=== PATIENT | male | born 1960 | race African-American/Black ===

== ENCOUNTER 2022-11-09 23:04 | Emergency (ER) | payer OTHER, SELFPAY ==
--- NOTE | ~2022-11-09 | CT_ITS ---
EXAMINATION: CT facial & cervical spine wo DATE: 11/10/2022 INDICATION: Head injury TECHNIQUE: Computed tomography (CT) of the maxillofacial region and cervical spine was performed with out intravenous contrast. The dose-length product (DLP) was 439 mGy-cm. Automated exposure control an d iterative reconstruction technique were employed. COMPARISON: None FINDINGS: MAXILLOFACIAL CT: There is complete opacification of the right maxillary sinus. Soft tissue extends into the right nasa l cavity. There is opacification of the right mastoid air cells. There is mucosal thickening of the e thmoidal air cells. No facial fracture is identified. Multiple dental caries are noted. There is a [place] anteriorly in the mandible CERVICAL SPINE CT: There are 2 mm of retrolisthesis of C5 on C6 and C6 on C7. There is severe loss of intervertebral dis c space height at C5-6 and C6-7. There is no fracture. The odontoid process is intact. There is multi level mild facet and uncovertebral joint osteoarthritis. A tracheostomy is noted. There is an old hea led fracture of the right clavicle. There is mild emphysema of the visualized lung apices. IMPRESSION: 1. No facial fracture identified. 2. Severe cervical spondylosis at C5-6 and C6-7 without acute findings. 3. Complete opacification of the right maxillary sinus with soft tissue extending into the nasal cavi ty. Direct visualization is recommended. 4. Right mastoiditis. Reviewed, dictated and finalized at location A. IMPRESSION: 1. No facial fracture identified. 2. Severe cervical spondylosis at C5-6 and C6-7 without acute findings. 3. Complete opacification of the right maxillary sinus with soft tissue extendi ng into the nasal cavity. Direct visualization is recommended. 4. Right mastoiditis.
--- NOTE | ~2022-11-09 | CT_ITS ---
EXAMINATION: CT brain wo con INDICATION: Head injury COMPARISON: None TECHNIQUE: Standard unenhanced head CT. The dose-length product (DLP) was 681 mGy-cm. The mA was adju sted according to patient size. Iterative reconstruction technique was employed. FINDINGS: Motion artifact slightly limits the examination. There is no acute intraparenchymal hemorrh age. No evidence of mass lesion. No evidence of acute infarction. There is an old right occipital inf arct. There is moderate periventricular and subcortical hypodensity probably related to small vessel ischemic disease. There is moderate prominence of the sulci and ventricles related to cerebral atroph y. Intracranial calcified cerebral atherosclerosis is noted. There are no extra-axial collections. Th ere is no mass effect or midline shift. The orbits and soft tissues are unremarkable. There is comple te opacification of the right maxillary sinus and near complete opacification of the right nasal cavi ty. IMPRESSION: 1. No acute intracranial abnormality. 2. Age related findings. Reviewed, dictated and finalized at location A.
[2022-11-09 23:09] VITALS: BP 143/93; PULSE 100; RESP 22; TEMP 36.9; O2SAT 98
--- NOTE | 2022-12-03 00:39 | ED.GENADULT ---
HPI - General Adult General Chief complaint: Fall Stated complaint: fall Time Seen by Provider: 11/09/22 23:27 History of Present Illness HPI narrative: Patient 62-year-old gentleman who presents the emergency department with chief complaint of fall from bed. Patient is a bedbound patient with a chronic tracheostomy that presents from a local nursing facility after he apparently rolled out of bed and struck his head. The nursing staff is unsure of how the patient managed to get out of the bed since he is immobile there reports that there is an abrasion to the nose and there is a small contusion to the forehead. The patient has no other complaints. Related Data Home Medications Medication Instructions Recorded Confirmed atorvastatin 40 mg tablet 40 mg feeding tube DAILY 11/14/22 11/15/22 clobazam 20 mg tablet 20 mg feeding tube BID 11/14/22 11/15/22 divalproex 125 mg capsule,delayed 500 mg QID 11/14/22 11/15/22 release sprinkle fluticasone propionate 50 1 spray intranasal DAILY 11/14/22 11/15/22 mcg/actuation nasal spray,suspension folic acid 1 mg tablet 1 mg feeding tube DAILY 11/14/22 11/15/22 lacosamide 200 mg tablet 200 mg feeding tube BID 11/14/22 11/15/22 tamsulosin 0.4 mg capsule 0.4 mg PO DAILY 11/14/22 11/15/22 aspirin 81 mg chewable tablet 81 mg feeding tube DAILY 11/15/22 11/15/22 cetirizine 10 mg disintegrating 10 mg feeding tube DAILY 11/15/22 11/15/22 tablet enoxaparin 40 mg/0.4 mL 40 mg subcut DAILY 11/15/22 11/15/22 subcutaneous syringe guaifenesin 200 mg/5 mL oral liquid 100 mg feeding tube Q6H 11/15/22 11/15/22 levetiracetam 1,000 mg tablet 2,000 mg PO BID 11/15/22 11/15/22 midazolam 5 mg/spray (0.1 mL) 1 spray intranasal Q10M PRN 11/15/22 11/15/22 nasal spray (Nayzilam) Seizure Activity thiamine HCl (vitamin B1) 100 mg 100 mg feeding tube DAILY 11/15/22 11/15/22 tablet Allergies Allergy/AdvReac Type Severity Reaction Status Date / Time clonazepam Allergy Unknown Verified 11/14/22 22:11 Review of Systems Review of Systems: ROS unobtainable: Yes unobtainable due to medical condition PMFSH Past Medical History Medical History AMS (altered mental status) History of multiple strokes Tracheostomy in place Vegetative state Social History Social History Smoking status: Never smoker Alcohol intake: never Substance use: never Substance use type: does not use Spiritual care concerns: No Exam Narrative: GENERAL: Well-appearing, well-nourished, and in no acute distress. HEAD: Normocephalic, abrasion to the nose and contusion of the forehead. EYES: PERRLA and EOMI. ENT: Nares clear, no rhinorrhea or epistaxis. Mucous membranes moist. NECK: Supple. Tracheostomy in place CHEST: Clear to auscultation. No respiratory distress. HEART: Regular rate and rhythm. No murmur heard. Normal peripheral pulses. ABDOMEN: Soft, nontender, nondistended, normal active bowel sounds. EXTREMITIES: Extremity showed no signs of trauma. No edema. SKIN: Warm, dry, no rash. NEURO: No new focal deficits. Alert and oriented to patient's baseline. . Course Vital Signs Vital signs: Vital Signs Temperature 36.9 C 11/09/22 23:09 Pulse Rate 100 11/09/22 23:09 Respiratory Rate 22 H 11/09/22 23:09 Blood Pressure 143/93 H 11/09/22 23:09 Pulse Oximetry 98 11/09/22 23:09 Oxygen Delivery Room Air 11/09/22 23:09 Temperature 36.9 C 11/09/22 23:09 Pulse Rate 100 11/09/22 23:09 Respiratory Rate 22 H 11/09/22 23:09 Blood Pressure 143/93 H 11/09/22 23:09 Pulse Oximetry 98 11/09/22 23:09 Oxygen Delivery Room Air 11/09/22 23:09 Medical Decision Making MDM Narrative Medical decision making narrative: Differential diagnosis includes intracranial injury, facial fracture, cervical spine fracture. Helical imaging was obtained of the he
== END 2022-11-10 05:22 ==
PROVIDERS: Emergency Provider Emergency Medicine; PCP Nurse Practitioner Family
DX: S00.83XA Contusion of other part of head, initial encounter (principal); S00.31XA Abrasion of nose, initial encounter; Z86.73 Personal history of transient ischemic attack (TIA), and cerebral infarction without residual deficits; R40.3 Persistent vegetative state; Z93.0 Tracheostomy status; Z74.01 Bed confinement status; Z79.82 Long term (current) use of aspirin; W06.XXXA Fall from bed, initial encounter
CPT/HCPCS: 70450; 70486; 72125; 99284

== ENCOUNTER 2022-11-14 18:23 | Inpatient (IN) | payer OTHER, SELFPAY ==
[2022-11-14] VITALS (22 sets, daily range): BP systolic 129–157; BP diastolic 59–83; PULSE 120–145; RESP 19–34; TEMP 37; O2SAT 35–100
--- NOTE | ~2022-11-14 | XR_ITS ---
XR chest 1V portable 11/16/2022 10:33 Indication: Right lower lobe collapse Procedure: AP portable chest Comparison: Comparison to multiple prior studies sequentially, with oldest reviewed study dated 11/14. Findings: Improving right basilar lung collapse with improved aeration. No significant effusion. No p neumothorax. Heart size normal. Left lung clear. Impression: 1: Improving right basilar lung collapse with improved aeration. Reviewed, dictated and finalized at location L. Impression: 1: Improving right basilar lung collapse with improved aeration.
--- NOTE | ~2022-11-14 | CT_ITS ---
Clinical Indication: Mediastinal shift, right-sided volume loss CT Scan of the Chest with Contrast: Technique: Contiguous sections were acquired throughout the chest after intravenous administration of 100 cc of Omnipaque 350. Dose reduction technique was used on this scan by utilizing automated expos ure control and iterative reconstruction technique. The dose-length product (DLP) was 481.19 mGy-cm. Findings: There is no evidence of any significant mediastinal, hilar or axillary lymphadenopathy. There is no f illing defect in the pulmonary arterial tree to suggest pulmonary embolus. There is no evidence of ao rtic dissection or aneurysm. Coronary artery calcifications are present. There is no evidence of pleural or pericardial effusion. There is complete, dense consolidation and volume loss of the right lower lobe, suggestive of atelect asis versus possibly pneumonia. Left lung is clear. Images through the upper abdomen reveal no abnormalities. Impression: Complete right lower lobe atelectasis. Underlying pneumonia cannot be excluded. Correlate for signs/s ymptoms of infection. Reviewed, dictated and finalized at location . Impression: Complete right lower lobe atelectasis. Underlying pneumonia cannot be excluded. Correlate for signs/symptoms of infection.
--- NOTE | ~2022-11-14 | XR_ITS ---
XR chest 1V portable 11/14/2022 18:55 Indication: Shortness of breath and congestion Procedure: AP portable chest Comparison: No prior studies for comparison. Findings: There is a tracheostomy tube present. There is right thoracic volume loss. Small right pleu ral effusion. Left lung clear. No focal consolidation of the right lung. No definite pneumothorax. Pr ominent right paratracheal soft tissue. Cannot exclude lymphadenopathy. Impression: 1: Right thoracic volume loss with mediastinal shift to the right. 2: Small right pleural effusion. Reviewed, dictated and finalized at location A. Impression: 1: Right thoracic volume loss with mediastinal shift to the right. 2: Small right pleural effusion.
--- NOTE | ~2022-11-14 | XR_ITS ---
Portable chest x-ray Comparison: 11/15/2022 Clinical History: Right lower lobe collapse Findings: Tracheostomy cannula present. There is extensive haziness bilaterally, right lung worse th an left. Cardiomediastinal silhouette is stable. Bones and soft tissues are unremarkable. Impression: Extensive hazy pulmonary disease, right lung worse than left. Correlate for mild pulmonary edema or i nfection, and/or atelectatic change. Tracheostomy cannula. Reviewed, dictated and finalized at location . Impression: Extensive hazy pulmonary disease, right lung worse than left. Correlate for mil d pulmonary edema or infection, and/or atelectatic change. Tracheostomy cannula.
--- NOTE | ~2022-11-14 | XR_ITS ---
XR chest 1V portable 11/15/2022 09:42 Indication: Right lower lobe collapse Procedure: AP portable chest Comparison: 11/14/2022 Findings: There is persistent collapse of the right lower lung with mediastinal shift to the right. S uperimposed pneumonia not excluded. No pneumothorax. No acute osseous abnormality. There is a tracheo stomy tube present. Impression: 1: Right lower lobe collapse. Cannot exclude underlying superimposed pneumonia. Reviewed, dictated and finalized at location [] Impression: 1: Right lower lobe collapse. Cannot exclude underlying superimposed pneumonia.
--- NOTE | ~2022-11-14 | XR_ITS ---
Portable chest x-ray Comparison: 11/16/2022 Clinical History: Right lower lobe collapse Findings: Tracheostomy cannula present. Small right pleural effusion present. There is right basilar airspace disease. There is discoid left basilar atelectasis. Cardiomediastinal silhouette is stable . Bones and soft tissues are unremarkable. Impression: Small right pleural effusion with probable right basilar pulmonary edema/atelectasis. Correlate curre ntly for pneumonia. Discoid left basilar atelectasis. Reviewed, dictated and finalized at location . Impression: Small right pleural effusion with probable right basilar pulmonary edema/atelec tasis. Correlate currently for pneumonia. Discoid left basilar atelectasis.
--- NOTE | 2022-11-14 18:32 | ECG_ITS ---
Measurements Intervals Alexander Rate: 129 P: 55 MD: 151 QRS: -10 QRSD: 83 T: 74 QT: 273 QTc: 401 Interpretive Statements SINUS TACHYCARDIA PREVIOUS ANTERIOR WALL NM ABNORMAL ECG NO PREVIOUS ECG AVAILABLE FOR COMPARISON Electronically Signed On 11-15-2022 15:44:20 CDT by Chai Lentz M.D.
--- NOTE | 2022-11-14 18:44 | ED.GENADULT ---
HPI - General Adult General Chief complaint: Shortness of Breath/Dyspnea <David Cash MD - Last Filed: 11/14/22 22:27> Stated complaint: difficulty in breathing with trach <David Cash MD - Last Filed: 11/14/22 22:27> Time Seen by Provider: 11/14/22 18:24 <David Cash MD - Last Filed: 11/14/22 22:27> History of Present Illness HPI narrative: 62-year-old male presented emerged department from local group home for evaluation of increased shortness of breath and hypoxia. Patient has history of epilepsy, dementia and patient has a tracheostomy. Patient was having hypoxia at the nursing facility and they are having trouble maintaining his oxygenation patient did have copious amounts of drainage from his tracheostomy. When EMS arrived they were able to help with suction and this helped with his oxygenation. Upon arrival to the emergency department patient is stable but does have very coarse lung sounds. Patient does have history of CVA, chronic respiratory failure, tracheostomy with humidified room air. <David Cash MD - Last Filed: 11/14/22 22:27> Related Data Home medications: Home Medications Medication Instructions Recorded Confirmed atorvastatin 40 mg tablet 40 mg feeding tube DAILY 11/14/22 11/15/22 clobazam 20 mg tablet 20 mg feeding tube BID 11/14/22 11/15/22 divalproex 125 mg capsule,delayed 500 mg QID 11/14/22 11/15/22 release sprinkle fluticasone propionate 50 1 spray intranasal DAILY 11/14/22 11/15/22 mcg/actuation nasal spray,suspension folic acid 1 mg tablet 1 mg feeding tube DAILY 11/14/22 11/15/22 lacosamide 200 mg tablet 200 mg feeding tube BID 11/14/22 11/15/22 tamsulosin 0.4 mg capsule 0.4 mg PO DAILY 11/14/22 11/15/22 aspirin 81 mg chewable tablet 81 mg feeding tube DAILY 11/15/22 11/15/22 cetirizine 10 mg disintegrating 10 mg feeding tube DAILY 11/15/22 11/15/22 tablet enoxaparin 40 mg/0.4 mL 40 mg subcut DAILY 11/15/22 11/15/22 subcutaneous syringe guaifenesin 200 mg/5 mL oral liquid 100 mg feeding tube Q6H 11/15/22 11/15/22 levetiracetam 1,000 mg tablet 2,000 mg PO BID 11/15/22 11/15/22 midazolam 5 mg/spray (0.1 mL) 1 spray intranasal Q10M PRN 11/15/22 11/15/22 nasal spray (Nayzilam) Seizure Activity scopolamine base 1 mg over 3 days 1 patch transdermal Q72H 11/15/22 11/15/22 transdermal patch thiamine HCl (vitamin B1) 100 mg 100 mg feeding tube DAILY 11/15/22 11/15/22 tablet <David Cash MD - Last Filed: 11/14/22 22:27> Allergies/adverse reactions: Allergies Allergy/AdvReac Type Severity Reaction Status Date / Time clonazepam Allergy Unknown Verified 11/14/22 22:11 <David Cash MD - Last Filed: 11/14/22 22:27> Review of Systems Review of Systems: ROS unobtainable: Yes unobtainable due to medical condition <David Cash MD - Last Filed: 11/14/22 22:27> Exam Narrative: APPEARANCE: Patient is nonverbal HEAD: normocephalic, atraumatic. EYES: PERRLA/EOMI, conjunctivae clear. NOSE: Normal no drainage EARS:TMS clear with good light reflex. THROAT: Pharynx clear, no exudate. NECK: Tracheostomy in place with no active drainage RESPIRATORY: Airway patent, respirations nonlabored. Clear to auscultation bilaterally, no rales, rhonchi, wheezing. CARDIOVASCULAR: Tachycardia ABDOMINAL: Soft, nontender, nondistended, normal bowel sounds MUSCULOSKELETAL: Moves all extremities. Strength/ROM intact, No edema, No calf tenderness. NEURO: Alert. At his baseline per nursing and EMS SKIN: Warm, dry. Normal Color <David Cash MD - Last Filed: 11/14/22 22:27> Course Course Emergency Course: 62-year-old male presented ED for evaluation of increased secretions through his tracheostomy tube. Patient was suctioned and had improvement of his oxygenation. Patient does not appear to have an oxygen requirement at the group home and is on humidified room air. Patient is on 4 L of blow-by oxygen while in t
[2022-11-14 18:53] LABS: Alveolar/Arterial O2 Gradient 124.3 mmHg; Base Excess ABG 4.1 mEq/l (+/-2.0); Device HIGH FLOW THERAPY; Fractional Inspired Oxygen 35 %; HCO3 ABG 27.4 mEq/l (22.0-26.0); Modified Allen's Test Pass; Oxygen Content ABG 18.3 %vol (16.0-22.0); Oxygen Saturation ABG 96.9 % (95.0-100.0); Oxyhemoglobin 94.7 % THb (90.0-100.0); PCO2 ABG 36.7 mmHg (35.0-45.0); PO2 ABG 82.6 mmHg (80.0-100.0); PO2 FiO2 Ratio Arterial Blood 2.36 %; Site Drawn RIGHT RADIAL; Total Hemoglobin 13.7 g/dL (12.0-18.0); pH ABG 7.491 (7.350-7.450)
[2022-11-14] MEDS: ALBUTEROL SULFATE NEB 2.5 MG/3 ML INH 5 MG INHALATION (18:56)
[2022-11-14 20:35] LABS: Basophils Percent Auto 0.1 % (0.2-1.2); Eosinophils Absolute Auto 0.1 K/mm3 (0-0.3); Eosinophils Percent Auto 0.4 % (0-4.4); Hematocrit 41.2 % (42.0-52.0); Hemoglobin 13.6 g/dL (14.0-18.0); Immature Granulocyte Absolute 0.06 K/mm3 (0.00-0.031); Immature Granulocyte Percent A 0.4 % (0-0.5); Immature Platelet Fraction Pct 14.4 % (0.9-11.2); Lymphocytes Absolute Auto 1.97 K/mm3 (0.9-3.2); Lymphocytes Percent Auto 14.2 % (18.3-44.2); Mean Corpuscular Hemoglobin 31.1 pg (26-34); Mean Corpuscular Volume 94.3 fl (80-100); Mean Platelet Volume 13.1 fl (7.4-10.4); Monocytes Percent Auto 14.3 % (2.6-8.5); Neutrophils Absolute Auto 9.8 K/mm3 (1.3-6.7); Neutrophils Percent Auto 70.6 % (45.5-73.1); Platelet Count Result 109 k/mm3 (150-375); Red Blood Count 4.37 M/mm3 (4.6-6.20); Red Cell Distribution Width 15.1 % (11.5-14.5); White Blood Count 13.9 K/mm3 (4.5-10.0)
[2022-11-14] MEDS: SODIUM CHLORIDE 0.9% IV 1,000 ML 999 ML IV CONT (20:44)
[2022-11-14 20:46] LABS: Alanine Aminotransferase 30 U/L (6-50); Albumin Level 3.8 g/dL (3.5-5.1); Alkaline Phosphatase 113 U/L (38-126); Anion Gap 6 mmol/L (8-16); Aspartate Amino Transferase 29 U/L (17-59); Bilirubin,Total 0.5 mg/dL (0.2-1.3); Blood Urea Nitrogen 14 mg/dL (9-20); Calcium 9.7 mg/dL (8.4-10.2); Carbon Dioxide 31 mmol/L (22-30); Chloride 101 mmol/L (98-107); Estimated CRCL calculation 90 ml/min; Estimated Glomerular Filt Rate > 60; Glucose 119 mg/dL (65-110); Potassium 4.4 mmol/L (3.4-5.0); Sodium 138 mmol/L (137-145)
[2022-11-14 20:54] LABS: NT Pro B Type Natriuretic Pept 309 pg/mL (19.9-100)
[2022-11-14 21:30] LABS: Influenza A QL RT-PCR Negative (Negative); Influenza B QL RT-PCR Negative (Negative); RSV RNA, RT-PCR Negative (Negative); SARS-CoV-2 RNA PCR Negative (Negative)
--- NOTE | 2022-11-14 21:38 | PM.IMHP ---
H&P: HPI History of Present Illness Date/Time: 11/14/22 21:38 Chief Complaint: Increased secretions Narrative: This is a 62-year-old male with past medical history significant for multiple strokes, bed reading, chronic respiratory failure with chronic tracheostomy, altered mental status, seizure disorder, benign prostatic hyperplasia, left AKA. Patient was brought for evaluation to the emergency room after he was noted to have worsened copious amount of secretions coming out of his tracheostomy which is greenish in color. Most of the history has been obtained upon reviewing medical records and discussion with emergency room doctor. Patient is unable to provide any history. In emergency room patient was noted to be tachycardic, a CT angiogram of the chest did not show acute pulmonary embolism but was significant for atelectasis, a chest x-ray was reported as: XR chest 1V portable 11/14/2022 18:55 Indication: Shortness of breath and congestion Procedure: AP portable chest Comparison: No prior studies for comparison. Findings: There is a tracheostomy tube present. There is right thoracic volume loss. Small right pleural effusion. Left lung clear. No focal consolidation of the right lung. No definite pneumothorax. Prominent right paratracheal soft tissue. Cannot exclude lymphadenopathy. Impression: 1: Right thoracic volume loss with mediastinal shift to the right. 2: Small right pleural effusion. Review of Systems Review of Systems: ROS unobtainable: Yes unobtainable due to medical condition (Tracheostomy) and unobtainable due to mental status (Encephalopathy) Meds Home Medications and Allergies Home Medications Medication Instructions Recorded Confirmed Type atorvastatin 40 mg tablet 40 mg feeding tube DAILY 11/14/22 11/15/22 History clobazam 20 mg tablet 20 mg feeding tube BID 11/14/22 11/15/22 History divalproex 125 mg capsule,delayed 500 mg QID 11/14/22 11/15/22 History release sprinkle fluticasone propionate 50 1 spray intranasal DAILY 11/14/22 11/15/22 History mcg/actuation nasal spray,suspension folic acid 1 mg tablet 1 mg feeding tube DAILY 11/14/22 11/15/22 History lacosamide 200 mg tablet 200 mg feeding tube BID 11/14/22 11/15/22 History tamsulosin 0.4 mg capsule 0.4 mg PO DAILY 11/14/22 11/15/22 History aspirin 81 mg chewable tablet 81 mg feeding tube DAILY 11/15/22 11/15/22 History cetirizine 10 mg disintegrating 10 mg feeding tube DAILY 11/15/22 11/15/22 History tablet enoxaparin 40 mg/0.4 mL 40 mg subcut DAILY 11/15/22 11/15/22 History subcutaneous syringe guaifenesin 200 mg/5 mL oral liquid 100 mg feeding tube Q6H 11/15/22 11/15/22 History levetiracetam 1,000 mg tablet 2,000 mg PO BID 11/15/22 11/15/22 History midazolam 5 mg/spray (0.1 mL) 1 spray intranasal Q10M PRN 11/15/22 11/15/22 History nasal spray (Nayzilam) Seizure Activity scopolamine base 1 mg over 3 days 1 patch transdermal Q72H 11/15/22 11/15/22 History transdermal patch thiamine HCl (vitamin B1) 100 mg 100 mg feeding tube DAILY 11/15/22 11/15/22 History tablet Allergies Allergy/AdvReac Type Severity Reaction Status Date / Time clonazepam Allergy Unknown Verified 11/14/22 22:11 Vital Signs Vital Signs - 24 hr 11/14/22 18:29 11/14/22 18:39 11/14/22 18:39 Temperature 98.6 F Pulse Rate 133 H 132 H Respiratory Rate 31 H Blood Pressure 148/77 H Pulse Oximetry 99 35 L Oxygen Delivery High Flow Therapy with Tr High Flow Therapy with Tr Oxygen Flow Rate 30 30 Fraction of Inspired Oxygen 35 11/14/22 19:03 11/14/22 18:35 11/14/22 19:19 Temperature Pulse Rate 120 H 130 H Respiratory Rate 30 H 32 H Blood Pressure Pulse Oximetry 99 Oxygen Delivery High Flow Therapy with Tr Oxygen Flow Rate 30 Fraction of Inspired Oxygen 35 11/14/22 19:21 11/14/22 19:00 11/14/22 19:15 Temperature Pulse Rate 125 H 132 H 140 H Respiratory Rate 30 H 32 H 28 H Blood Pressure 1
[2022-11-14] MEDS: CEFEPIME 2 GM/NS 50 ML 2 GM/50 ML BAG IVPB (22:41)
[2022-11-14] MEDS: AZITHROMYCIN 500 MG/NS 250 ML 500 MG/250 ML BAG 250 MG IVPB (22:41)
[2022-11-14] MEDS: ENOXAPARIN 80 MG/0.8 ML SYRINGE 67 MG SUB-Q (22:42)
[2022-11-15] VITALS (24 sets, daily range): BP systolic 112–147; BP diastolic 59–93; PULSE 79–123; RESP 18–30; TEMP 36.4–37.4; O2SAT 90–100; BMI 20.6
--- NOTE | 2022-11-15 01:52 | ADMGEN ---
This patient, Bi Tabor, was admitted to IMU Room 206-01. Patient/family oriented to hospital policies and general routines including ID bracelet, bed and alarms, visiting hours, pain management, procedures, bathroom and other care routines, personal items, smoking policy, room service/diet, and visiting hours. Information on how to activate the Rapid Response Team has been discussed. Patient/Family are encouraged to report perceived risks to care and to ask questions if they do not understand what they are told or what they should do.
[2022-11-15] MEDS: CEFEPIME 2 GM/NS 50 ML 2 GM/50 ML BAG IVPB ×3 (05:23→21:12)
[2022-11-15 05:34] LABS: Estimated CRCL calculation 123 ml/min; Estimated Glomerular Filt Rate > 60
[2022-11-15] MEDS: THIAMINE HCL 100 MG TABLET FEED TUBE (09:17)
[2022-11-15] MEDS: ASPIRIN 81 MG CHEWABLE TABLET FEED TUBE (09:17)
[2022-11-15] MEDS: DIVALPROEX SODIUM SPRINKLE 125 MG CAP.DR 500 MG FEED TUBE ×4 (09:17→20:54)
[2022-11-15] MEDS: FOLIC ACID 1 MG TABLET FEED TUBE (09:17)
[2022-11-15] MEDS: ATORVASTATIN 40 MG TABLET FEED TUBE (09:17)
[2022-11-15] MEDS: levETIRAcetam ORAL SOL 500 MG/5 ML UDC 2000 MG FEED TUBE ×2 (09:18→16:45)
[2022-11-15] MEDS: FLUTICASONE PROPIONATE 0.05% NA SPR 16 GM BTL (*BKC) 1 SPRAY NASAL (09:18)
[2022-11-15] MEDS: WATER, STERILE FOR INJECTION 10 ML VIAL 30 ML XX (09:18)
[2022-11-15] MEDS: LACOSAMIDE (*CRX) 200 MG TABLET FEED TUBE ×2 (09:21→16:48)
[2022-11-15] MEDS: LORATADINE 10 MG TABLET FEED TUBE (09:22)
[2022-11-15] MEDS: ENOXAPARIN 40 MG/0.4 ML SYRINGE SUB-Q (09:24)
[2022-11-15] MEDS: SCOPOLAMINE 1.5 MG PATCH 1 MG TRANSDERM (09:31)
[2022-11-15] MEDS: TAMSULOSIN HCL 0.4 MG CAPSULE XX (10:50)
[2022-11-15] MEDS: diazePAM (*CRX) 5 MG TABLET PO (10:50)
--- NOTE | 2022-11-15 11:23 | PM.IMPN ---
Progress Note: A&P Assessment and Plan (1) Increased tracheal secretions: Code(s): J39.8 - Other specified diseases of upper respiratory tract Status: Acute Assessment and Plan: Admit to IMU Patient started on cefepime vanc and Zithromax Chest x-ray significant for atelectasis likely secondary to mucus plugging Pulmonology consult will likely need bronchoscopy Breathing treatments q.4 hours (2) Hypoxia: Code(s): R09.02 - Hypoxemia Status: Acute Assessment and Plan: Patient has been maintaining oxygen saturation Currently on Airvo Earlier on patient was on trach collar (3) Unilateral complete AKA: Code(s): S78.119A - Complete traumatic amputation at level between unspecified hip and knee, initial encounter Status: Acute Assessment and Plan: Fall precautions (4) Tracheostomy in place: Code(s): Z93.0 - Tracheostomy status Status: Acute Assessment and Plan: Tracheostomy care (5) Chronic respiratory failure with hypoxia: Code(s): J96.11 - Chronic respiratory failure with hypoxia Status: Acute Assessment and Plan: Patient has a chronic trach on trach collar (6) Vegetative state: Code(s): R40.3 - Persistent vegetative state Status: Acute Assessment and Plan: Unchanged (7) History of multiple strokes: Code(s): Z86.73 - Personal history of transient ischemic attack (TIA), and cerebral infarction without residual deficits Status: Acute Assessment and Plan: Unchanged (8) AMS (altered mental status): Code(s): R41.82 - Altered mental status, unspecified Status: Acute Assessment and Plan: Supportive care Continue to monitor Subjective Date/time seen: 11/15/22 11:23 Interval history: No acute issues overnight Exam Narrative: Patient is laying in a stretcher Const: General: comfortable, no acute distress, well developed, alert, awake, ill appearing, lethargic, patient obtunded, average body habitus and thin Nutritional Appearance: average body habitus and thin Orientation/consciousness: patient oriented x3, patient obtunded and lethargic HENMT: Head: normal to inspection, normocephalic and atraumatic Ears: hearing grossly normal bilaterally Face/Nose/Sinus: normal facial exam Face and sinus: normal facial exam Other: Trach in place noted heavy secretions greenish Eyes: General: appearance normal, both eyes and all related structures Pupils: Equal, round and reactive pupils present EOM: EOMs intact bilaterally Neck: Neck: full ROM, no lymphadenopathy and no JVD Thyroid: thyroid normal Lymphatic: no lymphadenopathy noted Resp: Effort & Inspection: normal respiratory effort and able to speak in complete sentences Auscultation: clear to auscultation bilaterally, rales, diminished lung sounds and other (Course of breaths sounds) Cardio: Jugular venous distension: no JVD Rate: regular rate Rhythm: regular rhythm Heart sounds: S1 normal heart sound present and S2 normal heart sound present GI: Inspection: other (PEG tube in place) : General: Yes deferred Skin: Rashes: no rashes Wounds: no wounds Neuro: General: patient oriented x3, CN's II-XI intact bilaterally, patient obtunded and Unable to assess gait Cranial nerves: Yes CN's II-XII intact bilaterally, Yes Equal, round and reactive pupils present, Yes Bilaterally intact EOM present and Yes facial symmetry Cognition (Neuro): normal cognition and abnormal cognition (Lethargy, obtundation) Speech: normal speech Gait exam (Neuro): Normal gait present and Unable to assess gait Motor exam (neuro): 5/5 motor strength present throughout Extrem: General: normal to inspection, full ROM, no joint enlargement and no pedal edema Other: Left AKA Right leg Unna boot is on Objective Data Vital Signs Vital Signs: Vital Signs - 24 hr 11/14/22 18:29 11/14/22 18:39 11/14/22 18:39 Temperur
--- NOTE | 2022-11-15 11:57 | PM.CNPUL ---
Assessment and Plan Assessment and plan (1) Lung collapse: Code(s): J98.19 - Other pulmonary collapse Status: Acute Assessment and Plan: patient with a history of CVA, dementia, tracheostomy and PEG tube and persistent vegetative state is written in the chart. Presented to [facility] on 11/14/2022 with shortness of breath, hypoxemia and increased green secretions from his tracheostomy and has a right lower lobe collapse. I have no prior imaging to determine if the right lower lobe collapse is an acute, recurrent or chronic problem. Covid, influenza and RSV RT PCR studies negative. Etiology of the right lower lobe collapse includes pneumonia, mucus plugging, aspiration of foreign body and or cancer. 11/15 Patient is afebrile, patient is currently on high-flow nasal cannula at 30 L and 28% FiO2 with saturations 95%. I spoke with respiratory therapy and he had minimal secretions with suctioning this morning. Chest x-ray with continued right lower lobe collapse. Plan: agree with treating for pneumonia from living facility with cefepime, vancomycin and azithromycin, all day 2. I will send sputum culture, urine Legionella, urine pneumococcal and serum mycoplasma IgM titers. Albuterol, ipratropium, dornase, Mucomyst, chest PT and vest therapy were added. I will increase his guaifenesin liquid to 400 mg p.o. q.4 hours. I have talked to respiratory therapy and the bedside nursing staff and each service will alternatively suction the patient every 4 hours so that he gets suctioned every 2 hours. I will repeat a chest x-ray in the morning. Will follow with you. History of Present Illness History of Present Illness Consult date: 11/15/22 Chief complaint: Resp Failure Narrative: 11/15/2022: This is a new pulmonary consultation for right lower lobe lung collapse. 62-year-old male with a history of CVA, chronic respiratory failure status post tracheostomy and PEG tube, seizure disorder, dementia, left AKA presented from the care home on 11/14/2022 for shortness of breath, hypoxia and increased green secretions from his tracheostomy. The patient is nonverbal and history was obtained from the chart In the emergency department the patient had a white blood cell count of 13.9, eosinophils 0.4%, creatinine 0.7, BNP 309, ABG on 35% FiO2 7.49/37/83. [place] id, influenza and RSV RT PCR studies negative. Chest x-ray demonstrated right lower lobe collapse with a tracheostomy in place. CT angiogram of the chest showed negative PE, right lower lobe collapse. Patient was admitted to the hospital and treated for possible pneumonia with vancomycin, azithromycin and cefepime all started on 11/14. 11/15/22: Patient is nonverbal, follows no commands and does not regard verbal or painful stimuli. Patient is currently on high-flow nasal cannula at 30 L and 28% FiO2 with saturations 95%. I spoke with respiratory therapy and he had minimal secretions with suctioning this morning. Chest x-ray with continued right lower lobe collapse. Albuterol, ipratropium, dornase, Mucomyst, chest PT and vest therapy were added this morning. DATA: 11/14/22: Clinical Indication: Mediastinal shift, right-sided volume loss CT Scan of the Chest with Contrast: Technique: Contiguous sections were acquired throughout the chest after intravenous administration of 100 cc of Omnipaque 350. Dose reduction technique was used on this scan by utilizing automated exposure control and iterative reconstruction technique. The dose-length product (DLP) was 481.19 mGy-cm. Findings: There is no evidence of any significant mediastinal, hilar or axillary lymphadenopathy. There is no filling defect in the pulmonary arterial tree to suggest pulmonary embolus. There is no evidence of aortic dissection or aneurysm. Coronary artery calcifications are present. There is no evidence of pleural or pericardial effusion. There is complete, dense conso
[2022-11-15] MEDS: VANCOMYCIN 1,250 MG/NS 250 ML 1,250 MG/250 ML BAG 166.67 MG IVPB (12:01)
[2022-11-15] MEDS: guaiFENesin 200 MG/10 ML UDC 100 MG FEED TUBE (12:02)
[2022-11-15] MEDS: IPRATROPIUM BR 0.02% INH SOLN 0.5 MG/2.5 ML VIAL INHALATION ×3 (12:46→19:55)
[2022-11-15] MEDS: ALBUTEROL SULFATE NEB 2.5 MG/3 ML INH INHALATION ×3 (12:46→19:54)
[2022-11-15] MEDS: ACETYLCYSTEINE 20% INHAL SOLN 800 MG/4 ML VIAL 200 MG INHALATION ×2 (12:47→19:54)
--- NOTE | 2022-11-15 13:15 | PHAR ---
Home med verified: Clobazam 20mg Take 1 tablet per G-tube BID. Br[facility] to [facility] blister [facility] #30 tablets total in 1 card
[2022-11-15] MEDS: guaiFENesin 200 MG/10 ML UDC 400 MG PO ×2 (16:42→20:54)
[2022-11-15] MEDS: DORNASE ALFA INH SOLN 1 MG/ML 2.5 ML AMP 2.5 MG INHALATION (19:54)
[2022-11-15] MEDS: AZITHROMYCIN 500 MG/NS 250 ML 500 MG/250 ML BAG 250 MG IVPB (21:50)
[2022-11-15] MEDS: VANCOMYCIN 1,250 MG/NS 250 ML 1,250 MG/250 ML BAG IVPB (23:14)
[2022-11-16] VITALS (25 sets, daily range): BP systolic 113–136; BP diastolic 60–75; PULSE 93–113; RESP 16–22; TEMP 36.4–36.8; O2SAT 95–100; BMI 20.6
[2022-11-16] MEDS: ALBUTEROL SULFATE NEB 2.5 MG/3 ML INH INHALATION ×6 (00:10→20:28)
[2022-11-16] MEDS: IPRATROPIUM BR 0.02% INH SOLN 0.5 MG/2.5 ML VIAL INHALATION ×6 (00:10→20:28)
[2022-11-16] MEDS: ACETYLCYSTEINE 20% INHAL SOLN 800 MG/4 ML VIAL 200 MG INHALATION ×4 (04:21→20:28)
[2022-11-16 05:21] LABS: Estimated CRCL calculation 150 ml/min; Estimated Glomerular Filt Rate > 60
[2022-11-16] MEDS: CEFEPIME 2 GM/NS 50 ML 2 GM/50 ML BAG IVPB ×3 (06:07→21:41)
[2022-11-16] MEDS: DORNASE ALFA INH SOLN 1 MG/ML 2.5 ML AMP 2.5 MG INHALATION (08:02)
[2022-11-16 09:26] LABS: Basophils Percent Auto 0.2 % (0.2-1.2); Eosinophils Absolute Auto 0.1 K/mm3 (0-0.3); Eosinophils Percent Auto 1.6 % (0-4.4); Hematocrit 38.2 % (42.0-52.0); Hemoglobin 11.9 g/dL (14.0-18.0); Immature Granulocyte Absolute 0.03 K/mm3 (0.00-0.031); Immature Granulocyte Percent A 0.4 % (0-0.5); Immature Platelet Fraction Pct 21.1 % (0.9-11.2); Lymphocytes Absolute Auto 2.04 K/mm3 (0.9-3.2); Lymphocytes Percent Auto 24.5 % (18.3-44.2); Mean Corpuscular HGB Conc 31.2 g/dl (32-36); Mean Corpuscular Hemoglobin 30.5 pg (26-34); Mean Corpuscular Volume 97.9 fl (80-100); Monocytes Absolute Auto 0.9 K/mm3 (0.1-0.6); Monocytes Percent Auto 10.3 % (2.6-8.5); Neutrophils Absolute Auto 5.3 K/mm3 (1.3-6.7); Platelet Count Result 81 k/mm3 (150-375); Red Cell Distribution Width 15.2 % (11.5-14.5); White Blood Count 8.3 K/mm3 (4.5-10.0)
[2022-11-16] MEDS: FLUTICASONE PROPIONATE 0.05% NA SPR 16 GM BTL (*BKC) 1 SPRAY NASAL (10:00)
[2022-11-16] MEDS: DIVALPROEX SODIUM SPRINKLE 125 MG CAP.DR 500 MG FEED TUBE ×4 (10:01→21:37)
[2022-11-16] MEDS: levETIRAcetam ORAL SOL 500 MG/5 ML UDC 2000 MG FEED TUBE ×2 (10:01→18:08)
[2022-11-16] MEDS: guaiFENesin 200 MG/10 ML UDC 400 MG PO ×5 (10:01→23:56)
[2022-11-16] MEDS: FOLIC ACID 1 MG TABLET FEED TUBE (10:02)
[2022-11-16] MEDS: TAMSULOSIN HCL 0.4 MG CAPSULE XX (10:02)
[2022-11-16] MEDS: LORATADINE 10 MG TABLET FEED TUBE (10:03)
[2022-11-16] MEDS: ENOXAPARIN 40 MG/0.4 ML SYRINGE SUB-Q (10:03)
[2022-11-16] MEDS: ASPIRIN 81 MG CHEWABLE TABLET FEED TUBE (10:03)
[2022-11-16] MEDS: ATORVASTATIN 40 MG TABLET FEED TUBE (10:03)
[2022-11-16] MEDS: THIAMINE HCL 100 MG TABLET FEED TUBE (10:03)
[2022-11-16 10:17] LABS: Anion Gap 7 mmol/L (8-16); Blood Urea Nitrogen 17 mg/dL (9-20); Calcium 9.3 mg/dL (8.4-10.2); Carbon Dioxide 28 mmol/L (22-30); Chloride 106 mmol/L (98-107); Estimated CRCL calculation 104 ml/min; Estimated Glomerular Filt Rate > 60; Glucose 115 mg/dL (65-110); Sodium 141 mmol/L (137-145)
--- NOTE | 2022-11-16 10:17 | PM.PNPUL ---
Progress Note: A&P Assessment and Plan (1) Lung collapse: Code(s): J98.19 - Other pulmonary collapse Status: Acute Assessment and Plan: patient with a history of CVA, dementia, tracheostomy and PEG tube and persistent vegetative state is written in the chart. Presented to [facility] on 11/14/2022 with shortness of breath, hypoxemia and increased green secretions from his tracheostomy and has a right lower lobe collapse. I have no prior imaging to determine if the right lower lobe collapse is an acute, recurrent or chronic problem. Covid, influenza and RSV RT PCR studies negative. Etiology of the right lower lobe collapse includes pneumonia, mucus plugging, aspiration of foreign body and or cancer. 11/15 Patient is afebrile, patient is currently on high-flow nasal cannula at 30 L and 28% FiO2 with saturations 95%. I spoke with respiratory therapy and he had minimal secretions with suctioning this morning. Chest x-ray with continued right lower lobe collapse. Plan: agree with treating for pneumonia from living facility with cefepime, vancomycin and azithromycin, all day 2. I will send sputum culture, urine Legionella, urine pneumococcal and serum mycoplasma IgM titers. Albuterol, ipratropium, dornase, Mucomyst, chest PT and vest therapy were added. I will increase his guaifenesin liquid to 400 mg p.o. q.4 hours. I have talked to respiratory therapy and the bedside nursing staff and each service will alternatively suction the patient every 4 hours so that he gets suctioned every 2 hours. I will repeat a chest x-ray in the morning. 11/16 Patient is more alert he tracks with his eyes, attempts to mouth words, raised his hands off the bed and attempted to show 2 fingers with both upper extremities. He wiggled his right toes. He did have 1 spontaneous cough while I was in the room. When I suctioned him he had some secretions and did cough with suctioning. Currently is on 20 L and 25 7% FiO2 with saturations 96%. Chest x-ray shows expanded right lower lobe with hazy right greater than left infiltrates bilaterally. He is afebrile. Plan: Continue cefepime, vancomycin and azithromycin, all day 3. I will discontinue dornase and continue albuterol, ipratropium, Mucomyst, chest PT and vest therapy. Continue guaifenesin 400 Q for and suction Q 2 hours. I will repeat a chest x-ray in the morning. Will follow with you. Subjective Date/time seen: 11/16/22 10:17 Interval history: 11/15/2022:? This is a new pulmonary consultation for right lower lobe lung collapse.? 62-year-old male with a history of CVA, chronic respiratory failure status post tracheostomy and PEG tube, seizure disorder, dementia, left AKA presented from the detention on 11/14/2022 for shortness of breath, hypoxia and increased green secretions from his tracheostomy.? The patient is nonverbal and history was obtained from the chart In the emergency department the patient had a white blood cell count of 13.9, eosinophils 0.4%, creatinine 0.7, BNP 309, ABG on 35% FiO2 7.49/37/83.? [place] id, influenza and RSV RT PCR studies negative.? Chest x-ray demonstrated right lower lobe collapse with a tracheostomy in place.? CT angiogram of the chest showed negative PE, right lower lobe collapse.? Patient was admitted to the hospital and treated for possible pneumonia with vancomycin, azithromycin and cefepime all started on 11/14. 11/15/22: ? Patient is nonverbal, follows no commands and does not regard verbal or painful stimuli.? Patient is currently on high-flow nasal cannula at 30 L and 28% FiO2 with saturations 95%.? I spoke with respiratory therapy and he had minimal secretions with suctioning this morning. ? Chest x-ray with continued right lower lobe collapse.? Albuterol, ipratropium, dornase, Mucomyst, chest PT and vest therapy were added this morning. later in the day and large mucus plug was suctioned through his tracheostomy. 11/16 Patient is
[2022-11-16 10:24] LABS: Vancomycin Trough 13.5 ug/mL (10.0-20.0)
[2022-11-16] MEDS: LACOSAMIDE (*CRX) 200 MG TABLET FEED TUBE ×2 (10:31→18:10)
--- NOTE | 2022-11-16 12:29 | PM.IMPN ---
Progress Note: A&P Assessment and Plan (1) Increased tracheal secretions: Code(s): J39.8 - Other specified diseases of upper respiratory tract Status: Acute Assessment and Plan: Admit to IMU Patient started on cefepime vanc and Zithromax Chest x-ray is slightly worse. Appreciate pulmonary input. Clinically patient is about the same. (2) Hypoxia: Code(s): R09.02 - Hypoxemia Status: Acute Assessment and Plan: Continue supplemental oxygen. (3) Unilateral complete AKA: Code(s): S78.119A - Complete traumatic amputation at level between unspecified hip and knee, initial encounter Status: Acute Assessment and Plan: Fall precautions (4) Tracheostomy in place: Code(s): Z93.0 - Tracheostomy status Status: Acute Assessment and Plan: Tracheostomy care (5) Chronic respiratory failure with hypoxia: Code(s): J96.11 - Chronic respiratory failure with hypoxia Status: Acute Assessment and Plan: Patient has a chronic trach on trach collar (6) Vegetative state: Code(s): R40.3 - Persistent vegetative state Status: Acute Assessment and Plan: Unchanged (7) History of multiple strokes: Code(s): Z86.73 - Personal history of transient ischemic attack (TIA), and cerebral infarction without residual deficits Status: Acute Assessment and Plan: Unchanged (8) AMS (altered mental status): Code(s): R41.82 - Altered mental status, unspecified Status: Acute Assessment and Plan: Supportive care Continue to monitor Subjective Date/time seen: 11/16/22 12:29 Interval history: No new complaints. Appears to be breathing about the same. Exam Narrative: Patient is laying in a stretcher Const: General: comfortable, no acute distress, well developed, alert, awake, ill appearing, lethargic, patient obtunded, average body habitus and thin Nutritional Appearance: average body habitus and thin Orientation/consciousness: patient oriented x3, patient obtunded and lethargic HENMT: Head: normal to inspection, normocephalic and atraumatic Ears: hearing grossly normal bilaterally Face/Nose/Sinus: normal facial exam Face and sinus: normal facial exam Other: Trach in place noted heavy secretions greenish Eyes: General: appearance normal, both eyes and all related structures Pupils: Equal, round and reactive pupils present EOM: EOMs intact bilaterally Neck: Neck: full ROM, no lymphadenopathy and no JVD Thyroid: thyroid normal Lymphatic: no lymphadenopathy noted Resp: Effort & Inspection: normal respiratory effort and able to speak in complete sentences Auscultation: clear to auscultation bilaterally, rales, diminished lung sounds and other (Course of breaths sounds) Cardio: Jugular venous distension: no JVD Rate: regular rate Rhythm: regular rhythm Heart sounds: S1 normal heart sound present and S2 normal heart sound present GI: Inspection: other (PEG tube in place) : General: Yes deferred Skin: Rashes: no rashes Wounds: no wounds Neuro: General: patient oriented x3, CN's II-XI intact bilaterally, patient obtunded and Unable to assess gait Cranial nerves: Yes CN's II-XII intact bilaterally, Yes Equal, round and reactive pupils present, Yes Bilaterally intact EOM present and Yes facial symmetry Cognition (Neuro): normal cognition and abnormal cognition (Lethargy, obtundation) Speech: normal speech Gait exam (Neuro): Normal gait present and Unable to assess gait Motor exam (neuro): 5/5 motor strength present throughout Extrem: General: normal to inspection, full ROM, no joint enlargement and no pedal edema Other: Left AKA Right leg Unna boot is on Objective Data Vital Signs Vital Signs: Vital Signs - 24 hr 11/15/22 12:40 11/15/22 12:58 11/15/22 16:00 Temperature 97.8 F Pulse Rate 90 92 92 Respiratory Rate 20 18 18 Blood Pressure 125/78 Pulse Oximetry
[2022-11-16] MEDS: AZITHROMYCIN 500 MG/NS 250 ML 500 MG/250 ML BAG 250 MG IVPB (21:42)
[2022-11-17] VITALS (11 sets, daily range): BP systolic 121; BP diastolic 67; PULSE 95–120; RESP 18–22; TEMP 36.3; O2SAT 94–97
[2022-11-17] MEDS: ALBUTEROL SULFATE NEB 2.5 MG/3 ML INH INHALATION ×4 (01:07→12:58)
[2022-11-17] MEDS: IPRATROPIUM BR 0.02% INH SOLN 0.5 MG/2.5 ML VIAL INHALATION ×4 (01:08→12:58)
[2022-11-17] MEDS: ACETYLCYSTEINE 20% INHAL SOLN 800 MG/4 ML VIAL 200 MG INHALATION ×2 (01:16→09:01)
[2022-11-17] MEDS: guaiFENesin 200 MG/10 ML UDC 400 MG PO ×3 (05:00→12:41)
[2022-11-17] MEDS: CEFEPIME 2 GM/NS 50 ML 2 GM/50 ML BAG IVPB (05:30)
[2022-11-17 06:59] LABS: Basophils Percent Auto 0.3 % (0.2-1.2); Eosinophils Absolute Auto 0.3 K/mm3 (0-0.3); Eosinophils Percent Auto 4.7 % (0-4.4); Hematocrit 32.4 % (42.0-52.0); Hemoglobin 10.3 g/dL (14.0-18.0); Immature Granulocyte Absolute 0.01 K/mm3 (0.00-0.031); Immature Granulocyte Percent A 0.2 % (0-0.5); Lymphocytes Absolute Auto 1.61 K/mm3 (0.9-3.2); Lymphocytes Percent Auto 28.1 % (18.3-44.2); Mean Corpuscular HGB Conc 31.8 g/dl (32-36); Mean Corpuscular Hemoglobin 30.5 pg (26-34); Mean Corpuscular Volume 95.9 fl (80-100); Mean Platelet Volume 12.5 fl (7.4-10.4); Monocytes Absolute Auto 0.7 K/mm3 (0.1-0.6); Monocytes Percent Auto 11.7 % (2.6-8.5); Neutrophils Absolute Auto 3.2 K/mm3 (1.3-6.7); Platelet Count Result 119 k/mm3 (150-375); Red Blood Count 3.38 M/mm3 (4.6-6.20); Red Cell Distribution Width 14.9 % (11.5-14.5); White Blood Count 5.7 K/mm3 (4.5-10.0)
[2022-11-17 07:08] LABS: Anion Gap 5 mmol/L (8-16); Blood Urea Nitrogen 15 mg/dL (9-20); Carbon Dioxide 28 mmol/L (22-30); Chloride 106 mmol/L (98-107); Estimated CRCL calculation 123 ml/min; Estimated Glomerular Filt Rate > 60; Glucose 107 mg/dL (65-110); Potassium 4.4 mmol/L (3.4-5.0); Sodium 139 mmol/L (137-145)
[2022-11-17] MEDS: DIVALPROEX SODIUM SPRINKLE 125 MG CAP.DR 500 MG FEED TUBE ×2 (08:41→12:41)
[2022-11-17] MEDS: ATORVASTATIN 40 MG TABLET FEED TUBE (08:41)
[2022-11-17] MEDS: FOLIC ACID 1 MG TABLET FEED TUBE (08:41)
[2022-11-17] MEDS: TAMSULOSIN HCL 0.4 MG CAPSULE XX (08:41)
[2022-11-17] MEDS: LORATADINE 10 MG TABLET FEED TUBE (08:41)
[2022-11-17] MEDS: THIAMINE HCL 100 MG TABLET FEED TUBE (08:41)
[2022-11-17] MEDS: ENOXAPARIN 40 MG/0.4 ML SYRINGE SUB-Q (08:42)
[2022-11-17] MEDS: levETIRAcetam ORAL SOL 500 MG/5 ML UDC 2000 MG FEED TUBE (08:42)
[2022-11-17] MEDS: FLUTICASONE PROPIONATE 0.05% NA SPR 16 GM BTL (*BKC) 1 SPRAY NASAL (08:42)
[2022-11-17] MEDS: LACOSAMIDE (*CRX) 200 MG TABLET FEED TUBE (08:54)
[2022-11-17] MEDS: ASPIRIN 81 MG CHEWABLE TABLET FEED TUBE (08:54)
--- NOTE | 2022-11-17 09:32 | PM.PNPUL ---
Progress Note: A&P Assessment and Plan (1) Lung collapse: Code(s): J98.19 - Other pulmonary collapse Status: Acute Assessment and Plan: patient with a history of CVA, dementia, tracheostomy and PEG tube and persistent vegetative state is written in the chart. Presented to [facility] on 11/14/2022 with shortness of breath, hypoxemia and increased green secretions from his tracheostomy and has a right lower lobe collapse. I have no prior imaging to determine if the right lower lobe collapse is an acute, recurrent or chronic problem. Covid, influenza and RSV RT PCR studies negative. Etiology of the right lower lobe collapse includes pneumonia, mucus plugging, aspiration of foreign body and or cancer. 11/15 Patient is afebrile, patient is currently on high-flow nasal cannula at 30 L and 28% FiO2 with saturations 95%. I spoke with respiratory therapy and he had minimal secretions with suctioning this morning. Chest x-ray with continued right lower lobe collapse. Plan: agree with treating for pneumonia from living facility with cefepime, vancomycin and azithromycin, all day 2. I will send sputum culture, urine Legionella, urine pneumococcal and serum mycoplasma IgM titers. Albuterol, ipratropium, dornase, Mucomyst, chest PT and vest therapy were added. I will increase his guaifenesin liquid to 400 mg p.o. q.4 hours. I have talked to respiratory therapy and the bedside nursing staff and each service will alternatively suction the patient every 4 hours so that he gets suctioned every 2 hours. I will repeat a chest x-ray in the morning. 11/16 Patient is more alert he tracks with his eyes, attempts to mouth words, raised his hands off the bed and attempted to show 2 fingers with both upper extremities. He wiggled his right toes. He did have 1 spontaneous cough while I was in the room. When I suctioned him he had some secretions and did cough with suctioning. Currently is on 20 L and 25 7% FiO2 with saturations 96%. Chest x-ray shows expanded right lower lobe with hazy right greater than left infiltrates bilaterally. He is afebrile. 11/17 Patient remains alert, following simple commands by showing fingers and wiggling toes, mild in words, white blood cell count 5.7, he is afebrile, creatinine 0.5. Chest x-ray with continued expansion of the right lower lobe with bibasilar infiltrates with no significant change. Currently is on 20 L flow 21% FiO2 with saturations 94%. Plan: Continue cefepime, vancomycin and azithromycin, all day 4. I will discontinue mucomyst and continue albuterol, ipratropium, chest PT and vest therapy. Decrease guaifenesin to 400 TID and suction Q 2 hours. I would treat the patient with azithromycin for 5 days and continue cefepime and vancomycin while he is in the hospital for a total of 10 days and if he is discharged earlier than that would discharge on Levaquin and cefdinir to complete 10 days antibiotic. from a pulmonary perspective he is ready to be discharged on these pulmonary medications: Levaquin 750 mg per tube q.day and cefdinir 300 mg per tube b.i.d. to complete a total of 10 days antibiotics. albuterol 2.5 mg nebulized and ipratropium 0.5 mg nebulized q.i.d. Vibratory vest therapy and chest PT QID tracheal suctioning q.2 hours throughout the day and night guaifenesin 400 mg per tube t.i.d. Discussed with Dr. Sim, will sign off, call with questions. Subjective Date/time seen: 11/17/22 09:32 Interval history: 11/15/2022:? This is a new pulmonary consultation for right lower lobe lung collapse.? 62-year-old male with a history of CVA, chronic respiratory failure status post tracheostomy and PEG tube, seizure disorder, dementia, left AKA presented from the detention on 11/14/2022 for shortness of breath, hypoxia and increased green secretions from his tracheostomy.? The patient is nonverbal and history was obtained from the chart In the emergency department the
--- NOTE | 2022-11-17 11:30 | PM.DS ---
DS: Admitting Diagnosis Discharge Date 11/17/2022 Admitting Diagnosis Acute respiratory failure DS: Discharge Diagnosis Discharge Diagnosis (1) Lung collapse: Code(s): J98.19 - Other pulmonary collapse Status: Acute (2) History of multiple strokes: Code(s): Z86.73 - Personal history of transient ischemic attack (TIA), and cerebral infarction without residual deficits Status: Acute (3) Vegetative state: Code(s): R40.3 - Persistent vegetative state Status: Acute (4) Tracheostomy in place: Code(s): Z93.0 - Tracheostomy status Status: Acute DS: Summary Hospital Course Hospital Course: (1) Lung collapse: ?Code(s): J98.19 - Other pulmonary collapse ?Status:?Acute ?Assessment and Plan: ?patient with a history of CVA, dementia, tracheostomy and PEG tube and persistent vegetative state is written in the chart.? Presented to [facility] on 11/14/2022 with shortness of breath, hypoxemia and increased green secretions from his tracheostomy and has a right lower lobe collapse. ? I have no prior imaging to determine if the right lower lobe collapse is an acute, recurrent or chronic problem.? Covid, influenza and RSV RT PCR studies negative. Etiology of the right lower lobe collapse includes pneumonia, mucus plugging, aspiration of foreign body and or cancer. 11/15 Patient is afebrile, patient is currently on high-flow nasal cannula at 30 L and 28% FiO2 with saturations 95%.? I spoke with respiratory therapy and he had minimal secretions with suctioning this morning. ? Chest x-ray with continued right lower lobe collapse. Plan:? agree with treating for pneumonia from living facility with cefepime, vancomycin and azithromycin, all day 2. ? I will send? sputum culture, urine Legionella, urine pneumococcal and serum mycoplasma IgM titers. Albuterol, ipratropium, dornase, Mucomyst, chest PT and vest therapy were added. ? I will increase his guaifenesin liquid to 400 mg p.o. q.4 hours.? I have talked to respiratory therapy and the bedside nursing staff and each service will? alternatively suction the patient every 4 hours? so that he gets suctioned every 2 hours.? I will repeat a chest x-ray in the morning. 11/16 ? Patient is more alert he tracks with his eyes, attempts to mouth words, raised his hands off the bed and attempted to show 2 fingers with both upper extremities.? He wiggled his? right toes.? ? He did have 1 spontaneous cough while I was in the room.? When I suctioned him he had some secretions and did cough with suctioning. Currently is on 20 L and 25 7% FiO2 with saturations 96%. ? Chest x-ray shows expanded right lower lobe with hazy right greater than left infiltrates bilaterally. ? He is afebrile. 11/17 Patient remains alert, following simple commands by showing fingers and wiggling toes, mild in words, white blood cell count 5.7, he is afebrile, creatinine 0.5.? Chest x-ray with continued expansion of the right lower lobe with bibasilar infiltrates with no significant change.? Currently is on 20 L flow 21% FiO2 with saturations 94%. Plan: ? Continue cefepime, vancomycin and azithromycin, all day 4.? I will discontinue mucomyst and continue albuterol, ipratropium, chest PT and vest therapy.? Decrease guaifenesin to 400 TID and suction Q 2 hours.? ? I would treat the patient with azithromycin for 5 days and continue cefepime and vancomycin while he is in the hospital for a total of 10 days and if he is discharged earlier than that would discharge on Levaquin and cefdinir to complete 10 days antibiotic. ?from a pulmonary perspective he is ready to be discharged on these pulmonary medications: ?Levaquin? 750 mg per tube q.day and cefdinir 300 mg per tube b.i.d. to complete a total of 10 days antibiotics. ?albuterol 2.5 mg nebulized and ipratropium 0.5 mg nebulized q.i.d. Vibratory vest therapy and chest PT QID ?tracheal suctioning q.2 hours throughout the day and night ?guaifenesin 400 m
[2022-11-17 12:12] LABS: Influenza A QL RT-PCR Negative (Negative); Influenza B QL RT-PCR Negative (Negative); SARS-CoV-2 RNA PCR Negative (Negative)
[2022-11-17] MEDS: CEFDINIR 300 MG CAPSULE FEED TUBE (12:41)
[2022-11-17] MEDS: levoFLOXacin 750 MG TABLET FEED TUBE (12:41)
--- NOTE | 2022-11-17 15:00 | PC.NURSE ---
Pt transferred back to [facility] via [facility]. Home medication (Clobazam) given to EMS with discharge papers. Vicky at facility was notified of return as well as the medication would be returning as well. Pt stable at discharge on RA and awake at time of transfer.
[2022-11-18 05:04] LABS: Pneumococcal Antigen Urine Not Detected (Not Detected)
[2022-11-19 02:18] LABS: Legionella pneumophila Ag Ur Not Detected (Not Detected)
[2022-11-19 20:07] LABS: Mycoplasma IgM Antibody Titer 474 U/mL (<770)
== END 2022-11-17 14:59 | DRG 143 ==
LOC: ANHED 22:16 → ANHIMU 11-15 00:06
PROVIDERS: Chiropractor; Internal Medicine Pulmonary Disease; Admitting Provider Internal Medicine; Emergency Provider Emergency Medicine; PCP Nurse Practitioner Family; Visit Provider Hospitalist
DX: J98.19 Other pulmonary collapse (principal); F03.90 Unspecified dementia, unspecified severity, without behavioral disturbance, psychotic disturbance, mood disturbance, and anxiety; R40.3 Persistent vegetative state; J96.11 Chronic respiratory failure with hypoxia; Z93.0 Tracheostomy status; J18.9 Pneumonia, unspecified organism; T17.990A Other foreign object in respiratory tract, part unspecified in causing asphyxiation, initial encounter; Z89.612 Acquired absence of left leg above knee; N40.0 Benign prostatic hyperplasia without lower urinary tract symptoms; G40.909 Epilepsy, unspecified, not intractable, without status epilepticus; Z20.822 Contact with and (suspected) exposure to COVID-19; Z86.73 Personal history of transient ischemic attack (TIA), and cerebral infarction without residual deficits; Z93.1 Gastrostomy status
CPT/HCPCS: 36415; 36600; 71045; 71275; 80048; 80053; 80202; 82565; 82805; 83880; 85025; 85055; 86738; 87040; 87070; 87077; 87081; 87147; 87186; 87205; 87449; 87636; 87637; 87899; 93005; 94640; 94669; 96361; 96365; 96367; 96372; 96375; 99285; A9270; J0456; J0692; J1650; J3370; J7030; Q9967

== ENCOUNTER 2022-11-20 16:48 | Emergency (ER) | payer OTHER, SELFPAY ==
--- NOTE | ~2022-11-20 | XR_ITS ---
Portable chest x-ray Comparison: 11/17/2022 Clinical History: Cough Findings: Tracheostomy cannula present. Minimal bilateral pleural effusions are present. There is helton zy and interstitial bibasilar pulmonary disease. Cardiomediastinal silhouette is stable. Bones and s oft tissues are unremarkable. Impression: Small pleural effusions with probable bibasilar pulmonary edema/atelectasis. Correlate clinically for infection. Tracheostomy cannula. Reviewed, dictated and finalized at location . Impression: Small pleural effusions with probable bibasilar pulmonary edema/atelectasis. Co rrelate clinically for infection. Tracheostomy cannula.
[2022-11-20 16:46] VITALS: BP 131/87; PULSE 96; RESP 20; TEMP 36.5; O2SAT 100
[2022-11-20 17:22] LABS: Basophils Percent Auto 0.5 % (0.2-1.2); Eosinophils Absolute Auto 0.6 K/mm3 (0-0.3); Eosinophils Percent Auto 8.8 % (0-4.4); Hematocrit 38.3 % (42.0-52.0); Hemoglobin 12.3 g/dL (14.0-18.0); Immature Granulocyte Absolute 0.04 K/mm3 (0.00-0.031); Immature Granulocyte Percent A 0.6 % (0-0.5); Lymphocytes Absolute Auto 1.94 K/mm3 (0.9-3.2); Lymphocytes Percent Auto 29.5 % (18.3-44.2); Mean Corpuscular HGB Conc 32.1 g/dl (32-36); Mean Corpuscular Hemoglobin 30.8 pg (26-34); Mean Platelet Volume 11.9 fl (7.4-10.4); Monocytes Absolute Auto 0.8 K/mm3 (0.1-0.6); Monocytes Percent Auto 11.6 % (2.6-8.5); Neutrophils Absolute Auto 3.2 K/mm3 (1.3-6.7); Platelet Count Result 215 k/mm3 (150-375); Red Blood Count 3.99 M/mm3 (4.6-6.20); Red Cell Distribution Width 14.9 % (11.5-14.5); White Blood Count 6.6 K/mm3 (4.5-10.0)
--- NOTE | 2022-11-20 17:22 | ED.URI ---
HPI - URI/Sore Throat General Chief Complaint: Upper Respiratory Infection Stated Complaint: UTI Time Seen by Provider: 11/20/22 16:49 History of Present Illness HPI Narrative: This is a 62-year-old male with past history of epilepsy, stroke, recently discharged from this hospital for pneumonia secondary to Pseudomonas, who is [facility] by from his [facility] by EMS for antibiotics. EMS reports staff at [facility] noted antibiotics were ordered he was unable to start them. EMS also reported the patient had increased tracheal secretions that required suctioning with improved aeration. The patient is on 4 L O2 at baseline and was satting at 100%. Vital signs within normal limits in route. Related Data Home Medications Medication Instructions Recorded Confirmed atorvastatin 40 mg tablet 40 mg feeding tube DAILY 11/14/22 11/15/22 clobazam 20 mg tablet 20 mg feeding tube BID 11/14/22 11/15/22 divalproex 125 mg capsule,delayed 500 mg QID 11/14/22 11/15/22 release sprinkle fluticasone propionate 50 1 spray intranasal DAILY 11/14/22 11/15/22 mcg/actuation nasal spray,suspension folic acid 1 mg tablet 1 mg feeding tube DAILY 11/14/22 11/15/22 lacosamide 200 mg tablet 200 mg feeding tube BID 11/14/22 11/15/22 tamsulosin 0.4 mg capsule 0.4 mg PO DAILY 11/14/22 11/15/22 aspirin 81 mg chewable tablet 81 mg feeding tube DAILY 11/15/22 11/15/22 cetirizine 10 mg disintegrating 10 mg feeding tube DAILY 11/15/22 11/15/22 tablet enoxaparin 40 mg/0.4 mL 40 mg subcut DAILY 11/15/22 11/15/22 subcutaneous syringe guaifenesin 200 mg/5 mL oral liquid 100 mg feeding tube Q6H 11/15/22 11/15/22 levetiracetam 1,000 mg tablet 2,000 mg PO BID 11/15/22 11/15/22 midazolam 5 mg/spray (0.1 mL) 1 spray intranasal Q10M PRN 11/15/22 11/15/22 nasal spray (Nayzilam) Seizure Activity thiamine HCl (vitamin B1) 100 mg 100 mg feeding tube DAILY 06/19/23 06/19/23 tablet Allergies Allergy/AdvReac Type Severity Reaction Status Date / Time clonazepam Allergy Unknown Verified 11/14/22 22:11 Review of Systems Review of Systems: Unable to obtain review of systems due to altered mental status [facility] Past Medical History Medical History (Updated 11/20/22 @ 18:45 by Gaurav Dover MD) AMS (altered mental status) History of multiple strokes Tracheostomy in place Vegetative state Social History Social History Smoking status: Never smoker Alcohol intake: never Substance use: never Substance use type: does not use Spiritual care concerns: No Course Course Emergency Course: 17:57 - Chest x-ray demonstrates changes consistent with pneumonia. Chemistries within normal limits. CBC demonstrates white blood cell count of 6.6. Hemoglobin 12.3. Platelet count 215. Nursing staff was able to contact [facility] for clarification. The patient's tobramycin had not yet arrived from pharmacy and the patient's family was concerned he may become septic. I discussed the patient with our pharmacy who will assist in initial dosing of tobramycin. Will monitor for reaction and return the patient to his [facility]. 18:30 - I discussed the patient with his sister (Adriane Hilliard) who voiced understanding and is comfortable with the plan. All questions answered to her satisfaction. Vital Signs Vital signs: Vital Signs Temperature 97.7 F 11/20/22 16:46 Pulse Rate 96 11/20/22 16:46 Respiratory Rate 20 11/20/22 16:46 Blood Pressure 131/87 11/20/22 16:46 Pulse Oximetry 100 11/20/22 16:46 Oxygen Delivery Room Air 11/20/22 16:46 Temperature 98.1 F 11/20/22 19:13 Pulse Rate 89 11/20/22 19:13 Respiratory Rate 17 11/20/22 19:13 Blood Pressure 138/83 11/20/22 19:13 Pulse Oximetry 100 11/20/22 19:13 Oxygen Delivery Room Air 11/20/22 16:46 MDM - URI/Sore Throat MDM Narrative Medical decision making narrative: Plan: Labs, imaging,
[2022-11-20 17:42] LABS: Alanine Aminotransferase 25 U/L (6-50); Albumin Level 3.4 g/dL (3.5-5.1); Alkaline Phosphatase 108 U/L (38-126); Anion Gap 6 mmol/L (8-16); Aspartate Amino Transferase 25 U/L (17-59); Bilirubin,Total 0.2 mg/dL (0.2-1.3); Blood Urea Nitrogen 18 mg/dL (9-20); Calcium 9.5 mg/dL (8.4-10.2); Carbon Dioxide 28 mmol/L (22-30); Chloride 104 mmol/L (98-107); Estimated Glomerular Filt Rate > 60; Glucose 106 mg/dL (65-110); Potassium 4.3 mmol/L (3.4-5.0); Sodium 138 mmol/L (137-145)
[2022-11-20 17:43] LABS: Lactic Acid Reflex 1.5 mmol/L (0.7-2.0)
[2022-11-20] MEDS: SODIUM CHLORIDE 0.9% IV 1,000 ML 999 ML IV CONT (17:43)
[2022-11-20 19:13] VITALS: BP 138/83; PULSE 89; RESP 17; TEMP 36.7; O2SAT 100
--- NOTE | 2022-11-20 19:49 | PC.NURSE ---
Called Mara SIMON at [facility] for report for patient going back to their facility.
[2022-11-20 19:56] VITALS: BP 146/91; PULSE 90; RESP 20; TEMP 37; O2SAT 100
== END 2022-11-20 19:58 ==
PROVIDERS: Emergency Provider Preventive Medicine Aerospace Medicine; PCP Internal Medicine
DX: J18.9 Pneumonia, unspecified organism (principal); G40.909 Epilepsy, unspecified, not intractable, without status epilepticus; Z93.0 Tracheostomy status; R40.3 Persistent vegetative state; Z86.73 Personal history of transient ischemic attack (TIA), and cerebral infarction without residual deficits; Z99.81 Dependence on supplemental oxygen; Z79.82 Long term (current) use of aspirin
CPT/HCPCS: 36415; 71045; 80053; 83605; 85025; 96365; 99284; J7030

== ENCOUNTER 2022-12-17 21:40 | Inpatient (IN) | payer OTHER, SELFPAY ==
[2022-12-17] VITALS (15 sets, daily range): BP systolic 117–131; BP diastolic 75–80; PULSE 115–124; RESP 20–42; TEMP 38; O2SAT 93–99
--- NOTE | ~2022-12-17 | XR_ITS ---
XR chest PICC line 12/19/2022 10:28 Indication: PICC line placement Procedure: AP portable chest Comparison: Comparison to multiple prior studies sequentially, with oldest reviewed study dated 11/16. Findings: There is a tracheostomy tube present. There is improving right lung collapse with persisten t mediastinal shift to the right. There is right pleural effusion. Right subclavian PICC line tip in the SVC. Cardiomegaly. Left lung clear. No acute osseous abnormality. Impression: 1: Persistent right basilar airspace disease which may represent atelectasis or pneumonia. Improved r ight lung collapse with improved mediastinal shift to the right. 2: Right subclavian PICC line tip in the SVC. Reviewed, dictated and finalized at location A. Impression: 1: Persistent right basilar airspace disease which may represent atelectasis or pneumonia. Improved right lung collapse with improved mediastinal shift to the right. 2: Right subclavian PICC line tip in the SVC.
--- NOTE | ~2022-12-17 | XR_ITS ---
XR chest PICC line DATE: 12/25/2022 02:23 INDICATION: PICC line placement TECHNIQUE: Portable upright AP chest on 12/25/2022 at 0217 hours COMPARISON: 12/19/2022 portable AP chest FINDINGS: Right upper extremity PIC catheter tip is situated near the superior cavoatrial junction. Tracheostomy tube appears in satisfactory position. There is improvement of right lower lung atelectasis and/or consolidation since 12/19/2022. There is r esidual bilateral lower lung infiltrate and/atelectasis. Minimal blunting of the costophrenic angles, small pleural effusions cannot be excluded. IMPRESSION: Right upper extremity PIC catheter near superior cavoatrial junction Reviewed, dictated and finalized at Location [facility]. Reviewed, dictated and finalized at location A. IMPRESSION: Right upper extremity PIC catheter near superior cavoatrial junctio n
--- NOTE | ~2022-12-17 | XR_ITS ---
EXAMINATION: XR chest 1V portable DATE: 12/31/2022 13:31 INDICATION: Respiratory failure. TECHNIQUE: A single frontal view of the chest was obtained. COMPARISON: Chest single view 12/25/2022, chest CT 12/18/2022 FINDINGS: There is mild atelectasis at the lung bases. No pleural effusion or pneumothorax. The heart size is normal. There is a tracheostomy tube in expected position. A right upper extremity periphera lly inserted central venous catheter (PICC) is seen with tip in the superior vena cava. IMPRESSION: 1. Mild atelectasis at the lung bases. Reviewed, dictated and finalized at location B.
--- NOTE | ~2022-12-17 | XR_ITS ---
Supine portable views of the abdomen Clinical history: Occluded G-tube Findings: Bowel gas pattern is nonspecific. Percutaneous gastrostomy tube in place, essentially uncha nged as compared to industrial equipment wirer image from CT dated 12/18/2022. No evidence for obstruction or free air. No abnormal mass lesion or calcification is seen. Osseous structures are intact. Impression: Percutaneous gastrostomy tube, without gross interval change since 12/18/2022. Nonspecific bowel gas pattern. Reviewed, dictated and finalized at location M. Impression: Percutaneous gastrostomy tube, without gross interval change since 12/18/2022. Nonspecific bowel gas pattern.
--- NOTE | ~2022-12-17 | CT_ITS ---
EXAMINATION: CTA chest PE protocol DATE: 12/18/2022 07:53 CDT INDICATION: History of right lower lobe collapse TECHNIQUE: Computed tomographic angiography (CTA) of the chest was performed with 100 mL Omnipaque-35 0 intravenous contrast. The dose-length product was 425.92 mGy-cm. Maximum intensity projection 3D-re constructions of the aorta and other arteries were constructed by the technologist on a separate work station. Automated exposure control and iterative reconstruction technique were employed. COMPARISON: CT dated 11/14/2022. FINDINGS: Study is somewhat limited due to motion artifact and contrast bolus timing. No pulmonary em bolism identified. Mediastinal shift to the right. There is extensive consolidation of the right lung , consistent with collapse/atelectasis which has progressed since prior examination. Small right pleu ral effusion. Trace left pleural effusion. Heart size normal. Cannot exclude lymphadenopathy. No evid ence for aortic aneurysm or dissection. IMPRESSION: 1. Worsening consolidation throughout the right lung, consistent with right lung collapse/atelectasis with associated mediastinal shift to the right. 2: Small pleural effusions. 3: No pulmonary embolism given limitations of the study. Reviewed, dictated and finalized at location A. IMPRESSION: 1. Worsening consolidation throughout the right lung, consistent with right viral g collapse/atelectasis with associated mediastinal shift to the right. 2: Small pleural effusions. 3: No pulmonary embolism given limitations of the study.
--- NOTE | ~2022-12-17 | XR_ITS ---
EXAMINATION: XR chest 1V portable Exam Date/Time: 12/17/2022 22:10 CDT HISTORY: Dyspnea Comparison: 11/20/2022. RESULT: Lines, tubes, and devices: Tracheostomy tube in good position. Lungs and pleura: Near-complete opacification of the right hemithorax, with significant right-sided volume loss and left to right mediastinal shift. Cut off sign present in mid and lower bronchi. No pn eumothorax. Cardiomediastinal silhouette: Stable. Other: No acute osseous or upper abdominal finding. IMPRESSION: Considerable right lung atelectasis, possibly secondary to mucous plugging. Reviewed, dictated and finalized at location K.
--- NOTE | 2022-12-17 21:51 | ECG_ITS ---
Measurements Intervals [place] Rate: 119 P: 43 VT: 140 QRS: 9 QRSD: 90 T: 75 QT: 294 QTc: 414 Interpretive Statements SINUS TACHYCARDIA CANNOT RULE OUT SEPTAL INFARCT, AGE INDETERMINATE BORDERLINE ST-T WAVE ABNORMALITY- ANTEROLAT/HIGH LAT LEADS BASELINE ARTIFACT- V3-V6 ABNORMAL ECG COMPARED TO ECG 11/14/2022 18:44:23 ST-T WAVE ABNORMALITY NOW PRESENT Electronically Signed On 12-18-2022 7:12:44 CDT by Dave Hernandez D.O.
[2022-12-17] MEDS: ALBUTEROL SULFATE NEB 2.5 MG/3 ML INH INHALATION (22:15)
[2022-12-17] MEDS: IPRATROPIUM BR 0.02% INH SOLN 0.5 MG/2.5 ML VIAL INHALATION (22:15)
[2022-12-17] MEDS: SODIUM CHLORIDE 0.9% IV 1,000 ML 999 ML IV CONT (22:46)
[2022-12-17 22:50] LABS: Basophils Percent Auto 0.2 % (0.2-1.2); Eosinophils Absolute Auto 0.1 K/mm3 (0-0.3); Eosinophils Percent Auto 0.8 % (0-4.4); Hematocrit 36.3 % (42.0-52.0); Hemoglobin 11.6 g/dL (14.0-18.0); Immature Granulocyte Absolute 0.05 K/mm3 (0.00-0.031); Immature Granulocyte Percent A 0.4 % (0-0.5); Lymphocytes Absolute Auto 2.27 K/mm3 (0.9-3.2); Mean Corpuscular Hemoglobin 29.8 pg (26-34); Mean Corpuscular Volume 93.3 fl (80-100); Mean Platelet Volume 12.8 fl (7.4-10.4); Monocytes Absolute Auto 1.3 K/mm3 (0.1-0.6); Neutrophils Absolute Auto 10.5 K/mm3 (1.3-6.7); Neutrophils Percent Auto 73.6 % (45.5-73.1); Platelet Count Result 166 k/mm3 (150-375); Red Blood Count 3.89 M/mm3 (4.6-6.20); Red Cell Distribution Width 16.5 % (11.5-14.5); White Blood Count 14.2 K/mm3 (4.5-10.0)
[2022-12-17 23:02] LABS: Prothrombin Time 13.6 Seconds (11.1-14.7)
[2022-12-17 23:03] LABS: Partial Thromboplastin Time 36.1 SECONDS (22.3-36.8)
[2022-12-17 23:10] LABS: Appearance Urine Clear (Clear); Bacteria Urine None Seen /hpf; Bilirubin Urine Negative (Negative); Blood Urine Negative (Negative); Color Urine Yellow (Yellow); Glucose Urine UA Negative (Negative); Ketones Urine Negative (Negative); Leukocyte Esterase Ur Trace LEU/UL (Negative); Nitrate Urine Negative (Negative); Non Pathogenic Casts 0-2; Protein Urine Negative (Negative); RBC Urine 0-2 /hpf (0-2); Specific Grav Ur 1.014 (1.001-1.035); Squamous Epithelial Cell Urine None seen /hpf (Few); WBC Urine 0-5 /hpf; pH Urine 7.5 (5.0-9.0)
[2022-12-17 23:12] LABS: Lactic Acid Reflex 2.2 mmol/L (0.7-2.0)
[2022-12-17 23:14] LABS: Alanine Aminotransferase 19 U/L (6-50); Albumin Level 3.8 g/dL (3.5-5.1); Alkaline Phosphatase 114 U/L (38-126); Anion Gap 10 mmol/L (8-16); Aspartate Amino Transferase 24 U/L (17-59); Bilirubin,Total 0.4 mg/dL (0.2-1.3); Blood Urea Nitrogen 16 mg/dL (9-20); Calcium 9.8 mg/dL (8.4-10.2); Carbon Dioxide 27 mmol/L (22-30); Chloride 99 mmol/L (98-107); Estimated CRCL calculation 101 ml/min; Estimated Glomerular Filt Rate > 60; Glucose 115 mg/dL (65-110); Magnesium 1.8 mg/dL (1.6-2.3); Potassium 4.9 mmol/L (3.4-5.0); Sodium 136 mmol/L (137-145)
--- NOTE | 2022-12-17 23:20 | PC.NURSE ---
Report received from ALFRED Thomas. Assumed care of patient at this time.
[2022-12-17 23:23] LABS: NT Pro B Type Natriuretic Pept 403 pg/mL (19.9-100); Troponin I < 0.012 ng/mL (0.000-0.034)
[2022-12-17 23:27] LABS: Add Urine Microscopic? YES
[2022-12-17] MEDS: CEFEPIME 2 GM/NS 50 ML 2 GM/50 ML BAG IVPB (23:35)
[2022-12-17 23:40] LABS: Procalcitonin 0.1 ng/mL
[2022-12-17 23:42] LABS: Influenza A QL RT-PCR Negative (Negative); Influenza B QL RT-PCR Negative (Negative); SARS-CoV-2 RNA PCR Negative (Negative)
--- NOTE | 2022-12-17 23:54 | ED.GENADULT ---
HPI - General Adult General Chief complaint: Shortness of Breath/Dyspnea Stated complaint: low o2 sat Time Seen by Provider: 12/17/22 21:44 History of Present Illness HPI narrative: Patient is a 62-year-old gentleman who presents emerged from chief complaint of shortness of breath and tachycardia. Patient has history of a tracheostomy also has had a left lower extremity amputation patient was found to be febrile tachycardic and tachypneic the patient has prior history of pneumonias and apparently the patient was recently discharged from [facility] and at the care home called EMS and transported to our facility. Patient was requiring supplemental oxygen. Tracheostomy and was febrile upon arrival history is limited due to the patient having prior strokes and not being able to communicate Related Data Home Medications Medication Instructions Recorded Confirmed atorvastatin 40 mg tablet 40 mg feeding tube DAILY 11/14/22 11/15/22 clobazam 20 mg tablet 20 mg feeding tube BID 11/14/22 11/15/22 divalproex 125 mg capsule,delayed 500 mg QID 11/14/22 11/15/22 release sprinkle fluticasone propionate 50 1 spray intranasal DAILY 11/14/22 11/15/22 mcg/actuation nasal spray,suspension folic acid 1 mg tablet 1 mg feeding tube DAILY 11/14/22 11/15/22 lacosamide 200 mg tablet 200 mg feeding tube BID 11/14/22 11/15/22 tamsulosin 0.4 mg capsule 0.4 mg PO DAILY 11/14/22 11/15/22 aspirin 81 mg chewable tablet 81 mg feeding tube DAILY 11/15/22 11/15/22 cetirizine 10 mg disintegrating 10 mg feeding tube DAILY 11/15/22 11/15/22 tablet enoxaparin 40 mg/0.4 mL 40 mg subcut DAILY 11/15/22 11/15/22 subcutaneous syringe guaifenesin 200 mg/5 mL oral liquid 100 mg feeding tube Q6H 11/15/22 11/15/22 levetiracetam 1,000 mg tablet 2,000 mg PO BID 11/15/22 11/15/22 midazolam 5 mg/spray (0.1 mL) 1 spray intranasal Q10M PRN 11/15/22 11/15/22 nasal spray (Nayzilam) Seizure Activity thiamine HCl (vitamin B1) 100 mg 100 mg feeding tube DAILY 11/15/22 11/15/22 tablet Allergies Allergy/AdvReac Type Severity Reaction Status Date / Time clonazepam Allergy Unknown Verified 11/14/22 22:11 Review of Systems Review of Systems: A 10 system review of systems was completed on the patient and is negative except for what is stated in the HPI. Nursing and ancillary documentation was reviewed. [facility] Past Medical History Medical History AMS (altered mental status) History of multiple strokes Tracheostomy in place Vegetative state Social History Social History Smoking status: Never smoker Alcohol intake: never Substance use: never Substance use type: does not use Spiritual care concerns: No Exam Narrative: GENERAL: Still-appearing, thin-nourished, and in mild acute distress. HEAD: Normocephalic, atraumatic. EYES: PERRLA and EOMI. ENT: Nares clear, no rhinorrhea or epistaxis. Mucous membranes moist. NECK: Supple. Tracheostomy in place CHEST: Coarse breath sounds to auscultation. Minimal respiratory distress. HEART: Tachycardic rate and rhythm. No murmur heard. Normal peripheral pulses. ABDOMEN: Soft, nontender, nondistended, normal active bowel sounds. EXTREMITIES: Normal range of motion. No edema. Left lower extremity sensation SKIN: Warm, dry, no rash. NEURO: No focal deficits. Alert and oriented to patient's baseline. PSYCH: Normal mood and affect. Course Vital Signs Vital signs: Vital Signs Temperature 38.0 C H 12/17/22 21:42 Pulse Rate 119 H 12/17/22 21:42 Respiratory Rate 39 H 12/17/22 21:42 Blood Pressure 131/78 12/17/22 21:42 Pulse Oximetry 98 12/17/22 21:42 Oxygen Delivery Non-Rebreather Mask 12/17/22 21:42 Oxygen Flow Rate 15 12/17/22 21:42 Temperature 37.1 C 12/18/22 01:45 Pulse Rate 105 H 12/18/22 01:45 Respiratory Rate 26 H
[2022-12-18] VITALS (54 sets, daily range): BP systolic 96–154; BP diastolic 64–92; PULSE 89–126; RESP 16–33; TEMP 36.2–37.1; O2SAT 94–100; BMI 18.0
[2022-12-18] MEDS: AZITHROMYCIN 500 MG/NS 250 ML 500 MG/250 ML BAG 250 MG IVPB ×2 (00:09→20:46)
[2022-12-18 00:32] LABS: Alveolar/Arterial O2 Gradient 111.3 mmHg; Base Excess ABG -0.5 mEq/l (+/-2.0); Fractional Inspired Oxygen 33 %; HCO3 ABG 23.1 mEq/l (22.0-26.0); Modified Allen's Test Pass; Oxygen Content ABG 16.2 %vol (16.0-22.0); Oxygen Saturation ABG 96.7 % (95.0-100.0); Oxyhemoglobin 94.7 % THb (90.0-100.0); PCO2 ABG 34.6 mmHg (35.0-45.0); PO2 ABG 83.6 mmHg (80.0-100.0); PO2 FiO2 Ratio Arterial Blood 2.53 %; Site Drawn RIGHT RADIAL; Total Hemoglobin 12.1 g/dL (12.0-18.0); pH ABG 7.443 (7.350-7.450)
[2022-12-18 00:33] LABS: Device OTHER DEVICE
--- NOTE | 2022-12-18 01:17 | PC.NURSE ---
Patient taken to CT via stretcher while on tele and portable o2 at this time.
[2022-12-18 01:47] LABS: Reflex Lactic Acid Yes or No Add Lactic
--- NOTE | 2022-12-18 01:50 | PC.NURSE ---
0145 Marcella, patients nurse at [facility] calls to get update.
[2022-12-18 02:20] LABS: Alveolar/Arterial O2 Gradient 117.3 mmHg; Base Excess ABG -1.2 mEq/l (+/-2.0); Fractional Inspired Oxygen 33 %; HCO3 ABG 22.8 mEq/l (22.0-26.0); Oxygen Content ABG 15.7 %vol (16.0-22.0); Oxygen Saturation ABG 95.6 % (95.0-100.0); Oxyhemoglobin 93.4 % THb (90.0-100.0); Total Hemoglobin 11.9 g/dL (12.0-18.0)
[2022-12-18 02:21] LABS: Device OTHER DEVICE; Modified Allen's Test Pass; Site Drawn RIGHT RADIAL
--- NOTE | 2022-12-18 03:06 | PM.IMHP ---
H&P: HPI History of Present Illness Date/Time: 12/18/22 04:30 Chief Complaint: Sent in from [facility] due to hypoxia Narrative: 62-year-old male with a past medical history of multiple CVAs, dysphasia, aphasia, seizures, BPH and respiratory failure requiring tracheostomy who presented to the ER from local [facility] via EMS due to low oxygen saturations. The patient's oxygen saturations were in the 80s. EMS reported the at suction significant amounts of material out of the patient's tracheostomy. A non-rebreather was placed over his tracheostomy the patient's sats improved to 90%. The patient had just been evaluated in the hospital 11/14/2022-11/17/2022 due to pneumonia adequate elective CIS and mucous plugging. Pulmonology was consulted. Patient received vest therapy and antibiotic therapy with aczatam, vancomycin and azithromycin. His antibiotic coverage was narrowed to Levaquin on discharge. He was re-evaluated in the ER on the and was discharged back to the [facility] on tobramycin that have been ordered at the facility but had not yet been received. He was re-evaluated in the ER on the 03 of December after having fallen out of bed. However, the patient does not have much in the way of independent movement. He was evaluated and no acute injury was found he was discharged back to [facility] at that time. On evaluation today the patient's CT scan demonstrates significant increased infiltrates and likely pneumonia with some aspiration and/or mucous plugging. Patient is subsequently being admitted in this setting with acute hypoxic respiratory failure. The entirety of information was obtained from ER report, EMS report hand past medical records. Review of Systems Review of Systems: ROS unobtainable: Yes unobtainable due to medical condition (Aphasia, tracheostomy) [facility] Past Medical History Medical History (Updated 12/18/22 @ 06:18 by Rachel Roach DO) COPD (chronic obstructive pulmonary disease) Dysphagia Esophageal diverticulum Expressive aphasia Gastroparesis History of BPH History of multiple strokes Iron deficiency anemia Seizure disorder Vascular dementia with psychotic disturbance Surgical History Surgical History (Updated 12/18/22 @ 06:14 by Rachel Roach DO) Gastrostomy tube in place History of left above knee amputation Tracheostomy in place Family History Family History Other Unknown family medical history Social History Social History (Updated 12/18/22 @ 06:10 by Rachel Roach DO) Social History: Code status: Full code Surrogate decision maker: Sister Smoking status: Never smoker Alcohol intake: never Substance use: never Substance use type: does not use Spiritual care concerns: No Meds Home Medications and Allergies Home Medications Medication Instructions Recorded Confirmed Type atorvastatin 40 mg tablet 40 mg feeding tube DAILY 11/14/22 12/18/22 History clobazam 20 mg tablet 20 mg feeding tube BID 11/14/22 12/18/22 History divalproex 125 mg capsule,delayed 500 mg QID 11/14/22 12/18/22 History release sprinkle fluticasone propionate 50 1 spray intranasal DAILY 11/14/22 12/18/22 History mcg/actuation nasal spray,suspension folic acid 1 mg tablet 1 mg feeding tube DAILY 11/14/22 12/18/22 History lacosamide 200 mg tablet 200 mg feeding tube BID 11/14/22 12/18/22 History tamsulosin 0.4 mg capsule 0.4 mg PO DAILY 11/14/22 12/18/22 History aspirin 81 mg chewable tablet 81 mg feeding tube DAILY 11/15/22 12/18/22 History enoxaparin 40 mg/0.4 mL 40 mg subcut DAILY 11/15/22 12/18/22 History subcutaneous syringe guaifenesin 200 mg/5 mL oral liquid 100 mg feeding tube Q6H 11/15/22 12/18/22 History levetiracetam 1,000 mg tablet 2,000 mg PO BID 11/15/22 12/18/22 History ipratropium bromide 0.02 % 0.5 mg (2.5 mL) inhalation Q4HRT 11/17/22 12/18/22 Rx solution for inhalation 30 days
--- NOTE | 2022-12-18 03:38 | PC.NURSE ---
Phlebotomy here to draw patient, patient is tough stick. This RN attempted twice, electronic service technician also attempted, unsuccessful.
[2022-12-18 04:17] LABS: Lactic Acid 2.3 mmol/L (0.7-2.0)
[2022-12-18 04:18] LABS: Estimated CRCL calculation 101 ml/min; Estimated Glomerular Filt Rate > 60
[2022-12-18 04:29] LABS: Troponin I < 0.012 ng/mL (0.000-0.034)
[2022-12-18] MEDS: CEFEPIME 2 GM/NS 50 ML 2 GM/50 ML BAG IVPB ×3 (05:53→22:03)
--- NOTE | 2022-12-18 06:01 | PC.NURSE ---
Patients sister, Adriane, calls to get update. She states she will come visit patient later.
--- NOTE | 2022-12-18 06:37 | ADMGEN ---
This patient, Bi Tabor, was admitted to IMU Room 204-01. Patient/family oriented to hospital policies and general routines including ID bracelet, bed and alarms, visiting hours, pain management, procedures, bathroom and other care routines, personal items, smoking policy, room service/diet, and visiting hours. Information on how to activate the Rapid Response Team has been discussed. Patient/Family are encouraged to report perceived risks to care and to ask questions if they do not understand what they are told or what they should do.
[2022-12-18 08:36] LABS: Hematocrit 34.2 % (42.0-52.0); Hemoglobin 10.7 g/dL (14.0-18.0); Immature Platelet Fraction Pct 12.8 % (0.9-11.2); Mean Corpuscular HGB Conc 31.3 g/dl (32-36); Mean Corpuscular Hemoglobin 30.3 pg (26-34); Mean Corpuscular Volume 96.9 fl (80-100); Mean Platelet Volume 13.5 fl (7.4-10.4); Platelet Count Result 145 k/mm3 (150-375); Red Blood Count 3.53 M/mm3 (4.6-6.20); Red Cell Distribution Width 16.9 % (11.5-14.5); White Blood Count 15.5 K/mm3 (4.5-10.0)
[2022-12-18 08:50] LABS: Anion Gap 9 mmol/L (8-16); Blood Urea Nitrogen 13 mg/dL (9-20); Calcium 9.3 mg/dL (8.4-10.2); Carbon Dioxide 25 mmol/L (22-30); Chloride 101 mmol/L (98-107); Estimated CRCL calculation 94 ml/min; Estimated Glomerular Filt Rate > 60; Glucose 140 mg/dL (65-110); Potassium 4.7 mmol/L (3.4-5.0); Sodium 135 mmol/L (137-145)
[2022-12-18] MEDS: SODIUM CHLORIDE 0.9% IV 1,000 ML 125 ML IV CONT ×2 (09:09→16:02)
[2022-12-18] MEDS: LACOSAMIDE (*CRX) 200 MG TABLET FEED TUBE ×2 (09:10→21:59)
[2022-12-18] MEDS: ASPIRIN 81 MG CHEWABLE TABLET FEED TUBE (09:10)
[2022-12-18] MEDS: levETIRAcetam 500 MG TABLET 2000 MG PO ×2 (09:10→21:59)
[2022-12-18] MEDS: ATORVASTATIN 40 MG TABLET FEED TUBE (09:10)
[2022-12-18] MEDS: METOPROLOL TARTRATE 25 MG TABLET FEED TUBE ×2 (09:10→22:00)
[2022-12-18] MEDS: polyethylene glycoL 3350 17 GM POWD.PACK FEED TUBE (09:11)
[2022-12-18] MEDS: ENOXAPARIN 40 MG/0.4 ML SYRINGE SUB-Q (09:11)
[2022-12-18] MEDS: guaiFENesin 200 MG/10 ML UDC PO ×4 (09:11→22:00)
[2022-12-18] MEDS: DIVALPROEX SODIUM SPRINKLE 125 MG CAP.DR 500 MG FEED TUBE ×4 (09:11→21:59)
[2022-12-18] MEDS: FOLIC ACID 1 MG TABLET FEED TUBE (09:12)
[2022-12-18] MEDS: FLUTICASONE PROPIONATE 0.05% NA SPR 16 GM BTL (*BKC) 1 SPRAY NASAL (09:12)
[2022-12-18] MEDS: ACETYLCYSTEINE 20% INHAL SOLN 800 MG/4 ML VIAL 200 MG INHALATION ×3 (09:33→20:30)
[2022-12-18] MEDS: IPRATROPIUM BR 0.02% INH SOLN 0.5 MG/2.5 ML VIAL INHALATION ×3 (09:34→20:30)
[2022-12-18] MEDS: ALBUTEROL SULFATE NEB 2.5 MG/3 ML INH INHALATION ×3 (09:34→20:30)
[2022-12-18] MEDS: DORNASE ALFA INH SOLN 1 MG/ML 2.5 ML AMP 2.5 MG INHALATION ×2 (09:35→20:30)
[2022-12-18] MEDS: VANCOMYCIN 1,250 MG/NS 250 ML 1,250 MG/250 ML BAG 166.67 MG IVPB (13:37)
--- NOTE | 2022-12-18 17:13 | WPDPN ---
Progress Note: A&P Assessment and Plan (1) Sepsis with acute hypoxic respiratory failure: Qualifiers: Sepsis type: sepsis due to unspecified organism Severe sepsis shock status: without septic shock Qualified Code(s): A41.9 - Sepsis, unspecified organism; R65.20 - Severe sepsis without septic shock; J96.01 - Acute respiratory failure with hypoxia Code(s): A41.9 - Sepsis, unspecified organism; R65.20 - Severe sepsis without septic shock; J96.01 - Acute respiratory failure with hypoxia Status: Acute (2) Pneumonia: Qualifiers: Laterality: right Lung location: unspecified part of lung Pneumonia type: due to unspecified organism Qualified Code(s): J18.9 - Pneumonia, unspecified organism Code(s): J18.9 - Pneumonia, unspecified organism Status: Acute (3) Dysphagia: Qualifiers: Dysphagia type: pharyngeal phase Qualified Code(s): R13.13 - Dysphagia, pharyngeal phase Code(s): R13.10 - Dysphagia, unspecified Status: Acute (4) Chronic respiratory failure with hypoxia: Code(s): J96.11 - Chronic respiratory failure with hypoxia Status: Acute Plan The patient has acute on chronic hypoxic respiratory failure due to pneumonia. Patient has almost complete whiteout of his right lung the. X-ray appears significantly worse than her prior evaluation. Will place patient on empiric antibiotic therapy with broad-spectrum antibiotic coverage vancomycin azithromycin and aczactam. Blood cultures are pending. Will send sputum for culture, mycoplasma PCR, urine Legionella antigen and pneumococcal antigen. Will place patient on scheduled guaifenesin, Pulmozyme, Mucomyst nebs, vest therapy and CPT. Patient will require aggressive pulmonary toilet. Patient is currently on 33% FiO2 through trach collar at 20 L. patient may benefit from pulmonology consult if the available this weekend. Given the recurrence of the patient's lung finding and significant worsening patient may need bronchoscopy more aggressive clearing of mucus plugs. There may be a component of aspiration pneumonia to underlying infectious process. Will place patient on aspiration precautions. Patient has chronic dysphagia. Will continue tube feeds. Will continue patient's home seizure meds and anxiety meds. Patient has chronic BPH with chronic indwelling Jensen catheter. Will continue home Flomax. 12/18/2022 interval history: patient family is present in the room and stated he was having problem with his Gtube for sometime and it was replaced at [facility] before discharging him to [facility], suspect most likely patient has aspiration pneumonia and being treated with azithromycin, Cefepime, and vancomycin, will follow up on blood culture, and monitor. Subjective Date/time seen: 12/18/22 17:13 Interval history: Sent in from [facility] due to hypoxia Narrative: 62-year-old male with a past medical history of multiple CVAs, dysphasia, aphasia, seizures, BPH and respiratory failure requiring tracheostomy who presented to the ER from local [facility] via EMS due to low oxygen saturations.? The patient's oxygen saturations were in the 80s.? EMS reported the at suction significant amounts of material out of the patient's tracheostomy.? A non-rebreather was placed over his tracheostomy the patient's sats improved to 90%.? The patient had just been evaluated in the hospital 11/14/2022-11/17/2022 due to pneumonia adequate elective CIS and mucous plugging.? Pulmonology was consulted.? Patient received vest therapy and antibiotic therapy with aczatam, vancomycin and azithromycin.? His antibiotic coverage was narrowed to Levaquin on discharge.? He was re-evaluated in the ER on the and was discharged back to the [facility] on tobramycin that have been ordered at the facility but had not yet been received.? He was re-evaluated in the ER on the 03 of December after having fallen out of bed.? However, the patient does not have much
[2022-12-19] VITALS (30 sets, daily range): BP systolic 108–124; BP diastolic 54–61; PULSE 85–107; RESP 16–30; TEMP 36.3–36.8; O2SAT 95–100
[2022-12-19] MEDS: SODIUM CHLORIDE 0.9% IV 1,000 ML 125 ML IV CONT ×3 (00:04→23:15)
[2022-12-19] MEDS: guaiFENesin 200 MG/10 ML UDC PO ×6 (00:07→20:16)
[2022-12-19] MEDS: VANCOMYCIN 1,250 MG/NS 250 ML 1,250 MG/250 ML BAG 167 MG IVPB ×2 (00:08→23:14)
[2022-12-19] MEDS: IPRATROPIUM BR 0.02% INH SOLN 0.5 MG/2.5 ML VIAL INHALATION ×4 (02:16→20:11)
[2022-12-19] MEDS: ALBUTEROL SULFATE NEB 2.5 MG/3 ML INH INHALATION ×4 (02:17→20:11)
[2022-12-19] MEDS: ACETYLCYSTEINE 20% INHAL SOLN 800 MG/4 ML VIAL 200 MG INHALATION ×4 (02:17→20:12)
[2022-12-19 04:56] LABS: Basophils Percent Auto 0.2 % (0.2-1.2); Eosinophils Percent Auto 0.3 % (0-4.4); Hematocrit 28.4 % (42.0-52.0); Immature Granulocyte Absolute 0.03 K/mm3 (0.00-0.031); Immature Granulocyte Percent A 0.3 % (0-0.5); Lymphocytes Absolute Auto 2.09 K/mm3 (0.9-3.2); Lymphocytes Percent Auto 18.2 % (18.3-44.2); Mean Corpuscular HGB Conc 31.7 g/dl (32-36); Mean Corpuscular Hemoglobin 30.3 pg (26-34); Mean Corpuscular Volume 95.6 fl (80-100); Mean Platelet Volume 12.5 fl (7.4-10.4); Monocytes Absolute Auto 1.4 K/mm3 (0.1-0.6); Monocytes Percent Auto 12.1 % (2.6-8.5); Neutrophils Absolute Auto 7.9 K/mm3 (1.3-6.7); Neutrophils Percent Auto 68.9 % (45.5-73.1); Platelet Count Result 122 k/mm3 (150-375); Red Blood Count 2.97 M/mm3 (4.6-6.20); Red Cell Distribution Width 17.1 % (11.5-14.5); White Blood Count 11.5 K/mm3 (4.5-10.0)
[2022-12-19 05:05] LABS: Anion Gap 8 mmol/L (8-16); Blood Urea Nitrogen 9 mg/dL (9-20); Calcium 8.4 mg/dL (8.4-10.2); Carbon Dioxide 22 mmol/L (22-30); Chloride 110 mmol/L (98-107); Estimated CRCL calculation 110 ml/min; Estimated Glomerular Filt Rate > 60; Glucose 140 mg/dL (65-110); Magnesium 1.9 mg/dL (1.6-2.3); Potassium 4.1 mmol/L (3.4-5.0); Sodium 140 mmol/L (137-145)
[2022-12-19] MEDS: SODIUM CHLOR 3% 15 ML NEB (RESPIRATORY THERAPY) 6 ML INHALATION (05:20)
--- NOTE | 2022-12-19 05:42 | PCRCNOTE ---
No sputum obtained during morning sodium chloride treatment.
--- NOTE | 2022-12-19 05:54 | PC.NURSE ---
Lost IV access at 0500. NS paused in JUL. Attempted to obtain IV access x2 and charge nurse x2 that was unsuccessful. Awaiting call back from physician for PICC vs midline placement.
[2022-12-19] MEDS: DORNASE ALFA INH SOLN 1 MG/ML 2.5 ML AMP 2.5 MG INHALATION ×2 (08:08→20:30)
[2022-12-19] MEDS: FOLIC ACID 1 MG TABLET FEED TUBE (08:31)
[2022-12-19] MEDS: levETIRAcetam 500 MG TABLET 2000 MG PO ×2 (08:31→20:17)
[2022-12-19] MEDS: METOPROLOL TARTRATE 25 MG TABLET FEED TUBE ×2 (08:31→20:16)
[2022-12-19] MEDS: ATORVASTATIN 40 MG TABLET FEED TUBE (08:31)
[2022-12-19] MEDS: LACOSAMIDE (*CRX) 200 MG TABLET FEED TUBE ×2 (08:31→20:16)
[2022-12-19] MEDS: ASPIRIN 81 MG CHEWABLE TABLET FEED TUBE (08:31)
[2022-12-19] MEDS: polyethylene glycoL 3350 17 GM POWD.PACK FEED TUBE (08:32)
[2022-12-19] MEDS: DIVALPROEX SODIUM SPRINKLE 125 MG CAP.DR 500 MG FEED TUBE ×4 (08:32→20:16)
[2022-12-19] MEDS: FLUTICASONE PROPIONATE 0.05% NA SPR 16 GM BTL (*BKC) 1 SPRAY NASAL (08:32)
[2022-12-19] MEDS: ENOXAPARIN 40 MG/0.4 ML SYRINGE SUB-Q (08:32)
[2022-12-19] MEDS: LIDOCAINE HCL 1% PF INJ 5 ML VIAL INFILTRATE (10:00)
[2022-12-19] MEDS: CEFEPIME 2 GM/NS 50 ML 2 GM/50 ML BAG IVPB ×2 (13:18→21:48)
[2022-12-19] MEDS: CENTRAL LINE FLUSH 10 ML IV PUSH ×2 (13:19→20:17)
--- NOTE | 2022-12-19 14:25 | WPDPN ---
Progress Note: A&P Assessment and Plan (1) Sepsis with acute hypoxic respiratory failure: Qualifiers: Sepsis type: sepsis due to unspecified organism Severe sepsis shock status: without septic shock Qualified Code(s): A41.9 - Sepsis, unspecified organism; R65.20 - Severe sepsis without septic shock; J96.01 - Acute respiratory failure with hypoxia Code(s): A41.9 - Sepsis, unspecified organism; R65.20 - Severe sepsis without septic shock; J96.01 - Acute respiratory failure with hypoxia Status: Acute Assessment and Plan: 12/19/2022 interval history: on 12/18/22 patient family was present in the room and stated he was having problem with his Gtube for sometime and [facility] to [place], suspect most likely patient has aspiration pneumonia and being treated with azithromycin, Cefepime, and vancomycin, today patient is feeling better discussed with respiratory therapy green thick secretion from the trach will follow up on blood culture, and monitor. (2) Pneumonia: Qualifiers: Laterality: right Lung location: unspecified part of lung Pneumonia type: due to unspecified organism Qualified Code(s): J18.9 - Pneumonia, unspecified organism Code(s): J18.9 - Pneumonia, unspecified organism Status: Acute (3) Dysphagia: Qualifiers: Dysphagia type: pharyngeal phase Qualified Code(s): R13.13 - Dysphagia, pharyngeal phase Code(s): R13.10 - Dysphagia, unspecified Status: Acute (4) Chronic respiratory failure with hypoxia: Code(s): J96.11 - Chronic respiratory failure with hypoxia Status: Acute Plan The patient has acute on chronic hypoxic respiratory failure due to pneumonia. Patient has almost complete whiteout of his right lung the. X-ray appears significantly worse than her prior evaluation. Will place patient on empiric antibiotic therapy with broad-spectrum antibiotic coverage vancomycin azithromycin and aczactam. Blood cultures are pending. Will send sputum for culture, mycoplasma PCR, urine Legionella antigen and pneumococcal antigen. Will place patient on scheduled guaifenesin, Pulmozyme, Mucomyst nebs, vest therapy and CPT. Patient will require aggressive pulmonary toilet. Patient is currently on 33% FiO2 through trach collar at 20 L. patient may benefit from pulmonology consult if the available this weekend. Given the recurrence of the patient's lung finding and significant worsening patient may need bronchoscopy more aggressive clearing of mucus plugs. There may be a component of aspiration pneumonia to underlying infectious process. Will place patient on aspiration precautions. Patient has chronic dysphagia. Will continue tube feeds. Will continue patient's home seizure meds and anxiety meds. Patient has chronic BPH with chronic indwelling Jensen catheter. Will continue home Flomax. 12/18/2022 interval history: patient family is present in the room and stated he was having problem with his Gtube for sometime and it was replaced at [facility] before discharging him to [place], suspect most likely patient has aspiration pneumonia and being treated with azithromycin, Cefepime, and vancomycin, will follow up on blood culture, and monitor. Subjective Date/time seen: 12/19/22 14:25 Interval history: 12/19/2022 interval history: on 12/18/22 patient family was present in the room and stated he was having problem with his Gtube for sometime and it was replaced at [facility] before discharging him to [place], suspect most likely patient has aspiration pneumonia and being treated with azithromycin, Cefepime, and vancomycin, today patient is feeling better discussed with respiratory therapy green thick secretion from the trach will follow up on blood culture, and monitor. Review of Systems Review of Systems: ROS unobtainable: Yes unobtainable due to medical condition (Aphasia, tracheostomy) Exam Narrative: Patient is comfortable,
[2022-12-19 14:37] LABS: Vancomycin Trough 10.5 ug/mL (10.0-20.0)
[2022-12-19] MEDS: VANCOMYCIN 1,250 MG/NS 250 ML 1,250 MG/250 ML BAG 166.67 MG IVPB (15:22)
[2022-12-19] MEDS: AZITHROMYCIN 500 MG/NS 250 ML 500 MG/250 ML BAG 250 MG IVPB (20:18)
[2022-12-20] VITALS (25 sets, daily range): BP systolic 132–137; BP diastolic 57–73; PULSE 64–93; RESP 16–20; TEMP 36.4–36.9; O2SAT 97–100; BMI 17.9
[2022-12-20] MEDS: guaiFENesin 200 MG/10 ML UDC PO ×6 (00:51→22:26)
[2022-12-20] MEDS: IPRATROPIUM BR 0.02% INH SOLN 0.5 MG/2.5 ML VIAL INHALATION ×4 (01:13→20:59)
[2022-12-20] MEDS: ACETYLCYSTEINE 20% INHAL SOLN 800 MG/4 ML VIAL 200 MG INHALATION ×4 (01:14→20:59)
[2022-12-20] MEDS: ALBUTEROL SULFATE NEB 2.5 MG/3 ML INH INHALATION ×4 (01:14→20:58)
[2022-12-20 04:58] LABS: Hematocrit 28.7 % (42.0-52.0); Mean Corpuscular HGB Conc 31.4 g/dl (32-36); Mean Corpuscular Hemoglobin 30.4 pg (26-34); Platelet Count Result 134 k/mm3 (150-375); Red Blood Count 2.96 M/mm3 (4.6-6.20); White Blood Count 8.1 K/mm3 (4.5-10.0)
[2022-12-20 05:08] LABS: Anion Gap 6 mmol/L (8-16); Blood Urea Nitrogen 8 mg/dL (9-20); Calcium 8.9 mg/dL (8.4-10.2); Carbon Dioxide 24 mmol/L (22-30); Chloride 111 mmol/L (98-107); Estimated CRCL calculation 134 ml/min; Estimated Glomerular Filt Rate > 60; Glucose 118 mg/dL (65-110); Magnesium 1.8 mg/dL (1.6-2.3); Potassium 4.4 mmol/L (3.4-5.0); Sodium 141 mmol/L (137-145)
[2022-12-20] MEDS: CENTRAL LINE FLUSH 10 ML IV PUSH ×3 (05:43→22:28)
[2022-12-20] MEDS: CEFEPIME 2 GM/NS 50 ML 2 GM/50 ML BAG IVPB ×3 (05:43→23:51)
[2022-12-20] MEDS: VANCOMYCIN 1,250 MG/NS 250 ML 1,250 MG/250 ML BAG 167 MG IVPB ×2 (06:17→15:52)
[2022-12-20] MEDS: DORNASE ALFA INH SOLN 1 MG/ML 2.5 ML AMP 2.5 MG INHALATION ×2 (07:52→21:43)
[2022-12-20] MEDS: SODIUM CHLOR 3% 15 ML NEB (RESPIRATORY THERAPY) 6 ML INHALATION (07:54)
[2022-12-20] MEDS: LACOSAMIDE (*CRX) 200 MG TABLET FEED TUBE ×2 (09:05→22:33)
[2022-12-20] MEDS: SODIUM CHLORIDE 0.9% IV 1,000 ML 125 ML IV CONT ×2 (09:05→18:15)
[2022-12-20] MEDS: PHARMACIST COMMUNICATION ORDER 1 EACH XX (09:05)
[2022-12-20] MEDS: levETIRAcetam 500 MG TABLET 2000 MG PO ×2 (09:05→22:28)
[2022-12-20] MEDS: FOLIC ACID 1 MG TABLET FEED TUBE (09:06)
[2022-12-20] MEDS: DIVALPROEX SODIUM SPRINKLE 125 MG CAP.DR 500 MG FEED TUBE ×4 (09:06→22:26)
[2022-12-20] MEDS: METOPROLOL TARTRATE 25 MG TABLET FEED TUBE ×2 (09:06→22:27)
[2022-12-20] MEDS: ASPIRIN 81 MG CHEWABLE TABLET FEED TUBE (09:06)
[2022-12-20] MEDS: ATORVASTATIN 40 MG TABLET FEED TUBE (09:06)
[2022-12-20] MEDS: ENOXAPARIN 40 MG/0.4 ML SYRINGE SUB-Q (09:06)
[2022-12-20] MEDS: FLUTICASONE PROPIONATE 0.05% NA SPR 16 GM BTL (*BKC) 1 SPRAY NASAL (09:07)
[2022-12-20 15:17] LABS: Vancomycin Trough 19.1 ug/mL (10.0-20.0)
--- NOTE | 2022-12-20 16:13 | PC.NURSE ---
This patient, Bi Tabor, was transferred to [[facility] ] on 12/20/22 at 1603. Personal belongings sent with patient. Report given to [ Bharti at 1515]. Family called and notified at 1520. Appropriate documentation sent with patient.
--- NOTE | 2022-12-20 20:19 | PC.NURSE ---
250 ml output suction from trach at shift change
[2022-12-20] MEDS: AZITHROMYCIN 500 MG/NS 250 ML 500 MG/250 ML BAG 250 MG IVPB (22:25)
[2022-12-21] VITALS (17 sets, daily range): BP systolic 148–155; BP diastolic 59–71; PULSE 71–86; RESP 16–20; TEMP 37.1–37.3; O2SAT 92–97
[2022-12-21] MEDS: VANCOMYCIN 1,250 MG/NS 250 ML 1,250 MG/250 ML BAG 167 MG IVPB (00:24)
[2022-12-21] MEDS: guaiFENesin 200 MG/10 ML UDC PO ×6 (00:25→21:27)
[2022-12-21] MEDS: ACETYLCYSTEINE 20% INHAL SOLN 800 MG/4 ML VIAL 200 MG INHALATION ×4 (01:51→20:58)
[2022-12-21] MEDS: IPRATROPIUM BR 0.02% INH SOLN 0.5 MG/2.5 ML VIAL INHALATION ×4 (01:51→20:58)
[2022-12-21] MEDS: ALBUTEROL SULFATE NEB 2.5 MG/3 ML INH INHALATION ×4 (01:51→20:58)
[2022-12-21] MEDS: SODIUM CHLORIDE 0.9% IV 1,000 ML 125 ML IV CONT (02:13)
--- NOTE | 2022-12-21 04:20 | PC.NURSE ---
vancomycin redosed and trough time changed per pharmacist
[2022-12-21] MEDS: CEFEPIME 2 GM/NS 50 ML 2 GM/50 ML BAG IVPB ×3 (05:06→21:27)
[2022-12-21] MEDS: CENTRAL LINE FLUSH 10 ML IV PUSH ×3 (05:06→22:10)
[2022-12-21] MEDS: SODIUM CHLOR 3% 15 ML NEB (RESPIRATORY THERAPY) 6 ML INHALATION (05:39)
--- NOTE | 2022-12-21 05:40 | PCRCNOTE ---
sputum obtained this morning at 0500.
[2022-12-21 06:06] LABS: Hematocrit 28.2 % (42.0-52.0); Hemoglobin 8.9 g/dL (14.0-18.0); Mean Corpuscular HGB Conc 31.6 g/dl (32-36); Mean Corpuscular Hemoglobin 30.5 pg (26-34); Mean Corpuscular Volume 96.6 fl (80-100); Mean Platelet Volume 12.4 fl (7.4-10.4); Platelet Count Result 160 k/mm3 (150-375); Red Blood Count 2.92 M/mm3 (4.6-6.20); Red Cell Distribution Width 16.6 % (11.5-14.5); White Blood Count 8.1 K/mm3 (4.5-10.0)
[2022-12-21 06:14] LABS: Anion Gap 5 mmol/L (8-16); Blood Urea Nitrogen 9 mg/dL (9-20); Calcium 8.8 mg/dL (8.4-10.2); Carbon Dioxide 26 mmol/L (22-30); Chloride 110 mmol/L (98-107); Estimated CRCL calculation 150 ml/min; Estimated Glomerular Filt Rate > 60; Glucose 114 mg/dL (65-110); Magnesium 1.6 mg/dL (1.6-2.3); Potassium 4.4 mmol/L (3.4-5.0); Sodium 141 mmol/L (137-145)
--- NOTE | 2022-12-21 06:43 | PCRCNOTE ---
not enough sputum obtained for sample to be ran. ka
[2022-12-21] MEDS: ENOXAPARIN 40 MG/0.4 ML SYRINGE SUB-Q (08:30)
[2022-12-21] MEDS: FLUTICASONE PROPIONATE 0.05% NA SPR 16 GM BTL (*BKC) 1 SPRAY NASAL (08:33)
[2022-12-21] MEDS: METOPROLOL TARTRATE 25 MG TABLET FEED TUBE ×2 (08:34→21:27)
[2022-12-21] MEDS: DIVALPROEX SODIUM SPRINKLE 125 MG CAP.DR 500 MG FEED TUBE ×4 (08:35→21:28)
[2022-12-21] MEDS: ATORVASTATIN 40 MG TABLET FEED TUBE (08:35)
[2022-12-21] MEDS: ASPIRIN 81 MG CHEWABLE TABLET FEED TUBE (08:35)
[2022-12-21] MEDS: levETIRAcetam 500 MG TABLET 2000 MG PO ×2 (08:37→21:27)
[2022-12-21] MEDS: LACOSAMIDE (*CRX) 200 MG TABLET FEED TUBE ×2 (08:38→21:28)
[2022-12-21] MEDS: DORNASE ALFA INH SOLN 1 MG/ML 2.5 ML AMP 2.5 MG INHALATION ×2 (08:50→20:59)
[2022-12-21] MEDS: FOLIC ACID 1 MG TABLET FEED TUBE (08:57)
[2022-12-21] MEDS: VANCOMYCIN 1,250 MG/NS 250 ML 1,250 MG/250 ML BAG 166.67 MG IVPB (10:02)
--- NOTE | 2022-12-21 11:35 | PCNFU ---
Nutrition Follow-Up Complete: Swallowing difficulties related to dysphagia as evidenced by need for tube feeding for sole source of nutrition Goal: Meet estimated needs Pt current nutrition is: Osmolite 1.5 @ 65ml/hr =2145kcals, 89g protein, 1089ml fluid, 150ml flush q 4 hrs (1988ml total) Nutrition recommendation: continue with current plan of care Last recorded weight is 67.5 kg. Bowel Motility: +BM 12/20 Labs Reviewed: Hgb:8.9, HCT:28.2, Cr:0.4 Meds Noted: lovenox Skin: no skin issues noted Additional Notes: Pt continues on Osmolite 1.5 @ 65ml/hr =2145kcals, 89g protein, 1089ml fluid, 150ml flush q 4 hrs (1988ml total). Tolerating well. Monitor tube feeds, tolerance, wt, labs. Follow up every Tuesday and Tuesday.
--- NOTE | 2022-12-21 12:38 | WPDPN ---
Progress Note: A&P Assessment and Plan (1) Sepsis with acute hypoxic respiratory failure: Qualifiers: Sepsis type: sepsis due to unspecified organism Severe sepsis shock status: without septic shock Qualified Code(s): A41.9 - Sepsis, unspecified organism; R65.20 - Severe sepsis without septic shock; J96.01 - Acute respiratory failure with hypoxia Code(s): A41.9 - Sepsis, unspecified organism; R65.20 - Severe sepsis without septic shock; J96.01 - Acute respiratory failure with hypoxia Status: Acute Assessment and Plan: 12/20/2022 interval history: on 12/18/22 patient family was present in the room and stated he was having problem with his Gtube for sometime and [facility] replaced [facility] [place], suspect most likely patient has aspiration pneumonia and being treated with azithromycin, Cefepime, and vancomycin, today patient is feeling better discussed with respiratory therapy green thick secretion from the trach discuss with [facility] awaiting blood and sputum culture and further recommendation to follow, will follow up on blood and sputum culture, and monitor. (2) Pneumonia: Qualifiers: Laterality: right Lung location: unspecified part of lung Pneumonia type: due to unspecified organism Qualified Code(s): J18.9 - Pneumonia, unspecified organism Code(s): J18.9 - Pneumonia, unspecified organism Status: Acute (3) Dysphagia: Qualifiers: Dysphagia type: pharyngeal phase Qualified Code(s): R13.13 - Dysphagia, pharyngeal phase Code(s): R13.10 - Dysphagia, unspecified Status: Acute (4) Chronic respiratory failure with hypoxia: Code(s): J96.11 - Chronic respiratory failure with hypoxia Status: Acute Plan The patient has acute on chronic hypoxic respiratory failure due to pneumonia. Patient has almost complete whiteout of his right lung the. X-ray appears significantly worse than her prior evaluation. Will place patient on empiric antibiotic therapy with broad-spectrum antibiotic coverage vancomycin azithromycin and aczactam. Blood cultures are pending. Will send sputum for culture, mycoplasma PCR, urine Legionella antigen and pneumococcal antigen. Will place patient on scheduled guaifenesin, Pulmozyme, Mucomyst nebs, vest therapy and CPT. Patient will require aggressive pulmonary toilet. Patient is currently on 33% FiO2 through trach collar at 20 L. patient may benefit from pulmonology consult if the available this weekend. Given the recurrence of the patient's lung finding and significant worsening patient may need bronchoscopy more aggressive clearing of mucus plugs. There may be a component of aspiration pneumonia to underlying infectious process. Will place patient on aspiration precautions. Patient has chronic dysphagia. Will continue tube feeds. Will continue patient's home seizure meds and anxiety meds. Patient has chronic BPH with chronic indwelling Jensen catheter. Will continue home Flomax. 12/18/2022 interval history: patient family is present in the room and stated he was having problem with his Gtube for sometime and it was replaced at [facility] before discharging him [place], suspect most likely patient has aspiration pneumonia and being treated with azithromycin, Cefepime, and vancomycin, will follow up on blood culture, and monitor. Subjective Date/time seen: 12/20/22 12:38 Interval history: 12/20/2022 interval history: on 12/18/22 patient family was present in the room and stated he was having problem with his Gtube for sometime and it was replaced at [facility] before discharging him to [place], suspect most likely patient has aspiration pneumonia and being treated with azithromycin, Cefepime, and vancomycin, today patient is feeling better discussed with respiratory therapy green thick secretion from the trach discuss with [facility] awaiting blood and sputum culture and further recommendation to follow, will follow up on
--- NOTE | 2022-12-21 12:41 | WPDPN ---
Progress Note: A&P Assessment and Plan (1) Sepsis with acute hypoxic respiratory failure: Qualifiers: Sepsis type: sepsis due to unspecified organism Severe sepsis shock status: without septic shock Qualified Code(s): A41.9 - Sepsis, unspecified organism; R65.20 - Severe sepsis without septic shock; J96.01 - Acute respiratory failure with hypoxia Code(s): A41.9 - Sepsis, unspecified organism; R65.20 - Severe sepsis without septic shock; J96.01 - Acute respiratory failure with hypoxia Status: Acute Assessment and Plan: 12/21/2022 interval history: on 12/18/22 patient family was present in the room and stated he was having problem with his Gtube for sometime and [facility] was replaced [facility] to [place], suspect most likely patient has aspiration pneumonia and being treated with azithromycin, Cefepime, and vancomycin, on 12/20 patient was feeling better discussed with respiratory therapy green thick secretion from the trach, today patient is getting chest physiotherapy, sputum culture is growing Pseudomonas aerugionsa, and Acinetobactor baumannii, discuss with [facility], will continue Cefepime and add Ampicillin and stop vancomycin, pending sensitivity awaiting blood culture and further recommendation to follow, monitor. (2) Pneumonia: Qualifiers: Laterality: right Lung location: unspecified part of lung Pneumonia type: due to unspecified organism Qualified Code(s): J18.9 - Pneumonia, unspecified organism Code(s): J18.9 - Pneumonia, unspecified organism Status: Acute (3) Dysphagia: Qualifiers: Dysphagia type: pharyngeal phase Qualified Code(s): R13.13 - Dysphagia, pharyngeal phase Code(s): R13.10 - Dysphagia, unspecified Status: Acute (4) Chronic respiratory failure with hypoxia: Code(s): J96.11 - Chronic respiratory failure with hypoxia Status: Acute Plan The patient has acute on chronic hypoxic respiratory failure due to pneumonia. Patient has almost complete whiteout of his right lung the. X-ray appears significantly worse than her prior evaluation. Will place patient on empiric antibiotic therapy with broad-spectrum antibiotic coverage vancomycin azithromycin and aczactam. Blood cultures are pending. Will send sputum for culture, mycoplasma PCR, urine Legionella antigen and pneumococcal antigen. Will place patient on scheduled guaifenesin, Pulmozyme, Mucomyst nebs, vest therapy and CPT. Patient will require aggressive pulmonary toilet. Patient is currently on 33% FiO2 through trach collar at 20 L. patient may benefit from pulmonology consult if the available this weekend. Given the recurrence of the patient's lung finding and significant worsening patient may need bronchoscopy more aggressive clearing of mucus plugs. There may be a component of aspiration pneumonia to underlying infectious process. Will place patient on aspiration precautions. Patient has chronic dysphagia. Will continue tube feeds. Will continue patient's home seizure meds and anxiety meds. Patient has chronic BPH with chronic indwelling Jensen catheter. Will continue home Flomax. 12/18/2022 interval history: patient family is present in the room and stated he was having problem with his Gtube for sometime and it was replaced at [facility] before discharging him to [place], suspect most likely patient has aspiration pneumonia and being treated with azithromycin, Cefepime, and vancomycin, will follow up on blood culture, and monitor. Subjective Date/time seen: 12/21/22 12:41 Interval history: 12/21/2022 interval history: on 12/18/22 patient family was present in the room and stated he was having problem with his Gtube for sometime and it was replaced at [facility] before discharging him to [place], suspect most likely patient has aspiration pneumonia and being treated with azithromycin, Cefepime, and vancomycin, on 12/20 patient was feeling better discussed with respiratory th
[2022-12-21] MEDS: AMPICILLIN SULB 3 GM/NS 100 ML 3 GM/100 ML VIAL IVPB ×3 (13:15→21:58)
[2022-12-21] MEDS: AZITHROMYCIN 250 MG TABLET 500 MG PO (21:27)
[2022-12-22] VITALS (16 sets, daily range): BP systolic 140–158; BP diastolic 67–74; PULSE 70–85; RESP 14–20; TEMP 36–37.4; O2SAT 92–95
[2022-12-22] MEDS: guaiFENesin 200 MG/10 ML UDC PO ×6 (01:45→20:33)
[2022-12-22] MEDS: AMPICILLIN SULB 3 GM/NS 100 ML 3 GM/100 ML VIAL IVPB ×6 (01:45→20:42)
[2022-12-22] MEDS: ACETYLCYSTEINE 20% INHAL SOLN 800 MG/4 ML VIAL 200 MG INHALATION ×4 (02:30→20:48)
[2022-12-22] MEDS: IPRATROPIUM BR 0.02% INH SOLN 0.5 MG/2.5 ML VIAL INHALATION ×4 (02:30→20:47)
[2022-12-22] MEDS: ALBUTEROL SULFATE NEB 2.5 MG/3 ML INH INHALATION ×4 (02:30→20:47)
[2022-12-22] MEDS: CEFEPIME 2 GM/NS 50 ML 2 GM/50 ML BAG IVPB ×3 (06:10→20:44)
[2022-12-22] MEDS: CENTRAL LINE FLUSH 10 ML IV PUSH ×3 (06:11→20:34)
[2022-12-22 06:44] LABS: Hematocrit 28.8 % (42.0-52.0); Hemoglobin 9.1 g/dL (14.0-18.0); Mean Corpuscular HGB Conc 31.6 g/dl (32-36); Mean Platelet Volume 12.6 fl (7.4-10.4); Platelet Count Result 176 k/mm3 (150-375); Red Blood Count 3.03 M/mm3 (4.6-6.20); Red Cell Distribution Width 16.8 % (11.5-14.5); White Blood Count 7.3 K/mm3 (4.5-10.0)
[2022-12-22 06:54] LABS: Anion Gap 6 mmol/L (8-16); Blood Urea Nitrogen 9 mg/dL (9-20); Calcium 8.6 mg/dL (8.4-10.2); Carbon Dioxide 26 mmol/L (22-30); Chloride 106 mmol/L (98-107); Estimated CRCL calculation 143 ml/min; Estimated Glomerular Filt Rate > 60; Glucose 123 mg/dL (65-110); Magnesium 1.7 mg/dL (1.6-2.3); Sodium 138 mmol/L (137-145)
[2022-12-22] MEDS: DORNASE ALFA INH SOLN 1 MG/ML 2.5 ML AMP 2.5 MG INHALATION ×2 (07:55→20:48)
[2022-12-22] MEDS: FLUTICASONE PROPIONATE 0.05% NA SPR 16 GM BTL (*BKC) 1 SPRAY NASAL (08:26)
[2022-12-22] MEDS: polyethylene glycoL 3350 17 GM POWD.PACK FEED TUBE (08:27)
[2022-12-22] MEDS: ENOXAPARIN 40 MG/0.4 ML SYRINGE SUB-Q (08:29)
[2022-12-22] MEDS: DIVALPROEX SODIUM SPRINKLE 125 MG CAP.DR 500 MG FEED TUBE ×4 (08:30→20:35)
[2022-12-22] MEDS: levETIRAcetam 500 MG TABLET 2000 MG PO ×2 (08:31→20:33)
[2022-12-22] MEDS: FOLIC ACID 1 MG TABLET FEED TUBE (08:31)
[2022-12-22] MEDS: METOPROLOL TARTRATE 25 MG TABLET FEED TUBE ×2 (08:32→20:33)
[2022-12-22] MEDS: ASPIRIN 81 MG CHEWABLE TABLET FEED TUBE (08:32)
[2022-12-22] MEDS: LACOSAMIDE (*CRX) 200 MG TABLET FEED TUBE ×2 (08:33→20:33)
[2022-12-22] MEDS: ATORVASTATIN 40 MG TABLET FEED TUBE (08:38)
[2022-12-22 22:45] LABS: Pneumococcal Antigen Urine Not Detected (Not Detected)
[2022-12-23] VITALS (18 sets, daily range): BP systolic 123–137; BP diastolic 62–66; PULSE 73–95; RESP 12–18; TEMP 36.4–36.9; O2SAT 93–99
[2022-12-23] MEDS: AMPICILLIN SULB 3 GM/NS 100 ML 3 GM/100 ML VIAL IVPB ×6 (00:58→22:01)
[2022-12-23] MEDS: guaiFENesin 200 MG/10 ML UDC PO ×6 (00:58→22:06)
[2022-12-23] MEDS: IPRATROPIUM BR 0.02% INH SOLN 0.5 MG/2.5 ML VIAL INHALATION ×4 (02:55→20:05)
[2022-12-23] MEDS: ALBUTEROL SULFATE NEB 2.5 MG/3 ML INH INHALATION ×4 (02:56→20:04)
[2022-12-23] MEDS: ACETYLCYSTEINE 20% INHAL SOLN 800 MG/4 ML VIAL 200 MG INHALATION ×4 (02:56→20:04)
[2022-12-23] MEDS: CENTRAL LINE FLUSH 10 ML IV PUSH ×2 (04:17→13:58)
[2022-12-23 05:05] LABS: Hematocrit 29.1 % (42.0-52.0); Hemoglobin 9.5 g/dL (14.0-18.0); Mean Corpuscular HGB Conc 32.6 g/dl (32-36); Mean Corpuscular Hemoglobin 30.5 pg (26-34); Mean Corpuscular Volume 93.6 fl (80-100); Mean Platelet Volume 11.8 fl (7.4-10.4); Platelet Count Result 198 k/mm3 (150-375); Red Blood Count 3.11 M/mm3 (4.6-6.20); Red Cell Distribution Width 16.9 % (11.5-14.5); White Blood Count 7.3 K/mm3 (4.5-10.0)
[2022-12-23] MEDS: CEFEPIME 2 GM/NS 50 ML 2 GM/50 ML BAG IVPB ×3 (05:14→22:04)
[2022-12-23 05:15] LABS: Anion Gap 4 mmol/L (8-16); Blood Urea Nitrogen 10 mg/dL (9-20); Calcium 8.9 mg/dL (8.4-10.2); Carbon Dioxide 30 mmol/L (22-30); Chloride 104 mmol/L (98-107); Estimated CRCL calculation 143 ml/min; Estimated Glomerular Filt Rate > 60; Glucose 100 mg/dL (65-110); Magnesium 1.7 mg/dL (1.6-2.3); Potassium 4.4 mmol/L (3.4-5.0); Sodium 138 mmol/L (137-145)
[2022-12-23] MEDS: DORNASE ALFA INH SOLN 1 MG/ML 2.5 ML AMP 2.5 MG INHALATION ×2 (08:29→20:04)
[2022-12-23] MEDS: FLUTICASONE PROPIONATE 0.05% NA SPR 16 GM BTL (*BKC) 1 SPRAY NASAL (08:53)
[2022-12-23] MEDS: ENOXAPARIN 40 MG/0.4 ML SYRINGE SUB-Q (10:00)
[2022-12-23] MEDS: FOLIC ACID 1 MG TABLET FEED TUBE (10:01)
[2022-12-23] MEDS: METOPROLOL TARTRATE 25 MG TABLET FEED TUBE ×2 (10:01→22:08)
[2022-12-23] MEDS: DIVALPROEX SODIUM SPRINKLE 125 MG CAP.DR 500 MG FEED TUBE ×4 (10:02→22:05)
[2022-12-23] MEDS: LACOSAMIDE (*CRX) 200 MG TABLET FEED TUBE ×2 (10:03→22:14)
[2022-12-23] MEDS: levETIRAcetam 500 MG TABLET 2000 MG PO ×2 (10:03→22:06)
[2022-12-23] MEDS: ASPIRIN 81 MG CHEWABLE TABLET FEED TUBE (10:03)
[2022-12-23] MEDS: ATORVASTATIN 40 MG TABLET FEED TUBE (10:04)
--- NOTE | 2022-12-23 14:57 | WPDPN ---
Progress Note: A&P Assessment and Plan (1) Sepsis with acute hypoxic respiratory failure: Qualifiers: Sepsis type: sepsis due to unspecified organism Severe sepsis shock status: without septic shock Qualified Code(s): A41.9 - Sepsis, unspecified organism; R65.20 - Severe sepsis without septic shock; J96.01 - Acute respiratory failure with hypoxia Code(s): A41.9 - Sepsis, unspecified organism; R65.20 - Severe sepsis without septic shock; J96.01 - Acute respiratory failure with hypoxia Status: Acute Assessment and Plan: 12/22/2022 interval history: on 12/18/22 patient family was present in the room and stated he was having problem with his Gtube for sometime and [facility] [place], suspect most likely patient has aspiration pneumonia and being treated with azithromycin, Cefepime, and vancomycin, on 12/20 patient was feeling better discussed with respiratory therapy green thick secretion from the trach, on 12/21 patient was getting chest physiotherapy, sputum culture is growing Pseudomonas aerugionsa, and Acinetobactor baumannii, sensitivity is pending, discussed with [facility], will continue Cefepime and add Ampicillin and stop vancomycin, pending sensitivity awaiting blood culture and further recommendation to follow, monitor. (2) Pneumonia: Qualifiers: Laterality: right Lung location: unspecified part of lung Pneumonia type: due to unspecified organism Qualified Code(s): J18.9 - Pneumonia, unspecified organism Code(s): J18.9 - Pneumonia, unspecified organism Status: Acute (3) Dysphagia: Qualifiers: Dysphagia type: pharyngeal phase Qualified Code(s): R13.13 - Dysphagia, pharyngeal phase Code(s): R13.10 - Dysphagia, unspecified Status: Acute (4) Chronic respiratory failure with hypoxia: Code(s): J96.11 - Chronic respiratory failure with hypoxia Status: Acute Plan The patient has acute on chronic hypoxic respiratory failure due to pneumonia. Patient has almost complete whiteout of his right lung the. X-ray appears significantly worse than her prior evaluation. Will place patient on empiric antibiotic therapy with broad-spectrum antibiotic coverage vancomycin azithromycin and aczactam. Blood cultures are pending. Will send sputum for culture, mycoplasma PCR, urine Legionella antigen and pneumococcal antigen. Will place patient on scheduled guaifenesin, Pulmozyme, Mucomyst nebs, vest therapy and CPT. Patient will require aggressive pulmonary toilet. Patient is currently on 33% FiO2 through trach collar at 20 L. patient may benefit from pulmonology consult if the available this weekend. Given the recurrence of the patient's lung finding and significant worsening patient may need bronchoscopy more aggressive clearing of mucus plugs. There may be a component of aspiration pneumonia to underlying infectious process. Will place patient on aspiration precautions. Patient has chronic dysphagia. Will continue tube feeds. Will continue patient's home seizure meds and anxiety meds. Patient has chronic BPH with chronic indwelling Jensen catheter. Will continue home Flomax. 12/18/2022 interval history: patient family is present in the room and stated he was having problem with his Gtube for sometime and it was replaced at [facility] before discharging [place], suspect most likely patient has aspiration pneumonia and being treated with azithromycin, Cefepime, and vancomycin, will follow up on blood culture, and monitor. Subjective Date/time seen: 12/22/22 14:57 Interval history: 12/22/2022 interval history: on 12/18/22 patient family was present in the room and stated he was having problem with his Gtube for sometime and it was replaced at [facility] before [place], suspect most likely patient has aspiration pneumonia and being treated with azithromycin, Cefepime, and vancomycin, on 12/20 patient was feeling bet
[2022-12-23] MEDS: SULFAMETHOXAZOLE/TRIMETHOPRIM 800/160 MG DS TABLET 2 TAB PO (14:59)
--- NOTE | 2022-12-23 14:59 | WPDPN ---
Progress Note: A&P Assessment and Plan (1) Sepsis with acute hypoxic respiratory failure: Qualifiers: Sepsis type: sepsis due to unspecified organism Severe sepsis shock status: without septic shock Qualified Code(s): A41.9 - Sepsis, unspecified organism; R65.20 - Severe sepsis without septic shock; J96.01 - Acute respiratory failure with hypoxia Code(s): A41.9 - Sepsis, unspecified organism; R65.20 - Severe sepsis without septic shock; J96.01 - Acute respiratory failure with hypoxia Status: Acute Assessment and Plan: 12/23/2022 interval history: on 12/18/22 patient family was present in the room and stated he was having problem with his Gtube for sometime and [facility] to [place], suspect most likely patient has aspiration pneumonia and being treated with azithromycin, Cefepime, and vancomycin, on 12/20 patient was feeling better discussed with respiratory therapy green thick secretion from the trach, on 12/21 patient was getting chest physiotherapy, sputum culture is growing Pseudomonas aerugionsa and sensitive to Cefepime and Acinetobactor baumannii, sensitivity to Bactrim, today discussed with [facility],will continue Cefepime 2 more days and continue Ampicillin and stop vancomycin, Actinetoacter baumannii issensitivity to Bactrim, will start today for 7 days, awaiting blood culture and further recommendation to follow, monitor. plan is possibly discharge patient on TuesdayDecember 25 on oral Bactrim. (2) Pneumonia: Qualifiers: Laterality: right Lung location: unspecified part of lung Pneumonia type: due to unspecified organism Qualified Code(s): J18.9 - Pneumonia, unspecified organism Code(s): J18.9 - Pneumonia, unspecified organism Status: Acute (3) Dysphagia: Qualifiers: Dysphagia type: pharyngeal phase Qualified Code(s): R13.13 - Dysphagia, pharyngeal phase Code(s): R13.10 - Dysphagia, unspecified Status: Acute (4) Chronic respiratory failure with hypoxia: Code(s): J96.11 - Chronic respiratory failure with hypoxia Status: Acute Plan The patient has acute on chronic hypoxic respiratory failure due to pneumonia. Patient has almost complete whiteout of his right lung the. X-ray appears significantly worse than her prior evaluation. Will place patient on empiric antibiotic therapy with broad-spectrum antibiotic coverage vancomycin azithromycin and aczactam. Blood cultures are pending. Will send sputum for culture, mycoplasma PCR, urine Legionella antigen and pneumococcal antigen. Will place patient on scheduled guaifenesin, Pulmozyme, Mucomyst nebs, vest therapy and CPT. Patient will require aggressive pulmonary toilet. Patient is currently on 33% FiO2 through trach collar at 20 L. patient may benefit from pulmonology consult if the available this weekend. Given the recurrence of the patient's lung finding and significant worsening patient may need bronchoscopy more aggressive clearing of mucus plugs. There may be a component of aspiration pneumonia to underlying infectious process. Will place patient on aspiration precautions. Patient has chronic dysphagia. Will continue tube feeds. Will continue patient's home seizure meds and anxiety meds. Patient has chronic BPH with chronic indwelling Jensen catheter. Will continue home Flomax. 12/18/2022 interval history: patient family is present in the room and stated he was having problem with his Gtube for sometime and [facility] was [facility] [place], suspect most likely patient has aspiration pneumonia and being treated with azithromycin, Cefepime, and vancomycin, will follow up on blood culture, and monitor. Subjective Date/time seen: 12/23/22 14:59 Interval history: 12/23/2022 interval history: on 12/18/22 patient family was present in the room and stated he was having problem with his Gtube for sometime and it was replaced at [facility]
[2022-12-24] VITALS (17 sets, daily range): BP systolic 109–127; BP diastolic 51–73; PULSE 76–106; RESP 14–18; TEMP 36.4–37.6; O2SAT 94–99
[2022-12-24] MEDS: ALBUTEROL SULFATE NEB 2.5 MG/3 ML INH INHALATION ×4 (01:17→21:41)
[2022-12-24] MEDS: IPRATROPIUM BR 0.02% INH SOLN 0.5 MG/2.5 ML VIAL INHALATION ×4 (01:17→21:41)
[2022-12-24] MEDS: ACETYLCYSTEINE 20% INHAL SOLN 800 MG/4 ML VIAL 200 MG INHALATION ×4 (01:17→21:41)
[2022-12-24] MEDS: AMPICILLIN SULB 3 GM/NS 100 ML 3 GM/100 ML VIAL IVPB ×6 (02:28→21:13)
[2022-12-24] MEDS: CENTRAL LINE FLUSH 10 ML IV PUSH ×5 (02:47→22:37)
[2022-12-24] MEDS: guaiFENesin 200 MG/10 ML UDC PO ×5 (02:48→21:27)
[2022-12-24 05:19] LABS: Hematocrit 29.2 % (42.0-52.0); Hemoglobin 9.4 g/dL (14.0-18.0); Mean Corpuscular HGB Conc 32.2 g/dl (32-36); Mean Corpuscular Hemoglobin 30.4 pg (26-34); Mean Corpuscular Volume 94.5 fl (80-100); Mean Platelet Volume 12.6 fl (7.4-10.4); Platelet Count Result 154 k/mm3 (150-375); Red Blood Count 3.09 M/mm3 (4.6-6.20); Red Cell Distribution Width 17.1 % (11.5-14.5); White Blood Count 7.6 K/mm3 (4.5-10.0)
[2022-12-24 05:29] LABS: Anion Gap 7 mmol/L (8-16); Blood Urea Nitrogen 9 mg/dL (9-20); Calcium 8.9 mg/dL (8.4-10.2); Carbon Dioxide 26 mmol/L (22-30); Chloride 102 mmol/L (98-107); Estimated CRCL calculation 117 ml/min; Estimated Glomerular Filt Rate > 60; Glucose 107 mg/dL (65-110); Magnesium 1.8 mg/dL (1.6-2.3); Potassium 4.4 mmol/L (3.4-5.0); Sodium 135 mmol/L (137-145)
[2022-12-24] MEDS: CEFEPIME 2 GM/NS 50 ML 2 GM/50 ML BAG IVPB ×3 (06:13→22:46)
[2022-12-24] MEDS: DORNASE ALFA INH SOLN 1 MG/ML 2.5 ML AMP 2.5 MG INHALATION ×2 (08:07→21:42)
[2022-12-24 08:18] LABS: Legionella pneumophila Ag Ur Not Detected (Not Detected)
[2022-12-24] MEDS: ENOXAPARIN 40 MG/0.4 ML SYRINGE SUB-Q (10:24)
[2022-12-24] MEDS: ASPIRIN 81 MG CHEWABLE TABLET FEED TUBE (12:56)
[2022-12-24] MEDS: DIVALPROEX SODIUM SPRINKLE 125 MG CAP.DR 500 MG FEED TUBE (12:57)
[2022-12-24] MEDS: FLUTICASONE PROPIONATE 0.05% NA SPR 16 GM BTL (*BKC) 1 SPRAY NASAL (12:57)
[2022-12-24] MEDS: FOLIC ACID 1 MG TABLET FEED TUBE (12:57)
[2022-12-24] MEDS: ATORVASTATIN 40 MG TABLET FEED TUBE (12:57)
[2022-12-24] MEDS: levETIRAcetam 500 MG TABLET 2000 MG PO ×2 (12:58→22:25)
[2022-12-24] MEDS: polyethylene glycoL 3350 17 GM POWD.PACK FEED TUBE (12:59)
[2022-12-24] MEDS: METOPROLOL TARTRATE 25 MG TABLET FEED TUBE ×2 (12:59→22:26)
[2022-12-24] MEDS: SULFAMETHOXAZOLE/TRIMETHOPRIM 800/160 MG DS TABLET 2 TAB PO ×2 (12:59→16:56)
[2022-12-24] MEDS: LACOSAMIDE (*CRX) 200 MG TABLET FEED TUBE ×2 (13:17→22:25)
--- NOTE | 2022-12-24 13:30 | WPDPN ---
Progress Note: A&P Assessment and Plan (1) Sepsis with acute hypoxic respiratory failure: Qualifiers: Sepsis type: sepsis due to unspecified organism Severe sepsis shock status: without septic shock Qualified Code(s): A41.9 - Sepsis, unspecified organism; R65.20 - Severe sepsis without septic shock; J96.01 - Acute respiratory failure with hypoxia Code(s): A41.9 - Sepsis, unspecified organism; R65.20 - Severe sepsis without septic shock; J96.01 - Acute respiratory failure with hypoxia Status: Acute Assessment and Plan: 12/24/2022 interval history: on 12/18/22 patient family was present in the room and stated he was having problem with his Gtube for sometime and [facility] [place], suspect most likely patient has aspiration pneumonia and being treated with azithromycin, Cefepime, and vancomycin, on 12/20 patient was feeling better discussed with respiratory therapy green thick secretion from the trach, on 12/21 patient was getting chest physiotherapy, sputum culture is growing Pseudomonas aerugionsa and sensitive to Cefepime and Acinetobactor baumannii, sensitivity to Bactrim, on 12/23 discussed with ID pharmacy,will continue Cefepime 2 more days and continue Ampicillin and stop IV abx of TuesdayDecember 25, and stop vancomycin, Actinetoacter baumannii is sensitivity to Bactrim, and started on 12/23 for 7 days, awaiting blood culture and further recommendation to follow, monitor. plan is possibly discharge patient on TuesdayDecember 25 on oral Bactrim. (2) Pneumonia: Qualifiers: Laterality: right Lung location: unspecified part of lung Pneumonia type: due to unspecified organism Qualified Code(s): J18.9 - Pneumonia, unspecified organism Code(s): J18.9 - Pneumonia, unspecified organism Status: Acute (3) Dysphagia: Qualifiers: Dysphagia type: pharyngeal phase Qualified Code(s): R13.13 - Dysphagia, pharyngeal phase Code(s): R13.10 - Dysphagia, unspecified Status: Acute (4) Chronic respiratory failure with hypoxia: Code(s): J96.11 - Chronic respiratory failure with hypoxia Status: Acute Plan The patient has acute on chronic hypoxic respiratory failure due to pneumonia. Patient has almost complete whiteout of his right lung the. X-ray appears significantly worse than her prior evaluation. Will place patient on empiric antibiotic therapy with broad-spectrum antibiotic coverage vancomycin azithromycin and aczactam. Blood cultures are pending. Will send sputum for culture, mycoplasma PCR, urine Legionella antigen and pneumococcal antigen. Will place patient on scheduled guaifenesin, Pulmozyme, Mucomyst nebs, vest therapy and CPT. Patient will require aggressive pulmonary toilet. Patient is currently on 33% FiO2 through trach collar at 20 L. patient may benefit from pulmonology consult if the available this weekend. Given the recurrence of the patient's lung finding and significant worsening patient may need bronchoscopy more aggressive clearing of mucus plugs. There may be a component of aspiration pneumonia to underlying infectious process. Will place patient on aspiration precautions. Patient has chronic dysphagia. Will continue tube feeds. Will continue patient's home seizure meds and anxiety meds. Patient has chronic BPH with chronic indwelling Jensen catheter. Will continue home Flomax. 12/18/2022 interval history: patient family is present in the room and stated he was having problem with his Gtube for sometime and [facility] [place], suspect most likely patient has aspiration pneumonia and being treated with azithromycin, Cefepime, and vancomycin, will follow up on blood culture, and monitor. Subjective Date/time seen: 12/24/22 13:30 Interval history: 12/24/2022 interval history: on 12/18/22 patient family was present in the room and stated he was having problem with his
--- NOTE | 2022-12-24 14:50 | PCNFU ---
Nutrition Follow-Up Complete: Nutrition dx: Swallowing difficulties related to dysphagia as evidenced by need for tube feeding for sole source of nutrition Goal: Meet 100% of estimated nutrition needs and tolerate TF Pt current nutrition is continuous TF of Osmolite 1.5 at 65mL/hr with 150mL FWF every 4 hours. Current TF Rx providing 2145 kcal (96%), 90g protein (113%) and 1090mL H20. TF Rx meeting 100% of estimated kcal/protein needs. Last recorded weight is 63.9 kg. Weight stable x 6 weeks (11/09/22: 63.9 kg). Bowel Motility: Last BM: x1 on 12/23/22. No nausea/vomiting. Diarrhea - on MiraLAX. Labs Reviewed: Na: 135 Meds Noted: MiraLAX, folic acid Skin: No pressure ulcers. Additional Notes: TF well tolerated per review of EHR. Nutrition recommendation: Continue with Osmolite 1.5 at 65mL/hr x 22 hr. Monitor need to change fluid needs/FWF if sodium continues to trend down. Monitor TF, signs/symptoms of intolerance, weight and labs. Follow up every Tuesday and Tuesday.
[2022-12-24] MEDS: VALPROIC ACID LIQ 250 MG/5 ML ORAL SOLUTION UDC 500 MG PO (20:55)
[2022-12-24] MEDS: ACETAMINOPHEN 325 MG TABLET 650 MG FEED TUBE (22:27)
[2022-12-24] MEDS: ALTEPLASE 2 MG VIAL (CATHFLO) IV PUSH (23:54)
[2022-12-25] VITALS (15 sets, daily range): BP systolic 122–133; BP diastolic 59–65; PULSE 73–96; RESP 14–20; TEMP 36.1–37; O2SAT 94–100
[2022-12-25] MEDS: guaiFENesin 200 MG/10 ML UDC PO ×6 (01:09→21:17)
[2022-12-25] MEDS: IPRATROPIUM BR 0.02% INH SOLN 0.5 MG/2.5 ML VIAL INHALATION ×4 (02:15→22:06)
[2022-12-25] MEDS: ALBUTEROL SULFATE NEB 2.5 MG/3 ML INH INHALATION ×4 (02:15→22:06)
[2022-12-25] MEDS: ACETYLCYSTEINE 20% INHAL SOLN 800 MG/4 ML VIAL 200 MG INHALATION ×4 (02:15→22:06)
[2022-12-25] MEDS: VALPROIC ACID LIQ 250 MG/5 ML ORAL SOLUTION UDC 500 MG PO ×4 (02:34→21:05)
[2022-12-25] MEDS: AMPICILLIN SULB 3 GM/NS 100 ML 3 GM/100 ML VIAL IVPB ×5 (03:18→23:44)
[2022-12-25 04:38] LABS: Hematocrit 29.2 % (42.0-52.0); Hemoglobin 9.4 g/dL (14.0-18.0); Mean Corpuscular HGB Conc 32.2 g/dl (32-36); Mean Corpuscular Hemoglobin 30.4 pg (26-34); Mean Corpuscular Volume 94.5 fl (80-100); Mean Platelet Volume 11.8 fl (7.4-10.4); Platelet Count Result 227 k/mm3 (150-375); Red Blood Count 3.09 M/mm3 (4.6-6.20); Red Cell Distribution Width 17.3 % (11.5-14.5); White Blood Count 7.1 K/mm3 (4.5-10.0)
[2022-12-25 04:53] LABS: Anion Gap 4 mmol/L (8-16); Blood Urea Nitrogen 13 mg/dL (9-20); Calcium 8.8 mg/dL (8.4-10.2); Carbon Dioxide 25 mmol/L (22-30); Chloride 102 mmol/L (98-107); Estimated CRCL calculation 86 ml/min; Estimated Glomerular Filt Rate > 60; Glucose 115 mg/dL (65-110); Magnesium 1.9 mg/dL (1.6-2.3); Potassium 4.7 mmol/L (3.4-5.0); Sodium 131 mmol/L (137-145)
[2022-12-25] MEDS: CEFEPIME 2 GM/NS 50 ML 2 GM/50 ML BAG IVPB (05:55)
[2022-12-25] MEDS: CENTRAL LINE FLUSH 10 ML IV PUSH ×5 (05:59→22:21)
[2022-12-25] MEDS: ENOXAPARIN 40 MG/0.4 ML SYRINGE SUB-Q (08:04)
[2022-12-25] MEDS: LACOSAMIDE (*CRX) 200 MG TABLET FEED TUBE ×2 (08:04→21:17)
[2022-12-25] MEDS: levETIRAcetam 500 MG TABLET 2000 MG PO ×2 (08:05→21:18)
[2022-12-25] MEDS: polyethylene glycoL 3350 17 GM POWD.PACK FEED TUBE (08:05)
[2022-12-25] MEDS: ASPIRIN 81 MG CHEWABLE TABLET FEED TUBE (08:05)
[2022-12-25] MEDS: ATORVASTATIN 40 MG TABLET FEED TUBE (08:05)
[2022-12-25] MEDS: METOPROLOL TARTRATE 25 MG TABLET FEED TUBE ×2 (08:05→21:19)
[2022-12-25] MEDS: FLUTICASONE PROPIONATE 0.05% NA SPR 16 GM BTL (*BKC) 1 SPRAY NASAL (08:05)
[2022-12-25] MEDS: SULFAMETHOXAZOLE/TRIMETHOPRIM 800/160 MG DS TABLET 2 TAB PO ×2 (08:05→16:59)
[2022-12-25] MEDS: FOLIC ACID 1 MG TABLET FEED TUBE (08:05)
[2022-12-25] MEDS: DORNASE ALFA INH SOLN 1 MG/ML 2.5 ML AMP 2.5 MG INHALATION (09:35)
[2022-12-25] MEDS: ACETAMINOPHEN 325 MG TABLET 650 MG FEED TUBE (13:08)
--- NOTE | 2022-12-25 14:50 | PM.IMPN ---
Progress Note: A&P Assessment and Plan (1) Sepsis with acute hypoxic respiratory failure: Qualifiers: Sepsis type: sepsis due to unspecified organism Severe sepsis shock status: without septic shock Qualified Code(s): A41.9 - Sepsis, unspecified organism; R65.20 - Severe sepsis without septic shock; J96.01 - Acute respiratory failure with hypoxia Code(s): A41.9 - Sepsis, unspecified organism; R65.20 - Severe sepsis without septic shock; J96.01 - Acute respiratory failure with hypoxia Status: Acute Assessment and Plan: 12/24/2022 interval history: on 12/18/22 patient family was present in the room and stated he was having problem with his Gtube for sometime and [facility] [place], suspect most likely patient has aspiration pneumonia and being treated with azithromycin, Cefepime, and vancomycin, on 12/20 patient was feeling better discussed with respiratory therapy green thick secretion from the trach, on 12/21 patient was getting chest physiotherapy, sputum culture is growing Pseudomonas aerugionsa and sensitive to Cefepime and Acinetobactor baumannii, sensitivity to Bactrim, on 12/23 discussed with ID pharmacy,will continue Cefepime 2 more days and continue Ampicillin and stop IV abx of TuesdayDecember 25, and stop vancomycin, Actinetoacter baumannii is sensitivity to Bactrim, and started on 12/23 for 7 days, awaiting blood culture and further recommendation to follow, monitor. plan is possibly discharge patient on TuesdayDecember 25 on oral Bactrim. 12/25/2022: Patient presented with sepsis 12/18/2022. He was having problem with his G-tube for [facility] suspect most likely patient has aspiration pneumonia being treated with azithromycin cefepime and vancomycin. On 12/20 patient was feeling better however getting 3 green secretions in the trach. On 12/21 patient was getting chest physiotherapy sputum cultures growing Pseudomonas aeruginosa sensitive to cefepime and Acinetobacter baumannii sensitive to Bactrim. On 12/23 antibiotics switched to cefepime for 2 more days and continue ampicillin and stop IV antibiotics as of TuesdayDecember 25 and stop vancomycin. Estimate factor bone many is sensitive to Bactrim and started on 12/23 for 7 days. Mildly hyponatremic today. Labs otherwise stable chronic anemia which is stable. Chest x-ray with right upper extremity PICC catheter near the superior cavoatrial junction. CT on admission with worsening consolidation throughout the right lung consistent with right lung collapse/atelectasis with associated mediastinal shift to the right. Small pleural effusions. No PE. (2) Pneumonia: Qualifiers: Laterality: right Lung location: unspecified part of lung Pneumonia type: due to unspecified organism Qualified Code(s): J18.9 - Pneumonia, unspecified organism Code(s): J18.9 - Pneumonia, unspecified organism Status: Acute (3) Dysphagia: Qualifiers: Dysphagia type: pharyngeal phase Qualified Code(s): R13.13 - Dysphagia, pharyngeal phase Code(s): R13.10 - Dysphagia, unspecified Status: Acute (4) Chronic respiratory failure with hypoxia: Code(s): J96.11 - Chronic respiratory failure with hypoxia Status: Acute Plan The patient has acute on chronic hypoxic respiratory failure due to pneumonia. Patient has almost complete whiteout of his right lung the. X-ray appears significantly worse than her prior evaluation. Will place patient on empiric antibiotic therapy with broad-spectrum antibiotic coverage vancomycin azithromycin and aczactam. Blood cultures are pending. Will send sputum for culture, mycoplasma PCR, urine Legionella antigen and pneumococcal antigen. Will place patient on scheduled guaifenesin, Pulmozyme, Mucomyst nebs, vest therapy and CPT. Patient will require aggressive pulmonary toilet. Patient is currently on 33% FiO2 throu
[2022-12-26] VITALS (13 sets, daily range): BP systolic 113–126; BP diastolic 60–73; PULSE 68–93; RESP 12–24; TEMP 36.1–36.4; O2SAT 93–100
[2022-12-26] MEDS: guaiFENesin 200 MG/10 ML UDC PO ×6 (01:00→22:00)
--- NOTE | 2022-12-26 02:19 | PC.NURSE ---
pts Q4H Ampicillin for @1500 was given @1700. per pharmacy; RN non-admin the dose for @1900.
[2022-12-26] MEDS: IPRATROPIUM BR 0.02% INH SOLN 0.5 MG/2.5 ML VIAL INHALATION ×4 (02:24→19:16)
[2022-12-26] MEDS: ACETYLCYSTEINE 20% INHAL SOLN 800 MG/4 ML VIAL 200 MG INHALATION ×4 (02:24→19:15)
[2022-12-26] MEDS: ALBUTEROL SULFATE NEB 2.5 MG/3 ML INH INHALATION ×4 (02:24→19:16)
[2022-12-26] MEDS: VALPROIC ACID LIQ 250 MG/5 ML ORAL SOLUTION UDC 500 MG PO ×4 (02:37→22:00)
[2022-12-26] MEDS: AMPICILLIN SULB 3 GM/NS 100 ML 3 GM/100 ML VIAL IVPB ×4 (03:44→14:27)
[2022-12-26 04:04] LABS: Hematocrit 29.3 % (42.0-52.0); Hemoglobin 9.4 g/dL (14.0-18.0); Mean Corpuscular HGB Conc 32.1 g/dl (32-36); Mean Corpuscular Hemoglobin 30.3 pg (26-34); Mean Corpuscular Volume 94.5 fl (80-100); Platelet Count Result 228 k/mm3 (150-375); Red Cell Distribution Width 17.2 % (11.5-14.5); White Blood Count 8.6 K/mm3 (4.5-10.0)
[2022-12-26 04:16] LABS: Anion Gap 4 mmol/L (8-16); Blood Urea Nitrogen 14 mg/dL (9-20); Calcium 9.2 mg/dL (8.4-10.2); Carbon Dioxide 24 mmol/L (22-30); Chloride 100 mmol/L (98-107); Estimated CRCL calculation 86 ml/min; Estimated Glomerular Filt Rate > 60; Glucose 131 mg/dL (65-110); Magnesium 1.9 mg/dL (1.6-2.3); Potassium 4.8 mmol/L (3.4-5.0); Sodium 128 mmol/L (137-145)
[2022-12-26] MEDS: CENTRAL LINE FLUSH 10 ML IV PUSH ×4 (05:05→22:00)
[2022-12-26] MEDS: DORNASE ALFA INH SOLN 1 MG/ML 2.5 ML AMP 2.5 MG INHALATION ×2 (08:07→19:16)
[2022-12-26] MEDS: FLUTICASONE PROPIONATE 0.05% NA SPR 16 GM BTL (*BKC) 1 SPRAY NASAL (08:43)
[2022-12-26] MEDS: ACETAMINOPHEN 325 MG TABLET 650 MG FEED TUBE ×3 (08:43→18:13)
[2022-12-26] MEDS: SULFAMETHOXAZOLE/TRIMETHOPRIM 800/160 MG DS TABLET 2 TAB PO ×2 (08:43→16:59)
[2022-12-26] MEDS: levETIRAcetam 500 MG TABLET 2000 MG PO ×2 (08:44→22:00)
[2022-12-26] MEDS: ATORVASTATIN 40 MG TABLET FEED TUBE (08:44)
[2022-12-26] MEDS: LACOSAMIDE (*CRX) 200 MG TABLET FEED TUBE ×2 (08:44→22:00)
[2022-12-26] MEDS: ENOXAPARIN 40 MG/0.4 ML SYRINGE SUB-Q (08:44)
[2022-12-26] MEDS: polyethylene glycoL 3350 17 GM POWD.PACK FEED TUBE (08:44)
[2022-12-26] MEDS: ASPIRIN 81 MG CHEWABLE TABLET FEED TUBE (08:44)
[2022-12-26] MEDS: FOLIC ACID 1 MG TABLET FEED TUBE (08:44)
[2022-12-26] MEDS: METOPROLOL TARTRATE 25 MG TABLET FEED TUBE ×2 (08:59→22:00)
--- NOTE | 2022-12-26 13:59 | PM.IMPN ---
Progress Note: A&P Assessment and Plan (1) Sepsis with acute hypoxic respiratory failure: Qualifiers: Sepsis type: sepsis due to unspecified organism Severe sepsis shock status: without septic shock Qualified Code(s): A41.9 - Sepsis, unspecified organism; R65.20 - Severe sepsis without septic shock; J96.01 - Acute respiratory failure with hypoxia Code(s): A41.9 - Sepsis, unspecified organism; R65.20 - Severe sepsis without septic shock; J96.01 - Acute respiratory failure with hypoxia Status: Acute Assessment and Plan: 12/24/2022 interval history: on 12/18/22 patient family was present in the room and stated he was having problem with his Gtube for sometime and [facility] [place], suspect most likely patient has aspiration pneumonia and being treated with azithromycin, Cefepime, and vancomycin, on 12/20 patient was feeling better discussed with respiratory therapy green thick secretion from the trach, on 12/21 patient was getting chest physiotherapy, sputum culture is growing Pseudomonas aerugionsa and sensitive to Cefepime and Acinetobactor baumannii, sensitivity to Bactrim, on 12/23 discussed with ID pharmacy,will continue Cefepime 2 more days and continue Ampicillin and stop IV abx of TuesdayDecember 25, and stop vancomycin, Actinetoacter baumannii is sensitivity to Bactrim, and started on 12/23 for 7 days, awaiting blood culture and further recommendation to follow, monitor. plan is possibly discharge patient on TuesdayDecember 25 on oral Bactrim. 12/25/2022: Patient presented with sepsis 12/18/2022. He was having problem with his G-tube for [facility] suspect most likely patient has aspiration pneumonia being treated with azithromycin cefepime and vancomycin. On 12/20 patient was feeling better however getting 3 green secretions in the trach. On 12/21 patient was getting chest physiotherapy sputum cultures growing Pseudomonas aeruginosa sensitive to cefepime and Acinetobacter baumannii sensitive to Bactrim. On 12/23 antibiotics switched to cefepime for 2 more days and continue ampicillin and stop IV antibiotics as of TuesdayDecember 25 and stop vancomycin. Acinetobacter baumannii is sensitive to Bactrim and started on 12/23 for 7 days. Mildly hyponatremic today. Labs otherwise stable chronic anemia which is stable. Chest x-ray with right upper extremity PICC catheter near the superior cavoatrial junction. CT on admission with worsening consolidation throughout the right lung consistent with right lung collapse/atelectasis with associated mediastinal shift to the right. Small pleural effusions. No PE. 12/26/2022: Patient presented with sepsis 12/18/2022. He was having problem with his G-tube for sometime was replaced at [facility] suspect most likely patient has aspiration pneumonia being treated with azithromycin cefepime and vancomycin. On 12/20 patient was feeling better however getting green secretions in the trach. On 12/21 patient was getting chest physiotherapy sputum cultures growing Pseudomonas aeruginosa sensitive to cefepime and Acinetobacter baumannii sensitive to Bactrim. On 12/23 antibiotics switched to cefepime for 2 more days and continue ampicillin and stop IV antibiotics as of TuesdayDecember 25 and stop vancomycin. Acinetobacter baumannii is sensitive to Bactrim and started on 12/23 for 7 days. Will stop of Unasyn. mildly hyponatremic. Will adjust water flushes Labs otherwise stable chronic anemia which is stable. Chest x-ray with right upper extremity PICC catheter near the superior cavoatrial junction. CT on admission with worsening consolidation throughout the right lung consistent with right lung collapse/atelectasis with associated mediastinal shift to the right. Small pleural effusions. No PE. (2) Pneumonia: Qualifiers: Laterality: right Lung location: unspecified part
--- NOTE | 2022-12-26 23:34 | PC.NURSE ---
Paper documentation exists on this patient due to be2 System downtime on 12/26/22 from 1930 to 2225 medications given during [place] manually entered for time given[] .
[2022-12-27] VITALS (16 sets, daily range): BP systolic 119–128; BP diastolic 72–90; PULSE 74–87; RESP 14–18; TEMP 36.5–37.2; O2SAT 96–100
[2022-12-27] MEDS: IPRATROPIUM BR 0.02% INH SOLN 0.5 MG/2.5 ML VIAL INHALATION ×4 (01:13→19:37)
[2022-12-27] MEDS: ALBUTEROL SULFATE NEB 2.5 MG/3 ML INH INHALATION ×4 (01:13→19:36)
[2022-12-27] MEDS: ACETYLCYSTEINE 20% INHAL SOLN 800 MG/4 ML VIAL 200 MG INHALATION ×4 (01:14→19:37)
[2022-12-27] MEDS: guaiFENesin 200 MG/10 ML UDC PO ×5 (03:23→21:01)
[2022-12-27] MEDS: VALPROIC ACID LIQ 250 MG/5 ML ORAL SOLUTION UDC 500 MG PO ×3 (03:24→16:38)
[2022-12-27] MEDS: CENTRAL LINE FLUSH 10 ML IV PUSH ×3 (05:42→21:01)
[2022-12-27 05:57] LABS: Hematocrit 30.5 % (42.0-52.0); Hemoglobin 9.9 g/dL (14.0-18.0); Mean Corpuscular HGB Conc 32.5 g/dl (32-36); Mean Corpuscular Hemoglobin 30.7 pg (26-34); Mean Corpuscular Volume 94.4 fl (80-100); Mean Platelet Volume 11.1 fl (7.4-10.4); Platelet Count Result 250 k/mm3 (150-375); Red Blood Count 3.23 M/mm3 (4.6-6.20); Red Cell Distribution Width 17.3 % (11.5-14.5); White Blood Count 7.1 K/mm3 (4.5-10.0)
[2022-12-27 06:08] LABS: Anion Gap 2 mmol/L (8-16); Blood Urea Nitrogen 16 mg/dL (9-20); Calcium 9.5 mg/dL (8.4-10.2); Carbon Dioxide 25 mmol/L (22-30); Chloride 102 mmol/L (98-107); Estimated CRCL calculation 87 ml/min; Estimated Glomerular Filt Rate > 60; Glucose 115 mg/dL (65-110); Magnesium 1.9 mg/dL (1.6-2.3); Potassium 5.7 mmol/L (3.4-5.0); Sodium 129 mmol/L (137-145)
[2022-12-27] MEDS: DORNASE ALFA INH SOLN 1 MG/ML 2.5 ML AMP 2.5 MG INHALATION ×2 (08:32→19:36)
[2022-12-27] MEDS: ATORVASTATIN 40 MG TABLET FEED TUBE (09:33)
[2022-12-27] MEDS: ASPIRIN 81 MG CHEWABLE TABLET FEED TUBE (09:33)
[2022-12-27] MEDS: LACOSAMIDE (*CRX) 200 MG TABLET FEED TUBE ×2 (09:34→21:01)
[2022-12-27] MEDS: levETIRAcetam 500 MG TABLET 2000 MG PO ×2 (09:34→21:00)
[2022-12-27] MEDS: FLUTICASONE PROPIONATE 0.05% NA SPR 16 GM BTL (*BKC) 1 SPRAY NASAL (09:34)
[2022-12-27] MEDS: FOLIC ACID 1 MG TABLET FEED TUBE (09:34)
[2022-12-27] MEDS: ENOXAPARIN 40 MG/0.4 ML SYRINGE SUB-Q (09:34)
[2022-12-27] MEDS: polyethylene glycoL 3350 17 GM POWD.PACK FEED TUBE (09:35)
[2022-12-27] MEDS: METOPROLOL TARTRATE 25 MG TABLET FEED TUBE ×2 (09:35→21:01)
[2022-12-27] MEDS: SULFAMETHOXAZOLE/TRIMETHOPRIM 800/160 MG DS TABLET 2 TAB PO ×2 (09:35→16:38)
[2022-12-27] MEDS: SODIUM ZIRCONIUM CYCLOSILICATE 10 GM POWD.PACK PO (14:50)
--- NOTE | 2022-12-27 16:20 | PM.IMPN ---
Progress Note: A&P Assessment and Plan (1) Sepsis with acute hypoxic respiratory failure: Qualifiers: Sepsis type: sepsis due to unspecified organism Severe sepsis shock status: without septic shock Qualified Code(s): A41.9 - Sepsis, unspecified organism; R65.20 - Severe sepsis without septic shock; J96.01 - Acute respiratory failure with hypoxia Code(s): A41.9 - Sepsis, unspecified organism; R65.20 - Severe sepsis without septic shock; J96.01 - Acute respiratory failure with hypoxia Status: Acute Assessment and Plan: 12/24/2022 interval history: on 12/18/22 patient family was present in the room and stated he was having problem with his Gtube for sometime and [facility] [place], suspect most likely patient has aspiration pneumonia and being treated with azithromycin, Cefepime, and vancomycin, on 12/20 patient was feeling better discussed with respiratory therapy green thick secretion from the trach, on 12/21 patient was getting chest physiotherapy, sputum culture is growing Pseudomonas aerugionsa and sensitive to Cefepime and Acinetobactor baumannii, sensitivity to Bactrim, on 12/23 discussed with ID pharmacy,will continue Cefepime 2 more days and continue Ampicillin and stop IV abx of TuesdayDecember 25, and stop vancomycin, Actinetoacter baumannii is sensitivity to Bactrim, and started on 12/23 for 7 days, awaiting blood culture and further recommendation to follow, monitor. plan is possibly discharge patient on TuesdayDecember 25 on oral Bactrim. 12/25/2022: Patient presented with sepsis 12/18/2022. He was having problem with his G-tube for sometime [facility] suspect most likely patient has aspiration pneumonia being treated with azithromycin cefepime and vancomycin. On 12/20 patient was feeling better however getting 3 green secretions in the trach. On 12/21 patient was getting chest physiotherapy sputum cultures growing Pseudomonas aeruginosa sensitive to cefepime and Acinetobacter baumannii sensitive to Bactrim. On 12/23 antibiotics switched to cefepime for 2 more days and continue ampicillin and stop IV antibiotics as of TuesdayDecember 25 and stop vancomycin. Acinetobacter baumannii is sensitive to Bactrim and started on 12/23 for 7 days. Mildly hyponatremic today. Labs otherwise stable chronic anemia which is stable. Chest x-ray with right upper extremity PICC catheter near the superior cavoatrial junction. CT on admission with worsening consolidation throughout the right lung consistent with right lung collapse/atelectasis with associated mediastinal shift to the right. Small pleural effusions. No PE. 12/26/2022: Patient presented with sepsis 12/18/2022. He was having problem with his G-tube for sometime was replaced at [facility] before discharging to assisted suspect most likely patient has aspiration pneumonia being treated with azithromycin cefepime and vancomycin. On 12/20 patient was feeling better however getting green secretions in the trach. On 12/21 patient was getting chest physiotherapy sputum cultures growing Pseudomonas aeruginosa sensitive to cefepime and Acinetobacter baumannii sensitive to Bactrim. On 12/23 antibiotics switched to cefepime for 2 more days and continue ampicillin and stop IV antibiotics as of TuesdayDecember 25 and stop vancomycin. Acinetobacter baumannii is sensitive to Bactrim and started on 12/23 for 7 days. Will stop of Unasyn. mildly hyponatremic. Will adjust water flushes Labs otherwise stable chronic anemia which is stable. Chest x-ray with right upper extremity PICC catheter near the superior cavoatrial junction. CT on admission with worsening consolidation throughout the right lung consistent with right lung collapse/atelectasis with associated mediastinal shift to the right. Small pleural effusions. No PE. 12/27/2022: Patient presented with sepsis 12/18/2022. He was having problem with his G-tube
[2022-12-28] VITALS (18 sets, daily range): BP systolic 104–156; BP diastolic 62–70; PULSE 76–102; RESP 14–20; TEMP 36.4–37.9; O2SAT 96–99
[2022-12-28] MEDS: guaiFENesin 200 MG/10 ML UDC PO ×6 (00:48→21:26)
[2022-12-28] MEDS: IPRATROPIUM BR 0.02% INH SOLN 0.5 MG/2.5 ML VIAL INHALATION ×4 (01:48→20:28)
[2022-12-28] MEDS: ALBUTEROL SULFATE NEB 2.5 MG/3 ML INH INHALATION ×4 (01:48→20:27)
[2022-12-28] MEDS: ACETYLCYSTEINE 20% INHAL SOLN 800 MG/4 ML VIAL 200 MG INHALATION ×4 (01:49→20:28)
[2022-12-28] MEDS: CENTRAL LINE FLUSH 10 ML IV PUSH ×3 (04:12→22:00)
[2022-12-28 04:15] LABS: Hematocrit 31.7 % (42.0-52.0); Hemoglobin 10.4 g/dL (14.0-18.0); Mean Corpuscular HGB Conc 32.8 g/dl (32-36); Mean Corpuscular Hemoglobin 30.8 pg (26-34); Mean Corpuscular Volume 93.8 fl (80-100); Mean Platelet Volume 11.5 fl (7.4-10.4); Platelet Count Result 276 k/mm3 (150-375); Red Blood Count 3.38 M/mm3 (4.6-6.20); Red Cell Distribution Width 17.3 % (11.5-14.5); White Blood Count 8.6 K/mm3 (4.5-10.0)
[2022-12-28 04:32] LABS: Anion Gap 5 mmol/L (8-16); Blood Urea Nitrogen 19 mg/dL (9-20); Calcium 9.6 mg/dL (8.4-10.2); Carbon Dioxide 26 mmol/L (22-30); Chloride 97 mmol/L (98-107); Estimated CRCL calculation 82 ml/min; Estimated Glomerular Filt Rate > 60; Glucose 116 mg/dL (65-110); Magnesium 1.7 mg/dL (1.6-2.3); Potassium 5.4 mmol/L (3.4-5.0); Sodium 128 mmol/L (137-145)
[2022-12-28] MEDS: DORNASE ALFA INH SOLN 1 MG/ML 2.5 ML AMP 2.5 MG INHALATION ×2 (09:00→20:28)
[2022-12-28] MEDS: ENOXAPARIN 40 MG/0.4 ML SYRINGE SUB-Q (10:52)
[2022-12-28] MEDS: ATORVASTATIN 40 MG TABLET FEED TUBE (10:53)
[2022-12-28] MEDS: FOLIC ACID 1 MG TABLET FEED TUBE (10:57)
[2022-12-28] MEDS: METOPROLOL TARTRATE 25 MG TABLET FEED TUBE ×2 (10:57→21:24)
[2022-12-28] MEDS: SULFAMETHOXAZOLE/TRIMETHOPRIM 800/160 MG DS TABLET 2 TAB PO ×2 (10:58→18:04)
[2022-12-28] MEDS: polyethylene glycoL 3350 17 GM POWD.PACK FEED TUBE (10:58)
[2022-12-28] MEDS: VALPROIC ACID LIQ 250 MG/5 ML ORAL SOLUTION UDC 500 MG PO (10:59)
[2022-12-28] MEDS: LACOSAMIDE (*CRX) 200 MG TABLET FEED TUBE ×2 (10:59→21:24)
[2022-12-28] MEDS: ASPIRIN 81 MG CHEWABLE TABLET FEED TUBE (10:59)
[2022-12-28] MEDS: FLUTICASONE PROPIONATE 0.05% NA SPR 16 GM BTL (*BKC) 1 SPRAY NASAL (11:00)
--- NOTE | 2022-12-28 12:15 | PCNFU ---
Nutrition Follow-Up Complete: Swallowing difficulties related to dysphagia as evidenced by need for tube feeding for sole source of nutrition Goal: meet estimated needs Pt current nutrition is Osmolite 1.5 @ 65ml/hr. Nutrition recommendation: continue with current plan of care Last recorded weight is 62.4 kg - stable. Bowel Motility: +Bm 12/25 Labs Reviewed: Hgb:10.4, HCT:31.7, NA:128, K:5.4, Glu:116 Meds Noted: lovenox Skin: no skin issues noted Additional Notes: Pt continues on a Osmolite 1.5 @ 65ml/hr =2145kcals, 89g protein, 1089ml fluid, 150ml flush q 4 hrs (1989ml total). Tolerating well. Continue with current plan of care. Monitor tube feeds, tolerance, wt, labs. Follow up every Tuesday and Tuesday.
--- NOTE | 2022-12-28 13:05 | PC.NURSE ---
Family present at bedside used call light to notify the RN that they believed the patient was having a seizure. Upon RN arrival to the bedside the patient was twitching in his lips and his left arm. Pts family states that this is what typically happens when the seizures begin and they typically get worse from here . RN notified MD of occurring seizures. MD orders 2mg IVP Ativan. RN informed family of new orders. Family stated that the patient has received ativan in prior situations to stop seizures. MD arrived at bedside. Ativan was administered by RN. RN continued to monitor patient with family at bedside.
[2022-12-28] MEDS: LORazepam INJ (*CRX) 2 MG/ML VIAL IV PUSH (13:24)
[2022-12-28] MEDS: levETIRAcetam 500 MG TABLET 2000 MG PO ×2 (13:24→21:25)
--- NOTE | 2022-12-28 15:11 | WPDNEURCNPN ---
Assessment and Plan Assessment and plan (1) Sepsis with acute hypoxic respiratory failure: Qualifiers: Sepsis type: sepsis due to unspecified organism Severe sepsis shock status: without septic shock Qualified Code(s): A41.9 - Sepsis, unspecified organism; R65.20 - Severe sepsis without septic shock; J96.01 - Acute respiratory failure with hypoxia Code(s): A41.9 - Sepsis, unspecified organism; R65.20 - Severe sepsis without septic shock; J96.01 - Acute respiratory failure with hypoxia Status: Acute (2) Tracheostomy in place: Code(s): Z93.0 - Tracheostomy status Status: Acute (3) History of multiple strokes: Code(s): Z86.73 - Personal history of transient ischemic attack (TIA), and cerebral infarction without residual deficits Status: Acute (4) Intractable seizure disorder: Code(s): G40.919 - Epilepsy, unspecified, intractable, without status epilepticus Status: Acute Plan 1 status post left lower extremity amputation 2. Status post tracheostomy and 3. Respiratory distress 4. Seizure disorder plan increase the divalproex 750 mg q.i.d. Consult date: 12/28/22 HPI: Bi Tabor is a 62 year old male Admitted to the hospital through the emergency room for the complaints of difficulties in breathing with tachycardia in addition to the history of tracheostomy, left lower extremity amputation, history of pneumonias in the past, with recently discharged from [facility] to [facility]. [facility] called the EMS and he was transported to [facility] on supplemental oxygen he was febrile and was unable to communicate because of the previous stroke medications particularly included atorvastatin 40 mg daily clobazam am 20 mg b.i.d. through the tube divalproex 500 mg q.i.d. through the tube folic acid 1 mg daily lacosamide 200 mg via feeding tube b.i.d. aspirin 81 mg levetiracetam 2000 mg p.o. b.i.d. and midazolam 1 spray intranasal p.r.n. for the seizure activity patient is reportedly allergic to clonazepam patient does have history of multiple strokes in the past with tracheostomy in place and in vegetative state by history is never smoker never alcohol intake initial exam revealed him to be thin and somewhat poorly nutrition with coarse breath sounds alert and oriented as baseline normal vital signs with temp of 38.0? pulse ox 98% CBC normal basic metabolic panel now medication as mentioned before included valproic acid 500 mg Q 6 Keppra 2000 mg Q 12 lacosamide 200 mg q.12 and most recent lab remained hyponatremic, patient is being treated for the sepsis with acute hypoxic respiratory failure and obviously seizure disorder. Neuro consult has been obtained for the further adjustment of the anti convulsant Review of Systems Review of Systems: All systems reviewed & are unremarkable except as noted in HPI and below PMFSH Past Medical History Medical History (Updated 12/28/22 @ 15:22 by Rehan Palmer MD) COPD (chronic obstructive pulmonary disease) Dysphagia Esophageal diverticulum Expressive aphasia Gastroparesis History of BPH History of multiple strokes Iron deficiency anemia Seizure disorder Vascular dementia with psychotic disturbance Surgical History Surgical History (Updated 12/18/22 @ 06:14 by Rachel Roach DO) Gastrostomy tube in place History of left above knee amputation Tracheostomy in place Family History Family History Other Unknown family medical history Social History Social History (Updated 12/18/22 @ 06:10 by Rachel Roach DO) Social History: Code status: Full code Surrogate decision maker: Sister Smoking status: Never smoker Alcohol intake: never Substance use: never Substance use type: does not use Spiritual care concerns: No Meds Home Medications and Allergies Home Medications Medication Instructions Recorded Confirmed Type atorvastatin 4
--- NOTE | 2022-12-28 15:46 | WPDPN ---
Progress Note: A&P Assessment and Plan (1) Sepsis with acute hypoxic respiratory failure: Qualifiers: Sepsis type: sepsis due to unspecified organism Severe sepsis shock status: without septic shock Qualified Code(s): A41.9 - Sepsis, unspecified organism; R65.20 - Severe sepsis without septic shock; J96.01 - Acute respiratory failure with hypoxia Code(s): A41.9 - Sepsis, unspecified organism; R65.20 - Severe sepsis without septic shock; J96.01 - Acute respiratory failure with hypoxia Status: Acute Assessment and Plan: 12/24/2022 interval history: on 12/18/22 patient family was present in the room and stated he was having problem with his Gtube for sometime and it was replaced [facility] to [place], suspect most likely patient has aspiration pneumonia and being treated with azithromycin, Cefepime, and vancomycin, on 12/20 patient was feeling better discussed with respiratory therapy green thick secretion from the trach, on 12/21 patient was getting chest physiotherapy, sputum culture is growing Pseudomonas aerugionsa and sensitive to Cefepime and Acinetobactor baumannii, sensitivity to Bactrim, on 12/23 discussed with ID pharmacy,will continue Cefepime 2 more days and continue Ampicillin and stop IV abx of TuesdayDecember 25, and stop vancomycin, Actinetoacter baumannii is sensitivity to Bactrim, and started on 12/23 for 7 days, awaiting blood culture and further recommendation to follow, monitor. plan is possibly discharge patient on TuesdayDecember 25 on oral Bactrim. 12/25/2022: Patient presented with sepsis 12/18/2022. He was having problem with his G-tube for sometime was [facility] before [facility] to [facility] home suspect most likely patient has aspiration pneumonia being treated with azithromycin cefepime and vancomycin. On 12/20 patient was feeling better however getting 3 green secretions in the trach. On 12/21 patient was getting chest physiotherapy sputum cultures growing Pseudomonas aeruginosa sensitive to cefepime and Acinetobacter baumannii sensitive to Bactrim. On 12/23 antibiotics switched to cefepime for 2 more days and continue ampicillin and stop IV antibiotics as of TuesdayDecember 25 and stop vancomycin. Acinetobacter baumannii is sensitive to Bactrim and started on 12/23 for 7 days. Mildly hyponatremic today. Labs otherwise stable chronic anemia which is stable. Chest x-ray with right upper extremity PICC catheter near the superior cavoatrial junction. CT on admission with worsening consolidation throughout the right lung consistent with right lung collapse/atelectasis with associated mediastinal shift to the right. Small pleural effusions. No PE. 12/26/2022: Patient presented with sepsis 12/18/2022. He was having problem with his G-tube for sometime was replaced at [facility] before discharging to group home suspect most likely patient has aspiration pneumonia being treated with azithromycin cefepime and vancomycin. On 12/20 patient was feeling better however getting green secretions in the trach. On 12/21 patient was getting chest physiotherapy sputum cultures growing Pseudomonas aeruginosa sensitive to cefepime and Acinetobacter baumannii sensitive to Bactrim. On 12/23 antibiotics switched to cefepime for 2 more days and continue ampicillin and stop IV antibiotics as of TuesdayDecember 25 and stop vancomycin. Acinetobacter baumannii is sensitive to Bactrim and started on 12/23 for 7 days. Will stop of Unasyn. mildly hyponatremic. Will adjust water flushes Labs otherwise stable chronic anemia which is stable. Chest x-ray with right upper extremity PICC catheter near the superior cavoatrial junction. CT on admission with worsening consolidation throughout the right lung consistent with right lung collapse/atelectasis with associated mediastinal shift to the right. Small pleural effusions. No PE. 12/27/2022: Patient presented with sepsis 12/18/2022. He was having problem with his G-tube
[2022-12-28] MEDS: VALPROIC ACID LIQ 250 MG/5 ML ORAL SOLUTION UDC 750 MG PO ×2 (18:05→21:25)
--- NOTE | 2022-12-28 18:08 | PCRCNOTE ---
Pt unable to do vest due to being on Ativan for seizure today.
[2022-12-28] MEDS: ACETAMINOPHEN 325 MG TABLET 650 MG FEED TUBE (21:43)
[2022-12-29] VITALS (19 sets, daily range): BP systolic 96–134; BP diastolic 66–71; PULSE 64–106; RESP 12–24; TEMP 36.2–37.7; O2SAT 93–100
[2022-12-29] MEDS: IPRATROPIUM BR 0.02% INH SOLN 0.5 MG/2.5 ML VIAL INHALATION ×4 (02:20→20:45)
[2022-12-29] MEDS: ALBUTEROL SULFATE NEB 2.5 MG/3 ML INH INHALATION ×4 (02:21→20:45)
[2022-12-29] MEDS: ACETYLCYSTEINE 20% INHAL SOLN 800 MG/4 ML VIAL 200 MG INHALATION ×4 (02:21→20:46)
[2022-12-29] MEDS: ACETAMINOPHEN 325 MG TABLET 650 MG FEED TUBE (02:30)
[2022-12-29] MEDS: guaiFENesin 200 MG/10 ML UDC PO ×6 (02:30→20:54)
[2022-12-29 05:37] LABS: Hematocrit 32.1 % (42.0-52.0); Hemoglobin 10.5 g/dL (14.0-18.0); Mean Corpuscular HGB Conc 32.7 g/dl (32-36); Mean Corpuscular Hemoglobin 30.9 pg (26-34); Mean Corpuscular Volume 94.4 fl (80-100); Mean Platelet Volume 11.7 fl (7.4-10.4); Platelet Count Result 259 k/mm3 (150-375); Red Cell Distribution Width 17.2 % (11.5-14.5); White Blood Count 8.4 K/mm3 (4.5-10.0)
[2022-12-29 05:46] LABS: Anion Gap 9 mmol/L (8-16); Blood Urea Nitrogen 24 mg/dL (9-20); Calcium 9.4 mg/dL (8.4-10.2); Carbon Dioxide 24 mmol/L (22-30); Chloride 96 mmol/L (98-107); Estimated CRCL calculation 67 ml/min; Estimated Glomerular Filt Rate > 60; Glucose 105 mg/dL (65-110); Magnesium 1.8 mg/dL (1.6-2.3); Potassium 5.4 mmol/L (3.4-5.0); Sodium 129 mmol/L (137-145)
[2022-12-29] MEDS: ATORVASTATIN 40 MG TABLET FEED TUBE (10:06)
[2022-12-29] MEDS: ASPIRIN 81 MG CHEWABLE TABLET FEED TUBE (10:06)
[2022-12-29] MEDS: ENOXAPARIN 40 MG/0.4 ML SYRINGE SUB-Q (10:07)
[2022-12-29] MEDS: FLUTICASONE PROPIONATE 0.05% NA SPR 16 GM BTL (*BKC) 1 SPRAY NASAL (10:07)
[2022-12-29] MEDS: FOLIC ACID 1 MG TABLET FEED TUBE (10:07)
[2022-12-29] MEDS: levETIRAcetam 500 MG TABLET 2000 MG PO ×2 (10:09→20:55)
[2022-12-29] MEDS: METOPROLOL TARTRATE 25 MG TABLET FEED TUBE ×2 (10:09→20:55)
[2022-12-29] MEDS: polyethylene glycoL 3350 17 GM POWD.PACK FEED TUBE (10:10)
[2022-12-29] MEDS: VALPROIC ACID LIQ 250 MG/5 ML ORAL SOLUTION UDC 750 MG PO ×4 (10:11→20:54)
[2022-12-29] MEDS: SULFAMETHOXAZOLE/TRIMETHOPRIM 800/160 MG DS TABLET 2 TAB PO ×2 (10:11→17:48)
[2022-12-29] MEDS: DORNASE ALFA INH SOLN 1 MG/ML 2.5 ML AMP 2.5 MG INHALATION ×2 (10:12→20:45)
[2022-12-29] MEDS: LACOSAMIDE (*CRX) 200 MG TABLET FEED TUBE ×2 (10:14→21:28)
[2022-12-29 12:11] LABS: Valproic Acid 90.8 ug/mL (50-120)
[2022-12-29] MEDS: CENTRAL LINE FLUSH 10 ML IV PUSH ×2 (13:00→23:52)
--- NOTE | 2022-12-29 14:44 | WPDPN ---
Progress Note: A&P Assessment and Plan (1) Sepsis with acute hypoxic respiratory failure: Qualifiers: Sepsis type: sepsis due to unspecified organism Severe sepsis shock status: without septic shock Qualified Code(s): A41.9 - Sepsis, unspecified organism; R65.20 - Severe sepsis without septic shock; J96.01 - Acute respiratory failure with hypoxia Code(s): A41.9 - Sepsis, unspecified organism; R65.20 - Severe sepsis without septic shock; J96.01 - Acute respiratory failure with hypoxia Status: Acute Assessment and Plan: 12/24/2022 interval history: on 12/18/22 patient family was present in the room and stated he was having problem with his Gtube for sometime and it was replaced [facility] to [place], suspect most likely patient has aspiration pneumonia and being treated with azithromycin, Cefepime, and vancomycin, on 12/20 patient was feeling better discussed with respiratory therapy green thick secretion from the trach, on 12/21 patient was getting chest physiotherapy, sputum culture is growing Pseudomonas aerugionsa and sensitive to Cefepime and Acinetobactor baumannii, sensitivity to Bactrim, on 12/23 discussed with ID pharmacy,will continue Cefepime 2 more days and continue Ampicillin and stop IV abx of TuesdayDecember 25, and stop vancomycin, Actinetoacter baumannii is sensitivity to Bactrim, and started on 12/23 for 7 days, awaiting blood culture and further recommendation to follow, monitor. plan is possibly discharge patient on TuesdayDecember 25 on oral Bactrim. 12/25/2022: Patient presented with sepsis 12/18/2022. He was having problem with his G-tube for sometime was [facility] suspect most likely patient has aspiration pneumonia being treated with azithromycin cefepime and vancomycin. On 12/20 patient was feeling better however getting 3 green secretions in the trach. On 12/21 patient was getting chest physiotherapy sputum cultures growing Pseudomonas aeruginosa sensitive to cefepime and Acinetobacter baumannii sensitive to Bactrim. On 12/23 antibiotics switched to cefepime for 2 more days and continue ampicillin and stop IV antibiotics as of TuesdayDecember 25 and stop vancomycin. Acinetobacter baumannii is sensitive to Bactrim and started on 12/23 for 7 days. Mildly hyponatremic today. Labs otherwise stable chronic anemia which is stable. Chest x-ray with right upper extremity PICC catheter near the superior cavoatrial junction. CT on admission with worsening consolidation throughout the right lung consistent with right lung collapse/atelectasis with associated mediastinal shift to the right. Small pleural effusions. No PE. 12/26/2022: Patient presented with sepsis 12/18/2022. He was having problem with his G-tube for sometime was replaced at [facility] before discharging to [facility] suspect most likely patient has aspiration pneumonia being treated with azithromycin cefepime and vancomycin. On 12/20 patient was feeling better however getting green secretions in the trach. On 12/21 patient was getting chest physiotherapy sputum cultures growing Pseudomonas aeruginosa sensitive to cefepime and Acinetobacter baumannii sensitive to Bactrim. On 12/23 antibiotics switched to cefepime for 2 more days and continue ampicillin and stop IV antibiotics as of TuesdayDecember 25 and stop vancomycin. Acinetobacter baumannii is sensitive to Bactrim and started on 12/23 for 7 days. Will stop of Unasyn. mildly hyponatremic. Will adjust water flushes Labs otherwise stable chronic anemia which is stable. Chest x-ray with right upper extremity PICC catheter near the superior cavoatrial junction. CT on admission with worsening consolidation throughout the right lung consistent with right lung collapse/atelectasis with associated mediastinal shift to the right. Small pleural effusions. No PE. 12/27/2022: Patient presented with sepsis 12/18/2022. He was having problem with his G-tube
[2022-12-30] VITALS (16 sets, daily range): BP systolic 126–148; BP diastolic 65–74; PULSE 84–122; RESP 14–20; TEMP 36.2–36.9; O2SAT 96–100
[2022-12-30] MEDS: guaiFENesin 200 MG/10 ML UDC PO ×6 (01:21→22:08)
[2022-12-30] MEDS: ACETYLCYSTEINE 20% INHAL SOLN 800 MG/4 ML VIAL 200 MG INHALATION ×4 (02:40→20:47)
[2022-12-30] MEDS: IPRATROPIUM BR 0.02% INH SOLN 0.5 MG/2.5 ML VIAL INHALATION ×4 (02:40→20:47)
[2022-12-30] MEDS: ALBUTEROL SULFATE NEB 2.5 MG/3 ML INH INHALATION ×4 (02:40→20:47)
[2022-12-30] MEDS: CENTRAL LINE FLUSH 10 ML IV PUSH ×3 (05:17→22:13)
[2022-12-30 05:27] LABS: Hematocrit 32.6 % (42.0-52.0); Hemoglobin 10.5 g/dL (14.0-18.0); Mean Corpuscular HGB Conc 32.2 g/dl (32-36); Mean Corpuscular Hemoglobin 30.3 pg (26-34); Mean Corpuscular Volume 93.9 fl (80-100); Mean Platelet Volume 11.1 fl (7.4-10.4); Platelet Count Result 264 k/mm3 (150-375); Red Blood Count 3.47 M/mm3 (4.6-6.20); Red Cell Distribution Width 17.4 % (11.5-14.5); White Blood Count 7.9 K/mm3 (4.5-10.0)
[2022-12-30 05:39] LABS: Anion Gap 6 mmol/L (8-16); Blood Urea Nitrogen 20 mg/dL (9-20); Calcium 9.2 mg/dL (8.4-10.2); Carbon Dioxide 26 mmol/L (22-30); Chloride 98 mmol/L (98-107); Estimated CRCL calculation 72 ml/min; Estimated Glomerular Filt Rate > 60; Glucose 115 mg/dL (65-110); Magnesium 1.7 mg/dL (1.6-2.3); Potassium 4.9 mmol/L (3.4-5.0); Sodium 130 mmol/L (137-145)
[2022-12-30] MEDS: DORNASE ALFA INH SOLN 1 MG/ML 2.5 ML AMP 2.5 MG INHALATION ×2 (08:47→20:47)
[2022-12-30] MEDS: ASPIRIN 81 MG CHEWABLE TABLET FEED TUBE (09:10)
[2022-12-30] MEDS: levETIRAcetam 500 MG TABLET 2000 MG PO ×2 (09:12→22:08)
[2022-12-30] MEDS: FOLIC ACID 1 MG TABLET FEED TUBE (09:12)
[2022-12-30] MEDS: ENOXAPARIN 40 MG/0.4 ML SYRINGE SUB-Q (09:12)
[2022-12-30] MEDS: SULFAMETHOXAZOLE/TRIMETHOPRIM 800/160 MG DS TABLET 2 TAB PO (09:14)
[2022-12-30] MEDS: ATORVASTATIN 40 MG TABLET FEED TUBE (09:14)
[2022-12-30] MEDS: polyethylene glycoL 3350 17 GM POWD.PACK FEED TUBE (09:15)
[2022-12-30] MEDS: METOPROLOL TARTRATE 25 MG TABLET FEED TUBE ×2 (09:15→22:09)
[2022-12-30] MEDS: VALPROIC ACID LIQ 250 MG/5 ML ORAL SOLUTION UDC 750 MG PO ×4 (09:15→22:10)
[2022-12-30] MEDS: FLUTICASONE PROPIONATE 0.05% NA SPR 16 GM BTL (*BKC) 1 SPRAY NASAL (09:16)
[2022-12-30] MEDS: LACOSAMIDE (*CRX) 200 MG TABLET FEED TUBE ×2 (09:16→23:35)
--- NOTE | 2022-12-30 14:05 | WPDPN ---
Progress Note: A&P Assessment and Plan (1) Sepsis with acute hypoxic respiratory failure: Qualifiers: Sepsis type: sepsis due to unspecified organism Severe sepsis shock status: without septic shock Qualified Code(s): A41.9 - Sepsis, unspecified organism; R65.20 - Severe sepsis without septic shock; J96.01 - Acute respiratory failure with hypoxia Code(s): A41.9 - Sepsis, unspecified organism; R65.20 - Severe sepsis without septic shock; J96.01 - Acute respiratory failure with hypoxia Status: Acute Assessment and Plan: 12/24/2022 interval history: on 12/18/22 patient family was present in the room and stated he was having problem with his Gtube for sometime and [facility] was replaced [facility] to [place], suspect most likely patient has aspiration pneumonia and being treated with azithromycin, Cefepime, and vancomycin, on 12/20 patient was feeling better discussed with respiratory therapy green thick secretion from the trach, on 12/21 patient was getting chest physiotherapy, sputum culture is growing Pseudomonas aerugionsa and sensitive to Cefepime and Acinetobactor baumannii, sensitivity to Bactrim, on 12/23 discussed with ID pharmacy,will continue Cefepime 2 more days and continue Ampicillin and stop IV abx of TuesdayDecember 25, and stop vancomycin, Actinetoacter baumannii is sensitivity to Bactrim, and started on 12/23 for 7 days, awaiting blood culture and further recommendation to follow, monitor. plan is possibly discharge patient on TuesdayDecember 25 on oral Bactrim. 12/25/2022: Patient presented with sepsis 12/18/2022. He was having problem with his G-tube for sometime [facility] suspect most likely patient has aspiration pneumonia being treated with azithromycin cefepime and vancomycin. On 12/20 patient was feeling better however getting 3 green secretions in the trach. On 12/21 patient was getting chest physiotherapy sputum cultures growing Pseudomonas aeruginosa sensitive to cefepime and Acinetobacter baumannii sensitive to Bactrim. On 12/23 antibiotics switched to cefepime for 2 more days and continue ampicillin and stop IV antibiotics as of TuesdayDecember 25 and stop vancomycin. Acinetobacter baumannii is sensitive to Bactrim and started on 12/23 for 7 days. Mildly hyponatremic today. Labs otherwise stable chronic anemia which is stable. Chest x-ray with right upper extremity PICC catheter near the superior cavoatrial junction. CT on admission with worsening consolidation throughout the right lung consistent with right lung collapse/atelectasis with associated mediastinal shift to the right. Small pleural effusions. No PE. 12/26/2022: Patient presented with sepsis 12/18/2022. He was having problem with his G-tube for sometime was replaced at [facility] before discharging to long term suspect most likely patient has aspiration pneumonia being treated with azithromycin cefepime and vancomycin. On 12/20 patient was feeling better however getting green secretions in the trach. On 12/21 patient was getting chest physiotherapy sputum cultures growing Pseudomonas aeruginosa sensitive to cefepime and Acinetobacter baumannii sensitive to Bactrim. On 12/23 antibiotics switched to cefepime for 2 more days and continue ampicillin and stop IV antibiotics as of TuesdayDecember 25 and stop vancomycin. Acinetobacter baumannii is sensitive to Bactrim and started on 12/23 for 7 days. Will stop of Unasyn. mildly hyponatremic. Will adjust water flushes Labs otherwise stable chronic anemia which is stable. Chest x-ray with right upper extremity PICC catheter near the superior cavoatrial junction. CT on admission with worsening consolidation throughout the right lung consistent with right lung collapse/atelectasis with associated mediastinal shift to the right. Small pleural effusions. No PE. 12/27/2022: Patient presented with sepsis 12/18/2022. He was having problem with his G-tube
[2022-12-31] VITALS (20 sets, daily range): BP systolic 112; BP diastolic 66; PULSE 62–90; RESP 16–20; TEMP 36.4–37.2; O2SAT 96–100
[2022-12-31] MEDS: guaiFENesin 200 MG/10 ML UDC PO ×3 (01:39→09:26)
[2022-12-31] MEDS: IPRATROPIUM BR 0.02% INH SOLN 0.5 MG/2.5 ML VIAL INHALATION ×2 (02:50→09:27)
[2022-12-31] MEDS: ACETYLCYSTEINE 20% INHAL SOLN 800 MG/4 ML VIAL 200 MG INHALATION ×2 (02:50→09:26)
[2022-12-31] MEDS: ALBUTEROL SULFATE NEB 2.5 MG/3 ML INH INHALATION ×2 (02:50→09:26)
[2022-12-31 03:44] LABS: Hematocrit 32.7 % (42.0-52.0); Hemoglobin 10.6 g/dL (14.0-18.0); Mean Corpuscular HGB Conc 32.4 g/dl (32-36); Mean Corpuscular Hemoglobin 30.5 pg (26-34); Mean Platelet Volume 11.6 fl (7.4-10.4); Platelet Count Result 279 k/mm3 (150-375); Red Blood Count 3.48 M/mm3 (4.6-6.20); Red Cell Distribution Width 17.4 % (11.5-14.5); White Blood Count 7.8 K/mm3 (4.5-10.0)
[2022-12-31 04:03] LABS: Anion Gap 8 mmol/L (8-16); Blood Urea Nitrogen 20 mg/dL (9-20); Calcium 9.2 mg/dL (8.4-10.2); Carbon Dioxide 26 mmol/L (22-30); Chloride 97 mmol/L (98-107); Estimated CRCL calculation 82 ml/min; Estimated Glomerular Filt Rate > 60; Glucose 96 mg/dL (65-110); Magnesium 1.8 mg/dL (1.6-2.3); Potassium 5.1 mmol/L (3.4-5.0); Sodium 131 mmol/L (137-145)
[2022-12-31] MEDS: LORazepam INJ (*CRX) 2 MG/ML VIAL 1 MG IV PUSH (04:52)
[2022-12-31] MEDS: CENTRAL LINE FLUSH 10 ML IV PUSH ×2 (06:09→15:27)
[2022-12-31] MEDS: LACOSAMIDE (*CRX) 200 MG TABLET FEED TUBE (09:25)
[2022-12-31] MEDS: ASPIRIN 81 MG CHEWABLE TABLET FEED TUBE (09:25)
[2022-12-31] MEDS: polyethylene glycoL 3350 17 GM POWD.PACK FEED TUBE (09:26)
[2022-12-31] MEDS: VALPROIC ACID LIQ 250 MG/5 ML ORAL SOLUTION UDC 750 MG PO (09:26)
[2022-12-31] MEDS: DORNASE ALFA INH SOLN 1 MG/ML 2.5 ML AMP 2.5 MG INHALATION (09:26)
[2022-12-31] MEDS: levETIRAcetam 500 MG TABLET 2000 MG PO (09:26)
[2022-12-31] MEDS: ENOXAPARIN 40 MG/0.4 ML SYRINGE SUB-Q (09:26)
[2022-12-31] MEDS: ATORVASTATIN 40 MG TABLET FEED TUBE (09:27)
[2022-12-31] MEDS: FOLIC ACID 1 MG TABLET FEED TUBE (09:27)
[2022-12-31] MEDS: METOPROLOL TARTRATE 25 MG TABLET FEED TUBE (09:27)
[2022-12-31] MEDS: FLUTICASONE PROPIONATE 0.05% NA SPR 16 GM BTL (*BKC) 1 SPRAY NASAL (09:27)
[2022-12-31] MEDS: LORazepam INJ (*CRX) 2 MG/ML VIAL IV PUSH ×2 (09:47→10:57)
[2022-12-31] MEDS: LACOSAMIDE (*CRX) 200 MG TABLET PO (09:57)
--- NOTE | 2022-12-31 10:32 | PCNFU ---
Nutrition Follow-Up Complete: Swallowing difficulties related to dysphagia as evidenced by need for tube feeding for sole source of nutrition meet estimated needs - Goal being met Goal: Pt current nutrition is Osmolite 1.5 @ 65 ml/h (goal): 2145 kcal, 89 g protein, 1089 ml free water. Flushes 150 ml q 4 h: total water 1989 ml/day. Nutrition recommendation: Continue with current nutrition care plan. Agree with orders Last recorded weight is 60.1 kg. Previous weight 12/28/22: 62 kg. Bowel Motility: Last BM today 12/31/22: +2 Labs Reviewed: Hgb 10.6, Hct 32.7, Na 131, K+ 5.1 Meds Noted: Lovenox Skin: WNL Additional Notes: Tube feeding is well tolerated. Having regular bowel movements. Continue current tube feeding orders with no changes. Monitor tube feeds, tolerance, wt, labs. Follow up every Tuesday and Tuesday.
[2022-12-31 10:56] LABS: Glucose Point of Care 130 mg/dl (65-105)
--- NOTE | 2022-12-31 11:08 | WPDCNINT ---
Assessment and Plan Assessment and plan (1) Status epilepticus: Code(s): G40.901 - Epilepsy, unspecified, not intractable, with status epilepticus Status: Acute Assessment and Plan: Patient has history of [id number] seizures and is on multiple medications including clobazam, lacosamide Keppra He has been having frequent partial seizures hair the hospital. Neurology was consulted and lacosamide was added During my evaluation patient had another episode of brief seizure which spontaneously aborted. Patient had received 2 mg of Ativan earlier I requested nurse to administer additional dose of 2 mg of Ativan Transferred to ICU Start on propofol infusion Will place patient on mechanical ventilation Will obtain EEG Check head CT May need MRI (2) Acute and chronic respiratory failure: Code(s): J96.20 - Acute and chronic respiratory failure, unspecified whether with hypoxia or hypercapnia Status: Acute Assessment and Plan: Patient has chronic tracheostomy patient was admitted on 12/18 and had atelectasis and collapse of right lung suspected secondary to mucus plugging and pneumonia. He was started on broad-spectrum antibiotics Sputum culture grew Pseudomonas aeruginosa and Acinetobacter which were resistant to multiple antibiotics Patient now has completed a course of Bactrim and cefepime to cover for both He is now afebrile and WBCs normal He is currently on Airvo at 25 L and 27% FiO2 which is attached to his tracheostomy Since patient will be started on propofol infusion I will place patient on mechanical ventilation Will check ABG Will image chest to better evaluate atelectasis and infiltrates Hold further antibiotics at this time Bronchodilators (3) Pneumonia: Qualifiers: Laterality: right Lung location: unspecified part of lung Pneumonia type: due to unspecified organism Qualified Code(s): J18.9 - Pneumonia, unspecified organism Code(s): J18.9 - Pneumonia, unspecified organism Status: Acute Assessment and Plan: See above (4) Tracheostomy in place: Code(s): Z93.0 - Tracheostomy status Status: Acute Assessment and Plan: See above (5) Atelectasis of right lung: Code(s): J98.11 - Atelectasis Status: Acute Assessment and Plan: See above (6) History of multiple strokes: Code(s): Z86.73 - Personal history of transient ischemic attack (TIA), and cerebral infarction without residual deficits Status: Acute Assessment and Plan: Continue aspirin statin Plan DVT prophylaxis -Lovenox Stress ulcer prophylaxis -Pepcid Nutrition - Tube Feeds Code Status - Full Code I spoke to patient's brother at bedside and updated him with patient's current status. I answered all his questions. Patient is not but does have biological children. Patient's POA is his sister. Total Critical Care Time - 35 minutes Due to a high probability of clinically significant, life threatening deterioration, the patient required my highest level of preparedness to intervene emergently and I personally spent this critical care time directly and personally managing the patient. This critical care time included obtaining a history; examining the patient; pulse oximetry; ordering and review of studies; arranging urgent treatment with development of a management plan; evaluation of patient's response to treatment; frequent reassessment; and discussions with other providers. It was exclusive of separately billable procedures and treating other patients and teaching time. Please see Assessment and Plan section and the rest of the note for further information on patient assessment and treatment Avionics Integration Engineer Consult Note Consult date: 12/31/22 Time Seen: 10:30 Reason for consult: Status epilepticus, respiratory failure HPI: Bi Tabor is a 62 year old male with past medical history of multiple CVAs, dysphagia requiring PEG tube placemen
[2022-12-31] MEDS: PROPOFOL IV EMULSION 100 ML 1.8 MG IV CONT (11:50)
--- NOTE | 2022-12-31 11:52 | WPDNEUROPN ---
Progress Note: A&P Assessment and Plan (1) Intractable seizure disorder: Code(s): G40.919 - Epilepsy, unspecified, intractable, without status epilepticus Status: Acute (2) Acute and chronic respiratory failure: Code(s): J96.20 - Acute and chronic respiratory failure, unspecified whether with hypoxia or hypercapnia Status: Acute (3) Sepsis with acute hypoxic respiratory failure: Qualifiers: Sepsis type: sepsis due to unspecified organism Severe sepsis shock status: without septic shock Qualified Code(s): A41.9 - Sepsis, unspecified organism; R65.20 - Severe sepsis without septic shock; J96.01 - Acute respiratory failure with hypoxia Code(s): A41.9 - Sepsis, unspecified organism; R65.20 - Severe sepsis without septic shock; J96.01 - Acute respiratory failure with hypoxia Status: Acute (4) Pneumonia: Qualifiers: Laterality: right Lung location: unspecified part of lung Pneumonia type: due to unspecified organism Qualified Code(s): J18.9 - Pneumonia, unspecified organism Code(s): J18.9 - Pneumonia, unspecified organism Status: Acute (5) History of multiple strokes: Code(s): Z86.73 - Personal history of transient ischemic attack (TIA), and cerebral infarction without residual deficits Status: Acute Plan Bi Tabor is a 62 year old male with a history of intractable epilepsy presenting due to respiratory failure, found to have pneumonia. Course has been complicated by recurrent breakthrough seizures. Patient has not been receiving his home Onfi -- could be the etiology of seizures, also could be exacerbated by underlying infection. - Patient is going to be transferred to ICU for infusion with either midazolam or propofol to titrate to seizure control. He will need continuous EEG monitoring, to evaluate for subclinical seizures. Will need transfer to tertiary care center as we are not able to do continuos EEG monitoring at this facility. - Routine EEG has been ordered - Stat CT head has been ordered - Onfi 200mg BID has been ordered - Continue Keppra 2000mg BID - Continue VPA 750mg BID - Continue Vimpat 200mg BID Subjective Date/time seen: 12/31/22 11:52 Interval history: Mr. Tabor is a 62 year old male with a history of of prior strokes, intractable epilepsy, tracheostomy, who was admitted recently due to respiratory distress and tachycardia in the setting of fever. Patient was ultimately found to have pneumonia. During the admission, patient has had recurrent seizures. At baseline he only has a few seizures per year. His home seizure medications are VPA 500mg QID, Lacosamide 200mg BID, Onfi 20mg BID. His VPA was increased to 750mg QID. I do not see Onfi ordered presently. His VPA level from this admission is 90. Keppra level is pending. Patient continued to have focal seizures today, which was observed a facial twitching, and oromotor movements, that are very brief (few seconds at at time). He received a total ofr 4mg of Ativan today, but has continued to have brief clusters of seizures. Patient's brother is at bedside with him today, and is able to recognize when patient is having seizures. CT head has not been done during this admission. Routine EEG has not been done either. [facility], per sister. Review of Systems Review of Systems: ROS unobtainable: Yes unobtainable due to medical condition and unobtainable due to mental status Exam Const: General: uncomfortable HENMT: Mouth: Yes dry mucous membranes Eyes: Pupils: Equal, round and reactive pupils present Resp: Other: transmitted upper airway noise Skin: General skin exam: normal color Neuro: Other: Awake, eyes open, face appears symmetric, does not follow commands, did withdraw his extremities to noxious stimuli. No vocalizations. Witnessed seizure -- facial twitching, mostly involving the left side with oromotor movements. Extrem:
--- NOTE | 2022-12-31 12:01 | PC.NURSE ---
This patient, Bi Tabor, was transferred to ICU-9 on 12/31/22 at 1155. Personal belongings sent with patient. Report given to [place]. Appropriate documentation sent with patient. Family of pt notified of the transfer to ICU
--- NOTE | 2022-12-31 12:05 | PC.NURSE ---
During rn to rn bedside shift report this morning this nurse was informed of a seizure the night nurse witnessed last night. the night rn told this nurse she gave pt 1mg of ativan overnight and it calmed seizure. approx 0940 this am, leaves pt room and tells this rn that pt is actively seizing and to give him 2mg of ativan iv push which then was given at 0947. Seizure activity would stop and start approx q20min. meanwhile MD consults neurology. After that first administration of ativan, neurology sees pt. neurology states that pt is actively seizing now and he needs to be transferred to ICU to be put on a drip of brewery representative choosing. brewery representative came and assessed pt, found pt to be seizing and ordered this nurse to give a 2mg ativan iv push which i then gave. [place] also ordered a bedside glucose test and poc glucose resulted at 130. brewery representative accepted pt for transfer. SBAR was faxed to ICU for accepting data review specialist. This nurse along with another rn and RT transported pt with meds, chart, equiptment, and belongings to ICU 9. bedside report was given to accepting rn.
[2022-12-31] MEDS: VALPROIC ACID LIQ 250 MG/5 ML ORAL SOLUTION UDC 750 MG FEED TUBE ×2 (13:00→18:18)
[2022-12-31 13:16] LABS: Base Excess ABG 1.2 mEq/l (+/-2.0); Device VENTILATOR; Fractional Inspired Oxygen 30 %; Oxygen Saturation ABG 98.5 % (95.0-100.0); Oxyhemoglobin 96.8 % THb (90.0-100.0); PCO2 ABG 36.9 mmHg (35.0-45.0); PO2 ABG 118.5 mmHg (80.0-100.0); PO2 FiO2 Ratio Arterial Blood 3.95 %; Site Drawn LEFT BRACHIAL; Total Hemoglobin 11.6 g/dL (12.0-18.0); pH ABG 7.449 (7.350-7.450)
[2022-12-31 13:17] LABS: Arterial Blood Gas PEEP 5 cmH2O; Arterial Blood Gas Tidal Volume 450 ml; Arterial Blood Gas Vent Mode CMV; Arterial Blood Gas Ventilator rate 16 /MIN
--- NOTE | 2022-12-31 13:45 | P.PNCROSS_ITS ---
Event Note Event Note Event Note: Spoke to Dr. Blake at [facility] ICU. Case discussed tasha colunga has been accepted by [facility] for continues EEG monitoring and further treatment of status epilepticus as per recommendations of our neurologist. Patient will be transferred once a bed is available. Accepting physician Dr Small
--- NOTE | 2022-12-31 13:45 | PM.EVENT ---
Event Note Event Note Event Note: Spoke to Dr. Blake at [facility] ICU. Case discussed patient has been accepted by [facility] for continues EEG monitoring and further treatment of status epilepticus as per recommendations of our neurologist. Patient will be transferred once a bed is available. Accepting physician Dr Small
--- NOTE | 2022-12-31 13:58 | PM.TDS ---
Transfer Discharge Sum: Prov Provider Date of admission: 12/18/22 07:25 Primary care physician: Burke Restrepo, MD Admitting clinician: Rachel Roach DO Consults: 12/28/22 Consult to Physician Routine Comment: Consulting Provider: Rehan Palmer call center rn/MD group to consult: Reason for consultation: seizures Has provider been notified: Yes DS: Admitting Diagnosis Discharge Date 12/31/2022 Admitting Diagnosis [facility] in from [facility] due to hypoxia Transfer Discharge Sum: Med Medications Active and Home Medications: Home Medications atorvastatin 40 mg tablet 40 mg feeding tube DAILY 11/14/22 [History Confirmed 12/18/22] clobazam 20 mg tablet 20 mg feeding tube BID 11/14/22 [History Confirmed 12/18/22] divalproex 125 mg capsule,delayed release sprinkle 500 mg QID 11/14/22 [History Confirmed 12/18/22] fluticasone propionate 50 mcg/actuation nasal spray,suspension 1 spray intranasal DAILY 11/14/22 [History Confirmed 12/18/22] folic acid 1 mg tablet 1 mg feeding tube DAILY 11/14/22 [History Confirmed 12/18/22] lacosamide 200 mg tablet 200 mg feeding tube BID 11/14/22 [History Confirmed 12/18/22] tamsulosin 0.4 mg capsule 0.4 mg PO DAILY 11/14/22 [History Confirmed 12/18/22] aspirin 81 mg chewable tablet 81 mg feeding tube DAILY 11/15/22 [History Confirmed 12/18/22] enoxaparin 40 mg/0.4 mL subcutaneous syringe 40 mg subcut DAILY 11/15/22 [History Confirmed 12/18/22] guaifenesin 200 mg/5 mL oral liquid 100 mg feeding tube Q6H 11/15/22 [History Confirmed 12/18/22] levetiracetam 1,000 mg tablet 2,000 mg PO BID 11/15/22 [History Confirmed 12/18/22] ipratropium bromide 0.02 % solution for inhalation 0.5 mg (2.5 mL) inhalation Q4HRT 30 days #450 mL 11/17/22 [Rx Confirmed 12/18/22] heparin (porcine) 5,000 unit/mL injection syringe 5,000 unit subcut Q8H 12/18/22 [History Confirmed 12/18/22] metoprolol tartrate 25 mg tablet 25 mg feeding tube BID 12/18/22 [History Confirmed 12/18/22] polyethylene glycol 3350 17 gram/dose oral powder 17 g feeding tube DAILY 12/18/22 [History Confirmed 12/18/22] Active Medications Acetaminophen (Acetaminophen 325 Mg Tablet) 650 mg FEED TUBE Q4H PRN PRN Reason: Mild Pain (1-3) or Fever Last Admin: 12/29/22 02:30 Dose: 650 mg Albuterol (Albuterol Sulfate Neb 2.5 Mg/3 Ml Inh) 2.5 mg INHALATION Q6HRT PRN PRN Reason: Wheezing Alteplase, Recombinant (Alteplase 2 Mg Vial (Cathflo)) 2 mg IV PUSH ONCE PRN PRN Reason: Line Occlusion Last Admin: 12/24/22 23:54 Dose: 2 mg Aspirin (Aspirin 81 Mg Chewable Tablet) 81 mg FEED TUBE DAILY [facility] Last Admin: 12/31/22 09:25 Dose: 81 mg Atorvastatin Calcium (Atorvastatin 40 Mg Tablet) 40 mg FEED TUBE DAILY [facility] Last Admin: 12/31/22 09:27 Dose: 40 mg Enoxaparin Sodium (Enoxaparin 40 Mg/0.4 Ml Syringe) 40 mg SUB-Q DAILY [facility] Last Admin: 12/31/22 09:26 Dose: 40 mg Famotidine (Famotidine 20 Mg Tablet) 20 mg FEED TUBE Q12HR [facility] Fluticasone Propionate (Fluticasone Propionate 0.05% Na Spr 16 Gm Btl (*Bkc)) 1 spray NASAL DAILY [facility] Last Admin: 12/31/22 09:27 Dose: 1 spray Folic Acid (Folic Acid 1 Mg Tablet) 1 mg FEED TUBE DAILY [facility] Last Admin: 12/31/22 09:27 Dose: 1 mg Guaifenesin (Guaifenesin 200 Mg/10 Ml Udc) 200 mg PO Q4HR PRN PRN Reason: Cough Propofol (Diprivan) 100 mls @ 3.606 mls/hr IV CONT .[id number] [facility]; Protocol Last Titration: 12/31/22 12:04 Dose: 10 mcg/kg/min, 3.61 mls/hr Ipratropium [place] (Ipratropium Br 0.02% Inh Soln 0.5 Mg/2.5 Ml Vial) 0.5 mg INHALATION Q6HRT PRN PRN Reason: Wheezing Lacosamide (Lacosamide (*Crx) 200 Mg Tablet) 200 mg FEED TUBE Q12HR [facility] Last Admin: 12/31/22 09:25 Dose: 200 mg Levetiracetam (Levetiracetam 500 Mg Tablet) 2,000 mg PO Q12HR [facility] Last Admin: 12/31/22 09:26 Dose: 2,000 mg Lorazepam (Lorazepam Inj (*Crx) 2 Mg/Ml Vial) 4 mg IV PUSH Q1H PRN PRN Reason: seizure Metoprolol Tartrate (Metoprolol Tartrate 25 Mg Tablet) 25 mg FEED TUBE Q12HR [facility] Last Admin: 12/31/22 09:27
[2022-12-31 15:41] LABS: Triglycerides 61 mg/dL (<150)
[2022-12-31] MEDS: PROPOFOL IV EMULSION 100 ML 10.82 MG IV CONT (18:26)
[2022-12-31 22:54] LABS: Levetiracetam Keppra 101.1 mcg/mL (6.0-46.0)
--- NOTE | 2023-01-01 12:18 | P.NEURO_ITS ---
Neurology EEG Report General Information Date of Study: 12/31/22 TEST Routine EEG DIAGNOSIS Intractable epilepsy, status epilepticus CONDITION OF RECORDING Unresponsive, sedated EEG NUMBER [id number] CLINICAL HISTORY Patient has a history of intractable epilepsy and is trach dependent. He was adm itted for pneumonia. During admission, he started having breakthrough seizures, which are described as facial twitching. EEG DESCRIPTION The recording is continuous. The background is slow, with mostly theta range rhythm. There is no clear posterior dominant rhythm or anterior-posterior gradient. Normal sleep architecture is not seen. Patient had 3 electrographic seizures during the recording, ranging between 40-90 seconds in length, approximately. Electrographically, the seizures all originated from the right temporal region (T4, F8), as polymorphic rhythmic spikes in the range of 8-9 Hz, with progression to the entire right hemisphere. There is no obvious secondary generalization. The seizure is followed by right hemispheric slowing in the range of delta range waves. Clinically, it is documented that the patient was having twitching movements of the face and tongue at that time of the seizure (laterality is not specified). There are also occasional isolated spike and wave discharges in the in the right temporal region (T4, F8). IMPRESSION This is an abnormal routine EEG due to the presence of three electrographic seizures that were captured, originating from the right temporal region, clinically associated with facial twitching and oromotor movements. Clinical correlation recommended.
== END 2022-12-31 18:44 | disposition short-term general hospital (02) | DRG 720 ==
LOC: ANHED 12-18 02:14 → ANHIMU 12-18 05:50 → ANH3MEDSUR 12-20 16:38 → ANHICU 01-03 09:20
PROVIDERS: Internal Medicine; Admitting Provider Internal Medicine; Emergency Provider Emergency Medicine; PCP Internal Medicine; Visit Provider Family Medicine
DX: A41.9 Sepsis, unspecified organism (principal); J96.21 Acute and chronic respiratory failure with hypoxia; J69.0 Pneumonitis due to inhalation of food and vomit; T17.890A Other foreign object in other parts of respiratory tract causing asphyxiation, initial encounter; G40.911 Epilepsy, unspecified, intractable, with status epilepticus; J18.9 Pneumonia, unspecified organism; F01.52 Vascular dementia, unspecified severity, with psychotic disturbance; E87.1 Hypo-osmolality and hyponatremia; R13.13 Dysphagia, pharyngeal phase; F41.9 Anxiety disorder, unspecified; B96.5 Pseudomonas (aeruginosa) (mallei) (pseudomallei) as the cause of diseases classified elsewhere; B96.89 Other specified bacterial agents as the cause of diseases classified elsewhere; Z89.612 Acquired absence of left leg above knee; R65.20 Severe sepsis without septic shock; Z20.822 Contact with and (suspected) exposure to COVID-19; N40.0 Benign prostatic hyperplasia without lower urinary tract symptoms; D50.9 Iron deficiency anemia, unspecified; Z86.73 Personal history of transient ischemic attack (TIA), and cerebral infarction without residual deficits; Z93.1 Gastrostomy status; Z93.0 Tracheostomy status; J98.11 Atelectasis
CPT/HCPCS: 36415; 36569; 36600; 71045; 71275; 74018; 80048; 80053; 80164; 80177; 80202; 81001; 82565; 82805; 82948; 83605; 83735; 83880; 84145; 84478; 84484; 85025; 85027; 85055; 85610; 85730; 87040; 87070; 87077; 87081; 87186; 87205; 87449; 87581; 87636; 87899; 93005; 94002; 94640; 94669; 95816; 96361; 96365; 96367; 99285; A9270; C1751; G0378; G0379; J0295; J0456; J0692; J1650; J2060; J2704; J2997; J3370; J7030; Q9967

== ENCOUNTER 2023-02-11 07:36 | Inpatient (IN) | payer OTHER, SELFPAY ==
[2023-02-11] VITALS (67 sets, daily range): BP systolic 101–161; BP diastolic 73–102; PULSE 86–110; RESP 9–28; TEMP 36.3–36.7; O2SAT 94–100; BMI 19.1
--- NOTE | ~2023-02-11 | XR_ITS ---
EXAMINATION: XR chest 1V portable DATE: 02/21/2023 08:53 INDICATION: Right lung lower lobe collapse. TECHNIQUE: A single frontal view of the chest was obtained. COMPARISON: Chest single view 02/19/2023, chest CT 02/17/2023 FINDINGS: There is volume loss of right hemithorax. There are airspace opacities in the lower lung zo krysta, right worse than left. There is a small right pleural effusion. No pneumothorax. The heart size is normal. There is a tracheostomy tube in expected position. There is a right extremity catheter wit h tip in the right axillary vein. IMPRESSION: 1. Airspace opacities in the lower lung zones, right worse than left with improvement on the right, l ikely a combination of atelectasis and pneumonia. 2. Stable small right pleural effusion. Reviewed, dictated and finalized at location A. IMPRESSION: 1. Airspace opacities in the lower lung zones, right worse than left with impro vement on the right, likely a combination of atelectasis and pneumonia. 2. Stable small right pleural effusion.
--- NOTE | ~2023-02-11 | CT_ITS ---
EXAMINATION: CT diagnostic chest wo con DATE: 02/17/2023 10:28 INDICATION: Atelectasis TECHNIQUE: Computed tomography (CT) of the chest was performed without intravenous contrast. The dose -length product (DLP) was 182.53 mGy-cm. Automated exposure control and iterative reconstruction tech [employer] were employed. COMPARISON: 12/18/2022 FINDINGS: A tracheostomy is in expected position. There are small pleural effusions. There are bilate ral dependent airspace opacities of the lungs, right greater than left. There is no pneumothorax. The re are groups of tree-in-bud nodules in the right upper lobe. There is volume loss in the right hemit horax. There are secretions versus aspirated material in the trachea and right mainstem bronchus. The heart size is normal. There is calcified coronary artery atherosclerosis. No pathologically enlarged thoracic lymph nodes are identified. Mild bilateral gynecomastia is noted. There is an old fracture of the distal right clavicle. There is mild thoracic spondylosis. There is a healed sternal fracture. IMPRESSION: 1. Small pleural effusions with dependent airspace opacities of the lungs, atelectasis versus pneumon ia. 2. Tree-in-bud opacities of the right upper lobe, consistent with bronchiolitis. 3. Secretions versus aspirated material in the trachea and right mainstem bronchus. Reviewed, dictated and finalized at location L. IMPRESSION: 1. Small pleural effusions with dependent airspace opacities of the lungs, atel ectasis versus pneumonia. 2. Tree-in-bud opacities of the right upper lobe, consistent with bronchiolitis . 3. Secretions versus aspirated material in the trachea and right mainstem bronc hus.
--- NOTE | ~2023-02-11 | XR_ITS ---
XR chest 1V portable 02/19/2023 09:13 Indication: Pneumonia Procedure: AP portable chest Comparison: 02/1602/11/2023 Findings: There is right thoracic volume loss, consistent with atelectasis. Cannot exclude superimpos ed pneumonia. There is hyperinflation of the left lung. There is a tracheostomy tube present. There i s apparent occlusion of the right mainstem bronchus. Possible small right effusion. Central venous ca theter tip in the right axilla. Impression: 1: Persistent unchanged volume loss, stable since 02/11/2023. There is mediastinal shift to the right. Reviewed, dictated and finalized at location A. Impression: 1: Persistent unchanged volume loss, stable since 02/11/2023. There is mediastin al shift to the right.
--- NOTE | ~2023-02-11 | XR_ITS ---
EXAMINATION: XR chest 1V portable INDICATION: Pneumonia TECHNIQUE: Portable AP chest at 1040 hours COMPARISON: 02/11/2023 FINDINGS: A tracheostomy is noted and appears to be in expected position. There is a small right pleu ral effusion. There is volume loss in the right hemithorax. There are minimal airspace opacities thro ughout the right lung and in the left lung base without significant change. The cardiomediastinal rossana houette is stable. A right upper extremity catheter ends with its tip in the right axilla. IMPRESSION: 1. Airspace opacities and volume loss throughout the right lung and left basilar airspace opacity, co nsistent with atelectasis versus pneumonia. 2. Small right pleural effusion. Reviewed, dictated and finalized at location B. IMPRESSION: 1. Airspace opacities and volume loss throughout the right lung and left basila r airspace opacity, consistent with atelectasis versus pneumonia. 2. Small right pleural effusion.
--- NOTE | ~2023-02-11 | XR_ITS ---
EXAMINATION: XR chest 1V portable DATE: 02/11/2023 08:36 INDICATION: Dyspnea. TECHNIQUE: A single frontal view of the chest was obtained. COMPARISON: Chest single view 12/31/2022, chest CT 12/18/2022 FINDINGS: There is volume loss of right hemithorax. There are airspace opacities in all right lung zo krysta with a basilar predominance. There are airspace opacities in left lower lung zone. There is a sma ll right pleural effusion. No pneumothorax. The heart size is normal. There is a tracheostomy tube in expected position. There is a right upper extremity catheter with tip overlying the axilla. IMPRESSION: 1. Right lung disease with volume loss, likely atelectasis from mucous plugging. Airspace opacities i n left lower lung zone, likely atelectasis. Pneumonia cannot be excluded. 2. Small right pleural effusion. Reviewed, dictated and finalized at location A. IMPRESSION: 1. Right lung disease with volume loss, likely atelectasis from mucous plugging . Airspace opacities in left lower lung zone, likely atelectasis. Pneumonia can not be excluded. 2. Small right pleural effusion.
--- NOTE | 2023-02-11 07:48 | PC.NURSE ---
NRB decreased to 10L
--- NOTE | 2023-02-11 07:49 | ECG_ITS ---
Measurements Intervals [place] Rate: 88 P: 53 WV: 168 QRS: 14 QRSD: 89 T: 74 QT: 327 QTc: 397 Interpretive Statements SINUS RHYTHM VENTRICULAR PREMATURE COMPLEX CANNOT RULE OUT SEPTAL INFARCT, AGE INDETERMINATE BORDERLINE ST-T WAVE ABNORMALITY- HIGH LATERAL LEADS ABNORMAL ECG COMPARED TO ECG 12/17/2022 22:05:00 SINUS RHYTHM NOW PRESENT Electronically Signed On 02-11-2023 8:15:16 CDT by Dave Hernandez D.O.
--- NOTE | 2023-02-11 07:51 | ED.SOB ---
HPI - SOB/Dyspnea General Chief Complaint: Shortness of Breath/Dyspnea Stated Complaint: RESP DISTRESS History of Present Illness HPI Narrative: HPI limited due to patient's nonverbal status This is a 63-year-old male, with past history of stroke, COPD with aphasia and trach dependent, [facility] for [facility] distress. EMS reports, staff at the [facility] do not have respiratory therapy. The patient was reportedly coughing white frothy liquid from his trach. He was found saturating in the mid 80s. EMS suctioned the patient and placed him on nonrebreather at 15 L with improvement to the mid to high 90s. Related Data Home Medications Medication Instructions Recorded Confirmed atorvastatin 40 mg tablet 40 mg feeding tube QHS 11/14/22 12/18/22 clobazam 20 mg tablet 20 mg feeding tube BID 11/14/22 12/18/22 divalproex 125 mg capsule,delayed 500 mg QID 11/14/22 12/18/22 release sprinkle folic acid 1 mg tablet 1 mg feeding tube DAILY 11/14/22 12/18/22 lacosamide 200 mg tablet 200 mg feeding tube BID 11/14/22 12/18/22 aspirin 81 mg chewable tablet 81 mg feeding tube DAILY 11/15/22 12/18/22 enoxaparin 40 mg/0.4 mL 40 mg subcut DAILY 11/15/22 12/18/22 subcutaneous syringe levetiracetam 1,000 mg tablet 2,000 mg PO BID 11/15/22 12/18/22 metoprolol tartrate 25 mg tablet 25 mg feeding tube BID 12/18/22 12/18/22 polyethylene glycol 3350 17 17 g feeding tube DAILY 12/18/22 12/18/22 gram/dose oral powder bisacodyl 10 mg rectal suppository 10 mg RECTAL DAILY PRN Itching 02/11/23 hydroxyzine HCl 25 mg tablet 25 mg feeding tube QID PRN Itching 02/11/23 lansoprazole 30 mg capsule,delayed 30 mg feeding tube DAILY 02/11/23 release magnesium citrate (Citroma oral 300 ml feeding tube DAILY PRN 02/11/23 solution) Constipation magnesium hydroxide 400 mg/5 mL 30 ml feeding tube HS PRN 02/11/23 oral suspension (Milk of Magnesia) Constipation metoprolol tartrate 5 mg/5 mL 5 mg IV QID PRN Tachycardia 02/11/23 intravenous solution sennosides 8.6 mg tablet (senna) 8.6 mg feeding tube HS 02/11/23 sodium phosphates 19 gram-7 197 ml RECTAL ONCE 02/11/23 gram/118 mL enema (Fleet Enema) thiamine HCl (vitamin B1) 100 mg 100 mg feeding tube DAILY 02/11/23 tablet Allergies Allergy/AdvReac Type Severity Reaction Status Date / Time clonazepam Allergy Unknown Verified 11/14/22 22:11 Review of Systems Review of Systems: Unable to obtain review of systems due to patient's baseline nonverbal status PMFSH Past Medical History Medical History COPD (chronic obstructive pulmonary disease) Dysphagia Esophageal diverticulum Expressive aphasia Gastroparesis History of BPH History of multiple strokes Iron deficiency anemia Seizure disorder Vascular dementia with psychotic disturbance Surgical History Surgical History Gastrostomy tube in place History of left above knee amputation Tracheostomy in place Family History Family History Other Unknown family medical history Social History Social History Social History: Code status: Full code Surrogate decision maker: Sister Smoking status: Never smoker Alcohol intake: never Substance use: never Substance use type: does not use Spiritual care concerns: No Exam Narrative: GENERAL: Well-developed, well-nourished, nonverbal, and in no acute distress. HEAD: Normocephalic, atraumatic. EYES: PERRLA and EOMI. ENT: Mucous membranes moist. Oropharynx without tonsillar hypertrophy exudate or other lesions. NECK: Supple. Trach in place without bleeding, drainage or audible stridor. No JVD CHEST: Clear to auscultation on the left, diminished breath sounds on the right. No respiratory distress. No wheeze
[2023-02-11] MEDS: ALBUTEROL SULFATE NEB 2.5 MG/3 ML INH INHALATION (08:05)
[2023-02-11] MEDS: IPRATROPIUM BR 0.02% INH SOLN 0.5 MG/2.5 ML VIAL INHALATION (08:06)
[2023-02-11 08:08] LABS: Basophils Percent Auto 0.5 % (0.2-1.2); Eosinophils Absolute Auto 0.4 K/mm3 (0-0.3); Eosinophils Percent Auto 6.2 % (0-4.4); Hematocrit 35.5 % (42.0-52.0); Hemoglobin 11.4 g/dL (14.0-18.0); Immature Granulocyte Absolute 0.01 K/mm3 (0.00-0.031); Immature Granulocyte Percent A 0.2 % (0-0.5); Lymphocytes Absolute Auto 2.07 K/mm3 (0.9-3.2); Lymphocytes Percent Auto 31.4 % (18.3-44.2); Mean Corpuscular HGB Conc 32.1 g/dl (32-36); Mean Corpuscular Hemoglobin 31.8 pg (26-34); Mean Corpuscular Volume 98.9 fl (80-100); Mean Platelet Volume 12.1 fl (7.4-10.4); Monocytes Absolute Auto 0.7 K/mm3 (0.1-0.6); Monocytes Percent Auto 10.8 % (2.6-8.5); Neutrophils Absolute Auto 3.4 K/mm3 (1.3-6.7); Neutrophils Percent Auto 50.9 % (45.5-73.1); Platelet Count Result 170 k/mm3 (150-375); Red Blood Count 3.59 M/mm3 (4.6-6.20); Red Cell Distribution Width 14.7 % (11.5-14.5); White Blood Count 6.6 K/mm3 (4.5-10.0)
[2023-02-11 08:18] LABS: Alanine Aminotransferase 15 U/L (6-50); Albumin Level 3.1 g/dL (3.5-5.1); Alkaline Phosphatase 97 U/L (38-126); Anion Gap 5 mmol/L (8-16); Aspartate Amino Transferase 24 U/L (17-59); Bilirubin,Total 0.2 mg/dL (0.2-1.3); Blood Urea Nitrogen 20 mg/dL (9-20); Calcium 9.6 mg/dL (8.4-10.2); Carbon Dioxide 32 mmol/L (22-30); Chloride 103 mmol/L (98-107); Estimated Glomerular Filt Rate > 60; Glucose 96 mg/dL (65-110); Potassium 4.4 mmol/L (3.4-5.0); Sodium 140 mmol/L (137-145)
--- NOTE | 2023-02-11 08:24 | PC.NURSE ---
dr conte at bedside for laceration repair.
--- NOTE | 2023-02-11 09:46 | PCCCNOTE ---
Addendum entered by Trista Desouza RN 02/11/23 17:31: Met with Adriane. She states she signed a contract with [facility] yesterday that stated they could manage his care which is to include suction. She was also concerned as they knew he was coming but didn't have his medications there when he arrived so he didn't get his seizure medication. There is one seizure med that is not on formulary here and she plans to go to [facility] to see if it's come in there so she can bring it here. Otherwise she may request he be transferred to [facility] as they do have it. She continues to want him to return to [facility] and has been in contact with Angela there. She does not want any discussion about his care to go on without her involvement. Informed her who the CC will be tomorrow who she will be speaking with. Addendum entered by Trista Desouza RN 02/11/23 16:14: [facility] returned call and they take trachs and would be willing to look at a referral. Call placed to sister to update her. Adriane states pt has been in [facility] and doesn't want him to go there as they did not take care of him. She feels that facility caused additional problems but she plans on going by there to see if it's changed. She repeated that she wants him to stay at [facility] as they have cared for him the best. Call received from Kathy, x [phone], social worker aide with [facility]. She states they have pt come in when he's supposedly stable but then are unable to maintain an adequate O2 sat. She is wondering if sister would consider hospice for pt. The facility has an advanced directive that pt signed 5 years ago when he wanted all measure taken to keep him alive. She's wondering if he's at a point where he would change his mind. Adriane is to come in today to talk face to face and that may be part of the discussion. Original Note: Call received from provider requesting assessment of pt's current situation being appropriate for his level of need. He has a trach and has difficulty with a large amt of secretions. Provider was informed by the facility that they do not have respiratory therapy there. Call placed to [facility] in [place] and the rehabilitation therapy aide will call back. There is only one other facility [facility] that accepts trachs and that's [facility]. Call placed to pt's sister Adriane Hilliard [phone]. She is on her way into see pt. here. She was informed of the alternate facility idea and she would rather he stay at [facility] as he has been cared for the best there. They had the suction equipment in his room last night but the staff was not able to work it. Tessie from [facility] returned call. She states they do have the equipment and staff are trained but that they have difficulty maintaining his O2 sat due to the amount of secretions. Tessie plans on having the care team speak with pt and sister about different facility that has 24 hour respiratory care. Tessie recommended [facility] in [place]. Call placed to [facility] in [place] which is a [facility] facility also and message left requesting return call.
--- NOTE | 2023-02-11 11:39 | PC.NURSE ---
multiple phone calls placed to [facility] to check if pt has had his morning meds. unable to get ahold of rn or don. pts family is concerned that pt may have a seizure
[2023-02-11] MEDS: levETIRAcetam 1000MG/NACL100ML 1,000 MG/100 ML BAG 400 MG IVPB (13:01)
[2023-02-11] MEDS: DIVALPROEX SODIUM DR 250 MG TABEC 500 MG XX (13:16)
--- NOTE | 2023-02-11 15:12 | PC.NURSE ---
Pt repositioned, cleaned light brown soft stool from pt and linens changed. Resp remains WNL. Hospitalist at bedside.
[2023-02-11] MEDS: levETIRAcetam 500MG/NACL 100ML 500 MG/100 ML BAG 400 MG (16:03)
[2023-02-11] MEDS: levETIRAcetam 500MG/NACL 100ML 500 MG/100 ML BAG 400 MG IVPB (16:18)
--- NOTE | 2023-02-11 16:44 | PC.NURSE ---
care coordination at bedside per family request.
--- NOTE | 2023-02-11 16:50 | PC.NURSE ---
Family asking for pt to be suctioned. Resp notified. Pt in NAD at this time.
--- NOTE | 2023-02-11 18:42 | PC.NURSE ---
Pt trach and oral suctioned by this RN
[2023-02-11] MEDS: DIVALPROEX SODIUM SPRINKLE 125 MG CAP.DR 500 MG FEED TUBE (18:57)
--- NOTE | 2023-02-11 18:57 | PC.NURSE ---
pt given clobazam 20 mg per g tube. [facility] does not have this drug on formulary. pts sister brought in a dose and can supply more in the morning once neurologist office opens.
--- NOTE | 2023-02-11 19:28 | PC.NURSE ---
Report received from ALFRED Charles. Assumed care of patient at this time.
[2023-02-11] MEDS: LACOSAMIDE (*CRX) 200 MG TABLET FEED TUBE (22:44)
[2023-02-11 23:44] LABS: Appearance Urine Cloudy (Clear); Bacteria Urine None Seen /hpf; Bilirubin Urine Negative (Negative); Blood Urine Negative (Negative); Color Urine Yellow (Yellow); Glucose Urine UA Negative (Negative); Ketones Urine Negative (Negative); Leukocyte Esterase Ur 3+ LEU/UL (Negative); Need Manual Microscopic Reviewed; Nitrate Urine Positive (Negative); Protein Urine 1+ mg/dL (Negative); RBC Urine 0-2 /hpf (0-2); Specific Grav Ur 1.014 (1.001-1.035); Squamous Epithelial Cell Urine None seen /hpf (Few); WBC Urine 21-50 /hpf
[2023-02-11 23:46] LABS: Add Urine Microscopic? YES
[2023-02-12] VITALS (28 sets, daily range): BP systolic 116–119; BP diastolic 52–82; PULSE 74–110; RESP 16–22; TEMP 36.1–36.7; O2SAT 92–100
--- NOTE | 2023-02-12 00:36 | PM.IMHP ---
H&P: HPI History of Present Illness Date/Time: 02/12/23 00:36 Chief Complaint: Trach Care Narrative: 63-year-old male presents here with increased work of breathing with past medical history of CVA with subsequent aphasia and trach dependent, and COPD. limited HPI due to patient's non verbal status. Per EMS report, here for respiratory distress. Patient is currently staying at [facility]. [facility] informed EMS that they do not have respiratory therapy. Called due to coughing episode where patient was producing frothy liquid from his trach. Oxygen saturation in the mid 80s. Initial interventions from EMS, patient was suctioned and placed on non-rebreather at 15 L with improvement of O2 saturation, 90s. Patient able to provide a few words concerning his current condition - feeling bad , reported pain but unable to provide where. Also able to communicate that he needed all of his medications. Patient able to nod yes/no, used to assess orientation. Patient orientated to self only. Review of Systems Review of Systems: All systems reviewed & are unremarkable except as noted in HPI and below PMFSH Past Medical History Medical History COPD (chronic obstructive pulmonary disease) Dysphagia Esophageal diverticulum Expressive aphasia Gastroparesis History of BPH History of multiple strokes Iron deficiency anemia Seizure disorder Vascular dementia with psychotic disturbance Surgical History Surgical History Gastrostomy tube in place History of left above knee amputation Tracheostomy in place Family History Family History Other Unknown family medical history Social History Social History Social History: Code status: Full code Surrogate decision maker: Sister Smoking status: Never smoker Alcohol intake: never Substance use: never Substance use type: does not use Spiritual care concerns: No Meds Home Medications and Allergies Home Medications Medication Instructions Recorded Confirmed Type atorvastatin 40 mg tablet 40 mg feeding tube QHS 11/14/22 02/11/23 History clobazam 20 mg tablet 20 mg feeding tube Q12H 11/14/22 02/11/23 History folic acid 1 mg tablet 1 mg feeding tube DAILY 11/14/22 02/11/23 History lacosamide 200 mg tablet 200 mg feeding tube Q12H 11/14/22 02/11/23 History aspirin 81 mg chewable tablet 81 mg feeding tube DAILY 11/15/22 02/11/23 History enoxaparin 40 mg/0.4 mL 40 mg subcut DAILY 11/15/22 02/11/23 History subcutaneous syringe levetiracetam 1,000 mg tablet 2,000 mg PO Q12H 11/15/22 02/11/23 History metoprolol tartrate 25 mg tablet 25 mg feeding tube Q12H 12/18/22 02/11/23 History polyethylene glycol 3350 17 17 g feeding tube DAILY 12/18/22 02/11/23 History gram/dose oral powder bisacodyl 10 mg rectal suppository 10 mg RECTAL DAILY PRN Constipation 02/11/23 02/11/23 History divalproex 500 mg tablet,delayed 500 mg Q6H 02/11/23 02/11/23 History release guaifenesin 200 mg tablet 200 mg PO QID 02/11/23 02/11/23 History hydroxyzine HCl 25 mg tablet 25 mg feeding tube QID PRN Itching 02/11/23 02/11/23 History lansoprazole 30 mg capsule,delayed 30 mg feeding tube DAILY 02/11/23 02/11/23 History release magnesium citrate (Citroma oral 296 ml feeding tube DAILY PRN 02/11/23 02/11/23 History solution) Constipation magnesium hydroxide 400 mg/5 mL 30 ml feeding tube HS PRN 02/11/23 02/11/23 History oral suspension (Milk of Magnesia) Constipation metoprolol tartrate 5 mg/5 mL 5 mg IV Q6H PRN Tachycardia 02/11/23 02/11/23 History intravenous solution sennosides 8.6 mg tablet (senna) 8.6 mg feeding tube HS PRN 02/11/23 02/11/23 History Constipation sodium phosphates 19 gram-7 197 ml RECTAL ONCE 02/11/23 02/11/23 H
[2023-02-12] MEDS: IPRATROPIUM BR 0.02% INH SOLN 0.5 MG/2.5 ML VIAL INHALATION ×4 (01:31→20:23)
[2023-02-12] MEDS: ALBUTEROL SULFATE NEB 2.5 MG/3 ML INH INHALATION ×4 (01:31→20:23)
[2023-02-12] MEDS: DIVALPROEX SODIUM SPRINKLE 125 MG CAP.DR 500 MG FEED TUBE ×4 (01:32→17:42)
[2023-02-12] MEDS: SALINE LOCK FLUSH 10 ML IV PUSH ×3 (06:04→21:19)
[2023-02-12 06:12] LABS: Basophils Percent Auto 0.4 % (0.2-1.2); Eosinophils Absolute Auto 0.4 K/mm3 (0-0.3); Eosinophils Percent Auto 3.9 % (0-4.4); Hematocrit 35.3 % (42.0-52.0); Hemoglobin 11.5 g/dL (14.0-18.0); Immature Granulocyte Absolute 0.02 K/mm3 (0.00-0.031); Immature Granulocyte Percent A 0.2 % (0-0.5); Lymphocytes Percent Auto 33.2 % (18.3-44.2); Mean Corpuscular HGB Conc 32.6 g/dl (32-36); Mean Corpuscular Hemoglobin 31.7 pg (26-34); Mean Corpuscular Volume 97.2 fl (80-100); Mean Platelet Volume 10.8 fl (7.4-10.4); Monocytes Absolute Auto 0.7 K/mm3 (0.1-0.6); Monocytes Percent Auto 7.3 % (2.6-8.5); Platelet Count Result 180 k/mm3 (150-375); Red Blood Count 3.63 M/mm3 (4.6-6.20); Red Cell Distribution Width 14.4 % (11.5-14.5)
[2023-02-12 06:25] LABS: Anion Gap 5 mmol/L (8-16); Blood Urea Nitrogen 14 mg/dL (9-20); Calcium 9.5 mg/dL (8.4-10.2); Carbon Dioxide 28 mmol/L (22-30); Chloride 103 mmol/L (98-107); Estimated CRCL calculation 112 ml/min; Estimated Glomerular Filt Rate > 60; Glucose 86 mg/dL (65-110); Potassium 4.1 mmol/L (3.4-5.0); Sodium 136 mmol/L (137-145)
[2023-02-12] MEDS: FOLIC ACID 1 MG TABLET FEED TUBE (09:52)
[2023-02-12] MEDS: THIAMINE HCL 100 MG TABLET FEED TUBE (09:52)
[2023-02-12] MEDS: levETIRAcetam 500 MG TABLET 2000 MG PO ×2 (09:52→21:16)
[2023-02-12] MEDS: guaiFENesin 200 MG/10 ML UDC FEED TUBE ×4 (09:52→21:17)
[2023-02-12] MEDS: ENOXAPARIN 40 MG/0.4 ML SYRINGE SUB-Q (09:52)
[2023-02-12] MEDS: ASPIRIN 81 MG CHEWABLE TABLET FEED TUBE (09:52)
[2023-02-12] MEDS: LACOSAMIDE (*CRX) 200 MG TABLET FEED TUBE ×2 (09:52→21:17)
[2023-02-12] MEDS: METOPROLOL TARTRATE 25 MG TABLET FEED TUBE ×2 (09:53→21:16)
[2023-02-12] MEDS: LANSOPRAZOLE ORAL SUSP 30 MG/10 ML ORAL.SUSP FEED TUBE (09:54)
[2023-02-12] MEDS: DORNASE ALFA INH SOLN 1 MG/ML 2.5 ML AMP 2.5 MG INHALATION ×2 (10:51→20:23)
[2023-02-12 11:40] LABS: Glucose Point of Care 87 mg/dl (65-105)
[2023-02-12 17:53] LABS: Glucose Point of Care 81 mg/dl (65-105)
[2023-02-12] MEDS: ATORVASTATIN 40 MG TABLET FEED TUBE (21:39)
[2023-02-12 23:36] LABS: Glucose Point of Care 85 mg/dl (65-105)
[2023-02-13] VITALS (25 sets, daily range): BP systolic 101–152; BP diastolic 62–84; PULSE 57–90; RESP 16–20; TEMP 36.5–36.9; O2SAT 93–100
[2023-02-13] MEDS: DIVALPROEX SODIUM SPRINKLE 125 MG CAP.DR 500 MG FEED TUBE ×3 (00:05→12:24)
[2023-02-13] MEDS: IPRATROPIUM BR 0.02% INH SOLN 0.5 MG/2.5 ML VIAL INHALATION ×4 (02:23→19:48)
[2023-02-13] MEDS: ALBUTEROL SULFATE NEB 2.5 MG/3 ML INH INHALATION ×4 (02:23→19:49)
[2023-02-13] MEDS: SALINE LOCK FLUSH 10 ML IV PUSH ×3 (07:05→21:23)
[2023-02-13] MEDS: DORNASE ALFA INH SOLN 1 MG/ML 2.5 ML AMP 2.5 MG INHALATION ×2 (07:57→19:48)
[2023-02-13] MEDS: guaiFENesin 200 MG/10 ML UDC FEED TUBE ×4 (09:40→21:24)
[2023-02-13] MEDS: FOLIC ACID 1 MG TABLET FEED TUBE (09:40)
[2023-02-13] MEDS: ENOXAPARIN 40 MG/0.4 ML SYRINGE SUB-Q (09:40)
[2023-02-13] MEDS: ASPIRIN 81 MG CHEWABLE TABLET FEED TUBE (09:40)
[2023-02-13] MEDS: LACOSAMIDE (*CRX) 200 MG TABLET FEED TUBE ×2 (09:40→21:21)
[2023-02-13] MEDS: METOPROLOL TARTRATE 25 MG TABLET FEED TUBE ×2 (09:40→21:20)
[2023-02-13] MEDS: THIAMINE HCL 100 MG TABLET FEED TUBE (09:41)
[2023-02-13] MEDS: levETIRAcetam 500 MG TABLET 2000 MG PO ×2 (09:41→21:21)
[2023-02-13] MEDS: LANSOPRAZOLE ORAL SUSP 30 MG/10 ML ORAL.SUSP FEED TUBE (09:45)
[2023-02-13 11:48] LABS: Glucose Point of Care 77 mg/dl (65-105)
[2023-02-13] MEDS: DIVALPROEX SODIUM SPRINKLE 125 MG CAP.DR 250 MG FEED TUBE (12:49)
--- NOTE | 2023-02-13 16:08 | PM.IMPN ---
Progress Note: A&P Assessment and Plan (1) Mucus plugging of bronchi: Code(s): T17.500A - Unspecified foreign body in bronchus causing asphyxiation, initial encounter Status: Acute (2) Diarrhea: Code(s): R19.7 - Diarrhea, unspecified Status: Acute (3) UTI (urinary tract infection) due to urinary indwelling catheter: Code(s): T83.511A - Infection and inflammatory reaction due to indwelling urethral catheter, initial encounter; N39.0 - Urinary tract infection, site not specified Status: Acute Plan Problem List 1. mucous plugging of bronchi pulmonary toileting albuterol nebulizers p.r.n. CXR impression 1. Right lung disease with volume loss, likely atelectasis from mucous plugging. Airspace opacities in left lower lung zone, likely atelectasis. Pneumonia cannot be excluded. 2. Small right pleural effusion. supplemental oxygen - 21%, flow 30 of humidified oxygen care coordination notified while patient in the ED, spoke with [facility] and they reported they were not able to take patient yet continue home inhalers/treatments: albuterol nebs, dornase brie, atr Atrovent PRN continue home supportive care - guaifenesin q.i.d. 2. diarrhea 3 episodes of diarrhea since admission awaiting Cdiff result sample sent this AM 3. UTI due to urinary indwelling catheter await UC result ceftriaxone 1 g Q24 Chronic Conditions - seizures: continue home medications - clobazam, lacosamide, keppra - COPD: continue home medications - albuterol neb Q6HRT - HLD: continue home medication - atorvastatin - constipation: held majority of home medications, continued Bisacodyl suppository p.r.n. however patient is having diarrhea. 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 Per EMS report, here for respiratory distress.? Patient is currently staying at [facility].? Staff at skilled nursing informed EMS that they do not have respiratory therapy. Pt much the same restarted on his tube feeds today Stool sent for CDiff Continue Pulmonary toileting here Pt is also being treated for UTI follow cultures in hospital Review of Systems Review of Systems: Pt has a trache All systems reviewed & are unremarkable except as noted in HPI and below Objective Data Vital Signs Vital Signs: Vital Signs - 24 hr 02/12/23 18:00 02/12/23 20:00 02/12/23 20:25 Temperature 36.7 C Pulse Rate 95 80 92 Respiratory Rate 20 18 Blood Pressure 118/62 Pulse Oximetry 100 Oxygen Delivery Oxygen Flow Rate Fraction of Inspired Oxygen 02/12/23 20:30 02/12/23 20:36 02/12/23 21:16 Temperature Pulse Rate 97 94 96 Respiratory Rate 18 18 Blood Pressure Pulse Oximetry 92 Oxygen Delivery High Flow Therapy with Tr Oxygen Flow Rate 30 Fraction of Inspired Oxygen 45 02/12/23 23:06 02/12/23 20:00 02/12/23 20:00 Temperature 36.6 C Pulse Rate 74 86 Respiratory Rate 20 Blood Pressure 117/52 L Pulse Oximetry 100 98 Oxygen Delivery High Flow Therapy with Na Oxygen Flow Rate 30 Fraction of Inspired Oxygen 45 02/12/23 22:00 02/13/23 00:00 02/13/23 00:00 Temperature Pulse Rate 90 83 Respiratory Rate Blood Pressure Pulse Oximetry 96 Oxygen Delivery High Flow Therapy with Tr Oxygen Flow Rate 30 Fraction of Inspired Oxygen 45 02/13/23 02:00 02/13/23 02:23 02/13/23 02:35 Temperature Pulse Rate 84 88 86 Respiratory Rate 18 18 Blood Pressure Pulse Oximetry Oxygen Delivery Oxygen Flow Rate Fraction of Inspired Oxygen 02/13/23 03:26 02/13/23 04:00 02/13/23 04:00 Temperature 36
[2023-02-13 16:09] LABS: Glucose Point of Care 77 mg/dl (65-105)
[2023-02-13] MEDS: DIVALPROEX SODIUM SPRINKLE 125 MG CAP.DR 750 MG FEED TUBE ×2 (19:24→23:34)
[2023-02-13] MEDS: ATORVASTATIN 40 MG TABLET FEED TUBE (21:20)
[2023-02-13 23:22] LABS: Glucose Point of Care 112 mg/dl (65-105)
[2023-02-14] VITALS (24 sets, daily range): BP systolic 107–123; BP diastolic 67–74; PULSE 72–99; RESP 16–24; TEMP 35.8–36.5; O2SAT 96–100; BMI 19.9
[2023-02-14] MEDS: IPRATROPIUM BR 0.02% INH SOLN 0.5 MG/2.5 ML VIAL INHALATION ×4 (02:06→20:14)
[2023-02-14] MEDS: ALBUTEROL SULFATE NEB 2.5 MG/3 ML INH INHALATION ×4 (02:06→20:14)
[2023-02-14] MEDS: DIVALPROEX SODIUM SPRINKLE 125 MG CAP.DR 750 MG FEED TUBE (06:34)
[2023-02-14] MEDS: DORNASE ALFA INH SOLN 1 MG/ML 2.5 ML AMP 2.5 MG INHALATION ×2 (07:54→20:14)
[2023-02-14] MEDS: SALINE LOCK FLUSH 10 ML IV PUSH ×3 (08:54→20:53)
[2023-02-14] MEDS: LANSOPRAZOLE ORAL SUSP 30 MG/10 ML ORAL.SUSP FEED TUBE (08:55)
[2023-02-14] MEDS: FOLIC ACID 1 MG TABLET FEED TUBE (08:56)
[2023-02-14] MEDS: ASPIRIN 81 MG CHEWABLE TABLET FEED TUBE (08:56)
[2023-02-14] MEDS: THIAMINE HCL 100 MG TABLET FEED TUBE (08:56)
[2023-02-14] MEDS: ENOXAPARIN 40 MG/0.4 ML SYRINGE SUB-Q (08:56)
[2023-02-14] MEDS: guaiFENesin 200 MG/10 ML UDC FEED TUBE ×4 (08:56→20:54)
[2023-02-14] MEDS: LACOSAMIDE (*CRX) 200 MG TABLET FEED TUBE ×2 (08:57→20:53)
[2023-02-14] MEDS: METOPROLOL TARTRATE 25 MG TABLET FEED TUBE ×2 (08:57→20:52)
[2023-02-14] MEDS: levETIRAcetam 500 MG TABLET 2000 MG PO ×2 (10:26→20:51)
[2023-02-14] MEDS: VALPROIC ACID LIQ 250 MG/5 ML ORAL SOLUTION UDC 750 MG PO ×2 (12:44→17:55)
[2023-02-14 14:08] LABS: Glucose Point of Care 137 mg/dl (65-105)
--- NOTE | 2023-02-14 15:50 | PM.IMPN ---
Progress Note: A&P Assessment and Plan (1) Mucus plugging of bronchi: Code(s): T17.500A - Unspecified foreign body in bronchus causing asphyxiation, initial encounter Status: Acute (2) Diarrhea: Code(s): R19.7 - Diarrhea, unspecified Status: Acute (3) UTI (urinary tract infection) due to urinary indwelling catheter: Code(s): T83.511A - Infection and inflammatory reaction due to indwelling urethral catheter, initial encounter; N39.0 - Urinary tract infection, site not specified Status: Acute Plan Problem List 1. mucous plugging of bronchi pulmonary toileting albuterol nebulizers p.r.n. CXR impression 1. Right lung disease with volume loss, likely atelectasis from mucous plugging. Airspace opacities in left lower lung zone, likely atelectasis. Pneumonia cannot be excluded. 2. Small right pleural effusion. supplemental oxygen - 21%, flow 30 of humidified oxygen care coordination notified while patient in the ED, spoke with [facility] and they reported they were not able to take patient yet continue home inhalers/treatments: albuterol nebs, dornase brie, atr Atrovent PRN continue home supportive care - guaifenesin q.i.d. 2. diarrhea 3 episodes of diarrhea since admission awaiting Cdiff result sample sent this AM 3. UTI due to urinary indwelling catheter await UC result ceftriaxone 1 g Q24 Chronic Conditions - seizures: continue home medications - clobazam, lacosamide, keppra - COPD: continue home medications - albuterol neb Q6HRT - HLD: continue home medication - atorvastatin - constipation: held majority of home medications, continued Bisacodyl suppository p.r.n. however patient is having diarrhea. 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 Per EMS report, here for respiratory distress.? Patient is currently staying at [facility].? Staff at residential informed EMS that they do not have respiratory therapy. Pt much the same restarted on his tube feeds today Stool sent for CDiff Continue Pulmonary toileting here Pt is also being treated for UTI follow cultures in hospital Pt awaiting placement Depakote sprinkles changed to valporate sodium oral Review of Systems Review of Systems: much the same Exam Const: General: comfortable and no acute distress HENMT: Face/Nose/Sinus: Normal nares present Mouth: Yes dry mucous membranes Eyes: General: appearance normal, both eyes and all related structures Sclera: sclerae normal Pupils: Equal, round and reactive pupils present Neck: Other: trach in place. No active bleeding or drainage. Resp: Effort & Inspection: normal respiratory effort Auscultation: diminished lung sounds Other: diminished on R. Cardio: Rate: regular rate Rhythm: regular rhythm GI: Auscultation: normal bowel sounds Skin: General skin exam: normal color and no rashes or lesions noted Neuro: Cranial nerves: Yes Equal, round and reactive pupils present Other: A/Ox1, some words audible. Aphasia. Awake and alert. Able to nod yes/no, not consistently appropropriate. Extrem: Other: left AKA, heel cushion in place on right, no pressure wounds noted to right foot. Objective Data Vital Signs Vital Signs: Vital Signs - 24 hr 02/13/23 16:00 02/13/23 16:00 02/13/23 16:00 Temperature 36.9 C Pulse Rate 86 76 Respiratory Rate 20 Blood Pressure 112/63 Pulse Oximetry 98 97 Oxygen Delivery High Flow Therapy with Tr Oxygen Flow Rate 30 Fraction of Inspired Oxygen 40 02/13/23 18:00 02/13/23 19:49 02/13/23 19:56 Temperature Pulse Rate 73
[2023-02-14] MEDS: cefTAZidime 1 GM/NS 50 ML 1 GM/50 ML BAG IVPB (16:32)
[2023-02-14 19:59] LABS: Glucose Point of Care 125 mg/dl (65-105)
[2023-02-14] MEDS: ATORVASTATIN 40 MG TABLET FEED TUBE (20:52)
[2023-02-15] VITALS (18 sets, daily range): BP systolic 134–144; BP diastolic 67–69; PULSE 72–90; RESP 18–99; TEMP 36.2–36.4; O2SAT 97–100
[2023-02-15] MEDS: VALPROIC ACID LIQ 250 MG/5 ML ORAL SOLUTION UDC 750 MG PO ×5 (00:44→23:42)
[2023-02-15] MEDS: cefTAZidime 1 GM/NS 50 ML 1 GM/50 ML BAG IVPB ×4 (00:44→23:42)
[2023-02-15] MEDS: ALBUTEROL SULFATE NEB 2.5 MG/3 ML INH INHALATION ×4 (02:00→20:29)
[2023-02-15] MEDS: IPRATROPIUM BR 0.02% INH SOLN 0.5 MG/2.5 ML VIAL INHALATION ×4 (02:00→20:29)
[2023-02-15 05:35] LABS: Hematocrit 33.5 % (42.0-52.0); Hemoglobin 11.1 g/dL (14.0-18.0); Mean Corpuscular HGB Conc 33.1 g/dl (32-36); Mean Corpuscular Hemoglobin 31.8 pg (26-34); Mean Platelet Volume 10.7 fl (7.4-10.4); Platelet Count Result 149 k/mm3 (150-375); Red Blood Count 3.49 M/mm3 (4.6-6.20); Red Cell Distribution Width 14.2 % (11.5-14.5); White Blood Count 6.4 K/mm3 (4.5-10.0)
[2023-02-15] MEDS: SALINE LOCK FLUSH 10 ML IV PUSH ×3 (05:35→20:24)
[2023-02-15 05:55] LABS: Anion Gap 3 mmol/L (8-16); Blood Urea Nitrogen 14 mg/dL (9-20); Calcium 8.8 mg/dL (8.4-10.2); Carbon Dioxide 33 mmol/L (22-30); Chloride 101 mmol/L (98-107); Estimated CRCL calculation 117 ml/min; Estimated Glomerular Filt Rate > 60; Glucose 111 mg/dL (65-110); Potassium 3.8 mmol/L (3.4-5.0); Sodium 137 mmol/L (137-145)
[2023-02-15] MEDS: DORNASE ALFA INH SOLN 1 MG/ML 2.5 ML AMP 2.5 MG INHALATION ×2 (08:19→20:30)
[2023-02-15] MEDS: METOPROLOL TARTRATE 25 MG TABLET FEED TUBE ×2 (09:43→20:23)
[2023-02-15] MEDS: guaiFENesin 200 MG/10 ML UDC FEED TUBE ×4 (09:43→20:23)
[2023-02-15] MEDS: LACOSAMIDE (*CRX) 200 MG TABLET FEED TUBE ×2 (09:46→20:24)
[2023-02-15] MEDS: ASPIRIN 81 MG CHEWABLE TABLET FEED TUBE (09:46)
[2023-02-15] MEDS: THIAMINE HCL 100 MG TABLET FEED TUBE (09:46)
[2023-02-15] MEDS: ENOXAPARIN 40 MG/0.4 ML SYRINGE SUB-Q (09:46)
[2023-02-15] MEDS: FOLIC ACID 1 MG TABLET FEED TUBE (09:48)
[2023-02-15] MEDS: cloBAZam (*CRX) 10 MG TABLET 20 MG PO ×2 (09:55→20:23)
[2023-02-15] MEDS: levETIRAcetam 500 MG TABLET 2000 MG PO ×2 (09:56→20:23)
[2023-02-15] MEDS: LANSOPRAZOLE ORAL SUSP 30 MG/10 ML ORAL.SUSP FEED TUBE (09:56)
--- NOTE | 2023-02-15 10:11 | PCNFU ---
Nutrition Follow-Up Complete: Swallowing impairment related to dysphagia as evidenced by need for alternative nutrition support Goal:Meet estimated need, tolerance of tube feeding Pt current nutrition is NPO, Tube feeding: Jevity 1.5 @ 50ml/hr. Nutrition recommendation: continue with current plan of care. Last recorded weight is 64.6 kg. Bowel Motility: +BM 02/14 Labs Reviewed: Hgb:11.1. HCT:33.5, Cr:0.5, Glu:111 Meds Noted: lovenox, folic acid Skin: no skin issues noted Additional Notes: Pt continues on same tube feeding of Jevity 1.5 @ 50ml/hr. This provides 1650kcals, 70g protein, 836ml free water, and is the regimen from the long-term. Pt tolerating well. Monitor tube feeding, tolerance, wt, labs. Follow up every Tuesday and Tuesday.
[2023-02-15 12:28] LABS: Glucose Point of Care 117 mg/dl (65-105)
--- NOTE | 2023-02-15 14:52 | PM.IMPN ---
Progress Note: A&P Assessment and Plan (1) Mucus plugging of bronchi: Code(s): T17.500A - Unspecified foreign body in bronchus causing asphyxiation, initial encounter Status: Acute (2) Diarrhea: Code(s): R19.7 - Diarrhea, unspecified Status: Acute (3) UTI (urinary tract infection) due to urinary indwelling catheter: Code(s): T83.511A - Infection and inflammatory reaction due to indwelling urethral catheter, initial encounter; N39.0 - Urinary tract infection, site not specified Status: Acute Plan Problem List 1. mucous plugging of bronchi pulmonary toileting albuterol nebulizers p.r.n. CXR impression 1. Right lung disease with volume loss, likely atelectasis from mucous plugging. Airspace opacities in left lower lung zone, likely atelectasis. Pneumonia cannot be excluded. 2. Small right pleural effusion. supplemental oxygen - 21%, flow 30 of humidified oxygen care coordination notified while patient in the ED, spoke with [facility] and they reported they were not able to take patient yet continue home inhalers/treatments: albuterol nebs, dornase brie, atr Atrovent PRN continue home supportive care - guaifenesin q.i.d. awaiting placement 2. diarrhea 3 episodes of diarrhea since admission awaiting Cdiff result sample sent this AM not able to find result 3. 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 Per EMS report, here for respiratory distress.? Patient is currently staying at [facility].? Staff at residential informed EMS that they do not have respiratory therapy. Pt much the same restarted on his tube feeds today Stool sent for CDiff Continue Pulmonary toileting here Pt is also being treated for UTI follow cultures in hospital Pt awaiting placement Depakote sprinkles changed to valporate sodium oral Continue present care Review of Systems Review of Systems: No specific complaints Exam Const: General: comfortable and no acute distress HENMT: Face/Nose/Sinus: Normal nares present Mouth: Yes dry mucous membranes Eyes: General: appearance normal, both eyes and all related structures Sclera: sclerae normal Pupils: Equal, round and reactive pupils present Neck: Other: trach in place. No active bleeding or drainage. Resp: Effort & Inspection: normal respiratory effort Auscultation: diminished lung sounds Other: diminished on R. Cardio: Rate: regular rate Rhythm: regular rhythm GI: Auscultation: normal bowel sounds Skin: General skin exam: normal color and no rashes or lesions noted Neuro: Cranial nerves: Yes Equal, round and reactive pupils present Other: A/Ox1, some words audible. Aphasia. Awake and alert. Able to nod yes/no, not consistently appropropriate. Extrem: Other: left AKA, heel cushion in place on right, no pressure wounds noted to right foot. Objective Data Vital Signs Vital Signs: Vital Signs - 24 hr 02/14/23 16:00 02/14/23 20:14 02/14/23 20:14 Temperature 36.0 C L Pulse Rate 87 88 88 Respiratory Rate 24 H 18 Blood Pressure 117/67 Pulse Oximetry 98 98 Oxygen Delivery High Flow Therapy with Na Oxygen Flow Rate 15 Fraction of Inspired Oxygen 02/14/23 20:52 02/14/23 20:50 02/14/23 20:00 Temperature Pulse Rate 74 99 88 Respiratory Rate 18 18 Blood Pressure Pulse Oximetry 98 Oxygen Delivery High Flow Therapy with Na Oxygen Flow Rate 15 Fraction of Inspired Oxygen 02/15/23 00:00 02/15/23 02:01 02/15/23 02:15 Temperature Pulse Rate 82 75 78 Respiratory Rate 18 18 Blood Pressure Pulse Oximetry Oxygen Delivery Ox
[2023-02-15 18:19] LABS: Glucose Point of Care 118 mg/dl (65-105)
[2023-02-15] MEDS: ATORVASTATIN 40 MG TABLET FEED TUBE (20:23)
[2023-02-16] VITALS (17 sets, daily range): BP systolic 106–133; BP diastolic 54–71; PULSE 63–88; RESP 16–20; TEMP 36.4–36.6; O2SAT 98–100
[2023-02-16 00:30] LABS: Glucose Point of Care 107 mg/dl (65-105)
[2023-02-16] MEDS: IPRATROPIUM BR 0.02% INH SOLN 0.5 MG/2.5 ML VIAL INHALATION ×4 (02:10→19:46)
[2023-02-16] MEDS: ALBUTEROL SULFATE NEB 2.5 MG/3 ML INH INHALATION ×4 (02:10→19:47)
[2023-02-16] MEDS: VALPROIC ACID LIQ 250 MG/5 ML ORAL SOLUTION UDC 750 MG PO ×4 (06:02→23:22)
[2023-02-16] MEDS: SALINE LOCK FLUSH 10 ML IV PUSH ×3 (06:02→20:14)
[2023-02-16] MEDS: DORNASE ALFA INH SOLN 1 MG/ML 2.5 ML AMP 2.5 MG INHALATION ×2 (08:39→19:47)
[2023-02-16] MEDS: LANSOPRAZOLE ORAL SUSP 30 MG/10 ML ORAL.SUSP FEED TUBE (09:41)
[2023-02-16] MEDS: cefTAZidime 1 GM/NS 50 ML 1 GM/50 ML BAG IVPB ×3 (09:41→23:22)
[2023-02-16] MEDS: ASPIRIN 81 MG CHEWABLE TABLET FEED TUBE (09:45)
[2023-02-16] MEDS: LACOSAMIDE (*CRX) 200 MG TABLET FEED TUBE ×2 (09:45→20:14)
[2023-02-16] MEDS: guaiFENesin 200 MG/10 ML UDC FEED TUBE ×4 (09:45→20:13)
[2023-02-16] MEDS: ENOXAPARIN 40 MG/0.4 ML SYRINGE SUB-Q (09:45)
[2023-02-16] MEDS: METOPROLOL TARTRATE 25 MG TABLET FEED TUBE ×2 (09:45→20:13)
[2023-02-16] MEDS: levETIRAcetam 500 MG TABLET 2000 MG PO ×2 (09:45→20:14)
[2023-02-16] MEDS: FOLIC ACID 1 MG TABLET FEED TUBE (09:46)
[2023-02-16] MEDS: THIAMINE HCL 100 MG TABLET FEED TUBE (09:46)
--- NOTE | 2023-02-16 11:36 | PM.IMPN ---
Progress Note: A&P Assessment and Plan (1) Mucus plugging of bronchi: Code(s): T17.500A - Unspecified foreign body in bronchus causing asphyxiation, initial encounter Status: Acute (2) Diarrhea: Code(s): R19.7 - Diarrhea, unspecified Status: Acute (3) UTI (urinary tract infection) due to urinary indwelling catheter: Code(s): T83.511A - Infection and inflammatory reaction due to indwelling urethral catheter, initial encounter; N39.0 - Urinary tract infection, site not specified Status: Acute Plan Problem List 1. mucous plugging of bronchi pulmonary toileting albuterol nebulizers p.r.n. CXR impression 1. Right lung disease with volume loss, likely atelectasis from mucous plugging. Airspace opacities in left lower lung zone, likely atelectasis. Pneumonia cannot be excluded. 2. Small right pleural effusion. supplemental oxygen - 21%, flow 30 of humidified oxygen care coordination notified while patient in the ED, spoke with [facility] and they reported they were not able to take patient yet continue home inhalers/treatments: albuterol nebs, dornase brie, atr Atrovent PRN continue home supportive care - guaifenesin q.i.d. awaiting placement 2. diarrhea 3 episodes of diarrhea since admission awaiting Cdiff result sample sent this AM not able to find result 3. UTI due to urinary indwelling catheter UC positive for pseudomonas pt started on iv ceftazidime Subjective Date/time seen: 02/16/23 11:36 Interval history: No new complaints Exam Const: General: comfortable and no acute distress HENMT: Face/Nose/Sinus: Normal nares present Mouth: Yes dry mucous membranes Eyes: General: appearance normal, both eyes and all related structures Sclera: sclerae normal Pupils: Equal, round and reactive pupils present Neck: Other: trach in place. No active bleeding or drainage. Resp: Effort & Inspection: normal respiratory effort Auscultation: diminished lung sounds Other: diminished on R. Cardio: Rate: regular rate Rhythm: regular rhythm GI: Auscultation: normal bowel sounds Skin: General skin exam: normal color and no rashes or lesions noted Neuro: Cranial nerves: Yes Equal, round and reactive pupils present Other: A/Ox1, some words audible. Aphasia. Awake and alert. Able to nod yes/no, not consistently appropropriate. Extrem: Other: left AKA, heel cushion in place on right, no pressure wounds noted to right foot. Objective Data Vital Signs Vital Signs: Vital Signs - 24 hr 02/15/23 13:39 02/15/23 13:43 02/15/23 13:55 Temperature Pulse Rate 74 74 78 Respiratory Rate 20 20 Blood Pressure Pulse Oximetry 98 Oxygen Delivery High Flow Therapy with Tr Oxygen Flow Rate 15 Fraction of Inspired Oxygen 02/15/23 16:00 02/15/23 20:23 02/15/23 20:42 Temperature 97.5 F L Pulse Rate 73 82 76 Respiratory Rate 18 Blood Pressure 134/67 Pulse Oximetry 100 100 Oxygen Delivery High Flow Therapy with Tr Oxygen Flow Rate 15 Fraction of Inspired Oxygen 02/15/23 20:35 02/15/23 20:47 02/15/23 20:00 Temperature Pulse Rate 76 81 79 Respiratory Rate 20 20 20 Blood Pressure Pulse Oximetry 100 Oxygen Delivery High Flow Therapy with Tr Oxygen Flow Rate 15 Fraction of Inspired Oxygen 02/16/23 00:00 02/16/23 02:12 02/16/23 02:18 Temperature 97.9 F Pulse Rate 79 68 63 Respiratory Rate 18 20 20 Blood Pressure 133/66 Pulse Oximetry 99 Oxygen Delivery Oxygen Flow Rate Fraction of Inspired Oxygen 02/16/23 08:00 02/16/23 08:40 02/16/23 08:40 Temperature 97.6 F Pulse Rate 81 72 72 Respiratory Rate 20 20 20 Blood Pressure 119/64 Pulse Oximetry 100 99 Oxygen Delivery High Flow Therapy with Tr Oxygen Flow Rate 15 Fraction of Inspired Oxygen 02/16/23 09:03 02/16/23 09:45 02/16/23 08:00 Temperature
[2023-02-16 12:37] LABS: Glucose Point of Care 105 mg/dl (65-105)
--- NOTE | 2023-02-16 16:56 | PC.NURSE ---
Attempted to remove inner canula did not tolerate, coughing with just moving the trach tubing.
[2023-02-16 18:27] LABS: Glucose Point of Care 119 mg/dl (65-105)
[2023-02-16] MEDS: cloBAZam (*CRX) 10 MG TABLET 20 MG PO (20:14)
[2023-02-16] MEDS: ATORVASTATIN 40 MG TABLET FEED TUBE (20:14)
[2023-02-16 23:56] LABS: Glucose Point of Care 105 mg/dl (65-105)
[2023-02-17] VITALS (20 sets, daily range): BP systolic 114–142; BP diastolic 58–77; PULSE 68–88; RESP 16–20; TEMP 36.2–36.8; O2SAT 96–100
[2023-02-17] MEDS: IPRATROPIUM BR 0.02% INH SOLN 0.5 MG/2.5 ML VIAL INHALATION ×4 (01:59→20:00)
[2023-02-17] MEDS: ALBUTEROL SULFATE NEB 2.5 MG/3 ML INH INHALATION ×4 (01:59→20:00)
[2023-02-17] MEDS: VALPROIC ACID LIQ 250 MG/5 ML ORAL SOLUTION UDC 750 MG PO ×3 (05:56→16:50)
[2023-02-17] MEDS: SALINE LOCK FLUSH 10 ML IV PUSH ×3 (05:57→21:44)
[2023-02-17] MEDS: DORNASE ALFA INH SOLN 1 MG/ML 2.5 ML AMP 2.5 MG INHALATION ×2 (08:06→20:01)
[2023-02-17] MEDS: guaiFENesin 200 MG/10 ML UDC FEED TUBE ×4 (09:11→21:43)
[2023-02-17] MEDS: cefTAZidime 1 GM/NS 50 ML 1 GM/50 ML BAG IVPB ×2 (09:11→16:49)
[2023-02-17] MEDS: LANSOPRAZOLE ORAL SUSP 30 MG/10 ML ORAL.SUSP FEED TUBE (09:11)
[2023-02-17] MEDS: levETIRAcetam 500 MG TABLET 2000 MG PO ×2 (09:11→20:34)
[2023-02-17] MEDS: FOLIC ACID 1 MG TABLET FEED TUBE (09:12)
[2023-02-17] MEDS: ASPIRIN 81 MG CHEWABLE TABLET FEED TUBE (09:12)
[2023-02-17] MEDS: METOPROLOL TARTRATE 25 MG TABLET FEED TUBE ×2 (09:12→21:43)
[2023-02-17] MEDS: cloBAZam (*CRX) 10 MG TABLET 20 MG PO ×2 (09:12→21:43)
[2023-02-17] MEDS: THIAMINE HCL 100 MG TABLET FEED TUBE (09:12)
[2023-02-17] MEDS: ENOXAPARIN 40 MG/0.4 ML SYRINGE SUB-Q (09:12)
[2023-02-17] MEDS: LACOSAMIDE (*CRX) 200 MG TABLET FEED TUBE ×2 (09:12→21:43)
[2023-02-17 10:59] LABS: Hematocrit 33.2 % (42.0-52.0); Hemoglobin 10.6 g/dL (14.0-18.0); Mean Corpuscular HGB Conc 31.9 g/dl (32-36); Mean Corpuscular Hemoglobin 31.4 pg (26-34); Mean Corpuscular Volume 98.2 fl (80-100); Mean Platelet Volume 11.7 fl (7.4-10.4); Platelet Count Result 121 k/mm3 (150-375); Red Blood Count 3.38 M/mm3 (4.6-6.20); Red Cell Distribution Width 14.6 % (11.5-14.5); White Blood Count 5.3 K/mm3 (4.5-10.0)
--- NOTE | 2023-02-17 11:04 | PM.IMPN ---
Progress Note: A&P Assessment and Plan (1) Mucus plugging of bronchi: Code(s): T17.500A - Unspecified foreign body in bronchus causing asphyxiation, initial encounter Status: Acute (2) Diarrhea: Code(s): R19.7 - Diarrhea, unspecified Status: Acute (3) UTI (urinary tract infection) due to urinary indwelling catheter: Code(s): T83.511A - Infection and inflammatory reaction due to indwelling urethral catheter, initial encounter; N39.0 - Urinary tract infection, site not specified Status: Acute Plan Problem List 1. mucous plugging of bronchi pulmonary toileting albuterol nebulizers p.r.n. CXR impression 1. Right lung disease with volume loss, likely atelectasis from mucous plugging. Airspace opacities in left lower lung zone, likely atelectasis. Pneumonia cannot be excluded. 2. Small right pleural effusion. Will consult Pulmonary to have them evaluate supplemental oxygen - 21%, flow 30 of humidified oxygen care coordination notified while patient in the ED, spoke with [facility] and they reported they were not able to take patient yet continue home inhalers/treatments: albuterol nebs, dornase brie, atr Atrovent PRN continue home supportive care - guaifenesin q.i.d. awaiting placement 2. diarrhea Monitor 3. UTI due to urinary indwelling catheter UC positive for pseudomonas pt started on iv ceftazidime Subjective Date/time seen: 02/17/23 11:04 Interval history: Alert, answers basic questions. Denies new complaints. Chest x-ray noted Exam Const: General: comfortable and no acute distress HENMT: Face/Nose/Sinus: Normal nares present Mouth: Yes dry mucous membranes Eyes: General: appearance normal, both eyes and all related structures Sclera: sclerae normal Pupils: Equal, round and reactive pupils present Neck: Other: trach in place. No active bleeding or drainage. Resp: Effort & Inspection: normal respiratory effort Auscultation: diminished lung sounds Other: diminished on R. Cardio: Rate: regular rate Rhythm: regular rhythm GI: Auscultation: normal bowel sounds Skin: General skin exam: normal color and no rashes or lesions noted Neuro: Cranial nerves: Yes Equal, round and reactive pupils present Other: A/Ox1, some words audible. Aphasia. Awake and alert. Able to nod yes/no, not consistently appropropriate. Extrem: Other: left AKA, heel cushion in place on right, no pressure wounds noted to right foot. Objective Data Vital Signs Vital Signs: Vital Signs - 24 hr 02/16/23 12:00 02/16/23 14:41 02/16/23 14:42 Temperature 97.8 F Pulse Rate 73 74 74 Respiratory Rate 18 20 16 Blood Pressure 110/54 L Pulse Oximetry 99 98 Oxygen Delivery High Flow Therapy with Tr Oxygen Flow Rate 15 Fraction of Inspired Oxygen 02/16/23 15:01 02/16/23 16:00 02/16/23 19:45 Temperature 97.5 F L Pulse Rate 87 88 72 Respiratory Rate 16 18 16 Blood Pressure 106/62 Pulse Oximetry 100 Oxygen Delivery Oxygen Flow Rate Fraction of Inspired Oxygen 02/16/23 19:52 02/16/23 19:57 02/16/23 20:13 Temperature Pulse Rate 72 75 82 Respiratory Rate 20 16 Blood Pressure Pulse Oximetry 99 Oxygen Delivery High Flow Therapy with Tr Oxygen Flow Rate 15 Fraction of Inspired Oxygen 02/16/23 20:00 02/16/23 20:00 02/17/23 00:00 Temperature 97.9 F Pulse Rate 81 78 73 Respiratory Rate 18 18 Blood Pressure 121/71 Pulse Oximetry 100 100 99 Oxygen Delivery High Flow Therapy with Tr Oxygen Flow Rate 15 Fraction of Inspired Oxygen 02/17/23 02:01 02/17/23 02:02 02/17/23 02:09 Temperature Pulse Rate 78 78 77 Respiratory Rate 16 20 16 Blood Pressure Pulse Oximetry 98 Oxygen Delivery High Flow Therapy with Tr Oxygen Flow Rate 15 Fraction of Inspired Oxygen 02/17/23 08:00 02/17/23 08:07 02/17/23 08:21 Temperature 98.2
[2023-02-17 11:09] LABS: Anion Gap 2 mmol/L (8-16); Blood Urea Nitrogen 12 mg/dL (9-20); Calcium 8.8 mg/dL (8.4-10.2); Carbon Dioxide 35 mmol/L (22-30); Chloride 102 mmol/L (98-107); Estimated CRCL calculation 116 ml/min; Estimated Glomerular Filt Rate > 60; Glucose 93 mg/dL (65-110); Potassium 4.4 mmol/L (3.4-5.0); Sodium 139 mmol/L (137-145)
[2023-02-17 11:59] LABS: Glucose Point of Care 112 mg/dl (65-105)
--- NOTE | 2023-02-17 12:40 | PM.CNPUL ---
Assessment and Plan Assessment and plan (1) Mucus plugging of bronchi: Code(s): T17.500A - Unspecified foreign body in bronchus causing asphyxiation, initial encounter Status: Acute (2) Atelectasis of right lung: Code(s): J98.11 - Atelectasis Status: Acute (3) Pneumonia: Qualifiers: Laterality: right Lung location: unspecified part of lung Pneumonia type: due to unspecified organism Qualified Code(s): J18.9 - Pneumonia, unspecified organism Code(s): J18.9 - Pneumonia, unspecified organism Status: Acute Assessment and Plan: 63-year-old man with chronic respiratory failure, status post permanent tracheostomy, peg tube placement, resident of a local group home was brought in with respiratory distress hypoxemia related to retention of bronchial secretions with some right lung atelectasis and new right lower lobe consolidation due to pneumonia. Patient has increased amount of bronchial secretions and has been on antibiotics along with aggressive pulmonary toilet. He has been hemodynamically stable, not looking septic. His leukocyte count is within normal range. He is growing Pseudomonas in urine culture. Also had Acinetobacter in urine last hospitalization. New sputum culture pending Plan: continue with current regimen of antibiotics, frequent suctioning, pulmonary toilet ,DVT prophylaxis. Will follow along with you. MRSA screening. (4) Tracheostomy in place: Code(s): Z93.0 - Tracheostomy status Status: Acute (5) History of multiple strokes: Code(s): Z86.73 - Personal history of transient ischemic attack (TIA), and cerebral infarction without residual deficits Status: Acute (6) Chronic respiratory failure with hypoxia: Code(s): J96.11 - Chronic respiratory failure with hypoxia Status: Acute History of Present Illness History of Present Illness Consult date: 02/17/23 Chief complaint: Mucus Plug Narrative: This 63-year-old man was brought into the emergency room because of respiratory distress. The patient has a history of a CVA with aphasia, respiratory failure status post permanent tracheostomy, and also history of COPD. Patient lives in a group home. Reportedly was found to have chest congestion respiratory distress along with a low oxyhemoglobin desaturation. Patient was brought into the emergency room following suctioning by EMS. Post suctioning his O2 saturation went back up to 90% range. Workup with a chest x-rays and chest CT showed small pleural effusion on right lung atelectasis and also new infiltrate in right lower lobe which is new since early last month when a chest x-ray showed clear lungs. The patient is currently on aggressive pulmonary toilet schedule with suctioning, nebulized short-acting bronchodilators, antibiotics, and mucolytic agents. Patient does not look septic. Answering very simple questions. Review of Systems Review of Systems: All systems reviewed & are unremarkable except as noted in HPI and below (HPI and below) [facility] Past Medical History Medical History COPD (chronic obstructive pulmonary disease) Dysphagia Esophageal diverticulum Expressive aphasia Gastroparesis History of BPH History of multiple strokes Iron deficiency anemia Seizure disorder Vascular dementia with psychotic disturbance Surgical History Surgical History Gastrostomy tube in place History of left above knee amputation Tracheostomy in place Family History Family History Other Unknown family medical history Social History Social History Social History: Code status: Full code Surrogate decision maker: Sister Smoking status: Unknown if ever smoked Alcohol intake: never Substance
[2023-02-17 18:39] LABS: Glucose Point of Care 101 mg/dl (65-105)
[2023-02-17] MEDS: ATORVASTATIN 40 MG TABLET FEED TUBE (21:43)
[2023-02-18] VITALS (20 sets, daily range): BP systolic 101–124; BP diastolic 56–71; PULSE 68–96; RESP 18–20; TEMP 36.4–36.9; O2SAT 93–99
[2023-02-18 00:25] LABS: Glucose Point of Care 97 mg/dl (65-105)
[2023-02-18] MEDS: VALPROIC ACID LIQ 250 MG/5 ML ORAL SOLUTION UDC 750 MG PO ×4 (01:51→18:22)
[2023-02-18] MEDS: cefTAZidime 1 GM/NS 50 ML 1 GM/50 ML BAG IVPB ×3 (01:51→18:22)
[2023-02-18] MEDS: ALBUTEROL SULFATE NEB 2.5 MG/3 ML INH INHALATION ×4 (02:21→20:51)
[2023-02-18] MEDS: IPRATROPIUM BR 0.02% INH SOLN 0.5 MG/2.5 ML VIAL INHALATION ×4 (02:21→20:51)
[2023-02-18] MEDS: SALINE LOCK FLUSH 10 ML IV PUSH ×3 (05:53→21:46)
[2023-02-18] MEDS: DORNASE ALFA INH SOLN 1 MG/ML 2.5 ML AMP 2.5 MG INHALATION ×2 (07:52→20:51)
[2023-02-18] MEDS: ENOXAPARIN 40 MG/0.4 ML SYRINGE SUB-Q (09:56)
[2023-02-18] MEDS: ASPIRIN 81 MG CHEWABLE TABLET FEED TUBE (09:56)
[2023-02-18] MEDS: THIAMINE HCL 100 MG TABLET FEED TUBE (09:56)
[2023-02-18] MEDS: LANSOPRAZOLE ORAL SUSP 30 MG/10 ML ORAL.SUSP FEED TUBE (09:56)
[2023-02-18] MEDS: guaiFENesin 200 MG/10 ML UDC FEED TUBE ×4 (09:56→21:45)
[2023-02-18] MEDS: cloBAZam (*CRX) 10 MG TABLET 20 MG PO ×2 (09:56→21:45)
[2023-02-18] MEDS: FOLIC ACID 1 MG TABLET FEED TUBE (09:57)
[2023-02-18] MEDS: LACOSAMIDE (*CRX) 200 MG TABLET FEED TUBE ×2 (09:57→21:45)
[2023-02-18] MEDS: levETIRAcetam 500 MG TABLET 2000 MG PO ×2 (09:57→21:45)
[2023-02-18] MEDS: METOPROLOL TARTRATE 25 MG TABLET FEED TUBE ×2 (09:57→21:45)
--- NOTE | 2023-02-18 09:58 | PM.PNPUL ---
Progress Note: A&P Assessment and Plan (1) Atelectasis of right lung: Code(s): J98.11 - Atelectasis Status: Acute (2) Pneumonia: Qualifiers: Laterality: right Lung location: unspecified part of lung Pneumonia type: due to unspecified organism Qualified Code(s): J18.9 - Pneumonia, unspecified organism Code(s): J18.9 - Pneumonia, unspecified organism Status: Acute Assessment and Plan: 63-year-old man with chronic respiratory failure, status post permanent tracheostomy, peg tube placement, resident of a local skilled nursing was brought in with respiratory distress hypoxemia related to retention of bronchial secretions with some right lung atelectasis and new right lower lobe consolidation due to pneumonia.? Patient has increased amount of bronchial secretions and has been on antibiotics along with aggressive pulmonary toilet.? He has been hemodynamically stable, not looking septic.? His leukocyte count is within normal range.? He is growing Pseudomonas in urine culture.? Also had? Acinetobacter in urine last hospitalization.? New sputum culture pending Plan: continue with current regimen of antibiotics, frequent suctioning, pulmonary toilet ,DVT prophylaxis.? MRSA screening pending. CXR in am. (3) Tracheostomy in place: Code(s): Z93.0 - Tracheostomy status Status: Acute (4) Chronic respiratory failure with hypoxia: Code(s): J96.11 - Chronic respiratory failure with hypoxia Status: Acute Subjective Date/time seen: 02/18/23 09:58 Interval history: Patient hemodynamically stable, less chest congestion. On lower FiO2 Review of Systems Review of Systems: All systems reviewed & are unremarkable except as noted in HPI and below (HPI and below) Exam Narrative: GENERAL APPEARANCE: Well developed, well nourished, awake middle-age man with permanent tracheostomy. Appears in mild respiratory distress HEENT: Sclerae anicteric and conjunctivae pink and moist. Extraocular movements were intact and pupils were equal. NECK: Supple. There was no thyroid enlargement, and no tenderness, or masses were felt. LUNGS: Rhonchi right upper chest anteriorly decreased breath sounds right lateral chest, clear left lung anteriorly CARDIAC: There was a regular rate and rhythm without any murmurs, gallops, rubs. ABDOMEN: Soft and nontender with normal bowel sounds. There was no organomegaly. LYMPH NODES: No lymphadenopathy was appreciated in the neck EXTREMITIES: Left above knee amputation NEUROLOGIC: Appears awake, flaccid upper extremities Objective Data Vital Signs Vital Signs: Vital Signs - 24 hr 02/17/23 11:59 02/17/23 14:14 02/17/23 14:28 Temperature 36.3 C L Pulse Rate 70 68 76 Respiratory Rate 16 16 16 Blood Pressure 123/61 Pulse Oximetry 98 Oxygen Delivery Oxygen Flow Rate Fraction of Inspired Oxygen 02/17/23 16:00 02/17/23 19:27 02/17/23 20:04 Temperature 36.2 C L 36.8 C Pulse Rate 79 72 74 Respiratory Rate 20 16 20 Blood Pressure 122/75 117/58 L Pulse Oximetry 99 100 Oxygen Delivery Oxygen Flow Rate Fraction of Inspired Oxygen 02/17/23 20:05 02/17/23 20:00 02/17/23 20:28 Temperature Pulse Rate 74 74 76 Respiratory Rate 20 20 18 Blood Pressure Pulse Oximetry 98 98 Oxygen Delivery High Flow Therapy with Tr High Flow Therapy with Tr Oxygen Flow Rate 15 15 Fraction of Inspired Oxygen 28 02/17/23 23:08 02/18/23 00:57 02/18/23 02:26 Temperature 36.7 C Pulse Rate 68 75 80 Respiratory Rate 18 18 18 Blood Pressure 119/59 L Pulse Oximetry 100 98 Oxygen Delivery High Flow Therapy with Tr Oxygen Flow Rate 15 Fraction of Inspired Oxygen 02/18/23 03:49 02/18/23 07:52 02/18/23 07:55 Temperature 36.7 C Pulse Rate 75 79 79 Respiratory Rate 18 18 18 Blood Pressure 124/69 Pulse Oximetry 99 98 Oxygen Delivery High Flow Therapy with Tr Oxygen Flow Rate 15 Fraction of Inspired Oxy
--- NOTE | 2023-02-18 11:54 | PM.IMPN ---
Progress Note: A&P Assessment and Plan (1) Mucus plugging of bronchi: Code(s): T17.500A - Unspecified foreign body in bronchus causing asphyxiation, initial encounter Status: Acute (2) Diarrhea: Code(s): R19.7 - Diarrhea, unspecified Status: Acute (3) UTI (urinary tract infection) due to urinary indwelling catheter: Code(s): T83.511A - Infection and inflammatory reaction due to indwelling urethral catheter, initial encounter; N39.0 - Urinary tract infection, site not specified Status: Acute Plan Problem List 1. mucous plugging of bronchi pulmonary toileting albuterol nebulizers p.r.n. CXR impression 1. Right lung disease with volume loss, likely atelectasis from mucous plugging. Airspace opacities in left lower lung zone, likely atelectasis. Pneumonia cannot be excluded. 2. Small right pleural effusion. Will consult Pulmonary to have them evaluate supplemental oxygen - 21%, flow 30 of humidified oxygen care coordination notified while patient in the ED, spoke with [facility] and they reported they were not able to take patient yet continue home inhalers/treatments: albuterol nebs, dornase brie, atr Atrovent PRN continue home supportive care - guaifenesin q.i.d. awaiting placement 2. diarrhea Monitor 3. UTI due to urinary indwelling catheter UC positive for pseudomonas pt started on iv ceftazidime Subjective Date/time seen: 02/18/23 11:54 Interval history: No new complaints Exam Const: General: comfortable and no acute distress HENMT: Face/Nose/Sinus: Normal nares present Mouth: Yes dry mucous membranes Eyes: General: appearance normal, both eyes and all related structures Sclera: sclerae normal Pupils: Equal, round and reactive pupils present Neck: Other: trach in place. No active bleeding or drainage. Resp: Effort & Inspection: normal respiratory effort Auscultation: diminished lung sounds Other: diminished on R. Cardio: Rate: regular rate Rhythm: regular rhythm GI: Auscultation: normal bowel sounds Skin: General skin exam: normal color and no rashes or lesions noted Neuro: Cranial nerves: Yes Equal, round and reactive pupils present Other: A/Ox1, some words audible. Aphasia. Awake and alert. Able to nod yes/no, not consistently appropropriate. Extrem: Other: left AKA, heel cushion in place on right, no pressure wounds noted to right foot. Objective Data Vital Signs Vital Signs: Vital Signs - 24 hr 02/17/23 11:59 02/17/23 14:14 02/17/23 14:28 Temperature 97.4 F L Pulse Rate 70 68 76 Respiratory Rate 16 16 16 Blood Pressure 123/61 Pulse Oximetry 98 Oxygen Delivery Oxygen Flow Rate Fraction of Inspired Oxygen 02/17/23 16:00 02/17/23 19:27 02/17/23 20:04 Temperature 97.1 F L 98.2 F Pulse Rate 79 72 74 Respiratory Rate 20 16 20 Blood Pressure 122/75 117/58 L Pulse Oximetry 99 100 Oxygen Delivery Oxygen Flow Rate Fraction of Inspired Oxygen 02/17/23 20:05 02/17/23 20:00 02/17/23 20:28 Temperature Pulse Rate 74 74 76 Respiratory Rate 20 20 18 Blood Pressure Pulse Oximetry 98 98 Oxygen Delivery High Flow Therapy with Tr High Flow Therapy with Tr Oxygen Flow Rate 15 15 Fraction of Inspired Oxygen 02/17/23 23:08 02/18/23 00:57 02/18/23 02:26 Temperature 98.1 F Pulse Rate 68 75 80 Respiratory Rate 18 18 18 Blood Pressure 119/59 L Pulse Oximetry 100 98 Oxygen Delivery High Flow Therapy with Tr Oxygen Flow Rate 15 Fraction of Inspired Oxygen 02/18/23 03:49 02/18/23 07:52 02/18/23 07:55 Temperature 98.1 F Pulse Rate 75 79 79 Respiratory Rate 18 18 18 Blood Pressure 124/69 Pulse Oximetry 99 98 Oxygen Delivery High Flow Therapy with Tr Oxygen Flow Rate 15 Fraction of Inspired Oxygen 02/18/23 08:05 02/18/23 08:00 02/18/23 09:57 Temperature 97.9 F Pulse Rate 77 68 7
[2023-02-18 12:01] LABS: Glucose Point of Care 101 mg/dl (65-105)
--- NOTE | 2023-02-18 14:03 | PCNFU ---
Nutrition Follow-Up Complete: Swallowing impairment related to dysphagia as evidenced by need for alternative nutrition support Meet estimated need, tolerance of tube feeding - Goal is being met. Continue with same goal Goal: Pt current nutrition is Jevity 1,5 @ 50 ml/h: 1650 kcal, 70 g protein, 836 ml free water. Flush 30 ml free water q 4 hours. Nutrition recommendation: Continue same tube feeding orders with no changes Last recorded weight is 64.2 kg. Down 0.8 kg from 65 kg at admission Bowel Motility: Last BM 02/16/23 Labs Reviewed: Hgb 10.6, Hct 33.2, Cre 0.5 Meds Noted: Lovenox, folic acid Skin: No pressure related skin breakdown Additional Notes: Pt continues on tube feeding Jevity 1,5 @ 50 ml/h, which is same order from [facility]. Tolerating well, having bowel movements.To return to [place] at discharge. Monitor tube feeding, tolerance, wt, labs. Follow up every Tuesday and Tuesday.
[2023-02-18 18:36] LABS: Glucose Point of Care 110 mg/dl (65-105)
[2023-02-18] MEDS: ATORVASTATIN 40 MG TABLET FEED TUBE (21:45)
[2023-02-18 23:44] LABS: Glucose Point of Care 110 mg/dl (65-105)
[2023-02-19] VITALS (10 sets, daily range): BP systolic 99–113; BP diastolic 57–67; PULSE 82–102; RESP 16–24; TEMP 36.9–37.6; O2SAT 92–100
[2023-02-19] MEDS: VALPROIC ACID LIQ 250 MG/5 ML ORAL SOLUTION UDC 750 MG PO ×5 (00:58→23:33)
[2023-02-19] MEDS: cefTAZidime 1 GM/NS 50 ML 1 GM/50 ML BAG IVPB ×4 (00:58→23:33)
[2023-02-19] MEDS: ALBUTEROL SULFATE NEB 2.5 MG/3 ML INH INHALATION ×4 (03:20→21:58)
[2023-02-19] MEDS: IPRATROPIUM BR 0.02% INH SOLN 0.5 MG/2.5 ML VIAL INHALATION ×4 (03:20→21:45)
[2023-02-19] MEDS: SALINE LOCK FLUSH 10 ML IV PUSH ×3 (06:46→21:18)
[2023-02-19] MEDS: DORNASE ALFA INH SOLN 1 MG/ML 2.5 ML AMP 2.5 MG INHALATION ×2 (07:21→21:50)
[2023-02-19 10:17] LABS: Basophils Percent Auto 0.3 % (0.2-1.2); Eosinophils Absolute Auto 0.4 K/mm3 (0-0.3); Eosinophils Percent Auto 6.3 % (0-4.4); Hematocrit 35.4 % (42.0-52.0); Hemoglobin 11.3 g/dL (14.0-18.0); Immature Granulocyte Absolute 0.01 K/mm3 (0.00-0.031); Immature Granulocyte Percent A 0.1 % (0-0.5); Lymphocytes Absolute Auto 2.76 K/mm3 (0.9-3.2); Lymphocytes Percent Auto 39.3 % (18.3-44.2); Mean Corpuscular HGB Conc 31.9 g/dl (32-36); Mean Corpuscular Hemoglobin 31.1 pg (26-34); Mean Corpuscular Volume 97.5 fl (80-100); Monocytes Absolute Auto 0.5 K/mm3 (0.1-0.6); Monocytes Percent Auto 7.5 % (2.6-8.5); Neutrophils Absolute Auto 3.3 K/mm3 (1.3-6.7); Neutrophils Percent Auto 46.5 % (45.5-73.1); Platelet Count Result 128 k/mm3 (150-375); Red Blood Count 3.63 M/mm3 (4.6-6.20); Red Cell Distribution Width 14.7 % (11.5-14.5)
[2023-02-19] MEDS: ASPIRIN 81 MG CHEWABLE TABLET FEED TUBE (10:25)
[2023-02-19] MEDS: ENOXAPARIN 40 MG/0.4 ML SYRINGE SUB-Q (10:25)
[2023-02-19] MEDS: cloBAZam (*CRX) 10 MG TABLET 20 MG PO ×2 (10:25→21:18)
[2023-02-19] MEDS: levETIRAcetam 500 MG TABLET 2000 MG PO ×2 (10:25→21:17)
[2023-02-19] MEDS: FOLIC ACID 1 MG TABLET FEED TUBE (10:25)
[2023-02-19 10:26] LABS: Anion Gap 6 mmol/L (8-16); Blood Urea Nitrogen 14 mg/dL (9-20); Calcium 8.9 mg/dL (8.4-10.2); Carbon Dioxide 30 mmol/L (22-30); Chloride 103 mmol/L (98-107); Estimated CRCL calculation 116 ml/min; Estimated Glomerular Filt Rate > 60; Glucose 109 mg/dL (65-110); Potassium 4.4 mmol/L (3.4-5.0); Sodium 139 mmol/L (137-145)
[2023-02-19] MEDS: METOPROLOL TARTRATE 25 MG TABLET FEED TUBE ×2 (10:26→21:18)
[2023-02-19] MEDS: LANSOPRAZOLE ORAL SUSP 30 MG/10 ML ORAL.SUSP FEED TUBE (10:26)
[2023-02-19] MEDS: LACOSAMIDE (*CRX) 200 MG TABLET FEED TUBE ×2 (10:26→21:18)
[2023-02-19] MEDS: THIAMINE HCL 100 MG TABLET FEED TUBE (10:26)
[2023-02-19] MEDS: guaiFENesin 200 MG/10 ML UDC FEED TUBE ×4 (10:27→21:18)
[2023-02-19 11:26] LABS: Glucose Point of Care 104 mg/dl (65-105)
--- NOTE | 2023-02-19 11:45 | PM.IMPN ---
Progress Note: A&P Assessment and Plan (1) Mucus plugging of bronchi: Code(s): T17.500A - Unspecified foreign body in bronchus causing asphyxiation, initial encounter Status: Acute (2) Diarrhea: Code(s): R19.7 - Diarrhea, unspecified Status: Acute (3) UTI (urinary tract infection) due to urinary indwelling catheter: Code(s): T83.511A - Infection and inflammatory reaction due to indwelling urethral catheter, initial encounter; N39.0 - Urinary tract infection, site not specified Status: Acute Plan Problem List 1. mucous plugging of bronchi pulmonary toileting albuterol nebulizers p.r.n. CXR looks worse however poor technique. Will repeat chest x-ray. supplemental oxygen as needed continue home inhalers/treatments: albuterol nebs, dornase brie, atr Atrovent PRN continue home supportive care - guaifenesin q.i.d. awaiting placement Continue antibiotics Sputum culture and nasal culture noted. clinically doing better 2. diarrhea Monitor 3. UTI due to urinary indwelling catheter UC positive for pseudomonas pt started on iv ceftazidime Subjective Date/time seen: 02/19/23 11:45 Interval history: no complaints Exam Const: General: comfortable and no acute distress HENMT: Face/Nose/Sinus: Normal nares present Mouth: Yes dry mucous membranes Eyes: General: appearance normal, both eyes and all related structures Sclera: sclerae normal Pupils: Equal, round and reactive pupils present Neck: Other: trach in place. No active bleeding or drainage. Resp: Effort & Inspection: normal respiratory effort Auscultation: diminished lung sounds Other: diminished on R. Cardio: Rate: regular rate Rhythm: regular rhythm GI: Auscultation: normal bowel sounds Skin: General skin exam: normal color and no rashes or lesions noted Neuro: Cranial nerves: Yes Equal, round and reactive pupils present Other: A/Ox1, some words audible. Aphasia. Awake and alert. Able to nod yes/no, not consistently appropropriate. Extrem: Other: left AKA, heel cushion in place on right, no pressure wounds noted to right foot. Objective Data Vital Signs Vital Signs: Vital Signs - 24 hr 02/18/23 12:47 02/18/23 13:31 02/18/23 13:32 Temperature 98.0 F Pulse Rate 74 76 76 Respiratory Rate 20 18 18 Blood Pressure 101/56 L Pulse Oximetry 98 98 Oxygen Delivery High Flow Therapy with Tr Oxygen Flow Rate 15 Fraction of Inspired Oxygen 02/18/23 13:41 02/18/23 12:00 02/18/23 16:00 Temperature Pulse Rate 79 73 92 Respiratory Rate 18 Blood Pressure Pulse Oximetry Oxygen Delivery Oxygen Flow Rate Fraction of Inspired Oxygen 02/18/23 16:00 02/18/23 20:59 02/18/23 20:55 Temperature 98.4 F Pulse Rate 96 87 87 Respiratory Rate 20 18 18 Blood Pressure 107/63 Pulse Oximetry 93 93 Oxygen Delivery High Flow Therapy with Tr Oxygen Flow Rate 15 Fraction of Inspired Oxygen 02/18/23 20:00 02/18/23 21:45 02/18/23 23:17 Temperature 97.5 F L Pulse Rate 87 96 87 Respiratory Rate 18 20 Blood Pressure 116/60 Pulse Oximetry 93 97 Oxygen Delivery High Flow Therapy with Tr Oxygen Flow Rate 15 Fraction of Inspired Oxygen 02/19/23 03:23 02/18/23 21:18 02/19/23 07:24 Temperature Pulse Rate 85 90 82 Respiratory Rate 18 18 18 Blood Pressure Pulse Oximetry Oxygen Delivery Oxygen Flow Rate Fraction of Inspired Oxygen 02/19/23 07:24 02/19/23 07:44 02/19/23 08:00 Temperature 98.4 F Pulse Rate 96 102 H Respiratory Rate 18 24 H Blood Pressure 99/57 L Pulse Oximetry 100 92 Oxygen Delivery High Flow Therapy with Tr Oxygen Flow Rate 15 Fraction of Inspired Oxygen 32 02/19/23 10:26 Temperature Pulse Rate 102 H Respiratory Rate Blood Pressure Pulse Oximetry Oxygen Delivery Oxygen Flow Rate Fraction of Inspired Oxygen
[2023-02-19 18:44] LABS: Glucose Point of Care 115 mg/dl (65-105)
[2023-02-19] MEDS: ATORVASTATIN 40 MG TABLET FEED TUBE (21:17)
[2023-02-19 23:44] LABS: Glucose Point of Care 109 mg/dl (65-105)
[2023-02-20] VITALS (16 sets, daily range): BP systolic 102–132; BP diastolic 58–66; PULSE 73–89; RESP 14–20; TEMP 36.4–36.8; O2SAT 95–99
[2023-02-20] MEDS: ALBUTEROL SULFATE NEB 2.5 MG/3 ML INH INHALATION ×4 (02:37→20:03)
[2023-02-20] MEDS: IPRATROPIUM BR 0.02% INH SOLN 0.5 MG/2.5 ML VIAL INHALATION ×4 (02:37→20:03)
[2023-02-20] MEDS: SALINE LOCK FLUSH 10 ML IV PUSH ×3 (05:24→21:40)
[2023-02-20] MEDS: VALPROIC ACID LIQ 250 MG/5 ML ORAL SOLUTION UDC 750 MG PO ×4 (05:24→23:48)
[2023-02-20] MEDS: SALINE LOCK FLUSH 20 ML IV PUSH (05:24)
[2023-02-20 05:42] LABS: Basophils Percent Auto 0.3 % (0.2-1.2); Eosinophils Absolute Auto 0.4 K/mm3 (0-0.3); Eosinophils Percent Auto 4.7 % (0-4.4); Hematocrit 35.1 % (42.0-52.0); Hemoglobin 11.3 g/dL (14.0-18.0); Immature Granulocyte Absolute 0.02 K/mm3 (0.00-0.031); Immature Granulocyte Percent A 0.3 % (0-0.5); Lymphocytes Absolute Auto 2.34 K/mm3 (0.9-3.2); Lymphocytes Percent Auto 30.7 % (18.3-44.2); Mean Corpuscular HGB Conc 32.2 g/dl (32-36); Mean Corpuscular Hemoglobin 31.7 pg (26-34); Mean Corpuscular Volume 98.6 fl (80-100); Mean Platelet Volume 11.7 fl (7.4-10.4); Monocytes Absolute Auto 0.4 K/mm3 (0.1-0.6); Monocytes Percent Auto 5.5 % (2.6-8.5); Neutrophils Absolute Auto 4.5 K/mm3 (1.3-6.7); Neutrophils Percent Auto 58.5 % (45.5-73.1); Platelet Count Result 121 k/mm3 (150-375); Red Blood Count 3.56 M/mm3 (4.6-6.20); Red Cell Distribution Width 14.8 % (11.5-14.5); White Blood Count 7.6 K/mm3 (4.5-10.0)
[2023-02-20 05:44] LABS: Anion Gap 5 mmol/L (8-16); Blood Urea Nitrogen 13 mg/dL (9-20); Calcium 8.9 mg/dL (8.4-10.2); Carbon Dioxide 31 mmol/L (22-30); Chloride 103 mmol/L (98-107); Estimated CRCL calculation 110 ml/min; Estimated Glomerular Filt Rate > 60; Glucose 113 mg/dL (65-110); Potassium 4.2 mmol/L (3.4-5.0); Sodium 139 mmol/L (137-145)
[2023-02-20 06:20] LABS: Glucose Point of Care 110 mg/dl (65-105)
[2023-02-20] MEDS: DORNASE ALFA INH SOLN 1 MG/ML 2.5 ML AMP 2.5 MG INHALATION ×2 (08:15→20:05)
[2023-02-20] MEDS: ENOXAPARIN 40 MG/0.4 ML SYRINGE SUB-Q (08:53)
[2023-02-20] MEDS: cefTAZidime 1 GM/NS 50 ML 1 GM/50 ML BAG IVPB ×3 (08:53→23:47)
--- NOTE | 2023-02-20 11:10 | PM.IMPN ---
Progress Note: A&P Assessment and Plan (1) Mucus plugging of bronchi: Code(s): T17.500A - Unspecified foreign body in bronchus causing asphyxiation, initial encounter Status: Acute (2) Diarrhea: Code(s): R19.7 - Diarrhea, unspecified Status: Acute (3) UTI (urinary tract infection) due to urinary indwelling catheter: Code(s): T83.511A - Infection and inflammatory reaction due to indwelling urethral catheter, initial encounter; N39.0 - Urinary tract infection, site not specified Status: Acute Plan Problem List 1. mucous plugging of bronchi pulmonary toileting albuterol nebulizers p.r.n. CXR looks worse however poor technique. Will repeat chest x-ray. supplemental oxygen as needed continue home inhalers/treatments: albuterol nebs, dornase brie, atr Atrovent PRN continue home supportive care - guaifenesin q.i.d. awaiting placement Continue antibiotics Sputum culture and nasal culture noted. clinically doing better 2. diarrhea Monitor 3. UTI due to urinary indwelling catheter UC positive for pseudomonas pt started on iv ceftazidime Subjective Date/time seen: 02/20/23 11:10 Interval history: no new complaints Exam Const: General: comfortable and no acute distress HENMT: Face/Nose/Sinus: Normal nares present Mouth: Yes dry mucous membranes Eyes: General: appearance normal, both eyes and all related structures Sclera: sclerae normal Pupils: Equal, round and reactive pupils present Neck: Other: trach in place. No active bleeding or drainage. Resp: Effort & Inspection: normal respiratory effort Auscultation: diminished lung sounds Other: diminished on R. Cardio: Rate: regular rate Rhythm: regular rhythm GI: Auscultation: normal bowel sounds Skin: General skin exam: normal color and no rashes or lesions noted Neuro: Cranial nerves: Yes Equal, round and reactive pupils present Other: A/Ox1, some words audible. Aphasia. Awake and alert. Able to nod yes/no, not consistently appropropriate. Extrem: Other: left AKA, heel cushion in place on right, no pressure wounds noted to right foot. Objective Data Vital Signs Vital Signs: Vital Signs - 24 hr 02/19/23 13:08 02/19/23 13:20 02/19/23 13:58 Temperature 98.5 F Pulse Rate 87 82 84 Respiratory Rate 18 18 24 H Blood Pressure 101/60 Pulse Oximetry 97 Oxygen Delivery Oxygen Flow Rate Fraction of Inspired Oxygen 02/19/23 20:25 02/19/23 21:18 02/20/23 00:00 Temperature 99.6 F 97.5 F L Pulse Rate 88 88 84 Respiratory Rate 16 20 Blood Pressure 113/67 132/66 Pulse Oximetry 95 99 Oxygen Delivery Oxygen Flow Rate Fraction of Inspired Oxygen 02/20/23 02:37 02/20/23 02:46 02/20/23 03:45 Temperature 97.6 F Pulse Rate 83 86 88 Respiratory Rate 20 20 20 Blood Pressure 112/62 Pulse Oximetry 97 Oxygen Delivery Oxygen Flow Rate Fraction of Inspired Oxygen 02/20/23 08:15 02/20/23 08:23 02/20/23 08:39 Temperature Pulse Rate 83 83 82 Respiratory Rate 18 18 18 Blood Pressure Pulse Oximetry 95 Oxygen Delivery High Flow Therapy with Tr Oxygen Flow Rate 15 Fraction of Inspired Oxygen 29 Intake/Output Intake/Output: Intake & Output 02/17/23 02/18/23 02/19/23 02/20/23 23:59 23:59 23:59 23:59 Intake Total 1591 1080 150 50 Output Total 1100 1450 1150 600 Balance [phone] -[phone] -[phone] Meds/Results Medications: Active Medications Generic Name Dose Route Start Last Admin Trade Name Freq PRN Reason Stop Dose Admin Albuterol 2.5 mg 02/12/23 02:00 02/20/23 08:15 Albuterol Sulfate Neb 2.5 Mg/3 Ml Inh INHALATION 2.5 mg Q6HRT TERRELL Administration Aspirin 81 mg 02/12/23 09:00 02/19/23 10:25 Aspirin 81 Mg Chewable Tablet FEED TUBE 81 mg DAILY TERRELL Administration Atorvastatin Calcium 40 mg 02/12/23 21:00 02/19/23 21:17 Atorvastatin 40 Mg Tablet FE
[2023-02-20] MEDS: ASPIRIN 81 MG CHEWABLE TABLET FEED TUBE (11:43)
[2023-02-20] MEDS: cloBAZam (*CRX) 10 MG TABLET PO (11:43)
[2023-02-20] MEDS: LACOSAMIDE (*CRX) 200 MG TABLET FEED TUBE ×2 (11:44→21:39)
[2023-02-20] MEDS: guaiFENesin 200 MG/10 ML UDC FEED TUBE ×3 (11:44→21:39)
[2023-02-20] MEDS: LANSOPRAZOLE ORAL SUSP 30 MG/10 ML ORAL.SUSP FEED TUBE (11:44)
[2023-02-20] MEDS: METOPROLOL TARTRATE 25 MG TABLET FEED TUBE ×2 (11:44→21:38)
[2023-02-20] MEDS: FOLIC ACID 1 MG TABLET FEED TUBE (11:44)
[2023-02-20] MEDS: LIPASE/AMYLASE/PROTEASE 12,000 UNITS CAP 1 CAP XX ×2 (11:45→14:30)
[2023-02-20] MEDS: THIAMINE HCL 100 MG TABLET FEED TUBE (11:45)
[2023-02-20] MEDS: levETIRAcetam 500 MG TABLET 2000 MG XX ×2 (11:45→21:39)
--- NOTE | 2023-02-20 13:03 | WPDGICN ---
Assessment and Plan Assessment and plan (1) Malfunction of gastrostomy tube: Code(s): K94.23 - Gastrostomy malfunction Status: Acute Assessment and Plan: I tried for several minutes to flush J-tube (water, then soda). Then try to reposition bumper and adjust tube but still did not make a difference. I talked to nurse and will try pancreatic enzymes in tube to see if will make a difference we do not carry g-j tube in our institution, in the meantime ok to use G-portion may need to transfer him back to [facility] where his g-j tube has been exchanged in the past (2) Atelectasis of right lung: Code(s): J98.11 - Atelectasis Status: Acute Assessment and Plan: on treatment (3) Seizure disorder: Code(s): G40.909 - Epilepsy, unspecified, not intractable, without status epilepticus Status: Acute (4) UTI (urinary tract infection) due to urinary indwelling catheter: Code(s): T83.511A - Infection and inflammatory reaction due to indwelling urethral catheter, initial encounter; N39.0 - Urinary tract infection, site not specified Status: Acute Assessment and Plan: on abx (5) Aphasia: Code(s): R47.01 - Aphasia Status: Acute GI Consult Note Consult date/time: 02/20/23 13:03 Reason for consult: malfunctioning G-J tube HPI: Bi Tabor is a 63 year old male who is [facility] resident with seizures/CVA who requires surgical assistant certified, he is almost non verbal status and currently has tracheostomy with previous hospitalization with atelectasis and pneumonia, he also has G-J tube that normally has been taken care at [facility].?He was admitted her few days ago with more respiratory distress than usual and found to have atelectasias, he is seeing by pulmonary. Today staff nurse midwife noted that J tube portion was clogged and could not flush anything. Review of Systems Review of Systems: ROS unobtainable: Yes unobtainable due to medical condition and unobtainable due to mental status PMFSH Past Medical History Medical History (Updated 02/20/23 @ 13:08 by Reggie Marc MD) Aphasia COPD (chronic obstructive pulmonary disease) Dysphagia Esophageal diverticulum Expressive aphasia Gastroparesis History of BPH History of multiple strokes Iron deficiency anemia Malfunction of gastrostomy tube Seizure disorder Vascular dementia with psychotic disturbance Surgical History Surgical History Gastrostomy tube in place History of left above knee amputation Tracheostomy in place Family History Family History Other Unknown family medical history Social History Social History Social History: Code status: Full code Surrogate decision maker: Sister Smoking status: Unknown if ever smoked Alcohol intake: never Substance use: never Substance use type: does not use Spiritual care concerns: No Meds Home Medications and Allergies Home Medications Medication Instructions Recorded Confirmed Type atorvastatin 40 mg tablet 40 mg feeding tube QHS 11/14/22 02/11/23 History clobazam 20 mg tablet 20 mg feeding tube Q12H 11/14/22 02/11/23 History folic acid 1 mg tablet 1 mg feeding tube DAILY 11/14/22 02/11/23 History lacosamide 200 mg tablet 200 mg feeding tube Q12H 11/14/22 02/11/23 History aspirin 81 mg chewable tablet 81 mg feeding tube DAILY 11/15/22 02/11/23 History enoxaparin 40 mg/0.4 mL 40 mg subcut DAILY 11/15/22 02/11/23 History subcutaneous syringe levetiracetam 1,000 mg tablet 2,000 mg PO Q12H 11/15/22 02/11/23 History metoprolol tartrate 25 mg tablet 25 mg feeding tube Q12H 12/18/22 02/11/23 History polyethylene glycol 3350 17 17 g feeding tube DAILY 12/18/22 02/11/23 History gram/dose oral powder bisacodyl 10 mg rectal suppository 10 mg RECTAL DA
[2023-02-20 18:49] LABS: Glucose Point of Care 104 mg/dl (65-105)
[2023-02-20] MEDS: ACETAMINOPHEN ELIXIR 325 MG/10.15 ML UDC 650 MG PO (21:37)
[2023-02-20] MEDS: cloBAZam (*CRX) 10 MG TABLET 20 MG PO (21:39)
[2023-02-20] MEDS: ATORVASTATIN 40 MG TABLET FEED TUBE (21:40)
[2023-02-20] MEDS: TOLNAFTATE 1% POWDER 45 GM BTL 1 APPLIC TOPICAL (21:40)
[2023-02-20 23:58] LABS: Glucose Point of Care 114 mg/dl (65-105)
[2023-02-21] VITALS (11 sets, daily range): BP systolic 113–130; BP diastolic 58–67; PULSE 70–84; RESP 16–18; TEMP 35.9–36.5; O2SAT 94–100
[2023-02-21] MEDS: ALBUTEROL SULFATE NEB 2.5 MG/3 ML INH INHALATION ×3 (01:21→14:22)
[2023-02-21] MEDS: IPRATROPIUM BR 0.02% INH SOLN 0.5 MG/2.5 ML VIAL INHALATION ×3 (01:21→14:22)
[2023-02-21] MEDS: VALPROIC ACID LIQ 250 MG/5 ML ORAL SOLUTION UDC 750 MG PO ×3 (05:24→17:10)
[2023-02-21] MEDS: SALINE LOCK FLUSH 10 ML IV PUSH ×2 (05:24→12:27)
[2023-02-21 05:35] LABS: Glucose Point of Care 117 mg/dl (65-105)
[2023-02-21] MEDS: DORNASE ALFA INH SOLN 1 MG/ML 2.5 ML AMP 2.5 MG INHALATION (08:22)
[2023-02-21] MEDS: cloBAZam (*CRX) 10 MG TABLET PO (08:58)
[2023-02-21] MEDS: THIAMINE HCL 100 MG TABLET FEED TUBE (08:59)
[2023-02-21] MEDS: FOLIC ACID 1 MG TABLET FEED TUBE (08:59)
[2023-02-21] MEDS: LACOSAMIDE (*CRX) 200 MG TABLET FEED TUBE (08:59)
[2023-02-21] MEDS: levETIRAcetam 500 MG TABLET 2000 MG PO (09:00)
[2023-02-21] MEDS: ASPIRIN 81 MG CHEWABLE TABLET FEED TUBE (09:00)
[2023-02-21] MEDS: METOPROLOL TARTRATE 25 MG TABLET FEED TUBE (09:00)
[2023-02-21] MEDS: ENOXAPARIN 40 MG/0.4 ML SYRINGE SUB-Q (09:01)
[2023-02-21] MEDS: cefTAZidime 1 GM/NS 50 ML 1 GM/50 ML BAG IVPB (09:01)
[2023-02-21] MEDS: guaiFENesin 200 MG/10 ML UDC FEED TUBE (09:01)
[2023-02-21] MEDS: LANSOPRAZOLE ORAL SUSP 30 MG/10 ML ORAL.SUSP FEED TUBE (09:04)
[2023-02-21] MEDS: TOLNAFTATE 1% POWDER 45 GM BTL 1 APPLIC TOPICAL (09:05)
[2023-02-21] MEDS: levETIRAcetam 500 MG TABLET 2000 MG XX (09:05)
--- NOTE | 2023-02-21 10:48 | PM.PNPUL ---
Progress Note: A&P Assessment and Plan (1) Atelectasis of right lung: Code(s): J98.11 - Atelectasis Status: Acute Assessment and Plan: patient with a history of CVA, dementia, tracheostomy and PEG tube, can follow simple commands and answer simple questions. Presented to [facility] on 11/14/2022 with shortness of breath, hypoxemia and increased green secretions from his tracheostomy and has a right lower lobe collapse. ? I have no prior imaging to determine if the right lower lobe collapse is an acute, recurrent or chronic problem.? Covid, influenza and RSV RT PCR studies negative. Patient with a history of Pseudomonas and Acinetobacter in his sputum from 12/19/2022 and Pseudomonas on 11/15/2022 I had previously seen patient on 11/15/2022 for RLL collaps. Etiology of the right lower lobe collapse includes pneumonia, mucus plugging, aspiration of foreign body and or cancer. On 11/17/22 ?from a pulmonary perspective he is ready to be discharged on these pulmonary medications: ?Levaquin? 750 mg per tube q.day and cefdinir 300 mg per tube b.i.d. to complete a total of 10 days antibiotics. ?albuterol 2.5 mg nebulized and ipratropium 0.5 mg nebulized q.i.d. Vibratory vest therapy and chest PT QID ?tracheal suctioning q.2 hours throughout the day and night ?guaifenesin 400 mg per tube t.i.d. Patient brought to the emergency department on 02/11/2023 for respiratory distress and hypoxemia. He receives suctioning by EMS and suctioning in the ER and his oxygenation improved. Chest x-ray with right lower lobe collapse and shift of the mediastinum to the right. Patient treated for urinary tract infection, pneumonia and mucus plugging with ceftriaxone from 02/12, cefepime from 02/14 to current, bronchodilators, dornase, guaifenesin. Patient had Pseudomonas in his urine and Pseudomonas in his sputum this admission. 02/21/23: Patient is afebrile. White blood cell count yesterday was 7.6, currently is on 28% FiO2 with 15 L flow with saturations 99%. Chest x-ray today shows improved but persistent right lower lobe collapse, small right pleural effusion and minimal left interstitial infiltrates. Plan: Patient has chronic tracheostomy and recurrent right lower lobe collapse with or without pneumonia now. He has a previous history of Pseudomonas and Acinetobacter in his sputum and currently has Pseudomonas in his sputum. He received 2 days of ceftriaxone and currently has received 8 days of ceftazidime. He is afebrile and has no leukocytosis and I would discontinue ceftazidime today. From a pulmonary perspective patient is ready to be discharged on these pulmonary medications: Albuterol 2.5 mg nebulized and ipratropium 0.5 mg nebulized q.i.d. Vibratory vest therapy and chest PT QID ?tracheal suctioning q.2 hours throughout the day and night ?guaifenesin 600 mg per tube q.i.d. Humidified oxygen per facilities protocol to maintain saturation 90-94%. If he requires no oxygen he should have humidified room air. Discussed with Dr. Allison, will sign off, call with questions (2) Pneumonia: Qualifiers: Laterality: right Lung location: unspecified part of lung Pneumonia type: due to unspecified organism Qualified Code(s): J18.9 - Pneumonia, unspecified organism Code(s): J18.9 - Pneumonia, unspecified organism Status: Acute Assessment and Plan: 63-year-old man with chronic respiratory failure, status post permanent tracheostomy, peg tube placement, resident of a local [facility] was brought in with respiratory distress hypoxemia related to retention of bronchial secretions with some right lung atelectasis and new right lower lobe consolidation due to pneumonia.? Patient has increased amount of bronchial secretions and has been on antibiotics along with aggressive pulmonary toilet.? He has been hemodynamically stable, not looking septic.? His leukocyte count is within normal range.? He is growing Pseudomonas in urine
--- NOTE | 2023-02-21 11:32 | PC.NURSE ---
Physical assessment by Student Nurse Riky Noe/[facility] reviewed. Agree with same. Any procedures, care or medications that were given by student nurse were completed under direct supervision of this instructor or assigned staff nurse
[2023-02-21 11:56] LABS: Glucose Point of Care 110 mg/dl (65-105)
[2023-02-21] MEDS: guaiFENesin 200 MG/10 ML UDC 600 MG FEED TUBE ×2 (12:27→17:10)
--- NOTE | 2023-02-21 14:40 | WPDGIPROGNO ---
Progress Note: A&P Assessment and Plan (1) Malfunction of gastrostomy tube: Code(s): K94.23 - Gastrostomy malfunction Status: Acute Assessment and Plan: g portion is working and using for tube feeding and medication he will need to go to [facility] to have g-j tube exchange (we do not have equipment here) (2) Aphasia: Code(s): R47.01 - Aphasia Status: Acute Assessment and Plan: requiring total care (3) Seizure disorder: Code(s): G40.909 - Epilepsy, unspecified, not intractable, without status epilepticus Status: Acute (4) UTI (urinary tract infection) due to urinary indwelling catheter: Code(s): T83.511A - Infection and inflammatory reaction due to indwelling urethral catheter, initial encounter; N39.0 - Urinary tract infection, site not specified Status: Acute (5) Atelectasis of right lung: Code(s): J98.11 - Atelectasis Status: Acute Assessment and Plan: by pulmonary Subjective Date/time seen: 02/21/23 14:40 Interval history: J portion clogged, using G port for feeding and he has been tolerating without problem he seems comfortable lying in bed Review of Systems Review of Systems: All systems reviewed & are unremarkable except as noted in HPI and below Exam Const: General: no acute distress Other: unable to provide history HENMT: Face/Nose/Sinus: Normal nares present Mouth: Yes dry mucous membranes Eyes: General: appearance normal, both eyes and all related structures Sclera: sclerae normal Neck: Other: trach in place. No active bleeding or drainage. Resp: Auscultation: diminished lung sounds Other: diminished on R. Cardio: Rate: regular rate Rhythm: regular rhythm GI: GI Palp: Yes Soft to palpation and No Guarding due to palpation present (GI) Auscultation: normal bowel sounds Other: G-J tube in position, site looks ok unable to flush J tube (G portion is flushing ok) Skin: General skin exam: normal color Neuro: Cranial nerves: Yes Equal, round and reactive pupils present Other: A/Ox1, some words audible. Aphasia. Awake and alert. Extrem: Other: left AKA, heel cushion in place on right Psych: Other: unable to assess Objective Data Vital Signs Vital Signs: Vital Signs - 24 hr 02/20/23 20:07 02/20/23 20:08 02/20/23 20:42 Temperature 98.3 F Pulse Rate 80 80 89 Respiratory Rate 18 18 14 Blood Pressure 102/62 Pulse Oximetry 97 97 Oxygen Delivery High Flow Therapy with Tr Oxygen Flow Rate 15 Fraction of Inspired Oxygen 02/20/23 21:38 02/21/23 01:24 02/20/23 20:30 Temperature Pulse Rate 89 83 76 Respiratory Rate 18 18 Blood Pressure Pulse Oximetry Oxygen Delivery Oxygen Flow Rate Fraction of Inspired Oxygen 02/21/23 01:30 02/21/23 01:35 02/21/23 06:04 Temperature 97.7 F Pulse Rate 84 82 74 Respiratory Rate 18 18 16 Blood Pressure 113/58 L Pulse Oximetry 96 99 Oxygen Delivery High Flow Therapy with Tr Oxygen Flow Rate 15 Fraction of Inspired Oxygen 02/21/23 08:00 02/21/23 08:22 02/21/23 08:22 Temperature 96.6 F L Pulse Rate 70 73 Respiratory Rate 16 18 Blood Pressure 118/64 Pulse Oximetry 100 98 Oxygen Delivery High Flow Therapy with Tr Oxygen Flow Rate 15 Fraction of Inspired Oxygen 02/21/23 08:47 02/21/23 09:00 02/21/23 14:23 Temperature Pulse Rate 76 70 80 Respiratory Rate 18 18 Blood Pressure Pulse Oximetry 94 Oxygen Delivery High Flow Therapy with Tr Oxygen Flow Rate 15 Fraction of Inspired Oxygen 02/21/23 14:23 02/21/23 14:00 Temperature 97.5 F L Pulse Rate 80 78 Respiratory Rate 16 16 Blood Pressure 130/67 Pulse Oximetry 100 Oxygen Delivery Oxygen Flow Rate Fraction of Inspired Oxygen Intake/Output Intake/Output: Intake & Output 02/18/23 02/19/23 02/20/23 02/21/23 23:59 23:59 23:59 23:59
--- NOTE | 2023-02-21 15:49 | PM.DS ---
DS: Admitting Diagnosis Discharge Date 02/21/23 Admitting Diagnosis uti, ? asp pna DS: Discharge Diagnosis Discharge Diagnosis (1) Mucus plugging of bronchi: Code(s): T17.500A - Unspecified foreign body in bronchus causing asphyxiation, initial encounter Status: Acute (2) Diarrhea: Code(s): R19.7 - Diarrhea, unspecified Status: Acute (3) UTI (urinary tract infection) due to urinary indwelling catheter: Code(s): T83.511A - Infection and inflammatory reaction due to indwelling urethral catheter, initial encounter; N39.0 - Urinary tract infection, site not specified Status: Acute Plan Problem List 1. mucous plugging of bronchi pulmonary toileting albuterol nebulizers p.r.n. CXR looks worse however poor technique. Will repeat chest x-ray. supplemental oxygen as needed continue home inhalers/treatments: albuterol nebs, dornase brie, atr Atrovent PRN continue home supportive care - guaifenesin q.i.d. awaiting placement Continue antibiotics Sputum culture and nasal culture noted. clinically doing better 2. diarrhea Monitor 3. UTI due to urinary indwelling catheter UC positive for pseudomonas pt started on iv ceftazidime DS: Summary Hospital Course Hospital Course: 63 yo male w hx of multiple cva, seizure, bed bound and non verbal. Came in with ? sepsis and found to have UTI, likely underlying chronic pna - treated w ceftazidine for uti with psa. Doing well now , labs are stable and he is at baseline. He can be discharged back to facility. GJ tube is malfunctioning currently and we were able to set him up with GJ tube evaluation at [facility] on 02/[facility]. Appreciate new recs w nebs and aggressive pulmonary toilet by pulmonary. Hopefully this will help with recurrent admissions for aspiration pna. Time Spent with Patient Time attestation: Total time spent providing and/or coordinating discharge services: Exam Const: General: comfortable and no acute distress HENMT: Face/Nose/Sinus: Normal nares present Mouth: Yes dry mucous membranes Eyes: General: appearance normal, both eyes and all related structures Sclera: sclerae normal Pupils: Equal, round and reactive pupils present Neck: Other: trach in place. No active bleeding or drainage. Resp: Effort & Inspection: normal respiratory effort Auscultation: diminished lung sounds Other: diminished on R. Cardio: Rate: regular rate Rhythm: regular rhythm GI: Auscultation: normal bowel sounds Skin: General skin exam: normal color and no rashes or lesions noted Neuro: Cranial nerves: Yes Equal, round and reactive pupils present Other: A/Ox1, some words audible. Aphasia. Awake and alert. Able to nod yes/no, not consistently appropropriate. Extrem: Other: left AKA, heel cushion in place on right, no pressure wounds noted to right foot. DS: Data Data Completed and Pending Labs on day of discharge: Labs from last 24 hours 02/21/23 02/21/23 02/20/23 11:49 05:25 23:53 POC Capillary Glucose 110 H 117 H 114 H 02/20/23 18:36 POC Capillary Glucose 104 Discharge Plan Discharge Attending physician on discharge: Chai Allison Consulting providers: Jayy Austin; Reggie Marc Discharging Clinician: Chai Allison Patient Disposition: SNF Activity: as tolerated Diet: tube feeding Patient Instructions: Enoxaparin (By injection), Tracheostomy Care (DC), Pain Management (DC), Jensen Catheter Placement and Care (DC) Stand Alone Forms: General Discharge Information Discharge Medications: New clobazam 10 mg tablet 15 mg PO DAILY Qty: 45 0RF ipratropium-albuterol 0.5 mg-3 mg(2.5 mg base)/3 mL solution for nebulization 3 ml inhalation QID PRN (Reason: shortness of breath) Qty: 180 0RF Continued magnesium hydroxide [Milk of Magnesia] 400 mg/5 mL Suspension 30 ml feeding tube HS PRN (Reason
== END 2023-02-21 18:22 | DRG 143 ==
LOC: ANHED 13:17 → ANH3MEDSUR 15:33 → ANHIMU 19:51 → ANH2MED 02-19 12:51
PROVIDERS: Family Medicine; Hospitalist; Student in an Organized Health Care Education/Training Program; Admitting Provider Internal Medicine; Emergency Provider Preventive Medicine Aerospace Medicine; PCP Internal Medicine; Visit Provider Chiropractor
DX: T17.990A Other foreign object in respiratory tract, part unspecified in causing asphyxiation, initial encounter (principal); J18.9 Pneumonia, unspecified organism; J96.11 Chronic respiratory failure with hypoxia; F01.52 Vascular dementia, unspecified severity, with psychotic disturbance; T83.511A Infection and inflammatory reaction due to indwelling urethral catheter, initial encounter; J44.0 Chronic obstructive pulmonary disease with (acute) lower respiratory infection; Z89.612 Acquired absence of left leg above knee; K94.23 Gastrostomy malfunction; R19.7 Diarrhea, unspecified; I69.391 Dysphagia following cerebral infarction; R13.10 Dysphagia, unspecified; B96.5 Pseudomonas (aeruginosa) (mallei) (pseudomallei) as the cause of diseases classified elsewhere; N39.0 Urinary tract infection, site not specified; G40.909 Epilepsy, unspecified, not intractable, without status epilepticus; D50.8 Other iron deficiency anemias; I69.320 Aphasia following cerebral infarction; E78.5 Hyperlipidemia, unspecified; K59.00 Constipation, unspecified; R00.0 Tachycardia, unspecified; J98.11 Atelectasis
CPT/HCPCS: 36415; 71045; 71250; 80048; 80053; 81001; 82948; 85025; 85027; 85055; 87040; 87070; 87077; 87081; 87086; 87088; 87186; 87205; 93005; 94640; 96365; 96372; 96376; 99285; A4629; A9270; G0378; G0379; J0696; J0713; J1650; J1953

== ENCOUNTER 2023-03-21 09:21 | Inpatient (IN) | payer OTHER, SELFPAY ==
[2023-03-21] VITALS (49 sets, daily range): BP systolic 106–143; BP diastolic 72–89; PULSE 84–151; RESP 20–35; TEMP 36.2–37.4; O2SAT 86–97; BMI 20.7
--- NOTE | ~2023-03-21 | XR_ITS ---
XR chest 1V portable DATE: 03/26/2023 09:38 INDICATION: Right lung atelectasis TECHNIQUE: Portable AP chest views on 03/18/2023 at 0934 0935 hours COMPARISON: 03/25/2023 portable AP chest at 0533 hours FINDINGS: Tracheostomy tube is noted. No central lines. There is considerable interval improvement of right lung atelectasis, especially at the upper lobe. T here is return of heart and mediastinum to midline. There is infiltrate or atelectasis in both lower lung zones, right greater than left. There is pulmonary vascular and interstitial prominence suggesting congestive changes. Aortic arch calcification. Diffuse osteopenia. IMPRESSION: Improvement of right lung atelectasis and resolution of rightward shift of heart and medi astinum since 03/25/2023 Residual right lower lung infiltrate or atelectasis and left lower lung infiltrate or atelectasis are still present. Congestive changes Tracheostomy tube in satisfactory position Reviewed, dictated and finalized at location A. IMPRESSION: Improvement of right lung atelectasis and resolution of rightward s hift of heart and mediastinum since 03/25/2023 Residual right lower lung infiltrate or atelectasis and left lower lung infiltr ate or atelectasis are still present. Congestive changes Tracheostomy tube in satisfactory position
--- NOTE | ~2023-03-21 | XR_ITS ---
Portable chest x-ray Comparison: 03/21/2023 Clinical History: Atelectasis Findings: Tracheostomy cannula place. There is persistent complete atelectasis of the right lung wit h cut off of the right mainstem bronchus and rightward mediastinal shift. Left lung is clear. Cardiom ediastinal silhouette is stable. Bones and soft tissues are unremarkable. Impression: Stable complete right lung atelectasis. Reviewed, dictated and finalized at location M. Impression: Stable complete right lung atelectasis.
--- NOTE | ~2023-03-21 | XR_ITS ---
Portable chest x-ray Comparison: 02/21/2023 Clinical History: Cough Findings: Tracheostomy catheter present. There is near complete whiteout of the right hemithorax, wi th rightward mediastinal shift. Left lung is clear. Cardiomediastinal silhouette is stable. Bones an d soft tissues are unremarkable. Impression: Near complete right lung atelectasis, likely due to mucous plugging. Underlying pneumonia cannot be c ompletely excluded. Tracheostomy cannula in place. Reviewed, dictated and finalized at location M. Impression: Near complete right lung atelectasis, likely due to mucous plugging. Underlying pneumonia cannot be completely excluded. Tracheostomy cannula in place.
--- NOTE | ~2023-03-21 | XR_ITS ---
XR chest 1V portable 03/23/2023 14:12 Indication: Post bronchoscopy Procedure: AP portable chest Comparison: Comparison to multiple prior studies sequentially, with oldest reviewed study dated 02/19. Findings: Diffuse bilateral airspace disease. There is right pleural effusion. There is improved pneu matization of the right lung compared with prior examination. Tracheostomy tube present. No pneumotho rax. Impression: 1: Diffuse bilateral airspace disease which may represent edema or pneumonia. 2: Right pleural effusion. Reviewed, dictated and finalized at location B. Impression: 1: Diffuse bilateral airspace disease which may represent edema or pneumonia. 2: Right pleural effusion.
--- NOTE | ~2023-03-21 | XR_ITS ---
EXAMINATION: XR chest 1V portable DATE: 03/24/2023 11:03 INDICATION: Decreased lung sounds. TECHNIQUE: A single frontal view of the chest was obtained. COMPARISON: Chest single view 03/23/2023, chest CT 03/22/2023 FINDINGS: There is volume loss of right hemithorax with interval improvement. There are small pleural effusions. There are airspace opacities in right lung with a perihilar and basilar predominance. The re are airspace opacities at left lung base. No pneumothorax. The heart size is normal. There is a tr acheostomy tube in expected position. IMPRESSION: 1. Airspace opacities in right lung and left lower lung zone with interval improvement and improved r ight lung volume loss, consistent with atelectasis versus pneumonia. 2. Stable small pleural effusions. Reviewed, dictated and finalized at location E. IMPRESSION: 1. Airspace opacities in right lung and left lower lung zone with interval impr ovement and improved right lung volume loss, consistent with atelectasis versus pneumonia. 2. Stable small pleural effusions.
--- NOTE | ~2023-03-21 | XR_ITS ---
EXAMINATION: XR chest 1V portable DATE: 03/25/2023 05:45 INDICATION: Pneumonia. TECHNIQUE: A single frontal view of the chest was obtained. COMPARISON: Chest single view 03/24/2023 FINDINGS: There is worsened volume loss of right hemithorax. There are airspace opacities throughout right lung and in left lower lung zone. There are small pleural effusions. No pneumothorax. The heart size is obscured. A tracheostomy tube is noted. IMPRESSION: 1. Worsened right lung volume loss and worsened right lung airspace opacities, consistent with mucous plugging and atelectasis without or with pneumonia. 2. Stable airspace opacities in left lower lung zone, consistent with atelectasis versus pneumonia. 3. Stable small pleural effusions. Reviewed, dictated and finalized at location [facility]. IMPRESSION: 1. Worsened right lung volume loss and worsened right lung airspace opacities, consistent with mucous plugging and atelectasis without or with pneumonia. 2. Stable airspace opacities in left lower lung zone, consistent with atelectas is versus pneumonia. 3. Stable small pleural effusions.
--- NOTE | ~2023-03-21 | XR_ITS ---
EXAMINATION: XR chest 1V portable DATE: 03/28/2023 06:09 INDICATION: Atelectasis. TECHNIQUE: A single frontal view of the chest was obtained. COMPARISON: Chest single view 03/26/2023 FINDINGS: There is volume loss of right hemithorax. There are airspace opacities in the lower lung zo krysta. There is a small right pleural effusion. No pneumothorax. The heart size is normal. There is a t racheostomy tube in expected position. IMPRESSION: 1. Right lung volume loss and appears airspace opacities in the lower lung zones, consistent with ate lectasis versus pneumonia. 2. Improved small right pleural effusion. Reviewed, dictated and finalized at location E. IMPRESSION: 1. Right lung volume loss and appears airspace opacities in the lower lung zone s, consistent with atelectasis versus pneumonia. 2. Improved small right pleural effusion.
--- NOTE | ~2023-03-21 | CT_ITS ---
CT Scan of the Chest without Contrast: Clinical Indication: Pneumonia, atelectasis Technique: Contiguous sections were acquired throughout the chest without intravenous contrast. Dose reduction technique was used on this scan by utilizing automated exposure control and iterative recon struction technique. The dose-length product (DLP) was 177.65 mGy-cm. COMPARISON: 02/17/2023 Findings: Tracheostomy cannula present. There is no evidence of any significant mediastinal, hilar or axillary lymphadenopathy. No aortic ane urysm. There is rightward mediastinal shift. There is complete right lung atelectasis, with opacification the right mainstem bronchus by presumed fluid, debris, or mucous plugging. Left lung is hyperexpanded but clear. Images through the upper abd omen reveal no abnormalities. Impression: Complete right lung atelectasis, with opacification of the right mainstem bronchus by presumed fluid/ debris/mucous plugging. Reviewed, dictated and finalized at [facility]. Impression: Complete right lung atelectasis, with opacification of the right mainstem bronc hus by presumed fluid/debris/mucous plugging.
--- NOTE | 2023-03-21 10:01 | ED.GENADULT ---
HPI - General Adult General Chief complaint: Recheck/Abnormal Lab/Rx Stated complaint: LOW 02 History of Present Illness HPI narrative: Bi Tabor is a 63 y/o male who presents from a NH, per report pt was noted to have a low O2 saturation, he was then suctioned , pt is a trach pt / bed bound and his saturation improved. He arrives non verbal, he follows simple commands, makes eye contact when spoken to. Currently sating 97% on RA> RR even unlabored. Related Data Home Medications Medication Instructions Recorded Confirmed atorvastatin 40 mg tablet 40 mg feeding tube QHS 11/14/22 03/21/23 folic acid 1 mg tablet 1 mg feeding tube DAILY 11/14/22 03/21/23 lacosamide 200 mg tablet 200 mg feeding tube Q12H 11/14/22 03/21/23 aspirin 81 mg chewable tablet 81 mg feeding tube DAILY 11/15/22 03/21/23 metoprolol tartrate 25 mg tablet 25 mg feeding tube Q12H 12/18/22 03/21/23 polyethylene glycol 3350 17 17 g feeding tube BID 12/18/22 03/21/23 gram/dose oral powder bisacodyl 10 mg rectal suppository 10 mg RECTAL DAILY PRN Constipation 02/11/23 03/21/23 magnesium citrate (Citroma oral 296 ml feeding tube DAILY PRN 02/11/23 03/21/23 solution) Constipation magnesium hydroxide 400 mg/5 mL 30 ml feeding tube HS PRN 02/11/23 03/21/23 oral suspension (Milk of Magnesia) Constipation sennosides 8.6 mg tablet (senna) 8.6 mg feeding tube HS PRN 02/11/23 03/21/23 Constipation sodium phosphates 19 gram-7 197 ml RECTAL ONCE 02/11/23 03/21/23 gram/118 mL enema (Fleet Enema) thiamine HCl (vitamin B1) 100 mg 100 mg feeding tube DAILY 02/11/23 03/21/23 tablet acetaminophen 650 mg tablet 650 mg PO Q6H PRN Pain 03/21/23 03/21/23 calcium carbonate 500 mg/5 mL 1,250 mg PO Q6H PRN gerd 03/21/23 03/21/23 calcium (1,250 mg/5 mL) oral suspension clobazam 10 mg tablet 15 mg feeding tube BID 03/21/23 03/21/23 famotidine 20 mg tablet 20 mg feeding tube BID 03/21/23 03/21/23 levetiracetam 100 mg/mL oral 2,000 mg PO BID 03/21/23 03/21/23 solution (Keppra) midazolam 5 mg/spray (0.1 mL) 5 mg intranasal ONCE PRN Seizures 03/21/23 03/21/23 nasal spray (Nayzilam) omeprazole 20 mg tablet,delayed 20 mg PO DAILY 03/21/23 03/21/23 release peg [id number] 1 1 drp EACH EYE 4-6XD PRN Dry Eyes 03/21/23 03/21/23 %-0.2 %-0.2 % eye drops (Artificial Tears ([id number])) valproic acid (as sodium salt) 250 500 mg PO QID 03/21/23 03/21/23 mg/5 mL oral solution Allergies Allergy/AdvReac Type Severity Reaction Status Date / Time clonazepam Allergy Unknown Verified 03/21/23 09:43 Review of Systems Review of Systems: Patient is non verbal / trached He follows simple commands/ RR even unlabored/ sating 97% on RA> lung sound diminished concern for URI/ pneumonia/ bronchitis/ ROS unobtainable: Yes unobtainable due to medical condition [facility] Past Medical History Medical History (Updated 03/21/23 @ 19:42 by Delfina Lucero APRN) Aphasia COPD (chronic obstructive pulmonary disease) Dysphagia Esophageal diverticulum Expressive aphasia Gastroparesis Gastrostomy tube dependent History of BPH History of multiple strokes Hyponatremia Iron deficiency anemia Malfunction of gastrostomy tube Seizure disorder Vascular dementia with psychotic disturbance Surgical History Surgical History Gastrostomy tube in place History of left above knee amputation Tracheostomy in place Family History Family History Other Unknown family medical history Social History Social History Social History: Code status: Full code Surrogate decision maker: Sister Smoking status: Unknown if ever smoked Alcohol intake: unknown Substance use: unknown Substance use type: does not use Spiritual care concerns: No Exam Narrative: G
[2023-03-21 10:44] LABS: Influenza A QL RT-PCR Negative (Negative); Influenza B QL RT-PCR Negative (Negative); RSV RNA, RT-PCR Negative (Negative); SARS-CoV-2 RNA PCR Negative (Negative)
[2023-03-21 11:42] LABS: Alveolar/Arterial O2 Gradient 258.2 mmHg; Base Excess ABG 2.3 mEq/l (+/-2.0); Fractional Inspired Oxygen 50 %; HCO3 ABG 25.9 mEq/l (22.0-26.0); Oxygen Content ABG 17.7 %vol (16.0-22.0); Oxygen Saturation ABG 91.3 % (95.0-100.0); PCO2 ABG 36.9 mmHg (35.0-45.0); PO2 ABG 56.8 mmHg (80.0-100.0); PO2 FiO2 Ratio Arterial Blood 1.14 %; Total Hemoglobin 14.4 g/dL (12.0-18.0); pH ABG 7.464 (7.350-7.450)
[2023-03-21 11:44] LABS: Oxyhemoglobin 87.6 % THb (90.0-100.0)
[2023-03-21 11:45] LABS: Device HIGH FLOW THERAPY; Site Drawn LEFT BRACHIAL
[2023-03-21 11:53] LABS: Alanine Aminotransferase 9 U/L (6-50); Albumin Level 3.7 g/dL (3.5-5.1); Alkaline Phosphatase 93 U/L (38-126); Anion Gap 8 mmol/L (8-16); Aspartate Amino Transferase 23 U/L (17-59); Bilirubin,Total 0.7 mg/dL (0.2-1.3); Blood Urea Nitrogen 12 mg/dL (9-20); Calcium 9.6 mg/dL (8.4-10.2); Carbon Dioxide 23 mmol/L (22-30); Chloride 99 mmol/L (98-107); Estimated CRCL calculation 115 ml/min; Estimated Glomerular Filt Rate > 60; Glucose 94 mg/dL (65-110); Potassium 4.9 mmol/L (3.4-5.0); Sodium 130 mmol/L (137-145)
--- NOTE | 2023-03-21 11:56 | PCRCNOTE ---
1050 set Pt. up on the Airvo HFT w/trach set up and suctioned. Pt. has a size 6.0 Bivona Portex TTS with the cuff deflated. Suctioned a large amount of thick white sputum.
[2023-03-21 12:00] LABS: Basophils Percent Auto 0.3 % (0.2-1.2); Eosinophils Absolute Auto 0.2 K/mm3 (0-0.3); Eosinophils Percent Auto 1.9 % (0-4.4); Hematocrit 41.4 % (42.0-52.0); Hemoglobin 13.5 g/dL (14.0-18.0); Immature Granulocyte Absolute 0.03 K/mm3 (0.00-0.031); Immature Granulocyte Percent A 0.3 % (0-0.5); Immature Platelet Fraction Pct 15.7 % (0.9-11.2); Lymphocytes Absolute Auto 3.09 K/mm3 (0.9-3.2); Lymphocytes Percent Auto 31.1 % (18.3-44.2); Mean Corpuscular HGB Conc 32.6 g/dl (32-36); Mean Corpuscular Hemoglobin 31.3 pg (26-34); Mean Corpuscular Volume 95.8 fl (80-100); Mean Platelet Volume 13.2 fl (7.4-10.4); Monocytes Absolute Auto 1.3 K/mm3 (0.1-0.6); Monocytes Percent Auto 12.9 % (2.6-8.5); Neutrophils Absolute Auto 5.3 K/mm3 (1.3-6.7); Neutrophils Percent Auto 53.5 % (45.5-73.1); Platelet Count Result 113 k/mm3 (150-375); Red Blood Count 4.32 M/mm3 (4.6-6.20); Red Cell Distribution Width 14.3 % (11.5-14.5); White Blood Count 9.9 K/mm3 (4.5-10.0)
--- NOTE | 2023-03-21 14:07 | PM.IMHP ---
H&P: HPI History of Present Illness Date/Time: 03/21/23 14:07 Chief Complaint: Difficulty breathing with desaturations Narrative: This is a 63-year-old male patient with tracheostomy and G-tube residing at local half-way facility who presented via EMS with low O2 saturations and difficulty breathing. Patient found to have whiteout right lung suspected to be due to mucus plugging. Patient has a history of similar presentation. He was treated earlier in the month conservatively with percussive therapy and mucolytics with improvement. Patient does appear awake and is able to follow some simple commands. He is aphasic unable to speak for the additional information regarding HPI and ROS. Review of Systems Review of Systems: ROS unobtainable: Yes unobtainable due to medical condition PMFSH Past Medical History Medical History (Updated 03/21/23 @ 17:58 by Rickie Tay APRN) Aphasia COPD (chronic obstructive pulmonary disease) Dysphagia Esophageal diverticulum Expressive aphasia Gastroparesis Gastrostomy tube dependent History of BPH History of multiple strokes Hyponatremia Iron deficiency anemia Malfunction of gastrostomy tube Seizure disorder Vascular dementia with psychotic disturbance Surgical History Surgical History Gastrostomy tube in place History of left above knee amputation Tracheostomy in place Family History Family History Other Unknown family medical history Social History Social History Social History: Code status: Full code Surrogate decision maker: Sister Smoking status: Unknown if ever smoked Alcohol intake: never Substance use: never Substance use type: does not use Spiritual care concerns: No Meds Home Medications and Allergies Home Medications Medication Instructions Recorded Confirmed Type atorvastatin 40 mg tablet 40 mg feeding tube QHS 11/14/22 03/21/23 History folic acid 1 mg tablet 1 mg feeding tube DAILY 11/14/22 03/21/23 History lacosamide 200 mg tablet 200 mg feeding tube Q12H 11/14/22 02/11/23 History aspirin 81 mg chewable tablet 81 mg feeding tube DAILY 11/15/22 03/21/23 History enoxaparin 40 mg/0.4 mL 40 mg subcut DAILY 11/15/22 02/11/23 History subcutaneous syringe levetiracetam 1,000 mg tablet 2,000 mg PO Q12H 11/15/22 02/11/23 History metoprolol tartrate 25 mg tablet 25 mg feeding tube Q12H 12/18/22 02/11/23 History polyethylene glycol 3350 17 17 g feeding tube DAILY 12/18/22 02/11/23 History gram/dose oral powder bisacodyl 10 mg rectal suppository 10 mg RECTAL DAILY PRN Constipation 02/11/23 03/21/23 History divalproex 500 mg tablet,delayed 500 mg Q6H 02/11/23 02/11/23 History release hydroxyzine HCl 25 mg tablet 25 mg feeding tube QID PRN Itching 02/11/23 02/11/23 History lansoprazole 30 mg capsule,delayed 30 mg feeding tube DAILY 02/11/23 02/11/23 History release magnesium citrate (Citroma oral 296 ml feeding tube DAILY PRN 02/11/23 03/21/23 History solution) Constipation magnesium hydroxide 400 mg/5 mL 30 ml feeding tube HS PRN 02/11/23 02/11/23 History oral suspension (Milk of Magnesia) Constipation metoprolol tartrate 5 mg/5 mL 5 mg IV Q6H PRN Tachycardia 02/11/23 02/11/23 History intravenous solution sennosides 8.6 mg tablet (senna) 8.6 mg feeding tube HS PRN 02/11/23 02/11/23 History Constipation sodium phosphates 19 gram-7 197 ml RECTAL ONCE 02/11/23 03/21/23 History gram/118 mL enema (Fleet Enema) thiamine HCl (vitamin B1) 100 mg 100 mg feeding tube DAILY 02/11/23 02/11/23 History tablet divalproex 125 mg capsule,delayed 250 mg PO Q6H 02/13/23 02/13/23 History release sprinkle ipratropium 0.5 mg-albuterol 3 mg 3 ml inhalation QID PRN shortness 02/21/23 Rx (2.5 mg base)/3 mL nebulization of breath #180 mL soln c
--- NOTE | 2023-03-21 15:34 | PM.CNPUL ---
Assessment and Plan Assessment and plan (1) Aphasia: Code(s): R47.01 - Aphasia Status: Acute (2) Seizure disorder: Code(s): G40.909 - Epilepsy, unspecified, not intractable, without status epilepticus Status: Acute (3) Atelectasis of right lung: Code(s): J98.11 - Atelectasis Status: Acute Assessment and Plan: 63-year-old man with chronic respiratory failure, status post permanent tracheostomy, peg tube placement, resident of a local [facility] was brought in with respiratory distress and hypoxemia related to retention of bronchial secretions. Chest x-rays showing collapse of the right lung. Unclear whether there is lower respiratory tract infection. ? He has been hemodynamically stable, not looking septic.? His leukocyte count is within normal range.? Plan: Will proceed with chest CT, sputum culture urine culture. Monitor patient for hemodynamic instability. Frequent suctioning every 2 hours and in general aggressive pulmonary toilet using nebulized mucolytic agents. Repeat chest x-ray in a.m. will consider bronchoscopy if lung atelectasis persists. Continue with current antibiotics for now. (4) Acute and chronic respiratory failure: Code(s): J96.20 - Acute and chronic respiratory failure, unspecified whether with hypoxia or hypercapnia Status: Acute (5) Tracheostomy in place: Code(s): Z93.0 - Tracheostomy status Status: Acute (6) Vegetative state: Code(s): R40.3 - Persistent vegetative state Status: Acute (7) Hypoxia: Code(s): R09.02 - Hypoxemia Status: Acute History of Present Illness History of Present Illness Consult date: 03/21/23 Chief complaint: Mucus Plug Narrative: This 63-year-old man with chronic respiratory failure, status post permanent tracheostomy, peg tube placement, resident of a local [facility] was brought in with respiratory distress hypoxemia. Reportedly the patient had no fever or hemodynamic instability. Workup in the emergency room with chest x-ray showed right lung collapse. He had mild hypoxemia. Patient has been treated with antibiotics and frequent suctioning. Of note he was hospitalized last month with similar symptoms. He had collapse of the right lung which responded to conservative treatment with a frequent suctioning chest physical therapy and nebulized Mucomyst. Patient has a history of aphasia and cannot provide any details of his illness. He just opens his eyes to verbal response. Answering very simple questions. During most recent hospitalization for right lung atelectasis he grew resistant bacteria in his tracheal secretions, like Staph aureus and resistant Pseudomonas. In the past he grew Acinetobacter baumannii. According to the respiratory therapist his secretions appear clear. Review of Systems Review of Systems: ROS unobtainable: Yes unobtainable due to medical condition PMFSH Past Medical History Medical History Aphasia COPD (chronic obstructive pulmonary disease) Dysphagia Esophageal diverticulum Expressive aphasia Gastroparesis History of BPH History of multiple strokes Iron deficiency anemia Malfunction of gastrostomy tube Seizure disorder Vascular dementia with psychotic disturbance Surgical History Surgical History Gastrostomy tube in place History of left above knee amputation Tracheostomy in place Family History Family History Other Unknown family medical history Social History Social History Social History: Code status: Full code Surrogate decision maker: Sister Smoking status: Unknown if ever smoked Alcohol intake: never Substance use: never Substance use type: does not use Spiritual care concerns: No Meds Home Me
[2023-03-21] MEDS: ACETYLCYSTEINE 20% INHAL SOLN 800 MG/4 ML VIAL 200 MG INHALATION ×3 (16:23→23:57)
[2023-03-21] MEDS: ALBUTEROL SULFATE NEB 2.5 MG/3 ML INH INHALATION ×3 (16:23→23:57)
[2023-03-21] MEDS: AZITHROMYCIN 250 MG TABLET 500 MG FEED TUBE (17:03)
[2023-03-21] MEDS: SODIUM CHLORIDE 0.9% IV 500 ML 75 ML IV CONT (17:03)
[2023-03-21] MEDS: cefTRIAXone 2 GM/NS 100 ML 2 GM/100 ML BAG IVPB (17:04)
[2023-03-21] MEDS: ENOXAPARIN 40 MG/0.4 ML SYRINGE SUB-Q (17:14)
[2023-03-21] MEDS: METOPROLOL TARTRATE INJ 5 MG/5 ML VIAL IV PUSH (18:34)
[2023-03-21] MEDS: levETIRAcetam ORAL SOL 500 MG/5 ML UDC 2000 MG FEED TUBE (20:23)
[2023-03-21] MEDS: VALPROIC ACID LIQ 250 MG/5 ML ORAL SOLUTION UDC 500 MG PO (20:23)
[2023-03-21] MEDS: FAMOTIDINE 20 MG TABLET FEED TUBE (20:24)
[2023-03-21] MEDS: METOPROLOL TARTRATE 25 MG TABLET FEED TUBE (20:24)
[2023-03-21] MEDS: LACOSAMIDE (*CRX) 200 MG TABLET FEED TUBE (20:24)
[2023-03-21] MEDS: cloBAZam (*CRX) 10 MG TABLET 15 MG FEED TUBE (20:24)
[2023-03-21] MEDS: ATORVASTATIN 40 MG TABLET FEED TUBE (20:24)
[2023-03-21] MEDS: polyethylene glycoL 3350 17 GM POWD.PACK FEED TUBE (20:25)
[2023-03-22] VITALS (32 sets, daily range): BP systolic 96–118; BP diastolic 61–88; PULSE 102–131; RESP 20–40; TEMP 36.3–37.5; O2SAT 91–99; BMI 19.8
[2023-03-22] MEDS: VALPROIC ACID LIQ 250 MG/5 ML ORAL SOLUTION UDC 500 MG PO ×4 (00:49→17:00)
[2023-03-22] MEDS: ALBUTEROL SULFATE NEB 2.5 MG/3 ML INH INHALATION ×5 (04:13→21:09)
[2023-03-22] MEDS: ACETYLCYSTEINE 20% INHAL SOLN 800 MG/4 ML VIAL 200 MG INHALATION ×5 (04:13→21:10)
[2023-03-22 05:25] LABS: Alanine Aminotransferase 11 U/L (6-50); Albumin Level 3.5 g/dL (3.5-5.1); Alkaline Phosphatase 80 U/L (38-126); Anion Gap 10 mmol/L (8-16); Aspartate Amino Transferase 21 U/L (17-59); Bilirubin,Total 0.7 mg/dL (0.2-1.3); Blood Urea Nitrogen 12 mg/dL (9-20); Calcium 9.5 mg/dL (8.4-10.2); Carbon Dioxide 21 mmol/L (22-30); Chloride 100 mmol/L (98-107); Estimated CRCL calculation 122 ml/min; Estimated Glomerular Filt Rate > 60; Glucose 123 mg/dL (65-110); Potassium 4.3 mmol/L (3.4-5.0); Sodium 131 mmol/L (137-145)
[2023-03-22 08:06] LABS: Basophils Percent Auto 0.1 % (0.2-1.2); Eosinophils Percent Auto 0.2 % (0-4.4); Hematocrit 43.2 % (42.0-52.0); Hemoglobin 13.7 g/dL (14.0-18.0); Immature Granulocyte Absolute 0.09 K/mm3 (0.00-0.031); Immature Granulocyte Percent A 0.5 % (0-0.5); Immature Platelet Fraction Pct 25.6 % (0.9-11.2); Lymphocytes Absolute Auto 2.79 K/mm3 (0.9-3.2); Lymphocytes Percent Auto 16.4 % (18.3-44.2); Mean Corpuscular HGB Conc 31.7 g/dl (32-36); Mean Corpuscular Hemoglobin 31.6 pg (26-34); Mean Corpuscular Volume 99.5 fl (80-100); Mean Platelet Volume 13.6 fl (7.4-10.4); Monocytes Absolute Auto 2.6 K/mm3 (0.1-0.6); Monocytes Percent Auto 15.2 % (2.6-8.5); Neutrophils Absolute Auto 11.5 K/mm3 (1.3-6.7); Neutrophils Percent Auto 67.6 % (45.5-73.1); Platelet Count Result 71 k/mm3 (150-375); Red Blood Count 4.34 M/mm3 (4.6-6.20); Red Cell Distribution Width 14.2 % (11.5-14.5)
--- NOTE | 2023-03-22 09:36 | PM.IMPN ---
Progress Note: A&P Assessment and Plan (1) Atelectasis of right lung: Code(s): J98.11 - Atelectasis Status: Acute Assessment and Plan: Right lung extensive atelectasis likely from mucus plugging. Pulmonology consulted. Mucolytics and pulmonary toilet with frequent suctioning ordered. Chest CT ordered. May require bronchoscopy. Tracheostomy already in place. (2) Acute and chronic respiratory failure: Qualifiers: Respiratory failure complication: hypoxia Qualified Code(s): J96.21 - Acute and chronic respiratory failure with hypoxia Code(s): J96.20 - Acute and chronic respiratory failure, unspecified whether with hypoxia or hypercapnia Status: Acute Assessment and Plan: Acute exacerbation hypoxemic respiratory failure high-flow oxygenation through trach collar in place. Frequent suctioning. Mucolytics. Pulmonary toilet. Current IMU status. (3) Tracheostomy in place: Code(s): Z93.0 - Tracheostomy status Status: Acute (4) Seizure disorder: Code(s): G40.909 - Epilepsy, unspecified, not intractable, without status epilepticus Status: Chronic Assessment and Plan: Resume home medications, no current seizure activity noted (5) Aphasia: Code(s): R47.01 - Aphasia Status: Chronic Assessment and Plan: Unable to get further information on HPI/ROS due to chronic aphasia. Tracheostomy in place. G-tube dependent. (6) Hypoxia: Code(s): R09.02 - Hypoxemia Status: Acute Assessment and Plan: See 2. (7) Gastrostomy tube dependent: Code(s): Z93.1 - Gastrostomy status Status: Acute Assessment and Plan: Patient is G-tube dependent. Dietitian consult for tube feeding resumption. Medications per G-tube or IV. (8) Hyponatremia: Code(s): E87.1 - Hypo-osmolality and hyponatremia Status: Acute Assessment and Plan: Mildly decreased sodium level at 130 which is comparable to prior results during episodes of acute illness. IV fluids ordered at this time. Plan DVT prophylaxis with SCDs GI prophylaxis not indicated Code status full code Subjective Date/time seen: 03/22/23 09:36 Interval history: 63-year-old male from a nursing facility with a trach and G-tube is presenting with hypoxia and shortness of breath currently being treated for right lung collapse. No overnight events noted. No nausea, vomiting or diarrhea. No fevers or chills. Review of Systems Review of Systems: 12 point review of systems was assessed and was negative except as noted in the HPI Exam Narrative: General: No acute distress, alert and oriented per baseline, trach in place HEENT: Atraumatic, normocephalic, mucous membranes moist CV: Regular rate and rhythm, S1, S2 Lungs: Clear to auscultation bilaterally, no rales or crackles noted, no wheezes, good air entry Abdomen: Soft, nontender, nondistended, G-tube in place Extremities: Normal to inspection Skin: No rashes noted, no lesions or wounds seen Psych: Euthymic, normal affect Objective Data Vital Signs Vital Signs: Vital Signs - 24 hr 03/21/23 09:49 03/21/23 10:50 03/21/23 11:53 Temperature Pulse Rate 100 99 Respiratory Rate 20 31 H 31 H Blood Pressure 110/77 Pulse Oximetry 96 94 94 Oxygen Delivery High Flow Therapy with Tr Oxygen Flow Rate 30 Fraction of Inspired Oxygen 50 03/21/23 09:45 03/21/23 10:00 03/21/23 10:01 Temperature Pulse Rate 101 H 100 101 H Respiratory Rate 29 H 29 H 29 H Blood Pressure 107/79 Pulse Oximetry 96 96 96 Oxygen Delivery Oxygen Flow Rate Fraction of Inspired Oxygen 03/21/23 10:15 03/21/23 10:30 03/21/23 10:31 Temperature Pulse Rate 101 H 98 99 Respiratory Rate 24 H 24 H 25 H Blood Pressure 124/88 Pulse Oximetry 95 96 96 Oxygen Delivery Oxygen Flow Rate Fraction of Inspired Oxygen 03/21/23 10:4
[2023-03-22] MEDS: polyethylene glycoL 3350 17 GM POWD.PACK FEED TUBE ×2 (10:40→16:58)
[2023-03-22] MEDS: cloBAZam (*CRX) 10 MG TABLET 15 MG FEED TUBE ×2 (10:40→16:57)
[2023-03-22] MEDS: levETIRAcetam ORAL SOL 500 MG/5 ML UDC 2000 MG FEED TUBE ×2 (10:40→20:23)
[2023-03-22] MEDS: PANTOPRAZOLE SODIUM IV 40 MG VIAL IV PUSH (10:40)
[2023-03-22] MEDS: LACOSAMIDE (*CRX) 200 MG TABLET FEED TUBE ×2 (10:41→20:23)
[2023-03-22] MEDS: ASPIRIN 81 MG CHEWABLE TABLET FEED TUBE (10:41)
[2023-03-22] MEDS: THIAMINE HCL 100 MG TABLET FEED TUBE (10:41)
[2023-03-22] MEDS: FAMOTIDINE 20 MG TABLET FEED TUBE ×2 (10:42→16:58)
[2023-03-22] MEDS: METOPROLOL TARTRATE 25 MG TABLET FEED TUBE ×2 (10:42→20:23)
[2023-03-22] MEDS: FOLIC ACID 1 MG TABLET FEED TUBE (10:42)
[2023-03-22] MEDS: cefTAZidime 2 GM/NS 50 ML 2 GM/50 ML BAG IVPB ×3 (10:44→21:55)
[2023-03-22] MEDS: SODIUM CHLORIDE 0.9% IV 1,000 ML 100 ML IV CONT ×2 (10:45→21:55)
--- NOTE | 2023-03-22 12:18 | PCDIET ---
TUBE FEEDING RECOMMENDATIONS: Jevity 1.5 @ goal rate 50 ml/h: 1650 kcal, 70 g protein, 836ml free water Flush 100 ml H2O q 4 hours: total water 1436 ml/day
--- NOTE | 2023-03-22 13:35 | PM.PNPUL ---
Progress Note: A&P Assessment and Plan (1) Atelectasis of right lung: Code(s): J98.11 - Atelectasis Status: Acute (2) Pneumonia: Qualifiers: Laterality: right Lung location: unspecified part of lung Pneumonia type: due to unspecified organism Qualified Code(s): J18.9 - Pneumonia, unspecified organism Code(s): J18.9 - Pneumonia, unspecified organism Status: Acute Assessment and Plan: 63-year-old man with chronic respiratory failure, status post permanent tracheostomy, peg tube placement, resident of a local prison was brought in with respiratory distress hypoxemia related to retention of bronchial secretions with some right lung atelectasis and new right lower lobe consolidation due to pneumonia.? Patient has increased amount of bronchial secretions and has been on antibiotics along with aggressive pulmonary toilet.? He has been hemodynamically stable, not looking septic.? His leukocyte count is elevated today. Patient was switched new antibiotics to cover Pseudomonas and MRSA. Sputum culture pending chest CT today showed collapsed lung due to mucus plugging right mainstem bronchus. Plan: continue with current regimen of antibiotics, frequent suctioning, pulmonary toilet. Added IV fluids. Hold DVT prophylaxis for bronchoscopy in a.m. patient will be NPO after midnight tonight. (3) Tracheostomy in place: Code(s): Z93.0 - Tracheostomy status Status: Acute (4) Chronic respiratory failure with hypoxia: Code(s): J96.11 - Chronic respiratory failure with hypoxia Status: Acute Subjective Date/time seen: 03/22/23 13:35 Interval history: There has been no change in respiratory status. Patient is having frequent suctioning and treatment with a nebulized mucolytic and short-acting bronchodilators. Has been hemodynamically stable. Review of Systems Review of Systems: All systems reviewed & are unremarkable except as noted in HPI and below ROS unobtainable: Yes unobtainable due to medical condition Exam Narrative: GENERAL APPEARANCE: Well developed, well nourished, awake middle-age man with permanent tracheostomy, and aphasia. Appears in mild respiratory distress HEENT: Sclerae anicteric and conjunctivae pink and moist. Extraocular movements were intact and pupils were equal. Dry oral mucosa. NECK: Supple. LUNGS: Rhonchi right upper chest anteriorly decreased breath sounds right lateral chest. CARDIAC: There was a regular rate and rhythm without any murmurs, gallops, rubs. ABDOMEN: Not distended, bowel sounds present EXTREMITIES: Left above knee amputation NEUROLOGIC: Appears awake, flaccid upper extremities, opening eyes to verbal commands. Objective Data Vital Signs Vital Signs: Vital Signs - 24 hr 03/21/23 13:56 03/21/23 13:58 03/21/23 14:00 Temperature Pulse Rate 92 108 H Respiratory Rate 28 H 30 H 32 H Blood Pressure 131/82 Pulse Oximetry 93 94 93 Oxygen Delivery Oxygen Flow Rate Fraction of Inspired Oxygen 03/21/23 14:01 03/21/23 14:26 03/21/23 15:13 Temperature 36.2 C L Pulse Rate 84 121 H Respiratory Rate 35 H 35 H 28 H Blood Pressure 129/89 Pulse Oximetry 93 94 95 Oxygen Delivery Oxygen Flow Rate Fraction of Inspired Oxygen 03/21/23 14:45 03/21/23 16:26 03/21/23 16:25 Temperature Pulse Rate 119 H 140 H 142 H Respiratory Rate 20 22 H 24 H Blood Pressure Pulse Oximetry 93 86 L Oxygen Delivery High Flow Therapy with Tr High Flow Therapy with Tr Oxygen Flow Rate 30 30 Fraction of Inspired Oxygen 60 70 03/21/23 16:53 03/21/23 17:00 03/21/23 16:00 Temperature 36.4 C Pulse Rate 139 H 139 H Respiratory Rate 22 H 34 H Blood Pressure 143/86 H Pulse Oximetry 93 97 Oxygen Delivery High Flow Therapy with Tr Oxygen Flow Rate 40 Fraction of Inspired Oxygen 70 03/21/23 18:34 03/21/23 19:59 03/21/23 19:59 Temperature Pulse Rate 147 H 135 H 135 H Respirator
[2023-03-22 19:32] LABS: MRSA (PCR) DETECTED (NOT DETECTE)
[2023-03-22] MEDS: ATORVASTATIN 40 MG TABLET FEED TUBE (20:23)
[2023-03-22] MEDS: AZITHROMYCIN 500 MG/NS 250 ML 500 MG/250 ML BAG 250 MG IVPB (20:24)
[2023-03-22] MEDS: VANCOMYCIN 1,250 MG/NS 250 ML 1,250 MG/250 ML BAG 166.67 MG IVPB (22:29)
[2023-03-23] VITALS (39 sets, daily range): BP systolic 86–115; BP diastolic 52–65; PULSE 78–108; RESP 11–28; TEMP 36.1–36.6; O2SAT 22–100
[2023-03-23] MEDS: VALPROIC ACID LIQ 250 MG/5 ML ORAL SOLUTION UDC 500 MG PO ×5 (00:39→23:32)
[2023-03-23] MEDS: ACETYLCYSTEINE 20% INHAL SOLN 800 MG/4 ML VIAL 200 MG INHALATION ×5 (02:28→17:25)
[2023-03-23] MEDS: ALBUTEROL SULFATE NEB 2.5 MG/3 ML INH INHALATION ×6 (02:28→20:36)
[2023-03-23 04:26] LABS: Basophils Percent Auto 0.1 % (0.2-1.2); Eosinophils Percent Auto 0.4 % (0-4.4); Hematocrit 33.2 % (42.0-52.0); Hemoglobin 10.7 g/dL (14.0-18.0); Immature Granulocyte Absolute 0.04 K/mm3 (0.00-0.031); Immature Granulocyte Percent A 0.4 % (0-0.5); Immature Platelet Fraction Pct 16.3 % (0.9-11.2); Lymphocytes Percent Auto 22.9 % (18.3-44.2); Mean Corpuscular HGB Conc 32.2 g/dl (32-36); Mean Corpuscular Hemoglobin 31.3 pg (26-34); Mean Corpuscular Volume 97.1 fl (80-100); Mean Platelet Volume 13.8 fl (7.4-10.4); Monocytes Absolute Auto 1.7 K/mm3 (0.1-0.6); Monocytes Percent Auto 18.1 % (2.6-8.5); Neutrophils Absolute Auto 5.3 K/mm3 (1.3-6.7); Neutrophils Percent Auto 58.1 % (45.5-73.1); Platelet Count Result 85 k/mm3 (150-375); Red Blood Count 3.42 M/mm3 (4.6-6.20); Red Cell Distribution Width 14.3 % (11.5-14.5); White Blood Count 9.2 K/mm3 (4.5-10.0)
[2023-03-23 04:37] LABS: Alanine Aminotransferase 11 U/L (6-50); Alkaline Phosphatase 70 U/L (38-126); Anion Gap 4 mmol/L (8-16); Aspartate Amino Transferase 19 U/L (17-59); Bilirubin,Total 0.5 mg/dL (0.2-1.3); Blood Urea Nitrogen 10 mg/dL (9-20); Calcium 8.6 mg/dL (8.4-10.2); Carbon Dioxide 26 mmol/L (22-30); Chloride 102 mmol/L (98-107); Estimated CRCL calculation 121 ml/min; Estimated Glomerular Filt Rate > 60; Glucose 98 mg/dL (65-110); Potassium 3.9 mmol/L (3.4-5.0); Sodium 132 mmol/L (137-145)
[2023-03-23] MEDS: cefTAZidime 2 GM/NS 50 ML 2 GM/50 ML BAG IVPB ×2 (05:57→15:18)
[2023-03-23] MEDS: levETIRAcetam ORAL SOL 500 MG/5 ML UDC 2000 MG FEED TUBE ×2 (09:13→20:09)
[2023-03-23] MEDS: PANTOPRAZOLE SODIUM IV 40 MG VIAL IV PUSH (09:13)
[2023-03-23] MEDS: ASPIRIN 81 MG CHEWABLE TABLET FEED TUBE (09:14)
[2023-03-23] MEDS: polyethylene glycoL 3350 17 GM POWD.PACK FEED TUBE ×2 (09:14→17:34)
[2023-03-23] MEDS: FOLIC ACID 1 MG TABLET FEED TUBE (09:15)
[2023-03-23] MEDS: FAMOTIDINE 20 MG TABLET FEED TUBE ×2 (09:15→17:34)
[2023-03-23] MEDS: cloBAZam (*CRX) 10 MG TABLET FEED TUBE ×2 (09:15→17:34)
[2023-03-23] MEDS: ACETAMINOPHEN 325 MG TABLET 650 MG FEED TUBE (09:15)
[2023-03-23] MEDS: CLOBAZAM 5 MG FEED TUBE ×2 (09:15→17:34)
[2023-03-23] MEDS: METOPROLOL TARTRATE 25 MG TABLET FEED TUBE ×2 (09:15→20:09)
[2023-03-23] MEDS: THIAMINE HCL 100 MG TABLET FEED TUBE (09:16)
[2023-03-23] MEDS: LACOSAMIDE (*CRX) 200 MG TABLET FEED TUBE ×2 (09:16→20:10)
[2023-03-23] MEDS: VANCOMYCIN 1,250 MG/NS 250 ML 1,250 MG/250 ML BAG 166.67 MG IVPB (09:27)
--- NOTE | 2023-03-23 12:42 | PM.IMPN ---
Progress Note: A&P Assessment and Plan (1) Atelectasis of right lung: Code(s): J98.11 - Atelectasis Status: Acute Assessment and Plan: Right lung extensive atelectasis likely from mucus plugging. Pulmonology consulted. Mucolytics and pulmonary toilet with frequent suctioning ordered. Chest CT ordered. May require bronchoscopy. Tracheostomy already in place. 03/23: Resolution of collapsed lung after bronchoscopy. May titrate down on oxygen as tolerated (2) Acute and chronic respiratory failure: Qualifiers: Respiratory failure complication: hypoxia Qualified Code(s): J96.21 - Acute and chronic respiratory failure with hypoxia Code(s): J96.20 - Acute and chronic respiratory failure, unspecified whether with hypoxia or hypercapnia Status: Acute Assessment and Plan: Acute exacerbation hypoxemic respiratory failure high-flow oxygenation through trach collar in place. Frequent suctioning. Mucolytics. Pulmonary toilet. Current IMU status. (3) Tracheostomy in place: Code(s): Z93.0 - Tracheostomy status Status: Acute Assessment and Plan: See 2 (4) Seizure disorder: Code(s): G40.909 - Epilepsy, unspecified, not intractable, without status epilepticus Status: Chronic Assessment and Plan: Resume home medications, no current seizure activity noted (5) Aphasia: Code(s): R47.01 - Aphasia Status: Chronic Assessment and Plan: Unable to get further information on HPI/ROS due to chronic aphasia. Tracheostomy in place. G-tube dependent. (6) Hypoxia: Code(s): R09.02 - Hypoxemia Status: Acute Assessment and Plan: See 2. (7) Gastrostomy tube dependent: Code(s): Z93.1 - Gastrostomy status Status: Acute Assessment and Plan: Patient is G-tube dependent. Dietitian consult for tube feeding resumption. Medications per G-tube or IV. (8) Hyponatremia: Code(s): E87.1 - Hypo-osmolality and hyponatremia Status: Acute Assessment and Plan: 03/23: Mildly decreased sodium level at 132 which is comparable to prior results during episodes of acute illness. IV fluids ordered at this time. Resume tube feed diet. Plan DVT prophylaxis with SCDs GI prophylaxis not indicated Code status full code Time Spent With Patient Time with patient: Greater than 35 minutes Subjective Date/time seen: 03/23/23 12:42 Interval history: 03/23: Patient underwent therapeutic bronchoscopy today with improvement in right lung atelectasis. Patient has copius secretions, culture positive for staph aureus (presumably MRSA) as well as pseudomonas. He is on trach collar 40 LPM, FiO2 50%. IV antibiotics per previous culture sensitivities at this time. He will awaken and shake head yes/no. Work of breathing significantly improved. Expiratory Rub noted on auscultation or right lung with adequate inspiration. Review of Systems Review of Systems: ROS unobtainable: Yes unobtainable due to medical condition Exam Narrative: GENERAL: chronically ill appearing, no acute respiratory distress noted HEAD: Normocephalic, atraumatic. ENT: Nares clear, no rhinorrhea or epistaxis. NECK: Supple. No adenopathy or masses. No carotid bruits or JVD. Tracheostomy tube in place with yellowish mucous. CHEST: Expiratory Rub noted on auscultation or right lung with adequate inspiration. HEART: Tachycardic rate, regular rhythm. No murmur heard. Normal peripheral pulses. ABDOMEN: Soft, nontender, nondistended, normal active bowel sounds. G-tube in place, currently clamped. EXTREMITIES: Normal range of motion. No edema. SKIN: Warm, dry, no rash. NEURO: No focal deficits. Alert per baseline PSYCH: Unable to determine due to aphasia. Objective Data Vital Signs Vital Signs: Vital Signs - 24 hr 03/22/23 13:40 03/22/23 13:50 03/22/23 13:56 Temperature Pulse Rate 104 H 1
[2023-03-23] MEDS: LACTATED RINGERS 1,000 ML 150 ML IV CONT (13:19)
[2023-03-23 13:22] LABS: INR 1.2; Prothrombin Time 15.8 Seconds (11.1-14.7)
[2023-03-23] MEDS: LIDOCAINE HCL 2% LOCAL INJ 20 ML VIAL 5 ML INFILTRATE (14:06)
--- NOTE | 2023-03-23 14:09 | SUR.OPER ---
5cc of 2% Lidocaine given. 15cc of NS given. 163cc suctioned out.
--- NOTE | 2023-03-23 14:47 | PM.PNPUL ---
Progress Note: A&P Assessment and Plan (1) Atelectasis of right lung: Code(s): J98.11 - Atelectasis Status: Acute (2) Pneumonia: Qualifiers: Laterality: right Lung location: unspecified part of lung Pneumonia type: due to unspecified organism Qualified Code(s): J18.9 - Pneumonia, unspecified organism Code(s): J18.9 - Pneumonia, unspecified organism Status: Acute Assessment and Plan: 63-year-old man with chronic respiratory failure, status post permanent tracheostomy, peg tube placement, resident of a local retirement was brought in with respiratory distress hypoxemia related to retention of bronchial secretions with some right lung atelectasis and new right lower lobe consolidation due to pneumonia.? Patient has increased amount of bronchial secretions and has been on antibiotics along with aggressive pulmonary toilet.? He underwent therapeutic bronchoscopy this p.m. today. Bronchoscopy showed increased amount of thick yellow secretions lower trachea right mainstem bronchus. The right bronchial tree appeared erythematous edematous. Bronchial washings were sent for routine blood cultures. On today's testing his WBC is back into the normal range. Sputum culture positive for Pseudomonas and Staph aureus. Patient's antibiotics were chosen on the basis of antibiotic sensitivity of these two bacteria during previous hospitalizations. Has been hemodynamically stable, not looking septic chest x-ray post bronchoscopy showed reversal of right lung atelectasis.? Plan: continue with current regimen of antibiotics, frequent suctioning, pulmonary toilet. . Decreased IV fluids. Resume tube feedings. Resume DVT prophylaxis starting in a.m. (3) Tracheostomy in place: Code(s): Z93.0 - Tracheostomy status Status: Acute (4) Chronic respiratory failure with hypoxia: Code(s): J96.11 - Chronic respiratory failure with hypoxia Status: Acute Subjective Date/time seen: 03/23/23 14:47 Interval history: No change in clinical status. Patient continues to have copious amount of thick yellow bronchial secretions despite frequent suctioning. Has been hemodynamically stable. Antibiotic coverage broadened to cover previous resistant bacteria. Patient underwent therapeutic bronchoscopy today. Review of Systems Review of Systems: All systems reviewed & are unremarkable except as noted in HPI and below ROS unobtainable: Yes unobtainable due to medical condition Exam Narrative: GENERAL APPEARANCE: Well developed, well nourished, awake middle-age man with permanent tracheostomy, and aphasia. Appears in mild respiratory distress HEENT: Sclerae anicteric and conjunctivae pink and moist. Extraocular movements were intact and pupils were equal. Dry oral mucosa. NECK: Supple. LUNGS: Rhonchi right upper chest anteriorly decreased breath sounds right lateral chest. CARDIAC: There was a regular rate and rhythm without any murmurs, gallops, rubs. ABDOMEN: Not distended, bowel sounds present EXTREMITIES: Left above knee amputation NEUROLOGIC: Appears awake, flaccid upper extremities, opening eyes to verbal commands. Objective Data Vital Signs Vital Signs: Vital Signs - 24 hr 03/22/23 15:45 03/22/23 16:10 03/22/23 16:34 Temperature 36.3 C L Pulse Rate 110 H 106 H 116 H Respiratory Rate 32 H 26 H 26 H Blood Pressure 96/62 L Pulse Oximetry 98 Oxygen Delivery Oxygen Flow Rate Fraction of Inspired Oxygen 03/22/23 16:00 03/22/23 18:00 03/22/23 16:00 Temperature Pulse Rate 112 H 113 H Respiratory Rate Blood Pressure Pulse Oximetry 91 Oxygen Delivery Trach Collar Oxygen Flow Rate 40 Fraction of Inspired Oxygen 50 03/22/23 19:46 03/22/23 20:23 03/22/23 21:13 Temperature 36.3 C L Pulse Rate 114 H 110 H Respiratory Rate 24 H Blood Pressure 110/88 Pulse Oximetry 95 94 Oxygen Delivery High Flow Therapy with Tr Oxygen Flow R
[2023-03-23] MEDS: SODIUM CHLORIDE 0.9% IV 1,000 ML 50 ML IV CONT (17:35)
[2023-03-23] MEDS: AZITHROMYCIN 500 MG/NS 250 ML 500 MG/250 ML BAG 250 MG IVPB (20:09)
[2023-03-23] MEDS: ATORVASTATIN 40 MG TABLET FEED TUBE (20:10)
[2023-03-23 22:09] LABS: Vancomycin Trough 12.2 ug/mL (10.0-20.0)
[2023-03-24] VITALS (27 sets, daily range): BP systolic 101–116; BP diastolic 5–62; PULSE 73–108; RESP 18–28; TEMP 36.2–36.5; O2SAT 94–98
[2023-03-24] MEDS: ACETYLCYSTEINE 20% INHAL SOLN 800 MG/4 ML VIAL 200 MG INHALATION ×3 (00:36→15:00)
[2023-03-24] MEDS: ALBUTEROL SULFATE NEB 2.5 MG/3 ML INH INHALATION ×6 (00:36→20:35)
[2023-03-24 04:31] LABS: Basophils Percent Auto 0.2 % (0.2-1.2); Eosinophils Absolute Auto 0.3 K/mm3 (0-0.3); Eosinophils Percent Auto 4.3 % (0-4.4); Hematocrit 32.2 % (42.0-52.0); Hemoglobin 10.2 g/dL (14.0-18.0); Immature Granulocyte Absolute 0.02 K/mm3 (0.00-0.031); Immature Granulocyte Percent A 0.3 % (0-0.5); Immature Platelet Fraction Pct 14.8 % (0.9-11.2); Lymphocytes Percent Auto 21.5 % (18.3-44.2); Mean Corpuscular HGB Conc 31.7 g/dl (32-36); Mean Corpuscular Hemoglobin 31.4 pg (26-34); Mean Corpuscular Volume 99.1 fl (80-100); Mean Platelet Volume 13.4 fl (7.4-10.4); Monocytes Absolute Auto 0.9 K/mm3 (0.1-0.6); Monocytes Percent Auto 14.9 % (2.6-8.5); Neutrophils Absolute Auto 3.6 K/mm3 (1.3-6.7); Neutrophils Percent Auto 58.8 % (45.5-73.1); Platelet Count Result 89 k/mm3 (150-375); Red Blood Count 3.25 M/mm3 (4.6-6.20); Red Cell Distribution Width 14.1 % (11.5-14.5); White Blood Count 6.1 K/mm3 (4.5-10.0)
[2023-03-24 04:43] LABS: Alanine Aminotransferase 17 U/L (6-50); Albumin Level 2.7 g/dL (3.5-5.1); Alkaline Phosphatase 74 U/L (38-126); Anion Gap 4 mmol/L (8-16); Aspartate Amino Transferase 31 U/L (17-59); Bilirubin,Total 0.3 mg/dL (0.2-1.3); Blood Urea Nitrogen 9 mg/dL (9-20); Calcium 8.6 mg/dL (8.4-10.2); Carbon Dioxide 26 mmol/L (22-30); Chloride 108 mmol/L (98-107); Estimated CRCL calculation 148 ml/min; Estimated Glomerular Filt Rate > 60; Glucose 108 mg/dL (65-110); Potassium 3.9 mmol/L (3.4-5.0); Sodium 138 mmol/L (137-145)
[2023-03-24] MEDS: VALPROIC ACID LIQ 250 MG/5 ML ORAL SOLUTION UDC 500 MG PO ×4 (06:17→23:48)
[2023-03-24] MEDS: cefTAZidime 2 GM/NS 50 ML 2 GM/50 ML BAG IVPB ×3 (06:17→23:27)
[2023-03-24] MEDS: ASPIRIN 81 MG CHEWABLE TABLET FEED TUBE (09:21)
[2023-03-24] MEDS: THIAMINE HCL 100 MG TABLET FEED TUBE (09:21)
[2023-03-24] MEDS: levETIRAcetam ORAL SOL 500 MG/5 ML UDC 2000 MG FEED TUBE ×2 (09:21→21:06)
[2023-03-24] MEDS: FOLIC ACID 1 MG TABLET FEED TUBE (09:22)
[2023-03-24] MEDS: CLOBAZAM 5 MG FEED TUBE ×2 (09:22→16:53)
[2023-03-24] MEDS: ACETAMINOPHEN 325 MG TABLET 650 MG FEED TUBE (09:22)
[2023-03-24] MEDS: PANTOPRAZOLE SODIUM IV 40 MG VIAL IV PUSH (09:22)
[2023-03-24] MEDS: FAMOTIDINE 20 MG TABLET FEED TUBE ×2 (09:22→16:53)
[2023-03-24] MEDS: cloBAZam (*CRX) 10 MG TABLET FEED TUBE ×2 (09:22→16:53)
[2023-03-24] MEDS: LACOSAMIDE (*CRX) 200 MG TABLET FEED TUBE ×2 (09:22→21:06)
[2023-03-24] MEDS: METOPROLOL TARTRATE 25 MG TABLET FEED TUBE ×2 (09:22→21:05)
--- NOTE | 2023-03-24 10:09 | WPDANESPN ---
Anes - Prog Note Post-Op Date/Time: 03/24/23 10:09 Cardiovascular status: normal Respiratory status: normal Airway patency: baseline Mental status: baseline Post-Op hydration status: normal Vital Signs: Last Vital Signs Temp 97.5 F L 03/24/23 08:00 Pulse 92 03/24/23 09:22 Resp 22 H 03/24/23 08:00 BP 116/59 L 03/24/23 08:00 Pulse Ox 98 03/24/23 08:00 O2 Del Method High Flow Therapy with Trach Collar 03/24/23 07:15 O2 Flow Rate 40 03/24/23 07:15 FiO2 50 03/24/23 07:15 Pain Score (VAS): 0 I/O: Intake & Output 03/23/23 03/24/23 03/24/23 23:59 07:59 15:59 Intake Total 300 Output Total 300 850 Balance 0 -850 Laboratory Tests 03/24/23 03:58 03/24/23 03:58 03/23/23 03/23/23 03/24/23 13:07 21:16 03:58 WBC 6.1 RBC 3.25 L Hgb 10.2 L Hct 32.2 L MCV 99.1 MCH 31.4 MCHC 31.7 L RDW 14.1 Plt Count 89 L MPV 13.4 H Immature Gran % (Auto) 0.3 Neut % (Auto) 58.8 Lymph % (Auto) 21.5 Cherry % (Auto) 14.9 H Eos % (Auto) 4.3 Baso % (Auto) 0.2 Lymph # (Auto) 1.30 Cherry # (Auto) 0.9 H Eos # (Auto) 0.3 Baso # (Auto) 0.0 Abs Immat Gran (auto) 0.02 Absolute Neuts (auto) 3.6 Absolute Nucleated RBC 0.0 Nucleated RBC % 0.0 % Immature Plt Fraction 14.8 H PT 15.8 H INR 1.2 Sodium 138 Potassium 3.9 Chloride 108 H Carbon Dioxide 26 Anion Gap 4 L BUN 9 Creatinine 0.40 L Estim Creat Clear Calc 148 Estimated GFR > 60 Glucose 108 Calcium 8.6 Total Bilirubin 0.3 AST 31 ALT 17 Alkaline Phosphatase 74 Total Protein 6.0 L Albumin 2.7 L Vancomycin Trough 12.2 Microbiology 03/22/23 18:25 Urine - Urine,Catheterized Urine Culture - Final 03/21/23 18:47 Sputum Sputum Culture - Preliminary Pseudomonas aeruginosa Staphylococcus aureus Post-procedural complaints: none Patient Feedback: Patient satisfied with anesthetic care.spoke with RN caring for patient. nurse states she took care of patient after yesterdays bronch as well. states pt doing well. no complications or concerns after procedure.
--- NOTE | 2023-03-24 11:01 | PM.IMPN ---
Progress Note: A&P Assessment and Plan (1) Atelectasis of right lung: Code(s): J98.11 - Atelectasis Status: Acute Assessment and Plan: Right lung extensive atelectasis likely from mucus plugging. Pulmonology consulted. Mucolytics and pulmonary toilet with frequent suctioning ordered. Chest CT ordered. May require bronchoscopy. Tracheostomy already in place. 03/23: Resolution of collapsed lung after bronchoscopy. May titrate down on oxygen as tolerated 03/24: Course, diminished right sided lung sounds. CXR with opacity, atelactesis vs pneumonia. Patient being treated for previous sputum culture. (2) Acute and chronic respiratory failure: Qualifiers: Respiratory failure complication: hypoxia Qualified Code(s): J96.21 - Acute and chronic respiratory failure with hypoxia Code(s): J96.20 - Acute and chronic respiratory failure, unspecified whether with hypoxia or hypercapnia Status: Acute Assessment and Plan: Acute exacerbation hypoxemic respiratory failure high-flow oxygenation through trach collar in place. Frequent suctioning. Mucolytics. Pulmonary toilet. Current IMU status. (3) Tracheostomy in place: Code(s): Z93.0 - Tracheostomy status Status: Acute Assessment and Plan: See 2 (4) Seizure disorder: Code(s): G40.909 - Epilepsy, unspecified, not intractable, without status epilepticus Status: Chronic Assessment and Plan: Resume home medications, no current seizure activity noted (5) Aphasia: Code(s): R47.01 - Aphasia Status: Chronic Assessment and Plan: Unable to get further information on HPI/ROS due to chronic aphasia. Tracheostomy in place. G-tube dependent. (6) Hypoxia: Code(s): R09.02 - Hypoxemia Status: Acute Assessment and Plan: See 2. (7) Gastrostomy tube dependent: Code(s): Z93.1 - Gastrostomy status Status: Acute Assessment and Plan: Patient is G-tube dependent. Dietitian consult for tube feeding resumption. Medications per G-tube or IV. (8) Hyponatremia: Code(s): E87.1 - Hypo-osmolality and hyponatremia Status: Acute Assessment and Plan: 03/23: Mildly decreased sodium level at 132 which is comparable to prior results during episodes of acute illness. IV fluids ordered at this time. Resume tube feed diet. 03/24: Improved sodium to 138. IV fluids discontinued due to concern for fluid overload. Patient on tube feeds with flushes. Plan DVT prophylaxis with SCDs GI prophylaxis not indicated Code status full code Time Spent With Patient Time with patient: Greater than 35 minutes Subjective Date/time seen: 03/24/23 11:01 Interval history: 03/23: Patient underwent therapeutic bronchoscopy today with improvement in right lung atelectasis. Patient has copius secretions, culture positive for staph aureus (presumably MRSA) as well as pseudomonas. He is on trach collar 40 LPM, FiO2 50%. IV antibiotics per previous culture sensitivities at this time. He will awaken and shake head yes/no. Work of breathing significantly improved. Expiratory Rub noted on auscultation or right lung with adequate inspiration. 03/24: Patient more awake today, no respiratory distress. Still making significant secretions. He appears to be fluid retaining peripherally. AFB cultures ordered by Pulmonology. Review of Systems Review of Systems: ROS unobtainable: Yes unobtainable due to medical condition Exam Narrative: GENERAL: chronically ill appearing, no acute respiratory distress noted HEAD: Normocephalic, atraumatic. ENT: Nares clear, no rhinorrhea or epistaxis. NECK: Supple. No adenopathy or masses. No carotid bruits or JVD. Tracheostomy tube in place with yellowish mucous. CHEST: Expiratory Rub noted on auscultation or right lung with adequate inspiration. HEART: Tachycardic rate, regular rhythm. No murmur hea
--- NOTE | 2023-03-24 14:02 | PM.PNPUL ---
Progress Note: A&P Assessment and Plan (1) Atelectasis of right lung: Code(s): J98.11 - Atelectasis Status: Acute (2) Pneumonia: Qualifiers: Laterality: right Lung location: unspecified part of lung Pneumonia type: due to unspecified organism Qualified Code(s): J18.9 - Pneumonia, unspecified organism Code(s): J18.9 - Pneumonia, unspecified organism Status: Acute Assessment and Plan: 63-year-old man with chronic respiratory failure, status post permanent tracheostomy, peg tube placement, resident of a local senior living was brought in with respiratory distress hypoxemia related to retention of bronchial secretions with some right lung atelectasis and new right lower lobe consolidation due to pneumonia.? Patient has increased amount of bronchial secretions and has been on antibiotics along with aggressive pulmonary toilet.? He underwent therapeutic bronchoscopy yesterday. Bronchoscopy showed increased amount of thick yellow secretions lower trachea right mainstem bronchus. The right bronchial tree appeared erythematous edematous. Bronchial washings were sent for routine blood cultures. Since yesterday the chest x-ray showing inflated right lung, as well as small effusions bilaterally right greater than left. Doubt he has empyema as wbc's back into the normal range. Growing resistant bacteria MRSA and Pseudomonas. On antibiotics based on previous sensitivity. Await final report with bacterial sensitivity. Plan: Continue with pulmonary toilet, frequent suctioning nebulized mucolytic agents and nebulized short-acting bronchodilators DVT prophylaxis. Monitor I&Os, consider IV Lasix for small pleural effusions if patient hemodynamically stable. Repeat chest x-ray in a.m. (3) Tracheostomy in place: Code(s): Z93.0 - Tracheostomy status Status: Acute (4) Chronic respiratory failure with hypoxia: Code(s): J96.11 - Chronic respiratory failure with hypoxia Status: Acute Subjective Date/time seen: 03/24/23 14:02 Interval history: Patient remains hemodynamically stable. Bronchial secretions less overnight following a bronchoscopy. WBC remains in normal range. Review of Systems Review of Systems: ROS unobtainable: Yes unobtainable due to medical condition Exam Narrative: GENERAL APPEARANCE: Well developed, well nourished, awake middle-age man with permanent tracheostomy, and aphasia. Appears in mild respiratory distress HEENT: Sclerae anicteric and conjunctivae pink and moist. Extraocular movements were intact and pupils were equal. Dry oral mucosa. NECK: Supple. LUNGS: Rhonchi right upper chest anteriorly decreased breath sounds right lateral chest. CARDIAC: There was a regular rate and rhythm without any murmurs, gallops, rubs. ABDOMEN: Not distended, bowel sounds present EXTREMITIES: Left above knee amputation NEUROLOGIC: Appears awake, flaccid upper extremities, opening eyes to verbal commands. Objective Data Vital Signs Vital Signs: Vital Signs - 24 hr 03/23/23 14:05 03/23/23 14:15 03/23/23 14:25 Temperature Pulse Rate 85 84 83 Respiratory Rate 22 H 22 H 21 H Blood Pressure 86/52 L 95/55 L 93/55 L Pulse Oximetry 93 93 95 Oxygen Delivery Trach Collar Trach Collar Trach Collar Oxygen Flow Rate 10 10 10 Fraction of Inspired Oxygen 03/23/23 14:33 03/23/23 15:02 03/23/23 15:44 Temperature 36.1 C L Pulse Rate 81 82 78 Respiratory Rate 20 20 20 Blood Pressure 100/58 L 104/65 Pulse Oximetry 94 96 99 Oxygen Delivery Trach Collar High Flow Therapy with Tr Oxygen Flow Rate 10 40 Fraction of Inspired Oxygen 50 03/23/23 17:26 03/23/23 17:43 03/23/23 19:29 Temperature 36.5 C Pulse Rate 85 89 90 Respiratory Rate 20 20 20 Blood Pressure 112/59 L Pulse Oximetry 97 Oxygen Delivery Oxygen Flow Rate Fraction of Inspired Oxygen 03/23/23 16:00 03/23/23 18:00 03/23/23 16:00 Temperature Pulse Rate 84 88 Re
[2023-03-24] MEDS: FUROSEMIDE INJ 40 MG/4 ML VIAL IV PUSH (16:50)
[2023-03-24] MEDS: AZITHROMYCIN 500 MG/NS 250 ML 500 MG/250 ML BAG 250 MG IVPB (21:04)
[2023-03-24] MEDS: ATORVASTATIN 40 MG TABLET FEED TUBE (21:05)
[2023-03-25] VITALS (35 sets, daily range): BP systolic 106–189; BP diastolic 47–120; PULSE 84–113; RESP 20–28; TEMP 36–36.9; O2SAT 93–100
[2023-03-25] MEDS: ALBUTEROL SULFATE NEB 2.5 MG/3 ML INH INHALATION ×6 (00:22→21:20)
[2023-03-25] MEDS: ACETYLCYSTEINE 20% INHAL SOLN 800 MG/4 ML VIAL 200 MG INHALATION ×3 (00:22→16:11)
[2023-03-25 04:43] LABS: Basophils Percent Auto 0.2 % (0.2-1.2); Eosinophils Absolute Auto 0.4 K/mm3 (0-0.3); Hematocrit 33.8 % (42.0-52.0); Hemoglobin 10.9 g/dL (14.0-18.0); Immature Granulocyte Absolute 0.01 K/mm3 (0.00-0.031); Immature Granulocyte Percent A 0.2 % (0-0.5); Immature Platelet Fraction Pct 13.9 % (0.9-11.2); Lymphocytes Absolute Auto 1.35 K/mm3 (0.9-3.2); Lymphocytes Percent Auto 26.2 % (18.3-44.2); Mean Corpuscular HGB Conc 32.2 g/dl (32-36); Mean Corpuscular Hemoglobin 31.1 pg (26-34); Mean Corpuscular Volume 96.6 fl (80-100); Mean Platelet Volume 13.4 fl (7.4-10.4); Monocytes Absolute Auto 0.7 K/mm3 (0.1-0.6); Monocytes Percent Auto 12.6 % (2.6-8.5); Neutrophils Absolute Auto 2.8 K/mm3 (1.3-6.7); Neutrophils Percent Auto 53.8 % (45.5-73.1); Platelet Count Result 119 k/mm3 (150-375); Red Cell Distribution Width 14.2 % (11.5-14.5); White Blood Count 5.2 K/mm3 (4.5-10.0)
[2023-03-25 05:06] LABS: Alanine Aminotransferase 21 U/L (6-50); Alkaline Phosphatase 86 U/L (38-126); Anion Gap 4 mmol/L (8-16); Aspartate Amino Transferase 29 U/L (17-59); Bilirubin,Total 0.4 mg/dL (0.2-1.3); Blood Urea Nitrogen 7 mg/dL (9-20); Calcium 9.2 mg/dL (8.4-10.2); Carbon Dioxide 32 mmol/L (22-30); Chloride 104 mmol/L (98-107); Estimated CRCL calculation 146 ml/min; Estimated Glomerular Filt Rate > 60; Glucose 135 mg/dL (65-110); Potassium 3.6 mmol/L (3.4-5.0); Sodium 140 mmol/L (137-145)
[2023-03-25] MEDS: VALPROIC ACID LIQ 250 MG/5 ML ORAL SOLUTION UDC 500 MG PO ×3 (06:12→17:04)
[2023-03-25] MEDS: cefTAZidime 2 GM/NS 50 ML 2 GM/50 ML BAG IVPB (06:14)
[2023-03-25] MEDS: ASPIRIN 81 MG CHEWABLE TABLET FEED TUBE (08:59)
[2023-03-25] MEDS: CLOBAZAM 5 MG FEED TUBE ×2 (08:59→17:04)
[2023-03-25] MEDS: FAMOTIDINE 20 MG TABLET FEED TUBE ×2 (08:59→17:04)
[2023-03-25] MEDS: levETIRAcetam ORAL SOL 500 MG/5 ML UDC 2000 MG FEED TUBE ×2 (08:59→20:53)
[2023-03-25] MEDS: ACETAMINOPHEN 325 MG TABLET 650 MG FEED TUBE ×2 (08:59→14:26)
[2023-03-25] MEDS: PANTOPRAZOLE SODIUM IV 40 MG VIAL IV PUSH (08:59)
[2023-03-25] MEDS: THIAMINE HCL 100 MG TABLET FEED TUBE (08:59)
[2023-03-25] MEDS: LACOSAMIDE (*CRX) 200 MG TABLET FEED TUBE ×2 (09:00→20:53)
[2023-03-25] MEDS: cloBAZam (*CRX) 10 MG TABLET FEED TUBE ×2 (09:00→17:04)
[2023-03-25] MEDS: FOLIC ACID 1 MG TABLET FEED TUBE (09:00)
[2023-03-25] MEDS: METOPROLOL TARTRATE 25 MG TABLET FEED TUBE ×2 (09:00→20:53)
--- NOTE | 2023-03-25 09:40 | PM.PNPUL ---
Progress Note: A&P Assessment and Plan (1) Atelectasis of right lung: Code(s): J98.11 - Atelectasis Status: Acute (2) Pneumonia: Qualifiers: Laterality: right Lung location: unspecified part of lung Pneumonia type: due to unspecified organism Qualified Code(s): J18.9 - Pneumonia, unspecified organism Code(s): J18.9 - Pneumonia, unspecified organism Status: Acute Assessment and Plan: 63-year-old man with chronic respiratory failure, status post permanent tracheostomy, peg tube placement, resident of a local shelter was brought in with respiratory distress hypoxemia related to retention of bronchial secretions with some right lung atelectasis and new right lower lobe consolidation due to pneumonia.? Patient has increased amount of bronchial secretions and has been on antibiotics along with aggressive pulmonary toilet.? He underwent therapeutic bronchoscopy yesterday. Bronchoscopy showed increased amount of thick yellow secretions lower trachea right mainstem bronchus. The right bronchial tree appeared erythematous edematous. Bronchial washings were sent for routine blood cultures. Since yesterday the chest x-ray showing inflated right lung, as well as small effusions bilaterally right greater than left. Doubt he has empyema as wbc's back into the normal range. Growing resistant bacteria MRSA and Pseudomonas. Pseudomonas intermediate to ceftazidime. Staph aureus sensitive to oral medications. Case was discussed with Infectious Disease pharmacist. Antibiotics were changed. Meropenem in place of ceftazidime for better coverage of Pseudomonas. Continue with another day with vancomycin the switch to oral medication as discussed with Infectious Disease pharmacist. Regarding today's chest x-ray showing collapse of right lung will continue with aggressive pulmonary toilet suctioning every hour continue with nebulized short-acting bronchodilators and nebulized mucolytic agents. Repeat chest x-ray in a.m.. No bronchoscopy is planned for today. (3) Tracheostomy in place: Code(s): Z93.0 - Tracheostomy status Status: Acute (4) Chronic respiratory failure with hypoxia: Code(s): J96.11 - Chronic respiratory failure with hypoxia Status: Acute Subjective Date/time seen: 03/25/23 09:40 Interval history: Patient has no new respiratory symptoms. Has been hemodynamically stable. Continues to have a increased amount of bronchial secretions. WBC remains in normal range. Bacterial sensitivity is out. Review of Systems Review of Systems: All systems reviewed & are unremarkable except as noted in HPI and below (HPI and below) Exam Narrative: GENERAL APPEARANCE: Well developed, well nourished, awake middle-age man with permanent tracheostomy, and aphasia. Appears in mild respiratory distress. He does not look septic HEENT: Sclerae anicteric and conjunctivae pink and moist. Extraocular movements were intact and pupils were equal. Dry oral mucosa. NECK: Supple. LUNGS: Rhonchi right upper chest anteriorly decreased breath sounds right lateral chest. CARDIAC: There was a regular rate and rhythm without any murmurs, gallops, rubs. ABDOMEN: Not distended, bowel sounds present EXTREMITIES: Left above knee amputation NEUROLOGIC: Appears awake, flaccid upper extremities, opening eyes to verbal commands. Objective Data Vital Signs Vital Signs: Vital Signs - 24 hr 03/24/23 11:00 03/24/23 11:00 03/24/23 11:10 Temperature Pulse Rate 85 85 87 Respiratory Rate 20 20 20 Blood Pressure Pulse Oximetry 97 Oxygen Delivery High Flow Therapy with Tr Oxygen Flow Rate 40 Fraction of Inspired Oxygen 50 03/24/23 12:00 03/24/23 15:00 03/24/23 15:00 Temperature 36.2 C L Pulse Rate 80 84 84 Respiratory Rate 22 H 20 20 Blood Pressure 110/60 Pulse Oximetry 94 98 Oxygen Delivery High Flow Therapy with Tr Oxygen Flow Rate 40 Fraction of Inspired Oxyg
[2023-03-25] MEDS: MEROPENEM 1 GM/NS 100 ML 1 GM/100 ML BAG IVPB ×2 (10:03→17:04)
--- NOTE | 2023-03-25 11:09 | PCNFU ---
Nutrition Follow-Up Complete: Inadequate energy intake related to inability to swallow as evidenced by PEG tube, need for full tube feeding Goal:Tolerate tube feeding at goal rate Pt meeting goal, continue with same goal. Pt current nutrition is Jevity 1.5 @ 50ml/hr = 1650kcals, 70g protein, 836ml fluid. Nutrition recommendation: continue with current plan of care Last recorded weight is 66.5 kg - stable. Bowel Motility: +BM 03/24 Labs Reviewed: Hgb:10.9, HCT:33.8, Alb:3.0, BUN:7, Cr:0.4, Glu:135 Meds Noted: zofran, protonix, thiamin Skin: no skin issues noted Additional Notes: Pt continues on same tube feeding regimen. Current rate is sufficient to meet estimated needs. Monitoring tube feeding orders, plan of care, weights, labs, tolerance Follow up Tuesdays and Fridays per policy
--- NOTE | 2023-03-25 13:16 | PM.IMPN ---
Progress Note: A&P Assessment and Plan (1) Atelectasis of right lung: Code(s): J98.11 - Atelectasis Status: Acute Assessment and Plan: Right lung extensive atelectasis likely from mucus plugging. Pulmonology consulted. Mucolytics and pulmonary toilet with frequent suctioning ordered. Chest CT ordered. May require bronchoscopy. Tracheostomy already in place. 03/23: Resolution of collapsed lung after bronchoscopy. May titrate down on oxygen as tolerated 03/24: Course, diminished right sided lung sounds. CXR with opacity, atelactesis vs pneumonia. Patient being treated for previous sputum culture. 03/25: Diminished right lung sounds, coarse sounding. Hourly suction ordered per Pulmonary. Trach changed to 7.5 Shiley at bedside by ENT at request of Pulmonary for better access to bronch again if needed. (2) Acute and chronic respiratory failure: Qualifiers: Respiratory failure complication: hypoxia Qualified Code(s): J96.21 - Acute and chronic respiratory failure with hypoxia Code(s): J96.20 - Acute and chronic respiratory failure, unspecified whether with hypoxia or hypercapnia Status: Acute Assessment and Plan: Acute exacerbation hypoxemic respiratory failure high-flow oxygenation through trach collar in place. Frequent suctioning. Mucolytics. Pulmonary toilet. Current IMU status. 03/25: Added Vest CPT to help mobilize secretions (3) Tracheostomy in place: Code(s): Z93.0 - Tracheostomy status Status: Acute Assessment and Plan: See 1 and 2 03/25: Bedside trach change to 7.5 Shiley with inner cannulas (4) Seizure disorder: Code(s): G40.909 - Epilepsy, unspecified, not intractable, without status epilepticus Status: Chronic Assessment and Plan: Resume home medications, no current seizure activity noted 03/25: IV antibiotics changed to Meropenum which interferes with valproate. RN aware to monitor for seizure activity. PRN Ativan ordered (5) Aphasia: Code(s): R47.01 - Aphasia Status: Chronic Assessment and Plan: Unable to get further information on HPI/ROS due to chronic aphasia. Tracheostomy in place. G-tube dependent. (6) Hypoxia: Code(s): R09.02 - Hypoxemia Status: Acute Assessment and Plan: See 1 and 2 (7) Gastrostomy tube dependent: Code(s): Z93.1 - Gastrostomy status Status: Acute Assessment and Plan: Patient is G-tube dependent. Dietitian consult for tube feeding resumption. Medications per G-tube or IV. (8) Hyponatremia: Code(s): E87.1 - Hypo-osmolality and hyponatremia Status: Acute Assessment and Plan: 03/23: Mildly decreased sodium level at 132 which is comparable to prior results during episodes of acute illness. IV fluids ordered at this time. Resume tube feed diet. 03/24: Improved sodium to 138. IV fluids discontinued due to concern for fluid overload. Patient on tube feeds with flushes. 03/25: Resolved. Sodium 140 today. Plan DVT prophylaxis with SCDs GI prophylaxis not indicated Code status full code Time Spent With Patient Time with patient: Greater than 35 minutes Subjective Date/time seen: 03/25/23 13:16 Interval history: 03/23: Patient underwent therapeutic bronchoscopy today with improvement in right lung atelectasis. Patient has copius secretions, culture positive for staph aureus (presumably MRSA) as well as pseudomonas. He is on trach collar 40 LPM, FiO2 50%. IV antibiotics per previous culture sensitivities at this time. He will awaken and shake head yes/no. Work of breathing significantly improved. Expiratory Rub noted on auscultation or right lung with adequate inspiration. 03/24: Patient more awake today, no respiratory distress. Still making significant secretions. He appears to be fluid retaining peripherally. AFB cultures ordered by Pulmonology. 03/25: Trach replaced
[2023-03-25] MEDS: MIDAZOLAM HCL (*CRX) 2 MG/2 ML VIAL IV PUSH (13:56)
--- NOTE | 2023-03-25 14:02 | PC.NURSE ---
unable to do end tidal CO2 monitor due to trach
--- NOTE | 2023-03-25 14:39 | WPDPROCEDUR ---
Procedures Other Procedures Procedure 1: Other Procedure: Trach exchange. Patient was properly positioned consent was obtained and I exchanged the trach twice we put in a Shiley with an inner diameter 7.5. We confirmed it by suctioning of secretions. Patient tolerated everything very well trach ties applied
--- NOTE | 2023-03-25 14:49 | WPDCN ---
Assessment and Plan Assessment and plan (1) Mucus plugging of bronchi: Code(s): T17.500A - Unspecified foreign body in bronchus causing asphyxiation, initial encounter Status: Acute Assessment and Plan: Trach exchange keep the trach ties very tight keep the straddle truck operator in the room. Call me with any issues. (2) Acute and chronic respiratory failure: Qualifiers: Respiratory failure complication: hypoxia Qualified Code(s): J96.21 - Acute and chronic respiratory failure with hypoxia Code(s): J96.20 - Acute and chronic respiratory failure, unspecified whether with hypoxia or hypercapnia Status: Acute HPI Data of Consult Date/Time: 03/25/23 14:49 Requesting Physician: Chai Allison MD Primary Care Provider: Burke Restrepo, Consult Narrative Narrative: Bi Tabor is a 63 year old male history tracheostomy patient needs at upsized his pneumonia for bronchial lavage. Pulmonary toilet. Review of Systems Review of Systems: ROS unobtainable: Yes unobtainable due to medical condition PMFSH Past Medical History Medical History (Updated 03/21/23 @ 19:42 by Delfina Lucero APRN) Aphasia COPD (chronic obstructive pulmonary disease) Dysphagia Esophageal diverticulum Expressive aphasia Gastroparesis Gastrostomy tube dependent History of BPH History of multiple strokes Hyponatremia Iron deficiency anemia Malfunction of gastrostomy tube Seizure disorder Vascular dementia with psychotic disturbance Surgical History Surgical History Gastrostomy tube in place History of left above knee amputation Tracheostomy in place Family History Family History Other Unknown family medical history Social History Social History Social History: Code status: Full code Surrogate decision maker: Sister Smoking status: Unknown if ever smoked Alcohol intake: unknown Substance use: unknown Substance use type: does not use Spiritual care concerns: No Meds Home Medications and Allergies Home Medications Medication Instructions Recorded Confirmed Type atorvastatin 40 mg tablet 40 mg feeding tube QHS 11/14/22 03/21/23 History folic acid 1 mg tablet 1 mg feeding tube DAILY 11/14/22 03/21/23 History lacosamide 200 mg tablet 200 mg feeding tube Q12H 11/14/22 03/21/23 History aspirin 81 mg chewable tablet 81 mg feeding tube DAILY 11/15/22 03/21/23 History metoprolol tartrate 25 mg tablet 25 mg feeding tube Q12H 12/18/22 03/21/23 History polyethylene glycol 3350 17 17 g feeding tube BID 12/18/22 03/21/23 History gram/dose oral powder bisacodyl 10 mg rectal suppository 10 mg RECTAL DAILY PRN Constipation 02/11/23 03/21/23 History magnesium citrate (Citroma oral 296 ml feeding tube DAILY PRN 02/11/23 03/21/23 History solution) Constipation magnesium hydroxide 400 mg/5 mL 30 ml feeding tube HS PRN 02/11/23 03/21/23 History oral suspension (Milk of Magnesia) Constipation sennosides 8.6 mg tablet (senna) 8.6 mg feeding tube HS PRN 02/11/23 03/21/23 History Constipation sodium phosphates 19 gram-7 197 ml RECTAL ONCE 02/11/23 03/21/23 History gram/118 mL enema (Fleet Enema) thiamine HCl (vitamin B1) 100 mg 100 mg feeding tube DAILY 02/11/23 03/21/23 History tablet acetaminophen 650 mg tablet 650 mg PO Q6H PRN Pain 03/21/23 03/21/23 History calcium carbonate 500 mg/5 mL 1,250 mg PO Q6H PRN gerd 03/21/23 03/21/23 History calcium (1,250 mg/5 mL) oral suspension clobazam 10 mg tablet 15 mg feeding tube BID 03/21/23 03/21/23 History famotidine 20 mg tablet 20 mg feeding tube BID 03/21/23 03/21/23 History levetiracetam 100 mg/mL oral 2,000 mg PO BID 03/21/23 03/21/23 History solution (Keppra) midazolam 5 mg/spray (0.1 mL) 5 mg intranasal ONCE PRN Seizures 03/21/23 03/21/23 H
[2023-03-25] MEDS: LIDOCAINE HCL 1% LOCAL INJ 2 ML AMPUL 5 ML INFILTRATE (15:40)
[2023-03-25] MEDS: ATORVASTATIN 40 MG TABLET FEED TUBE (20:53)
[2023-03-25] MEDS: SALINE LOCK FLUSH 10 ML IV PUSH (20:54)
[2023-03-25 23:52] LABS: Vancomycin Trough 15.1 ug/mL (10.0-20.0)
[2023-03-26] VITALS (31 sets, daily range): BP systolic 117–162; BP diastolic 66–87; PULSE 82–106; RESP 20–28; TEMP 36.6–37.3; O2SAT 93–100
[2023-03-26] MEDS: MEROPENEM 1 GM/NS 100 ML 1 GM/100 ML BAG IVPB ×3 (00:04→18:52)
[2023-03-26] MEDS: ACETYLCYSTEINE 20% INHAL SOLN 800 MG/4 ML VIAL 200 MG INHALATION ×3 (00:05→16:40)
[2023-03-26] MEDS: ALBUTEROL SULFATE NEB 2.5 MG/3 ML INH INHALATION ×6 (00:05→19:46)
[2023-03-26] MEDS: VALPROIC ACID LIQ 250 MG/5 ML ORAL SOLUTION UDC 500 MG PO ×4 (00:05→18:52)
[2023-03-26 05:00] LABS: Basophils Percent Auto 0.3 % (0.2-1.2); Eosinophils Absolute Auto 0.4 K/mm3 (0-0.3); Eosinophils Percent Auto 7.5 % (0-4.4); Hematocrit 31.3 % (42.0-52.0); Hemoglobin 10.1 g/dL (14.0-18.0); Immature Granulocyte Absolute 0.01 K/mm3 (0.00-0.031); Immature Granulocyte Percent A 0.2 % (0-0.5); Lymphocytes Absolute Auto 1.77 K/mm3 (0.9-3.2); Lymphocytes Percent Auto 30.1 % (18.3-44.2); Mean Corpuscular HGB Conc 32.3 g/dl (32-36); Mean Corpuscular Hemoglobin 31.2 pg (26-34); Mean Corpuscular Volume 96.6 fl (80-100); Mean Platelet Volume 11.9 fl (7.4-10.4); Monocytes Percent Auto 17.7 % (2.6-8.5); Neutrophils Absolute Auto 2.6 K/mm3 (1.3-6.7); Neutrophils Percent Auto 44.2 % (45.5-73.1); Platelet Count Result 149 k/mm3 (150-375); Red Blood Count 3.24 M/mm3 (4.6-6.20); Red Cell Distribution Width 14.2 % (11.5-14.5); White Blood Count 5.9 K/mm3 (4.5-10.0)
[2023-03-26 05:10] LABS: Alanine Aminotransferase 22 U/L (6-50); Albumin Level 2.8 g/dL (3.5-5.1); Alkaline Phosphatase 87 U/L (38-126); Anion Gap 1 mmol/L (8-16); Aspartate Amino Transferase 33 U/L (17-59); Bilirubin,Total 0.3 mg/dL (0.2-1.3); Blood Urea Nitrogen 7 mg/dL (9-20); Calcium 9.2 mg/dL (8.4-10.2); Carbon Dioxide 34 mmol/L (22-30); Chloride 104 mmol/L (98-107); Estimated CRCL calculation 146 ml/min; Estimated Glomerular Filt Rate > 60; Glucose 121 mg/dL (65-110); Potassium 3.7 mmol/L (3.4-5.0); Sodium 139 mmol/L (137-145)
[2023-03-26] MEDS: SALINE LOCK FLUSH 10 ML IV PUSH ×3 (05:38→21:36)
[2023-03-26] MEDS: levETIRAcetam ORAL SOL 500 MG/5 ML UDC 2000 MG FEED TUBE ×2 (08:54→21:35)
[2023-03-26] MEDS: PANTOPRAZOLE SODIUM IV 40 MG VIAL IV PUSH (08:55)
[2023-03-26] MEDS: ASPIRIN 81 MG CHEWABLE TABLET FEED TUBE (08:55)
[2023-03-26] MEDS: THIAMINE HCL 100 MG TABLET FEED TUBE (08:55)
[2023-03-26] MEDS: cloBAZam (*CRX) 10 MG TABLET FEED TUBE ×2 (08:55→18:52)
[2023-03-26] MEDS: LACOSAMIDE (*CRX) 200 MG TABLET FEED TUBE ×2 (08:55→21:36)
[2023-03-26] MEDS: CLOBAZAM 5 MG FEED TUBE ×2 (08:55→18:52)
[2023-03-26] MEDS: polyethylene glycoL 3350 17 GM POWD.PACK FEED TUBE ×2 (08:55→18:52)
[2023-03-26] MEDS: FAMOTIDINE 20 MG TABLET FEED TUBE ×2 (08:55→18:52)
[2023-03-26] MEDS: FOLIC ACID 1 MG TABLET FEED TUBE (08:55)
[2023-03-26] MEDS: METOPROLOL TARTRATE 25 MG TABLET FEED TUBE ×2 (08:55→21:36)
--- NOTE | 2023-03-26 10:08 | PM.IMPN ---
Progress Note: A&P Assessment and Plan (1) Atelectasis of right lung: Code(s): J98.11 - Atelectasis Status: Acute Assessment and Plan: Right lung extensive atelectasis likely from mucus plugging. Pulmonology consulted. Mucolytics and pulmonary toilet with frequent suctioning ordered. Chest CT ordered. May require bronchoscopy. Tracheostomy already in place. 03/23: Resolution of collapsed lung after bronchoscopy. May titrate down on oxygen as tolerated 03/24: Course, diminished right sided lung sounds. CXR with opacity, atelactesis vs pneumonia. Patient being treated for previous sputum culture. 03/25: Diminished right lung sounds, coarse sounding. Hourly suction ordered per Pulmonary. Trach changed to 7.5 Shiley at bedside by ENT at request of Pulmonary for better access to bronch again if needed. 03/26: Trach is actually size 6 Shiley, 7.5 mm inner diameter. It was incorrectly documented yesterday by me. (2) Acute and chronic respiratory failure: Qualifiers: Respiratory failure complication: hypoxia Qualified Code(s): J96.21 - Acute and chronic respiratory failure with hypoxia Code(s): J96.20 - Acute and chronic respiratory failure, unspecified whether with hypoxia or hypercapnia Status: Acute Assessment and Plan: Acute exacerbation hypoxemic respiratory failure high-flow oxygenation through trach collar in place. Frequent suctioning. Mucolytics. Pulmonary toilet. Current IMU status. 03/25: Added Vest CPT to help mobilize secretions 03/26: Flow rate decreased to 30 LPM trach collar (3) Tracheostomy in place: Code(s): Z93.0 - Tracheostomy status Status: Acute Assessment and Plan: See 1 and 2 03/25: Bedside trach change to 6 Shiley with 7.5 mm inner cannulas (4) Seizure disorder: Code(s): G40.909 - Epilepsy, unspecified, not intractable, without status epilepticus Status: Chronic Assessment and Plan: Resume home medications, no current seizure activity noted 03/25: IV antibiotics changed to Meropenum which interferes with valproate. RN aware to monitor for seizure activity. PRN Ativan ordered 03/26: No reported convulsive activity. (5) Aphasia: Code(s): R47.01 - Aphasia Status: Chronic Assessment and Plan: Unable to get further information on HPI/ROS due to chronic aphasia. Tracheostomy in place. G-tube dependent. (6) Hypoxia: Code(s): R09.02 - Hypoxemia Status: Acute Assessment and Plan: See 1 and 2 (7) Gastrostomy tube dependent: Code(s): Z93.1 - Gastrostomy status Status: Acute Assessment and Plan: Patient is G-tube dependent. Dietitian consult for tube feeding resumption. Medications per G-tube or IV. (8) Hyponatremia: Code(s): E87.1 - Hypo-osmolality and hyponatremia Status: Acute Assessment and Plan: 03/23: Mildly decreased sodium level at 132 which is comparable to prior results during episodes of acute illness. IV fluids ordered at this time. Resume tube feed diet. 03/24: Improved sodium to 138. IV fluids discontinued due to concern for fluid overload. Patient on tube feeds with flushes. 03/25: Resolved. Sodium 140 today. 03/26: Resolved. Sodium 139 today. Plan DVT prophylaxis with SCDs GI prophylaxis not indicated Code status full code Time Spent With Patient Time with patient: 25 - 35 minutes Subjective Date/time seen: 03/26/23 10:08 Interval history: 03/23: Patient underwent therapeutic bronchoscopy today with improvement in right lung atelectasis. Patient has copius secretions, culture positive for staph aureus (presumably MRSA) as well as pseudomonas. He is on trach collar 40 LPM, FiO2 50%. IV antibiotics per previous culture sensitivities at this time. He will awaken and shake head yes/no. Work of breathing significantly improved. Expiratory Rub noted on auscultation or right lung with
--- NOTE | 2023-03-26 12:52 | PM.PNPUL ---
Progress Note: A&P Assessment and Plan (1) Pneumonia: Qualifiers: Laterality: right Lung location: unspecified part of lung Pneumonia type: due to unspecified organism Qualified Code(s): J18.9 - Pneumonia, unspecified organism Code(s): J18.9 - Pneumonia, unspecified organism Status: Acute Assessment and Plan: 63-year-old man with chronic respiratory failure, status post permanent tracheostomy, peg tube placement, resident of a local jail was brought in with respiratory distress hypoxemia related to retention of bronchial secretions with some right lung atelectasis and new right lower lobe consolidation due to pneumonia.? He had increased amount of bronchial secretions and has been on antibiotics along with aggressive pulmonary toilet.? He underwent therapeutic bronchoscopy 03/24/23; Bronchoscopy showed increased amount of thick yellow secretions lower trachea right mainstem bronchus. The right bronchial tree appeared erythematous edematous. Bronchial washings were sent for routine blood cultures. Since yesterday the chest x-ray showing inflated right lung, as well as small effusions bilaterally right greater than left. He is growing resistant bacteria MRSA and Pseudomonas. Pseudomonas intermediate to ceftazidime. Staph aureus sensitive to oral medications. Dr Austin discussed with Infectious Disease pharmacist, changed antibiotics to Meropenem in place of ceftazidime for better coverage of Pseudomonas. He continued another day with vancomycin, can switch to oral medication as discussed with Infectious Disease pharmacist. Today's CXR is improved with placement of larger tracheostomy. I appreciate Dr Goode's help. Continue with aggressive pulmonary toilet, suctioning, nebulized short-acting bronchodilators and nebulized mucolytic agents. (2) Atelectasis of right lung: Code(s): J98.11 - Atelectasis Status: Acute (3) Tracheostomy in place: Code(s): Z93.0 - Tracheostomy status Status: Acute (4) Chronic respiratory failure with hypoxia: Code(s): J96.11 - Chronic respiratory failure with hypoxia Status: Acute Plan He is improving with a larger trach, having less problems keeping airway clear. Subjective Date/time seen: 03/26/23 12:52 Interval history: hospital follow up: Bi Tabor is a 63-year-old man with a permanent trach, recurrent right lung collapse, had a therapeutic bronchoscopy 03/24 Dr Navarro Sputum is growing Pseudomonas and MRSA from 03/21 03/24 therapeutic bronchoscopy 03/25 he had his tracheostomy changed in the OR by Dr Goode 03/26 he had Lasix 40 mg, diuresed 2 L urine; O2 requirement is 35% to 40% trach collar, saturaiton 98% DATA * 03/26/23 CXR - Improvement of right lung atelectasis and resolution of rightward shift of heart and mediastinum since 03/25/2023 Residual right lower lung infiltrate or atelectasis and left lower lung infiltrate or atelectasis are still present. Congestive changes Tracheostomy tube in satisfactory position? BETTER TODAY * 03/25 CXR RIGHT SIDE COLLAPSED Review of Systems Review of Systems: ROS unobtainable: Yes unobtainable due to medical condition (stroke, non verbal) Exam Narrative: GENERAL APPEARANCE: Well developed, well nourished, awake middle-age man with permanent tracheostomy, and aphasia. He is not respiratory distress. He does not look septic. HEENT: Sclerae anicteric and conjunctivae pink and moist. Extraocular movements were intact and pupils were equal. Dry oral mucosa. LUNGS: Equal air entry, no rhonchi. CARDIAC: There was a regular rate and rhythm without any murmurs, gallops, rubs. EXTREMITIES: Left above knee amputation NEUROLOGIC: Appears awake, flaccid upper extremities, opening eyes to verbal commands. He is able to squeeze right hand 3+/5, left hand barely twitches when I ask him to squeeze left hand
[2023-03-26] MEDS: FUROSEMIDE INJ 40 MG/4 ML VIAL IV PUSH (13:05)
[2023-03-26] MEDS: ATORVASTATIN 40 MG TABLET FEED TUBE (21:36)
[2023-03-27] VITALS (30 sets, daily range): BP systolic 125–150; BP diastolic 70–75; PULSE 78–104; RESP 18–28; TEMP 36.2–37; O2SAT 94–100
[2023-03-27] MEDS: ACETYLCYSTEINE 20% INHAL SOLN 800 MG/4 ML VIAL 200 MG INHALATION ×3 (00:19→15:38)
[2023-03-27] MEDS: ALBUTEROL SULFATE NEB 2.5 MG/3 ML INH INHALATION ×6 (00:19→21:15)
[2023-03-27] MEDS: VALPROIC ACID LIQ 250 MG/5 ML ORAL SOLUTION UDC 500 MG PO ×4 (00:49→18:10)
[2023-03-27] MEDS: MEROPENEM 1 GM/NS 100 ML 1 GM/100 ML BAG IVPB ×3 (00:49→18:10)
[2023-03-27] MEDS: SALINE LOCK FLUSH 20 ML IV PUSH (06:13)
[2023-03-27] MEDS: SALINE LOCK FLUSH 10 ML IV PUSH ×3 (06:13→21:26)
[2023-03-27 06:39] LABS: Basophils Percent Auto 0.4 % (0.2-1.2); Eosinophils Absolute Auto 0.4 K/mm3 (0-0.3); Eosinophils Percent Auto 5.4 % (0-4.4); Hematocrit 32.9 % (42.0-52.0); Hemoglobin 10.5 g/dL (14.0-18.0); Immature Granulocyte Absolute 0.04 K/mm3 (0.00-0.031); Immature Granulocyte Percent A 0.5 % (0-0.5); Lymphocytes Absolute Auto 2.38 K/mm3 (0.9-3.2); Lymphocytes Percent Auto 31.3 % (18.3-44.2); Mean Corpuscular HGB Conc 31.9 g/dl (32-36); Mean Corpuscular Hemoglobin 30.9 pg (26-34); Mean Corpuscular Volume 96.8 fl (80-100); Mean Platelet Volume 12.3 fl (7.4-10.4); Monocytes Absolute Auto 1.1 K/mm3 (0.1-0.6); Monocytes Percent Auto 14.7 % (2.6-8.5); Neutrophils Absolute Auto 3.6 K/mm3 (1.3-6.7); Neutrophils Percent Auto 47.7 % (45.5-73.1); Platelet Count Result 180 k/mm3 (150-375); Red Cell Distribution Width 14.3 % (11.5-14.5); White Blood Count 7.6 K/mm3 (4.5-10.0)
[2023-03-27 06:51] LABS: Alanine Aminotransferase 38 U/L (6-50); Albumin Level 2.9 g/dL (3.5-5.1); Alkaline Phosphatase 95 U/L (38-126); Anion Gap 4 mmol/L (8-16); Aspartate Amino Transferase 52 U/L (17-59); Bilirubin,Total 0.3 mg/dL (0.2-1.3); Blood Urea Nitrogen 9 mg/dL (9-20); Calcium 9.1 mg/dL (8.4-10.2); Carbon Dioxide 33 mmol/L (22-30); Chloride 102 mmol/L (98-107); Estimated CRCL calculation 146 ml/min; Estimated Glomerular Filt Rate > 60; Glucose 131 mg/dL (65-110); Potassium 3.6 mmol/L (3.4-5.0); Sodium 139 mmol/L (137-145)
[2023-03-27] MEDS: THIAMINE HCL 100 MG TABLET FEED TUBE (11:46)
[2023-03-27] MEDS: CLOBAZAM 5 MG FEED TUBE ×2 (11:46→18:10)
[2023-03-27] MEDS: METOPROLOL TARTRATE 25 MG TABLET FEED TUBE ×2 (11:46→21:25)
[2023-03-27] MEDS: FAMOTIDINE 20 MG TABLET FEED TUBE ×2 (11:47→18:10)
[2023-03-27] MEDS: FUROSEMIDE INJ 40 MG/4 ML VIAL IV PUSH (11:47)
[2023-03-27] MEDS: levETIRAcetam ORAL SOL 500 MG/5 ML UDC 2000 MG FEED TUBE ×2 (11:47→21:25)
[2023-03-27] MEDS: polyethylene glycoL 3350 17 GM POWD.PACK FEED TUBE ×2 (11:47→18:10)
[2023-03-27] MEDS: SULFAMETHOXAZOLE/TRIMETHOPRIM 800/160 MG DS TABLET 2 TAB PO ×2 (11:47→21:25)
[2023-03-27] MEDS: ASPIRIN 81 MG CHEWABLE TABLET FEED TUBE (11:47)
[2023-03-27] MEDS: PANTOPRAZOLE SODIUM IV 40 MG VIAL IV PUSH (11:47)
[2023-03-27] MEDS: LACOSAMIDE (*CRX) 200 MG TABLET FEED TUBE ×2 (11:47→21:24)
[2023-03-27] MEDS: FOLIC ACID 1 MG TABLET FEED TUBE (11:47)
[2023-03-27] MEDS: cloBAZam (*CRX) 10 MG TABLET FEED TUBE ×2 (11:48→18:10)
--- NOTE | 2023-03-27 13:50 | PM.IMPN ---
Progress Note: A&P Assessment and Plan (1) Atelectasis of right lung: Code(s): J98.11 - Atelectasis Status: Acute Assessment and Plan: Right lung extensive atelectasis likely from mucus plugging. Pulmonology consulted. Mucolytics and pulmonary toilet with frequent suctioning ordered. Chest CT ordered. May require bronchoscopy. Tracheostomy already in place. 03/23: Resolution of collapsed lung after bronchoscopy. May titrate down on oxygen as tolerated 03/24: Course, diminished right sided lung sounds. CXR with opacity, atelactesis vs pneumonia. Patient being treated for previous sputum culture. 03/25: Diminished right lung sounds, coarse sounding. Hourly suction ordered per Pulmonary. Trach changed to 7.5 Shiley at bedside by ENT at request of Pulmonary for better access to bronch again if needed. 03/26: Trach is actually size 6 Shiley, 7.5 mm inner diameter. It was incorrectly documented yesterday by me. 03/27: Improved lung sounds, improved aeration. CXR ordered for AM. (2) Acute and chronic respiratory failure: Qualifiers: Respiratory failure complication: hypoxia Qualified Code(s): J96.21 - Acute and chronic respiratory failure with hypoxia Code(s): J96.20 - Acute and chronic respiratory failure, unspecified whether with hypoxia or hypercapnia Status: Acute Assessment and Plan: Acute exacerbation hypoxemic respiratory failure high-flow oxygenation through trach collar in place. Frequent suctioning. Mucolytics. Pulmonary toilet. Current IMU status. 03/25: Added Vest CPT to help mobilize secretions 03/26: Flow rate decreased to 30 LPM trach collar 03/27: Flow rate decreased to 25 LPM after rounds (3) Tracheostomy in place: Code(s): Z93.0 - Tracheostomy status Status: Acute Assessment and Plan: See 1 and 2 03/25: Bedside trach change to 6 Shiley with 7.5 mm inner cannulas (4) Seizure disorder: Code(s): G40.909 - Epilepsy, unspecified, not intractable, without status epilepticus Status: Chronic Assessment and Plan: Resume home medications, no current seizure activity noted 03/25: IV antibiotics changed to Meropenum which interferes with valproate. RN aware to monitor for seizure activity. PRN Ativan ordered 03/26: No reported convulsive activity. 03/27: One episode of possible eye diverted activity for 45 seconds yesterday. (5) Aphasia: Code(s): R47.01 - Aphasia Status: Chronic Assessment and Plan: Unable to get further information on HPI/ROS due to chronic aphasia. Tracheostomy in place. G-tube dependent. (6) Hypoxia: Code(s): R09.02 - Hypoxemia Status: Acute Assessment and Plan: See 1 and 2 (7) Gastrostomy tube dependent: Code(s): Z93.1 - Gastrostomy status Status: Acute Assessment and Plan: Patient is G-tube dependent. Dietitian consult for tube feeding resumption. Medications per G-tube or IV. (8) Hyponatremia: Code(s): E87.1 - Hypo-osmolality and hyponatremia Status: Acute Assessment and Plan: 03/23: Mildly decreased sodium level at 132 which is comparable to prior results during episodes of acute illness. IV fluids ordered at this time. Resume tube feed diet. 03/24: Improved sodium to 138. IV fluids discontinued due to concern for fluid overload. Patient on tube feeds with flushes. 03/25: Resolved. Sodium 140 today. 03/26: Resolved. Sodium 139 today. Resolved Plan DVT prophylaxis with SCDs GI prophylaxis not indicated Code status full code Time Spent With Patient Time with patient: 25 - 35 minutes Subjective Date/time seen: 03/27/23 13:50 Interval history: 03/23: Patient underwent therapeutic bronchoscopy today with improvement in right lung atelectasis. Patient has copius secretions, culture positive for staph aureus (presumably MRSA) as well as pseudomonas. He is on trach collar 40 LPM,
--- NOTE | 2023-03-27 15:22 | PM.PNPUL ---
Progress Note: A&P Assessment and Plan (1) Pneumonia: Qualifiers: Laterality: right Lung location: unspecified part of lung Pneumonia type: due to unspecified organism Qualified Code(s): J18.9 - Pneumonia, unspecified organism Code(s): J18.9 - Pneumonia, unspecified organism Status: Acute Assessment and Plan: 63-year-old man with chronic respiratory failure, status post permanent tracheostomy, peg tube placement, resident of a local detention was brought in with respiratory distress hypoxemia related to retention of bronchial secretions with some right lung atelectasis and new right lower lobe consolidation due to pneumonia.? He had increased amount of bronchial secretions and has been on antibiotics along with aggressive pulmonary toilet.? He underwent therapeutic bronchoscopy 03/24/23; Bronchoscopy showed increased amount of thick yellow secretions lower trachea right mainstem bronchus. The right bronchial tree appeared erythematous edematous. Bronchial washings were sent for routine blood cultures. Since yesterday the chest x-ray showing inflated right lung, as well as small effusions bilaterally right greater than left. He is growing resistant bacteria MRSA and Pseudomonas. Pseudomonas intermediate to ceftazidime. Staph aureus sensitive to oral medications. Dr Austin discussed with Infectious Disease pharmacist, changed antibiotics to Meropenem in place of ceftazidime for better coverage of Pseudomonas. He continued another day with vancomycin, can switch to oral medication as discussed with Infectious Disease pharmacist. Today's CXR is improved with placement of larger tracheostomy. I appreciate Dr Goode's help. Continue with aggressive pulmonary toilet, suctioning, nebulized short-acting bronchodilators and nebulized mucolytic agents. (2) Atelectasis of right lung: Code(s): J98.11 - Atelectasis Status: Acute (3) Tracheostomy in place: Code(s): Z93.0 - Tracheostomy status Status: Acute (4) Chronic respiratory failure with hypoxia: Code(s): J96.11 - Chronic respiratory failure with hypoxia Status: Acute Plan He is improving with a larger trach, having less problems keeping airway clear. Subjective Date/time seen: 03/27/23 15:22 Interval history: hospital follow up: Bi Tabor is a 63-year-old man with a permanent trach, recurrent right lung collapse, had a therapeutic bronchoscopy 03/24 Dr Navarro Sputum is growing Pseudomonas and MRSA from 03/21 03/24 therapeutic bronchoscopy 03/25 he had his tracheostomy changed in the OR by Dr Goode 03/26 he had Lasix 40 mg, diuresed 2 L urine; O2 requirement is 35% to 40% trach collar, saturation 98% 03/27 He is not in distress; he is DATA * 03/26/23 CXR - Improvement of right lung atelectasis and resolution of rightward shift of heart and mediastinum since 03/25/2023 Residual right lower lung infiltrate or atelectasis and left lower lung infiltrate or atelectasis are still present. Congestive changes Tracheostomy tube in satisfactory position? BETTER TODAY * 03/25 CXR RIGHT SIDE COLLAPSED Review of Systems Review of Systems: All systems reviewed & are unremarkable except as noted in HPI and below Exam Narrative: GENERAL APPEARANCE: Well developed, well nourished, awake middle-age man with permanent tracheostomy, and aphasia. He is not respiratory distress. He does not look septic. HEENT: Sclerae anicteric and conjunctivae pink and moist. Extraocular movements were intact and pupils were equal. Dry oral mucosa. LUNGS: Equal air entry, no rhonchi. CARDIAC: There was a regular rate and rhythm without any murmurs, gallops, rubs. EXTREMITIES: Left above knee amputation NEUROLOGIC: Appears awake, flaccid upper extremities, opening eyes to verbal commands. He is able to squeeze right hand 3+/5, left hand barely twitches when I
[2023-03-27] MEDS: ATORVASTATIN 40 MG TABLET FEED TUBE (21:24)
[2023-03-28] VITALS (36 sets, daily range): BP systolic 98–128; BP diastolic 63–75; PULSE 24–111; RESP 16–97; TEMP 36.2–36.8; O2SAT 95–101
[2023-03-28] MEDS: ALBUTEROL SULFATE NEB 2.5 MG/3 ML INH INHALATION ×6 (00:40→20:15)
[2023-03-28] MEDS: ACETYLCYSTEINE 20% INHAL SOLN 800 MG/4 ML VIAL 200 MG INHALATION ×3 (00:41→16:58)
[2023-03-28] MEDS: VALPROIC ACID LIQ 250 MG/5 ML ORAL SOLUTION UDC 500 MG PO ×5 (01:05→23:45)
[2023-03-28] MEDS: MEROPENEM 1 GM/NS 100 ML 1 GM/100 ML BAG IVPB ×3 (01:05→17:54)
[2023-03-28 04:58] LABS: Basophils Percent Auto 0.3 % (0.2-1.2); Eosinophils Absolute Auto 0.2 K/mm3 (0-0.3); Eosinophils Percent Auto 2.1 % (0-4.4); Hematocrit 33.6 % (42.0-52.0); Immature Granulocyte Absolute 0.04 K/mm3 (0.00-0.031); Immature Granulocyte Percent A 0.4 % (0-0.5); Lymphocytes Absolute Auto 2.97 K/mm3 (0.9-3.2); Lymphocytes Percent Auto 26.5 % (18.3-44.2); Mean Corpuscular HGB Conc 32.7 g/dl (32-36); Mean Corpuscular Hemoglobin 31.5 pg (26-34); Mean Corpuscular Volume 96.3 fl (80-100); Mean Platelet Volume 12.2 fl (7.4-10.4); Monocytes Absolute Auto 1.3 K/mm3 (0.1-0.6); Monocytes Percent Auto 11.2 % (2.6-8.5); Neutrophils Absolute Auto 6.7 K/mm3 (1.3-6.7); Neutrophils Percent Auto 59.5 % (45.5-73.1); Platelet Count Result 219 k/mm3 (150-375); Red Blood Count 3.49 M/mm3 (4.6-6.20); Red Cell Distribution Width 14.3 % (11.5-14.5); White Blood Count 11.2 K/mm3 (4.5-10.0)
[2023-03-28 05:10] LABS: Alanine Aminotransferase 49 U/L (6-50); Albumin Level 3.1 g/dL (3.5-5.1); Alkaline Phosphatase 96 U/L (38-126); Anion Gap 3 mmol/L (8-16); Aspartate Amino Transferase 52 U/L (17-59); Bilirubin,Total 0.3 mg/dL (0.2-1.3); Blood Urea Nitrogen 11 mg/dL (9-20); Calcium 9.2 mg/dL (8.4-10.2); Carbon Dioxide 30 mmol/L (22-30); Chloride 104 mmol/L (98-107); Estimated CRCL calculation 153 ml/min; Estimated Glomerular Filt Rate > 60; Glucose 130 mg/dL (65-110); Potassium 4.2 mmol/L (3.4-5.0); Sodium 137 mmol/L (137-145)
[2023-03-28] MEDS: SALINE LOCK FLUSH 10 ML IV PUSH ×3 (06:46→21:36)
[2023-03-28] MEDS: polyethylene glycoL 3350 17 GM POWD.PACK FEED TUBE ×2 (09:32→17:54)
[2023-03-28] MEDS: levETIRAcetam ORAL SOL 500 MG/5 ML UDC 2000 MG FEED TUBE ×2 (09:32→21:34)
[2023-03-28] MEDS: PANTOPRAZOLE SODIUM IV 40 MG VIAL IV PUSH (09:32)
[2023-03-28] MEDS: FAMOTIDINE 20 MG TABLET FEED TUBE ×2 (09:33→17:54)
[2023-03-28] MEDS: SULFAMETHOXAZOLE/TRIMETHOPRIM 800/160 MG DS TABLET 2 TAB PO ×2 (09:33→21:35)
[2023-03-28] MEDS: ASPIRIN 81 MG CHEWABLE TABLET FEED TUBE (09:33)
[2023-03-28] MEDS: FOLIC ACID 1 MG TABLET FEED TUBE (09:33)
[2023-03-28] MEDS: LACOSAMIDE (*CRX) 200 MG TABLET FEED TUBE ×2 (09:33→21:35)
[2023-03-28] MEDS: THIAMINE HCL 100 MG TABLET FEED TUBE (09:33)
[2023-03-28] MEDS: FUROSEMIDE INJ 40 MG/4 ML VIAL IV PUSH (09:33)
[2023-03-28] MEDS: METOPROLOL TARTRATE 25 MG TABLET FEED TUBE ×2 (09:33→21:35)
[2023-03-28] MEDS: CLOBAZAM 5 MG FEED TUBE ×2 (09:33→17:54)
[2023-03-28] MEDS: cloBAZam (*CRX) 10 MG TABLET FEED TUBE ×2 (09:33→17:54)
--- NOTE | 2023-03-28 10:14 | PM.IMPN ---
Progress Note: A&P Assessment and Plan (1) Atelectasis of right lung: Code(s): J98.11 - Atelectasis Status: Acute Assessment and Plan: Right lung extensive atelectasis likely from mucus plugging. Pulmonology consulted. Mucolytics and pulmonary toilet with frequent suctioning ordered. Chest CT ordered. May require bronchoscopy. Tracheostomy already in place. 03/23: Resolution of collapsed lung after bronchoscopy. May titrate down on oxygen as tolerated 03/24: Course, diminished right sided lung sounds. CXR with opacity, atelactesis vs pneumonia. Patient being treated for previous sputum culture. 03/25: Diminished right lung sounds, coarse sounding. Hourly suction ordered per Pulmonary. Trach changed to 7.5 Shiley at bedside by ENT at request of Pulmonary for better access to bronch again if needed. 03/26: Trach is actually size 6 Shiley, 7.5 mm inner diameter. It was incorrectly documented yesterday by me. 03/27: Improved lung sounds, improved aeration. CXR ordered for AM. 03/28: Stable, no recollapse of lung (2) Acute and chronic respiratory failure: Qualifiers: Respiratory failure complication: hypoxia Qualified Code(s): J96.21 - Acute and chronic respiratory failure with hypoxia Code(s): J96.20 - Acute and chronic respiratory failure, unspecified whether with hypoxia or hypercapnia Status: Acute Assessment and Plan: Acute exacerbation hypoxemic respiratory failure high-flow oxygenation through trach collar in place. Frequent suctioning. Mucolytics. Pulmonary toilet. Current IMU status. 03/25: Added Vest CPT to help mobilize secretions 03/26: Flow rate decreased to 30 LPM trach collar 03/27: Flow rate decreased to 25 LPM after rounds 03/28: Flow rate decreased to 15 LPM after rounds which is base trach collar on this device (3) Tracheostomy in place: Code(s): Z93.0 - Tracheostomy status Status: Acute Assessment and Plan: See 1 and 2 03/25: Bedside trach change to 6 Shiley with 7.5 mm inner cannulas (4) Seizure disorder: Code(s): G40.909 - Epilepsy, unspecified, not intractable, without status epilepticus Status: Chronic Assessment and Plan: Resume home medications, no current seizure activity noted 03/25: IV antibiotics changed to Meropenum which interferes with valproate. RN aware to monitor for seizure activity. PRN Ativan ordered 03/26: No reported convulsive activity. 03/27: One episode of possible eye diverted activity for 45 seconds yesterday. 03/28: No reported convulsive activity (5) Aphasia: Code(s): R47.01 - Aphasia Status: Chronic Assessment and Plan: Unable to get further information on HPI/ROS due to chronic aphasia. Tracheostomy in place. G-tube dependent. (6) Hypoxia: Code(s): R09.02 - Hypoxemia Status: Acute Assessment and Plan: See 1 and 2 (7) Gastrostomy tube dependent: Code(s): Z93.1 - Gastrostomy status Status: Acute Assessment and Plan: Patient is G-tube dependent. Dietitian consult for tube feeding resumption. Medications per G-tube or IV. (8) Hyponatremia: Code(s): E87.1 - Hypo-osmolality and hyponatremia Status: Resolved Assessment and Plan: 03/23: Mildly decreased sodium level at 132 which is comparable to prior results during episodes of acute illness. IV fluids ordered at this time. Resume tube feed diet. 03/24: Improved sodium to 138. IV fluids discontinued due to concern for fluid overload. Patient on tube feeds with flushes. 03/25: Resolved. Sodium 140 today. 03/26: Resolved. Sodium 139 today. Resolved Plan DVT prophylaxis with SCDs GI prophylaxis not indicated Code status full code Time Spent With Patient Time with patient: 25 - 35 minutes Subjective Date/time seen: 03/28/23 10:14 Interval history: 03/23: Patient underwent therapeutic bronchoscopy today with improve
--- NOTE | 2023-03-28 11:00 | PM.PNPUL ---
Progress Note: A&P Assessment and Plan (1) Pneumonia: Qualifiers: Laterality: right Lung location: unspecified part of lung Pneumonia type: due to unspecified organism Qualified Code(s): J18.9 - Pneumonia, unspecified organism Code(s): J18.9 - Pneumonia, unspecified organism Status: Acute Assessment and Plan: 63-year-old man with chronic respiratory failure, status post permanent tracheostomy, peg tube placement, resident of a local assisted was brought in with respiratory distress hypoxemia related to retention of bronchial secretions with some right lung atelectasis and new right lower lobe consolidation due to pneumonia.? He had increased amount of bronchial secretions and has been on antibiotics along with aggressive pulmonary toilet.? He underwent therapeutic bronchoscopy 03/24/23; Bronchoscopy showed increased amount of thick yellow secretions lower trachea right mainstem bronchus. The right bronchial tree appeared erythematous edematous. Bronchial washings were sent for routine blood cultures. Since yesterday the chest x-ray showing inflated right lung, as well as small effusions bilaterally right greater than left. He is growing resistant bacteria MRSA and Pseudomonas. Pseudomonas intermediate to ceftazidime. Staph aureus sensitive to oral medications. Dr Austin discussed with Infectious Disease pharmacist, changed antibiotics to Meropenem in place of ceftazidime for better coverage of Pseudomonas. He continued another day with vancomycin, can switch to oral medication as discussed with Infectious Disease pharmacist. 03/26: Today's CXR is improved with placement of larger tracheostomy. I appreciate Dr Goode's help. Continue with aggressive pulmonary toilet, suctioning, nebulized short-acting bronchodilators and nebulized mucolytic agents. 03/28: Patient is awake mildly words. He is afebrile. White blood cell count 11.2, creatinine 0.4, chest x-ray with minimal right lower lobe volume loss. He is receiving vest therapy 3 times a day. When I ask him to cough he cannot do this. In order to provide him you [facility] has to place him on high-flow machine and he is on 15 L with 26% FiO2 and saturations 94%. Plan: Patient received vancomycin from 03/22 through 03/26 and is now on Septra (Day 7 adequate coverage for MRSA). Patient received ceftazidime from 03/24 through 03/25 and has been on meropenem since 03/25 (day 4 adequate coverage). He is afebrile. White blood cell count 11.2. Will continue Septra and imipenem for now. Depending on patient's clinical status will plan on at least 7 days of imipenem. Will follow with you. (2) Atelectasis of right lung: Code(s): J98.11 - Atelectasis Status: Acute Assessment and Plan: 03/28: He is improving with a larger trach, having less problems keeping airway clear. Q.8 hours, vest therapy t.i.d.. Plan: I will continue albuterol nebulizers q.4 hours, Mucomyst nebulizer q.8 hours and vibratory vest t.i.d. On 11/17/2022 and 02/21/2023: I had recommended a vibratory vest therapy and chest PT q.i.d. and tracheal suction Q 2 hours throughout the day and night at [facility]. Will call [facility] to see if he has a vibratory vest. Subjective Date/time seen: 03/28/23 11:01 Interval history: 03/27/23? 15:22 Interval history: hospital follow up: Bi Tabor is a 63-year-old man with a permanent trach, recurrent right lung collapse, had a therapeutic bronchoscopy 03/24 Dr Navarro Sputum is growing Pseudomonas and MRSA from 03/21 03/24 therapeutic bronchoscopy 03/25 he had his tracheostomy changed/upsized in the OR by Dr Goode 03/26 he had Lasix 40 mg, diuresed 2 L urine; O2 requirement is 35% to 40% trach collar, saturaiton 98% 03/28: Patient is awake mildly words. He is afebrile. White blood cell count 11.2, creatinine 0.4, chest x-ray with minimal right lower lobe volume loss. He is receiving vest therapy 3 times
[2023-03-28] MEDS: ATORVASTATIN 40 MG TABLET FEED TUBE (21:35)
[2023-03-28] MEDS: ACETAMINOPHEN 325 MG TABLET 650 MG FEED TUBE (21:39)
[2023-03-29] VITALS (27 sets, daily range): BP systolic 112–129; BP diastolic 67–79; PULSE 83–108; RESP 16–28; TEMP 36–36.9; O2SAT 92–99
[2023-03-29] MEDS: ACETYLCYSTEINE 20% INHAL SOLN 800 MG/4 ML VIAL 200 MG INHALATION ×2 (00:20→07:33)
[2023-03-29] MEDS: ALBUTEROL SULFATE NEB 2.5 MG/3 ML INH INHALATION ×6 (00:20→20:11)
[2023-03-29] MEDS: MEROPENEM 1 GM/NS 100 ML 1 GM/100 ML BAG IVPB ×3 (00:41→17:08)
[2023-03-29] MEDS: VALPROIC ACID LIQ 250 MG/5 ML ORAL SOLUTION UDC 500 MG PO ×3 (05:03→17:08)
[2023-03-29] MEDS: SALINE LOCK FLUSH 10 ML IV PUSH ×3 (05:04→20:57)
[2023-03-29] MEDS: SULFAMETHOXAZOLE/TRIMETHOPRIM 800/160 MG DS TABLET 2 TAB PO ×2 (09:27→20:56)
[2023-03-29] MEDS: ASPIRIN 81 MG CHEWABLE TABLET FEED TUBE (09:27)
[2023-03-29] MEDS: FOLIC ACID 1 MG TABLET FEED TUBE (09:27)
[2023-03-29] MEDS: FAMOTIDINE 20 MG TABLET FEED TUBE ×2 (09:27→17:08)
[2023-03-29] MEDS: THIAMINE HCL 100 MG TABLET FEED TUBE (09:27)
[2023-03-29] MEDS: LACOSAMIDE (*CRX) 200 MG TABLET FEED TUBE ×2 (09:27→20:56)
[2023-03-29] MEDS: CLOBAZAM 5 MG FEED TUBE ×2 (09:27→17:08)
[2023-03-29] MEDS: cloBAZam (*CRX) 10 MG TABLET FEED TUBE ×2 (09:28→17:08)
[2023-03-29] MEDS: METOPROLOL TARTRATE 25 MG TABLET FEED TUBE ×2 (09:28→20:56)
[2023-03-29] MEDS: levETIRAcetam ORAL SOL 500 MG/5 ML UDC 2000 MG FEED TUBE ×2 (09:28→20:56)
[2023-03-29] MEDS: FUROSEMIDE INJ 40 MG/4 ML VIAL IV PUSH (09:28)
[2023-03-29] MEDS: polyethylene glycoL 3350 17 GM POWD.PACK FEED TUBE (09:28)
[2023-03-29] MEDS: PANTOPRAZOLE SODIUM IV 40 MG VIAL IV PUSH (09:28)
--- NOTE | 2023-03-29 10:31 | PM.PNPUL ---
Progress Note: A&P Assessment and Plan (1) Pneumonia: Qualifiers: Laterality: right Lung location: unspecified part of lung Pneumonia type: due to unspecified organism Qualified Code(s): J18.9 - Pneumonia, unspecified organism Code(s): J18.9 - Pneumonia, unspecified organism Status: Acute Assessment and Plan: 63-year-old man with chronic respiratory failure, status post permanent tracheostomy, peg tube placement, resident of a local custodial was brought in with respiratory distress hypoxemia related to retention of bronchial secretions with some right lung atelectasis and new right lower lobe consolidation due to pneumonia.? He had increased amount of bronchial secretions and has been on antibiotics along with aggressive pulmonary toilet.? He underwent therapeutic bronchoscopy 03/24/23; Bronchoscopy showed increased amount of thick yellow secretions lower trachea right mainstem bronchus. The right bronchial tree appeared erythematous edematous. Bronchial washings were sent for routine blood cultures. Since yesterday the chest x-ray showing inflated right lung, as well as small effusions bilaterally right greater than left. He is growing resistant bacteria MRSA and Pseudomonas. Pseudomonas intermediate to ceftazidime. Staph aureus sensitive to oral medications. Dr Austin discussed with Infectious Disease pharmacist, changed antibiotics to Meropenem in place of ceftazidime for better coverage of Pseudomonas. He continued another day with vancomycin, can switch to oral medication as discussed with Infectious Disease pharmacist. 03/26: Today's CXR is improved with placement of larger tracheostomy. I appreciate Dr Goode's help. Continue with aggressive pulmonary toilet, suctioning, nebulized short-acting bronchodilators and nebulized mucolytic agents. 03/28: Patient is awake mildly words. He is afebrile. White blood cell count 11.2, creatinine 0.4, chest x-ray with minimal right lower lobe volume loss. He is receiving vest therapy 3 times a day. When I ask him to cough he cannot do this. In order to provide him you [facility] has to place him on high-flow machine and he is on 15 L with 26% FiO2 and saturations 94%. Plan: Patient received vancomycin from 03/22 through 03/26 and is now on Septra (Day 7 adequate coverage for MRSA). Patient received ceftazidime from 03/24 through 03/25 and has been on meropenem since 03/25 (day 4 adequate coverage). He is afebrile. White blood cell count 11.2. Will continue Septra and imipenem for now. Depending on patient's clinical status will plan on at least 7 days of imipenem. 03/29: The patient is awake, he is able to mouth words and says no to any respiratory issues. He is able to raise his right hand and attempt to show 2 fingers. He does not move his left hand or his lower extremities. Currently is on humidified air 15 L and 55% FiO2 with saturations 100%. Plan: Patient is on Septra, day 8 adequate coverage for MRSA and meropenem, day 5 of adequate coverage for Pseudomonas. Goal saturation 90-94% and I have spoken with the nurse will try to wean his oxygen down accordingly. Will follow with you. (2) Atelectasis of right lung: Code(s): J98.11 - Atelectasis Status: Acute Assessment and Plan: 03/28: He is improving with a larger trach, having less problems keeping airway clear. Q.8 hours, vest therapy t.i.d.. Plan: I will continue albuterol nebulizers q.4 hours, Mucomyst nebulizer q.8 hours and vibratory vest t.i.d. On 11/17/2022 and 02/21/2023: I had recommended a vibratory vest therapy and chest PT q.i.d. and tracheal suction Q 2 hours throughout the day and night at [facility]. Will call [facility] to see if he has a vibratory vest. 03/29: We called [facility] and the patient is receiving vest therapy q.i.d. at [facility]. Continue albuterol nebs q.4 hours, will discontinue Mucomyst nebulizers today and continue
[2023-03-29 10:51] LABS: Basophils Percent Auto 0.6 % (0.2-1.2); Eosinophils Absolute Auto 0.4 K/mm3 (0-0.3); Hematocrit 33.7 % (42.0-52.0); Hemoglobin 10.7 g/dL (14.0-18.0); Immature Granulocyte Absolute 0.03 K/mm3 (0.00-0.031); Immature Granulocyte Percent A 0.4 % (0-0.5); Lymphocytes Absolute Auto 1.89 K/mm3 (0.9-3.2); Lymphocytes Percent Auto 26.1 % (18.3-44.2); Mean Corpuscular HGB Conc 31.8 g/dl (32-36); Mean Corpuscular Hemoglobin 30.9 pg (26-34); Mean Corpuscular Volume 97.4 fl (80-100); Mean Platelet Volume 11.9 fl (7.4-10.4); Monocytes Absolute Auto 0.9 K/mm3 (0.1-0.6); Monocytes Percent Auto 12.2 % (2.6-8.5); Neutrophils Percent Auto 55.7 % (45.5-73.1); Platelet Count Result 272 k/mm3 (150-375); Red Blood Count 3.46 M/mm3 (4.6-6.20); Red Cell Distribution Width 14.4 % (11.5-14.5); White Blood Count 7.2 K/mm3 (4.5-10.0)
--- NOTE | 2023-03-29 10:52 | PM.IMPN ---
Progress Note: A&P Assessment and Plan (1) Atelectasis of right lung: Code(s): J98.11 - Atelectasis Status: Acute Assessment and Plan: Right lung extensive atelectasis likely from mucus plugging. Pulmonology consulted. Mucolytics and pulmonary toilet with frequent suctioning ordered. Chest CT ordered. May require bronchoscopy. Tracheostomy already in place. 03/23: Resolution of collapsed lung after bronchoscopy. May titrate down on oxygen as tolerated 03/24: Course, diminished right sided lung sounds. CXR with opacity, atelactesis vs pneumonia. Patient being treated for previous sputum culture. 03/25: Diminished right lung sounds, coarse sounding. Hourly suction ordered per Pulmonary. Trach changed to 7.5 Shiley at bedside by ENT at request of Pulmonary for better access to bronch again if needed. 03/26: Trach is actually size 6 Shiley, 7.5 mm inner diameter. It was incorrectly documented yesterday by me. 03/27: Improved lung sounds, improved aeration. CXR ordered for AM. 03/28: Stable, no recollapse of lung 03/29: No breathing problems. Stable on trach collar. Awaiting discharge to retirement after Meropenem infusions completed. (2) Acute and chronic respiratory failure: Qualifiers: Respiratory failure complication: hypoxia Qualified Code(s): J96.21 - Acute and chronic respiratory failure with hypoxia Code(s): J96.20 - Acute and chronic respiratory failure, unspecified whether with hypoxia or hypercapnia Status: Acute Assessment and Plan: Acute exacerbation hypoxemic respiratory failure high-flow oxygenation through trach collar in place. Frequent suctioning. Mucolytics. Pulmonary toilet. Current IMU status. 03/25: Added Vest CPT to help mobilize secretions 03/26: Flow rate decreased to 30 LPM trach collar 03/27: Flow rate decreased to 25 LPM after rounds 03/28: Flow rate decreased to 15 LPM after rounds which is base trach collar on this device 03/29: Trach collar on room air (3) Tracheostomy in place: Code(s): Z93.0 - Tracheostomy status Status: Acute Assessment and Plan: See 1 and 2 03/25: Bedside trach change to 6 Shiley with 7.5 mm inner cannulas (4) Seizure disorder: Code(s): G40.909 - Epilepsy, unspecified, not intractable, without status epilepticus Status: Chronic Assessment and Plan: Resume home medications, no current seizure activity noted 03/25: IV antibiotics changed to Meropenum which interferes with valproate. RN aware to monitor for seizure activity. PRN Ativan ordered 03/26: No reported convulsive activity. 03/27: One episode of possible eye diverted activity for 45 seconds yesterday. 03/28: No reported convulsive activity 03/29: No reported convulsive activity (5) Aphasia: Code(s): R47.01 - Aphasia Status: Chronic Assessment and Plan: Unable to get further information on HPI/ROS due to chronic aphasia. Tracheostomy in place. G-tube dependent. (6) Hypoxia: Code(s): R09.02 - Hypoxemia Status: Acute Assessment and Plan: See 1 and 2 (7) Gastrostomy tube dependent: Code(s): Z93.1 - Gastrostomy status Status: Acute Assessment and Plan: Patient is G-tube dependent. Dietitian consult for tube feeding resumption. Medications per G-tube or IV. (8) Hyponatremia: Code(s): E87.1 - Hypo-osmolality and hyponatremia Status: Resolved Assessment and Plan: 03/23: Mildly decreased sodium level at 132 which is comparable to prior results during episodes of acute illness. IV fluids ordered at this time. Resume tube feed diet. 03/24: Improved sodium to 138. IV fluids discontinued due to concern for fluid overload. Patient on tube feeds with flushes. 03/25: Resolved. Sodium 140 today. 03/26: Resolved. Sodium 139 today. Resolved Plan DVT prophylaxis with SCDs GI prophylaxis not indicated Code status full code
[2023-03-29 11:06] LABS: Alanine Aminotransferase 69 U/L (6-50); Albumin Level 3.4 g/dL (3.5-5.1); Alkaline Phosphatase 102 U/L (38-126); Anion Gap 9 mmol/L (8-16); Aspartate Amino Transferase 63 U/L (17-59); Bilirubin,Total 0.3 mg/dL (0.2-1.3); Blood Urea Nitrogen 14 mg/dL (9-20); Calcium 9.4 mg/dL (8.4-10.2); Carbon Dioxide 25 mmol/L (22-30); Chloride 103 mmol/L (98-107); Estimated CRCL calculation 125 ml/min; Estimated Glomerular Filt Rate > 60; Glucose 111 mg/dL (65-110); Potassium 4.4 mmol/L (3.4-5.0); Sodium 137 mmol/L (137-145)
[2023-03-29] MEDS: ACETAMINOPHEN 325 MG TABLET 650 MG FEED TUBE ×2 (11:08→20:55)
--- NOTE | 2023-03-29 12:04 | PCNFU ---
Nutrition Follow-Up Complete: Inadequate energy intake related to inability to swallow as evidenced by PEG tube, need for full tube feeding Goal:Tolerate tube feeding at goal rate Pt meeting goal, continue with same goal. Pt current nutrition is Jevity 1.5 @ 50ml/hr = 1650kcals, 70g protein, 836ml fluid. Nutrition recommendation: continue with current plan of care Last recorded weight is 69 kg. Bowel Motility: +BM 03/28 Labs Reviewed: Hgb:11, HCT:33.6, Alb:3.1, Cr:0.4 Meds Noted: zofran, protonix, lasix Skin: no skin issues noted Additional Notes: Pt continues on a same tube feedings. Tolerating well. Agree with diet orders. Meeting estimated needs. Monitoring tube feeding orders, plan of care, weights, labs, tolerance Follow up Tuesdays and Fridays per policy
[2023-03-29] MEDS: ATORVASTATIN 40 MG TABLET FEED TUBE (20:55)
[2023-03-30] VITALS (20 sets, daily range): BP systolic 101–125; BP diastolic 63–72; PULSE 82–102; RESP 14–18; TEMP 36.5–36.9; O2SAT 93–100
[2023-03-30] MEDS: VALPROIC ACID LIQ 250 MG/5 ML ORAL SOLUTION UDC 500 MG PO ×3 (00:01→12:44)
[2023-03-30] MEDS: MEROPENEM 1 GM/NS 100 ML 1 GM/100 ML BAG IVPB ×2 (00:02→09:36)
[2023-03-30] MEDS: ALBUTEROL SULFATE NEB 2.5 MG/3 ML INH INHALATION ×4 (00:12→13:56)
[2023-03-30] MEDS: SALINE LOCK FLUSH 10 ML IV PUSH (05:06)
--- NOTE | 2023-03-30 09:31 | PM.PNPUL ---
Progress Note: A&P Assessment and Plan (1) Pneumonia: Qualifiers: Laterality: right Lung location: unspecified part of lung Pneumonia type: due to unspecified organism Qualified Code(s): J18.9 - Pneumonia, unspecified organism Code(s): J18.9 - Pneumonia, unspecified organism Status: Acute Assessment and Plan: 63-year-old man with chronic respiratory failure, status post permanent tracheostomy, peg tube placement, resident of a local senior living was brought in with respiratory distress hypoxemia related to retention of bronchial secretions with some right lung atelectasis and new right lower lobe consolidation due to pneumonia.? He had increased amount of bronchial secretions and has been on antibiotics along with aggressive pulmonary toilet.? He underwent therapeutic bronchoscopy 03/24/23; Bronchoscopy showed increased amount of thick yellow secretions lower trachea right mainstem bronchus. The right bronchial tree appeared erythematous edematous. Bronchial washings were sent for routine blood cultures. Since yesterday the chest x-ray showing inflated right lung, as well as small effusions bilaterally right greater than left. He is growing resistant bacteria MRSA and Pseudomonas. Pseudomonas intermediate to ceftazidime. Staph aureus sensitive to oral medications. Dr Austin discussed with Infectious Disease pharmacist, changed antibiotics to Meropenem in place of ceftazidime for better coverage of Pseudomonas. He continued another day with vancomycin, can switch to oral medication as discussed with Infectious Disease pharmacist. 03/26: Today's CXR is improved with placement of larger tracheostomy. I appreciate Dr Goode's help. Continue with aggressive pulmonary toilet, suctioning, nebulized short-acting bronchodilators and nebulized mucolytic agents. 03/28: Patient is awake mildly words. He is afebrile. White blood cell count 11.2, creatinine 0.4, chest x-ray with minimal right lower lobe volume loss. He is receiving vest therapy 3 times a day. When I ask him to cough he cannot do this. In order to provide him you [facility] has to place him on high-flow machine and he is on 15 L with 26% FiO2 and saturations 94%. Plan: Patient received vancomycin from 03/22 through 03/26 and is now on Septra (Day 7 adequate coverage for MRSA). Patient received ceftazidime from 03/24 through 03/25 and has been on meropenem since 03/25 (day 4 adequate coverage). He is afebrile. White blood cell count 11.2. Will continue Septra and imipenem for now. Depending on patient's clinical status will plan on at least 7 days of imipenem. 03/29: The patient is awake, he is able to mouth words and says no to any respiratory issues. He is able to raise his right hand and attempt to show 2 fingers. He does not move his left hand or his lower extremities. Currently is on humidified air 15 L and 55% FiO2 with saturations 100%. Plan: Patient is on Septra, day 8 adequate coverage for MRSA and meropenem, day 5 of adequate coverage for Pseudomonas. Goal saturation 90-94% and I have spoken with the nurse will try to wean his oxygen down accordingly. 03/30/23: Patient is awake, mouthing words in no respiratory distress on humidified high-flow 15 L and 21% FiO2. Saturations 100%. He is afebrile. Patient is on Septra, day 9 adequate coverage for MRSA and meropenem, day 6 of adequate coverage for Pseudomonas. Plan: From a pulmonary perspective patient is ready to be discharged on these pulmonary medications. Bactrim DS 2 tabs q.12 hours through 03/31/2023 Albuterol 2.5 mg nebulized and ipratropium 0.5 mg nebulized q.i.d. Vibratory vest therapy and chest PT QID ?tracheal suctioning q.2 hours throughout the day and night ?guaifenesin 600 mg per G tube q.i.d. Humidified oxygen per facilities protocol to maintain saturation 90-94%.? If he requires no oxygen he should still have humidified room air. Discussed with kwame Medrano
[2023-03-30] MEDS: cloBAZam (*CRX) 10 MG TABLET FEED TUBE (09:36)
[2023-03-30] MEDS: METOPROLOL TARTRATE 25 MG TABLET FEED TUBE (09:36)
[2023-03-30] MEDS: FUROSEMIDE INJ 40 MG/4 ML VIAL IV PUSH (09:36)
[2023-03-30] MEDS: levETIRAcetam ORAL SOL 500 MG/5 ML UDC 2000 MG FEED TUBE (09:36)
[2023-03-30] MEDS: ASPIRIN 81 MG CHEWABLE TABLET FEED TUBE (09:36)
[2023-03-30] MEDS: THIAMINE HCL 100 MG TABLET FEED TUBE (09:36)
[2023-03-30] MEDS: LACOSAMIDE (*CRX) 200 MG TABLET FEED TUBE (09:36)
[2023-03-30] MEDS: SULFAMETHOXAZOLE/TRIMETHOPRIM 800/160 MG DS TABLET 2 TAB PO (09:36)
[2023-03-30] MEDS: PANTOPRAZOLE SODIUM IV 40 MG VIAL IV PUSH (09:36)
[2023-03-30] MEDS: FOLIC ACID 1 MG TABLET FEED TUBE (09:36)
[2023-03-30] MEDS: FAMOTIDINE 20 MG TABLET FEED TUBE (09:36)
[2023-03-30] MEDS: CLOBAZAM 5 MG FEED TUBE (09:37)
--- NOTE | 2023-03-30 11:29 | PM.DS ---
DS: Admitting Diagnosis Discharge Date 03/30 Admitting Diagnosis shortness of breath 2/2 mucous plug DS: Discharge Diagnosis Discharge Diagnosis (1) Atelectasis of right lung: Code(s): J98.11 - Atelectasis Status: Acute Assessment and Plan: Right lung extensive atelectasis likely from mucus plugging. Pulmonology consulted. Mucolytics and pulmonary toilet with frequent suctioning ordered. Chest CT ordered. May require bronchoscopy. Tracheostomy already in place. 03/23: Resolution of collapsed lung after bronchoscopy. May titrate down on oxygen as tolerated 03/24: Course, diminished right sided lung sounds. CXR with opacity, atelactesis vs pneumonia. Patient being treated for previous sputum culture. 03/25: Diminished right lung sounds, coarse sounding. Hourly suction ordered per Pulmonary. Trach changed to 7.5 Shiley at bedside by ENT at request of Pulmonary for better access to bronch again if needed. 03/26: Trach is actually size 6 Shiley, 7.5 mm inner diameter. It was incorrectly documented yesterday by me. 03/27: Improved lung sounds, improved aeration. CXR ordered for AM. 03/28: Stable, no recollapse of lung 03/29: No breathing problems. Stable on trach collar. Awaiting discharge to correction after Meropenem infusions completed. (2) Acute and chronic respiratory failure: Qualifiers: Respiratory failure complication: hypoxia Qualified Code(s): J96.21 - Acute and chronic respiratory failure with hypoxia Code(s): J96.20 - Acute and chronic respiratory failure, unspecified whether with hypoxia or hypercapnia Status: Acute Assessment and Plan: Acute exacerbation hypoxemic respiratory failure high-flow oxygenation through trach collar in place. Frequent suctioning. Mucolytics. Pulmonary toilet. Current IMU status. 03/25: Added Vest CPT to help mobilize secretions 03/26: Flow rate decreased to 30 LPM trach collar 03/27: Flow rate decreased to 25 LPM after rounds 03/28: Flow rate decreased to 15 LPM after rounds which is base trach collar on this device 03/29: Trach collar on room air (3) Tracheostomy in place: Code(s): Z93.0 - Tracheostomy status Status: Acute Assessment and Plan: See 1 and 2 03/25: Bedside trach change to 6 Shiley with 7.5 mm inner cannulas (4) Seizure disorder: Code(s): G40.909 - Epilepsy, unspecified, not intractable, without status epilepticus Status: Chronic Assessment and Plan: Resume home medications, no current seizure activity noted 03/25: IV antibiotics changed to Meropenum which interferes with valproate. RN aware to monitor for seizure activity. PRN Ativan ordered 03/26: No reported convulsive activity. 03/27: One episode of possible eye diverted activity for 45 seconds yesterday. 03/28: No reported convulsive activity 03/29: No reported convulsive activity (5) Aphasia: Code(s): R47.01 - Aphasia Status: Chronic Assessment and Plan: Unable to get further information on HPI/ROS due to chronic aphasia. Tracheostomy in place. G-tube dependent. (6) Hypoxia: Code(s): R09.02 - Hypoxemia Status: Acute Assessment and Plan: See 1 and 2 (7) Gastrostomy tube dependent: Code(s): Z93.1 - Gastrostomy status Status: Acute Assessment and Plan: Patient is G-tube dependent. Dietitian consult for tube feeding resumption. Medications per G-tube or IV. (8) Hyponatremia: Code(s): E87.1 - Hypo-osmolality and hyponatremia Status: Resolved Assessment and Plan: 03/23: Mildly decreased sodium level at 132 which is comparable to prior results during episodes of acute illness. IV fluids ordered at this time. Resume tube feed diet. 03/24: Improved sodium to 138. IV fluids discontinued due to concern for fluid overload. Patient on tube feeds with flushes. 03/25: Resolved. Sodium 140 today. 03/26: Resolved. Sodium
[2023-03-30 13:32] LABS: SARS-CoV-2 RNA PCR Negative (Negative)
== END 2023-03-30 14:52 | DRG 143 ==
LOC: ANHED 09:31 → ANHIMU 14:51
PROVIDERS: Internal Medicine Pulmonary Disease; Nurse Practitioner; Admitting Provider Chiropractor; Emergency Provider Nurse Practitioner Family; PCP Internal Medicine; Visit Provider Nurse Practitioner Acute Care
PROC: 0BJ08ZZ Inspection of Tracheobronchial Tree, Via Natural or Artificial Opening Endoscopic (ICD-10-PCS; CPT 31622; principal; 2023-03-23 14:00)
DX: T17.890A Other foreign object in other parts of respiratory tract causing asphyxiation, initial encounter (principal); J96.21 Acute and chronic respiratory failure with hypoxia; R40.3 Persistent vegetative state; J18.9 Pneumonia, unspecified organism; E87.1 Hypo-osmolality and hyponatremia; F01.52 Vascular dementia, unspecified severity, with psychotic disturbance; J44.0 Chronic obstructive pulmonary disease with (acute) lower respiratory infection; J98.11 Atelectasis; R47.01 Aphasia; G40.909 Epilepsy, unspecified, not intractable, without status epilepticus; Z20.822 Contact with and (suspected) exposure to COVID-19; N40.0 Benign prostatic hyperplasia without lower urinary tract symptoms; D50.9 Iron deficiency anemia, unspecified; B96.5 Pseudomonas (aeruginosa) (mallei) (pseudomallei) as the cause of diseases classified elsewhere; B95.62 Methicillin resistant Staphylococcus aureus infection as the cause of diseases classified elsewhere; Z93.0 Tracheostomy status; Z93.1 Gastrostomy status; Z74.01 Bed confinement status; Z86.73 Personal history of transient ischemic attack (TIA), and cerebral infarction without residual deficits; Z89.612 Acquired absence of left leg above knee
CPT/HCPCS: 36415; 36569; 36600; 71045; 71250; 80053; 80202; 82805; 85025; 85055; 85610; 87015; 87070; 87077; 87086; 87088; 87116; 87147; 87181; 87186; 87205; 87206; 87635; 87637; 87641; 94640; 94668; 94669; 99285; A9270; C9113; J0171; J0456; J0696; J0713; J1650; J1940; J2185; J2250; J2704; J3370; J7030; J7040; J7120

== ENCOUNTER 2023-04-20 16:35 | Inpatient (IN) | payer OTHER, SELFPAY ==
[2023-04-20] VITALS (7 sets, daily range): BP systolic 112–126; BP diastolic 85–89; PULSE 104–124; RESP 12–24; TEMP 36.5; O2SAT 94–97
--- NOTE | ~2023-04-20 | XR_ITS ---
EXAMINATION: XR chest PICC line INDICATION: PICC insertion TECHNIQUE: Portable AP chest at 1212 hours COMPARISON: 04/20/2023 FINDINGS: A right upper extremity PICC has been inserted which ends with its tip in the distal superi or vena cava. A tracheostomy is noted. There is improved aeration of the right upper lobe. There are small pleural effusions. The cardiomediastinal silhouette is normal. There are minimal airspace opaci ties of the lung bases. IMPRESSION: 1. Right upper extremity PICC ending with its tip in the distal superior vena cava. 2. Marked improvement in aeration of the right upper lobe. 3. Small pleural effusions with bibasilar airspace opacities, likely atelectasis. Reviewed, dictated and finalized at location A. UNITY MARKETING COORDINATOR IMPRESSION: 1. Right upper extremity PICC ending with its tip in the distal superior vena c larry. 2. Marked improvement in aeration of the right upper lobe. 3. Small pleural effusions with bibasilar airspace opacities, likely atelectasi s.
--- NOTE | ~2023-04-20 | XR_ITS ---
EXAMINATION: XR chest 1V portable DATE: 04/26/2023 12:34 INDICATION: Central line placement. TECHNIQUE: A single frontal view of the chest was obtained. COMPARISON: Chest single view 04/24/2023, chest CT 04/20/2023 FINDINGS: There are small pleural effusions. There are airspace opacities at the lung bases. No pneum othorax. The heart size is normal. There is a tracheostomy tube in expected position. A right upper e xtremity peripherally inserted central venous catheter (PICC) is seen with tip at the superior cavoat rial junction. The catheter is kinked in the arm. IMPRESSION: 1. PICC kinked in the arm. 2. Stable small pleural effusions. 3. Airspace opacities at the lung bases with improvement on the left, consistent with atelectasis jn roldan pneumonia. Reviewed, dictated and finalized at location A. CLEANER IMPRESSION: 1. PICC kinked in the arm. 2. Stable small pleural effusions. 3. Airspace opacities at the lung bases with improvement on the left, consisten t with atelectasis versus pneumonia.
--- NOTE | ~2023-04-20 | XR_ITS ---
EXAMINATION: XR chest 1V portable Exam Date/Time: 04/20/2023 17:40 AUDIO TAPE LIBRARIAN HISTORY: Dyspnea, COVID + HX COPD Comparison: 03/28/2023. RESULT: Lines, tubes, and devices: Tracheostomy tube in good position. Lungs and pleura: Right upper lobe opacification, with volume loss and minor fissure elevation. Mild fissural on the right fluid. Persistent mild right costophrenic angle blunting. Streaky bibasilar at electasis. Cardiomediastinal silhouette: Stable. Other: No acute osseous or upper abdominal finding. IMPRESSION: Right upper lobe atelectasis, consider mucous plugging. Unchanged small right pleural effusion. Reviewed, dictated and finalized at location K. O TAPE LIBRARIAN
--- NOTE | ~2023-04-20 | CT_ITS ---
EXAMINATION: CT diagnostic chest wo con DATE: 04/20/2023 23:49 INDICATION: PNEUMONIA TECHNIQUE: Computed tomography (CT) of the chest was performed with 100 mL Omnipaque-350 intravenous contrast. Automated exposure control and iterative reconstruction technique were employed. The dose-l ength product was 217.79 mGy-cm. COMPARISON: X-ray chest, same date. FINDINGS: CHEST: Examination limited by respiratory motion. Thoracic aorta: No significant dilation. Mild arch calcification. Lung parenchyma and airways: Tracheostomy tube terminates in the midthoracic trachea. Scattered mild bronchiectasis. Subsegmental bibasilar opacities. Linear and reticular opacities in the right upper l obe which is now expanded. Thoracic inlet, axillae and chest wall: No thyroid or soft tissue mass. No axillary lymphadenopathy. Mediastinum: No mass or lymphadenopathy. Heart and pericardium: Normal heart size. No pericardial effusion. Coronary artery calcifications: Moderate. Pleura: Small bilateral fluid collections. Upper abdomen: A portion of a catheter or drain is noted in the left upper quadrant. Punctate left re nal calcifications. Thoracic bones: No acute osseous finding in the chest. IMPRESSION: Significant interval improvement in right upper lobe aeration, with mild interstitial predominant ree xpansion edema. Subsegmental bibasilar atelectasis/consolidation. Small bilateral pleural effusions. Reviewed, dictated and finalized at location K. UNICATIONS COORDINATOR IMPRESSION: Significant interval improvement in right upper lobe aeration, with mild inters titial predominant reexpansion edema. Subsegmental bibasilar atelectasis/consolidation. Small bilateral pleural effusions.
--- NOTE | 2023-04-20 16:43 | ED.SOB ---
HPI - SOB/Dyspnea General Chief Complaint: Shortness of Breath/Dyspnea Stated Complaint: sob, covid + Time Seen by Provider: 04/20/23 16:42 Source: EMS Mode of arrival: EMS Limitations: physical limitation and clinical condition History of Present Illness HPI Narrative: 63 YEARS OLD MALE CAME FROM CUSTODIAL WITH HYPOXIA, 85%, TESTED POSITIVE FOR COVID YESTERDAY. CUSTODIAL STAFF IS TELLING ME THAT PATIENT ON 2-10 L OF OXYGEN, NEED SUCTION EVERY 2 HOURS, HE IS FULL CODE. AND NONVERBAL. HISTORY OF FEEDING TUBE, APHASIA, SEIZURE DISORDER, URINARY TRACT INFECTION, MUCOUS PLUGGING OF BRONCHI, ATELECTASIS OF THE RIGHT LUNG, ACUTE AND CHRONIC RESPIRATORY FAILURE, INTRACTABLE SEIZURE DISORDER, DYSPHAGIA, PNEUMONIA, TRACHEOSTOMY IN PLACE, THE PATIENT DID HAVE STATE, HISTORY OF MULTIPLE STROKES, DEMENTIA, IT UNILATERAL COMPLETE AKA, INCREASE TRACHEAL SECRETION, HYPOXIA, COPD, IRON DEFICIENCY ANEMIA, VASCULAR DEMENTIA WITH PSYCHOTIC DISTURBANCE Related Data Home Medications Medication Instructions Recorded Confirmed atorvastatin 40 mg tablet 40 mg feeding tube QHS 11/14/22 04/21/23 folic acid 1 mg tablet 1 mg feeding tube DAILY 11/14/22 04/21/23 lacosamide 200 mg tablet 200 mg feeding tube Q12H 11/14/22 04/21/23 aspirin 81 mg chewable tablet 81 mg feeding tube DAILY 11/15/22 04/21/23 metoprolol tartrate 25 mg tablet 25 mg feeding tube Q12H 12/18/22 04/21/23 polyethylene glycol 3350 17 17 g feeding tube Q12H 12/18/22 04/21/23 gram/dose oral powder bisacodyl 10 mg rectal suppository 10 mg RECTAL DAILY PRN Constipation 02/11/23 04/21/23 magnesium citrate (Citroma oral 296 ml feeding tube DAILY PRN 02/11/23 04/21/23 solution) Constipation magnesium hydroxide 400 mg/5 mL 30 ml feeding tube HS PRN 02/11/23 04/21/23 oral suspension (Milk of Magnesia) Constipation sennosides 8.6 mg tablet (senna) 8.6 mg feeding tube HS PRN 02/11/23 04/21/23 Constipation sodium phosphates 19 gram-7 197 ml RECTAL ONCE 02/11/23 04/21/23 gram/118 mL enema (Fleet Enema) thiamine HCl (vitamin B1) 100 mg 100 mg feeding tube DAILY 02/11/23 04/21/23 tablet acetaminophen 650 mg tablet 650 mg PO Q6H PRN Pain 03/21/23 04/21/23 clobazam 10 mg tablet 15 mg feeding tube Q12H 03/21/23 04/21/23 famotidine 20 mg tablet 20 mg feeding tube Q12H 03/21/23 04/21/23 levetiracetam 100 mg/mL oral 2,000 mg feeding tube Q12H 03/21/23 04/21/23 solution (Keppra) omeprazole 20 mg tablet,delayed 20 mg PO DAILY 03/21/23 04/21/23 release peg [id number] 1 1 drp EACH EYE 4-6XD PRN Dry Eyes 03/21/23 04/21/23 %-0.2 %-0.2 % eye drops (Artificial Tears ([id number])) valproic acid (as sodium salt) 250 500 mg PO QID 03/21/23 04/21/23 mg/5 mL oral solution hydroxyzine HCl 25 mg tablet 25 mg feeding tube Q6H PRN Anxiety 04/20/23 04/21/23 lidocaine HCl 4 % topical cream 1 applic topical QID PRN Pain 04/21/23 04/21/23 (Aspercreme (lidocaine HCl)) nirmatrelvir 150 mg-ritonavir 100 3 ea PO BID 04/21/23 04/21/23 mg tablets in a dose pack zinc oxide-cod liver oil 40 % 1 applic topical QAM AND QHS 04/21/23 04/21/23 topical paste (Desitin) Allergies Allergy/AdvReac Type Severity Reaction Status Date / Time clonazepam Allergy Unknown Unknown Verified 04/21/23 01:33 Review of Systems Review of Systems: ROS unobtainable: Yes unobtainable due to medical condition and unobtainable due to mental status PMFSH Past Medical History Medical History Aphasia COPD (chronic obstructive pulmonary disease) Dysphagia Esophageal diverticulum Expressive aphasia Gastroparesis Gastrostomy tube dependent History of BPH History of multiple strokes Hyponatremia Iron deficiency anemia Malfunction of gastrostomy tube Seizure disorder Vascular dementia with psychotic disturbance Surgical History Surgical History Gastrostomy tube in place His
[2023-04-20 16:56] LABS: Alveolar/Arterial O2 Gradient 47.5 mmHg; Base Excess ABG 3.2 mEq/l (+/-2.0); Fractional Inspired Oxygen 21 %; HCO3 ABG 26.6 mEq/l (22.0-26.0); Oxygen Content ABG 17.3 %vol (16.0-22.0); PCO2 ABG 36.9 mmHg (35.0-45.0); PO2 FiO2 Ratio Arterial Blood 2.76 %; Total Hemoglobin 14.1 g/dL (12.0-18.0); pH ABG 7.476 (7.350-7.450)
[2023-04-20 16:57] LABS: Oxyhemoglobin 87.5 % THb (90.0-100.0); Site Drawn RIGHT RADIAL
[2023-04-20 16:58] LABS: Device ROOM AIR; Modified Allen's Test Pass
[2023-04-20 17:54] LABS: Hematocrit 52.8 % (42.0-52.0); Hemoglobin 16.2 g/dL (14.0-18.0); Immature Platelet Fraction Pct 14.6 % (0.9-11.2); Mean Corpuscular HGB Conc 30.7 g/dl (32-36); Mean Corpuscular Hemoglobin 31.3 pg (26-34); Mean Corpuscular Volume 101.9 fl (80-100); Mean Platelet Volume 13.7 fl (7.4-10.4); Platelet Count Result 92 k/mm3 (150-375); Red Blood Count 5.18 M/mm3 (4.6-6.20); Red Cell Distribution Width 15.7 % (11.5-14.5); White Blood Count 6.5 K/mm3 (4.5-10.0)
[2023-04-20 18:29] LABS: Influenza A QL RT-PCR Negative (Negative); Influenza B QL RT-PCR Negative (Negative); RSV RNA, RT-PCR Negative (Negative); SARS-CoV-2 RNA PCR Positive (Negative)
[2023-04-20 19:06] LABS: Band Neutrophils Percent 9 % (0-6); Lymphocytes Absolute Manual 2.92 K/mm3 (1.1-4.5); Monocytes Absolute Manual 0.39 K/mm3 (0.1-0.90); Monocytes Percent Manual 6 % (3-9); Neutrophils Absolute Manual 3.18 K/mm3 (1.3-6.7); Neutrophils Percent Manual 40 % (46-73); Total Cells Counted 100
[2023-04-20 19:07] LABS: Platelet Estimate Decreased (Adequate); Schistocytes None Seen (NORMAL)
[2023-04-20 19:08] LABS: Anisocytosis 1+ (NORMAL); Hypochromasia 1+ (NORMAL)
--- NOTE | 2023-04-20 21:45 | PC.NURSE ---
CALLED PT'S SISTER/NEXT OF KIN; SUZANNE FOR EDP; DR. MOLINA. WHO SPOKE WITH HER ABOUT CODE STATUS, AND THE POSSIBILITY OF NEED FOR CENTRAL LINE ACCESS DUE TO ALL STAFF UNABLE TO START SUCCESSFUL IV ACCESS NOR ACQUIRE ALL ORDERED LABS.
--- NOTE | 2023-04-20 22:10 | PC.NURSE ---
This RN, Tessie, RN, and Shannon RN, and house decorator attempted a total of 14 times to get a line sufficient for CTA without success.
--- NOTE | 2023-04-20 22:40 | PC.NURSE ---
Dr. Enriquez able to use ultrasound to get labs. Labs and one set of cultures sent to lab. Phlebotomy called for second set of cultures.
[2023-04-20 22:48] LABS: INR 1.9; Prothrombin Time 22.5 Seconds (11.1-14.7)
[2023-04-20 22:49] LABS: Partial Thromboplastin Time 38.2 SECONDS (22.3-36.8)
--- NOTE | 2023-04-20 23:20 | PC.NURSE ---
This RN suctioned trach.
--- NOTE | 2023-04-20 23:27 | PM.IMHP ---
H&P: HPI History of Present Illness Date/Time: 04/20/23 23:27 Chief Complaint: patient transferred to the ER from custodial for evaluation secondary to hypoxia Narrative: He is a very unfortunate 63 years old male with history of multiple strokes, aphasic, s/p PEG tube / tracheostomy / Jensen catheter who was found to be hypoxic in nursing facility. There have been a few cases of COVID-19 in that facility. He was sent to the ER for evaluation for his hypoxia as he was satting in 80s. He has copious secretions in nasopharynx requiring multiple suctions. COVID-19 testing was done in the ER which is positive. He has been recently admitted in the hospital for extensive right lung atelectasis likely from mucus plugging which was treated with bronchoscopy and mucus plug removal. Chest x-ray was done which showed right upper lobe opacification likely due to atelectasis as well. CT scan of the chest was ordered which is pending. We are unsure of the duration of COVID-19 positive status of the patient. We will start him on IV Solu-Medrol and remdesivir, order frequent suctioning of the nasopharynx and monitor him closely on the floor. Review of Systems Review of Systems: unable to be obtained as patient is aphasic and lethargic ROS unobtainable: Yes unobtainable due to mental status PMFSH Past Medical History Medical History Aphasia COPD (chronic obstructive pulmonary disease) Dysphagia Esophageal diverticulum Expressive aphasia Gastroparesis Gastrostomy tube dependent History of BPH History of multiple strokes Hyponatremia Iron deficiency anemia Malfunction of gastrostomy tube Seizure disorder Vascular dementia with psychotic disturbance Surgical History Surgical History Gastrostomy tube in place History of left above knee amputation Tracheostomy in place Family History Family History Other Unknown family medical history Social History Social History Social History: Code status: Full code Surrogate decision maker: Sister Smoking status: Unknown if ever smoked Alcohol intake: unknown Substance use: unknown Substance use type: does not use Spiritual care concerns: No Meds Home Medications and Allergies Home Medications Medication Instructions Recorded Confirmed Type atorvastatin 40 mg tablet 40 mg feeding tube QHS 11/14/22 03/21/23 History folic acid 1 mg tablet 1 mg feeding tube DAILY 11/14/22 03/21/23 History lacosamide 200 mg tablet 200 mg feeding tube Q12H 11/14/22 03/21/23 History aspirin 81 mg chewable tablet 81 mg feeding tube DAILY 11/15/22 03/21/23 History metoprolol tartrate 25 mg tablet 25 mg feeding tube Q12H 12/18/22 03/21/23 History polyethylene glycol 3350 17 17 g feeding tube BID 12/18/22 03/21/23 History gram/dose oral powder bisacodyl 10 mg rectal suppository 10 mg RECTAL DAILY PRN Constipation 02/11/23 03/21/23 History magnesium citrate (Citroma oral 296 ml feeding tube DAILY PRN 02/11/23 03/21/23 History solution) Constipation magnesium hydroxide 400 mg/5 mL 30 ml feeding tube HS PRN 02/11/23 03/21/23 History oral suspension (Milk of Magnesia) Constipation sennosides 8.6 mg tablet (senna) 8.6 mg feeding tube HS PRN 02/11/23 03/21/23 History Constipation sodium phosphates 19 gram-7 197 ml RECTAL ONCE 02/11/23 03/21/23 History gram/118 mL enema (Fleet Enema) thiamine HCl (vitamin B1) 100 mg 100 mg feeding tube DAILY 02/11/23 03/21/23 History tablet acetaminophen 650 mg tablet 650 mg PO Q6H PRN Pain 03/21/23 03/21/23 History calcium carbonate 500 mg/5 mL 1,250 mg PO Q6H PRN gerd 03/21/23 03/21/23 History calcium (1,250 mg/5 mL) oral suspension clobazam 10 mg tablet 15 mg feeding tube BID 03/21/23 03/21/23 History famotidine 20 mg tablet 2
[2023-04-20 23:47] LABS: NT Pro B Type Natriuretic Pept 512 pg/mL (19.9-100)
[2023-04-21] VITALS (28 sets, daily range): BP systolic 111–157; BP diastolic 61–83; PULSE 73–111; RESP 16–24; TEMP 36–36.6; O2SAT 94–100; BMI 20.8
[2023-04-21 00:12] LABS: Alanine Aminotransferase 14 U/L (6-50); Albumin Level 3.6 g/dL (3.5-5.1); Alkaline Phosphatase 87 U/L (38-126); Anion Gap 8 mmol/L (8-16); Aspartate Amino Transferase 35 U/L (17-59); Bilirubin,Total 0.8 mg/dL (0.2-1.3); Blood Urea Nitrogen 13 mg/dL (9-20); Calcium 9.8 mg/dL (8.4-10.2); Carbon Dioxide 24 mmol/L (22-30); Chloride 106 mmol/L (98-107); Estimated Glomerular Filt Rate > 60; Glucose 105 mg/dL (65-110); Potassium 4.7 mmol/L (3.4-5.0); Sodium 138 mmol/L (137-145)
[2023-04-21] MEDS: REMDESIVIR 200 MG/NS 250 ML 200 MG/250 ML BAG 250 MG IVPB (00:49)
--- NOTE | 2023-04-21 00:52 | PC.NURSE ---
This RN suctioned patient.
--- NOTE | 2023-04-21 01:15 | PC.NURSE ---
This patient, Bi Tabor, was admitted to IMU Room 210-01. Patient/family oriented to hospital policies and general routines including ID bracelet, bed and alarms, visiting hours, pain management, procedures, bathroom and other care routines, personal items, smoking policy, room service/diet, and visiting hours. Information on how to activate the Rapid Response Team has been discussed. Patient/Family are encouraged to report perceived risks to care and to ask questions if they do not understand what they are told or what they should do.
[2023-04-21] MEDS: SODIUM CHLORIDE 0.9% IV 1,000 ML 75 ML IV CONT (02:05)
[2023-04-21] MEDS: IPRATROPIUM BR 0.02% INH SOLN 0.5 MG/2.5 ML VIAL INHALATION ×4 (03:20→20:18)
[2023-04-21] MEDS: ALBUTEROL SULFATE NEB 2.5 MG/3 ML INH INHALATION ×4 (03:20→20:18)
[2023-04-21 05:34] LABS: Hematocrit 39.9 % (42.0-52.0); Hemoglobin 12.7 g/dL (14.0-18.0); Immature Platelet Fraction Pct 13.6 % (0.9-11.2); Mean Corpuscular HGB Conc 31.8 g/dl (32-36); Mean Corpuscular Hemoglobin 31.2 pg (26-34); Mean Platelet Volume 13.4 fl (7.4-10.4); Platelet Count Result 94 k/mm3 (150-375); Red Blood Count 4.07 M/mm3 (4.6-6.20); Red Cell Distribution Width 15.5 % (11.5-14.5); White Blood Count 7.7 K/mm3 (4.5-10.0)
[2023-04-21 05:41] LABS: Anion Gap 10 mmol/L (8-16); Blood Urea Nitrogen 14 mg/dL (9-20); Calcium 9.8 mg/dL (8.4-10.2); Carbon Dioxide 25 mmol/L (22-30); Chloride 106 mmol/L (98-107); Estimated CRCL calculation 141 ml/min; Estimated Glomerular Filt Rate > 60; Glucose 96 mg/dL (65-110); Potassium 3.9 mmol/L (3.4-5.0); Sodium 141 mmol/L (137-145)
[2023-04-21 07:51] LABS: Band Neutrophils Percent 14 % (0-6); Basophils Absolute Manual 0.07 K/mm3 (0.0-0.1); Basophils Percent Manual 1 % (0-1); Lymphocytes Absolute Manual 2.38 K/mm3 (1.1-4.5); Metamyelocytes Percent 2 %; Monocytes Percent Manual 4 % (3-9); Neutrophils Absolute Manual 4.77 K/mm3 (1.3-6.7); Neutrophils Percent Manual 48 % (46-73); Total Cells Counted 100
[2023-04-21 07:52] LABS: Burr Cells 1+ (NORMAL); Schistocytes None Seen (NORMAL)
[2023-04-21 08:07] LABS: CRP 5.6 mg/dL (<1.0)
[2023-04-21 08:14] LABS: D Dimer 0.69 ug/mL (<0.48)
[2023-04-21] MEDS: VALPROIC ACID LIQ 250 MG/5 ML ORAL SOLUTION UDC 500 MG PO ×4 (09:29→21:16)
[2023-04-21] MEDS: ZINC SULFATE 220 MG CAPSULE PO (09:29)
[2023-04-21] MEDS: levETIRAcetam ORAL SOL 500 MG/5 ML UDC 2000 MG FEED TUBE ×2 (09:29→21:16)
[2023-04-21] MEDS: polyethylene glycoL 3350 17 GM POWD.PACK FEED TUBE (09:29)
[2023-04-21] MEDS: THERAPEUTIC MULTIVITAMINS/MINERALS TAB (*BKC) 1 TABLET PO (09:30)
[2023-04-21] MEDS: DEXAMETHASONE 2 MG TABLET 6 MG FEED TUBE (09:30)
[2023-04-21] MEDS: ENOXAPARIN 40 MG/0.4 ML SYRINGE SUB-Q (09:30)
[2023-04-21] MEDS: ASCORBIC ACID 500 MG TABLET PO (09:30)
[2023-04-21] MEDS: CHOLECALCIFEROL 1,000 UNITS TABLET 1000 UNITS PO (09:30)
[2023-04-21] MEDS: FOLIC ACID 1 MG TABLET FEED TUBE (09:32)
[2023-04-21] MEDS: THIAMINE HCL 100 MG TABLET FEED TUBE (09:32)
[2023-04-21] MEDS: CLOBAZAM 5 MG 15 MG FEED TUBE ×2 (09:32→21:16)
[2023-04-21] MEDS: FAMOTIDINE 20 MG TABLET FEED TUBE ×2 (09:32→21:17)
[2023-04-21] MEDS: METOPROLOL TARTRATE 25 MG TABLET FEED TUBE ×2 (09:33→21:16)
[2023-04-21] MEDS: COD LIVER OIL/ZINC OXIDE OINT 30 GM 1 APPLIC TOPICAL ×2 (09:34→21:17)
[2023-04-21] MEDS: LACOSAMIDE (*CRX) 200 MG TABLET FEED TUBE ×2 (09:34→21:17)
[2023-04-21 12:39] LABS: Glucose Point of Care 99 mg/dl (65-105)
--- NOTE | 2023-04-21 13:54 | PM.IMPN ---
Progress Note: A&P Assessment and Plan (1) COVID-19 virus infection: Code(s): U07.1 - COVID-19 Status: Acute Assessment and Plan: Continue with suctioning of secretions from the nasopharynx q.2 hours Oxygen via high flow trach collar, 30 FiO2 at 35 Patient started on oral dexamethasone by feeding tube daily for 10 days Started patient on IV remdesivir as per COVID-19 treatment protocol Follow-up on blood and sputum cultures Patient started on supplemental treatment with multivitamin, zinc, vitamin-C and vitamin-D PT OT evaluation and treatment to be considered once patient is more stable Continue to monitor labs (2) Chronic hypoxemic respiratory failure: Code(s): J96.11 - Chronic respiratory failure with hypoxia Status: Chronic Assessment and Plan: Continue with suctioning of secretions from the nasopharynx q.2 hours Oxygen via high flow trach collar, 30 FiO2 at 35 Patient started on oral dexamethasone by feeding tube daily for 10 days Started patient on IV remdesivir as per COVID-19 treatment protocol Follow-up on blood and sputum cultures - started on Vancomycin and Meropenem based on previous admission sputum cultures and MRSA + status Pulmonology consulted for respiratory decompensation, will await evaluation for any additional treatment recommendations (3) Tracheostomy dependence: Code(s): Z93.0 - Tracheostomy status Status: Chronic Assessment and Plan: Suction Q2 (4) 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 Assessment and Plan: Feeding tube in place and used for medication administration (5) Aphasia: Code(s): R47.01 - Aphasia Status: Chronic (6) Seizure disorder: Code(s): G40.909 - Epilepsy, unspecified, not intractable, without status epilepticus Status: Chronic Assessment and Plan: PRN Ativan available and nurses aware to monitor for seizure activity as meropenem can interact with valproic acid (7) Atelectasis of right lung: Code(s): J98.11 - Atelectasis Status: Chronic (8) Tracheostomy in place: Code(s): Z93.0 - Tracheostomy status Status: Acute (9) Increased tracheal secretions: Code(s): J39.8 - Other specified diseases of upper respiratory tract Status: Acute Plan Continue with home meds. Patient needs close follow up with PCP/specialists as an outpatient to address chronic medical issues. Electrolyte replacement as per protocol. Subjective Date/time seen: 04/21/23 13:54 Interval history: Patient is a 63 YO male PMH of multiple strokes, aphasic, s/p PEG tube / tracheostomy / Jensen catheter who was found to be hypoxic in nursing facility. There have been a few cases of COVID-19 in that facility. He was sent to the ER for evaluation for his hypoxia as he was satting in 80s. He has copious secretions in nasopharynx requiring multiple suctions. COVID-19 testing was done in the ER which is positive. He has been recently admitted in the hospital for extensive right lung atelectasis likely from mucus plugging which was treated with bronchoscopy and mucus plug removal. Chest x-ray was done which showed right upper lobe opacification likely due to atelectasis as well. CT scan of the chest was ordered and reviewed. Pulmonology consulted for respiratory decompensation, will await recommendations for and further needs to management. He was started on IV Solu-Medrol and remdesivir, order frequent suctioning of the nasopharynx. Will consider further interventions based on covid protocol. Discussed with ID pharm and started on Vancomycin and Meropenem based on previous admission and previous sputum cultures as we await current culture results. Patient is MRSA positive. Family is adamant about remaining a full code. Will continue to closely monitor. Review of Systems Review of Systems: unable to be obtained as patient is apha
[2023-04-21] MEDS: MEROPENEM 1 GM/NS 100 ML 1 GM/100 ML BAG IVPB ×2 (14:09→21:17)
--- NOTE | 2023-04-21 15:35 | PM.CNPUL ---
Assessment and Plan Assessment and plan (1) COVID-19 virus infection: Code(s): U07.1 - COVID-19 Status: Acute Assessment and Plan: He was diagnosed with a positive SARS-CoV-2 at the care home on 04/20, admitted same day. He had decreased oxygen saturate compared to normal, PO2 was 58, normal now on only 35%. His labs are consistent with COVID, and his other viral swabs were negative, influenza a, influenza B and RSV. His sputum is being sent for evaluation. In the past he has had positive sputum growing Acinetobacter, Pseudomonas and MRSA. His coverage has been extended to cover these organisms. He is currently on oral dexamethasone and IV remdesivir. (2) Chronic hypoxemic respiratory failure: Code(s): J96.11 - Chronic respiratory failure with hypoxia Status: Chronic Assessment and Plan: He has a chronic trach, Shiley 7.5 mm inner diameter, cuffless; this was a new model for him Mar 25, [address] Goode changed to this. He is not leaking secretions from around the stoma. He is able to voice some words without difficulty. He might be bale to use a speaking trach, later, when he is not acutely ill. (3) Tracheostomy dependence: Code(s): Z93.0 - Tracheostomy status Status: Chronic Assessment and Plan: long standing Plan Vibratory vest to help clear secretions. Add Mucinex 600 mg BID through G Tube to thin secretions. Continue albuterol and ipratropium nebulized for secretions clearance. LDH, lactic acid in the am. His labs are consistent with COVID infection; elevated protime, D-dimer, low platelets 94k. His AST is normal at 35, ALT is [address] His chest CT is not severely abnormal. It has been much worse in the past. He is on COVID treatment with p.o. dexamethasone and IV remdesivir. He is oxygenating well on 35% through trach collar. He might benefit from having vibratory vest to help clear secretions. He coughs, gets lots of secretions in his trach, and needs frequent suctioning. We will follow closely with you. History of Present Illness History of Present Illness Consult date: 04/21/23 Requesting physician: Denise Lloyd APRN Chief complaint: Hypoxia/Atelectasis/COVID-19 Narrative: Fabi was seen Apr 21 at 16:00 Room 210 NEW: Bi Tabor is a 63-year-old man known to our service, last pulmonary consult 03/21/2023. See numerous admissions during the last year. He is a permanent care home resident. He had a (+) COVID test yesterday 04/20 in the [place]. He came to the ER because his saturation was lower than usual, in the 80% range. He is on dexamethasone 6 mg po x 10 days and remdesivir with frequent suctioning to clear increased amount of trach secretions. He is also on Vancomycin and Meropenem to cover his prior organisms. PMH: chronic respiratory failure, status post permanent tracheostomy, peg tube placement, resident of a local care home; severe seizure disorder. Stroke. Aphasia. Right AKA. Frequent collapse of the right lung, conservative treatment with a frequent suctioning, chest physio-therapy, and nebulized Mucomyst.?Staph aureus and resistant Pseudomonas.? In the past he grew Acinetobacter baumannii.? 2022 ER visits and hospital admissions 11/14 through 11/17 11/20-ER visit 12/03-ER visit, nose abrasion 12/17 through 12/31-admission with intractable seizures, sepsis, sputum grew Acinetobacter baumannii, right lung collapse-->[facility] 02/11 ER - resp distress 03/21 - 03/30 admit for low sat; 03/23, bronch; R>L heavy secretions, 03/25 trach change ENT. Christine 7.5 inner diameter 04/20 this admission; (+) COVID from his NH DATA * 04/21/2023 - CT chest -examination limited by respiratory motion. Thoracic aorta: No significant dilation. Mild arch calcification
[2023-04-21 15:57] LABS: MRSA (PCR) DETECTED (NOT DETECTE)
[2023-04-21 17:53] LABS: Glucose Point of Care 178 mg/dl (65-105)
[2023-04-21 20:43] LABS: Glucose Point of Care 121 mg/dl (65-105)
[2023-04-21] MEDS: ATORVASTATIN 40 MG TABLET FEED TUBE (21:17)
[2023-04-21] MEDS: guaiFENesin 12 HR 600 MG TABCR PO (21:17)
[2023-04-21] MEDS: REMDESIVIR 100 MG/NS 250 ML 100 MG/250 ML BAG 250 MG IVPB (22:06)
[2023-04-22] VITALS (24 sets, daily range): BP systolic 110–128; BP diastolic 61–70; PULSE 62–94; RESP 16–22; TEMP 36.1–36.6; O2SAT 94–100; BMI 21.9
[2023-04-22] MEDS: IPRATROPIUM BR 0.02% INH SOLN 0.5 MG/2.5 ML VIAL INHALATION ×4 (01:22→20:08)
[2023-04-22] MEDS: ALBUTEROL SULFATE NEB 2.5 MG/3 ML INH INHALATION ×4 (01:22→20:08)
[2023-04-22] MEDS: VANCOMYCIN 1,250 MG/NS 250 ML 1,250 MG/250 ML BAG 166.67 MG IVPB ×2 (03:36→15:42)
[2023-04-22 04:32] LABS: Glucose Point of Care 96 mg/dl (65-105)
[2023-04-22 05:04] LABS: Basophils Percent Auto 0.2 % (0.2-1.2); Eosinophils Percent Auto 0.7 % (0-4.4); Hematocrit 34.2 % (42.0-52.0); Hemoglobin 10.9 g/dL (14.0-18.0); Immature Granulocyte Absolute 0.01 K/mm3 (0.00-0.031); Immature Granulocyte Percent A 0.2 % (0-0.5); Immature Platelet Fraction Pct 15.6 % (0.9-11.2); Lymphocytes Percent Auto 45.7 % (18.3-44.2); Mean Corpuscular HGB Conc 31.9 g/dl (32-36); Mean Corpuscular Hemoglobin 31.1 pg (26-34); Mean Corpuscular Volume 97.4 fl (80-100); Monocytes Absolute Auto 0.6 K/mm3 (0.1-0.6); Neutrophils Absolute Auto 2.3 K/mm3 (1.3-6.7); Neutrophils Percent Auto 42.2 % (45.5-73.1); Platelet Count Result 84 k/mm3 (150-375); Red Blood Count 3.51 M/mm3 (4.6-6.20); White Blood Count 5.5 K/mm3 (4.5-10.0)
[2023-04-22] MEDS: MEROPENEM 1 GM/NS 100 ML 1 GM/100 ML BAG IVPB ×3 (05:16→21:00)
[2023-04-22 05:24] LABS: Lactic Acid Reflex 1.2 mmol/L (0.7-2.0)
[2023-04-22 05:26] LABS: Anion Gap 9 mmol/L (8-16); Blood Urea Nitrogen 15 mg/dL (9-20); Calcium 8.5 mg/dL (8.4-10.2); Carbon Dioxide 24 mmol/L (22-30); Chloride 107 mmol/L (98-107); Estimated CRCL calculation 148 ml/min; Estimated Glomerular Filt Rate > 60; Glucose 102 mg/dL (65-110); Lactate Dehydrogenase 155 U/L (120-246); Magnesium 1.9 mg/dL (1.6-2.3); Potassium 3.8 mmol/L (3.4-5.0); Sodium 140 mmol/L (137-145)
[2023-04-22 05:35] LABS: Platelet Estimate Decreased (Adequate); Poikilocytosis 2+ (NORMAL); Smudge Cells PRESENT
[2023-04-22 05:36] LABS: Anisocytosis 1+ (NORMAL); Basophilic Stippling 1+ (NORMAL); Schistocytes Rare (NORMAL)
--- NOTE | 2023-04-22 10:34 | PM.PNPUL ---
Progress Note: A&P Assessment and Plan (1) COVID-19 virus infection: Code(s): U07.1 - COVID-19 Status: Acute Assessment and Plan: Diagnosed with a positive SARS-CoV-2 at the [facility] on 04/20, admitted here the same day. He had decreased oxygen saturation compared to normal, PO2 was 58, normal now on only 28% and 35 L/min. His labs are consistent with COVID, and his other viral swabs were negative, influenza a, influenza B and RSV. His sputum is being sent for evaluation. In the past he has had positive sputum growing Acinetobacter, Pseudomonas and MRSA. His coverage has been extended to cover these organisms with meropenem and vanco. He is currently on oral dexamethasone, stopped remdesivir; 04/21 he started Paxlovid-two 150mg Nirmatrelvir with one 100mg Ritonavir together twice daily for 5 days. (2) Chronic hypoxemic respiratory failure: Code(s): J96.11 - Chronic respiratory failure with hypoxia Status: Chronic Assessment and Plan: He has a chronic trach, Shiley 7.5 mm inner diameter, cuffless; this was a new model for him Mar 25, [address] Goode changed to this. He is not leaking secretions from around the stoma. He is able to voice some words without difficulty. He had generous amounts of secretions per his RN, Nevaeh. (3) Tracheostomy dependence: Code(s): Z93.0 - Tracheostomy status Status: Chronic Assessment and Plan: long standing condition Plan Vibratory vest might help to clear secretions however this might be a difficult ask as he cannot move or help to get into the vest. Mucinex 600 mg BID was started but this is extended release and cannot be crushed. I will change to an guaifenesin elixer 400 mg Q 4 hours to go into G tube. Continue albuterol and ipratropium nebulized for secretions clearance. LDH and lactic acid today are normal. His chest CT is not severely abnormal. It has been much worse in the past. He is on COVID treatment with p.o. dexamethasone and IV remdesivir. He is oxygenating well on 28% through trach collar. He coughs, gets lots of secretions in his trach, and needs frequent suctioning. We will wait to see what the blood culture 04/20 grows out, showing GPC in 1:2. Repeat BC today. Subjective Date/time seen: 04/22/23 10:34 Interval history: hospital follow up : 04/22 follow up for COVID infection, admitted with hypoxemia. He is alert, not in distress, nods to questions. LDH today is 195, normal. We did not measure this on admission. Lactic acid today is 1.2, normal. WBC is 5.5, normal; H/H 10.9/34.2%; plt 84K. Saturation is 94-100% on oxygen high-flow over his tracheostomy, 28%. He was on 28% yesterday with 35 L/min as well. Meropenem #2, Vanco #2, remdesivir was stopped, he is on Paxlovid started 04/21; dexamethasone #2/10 days His blood culture from 04/20 returned last night showing Gram positive cocci in clusters in 1 of 2 bottles. He is not running a fever, blood pressure is stable, pulse is normal 70 to 80s. This (+) blood culture might be contaminant. He is on vanco which will cover it. 04/21 new consult; Bi Tabor is a 63-year-old man known to our service, last pulmonary consult 03/21/2023. See numerous admissions during the last year. He is a permanent [facility] resident. He had a (+) COVID test yesterday 04/20 in the [place]. He came to the ER because his saturation was lower than usual, in the 80% range. He is on dexamethasone 6 mg po x 10 days and remdesivir with frequent suctioning to clear increased amount of trach secretions. He is also on Vancomycin and Meropenem to cover his prior organisms. ? PMH: chronic respiratory failure, status post permanent tracheostomy, peg tube placement, resident of a local [facility]; severe seizure disorde
[2023-04-22] MEDS: polyethylene glycoL 3350 17 GM POWD.PACK FEED TUBE (10:46)
[2023-04-22] MEDS: levETIRAcetam ORAL SOL 500 MG/5 ML UDC 2000 MG FEED TUBE ×2 (10:46→20:50)
[2023-04-22] MEDS: VALPROIC ACID LIQ 250 MG/5 ML ORAL SOLUTION UDC 500 MG PO ×4 (10:46→20:50)
[2023-04-22] MEDS: CLOBAZAM 5 MG 15 MG FEED TUBE ×2 (10:47→20:51)
[2023-04-22] MEDS: METOPROLOL TARTRATE 25 MG TABLET FEED TUBE ×2 (10:47→20:51)
[2023-04-22] MEDS: FOLIC ACID 1 MG TABLET FEED TUBE (10:47)
[2023-04-22] MEDS: LACOSAMIDE (*CRX) 200 MG TABLET FEED TUBE ×2 (10:47→20:51)
[2023-04-22] MEDS: DEXAMETHASONE 2 MG TABLET 6 MG FEED TUBE (10:48)
[2023-04-22] MEDS: PANTOPRAZOLE SODIUM IV 40 MG VIAL IV PUSH (10:48)
[2023-04-22] MEDS: THIAMINE HCL 100 MG TABLET FEED TUBE (10:48)
[2023-04-22] MEDS: ASCORBIC ACID 500 MG TABLET PO (10:48)
[2023-04-22] MEDS: FAMOTIDINE 20 MG TABLET FEED TUBE ×2 (10:48→20:51)
[2023-04-22] MEDS: THERAPEUTIC MULTIVITAMINS/MINERALS TAB (*BKC) 1 TABLET PO (10:49)
[2023-04-22] MEDS: guaiFENesin 12 HR 600 MG TABCR PO (10:49)
[2023-04-22] MEDS: ZINC SULFATE 220 MG CAPSULE PO (10:49)
[2023-04-22] MEDS: CHOLECALCIFEROL 1,000 UNITS TABLET 1000 UNITS PO (10:49)
[2023-04-22] MEDS: COD LIVER OIL/ZINC OXIDE OINT 30 GM 1 APPLIC TOPICAL ×2 (10:50→20:49)
[2023-04-22 12:05] LABS: Glucose Point of Care 126 mg/dl (65-105)
[2023-04-22] MEDS: guaiFENesin 200 MG/10 ML UDC PO ×3 (13:51→21:06)
[2023-04-22 17:17] LABS: Glucose Point of Care 142 mg/dl (65-105)
--- NOTE | 2023-04-22 17:47 | PM.IMPN ---
Progress Note: A&P Assessment and Plan (1) COVID-19 virus infection: Code(s): U07.1 - COVID-19 Status: Acute Assessment and Plan: Continue with suctioning of secretions from the nasopharynx q.2 hours Oxygen via high flow trach collar, 30 FiO2 at 35 Day 2 Dexamethasone and Remdesivir Blood culture positive for GPC in clusters, ?Contaminant SPutum culture positive for Pseudomonas, sensitivity pending MEropenem and Vanc day 2 PT/OT {ul;m following (2) Chronic hypoxemic respiratory failure: Code(s): J96.11 - Chronic respiratory failure with hypoxia Status: Chronic Assessment and Plan: Continue with suctioning of secretions from the nasopharynx q.2 hours Oxygen via high flow trach collar, 30 FiO2 at 35 continue above care Pulm on board (3) Tracheostomy dependence: Code(s): Z93.0 - Tracheostomy status Status: Chronic Assessment and Plan: Suction Q2 (4) 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 Assessment and Plan: Feeding tube in place and used for medication administration (5) Aphasia: Code(s): R47.01 - Aphasia Status: Chronic (6) Seizure disorder: Code(s): G40.909 - Epilepsy, unspecified, not intractable, without status epilepticus Status: Chronic Assessment and Plan: PRN Ativan available and nurses aware to monitor for seizure activity as meropenem can interact with valproic acid (7) Atelectasis of right lung: Code(s): J98.11 - Atelectasis Status: Chronic (8) Tracheostomy in place: Code(s): Z93.0 - Tracheostomy status Status: Acute (9) Increased tracheal secretions: Code(s): J39.8 - Other specified diseases of upper respiratory tract Status: Acute Plan Continue with home meds. DVT prophylaxis on Sq lovenox Electrolyte replacement as per protocol. Subjective Date/time seen: 04/22/23 17:47 Interval history: patient comfortable at bedside Being managed for CoVID however Ct chest showed interval improvement in RUL aeration with mild re-expansion edema. Blood culture postive for GPC in clusters and Sputum culture positive for Pseudomonas sensitivity pending Review of Systems Review of Systems: unable to be obtained as patient is aphasic and lethargic ROS unobtainable: Yes unobtainable due to mental status Exam Narrative: General physical exam: patient is aphasic and lethargic Head/eyes: Atraumatic, EOMI, PERRLA ENT: Moist mucous membranes, nasal passages clear Neck: Supple, trach in place CVS: RRR, no murmurs Respiratory: Bilaterally decreased air entry in both lung dahl, mild B/L crackles, + scattered crackles Abdomen: Soft, non-tender, bowel sounds present, no organomegaly Extremities: No clubbing, no cyanosis, no edema, no calf tenderness; left leg previous amputated Musculoskeletal: unable to assess Skin: Warm, dry, no jaundice, no cyanosis Neurological: unable to be obtained as patient is aphasic and lethargic Psychiatric: unable to be obtained Objective Data Vital Signs Vital Signs: Vital Signs - 24 hr 04/21/23 18:00 04/21/23 20:15 04/21/23 20:18 Temperature 97.7 F Pulse Rate 86 75 81 Respiratory Rate 18 20 Blood Pressure 111/61 Pulse Oximetry 94 94 Oxygen Delivery High Flow Therapy with Tr Oxygen Flow Rate 35 Fraction of Inspired Oxygen 30 04/21/23 20:18 04/21/23 20:47 04/21/23 20:00 Temperature Pulse Rate 81 90 Respiratory Rate 20 20 Blood Pressure Pulse Oximetry 94 Oxygen Delivery High Flow Therapy with Tr Oxygen Flow Rate 35 Fraction of Inspired Oxygen 30 04/21/23 21:16 04/21/23 20:00 04/21/23 22:00 Temperature Pulse Rate 79 77 77 Respiratory Rate Blood Pressure Pulse Oximetry Oxygen Delivery Oxygen Flow Rate Fraction of Inspired Oxygen 04/21/23 23:23 04/22/23 00:00 04/22/23 00:00 Tem
[2023-04-22] MEDS: FUROSEMIDE INJ 40 MG/4 ML VIAL 20 MG IV PUSH (19:01)
[2023-04-22 20:22] LABS: Glucose Point of Care 144 mg/dl (65-105)
[2023-04-22] MEDS: ATORVASTATIN 40 MG TABLET FEED TUBE (20:51)
[2023-04-22] MEDS: REMDESIVIR 100 MG/NS 250 ML 100 MG/250 ML BAG 250 MG IVPB (21:06)
[2023-04-23] VITALS (16 sets, daily range): BP systolic 113–134; BP diastolic 60–69; PULSE 70–108; RESP 14–22; TEMP 36.2–37.1; O2SAT 94–99
[2023-04-23 00:18] LABS: Glucose Point of Care 109 mg/dl (65-105)
[2023-04-23] MEDS: guaiFENesin 200 MG/10 ML UDC PO ×6 (01:38→22:39)
[2023-04-23] MEDS: ALBUTEROL SULFATE NEB 2.5 MG/3 ML INH INHALATION ×3 (01:41→21:46)
[2023-04-23] MEDS: IPRATROPIUM BR 0.02% INH SOLN 0.5 MG/2.5 ML VIAL INHALATION ×3 (01:41→21:46)
[2023-04-23 02:38] LABS: Basophils Percent Auto 0.2 % (0.2-1.2); Eosinophils Percent Auto 0.5 % (0-4.4); Hematocrit 35.1 % (42.0-52.0); Hemoglobin 11.3 g/dL (14.0-18.0); Immature Granulocyte Absolute 0.01 K/mm3 (0.00-0.031); Immature Granulocyte Percent A 0.2 % (0-0.5); Immature Platelet Fraction Pct 13.5 % (0.9-11.2); Lymphocytes Absolute Auto 2.44 K/mm3 (0.9-3.2); Lymphocytes Percent Auto 43.7 % (18.3-44.2); Mean Corpuscular HGB Conc 32.2 g/dl (32-36); Mean Corpuscular Hemoglobin 31.4 pg (26-34); Mean Corpuscular Volume 97.5 fl (80-100); Mean Platelet Volume 13.1 fl (7.4-10.4); Monocytes Absolute Auto 0.4 K/mm3 (0.1-0.6); Monocytes Percent Auto 7.9 % (2.6-8.5); Neutrophils Absolute Auto 2.7 K/mm3 (1.3-6.7); Neutrophils Percent Auto 47.5 % (45.5-73.1); Platelet Count Result 97 k/mm3 (150-375); Red Cell Distribution Width 15.3 % (11.5-14.5); White Blood Count 5.6 K/mm3 (4.5-10.0)
[2023-04-23 02:51] LABS: Alanine Aminotransferase 13 U/L (6-50); Albumin Level 3.1 g/dL (3.5-5.1); Alkaline Phosphatase 85 U/L (38-126); Aspartate Amino Transferase 21 U/L (17-59); Bilirubin,Total 0.3 mg/dL (0.2-1.3); INR 1.1; Prothrombin Time 14.6 Seconds (11.1-14.7)
[2023-04-23 02:52] LABS: Anion Gap 6 mmol/L (8-16); Blood Urea Nitrogen 12 mg/dL (9-20); Calcium 8.6 mg/dL (8.4-10.2); Carbon Dioxide 27 mmol/L (22-30); Chloride 111 mmol/L (98-107); Estimated CRCL calculation 148 ml/min; Estimated Glomerular Filt Rate > 60; Glucose 99 mg/dL (65-110); Potassium 3.8 mmol/L (3.4-5.0); Sodium 144 mmol/L (137-145)
[2023-04-23 03:06] LABS: Vancomycin Trough 14.4 ug/mL (10.0-20.0)
[2023-04-23 03:10] LABS: Platelet Estimate Decreased (Adequate); Schistocytes None Seen (NORMAL)
[2023-04-23 03:11] LABS: Crenated RBC 1+ (NORMAL)
[2023-04-23] MEDS: MEROPENEM 1 GM/NS 100 ML 1 GM/100 ML BAG IVPB ×2 (07:00→16:17)
[2023-04-23] MEDS: FOLIC ACID 1 MG TABLET FEED TUBE (09:50)
[2023-04-23] MEDS: VALPROIC ACID LIQ 250 MG/5 ML ORAL SOLUTION UDC 500 MG PO ×4 (09:50→22:39)
[2023-04-23] MEDS: FAMOTIDINE 20 MG TABLET FEED TUBE ×2 (09:50→22:38)
[2023-04-23] MEDS: METOPROLOL TARTRATE 25 MG TABLET FEED TUBE ×2 (09:51→22:38)
[2023-04-23] MEDS: CLOBAZAM 5 MG 15 MG FEED TUBE ×2 (09:51→22:38)
[2023-04-23] MEDS: LACOSAMIDE (*CRX) 200 MG TABLET FEED TUBE ×2 (09:51→22:38)
[2023-04-23] MEDS: ZINC SULFATE 220 MG CAPSULE PO (09:51)
[2023-04-23] MEDS: DEXAMETHASONE 2 MG TABLET 6 MG FEED TUBE (09:51)
[2023-04-23] MEDS: THERAPEUTIC MULTIVITAMINS/MINERALS TAB (*BKC) 1 TABLET PO (09:51)
[2023-04-23] MEDS: THIAMINE HCL 100 MG TABLET FEED TUBE (09:51)
[2023-04-23] MEDS: PANTOPRAZOLE SODIUM IV 40 MG VIAL IV PUSH (09:51)
[2023-04-23] MEDS: CHOLECALCIFEROL 1,000 UNITS TABLET 1000 UNITS PO (09:51)
[2023-04-23] MEDS: ASCORBIC ACID 500 MG TABLET PO (09:51)
[2023-04-23] MEDS: COD LIVER OIL/ZINC OXIDE OINT 30 GM 1 APPLIC TOPICAL ×2 (10:01→22:39)
[2023-04-23] MEDS: levETIRAcetam ORAL SOL 500 MG/5 ML UDC 2000 MG FEED TUBE ×2 (10:01→22:38)
--- NOTE | 2023-04-23 11:04 | PCRCNOTE ---
Window of time for administration has passed. See next scheduled administration.
--- NOTE | 2023-04-23 11:16 | PM.IMPN ---
Progress Note: A&P Assessment and Plan (1) COVID-19 virus infection: Code(s): U07.1 - COVID-19 Status: Acute (2) Chronic hypoxemic respiratory failure: Code(s): J96.11 - Chronic respiratory failure with hypoxia Status: Chronic (3) Tracheostomy dependence: Code(s): Z93.0 - Tracheostomy status Status: Chronic (4) 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 (5) Acute and chronic respiratory failure: Qualifiers: Respiratory failure complication: hypoxia Qualified Code(s): J96.21 - Acute and chronic respiratory failure with hypoxia Code(s): J96.20 - Acute and chronic respiratory failure, unspecified whether with hypoxia or hypercapnia Status: Acute (6) Pneumonia: Qualifiers: Laterality: right Lung location: unspecified part of lung Pneumonia type: due to unspecified organism Qualified Code(s): J18.9 - Pneumonia, unspecified organism Code(s): J18.9 - Pneumonia, unspecified organism Status: Acute (7) Unilateral complete AKA: Code(s): S78.119A - Complete traumatic amputation at level between unspecified hip and knee, initial encounter Status: Chronic Plan Assessment and Plan (1) COVID-19 virus infection: ?Code(s): U07.1 - COVID-19 ?Status:?Acute ?Assessment and Plan: Continue with suctioning of secretions from the nasopharynx q.2 hours Oxygen via high flow trach collar, 30 FiO2 at 35 On dexamethasone and Remdesivir 1 of the 2 tube out of blood culture positive for Staphylococcus aureus and Staphylococcus epidermidis, maybe contamination SPutum culture positive for Pseudomonas, sensitivity to meropenem Continue meropenem and Vanc day Repeated blood cultures April 22 no growth so far PT/OT {ul;m following Community pneumonia superimposed better pneumonia Chest CT reveals lung parenchyma and airways: Tracheostomy tube terminates in the midthoracic trachea. Scattered mild bronchiectasis. Subsegmental bibasilar opacities. Linear and reticular opacities in the right upper lobe which is now expanded. Continue dexamethasone remdesivir (2) Chronic hypoxemic respiratory failure: ?Code(s): J96.11 - Chronic respiratory failure with hypoxia ?Status:?Chronic ?Assessment and Plan: Continue with suctioning of secretions from the nasopharynx q.2 hours Oxygen via high flow trach collar, 30 FiO2 at 35 continue above care Pulm on board (3) Tracheostomy dependence: ?Code(s): Z93.0 - Tracheostomy status ?Status:?Chronic ?Assessment and Plan: Suction Q2(4) Gastrostomy tube dependent: ?Code(s): Z93.1 - Gastrostomy status ?Status:?Chronic ?Assessment and Plan: Feeding tube in place and used for medication administration(5) Aphasia: ?Code(s): R47.01 - Aphasia ?Status:?Chronic (6) Seizure disorder: ?Code(s): G40.909 - Epilepsy, unspecified, not intractable, without status epilepticus ?Status:?Chronic ?Assessment and Plan: PRN Ativan available and nurses aware to monitor for seizure activity as meropenem can interact with valproic acid(7) Atelectasis of right lung: ?Code(s): J98.11 - Atelectasis ?Status:?Chronic (8) Tracheostomy in place: ?Code(s): Z93.0 - Tracheostomy status ?Status:?Acute (9) Increased tracheal secretions: ?Code(s): J39.8 - Other specified diseases of upper respiratory tract ?Status:?Acute Plan Continue with home meds. DVT prophylaxis on Sq lovenox Electrolyte replacement as per protocol. Subjective Date/time seen: 04/23/23 11:16 Interval history: I saw and examined patient today, patient could not speak, but has some shortness breath, patient is on high-flow oxygen via trach collar. No new issue over the night Exam Narrative: General physical exam: patient is aphasic and lethargic Head/eyes: Atraumatic, EOMI, PERRLA ENT: Moist mucous
[2023-04-23 12:16] LABS: Glucose Point of Care 99 mg/dl (65-105)
[2023-04-23 16:48] LABS: Glucose Point of Care 127 mg/dl (65-105)
[2023-04-23 20:35] LABS: Glucose Point of Care 163 mg/dl (65-105)
[2023-04-23] MEDS: ATORVASTATIN 40 MG TABLET FEED TUBE (22:38)
[2023-04-24] VITALS (21 sets, daily range): BP systolic 114–138; BP diastolic 61–66; PULSE 69–91; RESP 16–20; TEMP 36.2–36.9; O2SAT 94–97
[2023-04-24] MEDS: REMDESIVIR 100 MG/NS 250 ML 100 MG/250 ML BAG 250 MG IVPB ×2 (00:15→21:58)
[2023-04-24 01:03] LABS: Glucose Point of Care 99 mg/dl (65-105)
[2023-04-24] MEDS: guaiFENesin 200 MG/10 ML UDC PO ×6 (02:12→21:53)
--- NOTE | 2023-04-24 02:33 | PC.NURSE ---
Addendum entered by Shaista Breaux RN 04/24/23 02:35: Spoke with pharmacist Delilah at approximately 0005. Original Note: Per pharmacy, do not give remaining vanc dose. Instead give next dose as ordered and pharmacist will order trough level for today since patient lost IV access and it took several hours to obtain new access.
[2023-04-24] MEDS: IPRATROPIUM BR 0.02% INH SOLN 0.5 MG/2.5 ML VIAL INHALATION ×4 (02:45→20:39)
[2023-04-24] MEDS: ALBUTEROL SULFATE NEB 2.5 MG/3 ML INH INHALATION ×4 (02:45→20:39)
[2023-04-24 05:14] LABS: Basophils Percent Auto 0.3 % (0.2-1.2); Eosinophils Absolute Auto 0.1 K/mm3 (0-0.3); Eosinophils Percent Auto 1.1 % (0-4.4); Hematocrit 36.3 % (42.0-52.0); Hemoglobin 11.4 g/dL (14.0-18.0); Immature Granulocyte Absolute 0.02 K/mm3 (0.00-0.031); Immature Granulocyte Percent A 0.3 % (0-0.5); Lymphocytes Absolute Auto 3.27 K/mm3 (0.9-3.2); Lymphocytes Percent Auto 49.5 % (18.3-44.2); Mean Corpuscular HGB Conc 31.4 g/dl (32-36); Mean Corpuscular Hemoglobin 31.1 pg (26-34); Mean Corpuscular Volume 99.2 fl (80-100); Mean Platelet Volume 13.8 fl (7.4-10.4); Monocytes Absolute Auto 0.6 K/mm3 (0.1-0.6); Monocytes Percent Auto 8.3 % (2.6-8.5); Neutrophils Absolute Auto 2.7 K/mm3 (1.3-6.7); Neutrophils Percent Auto 40.5 % (45.5-73.1); Platelet Count Result 116 k/mm3 (150-375); Red Blood Count 3.66 M/mm3 (4.6-6.20); Red Cell Distribution Width 15.6 % (11.5-14.5); White Blood Count 6.6 K/mm3 (4.5-10.0)
[2023-04-24 05:23] LABS: Anion Gap 7 mmol/L (8-16); Blood Urea Nitrogen 13 mg/dL (9-20); Calcium 8.6 mg/dL (8.4-10.2); Carbon Dioxide 26 mmol/L (22-30); Chloride 108 mmol/L (98-107); Estimated CRCL calculation 155 ml/min; Estimated Glomerular Filt Rate > 60; Glucose 120 mg/dL (65-110); Potassium 3.6 mmol/L (3.4-5.0); Sodium 141 mmol/L (137-145)
[2023-04-24] MEDS: MEROPENEM 1 GM/NS 100 ML 1 GM/100 ML BAG IVPB ×4 (06:49→21:57)
[2023-04-24] MEDS: VALPROIC ACID LIQ 250 MG/5 ML ORAL SOLUTION UDC 500 MG PO ×4 (09:47→21:54)
[2023-04-24] MEDS: levETIRAcetam ORAL SOL 500 MG/5 ML UDC 2000 MG FEED TUBE ×2 (09:47→21:53)
[2023-04-24] MEDS: ENOXAPARIN 40 MG/0.4 ML SYRINGE SUB-Q (09:47)
[2023-04-24] MEDS: PANTOPRAZOLE SODIUM IV 40 MG VIAL IV PUSH (09:47)
[2023-04-24] MEDS: FOLIC ACID 1 MG TABLET FEED TUBE (09:48)
[2023-04-24] MEDS: METOPROLOL TARTRATE 25 MG TABLET FEED TUBE ×2 (09:48→21:53)
[2023-04-24] MEDS: ZINC SULFATE 220 MG CAPSULE PO (09:48)
[2023-04-24] MEDS: FAMOTIDINE 20 MG TABLET FEED TUBE ×2 (09:48→21:53)
[2023-04-24] MEDS: DEXAMETHASONE 2 MG TABLET 6 MG FEED TUBE (09:48)
[2023-04-24] MEDS: CHOLECALCIFEROL 1,000 UNITS TABLET 1000 UNITS PO (09:48)
[2023-04-24] MEDS: THERAPEUTIC MULTIVITAMINS/MINERALS TAB (*BKC) 1 TABLET PO (09:48)
[2023-04-24] MEDS: LACOSAMIDE (*CRX) 200 MG TABLET FEED TUBE ×2 (09:48→21:53)
[2023-04-24] MEDS: CLOBAZAM 5 MG 15 MG FEED TUBE ×2 (09:48→21:53)
[2023-04-24] MEDS: ASCORBIC ACID 500 MG TABLET PO (09:48)
[2023-04-24] MEDS: THIAMINE HCL 100 MG TABLET FEED TUBE (09:48)
[2023-04-24] MEDS: ACETAMINOPHEN 325 MG TABLET 650 MG PO (10:05)
--- NOTE | 2023-04-24 10:35 | PM.IMPN ---
Progress Note: A&P Assessment and Plan (1) COVID-19 virus infection: Code(s): U07.1 - COVID-19 Status: Acute (2) Chronic hypoxemic respiratory failure: Code(s): J96.11 - Chronic respiratory failure with hypoxia Status: Chronic (3) Tracheostomy dependence: Code(s): Z93.0 - Tracheostomy status Status: Chronic (4) 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 (5) Acute and chronic respiratory failure: Qualifiers: Respiratory failure complication: hypoxia Qualified Code(s): J96.21 - Acute and chronic respiratory failure with hypoxia Code(s): J96.20 - Acute and chronic respiratory failure, unspecified whether with hypoxia or hypercapnia Status: Acute (6) Pneumonia: Qualifiers: Laterality: right Lung location: unspecified part of lung Pneumonia type: due to unspecified organism Qualified Code(s): J18.9 - Pneumonia, unspecified organism Code(s): J18.9 - Pneumonia, unspecified organism Status: Acute (7) Unilateral complete AKA: Code(s): S78.119A - Complete traumatic amputation at level between unspecified hip and knee, initial encounter Status: Chronic Plan Assessment and Plan (1) COVID-19 virus infection: ?Code(s): U07.1 - COVID-19 ?Status:?Acute ?Assessment and Plan: Community pneumonia superimposed viral pneumonia Chest CT reveals lung parenchyma and airways: Tracheostomy tube terminates in the midthoracic trachea. Scattered mild bronchiectasis. Subsegmental bibasilar opacities. Linear and reticular opacities in the right upper lobe which is now expanded. Continue with suctioning of secretions from the nasopharynx q.2 hours Oxygen via high flow trach collar, 30 FiO2 at 35 On dexamethasone and Remdesivir SPutum culture positive for Pseudomonas, sensitivity to meropenem Continue meropenem and Vanc Continue dexamethasone remdesivir 04/24 Patient has less secretion than yesterday from trach collar Bacteremia 1 of the 2 tube out of blood culture positive for Staphylococcus aureus and Staphylococcus epidermidis, maybe contamination Repeated blood cultures April 22 no growth so far PT/OT (2) Chronic hypoxemic respiratory failure: ?Code(s): J96.11 - Chronic respiratory failure with hypoxia ?Status:?Chronic ?Assessment and Plan: Continue with suctioning of secretions from the nasopharynx q.2 hours Oxygen via high flow trach collar, 30 FiO2 at 35 continue above care Pulm on board (3) Tracheostomy dependence: ?Code(s): Z93.0 - Tracheostomy status ?Status:?Chronic ?Assessment and Plan: Suction Q2 (4) Gastrostomy tube dependent: ?Code(s): Z93.1 - Gastrostomy status ?Status:?Chronic ?Assessment and Plan: Feeding tube in place and used for medication administration (5) Aphasia: ?Code(s): R47.01 - Aphasia ?Status:?Chronic (6) Seizure disorder: ?Code(s): G40.909 - Epilepsy, unspecified, not intractable, without status epilepticus ?Status:?Chronic ?Assessment and Plan: PRN Ativan available and nurses aware to monitor for seizure activity as meropenem can interact with valproic acid(7) Atelectasis of right lung: ?Code(s): J98.11 - Atelectasis ?Status:?Chronic (8) Tracheostomy in place: ?Code(s): Z93.0 - Tracheostomy status ?Status:?Acute (9) Increased tracheal secretions: ?Code(s): J39.8 - Other specified diseases of upper respiratory tract ?Status:?Acute Plan Continue with home meds. DVT prophylaxis on Sq lovenox Electrolyte replacement as per protocol. Subjective Date/time seen: 04/24/23 10:35 Interval history: I saw and examined patient today. Patient has a tracheostomy, on high-flow oxygen. the patient is nonverbal, patient has no respiratory distress. No obvious secretion from tracheostomy. Patient seems more comfortable than yesterday.
[2023-04-24 12:48] LABS: Glucose Point of Care 134 mg/dl (65-105)
[2023-04-24] MEDS: COD LIVER OIL/ZINC OXIDE OINT 30 GM 1 APPLIC TOPICAL ×2 (14:52→21:53)
[2023-04-24 18:27] LABS: Glucose Point of Care 116 mg/dl (65-105)
[2023-04-24 20:56] LABS: Glucose Point of Care 139 mg/dl (65-105)
[2023-04-24] MEDS: ATORVASTATIN 40 MG TABLET FEED TUBE (21:52)
[2023-04-24] MEDS: polyethylene glycoL 3350 17 GM POWD.PACK FEED TUBE (21:53)
[2023-04-24] MEDS: CENTRAL LINE FLUSH 10 ML IV PUSH (21:58)
[2023-04-25] VITALS (26 sets, daily range): BP systolic 129–135; BP diastolic 60–68; PULSE 65–96; RESP 16–20; TEMP 36.4–37; O2SAT 95–98
[2023-04-25] MEDS: guaiFENesin 200 MG/10 ML UDC PO ×3 (01:01→09:35)
[2023-04-25] MEDS: ALBUTEROL SULFATE NEB 2.5 MG/3 ML INH INHALATION ×4 (01:59→20:21)
[2023-04-25] MEDS: IPRATROPIUM BR 0.02% INH SOLN 0.5 MG/2.5 ML VIAL INHALATION ×4 (01:59→20:22)
[2023-04-25 03:32] LABS: Basophils Percent Auto 0.2 % (0.2-1.2); Eosinophils Percent Auto 0.7 % (0-4.4); Hematocrit 33.1 % (42.0-52.0); Hemoglobin 10.6 g/dL (14.0-18.0); Immature Granulocyte Absolute 0.03 K/mm3 (0.00-0.031); Immature Granulocyte Percent A 0.5 % (0-0.5); Lymphocytes Absolute Auto 2.94 K/mm3 (0.9-3.2); Lymphocytes Percent Auto 50.3 % (18.3-44.2); Mean Corpuscular Hemoglobin 31.2 pg (26-34); Mean Corpuscular Volume 97.4 fl (80-100); Mean Platelet Volume 12.4 fl (7.4-10.4); Monocytes Absolute Auto 0.7 K/mm3 (0.1-0.6); Monocytes Percent Auto 11.3 % (2.6-8.5); Neutrophils Absolute Auto 2.2 K/mm3 (1.3-6.7); Nucleated Red Blood Cells Perc 0.3 % (0.0-0.2); Platelet Count Result 146 k/mm3 (150-375); Red Cell Distribution Width 15.8 % (11.5-14.5); White Blood Count 5.8 K/mm3 (4.5-10.0)
[2023-04-25 03:42] LABS: Alanine Aminotransferase 16 U/L (6-50); Albumin Level 2.7 g/dL (3.5-5.1); Alkaline Phosphatase 90 U/L (38-126); Anion Gap 4 mmol/L (8-16); Aspartate Amino Transferase 24 U/L (17-59); Bilirubin,Total 0.2 mg/dL (0.2-1.3); Blood Urea Nitrogen 11 mg/dL (9-20); Calcium 8.5 mg/dL (8.4-10.2); Carbon Dioxide 29 mmol/L (22-30); Chloride 108 mmol/L (98-107); Estimated CRCL calculation 149 ml/min; Estimated Glomerular Filt Rate > 60; Glucose 106 mg/dL (65-110); Potassium 3.5 mmol/L (3.4-5.0); Sodium 141 mmol/L (137-145)
[2023-04-25 03:59] LABS: INR 1.1; Prothrombin Time 15.1 Seconds (11.1-14.7)
[2023-04-25 04:15] LABS: Vancomycin Trough 14.7 ug/mL (10.0-20.0)
[2023-04-25] MEDS: MEROPENEM 1 GM/NS 100 ML 1 GM/100 ML BAG IVPB ×3 (05:04→21:52)
[2023-04-25] MEDS: CENTRAL LINE FLUSH 10 ML IV PUSH ×3 (06:30→21:52)
--- NOTE | 2023-04-25 09:25 | PM.PNPUL ---
Progress Note: A&P Assessment and Plan (1) COVID-19 virus infection: Code(s): U07.1 - COVID-19 Status: Acute Assessment and Plan: 04/22: Diagnosed with a positive SARS-CoV-2 at the halfway on 04/20, admitted here the same day. He had decreased oxygen saturation compared to normal, PO2 was 58, normal now on only 28% and 35 L/min. His labs are consistent with COVID, and his other viral swabs were negative, influenza a, influenza B and RSV. His sputum is being sent for evaluation. In the past he has had positive sputum growing Acinetobacter, Pseudomonas and MRSA. His coverage has been extended to cover these organisms with meropenem and vanco. He is currently on oral dexamethasone, stopped remdesivir; 04/21 he started Paxlovid-two 150mg Nirmatrelvir with one 100mg Ritonavir together twice daily for 5 days. 04/25 patient remains on Airvo 30% FiO2 and 35 L with saturations 94%. I decreased him to room air and after 10 minutes patient's saturations remain 94%. He is afebrile. White blood cell count 5.8, creatinine 0.4. Weight is 70.2 kg. He shakes his head no to any respiratory issues. He still is having some secretions per the nursing staff. Plan: Patient has improved. I was able to decrease his oxygen to room air today which is his baseline. He is completing day 5 of remdesivir and dexamethasone today and would discontinue. From a pulmonary perspective will continue vancomycin and meropenem for total of 7 days, today is day 5. Repeat blood cultures are negative. I will change guaifenesin to 600 q.i.d. per tube. Continue albuterol and ipratropium nebulizers Q 6 hours. Continue suction Q 2 hours. Continue Vest therapy. When patient is discharged to the nursing facility continue these pulmonary medications: Albuterol 2.5 mg nebulized and ipratropium 0.5 mg nebulized q.i.d. Vibratory vest therapy and chest PT QID Tracheal suctioning q.2 hours throughout the day and night Guaifenesin 600 mg per G tube q.i.d. Humidified oxygen per facilities protocol to maintain saturation 90-94%.? If he requires no oxygen he should still have humidified room air. Discussed with Dr. Zhoa, will sign off, call with questions. (2) Chronic hypoxemic respiratory failure: Code(s): J96.11 - Chronic respiratory failure with hypoxia Status: Chronic Assessment and Plan: 04/22: He has a chronic trach, Shiley 7.5 mm inner diameter, cuffless; this was a new model for him Mar 25, [address] Goode changed to this. He is not leaking secretions from around the stoma. He is able to voice some words without difficulty. He had generous amounts of secretions per his RN, Nevaeh. 04/25: I have decreased his oxygen to 21% this morning. Goal saturation 90-94%. (3) Tracheostomy dependence: Code(s): Z93.0 - Tracheostomy status Status: Chronic Assessment and Plan: long standing condition Subjective Date/time seen: 04/25/23 09:25 Interval history: 04/21 new consult;? Bi Tabor is a 63-year-old man known to our service, last pulmonary consult 03/21/2023. See numerous admissions during the last year. He is a permanent halfway resident. He had a (+) COVID test yesterday 04/20 in the [place]. He came to the ER because his saturation was lower than usual, in the 80% range. He is on dexamethasone 6 mg po x 10 days and remdesivir with frequent suctioning to clear increased amount of trach secretions. He is also on Vancomycin and Meropenem to cover his prior organisms. ? PMH: chronic respiratory failure, status post permanent tracheostomy, peg tube placement, resident of a local halfway; severe seizure disorder.? Stroke.? Aphasia.? Right AKA.? Frequent collapse of the right lung, conservative treatment with a frequent suctioning, chest physio-therapy, and nebulized Mucomyst.?Staph aureus and resistant Pseudomonas.? In the past he grew Acinetobacter baumannii.? hospital follow up : 04/22? follow up for COVID infection,
[2023-04-25] MEDS: levETIRAcetam ORAL SOL 500 MG/5 ML UDC 2000 MG FEED TUBE ×2 (09:35→20:39)
[2023-04-25] MEDS: ENOXAPARIN 40 MG/0.4 ML SYRINGE SUB-Q (09:35)
[2023-04-25] MEDS: VALPROIC ACID LIQ 250 MG/5 ML ORAL SOLUTION UDC 500 MG PO ×4 (09:35→20:40)
[2023-04-25] MEDS: polyethylene glycoL 3350 17 GM POWD.PACK FEED TUBE ×2 (09:35→20:40)
[2023-04-25] MEDS: PANTOPRAZOLE SODIUM IV 40 MG VIAL IV PUSH (09:35)
[2023-04-25] MEDS: THERAPEUTIC MULTIVITAMINS/MINERALS TAB (*BKC) 1 TABLET PO (09:36)
[2023-04-25] MEDS: DEXAMETHASONE 2 MG TABLET 6 MG FEED TUBE (09:36)
[2023-04-25] MEDS: ASCORBIC ACID 500 MG TABLET PO (09:36)
[2023-04-25] MEDS: CHOLECALCIFEROL 1,000 UNITS TABLET 1000 UNITS PO (09:36)
[2023-04-25] MEDS: THIAMINE HCL 100 MG TABLET FEED TUBE (09:36)
[2023-04-25] MEDS: CLOBAZAM 5 MG 15 MG FEED TUBE ×2 (09:36→20:39)
[2023-04-25] MEDS: METOPROLOL TARTRATE 25 MG TABLET FEED TUBE ×2 (09:36→20:40)
[2023-04-25] MEDS: FAMOTIDINE 20 MG TABLET FEED TUBE ×2 (09:36→20:39)
[2023-04-25] MEDS: COD LIVER OIL/ZINC OXIDE OINT 30 GM 1 APPLIC TOPICAL ×2 (09:37→20:39)
[2023-04-25] MEDS: LACOSAMIDE (*CRX) 200 MG TABLET FEED TUBE ×2 (09:37→20:39)
[2023-04-25] MEDS: FOLIC ACID 1 MG TABLET FEED TUBE (09:37)
[2023-04-25] MEDS: ZINC SULFATE 220 MG CAPSULE PO (09:37)
--- NOTE | 2023-04-25 09:55 | PM.IMPN ---
Progress Note: A&P Assessment and Plan (1) COVID-19 virus infection: Code(s): U07.1 - COVID-19 Status: Acute (2) Chronic hypoxemic respiratory failure: Code(s): J96.11 - Chronic respiratory failure with hypoxia Status: Chronic (3) Tracheostomy dependence: Code(s): Z93.0 - Tracheostomy status Status: Chronic (4) 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 (5) Acute and chronic respiratory failure: Qualifiers: Respiratory failure complication: hypoxia Qualified Code(s): J96.21 - Acute and chronic respiratory failure with hypoxia Code(s): J96.20 - Acute and chronic respiratory failure, unspecified whether with hypoxia or hypercapnia Status: Acute (6) Pneumonia: Qualifiers: Laterality: right Lung location: unspecified part of lung Pneumonia type: due to unspecified organism Qualified Code(s): J18.9 - Pneumonia, unspecified organism Code(s): J18.9 - Pneumonia, unspecified organism Status: Acute (7) Unilateral complete AKA: Code(s): S78.119A - Complete traumatic amputation at level between unspecified hip and knee, initial encounter Status: Chronic Plan Assessment and Plan (1) COVID-19 virus infection: ?Code(s): U07.1 - COVID-19 ?Status:?Acute ?Assessment and Plan: Community pneumonia superimposed viral pneumonia Chest CT reveals lung parenchyma and airways: Tracheostomy tube terminates in the midthoracic trachea. Scattered mild bronchiectasis. Subsegmental bibasilar opacities. Linear and reticular opacities in the right upper lobe which is now expanded. Continue with suctioning of secretions from the nasopharynx q.2 hours Oxygen via high flow trach collar, 30 FiO2 at 35 On dexamethasone and Remdesivir SPutum culture positive for Pseudomonas, sensitivity to meropenem Continue meropenem and Vanc till 04/27 Continue dexamethasone remdesivir today the last dose Patient has less secretion than yesterday from trach collar Bacteremia 1 of the 2 tube out of blood culture positive for Staphylococcus aureus and Staphylococcus epidermidis, maybe contamination Repeated blood cultures April 22 no growth so far (2) Chronic hypoxemic respiratory failure: ?Code(s): J96.11 - Chronic respiratory failure with hypoxia ?Status:?Chronic ?Assessment and Plan: Continue with suctioning of secretions from the nasopharynx q.2 hours prn received Oxygen via high flow trach collar, 30 FiO2 at 35 off O2 now (3) Tracheostomy dependence: ?Code(s): Z93.0 - Tracheostomy status ?Status:?Chronic ?Assessment and Plan: Suction Q2 Continue Vapotherm to provide humidity (4) Gastrostomy tube dependent: ?Code(s): Z93.1 - Gastrostomy status ?Status:?Chronic ?Assessment and Plan: Feeding tube in place and used for medication administration (5) Aphasia: ?Code(s): R47.01 - Aphasia ?Status:?Chronic (6) Seizure disorder: ?Code(s): G40.909 - Epilepsy, unspecified, not intractable, without status epilepticus ?Status:?Chronic ?Assessment and Plan: PRN Ativan available and nurses aware to monitor for seizure activity as meropenem can interact with valproic acid(7) Atelectasis of right lung: ?Code(s): J98.11 - Atelectasis ?Status:?Chronic (8) Tracheostomy in place: ?Code(s): Z93.0 - Tracheostomy status ?Status:?Acute (9) Increased tracheal secretions: ?Code(s): J39.8 - Other specified diseases of upper respiratory tract ?Status:?Acute Plan Continue with home meds. DVT prophylaxis on Sq lovenox Electrolyte replacement as per protocol. Subjective Date/time seen: 04/25/23 09:55 Interval history: I saw and examined patient today, patient was alert, unable to speak because of tracheostomy. Patient is off o2 therapy. no obvious distress. No obvious secretion from tracheostomy.
[2023-04-25 11:56] LABS: Glucose Point of Care 130 mg/dl (65-105)
[2023-04-25] MEDS: guaiFENesin 200 MG/10 ML UDC 600 MG PO (16:54)
[2023-04-25 18:05] LABS: Glucose Point of Care 166 mg/dl (65-105)
[2023-04-25] MEDS: ATORVASTATIN 40 MG TABLET FEED TUBE (20:39)
[2023-04-26] VITALS (22 sets, daily range): BP systolic 133–139; BP diastolic 73–75; PULSE 68–89; RESP 18–20; TEMP 36.3–37; O2SAT 97–100
[2023-04-26] MEDS: guaiFENesin 200 MG/10 ML UDC 600 MG PO ×4 (00:05→18:13)
[2023-04-26 00:25] LABS: Glucose Point of Care 104 mg/dl (65-105)
[2023-04-26] MEDS: IPRATROPIUM BR 0.02% INH SOLN 0.5 MG/2.5 ML VIAL INHALATION ×4 (02:32→20:08)
[2023-04-26] MEDS: ALBUTEROL SULFATE NEB 2.5 MG/3 ML INH INHALATION ×4 (02:32→20:09)
[2023-04-26] MEDS: CENTRAL LINE FLUSH 10 ML IV PUSH ×2 (05:25→22:22)
[2023-04-26] MEDS: MEROPENEM 1 GM/NS 100 ML 1 GM/100 ML BAG IVPB ×3 (05:25→22:22)
[2023-04-26 05:31] LABS: Basophils Percent Auto 0.1 % (0.2-1.2); Eosinophils Absolute Auto 0.1 K/mm3 (0-0.3); Eosinophils Percent Auto 1.1 % (0-4.4); Hematocrit 36.2 % (42.0-52.0); Hemoglobin 11.5 g/dL (14.0-18.0); Immature Granulocyte Absolute 0.05 K/mm3 (0.00-0.031); Immature Granulocyte Percent A 0.7 % (0-0.5); Immature Platelet Fraction Pct 12.1 % (0.9-11.2); Lymphocytes Absolute Auto 3.11 K/mm3 (0.9-3.2); Lymphocytes Percent Auto 42.9 % (18.3-44.2); Mean Corpuscular HGB Conc 31.8 g/dl (32-36); Mean Corpuscular Hemoglobin 31.4 pg (26-34); Mean Corpuscular Volume 98.9 fl (80-100); Mean Platelet Volume 13.3 fl (7.4-10.4); Monocytes Absolute Auto 0.9 K/mm3 (0.1-0.6); Monocytes Percent Auto 12.4 % (2.6-8.5); Neutrophils Absolute Auto 3.1 K/mm3 (1.3-6.7); Neutrophils Percent Auto 42.8 % (45.5-73.1); Nucleated Red Blood Cells Perc 0.4 % (0.0-0.2); Platelet Count Result 173 k/mm3 (150-375); Red Blood Count 3.66 M/mm3 (4.6-6.20); Red Cell Distribution Width 15.8 % (11.5-14.5); White Blood Count 7.3 K/mm3 (4.5-10.0)
[2023-04-26 05:46] LABS: Anion Gap 4 mmol/L (8-16); Blood Urea Nitrogen 10 mg/dL (9-20); Calcium 8.7 mg/dL (8.4-10.2); Carbon Dioxide 28 mmol/L (22-30); Chloride 108 mmol/L (98-107); Estimated CRCL calculation 152 ml/min; Estimated Glomerular Filt Rate > 60; Glucose 89 mg/dL (65-110); Potassium 3.8 mmol/L (3.4-5.0); Sodium 140 mmol/L (137-145)
[2023-04-26] MEDS: ALTEPLASE 2 MG VIAL (CATHFLO) IV PUSH (06:06)
[2023-04-26] MEDS: ZINC SULFATE 220 MG CAPSULE PO (09:32)
[2023-04-26] MEDS: LACOSAMIDE (*CRX) 200 MG TABLET FEED TUBE ×2 (09:32→20:24)
[2023-04-26] MEDS: METOPROLOL TARTRATE 25 MG TABLET FEED TUBE ×2 (09:32→20:25)
[2023-04-26] MEDS: CHOLECALCIFEROL 1,000 UNITS TABLET 1000 UNITS PO (09:32)
[2023-04-26] MEDS: THERAPEUTIC MULTIVITAMINS/MINERALS TAB (*BKC) 1 TABLET PO (09:33)
[2023-04-26] MEDS: CLOBAZAM 5 MG 15 MG FEED TUBE ×2 (09:33→20:24)
[2023-04-26] MEDS: polyethylene glycoL 3350 17 GM POWD.PACK FEED TUBE ×2 (09:33→20:25)
[2023-04-26] MEDS: FAMOTIDINE 20 MG TABLET FEED TUBE ×2 (09:33→20:24)
[2023-04-26] MEDS: ENOXAPARIN 40 MG/0.4 ML SYRINGE SUB-Q (09:33)
[2023-04-26] MEDS: FOLIC ACID 1 MG TABLET FEED TUBE (09:33)
[2023-04-26] MEDS: THIAMINE HCL 100 MG TABLET FEED TUBE (09:33)
[2023-04-26] MEDS: ASCORBIC ACID 500 MG TABLET PO (09:39)
[2023-04-26] MEDS: levETIRAcetam ORAL SOL 500 MG/5 ML UDC 2000 MG FEED TUBE ×2 (09:42→20:24)
[2023-04-26] MEDS: PANTOPRAZOLE SODIUM IV 40 MG VIAL IV PUSH (09:42)
[2023-04-26] MEDS: COD LIVER OIL/ZINC OXIDE OINT 30 GM 1 APPLIC TOPICAL ×2 (09:42→20:24)
[2023-04-26] MEDS: VALPROIC ACID LIQ 250 MG/5 ML ORAL SOLUTION UDC 500 MG PO ×4 (09:42→20:25)
--- NOTE | 2023-04-26 11:27 | PCNFU ---
Nutrition Follow-Up Complete: Inadequate oral intake related to dysphagia, need for PEG tube as evidenced by need for full tube feeding. Goal:Meet estimated protein energy needs Pt current nutrition is NPO, Tube feeding: Jevity 1.5 @ 50ml/hr with 100ml flush q 4 hrs = 1650kcals, 70g protein, 1436ml free water Nutrition recommendation: continue with current plan of care. Last recorded weight is 69.3 kg. Bowel Motility: +BM 04/23 Labs Reviewed: Hgb: 11.5, HCT: 36.5, Cr:0.4 Meds Noted: lovenox, vit C, vit B1, MVI, protonix Skin: no skin issues noted Additional Notes: Pt continues on same tube feed per RD recommendations. Tolerating well. Continue with current plan of care. Monitoring tolerance, plan of care, weights, labs Follow up Tuesdays and Fridays
--- NOTE | 2023-04-26 15:25 | PM.DS ---
DS: Admitting Diagnosis Discharge Date 04/26/2023 Admitting Diagnosis patient transferred to the ER from [facility] for evaluation secondary to hypoxia DS: Discharge Diagnosis Discharge Diagnosis (1) COVID-19 virus infection: Code(s): U07.1 - COVID-19 Status: Acute (2) Chronic hypoxemic respiratory failure: Code(s): J96.11 - Chronic respiratory failure with hypoxia Status: Chronic (3) Tracheostomy dependence: Code(s): Z93.0 - Tracheostomy status Status: Chronic (4) 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 (5) Acute and chronic respiratory failure: Qualifiers: Respiratory failure complication: hypoxia Qualified Code(s): J96.21 - Acute and chronic respiratory failure with hypoxia Code(s): J96.20 - Acute and chronic respiratory failure, unspecified whether with hypoxia or hypercapnia Status: Acute (6) Pneumonia: Qualifiers: Laterality: right Lung location: unspecified part of lung Pneumonia type: due to unspecified organism Qualified Code(s): J18.9 - Pneumonia, unspecified organism Code(s): J18.9 - Pneumonia, unspecified organism Status: Acute (7) Unilateral complete AKA: Code(s): S78.119A - Complete traumatic amputation at level between unspecified hip and knee, initial encounter Status: Chronic Plan Assessment and Plan (1) COVID-19 virus infection: ?Code(s): U07.1 - COVID-19 ?Status:?Acute ?Assessment and Plan: Community pneumonia superimposed viral pneumonia Chest CT reveals lung parenchyma and airways: Tracheostomy tube terminates in the midthoracic trachea. Scattered mild bronchiectasis. Subsegmental bibasilar opacities. Linear and reticular opacities in the right upper lobe which is now expanded. Continue with suctioning of secretions from the nasopharynx q.2 hours Oxygen via high flow trach collar, 30 FiO2 at 35 On dexamethasone and Remdesivir SPutum culture positive for Pseudomonas, sensitivity to meropenem Continue meropenem and Vanc till 04/27 Continue dexamethasone remdesivir today the last dose Patient has less secretion than yesterday from trach collar Bacteremia 1 of the 2 tube out of blood culture positive for Staphylococcus aureus and Staphylococcus epidermidis, maybe contamination Repeated blood cultures April 22 no growth so far (2) Chronic hypoxemic respiratory failure: ?Code(s): J96.11 - Chronic respiratory failure with hypoxia ?Status:?Chronic ?Assessment and Plan: Continue with suctioning of secretions from the nasopharynx q.2 hours prn received Oxygen via high flow trach collar, 30 FiO2 at 35 off O2 now (3) Tracheostomy dependence: ?Code(s): Z93.0 - Tracheostomy status ?Status:?Chronic ?Assessment and Plan: Suction Q2 Continue Vapotherm to provide humidity (4) Gastrostomy tube dependent: ?Code(s): Z93.1 - Gastrostomy status ?Status:?Chronic ?Assessment and Plan: Feeding tube in place and used for medication administration (5) Aphasia: ?Code(s): R47.01 - Aphasia ?Status:?Chronic (6) Seizure disorder: ?Code(s): G40.909 - Epilepsy, unspecified, not intractable, without status epilepticus ?Status:?Chronic ?Assessment and Plan: PRN Ativan available and nurses aware to monitor for seizure activity as meropenem can interact with valproic acid(7) Atelectasis of right lung: ?Code(s): J98.11 - Atelectasis ?Status:?Chronic (8) Tracheostomy in place: ?Code(s): Z93.0 - Tracheostomy status ?Status:?Acute (9) Increased tracheal secretions: ?Code(s): J39.8 - Other specified diseases of upper respiratory tract ?Status:?Acute Plan Continue with home meds. DVT prophylaxis on Sq lovenox Electrolyte replacement as per protocol. DS: Summary Hospital Course Hospital Course: He is a very unfortunate 63 years old mal
[2023-04-26] MEDS: NEOMYCIN/POLYMYXIN/BACITRACIN OINTMENT PACKET 1 PACKET (17:39)
--- NOTE | 2023-04-26 17:55 | PC.NURSE ---
Report called to ALFRED Alanis @ [facility]. Pt awaiting ambulance for transportation back to [place].
[2023-04-26] MEDS: ATORVASTATIN 40 MG TABLET FEED TUBE (20:24)
== END 2023-04-26 23:00 | DRG 137 ==
LOC: ANHED 23:14 → ANHIMU 04-21 00:49
PROVIDERS: Internal Medicine Critical Care Medicine; Nurse Practitioner; Admitting Provider Family Medicine; Emergency Provider Emergency Medicine; Visit Provider Family Medicine
DX: U07.1 COVID-19 (principal); J96.11 Chronic respiratory failure with hypoxia; J12.82 Pneumonia due to coronavirus disease 2019; J96.21 Acute and chronic respiratory failure with hypoxia; J18.9 Pneumonia, unspecified organism; B96.5 Pseudomonas (aeruginosa) (mallei) (pseudomallei) as the cause of diseases classified elsewhere; J44.0 Chronic obstructive pulmonary disease with (acute) lower respiratory infection; N40.0 Benign prostatic hyperplasia without lower urinary tract symptoms; D50.9 Iron deficiency anemia, unspecified; G40.909 Epilepsy, unspecified, not intractable, without status epilepticus; J98.11 Atelectasis; R47.01 Aphasia; T17.500A Unspecified foreign body in bronchus causing asphyxiation, initial encounter; F01.52 Vascular dementia, unspecified severity, with psychotic disturbance; J39.8 Other specified diseases of upper respiratory tract; Z93.0 Tracheostomy status; Z86.73 Personal history of transient ischemic attack (TIA), and cerebral infarction without residual deficits; Z93.1 Gastrostomy status; Z89.612 Acquired absence of left leg above knee; Z79.82 Long term (current) use of aspirin
CPT/HCPCS: 36415; 36569; 36600; 71045; 71250; 80048; 80053; 80076; 80202; 82805; 82948; 83605; 83615; 83735; 83880; 84100; 85025; 85055; 85380; 85610; 85730; 86140; 87040; 87070; 87077; 87186; 87205; 87637; 87641; 94640; 94669; 99285; A4629; A9270; C1751; C9113; J0248; J1650; J1940; J2185; J2997; J3370; J7030; J8540

== ENCOUNTER 2023-05-19 01:39 | Emergency (ER) | payer OTHER, SELFPAY ==
[2023-05-19] VITALS (15 sets, daily range): BP systolic 133–157; BP diastolic 81–91; PULSE 78–98; RESP 18–32; TEMP 36.4–36.8; O2SAT 94–96
--- NOTE | ~2023-05-19 | XR_ITS ---
Clinical Indication: Shortness of breath PA and lateral views of the chest: Comparison: 04/26/2023 Findings: Tracheostomy cannula present. Small left pleural effusion is present. There is retrocardiac consolidation with haziness at the right lung base. Cardiomediastinal silhouette is within normal li mits. Bones and soft tissues are unremarkable. Impression: Small left pleural effusion. Bibasilar airspace disease could reflect pulmonary edema/atelectasis versus pneumonia. Correlate clin ically. Tracheostomy cannula. Reviewed, dictated and finalized at location . E VISITOR Impression: Small left pleural effusion. Bibasilar airspace disease could reflect pulmonary edema/atelectasis versus pne umonia. Correlate clinically. Tracheostomy cannula.
--- NOTE | 2023-05-19 02:18 | PC.NURSE ---
Patient was initially on 5L/min via non-rebreather over the patient's trach. Patient's oxygen was 96 on room air after non-rebreather was taken off over trach.
--- NOTE | 2023-05-19 02:23 | ED.GENADULT ---
HPI - General Adult General Chief complaint: Shortness of Breath/Dyspnea Stated complaint: ams, low pulse ox Time Seen by Provider: 05/19/23 01:53 Source: EMS and old records reviewed Mode of arrival: EMS Limitations: physical limitation History of Present Illness HPI narrative: Patient is a 63-year-old male presents to the emergency department via EMS from [facility] for reports of patient having decreased responsiveness and found to have oxygen saturations in the high 60s and some suctioning was performed of the tracheostomy mucus was removed and patient began saturating in the mid to high 90s on room air. Patient is unable to provide any verbal responses but does shake his head and mouth some responses mainly providing yes or no answers. Patient was reportedly recently diagnosed with pneumonia yesterday and is on antibiotics including Rocephin and a floxacillin. Patient denies any chest pain, abdominal pain, difficulty breathing, vomiting. Related Data Home Medications Medication Instructions Recorded Confirmed atorvastatin 40 mg tablet 40 mg feeding tube QHS 11/14/22 04/21/23 folic acid 1 mg tablet 1 mg feeding tube DAILY 11/14/22 04/21/23 lacosamide 200 mg tablet 200 mg feeding tube Q12H 11/14/22 04/21/23 aspirin 81 mg chewable tablet 81 mg feeding tube DAILY 11/15/22 04/21/23 metoprolol tartrate 25 mg tablet 25 mg feeding tube Q12H 12/18/22 04/21/23 polyethylene glycol 3350 17 17 g feeding tube Q12H 12/18/22 04/21/23 gram/dose oral powder bisacodyl 10 mg rectal suppository 10 mg RECTAL DAILY PRN Constipation 02/11/23 04/21/23 magnesium citrate (Citroma oral 296 ml feeding tube DAILY PRN 02/11/23 04/21/23 solution) Constipation magnesium hydroxide 400 mg/5 mL 30 ml feeding tube HS PRN 02/11/23 04/21/23 oral suspension (Milk of Magnesia) Constipation sennosides 8.6 mg tablet (senna) 8.6 mg feeding tube HS PRN 02/11/23 04/21/23 Constipation sodium phosphates 19 gram-7 197 ml RECTAL ONCE 02/11/23 04/21/23 gram/118 mL enema (Fleet Enema) thiamine HCl (vitamin B1) 100 mg 100 mg feeding tube DAILY 02/11/23 04/21/23 tablet acetaminophen 650 mg tablet 650 mg PO Q6H PRN Pain 03/21/23 04/21/23 clobazam 10 mg tablet 15 mg feeding tube Q12H 03/21/23 04/21/23 famotidine 20 mg tablet 20 mg feeding tube Q12H 03/21/23 04/21/23 levetiracetam 100 mg/mL oral 2,000 mg feeding tube Q12H 03/21/23 04/21/23 solution (Keppra) omeprazole 20 mg tablet,delayed 20 mg PO DAILY 03/21/23 04/21/23 release peg [id number] 1 1 drp EACH EYE 4-6XD PRN Dry Eyes 03/21/23 04/21/23 %-0.2 %-0.2 % eye drops (Artificial Tears ([id number])) valproic acid (as sodium salt) 250 500 mg PO QID 03/21/23 04/21/23 mg/5 mL oral solution hydroxyzine HCl 25 mg tablet 25 mg feeding tube Q6H PRN Anxiety 04/20/23 04/21/23 lidocaine HCl 4 % topical cream 1 applic topical QID PRN Pain 04/21/23 04/21/23 (Aspercreme (lidocaine HCl)) nirmatrelvir 150 mg-ritonavir 100 3 ea PO BID 04/21/23 04/21/23 mg tablets in a dose pack zinc oxide-cod liver oil 40 % 1 applic topical QAM AND QHS 04/21/23 04/21/23 topical paste (Desitin) Allergies Allergy/AdvReac Type Severity Reaction Status Date / Time clonazepam Allergy Unknown Unknown Verified 04/21/23 01:33 Review of Systems Review of Systems: ROS unobtainable: Yes unobtainable due to endotracheal tube PMFSH Past Medical History Medical History Aphasia COPD (chronic obstructive pulmonary disease) Dysphagia Esophageal diverticulum Expressive aphasia Gastroparesis Gastrostomy tube dependent History of BPH History of multiple strokes Hyponatremia Iron deficiency anemia Malfunction of gastrostomy tube Seizure disorder Vascular dementia with psychotic disturbance Surgical History Surgical History Gastrostomy tube in place History of left above knee amputation Trac
[2023-05-19] MEDS: SODIUM CHLORIDE 0.9% IV 500 ML 999 ML IV CONT (02:43)
--- NOTE | 2023-05-19 02:47 | PC.NURSE ---
Patient's Jensen catheter that was in place was not draining. Notified Dr. Farrukh PAYNE, who verbally ordered a new Jensen catheter to be placed.
[2023-05-19 02:49] LABS: Basophils Percent Auto 0.3 % (0.2-1.2); Eosinophils Absolute Auto 0.4 K/mm3 (0-0.3); Eosinophils Percent Auto 3.9 % (0-4.4); Hematocrit 40.8 % (42.0-52.0); Hemoglobin 13.1 g/dL (14.0-18.0); Immature Granulocyte Absolute 0.02 K/mm3 (0.00-0.031); Immature Granulocyte Percent A 0.2 % (0-0.5); Immature Platelet Fraction Pct 17.7 % (0.9-11.2); Lymphocytes Percent Auto 19.7 % (18.3-44.2); Mean Corpuscular HGB Conc 32.1 g/dl (32-36); Mean Corpuscular Hemoglobin 31.6 pg (26-34); Mean Corpuscular Volume 98.3 fl (80-100); Mean Platelet Volume 13.9 fl (7.4-10.4); Monocytes Absolute Auto 0.9 K/mm3 (0.1-0.6); Monocytes Percent Auto 8.9 % (2.6-8.5); Neutrophils Absolute Auto 6.8 K/mm3 (1.3-6.7); Platelet Count Result 114 k/mm3 (150-375); Red Blood Count 4.15 M/mm3 (4.6-6.20); Red Cell Distribution Width 15.5 % (11.5-14.5); White Blood Count 10.1 K/mm3 (4.5-10.0)
[2023-05-19 02:59] LABS: Prothrombin Time 13.8 Seconds (11.1-14.7)
[2023-05-19 03:00] LABS: Partial Thromboplastin Time 34.7 SECONDS (22.3-36.8)
[2023-05-19 03:05] LABS: Appearance Urine Cloudy (Clear); Bacteria Urine None Seen /hpf; Bilirubin Urine Negative (Negative); Blood Urine 2+ (Negative); Color Urine Yellow (Yellow); Glucose Urine UA Negative (Negative); Ketones Urine Negative (Negative); Leukocyte Esterase Ur 1+ LEU/UL (Negative); Need Manual Microscopic Reviewed; Nitrate Urine Negative (Negative); Non Pathogenic Casts >20; Protein Urine 3+ mg/dL (Negative); RBC Urine 51-100 /hpf (0-2); Specific Grav Ur 1.019 (1.001-1.035); Squamous Epithelial Cell Urine None seen /hpf (Few); WBC Urine 51-100 /hpf; pH Urine 8.5 (5.0-9.0)
[2023-05-19 03:10] LABS: Add Urine Microscopic? YES
[2023-05-19 03:23] LABS: Alanine Aminotransferase 12 U/L (6-50); Albumin Level 3.3 g/dL (3.5-5.1); Alkaline Phosphatase 83 U/L (38-126); Aspartate Amino Transferase 29 U/L (17-59); Bilirubin,Total 0.4 mg/dL (0.2-1.3); Glucose 85 mg/dL (65-110)
[2023-05-19 03:23] LABS: Influenza A QL RT-PCR Negative (Negative); Influenza B QL RT-PCR Negative (Negative); SARS-CoV-2 RNA PCR Positive (Negative)
[2023-05-19 03:25] LABS: Magnesium 1.8 mg/dL (1.6-2.3)
[2023-05-19 03:37] LABS: Troponin I < 0.012 ng/mL (0.000-0.034)
[2023-05-19 04:15] LABS: Estimated CRCL calculation 126 ml/min; Estimated Glomerular Filt Rate > 60
[2023-05-19 04:16] LABS: Potassium 4.4 mmol/L (3.4-5.0); Sodium 138 mmol/L (137-145)
[2023-05-19 04:17] LABS: Anion Gap 6 mmol/L (8-16); Blood Urea Nitrogen 16 mg/dL (9-20); Carbon Dioxide 26 mmol/L (22-30); Chloride 106 mmol/L (98-107)
--- NOTE | 2023-05-19 04:40 | PC.NURSE ---
Per EDP Dr. Chadwick blood cultures not needed on the patient
[2023-05-19] MEDS: levoFLOXacin 500 MG/D5W 100 ML 500 MG/100 ML BAG 100 MG IVPB (05:01)
--- NOTE | 2023-05-19 05:33 | PC.NURSE ---
Attempted to call [facility] multiple times with no answer each time.
--- NOTE | 2023-05-20 | ECG_ITS ---
Measurements Intervals [place] Rate: 88 P: 62 HI: 150 QRS: -20 QRSD: 85 T: 67 QT: 318 QTc: 386 Interpretive Statements SINUS RHYTHM PREVIOUS ANTERIOR WALL OR ABNORMAL ECG COMPARED TO ECG 02/11/2023 07:54:00 LOSS OF ANTERIOR R-WAVE VOLTAGE IS NOTED Electronically Signed On 05-20-2023 14:57:01 P D DRIVER by Chai Lentz M.D.
== END 2023-05-19 06:31 ==
PROVIDERS: Emergency Provider Student in an Organized Health Care Education/Training Program
DX: J18.9 Pneumonia, unspecified organism (principal); T17.990A Other foreign object in respiratory tract, part unspecified in causing asphyxiation, initial encounter; J44.9 Chronic obstructive pulmonary disease, unspecified; K31.84 Gastroparesis; N40.0 Benign prostatic hyperplasia without lower urinary tract symptoms; D50.9 Iron deficiency anemia, unspecified; G40.909 Epilepsy, unspecified, not intractable, without status epilepticus; F01.52 Vascular dementia, unspecified severity, with psychotic disturbance; Z93.1 Gastrostomy status; Z93.0 Tracheostomy status; Z86.73 Personal history of transient ischemic attack (TIA), and cerebral infarction without residual deficits; Z86.16 Personal history of COVID-19; Z89.612 Acquired absence of left leg above knee; Z79.82 Long term (current) use of aspirin; R94.31 Abnormal electrocardiogram [ECG] [EKG]
CPT/HCPCS: 36415; 71046; 80053; 81001; 83735; 84484; 85025; 85055; 85610; 85730; 87086; 87088; 87636; 93005; 96365; 96367; 99284; J0696; J1956; J7040

== ENCOUNTER 2023-06-02 23:11 | Emergency (ER) | payer OTHER, SELFPAY ==
--- NOTE | ~2023-06-02 | XR_ITS ---
Portable chest x-ray Comparison: 05/05/2023 Clinical History: Cough Findings: Tracheostomy cannula present. Probable minimal fluid right minor fissure. Left lung clear. Cardiomediastinal silhouette is stable. Bones and soft tissues are unremarkable. Impression: Minimal fluid in the right minor fissure. Tracheostomy cannula. Reviewed, dictated and finalized at [facility]. ADVISOR Impression: Minimal fluid in the right minor fissure. Tracheostomy cannula.
[2023-06-02 23:12] VITALS: BP 143/89; PULSE 67; RESP 17; TEMP 36.2; O2SAT 100
[2023-06-02 23:20] VITALS: BP 143/89; PULSE 69; RESP 18; TEMP 36.2; O2SAT 100
[2023-06-03 00:56] VITALS: BP 143/83; PULSE 73; RESP 18; O2SAT 100
--- NOTE | 2023-06-03 02:16 | ED.GENADULT ---
HPI - General Adult General Chief complaint: Unspecified Stated complaint: TRACH CAME OUT AT FACILITY Time Seen by Provider: 06/03/23 00:00 Source: patient and old records reviewed Mode of arrival: EMS Limitations: clinical condition History of Present Illness HPI narrative: Patient is a 63-year-old male, with past medical history of CVA, seizure disorder, dementia, tracheostomy, G-tube, who presents to the ED via EMS with report of dislodged tracheostomy tube. Patient is a resident of [facility]. Per EMS report, they were called out to facility as patient has tracheostomy tube had become dislodged and they were unable to replace it. EMS reported that they were trying a tube that was too large. EMS was able to replace the tube, but then brought patient here for evaluation. patient denies any acute complaints. He does report having a cold over the last couple days. Related Data Home Medications Medication Instructions Recorded Confirmed atorvastatin 40 mg tablet 40 mg feeding tube QHS 11/14/22 04/21/23 folic acid 1 mg tablet 1 mg feeding tube DAILY 11/14/22 04/21/23 lacosamide 200 mg tablet 200 mg feeding tube Q12H 11/14/22 04/21/23 aspirin 81 mg chewable tablet 81 mg feeding tube DAILY 11/15/22 04/21/23 metoprolol tartrate 25 mg tablet 25 mg feeding tube Q12H 12/18/22 04/21/23 polyethylene glycol 3350 17 17 g feeding tube Q12H 12/18/22 04/21/23 gram/dose oral powder bisacodyl 10 mg rectal suppository 10 mg RECTAL DAILY PRN Constipation 02/11/23 04/21/23 magnesium citrate (Citroma oral 296 ml feeding tube DAILY PRN 02/11/23 04/21/23 solution) Constipation magnesium hydroxide 400 mg/5 mL 30 ml feeding tube HS PRN 02/11/23 04/21/23 oral suspension (Milk of Magnesia) Constipation sennosides 8.6 mg tablet (senna) 8.6 mg feeding tube HS PRN 02/11/23 04/21/23 Constipation sodium phosphates 19 gram-7 197 ml RECTAL ONCE 02/11/23 04/21/23 gram/118 mL enema (Fleet Enema) thiamine HCl (vitamin B1) 100 mg 100 mg feeding tube DAILY 02/11/23 04/21/23 tablet acetaminophen 650 mg tablet 650 mg PO Q6H PRN Pain 03/21/23 04/21/23 clobazam 10 mg tablet 15 mg feeding tube Q12H 03/21/23 04/21/23 famotidine 20 mg tablet 20 mg feeding tube Q12H 03/21/23 04/21/23 levetiracetam 100 mg/mL oral 2,000 mg feeding tube Q12H 03/21/23 04/21/23 solution (Keppra) omeprazole 20 mg tablet,delayed 20 mg PO DAILY 03/21/23 04/21/23 release peg [id number] 1 1 drp EACH EYE 4-6XD PRN Dry Eyes 03/21/23 04/21/23 %-0.2 %-0.2 % eye drops (Artificial Tears ([id number])) valproic acid (as sodium salt) 250 500 mg PO QID 03/21/23 04/21/23 mg/5 mL oral solution hydroxyzine HCl 25 mg tablet 25 mg feeding tube Q6H PRN Anxiety 04/20/23 04/21/23 lidocaine HCl 4 % topical cream 1 applic topical QID PRN Pain 04/21/23 04/21/23 (Aspercreme (lidocaine HCl)) nirmatrelvir 150 mg-ritonavir 100 3 ea PO BID 04/21/23 04/21/23 mg tablets in a dose pack zinc oxide-cod liver oil 40 % 1 applic topical QAM AND QHS 04/21/23 04/21/23 topical paste (Desitin) Allergies Allergy/AdvReac Type Severity Reaction Status Date / Time clonazepam Allergy Unknown Unknown Verified 06/02/23 23:22 Review of Systems Review of Systems: ROS unobtainable: Yes unobtainable due to medical condition PMFSH Past Medical History Medical History Aphasia COPD (chronic obstructive pulmonary disease) Dysphagia Esophageal diverticulum Expressive aphasia Gastroparesis Gastrostomy tube dependent History of BPH History of multiple strokes Hyponatremia Iron deficiency anemia Malfunction of gastrostomy tube Seizure disorder Vascular dementia with psychotic disturbance Surgical History Surgical History Gastrostomy tube in place History of left above knee amputation Tracheostomy in place Family Hi
[2023-06-03 02:35] VITALS: BP 122/77; PULSE 69; RESP 17; O2SAT 98
[2023-06-03 03:04] VITALS: BP 122/81; PULSE 71; RESP 18; O2SAT 100
[2023-06-03 03:16] LABS: Influenza A QL RT-PCR Negative (Negative); Influenza B QL RT-PCR Negative (Negative); RSV RNA, RT-PCR Negative (Negative); SARS-CoV-2 RNA PCR Positive (Negative)
--- NOTE | 2023-06-03 03:38 | PC.NURSE ---
Attempted to call report to [facility] of [place] but no one answered the phone.
[2023-06-03 03:50] VITALS: BP 127/83; PULSE 75; O2SAT 97
--- NOTE | 2023-06-03 03:50 | PC.NURSE ---
Attempted to call report to [facility] of [place] but no one answered the phone.
== END 2023-06-03 05:08 ==
PROVIDERS: Emergency Provider Physician Assistant
DX: Z43.0 Encounter for attention to tracheostomy (principal); F03.90 Unspecified dementia, unspecified severity, without behavioral disturbance, psychotic disturbance, mood disturbance, and anxiety; J44.9 Chronic obstructive pulmonary disease, unspecified; G40.909 Epilepsy, unspecified, not intractable, without status epilepticus; K31.84 Gastroparesis; N40.0 Benign prostatic hyperplasia without lower urinary tract symptoms; D50.9 Iron deficiency anemia, unspecified; Z93.1 Gastrostomy status; Z86.73 Personal history of transient ischemic attack (TIA), and cerebral infarction without residual deficits; Z89.612 Acquired absence of left leg above knee; Z79.82 Long term (current) use of aspirin
CPT/HCPCS: 71045; 87637; 99283

== ENCOUNTER 2023-06-30 18:57 | Emergency (ER) | payer OTHER, SELFPAY ==
[2023-06-30] VITALS (39 sets, daily range): BP systolic 108–137; BP diastolic 78–109; PULSE 83–104; RESP 16–21; TEMP 36.4; O2SAT 92–100
--- NOTE | ~2023-06-30 | XR_ITS ---
EXAMINATION: XR chest 1V portable DATE: 06/30/2023 21:06 INDICATION: Episode of altered mental status. TECHNIQUE: frontal view of the chest was obtained. COMPARISON: Chest radiograph dated 06/03/2023 FINDINGS: Tracheostomy tube remains in expected position at the thoracic inlet. Again seen is volume loss in th e right hemithorax. No significant change in opacities in the right lower lung zone which on prior CT correspond to discoid atelectasis along the minor fissure and dependent atelectasis in the right low er lobe. No pleural effusion or pneumothorax. Heart size is normal. Heterotopic ossification along th e right coracoclavicular ligament likely sequela of chronic trauma. IMPRESSION: 1. Persistent opacity right lower lung zone with volume loss in right hemithorax is consistent with a telectasis although differential includes pneumonia. Reviewed, dictated and finalized at location A. E TESTER IMPRESSION: 1. Persistent opacity right lower lung zone with volume loss in right hemithora x is consistent with atelectasis although differential includes pneumonia.
--- NOTE | 2023-06-30 19:03 | ECG_ITS ---
Measurements Intervals [place] Rate: 89 P: 53 NV: 155 QRS: -14 QRSD: 81 T: 73 QT: 348 QTc: 425 Interpretive Statements SINUS RHYTHM MALPOSITION LEAD V2 PREVIOUS ANTERIOR AND INFERIOR INFARCTION ABNORMAL ECG COMPARED TO ECG 05/19/2023 01:45:59 NO DIFFERENCE Electronically Signed On 07-01-2023 7:09:12 BUNDLE TIER by Chai Lentz M.D.
[2023-06-30 19:22] LABS: Glucose Point of Care 100 mg/dl (65-105)
[2023-06-30 19:54] LABS: Appearance Urine Turbid (Clear); Bacteria Urine 4+ /hpf; Bilirubin Urine Negative (Negative); Blood Urine 1+ (Negative); Budding Yeast Urine Present /hpf; Color Urine Yellow (Yellow); Glucose Urine UA Negative (Negative); Hyaline Casts Urine Present /lpf; Ketones Urine Negative (Negative); Leukocyte Esterase Ur 3+ LEU/UL (Negative); Need Manual Microscopic Reviewed; Nitrate Urine Positive (Negative); Protein Urine Trace mg/dL (Negative); RBC Urine >100 /hpf (0-2); Specific Grav Ur 1.019 (1.001-1.035); Squamous Epithelial Cell Urine Few /hpf (Few); WBC Urine >100 /hpf; pH Urine 7.5 (5.0-9.0)
[2023-06-30 19:57] LABS: Add Urine Microscopic? YES
--- NOTE | 2023-06-30 20:05 | ED.AMS ---
HPI - Altered Mental Status General Chief Complaint: Altered Mental Status Stated Complaint: altered mental status Time Seen by Provider: 06/30/23 19:02 History of Present Illness HPI narrative: Patient is a 63-year-old male with a history of dementia, seizure disorder, tracheostomy dependent presenting with altered mental status. Patient is coming from a nursing facility. He was reportedly less responsive than normal earlier so they sent him in for evaluation. On my evaluation, the patient is alert and responsive. He is aphasic but he denies pain. Related Data Home Medications Medication Instructions Recorded Confirmed atorvastatin 40 mg tablet 40 mg feeding tube QHS 11/14/22 04/21/23 folic acid 1 mg tablet 1 mg feeding tube DAILY 11/14/22 04/21/23 lacosamide 200 mg tablet 200 mg feeding tube Q12H 11/14/22 04/21/23 aspirin 81 mg chewable tablet 81 mg feeding tube DAILY 11/15/22 04/21/23 metoprolol tartrate 25 mg tablet 25 mg feeding tube Q12H 12/18/22 04/21/23 polyethylene glycol 3350 17 17 g feeding tube Q12H 12/18/22 04/21/23 gram/dose oral powder bisacodyl 10 mg rectal suppository 10 mg RECTAL DAILY PRN Constipation 02/11/23 04/21/23 magnesium citrate (Citroma oral 296 ml feeding tube DAILY PRN 02/11/23 04/21/23 solution) Constipation magnesium hydroxide 400 mg/5 mL 30 ml feeding tube HS PRN 02/11/23 04/21/23 oral suspension (Milk of Magnesia) Constipation sennosides 8.6 mg tablet (senna) 8.6 mg feeding tube HS PRN 02/11/23 04/21/23 Constipation sodium phosphates 19 gram-7 197 ml RECTAL ONCE 02/11/23 04/21/23 gram/118 mL enema (Fleet Enema) thiamine HCl (vitamin B1) 100 mg 100 mg feeding tube DAILY 02/11/23 04/21/23 tablet acetaminophen 650 mg tablet 650 mg PO Q6H PRN Pain 03/21/23 04/21/23 clobazam 10 mg tablet 15 mg feeding tube Q12H 03/21/23 04/21/23 famotidine 20 mg tablet 20 mg feeding tube Q12H 03/21/23 04/21/23 levetiracetam 100 mg/mL oral 2,000 mg feeding tube Q12H 03/21/23 04/21/23 solution (Keppra) omeprazole 20 mg tablet,delayed 20 mg PO DAILY 03/21/23 04/21/23 release peg [id number] 1 1 drp EACH EYE 4-6XD PRN Dry Eyes 03/21/23 04/21/23 %-0.2 %-0.2 % eye drops (Artificial Tears ([id number])) valproic acid (as sodium salt) 250 500 mg PO QID 03/21/23 04/21/23 mg/5 mL oral solution hydroxyzine HCl 25 mg tablet 25 mg feeding tube Q6H PRN Anxiety 04/20/23 04/21/23 lidocaine HCl 4 % topical cream 1 applic topical QID PRN Pain 04/21/23 04/21/23 (Aspercreme (lidocaine HCl)) nirmatrelvir 150 mg-ritonavir 100 3 ea PO BID 04/21/23 04/21/23 mg tablets in a dose pack zinc oxide-cod liver oil 40 % 1 applic topical QAM AND QHS 04/21/23 04/21/23 topical paste (Desitin) Allergies Allergy/AdvReac Type Severity Reaction Status Date / Time clonazepam Allergy Unknown Unknown Verified 06/02/23 23:22 Review of Systems Review of Systems: All systems reviewed & are unremarkable except as noted in HPI and below PMFSH Past Medical History Medical History Aphasia COPD (chronic obstructive pulmonary disease) Dysphagia Esophageal diverticulum Expressive aphasia Gastroparesis Gastrostomy tube dependent History of BPH History of multiple strokes Hyponatremia Iron deficiency anemia Malfunction of gastrostomy tube Seizure disorder Vascular dementia with psychotic disturbance Surgical History Surgical History Gastrostomy tube in place History of left above knee amputation Tracheostomy in place Family History Family History Other Unknown family medical history Social History Social History Social History: Code status: Full code Surrogate decision maker: Sister Smoking status: Unknown if ever smoked Alcohol in
[2023-06-30 20:38] LABS: Lactic Acid Reflex 1.4 mmol/L (0.7-2.0)
[2023-06-30 20:39] LABS: Alanine Aminotransferase 38 U/L (6-50); Albumin Level 3.7 g/dL (3.5-5.1); Alkaline Phosphatase 106 U/L (38-126); Anion Gap 8 mmol/L (8-16); Aspartate Amino Transferase 42 U/L (17-59); Bilirubin,Total 0.5 mg/dL (0.2-1.3); Blood Urea Nitrogen 19 mg/dL (9-20); Calcium 9.7 mg/dL (8.4-10.2); Carbon Dioxide 29 mmol/L (22-30); Chloride 100 mmol/L (98-107); Estimated CRCL calculation 123 ml/min; Estimated Glomerular Filt Rate > 60; Glucose 93 mg/dL (65-110); Potassium 4.7 mmol/L (3.4-5.0); Sodium 137 mmol/L (137-145)
--- NOTE | 2023-06-30 21:19 | PC.NURSE ---
called lab, will send a someone for straight stick to obtain green and red top.
[2023-06-30 21:25] LABS: INR 0.9; Prothrombin Time 12.7 Seconds (11.1-14.7)
[2023-06-30 21:26] LABS: Partial Thromboplastin Time 32.7 SECONDS (22.3-36.8)
[2023-06-30] MEDS: cefTRIAXone 2 GM/NS 100 ML 2 GM/100 ML BAG IVPB (21:48)
[2023-06-30 21:49] LABS: Influenza A QL RT-PCR Negative (Negative); Influenza B QL RT-PCR Negative (Negative); RSV RNA, RT-PCR Negative (Negative); SARS-CoV-2 RNA PCR Negative (Negative)
[2023-06-30] MEDS: SODIUM CHLORIDE 0.9% IV 1,000 ML 999 ML IV CONT (21:49)
[2023-06-30 21:51] LABS: Basophils Percent Auto 0.4 % (0.2-1.2); Eosinophils Absolute Auto 0.3 K/mm3 (0-0.3); Eosinophils Percent Auto 3.7 % (0-4.4); Hemoglobin 12.3 g/dL (14.0-18.0); Immature Granulocyte Absolute 0.03 K/mm3 (0.00-0.031); Immature Granulocyte Percent A 0.4 % (0-0.5); Lymphocytes Absolute Auto 2.76 K/mm3 (0.9-3.2); Lymphocytes Percent Auto 34.2 % (18.3-44.2); Mean Corpuscular HGB Conc 32.4 g/dl (32-36); Mean Corpuscular Hemoglobin 32.2 pg (26-34); Mean Corpuscular Volume 99.5 fl (80-100); Mean Platelet Volume 12.6 fl (7.4-10.4); Monocytes Absolute Auto 0.7 K/mm3 (0.1-0.6); Monocytes Percent Auto 8.2 % (2.6-8.5); Neutrophils Absolute Auto 4.3 K/mm3 (1.3-6.7); Neutrophils Percent Auto 53.1 % (45.5-73.1); Platelet Count Result 218 k/mm3 (150-375); Red Blood Count 3.82 M/mm3 (4.6-6.20); White Blood Count 8.1 K/mm3 (4.5-10.0)
[2023-06-30 22:03] LABS: Platelet Estimate Adequate (Adequate)
[2023-06-30 22:04] LABS: Anisocytosis 1+ (NORMAL); Hypochromasia 1+ (NORMAL); Large Platelets Present; Poikilocytosis 1+ (NORMAL); Schistocytes None Seen (NORMAL)
[2023-06-30 23:36] LABS: Glucose Point of Care 96 mg/dl (65-105)
[2023-07-01] VITALS (9 sets, daily range): BP systolic 100–124; BP diastolic 79–108; PULSE 78–107; RESP 16–19; O2SAT 100
[2023-07-01] MEDS: KETOROLAC 15 MG/ML VIAL (*BKC) IV PUSH (01:16)
== END 2023-07-01 01:28 ==
PROVIDERS: Emergency Provider Emergency Medicine
DX: N39.0 Urinary tract infection, site not specified (principal); Z20.822 Contact with and (suspected) exposure to COVID-19; F01.52 Vascular dementia, unspecified severity, with psychotic disturbance; G40.909 Epilepsy, unspecified, not intractable, without status epilepticus; J44.9 Chronic obstructive pulmonary disease, unspecified; K31.84 Gastroparesis; N40.0 Benign prostatic hyperplasia without lower urinary tract symptoms; D50.9 Iron deficiency anemia, unspecified; R13.10 Dysphagia, unspecified; R47.01 Aphasia; Z96.0 Presence of urogenital implants; Z93.0 Tracheostomy status; Z93.1 Gastrostomy status; Z86.73 Personal history of transient ischemic attack (TIA), and cerebral infarction without residual deficits; Z89.612 Acquired absence of left leg above knee; Z79.82 Long term (current) use of aspirin; R94.31 Abnormal electrocardiogram [ECG] [EKG]; R91.8 Other nonspecific abnormal finding of lung field
CPT/HCPCS: 36415; 71045; 80053; 81001; 82948; 83605; 85025; 85610; 85730; 87077; 87086; 87186; 87637; 93005; 96365; 96374; 99284; J0696; J1885; J7030

== ENCOUNTER 2023-07-08 08:16 | Inpatient (IN) | payer OTHER, SELFPAY ==
[2023-07-08] VITALS (31 sets, daily range): BP systolic 123–183; BP diastolic 76–98; PULSE 76–128; RESP 12–26; TEMP 36.1–37.2; O2SAT 92–100
--- NOTE | ~2023-07-08 | XR_ITS ---
EXAMINATION: XR chest 1V portable INDICATION: Respiratory distress TECHNIQUE: Portable AP chest at 0532 hours COMPARISON: 0429 hours FINDINGS: There is slight improvement in aeration of the right mid and upper lung zones. There appear s to be persistent collapse of the right lower lobe and possibly right middle lobe. The left lung is clear. The cardiac silhouette is obscured. Tracheostomy is in expected position. IMPRESSION: 1. Slight improvement in aeration of the right lung with probable persistent collapse of the right mi ddle and lower lobes. Reviewed, dictated and finalized at location F. RRAL AGENT IMPRESSION: 1. Slight improvement in aeration of the right lung with probable persistent co llapse of the right middle and lower lobes.
--- NOTE | ~2023-07-08 | US_ITS ---
EXAMINATION: US venous doppler E DATE: 07/18/2023 16:30 INDICATION: Left upper limb swelling TECHNIQUE: Grayscale images without and with compression and Doppler images of the left upper extremi ty veins were obtained. COMPARISON: None. FINDINGS: Occlusive appearing deep venous thrombosis in the left subclavian, axillary and basilic veins. The le ft internal jugular vein, brachial vein, cephalic vein, radial vein, and ulnar vein are patent. IMPRESSION: 1. Occlusive appearing deep venous thrombosis in the left subclavian, axillary and basilic veins. Reviewed, dictated and finalized at location A. STERED MAIL CLERK
--- NOTE | ~2023-07-08 | XR_ITS ---
Portable chest x-ray Comparison: 07/11/2023 at 5:27 AM Clinical History: Tracheostomy placement Findings: Tracheostomy cannula appears to be in satisfactory position. Left-sided PICC line in satis factory position. There is probable minimal bibasilar pulmonary edema. Cardiomediastinal silhouette is stable. Bones and soft tissues are unremarkable. Impression: Support tubes, as above. Minimal bibasilar pulmonary edema. Reviewed, dictated and finalized at location . IC PROCESS ENGINEER Impression: Support tubes, as above. Minimal bibasilar pulmonary edema.
--- NOTE | ~2023-07-08 | XR_ITS ---
Portable chest x-ray Comparison: 07/12/2023 Clinical History: Respiratory failure Findings: Tracheostomy cannula and left-sided PICC line are in place. Questionable minimal bibasilar pulmonary edema. Cardiomediastinal silhouette is stable. Bones and soft tissues are unremarkable. Impression: Questionable minimal bibasilar pulmonary edema. Support tubes, as above. Reviewed, dictated and finalized at location . NTORY CONTROL ASSOCIATE Impression: Questionable minimal bibasilar pulmonary edema. Support tubes, as above.
--- NOTE | ~2023-07-08 | XR_ITS ---
EXAMINATION: XR chest 1V portable INDICATION: Respiratory distress and tachycardia TECHNIQUE: Portable AP chest at 0429 hours COMPARISON: 07/08/2023 FINDINGS: A tracheostomy is in expected position. There is interval development of complete opacifica tion of the right hemithorax with associated volume loss. There appears to be abrupt cut off of the r ight mainstem bronchus. No pneumothorax is identified. The left lung is clear. The cardiac silhouette is obscured. IMPRESSION: 1. Interval development of complete opacification of the right hemithorax with associated volume loss and probable abrupt cut off of the right mainstem bronchus. Findings could reflect mucous plugging. Reviewed, dictated and finalized at location F. ATION AND DEVELOPMENT MANAGER IMPRESSION: 1. Interval development of complete opacification of the right hemithorax with associated volume loss and probable abrupt cut off of the right mainstem bronch us. Findings could reflect mucous plugging.
--- NOTE | ~2023-07-08 | XR_ITS ---
EXAMINATION: XR chest 1V portable INDICATION: Tracheostomy replacement TECHNIQUE: Portable AP chest at 1040 hours COMPARISON: 06/30/2023 FINDINGS: The tracheostomy is in expected position. There is improved aeration of the right lower lob e. There are patchy diffuse interstitial and airspace opacities. There appears to be a small left ple ural effusion. There is no pneumothorax. The cardiomediastinal silhouette is stable. IMPRESSION: 1. Tracheostomy in expected position. 2. Mild diffuse lung disease, consistent with pulmonary edema and/or pneumonia. 3. Possible small left pleural effusion. Reviewed, dictated and finalized at location B. ENT ASSISTANT
--- NOTE | ~2023-07-08 | XR_ITS ---
Supine and upright views of the abdomen Clinical history: Abdominal pain Findings: Bowel gas pattern is nonspecific. Percutaneous gastrojejunostomy tube present. No evidence for obstruction or free air. No abnormal mass lesion or calcification is seen. Osseous structures are intact. Impression: No acute abnormality evident. Presumed previous gastrojejunostomy tube. Reviewed, dictated and finalized at [facility]. INE PACKAGER Impression: No acute abnormality evident. Presumed previous gastrojejunostomy tube.
--- NOTE | ~2023-07-08 | XR_ITS ---
Portable chest x-ray Comparison: 07/13/2023 Clinical History: Respiratory failure Findings: Tracheostomy cannula and left-sided PICC line are in place. Questionable minimal bibasilar pulmonary edema. Cardiomediastinal silhouette is stable. Bones and soft tissues are unremarkable. Impression: Questionable minimal bibasilar pulmonary edema. Support tubes, as above. Reviewed, dictated and finalized at location . KAY STITCHER Impression: Questionable minimal bibasilar pulmonary edema. Support tubes, as above.
--- NOTE | ~2023-07-08 | XR_ITS ---
EXAMINATION: XR chest 1V portable DATE: 07/10/2023 05:46 INDICATION: Respiratory failure. Mucous plugging. TECHNIQUE: A single frontal view of the chest was obtained. COMPARISON: Chest single view 07/09/2023, chest CT 04/20/2023 FINDINGS: There is mild atelectasis at left lung base. No pleural effusion or pneumothorax. The heart size is normal. There is a tracheostomy tube in expected position. A left upper extremity peripheral ly inserted central venous catheter (PICC) is seen with tip in the superior vena cava. IMPRESSION: 1. Mild atelectasis at left lung base. Reviewed, dictated and finalized at location A. TECHNICIAN
--- NOTE | ~2023-07-08 | XR_ITS ---
EXAMINATION: XR abdomen gastric tube insert DATE: 07/28/2023 10:45 INDICATION: Percutaneous gastrostomy tube placement TECHNIQUE: A supine view of the abdomen and lower chest was obtained for evaluation of feeding tube placement. COMPARISON: Studies dated 07/26/2023 and 07/28/2023 at 9:12 AM FINDINGS: Again seen is a percutaneous gastrostomy tube extending to the left upper quadrant which is now more clearly visualized due to the injected contrast. The injected contrast extends throughout the stomach with small amount progressing through the duodenum to the proximal jejunum. No evident extraluminal contrast extravasation. Again seen is less dense contrast scattered throughout the colon resulting fr om the earlier contrast administration from 2 days prior. No dilated loops of gas-filled bowel to sug gest obstruction. Tracheostomy tube in expected position at the thoracic inlet. Tip of a likely left upper extremity peripherally inserted central venous catheter projects of the mid superior vena cava. IMPRESSION: 1. Percutaneous gastrostomy tube tip in the stomach as evident by extension of injected contrast into the stomach and proximal small bowel with no extraluminal extravasation. Reviewed, dictated and finalized at location L. COLOGY TEACHER IMPRESSION: 1. Percutaneous gastrostomy tube tip in the stomach as evident by extension of injected contrast into the stomach and proximal small bowel with no extralumina l extravasation.
--- NOTE | ~2023-07-08 | XR_ITS ---
Portable chest x-ray Comparison: 07/11/2023 Clinical History: Respiratory failure Findings: Tracheostomy cannula and left-sided PICC line are in place. There is mild bibasilar pulmon shlomo edema pattern. Cardiomediastinal silhouette is stable. Bones and soft tissues are unremarkable. Impression: Mild bibasilar pulmonary edema pattern. Support tubes, as above. Reviewed, dictated and finalized at [facility]. EY ENGINEER Impression: Mild bibasilar pulmonary edema pattern. Support tubes, as above.
--- NOTE | ~2023-07-08 | XR_ITS ---
EXAMINATION: XR abdomen gastric tube insert DATE: 07/26/2023 15:58 INDICATION: Gastrojejunostomy tube repositioning. TECHNIQUE: A supine view of the abdomen was obtained. COMPARISON: Abdomen radiograph 07/24/2023 FINDINGS: There are no dilated loops of bowel. There is a percutaneous tube in the body of the stomac h with tip at the duodenal jejunal junction. There is contrast in the tube and in the stomach and duo denum and jejunum. No extraluminal contrast. IMPRESSION: 1. Tube tip at the duodenal jejunal junction. Reviewed, dictated and finalized at location A. HEARTH LABORER
--- NOTE | ~2023-07-08 | XR_ITS ---
EXAMINATION: XR abdomen gastric tube rechec DATE: 07/28/2023 09:21 INDICATION: Gastric tube recheck TECHNIQUE: 2 supine views of the abdomen were obtained to assess for gastric tube placement evaluatio n of feeding tube placement. COMPARISON: 07/26/2023 FINDINGS: Wo contrast material from the prior study has progressed now seen scattered throughout portions of th e colon. There is a catheter tube extending cephalad towards the left upper quadrant suggesting a per cutaneous gastrostomy tube. The distal tip is unable to be definitively identified. No dilated loops of gas-filled bowel in the abdomen or pelvis. Persistent right middle lobe collapse. Additional strea ky atelectasis in the left lower lung zone. Central venous catheter extends through the left brachioc ephalic vein with distal tip at the midsuperior vena cava. Heart size is normal. IMPRESSION: 1. Catheter tubing likely a percutaneous gastrostomy tube extends towards the left upper quadrant of the distal tip unable to be definitively identified. If confirmation of intraluminal positioning is r equired would recommend repeat radiograph following injection of a small amount of water-soluble oral contrast material. 2. Streaky atelectasis at the left lung base and persistent right middle lobe collapse. Underlying pn eumonia not excludable. Reviewed, dictated and finalized at location L. ASST IMPRESSION: 1. Catheter tubing likely a percutaneous gastrostomy tube extends towards the l eft upper quadrant of the distal tip unable to be definitively identified. If c onfirmation of intraluminal positioning is required would recommend repeat radi ograph following injection of a small amount of water-soluble oral contrast mat erial. 2. Streaky atelectasis at the left lung base and persistent right middle lobe c ollapse. Underlying pneumonia not excludable.
--- NOTE | ~2023-07-08 | XR_ITS ---
Portable chest x-ray Comparison: 07/09/2023 at 5:32 AM Clinical History: PICC line placed Findings: Left-sided PICC line now place, tip in satisfactory location the SVC region. Tracheostomy cannula present. Visualized lungs are clear. There is been reexpansion of the right lung base since p rior exam. Cardiomediastinal silhouette is stable. Bones and soft tissues are unremarkable. Impression: Left-sided PICC line in satisfactory position, as above. Clear lungs. Reviewed, dictated and finalized at location M. D ENTRANCE REGISTRAR Impression: Left-sided PICC line in satisfactory position, as above. Clear lungs.
--- NOTE | ~2023-07-08 | XR_ITS ---
Portable chest x-ray Comparison: 07/10/2023 Clinical History: Respiratory failure Findings: Tracheostomy cannula and left-sided PICC line are in place. Questionable minimal bibasilar pulmonary edema/atelectasis. Cardiomediastinal silhouette is stable. Bones and soft tissues are unr emarkable. Impression: Questionable minimal bibasilar pulmonary edema/atelectasis. Support tubes, as above. Reviewed, dictated and finalized at location . TE SENSING SPECIALIST Impression: Questionable minimal bibasilar pulmonary edema/atelectasis. Support tubes, as above.
--- NOTE | ~2023-07-08 | XR_ITS ---
XR abdomen/kub 1V 07/24/2023 10:33 Indication: Tube feed leakage. Abdominal pain. Procedure: KUB Comparison: 07/11/2023 Findings: Stable appearance to gastrojejunostomy tube. No significant change to position. Bowel gas p attern is nonobstructive. There is atherosclerosis. Moderate lumbar spondylosis. Lung bases unremarka ble. Impression: 1: Nonobstructive bowel gas pattern. Reviewed, dictated and finalized at location A. EDICAL REPAIR TECHNICIAN Impression: 1: Nonobstructive bowel gas pattern.
[2023-07-08 09:13] LABS: Basophils Percent Auto 0.2 % (0.2-1.2); Eosinophils Absolute Auto 0.5 K/mm3 (0-0.3); Eosinophils Percent Auto 5.4 % (0-4.4); Hematocrit 41.5 % (42.0-52.0); Hemoglobin 13.6 g/dL (14.0-18.0); Immature Granulocyte Absolute 0.02 K/mm3 (0.00-0.031); Immature Granulocyte Percent A 0.2 % (0-0.5); Lymphocytes Absolute Auto 2.95 K/mm3 (0.9-3.2); Lymphocytes Percent Auto 33.2 % (18.3-44.2); Mean Corpuscular HGB Conc 32.8 g/dl (32-36); Mean Corpuscular Hemoglobin 32.6 pg (26-34); Mean Corpuscular Volume 99.5 fl (80-100); Mean Platelet Volume 12.8 fl (7.4-10.4); Monocytes Absolute Auto 0.9 K/mm3 (0.1-0.6); Monocytes Percent Auto 10.2 % (2.6-8.5); Neutrophils Absolute Auto 4.5 K/mm3 (1.3-6.7); Neutrophils Percent Auto 50.8 % (45.5-73.1); Platelet Count Result 185 k/mm3 (150-375); Red Blood Count 4.17 M/mm3 (4.6-6.20); Red Cell Distribution Width 15.6 % (11.5-14.5); White Blood Count 8.9 K/mm3 (4.5-10.0)
[2023-07-08 09:24] LABS: INR 0.9
[2023-07-08 09:25] LABS: Partial Thromboplastin Time 33.2 SECONDS (22.3-36.8)
[2023-07-08 09:29] LABS: Alanine Aminotransferase 16 U/L (6-50); Albumin Level 3.7 g/dL (3.5-5.1); Alkaline Phosphatase 120 U/L (38-126); Anion Gap 7 mmol/L (8-16); Aspartate Amino Transferase 27 U/L (17-59); Bilirubin,Total 0.3 mg/dL (0.2-1.3); Blood Urea Nitrogen 17 mg/dL (9-20); Calcium 9.7 mg/dL (8.4-10.2); Carbon Dioxide 28 mmol/L (22-30); Chloride 100 mmol/L (98-107); Estimated CRCL calculation 136 ml/min; Estimated Glomerular Filt Rate > 60; Glucose 94 mg/dL (65-110); Potassium 4.5 mmol/L (3.4-5.0); Sodium 135 mmol/L (137-145)
--- NOTE | 2023-07-08 09:46 | ED.GENADULT ---
HPI - General Adult General Chief complaint: Unspecified <Naa Castaneda PA-C - Last Filed: 07/08/23 18:22> Stated complaint: displaced trach <AUGUSTO Celestin Last Filed: 07/08/23 18:22> Time Seen by Provider: 07/08/23 09:12 <AUGUSTO Celestin Last Filed: 07/08/23 18:22> Source: EMS <AUGUSTO Celestin Last Filed: 07/08/23 18:22> Mode of arrival: EMS <AUGUSTO Celestin Last Filed: 07/08/23 18:22> Limitations: dementia <AUGUSTO Celestin Last Filed: 07/08/23 18:22> History of Present Illness HPI narrative: This is a 63 year old male that presents to the ER for tracheostomy tube dysfunction. Reportedly came out last night. They were unable to replace it at the facility, so sent him in for replacement. Patient currently on high flow therapy. Does have some thick secretions. <Naa Castaneda PA-C - Last Filed: 07/08/23 18:22> Related Data Home medications: Home Medications Medication Instructions Recorded Confirmed atorvastatin 40 mg tablet 40 mg feeding tube QHS 11/14/22 04/21/23 folic acid 1 mg tablet 1 mg feeding tube DAILY 11/14/22 04/21/23 lacosamide 200 mg tablet 200 mg feeding tube Q12H 11/14/22 04/21/23 aspirin 81 mg chewable tablet 81 mg feeding tube DAILY 11/15/22 04/21/23 metoprolol tartrate 25 mg tablet 25 mg feeding tube Q12H 12/18/22 04/21/23 polyethylene glycol 3350 17 17 g feeding tube Q12H 12/18/22 04/21/23 gram/dose oral powder bisacodyl 10 mg rectal suppository 10 mg RECTAL DAILY PRN Constipation 02/11/23 04/21/23 magnesium citrate (Citroma oral 296 ml feeding tube DAILY PRN 02/11/23 04/21/23 solution) Constipation magnesium hydroxide 400 mg/5 mL 30 ml feeding tube HS PRN 02/11/23 04/21/23 oral suspension (Milk of Magnesia) Constipation sennosides 8.6 mg tablet (senna) 8.6 mg feeding tube HS PRN 02/11/23 04/21/23 Constipation sodium phosphates 19 gram-7 197 ml RECTAL ONCE 02/11/23 04/21/23 gram/118 mL enema (Fleet Enema) thiamine HCl (vitamin B1) 100 mg 100 mg feeding tube DAILY 02/11/23 04/21/23 tablet acetaminophen 650 mg tablet 650 mg PO Q6H PRN Pain 03/21/23 04/21/23 clobazam 10 mg tablet 15 mg feeding tube Q12H 03/21/23 04/21/23 famotidine 20 mg tablet 20 mg feeding tube Q12H 03/21/23 04/21/23 levetiracetam 100 mg/mL oral 2,000 mg feeding tube Q12H 03/21/23 04/21/23 solution (Keppra) omeprazole 20 mg tablet,delayed 20 mg PO DAILY 03/21/23 04/21/23 release peg [id number] 1 1 drp EACH EYE 4-6XD PRN Dry Eyes 03/21/23 04/21/23 %-0.2 %-0.2 % eye drops (Artificial Tears ([id number])) valproic acid (as sodium salt) 250 500 mg PO QID 03/21/23 04/21/23 mg/5 mL oral solution hydroxyzine HCl 25 mg tablet 25 mg feeding tube Q6H PRN Anxiety 04/20/23 04/21/23 lidocaine HCl 4 % topical cream 1 applic topical QID PRN Pain 04/21/23 04/21/23 (Aspercreme (lidocaine HCl)) nirmatrelvir 150 mg-ritonavir 100 3 ea PO BID 04/21/23 04/21/23 mg tablets in a dose pack zinc oxide-cod liver oil 40 % 1 applic topical QAM AND QHS 04/21/23 04/21/23 topical paste (Desitin) <Naa Castaneda PA-C - Last Filed: 07/08/23 18:22> Allergies/adverse reactions: Allergies Allergy/AdvReac Type Severity Reaction Status Date / Time clonazepam Allergy Unknown Unknown Verified 07/08/23 08:24 <Naa Castaneda PA-C - Last Filed: 07/08/23 18:22> Review of Systems Review of Systems: ROS unobtainable: Yes unobtainable due to medical condition <Naa Castaneda PA-C - Last Filed: 07/08/23 18:22> [facility] Past Medical History Medical History: Medical History (Updated 07/08/23 @ 17:28 by Naa Castaneda PA-C) Benign prostatic hyperplasia Cerebrovascular accident Residual expressive aphasia and dysphagia. Chronic obstructive pulmonary disease Esophageal diverticulum Gastroparesis Iron deficiency anemia Seizure disorder Vascular dementia with psychotic disturbance <Naa Castaneda,
[2023-07-08] MEDS: IBUPROFEN IV 400 MG in SODIUM CHLORIDE 0.9% IV 100 ML 208 MG IVPB (11:09)
[2023-07-08 13:39] LABS: Influenza A QL RT-PCR Negative (Negative); Influenza B QL RT-PCR Negative (Negative); RSV RNA, RT-PCR Negative (Negative); SARS-CoV-2 RNA PCR Negative (Negative)
[2023-07-08] MEDS: MEROPENEM 1 GM/NS 100 ML 1 GM/100 ML BAG IVPB (15:08)
[2023-07-08 15:32] LABS: CRP < 0.5 mg/dL (<1.0)
[2023-07-08 15:39] LABS: NT Pro B Type Natriuretic Pept 163 pg/mL (19.9-100)
--- NOTE | 2023-07-08 17:17 | PM.IMHP ---
H&P: HPI History of Present Illness Date/Time: 07/08/23 19:45 Chief Complaint: Dislodged trach. Narrative: This is a pleasant 63-year-old male with history of stroke, chronic respiratory failure status post tracheostomy and PEG tube, seizure disorder, and dementia presented to the emergency department via EMS for evaluation of a dislodged trach. He cannot provide much in the way of history but is able to nod and shake his head and gesture appropriately to some questions. A majority of the following history is obtained via a review of his electronic medical records. He was sent in today as his trach became dislodged overnight and custodial staff were unsuccessful with replacement. ED physician was able to replace the trach without issue. Thereafter he had a lot of upper airway rhonchi and seemed to be having difficulties clearing out mucus. Chest x-ray showed the tracheostomy was in expected position and also noted mild and diffuse lung disease consistent with pulmonary edema and/or pneumonia. He is being admitted in this setting for empiric antibiotics and for pulmonary toilet to help clear secretions. He has been afebrile since arrival and blood pressures have been stable. Labs were significant for a WBC count of 8.9, CRP less than 0.5, procalcitonin 0.0, proBNP 163. At the time my evaluation he has complaints and denies fevers, sweats, chest pain, feelings of shortness of breath, abdominal pain, and nausea. Review of Systems Review of Systems: Twelve systems were reviewed but difficult to obtain as he has troubles communicating due to expressive aphasia from prior stroke. [facility] Past Medical History Medical History Benign prostatic hyperplasia Cerebrovascular accident Residual expressive aphasia and dysphagia. Chronic obstructive pulmonary disease Esophageal diverticulum Gastroparesis Iron deficiency anemia Seizure disorder Vascular dementia with psychotic disturbance Surgical History Surgical History History of left above knee amputation History of tracheostomy Family History Family History Other Unknown family medical history Social History Social History Social History: Surrogate medical decision maker: Adriane Hilliard, sibling. Code status: Full code. Smoking status: Unknown if ever smoked Alcohol intake: former Substance use: unknown Substance use type: does not use Lack of Transportation: No Lack of Food: Never True Current Housing: I Have Housing Concerned About Future Housing: No Difficulty Paying Gas/Electric Bills: No Difficulty Paying for Meds: No Currently Unemployed: No Education: Don't Know Difficulty w/ Childcare or Family Care: No Spiritual care concerns: No Meds Home Medications and Allergies Home Medications Medication Instructions Recorded Confirmed Type atorvastatin 40 mg tablet 40 mg feeding tube QHS 11/14/22 07/08/23 History folic acid 1 mg tablet 1 mg feeding tube DAILY 11/14/22 07/08/23 History lacosamide 200 mg tablet 200 mg feeding tube Q12H 11/14/22 07/08/23 History aspirin 81 mg chewable tablet 81 mg feeding tube DAILY 11/15/22 07/08/23 History metoprolol tartrate 25 mg tablet 25 mg feeding tube Q12H 12/18/22 07/08/23 History polyethylene glycol 3350 17 17 g feeding tube Q12H 12/18/22 07/08/23 History gram/dose oral powder bisacodyl 10 mg rectal suppository 10 mg RECTAL DAILY PRN Constipation 02/11/23 07/08/23 History magnesium hydroxide 400 mg/5 mL 30 ml feeding tube HS PRN 02/11/23 07/08/23 History oral suspension (Milk of Magnesia) Constipation sennosides 8.6 mg tablet (senna) 8.6 mg feeding tube HS PRN 02/11/23 07/08/23 History Constipation sodium phosphates 19 gram-7 197 ml RECTAL ONCE 02/11/23 07/08/23 Hist
[2023-07-08] MEDS: VANCOMYCIN 1,250 MG/NS 250 ML 1,250 MG/250 ML BAG 166.67 MG IVPB ×2 (20:00→22:02)
[2023-07-08] MEDS: IPRATROPIUM 0.5 MG/ALBUTEROL SULFATE 2.5 MG AMPUL.NEB 3 ML INHALATION (20:20)
--- NOTE | 2023-07-08 20:39 | ADMGEN ---
This patient, iB Tabor, was admitted to 2 Medical Room 260-. Patient/family oriented to hospital policies and general routines including ID bracelet, bed and alarms, visiting hours, pain management, procedures, bathroom and other care routines, personal items, smoking policy, room service/diet, and visiting hours. Information on how to activate the Rapid Response Team has been discussed. Patient/Family are encouraged to report perceived risks to care and to ask questions if they do not understand what they are told or what they should do.
[2023-07-08] MEDS: METOPROLOL TARTRATE 25 MG TABLET FEED TUBE (22:03)
[2023-07-08] MEDS: FAMOTIDINE 20 MG TABLET FEED TUBE (22:04)
[2023-07-08] MEDS: ATORVASTATIN 40 MG TABLET FEED TUBE (22:04)
[2023-07-08 22:48] LABS: Appearance Urine Turbid (Clear); Bacteria Urine 1+ /hpf; Bilirubin Urine Negative (Negative); Blood Urine Negative (Negative); Color Urine Yellow (Yellow); Glucose Urine UA Negative (Negative); Ketones Urine Negative (Negative); Leukocyte Esterase Ur 3+ LEU/UL (Negative); Nitrate Urine Positive (Negative); Non Pathogenic Casts 0-2; Protein Urine Trace mg/dL (Negative); Specific Grav Ur 1.024 (1.001-1.035); Squamous Epithelial Cell Urine None seen /hpf (Few); WBC Urine >100 /hpf; pH Urine 7.5 (5.0-9.0)
[2023-07-08] MEDS: LACOSAMIDE (*CRX) 200 MG TABLET FEED TUBE (22:48)
[2023-07-08] MEDS: CLOBAZAM 5 MG FEED TUBE (22:49)
[2023-07-08] MEDS: levETIRAcetam ORAL SOL 500 MG/5 ML UDC 2000 MG FEED TUBE (22:49)
[2023-07-08] MEDS: cloBAZam (*CRX) 10 MG TABLET FEED TUBE (22:49)
[2023-07-08] MEDS: guaiFENesin 200 MG/10 ML UDC 600 MG FEED TUBE (23:05)
[2023-07-08 23:22] LABS: Add Urine Microscopic? YES
[2023-07-09] VITALS (31 sets, daily range): BP systolic 114–152; BP diastolic 72–95; PULSE 84–146; RESP 18–40; TEMP 35.8–37.3; O2SAT 60–100
[2023-07-09 00:02] LABS: MRSA (PCR) DETECTED (NOT DETECTE)
[2023-07-09] MEDS: MEROPENEM 1 GM/NS 100 ML 1 GM/100 ML BAG IVPB ×4 (00:57→22:35)
--- NOTE | 2023-07-09 02:43 | PCRCNOTE ---
0000 updraft treatment not given due to pt being switched to q4 tx's and RT was not notified. Pt originally ordered on q6 treatments.
[2023-07-09] MEDS: IPRATROPIUM 0.5 MG/ALBUTEROL SULFATE 2.5 MG AMPUL.NEB 3 ML INHALATION ×4 (02:47→20:03)
[2023-07-09] MEDS: dilTIAZem HCl INJ 25 MG/5 ML VIAL 10 MG IV PUSH (04:21)
[2023-07-09] MEDS: MORPHINE SULFATE (*CRX) 4 MG/ML INJ IV PUSH (04:24)
--- NOTE | 2023-07-09 04:30 | ECG_ITS ---
Measurements Intervals [place] Rate: 124 P: 50 MN: 167 QRS: -2 QRSD: 100 T: 54 QT: 411 QTc: 591 Interpretive Statements SINUS TACHYCARDIA MINIMAL ST DEPRESSION [0.025+ mV ST DEPRESSION] ABNORMAL ECG COMPARED TO ECG 06/30/2023 19:08:11 [address] NOW PRESENT ST (T WAVE) DEVIATION NOW PRESENT Electronically Signed On 07-09-2023 8:05:17 [employer] TECH by Shane Ramos M.D.
--- NOTE | 2023-07-09 04:45 | PC.NURSE ---
This patient, Bi Tabor, was received from [facility] on 07/09/23 at 0445. Report received from ALFRED Atkinson. Patient/family oriented to unit policies and routines
[2023-07-09 05:00] LABS: Glucose Point of Care 130 mg/dl (65-105)
--- NOTE | 2023-07-09 05:09 | PC.NURSE ---
Notified pt's sister and POA, Adriane Soto, that pt was transferred to ICU.
--- NOTE | 2023-07-09 05:48 | P.PNCROSS_ITS ---
Event Note Event Note Event Note: Per response was called to patient's room after patient became severely distres sed with respiration in the 40's. Subjective: Severe respiratory distress Objective: upon arrival to the room patient is noted to be in respiratory distress on Airvo maxed out on oxygen. Vitals respiratory rate 40 saturation 91% blood pressure 125/85 general: laying in bed on Airvo severe respiratory distress HEENT: Atraumatic normocephalic PERRLA EOM trach in place respiratory: Absent breath sounds on right lung field left lung field crackles cardiovascular: Tachycardia abdomen: Firm peg tube in place skin: Tracheostomy muscle skeletal left above the knee amputation central nervous system: patient is awake and alert Assessment and plan: 1. Acute on chronic respiratory: Transferred to ICU patient placed on ventilator. Chest x-ray reviewed right white out lung pulmonology consult discussed with Dr. Cedeno recommends Pulmozyme aggressive pulmonary toilette. consult to Critical Care Dr. Gilliland. 1.1 lung infiltrate: Patient is on vancomycin and Merrem await cultures. 2. Chronic trach: Trach care 3. stroke: Unchanged 4. Left above the knee amputation: At risk for fall
[2023-07-09 06:07] LABS: Alveolar/Arterial O2 Gradient 288.1 mmHg; Base Excess ABG -5.2 mEq/l (+/-2.0); Carboxyhemoglobin 0.6 % THb (0-2.0); Fractional Inspired Oxygen 80 %; HCO3 ABG 19.4 mEq/l (22.0-26.0); Methemoglobin ABG 0.4 %THb (0-1.5); Oxygen Saturation ABG 99.5 % (95.0-100.0); Oxyhemoglobin 98.3 % THb (90.0-100.0); PCO2 ABG 35.3 mmHg (35.0-45.0); PO2 ABG 245.2 mmHg (80.0-100.0); PO2 FiO2 Ratio Arterial Blood 3.07 %; Reduced Hemoglobin 0.7 %THb (0-5.0); Total Hemoglobin 14.8 g/dL (12.0-18.0); pH ABG 7.358 (7.350-7.450)
[2023-07-09 06:08] LABS: Arterial Blood Gas Ventilator rate 18 /MIN; Device VENTILATOR; Modified Allen's Test Pass; Site Drawn LEFT RADIAL
[2023-07-09 06:09] LABS: Arterial Blood Gas PEEP 6 cmH2O; Arterial Blood Gas Tidal Volume 400 ml; Arterial Blood Gas Vent Mode CMV
[2023-07-09] MEDS: guaiFENesin 200 MG/10 ML UDC 600 MG FEED TUBE ×3 (06:22→16:57)
[2023-07-09] MEDS: LANSOPRAZOLE ODT 30 MG TAB.RAP.DR FEED TUBE (06:24)
[2023-07-09 07:03] LABS: Anion Gap 10 mmol/L (8-16); Blood Urea Nitrogen 16 mg/dL (9-20); Calcium 9.6 mg/dL (8.4-10.2); Carbon Dioxide 15 mmol/L (22-30); Chloride 107 mmol/L (98-107); Estimated CRCL calculation 125 ml/min; Estimated Glomerular Filt Rate > 60; Glucose 97 mg/dL (65-110); Potassium 4.7 mmol/L (3.4-5.0); Sodium 132 mmol/L (137-145)
[2023-07-09] MEDS: DORNASE ALFA INH SOLN 1 MG/ML 2.5 ML AMP 2.5 MG INHALATION ×2 (07:19→20:02)
[2023-07-09] MEDS: ACETYLCYSTEINE 20% INHAL SOLN 800 MG/4 ML VIAL 200 MG INHALATION ×3 (08:24→20:02)
--- NOTE | 2023-07-09 09:05 | WPDCNINT ---
Assessment and Plan Assessment and plan (1) Acute and chronic respiratory failure: Qualifiers: Respiratory failure complication: hypoxia Qualified Code(s): J96.21 - Acute and chronic respiratory failure with hypoxia Code(s): J96.20 - Acute and chronic respiratory failure, unspecified whether with hypoxia or hypercapnia Status: Acute Assessment and Plan: acute on chronic respiratory failure likely related to mucus plugging with lower right lung collapse - patient was hypoxic on the medical floor, was bagged, placed on mechanical ventilation in the ICU - chest x-ray and ABGs reviewed, ventilator adjusted, increase PEEP to 8 - continue bronchodilators - add Mucomyst inhalation - add Pulmozyme - will place patient with left lung down - chest PT q.6 hours with vest treatment and percussion - started patient on vancomycin and meropenem for pneumonia - blood, urine and sputum cultures have been obtained and pending (2) Tracheostomy complication: Code(s): J95.00 - Unspecified tracheostomy complication Status: Acute Assessment and Plan: patient [facility] the [facility], , this was the initial reason that the patient was transferred to the ER here at [facility] - the ER physician inserted a #6.5 Shiley - continue suctioning (3) Pneumonia: Qualifiers: Laterality: right Lung location: unspecified part of lung Pneumonia type: due to unspecified organism Qualified Code(s): J18.9 - Pneumonia, unspecified organism Code(s): J18.9 - Pneumonia, unspecified organism Status: Acute Assessment and Plan: pneumonia on chest x-ray - continue antibiotics as above (4) Mucus plugging of bronchi: Code(s): T17.500A - Unspecified foreign body in bronchus causing asphyxiation, initial encounter Status: Acute Assessment and Plan: treatment as above (5) Lung collapse: Code(s): J98.19 - Other pulmonary collapse Status: Acute Assessment and Plan: likely related to mucus plugging, continue bronchodilators, Pulmozyme and Mucomyst (6) Seizure disorder: Code(s): G40.909 - Epilepsy, unspecified, not intractable, without status epilepticus Status: Chronic Assessment and Plan: patient on multiple home medications for seizures will continue (7) UTI (urinary tract infection) due to urinary indwelling catheter: Code(s): T83.511A - Infection and inflammatory reaction due to indwelling urethral catheter, initial encounter; N39.0 - Urinary tract infection, site not specified Status: Acute Assessment and Plan: UA reflective of UTI - continue antibiotics as above (8) Chronic obstructive pulmonary disease: Code(s): J44.9 - Chronic obstructive pulmonary disease, unspecified Status: Acute Assessment and Plan: continue bronchodilators, currently on mechanical ventilation Plan DVT prophylaxis: Lovenox Stress ulcer prophylaxis: PPI Nutrition: will restart tube feeds Code Status: full code Critical Care Time Spent: 45 minutes Due to a high probability of clinically significant, life threatening deterioration, the patient required my highest level of preparedness to intervene emergently and I personally spent this critical care time directly and personally managing the patient. This critical care time included obtaining a history; examining the patient; pulse oximetry; ordering and review of studies; arranging urgent treatment with development of a management plan; evaluation of patient's response to treatment; frequent reassessment; and discussions with other providers. It was exclusive of separately billable procedures and treating other patients and teaching time. Please see Assessment and Plan section and the rest of the note for further information on patient assessment and treatment This dictation may have been done utilizing a voice recognition system. A
[2023-07-09] MEDS: ENOXAPARIN 40 MG/0.4 ML SYRINGE SUB-Q (09:23)
[2023-07-09] MEDS: VANCOMYCIN 1,500 MG/NS 500 ML 1,500 MG/500 ML BAG 250 MG IVPB ×2 (09:23→20:29)
[2023-07-09] MEDS: METOPROLOL TARTRATE 25 MG TABLET FEED TUBE ×2 (09:23→20:33)
[2023-07-09] MEDS: ASPIRIN 81 MG CHEWABLE TABLET FEED TUBE (09:23)
[2023-07-09] MEDS: levETIRAcetam ORAL SOL 500 MG/5 ML UDC 2000 MG FEED TUBE ×2 (09:23→20:32)
[2023-07-09] MEDS: FOLIC ACID 1 MG TABLET FEED TUBE (09:23)
[2023-07-09] MEDS: polyethylene glycoL 3350 17 GM POWD.PACK FEED TUBE ×2 (09:24→20:33)
[2023-07-09] MEDS: MUPIROCIN 2% OINT 22 GM TUBE 1 APPLIC EACH NARE ×2 (09:24→20:34)
[2023-07-09] MEDS: FAMOTIDINE 20 MG TABLET FEED TUBE ×2 (09:28→20:38)
[2023-07-09] MEDS: THIAMINE HCL 100 MG TABLET FEED TUBE (09:28)
[2023-07-09] MEDS: LACOSAMIDE (*CRX) 200 MG TABLET FEED TUBE ×2 (13:04→20:33)
[2023-07-09] MEDS: cloBAZam (*CRX) 10 MG TABLET FEED TUBE ×2 (13:04→20:33)
[2023-07-09] MEDS: VALPROIC ACID LIQ 250 MG/5 ML ORAL SOLUTION UDC 500 MG PO ×3 (13:04→20:32)
--- NOTE | 2023-07-09 17:26 | PM.IMPN ---
Progress Note: A&P Assessment and Plan (1) Chronic hypoxemic respiratory failure: Code(s): J96.11 - Chronic respiratory failure with hypoxia Status: Chronic (2) Acute and chronic respiratory failure: Qualifiers: Respiratory failure complication: hypoxia Qualified Code(s): J96.21 - Acute and chronic respiratory failure with hypoxia Code(s): J96.20 - Acute and chronic respiratory failure, unspecified whether with hypoxia or hypercapnia Status: Acute (3) Tracheostomy complication: Code(s): J95.00 - Unspecified tracheostomy complication Status: Acute (4) Pneumonia: Qualifiers: Laterality: bilateral Lung location: unspecified part of lung Pneumonia type: due to unspecified organism Qualified Code(s): J18.9 - Pneumonia, unspecified organism Code(s): J18.9 - Pneumonia, unspecified organism Status: Acute (5) Mucus plugging of bronchi: Code(s): T17.500A - Unspecified foreign body in bronchus causing asphyxiation, initial encounter Status: Acute Plan Stable. Weaning of mechanical ventilation per shot man. Continue vancomycin and meropenem. Continue to follow cultures. Repeat chest x-ray in a.m.. Re-expansion of the right lung after impressive collapse due to probable mucus plugging. Continue scheduled nebs Pulmozyme and Mucomyst. Lovenox for DVT prophylaxis. Continue Pepcid. Full code. Subjective Date/time seen: 07/09/23 17:26 Interval history: Remains on mechanical ventilation. Does not elicit complaints Review of Systems Review of Systems: All systems reviewed & are unremarkable except as noted in HPI and below (Subjective) Exam Const: General: comfortable and no acute distress Eyes: Pupils: Equal, round and reactive pupils present Neck: Neck: supple Resp: Auscultation: no wheezes and diminished lung sounds (Greater on right) Cardio: Rate: regular rate Rhythm: regular rhythm GI: GI Palp: No Tenderness to palpation present (GI) Extrem: General: no edema Objective Data Vital Signs Vital Signs: Vital Signs - 24 hr 07/08/23 20:00 07/08/23 20:20 07/08/23 20:53 Temperature 97.0 F L Pulse Rate 122 H 123 H 123 H Respiratory Rate 18 24 H 24 H Blood Pressure 123/79 Pulse Oximetry 92 92 Oxygen Delivery High Flow Therapy with Tr Oxygen Flow Rate 35 Fraction of Inspired Oxygen 50 07/08/23 20:50 07/08/23 22:03 07/09/23 00:00 Temperature 97.4 F L Pulse Rate 119 H 128 H 121 H Respiratory Rate 26 H 20 Blood Pressure 124/82 Pulse Oximetry 92 Oxygen Delivery Oxygen Flow Rate Fraction of Inspired Oxygen 07/08/23 20:05 07/08/23 20:00 07/09/23 00:00 Temperature Pulse Rate 122 H 123 H Respiratory Rate Blood Pressure Pulse Oximetry 92 Oxygen Delivery High Flow Therapy with Tr Oxygen Flow Rate 35 Fraction of Inspired Oxygen 07/09/23 02:50 07/09/23 03:35 07/09/23 03:38 Temperature Pulse Rate 130 H 134 H 125 H Respiratory Rate 30 H 28 H 28 H Blood Pressure Pulse Oximetry 94 Oxygen Delivery High Flow Therapy with Tr Oxygen Flow Rate 45 Fraction of Inspired Oxygen 80 07/09/23 03:50 07/09/23 05:46 07/09/23 04:45 Temperature 98.2 F Pulse Rate 146 H 117 H Respiratory Rate 32 H Blood Pressure 147/91 H Pulse Oximetry 98 100 Oxygen Delivery Mechanical Ventilation Mechanical Ventilation Oxygen Flow Rate Fraction of Inspired Oxygen 85 07/09/23 05:00 07/09/23 06:00 07/09/23 06:00 Temperature 96.4 F L Pulse Rate 136 H 117 H 117 H Respiratory Rate 27 H 19 Blood Pressure 124/91 H 114/95 H Pulse Oximetry 95 100 Oxygen Delivery Oxygen Flow Rate Fraction of Inspired Oxygen 07/09/23 07:15 07/09/23 07:15 07/09/23 07:25 Temperature Pulse Rate 117 H 109 H 110 H Respiratory Rate 18 21 H Blood Pressure Pulse Oximetry 100 Oxygen Delivery Mechanical Ventilation Oxygen Flow Rate Fraction
[2023-07-09 20:17] LABS: Hematocrit 39.8 % (42.0-52.0); Hemoglobin 12.8 g/dL (14.0-18.0); Immature Platelet Fraction Pct 15.3 % (0.9-11.2); Mean Corpuscular HGB Conc 32.2 g/dl (32-36); Mean Corpuscular Hemoglobin 32.6 pg (26-34); Mean Corpuscular Volume 101.3 fl (80-100); Mean Platelet Volume 13.5 fl (7.4-10.4); Red Blood Count 3.93 M/mm3 (4.6-6.20); Red Cell Distribution Width 15.2 % (11.5-14.5)
[2023-07-09] MEDS: CLOBAZAM 5 MG FEED TUBE (20:33)
[2023-07-09] MEDS: ATORVASTATIN 40 MG TABLET FEED TUBE (20:33)
[2023-07-09 20:37] LABS: Platelet Count Result 135 k/mm3 (150-375)
[2023-07-09] MEDS: CENTRAL LINE FLUSH 10 ML IV PUSH (22:37)
[2023-07-10] VITALS (26 sets, daily range): BP systolic 99–149; BP diastolic 66–90; PULSE 81–114; RESP 18–25; TEMP 36–36.9; O2SAT 99–100
[2023-07-10] MEDS: guaiFENesin 200 MG/10 ML UDC 600 MG FEED TUBE ×5 (00:19→23:56)
[2023-07-10] MEDS: IPRATROPIUM 0.5 MG/ALBUTEROL SULFATE 2.5 MG AMPUL.NEB 3 ML INHALATION ×4 (02:31→20:53)
[2023-07-10] MEDS: ACETYLCYSTEINE 20% INHAL SOLN 800 MG/4 ML VIAL 200 MG INHALATION ×4 (02:31→20:53)
[2023-07-10] MEDS: CENTRAL LINE FLUSH 10 ML IV PUSH ×3 (06:03→21:08)
[2023-07-10] MEDS: LANSOPRAZOLE ODT 30 MG TAB.RAP.DR FEED TUBE (06:03)
[2023-07-10] MEDS: MEROPENEM 1 GM/NS 100 ML 1 GM/100 ML BAG IVPB ×3 (06:03→23:52)
[2023-07-10 06:21] LABS: Alveolar/Arterial O2 Gradient 143.5 mmHg; Base Excess ABG -0.7 mEq/l (+/-2.0); Fractional Inspired Oxygen 45 %; HCO3 ABG 23.8 mEq/l (22.0-26.0); Methemoglobin ABG 0.5 %THb (0-1.5); Oxygen Content ABG 20.2 %vol (16.0-22.0); Oxygen Saturation ABG 98.7 % (95.0-100.0); Oxyhemoglobin 97.6 % THb (90.0-100.0); PO2 FiO2 Ratio Arterial Blood 2.96 %; Reduced Hemoglobin 1.9 %THb (0-5.0); Total Hemoglobin 14.6 g/dL (12.0-18.0); pH ABG 7.403 (7.350-7.450)
[2023-07-10 07:05] LABS: Basophils Percent Auto 0.3 % (0.2-1.2); Eosinophils Absolute Auto 0.4 K/mm3 (0-0.3); Eosinophils Percent Auto 3.9 % (0-4.4); Hematocrit 37.6 % (42.0-52.0); Hemoglobin 12.1 g/dL (14.0-18.0); Immature Granulocyte Absolute 0.02 K/mm3 (0.00-0.031); Immature Granulocyte Percent A 0.2 % (0-0.5); Lymphocytes Absolute Auto 2.04 K/mm3 (0.9-3.2); Lymphocytes Percent Auto 21.7 % (18.3-44.2); Mean Corpuscular HGB Conc 32.2 g/dl (32-36); Mean Corpuscular Hemoglobin 32.6 pg (26-34); Mean Corpuscular Volume 101.3 fl (80-100); Mean Platelet Volume 12.6 fl (7.4-10.4); Monocytes Absolute Auto 1.2 K/mm3 (0.1-0.6); Monocytes Percent Auto 12.5 % (2.6-8.5); Neutrophils Absolute Auto 5.8 K/mm3 (1.3-6.7); Neutrophils Percent Auto 61.4 % (45.5-73.1); Platelet Count Result 120 k/mm3 (150-375); Red Blood Count 3.71 M/mm3 (4.6-6.20); Red Cell Distribution Width 15.2 % (11.5-14.5); White Blood Count 9.4 K/mm3 (4.5-10.0)
[2023-07-10 07:18] LABS: Alanine Aminotransferase 17 U/L (6-50); Albumin Level 3.4 g/dL (3.5-5.1); Alkaline Phosphatase 101 U/L (38-126); Anion Gap 6 mmol/L (8-16); Aspartate Amino Transferase 28 U/L (17-59); Bilirubin,Total 0.6 mg/dL (0.2-1.3); Blood Urea Nitrogen 12 mg/dL (9-20); Calcium 8.8 mg/dL (8.4-10.2); Carbon Dioxide 26 mmol/L (22-30); Chloride 104 mmol/L (98-107); Estimated CRCL calculation 128 ml/min; Estimated Glomerular Filt Rate > 60; Glucose 110 mg/dL (65-110); Magnesium 1.9 mg/dL (1.6-2.3); Phosphorus 3.2 mg/dL (2.5-4.5); Sodium 136 mmol/L (137-145)
[2023-07-10 07:33] LABS: Vancomycin Trough 13.8 ug/mL (10.0-20.0)
[2023-07-10] MEDS: DORNASE ALFA INH SOLN 1 MG/ML 2.5 ML AMP 2.5 MG INHALATION ×2 (07:39→20:52)
[2023-07-10] MEDS: ASPIRIN 81 MG CHEWABLE TABLET FEED TUBE (09:06)
[2023-07-10] MEDS: VALPROIC ACID LIQ 250 MG/5 ML ORAL SOLUTION UDC 500 MG PO ×4 (09:07→21:07)
[2023-07-10] MEDS: ENOXAPARIN 40 MG/0.4 ML SYRINGE SUB-Q (09:07)
[2023-07-10] MEDS: polyethylene glycoL 3350 17 GM POWD.PACK FEED TUBE ×2 (09:07→21:07)
[2023-07-10] MEDS: levETIRAcetam ORAL SOL 500 MG/5 ML UDC 2000 MG FEED TUBE ×2 (09:07→21:06)
[2023-07-10] MEDS: MUPIROCIN 2% OINT 22 GM TUBE 1 APPLIC EACH NARE ×2 (09:07→21:07)
[2023-07-10] MEDS: METOPROLOL TARTRATE 25 MG TABLET FEED TUBE ×2 (09:08→21:07)
[2023-07-10] MEDS: FOLIC ACID 1 MG TABLET FEED TUBE (09:08)
[2023-07-10] MEDS: VANCOMYCIN 1,750 MG/NS 500 ML 1,750 MG/500 ML BAG 250 MG IVPB ×2 (09:09→21:08)
[2023-07-10] MEDS: LACOSAMIDE (*CRX) 200 MG TABLET FEED TUBE ×2 (09:09→21:06)
[2023-07-10] MEDS: THIAMINE HCL 100 MG TABLET FEED TUBE (09:09)
[2023-07-10] MEDS: cloBAZam (*CRX) 10 MG TABLET FEED TUBE ×2 (09:09→21:06)
[2023-07-10] MEDS: FAMOTIDINE 20 MG TABLET FEED TUBE ×2 (09:09→21:07)
--- NOTE | 2023-07-10 09:57 | WPDINTPN ---
Progress Note: A&P Assessment and Plan (1) Acute and chronic respiratory failure: Qualifiers: Respiratory failure complication: hypoxia Qualified Code(s): J96.21 - Acute and chronic respiratory failure with hypoxia Code(s): J96.20 - Acute and chronic respiratory failure, unspecified whether with hypoxia or hypercapnia Status: Acute Assessment and Plan: acute on chronic respiratory failure likely related to mucus plugging with lower right lung collapse -07/09: patient was hypoxic on the medical floor, was bagged, placed on mechanical ventilation in the ICU - 07/09:chest x-ray and ABGs reviewed, ventilator adjusted, increase PEEP to 8 -chest x-ray this morning: Mild atelectasis at left lung base., right lung opacifications has improved, good aeration bilaterally - continue bronchodilators -continue Mucomyst inhalation -continue Pulmozyme - will place patient with left lung down -continues to have increased secretions from the tracheostomy which are being suctioned - chest PT q.6 hours with vest treatment and percussion -continue vancomycin and meropenem for pneumonia (07/09) - 07/08: blood cultures -preliminary report is negative x2 -07/08: Urine cultures pending -07/09: Sputum cultures pending (2) Tracheostomy complication: Code(s): J95.00 - Unspecified tracheostomy complication Status: Acute Assessment and Plan: [facility], , this was the initial reason that the patient was transferred to the ER here at [facility] - the ER physician inserted a #6.5 Shiley - continue suctioning (3) Pneumonia: Qualifiers: Laterality: right Lung location: unspecified part of lung Pneumonia type: due to unspecified organism Qualified Code(s): J18.9 - Pneumonia, unspecified organism Code(s): J18.9 - Pneumonia, unspecified organism Status: Acute Assessment and Plan: pneumonia on chest x-ray - continue antibiotics as above (4) Mucus plugging of bronchi: Code(s): T17.500A - Unspecified foreign body in bronchus causing asphyxiation, initial encounter Status: Acute Assessment and Plan: treatment as above (5) Lung collapse: Code(s): J98.19 - Other pulmonary collapse Status: Acute Assessment and Plan: likely related to mucus plugging, continue bronchodilators, Pulmozyme and Mucomyst (6) Seizure disorder: Code(s): G40.909 - Epilepsy, unspecified, not intractable, without status epilepticus Status: Chronic Assessment and Plan: patient on multiple home medications for seizures will continue (7) UTI (urinary tract infection) due to urinary indwelling catheter: Code(s): T83.511A - Infection and inflammatory reaction due to indwelling urethral catheter, initial encounter; N39.0 - Urinary tract infection, site not specified Status: Acute Assessment and Plan: UA reflective of UTI - continue antibiotics as above (8) Chronic obstructive pulmonary disease: Code(s): J44.9 - Chronic obstructive pulmonary disease, unspecified Status: Acute Assessment and Plan: continue bronchodilators, currently on mechanical ventilation Plan DVT prophylaxis: Lovenox Stress ulcer prophylaxis: PPI Nutrition: Tolerating tube feed Code Status: full code Critical Care Time Spent: 32 minutes Due to a high probability of clinically significant, life threatening deterioration, the patient required my highest level of preparedness to intervene emergently and I personally spent this critical care time directly and personally managing the patient. This critical care time included obtaining a history; examining the patient; pulse oximetry; ordering and review of studies; arranging urgent treatment with development of a management plan; evaluation of patient's response to treatment; frequent reassessment; and discussions with other providers. It w
--- NOTE | 2023-07-10 16:15 | PM.IMPN ---
Progress Note: A&P Assessment and Plan (1) Pneumonia: Qualifiers: Laterality: bilateral Lung location: unspecified part of lung Pneumonia type: due to unspecified organism Qualified Code(s): J18.9 - Pneumonia, unspecified organism Code(s): J18.9 - Pneumonia, unspecified organism Status: Acute (2) Complication of tracheostomy tube: Code(s): J95.00 - Unspecified tracheostomy complication Status: Acute (3) Abnormal chest xray: Code(s): R93.89 - Abnormal findings on diagnostic imaging of other specified body structures Status: Acute (4) Chronic hypoxemic respiratory failure: Code(s): J96.11 - Chronic respiratory failure with hypoxia Status: Chronic (5) Acute and chronic respiratory failure: Qualifiers: Respiratory failure complication: hypoxia Qualified Code(s): J96.21 - Acute and chronic respiratory failure with hypoxia Code(s): J96.20 - Acute and chronic respiratory failure, unspecified whether with hypoxia or hypercapnia Status: Acute (6) Increased tracheal secretions: Code(s): J39.8 - Other specified diseases of upper respiratory tract Status: Acute Plan This is a 63-year-old black male with past medical history cerebrovascular accident with residual aphasia and dysphagia and tracheostomy/G-tube placement, COPD, esophageal diverticulum, gastroparesis, iron deficiency anemia, seizure disorder, vascular dementia and psychotic disturbance. [facility] and reportedly the tracheostomy became dislodged and they were unable to replace it. A 6.5 Shiley was placed in the ER and [facility]. The patient was admitted to medical floor and then subsequently desaturated and was transferred to ICU to be placed on mechanical ventilation. Chest SA revealed a collapsed right lung likely due to mucus plugging and the patient has had increased secretions at the tracheostomy. On 07/10/2023 patient's x-rays better. Reveals atelectasis at the left lung base which is probably due to him laying on the left side since he had right mucus plugging. Although overall better. Well Blower at this time to manage mechanical ventilation and timing of extubation. Continue antibiotics and chest therapy. Depending on the severity of his secretions ongoing may have to institutes chronic anticholinergic therapy however that does come with side effects. Leukocytosis is resolved and urine sputum and blood cultures are pending. FEN: Saline lock IV. Tube feeds. GI prophylaxis: Pepcid b.i.d. DVT prophylaxis: Lovenox 40 mg subQ daily Lines: Peripheral IV, G-tube, tracheostomy Code Status: Full code Dispo: Stable in ICU. Subjective Date/time seen: 07/10/23 16:15 Interval history: No acute overnight events. Patient is nonverbal but does not elicit any complaints. He appears comfortable. Review of Systems Review of Systems: ROS unobtainable: Yes unobtainable due to endotracheal tube and unobtainable due to mental status Exam Const: General: comfortable and no acute distress Eyes: Pupils: Equal, round and reactive pupils present Resp: Auscultation: diminished lung sounds (Slightly diminished on the right side) Cardio: Rate: regular rate Rhythm: regular rhythm GI: GI Palp: Yes Soft to palpation and No Tenderness to palpation present (GI) Extrem: General: no edema Objective Data Vital Signs Vital Signs: Vital Signs - 24 hr 07/09/23 18:00 07/09/23 18:00 07/09/23 20:11 Temperature 98.7 F Pulse Rate 92 91 88 Respiratory Rate 21 H Blood Pressure 148/86 H Pulse Oximetry 100 100 Oxygen Delivery Mechanical Ventilation Fraction of Inspired Oxygen 60 07/09/23 20:14 07/09/23 20:33 07/09/23 20:00 Temperature Pulse Rate 88 106 H 91 Respiratory Rate 23 H Blood Pressure Pulse Oximetry Oxygen Delivery Fraction of Inspired Oxygen 07/09/23 20:00 07/09/23 20:00 07/09/23 22:00 Temperature 9
[2023-07-10] MEDS: CLOBAZAM 5 MG FEED TUBE (21:06)
[2023-07-10] MEDS: ATORVASTATIN 40 MG TABLET FEED TUBE (21:06)
[2023-07-10] MEDS: traMADol HCL (*CRX) 50 MG TABLET PO (22:23)
[2023-07-11] VITALS (31 sets, daily range): BP systolic 115–144; BP diastolic 71–87; PULSE 70–98; RESP 11–20; TEMP 36.1–37.2; O2SAT 94–100; BMI 21.7
[2023-07-11] MEDS: IPRATROPIUM 0.5 MG/ALBUTEROL SULFATE 2.5 MG AMPUL.NEB 3 ML INHALATION ×4 (01:52→20:30)
[2023-07-11] MEDS: ACETYLCYSTEINE 20% INHAL SOLN 800 MG/4 ML VIAL 200 MG INHALATION ×4 (01:56→20:30)
[2023-07-11 04:48] LABS: Basophils Percent Auto 0.3 % (0.2-1.2); Eosinophils Absolute Auto 0.5 K/mm3 (0-0.3); Eosinophils Percent Auto 6.5 % (0-4.4); Hemoglobin 10.4 g/dL (14.0-18.0); Immature Granulocyte Absolute 0.01 K/mm3 (0.00-0.031); Immature Granulocyte Percent A 0.1 % (0-0.5); Immature Platelet Fraction Pct 16.1 % (0.9-11.2); Mean Corpuscular HGB Conc 31.5 g/dl (32-36); Mean Corpuscular Hemoglobin 32.4 pg (26-34); Mean Corpuscular Volume 102.8 fl (80-100); Monocytes Absolute Auto 0.9 K/mm3 (0.1-0.6); Monocytes Percent Auto 12.8 % (2.6-8.5); Neutrophils Absolute Auto 3.3 K/mm3 (1.3-6.7); Neutrophils Percent Auto 48.3 % (45.5-73.1); Platelet Count Result 94 k/mm3 (150-375); Red Blood Count 3.21 M/mm3 (4.6-6.20); Red Cell Distribution Width 15.3 % (11.5-14.5); White Blood Count 6.9 K/mm3 (4.5-10.0)
[2023-07-11 05:02] LABS: Alanine Aminotransferase 16 U/L (6-50); Albumin Level 3.1 g/dL (3.5-5.1); Alkaline Phosphatase 95 U/L (38-126); Anion Gap 1 mmol/L (8-16); Aspartate Amino Transferase 26 U/L (17-59); Bilirubin,Total 0.3 mg/dL (0.2-1.3); Blood Urea Nitrogen 9 mg/dL (9-20); Calcium 8.8 mg/dL (8.4-10.2); Carbon Dioxide 31 mmol/L (22-30); Chloride 107 mmol/L (98-107); Estimated CRCL calculation 156 ml/min; Estimated Glomerular Filt Rate > 60; Glucose 105 mg/dL (65-110); Phosphorus 2.5 mg/dL (2.5-4.5); Potassium 4.1 mmol/L (3.4-5.0); Sodium 139 mmol/L (137-145)
[2023-07-11 05:20] LABS: Large Platelets Present; Platelet Estimate Decreased (Adequate)
[2023-07-11 05:21] LABS: Anisocytosis 1+ (NORMAL); Burr Cells 1+ (NORMAL); Schistocytes None Seen (NORMAL)
[2023-07-11 05:34] LABS: Alveolar/Arterial O2 Gradient 55.8 mmHg; Base Excess ABG 2.4 mEq/l (+/-2.0); Carboxyhemoglobin 0.3 % THb (0-2.0); Fractional Inspired Oxygen 35 %; Methemoglobin ABG 0.3 %THb (0-1.5); Oxygen Content ABG 16.6 %vol (16.0-22.0); Oxygen Saturation ABG 98.9 % (95.0-100.0); Oxyhemoglobin 97.6 % THb (90.0-100.0); PCO2 ABG 42.1 mmHg (35.0-45.0); PO2 ABG 144.8 mmHg (80.0-100.0); PO2 FiO2 Ratio Arterial Blood 4.14 %; Reduced Hemoglobin 1.8 %THb (0-5.0); Total Hemoglobin 11.9 g/dL (12.0-18.0); pH ABG 7.425 (7.350-7.450)
[2023-07-11 05:36] LABS: Device VENTILATOR; Modified Allen's Test Pass; Site Drawn RIGHT RADIAL
[2023-07-11 05:37] LABS: Arterial Blood Gas PEEP 8 cmH2O; Arterial Blood Gas Pressure Support 10 cmH2O; Arterial Blood Gas Vent Mode SPONTANEOUS
[2023-07-11] MEDS: guaiFENesin 200 MG/10 ML UDC 600 MG FEED TUBE ×3 (06:09→20:12)
[2023-07-11] MEDS: traMADol HCL (*CRX) 50 MG TABLET PO (06:10)
[2023-07-11] MEDS: LANSOPRAZOLE ODT 30 MG TAB.RAP.DR FEED TUBE (06:10)
[2023-07-11] MEDS: MEROPENEM 1 GM/NS 100 ML 1 GM/100 ML BAG IVPB (06:11)
[2023-07-11] MEDS: CENTRAL LINE FLUSH 10 ML IV PUSH ×3 (06:11→20:13)
[2023-07-11] MEDS: DORNASE ALFA INH SOLN 1 MG/ML 2.5 ML AMP 2.5 MG INHALATION ×2 (08:43→20:30)
[2023-07-11] MEDS: levETIRAcetam ORAL SOL 500 MG/5 ML UDC 2000 MG FEED TUBE ×2 (08:54→20:11)
[2023-07-11] MEDS: METOPROLOL TARTRATE 25 MG TABLET FEED TUBE ×2 (08:55→20:12)
[2023-07-11] MEDS: ENOXAPARIN 40 MG/0.4 ML SYRINGE SUB-Q (08:55)
[2023-07-11] MEDS: polyethylene glycoL 3350 17 GM POWD.PACK FEED TUBE ×2 (08:55→20:12)
[2023-07-11] MEDS: VALPROIC ACID LIQ 250 MG/5 ML ORAL SOLUTION UDC 500 MG PO ×3 (08:55→20:12)
[2023-07-11] MEDS: LACOSAMIDE (*CRX) 200 MG TABLET FEED TUBE ×2 (08:56→20:12)
[2023-07-11] MEDS: FAMOTIDINE 20 MG TABLET FEED TUBE ×2 (08:56→20:13)
[2023-07-11] MEDS: cloBAZam (*CRX) 10 MG TABLET FEED TUBE ×2 (08:56→20:13)
[2023-07-11] MEDS: THIAMINE HCL 100 MG TABLET FEED TUBE (08:57)
[2023-07-11] MEDS: ASPIRIN 81 MG CHEWABLE TABLET FEED TUBE (08:57)
[2023-07-11] MEDS: FOLIC ACID 1 MG TABLET FEED TUBE (08:57)
[2023-07-11] MEDS: MUPIROCIN 2% OINT 22 GM TUBE 1 APPLIC EACH NARE ×2 (08:57→20:13)
[2023-07-11] MEDS: VANCOMYCIN 1,750 MG/NS 500 ML 1,750 MG/500 ML BAG 250 MG IVPB ×2 (09:12→23:54)
[2023-07-11] MEDS: PIPERACILLIN/TAZ 4.5G/NS 100ML 4.5 GM/100 ML BAG IVPB ×2 (11:41→20:10)
[2023-07-11 12:03] LABS: Glucose Point of Care 105 mg/dl (65-105)
--- NOTE | 2023-07-11 12:55 | WPDINTPN ---
Progress Note: A&P Assessment and Plan (1) Acute and chronic respiratory failure: Qualifiers: Respiratory failure complication: hypoxia Qualified Code(s): J96.21 - Acute and chronic respiratory failure with hypoxia Code(s): J96.20 - Acute and chronic respiratory failure, unspecified whether with hypoxia or hypercapnia Status: Acute Assessment and Plan: acute on chronic respiratory failure likely related to mucus plugging with lower right lung collapse -07/09: patient was hypoxic on the medical floor, was bagged, placed on mechanical ventilation in the ICU - 07/09:chest x-ray and ABGs reviewed, ventilator adjusted, increase PEEP to 8 -chest x-ray this morning: Tracheostomy cannula and left-sided PICC line are in place. Questionable minimal bibasilar pulmonary edema/atelectasis.? Cardiomediastinal silhouette is stable. Bones and soft tissues are unremarkable - continue bronchodilators -continue Mucomyst inhalation -continue Pulmozyme - will place patient with left lung down -continues to have increased secretions from the tracheostomy which are being suctioned - chest PT q.6 hours with vest treatment and percussion -patient has been tolerating pressure support ventilation 03/06 all day and all night yesterday -will place patient on high-flow therapy - 07/08: blood cultures -preliminary report is negative x2 -07/08: Urine cultures growing Pseudomonas resistant to imipenem and meropenem -07/09: Sputum cultures pending -continue vancomycin (07/09), will discontinue meropenem and start Zosyn (07/11) for Pseudomonas in urine (2) Tracheostomy complication: Code(s): J95.00 - Unspecified tracheostomy complication Status: Acute Assessment and Plan: patient had [facility] at the [facility], , this was the initial reason that the patient was transferred to the ER here at [facility] - the ER physician inserted a #6.5 Shiley - continue suctioning (3) Pneumonia: Qualifiers: Laterality: right Lung location: unspecified part of lung Pneumonia type: due to unspecified organism Qualified Code(s): J18.9 - Pneumonia, unspecified organism Code(s): J18.9 - Pneumonia, unspecified organism Status: Acute Assessment and Plan: pneumonia on chest x-ray - continue antibiotics as above (4) Mucus plugging of bronchi: Code(s): T17.500A - Unspecified foreign body in bronchus causing asphyxiation, initial encounter Status: Acute Assessment and Plan: treatment as above (5) Lung collapse: Code(s): J98.19 - Other pulmonary collapse Status: Acute Assessment and Plan: likely related to mucus plugging, continue bronchodilators, Pulmozyme and Mucomyst (6) Seizure disorder: Code(s): G40.909 - Epilepsy, unspecified, not intractable, without status epilepticus Status: Chronic Assessment and Plan: patient on multiple home medications for seizures will continue (7) UTI (urinary tract infection) due to urinary indwelling catheter: Code(s): T83.511A - Infection and inflammatory reaction due to indwelling urethral catheter, initial encounter; N39.0 - Urinary tract infection, site not specified Status: Acute Assessment and Plan: UA reflective of UTI - continue antibiotics as above (8) Chronic obstructive pulmonary disease: Code(s): J44.9 - Chronic obstructive pulmonary disease, unspecified Status: Acute Assessment and Plan: continue bronchodilators, currently on mechanical ventilation Plan DVT prophylaxis: Lovenox Stress ulcer prophylaxis: PPI Nutrition: Tolerating tube feed Code Status: full code Critical Care Time Spent: 31 minutes -if patient tolerates high-flow therapy, can transfer him out of the ICU Due to a high probability of clinically significant, life threatening deterioration, the patient required my highest level of preparedness to intervene
[2023-07-11 13:38] LABS: Arterial Blood Gas PEEP 8 cmH2O; Arterial Blood Gas Tidal Volume 400 ml; Arterial Blood Gas Vent Mode CMV; Arterial Blood Gas Ventilator rate 18 /MIN; Device VENTILATOR
--- NOTE | 2023-07-11 16:39 | PM.IMPN ---
Progress Note: A&P Assessment and Plan (1) Pneumonia: Qualifiers: Laterality: bilateral Lung location: unspecified part of lung Pneumonia type: due to unspecified organism Qualified Code(s): J18.9 - Pneumonia, unspecified organism Code(s): J18.9 - Pneumonia, unspecified organism Status: Acute (2) Complication of tracheostomy tube: Code(s): J95.00 - Unspecified tracheostomy complication Status: Acute (3) Abnormal chest xray: Code(s): R93.89 - Abnormal findings on diagnostic imaging of other specified body structures Status: Acute (4) Chronic hypoxemic respiratory failure: Code(s): J96.11 - Chronic respiratory failure with hypoxia Status: Chronic (5) Acute and chronic respiratory failure: Qualifiers: Respiratory failure complication: hypoxia Qualified Code(s): J96.21 - Acute and chronic respiratory failure with hypoxia Code(s): J96.20 - Acute and chronic respiratory failure, unspecified whether with hypoxia or hypercapnia Status: Acute (6) Increased tracheal secretions: Code(s): J39.8 - Other specified diseases of upper respiratory tract Status: Acute Plan This is a 63-year-old black male with past medical history cerebrovascular accident with residual aphasia and dysphagia and tracheostomy/G-tube placement, COPD, esophageal diverticulum, gastroparesis, iron deficiency anemia, seizure disorder, vascular dementia and psychotic disturbance. Patient resides in shelter and reportedly the tracheostomy became dislodged and they were unable to replace it. A 6.5 Shiley was placed in the ER and Luis Fernando. The patient was admitted to medical floor and then subsequently desaturated and was transferred to ICU to be placed on mechanical ventilation. Chest SA revealed a collapsed right lung likely due to mucus plugging and the patient has had increased secretions at the tracheostomy. On 07/10/2023 patient's x-rays better. Reveals atelectasis at the left lung base which is probably due to him laying on the left side since he had right mucus plugging. Although overall better. Non Destructive Testing Specialist at this time to manage mechanical ventilation and timing of extubation. Continue antibiotics and chest therapy. Depending on the severity of his secretions ongoing may have to institutes chronic anticholinergic therapy however that does come with side effects. Leukocytosis is resolved and urine sputum and blood cultures are pending. On 07/11/2023 he has now been weaned down to high-flow trach collar therapy with 30 L flow rate and 30% FiO2. Chemistry stable as well. Agree with continuing Zosyn for Pseudomonas in the urine. FEN: Saline lock IV. Tube feeds. GI prophylaxis: Pepcid b.i.d. DVT prophylaxis: Lovenox 40 mg subQ daily Lines: Peripheral IV, G-tube, tracheostomy Code Status: Full code Dispo: Stable in ICU. Subjective Date/time seen: 07/11/23 16:39 Interval history: Patient rests comfortably. At this time he is drowsy from slumber. Denies any complaints Review of Systems Review of Systems: All systems reviewed & are unremarkable except as noted in HPI and below (Subjective) Exam Const: General: comfortable and no acute distress Eyes: Pupils: Equal, round and reactive pupils present Resp: Effort & Inspection: normal respiratory effort Auscultation: clear to auscultation bilaterally Cardio: Rate: regular rate Rhythm: regular rhythm GI: GI Palp: Yes Soft to palpation and No Tenderness to palpation present (GI) Extrem: General: no edema Objective Data Vital Signs Vital Signs: Vital Signs - 24 hr 07/10/23 17:41 07/10/23 17:47 07/10/23 21:07 Temperature Pulse Rate 93 94 99 Respiratory Rate 19 Blood Pressure 122/72 Pulse Oximetry 100 99 Oxygen Delivery Mechanical Ventilation Oxygen Flow Rate Fraction of Inspired Oxygen 35 07/10/23 21:00 07/10/23 21:00 07/10/23 21:00 Temperature 97.7 F Pu
[2023-07-11] MEDS: CLOBAZAM 5 MG FEED TUBE (20:13)
[2023-07-11] MEDS: ATORVASTATIN 40 MG TABLET FEED TUBE (20:13)
[2023-07-11] MEDS: LORazepam INJ (*CRX) 2 MG/ML VIAL 1 MG IV PUSH (23:59)
[2023-07-12] VITALS (29 sets, daily range): BP systolic 110–152; BP diastolic 66–75; PULSE 70–120; RESP 10–22; TEMP 36.3–36.6; O2SAT 97–100
[2023-07-12 00:03] LABS: Pneumococcal Antigen Urine Not Detected (Not Detected)
[2023-07-12] MEDS: PIPERACILLIN/TAZ 4.5G/NS 100ML 4.5 GM/100 ML BAG IVPB ×4 (00:07→18:37)
--- NOTE | 2023-07-12 00:24 | PC.NURSE ---
During rounding on the 2300 hour, it was discovered patient had removed his trach tube. RN called immediately for assistance. The patient s obturator was placed in stoma. WOOD EXPERIMENTAL MECHANIC and MD were called and responded. MD and WOOD EXPERIMENTAL MECHANIC responded to replace the trach and then MD ordered a chest XR. Patient never had acute distress and vitals remained WNL during the incident.
[2023-07-12] MEDS: guaiFENesin 200 MG/10 ML UDC 600 MG FEED TUBE ×4 (01:39→18:37)
[2023-07-12] MEDS: IPRATROPIUM 0.5 MG/ALBUTEROL SULFATE 2.5 MG AMPUL.NEB 3 ML INHALATION ×4 (02:54→19:58)
[2023-07-12] MEDS: ACETYLCYSTEINE 20% INHAL SOLN 800 MG/4 ML VIAL 200 MG INHALATION (02:54)
[2023-07-12 05:49] LABS: Basophils Percent Auto 0.3 % (0.2-1.2); Eosinophils Absolute Auto 0.5 K/mm3 (0-0.3); Eosinophils Percent Auto 8.1 % (0-4.4); Hematocrit 32.1 % (42.0-52.0); Hemoglobin 10.2 g/dL (14.0-18.0); Immature Granulocyte Absolute 0.01 K/mm3 (0.00-0.031); Immature Granulocyte Percent A 0.2 % (0-0.5); Immature Platelet Fraction Pct 12.2 % (0.9-11.2); Lymphocytes Percent Auto 30.4 % (18.3-44.2); Mean Corpuscular HGB Conc 31.8 g/dl (32-36); Mean Corpuscular Volume 103.9 fl (80-100); Mean Platelet Volume 13.1 fl (7.4-10.4); Monocytes Absolute Auto 0.6 K/mm3 (0.1-0.6); Monocytes Percent Auto 10.8 % (2.6-8.5); Neutrophils Percent Auto 50.2 % (45.5-73.1); Platelet Count Result 101 k/mm3 (150-375); Red Blood Count 3.09 M/mm3 (4.6-6.20); White Blood Count 5.9 K/mm3 (4.5-10.0)
[2023-07-12 06:00] LABS: Alanine Aminotransferase 16 U/L (6-50); Alkaline Phosphatase 96 U/L (38-126); Anion Gap 2 mmol/L (8-16); Aspartate Amino Transferase 27 U/L (17-59); Bilirubin,Total 0.3 mg/dL (0.2-1.3); Blood Urea Nitrogen 9 mg/dL (9-20); Calcium 8.8 mg/dL (8.4-10.2); Carbon Dioxide 32 mmol/L (22-30); Chloride 107 mmol/L (98-107); Estimated CRCL calculation 128 ml/min; Estimated Glomerular Filt Rate > 60; Glucose 100 mg/dL (65-110); Magnesium 1.9 mg/dL (1.6-2.3); Phosphorus 2.4 mg/dL (2.5-4.5); Potassium 3.9 mmol/L (3.4-5.0); Sodium 141 mmol/L (137-145)
[2023-07-12] MEDS: CENTRAL LINE FLUSH 10 ML IV PUSH ×3 (06:11→22:22)
[2023-07-12] MEDS: LANSOPRAZOLE ODT 30 MG TAB.RAP.DR FEED TUBE (06:11)
[2023-07-12] MEDS: ASPIRIN 81 MG CHEWABLE TABLET FEED TUBE (08:35)
[2023-07-12] MEDS: cloBAZam (*CRX) 10 MG TABLET FEED TUBE ×2 (08:35→22:21)
[2023-07-12] MEDS: METOPROLOL TARTRATE 25 MG TABLET FEED TUBE ×2 (08:35→21:15)
[2023-07-12] MEDS: FAMOTIDINE 20 MG TABLET FEED TUBE ×2 (08:35→22:22)
[2023-07-12] MEDS: polyethylene glycoL 3350 17 GM POWD.PACK FEED TUBE ×2 (08:35→21:13)
[2023-07-12] MEDS: VALPROIC ACID LIQ 250 MG/5 ML ORAL SOLUTION UDC 500 MG PO ×4 (08:35→21:17)
[2023-07-12] MEDS: FOLIC ACID 1 MG TABLET FEED TUBE (08:35)
[2023-07-12] MEDS: MUPIROCIN 2% OINT 22 GM TUBE 1 APPLIC EACH NARE ×2 (08:36→21:23)
[2023-07-12] MEDS: POTASSIUM/PHOSPHORUS/SODIUM 1.5 GM PACKET 1 PACKET PO (08:36)
[2023-07-12] MEDS: LACOSAMIDE (*CRX) 200 MG TABLET FEED TUBE ×2 (08:36→21:15)
[2023-07-12] MEDS: levETIRAcetam ORAL SOL 500 MG/5 ML UDC 2000 MG FEED TUBE ×2 (08:43→21:17)
[2023-07-12] MEDS: THIAMINE HCL 100 MG TABLET FEED TUBE (08:48)
--- NOTE | 2023-07-12 09:19 | WPDINTPN ---
Progress Note: A&P Assessment and Plan (1) Acute and chronic respiratory failure: Qualifiers: Respiratory failure complication: hypoxia Qualified Code(s): J96.21 - Acute and chronic respiratory failure with hypoxia Code(s): J96.20 - Acute and chronic respiratory failure, unspecified whether with hypoxia or hypercapnia Status: Acute Assessment and Plan: acute on chronic respiratory failure likely related to mucus plugging with lower right lung collapse -07/09: patient was hypoxic on the medical floor, was bagged, placed on mechanical ventilation in the ICU - 07/09:chest x-ray and ABGs reviewed, ventilator adjusted, increase PEEP to 8 Now improved. Chest x-ray Mild bibasilar pulmonary edema pattern. Support tubes, as above. - continue bronchodilators, CPT -discontinue Mucomyst inhalation, Pulmozyme -patient currently on high-flow oxygen test was tracheostomy. I have weaned down FiO2 to 25% and fluids at 30 L. continue to wean oxygen - 07/08: blood cultures -preliminary report is negative x2 -07/08: Urine cultures growing Pseudomonas resistant to imipenem and meropenem -07/09: Sputum cultures negative preliminary -continue vancomycin (07/09), will discontinue meropenem and start Zosyn (07/11) for Pseudomonas in urine (2) Tracheostomy complication: Code(s): J95.00 - Unspecified tracheostomy complication Status: Acute Assessment and Plan: patient had dislodged his tracheostomy at the [facility], , this was the initial reason that the patient was transferred to the ER here at [facility] - the ER physician inserted a #6.5 Shiley - continue suctioning (3) Pneumonia: Qualifiers: Laterality: right Lung location: unspecified part of lung Pneumonia type: due to unspecified organism Qualified Code(s): J18.9 - Pneumonia, unspecified organism Code(s): J18.9 - Pneumonia, unspecified organism Status: Acute Assessment and Plan: pneumonia on chest x-ray - continue antibiotics as above (4) Mucus plugging of bronchi: Code(s): T17.500A - Unspecified foreign body in bronchus causing asphyxiation, initial encounter Status: Acute Assessment and Plan: treatment as above (5) Lung collapse: Code(s): J98.19 - Other pulmonary collapse Status: Acute Assessment and Plan: likely related to mucus plugging, resolved (6) Seizure disorder: Code(s): G40.909 - Epilepsy, unspecified, not intractable, without status epilepticus Status: Chronic Assessment and Plan: patient on multiple home medications for seizures will continue (7) UTI (urinary tract infection) due to urinary indwelling catheter: Code(s): T83.511A - Infection and inflammatory reaction due to indwelling urethral catheter, initial encounter; N39.0 - Urinary tract infection, site not specified Status: Acute Assessment and Plan: UA reflective of UTI - continue antibiotics as above (8) Chronic obstructive pulmonary disease: Code(s): J44.9 - Chronic obstructive pulmonary disease, unspecified Status: Acute Assessment and Plan: continue bronchodilators, currently on mechanical ventilation Plan DVT prophylaxis: Lovenox Stress ulcer prophylaxis: PPI Nutrition: Tolerating tube feed Code Status: full code Transfer out of ICU today Subjective Date/time seen: 07/12/23 Overnight events reviewed. Afebrile Continues to be on a high-flow oxygen attached to his tracheostomy Not on any continuous infusion Tolerating tube feeds Good urine output Other vitals acceptable Interval history: Reason for consult: Right lung opacification, mucus plugging, acute? on chronic respiratory failure,? pneumonia, dislodged tracheostomy Review of Systems Review of Systems: ROS unobtainable: Yes unobtainable due to medical condition, unobtainable due to mental status and other ( tracheostomy) Exam Narrative: Savage
[2023-07-12] MEDS: VANCOMYCIN 1,750 MG/NS 500 ML 1,750 MG/500 ML BAG 250 MG IVPB (10:32)
--- NOTE | 2023-07-12 11:09 | PCNFU ---
Nutrition Follow-Up Complete: Inadequate energy intake related to NPO status, need for PEG tube as evidenced by need for full tube feeding goal: Meet estimated protein energy needs Tolerate tube feeding at goal rate Patient is progressing towards goal. We will continue current goal. Pt current nutrition is Jevity 1.5 at 50 ml/hr Last recorded weight is 70.6 kg, stable Bowel Motility:+Bm reported 07/12 Labs Reviewed:Cr 0.5,Hct 32.1,Hgb 10.2 Meds Noted:Zosyn, Vancomycin, Thiamine, Keppra, Lopressor. Skin: WNL Additional Notes: Patient remains on PEG tube feedings of Jevity 1.5 at 70 ml/hr. Tolerating per nursing. Tube feedings of Jevity 1.5 at 50 ml/hr providing 1650 kcal meeting 93% at 25 kcal/kg, 70 g protein 100% estimated needs at 1gm/kg, 836 ml free water. With flushes 250 ml q 6 hours provides 1836 ml free water/day. Weight has been stable at this time. Will recommend to continue current tube feeding rate. Monitoring tube feeding tolerance, weights, labs, plan of care. Following daily in ICU rounds, reassess Tuesdays and Fridays
[2023-07-12 13:54] LABS: Mycoplasma IgM Antibody Titer 151 U/mL (<770)
--- NOTE | 2023-07-12 16:21 | PM.IMPN ---
Progress Note: A&P Assessment and Plan (1) Acute and chronic respiratory failure: Qualifiers: Respiratory failure complication: hypoxia Qualified Code(s): J96.21 - Acute and chronic respiratory failure with hypoxia Code(s): J96.20 - Acute and chronic respiratory failure, unspecified whether with hypoxia or hypercapnia Status: Acute (2) Complication of tracheostomy tube: Code(s): J95.00 - Unspecified tracheostomy complication Status: Acute (3) Pneumonia: Qualifiers: Laterality: bilateral Lung location: unspecified part of lung Pneumonia type: due to unspecified organism Qualified Code(s): J18.9 - Pneumonia, unspecified organism Code(s): J18.9 - Pneumonia, unspecified organism Status: Acute (4) Mucus plugging of bronchi: Code(s): T17.500A - Unspecified foreign body in bronchus causing asphyxiation, initial encounter Status: Acute (5) UTI (urinary tract infection) due to urinary indwelling catheter: Code(s): T83.511A - Infection and inflammatory reaction due to indwelling urethral catheter, initial encounter; N39.0 - Urinary tract infection, site not specified Status: Acute Plan This is a 63-year-old black male with past medical history cerebrovascular accident with residual aphasia and dysphagia and tracheostomy/G-tube placement, COPD, esophageal diverticulum, gastroparesis, iron deficiency anemia, seizure disorder, vascular dementia and psychotic disturbance.? Patient resides in care home and reportedly the tracheostomy became dislodged and they were unable to replace it.? A 6.5 Shiley was placed in the ER and Luis Fernando.? The patient was admitted to medical floor and then subsequently desaturated and was transferred to ICU to be placed on mechanical ventilation.? Chest x-ray revealed a collapsed right lung likely due to mucus plugging and the patient has had increased secretions at the tracheostomy. On 07/12/2023 the patient is downgraded to IMU. He has now been weaned down to FiO2 25% and flow rate of 30 L. we will continue to wean this. Chest physiotherapy and bronchodilators have been continued. Mucomyst and Pulmozyme have been discontinued. Blood cultures are no growth to date. Urine cultures growing Pseudomonas resistant to imipenem and meropenem so meropenem was switched to Zosyn. Vancomycin discontinued on 07/12. Sputum culture growing Pseudomonas as well. As mentioned above, a 6.5 Shiley was placed by ER physician and there have been no complications. Continue to monitor for stability of airway secretions and tracheostomy. Continue suctioning as needed. As for the mucus plugging of the right side and lung collapse, this has improved greatly. FEN: Tube feeds. GI prophylaxis: Continue PPI DVT prophylaxis: Continue Lovenox 40 mg subQ daily Lines: Peripheral IV Code Status: Full code Dispo: Stable. Subjective Date/time seen: 07/12/23 16:21 Interval history: No acute overnight events. Patient does not elicit complaints and he shakes his head when asked if he has any pain. Review of Systems Review of Systems: All systems reviewed & are unremarkable except as noted in HPI and below (Subjective) Exam Const: General: comfortable and no acute distress Other: Frail. Follows commands. HENMT: Other: Tracheostomy in place. Eyes: Pupils: Equal, round and reactive pupils present Resp: Effort & Inspection: normal respiratory effort Auscultation: clear to auscultation bilaterally Cardio: Rate: regular rate Rhythm: regular rhythm GI: GI Palp: Yes Soft to palpation and No Tenderness to palpation present (GI) Extrem: General: no edema Other: Left AKA Objective Data Vital Signs Vital Signs: Vital Signs - 24 hr 07/11/23 18:00 07/11/23 18:00 07/11/23 20:12 Temperature 97.6 F Pulse Rate 92 91 82 Respiratory Rate 11 L Blood Pressure 138/81 Pulse Oximetry 100 Oxygen Delivery Oxygen F
[2023-07-12] MEDS: traMADol HCL (*CRX) 50 MG TABLET PO (18:36)
[2023-07-12] MEDS: CLOBAZAM 5 MG FEED TUBE (21:14)
[2023-07-12] MEDS: ATORVASTATIN 40 MG TABLET FEED TUBE (21:14)
[2023-07-13] VITALS (24 sets, daily range): BP systolic 118–171; BP diastolic 67–85; PULSE 73–109; RESP 12–26; TEMP 36.1–36.4; O2SAT 92–100
[2023-07-13] MEDS: guaiFENesin 200 MG/10 ML UDC 600 MG FEED TUBE ×4 (01:02→17:01)
[2023-07-13] MEDS: PIPERACILLIN/TAZ 4.5G/NS 100ML 4.5 GM/100 ML BAG IVPB ×4 (01:02→17:01)
[2023-07-13] MEDS: IPRATROPIUM 0.5 MG/ALBUTEROL SULFATE 2.5 MG AMPUL.NEB 3 ML INHALATION ×4 (01:54→21:40)
[2023-07-13 02:24] LABS: Legionella pneumophila Ag Ur Not Detected (Not Detected)
[2023-07-13] MEDS: LANSOPRAZOLE ODT 30 MG TAB.RAP.DR FEED TUBE (05:41)
[2023-07-13 05:58] LABS: Basophils Percent Auto 0.5 % (0.2-1.2); Eosinophils Absolute Auto 0.6 K/mm3 (0-0.3); Eosinophils Percent Auto 11.1 % (0-4.4); Hematocrit 32.8 % (42.0-52.0); Hemoglobin 10.5 g/dL (14.0-18.0); Immature Granulocyte Absolute 0.01 K/mm3 (0.00-0.031); Immature Granulocyte Percent A 0.2 % (0-0.5); Immature Platelet Fraction Pct 19.2 % (0.9-11.2); Lymphocytes Absolute Auto 2.47 K/mm3 (0.9-3.2); Lymphocytes Percent Auto 44.9 % (18.3-44.2); Mean Corpuscular Hemoglobin 32.8 pg (26-34); Mean Corpuscular Volume 102.5 fl (80-100); Mean Platelet Volume 13.3 fl (7.4-10.4); Monocytes Absolute Auto 0.5 K/mm3 (0.1-0.6); Monocytes Percent Auto 8.7 % (2.6-8.5); Neutrophils Absolute Auto 1.9 K/mm3 (1.3-6.7); Neutrophils Percent Auto 34.6 % (45.5-73.1); Platelet Count Result 80 k/mm3 (150-375); Red Cell Distribution Width 14.9 % (11.5-14.5); White Blood Count 5.5 K/mm3 (4.5-10.0)
[2023-07-13 06:15] LABS: Alanine Aminotransferase 14 U/L (6-50); Albumin Level 3.1 g/dL (3.5-5.1); Alkaline Phosphatase 90 U/L (38-126); Anion Gap 3 mmol/L (8-16); Aspartate Amino Transferase 23 U/L (17-59); Bilirubin,Total 0.4 mg/dL (0.2-1.3); Blood Urea Nitrogen 7 mg/dL (9-20); Calcium 9.1 mg/dL (8.4-10.2); Carbon Dioxide 29 mmol/L (22-30); Chloride 107 mmol/L (98-107); Estimated CRCL calculation 132 ml/min; Estimated Glomerular Filt Rate > 60; Glucose 112 mg/dL (65-110); Phosphorus 3.4 mg/dL (2.5-4.5); Potassium 4.1 mmol/L (3.4-5.0); Sodium 139 mmol/L (137-145)
[2023-07-13] MEDS: FAMOTIDINE 20 MG TABLET FEED TUBE ×2 (09:44→22:01)
[2023-07-13] MEDS: METOPROLOL TARTRATE 25 MG TABLET FEED TUBE ×2 (09:44→22:00)
[2023-07-13] MEDS: THIAMINE HCL 100 MG TABLET FEED TUBE (09:44)
[2023-07-13] MEDS: traMADol HCL (*CRX) 50 MG TABLET PO (09:45)
[2023-07-13] MEDS: LACOSAMIDE (*CRX) 200 MG TABLET FEED TUBE ×2 (09:45→21:59)
[2023-07-13] MEDS: FOLIC ACID 1 MG TABLET FEED TUBE (09:45)
[2023-07-13] MEDS: cloBAZam (*CRX) 10 MG TABLET FEED TUBE ×2 (09:45→22:00)
[2023-07-13] MEDS: ASPIRIN 81 MG CHEWABLE TABLET FEED TUBE (09:45)
[2023-07-13] MEDS: VALPROIC ACID LIQ 250 MG/5 ML ORAL SOLUTION UDC 500 MG PO ×4 (09:46→22:01)
[2023-07-13] MEDS: MUPIROCIN 2% OINT 22 GM TUBE 1 APPLIC EACH NARE ×2 (09:47→22:02)
[2023-07-13] MEDS: polyethylene glycoL 3350 17 GM POWD.PACK FEED TUBE ×2 (09:51→22:00)
[2023-07-13] MEDS: levETIRAcetam ORAL SOL 500 MG/5 ML UDC 2000 MG FEED TUBE ×2 (09:56→21:58)
[2023-07-13] MEDS: CENTRAL LINE FLUSH 10 ML IV PUSH ×3 (14:10→22:01)
--- NOTE | 2023-07-13 15:20 | PM.IMPN ---
Progress Note: A&P Assessment and Plan (1) Acute and chronic respiratory failure: Qualifiers: Respiratory failure complication: hypoxia Qualified Code(s): J96.21 - Acute and chronic respiratory failure with hypoxia Code(s): J96.20 - Acute and chronic respiratory failure, unspecified whether with hypoxia or hypercapnia Status: Acute (2) Complication of tracheostomy tube: Code(s): J95.00 - Unspecified tracheostomy complication Status: Acute (3) Pneumonia: Qualifiers: Laterality: bilateral Lung location: unspecified part of lung Pneumonia type: due to unspecified organism Qualified Code(s): J18.9 - Pneumonia, unspecified organism Code(s): J18.9 - Pneumonia, unspecified organism Status: Acute (4) Mucus plugging of bronchi: Code(s): T17.500A - Unspecified foreign body in bronchus causing asphyxiation, initial encounter Status: Acute (5) UTI (urinary tract infection) due to urinary indwelling catheter: Code(s): T83.511A - Infection and inflammatory reaction due to indwelling urethral catheter, initial encounter; N39.0 - Urinary tract infection, site not specified Status: Acute (6) Thrombocytopenia: Code(s): D69.6 - Thrombocytopenia, unspecified Status: Acute Plan This is a 63-year-old black male with past medical history cerebrovascular accident with residual aphasia and dysphagia and tracheostomy/G-tube placement, COPD, esophageal diverticulum, gastroparesis, iron deficiency anemia, seizure disorder, vascular dementia and psychotic disturbance.? Patient resides [facility] [place] [facility] and reportedly the tracheostomy became dislodged and they were unable to replace it.? A 6.5 Shiley was placed in the ER and Luis Fernando.? The patient was admitted to medical floor and then subsequently desaturated and was transferred to ICU to be placed on mechanical ventilation.? Chest x-ray revealed a collapsed right lung likely due to mucus plugging and the patient has had increased secretions at the tracheostomy. On 07/12/2023 the patient is downgraded to IMU. He has now been weaned down to FiO2 25% and flow rate of 30 L. we will continue to wean this. Chest physiotherapy and bronchodilators have been continued. Mucomyst and Pulmozyme have been discontinued. Blood cultures are no growth to date. Urine cultures growing Pseudomonas resistant to imipenem and meropenem so meropenem was switched to Zosyn. Vancomycin discontinued on 07/12. Sputum culture growing Pseudomonas as well. As mentioned above, a 6.5 Shiley was placed by ER physician and there have been no complications. Continue to monitor for stability of airway secretions and tracheostomy. Continue suctioning as needed. As for the mucus plugging of the right side and lung collapse, this has improved greatly. 07/13/23: Pseudomonas in the sputum (light growth) essentially hanna-resistant. CXR reviewed showing ?minimal edema but no findings concerning for PNA. 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 Lung collapse has resolved and felt related to mucous plugging. Low plt noted but has been seen in the past. Lovenox stopped. Pseudomonas UTI being treated with Zosyn. WBC normal now. Continue current treatment plan. Care coordination informed that the patient cannot go back to his NH now. Spoke with his sister and she was informed about the need to find a new location. She will call the ID and discuss with them about options. Will continue to look for anothe facility. FEN: Tube feeds. GI prophylaxis: Continue PPI DVT prophylaxis: Continue Lovenox 40 mg subQ daily Lines: Peripheral IV Code Status: Full code Dispo: Stable. Subjective Date/time seen: 07/13/23 15:20 Interval history: 63yo male with hx of CVA s/p trach and PEG and chronic respiratory failure here for trach malfunction. Assuming care. Chart reviewed. Pt unable to provide hx. Received a call from the chief medical technologist of the [place] [facility] that the patient res
[2023-07-13] MEDS: ATORVASTATIN 40 MG TABLET FEED TUBE (21:59)
[2023-07-13] MEDS: CLOBAZAM 5 MG FEED TUBE (22:00)
[2023-07-14] VITALS (17 sets, daily range): BP systolic 120–143; BP diastolic 67–87; PULSE 74–107; RESP 18–24; TEMP 36.2–36.4; O2SAT 91–100
[2023-07-14] MEDS: guaiFENesin 200 MG/10 ML UDC 600 MG FEED TUBE ×5 (00:33→23:54)
[2023-07-14] MEDS: PIPERACILLIN/TAZ 4.5G/NS 100ML 4.5 GM/100 ML BAG IVPB ×5 (00:33→23:54)
[2023-07-14] MEDS: IPRATROPIUM 0.5 MG/ALBUTEROL SULFATE 2.5 MG AMPUL.NEB 3 ML INHALATION ×4 (02:02→21:30)
[2023-07-14 06:21] LABS: Basophils Percent Auto 0.4 % (0.2-1.2); Eosinophils Absolute Auto 0.7 K/mm3 (0-0.3); Hematocrit 34.6 % (42.0-52.0); Hemoglobin 10.8 g/dL (14.0-18.0); Immature Granulocyte Absolute 0.01 K/mm3 (0.00-0.031); Immature Granulocyte Percent A 0.2 % (0-0.5); Immature Platelet Fraction Pct 17.1 % (0.9-11.2); Lymphocytes Absolute Auto 2.15 K/mm3 (0.9-3.2); Lymphocytes Percent Auto 39.2 % (18.3-44.2); Mean Corpuscular HGB Conc 31.2 g/dl (32-36); Mean Corpuscular Hemoglobin 32.2 pg (26-34); Mean Corpuscular Volume 103.3 fl (80-100); Mean Platelet Volume 12.5 fl (7.4-10.4); Monocytes Absolute Auto 0.6 K/mm3 (0.1-0.6); Monocytes Percent Auto 10.9 % (2.6-8.5); Neutrophils Percent Auto 37.3 % (45.5-73.1); Platelet Count Result 70 k/mm3 (150-375); Red Blood Count 3.35 M/mm3 (4.6-6.20); Red Cell Distribution Width 14.7 % (11.5-14.5); White Blood Count 5.5 K/mm3 (4.5-10.0)
[2023-07-14 06:32] LABS: Alanine Aminotransferase 15 U/L (6-50); Alkaline Phosphatase 91 U/L (38-126); Anion Gap 3 mmol/L (8-16); Aspartate Amino Transferase 24 U/L (17-59); Bilirubin,Total 0.3 mg/dL (0.2-1.3); Blood Urea Nitrogen 9 mg/dL (9-20); Carbon Dioxide 29 mmol/L (22-30); Chloride 105 mmol/L (98-107); Estimated CRCL calculation 132 ml/min; Estimated Glomerular Filt Rate > 60; Glucose 96 mg/dL (65-110); Phosphorus 3.5 mg/dL (2.5-4.5); Sodium 137 mmol/L (137-145)
[2023-07-14] MEDS: CENTRAL LINE FLUSH 10 ML IV PUSH ×3 (06:33→20:49)
[2023-07-14] MEDS: LANSOPRAZOLE ODT 30 MG TAB.RAP.DR FEED TUBE (06:33)
[2023-07-14] MEDS: cloBAZam (*CRX) 10 MG TABLET FEED TUBE ×2 (08:59→20:47)
[2023-07-14] MEDS: FOLIC ACID 1 MG TABLET FEED TUBE (08:59)
[2023-07-14] MEDS: ASPIRIN 81 MG CHEWABLE TABLET FEED TUBE (08:59)
[2023-07-14] MEDS: THIAMINE HCL 100 MG TABLET FEED TUBE (08:59)
[2023-07-14] MEDS: METOPROLOL TARTRATE 25 MG TABLET FEED TUBE ×2 (08:59→20:48)
[2023-07-14] MEDS: LACOSAMIDE (*CRX) 200 MG TABLET FEED TUBE ×2 (08:59→20:47)
[2023-07-14] MEDS: polyethylene glycoL 3350 17 GM POWD.PACK FEED TUBE (09:00)
[2023-07-14] MEDS: levETIRAcetam ORAL SOL 500 MG/5 ML UDC 2000 MG FEED TUBE ×2 (09:00→20:48)
[2023-07-14] MEDS: VALPROIC ACID LIQ 250 MG/5 ML ORAL SOLUTION UDC 500 MG PO ×4 (09:00→20:48)
[2023-07-14] MEDS: MUPIROCIN 2% OINT 22 GM TUBE 1 APPLIC EACH NARE ×2 (09:01→20:48)
[2023-07-14] MEDS: FAMOTIDINE 20 MG TABLET FEED TUBE ×2 (13:18→20:49)
--- NOTE | 2023-07-14 14:48 | PM.IMPN ---
Progress Note: A&P Assessment and Plan (1) Acute and chronic respiratory failure: Qualifiers: Respiratory failure complication: hypoxia Qualified Code(s): J96.21 - Acute and chronic respiratory failure with hypoxia Code(s): J96.20 - Acute and chronic respiratory failure, unspecified whether with hypoxia or hypercapnia Status: Acute (2) Complication of tracheostomy tube: Code(s): J95.00 - Unspecified tracheostomy complication Status: Acute (3) Pneumonia: Qualifiers: Laterality: bilateral Lung location: unspecified part of lung Pneumonia type: due to unspecified organism Qualified Code(s): J18.9 - Pneumonia, unspecified organism Code(s): J18.9 - Pneumonia, unspecified organism Status: Acute (4) Mucus plugging of bronchi: Code(s): T17.500A - Unspecified foreign body in bronchus causing asphyxiation, initial encounter Status: Acute (5) UTI (urinary tract infection) due to urinary indwelling catheter: Code(s): T83.511A - Infection and inflammatory reaction due to indwelling urethral catheter, initial encounter; N39.0 - Urinary tract infection, site not specified Status: Acute (6) Thrombocytopenia: Code(s): D69.6 - Thrombocytopenia, unspecified Status: Acute Plan This is a 63-year-old black male with past medical history cerebrovascular accident with residual aphasia and dysphagia and tracheostomy/G-tube placement, COPD, esophageal diverticulum, gastroparesis, iron deficiency anemia, seizure disorder, vascular dementia and psychotic disturbance.? [facility] and [facility] the [facility]ostomy became dislodged and they were unable to replace it.? A 6.5 Shiley was placed in the ER and Luis Fernando.? The patient was admitted to medical floor and then subsequently desaturated and was transferred to ICU to be placed on mechanical ventilation.? Chest x-ray revealed a collapsed right lung likely due to mucus plugging and the patient has had increased secretions at the tracheostomy. 07/12/23: the patient is downgraded to IMU. He has now been weaned down to FiO2 25% and flow rate of 30 L. we will continue to wean this. Chest physiotherapy and bronchodilators have been continued. Mucomyst and Pulmozyme have been discontinued. Blood cultures are no growth to date. Urine cultures growing Pseudomonas resistant to imipenem and meropenem so meropenem was switched to Zosyn. Vancomycin discontinued on 07/12. Sputum culture growing Pseudomonas as well. As mentioned above, a 6.5 Shiley was placed by ER physician and there have been no complications. Continue to monitor for stability of airway secretions and tracheostomy. Continue suctioning as needed. As for the mucus plugging of the right side and lung collapse, this has improved greatly. 07/13/23: Pseudomonas in the sputum (light growth) essentially hanna-resistant. CXR reviewed showing ?minimal edema but no findings concerning for PNA. 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 Lung collapse has resolved and felt related to mucous plugging. Low plt noted but has been seen in the past. Lovenox stopped. Pseudomonas UTI being treated with Zosyn. WBC normal now. Continue current treatment plan. Care coordination informed that the patient cannot go back to his NH now. Spoke with his sister and she was informed about the need to find a new location. She will call the NH and discuss with them about options. Will continue to look for anothe facility. 07/14/23: No change in plan of care. Continue Zosyn for pseudomonas UTI through 07/18. Plt count down again to 70K. Off Lovenox. Follow. Placement being arranged. Okay to move to medical floor. DVT prophylaxis: SCDs Code Status: Full code Subjective Date/time seen: 07/14/23 14:48 Interval history: 63yo male with hx of CVA s/p trach and PEG and chronic respiratory failure here for trach malfunction. Pt unable to provide hx. No issue overnight. Review of Sy
[2023-07-14] MEDS: ATORVASTATIN 40 MG TABLET FEED TUBE (20:47)
[2023-07-14] MEDS: CLOBAZAM 5 MG FEED TUBE (20:47)
[2023-07-15] VITALS (18 sets, daily range): BP systolic 113–144; BP diastolic 74–86; PULSE 74–100; RESP 16–20; TEMP 36.2–36.8; O2SAT 95–100
[2023-07-15] MEDS: IPRATROPIUM 0.5 MG/ALBUTEROL SULFATE 2.5 MG AMPUL.NEB 3 ML INHALATION ×4 (02:02→20:57)
[2023-07-15] MEDS: CENTRAL LINE FLUSH 10 ML IV PUSH ×3 (05:52→20:55)
[2023-07-15 06:38] LABS: Hematocrit 35.9 % (42.0-52.0); Hemoglobin 11.3 g/dL (14.0-18.0); Immature Platelet Fraction Pct 9.6 % (0.9-11.2); Mean Corpuscular HGB Conc 31.5 g/dl (32-36); Mean Corpuscular Hemoglobin 32.8 pg (26-34); Mean Corpuscular Volume 104.4 fl (80-100); Mean Platelet Volume 13.1 fl (7.4-10.4); Platelet Count Result 79 k/mm3 (150-375); Red Blood Count 3.44 M/mm3 (4.6-6.20); Red Cell Distribution Width 14.7 % (11.5-14.5); White Blood Count 6.4 K/mm3 (4.5-10.0)
[2023-07-15 06:45] LABS: Anion Gap 5 mmol/L (8-16); Blood Urea Nitrogen 10 mg/dL (9-20); Calcium 9.1 mg/dL (8.4-10.2); Carbon Dioxide 25 mmol/L (22-30); Chloride 108 mmol/L (98-107); Estimated CRCL calculation 132 ml/min; Estimated Glomerular Filt Rate > 60; Glucose 120 mg/dL (65-110); Potassium 4.2 mmol/L (3.4-5.0); Sodium 138 mmol/L (137-145)
[2023-07-15] MEDS: guaiFENesin 200 MG/10 ML UDC 600 MG FEED TUBE ×2 (06:52→17:49)
[2023-07-15] MEDS: LANSOPRAZOLE ODT 30 MG TAB.RAP.DR FEED TUBE (06:52)
[2023-07-15] MEDS: PIPERACILLIN/TAZ 4.5G/NS 100ML 4.5 GM/100 ML BAG IVPB (06:52)
[2023-07-15] MEDS: levETIRAcetam ORAL SOL 500 MG/5 ML UDC 2000 MG FEED TUBE ×2 (09:53→20:50)
[2023-07-15] MEDS: VALPROIC ACID LIQ 250 MG/5 ML ORAL SOLUTION UDC 500 MG PO ×3 (09:54→20:51)
[2023-07-15] MEDS: ASPIRIN 81 MG CHEWABLE TABLET FEED TUBE (09:55)
[2023-07-15] MEDS: cloBAZam (*CRX) 10 MG TABLET FEED TUBE ×2 (09:55→20:50)
[2023-07-15] MEDS: THIAMINE HCL 100 MG TABLET FEED TUBE (09:57)
[2023-07-15] MEDS: METOPROLOL TARTRATE 25 MG TABLET FEED TUBE ×2 (09:57→20:50)
[2023-07-15] MEDS: FAMOTIDINE 20 MG TABLET FEED TUBE ×2 (09:58→20:50)
[2023-07-15] MEDS: FOLIC ACID 1 MG TABLET FEED TUBE (09:58)
[2023-07-15] MEDS: LACOSAMIDE (*CRX) 200 MG TABLET FEED TUBE ×2 (09:58→20:50)
[2023-07-15] MEDS: MUPIROCIN 2% OINT 22 GM TUBE 1 APPLIC EACH NARE ×2 (09:59→20:52)
[2023-07-15] MEDS: polyethylene glycoL 3350 17 GM POWD.PACK FEED TUBE ×2 (09:59→20:51)
--- NOTE | 2023-07-15 10:53 | PCNFU ---
Nutrition Follow-Up Complete: Inadequate energy intake related to NPO status, need for PEG tube as evidenced by need for full tube feeding Meet estimated protein energy needs - Progressing Tolerate tube feeding at goal rate - Goal being met. COntinue with same goals Goal: Pt current nutrition is Jevity 1.5 @ goal rate 50 ml/h with flushes 250 ml q 6 hours. Nutrition recommendation: Continue with current tube feeding rate and flushes. May want to increase rate to 55 ml/h to meet more of protein energy needs Last recorded weight is 73 kg. Bowel Motility: +2 BMs 07/15/23 Labs Reviewed: Hgb 11.3, Hct 35.9, Cre 0.4, Glu 120 Meds Noted: Zosyn, thiamine, Keppra, lopressor, miralax Skin: No pressure Additional Notes: tolerating tube feedings for 1650 kcal, 70 g protein, 836 ml free water + 250 flushes q 6 hours for total waster 1836 ml/day. Monitoring tube feeding tolerance, weights, labs, plan of care. Following daily in ICU rounds, reassess Tuesdays and Fridays
--- NOTE | 2023-07-15 11:21 | PC.NURSE ---
This patient, Bi Tabor, was transferred to [facility] via bed without issues on 07/15/23 at 1115. Personal belongings sent with patient. Report given to ALFRED Quiñones. Appropriate documentation sent with patient.
--- NOTE | 2023-07-15 11:29 | PC.NURSE ---
This patient, Bi Tabor, was received from [IMU ] on 07/15/23 at 1129. Patient/family oriented to unit policies and routines
--- NOTE | 2023-07-15 11:42 | PM.IMPN ---
Progress Note: A&P Assessment and Plan (1) Acute and chronic respiratory failure: Qualifiers: Respiratory failure complication: hypoxia Qualified Code(s): J96.21 - Acute and chronic respiratory failure with hypoxia Code(s): J96.20 - Acute and chronic respiratory failure, unspecified whether with hypoxia or hypercapnia Status: Acute (2) Complication of tracheostomy tube: Code(s): J95.00 - Unspecified tracheostomy complication Status: Acute (3) Mucus plugging of bronchi: Code(s): T17.500A - Unspecified foreign body in bronchus causing asphyxiation, initial encounter Status: Acute (4) UTI (urinary tract infection) due to urinary indwelling catheter: Code(s): T83.511A - Infection and inflammatory reaction due to indwelling urethral catheter, initial encounter; N39.0 - Urinary tract infection, site not specified Status: Acute (5) Thrombocytopenia: Code(s): D69.6 - Thrombocytopenia, unspecified Status: Acute Plan This is a 63-year-old black male with past medical history cerebrovascular accident with residual aphasia and dysphagia and tracheostomy/G-tube placement, COPD, esophageal diverticulum, gastroparesis, iron deficiency anemia, seizure disorder, vascular dementia and psychotic disturbance.? Patient resides in long-term and reportedly the tracheostomy became dislodged and they were unable to replace it.? A 6.5 Shiley was placed in the ER and [facility].? The patient was admitted to medical floor and then subsequently desaturated and was transferred to ICU to be placed on mechanical ventilation.? Chest x-ray revealed a collapsed right lung likely due to mucus plugging and the patient has had increased secretions at the tracheostomy. 07/12/23: the patient is downgraded to IMU. He has now been weaned down to FiO2 25% and flow rate of 30 L. we will continue to wean this. Chest physiotherapy and bronchodilators have been continued. Mucomyst and Pulmozyme have been discontinued. Blood cultures are no growth to date. Urine cultures growing Pseudomonas resistant to imipenem and meropenem so meropenem was switched to Zosyn. Vancomycin discontinued on 07/12. Sputum culture growing Pseudomonas as well. As mentioned above, a 6.5 Shiley was placed by ER physician and there have been no complications. Continue to monitor for stability of airway secretions and tracheostomy. Continue suctioning as needed. As for the mucus plugging of the right side and lung collapse, this has improved greatly. 07/13/23: Pseudomonas in the sputum (light growth) essentially hanna-resistant. CXR reviewed showing ?minimal edema but no findings concerning for PNA. 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 Lung collapse has resolved and felt related to mucous plugging. Low plt noted but has been seen in the past. Lovenox stopped. Pseudomonas UTI being treated with Zosyn. WBC normal now. Continue current treatment plan. Care coordination informed that the patient cannot go back to his NH now. Spoke with his sister and she was informed about the need to find a new location. She will call the [facility] and discuss with them about options. Will continue to look for anothe facility. 07/14/23: No change in plan of care. Continue Zosyn for pseudomonas UTI through 07/18. Plt count down again to 70K. Off Lovenox. Follow. Placement being arranged. Okay to move to medical floor. 07/15/23: Patient doing well. Remains in restraints at times due to him pulling out his trach. Plt count better. Sputum growing pseudomonas but felt more likely colonization. Sputum mostly white in color and thick since admission (was green-yellow yesterday but better today). Continue frequent suctioning as needed. Try mucomyst. Change Zosyn to levaquin. Continue current care plan otherwise. Monitor abd wall finding. Suspect mostly muscular. DVT prophylaxis: SCDs Code Status: Full code Subjective Date/time seen: 07/15/23 11:42 Interval history: 63yo male wi
--- NOTE | 2023-07-15 12:11 | PC.NURSE ---
Sister, Adriane, updated on patient transfer to room 246
[2023-07-15] MEDS: ACETYLCYSTEINE 20% INHAL SOLN 800 MG/4 ML VIAL 200 MG INHALATION ×2 (14:52→20:57)
[2023-07-15] MEDS: levoFLOXacin 750 MG TABLET FEED TUBE (17:49)
[2023-07-15] MEDS: ATORVASTATIN 40 MG TABLET FEED TUBE (20:50)
[2023-07-15] MEDS: CLOBAZAM 5 MG FEED TUBE (20:50)
[2023-07-16] VITALS (12 sets, daily range): BP systolic 144–149; BP diastolic 80–81; PULSE 75–83; RESP 18–20; TEMP 36.3–36.5; O2SAT 96–99
[2023-07-16] MEDS: guaiFENesin 200 MG/10 ML UDC 600 MG FEED TUBE ×4 (01:04→16:58)
[2023-07-16] MEDS: ACETYLCYSTEINE 20% INHAL SOLN 800 MG/4 ML VIAL 200 MG INHALATION ×4 (02:28→20:47)
[2023-07-16] MEDS: IPRATROPIUM 0.5 MG/ALBUTEROL SULFATE 2.5 MG AMPUL.NEB 3 ML INHALATION ×4 (02:28→20:47)
[2023-07-16] MEDS: CENTRAL LINE FLUSH 10 ML IV PUSH ×3 (06:48→22:11)
[2023-07-16] MEDS: LANSOPRAZOLE ODT 30 MG TAB.RAP.DR FEED TUBE (06:48)
[2023-07-16] MEDS: polyethylene glycoL 3350 17 GM POWD.PACK FEED TUBE (08:51)
[2023-07-16] MEDS: cloBAZam (*CRX) 10 MG TABLET FEED TUBE ×2 (08:51→22:11)
[2023-07-16] MEDS: LACOSAMIDE (*CRX) 200 MG TABLET FEED TUBE ×2 (08:51→22:10)
[2023-07-16] MEDS: FAMOTIDINE 20 MG TABLET FEED TUBE (08:51)
[2023-07-16] MEDS: ASPIRIN 81 MG CHEWABLE TABLET FEED TUBE (08:51)
[2023-07-16] MEDS: levoFLOXacin 750 MG TABLET FEED TUBE (08:51)
[2023-07-16] MEDS: METOPROLOL TARTRATE 25 MG TABLET FEED TUBE ×2 (08:51→22:10)
[2023-07-16] MEDS: FOLIC ACID 1 MG TABLET FEED TUBE (08:52)
[2023-07-16] MEDS: MUPIROCIN 2% OINT 22 GM TUBE 1 APPLIC EACH NARE ×2 (08:52→22:11)
[2023-07-16] MEDS: THIAMINE HCL 100 MG TABLET FEED TUBE (08:52)
[2023-07-16] MEDS: VALPROIC ACID LIQ 250 MG/5 ML ORAL SOLUTION UDC 500 MG PO ×4 (08:52→22:09)
[2023-07-16] MEDS: levETIRAcetam ORAL SOL 500 MG/5 ML UDC 2000 MG FEED TUBE ×2 (08:59→22:08)
--- NOTE | 2023-07-16 13:11 | PM.IMPN ---
Progress Note: A&P Assessment and Plan (1) Acute and chronic respiratory failure: Qualifiers: Respiratory failure complication: hypoxia Qualified Code(s): J96.21 - Acute and chronic respiratory failure with hypoxia Code(s): J96.20 - Acute and chronic respiratory failure, unspecified whether with hypoxia or hypercapnia Status: Acute (2) Complication of tracheostomy tube: Code(s): J95.00 - Unspecified tracheostomy complication Status: Acute (3) Mucus plugging of bronchi: Code(s): T17.500A - Unspecified foreign body in bronchus causing asphyxiation, initial encounter Status: Acute (4) UTI (urinary tract infection) due to urinary indwelling catheter: Code(s): T83.511A - Infection and inflammatory reaction due to indwelling urethral catheter, initial encounter; N39.0 - Urinary tract infection, site not specified Status: Acute (5) Thrombocytopenia: Code(s): D69.6 - Thrombocytopenia, unspecified Status: Acute Plan This is a 63-year-old black male with past medical history cerebrovascular accident with residual aphasia and dysphagia and tracheostomy/G-tube placement, COPD, esophageal diverticulum, gastroparesis, iron deficiency anemia, seizure disorder, vascular dementia and psychotic disturbance.? Patient resides in long-term and reportedly the tracheostomy became dislodged and they were unable to replace it.? A 6.5 Shiley was placed in the ER and [facility].? The patient was admitted to medical floor and then subsequently desaturated and was transferred to ICU to be placed on mechanical ventilation.? Chest x-ray revealed a collapsed right lung likely due to mucus plugging and the patient has had increased secretions at the tracheostomy. 07/12/23: the patient is downgraded to IMU. He has now been weaned down to FiO2 25% and flow rate of 30 L. we will continue to wean this. Chest physiotherapy and bronchodilators have been continued. Mucomyst and Pulmozyme have been discontinued. Blood cultures are no growth to date. Urine cultures growing Pseudomonas resistant to imipenem and meropenem so meropenem was switched to Zosyn. Vancomycin discontinued on 07/12. Sputum culture growing Pseudomonas as well. As mentioned above, a 6.5 Shiley was placed by ER physician and there have been no complications. Continue to monitor for stability of airway secretions and tracheostomy. Continue suctioning as needed. As for the mucus plugging of the right side and lung collapse, this has improved greatly. 07/13/23: Pseudomonas in the sputum (light growth) essentially hanna-resistant. CXR reviewed showing ?minimal edema but no findings concerning for PNA. 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 Lung collapse has resolved and felt related to mucous plugging. Low plt noted but has been seen in the past. Lovenox stopped. Pseudomonas UTI being treated with Zosyn. WBC normal now. Continue current treatment plan. Care coordination informed that the patient cannot go back to his NH now. Spoke with his sister and she was informed about the need to find a new location. She will call the [facility] and discuss with them about options. Will continue to look for anothe facility. 07/14/23: No change in plan of care. Continue Zosyn for pseudomonas UTI through 07/18. Plt count down again to 70K. Off Lovenox. Follow. Placement being arranged. Okay to move to medical floor. 07/15/23: Patient doing well. Remains in restraints at times due to him pulling out his trach. Plt count better. Sputum growing pseudomonas but felt more likely colonization. Sputum mostly white in color and thick since admission (was green-yellow yesterday but better today). Continue frequent suctioning as needed. Try mucomyst. Change Zosyn to levaquin. Continue current care plan otherwise. Monitor abd wall finding. Suspect mostly muscular. 07/16/23: No issues overnight. He sounds better since changing to levaquin. Levaquin was intermediat (JELLY 2) Pseudomonas in sputum so aramis
[2023-07-16] MEDS: CLOBAZAM 5 MG FEED TUBE (22:11)
[2023-07-16] MEDS: ATORVASTATIN 40 MG TABLET FEED TUBE (22:11)
[2023-07-17] VITALS (18 sets, daily range): BP systolic 137–147; BP diastolic 74–81; PULSE 68–86; RESP 16–20; TEMP 36.1–36.9; O2SAT 98–100
[2023-07-17] MEDS: guaiFENesin 200 MG/10 ML UDC 600 MG FEED TUBE ×4 (01:10→17:14)
[2023-07-17] MEDS: ACETYLCYSTEINE 20% INHAL SOLN 800 MG/4 ML VIAL 200 MG INHALATION ×4 (03:03→20:27)
[2023-07-17] MEDS: IPRATROPIUM 0.5 MG/ALBUTEROL SULFATE 2.5 MG AMPUL.NEB 3 ML INHALATION ×4 (03:03→20:27)
[2023-07-17] MEDS: CENTRAL LINE FLUSH 10 ML IV PUSH ×3 (06:59→22:20)
[2023-07-17] MEDS: LANSOPRAZOLE ODT 30 MG TAB.RAP.DR FEED TUBE (06:59)
[2023-07-17 07:14] LABS: Estimated CRCL calculation 130 ml/min; Estimated Glomerular Filt Rate > 60
[2023-07-17] MEDS: LACOSAMIDE (*CRX) 200 MG TABLET FEED TUBE ×2 (08:34→21:19)
[2023-07-17] MEDS: VALPROIC ACID LIQ 250 MG/5 ML ORAL SOLUTION UDC 500 MG PO ×4 (08:34→21:19)
[2023-07-17] MEDS: THIAMINE HCL 100 MG TABLET FEED TUBE (08:35)
[2023-07-17] MEDS: FAMOTIDINE 20 MG TABLET FEED TUBE (08:35)
[2023-07-17] MEDS: levETIRAcetam ORAL SOL 500 MG/5 ML UDC 2000 MG FEED TUBE ×2 (08:35→21:19)
[2023-07-17] MEDS: ASPIRIN 81 MG CHEWABLE TABLET FEED TUBE (08:35)
[2023-07-17] MEDS: polyethylene glycoL 3350 17 GM POWD.PACK FEED TUBE ×2 (08:35→21:10)
[2023-07-17] MEDS: cloBAZam (*CRX) 10 MG TABLET FEED TUBE ×2 (08:35→21:10)
[2023-07-17] MEDS: FOLIC ACID 1 MG TABLET FEED TUBE (08:35)
[2023-07-17] MEDS: METOPROLOL TARTRATE 25 MG TABLET FEED TUBE ×2 (08:35→21:10)
[2023-07-17] MEDS: levoFLOXacin 750 MG TABLET FEED TUBE (08:35)
[2023-07-17] MEDS: MUPIROCIN 2% OINT 22 GM TUBE 1 APPLIC EACH NARE ×2 (08:36→21:10)
--- NOTE | 2023-07-17 09:50 | PM.IMPN ---
Progress Note: A&P Assessment and Plan (1) Acute and chronic respiratory failure: Qualifiers: Respiratory failure complication: hypoxia Qualified Code(s): J96.21 - Acute and chronic respiratory failure with hypoxia Code(s): J96.20 - Acute and chronic respiratory failure, unspecified whether with hypoxia or hypercapnia Status: Acute (2) Complication of tracheostomy tube: Code(s): J95.00 - Unspecified tracheostomy complication Status: Acute (3) Mucus plugging of bronchi: Code(s): T17.500A - Unspecified foreign body in bronchus causing asphyxiation, initial encounter Status: Acute (4) UTI (urinary tract infection) due to urinary indwelling catheter: Code(s): T83.511A - Infection and inflammatory reaction due to indwelling urethral catheter, initial encounter; N39.0 - Urinary tract infection, site not specified Status: Acute (5) Thrombocytopenia: Code(s): D69.6 - Thrombocytopenia, unspecified Status: Acute Plan This is a 63-year-old black male with past medical history cerebrovascular accident with residual aphasia and dysphagia and tracheostomy/G-tube placement, COPD, esophageal diverticulum, gastroparesis, iron deficiency anemia, seizure disorder, vascular dementia and psychotic disturbance.? [facility] and reportedly the tracheostomy became dislodged and they were unable to replace it.? A 6.5 Shiley was placed in the ER and [facility].? The patient was admitted to medical floor and then subsequently desaturated and was transferred to ICU to be placed on mechanical ventilation.? Chest x-ray revealed a collapsed right lung likely due to mucus plugging and the patient has had increased secretions at the tracheostomy. 07/12/23: the patient is downgraded to IMU. He has now been weaned down to FiO2 25% and flow rate of 30 L. we will continue to wean this. Chest physiotherapy and bronchodilators have been continued. Mucomyst and Pulmozyme have been discontinued. Blood cultures are no growth to date. Urine cultures growing Pseudomonas resistant to imipenem and meropenem so meropenem was switched to Zosyn. Vancomycin discontinued on 07/12. Sputum culture growing Pseudomonas as well. As mentioned above, a 6.5 Shiley was placed by ER physician and there have been no complications. Continue to monitor for stability of airway secretions and tracheostomy. Continue suctioning as needed. As for the mucus plugging of the right side and lung collapse, this has improved greatly. 07/13/23: Pseudomonas in the sputum (light growth) essentially hanna-resistant. CXR reviewed showing ?minimal edema but no findings concerning for PNA. 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 Lung collapse has resolved and felt related to mucous plugging. Low plt noted but has been seen in the past. Lovenox stopped. Pseudomonas UTI being treated with Zosyn. WBC normal now. Continue current treatment plan. Care coordination informed that the patient cannot go back to his NH now. Spoke with his sister and she was informed about the need to find a new location. She will call the [facility] and discuss with them about options. Will continue to look for anothe facility. 07/14/23: No change in plan of care. Continue Zosyn for pseudomonas UTI through 07/18. Plt count down again to 70K. Off Lovenox. Follow. Placement being arranged. Okay to move to medical floor. 07/15/23: Patient doing well. Remains in restraints at times due to him pulling out his trach. Plt count better. Sputum growing pseudomonas but felt more likely colonization. Sputum mostly white in color and thick since admission (was green-yellow yesterday but better today). Continue frequent suctioning as needed. Try mucomyst. Change Zosyn to levaquin. Continue current care plan otherwise. Monitor abd wall finding. Suspect mostly muscular. 07/16/23: No issues overnight. He sounds better since changing to levaquin. Levaquin was intermediate (JELLY 2) Pseudomonas in sputum so m
[2023-07-17] MEDS: ATORVASTATIN 40 MG TABLET FEED TUBE (21:10)
[2023-07-17] MEDS: CLOBAZAM 5 MG FEED TUBE (21:10)
[2023-07-18] VITALS (15 sets, daily range): BP systolic 117–144; BP diastolic 70–78; PULSE 70–93; RESP 6–20; TEMP 36.7–37.2; O2SAT 97–98
[2023-07-18] MEDS: IPRATROPIUM 0.5 MG/ALBUTEROL SULFATE 2.5 MG AMPUL.NEB 3 ML INHALATION ×4 (03:01→19:16)
[2023-07-18] MEDS: ACETYLCYSTEINE 20% INHAL SOLN 800 MG/4 ML VIAL 200 MG INHALATION ×2 (03:02→08:50)
[2023-07-18] MEDS: guaiFENesin 200 MG/10 ML UDC 600 MG FEED TUBE ×3 (06:28→17:02)
[2023-07-18] MEDS: CENTRAL LINE FLUSH 10 ML IV PUSH ×3 (06:28→21:32)
[2023-07-18] MEDS: LANSOPRAZOLE ODT 30 MG TAB.RAP.DR FEED TUBE (06:28)
[2023-07-18 06:43] LABS: Basophils Percent Auto 0.5 % (0.2-1.2); Eosinophils Absolute Auto 0.5 K/mm3 (0-0.3); Eosinophils Percent Auto 9.5 % (0-4.4); Hematocrit 35.7 % (42.0-52.0); Hemoglobin 11.8 g/dL (14.0-18.0); Immature Granulocyte Absolute 0.01 K/mm3 (0.00-0.031); Immature Granulocyte Percent A 0.2 % (0-0.5); Lymphocytes Absolute Auto 2.24 K/mm3 (0.9-3.2); Lymphocytes Percent Auto 39.4 % (18.3-44.2); Mean Corpuscular HGB Conc 33.1 g/dl (32-36); Mean Corpuscular Hemoglobin 33.1 pg (26-34); Monocytes Absolute Auto 0.5 K/mm3 (0.1-0.6); Monocytes Percent Auto 9.2 % (2.6-8.5); Neutrophils Absolute Auto 2.3 K/mm3 (1.3-6.7); Neutrophils Percent Auto 41.2 % (45.5-73.1); Platelet Count Result 138 k/mm3 (150-375); Red Blood Count 3.57 M/mm3 (4.6-6.20); Red Cell Distribution Width 14.4 % (11.5-14.5); White Blood Count 5.7 K/mm3 (4.5-10.0)
[2023-07-18 06:54] LABS: Alanine Aminotransferase 14 U/L (6-50); Albumin Level 3.5 g/dL (3.5-5.1); Alkaline Phosphatase 93 U/L (38-126); Anion Gap 2 mmol/L (8-16); Aspartate Amino Transferase 23 U/L (17-59); Bilirubin,Total 0.3 mg/dL (0.2-1.3); Blood Urea Nitrogen 12 mg/dL (9-20); Calcium 9.6 mg/dL (8.4-10.2); Carbon Dioxide 30 mmol/L (22-30); Chloride 104 mmol/L (98-107); Estimated CRCL calculation 109 ml/min; Estimated Glomerular Filt Rate > 60; Glucose 112 mg/dL (65-110); Magnesium 1.8 mg/dL (1.6-2.3); Phosphorus 3.8 mg/dL (2.5-4.5); Potassium 4.2 mmol/L (3.4-5.0); Sodium 136 mmol/L (137-145)
[2023-07-18] MEDS: FOLIC ACID 1 MG TABLET FEED TUBE (08:24)
[2023-07-18] MEDS: FAMOTIDINE 20 MG TABLET FEED TUBE ×2 (08:24→21:32)
[2023-07-18] MEDS: cloBAZam (*CRX) 10 MG TABLET FEED TUBE ×2 (08:24→21:32)
[2023-07-18] MEDS: VALPROIC ACID LIQ 250 MG/5 ML ORAL SOLUTION UDC 500 MG PO ×4 (08:24→21:31)
[2023-07-18] MEDS: polyethylene glycoL 3350 17 GM POWD.PACK FEED TUBE (08:25)
[2023-07-18] MEDS: ASPIRIN 81 MG CHEWABLE TABLET FEED TUBE (08:25)
[2023-07-18] MEDS: MUPIROCIN 2% OINT 22 GM TUBE 1 APPLIC EACH NARE ×2 (08:25→21:32)
[2023-07-18] MEDS: levETIRAcetam ORAL SOL 500 MG/5 ML UDC 2000 MG FEED TUBE ×2 (08:25→21:31)
[2023-07-18] MEDS: levoFLOXacin 750 MG TABLET FEED TUBE (08:25)
[2023-07-18] MEDS: METOPROLOL TARTRATE 25 MG TABLET FEED TUBE ×2 (08:25→21:32)
[2023-07-18] MEDS: LACOSAMIDE (*CRX) 200 MG TABLET FEED TUBE ×2 (08:25→21:31)
[2023-07-18] MEDS: THIAMINE HCL 100 MG TABLET FEED TUBE (08:25)
--- NOTE | 2023-07-18 12:34 | PM.IMPN ---
Progress Note: A&P Assessment and Plan (1) Acute and chronic respiratory failure: Qualifiers: Respiratory failure complication: hypoxia Qualified Code(s): J96.21 - Acute and chronic respiratory failure with hypoxia Code(s): J96.20 - Acute and chronic respiratory failure, unspecified whether with hypoxia or hypercapnia Status: Acute Assessment and Plan: Patient was sent to the ED for dislodged trachea. [facility] and reportedly the tracheostomy became dislodged and they were unable to replace it.? A 6.5 Shiley was placed in the ER.?The patient was admitted to medical floor. He subsequently desaturated and was transferred to ICU to be placed on mechanical ventilation.? CXR revealed a collapsed right lung likely due to mucus plugging. The patient has had increased secretions With suctioning and CPT, symptoms improved Patient was downgraded to IMU. Able to wean settings CXR 07/14 showing minimal bibasilar pulmonary edema. Stable on trach collar (2) Tracheitis: Code(s): J04.10 - Acute tracheitis without obstruction Status: Acute Assessment and Plan: Sputum culture growing Pseudomonas essentially hanna-resistant. CXR showing no findings concerning for PNA. 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 Pseudomonas UTI was treated with Zosyn but now changed to Levaquin Secretions decreased. Complete abx. Stop mucinex (3) Complication of tracheostomy tube: Code(s): J95.00 - Unspecified tracheostomy complication Status: Acute Assessment and Plan: Trach replaced. Patient remains in restraints to prevent self-harm (4) Mucus plugging of bronchi: Code(s): T17.500A - Unspecified foreign body in bronchus causing asphyxiation, initial encounter Status: Acute Assessment and Plan: As above. Mucomyst started. Abx adjusted. Continue trach suctioning and CPT Abx and mocumyst improving his symptoms (5) UTI (urinary tract infection) due to urinary indwelling catheter: Code(s): T83.511A - Infection and inflammatory reaction due to indwelling urethral catheter, initial encounter; N39.0 - Urinary tract infection, site not specified Status: Acute Assessment and Plan: Urine cultures growing Pseudomonas resistant to imipenem and meropenem so meropenem was switched to Zosyn.? Vancomycin discontinued on 07/12.? Changed to levaquin to complete a course. (6) Thrombocytopenia: Code(s): D69.6 - Thrombocytopenia, unspecified Status: Acute Assessment and Plan: Plt count normal on admission but dropped to 70K. Lovenox stopped Anthony related to infection but has a hx of thrombocytopenia. Plan Hx of CVA - Continue ASA and Lipitor Psychotic disturbance - mood stable. Continue current meds DVT prophylaxis: SCDs Code Status: Full code Subjective Date/time seen: 07/18/23 12:34 Interval history: 63yo male with hx of CVA with residual aphasia, dysphagia and tracheostomy/G-tube placement, COPD, esophageal diverticulum, gastroparesis, iron deficiency anemia, seizure disorder, vascular dementia and psychotic disturbance here for trach malfunction. Pt alert but unable to provide hx. He was able to ask to be suctioned. Exam Narrative: AF 98.0 117/70 78 17 97% HF 10L Gen - NARD lying semi-recumbent in bed Neck - Trach midline Chest - clear anteriorly. nml RR CV - RRR S1/S2 Abd - Soft, ND, +BS, GTube site clean and dry - Jensen secured draining clear yellow urine Ext - left AKA; no RLE edema. Left UE edema noted Neuro - Alert mostly nonverbal Psych - calm Skin - Warm and dry Objective Data Vital Signs Vital Signs: Vital Signs - 24 hr 07/17/23 14:28 07/17/23 14:36 07/17/23 14:38 Temperature Pulse Rate 79 75 Respiratory Rate 20 20 Blood Pressure Pulse Oximetry 100 Oxygen Delivery High Flow Therapy with Tr O
[2023-07-18] MEDS: APIXABAN 5 MG TABLET 10 MG PO (21:31)
[2023-07-18] MEDS: ATORVASTATIN 40 MG TABLET FEED TUBE (21:32)
[2023-07-18] MEDS: CLOBAZAM 5 MG FEED TUBE (21:32)
[2023-07-19] VITALS (19 sets, daily range): BP systolic 129–148; BP diastolic 73–80; PULSE 72–97; RESP 16–20; TEMP 36.4–37.1; O2SAT 94–100
[2023-07-19] MEDS: guaiFENesin 200 MG/10 ML UDC 600 MG FEED TUBE ×4 (00:12→17:36)
[2023-07-19] MEDS: IPRATROPIUM 0.5 MG/ALBUTEROL SULFATE 2.5 MG AMPUL.NEB 3 ML INHALATION ×4 (01:30→20:29)
[2023-07-19] MEDS: LANSOPRAZOLE ODT 30 MG TAB.RAP.DR FEED TUBE (06:43)
[2023-07-19] MEDS: CENTRAL LINE FLUSH 10 ML IV PUSH ×3 (06:44→21:44)
[2023-07-19 07:33] LABS: Estimated CRCL calculation 109 ml/min; Estimated Glomerular Filt Rate > 60
--- NOTE | 2023-07-19 10:00 | PCNFU ---
Nutrition Follow-Up Complete: Inadequate energy intake related to NPO status, need for PEG tube as evidenced by need for full tube feeding Meet estimated protein energy needs Tolerate tube feeding at goal rate Goal: Current goals are being met with tube feeding at goal rate 50 ml/h. Continue with current goals Pt current nutrition is TF per PEG: Jevity 1.5 @ goal rate 50 ml/h. Nutrition recommendation: No new recommendations. Continue with current nutrition care plan and tube feeding orders. Agree with orders. Last recorded weight is 70.9 kg. Bowel Motility: +1 BM 07/19/23 Labs Reviewed: Hgb 11.8, Hct 35.7, Na 136, Cre 0.6 Meds Noted: Keppra, Thiamine, lopressor, miralax Skin:No pressure injuries Additional Notes: Meeting nutrition needs @ ~93% (25 kcal/kg) with Jevity 1,5 @ goal rate 50 ml/h: 1650 kcal, 70 g protein, 836 ml free water. Flush 250 ml water q 6 hours. Total water 1836 ml/day. Tolerating well at goal rate. Monitoring tube feeding tolerance, weights, labs, plan of care. Following daily in ICU rounds, reassess Tuesdays and Fridays
[2023-07-19] MEDS: APIXABAN 5 MG TABLET 10 MG PO ×2 (10:33→21:23)
[2023-07-19] MEDS: ASPIRIN 81 MG CHEWABLE TABLET FEED TUBE (10:34)
[2023-07-19] MEDS: FOLIC ACID 1 MG TABLET FEED TUBE (10:35)
[2023-07-19] MEDS: cloBAZam (*CRX) 10 MG TABLET FEED TUBE ×2 (10:35→21:23)
[2023-07-19] MEDS: LACOSAMIDE (*CRX) 200 MG TABLET FEED TUBE ×2 (10:36→21:23)
[2023-07-19] MEDS: METOPROLOL TARTRATE 25 MG TABLET FEED TUBE ×2 (10:38→21:23)
[2023-07-19] MEDS: FAMOTIDINE 20 MG TABLET FEED TUBE ×2 (10:40→21:44)
[2023-07-19] MEDS: THIAMINE HCL 100 MG TABLET FEED TUBE (10:40)
[2023-07-19] MEDS: polyethylene glycoL 3350 17 GM POWD.PACK FEED TUBE (10:42)
[2023-07-19] MEDS: levETIRAcetam ORAL SOL 500 MG/5 ML UDC 2000 MG FEED TUBE ×2 (10:42→21:24)
[2023-07-19] MEDS: VALPROIC ACID LIQ 250 MG/5 ML ORAL SOLUTION UDC 500 MG PO ×4 (10:43→21:24)
[2023-07-19] MEDS: MUPIROCIN 2% OINT 22 GM TUBE 1 APPLIC EACH NARE ×2 (10:44→21:24)
--- NOTE | 2023-07-19 12:03 | PM.IMPN ---
Progress Note: A&P Assessment and Plan (1) Acute and chronic respiratory failure: Qualifiers: Respiratory failure complication: hypoxia Qualified Code(s): J96.21 - Acute and chronic respiratory failure with hypoxia Code(s): J96.20 - Acute and chronic respiratory failure, unspecified whether with hypoxia or hypercapnia Status: Acute Assessment and Plan: Patient was sent to the ED for dislodged trachea. Patient resides in care home and reportedly the tracheostomy became dislodged and they were unable to replace it.? A 6.5 Shiley was placed in the ER.?The patient was admitted to medical floor. He subsequently desaturated and was transferred to ICU to be placed on mechanical ventilation.? CXR revealed a collapsed right lung likely due to mucus plugging. The patient has had increased secretions With suctioning and CPT, symptoms improved; less secretions now Able to wean settings CXR 07/14 showing minimal bibasilar pulmonary edema. Stable on trach collar (2) Tracheitis: Code(s): J04.10 - Acute tracheitis without obstruction Status: Acute Assessment and Plan: Sputum culture growing Pseudomonas essentially hanna-resistant. CXR showing no findings concerning for PNA. 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 Pseudomonas UTI was treated with Zosyn but now changed to Levaquin Secretions decreased. Completed abx. Mucomyst (3) Complication of tracheostomy tube: Code(s): J95.00 - Unspecified tracheostomy complication Status: Acute Assessment and Plan: Trach replaced. Patient remains in restraints to prevent self-harm (4) Mucus plugging of bronchi: Code(s): T17.500A - Unspecified foreign body in bronchus causing asphyxiation, initial encounter Status: Acute Assessment and Plan: As above. Mucomyst started. Abx adjusted. Continue trach suctioning and CPT Abx and mocumyst improving his symptoms Off abx and mucomyst (5) UTI (urinary tract infection) due to urinary indwelling catheter: Code(s): T83.511A - Infection and inflammatory reaction due to indwelling urethral catheter, initial encounter; N39.0 - Urinary tract infection, site not specified Status: Acute Assessment and Plan: Urine cultures growing Pseudomonas resistant to imipenem and meropenem so meropenem was switched to Zosyn.? Vancomycin discontinued on 07/12.? Changed to levaquin and completed a course. (6) Thrombocytopenia: Code(s): D69.6 - Thrombocytopenia, unspecified Status: Acute Assessment and Plan: Plt count normal on admission but dropped to 70K. Lovenox stopped [place] related to infection but has a hx of thrombocytopenia. Plt count better. (7) DVT (deep venous thrombosis): Code(s): I82.409 - Acute embolism and thrombosis of unspecified deep veins of unspecified lower extremity Status: Acute Assessment and Plan: Left UE doppler showing DVT left subclavian, axillary and basilic veins. Spoke with his sister. Patient has no hx of GI bleeding, cerebral hemorrhage or other reasons not to be on anticoagulation. Eliquis started Remove PICC line at time of discharge Plan Hx of CVA - Continue ASA and Lipitor Psychotic disturbance - mood stable. Continue current meds Disp - discharge anytime when care home DVT prophylaxis: SCDs Code Status: Full code Subjective Date/time seen: 07/19/23 12:03 Interval history: 63yo male with hx of CVA with residual aphasia, dysphagia and tracheostomy/G-tube placement, COPD, esophageal diverticulum, gastroparesis, iron deficiency anemia, seizure disorder, vascular dementia and psychotic disturbance here for trach malfunction. Pt alert but unable to provide hx. Spoke with respiratory and they are having to suction less often and less volume of secretions. Review of Systems Review of Systems: ROS unobtainable: Yes unobta
[2023-07-19] MEDS: ATORVASTATIN 40 MG TABLET FEED TUBE (21:23)
[2023-07-19] MEDS: CLOBAZAM 5 MG FEED TUBE (21:23)
[2023-07-20] VITALS (15 sets, daily range): BP systolic 117–150; BP diastolic 72–82; PULSE 76–104; RESP 16–18; TEMP 36.7–37.1; O2SAT 91–97
[2023-07-20] MEDS: guaiFENesin 200 MG/10 ML UDC 600 MG FEED TUBE ×4 (00:21→17:06)
[2023-07-20] MEDS: IPRATROPIUM 0.5 MG/ALBUTEROL SULFATE 2.5 MG AMPUL.NEB 3 ML INHALATION ×4 (02:59→20:26)
[2023-07-20] MEDS: LANSOPRAZOLE ODT 30 MG TAB.RAP.DR FEED TUBE (06:51)
[2023-07-20] MEDS: CENTRAL LINE FLUSH 10 ML IV PUSH ×3 (06:52→20:40)
[2023-07-20] MEDS: ASPIRIN 81 MG CHEWABLE TABLET FEED TUBE (09:43)
[2023-07-20] MEDS: VALPROIC ACID LIQ 250 MG/5 ML ORAL SOLUTION UDC 500 MG PO ×4 (09:43→20:37)
[2023-07-20] MEDS: LACOSAMIDE (*CRX) 200 MG TABLET FEED TUBE ×2 (09:44→20:37)
[2023-07-20] MEDS: THIAMINE HCL 100 MG TABLET FEED TUBE (09:44)
[2023-07-20] MEDS: METOPROLOL TARTRATE 25 MG TABLET FEED TUBE ×2 (09:44→20:28)
[2023-07-20] MEDS: FAMOTIDINE 20 MG TABLET FEED TUBE ×2 (09:44→20:28)
[2023-07-20] MEDS: cloBAZam (*CRX) 10 MG TABLET FEED TUBE ×2 (09:44→20:28)
[2023-07-20] MEDS: APIXABAN 5 MG TABLET 10 MG PO ×2 (09:47→20:28)
[2023-07-20] MEDS: polyethylene glycoL 3350 17 GM POWD.PACK FEED TUBE ×2 (09:48→20:27)
[2023-07-20] MEDS: FOLIC ACID 1 MG TABLET FEED TUBE (09:48)
[2023-07-20] MEDS: levETIRAcetam ORAL SOL 500 MG/5 ML UDC 2000 MG FEED TUBE ×2 (09:55→20:37)
[2023-07-20] MEDS: MUPIROCIN 2% OINT 22 GM TUBE 1 APPLIC EACH NARE ×2 (10:23→20:39)
--- NOTE | 2023-07-20 16:22 | PM.IMPN ---
Progress Note: A&P Assessment and Plan (1) Acute and chronic respiratory failure: Qualifiers: Respiratory failure complication: hypoxia Qualified Code(s): J96.21 - Acute and chronic respiratory failure with hypoxia Code(s): J96.20 - Acute and chronic respiratory failure, unspecified whether with hypoxia or hypercapnia Status: Acute Assessment and Plan: Patient was sent to the ED for dislodged trachea. Patient resides in residential and reportedly the tracheostomy became dislodged and they were unable to replace it.? A 6.5 Shiley was placed in the ER.?The patient was admitted to medical floor. He subsequently desaturated and was transferred to ICU to be placed on mechanical ventilation.? CXR revealed a collapsed right lung likely due to mucus plugging. The patient has had increased secretions With suctioning and CPT, symptoms improved; less secretions now Able to wean settings Stable on trach collar. (2) Tracheitis: Code(s): J04.10 - Acute tracheitis without obstruction Status: Acute Assessment and Plan: Sputum culture growing Pseudomonas essentially hanna-resistant. CXR showing no findings concerning for PNA. 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 Pseudomonas UTI was treated with Zosyn but now changed to Levaquin Secretions decreased. Completed abx. (3) Complication of tracheostomy tube: Code(s): J95.00 - Unspecified tracheostomy complication Status: Acute Assessment and Plan: Trach replaced. (4) Mucus plugging of bronchi: Code(s): T17.500A - Unspecified foreign body in bronchus causing asphyxiation, initial encounter Status: Acute Assessment and Plan: As above. Off abx and mucomyst (5) UTI (urinary tract infection) due to urinary indwelling catheter: Code(s): T83.511A - Infection and inflammatory reaction due to indwelling urethral catheter, initial encounter; N39.0 - Urinary tract infection, site not specified Status: Acute Assessment and Plan: Urine cultures growing Pseudomonas resistant to imipenem and meropenem so meropenem was switched to Zosyn.? Vancomycin discontinued on 07/12.? Changed to levaquin and completed a course. (6) Thrombocytopenia: Code(s): D69.6 - Thrombocytopenia, unspecified Status: Acute Assessment and Plan: Plt count normal on admission but dropped to 70K. Lovenox stopped [place] related to infection but has a hx of thrombocytopenia. Plt count better. (7) DVT (deep venous thrombosis): Code(s): I82.409 - Acute embolism and thrombosis of unspecified deep veins of unspecified lower extremity Status: Acute Assessment and Plan: Left UE doppler showing DVT left subclavian, axillary and basilic veins. Spoke with his sister. Patient has no hx of GI bleeding, cerebral hemorrhage or other reasons not to be on anticoagulation. Eliquis started Remove PICC line at time of discharge (8) Cerebrovascular accident: Code(s): I63.9 - Cerebral infarction, unspecified Status: Acute Assessment and Plan: History of. Continue aspirin and Lipitor Plan Psychotic disturbance - mood stable. Continue current meds Disp -essentially waiting for disposition to residential. Cannot return to many nursing homes for social situations. Care coordination currently trying [place] DVT prophylaxis: On Eliquis Code Status: Full code Subjective Date/time seen: 07/20/23 16:22 Interval history: No acute overnight events. The patient does not appear in pain or to have any complaints. Review of Systems Review of Systems: ROS unobtainable: Yes unobtainable due to medical condition Exam Const: General: comfortable and no acute distress Eyes: Pupils: Equal, round and reactive pupils present Resp: Effort & Inspection: normal respiratory effort Auscultation: clear to auscultation bilat
[2023-07-20] MEDS: ATORVASTATIN 40 MG TABLET FEED TUBE (20:28)
[2023-07-20] MEDS: CLOBAZAM 5 MG FEED TUBE (20:28)
[2023-07-21] VITALS (14 sets, daily range): BP systolic 139–155; BP diastolic 83–92; PULSE 84–113; RESP 16–19; TEMP 36.5–37.4; O2SAT 94–98
[2023-07-21] MEDS: guaiFENesin 200 MG/10 ML UDC 600 MG FEED TUBE ×5 (00:06→23:25)
[2023-07-21] MEDS: IPRATROPIUM 0.5 MG/ALBUTEROL SULFATE 2.5 MG AMPUL.NEB 3 ML INHALATION ×4 (02:40→20:20)
[2023-07-21] MEDS: CENTRAL LINE FLUSH 10 ML IV PUSH ×3 (05:57→23:26)
[2023-07-21] MEDS: LANSOPRAZOLE ODT 30 MG TAB.RAP.DR FEED TUBE (05:57)
[2023-07-21] MEDS: APIXABAN 5 MG TABLET 10 MG PO ×2 (08:33→20:45)
[2023-07-21] MEDS: THIAMINE HCL 100 MG TABLET FEED TUBE (08:33)
[2023-07-21] MEDS: METOPROLOL TARTRATE 25 MG TABLET FEED TUBE ×2 (08:34→20:46)
[2023-07-21] MEDS: FAMOTIDINE 20 MG TABLET FEED TUBE ×2 (08:34→20:46)
[2023-07-21] MEDS: VALPROIC ACID LIQ 250 MG/5 ML ORAL SOLUTION UDC 500 MG PO ×4 (08:35→20:44)
[2023-07-21] MEDS: cloBAZam (*CRX) 10 MG TABLET FEED TUBE ×2 (08:35→20:46)
[2023-07-21] MEDS: FOLIC ACID 1 MG TABLET FEED TUBE (08:35)
[2023-07-21] MEDS: ASPIRIN 81 MG CHEWABLE TABLET FEED TUBE (08:35)
[2023-07-21] MEDS: LACOSAMIDE (*CRX) 200 MG TABLET FEED TUBE ×2 (08:35→20:46)
[2023-07-21] MEDS: MUPIROCIN 2% OINT 22 GM TUBE 1 APPLIC EACH NARE ×2 (09:20→20:54)
[2023-07-21] MEDS: levETIRAcetam ORAL SOL 500 MG/5 ML UDC 2000 MG FEED TUBE ×2 (09:20→20:44)
--- NOTE | 2023-07-21 13:20 | PC.NURSE ---
On 07/21/23, the student, [Wood Aguiar], provided care and completed [facility] documentation on this patient. I have reviewed the student's documentation and agree with the findings.
--- NOTE | 2023-07-21 16:47 | PM.IMPN ---
Progress Note: A&P Assessment and Plan (1) Acute and chronic respiratory failure: Qualifiers: Respiratory failure complication: hypoxia Qualified Code(s): J96.21 - Acute and chronic respiratory failure with hypoxia Code(s): J96.20 - Acute and chronic respiratory failure, unspecified whether with hypoxia or hypercapnia Status: Acute Assessment and Plan: Patient was sent to the ED for dislodged trachea. Patient resides in group home and reportedly the tracheostomy became dislodged and they were unable to replace it.? A 6.5 Shiley was placed in the ER.?The patient was admitted to medical floor. He subsequently desaturated and was transferred to ICU to be placed on mechanical ventilation.? CXR revealed a collapsed right lung likely due to mucus plugging. The patient has had increased secretions With suctioning and CPT, symptoms improved; less secretions now Able to wean settings Stable on trach collar. (2) Tracheitis: Code(s): J04.10 - Acute tracheitis without obstruction Status: Acute Assessment and Plan: Sputum culture growing Pseudomonas essentially hanna-resistant. CXR showing no findings concerning for PNA. 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 Pseudomonas UTI was treated with Zosyn but now changed to Levaquin Secretions decreased. Completed abx. (3) Complication of tracheostomy tube: Code(s): J95.00 - Unspecified tracheostomy complication Status: Acute Assessment and Plan: Trach replaced. (4) Mucus plugging of bronchi: Code(s): T17.500A - Unspecified foreign body in bronchus causing asphyxiation, initial encounter Status: Acute Assessment and Plan: As above. Off abx and mucomyst (5) UTI (urinary tract infection) due to urinary indwelling catheter: Code(s): T83.511A - Infection and inflammatory reaction due to indwelling urethral catheter, initial encounter; N39.0 - Urinary tract infection, site not specified Status: Acute Assessment and Plan: Urine cultures growing Pseudomonas resistant to imipenem and meropenem so meropenem was switched to Zosyn.? Vancomycin discontinued on 07/12.? Changed to levaquin and completed a course. (6) Thrombocytopenia: Code(s): D69.6 - Thrombocytopenia, unspecified Status: Acute Assessment and Plan: Plt count normal on admission but dropped to 70K. Lovenox stopped [place] related to infection but has a hx of thrombocytopenia. Plt count better. (7) DVT (deep venous thrombosis): Code(s): I82.409 - Acute embolism and thrombosis of unspecified deep veins of unspecified lower extremity Status: Acute Assessment and Plan: Left UE doppler showing DVT left subclavian, axillary and basilic veins. Spoke with his sister. Patient has no hx of GI bleeding, cerebral hemorrhage or other reasons not to be on anticoagulation. Eliquis started Remove PICC line at time of discharge (8) Cerebrovascular accident: Code(s): I63.9 - Cerebral infarction, unspecified Status: Acute Assessment and Plan: History of. Continue aspirin and Lipitor Plan Psychotic disturbance - mood stable. Continue current meds Disp -essentially waiting for disposition to group home. Cannot return to many nursing homes for social situations. Care coordination currently trying [place]. Refer to care coordination notes. Sister thinks that [place] is too far. Dispo still pending. DVT prophylaxis: On Eliquis Code Status: Full code Subjective Date/time seen: 07/21/23 16:47 Interval history: No acute overnight events. Patient does not complain of pain. He reports comfortable breathing by way of nodding his head. Review of Systems Review of Systems: All systems reviewed & are unremarkable except as noted in HPI and below (Subjective) Exam Const: General: comfortable and no acute d
[2023-07-21] MEDS: polyethylene glycoL 3350 17 GM POWD.PACK FEED TUBE (20:44)
[2023-07-21] MEDS: CLOBAZAM 5 MG FEED TUBE (20:45)
[2023-07-21] MEDS: ATORVASTATIN 40 MG TABLET FEED TUBE (20:46)
[2023-07-22] VITALS (11 sets, daily range): BP systolic 122–131; BP diastolic 74–83; PULSE 83–100; RESP 16–18; TEMP 36.4–36.8; O2SAT 5–98
[2023-07-22] MEDS: IPRATROPIUM 0.5 MG/ALBUTEROL SULFATE 2.5 MG AMPUL.NEB 3 ML INHALATION ×2 (02:45→13:08)
[2023-07-22] MEDS: LANSOPRAZOLE ODT 30 MG TAB.RAP.DR FEED TUBE (06:20)
[2023-07-22] MEDS: guaiFENesin 200 MG/10 ML UDC 600 MG FEED TUBE ×4 (06:20→19:47)
[2023-07-22] MEDS: CENTRAL LINE FLUSH 10 ML IV PUSH ×3 (06:21→19:50)
[2023-07-22] MEDS: VALPROIC ACID LIQ 250 MG/5 ML ORAL SOLUTION UDC 500 MG PO ×4 (08:03→19:53)
[2023-07-22] MEDS: LACOSAMIDE (*CRX) 200 MG TABLET FEED TUBE ×2 (08:04→19:46)
[2023-07-22] MEDS: FAMOTIDINE 20 MG TABLET FEED TUBE ×2 (08:04→19:46)
[2023-07-22] MEDS: THIAMINE HCL 100 MG TABLET FEED TUBE (08:04)
[2023-07-22] MEDS: polyethylene glycoL 3350 17 GM POWD.PACK FEED TUBE ×2 (08:04→19:45)
[2023-07-22] MEDS: ASPIRIN 81 MG CHEWABLE TABLET FEED TUBE (08:04)
[2023-07-22] MEDS: cloBAZam (*CRX) 10 MG TABLET FEED TUBE ×2 (08:04→19:47)
[2023-07-22] MEDS: METOPROLOL TARTRATE 25 MG TABLET FEED TUBE ×2 (08:04→19:46)
[2023-07-22] MEDS: APIXABAN 5 MG TABLET 10 MG PO ×2 (08:04→19:46)
[2023-07-22] MEDS: FOLIC ACID 1 MG TABLET FEED TUBE (08:04)
[2023-07-22] MEDS: MUPIROCIN 2% OINT 22 GM TUBE 1 APPLIC EACH NARE ×2 (08:05→19:51)
[2023-07-22] MEDS: levETIRAcetam ORAL SOL 500 MG/5 ML UDC 2000 MG FEED TUBE ×2 (08:47→19:47)
--- NOTE | 2023-07-22 10:40 | PCNFU ---
Nutrition Follow-Up Complete: Inadequate energy intake related to NPO status, need for PEG tube as evidenced by need for full tube feeding Goal: Meet estimated protein energy needs Tolerate tube feeding at goal rate Patient is meeting goal. No new goal. Pt current nutrition is Jevity 1.5 at 50 ml/hr. Last recorded weight is 72.7 kg, up from 70.7 kg on admit. Bowel Motility: +Bm reported 07/19 Labs Reviewed:Cr 0.6,Na 136, Hct 35.7,Hgb 11.8 Meds Noted:Keppra, Lopressor, Folic Acid Skin: WNL Additional Notes: Patient remains on PEG tube feedings of Jevity 1.5 at 50 ml/hr and tolerating per nursing. Flush 250 ml q 6 hours. Tube feedings providing 1650 kcals/70 gms protein/836 ml water, meeting 93% kcal needs at 25 kcal/kg and 100% protein needs at 1.0 gm/kg. Plans for discharge today. Agree with diet orders. Monitoring tube feeding tolerance, weights, labs, plan of care. Following daily in ICU rounds, reassess Tuesdays and Fridays
--- NOTE | 2023-07-22 13:43 | PM.IMPN ---
Progress Note: A&P Assessment and Plan (1) Acute and chronic respiratory failure: Qualifiers: Respiratory failure complication: hypoxia Qualified Code(s): J96.21 - Acute and chronic respiratory failure with hypoxia Code(s): J96.20 - Acute and chronic respiratory failure, unspecified whether with hypoxia or hypercapnia Status: Acute Assessment and Plan: Patient was sent to the ED for dislodged trachea. Patient resides in senior care and reportedly the tracheostomy became dislodged and they were unable to replace it.? A 6.5 Shiley was placed in the ER.?The patient was admitted to medical floor. He subsequently desaturated and was transferred to ICU to be placed on mechanical ventilation.? CXR revealed a collapsed right lung likely due to mucus plugging. The patient has had increased secretions With suctioning and CPT, symptoms improved; less secretions now Able to wean settings Stable on trach collar. DuoNebs changed to p.r.n. (2) Tracheitis: Code(s): J04.10 - Acute tracheitis without obstruction Status: Acute Assessment and Plan: Sputum culture growing Pseudomonas essentially hanna-resistant. CXR showing no findings concerning for PNA. 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 Pseudomonas UTI was treated with Zosyn but now changed to Levaquin Secretions decreased. Completed abx. (3) Complication of tracheostomy tube: Code(s): J95.00 - Unspecified tracheostomy complication Status: Acute Assessment and Plan: Trach replaced. (4) Mucus plugging of bronchi: Code(s): T17.500A - Unspecified foreign body in bronchus causing asphyxiation, initial encounter Status: Acute Assessment and Plan: As above. Off abx and mucomyst (5) UTI (urinary tract infection) due to urinary indwelling catheter: Code(s): T83.511A - Infection and inflammatory reaction due to indwelling urethral catheter, initial encounter; N39.0 - Urinary tract infection, site not specified Status: Acute Assessment and Plan: Urine cultures growing Pseudomonas resistant to imipenem and meropenem so meropenem was switched to Zosyn.? Vancomycin discontinued on 07/12.? Changed to levaquin and completed a course. (6) Thrombocytopenia: Code(s): D69.6 - Thrombocytopenia, unspecified Status: Acute Assessment and Plan: Plt count normal on admission but dropped to 70K. Lovenox stopped [address] related to infection but has a hx of thrombocytopenia. Plt count better. (7) DVT (deep venous thrombosis): Code(s): I82.409 - Acute embolism and thrombosis of unspecified deep veins of unspecified lower extremity Status: Acute Assessment and Plan: Left UE doppler showing DVT left subclavian, axillary and basilic veins. Spoke with his sister. Patient has no hx of GI bleeding, cerebral hemorrhage or other reasons not to be on anticoagulation. Eliquis started Remove PICC line at time of discharge (8) Cerebrovascular accident: Code(s): I63.9 - Cerebral infarction, unspecified Status: Acute Assessment and Plan: History of. Continue aspirin and Lipitor Plan Psychotic disturbance - mood stable. Continue current meds FEN: Tube feeds. Saline lock IV. GI prophylaxis: Continue Pepcid DVT prophylaxis: He is now on Eliquis Lines: PICC line Code Status: Full code Dispo: Dispo pending with care coordination. They are working with [facility] Subjective Date/time seen: 07/22/23 13:43 Interval history: No acute overnight events. Patient does not illicit complaints Review of Systems Review of Systems: All systems reviewed & are unremarkable except as noted in HPI and below (Subjective) ROS unobtainable: Yes unobtainable due to medical condition and unobtainable due to mental status Exam Const: General: comfortable and no acute distress Neck: Neck: supple Res
[2023-07-22] MEDS: ATORVASTATIN 40 MG TABLET FEED TUBE (19:46)
[2023-07-22] MEDS: CLOBAZAM 5 MG FEED TUBE (19:46)
[2023-07-23] VITALS (7 sets, daily range): BP systolic 124–130; BP diastolic 73–84; PULSE 80–108; RESP 16–22; TEMP 36.7–36.9; O2SAT 90–95
[2023-07-23] MEDS: LANSOPRAZOLE ODT 30 MG TAB.RAP.DR FEED TUBE (05:16)
[2023-07-23] MEDS: guaiFENesin 200 MG/10 ML UDC 600 MG FEED TUBE ×3 (05:16→17:40)
[2023-07-23] MEDS: CENTRAL LINE FLUSH 10 ML IV PUSH ×3 (05:17→19:42)
[2023-07-23 06:11] LABS: Basophils Percent Auto 0.3 % (0.2-1.2); Eosinophils Absolute Auto 0.3 K/mm3 (0-0.3); Eosinophils Percent Auto 4.6 % (0-4.4); Hematocrit 37.5 % (42.0-52.0); Hemoglobin 11.9 g/dL (14.0-18.0); Immature Granulocyte Absolute 0.01 K/mm3 (0.00-0.031); Immature Granulocyte Percent A 0.2 % (0-0.5); Lymphocytes Absolute Auto 2.68 K/mm3 (0.9-3.2); Lymphocytes Percent Auto 42.7 % (18.3-44.2); Mean Corpuscular HGB Conc 31.7 g/dl (32-36); Mean Corpuscular Hemoglobin 31.8 pg (26-34); Mean Corpuscular Volume 100.3 fl (80-100); Mean Platelet Volume 12.5 fl (7.4-10.4); Monocytes Absolute Auto 0.6 K/mm3 (0.1-0.6); Monocytes Percent Auto 8.8 % (2.6-8.5); Neutrophils Absolute Auto 2.7 K/mm3 (1.3-6.7); Neutrophils Percent Auto 43.4 % (45.5-73.1); Platelet Count Result 178 k/mm3 (150-375); Red Blood Count 3.74 M/mm3 (4.6-6.20); Red Cell Distribution Width 14.5 % (11.5-14.5); White Blood Count 6.3 K/mm3 (4.5-10.0)
[2023-07-23 06:29] LABS: Anion Gap 4 mmol/L (8-16); Blood Urea Nitrogen 11 mg/dL (9-20); Calcium 9.4 mg/dL (8.4-10.2); Carbon Dioxide 30 mmol/L (22-30); Chloride 103 mmol/L (98-107); Estimated CRCL calculation 131 ml/min; Estimated Glomerular Filt Rate > 60; Glucose 92 mg/dL (65-110); Potassium 4.4 mmol/L (3.4-5.0); Sodium 137 mmol/L (137-145)
[2023-07-23] MEDS: ASPIRIN 81 MG CHEWABLE TABLET FEED TUBE (09:12)
[2023-07-23] MEDS: FOLIC ACID 1 MG TABLET FEED TUBE (09:12)
[2023-07-23] MEDS: FAMOTIDINE 20 MG TABLET FEED TUBE ×2 (09:12→19:41)
[2023-07-23] MEDS: polyethylene glycoL 3350 17 GM POWD.PACK FEED TUBE ×2 (09:12→19:41)
[2023-07-23] MEDS: METOPROLOL TARTRATE 25 MG TABLET FEED TUBE ×2 (09:13→19:41)
[2023-07-23] MEDS: APIXABAN 5 MG TABLET 10 MG PO ×2 (09:13→19:40)
[2023-07-23] MEDS: cloBAZam (*CRX) 10 MG TABLET FEED TUBE ×3 (09:13→19:42)
[2023-07-23] MEDS: THIAMINE HCL 100 MG TABLET FEED TUBE (09:13)
[2023-07-23] MEDS: VALPROIC ACID LIQ 250 MG/5 ML ORAL SOLUTION UDC 500 MG PO ×4 (09:19→19:39)
[2023-07-23] MEDS: MUPIROCIN 2% OINT 22 GM TUBE 1 APPLIC EACH NARE ×2 (09:19→19:41)
[2023-07-23] MEDS: LACOSAMIDE (*CRX) 200 MG TABLET FEED TUBE ×2 (09:20→19:39)
[2023-07-23] MEDS: levETIRAcetam ORAL SOL 500 MG/5 ML UDC 2000 MG FEED TUBE ×2 (09:23→19:38)
--- NOTE | 2023-07-23 16:03 | PM.IMPN ---
Progress Note: A&P Assessment and Plan (1) Acute and chronic respiratory failure: Qualifiers: Respiratory failure complication: hypoxia Qualified Code(s): J96.21 - Acute and chronic respiratory failure with hypoxia Code(s): J96.20 - Acute and chronic respiratory failure, unspecified whether with hypoxia or hypercapnia Status: Acute Assessment and Plan: Patient was sent to the ED for dislodged trachea. Patient resides in [facility] and reportedly the tracheostomy became dislodged and they were unable to replace it.? A 6.5 Shiley was placed in the ER.?The patient was admitted to medical floor. He subsequently desaturated and was transferred to ICU to be placed on mechanical ventilation.? CXR revealed a collapsed right lung likely due to mucus plugging. The patient has had increased secretions With suctioning and CPT, symptoms improved; less secretions now Able to wean settings Stable on trach collar. DuoNebs changed to p.r.n. (2) Tracheitis: Code(s): J04.10 - Acute tracheitis without obstruction Status: Acute Assessment and Plan: Sputum culture growing Pseudomonas essentially hanna-resistant. CXR showing no findings concerning for PNA. 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 Pseudomonas UTI was treated with Zosyn but now changed to Levaquin Secretions decreased. Completed abx. (3) Complication of tracheostomy tube: Code(s): J95.00 - Unspecified tracheostomy complication Status: Acute Assessment and Plan: Trach replaced. (4) Mucus plugging of bronchi: Code(s): T17.500A - Unspecified foreign body in bronchus causing asphyxiation, initial encounter Status: Acute Assessment and Plan: As above. Off abx and mucomyst (5) UTI (urinary tract infection) due to urinary indwelling catheter: Code(s): T83.511A - Infection and inflammatory reaction due to indwelling urethral catheter, initial encounter; N39.0 - Urinary tract infection, site not specified Status: Acute Assessment and Plan: Urine cultures growing Pseudomonas resistant to imipenem and meropenem so meropenem was switched to Zosyn.? Vancomycin discontinued on 07/12.? Changed to levaquin and completed a course. (6) Thrombocytopenia: Code(s): D69.6 - Thrombocytopenia, unspecified Status: Acute Assessment and Plan: Plt count normal on admission but dropped to 70K. Lovenox stopped [place] related to infection but has a hx of thrombocytopenia. Plt count better. (7) DVT (deep venous thrombosis): Code(s): I82.409 - Acute embolism and thrombosis of unspecified deep veins of unspecified lower extremity Status: Acute Assessment and Plan: Left UE doppler showing DVT left subclavian, axillary and basilic veins. Spoke with his sister. Patient has no hx of GI bleeding, cerebral hemorrhage or other reasons not to be on anticoagulation. Eliquis started Remove PICC line at time of discharge (8) Cerebrovascular accident: Code(s): I63.9 - Cerebral infarction, unspecified Status: Acute Assessment and Plan: History of. Continue aspirin and Lipitor Plan Psychotic disturbance - mood stable. Continue current meds FEN: Tube feeds. Saline lock IV. GI prophylaxis: Continue Pepcid DVT prophylaxis: He is now on Eliquis Lines: PICC line Code Status: Full code Dispo: Dispo pending with care coordination. They are working with [facility] Subjective Date/time seen: 07/23/23 16:03 Interval history: No acute overnight events Review of Systems Review of Systems: All systems reviewed & are unremarkable except as noted in HPI and below (Subjective) Exam Const: General: comfortable and no acute distress Neck: Neck: supple Resp: Effort & Inspection: normal respiratory effort Auscultation: clear to auscultation bilaterally Cardio: Rate: regular rate [place]yt
[2023-07-23] MEDS: CLOBAZAM 5 MG FEED TUBE (19:41)
[2023-07-23] MEDS: ATORVASTATIN 40 MG TABLET FEED TUBE (19:41)
[2023-07-24] MEDS: guaiFENesin 200 MG/10 ML UDC 600 MG FEED TUBE ×2 (01:05→05:01)
[2023-07-24] MEDS: LANSOPRAZOLE ODT 30 MG TAB.RAP.DR FEED TUBE (05:02)
[2023-07-24] MEDS: CENTRAL LINE FLUSH 10 ML IV PUSH ×3 (05:03→20:38)
[2023-07-24 08:21] VITALS: O2SAT 94
[2023-07-24] MEDS: levETIRAcetam ORAL SOL 500 MG/5 ML UDC 2000 MG FEED TUBE (09:12)
[2023-07-24] MEDS: VALPROIC ACID LIQ 250 MG/5 ML ORAL SOLUTION UDC 500 MG PO (09:12)
[2023-07-24 09:13] VITALS: PULSE 70
[2023-07-24] MEDS: METOPROLOL TARTRATE 25 MG TABLET FEED TUBE (09:13)
[2023-07-24] MEDS: ASPIRIN 81 MG CHEWABLE TABLET FEED TUBE (09:13)
[2023-07-24] MEDS: LACOSAMIDE (*CRX) 200 MG TABLET FEED TUBE (09:13)
[2023-07-24] MEDS: THIAMINE HCL 100 MG TABLET FEED TUBE (09:13)
[2023-07-24] MEDS: FOLIC ACID 1 MG TABLET FEED TUBE (09:13)
[2023-07-24] MEDS: FAMOTIDINE 20 MG TABLET FEED TUBE (09:13)
[2023-07-24] MEDS: APIXABAN 5 MG TABLET 10 MG PO (09:13)
--- NOTE | 2023-07-24 10:00 | PC.NURSE ---
Patient PEG tube was leaking this morning. Some mild leakage noted yesterday but with position change it went away. Called Dr. Harrison and he advised holding tube feeding for now and abdominal XR. XR came back with PEG tube reading in proper placement and tube feed was resumed. Upon Dr. Baca assessment, it was leaking again and instructed to hold all tube feed/flushes/meds though the PEG and to consult GI to examine his PEG tube.
[2023-07-24 13:39] VITALS: BP 135/76; PULSE 94; RESP 16; TEMP 36.8; O2SAT 96
--- NOTE | 2023-07-24 14:04 | PM.IMPN ---
Progress Note: A&P Assessment and Plan (1) Acute and chronic respiratory failure: Qualifiers: Respiratory failure complication: hypoxia Qualified Code(s): J96.21 - Acute and chronic respiratory failure with hypoxia Code(s): J96.20 - Acute and chronic respiratory failure, unspecified whether with hypoxia or hypercapnia Status: Acute Assessment and Plan: Patient was sent to the ED for dislodged trachea. [facility] resides in [facility] and reportedly the tracheostomy became dislodged and they were unable to replace it.? A 6.5 Shiley was placed in the ER.?The patient was admitted to medical floor. He subsequently desaturated and was transferred to ICU to be placed on mechanical ventilation.? CXR revealed a collapsed right lung likely due to mucus plugging. The patient has had increased secretions With suctioning and CPT, symptoms improved; less secretions now Able to wean settings Stable on trach collar. DuoNebs changed to p.r.n. (2) Tracheitis: Code(s): J04.10 - Acute tracheitis without obstruction Status: Acute Assessment and Plan: Sputum culture growing Pseudomonas essentially hanna-resistant. CXR showing no findings concerning for PNA. 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 Pseudomonas UTI was treated with Zosyn but now changed to Levaquin Secretions decreased. Completed abx. (3) Complication of tracheostomy tube: Code(s): J95.00 - Unspecified tracheostomy complication Status: Acute Assessment and Plan: Trach replaced. (4) Mucus plugging of bronchi: Code(s): T17.500A - Unspecified foreign body in bronchus causing asphyxiation, initial encounter Status: Acute Assessment and Plan: As above. Off abx and mucomyst (5) UTI (urinary tract infection) due to urinary indwelling catheter: Code(s): T83.511A - Infection and inflammatory reaction due to indwelling urethral catheter, initial encounter; N39.0 - Urinary tract infection, site not specified Status: Acute Assessment and Plan: Urine cultures growing Pseudomonas resistant to imipenem and meropenem so meropenem was switched to Zosyn.? Vancomycin discontinued on 07/12.? Changed to levaquin and completed a course. (6) Thrombocytopenia: Code(s): D69.6 - Thrombocytopenia, unspecified Status: Acute Assessment and Plan: Plt count normal on admission but dropped to 70K. Lovenox stopped [place] related to infection but has a hx of thrombocytopenia. Plt count better. (7) DVT (deep venous thrombosis): Code(s): I82.409 - Acute embolism and thrombosis of unspecified deep veins of unspecified lower extremity Status: Acute Assessment and Plan: Left UE doppler showing DVT left subclavian, axillary and basilic veins. Spoke with his sister. Patient has no hx of GI bleeding, cerebral hemorrhage or other reasons not to be on anticoagulation. Eliquis started Remove PICC line at time of discharge (8) Cerebrovascular accident: Code(s): I63.9 - Cerebral infarction, unspecified Status: Acute Assessment and Plan: History of. Continue aspirin and Lipitor Plan Psychotic disturbance - mood stable. Continue current meds On 07/24 his gastrostomy tube is leaking now. Hold all meds flushes and tube feeds. Keppra p.o. changed IV 2 g IV b.i.d.. Consult Gastroenterology. Change Pepcid to IV. KUB unremarkable. Nonobstructive gas pattern FEN: Saline lock IV GI prophylaxis: Continue Pepcid DVT prophylaxis: Hold Eliquis. SCDs only. Lines: PICC line Code Status: Full code Dispo: Dispo pending with care coordination. They are working with [facility] Subjective Date/time seen: 07/24/23 14:04 Interval history: Patient's gastrostomy tube is leaking. Does not elicit complaints or complain of pain. Review of Systems Review of Systems: All systems reviewed & are unremark
[2023-07-24] MEDS: ACETAMINOPHEN 325 MG SUPPOSITORY RECTAL (16:23)
[2023-07-24 19:55] VITALS: O2SAT 93
[2023-07-24] MEDS: levETIRAcetam IV 2,000 MG in DEXTROSE 5% 100 ML 480 MG IVPB (20:37)
[2023-07-24] MEDS: FAMOTIDINE 20 MG/2 ML VIAL IV PUSH (20:37)
[2023-07-24 21:12] VITALS: BP 123/84; PULSE 93; RESP 16; TEMP 36.7; O2SAT 93
[2023-07-25 04:47] VITALS: BP 129/80; PULSE 100; RESP 16; TEMP 36.6; O2SAT 91
[2023-07-25] MEDS: CENTRAL LINE FLUSH 20 ML IV PUSH (04:48)
[2023-07-25] MEDS: CENTRAL LINE FLUSH 10 ML IV PUSH ×3 (04:48→20:35)
[2023-07-25 04:53] LABS: Basophils Percent Auto 0.2 % (0.2-1.2); Eosinophils Absolute Auto 0.2 K/mm3 (0-0.3); Eosinophils Percent Auto 2.3 % (0-4.4); Hematocrit 38.5 % (42.0-52.0); Hemoglobin 12.6 g/dL (14.0-18.0); Immature Granulocyte Absolute 0.02 K/mm3 (0.00-0.031); Immature Granulocyte Percent A 0.2 % (0-0.5); Lymphocytes Absolute Auto 2.57 K/mm3 (0.9-3.2); Lymphocytes Percent Auto 30.7 % (18.3-44.2); Mean Corpuscular HGB Conc 32.7 g/dl (32-36); Mean Corpuscular Hemoglobin 32.9 pg (26-34); Mean Corpuscular Volume 100.5 fl (80-100); Mean Platelet Volume 12.2 fl (7.4-10.4); Monocytes Absolute Auto 0.8 K/mm3 (0.1-0.6); Monocytes Percent Auto 9.4 % (2.6-8.5); Neutrophils Absolute Auto 4.8 K/mm3 (1.3-6.7); Neutrophils Percent Auto 57.2 % (45.5-73.1); Platelet Count Result 225 k/mm3 (150-375); Red Blood Count 3.83 M/mm3 (4.6-6.20); Red Cell Distribution Width 14.4 % (11.5-14.5); White Blood Count 8.4 K/mm3 (4.5-10.0)
[2023-07-25 05:07] LABS: Alanine Aminotransferase 14 U/L (6-50); Albumin Level 3.7 g/dL (3.5-5.1); Alkaline Phosphatase 118 U/L (38-126); Anion Gap 6 mmol/L (8-16); Aspartate Amino Transferase 25 U/L (17-59); Bilirubin,Total 0.6 mg/dL (0.2-1.3); Blood Urea Nitrogen 16 mg/dL (9-20); Calcium 9.8 mg/dL (8.4-10.2); Carbon Dioxide 27 mmol/L (22-30); Chloride 107 mmol/L (98-107); Estimated CRCL calculation 105 ml/min; Estimated Glomerular Filt Rate > 60; Glucose 83 mg/dL (65-110); Magnesium 1.9 mg/dL (1.6-2.3); Sodium 140 mmol/L (137-145)
[2023-07-25 05:24] LABS: Procalcitonin 0.2 ng/mL
[2023-07-25] MEDS: levETIRAcetam IV 2,000 MG in DEXTROSE 5% 100 ML 480 MG IVPB ×2 (08:17→20:35)
[2023-07-25] MEDS: FAMOTIDINE 20 MG/2 ML VIAL IV PUSH ×2 (08:17→20:35)
[2023-07-25 08:29] VITALS: O2SAT 95
[2023-07-25 13:47] VITALS: BP 124/87; PULSE 92; RESP 20; TEMP 36.8; O2SAT 90
--- NOTE | 2023-07-25 14:09 | PM.IMPN ---
Progress Note: A&P Assessment and Plan (1) Acute and chronic respiratory failure: Qualifiers: Respiratory failure complication: hypoxia Qualified Code(s): J96.21 - Acute and chronic respiratory failure with hypoxia Code(s): J96.20 - Acute and chronic respiratory failure, unspecified whether with hypoxia or hypercapnia Status: Acute Assessment and Plan: Patient was sent to the ED for dislodged trachea. [facility] and reportedly the tracheostomy became dislodged and they were unable to replace it.? A 6.5 Shiley was placed in the ER.?The patient was admitted to medical floor. He subsequently desaturated and was transferred to ICU to be placed on mechanical ventilation.? CXR revealed a collapsed right lung likely due to mucus plugging. The patient has had increased secretions With suctioning and CPT, symptoms improved; less secretions now Able to wean settings Stable on trach collar. DuoNebs changed to p.r.n. (2) Tracheitis: Code(s): J04.10 - Acute tracheitis without obstruction Status: Acute Assessment and Plan: Sputum culture growing Pseudomonas essentially hanna-resistant. CXR showing no findings concerning for PNA. 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 Pseudomonas UTI was treated with Zosyn but now changed to Levaquin Secretions decreased. Completed abx. (3) Complication of tracheostomy tube: Code(s): J95.00 - Unspecified tracheostomy complication Status: Acute Assessment and Plan: Trach replaced. (4) Mucus plugging of bronchi: Code(s): T17.500A - Unspecified foreign body in bronchus causing asphyxiation, initial encounter Status: Acute Assessment and Plan: As above. Off abx and mucomyst (5) UTI (urinary tract infection) due to urinary indwelling catheter: Code(s): T83.511A - Infection and inflammatory reaction due to indwelling urethral catheter, initial encounter; N39.0 - Urinary tract infection, site not specified Status: Acute Assessment and Plan: Urine cultures growing Pseudomonas resistant to imipenem and meropenem so meropenem was switched to Zosyn.? Vancomycin discontinued on 07/12.? Changed to levaquin and completed a course. (6) Thrombocytopenia: Code(s): D69.6 - Thrombocytopenia, unspecified Status: Acute Assessment and Plan: Plt count normal on admission but dropped to 70K. Lovenox stopped [place] related to infection but has a hx of thrombocytopenia. Plt count better. (7) DVT (deep venous thrombosis): Code(s): I82.409 - Acute embolism and thrombosis of unspecified deep veins of unspecified lower extremity Status: Acute Assessment and Plan: Left UE doppler showing DVT left subclavian, axillary and basilic veins. Spoke with his sister. Patient has no hx of GI bleeding, cerebral hemorrhage or other reasons not to be on anticoagulation. Eliquis started Remove PICC line at time of discharge (8) Cerebrovascular accident: Code(s): I63.9 - Cerebral infarction, unspecified Status: Acute Assessment and Plan: History of. Continue aspirin and Lipitor Plan Psychotic disturbance - mood stable. Continue current meds On 07/24 his gastrostomy tube is leaking now. Hold all meds flushes and tube feeds. Keppra p.o. changed IV 2 g IV b.i.d.. Consult Gastroenterology. Change Pepcid to IV. KUB unremarkable. Nonobstructive gas pattern FEN: Saline lock IV GI prophylaxis: Continue Pepcid DVT prophylaxis: Hold Eliquis. SCDs only. Lines: PICC line Code Status: Full code Dispo: Dispo pending with care coordination. They are working with [facility] Subjective Date/time seen: 07/25/23 14:09 Interval history: No acute overnight events. Review of Systems Review of Systems: All systems reviewed & are unremarkable except as noted in HPI and below (Subjective) ROS unobta
--- NOTE | 2023-07-25 17:10 | PC.NURSE ---
I reviewed the License Pending RN's documentation and agree with the findings.
[2023-07-25 20:08] VITALS: BP 105/69; PULSE 120; RESP 18; TEMP 36.6; O2SAT 95
[2023-07-25 21:24] VITALS: O2SAT 95
[2023-07-25] MEDS: ACETAMINOPHEN 325 MG SUPPOSITORY RECTAL (21:53)
[2023-07-25] MEDS: DEXTROSE 5%/0.45% SOD CHL 1,000 ML 100 ML IV CONT (23:06)
[2023-07-26] VITALS (10 sets, daily range): BP systolic 120–145; BP diastolic 74–84; PULSE 72–85; RESP 16–18; TEMP 36.4–36.9; O2SAT 92–97
[2023-07-26 00:08] LABS: Glucose Point of Care 99 mg/dl (65-105)
[2023-07-26] MEDS: CENTRAL LINE FLUSH 10 ML IV PUSH ×2 (04:35→21:04)
[2023-07-26] MEDS: CENTRAL LINE FLUSH 20 ML IV PUSH (04:36)
[2023-07-26 04:45] LABS: Hematocrit 37.5 % (42.0-52.0); Hemoglobin 12.1 g/dL (14.0-18.0); Mean Corpuscular HGB Conc 32.3 g/dl (32-36); Mean Corpuscular Hemoglobin 32.3 pg (26-34); Mean Platelet Volume 11.7 fl (7.4-10.4); Platelet Count Result 254 k/mm3 (150-375); Red Blood Count 3.75 M/mm3 (4.6-6.20); Red Cell Distribution Width 14.1 % (11.5-14.5); White Blood Count 6.4 K/mm3 (4.5-10.0)
[2023-07-26 04:53] LABS: Anion Gap 4 mmol/L (8-16); Blood Urea Nitrogen 18 mg/dL (9-20); Calcium 9.6 mg/dL (8.4-10.2); Carbon Dioxide 28 mmol/L (22-30); Chloride 108 mmol/L (98-107); Estimated CRCL calculation 105 ml/min; Estimated Glomerular Filt Rate > 60; Glucose 106 mg/dL (65-110); Magnesium 1.9 mg/dL (1.6-2.3); Potassium 3.8 mmol/L (3.4-5.0); Sodium 140 mmol/L (137-145)
[2023-07-26 06:23] LABS: Glucose Point of Care 107 mg/dl (65-105)
[2023-07-26] MEDS: DEXTROSE 5%/0.45% SOD CHL 1,000 ML 100 ML IV CONT (09:10)
[2023-07-26] MEDS: levETIRAcetam IV 2,000 MG in DEXTROSE 5% 100 ML 480 MG IVPB (09:10)
[2023-07-26] MEDS: FAMOTIDINE 20 MG/2 ML VIAL IV PUSH (09:11)
--- NOTE | 2023-07-26 10:22 | PCNFU ---
Nutrition Follow-Up Complete: Inadequate energy intake related to NPO status, need for PEG tube as evidenced by need for full tube feeding goal: Meet estimated protein energy needs Tolerate tube feeding at goal rate Pt current nutrition is NPO. Last recorded weight is 69.6 kg, down from 70.7 kg on admit. Bowel Motility: +BM reported 07/26 Labs Reviewed: Cr 0.6,Hct 37.5,Hgb 12.1 Meds Noted:Keppra, Lopressor, Dextrose/Sodium Chloride. Skin: WNL Additional Notes: Patient is NPO. GI consult for tube feeding. Nursing reports tube feeding had been leaking, now tube is completely removed. When diet order advances recommend Jevity 1.5 at 50 ml/hr with flush 250 ml q 6 hours. Monitoring tube feeding tolerance, weights, labs, plan of care. Following daily in ICU rounds, reassess Tuesdays and Fridays
[2023-07-26 12:30] LABS: Glucose Point of Care 116 mg/dl (65-105)
--- NOTE | 2023-07-26 14:12 | PM.IMPN ---
Progress Note: A&P Assessment and Plan (1) Acute and chronic respiratory failure: Qualifiers: Respiratory failure complication: hypoxia Qualified Code(s): J96.21 - Acute and chronic respiratory failure with hypoxia Code(s): J96.20 - Acute and chronic respiratory failure, unspecified whether with hypoxia or hypercapnia Status: Acute Assessment and Plan: Patient was sent to the ED for dislodged trachea. Patient resides [facility] and reportedly the tracheostomy became dislodged and they were unable to replace it.? A 6.5 Shiley was placed in the ER.?The patient was admitted to medical floor. He subsequently desaturated and was transferred to ICU to be placed on mechanical ventilation.? CXR revealed a collapsed right lung likely due to mucus plugging. The patient has had increased secretions With suctioning and CPT, symptoms improved; less secretions now Able to wean settings Stable on trach collar. DuoNebs changed to p.r.n. (2) Tracheitis: Code(s): J04.10 - Acute tracheitis without obstruction Status: Acute Assessment and Plan: Sputum culture growing Pseudomonas essentially hanna-resistant. CXR showing no findings concerning for PNA. 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 Pseudomonas UTI was treated with Zosyn but now changed to Levaquin Secretions decreased. Completed abx. (3) Complication of tracheostomy tube: Code(s): J95.00 - Unspecified tracheostomy complication Status: Acute Assessment and Plan: Trach replaced. (4) Mucus plugging of bronchi: Code(s): T17.500A - Unspecified foreign body in bronchus causing asphyxiation, initial encounter Status: Acute Assessment and Plan: As above. Off abx and mucomyst (5) UTI (urinary tract infection) due to urinary indwelling catheter: Code(s): T83.511A - Infection and inflammatory reaction due to indwelling urethral catheter, initial encounter; N39.0 - Urinary tract infection, site not specified Status: Acute Assessment and Plan: Urine cultures growing Pseudomonas resistant to imipenem and meropenem so meropenem was switched to Zosyn.? Vancomycin discontinued on 07/12.? Changed to levaquin and completed a course. (6) Thrombocytopenia: Code(s): D69.6 - Thrombocytopenia, unspecified Status: Acute Assessment and Plan: Plt count normal on admission but dropped to 70K. Lovenox stopped [place] related to infection but has a hx of thrombocytopenia. Platelet count improved to normal. (7) DVT (deep venous thrombosis): Code(s): I82.409 - Acute embolism and thrombosis of unspecified deep veins of unspecified lower extremity Status: Acute Assessment and Plan: Left UE doppler showing DVT left subclavian, axillary and basilic veins. Spoke with his sister. Patient has no hx of GI bleeding, cerebral hemorrhage or other reasons not to be on anticoagulation. Eliquis started Remove PICC line at time of discharge (8) Cerebrovascular accident: Code(s): I63.9 - Cerebral infarction, unspecified Status: Acute Assessment and Plan: History of. Continue aspirin and Lipitor (9) Gastrojejunostomy tube dislodgement: Code(s): T85.528A - Displacement of other gastrointestinal prosthetic devices, implants and grafts, initial encounter Status: Acute Assessment and Plan: On 07/24 his gastrostomy tube was leaking. Tube feeding stopped. KUB unremarkable with a nonobstructive gas pattern. Keppra changed to IV. Pepcid changed to IV. Need to restart medications as soon as allowed by Gastroenterology which we are awaiting consult. Holding Eliquis as well in case he needs procedure done. Again this should be restarted as soon as possible. Plan FEN: Saline lock IV GI prophylaxis: Continue Pepcid DVT prophylaxis: Hold Eliquis. SCDs only. Lines: PICC line Code Status:
--- NOTE | 2023-07-26 16:16 | WPDGICN ---
Assessment and Plan Assessment and plan (1) Gastrojejunostomy tube dislodgement: Code(s): T85.528A - Displacement of other gastrointestinal prosthetic devices, implants and grafts, initial encounter Status: Acute Assessment and Plan: I advanced tip of GJ tube inside gastrostomy site and then balloon inflated with 8 ml water will order KUB to make sure that is in right position and then start tube feeding as usual (2) Cerebrovascular accident: Code(s): I63.9 - Cerebral infarction, unspecified Status: Acute Assessment and Plan: he needs assistance with ADL (3) Tracheitis: Code(s): J04.10 - Acute tracheitis without obstruction Status: Acute Assessment and Plan: treated (4) Complication of tracheostomy tube: Code(s): J95.00 - Unspecified tracheostomy complication Status: Acute Assessment and Plan: on admission and resolved (5) Mucus plugging of bronchi: Code(s): T17.500A - Unspecified foreign body in bronchus causing asphyxiation, initial encounter Status: Acute (6) UTI (urinary tract infection) due to urinary indwelling catheter: Code(s): T83.511A - Infection and inflammatory reaction due to indwelling urethral catheter, initial encounter; N39.0 - Urinary tract infection, site not specified Status: Acute Assessment and Plan: completed treatment (7) Acute and chronic respiratory failure: Qualifiers: Respiratory failure complication: hypoxia Qualified Code(s): J96.21 - Acute and chronic respiratory failure with hypoxia Code(s): J96.20 - Acute and chronic respiratory failure, unspecified whether with hypoxia or hypercapnia Status: Acute Assessment and Plan: stable GI Consult Note Consult date/time: 07/26/23 16:16 Reason for consult: gj tube dislodged HPI: Bi Tabor is a 63 year old male with history of stroke, chronic respiratory failure status post tracheostomy and GJ tube, seizure disorder, and dementia presented to the emergency department via EMS for evaluation of a dislodged trach 07/08/23 then brief stay in ICU because mucus plugging and lung collapse with pneumonia and tracheitis, treated and he has been back to floor. RN noted that GJ tube was not in right position (this has been replaced as needed at another hospital). History is obtained from records? Review of Systems Review of Systems: ROS unobtainable: Yes unobtainable due to endotracheal tube and unobtainable due to mental status [facility] Past Medical History Medical History (Updated 07/26/23 @ 14:14 by Jacquelyn Harrison MD) Benign prostatic hyperplasia Cerebrovascular accident Residual expressive aphasia and dysphagia. Chronic obstructive pulmonary disease Esophageal diverticulum Gastroparesis Iron deficiency anemia Seizure disorder Vascular dementia with psychotic disturbance Surgical History Surgical History History of left above knee amputation History of tracheostomy Family History Family History Other Unknown family medical history Social History Social History Social History: Surrogate medical decision maker: Adriane Hilliard, juliocesar. Code status: Full code. Smoking status: Unknown if ever smoked Alcohol intake: former Substance use: unknown Substance use type: does not use Lack of Transportation: No Lack of Food: Never True Current Housing: I Have Housing Concerned About Future Housing: No Difficulty Paying Gas/Electric Bills: No Difficulty Paying for Meds: No Currently Unemployed: No Education: Don't Know Difficulty w/ Childcare or Family Care: No Spiritual care concerns: No Meds Home Medications and Allergies Home Medications Medication Instructions Recorded Confirmed Type atorv
[2023-07-26] MEDS: guaiFENesin 200 MG/10 ML UDC 600 MG FEED TUBE ×2 (17:29→23:34)
--- NOTE | 2023-07-26 19:02 | PC.NURSE ---
On 07/26/23, license pending , provided care and completed [employer] documentation on this patient. I have reviewed the license pending documentation and agree with the findings.
[2023-07-26] MEDS: LACOSAMIDE (*CRX) 200 MG TABLET FEED TUBE (21:00)
[2023-07-26] MEDS: FAMOTIDINE 20 MG TABLET FEED TUBE (21:00)
[2023-07-26] MEDS: METOPROLOL TARTRATE 25 MG TABLET FEED TUBE (21:01)
[2023-07-26] MEDS: cloBAZam (*CRX) 10 MG TABLET FEED TUBE (21:02)
[2023-07-26] MEDS: ATORVASTATIN 40 MG TABLET FEED TUBE (21:03)
[2023-07-26] MEDS: CLOBAZAM 5 MG FEED TUBE (21:03)
[2023-07-26] MEDS: APIXABAN 5 MG TABLET PO (21:03)
[2023-07-26] MEDS: VALPROIC ACID LIQ 250 MG/5 ML ORAL SOLUTION UDC 500 MG PO (21:03)
[2023-07-26] MEDS: polyethylene glycoL 3350 17 GM POWD.PACK FEED TUBE (21:03)
[2023-07-26] MEDS: levETIRAcetam ORAL SOL 500 MG/5 ML UDC 2000 MG FEED TUBE (21:03)
[2023-07-26 23:51] LABS: Glucose Point of Care 98 mg/dl (65-105)
[2023-07-27 05:37] LABS: Hematocrit 37.6 % (42.0-52.0); Hemoglobin 11.8 g/dL (14.0-18.0); Mean Corpuscular HGB Conc 31.4 g/dl (32-36); Mean Corpuscular Hemoglobin 31.6 pg (26-34); Mean Corpuscular Volume 100.8 fl (80-100); Mean Platelet Volume 12.3 fl (7.4-10.4); Platelet Count Result 129 k/mm3 (150-375); Red Blood Count 3.73 M/mm3 (4.6-6.20); Red Cell Distribution Width 14.1 % (11.5-14.5); White Blood Count 5.7 K/mm3 (4.5-10.0)
[2023-07-27 05:50] LABS: Glucose Point of Care 87 mg/dl (65-105)
[2023-07-27 05:53] LABS: Anion Gap 5 mmol/L (8-16); Blood Urea Nitrogen 11 mg/dL (9-20); Calcium 9.4 mg/dL (8.4-10.2); Carbon Dioxide 25 mmol/L (22-30); Chloride 111 mmol/L (98-107); Estimated CRCL calculation 126 ml/min; Estimated Glomerular Filt Rate > 60; Glucose 91 mg/dL (65-110); Magnesium 1.8 mg/dL (1.6-2.3); Potassium 3.5 mmol/L (3.4-5.0); Sodium 141 mmol/L (137-145)
[2023-07-27] MEDS: CENTRAL LINE FLUSH 10 ML IV PUSH ×3 (06:08→20:16)
[2023-07-27 08:08] LABS: Glucose Point of Care 91 mg/dl (65-105)
[2023-07-27 08:25] VITALS: O2SAT 95
--- NOTE | 2023-07-27 09:09 | PM.IMPN ---
Progress Note: A&P Assessment and Plan (1) Acute and chronic respiratory failure: Qualifiers: Respiratory failure complication: hypoxia Qualified Code(s): J96.21 - Acute and chronic respiratory failure with hypoxia Code(s): J96.20 - Acute and chronic respiratory failure, unspecified whether with hypoxia or hypercapnia Status: Acute Assessment and Plan: Patient was sent to the ED for dislodged trachea. [facility] and reportedly the tracheostomy became dislodged and they were unable to replace it.? A 6.5 Shiley was placed in the ER.?The patient was admitted to medical floor. He subsequently desaturated and was transferred to ICU to be placed on mechanical ventilation.? CXR revealed a collapsed right lung likely due to mucus plugging. The patient has had increased secretions With suctioning and CPT, symptoms improved; less secretions now Able to wean settings Stable on trach collar. DuoNebs changed to p.r.n. (2) Tracheitis: Code(s): J04.10 - Acute tracheitis without obstruction Status: Acute Assessment and Plan: Sputum culture growing Pseudomonas essentially hanna-resistant. CXR showing no findings concerning for PNA. 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 Pseudomonas UTI was treated with Zosyn but now changed to Levaquin Secretions decreased. Completed abx. (3) Complication of tracheostomy tube: Code(s): J95.00 - Unspecified tracheostomy complication Status: Acute Assessment and Plan: Trach replaced. (4) Mucus plugging of bronchi: Code(s): T17.500A - Unspecified foreign body in bronchus causing asphyxiation, initial encounter Status: Acute Assessment and Plan: As above. Off abx and mucomyst (5) UTI (urinary tract infection) due to urinary indwelling catheter: Code(s): T83.511A - Infection and inflammatory reaction due to indwelling urethral catheter, initial encounter; N39.0 - Urinary tract infection, site not specified Status: Acute Assessment and Plan: Urine cultures growing Pseudomonas resistant to imipenem and meropenem so meropenem was switched to Zosyn.? Vancomycin discontinued on 07/12.? Changed to levaquin and completed a course. (6) Thrombocytopenia: Code(s): D69.6 - Thrombocytopenia, unspecified Status: Acute Assessment and Plan: Plt count normal on admission but dropped to 70K. Lovenox stopped [place] related to infection but has a hx of thrombocytopenia. Platelet count improved to normal. (7) DVT (deep venous thrombosis): Code(s): I82.409 - Acute embolism and thrombosis of unspecified deep veins of unspecified lower extremity Status: Acute Assessment and Plan: Left UE doppler showing DVT left subclavian, axillary and basilic veins. Spoke with his sister. Patient has no hx of GI bleeding, cerebral hemorrhage or other reasons not to be on anticoagulation. Eliquis started Remove PICC line at time of discharge (8) Cerebrovascular accident: Code(s): I63.9 - Cerebral infarction, unspecified Status: Acute Assessment and Plan: History of. Continue aspirin and Lipitor (9) Gastrojejunostomy tube dislodgement: Code(s): T85.528A - Displacement of other gastrointestinal prosthetic devices, implants and grafts, initial encounter Status: Acute Assessment and Plan: On 07/24 his gastrostomy tube was leaking. Tube feeding stopped. KUB unremarkable with a nonobstructive gas pattern. Keppra changed to IV. Pepcid changed to IV. Need to restart medications as soon as allowed by Gastroenterology, consult 07/26 with advancement of tube, tube feedings resumed. monitor, restart eliquis when able Plan FEN: Saline lock IV GI prophylaxis: Continue Pepcid DVT prophylaxis: Hold Eliquis. SCDs only for now--restart when able Lines: PICC line Code Status: Full code Dispo
[2023-07-27 11:51] LABS: Glucose Point of Care 136 mg/dl (65-105)
[2023-07-27 14:45] VITALS: BP 92/75; PULSE 70; RESP 20; TEMP 36.2; O2SAT 95
[2023-07-27 17:10] LABS: Glucose Point of Care 89 mg/dl (65-105)
--- NOTE | 2023-07-27 17:28 | WPDGIPROGNO ---
Progress Note: A&P Assessment and Plan (1) Gastrojejunostomy tube dislodgement: Code(s): T85.528A - Displacement of other gastrointestinal prosthetic devices, implants and grafts, initial encounter Status: Acute Assessment and Plan: noted that balloon has burst after trying to fill up again with saline, that is reason why is not staying in position nurse talked to family and normally GJ tube is exchanged at [facility] as needed(we do not carry that particular tube feeding)- recommend to transfer patient tomorrow, it that is not an option then we can replace with a regular g-tube in the meantime (2) Cerebrovascular accident: Code(s): I63.9 - Cerebral infarction, unspecified Status: Acute (3) Tracheitis: Code(s): J04.10 - Acute tracheitis without obstruction Status: Acute (4) 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 Review of Systems Review of Systems: All systems reviewed & are unremarkable except as noted in HPI and below Exam Const: General: comfortable and no acute distress Other: unable to get history HENMT: Face/Nose/Sinus: Normal nares present Other: trach in place Eyes: Sclera: sclerae normal Neck: Neck: supple Resp: Effort & Inspection: normal respiratory effort Auscultation: clear to auscultation bilaterally Cardio: Rate: regular rate Rhythm: regular rhythm GI: GI Palp: Yes Soft to palpation and No Tenderness to palpation present (GI) Auscultation: normal bowel sounds Other: balloon is deflated Skin: General skin exam: normal color Neuro: Other: aphasia Extrem: General: no edema Other: Left AKA Psych: Other: unable to assess Objective Data Vital Signs Vital Signs: Vital Signs - 24 hr 07/26/23 20:01 07/26/23 20:00 07/26/23 21:01 Temperature 97.6 F Pulse Rate 84 84 Respiratory Rate 18 Blood Pressure 145/74 H Pulse Oximetry 95 95 Oxygen Delivery Trach Collar Oxygen Flow Rate Fraction of Inspired Oxygen 07/27/23 08:25 07/27/23 08:00 07/27/23 14:45 Temperature 97.2 F L Pulse Rate 70 Respiratory Rate 20 Blood Pressure 92/75 L Pulse Oximetry 95 95 Oxygen Delivery High Flow Therapy with Tr Trach Collar Oxygen Flow Rate 30 Fraction of Inspired Oxygen 21 Intake/Output Intake/Output: Intake & Output 07/24/23 07/25/23 07/26/23 07/27/23 23:59 23:59 23:59 23:59 Intake Total 996 383 7797 Output Total 2600 650 750 625 Balance -2230 -410 1220 -598 Meds/Results Medications: Active Medications Generic Name Dose Route Start Last Admin Trade Name Freq PRN Reason Stop Dose Admin Acetaminophen 325 mg 07/24/23 15:54 07/25/23 21:53 Acetaminophen 325 Mg Suppository RECTAL 325 mg Q4H PRN Administration Mild Pain (1-3) or Fever Albuterol/Ipratropium 3 ml 07/22/23 13:43 07/22/23 13:08 Ipratropium 0.5 Mg/Albuterol Sulfate 2.5 Mg Ampul.Neb 3 Ml INHALATION 3 ml Q6HRT PRN Administration sob Apixaban 5 mg 07/26/23 09:00 07/27/23 11:42 Apixaban 5 Mg Tablet PO Not Given Q12HR TERRELL Artificial Tears 1 drop 07/08/23 21:38 Artificial Tears Ophth Soln 15 Ml Bottle EACH EYE 5 TIMES DAILY PRN Dry Eyes Aspirin 81 mg 07/09/23 09:00 07/27/23 16:56 Aspirin 81 Mg Chewable Tablet FEED TUBE Not Given DAILY TERRELL Atorvastatin Calcium 40 mg 07/08/23 21:50 07/26/23 21:03 Atorvastatin 40 Mg Tablet FEED TUBE 40 mg QHS TERRELL Administration Bisacodyl 10 mg 07/08/23 21:38 Bisacodyl 10 Mg Suppository RECTAL DAILY PRN Constipation Calcium Carbonate 400 mg
[2023-07-27 19:38] VITALS: BP 140/73; PULSE 72; RESP 17; TEMP 36.4; O2SAT 96
[2023-07-27 19:40] VITALS: O2SAT 96
[2023-07-27] MEDS: levETIRAcetam IV 2,000 MG in DEXTROSE 5% 100 ML 480 MG IVPB (20:25)
[2023-07-27 20:49] VITALS: PULSE 73; O2SAT 93
[2023-07-27 23:00] LABS: Glucose Point of Care 86 mg/dl (65-105)
[2023-07-28] VITALS (12 sets, daily range): BP systolic 128–138; BP diastolic 78–89; PULSE 71–88; RESP 16–18; TEMP 36.7–36.8; O2SAT 90–96
[2023-07-28 05:35] LABS: Basophils Percent Auto 0.6 % (0.2-1.2); Eosinophils Absolute Auto 0.3 K/mm3 (0-0.3); Eosinophils Percent Auto 5.9 % (0-4.4); Hematocrit 38.3 % (42.0-52.0); Hemoglobin 12.1 g/dL (14.0-18.0); Immature Granulocyte Absolute 0.01 K/mm3 (0.00-0.031); Immature Granulocyte Percent A 0.2 % (0-0.5); Lymphocytes Absolute Auto 2.33 K/mm3 (0.9-3.2); Lymphocytes Percent Auto 43.2 % (18.3-44.2); Mean Corpuscular HGB Conc 31.6 g/dl (32-36); Mean Corpuscular Hemoglobin 32.2 pg (26-34); Mean Corpuscular Volume 101.9 fl (80-100); Mean Platelet Volume 11.7 fl (7.4-10.4); Monocytes Absolute Auto 0.4 K/mm3 (0.1-0.6); Monocytes Percent Auto 7.4 % (2.6-8.5); Neutrophils Absolute Auto 2.3 K/mm3 (1.3-6.7); Neutrophils Percent Auto 42.7 % (45.5-73.1); Platelet Count Result 248 k/mm3 (150-375); Red Blood Count 3.76 M/mm3 (4.6-6.20); Red Cell Distribution Width 13.7 % (11.5-14.5); White Blood Count 5.4 K/mm3 (4.5-10.0)
[2023-07-28 05:45] LABS: Glucose Point of Care 87 mg/dl (65-105)
[2023-07-28 05:49] LABS: Alanine Aminotransferase 22 U/L (6-50); Albumin Level 3.5 g/dL (3.5-5.1); Alkaline Phosphatase 108 U/L (38-126); Anion Gap 4 mmol/L (8-16); Aspartate Amino Transferase 35 U/L (17-59); Bilirubin,Total 0.6 mg/dL (0.2-1.3); Blood Urea Nitrogen 11 mg/dL (9-20); Calcium 9.7 mg/dL (8.4-10.2); Carbon Dioxide 26 mmol/L (22-30); Chloride 110 mmol/L (98-107); Estimated CRCL calculation 126 ml/min; Estimated Glomerular Filt Rate > 60; Glucose 85 mg/dL (65-110); Potassium 3.6 mmol/L (3.4-5.0); Sodium 140 mmol/L (137-145)
[2023-07-28] MEDS: levETIRAcetam IV 2,000 MG in DEXTROSE 5% 100 ML 480 MG IVPB ×2 (08:48→21:25)
[2023-07-28] MEDS: guaiFENesin 200 MG/10 ML UDC 600 MG FEED TUBE ×3 (12:49→23:27)
[2023-07-28] MEDS: VALPROIC ACID LIQ 250 MG/5 ML ORAL SOLUTION UDC 500 MG PO ×3 (12:49→21:27)
[2023-07-28] MEDS: ASPIRIN 81 MG CHEWABLE TABLET FEED TUBE (12:50)
[2023-07-28] MEDS: cloBAZam (*CRX) 10 MG TABLET FEED TUBE ×2 (12:50→21:27)
[2023-07-28] MEDS: THIAMINE HCL 100 MG TABLET FEED TUBE (12:50)
[2023-07-28] MEDS: polyethylene glycoL 3350 17 GM POWD.PACK FEED TUBE ×2 (12:50→21:26)
[2023-07-28] MEDS: LACOSAMIDE (*CRX) 200 MG TABLET FEED TUBE ×2 (12:50→21:27)
[2023-07-28] MEDS: APIXABAN 5 MG TABLET PO ×2 (12:50→21:27)
[2023-07-28] MEDS: FOLIC ACID 1 MG TABLET FEED TUBE (12:50)
[2023-07-28] MEDS: METOPROLOL TARTRATE 25 MG TABLET FEED TUBE ×2 (12:50→21:28)
[2023-07-28] MEDS: FAMOTIDINE 20 MG TABLET FEED TUBE ×2 (12:50→21:27)
[2023-07-28] MEDS: CENTRAL LINE FLUSH 10 ML IV PUSH ×2 (12:51→21:28)
--- NOTE | 2023-07-28 14:19 | P.PNIM_ITS ---
Progress Note: A&P Assessment and Plan (1) Acute and chronic respiratory failure: Qualifiers: Respiratory failure complication: hypoxia Qualified Code(s): J96.21 - Acute and chronic respiratory failure with hypoxia Code(s): J96.20 - Acute and chronic respiratory failure, unspecified whether with hypoxia or hypercapnia Status: Acute Assessment and Plan: Patient was sent to the ED for dislodged trachea. Patient resides in group home and reportedly the tracheostomy became dislodged and they were unable to replace it.? A 6.5 Shiley was placed in the ER.?The patient was admitted to medical floor. He subsequently desaturated and was transferred to ICU to be placed on mechanical ventilation.? CXR revealed a collapsed right lung likely due to mucus plugging. The patient has had increased secretions. * With suctioning and CPT, symptoms improved; less secretions now * Stable on trach collar. * DuoNebs PRN (2) Tracheitis: Code(s): J04.10 - Acute tracheitis without obstruction Status: Acute Assessment and Plan: * Sputum culture growing Pseudomonas essentially hanna-resistant. * CXR showing no findings concerning for PNA. 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 * Pseudomonas UTI status post Levaquin (3) Complication of tracheostomy tube: Code(s): J95.00 - Unspecified tracheostomy complication Status: Resolved Assessment and Plan: * Trach replaced. (4) Mucus plugging of bronchi: Code(s): T17.500A - Unspecified foreign body in bronchus causing asphyxiation, initial encounter Status: Acute Assessment and Plan: * As above. * Off abx and mucomyst (5) UTI (urinary tract infection) due to urinary indwelling catheter: Code(s): T83.511A - Infection and inflammatory reaction due to indwelling urethral catheter, initial encounter; N39.0 - Urinary tract infection, site not specified Status: Acute Assessment and Plan: * Urine cultures growing Pseudomonas resistant to imipenem and meropenem * Vancomycin discontinued on 07/12.? * S/P levaquin (6) Thrombocytopenia: Code(s): D69.6 - Thrombocytopenia, unspecified Status: Resolved (7) DVT (deep venous thrombosis): Code(s): I82.409 - Acute embolism and thrombosis of unspecified deep veins of unspecified lower extremity Status: Acute Assessment and Plan: * Left UE doppler showing DVT left subclavian, axillary and basilic veins. * Spoke with his sister. Patient has no hx of GI bleeding, cerebral hemorrhage or other reasons not to be on anticoagulation. * Eliquis 5 mg BID * Remove PICC line at time of discharge (8) Cerebrovascular accident: Code(s): I63.9 - Cerebral infarction, unspecified Status: Chronic Assessment and Plan: * History of. * Continue aspirin and Lipitor (9) Gastrojejunostomy tube dislodgement: Code(s): T85.528A - Displacement of other gastrointestinal prosthetic devices, implants and grafts, initial encounter Status: Acute Assessment and Plan: * On 07/24 his gastrostomy tube was leaking. Tube feeding stopped. KUB unrema rkable with a nonobstructive gas pattern. * Gastroenterology replaced Gtube as family does not want transfer, although this is temporary fix. * tube feedings resumed. Plan FEN: Saline lock IV GI prophylaxis: Continue Pepcid DVT prophylaxis: Hold Eliquis. SCDs only for now--restart when able Lines: PICC line
--- NOTE | 2023-07-28 14:19 | PM.IMPN ---
Progress Note: A&P Assessment and Plan (1) Acute and chronic respiratory failure: Qualifiers: Respiratory failure complication: hypoxia Qualified Code(s): J96.21 - Acute and chronic respiratory failure with hypoxia Code(s): J96.20 - Acute and chronic respiratory failure, unspecified whether with hypoxia or hypercapnia Status: Acute Assessment and Plan: Patient was sent to the ED for dislodged trachea. Patient resides in [facility] and reportedly the tracheostomy became dislodged and they were unable to replace it.? A 6.5 Shiley was placed in the ER.?The patient was admitted to medical floor. He subsequently desaturated and was transferred to ICU to be placed on mechanical ventilation.? CXR revealed a collapsed right lung likely due to mucus plugging. The patient has had increased secretions. With suctioning and CPT, symptoms improved; less secretions now Stable on trach collar. DuoNebs PRN (2) Tracheitis: Code(s): J04.10 - Acute tracheitis without obstruction Status: Acute Assessment and Plan: Sputum culture growing Pseudomonas essentially hanna-resistant. CXR showing no findings concerning for PNA. 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 Pseudomonas UTI status post Levaquin (3) Complication of tracheostomy tube: Code(s): J95.00 - Unspecified tracheostomy complication Status: Resolved Assessment and Plan: Trach replaced. (4) Mucus plugging of bronchi: Code(s): T17.500A - Unspecified foreign body in bronchus causing asphyxiation, initial encounter Status: Acute Assessment and Plan: As above. Off abx and mucomyst (5) UTI (urinary tract infection) due to urinary indwelling catheter: Code(s): T83.511A - Infection and inflammatory reaction due to indwelling urethral catheter, initial encounter; N39.0 - Urinary tract infection, site not specified Status: Acute Assessment and Plan: Urine cultures growing Pseudomonas resistant to imipenem and meropenem Vancomycin discontinued on 07/12.? S/P levaquin (6) Thrombocytopenia: Code(s): D69.6 - Thrombocytopenia, unspecified Status: Resolved (7) DVT (deep venous thrombosis): Code(s): I82.409 - Acute embolism and thrombosis of unspecified deep veins of unspecified lower extremity Status: Acute Assessment and Plan: Left UE doppler showing DVT left subclavian, axillary and basilic veins. Spoke with his sister. Patient has no hx of GI bleeding, cerebral hemorrhage or other reasons not to be on anticoagulation. Eliquis 5 mg BID Remove PICC line at time of discharge (8) Cerebrovascular accident: Code(s): I63.9 - Cerebral infarction, unspecified Status: Chronic Assessment and Plan: History of. Continue aspirin and Lipitor (9) Gastrojejunostomy tube dislodgement: Code(s): T85.528A - Displacement of other gastrointestinal prosthetic devices, implants and grafts, initial encounter Status: Acute Assessment and Plan: On 07/24 his gastrostomy tube was leaking. Tube feeding stopped. KUB unremarkable with a nonobstructive gas pattern. Gastroenterology replaced Gtube as family does not want transfer, although this is temporary fix. tube feedings resumed. Plan FEN: Saline lock IV GI prophylaxis: Continue Pepcid DVT prophylaxis: Hold Eliquis. SCDs only for now--restart when able Lines: PICC line Code Status: Full code Dispo: Dispo pending with care coordination. They are working with [facility]. [facility] accepted him as he cannot go back to his original senior care facility. However, the POA refused for him to go there. Care coordination to continue arranging. Subjective Date/time seen: 07/28/23 14:19 Interval history: Patient in no acute distress this morning on exam. Denies SOB or chest pain. G tube was re
--- NOTE | 2023-07-28 15:30 | WPDGIPROGNO ---
Progress Note: A&P Assessment and Plan (1) Gastrojejunostomy tube dislodgement: Code(s): T85.528A - Displacement of other gastrointestinal prosthetic devices, implants and grafts, initial encounter Status: Acute Assessment and Plan: will proceed with bedside G tube placement family is aware then we can start tube feeding, continue with risk aspiration they will arrange GJ tube replacement at another time in [facility] (2) Cerebrovascular accident: Code(s): I63.9 - Cerebral infarction, unspecified Status: Chronic (3) Tracheitis: Code(s): J04.10 - Acute tracheitis without obstruction Status: Acute (4) Aphasia: Code(s): R47.01 - Aphasia Status: Chronic Subjective Date/time seen: 07/28/23 15:30 Interval history: I talked to family member over the phone and indicated that we do not carry GJ tube, she was ok to replace with G tube in the meantime so patient can be fed then she will schedule appointment at [facility] for GJ tube placement again (she says that reason of GJ was gastroparesis) Review of Systems Review of Systems: All systems reviewed & are unremarkable except as noted in HPI and below Exam Const: General: comfortable and no acute distress Other: unable to get history HENMT: Face/Nose/Sinus: Normal nares present Other: trach in place Eyes: Sclera: sclerae normal Neck: Neck: supple Resp: Effort & Inspection: normal respiratory effort Auscultation: clear to auscultation bilaterally Cardio: Rate: regular rate Rhythm: regular rhythm GI: GI Palp: Yes Soft to palpation and No Tenderness to palpation present (GI) Auscultation: normal bowel sounds Other: balloon is deflated Skin: General skin exam: normal color Neuro: Other: aphasia Extrem: General: no edema Other: Left AKA Psych: Other: unable to assess Objective Data Vital Signs Vital Signs: Vital Signs - 24 hr 07/27/23 19:38 07/27/23 19:40 07/27/23 20:49 Temperature 97.5 F L Pulse Rate 72 73 Respiratory Rate 17 Blood Pressure 140/73 Pulse Oximetry 96 96 93 Oxygen Delivery High Flow Therapy with Tr High Flow Therapy with Tr Oxygen Flow Rate 0 30 Fraction of Inspired Oxygen 21 07/28/23 02:48 07/28/23 05:08 07/28/23 08:50 Temperature 98.3 F Pulse Rate 71 Respiratory Rate 16 Blood Pressure 138/81 Pulse Oximetry 90 96 94 Oxygen Delivery High Flow Therapy with Tr High Flow Therapy with Tr Oxygen Flow Rate 30 30 Fraction of Inspired Oxygen 21 21 07/28/23 08:00 07/28/23 10:30 07/28/23 12:50 Temperature Pulse Rate 71 Respiratory Rate 16 Blood Pressure Pulse Oximetry 94 Oxygen Delivery Trach Collar Oxygen Flow Rate Fraction of Inspired Oxygen 07/28/23 13:58 07/28/23 14:44 Temperature 98.0 F Pulse Rate 84 Respiratory Rate 16 Blood Pressure 128/89 Pulse Oximetry 95 93 Oxygen Delivery High Flow Therapy with Tr Oxygen Flow Rate 30 Fraction of Inspired Oxygen 21 Intake/Output Intake/Output: Intake & Output 07/25/23 07/26/23 07/27/23 07/28/23 23:59 23:59 23:59 23:59 Intake Total 240 1970 120 0 Output Total 650 750 625 150 Balance -410 1220 -505 -150 Meds/Results Medications: Active Medications Generic Name Dose Route Start Last Admin Trade Name Sungq PRN Reason Stop Dose Admin Acetaminophen 325 mg 07/24/23 15:54 07/25/23 21:53 Acetaminophen 325 Mg Suppository RECTAL 325 mg Q4H PRN Administration Mild Pain (1-3) or Fever Albuterol/Ipratropium 3 ml 07/22/23 13:43 07/22/23 13:08 Ipratropium 0.5 Mg/Albuterol Sulfate 2.5 Mg Ampul.Neb 3 Ml INHALATION 3 ml Q6HRT PRN Administration sob Apixaban 5 mg 07/26/23 09:00 07/28/23 12:50 Apixaban 5 Mg Tablet PO 5 mg Q12HR TERRELL Administration Artificial Tears 1 drop 07/08/23 21:38 Artificial Tears Ophth Soln 15 Ml Bottle EACH EYE 5 TIMES DAILY PRN Dry Eyes Aspirin 8
--- NOTE | 2023-07-28 15:33 | W.PM.PROC2 ---
Procedure Note - Detailed Date of Procedure 07/28/23 Pre-op Diagnosis Pneumonia Post-op Diagnosis Same Procedure Performed replacement of G tube Surgeon Reggie Marc MD Anesthesia None Description of Procedure gj tube was removed and using same gastrostomy site I advanced 18 Fr G tube, then balloon inflated 6 mm with saline and secured at 3.5 cm. Will get XR to confirm adequate position and then start tube feeding per personal security specialist recommendation Urine Output 250
[2023-07-28 17:44] LABS: Glucose Point of Care 104 mg/dl (65-105)
[2023-07-28] MEDS: IPRATROPIUM 0.5 MG/ALBUTEROL SULFATE 2.5 MG AMPUL.NEB 3 ML INHALATION (20:53)
[2023-07-28] MEDS: ATORVASTATIN 40 MG TABLET FEED TUBE (21:27)
[2023-07-28] MEDS: CLOBAZAM 5 MG FEED TUBE (21:27)
[2023-07-28 22:22] LABS: Glucose Point of Care 105 mg/dl (65-105)
[2023-07-29] VITALS (13 sets, daily range): BP systolic 128–142; BP diastolic 67–85; PULSE 79–86; RESP 16–18; TEMP 36.3–36.8; O2SAT 95–100
[2023-07-29 01:00] LABS: Glucose Point of Care 106 mg/dl (65-105)
[2023-07-29 04:54] LABS: Glucose Point of Care 104 mg/dl (65-105)
[2023-07-29] MEDS: LANSOPRAZOLE ODT 30 MG TAB.RAP.DR FEED TUBE (04:54)
[2023-07-29] MEDS: guaiFENesin 200 MG/10 ML UDC 600 MG FEED TUBE ×3 (04:54→18:06)
[2023-07-29] MEDS: CENTRAL LINE FLUSH 10 ML IV PUSH ×3 (04:54→20:58)
[2023-07-29 05:35] LABS: Basophils Percent Auto 0.3 % (0.2-1.2); Eosinophils Absolute Auto 0.2 K/mm3 (0-0.3); Eosinophils Percent Auto 3.3 % (0-4.4); Hematocrit 37.7 % (42.0-52.0); Immature Granulocyte Absolute 0.01 K/mm3 (0.00-0.031); Immature Granulocyte Percent A 0.2 % (0-0.5); Lymphocytes Absolute Auto 2.83 K/mm3 (0.9-3.2); Lymphocytes Percent Auto 44.5 % (18.3-44.2); Mean Corpuscular HGB Conc 31.8 g/dl (32-36); Mean Corpuscular Hemoglobin 32.3 pg (26-34); Mean Corpuscular Volume 101.3 fl (80-100); Mean Platelet Volume 11.5 fl (7.4-10.4); Monocytes Absolute Auto 0.6 K/mm3 (0.1-0.6); Monocytes Percent Auto 9.4 % (2.6-8.5); Neutrophils Absolute Auto 2.7 K/mm3 (1.3-6.7); Neutrophils Percent Auto 42.3 % (45.5-73.1); Platelet Count Result 283 k/mm3 (150-375); Red Blood Count 3.72 M/mm3 (4.6-6.20); White Blood Count 6.4 K/mm3 (4.5-10.0)
[2023-07-29 05:45] LABS: Alanine Aminotransferase 22 U/L (6-50); Albumin Level 3.4 g/dL (3.5-5.1); Alkaline Phosphatase 106 U/L (38-126); Anion Gap 6 mmol/L (8-16); Aspartate Amino Transferase 31 U/L (17-59); Bilirubin,Total 0.3 mg/dL (0.2-1.3); Blood Urea Nitrogen 12 mg/dL (9-20); Carbon Dioxide 24 mmol/L (22-30); Chloride 109 mmol/L (98-107); Estimated CRCL calculation 125 ml/min; Estimated Glomerular Filt Rate > 60; Glucose 105 mg/dL (65-110); Potassium 3.3 mmol/L (3.4-5.0); Sodium 139 mmol/L (137-145)
[2023-07-29] MEDS: IPRATROPIUM 0.5 MG/ALBUTEROL SULFATE 2.5 MG AMPUL.NEB 3 ML INHALATION ×2 (09:38→15:51)
[2023-07-29] MEDS: LACOSAMIDE (*CRX) 200 MG TABLET FEED TUBE ×2 (10:25→20:56)
[2023-07-29] MEDS: THIAMINE HCL 100 MG TABLET FEED TUBE (10:25)
[2023-07-29] MEDS: cloBAZam (*CRX) 10 MG TABLET FEED TUBE ×2 (10:26→20:57)
[2023-07-29] MEDS: FOLIC ACID 1 MG TABLET FEED TUBE (10:26)
[2023-07-29] MEDS: FAMOTIDINE 20 MG TABLET FEED TUBE ×2 (10:26→20:56)
[2023-07-29] MEDS: APIXABAN 5 MG TABLET PO ×2 (10:26→20:56)
[2023-07-29] MEDS: METOPROLOL TARTRATE 25 MG TABLET FEED TUBE ×2 (10:26→20:57)
[2023-07-29] MEDS: ASPIRIN 81 MG CHEWABLE TABLET FEED TUBE (10:26)
[2023-07-29] MEDS: polyethylene glycoL 3350 17 GM POWD.PACK FEED TUBE ×2 (10:27→20:57)
[2023-07-29] MEDS: VALPROIC ACID LIQ 250 MG/5 ML ORAL SOLUTION UDC 500 MG PO ×4 (10:27→20:57)
[2023-07-29] MEDS: levETIRAcetam IV 2,000 MG in DEXTROSE 5% 100 ML 460 MG IVPB (10:57)
--- NOTE | 2023-07-29 11:43 | WPDGIPROGNO ---
Progress Note: A&P Assessment and Plan (1) Gastrojejunostomy tube dislodgement: Code(s): T85.528A - Displacement of other gastrointestinal prosthetic devices, implants and grafts, initial encounter Status: Acute Assessment and Plan: g-tube exchanged yesterday and working ok family will [facility] (2) Cerebrovascular accident: Code(s): I63.9 - Cerebral infarction, unspecified Status: Chronic (3) Tracheitis: Code(s): J04.10 - Acute tracheitis without obstruction Status: Acute (4) Aphasia: Code(s): R47.01 - Aphasia Status: Chronic Subjective Date/time seen: 07/29/23 11:43 Interval history: g-tube was placed yesterday at bedside instead of non functioning gj tube, he is tolerating feeding at 50 ml/h Review of Systems Review of Systems: All systems reviewed & are unremarkable except as noted in HPI and below Exam Const: General: comfortable and no acute distress Other: unable to get history HENMT: Face/Nose/Sinus: Normal nares present Other: trach in place Eyes: Sclera: sclerae normal Neck: Neck: supple Resp: Effort & Inspection: normal respiratory effort Auscultation: clear to auscultation bilaterally Cardio: Rate: regular rate Rhythm: regular rhythm GI: GI Palp: Yes Soft to palpation and No Tenderness to palpation present (GI) Auscultation: normal bowel sounds Other: G-tube in position Skin: General skin exam: normal color Neuro: Other: aphasia Extrem: General: no edema Other: Left AKA Psych: Other: unable to assess Objective Data Vital Signs Vital Signs: Vital Signs - 24 hr 07/28/23 12:50 07/28/23 13:58 07/28/23 14:44 Temperature 98.0 F Pulse Rate 71 84 Respiratory Rate 16 Blood Pressure 128/89 Pulse Oximetry 95 93 Oxygen Delivery High Flow Therapy with Tr Oxygen Flow Rate 30 Fraction of Inspired Oxygen 07/28/23 19:50 07/28/23 21:05 07/28/23 21:28 Temperature 98.0 F Pulse Rate 88 88 Respiratory Rate 16 Blood Pressure 132/78 Pulse Oximetry 93 96 Oxygen Delivery High Flow Therapy with Tr Oxygen Flow Rate 0 Fraction of Inspired Oxygen 07/29/23 00:45 07/28/23 20:55 07/28/23 20:53 Temperature 97.5 F L Pulse Rate 82 84 Respiratory Rate 18 18 Blood Pressure 128/67 Pulse Oximetry 96 94 Oxygen Delivery High Flow Therapy with Tr Oxygen Flow Rate 30 Fraction of Inspired Oxygen 07/28/23 21:05 07/29/23 08:33 07/29/23 09:39 Temperature 97.5 F L Pulse Rate 88 85 Respiratory Rate 18 17 Blood Pressure 131/74 Pulse Oximetry 97 96 Oxygen Delivery High Flow Therapy with Tr Oxygen Flow Rate 30 Fraction of Inspired Oxygen 07/29/23 09:39 07/29/23 09:55 07/29/23 10:26 Temperature Pulse Rate 86 82 82 Respiratory Rate 18 18 Blood Pressure Pulse Oximetry Oxygen Delivery Oxygen Flow Rate Fraction of Inspired Oxygen Intake/Output Intake/Output: Intake & Output 07/26/23 07/27/23 07/28/23 07/29/23 23:59 23:59 23:59 23:59 Intake Total 1970 120 240 850 Output Total 750 625 525 200 Balance 5550 -780 -349 650 Meds/Results Medications: Active Medications Generic Name Dose Route Start Last Admin Trade Name Freq PRN Reason Stop Dose Admin Acetaminophen 325 mg 07/24/23 15:54 07/25/23 21:53 Acetaminophen 325 Mg Suppository RECTAL 325 mg Q4H PRN Administration Mild Pain (1-3) or Fever Albuterol/Ipratropium 3 ml 07/22/23 13:43 07/29/23 09:38 Ipratropium 0.5 Mg/Albuterol Sulfate 2.5 Mg Ampul.Neb 3 Ml INHALATION 3 ml Q6HRT PRN Administration sob Apixaban 5 mg 07/26/23 09:00 07/29/23 10:26 Apixaban 5 Mg Tablet PO 5 mg Q12HR TERRELL Administration Artificial Tears 1 drop 07/08/23 21:38 Artificial Tears Ophth Soln 15 Ml Bottle EACH EYE 5 TIMES DAILY PRN Dry Eyes Aspirin 81 mg 07/09/23 09:00
--- NOTE | 2023-07-29 11:46 | PCNFU ---
Nutrition Follow-Up Complete: Inadequate energy intake related to NPO status, need for PEG tube as evidenced by need for full tube feeding Goal; Meet estimated protein energy needs Tolerate tube feeding at goal rate Patient has not not goal at this time. We will continue with current goal. Pt current nutrition is Jevity 1.5 at 50 ml/hr-on hold. Last recorded weight is 69.3 kg, down from 70.7 kg on admit. Bowel Motility: +BM reported Labs Reviewed:Cr 0.5,Alb 3.4,K 3.3 Meds Noted:Keppra, Lopressor, Miralax Skin: WNL Additional Notes: patient had G tube replaced . Plans to restart tube feedings of Jevity 1.5 at 50ml/hr. Flush 250 ml q 6 hours. Tube feedings providing 1650 kcals/70 gms protein/836 ml water. Agree with diet orders. Monitoring tube feeding tolerance, weights, labs, plan of care. Following daily in ICU rounds, reassess Tuesdays and Fridays
[2023-07-29 12:18] LABS: Glucose Point of Care 121 mg/dl (65-105)
--- NOTE | 2023-07-29 12:31 | P.PNIM_ITS ---
Progress Note: A&P Assessment and Plan (1) Acute and chronic respiratory failure: Qualifiers: Respiratory failure complication: hypoxia Qualified Code(s): J96.21 - Acute and chronic respiratory failure with hypoxia Code(s): J96.20 - Acute and chronic respiratory failure, unspecified whether with hypoxia or hypercapnia Status: Acute Assessment and Plan: * Stable on trach collar. * DuoNebs PRN (2) Tracheitis: Code(s): J04.10 - Acute tracheitis without obstruction Status: Acute Assessment and Plan: * Sputum culture growing Pseudomonas essentially hanna-resistant. * CXR showing no findings concerning for PNA. 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 * Pseudomonas UTI status post Levaquin (3) Complication of tracheostomy tube: Code(s): J95.00 - Unspecified tracheostomy complication Status: Resolved Assessment and Plan: * Trach replaced. (4) Mucus plugging of bronchi: Code(s): T17.500A - Unspecified foreign body in bronchus causing asphyxiation, initial encounter Status: Acute Assessment and Plan: * As above. * Off abx and mucomyst (5) UTI (urinary tract infection) due to urinary indwelling catheter: Code(s): T83.511A - Infection and inflammatory reaction due to indwelling urethral catheter, initial encounter; N39.0 - Urinary tract infection, site not specified Status: Acute Assessment and Plan: * Urine cultures growing Pseudomonas resistant to imipenem and meropenem * Vancomycin discontinued on 07/12.? * S/P levaquin (6) Thrombocytopenia: Code(s): D69.6 - Thrombocytopenia, unspecified Status: Resolved (7) DVT (deep venous thrombosis): Code(s): I82.409 - Acute embolism and thrombosis of unspecified deep veins of unspecified lower extremity Status: Acute Assessment and Plan: * Left UE doppler showing DVT left subclavian, axillary and basilic veins. * Spoke with his sister. Patient has no hx of GI bleeding, cerebral hemorrhage or other reasons not to be on anticoagulation. * Eliquis 5 mg BID * Remove PICC line at time of discharge (8) Cerebrovascular accident: Code(s): I63.9 - Cerebral infarction, unspecified Status: Chronic Assessment and Plan: * History of. * Continue aspirin and Lipitor (9) Gastrojejunostomy tube dislodgement: Code(s): T85.528A - Displacement of other gastrointestinal prosthetic devices, implants and grafts, initial encounter Status: Acute Assessment and Plan: * On 07/24 his gastrostomy tube was leaking. Tube feeding stopped. KUB unremarkable with a nonobstructive gas pattern. * Gastroenterology replaced Gtube as family does not want transfer, although this is temporary fix. * tube feedings resumed. Plan FEN: Saline lock IV GI prophylaxis: Continue Pepcid DVT prophylaxis: Eliquis. Lines: PICC line Code Status: Full code Dispo: Dispo pending with care coordination. They are working with [facility]. [facility] accepted him as he cannot go back to his original half-way facility. However, the POA refused for him to go there. Care coordination to continue arranging. Subjective Date/time seen: 07/29/23 12:31 Interval history: Patient in no acute distress this morning on exam. Denies SOB or chest pain. G tube was replaced by GI, tolerating tube feedings at 50 ml/hr. Family will arrange for other tube place
--- NOTE | 2023-07-29 12:31 | PM.IMPN ---
Progress Note: A&P Assessment and Plan (1) Acute and chronic respiratory failure: Qualifiers: Respiratory failure complication: hypoxia Qualified Code(s): J96.21 - Acute and chronic respiratory failure with hypoxia Code(s): J96.20 - Acute and chronic respiratory failure, unspecified whether with hypoxia or hypercapnia Status: Acute Assessment and Plan: Stable on trach collar. DuoNebs PRN (2) Tracheitis: Code(s): J04.10 - Acute tracheitis without obstruction Status: Acute Assessment and Plan: Sputum culture growing Pseudomonas essentially hanna-resistant. CXR showing no findings concerning for PNA. 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 Pseudomonas UTI status post Levaquin (3) Complication of tracheostomy tube: Code(s): J95.00 - Unspecified tracheostomy complication Status: Resolved Assessment and Plan: Trach replaced. (4) Mucus plugging of bronchi: Code(s): T17.500A - Unspecified foreign body in bronchus causing asphyxiation, initial encounter Status: Acute Assessment and Plan: As above. Off abx and mucomyst (5) UTI (urinary tract infection) due to urinary indwelling catheter: Code(s): T83.511A - Infection and inflammatory reaction due to indwelling urethral catheter, initial encounter; N39.0 - Urinary tract infection, site not specified Status: Acute Assessment and Plan: Urine cultures growing Pseudomonas resistant to imipenem and meropenem Vancomycin discontinued on 07/12.? S/P levaquin (6) Thrombocytopenia: Code(s): D69.6 - Thrombocytopenia, unspecified Status: Resolved (7) DVT (deep venous thrombosis): Code(s): I82.409 - Acute embolism and thrombosis of unspecified deep veins of unspecified lower extremity Status: Acute Assessment and Plan: Left UE doppler showing DVT left subclavian, axillary and basilic veins. Spoke with his sister. Patient has no hx of GI bleeding, cerebral hemorrhage or other reasons not to be on anticoagulation. Eliquis 5 mg BID Remove PICC line at time of discharge (8) Cerebrovascular accident: Code(s): I63.9 - Cerebral infarction, unspecified Status: Chronic Assessment and Plan: History of. Continue aspirin and Lipitor (9) Gastrojejunostomy tube dislodgement: Code(s): T85.528A - Displacement of other gastrointestinal prosthetic devices, implants and grafts, initial encounter Status: Acute Assessment and Plan: On 07/24 his gastrostomy tube was leaking. Tube feeding stopped. KUB unremarkable with a nonobstructive gas pattern. Gastroenterology replaced Gtube as family does not want transfer, although this is temporary fix. tube feedings resumed. Plan FEN: Saline lock IV GI prophylaxis: Continue Pepcid DVT prophylaxis: Eliquis. Lines: PICC line Code Status: Full code Dispo: Dispo pending with care coordination. They are working with [facility]. [facility] accepted him as he cannot go back to his original custodial facility. However, the POA refused for him to go there. Care coordination to continue arranging. Subjective Date/time seen: 07/29/23 12:31 Interval history: Patient in no acute distress this morning on exam. Denies SOB or chest pain. G tube was replaced by GI, tolerating tube feedings at 50 ml/hr. Family will arrange for other tube placement at [facility] after discharge. Will continue to monitor and await placement with care coordination following. Review of Systems Review of Systems: All systems reviewed & are unremarkable except as noted in HPI and below Exam Narrative: Gen: In no acute distress, sitting up in bed Neck - Trach midline Chest - coarse LS throughout, mild gurgling noted with attempts at speech CV - RRR Abd - Soft, ND, +BS, GTube site with dressing clean dry and intact
[2023-07-29] MEDS: POTASSIUM CHLORIDE 20 MEQ PACKET (FOR LIQUID) 40 MEQ FEED TUBE (13:01)
[2023-07-29 17:23] LABS: Glucose Point of Care 101 mg/dl (65-105)
[2023-07-29] MEDS: ATORVASTATIN 40 MG TABLET FEED TUBE (20:56)
[2023-07-29] MEDS: CLOBAZAM 5 MG FEED TUBE (20:56)
[2023-07-29] MEDS: levETIRAcetam IV 2,000 MG in DEXTROSE 5% 100 ML 480 MG IVPB (20:57)
[2023-07-30] VITALS (9 sets, daily range): BP systolic 121–147; BP diastolic 67–81; PULSE 70–96; RESP 16–18; TEMP 36.4–36.5; O2SAT 96–99
[2023-07-30] MEDS: guaiFENesin 200 MG/10 ML UDC 600 MG FEED TUBE ×5 (00:22→23:32)
[2023-07-30 00:25] LABS: Glucose Point of Care 122 mg/dl (65-105)
[2023-07-30] MEDS: CENTRAL LINE FLUSH 20 ML IV PUSH (05:09)
[2023-07-30] MEDS: CENTRAL LINE FLUSH 10 ML IV PUSH ×3 (05:18→21:24)
[2023-07-30 05:21] LABS: Basophils Percent Auto 0.5 % (0.2-1.2); Eosinophils Absolute Auto 0.3 K/mm3 (0-0.3); Eosinophils Percent Auto 4.4 % (0-4.4); Hematocrit 36.9 % (42.0-52.0); Hemoglobin 11.9 g/dL (14.0-18.0); Immature Granulocyte Absolute 0.01 K/mm3 (0.00-0.031); Immature Granulocyte Percent A 0.2 % (0-0.5); Lymphocytes Absolute Auto 2.41 K/mm3 (0.9-3.2); Lymphocytes Percent Auto 36.9 % (18.3-44.2); Mean Corpuscular HGB Conc 32.2 g/dl (32-36); Mean Corpuscular Hemoglobin 32.4 pg (26-34); Mean Corpuscular Volume 100.5 fl (80-100); Mean Platelet Volume 11.5 fl (7.4-10.4); Monocytes Absolute Auto 0.6 K/mm3 (0.1-0.6); Monocytes Percent Auto 8.7 % (2.6-8.5); Neutrophils Absolute Auto 3.2 K/mm3 (1.3-6.7); Neutrophils Percent Auto 49.3 % (45.5-73.1); Platelet Count Result 261 k/mm3 (150-375); Red Blood Count 3.67 M/mm3 (4.6-6.20); White Blood Count 6.5 K/mm3 (4.5-10.0)
[2023-07-30 05:30] LABS: Alanine Aminotransferase 17 U/L (6-50); Albumin Level 3.2 g/dL (3.5-5.1); Alkaline Phosphatase 99 U/L (38-126); Anion Gap 4 mmol/L (8-16); Aspartate Amino Transferase 23 U/L (17-59); Bilirubin,Total 0.2 mg/dL (0.2-1.3); Blood Urea Nitrogen 7 mg/dL (9-20); Calcium 8.9 mg/dL (8.4-10.2); Carbon Dioxide 27 mmol/L (22-30); Chloride 109 mmol/L (98-107); Estimated CRCL calculation 125 ml/min; Estimated Glomerular Filt Rate > 60; Glucose 100 mg/dL (65-110); Potassium 4.1 mmol/L (3.4-5.0); Sodium 140 mmol/L (137-145)
[2023-07-30] MEDS: LANSOPRAZOLE ODT 30 MG TAB.RAP.DR FEED TUBE (05:30)
[2023-07-30 05:47] LABS: Glucose Point of Care 101 mg/dl (65-105)
[2023-07-30 08:42] LABS: Glucose Point of Care 128 mg/dl (65-105)
[2023-07-30] MEDS: THIAMINE HCL 100 MG TABLET FEED TUBE (09:45)
[2023-07-30] MEDS: VALPROIC ACID LIQ 250 MG/5 ML ORAL SOLUTION UDC 500 MG PO ×4 (09:45→21:25)
[2023-07-30] MEDS: ASPIRIN 81 MG CHEWABLE TABLET FEED TUBE (09:45)
[2023-07-30] MEDS: levETIRAcetam IV 2,000 MG in DEXTROSE 5% 100 ML 460 MG IVPB ×2 (09:46→21:21)
[2023-07-30] MEDS: FOLIC ACID 1 MG TABLET FEED TUBE (09:46)
[2023-07-30] MEDS: APIXABAN 5 MG TABLET PO ×2 (09:46→21:25)
[2023-07-30] MEDS: LACOSAMIDE (*CRX) 200 MG TABLET FEED TUBE ×2 (09:46→21:25)
[2023-07-30] MEDS: FAMOTIDINE 20 MG TABLET FEED TUBE ×2 (09:46→21:25)
[2023-07-30] MEDS: METOPROLOL TARTRATE 25 MG TABLET FEED TUBE ×2 (09:47→21:25)
[2023-07-30 12:41] LABS: Glucose Point of Care 99 mg/dl (65-105)
[2023-07-30 17:19] LABS: Glucose Point of Care 100 mg/dl (65-105)
--- NOTE | 2023-07-30 17:50 | P.PNIM_ITS ---
Progress Note: A&P Assessment and Plan (1) Acute and chronic respiratory failure: Qualifiers: Respiratory failure complication: hypoxia Qualified Code(s): J96.21 - Acute and chronic respiratory failure with hypoxia Code(s): J96.20 - Acute and chronic respiratory failure, unspecified whether with hypoxia or hypercapnia Status: Acute Assessment and Plan: * Stable on trach collar. * DuoNebs PRN * Plan discharge back to facility / (earliest he can be accepted) (2) Tracheitis: Code(s): J04.10 - Acute tracheitis without obstruction Status: Acute Assessment and Plan: * Sputum culture growing Pseudomonas essentially hanna-resistant. * CXR showing no findings concerning for PNA. 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 * Pseudomonas UTI status post Levaquin (3) Complication of tracheostomy tube: Code(s): J95.00 - Unspecified tracheostomy complication Status: Resolved Assessment and Plan: * Trach replaced. (4) Mucus plugging of bronchi: Code(s): T17.500A - Unspecified foreign body in bronchus causing asphyxiation, initial encounter Status: Acute Assessment and Plan: * As above. * Off abx and mucomyst (5) UTI (urinary tract infection) due to urinary indwelling catheter: Code(s): T83.511A - Infection and inflammatory reaction due to indwelling urethral catheter, initial encounter; N39.0 - Urinary tract infection, site not specified Status: Acute Assessment and Plan: * Urine cultures growing Pseudomonas resistant to imipenem and meropenem * Vancomycin discontinued on 07/12.? * S/P levaquin (6) Thrombocytopenia: Code(s): D69.6 - Thrombocytopenia, unspecified Status: Resolved (7) DVT (deep venous thrombosis): Code(s): I82.409 - Acute embolism and thrombosis of unspecified deep veins of unspecified lower extremity Status: Acute Assessment and Plan: * Left UE doppler showing DVT left subclavian, axillary and basilic veins. * Spoke with his sister. Patient has no hx of GI bleeding, cerebral hemorrhage or other reasons not to be on anticoagulation. * Eliquis 5 mg BID * Remove PICC line at time of discharge (8) Cerebrovascular accident: Code(s): I63.9 - Cerebral infarction, unspecified Status: Chronic Assessment and Plan: * History of. * Continue aspirin and Lipitor (9) Gastrojejunostomy tube dislodgement: Code(s): T85.528A - Displacement of other gastrointestinal prosthetic devices, implants and grafts, initial encounter Status: Acute Assessment and Plan: * On 07/24 his gastrostomy tube was leaking. Tube feeding stopped. KUB unremarkable with a nonobstructive gas pattern. * Gastroenterology replaced Gtube as family does not want transfer, although this is temporary fix. * tube feedings resumed. Subjective Date/time seen: 07/30/23 17:50 Interval history: Tolerating tube feedings. Resting comfortably. Tries to speak but speech not intelligible. Review of Systems Review of Systems: ROS unobtainable: Yes unobtainable due to medical condition Exam Narrative: Gen: In no acute distress, lying in bed Neck - Trach midline Chest - coarse LS throughout, mild gurgling noted with attempts at speech CV - RRR. NL S1,2. No audible murmur. Abd - Soft, ND, +BS, GTube site with dressing clean dry and intact - Jensen secure
--- NOTE | 2023-07-30 17:50 | PM.IMPN ---
Progress Note: A&P Assessment and Plan (1) Acute and chronic respiratory failure: Qualifiers: Respiratory failure complication: hypoxia Qualified Code(s): J96.21 - Acute and chronic respiratory failure with hypoxia Code(s): J96.20 - Acute and chronic respiratory failure, unspecified whether with hypoxia or hypercapnia Status: Acute Assessment and Plan: Stable on trach collar. DuoNebs PRN Plan discharge back to facility 3/ (earliest he can be accepted) (2) Tracheitis: Code(s): J04.10 - Acute tracheitis without obstruction Status: Acute Assessment and Plan: Sputum culture growing Pseudomonas essentially hanna-resistant. CXR showing no findings concerning for PNA. 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 Pseudomonas UTI status post Levaquin (3) Complication of tracheostomy tube: Code(s): J95.00 - Unspecified tracheostomy complication Status: Resolved Assessment and Plan: Trach replaced. (4) Mucus plugging of bronchi: Code(s): T17.500A - Unspecified foreign body in bronchus causing asphyxiation, initial encounter Status: Acute Assessment and Plan: As above. Off abx and mucomyst (5) UTI (urinary tract infection) due to urinary indwelling catheter: Code(s): T83.511A - Infection and inflammatory reaction due to indwelling urethral catheter, initial encounter; N39.0 - Urinary tract infection, site not specified Status: Acute Assessment and Plan: Urine cultures growing Pseudomonas resistant to imipenem and meropenem Vancomycin discontinued on 07/12.? S/P levaquin (6) Thrombocytopenia: Code(s): D69.6 - Thrombocytopenia, unspecified Status: Resolved (7) DVT (deep venous thrombosis): Code(s): I82.409 - Acute embolism and thrombosis of unspecified deep veins of unspecified lower extremity Status: Acute Assessment and Plan: Left UE doppler showing DVT left subclavian, axillary and basilic veins. Spoke with his sister. Patient has no hx of GI bleeding, cerebral hemorrhage or other reasons not to be on anticoagulation. Eliquis 5 mg BID Remove PICC line at time of discharge (8) Cerebrovascular accident: Code(s): I63.9 - Cerebral infarction, unspecified Status: Chronic Assessment and Plan: History of. Continue aspirin and Lipitor (9) Gastrojejunostomy tube dislodgement: Code(s): T85.528A - Displacement of other gastrointestinal prosthetic devices, implants and grafts, initial encounter Status: Acute Assessment and Plan: On 07/24 his gastrostomy tube was leaking. Tube feeding stopped. KUB unremarkable with a nonobstructive gas pattern. Gastroenterology replaced Gtube as family does not want transfer, although this is temporary fix. tube feedings resumed. Subjective Date/time seen: 07/30/23 17:50 Interval history: Tolerating tube feedings. Resting comfortably. Tries to speak but speech not intelligible. Review of Systems Review of Systems: ROS unobtainable: Yes unobtainable due to medical condition Exam Narrative: Gen: In no acute distress, lying in bed Neck - Trach midline Chest - coarse LS throughout, mild gurgling noted with attempts at speech CV - RRR. NL S1,2. No audible murmur. Abd - Soft, ND, +BS, GTube site with dressing clean dry and intact - Jensen secured draining clear yellow urine Ext - left AKA; no RLE edema. Left UE edema noted Neuro - CN symmetric to inspection Psych - pleasant and cooperative Objective Data Vital Signs Vital Signs: Vital Signs - 24 hr 07/29/23 20:23 07/29/23 20:57 07/29/23 21:25 Temperature 98.2 F Pulse Rate 79 79 Respiratory Rate 16 Blood Pressure 138/71 Pulse Oximetry 100 96 Oxygen Delivery High Flow Therapy with Tr Oxygen Flow Rate 30 Fraction of Inspired Oxygen 07/29/23 2
[2023-07-30] MEDS: IPRATROPIUM 0.5 MG/ALBUTEROL SULFATE 2.5 MG AMPUL.NEB 3 ML INHALATION (20:48)
[2023-07-30] MEDS: ATORVASTATIN 40 MG TABLET FEED TUBE (21:25)
[2023-07-30] MEDS: polyethylene glycoL 3350 17 GM POWD.PACK FEED TUBE (21:25)
[2023-07-31] VITALS (13 sets, daily range): BP systolic 132–150; BP diastolic 75–83; PULSE 74–84; RESP 16–20; TEMP 36.6–36.7; O2SAT 96–99
[2023-07-31 00:09] LABS: Glucose Point of Care 105 mg/dl (65-105)
[2023-07-31] MEDS: CENTRAL LINE FLUSH 10 ML IV PUSH ×3 (05:33→21:19)
[2023-07-31] MEDS: LANSOPRAZOLE ODT 30 MG TAB.RAP.DR FEED TUBE (05:33)
[2023-07-31] MEDS: guaiFENesin 200 MG/10 ML UDC 600 MG FEED TUBE ×3 (05:33→18:00)
[2023-07-31] MEDS: CENTRAL LINE FLUSH 20 ML IV PUSH (05:34)
[2023-07-31 05:38] LABS: Basophils Percent Auto 0.2 % (0.2-1.2); Eosinophils Absolute Auto 0.3 K/mm3 (0-0.3); Eosinophils Percent Auto 5.3 % (0-4.4); Hematocrit 39.3 % (42.0-52.0); Hemoglobin 12.5 g/dL (14.0-18.0); Immature Granulocyte Absolute 0.01 K/mm3 (0.00-0.031); Immature Granulocyte Percent A 0.2 % (0-0.5); Lymphocytes Absolute Auto 2.52 K/mm3 (0.9-3.2); Lymphocytes Percent Auto 39.3 % (18.3-44.2); Mean Corpuscular HGB Conc 31.8 g/dl (32-36); Mean Corpuscular Hemoglobin 32.1 pg (26-34); Mean Corpuscular Volume 100.8 fl (80-100); Mean Platelet Volume 12.3 fl (7.4-10.4); Monocytes Absolute Auto 0.5 K/mm3 (0.1-0.6); Monocytes Percent Auto 8.4 % (2.6-8.5); Neutrophils Percent Auto 46.6 % (45.5-73.1); Platelet Count Result 229 k/mm3 (150-375); Red Cell Distribution Width 14.2 % (11.5-14.5); White Blood Count 6.4 K/mm3 (4.5-10.0)
[2023-07-31 05:38] LABS: Glucose Point of Care 102 mg/dl (65-105)
[2023-07-31 05:49] LABS: Alanine Aminotransferase 16 U/L (6-50); Albumin Level 3.4 g/dL (3.5-5.1); Alkaline Phosphatase 98 U/L (38-126); Anion Gap 2 mmol/L (8-16); Aspartate Amino Transferase 21 U/L (17-59); Bilirubin,Total 0.2 mg/dL (0.2-1.3); Blood Urea Nitrogen 7 mg/dL (9-20); Calcium 9.4 mg/dL (8.4-10.2); Carbon Dioxide 29 mmol/L (22-30); Chloride 110 mmol/L (98-107); Estimated CRCL calculation 133 ml/min; Estimated Glomerular Filt Rate > 60; Glucose 105 mg/dL (65-110); Potassium 4.3 mmol/L (3.4-5.0); Sodium 141 mmol/L (137-145)
[2023-07-31 09:01] LABS: Glucose Point of Care 111 mg/dl (65-105)
[2023-07-31] MEDS: METOPROLOL TARTRATE 25 MG TABLET FEED TUBE ×2 (09:58→21:18)
[2023-07-31] MEDS: FOLIC ACID 1 MG TABLET FEED TUBE (09:58)
[2023-07-31] MEDS: VALPROIC ACID LIQ 250 MG/5 ML ORAL SOLUTION UDC 500 MG PO ×4 (09:58→21:19)
[2023-07-31] MEDS: ASPIRIN 81 MG CHEWABLE TABLET FEED TUBE (09:58)
[2023-07-31] MEDS: APIXABAN 5 MG TABLET PO ×2 (09:58→21:18)
[2023-07-31] MEDS: THIAMINE HCL 100 MG TABLET FEED TUBE (09:58)
[2023-07-31] MEDS: LACOSAMIDE (*CRX) 200 MG TABLET FEED TUBE ×2 (09:58→21:18)
[2023-07-31] MEDS: FAMOTIDINE 20 MG TABLET FEED TUBE ×2 (09:58→21:18)
[2023-07-31] MEDS: polyethylene glycoL 3350 17 GM POWD.PACK FEED TUBE ×2 (09:59→21:19)
[2023-07-31] MEDS: levETIRAcetam IV 2,000 MG in DEXTROSE 5% 100 ML 480 MG IVPB ×2 (10:01→21:18)
[2023-07-31 12:01] LABS: Glucose Point of Care 111 mg/dl (65-105)
--- NOTE | 2023-07-31 13:45 | P.PNIM_ITS ---
Progress Note: A&P Assessment and Plan (1) Acute and chronic respiratory failure: Qualifiers: Respiratory failure complication: hypoxia Qualified Code(s): J96.21 - Acute and chronic respiratory failure with hypoxia Code(s): J96.20 - Acute and chronic respiratory failure, unspecified whether with hypoxia or hypercapnia Status: Acute Assessment and Plan: * Stable on trach collar. * DuoNebs PRN * Plan discharge back to facility 07/31 (earliest he can be accepted) (2) Tracheitis: Code(s): J04.10 - Acute tracheitis without obstruction Status: Acute Assessment and Plan: * Sputum culture growing Pseudomonas essentially hanna-resistant. * CXR showing no findings concerning for PNA. 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 * Pseudomonas UTI status post Levaquin (3) Complication of tracheostomy tube: Code(s): J95.00 - Unspecified tracheostomy complication Status: Resolved Assessment and Plan: * Trach replaced. (4) Mucus plugging of bronchi: Code(s): T17.500A - Unspecified foreign body in bronchus causing asphyxiation, initial encounter Status: Acute Assessment and Plan: * As above. * Off abx and mucomyst (5) UTI (urinary tract infection) due to urinary indwelling catheter: Code(s): T83.511A - Infection and inflammatory reaction due to indwelling urethral catheter, initial encounter; N39.0 - Urinary tract infection, site not specified Status: Acute Assessment and Plan: * Urine cultures growing Pseudomonas resistant to imipenem and meropenem * Vancomycin discontinued on 07/12.? * Completed course of Levaquin (6) Thrombocytopenia: Code(s): D69.6 - Thrombocytopenia, unspecified Status: Resolved Assessment and Plan: Resolved 07/30 plt 229k (7) DVT (deep venous thrombosis): Code(s): I82.409 - Acute embolism and thrombosis of unspecified deep veins of unspecified lower extremity Status: Acute Assessment and Plan: * Left UE doppler showing DVT left subclavian, axillary and basilic veins. * No hx of GI bleeding, cerebral hemorrhage or other reasons not to be on anticoagulation. * Eliquis 5 mg BID * Remove PICC line at discharge (8) Cerebrovascular accident: Code(s): I63.9 - Cerebral infarction, unspecified Status: Chronic Assessment and Plan: * History of. * Continue aspirin and Lipitor (9) Gastrojejunostomy tube dislodgement: Code(s): T85.528A - Displacement of other gastrointestinal prosthetic devices, implants and grafts, initial encounter Status: Acute Assessment and Plan: * On 07/24 his gastrostomy tube was leaking. Tube feeding stopped. KUB unremarkable with a nonobstructive gas pattern. * Gastroenterology replaced Gtube as family does not want transfer, although this is temporary fix. * tube feedings resumed. * [facility] ([facility]) for permanent replacement of G-tube. Subjective Date/time seen: 07/31/23 13:45 Interval history: Tolerating tube feedings. Resting comfortably. Tries to speak but speech not intelligible. Review of Systems Review of Systems: ROS unobtainable: Yes other ( tracheostomy) Exam Narrative: Gen: In no acute distress, lying in bed Neck - Trach midline Chest - coarse LS throughout, mild gurgling noted with attempts at speech CV - RR
--- NOTE | 2023-07-31 13:45 | PM.IMPN ---
Progress Note: A&P Assessment and Plan (1) Acute and chronic respiratory failure: Qualifiers: Respiratory failure complication: hypoxia Qualified Code(s): J96.21 - Acute and chronic respiratory failure with hypoxia Code(s): J96.20 - Acute and chronic respiratory failure, unspecified whether with hypoxia or hypercapnia Status: Acute Assessment and Plan: Stable on trach collar. DuoNebs PRN Plan discharge back to facility / (earliest he can be accepted) (2) Tracheitis: Code(s): J04.10 - Acute tracheitis without obstruction Status: Acute Assessment and Plan: Sputum culture growing Pseudomonas essentially hanna-resistant. CXR showing no findings concerning for PNA. 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 Pseudomonas UTI status post Levaquin (3) Complication of tracheostomy tube: Code(s): J95.00 - Unspecified tracheostomy complication Status: Resolved Assessment and Plan: Trach replaced. (4) Mucus plugging of bronchi: Code(s): T17.500A - Unspecified foreign body in bronchus causing asphyxiation, initial encounter Status: Acute Assessment and Plan: As above. Off abx and mucomyst (5) UTI (urinary tract infection) due to urinary indwelling catheter: Code(s): T83.511A - Infection and inflammatory reaction due to indwelling urethral catheter, initial encounter; N39.0 - Urinary tract infection, site not specified Status: Acute Assessment and Plan: Urine cultures growing Pseudomonas resistant to imipenem and meropenem Vancomycin discontinued on 07/12.? Completed course of Levaquin (6) Thrombocytopenia: Code(s): D69.6 - Thrombocytopenia, unspecified Status: Resolved Assessment and Plan: Resolved 07/30 plt 229k (7) DVT (deep venous thrombosis): Code(s): I82.409 - Acute embolism and thrombosis of unspecified deep veins of unspecified lower extremity Status: Acute Assessment and Plan: Left UE doppler showing DVT left subclavian, axillary and basilic veins. No hx of GI bleeding, cerebral hemorrhage or other reasons not to be on anticoagulation. Eliquis 5 mg BID Remove PICC line at discharge (8) Cerebrovascular accident: Code(s): I63.9 - Cerebral infarction, unspecified Status: Chronic Assessment and Plan: History of. Continue aspirin and Lipitor (9) Gastrojejunostomy tube dislodgement: Code(s): T85.528A - Displacement of other gastrointestinal prosthetic devices, implants and grafts, initial encounter Status: Acute Assessment and Plan: On 07/24 his gastrostomy tube was leaking. Tube feeding stopped. KUB unremarkable with a nonobstructive gas pattern. Gastroenterology replaced Gtube as family does not want transfer, although this is temporary fix. tube feedings resumed. Will need to be evaluated at [facility] (his surgeons are there) for permanent replacement of G-tube. Subjective Date/time seen: 07/31/23 13:45 Interval history: Tolerating tube feedings. Resting comfortably. Tries to speak but speech not intelligible. Review of Systems Review of Systems: ROS unobtainable: Yes other ( tracheostomy) Exam Narrative: Gen: In no acute distress, lying in bed Neck - Trach midline Chest - coarse LS throughout, mild gurgling noted with attempts at speech CV - RRR. NL S1,2. No audible murmur. Abd - Soft, ND, +BS, GTube site with dressing clean dry and intact - Jensen secured draining clear yellow urine Ext - left AKA; no RLE edema. Left UE edema noted Neuro - CN symmetric to inspection Psych - pleasant and cooperative Objective Data Vital Signs Vital Signs: Vital Signs - 24 hr 07/30/23 16:00 07/30/23 20:47 07/30/23 20:52 Temperature 97.6 F 97.7 F Pulse Rate 70 71 73 Respiratory Rate 17 16 18 Blood Pressure 138/72 121/67 Pulse Oximetry 99
--- NOTE | 2023-07-31 16:15 | WPDCN ---
Assessment and Plan Assessment and plan (1) Tracheostomy complication: Code(s): J95.00 - Unspecified tracheostomy complication Status: Acute Assessment and Plan: trach replaced please keep the trach ties very very tight no more than 2 finger should ever be able to fit underneath them. HPI Data of Consult Date/Time: 07/31/23 16:15 Requesting Physician: Zeferino Morfin MD Primary Care Provider: Burke Restrepo, Consult Narrative Narrative: Bi Tabor is a 63 year old male was not necessarily trach dependent but who I believe use trach or has the trach used for pulmonary toilet. Patient removed the trach. Review of Systems Review of Systems: All systems reviewed & are unremarkable except as noted in HPI and below PMFSH Past Medical History Medical History (Updated 07/28/23 @ 14:33 by Denise Lloyd APRN) Benign prostatic hyperplasia Cerebrovascular accident Residual expressive aphasia and dysphagia. Chronic obstructive pulmonary disease Esophageal diverticulum Gastroparesis Iron deficiency anemia Seizure disorder Vascular dementia with psychotic disturbance Surgical History Surgical History History of left above knee amputation History of tracheostomy Family History Family History Other Unknown family medical history Social History Social History Social History: Surrogate medical decision maker: Adriane Babak, sibling. Code status: Full code. Smoking status: Unknown if ever smoked Alcohol intake: former Substance use: unknown Substance use type: does not use Lack of Transportation: No Lack of Food: Never True Current Housing: I Have Housing Concerned About Future Housing: No Difficulty Paying Gas/Electric Bills: No Difficulty Paying for Meds: No Currently Unemployed: No Education: Don't Know Difficulty w/ Childcare or Family Care: No Spiritual care concerns: No Meds Home Medications and Allergies Home Medications Medication Instructions Recorded Confirmed Type atorvastatin 40 mg tablet 40 mg feeding tube QHS 11/14/22 07/08/23 History folic acid 1 mg tablet 1 mg feeding tube DAILY 11/14/22 07/08/23 History lacosamide 200 mg tablet 200 mg feeding tube Q12H 11/14/22 07/08/23 History aspirin 81 mg chewable tablet 81 mg feeding tube DAILY 11/15/22 07/08/23 History metoprolol tartrate 25 mg tablet 25 mg feeding tube Q12H 12/18/22 07/08/23 History polyethylene glycol 3350 17 17 g feeding tube Q12H 12/18/22 07/08/23 History gram/dose oral powder bisacodyl 10 mg rectal suppository 10 mg RECTAL DAILY PRN Constipation 02/11/23 07/08/23 History magnesium hydroxide 400 mg/5 mL 30 ml feeding tube HS PRN 02/11/23 07/08/23 History oral suspension (Milk of Magnesia) Constipation sennosides 8.6 mg tablet (senna) 8.6 mg feeding tube HS PRN 02/11/23 07/08/23 History Constipation sodium phosphates 19 gram-7 197 ml RECTAL ONCE 02/11/23 07/08/23 History gram/118 mL enema (Fleet Enema) thiamine HCl (vitamin B1) 100 mg 100 mg feeding tube DAILY 02/11/23 07/08/23 History tablet clobazam 10 mg tablet 15 mg feeding tube HS 03/21/23 07/08/23 History famotidine 20 mg tablet 20 mg feeding tube Q12H 03/21/23 07/08/23 History levetiracetam 100 mg/mL oral 2,000 mg feeding tube Q12H 03/21/23 07/08/23 History solution (Keppra) peg [id number] 1 1 drp EACH EYE 4-6XD PRN Dry Eyes 03/21/23 07/08/23 History %-0.2 %-0.2 % eye drops (Artificial Tears ([id number])) valproic acid (as sodium salt) 250 500 mg PO QID 03/21/23 07/08/23 History mg/5 mL oral solution calcium carbonate 500 mg/5 mL 1,250 mg feeding tube Q6H PRN 07/08/23 07/08/23 History calcium (1,250 mg/5 mL) oral Heartburn suspension clobazam 10 mg tablet 10 mg feedi
--- NOTE | 2023-07-31 16:16 | WPDPROCEDUR ---
Procedures Other Procedures Procedure 1: Other Procedure: Trach replacement with tracheoscopy. Verbal consent obtained. Patient same trach with obturator was replaced no complications. Trach ties firmly placed well placed snugly. Tracheoscopy then performed trach is in the airway normal appearing airway distal to the trach.
[2023-07-31 18:11] LABS: Glucose Point of Care 98 mg/dl (65-105)
[2023-07-31] MEDS: ATORVASTATIN 40 MG TABLET FEED TUBE (21:18)
--- NOTE | 2023-07-31 23:45 | PC.NURSE ---
Pt suctioned at 21:20
[2023-08-01] VITALS (10 sets, daily range): BP systolic 127–145; BP diastolic 67–71; PULSE 62–79; RESP 17–20; TEMP 36.4–36.7; O2SAT 92–100
[2023-08-01] LABS: Glucose Point of Care 110 mg/dl (65-105)
[2023-08-01] MEDS: guaiFENesin 200 MG/10 ML UDC 600 MG FEED TUBE ×3 (00:29→12:29)
[2023-08-01] MEDS: LANSOPRAZOLE ODT 30 MG TAB.RAP.DR FEED TUBE (05:16)
[2023-08-01] MEDS: CENTRAL LINE FLUSH 10 ML IV PUSH (05:16)
[2023-08-01 05:41] LABS: Glucose Point of Care 118 mg/dl (65-105)
[2023-08-01 06:27] LABS: Basophils Percent Auto 0.2 % (0.2-1.2); Eosinophils Absolute Auto 0.3 K/mm3 (0-0.3); Eosinophils Percent Auto 4.5 % (0-4.4); Hemoglobin 12.5 g/dL (14.0-18.0); Immature Granulocyte Absolute 0.01 K/mm3 (0.00-0.031); Immature Granulocyte Percent A 0.2 % (0-0.5); Lymphocytes Absolute Auto 2.95 K/mm3 (0.9-3.2); Lymphocytes Percent Auto 47.3 % (18.3-44.2); Mean Corpuscular HGB Conc 31.3 g/dl (32-36); Mean Corpuscular Hemoglobin 32.1 pg (26-34); Mean Corpuscular Volume 102.6 fl (80-100); Mean Platelet Volume 12.1 fl (7.4-10.4); Monocytes Absolute Auto 0.6 K/mm3 (0.1-0.6); Monocytes Percent Auto 9.1 % (2.6-8.5); Neutrophils Absolute Auto 2.4 K/mm3 (1.3-6.7); Neutrophils Percent Auto 38.7 % (45.5-73.1); Platelet Count Result 227 k/mm3 (150-375); Red Cell Distribution Width 14.1 % (11.5-14.5); White Blood Count 6.2 K/mm3 (4.5-10.0)
[2023-08-01 06:44] LABS: Alanine Aminotransferase 14 U/L (6-50); Albumin Level 3.4 g/dL (3.5-5.1); Alkaline Phosphatase 95 U/L (38-126); Anion Gap 5 mmol/L (8-16); Aspartate Amino Transferase 22 U/L (17-59); Bilirubin,Total 0.3 mg/dL (0.2-1.3); Blood Urea Nitrogen 8 mg/dL (9-20); Calcium 9.2 mg/dL (8.4-10.2); Carbon Dioxide 27 mmol/L (22-30); Chloride 107 mmol/L (98-107); Estimated CRCL calculation 133 ml/min; Estimated Glomerular Filt Rate > 60; Glucose 99 mg/dL (65-110); Potassium 4.2 mmol/L (3.4-5.0); Sodium 139 mmol/L (137-145)
[2023-08-01] MEDS: THIAMINE HCL 100 MG TABLET FEED TUBE (09:34)
[2023-08-01] MEDS: ASPIRIN 81 MG CHEWABLE TABLET FEED TUBE (09:34)
[2023-08-01] MEDS: LACOSAMIDE (*CRX) 200 MG TABLET FEED TUBE (09:34)
[2023-08-01] MEDS: VALPROIC ACID LIQ 250 MG/5 ML ORAL SOLUTION UDC 500 MG PO ×2 (09:34→12:29)
[2023-08-01] MEDS: APIXABAN 5 MG TABLET PO (09:34)
[2023-08-01] MEDS: FOLIC ACID 1 MG TABLET FEED TUBE (09:35)
[2023-08-01] MEDS: FAMOTIDINE 20 MG TABLET FEED TUBE (09:35)
[2023-08-01] MEDS: METOPROLOL TARTRATE 25 MG TABLET FEED TUBE (09:35)
[2023-08-01] MEDS: polyethylene glycoL 3350 17 GM POWD.PACK FEED TUBE (09:36)
[2023-08-01] MEDS: levETIRAcetam IV 2,000 MG in DEXTROSE 5% 100 ML 480 MG IVPB (09:44)
[2023-08-01 11:50] LABS: SARS-CoV-2 RNA PCR Negative (Negative)
[2023-08-01 11:59] LABS: Glucose Point of Care 112 mg/dl (65-105)
--- NOTE | 2023-08-01 13:44 | P.DS_ITS ---
DS: Admitting Diagnosis Discharge Date 08/01/23 Admitting Diagnosis dislodged trach DS: Discharge Diagnosis Discharge Diagnosis (1) Acute and chronic respiratory failure: Qualifiers: Respiratory failure complication: hypoxia Qualified Code(s): J96.21 - Acute and chronic respiratory failure with hypoxia Code(s): J96.20 - Acute and chronic respiratory failure, unspecified whether with hypoxia or hypercapnia Status: Acute Assessment and Plan: * Stable on trach collar. * DuoNebs PRN (2) Tracheitis: Code(s): J04.10 - Acute tracheitis without obstruction Status: Acute Assessment and Plan: * Sputum culture growing Pseudomonas essentially hanna-resistant. * CXR showing no findings concerning for PNA. 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 * Pseudomonas UTI status post Levaquin (3) Complication of tracheostomy tube: Code(s): J95.00 - Unspecified tracheostomy complication Status: Resolved Assessment and Plan: * Trach replaced. (4) Mucus plugging of bronchi: Code(s): T17.500A - Unspecified foreign body in bronchus causing asphyxiation, initial encounter Status: Resolved Assessment and Plan: * As above. * Off abx and mucomyst (5) UTI (urinary tract infection) due to urinary indwelling catheter: Code(s): T83.511A - Infection and inflammatory reaction due to indwelling urethral catheter, initial encounter; N39.0 - Urinary tract infection, site not specified Status: Resolved Assessment and Plan: * Urine cultures growing Pseudomonas resistant to imipenem and meropenem * Vancomycin discontinued on 07/12.? * Completed course of Levaquin (6) Thrombocytopenia: Code(s): D69.6 - Thrombocytopenia, unspecified Status: Resolved Assessment and Plan: Resolved 07/30 plt 229k (7) DVT (deep venous thrombosis): Code(s): I82.409 - Acute embolism and thrombosis of unspecified deep veins of unspecified lower extremity Status: Acute Assessment and Plan: * Left UE doppler showing DVT left subclavian, axillary and basilic veins. * No hx of GI bleeding, cerebral hemorrhage or other reasons not to be on anticoagulation. * Eliquis 5 mg BID * Remove PICC line at discharge (8) Cerebrovascular accident: Code(s): I63.9 - Cerebral infarction, unspecified Status: Chronic Assessment and Plan: * History of. * Continue aspirin and Lipitor (9) Gastrojejunostomy tube dislodgement: Code(s): T85.528A - Displacement of other gastrointestinal prosthetic devices, implants and grafts, initial encounter Status: Acute Assessment and Plan: * On 07/24 his gastrostomy tube was leaking. Tube feeding stopped. KUB unremarkable with a nonobstructive gas pattern. * Gastroenterology replaced Gtube as family does not want transfer, although this is temporary fix. * tube feedings resumed. * Will need to be evaluated at [facility] (his surgeons are there) for permanent replacement of G-tube. DS: Summary Hospital Course Hospital Course: Patient is a 63-year-old male with PMH of stroke, chronic respiratory failure status post tracheostomy and PEG tube, seizure disorder, and dementia admitted for a dislodged trach. ED physician was able to replace the trach without issue. Thereafter he had a lot of upper airway rhonchi and seemed to be having difficulties clearing out mucus. Chest x-ray showed the tracheostomy was in
--- NOTE | 2023-08-01 13:44 | PM.DS ---
DS: Admitting Diagnosis Discharge Date 08/01/23 Admitting Diagnosis dislodged trach DS: Discharge Diagnosis Discharge Diagnosis (1) Acute and chronic respiratory failure: Qualifiers: Respiratory failure complication: hypoxia Qualified Code(s): J96.21 - Acute and chronic respiratory failure with hypoxia Code(s): J96.20 - Acute and chronic respiratory failure, unspecified whether with hypoxia or hypercapnia Status: Acute Assessment and Plan: Stable on trach collar. DuoNebs PRN (2) Tracheitis: Code(s): J04.10 - Acute tracheitis without obstruction Status: Acute Assessment and Plan: Sputum culture growing Pseudomonas essentially hanna-resistant. CXR showing no findings concerning for PNA. 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 Pseudomonas UTI status post Levaquin (3) Complication of tracheostomy tube: Code(s): J95.00 - Unspecified tracheostomy complication Status: Resolved Assessment and Plan: Trach replaced. (4) Mucus plugging of bronchi: Code(s): T17.500A - Unspecified foreign body in bronchus causing asphyxiation, initial encounter Status: Resolved Assessment and Plan: As above. Off abx and mucomyst (5) UTI (urinary tract infection) due to urinary indwelling catheter: Code(s): T83.511A - Infection and inflammatory reaction due to indwelling urethral catheter, initial encounter; N39.0 - Urinary tract infection, site not specified Status: Resolved Assessment and Plan: Urine cultures growing Pseudomonas resistant to imipenem and meropenem Vancomycin discontinued on 07/12.? Completed course of Levaquin (6) Thrombocytopenia: Code(s): D69.6 - Thrombocytopenia, unspecified Status: Resolved Assessment and Plan: Resolved 07/30 plt 229k (7) DVT (deep venous thrombosis): Code(s): I82.409 - Acute embolism and thrombosis of unspecified deep veins of unspecified lower extremity Status: Acute Assessment and Plan: Left UE doppler showing DVT left subclavian, axillary and basilic veins. No hx of GI bleeding, cerebral hemorrhage or other reasons not to be on anticoagulation. Eliquis 5 mg BID Remove PICC line at discharge (8) Cerebrovascular accident: Code(s): I63.9 - Cerebral infarction, unspecified Status: Chronic Assessment and Plan: History of. Continue aspirin and Lipitor (9) Gastrojejunostomy tube dislodgement: Code(s): T85.528A - Displacement of other gastrointestinal prosthetic devices, implants and grafts, initial encounter Status: Acute Assessment and Plan: On 07/24 his gastrostomy tube was leaking. Tube feeding stopped. KUB unremarkable with a nonobstructive gas pattern. Gastroenterology replaced Gtube as family does not want transfer, although this is temporary fix. tube feedings resumed. Will need to be evaluated at [facility] (his surgeons are there) for permanent replacement of G-tube. DS: Summary Hospital Course Hospital Course: Patient is a 63-year-old male with PMH of stroke, chronic respiratory failure status post tracheostomy and PEG tube, seizure disorder, and dementia admitted for a dislodged trach. ED physician was able to replace the trach without issue. Thereafter he had a lot of upper airway rhonchi and seemed to be having difficulties clearing out mucus. Chest x-ray showed the tracheostomy was in expected position and also noted mild and diffuse lung disease consistent with pulmonary edema and/or pneumonia. He completed course of antibiotics for penumonia and pulmonary toileting to help clear secretions. Left UE doppler showed DVT left subclavian, axillary and basilic veins. Continue Eliquis 5 mg BID. PICC line to be removed prior to d/c. On 07/24 his gastrostomy tube was leaking. KUB unremarkable with a nonobstructive gas pattern. Gastroenterol
[2023-08-15 15:58] LABS: Glucose Point of Care 88 mg/dl (65-105)
== END 2023-08-01 15:15 | DRG 143 ==
LOC: ANHED 09:25 → ANH3MEDSUR 15:15 → ANH2MED 15:28 → ANHICU 07-09 04:43 → ANHIMU 07-12 16:06 → ANH2MED 07-15 11:21
PROVIDERS: Emergency Medicine; General Practice; Internal Medicine; Physician Assistant; Student in an Organized Health Care Education/Training Program; Admitting Provider Internal Medicine; Emergency Provider Physician Assistant; PCP Internal Medicine; Visit Provider Nurse Practitioner
DX: J95.03 Malfunction of tracheostomy stoma (principal); J15.1 Pneumonia due to Pseudomonas; B96.5 Pseudomonas (aeruginosa) (mallei) (pseudomallei) as the cause of diseases classified elsewhere; J96.21 Acute and chronic respiratory failure with hypoxia; G40.909 Epilepsy, unspecified, not intractable, without status epilepticus; Z20.822 Contact with and (suspected) exposure to COVID-19; Z11.52 Encounter for screening for COVID-19; K94.23 Gastrostomy malfunction; Z79.82 Long term (current) use of aspirin; N40.0 Benign prostatic hyperplasia without lower urinary tract symptoms; I69.320 Aphasia following cerebral infarction; I69.391 Dysphagia following cerebral infarction; R13.10 Dysphagia, unspecified; J44.9 Chronic obstructive pulmonary disease, unspecified; D50.9 Iron deficiency anemia, unspecified; K31.84 Gastroparesis; K22.5 Diverticulum of esophagus, acquired; Z89.612 Acquired absence of left leg above knee; T17.990A Other foreign object in respiratory tract, part unspecified in causing asphyxiation, initial encounter; J98.19 Other pulmonary collapse; T83.511A Infection and inflammatory reaction due to indwelling urethral catheter, initial encounter; N39.0 Urinary tract infection, site not specified; F01.52 Vascular dementia, unspecified severity, with psychotic disturbance; I82.B12 Acute embolism and thrombosis of left subclavian vein; I82.A12 Acute embolism and thrombosis of left axillary vein; I82.612 Acute embolism and thrombosis of superficial veins of left upper extremity; J04.10 Acute tracheitis without obstruction; D69.6 Thrombocytopenia, unspecified; T85.528A Displacement of other gastrointestinal prosthetic devices, implants and grafts, initial encounter
CPT/HCPCS: 36415; 36569; 36600; 71045; 74018; 74019; 80048; 80053; 80202; 81001; 82375; 82565; 82805; 82948; 83050; 83605; 83735; 83880; 84100; 84145; 85025; 85027; 85055; 85610; 85730; 86140; 86738; 87040; 87070; 87086; 87186; 87205; 87449; 87635; 87637; 87641; 87899; 93005; 93971; 94002; 94640; 94668; 94669; 96365; 96366; 96367; 96372; 96375; 96376; 99285; A4629; A9270; C1751; G0378; G0379; J1650; J1741; J1953; J2060; J2185; J2270; J2543; J3370

== ENCOUNTER 2023-08-04 18:52 | Emergency (ER) | payer OTHER, SELFPAY ==
--- NOTE | ~2023-08-04 | CT_ITS ---
EXAMINATION: CT brain wo con DATE: 08/04/2023 21:32 INDICATION: Seizures. TECHNIQUE: Computed tomography (CT) of the head was performed without intravenous contrast. The mA wa s adjusted according to patient size. Iterative reconstruction technique was employed. The dose-lengt h product was 908.00 mGy-cm. COMPARISON: Head CT 11/10/2022 FINDINGS: There are old infarcts involving the bilateral thalami, left basal ganglia, and right occip ital lobe. There are scattered areas of low attenuation in the cerebral white matter. There is no int racranial hemorrhage, acute infarction, or abnormal intracranial mass lesion. The ventricles are norm al in size. There is a right frontal scalp hematoma. There is an old blowout fracture of medial wall of left orbit. There is complete opacification right maxillary sinus. There are small bilateral masto id effusions. There is left posterior scalp soft tissue swelling. IMPRESSION: 1. Old infarcts involving the thalami, left basal ganglia, and right occipital lobe. 2. Stable moderate nonspecific cerebral white matter disease, which likely represents chronic small v essel ischemic disease. Reviewed, dictated and finalized at location [facility]. [facility] SPECIAL IMPRESSION: 1. Old infarcts involving the thalami, left basal ganglia, and right occipital lobe. 2. Stable moderate nonspecific cerebral white matter disease, which likely repr esents chronic small vessel ischemic disease.
[2023-08-04 18:58] VITALS: BP 172/90; PULSE 70; RESP 16; TEMP 36.4; O2SAT 100
--- NOTE | 2023-08-04 19:52 | ED.SEIZURE ---
HPI - Seizure General Chief Complaint: Seizure Stated Complaint: seizure Time Seen by Provider: 08/04/23 19:42 Source: patient Mode of arrival: EMS Limitations: physical limitation and clinical condition History of Present Illness HPI Narrative: Patient presents after report of 3 seizures lasting 30-45 seconds each, unknown over what time period. It is reported that staff thought they appeared more focal recently but unclear what that meant specifically. Patient states he loses Consciousness during seizures. He is not aware had a seizure but knows he has a history of them. Denies changes in sleep. States it is possible he has missed some doses of medications but doesn't know; unknown if new meds. He was discharged from hospital on Tuesday. Patient states he thinks he is back at his baseline. Only complaint is of a headache. Patient has multiple references to known seizure disorder/ epilepsy on his problem list including periods of status epilepticus. Medication list includes lacosamide 200 mg via G-tube 2 times a day, levetiracetam oral solution 2000 mg via G-tube 2 times a day, valproic acid 500 mg via GT to 4 times a day as well as clobazam oral film 10 mg via G-tube 1 time a day plus clobazam 15 mg via G-tube at bedtime. Seizure History: Yes Related Data Home Medications Medication Instructions Recorded Confirmed atorvastatin 40 mg tablet 40 mg feeding tube QHS 11/14/22 07/08/23 folic acid 1 mg tablet 1 mg feeding tube DAILY 11/14/22 07/08/23 lacosamide 200 mg tablet 200 mg feeding tube Q12H 11/14/22 07/08/23 aspirin 81 mg chewable tablet 81 mg feeding tube DAILY 11/15/22 07/08/23 metoprolol tartrate 25 mg tablet 25 mg feeding tube Q12H 12/18/22 07/08/23 polyethylene glycol 3350 17 17 g feeding tube Q12H 12/18/22 07/08/23 gram/dose oral powder bisacodyl 10 mg rectal suppository 10 mg RECTAL DAILY PRN Constipation 02/11/23 07/08/23 magnesium hydroxide 400 mg/5 mL 30 ml feeding tube HS PRN 02/11/23 07/08/23 oral suspension (Milk of Magnesia) Constipation sennosides 8.6 mg tablet (senna) 8.6 mg feeding tube HS PRN 02/11/23 07/08/23 Constipation sodium phosphates 19 gram-7 197 ml RECTAL ONCE 02/11/23 07/08/23 gram/118 mL enema (Fleet Enema) thiamine HCl (vitamin B1) 100 mg 100 mg feeding tube DAILY 02/11/23 07/08/23 tablet clobazam 10 mg tablet 15 mg feeding tube HS 03/21/23 07/08/23 famotidine 20 mg tablet 20 mg feeding tube Q12H 03/21/23 07/08/23 levetiracetam 100 mg/mL oral 2,000 mg feeding tube Q12H 03/21/23 07/08/23 solution (Keppra) peg [id number] 1 1 drp EACH EYE 4-6XD PRN Dry Eyes 03/21/23 07/08/23 %-0.2 %-0.2 % eye drops (Artificial Tears ([id number])) valproic acid (as sodium salt) 250 500 mg PO QID 03/21/23 07/08/23 mg/5 mL oral solution calcium carbonate 500 mg/5 mL 1,250 mg feeding tube Q6H PRN 07/08/23 07/08/23 calcium (1,250 mg/5 mL) oral Heartburn suspension clobazam 10 mg tablet 10 mg feeding tube DAILY 07/08/23 07/08/23 guaifenesin 100 mg/5 mL oral liquid 600 mg feeding tube Q6HR 07/08/23 07/08/23 ipratropium 0.5 mg-albuterol 3 mg 3 ml inhalation Q4H 07/08/23 07/08/23 (2.5 mg base)/3 mL nebulization soln magnesium citrate 300 ml PO DAILY PRN Constipation 07/08/23 07/08/23 magnesium citrate (Citroma oral 296 ml feeding tube DAILY PRN 07/08/23 07/08/23 solution) Constipation pantoprazole 40 mg granules 40 mg PO DAILY 07/08/23 07/08/23 delayed-release for susp in packet tramadol 50 mg feeding tube Q8H 07/08/23 07/08/23 Allergies Allergy/AdvReac Type Severity Reaction Status Date / Time clonazepam Allergy Unknown Unknown Verified 08/04/23 19:04 [facility] Past Medical History Medical History (Updated 08/04/23 @ 22:26 by Anna Enriquez MD) Acute and chronic respiratory failure with hypoxia Aphasia following cerebral infarction Benign prostatic hyperplasia Cerebrovascular accident Residual expressive aphasia and dysphagia. Chronic o
[2023-08-04] MEDS: levETIRAcetam ORAL SOL 500 MG/5 ML UDC 2000 MG FEED TUBE (21:38)
[2023-08-04] MEDS: VALPROIC ACID LIQ 250 MG/5 ML ORAL SOLUTION UDC 500 MG FEED TUBE (21:46)
[2023-08-04] MEDS: LACOSAMIDE (*CRX) 200 MG TABLET FEED TUBE (21:49)
[2023-08-04 21:50] VITALS: BP 152/88; PULSE 92; RESP 16; O2SAT 100
[2023-08-04] MEDS: WATER FOR IRRIGATION, STERILE 500 ML BOTTLE (21:50)
[2023-08-04] MEDS: cloBAZam (*CRX) 10 MG TABLET FEED TUBE (21:50)
[2023-08-04] MEDS: CLOBAZAM 5 MG FEED TUBE (21:50)
[2023-08-04 21:55] VITALS: O2SAT 100
[2023-08-04 21:59] LABS: Basophils Percent Auto 0.4 % (0.2-1.2); Eosinophils Absolute Auto 0.3 K/mm3 (0-0.3); Eosinophils Percent Auto 3.5 % (0-4.4); Hematocrit 47.8 % (42.0-52.0); Hemoglobin 14.9 g/dL (14.0-18.0); Immature Granulocyte Absolute 0.01 K/mm3 (0.00-0.031); Immature Granulocyte Percent A 0.1 % (0-0.5); Lymphocytes Absolute Auto 2.51 K/mm3 (0.9-3.2); Lymphocytes Percent Auto 35.2 % (18.3-44.2); Mean Corpuscular HGB Conc 31.2 g/dl (32-36); Mean Corpuscular Hemoglobin 31.8 pg (26-34); Mean Corpuscular Volume 102.1 fl (80-100); Mean Platelet Volume 13.2 fl (7.4-10.4); Monocytes Absolute Auto 0.5 K/mm3 (0.1-0.6); Monocytes Percent Auto 7.1 % (2.6-8.5); Neutrophils Absolute Auto 3.8 K/mm3 (1.3-6.7); Neutrophils Percent Auto 53.7 % (45.5-73.1); Platelet Count Result 174 k/mm3 (150-375); Red Blood Count 4.68 M/mm3 (4.6-6.20); Red Cell Distribution Width 13.5 % (11.5-14.5); White Blood Count 7.1 K/mm3 (4.5-10.0)
[2023-08-04 22:09] LABS: Alanine Aminotransferase 17 U/L (6-50); Alkaline Phosphatase 103 U/L (38-126); Anion Gap 9 mmol/L (8-16); Aspartate Amino Transferase 30 U/L (17-59); Bilirubin,Total 0.4 mg/dL (0.2-1.3); Blood Urea Nitrogen 13 mg/dL (9-20); Carbon Dioxide 24 mmol/L (22-30); Chloride 103 mmol/L (98-107); Estimated CRCL calculation 126 ml/min; Estimated Glomerular Filt Rate > 60; Glucose 93 mg/dL (65-110); Magnesium 2.1 mg/dL (1.6-2.3); Potassium 4.6 mmol/L (3.4-5.0); Sodium 136 mmol/L (137-145)
[2023-08-04 22:24] LABS: Anisocytosis 1+ (NORMAL); Burr Cells 1+ (NORMAL); Large Platelets Present; Schistocytes None Seen (NORMAL)
[2023-08-04] MEDS: ACETAMINOPHEN 500 MG TABLET 1000 MG PO (22:28)
[2023-08-04 22:38] VITALS: BP 152/84; PULSE 98; RESP 18; O2SAT 100
--- NOTE | 2023-08-04 22:40 | PC.NURSE ---
Attempted to call Massiel Begum for return report without answer.
== END 2023-08-05 00:05 ==
PROVIDERS: Emergency Provider Student in an Organized Health Care Education/Training Program; PCP Internal Medicine
DX: G40.909 Epilepsy, unspecified, not intractable, without status epilepticus (principal); J44.9 Chronic obstructive pulmonary disease, unspecified; F03.90 Unspecified dementia, unspecified severity, without behavioral disturbance, psychotic disturbance, mood disturbance, and anxiety; Z86.73 Personal history of transient ischemic attack (TIA), and cerebral infarction without residual deficits
CPT/HCPCS: 36415; 70450; 80053; 83735; 85025; 85055; 99284; A9270

== ENCOUNTER 2023-08-20 08:52 | Emergency (ER) | payer OTHER, SELFPAY ==
--- NOTE | ~2023-08-20 | CT_ITS ---
EXAMINATION: CT abdomen pelvis wo con DATE: 08/20/2023 10:41 INDICATION: Abdominal pain TECHNIQUE: Computed tomography (CT) of the abdomen and pelvis was performed without intravenous contr ast. The dose-length product was 722.17 mGy-cm. Automated exposure control and iterative reconstruction technique were employed. COMPARISON: None. FINDINGS: There is bilateral lower lobe consolidation, suspicious for pneumonia. No significant effus ion. No pericardial effusion. Heart size normal. Gallstones. Nonobstructing bilateral nephrolithiasis. Bladder is decompressed, limiting evaluation fo r bladder wall thickening. No hydronephrosis. Prostate gland is enlarged. Moderate-severe lumbar spon dylosis. There is dextroscoliosis of the lumbar spine. IMPRESSION: 1. Bilateral lower lobe airspace disease, consistent with pneumonia. 2: Nonobstructing bilateral nephrolithiasis. Reviewed, dictated and finalized at location [facility].
[2023-08-20 08:48] VITALS: BP 139/78; PULSE 69; RESP 19; TEMP 36.3; O2SAT 100
[2023-08-20 10:07] LABS: Basophils Percent Auto 0.5 % (0.2-1.2); Eosinophils Absolute Auto 0.6 K/mm3 (0-0.3); Eosinophils Percent Auto 9.6 % (0-4.4); Hematocrit 39.9 % (42.0-52.0); Hemoglobin 12.8 g/dL (14.0-18.0); Immature Granulocyte Absolute 0.01 K/mm3 (0.00-0.031); Immature Granulocyte Percent A 0.2 % (0-0.5); Lymphocytes Absolute Auto 3.05 K/mm3 (0.9-3.2); Lymphocytes Percent Auto 45.8 % (18.3-44.2); Mean Corpuscular HGB Conc 32.1 g/dl (32-36); Mean Corpuscular Hemoglobin 32.2 pg (26-34); Mean Corpuscular Volume 100.3 fl (80-100); Mean Platelet Volume 13.2 fl (7.4-10.4); Monocytes Absolute Auto 0.7 K/mm3 (0.1-0.6); Monocytes Percent Auto 11.1 % (2.6-8.5); Neutrophils Absolute Auto 2.2 K/mm3 (1.3-6.7); Neutrophils Percent Auto 32.8 % (45.5-73.1); Platelet Count Result 124 k/mm3 (150-375); Red Blood Count 3.98 M/mm3 (4.6-6.20); Red Cell Distribution Width 14.3 % (11.5-14.5); White Blood Count 6.7 K/mm3 (4.5-10.0)
[2023-08-20 10:14] LABS: Alanine Aminotransferase 24 U/L (6-50); Albumin Level 3.4 g/dL (3.5-5.1); Alkaline Phosphatase 91 U/L (38-126); Anion Gap -2 mmol/L (8-16); Aspartate Amino Transferase 27 U/L (17-59); Bilirubin,Total 0.3 mg/dL (0.2-1.3); Blood Urea Nitrogen 17 mg/dL (9-20); Calcium 9.4 mg/dL (8.4-10.2); Carbon Dioxide 34 mmol/L (22-30); Chloride 104 mmol/L (98-107); Estimated CRCL calculation 112 ml/min; Estimated Glomerular Filt Rate > 60; Glucose 89 mg/dL (65-110); Lipase 132 U/L (23-300); Potassium 4.4 mmol/L (3.4-5.0); Sodium 136 mmol/L (137-145)
[2023-08-20 10:45] VITALS: BP 134/82; PULSE 68; RESP 20; O2SAT 100
[2023-08-20 10:47] LABS: Appearance Urine Clear (Clear); Bilirubin Urine Negative (Negative); Blood Urine Negative (Negative); Color Urine Yellow (Yellow); Glucose Urine UA Negative (Negative); Ketones Urine Negative (Negative); Leukocyte Esterase Ur Negative LEU/UL (Negative); Nitrate Urine Negative (Negative); Protein Urine Negative (Negative); Specific Grav Ur 1.014 (1.001-1.035)
[2023-08-20 10:50] LABS: Add Urine Microscopic? NO
[2023-08-20 11:34] VITALS: O2SAT 100
--- NOTE | 2023-08-20 11:42 | ED.ABDPAIN ---
HPI - Abdominal Pain General Chief Complaint: Abdominal Pain Stated Complaint: abd pain, g-tube and trach bleeding Time Seen by Provider: 08/20/23 08:54 Source: EMS and RN notes reviewed Mode of arrival: EMS Limitations: clinical condition History of Present Illness HPI narrative: A 63-year-old with a history of CVA status post aphasia, status post tracheostomy, status post gastrostomy tube was sent in from a [facility] with a complaint of abdominal pain and mild bleeding around the trachea. However upon arrival to the ER patient had no bleeding after the trach if he is nonverbal Related Data Home Medications Medication Instructions Recorded Confirmed atorvastatin 40 mg tablet 40 mg feeding tube QHS 11/14/22 08/20/23 folic acid 1 mg tablet 1 mg feeding tube DAILY 11/14/22 08/20/23 lacosamide 200 mg tablet 200 mg feeding tube Q12H 11/14/22 08/20/23 aspirin 81 mg chewable tablet 81 mg feeding tube DAILY 11/15/22 08/20/23 metoprolol tartrate 25 mg tablet 25 mg feeding tube Q12H 12/18/22 08/20/23 polyethylene glycol 3350 17 17 g feeding tube Q12H 12/18/22 08/20/23 gram/dose oral powder bisacodyl 10 mg rectal suppository 10 mg RECTAL DAILY PRN Constipation 02/11/23 08/20/23 sennosides 8.6 mg tablet (senna) 8.6 mg feeding tube HS PRN 02/11/23 08/20/23 Constipation sodium phosphates 19 gram-7 197 ml RECTAL ONCE 02/11/23 08/20/23 gram/118 mL enema (Fleet Enema) thiamine HCl (vitamin B1) 100 mg 100 mg feeding tube DAILY 02/11/23 08/20/23 tablet clobazam 10 mg tablet 15 mg feeding tube HS 03/21/23 08/20/23 famotidine 20 mg tablet 20 mg feeding tube Q12H 03/21/23 08/20/23 levetiracetam 100 mg/mL oral 2,000 mg feeding tube Q12H 03/21/23 08/20/23 solution (Keppra) peg [id number] 1 1 drp EACH EYE 4-6XD PRN Dry Eyes 03/21/23 08/20/23 %-0.2 %-0.2 % eye drops (Artificial Tears ([id number])) valproic acid (as sodium salt) 250 500 mg PO QID 03/21/23 08/20/23 mg/5 mL oral solution calcium carbonate 500 mg/5 mL 1,250 mg feeding tube Q6H PRN 07/08/23 08/20/23 calcium (1,250 mg/5 mL) oral Heartburn suspension clobazam 10 mg tablet 10 mg feeding tube DAILY 07/08/23 08/20/23 guaifenesin 100 mg/5 mL oral liquid 600 mg feeding tube Q6HR 07/08/23 08/20/23 ipratropium 0.5 mg-albuterol 3 mg 3 ml inhalation Q4H 07/08/23 08/20/23 (2.5 mg base)/3 mL nebulization soln magnesium citrate 300 ml PO DAILY PRN Constipation 07/08/23 08/20/23 magnesium citrate (Citroma oral 296 ml feeding tube DAILY PRN 07/08/23 08/20/23 solution) Constipation Allergies Allergy/AdvReac Type Severity Reaction Status Date / Time clonazepam Allergy Unknown Unknown Verified 08/20/23 09:28 Review of Systems Review of Systems: ROS unobtainable: Yes unobtainable due to medical condition PMFSH Past Medical History Medical History Acute and chronic respiratory failure with hypoxia Aphasia following cerebral infarction Benign prostatic hyperplasia Cerebrovascular accident Residual expressive aphasia and dysphagia. Chronic obstructive pulmonary disease Epilepsy, unspecified, not intractable, with status epilepticus Esophageal diverticulum Gastroparesis Hemiplegia and hemiparesis following cerebral infarction affecting left non-dominant side History of acute pulmonary edema Iron deficiency anemia 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, not intractable, with status epilepticus Seizure disorder Unspecified severe protein-calorie malnutrition Vascular dementia with psychotic disturbance Surgical History Surgical History History of left above knee amputation History of tracheostomy Family History Family History Other Unknown family medical history Social History Social History (Re
[2023-08-20 12:00] VITALS: BP 104/72; PULSE 70; RESP 16; O2SAT 100
== END 2023-08-20 13:47 ==
PROVIDERS: Emergency Provider Family Medicine; PCP Internal Medicine
DX: R10.9 Unspecified abdominal pain (principal); F01.52 Vascular dementia, unspecified severity, with psychotic disturbance; I69.920 Aphasia following unspecified cerebrovascular disease; I69.354 Hemiplegia and hemiparesis following cerebral infarction affecting left non-dominant side; J96.11 Chronic respiratory failure with hypoxia; G40.909 Epilepsy, unspecified, not intractable, without status epilepticus; N40.0 Benign prostatic hyperplasia without lower urinary tract symptoms; K31.84 Gastroparesis; D50.9 Iron deficiency anemia, unspecified; Z93.0 Tracheostomy status; Z93.1 Gastrostomy status; Z89.612 Acquired absence of left leg above knee; Z79.82 Long term (current) use of aspirin; Z79.01 Long term (current) use of anticoagulants; R91.8 Other nonspecific abnormal finding of lung field; N20.0 Calculus of kidney
CPT/HCPCS: 36415; 74176; 80053; 81003; 83690; 85025; 85055; 99284

== ENCOUNTER → 2023-08-24 | Emergency (ER) | payer OTHER, SELFPAY ==
[2023-08-24 09:32] VITALS: PULSE 100; RESP 16; TEMP 36.4; O2SAT 97
[2023-08-24 09:39] VITALS: BP 149/85; O2SAT 100
[2023-08-24 09:42] VITALS: PULSE 100
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
[2023-08-24 09:54] LABS: Base Excess ABG -0.3 mEq/l (+/-2.0); Fractional Inspired Oxygen 45 %; HCO3 ABG 24.5 mEq/l (22.0-26.0); Oxygen Content ABG 19.7 %vol (16.0-22.0); Oxyhemoglobin 95.2 % THb (90.0-100.0); PCO2 ABG 40.7 mmHg (35.0-45.0); PO2 ABG 91.6 mmHg (80.0-100.0); PO2 FiO2 Ratio Arterial Blood 2.04 %; Total Hemoglobin 14.7 g/dL (12.0-18.0); pH ABG 7.398 (7.350-7.450)
[2023-08-24 09:55] LABS: Site Drawn RIGHT RADIAL
[2023-08-24 09:56] LABS: Device HIGH FLOW THERAPY; Modified Allen's Test Pass
[2023-08-24 09:57] VITALS: O2SAT 100
[2023-08-24 10:08] VITALS: BP 137/82; PULSE 93; RESP 20; O2SAT 99
== END ==
LOC: ANHED 10:04
PROVIDERS: Emergency Provider Emergency Medicine; PCP Internal Medicine
DX: J96.11 Chronic respiratory failure with hypoxia (principal); F01.52 Vascular dementia, unspecified severity, with psychotic disturbance; I69.320 Aphasia following cerebral infarction; I69.391 Dysphagia following cerebral infarction; I69.354 Hemiplegia and hemiparesis following cerebral infarction affecting left non-dominant side; J44.9 Chronic obstructive pulmonary disease, unspecified; G40.909 Epilepsy, unspecified, not intractable, without status epilepticus; K31.84 Gastroparesis; D50.9 Iron deficiency anemia, unspecified; Z93.0 Tracheostomy status; Z89.612 Acquired absence of left leg above knee; Z79.82 Long term (current) use of aspirin; Z79.01 Long term (current) use of anticoagulants
CPT/HCPCS: 36600; 82805; 99284

== ENCOUNTER 2023-09-04 07:43 | Emergency (ER) | payer OTHER, SELFPAY ==
[2023-09-04] VITALS (12 sets, daily range): BP systolic 115–160; BP diastolic 77–99; PULSE 112–123; RESP 22–32; TEMP 36.6–37; O2SAT 93–96
--- NOTE | ~2023-09-04 | XR_ITS ---
XR chest 1V portable DATE: 09/04/2023 08:20 INDICATION: Shortness of breath. Hypoxia. TECHNIQUE: Portable AP chest on September 04, 2023 at 0815 hours COMPARISON: July 14, 2023 portable AP chest at 0531 hours FINDINGS: Tracheostomy tube is noted. There is bilateral lower lung infiltrate and/atelectasis. Slight blunting of the costophrenic angles which may indicate minimal pleural effusions. Heart size is not optimally evaluated on AP projection because of magnification. Uriel B-lines, peribronchial soft tissue thickening and mild prominence of minor fissure suggesting possible pulmonary interstitial and subpleural edema. IMPRESSION: Bilateral lower lung infiltrate and/atelectasis Suggestion of mild congestive changes Tracheostomy tube Reviewed, dictated and finalized at location [facility].
--- NOTE | 2023-09-04 07:52 | ECG_ITS ---
Measurements Intervals [place] Rate: 108 P: 68 ME: 147 QRS: -24 QRSD: 85 T: 82 QT: 323 AVG RR: 552 QTc: 387 QTCB: 434 QTCF: 393 Interpretive Statements SINUS TACHYCARDIA POSSIBLE LEFT ATRIAL ENLARGEMENT [-0.1mV P WAVE IN V1/V2] ANTEROSEPTAL MYOCARDIAL INFARCTION, OF INDETERMINATE AGE [40+ MSQ WAVE IN V1-V4] ABNORMAL ECG SEE SCANNED COPY FOR SIGNATURE MTDD
--- NOTE | 2023-09-04 08:41 | ED.GENADULT ---
HPI - General Adult General Chief complaint: Shortness of Breath/Dyspnea Stated complaint: SOB Time Seen by Provider: 09/04/23 08:03 History of Present Illness HPI narrative: 63-year-old male present to the emergency department for evaluation increased secretions from his tracheostomy and some incidence of hypoxia. Upon arrival to the emergency department patient is resting comfortably. Patient is room air this time. Patient did require blow-by with a non-rebreather. Patient denies any pain and patient is resting comfortably at time of evaluation. Related Data Home Medications Medication Instructions Recorded Confirmed atorvastatin 40 mg tablet 40 mg feeding tube QHS 11/14/22 08/20/23 folic acid 1 mg tablet 1 mg feeding tube DAILY 11/14/22 08/20/23 lacosamide 200 mg tablet 200 mg feeding tube Q12H 11/14/22 08/20/23 aspirin 81 mg chewable tablet 81 mg feeding tube DAILY 11/15/22 08/20/23 metoprolol tartrate 25 mg tablet 25 mg feeding tube Q12H 12/18/22 08/20/23 polyethylene glycol 3350 17 17 g feeding tube Q12H 12/18/22 08/20/23 gram/dose oral powder bisacodyl 10 mg rectal suppository 10 mg RECTAL DAILY PRN Constipation 02/11/23 08/20/23 sennosides 8.6 mg tablet (senna) 8.6 mg feeding tube HS PRN 02/11/23 08/20/23 Constipation sodium phosphates 19 gram-7 197 ml RECTAL ONCE 02/11/23 08/20/23 gram/118 mL enema (Fleet Enema) thiamine HCl (vitamin B1) 100 mg 100 mg feeding tube DAILY 02/11/23 08/20/23 tablet clobazam 10 mg tablet 15 mg feeding tube HS 03/21/23 08/20/23 famotidine 20 mg tablet 20 mg feeding tube Q12H 03/21/23 08/20/23 levetiracetam 100 mg/mL oral 2,000 mg feeding tube Q12H 03/21/23 08/20/23 solution (Keppra) peg [id number] 1 1 drp EACH EYE 4-6XD PRN Dry Eyes 03/21/23 08/20/23 %-0.2 %-0.2 % eye drops (Artificial Tears ([id number])) valproic acid (as sodium salt) 250 500 mg PO QID 03/21/23 08/20/23 mg/5 mL oral solution calcium carbonate 500 mg/5 mL 1,250 mg feeding tube Q6H PRN 07/08/23 08/20/23 calcium (1,250 mg/5 mL) oral Heartburn suspension clobazam 10 mg tablet 10 mg feeding tube DAILY 07/08/23 08/20/23 guaifenesin 100 mg/5 mL oral liquid 600 mg feeding tube Q6HR 07/08/23 08/20/23 ipratropium 0.5 mg-albuterol 3 mg 3 ml inhalation Q4H 07/08/23 08/20/23 (2.5 mg base)/3 mL nebulization soln magnesium citrate 300 ml PO DAILY PRN Constipation 07/08/23 08/20/23 magnesium citrate (Citroma oral 296 ml feeding tube DAILY PRN 07/08/23 08/20/23 solution) Constipation Allergies Allergy/AdvReac Type Severity Reaction Status Date / Time clonazepam Allergy Unknown Unknown Verified 09/04/23 08:00 Review of Systems Review of Systems: All systems reviewed & are unremarkable except as noted in HPI and below PMFSH Past Medical History Medical History Acute and chronic respiratory failure with hypoxia Aphasia following cerebral infarction Benign prostatic hyperplasia Cerebrovascular accident Residual expressive aphasia and dysphagia. 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
[2023-09-04 09:03] LABS: Basophils Percent Auto 0.3 % (0.2-1.2); Eosinophils Absolute Auto 0.2 K/mm3 (0-0.3); Eosinophils Percent Auto 1.3 % (0-4.4); Hematocrit 42.3 % (42.0-52.0); Hemoglobin 13.8 g/dL (14.0-18.0); Immature Granulocyte Absolute 0.06 K/mm3 (0.00-0.031); Immature Granulocyte Percent A 0.4 % (0-0.5); Lymphocytes Absolute Auto 3.12 K/mm3 (0.9-3.2); Lymphocytes Percent Auto 19.7 % (18.3-44.2); Mean Corpuscular HGB Conc 32.6 g/dl (32-36); Mean Corpuscular Hemoglobin 31.7 pg (26-34); Mean Corpuscular Volume 97.2 fl (80-100); Monocytes Absolute Auto 1.7 K/mm3 (0.1-0.6); Monocytes Percent Auto 10.8 % (2.6-8.5); Neutrophils Absolute Auto 10.7 K/mm3 (1.3-6.7); Neutrophils Percent Auto 67.5 % (45.5-73.1); Platelet Count Result 128 k/mm3 (150-375); Red Blood Count 4.35 M/mm3 (4.6-6.20); Red Cell Distribution Width 13.7 % (11.5-14.5); White Blood Count 15.8 K/mm3 (4.5-10.0)
[2023-09-04] MEDS: ALBUTEROL SULFATE NEB 2.5 MG/3 ML INH INHALATION (09:06)
[2023-09-04 09:12] LABS: Alanine Aminotransferase 15 U/L (6-50); Albumin Level 4.2 g/dL (3.5-5.1); Alkaline Phosphatase 95 U/L (38-126); Anion Gap 4 mmol/L (4-12); Aspartate Amino Transferase 26 U/L (17-59); Bilirubin,Total 0.8 mg/dL (0.2-1.3); Blood Urea Nitrogen 18 mg/dL (9-20); Calcium 10.1 mg/dL (8.4-10.2); Carbon Dioxide 31 mmol/L (22-30); Chloride 102 mmol/L (98-107); Estimated Glomerular Filt Rate > 60; Glucose 129 mg/dL (65-110); Potassium 4.3 mmol/L (3.4-5.0); Sodium 137 mmol/L (137-145)
[2023-09-04 09:13] LABS: Lactic Acid Reflex 1.8 mmol/L (0.7-2.0)
[2023-09-04 09:24] LABS: Atypical Lymphocytes Present; Platelet Estimate Adequate (Adequate); Schistocytes None Seen
[2023-09-04 09:41] LABS: Influenza A QL RT-PCR Negative (Negative); Influenza B QL RT-PCR Negative (Negative); RSV RNA, RT-PCR Negative (Negative); SARS-CoV-2 RNA PCR Negative (Negative)
[2023-09-04 09:45] LABS: NT Pro B Type Natriuretic Pept 844 pg/mL (19.9-100)
[2023-09-04 09:56] LABS: Procalcitonin 0.2 ng/mL
[2023-09-04] MEDS: SODIUM CHLORIDE 0.9% IV 500 ML 999 ML IV CONT (10:20)
== END 2023-09-04 14:45 ==
PROVIDERS: Emergency Provider Emergency Medicine; PCP Internal Medicine
DX: J96.11 Chronic respiratory failure with hypoxia (principal); Z43.0 Encounter for attention to tracheostomy; Z20.822 Contact with and (suspected) exposure to COVID-19; J44.9 Chronic obstructive pulmonary disease, unspecified; F01.52 Vascular dementia, unspecified severity, with psychotic disturbance; I69.920 Aphasia following unspecified cerebrovascular disease; I69.991 Dysphagia following unspecified cerebrovascular disease; I69.954 Hemiplegia and hemiparesis following unspecified cerebrovascular disease affecting left non-dominant side; G40.001 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, not intractable, with status epilepticus; G40.909 Epilepsy, unspecified, not intractable, without status epilepticus; K31.84 Gastroparesis; D50.9 Iron deficiency anemia, unspecified; N40.0 Benign prostatic hyperplasia without lower urinary tract symptoms; Z89.612 Acquired absence of left leg above knee; Z79.82 Long term (current) use of aspirin; Z79.01 Long term (current) use of anticoagulants; R00.0 Tachycardia, unspecified; R94.31 Abnormal electrocardiogram [ECG] [EKG]
CPT/HCPCS: 36415; 71045; 80053; 83605; 83880; 84145; 85025; 85055; 87040; 87637; 93005; 94640; 96360; 99284; J7040

== ENCOUNTER 2023-09-11 05:03 | Emergency (ER) | payer OTHER, SELFPAY ==
[2023-09-11 05:01] VITALS: RESP 18; O2SAT 100
[2023-09-11 05:07] VITALS: BP 157/77; PULSE 66; RESP 18; TEMP 36.7; O2SAT 99
--- NOTE | 2023-09-11 05:17 | ED.GENADULT ---
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 Typically wears a 6.5. EMS arrived and put in a 6.0 because apparently the 6.5 was not fitting into an very well. They brought him here in since but again he has had no issues. Patient is nonverbal. Not providing any further history. Related Data Home Medications Medication Instructions Recorded Confirmed atorvastatin 40 mg tablet 40 mg feeding tube QHS 11/14/22 08/20/23 folic acid 1 mg tablet 1 mg feeding tube DAILY 11/14/22 08/20/23 lacosamide 200 mg tablet 200 mg feeding tube Q12H 11/14/22 08/20/23 aspirin 81 mg chewable tablet 81 mg feeding tube DAILY 11/15/22 08/20/23 metoprolol tartrate 25 mg tablet 25 mg feeding tube Q12H 12/18/22 08/20/23 polyethylene glycol 3350 17 17 g feeding tube Q12H 12/18/22 08/20/23 gram/dose oral powder bisacodyl 10 mg rectal suppository 10 mg RECTAL DAILY PRN Constipation 02/11/23 08/20/23 sennosides 8.6 mg tablet (senna) 8.6 mg feeding tube HS PRN 02/11/23 08/20/23 Constipation sodium phosphates 19 gram-7 197 ml RECTAL ONCE 02/11/23 08/20/23 gram/118 mL enema (Fleet Enema) thiamine HCl (vitamin B1) 100 mg 100 mg feeding tube DAILY 02/11/23 08/20/23 tablet clobazam 10 mg tablet 15 mg feeding tube HS 03/21/23 08/20/23 famotidine 20 mg tablet 20 mg feeding tube Q12H 03/21/23 08/20/23 levetiracetam 100 mg/mL oral 2,000 mg feeding tube Q12H 03/21/23 08/20/23 solution (Keppra) peg [id number] 1 1 drp EACH EYE 4-6XD PRN Dry Eyes 03/21/23 08/20/23 %-0.2 %-0.2 % eye drops (Artificial Tears ([id number])) valproic acid (as sodium salt) 250 500 mg PO QID 03/21/23 08/20/23 mg/5 mL oral solution calcium carbonate 500 mg/5 mL (as 1,250 mg feeding tube Q6H PRN 07/08/23 08/20/23 calcium carb 1,250 mg/5 mL) oral Heartburn suspension clobazam 10 mg tablet 10 mg feeding tube DAILY 07/08/23 08/20/23 guaifenesin 100 mg/5 mL oral liquid 600 mg feeding tube Q6HR 07/08/23 08/20/23 ipratropium 0.5 mg-albuterol 3 mg 3 ml inhalation Q4H 07/08/23 08/20/23 (2.5 mg base)/3 mL nebulization soln magnesium citrate 300 ml PO DAILY PRN Constipation 07/08/23 08/20/23 magnesium citrate (Citroma oral 296 ml feeding tube DAILY PRN 07/08/23 08/20/23 solution) Constipation Allergies Allergy/AdvReac Type Severity Reaction Status Date / Time clonazepam Allergy Unknown Unknown Verified 09/04/23 08:00 Review of Systems Review of Systems: ROS unobtainable: Yes unobtainable due to medical condition PMFSH Past Medical History Medical History Acute and chronic respiratory failure with hypoxia Aphasia following cerebral infarction Benign prostatic hyperplasia Cerebrovascular accident Residual expressive aphasia and dysphagia. 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
--- NOTE | 2023-09-11 05:19 | PC.NURSE ---
this rn called and spoke SANDY Naranjo with to give report on pt discharge instructions.
[2023-09-11 05:40] VITALS: BP 135/72; PULSE 60; RESP 18; O2SAT 100
[2023-09-11 05:42] VITALS: BP 135/72; PULSE 60; RESP 18; O2SAT 100
== END 2023-09-11 05:51 ==
PROVIDERS: Emergency Provider Emergency Medicine; PCP Internal Medicine
DX: Z43.0 Encounter for attention to tracheostomy (principal); F01.52 Vascular dementia, unspecified severity, with psychotic disturbance; J44.9 Chronic obstructive pulmonary disease, unspecified; J96.11 Chronic respiratory failure with hypoxia; I69.920 Aphasia following unspecified cerebrovascular disease; I69.991 Dysphagia following unspecified cerebrovascular disease; I69.954 Hemiplegia and hemiparesis following unspecified cerebrovascular disease affecting left non-dominant side; G40.909 Epilepsy, unspecified, not intractable, without status epilepticus; N40.0 Benign prostatic hyperplasia without lower urinary tract symptoms; D50.9 Iron deficiency anemia, unspecified; K31.84 Gastroparesis; Z89.612 Acquired absence of left leg above knee; Z79.82 Long term (current) use of aspirin; Z79.01 Long term (current) use of anticoagulants
CPT/HCPCS: 99281; A4629

== ENCOUNTER 2023-09-21 12:11 | Emergency (ER) | payer OTHER, SELFPAY ==
[2023-09-21] VITALS (30 sets, daily range): BP systolic 100–145; BP diastolic 75–91; PULSE 88–108; RESP 15–26; TEMP 36.4–37.2; O2SAT 95–100
--- NOTE | ~2023-09-21 | XR_ITS ---
XR chest 1V portable 09/21/2023 14:34 Indication: Dyspnea Procedure: AP portable chest Comparison: Comparison to multiple prior studies sequentially, with oldest reviewed study dated 07/12. Findings: Mild interstitial edema. Heart size normal. Tracheostomy tube present. Possible small effus ion. No pneumothorax. No acute osseous abnormality. Impression: 1: Mild interstitial edema. Reviewed, dictated and finalized at location B. Impression: 1: Mild interstitial edema.
[2023-09-21 13:57] LABS: Alveolar/Arterial O2 Gradient 569.3 mmHg; Base Excess ABG 3.1 mEq/l (+/-2.0); Carboxyhemoglobin 0.2 % THb (0-2.0); Fractional Inspired Oxygen 100 %; HCO3 ABG 28.6 mEq/l (22.0-26.0); Methemoglobin ABG 0.4 %THb (0-1.5); Oxygen Content ABG 18.3 %vol (16.0-22.0); Oxygen Saturation ABG 97.3 % (95.0-100.0); Oxyhemoglobin 95.8 % THb (90.0-100.0); PCO2 ABG 47.3 mmHg (35.0-45.0); PO2 ABG 96.4 mmHg (80.0-100.0); PO2 FiO2 Ratio Arterial Blood 0.96 %; Reduced Hemoglobin 3.6 %THb (0-5.0); Total Hemoglobin 13.5 g/dL (12.0-18.0)
[2023-09-21 13:58] LABS: Site Drawn LEFT RADIAL
[2023-09-21 13:59] LABS: Device NON-REBREATHER MASK
--- NOTE | 2023-09-21 14:14 | ED.GENADULT ---
HPI - General Adult General Chief complaint: Unspecified Stated complaint: NH sending for sepsis Time Seen by Provider: 09/21/23 13:39 History of Present Illness HPI narrative: Patient is a 63-year-old male, trach dependent, status post BKA, aphasia following CVA, here with tachycardia and hypoxia from his detention. Patient provides limited history. Per patient's RN at facility he had had increased secretions, green in color, history of pseudomonas. He was desaturating, tachycardic, RR 20-30. 3 days of this illness. At baseline he has airflow for humid air, chest PT with vibratory vest and water drip. Usually runs at 2-3 L. No fever. Saturations were as low as 86% at facility. Family is aware that she is being sent into the ER. Sister is Anupama AZAR. Related Data Home Medications Medication Instructions Recorded Confirmed atorvastatin 40 mg tablet 40 mg feeding tube QHS 11/14/22 08/20/23 folic acid 1 mg tablet 1 mg feeding tube DAILY 11/14/22 08/20/23 lacosamide 200 mg tablet 200 mg feeding tube Q12H 11/14/22 08/20/23 aspirin 81 mg chewable tablet 81 mg feeding tube DAILY 11/15/22 08/20/23 metoprolol tartrate 25 mg tablet 25 mg feeding tube Q12H 12/18/22 08/20/23 polyethylene glycol 3350 17 17 g feeding tube Q12H 12/18/22 08/20/23 gram/dose oral powder bisacodyl 10 mg rectal suppository 10 mg RECTAL DAILY PRN Constipation 02/11/23 08/20/23 sennosides 8.6 mg tablet (senna) 8.6 mg feeding tube HS PRN 02/11/23 08/20/23 Constipation sodium phosphates 19 gram-7 197 ml RECTAL ONCE 02/11/23 08/20/23 gram/118 mL enema (Fleet Enema) thiamine HCl (vitamin B1) 100 mg 100 mg feeding tube DAILY 02/11/23 08/20/23 tablet clobazam 10 mg tablet 15 mg feeding tube HS 03/21/23 08/20/23 famotidine 20 mg tablet 20 mg feeding tube Q12H 03/21/23 08/20/23 levetiracetam 100 mg/mL oral 2,000 mg feeding tube Q12H 03/21/23 08/20/23 solution (Keppra) peg 407-[id number]-[id number] 1 1 drp EACH EYE 4-6XD PRN Dry Eyes 03/21/23 08/20/23 %-0.2 %-0.2 % eye drops (Artificial Tears ([id number])) valproic acid (as sodium salt) 250 500 mg PO QID 03/21/23 08/20/23 mg/5 mL oral solution calcium carbonate 500 mg/5 mL (as 1,250 mg feeding tube Q6H PRN 07/08/23 08/20/23 calcium carb 1,250 mg/5 mL) oral Heartburn suspension clobazam 10 mg tablet 10 mg feeding tube DAILY 07/08/23 08/20/23 guaifenesin 100 mg/5 mL oral liquid 600 mg feeding tube Q6HR 07/08/23 08/20/23 ipratropium 0.5 mg-albuterol 3 mg 3 ml inhalation Q4H 07/08/23 08/20/23 (2.5 mg base)/3 mL nebulization soln magnesium citrate 300 ml PO DAILY PRN Constipation 07/08/23 08/20/23 magnesium citrate (Citroma oral 296 ml feeding tube DAILY PRN 07/08/23 08/20/23 solution) Constipation Allergies Allergy/AdvReac Type Severity Reaction Status Date / Time clonazepam Allergy Unknown Unknown Verified 09/04/23 08:00 Review of Systems Review of Systems: ROS unobtainable: Yes unobtainable due to endotracheal tube (patient trach dependent and non verbal due to prior CVA) PMFSH Past Medical History Medical History Acute and chronic respiratory failure with hypoxia Aphasia following cerebral infarction Benign prostatic hyperplasia Cerebrovascular accident Residual expressive aphasia and dysphagia. Chronic obstructive pulmonary disease Epilepsy, unspecified, not intractable, with status epilepticus Esophageal diverticulum Gastroparesis Hemiplegia and hemiparesis following cerebral infarction affecting left non-dominant side History of acute pulmonary edema Iron deficiency anemia 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, not intractable, with status epilepticus Seizure disorder Unspecified severe protein-calorie malnutrition Vascular dementia with psychotic disturbance Surgical History Surgical History (Reviewed 09/11/23 @ 05:19 by James
--- NOTE | 2023-09-21 14:16 | ECG_ITS ---
SEE SCANNED COPY FOR CONFIRMED REPORT MTDD
--- NOTE | 2023-09-21 16:52 | PC.NURSE ---
Blood cultures drawn by [facility] vascular access nurse. This RN sent them due to Juan Jose leaving department prior to sending labs.
[2023-09-21 16:57] LABS: Basophils Percent Auto 0.3 % (0.2-1.2); Eosinophils Absolute Auto 0.5 K/mm3 (0-0.3); Eosinophils Percent Auto 5.2 % (0-4.4); Hematocrit 39.8 % (42.0-52.0); Immature Granulocyte Absolute 0.01 K/mm3 (0.00-0.031); Immature Granulocyte Percent A 0.1 % (0-0.5); Lymphocytes Absolute Auto 2.68 K/mm3 (0.9-3.2); Lymphocytes Percent Auto 31.1 % (18.3-44.2); Mean Corpuscular HGB Conc 32.7 g/dl (32-36); Mean Corpuscular Hemoglobin 32.4 pg (26-34); Mean Corpuscular Volume 99.3 fl (80-100); Mean Platelet Volume 13.9 fl (7.4-10.4); Monocytes Absolute Auto 0.9 K/mm3 (0.1-0.6); Monocytes Percent Auto 10.1 % (2.6-8.5); Neutrophils Absolute Auto 4.6 K/mm3 (1.3-6.7); Neutrophils Percent Auto 53.2 % (45.5-73.1); Platelet Count Result 137 k/mm3 (150-375); Red Blood Count 4.01 M/mm3 (4.6-6.20); Red Cell Distribution Width 13.8 % (11.5-14.5); White Blood Count 8.6 K/mm3 (4.5-10.0)
[2023-09-21 17:06] LABS: Lactic Acid Reflex 1.3 mmol/L (0.7-2.0); Partial Thromboplastin Time 33.2 Seconds (22.3-36.8); Prothrombin Time 13.6 Seconds (11.1-14.7)
[2023-09-21 17:08] LABS: Alanine Aminotransferase 13 U/L (6-50); Alkaline Phosphatase 92 U/L (38-126); Anion Gap 3 mmol/L (4-12); Aspartate Amino Transferase 23 U/L (17-59); Bilirubin,Total 0.4 mg/dL (0.2-1.3); Blood Urea Nitrogen 13 mg/dL (9-20); CRP 0.6 mg/dL (<1.0); Carbon Dioxide 31 mmol/L (22-30); Chloride 108 mmol/L (98-107); Estimated CRCL calculation 116 ml/min; Estimated Glomerular Filt Rate > 60; Glucose 94 mg/dL (65-110); Potassium 4.4 mmol/L (3.4-5.0); Sodium 142 mmol/L (137-145)
[2023-09-21 17:17] LABS: Troponin I < 0.012 ng/mL (0.000-0.034)
[2023-09-21 17:31] LABS: Influenza A QL RT-PCR Negative (Negative); Influenza B QL RT-PCR Negative (Negative); RSV RNA, RT-PCR Negative (Negative); SARS-CoV-2 RNA PCR Negative (Negative)
[2023-09-21 19:02] LABS: Appearance Urine Cloudy (Clear); Bacteria Urine None Seen /hpf; Bilirubin Urine Negative (Negative); Blood Urine Negative (Negative); Color Urine Yellow (Yellow); Glucose Urine UA Negative (Negative); Ketones Urine Negative (Negative); Leukocyte Esterase Ur Negative LEU/UL (Negative); Nitrate Urine Negative (Negative); Non Pathogenic Casts 0-2; Protein Urine Negative (Negative); RBC Urine 0-2 /hpf (0-2); Specific Grav Ur 1.019 (1.001-1.035); Squamous Epithelial Cell Urine None Seen /hpf (Few); WBC Urine 0-5 /hpf (0-3); pH Urine 8.5 (5.0-9.0)
[2023-09-21 19:05] LABS: Add Urine Microscopic? YES
--- NOTE | 2023-09-21 21:00 | PC.NURSE ---
Attempted to call report to [facility]iel [facility] of [facility] for report x2, no answer
--- NOTE | 2023-09-21 22:58 | PC.NURSE ---
Called [facility] at [phone]. [facility] declined transport.
== END 2023-09-22 00:20 ==
PROVIDERS: Emergency Provider Student in an Organized Health Care Education/Training Program; PCP Internal Medicine
DX: J39.8 Other specified diseases of upper respiratory tract (principal); F01.52 Vascular dementia, unspecified severity, with psychotic disturbance; I69.920 Aphasia following unspecified cerebrovascular disease; I69.991 Dysphagia following unspecified cerebrovascular disease; R13.10 Dysphagia, unspecified; I69.954 Hemiplegia and hemiparesis following unspecified cerebrovascular disease affecting left non-dominant side; J44.9 Chronic obstructive pulmonary disease, unspecified; J96.11 Chronic respiratory failure with hypoxia; G40.001 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, not intractable, with status epilepticus; N40.0 Benign prostatic hyperplasia without lower urinary tract symptoms; K31.84 Gastroparesis; D50.9 Iron deficiency anemia, unspecified; Z93.0 Tracheostomy status; Z89.612 Acquired absence of left leg above knee; R94.31 Abnormal electrocardiogram [ECG] [EKG]
CPT/HCPCS: 36415; 36600; 71045; 80053; 81001; 82375; 82805; 83050; 83605; 84484; 85025; 85055; 85610; 85730; 86140; 87040; 87070; 87205; 87637; 93005; 99284

== ENCOUNTER 2023-09-23 19:20 | Emergency (ER) | payer OTHER, SELFPAY ==
[2023-09-23 19:18] VITALS: BP 133/84; PULSE 71; RESP 17; TEMP 36.6; O2SAT 99
[2023-09-23 19:25] VITALS: RESP 17
--- NOTE | 2023-09-23 19:35 | ED.RECABL ---
HPI - Recheck/Abnormal Lab/Rx General Chief Complaint: Recheck/Abnormal Lab/Rx Stated Complaint: TRACH PROBLEMS Time Seen by Provider: 09/23/23 19:35 History of Present Illness HPI narrative: Patient is a 63 year old male with history of CVA, trach dependant, S/P BKA here with dislodged trach. Patient reportedly had a 7.5 trach in at his facility, they found it out when the rounded on him. They placed a 6.5 trach and sent him into the ER. Patient saturating normal. He did reportedly have a large mucous cough on arrival which was suctioned. He is in no respiratory distress with no additional issues. Patient states he feels great and is asking for lights to be turned off to sleep. Related Data Home Medications Medication Instructions Recorded Confirmed atorvastatin 40 mg tablet 40 mg feeding tube QHS 11/14/22 08/20/23 folic acid 1 mg tablet 1 mg feeding tube DAILY 11/14/22 08/20/23 lacosamide 200 mg tablet 200 mg feeding tube Q12H 11/14/22 08/20/23 aspirin 81 mg chewable tablet 81 mg feeding tube DAILY 11/15/22 08/20/23 metoprolol tartrate 25 mg tablet 25 mg feeding tube Q12H 12/18/22 08/20/23 polyethylene glycol 3350 17 17 g feeding tube Q12H 12/18/22 08/20/23 gram/dose oral powder bisacodyl 10 mg rectal suppository 10 mg RECTAL DAILY PRN Constipation 02/11/23 08/20/23 sennosides 8.6 mg tablet (senna) 8.6 mg feeding tube HS PRN 02/11/23 08/20/23 Constipation sodium phosphates 19 gram-7 197 ml RECTAL ONCE 02/11/23 08/20/23 gram/118 mL enema (Fleet Enema) thiamine HCl (vitamin B1) 100 mg 100 mg feeding tube DAILY 02/11/23 08/20/23 tablet clobazam 10 mg tablet 15 mg feeding tube HS 03/21/23 08/20/23 famotidine 20 mg tablet 20 mg feeding tube Q12H 03/21/23 08/20/23 levetiracetam 100 mg/mL oral 2,000 mg feeding tube Q12H 03/21/23 08/20/23 solution (Keppra) peg [id number]-utpezzskjwet-eyosznet 1 1 drp EACH EYE 4-6XD PRN Dry Eyes 03/21/23 08/20/23 %-0.2 %-0.2 % eye drops (Artificial Tears ([id number])) valproic acid (as sodium salt) 250 500 mg PO QID 03/21/23 08/20/23 mg/5 mL oral solution calcium carbonate 500 mg/5 mL (as 1,250 mg feeding tube Q6H PRN 07/08/23 08/20/23 calcium carb 1,250 mg/5 mL) oral Heartburn suspension clobazam 10 mg tablet 10 mg feeding tube DAILY 07/08/23 08/20/23 guaifenesin 100 mg/5 mL oral liquid 600 mg feeding tube Q6HR 07/08/23 08/20/23 ipratropium 0.5 mg-albuterol 3 mg 3 ml inhalation Q4H 07/08/23 08/20/23 (2.5 mg base)/3 mL nebulization soln magnesium citrate 300 ml PO DAILY PRN Constipation 07/08/23 08/20/23 magnesium citrate (Citroma oral 296 ml feeding tube DAILY PRN 07/08/23 08/20/23 solution) Constipation Allergies Allergy/AdvReac Type Severity Reaction Status Date / Time clonazepam Allergy Unknown Unknown Verified 09/04/23 08:00 Review of Systems Review of Systems: ROS unobtainable: Yes unobtainable due to endotracheal tube (largely non verbal) PMFSH Past Medical History Medical History Acute and chronic respiratory failure with hypoxia Aphasia following cerebral infarction Benign prostatic hyperplasia Cerebrovascular accident Residual expressive aphasia and dysphagia. Chronic obstructive pulmonary disease Epilepsy, unspecified, not intractable, with status epilepticus Esophageal diverticulum Gastroparesis Hemiplegia and hemiparesis following cerebral infarction affecting left non-dominant side History of acute pulmonary edema Iron deficiency anemia 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, not intractable, with status epilepticus Seizure disorder Unspecified severe protein-calorie malnutrition Vascular dementia with psychotic disturbance Surgical History Surgical History History of left above knee amputation History of tracheostomy Family History Family Histor
[2023-09-23 20:23] VITALS: BP 106/79; PULSE 88; RESP 19; O2SAT 94
--- NOTE | 2023-09-23 21:27 | PC.NURSE ---
Patient brief changed and patient repositioned. Patient also suctioned again upon request. Patient tolerated well.
[2023-09-23 21:28] VITALS: BP 127/80; PULSE 71; RESP 17; O2SAT 97
--- NOTE | 2023-09-23 22:01 | PC.NURSE ---
EMS here to transport patient back to [facility].
== END 2023-09-23 22:13 ==
PROVIDERS: Emergency Provider Student in an Organized Health Care Education/Training Program; PCP Internal Medicine
DX: Z43.0 Encounter for attention to tracheostomy (principal); F01.52 Vascular dementia, unspecified severity, with psychotic disturbance; I69.920 Aphasia following unspecified cerebrovascular disease; I69.991 Dysphagia following unspecified cerebrovascular disease; R13.10 Dysphagia, unspecified; I69.954 Hemiplegia and hemiparesis following unspecified cerebrovascular disease affecting left non-dominant side; J44.9 Chronic obstructive pulmonary disease, unspecified; J96.11 Chronic respiratory failure with hypoxia; G40.001 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, not intractable, with status epilepticus; N40.0 Benign prostatic hyperplasia without lower urinary tract symptoms; K31.84 Gastroparesis; D50.9 Iron deficiency anemia, unspecified; Z89.612 Acquired absence of left leg above knee; Z79.82 Long term (current) use of aspirin
CPT/HCPCS: 99282

== ENCOUNTER 2023-10-03 15:30 | Emergency (ER) | payer OTHER, SELFPAY ==
--- NOTE | ~2023-10-03 | XR_ITS ---
EXAMINATION: XR chest 1V portable DATE: 10/03/2023 16:46 INDICATION: Tracheostomy exchange. TECHNIQUE: A single frontal view of the chest was obtained. COMPARISON: Chest single view 09/21/2023, CT abdomen and pelvis 08/20/2023 FINDINGS: There are airspace opacities at the lung bases. No pleural effusion or pneumothorax. The he art size is normal. There are prominent pericardial fat pads. There is a tracheostomy tube in expecte d position. A right upper extremity peripherally inserted central venous catheter (PICC) is seen with tip at the superior cavoatrial junction. IMPRESSION: 1. Tracheostomy tube in expected position. 2. Airspace opacities at the lung bases with improvement on the right, consistent with atelectasis/sc arring versus pneumonia. Reviewed, dictated and finalized at location A. IMPRESSION: 1. Tracheostomy tube in expected position. 2. Airspace opacities at the lung bases with improvement on the right, consiste nt with atelectasis/scarring versus pneumonia.
[2023-10-03 16:03] VITALS: RESP 18; O2SAT 98
[2023-10-03 16:07] VITALS: BP 179/91; PULSE 80; RESP 18; TEMP 36.3; O2SAT 98
--- NOTE | 2023-10-03 16:15 | PC.NURSE ---
Dr. Cash and RT at bedside. Suction at bedside, 6.[address] trach replaced by EDP [address]. Cash at 1615. Spontaneous expectoration from trach, pink tinged sputum suctioned by RT. Pt oxygen saturation remained 100% on room air.
[2023-10-03 16:17] VITALS: BP 156/92; PULSE 88; RESP 20; O2SAT 100
--- NOTE | 2023-10-03 16:40 | ED.GENADULT ---
HPI - General Adult General Chief complaint: Unspecified Stated complaint: replace trach Time Seen by Provider: 10/03/23 15:55 History of Present Illness HPI narrative: 63-year-old male with a tracheostomy in place presents to emergency department from alf for a trach exchange. Patient trach came out at the alf and they did not have the proper size so instead of his 6.5 they replaced it with a 4 and patient was transferred to the emergency department by EMS. Upon arrival emergency department patient denies any pain or complaint. Patient is at his normal baseline. Related Data Home Medications Medication Instructions Recorded Confirmed atorvastatin 40 mg tablet 40 mg feeding tube QHS 11/14/22 08/20/23 folic acid 1 mg tablet 1 mg feeding tube DAILY 11/14/22 08/20/23 lacosamide 200 mg tablet 200 mg feeding tube Q12H 11/14/22 08/20/23 aspirin 81 mg chewable tablet 81 mg feeding tube DAILY 11/15/22 08/20/23 metoprolol tartrate 25 mg tablet 25 mg feeding tube Q12H 12/18/22 08/20/23 polyethylene glycol 3350 17 17 g feeding tube Q12H 12/18/22 08/20/23 gram/dose oral powder bisacodyl 10 mg rectal suppository 10 mg RECTAL DAILY PRN Constipation 02/11/23 08/20/23 sennosides 8.6 mg tablet (senna) 8.6 mg feeding tube HS PRN 02/11/23 08/20/23 Constipation sodium phosphates 19 gram-7 197 ml RECTAL ONCE 02/11/23 08/20/23 gram/118 mL enema (Fleet Enema) thiamine HCl (vitamin B1) 100 mg 100 mg feeding tube DAILY 02/11/23 08/20/23 tablet clobazam 10 mg tablet 15 mg feeding tube HS 03/21/23 08/20/23 famotidine 20 mg tablet 20 mg feeding tube Q12H 03/21/23 08/20/23 levetiracetam 100 mg/mL oral 2,000 mg feeding tube Q12H 03/21/23 08/20/23 solution (Keppra) peg 151-[id number]-upfyscfz 1 1 drp EACH EYE 4-6XD PRN Dry Eyes 03/21/23 08/20/23 %-0.2 %-0.2 % eye drops (Artificial Tears ([id number])) valproic acid (as sodium salt) 250 500 mg PO QID 03/21/23 08/20/23 mg/5 mL oral solution calcium carbonate 500 mg/5 mL (as 1,250 mg feeding tube Q6H PRN 07/08/23 08/20/23 calcium carb 1,250 mg/5 mL) oral Heartburn suspension clobazam 10 mg tablet 10 mg feeding tube DAILY 07/08/23 08/20/23 guaifenesin 100 mg/5 mL oral liquid 600 mg feeding tube Q6HR 07/08/23 08/20/23 ipratropium 0.5 mg-albuterol 3 mg 3 ml inhalation Q4H 07/08/23 08/20/23 (2.5 mg base)/3 mL nebulization soln magnesium citrate 300 ml PO DAILY PRN Constipation 07/08/23 08/20/23 magnesium citrate (Citroma oral 296 ml feeding tube DAILY PRN 07/08/23 08/20/23 solution) Constipation Allergies Allergy/AdvReac Type Severity Reaction Status Date / Time clonazepam Allergy Unknown Unknown Verified 09/04/23 08:00 Review of Systems Review of Systems: All systems reviewed & are unremarkable except as noted in HPI and below PMFSH Past Medical History Medical History Acute and chronic respiratory failure with hypoxia Aphasia following cerebral infarction Benign prostatic hyperplasia Cerebrovascular accident Residual expressive aphasia and dysphagia. Chronic obstructive pulmonary disease Epilepsy, unspecified, not intractable, with status epilepticus Esophageal diverticulum Gastroparesis Hemiplegia and hemiparesis following cerebral infarction affecting left non-dominant side History of acute pulmonary edema Iron deficiency anemia 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, not intractable, with status epilepticus Seizure disorder Unspecified severe protein-calorie malnutrition Vascular dementia with psychotic disturbance Surgical History Surgical History History of left above knee amputation History of tracheostomy Family History Family History Other Unknown family medical history Soc
--- NOTE | 2023-10-03 16:47 | PC.NURSE ---
xray at bedside
--- NOTE | 2023-10-03 17:44 | PC.NURSE ---
Massiel [facility]illan [facility] did not answer call
--- NOTE | 2023-10-03 17:57 | PC.NURSE ---
Called Massiel Begum for report for the second time without answer
--- NOTE | 2023-10-03 18:11 | PC.NURSE ---
Massiel Begum returned call, report given to Nataliia
[2023-10-03 18:12] VITALS: PULSE 76; RESP 20; O2SAT 98
[2023-10-03 19:14] VITALS: BP 158/87; PULSE 67; RESP 20; O2SAT 100
== END 2023-10-03 19:54 ==
PROVIDERS: Emergency Provider Emergency Medicine; PCP Internal Medicine
DX: Z43.0 Encounter for attention to tracheostomy (principal); F01.52 Vascular dementia, unspecified severity, with psychotic disturbance; J96.21 Acute and chronic respiratory failure with hypoxia; J44.9 Chronic obstructive pulmonary disease, unspecified; I69.920 Aphasia following unspecified cerebrovascular disease; I69.991 Dysphagia following unspecified cerebrovascular disease; I69.954 Hemiplegia and hemiparesis following unspecified cerebrovascular disease affecting left non-dominant side; G40.001 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, not intractable, with status epilepticus; N40.0 Benign prostatic hyperplasia without lower urinary tract symptoms; K31.84 Gastroparesis; Z89.612 Acquired absence of left leg above knee; Z79.82 Long term (current) use of aspirin
CPT/HCPCS: 43762; 71045; 99283

== ENCOUNTER 2023-11-23 01:50 | Emergency (ER) | payer OTHER, SELFPAY ==
[2023-11-23] VITALS (9 sets, daily range): BP systolic 130–154; BP diastolic 84–94; PULSE 74–92; RESP 16–20; TEMP 37.2; O2SAT 95–100
--- NOTE | 2023-11-23 02:00 | ED.GENADULT ---
HPI - General Adult General Chief complaint: Recheck/Abnormal Lab/Rx Stated complaint: DISLODGED TRACHEOSTOMY Time Seen by Provider: 11/23/23 01:59 Source: patient and EMS Mode of arrival: EMS Limitations: physical limitation History of Present Illness HPI narrative: 63-year-old male presents from nursing facility for trach replacement. Trach became dislodged. EMS on scene offered to replace trach as patient was otherwise asymptomatic and hemodynamically stable. Patient however declined and was thus transported for trach placement. Patient has no complaints other than requesting that his sister be notified. Related Data Home Medications Medication Instructions Recorded Confirmed atorvastatin 40 mg tablet 40 mg feeding tube QHS 11/14/22 08/20/23 folic acid 1 mg tablet 1 mg feeding tube DAILY 11/14/22 08/20/23 lacosamide 200 mg tablet 200 mg feeding tube Q12H 11/14/22 08/20/23 aspirin 81 mg chewable tablet 81 mg feeding tube DAILY 11/15/22 08/20/23 metoprolol tartrate 25 mg tablet 25 mg feeding tube Q12H 12/18/22 08/20/23 polyethylene glycol 3350 17 17 g feeding tube Q12H 12/18/22 08/20/23 gram/dose oral powder bisacodyl 10 mg rectal suppository 10 mg RECTAL DAILY PRN Constipation 02/11/23 08/20/23 sennosides 8.6 mg tablet (senna) 8.6 mg feeding tube HS PRN 02/11/23 08/20/23 Constipation sodium phosphates 19 gram-7 197 ml RECTAL ONCE 02/11/23 08/20/23 gram/118 mL enema (Fleet Enema) thiamine HCl (vitamin B1) 100 mg 100 mg feeding tube DAILY 02/11/23 08/20/23 tablet clobazam 10 mg tablet 15 mg feeding tube HS 03/21/23 08/20/23 famotidine 20 mg tablet 20 mg feeding tube Q12H 03/21/23 08/20/23 levetiracetam 100 mg/mL oral 2,000 mg feeding tube Q12H 03/21/23 08/20/23 solution (Keppra) peg 102-cozrtztfxzww-[id number] 1 1 drp EACH EYE 4-6XD PRN Dry Eyes 03/21/23 08/20/23 %-0.2 %-0.2 % eye drops (Artificial Tears ([id number])) valproic acid (as sodium salt) 250 500 mg PO QID 03/21/23 08/20/23 mg/5 mL oral solution calcium carbonate 500 mg/5 mL (as 1,250 mg feeding tube Q6H PRN 07/08/23 08/20/23 calcium carb 1,250 mg/5 mL) oral Heartburn suspension clobazam 10 mg tablet 10 mg feeding tube DAILY 07/08/23 08/20/23 guaifenesin 100 mg/5 mL oral liquid 600 mg feeding tube Q6HR 07/08/23 08/20/23 ipratropium 0.5 mg-albuterol 3 mg 3 ml inhalation Q4H 07/08/23 08/20/23 (2.5 mg base)/3 mL nebulization soln magnesium citrate 300 ml PO DAILY PRN Constipation 07/08/23 08/20/23 magnesium citrate (Citroma oral 296 ml feeding tube DAILY PRN 07/08/23 08/20/23 solution) Constipation Allergies Allergy/AdvReac Type Severity Reaction Status Date / Time clonazepam Allergy Unknown Unknown Verified 09/04/23 08:00 [facility] Past Medical History Medical History Acute and chronic respiratory failure with hypoxia Aphasia following cerebral infarction Benign prostatic hyperplasia Cerebrovascular accident Residual expressive aphasia and dysphagia. Chronic obstructive pulmonary disease Epilepsy, unspecified, not intractable, with status epilepticus Esophageal diverticulum Gastroparesis Hemiplegia and hemiparesis following cerebral infarction affecting left non-dominant side History of acute pulmonary edema Iron deficiency anemia 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, not intractable, with status epilepticus Seizure disorder Unspecified severe protein-calorie malnutrition Vascular dementia with psychotic disturbance Surgical History Surgical History History of left above knee amputation History of tracheostomy Family History Family History Other Unknown family medical history Social History Social History (Reviewed 11/23/23 @ 08:07 by Anna Enriquez
--- NOTE | 2023-11-23 02:02 | PC.NURSE ---
Pt placed on 4L o2 nasal cannula over trach for comfort.
--- NOTE | 2023-11-23 02:03 | PC.NURSE ---
Respiratory arrived and replaced pt trach replaced. Call made to [employer] requesting trach neck ties.
--- NOTE | 2023-11-23 02:18 | PC.NURSE ---
Call made to warehouse shipper requesting a replacement trach to have at the bedside in the ED/take back to the alf. Size 6.5 Cuffed Shiley with inner cannula
--- NOTE | 2023-11-23 03:00 | PCRCNOTE ---
Tracheostomy patient arrived to the ED with no trach tube in place. Patient comes from a shelter and had his spare trach with him bedside. Pt was in no acute distress and oxygenating fine. Two RT's inserted patients new trach tube with a obturator, then proceeded to insert a inner cannula. A new dressing and ties were applied. Spare trach, obturator, and trach kit at bedside. Pt is placed on high flow oxygen therapy for humidity purposes, on room air. Patient has been suctioned prn.
--- NOTE | 2023-11-23 03:55 | PC.NURSE ---
Voicemail left for pt sister with an update per pt request.
--- NOTE | 2023-11-23 08:27 | PC.NURSE ---
Suctioned via trach with small amount clear mucus return. Tolerated well.
== END 2023-11-23 10:46 ==
PROVIDERS: Emergency Provider Student in an Organized Health Care Education/Training Program; PCP Internal Medicine
DX: J95.03 Malfunction of tracheostomy stoma (principal); F01.50 Vascular dementia, unspecified severity, without behavioral disturbance, psychotic disturbance, mood disturbance, and anxiety; I69.320 Aphasia following cerebral infarction; I69.391 Dysphagia following cerebral infarction; R13.10 Dysphagia, unspecified; I69.354 Hemiplegia and hemiparesis following cerebral infarction affecting left non-dominant side; J44.9 Chronic obstructive pulmonary disease, unspecified; J96.11 Chronic respiratory failure with hypoxia; G40.001 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, not intractable, with status epilepticus; K31.84 Gastroparesis; N40.0 Benign prostatic hyperplasia without lower urinary tract symptoms; D50.9 Iron deficiency anemia, unspecified; Z89.612 Acquired absence of left leg above knee; Z79.82 Long term (current) use of aspirin; Z79.899 Other long term (current) drug therapy
CPT/HCPCS: 43762; 99284

== ENCOUNTER 2023-12-05 01:21 | Emergency (ER) | payer OTHER, SELFPAY ==
[2023-12-05] VITALS (13 sets, daily range): BP systolic 135–155; BP diastolic 88–95; PULSE 96–111; RESP 14–22; TEMP 37.2; O2SAT 91–100
--- NOTE | ~2023-12-05 | XR_ITS ---
Portable chest x-ray Comparison: 10/03/2023 Clinical History: Cough Findings: Tracheostomy cannula present. Lungs are clear, without focal consolidation or pleural effu asha. Cardiomediastinal silhouette is stable. Bones and soft tissues are unremarkable. Impression: Clear lungs. Tracheostomy cannula. Reviewed, dictated and finalized at location . Impression: Clear lungs. Tracheostomy cannula.
--- NOTE | ~2023-12-05 | CT_ITS ---
CT of the Abdomen and Pelvis: Indication: Abdominal distention Technique: 2.5 mm axial scans were obtained through the abdomen and pelvis following intravenous adm inistration of 100 cc of Omnipaque 350. Dose reduction technique was used on this scan by utilizing a utomated exposure control and iterative reconstruction technique. The dose-length product (DLP) was 1 244.66 mGy-cm. COMPARISON: 08/20/2023 Findings: Scans through the lung bases demonstrated probable minimal left pleural effusion and mild left basilar atelectasis. There is consolidation at the medial right lung base, which could reflect a telectasis versus possibly pneumonia.. The liver, spleen, pancreas, gallbladder, and adrenal glands are within normal limits. There are smal l bilateral nonobstructing renal stones. Questionable mild haziness about the right kidney. No eviden ce of aortic aneurysm. No lymphadenopathy. No bowel obstruction or bowel wall thickening. There is no evidence to suggest acute appendicitis. Images through the pelvis were performed. Urinary bladder collapsed around Jensen catheter. No pelvic mass seen. No ascites. Impression: Bibasilar atelectasis versus pneumonia. Correlate clinically. Small bilateral nonobstructing renal stones. Questionable minimal haziness about the right kidney. Correlate for any possibility of pyelonephritis . Reviewed, dictated and finalized at location . Impression: Bibasilar atelectasis versus pneumonia. Correlate clinically. Small bilateral nonobstructing renal stones. Questionable minimal haziness about the right kidney. Correlate for any possibi lity of pyelonephritis.
--- NOTE | 2023-12-05 02:59 | ED.ABDPAIN ---
HPI - Abdominal Pain General Chief Complaint: Abdominal Pain Stated Complaint: abd pain Time Seen by Provider: 12/05/23 01:29 History of Present Illness HPI narrative: Patient is a 63-year-old male, trach dependent, status post BKA, aphasia following a CVA, well known to this ER here with abdominal distension. Patient reportedly was having some abdominal pain and distension, complaining of some tenderness when they examined him. He was found to be retaining urine upwards of 300 mL, Jensen catheter was placed at his facility. He then had a large bowel movement at this facility and notes that his symptoms have significantly improved since that time. He has had multiple episodes of diarrhea here in the emergency department. He believes he last had a bowel movement yesterday. He denies fever or chills. He does not know if he has recently been on antibiotics. He believes they were giving him medications for constipation today. His medication list includes bisacodyl suppositories and senna. He denies respiratory symptoms. Related Data Home Medications Medication Instructions Recorded Confirmed atorvastatin 40 mg tablet 40 mg feeding tube QHS 11/14/22 08/20/23 folic acid 1 mg tablet 1 mg feeding tube DAILY 11/14/22 08/20/23 lacosamide 200 mg tablet 200 mg feeding tube Q12H 11/14/22 08/20/23 aspirin 81 mg chewable tablet 81 mg feeding tube DAILY 11/15/22 08/20/23 metoprolol tartrate 25 mg tablet 25 mg feeding tube Q12H 12/18/22 08/20/23 polyethylene glycol 3350 17 17 g feeding tube Q12H 12/18/22 08/20/23 gram/dose oral powder bisacodyl 10 mg rectal suppository 10 mg RECTAL DAILY PRN Constipation 02/11/23 08/20/23 sennosides 8.6 mg tablet (senna) 8.6 mg feeding tube HS PRN 02/11/23 08/20/23 Constipation sodium phosphates 19 gram-7 197 ml RECTAL ONCE 02/11/23 08/20/23 gram/118 mL enema (Fleet Enema) thiamine HCl (vitamin B1) 100 mg 100 mg feeding tube DAILY 02/11/23 08/20/23 tablet clobazam 10 mg tablet 15 mg feeding tube HS 03/21/23 08/20/23 famotidine 20 mg tablet 20 mg feeding tube Q12H 03/21/23 08/20/23 levetiracetam 100 mg/mL oral 2,000 mg feeding tube Q12H 03/21/23 08/20/23 solution (Keppra) peg [id number]-[id number] 1 1 drp EACH EYE 4-6XD PRN Dry Eyes 03/21/23 08/20/23 %-0.2 %-0.2 % eye drops (Artificial Tears ([id number])) valproic acid (as sodium salt) 250 500 mg PO QID 03/21/23 08/20/23 mg/5 mL oral solution calcium carbonate 500 mg/5 mL (as 1,250 mg feeding tube Q6H PRN 07/08/23 08/20/23 calcium carb 1,250 mg/5 mL) oral Heartburn suspension clobazam 10 mg tablet 10 mg feeding tube DAILY 07/08/23 08/20/23 guaifenesin 100 mg/5 mL oral liquid 600 mg feeding tube Q6HR 07/08/23 08/20/23 ipratropium 0.5 mg-albuterol 3 mg 3 ml inhalation Q4H 07/08/23 08/20/23 (2.5 mg base)/3 mL nebulization soln magnesium citrate 300 ml PO DAILY PRN Constipation 07/08/23 08/20/23 magnesium citrate (Citroma oral 296 ml feeding tube DAILY PRN 07/08/23 08/20/23 solution) Constipation Allergies Allergy/AdvReac Type Severity Reaction Status Date / Time clonazepam Allergy Unknown Unknown Verified 09/04/23 08:00 Review of Systems Review of Systems: ROS unobtainable: Yes other (limited due to aphasia and trach dependance) PMFSH Past Medical History Medical History Acute and chronic respiratory failure with hypoxia Aphasia following cerebral infarction Benign prostatic hyperplasia Cerebrovascular accident Residual expressive aphasia and dysphagia. 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
[2023-12-05 03:41] LABS: Basophils Percent Auto 0.1 % (0.2-1.2); Eosinophils Absolute Auto 0.4 K/mm3 (0-0.3); Eosinophils Percent Auto 4.8 % (0-4.4); Hematocrit 41.6 % (42.0-52.0); Immature Granulocyte Absolute 0.01 K/mm3 (0.00-0.031); Immature Granulocyte Percent A 0.1 % (0-0.5); Immature Platelet Fraction Pct 25.1 % (0.9-11.2); Lymphocytes Absolute Auto 3.09 K/mm3 (0.9-3.2); Lymphocytes Percent Auto 35.1 % (18.3-44.2); Mean Corpuscular HGB Conc 33.7 g/dl (32-36); Mean Corpuscular Hemoglobin 32.6 pg (26-34); Mean Platelet Volume 13.8 fl (7.4-10.4); Monocytes Percent Auto 11.2 % (2.6-8.5); Neutrophils Absolute Auto 4.3 K/mm3 (1.3-6.7); Neutrophils Percent Auto 48.7 % (45.5-73.1); Platelet Count Result 133 k/mm3 (150-375); Red Blood Count 4.29 M/mm3 (4.6-6.20); Red Cell Distribution Width 12.8 % (11.5-14.5); White Blood Count 8.8 K/mm3 (4.5-10.0)
[2023-12-05 03:46] LABS: Appearance Urine Clear (Clear); Bacteria Urine None Seen /hpf; Bilirubin Urine Negative (Negative); Blood Urine Negative (Negative); Color Urine Yellow (Yellow); Glucose Urine UA Negative (Negative); Ketones Urine Trace mg/dL (Negative); Leukocyte Esterase Ur Trace LEU/UL (Negative); Nitrate Urine Negative (Negative); Non Pathogenic Casts 0-2; Protein Urine Negative (Negative); RBC Urine 0-2 /hpf (0-2); Specific Grav Ur 1.016 (1.001-1.035); Squamous Epithelial Cell Urine None Seen /hpf (Few); WBC Urine 0-5 /hpf (0-3); pH Urine 6.5 (5.0-9.0)
[2023-12-05 03:52] LABS: Lactic Acid Reflex 1.2 mmol/L (0.7-2.0)
[2023-12-05 04:08] LABS: Burr Cells 1+; Large Platelets Present; Platelet Clumps Present; Platelet Estimate Slightly Decreased (Adequate)
[2023-12-05 04:09] LABS: Atypical Lymphocytes Present; Giant Platelets Present; Schistocytes None Seen
[2023-12-05 04:10] LABS: Add Urine Microscopic? YES
[2023-12-05 04:33] LABS: Toxigenic C. Diff NEGATIVE (NEGATIVE)
[2023-12-05 04:40] LABS: Alanine Aminotransferase 15 U/L (6-50); Albumin Level 4.2 g/dL (3.5-5.1); Alkaline Phosphatase 109 U/L (38-126); Anion Gap 12 mmol/L (4-12); Aspartate Amino Transferase 27 U/L (17-59); Bilirubin,Total 0.8 mg/dL (0.2-1.3); Blood Urea Nitrogen 14 mg/dL (9-20); Calcium 9.8 mg/dL (8.4-10.2); Carbon Dioxide 24 mmol/L (22-30); Chloride 103 mmol/L (98-107); Estimated CRCL calculation 107 ml/min; Estimated Glomerular Filt Rate > 60; Glucose 86 mg/dL (65-110); Lipase 59 U/L (23-300); Sodium 139 mmol/L (137-145)
== END 2023-12-05 08:57 ==
PROVIDERS: Emergency Provider Student in an Organized Health Care Education/Training Program; PCP Internal Medicine
DX: R19.7 Diarrhea, unspecified (principal); R10.9 Unspecified abdominal pain; J96.21 Acute and chronic respiratory failure with hypoxia; I69.320 Aphasia following cerebral infarction; J44.9 Chronic obstructive pulmonary disease, unspecified; I63.9 Cerebral infarction, unspecified; G81.94 Hemiplegia, unspecified affecting left nondominant side; D64.9 Anemia, unspecified; G40.909 Epilepsy, unspecified, not intractable, without status epilepticus; F01.50 Vascular dementia, unspecified severity, without behavioral disturbance, psychotic disturbance, mood disturbance, and anxiety
CPT/HCPCS: 36415; 71045; 74176; 80053; 81001; 83605; 83690; 85025; 85055; 87493; 99284

== ENCOUNTER 2023-12-13 07:23 | Inpatient (IN) | payer OTHER, SELFPAY ==
[2023-12-13] VITALS (54 sets, daily range): BP systolic 121–192; BP diastolic 73–102; PULSE 90–131; RESP 18–35; TEMP 36.2–36.8; O2SAT 93–100; BMI 20.9
--- NOTE | ~2023-12-13 | CT_ITS ---
CT diagnostic chest wo [facility] Ordering provider: Misael Hobbs MD History: 63 years Male with . Respiratory distress . Comparison: April 20, 2023 Technique: CT chest without IV contrast. The dose-length product was 284.51 mGy-cm. FINDINGS: VISUALIZED THORACIC INLET: Normal. Tracheostomy tube is noted. MEDIASTINUM: Aorta/coronary arteries: Mild atheromatous disease. Heart/other: The heart is not enlarged. Lymph nodes: No mediastinal or hilar adenopathy. LUNGS: Pneumonia in the right lower lobe is noted. Minimal adjacent fluid is not excluded. No pulmona ry nodules or masses. No pneumothorax. VISUALIZED UPPER ABDOMEN: Tube is seen in the stomach. Small sliding hiatus hernia. Multiple calcific ations in the left kidney which may be stones. No hydronephrotic changes. Otherwise, the visualized u pper abdomen is normal. MUSCULOSKELETAL: Soft tissues: The superficial soft tissues are normal. Bones: Normal spine. Old healed fracture of the sternum is noted. IMPRESSION: 1. Pneumonia in the right lower lobe posteriorly. Minimal effusion cannot be excluded. 2. Status post placement of tracheostomy tube. 3. Tube seen in the stomach. 4. Left kidney stones. Reviewed, dictated and finalized at location A. IMPRESSION: 1. Pneumonia in the right lower lobe posteriorly. Minimal effusion cannot be e xcluded. 2. Status post placement of tracheostomy tube. 3. Tube seen in the stomach. 4. Left kidney stones.
--- NOTE | ~2023-12-13 | XR_ITS ---
XR chest 1V portable Ordering provider: Misael Hobbs MD History: 63 years Male with . RESP DISTRESS. PT HAS TRACH. SUCTIONING HAS HELPED . Comparison: December 05, 2023 FINDINGS: MEDIASTINUM: The cardiac silhouette is not enlarged. Tracheostomy tube is noted. LUNGS: No infiltrates, effusions or pneumothorax. OTHER: No free air under the diaphragm. Degenerative spine. IMPRESSION: No acute cardiopulmonary pathology. Reviewed, dictated and finalized at location A.
--- NOTE | ~2023-12-13 | US_ITS ---
EXAMINATION: US renal BI DATE: 12/16/2023 15:54 INDICATION: Elevated creatinine TECHNIQUE: Multiple ultrasound grayscale images of the kidneys were obtained. COMPARISON: None. FINDINGS: The right kidney measures 11.8 x 5.1 x 4.5 cm. The left kidney measures 11.5 x 4.8 x 4.8 cm. The kidn eys demonstrate normal echogenicity. There is no hydronephrosis in either kidney. No stones identifi ed. The bladder is decompressed around a Jensen catheter which limits evaluation. IMPRESSION: 1. Normal kidneys without hydronephrosis. Reviewed, dictated and finalized at location A.
--- NOTE | 2023-12-13 07:37 | ECG_ITS ---
Test Date: 2023-12-13 07:42:21 Measurements Intervals [place] Rate: 120 P: 0 IN: 0 QRS: -11 QRSD: 90 T: 73 QT: 300 QTc: 425 Interpretive Statements SINUS TACHYCARDIA CANNOT R/O SEPTAL INFARCT, AGE INDETERMINATE CONSIDER INFERIOR INFARCT, AGE INDETERMINATE BASELINE ARTIFACT- I, II, AVR, AVF ABNORMAL ECG No previous ECG available for comparison Electronically Signed On 12-13-2023 12:46:10 CDT by Dave Hernandez D.O.
--- NOTE | 2023-12-13 08:09 | ED_ITS ---
HPI - General Adult General Chief complaint: Shortness of Breath/Dyspnea Stated complaint: SOB History of Present Illness HPI narrative: This is a 63-year-old male with a trach from a [place] [facility] presenting for respiratory distress. Per EMS they were called for respiratory distress. They suction patient with some improvement. EMS also said that they pain getting called repeatedly to this facility for similar complaints from this patient. The patient himself is nonverbal. He is unable provide any information to the interview. Related Data Home Medications Medication Instructions Recorded Confirmed atorvastatin 40 mg tablet 40 mg feeding tube QHS 11/14/22 08/20/23 folic acid 1 mg tablet 1 mg feeding tube DAILY 11/14/22 08/20/23 lacosamide 200 mg tablet 200 mg feeding tube Q12H 11/14/22 08/20/23 aspirin 81 mg chewable tablet 81 mg feeding tube DAILY 11/15/22 08/20/23 metoprolol tartrate 25 mg tablet 25 mg feeding tube Q12H 12/18/22 08/20/23 polyethylene glycol 3350 17 17 g feeding tube Q12H 12/18/22 08/20/23 gram/dose oral powder bisacodyl 10 mg rectal suppository 10 mg RECTAL DAILY PRN Constipation 02/11/23 08/20/23 sennosides 8.6 mg tablet (senna) 8.6 mg feeding tube HS PRN 02/11/23 08/20/23 Constipation sodium phosphates 19 gram-7 197 ml RECTAL ONCE 02/11/23 08/20/23 gram/118 mL enema (Fleet Enema) thiamine HCl (vitamin B1) 100 mg 100 mg feeding tube DAILY 02/11/23 08/20/23 tablet clobazam 10 mg tablet 15 mg feeding tube HS 03/21/23 08/20/23 famotidine 20 mg tablet 20 mg feeding tube Q12H 03/21/23 08/20/23 levetiracetam 100 mg/mL oral 2,000 mg feeding tube Q12H 03/21/23 08/20/23 solution (Keppra) peg [id number] 1 1 drp EACH EYE 4-6XD PRN Dry Eyes 03/21/23 08/20/23 %-0.2 %-0.2 % eye drops (Artificial Tears ([id number])) valproic acid (as sodium salt) 250 500 mg PO QID 03/21/23 08/20/23 mg/5 mL oral solution calcium carbonate 500 mg/5 mL (as 1,250 mg feeding tube Q6H PRN 07/08/23 calcium carb 1,250 mg/5 mL) oral Heartburn suspension clobazam 10 mg tablet 10 mg feeding tube DAILY 07/08/23 08/20/23 guaifenesin 100 mg/5 mL oral liquid 600 mg feeding tube Q6HR 07/08/23 08/20/23 ipratropium 0.5 mg-albuterol 3 mg 3 ml inhalation Q4H 07/08/23 08/20/23 (2.5 mg base)/3 mL nebulization soln magnesium citrate 300 ml PO DAILY PRN Constipation 07/08/23 08/20/23 magnesium citrate (Citroma oral 296 ml feeding tube DAILY PRN 07/08/23 08/20/23 solution) Constipation Allergies Allergy/AdvReac Type Severity Reaction Status Date / Time clonazepam Allergy Unknown Unknown Verified 09/04/23 08:00 [facility] Past Medical History Medical History Acute and chronic respiratory failure with hypoxia Aphasia following cerebral infarction Benign prostatic hyperplasia Cerebrovascular accident Residual expressive aphasia and dysphagia. Chronic obstructive pulmonary disease Epilepsy, unspecified, not intractable, with status epilepticus Esophageal diverticulum Gastroparesis Hemiplegia and hemiparesis following cerebral infarction affecting left non- dominant side History of acute pulmonary edema Iron deficiency anemia 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, not intractable, with status epilepticus Seizure disorder Unspecified severe protein-calorie malnutrition Vascular dementia with psychotic disturbance Surgical History Surgical History History of left above knee amputation History of tracheostomy Family History Family History Other Unknown family medical history Social History Social History Social History: Surrogate medical decision maker: Adriane Babak, sibling. Code status: Full code. 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 EYES: EOMI, NOSE: Atraumatic NECK: Tracheostomy in place, copious secretions audible from door RESPIRATORY: Increased respiratory rate, diffuse rhonchi CARDIOVASCULAR: Tachycardic, regular ABDOMINAL: Non-distended MUSCULOSKELETAl: Left AKA NEURO: Alert, SKIN:: Warm, dry. Normal color PSYCHIATRIC: Mom removal Course Vital Signs Vital signs: Vital Signs Temperature 97.2 F L 12/13/23 07:27 Pulse Rate 118 H 12/13/23 07:27 Respiratory Rate 32 H 12/13/23 07:27 Blood Pressure 144/94 H 12/13/23 07:27 Pulse Oximetry 100 12/13/23 07:27 Oxygen Delivery Trach Collar 12/13/23 07:27 Oxygen Flow Rate 30 12/13/23 07:27 Fraction of Inspired Oxygen 21 12/13/23 07:27 Temperature 97.2 F L 12/13/23 07:27 Pulse Rate 98 12/13/23 11:47 Respiratory Rate 33 H 12/13/23 11:47 Blood Pressure 145/83 H 12/13/23 11:46 Pulse Oximetry 99 12/13/23 11:02 Oxygen Delivery Trach Collar 12/13/23 08:08 Oxygen Flow Rate 30 12/13/23 08:08 Fraction of Inspired Oxygen 21 12/13/23 07:50 Medical Decision Making MDM Narrative Medical decision making narrative: -Course: 63-year-old male sent home for worsening respiratory distress and increased secretions. On arrival patient was suctioned by respiratory therapy with copious amounts of secretions. His sepsis workup was been ordered. Patient found to be in AFib with a rate from 100-120. Patient given his home dose of metoprolol tartrate and 1 dose of IV Lopressor with improvement of heart rate. Chest x-ray was clear but high suspicion for pneumonia. CT showed right posterior lower lobe pneumonia. Elevated Drip score and high risk for drug resistance. Started on Pip/tazo, azithro, vanco. UA also indicative of infection which has been covered. Given 2 L NS. Patient will be admitted for further management. -DDX includes but is not limited to: Pneumonia, bronchitis, sepsis, mucous plugging dehydration UTI -Co-morbidities complicating care: trach dependent, CVA -Social determinants of health: correction resident -Hx from independent Sources: EMS report, NH paperwork -Independent interpretation of studies: White count 11.9. Metabolic panel unremarkable. Initial lactic 2.3. Troponin negative. BNP 500. Urine with 2+ leuk esterase, with 100 rbc's 21-50 white blood cells. Independent EKG interpretation: Rhythm AFib, Rate [120], [place] -[normal], [place] -[none], QRS [narrow], QTC [normal], T waves -[negative for concerning inversions], ST Segments - [Negative for concerning elevations] Final interpretations: Atrial fibrillation w/ RVR -Interventions: Zosyn, Zithromax, vanco, 2 L normal saline, 5 mg Lopressor, 25 mg metoprolol tartrate -Shared decision making / Disposition: Admitted Vital Signs Vital Signs: Vital Signs Temperature 97.2 F L 12/13/23 07:27 Pulse Rate 118 H 12/13/23 07:27 Respiratory Rate 32 H 12/13/23 07:27 Blood Pressure 144/94 H 12/13/23 07:27 Pulse Oximetry 100 12/13/23 07:27 Oxygen Delivery Trach Collar 12/13/23 07:27 Oxygen Flow Rate 30 12/13/23 07:27 Fraction of Inspired Oxygen 21 12/13/23 07:27 Temperature 97.2 F L 12/13/23 07:27 Pulse Rate 98 12/13/23 11:47 Respiratory Rate 33 H 12/13/23 11:47 Blood Pressure 145/83 H 12/13/23 11:46 Pulse Oximetry 99 12/13/23 11:02 Oxygen Delivery Trach Collar 12/13/23 08:08 Oxygen Flow Rate 30 12/13/23 08:08 Fraction of Inspired Oxygen 12/13/23 07:50 Lab Data 12/13/23 08:18 12/13/23 08:18 Labs: Lab Results 12/13/23 12/13/23 12/13/23 Range/Units 08:18 08:43 09:37 WBC 11.9 H (4.5-10.0) K/mm3 RBC 4.50 L (4.6-6.20) M/mm3 Hgb 14.6 (14.0-18.0) g/dL Hct 43.1 (42.0-52.0) % MCV 95.8 (80-100) fl MCH 32.4 (26-34) pg MCHC 33.9 (32-36) g/dl RDW 13.0 (11.5-14.5) % Plt Count 299 D (150-375) k/mm3 MPV 12.4 H (7.4-10.4) fl Immature Gran % (Auto) 0.4 (0-0.5) % Neut % (Auto) 64.1 (45.5-73.1) % Lymph % (Auto) 20.8 (18.3-44.2) % [place] % (Auto) 11.8 H (2.6-8.5) % Eos % (Auto) 2.6 (0-4.4) % Baso % (Auto) 0.3 (0.2-1.2) % Lymph # (Auto) 2.48 (0.9-3.2) K/mm3 [place] # (Auto) 1.4 H (0.1-0.6) K/mm3 Eos # (Auto) 0.3 (0-0.3) K/mm3 Baso # (Auto) 0.0 (0.0-0.1) K/mm3 Abs Immat Gran (auto) 0.05 H (0.00-0.031) K/mm3 Absolute Neuts (auto) 7.6 H (1.3-6.7) K/mm3 Absolute Nucleated RBC 0.000 (0.0-0.012) K/mm3 Nucleated RBC % 0.0 (0.0-0.2) % PT 13.5 (11.1-14.7) Seconds INR 1.0 APTT 33.8 (22.3-36.8) Seconds Sodium 137 (137-145) mmol/L Potassium 4.5 (3.4-5.0) mmol/L Chloride 101 (98-107) mmol/L Carbon Dioxide 26 (22-30) mmol/L Anion Gap 10 (4-12) mmol/L BUN 12 (9-20) mg/dL Creatinine 0.50 L (0.7-1.3) mg/dL Estim Creat Clear Calc 123 ml/min Estimated GFR > 60 (59 - ) Glucose 115 H (65-110) mg/dL Lactic Acid 2.3 H (0.7-2.0) mmol/L Calcium 9.4 (8.4-10.2) mg/dL Phosphorus 3.7 (2.5-4.5) mg/dL Magnesium 2.1 (1.6-2.3) mg/dL Total Bilirubin 0.4 (0.2-1.3) mg/dL AST 84 H (17-59) U/L ALT 97 H (6-50) U/L Alkaline Phosphatase 125 (38-126) U/L Troponin I < 0.012 (0.000-0.034) ng/mL NT-Pro-B Natriuret Pep 499 H (19.9-100) pg/mL Total Protein 8.0 (6.3-8.2) g/dL Albumin 4.0 (3.5-5.1) g/dL Lipase 67 (23-300) U/L TSH (Reflex) 3.120 (0.465-4.68) uIU/mL Urine Color Yellow (Yellow) Urine Appearance Clear (Clear) Urine pH 8.0 (5.0-9.0) Ur Specific [place] 1.009 (1.001-1.035) Urine Protein Trace (Negative) mg/dL Urine Glucose (UA) Negative (Negative) mg/dL Urine Ketones Negative (Negative) mg/dL Ur Blood (Man) 3+ H (Negative) Urine Nitrate Negative (Negative) Urine Bilirubin Negative (Negative) Urine Urobilinogen 1.0 (<2.0) mg/dL Leukocyte Esterase Rfl 2+ H (Negative) NOEL/UL Urine RBC 51-100 H (0-2) /hpf Urine WBC 21-50 H (0-3) /hpf Ur Squamous Epith Cells Occasional (Few) /hpf Urine Bacteria None seen /hpf Urine Casts 0-2 Nasal MRSA (PCR) (NOT DETECTE) Influenza A (RT-PCR) Negative (Negative) Influenza B (RT-PCR) Negative (Negative) RSV (RT-PCR) Negative (Negative) SARS-CoV-2 RNA (RT-PCR) Negative (Negative) 12/13/23 12/13/23 12/13/23 Range/Units 10:48 11:15 11:49 WBC (4.5-10.0) K/mm3 RBC (4.6-6.20) M/mm3 Hgb (14.0-18.0) g/dL Hct (42.0-52.0) % MCV (80-100) fl MCH (26-34) pg MCHC (32-36) g/dl RDW (11.5-14.5) % Plt Count (150-375) k/mm3 MPV (7.4-10.4) fl Immature Gran % (Auto) (0-0.5) % Neut % (Auto) (45.5-73.1) % Lymph % (Auto) (18.3-44.2) % [place] % (Auto) (2.6-8.5) % Eos % (Auto) (0-4.4) % Baso % (Auto) (0.2-1.2) % Lymph # (Auto) (0.9-3.2) K/mm3 [place] # (Auto) (0.1-0.6) K/mm3 Eos # (Auto) (0-0.3) K/mm3 Baso # (Auto) (0.0-0.1) K/mm3 Abs Immat Gran (auto) (0.00-0.031) K/mm3 Absolute Neuts (auto) (1.3-6.7) K/mm3 Absolute Nucleated RBC (0.0-0.012) K/mm3 Nucleated RBC % (0.0-0.2) % PT (11.1-14.7) Seconds INR APTT (22.3-36.8) Seconds Sodium (137-145) mmol/L Potassium (3.4-5.0) mmol/L Chloride (98-107) mmol/L Carbon Dioxide (22-30) mmol/L Anion Gap (4-12) mmol/L BUN (9-20) mg/dL Creatinine (0.7-1.3) mg/dL Estim Creat Clear Calc ml/min Estimated GFR (59 - ) Glucose (65-110) mg/dL Lactic Acid 2.3 H (0.7-2.0) mmol/L Calcium (8.4-10.2) mg/dL Phosphorus (2.5-4.5) mg/dL Magnesium (1.6-2.3) mg/dL Total Bilirubin (0.2-1.3) mg/dL AST (17-59) U/L ALT (6-50) U/L Alkaline Phosphatase (38-126) U/L Troponin I < 0.012 (0.000-0.034) ng/mL NT-Pro-B Natriuret Pep (19.9-100) pg/mL Total Protein (6.3-8.2) g/dL Albumin (3.5-5.1) g/dL Lipase (23-300) U/L TSH (Reflex) (0.465-4.68) uIU/mL Urine Color (Yellow) Urine Appearance (Clear) Urine pH (5.0-9.0) Ur Specific [place] (1.001-1.035) Urine Protein (Negative) mg/dL Urine Glucose (UA) (Negative) mg/dL Urine Ketones (Negative) mg/dL Ur Blood (Man) (Negative) Urine Nitrate (Negative) Urine Bilirubin (Negative) Urine Urobilinogen (<2.0) mg/dL Leukocyte Esterase Rfl (Negative) NOEL/UL Urine RBC (0-2) /hpf Urine WBC (0-3) /hpf Ur Squamous Epith Cells (Few) /hpf Urine Bacteria /hpf Urine Casts Nasal MRSA (PCR) Detected A* (NOT DETECTE) Influenza A (RT-PCR) (Negative) Influenza B (RT-PCR) (Negative) RSV (RT-PCR) (Negative) SARS-CoV-2 RNA (RT-PCR) (Negative) Discharge Plan Discharge Clinical Impression: Increased tracheal secretions, Pneumonia, Acute UTI, Atrial fibrillation with rapid ventricular response Patient Disposition: Still a Patient Condition: Serious Prescriptions: No Action bisacodyl 10 mg Suppository 10 mg RECTAL DAILY PRN (Reason: Constipation) Rx Instructions: if no results for MOM Fleet Enema 19-7 gram/118 mL Enema 197 ml RECTAL ONCE Rx Instructions: 1 application as needed for constipation if no results 1 day after suppository. sennosides [senna] 8.6 mg Tablet 8.6 mg feeding tube HS PRN (Reason: Constipation) Rx Instructions: constipation thiamine HCl (vitamin B1) 100 mg Tablet 100 mg feeding tube DAILY clobazam 10 mg Tablet 10 mg feeding tube DAILY magnesium citrate [Citroma] Solution 296 ml feeding tube DAILY PRN (Reason: Constipation) Rx Instructions: Give 296 ml per g tube as needed for constipation in AM if no results after enema. If no results within 1 hours of completion of bowel protocol, contact MD immediately for orders calcium carbonate 500 mg/5 mL (1,250 mg/5 mL) Suspension 1,250 mg feeding tube Q6H PRN (Reason: Heartburn) ipratropium-albuterol 0.5 mg-3 mg(2.5 mg base)/3 mL solution for nebulization 3 ml inhalation Q4H guaifenesin 100 mg/5 mL liquid 600 mg feeding tube Q6HR magnesium citrate Solution 300 ml PO DAILY PRN (Reason: Constipation) Rx Instructions: as needed for constipation in AM if no results after enema Eliquis 5 mg Tablet 5 mg PO Q12HR Qty: 60 0RF ipratropium-albuterol 0.5 mg-3 mg(2.5 mg base)/3 mL Solution For Nebulization 3 ml inhalation Q6HRT PRN (Reason: sob) Qty: 3 0RF atorvastatin 40 mg tablet 40 mg feeding tube QHS folic acid 1 mg tablet 1 mg feeding tube DAILY lacosamide 200 mg tablet 200 mg feeding tube Q12H aspirin 81 mg Tablet,Chewable 81 mg feeding tube DAILY polyethylene glycol 3350 17 gram/dose powder 17 g feeding tube Q12H metoprolol tartrate 25 mg tablet 25 mg feeding tube Q12H famotidine 20 mg tablet 20 mg feeding tube Q12H clobazam 10 mg tablet 15 mg feeding tube HS levetiracetam [Keppra] 100 mg/mL Solution 2,000 mg feeding tube Q12H valproic acid (as sodium salt) 250 mg/5 mL Solution 500 mg PO QID Artificial Tears([id number]) 1-0.2-0.2 % Drops 1 drp EACH EYE 4-6XD PRN (Reason: Dry Eyes) Follow-up/Referrals: Lauro,MD Burke [Primary Care Provider] -
[2023-12-13 08:29] LABS: Basophils Percent Auto 0.3 % (0.2-1.2); Eosinophils Absolute Auto 0.3 K/mm3 (0-0.3); Eosinophils Percent Auto 2.6 % (0-4.4); Hematocrit 43.1 % (42.0-52.0); Hemoglobin 14.6 g/dL (14.0-18.0); Immature Granulocyte Absolute 0.05 K/mm3 (0.00-0.031); Immature Granulocyte Percent A 0.4 % (0-0.5); Lymphocytes Absolute Auto 2.48 K/mm3 (0.9-3.2); Lymphocytes Percent Auto 20.8 % (18.3-44.2); Mean Corpuscular HGB Conc 33.9 g/dl (32-36); Mean Corpuscular Hemoglobin 32.4 pg (26-34); Mean Corpuscular Volume 95.8 fl (80-100); Mean Platelet Volume 12.4 fl (7.4-10.4); Monocytes Absolute Auto 1.4 K/mm3 (0.1-0.6); Monocytes Percent Auto 11.8 % (2.6-8.5); Neutrophils Absolute Auto 7.6 K/mm3 (1.3-6.7); Neutrophils Percent Auto 64.1 % (45.5-73.1); Platelet Count Result 299 k/mm3 (150-375); White Blood Count 11.9 K/mm3 (4.5-10.0)
[2023-12-13] MEDS: SODIUM CHLORIDE 0.9% IV 2,000 ML 999 ML IV CONT (08:29)
[2023-12-13 08:41] LABS: Lactic Acid Reflex 2.3 mmol/L (0.7-2.0)
[2023-12-13 08:42] LABS: Alanine Aminotransferase 97 U/L (6-50); Alkaline Phosphatase 125 U/L (38-126); Anion Gap 10 mmol/L (4-12); Aspartate Amino Transferase 84 U/L (17-59); Bilirubin,Total 0.4 mg/dL (0.2-1.3); Blood Urea Nitrogen 12 mg/dL (9-20); Calcium 9.4 mg/dL (8.4-10.2); Carbon Dioxide 26 mmol/L (22-30); Chloride 101 mmol/L (98-107); Estimated CRCL calculation 123 ml/min; Estimated Glomerular Filt Rate > 60; Glucose 115 mg/dL (65-110); Lipase 67 U/L (23-300); Magnesium 2.1 mg/dL (1.6-2.3); Phosphorus 3.7 mg/dL (2.5-4.5); Potassium 4.5 mmol/L (3.4-5.0); Sodium 137 mmol/L (137-145)
[2023-12-13 08:43] LABS: Prothrombin Time 13.5 Seconds (11.1-14.7)
[2023-12-13 08:44] LABS: Partial Thromboplastin Time 33.8 Seconds (22.3-36.8)
--- NOTE | 2023-12-13 08:48 | PC.NURSE ---
Suctioned via trach with small amount of clear sputum returned. Tolerated well.
[2023-12-13 08:54] LABS: NT Pro B Type Natriuretic Pept 499 pg/mL (19.9-100); Troponin I < 0.012 ng/mL (0.000-0.034)
[2023-12-13 09:50] LABS: Appearance Urine Clear (Clear); Bacteria Urine None Seen /hpf; Bilirubin Urine Negative (Negative); Blood Urine 3+ (Negative); Color Urine Yellow (Yellow); Glucose Urine UA Negative (Negative); Ketones Urine Negative (Negative); Leukocyte Esterase Ur 2+ LEU/UL (Negative); Nitrate Urine Negative (Negative); Non Pathogenic Casts 0-2; Protein Urine Trace mg/dL (Negative); RBC Urine 51-100 /hpf (0-2); Specific Grav Ur 1.009 (1.001-1.035); Squamous Epithelial Cell Urine Occasional /hpf (Few); WBC Urine 21-50 /hpf (0-3)
[2023-12-13 09:52] LABS: Add Urine Microscopic? YES
--- NOTE | 2023-12-13 10:06 | PC.NURSE ---
Frequently suctioned via trach with small amount clear sputum returned. Pt has good gag reflex and is able to cough.
[2023-12-13 10:39] LABS: Influenza A QL RT-PCR Negative (Negative); Influenza B QL RT-PCR Negative (Negative); RSV RNA, RT-PCR Negative (Negative); SARS-CoV-2 RNA PCR Negative (Negative)
[2023-12-13] MEDS: METOPROLOL TARTRATE INJ 5 MG/5 ML VIAL IV PUSH (10:46)
[2023-12-13] MEDS: METOPROLOL TARTRATE 50 MG TAB 25 MG PO (10:47)
[2023-12-13] MEDS: PIPERACILLN/TAZ 3.375GM/NS50ML 3.375 GM/50 ML BAG IVPB ×3 (10:57→23:37)
[2023-12-13] MEDS: AZITHROMYCIN 500 MG/NS 250 ML 500 MG/250 ML BAG 250 MG IVPB (10:59)
[2023-12-13 11:27] LABS: Reflex Lactic Acid Yes or No Add Lactic
--- NOTE | 2023-12-13 11:31 | ECG_ITS ---
Test Date: 2023-12-13 11:45:08 Measurements Intervals [place] Rate: 99 P: 68 VA: 162 QRS: -15 QRSD: 79 T: 70 QT: 325 QTc: 417 Interpretive Statements SINUS RHYTHM CANNOT R/O SEPTAL INFARCT, AGE INDETERMINATE CONSIDER INFERIOR INFARCT, AGE INDETERMINATE ABNORMAL ECG Compared to ECG 12/13/2023 07:42:21 HEART RATE HAS DECREASED Electronically Signed On 12-13-2023 11:51:11 CDT by Dave Hernandez D.O.
[2023-12-13 11:34] LABS: Troponin I < 0.012 ng/mL (0.000-0.034)
[2023-12-13 12:05] LABS: Lactic Acid 2.3 mmol/L (0.7-2.0)
[2023-12-13 12:32] LABS: MRSA (PCR) DETECTED (NOT DETECTE)
[2023-12-13] MEDS: VANCOMYCIN 1,750 MG/NS 500 ML 1,750 MG/500 ML BAG 250 MG IVPB (12:55)
--- NOTE | 2023-12-13 13:53 | PM.IMHP ---
H&P: HPI History of Present Illness Date/Time: 12/13/23 13:45 Chief Complaint: Shortness of breath. Narrative: This is a 63-year-old male with history of stroke, chronic respiratory failure status post tracheostomy and PEG tube, seizure disorder, and dementia who presented to the emergency department via EMS for evaluation of shortness of breath. He cannot provide much in the way of history but is able to nod and shake his head appropriately to some questions however the majority of the following history is obtained via a review of his electronic medical records. Sometime this morning he became hypoxic, short of breath, and quickly appeared to be in respiratory distress. This prompted a call to 911. On EMS arrival he appeared in distress and they were able to suction a large amount of secretions from his tracheostomy with improvement in his symptoms. There were no reports of fever, vomiting, or hemoptysis. At the time my evaluation he is alert and does not have any particular complaints. He denies chest and pleuritic pain, fever, nausea, and feelings of shortness of breath. In the ED: He was afebrile on arrival. SpO2 has been in the upper 90s on 30% oxygen per trach collar. Respiratory rates have been in the mid 20s. Blood pressures have been stable. Labs are significant for a WBC count of 11.9, hemoglobin 14.6, hematocrit 43.1%, platelet 299, lactic acid 2.3, AST 84, ALT 97, proBNP 499, troponin < 0.012. Nasal MRSA by PCR was positive. Influenza, RSV, and COVID were negative. Chest CT showed pneumonia in the right lower lobe posteriorly. He was fluid resuscitated and was started on azithromycin, piperacillin/tazobactam, and vancomycin and he is being admitted in this setting for further treatment. Review of Systems Review of Systems: Review of systems difficult to obtain given his expressive aphasia. [facility] Past Medical History Medical History (Updated 12/13/23 @ 15:04 by Natty Guzman PA-C) Benign prostatic hyperplasia Cerebrovascular accident Residual expressive aphasia, dysphagia, and left-sided weakness. Chronic obstructive pulmonary disease Deep venous thrombosis of upper extremity Esophageal diverticulum Gastroparesis Iron deficiency anemia Seizure disorder Vascular dementia with psychotic disturbance Surgical History Surgical History (Updated 12/13/23 @ 15:04 by Natty Guzman PA-C) History of gastrostomy tube placement History of left above knee amputation History of tracheostomy Family History Family History Other Unknown family medical history Social History Social History Social History: Surrogate medical decision maker: Adriane Hilliard, sibling. Code status: Full code. 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 Additional gender identity comments: Never Spiritual care concerns: No (Apostolic) Meds Home Medications and Allergies Home Medications Medication Instructions Recorded Confirmed Type atorvastatin 40 mg tablet 40 mg feeding tube QHS 11/14/22 12/13/23 History folic acid 1 mg tablet 1 mg feeding tube DAILY 11/14/22 12/13/23 History lacosamide 200 mg tablet 200 mg feeding tube Q12H 11/14/22 12/13/23 History aspirin 81 mg chewable tablet 81 mg feeding tube DAILY 11/15/22 12/13/23 History metoprolol tartrate 25 mg tablet 25 mg feeding tube Q12H 12/18/22 12/13/23 History polyethylene glycol 3350 17 17 g feeding tube Q12H 12/18/22 12/13/23 History gram/dose oral powder bisacodyl 10 mg rectal suppository 10 mg RECTAL DAILY PRN Constipation 02/11/23 12/13/23 History sennosides 8.6 mg tablet (senna) 8.6 mg feeding tube HS PRN 02/11/23 12/13/23 History Constipation sodium phosphates 19 gram-7 197 ml RECTAL ONCE 02/11/23 12/13/23 History gram/118 mL enema (Fleet Enema) thiamine HCl (vitamin B1) 100 mg 100 mg feeding tube DAILY 02/11/23 12/13/23 History tablet clobazam 10 mg tablet 15 mg feeding tube HS 03/21/23 12/13/23 History famotidine 20 mg tablet 20 mg feeding tube Q12H 03/21/23 12/13/23 History levetiracetam 100 mg/mL oral 2,000 mg feeding tube Q12H 03/21/23 12/13/23 History solution (Keppra) peg 249-[id number]-tubjyaxy 1 1 drp EACH EYE 4-6XD PRN Dry Eyes 03/21/23 12/13/23 History %-0.2 %-0.2 % eye drops (Artificial Tears ([id number])) valproic acid (as sodium salt) 250 500 mg PO QID 03/21/23 12/13/23 History mg/5 mL oral solution calcium carbonate 500 mg/5 mL (as 1,250 mg feeding tube Q6H PRN 07/08/23 12/13/23 History calcium carb 1,250 mg/5 mL) oral Heartburn suspension guaifenesin 100 mg/5 mL oral liquid 600 mg feeding tube Q6HR 07/08/23 12/13/23 History ipratropium 0.5 mg-albuterol 3 mg 3 ml inhalation Q4H PRN Shortness 07/08/23 12/13/23 History (2.5 mg base)/3 mL nebulization Of Breath soln magnesium citrate 300 ml PO DAILY PRN Constipation 07/08/23 12/13/23 History Jevity 1.5 Bruno 50 ml G-tube Q6H 12/13/23 12/13/23 History ibuprofen 200 mg tablet 600 mg feeding tube PRN 12/13/23 12/13/23 History lanolin alcohols-mineral 1 applic topical DAILY 12/13/23 12/13/23 History oil-w.petrolatum-ceresin topical cream (Minerin Creme topical) magnesium hydroxide 400 mg/5 mL 30 ml feeding tube PRN 12/13/23 12/13/23 History oral suspension (Milk of Magnesia) Allergies Allergy/AdvReac Type Severity Reaction Status Date / Time clonazepam Allergy Unknown Unknown Verified 12/13/23 13:56 Vital Signs Vital Signs - 24 hr 12/13/23 07:27 12/13/23 08:08 12/13/23 08:33 Temperature 97.2 F L Pulse Rate 118 H 112 H Respiratory Rate 32 H Blood Pressure 144/94 H Pulse Oximetry 100 97 Oxygen Delivery Trach Collar Trach Collar Oxygen Flow Rate 30 30 Fraction of Inspired Oxygen 21 12/13/23 07:32 12/13/23 07:33 12/13/23 07:45 Temperature Pulse Rate 118 H 118 H 122 H Respiratory Rate 32 H 33 H 29 H Blood Pressure 144/94 H Pulse Oximetry 100 100 100 Oxygen Delivery Oxygen Flow Rate Fraction of Inspired Oxygen 12/13/23 07:46 12/13/23 08:00 12/13/23 08:01 Temperature Pulse Rate 121 H 131 H 121 H Respiratory Rate 30 H 24 H 33 H Blood Pressure 141/90 H 192/102 H Pulse Oximetry 100 98 96 Oxygen Delivery Oxygen Flow Rate Fraction of Inspired Oxygen 12/13/23 08:15 12/13/23 08:16 12/13/23 08:30 Temperature Pulse Rate 116 H 117 H 123 H Respiratory Rate 35 H 32 H 20 Blood Pressure 121/82 Pulse Oximetry 99 99 100 Oxygen Delivery Oxygen Flow Rate Fraction of Inspired Oxygen 12/13/23 08:31 12/13/23 08:45 12/13/23 08:46 Temperature Pulse Rate 121 H 112 H 112 H Respiratory Rate 28 H 30 H 31 H Blood Pressure 174/94 H 145/83 H Pulse Oximetry 100 100 100 Oxygen Delivery Oxygen Flow Rate Fraction of Inspired Oxygen 12/13/23 08:47 12/13/23 09:04 12/13/23 09:15 Temperature Pulse Rate 112 H 113 H 112 H Respiratory Rate 31 H 26 H 29 H Blood Pressure Pulse Oximetry 100 95 96 Oxygen Delivery Oxygen Flow Rate Fraction of Inspired Oxygen 12/13/23 09:36 12/13/23 09:41 12/13/23 09:45 Temperature Pulse Rate 109 H 107 H 106 H Respiratory Rate 28 H 22 H 25 H Blood Pressure 147/78 H Pulse Oximetry 97 97 95 Oxygen Delivery Oxygen Flow Rate Fraction of Inspired Oxygen 12/13/23 07:50 12/13/23 10:46 12/13/23 10:47 Temperature Pulse Rate 122 H 114 H 114 H Respiratory Rate 24 H Blood Pressure Pulse Oximetry 98 Oxygen Delivery High Flow Therapy with Tr Oxygen Flow Rate 30 Fraction of Inspired Oxygen 21 12/13/23 09:46 12/13/23 10:00 12/13/23 10:01 Temperature Pulse Rate 104 H 106 H 111 H Respiratory Rate 23 H 22 H 25 H Blood Pressure 145/79 H 188/91 H Pulse Oximetry 96 93 94 Oxygen Delivery Oxygen Flow Rate Fraction of Inspired Oxygen 12/13/23 10:15 12/13/23 10:16 12/13/23 10:30 Temperature Pulse Rate 110 H 108 H 116 H Respiratory Rate 24 H 26 H 29 H Blood Pressure 150/91 H Pulse Oximetry 97 98 96 Oxygen Delivery Oxygen Flow Rate Fraction of Inspired Oxygen 12/13/23 10:31 12/13/23 10:45 12/13/23 10:46 Temperature Pulse Rate 116 H 100 100 Respiratory Rate 29 H 25 H 28 H Blood Pressure 135/82 151/80 H Pulse Oximetry 96 Oxygen Delivery Oxygen Flow Rate Fraction of Inspired Oxygen 12/13/23 11:00 12/13/23 11:01 12/13/23 11:02 Temperature Pulse Rate 97 98 98 Respiratory Rate 28 H 28 H 26 H Blood Pressure 139/77 Pulse Oximetry 97 97 99 Oxygen Delivery Oxygen Flow Rate Fraction of Inspired Oxygen 12/13/23 11:15 12/13/23 11:16 12/13/23 11:31 Temperature Pulse Rate 99 106 H 99 Respiratory Rate 28 H 23 H 27 H Blood Pressure 156/90 H 143/80 H Pulse Oximetry Oxygen Delivery Oxygen Flow Rate Fraction of Inspired Oxygen 12/13/23 11:33 12/13/23 11:46 12/13/23 11:47 Temperature Pulse Rate 99 99 98 Respiratory Rate 30 H 25 H 33 H Blood Pressure 145/83 H Pulse Oximetry Oxygen Delivery Oxygen Flow Rate Fraction of Inspired Oxygen Exam Narrative: General: Chronically ill-appearing gentleman in the semi-Voss position in bed. Weight: 68 kg. BMI: 20.9. HEENT: Rightward gaze. Pupils are reactive. Sclera anicteric. Conjunctiva mildly injected. Dry mucous membranes. Neck: Supple. No JVD or lymphadenopathy noted. Trachea is midline and tracheostomy is in place with a trach collar. Fair amount of secretions are noted and able to be suctioned. Respiratory: He does not appear in any acute respiratory distress. Audible upper airway rhonchi are heard but seemed to improve with cough. Lung sounds are coarse throughout. Cardiovascular: Tachycardic with S1-S2. Gastrointestinal: Abdomen is soft, flat, nontender, and nondistended with positive bowel sounds. G-tube in place. Genitourinary: Jensen catheter draining yellow urine. Skin: Warm and dry. No rash or lesions on limited exam. Extremities: No cyanosis, clubbing, or edema. Radial and right pedal pulses are palpable. Status post left ifbkx-fkr-fupk amputation. Neurological: Alert. Chronic facial asymmetry. Increased tone and spasticity of the right ham in arm. Attempts to communicate by nodding and shaking his head. Psychiatric: Unable to assess accurately. He is cooperative. H&P: Results Labs Labs: Short CBC 12/13/23 Range/Units 08:18 WBC 11.9 H (4.5-10.0) K/mm3 Hgb 14.6 (14.0-18.0) g/dL Hct 43.1 (42.0-52.0) % Plt Count 299 D (150-375) k/mm3 BMP 12/13/23 08:18 Sodium 137 Potassium 4.5 Chloride 101 Carbon Dioxide 26 BUN 12 Creatinine 0.50 L Glucose 115 H Calcium 9.4 Cardiac Enzymes 12/13/23 12/13/23 Range/Units 08:18 10:48 Troponin I < 0.012 < 0.012 (0.000-0.034) ng/mL Liver Function 12/13/23 Range/Units 08:18 Total Bilirubin 0.4 (0.2-1.3) mg/dL AST 84 H (17-59) U/L ALT 97 H (6-50) U/L Alkaline Phosphatase 125 (38-126) U/L Albumin 4.0 (3.5-5.1) g/dL Urine 12/13/23 Range/Units 09:37 Urine Color Yellow (Yellow) Urine Appearance Clear (Clear) Urine pH 8.0 (5.0-9.0) Ur Specific [place] 1.009 (1.001-1.035) Urine Protein Trace (Negative) mg/dL Urine Glucose (UA) Negative (Negative) mg/dL Impressions Chest X-Ray 12/13/23 08:45 IMPRESSION: 1. No acute cardiopulmonary pathology. Chest CT 12/13/23 10:03 IMPRESSION: 1. Pneumonia in the right lower lobe posteriorly. Minimal effusion cannot be excluded. 2. Status post placement of tracheostomy tube. 3. Tube seen in the stomach. 4. Left kidney stones. Assessment and Plan Assessment and plan (1) Pneumonia: Code(s): J18.9 - Pneumonia, unspecified organism Status: Acute (2) MRSA colonization: Code(s): Z22.322 - Carrier or suspected carrier of Methicillin resistant Staphylococcus aureus Status: Acute (3) Elevated LFTs: Code(s): R79.89 - Other specified abnormal findings of blood chemistry Status: Acute (4) Seizure disorder: Code(s): G40.909 - Epilepsy, unspecified, not intractable, without status epilepticus Status: Chronic Plan The patient presented to the emergency department for evaluation of shortness of breath and hypoxia this morning as detailed in HPI. Labs, imaging, EKG, and all reports were personally reviewed. EMS reportedly sections large amounts of secretions from his tracheostomy with improvement in his symptoms. CT scan today shows evidence of right lower lobe pneumonia posteriorly. May very well have tracheitis as well with copious secretions. Given his history of MRSA colonization and Pseudomonas aeruginosa in the sputum with varying sensitivities, he has been started on broad-spectrum antibiotics to include piperacillin/tazobactam, vancomycin, and azithromycin. Sputum cultures pending. Check Legionella and pneumococcal antigens as well as mycoplasma IgM. Continue scheduled bronchodilators, guaifenesin, and aggressive pulmonary toilet. AST and ALT are a bit elevated though his abdominal exam is benign. Continue to monitor for now. Vital signs were reviewed and they are stable. His home medications will be reviewed and resumed as appropriate. Findings and treatment plan were discussed with the patient. Questions were solicited and answered to satisfaction. The patient's medical management will be taken over by the hospitalist team in a.m. Quality VTE Prophylaxis VTE prophylaxis: pharmacologic ordered Hospitalist [facility] Advance Care Plan I have confirmed that the patient's Advanced Care Plan is present, code status is documented, or surrogate decision maker is listed in patient medical record.: Yes Medication Reconciliation I have utilized all available resources to obtain, update and review the patients current medications (includes all prescriptions, OTC, herbals, cannabis, and nutritional supplements).: Yes
--- NOTE | 2023-12-13 13:54 | ADMGEN ---
This patient, Bi Tabor, was admitted to IMU Room 200-01. Patient/family oriented to hospital policies and general routines including ID bracelet, bed and alarms, visiting hours, pain management, procedures, bathroom and other care routines, personal items, smoking policy, room service/diet, and visiting hours. Information on how to activate the Rapid Response Team has been discussed. Patient/Family are encouraged to report perceived risks to care and to ask questions if they do not understand what they are told or what they should do.
[2023-12-13] MEDS: DORNASE ALFA INH SOLN 1 MG/ML 2.5 ML AMP 2.5 MG INHALATION (15:09)
[2023-12-13] MEDS: LACTATED RINGERS 1,000 ML 125 ML IV CONT (15:09)
[2023-12-13] MEDS: MUPIROCIN 2% OINT 22 GM TUBE 1 APPLIC EACH NARE ×2 (15:09→20:47)
[2023-12-13] MEDS: IPRATROPIUM 0.5 MG/ALBUTEROL SULFATE 2.5 MG AMPUL.NEB 3 ML INHALATION ×2 (15:09→20:52)
[2023-12-13 16:39] LABS: Valproic Acid 39.7 ug/mL (50-120)
[2023-12-13] MEDS: THIAMINE HCL 100 MG TABLET FEED TUBE (16:49)
[2023-12-13] MEDS: FOLIC ACID 1 MG TABLET FEED TUBE (16:49)
[2023-12-13] MEDS: ASPIRIN 81 MG CHEWABLE TABLET FEED TUBE (16:49)
[2023-12-13] MEDS: VALPROIC ACID LIQ 250 MG/5 ML ORAL SOLUTION UDC 500 MG FEED TUBE ×2 (16:50→20:45)
[2023-12-13] MEDS: guaiFENesin 200 MG/10 ML UDC 600 MG FEED TUBE ×2 (16:50→23:32)
[2023-12-13] MEDS: levETIRAcetam ORAL SOL 500 MG/5 ML UDC 2000 MG FEED TUBE (20:40)
[2023-12-13] MEDS: METOPROLOL TARTRATE 25 MG TABLET FEED TUBE (20:40)
[2023-12-13] MEDS: polyethylene glycoL 3350 17 GM POWD.PACK FEED TUBE (20:40)
[2023-12-13] MEDS: CLOBAZAM 5 MG FEED TUBE (20:41)
[2023-12-13] MEDS: FAMOTIDINE 20 MG TABLET FEED TUBE (20:41)
[2023-12-13] MEDS: ATORVASTATIN 40 MG TABLET FEED TUBE (20:41)
[2023-12-13] MEDS: LACOSAMIDE (*CRX) 100 MG TABLET 200 MG FEED TUBE (20:41)
[2023-12-13] MEDS: cloBAZam (*CRX) 10 MG TABLET FEED TUBE (20:41)
[2023-12-14] VITALS (22 sets, daily range): BP systolic 114–147; BP diastolic 58–82; PULSE 94–120; RESP 18–22; TEMP 36.4–37; O2SAT 91–100; BMI 22.3
[2023-12-14] MEDS: LACTATED RINGERS 1,000 ML 125 ML IV CONT ×3 (00:07→17:38)
[2023-12-14] MEDS: VANCOMYCIN 1,250 MG/NS 250 ML 1,250 MG/250 ML BAG 166.67 MG IVPB ×2 (02:19→13:43)
[2023-12-14] MEDS: IPRATROPIUM 0.5 MG/ALBUTEROL SULFATE 2.5 MG AMPUL.NEB 3 ML INHALATION ×4 (03:02→20:29)
[2023-12-14 04:27] LABS: Hematocrit 37.7 % (42.0-52.0); Hemoglobin 12.4 g/dL (14.0-18.0); Mean Corpuscular HGB Conc 32.9 g/dl (32-36); Mean Corpuscular Hemoglobin 32.5 pg (26-34); Mean Corpuscular Volume 98.7 fl (80-100); Mean Platelet Volume 12.6 fl (7.4-10.4); Platelet Count Result 237 k/mm3 (150-375); Red Blood Count 3.82 M/mm3 (4.6-6.20); Red Cell Distribution Width 12.9 % (11.5-14.5)
[2023-12-14 04:39] LABS: Alanine Aminotransferase 62 U/L (6-50); Albumin Level 3.3 g/dL (3.5-5.1); Alkaline Phosphatase 92 U/L (38-126); Anion Gap 10 mmol/L (4-12); Aspartate Amino Transferase 49 U/L (17-59); Bilirubin,Total 0.5 mg/dL (0.2-1.3); Blood Urea Nitrogen 10 mg/dL (9-20); Calcium 9.2 mg/dL (8.4-10.2); Carbon Dioxide 23 mmol/L (22-30); Chloride 106 mmol/L (98-107); Estimated CRCL calculation 104 ml/min; Estimated Glomerular Filt Rate > 60; Glucose 114 mg/dL (65-110); Magnesium 1.9 mg/dL (1.6-2.3); Potassium 3.9 mmol/L (3.4-5.0); Sodium 139 mmol/L (137-145)
[2023-12-14] MEDS: PIPERACILLN/TAZ 3.375GM/NS50ML 3.375 GM/50 ML BAG IVPB ×4 (06:09→23:17)
[2023-12-14] MEDS: guaiFENesin 200 MG/10 ML UDC 600 MG FEED TUBE ×3 (06:10→17:37)
[2023-12-14] MEDS: DORNASE ALFA INH SOLN 1 MG/ML 2.5 ML AMP 2.5 MG INHALATION (07:24)
[2023-12-14] MEDS: ENOXAPARIN 40 MG/0.4 ML SYRINGE SUB-Q (09:32)
[2023-12-14] MEDS: FAMOTIDINE 20 MG TABLET FEED TUBE ×2 (09:32→20:01)
[2023-12-14] MEDS: THIAMINE HCL 100 MG TABLET FEED TUBE (09:32)
[2023-12-14] MEDS: FOLIC ACID 1 MG TABLET FEED TUBE (09:32)
[2023-12-14] MEDS: METOPROLOL TARTRATE 25 MG TABLET FEED TUBE ×2 (09:32→20:00)
[2023-12-14] MEDS: AZITHROMYCIN 500 MG/NS 250 ML 500 MG/250 ML BAG 250 MG IVPB (09:32)
[2023-12-14] MEDS: LACOSAMIDE (*CRX) 100 MG TABLET 200 MG FEED TUBE ×2 (09:32→20:01)
[2023-12-14] MEDS: ASPIRIN 81 MG CHEWABLE TABLET FEED TUBE (09:32)
[2023-12-14] MEDS: polyethylene glycoL 3350 17 GM POWD.PACK FEED TUBE (09:33)
[2023-12-14] MEDS: VALPROIC ACID LIQ 250 MG/5 ML ORAL SOLUTION UDC 500 MG FEED TUBE ×4 (09:33→20:01)
[2023-12-14] MEDS: EUCERIN CREAM 120 GM JAR 1 APPLIC TOPICAL (09:33)
[2023-12-14] MEDS: MUPIROCIN 2% OINT 22 GM TUBE 1 APPLIC EACH NARE (09:33)
[2023-12-14] MEDS: levETIRAcetam ORAL SOL 500 MG/5 ML UDC 2000 MG FEED TUBE ×2 (09:51→20:02)
--- NOTE | 2023-12-14 18:07 | PM.IMPN ---
Progress Note: A&P Assessment and Plan (1) MRSA colonization: Code(s): Z22.322 - Carrier or suspected carrier of Methicillin resistant Staphylococcus aureus Status: Acute (2) Tracheostomy in place: Code(s): Z93.0 - Tracheostomy status Status: Acute (3) Pneumonia: Code(s): J18.9 - Pneumonia, unspecified organism Status: Acute Plan Full code. Continue Zosyn. Continue Zithromax. Continue vancomycin. Awaiting cultures Subjective Date/time seen: 12/14/23 18:07 Interval history: Patient able to shake his head no or nod yes. He denies shortness of breath. He feels like he is doing better. He does not answer when asked if he has a lot of secretions in the [facility] as well. Review of Systems Review of Systems: All systems reviewed & are unremarkable except as noted in HPI and below (Subjective) Exam Const: General: comfortable and no acute distress Eyes: Pupils: Equal, round and reactive pupils present Neck: Neck: supple Resp: Other: Junky upper airway sound Cardio: Rate: regular rate Rhythm: regular rhythm Extrem: General: no edema Objective Data Vital Signs Vital Signs: Vital Signs - 24 hr 12/13/23 20:40 12/13/23 20:00 12/13/23 20:52 Temperature 97.6 F Pulse Rate 106 H 94 Respiratory Rate 19 Blood Pressure 138/77 Pulse Oximetry 95 100 Oxygen Delivery High Flow Therapy with Tr Oxygen Flow Rate 30 Fraction of Inspired Oxygen 12/13/23 20:52 12/13/23 21:08 12/13/23 20:00 Temperature Pulse Rate 108 H 106 H 99 Respiratory Rate 20 20 Blood Pressure Pulse Oximetry Oxygen Delivery Oxygen Flow Rate Fraction of Inspired Oxygen 12/13/23 20:00 12/13/23 22:00 12/13/23 23:44 Temperature 97.6 F Pulse Rate 106 H 107 H Respiratory Rate 18 Blood Pressure 148/78 H Pulse Oximetry 95 94 Oxygen Delivery High Flow Therapy with Tr Oxygen Flow Rate 30 Fraction of Inspired Oxygen 12/14/23 00:00 12/14/23 00:00 12/14/23 02:00 Temperature Pulse Rate 108 H 107 H Respiratory Rate Blood Pressure Pulse Oximetry 94 Oxygen Delivery High Flow Therapy with Tr Oxygen Flow Rate 30 Fraction of Inspired Oxygen 12/14/23 03:02 12/14/23 03:02 12/14/23 03:16 Temperature Pulse Rate 100 100 102 H Respiratory Rate 20 20 Blood Pressure Pulse Oximetry 100 Oxygen Delivery High Flow Therapy with Tr Oxygen Flow Rate 30 Fraction of Inspired Oxygen 21 12/14/23 04:35 12/14/23 04:00 12/14/23 04:00 Temperature 97.6 F Pulse Rate 109 H 120 H Respiratory Rate 18 Blood Pressure 147/82 H Pulse Oximetry 100 97 Oxygen Delivery High Flow Therapy with Tr Oxygen Flow Rate 30 Fraction of Inspired Oxygen 21 12/14/23 06:00 12/14/23 07:23 12/14/23 07:23 Temperature Pulse Rate 109 H 107 H 107 H Respiratory Rate 18 18 Blood Pressure Pulse Oximetry 98 Oxygen Delivery High Flow Therapy with Tr Oxygen Flow Rate 30 Fraction of Inspired Oxygen 21 12/14/23 08:00 12/14/23 08:00 12/14/23 09:32 Temperature 97.6 F Pulse Rate 109 H 108 H 108 H Respiratory Rate 18 18 Blood Pressure 130/71 Pulse Oximetry 96 Oxygen Delivery Oxygen Flow Rate Fraction of Inspired Oxygen 12/14/23 08:00 12/14/23 08:00 12/14/23 10:00 Temperature Pulse Rate 108 H 113 H Respiratory Rate Blood Pressure Pulse Oximetry 98 Oxygen Delivery High Flow Therapy with Tr Oxygen Flow Rate 30 Fraction of Inspired Oxygen 21 12/14/23 12:00 12/14/23 13:19 12/14/23 13:29 Temperature 97.5 F L Pulse Rate 107 H 104 H 106 H Respiratory Rate 22 H 20 18 Blood Pressure 114/66 Pulse Oximetry 93 Oxygen Delivery Oxygen Flow Rate Fraction of Inspired Oxygen 12/14/23 13:20 12/14/23 12:00 12/14/23 16:00 Temperature 98.6 F Pulse Rate 104 H 110 H Respiratory Rate 20 22 H Blood Pressure 116/66 Pulse Oximetry 99 95 91 Oxygen Delivery High Flow Therapy with Tr High Flow Therapy with Tr Oxygen Flow Rate 30 30 Fraction of Inspired Oxygen 21 21 Intake/Output Intake/Output: Intake & Output 12/11/23 12/12/23 12/13/23 12/14/23 23:59 23:59 23:59 23:59 Intake Total 3350 2887.5 Output Total 1300 950 Balance 2050 1937.5 Meds/Results Medications: Active Medications Generic Name Dose Route Start Last Admin Trade Name Freq PRN Reason Stop Dose Admin Albuterol/Ipratropium 3 ml 12/13/23 14:00 12/14/23 13:19 Ipratropium 0.5 Mg/Albuterol Sulfate 2.5 Mg Ampul.Neb 3 Ml INHALATION 3 ml Q6HRT TERRELL Administration Artificial Tears 1 drop 12/13/23 15:08 Artificial Tears Ophth Soln 15 Ml Bottle EACH EYE Q4-6H PRN Dry Eyes Aspirin 81 mg 12/13/23 15:15 12/14/23 09:32 Aspirin 81 Mg Chewable Tablet FEED TUBE 81 mg DAILY TERRELL Administration Atorvastatin Calcium 40 mg 12/13/23 21:00 12/13/23 20:41 Atorvastatin 40 Mg Tablet FEED TUBE 40 mg QHS TERRELL Administration Bisacodyl 10 mg 12/13/23 15:08 Bisacodyl 10 Mg Suppository RECTAL DAILY PRN Constipation Calcium Carbonate 400 mg 12/13/23 15:20 Calcium Carbonate (Tums) 500 Mg (200 Mg Elemental) FEED TUBE Q6H PRN Heartburn Clobazam 5 mg 12/13/23 21:00 12/13/23 20:41 Clobazam (*Crx) 5 Mg Tablet FEED TUBE 5 mg HS TERRELL Administration Clobazam 10 mg 12/13/23 21:00 12/13/23 20:41 Clobazam (*Crx) 10 Mg Tablet FEED TUBE 10 mg HS TERRELL Administration Enoxaparin Sodium 40 mg 12/14/23 09:00 12/14/23 09:32 Enoxaparin 40 Mg/0.4 Ml Syringe SUB-Q 40 mg DAILY TERERLL Administration Famotidine 20 mg 12/13/23 21:00 12/14/23 09:32 Famotidine 20 Mg Tablet FEED TUBE 20 mg Q12H TERRELL Administration Folic Acid 1 mg 12/13/23 15:15 12/14/23 09:32 Folic Acid 1 Mg Tablet FEED TUBE 1 mg DAILY TERRELL Administration Guaifenesin 600 mg 12/13/23 18:00 12/14/23 17:37 Guaifenesin 200 Mg/10 Ml Udc FEED TUBE 600 mg Q6HR TERRELL Administration Piperacillin/Tazobactam/Dextrose 3.375 gm in 50 mls @ 100 mls/hr 12/13/23 18:00 12/14/23 17:27 Zosyn 3.375 Gm/Ns 50 Ml IVPB 100 mls/hr Q6H TERRELL Administration Azithromycin 500 mg in 250 mls @ 250 mls/hr 12/14/23 09:00 12/14/23 10:32 Zithromax IVPB Infused Q24H TRERELL Infusion Lactated Ringer's 1,000 mls @ 125 mls/hr 12/13/23 12:35 12/14/23 17:38 Lr - Lactated Ringers Iv IV CONT 125 mls/hr .Q8H TERRELL Administration Vancomycin HCl 1,250 mg in 250 mls @ 166.667 mls/hr 12/14/23 01:00 12/14/23 15:13 Vancomycin 1,250 Mg/Ns 250 Ml IVPB Infused Q12H TERRELL Infusion Lacosamide 200 mg 12/13/23 21:00 12/14/23 09:32 Lacosamide (*Crx) 100 Mg Tablet FEED TUBE 200 mg Q12H TERRELL Administration Levetiracetam 2,000 mg 12/13/23 21:00 12/14/23 09:51 Levetiracetam Oral Amparo 500 Mg/5 Ml Udc FEED TUBE 2,000 mg Q12H TERRELL Administration Metoprolol Tartrate 25 mg 12/13/23 21:00 12/14/23 09:32 Metoprolol Tartrate 25 Mg Tablet FEED TUBE 25 mg Q12H TERRELL Administration Multi-Ingred Cream/Lotion/Oil/Oint 1 applic 12/14/23 09:00 12/14/23 09:33 Eucerin Cream 120 Gm Jar TOPICAL 1 applic DAILY TERRELL Administration Mupirocin 1 applic 12/13/23 14:00 12/14/23 09:33 Mupirocin 2% Oint 22 Gm Tube EACH NARE 1 applic Q12HR TERRELL Administration Polyethylene Glycol 17 gm 12/13/23 21:00 12/14/23 09:33 Polyethylene Glycol 3350 17 Gm Powd.Pack FEED TUBE 17 gm Q12H TERRELL Administration Thiamine HCl 100 mg 12/13/23 15:20 12/14/23 09:32 Thiamine Hcl 100 Mg Tablet FEED TUBE 100 mg DAILY TERRELL Administration Valproate Sodium 500 mg 12/13/23 17:00 12/14/23 17:38 Valproic Acid Liq 250 Mg/5 Ml Oral Solution Udc FEED TUBE 500 mg QID TERRELL Administration Radiology Results: ITS Impressions Chest X-Ray 12/13/23 08:45 IMPRESSION: No acute cardiopulmonary pathology. Chest CT 12/13/23 10:03 IMPRESSION: 1. Pneumonia in the right lower lobe posteriorly. Minimal effusion cannot be excluded. 2. Status post placement of tracheostomy tube. 3. Tube seen in the stomach. 4. Left kidney stones. Labs Labs: Laboratory Results - last 24 hr 12/14/23 04:04 WBC 9.0 RBC 3.82 L Hgb 12.4 L Hct 37.7 L MCV 98.7 MCH 32.5 MCHC 32.9 RDW 12.9 Plt Count 237 MPV 12.6 H Sodium 139 Potassium 3.9 Chloride 106 Carbon Dioxide 23 Anion Gap 10 BUN 10 Creatinine 0.60 L Estim Creat Clear Calc 104 Estimated GFR > 60 Glucose 114 H Calcium 9.2 Magnesium 1.9 Total Bilirubin 0.5 AST 49 ALT 62 H Alkaline Phosphatase 92 Total Protein 7.0 Albumin 3.3 L
[2023-12-14] MEDS: CLOBAZAM 5 MG FEED TUBE (20:00)
[2023-12-14] MEDS: cloBAZam (*CRX) 10 MG TABLET FEED TUBE (20:00)
[2023-12-14] MEDS: ATORVASTATIN 40 MG TABLET FEED TUBE (20:01)
[2023-12-14] MEDS: DORNASE ALFA INH SOLN 1 MG/ML 2.5 ML AMP 2.5 MG (20:29)
[2023-12-15] VITALS (21 sets, daily range): BP systolic 131–145; BP diastolic 59–68; PULSE 94–113; RESP 18–26; TEMP 36.6–37.1; O2SAT 94–100
[2023-12-15 01:29] LABS: Vancomycin Trough 27.3 ug/mL (10.0-20.0)
[2023-12-15] MEDS: IPRATROPIUM 0.5 MG/ALBUTEROL SULFATE 2.5 MG AMPUL.NEB 3 ML INHALATION ×4 (02:01→20:20)
[2023-12-15] MEDS: LACTATED RINGERS 1,000 ML 125 ML IV CONT ×3 (03:13→21:02)
[2023-12-15] MEDS: MUPIROCIN 2% OINT 22 GM TUBE 1 APPLIC EACH NARE ×3 (03:14→21:36)
[2023-12-15] MEDS: guaiFENesin 200 MG/10 ML UDC 600 MG FEED TUBE ×4 (03:38→17:03)
[2023-12-15 04:59] LABS: Basophils Percent Auto 0.5 % (0.2-1.2); Eosinophils Absolute Auto 0.3 K/mm3 (0-0.3); Eosinophils Percent Auto 3.5 % (0-4.4); Hematocrit 33.1 % (42.0-52.0); Hemoglobin 10.5 g/dL (14.0-18.0); Immature Granulocyte Absolute 0.03 K/mm3 (0.00-0.031); Immature Granulocyte Percent A 0.4 % (0-0.5); Immature Platelet Fraction Pct 20.1 % (0.9-11.2); Lymphocytes Absolute Auto 1.88 K/mm3 (0.9-3.2); Lymphocytes Percent Auto 22.5 % (18.3-44.2); Mean Corpuscular HGB Conc 31.7 g/dl (32-36); Mean Corpuscular Hemoglobin 31.9 pg (26-34); Mean Corpuscular Volume 100.6 fl (80-100); Mean Platelet Volume 13.6 fl (7.4-10.4); Monocytes Absolute Auto 1.3 K/mm3 (0.1-0.6); Neutrophils Absolute Auto 4.8 K/mm3 (1.3-6.7); Neutrophils Percent Auto 57.1 % (45.5-73.1); Platelet Count Result 130 k/mm3 (150-375); Red Blood Count 3.29 M/mm3 (4.6-6.20); White Blood Count 8.4 K/mm3 (4.5-10.0)
[2023-12-15 05:38] LABS: Platelet Estimate Decreased (Adequate)
[2023-12-15 05:39] LABS: Burr Cells 1+; Large Platelets Present; Schistocytes None Seen
[2023-12-15 05:41] LABS: Alanine Aminotransferase 51 U/L (6-50); Albumin Level 2.8 g/dL (3.5-5.1); Alkaline Phosphatase 84 U/L (38-126); Anion Gap 9 mmol/L (4-12); Aspartate Amino Transferase 53 U/L (17-59); Bilirubin,Total 0.5 mg/dL (0.2-1.3); Blood Urea Nitrogen 20 mg/dL (9-20); Calcium 8.6 mg/dL (8.4-10.2); Carbon Dioxide 21 mmol/L (22-30); Chloride 107 mmol/L (98-107); Estimated CRCL calculation 39 ml/min; Estimated Glomerular Filt Rate 44; Glucose 121 mg/dL (65-110); Magnesium 2.3 mg/dL (1.6-2.3); Potassium 3.9 mmol/L (3.4-5.0); Sodium 137 mmol/L (137-145)
[2023-12-15 05:54] LABS: Procalcitonin 0.2 ng/mL
[2023-12-15] MEDS: PIPERACILLN/TAZ 3.375GM/NS50ML 3.375 GM/50 ML BAG IVPB ×3 (06:16→17:03)
[2023-12-15] MEDS: FAMOTIDINE 20 MG TABLET FEED TUBE ×2 (09:28→21:35)
[2023-12-15] MEDS: FOLIC ACID 1 MG TABLET FEED TUBE (09:28)
[2023-12-15] MEDS: levETIRAcetam ORAL SOL 500 MG/5 ML UDC 2000 MG FEED TUBE ×2 (09:28→21:35)
[2023-12-15] MEDS: VALPROIC ACID LIQ 250 MG/5 ML ORAL SOLUTION UDC 500 MG FEED TUBE ×4 (09:28→21:35)
[2023-12-15] MEDS: LACOSAMIDE (*CRX) 100 MG TABLET 200 MG FEED TUBE ×2 (09:28→21:35)
[2023-12-15] MEDS: THIAMINE HCL 100 MG TABLET FEED TUBE (09:28)
[2023-12-15] MEDS: METOPROLOL TARTRATE 25 MG TABLET FEED TUBE ×2 (09:28→21:35)
[2023-12-15] MEDS: ASPIRIN 81 MG CHEWABLE TABLET FEED TUBE (09:28)
[2023-12-15] MEDS: AZITHROMYCIN 500 MG/NS 250 ML 500 MG/250 ML BAG 250 MG IVPB (09:29)
[2023-12-15] MEDS: polyethylene glycoL 3350 17 GM POWD.PACK FEED TUBE (09:29)
[2023-12-15] MEDS: ENOXAPARIN 40 MG/0.4 ML SYRINGE SUB-Q (09:29)
--- NOTE | 2023-12-15 15:32 | P.PNIM_ITS ---
Progress Note: A&P Assessment and Plan (1) MRSA colonization: Code(s): Z22.322 - Carrier or suspected carrier of Methicillin resistant Staphylococcus aureus Status: Acute (2) Tracheostomy in place: Code(s): Z93.0 - Tracheostomy status Status: Acute (3) Pneumonia: Code(s): J18.9 - Pneumonia, unspecified organism Status: Acute Plan Full code. Continue Zosyn. Continue Zithromax. Discontinue vancomycin. Pseudomonas growing in the sputum culture. Await sensitivities. He previously had Pseudomonas resistant to some antibiotics. Full code. Stable. Chronically ill. Transfer medical floor. Subjective Date/time seen: 12/15/23 15:32 Interval history: pt indicates he is doing better Review of Systems Review of Systems: All systems reviewed & are unremarkable except as noted in HPI and below (Subjective) Exam Const: General: comfortable and no acute distress Eyes: Pupils: Equal, round and reactive pupils present Neck: Neck: supple Resp: Other: Junky upper airway sound, improved. Cardio: Rate: regular rate Rhythm: regular rhythm Extrem: General: no edema Objective Data Vital Signs Vital Signs: Vital Signs - 24 hr 12/14/23 16:00 12/14/23 16:00 12/14/23 18:00 Temperature 98.6 F Pulse Rate 110 H 114 H 97 Respiratory Rate 22 H Blood Pressure 116/66 Pulse Oximetry 91 Oxygen Delivery Oxygen Flow Rate Fraction of Inspired Oxygen 12/14/23 16:00 12/14/23 19:58 12/14/23 20:00 Temperature 97.8 F Pulse Rate 95 94 Respiratory Rate 19 Blood Pressure 114/58 L Pulse Oximetry 98 98 Oxygen Delivery High Flow Therapy with Tr Oxygen Flow Rate 30 Fraction of Inspired Oxygen 21 12/14/23 20:00 12/14/23 20:30 12/14/23 21:01 Temperature Pulse Rate 95 104 H 104 H Respiratory Rate 20 20 Blood Pressure Pulse Oximetry 99 Oxygen Delivery High Flow Therapy with Tr Oxygen Flow Rate 30 Fraction of Inspired Oxygen 12/14/23 22:00 12/15/23 00:00 12/15/23 00:00 Temperature 98.0 F Pulse Rate 99 101 H 100 Respiratory Rate 19 Blood Pressure 140/65 Pulse Oximetry 99 Oxygen Delivery Oxygen Flow Rate Fraction of Inspired Oxygen 12/15/23 02:01 12/15/23 02:01 12/15/23 02:13 Temperature Pulse Rate 102 H 102 H 104 H Respiratory Rate 18 20 20 Blood Pressure Pulse Oximetry 95 Oxygen Delivery High Flow Therapy with Tr Oxygen Flow Rate 30 Fraction of Inspired Oxygen 21 12/15/23 02:00 12/15/23 04:00 12/15/23 04:00 Temperature 98.0 F Pulse Rate 105 H 100 99 Respiratory Rate 19 Blood Pressure 131/59 L Pulse Oximetry 100 Oxygen Delivery Oxygen Flow Rate Fraction of Inspired Oxygen 12/15/23 06:00 12/15/23 07:16 12/15/23 07:16 Temperature Pulse Rate 102 H 105 H 105 H Respiratory Rate 24 H 24 H Blood Pressure Pulse Oximetry 98 Oxygen Delivery High Flow Therapy with Tr Oxygen Flow Rate 30 Fraction of Inspired Oxygen 12/15/23 07:37 12/15/23 08:00 12/15/23 09:28 Temperature 97.8 F Pulse Rate 94 113 H 109 H Respiratory Rate 20 24 H Blood Pressure 145/64 H Pulse Oximetry 94 Oxygen Delivery Oxygen Flow Rate Fraction of Inspired Oxygen 12/15/23 08:00 12/15/23 08:00 12/15/23 10:00 Temperature Pulse Rate 112 H 112 H 105 H Respiratory Rate Blood Pressure Pulse Oximetry 100 Oxygen Delivery High Flow Therapy with Tr Oxygen Flow Rate 30 Fraction of Inspired Oxygen 21 12/15/23 12:00 12/15/23 13:21 12/15/23 13:21 Temperature 98.0 F Pulse Rate 97 96 96 Respiratory Rate 20 24 H 24 H Blood Pressure 137/59 L Pulse Oximetry 96 99 Oxygen Delivery High Flow Therapy with Tr Oxygen Flow Rate 30 Fraction of Inspired Oxygen 12/15/23 13:30 12/15/23 12:00 12/15/23 12:00 Temperature Pulse Rate 99 103 H Respiratory Rate 24 H Blood Pressure Pulse Oximetry 94 Oxygen Delivery High Flow Therapy with Tr Oxygen Flow Rate 30 Fraction of Inspired Oxygen 21 12/15/23 14:00 Temperature Pulse Rate 110 H Respiratory Rate Blood Pressure Pulse Oximetry Oxygen Delivery Oxygen Flow Rate Fraction of Inspired Oxygen Intake/Output Intake/Output: Intake & Output 12/12/23 12/13/23 12/14/23 12/15/23 23:59 23:59 23:59 23:59 Intake Total 3350 2937.5 3725 Output Total 1300 1300 600 Balance 2050 1637.5 3125 Meds/Results Medications: Active Medications Generic Name Dose Route Start Last Admin Trade Name Freq PRN Reason Stop Dose Admin Albuterol/Ipratropium 3 ml 12/13/23 14:00 12/15/23 13:18 Ipratropium 0.5 Mg/Albuterol Sulfate 2.5 Mg Ampul.Neb 3 Ml INHALATION 3 ml Q6HRT TERRELL Administration Artificial Tears 1 drop 12/13/23 15:08 Artificial Tears Ophth Soln 15 Ml Bottle EACH EYE Q4-6H PRN Dry Eyes Aspirin 81 mg 12/13/23 15:15 12/15/23 09:28 Aspirin 81 Mg Chewable Tablet FEED TUBE 81 mg DAILY TERRELL Administration Atorvastatin Calcium 40 mg 12/13/23 21:00 12/14/23 20:01 Atorvastatin 40 Mg Tablet FEED TUBE 40 mg QHS TERRELL Administration Bisacodyl 10 mg 12/13/23 15:08 Bisacodyl 10 Mg Suppository RECTAL DAILY PRN Constipation Calcium Carbonate 400 mg 12/13/23 15:20 Calcium Carbonate (Tums) 500 Mg (200 Mg Elemental) FEED TUBE Q6H PRN Heartburn Clobazam 5 mg 12/13/23 21:00 12/14/23 20:00 Clobazam (*Crx) 5 Mg Tablet FEED TUBE 5 mg HS TERRELL Administration Clobazam 10 mg 12/13/23 21:00 12/14/23 20:00 Clobazam (*Crx) 10 Mg Tablet FEED TUBE 10 mg HS TERRELL Administration Enoxaparin Sodium 40 mg 12/14/23 09:00 12/15/23 09:29 Enoxaparin 40 Mg/0.4 Ml Syringe SUB-Q 40 mg DAILY TERRELL Administration Famotidine 20 mg 12/13/23 21:00 12/15/23 09:28 Famotidine 20 Mg Tablet FEED TUBE 20 mg Q12H TERRELL Administration Folic Acid 1 mg 12/13/23 15:15 12/15/23 09:28 Folic Acid 1 Mg Tablet FEED TUBE 1 mg DAILY TERRELL Administration Guaifenesin 600 mg 12/13/23 18:00 12/15/23 11:51 Guaifenesin 200 Mg/10 Ml Udc FEED TUBE 600 mg Q6HR TERRELL Administration Piperacillin/Tazobactam/Dextrose 3.375 gm in 50 mls @ 100 mls/hr 12/13/23 18:00 12/15/23 11:51 Zosyn 3.375 Gm/Ns 50 Ml IVPB 100 mls/hr Q6H TERRELL Administration Azithromycin 500 mg in 250 mls @ 250 mls/hr 12/14/23 09:00 12/15/23 09:29 Zithromax IVPB 250 mls/hr Q24H TERRELL Administration Lactated Ringer's 1,000 mls @ 125 mls/hr 12/13/23 12:35 12/15/23 11:57 Lr - Lactated Ringers Iv IV CONT 125 mls/hr .Q8H TERRELL Administration Lacosamide 200 mg 12/13/23 21:00 12/15/23 09:28 Lacosamide (*Crx) 100 Mg Tablet FEED TUBE 200 mg Q12H TERRELL Administration Levetiracetam 2,000 mg 12/13/23 21:00 12/15/23 09:28 Levetiracetam Oral Amparo 500 Mg/5 Ml Udc FEED TUBE 2,000 mg Q12H TERRELL Administration Metoprolol Tartrate 25 mg 12/13/23 21:00 12/15/23 09:28 Metoprolol Tartrate 25 Mg Tablet FEED TUBE 25 mg Q12H TERRELL Administration Multi-Ingred Cream/Lotion/Oil/Oint 1 applic 12/14/23 09:00 12/15/23 09:20 Eucerin Cream 120 Gm Jar TOPICAL Not Given DAILY TERRELL Mupirocin 1 applic 12/13/23 14:00 12/15/23 09:57 Mupirocin 2% Oint 22 Gm Tube EACH NARE 1 applic Q12HR TERRELL Administration Polyethylene Glycol 17 gm 12/13/23 21:00 12/15/23 09:29 Polyethylene Glycol 3350 17 Gm Powd.Pack FEED TUBE 17 gm Q12H TERRELL Administration Thiamine HCl 100 mg 12/13/23 15:20 12/15/23 09:28 Thiamine Hcl 100 Mg Tablet FEED TUBE 100 mg DAILY TERRELL Administration Valproate Sodium 500 mg 12/13/23 17:00 12/15/23 11:51 Valproic Acid Liq 250 Mg/5 Ml Oral Solution Udc FEED TUBE 500 mg QID TERRELL Administration Radiology Results: ITS Impressions Chest X-Ray 12/13/23 08:45 IMPRESSION: No acute cardiopulmonary pathology. Chest CT 12/13/23 10:03 IMPRESSION: 1. Pneumonia in the right lower lobe posteriorly. Minimal effusion cannot be excluded. 2. Status post placement of tracheostomy tube. 3. Tube seen in the stomach. 4. Left kidney stones. Labs Labs: Laboratory Results - last 24 hr 12/15/23 12/15/23 00:51 04:04 WBC 8.4 RBC 3.29 L Hgb 10.5 L Hct 33.1 L MCV 100.6 H MCH 31.9 MCHC 31.7 L RDW 13.0 Plt Count 130 L MPV 13.6 H Immature Gran % (Auto) 0.4 Neut % (Auto) 57.1 Lymph % (Auto) 22.5 [place] % (Auto) 16.0 H Eos % (Auto) 3.5 Baso % (Auto) 0.5 Lymph # (Auto) 1.88 [place] # (Auto) 1.3 H Eos # (Auto) 0.3 Baso # (Auto) 0.0 Abs Immat Gran (auto) 0.03 Absolute Neuts (auto) 4.8 Absolute Nucleated RBC 0.000 Nucleated RBC % 0.0 Platelet Estimate Decreased Large Platelets Present % Immature Plt Fraction 20.1 H [place] Cells 1+ Schistocytes None seen Sodium 137 Potassium 3.9 Chloride 107 Carbon Dioxide 21 L Anion Gap 9 BUN 20 D Creatinine 1.90 H Estim Creat Clear Calc 39 Estimated GFR 44 L Glucose 121 H Calcium 8.6 Magnesium 2.3 Total Bilirubin 0.5 AST 53 ALT 51 H Alkaline Phosphatase 84 Total Protein 6.0 L Albumin 2.8 L Procalcitonin 0.2 Vancomycin Trough 27.3 H
[2023-12-15] MEDS: CLOBAZAM 5 MG FEED TUBE (21:35)
[2023-12-15] MEDS: cloBAZam (*CRX) 10 MG TABLET FEED TUBE (21:35)
[2023-12-15] MEDS: ATORVASTATIN 40 MG TABLET FEED TUBE (21:35)
[2023-12-16] VITALS (14 sets, daily range): BP systolic 138–166; BP diastolic 60–87; PULSE 91–105; RESP 16–24; TEMP 35.9–36.7; O2SAT 93–98
[2023-12-16] MEDS: PIPERACILLN/TAZ 3.375GM/NS50ML 3.375 GM/50 ML BAG IVPB ×5 (00:29→23:43)
[2023-12-16] MEDS: guaiFENesin 200 MG/10 ML UDC 600 MG FEED TUBE ×5 (00:29→23:43)
[2023-12-16] MEDS: IPRATROPIUM 0.5 MG/ALBUTEROL SULFATE 2.5 MG AMPUL.NEB 3 ML INHALATION ×4 (02:10→20:43)
[2023-12-16 05:07] LABS: Basophils Percent Auto 0.4 % (0.2-1.2); Eosinophils Absolute Auto 0.4 K/mm3 (0-0.3); Eosinophils Percent Auto 4.6 % (0-4.4); Hematocrit 31.6 % (42.0-52.0); Hemoglobin 10.2 g/dL (14.0-18.0); Immature Granulocyte Absolute 0.02 K/mm3 (0.00-0.031); Immature Granulocyte Percent A 0.2 % (0-0.5); Lymphocytes Absolute Auto 1.83 K/mm3 (0.9-3.2); Lymphocytes Percent Auto 22.7 % (18.3-44.2); Mean Corpuscular HGB Conc 32.3 g/dl (32-36); Mean Corpuscular Hemoglobin 31.9 pg (26-34); Mean Corpuscular Volume 98.8 fl (80-100); Mean Platelet Volume 11.6 fl (7.4-10.4); Monocytes Absolute Auto 1.3 K/mm3 (0.1-0.6); Monocytes Percent Auto 15.6 % (2.6-8.5); Neutrophils Absolute Auto 4.6 K/mm3 (1.3-6.7); Neutrophils Percent Auto 56.5 % (45.5-73.1); Platelet Count Result 202 k/mm3 (150-375); Red Cell Distribution Width 13.2 % (11.5-14.5); White Blood Count 8.1 K/mm3 (4.5-10.0)
[2023-12-16 05:15] LABS: Anion Gap 8 mmol/L (4-12); Blood Urea Nitrogen 17 mg/dL (9-20); Calcium 8.8 mg/dL (8.4-10.2); Carbon Dioxide 25 mmol/L (22-30); Chloride 111 mmol/L (98-107); Estimated CRCL calculation 34 ml/min; Estimated Glomerular Filt Rate 37; Glucose 99 mg/dL (65-110); Magnesium 2.2 mg/dL (1.6-2.3); Potassium 3.8 mmol/L (3.4-5.0); Sodium 144 mmol/L (137-145)
[2023-12-16 05:50] LABS: Procalcitonin 0.1 ng/mL
[2023-12-16] MEDS: LACTATED RINGERS 1,000 ML 125 ML IV CONT (06:19)
[2023-12-16] MEDS: polyethylene glycoL 3350 17 GM POWD.PACK FEED TUBE ×2 (07:43→21:06)
[2023-12-16] MEDS: FAMOTIDINE 20 MG TABLET FEED TUBE ×2 (07:43→21:05)
[2023-12-16] MEDS: FOLIC ACID 1 MG TABLET FEED TUBE (07:43)
[2023-12-16] MEDS: ASPIRIN 81 MG CHEWABLE TABLET FEED TUBE (07:43)
[2023-12-16] MEDS: levETIRAcetam ORAL SOL 500 MG/5 ML UDC 2000 MG FEED TUBE ×2 (07:43→21:03)
[2023-12-16] MEDS: METOPROLOL TARTRATE 25 MG TABLET FEED TUBE ×2 (07:44→21:05)
[2023-12-16] MEDS: THIAMINE HCL 100 MG TABLET FEED TUBE (07:44)
[2023-12-16] MEDS: AZITHROMYCIN 500 MG/NS 250 ML 500 MG/250 ML BAG 250 MG IVPB (07:44)
[2023-12-16] MEDS: LACOSAMIDE (*CRX) 100 MG TABLET 200 MG FEED TUBE ×2 (07:44→21:06)
[2023-12-16] MEDS: ENOXAPARIN 40 MG/0.4 ML SYRINGE SUB-Q (07:45)
[2023-12-16] MEDS: EUCERIN CREAM 120 GM JAR 1 APPLIC TOPICAL (07:45)
[2023-12-16] MEDS: MUPIROCIN 2% OINT 22 GM TUBE 1 APPLIC EACH NARE ×2 (07:46→21:40)
[2023-12-16] MEDS: VALPROIC ACID LIQ 250 MG/5 ML ORAL SOLUTION UDC 500 MG FEED TUBE ×4 (08:59→21:02)
--- NOTE | 2023-12-16 10:05 | PCNFU ---
Nutrition Follow-Up Complete: Inability to meet nutrition needs PO related to chronic medical condition as evidenced by need for full enteral nutrition Meet estimated protein energy need- Progressing with goal. Continue with same goal Goal: Pt current nutrition is Vital 1.5 @ goal 50 ml/h: 1650 kcal, 70 g protein, 836 ml free water with 250 ml flushes q 6 hours (total water 1836 ml). 22 hour run time Nutrition recommendation: No new recommendations. Continue with same nutrition care plan and orders at this time. Pt has been gaining weight on current regimen; if weight loss occurs, would recommend increasing tube feeding to goal rate of 55 ml/h for 1815 kcal, 77 g protein, 919 ml free water. Last recorded weight is 77.6 kg. Up from 72.7 kg at admission 12/13 Bowel Motility: +2 BMs / Labs Reviewed: Hgb 10.2, Hct 31.6, Cre 2.2 Meds Noted: Famotidine, folic acid, zosyn, miralax, thiamine Skin: No pressure injuries Additional Notes: Tolerating tube feeding well. Continue with same orders. Agree with orders. Monitoring tube feeding tolerance, weights, labs, plan of care Follow up Tuesdays and Fridays
--- NOTE | 2023-12-16 10:55 | PC.NURSE ---
This patient, Bi Tabor, was transferred to [ 328] on 12/16/23 at 1055. Personal belongings sent with patient. Report given to [Trista SIMON ]. Appropriate documentation sent with patient.
--- NOTE | 2023-12-16 11:34 | P.PNIM_ITS ---
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 Vancomycin discontinued, he has MRSA nares positive but believe this is colonization and he does not appear septic. Pseudomonas growing in the sputum culture. Further sensitivities. Chronic anemia stable Patient has a baseline low serum creatinine likely due to his low muscle mass. On 2nd day of admission his serum creatinine dose from 0.6-1.9. His serum creatinine on the 3rd day is 2.2. Multiple etiologies to consider. Neurology consulted and their assistance the greatly appreciated. Nephrology note appreciated. Junky upper airway sounds improved. Continue scheduled nebs, scheduled suctioning, chest physiotherapy. Artificial tears. Full code. Chronically ill. Stable on medical floor. IV fluids discontinued. Continue tube feeds. Lovenox for DVT prophylaxis. Subjective Date/time seen: 12/16/23 11:34 Interval history: no major acute overnight events. The patient indicates he is not have any pain or shortness of breath. Review of Systems Review of Systems: All systems reviewed & are unremarkable except as noted in HPI and below (Subjective) Exam Const: General: comfortable and no acute distress Eyes: Pupils: Equal, round and reactive pupils present Neck: Neck: supple Resp: Other: Junky upper airway sound, improved. Cardio: Rate: regular rate Rhythm: regular rhythm Extrem: General: no edema Objective Data Vital Signs Vital Signs: Vital Signs - 24 hr 12/15/23 12:00 12/15/23 13:21 12/15/23 13:21 Temperature 98.0 F Pulse Rate 97 96 96 Respiratory Rate 20 24 H 24 H Blood Pressure 137/59 L Pulse Oximetry 96 99 Oxygen Delivery High Flow Therapy with Tr Oxygen Flow Rate 30 Fraction of Inspired Oxygen 12/15/23 13:30 12/15/23 12:00 12/15/23 12:00 Temperature Pulse Rate 99 103 H Respiratory Rate 24 H Blood Pressure Pulse Oximetry 94 Oxygen Delivery High Flow Therapy with Tr Oxygen Flow Rate 30 Fraction of Inspired Oxygen 21 12/15/23 14:00 12/15/23 16:00 12/15/23 16:00 Temperature 98.7 F Pulse Rate 110 H 104 H 105 H Respiratory Rate 24 H Blood Pressure 142/63 H Pulse Oximetry 97 Oxygen Delivery Oxygen Flow Rate Fraction of Inspired Oxygen 12/15/23 16:00 12/15/23 18:00 12/15/23 20:00 Temperature 98.1 F Pulse Rate 106 H 105 H Respiratory Rate 19 Blood Pressure 139/68 Pulse Oximetry 95 97 Oxygen Delivery High Flow Therapy with Tr Oxygen Flow Rate 30 Fraction of Inspired Oxygen 21 12/15/23 20:20 12/15/23 20:20 12/15/23 21:35 Temperature Pulse Rate 100 100 113 H Respiratory Rate 26 H Blood Pressure Pulse Oximetry 94 Oxygen Delivery High Flow Therapy with Tr Oxygen Flow Rate 30 Fraction of Inspired Oxygen 21 12/15/23 20:00 12/16/23 00:00 12/16/23 02:10 Temperature 98.0 F Pulse Rate 113 H 105 H 94 Respiratory Rate 22 H 22 H 24 H Blood Pressure 138/60 Pulse Oximetry 94 93 Oxygen Delivery High Flow Therapy with Tr Oxygen Flow Rate 30 Fraction of Inspired Oxygen 21 12/15/23 20:30 12/16/23 02:18 12/16/23 07:27 Temperature 96.6 F L Pulse Rate 98 96 99 Respiratory Rate 26 H 24 H 16 Blood Pressure 149/76 H Pulse Oximetry 98 Oxygen Delivery Oxygen Flow Rate Fraction of Inspired Oxygen 12/16/23 08:05 12/16/23 08:05 12/16/23 08:20 Temperature Pulse Rate 101 H 102 H Respiratory Rate 18 18 Blood Pressure Pulse Oximetry 95 Oxygen Delivery High Flow Therapy with Tr Oxygen Flow Rate 30 Fraction of Inspired Oxygen 21 12/16/23 08:00 Temperature Pulse Rate Respiratory Rate Blood Pressure Pulse Oximetry 95 Oxygen Delivery High Flow Therapy with Tr Oxygen Flow Rate 30 Fraction of Inspired Oxygen 21 Intake/Output Intake/Output: Intake & Output 12/13/23 12/14/23 12/15/23 12/16/23 23:59 23:59 23:59 23:59 Intake Total 3350 2937.5 6681 1350 Output Total 1300 1300 1850 1100 Balance 2050 1637.5 4831 250 Meds/Results Medications: Active Medications Generic Name Dose Route Start Last Admin Trade Name Freq PRN Reason Stop Dose Admin Albuterol/Ipratropium 3 ml 12/13/23 14:00 12/16/23 08:03 Ipratropium 0.5 Mg/Albuterol Sulfate 2.5 Mg Ampul.Neb 3 Ml INHALATION 3 ml Q6HRT TERRELL Administration Artificial Tears 1 drop 12/13/23 15:08 Artificial Tears Ophth Soln 15 Ml Bottle EACH EYE Q4-6H PRN Dry Eyes Aspirin 81 mg 12/13/23 15:15 12/16/23 07:43 Aspirin 81 Mg Chewable Tablet FEED TUBE 81 mg DAILY TERRELL Administration Atorvastatin Calcium 40 mg 12/13/23 21:00 12/15/23 21:35 Atorvastatin 40 Mg Tablet FEED TUBE 40 mg QHS TERRELL Administration Bisacodyl 10 mg 12/13/23 15:08 Bisacodyl 10 Mg Suppository RECTAL DAILY PRN Constipation Calcium Carbonate 400 mg 12/13/23 15:20 Calcium Carbonate (Tums) 500 Mg (200 Mg Elemental) FEED TUBE Q6H PRN Heartburn Clobazam 5 mg 12/13/23 21:00 12/15/23 21:35 Clobazam (*Crx) 5 Mg Tablet FEED TUBE 5 mg HS TERRELL Administration Clobazam 10 mg 12/13/23 21:00 12/15/23 21:35 Clobazam (*Crx) 10 Mg Tablet FEED TUBE 10 mg HS TERRELL Administration Enoxaparin Sodium 40 mg 12/14/23 09:00 12/16/23 07:45 Enoxaparin 40 Mg/0.4 Ml Syringe SUB-Q 40 mg DAILY TERRELL Administration Famotidine 20 mg 12/13/23 21:00 12/16/23 07:43 Famotidine 20 Mg Tablet FEED TUBE 20 mg Q12H TERRELL Administration Folic Acid 1 mg 12/13/23 15:15 12/16/23 07:43 Folic Acid 1 Mg Tablet FEED TUBE 1 mg DAILY TERRELL Administration Guaifenesin 600 mg 12/13/23 18:00 12/16/23 06:19 Guaifenesin 200 Mg/10 Ml Udc FEED TUBE 600 mg Q6HR TERRELL Administration Piperacillin/Tazobactam/Dextrose 3.375 gm in 50 mls @ 100 mls/hr 12/13/23 18:00 12/16/23 07:00 Zosyn 3.375 Gm/Ns 50 Ml IVPB Infused Q6H TERRELL Infusion Azithromycin 500 mg in 250 mls @ 250 mls/hr 12/14/23 09:00 12/16/23 08:49 Zithromax IVPB Infused Q24H TERRELL Infusion Lactated Ringer's 1,000 mls @ 125 mls/hr 12/13/23 12:35 12/16/23 07:25 Lr - Lactated Ringers Iv IV CONT Not Given .Q8H TERRELL Lacosamide 200 mg 12/13/23 21:00 12/16/23 07:44 Lacosamide (*Crx) 100 Mg Tablet FEED TUBE 200 mg Q12H TERRELL Administration Levetiracetam 2,000 mg 12/13/23 21:00 12/16/23 07:43 Levetiracetam Oral Amparo 500 Mg/5 Ml Udc FEED TUBE 2,000 mg Q12H TERRELL Administration Metoprolol Tartrate 25 mg 12/13/23 21:00 12/16/23 07:44 Metoprolol Tartrate 25 Mg Tablet FEED TUBE 25 mg Q12H TERRELL Administration Multi-Ingred Cream/Lotion/Oil/Oint 1 applic 12/14/23 09:00 12/16/23 07:45 Eucerin Cream 120 Gm Jar TOPICAL 1 applic DAILY TERRELL Administration Mupirocin 1 applic 12/13/23 14:00 12/16/23 07:46 Mupirocin 2% Oint 22 Gm Tube EACH NARE 1 applic Q12HR TERRELL Administration Polyethylene Glycol 17 gm 12/13/23 21:00 12/16/23 07:43 Polyethylene Glycol 3350 17 Gm Powd.Pack FEED TUBE 17 gm Q12H TERRELL Administration Thiamine HCl 100 mg 12/13/23 15:20 12/16/23 07:44 Thiamine Hcl 100 Mg Tablet FEED TUBE 100 mg DAILY TERRELL Administration Valproate Sodium 500 mg 12/13/23 17:00 12/16/23 08:59 Valproic Acid Liq 250 Mg/5 Ml Oral Solution Udc FEED TUBE 500 mg QID TERRELL Administration Radiology Results: ITS Impressions Chest X-Ray 12/13/23 08:45 IMPRESSION: No acute cardiopulmonary pathology. Chest CT 12/13/23 10:03 IMPRESSION: 1. Pneumonia in the right lower lobe posteriorly. Minimal effusion cannot be excluded. 2. Status post placement of tracheostomy tube. 3. Tube seen in the stomach. 4. Left kidney stones. Labs Labs: Laboratory Results - last 24 hr 12/16/23 04:55 WBC 8.1 RBC 3.20 L Hgb 10.2 L Hct 31.6 L MCV 98.8 MCH 31.9 MCHC 32.3 RDW 13.2 Plt Count 202 D MPV 11.6 H Immature Gran % (Auto) 0.2 Neut % (Auto) 56.5 Lymph % (Auto) 22.7 [place] % (Auto) 15.6 H Eos % (Auto) 4.6 H Baso % (Auto) 0.4 Lymph # (Auto) 1.83 [place] # (Auto) 1.3 H Eos # (Auto) 0.4 H Baso # (Auto) 0.0 Abs Immat Gran (auto) 0.02 Absolute Neuts (auto) 4.6 Absolute Nucleated RBC 0.000 Nucleated RBC % 0.0 Sodium 144 Potassium 3.8 Chloride 111 H Carbon Dioxide 25 Anion Gap 8 BUN 17 Creatinine 2.20 H Estim Creat Clear Calc 34 Estimated GFR 37 L Glucose 99 Calcium 8.8 Magnesium 2.2 Procalcitonin 0.1
--- NOTE | 2023-12-16 11:55 | P.CONNP_ITS ---
Assessment and Plan Assessment and plan (1) Acute kidney injury: Code(s): N17.9 - Acute kidney failure, unspecified Status: Acute Assessment and Plan: The patient has suddenly high creatinine. It went from his baseline of 0.6 up to 1.9 in 1 day. Today leveled off at 2.2. Usually if this is due to a medication the creatinine will rise much more slowly. So I doubt if this is due to that high vancomycin level. He does not seem to have had any hypotension however at the care home he might have had a brief episode of hypotension plus his hypoxia which may have led to the renal failure there may have been a delay in the rise in creatinine because of his poor muscle mass due to his bed-bound state. He did not receive contrast with the CT scan that he got in the ER. Obstruction is a possibility. They did see kidney stones on the CT of the chest and so 1 might have flowed down stream obstructing 1 kidney. Rhabdomyolysis can do this as well but still this is quite sudden for even that. He has pneumonia and sputum grew Pseudomonas; this can of course affect the kidneys. He was on ibuprofen at the care home. This by itself probably would not have much of an effect but may be 1 of the straws involved. He has pyuria but his urine culture was negative. Other possibilities such as glomerulonephritis and interstitial nephritis I think are less likely. Will check electrolytes, renal ultrasound, CPK. He does not look dry. He has a little swelling and moist mucous membranes and his blood pressure is good. His a is already getting tube feedings. So I think we can cut back on his IV fluids for today. (2) Pneumonia: Qualifiers: Laterality: right Lung location: unspecified part of lung Pneumonia type: due to unspecified organism Qualified Code(s): J18.9 - Pneumonia, unspecified organism Code(s): J18.9 - Pneumonia, unspecified organism Status: Acute Assessment and Plan: Patient is getting antibiotics. (3) Cerebrovascular accident: Code(s): I63.9 - Cerebral infarction, unspecified Status: Chronic Assessment and Plan: He is aphasic and non communicative. (4) Tracheostomy in place: Code(s): Z93.0 - Tracheostomy status Status: Acute Assessment and Plan: He is getting local care for this. (5) 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 Assessment and Plan: He is getting tube feed History of Present Illness Reason for Consult Consult date: 12/16/23 Chief Complaint Chief complaint: pna History of Present Illness Narrative: Bi silvestre is a very pleasant 63-year-old gentleman has multiple medical problems including stroke, chronic respiratory failure with a permanent trach, poor intake resulting in a PEG tube, seizure disorder, dementia, BPH, COPD, esophageal diverticulum, DVT, gastroparesis, and iron deficiency anemia. The patient came into the hospital because of shortness of breath. He lives in a facility and developed shortness of breath somewhat suddenly. They called 911. When the ambulance got there they found him full of secretions. They were able to suction lots out any got much better. He was still hypoxic a so he was brought over to the ER. In the ER was found to have a pneumonia in the right lower lobe. He was given IV fluids and antibiotics and admitted. For the 1st day his creatinine was normal as it had been in the past. Yesterday and today suddenly it was around to so renal consultation was requested. The patient can not give a history. He has dementia and aphasia. He was able to follow 1 command however after that he did not interact. He has not received any contrast. His blood pressure has been good. He has not had any fevers. He has not had any offending medications. He did receive only 1 dose of vancomycin on the but then it was discontinued. [facility] Past Medical History Medical History Benign prostatic hyperplasia Cerebrovascular accident Residual expressive aphasia, dysphagia, and left-sided weakness. Chronic obstructive pulmonary disease Deep venous thrombosis of upper extremity Esophageal diverticulum Gastroparesis Iron deficiency anemia Seizure disorder Vascular dementia with psychotic disturbance Surgical History Surgical History History of gastrostomy tube placement History of left above knee amputation History of tracheostomy Family History Family History Other Unknown family medical history Social History Social History Social History: Surrogate medical decision maker: Adriane Hilliard, [email or web address]. Code status: Full code. 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 Additional gender identity comments: Never Spiritual care concerns: No Meds Home Medications and Allergies Home Medications Medication Instructions Recorded Confirmed Type atorvastatin 40 mg tablet 40 mg feeding tube QHS 11/14/22 12/13/23 History folic acid 1 mg tablet 1 mg feeding tube DAILY 11/14/22 12/13/23 History lacosamide 200 mg tablet 200 mg feeding tube Q12H 11/14/22 12/13/23 History aspirin 81 mg chewable tablet 81 mg feeding tube DAILY 11/15/22 12/13/23 History metoprolol tartrate 25 mg tablet 25 mg feeding tube Q12H 12/18/22 12/13/23 History polyethylene glycol 3350 17 17 g feeding tube Q12H 12/18/22 12/13/23 History gram/dose oral powder bisacodyl 10 mg rectal suppository 10 mg RECTAL DAILY PRN Constipation 02/11/23 12/13/23 History sennosides 8.6 mg tablet (senna) 8.6 mg feeding tube HS PRN 02/11/23 12/13/23 History Constipation sodium phosphates 19 gram-7 197 ml RECTAL ONCE 02/11/23 12/13/23 History gram/118 mL enema (Fleet Enema) thiamine HCl (vitamin B1) 100 mg 100 mg feeding tube DAILY 02/11/23 12/13/23 History tablet clobazam 10 mg tablet 15 mg feeding tube HS 03/21/23 12/13/23 History famotidine 20 mg tablet 20 mg feeding tube Q12H 03/21/23 12/13/23 History levetiracetam 100 mg/mL oral 2,000 mg feeding tube Q12H 03/21/23 12/13/23 History solution (Keppra) peg [id number] 1 1 drp EACH EYE 4-6XD PRN Dry Eyes 03/21/23 12/13/23 History %-0.2 %-0.2 % eye drops (Artificial Tears ([id number])) valproic acid (as sodium salt) 250 500 mg PO QID 03/21/23 12/13/23 History mg/5 mL oral solution calcium carbonate 500 mg/5 mL (as 1,250 mg feeding tube Q6H PRN 07/08/23 12/13/23 History calcium carb 1,250 mg/5 mL) oral Heartburn suspension guaifenesin 100 mg/5 mL oral liquid 600 mg feeding tube Q6HR 07/08/23 12/13/23 History ipratropium 0.5 mg-albuterol 3 mg 3 ml inhalation Q4H PRN Shortness 07/08/23 12/13/23 History (2.5 mg base)/3 mL nebulization Of Breath soln magnesium citrate 300 ml PO DAILY PRN Constipation 07/08/23 12/13/23 History Jevity 1.5 Bruno 50 ml G-tube Q6H 12/13/23 12/13/23 History ibuprofen 200 mg tablet 600 mg feeding tube PRN 12/13/23 12/13/23 History lanolin alcohols-mineral 1 applic topical DAILY 12/13/23 12/13/23 History oil-w.petrolatum-ceresin topical cream (Minerin Creme topical) magnesium hydroxide 400 mg/5 mL 30 ml feeding tube PRN 12/13/23 12/13/23 History oral suspension (Milk of Magnesia) Allergies Allergy/AdvReac Type Severity Reaction Status Date / Time clonazepam Allergy Unknown Unknown Verified 12/13/23 13:56 Vital Signs Vital Signs - 24 hr 12/15/23 12:00 12/15/23 13:21 12/15/23 13:21 Temperature 98.0 F Pulse Rate 97 96 96 Respiratory Rate 20 24 H 24 H Blood Pressure 137/59 L Pulse Oximetry 96 99 Oxygen Delivery High Flow Therapy with Tr Oxygen Flow Rate 30 Fraction of Inspired Oxygen 12/15/23 13:30 12/15/23 12:00 12/15/23 12:00 Temperature Pulse Rate 99 103 H Respiratory Rate 24 H Blood Pressure Pulse Oximetry 94 Oxygen Delivery High Flow Therapy with Tr Oxygen Flow Rate 30 Fraction of Inspired Oxygen 24 14:00 12/15/23 16:00 12/15/23 16:00 Temperature 98.7 F Pulse Rate 110 H 104 H 105 H Respiratory Rate 24 H Blood Pressure 142/63 H Pulse Oximetry 97 Oxygen Delivery Oxygen Flow Rate Fraction of Inspired Oxygen 12/15/23 16:00 12/15/23 18:00 12/15/23 20:00 Temperature 98.1 F Pulse Rate 106 H 105 H Respiratory Rate 19 Blood Pressure 139/68 Pulse Oximetry 95 97 Oxygen Delivery High Flow Therapy with Tr Oxygen Flow Rate 30 Fraction of Inspired Oxygen 21 12/15/23 20:20 12/15/23 20:20 12/15/23 21:35 Temperature Pulse Rate 100 100 113 H Respiratory Rate 26 H Blood Pressure Pulse Oximetry 94 Oxygen Delivery High Flow Therapy with Tr Oxygen Flow Rate 30 Fraction of Inspired Oxygen 21 12/15/23 20:00 12/16/23 00:00 12/16/23 02:10 Temperature 98.0 F Pulse Rate 113 H 105 H 94 Respiratory Rate 22 H 22 H 24 H Blood Pressure 138/60 Pulse Oximetry 94 93 Oxygen Delivery High Flow Therapy with Tr Oxygen Flow Rate 30 Fraction of Inspired Oxygen 21 12/15/23 20:30 12/16/23 02:18 12/16/23 07:27 Temperature 96.6 F L Pulse Rate 98 96 99 Respiratory Rate 26 H 24 H 16 Blood Pressure 149/76 H Pulse Oximetry 98 Oxygen Delivery Oxygen Flow Rate Fraction of Inspired Oxygen 12/16/23 08:05 12/16/23 08:05 12/16/23 08:20 Temperature Pulse Rate 101 H 102 H Respiratory Rate 18 18 Blood Pressure Pulse Oximetry 95 Oxygen Delivery High Flow Therapy with Tr Oxygen Flow Rate 30 Fraction of Inspired Oxygen 21 12/16/23 08:00 Temperature Pulse Rate Respiratory Rate Blood Pressure Pulse Oximetry 95 Oxygen Delivery High Flow Therapy with Tr Oxygen Flow Rate 30 Fraction of Inspired Oxygen 21 Exam Narrative: Exam Narrative: Well developed well-nourished male in no acute distress Skin is warm and dry without rash Head normocephalic atraumatic Eyes normal sclerae and conjunctivae Mouth normal lips teeth and gums. Mucous membranes are moist. Neck no nodes no thyromegaly no carotid bruits Axillae no nodes Back no CVA tenderness Lungs symmetric and coarse breath sounds bilaterally. No wheezes. Normal to percussion. Heart regular rate and rhythm without rub or gallop Abdomen bowel sounds positive soft nontender, no HSM, masses, or bruits. Extremities no cyanosis, clubbing, but trace to1+ bilateral edema Pulses 2+ equal in radial arteries Psychological not anxious or depressed but not interactive Neuro open his eyes with me calling his name but did not interact for very long. Motor tone is normal. 2-12 intact reflexes passively, however he did not follow instructions except that he did stick out his tongue and it was midline. Reflexes 1+ and equal in the biceps and trace in the patellar tendons cerebellar no tremor or seizures Results Lab Results 12/16/23 04:55 12/16/23 04:55 Lab results: Most recent lab results Calcium 8.8 mg/dL (8.4-10.2) 12/16/23 04:55 Phosphorus 3.7 mg/dL (2.5-4.5) 12/13/23 08:18 Magnesium 2.2 mg/dL (1.6-2.3) 12/16/23 04:55
[2023-12-16 12:04] LABS: Glucose Point of Care 125 mg/dl (65-105)
[2023-12-16 12:30] LABS: Creatine Kinase 191 U/L (55-170)
[2023-12-16 14:22] LABS: Creatinine Urine 17.9 mg/dL; Total Protein Urine Random 18 mg/dL; Ur Ttl Prot Creatinine Ratio 1.01 mg/mg (0-0.20)
[2023-12-16 14:23] LABS: Sodium Urine Random 128 meq/L
[2023-12-16 18:10] LABS: Glucose Point of Care 114 mg/dl (65-105)
[2023-12-16 20:39] LABS: Pneumococcal Antigen Urine NOT DETECTED
[2023-12-16] MEDS: cloBAZam (*CRX) 10 MG TABLET FEED TUBE (21:05)
[2023-12-16] MEDS: CLOBAZAM 5 MG FEED TUBE (21:05)
[2023-12-16] MEDS: ATORVASTATIN 40 MG TABLET FEED TUBE (21:05)
[2023-12-17] VITALS (18 sets, daily range): BP systolic 110–162; BP diastolic 45–92; PULSE 79–115; RESP 18–22; TEMP 36.1–36.9; O2SAT 91–99
[2023-12-17 00:55] LABS: Glucose Point of Care 121 mg/dl (65-105)
[2023-12-17] MEDS: IPRATROPIUM 0.5 MG/ALBUTEROL SULFATE 2.5 MG AMPUL.NEB 3 ML INHALATION ×4 (02:31→20:38)
[2023-12-17] MEDS: PIPERACILLN/TAZ 3.375GM/NS50ML 3.375 GM/50 ML BAG IVPB ×3 (05:55→17:03)
[2023-12-17] MEDS: guaiFENesin 200 MG/10 ML UDC 600 MG FEED TUBE ×3 (05:56→17:03)
[2023-12-17 06:12] LABS: Glucose Point of Care 125 mg/dl (65-105)
[2023-12-17 07:18] LABS: Hematocrit 34.2 % (42.0-52.0); Hemoglobin 11.3 g/dL (14.0-18.0); Mean Corpuscular Hemoglobin 32.6 pg (26-34); Mean Corpuscular Volume 98.6 fl (80-100); Mean Platelet Volume 11.7 fl (7.4-10.4); Platelet Count Result 226 k/mm3 (150-375); Red Blood Count 3.47 M/mm3 (4.6-6.20); Red Cell Distribution Width 13.4 % (11.5-14.5); White Blood Count 8.7 K/mm3 (4.5-10.0)
[2023-12-17 07:34] LABS: Anion Gap 8 mmol/L (4-12); Blood Urea Nitrogen 16 mg/dL (9-20); Carbon Dioxide 28 mmol/L (22-30); Chloride 110 mmol/L (98-107); Estimated CRCL calculation 49 ml/min; Estimated Glomerular Filt Rate 57; Glucose 133 mg/dL (65-110); Magnesium 2.1 mg/dL (1.6-2.3); Sodium 146 mmol/L (137-145)
[2023-12-17] MEDS: ASPIRIN 81 MG CHEWABLE TABLET FEED TUBE (08:57)
[2023-12-17] MEDS: FOLIC ACID 1 MG TABLET FEED TUBE (08:57)
[2023-12-17] MEDS: FAMOTIDINE 20 MG TABLET FEED TUBE ×2 (08:57→21:03)
[2023-12-17] MEDS: THIAMINE HCL 100 MG TABLET FEED TUBE (08:57)
[2023-12-17] MEDS: METOPROLOL TARTRATE 25 MG TABLET FEED TUBE ×2 (08:57→21:04)
[2023-12-17] MEDS: LACOSAMIDE (*CRX) 100 MG TABLET 200 MG FEED TUBE ×2 (08:57→21:03)
[2023-12-17] MEDS: ENOXAPARIN 40 MG/0.4 ML SYRINGE SUB-Q (08:57)
[2023-12-17] MEDS: MUPIROCIN 2% OINT 22 GM TUBE 1 APPLIC EACH NARE ×2 (08:58→21:04)
[2023-12-17] MEDS: AZITHROMYCIN 500 MG/NS 250 ML 500 MG/250 ML BAG 150 MG IVPB (08:58)
[2023-12-17] MEDS: EUCERIN CREAM 120 GM JAR 1 APPLIC TOPICAL (09:04)
[2023-12-17] MEDS: levETIRAcetam ORAL SOL 500 MG/5 ML UDC 2000 MG FEED TUBE ×2 (09:06→21:03)
[2023-12-17] MEDS: VALPROIC ACID LIQ 250 MG/5 ML ORAL SOLUTION UDC 500 MG FEED TUBE ×4 (09:06→21:03)
[2023-12-17 11:43] LABS: Glucose Point of Care 111 mg/dl (65-105)
--- NOTE | 2023-12-17 13:39 | PM.IMPN ---
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 Vancomycin discontinued, he has MRSA nares positive but believe this is colonization and he does not appear septic. Pseudomonas growing in the sputum culture. Pansensitive Chronic anemia stable Patient has a baseline low serum creatinine likely due to his low muscle mass. On 2nd day of admission his serum creatinine dose from 0.6-1.9. His serum creatinine on the 3rd day is 2.2. Multiple etiologies to consider. Neurology consulted and their assistance the greatly appreciated. Nephrology note appreciated. 12/17/2023 serum creatinine has now improved to 1.5. Continue current management and trend daily renal function. Renal ultrasound demonstrated normal kidneys without hydronephrosis Junky upper airway sounds improved. Continue scheduled nebs, scheduled suctioning, chest physiotherapy. Artificial tears. This is worsened on 12/17/2023. Add Pulmozyme q.day to start today. Full code. Chronically ill. Stable on medical floor. IV fluids discontinued. Continue tube feeds. Lovenox for DVT prophylaxis. Subjective Date/time seen: 12/17/23 13:39 Interval history: No major acute overnight events. The patient indicates he is not in pain or has shortness of breath by shaking his head no. Nursing reports noting he has increased secretions needing suctioning. Review of Systems Review of Systems: All systems reviewed & are unremarkable except as noted in HPI and below (Subjective) Exam Const: General: comfortable Eyes: Pupils: Equal, round and reactive pupils present Neck: Neck: supple Resp: Other: Junky upper airway sound, worsened and thicker sounding. Cardio: Rate: regular rate Rhythm: regular rhythm GI: GI Palp: Yes Soft to palpation and No Tenderness to palpation present (GI) Extrem: General: no edema Objective Data Vital Signs Vital Signs: Vital Signs - 24 hr 12/16/23 14:27 12/16/23 14:27 12/16/23 14:00 Temperature 96.9 F L Pulse Rate 93 97 Respiratory Rate 18 24 H Blood Pressure 158/87 H Pulse Oximetry 95 98 Oxygen Delivery High Flow Therapy with Tr Oxygen Flow Rate 30 Fraction of Inspired Oxygen 21 12/16/23 14:40 12/16/23 20:43 12/16/23 20:43 Temperature Pulse Rate 95 91 91 Respiratory Rate 18 20 Blood Pressure Pulse Oximetry 95 Oxygen Delivery High Flow Therapy with Tr Oxygen Flow Rate 30 Fraction of Inspired Oxygen 21 12/16/23 20:55 12/16/23 21:05 12/16/23 20:00 Temperature 97.4 F L Pulse Rate 93 93 96 Respiratory Rate 20 18 Blood Pressure 166/84 H Pulse Oximetry 97 Oxygen Delivery Oxygen Flow Rate Fraction of Inspired Oxygen 12/17/23 02:31 12/17/23 02:33 12/17/23 02:43 Temperature Pulse Rate 93 93 92 Respiratory Rate 20 20 Blood Pressure Pulse Oximetry 95 Oxygen Delivery High Flow Therapy with Tr Oxygen Flow Rate 30 Fraction of Inspired Oxygen 12/17/23 05:30 12/17/23 07:12 12/17/23 08:11 Temperature 97 F L Pulse Rate 95 92 Respiratory Rate 18 20 Blood Pressure 162/92 H Pulse Oximetry 95 Oxygen Delivery Oxygen Flow Rate Fraction of Inspired Oxygen 12/17/23 08:13 12/17/23 08:00 12/17/23 08:00 Temperature 98.0 F Pulse Rate 93 88 Respiratory Rate 22 H 18 Blood Pressure 110/45 L Pulse Oximetry 95 92 95 Oxygen Delivery High Flow Therapy with Tr High Flow Therapy with Tr Oxygen Flow Rate 30 30 Fraction of Inspired Oxygen 12/17/23 08:57 Temperature Pulse Rate 93 Respiratory Rate Blood Pressure Pulse Oximetry Oxygen Delivery Oxygen Flow Rate Fraction of Inspired Oxygen Intake/Output Intake/Output: Intake & Output 12/14/23 12/15/23 12/16/23 12/17/23 23:59 23:59 23:59 23:59 Intake Total 2937.5 6681 1450 400 Output Total 1300 1850 2901 2400 Balance 1637.5 0969 -4859 -3917 Meds/Results Medications: Active Medications Generic Name Dose Route Start Last Admin Trade Name Freq PRN Reason Stop Dose Admin Albuterol/Ipratropium 3 ml 12/13/23 14:00 12/17/23 08:02 Ipratropium 0.5 Mg/Albuterol Sulfate 2.5 Mg Ampul.Neb 3 Ml INHALATION 3 ml Q6HRT TERRELL Administration Artificial Tears 1 drop 12/13/23 15:08 Artificial Tears Ophth Soln 15 Ml Bottle EACH EYE Q4-6H PRN Dry Eyes Aspirin 81 mg 12/13/23 15:15 12/17/23 08:57 Aspirin 81 Mg Chewable Tablet FEED TUBE 81 mg DAILY TERRELL Administration Atorvastatin Calcium 40 mg 12/13/23 21:00 12/16/23 21:05 Atorvastatin 40 Mg Tablet FEED TUBE 40 mg QHS TERRELL Administration Bisacodyl 10 mg 12/13/23 15:08 Bisacodyl 10 Mg Suppository RECTAL DAILY PRN Constipation Calcium Carbonate 400 mg 12/13/23 15:20 Calcium Carbonate (Tums) 500 Mg (200 Mg Elemental) FEED TUBE Q6H PRN Heartburn Clobazam 5 mg 12/13/23 21:00 12/16/23 21:05 Clobazam (*Crx) 5 Mg Tablet FEED TUBE 5 mg HS TERRELL Administration Clobazam 10 mg 12/13/23 21:00 12/16/23 21:05 Clobazam (*Crx) 10 Mg Tablet FEED TUBE 10 mg HS TERRELL Administration Dornase Zafar 2.5 mg 12/17/23 13:40 Dornase Zafar Inh Soln 1 Mg/Ml 2.5 Ml Amp INHALATION DAILYRT TERRELL Enoxaparin Sodium 40 mg 12/14/23 09:00 12/17/23 08:57 Enoxaparin 40 Mg/0.4 Ml Syringe SUB-Q 40 mg DAILY TERRELL Administration Famotidine 20 mg 12/13/23 21:00 12/17/23 08:57 Famotidine 20 Mg Tablet FEED TUBE 20 mg Q12H TERRELL Administration Folic Acid 1 mg 12/13/23 15:15 12/17/23 08:57 Folic Acid 1 Mg Tablet FEED TUBE 1 mg DAILY TERRELL Administration Guaifenesin 600 mg 12/13/23 18:00 12/17/23 11:23 Guaifenesin 200 Mg/10 Ml Udc FEED TUBE 600 mg Q6HR TERRELL Administration Piperacillin/Tazobactam/Dextrose 3.375 gm in 50 mls @ 100 mls/hr 12/13/23 18:00 12/17/23 11:53 Zosyn 3.375 Gm/Ns 50 Ml IVPB Infused Q6H TERRELL Infusion Azithromycin 500 mg in 250 mls @ 250 mls/hr 12/14/23 09:00 12/17/23 10:39 Zithromax IVPB Infused Q24H TERRELL Infusion Lacosamide 200 mg 12/13/23 21:00 12/17/23 08:57 Lacosamide (*Crx) 100 Mg Tablet FEED TUBE 200 mg Q12H TERRELL Administration Levetiracetam 2,000 mg 12/13/23 21:00 12/17/23 09:06 Levetiracetam Oral Amparo 500 Mg/5 Ml Udc FEED TUBE 2,000 mg Q12H TERRELL Administration Metoprolol Tartrate 25 mg 12/13/23 21:00 12/17/23 08:57 Metoprolol Tartrate 25 Mg Tablet FEED TUBE 25 mg Q12H TERRELL Administration Multi-Ingred Cream/Lotion/Oil/Oint 1 applic 12/14/23 09:00 12/17/23 09:04 Eucerin Cream 120 Gm Jar TOPICAL 1 applic DAILY TERRELL Administration Mupirocin 1 applic 12/13/23 14:00 12/17/23 08:58 Mupirocin 2% Oint 22 Gm Tube EACH NARE 1 applic Q12HR TERRELL Administration Polyethylene Glycol 17 gm 12/13/23 21:00 12/17/23 08:58 Polyethylene Glycol 3350 17 Gm Powd.Pack FEED TUBE Not Given Q12H TERRELL Thiamine HCl 100 mg 12/13/23 15:20 12/17/23 08:57 Thiamine Hcl 100 Mg Tablet FEED TUBE 100 mg DAILY TERRELL Administration Valproate Sodium 500 mg 12/13/23 17:00 12/17/23 12:02 Valproic Acid Liq 250 Mg/5 Ml Oral Solution Udc FEED TUBE 500 mg QID TERRELL Administration Radiology Results: ITS Impressions Chest X-Ray 12/13/23 08:45 IMPRESSION: No acute cardiopulmonary pathology. Chest CT 12/13/23 10:03 IMPRESSION: 1. Pneumonia in the right lower lobe posteriorly. Minimal effusion cannot be excluded. 2. Status post placement of tracheostomy tube. 3. Tube seen in the stomach. 4. Left kidney stones. Renal Ultrasound 12/16/23 16:44 IMPRESSION: 1. Normal kidneys without hydronephrosis. Labs Labs: Laboratory Results - last 24 hr 12/13/23 12/16/23 12/16/23 14:15 14:06 18:04 WBC RBC Hgb Hct MCV MCH MCHC RDW Plt Count MPV Sodium Potassium Chloride Carbon Dioxide Anion Gap BUN Creatinine Estim Creat Clear Calc Estimated GFR Glucose POC Capillary Glucose 114 H Calcium Magnesium U Random Total Protein 18 Ur Random Sodium 128 Urine Creatinine 17.9 Protein/Creat Ratio 2 1.01 H Urine Pneumococcal Ag Not detected 12/17/23 12/17/23 12/17/23 00:40 05:32 07:10 WBC 8.7 RBC 3.47 L Hgb 11.3 L Hct 34.2 L MCV 98.6 MCH 32.6 MCHC 33.0 RDW 13.4 Plt Count 226 MPV 11.7 H Sodium 146 H Potassium 4.0 Chloride 110 H Carbon Dioxide 28 Anion Gap 8 BUN 16 Creatinine 1.50 H Estim Creat Clear Calc 49 Estimated GFR 57 L Glucose 133 H POC Capillary Glucose 121 H 125 H Calcium 9.0 Magnesium 2.1 U Random Total Protein Ur Random Sodium Urine Creatinine Protein/Creat Ratio 2 Urine Pneumococcal Ag 12/17/23 11:32 WBC RBC Hgb Hct MCV MCH MCHC RDW Plt Count MPV Sodium Potassium Chloride Carbon Dioxide Anion Gap BUN Creatinine Estim Creat Clear Calc Estimated GFR Glucose POC Capillary Glucose 111 H Calcium Magnesium U Random Total Protein Ur Random Sodium Urine Creatinine Protein/Creat Ratio 2 Urine Pneumococcal Ag
[2023-12-17] MEDS: DORNASE ALFA INH SOLN 1 MG/ML 2.5 ML AMP 2.5 MG INHALATION (15:22)
--- NOTE | 2023-12-17 15:39 | PM.PNNEP ---
Progress Note: A&P Assessment and Plan (1) Acute kidney injury: Code(s): N17.9 - Acute kidney failure, unspecified Status: Acute Assessment and Plan: The patient has suddenly high creatinine. It went from his baseline of 0.6 up to 1.9 in 1 day then 2.2, and now below 2. Urine electrolytes are non pre renal CK was not elevated enough to do anything. Ultrasound shows no hydro and normal kidneys Possibly hemodynamic issue room 1 May be related to a brief episode of hypotension or hypoxia just before admission. He was on [place]upro[place] the [place] [facility]. This by itself probably would not have much of an effect but may be additive to the above He has pyuria but his urine culture was negative. sodium level kim overnight. possibly due to increased insensible loss of water due to trach. I talked with Dr. Harrison. He will increase free water flushes. (2) Pneumonia: Qualifiers: Laterality: right Lung location: unspecified part of lung Pneumonia type: due to unspecified organism Qualified Code(s): J18.9 - Pneumonia, unspecified organism Code(s): J18.9 - Pneumonia, unspecified organism Status: Acute Assessment and Plan: Patient is getting antibiotics. He is also getting pulmonary toilet and now Pulmozyme (3) Cerebrovascular accident: Code(s): I63.9 - Cerebral infarction, unspecified Status: Chronic Assessment and Plan: He is aphasic and non communicative. (4) Tracheostomy in place: Code(s): Z93.0 - Tracheostomy status Status: Acute Assessment and Plan: He is getting local care for this. (5) 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 Assessment and Plan: He is getting tube feed Subjective Date/time seen: 12/17/23 15:39 Interval history: Patient is unresponsive he does have some pulmonary excretions. He is going to get a dose of Pulmozyme today. Exam Narrative: WDWN in NAD skin no rash head ncat lungs Mildly coarse bilaterally cor reg no rub abd BS+ nontender and soft ext trace bilat edema. Objective Data Vital Signs Vital Signs: Vital Signs - 24 hr 12/16/23 20:43 12/16/23 20:43 12/16/23 20:55 Temperature Pulse Rate 91 91 93 Respiratory Rate 20 20 Blood Pressure Pulse Oximetry 95 Oxygen Delivery High Flow Therapy with Tr Oxygen Flow Rate 30 Fraction of Inspired Oxygen 21 12/16/23 21:05 12/16/23 20:00 12/17/23 02:31 Temperature 97.4 F L Pulse Rate 93 96 93 Respiratory Rate 18 20 Blood Pressure 166/84 H Pulse Oximetry 97 Oxygen Delivery Oxygen Flow Rate Fraction of Inspired Oxygen 12/17/23 02:33 12/17/23 02:43 12/17/23 05:30 Temperature 97 F L Pulse Rate 93 92 95 Respiratory Rate 20 18 Blood Pressure Pulse Oximetry 95 95 Oxygen Delivery High Flow Therapy with Tr Oxygen Flow Rate 30 Fraction of Inspired Oxygen 21 12/17/23 07:12 12/17/23 08:11 12/17/23 08:13 Temperature Pulse Rate 92 93 Respiratory Rate 20 22 H Blood Pressure 162/92 H Pulse Oximetry 95 Oxygen Delivery High Flow Therapy with Tr Oxygen Flow Rate 30 Fraction of Inspired Oxygen 21 12/17/23 08:00 12/17/23 08:00 12/17/23 08:57 Temperature 98.0 F Pulse Rate 88 93 Respiratory Rate 18 Blood Pressure 110/45 L Pulse Oximetry 92 95 Oxygen Delivery High Flow Therapy with Tr Oxygen Flow Rate 30 Fraction of Inspired Oxygen 21 12/17/23 15:29 12/17/23 15:15 12/17/23 15:35 Temperature Pulse Rate 92 92 92 Respiratory Rate 22 H 22 H 20 Blood Pressure Pulse Oximetry 99 Oxygen Delivery High Flow Therapy with Tr Oxygen Flow Rate 30 Fraction of Inspired Oxygen 21 Intake/Output Intake/Output: Intake & Output 12/14/23 12/15/23 12/16/23 12/17/23 23:59 23:59 23:59 23:59 Intake Total 2937.5 6681 1450 400 Output Total 1300 1850 2901 2400 Balance 1637.5 4831 -1451 -2000 Meds/Results Medications: Active Medications Generic Name Dose Route Start Last Admin Trade Name Freq PRN Reason Stop Dose Admin Albuterol/Ipratropium 3 ml 12/13/23 14:00 12/17/23 15:22 Ipratropium 0.5 Mg/Albuterol Sulfate 2.5 Mg Ampul.Neb 3 Ml INHALATION 3 ml Q6HRT TERRELL Administration Artificial Tears 1 drop 12/13/23 15:08 Artificial Tears Ophth Soln 15 Ml Bottle EACH EYE Q4-6H PRN Dry Eyes Aspirin 81 mg 12/13/23 15:15 12/17/23 08:57 Aspirin 81 Mg Chewable Tablet FEED TUBE 81 mg DAILY TERRELL Administration Atorvastatin Calcium 40 mg 12/13/23 21:00 12/16/23 21:05 Atorvastatin 40 Mg Tablet FEED TUBE 40 mg QHS TERRELL Administration Bisacodyl 10 mg 12/13/23 15:08 Bisacodyl 10 Mg Suppository RECTAL DAILY PRN Constipation Calcium Carbonate 400 mg 12/13/23 15:20 Calcium Carbonate (Tums) 500 Mg (200 Mg Elemental) FEED TUBE Q6H PRN Heartburn Clobazam 5 mg 12/13/23 21:00 12/16/23 21:05 Clobazam (*Crx) 5 Mg Tablet FEED TUBE 5 mg HS TERRELL Administration Clobazam 10 mg 12/13/23 21:00 12/16/23 21:05 Clobazam (*Crx) 10 Mg Tablet FEED TUBE 10 mg HS TERRELL Administration Dornase Zafar 2.5 mg 12/17/23 13:40 12/17/23 15:22 Dornase Zafar Inh Soln 1 Mg/Ml 2.5 Ml Amp INHALATION 2.5 mg DAILYRT TERRELL Administration Enoxaparin Sodium 40 mg 12/14/23 09:00 12/17/23 08:57 Enoxaparin 40 Mg/0.4 Ml Syringe SUB-Q 40 mg DAILY TERRELL Administration Famotidine 20 mg 12/13/23 21:00 12/17/23 08:57 Famotidine 20 Mg Tablet FEED TUBE 20 mg Q12H TERRELL Administration Folic Acid 1 mg 12/13/23 15:15 12/17/23 08:57 Folic Acid 1 Mg Tablet FEED TUBE 1 mg DAILY TERRELL Administration Guaifenesin 600 mg 12/13/23 18:00 12/17/23 11:23 Guaifenesin 200 Mg/10 Ml Udc FEED TUBE 600 mg Q6HR TERRELL Administration Piperacillin/Tazobactam/Dextrose 3.375 gm in 50 mls @ 100 mls/hr 12/13/23 18:00 12/17/23 11:53 Zosyn 3.375 Gm/Ns 50 Ml IVPB Infused Q6H TERRELL Infusion Azithromycin 500 mg in 250 mls @ 250 mls/hr 12/14/23 09:00 12/17/23 10:39 Zithromax IVPB Infused Q24H TERRELL Infusion Lacosamide 200 mg 12/13/23 21:00 12/17/23 08:57 Lacosamide (*Crx) 100 Mg Tablet FEED TUBE 200 mg Q12H TERRELL Administration Levetiracetam 2,000 mg 12/13/23 21:00 12/17/23 09:06 Levetiracetam Oral Amparo 500 Mg/5 Ml Udc FEED TUBE 2,000 mg Q12H TERRELL Administration Metoprolol Tartrate 25 mg 12/13/23 21:00 12/17/23 08:57 Metoprolol Tartrate 25 Mg Tablet FEED TUBE 25 mg Q12H TERRELL Administration Multi-Ingred Cream/Lotion/Oil/Oint 1 applic 12/14/23 09:00 12/17/23 09:04 Eucerin Cream 120 Gm Jar TOPICAL 1 applic DAILY TERRELL Administration Mupirocin 1 applic 12/13/23 14:00 12/17/23 08:58 Mupirocin 2% Oint 22 Gm Tube EACH NARE 1 applic Q12HR TERRELL Administration Polyethylene Glycol 17 gm 12/13/23 21:00 12/17/23 08:58 Polyethylene Glycol 3350 17 Gm Powd.Pack FEED TUBE Not Given Q12H TERRELL Thiamine HCl 100 mg 12/13/23 15:20 12/17/23 08:57 Thiamine Hcl 100 Mg Tablet FEED TUBE 100 mg DAILY TERRELL Administration Valproate Sodium 500 mg 12/13/23 17:00 12/17/23 12:02 Valproic Acid Liq 250 Mg/5 Ml Oral Solution Udc FEED TUBE 500 mg QID TERRELL Administration Radiology Results: ITS Impressions Chest X-Ray 12/13/23 08:45 IMPRESSION: No acute cardiopulmonary pathology. Chest CT 12/13/23 10:03 IMPRESSION: 1. Pneumonia in the right lower lobe posteriorly. Minimal effusion cannot be excluded. 2. Status post placement of tracheostomy tube. 3. Tube seen in the stomach. 4. Left kidney stones. Renal Ultrasound 12/16/23 16:44 IMPRESSION: 1. Normal kidneys without hydronephrosis. Labs Labs: Laboratory Results - last 24 hr 12/13/23 12/16/23 12/17/23 14:15 18:04 00:40 WBC RBC Hgb Hct MCV MCH MCHC RDW Plt Count MPV Sodium Potassium Chloride Carbon Dioxide Anion Gap BUN Creatinine Estim Creat Clear Calc Estimated GFR Glucose POC Capillary Glucose 114 H 121 H Calcium Magnesium Urine Pneumococcal Ag Not detected 12/17/23 12/17/23 12/17/23 05:32 07:10 11:32 WBC 8.7 RBC 3.47 L Hgb 11.3 L Hct 34.2 L MCV 98.6 MCH 32.6 MCHC 33.0 RDW 13.4 Plt Count 226 MPV 11.7 H Sodium 146 H Potassium 4.0 Chloride 110 H Carbon Dioxide 28 Anion Gap 8 BUN 16 Creatinine 1.50 H Estim Creat Clear Calc 49 Estimated GFR 57 L Glucose 133 H POC Capillary Glucose 125 H 111 H Calcium 9.0 Magnesium 2.1 Urine Pneumococcal Ag
[2023-12-17 18:30] LABS: Glucose Point of Care 121 mg/dl (65-105)
[2023-12-17] MEDS: CLOBAZAM 5 MG FEED TUBE (21:03)
[2023-12-17] MEDS: cloBAZam (*CRX) 10 MG TABLET FEED TUBE (21:03)
[2023-12-17] MEDS: ATORVASTATIN 40 MG TABLET FEED TUBE (21:04)
[2023-12-18] VITALS (7 sets, daily range): BP systolic 148; BP diastolic 85; PULSE 71–92; RESP 18–20; TEMP 36.4; O2SAT 94–96
[2023-12-18] MEDS: guaiFENesin 200 MG/10 ML UDC 600 MG FEED TUBE ×2 (00:40→05:19)
[2023-12-18] MEDS: PIPERACILLN/TAZ 3.375GM/NS50ML 3.375 GM/50 ML BAG IVPB ×2 (00:40→05:27)
[2023-12-18] MEDS: IPRATROPIUM 0.5 MG/ALBUTEROL SULFATE 2.5 MG AMPUL.NEB 3 ML INHALATION ×2 (02:12→07:31)
[2023-12-18 07:33] LABS: Hematocrit 34.1 % (42.0-52.0); Hemoglobin 11.1 g/dL (14.0-18.0); Mean Corpuscular HGB Conc 32.6 g/dl (32-36); Mean Corpuscular Hemoglobin 32.3 pg (26-34); Mean Corpuscular Volume 99.1 fl (80-100); Mean Platelet Volume 11.5 fl (7.4-10.4); Platelet Count Result 213 k/mm3 (150-375); Red Blood Count 3.44 M/mm3 (4.6-6.20); Red Cell Distribution Width 13.5 % (11.5-14.5)
[2023-12-18] MEDS: DORNASE ALFA INH SOLN 1 MG/ML 2.5 ML AMP 2.5 MG INHALATION (07:44)
[2023-12-18 07:46] LABS: Glucose Point of Care 118 mg/dl (65-105)
[2023-12-18 08:04] LABS: Anion Gap 10 mmol/L (4-12); Blood Urea Nitrogen 16 mg/dL (9-20); Calcium 8.9 mg/dL (8.4-10.2); Carbon Dioxide 24 mmol/L (22-30); Chloride 111 mmol/L (98-107); Estimated CRCL calculation 61 ml/min; Estimated Glomerular Filt Rate > 60; Glucose 116 mg/dL (65-110); Potassium 4.2 mmol/L (3.4-5.0); Sodium 145 mmol/L (137-145)
--- NOTE | 2023-12-18 09:11 | P.DS_ITS ---
DS: Admitting Diagnosis Discharge Date December 18, 2023 Admitting Diagnosis Respiratory distress DS: Discharge Diagnosis Discharge Diagnosis (1) Increased tracheal secretions: Code(s): J39.8 - Other specified diseases of upper respiratory tract Status: Acute (2) Pneumonia: Qualifiers: Laterality: right Lung location: unspecified part of lung Pneumonia type: due to unspecified organism Qualified Code(s): J18.9 - Pneumonia, unspecified organism Code(s): J18.9 - Pneumonia, unspecified organism Status: Acute DS: Summary Hospital Course Hospital Course: This is a 63-year-old male with a [facility] [place] stroke, chronic respiratory failure status post tracheostomy and PEG tube, seizure disorder, dementia who is bed-bound, a [place] [facility] resident of [facility]. He was brought to [place] [facility] via EMS for evaluation of shortness of breath. The patient typically nods and shakes his head to indicate his answers but does not verbalize otherwise. The morning of admission the patient was noted to be hypoxic and short of breath. EMS patient id large amount of secretions from his tracheostomy with improvement in his symptoms. On arrival to [place] [facility] he was saturating in the upper 90s on 30% oxygen via trach collar. He was hemodynamically stable. Quad viral screen negative. Chest CT demonstrated pneumonia in the right lower lobe posteriorly. Patient was given fluids, azithromycin, Zosyn, vancomycin and admitted for aspiration/bacterial pneumonia on 12/13/2023 MRSA nares resulted positive however the patient appears to be a colonizer. He was not septic otherwise. Vancomycin discontinued and Zosyn, azithromycin continued. He received a total of 6 days. Urine pneumococcal antigen not detected. Mycoplasma IgM and Legionella urinary antigen pending. Urine cultures and blood cultures no growth. Sputum culture growing mixed heidi with light growth Pseudomonas aeruginosa and heavy growth Proteus mirabilis. Both of these were sensitive to Zosyn. His secretions were well managed with pulmonary toilet, frequent suctioning, Pulmozyme. He is to continue these at the discretion of the deputy director of nursing. Recommendations have been made. The patient did develop an SAMANTHA, serum creatinine peaking at 2.2. The patient may have been volume down however his urine electrolytes indicated non pre renal cause. CK was only very mildly elevated. Renal ultrasound did not demonstrate hydronephrosis. Could have been possibly due to an episode of hypoxia. This did improve with fluid resuscitation. He also had mild hypernatremia with a sodium of 146 which improved with increase the free water flushes which will be continued on discharge at the alf. He is stable for discharge to his usual [facility] facility for [place] care 12/18/2023. The patient was full code. Status at Discharge Functional status at discharge: bed bound Overall status at discharge: patient is back to baseline Time Spent with Patient Time attestation: Total time spent providing and/or coordinating discharge services: Time spent: Greater than 30 minutes Exam Const: General: comfortable and no acute distress Other: Occasionally follows commands. Eyes: Pupils: Equal, round and reactive pupils present Neck: Neck: supple Resp: Effort & Inspection: normal respiratory effort Other: Upper airway secretions, improved Cardio: Rate: regular rate Rhythm: regular rhythm GI: GI Palp: Yes Soft to palpation and No Tenderness to palpation present (GI) Extrem: General: no edema DS: Data Data Completed and Pending Labs on day of discharge: Labs from last 24 hours 12/18/23 12/18/23 12/17/23 07:23 07:22 18:27 WBC 8.0 RBC 3.44 L Hgb 11.1 L Hct 34.1 L MCV 99.1 MCH 32.3 MCHC 32.6 RDW 13.5 Plt Count 213 MPV 11.5 H Sodium 145 Potassium 4.2 Chloride 111 H Carbon Dioxide 24 Anion Gap 10 BUN 16 Creatinine 1.20 Estim Creat Clear Calc 61 Estimated GFR > 60 Glucose 116 H POC Capillary Glucose 118 H 121 H Calcium 8.9 Magnesium 2.0 12/17/23 11:32 WBC RBC Hgb Hct MCV MCH MCHC RDW Plt Count MPV Sodium Potassium Chloride Carbon Dioxide Anion Gap BUN Creatinine Estim Creat Clear Calc Estimated GFR Glucose POC Capillary Glucose 111 H Calcium Magnesium Preliminary micro results at discharge 12/13/23 08:18 Blood Culture - Preliminary Blood 12/13/23 09:21 Blood Culture - Preliminary Blood Discharge Plan Discharge Attending physician on discharge: Jacquelyn Harrison Consulting providers: Christiano Lockhart Discharging Clinician: Jacquelyn Harrison Patient Disposition: [facility] Activity: no preference Diet: other - see discharge instructions Discharge Instructions: Jevity 1.5 @ 50cc/hr 350 free water flushes q6hr pulmonary toilet q2hr suction as needed pulmozyme/hypertonic nebs per [facility] doctor Patient Instructions: Antibiotic Form Stand Alone Forms: General Discharge Information Follow-up/Referrals: Lauro,MD Burke [Primary Care Provider] - Keep Reg. Scheduled Appt. Discharge Medications: Continued bisacodyl 10 mg Suppository 10 mg RECTAL DAILY PRN (Reason: Constipation) Rx Instructions: if no results for MOM sennosides [senna] 8.6 mg Tablet 8.6 mg feeding tube HS PRN (Reason: Constipation) Rx Instructions: constipation thiamine HCl (vitamin B1) 100 mg Tablet 100 mg feeding tube DAILY calcium carbonate 500 mg/5 mL (1,250 mg/5 mL) Suspension 1,250 mg feeding tube Q6H PRN (Reason: Heartburn) ipratropium-albuterol 0.5 mg-3 mg(2.5 mg base)/3 mL solution for nebulization 3 ml inhalation Q4H PRN (Reason: Shortness Of Breath) guaifenesin 100 mg/5 mL liquid 600 mg feeding tube Q6HR magnesium citrate Solution 300 ml PO DAILY PRN (Reason: Constipation) Rx Instructions: as needed for constipation in AM if no results after enema Minerin Creme Cream 1 applic TOPICAL DAILY magnesium hydroxide [Milk of Magnesia] 400 mg/5 mL Suspension 30 ml feeding tube PRN ibuprofen 200 mg Tablet 600 mg feeding tube PRN atorvastatin 40 mg tablet 40 mg feeding tube QHS folic acid 1 mg tablet 1 mg feeding tube DAILY lacosamide 200 mg tablet 200 mg feeding tube Q12H aspirin 81 mg Tablet,Chewable 81 mg feeding tube DAILY polyethylene glycol 3350 17 gram/dose powder 17 g feeding tube Q12H metoprolol tartrate 25 mg tablet 25 mg feeding tube Q12H famotidine 20 mg tablet 20 mg feeding tube Q12H clobazam 10 mg tablet 15 mg feeding tube HS levetiracetam [Keppra] 100 mg/mL Solution 2,000 mg feeding tube Q12H valproic acid (as sodium salt) 250 mg/5 mL Solution 500 mg PO QID Artificial Tears([id number]) 1-0.2-0.2 % Drops 1 drp EACH EYE 4-6XD PRN (Reason: Dry Eyes) Discontinued Fleet Enema 19-7 gram/118 mL Enema 197 ml RECTAL ONCE Rx Instructions: 1 application as needed for constipation if no results 1 day after suppository. Jevity 1.5 Bruno 50 ml G-tube Q6H Date of admission: 12/13/23 12:35 Primary Care Provider: LauroBurke Admitting Provider: Zeferino Morfin Attending physician on admission: Zeferino Morfin Condition: Improved Hospitalist MIPS Heart Failure (Exclusion) Patient has history of Heart Transplant or Left Ventricular Assistive Device?: No IF YES, STOP HERE Heart Failure (Qualifier) Patient has current or prior documentation of LVEF less than or equal to 40%, or mod/servere depressed LVSF?: No IF NO, STOP HERE
[2023-12-18] MEDS: ENOXAPARIN 40 MG/0.4 ML SYRINGE SUB-Q (09:54)
[2023-12-18] MEDS: ASPIRIN 81 MG CHEWABLE TABLET FEED TUBE (09:54)
[2023-12-18] MEDS: AZITHROMYCIN 500 MG/NS 250 ML 500 MG/250 ML BAG 250 MG IVPB (09:54)
[2023-12-18] MEDS: levETIRAcetam ORAL SOL 500 MG/5 ML UDC 2000 MG FEED TUBE (09:55)
[2023-12-18] MEDS: polyethylene glycoL 3350 17 GM POWD.PACK FEED TUBE (09:55)
[2023-12-18] MEDS: FAMOTIDINE 20 MG TABLET FEED TUBE (09:55)
[2023-12-18] MEDS: FOLIC ACID 1 MG TABLET FEED TUBE (09:55)
[2023-12-18] MEDS: LACOSAMIDE (*CRX) 100 MG TABLET 200 MG FEED TUBE (09:55)
[2023-12-18] MEDS: VALPROIC ACID LIQ 250 MG/5 ML ORAL SOLUTION UDC 500 MG FEED TUBE (09:55)
[2023-12-18] MEDS: MUPIROCIN 2% OINT 22 GM TUBE 1 APPLIC EACH NARE (09:55)
[2023-12-18] MEDS: EUCERIN CREAM 120 GM JAR 1 APPLIC TOPICAL (09:55)
[2023-12-18] MEDS: THIAMINE HCL 100 MG TABLET FEED TUBE (09:55)
[2023-12-18] MEDS: METOPROLOL TARTRATE 25 MG TABLET FEED TUBE (10:00)
--- NOTE | 2023-12-18 10:34 | PM.PNNEP ---
Progress Note: A&P Assessment and Plan (1) Acute kidney injury: Code(s): N17.9 - Acute kidney failure, unspecified Status: Acute Assessment and Plan: The patient has suddenly high creatinine. It went from his baseline of 0.6 up to 1.9 in 1 day then 2.2, yesterday was below 2 and now is normal again. Urine electrolytes are non pre renal CK was not elevated enough to do anything. Ultrasound shows no hydro and normal kidneys Possibly hemodynamic issue. May be related to a brief episode of hypotension or hypoxia just before admission. [facility]. This by itself probably would not have much of an effect but may be additive to the above He is getting tube feedings plus tube feeding flushes. Sodium is back to normal. Okay for discharge from the kidney standpoint. Renal will sign off (2) Pneumonia: Qualifiers: Laterality: right Lung location: unspecified part of lung Pneumonia type: due to unspecified organism Qualified Code(s): J18.9 - Pneumonia, unspecified organism Code(s): J18.9 - Pneumonia, unspecified organism Status: Acute Assessment and Plan: Patient is getting antibiotics. He is also getting pulmonary toilet (3) Cerebrovascular accident: Code(s): I63.9 - Cerebral infarction, unspecified Status: Chronic Assessment and Plan: He is aphasic and non communicative. (4) Tracheostomy in place: Code(s): Z93.0 - Tracheostomy status Status: Acute Assessment and Plan: He is getting local care for this. (5) 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 Assessment and Plan: He is getting tube feed Subjective Date/time seen: 12/18/23 10:34 Interval history: patient is comfortable in bed. Some oral secretions. Exam Narrative: WDWN in NAD skin no rash Or subcu nodules head ncat lungs Mildly coarse bilaterally cor reg no rub or gallop abd BS+ nontender and soft ext trace bilat edema. Objective Data Vital Signs Vital Signs: Vital Signs - 24 hr 12/17/23 15:29 12/17/23 15:15 12/17/23 15:35 Temperature Pulse Rate 92 92 92 Respiratory Rate 22 H 22 H 20 Blood Pressure Pulse Oximetry 99 Oxygen Delivery High Flow Therapy with Tr Oxygen Flow Rate 30 Fraction of Inspired Oxygen 12/17/23 16:00 12/17/23 20:52 12/17/23 20:41 Temperature 98.0 F Pulse Rate 79 99 99 Respiratory Rate 19 20 Blood Pressure 110/58 L Pulse Oximetry 91 94 Oxygen Delivery High Flow Therapy with Tr Oxygen Flow Rate 30 Fraction of Inspired Oxygen 12/17/23 20:53 12/17/23 21:04 12/17/23 21:13 Temperature 98.5 F Pulse Rate 100 110 H 115 H Respiratory Rate 20 18 Blood Pressure 159/89 H Pulse Oximetry 92 Oxygen Delivery Oxygen Flow Rate Fraction of Inspired Oxygen 12/18/23 02:15 12/18/23 02:29 12/18/23 04:29 Temperature 97.6 F Pulse Rate 92 86 71 Respiratory Rate 20 20 20 Blood Pressure 148/85 H Pulse Oximetry 96 Oxygen Delivery Oxygen Flow Rate Fraction of Inspired Oxygen 12/18/23 07:32 12/18/23 07:32 12/18/23 07:49 Temperature Pulse Rate 86 86 88 Respiratory Rate 18 18 18 Blood Pressure Pulse Oximetry 94 Oxygen Delivery High Flow Therapy with Tr Oxygen Flow Rate 30 Fraction of Inspired Oxygen 12/18/23 10:00 Temperature Pulse Rate 90 Respiratory Rate Blood Pressure Pulse Oximetry Oxygen Delivery Oxygen Flow Rate Fraction of Inspired Oxygen Intake/Output Intake/Output: Intake & Output 12/15/23 12/16/23 12/17/23 12/18/23 23:59 23:59 23:59 23:59 Intake Total 6681 1450 450 100 Output Total 1850 2901 4600 1350 Balance 3960 -1450 -4150 -1250 Meds/Results Medications: Active Medications Generic Name Dose Route Start Last Admin Trade Name Freq PRN Reason Stop Dose Admin Albuterol/Ipratropium 3 ml 12/13/23 14:00 12/18/23 07:31 Ipratropium 0.5 Mg/Albuterol Sulfate 2.5 Mg Ampul.Neb 3 Ml INHALATION 3 ml Q6HRT TERRELL Administration Artificial Tears 1 drop 12/13/23 15:08 Artificial Tears Ophth Soln 15 Ml Bottle EACH EYE Q4-6H PRN Dry Eyes Aspirin 81 mg 12/13/23 15:15 12/18/23 09:54 Aspirin 81 Mg Chewable Tablet FEED TUBE 81 mg DAILY TERRELL Administration Atorvastatin Calcium 40 mg 12/13/23 21:00 12/17/23 21:04 Atorvastatin 40 Mg Tablet FEED TUBE 40 mg QHS TERRELL Administration Bisacodyl 10 mg 12/13/23 15:08 Bisacodyl 10 Mg Suppository RECTAL DAILY PRN Constipation Calcium Carbonate 400 mg 12/13/23 15:20 Calcium Carbonate (Tums) 500 Mg (200 Mg Elemental) FEED TUBE Q6H PRN Heartburn Clobazam 5 mg 12/13/23 21:00 12/17/23 21:03 Clobazam (*Crx) 5 Mg Tablet FEED TUBE 5 mg HS TERRELL Administration Clobazam 10 mg 12/13/23 21:00 12/17/23 21:03 Clobazam (*Crx) 10 Mg Tablet FEED TUBE 10 mg HS TERRELL Administration Dornase Zafar 2.5 mg 12/17/23 13:40 12/18/23 07:44 Dornase Zafar Inh Soln 1 Mg/Ml 2.5 Ml Amp INHALATION 2.5 mg DAILYRT TERRELL Administration Enoxaparin Sodium 40 mg 12/14/23 09:00 12/18/23 09:54 Enoxaparin 40 Mg/0.4 Ml Syringe SUB-Q 40 mg DAILY TERRELL Administration Famotidine 20 mg 12/13/23 21:00 12/18/23 09:55 Famotidine 20 Mg Tablet FEED TUBE 20 mg Q12H TERRELL Administration Folic Acid 1 mg 12/13/23 15:15 12/18/23 09:55 Folic Acid 1 Mg Tablet FEED TUBE 1 mg DAILY TERRELL Administration Guaifenesin 600 mg 12/13/23 18:00 12/18/23 05:19 Guaifenesin 200 Mg/10 Ml Udc FEED TUBE 600 mg Q6HR TERRELL Administration Piperacillin/Tazobactam/Dextrose 3.375 gm in 50 mls @ 100 mls/hr 12/13/23 18:00 12/18/23 05:57 Zosyn 3.375 Gm/Ns 50 Ml IVPB Infused Q6H TERRELL Infusion Azithromycin 500 mg in 250 mls @ 250 mls/hr 12/14/23 09:00 12/18/23 09:54 Zithromax IVPB 250 mls/hr Q24H TERRELL Administration Lacosamide 200 mg 12/13/23 21:00 12/18/23 09:55 Lacosamide (*Crx) 100 Mg Tablet FEED TUBE 200 mg Q12H TERRELL Administration Levetiracetam 2,000 mg 12/13/23 21:00 12/18/23 09:55 Levetiracetam Oral Amparo 500 Mg/5 Ml Udc FEED TUBE 2,000 mg Q12H TERRELL Administration Metoprolol Tartrate 25 mg 12/13/23 21:00 12/18/23 10:00 Metoprolol Tartrate 25 Mg Tablet FEED TUBE 25 mg Q12H TERRELL Administration Multi-Ingred Cream/Lotion/Oil/Oint 1 applic 12/14/23 09:00 12/18/23 09:55 Eucerin Cream 120 Gm Jar TOPICAL 1 applic DAILY TERRELL Administration Mupirocin 1 applic 12/13/23 14:00 12/18/23 09:55 Mupirocin 2% Oint 22 Gm Tube EACH NARE 1 applic Q12HR TERRELL Administration Polyethylene Glycol 17 gm 12/13/23 21:00 12/18/23 09:55 Polyethylene Glycol 3350 17 Gm Powd.Pack FEED TUBE 17 gm Q12H TERRELL Administration Thiamine HCl 100 mg 12/13/23 15:20 12/18/23 09:55 Thiamine Hcl 100 Mg Tablet FEED TUBE 100 mg DAILY TERRELL Administration Valproate Sodium 500 mg 12/13/23 17:00 12/18/23 09:55 Valproic Acid Liq 250 Mg/5 Ml Oral Solution Udc FEED TUBE 500 mg QID TERRELL Administration Radiology Results: ITS Impressions Chest X-Ray 12/13/23 08:45 IMPRESSION: No acute cardiopulmonary pathology. Chest CT 12/13/23 10:03 IMPRESSION: 1. Pneumonia in the right lower lobe posteriorly. Minimal effusion cannot be excluded. 2. Status post placement of tracheostomy tube. 3. Tube seen in the stomach. 4. Left kidney stones. Renal Ultrasound 12/16/23 16:44 IMPRESSION: 1. Normal kidneys without hydronephrosis. Labs Labs: Laboratory Results - last 24 hr 12/17/23 12/17/23 12/18/23 11:32 18:27 07:22 WBC 8.0 RBC 3.44 L Hgb 11.1 L Hct 34.1 L MCV 99.1 MCH 32.3 MCHC 32.6 RDW 13.5 Plt Count 213 MPV 11.5 H Sodium 145 Potassium 4.2 Chloride 111 H Carbon Dioxide 24 Anion Gap 10 BUN 16 Creatinine 1.20 Estim Creat Clear Calc 61 Estimated GFR > 60 Glucose 116 H POC Capillary Glucose 111 H 121 H Calcium 8.9 Magnesium 2.0 12/18/23 07:23 WBC RBC Hgb Hct MCV MCH MCHC RDW Plt Count MPV Sodium Potassium Chloride Carbon Dioxide Anion Gap BUN Creatinine Estim Creat Clear Calc Estimated GFR Glucose POC Capillary Glucose 118 H Calcium Magnesium
[2023-12-18 10:57] LABS: SARS-CoV-2 RNA PCR Negative (Negative)
[2023-12-18 11:48] LABS: Glucose Point of Care 130 mg/dl (65-105)
--- NOTE | 2023-12-18 13:39 | PC.NURSE ---
RN called to give nurse report at [facility]. RN spoke with Loreto and was put on hold. RN then talked to Cassie and was put on hold. RN was then set to an extension that did not answer.
[2023-12-19 19:13] LABS: Mycoplasma IgM Antibody Titer 251 U/mL
[2023-12-20 03:19] LABS: Legionella pneumophila Ag Ur NOT DETECTED
== END 2023-12-18 13:25 | DRG 137 ==
LOC: ANHED 10:40 → ANHIMU 12:45 → ANH3MEDSUR 12-16 10:24
PROVIDERS: Internal Medicine Nephrology; Physician Assistant; Admitting Provider Internal Medicine; Emergency Provider Emergency Medicine; PCP Internal Medicine; Visit Provider General Practice
DX: J69.0 Pneumonitis due to inhalation of food and vomit (principal); N17.9 Acute kidney failure, unspecified; J15.1 Pneumonia due to Pseudomonas; J15.69 Pneumonia due to other Gram-negative bacteria; J96.11 Chronic respiratory failure with hypoxia; J39.8 Other specified diseases of upper respiratory tract; G40.909 Epilepsy, unspecified, not intractable, without status epilepticus; F06.8 Other specified mental disorders due to known physiological condition; F01.50 Vascular dementia, unspecified severity, without behavioral disturbance, psychotic disturbance, mood disturbance, and anxiety; J44.0 Chronic obstructive pulmonary disease with (acute) lower respiratory infection; Z20.822 Contact with and (suspected) exposure to COVID-19; D50.9 Iron deficiency anemia, unspecified; N40.0 Benign prostatic hyperplasia without lower urinary tract symptoms; E87.0 Hyperosmolality and hypernatremia; I48.91 Unspecified atrial fibrillation; K22.5 Diverticulum of esophagus, acquired; R79.89 Other specified abnormal findings of blood chemistry; Z68.23 Body mass index [BMI] 23.0-23.9, adult; Z93.1 Gastrostomy status; Z74.01 Bed confinement status; Z79.82 Long term (current) use of aspirin; Z89.612 Acquired absence of left leg above knee; I69.354 Hemiplegia and hemiparesis following cerebral infarction affecting left non-dominant side; I69.391 Dysphagia following cerebral infarction; R13.10 Dysphagia, unspecified; I69.320 Aphasia following cerebral infarction; Z86.718 Personal history of other venous thrombosis and embolism; Z22.322 Carrier or suspected carrier of Methicillin resistant Staphylococcus aureus; Z93.0 Tracheostomy status
CPT/HCPCS: 36415; 71045; 71250; 76775; 80048; 80053; 80164; 80202; 81001; 82550; 82570; 82948; 83605; 83690; 83735; 83880; 84100; 84145; 84156; 84300; 84443; 84484; 85025; 85027; 85055; 85610; 85730; 86738; 87040; 87070; 87077; 87086; 87186; 87205; 87449; 87635; 87637; 87641; 87899; 93005; 94640; 94667; 94668; 96361; 96365; 96367; 96375; 99285; A4629; A9270; J0456; J1650; J2543; J3370; J7030; J7120

== ENCOUNTER 2023-12-20 21:19 | Emergency (ER) | payer OTHER, SELFPAY ==
--- NOTE | ~2023-12-20 | XR_ITS ---
EXAMINATION: XR abdomen gastric tube insert DATE: 12/21/2023 00:08 INDICATION: G-tube replacement TECHNIQUE: A supine view of the abdomen and lower chest was obtained for evaluation of feeding tube placement. COMPARISON: None. FINDINGS: Percutaneous gastrostomy tube extends into the body of the stomach with injected contrast opacifying the stomach and proximal small bowel. No extraluminal extravasation. No dilated loops of bowel to sug gest obstruction. IMPRESSION: 1. Percutaneous gastrostomy tube in the body of the stomach. Reviewed, dictated and finalized at location A.
[2023-12-20 20:54] VITALS: BP 152/92; PULSE 76; RESP 20; TEMP 36.4; O2SAT 100
[2023-12-20 21:01] VITALS: RESP 20; O2SAT 100
[2023-12-20 22:12] VITALS: BP 147/96; PULSE 80; RESP 18; O2SAT 98
--- NOTE | 2023-12-20 23:01 | PC.NURSE ---
This RN called Fred find out what size G tube pt needs for replacement. nelly states they do not know but will make a few calls to ask and give us a call back when they know. Dr. davenport notified and states he wants to put a 16 in for now.
[2023-12-20 23:20] VITALS: O2SAT 97
--- NOTE | 2023-12-20 23:21 | PC.NURSE ---
RN placed 16 paredes in G tube. No gastric content came through right away so chargeback specialist advised we tape it in place and allow for Dr. Hobbs to come take look at it. Dr hobbs notified.
--- NOTE | 2023-12-21 00:47 | ED.GENADULT ---
HPI - General Adult General Chief complaint: Unspecified Stated complaint: G tube fell out Time Seen by Provider: 12/20/23 22:27 History of Present Illness HPI narrative: This is a 63-year-old male with a chronic indwelling G-tube. This removed earlier today. He was sent for replacement. G-tube has a mature tract. No other complaints. Related Data Home Medications Medication Instructions Recorded Confirmed atorvastatin 40 mg tablet 40 mg feeding tube QHS 11/14/22 12/13/23 folic acid 1 mg tablet 1 mg feeding tube DAILY 11/14/22 12/13/23 lacosamide 200 mg tablet 200 mg feeding tube Q12H 11/14/22 12/13/23 aspirin 81 mg chewable tablet 81 mg feeding tube DAILY 11/15/22 12/13/23 metoprolol tartrate 25 mg tablet 25 mg feeding tube Q12H 12/18/22 12/13/23 polyethylene glycol 3350 17 17 g feeding tube Q12H 12/18/22 12/13/23 gram/dose oral powder bisacodyl 10 mg rectal suppository 10 mg RECTAL DAILY PRN Constipation 02/11/23 12/13/23 sennosides 8.6 mg tablet (senna) 8.6 mg feeding tube HS PRN 02/11/23 12/13/23 Constipation thiamine HCl (vitamin B1) 100 mg 100 mg feeding tube DAILY 02/11/23 12/13/23 tablet clobazam 10 mg tablet 15 mg feeding tube HS 03/21/23 12/13/23 famotidine 20 mg tablet 20 mg feeding tube Q12H 03/21/23 12/13/23 levetiracetam 100 mg/mL oral 2,000 mg feeding tube Q12H 03/21/23 12/13/23 solution (Keppra) peg [id number] 1 1 drp EACH EYE 4-6XD PRN Dry Eyes 03/21/23 12/13/23 %-0.2 %-0.2 % eye drops (Artificial Tears ([id number])) valproic acid (as sodium salt) 250 500 mg PO QID 03/21/23 12/13/23 mg/5 mL oral solution calcium carbonate 500 mg/5 mL (as 1,250 mg feeding tube Q6H PRN 07/08/23 12/13/23 calcium carb 1,250 mg/5 mL) oral Heartburn suspension guaifenesin 100 mg/5 mL oral liquid 600 mg feeding tube Q6HR 07/08/23 12/13/23 ipratropium 0.5 mg-albuterol 3 mg 3 ml inhalation Q4H PRN Shortness 07/08/23 12/13/23 (2.5 mg base)/3 mL nebulization Of Breath soln magnesium citrate 300 ml PO DAILY PRN Constipation 07/08/23 12/13/23 ibuprofen 200 mg tablet 600 mg feeding tube PRN 12/13/23 12/13/23 lanolin alcohols-mineral 1 applic topical DAILY 12/13/23 12/13/23 oil-w.petrolatum-ceresin topical cream (Minerin Creme topical) magnesium hydroxide 400 mg/5 mL 30 ml feeding tube PRN 12/13/23 12/13/23 oral suspension (Milk of Magnesia) Allergies Allergy/AdvReac Type Severity Reaction Status Date / Time clonazepam Allergy Unknown Unknown Verified 12/13/23 13:56 [facility] Past Medical History Medical History Benign prostatic hyperplasia Cerebrovascular accident Residual expressive aphasia, dysphagia, and left-sided weakness. Chronic obstructive pulmonary disease Deep venous thrombosis of upper extremity Esophageal diverticulum Gastroparesis Iron deficiency anemia Seizure disorder Vascular dementia with psychotic disturbance Surgical History Surgical History History of gastrostomy tube placement History of left above knee amputation History of tracheostomy Family History Family History Other Unknown family medical history Social History Social History Social History: Surrogate medical decision maker: Adriane Rodriguezlin, sibling. Code status: Full code. Smoking status: Unknown if ever smoked Alcohol intake: former Substance use: unknown Substance use type: does not use Lack of Transportation: No Lack of Food: Never True Current Housing: I Have Housing Concerned About Future Housing: No Difficulty Paying Gas/Electric Bills: No Difficulty Paying for Meds: No Currently Unemployed: No Education: Don't Know Difficulty w/ Childcare or Family Care: No Additional living arrangements comments: Massiel allen
[2023-12-21 01:40] VITALS: BP 134/75; PULSE 87; RESP 18; O2SAT 100
== END 2023-12-21 02:47 ==
PROVIDERS: Emergency Provider Emergency Medicine; PCP Internal Medicine
DX: T85.528A Displacement of other gastrointestinal prosthetic devices, implants and grafts, initial encounter (principal); J44.9 Chronic obstructive pulmonary disease, unspecified; Z79.899 Other long term (current) drug therapy; Z86.73 Personal history of transient ischemic attack (TIA), and cerebral infarction without residual deficits
CPT/HCPCS: 43762; 99283

== ENCOUNTER 2023-12-21 13:22 | Emergency (ER) | payer OTHER, SELFPAY ==
--- NOTE | ~2023-12-21 | XR_ITS ---
XR abdomen gastric tube rechec 12/21/2023 17:24 Indication: Gastric tube recheck Procedure: AP view of the abdomen Comparison: 07/28/2023 Findings: Bowel gas pattern nonobstructive. Residual contrast in the stomach, small bowel and colon. No extravasation of contrast identified. There is a catheter with the tip overlying the stomach. Impression: 1: Percutaneous gastrostomy tube in the body of the stomach. Reviewed, dictated and finalized at location B. Impression: 1: Percutaneous gastrostomy tube in the body of the stomach.
[2023-12-21 13:17] VITALS: BP 169/88; PULSE 79; RESP 16; TEMP 36.8; O2SAT 98
[2023-12-21 14:40] VITALS: BP 158/91; PULSE 81; RESP 16; O2SAT 100
--- NOTE | 2023-12-21 17:43 | PC.NURSE ---
Updated LaBella on patient status and returning to facility, gave report to science manager.
--- NOTE | 2023-12-21 17:47 | ED.RECABL ---
HPI - Recheck/Abnormal Lab/Rx General Chief Complaint: Recheck/Abnormal Lab/Rx Stated Complaint: pulled out g-tube Time Seen by Provider: 12/21/23 16:07 History of Present Illness HPI narrative: This is a 63-year-old male with a chronic indwelling G-tube. Patient was seen earlier this morning for accidentally removing his G-tube. Patient is well known to this department has had similar presentations in the past. Patient was sent in from his [facility] facility for replacement. The patient has immature G trach tube with no other complaints. Patient has a chronic tracheostomy that this not require frequent suctioning and he is awake and answering questions. Related Data Home Medications Medication Instructions Recorded Confirmed atorvastatin 40 mg tablet 40 mg feeding tube QHS 11/14/22 12/13/23 folic acid 1 mg tablet 1 mg feeding tube DAILY 11/14/22 12/13/23 lacosamide 200 mg tablet 200 mg feeding tube Q12H 11/14/22 12/13/23 aspirin 81 mg chewable tablet 81 mg feeding tube DAILY 11/15/22 12/13/23 metoprolol tartrate 25 mg tablet 25 mg feeding tube Q12H 12/18/22 12/13/23 polyethylene glycol 3350 17 17 g feeding tube Q12H 12/18/22 12/13/23 gram/dose oral powder bisacodyl 10 mg rectal suppository 10 mg RECTAL DAILY PRN Constipation 02/11/23 12/13/23 sennosides 8.6 mg tablet (senna) 8.6 mg feeding tube HS PRN 02/11/23 12/13/23 Constipation thiamine HCl (vitamin B1) 100 mg 100 mg feeding tube DAILY 02/11/23 12/13/23 tablet clobazam 10 mg tablet 15 mg feeding tube HS 03/21/23 12/13/23 famotidine 20 mg tablet 20 mg feeding tube Q12H 03/21/23 12/13/23 levetiracetam 100 mg/mL oral 2,000 mg feeding tube Q12H 03/21/23 12/13/23 solution (Keppra) peg [id number] 1 1 drp EACH EYE 4-6XD PRN Dry Eyes 03/21/23 12/13/23 %-0.2 %-0.2 % eye drops (Artificial Tears ([id number])) valproic acid (as sodium salt) 250 500 mg PO QID 03/21/23 12/13/23 mg/5 mL oral solution calcium carbonate 500 mg/5 mL (as 1,250 mg feeding tube Q6H PRN 07/08/23 12/13/23 calcium carb 1,250 mg/5 mL) oral Heartburn suspension guaifenesin 100 mg/5 mL oral liquid 600 mg feeding tube Q6HR 07/08/23 12/13/23 ipratropium 0.5 mg-albuterol 3 mg 3 ml inhalation Q4H PRN Shortness 07/08/23 12/13/23 (2.5 mg base)/3 mL nebulization Of Breath soln magnesium citrate 300 ml PO DAILY PRN Constipation 07/08/23 12/13/23 ibuprofen 200 mg tablet 600 mg feeding tube PRN 12/13/23 12/13/23 lanolin alcohols-mineral 1 applic topical DAILY 12/13/23 12/13/23 oil-w.petrolatum-ceresin topical cream (Minerin Creme topical) magnesium hydroxide 400 mg/5 mL 30 ml feeding tube PRN 12/13/23 12/13/23 oral suspension (Milk of Magnesia) Allergies Allergy/AdvReac Type Severity Reaction Status Date / Time clonazepam Allergy Unknown Unknown Verified 12/21/23 13:24 Review of Systems Review of Systems: As above in HPI otherwise negative PMFSH Past Medical History Medical History Benign prostatic hyperplasia Cerebrovascular accident Residual expressive aphasia, dysphagia, and left-sided weakness. Chronic obstructive pulmonary disease Deep venous thrombosis of upper extremity Esophageal diverticulum Gastroparesis Iron deficiency anemia Seizure disorder Vascular dementia with psychotic disturbance Surgical History Surgical History History of gastrostomy tube placement History of left above knee amputation History of tracheostomy Family History Family History Other Unknown family medical history Social History Social History Social History: Surrogate medical decision maker: Adriane Hilliard, sibling. Code status: Full code. Smoking status: Unknown if ever smoked Alcohol intake: f
[2023-12-21 17:50] VITALS: BP 167/79; PULSE 73; RESP 16; O2SAT 98
== END 2023-12-21 19:04 ==
PROVIDERS: Emergency Provider Student in an Organized Health Care Education/Training Program; PCP Internal Medicine
DX: Z43.1 Encounter for attention to gastrostomy (principal); I69.920 Aphasia following unspecified cerebrovascular disease; I69.991 Dysphagia following unspecified cerebrovascular disease; I69.954 Hemiplegia and hemiparesis following unspecified cerebrovascular disease affecting left non-dominant side; R13.10 Dysphagia, unspecified; F01.52 Vascular dementia, unspecified severity, with psychotic disturbance; G40.909 Epilepsy, unspecified, not intractable, without status epilepticus; J44.9 Chronic obstructive pulmonary disease, unspecified; N40.0 Benign prostatic hyperplasia without lower urinary tract symptoms; D50.9 Iron deficiency anemia, unspecified; Z93.0 Tracheostomy status; Z86.718 Personal history of other venous thrombosis and embolism; Z79.82 Long term (current) use of aspirin; Z79.899 Other long term (current) drug therapy; Z89.612 Acquired absence of left leg above knee
CPT/HCPCS: 43762; 99283

== ENCOUNTER 2023-12-23 11:18 | Emergency (ER) | payer OTHER, SELFPAY ==
[2023-12-23] VITALS (29 sets, daily range): BP systolic 147–200; BP diastolic 85–126; PULSE 84–104; RESP 13–27; TEMP 36.7; O2SAT 94–100
--- NOTE | ~2023-12-23 | CT_ITS ---
CT abdomen pelvis w con Ordering provider: Yan Daily MD History: 63 years Male with . abd distention s/p g-tube insertion. . Comparison: December 05, 2023 Technique: CT abdomen and pelvis with IV and without oral contrast. Automated exposure control and it erative reconstruction technique were employed. The dose-length product was 530.95 mGy-cm. 100 mL Omn ipaque 350 was given IV. Findings: VISUALIZED LOWER CHEST: Bilateral dependent atelectatic changes. Early pneumonia in the right lung ba se is not excluded. UPPER ABDOMINAL ORGANS: Liver: Normal. Gallbladder: Normal. Spleen: Normal. Stomach/duodenum: Gastrostomy is noted. Sliding hiatus hernia with thickened lower esophagus which ma y indicate reflux esophagitis but mass cannot be excluded.. Pancreas: Prominent pancreatic duct. Follow-up advised. Adrenals: Normal. Kidneys: Tiny Stone seen bilaterally in the left upper pole and right mid pole. PELVIC ORGANS: Jensen's catheter is seen in the bladder. BOWEL AND MESENTERY: Colon: No evidence of diverticulitis. Contrast seen in the large bowel. The colon is distended with a ir. Appendix is not demonstrated. Small Bowel: Normal. No obstruction. Peritoneum/mesentery: No free air or free fluid. No mesenteric lymphadenopathy. RETROPERITONEUM: Mild atheromatous disease of the abdominal aorta. No retroperitoneal lymphadenopat hy. MUSCULOSKELETAL: Superficial soft tissues: The superficial soft tissues are normal. Bones: Age appropriate degenerative changes of the spine. IMPRESSION: 1. Status post gastrostomy with no evidence of free air or fluid in the abdomen. 2. Sliding hiatus hernia with thickened lower esophagus highly suggestive of reflux esophagitis. Mas s in the area cannot be excluded. Further evaluation advised. 3. Bilateral kidney stones. Reviewed, dictated and finalized at location A. IMPRESSION: 1. Status post gastrostomy with no evidence of free air or fluid in the abdome n. 2. Sliding hiatus hernia with thickened lower esophagus highly suggestive of r eflux esophagitis. Mass in the area cannot be excluded. Further evaluation advi sed. 3. Bilateral kidney stones.
[2023-12-23 12:03] LABS: Basophils Percent Auto 0.4 % (0.2-1.2); Eosinophils Absolute Auto 0.5 K/mm3 (0-0.3); Eosinophils Percent Auto 4.3 % (0-4.4); Hemoglobin 12.6 g/dL (14.0-18.0); Immature Granulocyte Absolute 0.03 K/mm3 (0.00-0.031); Immature Granulocyte Percent A 0.3 % (0-0.5); Lymphocytes Absolute Auto 3.06 K/mm3 (0.9-3.2); Lymphocytes Percent Auto 27.3 % (18.3-44.2); Mean Corpuscular HGB Conc 31.5 g/dl (32-36); Mean Corpuscular Hemoglobin 31.4 pg (26-34); Mean Corpuscular Volume 99.8 fl (80-100); Mean Platelet Volume 12.4 fl (7.4-10.4); Monocytes Absolute Auto 0.9 K/mm3 (0.1-0.6); Monocytes Percent Auto 7.6 % (2.6-8.5); Neutrophils Absolute Auto 6.8 K/mm3 (1.3-6.7); Neutrophils Percent Auto 60.1 % (45.5-73.1); Platelet Count Result 253 k/mm3 (150-375); Red Blood Count 4.01 M/mm3 (4.6-6.20); Red Cell Distribution Width 13.2 % (11.5-14.5); White Blood Count 11.2 K/mm3 (4.5-10.0)
[2023-12-23 12:24] LABS: Alanine Aminotransferase 24 U/L (6-50); Alkaline Phosphatase 107 U/L (38-126); Anion Gap 9 mmol/L (4-12); Aspartate Amino Transferase 32 U/L (17-59); Bilirubin,Total 0.3 mg/dL (0.2-1.3); Blood Urea Nitrogen 24 mg/dL (9-20); Calcium 9.2 mg/dL (8.4-10.2); Carbon Dioxide 28 mmol/L (22-30); Chloride 107 mmol/L (98-107); Estimated CRCL calculation 87 ml/min; Estimated Glomerular Filt Rate > 60; Glucose 104 mg/dL (65-110); Lipase 87 U/L (23-300); Potassium 4.2 mmol/L (3.4-5.0); Sodium 144 mmol/L (137-145)
--- NOTE | 2023-12-23 12:36 | ED.ABDPAIN ---
HPI - Abdominal Pain General Chief Complaint: Abdominal Pain Stated Complaint: ABD DISTENTION Time Seen by Provider: 12/23/23 11:58 History of Present Illness HPI narrative: This is a 63-year-old male with a past medical history including chronic indwelling G-tube and trach dependent respiratory failure. Patient presents to the ED today for worsening abdominal distension. Patient had a G-tube inserted by myself several days prior which was confirmed on x-ray images to be inside the body of the stomach without any contrast extravasation. Patient did state he had a bowel movement earlier today and has no abdominal pain, nausea, vomiting. He appears well in not any distress. His facility sent him in for mastication of his abdominal distention. Patient otherwise appears well and has his normal state of health. Related Data Home Medications Medication Instructions Recorded Confirmed atorvastatin 40 mg tablet 40 mg feeding tube QHS 11/14/22 12/13/23 folic acid 1 mg tablet 1 mg feeding tube DAILY 11/14/22 12/13/23 lacosamide 200 mg tablet 200 mg feeding tube Q12H 11/14/22 12/13/23 aspirin 81 mg chewable tablet 81 mg feeding tube DAILY 11/15/22 12/13/23 metoprolol tartrate 25 mg tablet 25 mg feeding tube Q12H 12/18/22 12/13/23 polyethylene glycol 3350 17 17 g feeding tube Q12H 12/18/22 12/13/23 gram/dose oral powder bisacodyl 10 mg rectal suppository 10 mg RECTAL DAILY PRN Constipation 02/11/23 12/13/23 sennosides 8.6 mg tablet (senna) 8.6 mg feeding tube HS PRN 02/11/23 12/13/23 Constipation thiamine HCl (vitamin B1) 100 mg 100 mg feeding tube DAILY 02/11/23 12/13/23 tablet clobazam 10 mg tablet 15 mg feeding tube HS 03/21/23 12/13/23 famotidine 20 mg tablet 20 mg feeding tube Q12H 03/21/23 12/13/23 levetiracetam 100 mg/mL oral 2,000 mg feeding tube Q12H 03/21/23 12/13/23 solution (Keppra) peg [id number] 1 1 drp EACH EYE 4-6XD PRN Dry Eyes 03/21/23 12/13/23 %-0.2 %-0.2 % eye drops (Artificial Tears ([id number])) valproic acid (as sodium salt) 250 500 mg PO QID 03/21/23 12/13/23 mg/5 mL oral solution calcium carbonate 500 mg/5 mL (as 1,250 mg feeding tube Q6H PRN 07/08/23 12/13/23 calcium carb 1,250 mg/5 mL) oral Heartburn suspension guaifenesin 100 mg/5 mL oral liquid 600 mg feeding tube Q6HR 07/08/23 12/13/23 ipratropium 0.5 mg-albuterol 3 mg 3 ml inhalation Q4H PRN Shortness 07/08/23 12/13/23 (2.5 mg base)/3 mL nebulization Of Breath soln magnesium citrate 300 ml PO DAILY PRN Constipation 07/08/23 12/13/23 ibuprofen 200 mg tablet 600 mg feeding tube PRN 12/13/23 12/13/23 lanolin alcohols-mineral 1 applic topical DAILY 12/13/23 12/13/23 oil-w.petrolatum-ceresin topical cream (Minerin Creme topical) magnesium hydroxide 400 mg/5 mL 30 ml feeding tube PRN 12/13/23 12/13/23 oral suspension (Milk of Magnesia) Allergies Allergy/AdvReac Type Severity Reaction Status Date / Time clonazepam Allergy Unknown Unknown Verified 12/23/23 11:27 Review of Systems Review of Systems: ROS as described above [facility] Past Medical History Medical History Benign prostatic hyperplasia Cerebrovascular accident Residual expressive aphasia, dysphagia, and left-sided weakness. Chronic obstructive pulmonary disease Deep venous thrombosis of upper extremity Esophageal diverticulum Gastroparesis Iron deficiency anemia Seizure disorder Vascular dementia with psychotic disturbance Surgical History Surgical History History of gastrostomy tube placement History of left above knee amputation History of tracheostomy Family History Family History Other Unknown family medical history Social History Social History Social History: [place]
--- NOTE | 2023-12-23 13:24 | PC.NURSE ---
patient paredes exchanged at this time for urine sample to be obtained
[2023-12-23 13:49] LABS: Appearance Urine Clear (Clear); Bacteria Urine None Seen /hpf; Bilirubin Urine Negative (Negative); Blood Urine 3+ (Negative); Color Urine Yellow (Yellow); Glucose Urine UA Negative (Negative); Ketones Urine Negative (Negative); Leukocyte Esterase Ur Negative LEU/UL (Negative); Need Manual Microscopic Reviewed; Nitrate Urine Negative (Negative); Non Pathogenic Casts 0-2; Protein Urine 1+ mg/dL (Negative); RBC Urine >100 /hpf (0-2); Specific Grav Ur > 1.045 (1.001-1.035); Squamous Epithelial Cell Urine None Seen /hpf (Few); Urobilinogen Urine 0.2 mg/dL (<2.0); WBC Urine 21-50 /hpf (0-3)
[2023-12-23 14:12] LABS: Add Urine Microscopic? YES
[2023-12-23] MEDS: LACTATED RINGERS 1,000 ML 999 ML IV CONT (14:57)
[2023-12-23] MEDS: levoFLOXacin 750 MG TABLET PO (15:27)
--- NOTE | 2023-12-23 15:52 | PC.NURSE ---
Attempted to call report to Massiel Begum and RN did not answer at this time.
== END 2023-12-23 16:33 | disposition home or self-care (01) ==
PROVIDERS: Emergency Medicine; Emergency Provider Student in an Organized Health Care Education/Training Program; PCP Internal Medicine
DX: N39.0 Urinary tract infection, site not specified (principal); K59.00 Constipation, unspecified; R14.0 Abdominal distension (gaseous); Z93.1 Gastrostomy status; I69.920 Aphasia following unspecified cerebrovascular disease; I69.991 Dysphagia following unspecified cerebrovascular disease; I69.954 Hemiplegia and hemiparesis following unspecified cerebrovascular disease affecting left non-dominant side; R13.10 Dysphagia, unspecified; F01.52 Vascular dementia, unspecified severity, with psychotic disturbance; G40.909 Epilepsy, unspecified, not intractable, without status epilepticus; J44.9 Chronic obstructive pulmonary disease, unspecified; N40.0 Benign prostatic hyperplasia without lower urinary tract symptoms; D50.9 Iron deficiency anemia, unspecified; Z93.0 Tracheostomy status; Z86.718 Personal history of other venous thrombosis and embolism; Z89.612 Acquired absence of left leg above knee; Z79.82 Long term (current) use of aspirin; Z79.899 Other long term (current) drug therapy; N20.0 Calculus of kidney; K44.9 Diaphragmatic hernia without obstruction or gangrene
CPT/HCPCS: 36415; 74177; 80053; 81001; 83690; 85025; 87086; 96360; 99284; A9270; J7120; Q9967

== ENCOUNTER 2023-12-27 21:42 | Emergency (ER) | payer OTHER, SELFPAY ==
--- NOTE | ~2023-12-27 | XR_ITS ---
EXAMINATION: XR chest 1V, XR soft tissue neck DATE: 12/27/2023 23:40 INDICATION: Tracheostomy tube replacement TECHNIQUE: 1. Frontal view of the chest was obtained. 2. AP and lateral views of the soft tissue neck were obtained. COMPARISON: Chest radiograph and CT dated 12/13/2023 FINDINGS: NECK: Tracheostomy tube in expected position at the thoracic inlet. Cervical soft tissues appear unremarkab le with patent airway, normal epiglottis and normal prevertebral soft tissues. Moderate cervical spon dylosis. CHEST: Lungs are clear with no focal airspace opacities, pulmonary edema, pleural effusion or pneumothorax. Cardiomediastinal silhouette is within normal limits for AP technique with prominent bilateral perica rdial fat pads. Heterotopic ossification along the right coracoclavicular ligament consistent with ol d IMPRESSION: 1. Tracheostomy tube at the thoracic inlet. No acute cardiopulmonary disease. Reviewed, dictated and finalized at location A. IMPRESSION: 1. Tracheostomy tube at the thoracic inlet. No acute cardiopulmonary disease.
[2023-12-27 21:44] VITALS: BP 130/82; PULSE 80; RESP 17; TEMP 36.6; O2SAT 98
[2023-12-27 21:50] VITALS: BP 130/82; PULSE 84; RESP 17; TEMP 36.6; O2SAT 98
[2023-12-27 22:47] VITALS: BP 145/80; PULSE 88; RESP 17; O2SAT 99
--- NOTE | 2023-12-27 23:22 | ED.GENADULT ---
HPI - General Adult General Chief complaint: Unspecified Stated complaint: MOUTH/THROAT PAIN AFTER TRACH REINSERTED Time Seen by Provider: 12/27/23 22:53 Source: patient Limitations: physical limitation History of Present Illness HPI narrative: Patient is a 63-year-old male presents to the emergency department from the [facility] after EMS was called for a disc/trach in EMS replace the trach and determined that the patient wanted to come to the ED for some possible discomfort. Patient denies any current complaints at this time, as answering my questions with yes or no responses by giving me a thumbs up or thumbs down. Patient denies any difficulty breathing, chest pain, changes in sputum production, abdominal pain, numbness, weakness, recent injuries, recent illness. Patient is unable to tell me as to how the trach got dislodged. Related Data Home Medications Medication Instructions Recorded Confirmed atorvastatin 40 mg tablet 40 mg feeding tube QHS 11/14/22 12/13/23 folic acid 1 mg tablet 1 mg feeding tube DAILY 11/14/22 12/13/23 lacosamide 200 mg tablet 200 mg feeding tube Q12H 11/14/22 12/13/23 aspirin 81 mg chewable tablet 81 mg feeding tube DAILY 11/15/22 12/13/23 metoprolol tartrate 25 mg tablet 25 mg feeding tube Q12H 12/18/22 12/13/23 polyethylene glycol 3350 17 17 g feeding tube Q12H 12/18/22 12/13/23 gram/dose oral powder bisacodyl 10 mg rectal suppository 10 mg RECTAL DAILY PRN Constipation 02/11/23 12/13/23 sennosides 8.6 mg tablet (senna) 8.6 mg feeding tube HS PRN 02/11/23 12/13/23 Constipation thiamine HCl (vitamin B1) 100 mg 100 mg feeding tube DAILY 02/11/23 12/13/23 tablet clobazam 10 mg tablet 15 mg feeding tube HS 03/21/23 12/13/23 famotidine 20 mg tablet 20 mg feeding tube Q12H 03/21/23 12/13/23 levetiracetam 100 mg/mL oral 2,000 mg feeding tube Q12H 03/21/23 12/13/23 solution (Keppra) peg [id number] 1 1 drp EACH EYE 4-6XD PRN Dry Eyes 03/21/23 12/13/23 %-0.2 %-0.2 % eye drops (Artificial Tears ([id number])) valproic acid (as sodium salt) 250 500 mg PO QID 03/21/23 12/13/23 mg/5 mL oral solution calcium carbonate 500 mg/5 mL (as 1,250 mg feeding tube Q6H PRN 07/08/23 12/13/23 calcium carb 1,250 mg/5 mL) oral Heartburn suspension guaifenesin 100 mg/5 mL oral liquid 600 mg feeding tube Q6HR 07/08/23 12/13/23 ipratropium 0.5 mg-albuterol 3 mg 3 ml inhalation Q4H PRN Shortness 07/08/23 12/13/23 (2.5 mg base)/3 mL nebulization Of Breath soln magnesium citrate 300 ml PO DAILY PRN Constipation 07/08/23 12/13/23 ibuprofen 200 mg tablet 600 mg feeding tube PRN 12/13/23 12/13/23 lanolin alcohols-mineral 1 applic topical DAILY 12/13/23 12/13/23 oil-w.petrolatum-ceresin topical cream (Minerin Creme topical) magnesium hydroxide 400 mg/5 mL 30 ml feeding tube PRN 12/13/23 12/13/23 oral suspension (Milk of Magnesia) Allergies Allergy/AdvReac Type Severity Reaction Status Date / Time clonazepam Allergy Unknown Unknown Verified 12/23/23 11:27 Review of Systems Review of Systems: A 10 system review of systems was completed on the patient and is negative except for what is stated in the HPI. Nursing and ancillary documentation was reviewed. [facility] Past Medical History Medical History Benign prostatic hyperplasia Cerebrovascular accident Residual expressive aphasia, dysphagia, and left-sided weakness. Chronic obstructive pulmonary disease Deep venous thrombosis of upper extremity Esophageal diverticulum Gastroparesis Iron deficiency anemia Seizure disorder Vascular dementia with psychotic disturbance Surgical History Surgical History History of gastrostomy tube placement History of left above knee amputation History of tracheostomy Family History Family History Othe
--- NOTE | 2023-12-28 00:20 | PC.NURSE ---
This RN unsuccessfully attempted to call report to [facility].
== END 2023-12-28 00:40 ==
PROVIDERS: Emergency Provider Student in an Organized Health Care Education/Training Program; PCP Internal Medicine
DX: Z43.0 Encounter for attention to tracheostomy (principal); I69.920 Aphasia following unspecified cerebrovascular disease; I69.991 Dysphagia following unspecified cerebrovascular disease; I69.954 Hemiplegia and hemiparesis following unspecified cerebrovascular disease affecting left non-dominant side; J44.9 Chronic obstructive pulmonary disease, unspecified; G40.909 Epilepsy, unspecified, not intractable, without status epilepticus; F01.52 Vascular dementia, unspecified severity, with psychotic disturbance; D50.9 Iron deficiency anemia, unspecified; N40.0 Benign prostatic hyperplasia without lower urinary tract symptoms; Z93.1 Gastrostomy status; Z86.718 Personal history of other venous thrombosis and embolism; Z89.612 Acquired absence of left leg above knee; Z79.899 Other long term (current) drug therapy; Z79.82 Long term (current) use of aspirin
CPT/HCPCS: 70360; 71045; 99283

== ENCOUNTER 2023-12-30 04:57 | Emergency (ER) | payer OTHER, SELFPAY ==
[2023-12-30] VITALS (8 sets, daily range): BP systolic 103–147; BP diastolic 77–97; PULSE 90–110; RESP 16–20; TEMP 36.3–36.7; O2SAT 96–100
--- NOTE | ~2023-12-30 | CT_ITS ---
EXAMINATION: CT abdomen pelvis w con DATE: 12/30/2023 08:54 INDICATION: Nausea and vomiting. Abdominal pain. TECHNIQUE: Computed tomography (CT) of the abdomen and pelvis was performed with 100 mL Omnipaque 350 intravenous contrast. Automated exposure control and iterative reconstruction technique were employe d. The dose-length product was 694.59 mGy-cm. COMPARISON: CT abdomen and pelvis 12/23/2023, 08/20/2023 FINDINGS: The visualized portions of the lung bases demonstrate airspace opacities in right lower lob e. There is mild atelectasis in left lower lobe. There is mucous plugging in right lower lobe. There is wall thickening of the esophagus. The heart size is normal. No pericardial effusion. The liver, sp claire, gallbladder, pancreas, adrenal glands, and kidneys are normal. There is a gastrostomy tube in e xpected position. The prostate is moderately enlarged. There is a Jensen catheter in expected position . There are no dilated loops of bowel. The appendix is normal. There is calcified atherosclerosis of the aorta and many of the other arteries. There are no pathologically enlarged lymph nodes. There is no free intraperitoneal fluid. There is a 9 mm, sclerotic lesion in right parasymphyseal pubis. There is moderate lumbar spondylosis. IMPRESSION: 1. Wall thickening of the esophagus, likely esophagitis. 2. Mucous plugging in right lung lower lobe. Airspace opacities in right lung lower lobe may be atele ctasis or less likely pneumonia. 3. 9 mm sclerotic lesion in right parasymphyseal pubis, stable from 08/20/2023. This finding may be be nign or less likely metastatic disease. Consider bone scan. Reviewed, dictated and finalized at location A. IMPRESSION: 1. Wall thickening of the esophagus, likely esophagitis. 2. Mucous plugging in right lung lower lobe. Airspace opacities in right lung l ower lobe may be atelectasis or less likely pneumonia. 3. 9 mm sclerotic lesion in right parasymphyseal pubis, stable from 08/20/2023. This finding may be benign or less likely metastatic disease. Consider bone sca n.
--- NOTE | 2023-12-30 05:06 | PC.NURSE ---
EMS reports that patient is always on 15 LPM of supplemental oxygen via tracheostomy.
[2023-12-30 07:47] LABS: Basophils Percent Auto 0.1 % (0.2-1.2); Eosinophils Absolute Auto 0.3 K/mm3 (0-0.3); Eosinophils Percent Auto 1.9 % (0-4.4); Hematocrit 42.6 % (42.0-52.0); Hemoglobin 14.1 g/dL (14.0-18.0); Immature Granulocyte Absolute 0.04 K/mm3 (0.00-0.031); Immature Granulocyte Percent A 0.3 % (0-0.5); Immature Platelet Fraction Pct 16.4 % (0.9-11.2); Lymphocytes Absolute Auto 2.83 K/mm3 (0.9-3.2); Lymphocytes Percent Auto 19.1 % (18.3-44.2); Mean Corpuscular HGB Conc 33.1 g/dl (32-36); Mean Corpuscular Hemoglobin 32.7 pg (26-34); Mean Corpuscular Volume 98.8 fl (80-100); Mean Platelet Volume 13.3 fl (7.4-10.4); Monocytes Percent Auto 6.5 % (2.6-8.5); Neutrophils Absolute Auto 10.7 K/mm3 (1.3-6.7); Neutrophils Percent Auto 72.1 % (45.5-73.1); Platelet Count Result 151 k/mm3 (150-375); Red Blood Count 4.31 M/mm3 (4.6-6.20); Red Cell Distribution Width 13.9 % (11.5-14.5); White Blood Count 14.8 K/mm3 (4.5-10.0)
[2023-12-30 08:03] LABS: Alanine Aminotransferase 17 U/L (6-50); Alkaline Phosphatase 115 U/L (38-126); Anion Gap 7 mmol/L (4-12); Aspartate Amino Transferase 26 U/L (17-59); Bilirubin,Total 0.6 mg/dL (0.2-1.3); Blood Urea Nitrogen 17 mg/dL (9-20); Calcium 9.5 mg/dL (8.4-10.2); Carbon Dioxide 32 mmol/L (22-30); Chloride 99 mmol/L (98-107); Estimated CRCL calculation 79 ml/min; Estimated Glomerular Filt Rate > 60; Glucose 101 mg/dL (65-110); Lipase 62 U/L (23-300); Potassium 4.3 mmol/L (3.4-5.0); Sodium 138 mmol/L (137-145)
[2023-12-30] MEDS: SODIUM CHLORIDE 0.9% IV 1,000 ML 999 ML IV CONT (08:10)
[2023-12-30] MEDS: ONDANSETRON INJ 4 MG/2 ML VIAL IV PUSH (08:11)
--- NOTE | 2023-12-30 08:58 | ED.NAVMDI ---
HPI - Nausea/Vomiting/Diarrhea General Chief complaint: Nausea/Vomiting/Diarrhea Stated complaint: VOMITING S/P G-TUBE FEEDINGS Time Seen by Provider: 12/30/23 07:05 History of Present Illness HPI Narrative: Patient is a 63-year-old male who presents ER after having an episode of emesis after receiving a tube feed. Patient has a trach, eg tube, and a Jensen catheter. He can communicate by shaking his head and now being words. Reports he had some mild discomfort in his abdomen earlier in still feels nauseous. No difficulty breathing. No additional concerns. Related Data Home Medications Medication Instructions Recorded Confirmed atorvastatin 40 mg tablet 40 mg feeding tube QHS 11/14/22 12/13/23 folic acid 1 mg tablet 1 mg feeding tube DAILY 11/14/22 12/13/23 lacosamide 200 mg tablet 200 mg feeding tube Q12H 11/14/22 12/13/23 aspirin 81 mg chewable tablet 81 mg feeding tube DAILY 11/15/22 12/13/23 metoprolol tartrate 25 mg tablet 25 mg feeding tube Q12H 12/18/22 12/13/23 polyethylene glycol 3350 17 17 g feeding tube Q12H 12/18/22 12/13/23 gram/dose oral powder bisacodyl 10 mg rectal suppository 10 mg RECTAL DAILY PRN Constipation 02/11/23 12/13/23 sennosides 8.6 mg tablet (senna) 8.6 mg feeding tube HS PRN 02/11/23 12/13/23 Constipation thiamine HCl (vitamin B1) 100 mg 100 mg feeding tube DAILY 02/11/23 12/13/23 tablet clobazam 10 mg tablet 15 mg feeding tube HS 03/21/23 12/13/23 famotidine 20 mg tablet 20 mg feeding tube Q12H 03/21/23 12/13/23 levetiracetam 100 mg/mL oral 2,000 mg feeding tube Q12H 03/21/23 12/13/23 solution (Keppra) peg [id number] 1 1 drp EACH EYE 4-6XD PRN Dry Eyes 03/21/23 12/13/23 %-0.2 %-0.2 % eye drops (Artificial Tears ([id number])) valproic acid (as sodium salt) 250 500 mg PO QID 03/21/23 12/13/23 mg/5 mL oral solution calcium carbonate 500 mg/5 mL (as 1,250 mg feeding tube Q6H PRN 07/08/23 12/13/23 calcium carb 1,250 mg/5 mL) oral Heartburn suspension guaifenesin 100 mg/5 mL oral liquid 600 mg feeding tube Q6HR 07/08/23 12/13/23 ipratropium 0.5 mg-albuterol 3 mg 3 ml inhalation Q4H PRN Shortness 07/08/23 12/13/23 (2.5 mg base)/3 mL nebulization Of Breath soln magnesium citrate 300 ml PO DAILY PRN Constipation 07/08/23 12/13/23 ibuprofen 200 mg tablet 600 mg feeding tube PRN 12/13/23 12/13/23 lanolin alcohols-mineral 1 applic topical DAILY 12/13/23 12/13/23 oil-w.petrolatum-ceresin topical cream (Minerin Creme topical) magnesium hydroxide 400 mg/5 mL 30 ml feeding tube PRN 12/13/23 12/13/23 oral suspension (Milk of Magnesia) Allergies Allergy/AdvReac Type Severity Reaction Status Date / Time clonazepam Allergy Unknown Unknown Verified 12/23/23 11:27 Review of Systems Review of Systems: ROS unobtainable: Yes unobtainable due to medical condition PMFSH Past Medical History Medical History Benign prostatic hyperplasia Cerebrovascular accident Residual expressive aphasia, dysphagia, and left-sided weakness. Chronic obstructive pulmonary disease Deep venous thrombosis of upper extremity Esophageal diverticulum Gastroparesis Iron deficiency anemia Seizure disorder Vascular dementia with psychotic disturbance Surgical History Surgical History History of gastrostomy tube placement History of left above knee amputation History of tracheostomy Family History Family History Other Unknown family medical history Social History Social History Social History: Surrogate medical decision maker: Adriane Hilliard, sibling. Code status: Full code. Smoking status: Unknown if ever smoked Alcohol intake: former Substance use: unknown Substance use type: does not use Lack of Transport
[2023-12-30] MEDS: PANTOPRAZOLE SODIUM IV 40 MG VIAL IV PUSH (10:07)
== END 2023-12-30 11:35 ==
PROVIDERS: Emergency Provider Emergency Medicine; PCP Internal Medicine
DX: K20.90 Esophagitis, unspecified without bleeding (principal); M89.9 Disorder of bone, unspecified; I69.920 Aphasia following unspecified cerebrovascular disease; I69.991 Dysphagia following unspecified cerebrovascular disease; I69.954 Hemiplegia and hemiparesis following unspecified cerebrovascular disease affecting left non-dominant side; J44.9 Chronic obstructive pulmonary disease, unspecified; G40.909 Epilepsy, unspecified, not intractable, without status epilepticus; F01.52 Vascular dementia, unspecified severity, with psychotic disturbance; D50.9 Iron deficiency anemia, unspecified; N40.0 Benign prostatic hyperplasia without lower urinary tract symptoms; Z93.1 Gastrostomy status; Z93.0 Tracheostomy status; Z86.718 Personal history of other venous thrombosis and embolism; Z89.612 Acquired absence of left leg above knee; Z79.899 Other long term (current) drug therapy; Z79.82 Long term (current) use of aspirin; R91.8 Other nonspecific abnormal finding of lung field
CPT/HCPCS: 36415; 74177; 80053; 83690; 85025; 85055; 96361; 96374; 96375; 99284; J2405; J2470; J7030; Q9967

== ENCOUNTER 2024-01-02 02:57 | Inpatient (IN) | payer OTHER, SELFPAY ==
[2024-01-02] VITALS (24 sets, daily range): BP systolic 92–149; BP diastolic 65–88; PULSE 102–124; RESP 18–27; TEMP 35.5–37.6; O2SAT 91–100; BMI 21.4
--- NOTE | ~2024-01-02 | XR_ITS ---
Portable chest x-ray Comparison: 12/27/2023 Clinical History: Shortness of breath Findings: Tracheostomy catheter present. Small right pleural effusion present. There is mild bibasil ar haziness. Cardiomediastinal silhouette is stable. Bones and soft tissues are unremarkable. Impression: Small right pleural effusion with probable right basilar atelectasis and possible minimal bibasilar p ulmonary edema. Tracheostomy cannula. Reviewed, dictated and finalized at location M. Impression: Small right pleural effusion with probable right basilar atelectasis and possib le minimal bibasilar pulmonary edema. Tracheostomy cannula.
--- NOTE | ~2024-01-02 | XR_ITS ---
EXAMINATION: XR chest PICC line DATE: 01/07/2024 13:55 INDICATION: Central line placement. TECHNIQUE: A single frontal view of the chest was obtained. COMPARISON: Chest single view 01/02/2024 FINDINGS: There is a small right pleural effusion. There are airspace opacities in right mid and lowe r lung zones and left lower lung zone. No pneumothorax. The heart size is normal. There is a tracheos nicola tube in expected position. A right upper extremity peripherally inserted central venous catheter (PICC) is seen with tip at the superior cavoatrial junction. IMPRESSION: 1. PICC tip at the superior cavoatrial junction. 2. Airspace opacities in right mid and lower lung zones and left lower lung zone with improvement on the right, consistent with atelectasis versus pneumonia. 3. Small right pleural effusion. Reviewed, dictated and finalized at location A. IMPRESSION: 1. PICC tip at the superior cavoatrial junction. 2. Airspace opacities in right mid and lower lung zones and left lower lung zon e with improvement on the right, consistent with atelectasis versus pneumonia. 3. Small right pleural effusion.
--- NOTE | ~2024-01-02 | CT_ITS ---
EXAMINATION: CT abdomen pelvis w con DATE: 01/04/2024 09:58 INDICATION: Abdominal pain. Nausea and vomiting. TECHNIQUE: Computed tomography (CT) of the abdomen and pelvis was performed with 100 mL Omnipaque 350 intravenous contrast. Automated exposure control and iterative reconstruction technique were employe d. The dose-length product was 1167.93 mGy-cm. COMPARISON: CT abdomen and pelvis 12/30/2023, 08/20/2023 FINDINGS: The visualized portions of the lung bases demonstrate airspace opacities in the lower lobes , right middle lobe, and lingula with volume loss, likely atelectasis. Calcified bilateral lung nodul es are consistent with old granulomatous disease. There are small pleural effusions. The heart size i s normal. No pericardial effusion. There is a 4 mm cyst in the liver. There is a 5 mm cyst in the spl een. The gallbladder is normal. There is at least incomplete pancreas divisum. The adrenal glands and kidneys are normal. There is a gastrostomy tube in expected position. The bladder is decompressed by a Jensen catheter. The prostate is mildly enlarged. There is liquid stool in the colon suggesting lyric rrhea. The appendix is normal. There is calcified atherosclerosis of the aorta and many of the other arteries. There is mild bilateral gynecomastia. There are no pathologically enlarged lymph nodes. The re is no free intraperitoneal fluid. There is moderate lumbar spondylosis. There is a 9 mm sclerotic lesion in right parasymphyseal pubis. IMPRESSION: 1. Small pleural effusions. 2. 9 mm sclerotic lesion in right parasymphyseal pubis, stable from 08/20/2023. This finding may be be nign or less likely metastatic disease. Consider bone scan. Reviewed, dictated and finalized at location A. IMPRESSION: 1. Small pleural effusions. 2. 9 mm sclerotic lesion in right parasymphyseal pubis, stable from 08/20/2023. This finding may be benign or less likely metastatic disease. Consider bone sca n.
--- NOTE | ~2024-01-02 | CT_ITS ---
Clinical Indication: Dyspnea CT Scan of the Chest with Contrast: Technique: Contiguous sections were acquired throughout the chest after intravenous administration of 100 cc of Omnipaque 350. Dose reduction technique was used on this scan by utilizing automated expos ure control and iterative reconstruction technique. The dose-length product (DLP) was 412.37 mGy-cm. COMPARISON: 12/13/2023 Findings: Tracheostomy cannula present. There is no evidence of any significant mediastinal, hilar or axillary lymphadenopathy. There is no f illing defect in the pulmonary arterial tree to suggest pulmonary embolus. There is no evidence of ao rtic dissection or aneurysm. Probable minimal left pleural effusion. No right pleural effusion. No pericardial effusion. There is extensive debris and/or fluid in the right mainstem bronchus and the central right bronchial tree. There is probable complete right lower lobe atelectasis, versus possibly pneumonia, and partia l right middle lobe atelectasis. Left lung is clear. Probable minimal emphysema the upper lobes. Images through the upper abdomen reveal no abnormalities. Impression: No evidence of pulmonary embolus, aortic dissection, or aortic aneurysm. Extensive debris and/or fluid in the right mainstem bronchus and central right bronchial tree. Associ ated probable complete right lower lobe atelectasis and/or pneumonia. Probable additional partial rig ht middle lobe atelectasis. Minimal dizziness. Minimal left pleural effusion. Reviewed, dictated and finalized at [facility]. Impression: No evidence of pulmonary embolus, aortic dissection, or aortic aneurysm. Extensive debris and/or fluid in the right mainstem bronchus and central right bronchial tree. Associated probable complete right lower lobe atelectasis and/o r pneumonia. Probable additional partial right middle lobe atelectasis. Minimal dizziness. Minimal left pleural effusion.
--- NOTE | 2024-01-02 03:03 | ECG_ITS ---
Test Date: 2024-01-02 03:05:23 Measurements Intervals [place] Rate: 123 P: 48 NE: 143 QRS: -11 QRSD: 92 T: 69 QT: 307 QTc: 441 Interpretive Statements SINUS TACHYCARDIA WITH OCCASIONAL ECTOPIC PREMATURE COMPLEXES PREVIOUS ANTEROSEPTAL AND PREVIOUS INFERIOR INFARCTIONS ABNORMAL ELECTROCARDIOGRAM Compared to ECG 12/13/2023 11:45:08 NO SIGNIFICANT CHANGE Electronically Signed On 01-02-2024 17:05:29 CDT by Chai Lentz M.D.
[2024-01-02 03:40] LABS: Basophils Percent Auto 0.3 % (0.2-1.2); Eosinophils Absolute Auto 0.4 K/mm3 (0-0.3); Eosinophils Percent Auto 2.3 % (0-4.4); Hematocrit 38.8 % (42.0-52.0); Immature Granulocyte Absolute 0.05 K/mm3 (0.00-0.031); Immature Granulocyte Percent A 0.3 % (0-0.5); Lymphocytes Percent Auto 16.1 % (18.3-44.2); Mean Corpuscular HGB Conc 33.5 g/dl (32-36); Mean Corpuscular Hemoglobin 32.9 pg (26-34); Mean Corpuscular Volume 98.2 fl (80-100); Mean Platelet Volume 14.4 fl (7.4-10.4); Monocytes Absolute Auto 1.2 K/mm3 (0.1-0.6); Monocytes Percent Auto 7.5 % (2.6-8.5); Neutrophils Absolute Auto 11.5 K/mm3 (1.3-6.7); Neutrophils Percent Auto 73.5 % (45.5-73.1); Platelet Count Result 106 k/mm3 (150-375); Red Blood Count 3.95 M/mm3 (4.6-6.20); White Blood Count 15.6 K/mm3 (4.5-10.0)
--- NOTE | 2024-01-02 03:44 | PC.NURSE ---
pt arrived to ed saturated in bowel movement. pt had caked on old bowel movement. this rn gave patient partial bed bath. this rn changed patient linen and diaper. this rn replaced patient paredes catheter.
[2024-01-02 03:48] LABS: Alanine Aminotransferase 18 U/L (6-50); Albumin Level 3.6 g/dL (3.5-5.1); Alkaline Phosphatase 96 U/L (38-126); Anion Gap 6 mmol/L (4-12); Aspartate Amino Transferase 27 U/L (17-59); Bilirubin,Total 0.3 mg/dL (0.2-1.3); Blood Urea Nitrogen 13 mg/dL (9-20); Calcium 9.2 mg/dL (8.4-10.2); Carbon Dioxide 28 mmol/L (22-30); Chloride 102 mmol/L (98-107); Estimated CRCL calculation 100 ml/min; Estimated Glomerular Filt Rate > 60; Glucose 118 mg/dL (65-110); Potassium 4.2 mmol/L (3.4-5.0); Sodium 136 mmol/L (137-145)
[2024-01-02 04:16] LABS: Lactic Acid Reflex 2.2 mmol/L (0.7-2.0)
[2024-01-02] MEDS: IPRATROPIUM 0.5 MG/ALBUTEROL SULFATE 2.5 MG AMPUL.NEB 3 ML INHALATION ×4 (05:37→20:26)
--- NOTE | 2024-01-02 06:21 | ED.GENADULT ---
HPI - General Adult General Chief complaint: Shortness of Breath/Dyspnea Stated complaint: SOB, TRACH REQUIRING O2 & SUCTION Time Seen by Provider: 01/02/24 04:05 History of Present Illness HPI narrative: patient is 63-year-old gentleman who presents emergency department from with [facility] complaining of shortness of breath. The patient is trached patient and the EMS noted that the patient had decreased oxygen saturations the patient has been more lethargic than normal and the patient had a large amount of stool covering him Related Data Home Medications Medication Instructions Recorded Confirmed atorvastatin 40 mg tablet 40 mg feeding tube QHS 11/14/22 12/13/23 folic acid 1 mg tablet 1 mg feeding tube DAILY 11/14/22 12/13/23 lacosamide 200 mg tablet 200 mg feeding tube Q12H 11/14/22 12/13/23 aspirin 81 mg chewable tablet 81 mg feeding tube DAILY 11/15/22 12/13/23 metoprolol tartrate 25 mg tablet 25 mg feeding tube Q12H 12/18/22 12/13/23 polyethylene glycol 3350 17 17 g feeding tube Q12H 12/18/22 12/13/23 gram/dose oral powder bisacodyl 10 mg rectal suppository 10 mg RECTAL DAILY PRN Constipation 02/11/23 12/13/23 sennosides 8.6 mg tablet (senna) 8.6 mg feeding tube HS PRN 02/11/23 12/13/23 Constipation thiamine HCl (vitamin B1) 100 mg 100 mg feeding tube DAILY 02/11/23 12/13/23 tablet clobazam 10 mg tablet 15 mg feeding tube HS 03/21/23 12/13/23 famotidine 20 mg tablet 20 mg feeding tube Q12H 03/21/23 12/13/23 levetiracetam 100 mg/mL oral 2,000 mg feeding tube Q12H 03/21/23 12/13/23 solution (Keppra) peg [id number] 1 1 drp EACH EYE 4-6XD PRN Dry Eyes 03/21/23 12/13/23 %-0.2 %-0.2 % eye drops (Artificial Tears ([id number])) valproic acid (as sodium salt) 250 500 mg PO QID 03/21/23 12/13/23 mg/5 mL oral solution calcium carbonate 500 mg/5 mL (as 1,250 mg feeding tube Q6H PRN 07/08/23 12/13/23 calcium carb 1,250 mg/5 mL) oral Heartburn suspension guaifenesin 100 mg/5 mL oral liquid 600 mg feeding tube Q6HR 07/08/23 12/13/23 ipratropium 0.5 mg-albuterol 3 mg 3 ml inhalation Q4H PRN Shortness 07/08/23 12/13/23 (2.5 mg base)/3 mL nebulization Of Breath soln magnesium citrate 300 ml PO DAILY PRN Constipation 07/08/23 12/13/23 ibuprofen 200 mg tablet 600 mg feeding tube PRN 12/13/23 12/13/23 lanolin alcohols-mineral 1 applic topical DAILY 12/13/23 12/13/23 oil-w.petrolatum-ceresin topical cream (Minerin Creme topical) magnesium hydroxide 400 mg/5 mL 30 ml feeding tube PRN 12/13/23 12/13/23 oral suspension (Milk of Magnesia) Allergies Allergy/AdvReac Type Severity Reaction Status Date / Time clonazepam Allergy Unknown Unknown Verified 12/23/23 11:27 Review of Systems Review of Systems: A 10 system review of systems was completed on the patient and is negative except for what is stated in the HPI. Nursing and ancillary documentation was reviewed. [facility], [facility] Past Medical History Medical History Benign prostatic hyperplasia Cerebrovascular accident Residual expressive aphasia, dysphagia, and left-sided weakness. Chronic obstructive pulmonary disease Deep venous thrombosis of upper extremity Esophageal diverticulum Gastroparesis Iron deficiency anemia Seizure disorder Vascular dementia with psychotic disturbance Surgical History Surgical History History of gastrostomy tube placement History of left above knee amputation History of tracheostomy Family History Family History Other Unknown family medical history Social History Social History Social History: Surrogate medical decision maker: Adriane Babak, sibling. Code status: Full code. Smoking status: Unknown if ever smoked Alcohol intake: former
--- NOTE | 2024-01-02 06:37 | PC.NURSE ---
per edp dr. [place], this rn contacted adult protective services and [facility] not [facility] basic needs.
[2024-01-02] MEDS: CEFEPIME 2 GM/NS 50 ML 2 GM/50 ML BAG IVPB ×3 (06:46→22:59)
[2024-01-02 07:00] LABS: Reflex Lactic Acid Yes or No Add Lactic
[2024-01-02] MEDS: VANCOMYCIN 1,750 MG/NS 500 ML 1,750 MG/500 ML BAG 250 MG IVPB (07:03)
[2024-01-02 08:34] LABS: MRSA (PCR) DETECTED (NOT DETECTE)
--- NOTE | 2024-01-02 09:20 | PM.IMHP ---
H&P: HPI History of Present Illness Date/Time: 01/02/24 09:20 Chief Complaint: Shortness of breath/dyspnea Narrative: This is a 63-year-old male with a significant past medical history of BPH, CVA with left-sided weakness, COPD, seizures, vascular dementia, tracheostomy who presented to the hospital with complaints of shortness of breath/dyspnea requiring increased oxygen demand from [place]. Most of history of presenting illness was obtained from the EMR. He was able to answer some questions for me. He reports nausea and abdominal pain. Workup in the hospital and abdomen/pelvis CT which shown wall thickening of the esophagus likely esophagitis, mucus plugging and right lower lobe, airspace opacities in the right lower lobe, 9 mm sclerotic lesion in the right parasymphyseal pubis. CTA of the chest was negative for PE, extensive debris and/or fluid in the right mainstem bronchus and central right bronchial tree, minimal left pleural effusion. Chest x-ray today showed small right pleural effusion with probable right basilar atelectasis possible minimal bibasilar pulmonary edema, tracheostomy cannula. Initial labs showed a white blood cell count of 15.6, hemoglobin 13.0, platelet count 106, sodium 136, lactic acid 2.2, MRSA positive. Blood cultures were obtained and are pending. Patient was started on vancomycin and cefepime. Review of Systems Review of Systems: All systems reviewed & are unremarkable except as noted in HPI and below Constitutional: Constitutional: Reports as per HPI and Reports no additional constitutional complaints Eyes: Eyes: Reports as per HPI and Reports no additional eye complaints ENT: Reports system reviewed and no additional complaints, except as documented and Reports as per HPI Cardiovascular: Cardiovascular: Reports as per HPI and Reports no additional cardiovascular complaints Respiratory: Respiratory: Reports as per HPI and Reports no additional respiratory complaints Gastrointestinal: Gastrointestinal: Reports as per HPI and Reports no additional gastrointestinal complaints Genitourinary: Genitourinary: Reports no additional male genitourinary complaints and Reports as per HPI Musculoskeletal: Musculoskeletal: Reports no additional musculoskeletal complaints and Reports as per HPI Integumentary/Breasts: Skin/Breast: Reports system reviewed and no additional complaints, except as docu and Reports as per HPI Neurologic: Reports system reviewed and no additional complaints, except as documented and Reports as per HPI Psychiatric: Psychiatric: Reports no additional psychiatric complaints and Reports as per HPI [facility] Past Medical History Medical History Benign prostatic hyperplasia Cerebrovascular accident Residual expressive aphasia, dysphagia, and left-sided weakness. Chronic obstructive pulmonary disease Deep venous thrombosis of upper extremity Esophageal diverticulum Gastroparesis Iron deficiency anemia Seizure disorder Vascular dementia with psychotic disturbance Surgical History Surgical History History of gastrostomy tube placement History of left above knee amputation History of tracheostomy Family History Family History Other Unknown family medical history Social History Social History Social History: Surrogate medical decision maker: Adriane Hilliard, sibling. Code status: Full code. Smoking status: Unknown if ever smoked Alcohol intake: former Substance use: unknown Substance use type: does not use Lack of Transportation: No Lack of Food: Never True Current Housing: I Have Housing Concerned About Future Housing: No Difficulty Paying Gas/Electric Bills: No Difficulty Paying for Meds: No Currently Unemployed: No Education: Don't K
[2024-01-02] MEDS: AZITHROMYCIN 250 MG TABLET 500 MG PO (09:45)
[2024-01-02 10:20] LABS: Lactic Acid 2.5 mmol/L (0.7-2.0)
[2024-01-02 10:32] LABS: Troponin I < 0.012 ng/mL (0.000-0.034)
[2024-01-02 12:51] LABS: Troponin I < 0.012 ng/mL (0.000-0.034)
[2024-01-02] MEDS: LACOSAMIDE (*CRX) 200 MG TABLET FEED TUBE ×2 (13:33→21:56)
[2024-01-02] MEDS: VALPROIC ACID LIQ 250 MG/5 ML ORAL SOLUTION UDC 500 MG FEED TUBE ×3 (13:33→21:56)
[2024-01-02] MEDS: levETIRAcetam ORAL SOL 500 MG/5 ML UDC 2000 MG FEED TUBE ×2 (13:33→21:55)
[2024-01-02] MEDS: METOPROLOL TARTRATE 25 MG TABLET FEED TUBE ×2 (13:33→21:56)
[2024-01-02 16:55] LABS: Troponin I < 0.012 ng/mL (0.000-0.034)
[2024-01-02 17:29] LABS: Glucose Point of Care 153 mg/dl (65-105)
[2024-01-02] MEDS: guaiFENesin 200 MG/10 ML UDC 600 MG FEED TUBE ×2 (18:17→23:00)
[2024-01-02] MEDS: VANCOMYCIN 1,250 MG/NS 250 ML 1,250 MG/250 ML BAG 166.67 MG IVPB (18:17)
[2024-01-02] MEDS: ATORVASTATIN 40 MG TABLET FEED TUBE (21:56)
[2024-01-03] VITALS (28 sets, daily range): BP systolic 108–132; BP diastolic 62–80; PULSE 64–105; RESP 16–22; TEMP 35.9–37.2; O2SAT 93–100
[2024-01-03 01:24] LABS: Alveolar/Arterial O2 Gradient 82.2 mmHg; Base Excess ABG 2.6 mEq/l (+/-2.0); Fractional Inspired Oxygen 31 %; HCO3 ABG 26.2 mEq/l (22.0-26.0); Oxygen Content ABG 16.4 %vol (16.0-22.0); Oxygen Saturation ABG 97.7 % (95.0-100.0); Oxyhemoglobin 97.2 % THb (90.0-100.0); PCO2 ABG 36.6 mmHg (35.0-45.0); PO2 ABG 95.9 mmHg (80.0-100.0); PO2 FiO2 Ratio Arterial Blood 3.09 %; Total Hemoglobin 11.9 g/dL (12.0-18.0); pH ABG 7.472 (7.350-7.450)
[2024-01-03 01:26] LABS: Device HIGH FLOW THERAPY; Modified Allen's Test Pass; Site Drawn RIGHT RADIAL
[2024-01-03] MEDS: IPRATROPIUM 0.5 MG/ALBUTEROL SULFATE 2.5 MG AMPUL.NEB 3 ML INHALATION ×4 (02:43→20:26)
[2024-01-03 04:50] LABS: Basophils Percent Auto 0.3 % (0.2-1.2); Eosinophils Absolute Auto 0.4 K/mm3 (0-0.3); Eosinophils Percent Auto 4.4 % (0-4.4); Hemoglobin 10.9 g/dL (14.0-18.0); Immature Granulocyte Absolute 0.02 K/mm3 (0.00-0.031); Immature Granulocyte Percent A 0.2 % (0-0.5); Immature Platelet Fraction Pct 19.2 % (0.9-11.2); Lymphocytes Absolute Auto 2.82 K/mm3 (0.9-3.2); Lymphocytes Percent Auto 29.7 % (18.3-44.2); Mean Corpuscular HGB Conc 32.1 g/dl (32-36); Mean Corpuscular Hemoglobin 32.9 pg (26-34); Mean Corpuscular Volume 102.7 fl (80-100); Mean Platelet Volume 13.9 fl (7.4-10.4); Monocytes Absolute Auto 0.8 K/mm3 (0.1-0.6); Monocytes Percent Auto 7.9 % (2.6-8.5); Neutrophils Absolute Auto 5.5 K/mm3 (1.3-6.7); Neutrophils Percent Auto 57.5 % (45.5-73.1); Platelet Count Result 112 k/mm3 (150-375); Red Blood Count 3.31 M/mm3 (4.6-6.20); Red Cell Distribution Width 14.3 % (11.5-14.5); White Blood Count 9.5 K/mm3 (4.5-10.0)
[2024-01-03 05:08] LABS: Alanine Aminotransferase 16 U/L (6-50); Albumin Level 3.3 g/dL (3.5-5.1); Alkaline Phosphatase 76 U/L (38-126); Anion Gap 8 mmol/L (4-12); Aspartate Amino Transferase 28 U/L (17-59); Bilirubin,Total 0.4 mg/dL (0.2-1.3); Blood Urea Nitrogen 14 mg/dL (9-20); Calcium 8.8 mg/dL (8.4-10.2); Carbon Dioxide 26 mmol/L (22-30); Chloride 104 mmol/L (98-107); Estimated CRCL calculation 106 ml/min; Estimated Glomerular Filt Rate > 60; Glucose 107 mg/dL (65-110); Potassium 4.2 mmol/L (3.4-5.0); Sodium 138 mmol/L (137-145)
[2024-01-03] MEDS: guaiFENesin 200 MG/10 ML UDC 600 MG FEED TUBE ×4 (06:53→23:15)
[2024-01-03] MEDS: CEFEPIME 2 GM/NS 50 ML 2 GM/50 ML BAG IVPB ×3 (06:53→23:15)
[2024-01-03] MEDS: THIAMINE HCL 100 MG TABLET FEED TUBE (08:29)
[2024-01-03] MEDS: ASPIRIN 81 MG CHEWABLE TABLET FEED TUBE (08:29)
[2024-01-03] MEDS: LACOSAMIDE (*CRX) 200 MG TABLET FEED TUBE ×2 (08:29→22:06)
[2024-01-03] MEDS: levETIRAcetam ORAL SOL 500 MG/5 ML UDC 2000 MG FEED TUBE ×2 (08:30→22:06)
[2024-01-03] MEDS: AZITHROMYCIN 250 MG TABLET 500 MG PO (08:30)
[2024-01-03] MEDS: FOLIC ACID 1 MG TABLET FEED TUBE (08:30)
[2024-01-03] MEDS: METOPROLOL TARTRATE 25 MG TABLET FEED TUBE ×2 (08:30→22:04)
[2024-01-03] MEDS: VALPROIC ACID LIQ 250 MG/5 ML ORAL SOLUTION UDC 500 MG FEED TUBE ×4 (08:30→22:07)
[2024-01-03] MEDS: VANCOMYCIN 1,250 MG/NS 250 ML 1,250 MG/250 ML BAG 166.67 MG IVPB ×2 (08:31→21:59)
--- NOTE | 2024-01-03 11:17 | P.PNIM_ITS ---
Progress Note: A&P Assessment and Plan (1) Sepsis: Code(s): A41.9 - Sepsis, unspecified organism Status: Acute Assessment and Plan: 01/02/24: * Patient initially meeting sepsis criteria with a presenting heart rate of 124, respiratory rate of 27, white blood cell count 15.6, lactic acid 2.2, with probable source of infection being pneumonia * Blood cultures were obtained and are pending * CT of abdomen pelvis showed mucus plugging in the right lower lobe with airspace opacities in right lower lobe 01/03/24: * Heart rate in the 80s to 90s, respiratory rate 20 white blood cell count down to 9.5 * Will recheck lactic acid * Blood cultures are showing no growth on preliminary read * Sputum culture was unacceptable for culture we will repeat again today * Continue IV antibiotics (2) Pneumonia: Qualifiers: Laterality: right Lung location: unspecified part of lung Pneumonia type: due to unspecified organism Qualified Code(s): J18.9 - Pneumonia, unspecified organism Code(s): J18.9 - Pneumonia, unspecified organism Status: Acute Assessment and Plan: 01/02/24: * Likely hospital-acquired pneumonia versus aspiration pneumonia * Patient was recently seen in the ER on 12/30/23 due to vomiting of tube feeding. Patient was discharged from the ER same day. * CT of the abdomen pelvis showed mucus plugging in the right lower lobe with airspace opacities in the right lower lobe * Chest CTA was negative for PE, showed extensive debris and/or fluid in the right mainstem bronchus and central right bronchial tree, minimal left pleural effusion * Chest x-ray shows small right pleural effusion with probable right basilar atelectasis and minimal bibasilar pulmonary edema * Patient started on vancomycin and cefepime, added azithromycin * He is MRSA positive * DuoNebs ordered q.6 hour * Will obtain sputum culture * Will check urine strep, urine Legionella, mycoplasma today * Chest PT order t.i.d. 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 - Tracheostomy status Status: Chronic Assessment and Plan: 01/02/24: * Size 6 Bivona [place] * Dislodged on admission and replaced well in the ED * Thick marie sputum noted * Continue trach care daily * Currently on trach collar 30 L 40% 01/03/24: * Continue weaning oxygen * Currently on 10 L and 30% (4) Seizure disorder: Code(s): G40.909 - Epilepsy, unspecified, not intractable, without status epilepticus Status: Chronic Assessment and Plan: 01/02/24: * Will continue Keppra, Valproic acid, and Lacosamide 01/03/24: * No change to current treatment plan (5) Gastrojejunal tube present: Code(s): Z93.1 - Gastrostomy status Status: Acute Assessment and Plan: 01/02/24: * Continue tube feeding and tube feeding diet * Home meds per tube 01/03/24: * Tube feedings on hold as patient had nausea and vomiting again yesterday of his tube feed * Will get CT scan today Time Spent With Patient Time with patient: Greater than 35 minutes Subjective Date/time seen: 01/03/24 11:17 Interval history: Interval history: This is a 63-year-old male with a significant past medical history of BPH, CVA with left-sided weakness, COPD, seizures, vascular dementia, tracheostomy who presented to the hospital with complaints of shortness of breath/dyspnea requiring increased oxygen demand from [place]
--- NOTE | 2024-01-03 11:17 | PM.IMPN ---
Progress Note: A&P Assessment and Plan (1) Sepsis: Code(s): A41.9 - Sepsis, unspecified organism Status: Acute Assessment and Plan: 01/02/24: Patient initially meeting sepsis criteria with a presenting heart rate of 124, respiratory rate of 27, white blood cell count 15.6, lactic acid 2.2, with probable source of infection being pneumonia Blood cultures were obtained and are pending CT of abdomen pelvis showed mucus plugging in the right lower lobe with airspace opacities in right lower lobe 01/03/24: Heart rate in the 80s to 90s, respiratory rate 20 white blood cell count down to 9.5 Will recheck lactic acid Blood cultures are showing no growth on preliminary read Sputum culture was unacceptable for culture we will repeat again today Continue IV antibiotics (2) Pneumonia: Qualifiers: Laterality: right Lung location: unspecified part of lung Pneumonia type: due to unspecified organism Qualified Code(s): J18.9 - Pneumonia, unspecified organism Code(s): J18.9 - Pneumonia, unspecified organism Status: Acute Assessment and Plan: 01/02/24: Likely hospital-acquired pneumonia versus aspiration pneumonia Patient was recently seen in the ER on 12/30/23 due to vomiting of tube feeding. Patient was discharged from the ER same day. CT of the abdomen pelvis showed mucus plugging in the right lower lobe with airspace opacities in the right lower lobe Chest CTA was negative for PE, showed extensive debris and/or fluid in the right mainstem bronchus and central right bronchial tree, minimal left pleural effusion Chest x-ray shows small right pleural effusion with probable right basilar atelectasis and minimal bibasilar pulmonary edema Patient started on vancomycin and cefepime, added azithromycin He is MRSA positive DuoNebs ordered q.6 hour Will obtain sputum culture Will check urine strep, urine Legionella, mycoplasma today Chest PT order t.i.d. along with PeP therapy for the mucus plugging Patient may require bronchoscopy and/or pulmonology consult 01/03/24: Continue with current treatment plan (3) Tracheostomy dependence: Code(s): Z93.0 - Tracheostomy status Status: Chronic Assessment and Plan: 01/02/24: Size 6 Bivona [place] Dislodged on admission and replaced well in the ED Thick marie sputum noted Continue trach care daily Currently on trach collar 30 L 40% 01/03/24: Continue weaning oxygen Currently on 10 L and 30% (4) Seizure disorder: Code(s): G40.909 - Epilepsy, unspecified, not intractable, without status epilepticus Status: Chronic Assessment and Plan: 01/02/24: Will continue Keppra, Valproic acid, and Lacosamide 01/03/24: No change to current treatment plan (5) Gastrojejunal tube present: Code(s): Z93.1 - Gastrostomy status Status: Acute Assessment and Plan: 01/02/24: Continue tube feeding and tube feeding diet Home meds per tube 01/03/24: Tube feedings on hold as patient had nausea and vomiting again yesterday of his tube feed Will get CT scan today Time Spent With Patient Time with patient: Greater than 35 minutes Subjective Date/time seen: 01/03/24 11:17 Interval history: Interval history: This is a 63-year-old male with a significant past medical history of BPH, CVA with left-sided weakness, COPD, seizures, vascular dementia, tracheostomy who presented to the hospital with complaints of shortness of breath/dyspnea requiring increased oxygen demand from [place]. Most of history of presenting illness was obtained from the EMR. He was able to answer some questions for me. He reports nausea and abdominal pain. Workup in the hospital and abdomen/pelvis CT which shown wall thickening of the esophagus likely esophagitis, mucus plugging and right lower lobe, airspace opacities in the right lower lobe, 9 mm sclerotic lesion in the right parasymphyseal pubis. CTA of the chest was negative for PE, extensive
--- NOTE | 2024-01-03 13:18 | PCNFU ---
Nutrition Follow-Up Complete: Inability to meet nutrition needs PO related to chronic tracheostomy, dysphagia as evidenced by need for full tube feeding Goal:Meet estimated nutrition needs Improve weight (may need to increase tube feeding rate) Pt currently not meeting goals. Pt current nutrition is Jevity 1.5 @ 50ml/hr wtih 250ml flushes q 6 hrs= 1650kcals, 70g protein, 1836ml free water. Nutrition recommendation: Resume tube feeds when appropriate Last recorded weight is 68.8 kg. Bowel Motility: No BM recorded at this time Labs Reviewed: Hgb:10.9, HCT:34, Alb:3.3, Cr:0.6 Meds Noted: thiamin Skin: No pressure injuries noted Additional Notes: Pt tube feedings on hold due to nausea and vomiting overnight. Plans for CT scan today. Will monitor restart of feedings. Monitoring weights, labs, tube feeding tolerance, plan of care Follow up Tuesdays and Fridays
[2024-01-03 21:24] LABS: Vancomycin Trough 15.7 ug/mL (10.0-20.0)
[2024-01-03] MEDS: ATORVASTATIN 40 MG TABLET FEED TUBE (22:06)
[2024-01-03 23:26] LABS: Lactic Acid Reflex 1.7 mmol/L (0.7-2.0)
[2024-01-04] VITALS (27 sets, daily range): BP systolic 109–144; BP diastolic 61–70; PULSE 67–104; RESP 16–22; TEMP 36.2–36.8; O2SAT 92–98
[2024-01-04] MEDS: IPRATROPIUM 0.5 MG/ALBUTEROL SULFATE 2.5 MG AMPUL.NEB 3 ML INHALATION ×4 (01:36→20:36)
[2024-01-04 05:06] LABS: Basophils Percent Auto 0.6 % (0.2-1.2); Eosinophils Absolute Auto 0.6 K/mm3 (0-0.3); Eosinophils Percent Auto 8.6 % (0-4.4); Hematocrit 33.7 % (42.0-52.0); Hemoglobin 10.9 g/dL (14.0-18.0); Immature Granulocyte Absolute 0.01 K/mm3 (0.00-0.031); Immature Granulocyte Percent A 0.1 % (0-0.5); Lymphocytes Absolute Auto 2.56 K/mm3 (0.9-3.2); Lymphocytes Percent Auto 37.4 % (18.3-44.2); Mean Corpuscular HGB Conc 32.3 g/dl (32-36); Mean Corpuscular Hemoglobin 32.7 pg (26-34); Mean Corpuscular Volume 101.2 fl (80-100); Mean Platelet Volume 13.8 fl (7.4-10.4); Monocytes Absolute Auto 0.6 K/mm3 (0.1-0.6); Monocytes Percent Auto 8.5 % (2.6-8.5); Neutrophils Absolute Auto 3.1 K/mm3 (1.3-6.7); Neutrophils Percent Auto 44.8 % (45.5-73.1); Platelet Count Result 119 k/mm3 (150-375); Red Blood Count 3.33 M/mm3 (4.6-6.20); White Blood Count 6.9 K/mm3 (4.5-10.0)
[2024-01-04 05:26] LABS: Alanine Aminotransferase 15 U/L (6-50); Albumin Level 3.5 g/dL (3.5-5.1); Alkaline Phosphatase 78 U/L (38-126); Anion Gap 8 mmol/L (4-12); Aspartate Amino Transferase 23 U/L (17-59); Bilirubin,Total 0.5 mg/dL (0.2-1.3); Blood Urea Nitrogen 13 mg/dL (9-20); Calcium 9.2 mg/dL (8.4-10.2); Carbon Dioxide 27 mmol/L (22-30); Chloride 104 mmol/L (98-107); Estimated CRCL calculation 108 ml/min; Estimated Glomerular Filt Rate > 60; Glucose 92 mg/dL (65-110); Sodium 139 mmol/L (137-145)
[2024-01-04] MEDS: CEFEPIME 2 GM/NS 50 ML 2 GM/50 ML BAG IVPB ×3 (07:05→20:37)
[2024-01-04] MEDS: guaiFENesin 200 MG/10 ML UDC 600 MG FEED TUBE ×3 (07:05→17:28)
[2024-01-04] MEDS: VANCOMYCIN 1,250 MG/NS 250 ML 1,250 MG/250 ML BAG 166.67 MG IVPB ×2 (07:05→18:36)
--- NOTE | 2024-01-04 09:51 | P.PNIM_ITS ---
Progress Note: A&P Assessment and Plan (1) Sepsis: Code(s): A41.9 - Sepsis, unspecified organism Status: Acute Assessment and Plan: 01/02/24: * Patient initially meeting sepsis criteria with a presenting heart rate of 124, respiratory rate of 27, white blood cell count 15.6, lactic acid 2.2, with probable source of infection being pneumonia * Blood cultures were obtained and are pending * CT of abdomen pelvis showed mucus plugging in the right lower lobe with airspace opacities in right lower lobe 01/03/24: * Heart rate in the 80s to 90s, respiratory rate 20 white blood cell count down to 9.5 * Will recheck lactic acid * Blood cultures are showing no growth on preliminary read * Sputum culture was unacceptable for culture we will repeat again today * Continue IV antibiotics 01/04/24: * Lactic acid 1.7 * Blood culture showing Gram-positive cocci in clusters in 1/2 vials which could likely be a contaminant * Continue IV antibiotics * Still awaiting sputum culture (2) Pneumonia: Qualifiers: Laterality: right Lung location: unspecified part of lung Pneumonia ty pe: due to unspecified organism Qualified Code(s): J18.9 - Pneumonia, unspecified organism Code(s): J18.9 - Pneumonia, unspecified organism Status: Acute Assessment and Plan: 01/02/24: * Likely hospital-acquired pneumonia versus aspiration pneumonia * Patient was recently seen in the ER on 12/30/23 due to vomiting of tube feeding. Patient was discharged from the ER same day. * CT of the abdomen pelvis showed mucus plugging in the right lower lobe with airspace opacities in the right lower lobe * Chest CTA was negative for PE, showed extensive debris and/or fluid in the right mainstem bronchus and central right bronchial tree, minimal left pleural effusion * Chest x-ray shows small right pleural effusion with probable right basilar atelectasis and minimal bibasilar pulmonary edema * Patient started on vancomycin and cefepime, added azithromycin * He is MRSA positive * DuoNebs ordered q.6 hour * Will obtain sputum culture * Will check urine strep, urine Legionella, mycoplasma today * Chest PT order t.i.d. 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 - Tracheostomy status Status: Chronic Assessment and Plan: 01/02/24: * Size 6 Bivona [place] * Dislodged on admission and replaced well in the ED * Thick marie sputum noted * Continue trach care daily * Currently on trach collar 30 L 40% 01/03/24: * Continue weaning oxygen * Currently on 10 L and 30% 01/04/24: * Currently on 15 L and 25% * Continue to wean O2 (4) Seizure disorder: Code(s): G40.909 - Epilepsy, unspecified, not intractable, without status epilepticus Status: Chronic Assessment and Plan: 01/02/24: * Will continue Keppra, Valproic acid, and Lacosamide 01/03/24: * No change to current treatment plan (5) Gastrojejunal tube present: Code(s): Z93.1 - Gastrostomy status Status: Acute Assessment and Plan: 01/02/24: * Continue tube feeding and tube feeding diet * Home meds per tube 01/03/24: * Tube feedings on hold as patient had nausea and vomiting again yesterday of his tube feed * Will get CT scan today 01/04/24: * CT of the abdomen pelvis today only showed small pleural effusion, 9 mm sclerotic lesion in the right parasymphyseal pubis as previously noted on
--- NOTE | 2024-01-04 09:51 | PM.IMPN ---
Progress Note: A&P Assessment and Plan (1) Sepsis: Code(s): A41.9 - Sepsis, unspecified organism Status: Acute Assessment and Plan: 01/02/24: Patient initially meeting sepsis criteria with a presenting heart rate of 124, respiratory rate of 27, white blood cell count 15.6, lactic acid 2.2, with probable source of infection being pneumonia Blood cultures were obtained and are pending CT of abdomen pelvis showed mucus plugging in the right lower lobe with airspace opacities in right lower lobe 01/03/24: Heart rate in the 80s to 90s, respiratory rate 20 white blood cell count down to 9.5 Will recheck lactic acid Blood cultures are showing no growth on preliminary read Sputum culture was unacceptable for culture we will repeat again today Continue IV antibiotics 01/04/24: Lactic acid 1.7 Blood culture showing Gram-positive cocci in clusters in 1/2 vials which could likely be a contaminant Continue IV antibiotics Still awaiting sputum culture (2) Pneumonia: Qualifiers: Laterality: right Lung location: unspecified part of lung Pneumonia type: due to unspecified organism Qualified Code(s): J18.9 - Pneumonia, unspecified organism Code(s): J18.9 - Pneumonia, unspecified organism Status: Acute Assessment and Plan: 01/02/24: Likely hospital-acquired pneumonia versus aspiration pneumonia Patient was recently seen in the ER on 12/30/23 due to vomiting of tube feeding. Patient was discharged from the ER same day. CT of the abdomen pelvis showed mucus plugging in the right lower lobe with airspace opacities in the right lower lobe Chest CTA was negative for PE, showed extensive debris and/or fluid in the right mainstem bronchus and central right bronchial tree, minimal left pleural effusion Chest x-ray shows small right pleural effusion with probable right basilar atelectasis and minimal bibasilar pulmonary edema Patient started on vancomycin and cefepime, added azithromycin He is MRSA positive DuoNebs ordered q.6 hour Will obtain sputum culture Will check urine strep, urine Legionella, mycoplasma today Chest PT order t.i.d. along with PeP therapy for the mucus plugging Patient may require bronchoscopy and/or pulmonology consult 01/03/24: Continue with current treatment plan (3) Tracheostomy dependence: Code(s): Z93.0 - Tracheostomy status Status: Chronic Assessment and Plan: 01/02/24: Size 6 Bivona [place] Dislodged on admission and replaced well in the ED Thick marie sputum noted Continue trach care daily Currently on trach collar 30 L 40% 01/03/24: Continue weaning oxygen Currently on 10 L and 30% 01/04/24: Currently on 15 L and 25% Continue to wean O2 (4) Seizure disorder: Code(s): G40.909 - Epilepsy, unspecified, not intractable, without status epilepticus Status: Chronic Assessment and Plan: 01/02/24: Will continue Keppra, Valproic acid, and Lacosamide 01/03/24: No change to current treatment plan (5) Gastrojejunal tube present: Code(s): Z93.1 - Gastrostomy status Status: Acute Assessment and Plan: 01/02/24: Continue tube feeding and tube feeding diet Home meds per tube 01/03/24: Tube feedings on hold as patient had nausea and vomiting again yesterday of his tube feed Will get CT scan today 01/04/24: CT of the abdomen pelvis today only showed small pleural effusion, 9 mm sclerotic lesion in the right parasymphyseal pubis as previously noted on other scans. Will start Reglan and tube feeds Time Spent With Patient Time with patient: Greater than 35 minutes Subjective Date/time seen: 01/04/24 09:51 Interval history: Interval history: This is a 63-year-old male with a significant past medical history of BPH, CVA with left-sided weakness, COPD, seizures, vascular dementia, tracheostomy who presented to the hospital with complaints of shortness of breath/dyspnea requiring increased oxygen demand fro
--- NOTE | 2024-01-04 10:00 | PC.NURSE ---
Patient back in room from CT with RN at bedside. No issues noted. Medications given at this time.
[2024-01-04] MEDS: levETIRAcetam ORAL SOL 500 MG/5 ML UDC 2000 MG FEED TUBE ×2 (10:10→20:26)
[2024-01-04] MEDS: VALPROIC ACID LIQ 250 MG/5 ML ORAL SOLUTION UDC 500 MG FEED TUBE ×4 (10:11→20:26)
[2024-01-04] MEDS: THIAMINE HCL 100 MG TABLET FEED TUBE (10:12)
[2024-01-04] MEDS: FOLIC ACID 1 MG TABLET FEED TUBE (10:12)
[2024-01-04] MEDS: METOPROLOL TARTRATE 25 MG TABLET FEED TUBE ×2 (10:12→20:27)
[2024-01-04] MEDS: LACOSAMIDE (*CRX) 200 MG TABLET FEED TUBE ×2 (10:13→20:27)
[2024-01-04] MEDS: ASPIRIN 81 MG CHEWABLE TABLET FEED TUBE (10:18)
[2024-01-04] MEDS: AZITHROMYCIN 250 MG TABLET 500 MG PO (10:23)
--- NOTE | 2024-01-04 12:25 | PCNFU ---
Nutrition Follow-Up Complete: Inability to meet nutrition needs PO related to chronic tracheostomy, dysphagia as evidenced by need for full tube feeding Goal: Meet estimated nutrition needs - Not able to progress, not tolerating tube feeding with nausea and vomiting Improve weight (may need to increase tube feeding rate) - Weight up 5 kg since admission Pt current nutrition is Jevity 1.5 @ goal rate 50 ml/hL 1650 kcal, 70 g protein, 836 ml free water with 250 ml free water flush q 6 hours. Nutrition recommendation: Osmolite 1.5 @ 150 ml bolus QID. flush 250 ml water with each bolus. Prokinetic before bolus. Elevate head of bed 30-45 degrees for AT LEAST 30 minutes after feeding. Last recorded weight is 70.4 kg. Bowel Motility: Last BM charted 01/02/24 Labs Reviewed: Hgb 10.9, Hct 33.7, Cre 0.6 Meds Noted: Thiamine, reglan, vancomycin Skin: No pressure injuries Additional Notes: Not tolerating tube feeding as evidenced by nausea and vomiting as well as pneumonia. Pt has been aspirating and not tolerating tube feeding on several visits. Discussed with Angela. As pt is not tolerating continuous feedings she would like to try a low volume bolus. Discussed with Angela that continuous feeds are usually better tolerating but we will try the bolus with pt started on Reglan IV to be given before bolus. In addition we will try a fiber-free formula (Osmolite) and be sure the head of the bed is elevated 30-45 degrees for AT LEAST 30 minutes after feeding. Discussed with nursing and will follow closely. Palliative care/hospice discussion per Angela as pt has been hospitalized with similar several times. Monitoring weights, labs, tube feeding tolerance, plan of care Follow up Tuesdays and Fridays
[2024-01-04] MEDS: METOCLOPRAMIDE HCL 10 MG/10 ML SOLN UDC PO ×3 (12:43→20:33)
--- NOTE | 2024-01-04 13:06 | PCDIET ---
TUBE FEEDING NOTE: Nutrition recommendation: Osmolite 1.5 @ 150 ml bolus QID. flush 250 ml water with each bolus. Prokinetic before bolus. Elevate head of bed 30-45 degrees for AT LEAST 30 minutes after feeding.
--- NOTE | 2024-01-04 13:29 | PC.NURSE ---
Reviewed tube feeding orders with BOUCHRA Miller.
[2024-01-04] MEDS: ATORVASTATIN 40 MG TABLET FEED TUBE (20:27)
[2024-01-05] VITALS (27 sets, daily range): BP systolic 116–137; BP diastolic 65–77; PULSE 73–105; RESP 16–23; TEMP 36.3–37.1; O2SAT 93–99
[2024-01-05] MEDS: guaiFENesin 200 MG/10 ML UDC 600 MG FEED TUBE ×5 (00:12→22:37)
[2024-01-05] MEDS: IPRATROPIUM 0.5 MG/ALBUTEROL SULFATE 2.5 MG AMPUL.NEB 3 ML INHALATION ×4 (02:48→21:04)
[2024-01-05] MEDS: CEFEPIME 2 GM/NS 50 ML 2 GM/50 ML BAG IVPB (05:10)
[2024-01-05] MEDS: METOCLOPRAMIDE HCL 10 MG/10 ML SOLN UDC PO ×4 (05:15→22:37)
[2024-01-05] MEDS: VANCOMYCIN 1,250 MG/NS 250 ML 1,250 MG/250 ML BAG 166.67 MG IVPB (05:53)
[2024-01-05 05:59] LABS: Basophils Percent Auto 0.5 % (0.2-1.2); Eosinophils Absolute Auto 0.5 K/mm3 (0-0.3); Eosinophils Percent Auto 8.4 % (0-4.4); Hematocrit 31.1 % (42.0-52.0); Hemoglobin 10.3 g/dL (14.0-18.0); Immature Granulocyte Absolute 0.02 K/mm3 (0.00-0.031); Immature Granulocyte Percent A 0.3 % (0-0.5); Immature Platelet Fraction Pct 22.9 % (0.9-11.2); Lymphocytes Percent Auto 38.6 % (18.3-44.2); Mean Corpuscular HGB Conc 33.1 g/dl (32-36); Mean Corpuscular Hemoglobin 33.3 pg (26-34); Mean Corpuscular Volume 100.6 fl (80-100); Mean Platelet Volume 14.1 fl (7.4-10.4); Monocytes Absolute Auto 0.5 K/mm3 (0.1-0.6); Monocytes Percent Auto 9.1 % (2.6-8.5); Neutrophils Absolute Auto 2.6 K/mm3 (1.3-6.7); Neutrophils Percent Auto 43.1 % (45.5-73.1); Platelet Count Result 102 k/mm3 (150-375); Red Blood Count 3.09 M/mm3 (4.6-6.20)
[2024-01-05 06:06] LABS: Alanine Aminotransferase 14 U/L (6-50); Albumin Level 3.1 g/dL (3.5-5.1); Alkaline Phosphatase 71 U/L (38-126); Anion Gap 7 mmol/L (4-12); Aspartate Amino Transferase 22 U/L (17-59); Bilirubin,Total 0.3 mg/dL (0.2-1.3); Blood Urea Nitrogen 15 mg/dL (9-20); Calcium 8.8 mg/dL (8.4-10.2); Carbon Dioxide 27 mmol/L (22-30); Chloride 104 mmol/L (98-107); Estimated CRCL calculation 128 ml/min; Estimated Glomerular Filt Rate > 60; Glucose 89 mg/dL (65-110); Potassium 3.9 mmol/L (3.4-5.0); Sodium 138 mmol/L (137-145)
[2024-01-05] MEDS: VALPROIC ACID LIQ 250 MG/5 ML ORAL SOLUTION UDC 500 MG FEED TUBE ×4 (09:06→22:37)
[2024-01-05] MEDS: levETIRAcetam ORAL SOL 500 MG/5 ML UDC 2000 MG FEED TUBE ×2 (09:06→22:37)
[2024-01-05] MEDS: FOLIC ACID 1 MG TABLET FEED TUBE (09:07)
[2024-01-05] MEDS: METOPROLOL TARTRATE 25 MG TABLET FEED TUBE ×2 (09:07→22:38)
[2024-01-05] MEDS: ASPIRIN 81 MG CHEWABLE TABLET FEED TUBE (09:07)
[2024-01-05] MEDS: LACOSAMIDE (*CRX) 200 MG TABLET FEED TUBE ×2 (09:07→22:33)
[2024-01-05] MEDS: THIAMINE HCL 100 MG TABLET FEED TUBE (09:08)
[2024-01-05] MEDS: AZITHROMYCIN 250 MG TABLET 500 MG PO (09:08)
--- NOTE | 2024-01-05 10:57 | P.PNIM_ITS ---
Progress Note: A&P Assessment and Plan (1) Sepsis: Code(s): A41.9 - Sepsis, unspecified organism Status: Acute Assessment and Plan: 01/02/24: * Patient initially meeting sepsis criteria with a presenting heart rate of 124, respiratory rate of 27, white blood cell count 15.6, lactic acid 2.2, with probable source of infection being pneumonia * Blood cultures were obtained and are pending * CT of abdomen pelvis showed mucus plugging in the right lower lobe with airspace opacities in right lower lobe 01/03/24: * Heart rate in the 80s to 90s, respiratory rate 20 white blood cell count down to 9.5 * Will recheck lactic acid * Blood cultures are showing no growth on preliminary read * Sputum culture was unacceptable for culture we will repeat again today * Continue IV antibiotics 01/04/24: * Lactic acid 1.7 * Blood culture showing Gram-positive cocci in clusters in 1/2 vials which could likely be a contaminant * Continue IV antibiotics * Still awaiting sputum culture 01/05/24: * MRSA in 2/4 vials * Will change to per tube antibiotics today (2) Pneumonia: Qualifiers: Laterality: right Lung location: unspecified part of lung Pneumonia type: due to unspecified organism Qualified Code(s): J18.9 - Pneumonia, unspecified organism Code(s): J18.9 - Pneumonia, unspecified organism Status: Acute Assessment and Plan: 01/02/24: * Likely hospital-acquired pneumonia versus aspiration pneumonia * Patient was recently seen in the ER on 12/30/23 due to vomiting of tube feeding. Patient was discharged from the ER same day. * CT of the abdomen pelvis showed mucus plugging in the right lower lobe with airspace opacities in the right lower lobe * Chest CTA was negative for PE, showed extensive debris and/or fluid in the right mainstem bronchus and central right bronchial tree, minimal left pleural effusion * Chest x-ray shows small right pleural effusion with probable right basilar atelectasis and minimal bibasilar pulmonary edema * Patient started on vancomycin and cefepime, added azithromycin * He is MRSA positive * DuoNebs ordered q.6 hour * Will obtain sputum culture * Will check urine strep, urine Legionella, mycoplasma today * Chest PT order t.i.d. along with PeP therapy for the mucus plugging * Patient may require bronchoscopy and/or pulmonology consult 01/03/24: * Continue with current treatment plan 01/05/24: * Continue with IV vancomycin, will require for a total of 14 days * Repeat blood cultures today * Will switch to Augmentin and azithromycin per tube (3) Tracheostomy dependence: Code(s): Z93.0 - Tracheostomy status Status: Chronic Assessment and Plan: 01/02/24: * Size 6 Bivona [place] * Dislodged on admission and replaced well in the ED * Thick marie sputum noted * Continue trach care daily * Currently on trach collar 30 L 40% 01/03/24: * Continue weaning oxygen * Currently on 10 L and 30% 01/04/24: * Currently on 15 L and 25% * Continue to wean O2 01/05/24: * Currently on 15L and 21% * Continue to wean (4) Seizure disorder: Code(s): G40.909 - Epilepsy, unspecified, not intractable, without status epilepticus Status: Chronic Assessment and Plan: 01/02/24: * Will continue Keppra, Valproic acid, and Lacosamide 01/03/24: * No change to current treatment plan (5) Gastrojejunal tube present: Code(s): Z93.1 - Gastrostomy status Status: Acute Assessment and Plan: 01/02/24: * Continue tube feeding and tube feeding diet
--- NOTE | 2024-01-05 10:57 | PM.IMPN ---
Progress Note: A&P Assessment and Plan (1) Sepsis: Code(s): A41.9 - Sepsis, unspecified organism Status: Acute Assessment and Plan: 01/02/24: Patient initially meeting sepsis criteria with a presenting heart rate of 124, respiratory rate of 27, white blood cell count 15.6, lactic acid 2.2, with probable source of infection being pneumonia Blood cultures were obtained and are pending CT of abdomen pelvis showed mucus plugging in the right lower lobe with airspace opacities in right lower lobe 01/03/24: Heart rate in the 80s to 90s, respiratory rate 20 white blood cell count down to 9.5 Will recheck lactic acid Blood cultures are showing no growth on preliminary read Sputum culture was unacceptable for culture we will repeat again today Continue IV antibiotics 01/04/24: Lactic acid 1.7 Blood culture showing Gram-positive cocci in clusters in 1/2 vials which could likely be a contaminant Continue IV antibiotics Still awaiting sputum culture 01/05/24: MRSA in 2/4 vials Will change to per tube antibiotics today (2) Pneumonia: Qualifiers: Laterality: right Lung location: unspecified part of lung Pneumonia type: due to unspecified organism Qualified Code(s): J18.9 - Pneumonia, unspecified organism Code(s): J18.9 - Pneumonia, unspecified organism Status: Acute Assessment and Plan: 01/02/24: Likely hospital-acquired pneumonia versus aspiration pneumonia Patient was recently seen in the ER on 12/30/23 due to vomiting of tube feeding. Patient was discharged from the ER same day. CT of the abdomen pelvis showed mucus plugging in the right lower lobe with airspace opacities in the right lower lobe Chest CTA was negative for PE, showed extensive debris and/or fluid in the right mainstem bronchus and central right bronchial tree, minimal left pleural effusion Chest x-ray shows small right pleural effusion with probable right basilar atelectasis and minimal bibasilar pulmonary edema Patient started on vancomycin and cefepime, added azithromycin He is MRSA positive DuoNebs ordered q.6 hour Will obtain sputum culture Will check urine strep, urine Legionella, mycoplasma today Chest PT order t.i.d. along with PeP therapy for the mucus plugging Patient may require bronchoscopy and/or pulmonology consult 01/03/24: Continue with current treatment plan 01/05/24: Continue with IV vancomycin, will require for a total of 14 days Repeat blood cultures today Will switch to Augmentin and azithromycin per tube (3) Tracheostomy dependence: Code(s): Z93.0 - Tracheostomy status Status: Chronic Assessment and Plan: 01/02/24: Size 6 Bivona [place] Dislodged on admission and replaced well in the ED Thick marie sputum noted Continue trach care daily Currently on trach collar 30 L 40% 01/03/24: Continue weaning oxygen Currently on 10 L and 30% 01/04/24: Currently on 15 L and 25% Continue to wean O2 01/05/24: Currently on 15L and 21% Continue to wean (4) Seizure disorder: Code(s): G40.909 - Epilepsy, unspecified, not intractable, without status epilepticus Status: Chronic Assessment and Plan: 01/02/24: Will continue Keppra, Valproic acid, and Lacosamide 01/03/24: No change to current treatment plan (5) Gastrojejunal tube present: Code(s): Z93.1 - Gastrostomy status Status: Acute Assessment and Plan: 01/02/24: Continue tube feeding and tube feeding diet Home meds per tube 01/03/24: Tube feedings on hold as patient had nausea and vomiting again yesterday of his tube feed Will get CT scan today 01/04/24: CT of the abdomen pelvis today only showed small pleural effusion, 9 mm sclerotic lesion in the right parasymphyseal pubis as previously noted on other scans. Will start Reglan and tube feeds 01/05/24: Tolerating bolus feeds with use of Reglan. He had 2 bowel movements yesterday. We will increases to feed bolus to 200 ml
[2024-01-05] MEDS: AMOXICILLIN/CLAVULANATE K 875-125 MG TAB 1 TABLET PO ×2 (13:57→22:33)
[2024-01-05] MEDS: cloBAZam (*CRX) 10 MG TABLET FEED TUBE ×2 (13:57→22:33)
[2024-01-05] MEDS: FAMOTIDINE 20 MG TABLET FEED TUBE ×2 (13:57→22:33)
--- NOTE | 2024-01-05 15:30 | PC.NURSE ---
Updated sister Adriane on plan of care.
[2024-01-05 17:18] LABS: Adenovirus DNA Not Detected (Not Detected); Chlamydophila pneumoniae Not Detected (Not Detected); Coronavirus 229E Not Detected (Not Detected); Coronavirus HKU1 Not Detected (Not Detected); Coronavirus NL63 Not Detected (Not Detected); Coronavirus OC43 Not Detected (Not Detected); Human Metapneumovirus Not Detected (Not Detected); Human Parainfluenza Virus 1 Not Detected (Not Detected); Human Parainfluenza Virus 2 Not Detected (Not Detected); Human Parainfluenza Virus 3 Not Detected (Not Detected); Human Parainfluenza Virus 4 Not Detected (Not Detected); Human RSV B Not Detected (Not Detected); Influenza A Not Detected (Not Detected); Influenza B Not Detected (Not Detected); Mycoplasma pneumoniae Not Detected (Not Detected); Rhinovirus/Enterovirus Not Detected (Not Detected)
[2024-01-05] MEDS: VANCOMYCIN 1,250 MG/NS 250 ML 1,250 MG/250 ML BAG 167 MG IVPB (20:58)
[2024-01-05] MEDS: ATORVASTATIN 40 MG TABLET FEED TUBE (22:33)
[2024-01-06] VITALS (28 sets, daily range): BP systolic 115–165; BP diastolic 71–89; PULSE 69–117; RESP 16–20; TEMP 36.2–36.8; O2SAT 92–98
[2024-01-06] MEDS: IPRATROPIUM 0.5 MG/ALBUTEROL SULFATE 2.5 MG AMPUL.NEB 3 ML INHALATION ×4 (02:27→20:11)
[2024-01-06 06:25] LABS: Basophils Percent Auto 0.5 % (0.2-1.2); Eosinophils Absolute Auto 0.5 K/mm3 (0-0.3); Eosinophils Percent Auto 8.7 % (0-4.4); Hematocrit 30.5 % (42.0-52.0); Hemoglobin 9.9 g/dL (14.0-18.0); Immature Granulocyte Absolute 0.01 K/mm3 (0.00-0.031); Immature Granulocyte Percent A 0.2 % (0-0.5); Lymphocytes Absolute Auto 2.32 K/mm3 (0.9-3.2); Mean Corpuscular HGB Conc 32.5 g/dl (32-36); Mean Corpuscular Hemoglobin 32.8 pg (26-34); Mean Platelet Volume 12.3 fl (7.4-10.4); Monocytes Absolute Auto 0.6 K/mm3 (0.1-0.6); Monocytes Percent Auto 10.5 % (2.6-8.5); Neutrophils Absolute Auto 2.1 K/mm3 (1.3-6.7); Neutrophils Percent Auto 38.1 % (45.5-73.1); Platelet Count Result 158 k/mm3 (150-375); Red Blood Count 3.02 M/mm3 (4.6-6.20); Red Cell Distribution Width 14.2 % (11.5-14.5); White Blood Count 5.5 K/mm3 (4.5-10.0)
[2024-01-06 06:53] LABS: Alanine Aminotransferase 12 U/L (6-50); Albumin Level 2.9 g/dL (3.5-5.1); Alkaline Phosphatase 69 U/L (38-126); Anion Gap 5 mmol/L (4-12); Aspartate Amino Transferase 24 U/L (17-59); Bilirubin,Total 0.2 mg/dL (0.2-1.3); Blood Urea Nitrogen 11 mg/dL (9-20); Calcium 8.9 mg/dL (8.4-10.2); Carbon Dioxide 27 mmol/L (22-30); Chloride 107 mmol/L (98-107); Estimated CRCL calculation 108 ml/min; Estimated Glomerular Filt Rate > 60; Glucose 90 mg/dL (65-110); Potassium 3.9 mmol/L (3.4-5.0); Sodium 139 mmol/L (137-145)
[2024-01-06] MEDS: METOCLOPRAMIDE HCL 10 MG/10 ML SOLN UDC PO ×4 (06:57→21:35)
[2024-01-06] MEDS: guaiFENesin 200 MG/10 ML UDC 600 MG FEED TUBE ×4 (06:57→23:59)
[2024-01-06 07:07] LABS: Vancomycin Trough 20.2 ug/mL (10.0-20.0)
[2024-01-06] MEDS: levETIRAcetam ORAL SOL 500 MG/5 ML UDC 2000 MG FEED TUBE ×2 (09:05→21:35)
[2024-01-06] MEDS: THIAMINE HCL 100 MG TABLET FEED TUBE (09:06)
[2024-01-06] MEDS: AZITHROMYCIN 250 MG TABLET 500 MG PO (09:06)
[2024-01-06] MEDS: ENOXAPARIN 40 MG/0.4 ML SYRINGE SUB-Q (09:06)
[2024-01-06] MEDS: LACOSAMIDE (*CRX) 200 MG TABLET FEED TUBE ×2 (09:06→21:34)
[2024-01-06] MEDS: AMOXICILLIN/CLAVULANATE K 875-125 MG TAB 1 TABLET PO ×2 (09:06→21:32)
[2024-01-06] MEDS: FAMOTIDINE 20 MG TABLET FEED TUBE ×2 (09:06→21:33)
[2024-01-06] MEDS: cloBAZam (*CRX) 10 MG TABLET FEED TUBE ×2 (09:06→21:34)
[2024-01-06] MEDS: FOLIC ACID 1 MG TABLET FEED TUBE (09:06)
[2024-01-06] MEDS: VALPROIC ACID LIQ 250 MG/5 ML ORAL SOLUTION UDC 500 MG FEED TUBE ×4 (09:06→21:34)
[2024-01-06] MEDS: ASPIRIN 81 MG CHEWABLE TABLET FEED TUBE (09:06)
[2024-01-06] MEDS: METOPROLOL TARTRATE 25 MG TABLET FEED TUBE ×2 (09:06→21:33)
[2024-01-06] MEDS: VANCOMYCIN 1,250 MG/NS 250 ML 1,250 MG/250 ML BAG 166.67 MG IVPB ×2 (09:08→21:27)
--- NOTE | 2024-01-06 10:35 | P.PNIM_ITS ---
Progress Note: A&P Assessment and Plan (1) Sepsis: Code(s): A41.9 - Sepsis, unspecified organism Status: Acute Assessment and Plan: 01/02/24: * Patient initially meeting sepsis criteria with a presenting heart rate of 124, respiratory rate of 27, white blood cell count 15.6, lactic acid 2.2, with probable source of infection being pneumonia * Blood cultures were obtained and are pending * CT of abdomen pelvis showed mucus plugging in the right lower lobe with airspace opacities in right lower lobe 01/03/24: * Heart rate in the 80s to 90s, respiratory rate 20 white blood cell count down to 9.5 * Will recheck lactic acid * Blood cultures are showing no growth on preliminary read * Sputum culture was unacceptable for culture we will repeat again today * Continue IV antibiotics 01/04/24: * Lactic acid 1.7 * Blood culture showing Gram-positive cocci in clusters in 1/2 vials which could likely be a contaminant * Continue IV antibiotics * Still awaiting sputum culture 01/05/24: * MRSA in 2/4 vials * Will change to per tube antibiotics today 01/06/24: * Continue Azithromycin and Augmentin oral * Continue Vancomycin IV for MRSA Bacteremia * Order for PICC placement * Second set of blood cultures showing no growth to date (2) Pneumonia: Qualifiers: Laterality: right Lung location: unspecified part of lung Pneumonia type: due to unspecified organism Qualified Code(s): J18.9 - Pneumonia, unspecified organism Code(s): J18.9 - Pneumonia, unspecified organism Status: Acute Assessment and Plan: 01/02/24: * Likely hospital-acquired pneumonia versus aspiration pneumonia * Patient was recently seen in the ER on 12/30/23 due to vomiting of tube feeding. Patient was discharged from the ER same day. * CT of the abdomen pelvis showed mucus plugging in the right lower lobe with airspace opacities in the right lower lobe * Chest CTA was negative for PE, showed extensive debris and/or fluid in the right mainstem bronchus and central right bronchial tree, minimal left pleural effusion * Chest x-ray shows small right pleural effusion with probable right basilar atelectasis and minimal bibasilar pulmonary edema * Patient started on vancomycin and cefepime, added azithromycin * He is MRSA positive * DuoNebs ordered q.6 hour * Will obtain sputum culture * Will check urine strep, urine Legionella, mycoplasma today * Chest PT order t.i.d. along with PeP therapy for the mucus plugging * Patient may require bronchoscopy and/or pulmonology consult 01/03/24: * Continue with current treatment plan 01/05/24: * Continue with IV vancomycin, will require for a total of 14 days * Repeat blood cultures today * Will switch to Augmentin and azithromycin per tube 01/06/24: * Continue Augmentin and Azithromycin per tube * Repeat blood cultures showing no growth to date * Continue IV Vancomycin for MRSA Bacteremia (3) Tracheostomy dependence: Code(s): Z93.0 - Tracheostomy status Status: Chronic Assessment and Plan: 01/02/24: * Size 6 Bivona [place] * Dislodged on admission and replaced well in the ED * Thick marie sputum noted * Continue trach care daily * Currently on trach collar 30 L 40% 01/03/24: * Continue weaning oxygen * Currently on 10 L and 30% 01/04/24: * Currently on 15 L and 25% * Continue to wean O2 01/05/24: * Currently on 15L and 21% * Continue to wean 01/06/24: * No change to current treatment plan (4) Seizure disorder: Code(s): G40.909 - Epilepsy, unspecified, not i
--- NOTE | 2024-01-06 10:35 | PM.IMPN ---
Progress Note: A&P Assessment and Plan (1) Sepsis: Code(s): A41.9 - Sepsis, unspecified organism Status: Acute Assessment and Plan: 01/02/24: Patient initially meeting sepsis criteria with a presenting heart rate of 124, respiratory rate of 27, white blood cell count 15.6, lactic acid 2.2, with probable source of infection being pneumonia Blood cultures were obtained and are pending CT of abdomen pelvis showed mucus plugging in the right lower lobe with airspace opacities in right lower lobe 01/03/24: Heart rate in the 80s to 90s, respiratory rate 20 white blood cell count down to 9.5 Will recheck lactic acid Blood cultures are showing no growth on preliminary read Sputum culture was unacceptable for culture we will repeat again today Continue IV antibiotics 01/04/24: Lactic acid 1.7 Blood culture showing Gram-positive cocci in clusters in 1/2 vials which could likely be a contaminant Continue IV antibiotics Still awaiting sputum culture 01/05/24: MRSA in 2/4 vials Will change to per tube antibiotics today 01/06/24: Continue Azithromycin and Augmentin oral Continue Vancomycin IV for MRSA Bacteremia Order for PICC placement Second set of blood cultures showing no growth to date (2) Pneumonia: Qualifiers: Laterality: right Lung location: unspecified part of lung Pneumonia type: due to unspecified organism Qualified Code(s): J18.9 - Pneumonia, unspecified organism Code(s): J18.9 - Pneumonia, unspecified organism Status: Acute Assessment and Plan: 01/02/24: Likely hospital-acquired pneumonia versus aspiration pneumonia Patient was recently seen in the ER on 12/30/23 due to vomiting of tube feeding. Patient was discharged from the ER same day. CT of the abdomen pelvis showed mucus plugging in the right lower lobe with airspace opacities in the right lower lobe Chest CTA was negative for PE, showed extensive debris and/or fluid in the right mainstem bronchus and central right bronchial tree, minimal left pleural effusion Chest x-ray shows small right pleural effusion with probable right basilar atelectasis and minimal bibasilar pulmonary edema Patient started on vancomycin and cefepime, added azithromycin He is MRSA positive DuoNebs ordered q.6 hour Will obtain sputum culture Will check urine strep, urine Legionella, mycoplasma today Chest PT order t.i.d. along with PeP therapy for the mucus plugging Patient may require bronchoscopy and/or pulmonology consult 01/03/24: Continue with current treatment plan 01/05/24: Continue with IV vancomycin, will require for a total of 14 days Repeat blood cultures today Will switch to Augmentin and azithromycin per tube 01/06/24: Continue Augmentin and Azithromycin per tube Repeat blood cultures showing no growth to date Continue IV Vancomycin for MRSA Bacteremia (3) Tracheostomy dependence: Code(s): Z93.0 - Tracheostomy status Status: Chronic Assessment and Plan: 01/02/24: Size 6 Bivona [place] Dislodged on admission and replaced well in the ED Thick marie sputum noted Continue trach care daily Currently on trach collar 30 L 40% 01/03/24: Continue weaning oxygen Currently on 10 L and 30% 01/04/24: Currently on 15 L and 25% Continue to wean O2 01/05/24: Currently on 15L and 21% Continue to wean 01/06/24: No change to current treatment plan (4) Seizure disorder: Code(s): G40.909 - Epilepsy, unspecified, not intractable, without status epilepticus Status: Chronic Assessment and Plan: 01/02/24: Will continue Keppra, Valproic acid, and Lacosamide 01/03/24: No change to current treatment plan (5) Gastrojejunal tube present: Code(s): Z93.1 - Gastrostomy status Status: Acute Assessment and Plan: 01/02/24: Continue tube feeding and tube feeding diet Home meds per tube 01/03/24: Tube feedings on hold as patient had nausea and vomiting again yesterday
--- NOTE | 2024-01-06 13:41 | PCNFU ---
Nutrition Follow-Up Complete: Inability to meet nutrition needs PO related to chronic tracheostomy, dysphagia as evidenced by need for full tube feeding Goal: Meet estimated nutrition needs - Progressing. Pt advanced to goal bolus rate 275 ml QID today at lunch. Improve weight (may need to increase tube feeding rate) - Meeting goal. +8 kg since admission Pt current nutrition is Osmolite 1.5 bolus 275 ml QID with flushes 250 ml with each bolus. Nutrition recommendation: Advance to goal rate Osmolite 1.5 bolus 275 ml QID with flushes 250 ml QID. Prokinetics with Bolus. Elevate HOB for at least 30 minutes after each bolus. Last recorded weight is 73 kg. Bowel Motility: +1 BM 01/04 Labs Reviewed: Hgb 9.9, Hct 30.5, Alb 2.9, Cre 0.6 Meds Noted: Reglan, vancomycin Skin: L AKA healed; no pressure injuries Additional Notes: Pt tolerating tube feedings well. Previous regimen was Jevity 1.5 @ 50 ml/h continuous with flushes 250 ml QID, causing persistent nausea and vomiting. Current regimen: Bolus Osmolite 1.5 275 ml QID with flushes 250 ml QID. IV Reglan before each bolus. Monitoring weights, labs, tube feeding tolerance, plan of care Follow up Tuesdays and Fridays
--- NOTE | 2024-01-06 14:27 | VASCRN ---
Order received for:PICC Line After review of the chart and the patient assessment, patient is not a candidate for the following reason(s): recent blood cultures drawn after having positive blood cultures. Will need to wait until after 1300 on 01/07/24 to provide 48 hours for these blood cultures to result prior to placing the line. I will personally follow up with the patient and his blood cultures. Provider notified:
[2024-01-06] MEDS: ATORVASTATIN 40 MG TABLET FEED TUBE (21:33)
[2024-01-06 21:58] LABS: Pneumococcal Antigen Urine NOT DETECTED
[2024-01-07] VITALS (19 sets, daily range): BP systolic 114–132; BP diastolic 73–75; PULSE 85–121; RESP 18–32; TEMP 36.3–37; O2SAT 89–96
[2024-01-07] MEDS: IPRATROPIUM 0.5 MG/ALBUTEROL SULFATE 2.5 MG AMPUL.NEB 3 ML INHALATION ×3 (02:21→14:20)
[2024-01-07 04:24] LABS: Basophils Percent Auto 0.4 % (0.2-1.2); Eosinophils Absolute Auto 0.4 K/mm3 (0-0.3); Eosinophils Percent Auto 7.1 % (0-4.4); Hematocrit 31.4 % (42.0-52.0); Hemoglobin 10.2 g/dL (14.0-18.0); Immature Granulocyte Absolute 0.01 K/mm3 (0.00-0.031); Immature Granulocyte Percent A 0.2 % (0-0.5); Lymphocytes Absolute Auto 2.35 K/mm3 (0.9-3.2); Lymphocytes Percent Auto 41.6 % (18.3-44.2); Mean Corpuscular HGB Conc 32.5 g/dl (32-36); Mean Corpuscular Hemoglobin 32.7 pg (26-34); Mean Corpuscular Volume 100.6 fl (80-100); Monocytes Absolute Auto 0.5 K/mm3 (0.1-0.6); Monocytes Percent Auto 9.6 % (2.6-8.5); Neutrophils Absolute Auto 2.3 K/mm3 (1.3-6.7); Neutrophils Percent Auto 41.1 % (45.5-73.1); Platelet Count Result 167 k/mm3 (150-375); Red Blood Count 3.12 M/mm3 (4.6-6.20); Red Cell Distribution Width 14.3 % (11.5-14.5); White Blood Count 5.7 K/mm3 (4.5-10.0)
[2024-01-07 04:32] LABS: Alanine Aminotransferase 12 U/L (6-50); Albumin Level 2.9 g/dL (3.5-5.1); Alkaline Phosphatase 71 U/L (38-126); Anion Gap 6 mmol/L (4-12); Aspartate Amino Transferase 18 U/L (17-59); Bilirubin,Total 0.2 mg/dL (0.2-1.3); Blood Urea Nitrogen 11 mg/dL (9-20); Calcium 8.7 mg/dL (8.4-10.2); Carbon Dioxide 26 mmol/L (22-30); Chloride 109 mmol/L (98-107); Estimated CRCL calculation 128 ml/min; Estimated Glomerular Filt Rate > 60; Glucose 87 mg/dL (65-110); Sodium 141 mmol/L (137-145)
[2024-01-07] MEDS: METOCLOPRAMIDE HCL 10 MG/10 ML SOLN UDC PO ×2 (06:45→12:15)
[2024-01-07] MEDS: guaiFENesin 200 MG/10 ML UDC 600 MG FEED TUBE ×2 (06:45→12:15)
[2024-01-07] MEDS: VALPROIC ACID LIQ 250 MG/5 ML ORAL SOLUTION UDC 500 MG FEED TUBE ×2 (08:44→12:14)
[2024-01-07] MEDS: levETIRAcetam ORAL SOL 500 MG/5 ML UDC 2000 MG FEED TUBE (08:44)
[2024-01-07] MEDS: ENOXAPARIN 40 MG/0.4 ML SYRINGE SUB-Q (08:44)
[2024-01-07] MEDS: LACOSAMIDE (*CRX) 200 MG TABLET FEED TUBE (08:45)
[2024-01-07] MEDS: AMOXICILLIN/CLAVULANATE K 875-125 MG TAB 1 TABLET PO (08:45)
[2024-01-07] MEDS: THIAMINE HCL 100 MG TABLET FEED TUBE (08:45)
[2024-01-07] MEDS: ASPIRIN 81 MG CHEWABLE TABLET FEED TUBE (08:45)
[2024-01-07] MEDS: FOLIC ACID 1 MG TABLET FEED TUBE (08:45)
[2024-01-07] MEDS: cloBAZam (*CRX) 10 MG TABLET FEED TUBE (08:45)
[2024-01-07] MEDS: METOPROLOL TARTRATE 25 MG TABLET FEED TUBE (08:45)
[2024-01-07] MEDS: FAMOTIDINE 20 MG TABLET FEED TUBE (08:45)
[2024-01-07] MEDS: AZITHROMYCIN 250 MG TABLET 500 MG PO (08:45)
[2024-01-07] MEDS: VANCOMYCIN 1,250 MG/NS 250 ML 1,250 MG/250 ML BAG 166.67 MG IVPB (08:51)
--- NOTE | 2024-01-07 13:03 | PM.DS ---
DS: Admitting Diagnosis Discharge Date 01/07/24 Admitting Diagnosis Sepsis Hospital-acquired pneumonia Tracheostomy dependence Seizure disorder G-tube present DS: Discharge Diagnosis Discharge Diagnosis (1) Sepsis: Code(s): A41.9 - Sepsis, unspecified organism Status: Acute (2) Pneumonia: Qualifiers: Laterality: right Lung location: unspecified part of lung Pneumonia type: due to unspecified organism Qualified Code(s): J18.9 - Pneumonia, unspecified organism Code(s): J18.9 - Pneumonia, unspecified organism Status: Acute (3) Tracheostomy dependence: Code(s): Z93.0 - Tracheostomy status Status: Chronic (4) Seizure disorder: Code(s): G40.909 - Epilepsy, unspecified, not intractable, without status epilepticus Status: Chronic (5) Gastrojejunal tube present: Code(s): Z93.1 - Gastrostomy status Status: Acute DS: Summary Hospital Course Reason for hospitalization: Sepsis Hospital-acquired pneumonia Tracheostomy dependence Seizure disorder G-tube present Hospital Course: This is a 63-year-old male with a significant past medical history of BPH, CVA with left-sided weakness, COPD, seizures, vascular dementia, tracheostomy who presented to the hospital with complaints of shortness of breath/dyspnea requiring increased oxygen demand from [place]. Most of history of presenting illness was obtained from the EMR. He was able to answer some questions for me. He reports nausea and abdominal pain. Workup in the hospital and abdomen/pelvis CT which shown wall thickening of the esophagus likely esophagitis, mucus plugging and right lower lobe, airspace opacities in the right lower lobe, 9 mm sclerotic lesion in the right parasymphyseal pubis. CTA of the chest was negative for PE, extensive debris and/or fluid in the right mainstem bronchus and central right bronchial tree, minimal left pleural effusion. Chest x-ray today showed small right pleural effusion with probable right basilar atelectasis possible minimal bibasilar pulmonary edema, tracheostomy cannula. Initial labs showed a white blood cell count of 15.6, hemoglobin 13.0, platelet count 106, sodium 136, lactic acid 2.2, MRSA positive. Blood cultures were obtained and are pending. Patient was started on vancomycin and cefepime. Patient was started on Reglan and bolus tube feeding QID on 01/04/24. Tolerating goal bolus tube feeding and Reglan. Nausea and vomiting subsided and he is having bowel movements Cefepime changed to Augmentin. Blood cultures showing MRSA bacteremia. Second set of blood cultures showing no growth to date on preliminary read. He will need a total of 14 doses of IV Vancomycin PICC line placed 01/07/24 for IV Vancomycin Patient currently on 15 L/21% high humidity trach collar he is stable for discharge back to his facility today. He will need to finish a lives antibiotic as directed and then follow-up with primary care physician in 1 week. Final diagnosis: Sepsis, acute on chronic respiratory failure with hypoxia, hospital-acquired pneumonia, bacteremia Status at Discharge Cognitive/behavioral status at discharge: Alert and awake Functional status at discharge: bed bound Overall status at discharge: patient is progressing back to baseline Time Spent with Patient Time attestation: Total time spent providing and/or coordinating discharge services: Time spent: Greater than 30 minutes Exam Narrative: General: In no acute distress Cardiac: Normal S1 and S2. NSR 80's-90's No murmur, gallops or friction rubs, peripheral pulses intact. Respiratory: Lungs crackles invasive, no adventitious lung sounds, currently on 15L/ 21% Gastrointestinal: soft, slightly distended, generalized tenderness, normoactive bowel sounds. : Jensen catheter in place Neuro: Alert DS: Data Data Completed and Pending Completed studies during hospitalization: Abdomen/pelvis CT x2 Chest x-ray Chest CTA
[2024-01-07] MEDS: LIDOCAINE HCL 1% PF INJ 5 ML VIAL INFILTRATE (13:15)
== END 2024-01-07 15:15 | DRG 720 ==
LOC: ANHED 06:39 → ANHIMU 07:55
PROVIDERS: Student in an Organized Health Care Education/Training Program; Admitting Provider Internal Medicine; Emergency Provider Emergency Medicine; PCP Internal Medicine; Visit Provider Nurse Practitioner Acute Care
DX: A41.9 Sepsis, unspecified organism (principal); J18.9 Pneumonia, unspecified organism; G40.909 Epilepsy, unspecified, not intractable, without status epilepticus; B95.62 Methicillin resistant Staphylococcus aureus infection as the cause of diseases classified elsewhere; J44.0 Chronic obstructive pulmonary disease with (acute) lower respiratory infection; F01.50 Vascular dementia, unspecified severity, without behavioral disturbance, psychotic disturbance, mood disturbance, and anxiety; J90 Pleural effusion, not elsewhere classified; N40.0 Benign prostatic hyperplasia without lower urinary tract symptoms; D50.9 Iron deficiency anemia, unspecified; Z93.0 Tracheostomy status; Z93.1 Gastrostomy status; I69.354 Hemiplegia and hemiparesis following cerebral infarction affecting left non-dominant side; Z79.82 Long term (current) use of aspirin; I69.320 Aphasia following cerebral infarction; I69.391 Dysphagia following cerebral infarction; R13.10 Dysphagia, unspecified; Z86.718 Personal history of other venous thrombosis and embolism; Z89.612 Acquired absence of left leg above knee
CPT/HCPCS: 36415; 36569; 36600; 71045; 71275; 74177; 80053; 80202; 82805; 82948; 83605; 84484; 85025; 85055; 86738; 87040; 87070; 87077; 87181; 87205; 87633; 87641; 87899; 93005; 94640; 94667; 94668; 96365; 96367; 96375; 99285; A4629; A9270; G0378; G0379; J0692; J1650; J3370; Q9967

== ENCOUNTER 2024-01-07 22:46 | Emergency (ER) | payer OTHER, SELFPAY ==
--- NOTE | ~2024-01-07 | XR_ITS ---
EXAMINATION: XR abdomen gastric tube rechec DATE: 01/07/2024 23:16 INDICATION: Gastrostomy tube placement. TECHNIQUE: A supine view of the abdomen on 2 radiographs was obtained. COMPARISON: Abdomen radiographs 12/21/2023 FINDINGS: There are no dilated loops of bowel. There is a gastrostomy tube in expected position. Ther e is contrast in the stomach and proximal small bowel. IMPRESSION: 1. Gastrostomy tube in expected position. Reviewed, dictated and finalized at location E.
--- NOTE | ~2024-01-07 | XR_ITS ---
EXAMINATION: XR chest 1V portable DATE: 01/07/2024 23:16 INDICATION: Central line placement. Aspiration. TECHNIQUE: A single frontal view of the chest was obtained on 2 radiographs. COMPARISON: Chest single view 01/07/2024, CT abdomen and pelvis 11/04/2023 FINDINGS: There are airspace opacities in the right mid and lower lung zones and left lower lung zone . No pleural effusion or pneumothorax. The heart size is normal. There are prominent pericardial fat pads. There is a tracheostomy tube in expected position. A right upper extremity peripherally inserte d central venous catheter (PICC) is seen with tip in the superior vena cava. IMPRESSION: 1. Stable airspace opacities in the right mid and lower lung zones and left lung zone, consistent wit h atelectasis versus pneumonia. 2. PICC tip in the superior vena cava. Reviewed, dictated and finalized at location E. IMPRESSION: 1. Stable airspace opacities in the right mid and lower lung zones and left viral g zone, consistent with atelectasis versus pneumonia. 2. PICC tip in the superior vena cava.
[2024-01-07 23:02] LABS: Basophils Percent Auto 0.5 % (0.2-1.2); Eosinophils Absolute Auto 0.3 K/mm3 (0-0.3); Eosinophils Percent Auto 4.9 % (0-4.4); Hematocrit 33.7 % (42.0-52.0); Hemoglobin 11.1 g/dL (14.0-18.0); Immature Granulocyte Absolute 0.02 K/mm3 (0.00-0.031); Immature Granulocyte Percent A 0.3 % (0-0.5); Lymphocytes Percent Auto 32.6 % (18.3-44.2); Mean Corpuscular HGB Conc 32.9 g/dl (32-36); Mean Corpuscular Volume 100.3 fl (80-100); Mean Platelet Volume 11.6 fl (7.4-10.4); Monocytes Absolute Auto 0.6 K/mm3 (0.1-0.6); Monocytes Percent Auto 9.6 % (2.6-8.5); Neutrophils Absolute Auto 3.2 K/mm3 (1.3-6.7); Neutrophils Percent Auto 52.1 % (45.5-73.1); Platelet Count Result 192 k/mm3 (150-375); Red Blood Count 3.36 M/mm3 (4.6-6.20); Red Cell Distribution Width 14.5 % (11.5-14.5); White Blood Count 6.1 K/mm3 (4.5-10.0)
[2024-01-07 23:04] VITALS: BP 157/89; PULSE 90; RESP 26; TEMP 36.7; O2SAT 100
[2024-01-07 23:04] LABS: Sodium 142 mmol/L (137-145)
[2024-01-07 23:05] LABS: Anion Gap 8 mmol/L (4-12); Blood Urea Nitrogen 11 mg/dL (9-20); Carbon Dioxide 28 mmol/L (22-30); Chloride 106 mmol/L (98-107); Estimated Glomerular Filt Rate > 60; Glucose 107 mg/dL (65-110)
[2024-01-07 23:06] LABS: Alanine Aminotransferase 12 U/L (6-50); Albumin Level 3.3 g/dL (3.5-5.1); Alkaline Phosphatase 83 U/L (38-126); Aspartate Amino Transferase 18 U/L (17-59); Bilirubin,Total 0.2 mg/dL (0.2-1.3); Total Protein 6.9 g/dL (6.3-8.2)
[2024-01-07 23:07] LABS: Lipase 78 U/L (23-300)
[2024-01-07] MEDS: IPRATROPIUM 0.5 MG/ALBUTEROL SULFATE 2.5 MG AMPUL.NEB 3 ML INHALATION (23:09)
[2024-01-07 23:13] VITALS: PULSE 91; RESP 23
[2024-01-07 23:15] VITALS: O2SAT 95
[2024-01-07 23:23] VITALS: PULSE 95; RESP 23
[2024-01-07] MEDS: ONDANSETRON INJ 4 MG/2 ML VIAL IV PUSH (23:43)
[2024-01-07] MEDS: PANTOPRAZOLE SODIUM IV 40 MG VIAL IV PUSH (23:43)
[2024-01-08 01:31] VITALS: BP 134/78; PULSE 88; RESP 22; O2SAT 94
[2024-01-08 03:27] VITALS: BP 121/79; PULSE 96; RESP 18; O2SAT 94
--- NOTE | 2024-01-08 05:20 | ED.NAVMDI ---
HPI - Nausea/Vomiting/Diarrhea General Chief complaint: Nausea/Vomiting/Diarrhea Stated complaint: N/V/D History of Present Illness HPI Narrative: Patient who is trach dependent, with recent PEG tube placement, had been getting PEG tube feeding when he suddenly vomited and possibly aspirated. Related Data Home Medications Medication Instructions Recorded Confirmed atorvastatin 40 mg tablet 40 mg feeding tube QHS 11/14/22 01/02/24 folic acid 1 mg tablet 1 mg feeding tube DAILY 11/14/22 01/02/24 lacosamide 200 mg tablet 200 mg feeding tube Q12H 11/14/22 01/02/24 aspirin 81 mg chewable tablet 81 mg feeding tube DAILY 11/15/22 01/02/24 metoprolol tartrate 25 mg tablet 25 mg feeding tube Q12H 12/18/22 01/02/24 polyethylene glycol 3350 17 17 g feeding tube Q12H Constipation 12/18/22 01/02/24 gram/dose oral powder bisacodyl 10 mg rectal suppository 10 mg RECTAL DAILY PRN Constipation 02/11/23 01/02/24 sennosides 8.6 mg tablet (senna) 8.6 mg feeding tube HS PRN 02/11/23 01/02/24 Constipation thiamine HCl (vitamin B1) 100 mg 100 mg feeding tube DAILY 02/11/23 01/02/24 tablet famotidine 20 mg tablet 20 mg feeding tube Q12H 03/21/23 01/02/24 levetiracetam 100 mg/mL oral 2,000 mg feeding tube Q12H 03/21/23 01/02/24 solution (Keppra) peg [id number] 1 1 drp EACH EYE 4-6XD PRN Dry Eyes 03/21/23 01/02/24 %-0.2 %-0.2 % eye drops (Artificial Tears ([id number])) valproic acid (as sodium salt) 250 500 mg PO QID 03/21/23 01/02/24 mg/5 mL oral solution calcium carbonate 500 mg/5 mL (as 1,250 mg feeding tube Q6H PRN 07/08/23 01/02/24 calcium carb 1,250 mg/5 mL) oral Heartburn suspension guaifenesin 100 mg/5 mL oral liquid 600 mg feeding tube Q6HR 07/08/23 01/02/24 ipratropium 0.5 mg-albuterol 3 mg 3 ml inhalation Q4H PRN Shortness 07/08/23 01/02/24 (2.5 mg base)/3 mL nebulization Of Breath soln magnesium citrate 300 ml PO DAILY PRN Constipation 07/08/23 01/02/24 ibuprofen 200 mg tablet 600 mg feeding tube Q4H PRN Pain 12/13/23 01/02/24 lanolin alcohols-mineral 1 applic topical Q12H 12/13/23 01/02/24 oil-w.petrolatum-ceresin topical cream (Minerin Creme topical) magnesium hydroxide 400 mg/5 mL 30 ml feeding tube HS PRN 12/13/23 01/02/24 oral suspension (Milk of Magnesia) Constipation acetaminophen 650 mg tablet 650 mg PO Q4H PRN general 01/02/24 01/02/24 discomfort clobazam 2.5 mg/mL oral suspension 10 mg feeding tube Q12H 01/02/24 01/02/24 ketoconazole 2 % shampoo See Rx Instructions .Route .COMPLEX 01/02/24 01/02/24 lactose-reduced food with fiber 1 ea feeding tube DAILY 01/02/24 01/02/24 0.06 gram-1.5 kcal/mL oral liquid (Jevity 1.5 Bruno) sodium chloride 7 % for 1 inh inhalation TID 01/02/24 01/02/24 nebulization sodium phosphates 19 gram-7 197 ml RECTAL ONCE PRN Constipation 01/02/24 01/02/24 gram/197 mL enema Allergies Allergy/AdvReac Type Severity Reaction Status Date / Time clonazepam Allergy Unknown Unknown Verified 12/23/23 11:27 Review of Systems Review of Systems: All systems reviewed & are unremarkable except as noted in HPI and below PMFSH Past Medical History Medical History Benign prostatic hyperplasia Cerebrovascular accident Residual expressive aphasia, dysphagia, and left-sided weakness. Chronic obstructive pulmonary disease Deep venous thrombosis of upper extremity Esophageal diverticulum Gastroparesis Iron deficiency anemia Seizure disorder Vascular dementia with psychotic disturbance Surgical History Surgical History History of gastrostomy tube placement History of left above knee amputation History of tracheostomy Family History Family History Other Unknown family medical history Social History Social History S
[2024-01-08 05:57] VITALS: BP 130/82; PULSE 90; RESP 18; O2SAT 94
--- NOTE | 2024-01-08 06:01 | PC.NURSE ---
Report received from ALFRED Feliciano. Assumed care of patient at this time. Patient waiting for EMS to to take him back to the [place].
[2024-01-08 07:17] VITALS: BP 136/88; PULSE 92; RESP 20; O2SAT 94
[2024-01-08 10:14] VITALS: BP 144/81; PULSE 81; RESP 20; O2SAT 100
== END 2024-01-08 09:30 ==
PROVIDERS: Emergency Provider Emergency Medicine; PCP Internal Medicine
DX: R11.2 Nausea with vomiting, unspecified (principal); Z86.73 Personal history of transient ischemic attack (TIA), and cerebral infarction without residual deficits
CPT/HCPCS: 36415; 71045; 80053; 83690; 85025; 94640; 96374; 96375; 99284; J2405; J2470

== ENCOUNTER 2024-01-26 05:00 | Emergency (ER) | payer OTHER, SELFPAY ==
[2024-01-26 05:07] VITALS: BP 166/87; PULSE 72; RESP 15; TEMP 36.6; O2SAT 100
[2024-01-26 05:14] VITALS: RESP 15; O2SAT 100
--- NOTE | 2024-01-26 05:21 | ED.GENADULT ---
HPI - General Adult General Chief complaint: Unspecified Stated complaint: PULLED OUT TRACH - REPLACED BY EMS Time Seen by Provider: 01/26/24 05:17 History of Present Illness HPI narrative: Patient is a 64-year-old male who presents to the emergency department this evening for evaluation of his trach. EMS got called to patient's retirement after he pulled out his trach. Upon their arrival, they did successfully replace his trach. Patient was satting in the low 90s after pulling a history can after EMS replaced it he was satting in the upper 90s. Patient is alert and oriented to person which is his baseline. Patient requested to be brought into the emergency department for evaluation despite his trach being placed. When asked if he has any symptoms including any chest pain, shortness of breath, nausea, vomiting, abdominal pain, dysuria or hematuria patient states no to all these symptoms. When asked if he is any pain patient states no. No additional symptoms or concerns at this time. Related Data Home Medications Medication Instructions Recorded Confirmed atorvastatin 40 mg tablet 40 mg feeding tube QHS 11/14/22 01/02/24 folic acid 1 mg tablet 1 mg feeding tube DAILY 11/14/22 01/02/24 lacosamide 200 mg tablet 200 mg feeding tube Q12H 11/14/22 01/02/24 aspirin 81 mg chewable tablet 81 mg feeding tube DAILY 11/15/22 01/02/24 metoprolol tartrate 25 mg tablet 25 mg feeding tube Q12H 12/18/22 01/02/24 polyethylene glycol 3350 17 17 g feeding tube Q12H Constipation 12/18/22 01/02/24 gram/dose oral powder bisacodyl 10 mg rectal suppository 10 mg RECTAL DAILY PRN Constipation 02/11/23 01/02/24 sennosides 8.6 mg tablet (senna) 8.6 mg feeding tube HS PRN 02/11/23 01/02/24 Constipation thiamine HCl (vitamin B1) 100 mg 100 mg feeding tube DAILY 02/11/23 01/02/24 tablet famotidine 20 mg tablet 20 mg feeding tube Q12H 03/21/23 01/02/24 levetiracetam 100 mg/mL oral 2,000 mg feeding tube Q12H 03/21/23 01/02/24 solution (Keppra) peg [id number] 1 1 drp EACH EYE 4-6XD PRN Dry Eyes 03/21/23 01/02/24 %-0.2 %-0.2 % eye drops (Artificial Tears ([id number])) valproic acid (as sodium salt) 250 500 mg PO QID 03/21/23 01/02/24 mg/5 mL oral solution calcium carbonate 500 mg/5 mL (as 1,250 mg feeding tube Q6H PRN 07/08/23 01/02/24 calcium carb 1,250 mg/5 mL) oral Heartburn suspension guaifenesin 100 mg/5 mL oral liquid 600 mg feeding tube Q6HR 07/08/23 01/02/24 ipratropium 0.5 mg-albuterol 3 mg 3 ml inhalation Q4H PRN Shortness 07/08/23 01/02/24 (2.5 mg base)/3 mL nebulization Of Breath soln magnesium citrate 300 ml PO DAILY PRN Constipation 07/08/23 01/02/24 ibuprofen 200 mg tablet 600 mg feeding tube Q4H PRN Pain 12/13/23 01/02/24 lanolin alcohols-mineral 1 applic topical Q12H 12/13/23 01/02/24 oil-w.petrolatum-ceresin topical cream (Minerin Creme topical) magnesium hydroxide 400 mg/5 mL 30 ml feeding tube HS PRN 12/13/23 01/02/24 oral suspension (Milk of Magnesia) Constipation acetaminophen 650 mg tablet 650 mg PO Q4H PRN general 01/02/24 01/02/24 discomfort clobazam 2.5 mg/mL oral suspension 10 mg feeding tube Q12H 01/02/24 01/02/24 ketoconazole 2 % shampoo See Rx Instructions .Route .COMPLEX 01/02/24 01/02/24 lactose-reduced food with fiber 1 ea feeding tube DAILY 01/02/24 01/02/24 0.06 gram-1.5 kcal/mL oral liquid (Jevity 1.5 Bruno) sodium chloride 7 % for 1 inh inhalation TID 01/02/24 01/02/24 nebulization sodium phosphates 19 gram-7 197 ml RECTAL ONCE PRN Constipation 01/02/24 01/02/24 gram/197 mL enema Allergies Allergy/AdvReac Type Severity Reaction Status Date / Time clonazepam Allergy Unknown Unknown Verified 12/23/23 11:27 Review of Systems Review of Systems: All systems are reviewed and are negative unless stated otherwise in the HPI. [facility] Past Medical History Medical History Benign prostatic hype
== END 2024-01-26 05:40 ==
LOC: ANHED 05:26
PROVIDERS: Emergency Provider Emergency Medicine; PCP Internal Medicine
DX: F01.50 Vascular dementia, unspecified severity, without behavioral disturbance, psychotic disturbance, mood disturbance, and anxiety (principal); J44.9 Chronic obstructive pulmonary disease, unspecified; I69.920 Aphasia following unspecified cerebrovascular disease; I69.921 Dysphasia following unspecified cerebrovascular disease; I69.954 Hemiplegia and hemiparesis following unspecified cerebrovascular disease affecting left non-dominant side; G40.909 Epilepsy, unspecified, not intractable, without status epilepticus; K31.84 Gastroparesis; D50.9 Iron deficiency anemia, unspecified; N40.0 Benign prostatic hyperplasia without lower urinary tract symptoms; Z86.718 Personal history of other venous thrombosis and embolism; Z89.612 Acquired absence of left leg above knee; Z79.82 Long term (current) use of aspirin; Z79.899 Other long term (current) drug therapy
CPT/HCPCS: 99282

== ENCOUNTER 2024-02-08 02:54 | Emergency (ER) | payer OTHER, SELFPAY ==
[2024-02-08 02:57] VITALS: BP 160/94; PULSE 87; RESP 20; TEMP 36.7; O2SAT 100
--- NOTE | 2024-02-08 03:05 | ECG_ITS ---
Test Date: 2024-02-08 03:08:23 Measurements Intervals [place] Rate: 95 P: 65 TX: 158 QRS: -21 QRSD: 80 T: 81 QT: 309 QTc: 390 Interpretive Statements SINUS RHYTHM ANTEROSEPTAL INFARCT, AGE INDETERMINATE CONSIDER INFERIOR INFARCT, AGE INDETERMINATE BORDERLINE ST-T WAVE ABNORMALITY- ANTEROLAT/HIGH LAT LEADS BASELINE ARTIFACT- V1-V2, V4-V5 ABNORMAL ECG Compared to ECG 01/02/2024 03:05:23 HEART RATE HAS DECREASED Electronically Signed On 02-08-2024 06:11:57 CDT by Dave Hernandez D.O.
[2024-02-08 03:11] VITALS: BP 160/94; PULSE 83; RESP 20; O2SAT 100
[2024-02-08 03:12] VITALS: O2SAT 100
[2024-02-08 03:14] VITALS: PULSE 83
--- NOTE | 2024-02-08 03:36 | ED.SEIZURE ---
HPI - Seizure General Chief Complaint: Seizure Stated Complaint: ? SZ PER FACILITY STAFF Time Seen by Provider: 02/08/24 03:34 History of Present Illness HPI Narrative: 64-year-old male presenting from skilled care facility. He has a history of chronic indwelling Jensen catheter, G-tube and trach dependence, epilepsy, CVA, TBI, vascular dementia. He presents today from his retirement facility for concerns that he might have had a seizure. They noticed that patient had some gaze deviation preference for several seconds but no tonic clonic shaking or loss of consciousness. They called EMS for assistance. Patient presently is awake and alert at his baseline mentation. He follows simple commands with no focal new deficits. No signs of trauma. He otherwise appears in his normal state of health. Patient is well known to this emergency department. No missed medication dosages per EMS report. EMR reviewed reveals lacosamide and Keppra for seizure prophylaxis. Seizure History: Yes Related Data Home Medications Medication Instructions Recorded Confirmed atorvastatin 40 mg tablet 40 mg feeding tube QHS 11/14/22 01/02/24 folic acid 1 mg tablet 1 mg feeding tube DAILY 11/14/22 01/02/24 lacosamide 200 mg tablet 200 mg feeding tube Q12H 11/14/22 01/02/24 aspirin 81 mg chewable tablet 81 mg feeding tube DAILY 11/15/22 01/02/24 metoprolol tartrate 25 mg tablet 25 mg feeding tube Q12H 12/18/22 01/02/24 polyethylene glycol 3350 17 17 g feeding tube Q12H Constipation 12/18/22 01/02/24 gram/dose oral powder bisacodyl 10 mg rectal suppository 10 mg RECTAL DAILY PRN Constipation 02/11/23 01/02/24 sennosides 8.6 mg tablet (senna) 8.6 mg feeding tube HS PRN 02/11/23 01/02/24 Constipation thiamine HCl (vitamin B1) 100 mg 100 mg feeding tube DAILY 02/11/23 01/02/24 tablet famotidine 20 mg tablet 20 mg feeding tube Q12H 03/21/23 01/02/24 levetiracetam 100 mg/mL oral 2,000 mg feeding tube Q12H 03/21/23 01/02/24 solution (Keppra) peg [id number] 1 1 drp EACH EYE 4-6XD PRN Dry Eyes 03/21/23 01/02/24 %-0.2 %-0.2 % eye drops (Artificial Tears ([id number])) valproic acid (as sodium salt) 250 500 mg PO QID 03/21/23 01/02/24 mg/5 mL oral solution calcium carbonate 500 mg/5 mL (as 1,250 mg feeding tube Q6H PRN 07/08/23 01/02/24 calcium carb 1,250 mg/5 mL) oral Heartburn suspension guaifenesin 100 mg/5 mL oral liquid 600 mg feeding tube Q6HR 07/08/23 01/02/24 ipratropium 0.5 mg-albuterol 3 mg 3 ml inhalation Q4H PRN Shortness 07/08/23 01/02/24 (2.5 mg base)/3 mL nebulization Of Breath soln magnesium citrate 300 ml PO DAILY PRN Constipation 07/08/23 01/02/24 ibuprofen 200 mg tablet 600 mg feeding tube Q4H PRN Pain 12/13/23 01/02/24 lanolin alcohols-mineral 1 applic topical Q12H 12/13/23 01/02/24 oil-w.petrolatum-ceresin topical cream (Minerin Creme topical) magnesium hydroxide 400 mg/5 mL 30 ml feeding tube HS PRN 12/13/23 01/02/24 oral suspension (Milk of Magnesia) Constipation acetaminophen 650 mg tablet 650 mg PO Q4H PRN general 01/02/24 01/02/24 discomfort clobazam 2.5 mg/mL oral suspension 10 mg feeding tube Q12H 01/02/24 01/02/24 ketoconazole 2 % shampoo See Rx Instructions .Route .COMPLEX 01/02/24 01/02/24 lactose-reduced food with fiber 1 ea feeding tube DAILY 01/02/24 01/02/24 0.06 gram-1.5 kcal/mL oral liquid (Jevity 1.5 Bruno) sodium chloride 7 % for 1 inh inhalation TID 01/02/24 01/02/24 nebulization sodium phosphates 19 gram-7 197 ml RECTAL ONCE PRN Constipation 01/02/24 01/02/24 gram/197 mL enema Allergies Allergy/AdvReac Type Severity Reaction Status Date / Time clonazepam Allergy Unknown Unknown Verified 12/23/23 11:27 Review of Systems Review of Systems: ROS unobtainable: Yes unobtainable due to medical condition PMFSH Past Medical History Medical History Benign prostatic hyperplasia Cerebrovascul
[2024-02-08 05:16] VITALS: BP 163/93; PULSE 82; RESP 20; O2SAT 100
[2024-02-08 05:53] LABS: Basophils Percent Auto 0.4 % (0.2-1.2); Eosinophils Absolute Auto 0.4 K/mm3 (0-0.3); Eosinophils Percent Auto 4.6 % (0-4.4); Hematocrit 43.1 % (42.0-52.0); Hemoglobin 14.3 g/dL (14.0-18.0); Immature Granulocyte Absolute 0.02 K/mm3 (0.00-0.031); Immature Granulocyte Percent A 0.3 % (0-0.5); Immature Platelet Fraction Pct 18.1 % (0.9-11.2); Lymphocytes Absolute Auto 2.43 K/mm3 (0.9-3.2); Lymphocytes Percent Auto 31.4 % (18.3-44.2); Mean Corpuscular HGB Conc 33.2 g/dl (32-36); Mean Corpuscular Hemoglobin 33.5 pg (26-34); Mean Corpuscular Volume 100.9 fl (80-100); Mean Platelet Volume 13.5 fl (7.4-10.4); Monocytes Absolute Auto 0.5 K/mm3 (0.1-0.6); Monocytes Percent Auto 6.5 % (2.6-8.5); Neutrophils Absolute Auto 4.4 K/mm3 (1.3-6.7); Neutrophils Percent Auto 56.8 % (45.5-73.1); Platelet Count Result 129 k/mm3 (150-375); Red Blood Count 4.27 M/mm3 (4.6-6.20); Red Cell Distribution Width 13.1 % (11.5-14.5); White Blood Count 7.8 K/mm3 (4.5-10.0)
[2024-02-08 06:03] LABS: Anion Gap 9 mmol/L (4-12); Blood Urea Nitrogen 13 mg/dL (9-20); Calcium 9.5 mg/dL (8.4-10.2); Carbon Dioxide 26 mmol/L (22-30); Chloride 102 mmol/L (98-107); Estimated Glomerular Filt Rate > 60; Glucose 95 mg/dL (65-110); Potassium 4.8 mmol/L (3.4-5.0); Sodium 137 mmol/L (137-145)
== END 2024-02-08 06:28 ==
PROVIDERS: Emergency Provider Student in an Organized Health Care Education/Training Program; PCP Internal Medicine
DX: G40.909 Epilepsy, unspecified, not intractable, without status epilepticus (principal); I69.320 Aphasia following cerebral infarction; I69.391 Dysphagia following cerebral infarction; I69.354 Hemiplegia and hemiparesis following cerebral infarction affecting left non-dominant side; R13.10 Dysphagia, unspecified; Z86.718 Personal history of other venous thrombosis and embolism; Z79.82 Long term (current) use of aspirin; J44.9 Chronic obstructive pulmonary disease, unspecified
CPT/HCPCS: 36415; 80048; 83735; 85025; 85055; 93005; 99284

== ENCOUNTER 2024-02-08 15:00 | Inpatient (IN) | payer OTHER, SELFPAY ==
[2024-02-08] VITALS (7 sets, daily range): BP systolic 114–171; BP diastolic 72–98; PULSE 75–142; RESP 16–24; TEMP 36.4–36.8; O2SAT 92–99
--- NOTE | ~2024-02-08 | XR_ITS ---
EXAMINATION: XR chest 1V portable DATE: 02/14/2024 13:40 INDICATION: Fever. TECHNIQUE: A single frontal view of the chest was obtained. COMPARISON: Chest single view 02/08/2024 FINDINGS: There is complete opacification of right hemithorax with volume loss. No left-sided pleural effusion. No pneumothorax. The heart size is normal. There is a tracheostomy tube in expected positi on. IMPRESSION: 1. Near complete opacification of right hemithorax with volume loss, likely atelectasis from mucous p lugging. Reviewed, dictated and finalized at location A. IMPRESSION: 1. Near complete opacification of right hemithorax with volume loss, likely ate lectasis from mucous plugging.
--- NOTE | ~2024-02-08 | XR_ITS ---
Portable chest x-ray Comparison: 02/15/2024 Clinical History: Mucous plug Findings: Tracheostomy cannula present. There is hazy/patchy bibasilar airspace disease. Suspected m inimal pleural effusions. Cardiomediastinal silhouette is stable. Bones and soft tissues are unremar kable. Impression: Probable mild bibasilar pulmonary edema/atelectasis with minimal pleural effusions. Correlate clinica lly for infection. Tracheostomy cannula. Reviewed, dictated and finalized at location . Impression: Probable mild bibasilar pulmonary edema/atelectasis with minimal pleural effusi ons. Correlate clinically for infection. Tracheostomy cannula.
--- NOTE | ~2024-02-08 | XR_ITS ---
EXAMINATION: XR chest 1V portable DATE: 02/15/2024 12:56 INDICATION: Mucous plugging. TECHNIQUE: A single frontal view of the chest was obtained. COMPARISON: Chest single view 02/14/2024 FINDINGS: There are airspace opacities in right mid and lower lung zones and left lower lung zone. No pleural effusion or pneumothorax. The heart size is normal. A tracheostomy tube is noted. IMPRESSION: 1. Airspace opacities in right mid and lower lung zones and left lower lung zone with improvement on the right, consistent with atelectasis versus pneumonia. Reviewed, dictated and finalized at location A. IMPRESSION: 1. Airspace opacities in right mid and lower lung zones and left lower lung zon e with improvement on the right, consistent with atelectasis versus pneumonia.
--- NOTE | ~2024-02-08 | XR_ITS ---
XR chest 1V portable Ordering provider: Elmo Zhu MD History: 64 years Male with . seizure . Comparison: January 07, 2024 FINDINGS: MEDIASTINUM: The cardiac silhouette is not enlarged. Tracheostomy tube unchanged. LUNGS: No infiltrates, effusions or pneumothorax. OTHER: No free air under the diaphragm. Degenerative changes of the spine. IMPRESSION: No acute cardiopulmonary pathology. Reviewed, dictated and finalized at location A.
--- NOTE | ~2024-02-08 | CT_ITS ---
EXAMINATION: CT brain wo con DATE: 02/10/2024 12:08 INDICATION: Seizure activity. TECHNIQUE: Computed tomography (CT) of the head was performed without intravenous contrast. The mA wa s adjusted according to patient size. Iterative reconstruction technique was employed. The dose-lengt h product was 605.33 mGy-cm. COMPARISON: Head CT 08/04/23 FINDINGS: There are old infarcts involving the bilateral thalami and left basal ganglia. There is an old infarct in right occipital lobe. There are scattered areas of low attenuation in the cerebral whi te matter. There is no intracranial hemorrhage, acute infarction, or abnormal intracranial mass lesio n. The ventricles are normal in size. There is mucosal thickening in the paranasal sinuses. There is an old blowout fracture of medial wall left orbit. There is a trace right mastoid effusion. IMPRESSION: 1. Old infarcts involving the thalami, left basal ganglia, and right occipital lobe. 2. Stable moderate nonspecific cerebral white matter disease, which likely represents chronic small v essel ischemic disease. Reviewed, dictated and finalized at location A. IMPRESSION: 1. Old infarcts involving the thalami, left basal ganglia, and right occipital lobe. 2. Stable moderate nonspecific cerebral white matter disease, which likely repr esents chronic small vessel ischemic disease.
--- NOTE | 2024-02-08 16:58 | ED.SEIZURE ---
HPI - Seizure General Chief Complaint: Seizure Stated Complaint: Seizure Time Seen by Provider: 02/08/24 16:17 History of Present Illness HPI Narrative: Patient is a 64-year-old male who presents ER with reports of seizure from his fdc. Patient reported he had 40 minutes of seizure activity. Per EMS his right face was having jerks and and they subsided after receiving intranasal Versed. Patient has no complaints this time. Was seen earlier today for seizure. Seizure History: Yes Related Data Home Medications Medication Instructions Recorded Confirmed atorvastatin 40 mg tablet 40 mg feeding tube QHS 11/14/22 02/08/24 folic acid 1 mg tablet 1 mg feeding tube DAILY 11/14/22 02/08/24 lacosamide 200 mg tablet 200 mg feeding tube Q12H 11/14/22 02/08/24 aspirin 81 mg chewable tablet 81 mg feeding tube DAILY 11/15/22 02/08/24 metoprolol tartrate 25 mg tablet 25 mg feeding tube Q12H 12/18/22 02/08/24 polyethylene glycol 3350 17 17 g feeding tube Q12H Constipation 12/18/22 02/08/24 gram/dose oral powder bisacodyl 10 mg rectal suppository 10 mg RECTAL DAILY PRN Constipation 02/11/23 02/08/24 sennosides 8.6 mg tablet (senna) 8.6 mg feeding tube HS PRN 02/11/23 02/08/24 Constipation thiamine HCl (vitamin B1) 100 mg 100 mg feeding tube DAILY 02/11/23 02/08/24 tablet famotidine 20 mg tablet 20 mg feeding tube Q12H 03/21/23 02/08/24 levetiracetam 100 mg/mL oral 2,000 mg feeding tube Q12H 03/21/23 02/08/24 solution (Keppra) peg [id number] 1 1 drp EACH EYE 4-6XD PRN Dry Eyes 03/21/23 01/02/24 %-0.2 %-0.2 % eye drops (Artificial Tears ([id number])) valproic acid (as sodium salt) 250 750 mg feeding tube QID 03/21/23 02/08/24 mg/5 mL oral solution calcium carbonate 500 mg/5 mL (as 1,250 mg feeding tube Q6H PRN 07/08/23 02/08/24 calcium carb 1,250 mg/5 mL) oral Heartburn suspension guaifenesin 100 mg/5 mL oral liquid 600 mg feeding tube Q6HR 07/08/23 02/08/24 ipratropium 0.5 mg-albuterol 3 mg 3 ml inhalation Q4H PRN Shortness 07/08/23 02/08/24 (2.5 mg base)/3 mL nebulization Of Breath soln magnesium citrate 300 ml PO DAILY PRN Constipation 07/08/23 01/02/24 ibuprofen 200 mg tablet 600 mg feeding tube Q4H PRN Pain 12/13/23 02/08/24 lanolin alcohols-mineral 1 applic topical Q12H 12/13/23 02/08/24 oil-w.petrolatum-ceresin topical cream (Minerin Creme topical) magnesium hydroxide 400 mg/5 mL 30 ml feeding tube HS PRN 12/13/23 01/02/24 oral suspension (Milk of Magnesia) Constipation acetaminophen 650 mg tablet 650 mg PO Q4H PRN general 01/02/24 02/08/24 discomfort clobazam 2.5 mg/mL oral suspension 10 mg feeding tube Q12H 01/02/24 02/08/24 ketoconazole 2 % shampoo See Rx Instructions .Route .COMPLEX 01/02/24 02/08/24 lactose-reduced food with fiber 1 ea feeding tube DAILY 01/02/24 02/08/24 0.06 gram-1.5 kcal/mL oral liquid (Jevity 1.5 Bruno) sodium chloride 7 % for 1 inh inhalation TID 01/02/24 02/08/24 nebulization sodium phosphates 19 gram-7 197 ml RECTAL ONCE PRN Constipation 01/02/24 01/02/24 gram/197 mL enema ferrous sulfate 220 mg (44 mg mg 02/08/24 iron)/5 mL oral elixir lorazepam 2 mg/mL injection 2 mg IM QID 02/08/24 02/08/24 solution (Ativan) Allergies Allergy/AdvReac Type Severity Reaction Status Date / Time clonazepam Allergy Unknown Unknown Verified 12/23/23 11:27 Review of Systems Review of Systems: ROS unobtainable: Yes unobtainable due to medical condition PMFSH Past Medical History Medical History Benign prostatic hyperplasia Cerebrovascular accident Residual expressive aphasia, dysphagia, and left-sided weakness. Chronic obstructive pulmonary disease Deep venous thrombosis of upper extremity Esophageal diverticulum Gastroparesis Iron deficiency anemia Seizure disorder Vascular dementia with psychotic disturbance Surgical History Surgical History (Reviewed 02/08/24
[2024-02-08 17:28] LABS: Basophils Percent Auto 0.2 % (0.2-1.2); Eosinophils Absolute Auto 0.4 K/mm3 (0-0.3); Eosinophils Percent Auto 4.4 % (0-4.4); Hemoglobin 14.3 g/dL (14.0-18.0); Immature Granulocyte Absolute 0.02 K/mm3 (0.00-0.031); Immature Granulocyte Percent A 0.2 % (0-0.5); Lymphocytes Absolute Auto 2.45 K/mm3 (0.9-3.2); Lymphocytes Percent Auto 24.8 % (18.3-44.2); Mean Corpuscular HGB Conc 33.3 g/dl (32-36); Mean Corpuscular Volume 99.3 fl (80-100); Mean Platelet Volume 12.8 fl (7.4-10.4); Monocytes Absolute Auto 0.8 K/mm3 (0.1-0.6); Neutrophils Absolute Auto 6.2 K/mm3 (1.3-6.7); Neutrophils Percent Auto 62.4 % (45.5-73.1); Platelet Count Result 142 k/mm3 (150-375); Red Blood Count 4.33 M/mm3 (4.6-6.20); Red Cell Distribution Width 12.9 % (11.5-14.5); White Blood Count 9.9 K/mm3 (4.5-10.0)
[2024-02-08 17:42] LABS: Alanine Aminotransferase 15 U/L (6-50); Alkaline Phosphatase 96 U/L (38-126); Anion Gap 8 mmol/L (4-12); Aspartate Amino Transferase 23 U/L (17-59); Bilirubin,Total 0.5 mg/dL (0.2-1.3); Blood Urea Nitrogen 14 mg/dL (9-20); Calcium 9.7 mg/dL (8.4-10.2); Carbon Dioxide 27 mmol/L (22-30); Chloride 101 mmol/L (98-107); Estimated Glomerular Filt Rate > 60; Glucose 98 mg/dL (65-110); Potassium 4.1 mmol/L (3.4-5.0); Sodium 136 mmol/L (137-145)
[2024-02-08 17:55] LABS: Valproic Acid 48.6 ug/mL (50-120)
--- NOTE | 2024-02-08 18:44 | PC.NURSE ---
Gave update to pts POA on pt being transferred to slu.
--- NOTE | 2024-02-08 21:51 | PC.NURSE ---
Pt seen to have had 30 second episode of left sided facial twitching while this RN was in the room. ED Charge notified. PT O2 92% on room air. Placed on 2L with NRB mask placed over trach. Pt O2 up to 95%
[2024-02-08] MEDS: LORazepam INJ (*CRX) 2 MG/ML VIAL 0.5 MG IV PUSH (22:03)
[2024-02-08] MEDS: LACOSAMIDE (*CRX) 200 MG TABLET FEED TUBE (23:37)
[2024-02-08] MEDS: FAMOTIDINE 20 MG TABLET FEED TUBE (23:37)
[2024-02-08] MEDS: SENNOSIDES 8.6 MG TABLET FEED TUBE (23:38)
[2024-02-08] MEDS: METOCLOPRAMIDE HCL 10 MG TABLET FEED TUBE (23:38)
[2024-02-08] MEDS: levETIRAcetam ORAL SOL 500 MG/5 ML UDC 2000 MG FEED TUBE (23:41)
[2024-02-08] MEDS: guaiFENesin 200 MG/10 ML UDC 600 MG FEED TUBE (23:44)
[2024-02-08] MEDS: VALPROIC ACID LIQ 250 MG/5 ML ORAL SOLUTION UDC 750 MG FEED TUBE (23:45)
[2024-02-08] MEDS: LORazepam INJ (*CRX) 2 MG/ML VIAL 1 MG IV PUSH (23:46)
[2024-02-08] MEDS: levETIRAcetam 500MG/NACL 100ML 500 MG/100 ML BAG 400 MG IVPB (23:49)
[2024-02-08] MEDS: SODIUM CHLORIDE 0.9% IV 1,000 ML 999 ML IV CONT (23:55)
[2024-02-09] VITALS (20 sets, daily range): BP systolic 104–197; BP diastolic 69–101; PULSE 84–124; RESP 18–33; TEMP 36.4–36.9; O2SAT 94–100; BMI 23.1
[2024-02-09] MEDS: METOPROLOL TARTRATE 25 MG TABLET FEED TUBE ×3 (00:13→21:57)
[2024-02-09] MEDS: ATORVASTATIN 40 MG TABLET FEED TUBE ×2 (00:15→22:31)
--- NOTE | 2024-02-09 03:00 | PC.NURSE ---
Unsuccessfully attempted to call [facility] to ask about what kind of tube feeding pt requires and sizing for inner cannula.
[2024-02-09] MEDS: EUCERIN CREAM 454 GM JAR 1 APPLIC TOPICAL ×3 (04:13→22:01)
--- NOTE | 2024-02-09 04:13 | PC.NURSE ---
Pt paredes cleaned and jessi care provided. Eucerin cream applied to bilateral inner thighs and buttock. Pt turned and repositioned with pillow under left side.
[2024-02-09] MEDS: guaiFENesin 200 MG/10 ML UDC 600 MG FEED TUBE ×3 (06:50→18:20)
[2024-02-09] MEDS: METOCLOPRAMIDE HCL 10 MG TABLET FEED TUBE ×4 (06:50→21:57)
[2024-02-09] MEDS: VALPROIC ACID LIQ 250 MG/5 ML ORAL SOLUTION UDC 750 MG FEED TUBE ×2 (07:01→14:22)
[2024-02-09] MEDS: FERROUS SULFATE LIQUID 220 MG/5 ML ELIXIR FEED TUBE (08:08)
[2024-02-09] MEDS: ASPIRIN 81 MG CHEWABLE TABLET FEED TUBE (09:11)
[2024-02-09] MEDS: cloBAZam (*CRX) 10 MG TABLET FEED TUBE (09:12)
[2024-02-09] MEDS: THIAMINE HCL 100 MG TABLET FEED TUBE (09:12)
[2024-02-09] MEDS: FAMOTIDINE 20 MG TABLET FEED TUBE ×2 (09:13→21:57)
[2024-02-09] MEDS: FOLIC ACID 1 MG TABLET FEED TUBE (09:13)
[2024-02-09] MEDS: levETIRAcetam ORAL SOL 500 MG/5 ML UDC 2000 MG FEED TUBE ×2 (09:15→22:33)
[2024-02-09] MEDS: LACOSAMIDE (*CRX) 200 MG TABLET FEED TUBE ×2 (09:15→22:32)
[2024-02-09] MEDS: polyethylene glycoL 3350 17 GM POWD.PACK FEED TUBE (09:16)
--- NOTE | 2024-02-09 09:20 | PC.NURSE ---
No Bed - pt remains on waitlist
--- NOTE | 2024-02-09 12:30 | PC.NURSE ---
Pt given bed bath, gown change, lotion and deodorant applied, teeth brushed, repositioned to his right side.
--- NOTE | 2024-02-09 16:06 | WPDNEURCNPN ---
Assessment and Plan Assessment and plan (1) Intractable seizure disorder: Code(s): G40.919 - Epilepsy, unspecified, intractable, without status epilepticus Status: Acute (2) Cerebrovascular accident: Code(s): I63.9 - Cerebral infarction, unspecified Status: Chronic (3) Tracheostomy in place: Code(s): Z93.0 - Tracheostomy status Status: Acute (4) Atrial fibrillation with rapid ventricular response: Code(s): I48.91 - Unspecified atrial fibrillation Status: Acute Plan Clearly the patient has significant to comorbid medical conditions for which she is receiving a variety of treatment. With regard to the seizures are suggest increase the dose of Depakote 2000 mg 3 times a day. I think that he most likely is going to require oxcarbazepine or something along that line to see we can help improve the seizure control. I will order an EEG since there is no bed available at [facility] As of now. However if he gets better over there I am sure that that further testing will be done to did make a decision regarding further modification anticonvulsant therapy.. Consult date: 02/09/24 HPI: Bi Tabor is a 64 year old male With history of for intractable seizures and multiple strokes and today numerous concurrent medical problems. He is a resident of [facility] has been brought to the hospital because he has had numerous seizures. He is normally he is taking care of at [facility] however he has been accepted there for transfer but there is no bed and hence he has been here for more than 24 hours. The ER physician called me and asked me to see if I can be of help. We went over the seizure medications and made a few decisions. Review of Systems Review of Systems: ROS unobtainable: Yes unobtainable due to mental status PMFSH Past Medical History Medical History Benign prostatic hyperplasia Cerebrovascular accident Residual expressive aphasia, dysphagia, and left-sided weakness. Chronic obstructive pulmonary disease Deep venous thrombosis of upper extremity Esophageal diverticulum Gastroparesis Iron deficiency anemia Seizure disorder Vascular dementia with psychotic disturbance Surgical History Surgical History History of gastrostomy tube placement History of left above knee amputation History of tracheostomy Family History Family History Other Unknown family medical history Social History Social History Social History: Surrogate medical decision maker: Adriane Hilliard, sibling. Code status: Full code. 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
--- NOTE | 2024-02-09 18:19 | PC.NURSE ---
No Bed-Remains on Bed wait list
--- NOTE | 2024-02-09 19:47 | PM.IMHP ---
H&P: HPI History of Present Illness Date/Time: 02/09/24 19:47 Chief Complaint: seizure Narrative: This is a 64-year-old male with past medical history significant for stroke, insulin-dependent diabetes mellitus, hypertension, chronic respiratory failure, chronic trach, peg tube in place, seizure disorder, benign prostatic hyperplasia, chronic obstructive pulmonary disease, DVT. patient was brought to the emergency room for evaluation after having recurrent breakthrough seizures was supposed to go to [facility]. Patient has been admitted for further evaluation management and treatment. XR chest 1V portable Ordering provider: Elmo Zhu MD History: 64 years Male with . seizure . Comparison: January 07, 2024 FINDINGS: MEDIASTINUM: The cardiac silhouette is not enlarged. Tracheostomy tube unchanged. LUNGS: No infiltrates, effusions or pneumothorax. OTHER: No free air under the diaphragm. Degenerative changes of the spine. IMPRESSION: No acute cardiopulmonary pathology. Review of Systems Review of Systems: ROS unobtainable: Yes other (trach/stroke) [facility] Past Medical History Medical History (Updated 02/15/24 @ 13:15 by Angela James APRN) Benign prostatic hyperplasia Cerebrovascular accident Residual expressive aphasia, dysphagia, and left-sided weakness. Chronic obstructive pulmonary disease Deep venous thrombosis of upper extremity Esophageal diverticulum Gastroparesis Iron deficiency anemia Seizure disorder Vascular dementia with psychotic disturbance Surgical History Surgical History History of gastrostomy tube placement History of left above knee amputation History of tracheostomy Family History Family History Other Unknown family medical history Social History Social History Social History: Surrogate medical decision maker: Adriane Hilliard, sibling. Code status: Full code. 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 Additional gender identity comments: Never Spiritual care concerns: No Meds Home Medications and Allergies Home Medications Medication Instructions Recorded Confirmed Type metoprolol tartrate 25 mg tablet 25 mg PO BID 12/18/22 02/10/24 History polyethylene glycol 3350 17 17 g feeding tube DAILY PRN 12/18/22 02/09/24 History gram/dose oral powder Constipation bisacodyl 10 mg rectal suppository 10 mg RECTAL DAILY PRN Constipation 02/11/23 02/08/24 History sennosides 8.6 mg tablet (senna) 8.6 mg feeding tube BID 02/11/23 02/10/24 History guaifenesin 100 mg/5 mL oral liquid 600 mg feeding tube BID 07/08/23 02/09/24 History magnesium hydroxide 400 mg/5 mL 30 ml PO HS PRN Constipation 12/13/23 02/10/24 History oral suspension (Milk of Magnesia) acetaminophen 650 mg tablet 650 mg PO Q4H PRN general 01/02/24 02/08/24 History discomfort lanolin alcohols-mineral 1 applic topical DAILY PRN Itching 02/09/24 02/09/24 History oil-w.petrolatum-ceresin topical cream (Eucerin topical cream) pantoprazole 40 mg granules 40 mg PO DAILY 02/09/24 02/10/24 History delayed-release for susp in packet (Protonix) artificial tears solution eye drops 1 d
[2024-02-09] MEDS: VALPROIC ACID LIQ 250 MG/5 ML ORAL SOLUTION UDC 1000 MG FEED TUBE (21:57)
[2024-02-09] MEDS: ONDANSETRON INJ 4 MG/2 ML VIAL IV PUSH (22:10)
[2024-02-09] MEDS: SENNOSIDES 8.6 MG TABLET FEED TUBE (22:32)
--- NOTE | 2024-02-09 23:59 | ADMGEN ---
This patient, Bi Tabor, was admitted to IMU Room 201-01. Patient/family oriented to hospital policies and general routines including ID bracelet, bed and alarms, visiting hours, pain management, procedures, bathroom and other care routines, personal items, smoking policy, room service/diet, and visiting hours. Information on how to activate the Rapid Response Team has been discussed. Patient/Family are encouraged to report perceived risks to care and to ask questions if they do not understand what they are told or what they should do.
[2024-02-10] VITALS (23 sets, daily range): BP systolic 113–143; BP diastolic 47–85; PULSE 89–124; RESP 20–24; TEMP 36.1–37.2; O2SAT 93–98; BMI 23.1
[2024-02-10] MEDS: guaiFENesin 200 MG/10 ML UDC 600 MG FEED TUBE ×4 (00:54→17:08)
[2024-02-10] MEDS: VALPROIC ACID LIQ 250 MG/5 ML ORAL SOLUTION UDC 1000 MG FEED TUBE (06:19)
[2024-02-10] MEDS: METOCLOPRAMIDE HCL 10 MG TABLET FEED TUBE ×4 (06:19→20:39)
[2024-02-10 06:43] LABS: Add Urine Microscopic? YES; Appearance Urine Clear (Clear); Bacteria Urine 4+ /hpf; Bilirubin Urine Negative (Negative); Blood Urine Negative (Negative); Color Urine Yellow (Yellow); Glucose Urine UA Negative (Negative); Ketones Urine Negative (Negative); Leukocyte Esterase Ur 3+ LEU/UL (Negative); Nitrate Urine Negative (Negative); Non Pathogenic Casts 0-2; Protein Urine Negative (Negative); RBC Urine 0-2 /hpf (0-2); Specific Grav Ur 1.006 (1.001-1.035); Squamous Epithelial Cell Urine None Seen /hpf (Few); WBC Urine 21-50 /hpf (0-3)
[2024-02-10] MEDS: FERROUS SULFATE LIQUID 220 MG/5 ML ELIXIR FEED TUBE (09:18)
[2024-02-10] MEDS: polyethylene glycoL 3350 17 GM POWD.PACK FEED TUBE (09:18)
[2024-02-10] MEDS: cloBAZam (*CRX) 10 MG TABLET FEED TUBE (09:19)
[2024-02-10] MEDS: levETIRAcetam ORAL SOL 500 MG/5 ML UDC 2000 MG FEED TUBE ×2 (09:19→20:39)
[2024-02-10] MEDS: ASPIRIN 81 MG CHEWABLE TABLET FEED TUBE (09:19)
[2024-02-10] MEDS: METOPROLOL TARTRATE 25 MG TABLET FEED TUBE ×2 (09:20→20:39)
[2024-02-10] MEDS: FAMOTIDINE 20 MG TABLET FEED TUBE ×2 (09:20→20:40)
[2024-02-10] MEDS: FOLIC ACID 1 MG TABLET FEED TUBE (09:21)
[2024-02-10] MEDS: THIAMINE HCL 100 MG TABLET FEED TUBE (09:21)
[2024-02-10] MEDS: LACOSAMIDE (*CRX) 200 MG TABLET FEED TUBE ×2 (09:21→20:39)
[2024-02-10] MEDS: PANTOPRAZOLE 40 MG TABLET PO (09:21)
[2024-02-10] MEDS: EUCERIN CREAM 454 GM JAR 1 APPLIC TOPICAL ×2 (09:23→20:57)
--- NOTE | 2024-02-10 10:30 | PM.IMPN ---
Progress Note: A&P Assessment and Plan (1) Intractable seizure disorder: Code(s): G40.919 - Epilepsy, unspecified, intractable, without status epilepticus Status: Acute Assessment and Plan: 02/10/24: Patient reported to have 40 minutes of seizure activity at his assisted living facility and received intranasal Versed EN route to the hospital Neurology consulted Head CT showed old infarcts involving the thalami, left basal ganglia, and right occipital lobe, stable moderate nonspecific cerebral white matter disease likely representing chronic small-vessel ischemic disease EEG ordered Will increase Depakote to 2000 mg t.i.d. per neurology recommendation Continue Keppra and lacosamide Continue seizure precautions Continue neuro checks Plan for transfer to [facility] when bed available (2) Cerebrovascular accident: Code(s): I63.9 - Cerebral infarction, unspecified Status: Chronic Assessment and Plan: 02/10/24: With residual of expressive aphasia, dysphasia, and left-sided weakness Chronic trach and G-tube (3) Tracheostomy dependence: Code(s): Z93.0 - Tracheostomy status Status: Chronic Assessment and Plan: 02/10/24: Currently on high-flow trach collar with a flow rate of 35 % Trach care daily (4) 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 Assessment and Plan: 02/10/24: Continue Jevity 1.5 tube feeding and free water flushes q.6 hours Continue Reglan as he history of gastroparesis Time Spent With Patient Time with patient: Greater than 35 minutes Subjective Date/time seen: 02/10/24 10:30 Interval history: Interval history: This is a 64-year-old male with a significant past medical history of BPH, CVA with left-sided weakness, COPD, DVT, iron deficiency anemia, gastroparesis, seizure disorder, vascular dementia with psychotic disturbance, left above knee amputation, history of G-tube and tracheostomy, former smoker who presented to the ER on 02/08/2024 for evaluation of seizure from his retirement. He received intranasal Versed while in route to the ED. Patient normally receives all of his care at [facility] and transferred to [facility] was started in the ER however [facility] does not have any beds currently available and he is on the wait list.Workup in the hospital included chest x-ray which was negative for any acute cardiopulmonary process. Initial labs showed a normal white blood cell count of 9.9, platelet count 142, sodium 136. UA showed 3+ leukocytes, 21-50 urine WBC, 4+ urine bacteria. Bowel pork acid 48.6. Urine culture was obtained and is pending. EKG showed normal sinus rhythm with a rate of 95, QTC 390. Neurology seen patient in the emergency room and suggested increasing his Depakote to 2000 mg 3 times a day. Subjective: Labs, cultures, and imaging reviewed. Review of Systems Review of Systems: ROS unobtainable: Yes unobtainable due to mental status Exam Narrative: General: In no acute distress, well nourished Head: atraumatic, no encephalopathy Eyes: EOMI, PERRLA, sclera clear ENT: Tacky mucous membranes, nasal passages clear Neck: supple, no JVD, no adenopathy, trachea midline Cardiac: Normal S1 and S2. No murmur, gallops or friction rubs, peripheral pulses intact. Respiratory: Lungs clear to auscultation, no adventitious lung sounds, tracheostomy, currently on trach collar Gastrointestinal: soft, non-distended, non-tender, normoactive bowel sounds. G-tube in place receiving tube feeding : Jensen catheter in place clear and yellow Extremities: left knee knee amputation left-sided weakness Skin: clean, dry, intact. No wounds or lesions. Neuro: Alert to voice, cranial nerves intact, no neuro deficits. Psych: normal mood, normal affect, interactive Objective Data Vital Signs Vital Signs: Vital Signs - 24 hr 02/09/24 12:00 02/09/24 12:55 01/28
[2024-02-10 11:19] LABS: MRSA (PCR) DETECTED (NOT DETECTE)
--- NOTE | 2024-02-10 11:29 | PCRCNOTE ---
Patient placed on 3L 24% venturi mask/trach collar for transport to CT scan. RN informed. Patient's SpO2 levels are 95%.
[2024-02-10] MEDS: VALPROIC ACID LIQ 250 MG/5 ML ORAL SOLUTION UDC 2000 MG FEED TUBE ×2 (13:43→20:40)
[2024-02-10] MEDS: ATORVASTATIN 40 MG TABLET FEED TUBE (20:40)
[2024-02-10] MEDS: SENNOSIDES 8.6 MG TABLET FEED TUBE (20:40)
[2024-02-11] VITALS (19 sets, daily range): BP systolic 124–155; BP diastolic 69–85; PULSE 79–115; RESP 16–28; TEMP 36.3–36.9; O2SAT 92–98
[2024-02-11] MEDS: guaiFENesin 200 MG/10 ML UDC 600 MG FEED TUBE ×5 (00:03→23:51)
[2024-02-11] MEDS: VALPROIC ACID LIQ 250 MG/5 ML ORAL SOLUTION UDC 2000 MG FEED TUBE ×3 (06:13→21:09)
[2024-02-11] MEDS: METOCLOPRAMIDE HCL 10 MG TABLET FEED TUBE ×4 (06:14→21:09)
--- NOTE | 2024-02-11 08:56 | P.PNIM_ITS ---
Progress Note: A&P Assessment and Plan (1) Intractable seizure disorder: Code(s): G40.919 - Epilepsy, unspecified, intractable, without status epilepticus Status: Acute Assessment and Plan: 02/10/24: * Patient reported to have 40 minutes of seizure activity at his assisted living facility and received intranasal Versed EN route to the hospital * Neurology consulted * Head CT showed old infarcts involving the thalami, left basal ganglia, and right occipital lobe, stable moderate nonspecific cerebral white matter disease likely representing chronic small-vessel ischemic disease * EEG ordered * Will increase Depakote to 2000 mg t.i.d. per neurology recommendation * Continue Keppra and lacosamide * Continue seizure precautions * Continue neuro checks * Plan for transfer to [facility] when bed available 02/11/24: * Continue with current treatment plan (2) Cerebrovascular accident: Code(s): I63.9 - Cerebral infarction, unspecified Status: Chronic Assessment and Plan: 02/10/24: * With residual of expressive aphasia, dysphasia, and left-sided weakness * Chronic trach and G-tube (3) Tracheostomy dependence: Code(s): Z93.0 - Tracheostomy status Status: Chronic Assessment and Plan: 02/10/24: * Currently on high-flow trach collar with a flow rate of 35 % * Trach care daily 02/11/24: * No change to current treatment plan (4) 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 Assessment and Plan: 02/10/24: * Continue Jevity 1.5 tube feeding and free water flushes q.6 hours * Continue Reglan as he history of gastroparesis 02/11/24: * No change to current treatment plan Time Spent With Patient Time with patient: 25 - 35 minutes Subjective Date/time seen: 02/11/24 08:56 Interval history: Interval history: This is a 64-year-old male with a significant past medical history of BPH, CVA with left-sided weakness, COPD, DVT, iron deficiency anemia, gastroparesis, seizure disorder, vascular dementia with psychotic disturbance, left above knee amputation, history of G-tube and tracheostomy, former smoker who presented to the ER on 02/08/2024 for evaluation of seizure from his half-way. He received intranasal Versed while in route to the ED. Patient normally receives all of his care at [facility] and transferred to [facility] was started in the ER however [facility] does not have any beds currently available and he is on the wait list.Workup in the hospital included chest x-ray which was negative for any acute cardiopulmonary process. Initial labs showed a normal ite blood cell count of 9.9, platelet count 142, sodium 136. UA showed 3+ leukocytes, 21-50 urine WBC, 4+ urine bacteria. Bowel pork acid 48.6. Urine culture was obtained and is pending. EKG showed normal sinus rhythm with a rate of 95, QTC 390. Neurology seen patient in the emergency room and suggested increasing his Depakote to 2000 mg 3 times a day. Subjective: Labs, cultures, and imaging reviewed. Review of Systems Review of Systems: ROS unobtainable: Yes unobtainable due to mental status and other (trach/stroke) Exam Narrative: General: In no acute distress, well nourished Cardiac: Normal S1 and S2. No murmur, gallops or friction rubs, peripheral pulses intact. Respiratory: Lungs clear to auscultation, no adventitious lung sounds, tracheostomy, currently on trach collar Gastrointestinal: soft, non-distended, non-tender, normoactive bowel sounds. G- tube in plac
--- NOTE | 2024-02-11 08:56 | PM.IMPN ---
Progress Note: A&P Assessment and Plan (1) Intractable seizure disorder: Code(s): G40.919 - Epilepsy, unspecified, intractable, without status epilepticus Status: Acute Assessment and Plan: 02/10/24: Patient reported to have 40 minutes of seizure activity at his assisted living facility and received intranasal Versed EN route to the hospital Neurology consulted Head CT showed old infarcts involving the thalami, left basal ganglia, and right occipital lobe, stable moderate nonspecific cerebral white matter disease likely representing chronic small-vessel ischemic disease EEG ordered Will increase Depakote to 2000 mg t.i.d. per neurology recommendation Continue Keppra and lacosamide Continue seizure precautions Continue neuro checks Plan for transfer to [facility] when bed available 02/11/24: Continue with current treatment plan (2) Cerebrovascular accident: Code(s): I63.9 - Cerebral infarction, unspecified Status: Chronic Assessment and Plan: 02/10/24: With residual of expressive aphasia, dysphasia, and left-sided weakness Chronic trach and G-tube (3) Tracheostomy dependence: Code(s): Z93.0 - Tracheostomy status Status: Chronic Assessment and Plan: 02/10/24: Currently on high-flow trach collar with a flow rate of 35 % Trach care daily 02/11/24: No change to current treatment plan (4) 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 Assessment and Plan: 02/10/24: Continue Jevity 1.5 tube feeding and free water flushes q.6 hours Continue Reglan as he history of gastroparesis 02/11/24: No change to current treatment plan Time Spent With Patient Time with patient: 25 - 35 minutes Subjective Date/time seen: 02/11/24 08:56 Interval history: Interval history: This is a 64-year-old male with a significant past medical history of BPH, CVA with left-sided weakness, COPD, DVT, iron deficiency anemia, gastroparesis, seizure disorder, vascular dementia with psychotic disturbance, left above knee amputation, history of G-tube and tracheostomy, former smoker who presented to the ER on 02/08/2024 for evaluation of seizure from his detention. He received intranasal Versed while in route to the ED. Patient normally receives all of his care at [facility] and transferred to [facility] was started in the ER however [facility] does not have any beds currently available and he is on the wait list.Workup in the hospital included chest x-ray which was negative for any acute cardiopulmonary process. Initial labs showed a normal white blood cell count of 9.9, platelet count 142, sodium 136. UA showed 3+ leukocytes, 21-50 urine WBC, 4+ urine bacteria. Bowel pork acid 48.6. Urine culture was obtained and is pending. EKG showed normal sinus rhythm with a rate of 95, QTC 390. Neurology seen patient in the emergency room and suggested increasing his Depakote to 2000 mg 3 times a day. Subjective: Labs, cultures, and imaging reviewed. Review of Systems Review of Systems: ROS unobtainable: Yes unobtainable due to mental status and other (trach/stroke) Exam Narrative: General: In no acute distress, well nourished Cardiac: Normal S1 and S2. No murmur, gallops or friction rubs, peripheral pulses intact. Respiratory: Lungs clear to auscultation, no adventitious lung sounds, tracheostomy, currently on trach collar Gastrointestinal: soft, non-distended, non-tender, normoactive bowel sounds. G-tube in place receiving tube feeding : Jensen catheter in place clear and yellow Extremities: left knee knee amputation left-sided weakness Neuro: Alert to voice Objective Data Vital Signs Vital Signs: Vital Signs - 24 hr 02/10/24 09:20 02/10/24 11:28 02/10/24 10:00 Temperature Pulse Rate 122 H 101 H Respiratory Rate Blood Pressure Pulse Oximetry 95 Oxygen Delivery High Flow Therapy
[2024-02-11] MEDS: METOPROLOL TARTRATE 25 MG TABLET FEED TUBE ×2 (09:23→21:09)
[2024-02-11] MEDS: FOLIC ACID 1 MG TABLET FEED TUBE (09:23)
[2024-02-11] MEDS: THIAMINE HCL 100 MG TABLET FEED TUBE (09:24)
[2024-02-11] MEDS: ASPIRIN 81 MG CHEWABLE TABLET FEED TUBE (09:24)
[2024-02-11] MEDS: LACOSAMIDE (*CRX) 200 MG TABLET FEED TUBE ×2 (09:24→21:09)
[2024-02-11] MEDS: FAMOTIDINE 20 MG TABLET FEED TUBE ×2 (09:24→21:09)
[2024-02-11] MEDS: cloBAZam (*CRX) 10 MG TABLET FEED TUBE (09:24)
[2024-02-11] MEDS: FERROUS SULFATE LIQUID 220 MG/5 ML ELIXIR FEED TUBE (09:25)
[2024-02-11] MEDS: polyethylene glycoL 3350 17 GM POWD.PACK FEED TUBE (09:25)
[2024-02-11] MEDS: ENOXAPARIN 40 MG/0.4 ML SYRINGE SUB-Q (09:25)
[2024-02-11] MEDS: PANTOPRAZOLE 40 MG TABLET PO (09:26)
[2024-02-11] MEDS: levETIRAcetam ORAL SOL 500 MG/5 ML UDC 2000 MG FEED TUBE ×2 (09:41→21:09)
[2024-02-11] MEDS: ATORVASTATIN 40 MG TABLET FEED TUBE (21:09)
[2024-02-11] MEDS: SENNOSIDES 8.6 MG TABLET FEED TUBE (21:09)
[2024-02-11] MEDS: EUCERIN CREAM 454 GM JAR 1 APPLIC TOPICAL (22:00)
[2024-02-12] VITALS (19 sets, daily range): BP systolic 126–155; BP diastolic 60–97; PULSE 89–129; RESP 14–20; TEMP 36.1–37; O2SAT 93–95
[2024-02-12] MEDS: guaiFENesin 200 MG/10 ML UDC 600 MG FEED TUBE ×3 (06:31→18:25)
[2024-02-12] MEDS: METOCLOPRAMIDE HCL 10 MG TABLET FEED TUBE ×4 (06:31→19:51)
[2024-02-12] MEDS: VALPROIC ACID LIQ 250 MG/5 ML ORAL SOLUTION UDC 2000 MG FEED TUBE ×3 (06:31→19:52)
[2024-02-12] MEDS: FOLIC ACID 1 MG TABLET FEED TUBE (08:31)
[2024-02-12] MEDS: FAMOTIDINE 20 MG TABLET FEED TUBE ×2 (08:31→19:51)
[2024-02-12] MEDS: THIAMINE HCL 100 MG TABLET FEED TUBE (08:31)
[2024-02-12] MEDS: cloBAZam (*CRX) 10 MG TABLET FEED TUBE (08:31)
[2024-02-12] MEDS: METOPROLOL TARTRATE 25 MG TABLET FEED TUBE ×2 (08:31→19:51)
[2024-02-12] MEDS: FERROUS SULFATE LIQUID 220 MG/5 ML ELIXIR FEED TUBE (08:31)
[2024-02-12] MEDS: levETIRAcetam ORAL SOL 500 MG/5 ML UDC 2000 MG FEED TUBE ×2 (08:31→19:52)
[2024-02-12] MEDS: LACOSAMIDE (*CRX) 200 MG TABLET FEED TUBE ×2 (08:32→19:51)
[2024-02-12] MEDS: PANTOPRAZOLE 40 MG TABLET PO (08:32)
[2024-02-12] MEDS: ASPIRIN 81 MG CHEWABLE TABLET FEED TUBE (08:33)
[2024-02-12] MEDS: polyethylene glycoL 3350 17 GM POWD.PACK FEED TUBE (08:33)
[2024-02-12] MEDS: ENOXAPARIN 40 MG/0.4 ML SYRINGE SUB-Q (08:33)
[2024-02-12 08:43] LABS: Hematocrit 40.3 % (42.0-52.0); Hemoglobin 13.3 g/dL (14.0-18.0); Immature Platelet Fraction Pct 18.1 % (0.9-11.2); Mean Corpuscular Hemoglobin 32.9 pg (26-34); Mean Corpuscular Volume 99.8 fl (80-100); Mean Platelet Volume 13.2 fl (7.4-10.4); Platelet Count Result 115 k/mm3 (150-375); Red Blood Count 4.04 M/mm3 (4.6-6.20); Red Cell Distribution Width 12.6 % (11.5-14.5); White Blood Count 6.7 K/mm3 (4.5-10.0)
[2024-02-12 09:14] LABS: Anion Gap 9 mmol/L (4-12); Blood Urea Nitrogen 13 mg/dL (9-20); Calcium 9.2 mg/dL (8.4-10.2); Carbon Dioxide 27 mmol/L (22-30); Chloride 102 mmol/L (98-107); Estimated CRCL calculation 130 ml/min; Estimated Glomerular Filt Rate > 60; Glucose 114 mg/dL (65-110); Sodium 138 mmol/L (137-145)
[2024-02-12 09:17] LABS: Potassium 3.9 mmol/L (3.4-5.0)
--- NOTE | 2024-02-12 10:41 | PM.IMPN ---
Progress Note: A&P Assessment and Plan (1) Intractable seizure disorder: Code(s): G40.919 - Epilepsy, unspecified, intractable, without status epilepticus Status: Acute Assessment and Plan: Patient reported to have 40 minutes of seizure activity at his assisted living facility and received intranasal Versed en route to the hospital with discontinuation of seizure activity Head CT showed old infarcts involving the thalami, left basal ganglia, and right occipital lobe, stable moderate nonspecific cerebral white matter disease likely representing chronic small-vessel ischemic disease Has been seen in consultation by Neurology. Recommendations to increase Depakote to 2000 mg 3 times per day. Continue home Keppra and lacosamide EEG has been ordered, awaiting completion Has been accepted for transfer to [facility], awaiting bed availability. Recent report given that hopefully bed will be available tomorrow Continue seizure precautions during admission and regular neuro checks (2) Cerebrovascular accident: Code(s): I63.9 - Cerebral infarction, unspecified Status: Chronic Assessment and Plan: History of CVA with residual expressive aphasia, dysphagia, and left-sided weakness With residual of expressive aphasia, dysphasia, and left-sided weakness (3) Tracheostomy dependence: Code(s): Z93.0 - Tracheostomy status Status: Chronic Assessment and Plan: Currently on high-flow trach collar with a flow rate of 35 % Trach care daily (4) 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 Assessment and Plan: G-tube in place following CVA Continue Jevity 1.5 tube feeding and free water flushes q.6 hours Continue Reglan given history of gastroparesis (5) Thrombocytopenia: Code(s): D69.6 - Thrombocytopenia, unspecified Status: Chronic Assessment and Plan: Chronic, ongoing issue Platelet count today 115k Continue to monitor Subjective Date/time seen: 02/12/24 10:41 Interval history: Bi is resting comfortably today. Not able to provide any relevant history. Able to shake his head yes or no occasionally. Spoke with RN at bedside, reports no acute events overnight. Doing well with tube feeds. Still awaiting transfer to [facility], most recent update is that bed is expected for tomorrow hopefully Review of Systems Review of Systems: ROS unobtainable: Yes unobtainable due to mental status Exam Narrative: General: Chronically ill-appearing 64-year-old male, supine in bed, comfortable, NARD Neuro: awake, alert, not able to answer orientation questions or provide any verbal responses HEENMT: normocephalic, atraumatic, EOMI, sclerae anicteric Respiratory: clear to auscultation anteriorly, tracheostomy dependent Cardio: regular rate, regular rhythm with S1-S2 Abdomen: nondistended, normoactive bowel sounds, soft, nontender to palpation, PEG tube noted : Jensen catheter draining clear yellow your Extremities: Contractures of left upper extremity, wearing brace. Left AKA, right lower extremity without edema, wearing waffle boot Skin: no rashes or lesions, warm and dry Psych: Judgment and insight poor Objective Data Vital Signs Vital Signs: Vital Signs - 24 hr 02/11/24 12:00 02/11/24 12:00 02/11/24 12:00 Temperature 98.3 F Pulse Rate 90 97 90 Respiratory Rate 28 H 28 H Blood Pressure 132/69 Pulse Oximetry 93 93 Oxygen Delivery High Flow Therapy with Tr Oxygen Flow Rate 35 Fraction of Inspired Oxygen 21 02/11/24 14:00 02/11/24 15:41 02/11/24 16:00 Temperature 98.5 F Pulse Rate 79 101 H 94 Respiratory Rate 20 Blood Pressure 124/73 Pulse Oximetry 95 Oxygen Delivery Oxygen Flow Rate Fraction of Inspired Oxygen 02/11/24 16:00 02/11/24 18:00 02/11/24 20:06 Temperature Pulse Rate 101 H 94 96 Respiratory Rate 20 Blood Pressure P
[2024-02-12] MEDS: EUCERIN CREAM 454 GM JAR 1 APPLIC TOPICAL ×2 (16:03→19:53)
--- NOTE | 2024-02-12 16:15 | PC.NURSE ---
Reviewed and Approved Charting for [facility]
[2024-02-12] MEDS: ATORVASTATIN 40 MG TABLET FEED TUBE (19:51)
[2024-02-12] MEDS: SENNOSIDES 8.6 MG TABLET FEED TUBE (19:52)
[2024-02-12] MEDS: METOPROLOL TARTRATE INJ 5 MG/5 ML VIAL IV PUSH (23:59)
[2024-02-13] VITALS (20 sets, daily range): BP systolic 112–151; BP diastolic 72–95; PULSE 113–136; RESP 20–34; TEMP 36–38.4; O2SAT 90–96
[2024-02-13] MEDS: PIPERACILLN/TAZ 3.375GM/NS50ML 3.375 GM/50 ML BAG IVPB ×2 (00:52→06:26)
[2024-02-13 05:12] LABS: Hemoglobin 13.4 g/dL (14.0-18.0); Mean Corpuscular HGB Conc 32.7 g/dl (32-36); Mean Corpuscular Hemoglobin 32.9 pg (26-34); Mean Corpuscular Volume 100.7 fl (80-100); Mean Platelet Volume 13.9 fl (7.4-10.4); Platelet Count Result 113 k/mm3 (150-375); Red Blood Count 4.07 M/mm3 (4.6-6.20); Red Cell Distribution Width 12.9 % (11.5-14.5); White Blood Count 6.9 K/mm3 (4.5-10.0)
[2024-02-13 05:23] LABS: Anion Gap 9 mmol/L (4-12); Blood Urea Nitrogen 13 mg/dL (9-20); Calcium 9.1 mg/dL (8.4-10.2); Carbon Dioxide 29 mmol/L (22-30); Chloride 102 mmol/L (98-107); Estimated CRCL calculation 110 ml/min; Estimated Glomerular Filt Rate > 60; Glucose 108 mg/dL (65-110); Potassium 3.7 mmol/L (3.4-5.0); Sodium 140 mmol/L (137-145)
[2024-02-13] MEDS: METOCLOPRAMIDE HCL 10 MG TABLET FEED TUBE ×4 (06:25→20:32)
[2024-02-13] MEDS: VALPROIC ACID LIQ 250 MG/5 ML ORAL SOLUTION UDC 1000 MG FEED TUBE ×3 (06:26→20:31)
[2024-02-13] MEDS: guaiFENesin 200 MG/10 ML UDC 600 MG FEED TUBE ×5 (06:26→23:55)
[2024-02-13] MEDS: METOPROLOL TARTRATE 25 MG TABLET FEED TUBE ×2 (08:48→13:57)
[2024-02-13] MEDS: FOLIC ACID 1 MG TABLET FEED TUBE (08:49)
[2024-02-13] MEDS: ASPIRIN 81 MG CHEWABLE TABLET FEED TUBE (08:49)
[2024-02-13] MEDS: FAMOTIDINE 20 MG TABLET FEED TUBE ×2 (08:49→20:31)
[2024-02-13] MEDS: cloBAZam (*CRX) 10 MG TABLET FEED TUBE (08:49)
[2024-02-13] MEDS: THIAMINE HCL 100 MG TABLET FEED TUBE (08:50)
[2024-02-13] MEDS: LACOSAMIDE (*CRX) 200 MG TABLET FEED TUBE ×2 (08:50→20:32)
[2024-02-13] MEDS: FERROUS SULFATE LIQUID 220 MG/5 ML ELIXIR FEED TUBE (08:50)
[2024-02-13] MEDS: ENOXAPARIN 40 MG/0.4 ML SYRINGE SUB-Q (08:50)
[2024-02-13] MEDS: levETIRAcetam ORAL SOL 500 MG/5 ML UDC 2000 MG FEED TUBE ×2 (08:50→20:31)
[2024-02-13] MEDS: PANTOPRAZOLE 40 MG TABLET PO (08:51)
[2024-02-13] MEDS: polyethylene glycoL 3350 17 GM POWD.PACK FEED TUBE (08:51)
--- NOTE | 2024-02-13 09:13 | P.PNIM_ITS ---
Progress Note: A&P Assessment and Plan (1) Intractable seizure disorder: Code(s): G40.919 - Epilepsy, unspecified, intractable, without status epilepticus Status: Acute Assessment and Plan: 02/10/24: * Patient reported to have 40 minutes of seizure activity at his assisted living facility and received intranasal Versed EN route to the hospital * Neurology consulted * Head CT showed old infarcts involving the thalami, left basal ganglia, and right occipital lobe, stable moderate nonspecific cerebral white matter disease likely representing chronic small-vessel ischemic disease * EEG ordered * Will increase Depakote to 2000 mg t.i.d. per neurology recommendation * Continue Keppra and lacosamide * Continue seizure precautions * Continue neuro checks * Plan for transfer to [facility] when bed available 02/11/24: * Continue with current treatment plan 02/13/24: * Awaiting bed at [facility] * Continue seizure precautions * Continue neuro checks * Continue Depakote 1000 mg TID, per Neurology * Neurology following (2) Acute UTI: Code(s): N39.0 - Urinary tract infection, site not specified Status: Acute Assessment and Plan: 02/13/24: * UA shown 3+ leukocytes, 21-50 urine wbc's, 4+ bacteria * Urine culture showing Pseudomonas aeruginosa * Continue Ceftazidime (3) Cerebrovascular accident: Code(s): I63.9 - Cerebral infarction, unspecified Status: Chronic Assessment and Plan: 02/10/24: * With residual of expressive aphasia, dysphasia, and left-sided weakness * Chronic trach and G-tube 02/13/24: * No change (4) Tracheostomy dependence: Code(s): Z93.0 - Tracheostomy status Status: Chronic Assessment and Plan: 02/10/24: * Currently on high-flow trach collar with a flow rate of 35 % * Trach care daily 02/11/24: * No change to current treatment plan (5) 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 Assessment and Plan: 02/10/24: * Continue Jevity 1.5 tube feeding and free water flushes q.6 hours * Continue Reglan as he history of gastroparesis 02/11/24: * No change to current treatment plan Time Spent With Patient Time with patient: 25 - 35 minutes Subjective Date/time seen: 02/13/24 09:13 Interval history: Interval history: This is a 64-year-old male with a significant past medical history of BPH, CVA with left-sided weakness, COPD, DVT, iron deficiency anemia, gastroparesis, seizure disorder, vascular dementia with psychotic disturbance, left above knee amputation, history of G-tube and tracheostomy, former smoker who presented to the ER on 02/08/2024 for evaluation of seizure from his half-way. He received intranasal Versed while in route to the ED. Patient normally receives all of his care at [facility] and transferred to [facility] was started in the ER however [facility] does not have any beds currently available and he is on the wait list.Workup in the hospital included chest x-ray which was negative for any acute cardiopulmonary process. Initial labs showed a normal white blood cell count of 9.9, platelet count 142, sodium 136. UA showed 3+ leukocytes, 21-50 urine WBC, 4+ urine bacteria. Bowel pork acid 48.6. Urine culture was obtained and is pending. EKG showed normal sinus rhythm with a rate of 95, QTC 390. Neurology seen patient in the emergency room and suggested increasing his Depakote to 2000 mg 3 times a day. Subjective: Labs, cultures, and imaging reviewed. Review of Systems
--- NOTE | 2024-02-13 09:13 | PM.IMPN ---
Progress Note: A&P Assessment and Plan (1) Intractable seizure disorder: Code(s): G40.919 - Epilepsy, unspecified, intractable, without status epilepticus Status: Acute Assessment and Plan: 02/10/24: Patient reported to have 40 minutes of seizure activity at his assisted living facility and received intranasal Versed EN route to the hospital Neurology consulted Head CT showed old infarcts involving the thalami, left basal ganglia, and right occipital lobe, stable moderate nonspecific cerebral white matter disease likely representing chronic small-vessel ischemic disease EEG ordered Will increase Depakote to 2000 mg t.i.d. per neurology recommendation Continue Keppra and lacosamide Continue seizure precautions Continue neuro checks Plan for transfer to [facility] when bed available 02/11/24: Continue with current treatment plan 02/13/24: [facility] Continue seizure precautions Continue neuro checks Continue Depakote 1000 mg TID, per Neurology Neurology following (2) Acute UTI: Code(s): N39.0 - Urinary tract infection, site not specified Status: Acute Assessment and Plan: 02/13/24: UA shown 3+ leukocytes, 21-50 urine wbc's, 4+ bacteria Urine culture showing Pseudomonas aeruginosa Continue Ceftazidime (3) Cerebrovascular accident: Code(s): I63.9 - Cerebral infarction, unspecified Status: Chronic Assessment and Plan: 02/10/24: With residual of expressive aphasia, dysphasia, and left-sided weakness Chronic trach and G-tube 02/13/24: No change (4) Tracheostomy dependence: Code(s): Z93.0 - Tracheostomy status Status: Chronic Assessment and Plan: 02/10/24: Currently on high-flow trach collar with a flow rate of 35 % Trach care daily 02/11/24: No change to current treatment plan (5) 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 Assessment and Plan: 02/10/24: Continue Jevity 1.5 tube feeding and free water flushes q.6 hours Continue Reglan as he history of gastroparesis 02/11/24: No change to current treatment plan Time Spent With Patient Time with patient: 25 - 35 minutes Subjective Date/time seen: 02/13/24 09:13 Interval history: Interval history: This is a 64-year-old male with a significant past medical history of BPH, CVA with left-sided weakness, COPD, DVT, iron deficiency anemia, gastroparesis, seizure disorder, vascular dementia with psychotic disturbance, left above knee amputation, history of G-tube and tracheostomy, former smoker who presented to the ER on 02/08/2024 for evaluation of seizure from his retirement. He received intranasal Versed while in route to the ED. Patient normally receives all of his care at [facility] and transferred to [facility] was started in the ER however [facility] does not have any beds currently available and he is on the wait list.Workup in the hospital included chest x-ray which was negative for any acute cardiopulmonary process. Initial labs showed a normal white blood cell count of 9.9, platelet count 142, sodium 136. UA showed 3+ leukocytes, 21-50 urine WBC, 4+ urine bacteria. Bowel pork acid 48.6. Urine culture was obtained and is pending. EKG showed normal sinus rhythm with a rate of 95, QTC 390. Neurology seen patient in the emergency room and suggested increasing his Depakote to 2000 mg 3 times a day. Subjective: Labs, cultures, and imaging reviewed. Review of Systems Review of Systems: ROS unobtainable: Yes unobtainable due to mental status and other (trach/stroke) Exam Narrative: General: In no acute distress, well nourished Cardiac: Normal S1 and S2. No murmur, gallops or friction rubs, peripheral pulses intact. Respiratory: Lungs clear to auscultation, no adventitious lung sounds, tracheostomy, currently on trach collar Gastrointestinal: soft, non-distended, non-tender, n
[2024-02-13] MEDS: cefTAZidime 2 GM/NS 50 ML 2 GM/50 ML BAG IVPB ×2 (11:36→20:31)
[2024-02-13] MEDS: EUCERIN CREAM 454 GM JAR 1 APPLIC TOPICAL ×2 (11:45→20:32)
--- NOTE | 2024-02-13 17:24 | WPDNEUROPN ---
Progress Note: A&P Assessment and Plan (1) Seizure disorder: Code(s): G40.909 - Epilepsy, unspecified, not intractable, without status epilepticus Status: Chronic (2) Cerebrovascular accident: Code(s): I63.9 - Cerebral infarction, unspecified Status: Chronic Time Spent With Patient Time: The patient has a been accepted at [facility] for further tuning up of his seizure disorder. I have a feeling he will require Trileptal or something along that line but we have kept him on the same medication only increase the dose of Depakote from 750 mg 2000 mg 3 times a day. I discussed it with the nurse practitioner in charge of his case who feels that since they are likely to get a bed in [facility] today the want to take that can since the shelter where the patient resides there skeptical about the prolonged seizures he has been having despite the current medications to see if something else can be done. I am in agreement with that. Subjective Date/time seen: 02/13/24 17:24 Interval history: Patient has not had any seizures since admission. He received a higher dose of Depakote that I initially intended to. The patient was on Depakote 750 mg 3 times a day and I had suggested increase that to 1000 mg 3 times a day however on my note due to voice immigration law specialist it was 2000 mg 3 times a day which he received however no untoward side effects have occurred. I noted that last night and have lowered the dose to 1000 mg 3 times a day. He is also on Vimpat and Keppra as before. No other side effects or problems have been reported. He has been afebrile. Today he is more alert and able to communicate slightly better but he is not able to talk. He did raise his right hand when asked to do so but appears to have weakness in the left side more than the right side. He also has above knee amputation of the left lower limb. Review of Systems Review of Systems: ROS unobtainable: Yes unobtainable due to medical condition Exam Narrative: He appears to be fully conscious but drowsy he does raise his right hand when asked to do so but does not move with the left hand. Unable to move his legs. Above knee amputation the left side no Involuntary movements were seen. Objective Data Vital Signs Vital Signs: Vital Signs - 24 hr 02/12/24 17:26 02/12/24 19:35 02/12/24 20:00 Temperature 97.0 F L Pulse Rate 106 H 129 H Respiratory Rate 20 Blood Pressure 133/90 Pulse Oximetry 93 95 Oxygen Delivery High Flow Therapy with Tr Oxygen Flow Rate 35 Fraction of Inspired Oxygen 21 02/12/24 22:27 02/12/24 20:00 02/12/24 22:00 Temperature Pulse Rate 128 H 114 H Respiratory Rate Blood Pressure Pulse Oximetry 93 Oxygen Delivery High Flow Therapy with Tr Oxygen Flow Rate 35 Fraction of Inspired Oxygen 21 02/12/24 23:23 02/13/24 00:00 02/13/24 00:00 Temperature 98.6 F Pulse Rate 123 H 129 H Respiratory Rate 20 Blood Pressure 126/60 Pulse Oximetry 93 93 Oxygen Delivery High Flow Therapy with Tr Oxygen Flow Rate 35 Fraction of Inspired Oxygen 02/13/24 02:00 02/13/24 03:41 02/13/24 04:00 Temperature 99.1 F Pulse Rate 115 H 120 H Respiratory Rate 20 Blood Pressure 142/91 H Pulse Oximetry 92 93 Oxygen Delivery High Flow Therapy with Tr Oxygen Flow Rate 35 Fraction of Inspired Oxygen 02/13/24 04:00 02/13/24 06:00 02/13/24 07:09 Temperature 99.0 F Pulse Rate 120 H 123 H 126 H Respiratory Rate 20 Blood Pressure 151/75 H Pulse Oximetry 94 Oxygen Delivery Oxygen Flow Rate Fraction of Inspired Oxygen 02/13/24 07:50 02/13/24 08:00 02/13/24 08:00 Temperature Pulse Rate 126 H 126 H Respiratory Rate 20 Blood Pressure Pulse Oximetry 92 92 Oxygen Delivery High Flow Therapy with Tr High Flow Therapy with Tr Oxygen Flow Rate 35 35 Fraction of Inspired Oxygen
[2024-02-13] MEDS: SENNOSIDES 8.6 MG TABLET FEED TUBE (20:31)
[2024-02-13] MEDS: ACETAMINOPHEN 325 MG TABLET 650 MG PO (20:31)
[2024-02-13] MEDS: ATORVASTATIN 40 MG TABLET FEED TUBE (20:32)
[2024-02-13] MEDS: METOPROLOL TARTRATE 50 MG TAB FEED TUBE (20:32)
[2024-02-14] VITALS (18 sets, daily range): BP systolic 103–160; BP diastolic 49–98; PULSE 86–134; RESP 20–24; TEMP 36.5–37.9; O2SAT 92–98
[2024-02-14] MEDS: guaiFENesin 200 MG/10 ML UDC 600 MG FEED TUBE ×3 (06:42→17:30)
[2024-02-14] MEDS: cefTAZidime 2 GM/NS 50 ML 2 GM/50 ML BAG IVPB ×3 (06:42→20:51)
[2024-02-14] MEDS: METOCLOPRAMIDE HCL 10 MG TABLET FEED TUBE ×4 (06:42→20:51)
[2024-02-14] MEDS: VALPROIC ACID LIQ 250 MG/5 ML ORAL SOLUTION UDC 1000 MG FEED TUBE ×3 (06:42→20:50)
--- NOTE | 2024-02-14 09:36 | P.PNIM_ITS ---
Progress Note: A&P Assessment and Plan (1) Intractable seizure disorder: Code(s): G40.919 - Epilepsy, unspecified, intractable, without status epilepticus Status: Acute Assessment and Plan: 02/10/24: * Patient reported to have 40 minutes of seizure activity at his assisted living facility and received intranasal Versed EN route to the hospital * Neurology consulted * Head CT showed old infarcts involving the thalami, left basal ganglia, and right occipital lobe, stable moderate nonspecific cerebral white matter disease likely representing chronic small-vessel ischemic disease * EEG ordered * Will increase Depakote to 2000 mg t.i.d. per neurology recommendation * Continue Keppra and lacosamide * Continue seizure precautions * Continue neuro checks * Plan for transfer to [facility] when bed available 02/11/24: * Continue with current treatment plan 02/13/24: * Awaiting bed at [facility] * Continue seizure precautions * Continue neuro checks * Continue Depakote 1000 mg TID, per Neurology * Neurology following 02/14/24: * Awaiting bed at [facility] * No seizure activity witnessed. * No change to current treatment plan (2) Acute UTI: Code(s): N39.0 - Urinary tract infection, site not specified Status: Acute Assessment and Plan: 02/13/24: * UA shown 3+ leukocytes, 21-50 urine wbc's, 4+ bacteria * Urine culture showing Pseudomonas aeruginosa * Continue Ceftazidime 02/14/24: * No change to current treatment plan (3) Cerebrovascular accident: Code(s): I63.9 - Cerebral infarction, unspecified Status: Chronic Assessment and Plan: 02/10/24: * With residual of expressive aphasia, dysphasia, and left-sided weakness * Chronic trach and G-tube 02/13/24: * No change (4) Tracheostomy dependence: Code(s): Z93.0 - Tracheostomy status Status: Chronic Assessment and Plan: 02/10/24: * Currently on high-flow trach collar with a flow rate of 35 % * Trach care daily 02/11/24: * No change to current treatment plan (5) 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 Assessment and Plan: 02/10/24: * Continue Jevity 1.5 tube feeding and free water flushes q.6 hours * Continue Reglan as he history of gastroparesis 02/11/24: * No change to current treatment plan Time Spent With Patient Time with patient: 15 - 25 minutes Subjective Date/time seen: 02/14/24 09:36 Interval history: This is a 64-year-old male with a significant past medical history of BPH, CVA with left-sided weakness, COPD, DVT, iron deficiency anemia, gastroparesis, seizure disorder, vascular dementia with psychotic disturbance, left above knee amputation, history of G-tube and tracheostomy, former smoker who presented to the ER on 02/08/2024 for evaluation of seizure from his group home. He received intranasal Versed while in route to the ED. Patient normally receives all of his care at [facility] and transferred to [facility] was started in the ER however [facility] does not have any beds currently available and he is on the wait list.Workup in the hospital included chest x-ray which was negative for any acute cardiopulmonary process. Initial labs showed a normal white blood cell count of 9.9, platelet count 142, sodium 136. UA showed 3+ leukocytes, 21-50 urine WBC, 4+ urine bacteria. Bowel pork acid 48.6. Urine culture was obtained and is pending. EKG showed normal sinus rhythm with a rate of 95, QTC 390. Neurology seen patient in the emergency room and
--- NOTE | 2024-02-14 09:36 | PM.IMPN ---
Progress Note: A&P Assessment and Plan (1) Intractable seizure disorder: Code(s): G40.919 - Epilepsy, unspecified, intractable, without status epilepticus Status: Acute Assessment and Plan: 02/10/24: Patient reported to have 40 minutes of seizure activity at his assisted living facility and received intranasal Versed EN route to the hospital Neurology consulted Head CT showed old infarcts involving the thalami, left basal ganglia, and right occipital lobe, stable moderate nonspecific cerebral white matter disease likely representing chronic small-vessel ischemic disease EEG ordered Will increase Depakote to 2000 mg t.i.d. per neurology recommendation Continue Keppra and lacosamide Continue seizure precautions Continue neuro checks Plan for transfer to [facility] when bed available 02/11/24: Continue with current treatment plan 02/13/24: [facility] Continue seizure precautions Continue neuro checks Continue Depakote 1000 mg TID, per Neurology Neurology following 02/14/24: Await[facility] bed at [facility] No seizure activity witnessed. No change to current treatment plan (2) Acute UTI: Code(s): N39.0 - Urinary tract infection, site not specified Status: Acute Assessment and Plan: 02/13/24: UA shown 3+ leukocytes, 21-50 urine wbc's, 4+ bacteria Urine culture showing Pseudomonas aeruginosa Continue Ceftazidime 02/14/24: No change to current treatment plan (3) Cerebrovascular accident: Code(s): I63.9 - Cerebral infarction, unspecified Status: Chronic Assessment and Plan: 02/10/24: With residual of expressive aphasia, dysphasia, and left-sided weakness Chronic trach and G-tube 02/13/24: No change (4) Tracheostomy dependence: Code(s): Z93.0 - Tracheostomy status Status: Chronic Assessment and Plan: 02/10/24: Currently on high-flow trach collar with a flow rate of 35 % Trach care daily 02/11/24: No change to current treatment plan (5) 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 Assessment and Plan: 02/10/24: Continue Jevity 1.5 tube feeding and free water flushes q.6 hours Continue Reglan as he history of gastroparesis 02/11/24: No change to current treatment plan Time Spent With Patient Time with patient: 15 - 25 minutes Subjective Date/time seen: 02/14/24 09:36 Interval history: This is a 64-year-old male with a significant past medical history of BPH, CVA with left-sided weakness, COPD, DVT, iron deficiency anemia, gastroparesis, seizure disorder, vascular dementia with psychotic disturbance, left above knee amputation, history of G-tube and tracheostomy, former smoker who presented to the ER on 02/08/2024 for evaluation of seizure from his long term. He received intranasal Versed while in route to the ED. Patient normally receives all of his care at [facility] and transferred to [facility] was started in the ER however [facility] does not have any beds currently available and he is on the wait list.Workup in the hospital included chest x-ray which was negative for any acute cardiopulmonary process. Initial labs showed a normal white blood cell count of 9.9, platelet count 142, sodium 136. UA showed 3+ leukocytes, 21-50 urine WBC, 4+ urine bacteria. Bowel pork acid 48.6. Urine culture was obtained and is pending. EKG showed normal sinus rhythm with a rate of 95, QTC 390. Neurology seen patient in the emergency room and suggested increasing his Depakote to 1000 mg 3 times a day. Subjective: Labs, cultures, reviewed. Patient is still minimally interactive. He is alert and will follow with eyes. Review of Systems Review of Systems: ROS unobtainable: Yes unobtainable due to mental status and other (trach/stroke) Exam Narrative: General: In no acute distress, well nourished Cardiac: Normal S1 and S2. No murmur, gallops or fri
[2024-02-14] MEDS: ENOXAPARIN 40 MG/0.4 ML SYRINGE SUB-Q (09:39)
[2024-02-14] MEDS: levETIRAcetam ORAL SOL 500 MG/5 ML UDC 2000 MG FEED TUBE ×2 (09:39→20:49)
[2024-02-14] MEDS: ASPIRIN 81 MG CHEWABLE TABLET FEED TUBE (09:39)
[2024-02-14] MEDS: FERROUS SULFATE LIQUID 220 MG/5 ML ELIXIR FEED TUBE (09:39)
[2024-02-14] MEDS: LACOSAMIDE (*CRX) 200 MG TABLET FEED TUBE ×2 (09:39→20:51)
[2024-02-14] MEDS: FOLIC ACID 1 MG TABLET FEED TUBE (09:40)
[2024-02-14] MEDS: cloBAZam (*CRX) 10 MG TABLET FEED TUBE (09:40)
[2024-02-14] MEDS: PANTOPRAZOLE 40 MG TABLET PO (09:40)
[2024-02-14] MEDS: METOPROLOL TARTRATE 50 MG TAB FEED TUBE ×2 (09:40→20:51)
[2024-02-14] MEDS: THIAMINE HCL 100 MG TABLET FEED TUBE (09:40)
[2024-02-14] MEDS: FAMOTIDINE 20 MG TABLET FEED TUBE ×2 (09:40→20:51)
[2024-02-14] MEDS: EUCERIN CREAM 454 GM JAR 1 APPLIC TOPICAL ×2 (09:42→20:58)
--- NOTE | 2024-02-14 12:32 | PCNFU ---
Nutrition Follow-Up Complete: Inability to meet nutrition needs PO related to dysphagia as evidenced by need for PEG tube feedings Goal:Tolerate tube feedings at goal rate Pt meeting goal. Continue with same goal Pt current nutrition is Jevity 1.5 @ 50ml/hr = 1650kcals, 70g protein. Nutrition recommendation: continue with current plan of care. Last recorded weight is 71.1 kg. Bowel Motility: +BM 02/12 Labs Reviewed: HGb:13.4, HCT:41, Cr:0.6. Meds Noted: reglan, zofran, protonix, senna, miralax Skin: WNL Additional Notes: Pt continues on a same tube feeding, running at goal rate. Pt tolerating well. Agree with orders. Monitoring tube feeding tolerance, labs, weights, plan of care Follow up Tuesday and Tuesday per policy
[2024-02-14] MEDS: ACETAMINOPHEN 325 MG TABLET 650 MG PO (20:49)
[2024-02-14] MEDS: SENNOSIDES 8.6 MG TABLET FEED TUBE (20:51)
[2024-02-14] MEDS: ATORVASTATIN 40 MG TABLET FEED TUBE (20:51)
[2024-02-15] VITALS (28 sets, daily range): BP systolic 123–146; BP diastolic 60–85; PULSE 63–107; RESP 18–24; TEMP 36.8–37.6; O2SAT 93–98
[2024-02-15] MEDS: guaiFENesin 200 MG/10 ML UDC 600 MG FEED TUBE ×5 (00:08→23:34)
[2024-02-15] MEDS: VALPROIC ACID LIQ 250 MG/5 ML ORAL SOLUTION UDC 1000 MG FEED TUBE ×3 (05:37→20:30)
[2024-02-15] MEDS: LANSOPRAZOLE ODT 30 MG TAB.RAP.DR FEED TUBE (05:37)
[2024-02-15] MEDS: METOCLOPRAMIDE HCL 10 MG TABLET FEED TUBE ×4 (05:37→20:31)
[2024-02-15] MEDS: cefTAZidime 2 GM/NS 50 ML 2 GM/50 ML BAG IVPB ×3 (05:38→20:31)
[2024-02-15] MEDS: levETIRAcetam ORAL SOL 500 MG/5 ML UDC 2000 MG FEED TUBE ×2 (08:45→20:30)
[2024-02-15] MEDS: ASPIRIN 81 MG CHEWABLE TABLET FEED TUBE (08:45)
[2024-02-15] MEDS: polyethylene glycoL 3350 17 GM POWD.PACK FEED TUBE (08:45)
[2024-02-15] MEDS: LACOSAMIDE (*CRX) 200 MG TABLET FEED TUBE ×2 (08:45→20:30)
[2024-02-15] MEDS: cloBAZam (*CRX) 10 MG TABLET FEED TUBE (08:45)
[2024-02-15] MEDS: EUCERIN CREAM 454 GM JAR 1 APPLIC TOPICAL ×2 (08:45→20:32)
[2024-02-15] MEDS: FERROUS SULFATE LIQUID 220 MG/5 ML ELIXIR FEED TUBE (08:45)
[2024-02-15] MEDS: ENOXAPARIN 40 MG/0.4 ML SYRINGE SUB-Q (08:45)
[2024-02-15] MEDS: METOPROLOL TARTRATE 50 MG TAB FEED TUBE ×2 (08:45→20:31)
[2024-02-15] MEDS: FOLIC ACID 1 MG TABLET FEED TUBE (08:45)
[2024-02-15] MEDS: THIAMINE HCL 100 MG TABLET FEED TUBE (08:45)
[2024-02-15] MEDS: FAMOTIDINE 20 MG TABLET FEED TUBE ×2 (08:45→20:31)
--- NOTE | 2024-02-15 09:01 | P.PNIM_ITS ---
Progress Note: A&P Assessment and Plan (1) Intractable seizure disorder: Code(s): G40.919 - Epilepsy, unspecified, intractable, without status epilepticus Status: Acute Assessment and Plan: 02/10/24: * Patient reported to have 40 minutes of seizure activity at his assisted living facility and received intranasal Versed EN route to the hospital * Neurology consulted * Head CT showed old infarcts involving the thalami, left basal ganglia, and right occipital lobe, stable moderate nonspecific cerebral white matter disease likely representing chronic small-vessel ischemic disease * EEG ordered * Will increase Depakote to 2000 mg t.i.d. per neurology recommendation * Continue Keppra and lacosamide * Continue seizure precautions * Continue neuro checks * Plan for transfer to [facility] when bed available 02/11/24: * Continue with current treatment plan 02/13/24: * Awaiting bed at [facility] * Continue seizure precautions * Continue neuro checks * Continue Depakote 1000 mg TID, per Neurology * Neurology following 02/14/24: * Awaiting bed at [facility] * No seizure activity witnessed. * No change to current treatment plan 02/15/24: * Awaiting bed at [facility] for continuous EEG * No change to current treatment plan (2) Mucus plugging of bronchi: Code(s): T17.500A - Unspecified foreign body in bronchus causing asphyxiation, initial encounter Status: Resolved Assessment and Plan: 02/15/24: * Chest x-ray showing near complete opacification of right hemithorax with volume loss, likely mucous plugging * Pulmonology was consulted * Patient placed on Guaifenesin, Duoneb breathing treatments, Mucomyst treatments, and chest PT with vest * No antibiotics for now * Keep right lung up as tolerated * q1h suctioning * Will get another chest x-ray in the morning. (3) Acute UTI: Code(s): N39.0 - Urinary tract infection, site not specified Status: Acute Assessment and Plan: 02/13/24: * UA shown 3+ leukocytes, 21-50 urine wbc's, 4+ bacteria * Urine culture showing Pseudomonas aeruginosa * Continue Ceftazidime 02/14/24: * No change to current treatment plan (4) Cerebrovascular accident: Code(s): I63.9 - Cerebral infarction, unspecified Status: Chronic Assessment and Plan: 02/10/24: * With residual of expressive aphasia, dysphasia, and left-sided weakness * Chronic trach and G-tube 02/13/24: * No change (5) Tracheostomy dependence: Code(s): Z93.0 - Tracheostomy status Status: Chronic Assessment and Plan: 02/10/24: * Currently on high-flow trach collar with a flow rate of 35 % * Trach care daily 02/11/24: * No change to current treatment plan (6) 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 Assessment and Plan: 02/10/24: * Continue Jevity 1.5 tube feeding and free water flushes q.6 hours * Continue Reglan as he history of gastroparesis 02/11/24: * No change to current treatment plan Time Spent With Patient Time with patient: 15 - 25 minutes Subjective Date/time seen: 02/15/24 09:01 Interval history: Interval history: This is a 64-year-old male with a significant past medical history of BPH, CVA with left-sided weakness, COPD, DVT, iron deficiency anemia, gastroparesis, seizure disorder, vascular dementia with psychotic disturbance, left above knee amputation, history of G-tube and tracheostomy, former smoker who presented to the ER on
--- NOTE | 2024-02-15 09:01 | PM.IMPN ---
Progress Note: A&P Assessment and Plan (1) Intractable seizure disorder: Code(s): G40.919 - Epilepsy, unspecified, intractable, without status epilepticus Status: Acute Assessment and Plan: 02/10/24: Patient reported to have 40 minutes of seizure activity at his assisted living facility and received intranasal Versed EN route to the hospital Neurology consulted Head CT showed old infarcts involving the thalami, left basal ganglia, and right occipital lobe, stable moderate nonspecific cerebral white matter disease likely representing chronic small-vessel ischemic disease EEG ordered Will increase Depakote to 2000 mg t.i.d. per neurology recommendation Continue Keppra and lacosamide Continue seizure precautions Continue neuro checks Plan for transfer to [facility] when bed available 02/11/24: Continue with current treatment plan 02/13/24: [facility] Continue seizure precautions Continue neuro checks Continue Depakote 1000 mg TID, per Neurology Neurology following 02/14/24: Await[facility] bed at [facility] No seizure activity witnessed. No change to current treatment plan 02/15/24: [facility] for continuous EEG No change to current treatment plan (2) Mucus plugging of bronchi: Code(s): T17.500A - Unspecified foreign body in bronchus causing asphyxiation, initial encounter Status: Resolved Assessment and Plan: 02/15/24: Chest x-ray showing near complete opacification of right hemithorax with volume loss, likely mucous plugging Pulmonology was consulted Patient placed on Guaifenesin, Duoneb breathing treatments, Mucomyst treatments, and chest PT with vest No antibiotics for now Keep right lung up as tolerated q1h suctioning Will get another chest x-ray in the morning. (3) Acute UTI: Code(s): N39.0 - Urinary tract infection, site not specified Status: Acute Assessment and Plan: 02/13/24: UA shown 3+ leukocytes, 21-50 urine wbc's, 4+ bacteria Urine culture showing Pseudomonas aeruginosa Continue Ceftazidime 02/14/24: No change to current treatment plan (4) Cerebrovascular accident: Code(s): I63.9 - Cerebral infarction, unspecified Status: Chronic Assessment and Plan: 02/10/24: With residual of expressive aphasia, dysphasia, and left-sided weakness Chronic trach and G-tube 02/13/24: No change (5) Tracheostomy dependence: Code(s): Z93.0 - Tracheostomy status Status: Chronic Assessment and Plan: 02/10/24: Currently on high-flow trach collar with a flow rate of 35 % Trach care daily 02/11/24: No change to current treatment plan (6) 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 Assessment and Plan: 02/10/24: Continue Jevity 1.5 tube feeding and free water flushes q.6 hours Continue Reglan as he history of gastroparesis 02/11/24: No change to current treatment plan Time Spent With Patient Time with patient: 15 - 25 minutes Subjective Date/time seen: 02/15/24 09:01 Interval history: Interval history: This is a 64-year-old male with a significant past medical history of BPH, CVA with left-sided weakness, COPD, DVT, iron deficiency anemia, gastroparesis, seizure disorder, vascular dementia with psychotic disturbance, left above knee amputation, history of G-tube and tracheostomy, former smoker who presented to the ER on 02/08/2024 for evaluation of seizure from his [facility]. He received intranasal Versed while in route to the ED. Patient normally receives all of his care at [facility] and transferred to [facility] was started in the ER however [facility] does not have any beds currently available and he is on the wait list.Workup in the hospital included chest x-ray which was negative for any acute cardiopulmonary process. Initial labs showed a normal white blood cell count of 9.9, platelet count 142,
[2024-02-15 09:32] LABS: Basophils Percent Auto 0.1 % (0.2-1.2); Eosinophils Absolute Auto 0.3 K/mm3 (0-0.3); Eosinophils Percent Auto 2.6 % (0-4.4); Immature Granulocyte Absolute 0.03 K/mm3 (0.00-0.031); Immature Granulocyte Percent A 0.3 % (0-0.5); Immature Platelet Fraction Pct 17.8 % (0.9-11.2); Lymphocytes Absolute Auto 2.19 K/mm3 (0.9-3.2); Lymphocytes Percent Auto 23.2 % (18.3-44.2); Mean Corpuscular HGB Conc 33.3 g/dl (32-36); Mean Corpuscular Hemoglobin 33.7 pg (26-34); Mean Corpuscular Volume 101.1 fl (80-100); Monocytes Percent Auto 10.1 % (2.6-8.5); Neutrophils Percent Auto 63.7 % (45.5-73.1); Platelet Count Result 97 k/mm3 (150-375); Red Blood Count 3.56 M/mm3 (4.6-6.20); Red Cell Distribution Width 13.5 % (11.5-14.5); White Blood Count 9.4 K/mm3 (4.5-10.0)
[2024-02-15 10:38] LABS: Platelet Estimate Decreased (Adequate)
[2024-02-15 10:39] LABS: Schistocytes None Seen
--- NOTE | 2024-02-15 11:06 | PM.CNPUL ---
Assessment and Plan Assessment and plan (1) Lung collapse: Code(s): J98.19 - Other pulmonary collapse Status: Acute Assessment and Plan: Patient with a history of stroke and chronic tracheostomy and PEG tube and history of right lung atelectasis -collapse from mucus plugging in 02/2023. currently admitted with seizures and had a clear chest x-ray on 02/08/2024. patient had a fever and increased FiO2 requirements to 36% on 02/12. Chest x-ray on 02/[address], white out of the right lung with shift of the mediastinum to the right. He remains afebrile since 02/13, no leukocytosis, and a oxygenation has improved since 02/12 and currently he is on room air. Etiology of patient's right lung white out is mucus plugging. Plan: I have ordered chest x-ray for today. I agree with aggressive suctioning at this time. Currently the bedside nurse why spoke to his suctioning the patient approximately every hour. I spoke with respiratory therapy and he is getting vest treatment for 10 minutes Q6 with suctioning before and after. The nurse tells me his secretions are thinner and less volume today. Agree with guaifenesin 600 mg q.6 hours per feeding tube. I will add DuoNebs q.6 hours and Mucomyst 200 mg q.6 hours. I have asked the bedside nurse and respiratory therapy to try to place the patient with his left lung down. The patient has no white blood cell count, oxygenation has improved over the last 36 hours and he has been afebrile the last 24 hours. At this time I do not feel a need to initiate or escalate his antibiotics for possible pneumonia. I will send a sputum for Gram stain and culture. I will check a CXR and procalcitonin on 02/16/24. Discussed with Angela Jamse, will follow with you. History of Present Illness History of Present Illness Consult date: 02/15/24 Chief complaint: Seizure Disorder Narrative: 02/15/2024: This is a new pulmonary consult for mucus plugging. 64-year-old with a history of CVA with left-sided weakness, seizures, vascular dementia, tracheostomy and PEG tube, DVT, gastroparesis, left above the knee amputation who [facility] a [facility]. The patient has a history of chronic pneumonias as well as mucus plugging in the past (02/2023). last documentation in our medical system was that he had his child Paris 7.5 inner diameter cuffless that was new from 03/25/2023. On 02/08/2024 the patient presented with seizures from the [facility]. He had been followed at [facility] and was listed for transfer to that facility and was accepted although there were no beds available. Neurology was consulted and the plan was to increase his dose of Depakote to 2000 mg 3 times a day, continue Keppra and lacosamide. At our hospital week give the patient high-flow oxygen with an Airvo on his trach collar to provide humidity and he was requiring 35 L and 30% FiO2 with saturations 100%. chest x-ray showed tracheostomy with no acute cardiopulmonary changes. urine culture showed Pseudomonas resistant to ciprofloxacin and levofloxacin, intermediate to imipenem, sensitive to ceftazidime and and he was started on ceftazidime. 02/09/2024: Guaifenesin 600 mg per feeding tube q.6 hours. 02/10/2024 decreased to high-flow 35 L with 21% FiO2, MRSA nasal swab positive 02/13/24: Neurology: I noted that last night and have lowered the dose to 1000 mg 3 times a day. He is also on Vimpat and Keppra as before. No other side effects or problems have been reported. He has been afebrile. Today he is more alert and able to communicate slightly better but he is not able to talk. He did raise his right hand when asked to do so but appears to have weakness in the left side more than the right side. He also has above knee amputation of the left lower limb. FiO2 increased to 36%. Chest physiotherapy with percussion, vibration and postural drainage started at 20:45. lauren
[2024-02-15 11:59] LABS: Alanine Aminotransferase 13 U/L (6-50); Albumin Level 3.2 g/dL (3.5-5.1); Alkaline Phosphatase 73 U/L (38-126); Anion Gap 5 mmol/L (4-12); Aspartate Amino Transferase 23 U/L (17-59); Bilirubin,Total 0.4 mg/dL (0.2-1.3); Blood Urea Nitrogen 13 mg/dL (9-20); Calcium 8.6 mg/dL (8.4-10.2); Carbon Dioxide 31 mmol/L (22-30); Chloride 95 mmol/L (98-107); Estimated CRCL calculation 130 ml/min; Estimated Glomerular Filt Rate > 60; Glucose 109 mg/dL (65-110); Potassium 3.8 mmol/L (3.4-5.0); Sodium 131 mmol/L (137-145)
[2024-02-15] MEDS: ACETYLCYSTEINE 20% INHAL SOLN 800 MG/4 ML VIAL 200 MG INHALATION ×2 (12:59→20:17)
[2024-02-15] MEDS: IPRATROPIUM 0.5 MG/ALBUTEROL SULFATE 2.5 MG AMPUL.NEB 3 ML INHALATION ×2 (12:59→20:17)
[2024-02-15] MEDS: ATORVASTATIN 40 MG TABLET FEED TUBE (20:31)
[2024-02-15] MEDS: SENNOSIDES 8.6 MG TABLET FEED TUBE (20:32)
[2024-02-16] VITALS (25 sets, daily range): BP systolic 128–153; BP diastolic 77–93; PULSE 82–112; RESP 18–24; TEMP 36.6–37; O2SAT 91–98
[2024-02-16] MEDS: IPRATROPIUM 0.5 MG/ALBUTEROL SULFATE 2.5 MG AMPUL.NEB 3 ML INHALATION ×4 (02:20→19:43)
[2024-02-16] MEDS: ACETYLCYSTEINE 20% INHAL SOLN 800 MG/4 ML VIAL 200 MG INHALATION (02:20)
[2024-02-16] MEDS: guaiFENesin 200 MG/10 ML UDC 600 MG FEED TUBE ×3 (05:25→17:30)
[2024-02-16] MEDS: METOCLOPRAMIDE HCL 10 MG TABLET FEED TUBE ×4 (05:25→19:44)
[2024-02-16] MEDS: LANSOPRAZOLE ODT 30 MG TAB.RAP.DR FEED TUBE (05:25)
[2024-02-16] MEDS: VALPROIC ACID LIQ 250 MG/5 ML ORAL SOLUTION UDC 1000 MG FEED TUBE ×3 (05:26→19:42)
[2024-02-16] MEDS: cefTAZidime 2 GM/NS 50 ML 2 GM/50 ML BAG IVPB ×3 (05:26→19:44)
[2024-02-16 05:30] LABS: Basophils Percent Auto 0.3 % (0.2-1.2); Eosinophils Absolute Auto 0.3 K/mm3 (0-0.3); Hematocrit 33.4 % (42.0-52.0); Hemoglobin 10.8 g/dL (14.0-18.0); Immature Granulocyte Absolute 0.01 K/mm3 (0.00-0.031); Immature Granulocyte Percent A 0.2 % (0-0.5); Immature Platelet Fraction Pct 16.1 % (0.9-11.2); Lymphocytes Absolute Auto 1.92 K/mm3 (0.9-3.2); Lymphocytes Percent Auto 30.8 % (18.3-44.2); Mean Corpuscular HGB Conc 32.3 g/dl (32-36); Mean Corpuscular Hemoglobin 32.4 pg (26-34); Mean Corpuscular Volume 100.3 fl (80-100); Monocytes Absolute Auto 0.6 K/mm3 (0.1-0.6); Monocytes Percent Auto 10.3 % (2.6-8.5); Neutrophils Absolute Auto 3.4 K/mm3 (1.3-6.7); Neutrophils Percent Auto 54.4 % (45.5-73.1); Nucleated Red Blood Cells Perc 0.3 % (0.0-0.2); Red Blood Count 3.33 M/mm3 (4.6-6.20); Red Cell Distribution Width 13.1 % (11.5-14.5); White Blood Count 6.2 K/mm3 (4.5-10.0)
[2024-02-16 05:49] LABS: Alanine Aminotransferase 15 U/L (6-50); Albumin Level 3.1 g/dL (3.5-5.1); Alkaline Phosphatase 74 U/L (38-126); Anion Gap 7 mmol/L (4-12); Aspartate Amino Transferase 28 U/L (17-59); Bilirubin,Total 0.2 mg/dL (0.2-1.3); Blood Urea Nitrogen 13 mg/dL (9-20); Calcium 8.9 mg/dL (8.4-10.2); Carbon Dioxide 30 mmol/L (22-30); Chloride 100 mmol/L (98-107); Estimated CRCL calculation 111 ml/min; Estimated Glomerular Filt Rate > 60; Glucose 125 mg/dL (65-110); Platelet Count Result 95 k/mm3 (150-375); Potassium 3.8 mmol/L (3.4-5.0); Sodium 137 mmol/L (137-145)
[2024-02-16 07:44] LABS: Procalcitonin 0.1 ng/mL
--- NOTE | 2024-02-16 08:04 | PM.PNPUL ---
Progress Note: A&P Assessment and Plan (1) Lung collapse: Code(s): J98.19 - Other pulmonary collapse Status: Acute Assessment and Plan: Patient with a history of stroke and chronic tracheostomy and PEG tube and history of right lung atelectasis -collapse from mucus plugging in 02/2023. currently admitted with seizures and had a clear chest x-ray on 02/08/2024. patient had a fever and increased FiO2 requirements to 36% on 02/12. Chest x-ray on 02/[address], white out of the right lung with shift of the mediastinum to the right. He remains afebrile since 02/13, no leukocytosis, and a oxygenation has improved since 02/12 and currently he is on room air. 02/15/24: Etiology of patient's right lung white out is mucus plugging. Plan: I have ordered chest x-ray for today. I agree with aggressive suctioning at this time. Currently the bedside nurse why spoke to his suctioning the patient approximately every hour. I spoke with respiratory therapy and he is getting vest treatment for 10 minutes Q6 with suctioning before and after. The nurse tells me his secretions are thinner and less volume today. Agree with guaifenesin 600 mg q.6 hours per feeding tube. I will add DuoNebs q.6 hours and Mucomyst 200 mg q.6 hours. I have asked the bedside nurse and respiratory therapy to try to place the patient with his left lung down. The patient has no white blood cell count, oxygenation has improved over the last 36 hours and he has been afebrile the last 24 hours. At this time I do not feel a need to initiate or escalate his antibiotics for possible pneumonia. I will send a sputum for Gram stain and culture. I will check a CXR and procalcitonin on 02/16/24. Later in the day Prior to the addition of DuoNebs and Mucomyst, the chest x-ray that I ordered demonstrated re-expansion of the right lung with bibasilar interstitial infiltrates. 02/16/24: Patient more awake today. Attempting to say hello. Raises his right arm and shows 2 fingers to verbal command. Moves his legs and attempts to wiggle his toes to command. Afebrile. White blood cell count 6.2, creatinine 0.6. Currently he is on high-flow nasal cannula oxygen to provide humidity to his trach collar with room air and saturations are 94%. Chest x-ray today shows tracheostomy with bibasilar interstitial infiltrates with no evidence of lobar collapse. I suction him through his tracheostomy and he had scant secretions. Plan: patient has re-expanded his right lung and currently has bibasilar infiltrates likely related to atelectasis. He is afebrile, remains on room air, no leukocytosis, procalcitonin 0.1. I do not think he has a pneumonia. Would continue with suctioning q.1-2 hour, guaifenesin 600 per tube Q 6, vest treatment 3 times a day, DuoNebs q.6 hours for another 24 hours then DC. I will discontinue Mucomyst. I spoke with the nurse and again encouraged them to position the patient with the right lung up. Discussed with Angela James, will sign off, call with questions. Subjective Date/time seen: 02/16/24 08:04 Interval history: 02/15/2024: This is a new pulmonary consult for mucus plugging. 64-year-old with a history of CVA with left-sided weakness, seizures, vascular dementia, tracheostomy and PEG tube, DVT, gastroparesis, left above the knee amputation [facility]. The patient has a history of chronic pneumonias as well as mucus plugging in the past (02/2023). last documentation in our medical system was that he had his child Paris 7.5 inner diameter cuffless that was new from 03/25/2023. On 02/08/2024 the [facility]. He had been followed at [facility] and was listed for transfer to that facility and was accepted although there were no beds available. Neurology was consulted and the plan was to increase his dose of Depakote to 2000 mg 3 liya
[2024-02-16] MEDS: FERROUS SULFATE LIQUID 220 MG/5 ML ELIXIR FEED TUBE (10:16)
[2024-02-16] MEDS: ASPIRIN 81 MG CHEWABLE TABLET FEED TUBE (10:16)
[2024-02-16] MEDS: ENOXAPARIN 40 MG/0.4 ML SYRINGE SUB-Q (10:16)
[2024-02-16] MEDS: cloBAZam (*CRX) 10 MG TABLET FEED TUBE ×2 (10:16→19:41)
[2024-02-16] MEDS: LACOSAMIDE (*CRX) 200 MG TABLET FEED TUBE ×2 (10:17→19:41)
[2024-02-16] MEDS: levETIRAcetam ORAL SOL 500 MG/5 ML UDC 2000 MG FEED TUBE ×2 (10:17→19:42)
[2024-02-16] MEDS: METOPROLOL TARTRATE 50 MG TAB FEED TUBE ×2 (10:17→19:40)
[2024-02-16] MEDS: THIAMINE HCL 100 MG TABLET FEED TUBE (10:17)
[2024-02-16] MEDS: FAMOTIDINE 20 MG TABLET FEED TUBE ×2 (10:17→19:42)
[2024-02-16] MEDS: FOLIC ACID 1 MG TABLET FEED TUBE (10:17)
[2024-02-16] MEDS: polyethylene glycoL 3350 17 GM POWD.PACK FEED TUBE (10:23)
[2024-02-16] MEDS: EUCERIN CREAM 454 GM JAR 1 APPLIC TOPICAL ×2 (10:23→19:41)
--- NOTE | 2024-02-16 10:57 | P.PNIM_ITS ---
Progress Note: A&P Assessment and Plan (1) Intractable seizure disorder: Code(s): G40.919 - Epilepsy, unspecified, intractable, without status epilepticus Status: Acute Assessment and Plan: 02/10/24: * Patient reported to have 40 minutes of seizure activity at his assisted living facility and received intranasal Versed EN route to the hospital * Neurology consulted * Head CT showed old infarcts involving the thalami, left basal ganglia, and right occipital lobe, stable moderate nonspecific cerebral white matter disease likely representing chronic small-vessel ischemic disease * EEG ordered * Will increase Depakote to 2000 mg t.i.d. per neurology recommendation * Continue Keppra and lacosamide * Continue seizure precautions * Continue neuro checks * Plan for transfer to [facility] when bed available 02/11/24: * Continue with current treatment plan 02/13/24: * Awaiting bed at [facility] * Continue seizure precautions * Continue neuro checks * Continue Depakote 1000 mg TID, per Neurology * Neurology following 02/14/24: * Awaiting bed at [facility] * No seizure activity witnessed. * No change to current treatment plan 02/15/24: * Awaiting bed at [facility] for continuous EEG * No change to current treatment plan 02/16/24: * Call placed to [facility] this morning however they are still at capacity and awaiting discharges * Called [facility] transfer [place] and spoke with Dr. Ceron who denied patient transfer considering the patient is stable and on the list at [facility] * Call placed to [facility] and awaiting a phone call back * Spoke with Michaela at [facility] Neurology office and received a phone call back from the seizure team who recommended going up on his Clobazam to BID otherwise he is completely maxed on all of his medications. They are still recommending a 24 hour EEG. * Spoke with Dr. Ramos our neurologist and he placed order for EEG here however this is not a 24 hour EEG. * Will recheck Valporic acid level now * Continue Neuro checks (2) Mucus plugging of bronchi: Code(s): T17.500A - Unspecified foreign body in bronchus causing asphyxiation, initial encounter Status: Resolved Assessment and Plan: 02/15/24: * Chest x-ray showing near complete opacification of right hemithorax with volume loss, likely mucous plugging * Pulmonology was consulted * Patient placed on Guaifenesin, Duoneb breathing treatments, Mucomyst treatments, and chest PT with vest * No antibiotics for now * Keep right lung up as tolerated * q1h suctioning * Will get another chest x-ray in the morning. 02/16/24: * Chest x-ray showing improvement * Pulmonology recommending continuing DuoNebs for another day, discontinuing Mucomyst, continue guaifenesin, chest PT with vest, and sectioning Q 1-2 hours. (3) Acute UTI: Code(s): N39.0 - Urinary tract infection, site not specified Status: Acute Assessment and Plan: 02/13/24: * UA shown 3+ leukocytes, 21-50 urine wbc's, 4+ bacteria * Urine culture showing Pseudomonas aeruginosa * Continue Ceftazidime 02/14/24: * No change to current treatment plan (4) Cerebrovascular accident: Code(s): I63.9 - Cerebral infarction, unspecified Status: Chronic Assessment and Plan: 02/10/24: * With residual of expressive aphasia, dysphasia, and left-sided weakness * Chronic trach and G-tube 02/13/24: * No change (5) Tracheostomy dependence: Code(s): Z93.0 - Tracheostomy status Status: Chronic Assessment and Pl
--- NOTE | 2024-02-16 10:57 | PM.IMPN ---
Progress Note: A&P Assessment and Plan (1) Intractable seizure disorder: Code(s): G40.919 - Epilepsy, unspecified, intractable, without status epilepticus Status: Acute Assessment and Plan: 02/10/24: Patient reported to have 40 minutes of seizure activity at his assisted living facility and received intranasal Versed EN route to the hospital Neurology consulted Head CT showed old infarcts involving the thalami, left basal ganglia, and right occipital lobe, stable moderate nonspecific cerebral white matter disease likely representing chronic small-vessel ischemic disease EEG ordered Will increase Depakote to 2000 mg t.i.d. per neurology recommendation Continue Keppra and lacosamide Continue seizure precautions Continue neuro checks Plan for transfer to [facility] when bed available 02/11/24: Continue with current treatment plan 02/13/24: Awaiting bed at [facility] Continue seizure precautions Continue neuro checks Continue Depakote 1000 mg TID, per Neurology Neurology following 02/14/24: Awaiting bed at [facility] No seizure activity witnessed. No change to current treatment plan 02/15/24: Awaiting bed at [facility] for continuous EEG No change to current treatment plan 02/16/24: Call placed to [facility] this morning however they are still at capacity and awaiting discharges Called [facility] transfer [place] and spoke with Dr. Ceron who denied patient transfer considering the patient is stable and on the list at [facility] Call placed to [facility] transfer [place] and awaiting a phone call back Spoke with Michaela at [facility] Neurology office and received a phone call back from the seizure team who recommended going up on his Clobazam to BID otherwise he is completely maxed on all of his medications. They are still recommending a [address] Ramos our neurologist and he placed order for EEG here however this is not a 24 hour EEG. Will recheck Valporic acid level now Continue Neuro checks (2) Mucus plugging of bronchi: Code(s): T17.500A - Unspecified foreign body in bronchus causing asphyxiation, initial encounter Status: Resolved Assessment and Plan: 02/15/24: Chest x-ray showing near complete opacification of right hemithorax with volume loss, likely mucous plugging Pulmonology was consulted Patient placed on Guaifenesin, Duoneb breathing treatments, Mucomyst treatments, and chest PT with vest No antibiotics for now Keep right lung up as tolerated q1h suctioning Will get another chest x-ray in the morning. 02/16/24: Chest x-ray showing improvement Pulmonology recommending continuing DuoNebs for another day, discontinuing Mucomyst, continue guaifenesin, chest PT with vest, and sectioning Q 1-2 hours. (3) Acute UTI: Code(s): N39.0 - Urinary tract infection, site not specified Status: Acute Assessment and Plan: 02/13/24: UA shown 3+ leukocytes, 21-50 urine wbc's, 4+ bacteria Urine culture showing Pseudomonas aeruginosa Continue Ceftazidime 02/14/24: No change to current treatment plan (4) Cerebrovascular accident: Code(s): I63.9 - Cerebral infarction, unspecified Status: Chronic Assessment and Plan: 02/10/24: With residual of expressive aphasia, dysphasia, and left-sided weakness Chronic trach and G-tube 02/13/24: No change (5) Tracheostomy dependence: Code(s): Z93.0 - Tracheostomy status Status: Chronic Assessment and Plan: 02/10/24: Currently on high-flow trach collar with a flow rate of 35 % Trach care daily 02/11/24: No change to current treatment plan (6) 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 Assessment and Plan: 02/10/24: Continue Jevity 1.5 tube feeding and free water flushes q.6 hours Continue Reglan as he history of gastroparesis 02/11/24: No change to current treatment plan Time Spent With Lalit
[2024-02-16 12:07] LABS: Valproic Acid 74.8 ug/mL (50-120)
--- NOTE | 2024-02-16 12:31 | P.NEURO_ITS ---
Neurology EEG Report General Information Date of Study: 02/16/24 TEST Electroencephalogram DIAGNOSIS seizure disorder, cerebrovascular disease CONDITION OF RECORDING bedside recording EEG NUMBER [id number] CLINICAL HISTORY the patient is 64-year-old with history of seizure disorder and stroke with left-sided weakness EEG DESCRIPTION During wakefulness the background activity consists of predominantly theta activity at 7 hertz with an amplitude of 15-35 microvolts which appears moderately formed. Anteriorly low amplitude mixed frequency activity is seen. Blink artifacts are seen throughout the recording. Patient was briefly drowsy h owever did not progress to stage 2 sleep. Hyperventilation or 40 switch were not performed. IMPRESSION This is a mild abnormal EEG due to presence of diffuse background slowing see history of generalized encephalopathy. No focal or paroxysmal epileptiform abnormality was seen.
--- NOTE | 2024-02-16 12:33 | WPDNEUROPN ---
Progress Note: A&P Assessment and Plan (1) Seizure disorder: Code(s): G40.909 - Epilepsy, unspecified, not intractable, without status epilepticus Status: Chronic (2) Cerebrovascular accident: Code(s): I63.9 - Cerebral infarction, unspecified Status: Chronic (3) Thrombocytopenia: Code(s): D69.6 - Thrombocytopenia, unspecified Status: Chronic Plan The seizures are controlled. Thrombocytopenia is most likely due to Depakote. He received her 2 days of high-dose Depakote but now is on 1000 mg of Depakote 3 times a day. EEG was performed which shows mild diffuse background slowing however no focal or paroxysmal epileptiform abnormality was seen. I would suggest to continue with the same anticonvulsant regimen for now and follow his platelet count once a week for next 3 4 weeks to see if he stabilizes since he has had high-dose Depakote for 2 3 days where the current dose is is mild increase compared to his baseline of Depakote 750 mg 3 times a day up to 1000 mg 3 times a day now. I believe attempts are still being made to transfer the patient to [facility] but the. You may consider retirement arrange for an outpatient appointment with the epilepsy Center since the patient has not had any seizures for last 5 days so long as he is cleared from pulmonary and general med the point of view. He can be referred for a 5 days of video EEG monitoring and a 5 their opinion from epileptologist to see if they have any suggestions regarding the med drug aging. Subjective Date/time seen: 02/16/24 12:33 Interval history: Patient alert however has difficulty with communication. He has not had any seizures since after admission to this unit. He has had some pulmonary problems and these are being addressed by elementary secretary. Review of Systems Review of Systems: ROS unobtainable: Yes unobtainable due to mental status Exam Narrative: Patient awake and it seems that he is trying to say something but is difficult to understand. He does not move his left upper limb and has a left above-knee amputation. He does not move his right leg but he does move his right arm. No additional findings were seen. Objective Data Vital Signs Vital Signs: Vital Signs - 24 hr 02/15/24 13:05 02/15/24 13:11 02/15/24 14:00 Temperature Pulse Rate 93 91 92 Respiratory Rate 18 18 Blood Pressure Pulse Oximetry Oxygen Delivery Oxygen Flow Rate Fraction of Inspired Oxygen 02/15/24 16:00 02/15/24 16:00 02/15/24 15:45 Temperature 99.6 F Pulse Rate 100 98 Respiratory Rate 18 Blood Pressure 123/72 Pulse Oximetry 97 96 Oxygen Delivery High Flow Therapy with Tr Oxygen Flow Rate 35 Fraction of Inspired Oxygen 21 02/15/24 18:00 02/15/24 20:20 02/15/24 20:20 Temperature Pulse Rate 107 H 100 100 Respiratory Rate 18 Blood Pressure Pulse Oximetry 98 Oxygen Delivery High Flow Therapy with Tr Oxygen Flow Rate 35 Fraction of Inspired Oxygen 21 02/15/24 20:44 02/15/24 20:20 02/15/24 20:31 Temperature 98.6 F Pulse Rate 96 98 98 Respiratory Rate 18 22 H Blood Pressure 128/74 Pulse Oximetry 97 Oxygen Delivery Oxygen Flow Rate Fraction of Inspired Oxygen 02/15/24 20:00 02/15/24 22:00 02/15/24 20:00 Temperature Pulse Rate 87 88 Respiratory Rate Blood Pressure Pulse Oximetry 97 Oxygen Delivery High Flow Therapy with Tr Oxygen Flow Rate 35 Fraction of Inspired Oxygen 02/15/24 23:32 02/15/24 23:46 02/16/24 00:00 Temperature 98.7 F Pulse Rate 95 94 Respiratory Rate 22 H Blood Pressure 130/77 Pulse Oximetry 94 94 Oxygen Delivery High Flow Therapy with Tr Oxygen Flow Rate 35 Fraction of Inspired Oxygen 02/16/24 02:00 02/16/24 02:22 02/16/24 02:34 Temperature Pulse Rate 97 97 100 Respiratory Rate 19 19 Blood Pressure Pulse Oximetry Oxygen Delivery Oxygen Flow Rate
--- NOTE | 2024-02-16 16:31 | PM.TDS ---
Transfer Discharge Sum: Prov Provider Date of admission: 02/15/24 13:10 Primary care physician: Burke Restrepo, MD Admitting clinician: Ankit Henderson MD Consults: 02/09/24 15:04 Consult to Physician Routine Comment: Consulting Provider: Cam Ramos Reason for consultation: seizures Has provider been notified: Yes 02/15/24 Consult to Physician Routine Comment: Spoke with Dr and notified him of consult Consulting Provider: Chai Baron boilers inspector/MD group to consult: Pulmonology Reason for consultation: mucous plugging Has provider been notified: Yes Attending physician on discharge: Gloria Serrato Discharging clinician: Angela James Anticipated date of transfer: 02/16/24 Receiving physician/facility: [facility], seizure team DS: Admitting Diagnosis Discharge Date 02/16/24 Admitting Diagnosis Intractable seizure disorder Seizures Unilateral complete AKA Tracheostomy in place Chronic respiratory failure with hypoxia Vegetative state Seizure disorder Tracheostomy dependence COPD Gastrostomy tube dependent DS: Discharge Diagnosis Discharge Diagnosis (1) Intractable seizure disorder: Code(s): G40.919 - Epilepsy, unspecified, intractable, without status epilepticus Status: Acute (2) Mucus plugging of bronchi: Code(s): T17.500A - Unspecified foreign body in bronchus causing asphyxiation, initial encounter Status: Resolved (3) Acute UTI: Code(s): N39.0 - Urinary tract infection, site not specified Status: Acute (4) Cerebrovascular accident: Code(s): I63.9 - Cerebral infarction, unspecified Status: Chronic (5) Tracheostomy dependence: Code(s): Z93.0 - Tracheostomy status Status: Chronic (6) 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 Transfer Discharge Sum: Med Medications Active and Home Medications: Home Medications metoprolol tartrate 25 mg tablet 25 mg PO BID 12/18/22 [History Confirmed 02/10/24] polyethylene glycol 3350 17 gram/dose oral powder 17 g feeding tube DAILY PRN Constipation 12/18/22 [History Confirmed 02/09/24] bisacodyl 10 mg rectal suppository 10 mg RECTAL DAILY PRN Constipation 02/11/23 [History Confirmed 02/08/24] sennosides 8.6 mg tablet (senna) 8.6 mg feeding tube BID 02/11/23 [History Confirmed 02/10/24] guaifenesin 100 mg/5 mL oral liquid 600 mg feeding tube BID 07/08/23 [History Confirmed 02/09/24] magnesium hydroxide 400 mg/5 mL oral suspension (Milk of Magnesia) 30 ml PO HS PRN Constipation 12/13/23 [History Confirmed 02/10/24] acetaminophen 650 mg tablet 650 mg PO Q4H PRN general discomfort 01/02/24 [History Confirmed 02/08/24] lanolin alcohols-mineral oil-w.petrolatum-ceresin topical cream (Eucerin topical cream) 1 applic topical DAILY PRN Itching 02/09/24 [History Confirmed 02/09/24] pantoprazole 40 mg granules delayed-release for susp in packet (Protonix) 40 mg PO DAILY 02/09/24 [History Confirmed 02/10/24] artificial tears solution eye drops 1 drp ophthalmic (eye) PRN 02/10/24 [History Confirmed 02/10/24] aspirin 81 mg tablet 81 mg PO DAILY 02/10/24 [History Confirmed 02/10/24] atorvastatin 40 mg tablet 40 mg PO HS 02/10/24 [History Confirmed 02/10/24] calcium carbonate 500 mg/5 mL (as calcium carb 1,250 mg/5 mL) oral suspension 1,250 mg PO Q6H PRN Heartburn 02/10/24 [History Confirmed 02/10/24] clobazam 10 mg tablet 10 mg feeding tube DAILY 02/10/24 [History Confirmed 02/10/24] famotidine 20 mg tablet 20 mg feeding tube BID 02/10/24 [History Confirmed 02/10/24] ferrous sulfate 220 mg (44 mg iron)/5 mL oral elixir 7.5 mg feeding tube DAILY 02/10/24 [History Confirmed 02/10/24] folic acid 1 mg tablet 1 mg feeding tube DAILY 02/10/24 [History Confirmed 02/10/24] ibuprofen 100 mg/5 mL oral suspension 600 mg PO QID PRN pain 02/10/24 [History Confirmed 02/10/24] ipratropium 0.5 mg-albuterol 3 mg (2.5 mg base)/3 mL nebulization soln 3 ml inhalation
[2024-02-16] MEDS: ATORVASTATIN 40 MG TABLET FEED TUBE (19:41)
[2024-02-16] MEDS: SENNOSIDES 8.6 MG TABLET FEED TUBE (19:43)
[2024-02-16] MEDS: ACETAMINOPHEN 325 MG TABLET 650 MG PO (19:43)
--- NOTE | 2024-02-16 23:52 | PC.NURSE ---
2345: Care transferred to [facility] with help of [employer] DRIVER, Tayo San. VSS
== END 2024-02-16 23:40 | disposition short-term general hospital (02) | DRG 53 ==
LOC: ANHED 02-09 14:48 → ANHIMU 02-09 22:26
PROVIDERS: Internal Medicine; Internal Medicine Pulmonary Disease; Physician Assistant; Admitting Provider General Practice; Emergency Provider Emergency Medicine; PCP Internal Medicine; Visit Provider Nurse Practitioner Acute Care
DX: G40.909 Epilepsy, unspecified, not intractable, without status epilepticus (principal); N39.0 Urinary tract infection, site not specified; N40.0 Benign prostatic hyperplasia without lower urinary tract symptoms; I69.354 Hemiplegia and hemiparesis following cerebral infarction affecting left non-dominant side; I69.320 Aphasia following cerebral infarction; I69.391 Dysphagia following cerebral infarction; R13.10 Dysphagia, unspecified; D69.59 Other secondary thrombocytopenia; J44.9 Chronic obstructive pulmonary disease, unspecified; Z86.718 Personal history of other venous thrombosis and embolism; D50.9 Iron deficiency anemia, unspecified; Z93.1 Gastrostomy status; Z93.0 Tracheostomy status; Z89.612 Acquired absence of left leg above knee; K31.84 Gastroparesis; F01.52 Vascular dementia, unspecified severity, with psychotic disturbance; Z87.891 Personal history of nicotine dependence; B96.5 Pseudomonas (aeruginosa) (mallei) (pseudomallei) as the cause of diseases classified elsewhere; T17.500A Unspecified foreign body in bronchus causing asphyxiation, initial encounter; R40.3 Persistent vegetative state; Z79.4 Long term (current) use of insulin; I10 Essential (primary) hypertension; J96.11 Chronic respiratory failure with hypoxia; J98.19 Other pulmonary collapse; T42.6X5A Adverse effect of other antiepileptic and sedative-hypnotic drugs, initial encounter
CPT/HCPCS: 36415; 70450; 71045; 80048; 80053; 80164; 81001; 83735; 84145; 85025; 85027; 85055; 87040; 87070; 87077; 87086; 87088; 87186; 87205; 87641; 93005; 94640; 94667; 94669; 95816; 96365; 96366; 96367; 96372; 96374; 96375; 96376; 99285; A4629; A9270; G0378; G0379; J0713; J1650; J1953; J2060; J2405; J2543; J7030; J7050

== ENCOUNTER 2024-03-10 05:55 | Emergency (ER) | payer OTHER, SELFPAY ==
[2024-03-10] VITALS (18 sets, daily range): BP systolic 143–176; BP diastolic 91–103; PULSE 82–86; RESP 14–20; TEMP 36.6; O2SAT 96–99
--- NOTE | ~2024-03-10 | XR_ITS ---
EXAMINATION: XR abdomen gastric tube insert DATE: 03/10/2024 07:44 INDICATION: Gastrostomy tube placement. TECHNIQUE: A supine view of the abdomen was obtained. COMPARISON: Abdomen radiographs 12/20/2023 FINDINGS: There are no dilated loops of bowel. The gastrostomy tube is in expected position in the st omach. There is contrast in the tube and in the stomach and duodenum. IMPRESSION: 1. Gastrostomy tube in expected position. Reviewed, dictated and finalized at location A.
--- NOTE | 2024-03-10 07:03 | ED.GENADULT ---
HPI - General Adult General Chief complaint: Unspecified Stated complaint: G-TUBE DISPLACEMENT Time Seen by Provider: 03/10/24 06:54 History of Present Illness HPI narrative: 64 Year old male present to the emergency department for evaluation for a dislodged G-tube. Patient has an 18 [place] G-tube that was apparently dislodged during transport. Patient denies any pain or complaints at this time. Related Data Home Medications Medication Instructions Recorded Confirmed metoprolol tartrate 25 mg tablet 25 mg PO BID 12/18/22 02/10/24 polyethylene glycol 3350 17 17 g feeding tube DAILY PRN 12/18/22 02/09/24 gram/dose oral powder Constipation bisacodyl 10 mg rectal suppository 10 mg RECTAL DAILY PRN Constipation 02/11/23 02/08/24 sennosides 8.6 mg tablet (senna) 8.6 mg feeding tube BID 02/11/23 02/10/24 guaifenesin 100 mg/5 mL oral liquid 600 mg feeding tube BID 07/08/23 02/09/24 magnesium hydroxide 400 mg/5 mL 30 ml PO HS PRN Constipation 12/13/23 02/10/24 oral suspension (Milk of Magnesia) acetaminophen 650 mg tablet 650 mg PO Q4H PRN general 01/02/24 02/08/24 discomfort lanolin alcohols-mineral 1 applic topical DAILY PRN Itching 02/09/24 02/09/24 oil-w.petrolatum-ceresin topical cream (Eucerin topical cream) pantoprazole 40 mg granules 40 mg PO DAILY 02/09/24 02/10/24 delayed-release for susp in packet (Protonix) artificial tears solution eye drops 1 drp ophthalmic (eye) PRN 02/10/24 02/10/24 aspirin 81 mg tablet 81 mg PO DAILY 02/10/24 02/10/24 atorvastatin 40 mg tablet 40 mg PO HS 02/10/24 02/10/24 calcium carbonate 500 mg/5 mL (as 1,250 mg PO Q6H PRN Heartburn 02/10/24 02/10/24 calcium carb 1,250 mg/5 mL) oral suspension clobazam 10 mg tablet 10 mg feeding tube DAILY 02/10/24 02/10/24 famotidine 20 mg tablet 20 mg feeding tube BID 02/10/24 02/10/24 ferrous sulfate 220 mg (44 mg 7.5 mg feeding tube DAILY 02/10/24 02/10/24 iron)/5 mL oral elixir folic acid 1 mg tablet 1 mg feeding tube DAILY 02/10/24 02/10/24 ibuprofen 100 mg/5 mL oral 600 mg PO QID PRN pain 02/10/24 02/10/24 suspension ipratropium 0.5 mg-albuterol 3 mg 3 ml inhalation Q6H PRN Shortness 02/10/24 02/10/24 (2.5 mg base)/3 mL nebulization Of Breath soln ketoconazole 2 % shampoo 1 ea topical WEEKLY 02/10/24 02/10/24 lacosamide 10 mg/mL oral solution 200 mg feeding tube BID 02/10/24 02/10/24 levetiracetam 100 mg/mL oral 2,000 mg feeding tube BID 02/10/24 02/10/24 solution lorazepam 2 mg/mL injection syringe 1 mg IV Q4H PRN Seizure Activity 02/10/24 02/10/24 magnesium citrate (Citroma oral 296 ml PO DAILY PRN Constipation 02/10/24 02/10/24 solution) metoclopramide HCl 10 mg tablet 10 mg feeding tube TIDWMEAL 02/10/24 02/10/24 sodium chloride 7 % for 1 inh inhalation TID 02/10/24 02/10/24 nebulization thiamine HCl (vitamin B1) 100 mg 100 mg feeding tube DAILY 02/10/24 02/10/24 tablet valproic acid (as sodium salt) 250 1,250 mg feeding tube QID 02/10/24 02/10/24 mg/5 mL oral solution Allergies Allergy/AdvReac Type Severity Reaction Status Date / Time clonazepam Allergy Unknown Unknown Verified 03/10/24 08:54 Review of Systems Review of Systems: All systems reviewed & are unremarkable except as noted in HPI and below PMFSH Past Medical History Medical History (Updated 03/10/24 @ 07:51 by David Cash MD) Benign prostatic hyperplasia Cerebrovascular accident Residual expressive aphasia, dysphagia, and left-sided weakness. Chronic obstructive pulmonary disease Deep venous thrombosis of upper extremity Esophageal diverticulum Gastroparesis Iron deficiency anemia Seizure disorder Vascular dementia with psychotic disturbance Surgical History Surgical History History of gastrostomy tube placement History of left above knee amputation History of tracheostomy Family History Family History Other Unknown family medical history Social History Social History Social History: Surrogate medical decision maker: Adriane Hilliard, sibling. Code status: Full code. 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 HEAD: normocephalic, atraumatic. EYES: PERRLA/EOMI, conjunctivae clear. NOSE: Normal no drainage EARS:TMS clear with good light reflex. THROAT: Pharynx clear, no exudate. NECK: Supple. No adenopathy, no masses. RESPIRATORY: Airway patent, respirations nonlabored. Clear to auscultation bilaterally, no rales, rhonchi, wheezing. CARDIOVASCULAR: Regular rate and rhythm without murmurs rubs or gallops. ABDOMINAL: Well-appearing G-tube site MUSCULOSKELETAL: Moves all extremities. Strength/ROM intact, No edema, No calf tenderness. NEURO: Alert. SKIN: Warm, dry. Normal Color Course Vital Signs Vital signs: Vital Signs Temperature 98 F 03/10/24 05:56 Pulse Rate 86 03/10/24 05:56 Respiratory Rate 14 03/10/24 05:56 Blood Pressure 143/95 H 03/10/24 05:56 Pulse Oximetry 97 03/10/24 05:56 Oxygen Delivery Room Air 03/10/24 05:56 Temperature 98 F 03/10/24 05:56 Pulse Rate 82 03/10/24 08:01 Respiratory Rate 20 03/10/24 08:01 Blood Pressure 154/94 H 03/10/24 08:31 Pulse Oximetry 99 03/10/24 08:47 Oxygen Delivery Trach Collar 03/10/24 08:09 Oxygen Flow Rate 9 03/10/24 08:09 Fraction of Inspired Oxygen 35 03/10/24 08:09 Procedures Feeding Tube Replacement Feeding Tube #1: Feeding Tube Placement Date: 03/10/24 Feeding Tube Placement Time: 07:18 Type of Tube: nasogastric Insertion Site Prior to Procedure: clean Tube Used for Reinsertion: Bard [place] Tube Size (F): 16 Balloon size (mL): 5 Verification of Placement: KUB Tube Secured by: attachment device Patient Tolerated Procedure: well and no complications Medical Decision Making MDM Narrative Medical decision making narrative: 64-year-old male presents to the emergency department for evaluation for dislodged G-tube. G-tube is replaced and confirmed by x-ray. Patient was in no distress and well appearing. Vital Signs Vital Signs: Vital Signs Temperature 98 F 03/10/24 05:56 Pulse Rate 86 03/10/24 05:56 Respiratory Rate 14 03/10/24 05:56 Blood Pressure 143/95 H 03/10/24 05:56 Pulse Oximetry 97 03/10/24 05:56 Oxygen Delivery Room Air 03/10/24 05:56 Temperature 98 F 03/10/24 05:56 Pulse Rate 82 03/10/24 08:01 Respiratory Rate 20 03/10/24 08:01 Blood Pressure 154/94 H 03/10/24 08:31 Pulse Oximetry 99 03/10/24 08:47 Oxygen Delivery Trach Collar 03/10/24 08:09 Oxygen Flow Rate 9 03/10/24 08:09 Fraction of Inspired Oxygen 35 03/10/24 08:09 Discharge Plan Discharge Clinical Impression: Gastrostomy tube dysfunction Patient Disposition: Home, Self-Care Condition: Stable Instructions: Antibiotic Form Additional Instructions: Patient's G-tube was replaced and is in proper position. Prescriptions: No Action bisacodyl 10 mg Suppository 10 mg RECTAL DAILY PRN (Reason: Constipation) Rx Instructions: if no results for MOM sennosides [senna] 8.6 mg Tablet 8.6 mg feeding tube BID guaifenesin 100 mg/5 mL liquid 600 mg feeding tube BID magnesium hydroxide [Milk of Magnesia] 400 mg/5 mL Suspension 30 ml PO HS PRN (Reason: Constipation) Rx Instructions: If no BM in 3 days polyethylene glycol 3350 17 gram/dose powder 17 g feeding tube DAILY PRN (Reason: Constipation) metoprolol tartrate 25 mg tablet 25 mg PO BID acetaminophen 650 mg Tablet 650 mg PO Q4H PRN (Reason: general discomfort) Rx Instructions: administer via G-Tube Eucerin Cream 1 applic TOPICAL DAILY PRN (Reason: Itching) Rx Instructions: apply to foot, legs and face pantoprazole [Protonix] [address] for susp in packet 40 mg PO DAILY atorvastatin 40 mg tablet 40 mg PO HS ipratropium-albuterol 0.5 mg-3 mg(2.5 mg base)/3 mL solution for nebulization 3 ml INHALATION Q6H PRN (Reason: Shortness Of Breath) ketoconazole 2 % shampoo 1 ea TOPICAL WEEKLY Rx Instructions: on Tuesday and artificial tears solution Drops 1 drp OPHTHALMIC (EYE) PRN Rx Instructions: instill 1 drop per eye as needed for dry eye thiamine HCl (vitamin B1) 100 mg Tablet 100 mg feeding tube DAILY famotidine 20 mg tablet 20 mg feeding tube BID valproic acid (as sodium salt) 250 mg/5 mL solution 1,250 mg feeding tube QID magnesium citrate [Citroma] Solution 296 ml PO DAILY PRN (Reason: Constipation) Rx Instructions: if no results from enema folic acid 1 mg tablet 1 mg feeding tube DAILY aspirin 81 mg Tablet 81 mg PO DAILY Rx Instructions: administer via G-Tube ibuprofen 100 mg/5 mL Suspension 600 mg PO QID PRN (Reason: pain) metoclopramide HCl 10 mg tablet 10 mg feeding tube TIDWMEAL Rx Instructions: before meals and at bedtime lorazepam 2 mg/mL Syringe 1 mg IV Q4H PRN (Reason: Seizure Activity) levetiracetam 100 mg/mL solution 2,000 mg feeding tube BID calcium carbonate 500 mg/5 mL (1,250 mg/5 mL) Suspension 1,250 mg PO Q6H PRN (Reason: Heartburn) sodium chloride 7 % solution for nebulization 1 inh INHALATION TID lacosamide 10 mg/mL solution 200 mg feeding tube BID clobazam 10 mg tablet 10 mg feeding tube DAILY ferrous sulfate 220 mg (44 mg iron)/5 mL elixir 7.5 mg feeding tube DAILY Follow-up/Referrals: Lauro,MD Burke [Primary Care Provider] -
--- NOTE | 2024-03-10 08:11 | PC.NURSE ---
g-tube replaced by Dr Cash with 16f Facility called for report
== END 2024-03-10 09:05 | disposition home or self-care (01) ==
PROVIDERS: Emergency Provider Emergency Medicine; PCP Internal Medicine
DX: Z43.1 Encounter for attention to gastrostomy (principal); F01.52 Vascular dementia, unspecified severity, with psychotic disturbance; G40.909 Epilepsy, unspecified, not intractable, without status epilepticus; J44.9 Chronic obstructive pulmonary disease, unspecified; K31.84 Gastroparesis; D50.9 Iron deficiency anemia, unspecified; N40.0 Benign prostatic hyperplasia without lower urinary tract symptoms; Z86.718 Personal history of other venous thrombosis and embolism; Z87.891 Personal history of nicotine dependence; Z89.612 Acquired absence of left leg above knee; Z79.82 Long term (current) use of aspirin; Z79.899 Other long term (current) drug therapy
CPT/HCPCS: 43762; 99283

== ENCOUNTER 2024-06-01 03:07 | Emergency (ER) | payer OTHER, SELFPAY ==
--- NOTE | ~2024-06-01 | XR_ITS ---
Portable chest x-ray Comparison: 02/16/2024 Clinical History: Chest pain Findings: Tracheostomy cannula present. Lungs are clear, without focal consolidation or pleural effu asha. Cardiomediastinal silhouette is stable. Bones and soft tissues are unremarkable. Impression: Clear lungs. Reviewed, dictated and finalized at location . [facility] Impression: Clear lungs.
[2024-06-01 03:17] VITALS: BP 153/76; PULSE 89; RESP 19; TEMP 36.5; O2SAT 99
[2024-06-01] MEDS: HYDROmorphone HCL INJ (*CRX) 1 MG/ML SYR IM (03:41)
--- NOTE | 2024-06-01 04:00 | ED.GENADULT ---
HPI - General Adult General Chief complaint: Unspecified Stated complaint: Trach Dislodged Time Seen by Provider: 06/01/24 03:12 History of Present Illness HPI narrative: This is a 64-year-old male with chronic trach presenting for bloody secretions. His trach dislodged the group home and was replaced. afterwards they noticed bloody sputum when they were suctioning the patient. Patient has no other complaints. Related Data Home Medications ?Medication ?Instructions ?Recorded ?Confirmed ?Last Taken ?Type metoprolol tartrate 25 mg tablet 25 mg feeding tube BID 12/18/22 03/30/24 Unknown History polyethylene glycol 3350 17 17 g feeding tube DAILY PRN 12/18/22 03/30/24 Unknown History gram/dose oral powder Constipation bisacodyl 10 mg rectal suppository 10 mg RECTAL DAILY PRN Constipation 02/11/23 03/30/24 Unknown History sennosides 8.6 mg tablet (senna) 8.6 mg feeding tube BID 02/11/23 03/30/24 Unknown History guaifenesin 100 mg/5 mL oral liquid 300 mg feeding tube BID PRN Cough 07/08/23 03/30/24 Unknown History magnesium hydroxide 400 mg/5 mL 30 ml PO HS PRN Constipation 12/13/23 03/30/24 Unknown History oral suspension (Milk of Magnesia) artificial tears solution eye drops 1 drp ophthalmic (eye) PRN PRN Dry 02/10/24 03/30/24 Unknown History Eye(S) atorvastatin 40 mg tablet 40 mg PO HS 02/10/24 03/30/24 Unknown History calcium carbonate 500 mg/5 mL (as 1,250 mg PO Q6H PRN Heartburn 02/10/24 03/30/24 Unknown History calcium carb 1,250 mg/5 mL) oral suspension clobazam 10 mg tablet 10 mg feeding tube DAILY 02/10/24 03/30/24 Unknown History famotidine 20 mg tablet 20 mg feeding tube BID 02/10/24 03/30/24 Unknown History folic acid 1 mg tablet 1 mg feeding tube DAILY 02/10/24 03/30/24 Unknown History ipratropium 0.5 mg-albuterol 3 mg 3 ml inhalation Q6H PRN Shortness 02/10/24 03/30/24 Unknown History (2.5 mg base)/3 mL nebulization Of Breath soln lacosamide 10 mg/mL oral solution 200 mg feeding tube BID 02/10/24 03/30/24 Unknown History levetiracetam 100 mg/mL oral 1,500 mg feeding tube BID 02/10/24 03/30/24 Unknown History solution magnesium citrate (Citroma oral 296 ml PO DAILY PRN Constipation 02/10/24 03/30/24 Unknown History solution) thiamine HCl (vitamin B1) 100 mg 100 mg feeding tube DAILY 02/10/24 03/30/24 Unknown History tablet valproic acid (as sodium salt) 250 1,250 mg feeding tube QID 02/10/24 03/30/24 Unknown History mg/5 mL oral solution acetaminophen 650 mg/20.3 mL oral 650 mg feeding tube Q4H PRN Pain 03/30/24 03/30/24 Unknown History suspension (Scale Score 1-3) apixaban 5 mg tablet (Eliquis) 5 mg feeding tube BID 03/30/24 03/30/24 Unknown History aspirin 81 mg chewable tablet 81 mg feeding tube DAILY 03/30/24 03/30/24 Unknown History Allergies Allergy/AdvReac Type Severity Reaction Status Date / Time clonazepam Allergy Unknown Unknown Verified 03/10/24 08:54 [facility] Past Medical History Medical History Deep venous thrombosis of upper extremity Benign prostatic hyperplasia Cerebrovascular accident Residual expressive aphasia, dysphagia, and left-sided weakness. Chronic obstructive pulmonary disease Esophageal diverticulum Gastroparesis Iron deficiency anemia Vascular dementia with psychotic disturbance Seizure disorder Surgical History Surgical History History of gastrostomy tube placement History of tracheostomy History of left above knee amputation Family History Family History Other Unknown family medical history Social History Social History Social History: Surrogate medical decision maker: Adriane Hilliard, sibling. Code status: Full code. 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 Head: atraumatic. EYES: EOMI, NOSE: Atraumatic NECK: Trach in place, no external bleeding, in line suction is 20cm. RESPIRATORY: No increased rate of breathing CARDIOVASCULAR: RRR, ABDOMINAL: Non-distended MUSCULOSKELETAl: No obvious deformities NEURO: Alert. Moving 4/4 extremities SKIN:: Warm, dry. Normal color PSYCHIATRIC: Normal affect Course Vital Signs Vital signs: Vital Signs Temperature 97.7 F 06/01/24 03:17 Pulse Rate 89 06/01/24 03:17 Respiratory Rate 19 06/01/24 03:17 Blood Pressure 153/76 H 06/01/24 03:17 Pulse Oximetry 99 06/01/24 03:17 Oxygen Delivery Room Air 06/01/24 03:17 Temperature 97.7 F 06/01/24 03:17 Pulse Rate 89 06/01/24 03:17 Respiratory Rate 19 06/01/24 03:17 Blood Pressure 153/76 H 06/01/24 03:17 Pulse Oximetry 99 06/01/24 03:17 Oxygen Delivery Room Air 06/01/24 03:17 Medical Decision Making MDM Narrative Medical decision making narrative: -Course: 64-year-old male with chronic trach presenting with bloody sputum. Respiratory therapy trouble shot his trach and lying suction. The inline suction tubing they were using was far too long and was likely causing mild trauma when they were suction him resulting in bloody sputum. Once we have switched out his suction tube to an appropriate lengthhe was suctioned and is resting comfortably with no complaints. He is saturating well on room air. Chest x-ray was clear. Patient be discharged back to group home. Vital Signs Vital Signs: Vital Signs Temperature 97.7 F 06/01/24 03:17 Pulse Rate 89 06/01/24 03:17 Respiratory Rate 19 06/01/24 03:17 Blood Pressure 153/76 H 06/01/24 03:17 Pulse Oximetry 99 06/01/24 03:17 Oxygen Delivery Room Air 06/01/24 03:17 Temperature 97.7 F 06/01/24 03:17 Pulse Rate 89 06/01/24 03:17 Respiratory Rate 19 06/01/24 03:17 Blood Pressure 153/76 H 06/01/24 03:17 Pulse Oximetry 99 06/01/24 03:17 Oxygen Delivery Room Air 06/01/24 03:17 Discharge Plan Discharge Clinical Impression: Acute tracheostomy management Patient Disposition: Home, Self-Care Condition: Stable Instructions: Antibiotic Form, Tracheostomy Care (ED) Additional Instructions: Mr. Tabor was seen for bloody secretions. His in line suction tubing was too long for his trach and was likely causing damage to his lungs when inserted, Jensen. Please use an appropriate size suction catheter. If he develops any new or worsening symptoms please return to the ED for re-evaluation. Patient Language: Japanese Prescriptions: No Action bisacodyl 10 mg Suppository 10 mg RECTAL DAILY PRN (Reason: Constipation) Rx Instructions: if no results for MOM sennosides [senna] 8.6 mg Tablet 8.6 mg feeding tube BID guaifenesin 100 mg/5 mL liquid 300 mg feeding tube BID PRN (Reason: Cough) magnesium hydroxide [Milk of Magnesia] 400 mg/5 mL Suspension 30 ml PO HS PRN (Reason: Constipation) Rx Instructions: If no BM in 3 days polyethylene glycol 3350 17 gram/dose powder 17 g feeding tube DAILY PRN (Reason: Constipation) metoprolol tartrate 25 mg tablet 25 mg feeding tube BID atorvastatin 40 mg tablet 40 mg PO HS ipratropium-albuterol 0.5 mg-3 mg(2.5 mg base)/3 mL solution for nebulization 3 ml INHALATION Q6H PRN (Reason: Shortness Of Breath) artificial tears solution Drops 1 drp OPHTHALMIC (EYE) PRN PRN (Reason: Dry Eye(S)) Rx Instructions: instill 1 drop per eye as needed for dry eye thiamine HCl (vitamin B1) 100 mg Tablet 100 mg feeding tube DAILY famotidine 20 mg tablet 20 mg feeding tube BID valproic acid (as sodium salt) 250 mg/5 mL solution 1,250 mg feeding tube QID magnesium citrate [Citroma] Solution 296 ml PO DAILY PRN (Reason: Constipation) Rx Instructions: if no results from enema folic acid 1 mg tablet 1 mg feeding tube DAILY levetiracetam 100 mg/mL solution 1,500 mg feeding tube BID calcium carbonate 500 mg/5 mL (1,250 mg/5 mL) Suspension 1,250 mg PO Q6H PRN (Reason: Heartburn) lacosamide 10 mg/mL solution 200 mg feeding tube BID clobazam 10 mg tablet 10 mg feeding tube DAILY Eliquis 5 mg Tablet 5 mg feeding tube BID aspirin 81 mg Tablet,Chewable 81 mg feeding tube DAILY acetaminophen 650 mg/20.3 mL Suspension 650 mg feeding tube Q4H PRN (Reason: Pain (Scale Score 1-3)) meropenem 1 gram Recon Soln 1 g IV Q8H Qty: 8 0RF Follow-up/Referrals: Lauro,MD Burke [Primary Care Provider] -
[2024-06-01 04:13] VITALS: BP 138/64; PULSE 75; RESP 18; O2SAT 100
--- OUTSIDE RECORDS SUMMARY | 2024-06-08 05:27 | XMS_ITS | Data Portability ---
Demographics Address [address] [place] [address] Home Phone Mobile Phone Email Address Preferred Language en Marital Status Never Religion Affiliation Unknown Race Black or Irma rican Ethnic Group Not or Lati no Author Organization [facility] Address [address] [place] [address] Assessment No assessment recorded. Plan of Treatment Reminders Order Date Submit Date Provider Last Modified By Organization Details Last Modified Time Details Appointments None recorded. Lab None recorded. Referral None recorded. Procedures None recorded. Surgeries None recorded. Imaging None recorded. Medication Orders Ambien 10 mg tablet 2014 015 [place] 2 [employer], [address] [place] [address], [id number], 5 10:37:28 Prozac 20 mg capsule 2014 015 [employer], [address] [place] [address], [id number], 5 16:10:15 tramadol 50 mg tablet 2014 015 [facility] [employer] [facility], [address] [place] [address], [id number], 5 12:13:56 Flomax 0.4 mg capsule 2014 015 [employer], [address] [place] [address], [id number], 5 16:10:16 ibuprofen 800 mg tablet 2015 016 [facility] [employer], [address] [place] [address], [id number], 18:35:08 Patient TargetsNo targets recorded. Patient Instructions Encounter Date Encounter Id Patient Instructions Last Modified By Organization Details Last Modified Time 06/10/2014 [id number] stroke: care instructions Not available 06/21/2014 17:33:19 insomnia: care instructions Not available 06/21/2014 17:33:19 epilepsy: care instructions Not available 06/21/2014 17:33:19 09/18/2014 [id number] epilepsy: care instructions dsalmond Not available 09/18/2014 17:05:10 back care and preventing injuries: care instructions dsalmond Not available 09/18/2014 17:05:10 04/16/2015 [id number] epilepsy: care instructions campadu Not available 04/16/2015 16:05:30 06/12/2015 [id number] stroke: care instructions dsalmond Not available 06/13/2015 12:21:31 epilepsy: care instructions dsalmond Not available 06/13/2015 12:21:31 learning about high blood pressure dsalmond Not available 06/13/2015 12:21:31 Reason for Referral None Reported. Results Created Date Observation Date Name Description Value Unit Range Abnormal Flag Note LastModifiedBy Organization Detail LastModifiedTime 06/12/19 16 06/12/2015 CBC w/ auto diff WBC 5.9 K/uL 3.4-10 .8 Not Available [facility] (Lab) [address] [place], [address], 06/12/2015 19:52:35 06/12/19 16 06/12/2015 CBC w/ auto diff red blood count 4.6 M/uL 4.5-6. 3 Not Available [facility] (Lab) [address], [place], [address], 06/12/2015 19:52:35 06/12/19 16 06/12/2015 CBC w/ auto diff hemoglobin 14.7 g/dL 13.5-1 7.5 Not Available [facility] (Lab) [address] [place], [address], 06/12/2015 19:52:35 06/12/19 16 06/12/2015 CBC w/ auto diff hematocrit 44.5 % 40.0-5 2.0 Not Available [facility] (Lab) [address] [place], [address], 06/12/2015 19:52:35 06/12/19 16 06/12/2015 CBC w/ auto diff MCV 97 fL 80-95 high Not Available [facility] (Lab) [address] [place], [address], 06/12/2015 19:52:35 06/12/19 16 06/12/2015 CBC w/ auto diff MCH 32 pg 27-32 Not Available [facility] (Lab) [address] [place], [address], 06/12/2015 19:52:35 06/12/19 16 06/12/2015 CBC w/ auto diff MCHC 33 g/dL 32-36 Not Available [facility] (Lab) [address] [place], [address], 06/12/2015 19:52:35 06/12/19 16 06/12/2015 CBC w/ auto diff platelets 219 K/uL 155-37 9 Not Available [facility] (Lab) [address] [place], [address], 06/12/2015 19:52:35 06/12/19 16 06/12/2015 CBC w/ auto diff RDW 11.6 % 11.5-1 4.5 Not Available [facility] (Lab) [address] [place], [address], 06/12/2015 19:52:35 06/12/19 16 06/12/2015 CBC w/ auto diff MPV 11.1 fL 8.9-12 .7 Not Available [facility] (Lab) [address] [place], [address], 06/12/2015 19:52:35 06/12/19 16 06/12/2015 CBC w/ auto diff neutrophils absolute 2.5 K/uL 1.4-7. 0 Not Available [facility] (Lab) [address] [facility], [place], [address], 06/12/2015 19:52:35 06/12/19 16 06/12/2015 CBC w/ auto diff lymphs (absolute) 2.6 K/uL 0.7-3. 1 Not Available [facility] (Lab) [address] [facility], [place], [address], 06/12/2015 19:52:35 06/12/19 16 06/12/2015 CBC w/ auto diff monocytes (absolute) 0.5 K/uL 0.1-0. 9 Not Available [facility] (Lab) [address] [place], [address], 06/12/2015 19:52:35 06/12/19 16 06/12/2015 CBC w/ auto diff eos (absolute) 0.2 K/uL 0.0-0. 4 Not Available [facility] (Lab) [address] [place], [address], 06/12/2015 19:52:35 06/12/19 16 06/12/2015 CBC w/ auto diff baso (absolute) 0.0 K/uL 0.1-0. 3 low Not Available [facility] (Lab) [address] [facility], [place], [address], 06/12/2015 19:52:35 06/12/19 16 06/12/2015 CBC w/ auto diff neut % 43.1 % 40.0-7 4.0 Not Available [facility] (Lab) [address] [place], [address], 06/12/2015 19:52:35 06/12/19 16 06/12/2015 CBC w/ auto diff lymphs % 44.6 % 14.0-4 6.0 Not Available [facility] (Lab) [address] [place], [address], 06/12/2015 19:52:35 06/12/19 16 06/12/2015 CBC w/ auto diff mono % 8.7 % 4.0-12 .0 Not Available [facility] (Lab) [address], [place], [address], 06/12/2015 19:52:35 06/12/19 16 06/12/2015 CBC w/ auto diff eos % 3 % <=5 Not Available [facility] (Lab) [address], [place], [address], 06/12/2015 19:52:35 06/12/19 16 06/12/2015 CBC w/ auto diff baso % 0.2 % 0.1-1. 1 Not Available [facility] (Lab) [address] [facility], [place], [address], 06/12/2015 19:52:35 06/12/19 16 06/13/2015 HbA1c (hemo globi n A1c), blood hemoglobin A1C 5.4 % 4.8-5. 6 . Pre-d iabet es: 5.7 - 6.4 Diabe ivet: >6.4 Glyce [place] contr ol for adult s with diabe ivet: <7.0 Not Available [facility] (Lab) [address], [place], [address], 06/13/2015 04:12:44 06/12/19 16 06/13/2015 T4, total , serum thyroxine T4 4.7 ug/dL 4.5-12 .0 Not Available [facility] (Lab) [address] [place], [address], 06/13/2015 05:19:09 06/12/19 16 06/13/2015 CMP, serum or plasm a glucose, serum 98 mg/dL 65-99 Not Available [facility] (Lab) [address], [place], [address], 06/13/2015 05:19:11 06/12/19 16 06/13/2015 CMP, serum or plasm a BUN 7 mg/dL 6-24 Not Available [facility] (Lab) [address], [place], [address], 06/13/2015 05:19:11 06/12/19 16 06/13/2015 CMP, serum or plasm a creatinine, serum 0.78 mg/dL 0.76-[address] [facility] (Lab) [address], [place], [address], 06/13/2015 05:19:11 06/12/19 16 06/13/2015 CMP, serum or plasm a eGFR if nonafricn AM 102 mL/mi n/1.7 3 >59 Not Available [facility] (Lab) [address], [place], [address], 06/13/2015 05:19:11 06/12/19 16 06/13/2015 CMP, serum or plasm a eGFR if 118 mL/mi n/1.7 3 >59 Not Available [facility] (Lab) [address], [place], [address], 06/13/2015 05:19:11 06/12/19 16 06/13/2015 CMP, serum or plasm a BUN/creatini ne ratio 9 9-20 Not Available [facility] (Lab) [address], [place], [address], 06/13/2015 05:19:11 06/12/19 16 06/13/2015 CMP, serum or plasm a sodium, serum 141 mmol/ L 134-14 4 Not Available [facility] (Lab) [address] [place], [address], 06/13/2015 05:19:11 06/12/19 16 06/13/2015 CMP, serum or plasm a potassium, serum 4.5 mmol/ L 3.5-5. 2 Not Available [facility] (Lab) [address], [place], [address], 06/13/2015 05:19:11 06/12/19 16 06/13/2015 CMP, serum or plasm a chloride, serum 101 mmol/ L 97-108 Not Available [facility] (Lab) [address] [place], [address], 06/13/2015 05:19:11 06/12/19 16 06/13/2015 CMP, serum or plasm a carbon dioxide, total 23 mmol/ L 18-[address] [facility] (Lab) [address], [place], [address], 06/13/2015 05:19:11 06/12/19 16 06/13/2015 CMP, serum or plasm a calcium, serum 9.5 mg/dL 8.7-[address] [facility] (Lab) [address], [place], [address], 06/13/2015 05:19:11 06/12/1906/13/2015 CMP, serum or plasm a protein total serum 7.2 g/dL 6.0-8. [address] [facility] (Lab) [address], [place], [address], 06/13/2015 05:19:11 06/12/1906/13/2015 CMP, serum or plasm a albumin, serum 4.5 g/dL 3.5-5. [address] [facility] (Lab) [address], [place], [address], 06/13/2015 05:19:11 06/12/19 16 06/13/2015 CMP, serum or plasm a globulin total 2.7 g/dL 1.5-4. [address] [facility] (Lab) [address], [place], [address], 06/13/2015 05:19:11 06/12/1906/13/2015 CMP, serum or plasm a A/G ratio 1.7 1.1-2. [address] [facility] (Lab) [address], [place], [address], 06/13/2015 05:19:11 06/12/1906/13/2015 CMP, serum or plasm a bilirubin total <0.2 mg/dL 0.0-1. [address] [facility] (Lab) [address] [place], [address], 06/13/2015 05:19:11 06/12/19 16 06/13/2015 CMP, serum or plasm a alkaline phosphatase ser 105 IU/L 39-117 Not Available [facility] (Lab) [address], [place], [address], 06/13/2015 05:19:11 06/12/19 16 06/13/2015 CMP, serum or plasm a AST (SGOT) 20 IU/L 0-40 Not Available [facility] (Lab) [address] [place], [address], 06/13/2015 05:19:11 06/12/19 16 06/13/2015 CMP, serum or plasm a ALT (SGPT) 18 IU/L 0-44 Not Available [facility] (Lab) [address] [place], [address], 06/13/2015 05:19:11 06/12/19 16 06/13/2015 TSH, serum or plasm a TSH 2.010 uIU/m L 0.450- 4.500 Not Available [facility] (Lab) [address] [place], [address], 06/13/2015 05:19:12 06/12/19 16 06/13/2015 PSA, serum or plasm a prostate specific Ag, serum 2.1 NG/mL 0.0-4. 0 Jamie ECLIA metho dolog y. . Accor ding to the Ameri can Urolo gical Assoc iatio n, Serum PSA shoul d decre ase and remai n at undet ectab le level s after radic al prost atect suzi. The AUA defin es bioch emica l recur rence as an initi al PSA value 0.2 ng/mL or great er follo wed by a subse quent confi rmato ry PSA value 0.2 ng/mL or great er. Value s obtai roslyn with diffe rent assay metho ds or kits canno t be used inter jones eably . Resul ts canno t be inter prete d as absol edgar evide nce of the prese nce or absen ce of truong mena . Not Available [facility] (Lab) [address] [place], [address], 06/13/2015 05:19:13 06/12/19 16 06/13/2015 lipid panel w/ direc t LDL, serum cholesterol, total 215 mg/dL 100-19 9 high Not Available [facility] (Lab) [address] [place], [address], 06/13/2015 05:19:14 06/12/19 16 06/13/2015 lipid panel w/ direc t LDL, serum triglyceride s 73 mg/dL 0-149 Not Available [facility] (Lab) [address] [place], [address], 06/13/2015 05:19:14 06/12/19 16 06/13/2015 lipid panel w/ direc t LDL, serum HDL cholesterol 85 mg/dL >39 Accor ding to ATP-I II Guide lines , HDL-C >59 mg/dL is consi dered a negat phan risk facto r for CHD. Not Available [facility] (Lab) [address] [place], [address], 06/13/2015 05:19:14 06/12/19 16 06/13/2015 lipid panel w/ direc t LDL, serum VLDL cholesterol margarita 15 mg/dL 5-40 Not Available [facility] (Lab) [address] [place], [address], 06/13/2015 05:19:14 06/12/19 16 06/13/2015 lipid panel w/ direc t LDL, serum LDL cholesterol calc 115 mg/dL 0-99 high Not Available [facility] (Lab) [address] [place], [address], 06/13/2015 05:19:14 06/12/19 16 06/13/2015 lipid panel w/ direc t LDL, serum lipid calculation Not Available [facility] (Lab) [address] [place], [address], 06/13/2015 05:19:14 09/22/19 15 09/21/2014 imagi ng/di agnos tic resul t No observ ation record ed. [address] , [place], [address], 09/30/2014 11:19:53 09/26/19 15 imagi ng/di agnos tic resul t No observ ation record ed. [email or web address] Not Available 2014 11:08:28 10/01/19 15 09/27/2014 imagi ng/di agnos tic resul t No observ ation record ed. [address] [place], [address], 10/03/2014 11:08:29 11/09/19 15 11/08/2014 imagi ng/di agnos tic resul t No observ ation record ed. [email or web address] Not Available 2014 15:10:11 12/02/19 15 12/01/2014 imagi ng/di agnos tic resul t No observ ation record ed. [email or web address] Not Available 2014 10:38:41 01/03/20 15 12/31/2014 imagi ng/di agnos tic resul t No observ ation record ed. [facility] (Rad) [address] [place], [address], 01/02/2015 09:50:17 01/07/20 15 01/05/2015 imagi ng/di agnos tic resul t No observ ation record ed. [email or web address] [facility]? [place], [address], 01/06/2015 09:32:38 03/10/20 15 03/10/2015 imagi ng/di agnos tic resul t No observ ation record ed. [email or web address] [facility] (Rad) [address] [place], [address], 03/10/2015 12:50:58 03/11/20 15 03/11/2015 CV EKG 12 lead JORGE ALBERTOMOJGAN MD: KIRILL ANN MD 6905 ACCT: [id number] ADMIT/ SERVIC E DATE: DISCHA RGE DATE: : 1959 PT TYPE: ADM IN SEX: M ORD SITE: [address] TEST DATE: 2014-05 PAT NAME: MOJGAN ADAME MENT: CARD 40 PATIEN T ID: [id number] ROOM: [facility] GENDER : MALE TECHNI MARIA ISABEL: CDN : [id number] BY: CADE ANN ORDER NUMBER : [id number] [id number] CJ Lu MD: FELIPE SELF MEASUR EMENTS INTERV ALS AXIS RATE: 145 P: 81 SC: 118 QRS: 19 QRSD: 82 T: 70 QT: 282 QTC: 438 INTERP RETIVE STATEM ENTS SINUS TACHYC ARDIA WITH SHORT SC INTERV AL WITH OCCASI ONAL VENTRI CULAR PREMAT URE COMPLE XES WITH OCCASI ONAL SUPRAV ENTRIC ULAR AMBER SEPTAL MYOCAR DIAL INFARC TION, PROBAB LY OLD NONSPE CIFIC ST SEGMEN T ABNORM ALITIE S, CANNOT RULE OUT ISCHEM IA ELECTR ONICAL LY SIGNED BY FELIPE SELF AT 17:03: 07 CDT [facility]? S [facility], [place], [address], 05/07/2015 04:08:47 03/11/20 15 03/11/2015 xr chest 1 view [email or web address] CHRISTIANSONAlbert MOJGAN SELF 6905 ADMIT/ SERVIC E DATE: ACCT: [id number] DISCHA RGE DATE: : 1959 SEX: M ORD SITE: [facility] PT TYPE: ADM IN JING MUHAMMAD MD: KIRILL ANN MD STUDY DATE REPORT # ORDER # EXT ORDER ID [id number] 1.002 PROC CODE: [id number] ORT PROCED URE DESCRI PTION: XR CHEST 1 VIEW PORTAB LE I MPRESS ION: NO ACUTE INFILT RATE. EXAMIN ATION: PORTAB LE CHEST X-RAY 1 VIEW ACCESS ION: [id number] EXAM DATE/T TRAVON: 2014 8:36 PM CLINIC AL HISTOR Y: SHORT OF BREATH . ARRHYT HMIA. SEIZUR E. STROKE . COMPAR TERRY: NONE. TECHNI QUE: AP PORTAB LE VIEW OF THE CHEST WAS OBTAIN ED. FINDIN GS: THE CARDIA C SILHOU ETTE, MEDIAS TINAL CONTOU RS, AND PULMON ADILSON VESSEL S APPEAR NORMAL . THE LUNGS ARE CLEAR. NO PNEUMO THORAX . NO CONSOL IDATIO NS OR EFFUSI ONS ARE SEEN. ELECTR ONICAL LY SIGNED BY: MARYBEL CROUCH ER10/07/2014 8:54 PM [facility] [place]? [place], [address], 05/07/2015 04:08:47 03/12/20 15 03/12/2015 MRI brain wo MOJGAN TABOR 6905 ADMIT/ SERVIC E DATE: ACCT: [id number] DISCHA RGE DATE: : 1959 SEX: M ORD SITE: [facility] PT TYPE: ADM IN JING MUHAMMAD MD: KIRILL ANN MD STUDY DATE REPORT # ORDER # EXT ORDER ID [id number] 1.001 PROC CODE: [id number] PROCED URE DESCRI PTION: MRI BRAIN WO I MPRESS ION: 1. ACUTE TO LATE ACUTE NONHEM ORRHAG IC INFARC TS INVOLV ING ALL 3 RIGHT HEMISP HERIC SUPRAT ENTORI AL VASCUL AR TERRIT ORIES. INFARC T INVOLV ES ANTERI OR RIGHT SUBINS ULAR CORTEX , MEDIAL RIGHT FRONTA L LOBE CORTEX , RIGHT THALAM US, RIGHT OCCIPI DOTTIE LOBE, RIGHT MESIAL TEMPOR AL LOBE. RIGHT ICA FLOW VOID AT SKULL BASE IS INTACT . NO SIGNIF ICANT EDEMA CURREN TLY TO CAUSE MASS EFFECT OR MIDLIN E SHIFT. 2. MULTIP LE OLD LACUNA R INFARC TS IN THE BILATE RAL BASAL GANGLI A AND BRAINS TEM. 3. AT LEAST MODERA TE PARENC HYMAL ATROPH Y AND SMALL VESSEL ISCHEM IC DISEAS E 4. DIFFUS E PARANA NEFTALY SINUS DISEAS E WITH COMPLE TE OPACIF ICATIO N OF THE LEFT MAXILL ADILSON SINUS EXAMIN ATION: MRI BRAIN WITHOU T CONTRA ST. ACCESS ION: [id number] EXAM DATE/T TRAVON: 2014 11:23 AM CLINIC AL HISTOR Y: ALTERE D MENTAL STATUS , SEIZUR E DISORD ER RECENT HOSPIT AL ADMISS ION FOR ALCOHO L INTOXI CATION . COMPAR TERRY: HEAD CT 2014. NO PRIOR BRAIN MRI TECHNI QUE: MULTIP LANAR MULTIS EQUENC E MRI OF THE BRAIN WAS OBTAIN ED WITHOU T THE USE OF IV CONTRA ST AGENT. FINDIN GS: THERE ARE MULTIP LE AREAS OF ABNORM AL INCREA SED DIFFUS ION SIGNAL WITH CORRES PONDIN G LOW ADC SIGNAL TO INDICA TE MULTIP LE ACUTE INFARC TS. THIS INCLUD ES THE ANTERI OR SUBINS ULAR CORTEX ON THE RIGHT, THE RIGHT THALAM US, THE RIGHT MESIAL TEMPOR AL LOBE, THE MEDIAL RIGHT FRONTA L LOBE CORTEX , AND THE RIGHT OCCIPI DOTTIE LOBE. THERE IS NO ASSOCI ATED ABNORM AL BLOOMI NG ARTIFA CT IN ANY OF THESE REGION S TO SUGGES T HEMORR HAGIC TRANSF ORMATI ON. THERE IS MINIMA L DEVELO PING T2 AND FLAIR SIGNAL IN EACH OF THESE REGION S TO SUGGES T MILD EDEMA. THERE IS NO SIGNIF ICANT MIDLIN E SHIFT OR MASS EFFECT RESULT ING. NO EXTRA- AXIAL FLUID COLLEC TIONS ARE SEEN. VENTRI CLES ARE ENLARG ED WITH PROMIN ENT BILATE RAL SULCI INDICA TING AT LEAST MODERA TE PARENC HYMAL ATROPH Y. THERE ARE PATCHY AND CONFLU ENT AREAS OF T2 AND FLAIR SIGNAL ABNORM ALITY IN THE PERIVE NTRICU LAR DEEP WHITE MATTER DISTRI BUTION CONSIS TENT WITH APPEAR ANCE OF SMALL VESSEL ISCHEM IC DISEAS E. ORBITA L CONTEN TS UNREMA RKABLE . THERE IS COMPLE TE OPACIF ICATIO N OF THE LEFT MAXILL ADILSON SINUS WITH ADDITI ONAL ETHMOI D LEFT FRONTA L AND RIGHT MAXILL ADILSON SINUS DISEAS E. MAJOR FLOW VOIDS AT THE SKULL BASE ARE INTACT . THERE IS SYMMET KEY ATROPH Y OF THE BILATE RAL HIPPOC AMPAL LOBES IN PROPOR TION TO ATROPH Y REMAIN DEVIN OF THE BRAIN. MULTIP LE OLD LACUNA R INFARC TS IN THE BILATE RAL BASAL GANGLI A ARE NOTED. OLD LACUNA R INFARC TS IN THE BRAINS TEM ARE SEEN WELL. ELECTR ONICAL LY SIGNED BY: CADE MARK [facility] 11:51 AM build [facility]? [place], [address], 05/07/2015 04:08:47 06/19/19 16 06/19/2015 imagi ng/di agnos tic resul t No observ ation record ed. [facility] Not Available 2015 09:33:44 06/19/19 16 06/19/2015 imagi ng/di agnos tic resul t No observ ation record ed. [facility] (Lab) [address] [place] [address] [place], [address], 06/19/2015 09:33:44 06/19/19 16 06/19/2015 imagi ng/di agnos tic resul t No observ ation record ed. [facility] (Lab) [address] [place] [address] [place], [address], 06/20/2015 09:57:26 06/20/19 16 06/19/2015 imagi ng/di agnos tic resul t No observ ation record ed. [address] [place], [address], 06/20/2015 10:01:56 05/09/20 19 05/09/2019 US, les aldana id arter y No observ ation record ed. [place] [id number] [facility] [address], [place], [address], 05/09/2019 17:59:20 Result Notes None recorded. Problems Name Problem SNOMED Code Status Onset Date Resolution Date Notes Provider Name and Address Organization Details Recorded Time Low back pain 447680068 Active Burke Ann MD Attn: [place] lu,[address] [facility], [place], [address], [place] [facility] 5 16:09:38 Essential hypertension 07988582 Active Burke Ann MD Attn: [place] lu,[address] [facility], [place], [address], [place] [facility] 6 18:34:53 Anxiety 74148328 Active Burke Ann MD Attn: [place] lu,[address] [facility], [place], [address], [place] [facility] 5 15:03:30 Laceration - injury 322179594 Active Burke Ann MD Attn: [place] lu,[address] [facility], [place], [address], [place] [facility] 5 15:31:20 Seizure disorder 383028494 Active Burke Ann MD Attn: [place] lu,[address] [facility], [place], [address], [facility] - [facility] 6 18:34:53 Cerebrovascula r accident 253334299 Active Burke Ann MD Attn: Zulemalivia lu,[address] [facility], [place], [address], [place] - [facility] 6 18:34:53 Insomnia 870756909 Active Burke Ann MD Attn: [place] tabitha,[address] [facility], [place], [address], [place] - [facility] 5 15:31:20 Problem Notes None recorded. Procedures Surgical History None recorded. Imaging Results Imaging Date Name Status LastModified by Organiz ation Details LastModified Time 09/21/2014 imaging/diagn ostic result completed [facility] [address] [place], [address], 09/30/2014 11:19:53 09/25/2014 [email or web address] not available 10/03/2014 11:08:28 09/27/2014 imaging/diagn ostic result completed [address] [place], [address], 10/03/2014 11:08:29 11/08/2014 imaging/diagn ostic result completed [email or web address] Information not available 11/11/2014 15:10:11 12/01/2014 imaging/diagn ostic result completed [email or web address] Information not available 12/02/2014 10:38:41 12/31/2014 imaging/diagn ostic result completed [facility] (Rad) [address] [place], [address], 01/02/2015 09:50:17 01/05/2015 imaging/diagn ostic result completed [email or web address] [facility]? [place], [address], 01/06/2015 09:32:38 03/10/2015 imaging/diagn ostic result completed [email or web address] [facility] (Rad) [address] [place], [address], 03/10/2015 12:50:58 03/11/2015 CV EKG 12 lead completed [facility]? [place], [address], 05/07/2015 04:08:47 03/11/2015 xr chest 1 view portable completed [facility]? [place], [address], 05/07/2015 04:08:47 03/12/2015 MRI brain wo completed [facility] [address] [place], [address], 05/07/2015 04:08:47 06/19/2015 imaging/diagn ostic result completed [facility] Information not available 06/19/2015 09:33:44 06/19/2015 imaging/diagn ostic result completed [facility] (Lab) [address] [place] [address] [place], [address], 06/19/2015 09:33:44 06/19/2015 imaging/diagn ostic result completed [facility] (Lab) [address] [place] [address] [place], [address], 06/20/2015 09:57:26 06/19/2015 imaging/diagn ostic result completed [address] [place], [address], 06/20/2015 10:01:56 05/09/2019 US, duplex, carotid artery completed [address] [place], [address], 05/09/2019 17:59:20 Procedure Notes None recorded. Medical Equipment None Reported. Allergies No known drug allergies Medications Name Sig Start Date Stop Date Status Note LastModified by Organization Details LastModified Time Prescription - Renewal active Not Available Not Available Not Available amoxicillin 500 mg capsule active Not Available Not Availab le Not Available latanoprost 0.005 % eye drops active Not Available Not Available Not Available atorvastatin 40 mg tablet active Not Available Not Available Not Available clonidine HCl 0.1 mg tablet active Not Available Not Availabl e Not Available acetaminophen 325 mg tablet active Not Available Not Availabl e Not Available nicotine 14 mg/24 hr daily transdermal patch active Not Available Not Available Not Available pravastatin 40 mg tablet active Not Available Not Available No t Available ibuprofen 800 mg tablet Take 1 tablet 3 times a day by oral route as directed for 30 days. active Not Available Not Available No t Available levetiracetam 500 mg tablet active Not Available Not Availabl e Not Available hydrocodone 5 mg-acetaminoph en 325 mg tablet active Not Available Not Available Not Available naproxen 250 mg tablet active Not Available Not Available No t Available phenytoin sodium extended 100 mg capsule TAKE THREE CAPSULES AT BEDTIME FOR SEIZURES active Not Available Not Available No t Available acetaminophen 300 mg-codeine 30 mg tablet active Not Available Not Available Not Available ciprofloxacin 250 mg tablet active Not Available Not Availabl e Not Available Aspir-Low 81 mg tablet,delayed release active Not Available Not Available Not Available tramadol 50 mg tablet Take 1 tablet 3 times a day by oral route as directed for 30 days. active Not Available Not Available No t Available simvastatin 40 mg tablet active Not Available Not Available No t Available ketorolac 10 mg tablet active Not Available Not Available No t Available lorazepam 0.5 mg tablet active Not Available Not Available No t Available pravastatin 10 mg tablet active Not Available Not Available No t Available chlordiazepoxi de 25 mg capsule active Not Available Not Available Not Available aspirin 325 mg tablet,delayed release Take 1 tablet every day by oral route. 2014 active Not Available Not Available Not Avai lable tamsulosin 0.4 mg capsule TAKE ONE CAPSULE BY MOUTH ONCE EVERY DAY DIRECTED active Not Available Not Available No t Available amlodipine 10 mg tablet Take 1 tablet every day by oral route with meals for 30 days. active Not Available Not Available No t Available hydrocodone 7.5 mg-acetaminoph en 325 mg tablet active Not Available Not Available Not Available cephalexin 500 mg capsule active Not Available Not Available N ot Available metoprolol tartrate 50 mg tablet active Not Available Not Available Not Available gabapentin 300 mg capsule active Not Available Not Available N ot Available folic acid 1 mg tablet Take 1 tablet every day by oral route with meals for 30 days. active Not Available Not Available No t Available levetiracetam 750 mg tablet TAKE 3 TABLETS BY MOUTH TWICE DAILY active Not Available Not Available No t Available hydrochlorothi azide 25 mg tablet active Not Available Not Available Not Available ibuprofen 600 mg tablet TAKE 1 TABLET THREE TIMES DAILY NEEDED FOR PAIN WITH FOOD active Not Available Not Available No t Available zolpidem 10 mg tablet Take 1 tablet every day by oral route as directed for 30 days. active Not Available Not Available No t Available Vitamin B-1 100 mg tablet TAKE 1 TABLET BY MOUTH ONCE EVERY DAY (FOR VITAMIN DEFICIENC Y) 2016 active Not Available Not Available Not Avai lable ondansetron 4 mg disintegrating tablet active Not Available Not Available Not Available losartan 100 mg tablet active Not Available Not Available No t Available fluoxetine 20 mg capsule TAKE ONE CAPSULE BY MOUTH ONCE EVERY DAY WITH A MEAL active Not Available Not Available No t Available naproxen 500 mg tablet active Not Available Not Available No t Available meclizine 25 mg chewable tablet active Not Available Not Available Not Available Siltussin-DM 10 mg-100 mg/5 mL oral syrup active Not Available Not Availabl e Not Available levetiracetam 1,000 mg tablet active Not Available Not Available Not Available Vitals Date Recorded Respiratory rate Body weight Body temperature Body height Body mass index (BMI) Heart rate Systolic blood pressure Diastolic blood pressure Provider Name and Address Organization Details Last Updated DateTime 5 22 /min 53147.9 80830 g 98.7 [degF] 170.18 cm 21.4 kg/m2 80 /min 148 mm[Hg] 94 mm[Hg] Leonor Arauz MA [facility] 5 15:57:48 Date Recorded Body height Body mass index (BMI) Body weight Heart rate Respiratory rate Body temperature Systolic blood pressure Diastolic blood pressure Provider Name and Address Organization Details Last Updated DateTime 5 170.18 cm 21.5 kg/m2 63659.1 5469 g 88 /min 20 /min 98.2 [degF] 132 mm[Hg] 80 mm[Hg] Fior Pereyra MA [facility] 5 12:08:47 Date Recorded Body temperature Body height Body mass index (BMI) Heart rate Respiratory rate Body weight Systolic blood pressure Diastolic blood pressure Provider Name and Address Organization Details Last Updated DateTime 5 97.9 [degF] 175.26 cm 20.2 kg/m2 78 /min 18 /min 27855.1 5469 g 142 mm[Hg] 90 mm[Hg] Darlene Roland [facility] 5 13:46:55 Date Recorded Heart rate Body height Respiratory rate Body mass index (BMI) Body weight Body temperature Systolic blood pressure Diastolic blood pressure Provider Name and Address Organization Details Last Updated DateTime 6 92 /min 170.18 cm 20 /min 21.5 kg/m2 36073.1 5469 g 98 [degF] 102 mm[Hg] 78 mm[Hg] Leonor Arauz MA [facility] 6 16:31:07 Social History None recorded. Functional Status None recorded. Mental Status None recorded. Family History Relationship Description Onset Age of this Age Resolved Age Notes LastModified by Organization Details LastModified Time Mother Heart disease 59 [email or web address] Not available 2015 16:32:53 Medical History Condition Response Coronary Artery Disease N Other N Atrial Fibrillation N High Blood Pressure Y Kidney or Bladder Problems N Thyroid Problems N GI Problems N Depression N COPD N Blood Clots N Skin Problems N Anemia N Heart Attack (CA) N Anxiety Disorder Y Diabetes N Muscle, Joint, or Bone Problems N Seizures/Epilepsy Y Acid Reflux (GERD) N Cancer N Stroke Y Asthma N Allergies N High Cholesterol N Hepatitis N Liver Disease N Headaches Y Heart Failure N Osteoporosis N Past Encounters Encounter ID Performer Location Encounter Start Date Encounter Closed Date Diagnosis/Indication Diagnosis SNOMED-CT Code Diagnosis ICD10 Code Diagnosis Note [id number] Jeannie Sherman RN [facility] (Adult/[facility] m Med) [address] [place] [address] [phone] 06/10/2014 13:26:21 06/10/2014 18:13:06 Laceration - injury 412461317 Seizure disorder 061768498 Cerebrovas cular accident 271995025 Insomnia 145373987 [id number] Nata Albert LPN [facility] (Adult/Fa m Med) [address] [place] [address] [phone] 09/18/2014 14:45:50 09/18/2014 18:01:22 Seizure disorder 931922020 Anxiety 40594715 Low back pain 896543368 [id number] Crystal Yeager [facility] (Adult/Fa m Med) [address] [place] [address] [phone] 04/16/2015 11:24:38 04/16/2015 17:33:17 Essential hypertension 07009450 I10 Anxiety 86866216 F41.9 Seizure disorder 8835356 02 G40.909 [id number] Dotty Peace [facility] (Adult/Fa m Med) [address] [place] [address] [phone] 06/12/2015 15:25:04 06/27/2015 12:04:51 Essential hypertension 71520837 I10 Seizure disorder 5321628 02 G40.909 Cerebrovas cular accident 911685306 I63.9 Health Concerns Section Related Observation LastModified by Organization Detai ls LastModified Time None Recorded Concern Status LastModified by Organization Details LastModified Time None Recorded Advance Directives Directive None Recorded Payers Encounter Date Sequence Insurance Name Policy Number Policy Gilbert Covered Member ID Gilbert Member ID Guarantor Name 06/10/2014 1 [facility] PRIOR TO 11/27/2020 (MEDICAID REPLACEMENT - HMO) Mojgan Tabor [id number] Mojgan Tabor 09/18/2014 1 [facility] PRIOR TO 11/27/2020 (MEDICAID REPLACEMENT - HMO) Mojgan Tabor [id number] Mojgan Tabor 04/16/2015 1 [facility] PRIOR TO 11/27/2020 (MEDICAID REPLACEMENT - HMO) Mojgan Tabor [id number] Mojgan Tabor 06/12/2015 1 [facility] PRIOR TO 11/27/2020 (MEDICAID REPLACEMENT - HMO) Mojgan Tabor [id number] Mojgan Tabor Notes Date Note Type Note Provider Name and Address Organization Details Recorded Time 04/16/2015 text/html FOLLOW up care since stroke Burke Ann MD Attn: [employer],[address] [facility], [place], [address], [facility], [facility] 04/16/2015 15:03:31
--- OUTSIDE RECORDS SUMMARY | 2024-06-08 05:27 | XMS_ITS | Continuity of Care Document ---
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 Name Role Phone Ampadu, MD Turk Primary Care Provider MD Anna Enriquez Emergency Provider [phone] Carrillo, MD Lorenzo Emergency Provider [phone] MD Misael Hobbs Emergency Provider [phone] MD Zeferino Morfin Admit Provider [phone] MD Christiano Lockhart Other Provider [phone] MD Jacquelyn Harrison Attending Provider [phone] MD Malachi Shields Other Provider MD Feliciano Bourne Other Provider AUGUSTO Guzman Other Provider DO Dave Hernandez Other Provider MD Yan Daily Emergency Provider + DO Koby Chadwick Emergency Provider MD Elmo Zhu Emergency Provider MD Carson Zavala Emergency Provider + DO Rachel Roach Admit Provider KOLTON James Attending Provider MD Chai Lentz Other Provider MD Power Richardson V. Other Provider [phone] MD Lupillo Vera. Other Provider MD Zina Collado Emergency Provider MD Reema Hardy. Emergency Provider MD Cam Ramos. Other Provider [phone] MD Ankit Henderson Admit Provider MD Chai Baron. Other Provider [phone] MD Alejandra Brock V. Other Provider [phone] AUGUSTO Duarte Other Provider MD Carson Zavala Other Provider MD David Cash Emergency Provider AUGUSTO Hernandez Emergency Provider MD Zeferino Morfin Attending Provider Care Teams Patient Care Team Team Status: Active Member Role Status Dates Burke Restrepo , Primary Care Provider Active Visit Care Team Team Status: Inactive Member Role Status Dates Misael Hobbs MD Emergency Provider Active Burke Restrepo , Primary Care Provider Active Zeferino Morfin MD Admit Provider Active Christiano Lockhart MD Other Provider Active Jacquelyn Harrison MD Attending Provider Active Malachi Shields MD Other Provider Active Feliciano Bourne MD Other Provider Active Natty Guzman , PA-C Other Provider Active Dave Hernandez DO Other Provider Active Visit Care Team Team Status: Inactive Member Role Status Dates Burke Restrepo , Primary Care Provider Active Yan Daily MD Emergency Provider Active Visit Care Team Team Status: Inactive Member Role Status Dates Burke Restrepo , Primary Care Provider Active Elmo Zhu MD Emergency Provider Active Visit Care Team Team Status: Inactive Member Role Status Dates Burke Restrepo , Primary Care Provider Active Zina Collado MD Emergency Provider Active Visit Care Team Team Status: Inactive Member Role Status , Primary Care Provider Active David Cash MD Emergency Provider Active Visit Care Team Team Status: Inactive Member Role Status , Primary Care Provider Active Anna Enriquez MD Emergency Provider Active Visit Care Team Team Status: Inactive Member Role Status , MD Primary Care Provider Active Maura Vizcaino , Emergency Provider Active Visit Care Team Team Status: Inactive Member Role Status , Primary Care Provider Active Misael Hobbs MD Emergency Provider Active Visit Care Team Team Status: Inactive Member Role Status , Primary Care Provider Active Yan Daily MD Emergency Provider Active Visit Care Team Team Status: Inactive Member Role Status , Primary Care Provider Active Koby Chadwick DO Emergency Provider Active Visit Care Team Team Status: Inactive Member Role Status , Primary Care Provider Active Carson Zavala MD Emergency Provider Active Rachel Roach DO Admit Provider Active Angela James APRN Attending Provider Active Chai Lentz MD Other Provider Active Power Richardson MD Other Provider Active Lupillo Vera MD Other Provider Active Visit Care Team Team Status: Inactive Member Role Status , Primary Care Provider Active Reema Hardy MD Emergency Provider Active Visit Care Team Team Status: Inactive Member Role Status , Primary Care Provider Active Yan Daily MD Emergency Provider Active Visit Care Team Team Status: Inactive Member Role Status , Primary Care Provider Active Elmo Zhu MD Emergency Provider Active Cam Ramos MD Other Provider Active Ankit Henderson MD Admit Provider Active Angela James , KOLTON Attending Provider Active Chai Baron MD Other Provider Active Alejandra Brock MD Other Provider Active Malachi Shields MD Other Provider Active Antionette Duarte PA-C Other Provider Active Power Richardson MD Other Provider Active Lupillo Vera MD Other Provider Active Carson Zavala MD Other Provider Active Visit Care Team Team Status: Inactive Member Role Status Brittany Restrepo , Primary Care Provider Active Shakila Hernandez PA-C Emergency Provider Active Rachel Roach , DO Admit Provider Active Zeferino Morfin MD Attending Provider Active Cam Ramos MD Other Provider Active Chief Complaint and Reason for Visit Chief Complaint DISLODGED TRACHEOSTO MY abd pain pna G tube fell out pulled out g-tube ABD DISTENTION MOUTH/THROAT PAIN AFTER TRACH REINSERTED VOMITING S/P G-TUBE FEEDINGS Healthcare Associated N/V/D PULLED OUT TRACH - REPLACED BY EMS ? SZ PER FACILITY STAFF Seizure Disorder G-TUBE DISPLACEMENT AMS, UTI, sz disorder Reason for Visit Acute kidney injury Acute UTI Atrial fibrillation with rapid ventricular response Elevated LFTs Increased tracheal secretions MRSA colonization Pneumonia Tracheostomy in place Cerebrovascular accident Gastrostomy tube dependent Seizure disorder Gastrojejunal tube present HCAP (healthcare-associated pneumonia) Pneumonia Sepsis Seizure disorder Tracheostomy dependence Acute UTI Atrial fibrillation with rapid ventricular response Chronic obstructive pulmonary disease Chronic respiratory failure with hypoxia Intractable seizure disorder Lung collapse Seizures Tracheostomy in place Vegetative state Cerebrovascular accident Gastrostomy tube dependent Seizure disorder Thrombocytopenia Tracheostomy dependence Unilateral complete AKA Mucus plugging of bronchi Altered mental status Gastrojejunal tube present Intractable seizure disorder Rash of face Seizures UTI (urinary tract infection) History of multiple strokes Allergies, Adverse Reactions, Alerts Allergen Type Severity Reaction Last Updated Verified Status clonazepam Allergy Unknown Unknown March 10, 2024 7:54am Yes Active Social History Smoking Status Status Start Date End Date Date of Observa tion Ex-smoker (finding) March 30, 2024 3:31am Observation Status Observation Response Date of Response Do You Feel Safe in your Home? Yes S eptember 2023 10:34pm Has Lack of Trans Kept You F rom Med Appts or Getting Meds? No February 09, 2024 10:34pm In Past 12 Months, Were You Worried Your Food Would Run Out? Never True February 09, 2024 10:34pm What is Your Housing Situation Today? I Have Blanche sing February 09, 2024 10:34pm Are You Worried That in Next 2 Mo, You Won't Have Housing? No February 09, 2024 10:34pm Do You Have Trouble Paying Y our Heating Or Electricity Bill? No February 09, 2024 10:34pm Do You Have Trouble Paying For Medicines? No February 09, 2024 10:34pm Are You Currently Unemployed and Looking for Work? No February 09, 2024 10:34pm Highest Level of Education Completed Don't Know February 09, 2024 10:34pm Do You Have Trouble With Chi ldcare/Care of a Family Member? No February 09, 2024 10:34pm alcohol intake former March 30 2:31am Substance use type does not use March 30, 2024 2:31am Additional Data Assigned Sex Male Family History Relationship Condition Age at Onset Recorded Date/T db Not Specified Unknown family medical history Unknown Problems Active Problems Medical Problem Onset Date Status Acute kidney injury Active Intractable seizure disorder Act phan Malfunction of gastrostomy tube Active Gastrostomy tube dependent Activ e UTI (urinary tract infection) Ac tive Benign prostatic hyperplasia Act phan History of multiple strokes Acti ve Sepsis with acute hypoxic respiratory failure Active Unilateral complete AKA Active COVID-19 virus infection Active Gastrojejunal tube present Activ e Increased tracheal secretions Ac tive Chronic respiratory failure with hypoxia Active Chronic hypoxemic respiratory failure Active Aphasia Active Rash of face Active Breath shortness Active Lung collapse Active DVT (deep venous thrombosis) Act phan Vegetative state Active Acute and chronic respiratory failure Active Gastrojejunostomy tube dislodgement Active Elevated LFTs Active Dysphagia Active Diarrhea Active HCAP (healthcare-associated pneumonia) Active Abnormal chest xray Active Seizure disorder Active Seizures Active Thrombocytopenia Active Tracheitis Active Tracheostomy complication Active Hypoxia Active Sepsis Active Tracheostomy dependence Active MRSA colonization Active Acute UTI Active Altered mental status Active AMS (altered mental status) Acti ve Chronic obstructive pulmonary disease Active Tracheostomy in place Active Tracheostomy in place Active Atelectasis of right lung Active Pneumonia Active Pneumonia Active Pneumonia Active Status epilepticus Active Cerebrovascular accident Active Atrial fibrillation with rapid ventricular respo nse Active Inactive/Resolved Problems Medical Problem Onset Date Status Encounter for tracheostomy tube change Resolved Chronic indwelling Jensen catheter Resolved Abrasion of nose Resolved Gastrostomy tube dysfunction Res olved UTI (urinary tract infection) Re solved Mucus plug in respiratory tract Resolved Gastrostomy malfunction Resolved Mucus plugging of bronchi Resolv ed Complication of tracheostomy tube Resolved Tracheostomy care Resolved Tracheostomy care Resolved PEG (percutaneous endoscopic gastrostomy) status Resolved Distended abdomen Resolved UTI (urinary tract infection) due to urinary ind welling catheter Resolved Diarrhea Resolved Hyponatremia Resolved G tube feedings Resolved Community acquired pneumonia Res olved Trachea displaced Resolved Contusion of forehead Resolved Status post insertion of per cutaneous endoscopic gastrostomy (PEG) tube Resolved Tracheostomy complication Resolv ed Tracheostomy malfunction Resolve d Bone lesion Resolved Hypoxia Resolved Acute UTI (urinary tract infection) Resolved Head injury Resolved Esophagitis Resolved Nausea and vomiting Resolved Abdominal pain Resolved Pneumonia Resolved Constipation Resolved Abdominal pain of unknown cause Resolved Acute tracheostomy management Re solved Medications Medication Status Dose Units Route Directions Qty Days St art Date End Date Instructions Bisacodyl Active 10 MG RECTAL DAILY 2022 11:00pm if no results for MOM Sennosides (Senna) 8.6 mg Tablet Active 8.6 MG FEED TUBE TWICE A DAY 2022 11:00pm Guaifenesin Active 300 MG FEED TUBE TWICE A DAY July 08, 2023 8:16pm Magnesium Hydroxide (Milk Of Magnesia) 400 mg/5 mL Suspension Active 30 ML PO BEDTIME December 12, 2023 11:00pm If no BM in 3 days Polyethylene Glycol 3350 Active 17 GM FEED TUBE DAILY December 17, 2022 11:00pm Metoprolol Tartrate Active 25 MG FEED TUBE TWICE A DAY December 17, 2022 11:00pm Atorvastatin Active 40 MG PO BEDTIME Sep tembe 2023 11:00pm Ipratropium-A lbuterol Active 3 ML INHALATI ON Q6H [facility] 11:00pm Artificial Tears Solution Active 1 DROP EACH EYE As Needed [facility] 2023 11:00pm instill 1 drop per eye as needed for dry eye Thiamine Hcl (Vitamin B1) Active 100 MG FEED TUBE DAILY [facility] 11:00pm Famotidine Active 20 MG FEED TUBE TWICE A DAY [facility]20[facility] 11:00pm Valproic Acid (As Sodium Salt) Active 1250 MG FEED TUBE FOUR TIMES DAILY [facility]20[facility] 11:00pm Magnesium Citrate (Citroma) Solution Active 296 ML PO DAILY [facility]20[facility] 11:00pm if no results from enema Folic Acid Active 1 MG FEED TUBE DAILY [facility]20[facility] 11:00pm Levetiracetam Active 1500 MG FEED TUBE TWICE A DAY [facility] 2023 11:00pm Calcium Carbonate Active 1250 MG PO Q6H [facility]20[facility] 11:00pm Lacosamide Active 200 MG FEED TUBE TWICE A DAY [facility] 2023 11:00pm Clobazam Active 10 MG FEED TUBE DAILY [facility] 11:00pm Apixaban (Eliquis) 5 mg Tablet Active 5 MG FEED TUBE TWICE A DAY March 29, 2024 11:00pm Aspirin Active 81 MG FEED TUBE DAILY March 29, 2024 11:00pm Acetaminophen Active 650 MG FEED TUBE Q4H March 29, 2024 11:00pm Meropenem Active 1 GM IVPB Q8H 2023 12:00am Immunizations Immunization Event Date Not Given Reason Dose Number Forklift Picker Lot Number Vaccine Information Statement (VIS) Detail Fluarix Quad 6m+ March 19, 2015 Fluarix Quad 6m+ June 23, 2016 Fluarix Quad 6m+ June 15, 2017 Fluarix Quad 6m+ March 24, 2018 Flulaval Quad 3YR+ March 19, 2015 Flulaval Quad 3YR+ June 23, 2016 Flulaval Quad 3YR+ June 15, 2017 Flulaval Quad 3YR+ March 24, 2018 Pneumococcal Polysacc. Vaccine, 23 valent August 13, 2015 Pneumococcal Polysacc. Vaccine, 23 valent February 07, 2015 Pneumococcal Polysacc. Vaccine, 23 valent February 04, 2016 SARS-COV-2 (COVID-19) Pfizer June 11, 2020 SARS-COV-2 (COVID-19) [facility] July 02, 2020 SARS-COV-2 (COVID-19) Pfizer April 06, 2021 Tetanus, Diphtheria, Pertussis (Tdap) March 23, 2017 Tetanus, Diphtheria, Pertussis (Tdap) June 06, 2017 Procedures Procedure Date Performed Status Blood Culture December 13, 2023 completed Blood Culture December 13, 2023 completed Sputum Culture December 13, 2023 completed Urine Culture December 13, 2023 completed Urine Culture December 23, 2023 completed Blood Culture January 05, 2024 completed Sputum Culture January 02, 2024 completed Sputum Culture February 15, 2024 completed Blood Culture February 14, 2024 completed Blood Culture February 14, 2024 completed Urine Culture February 10, 2024 completed Blood Culture April 01, 2024 active Urine Culture March 29, 2024 completed Relevant Diagnostic Tests and/or Laboratory Data Laboratory Results Test Date/Time Result Interpretation Reference Range Result Comment Performing Site White Blood Count December 05, 2023 2:14am 8.8 K/mm3 4.5-10.0 [facility] [id number] [facility] [address] [address] White Blood Count December 18, 2023 6:22am 8.0 K/mm3 4.5-10.0 [facility] [id number] [address] [place] [address] White Blood Count December 23, 2023 10:56am 11.2 K/mm3 Above high normal 4.5-10.0 [facility] [id number] [address] [place] [address] White Blood Count December 30, 2023 6:39am 14.8 K/mm3 Above high normal 4.5-10.0 [facility] [id number] [facility] [address] [address] White Blood Count January 07, 2024 3:01am 5.7 K/mm3 4.5-10.0 [facility] [id number] [address] [place] [address] White Blood Count January 07, 2024 9:40pm 6.1 K/mm3 4.5-10.0 [facility] [id number] [address] [place] [address] White Blood Count February 08, 2024 4:46am 7.8 K/mm3 4.5-10.0 [facility] [id number] [address] [place] [address] White Blood Count February 16, 2024 4:04am 6.2 K/mm3 4.5-10.0 [facility] [id number] [address] [place] [address] White Blood Count April 02, 2024 5:35am 6.8 K/mm3 4.5-10.0 [facility] [id number] [address] [place] [address] Red Blood Count December 05, 2023 2:14am 4.29 M/mm3 Below low normal 4.6-6.20 [facility] [id number] [address] [address] Red Blood Count December 18, 2023 6:22am 3.44 M/mm3 Below low normal 4.6-6.20 [facility] [id number] [address] [address] Red Blood Count December 23, 2023 10:56am 4.01 M/mm3 Below low normal 4.6-6.20 [facility] [id number] [address] [address] Red Blood Count December 30, 2023 6:39am 4.31 M/mm3 Below low normal 4.6-6.20 [facility] [id number] [address] [address] Red Blood Count January 07, 2024 3:01am 3.12 M/mm3 Below low normal 4.6-6.20 [facility] [id number] [address] [address] Red Blood Count January 07, 2024 9:40pm 3.36 M/mm3 Below low normal 4.6-6.20 [facility] [id number] [address] [address] Red Blood Count February 08, 2024 4:46am 4.27 M/mm3 Below low normal 4.6-6.20 [facility] [id number] [address] [address] Red Blood Count February 16, 2024 4:04am 3.33 M/mm3 Below low normal 4.6-6.20 [facility] [id number] [address] [address] Red Blood Count April 02, 2024 5:35am 3.83 M/mm3 Below low normal 4.6-6.20 [facility] [id number] [address] [address] Hemoglobin December 05, 2023 2:14am 14.0 g/dL 14.0-18.0 [facility] [id number] [address] [address] Hemoglobin December 18, 2023 6:22am 11.1 g/dL Below low normal 14.0-18.0 [facility] [id number] [address] [address] Hemoglobin December 23, 2023 10:56am 12.6 g/dL Below low normal 14.0-18.0 [facility] [id number] [address] [place] [address] Hemoglobin December 30, 2023 6:39am 14.1 g/dL 14.0-18.0 [facility] [id number] [address] [place] [address] Hemoglobin January 07, 2024 3:01am 10.2 g/dL Below low normal 14.0-18.0 [facility] [id number] [address] [place] [address] Hemoglobin January 07, 2024 9:40pm 11.1 g/dL Below low normal 14.0-18.0 [facility] [id number] [address] [place] [address] Hemoglobin February 08, 2024 4:46am 14.3 g/dL 14.0-18.0 Delta: 11.1 on 01/07/24-2240 [facility] [id number] [facility] [address] [address] Hemoglobin February 16, 2024 4:04am 10.8 g/dL Below low normal 14.0-18.0 [facility] [id number] [address] [address] Hemoglobin April 02, 2024 5:35am 12.3 g/dL Below low normal 14.0-18.0 [facility] [id number] [facility] [address] [address] Hematocrit December 05, 2023 2:14am 41.6 % Below low normal 42.0-52.0 [facility] [id number] [facility] [address] [address] Hematocrit December 18, 2023 6:22am 34.1 % Below low normal 42.0-52.0 [facility] [id number] [facility] [address] [address] Hematocrit December 23, 2023 10:56am 40.0 % Below low normal 42.0-52.0 [facility] [id number] [facility] [address] [address] Hematocrit December 30, 2023 6:39am 42.6 % 42.0-52.0 [facility] [id number] [facility] [address] [address] Hematocrit January 07, 2024 3:01am 31.4 % Below low normal 42.0-52.0 [facility] [id number] [address] [place] [address] Hematocrit January 07, 2024 9:40pm 33.7 % Below low normal 42.0-52.0 [facility] [id number] [address] [address] Hematocrit February 08, 2024 4:46am 43.1 % 42.0-52.0 [facility] [id number] [address] [place] [address] Hematocrit February 16, 2024 4:04am 33.4 % Below low normal 42.0-52.0 [facility] [id number] [address] [place] [address] Hematocrit April 02, 2024 5:35am 37.9 % Below low normal 42.0-52.0 [facility] [id number] [address] [address] Mean Corpuscular Volume December 05, 2023 2:14am 97.0 fL 80-100 [facility] [id number] [address] [address] Mean Corpuscular Volume December 18, 2023 6:22am 99.1 fL 80-100 [facility] [id number] [address] [address] Mean Corpuscular Volume December 23, 2023 10:56am 99.8 fL 80-100 [facility] [id number] [address] [address] Mean Corpuscular Volume December 30, 2023 6:39am 98.8 fL 80-100 [facility] [id number] [address] [address] Mean Corpuscular Volume January 07, 2024 3:01am 100.6 fL Above high normal 80-100 [facility] [id number] [address] [place] [address] Mean Corpuscular Volume January 07, 2024 9:40pm 100.3 fL Above high normal 80-100 [facility] [id number] [address] [address] Mean Corpuscular Volume February 08, 2024 4:46am 100.9 fL Above high normal 80-100 [facility] [id number] [address] [place] [address] Mean Corpuscular Volume February 16, 2024 4:04am 100.3 fL Above high normal 80-100 [facility] [id number] [address] [place] [address] Mean Corpuscular Volume April 02, 2024 5:35am 99.0 fL 80-100 [facility] [id number] [address] [place] [address] Mean Corpuscular Hemoglobin December 05, 2023 2:14am 32.6 pg 26-34 [facility] [id number] [address] [place] [address] Mean Corpuscular Hemoglobin December 18, 2023 6:22am 32.3 pg 26-34 [facility] [id number] [address] [place] [address] Mean Corpuscular Hemoglobin December 23, 2023 10:56am 31.4 pg 26-34 [facility] [id number] [address] [place] [address] Mean Corpuscular Hemoglobin December 30, 2023 6:39am 32.7 pg 26-34 [facility] [id number] [address] [place] [address] Mean Corpuscular Hemoglobin January 07, 2024 3:01am 32.7 pg 26-34 [facility] [id number] [address] [place] [address] Mean Corpuscular Hemoglobin January 07, 2024 9:40pm 33.0 pg 26-34 [facility] [id number] [address] [place] [address] Mean Corpuscular Hemoglobin February 08, 2024 4:46am 33.5 pg 26-34 [facility] [id number] [address] [place] [address] Mean Corpuscular Hemoglobin February 16, 2024 4:04am 32.4 pg 26-34 [facility] [id number] [address] [place] [address] Mean Corpuscular Hemoglobin April 02, 2024 5:35am 32.1 pg 26-34 [facility] [id number] [address] [place] [address] Mean Corpuscular Hemoglobin Concent December 05, 2023 2:14am 33.7 g/dL 32-36 [facility] [id number] [address] [place] [address] Mean Corpuscular Hemoglobin Concent December 18, 2023 6:22am 32.6 g/dL [address] [place] [address] [facility] [id number] [address] [place] [address] Mean Corpuscular Hemoglobin Concent December 23, 2023 10:56am 31.5 g/dL Below low normal [address] [facility] [id number] [address] [place] [address] Mean Corpuscular Hemoglobin Concent December 30, 2023 6:39am 33.1 g/dL [address] [place] [address] [facility] [id number] [address] [place] [address] Mean Corpuscular Hemoglobin Concent January 07, 2024 3:01am 32.5 g/dL [address] [place] [address] [facility] [id number] [address] [place] [address] Mean Corpuscular Hemoglobin Concent January 07, 2024 9:40pm 32.9 g/dL [address] [place] [address] [facility] [id number] [address] [place] [address] Mean Corpuscular Hemoglobin Concent February 08, 2024 4:46am 33.2 g/dL [address] [place] [address] Laboratory [id number] [address] [place] [address] Mean Corpuscular Hemoglobin Concent February 16, 2024 4:04am 32.3 g/dL [address] [place] [address] Laboratory [id number] [address] [place] [address] Mean Corpuscular Hemoglobin Concent April 02, 2024 5:35am 32.5 g/dL [address] [place] [address] [facility] [id number] [address] [place] [address] Red Cell Distribution Width December 05, 2023 2:14am 12.8 % 11.5-14.5 [facility] [id number] [address] [place] [address] 50227 Red Cell Distribution Width December 18, 2023 6:22am 13.5 % 11.5-14.5 [facility] [id number] [address] [place] [address] 97672 Red Cell Distribution Width December 23, 2023 10:56am 13.2 % 11.5-14.5 [facility] [id number] [address] [place] [address] 15020 Red Cell Distribution Width December 30, 2023 6:39am 13.9 % 11.5-14.5 [facility] [id number] [address] [facility] 52301 Red Cell Distribution Width January 07, 2024 3:01am 14.3 % 11.5-14.5 [facility] [id number] [address] [facility] 94262 Red Cell Distribution Width January 07, 2024 9:40pm 14.5 % 11.5-14.5 [facility] [id number] [address] [facility] 97003 Red Cell Distribution Width February 08, 2024 4:46am 13.1 % 11.5-14.5 [facility] [id number] [address] [facility] 61071 Red Cell Distribution Width February 16, 2024 4:04am 13.1 % 11.5-14.5 [facility] [id number] [address] [place] [address] 89363 Red Cell Distribution Width April 02, 2024 5:35am 13.3 % 11.5-14.5 [facility] [id number] [address] [place] [address] 04267 Platelet Count December 05, 2023 2:14am 133 k/mm3 Below low normal 150-375 [facility] [id number] [address] [facility] 47593 Platelet Count December 18, 2023 6:22am 213 k/mm3 150-375 [facility] [id number] [address] [place] [address] 72933 Platelet Count December 23, 2023 10:56am 253 k/mm3 150-375 [facility] [id number] [address] [facility] 41431 Platelet Count December 30, 2023 6:39am 151 k/mm3 150-375 [facility] [id number] [address] [facility] 82704 Platelet Count January 07, 2024 3:01am 167 k/mm3 150-375 [facility] [id number] [address] [facility] 16809 Platelet Count January 07, 2024 9:40pm 192 k/mm3 150-375 [facility] [id number] [address] [facility] 16770 Platelet Count February 08, 2024 4:46am 129 k/mm3 Below low normal 150-375 [facility] [id number] [address] [place] [address] 22279 Platelet Count February 16, 2024 4:04am 95 k/mm3 Below low normal 150-375 NO CLOTS [facility] [id number] [address] [place] [address] 75493 Platelet Count April 02, 2024 5:35am 141 k/mm3 Below low normal 150-375 [facility] [id number] [address] [place] [address] 11146 Percent Immature Platelet Fraction December 05, 2023 2:14am 25.1 % Above high normal 0.9-11.2 - An elevated IPF indicates platelets are being produced.- High IPF levels are related to increased peripheral platelet destruction.- A low platelet and low IPF is consistent with a platelet production disorder. [facility] [id number] [address] [place] [address] 84493 Percent Immature Platelet Fraction December 15, 2023 3:04am 20.1 % Above high normal 0.9-11.2 - An elevated IPF indicates platelets are being produced.- High IPF levels are related to increased peripheral platelet destruction.- A low platelet and low IPF is consistent with a platelet production disorder. [facility] [id number] [address] [place] [address] 49080 Percent Immature Platelet Fraction December 30, 2023 6:39am 16.4 % Above high normal 0.9-11.2 - An elevated IPF indicates platelets are being produced.- High IPF levels are related to increased peripheral platelet destruction.- A low platelet and low IPF is consistent with a platelet production disorder. [facility] [id number] [address] [place] [address] 88034 Percent Immature Platelet Fraction January 05, 2024 4:08am 22.9 % Above high normal 0.9-11.2 - An elevated IPF indicates platelets are being produced.- High IPF levels are related to increased peripheral platelet destruction.- A low platelet and low IPF is consistent with a platelet production disorder. [facility] [id number] [address] [place] [address] 41719 Percent Immature Platelet Fraction February 08, 2024 4:46am 18.1 % Above high normal 0.9-11.2 - An elevated IPF indicates platelets are being produced.- High IPF levels are related to increased peripheral platelet destruction.- A low platelet and low IPF is consistent with a platelet production disorder. [facility] [id number] [address] 15347 Percent Immature Platelet Fraction February 16, 2024 4:04am 16.1 % Above high normal 0.9-11.2 - An elevated IPF indicates platelets are being produced.- High IPF levels are related to increased peripheral platelet destruction.- A low platelet and low IPF is consistent with a platelet production disorder. [facility] [id number] [address] 04186 Percent Immature Platelet Fraction April 02, 2024 5:35am 16.4 % Above high normal 0.9-11.2 - An elevated IPF indicates platelets are being produced.- High IPF levels are related to increased peripheral platelet destruction.- A low platelet and low IPF is consistent with a platelet production disorder. [facility] [id number] [address] 08587 Mean Platelet Volume December 05, 2023 2:14am 13.8 fL Above high normal 7.4-10.4 [facility] [id number] [address] 34571 Mean Platelet Volume December 18, 2023 6:22am 11.5 fL Above high normal 7.4-10.4 [facility] [id number] [address] [address] Mean Platelet Volume December 23, 2023 10:56am 12.4 fL Above high normal 7.4-10.4 [facility] [id number] [address] 96501 Mean Platelet Volume December 30, 2023 6:39am 13.3 fL Above high normal 7.4-10.4 [facility] [id number] [address] 78751 Mean Platelet Volume January 07, 2024 3:01am 12.0 fL Above high normal 7.4-10.4 [facility] [id number] [address] 27087 Mean Platelet Volume January 07, 2024 9:40pm 11.6 fL Above high normal 7.4-10.4 [facility] [id number] [address] 37424 Mean Platelet Volume February 08, 2024 4:46am 13.5 fL Above high normal 7.4-10.4 [facility] [id number] [address] 89154 Mean Platelet Volume February 16, 2024 4:04am 14.0 fL Above high normal 7.4-10.4 [facility] [id number] [address] [place] [address] 55040 Mean Platelet Volume April 02, 2024 5:35am 13.2 fL Above high normal 7.4-10.4 [facility] [id number] [address] [address] Nucleated Red Blood Cells % December 05, 2023 2:14am 0.0 % 0.0-0.2 [facility] [id number] [address] [place] [address] 10686 Nucleated Red Blood Cells % December 16, 2023 3:55am 0.0 % 0.0-0.2 [facility] [id number] [address] 21881 Nucleated Red Blood Cells % December 23, 2023 10:56am 0.0 % 0.0-0.2 [facility] [id number] [address] [place] [address] 46309 Nucleated Red Blood Cells % December 30, 2023 6:39am 0.0 % 0.0-0.2 [facility] [id number] [address] 17485 Nucleated Red Blood Cells % January 07, 2024 3:01am 0.0 % 0.0-0.2 [facility] [id number] [address] 52842 Nucleated Red Blood Cells % January 07, 2024 9:40pm 0.0 % 0.0-0.2 [facility] [id number] [address] 23576 Nucleated Red Blood Cells % February 08, 2024 4:46am 0.0 % 0.0-0.2 [facility] [id number] [address] 87291 Nucleated Red Blood Cells % February 16, 2024 4:04am 0.3 % Above high normal 0.0-0.2 [facility] [id number] [address] 53466 Nucleated Red Blood Cells % April 02, 2024 5:35am 0.0 % 0.0-0.2 [facility] [id number] [address] 67956 Immature Granulocyte % (Auto) December 05, 2023 2:14am 0.1 % 0-0.5 [facility] [id number] [address] [place] [address] 06929 Immature Granulocyte % (Auto) December 16, 2023 3:55am 0.2 % 0-0.5 [facility] [id number] [address] [place] [address] 14447 Immature Granulocyte % (Auto) December 23, 2023 10:56am 0.3 % 0-0.5 [facility] [id number] [address] [place] [address] 55804 Immature Granulocyte % (Auto) December 30, 2023 6:39am 0.3 % 0-0.5 [facility] [id number] [address] [place] [address] 98268 Immature Granulocyte % (Auto) January 07, 2024 3:01am 0.2 % 0-0.5 [facility] [id number] [address] [place] [address] 42444 Immature Granulocyte % (Auto) January 07, 2024 9:40pm 0.3 % 0-0.5 [facility] [id number] [address] [place] [address] 54075 Immature Granulocyte % (Auto) February 08, 2024 4:46am 0.3 % 0-0.5 [facility] [id number] [address] [place] [address] 87880 Immature Granulocyte % (Auto) February 16, 2024 4:04am 0.2 % 0-0.5 [facility] [id number] [address] [place] [address] 66368 Immature Granulocyte % (Auto) April 02, 2024 5:35am 0.3 % 0-0.5 [facility] [id number] [address] [place] [address] 68677 Neutrophils (%) (Auto) December 05, 2023 2:14am 48.7 % 45.5-73.1 [facility] [id number] [address] [place] [address] 05131 Neutrophils (%) (Auto) December 16, 2023 3:55am 56.5 % 45.5-73.1 [facility] [id number] [address] [place] [address] 02671 Neutrophils (%) (Auto) December 23, 2023 10:56am 60.1 % 45.5-73.1 [facility] [id number] [address] [place] [address] 61123 Neutrophils (%) (Auto) December 30, 2023 6:39am 72.1 % 45.5-73.1 [facility] [id number] [address] [place] [address] 38905 Neutrophils (%) (Auto) January 07, 2024 3:01am 41.1 % Below low normal 45.5-73.1 [facility] [id number] [address] [place] [address] 93402 Neutrophils (%) (Auto) January 07, 2024 9:40pm 52.1 % 45.5-73.1 [facility] [id number] [address] [place] [address] 92723 Neutrophils (%) (Auto) February 08, 2024 4:46am 56.8 % 45.5-73.1 [facility] [id number] [address] [place] [address] 76049 Neutrophils (%) (Auto) February 16, 2024 4:04am 54.4 % 45.5-73.1 [facility] [id number] [address] [place] [address] 46786 Neutrophils (%) (Auto) April 02, 2024 5:35am 43.7 % Below low normal 45.5-73.1 [facility] [id number] [address] [place] [address] 27971 Lymphocytes (%) (Auto) December 05, 2023 2:14am 35.1 % 18.3-44.2 [facility] [id number] [address] [place] [address] 63915 Lymphocytes (%) (Auto) December 16, 2023 3:55am 22.7 % 18.3-44.2 [facility] [id number] [address] [place] [address] 32557 Lymphocytes (%) (Auto) December 23, 2023 10:56am 27.3 % 18.3-44.2 [facility] [id number] [address] [place] [address] 81166 Lymphocytes (%) (Auto) December 30, 2023 6:39am 19.1 % 18.3-44.2 [facility] [id number] [address] [place] [address] 42121 Lymphocytes (%) (Auto) January 07, 2024 3:01am 41.6 % 18.3-44.2 [facility] [id number] [address] [place] [address] 57471 Lymphocytes (%) (Auto) January 07, 2024 9:40pm 32.6 % 18.3-44.2 [facility] [id number] [address] [place] [address] 58961 Lymphocytes (%) (Auto) February 08, 2024 4:46am 31.4 % 18.3-44.2 [facility] [id number] [address] [place] [address] 59576 Lymphocytes (%) (Auto) February 16, 2024 4:04am 30.8 % 18.3-44.2 [facility] [id number] [address] [place] [address] 88793 Lymphocytes (%) (Auto) April 02, 2024 5:35am 36.1 % 18.3-44.2 [facility] [id number] [address] [place] [address] 54396 Monocytes (%) (Auto) December 05, 2023 2:14am 11.2 % Above high normal 2.6-8.5 [facility] [id number] [address] [place] [address] 01984 Monocytes (%) (Auto) December 16, 2023 3:55am 15.6 % Above high normal 2.6-8.5 [facility] [id number] [address] [place] [address] 37329 Monocytes (%) (Auto) December 23, 2023 10:56am 7.6 % 2.6-8.5 [facility] [id number] [address] [place] [address] 02110 Monocytes (%) (Auto) December 30, 2023 6:39am 6.5 % 2.6-8.5 [facility] [id number] [address] [place] [address] 24476 Monocytes (%) (Auto) January 07, 2024 3:01am 9.6 % Above high normal 2.6-8.5 [facility] [id number] [address] [place] [address] 73044 Monocytes (%) (Auto) January 07, 2024 9:40pm 9.6 % Above high normal 2.6-8.5 [facility] [id number] [address] [place] [address] 16543 Monocytes (%) (Auto) February 08, 2024 4:46am 6.5 % 2.6-8.5 [facility] [id number] [address] [place] [address] 51423 Monocytes (%) (Auto) February 16, 2024 4:04am 10.3 % Above high normal 2.6-8.5 [facility] [id number] [address] [place] [address] 10290 Monocytes (%) (Auto) April 02, 2024 5:35am 8.7 % Above high normal 2.6-8.5 [facility] [id number] [address] [place] [address] 85676 Eosinophils (%) (Auto) December 05, 2023 2:14am 4.8 % Above high normal 0-4.4 [facility] [id number] [address] [place] [address] 64877 Eosinophils (%) (Auto) December 16, 2023 3:55am 4.6 % Above high normal 0-4.4 [facility] [id number] [address] [place] [address] 23162 Eosinophils (%) (Auto) December 23, 2023 10:56am 4.3 % 0-4.4 [facility] [id number] [address] [place] [address] 24796 Eosinophils (%) (Auto) December 30, 2023 6:39am 1.9 % 0-4.4 [facility] [id number] [address] [place] [address] 16972 Eosinophils (%) (Auto) January 07, 2024 3:01am 7.1 % Above high normal 0-4.4 [facility] [id number] [address] [place] [address] 88798 Eosinophils (%) (Auto) January 07, 2024 9:40pm 4.9 % Above high normal 0-4.4 [facility] [id number] [address] [place] [address] 51728 Eosinophils (%) (Auto) February 08, 2024 4:46am 4.6 % Above high normal 0-4.4 [facility] [id number] [address] [place] [address] 85503 Eosinophils (%) (Auto) February 16, 2024 4:04am 4.0 % 0-4.4 [facility] [id number] [address] [place] [address] 10770 Eosinophils (%) (Auto) April 02, 2024 5:35am 10.6 % Above high normal 0-4.4 [facility] [id number] [address] [place] [address] 90849 Basophils (%) (Auto) December 05, 2023 2:14am 0.1 % Below low normal 0.2-1.2 [facility] [id number] [address] [place] [address] 55594 Basophils (%) (Auto) December 16, 2023 3:55am 0.4 % 0.2-1.2 [facility] [id number] [address] [place] [address] 82661 Basophils (%) (Auto) December 23, 2023 10:56am 0.4 % 0.2-1.2 [facility] [id number] [address] [place] [address] 39872 Basophils (%) (Auto) December 30, 2023 6:39am 0.1 % Below low normal 0.2-1.2 [facility] [id number] [address] [place] [address] 81426 Basophils (%) (Auto) January 07, 2024 3:01am 0.4 % 0.2-1.2 [facility] [id number] [address] [place] [address] 06706 Basophils (%) (Auto) January 07, 2024 9:40pm 0.5 % 0.2-1.2 [facility] [id number] [address] [place] [address] 08508 Basophils (%) (Auto) February 08, 2024 4:46am 0.4 % 0.2-1.2 [facility] [id number] [address] [place] [address] 89571 Basophils (%) (Auto) February 16, 2024 4:04am 0.3 % 0.2-1.2 [facility] [id number] [address] [place] [address] 90356 Basophils (%) (Auto) April 02, 2024 5:35am 0.6 % 0.2-1.2 [facility] [id number] [address] [place] [address] 91249 Nucleated RBC Absolute Count (auto) December 05, 2023 2:14am 0.000 K/mm3 0.0-0.012 [facility] [id number] [address] [place] [address] 81912 Nucleated RBC Absolute Count (auto) December 16, 2023 3:55am 0.000 K/mm3 0.0-0.012 [facility] [id number] [address] [place] [address] 78883 Nucleated RBC Absolute Count (auto) December 23, 2023 10:56am 0.000 K/mm3 0.0-0.012 [facility] [id number] [address] [place] [address] 10609 Nucleated RBC Absolute Count (auto) December 30, 2023 6:39am 0.000 K/mm3 0.0-0.012 [facility] [id number] [address] [place] [address] 87380 Nucleated RBC Absolute Count (auto) January 07, 2024 3:01am 0.000 K/mm3 0.0-0.012 [facility] [id number] [address] [place] [address] 70047 Nucleated RBC Absolute Count (auto) January 07, 2024 9:40pm 0.000 K/mm3 0.0-0.012 [facility] [id number] [address] [place] [address] 66608 Nucleated RBC Absolute Count (auto) February 08, 2024 4:46am 0.000 K/mm3 0.0-0.012 [facility] [id number] [address] [place] [address] 92245 Nucleated RBC Absolute Count (auto) February 16, 2024 4:04am 0.020 K/mm3 Above high normal 0.0-0.012 [facility] [id number] [address] [place] [address] 86534 Nucleated RBC Absolute Count (auto) April 02, 2024 5:35am 0.000 K/mm3 0.0-0.012 [facility] [id number] [address] [place] [address] 69613 Absolute Immature Granulocyte (auto December 05, 2023 2:14am 0.01 K/mm3 0.00-0.031 [facility] [id number] [address] [place], [place] [address] Absolute Immature Granulocyte (auto December 16, 2023 3:55am 0.02 K/mm3 0.00-0.031 [facility] [id number] 0 [facility] [address] [place] [address] 78847 Absolute Immature Granulocyte (auto December 23, 2023 10:56am 0.03 K/mm3 0.00-0.031 [facility] [id number] [address] 0[address]32 Absolute Immature Granulocyte (auto December 30, 2023 6:39am 0.04 K/mm3 Above high normal 0.00-0.031 [facility] [id number] [facility] [address] 32718 Absolute Immature Granulocyte (auto January 07, 2024 3:01am 0.01 K/mm3 0.00-0.031 [facility] [id number] [address] 85528 Absolute Immature Granulocyte (auto January 07, 2024 9:40pm 0.02 K/mm3 0.00-0.031 [facility] [id number] [facility] [address] 27126 Absolute Immature Granulocyte (auto February 08, 2024 4:46am 0.02 K/mm3 0.00-0.031 [facility] [id number] [facility] [address] 75093 Absolute Immature Granulocyte (auto February 16, 2024 4:04am 0.01 K/mm3 0.00-0.031 [facility] [id number] [facility] [address] 00657 Absolute Immature Granulocyte (auto April 02, 2024 5:35am 0.02 K/mm3 0.00-0.031 [facility] [id number] [facility] [address] 07211 Absolute Neutrophils (auto) December 05, 2023 2:14am 4.3 K/mm3 1.3-6.7 [facility] [id number] [address] 68942 Absolute Neutrophils (auto) December 16, 2023 3:55am 4.6 K/mm3 1.3-6.7 [facility] [id number] [facility] [address] 10440 Absolute Neutrophils (auto) December 23, 2023 10:56am 6.8 K/mm3 Above high normal 1.3-6.7 [facility] [id number] [address] [place] [address] 45478 Absolute Neutrophils (auto) December 30, 2023 6:39am 10.7 K/mm3 Above high normal 1.3-6.7 [facility] [id number] [address] [place] [address] 63738 Absolute Neutrophils (auto) January 07, 2024 3:01am 2.3 K/mm3 1.3-6.7 [facility] [id number] [address] [place] [address] 53739 Absolute Neutrophils (auto) January 07, 2024 9:40pm 3.2 K/mm3 1.3-6.7 [facility] [id number] [address] [place] [address] 34280 Absolute Neutrophils (auto) February 08, 2024 4:46am 4.4 K/mm3 1.3-6.7 [facility] [id number] [address] [place] [address] 43563 Absolute Neutrophils (auto) February 16, 2024 4:04am 3.4 K/mm3 1.3-6.7 [facility] [id number] [address] [place] [address] 34039 Absolute Neutrophils (auto) April 02, 2024 5:35am 3.0 K/mm3 1.3-6.7 [facility] [id number] [address] [place] [address] 75977 Lymphocytes # (Auto) December 05, 2023 2:14am 3.09 K/mm3 0.9-3.2 [facility] [id number] [address] [place] [address] 38576 Lymphocytes # (Auto) December 16, 2023 3:55am 1.83 K/mm3 0.9-3.2 [facility] [id number] [address] [place] [address] 19155 Lymphocytes # (Auto) December 23, 2023 10:56am 3.06 K/mm3 0.9-3.2 [facility] [id number] [address] [place] [address] 31847 Lymphocytes # (Auto) December 30, 2023 6:39am 2.83 K/mm3 0.9-3.2 [facility] [id number] [address] [place] [address] Lymphocytes # (Auto) January 07, 2024 3:01am 2.35 K/mm3 0.9-3.2 [facility] [id number] [facility] [address] [place] [address] 93767 Lymphocytes # (Auto) January 07, 2024 9:40pm 2.00 K/mm3 0.9-3.2 [facility] [id number] [address] [place] [address] 71894 Lymphocytes # (Auto) February 08, 2024 4:46am 2.43 K/mm3 0.9-3.2 [facility] [id number] [facility] [address] [place] [address] 99960 Lymphocytes # (Auto) February 16, 2024 4:04am 1.92 K/mm3 0.9-3.2 [facility] [id number] [facility] [address] [place] [address] 13562 Lymphocytes # (Auto) April 02, 2024 5:35am 2.45 K/mm3 0.9-3.2 [facility] [id number] [facility] [address] [place] [address] 26112 Monocytes # (Auto) December 05, 2023 2:14am 1.0 K/mm3 Above high normal 0.1-0.6 [facility] [id number] [facility] [address] [place] [address] 02922 Monocytes # (Auto) December 16, 2023 3:55am 1.3 K/mm3 Above high normal 0.1-0.6 [facility] [id number] [facility] [address] [place] [address] 82478 Monocytes # (Auto) December 23, 2023 10:56am 0.9 K/mm3 Above high normal 0.1-0.6 [facility] [id number] [facility] [address] [place] [address] 66681 Monocytes # (Auto) December 30, 2023 6:39am 1.0 K/mm3 Above high normal 0.1-0.6 [facility] [id number] [facility] [address] [place] [address] 86549 Monocytes # (Auto) January 07, 2024 3:01am 0.5 K/mm3 0.1-0.6 [facility] [id number] [facility] [address] [place] [address] 75150 Monocytes # (Auto) January 07, 2024 9:40pm 0.6 K/mm3 0.1-0.6 [facility] [id number] [facility] [address] [place] [address] Monocytes # (Auto) February 08, 2024 4:46am 0.5 K/mm3 0.1-0.6 [facility] [facility] [id number] [address] [place] [address] Monocytes # (Auto) February 16, 2024 4:04am 0.6 K/mm3 0.1-0.6 [facility] [id number] [address] [place] [address] Monocytes # (Auto) April 02, 2024 5:35am 0.6 K/mm3 0.1-0.6 [facility] [id number] [facility] [address] [place] [address] Eosinophils # (Auto) December 05, 2023 2:14am 0.4 K/mm3 Above high normal 0-0.3 [facility] [id number] [facility] [address] [place] [address] Eosinophils # (Auto) December 16, 2023 3:55am 0.4 K/mm3 Above high normal 0-0.3 [facility] [id number] [facility] [address] [place] [address] Eosinophils # (Auto) December 23, 2023 10:56am 0.5 K/mm3 Above high normal 0-0.3 [facility] [id number] [address] [place] [address] Eosinophils # (Auto) December 30, 2023 6:39am 0.3 K/mm3 0-0.3 [facility] [id number] [address] [place] [address] Eosinophils # (Auto) January 07, 2024 3:01am 0.4 K/mm3 Above high normal 0-0.3 [facility] [id number] [facility] [address] [place], [place] [id number] Eosinophils # (Auto) January 07, 2024 9:40pm 0.3 K/mm3 0-0.3 [facility] [id number] [address] [place] [address] Eosinophils # (Auto) February 08, 2024 4:46am 0.4 K/mm3 Above high normal 0-0.3 [facility] [id number] [facility] [address] [place] [address] Eosinophils # (Auto) February 16, 2024 4:04am 0.3 K/mm3 0-0.3 [facility] [id number] [address] [place] [address] Eosinophils # (Auto) April 02, 2024 5:35am 0.7 K/mm3 Above high normal 0-0.3 [facility] [id number] [address] [place] [address] 23728 Basophils # (Auto) December 05, 2023 2:14am 0.0 K/mm3 0.0-0.1 [facility] [id number] [address] [place] [address] 22240 Basophils # (Auto) December 16, 2023 3:55am 0.0 K/mm3 0.0-0.1 [facility] [id number] [address] [place] [address] 28246 Basophils # (Auto) December 23, 2023 10:56am 0.0 K/mm3 0.0-0.1 [facility] [id number] [address] [place] [address] 54678 Basophils # (Auto) December 30, 2023 6:39am 0.0 K/mm3 0.0-0.1 [facility] [id number] [address] [place] [address] 43880 Basophils # (Auto) January 07, 2024 3:01am 0.0 K/mm3 0.0-0.1 [facility] [id number] [address] [place] [address] 84124 Basophils # (Auto) January 07, 2024 9:40pm 0.0 K/mm3 0.0-0.1 [facility] [id number] [address] [place] [address] 37339 Basophils # (Auto) February 08, 2024 4:46am 0.0 K/mm3 0.0-0.1 [facility] [id number] [address] [place] [address] 98074 Basophils # (Auto) February 16, 2024 4:04am 0.0 K/mm3 0.0-0.1 [facility] [id number] [address] [place] [address] 68278 Basophils # (Auto) April 02, 2024 5:35am 0.0 K/mm3 0.0-0.1 [facility] [id number] [address] [place] [address] 71626 Platelet Estimate December 05, 2023 2:14am Slightly decreased Adequate [facility] [id number] [address] [facility] 14462 Platelet Estimate December 15, 2023 3:04am Decreased Adequate [facility] [id number] [address] [facility] 15765 Platelet Estimate February 15, 2024 8:18am Decreased Adequate [facility] [id number] [address] [facility] 0[address] Platelet Estimate April 02, 2024 5:35am Decreased Adequate [facility] [id number] [address] [facility] 05370 Clumped Platelets December 05, 2023 2:14am Present [facility] [id number] [address] [facility] 30626 Large Platelets December 05, 2023 2:14am Present [facility] [id number] [address] [facility] 85663 Large Platelets December 15, 2023 3:04am Present [facility] [id number] [address] [facility] 03118 Large Platelets April 02, 2024 5:35am Present [facility] [id number] [address] [facility] 76183 Giant Platelets December 05, 2023 2:14am Present [facility] [id number] [address] [facility] 66389 [place] Cells December 05, 2023 2:14am 1+ [facility] [id number] [address] [facility] 23178 [place] Cells December 15, 2023 3:04am 1+ [facility] [id number] [address] [facility] 13102 Schistocytes December 05, 2023 2:14am None seen [facility] [id number] [address] [facility] 56000 Schistocytes December 15, 2023 3:04am None seen [facility] [id number] [address] [facility] 78879 Schistocytes February 15, 2024 8:18am None seen [facility] [id number] [address] [facility] 24299 Schistocytes April 02, 2024 5:35am None seen [facility] [id number] [address] [facility] 89497 Atypical Lymphocytes December 05, 2023 2:14am Present [facility] [id number] [address] [facility] 23903 Prothrombin Time December 13, 2023 7:18am 13.5 s 11.1-14.7 [facility] [id number] [address] [place] [address] 67697 Prothrombin Time March 29, 2024 2:55pm 13.7 s 11.1-14.7 [facility] [id number] [address] [place] [address] 42022 Prothromb Time International Ratio December 13, 2023 7:18am 1.0 INR Indication----- ---- --------0.9 - 1.1 Patients not on anticoagulant therapy.2.0 - 3.0 Routine therapy.2.5 - 3.5 Recurrent myocardial infarction or mechanical prosthetic valves. [facility] [id number] [address] [place] [address] 92975 Prothromb Time International Ratio March 29, 2024 2:55pm 1.0 INR Indication----- ---- --------0.9 - 1.1 Patients not on anticoagulant therapy.2.0 - 3.0 Routine therapy.2.5 - 3.5 Recurrent myocardial infarction or mechanical prosthetic valves. [facility] [id number] [address] [place] [address] 61957 Activated Partial Thromboplast Time December 13, 2023 7:18am 33.8 s 22.3-36.8 [facility] [id number] [address] [place] [address] 82542 Activated Partial Thromboplast Time March 29, 2024 2:55pm 27.4 s 22.3-36.8 [facility] [id number] [address] [place] [address] 09387 Urine Color December 05, 2023 2:14am Yellow [facility] [id number] [address] [place] [address] 72359 Urine Color December 13, 2023 8:37am Yellow [facility] [id number] [address] [place] [address] 00922 Urine Color December 23, 2023 12:23pm Yellow [facility] [id number] [address] [place] [address] 83571 Urine Color February 10, 2024 5:33am Yellow Yellow [facility] [id number] [address] [place] [address] 13173 Urine Color March 29, 2024 3:58pm Yellow Yellow [facility] [id number] [address] [place] [address] 31701 Urine Appearance December 05, 2023 2:14am Clear Clear [facility] [id number] [address] [place] [address] 56250 Urine Appearance December 13, 2023 8:37am Clear Clear [facility] [id number] [address] [place] [address] 12850 Urine Appearance December 23, 2023 12:23pm Clear Clear [facility] [id number] 68[address] [facility] [address] [place] [address] 26196 Urine Appearance February 10, 2024 5:33am Clear Clear [facility] [id number] [address] [address] Urine Appearance March 29, 2024 3:58pm Cloudy Above high normal Clear [facility] [id number] [address] [place] [address] 88240 Urine pH December 05, 2023 2:14am 6.5 5.0-9.0 [facility] [id number] [address] [address] Urine pH December 13, 2023 8:37am 8.0 5.0-9.0 [facility] [id number] [address] [address] Urine pH December 23, 2023 12:23pm 8.0 5.0-9.0 [facility] [id number] [address] [place] [address] 70038 Urine pH February 10, 2024 5:33am 8.0 5.0-9.0 [facility] [id number] [address] [address] Urine pH March 29, 2024 3:58pm 8.5 5.0-9.0 [facility] [id number] [address] [address] Urine Specific [place] December 05, 2023 2:14am 1.016 1.001-1.03 5 [facility] [id number] [address] [address] Urine Specific [place] December 13, 2023 8:37am 1.009 1.001-1.[address] [place] [address] [facility] [id number] [address] [address] Urine Specific [place] December 23, 2023 12:23pm > 1.045 Above high normal 1.001-1.[address] [place] [address] [facility] [id number] [address] [address] Urine Specific [place] February 10, 2024 5:33am 1.006 1.001-1.[address] [place] [address] [facility] [id number] [address] [address] Urine Specific [place] March 29, 2024 3:58pm 1.017 1.001-1.[address] [place] [address] [facility] [id number] [address] [address] Urine Protein December 05, 2023 2:14am Negative mg/dL Negative [facility] [id number] [address] [address] Urine Protein December 13, 2023 8:37am Trace mg/dL Negative [facility] [id number] [address] 8[address] Urine Protein December 23, 2023 12:23pm 1+ mg/dL Above high normal Negative [facility] [id number] [address] [address] Urine Protein February 10, 2024 5:33am Negative mg/dL Negative [facility] [id number] [facility] [address] [address] Urine Protein March 29, 2024 3:58pm Trace mg/dL Negative [facility] [id number] [facility] [address] [address] Urine Glucose (UA) December 05, 2023 2:14am Negative mg/dL Negative [facility] [id number] [address] [address] Urine Glucose (UA) December 13, 2023 8:37am Negative mg/dL Negative [facility] [id number] [address] [address] Urine Glucose (UA) December 23, 2023 12:23pm Negative mg/dL Negative [facility] [id number] [address] [address] Urine Glucose (UA) February 10, 2024 5:33am Negative mg/dL Negative [facility] [id number] [address] [place] [address] 08902 Urine Glucose (UA) March 29, 2024 3:58pm Negative mg/dL Negative [facility] [id number] 6800 [facility] [address] [place] [address] 53213 Urine Ketones December 05, 2023 2:14am Trace mg/dL Above high normal Negative [facility] [id number] 68[address] [facility] [address] [place] [address] 46023 Urine Ketones December 13, 2023 8:37am Negative mg/dL Negative [facility] [id number] [address] [place] [address] 70283 Urine Ketones December 23, 2023 12:23pm Negative mg/dL Negative [facility] [id number] 6800 [facility] [address] [place] [address] 24739 Urine Ketones February 10, 2024 5:33am Negative mg/dL [facility] [id number] [address] [address] Urine Ketones March 29, 2024 3:58pm Negative mg/dL [facility] [id number] 68[address] [facility] [address] [place] [address] 40582 Urine Blood (Manual) December 05, 2023 2:14am Negative Negative [facility] [id number] [address] [place] [address] 34673 Urine Blood (Manual) December 13, 2023 8:37am 3+ Above high normal [facility] [id number] 68[address] [facility] [address] [place] [address] 23341 Urine Blood (Manual) December 23, 2023 12:23pm 3+ Above high normal Negative [facility] [id number] [address] [facility] [address] [place] [address] 88274 Urine Blood (Manual) February 10, 2024 5:33am Negative Negative [facility] [id number] [address] [facility] [address] [place] [address] 24957 Urine Blood (Manual) March 29, 2024 3:58pm 1+ Above high normal Negative [facility] [id number] 68[address] [facility] [address] [place] [address] 82622 Urine Nitrate December 05, 2023 2:14am Negative Negative [facility] [id number] [address] [place] [address] 47289 Urine Nitrate December 13, 2023 8:37am Negative Negative [facility] [id number] 68[address] [facility] [address] [place] [address] 31857 Urine Nitrate December 23, 2023 12:23pm Negative Negative [facility] [id number] [address] 25047 Urine Nitrate February 10, 2024 5:33am Negative Negative [facility] [id number] [address] [address]40 Urine Nitrate March 29, 2024 3:58pm Positive Above high normal Negative [facility] [id number] [address] [address]57 Urine Bilirubin December 05, 2023 2:14am Negative Negative [facility] [id number] [address] 00166 Urine Bilirubin December 13, 2023 8:37am Negative Negative [facility] [id number] [address] 76333 Urine Bilirubin December 23, 2023 12:23pm Negative Negative [facility] [id number] [address] [address] Urine Bilirubin February 10, 2024 5:33am Negative Negative [facility] [id number] [address] 89493 Urine Bilirubin March 29, 2024 3:58pm Negative Negative [facility] [id number] [address] [address] Urine Urobilinogen December 05, 2023 2:14am 1.0 mg/dL <2.0 [facility] [id number] [address] [address] Urine Urobilinogen December 13, 2023 8:37am 1.0 mg/dL <2.0 [facility] [id number] [address] [address] Urine Urobilinogen December 23, 2023 12:23pm 0.2 mg/dL <2.0 [facility] [id number] [address] [address]707 Urine Urobilinogen February 10, 2024 5:33am 1.0 mg/dL <2.0 [facility] [id number] [address] [address] Urine Urobilinogen March 29, 2024 3:58pm 1.0 mg/dL <2.0 [facility] [id number] [address] [address] Urine Leukocyte Esterase (Reflex) December 05, 2023 2:14am Trace NOEL/UL Above high normal Negative [facility] [id number] [facility] [address] [address] Urine Leukocyte Esterase (Reflex) December 13, 2023 8:37am 2+ NOEL/UL Above high normal Negative [facility] [id number] [facility] [address] [address] Urine Leukocyte Esterase (Reflex) December 23, 2023 12:23pm Negative NOEL/UL Negative [facility] [id number] [facility] [address] [address] Urine Leukocyte Esterase (Reflex) February 10, 2024 5:33am 3+ NOEL/UL Above high normal Negative [facility] [id number] [facility] [address] [address] Urine Leukocyte Esterase (Reflex) March 29, 2024 3:58pm 2+ NOEL/UL Above high normal Negative [facility] [id number] [facility] [address] [address] Urine RBC December 05, 2023 2:14am 0-2 [HPF] 0-2 [facility] [id number] [facility] [address] [address] Urine RBC December 13, 2023 8:37am 51-100 [HPF] Above high normal 0-2 [facility] [id number] [facility] [address] [address] Urine RBC December 23, 2023 12:23pm >100 [HPF] Above high normal 0-2 [facility] [id number] [facility] [address] [address]66 Urine RBC February 10, 2024 5:33am 0-2 [HPF] 0-2 [facility] [id number] [facility] [address] 287[address] Urine RBC March 29, 2024 3:58pm 21-50 [HPF] Above high normal 0-2 [facility] [id number] [facility] [address] [address] Urine WBC December 05, 2023 2:14am 0-5 [HPF] 0-3 [facility] [id number] [facility] [address] [address] Urine WBC December 13, 2023 8:37am 21-50 [HPF] Above high normal 0-3 [facility] [id number] [facility] [address] [address] Urine WBC December 23, 2023 12:23pm 21-50 [HPF] Above high normal 0-3 [facility] [id number] [address] [place] [address] 95444 Urine WBC February 10, 2024 5:33am 21-50 [HPF] Above high normal 0-3 [facility] [id number] [address] [place] [address] 01189 Urine WBC March 29, 2024 3:58pm 51-100 [HPF] Above high normal 0-3 [facility] [id number] [address] [place] [address] 21782 Urine Squamous Epithelial Cells December 05, 2023 2:14am None seen [HPF] [facility] [id number] [address] [place] [address] 46969 Urine Squamous Epithelial Cells December 13, 2023 8:37am Occasional [HPF] [facility] [id number] [address] [place] [address] 16087 Urine Squamous Epithelial Cells December 23, 2023 12:23pm None seen [HPF] [facility] [id number] [address] [address] Urine Squamous Epithelial Cells February 10, 2024 5:33am None seen [HPF] [facility] [id number] [address] [place] [address] 62696 Urine Squamous Epithelial Cells March 29, 2024 3:58pm None seen [HPF] [facility] [id number] [address] [address] Urine Amorphous Sediment March 29, 2024 3:58pm Few Above high normal None [facility] [id number] [address] [address] Urine Bacteria December 05, 2023 2:14am None seen [HPF] [facility] [id number] [address] [place] [address] 66134 Urine Bacteria December 13, 2023 8:37am None seen [HPF] [facility] [id number] [address] [address] Urine Bacteria December 23, 2023 12:23pm None seen [HPF] [facility] [id number] [address] [place] [address] 58640 Urine Bacteria February 10, 2024 5:33am 4+ [HPF] Above high normal [facility] [id number] [address] [place] [address] 40745 Urine Bacteria October 31st, 2024 3:58pm 4+ [HPF] Above high normal [facility] [id number] [address] [place] [address] Urine Hyaline Casts March 29, 2024 3:58pm Present [LPF] None [facility] [id number] [address] [place] [address] Urine Random Total Protein December 16, 2023 1:06pm 18 mg/dL The reference range and other method performancespec ifications have not been established for this test. Thetest result should be integrated into the clinical context for interpretation. [facility] [id number] [address] [place] [address] Urine Random Sodium December 16, 2023 1:06pm 128 meq/L The reference range and other method performancespec ifications have not been established for this test. Thetest result should be integrated into the clinical context for interpretation. [facility] [id number] [address] [place] [address] Urine Creatinine December 16, 2023 1:06pm 17.9 mg/dL [facility] [id number] [address] [place] [address] Urine Protein/Creat inine Ratio 2 December 16, 2023 1:06pm 1.01 mg/mg Above high normal 0-0.20 [facility] [id number] [address] [place] [address] Urine Pneumococcal Antigen December 13, 2023 1:15pm Not detected REFERENCE RANGE: NOT DETECTEDTHIS TEST WAS PERFORMED AT:[employer] [id number] [place], [place] [address] [address]IRXKGNICOLÁS WATTERS MD,PHD ,PR[facility] Urine Pneumococcal Antigen January 02, 2024 4:01pm Not detected REFERENCE RANGE: NOT DETECTEDTHIS TEST WAS PERFORMED AT:[employer] [id number] [place] [id number] WATTERS MD,PHD ,PRACHI [facility] Urine Legionella pneumophilia Ag December 13, 2023 1:15pm Not detected REFERENCE RANGE: NOT DETECTEDLegione lla pneumophila is responsible for 80-85%of reported cases of Legionella infections in [facility], and most of these cases are causedby L. pneumophila serogroup 1. Detection ofL. pneumophila serogroup 1 soluble antigen inurine is a highly sensitive and specific methodfor the laboratory diagnosis of infection inthese cases. L. pneumophila serogroup 1 urinaryantigen levels typically peak 6-14 days afterinfection. Elevated antigen levels may persistfor several months, depending on the patient'streatm ent regimen and any underlying illness.A negative result does not rule out infection byother L. pneumophila serogroups or otherLegionella species. Other laboratory tools usefulin the diagnosis of Legionella infection includeculture of respiratory specimens, directdetection of Legionella by DFA or genetic probes,and Legionella antibody detection by IFA.THIS TEST WAS PERFORMED AT:[employer]/[facility] [id number] [place] [address]HCHKCNICOLÁS WATTERS MD,PHD ,PRACHI [facility] Sodium Level December 05, 2023 2:35am 139 mmol/L 137-145 [facility] [id number] [address] [address] Sodium Level December 18, 2023 6:22am 145 mmol/L 137-145 [facility] [id number] [address] [address] Sodium Level December 23, 2023 10:56am 144 mmol/L 137-145 [facility] [id number] [address] [address] Sodium Level December 30, 2023 6:39am 138 mmol/L 137145 [facility] [id number] [address] [address] Sodium Level January 07, 2024 3:01am 141 mmol/L 137-145 [facility] [id number] [address] [address] Sodium Level January 07, 2024 9:43pm 142 mmol/L 137-145 [facility] [id number] [address] [address] Sodium Level February 08, 2024 4:46am 137 mmol/L 137-145 [facility] [id number] [address] [address] Sodium Level February 16, 2024 4:04am 137 mmol/L 137-145 [facility] [id number] [address] [address] Sodium Level April 02, 2024 5:35am 140 mmol/L 137-145 [facility] [id number] [facility] [address] [place] [address] Potassium Level December 05, 2023 2:35am 4.0 mmol/L 3.4-5.0 [facility] [id number] [address] [place] [address]16 Potassium Level December 18, 2023 6:22am 4.2 mmol/L 3.4-5.0 [facility] [facility] [id number] [address] [place] [address] 95748 Potassium Level December 23, 2023 10:56am 4.2 mmol/L 3.4-5.0 [facility] [id number] [address] [place] [address] 80090 Potassium Level December 30, 2023 6:39am 4.3 mmol/L 3.4-5.0 [facility] [id number] [address] [place] [address] 67744 Potassium Level January 07, 2024 3:01am 4.0 mmol/L 3.4-5.0 [facility] [id number] [address] [place] [address] 03815 Potassium Level January 07, 2024 9:43pm 4.0 mmol/L 3.4-5.0 [facility] [id number] [address] [place] [address] 04656 Potassium Level February 08, 2024 4:46am 4.8 mmol/L 3.4-5.0 [facility] [id number] [address] [place] [address] 57103 Potassium Level February 16, 2024 4:04am 3.8 mmol/L 3.4-5.0 [facility] [id number] [address] [place] [address] 80673 Potassium Level April 02, 2024 5:35am 3.8 mmol/L 3.4-5.0 [facility] [id number] [address] [place] [address] 20915 Chloride Level December 05, 2023 2:35am 103 mmol/L 98-107 [facility] [id number] [address] [address] Chloride Level December 18, 2023 6:22am 111 mmol/L Above high normal [facility]107 [facility] [id number] [address] [place] [address] 68370 Chloride Level December 23, 2023 10:56am 107 mmol/L 98107 [facility] [id number] [address] [facility] [address] Chloride Level December 30, 2023 6:39am 99 mmol/L 98-107 [facility] [id number] [address] [facility] 72906 Chloride Level January 07, 2024 3:01am 109 mmol/L Above high normal 98107 [facility] [id number] [address] [facility] 66600 Chloride Level January 07, 2024 9:43pm 106 mmol/L 98107 [facility] [id number] [address] [facility] 84814 Chloride Level February 08, 2024 4:46am 102 mmol/L 98107 [facility] [id number] [address] [place] [address] 00348 Chloride Level February 16, 2024 4:04am 100 mmol/L [address] [facility] [id number] [address] [place] [address] 71164 Chloride Level April 02, 2024 5:35am 109 mmol/L Above high normal [address] [facility] [id number] [address] [place] [address] 51562 Carbon Dioxide Level December 05, 2023 2:35am 24 mmol/L 22-30 [facility] [id number] [address] [place] [address] 64097 Carbon Dioxide Level December 18, 2023 6:22am 24 mmol/L 22-30 [facility] [id number] [address] [place] [address] 20809 Carbon Dioxide Level December 23, 2023 10:56am 28 mmol/L 22-30 [facility] [id number] [address] [place] [address] 36702 Carbon Dioxide Level December 30, 2023 6:39am 32 mmol/L Above high normal 22-30 [facility] [id number] [address] [place] [address] 90256 Carbon Dioxide Level January 07, 2024 3:01am 26 mmol/L 22-30 [facility] [id number] [address] [place] [address] 57508 Carbon Dioxide Level January 07, 2024 9:43pm 28 mmol/L 22-30 [facility] [id number] [address] [place] [address] 16825 Carbon Dioxide Level February 08, 2024 4:46am 26 mmol/L 22-30 [facility] [id number] [address] [place] [address] 98480 Carbon Dioxide Level February 16, 2024 4:04am 30 mmol/L [facility] [id number] [address] [place] [address] 73308 Carbon Dioxide Level April 02, 2024 5:35am 26 mmol/L [facility] [id number] [address] [place] [address] 99185 Anion Gap December 05, 2023 2:35am 12 mmol/L [address] [place] [address] Laboratory [id number] [address] [facility] 80[address] Anion [place] December 18, 2023 6:22am 10 mmol/L [address] [facility] [id number] [address] [place] [address] 54158 Anion Gap December 23, 2023 10:56am 9 mmol/L [address] [place] [address] Laboratory [id number] [address] [place] [address] 75567 Anion [place] December 30, 2023 6:39am 7 mmol/L [address] [place] [address] Laboratory [id number] [address] [place] [address] 12193 Anion [place] January 07, 2024 3:01am 6 mmol/L [address] [place] [address] Laboratory [id number] [address] [place] [address] 40719 Anion [place] January 07, 2024 9:43pm 8 mmol/L [address] [place] [address] Laboratory [id number] [address] [place] [address] 94333 Anion [place] February 08, 2024 4:46am 9 mmol/L [address] [place] [address] Laboratory [id number] [address] [place] [address] 72244 Anion [place] February 16, 2024 4:04am 7 mmol/L [address] [place] [address] Laboratory [id number] [address] [place] [address] 18415 Anion Gap April 02, 2024 5:35am 5 mmol/L [address] [place] [address] Laboratory [id number] [address] [place] [address] 39884 Blood Urea Nitrogen December 05, 2023 2:35am 14 mg/dL 02-16 [facility] [id number] [address] [place] [address] 90231 Blood Urea Nitrogen December 18, 2023 6:22am 16 mg/dL 02-16 [facility] [id number] [address] [place] [address] 80419 Blood Urea Nitrogen December 23, 2023 10:56am 24 mg/dL Above high normal 02-16 [facility] [id number] [address] [address] Blood Urea Nitrogen December 30, 2023 6:39am 17 mg/dL 02-16 [facility] [id number] [address] [address] Blood Urea Nitrogen January 07, 2024 3:01am 11 mg/dL 02-16 [facility] [id number] [address] [address] Blood Urea Nitrogen January 07, 2024 9:43pm 11 mg/dL 02-16 [facility] [id number] [address] [address] Blood Urea Nitrogen February 08, 2024 4:46am 13 mg/dL 02-16 [facility] [id number] [address] [address] Blood Urea Nitrogen February 16, 2024 4:04am 13 mg/dL 02-16 [facility] [id number] [facility] [address] [address] Blood Urea Nitrogen April 02, 2024 5:35am 8 mg/dL Below low normal 02-16 [facility] [id number] [address] [address] Creatinine December 05, 2023 2:35am 0.60 mg/dL Below low normal 0.7-1.3 [facility] [id number] [address] [address] Creatinine December 18, 2023 6:22am 1.20 mg/dL 0.7-1.3 [facility] [id number] [address] 8[address] Creatinine December 23, 2023 10:56am 0.80 mg/dL 0.7-1.3 [facility] [id number] [address] 8[address] Creatinine December 30, 2023 6:39am 0.80 mg/dL 0.7-1.3 [facility] [id number] [address] [address] Creatinine January 07, 2024 3:01am 0.50 mg/dL Below low normal 0.7-1.3 [facility] [id number] [address] [address] Creatinine January 07, 2024 9:43pm 0.50 mg/dL Below low normal 0.7-1.3 [facility] [id number] [address] [place] [address] 96683 Creatinine February 08, 2024 4:46am 0.60 mg/dL Below low normal 0.7-1.3 [facility] [id number] [address] [place] [address] 84812 Creatinine February 16, 2024 4:04am 0.60 mg/dL Below low normal 0.7-1.3 [facility] [id number] [address] [place] [address] 67810 Creatinine April 02, 2024 5:35am 0.40 mg/dL Below low normal 0.7-1.3 [facility] [id number] [address] [place] [address] 94282 Estimat Glomerular Filtration Rate December 05, 2023 2:35am > 60 >59 > OR = 60 ml/min/1.73 square metersThe MDRD formula used to calculate the eGFR result has not been validated in patients > 70 years of age. [facility] [id number] [address] [place] [address] 26550 Estimat Glomerular Filtration Rate December 18, 2023 6:22am > 60 >59 > OR = 60 ml/min/1.73 square metersThe MDRD formula used to calculate the eGFR result has not been validated in patients > 70 years of age. [facility] [id number] [address] [place] [address] 37789 Estimat Glomerular Filtration Rate December 23, 2023 10:56am > 60 >59 > OR = 60 ml/min/1.73 square metersThe MDRD formula used to calculate the eGFR result has not been validated in patients > 70 years of age. [facility] [id number] [address] [place] [address] 41052 Estimat Glomerular Filtration Rate December 30, 2023 6:39am > 60 >59 > OR = 60 ml/min/1.73 square metersThe MDRD formula used to calculate the eGFR result has not been validated in patients > 70 years of age. [facility] [id number] [address] [place] [address] 43678 Estimat Glomerular Filtration Rate January 07, 2024 3:01am > 60 >59 > OR = 60 ml/min/1.73 square metersThe MDRD formula used to calculate the eGFR result has not been validated in patients > 70 years of age. [facility] [id number] [address] [place] [address] 87949 Estimat Glomerular Filtration Rate January 07, 2024 9:43pm > 60 >59 > OR = 60 ml/min/1.73 square metersThe MDRD formula used to calculate the eGFR result has not been validated in patients > 70 years of age. [facility] [id number] [address] [place], [place] [address] Estimat Glomerular Filtration Rate February 08, 2024 4:46am > 60 >59 > OR = 60 ml/min/1.73 square metersThe MDRD formula used to calculate the eGFR result has not been validated in patients > 70 years of age. [facility] [id number] [address] [place] [address] 98475 Estimat Glomerular Filtration Rate February 16, 2024 4:04am > 60 >59 > OR = 60 ml/min/1.73 square metersThe MDRD formula used to calculate the eGFR result has not been validated in patients > 70 years of age. [facility] [id number] [address] [place] [address] 46108 Estimat Glomerular Filtration Rate April 02, 2024 5:35am > 60 >59 > OR = 60 ml/min/1.73 square metersThe MDRD formula used to calculate the eGFR result has not been validated in patients > 70 years of age. [facility] [id number] [address] [place] [address] 61472 Estimated Creatinine Clearance Calc December 05, 2023 2:35am 107 mL/min For use in prescription drug dose determination only. Reference ranges have not been establishe for this calculation. [facility] [id number] [address] [place] [address] 13342 Estimated Creatinine Clearance Calc December 18, 2023 6:22am 61 mL/min For use in prescription drug dose determination only. Reference ranges have not been establishe for this calculation. [facility] [id number] [address] [place] [address] 47278 Estimated Creatinine Clearance Calc December 23, 2023 10:56am 87 mL/min For use in prescription drug dose determination only. Reference ranges have not been establishe for this calculation. [facility] [id number] [address] [place] [address] 11524 Estimated Creatinine Clearance Calc December 30, 2023 6:39am 79 mL/min For use in prescription drug dose determination only. Reference ranges have not been establishe for this calculation. [facility] [id number] [address] [place] [address] 12850 Estimated Creatinine Clearance Calc January 07, 2024 3:01am 128 mL/min For use in prescription drug dose determination only. Reference ranges have not been establishe for this calculation. [facility] [id number] [address] [place] [address] 24277 Estimated Creatinine Clearance Calc January 07, 2024 9:43pm Not Reportable [facility] [id number] [address] [place] [address] 80837 Estimated Creatinine Clearance Calc February 08, 2024 4:46am Not Reportable [facility] [id number] [address] [place] [address] 04849 Estimated Creatinine Clearance Calc February 16, 2024 4:04am 111 mL/min For use in prescription drug dose determination only. Reference ranges have not been establishe for this calculation. [facility] [id number] [address] [place] [address] 65790 Estimated Creatinine Clearance Calc April 02, 2024 5:35am 158 mL/min For use in prescription drug dose determination only. Reference ranges have not been establishe for this calculation. [facility] [id number] [address] [place] [address] 02716 Glucose Level December 05, 2023 2:35am 86 mg/dL 65-110 [facility] [id number] [address] [place] [address] 75945 Glucose Level December 18, 2023 6:22am 116 mg/dL Above high normal 65-110 [facility] [id number] [address] [place] [address] 36510 Glucose Level December 23, 2023 10:56am 104 mg/dL 65-110 [facility] [id number] [address] [place] [address] 45278 Glucose Level December 30, 2023 6:39am 101 mg/dL 65-110 [facility] [id number] [address] [place] [address] 53488 Glucose Level January 07, 2024 3:01am 87 mg/dL 65-110 [facility] [id number] [address] [place] [address] 27394 Glucose Level January 07, 2024 9:43pm 107 mg/dL 65-110 [facility] [id number] [facility] [address] [address] Glucose Level February 08, 2024 4:46am 95 mg/dL 65-110 [facility] [id number] [address] [address]379 Glucose Level February 16, 2024 4:04am 125 mg/dL Above high normal 65-110 [facility] [id number] [address] 06137 Glucose Level April 02, 2024 5:35am 113 mg/dL Above high normal 65-110 [facility] [id number] [address] [address] POC Capillary Glucose December 18, 2023 10:31am 130 mg/dL Above high normal 65-105 [facility] POC Capillary Glucose January 02, 2024 2:40pm 153 mg/dL Above high normal 65-105 [facility] POC Capillary Glucose March 30, 2024 7:10pm 131 mg/dL Above high normal 65-105 [facility]OC Lactic Acid Level December 13, 2023 10:49am 2.3 mmol/L Above high normal 0.7-2.0 [facility] [id number] [address] [address] Lactic Acid Level December 05, 2023 2:35am 1.2 mmol/L 0.7-2.0 [facility] [id number] [address] [address] Lactic Acid Level January 03, 2024 9:02pm 1.7 mmol/L 0.7-2.0 [facility] [id number] [address] 9[address]29 Lactic Acid Level March 29, 2024 4:19pm 1.4 mmol/L 0.7-2.0 [facility] [id number] [facility] [address] 87932 Calcium Level December 05, 2023 2:35am 9.8 mg/dL 8.4-10.2 [facility] [id number] [facility] [address] 6[address] Calcium Level December 18, 2023 6:22am 8.9 mg/dL 8.4-10.2 [facility] [id number] [facility] [address] 96846 Calcium Level December 23, 2023 10:56am 9.2 mg/dL 8.4-10.2 [facility] [id number] [address] [place] [address] 90607 Calcium Level December 30, 2023 6:39am 9.5 mg/dL 8.4-10.2 [facility] [id number] [facility] [address] 24335 Calcium Level January 07, 2024 3:01am 8.7 mg/dL 8.4-10.2 [facility] [id number] [address] [place] [address] 65676 Calcium Level January 07, 2024 9:43pm 9.0 mg/dL 8.4-10.2 [facility] [id number] [address] [place] [address] 15009 Calcium Level February 08, 2024 4:46am 9.5 mg/dL 8.4-10.2 [facility] [id number] [address] [place] [address] 70696 Calcium Level February 16, 2024 4:04am 8.9 mg/dL 8.4-10.2 [facility] [id number] [address] [place] [address] 97490 Calcium Level April 02, 2024 5:35am 8.7 mg/dL 8.4-10.2 [facility] [id number] [address] [place] [address] 77854 Phosphorus Level December 13, 2023 7:18am 3.7 mg/dL 2.5-4.5 [facility] [id number] [address] [place] [address] 71336 Magnesium Level December 18, 2023 6:22am 2.0 mg/dL 1.6-2.3 [facility] [id number] [address] [place] [address] 36009 Magnesium Level February 08, 2024 4:46am 2.0 mg/dL 1.6-2.3 [facility] [id number] [address] [place] [address] 77727 Magnesium Level April 02, 2024 5:35am 1.7 mg/dL 1.6-2.3 [facility] [id number] [address] [place] [address] 93701 Total Bilirubin December 05, 2023 2:35am 0.8 mg/dL 0.2-1.3 [facility] [id number] [address] [place] [address] 58329 Total Bilirubin December 15, 2023 3:04am 0.5 mg/dL 0.2-1.3 [facility] [id number] [address] 28708 Total Bilirubin December 23, 2023 10:56am 0.3 mg/dL 0.2-1.3 [facility] [id number] [address] [place] [address] 89317 Total Bilirubin December 30, 2023 6:39am 0.6 mg/dL 0.2-1.3 [facility] [id number] [address] [place] [address] 58244 Total Bilirubin January 07, 2024 3:01am 0.2 mg/dL 0.2-1.3 [facility] [id number] [address] [place] [address] 72410 Total Bilirubin January 07, 2024 9:43pm 0.2 mg/dL 0.2-1.3 [facility] [id number] [address] [place] [address] 91963 Total Bilirubin February 16, 2024 4:04am 0.2 mg/dL 0.2-1.3 [facility] [id number] [address] [place] [address] 85007 Total Bilirubin April 02, 2024 5:35am 0.3 mg/dL 0.2-1.3 [facility] [id number] [address] [place] [address] 23452 Aspartate Amino Transf (AST/SGOT) December 05, 2023 2:35am 27 U/L 17-59 [facility] [id number] [address] [place] [address] 43916 Aspartate Amino Transf (AST/SGOT) December 15, 2023 3:04am 53 U/L -59 [facility] [id number] [address] [place] [address] 32717 Aspartate Amino Transf (AST/SGOT) December 23, 2023 10:56am 32 U/L 17-59 [facility] [id number] [address] [place] [address] 59105 Aspartate Amino Transf (AST/SGOT) December 30, 2023 6:39am 26 U/L 17-59 [facility] [id number] [address] [place] [address] 86823 Aspartate Amino Transf (AST/SGOT) January 07, 2024 3:01am 18 U/L 17-59 [facility] [id number] [address] 814[address] Aspartate Amino Transf (AST/SGOT) January 07, 2024 9:43pm 18 U/L 17-59 [facility] [id number] [address] 74536 Aspartate Amino Transf (AST/SGOT) February 16, 2024 4:04am 28 U/L 17-59 [facility] [id number] [address] 85660 Aspartate Amino Transf (AST/SGOT) April 02, 2024 5:35am 32 U/L 17-59 [facility] [id number] [address] [address] Alanine Aminotransfer ase (ALT/SGPT) December 05, 2023 2:35am 15 U/L [address] [facility] [id number] [facility] [address] [address] Alanine Aminotransfer ase (ALT/SGPT) December 15, 2023 3:04am 51 U/L Above high normal [address] [place] [address] Laboratory [id number] [facility] [address] [address] Alanine Aminotransfer ase (ALT/SGPT) December 23, 2023 10:56am 24 U/L [address] [place] [address] Laboratory [id number] [facility] [address] [address] Alanine Aminotransfer ase (ALT/SGPT) December 30, 2023 6:39am 17 U/L [address] [place] [address] Laboratory [id number] [facility] [address] [address] Alanine Aminotransfer ase (ALT/SGPT) January 07, 2024 3:01am 12 U/L 650 [facility] [id number] [address] [address] Alanine Aminotransfer ase (ALT/SGPT) January 07, 2024 9:43pm 12 U/L [address] [facility] [id number] [facility] [address] [address] Alanine Aminotransfer ase (ALT/SGPT) February 16, 2024 4:04am 15 U/L [address] Laboratory [id number] [address] [address] Alanine Aminotransfer ase (ALT/SGPT) April 02, 2024 5:35am 17 U/L 6-50 [facility] [id number] [address] [place] [address] 50064 Total Creatine Kinase December 16, 2023 3:51am 191 U/L Above high normal 55-170 [facility] [id number] [address] [place] [address] 28477 Troponin I December 13, 2023 9:48am < 0.012 ng/mL 0.000-0.03 4 Acute myocardial injury is indicated by:1. A troponin value of >0.034 ng/mL and/or2. A 20% change in troponin value.Specimens with biotin concentrations up to 2.5 ng/mL demonstrate a less than or equal to 10% change in results. Biotin concentrations greater than this falsely decrease Troponin results for patient samples. [facility] [id number] [address] [place] [address] 44993 Troponin I January 02, 2024 3:29pm < 0.012 ng/mL 0.000-0.03 4 Acute myocardial injury is indicated by:1. A troponin value of >0.034 ng/mL and/or2. A 20% change in troponin value.Specimens with biotin concentrations up to 2.5 ng/mL demonstrate a less than or equal to 10% change in results. Biotin concentrations greater than this falsely decrease Troponin results for patient samples. [facility] [id number] [address] [place] [address] 54087 SN-Iws-K-Type Natriuretic Peptide December 13, 2023 7:18am 499 pg/mL Above high normal 19.9-100 Reference Range:Normal, Heart Failure unlikely: </= 300 pg/mlHigh Probablility of Heart Failure: <50 Years >/= 450 pg/ml 50-75 Years >/= 900 pg/ml >75 Years >/= 1800 pg/ml [facility] [id number] [address] [place] [address] 48754 Total Protein December 05, 2023 2:35am 8.0 g/dL 6.3-8.2 [facility] [id number] [address] [place] [address] 72766 Total Protein December 15, 2023 3:04am 6.0 g/dL Below low normal 6.3-8.2 [facility] [id number] [address] [place] [address] 24694 Total Protein December 23, 2023 10:56am 8.0 g/dL 6.3-8.2 [facility] [id number] [address] [address] Total Protein December 30, 2023 6:39am 8.0 g/dL 6.3-8.2 [facility] [id number] [address] [address]28[address] Total Protein January 07, 2024 3:01am 6.0 g/dL Below low normal 6.3-8.2 [facility] [id number] [address] [address] Total Protein January 07, 2024 9:43pm 6.9 g/dL 6.3-8.2 [facility] [id number] [address] [address] Total Protein February 16, 2024 4:04am 7.0 g/dL 6.3-8.2 [facility] [id number] [address] [address]23 Total Protein April 02, 2024 5:35am 7.0 g/dL 6.3-8.2 [facility] [id number] [address] [address] Albumin December 05, 2023 2:35am 4.2 g/dL 3.5-5.1 [facility] [id number] [address] [address] Albumin December 15, 2023 3:04am 2.8 g/dL Below low normal 3.5-5.1 [facility] [id number] [address] [address] Albumin December 23, 2023 10:56am 4.0 g/dL 3.5-5.1 [facility] [id number] [address] [address] Albumin December 30, 2023 6:39am 4.0 g/dL 3.5-5.1 [facility] [id number] [address] [address] Albumin January 07, 2024 3:01am 2.9 g/dL Below low normal 3.5-5.1 [facility] [id number] [address] [address] Albumin January 07, 2024 9:43pm 3.3 g/dL Below low normal 3.5-5.1 [facility] [id number] [address] [address] Albumin February 16, 2024 4:04am 3.1 g/dL Below low normal 3.5-5.1 [facility] [id number] [address] [address] Albumin April 02, 2024 5:35am 3.0 g/dL Below low normal 3.5-5.1 [facility] [id number] [address] [address] Alkaline Phosphatase December 05, 2023 2:35am 109 U/L 38-126 [facility] [id number] [address] [address] Alkaline Phosphatase December 15, 2023 3:04am 84 U/L 38-126 [facility] [id number] [facility] [address] [address] Alkaline Phosphatase December 23, 2023 10:56am 107 U/L 38-126 [facility] [id number] [facility] [address] [address] Alkaline Phosphatase December 30, 2023 6:39am 115 U/L 38-126 [facility] [id number] [facility] [address] [address] Alkaline Phosphatase January 07, 2024 3:01am 71 U/L 38-126 [facility] [id number] [address] [address] Alkaline Phosphatase January 07, 2024 9:43pm 83 U/L 38-126 [facility] [id number] [facility] [address] [address] Alkaline Phosphatase February 16, 2024 4:04am 74 U/L 38-126 [facility] [id number] [facility] [address] [address] Alkaline Phosphatase April 02, 2024 5:35am 81 U/L 38-126 [facility] [id number] [facility] [address] [address] Lipase December 05, 2023 2:35am 59 U/L 23-300 [facility] [id number] [address] [address] Lipase December 13, 2023 7:18am 67 U/L 23-300 [facility] [id number] [facility] [address] [address] Lipase December 23, 2023 10:56am 87 U/L 23-300 [facility] [id number] [address] [address] Lipase December 30, 2023 6:39am 62 U/L 23-300 [facility] [id number] [address] [place] [address] Lipase January 07, 2024 9:43pm 78 U/L 23-300 [facility] [id number] [address] [place] [address] Thyroid Stimulating Hormone (Reflex December 13, 2023 7:18am 3.120 [iU]/mL 0.465-4.68 [facility] [id number] [address] [place] [address] Procalcitonin December 16, 2023 3:55am 0.1 ng/mL Interpretation Guidelines<0.50 0 ng/mL Low risk for sepsis; local bacterial infection possible.0.500- 2.00 ng/mL Sepsis is possible; other conditions possible.>2.00 ng/mL Highly suggestive of systemic bacterial infection/sepsi s or severe localized bacterial infection.Proca lcitonin levels should be evaluated in context of all laboratory findings and the total clinical status of the patient. [facility] [id number] [address] [place] [address] Procalcitonin February 16, 2024 3:58am 0.1 ng/mL Interpretation Guidelines<0.50 0 ng/mL Low risk for sepsis; local bacterial infection possible.0.500- 2.00 ng/mL Sepsis is possible; other conditions possible.>2.00 ng/mL Highly suggestive of systemic bacterial infection/sepsi s or severe localized bacterial infection.Proca lcitonin levels should be evaluated in context of all laboratory findings and the total clinical status of the patient. [facility] [id number] [address] [place] [address] SARS-CoV-2 RNA (RT-PCR) December 18, 2023 9:03am Negative Negative This assay is designed to detect the RdRp and N genes of SARS-CoV-2 using nucleic acid amplification. A negative result does not preclude the possibility of 2019-nCoV infection since the adequacy of sample collection and/or low viral burden may result in the presence of viral nucleic acids levels below the analytical sensitivity of this test method. Positive results are indicative of the presence of SARS-CoV-2 RNA and do not rule out bacterial infection or co-infection with other viruses. Test results should be used along with other clinical observations, patient history, epidemiological information and laboratory data in making the diagnosis.This test has received FDA Emergency Use Authorization and has been verified by [facility]. This test is only authorized for the duration of the declaration and the circumstances that exist to justify the authorization of the emergency use of in vitro diagnostic tests for the detection of SARS-CoV-2 virus and/or diagnosis of COVID-19 infection under section 564(b)(1) of the Act. 11 U.S.C. 360bbb-3(b)(1), unless the authorization is terminated or revoked sooner.[facility] is certified under CLIA-88 as qualified to perform high complexity testing. This testing was performed in the [facility] [place] [address] (CLIA License #[id number], CAP #[id number], AU-ID # [id number]).Factsh eet for healthcare providers: https://www.fda .gov/media/7328 56/downloadFact sheet for patients: https://www.fda .gov/media/4651 57/download [facility] [id number] [address] [address] Influenza Type B (RT-PCR) December 13, 2023 7:43am Negative Negative The test is performed on the [employer] GeneXpert Dx System and utilized automated real-time polymerase chain reaction (PCR) to detect presence of the Influenza A and/or Influenza B virus. Positive results are indicative of the presence of the identified virus but cannot rule out bacterial infection or co-infection with other pathogens not detected by the test. Negative should not be used as the sole basis for treatment or other patient management decisions. Negative results must be combined with clinical observations, patient history, and/or epidemiological information. [facility] [id number] [address] [address] Influenza Type A (RT-PCR) December 13, 2023 7:43am Negative Negative The test is performed on the [employer] GeneXpert Dx System and utilized automated real-time polymerase chain reaction (PCR) to detect presence of the Influenza A and/or Influenza B virus. Positive results are indicative of the presence of the identified virus but cannot rule out bacterial infection or co-infection with other pathogens not detected by the test. Negative should not be used as the sole basis for treatment or other patient management decisions. Negative results must be combined with clinical observations, patient history, and/or epidemiological information. [facility] [id number] [address] [place] [address] Clostridium difficile (PCR)(LAB) December 05, 2023 2:14am Negative NEGATIVE The test is performed on the [employer] Dx System and utilized automated real-time polymerase chain reaction (PCR) to detect toxin gene sequences associated with toxin producing C. difficile. The assay is intended as an aid in the diagnosis of C. difficile infection. [facility] [id number] [address] [place] [address] Mycoplasma pneumoniae IgM Antibody December 13, 2023 7:18am 251 U/mL REFERENCE RANGE: <770 U/mLInterpretiv e criteria: <770 U/mL Negative 770-950 U/mL Low positive >950 U/mL PositiveA positive IgM antibody result is consistentwith recent infection. However, a negativeresult does not necessarily rule out recentinfection as some individuals may not mountanother IgM response, if previously infected.THIS TEST WAS PERFORMED AT:[employer] [id number] [facility] [place] [address]UJZLGNICOLÁS WATTERS MD,PHD ,PRACHI [facility] Respiratory Syncytial Virus (RT-PCR December 13, 2023 7:43am Negative Negative The test is performed on the [employer] Dx System and utilized automated real-time polymerase chain reaction (PCR) to detect presence of the RSV virus. Positive results are indicative of the presence of the identified virus but cannot rule out bacterial infection or co-infection with other pathogens not detected by the test. Negative results should not be used as the sole basis for treatment or other patient management decisions. Negative results must be combined with clinical observations, patient history, and/or epidemiological information. [facility] [id number] [address] [place] [address] Mycoplasma pneumoniae IgG Antibody January 02, 2024 9:03am 2.84 Above high normal REFERENCE RANGE: <=0.90Interpret phan criteria: <=0.90 Negative 0.91-1.09 Equivocal >=1.10 PositiveA positive IgG antibody result indicatesthat the patient has antibody to Mycoplasma.It does not differentiate between an activeor past infection. The clinical diagnosismust be interpreted in conjunction with theclinical signs and symptoms of the patient.THIS TEST WAS PERFORMED AT:[employer]/[facility] [id number] [place] [address]NOJUKNICOLÁS WATTERS MD,PHD ,PRACHI [facility] Vancomycin Level Trough December 14, 2023 11:51pm 27.3 ug/mL Above high normal 10.0-20.0 [facility] [id number] [address] [place] [address] Vancomycin Level Trough January 06, 2024 5:11am 20.2 ug/mL Above high normal 10.0-20.0 [facility] [id number] [address] [place] [address] Vancomycin Level Trough April 01, 2024 2:04pm 15.4 ug/mL 10.0-20.0 [facility] [id number] [address] [place] [address] Valproic Acid (Depakene) Level December 13, 2023 3:00pm 39.7 ug/mL Below low normal 50-120 [facility] [id number] [address] [place] [address] Valproic Acid (Depakene) Level February 16, 2024 4:04am 74.8 ug/mL 50-120 [facility] [id number] [address] [place] [address] Valproic Acid (Depakene) Level March 29, 2024 2:55pm 117.2 ug/mL 50-120 Possible Toxicity: > 100.0 ug/ml [facility] [id number] [address] [place] [address] Arterial Blood pH January 03, 2024 12:13am 7.472 Above high normal 7.350-7.45 0 [facility] [id number] [address] [place] [address] Arterial Blood pH March 29, 2024 6:40pm 7.410 7.350-7.45 0 [facility] [id number] [address] [place] [address] Arterial Blood Partial Pressure CO2 January 03, 2024 12:13am 36.6 mm[Hg] 35.0-45.0 [facility] [id number] [address] [address] Arterial Blood Partial Pressure CO2 March 29, 2024 6:40pm 44.4 mm[Hg] 35.0-45.0 [facility] [id number] [address] [address] Arterial Blood Partial Pressure O2 January 03, 2024 12:13am 95.9 mm[Hg] 80.0-100.0 [facility] [id number] [address] [address] Arterial Blood Partial Pressure O2 March 29, 2024 6:40pm 76.4 mm[Hg] Below low normal 80.0-100.0 [facility] [id number] [address] [address] Arterial Blood HCO3 January 03, 2024 12:13am 26.2 meq/L Above high normal 22.0-26.0 [facility] [id number] [address] [address] Arterial Blood HCO3 March 29, 2024 6:40pm 27.5 meq/L Above high normal 22.0-26.0 [facility] [id number] [address] [address] Arterial Blood Base Excess January 03, 2024 12:13am 2.6 meq/L +/-2.0 [facility] [id number] [address] [address] Arterial Blood Base Excess March 29, 2024 6:40pm 2.4 meq/L +/-2.0 [facility] [id number] [address] [address] Arterial Blood Oxygen Saturation January 03, 2024 12:13am 97.7 % 95.0-100.0 [facility] [id number] [address] [address] Arterial Blood Oxygen Saturation March 29, 2024 6:40pm 95.4 % 95.0-100.0 [facility] [id number] [address] [address] Total Hemoglobin January 03, 2024 12:13am 11.9 g/dL Below low normal 12.0-18.0 [facility] [id number] [address] [address] Total Hemoglobin March 29, 2024 6:40pm 13.6 g/dL 12.0-18.0 [facility] [id number] [address] [address] Blood Gas A-a Gradient January 03, 2024 12:13am 82.2 mm[Hg] [facility] [id number] [address] [address] Blood Gas A-a Gradient March 29, 2024 6:40pm 519.8 mm[Hg] [facility] [id number] [address] [address] Arterial Blood Oxygen Content January 03, 2024 12:13am 16.4 %{vol} 16.0-22.0 [facility] [id number] [address] [address] Arterial Blood Oxygen Content March 29, 2024 6:40pm 18.0 %{vol} 16.0-22.0 [facility] [id number] [address] [address] Oxyhemoglobin January 03, 2024 12:13am 97.2 %{Hemoglobi n} 90.0-100.0 [facility] [id number] [address] [address] Oxyhemoglobin March 29, 2024 6:40pm 94.0 %{Hemoglobi n} 90.0-100.0 [facility] [id number] [address] [address] Carboxyhemogl obin March 29, 2024 6:40pm 0.4 %{Hemoglobi n} 0-2.0 [facility] [id number] [address] [address] Methemoglobin March 29, 2024 6:40pm 0.2 %{Hemoglobi n} 0-1.5 [facility] [id number] [address] [address] Reduced Hemoglobin March 29, 2024 6:40pm 5.4 %{Hemoglobi n} Above high normal 0-5.0 [facility] [id number] [address] [address] Arterial Blood PO2/FiO2 Ratio January 03, 2024 12:13am 3.09 % [facility] [id number] [address] [address] Arterial Blood PO2/FiO2 Ratio March 29, 2024 6:40pm 0.85 % [facility] [id number] [address] [address] FiO2 January 03, 2024 12:13am 31 % [facility] [id number] [address] [address] FiO2 March 29, 2024 6:40pm 90 % [facility] [id number] [address] [address] Blood Gas Puncture Site January 03, 2024 12:13am Right radial [facility] [id number] [address] [address] Blood Gas Puncture Site March 29, 2024 6:40pm Right radial [facility] [id number] [address] [address] Oxygen Delivery Device January 03, 2024 12:13am High flow therapy [facility] [id number] [address] [address] Oxygen Delivery Device March 29, 2024 6:40pm Non-rebreat her mask [facility] [id number] [address] [address] Oxygen Liters/Minute January 03, 2024 12:13am 30.0 LPM [facility] [id number] [address] [address] Oxygen Liters/Minute March 29, 2024 6:40pm 15.0 LPM trach present with a 15L NRB [facility] [id number] [address] [address] Urine Casts December 05, 2023 2:14am 0-2 [facility] [id number] [address] [address] Urine Casts December 13, 2023 8:37am 0-2 [facility] [id number] [address] [address] Urine Casts December 23, 2023 12:23pm 0-2 [facility] [id number] [address] [address] Urine Casts February 10, 2024 5:33am 0-2 [facility] [id number] [address] [address] Urine Casts March 29, 2024 3:58pm 11-20 [facility] [id number] [address] [address] Add Urine Microanalysis December 23, 2023 12:23pm [facility] [id number] [address] [place] [address] Add Urine Microanalysis March 29, 2024 3:58pm [facility] [id number] [facility] [address] [place] [address] Adenovirus DNA January 02, 2024 5:54pm Not detected Not Detected [facility] Rhinovirus/En terovirus (BASILIO) January 02, 2024 5:54pm Not detected Not Detected [facility] Influenza A (PCR) January 02, 2024 5:54pm Not detected Not Detected [facility] Influenza A (H1) RNA January 02, 2024 5:54pm Not detected Not Detected [facility] Influenza Type A (H3) (PCR) January 02, 2024 5:54pm Not detected Not Detected [facility] Influenza Type B (PCR)(MISC) January 02, 2024 5:54pm Not detected Not Detected [facility] Human Metapneumovir us (PCR) January 02, 2024 5:54pm Not detected Not Detected [facility] Nasal RSV Type A (PCR) January 02, 2024 5:54pm Not detected Not Detected [facility] Nasal RSV Type B (PCR) January 02, 2024 5:54pm Not detected Not Detected [facility] Parainfluenza Virus (PCR) January 02, 2024 5:54pm Not detected Not Detected [facility] Parainfluenza Type 2 (PCR) January 02, 2024 5:54pm Not detected Not Detected [facility] Parainfluenza Type 3 RNA (PCR) January 02, 2024 5:54pm Not detected Not Detected [facility] Miscellaneous Test Comment January 02, 2024 5:54pm see note THIS ASSAY WILL NOT DETECT SARS-CoV-2 (COVID-19)This test is performed using the e[employer]ifter.Limitations: A negative result does not rule outrespiratory pathogen infection below the sensitivitylimi t of the assay. The sensitivity depends on pathogenand sample type. This assay cannot reliably distinguishbetw een Rhinovirus and Enterovirus due to geneticsimilari ties between the viruses.THIS TEST WAS PERFORMED AT:[employer]/[facility] [id number] [place] [address]NUAOP MY BOLANOS MD,PHD [facility] Parainfluenza Type 4 (PCR) January 02, 2024 5:54pm Not detected Not Detected [facility] Coronavirus Type 229E January 02, 2024 5:54pm Not detected Not Detected [facility] Coronavirus Type OC43 January 02, 2024 5:54pm Not detected Not Detected [facility] Coronavirus Type NL63 January 02, 2024 5:54pm Not detected Not Detected [facility] Coronavirus Type HKU1 January 02, 2024 5:54pm Not detected Not Detected [facility] Human Bocavirus (BASILIO) January 02, 2024 5:54pm Not detected Not Detected [facility] Chlamydophila pneumoniae (PCR) January 02, 2024 5:54pm Not detected Not Detected [facility] Mycoplasma pneumoniae DNA January 02, 2024 5:54pm Not detected Not Detected [facility] SARS-CoV-2 RNA (RT-PCR) January 02, 2024 5:54pm Not detected Not Detected A Not Detected result means that SARS-CoV-2 RNA wasnot present in the specimen above the limit ofdetection.A Not Detected result does not rule out the possibilityof COVID-19 and should not be used as the sole basisfor treatment or patient management decisions. IfCOVID-19 is still suspected, based on exposure historytogether with other clinical findings, re-testingshoul d be considered in the context of clinicalobserva tions and epidemiological data for patientmanageme nt decisions.Test Method: Nucleic Acid Amplification Test includingrevers e book salesman polymerase chain reaction(RT-PCR ) and book salesman mediated amplification(T MA). The test method meets the [place] Centers forDisease Control and Prevention (CDC) pre departureand arrival requirement for viral test for COVID-19dated June 26, 2020. Testing requirements fortraveling may change with time. The patient isresponsible for determining the test requirementfor each nation while they are traveling.This test has been authorized by the FDA under anEmergency Use Authorization (EUA) for use bymin[facility] laboratories.Pl ease review the Fact Sheets and FDA authorizedlabel ing available for health care providers andpatients using the following websites:https: //www.[employer].com/kylie e/Covid-19/HCP/ QuestLDT/fact-s heet.htmlhttps: //www.[employer].com/kylie e/Covid-19/Neha ents/QuestLDT/f act-sheet.htmlD ue to the current public health emergency, [facility] is accepting samples from appropriateclin ical sources collected using wide variety of swabsand transport media for COVID-19. Not Detected testresults derived from specimens received [employer] manufactured viral collection kits orthose not yet authorized by FDA for COVID-19 testingshould be cautiously evaluated and take extraprecaution s such as additional clinical monitoring,incl uding collection of additional specimen.Additi onal information about COVID-19 can be found atthe [employer] (Offers.com) website:www.Chefs Feed stDiagnostics.c om/Ytxun94Xqo patients with a Detected or Inconclusive testresult, please see CDC's COVID-19 Treatments andMedications page located at https://www.cdc .gov/coronaviru s/2019-ncov/you r-health/treatm antn-fgq-gdgxhf -illness.html for information on COVID-19 therapeutics.Fo r patients with a Not Detected test result, pleasesee CDC's Vaccines for COVID-19 page located athttps://www.c dc.gov/coronavi nelly/2019-ncov/v accines/index.h tml for information on COVID-19 vaccines.THIS TEST WAS PERFORMED AT:[employer]/[facility] [id number] [place] [address]RVGWO MY BOLANOS MD,PHD [facility] Nasal MRSA (PCR) December 13, 2023 10:15am Detected Abnormal (applies to non-numeric results) NOT DETECTE The MRSA Real-Time PCR test is not intended to diagnose, guide, or monitor MRSA infections. Concomitant cultures are necessary to recover organisms for epidemiological typing or for further susceptibility testing. Critic al test result called with verbal read-back verified at 1228 on 12/13/23 by Aisha Ramachandran MLT, ([facility]Caregive r: GENEVA DOYLECritical test name and result given:MRSA DETECTED [facility] [id number] [address] [place] [address] Nasal MRSA (PCR) January 02, 2024 6:05am Detected Abnormal (applies to non-numeric results) NOT DETECTE The MRSA Real-Time PCR test is not intended to diagnose, guide, or monitor MRSA infections. Concomitant cultures are necessary to recover organisms for epidemiological typing or for further susceptibility testing. POSITI VE MRSA CALLED TO YSABEL ARMSTRONG RN IN ED AT 0834 BY CHRISTIANO ON 01/02/2024 [facility] [id number] [address] [address] Nasal MRSA (PCR) February 10, 2024 8:24am Detected Abnormal (applies to non-numeric results) NOT DETECTE The MRSA Real-Time PCR test is not intended to diagnose, guide, or monitor MRSA infections. Concomitant cultures are necessary to recover organisms for epidemiological typing or for further susceptibility testing. [facility] [id number] [address] [address] Microbiology Results Procedure Source Result Collection Date/Time Result Date/Time Result Comment Performing Site Blood Culture Blood December 13, 2023 9:21am December 19, 2023 12:49am [facility] Blood Culture Blood December 13, 2023 9:21am December 19, 2023 12:43am [facility] Blood Culture Blood January 05, 2024 12:49pm January 11, 2024 3:32am [facility] Blood Culture Blood February 14, 2024 3:15pm February 20, 2024 12:13am [facility] Blood Culture Blood February 14, 2024 3:15pm February 20, 2024 12:13am [facility] Urine Culture Urine Catheterized December 13, 2023 9:37am December 14, 2023 7:58pm [facility] Urine Culture Urine Clean Catch December 23, 2023 1:23pm December 24, 2023 11:23pm [facility] Urine Culture Urine Clean Catch Pseudomonas aeruginosa February 10, 2024 6:33am February 12, 2024 12:47pm [facility] Urine Culture Urine [place]ella morganii March 29, 2024 4:58pm March 31, 2024 10:08am [facility] Sputum Culture Sputum Pseudomonas aeruginosa December 13, 2023 2:15pm December 17, 2023 7:18am [facility] Sputum Proteus Mirabilis December 13, 2023 2:15pm December 17, 2023 7:18am [facility] Sputum Culture Sputum January 02, 2024 1:20pm January 03, 2024 11:13am [facility] Sputum Culture Sputum Pseudomonas aeruginosa February 15, 2024 6:45pm February 22, 2024 8:22am [facility] Reports Author Malachi Portillosdkim [facility] March 29, 2024 6:06pm Report Date/Time March 29, 2024 6 :07pm [address] [address] [address] Scan Report Signed Patient: Bi Tabor : 1960 MR#: [id number] Age: 64 Acct:[id number] Loc: [facility] ADM Date: 03/29/[address]: Ordering Physician: Shakila Hernandez PA-C Date of Service: 03/29/24 Procedure(s): CT brain wo con Accession Number(s): [id number] cc: Lauro, Burke OLSEN; Shakila Hernandez PA-C~ CT brain wo con Ordering provider: Shakila Hernandez PA-C History: 64 years Male with . ams . Comparison: February 10, 2024 Technique: CT of the head without contrast. Radiation reduction technique utilized. The dose-length product was 681 mGy-cm. FINDINGS: BRAIN PARENCHYMA AND CSF SPACES: Moderate leukoaraiosis and diffuse cortical atrophy. Moderate atheromatous disease. Hypodensity in the right occipital area suggestive of encephalomalacia unchanged. No midline shift, mass effect or hemorrhage. The brain parenchyma and CSF spaces are otherwise normal. VISUALIZED PARANASAL SINUSES: Right maxillary sinus disease. Bilateral ethmoid sinus disease. MASTOIDS: Well aerated. BONES: The bones appear intact. SOFT TISSUES: Visualized nasopharynx is normal. Soft tissue density seen anterior to the right orbit. Left occipital soft tissue density which may indicate a hematoma or sebaceous cyst. Otherwise, Superficial soft tissues are normal. IMPRESSION: No acute intracranial findings. Reviewed, dictated and finalized at location A. Dictated By: Malachi Shields MD 03/29/24 7159 Signed By: <Electronically signed by Malachi Shields MD in OV> 03/29/24 4656 Author Malachi Shields [facility] March 29, 2024 7:46pm Report Date/Time March 29, 2024 7 :47pm [place] [id number] [place] [address] CT Scan Report Signed Patient: Bi Tabor : 1960 MR#: [id number] Age: 64 Acct:[id number] Loc: ANHED ADM Date: 03/29/[address]: Ordering Physician: Shakila Hernandez PA-C Date of Service: 03/29/24 Procedure(s): CT facial & cervical spine wo Accession Number(s): [id number] cc: Lauro, Burke OLSEN; Shakila Hernandez PA-C~ CT facial & cervical spine wo Ordering provider: Shakila Hernandez PA-C History: . sz, unknown fall, redness/swelling to face . Comparison: None. Technique: Thin slice axial CT of the facial bones was performed without contrast. Coronal and sagittal reformatted images were also obtained. . Automated exposure control and iterative reconstruction technique were employed.The dose-length product was 462.59 mGy-cm. FINDINGS: PARANASAL SINUSES: Left frontal sinus disease. Bilateral ethmoid sinus disease. Soft tissue density in the right maxillary sinus suggestive of right maxillary sinus disease. Protrusion of this soft tissue density into the nasal cavity alsoraises the possibility of a mass lesion. Clinical correlation advised. Minimal left maxillary sinus disease.. BONES: Fracture in the medial wall of the left orbit most likely old. Acute fracture is less likely.. Sclerotic area seen in the anterior lower mandible. Follow-up advised. No other facial fracture including no nasal bone fracture. ORBITS AND SUPERFICIAL SOFT TISSUES: The optic globes and orbits are normal. Thesuperficial soft tissues are normal. VISUALIZED MASTOIDS: Well aerated. LIMITED VISUALIZED BRAIN PARENCHYMA: Brain atrophy with deep white matter ischemic changes. Tracheostomy tube is noted. IMPRESSION: Old fracture in the medial wall of the left orbit. Pansinusitis. Soft tissue density in the right maxillary sinus is not excluded. Clinical correlation advised. Sclerotic area in the lower mandible. Follow-up advised. ------- CT facial & cervical spine wo Ordering provider: Shakila Hernandez PA-C History: . sz, unknown fall, redness/swelling to face . Comparison: None. Technique: CT of the cervical spine was performed without contrast. Sagittal and coronal reformatted images were also obtained and reviewed. Automated exposure control and iterative reconstruction technique were employed. The dose-length product was 462.59 mGy-cm. FINDINGS: VERTEBRAE: No subluxation or acute fracture. The occipital condyles are intact. Chronic loss of volume of C6 and C5 is noted. DISC SPACES: Narrowing of the disc space at the level of C5-C6 and C6-C7 multilevel facet joint disease. Multilevel uncovertebral joint osteoarthritic changes. Mild spinal canal stenosis at the level of C5-C6 and C6-C7 with narrowing of the foramina. PARASPINOUS SOFT TISSUES: Normal. IMPRESSION: No acute osseous abnormality cervical spine. Reviewed, dictated and finalized at location A. Dictated By: Malachi Shields MD 03/29/241924 Signed By: <Electronically signed by Malachi Shields MD in OV> 03/29/241945 Author Malachi Shields [facility] March 29, 2024 8:17pm Report Date/Time March 29, 2024 8 :18pm [address] [address] [address] Scan Report Signed Patient: Bi Tabor : 1960 MR#: [id number] Age: 64 Acct:[id number] Loc: ANHED ADM Date: 03/29/[address]: Ordering Physician: Shakila Hernandez PA-C Date of Service: 03/29/24 Procedure(s): CT diagnostic chest w con Accession Number(s): [id number] cc: Lauro, Burke OLSEN; Shakila Hernandez PA-C~ CT diagnostic chest w con Ordering provider: Shakila Hernandez PA-C History: 64 years Male with . swelling of face/upper ext, r/o svc syndrome . Comparison: None. Technique: CT chest with IV contrast. Radiation reduction technique utilized. The dose-length product was 298.41 mGy- cm. Findings: VISUALIZED THORACIC INLET: Normal. Tracheostomy is noted. MEDIASTINUM: No evidence of thrombosis seen in the area vena cava. Aorta/coronary arteries: Mild atheromatous disease. Heart/other: The heart is slightly enlarged. Lymph nodes: No mediastinal or hilar adenopathy. Secretions are seen in the right main bronchus and the trachea. LUNGS: Atelectatic changes in the posterior aspect of the right upper and mediallobe . Minimal atelectatic changes in the lower lobes. No pulmonary nodules or masses. No effusions. No pneumothorax. VISUALIZED UPPER ABDOMEN: Sliding hiatus hernia. Otherwise, the visualized upperabdomen is normal. MUSCULOSKELETAL: Soft tissues: The superficial soft tissues are normal. Bones: Normal spine. IMPRESSION: No evidence of occlusion seen in the superior vena cava. Atelectasis versus pneumonia in the right upper and middle lobes posteriorly. Minimal atelectatic changes in the lower lobes. Reviewed, dictated and finalized at location A. Dictated By: Malachi Shields MD 03/29/242002 Signed By: <Electronically signed by Malachi Shields MD in OV> 03/29/24 2017 Cardiology Reports Author [facility] March 30, 2024 6:41am Report Date/Time March 30, 2024 6 :41am [facility] [address] [place] [id number] Electrocardiograph Report Signed Patient: iB Tabor : 1960 MR#: [id number] Age: 64 Acct:[id number] Loc: ANHIMU ADM Date: 03/29/[address]: Rachel Roach D.O. Ordering Physician: David Cash MD Date of Service: 03/29/24 Procedure(s): CA 12 lead EKG Accession Number(s): [id number] cc: ~ Test Date: 2024-03-29 15:45:54 Measurements Intervals [place] Rate: 99 P: 62 WA: 140 QRS: -28 QRSD: 81 T: 67 QT: 327 QTc: 421 Interpretive Statements SINUS RHYTHM INFERIOR INFARCT, AGE INDETERMINATE ANTEROSEPTAL INFARCT, AGE INDETERMINATE ABNORMAL ECG Compared to ECG 02/08/2024 03:08:23 No significant changes Electronically Signed On 03-30-2024 06:40:37 CDT by Dave Hernandez D.O. Dictated By: Dave Hernandez DO 03/29/24 1545 Signed By: <Electronically signed by Dave Hernandez DO in OV> 03/30/24 0641 Vital Signs Vital Reading Result Reference Range Collection Date/Time Height 68 [in_i] November 23, 2023 12:52am Weight 72.10 kg November 23, 2023 12:52am Body Temperature 98.9 [degF] 97.6-99.6 November 23, 2023 12:58am Heart Rate 92 /min 60-100 November 23, 2023 7:00am Respiratory rate 18 /min 12-November 23, 2023 7:00am Oxygen saturation by Pulse oximetry 100 % 90-100 November 23, 2023 7:00 am BP Systolic 154 mm[Hg] 100-140 November 23, 2023 7:00am BP Diastolic 94 mm[Hg] 60-90 November 23, 2023 7:00am Inhaled oxygen concentration 21 % November 23, 2023 6:25am Inhaled oxygen flow rate 35 L/min Oct 6:25am Height 71 [in_i] December 05, 2023 12:22am Weight 69.50 kg December 05, 2023 12:22am Body Temperature 98.9 [degF] 97.6-99.6 December 04, 2 024 12:22am Heart Rate 100 /min 60-100 December 05, 2023 6:30am Respiratory rate 20 /min -December 04, 2 024 6:30am Oxygen saturation by Pulse oximetry 100 % 90-100 December 05, 2023 6:30a m BP Systolic 135 mm[Hg] 100-140 December 05, 2023 6:30am BP Diastolic 88 mm[Hg] 60-90 December 05, 2023 6:30am Height 71 [in_i] December 13, 2023 12:40pm Weight 76.30 kg December 18, 2023 3:34am Body Temperature 97.6 [degF] 97.6-99.6 December 18, 2023 3:29am Heart Rate 90 /min 60-100 December 18, 2023 9:00am Respiratory rate 18 /min -December 18, 2023 6:49am Oxygen saturation by Pulse oximetry 94 % 90-December 18, 2023 8:55 am BP Systolic 148 mm[Hg] 100-140 December 18, 2023 3:29am BP Diastolic 85 mm[Hg] 60-90 December 18, 2023 3:29am BMI (Body Mass Index) 22.3 kg/m2 November 272023 10:05am Inhaled oxygen concentration 21 % December 18, 2023 6:32am Inhaled oxygen flow rate 30 L/min Nov 8:55am Height 70 [in_i] December 20, 2023 7:54pm Weight 71.00 kg December 20, 2023 7:54pm Body Temperature 97.6 [degF] 97.6-99.6 December 20, 2023 7:54pm Heart Rate 87 /min 60-100 December 21, 2023 12:40am Respiratory rate 18 /min 05-18December 21, 2023 12:40am Oxygen saturation by Pulse oximetry 100 % 90-December 21, 2023 12:4 0am BP Systolic 134 mm[Hg] 100-140 December 21, 2023 12:40am BP Diastolic 75 mm[Hg] 60-90 December 21, 2023 12:40am Inhaled oxygen flow rate 6 L/min Nov 8:01pm Height 65 [in_i] December 21, 2023 12:17pm Weight 55.00 kg December 21, 2023 12:17pm Body Temperature 98.2 [degF] 97.6-99.6 December 21, 2023 12:17pm Heart Rate 73 /min 60-100 December 21, 2023 4:50pm Respiratory rate 16 /min -December 21, 2023 4:50pm Oxygen saturation by Pulse oximetry 98 % 90-100 December 21, 2023 4:50 pm BP Systolic 167 mm[Hg] 100-140 December 21, 2023 4:50pm BP Diastolic 79 mm[Hg] 60-90 December 21, 2023 4:50pm Height 71 [in_i] December 23, 2023 10:18am Weight 73.60 kg December 23, 2023 10:18am Body Temperature 98.0 [degF] 97.6-99.6 December 23, 2023 10:18am Heart Rate 97 /min 60-100 December 23, 2023 3:16pm Respiratory rate 17 /min -December 23, 2023 3:16pm Oxygen saturation by Pulse oximetry 100 % 90-100 December 23, 2023 3:01 pm BP Systolic 177 mm[Hg] 100-140 December 23, 2023 3:16pm BP Diastolic 110 mm[Hg] 60-90 December 23, 2023 3:16pm Inhaled oxygen concentration 21 % December 23, 2023 10:31am Inhaled oxygen flow rate 30 L/min Nov 10:31am Weight 71.00 kg December 27, 2023 8:44pm Body Temperature 97.8 [degF] 97.6-99.6 December 27, 2023 8:50pm Heart Rate 88 /min 60-100 December 27, 2023 9:47pm Respiratory rate 17 /min -December 27, 2023 9:47pm Oxygen saturation by Pulse oximetry 99 % 90-100 December 27, 2023 9:47 pm BP Systolic 145 mm[Hg] 100-140 December 27, 2023 9:47pm BP Diastolic 80 mm[Hg] 60-90 December 27, 2023 9:47pm Height 69 [in_i] December 29 3:59am Weight 67.00 kg December 29 3:59am Body Temperature 97.4 [degF] 97.6-99.6 December 30, 2023 10:30am Heart Rate 100 /min 60-100 December 29 10:30am Respiratory rate 20 /min -December 30, 2023 10:30am Oxygen saturation by Pulse oximetry 96 % 90-100 December 30, 2023 10: 30am BP Systolic 110 mm[Hg] 100-140 December 29 10:30am BP Diastolic 78 mm[Hg] 60-90 December 29 10:30am Inhaled oxygen flow rate 15 L/min Dec 3:59am Height 69 [in_i] January 01 7:30am Weight 73.00 kg January 06 2:48am Body Temperature 98.6 [degF] 97.6-99.6 December 11:00am Heart Rate 110 /min 60-100 January 06 1:30pm Respiratory rate 32 /min 05-18 1:30pm Oxygen saturation by Pulse oximetry 92 % 90-100 January 07, 2024 1: 21pm BP Systolic 114 mm[Hg] 100-140 January 06 11:00am BP Diastolic 74 mm[Hg] 60-90 January 06 11:00am BMI (Body Mass Index) 21.4 kg/m2 January 02, 2024 9:21am Inhaled oxygen concentration 21 % January 07, 2024 1:21pm Inhaled oxygen flow rate 15 L/min Dec 1:21pm Height 72 [in_i] January 06 10:04pm Weight 72.00 kg January 06 10:04pm Body Temperature 98.0 [degF] 97.6-99.6 December 10:04pm Heart Rate 81 /min 60-100 January 07 9:14am Respiratory rate 20 /min -December 9:14am Oxygen saturation by Pulse oximetry 100 % 90-100 January 08, 2024 9: 14am BP Systolic 144 mm[Hg] 100-140 January 07 9:14am BP Diastolic 81 mm[Hg] 60-90 January 07 9:14am Inhaled oxygen concentration 21 % January 07, 2024 10:15pm Inhaled oxygen flow rate 20 L/min [facility] 2023 10:15pm Height 71 [in_i] January 25 4:07am Weight 67.10 kg January 25 4:07am Body Temperature 98 [degF] 97.6-99.6 December 4:07am Heart Rate 72 /min 60-100 January 25 4:07am Respiratory rate 15 /min -December 4:14am Oxygen saturation by Pulse oximetry 100 % 90-100 2024 4: 14am BP Systolic 166 mm[Hg] 100-140 January 25 4:07am BP Diastolic 87 mm[Hg] 60-90 January 25 4:07am Body Temperature 98.0 [degF] 97.6-99.6 January 282023 1:57am Heart Rate 82 /min 60-100 February 08, 2024 4:16am Respiratory rate 20 /min -January 282023 4:16am Oxygen saturation by Pulse oximetry 100 % 90-100 February 08, 2024 4:16am BP Systolic 163 mm[Hg] 100-140 February 08, 2024 4:16am BP Diastolic 93 mm[Hg] 60-90 February 08, 2024 4:16am Inhaled oxygen flow rate 10 L/min [facility] 2023 2:12am Height 70 [in_i] February 09, 2024 10:34pm Weight 74.50 kg February 16, 2024 4:00am Body Temperature 98 [degF] 97.6-99.6 January 282023 6:38pm Heart Rate 86 /min 60-100 February 16, 2024 10:50pm Respiratory rate 18 /min -January 282023 10:50pm Oxygen saturation by Pulse oximetry 93 % 90-100 February 16, 2024 10:50pm BP Systolic 149 mm[Hg] 100-140 February 16, 2024 10:50pm BP Diastolic 90 mm[Hg] 60-90 February 16, 2024 10:50pm BMI (Body Mass Index) 23.1 kg/m2 Septem shakir 2023 8:51am Inhaled oxygen concentration 21 % February 16, 2024 7:00pm Inhaled oxygen flow rate 35 L/min Sep tember 2023 7:00pm Height 72 [in_i] March 10, 2 024 4:56am Weight 73.50 kg March 10, 2 024 4:56am Body Temperature 98 [degF] 97.6-99.6 February 4:56am Heart Rate 82 /min 60-100 March 10, 2 024 7:01am Respiratory rate 20 /min -February 7:01am Oxygen saturation by Pulse oximetry 99 % 90-100 March 10, 2024 7 :47am BP Systolic 154 mm[Hg] 100-140 March 10, 2 024 7:31am BP Diastolic 94 mm[Hg] 60-90 March 10, 2 024 7:31am Inhaled oxygen concentration 35 % March 10, 2024 7:09am Inhaled oxygen flow rate 9 L/min Oct flor2023 7:09am Height 70 [in_i] March 29, 2 024 2:35pm Weight 75.20 kg April 03, 2 024 4:30am Body Temperature 98 [degF] 97.6-99.6 March 11:22am Heart Rate 73 /min 60-100 April 03, 2 024 1:56pm Respiratory rate 18 /min -March 11:22am Oxygen saturation by Pulse oximetry 95 % 90-100 April 03, 2024 1 :56pm BP Systolic 154 mm[Hg] 100-140 April 03, 2 024 11:22am BP Diastolic 84 mm[Hg] 60-90 April 03, 2 024 11:22am BMI (Body Mass Index) 23.7 kg/m2 Novemb er 2023 8:05am Inhaled oxygen concentration 21 % April 03, 2024 1:56pm Inhaled oxygen flow rate 20 L/min Nov emb2023 1:56pm Advance Directives Advance Directive Response Recorded Date/ Time Current Advance Directive Yes November 272023 12:40pm Advance Directive Type Living Will November 12:40pm Advance Directive Intent Full Code December 122023 12:40pm Current Advance Directive No January 02, 2024 9:21am Current Advance Directive Yes Septem 2023 10:34pm Advance Directive Type Healthcare Power of Attor sujit February 09, 2024 10:34pm Name of Healthcare Power Of Weather Strip Installer Adriane Hilliard February 09, 2024 10:34pm Advance Directive Intent Do Not Resuscitate Sept emb2023 10:34pm Current Advance Directive Yes Novemb er 2023 2:31am Advance Directive Type Living Will March 30, 2024 2:31am Advance Directive Intent full code Novembe r 2023 2:31am Insurance Providers Guarantor Bi Tabor Address [address] [place] [address] Contact Info. Home Phone: Payer Policy Id Coverage Id Subscriber's Name Subscriber Id Effective Date Expiration Date [place] [id number] Bi Tabor [id number] [place] [id number] Bi Tabor [id number] [place] [id number] Bi Tabor [id number] Self Pay Self N/A Encounters Encounter Location(s) Arrival/Admit Date Discharge /Depart Date Provider(s) Departed Emergency [facility] Emergency Department November 23, 2023 12:50am November 23, 2023 9:46am null Departed Emergency [facility] Emergency Department December 05, 2023 12:21am December 05, 2023 7:57am null Discharged Inpatient [facility] 3 Med Surg December 13, 2023 11:35am December 18, 2023 12:25pm Jacquelyn Harrison MD Departed Emergency [facility] Emergency Department December 20, 2023 8:19pm December 21, 2023 1:47am null Departed Emergency [facility] Emergency Department December 21, 2023 12:22pm December 21, 2023 6:04pm null Departed Emergency [facility] Emergency Department December 23, 2023 10:18am December 23, 2023 3:33pm null Departed Emergency [facility] Emergency Department December 27, 2023 8:42pm December 27, 2023 11:40pm null Departed Emergency [facility] Emergency Department December 30, 2023 3:57am December 30, 2023 10:35am null Discharged Inpatient [facility] Intermediate Care Unit January 03, 2024 8:29am January 07, 2024 2:15pm Angela James APRN Departed Emergency [facility] Emergency Department January 07, 2024 9:46pm January 08, 2024 8:30am null Departed Emergency [facility] Emergency Department 2024 4:00am 2024 4:40am null Departed Emergency [facility] Emergency Department February 08, 2024 1:54am February 08, 2024 5:28am null Discharged Inpatient [facility] Inter[facility] Care [facility] February 15, 2024 12:10pm February 16, 2024 10:40pm Angela James APRN Departed Emergency [facility] Emergency Department March 10, 2024 4:55am March 10, 2024 8:05am null Discharged Inpatient [facility] Intermediate Care [facility] March 31, 2024 9:54am April 03, 2024 2:36pm Zeferino Morfin MD Recent Diagnosis Onset Date Acute kidney injury Acute UTI Atrial fibrillation with rapid ventricul ar response Elevated LFTs Increased tracheal secretions MRSA colonization Pneumonia Tracheostomy in place Cerebrovascular accident Gastrostomy tube dependent Seizure disorder Gastrojejunal tube present HCAP (healthcare-associated pneumonia) Pneumonia Sepsis Seizure disorder Tracheostomy dependence Acute UTI Atrial fibrillation with rapid ventricul ar response Chronic obstructive pulmonary disease Chronic respiratory failure with hypoxia Intractable seizure disorder Lung collapse Seizures Tracheostomy in place Vegetative state Cerebrovascular accident Gastrostomy tube dependent Seizure disorder Thrombocytopenia Tracheostomy dependence Unilateral complete AKA Mucus plugging of bronchi Altered mental status Gastrojejunal tube present Intractable seizure disorder Rash of face Seizures UTI (urinary tract infection) History of multiple strokes Functional Status Observation Response Date Recorded Functional capacity on discharge bed bound December 18, 2023 8:54am Functional capacity on discharge bed bound January 07, 2024 12:12pm Mental Status Observation Response Date Recorded patient oriented x3 Yes February 082023 11:04pm Assessments Diagnosis Onset Date Resolution Status Acute kidney injury acute Acute UTI acute Atrial fibrillation with rapid ventricular response acute Elevated LFTs acute Increased tracheal secretions acute MRSA colonization acute Pneumonia acute Tracheostomy in place acute Cerebrovascular accident chr onic Gastrostomy tube dependent c hronic Seizure disorder chronic Gastrojejunal tube present a cute HCAP (healthcare-associated pneumonia) acute Pneumonia acute Sepsis acute Seizure disorder chronic Tracheostomy dependence 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 Acute UTI acute Atrial fibrillation with rapid ventricular response acute Chronic obstructive pulmonary disease acute Chronic respiratory failure with hypoxia acute Intractable seizure disorder acute Lung collapse acute Seizures acute Tracheostomy in place acute Vegetative state acute Cerebrovascular accident chr onic Gastrostomy tube dependent c hronic Seizure disorder chronic Thrombocytopenia chronic Tracheostomy dependence 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 Unilateral complete AKA 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 Mucus plugging of bronchi re solved Altered mental status acute Gastrojejunal tube present a cute Intractable seizure disorder acute Rash of face acute Seizures acute UTI (urinary tract infection) acute History of multiple strokes chronic Plan of Treatment Future Tests Future scheduled test information is unavailable Pending Tests Pending diagnostic test information is unavailable Future Visits Future appointment information is unavailable Referrals to Other Providers Reason for Referral Referral Start Date Provider Provider Contact Information Provider Address Burke Restrepo MD Work Phone: [address] [place] [address] Burke Restrepo MD Work Phone: [address] [place] [address] Burke Restrepo MD Work Phone: [address] [place] [address] Burke Restrepo MD Work Phone: [address] [place] [address] Burke Restrepo MD Work Phone: [address] [place] [address] Burke Restrepo MD Work Phone: [address] [place] [address] Call today to coordinate close follow up with his PCP or provider at his facility. Burke Restrepo MD Work Phone: [address] [place] [address] Burke Restrepo MD Work Phone: [address] [place] [address] Burke Restrepo MD Work Phone: [address] [place] [address] Burke Restrepo MD Work Phone: [address] [facility] [address] Burke Marcialcornelius , Work Phone: [address] [facility] [address] Burke Aggiedu , Work Phone: [address] [facility] [address] Burke Marcialdu , Work Phone: [address] [facility] [address] Burke Lauro , Work Phone: [address] [facility] [address] Cam Ramos MD Work Phone: AM [facility] [address]; [facility] [address] Future Procedures Procedure Name Ordered Date Scheduled Date Admit as Inpatient December 13, 2023 11:34am December 13, 2023 11:35am Discharge Order December 18, 2023 8:07am November 8:07am Consult to Physician December 16, 2023 10:38am Vivek y 2023 11:00pm Care Coordination Consult January 04, 2024 8:52a m January 03, 2024 11:00pm Consult to Dietitian January 04, 2024 9:58am Aug ust 2023 11:00pm Discharge Order January 07, 2024 12:03pm January 07, 2024 12:03pm Placement to Observation January 02, 2024 5:37am January 02, 2024 5:38am Change Status to Inpatient January 03, 2024 8:29 am January 03, 2024 8:29am Placement to Observation February 09, 2024 2: 03pm February 09, 2024 2:03pm Change Status to Inpatient February 15, 2024 12:10pm February 15, 2024 12:10pm Transfer to Outside Facility February 15 1:25pm February 15, 2024 11:00pm Consult to Physician February 09, 2024 2:03pm February 09, 2024 2:04pm Consult to Physician February 15, 2024 9:57am February 14, 2024 11:00pm Consult to Dietitian March 30, 2024 3:05am N ovember 2023 8:00am Discharge Order April 03, 2024 12:27pm Novem shakir 2023 12:27pm Placement to Observation March 29, 2024 10:3 2pm March 29, 2024 10:32pm Change Status to Inpatient March 31, 2024 9: 54am March 31, 2024 9:54am Consult to Physician March 30, 2024 1:36pm N ovember 2023 1:36pm Future Medications Future medication information is unavailable Patient Instructions Antibiotic Form Tracheostomy Care (ED) Antibiotic Form Acute Diarrhea (ED) Abdominal Pain (ED) Antibiotic Form Antibiotic Form Antibiotic Form Normal Exam (ED) PEG (Percutaneous Endoscopic Gastrostomy) Tube Insertion (DC) Antibiotic Form Constipation (DC) Catheter-associated Urinary Tract Infection (ED) Antibiotic Form Tracheostomy Care (ED) Esophagitis (ED) Antibiotic Form Hospital Acquired Pneumonia (DC) Antibiotic Form Acute Nausea and Vomiting (ED) Tracheostomy Care (ED) Antibiotic Form MRSA (Methicillin-Resistant Staphylococcus Aureus) (GEN) Antibiotic Form Antibiotic Form Apixaban (By mouth) Goals Acute Goals Author Authored Date Show improved communication ability * Demonstrates increased ability to understand and communicate needs [facility] December 18, 2023 12:41pm Maintain an effective breath ing pattern * Maintains a patent airway * Maintains vital signs WNL * Maintains optimal breath sounds [facility] December 18, 2023 12:41pm Maintain a patent airway * Performs deep breathing and coughing * Exhibits no adventitious breath sounds * Maintains adequate ventilation [facility] December 18, 2023 12:41pm Exhibit intact skin * Skin remains intact [facility] December 18, 2023 12:41pm Remain free of injury *Follows Safety Interventions [facility] December 18, 2023 12:41pm Improved infection * Maintains vital signs WNL * Evidences no purulent drainage from wounds, incisions, and tubes * Maintains optimal lab values [facility] December 18, 2023 12:41pm Maintains or Improves Mobili ty Maintains mobility or exhibits improvement in mobility [facility] December 18, 2023 12:41pm Verbalizes/Demonstrates Understanding *Demonstrates understanding of teaching [facility] December 18, 2023 12:41pm Participate in Discharge Zoraida nning In order to achieve this outcome, the patient/ and or family will: * assist in identification of DME needs * assist in identification of community resource needs * assist in identification of appropriate discharge destination [facility] December 18, 2023 12:41pm Develop pain management prog millicent In order to achieve this outcome the patient will: * Use the pain scale appropriately * Identify options for pain control - Analgesics - Narcotics - Non-medication measures [facility] December 18, 2023 12:41pm Increase knowledge regarding pain mgmt *Demonstrates understanding of teaching [place] December 18, 2023 1:22am Improved nutritional status [facility] December 18, 2023 12:41pm Adequate cardiac output *Maintains vital signs WNL *Maintains adequate urine output [facility] December 18, 2023 12:41pm Exhibits optimal GI function *Exhibits adequate intake and output *Exhibits adequate nutritional status [facility] December 18, 2023 12:41pm Maintain fluid and electroly te balance * Understands adequate fluid intake * Maintains vital signs WNL * Maintains optimal electrolyte values * Maintains balanced intake and output * Maintains BUN and Hct WNL * Maintains normal skin turgor [facility] December 18, 2023 12:41pm Adapt to partial or total vi asha loss * Uses corrective lenses * Performs ADL's * Uses safety measures [facility] December 18, 2023 12:41pm Maintain adequate fluid volu me * Maintains vital signs WNL * Maintains clear breath sounds * Exhibits decreasing edema * Maintains adequate intake and output * Maintains stable weight * Maintains optimal lab values [facility] December 18, 2023 12:41pm Maintains/improves level of orientation * Orients to person/place/time/situation [facility] December 18, 2023 12:41pm Verbalizes/Demonstrates Understanding *Demonstrates understanding of [facility] January 07, 2024 2:22pm Participate in Discharge Zoraida nning In order to achieve this outcome, the patient/ and or family will: * assist in identification of DME needs * assist in identification of community resource needs * assist in identification of appropriate discharge destination [facility] January 07, 2024 2: 22pm Develop pain management prog millicent In order to achieve this outcome the patient will: * Use the pain scale appropriately * Identify options for pain control - Analgesics - Narcotics - Non-medication measures [facility] January 06, 2024 5:08am Increase knowledge regarding pain mgmt *Demonstrates understanding of [facility], 2024 5:58pm Maintain an effective breath ing pattern * Maintains a patent airway * Maintains vital signs WNL * Maintains optimal breath sounds [facility] January 07, 2024 2: 22pm Maintain a patent airway * Performs deep breathing and coughing * Exhibits no adventitious breath sounds * Maintains adequate ventilation [facility] January 07, 2024 2:22pm Improved nutritional status [facility] January 07, 2024 2:22pm Exhibit intact skin * Skin remains intact [facility] January 07, 2024 2:22pm Remain free of injury *Follows Safety Interventions [facility] January 07, 2024 2:22pm Improved infection * Maintains vital signs WNL * Evidences no purulent drainage from wounds, incisions, and tubes * Maintains optimal lab values [facility] January 07, 2024 2:22p m Adequate cardiac output *Maintains vital signs WNL *Maintains adequate urine output [facility] January 06, 2024 5:08am Maintains or Improves Mobili ty Maintains mobility or exhibits improvement in mobility [facility] January 07, 2024 2:22pm Maintain fluid and electroly te balance * Understands adequate fluid intake * Maintains vital signs WNL * Maintains optimal electrolyte values * Maintains balanced intake and output * Maintains BUN and Hct WNL * Maintains normal skin turgor [facility] January 07, 2024 2:22p m Exhibits optimal GI function *Exhibits adequate intake and output *Exhibits adequate nutritional status [facility] January 07, 2024 2:22pm Maintains/improves level of orientation * Orients to person/place/time/situation [facility] January 07, 2024 2:22pm Maintain an effective breath ing pattern * Maintains a patent airway * Maintains vital signs WNL * Maintains optimal breath sounds [facility] February 16, 2024 10:54pm Maintain a patent airway * Performs deep breathing and coughing * Exhibits no adventitious breath sounds * Maintains adequate ventilation [facility] February 16, 2024 10:54pm Adapt to partial or total vi asha loss * Uses corrective lenses * Performs ADL's * Uses safety measures [facility] February 16, 2024 10:54pm Adequate cardiac output *Maintains vital signs WNL *Maintains adequate urine output [facility] February 16, 2024 10:54pm Exhibit intact skin * Skin remains intact [facility] February 16, 2024 10:54pm Maintains or Improves Mobili ty Maintains mobility or exhibits improvement in mobility [facility] February 16, 2024 10:54pm Exhibit no sign of aspiratio n * Maintains patent airway *No coughing or choking with intake [facility] February 16, 2024 10:54pm Remain Free of Seizure Activ ity [facility] February 16, 2024 10:54pm Improved infection * Maintains vital signs WNL * Evidences no purulent drainage from wounds, incisions, and tubes * Maintains optimal lab values [facility] February 16, 2024 10:54pm Verbalizes/Demonstrates Understanding *Demonstrates understanding of [facility] February 16, 2024 10:54pm Participate in Discharge Zoraida nning In order to achieve this outcome, the patient/ and or family will: * assist in identification of DME needs * assist in identification of community resource needs * assist in identification of appropriate discharge destination [facility] February 16, 2024 10:54pm Develop pain management prog millicent In order to achieve this outcome the patient will: * Use the pain scale appropriately * Identify options for pain control - Analgesics - Narcotics - Non-medication measures [facility] February 16, 2024 10:54pm Increase knowledge regarding pain mgmt *Demonstrates understanding of [facility] February 16, 2024 10:54pm Improved nutritional status [facility] February 16, 2024 10:54pm Maintain adequate fluid volu me * Maintains vital signs WNL * Maintains clear breath sounds * Exhibits decreasing edema * Maintains adequate intake and output * Maintains stable weight * Maintains optimal lab values [facility] February 15, 2024 3:40pm Verbalizes/Demonstrates Understanding *Demonstrates understanding of [facility] April 03, 2024 2:52pm Participate in Discharge Zoraida nning In order to achieve this outcome, the patient/ and or family will: * assist in identification of DME needs * assist in identification of community resource needs * assist in identification of appropriate discharge destination [facility] April 03, 2024 2 :52pm Develop pain management prog millicent In order to achieve this outcome the patient will: * Use the pain scale appropriately * Identify options for pain control - Analgesics - Narcotics - Non-medication measures [facility] April 03, 2024 2:52pm Increase knowledge regarding pain mgmt *Demonstrates understanding of [facility] April 03, 2024 2:52pm Remain free of injury *Follows Safety Interventions [facility] April 03, 2024 2:52p m Maintain an effective breath ing pattern * Maintains a patent airway * Maintains vital signs WNL * Maintains optimal breath sounds [facility] April 03, 2024 2 :52pm Improved infection * Maintains vital signs WNL * Evidences no purulent drainage from wounds, incisions, and tubes * Maintains optimal lab values [facility] April 03, 2024 2:52 pm Show improved communication ability * Demonstrates increased ability to understand and communicate needs [facility] April 03, 2024 2: 52pm Maintain a patent airway * Performs deep breathing and coughing * Exhibits no adventitious breath sounds * Maintains adequate ventilation [facility] April 03, 2024 2:52pm Exhibit intact skin * Skin remains intact [facility] April 03, 2024 2:52pm Maintains or Improves Mobili ty Maintains mobility or exhibits improvement in mobility [facility] April 03, 2024 2:52pm Improved nutritional status [facility] April 03, 2024 2:52pm Maintains/improves level of orientation * Orients to person/place/time/situation [facility] April 03, 2024 2:52pm Exhibits intact oral mucosa * Demonstrates appropriate oral hygiene [facility] April 03, 2024 2:52pm Adequate cardiac output *Maintains vital signs WNL *Maintains adequate urine output [facility] April 03, 2024 2: 52pm Maintain adequate fluid volu me * Maintains vital signs WNL * Maintains clear breath sounds * Exhibits decreasing edema * Maintains adequate intake and output * Maintains stable weight * Maintains optimal lab values [facility] April 03, 2024 2:52 pm Exhibit no sign of aspiratio n * Maintains patent airway *No coughing or choking with intake [facility] April 03, 2024 2:52pm Hospital Discharge Instructions Additional Instructions Tube feed as previously ordered Midline in place. Remove midline once IV antibiotics are completed. Stop date 04/05/2024 Consultation Note Author Cam Ramos [facility] April 02, 2024 6:17pm Note Date/Time April 02, 2024 6 :14pm [facility] [address] [facility] [address] [place], [place] [id number] Neurology Consult Note Signed Patient: Bi Tabor MR#: [id number] 43 : 1960 Acct:[id number] Age: 64 ADM Date: 03/31/24 Loc: [facility] Attending Dr: Zeferino Morfin M.D. cc: Lauro, Burke OLSEN; Shakila Hernandez PA-C; Zeferino Morfin MD~ Assessment and Plan Assessment and plan (1) History of multiple strokes: Code(s): Z86.73 - Personal history of transient ischemic attack (TIA), and cerebral infarction without residual deficits Status: Chronic (2) Intractable seizure disorder: Code(s): G40.919 - Epilepsy, unspecified, intractable, without status epilepticus Status: Acute Plan The patient is on multiple anticonvulsants and fairly high dose of it however despite him being on Depakote 5000 mg a day his platelet count is [id number] at thistime. If he has developed mild thrombocytopenia of for this can be followed up. Is also on Vimpat 400 mg a day, and clobazam 10 mg a day and levetiracetam 1000 mg a day. I discussed with the hospitalist and they discussed limited options we have and suggested to see how he does and if he has any more seizureswe may have to discuss this with [facility] to see what options we can exercise. I shall be glad to assist. For now out suggest to continue the same medications. I noted a CT scan of the brain without contrast was performed did not show any acute abnormalities. Consult date: 04/02/24 HPI: Bi Tabor is a 64 year old male with history of intractable seizures, CVA presented to the hospital after having had seizure. Patient follows up at [facility]. He is on multiple medications. He was seen by me was was hospitalized on 02/21/2024. Current medications were reviewed. He is the in a half-way and has a tracheostomy in place , the urinary catheter andfeeding tube. Review of Systems Review of Systems: ROS unobtainable: Yes unobtainable due to medical condition PMFSH Past Medical History Medical History Benign prostatic hyperplasia Cerebrovascular accident Residual expressive aphasia, dysphagia, and left-sided weakness. Chronic obstructive pulmonary disease Deep venous thrombosis of upper extremity Esophageal diverticulum Gastroparesis Iron deficiency anemia Seizure disorder Vascular dementia with psychotic disturbance Surgical History Surgical History History of gastrostomy tube placement History of left above knee amputation History of tracheostomy Family History Family History Other Unknown family medical history Social History Social History Social History: Surrogate medical decision maker: Adriane Hilliard, sibling. Code status: Full code. 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 Additional gender identity comments: Never Spiritual care concerns: No Meds Home Medications and Allergies Home Medications Medication Instructions Recorded Confirmed Type metoprolol tartrate 25 mg tablet 25 mg feeding tube BID 12/18/22 03/30/24 History polyethylene glycol 3350 17 17 g feeding tube DAILY PRN 12/18/22 03/30/24 History gram/dose oral powder Constipation bisacodyl 10 mg rectal suppository 10 mg RECTAL DAILY PRN Constipation 02/11/23 03/30/24 History sennosides 8.6 mg tablet (senna) 8.6 mg feeding tube BID 02/11/23 03/30/24 History guaifenesin 100 mg/5 mL oral liquid 300 mg feeding tube BID PRN Cough 07/08/23 03/30/24 History magnesium hydroxide 400 mg/5 mL 30 ml PO HS PRN Constipation 12/13/23 03/30/24 History oral suspension (Milk of Magnesia) artificial tears solution eye drops 1 drp ophthalmic (eye) PRN PRN Dry 02/10/24 03/30/24 History Eye(S) atorvastatin 40 mg tablet 40 mg PO HS 02/10/24 03/30/24 History calcium carbonate 500 mg/5 mL (as 1,250 mg PO Q6H PRN Heartburn 02/10/24 03/30/24 History calcium carb 1,250 mg/5 mL) oral suspension clobazam 10 mg tablet 10 mg feeding tube DAILY 02/10/24 03/30/24 History famotidine 20 mg tablet 20 mg feeding tube BID 02/10/24 03/30/24 History folic acid 1 mg tablet 1 mg feeding tube DAILY 02/10/24 03/30/24 History ipratropium 0.5 mg-albuterol 3 mg 3 ml inhalation Q6H PRN Shortness 02/10/24 03/30/24 History (2.5 mg base)/3 mL nebulization Of Breath soln lacosamide 10 mg/mL oral solution 200 mg feeding tube BID 02/10/24 03/30/24 History levetiracetam 100 mg/mL oral 1,500 mg feeding tube BID 02/10/24 03/30/24 History solution magnesium citrate (Citroma oral 296 ml PO DAILY PRN Constipation 02/10/24 03/30/24 History solution) thiamine HCl (vitamin B1) 100 mg 100 mg feeding tube DAILY 02/10/24 03/30/24 History tablet valproic acid (as sodium salt) 250 1,250 mg feeding tube QID 02/10/24 03/30/24 History mg/5 mL oral solution acetaminophen 650 mg/20.3 mL oral 650 mg feeding tube Q4H PRN Pain 03/30/24 03/30/24 History suspension (Scale Score 1-3) apixaban 5 mg tablet (Eliquis) 5 mg feeding tube BID 03/30/24 03/30/24 History aspirin 81 mg chewable tablet 81 mg feeding tube DAILY 03/30/24 03/30/24 History Allergies Allergy/AdvReac Type Severity Reaction Status Date / Time clonazepam Allergy Unknown Unknown Verified 03/10/24 08:54 Vital Signs Vital Signs - 24 hr 04/01/24 20:00 04/01/24 20:45 04/01/24 20:00 Temperature 98.7 F Pulse Rate 87 84 Respiratory Rate 18 Blood Pressure 157/74 H Pulse Oximetry 96 96 Oxygen Delivery High Flow Therapy with Tr Oxygen Flow Rate 20 Fraction of Inspired Oxygen 40 04/01/24 20:00 04/01/24 22:00 04/02/24 00:00 Temperature 98.6 F Pulse Rate 87 82 83 Respiratory Rate 24 H Blood Pressure 155/77 H Pulse Oximetry 96 Oxygen Delivery Oxygen Flow Rate Fraction of Inspired Oxygen 04/02/24 00:00 04/02/24 00:00 04/02/24 02:00 Temperature Pulse Rate 81 83 Respiratory Rate Blood Pressure Pulse Oximetry 96 Oxygen Delivery High Flow Therapy with Tr Oxygen Flow Rate 20 Fraction of Inspired Oxygen 40 04/02/24 03:37 04/02/24 04:00 04/02/24 04:00 Temperature 98.4 F Pulse Rate 78 76 Respiratory Rate 20 Blood Pressure 128/72 Pulse Oximetry 96 95 Oxygen Delivery High Flow Therapy with Tr Oxygen Flow Rate 20 Fraction of Inspired Oxygen 40 04/02/24 06:00 04/02/24 08:00 04/02/24 09:18 Temperature 97.3 F L Pulse Rate 66 73 Respiratory Rate 22 H Blood Pressure 145/65 H Pulse Oximetry 97 97 Oxygen Delivery High Flow Therapy with Tr Oxygen Flow Rate 20 Fraction of Inspired Oxygen 40 04/02/24 12:00 04/02/24 08:00 04/02/24 12:00 Temperature 98.5 F Pulse Rate 74 Respiratory Rate 22 H Blood Pressure 147/72 H Pulse Oximetry 96 97 96 Oxygen Delivery High Flow Therapy with Tr High Flow Therapy with Tr Oxygen Flow Rate 20 20 Fraction of Inspired Oxygen 34 34 04/02/24 14:13 04/02/24 08:00 04/02/24 10:00 Temperature Pulse Rate 76 76 Respiratory Rate Blood Pressure Pulse Oximetry 96 Oxygen Delivery High Flow Therapy with Tr Oxygen Flow Rate 20 Fraction of Inspired Oxygen 35 04/02/24 12:00 04/02/24 14:00 04/02/24 14:32 Temperature Pulse Rate 74 79 Respiratory Rate Blood Pressure Pulse Oximetry 95 Oxygen Delivery High Flow Therapy with Na Oxygen Flow Rate 20 Fraction of Inspired Oxygen 28 04/02/24 16:00 04/02/24 16:00 04/02/24 16:20 Temperature Pulse Rate 87 Respiratory Rate Blood Pressure Pulse Oximetry 95 96 Oxygen Delivery High Flow Therapy with Tr High Flow Therapy with Tr Oxygen Flow Rate 20 20 Fraction of Inspired Oxygen 28 28 04/02/24 16:38 04/02/24 16:00 Temperature 98.2 F Pulse Rate 85 Respiratory Rate 22 H Blood Pressure 150/85 H Pulse Oximetry 96 98 Oxygen Delivery High Flow Therapy with Na Oxygen Flow Rate 20 Fraction of Inspired Oxygen 21 Exam Narrative: Patient appears sleepy difficult to evaluate. When I tried to wake him up he does not communicate. Left arm appears somewhat stiff compared to the right side. Both lower limbs are wrapped in. No involuntary movements were seen. Examination limited in view of his inability to cooperate much for a detailed neurological examination. Results Labs 04/02/24 05:35 04/02/24 05:35 Labs: Short CBC 04/02/24 Range/Units 05:35 WBC 6.8 (4.5-10.0) K/mm3 Hgb 12.3 L (14.0-18.0) g/dL Hct 37.9 L (42.0-52.0) % Plt Count 141 L (150-375) k/mm3 BMP 04/02/24 05:35 Sodium 140 Potassium 3.8 Chloride 109 H Carbon Dioxide 26 BUN 8 L Creatinine 0.40 L Glucose 113 H Calcium 8.7 Liver Function 04/02/24 Range/Units 05:35 Total Bilirubin 0.3 (0.2-1.3) mg/dL AST 32 (17-59) U/L ALT 17 (6-50) U/L Alkaline Phosphatase 81 (38-126) U/L Albumin 3.0 L (3.5-5.1) g/dL This report may have been done utilizing a voice recognition system. Attempts have been made to correct errors. However, there may be uncorrected grammatical,spelling, and recognition errors present. Report Initialized date/time: Cam Ramos MD 04/02/241813 Electronically signed by: Cam Ramos MD 04/02/241816 Discharge Summary Note Author Zeferino Morfin [facility] April 03, 2024 12:31pm Note Date/Time April 03, 2024 1 2:32pm [place] [id number] [place] [address] Discharge Summary Signed Patient: Bi Tabor MR#: [id number] 43 : 1960 Acct:[id number] Age: 64 ADM Date: 03/31/24 Loc: [facility] [id number]: Zeferino Morfin M.D. cc: Lauro, Burke OLSEN; Shakila Hernandez PA-C; Zeferino Morfin MD~ DS: Admitting Diagnosis Discharge Date 04/03/2024 Admitting Diagnosis Altered mental status DS: Discharge Diagnosis Discharge Diagnosis (1) Altered mental status: Qualifiers: Altered mental status type: unspecified Qualified Code(s): R41.82 - Altered mental status, unspecified Code(s): R41.82 - Altered mental status, unspecified Status: Acute (2) UTI (urinary tract infection): Qualifiers: Encounter type: initial encounter Indwelling urinary catheter type: indwelling urethral catheter Urinary tract infection type: catheter-associated UTI Qualified Code(s): T83.511A - Infection and inflammatory reaction due to indwelling urethral catheter, initial encounter; N39.0 - Urinary tract infection, site not specified Code(s): N39.0 - Urinary tract infection, site not specified Status: Acute (3) Rash of face: Code(s): R21 - Rash and other nonspecific skin eruption Status: Acute (4) Seizures: Code(s): R56.9 - Unspecified convulsions Status: Acute (5) Gastrojejunal tube present: Code(s): Z93.1 - Gastrostomy status Status: Acute DS: Summary Hospital Course Hospital Course: this is a 64-year-old male half-way resident presented with altered mental status. Patient an episode of unresponsiveness may have had focal seizure. . Patient is mostly nonverbal. Patient had similar episode in his prior admission for which he was transferred to [facility] for evaluation. Patient seemed to be back to his baseline status upon arrival to the ED and since then. Consulted Neurology for evaluation and appreciate their recommendations. Continue current medication which includes clobazam Keppra Vimpat and valproic acid. Follow with [facility] neurology as previously suggested His EKG without acute ST-T changes. CBC CMP was unremarkable. UA appeared infectious however does have chronic indwelling Jensen catheter. Culture has been sent. CT brain negative with no acute intracranial pathology. Given swelling of the face CT facial bone was performed which also did not show any acute abnormality with no facial bone fracture or soft tissue abnormality. CT chest obtained showed no obstruction of SVC, atelectasis / pneumonia in the right lung no other significant finding. Patient was started on meropenem for UTI. urine culture growing Morganella morganii. Sensitive to meropenem and Zosyn. Will continue meropenem for total 7 days. This was arranged to be done at his nursing facility Facial swelling etiology unclear cellulitis versus drug eruption. WBC is however normal. Bacteremia with Gram-positive cocci in clusters. Vancomycin has been initiated. Likely source possible cellulitis. Repeat blood culture pending. GPC clustersidentified as MSSC. meropenem will cover this and hence vancomycin will be stopped. He will continue on meropenem for 7 days course. Repeat blood culturehas been negative to date. Records from [facility] are getting retrieved with still is pending Chronic anemia however looks hemoconcentrated And on IV fluids for dehydration Recent tracheitis with multidrug resistant Pseudomonas on respiratory secretions. Patient has been placed on Airvo via tracheostomy. Continue pulmonary toilet as previously prescribed Status post G-tube placement and tube feeding Seizure disorder on clobazam Keppra Vimpat valproic acid Left AKA Chronic respiratory failure Tracheostomy in place COPD DVT prophylaxis apixaban code status: full code Time Spent with Patient Time attestation: Total time spent providing and/or coordinating discharge services: 45 minutes Exam Narrative: GENERAL: Chronically ill-appearing, non-toxic, in no acute distress. HEAD: Normocephalic, atraumatic. RESPIRATORY: Airway patent, respirations nonlabored. Some scattered rhonchi, otherwise relatively clear to auscultation bilaterally. Tracheostomy in place without drainage, secretions, surrounding erythema. CARDIOVASCULAR: Regular rate and rhythm without murmurs, rubs, or gallops. ABDOMINAL: Abdomen is somewhat firm, but no appreciable focal tenderness, nondistended. Normoactive BS. MUSCULOSKELETAL: Moves all extremities. Left AKA. Mild swelling noted throughout upper extremities. SKIN: Warm, dry, normal color. NEURO: Alert, answers yes/no to some questions. Speech soft and somewhat difficult to understand at times. Follows some commands. No ataxic movements. No appreciable seizure like activity. PSYCHIATRIC: Appropriate mood and affect. Normal interaction. DS: Data Data Completed and Pending Labs on day of discharge: Preliminary micro results at discharge 04/01/24 14:09 Blood Culture - Preliminary Blood 04/01/24 14:04 Blood Culture - Preliminary Blood 03/30/24 00:05 Blood Culture - Preliminary Blood Staphylococcus capitis Imaging Radiologist's impression: ITS Impressions Head CT 03/29/24 17:58 IMPRESSION: No acute intracranial findings. Head/Cervical Spine/Facial Bones CT 03/29/24 19:25 IMPRESSION: Old fracture in the medial wall of the left orbit. Pansinusitis. Soft tissue density in the right maxillary sinus is not excluded. Clinical correlation advised. Sclerotic area in the lower mandible. Follow-up advised. ----- -- CT facial & cervical spine wo Ordering provider: Shakila Hernandez PA-C History: . sz, unknown fall, redness/swelling to face . Comparison: None. Technique: CT of the cervical spine was performed without contrast. Sagittal and coronal reformatted images were also obtained and reviewed. Automated exposure control and iterative reconstruction technique were employed. The dose-length product was 462.59 mGy-cm. FINDINGS: VERTEBRAE: No subluxation or acute fracture. The occipital condyles are intact. Chronic loss of volume of C6 and C5 is noted. DISC SPACES: Narrowing of the disc space at the level of C5-C6 and C6-C7 multilevel facet joint disease. Multilevel uncovertebral joint osteoarthritic changes. Mild spinal canal stenosis at the level of C5-C6 and C6-C7 with narrowing of the foramina. PARASPINOUS SOFT TISSUES: Normal. IMPRESSION: No acute osseous abnormality cervical spine. Chest CT 03/29/24 20:03 IMPRESSION: No evidence of occlusion seen in the superior vena cava. Atelectasis versus pneumonia in the right upper and middle lobes posteriorly. Minimal atelectatic changes in the lower lobes. Discharge Plan Discharge Attending physician on discharge: Zeferino Morfin Consulting providers: Cam Ramos Discharging Clinician: Zeferino Morfin Anticipated Discharge Date/Time: 04/03/24 12:26 Patient Disposition: SNF Activity: as tolerated Diet: NPO and tube feeding Discharge Instructions: Tube feed as previously ordered Midline in place. Remove midline once IV antibiotics are completed. Stop date 04/05/2024 Patient Instructions: Apixaban (By mouth) Stand Alone Forms: General Discharge Information Follow-up/Referrals: Lauro,MD Burke [Primary Care Provider] - 1 Week Cam Ramos MD [Physician] - 4 Weeks Discharge Medications: New meropenem 1 gram Recon Soln 1 g IV Q8H Qty: 8 0RF Continued bisacodyl 10 mg Suppository 10 mg RECTAL DAILY PRN (Reason: Constipation) Rx Instructions: if no results for MOM sennosides [senna] 8.6 mg Tablet 8.6 mg feeding tube BID guaifenesin 100 mg/5 mL liquid 300 mg feeding tube BID PRN (Reason: Cough) magnesium hydroxide [Milk of Magnesia] 400 mg/5 mL Suspension 30 ml PO HS PRN (Reason: Constipation) Rx Instructions: If no BM in 3 days polyethylene glycol 3350 17 gram/dose powder 17 g feeding tube DAILY PRN (Reason: Constipation) metoprolol tartrate 25 mg tablet 25 mg feeding tube BID atorvastatin 40 mg tablet 40 mg PO HS ipratropium-albuterol 0.5 mg-3 mg(2.5 mg base)/3 mL solution for nebulization 3 ml INHALATION Q6H PRN (Reason: Shortness Of Breath) artificial tears solution Drops 1 drp OPHTHALMIC (EYE) PRN PRN (Reason: Dry Eye(S)) Rx Instructions: instill 1 drop per eye as needed for dry eye thiamine HCl (vitamin B1) 100 mg Tablet 100 mg feeding tube DAILY famotidine 20 mg tablet 20 mg feeding tube BID valproic acid (as sodium salt) 250 mg/5 mL solution 1,250 mg feeding tube QID magnesium citrate [Citroma] Solution 296 ml PO DAILY PRN (Reason: Constipation) Rx Instructions: if no results from enema folic acid 1 mg tablet 1 mg feeding tube DAILY levetiracetam 100 mg/mL solution 1,500 mg feeding tube BID calcium carbonate 500 mg/5 mL (1,250 mg/5 mL) Suspension 1,250 mg PO Q6H PRN (Reason: Heartburn) lacosamide 10 mg/mL solution 200 mg feeding tube BID clobazam 10 mg tablet 10 mg feeding tube DAILY Eliquis 5 mg Tablet 5 mg feeding tube BID aspirin 81 mg Tablet,Chewable 81 mg feeding tube DAILY acetaminophen 650 mg/20.3 mL Suspension 650 mg feeding tube Q4H PRN (Reason: Pain (Scale Score 1-3)) Date of admission: 03/31/24 10:54 Primary Care Provider: Burke Escalera Admitting Provider: Rachel Roach Attending physician on admission: Zeferino Morfin Condition: Stable This report may have been done utilizing a voice recognition system. Attempts have been made to correct errors. However, there may be uncorrected grammatical, spelling, and recognition errors present. Report Initialized date/time: Zeferino Morfin MD 04/03/24 / 1232 Electronically signed by: Zeferino Morfin MD 04/03/24 1231 History & Physical Note Author Rachel Roach [facility] March 30, 2024 5:17am Note Date/Time March 30, 2024 1 2:01[place] [address] [place] [address] History & Physical Report Signed Patient: Bi Tabor MR#: [id number] 43 : 1960 Acct:[id number] Age: 64 ADM Date: 03/29/24 Loc: [facility] [id number]: Rachel Roach D.O. cc: JagjitBurke MD; Shakila Hernandez PA-C; Rachel Roach DO~ H&P: HPI History of Present Illness Date/Time: 03/29/24 23:15 Chief Complaint: Change in mental status for couple of days Narrative: 63-year-old male with past medical history of CVA, chronic respiratory failure status post tracheostomy and PEG tube, seizure disorder, dementia with psychoticdisturbance and BPH with chronic indwelling Jensen catheter who presented to the ER from [facility] due to altered mental status for couple of days. jail staff noted that today the patient had episode of unresponsiveness that they thought may have been a seizure. In the ER initially the patient was nodding yes when asked questions. He then varied between just being awake and staring straight ahead and not following command or sleeping. The ER provider stated that the patient had had prior admissions for pulling out his G-tube and other behaviors at staff were suspicious the patient may have been doing on purpose to be brought to the hospital. But half-way did not mention any such behaviors this visit. The patient was afebrile and had a normal white count. His urine was suspicious for possible UTI. His hemoglobin was up 3 grams compared to his prior hospital stay. Patient was noted to have a yellowish flaking rash on the face with some equipment cleaner and tester slightly pink skin underneath, no overt erythema, patient's face appeared full lower than when I had previously admitted the patient in the past. His bilateral hands seemed mildly edematous. Patient was not withdrawing from noxious stimuli but would grimace. He was essentially unable to provide any history. Thusly, HPI was obtained from half-way report, ER provider documentation nursing report and review of past medical records. During prior hospitalization it was thought the patient may be having some subclinical or focal seizures. The patient was transferred to [facility] for evaluation and continuous EEG. Those records are not available for my review. Records were requested. Review of Systems Review of Systems: ROS unobtainable: Yes unobtainable due to medical condition(Tracheostomy) and unobtainable due to mental status PMFSH Past Medical History Medical History Benign prostatic hyperplasia Cerebrovascular accident Residual expressive aphasia, dysphagia, and left-sided weakness. Chronic obstructive pulmonary disease Deep venous thrombosis of upper extremity Esophageal diverticulum Gastroparesis Iron deficiency anemia Seizure disorder Vascular dementia with psychotic disturbance Surgical History Surgical History History of gastrostomy tube placement History of left above knee amputation History of tracheostomy Family History Family History Other Unknown family medical history Social History Social History Social History: Surrogate medical decision maker: Adriane Babak, sibling. Code status: Full code. 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 Additional gender identity comments: Never Spiritual care concerns: No Meds Home Medications and Allergies Home Medications Medication Instructions Recorded Confirmed Type metoprolol tartrate 25 mg tablet 25 mg feeding tube BID 12/18/22 03/30/24 History polyethylene glycol 3350 17 17 g feeding tube DAILY PRN 12/18/22 03/30/24 History gram/dose oral powder Constipation bisacodyl 10 mg rectal suppository 10 mg RECTAL DAILY PRN Constipation 02/11/23 03/30/24 History sennosides 8.6 mg tablet (senna) 8.6 mg feeding tube BID 02/11/23 03/30/24 History guaifenesin 100 mg/5 mL oral liquid 300 mg feeding tube BID PRN Cough 07/08/23 03/30/24 History magnesium hydroxide 400 mg/5 mL 30 ml PO HS PRN Constipation 12/13/23 03/30/24 History oral suspension (Milk of Magnesia) artificial tears solution eye drops 1 drp ophthalmic (eye) PRN PRN Dry 02/10/24 03/30/24 History Eye(S) atorvastatin 40 mg tablet 40 mg PO HS 02/10/24 03/30/24 History calcium carbonate 500 mg/5 mL (as 1,250 mg PO Q6H PRN Heartburn 02/10/24 03/30/24 History calcium carb 1,250 mg/5 mL) oral suspension clobazam 10 mg tablet 10 mg feeding tube DAILY 02/10/24 03/30/24 History famotidine 20 mg tablet 20 mg feeding tube BID 02/10/24 03/30/24 History folic acid 1 mg tablet 1 mg feeding tube DAILY 02/10/24 03/30/24 History ipratropium 0.5 mg-albuterol 3 mg 3 ml inhalation Q6H PRN Shortness 02/10/24 03/30/24 History (2.5 mg base)/3 mL nebulization Of Breath soln lacosamide 10 mg/mL oral solution 200 mg feeding tube BID 02/10/24 03/30/24 History levetiracetam 100 mg/mL oral 1,500 mg feeding tube BID 02/10/24 03/30/24 History solution magnesium citrate (Citroma oral 296 ml PO DAILY PRN Constipation 02/10/24 03/30/24 History solution) thiamine HCl (vitamin B1) 100 mg 100 mg feeding tube DAILY 02/10/24 03/30/24 History tablet valproic acid (as sodium salt) 250 1,250 mg feeding tube QID 02/10/24 03/30/24 History mg/5 mL oral solution acetaminophen 650 mg/20.3 mL oral 650 mg feeding tube Q4H PRN Pain 03/30/24 03/30/24 History suspension (Scale Score 1-3) apixaban 5 mg tablet (Eliquis) 5 mg feeding tube BID 03/30/24 03/30/24 History aspirin 81 mg chewable tablet 81 mg feeding tube DAILY 03/30/24 03/30/24 History Allergies Allergy/AdvReac Type Severity Reaction Status Date / Time clonazepam Allergy Unknown Unknown Verified 03/10/24 08:54 Vital Signs Vital Signs - 24 hr 03/29/24 15:35 03/29/24 15:44 03/29/24 16:44 Temperature 97.5 F L Pulse Rate 101 H 98 104 H Respiratory Rate 20 19 Blood Pressure 120/96 H 108/78 Pulse Oximetry 100 98 Oxygen Delivery Non-Rebreather Mask Oxygen Flow Rate 15 03/29/24 18:13 03/29/24 19:44 03/29/24 21:59 Temperature Pulse Rate 98 90 77 Respiratory Rate 14 17 15 Blood Pressure 164/84 H 112/82 98/72 L Pulse Oximetry 99 99 100 Oxygen Delivery Oxygen Flow Rate 03/29/24 23:08 Temperature Pulse Rate Respiratory Rate Blood Pressure 144/79 H Pulse Oximetry Oxygen Delivery Oxygen Flow Rate Exam Narrative: Weight 100 kg BMI 31.6 Const: Other: Well-developed, well-nourished, lying bed flat, trach collar in place with in- line suction HENMT: Other: Trach collar in place with in-line suction, mucous membranes are moist, dentition fair but exam limited crowded oropharynx, appears to be seborrheic dermatitis cross the eyebrow does and in the T zone with biter pigmented skin and in the T zone, head is normocephalic atraumatic Eyes: Other: Pupils are equal and reactive but exam is difficult as the patient will only open his eyes minimally and when I try to complete the exam he will close his eyes tightly in clench them, no conjunctival pallor no scleral icterus Neck: Other: Trach collar with in-line suction in place Resp: Other: Nonlabored, some upper airway transmission but no crackles at the base Cardio: Other: Regular rate, regular rhythm, 2+ bilateral radial pulses GI: Other: Firm but nondistended, normoactive bowel sounds, peg tube in place, dried flaking skin across the abdominal wall, no underlying rash or erythema : Other: Jensen catheter in place cloudy urine present Urinary Catheter: Urinary Catheter: patent and draining Skin: Other: Please see note about skin changes in the T zone pattern seems consistent with seborrheic dermatitis, dried flaking skin across the abdominal wall, no wounds to the right lower extremity or foot Neuro: Other: Patient has increased tone of bilateral hands, patient actively resists examination of the eyes, patient either cannot or will not for this patent oral exam but I was able to open the patient's mouth for evaluation, patient does have active cough reflex with suctioning through in like trachea collar Extrem: Other: Left above the knee amputation stump site in good condition, no wounds to the right lower extremity the foot and ankle are in a waffle boot Psych: Other: Unable to assess H&P: Results Labs Labs: Laboratory Tests 03/29/24 15:55 03/29/24 15:55 03/29/24 03/29/24 03/29/24 15:55 16:58 17:19 WBC 8.4 RBC 4.63 Hgb 15.3 D Hct 45.0 MCV 97.2 MCH 33.0 MCHC 34.0 RDW 13.6 Plt Count 151 D MPV 12.5 H Immature Gran % (Auto) 0.1 Neut % (Auto) 42.6 L Lymph % (Auto) 42.2 [place] % (Auto) 8.3 Eos % (Auto) 6.4 H Baso % (Auto) 0.4 Lymph # (Auto) 3.55 H [place] # (Auto) 0.7 H Eos # (Auto) 0.5 H Baso # (Auto) 0.0 Abs Immat Gran (auto) 0.01 Absolute Neuts (auto) 3.6 Absolute Nucleated RBC 0.000 Nucleated RBC % 0.0 PT 13.7 INR 1.0 APTT 27.4 Puncture Site ABG pH ABG pCO2 ABG pO2 ABG PO2/FiO2 Ratio ABG HCO3 ABG O2 Saturation ABG O2 Content ABG Base Excess A-a Gradient Oxyhemoglobin Carboxyhemoglobin Methemoglobin Reduced Hemoglobin Total Hemoglobin O2 Delivery Device O2 Liters/Min FiO2 Sodium 140 Potassium 4.6 Chloride 102 Carbon Dioxide 30 Anion Gap 8 BUN 14 Creatinine 0.70 Estim Creat Clear Calc 110 Estimated GFR > 60 Glucose 98 Lactic Acid 1.4 Calcium 9.8 Total Bilirubin 0.3 AST 39 ALT 27 Alkaline Phosphatase 102 Total Protein 8.0 Albumin 3.9 Urine Color Yellow Urine Appearance Cloudy H Urine pH 8.5 Ur Specific [place] 1.017 Urine Protein Trace Urine Glucose (UA) Negative Urine Ketones Negative Ur Blood (Man) 1+ H Urine Nitrate Positive H Urine Bilirubin Negative Urine Urobilinogen 1.0 Add Ur Microanalysis Reviewed Leukocyte Esterase Rfl 2+ H Urine RBC 21-50 H Urine WBC 51-100 H Ur Squamous Epith Cells None seen Amorphous Sediment Few H Urine Bacteria 4+ H Urine Casts 11-20 Hyaline Casts Present Valproic Acid 117.2 03/29/24 19:40 WBC RBC Hgb Hct MCV MCH MCHC RDW Plt Count MPV Immature Gran % (Auto) Neut % (Auto) Lymph % (Auto) [place] % (Auto) Eos % (Auto) Baso % (Auto) Lymph # (Auto) [place] # (Auto) Eos # (Auto) Baso # (Auto) Abs Immat Gran (auto) Absolute Neuts (auto) Absolute Nucleated RBC Nucleated RBC % PT INR APTT Puncture Site Right radial ABG pH 7.410 ABG pCO2 44.4 ABG pO2 76.4 L ABG PO2/FiO2 Ratio 0.85 ABG HCO3 27.5 H ABG O2 Saturation 95.4 ABG O2 Content 18.0 ABG Base Excess 2.4 A-a Gradient 519.8 Oxyhemoglobin 94.0 Carboxyhemoglobin 0.4 Methemoglobin 0.2 Reduced Hemoglobin 5.4 H Total Hemoglobin 13.6 O2 Delivery Device Non-rebreather mask O2 Liters/Min 15.0 FiO2 90 Sodium Potassium Chloride Carbon Dioxide Anion Gap BUN Creatinine Estim Creat Clear Calc Estimated GFR Glucose Lactic Acid Calcium Total Bilirubin AST ALT Alkaline Phosphatase Total Protein Albumin Urine Color Urine Appearance Urine pH Ur Specific [place] Urine Protein Urine Glucose (UA) Urine Ketones Ur Blood (Man) Urine Nitrate Urine Bilirubin Urine Urobilinogen Add Ur Microanalysis Leukocyte Esterase Rfl Urine RBC Urine WBC Ur Squamous Epith Cells Amorphous Sediment Urine Bacteria Urine Casts Hyaline Casts Valproic Acid Impressions Head CT 03/29/24 17:58 IMPRESSION: No acute intracranial findings. Head/Cervical Spine/Facial Bones CT 03/29/24 19:25 IMPRESSION: Old fracture in the medial wall of the left orbit. Pansinusitis. Soft tissue density in the right maxillary sinus is not excluded. Clinical correlation advised. Sclerotic area in the lower mandible. Follow-up advised. ----- -- CT facial & cervical spine wo Ordering provider: Shakila Hernandez PA-C History: . sz, unknown fall, redness/swelling to face . Comparison: None. Technique: CT of the cervical spine was performed without contrast. Sagittal and coronal reformatted images were also obtained and reviewed. Automated exposure control and iterative reconstruction technique were employed. The dose-length product was 462.59 mGy-cm. FINDINGS: VERTEBRAE: No subluxation or acute fracture. The occipital condyles are intact. Chronic loss of volume of C6 and C5 is noted. DISC SPACES: Narrowing of the disc space at the level of C5-C6 and C6-C7 multilevel facet joint disease. Multilevel uncovertebral joint osteoarthritic changes. Mild spinal canal stenosis at the level of C5-C6 and C6-C7 with narrowing of the foramina. PARASPINOUS SOFT TISSUES: Normal. IMPRESSION: No acute osseous abnormality cervical spine. Chest CT 03/29/24 20:03 IMPRESSION: No evidence of occlusion seen in the superior vena cava. Atelectasis versus pneumonia in the right upper and middle lobes posteriorly. Minimal atelectatic changes in the lower lobes. Assessment and Plan Assessment and plan (1) Altered mental status: Qualifiers: Altered mental status type: unspecified Qualified Code(s): R41.82 - Altered mental status, unspecified Code(s): R41.82 - Altered mental status, unspecified Status: Acute (2) UTI (urinary tract infection): Qualifiers: Encounter type: initial encounter Indwelling urinary catheter type: indwelling urethral catheter Urinary tract infection type: catheter-associated UTI Qualified Code(s): T83.511A - Infection and inflammatory reaction due to indwelling urethral catheter, initial encounter; N39.0 - Urinary tract infection, site not specified Code(s): N39.0 - Urinary tract infection, site not specified Status: Acute (3) Rash of face: Code(s): R21 - Rash and other nonspecific skin eruption Status: Acute (4) Seizures: Code(s): R56.9 - Unspecified convulsions Status: Acute (5) Gastrojejunal tube present: Code(s): Z93.1 - Gastrostomy status Status: Acute Plan High patient has had change in mental status. Is unclear if he may have had breakthrough seizure in be in postictal state OR if he may be more somnolent less responsive due to an infection. The patient had been transferred to [facility] during his prior hospitalization for evaluation of possible status epilepticus, subclinical seizures/focal seizures. The results of that hospital stay and intervention Neurontin known. Will request records. As of right now patient does not appear to be actively seizing. He does not have a white count but his urine is suggestive of possible catheter associated UTI. The patient does have a history of pseudomonal UTI is relatively pansensitive. I was told that the patient's Jensen catheter was exchanged in the ER. He will be placed on empiric Antibiotic therapy with meropenem while cultures are pending. Will continue patient's home seizure medications and monitor neuro checks. Patient's hemoglobin is significantly increased from recent discharge volume in January. Patient may be mildly dehydrated which could also be playing a component in his change in mental status/encephalopathy. Will start maintenanceIV fluids. Patient does have some rash to his face but has some spider pigmented areas and some pink somewhat erythematous edges that area of his face seems a bit harmon but there is no crepitus or evidence of acute injury. Skin changes to me seem most consistent with seborrheic dermatitis. Will monitor. The patient did have recent tracheitis with multidrug resistant Pseudomonas but patient's tracheal secretions appear normal at this time. Patient is breathing well and is not requiring oxygen. Trach collar is in place with in-line suctionas patient often times does not tolerate intermittent rescue suctioning during prior hospitalizations. Will continue p.r.n. nebulizers. Will continue G-tube feeds with free water flushes per half-way regimen. Patient has been admitted as observation status. Quality VTE Prophylaxis VTE prophylaxis: pharmacologic ordered (Will continue home Eliquis) Hospitalist MIPS Advance Care Plan I have confirmed that the patient's Advanced Care Plan is present, code status is documented, or surrogate decision maker is listed in patient medical record.:Yes Medication Reconciliation I have utilized all available resources to obtain, update and review the patients current medications (includes all prescriptions, OTC, herbals, cannabis, and nutritional supplements).: Yes This report may have been done utilizing a voice recognition system. Attempts have been made to correct errors. However, there may be uncorrected grammatical,spelling, and recognition errors present. Report Initialized date/time: Rachel Roach DO 03/30/24 0001 Electronically signed by: Rachel Roach DO 03/30/24 0517 Progress Note Author Zina [facility] March 30, 2024 1:37am Note Date/Time March 29, 2024 7 :12pm [facility] [address] [place] [address] Emergency Room Visit Note Signed Patient: Bi Tabor MR#: [id number] 43 : 1960 Acct:[id number] Age: 64 ADM Date: 03/29/24 Loc: [facility] Attending Dr: cc: Lauro, Burke OLSEN; Shakila Hernandez PA-C; Zina Collado MD~ HPI - Altered Mental Status General Chief Complaint: Altered Mental Status <Shakila Hernandez PA-C - Last Filed: 03/30/24 01:22> Stated Complaint: AMS <Shakila Hernandez PA-C - Last Filed: 03/30/24 01:22> Time Seen by Provider: 03/29/24 17:11 <Shakila Hernandez PA-C - Last Filed: 03/30/24 01:22> Source: patient and old records reviewed <Shakila Hernandez PA-C - Last Filed:03/30/24 01:22> Mode of arrival: EMS <Shakila Hernandez PA-C - Last Filed: 03/30/24 01:22> Limitations: clinical condition <Shakila Hernandez PA-C - Last Filed: 03/30/24 01:22> History of Present Illness HPI narrative: Patient is a 64 y/o male, with PMH of chronic indwelling Jensen catheter, G-tube and trach dependence, epilepsy, CVA, TBI, L AKA, vascular dementia, who presents to the ED via EMS with report of AMS. Patient is a resident of [facility]. Per [place] staff, patient had an episode of unresponsiveness today and may have had a focal seizure. Patient does have history of seizure disorder and is on valproic acid. Patient is mostly nonverbal. When asked if he is having pain, he responds no. When asked if he feels at his baseline, he states yes. He doesnot report any other complaints. Patient is noted to have redness and swelling to his face which is also new. <Shakila Hernandez PA-C - Last Filed: 03/30/24 01:22> Related Data Home Medications: Home Medications Medication Instructions Recorded Confirmed metoprolol tartrate 25 mg tablet 25 mg PO BID 12/18/22 02/10/24 polyethylene glycol 3350 17 17 g feeding tube DAILY PRN 12/18/22 02/09/24 gram/dose oral powder Constipation bisacodyl 10 mg rectal suppository 10 mg RECTAL DAILY PRN Constipation 02/11/23 02/08/24 sennosides 8.6 mg tablet (senna) 8.6 mg feeding tube BID 02/11/23 02/10/24 guaifenesin 100 mg/5 mL oral liquid 600 mg feeding tube BID 07/08/23 02/09/24 magnesium hydroxide 400 mg/5 mL 30 ml PO HS PRN Constipation 12/13/23 02/10/24 oral suspension (Milk of Magnesia) acetaminophen 650 mg tablet 650 mg PO Q4H PRN general 01/02/24 02/08/24 discomfort lanolin alcohols-mineral 1 applic topical DAILY PRN Itching 02/09/24 02/09/24 oil-w.petrolatum-ceresin topical cream (Eucerin topical cream) pantoprazole 40 mg granules 40 mg PO DAILY 02/09/24 02/10/24 delayed-release for susp in packet (Protonix) artificial tears solution eye drops 1 drp ophthalmic (eye) PRN 02/10/24 02/10/24 aspirin 81 mg tablet 81 mg PO DAILY 02/10/24 02/10/24 atorvastatin 40 mg tablet 40 mg PO HS 02/10/24 02/10/24 calcium carbonate 500 mg/5 mL (as 1,250 mg PO Q6H PRN Heartburn 02/10/24 02/10/24 calcium carb 1,250 mg/5 mL) oral suspension clobazam 10 mg tablet 10 mg feeding tube DAILY 02/10/24 02/10/24 famotidine 20 mg tablet 20 mg feeding tube BID 02/10/24 02/10/24 ferrous sulfate 220 mg (44 mg 7.5 mg feeding tube DAILY 02/10/24 02/10/24 iron)/5 mL oral elixir folic acid 1 mg tablet 1 mg feeding tube DAILY 02/10/24 02/10/24 ibuprofen 100 mg/5 mL oral 600 mg PO QID PRN pain 02/10/24 02/10/24 suspension ipratropium 0.5 mg-albuterol 3 mg 3 ml inhalation Q6H PRN Shortness 02/10/24 02/10/24 (2.5 mg base)/3 mL nebulization Of Breath soln ketoconazole 2 % shampoo 1 ea topical WEEKLY 02/10/24 02/10/24 lacosamide 10 mg/mL oral solution 200 mg feeding tube BID 02/10/24 02/10/24 levetiracetam 100 mg/mL oral 2,000 mg feeding tube BID 02/10/24 02/10/24 solution lorazepam 2 mg/mL injection syringe 1 mg IV Q4H PRN Seizure Activity 02/10/24 02/10/24 magnesium citrate (Citroma oral 296 ml PO DAILY PRN Constipation 02/10/24 02/10/24 solution) metoclopramide HCl 10 mg tablet 10 mg feeding tube TIDWMEAL 02/10/24 02/10/24 sodium chloride 7 % for 1 inh inhalation TID 02/10/24 02/10/24 nebulization thiamine HCl (vitamin B1) 100 mg 100 mg feeding tube DAILY 02/10/24 02/10/24 tablet valproic acid (as sodium salt) 250 1,250 mg feeding tube QID 02/10/24 02/10/24 mg/5 mL oral solution <Shakila Hernandez PA-C - Last Filed: 03/30/24 01:22> Allergies/Adverse Reactions: Allergies Allergy/AdvReac Type Severity Reaction Status Date / Time clonazepam Allergy Unknown Unknown Verified 03/10/24 08:54 <Shakila Hernandez PA-C - Last Filed: 03/30/24 01:22> Review of Systems Review of Systems: All systems reviewed & are unremarkable except as noted in HPI. <Shakila Hernandez PA-C - Last Filed: 03/30/24 01:22> All systems reviewed & are unremarkable except as noted in HPI and below <Shakila Hernandez PA-C - Last Filed: 03/30/24 01:22> [facility] Past Medical History Medical History: Medical History Benign prostatic hyperplasia Cerebrovascular accident Residual expressive aphasia, dysphagia, and left-sided weakness. Chronic obstructive pulmonary disease Deep venous thrombosis of upper extremity Esophageal diverticulum Gastroparesis Iron deficiency anemia Seizure disorder Vascular dementia with psychotic disturbance <Shakila Hernandez PA-C - Last Filed: 03/30/24 01:22> Surgical History Surgical History: Surgical History History of gastrostomy tube placement History of left above knee amputation History of tracheostomy <Shakila Hernandez PA-C - Last Filed: 03/30/24 01:22> Family History Family History: Family History Other Unknown family medical history <Shakila Hernandez PA-C - Last Filed: 03/30/24 01:22> Social History Social History: Social History Social History: Surrogate medical decision maker: Adriane Hilliard, sibling. Code status: Full code. 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 HEAD: Normocephalic, atraumatic. Patient with diffuse swelling throughout his face and forehead, periorbital regions, erythema present. Some scaling of skin present. No significant focal rash or petechiae. RESPIRATORY: Airway patent, respirations nonlabored. Some scattered rhonchi, otherwise relatively clear to auscultation bilaterally. Tracheostomy in place without drainage, secretions, surrounding erythema. CARDIOVASCULAR: Regular rate and rhythm without murmurs, rubs, or gallops. ABDOMINAL: Abdomen is somewhat firm, but no appreciable focal tenderness, nondistended. Normoactive BS. MUSCULOSKELETAL: Moves all extremities. Left AKA. Mild swelling noted throughout upper extremities. SKIN: Warm, dry, normal color. NEURO: Alert, answers yes/no to some questions. Speech soft and somewhat difficult to understand at times. Follows some commands. No ataxic movements. No appreciable seizure like activity. PSYCHIATRIC: Appropriate mood and affect. Normal interaction. <Shakila Hernandez PA-C - Last Filed: 03/30/24 01:22> Course PROSTHETIC ASSISTANT/PA Physician Supervision I agree with midlevel documentation; I performed the medical decision making component of this evaluation. <Zina Collado MD - Last Filed: 03/30/24 01:37> Vital Signs Vital signs: Vital Signs Temperature 97.5 F L 03/29/24 15:35 Pulse Rate 101 H 03/29/24 15:35 Respiratory Rate 20 03/29/24 15:35 Blood Pressure 120/96 H 03/29/24 15:35 Pulse Oximetry 100 03/29/24 15:35 Oxygen Delivery Non-Rebreather Mask 03/29/24 15:35 Oxygen Flow Rate 15 03/29/24 15:35 Temperature 97.5 F L 03/29/24 15:35 Pulse Rate 67 03/30/24 01:24 Respiratory Rate 15 03/30/24 01:24 Blood Pressure 136/82 03/30/24 01:24 Pulse Oximetry 99 03/30/24 01:24 Oxygen Delivery Non-Rebreather Mask 03/29/24 15:35 Oxygen Flow Rate 15 03/29/24 15:35 <Shakila Hernandez PA-C - Last Filed: 03/30/24 01:22> Vital Signs Temperature 97.5 F L 03/29/24 15:35 Pulse Rate 101 H 03/29/24 15:35 Respiratory Rate 20 03/29/24 15:35 Blood Pressure 120/96 H 03/29/24 15:35 Pulse Oximetry 100 03/29/24 15:35 Oxygen Delivery Non-Rebreather Mask 03/29/24 15:35 Oxygen Flow Rate 15 03/29/24 15:35 Temperature 97.5 F L 03/29/24 15:35 Pulse Rate 67 03/30/24 01:24 Respiratory Rate 15 03/30/24 01:24 Blood Pressure 136/82 03/30/24 01:24 Pulse Oximetry 99 03/30/24 01:24 Oxygen Delivery Non-Rebreather Mask 03/29/24 15:35 Oxygen Flow Rate 15 03/29/24 15:35 <Zina Collado MD - Last Filed: 03/30/24 01:37> MDM - Altered Mental Status MDM Narrative Medical decision making narrative: Patient presented to ED with reports of altered mental status, possible seizure activity. Patient does history of seizure disorder. On valproic acid. Vital signs are stable upon arrival. Patient does not appear in any acute distress. He is able to answer yes/no to some questions, follows some commands.Valproic acid level is within therapeutic range here today. EKG is w/o acute ischemic changes. Basic laboratory studies are unremarkable. No significant abnormalities or changes from baseline. Patient is well-known to our facility. UA appears infectious. Patient does have chronic indwelling Jensen catheter. Sent for culture today. Will treat. CT brain negative. No acute intracranial pathology. Given swelling of face, CTfacial bones was also obtained and without acute abnormalities. No facial bone fracture. No abnormalities noted of soft tissues. CT of chest obtained to ruleout pathology such as superior vena cava syndrome. No obstruction of SVC noted. Atelectasis/pneumonia in right lung. No other significant findings. Meropenem started in the ED for UTI, previous positive urine cultures reviewed. Patient has had periods of unresponsiveness throughout ED stay. Unclear etiology. Could be focal seizures. Could be related to UTI. Unclear etiology of facial swelling. Differential includes cellulitis versus drug eruption? Normal WBC however. No new medications per med rec. No significant change w/ Benadryl. No TTP over face. Discussed case with Dr. Roach, hospitalist, regarding admission for further evaluation of altered mental status, IV antibiotics for UTI. Advised patient was recently transferred to [facility] for continuous EEG in January of this year. May need this again. Will request records. Dr. Piedra come down to ED to see patient and determine if able to stay here. Dr. Roach in ED to see patient. Accepted for admission to IMU. <Shakila Hernandez PA-C - Last Filed: 03/30/24 01:22> Medical Records Attestation: I reviewed the patient's medical records. <Shakila Hernandez PA-C - Last Filed: 03/30/24 01:22> Lab Data Attestation: I reviewed the patient's lab results. <Shakila Hernandez PA-C - Last Filed: 03/30/24 01:22> Result diagrams: 03/29/24 15:55 03/29/24 15:55 <Shakila Hernandez PA-C - Last Filed: 03/30/24 01:22> Labs: Lab Results 03/29/24 03/29/24 03/29/24 Range/Units 15:55 16:58 17:19 WBC 8.4 (4.5-10.0) K/mm3 RBC 4.63 (4.6-6.20) M/mm3 Hgb 15.3 D (14.0-18.0) g/dL Hct 45.0 (42.0-52.0) % MCV 97.2 (80-100) fl MCH 33.0 (26-34) pg MCHC 34.0 (32-36) g/dl RDW 13.6 (11.5-14.5) % Plt Count 151 D (150-375) k/mm3 MPV 12.5 H (7.4-10.4) fl Immature Gran % (Auto) 0.1 (0-0.5) % Neut % (Auto) 42.6 L (45.5-73.1) % Lymph % (Auto) 42.2 (18.3-44.2) % [place] % (Auto) 8.3 (2.6-8.5) % Eos % (Auto) 6.4 H (0-4.4) % Baso % (Auto) 0.4 (0.2-1.2) % Lymph # (Auto) 3.55 H (0.9-3.2) K/mm3 [place] # (Auto) 0.7 H (0.1-0.6) K/mm3 Eos # (Auto) 0.5 H (0-0.3) K/mm3 Baso # (Auto) 0.0 (0.0-0.1) K/mm3 Abs Immat Gran (auto) 0.01 (0.00-0.031) K/mm3 Absolute Neuts (auto) 3.6 (1.3-6.7) K/mm3 Absolute Nucleated RBC 0.000 (0.0-0.012) K/mm3 Nucleated RBC % 0.0 (0.0-0.2) % PT 13.7 (11.1-14.7) Seconds INR 1.0 APTT 27.4 (22.3-36.8) Seconds Methemoglobin (0-1.5) %THb Sodium 140 (137-145) mmol/L Potassium 4.6 (3.4-5.0) mmol/L Chloride 102 (98-107) mmol/L Carbon Dioxide 30 (22-30) mmol/L Anion Gap 8 (4-12) mmol/L BUN 14 (9-20) mg/dL Creatinine 0.70 (0.7-1.3) mg/dL Estim Creat Clear Calc 110 ml/min Estimated GFR > 60 (59 - ) Glucose 98 (65-110) mg/dL Lactic Acid 1.4 (0.7-2.0) mmol/L Calcium 9.8 (8.4-10.2) mg/dL Total Bilirubin 0.3 (0.2-1.3) mg/dL AST 39 (17-59) U/L ALT 27 (6-50) U/L Alkaline Phosphatase 102 (38-126) U/L Total Protein 8.0 (6.3-8.2) g/dL Albumin 3.9 (3.5-5.1) g/dL Urine Color Yellow (Yellow) Urine Appearance Cloudy H (Clear) Urine pH 8.5 (5.0-9.0) Ur Specific [place] 1.017 (1.001-1.035) Urine Protein Trace (Negative) mg/dL Urine Glucose (UA) Negative (Negative) mg/dL Urine Ketones Negative (Negative) mg/dL Ur Blood (Man) 1+ H (Negative) Urine Nitrate Positive H (Negative) Urine Bilirubin Negative (Negative) Urine Urobilinogen 1.0 (<2.0) mg/dL Add Ur Microanalysis Reviewed Leukocyte Esterase Rfl 2+ H (Negative) NOEL/UL Urine RBC 21-50 H (0-2) /hpf Urine WBC 51-100 H (0-3) /hpf Ur Squamous Epith Cells None seen (Few) /hpf Amorphous Sediment Few H (None) Urine Bacteria 4+ H /hpf Urine Casts 11-20 Hyaline Casts Present (None) /lpf Valproic Acid 117.2 (50-120) ug/mL 03/29/24 Range/Units 19:40 WBC (4.5-10.0) K/mm3 RBC (4.6-6.20) M/mm3 Hgb (14.0-18.0) g/dL Hct (42.0-52.0) % MCV (80-100) fl MCH (26-34) pg MCHC (32-36) g/dl RDW (11.5-14.5) % Plt Count (150-375) k/mm3 MPV (7.4-10.4) fl Immature Gran % (Auto) (0-0.5) % Neut % (Auto) (45.5-73.1) % Lymph % (Auto) (18.3-44.2) % [place] % (Auto) (2.6-8.5) % Eos % (Auto) (0-4.4) % Baso % (Auto) (0.2-1.2) % Lymph # (Auto) (0.9-3.2) K/mm3 [place] # (Auto) (0.1-0.6) K/mm3 Eos # (Auto) (0-0.3) K/mm3 Baso # (Auto) (0.0-0.1) K/mm3 Abs Immat Gran (auto) (0.00-0.031) K/mm3 Absolute Neuts (auto) (1.3-6.7) K/mm3 Absolute Nucleated RBC (0.0-0.012) K/mm3 Nucleated RBC % (0.0-0.2) % PT (11.1-14.7) Seconds INR APTT (22.3-36.8) Seconds Methemoglobin 0.2 (0-1.5) %THb Sodium (137-145) mmol/L Potassium (3.4-5.0) mmol/L Chloride (98-107) mmol/L Carbon Dioxide (22-30) mmol/L Anion Gap (4-12) mmol/L BUN (9-20) mg/dL Creatinine (0.7-1.3) mg/dL Estim Creat Clear Calc ml/min Estimated GFR (59 - ) Glucose (65-110) mg/dL Lactic Acid (0.7-2.0) mmol/L Calcium (8.4-10.2) mg/dL Total Bilirubin (0.2-1.3) mg/dL AST (17-59) U/L ALT (6-50) U/L Alkaline Phosphatase (38-126) U/L Total Protein (6.3-8.2) g/dL Albumin (3.5-5.1) g/dL Urine Color (Yellow) Urine Appearance (Clear) Urine pH (5.0-9.0) Ur Specific [place] (1.001-1.035) Urine Protein (Negative) mg/dL Urine Glucose (UA) (Negative) mg/dL Urine Ketones (Negative) mg/dL Ur Blood (Man) (Negative) Urine Nitrate (Negative) Urine Bilirubin (Negative) Urine Urobilinogen (<2.0) mg/dL Add Ur Microanalysis Leukocyte Esterase Rfl (Negative) NOEL/UL Urine RBC (0-2) /hpf Urine WBC (0-3) /hpf Ur Squamous Epith Cells (Few) /hpf Amorphous Sediment (None) Urine Bacteria /hpf Urine Casts Hyaline Casts (None) /lpf Valproic Acid (50-120) ug/mL <Shakila Hernandez PA-C - Last Filed: 03/30/24 01:22> Lab Results 03/29/24 03/29/24 03/29/24 Range/Units 15:55 16:58 17:19 WBC 8.4 (4.5-10.0) K/mm3 RBC 4.63 (4.6-6.20) M/mm3 Hgb 15.3 D (14.0-18.0) g/dL Hct 45.0 (42.0-52.0) % MCV 97.2 (80-100) fl MCH 33.0 (26-34) pg MCHC 34.0 (32-36) g/dl RDW 13.6 (11.5-14.5) % Plt Count 151 D (150-375) k/mm3 MPV 12.5 H (7.4-10.4) fl Immature Gran % (Auto) 0.1 (0-0.5) % Neut % (Auto) 42.6 L (45.5-73.1) % Lymph % (Auto) 42.2 (18.3-44.2) % [place] % (Auto) 8.3 (2.6-8.5) % Eos % (Auto) 6.4 H (0-4.4) % Baso % (Auto) 0.4 (0.2-1.2) % Lymph # (Auto) 3.55 H (0.9-3.2) K/mm3 [place] # (Auto) 0.7 H (0.1-0.6) K/mm3 Eos # (Auto) 0.5 H (0-0.3) K/mm3 Baso # (Auto) 0.0 (0.0-0.1) K/mm3 Abs Immat Gran (auto) 0.01 (0.00-0.031) K/mm3 Absolute Neuts (auto) 3.6 (1.3-6.7) K/mm3 Absolute Nucleated RBC 0.000 (0.0-0.012) K/mm3 Nucleated RBC % 0.0 (0.0-0.2) % PT 13.7 (11.1-14.7) Seconds INR 1.0 APTT 27.4 (22.3-36.8) Seconds Methemoglobin (0-1.5) %THb Sodium 140 (137-145) mmol/L Potassium 4.6 (3.4-5.0) mmol/L Chloride 102 (98-107) mmol/L Carbon Dioxide 30 (22-30) mmol/L Anion Gap 8 (4-12) mmol/L BUN 14 (9-20) mg/dL Creatinine 0.70 (0.7-1.3) mg/dL Estim Creat Clear Calc 110 ml/min Estimated GFR > 60 (59 - ) Glucose 98 (65-110) mg/dL Lactic Acid 1.4 (0.7-2.0) mmol/L Calcium 9.8 (8.4-10.2) mg/dL Total Bilirubin 0.3 (0.2-1.3) mg/dL AST 39 (17-59) U/L ALT 27 (6-50) U/L Alkaline Phosphatase 102 (38-126) U/L Total Protein 8.0 (6.3-8.2) g/dL Albumin 3.9 (3.5-5.1) g/dL Urine Color Yellow (Yellow) Urine Appearance Cloudy H (Clear) Urine pH 8.5 (5.0-9.0) Ur Specific [place] 1.017 (1.001-1.035) Urine Protein Trace (Negative) mg/dL Urine Glucose (UA) Negative (Negative) mg/dL Urine Ketones Negative (Negative) mg/dL Ur Blood (Man) 1+ H (Negative) Urine Nitrate Positive H (Negative) Urine Bilirubin Negative (Negative) Urine Urobilinogen 1.0 (<2.0) mg/dL Add Ur Microanalysis Reviewed Leukocyte Esterase Rfl 2+ H (Negative) NOEL/UL Urine RBC 21-50 H (0-2) /hpf Urine WBC 51-100 H (0-3) /hpf Ur Squamous Epith Cells None seen (Few) /hpf Amorphous Sediment Few H (None) Urine Bacteria 4+ H /hpf Urine Casts 11-20 Hyaline Casts Present (None) /lpf Valproic Acid 117.2 (50-120) ug/mL 03/29/24 Range/Units 19:40 WBC (4.5-10.0) K/mm3 RBC (4.6-6.20) M/mm3 Hgb (14.0-18.0) g/dL Hct (42.0-52.0) % MCV (80-100) fl MCH (26-34) pg MCHC (32-36) g/dl RDW (11.5-14.5) % Plt Count (150-375) k/mm3 MPV (7.4-10.4) fl Immature Gran % (Auto) (0-0.5) % Neut % (Auto) (45.5-73.1) % Lymph % (Auto) (18.3-44.2) % [place] % (Auto) (2.6-8.5) % Eos % (Auto) (0-4.4) % Baso % (Auto) (0.2-1.2) % Lymph # (Auto) (0.9-3.2) K/mm3 [place] # (Auto) (0.1-0.6) K/mm3 Eos # (Auto) (0-0.3) K/mm3 Baso # (Auto) (0.0-0.1) K/mm3 Abs Immat Gran (auto) (0.00-0.031) K/mm3 Absolute Neuts (auto) (1.3-6.7) K/mm3 Absolute Nucleated RBC (0.0-0.012) K/mm3 Nucleated RBC % (0.0-0.2) % PT (11.1-14.7) Seconds INR APTT (22.3-36.8) Seconds Methemoglobin 0.2 (0-1.5) %THb Sodium (137-145) mmol/L Potassium (3.4-5.0) mmol/L Chloride (98-107) mmol/L Carbon Dioxide (22-30) mmol/L Anion Gap (4-12) mmol/L BUN (9-20) mg/dL Creatinine (0.7-1.3) mg/dL Estim Creat Clear Calc ml/min Estimated GFR (59 - ) Glucose (65-110) mg/dL Lactic Acid (0.7-2.0) mmol/L Calcium (8.4-10.2) mg/dL Total Bilirubin (0.2-1.3) mg/dL AST (17-59) U/L ALT (6-50) U/L Alkaline Phosphatase (38-126) U/L Total Protein (6.3-8.2) g/dL Albumin (3.5-5.1) g/dL Urine Color (Yellow) Urine Appearance (Clear) Urine pH (5.0-9.0) Ur Specific [place] (1.001-1.035) Urine Protein (Negative) mg/dL Urine Glucose (UA) (Negative) mg/dL Urine Ketones (Negative) mg/dL Ur Blood (Man) (Negative) Urine Nitrate (Negative) Urine Bilirubin (Negative) Urine Urobilinogen (<2.0) mg/dL Add Ur Microanalysis Leukocyte Esterase Rfl (Negative) NEOL/UL Urine RBC (0-2) /hpf Urine WBC (0-3) /hpf Ur Squamous Epith Cells (Few) /hpf Amorphous Sediment (None) Urine Bacteria /hpf Urine Casts Hyaline Casts (None) /lpf Valproic Acid (50-120) ug/mL <Zina Collado MD - Last Filed: 03/30/24 01:37> ABG Data ABG results: 03/29/24 19:40 Puncture Site Right radial ABG pH 7.410 ABG pCO2 44.4 ABG pO2 76.4 L ABG PO2/FiO2 Ratio 0.85 ABG HCO3 27.5 H ABG O2 Saturation 95.4 ABG O2 Content 18.0 ABG Base Excess 2.4 A-a Gradient 519.8 Oxyhemoglobin 94.0 Carboxyhemoglobin 0.4 Reduced Hemoglobin 5.4 H Total Hemoglobin 13.6 O2 Delivery Device Non-rebreather mask O2 Liters/Min 15.0 FiO2 90 <Shakila Hernandez PA-C - Last Filed: 03/30/24 01:22> 03/29/24 19:40 Puncture Site Right radial ABG pH 7.410 ABG pCO2 44.4 ABG pO2 76.4 L ABG PO2/FiO2 Ratio 0.85 ABG HCO3 27.5 H ABG O2 Saturation 95.4 ABG O2 Content 18.0 ABG Base Excess 2.4 A-a Gradient 519.8 Oxyhemoglobin 94.0 Carboxyhemoglobin 0.4 Reduced Hemoglobin 5.4 H Total Hemoglobin 13.6 O2 Delivery Device Non-rebreather mask O2 Liters/Min 15.0 FiO2 90 <Zina Collado MD - Last Filed: 03/30/24 01:37> Attestation: I personally reviewed and interpreted this ABG as follows: <Shakila Hernandez PA-C - Last Filed: 03/30/24 01:22> Imaging Data Attestation: I personally reviewed and interpreted this imaging study as follows: <Shakila Hernandez PA-C - Last Filed: 03/30/24 01:22> Radiologist's impression: ITS Impressions Head CT 03/29/24 17:58 IMPRESSION: No acute intracranial findings. Head/Cervical Spine/Facial Bones CT 03/29/24 19:25 IMPRESSION: Old fracture in the medial wall of the left orbit. Pansinusitis. Soft tissue density in the right maxillary sinus is not excluded. Clinical correlation advised. Sclerotic area in the lower mandible. Follow-up advised. ----- -- CT facial & cervical spine wo Ordering provider: Shakila Hernandez PA-C History: . sz, unknown fall, redness/swelling to face . Comparison: None. Technique: CT of the cervical spine was performed without contrast. Sagittal and coronal reformatted images were also obtained and reviewed. Automated exposure control and iterative reconstruction technique were employed. The dose-length product was 462.59 mGy-cm. FINDINGS: [place]: No subluxation or acute fracture. The occipital condyles are intact. Chronic loss of volume of C6 and C5 is noted. DISC SPACES: Narrowing of the disc space at the level of C5-C6 and C6-C7 multilevel facet joint disease. Multilevel uncovertebral joint osteoarthritic changes. Mild spinal canal stenosis at the level of C5-C6 and C6-C7 with narrowing of the foramina. PARASPINOUS SOFT TISSUES: Normal. IMPRESSION: No acute osseous abnormality cervical spine. Chest CT 03/29/24 20:03 IMPRESSION: No evidence of occlusion seen in the superior vena cava. Atelectasis versus pneumonia in the right upper and middle lobes posteriorly. Minimal atelectatic changes in the lower lobes. <AUGUSTO Kulkarni Last Filed: 03/30/24 01:22> ECG Data EKG #1: Attestation: I personally reviewed and interpreted this ECG as follows: <AUGUSTO Kulkarni Last Filed: 03/30/24 01:22> ECG completion date: 03/29/24 <AUGUSTO Kulkarni Last Filed: 03/30/24 01:22> ECG completion time: 15:45 <AUGUSTO Kulkarni Last Filed: 03/30/24 01:22> EKG Interpretation: normal rate (99), sinus rhythm and non-specific ST changes <AUGUSTO Kulkarni Last Filed: 03/30/24 01:22> Discharge Plan Discharge Clinical Impression: Seizure disorder, Rash of face Altered mental status Qualifiers: Altered mental status type: unspecified Qualified Code(s): R41.82 - Altered mental status, unspecified UTI (urinary tract infection) Qualifiers: Urinary tract infection type: catheter-associated UTI Indwelling urinary catheter type: indwelling urethral catheter Encounter type: initial encounter Qualified Code(s): T83.511A - Infection and inflammatory reaction due to indwelling urethral catheter, initial encounter <AUGUSTO Kulkarni Last Filed: 03/30/24 01:22> Patient Disposition: Still a Patient <AUGUSTO Kulkarni Last Filed: 03/30/24 01:22> Condition: Stable <AUGUSTO Kulkarni Last Filed: 03/30/24 01:22> Prescriptions: No Action bisacodyl 10 mg Suppository 10 mg RECTAL DAILY PRN (Reason: Constipation) Rx Instructions: if no results for MOM sennosides [senna] 8.6 mg Tablet 8.6 mg feeding tube BID guaifenesin 100 mg/5 mL liquid 600 mg feeding tube BID magnesium hydroxide [Milk of Magnesia] 400 mg/5 mL Suspension 30 ml PO HS PRN (Reason: Constipation) Rx Instructions: If no BM in 3 days polyethylene glycol 3350 17 gram/dose powder 17 g feeding tube DAILY PRN (Reason: Constipation) metoprolol tartrate 25 mg tablet 25 mg PO BID acetaminophen 650 mg Tablet 650 mg PO Q4H PRN (Reason: general discomfort) Rx Instructions: administer via G-Tube Eucerin Cream 1 applic TOPICAL DAILY PRN (Reason: Itching) Rx Instructions: apply to foot, legs and face pantoprazole [Protonix] [address] for susp in packet 40 mg PO DAILY atorvastatin 40 mg tablet 40 mg PO HS ipratropium-albuterol 0.5 mg-3 mg(2.5 mg base)/3 mL solution for nebulization 3 ml INHALATION Q6H PRN (Reason: Shortness Of Breath) ketoconazole 2 % shampoo 1 ea TOPICAL WEEKLY Rx Instructions: on Tuesday and artificial tears solution Drops 1 drp OPHTHALMIC (EYE) PRN Rx Instructions: instill 1 drop per eye as needed for dry eye thiamine HCl (vitamin B1) 100 mg Tablet 100 mg feeding tube DAILY famotidine 20 mg tablet 20 mg feeding tube BID valproic acid (as sodium salt) 250 mg/5 mL solution 1,250 mg feeding tube QID magnesium citrate [Citroma] Solution 296 ml PO DAILY PRN (Reason: Constipation) Rx Instructions: if no results from enema folic acid 1 mg tablet 1 mg feeding tube DAILY aspirin 81 mg Tablet 81 mg PO DAILY Rx Instructions: administer via G-Tube ibuprofen 100 mg/5 mL Suspension 600 mg PO QID PRN (Reason: pain) metoclopramide HCl 10 mg tablet 10 mg feeding tube TIDWMEAL Rx Instructions: before meals and at bedtime lorazepam 2 mg/mL Syringe 1 mg IV Q4H PRN (Reason: Seizure Activity) levetiracetam 100 mg/mL solution 2,000 mg feeding tube BID calcium carbonate 500 mg/5 mL (1,250 mg/5 mL) Suspension 1,250 mg PO Q6H PRN (Reason: Heartburn) sodium chloride 7 % solution for nebulization 1 inh INHALATION TID lacosamide 10 mg/mL solution 200 mg feeding tube BID clobazam 10 mg tablet 10 mg feeding tube DAILY ferrous sulfate 220 mg (44 mg iron)/5 mL elixir 7.5 mg feeding tube DAILY <Shakila Hernandez PA-C - Last Filed: 03/30/24 01:22> Follow-up/Referrals: Lauro,MD Burke [Primary Care Provider] - <Shakila Hernandez PA-C - Last Filed: 03/30/24 01:22> This report may have been done utilizing a voice recognition system. Attempts have been made to correct errors. However, there may be uncorrected grammatical,spelling, and recognition errors present. Report Initialized date/time: Shakila Hernandez PA-C 03/29/241911 Electronically signed by: Shakila Hernandez PA-C 03/30/24121 Zina Collado MD 03/30/24 013 Progress Note Author Zef[facility]ino [facility] March 30, 2024 2:38pm Note Date/Time March 30, 2024 2 :17pm [facility] [address] [place] [address] Hospitalist Progress Note Signed Patient: Bi Tabor MR#: [id number] 43 : 1960 Acct:[id number] Age: 64 ADM Date: 03/29/24 Loc: [id number] [id number]: Rachel Roach D.O. cc: ~ Progress Note: A&P Assessment and Plan (1) Altered mental status: Qualifiers: Altered mental status type: unspecified Qualified Code(s): R41.82 - Altered mental status, unspecified Code(s): R41.82 - Altered mental status, unspecified Status: Acute (2) UTI (urinary tract infection): Qualifiers: Encounter type: initial encounter Indwelling urinary catheter type: indwelling urethral catheter Urinary tract infection type: catheter-associated UTI Qualified Code(s): T83.511A - Infection and inflammatory reaction due to indwelling urethral catheter, initial encounter; N39.0 - Urinary tract infection, site not specified Code(s): N39.0 - Urinary tract infection, site not specified Status: Acute (3) Rash of face: Code(s): R21 - Rash and other nonspecific skin eruption Status: Acute (4) Seizures: Code(s): R56.9 - Unspecified convulsions Status: Acute (5) Gastrojejunal tube present: Code(s): Z93.1 - Gastrostomy status Status: Acute Plan this is a 64-year-old male half-way resident presented with altered mental status. Patient an episode of unresponsiveness may have had focal seizure. . Patient is mostly nonverbal. Patient had similar episode in his prior admission for which he was transferred to [facility] for evaluation. Patient seemed to be back to his baseline status upon arrival to the ED and since then. will consult Neurology for evaluation continue current medication which includes clobazam Keppra Vimpat and valproic acid. EKG without acute ST-T changes. CBC CMP was unremarkable. UA appeared infectious however does have chronic indwelling Jensen catheter. Culture has been sent. CT brain negative with no acute intracranial pathology. Given swelling of the face CT facial bone was performed which also did not show any acute abnormality with no facial bone fracture or soft tissue abnormality. CT chest obtained showed no obstruction of SVC, atelectasis / pneumonia in the right lung no other significant finding. Patient was started on meropenem for UTI. Facial swelling etiology unclear cellulitis versus drug eruption. WBC is however normal. Records from [facility] are getting retrieved. Chronic anemia however looks hemoconcentrated And on IV fluids for dehydration Recent tracheitis with multidrug resistant Pseudomonas on respiratory secretions. Patient has been placed on Airvo via tracheostomy. Continue pulmonary toilet Status post G-tube placement and tube feeding Seizure disorder on clobazam Keppra Vimpat valproic acid Left AKA Chronic respiratory failure Tracheostomy in place COPD DVT prophylaxis apixaban code status: full code Subjective Date/time seen: 03/30/24 14:15 Interval history: Chart reviewed discussed the nursing staff communicates with nodding his head with yes or no. Remains afebrile. Review of Systems Review of Systems: ROS unobtainable: Yes unobtainable due to medical condition(Tracheostomy) Exam Narrative: GENERAL: Chronically ill-appearing, non-toxic, in no acute distress. HEAD: Normocephalic, atraumatic. RESPIRATORY: Airway patent, respirations nonlabored. Some scattered rhonchi, otherwise relatively clear to auscultation bilaterally. Tracheostomy in place without drainage, secretions, surrounding erythema. CARDIOVASCULAR: Regular rate and rhythm without murmurs, rubs, or gallops. ABDOMINAL: Abdomen is somewhat firm, but no appreciable focal tenderness, nondistended. Normoactive BS. MUSCULOSKELETAL: Moves all extremities. Left AKA. Mild swelling noted throughout upper extremities. SKIN: Warm, dry, normal color. NEURO: Alert, answers yes/no to some questions. Speech soft and somewhat difficult to understand at times. Follows some commands. No ataxic movements. No appreciable seizure like activity. PSYCHIATRIC: Appropriate mood and affect. Normal interaction. Objective Data Vital Signs Vital Signs: Vital Signs - 24 hr 03/29/24 15:35 03/29/24 15:44 03/29/24 16:44 Temperature 97.5 F L Pulse Rate 101 H 98 104 H Respiratory Rate 20 19 Blood Pressure 120/96 H 108/78 Pulse Oximetry 100 98 Oxygen Delivery Non-Rebreather Mask Oxygen Flow Rate 15 Fraction of Inspired Oxygen 03/29/24 18:13 03/29/24 19:44 03/29/24 21:59 Temperature Pulse Rate 98 90 77 Respiratory Rate 14 17 15 Blood Pressure 164/84 H 112/82 98/72 L Pulse Oximetry 99 99 100 Oxygen Delivery Oxygen Flow Rate Fraction of Inspired Oxygen 03/29/24 23:08 03/30/24 01:24 03/30/24 01:58 Temperature Pulse Rate 67 87 Respiratory Rate 15 15 Blood Pressure 144/79 H 136/82 124/80 Pulse Oximetry 99 99 Oxygen Delivery Oxygen Flow Rate Fraction of Inspired Oxygen 03/30/24 02:30 03/30/24 03:00 03/30/24 03:00 Temperature Pulse Rate 76 76 75 Respiratory Rate 15 Blood Pressure Pulse Oximetry 99 Oxygen Delivery High Flow Therapy with Tr Oxygen Flow Rate 20 Fraction of Inspired Oxygen 60 03/30/24 04:42 03/29/24 19:50 03/30/24 06:00 Temperature 98.7 F Pulse Rate 98 84 Respiratory Rate 15 Blood Pressure 139/74 Pulse Oximetry 100 94 Oxygen Delivery High Flow Therapy with Tr Oxygen Flow Rate 20 Fraction of Inspired Oxygen 60 03/30/24 08:00 03/30/24 08:40 03/30/24 08:00 Temperature 97.7 F Pulse Rate 87 80 88 Respiratory Rate 16 Blood Pressure 117/72 Pulse Oximetry 98 Oxygen Delivery Oxygen Flow Rate Fraction of Inspired Oxygen 03/30/24 10:00 03/30/24 12:00 03/30/24 12:00 Temperature 98.5 F Pulse Rate 91 89 63 Respiratory Rate 16 Blood Pressure 123/73 Pulse Oximetry 99 Oxygen Delivery Oxygen Flow Rate Fraction of Inspired Oxygen Intake/Output Intake/Output: Intake & Output 03/27/24 03/28/24 03/29/24 03/30/24 23:59 23:59 23:59 23:59 Intake Total 200 Output Total 600 Balance -400 Meds/Results Medications: Active Medications Generic Name Dose Route Start Last Admin Trade Name Freq PRN Reason Stop Dose Admin Acetaminophen 650 mg 03/30/24 04:50 Acetaminophen Elixir 325 Mg/10.15 Ml Udc FEED TUBE Q4H PRN Pain 1-3 or fever Albuterol/Ipratropium 3 ml 03/30/24 04:50 Ipratropium 0.5 Mg/Albuterol Sulfate 2.5 Mg Ampul.Neb 3 Ml INHALATION Q6H PRN Shortness Of Breath Apixaban 5 mg 03/30/24 09:00 03/30/24 08:40 Apixaban 5 Mg Tablet FEED TUBE 5 mg Q12HR TERRELL Administration Artificial Tears 1 drop 03/30/24 05:01 Artificial Tears Ophth Soln 15 Ml Bottle EACH EYE PRN PRN Dry Eye(s) Aspirin 81 mg 03/30/24 09:00 03/30/24 08:40 Aspirin 81 Mg Chewable Tablet FEED TUBE 81 mg DAILY TERRELL Administration Atorvastatin Calcium 40 mg 03/30/24 21:00 Atorvastatin 40 Mg Tablet FEED TUBE HS TERRELL Bisacodyl 10 mg 03/30/24 04:50 Bisacodyl 10 Mg Suppository RECTAL DAILY PRN Constipation Calcium Carbonate 400 mg 03/30/24 05:03 Calcium Carbonate (Tums) 500 Mg (200 Mg Elemental) FEED TUBE Q6H PRN Heartburn Clobazam 10 mg 03/30/24 09:00 03/30/24 08:40 Clobazam (*Crx) 10 Mg Tablet FEED TUBE 10 mg DAILY TERRELL Administration Famotidine 20 mg 03/30/24 09:00 03/30/24 08:40 Famotidine 20 Mg Tablet FEED TUBE 20 mg BID TERRELL Administration Folic Acid 1 mg 03/30/24 09:00 03/30/24 08:40 Folic Acid 1 Mg Tablet FEED TUBE 1 mg DAILY TERRELL Administration Guaifenesin 300 mg 03/30/24 04:50 Guaifenesin 200 Mg/10 Ml Udc FEED TUBE BID PRN Cough Meropenem 1 gm in 100 mls @ 200 mls/hr 03/30/24 06:00 03/30/24 06:20 IVPB Infused Q8H TERRELL Infusion Lacosamide 200 mg 03/30/24 09:00 03/30/24 08:40 Lacosamide (*Crx) 200 Mg Tablet FEED TUBE 200 mg Q12HR TERRELL Administration Levetiracetam 1,500 mg 03/30/24 09:00 03/30/24 08:39 Levetiracetam Oral Amparo 500 Mg/5 Ml Udc FEED TUBE 1,500 mg Q12HR TERRELL Administration Magnesium Citrate 296 ml 03/30/24 04:50 Magnesium Citrate 300 Ml Btl PO DAILY PRN Constipation Metoprolol Tartrate 25 mg 03/30/24 09:00 03/30/24 08:40 Metoprolol Tartrate 25 Mg Tablet FEED TUBE 25 mg Q12HR TERRELL Administration Ondansetron HCl 4 mg 03/29/24 23:32 Ondansetron Inj 4 Mg/2 Ml Vial IV PUSH Q4H PRN Nausea Polyethylene Glycol 17 gm 03/30/24 04:50 Polyethylene Glycol 3350 17 Gm Powd.Pack FEED TUBE DAILY PRN Constipation Senna 8.6 mg 03/30/24 09:00 03/30/24 08:40 Sennosides 8.6 Mg Tablet FEED TUBE 8.6 mg BID TERRELL Administration Thiamine HCl 100 mg 03/30/24 09:00 03/30/24 08:40 Thiamine Hcl 100 Mg Tablet FEED TUBE 100 mg DAILY TERRELL Administration Valproate Sodium 1,250 mg 03/30/24 09:00 03/30/24 08:39 Valproic Acid Liq 250 Mg/5 Ml Oral Solution Udc FEED TUBE 1,250 mg QID TERRELL Administration Radiology Results: ITS Impressions Head CT 03/29/24 17:58 IMPRESSION: No acute intracranial findings. Head/Cervical Spine/Facial Bones CT 03/29/24 19:25 IMPRESSION: Old fracture in the medial wall of the left orbit. Pansinusitis. Soft tissue density in the right maxillary sinus is not excluded. Clinical correlation advised. Sclerotic area in the lower mandible. Follow-up advised. ------- CT facial & cervical spine wo Ordering provider: Shakila Hernandez PA-C History: . sz, unknown fall, redness/swelling to face . Comparison: None. Technique: CT of the cervical spine was performed without contrast. Sagittal and coronal reformatted images were also obtained and reviewed. Automated exposure control and iterative reconstruction technique were employed. The dose-length product was 462.59 mGy-cm. FINDINGS: VERTEBRAE: No subluxation or acute fracture. The occipital condyles are intact. Chronic loss of volume of C6 and C5 is noted. DISC SPACES: Narrowing of the disc space at the level of C5-C6 and C6-C7 multilevel facet joint disease. Multilevel uncovertebral joint osteoarthritic changes. Mild spinal canal stenosis at the level of C5-C6 and C6-C7 with narrowing of the foramina. PARASPINOUS SOFT TISSUES: Normal. IMPRESSION: No acute osseous abnormality cervical spine. Chest CT 03/29/24 20:03 IMPRESSION: No evidence of occlusion seen in the superior vena cava. Atelectasis versus pneumonia in the right upper and middle lobes posteriorly. Minimal atelectatic changes in the lower lobes. Labs Labs: Laboratory Results - last 24 hr 03/29/24 03/29/24 03/29/24 15:55 16:58 17:19 WBC 8.4 RBC 4.63 Hgb 15.3 D Hct 45.0 MCV 97.2 MCH 33.0 MCHC 34.0 RDW 13.6 Plt Count 151 D MPV 12.5 H Immature Gran % (Auto) 0.1 Neut % (Auto) 42.6 L Lymph % (Auto) 42.2 [place] % (Auto) 8.3 Eos % (Auto) 6.4 H Baso % (Auto) 0.4 Lymph # (Auto) 3.55 H [place] # (Auto) 0.7 H Eos # (Auto) 0.5 H Baso # (Auto) 0.0 Abs Immat Gran (auto) 0.01 Absolute Neuts (auto) 3.6 Absolute Nucleated RBC 0.000 Nucleated RBC % 0.0 % Immature Plt Fraction PT 13.7 INR 1.0 APTT 27.4 Puncture Site ABG pH ABG pCO2 ABG pO2 ABG PO2/FiO2 Ratio ABG HCO3 ABG O2 Saturation ABG O2 Content ABG Base Excess A-a Gradient Oxyhemoglobin Carboxyhemoglobin Methemoglobin Reduced Hemoglobin Total Hemoglobin O2 Delivery Device O2 Liters/Min FiO2 Sodium 140 Potassium 4.6 Chloride 102 Carbon Dioxide 30 Anion Gap 8 BUN 14 Creatinine 0.70 Estim Creat Clear Calc 110 Estimated GFR > 60 Glucose 98 Lactic Acid 1.4 Calcium 9.8 Total Bilirubin 0.3 AST 39 ALT 27 Alkaline Phosphatase 102 Total Protein 8.0 Albumin 3.9 Urine Color Yellow Urine Appearance Cloudy H Urine pH 8.5 Ur Specific [place] 1.017 Urine Protein Trace Urine Glucose (UA) Negative Urine Ketones Negative Ur Blood (Man) 1+ H Urine Nitrate Positive H Urine Bilirubin Negative Urine Urobilinogen 1.0 Add Ur Microanalysis Reviewed Leukocyte Esterase Rfl 2+ H Urine RBC 21-50 H Urine WBC 51-100 H Ur Squamous Epith Cells None seen Amorphous Sediment Few H Urine Bacteria 4+ H Urine Casts 11-20 Hyaline Casts Present Valproic Acid 117.2 03/29/24 03/30/24 19:40 06:27 WBC 7.0 RBC 4.10 L Hgb 13.6 L Hct 41.3 L MCV 100.7 H MCH 33.2 MCHC 32.9 RDW 13.6 Plt Count 146 L MPV 13.5 H Immature Gran % (Auto) Neut % (Auto) Lymph % (Auto) [place] % (Auto) Eos % (Auto) Baso % (Auto) Lymph # (Auto) [place] # (Auto) Eos # (Auto) Baso # (Auto) Abs Immat Gran (auto) Absolute Neuts (auto) Absolute Nucleated RBC Nucleated RBC % % Immature Plt Fraction 14.5 H PT INR APTT Puncture Site Right radial ABG pH 7.410 ABG pCO2 44.4 ABG pO2 76.4 L ABG PO2/FiO2 Ratio 0.85 ABG HCO3 27.5 H ABG O2 Saturation 95.4 ABG O2 Content 18.0 ABG Base Excess 2.4 A-a Gradient 519.8 Oxyhemoglobin 94.0 Carboxyhemoglobin 0.4 Methemoglobin 0.2 Reduced Hemoglobin 5.4 H Total Hemoglobin 13.6 O2 Delivery Device Non-rebreather mask O2 Liters/Min 15.0 FiO2 90 Sodium 138 Potassium 4.0 Chloride 103 Carbon Dioxide 30 Anion Gap 5 BUN 15 Creatinine 0.70 Estim Creat Clear Calc 110 Estimated GFR > 60 Glucose 89 Lactic Acid Calcium 9.3 Total Bilirubin AST ALT Alkaline Phosphatase Total Protein Albumin Urine Color Urine Appearance Urine pH Ur Specific [place] Urine Protein Urine Glucose (UA) Urine Ketones Ur Blood (Man) Urine Nitrate Urine Bilirubin Urine Urobilinogen Add Ur Microanalysis Leukocyte Esterase Rfl Urine RBC Urine WBC Ur Squamous Epith Cells Amorphous Sediment Urine Bacteria Urine Casts Hyaline Casts Valproic Acid This report may have been done utilizing a voice recognition system. Attempts have been made to correct errors. However, there may be uncorrected grammatical,spelling, and recognition errors present. Report Initialized date/time: Zeferino Morfin MD 03/30/24 / 1417 Electronically signed by: Zeferino Morfin MD 03/30/24 1438 Progress Note Author Zeferino Morfin [facility] March 31, 2024 1:09pm Note Date/Time March 31, 2024 1 :10pm [place] [address] [address] [place] [address] Hospitalist Progress Note Signed Patient: Bi Tabor MR#: [id number] 43 : 1960 Acct:[id number] Age: 64 ADM Date: 03/31/24 Loc: [facility] [id number]: Zeferino Morfin M.D. cc: ~ Progress Note: A&P Assessment and Plan (1) Altered mental status: Qualifiers: Altered mental status type: unspecified Qualified Code(s): R41.82 - Altered mental status, unspecified Code(s): R41.82 - Altered mental status, unspecified Status: Acute (2) UTI (urinary tract infection): Qualifiers: Encounter type: initial encounter Indwelling urinary catheter type: indwelling urethral catheter Urinary tract infection type: catheter-associated UTI Qualified Code(s): T83.511A - Infection and inflammatory reaction due to indwelling urethral catheter, initial encounter; N39.0 - Urinary tract infection, site not specified Code(s): N39.0 - Urinary tract infection, site not specified Status: Acute (3) Rash of face: Code(s): R21 - Rash and other nonspecific skin eruption Status: Acute (4) Seizures: Code(s): R56.9 - Unspecified convulsions Status: Acute (5) Gastrojejunal tube present: Code(s): Z93.1 - Gastrostomy status Status: Acute Plan this is a 64-year-old male half-way resident presented with altered mental status. Patient an episode of unresponsiveness may have had focal seizure. . Patient is mostly nonverbal. Patient had similar episode in his prior admission for which he was transferred to [facility] for evaluation. Patient seemed to be back to his baseline status upon arrival to the ED and since then. will consult Neurology for evaluation continue current medication which includes clobazam Keppra Vimpat and valproic acid. EKG without acute ST-T changes. CBC CMP was unremarkable. UA appeared infectious however does have chronic indwelling Jensen catheter. Culture has been sent. CT brain negative with no acute intracranial pathology. Given swelling of the face CT facial bone was performed which also did not show any acute abnormality with no facial bone fracture or soft tissue abnormality. CT chest obtained showed no obstruction of SVC, atelectasis / pneumonia in the right lung no other significant finding. Patient was started on meropenem for UTI. urine culture growing Morganella morganii. Sensitive to meropenem and Zosyn. Will continue meropenem Facial swelling etiology unclear cellulitis versus drug eruption. WBC is however normal. Bacteremia with Gram-positive cocci in clusters. Vancomycin has been initiated. Likely source possible cellulitis. Records from [facility] are getting retrieved. Chronic anemia however looks hemoconcentrated And on IV fluids for dehydration Recent tracheitis with multidrug resistant Pseudomonas on respiratory secretions. Patient has been placed on Airvo via tracheostomy. Continue pulmonary toilet Status post G-tube placement and tube feeding Seizure disorder on clobazam Keppra Vimpat valproic acid Left AKA Chronic respiratory failure Tracheostomy in place COPD DVT prophylaxis apixaban code status: full code Subjective Date/time seen: 03/31/24 13:06 Interval history: no overnight events. Remains on Airvo 42% FiO2 blood culture came back positive. Started on vancomycin IV Review of Systems Review of Systems: ROS unobtainable: Yes unobtainable due to medical condition(Tracheostomy) Exam Narrative: GENERAL: Chronically ill-appearing, non-toxic, in no acute distress. HEAD: Normocephalic, atraumatic. RESPIRATORY: Airway patent, respirations nonlabored. Some scattered rhonchi, otherwise relatively clear to auscultation bilaterally. Tracheostomy in place without drainage, secretions, surrounding erythema. CARDIOVASCULAR: Regular rate and rhythm without murmurs, rubs, or gallops. ABDOMINAL: Abdomen is somewhat firm, but no appreciable focal tenderness, nondistended. Normoactive BS. MUSCULOSKELETAL: Moves all extremities. Left AKA. Mild swelling noted throughout upper extremities. SKIN: Warm, dry, normal color. NEURO: Alert, answers yes/no to some questions. Speech soft and somewhat difficult to understand at times. Follows some commands. No ataxic movements. No appreciable seizure like activity. PSYCHIATRIC: Appropriate mood and affect. Normal interaction. Objective Data Vital Signs Vital Signs: Vital Signs - 24 hr 03/30/24 15:10 03/30/24 16:00 03/30/24 16:00 Temperature 99.1 F Pulse Rate 89 89 Respiratory Rate 18 Blood Pressure 148/95 H Pulse Oximetry 94 96 Oxygen Delivery High Flow Therapy with Tr Oxygen Flow Rate 20 Fraction of Inspired Oxygen 50 03/30/24 18:00 03/30/24 14:00 03/30/24 20:18 Temperature 97.7 F Pulse Rate 78 67 92 Respiratory Rate 18 Blood Pressure 135/84 Pulse Oximetry 94 Oxygen Delivery Oxygen Flow Rate Fraction of Inspired Oxygen 03/30/24 23:06 03/30/24 21:20 03/30/24 23:50 Temperature 97.7 F Pulse Rate 92 92 92 Respiratory Rate 18 18 Blood Pressure 132/76 Pulse Oximetry 94 95 Oxygen Delivery High Flow Therapy with Tr Oxygen Flow Rate 20 Fraction of Inspired Oxygen 50 03/31/24 00:00 03/30/24 20:00 03/30/24 22:00 Temperature Pulse Rate 92 98 91 Respiratory Rate 18 Blood Pressure Pulse Oximetry 95 Oxygen Delivery High Flow Therapy with Tr Oxygen Flow Rate 20 Fraction of Inspired Oxygen 49 03/31/24 00:00 03/31/24 02:00 03/31/24 03:57 Temperature 97.7 F Pulse Rate 90 90 87 Respiratory Rate 18 Blood Pressure 144/76 H Pulse Oximetry 91 Oxygen Delivery Oxygen Flow Rate Fraction of Inspired Oxygen 03/31/24 04:00 03/31/24 04:00 03/31/24 06:00 Temperature Pulse Rate 87 89 88 Respiratory Rate 18 Blood Pressure Pulse Oximetry 91 Oxygen Delivery High Flow Therapy with Tr Oxygen Flow Rate 20 Fraction of Inspired Oxygen 49 03/30/24 20:55 03/31/24 07:41 03/31/24 08:54 Temperature 98.3 F Pulse Rate 85 Respiratory Rate 24 H Blood Pressure 136/73 Pulse Oximetry 95 96 95 Oxygen Delivery High Flow Therapy with Tr High Flow Therapy with Tr Oxygen Flow Rate 20 20 Fraction of Inspired Oxygen 50 50 03/31/24 09:21 03/31/24 10:45 03/31/24 08:00 Temperature Pulse Rate 74 Respiratory Rate Blood Pressure Pulse Oximetry 95 95 Oxygen Delivery High Flow Therapy with Tr High Flow Therapy with Tr Oxygen Flow Rate 20 20 Fraction of Inspired Oxygen 40 49 03/31/24 11:56 03/31/24 12:00 03/31/24 08:00 Temperature 98.4 F Pulse Rate 84 83 Respiratory Rate 22 H Blood Pressure 132/82 Pulse Oximetry 93 93 Oxygen Delivery High Flow Therapy with Tr Oxygen Flow Rate 20 Fraction of Inspired Oxygen 40 03/31/24 10:00 03/31/24 12:00 Temperature Pulse Rate 88 81 Respiratory Rate Blood Pressure Pulse Oximetry Oxygen Delivery Oxygen Flow Rate Fraction of Inspired Oxygen Intake/Output Intake/Output: Intake & Output 03/28/24 03/29/24 03/30/24 03/31/24 23:59 23:59 23:59 23:59 Intake Total 400 2763 Output Total 1450 1400 Balance -1050 1363 Meds/Results Medications: Active Medications Generic Name Dose Route Start Last Admin Trade Name Freq PRN Reason Stop Dose Admin Acetaminophen 650 mg 03/30/24 04:50 Acetaminophen Elixir 325 Mg/10.15 Ml Udc FEED TUBE Q4H PRN Pain 1-3 or fever Albuterol/Ipratropium 3 ml 03/30/24 04:50 Ipratropium 0.5 Mg/Albuterol Sulfate 2.5 Mg Ampul.Neb 3 Ml INHALATION Q6H PRN Shortness Of Breath Apixaban 5 mg 03/30/24 09:00 03/31/24 10:45 Apixaban 5 Mg Tablet FEED TUBE 5 mg Q12HR TERRELL Administration Artificial Tears 1 drop 03/30/24 05:01 Artificial Tears Ophth Soln 15 Ml Bottle EACH EYE PRN PRN Dry Eye(s) Aspirin 81 mg 03/30/24 09:00 03/31/24 10:45 Aspirin 81 Mg Chewable Tablet FEED TUBE 81 mg DAILY TERRELL Administration Atorvastatin Calcium 40 mg 03/30/24 21:00 03/30/24 23:05 Atorvastatin 40 Mg Tablet FEED TUBE 40 mg HS TERRELL Administration Bisacodyl 10 mg 03/30/24 04:50 Bisacodyl 10 Mg Suppository RECTAL DAILY PRN Constipation Calcium Carbonate 400 mg 03/30/24 05:03 Calcium Carbonate (Tums) 500 Mg (200 Mg Elemental) FEED TUBE Q6H PRN Heartburn Clobazam 10 mg 03/30/24 09:00 03/31/24 10:45 Clobazam (*Crx) 10 Mg Tablet FEED TUBE 10 mg DAILY TERRELL Administration Famotidine 20 mg 03/30/24 09:00 03/31/24 10:44 Famotidine 20 Mg Tablet FEED TUBE 20 mg BID TERRELL Administration Folic Acid 1 mg 03/30/24 09:00 03/31/24 10:45 Folic Acid 1 Mg Tablet FEED TUBE 1 mg DAILY TERRELL Administration Guaifenesin 300 mg 03/30/24 04:50 Guaifenesin 200 Mg/10 Ml Udc FEED TUBE BID PRN Cough Meropenem 1 gm in 100 mls @ 200 mls/hr 03/30/24 06:00 03/31/24 07:21 IVPB Infused Q8H TERRELL Infusion Vancomycin HCl 1,500 mg in 500 mls @ 250 mls/hr 03/31/24 03:00 03/31/24 05:33 Vancomycin 1,500 Mg/Ns 500 Ml IVPB Infused Q12H TERRELL Infusion Lacosamide 200 mg 03/30/24 09:00 03/31/24 10:44 Lacosamide (*Crx) 200 Mg Tablet FEED TUBE 200 mg Q12HR TERRELL Administration Levetiracetam 1,500 mg 03/30/24 09:00 03/31/24 10:46 Levetiracetam Oral Amparo 500 Mg/5 Ml Udc FEED TUBE 1,500 mg Q12HR TERRELL Administration Magnesium Citrate 296 ml 03/30/24 04:50 Magnesium Citrate 300 Ml Btl PO DAILY PRN Constipation Metoprolol Tartrate 25 mg 03/30/24 09:00 03/31/24 10:45 Metoprolol Tartrate 25 Mg Tablet FEED TUBE 25 mg Q12HR TERRELL Administration Ondansetron HCl 4 mg 03/29/24 23:32 Ondansetron Inj 4 Mg/2 Ml Vial IV PUSH Q4H PRN Nausea Polyethylene Glycol 17 gm 03/30/24 04:50 Polyethylene Glycol 3350 17 Gm Powd.Pack FEED TUBE DAILY PRN Constipation Senna 8.6 mg 03/30/24 09:00 03/31/24 10:45 Sennosides 8.6 Mg Tablet FEED TUBE 8.6 mg BID TERRELL Administration Thiamine HCl 100 mg 03/30/24 09:00 03/31/24 10:45 Thiamine Hcl 100 Mg Tablet FEED TUBE 100 mg DAILY TERRELL Administration Valproate Sodium 1,250 mg 03/30/24 09:00 03/31/24 10:43 Valproic Acid Liq 250 Mg/5 Ml Oral Solution Udc FEED TUBE 1,250 mg QID TERRELL Administration Radiology Results: ITS Impressions Head CT 03/29/24 17:58 IMPRESSION: No acute intracranial findings. Head/Cervical Spine/Facial Bones CT 03/29/24 19:25 IMPRESSION: Old fracture in the medial wall of the left orbit. Pansinusitis. Soft tissue density in the right maxillary sinus is not excluded. Clinical correlation advised. Sclerotic area in the lower mandible. Follow-up advised. ----- -- CT facial & cervical spine wo Ordering provider: Shakila Hernandez PA-C History: . sz, unknown fall, redness/swelling to face . Comparison: None. Technique: CT of the cervical spine was performed without contrast. Sagittal and coronal reformatted images were also obtained and reviewed. Automated exposure control and iterative reconstruction technique were employed. The dose-length product was 462.59 mGy-cm. FINDINGS: VERTEBRAE: No subluxation or acute fracture. The occipital condyles are intact. Chronic loss of volume of C6 and C5 is noted. DISC SPACES: Narrowing of the disc space at the level of C5-C6 and C6-C7 multilevel facet joint disease. Multilevel uncovertebral joint osteoarthritic changes. Mild spinal canal stenosis at the level of C5-C6 and C6-C7 with narrowing of the foramina. PARASPINOUS SOFT TISSUES: Normal. IMPRESSION: No acute osseous abnormality cervical spine. Chest CT 03/29/24 20:03 IMPRESSION: No evidence of occlusion seen in the superior vena cava. Atelectasis versus pneumonia in the right upper and middle lobes posteriorly. Minimal atelectatic changes in the lower lobes. Labs Labs: Laboratory Results - last 24 hr 03/30/24 20:10 POC Capillary Glucose 131 H This report may have been done utilizing a voice recognition system. Attempts have been made to correct errors. However, there may be uncorrected grammatical,spelling, and recognition errors present. Report Initialized date/time: Zeferino Morfin MD 03/31/24 / 1310 Electronically signed by: Zeferino Morfin MD 03/31/24 1309 Progress Note Author Zeferino Morfin [facility] April 01, 2024 12:24pm Note Date/Time April 01, 2024 1 2:22pm [facility] [address] [place] [address] Hospitalist Progress Note Signed Patient: Bi Tabor MR#: [id number] 43 : 1960 Acct:[id number] Age: 64 ADM Date: 03/31/24 Loc: ANWIMU [id number]: Zeferino Morfin M.D. cc: ~ Progress Note: A&P Assessment and Plan (1) Altered mental status: Qualifiers: Altered mental status type: unspecified Qualified Code(s): R41.82 - Altered mental status, unspecified Code(s): R41.82 - Altered mental status, unspecified Status: Acute (2) UTI (urinary tract infection): Qualifiers: Encounter type: initial encounter Indwelling urinary catheter type: indwelling urethral catheter Urinary tract infection type: catheter-associated UTI Qualified Code(s): T83.511A - Infection and inflammatory reaction due to indwelling urethral catheter, initial encounter; N39.0 - Urinary tract infection, site not specified Code(s): N39.0 - Urinary tract infection, site not specified Status: Acute (3) Rash of face: Code(s): R21 - Rash and other nonspecific skin eruption Status: Acute (4) Seizures: Code(s): R56.9 - Unspecified convulsions Status: Acute (5) Gastrojejunal tube present: Code(s): Z93.1 - Gastrostomy status Status: Acute Plan this is a 64-year-old male half-way resident presented with altered mental status. Patient an episode of unresponsiveness may have had focal seizure. . Patient is mostly nonverbal. Patient had similar episode in his prior admission for which he was transferred to [facility] for evaluation. Patient seemed to be back to his baseline status upon arrival to the ED and since then. will consult Neurology for evaluation continue current medication which includes clobazam Keppra Vimpat and valproic acid. EKG without acute ST-T changes. CBC CMP was unremarkable. UA appeared infectious however does have chronic indwelling Jensen catheter. Culture has been sent. CT brain negative with no acute intracranial pathology. Given swelling of the face CT facial bone was performed which also did not show any acute abnormality with no facial bone fracture or soft tissue abnormality. CT chest obtained showed no obstruction of SVC, atelectasis / pneumonia in the right lung no other significant finding. Patient was started on meropenem for UTI. urine culture growing Morganella morganii. Sensitive to meropenem and Zosyn. Will continue meropenem Facial swelling etiology unclear cellulitis versus drug eruption. WBC is however normal. Bacteremia with Gram-positive cocci in clusters. Vancomycin has been initiated. Likely source possible cellulitis.Will repeat blood culture today. Records from [facility] are getting retrieved. Chronic anemia however looks hemoconcentrated And on IV fluids for dehydration Recent tracheitis with multidrug resistant Pseudomonas on respiratory secretions. Patient has been placed on Airvo via tracheostomy. Continue pulmonary toilet Status post G-tube placement and tube feeding Seizure disorder on clobazam Keppra Vimpat valproic acid Left AKA Chronic respiratory failure Tracheostomy in place COPD DVT prophylaxis apixaban code status: full code Subjective Date/time seen: 04/01/24 12:21 Interval history: no overnight events. Remains on Airvo. Remains afebrile. Review of Systems Review of Systems: ROS unobtainable: Yes unobtainable due to medical condition(Tracheostomy) Exam Narrative: GENERAL: Chronically ill-appearing, non-toxic, in no acute distress. HEAD: Normocephalic, atraumatic. RESPIRATORY: Airway patent, respirations nonlabored. Some scattered rhonchi, otherwise relatively clear to auscultation bilaterally. Tracheostomy in place without drainage, secretions, surrounding erythema. CARDIOVASCULAR: Regular rate and rhythm without murmurs, rubs, or gallops. ABDOMINAL: Abdomen is somewhat firm, but no appreciable focal tenderness, nondistended. Normoactive BS. MUSCULOSKELETAL: Moves all extremities. Left AKA. Mild swelling noted throughout upper extremities. SKIN: Warm, dry, normal color. NEURO: Alert, answers yes/no to some questions. Speech soft and somewhat difficult to understand at times. Follows some commands. No ataxic movements. No appreciable seizure like activity. PSYCHIATRIC: Appropriate mood and affect. Normal interaction. Objective Data Vital Signs Vital Signs: Vital Signs - 24 hr 03/31/24 13:44 03/31/24 15:46 03/31/24 14:00 Temperature 97.6 F Pulse Rate 82 80 Respiratory Rate 16 Blood Pressure 128/71 Pulse Oximetry 93 92 Oxygen Delivery High Flow Therapy with Tr Oxygen Flow Rate 20 Fraction of Inspired Oxygen 40 03/31/24 16:00 03/31/24 18:00 03/31/24 16:00 Temperature Pulse Rate 82 79 Respiratory Rate Blood Pressure Pulse Oximetry 92 Oxygen Delivery High Flow Therapy with Tr Oxygen Flow Rate 20 Fraction of Inspired Oxygen 40 03/31/24 20:18 03/31/24 21:03 03/31/24 21:46 Temperature 97.7 F Pulse Rate 78 74 79 Respiratory Rate 16 Blood Pressure 148/74 H Pulse Oximetry 95 95 Oxygen Delivery High Flow Therapy with Tr Oxygen Flow Rate 20 Fraction of Inspired Oxygen 40 03/31/24 20:00 03/31/24 20:00 03/31/24 22:00 Temperature Pulse Rate 82 79 Respiratory Rate Blood Pressure Pulse Oximetry 97 Oxygen Delivery High Flow Therapy with Tr Oxygen Flow Rate 20 Fraction of Inspired Oxygen 40 03/31/24 23:25 03/31/24 23:52 04/01/24 00:00 Temperature 97.0 F L Pulse Rate 80 84 Respiratory Rate 16 Blood Pressure 138/73 Pulse Oximetry 95 96 Oxygen Delivery High Flow Therapy with Tr Oxygen Flow Rate 20 Fraction of Inspired Oxygen 40 04/01/24 01:47 [employer] 04/01/24 04:32 04/01/24 04:00 Temperature 98.4 F Pulse Rate 79 77 Respiratory Rate 16 Blood Pressure 143/68 H Pulse Oximetry 93 92 Oxygen Delivery High Flow Therapy with Tr Oxygen Flow Rate 20 Fraction of Inspired Oxygen 40 04/01/24 04:00 04/01/24 02:00 04/01/24 06:00 Temperature Pulse Rate 76 78 80 Respiratory Rate Blood Pressure Pulse Oximetry Oxygen Delivery Oxygen Flow Rate Fraction of Inspired Oxygen 04/01/24 08:35 04/01/24 08:35 04/01/24 08:00 Temperature 97.8 F Pulse Rate 80 83 80 Respiratory Rate 20 Blood Pressure 155/78 H Pulse Oximetry 96 98 Oxygen Delivery High Flow Therapy with Tr Oxygen Flow Rate 20 Fraction of Inspired Oxygen 40 04/01/24 08:00 04/01/24 12:00 Temperature 97.4 F L Pulse Rate 67 Respiratory Rate 24 H Blood Pressure 131/68 Pulse Oximetry 96 100 Oxygen Delivery High Flow Therapy with Tr Oxygen Flow Rate 20 Fraction of Inspired Oxygen 40 Intake/Output Intake/Output: Intake & Output 03/29/24 03/30/24 03/31/24 04/01/24 23:59 23:59 23:59 22:59 Intake Total 400 4466 2128 Output Total 1450 2150 1400 Balance -1050 2316 728 Meds/Results Medications: Active Medications Generic Name Dose Route Start Last Admin Trade Name Freq PRN Reason Stop Dose Admin Acetaminophen 650 mg 03/30/24 04:50 Acetaminophen Elixir 325 Mg/10.15 Ml Udc FEED TUBE Q4H PRN Pain 1-3 or fever Albuterol/Ipratropium 3 ml 03/30/24 04:50 Ipratropium 0.5 Mg/Albuterol Sulfate 2.5 Mg Ampul.Neb 3 Ml INHALATION Q6H PRN Shortness Of Breath Apixaban 5 mg 03/30/24 09:00 04/01/24 08:36 Apixaban 5 Mg Tablet FEED TUBE 5 mg Q12HR TERRELL Administration Artificial Tears 1 drop 03/30/24 05:01 Artificial Tears Ophth Soln 15 Ml Bottle EACH EYE PRN PRN Dry Eye(s) Aspirin 81 mg 03/30/24 09:00 04/01/24 08:35 Aspirin 81 Mg Chewable Tablet FEED TUBE 81 mg DAILY TERRELL Administration Atorvastatin Calcium 40 mg 03/30/24 21:00 03/31/24 21:46 Atorvastatin 40 Mg Tablet FEED TUBE 40 mg HS TERRELL Administration Bisacodyl 10 mg 03/30/24 04:50 Bisacodyl 10 Mg Suppository RECTAL DAILY PRN Constipation Calcium Carbonate 400 mg 03/30/24 05:03 Calcium Carbonate (Tums) 500 Mg (200 Mg Elemental) FEED TUBE Q6H PRN Heartburn Clobazam 10 mg 03/30/24 09:00 04/01/24 08:35 Clobazam (*Crx) 10 Mg Tablet FEED TUBE 10 mg DAILY TERRELL Administration Famotidine 20 mg 03/30/24 09:00 04/01/24 08:34 Famotidine 20 Mg Tablet FEED TUBE 20 mg BID TERRELL Administration Folic Acid 1 mg 03/30/24 09:00 04/01/24 08:34 Folic Acid 1 Mg Tablet FEED TUBE 1 mg DAILY TERRELL Administration Guaifenesin 300 mg 03/30/24 04:50 Guaifenesin 200 Mg/10 Ml Udc FEED TUBE BID PRN Cough Meropenem 1 gm in 100 mls @ 200 mls/hr 03/30/24 06:00 04/01/24 05:31 IVPB Infused Q8H TERRELL Infusion Vancomycin HCl 1,500 mg in 500 mls @ 250 mls/hr 03/31/24 03:00 04/01/24 04:22 Vancomycin 1,500 Mg/Ns 500 Ml IVPB Infused Q12H TERRELL Infusion Lacosamide 200 mg 03/30/24 09:00 04/01/24 08:35 Lacosamide (*Crx) 200 Mg Tablet FEED TUBE 200 mg Q12HR TERRELL Administration Levetiracetam 1,500 mg 03/30/24 09:00 04/01/24 08:36 Levetiracetam Oral Amparo 500 Mg/5 Ml Udc FEED TUBE 1,500 mg Q12HR TERRELL Administration Magnesium Citrate 296 ml 03/30/24 04:50 Magnesium Citrate 300 Ml Btl PO DAILY PRN Constipation Metoprolol Tartrate 25 mg 03/30/24 09:00 04/01/24 08:35 Metoprolol Tartrate 25 Mg Tablet FEED TUBE 25 mg Q12HR TERRELL Administration Ondansetron HCl 4 mg 03/29/24 23:32 Ondansetron Inj 4 Mg/2 Ml Vial IV PUSH Q4H PRN Nausea Polyethylene Glycol 17 gm 03/30/24 04:50 Polyethylene Glycol 3350 17 Gm Powd.Pack FEED TUBE DAILY PRN Constipation Senna 8.6 mg 03/30/24 09:00 04/01/24 08:34 Sennosides 8.6 Mg Tablet FEED TUBE 8.6 mg BID TERRELL Administration Thiamine HCl 100 mg 03/30/24 09:00 04/01/24 08:34 Thiamine Hcl 100 Mg Tablet FEED TUBE 100 mg DAILY TERRELL Administration Valproate Sodium 1,250 mg 03/30/24 09:00 04/01/24 08:36 Valproic Acid Liq 250 Mg/5 Ml Oral Solution Udc FEED TUBE 1,250 mg QID TERRELL Administration Radiology Results: ITS Impressions Head CT 03/29/24 17:58 IMPRESSION: No acute intracranial findings. Head/Cervical Spine/Facial Bones CT 03/29/24 19:25 IMPRESSION: Old fracture in the medial wall of the left orbit. Pansinusitis. Soft tissue density in the right maxillary sinus is not excluded. Clinical correlation advised. Sclerotic area in the lower mandible. Follow-up advised. ------- CT facial & cervical spine wo Ordering provider: Shakila Hernandez PA-C History: . sz, unknown fall, redness/swelling to face . Comparison: None. Technique: CT of the cervical spine was performed without contrast. Sagittal and coronal reformatted images were also obtained and reviewed. Automated exposure control and iterative reconstruction technique were employed. The dose-length product was 462.59 mGy-cm. FINDINGS: VERTEBRAE: No subluxation or acute fracture. The occipital condyles are intact. Chronic loss of volume of C6 and C5 is noted. DISC SPACES: Narrowing of the disc space at the level of C5-C6 and C6-C7 multilevel facet joint disease. Multilevel uncovertebral joint osteoarthritic changes. Mild spinal canal stenosis at the level of C5-C6 and C6-C7 with narrowing of the foramina. PARASPINOUS SOFT TISSUES: Normal. IMPRESSION: No acute osseous abnormality cervical spine. Chest CT 03/29/24 20:03 IMPRESSION: No evidence of occlusion seen in the superior vena cava. Atelectasis versus pneumonia in the right upper and middle lobes posteriorly. Minimal atelectatic changes in the lower lobes. Labs Labs: Laboratory Results - last 24 hr 04/01/24 03:53 WBC 5.9 RBC 3.66 L Hgb 11.9 L Hct 36.2 L MCV 98.9 MCH 32.5 MCHC 32.9 RDW 13.4 Plt Count 146 L MPV 13.0 H Immature Gran % (Auto) 0.2 Neut % (Auto) 40.6 L Lymph % (Auto) 37.4 [place] % (Auto) 10.9 H Eos % (Auto) 10.4 H Baso % (Auto) 0.5 Lymph # (Auto) 2.20 [place] # (Auto) 0.6 Eos # (Auto) 0.6 H Baso # (Auto) 0.0 Abs Immat Gran (auto) 0.01 Absolute Neuts (auto) 2.4 Absolute Nucleated RBC 0.000 Nucleated RBC % 0.0 Sodium 139 Potassium 3.9 Chloride 108 H Carbon Dioxide 26 Anion Gap 5 BUN 11 Creatinine 0.50 L Estim Creat Clear Calc 130 Estimated GFR > 60 Glucose 107 Calcium 8.7 Magnesium 1.8 Total Bilirubin 0.2 AST 26 ALT 17 Alkaline Phosphatase 81 Total Protein 6.0 L Albumin 2.9 L This report may have been done utilizing a voice recognition system. Attempts have been made to correct errors. However, there may be uncorrected grammatical,spelling, and recognition errors present. Report Initialized date/time: Zeferino Morfin MD 04/01/24 / 2 Electronically signed by: Zeferino Morfin MD 04/01/244 Progress Note Author Zeferino Morfin [facility] April 02, 2024 12:32pm Note Date/Time April 02, 2024 1 2:32pm [facility] [address] [facility] [address] [place] [address] Hospitalist Progress Note Signed Patient: Bi Tabor MR#: [id number] 43 : 1960 Acct:[id number] Age: 64 ADM Date: 03/31/24 Loc: ANHIMU [id number]: Zeferino Morfin M.D. cc: ~ Progress Note: A&P Assessment and Plan (1) Altered mental status: Qualifiers: Altered mental status type: unspecified Qualified Code(s): R41.82 - Altered mental status, unspecified Code(s): R41.82 - Altered mental status, unspecified Status: Acute (2) UTI (urinary tract infection): Qualifiers: Encounter type: initial encounter Indwelling urinary catheter type: indwelling urethral catheter Urinary tract infection type: catheter-associated UTI Qualified Code(s): T83.511A - Infection and inflammatory reaction due to indwelling urethral catheter, initial encounter; N39.0 - Urinary tract infection, site not specified Code(s): N39.0 - Urinary tract infection, site not specified Status: Acute (3) Rash of face: Code(s): R21 - Rash and other nonspecific skin eruption Status: Acute (4) Seizures: Code(s): R56.9 - Unspecified convulsions Status: Acute (5) Gastrojejunal tube present: Code(s): Z93.1 - Gastrostomy status Status: Acute Plan this is a 64-year-old male half-way resident presented with altered mental status. Patient an episode of unresponsiveness may have had focal seizure. . Patient is mostly nonverbal. Patient had similar episode in his prior admission for which he was transferred to [facility] for evaluation. Patient seemed to be back to his baseline status upon arrival to the ED and since then. will consult Neurology for evaluation continue current medication which includes clobazam Keppra Vimpat and valproic acid. EKG without acute ST-T changes. CBC CMP was unremarkable. UA appeared infectious however does have chronic indwelling Jensen catheter. Culture has been sent. CT brain negative with no acute intracranial pathology. Given swelling of the face CT facial bone was performed which also did not show any acute abnormality with no facial bone fracture or soft tissue abnormality. CT chest obtained showed no obstruction of SVC, atelectasis / pneumonia in the right lung no other significant finding. Patient was started on meropenem for UTI. urine culture growing Morganella morganii. Sensitive to meropenem and Zosyn. Will continue meropenem Facial swelling etiology unclear cellulitis versus drug eruption. WBC is however normal. Bacteremia with Gram-positive cocci in clusters. Vancomycin has been initiated. Likely source possible cellulitis. Repeat blood culture pending. GPC clustersidentified as MSSC. meropenem will cover this and hence vancomycin will be stopped. Records from [facility] are getting retrieved. Chronic anemia however looks hemoconcentrated And on IV fluids for dehydration Recent tracheitis with multidrug resistant Pseudomonas on respiratory secretions. Patient has been placed on Airvo via tracheostomy. Continue pulmonary toilet Status post G-tube placement and tube feeding Seizure disorder on clobazam Keppra Vimpat valproic acid Left AKA Chronic respiratory failure Tracheostomy in place COPD DVT prophylaxis apixaban code status: full code Subjective Date/time seen: 04/02/24 12:30 Interval history: No overnight events. Still have frequent tracheal secretions requiring suctioning. Remains afebrile. On vancomycin and meropenem. Review of Systems Review of Systems: ROS unobtainable: Yes unobtainable due to mental status Exam Narrative: GENERAL: Chronically ill-appearing, non-toxic, in no acute distress. HEAD: Normocephalic, atraumatic. RESPIRATORY: Airway patent, respirations nonlabored. Some scattered rhonchi, otherwise relatively clear to auscultation bilaterally. Tracheostomy in place without drainage, secretions, surrounding erythema. CARDIOVASCULAR: Regular rate and rhythm without murmurs, rubs, or gallops. ABDOMINAL: Abdomen is somewhat firm, but no appreciable focal tenderness, nondistended. Normoactive BS. MUSCULOSKELETAL: Moves all extremities. Left AKA. Mild swelling noted throughout upper extremities. SKIN: Warm, dry, normal color. NEURO: Alert, answers yes/no to some questions. Speech soft and somewhat difficult to understand at times. Follows some commands. No ataxic movements. No appreciable seizure like activity. PSYCHIATRIC: Appropriate mood and affect. Normal interaction. Objective Data Vital Signs Vital Signs: Vital Signs - 24 hr 04/01/24 14:00 04/01/24 16:00 04/01/24 16:00 Temperature 97.5 F L Pulse Rate 83 99 96 Respiratory Rate 24 H Blood Pressure 142/74 H Pulse Oximetry 93 Oxygen Delivery Oxygen Flow Rate Fraction of Inspired Oxygen 04/01/24 16:00 04/01/24 18:00 04/01/24 20:00 Temperature 98.7 F Pulse Rate 84 87 Respiratory Rate 18 Blood Pressure 157/74 H Pulse Oximetry 93 96 Oxygen Delivery High Flow Therapy with Tr Oxygen Flow Rate 20 Fraction of Inspired Oxygen 40 04/01/24 20:45 04/01/24 20:00 04/01/24 20:00 Temperature Pulse Rate 84 87 Respiratory Rate Blood Pressure Pulse Oximetry 96 Oxygen Delivery High Flow Therapy with Tr Oxygen Flow Rate 20 Fraction of Inspired Oxygen 40 04/01/24 22:00 04/02/24 00:00 04/02/24 00:00 Temperature 98.6 F Pulse Rate 82 83 81 Respiratory Rate 24 H Blood Pressure 155/77 H Pulse Oximetry 96 Oxygen Delivery Oxygen Flow Rate Fraction of Inspired Oxygen 04/02/24 00:00 04/02/24 02:00 04/02/24 03:37 Temperature Pulse Rate 83 Respiratory Rate Blood Pressure Pulse Oximetry 96 96 Oxygen Delivery High Flow Therapy with Tr High Flow Therapy with Tr Oxygen Flow Rate 20 20 Fraction of Inspired Oxygen 40 40 04/02/24 04:00 04/02/24 04:00 04/02/24 06:00 Temperature 98.4 F Pulse Rate 78 76 66 Respiratory Rate 20 Blood Pressure 128/72 Pulse Oximetry 95 Oxygen Delivery Oxygen Flow Rate Fraction of Inspired Oxygen 04/02/24 08:00 04/02/24 09:18 Temperature 97.3 F L Pulse Rate 73 Respiratory Rate 22 H Blood Pressure 145/65 H Pulse Oximetry 97 97 Oxygen Delivery High Flow Therapy with Tr Oxygen Flow Rate 20 Fraction of Inspired Oxygen 40 Intake/Output Intake/Output: Intake & Output 03/31/24 04/01/24 04/01/24 04/02/24 00:59 00:59 23:59 23:59 Intake Total 1760 Output Total 1250 Balance 510 Meds/Results Medications: Active Medications Generic Name Dose Route Start Last Admin Trade Name Freq PRN Reason Stop Dose Admin Acetaminophen 650 mg 03/30/24 04:50 Acetaminophen Elixir 325 Mg/10.15 Ml Udc FEED TUBE Q4H PRN Pain 1-3 or fever Albuterol/Ipratropium 3 ml 03/30/24 04:50 Ipratropium 0.5 Mg/Albuterol Sulfate 2.5 Mg Ampul.Neb 3 Ml INHALATION Q6H PRN Shortness Of Breath Apixaban 5 mg 03/30/24 09:00 04/01/24 20:45 Apixaban 5 Mg Tablet FEED TUBE 5 mg Q12HR TERRELL Administration Artificial Tears 1 drop 03/30/24 05:01 Artificial Tears Ophth Soln 15 Ml Bottle EACH EYE PRN PRN Dry Eye(s) Aspirin 81 mg 03/30/24 09:00 04/01/24 08:35 Aspirin 81 Mg Chewable Tablet FEED TUBE 81 mg DAILY TERRELL Administration Atorvastatin Calcium 40 mg 03/30/24 21:00 04/01/24 20:44 Atorvastatin 40 Mg Tablet FEED TUBE 40 mg HS TERRELL Administration Bisacodyl 10 mg 03/30/24 04:50 Bisacodyl 10 Mg Suppository RECTAL DAILY PRN Constipation Calcium Carbonate 400 mg 03/30/24 05:03 Calcium Carbonate (Tums) 500 Mg (200 Mg Elemental) FEED TUBE Q6H PRN Heartburn Clobazam 10 mg 03/30/24 09:00 04/01/24 08:35 Clobazam (*Crx) 10 Mg Tablet FEED TUBE 10 mg DAILY TERRELL Administration Famotidine 20 mg 03/30/24 09:00 04/01/24 17:42 Famotidine 20 Mg Tablet FEED TUBE 20 mg BID TERRELL Administration Folic Acid 1 mg 03/30/24 09:00 04/01/24 08:34 Folic Acid 1 Mg Tablet FEED TUBE 1 mg DAILY TRERELL Administration Guaifenesin 300 mg 03/30/24 04:50 Guaifenesin 200 Mg/10 Ml Udc FEED TUBE BID PRN Cough Meropenem 1 gm in 100 mls @ 200 mls/hr 03/30/24 06:00 04/02/24 06:37 IVPB Infused Q8H TERRELL Infusion Lacosamide 200 mg 03/30/24 09:00 04/01/24 20:44 Lacosamide (*Crx) 200 Mg Tablet FEED TUBE 200 mg Q12HR TERRELL Administration Levetiracetam 1,500 mg 03/30/24 09:00 04/01/24 20:46 Levetiracetam Oral Amparo 500 Mg/5 Ml Udc FEED TUBE 1,500 mg Q12HR TERRELL Administration Magnesium Citrate 296 ml 03/30/24 04:50 Magnesium Citrate 300 Ml Btl PO DAILY PRN Constipation Metoprolol Tartrate 25 mg 03/30/24 09:00 04/01/24 20:45 Metoprolol Tartrate 25 Mg Tablet FEED TUBE 25 mg Q12HR TERRELL Administration Ondansetron HCl 4 mg 03/29/24 23:32 Ondansetron Inj 4 Mg/2 Ml Vial IV PUSH Q4H PRN Nausea Polyethylene Glycol 17 gm 03/30/24 04:50 Polyethylene Glycol 3350 17 Gm Powd.Pack FEED TUBE DAILY PRN Constipation Senna 8.6 mg 03/30/24 09:00 04/01/24 17:42 Sennosides 8.6 Mg Tablet FEED TUBE 8.6 mg BID TERRELL Administration Thiamine HCl 100 mg 03/30/24 09:00 04/01/24 08:34 Thiamine Hcl 100 Mg Tablet FEED TUBE 100 mg DAILY TERRELL Administration Valproate Sodium 1,250 mg 03/30/24 09:00 04/01/24 20:45 Valproic Acid Liq 250 Mg/5 Ml Oral Solution Udc FEED TUBE 1,250 mg QID TERRELL Administration Radiology Results: ITS Impressions Head CT 03/29/24 17:58 IMPRESSION: No acute intracranial findings. Head/Cervical Spine/Facial Bones CT 03/29/24 19:25 IMPRESSION: Old fracture in the medial wall of the left orbit. Pansinusitis. Soft tissue density in the right maxillary sinus is not excluded. Clinical correlation advised. Sclerotic area in the lower mandible. Follow-up advised. ------- CT facial & cervical spine wo Ordering provider: Shakila Hernandez PA-C History: . sz, unknown fall, redness/swelling to face . Comparison: None. Technique: CT of the cervical spine was performed without contrast. Sagittal and coronal reformatted images were also obtained and reviewed. Automated exposure control and iterative reconstruction technique were employed. The dose-length product was 462.59 mGy-cm. FINDINGS: VERTEBRAE: No subluxation or acute fracture. The occipital condyles are intact. Chronic loss of volume of C6 and C5 is noted. DISC SPACES: Narrowing of the disc space at the level of C5-C6 and C6-C7 multilevel facet joint disease. Multilevel uncovertebral joint osteoarthritic changes. Mild spinal canal stenosis at the level of C5-C6 and C6-C7 with narrowing of the foramina. PARASPINOUS SOFT TISSUES: Normal. IMPRESSION: No acute osseous abnormality cervical spine. Chest CT 03/29/24 20:03 IMPRESSION: No evidence of occlusion seen in the superior vena cava. Atelectasis versus pneumonia in the right upper and middle lobes posteriorly. Minimal atelectatic changes in the lower lobes. Labs Labs: Laboratory Results - last 24 hr 04/01/24 04/02/24 14:04 05:35 WBC 6.8 RBC 3.83 L Hgb 12.3 L Hct 37.9 L MCV 99.0 MCH 32.1 MCHC 32.5 RDW 13.3 Plt Count 141 L MPV 13.2 H Immature Gran % (Auto) 0.3 Neut % (Auto) 43.7 L Lymph % (Auto) 36.1 [place] % (Auto) 8.7 H Eos % (Auto) 10.6 H Baso % (Auto) 0.6 Lymph # (Auto) 2.45 [place] # (Auto) 0.6 Eos # (Auto) 0.7 H Baso # (Auto) 0.0 Abs Immat Gran (auto) 0.02 Absolute Neuts (auto) 3.0 Absolute Nucleated RBC 0.000 Nucleated RBC % 0.0 Platelet Estimate Decreased Large Platelets Present % Immature Plt Fraction 16.4 H Schistocytes None seen Sodium 140 Potassium 3.8 Chloride 109 H Carbon Dioxide 26 Anion Gap 5 BUN 8 L Creatinine 0.40 L Estim Creat Clear Calc 158 Estimated GFR > 60 Glucose 113 H Calcium 8.7 Magnesium 1.7 Total Bilirubin 0.3 AST 32 ALT 17 Alkaline Phosphatase 81 Total Protein 7.0 Albumin 3.0 L Vancomycin Trough 15.4 This report may have been done utilizing a voice recognition system. Attempts have been made to correct errors. However, there may be uncorrected grammatical,spelling, and recognition errors present. Report Initialized date/time: Zeferino Morfin MD 04/02/24 / 1232 Electronically signed by: Zeferino Morfin MD 04/02/24 1232
--- OUTSIDE RECORDS SUMMARY | 2024-06-08 05:27 | XMS_ITS | Clinical Summary ---
Author Organization [facility] Executive Channel Address [address] [place] [address] Care Team Providers Care Inventory Clerk Name Role Phone Elizabeth Sullivan RN Unavailable [phone] Dany Monsivais MD Primary Care Provider [phone] Source Comments [facility],non-owned Affiliates and Associated Physician Practices is amultiple site organization consisting of ambulatory clinics and hospital sitesin [place], [place], [place] and [place]. This disclosure is being madepursuant to the Care Everywhere program and may not contain all information available regarding this patient. Last updated 18.[facility] Allergies Active Allergy Reactions Criticality Noted Date Comments Clonazepam Psychiatric Medium 12/09/2021 hallucinations Medications * Be aware that medications may not be up to date on this document. Alwaysverify current medications with the patient. Medication Sig Dispensed Refills Start Date End Date Status folic acid (Folvite) 1 MG tablet 1 (one) tablet by Enteral Tube route once daily 2 Active thiamine (Vitamin B-1) 100 MG tablet 1 (one) tablet by Enteral Tube route once daily 2 Active aspirin (Aspirin) 81 MG chew tablet 1 (one) tablet by Enteral Tube route once daily Active artificial tears ophthalmic ointment Instill into both eyes every 8 hours 3 Active metoprolol tartrate IR (Lopressor) 25 MG tablet 1 (one) tablet by Enteral Tube route 2 times daily 3 Active acetaminophen (Tylenol) 325 MG tablet 2 (two) tablets by Enteral Tube route every 6 hours as needed Maximum allowable Acetaminophen amount = 4 Grams (4000 mg) / 24 hours. 3 Active pantoprazole (Protonix) 40 MG packet Take 1 (one) packet by mouth once daily 0 3 Active Calcium Carbonate Antacid (calcium carbonate, 500 mg elemental Ca/5 mL,) 1250 MG/5ML suspension 5 mL by Enteral Tube route every 6 hours as needed 3 Active atorvastatin (Lipitor) 40 MG tablet 1 (one) tablet by Enteral Tube route at bedtime 30 tablet 3 Active guaiFENesin (Robitussin) 100 MG/5ML solution 15 mL by Enteral Tube route Every 6 Hours (03,09,15,21) 200 mL 3 Active polyethylene glycol 3350 (Miralax) 17 g packet 17 (seventeen) g by Enteral Tube route 2 times daily 15 packet 3 Active senna (Senokot) 8.6 MG tablet 1 (one) tablet by Enteral Tube route once daily 30 tablet 3 Active famotidine (Pepcid) 20 MG tablet 1 (one) tablet by Enteral Tube route 2 times daily 60 tablet 3 Active bisacodyl (Dulcolax) 10 MG suppository Insert 1 (one) suppository into the rectum once daily as needed for Constipation Active albuterol-iprat ropium (Duo-Neb) 0.5-2.5 (3) MG/3ML nebulizer solution Inhale 3 mL by mouth every 6 hours as needed for Shortness of Breath or Wheezing Active apixaban (Eliquis) 5 MG tablet Take 1 (one) tablet by mouth 2 times daily Per G-tube 4 Active valproic acid (Depakene) 250 MG/5ML solution 25 mL by Per G Tube route every 6 hours 473 mL 4 Active levETIRAcetam (Keppra) 100 MG/ML oral solution 20 mL by Enteral Tube route 2 times daily for 90 days 1200 mL 2 4 08/14/19 25 Active cloBAZam (Onfi) 10 MG tablet Take 1 (one) tablet by mouth 2 times daily 60 tablet 5 4 Active lacosamide (Vimpat) 200 MG tablet Take 1 (one) tablet by mouth 2 times daily for 90 days 60 tablet 2 4 08/14/19 25 Active levETIRAcetam (Keppra) 100 MG/ML oral solution 20 mL by Enteral Tube route 2 times daily for 90 days 4 05/15/20 24 Discontinued(Reo rder) lacosamide (Vimpat) 200 MG tablet 1 (one) tablet by Per G Tube route 2 times daily for 90 days 4 05/15/20 24 Discontinued(Reo rder) cloBAZam (Onfi) 10 MG tablet Take 1 (one) tablet by mouth 2 times daily 60 tablet 5 4 05/15/20 24 Discontinued valproic acid (Depakene) 250 MG/5ML solution 25 mL by Per G Tube route every 6 hours 4 05/15/20 24 Discontinued lacosamide (Vimpat) 200 MG tablet Take 1 (one) tablet by mouth 2 times daily for 90 days 60 tablet 2 4 05/15/20 24 Discontinued doxycycline monohydrate 100 MG tablet Take 1 (one) tablet by mouth 2 times daily for 7 days 14 tablet 4 05/22/20 24 Active Problems Problem Noted Date Diagnosed Date G tube feedings 06/07/2024 Hematemesis with nausea 06/07/2024 Anemia, unspecified type 09/06/2023 Hypertension, unspecified type 09/06/2023 Encounter for feeding tube placement 09/06/2023 Pleural effusion 06/09/2023 Elevated lactic acid level 06/09/2023 Aspiration into airway, subsequent encounter Anemia of chronic disease 01/01/2023 Acute encephalopathy 01/01/2023 Delayed gastric emptying 12/10/2022 Nasal polyp 11/25/2022 Acute blood loss anemia 11/25/2022 PEG (percutaneous endoscopic gastrostomy) status 11/25/[address] 11/25/2022 Pressure ulcer of right heel, stage 3 10/17/2022 Dementia, vascular 10/17/2022 Chronic respiratory failure with hypoxia 023 Atelectasis, right 07/05/2022 Contrast-induced nephropathy 07/05/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 Leukocytosis, unspecified type 06/28/2022 Hypoxia 06/28/2022 Acute respiratory failure with hypoxia Aspiration pneumonitis 06/13/2022 Aspiration into airway 06/12/2022 Protein-calorie malnutrition, unspecified severi ty 06/03/2022 Abdominal pain, generalized 05/30/2022 Lethargy 05/30/2022 History of stroke 05/30/2022 Bacteremia 03/11/2022 Sepsis due to pneumonia 03/11/2022 Ulcer of left foot 03/11/2022 PAD (peripheral artery disease) 03/11/2022 Severe protein-calorie malnutrition 03/11/2022 Status epilepticus 12/30/2021 Seizure disorder 12/30/2021 COVID-19 04/14/2021 History of CVA (cerebrovascular accident) 2020 Cognitive communication deficit 08/25/2020 Dysphagia, oropharyngeal phase 08/25/2020 Seizures 08/13/2020 Cerebrovascular accident 06/13/2019 Insomnia 06/13/2019 Low back pain 06/13/2019 Epilepsy, unspecified, not i ntractable, without status epilepticus 05/25/2019 Hemiplegia and hemiparesis f ollowing cerebral infarction affecting right non-dominant side 05/25/2019 Alzheimer's disease with early onset 05/17/2019 Paroxysmal tachycardia, unspecified 05/16/2019 Osteoporosis 11/22/2018 Alcohol abuse, uncomplicated 08/13/2015 Essential (primary) hypertension 07/24/2015 Benign neoplasm of prostate 06/26/2015 Other specified rheumatoid arthritis, unspecifie d site 06/26/2015 Hyperlipidemia 04/14/2015 Overview (06/13/2019): Last Assessment & Plan: Continue home meds and monitor 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 V-tach 11/27/2022 12/10/2022 Hemoptysis 11/25/2022 12/10/2022 Febrile 09/18/2022 09/24/2022 Tachypnea 08/28/2022 11/09/2022 SOB (shortness of breath) 08/28/2022 Hyperkalemia 07/11/2022 11/09/2022 Hypernatremia 07/05/2022 11/09/2022 Sinus tachycardia 06/28/2022 12/11/2022 Bacterial pneumonia 06/28/2022 11/10/19 Hypoxia 06/12/2022 06/12/2022 Pulmonary infiltrate 05/30/2022 023 Acute on chronic respiratory failure with hypoxia 05/30/2022 12/10/2022 Sepsis without acute organ dysfunction 03/08/2022 11/09/2022 Weakness 08/22/2020 12/30/2021 Urinary tract infection 08/20/2020 04/0 11/2020 Difficulty in walking, not e lsewhere classified 05/24/2020 11/09/2022 Muscle weakness (generalized) 05/24/2020 11/09/2022 Anxiety 06/13/2019 12/30/2021 Laceration 06/13/2019 07/25/2019 Personal history of urinary (tract) infections 05/16/2019 12/30/2021 Unspecified sequelae of othe r cerebrovascular disease 05/16/2019 12/30/2021 Hyponatremia 01/14/2019 12/30/2021 Headache, unspecified headache type 12/27/2018 12/30/2021 UTI (urinary tract infection) 11/29/2018 06/27/2019 Overview (06/13/2019): Last Assessment & Plan: As noted above No evidence of infection Urine cultures from [facility] last month were negative growth as well with similar findings urinalysis Symptoms may be due to chronic urinary retention and he will require postvoid residuals and urologic evaluation if significant retention is noted during this admission. I will put him on some Flomax and observe and discontinue Jensen in 48 hours. Seizure 10/13/2017 09/24/2022 Syncope and collapse 06/26/2015 023 Encounters Date Type Department Care Team Description 06/07/2024 5:04 PM [facility] - Present Hospital Encounter [facility] EMERGENCY DEPARTMENT [address] [place] [address] Elizabeth Hernandez MD Miller, Chad S, MD Naidoo, Shiva F, MD Abdominal pain, generalized (Primary Dx); Hematemesis with nausea; G tube feedings (HCC) 06/07/2024 Travel 05/15/2024 10:08 AM [facility] - 05/15/2024 11:44 PM [facility] Emergency [facility] EMERGENCY DEPARTMENT [address] [place] [address] Caio Elder MD Garcia, Andrew M, MD Abdominal pain, generalized (Primary Dx); Diverticulosis; Prostate enlargement; Nephrolithiasis Discharge Disposition: Residential Facility 05/15/2024 Travel 05/03/2024 Travel 04/30/2024 9:21 PM [facility] - 05/01/2024 2:23 AM [facility] Emergency [facility] EMERGENCY DEPARTMENT [address] [place] [address] Elmo Medeiros MD Kraemer, Carl M, MD Ground-level fall; Concussion with unknown loss of consciousness status, initial encounter; NPH (normal pressure hydrocephalus) (HCC) Discharge Disposition: Senior Living Acute Care 04/30/2024 Travel 04/21/2024 3:04 PM [facility] - 04/21/2024 9:01 PM [facility] Emergency [facility] EMERGENCY DEPARTMENT [address] [place] [address] Alden Iglesias MD Attention to G-tube (HCC) (Primary Dx); Irritation around percutaneous endoscopic gastrostomy (PEG) tube site (HCC); Tracheostomy care (HCC) Discharge Disposition: Home or Self Care 04/21/2024 Travel 03/28/2024 Telephone [facility] - Neurology [address] [facility] [place] [address] Yana Rm APRN-[facility] Care Management from Last 3 Months Immunizations Name Administration Dates Next Due Covid Pfizer primary monoval ent 12+ yr 0.3mL Purple cap 04/06/2021 INFLUENZA VACCINE 02/01/2022,,03/07/2020,2018,03/24/2018,06/15/2017,06/23/2016,1 06/23/2014,03/19/2015 INFLUENZA VACCINE, QUADR. (F LUZONE; FLULAVAL; FLUARIX; AFLURIA QUADRIVALENT; 6MO+), 0.5 ML (IIV4) 03/24/2018,06/15/2017,06/23/2016,2014 PNEUMOCOCCAL PPV VACCINE 02/04/2016,08/13/2015,0 02/07/2015 TDAP (7yrs+) 06/06/2017 TDAP, HISTORIC VACCINE 03/23/2017 Social History Tobacco Use Types Packs/Day Years Used Date Smoking Tobacco: Former Cigarettes 1 15 Smokeless Tobacco: Never Tobacco Cessation:Counseling Given: Not Answered Alcohol Use Standard Drinks/Week Comments No 0 (1 standard drink = 0.6 oz pur e alcohol) last drink 2015 AUDIT-C Answer Date Recorded Q1: How often do you have a drink containing alcohol? Never 04/30/2024 Q2: How many drinks containi ng alcohol do you have on a typical day when you are drinking? Patient does not drink Q3: How often do you have si x or more drinks on one occasion? Never 04/30/2024 Overall Financial Resource Strain (CARDIA) Answe r Date Recorded How hard is it for you to pa y for the very basics like food, housing, medical care, and heating? Not hard at all 06/19/2023 [facility] [place] [facility] Occup[facility] ional [facility] - Occupational Stress Questionnaire Answer Date Recorded Do you feel stress - tense, restless, nervous, or anxious, or unable to sleep at night because your mind is troubled all the time - these days? Not at all 06/19/2023 Hunger Vital Sign Answer Date Recorded Within the past 12 months, y ou worried that your food would run out before you got the money to buy more. Never true 06/19/19 24 Within the past 12 months, t he food you bought just didn't last and you didn't have money to get more. Never true 06/19/2023 PRAPARE - Transportation Answer Date Re corded In the past 12 months, has l ack of transportation kept you from medical appointments or from getting medications? No 05/31 In the past 12 months, has l ack of transportation kept you from meetings, work, or from getting things needed for daily living? No 06/19/2023 Housing Stability Vital Sign Answer Vinay e Recorded In the last 12 months, was t here a time when you were not able to pay the mortgage or rent on time? No 06/19/2023 In the last 12 months, how many places have you lived? 1 06/19/2023 In the last 12 months, was t here a time when you did not have a steady place to sleep or slept in a penitentiary (including now)? No 06/19/2023 Sex and Gender Information Value Date Recorded Sex Assigned at Not on file Gender Identity Not on file Sexual Orientation Not on file Last Filed Vital Signs Vital Sign Reading Time Taken Comments Blood Pressure 137/94 06/08/2024 4:00 AM [facility] Pulse 122 06/07/2024 8:04 PM [facility] Temperature 37.1 ??C (98.8 ??F) 06/07/2024 10:[address] Respiratory Rate 16 06/07/2024 8:04 PM [facility] Oxygen Saturation 97% 06/08/2024 5:06 AM [facility] Inhaled Oxygen Concentration 28% 06/08/2024 5 :06 AM [facility] Weight 77.1 kg (170 lb) 06/07/2024 5:08 PM [facility] Height 175.3 cm (5' 9 ) 06/07/2024 5:08 PM [facility] Body Mass Index 25.1 06/07/2024 5:08 PM [facility] Plan of Treatment Upcoming Encounters Date Type Department Care Team (Late st Contact Info) Description 12/05/2024 1:00 PM CDT Office Visit [facility] - Neurology [address] [place] [address], [place] [address] Sean Raymundo, DO [address] [place] [address] [place] [address] Health Maintenance Due Date Last Done Comments COLOGUARD (AGES 45-75) - COLON CA SCREENING 1961 COLON MONITORING 1961 COLONOSCOPY - COLON CA SCREENING 1961 CT COLONOGRAPHY - COLON CA SCREENING 1961 Colorectal Cancer Screening 1961 FIT - COLON CA SCREENING 1961 FLEX SIG - COLON CA SCREENING 1961 ZOSTER VACCINE (1 of 2) 2011 PNEUMOCOCCAL VACCINE 50+ (2 of 2 - PCV) 02/03/2017 02/04/2016, 08/13/2015, 02/07/2015 PNEUMOCOCCAL VACCINE (2 of 2 - PCV) 02/03/2017 02/04/2016, 08/13/2015, 02/07/2015 Respiratory Syncytial Virus (RSV) Vaccine Pt: or over 60 yrs (1 - Risk 60-74 years 1-dose series) 2021 COVID-19 VACCINE ( - season) 2024 04/06/2021, 07/02/2020, 06/11/2020 INFLUENZA VACCINE (#1) 2024 2, 03/16/2021, 03/07/2020, Additional history exists DEPRESSION SCREENING 05/30/2024 DTAP/TDAP/TD VACCINES (3 - Td or Tdap) 06/06/2027 06/06/2017, 03/23/2017 SCREENING FOR DIABETES 06/08/2027 5, 06/07/2024, 05/15/2024, Additional history exists HEPATITIS C SCREENING Completed 09/01/2022 , 01/30/2018, 10/13/2017 HIV SCREENING Completed 09/01/2022, 04/0 01/2019, 01/30/2018, Additional history exists HEPATITIS B VACCINE Aged Out No longe r eligible based on patient's age to complete this topic HIB VACCINE Aged Out No longer eligi ble based on patient's age to complete this topic HPV VACCINE Aged Out No longer eligi ble based on patient's age to complete this topic MENINGOCOCCAL (Group B) VACCINE Aged Out No longer eligible based on patient's age to complete this topic MENINGOCOCCAL VACCINE Aged Out No eleonora luc eligible based on patient's age to complete this topic Procedures The patient is currently admitted. The information in this section might not be complete until the patient is discharged. Procedure Name Priority Date/Time Associated Diagnosis Comments PHOSPHORUS BLOOD STAT 06/08/2024 4:11 AM [facility] MAGNESIUM BLOOD STAT 06/08/2024 4:11 AM [facility] LIPID PROFILE STAT 06/08/2024 4:11 AM [facility] CBC W/O DIFFERENTIAL STAT 06/08/2024 4:11 AM [facility] BASIC METABOLIC PANEL (CALCIUM TOTAL) STAT 06/08/2024 4:11 AM [facility] PT-INR [facility] STAT 06/08/2024 4:11 AM [facility] URINALYSIS REFLEX MICROSCOPIC REFLEX CULTURE STAT 06/07/2024 10:24 PM [facility] LIPASE BLOOD STAT 06/07/2024 8:01 PM [facility] COMPREHENSIVE METABOLIC PANEL STAT 06/07/2024 8:01 PM [facility] CBC W AUTO DIFFERENTIAL STAT 06/07/2024 8:01 PM [facility] URINALYSIS REFLEX MICROSCOPIC REFLEX CULTURE STAT 05/15/2024 6:[address] CHEST ABDOMEN PELVIS W CONT STAT 05/15/2024 2:44 PM [facility] Abdominal pain, generalized CBC W AUTO DIFFERENTIAL STAT 05/15/2024 12:40 PM [facility] COMPREHENSIVE METABOLIC PANEL STAT 05/15/2024 12:40 PM [facility] MAGNESIUM BLOOD STAT 05/15/2024 12:40 PM [facility] PHOSPHORUS BLOOD STAT 05/15/2024 12:[address] CERVICAL SPINE WO CONTRAST STAT 04/30/2024 11:05 PM [facility] Ground-level fall CT HEAD WO CONTRAST STAT 04/30/2024 1 1:05 PM [facility] Ground-level fall XR CHEST 1VW PORTABLE STAT 04/30/2024 10:13 PM [facility] Ground-level fall XR ABDOMEN KUB STAT 04/21/2024 5:41 PM [facility] Attention to G-tube (HCC) HEPATITIS C AB SCREEN RFLX NAAT QUANT Routine 09/01/2022 2:05 AM CDT HIV-1 HIV-2 ANTIBODY + HIV P24 AG PANEL Routine 09/01/2022 2:05 AM CDT from Last 3 Months or Most Recently Relevant to Health Maintenance Results * PT-INR [facility] (06/08/2024 4:11 AM [facility]) PT 14.1 12.1 - 14.8 Seconds 06/08/2024 4:46 AM [facility] INR 1.1 See Comment 06/08/2024 4:46 AM [facility] Comment:The suggested therap eutic range for standard coumadin (warfarin) therapy is an INR of 2.0-3.0. For high-risk patients (Mechanical Mitral Valve Prosthesis, etc.), the suggested prophylactic therapeutic range is an INR of 2.5-3.5. Blood BLOOD SPECIMEN / Unknown Venipuncture / Unknown 06/08/2024 4:11 AM [facility] 06/08/2024 4:18 AM [facility] Elizabeth Hernandez MD LAB - COAGULATION OR DERABLES [facility] [address] [place] [address], [facility] [phone] * (ABNORMAL) CBC W/O DIFFERENTIAL (06/08/2024 4:11 AM [facility]) WBC 7.7 4.0 - 10.7 x10E9/L 06/08/2024 4:25 AM [facility] RBC Count 4.07(L) 4.30 - 5.80 x10E12/L 06/08/2024 4:25 AM [facility] Hemoglobin 13.4 13.3 - 17.5 g/dL 06/08/2024 4:25 AM [facility] Hematocrit 38.8 38.7 - 51.1 % 06/08/2024 4:25 AM [facility] MCV 95.3 80.0 - 98.0 fL 06/08/2024 4:25 AM [facility] MCH 32.9 26.7 - 33.6 pg 06/08/2024 4:25 AM [facility] MCHC 34.5 31.7 - 36.3 g/dL 06/08/2024 4:25 AM [facility] RDW-CV 13.2 11.3 - 14.8 % 06/08/2024 4:25 AM [facility] Platelet Count 166 150 - 420 x10E9/L 06/08/2024 4:25 AM [facility] MPV 12.5(H) 7.8 - 11.4 fL 06/08/2024 4:25 AM [facility] Blood BLOOD SPECIMEN / Unknown Venipuncture / Unknown 06/08/2024 4:11 AM [facility] 06/08/2024 4:18 AM [facility] Lilliam Isaacs MATHEMATICS INSTRUCTOR-HYDRAULIC OIL TOOL OPERATOR LAB - HEMATOLOGY ORDERABLES Performing Organization Address City/State/[facility] Co de Phone Number [facility] [address] [place] [address], [facility] [phone] * (ABNORMAL) BASIC METABOLIC PANEL (CALCIUM TOTAL) (06/08/2024 4:11 AM [facility]) BUN 14 7 - 26 mg/dL 06/08/2024 4:58 AM [facility] Creatinine 0.57(L) 0.71 - 1.16 mg/dL 06/08/2024 4:58 AM [facility] Sodium 140 136 - 145 mmol/L 06/08/2024 4:58 AM [facility] Potassium 3.9 3.5 - 4.5 mmol/L 06/08/2024 4:58 AM [facility] Chloride 108(H) 98 - 107 mmol/L 06/08/2024 4:58 AM [facility] CO2 27 22 - 29 mmol/L 06/08/2024 4:58 AM [facility] Glucose 105(H) 70 - 99 mg/dL 06/08/2024 4:58 AM [facility] Calcium 9.3 8.4 - 10.2 mg/dL 06/08/2024 4:58 AM [facility] Anion Gap 5(L) 6 - 16 06/08/2024 4:58 AM [facility] BUN/Creatinine Ratio 25(H) 7 - 23 06/08/2024 4:58 AM [facility] Osmolality Calculated 291 275 - 295 mOsm/kg 06/08/2024 4:58 AM [facility] eGFR by CKD-EPI >90 >=90 mL/min/1.7 3 m2 06/08/2024 4:58 AM [facility] Blood BLOOD SPECIMEN / Unknown Venipuncture / Unknown 06/08/2024 4:11 AM [facility] 06/08/2024 4:18 AM [facility] Lilliam Isaacs APRNHYDRAULIC OIL TOOL OPERATOR LAB - CHEMISTRY ORDERABLES [address] [address], [facility] [phone] * PHOSPHORUS BLOOD (06/08/2024 4:11 AM [facility]) Only the most recent of2 resultswithin the time period is included. Phosphorus 3.0 2.8 - 5.1 mg/dL 06/08/2024 4:49 AM [facility] Blood BLOOD SPECIMEN / Unknown Venipuncture / Unknown 06/08/2024 4:11 AM [facility] 06/08/2024 4:18 AM [facility] Lilliam Ferny MATHEMATICS INSTRUCTORHYDRAULIC OIL TOOL OPERATOR LAB - CHEMISTRY ORDERABLES [address] [address], [facility] [phone] * MAGNESIUM BLOOD (06/08/2024 4:11 AM [facility]) Only the most recent of2 resultswithin the time period is included. Magnesium 1.9 1.6 - 2.6 mg/dL 06/08/2024 4:58 AM [facility] Blood BLOOD SPECIMEN / Unknown Venipuncture / Unknown 06/08/2024 4:11 AM [facility] 06/08/2024 4:18 AM [facility] Lilliam Isaacs MATHEMATICS INSTRUCTOR-HYDRAULIC OIL TOOL OPERATOR LAB - CHEMISTRY ORDERABLES [facility] [address] [place] [address], [facility] [phone] * (ABNORMAL) LIPID PROFILE (06/08/2024 4:11 AM [facility]) [facility] Cholesterol Total 136 <200 mg/dL 06/08/2024 4:49 AM [facility] HDL 35(L) >40 mg/dL 06/08/2024 4:49 AM [facility] Comment: ATP III Classification of HDL Cholesterol: ? <40 mg/dL: ??Considered a major risk factor. ? >60 mg/dL: ??Considered a negative risk factor. ? LDL Calculated 88 <100 mg/dL 06/08/2024 4:49 AM [facility] Comment: ATP III Classification of LDL Cholesterol: ?<100 mg/dL: ??Optimal ? 100 - 129 mg/dL: ??Near Optimal/Above Optimal ? 130 - 159 mg/dL: ??Borderline High ? 160 - 189 mg/dL: ??High ?>190 mg/dL: ??Very High ? Triglycerides 65 <150 mg/dL 06/08/2024 4:49 AM [facility] Comment: ATP III Classification of Triglycerides: ?<150 mg/dL: ??Normal ? 150 - 199 mg/dL: ??Borderline High ? 200 - 400 mg/dL: ??High ?>500 mg/dL: ??Very High Blood BLOOD SPECIMEN / Unknown Venipuncture / Unknown 06/08/2024 4:11 AM [facility] 06/08/2024 4:18 AM [facility] Lilliam Isaacs MATHEMATICS INSTRUCTOR-HYDRAULIC OIL TOOL OPERATOR LAB - CHEMISTRY ORDERABLES [facility] [address] [place] [phone], [facility] [phone] * (ABNORMAL) URINALYSIS REFLEX MICROSCOPIC REFLEX CULTURE (06/07/2024 10:24 PM [facility]) Only the most recent of2 resultswithin the time period is included. Color UA Yellow Straw, Yellow 06/07/2024 11:05 PM [facility] Clarity UA Clear Clear 06/07/2024 11:05 PM [facility] Specific [place] UA >1.060(H) 1.005 - 1.030 06/07/2024 11:05 PM [facility] pH UA 7.0 5.0 - 8.0 pH 06/07/2024 11:05 PM [facility] Protein UA Negative Negative 06/07/2024 11:05 PM [facility] Glucose UA Negative Negative 06/07/2024 11:05 PM [facility] Ketone UA 1+(A) Negative 06/07/2024 11:05 PM [facility] Bilirubin UA Negative Negative 06/07/2024 11:05 PM [facility] Blood UA Negative Negative 06/07/2024 11:05 PM [facility] Nitrite UA Negative Negative 06/07/2024 11:05 PM [facility] Leukocyte Esterase Negative Negative 06/07/2024 11:05 PM [facility] Urobilinogen UA 2.0(A) Negative mg/dL 06/07/2024 11:05 PM [facility] Comment UA Microscopic not indicated. 06/07/2024 11:05 PM [facility] Urine URINE SPECIMEN OBTAINED BY CLEAN CATCH PROCEDURE / Unknown Collection / Unknown 06/07/2024 10:24 PM [facility] 06/07/2024 10:27 PM [facility] - 06/07/2024 11:05 PM [facility] Elizabeth Hernandez MD LAB - URINALYSIS ORD ERABLES [facility] [address] [place] [address], [facility] [phone] * (ABNORMAL) CBC W AUTO DIFFERENTIAL (06/07/2024 8:01 PM [facility]) Only the most recent of2 resultswithin the time period is included. WBC 9.2 4.0 - 10.7 x10E9/L 06/07/2024 8:17 PM [facility] RBC Count 4.45 4.30 - 5.80 x10E12/L 06/07/2024 8:17 PM [facility] Hemoglobin 14.4 13.3 - 17.5 g/dL 06/07/2024 8:17 PM [facility] Hematocrit 42.4 38.7 - 51.1 % 06/07/2024 8:17 PM [facility] MCV 95.3 80.0 - 98.0 fL 06/07/2024 8:17 PM [facility] MCH 32.4 26.7 - 33.6 pg 06/07/2024 8:17 PM [facility] MCHC 34.0 31.7 - 36.3 g/dL 06/07/2024 8:17 PM [facility] RDW-CV 13.5 11.3 - 14.8 % 06/07/2024 8:17 PM [facility] Platelet Count 184 150 - 420 x10E9/L 06/07/2024 8:17 PM [facility] MPV 13.0(H) 7.8 - 11.4 fL 06/07/2024 8:17 PM [facility] Neutrophil % 69.2 41.0 - 74.0 % 06/07/2024 8:17 PM [facility] Lymphocyte % 20.6 17.0 - 47.0 % 06/07/2024 8:17 PM [facility] Monocyte % 7.6 3.0 - 11.0 % 06/07/2024 8:17 PM [facility] Eosinophil % 2.2 0.0 - 7.0 % 06/07/2024 8:17 PM [facility] Basophil % 0.2 0.0 - 1.6 % 06/07/2024 8:17 PM [facility] Immature Granulocytes % 0.2 0.0 - 1.0 % 06/07/2024 8:17 PM [facility] Neutrophil Absolute 6.40 1.60 - 7.50 x10E9/L 06/07/2024 8:17 PM [facility] Lymphocyte Absolute 1.90 1.00 - 4.40 x10E9/L 06/07/2024 8:17 PM [facility] Monocyte Absolute 0.70 0.15 - 1.00 x10E9/L 06/07/2024 8:17 PM [facility] Eosinophil Absolute 0.20 0.00 - 0.60 x10E9/L 06/07/2024 8:17 PM [facility] Basophil Absolute 0.02 0.00 - 0.13 x10E9/L 06/07/2024 8:17 PM [facility] Blood BLOOD SPECIMEN / Unknown Venipuncture / Unknown 06/07/2024 8:01 PM [facility] 06/07/2024 8:07 PM [facility] Elizabeth Hernandez MD LAB - HEMATOLOGY ORD ERABLES Performing Organization Address [facility]/State/ZIP Co de Phone Number [facility] [address] [place] [address] [phone] * (ABNORMAL) COMPREHENSIVE METABOLIC PANEL (06/07/2024 8:01 PM [facility]) Only the most recent of2 resultswithin the time period is included. BUN 15 7 - 26 mg/dL 06/07/2024 8:36 PM [facility] Creatinine 0.62(L) 0.71 - 1.16 mg/dL 06/07/2024 8:36 PM [facility] Sodium 140 136 - 145 mmol/L 06/07/2024 8:36 PM [facility] Potassium 4.8(H) 3.5 - 4.5 mmol/L 06/07/2024 8:36 PM [facility] Chloride 106 98 - 107 mmol/L 06/07/2024 8:36 PM [facility] CO2 26 22 - 29 mmol/L 06/07/2024 8:36 PM [facility] Glucose 108(H) 70 - 99 mg/dL 06/07/2024 8:36 PM [facility] Calcium 9.5 8.4 - 10.2 mg/dL 06/07/2024 8:36 PM [facility] Protein Total 7.5 6.0 - 8.3 g/dL 06/07/2024 8:36 PM [facility] Albumin 3.7 3.4 - 5.0 g/dL 06/07/2024 8:36 PM [facility] Bilirubin Total 0.6 0.2 - 1.2 mg/dL 06/07/2024 8:36 PM [facility] Alkaline Phosphatase 90 40 - 150 U/L 06/07/2024 8:36 PM [facility] ALT 19 5 - 55 U/L 06/07/2024 8:36 PM [facility] AST 27 5 - 34 U/L 06/07/2024 8:36 PM [facility] Anion Gap 8 6 - 16 06/07/2024 8:36 PM [facility] BUN/Creatinine Ratio 24(H) 7 - 23 06/07/2024 8:36 PM [facility] Osmolality Calculated 291 275 - 295 mOsm/kg 06/07/2024 8:36 PM [facility] Albumin/Globulin Ratio 1.0(L) 1.1 - 2.3 06/07/2024 8:36 PM [facility] eGFR by CKD-EPI >90 >=90 mL/min/1.7 3 m2 06/07/2024 8:36 PM [facility] Blood BLOOD SPECIMEN / Unknown Venipuncture / Unknown 06/07/2024 8:01 PM [facility] 06/07/2024 8:07 PM [facility] Elizabeth Hernandez MD LAB - CHEMISTRY MARSHAL JOSE ALBERTOSHILPA Performing Organization Address City/[facility]/ZIP Co de Phone Number [address] [address], [facility] [phone] * LIPASE BLOOD (06/07/2024 8:01 PM [facility]) Lipase 14 8 - 78 U/L 06/07/2024 8:36 PM [facility] Blood BLOOD SPECIMEN / Unknown Venipuncture / Unknown 06/07/2024 8:01 PM [facility] 06/07/2024 8:07 PM [facility] Narrative [facility] - 06/07/2024 8:36 PM [facility] Lipase results from the [employer] Al[employer] analyzer may not be comparable with other methodologies. Elizabeth Hernandez MD LAB - CHEMISTRY MARSHAL MEDEROS Performing Organization Address [facility]/ZIP Co de Phone Number [address] [address], [facility] [phone] * CT Chest Abdomen Pelvis W Cont (05/15/2024 2:44 PM [facility]) Anatomical Region Laterality Modality Chest, Abdomen, Pelvis Computed Tomography 05/15/2024 3:06 PM [facility] Impressions 05/15/2024 4:01 PM [facility] Impression 1. Debris noted in the right mainstem bronchus and the bilateral lower lobe peribronchial wall thickening suggestive of aspiration. 2. Centrilobular emphysematous disease of the lungs. 3. Bilateral nonobstructive nephrolithiasis. 4. Colonic diverticulosis without evidence of diverticulitis. 5. Prostatomegaly. Recommend correlation with PSA. Report dictated by Flavio Stover MD(physician vice president). I, John Graham MD have personally reviewed and interpreted this examination/study. > Interpreting Provider: John Graham MD on 05/15/2024 4:01 PM Narrative 05/15/2024 4:01 PM [facility] PROCEDURE: ??CT CHEST ABDOMEN PELVIS W CONT, DATE/TIME OF EXAM: ??05/15/2024 2:44 PM, LOCATION ??[facility] INDICATION: R10.84: Abdominal pain, generalized ADDITIONAL CLINICAL INFORMATION: Ordering Provider Reason For Exam: ??abdominal pain COMPARISON: None. EXAMINATION: Computed tomography (CT) of the chest, abdomen, and pelvis with contrast TECHNIQUE: CT of the chest, abdomen, and pelvis was performed after the uneventful administration of 100 mL of Isovue 370 intravenous contrast according to standard protocol. Findings: Devices/lines: *Tracheostomy tube projects in the midthoracic trachea Chest: Lower neck and Axilla: Normal thyroid. No supraclavicular or axillary lymphadenopathy. Thoracic Vessels: The thoracic aorta is normal in course and caliber. The pulmonary artery is normal in caliber. Lungs/Pleura/airways: Debris is noted within the right mainstem bronchus. There is bilateral lower lobe peribronchial wall thickening. Mild centrilobular emphysematous changes. Dependent subsegmental atelectatic changes are noted in the lungs. No pleural effusion. No pneumothorax. A 3 mm groundglass pleural-based nodules noted in the right upper lobe (series 4, image 37). Heart and Pericardium: The cardiac chambers are normal in size. No pericardial fluid or thickening is present. Coronary artery stents. Mediastinum and Almita: No mediastinal mass is present. No enlarged lymph nodes are present. Abdomen/pelvis: Liver and Gall Bladder: Subcentimeter hypoattenuating lesions are noted in the liver which are too small to be characterized but likely represent cysts. Normal gallbladder. No intra or extrahepatic biliary dilatation. Spleen: Normal. Pancreas: Normal. Incidental finding of pancreatic divisum. Kidneys and Adrenals: Normal adrenals. The kidneys enhance symmetrically without evidence of hydronephrosis. Bilateral nonobstructive nephrolithiasis. Gastrointestinal: A percutaneous gastrostomy tube is present. Colonic diverticulosis without evidence of diverticulitis. No evidence of bowel obstruction. Normal appendix. Hyperdense stool is noted within the large bowel. Mesentery/Peritoneum/Retroperitoneum: No free intraperitoneal air or fluid. No lymphadenopathy. Pelvic Structures: Normal bladder. Enlarged prostate measuring 5.3 cm in the transverse dimension. Vasculature: The aorta is atherosclerotic. Bones and Soft tissues: Bone windows demonstrate no suspicious lytic or blastic lesions. The visible osseous structures are intact. Degenerative changes are seen in the spine. Chronic appearing compression deformity of the L3 vertebral body with 30% height loss. No retropulsion. Gynecomastia. Bilateral fat-containing inguinal hernias. Procedure Note John Graham MD - 05/15/2024 PROCEDURE: CT CHEST ABDOMEN PELVIS W CONT, DATE/TIME OF EXAM:05/15/2024 2:44 PM, LOCATION [facility] INDICATION: R10.84: Abdominal pain, generalized ADDITIONAL CLINICAL INFORMATION: Ordering Provider Reason For Exam: abdominal pain COMPARISON: None. EXAMINATION: Computed tomography (CT) of the chest, abdomen, and pelvis with contrast TECHNIQUE: CT of the chest, abdomen, and pelvis was performed after the uneventful administration of 100 mL of Isovue 370 intravenous contrast according to standard protocol. Findings: Devices/lines: *Tracheostomy tube projects in the midthoracic trachea Chest: Lower neck and Axilla: Normal thyroid. No supraclavicular or axillary lymphadenopathy. Thoracic Vessels: The thoracic aorta is normal in course and caliber. The pulmonary arteryis normal in caliber. Lungs/Pleura/airways: Debris is noted within the right mainstem bronchus. There is bilateral lower lobe peribronchial wall thickening. Mild centrilobular emphysematous changes. Dependent subsegmental atelectatic changes are noted in the lungs. No pleural effusion. No pneumothorax. A 3 mm groundglass pleural-based nodules noted in the right upper lobe (series 4, image 37). Heart and Pericardium: The cardiac chambers are normal in size. No pericardial fluid orthickening is present. Coronary artery stents. Mediastinum and Almita: No mediastinal mass is present. No enlarged lymph nodes are present. Abdomen/pelvis: Liver and Gall Bladder: Subcentimeter hypoattenuating lesions are noted in the liver which aretoo small to be characterized but likely represent cysts. Normalgallbladder. No intra or extrahepatic biliary dilatation. Spleen: Normal. Pancreas: Normal. Incidental finding of pancreatic divisum. Kidneys and Adrenals: Normal adrenals. The kidneys enhance symmetrically without evidence of hydronephrosis. Bilateral nonobstructive nephrolithiasis. Gastrointestinal: A percutaneous gastrostomy tube is present. Colonic diverticulosiswithout evidence of diverticulitis. No evidence of bowel obstruction. Normal appendix. Hyperdense stool is noted within the large bowel. Mesentery/Peritoneum/Retroperitoneum: No free intraperitoneal air or fluid. No lymphadenopathy. Pelvic Structures: Normal bladder. Enlarged prostate measuring 5.3 cm in the transverse dimension. Vasculature: The aorta is atherosclerotic. Bones and Soft tissues: Bone windows demonstrate no suspicious lytic or blastic lesions. The visible osseous structures are intact. Degenerative changes are seen inthe spine. Chronic appearing compression deformity of the L3 vertebral body with 30% height loss. No retropulsion. Gynecomastia. Bilateral fat-containing inguinal hernias. Impression 1. Debris noted in the right mainstem bronchus and the bilateral lowerlobe peribronchial wall thickening suggestive of aspiration. 2. Centrilobular emphysematous disease of the lungs. 3. Bilateral nonobstructive nephrolithiasis. 4. Colonic diverticulosis without evidence of diverticulitis. 5. Prostatomegaly. Recommend correlation with PSA. Report dictated by lFavio Stover MD(physician vice president). I, John Graham MD have personally reviewed and interpreted this examination/study. > Interpreting Provider: John Graham MD on 05/15/2024 4:01 PM Caio Elder MD CT ORDERABLES * CT CERVICAL SPINE WO CONTRAST (04/30/2024 11:05 PM [facility]) Anatomical Region Laterality Modality Spine Computed Tomogra phy 04/30/2024 11:1 6 PM [facility] Impressions 04/30/2024 11:34 PM [facility] IMPRESSION: 1. No acute intracranial hemorrhage or visible contusion. 2. 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 There is no evidence of transependymal flow. 3. Stable chronic supratentorial white matter changes on multiple lacunar infarctions in bilateral thalami and left lentiform pelvis. 4. No evidence of acute fracture or traumatic disc herniation in the cervical spine. > Interpreting Provider: Jose Alejandro Lora MD on 04/30/2024 11:34 PM Narrative 04/30/2024 11:34 PM [facility] PROCEDURE: ??CT HEAD WO CONTRAST, CT CERVICAL SPINE WO CONTRAST DATE/TIME OF EXAM: ??04/30/2024 11:05 PM CLINICAL INFORMATION: None relevant/not provided if blank. Indication: W18.30XA: Ground-level fall EXAMINATION: ?? 1. CT OF THE HEAD WITHOUT CONTRAST 2. CT OF THE CERVICAL SPINE WITHOUT CONTRAST HISTORY: W18.30XA: Ground-level fall COMPARISON: CT head without contrast, 06/18/2023 TECHNIQUE: CT of the head and cervical spine were performed without contrast according to standard protocol. The CT head study was subjected to viz. ICH for detection of intracranial hemorrhage. FINDINGS: HEAD: No acute intra- or extra-axial hemorrhage is identified. The basilar cisterns are patent. No mass effect or midline shift is seen. There is no evidence of interval infarction. 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 Confluent white matter hypoattenuation in bilateral porter radiata and centrum semiovale sparing the U fibers has not changed and is suggestive of chronic sequelae of underlying small vessel ischemic disease. There are vascular calcifications of bilateral carotid siphons. There is a stable lacunar infarction of left thalamus. Additional multiple small low coronary infarctions in the left lentiform nucleus are present. The lacunar infarction of right thalamus is more conspicuously visible than on the previous examination. The garber-white matter differentiation otherwise appears normal. The generalized moderate cerebral and cerebellar atrophy is similar to the prior study. There is a generalized ventriculomegaly. The bicoronal diameter of the lateral ventricles at the level of foramen of Monro is 44 mm on the current study (series 6, image 35) as compared to 42 mm on the prior study (series 5, image 6). The transverse diameter of the third ventricle in its midportion on axial plane is currently 16.6 mm (series 4, image 19) as compared to 14.6 mm on the prior study (series 3, image 21). Therefore, there has been further interval enlargement of the ventricles without significant change in the degree of cerebral or cerebellar atrophy. 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 There is severe tibial periventricular white matter hypoattenuation has not changed to indicate transependymal flow. The orbits and orbital contents are normal. The right maxillary antrum is widened and there is a masslike opacity through the mass extending into the maxillary sinus and along the lateral wall of the nasal cavity (series 3, image 71; series 4, image 29; series 6, images 18-24). Opacification of the remainder of the right maxillary sinus is due to retained fluid. There is partial opacification of some of bilateral ethmoid air cells by thickened mucosa. The bilateral medial ear cavities and mastoids air cells are clear. No acute fracture or scalp swelling is identified. CERVICAL SPINE: There is straightening of cervical lordosis. No fracture, spondylolisthesis, perched facets or suspicious intrinsic bony lesion is identified. The craniocervical junction including the predental space is normal. The intervertebral disc spaces are normal in heights. No posterior disc abnormality, blood in central canal or central canal stenosis is seen. 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 There are varying degrees of mild uncovertebral joint osteoarthritis with the same degree of neural foraminal stenosis at these levels. There is atherosclerotic calcification of the carotid bifurcations. The imaged lung apices are clear. Procedure Note Jose Alejandro Lora MD - 04/30/2024 PROCEDURE: CT HEAD WO CONTRAST, CT CERVICAL SPINE WO CONTRAST DATE/TIME OF EXAM: 04/30/2024 11:05 PM CLINICAL INFORMATION: None relevant/not provided if blank. Indication: W18.30XA: Ground-level fall EXAMINATION: 1. CT OF THE HEAD WITHOUT CONTRAST 2. CT OF THE CERVICAL SPINE WITHOUT CONTRAST HISTORY: W18.30XA: Ground-level fall COMPARISON: CT head without contrast, 06/18/2023 TECHNIQUE: CT of the head and cervical spine were performed without contrast according to standard protocol. The CT head study was subjectedto viz. ICH for detection of intracranial hemorrhage. FINDINGS: HEAD: No acute intra- or extra-axial hemorrhage is identified. The basilar cisterns are patent. No mass effect or midline shift is seen. There isno evidence of interval infarction. 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 Confluent white matter hypoattenuation inbilateral porter radiata and centrum semiovale sparing the U fibers has notchanged and is suggestive of chronic sequelae of underlying small vesselischemic disease. There are vascular calcifications of bilateral carotid siphons. There is a stable lacunar infarction of left thalamus. Additionalmultiple small low coronary infarctions in the left lentiform nucleus arepresent. The lacunar infarction of right thalamus is more conspicuously visiblethan on the previous examination. The garber-white matter differentiation otherwise appears normal. The generalized moderate cerebral and cerebellar atrophy is similar tothe prior study. There is a generalized ventriculomegaly. The bicoronal diameter of the lateral ventricles at the level of foramen of Monro is44 mm on the current study (series 6, image 35) as compared to 42 mm on the prior study (series 5, image 6). The transverse diameter of the third ventricle in its midportion on axial plane is currently 16.6 mm (series4, image 19) as compared to 14.6 mm on the prior study (series 3, image21). Therefore, there has been further interval enlargement of the ventricles without significant change in the degree of cerebral or cerebellaratrophy. 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 There is severetibial periventricular white matter hypoattenuation has not changed to indicate transependymal flow. The orbits and orbital contents are normal. The right maxillary antrumis widened and there is a masslike opacity through the mass extending intothe maxillary sinus and along the lateral wall of the nasal cavity (series3, image 71; series 4, image 29; series 6, images 18-24). Opacification ofthe remainder of the right maxillary sinus is due to retained fluid. Thereis partial opacification of some of bilateral ethmoid air cells bythickened mucosa. The bilateral medial ear cavities and mastoids air cells areclear. No acute fracture or scalp swelling is identified. CERVICAL SPINE: There is straightening of cervical lordosis. No fracture, spondylolisthesis, perched facets or suspicious intrinsic bony lesion is identified. The craniocervical junction including the predental space is normal. The intervertebral disc spaces are normal in heights. Noposterior disc abnormality, blood in central canal or central canal stenosis isseen. 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 There are varying degrees of mild uncovertebral joint osteoarthritis with the same degree of neural foraminal stenosis at these levels. There is atheroscleroticcalcification of the carotid bifurcations. The imaged lung apices are clear. IMPRESSION: 1. No acute intracranial hemorrhage or visible contusion. 2. Interval further enlargement of the ventricles despite is stable generalized cerebral and cerebellar atrophy suggestive of acommunicating normal pressure hydrocephalus. There is no evidence of transependymalflow. 3. 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 4. No evidence of acute fracture or traumatic disc herniation in the cervical spine. > Interpreting Provider: Jose Alejandro Lora MD on 04/30/2024 11:34 PM Elmo Medeiros MD CT ORDERABLES * CT HEAD WO CONTRAST (04/30/2024 11:05 PM [facility]) Anatomical Region Laterality Modality Head Computed Tomogra phy 04/30/2024 11:1 6 PM [facility] Impressions 04/30/2024 11:34 PM [facility] IMPRESSION: 1. No acute intracranial hemorrhage or visible contusion. 2. 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 There is no evidence of transependymal flow. 3. Stable chronic supratentorial white matter changes on multiple lacunar infarctions in bilateral thalami and left lentiform pelvis. 4. No evidence of acute fracture or traumatic disc herniation in the cervical spine. > Interpreting Provider: Jose Alejandro Lora MD on 04/30/2024 11:34 PM Narrative 04/30/2024 11:34 PM [facility] PROCEDURE: ??CT HEAD WO CONTRAST, CT CERVICAL SPINE WO CONTRAST DATE/TIME OF EXAM: ??04/30/2024 11:05 PM CLINICAL INFORMATION: None relevant/not provided if blank. Indication: W18.30XA: Ground-level fall EXAMINATION: ?? 1. CT OF THE HEAD WITHOUT CONTRAST 2. CT OF THE CERVICAL SPINE WITHOUT CONTRAST HISTORY: W18.30XA: Ground-level fall COMPARISON: CT head without contrast, 06/18/2023 TECHNIQUE: CT of the head and cervical spine were performed without contrast according to standard protocol. The CT head study was subjected to viz. ICH for detection of intracranial hemorrhage. FINDINGS: HEAD: No acute intra- or extra-axial hemorrhage is identified. The basilar cisterns are patent. No mass effect or midline shift is seen. There is no evidence of interval infarction. 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 Confluent white matter hypoattenuation in bilateral porter radiata and centrum semiovale sparing the U fibers has not changed and is suggestive of chronic sequelae of underlying small vessel ischemic disease. There are vascular calcifications of bilateral carotid siphons. There is a stable lacunar infarction of left thalamus. Additional multiple small low coronary infarctions in the left lentiform nucleus are present. The lacunar infarction of right thalamus is more conspicuously visible than on the previous examination. The garber-white matter differentiation otherwise appears normal. The generalized moderate cerebral and cerebellar atrophy is similar to the prior study. There is a generalized ventriculomegaly. The bicoronal diameter of the lateral ventricles at the level of foramen of Monro is 44 mm on the current study (series 6, image 35) as compared to 42 mm on the prior study (series 5, image 6). The transverse diameter of the third ventricle in its midportion on axial plane is currently 16.6 mm (series 4, image 19) as compared to 14.6 mm on the prior study (series 3, image 21). Therefore, there has been further interval enlargement of the ventricles without significant change in the degree of cerebral or cerebellar atrophy. 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 There is severe tibial periventricular white matter hypoattenuation has not changed to indicate transependymal flow. The orbits and orbital contents are normal. The right maxillary antrum is widened and there is a masslike opacity through the mass extending into the maxillary sinus and along the lateral wall of the nasal cavity (series 3, image 71; series 4, image 29; series 6, images 18-24). Opacification of the remainder of the right maxillary sinus is due to retained fluid. There is partial opacification of some of bilateral ethmoid air cells by thickened mucosa. The bilateral medial ear cavities and mastoids air cells are clear. No acute fracture or scalp swelling is identified. CERVICAL SPINE: There is straightening of cervical lordosis. No fracture, spondylolisthesis, perched facets or suspicious intrinsic bony lesion is identified. The craniocervical junction including the predental space is normal. The intervertebral disc spaces are normal in heights. No posterior disc abnormality, blood in central canal or central canal stenosis is seen. 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 There are varying degrees of mild uncovertebral joint osteoarthritis with the same degree of neural foraminal stenosis at these levels. There is atherosclerotic calcification of the carotid bifurcations. The imaged lung apices are clear. Procedure Note Jose Alejandro Lora MD - 04/30/2024 PROCEDURE: CT HEAD WO CONTRAST, CT CERVICAL SPINE WO CONTRAST DATE/TIME OF EXAM: 04/30/2024 11:05 PM CLINICAL INFORMATION: None relevant/not provided if blank. Indication: W18.30XA: Ground-level fall EXAMINATION: 1. CT OF THE HEAD WITHOUT CONTRAST 2. CT OF THE CERVICAL SPINE WITHOUT CONTRAST HISTORY: W18.30XA: Ground-level fall COMPARISON: CT head without contrast, 06/18/2023 TECHNIQUE: CT of the head and cervical spine were performed without contrast according to standard protocol. The CT head study was subjectedto viz. ICH for detection of intracranial hemorrhage. FINDINGS: HEAD: No acute intra- or extra-axial hemorrhage is identified. The basilar cisterns are patent. No mass effect or midline shift is seen. There isno evidence of interval infarction. 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 Confluent white matter hypoattenuation inbilateral porter radiata and centrum semiovale sparing the U fibers has notchanged and is suggestive of chronic sequelae of underlying small vesselischemic disease. There are vascular calcifications of bilateral carotid siphons. There is a stable lacunar infarction of left thalamus. Additionalmultiple small low coronary infarctions in the left lentiform nucleus arepresent. The lacunar infarction of right thalamus is more conspicuously visiblethan on the previous examination. The garber-white matter differentiation otherwise appears normal. The generalized moderate cerebral and cerebellar atrophy is similar tothe prior study. There is a generalized ventriculomegaly. The bicoronal diameter of the lateral ventricles at the level of foramen of Monro is44 mm on the current study (series 6, image 35) as compared to 42 mm on the prior study (series 5, image 6). The transverse diameter of the third ventricle in its midportion on axial plane is currently 16.6 mm (series4, image 19) as compared to 14.6 mm on the prior study (series 3, image21). Therefore, there has been further interval enlargement of the ventricles without significant change in the degree of cerebral or cerebellaratrophy. 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 There is severetibial periventricular white matter hypoattenuation has not changed to indicate transependymal flow. The orbits and orbital contents are normal. The right maxillary antrumis widened and there is a masslike opacity through the mass extending intothe maxillary sinus and along the lateral wall of the nasal cavity (series3, image 71; series 4, image 29; series 6, images 18-24). Opacification ofthe remainder of the right maxillary sinus is due to retained fluid. Thereis partial opacification of some of bilateral ethmoid air cells bythickened mucosa. The bilateral medial ear cavities and mastoids air cells areclear. No acute fracture or scalp swelling is identified. CERVICAL SPINE: There is straightening of cervical lordosis. No fracture, spondylolisthesis, perched facets or suspicious intrinsic bony lesion is identified. The craniocervical junction including the predental space is normal. The intervertebral disc spaces are normal in heights. Noposterior disc abnormality, blood in central canal or central canal stenosis isseen. 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 There are varying degrees of mild uncovertebral joint osteoarthritis with the same degree of neural foraminal stenosis at these levels. There is atheroscleroticcalcification of the carotid bifurcations. The imaged lung apices are clear. IMPRESSION: 1. No acute intracranial hemorrhage or visible contusion. 2. Interval further enlargement of the ventricles despite is stable generalized cerebral and cerebellar atrophy suggestive of acommunicating normal pressure hydrocephalus. There is no evidence of transependymalflow. 3. 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 4. No evidence of acute fracture or traumatic disc herniation in the cervical spine. > Interpreting Provider: Jose Alejandro Lora MD on 04/30/2024 11:34 PM Elmo Medeiros MD CT ORDERABLES * XR Chest 1Vw Portable (04/30/2024 10:13 PM TACO [facility]KER) Anatomical Region Laterality Modality Chest Digital Radiogra phy 04/30/2024 10:1 8 PM [facility]AC[facility]ER Narrative 05/01/2024 10:01 AM TACO MAKER PROCEDURE: ??XR CHEST 1VW PORTABLE, DATE/TIME OF EXAM: ??04/30/2024 10:13 PM, LOCATION ??[facility] INDICATION: W18.30XA: Ground-level fall ADDITIONAL CLINICAL INFORMATION: Ordering Provider Reason For Exam: ??ptx Technologist Note: Additional: COMPARISON: Chest radiograph from 06/25/2023 FINDINGS/IMPRESSION: *Tracheostomy in place. Right lower lung atelectasis. No pleural effusion or pneumothorax. The cardiomediastinal silhouette is normal. The visible bony thorax is intact. > Dictated by Virgil Clark MD I, Charles Hare MD have personally reviewed and interpreted this examination/study. > Interpreting Provider: Charles Hare MD on 05/01/2024 10:01 AM Procedure Note Charles Hare MD - 05/01/2024 PROCEDURE: XR CHEST 1VW PORTABLE, DATE/TIME OF EXAM: 04/30/2024 10:13PM, LOCATION [facility] INDICATION: W18.30XA: Ground-level fall ADDITIONAL CLINICAL INFORMATION: Ordering Provider Reason For Exam: ptx Technologist Note: Additional: COMPARISON: Chest radiograph from 06/25/2023 FINDINGS/IMPRESSION: *Tracheostomy in place. Right lower lung atelectasis. No pleural effusion or pneumothorax. The cardiomediastinal silhouette is normal. The visible bony thorax is intact. > Dictated by Virgil Clark MD I, Charles Hare MD have personally reviewed and interpreted this examination/study. > Interpreting Provider: Charles Hare MD on 05/01/2024 10:01 AM Elmo Medeiros MD DIAGNOSTIC ADAN GING ORDERABLES * XR Abdomen Kub (04/21/2024 5:41 PM TACO MAKER) Anatomical Region Laterality Modality Abdomen Digital Radiogra phy 04/21/2024 5:50 PM TACO MAKER Impressions 04/21/2024 6:02 PM [facility]AC[employer] [facility]ER IMPRESSION: 1.Nonobstructive bowel gas pattern. 2.G-tube in place. No extraluminal extravasation of contrast Report dictated by Virgil Clark MD I, Nj Escobar MD have personally reviewed and interpreted this examination/study. > Interpreting Provider: Nj Escobar MD on 04/21/2024 6:02 PM Narrative 04/21/2024 6:02 PM [facility]AC[facility]ER PROCEDURE: ??XR ABDOMEN KUB, DATE/TIME OF EXAM: ??04/21/2024 5:41 PM, LOCATION ??[facility] INDICATION: Z43.1: Attention to G-tube (HCC) ADDITIONAL CLINICAL INFORMATION: Ordering Provider Reason For Exam: ??G-tube placement confirmation Technologist Note: Additional: COMPARISON: Abdomen radiographs from 12/22/2023 FINDINGS: *G-tube in place. There is no dilatation of small or large bowel. Pneumoperitoneum cannot be excluded on this supine exam. Osseous structures are intact. No extraluminal extravasation of contrast Procedure Note Nj Escobar MD - 04/21/2024 PROCEDURE: XR ABDOMEN KUB, DATE/TIME OF EXAM: 04/21/2024 5:41 PM, LOCATION [facility] INDICATION: Z43.1: Attention to G-tube (HCC) ADDITIONAL CLINICAL INFORMATION: Ordering Provider Reason For Exam: G-tube placement confirmation Technologist Note: Additional: COMPARISON: Abdomen radiographs from 12/22/2023 FINDINGS: *G-tube in place. There is no dilatation of small or large bowel. Pneumoperitoneum cannotbe excluded on this supine exam. Osseous structures are intact. No extraluminal extravasation of contrast IMPRESSION: 1.Nonobstructive bowel gas pattern. 2.G-tube in place. No extraluminal extravasation of contrast Report dictated by Virgil Clark MD I, Nj Escobar MD have personally reviewed and interpreted this examination/study. > Interpreting Provider: Nj Escobar MD on 04/21/2024 6:02 PM Alden Del Rosario MD DIAGNOSTIC IMAG ING ORDERABLES * HEPATITIS C AB SCREEN RFLX NAAT QUANT (09/01/2022 2:05 AM CDT) Hepatitis C Antibody Non-react phan Non-reac tive 09/01/2022 3:09 AM CDT [facility] Comment:Hepatitis C Antibody screen indicates no serologic evidence of past or current infection with Hepatitis C Virus. Patients with unexplained liver disease who are immunocompromised or suspected of having acute Hepatitis C infection may benefit from Nucleic Acid Test (BASILIO) for Hepatitis C Viral RNA to confirm Hepatitis C status. Blood BLOOD SPECIMEN / Unknown Venipuncture / Unknown 09/01/2022 2:05 AM CDT 09/01/2022 2:15 AM CDT Artemio Abarca MD LAB - CHEMISTRY [facility] [address] [place] [address], [place] [phone] * HIV-1 HIV-2 ANTIBODY + HIV P24 AG PANEL (09/01/2022 2:05 AM CDT) HIV Antigen/Antibod y 1 & 2 Non-reacti ve Non-react phan 09/01/2022 3:09 AM CDT [facility] Comment:No Laboratory eviden ce of HIV infection. 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 Adv Directive/Living Will/POA 07/19/2019 4:10 PM * Full Code (Latest Code Status on File) Date Activated Date Inactivated Comments 06/08/2024 12:11 AM * Full Code Date Activated Date Inactivated Comments 02/17/2024 1:53 AM 02/20/2024 6:57 PM * Full Code Date Activated Date Inactivated Comments 09/06/2023 10:09 PM 09/09/2023 7:47 PM * Full Code Date Activated Date Inactivated Comments 06/09/2023 11:46 PM 06/28/2023 7:36 PM * Full Code Date Activated Date Inactivated Comments 02/23/2023 8:34 AM 02/28/2023 7:26 PM Care Teams Inventory Clerk Relationship Specialty Start Date End Date Dany Monsivais MD [address] [place] [phone] PCP - General Family Medicine 11/18/23 Elizabeth Sullivan, RN Weight And Test Bar Clerk 10/14/17
--- OUTSIDE RECORDS SUMMARY | 2024-06-08 05:28 | XMS_ITS | Patient Health Summary ---
Author Organization [facility] Address [address] [place] [address] Care Team Providers Care Video Journalist Name Role Phone Elizabeth Sullivan RN Unavailable [phone] Dany Monsivais MD Primary Care Provider [phone] [facility],non-owned Affiliates and Associated Physician Practices is amultiple site organization consisting of ambulatory clinics and hospital sitesin [place], [place], [place] and [place]. This disclosure is being madepursuant to the Care Everywhere program and may not contain all information available regarding this patient. Last updated 18.[facility] Allergies * Clonazepam(Psychiatric) -Medium Criticality Medications * Be aware that medications may not be up to date on this document. Alwaysverify current medications with the patient. * folic acid (Folvite) 1 MG tablet(Started 04/01/2022) 1 (one) tablet by Enteral Tube route once daily * thiamine (Vitamin B-1) 100 MG tablet(Started 04/01/2022) 1 (one) tablet by Enteral Tube route once daily * aspirin (Aspirin) 81 MG chew tablet 1 (one) tablet by Enteral Tube route once daily * artificial tears ophthalmic ointment(Started 10/22/2022) Instill into both eyes every 8 hours * metoprolol tartrate IR (Lopressor) 25 MG tablet(Started 12/15/2022) 1 (one) tablet by Enteral Tube route 2 times daily * acetaminophen (Tylenol) 325 MG tablet(Started 01/12/2023) 2 (two) tablets by Enteral Tube route every 6 hours as needed Maximum allowable Acetaminophen amount = 4 Grams (4000 mg) / 24 hours. * pantoprazole (Protonix) 40 MG packet(Started 01/12/2023) Take 1 (one) packet by mouth once daily * Calcium Carbonate Antacid (calcium carbonate, 500 mg elemental Ca/5 mL,) 1250 MG/5ML suspension(Started 02/28/2023) 5 mL by Enteral Tube route every 6 hours as needed * atorvastatin (Lipitor) 40 MG tablet(Started 02/28/2023) 1 (one) tablet by Enteral Tube route at bedtime * guaiFENesin (Robitussin) 100 MG/5ML solution(Started 02/28/2023) 15 mL by Enteral Tube route Every 6 Hours (03,09,15,21) * polyethylene glycol 3350 (Miralax) 17 g packet(Started 02/28/2023) 17 (seventeen) g by Enteral Tube route 2 times daily * senna (Senokot) 8.6 MG tablet(Started 03/01/2023) 1 (one) tablet by Enteral Tube route once daily * famotidine (Pepcid) 20 MG tablet(Started 02/28/2023) 1 (one) tablet by Enteral Tube route 2 times daily * bisacodyl (Dulcolax) 10 MG suppository Insert 1 (one) suppository into the rectum once daily as needed for Constipation * albuterol-ipratropium (Duo-Neb) 0.5-2.5 (3) MG/3ML nebulizer solution Inhale 3 mL by mouth every 6 hours as needed for Shortness of Breath or Wheezing * apixaban (Eliquis) 5 MG tablet(Started 09/10/2023) Take 1 (one) tablet by mouth 2 times daily Per G-tube * valproic acid (Depakene) 250 MG/5ML solution(Started 05/15/2024) 25 mL by Per G Tube route every 6 hours * levETIRAcetam (Keppra) 100 MG/ML oral solution(Started 05/15/2024) 20 mL by Enteral Tube route 2 times daily for 90 days 2 refills by 05/15/2025 * cloBAZam (Onfi) 10 MG tablet(Started 05/15/2024) Take 1 (one) tablet by mouth 2 times daily 5 refills by 11/11/2024 * lacosamide (Vimpat) 200 MG tablet(Started 05/15/2024) Take 1 (one) tablet by mouth 2 times daily for 90 days 2 refills by 11/11/2024 Ended Medications* levETIRAcetam (Keppra) 100 MG/ML oral solution(Started 06/28/2023)(Discontinued) 20 mL by Enteral Tube route 2 times daily for 90 days * lacosamide (Vimpat) 200 MG tablet(Started 06/28/2023)(Discontinued) 1 (one) tablet by Per G Tube route 2 times daily for 90 days * cloBAZam (Onfi) 10 MG tablet(Started 09/12/2023)(Discontinued) Take 1 (one) tablet by mouth 2 times daily 5 refills by 03/10/2024 * valproic acid (Depakene) 250 MG/5ML solution(Started 02/20/2024)(Discontinued) 25 mL by Per G Tube route every 6 hours * lacosamide (Vimpat) 200 MG tablet(Started 05/15/2024)(Discontinued) Take 1 (one) tablet by mouth 2 times daily for 90 days 2 refills by 11/11/2024 * doxycycline monohydrate 100 MG tablet(Started 05/15/2024)() Take 1 (one) tablet by mouth 2 times daily for 7 days Active Problems Problem Noted Date Diagnosed Date [...] arthritis, unspecifie d site 06/26/2015 Hyperlipidemia 04/14/2015 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 Therapeutic procedure Resolved Problems Problem Noted Date Diagnosed Date Resolved Date Dehydration 09/06/2023 09/20/2023 Weakness 06/09/2023 06/12/2023 Urinary tract infection with out hematuria, site unspecified 06/09/2023 06/12/2023 PEG tube malfunction 02/23/2023 023 Uncontrolled hypertension 11/28/2022 V-tach 11/27/2022 12/10/2022 Hemoptysis 11/25/2022 12/10/2022 Febrile [...] 12/30/2021 UTI (urinary tract infection) 11/29/2018 06/27/2019 Seizure 10/13/2017 09/24/2022 Syncope and collapse 06/26/2015 023 Immunizations * Covid Pfizer primary monovalent 12+ yr 0.3mL Purple cap(Given 04/06/2021) * INFLUENZA VACCINE(Given 02/01/2022, 03/16/2021, 03/07/2020, 03/14/2019, 03/24/2018, 06/15/2017, 06/23/2016, 04/23/2015, 03/19/2015) * INFLUENZA VACCINE, QUADR. (FLUZONE; FLULAVAL; FLUARIX; AFLURIA QUADRIVALENT; 6MO+), 0.5 ML (IIV4)(Given 03/24/2018, 06/15/2017, 06/23/2016, 03/19/2015) * PNEUMOCOCCAL PPV VACCINE(Given 02/04/2016, 08/13/2015, 02/07/2015) * TDAP (7yrs+)(Given 06/06/2017) * TDAP, HISTORIC VACCINE(Given 03/23/2017) Social History Tobacco Use Types Packs/Day Years [...] and heating? Not hard at all 06/19/2023 [facility] [place] [facility] Occupat ional [facility] - Occupational Stress [...] place to sleep or slept in a half-way (including now)? No 06/19/2023 Sex and Gender Information Value Date Recorded Sex Assigned at Not on file Gender Identity Not on file Sexual Orientation Not on file Last Filed Vital Signs Vital Sign Reading Time Taken Comments Blood Pressure 137/94 06/08/2024 4:00 AM [employer] Pulse 122 06/07/2024 8:04 PM [employer] Temperature 37.1 ??C (98.8 ??F) 06/07/2024 10:[address] Respiratory Rate 16 06/07/2024 8:04 PM [employer]IST Oxygen Saturation 97% 06/08/2024 5:06 AM [employer]IST Inhaled Oxygen Concentration 28% 06/08/2024 5 :06 AM [employer]IST Weight 77.1 kg (170 lb) 06/07/2024 5:08 PM [employer]IST Height 175.3 cm (5' 9 ) 06/07/2024 5:08 PM [employer]IST Body Mass Index 25.1 06/07/2024 5:08 PM [employer]IST Procedures * PHOSPHORUS BLOOD(Performed 06/08/2024) * MAGNESIUM BLOOD(Performed 06/08/2024) * LIPID PROFILE(Performed 06/08/2024) * CBC W/O DIFFERENTIAL(Performed 06/08/2024) * BASIC METABOLIC PANEL (CALCIUM TOTAL)(Performed 06/08/2024) * PT-INR SLH(Performed 06/08/2024) * URINALYSIS REFLEX MICROSCOPIC REFLEX CULTURE(Performed 06/07/2024) * LIPASE BLOOD(Performed 06/07/2024) * COMPREHENSIVE METABOLIC PANEL(Performed 06/07/2024) * CBC W AUTO DIFFERENTIAL(Performed 06/07/2024) * URINALYSIS REFLEX MICROSCOPIC REFLEX CULTURE(Performed 05/15/2024) * CT CHEST ABDOMEN PELVIS W CONT(Performed 05/15/2024) Performed for Abdominal pain, generalized * CBC W AUTO DIFFERENTIAL(Performed 05/15/2024) * COMPREHENSIVE METABOLIC PANEL(Performed 05/15/2024) * MAGNESIUM BLOOD(Performed 05/15/2024) * PHOSPHORUS BLOOD(Performed 05/15/2024) * CT CERVICAL SPINE WO CONTRAST(Performed 04/30/2024) Performed for Ground-level fall * CT HEAD WO CONTRAST(Performed 04/30/2024) Performed for Ground-level fall * XR CHEST 1VW PORTABLE(Performed 04/30/2024) Performed for Ground-level fall * XR ABDOMEN KUB(Performed 04/21/2024) Performed for Attention to G-tube (HCC) * GLUCOSE - POINT OF CARE(Performed 02/20/2024) * GLUCOSE - POINT OF CARE(Performed 02/20/2024) * GLUCOSE - POINT OF CARE(Performed 02/20/2024) * PHOSPHORUS BLOOD(Performed 02/20/2024) Performed for 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, not intractable, without status epilepticus (HCC) * MAGNESIUM BLOOD(Performed 02/20/2024) Performed for 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, not intractable, without status epilepticus (HCC) * CBC W/O DIFFERENTIAL(Performed 02/20/2024) Performed for 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, not intractable, without status epilepticus (HCC) * BASIC METABOLIC PANEL (CALCIUM TOTAL)(Performed 02/20/2024) Performed for 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, not intractable, without status epilepticus (HCC) * EKG 12-LEAD(Performed 02/19/2024) Performed for Hypertension, unspecified type * BASIC METABOLIC PANEL (CALCIUM TOTAL)(Performed 02/19/2024) Performed for Anemia, unspecified type, Elevated lactic acid level * CBC W/O DIFFERENTIAL(Performed 02/19/2024) Performed for 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, not intractable, without status epilepticus (HCC) * PHOSPHORUS BLOOD(Performed 02/19/2024) Performed for 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, not intractable, without status epilepticus (HCC) * MAGNESIUM BLOOD(Performed 02/19/2024) Performed for 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, not intractable, without status epilepticus (HCC) * BASIC METABOLIC PANEL (CALCIUM TOTAL)(Performed 02/19/2024) Performed for 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, not intractable, without status epilepticus (HCC) * LACTIC ACID BLOOD(Performed 02/19/2024) Performed for Seizures (CMS/HCC) * CK BLOOD(Performed 02/19/2024) Performed for Seizures (CMS/HCC) * PT EVAL AND TREAT(Performed 02/18/2024) * OT EVAL AND TREAT(Performed 02/18/2024) * LACOSAMIDE(Performed 02/18/2024) Performed for Severe protein-calorie malnutrition (HCC), Seizures (CMS/HCC) * LEVETIRACETAM LEVEL(Performed 02/18/2024) Performed for Severe protein-calorie malnutrition (HCC), Seizures (CMS/HCC) * PHOSPHORUS BLOOD(Performed 02/18/2024) Performed for 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, not intractable, without status epilepticus (HCC) * MAGNESIUM BLOOD(Performed 02/18/2024) Performed for 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, not intractable, without status epilepticus (HCC) * CBC W/O DIFFERENTIAL(Performed 02/18/2024) Performed for 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, not intractable, without status epilepticus (HCC) * BASIC METABOLIC PANEL (CALCIUM TOTAL)(Performed 02/18/2024) Performed for 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, not intractable, without status epilepticus (HCC) * URINALYSIS REFLEX MICROSCOPIC REFLEX CULTURE(Performed 02/17/2024) Performed for Encounter for feeding tube placement * CBC W/O DIFFERENTIAL(Performed 02/17/2024) Performed for 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, not intractable, without status epilepticus (HCC) * PHOSPHORUS BLOOD(Performed 02/17/2024) Performed for 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, not intractable, without status epilepticus (HCC) * MAGNESIUM BLOOD(Performed 02/17/2024) Performed for 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, not intractable, without status epilepticus (HCC) * BASIC METABOLIC PANEL (CALCIUM TOTAL)(Performed 02/17/2024) Performed for 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, not intractable, without status epilepticus (HCC) * XR ABDOMEN KUB(Performed 12/22/2023) Performed for Dislodged gastrostomy tube * COMPREHENSIVE METABOLIC PANEL(Performed 11/18/2023) * CBC W AUTO DIFFERENTIAL(Performed 11/18/2023) * XR NECK SOFT TISSUE(Performed 11/18/2023) Performed for Tracheostomy complication, unspecified complication type (HCC) * GLUCOSE - POINT OF CARE(Performed 09/14/2023) * COMPREHENSIVE METABOLIC PANEL(Performed 09/14/2023) * VAS LEFT VENOUS DUPLEX UE(Performed 09/14/2023) Performed for Hemoptysis, Deep vein thrombosis (DVT) of other vein of left upper extremity, unspecified chronicity (HCC) * TYPE + SCREEN PANEL(Performed 09/14/2023) * PTT SLH(Performed 09/14/2023) * CBC W AUTO DIFFERENTIAL(Performed 09/14/2023) * IR PERC G TO GJ TUBE EXCHANGE(Performed 09/09/2023) Performed for Dehydration, Gastrostomy tube dependent (HCC) * PTT SLH(Performed 09/09/2023) Performed for Anemia of chronic disease * CBC W/O DIFFERENTIAL(Performed 09/09/2023) Performed for Anemia of chronic disease * PTT SLH(Performed 09/09/2023) Performed for Thrombus * PT-INR SLH(Performed 09/09/2023) Performed for Thrombus * PHOSPHORUS BLOOD(Performed 09/09/2023) Performed for Dehydration * MAGNESIUM BLOOD(Performed 09/09/2023) Performed for Dehydration * BASIC METABOLIC PANEL (CALCIUM TOTAL)(Performed 09/09/2023) Performed for Dehydration * PTT SLH(Performed 09/08/2023) Performed for Thrombus * PTT SLH(Performed 09/08/2023) Performed for Thrombus * PT-INR SLH(Performed 09/08/2023) Performed for Thrombus * CBC W AUTO DIFFERENTIAL(Performed 09/08/2023) Performed for Thrombus * PHOSPHORUS BLOOD(Performed 09/08/2023) Performed for Dehydration * MAGNESIUM BLOOD(Performed 09/08/2023) Performed for Dehydration * BASIC METABOLIC PANEL (CALCIUM TOTAL)(Performed 09/08/2023) Performed for Dehydration * PHOSPHORUS BLOOD(Performed 09/07/2023) Performed for Dehydration * MAGNESIUM BLOOD(Performed 09/07/2023) Performed for Dehydration * BASIC METABOLIC PANEL (CALCIUM TOTAL)(Performed 09/07/2023) Performed for Dehydration * PT EVAL AND TREAT(Performed 09/07/2023) * OT EVAL AND TREAT(Performed 09/07/2023) * URINALYSIS W/MICROSCOPIC REFLEX TO CULTURE(Performed 09/06/2023) * TYPE + SCREEN PANEL(Performed 09/06/2023) * PT-INR SLH(Performed 09/06/2023) * MAGNESIUM BLOOD(Performed 09/06/2023) * COMPREHENSIVE METABOLIC PANEL(Performed 09/06/2023) * CBC W AUTO DIFFERENTIAL(Performed 09/06/2023) * DE SCOPE THRU TRACHEOSTOMY(Performed 08/29/2023) Performed for Oropharyngeal dysphagia, Tracheostomy dependence (HCC) * FL SWALLOWING FUNCTION STUDY(Performed 08/26/2023) Performed for Oropharyngeal dysphagia, Problems with swallowing and mastication * PHOSPHORUS BLOOD(Performed 06/28/2023) * MAGNESIUM BLOOD(Performed 06/28/2023) * COMPREHENSIVE METABOLIC PANEL(Performed 06/28/2023) * CBC W AUTO DIFFERENTIAL(Performed 06/28/2023) * PHOSPHORUS BLOOD(Performed 06/27/2023) * MAGNESIUM BLOOD(Performed 06/27/2023) * COMPREHENSIVE METABOLIC PANEL(Performed 06/27/2023) * CBC W AUTO DIFFERENTIAL(Performed 06/27/2023) * PHOSPHORUS BLOOD(Performed 06/26/2023) * MAGNESIUM BLOOD(Performed 06/26/2023) * COMPREHENSIVE METABOLIC PANEL(Performed 06/26/2023) * CBC W AUTO DIFFERENTIAL(Performed 06/26/2023) * VALPROIC ACID LEVEL(Performed 06/25/2023) * XR CHEST 1VW PORTABLE(Performed 06/25/2023) Performed for Aspiration pneumonitis (HCC) * VALPROIC ACID LEVEL(Performed 06/25/2023) * PHOSPHORUS BLOOD(Performed 06/25/2023) * MAGNESIUM BLOOD(Performed 06/25/2023) * COMPREHENSIVE METABOLIC PANEL(Performed 06/25/2023) * CBC W AUTO DIFFERENTIAL(Performed 06/25/2023) * DIFFERENTIAL MANUAL(Performed 06/24/2023) * CBC W AUTO DIFFERENTIAL(Performed 06/24/2023) * PHOSPHORUS BLOOD(Performed 06/24/2023) * MAGNESIUM BLOOD(Performed 06/24/2023) * COMPREHENSIVE METABOLIC PANEL(Performed 06/24/2023) * VALPROIC ACID LEVEL(Performed 06/23/2023) * PHOSPHORUS BLOOD(Performed 06/23/2023) * MAGNESIUM BLOOD(Performed 06/23/2023) * COMPREHENSIVE METABOLIC PANEL(Performed 06/23/2023) * CBC W AUTO DIFFERENTIAL(Performed 06/23/2023) * BASIC METABOLIC PANEL (CALCIUM TOTAL)(Performed 06/22/2023) * PHOSPHORUS BLOOD(Performed 06/22/2023) * MAGNESIUM BLOOD(Performed 06/22/2023) * COMPREHENSIVE METABOLIC PANEL(Performed 06/22/2023) * CBC W AUTO DIFFERENTIAL(Performed 06/22/2023) * CLOBAZAM QUANT BLOOD(Performed 06/21/2023) * VALPROIC ACID LEVEL(Performed 06/21/2023) * LEVETIRACETAM LEVEL(Performed 06/21/2023) * PHOSPHORUS BLOOD(Performed 06/21/2023) * MAGNESIUM BLOOD(Performed 06/21/2023) * COMPREHENSIVE METABOLIC PANEL(Performed 06/21/2023) * CBC W AUTO DIFFERENTIAL(Performed 06/21/2023) * CT HEAD WO CONTRAST(Performed 06/20/2023) Performed for Seizures (CMS/HCC) * PHOSPHORUS BLOOD(Performed 06/20/2023) * MAGNESIUM BLOOD(Performed 06/20/2023) * COMPREHENSIVE METABOLIC PANEL(Performed 06/20/2023) * CBC W AUTO DIFFERENTIAL(Performed 06/20/2023) * PHOSPHORUS BLOOD(Performed 06/19/2023) * MAGNESIUM BLOOD(Performed 06/19/2023) * COMPREHENSIVE METABOLIC PANEL(Performed 06/19/2023) * CBC W AUTO DIFFERENTIAL(Performed 06/19/2023) * PHOSPHORUS BLOOD(Performed 06/18/2023) * MAGNESIUM BLOOD(Performed 06/18/2023) * COMPREHENSIVE METABOLIC PANEL(Performed 06/18/2023) * CBC W AUTO DIFFERENTIAL(Performed 06/18/2023) * PHOSPHORUS BLOOD(Performed 06/17/2023) * MAGNESIUM BLOOD(Performed 06/17/2023) * COMPREHENSIVE METABOLIC PANEL(Performed 06/17/2023) * CBC W AUTO DIFFERENTIAL(Performed 06/17/2023) * PHOSPHORUS BLOOD(Performed 06/16/2023) * MAGNESIUM BLOOD(Performed 06/16/2023) * COMPREHENSIVE METABOLIC PANEL(Performed 06/16/2023) * CBC W AUTO DIFFERENTIAL(Performed 06/16/2023) * VANCOMYCIN LEVEL TROUGH(Performed 06/16/2023) * PHOSPHORUS BLOOD(Performed 06/15/2023) * MAGNESIUM BLOOD(Performed 06/15/2023) * COMPREHENSIVE METABOLIC PANEL(Performed 06/15/2023) * DIFFERENTIAL MANUAL(Performed 06/15/2023) * VANCOMYCIN LEVEL PEAK(Performed 06/15/2023) * CBC W AUTO DIFFERENTIAL(Performed 06/15/2023) * PHOSPHORUS BLOOD(Performed 06/14/2023) * MAGNESIUM BLOOD(Performed 06/14/2023) * COMPREHENSIVE METABOLIC PANEL(Performed 06/14/2023) * CBC W AUTO DIFFERENTIAL(Performed 06/14/2023) * CARDIAC EKG ORDER(Performed 06/13/2023) * CULTURE BLOOD(Performed 06/13/2023) * CULTURE BLOOD(Performed 06/13/2023) * VANCOMYCIN LEVEL PEAK(Performed 06/13/2023) * PHOSPHORUS BLOOD(Performed 06/13/2023) * MAGNESIUM BLOOD(Performed 06/13/2023) * COMPREHENSIVE METABOLIC PANEL(Performed 06/13/2023) * CBC W AUTO DIFFERENTIAL(Performed 06/13/2023) * PHOSPHORUS BLOOD(Performed 06/12/2023) * MAGNESIUM BLOOD(Performed 06/12/2023) * COMPREHENSIVE METABOLIC PANEL(Performed 06/12/2023) * CBC W AUTO DIFFERENTIAL(Performed 06/12/2023) * CULTURE BLOOD(Performed 06/11/2023) * BCID PANEL(Performed 06/11/2023) * CULTURE BLOOD(Performed 06/11/2023) * CULTURE BLOOD(Performed 06/11/2023) * CULTURE URINE(Performed 06/11/2023) * MRSA DNA PCR(Performed 06/11/2023) * URINALYSIS REFLEX TO MICROSCOPIC NO CULTURE(Performed 06/11/2023) * SUSCEPTIBILITY NOT OTHERWISE SPECIFIED(Performed 06/11/2023) * CULTURE SPUTUM+GRAM STAIN(Performed 06/11/2023) * CBC W/O DIFFERENTIAL(Performed 06/10/2023) * LACTIC ACID BLOOD REFLEX TO REPEAT(Performed 06/09/2023) * CT CHEST ABDOMEN PELVIS W CONT(Performed 06/09/2023) Performed for Elevated lactic acid level, Pleural effusion * CT HEAD WO CONTRAST(Performed 06/09/2023) Performed for Weakness * LACTIC ACID REPEAT REFLEX(Performed 06/09/2023) * LACTIC ACID BLOOD REFLEX TO REPEAT(Performed 06/09/2023) * SARS-COV-2 (COVID-19)+INFLU A+B PCR RAPID(Performed 06/09/2023) * BLOOD GASES ART + COOX PANEL(Performed 06/09/2023) * BLOOD GASES ANA + COOX PANEL(Performed 06/09/2023) * LACTIC ACID BLOOD REFLEX TO REPEAT(Performed 06/09/2023) * LACTIC ACID REPEAT REFLEX(Performed 06/09/2023) * LACTIC ACID BLOOD REFLEX TO REPEAT(Performed 06/09/2023) * BLOOD GASES ANA + COOX PANEL(Performed 06/09/2023) * LACTIC ACID REPEAT REFLEX(Performed 06/09/2023) * LACTIC ACID BLOOD REFLEX TO REPEAT(Performed 06/09/2023) * URINE MICROSCOPIC ONLY REFLEX TO CULTURE(Performed 06/09/2023) * URINALYSIS REFLEX MICROSCOPIC REFLEX CULTURE(Performed 06/09/2023) * CULTURE URINE(Performed 06/09/2023) * TROPONIN-I HIGH SENSITIVE REFLEX 1HOUR(Performed 06/09/2023) * LACTIC ACID REPEAT REFLEX(Performed 06/09/2023) * TSH REFLEX FREE T4(Performed 06/09/2023) * TROPONIN-I HIGH SENSITIVE BASELINE + 1HR(Performed 06/09/2023) * PT-INR SLH(Performed 06/09/2023) * LIPASE BLOOD(Performed 06/09/2023) * LACTIC ACID BLOOD REFLEX TO REPEAT(Performed 06/09/2023) * COMPREHENSIVE METABOLIC PANEL(Performed 06/09/2023) * CBC W AUTO DIFFERENTIAL(Performed 06/09/2023) * XR CHEST 1VW PORTABLE(Performed 06/09/2023) Performed for Weakness * EKG 12-LEAD(Performed 06/09/2023) Performed for Weakness * PROTEIN TOTAL BLOOD(Performed 02/28/2023) * BILIRUBIN TOTAL+DIRECT BLOOD PANEL(Performed 02/28/2023) * AST BLOOD(Performed 02/28/2023) * ALT(Performed 02/28/2023) * ALKALINE PHOSPHATASE BLOOD(Performed 02/28/2023) * RENAL FUNCTION PANEL(Performed 02/28/2023) * PROCALCITONIN LEVEL(Performed 02/28/2023) * MAGNESIUM BLOOD(Performed 02/28/2023) * CBC W/O DIFFERENTIAL(Performed 02/28/2023) * CULTURE SPUTUM+GRAM STAIN(Performed 02/27/2023) * PHOSPHORUS BLOOD(Performed 02/27/2023) * MAGNESIUM BLOOD(Performed 02/27/2023) * BASIC METABOLIC PANEL (CALCIUM TOTAL)(Performed 02/27/2023) * CBC W/O DIFFERENTIAL(Performed 02/27/2023) * BASIC METABOLIC PANEL (CALCIUM TOTAL)(Performed 02/26/2023) * XR CHEST 1VW PORTABLE(Performed 02/26/2023) Performed for HAP (hospital-acquired pneumonia) * PT EVAL AND TREAT(Performed 02/26/2023) * OT EVAL AND TREAT(Performed 02/26/2023) * IR PERC G TO GJ TUBE EXCHANGE(Performed 02/25/2023) Performed for Delayed gastric emptying, Aspiration into airway, sequela, Dysphagia, oropharyngeal phase * RENAL FUNCTION PANEL(Performed 02/25/2023) Performed for Protein-calorie malnutrition, unspecified severity (HCC) * MAGNESIUM BLOOD(Performed 02/25/2023) Performed for Protein-calorie malnutrition, unspecified severity (HCC) * CBC W/O DIFFERENTIAL(Performed 02/25/2023) Performed for Protein-calorie malnutrition, unspecified severity (HCC) * PT-INR SLH(Performed 02/24/2023) * MAGNESIUM BLOOD(Performed 02/24/2023) * BASIC METABOLIC PANEL (CALCIUM TOTAL)(Performed 02/24/2023) * CBC W/O DIFFERENTIAL(Performed 02/24/2023) * PHOSPHORUS BLOOD(Performed 02/24/2023) * PROCALCITONIN LEVEL(Performed 02/23/2023) Performed for Aspiration into airway, subsequent encounter * CT CHEST ABDOMEN PELVIS WO CONT(Performed 02/23/2023) Performed for PEG tube malfunction (HCC) * PHOSPHORUS BLOOD(Performed 02/23/2023) * MAGNESIUM BLOOD(Performed 02/23/2023) * LIPASE BLOOD(Performed 02/23/2023) * CBC W AUTO DIFFERENTIAL(Performed 02/23/2023) * COMPREHENSIVE METABOLIC PANEL(Performed 02/23/2023) * XR ABD OBSTR SERIES W CHEST 1VW(Performed 02/23/2023) Performed for PEG tube malfunction (HCC) * TRIGLYCERIDES BLOOD(Performed 01/14/2023) * PHOSPHORUS BLOOD(Performed 01/14/2023) * MAGNESIUM BLOOD(Performed 01/14/2023) * COMPREHENSIVE METABOLIC PANEL(Performed 01/14/2023) * CALCIUM IONIZED WHOLE BLOOD(Performed 01/14/2023) * CBC W AUTO DIFFERENTIAL(Performed 01/14/2023) * PHOSPHORUS BLOOD(Performed 01/13/2023) * MAGNESIUM BLOOD(Performed 01/13/2023) * COMPREHENSIVE METABOLIC PANEL(Performed 01/13/2023) * CALCIUM IONIZED WHOLE BLOOD(Performed 01/13/2023) * CBC W AUTO DIFFERENTIAL(Performed 01/13/2023) * XR CHEST 1VW PORTABLE(Performed 01/12/2023) Performed for Hypoxia, Acute respiratory failure with hypoxia (HCC) * PHOSPHORUS BLOOD(Performed 01/12/2023) * MAGNESIUM BLOOD(Performed 01/12/2023) * COMPREHENSIVE METABOLIC PANEL(Performed 01/12/2023) * CALCIUM IONIZED WHOLE BLOOD(Performed 01/12/2023) * CBC W AUTO DIFFERENTIAL(Performed 01/12/2023) * BLOOD GASES ANA + COOX PANEL(Performed 01/11/2023) * PHOSPHORUS BLOOD(Performed 01/11/2023) * MAGNESIUM BLOOD(Performed 01/11/2023) * COMPREHENSIVE METABOLIC PANEL(Performed 01/11/2023) * CALCIUM IONIZED WHOLE BLOOD(Performed 01/11/2023) * CBC W AUTO DIFFERENTIAL(Performed 01/11/2023) * PT EVAL AND TREAT(Performed 01/10/2023) * OT EVAL AND TREAT(Performed 01/10/2023) * VALPROIC ACID LEVEL(Performed 01/10/2023) * PHOSPHORUS BLOOD(Performed 01/10/2023) * MAGNESIUM BLOOD(Performed 01/10/2023) * COMPREHENSIVE METABOLIC PANEL(Performed 01/10/2023) * CALCIUM IONIZED WHOLE BLOOD(Performed 01/10/2023) * CBC W AUTO DIFFERENTIAL(Performed 01/10/2023) * PHOSPHORUS BLOOD(Performed 01/09/2023) * MAGNESIUM BLOOD(Performed 01/09/2023) * COMPREHENSIVE METABOLIC PANEL(Performed 01/09/2023) * CALCIUM IONIZED WHOLE BLOOD(Performed 01/09/2023) * CBC W AUTO DIFFERENTIAL(Performed 01/09/2023) * PHOSPHORUS BLOOD(Performed 01/08/2023) * MAGNESIUM BLOOD(Performed 01/08/2023) * COMPREHENSIVE METABOLIC PANEL(Performed 01/08/2023) * CALCIUM IONIZED WHOLE BLOOD(Performed 01/08/2023) * CBC W AUTO DIFFERENTIAL(Performed 01/08/2023) * BLOOD GASES ANA + COOX PANEL(Performed 01/07/2023) * PHOSPHORUS BLOOD(Performed 01/07/2023) * MAGNESIUM BLOOD(Performed 01/07/2023) * COMPREHENSIVE METABOLIC PANEL(Performed 01/07/2023) * CALCIUM IONIZED WHOLE BLOOD(Performed 01/07/2023) * CBC W AUTO DIFFERENTIAL(Performed 01/07/2023) * PHOSPHORUS BLOOD(Performed 01/06/2023) * MAGNESIUM BLOOD(Performed 01/06/2023) * COMPREHENSIVE METABOLIC PANEL(Performed 01/06/2023) * CALCIUM IONIZED WHOLE BLOOD(Performed 01/06/2023) * CBC W AUTO DIFFERENTIAL(Performed 01/06/2023) * PHOSPHORUS BLOOD(Performed 01/05/2023) * MAGNESIUM BLOOD(Performed 01/05/2023) * COMPREHENSIVE METABOLIC PANEL(Performed 01/05/2023) * CALCIUM IONIZED WHOLE BLOOD(Performed 01/05/2023) * CBC W AUTO DIFFERENTIAL(Performed 01/05/2023) * VALPROIC ACID LEVEL(Performed 01/04/2023) * PHOSPHORUS BLOOD(Performed 01/04/2023) * MAGNESIUM BLOOD(Performed 01/04/2023) * COMPREHENSIVE METABOLIC PANEL(Performed 01/04/2023) * CALCIUM IONIZED WHOLE BLOOD(Performed 01/04/2023) * CBC W AUTO DIFFERENTIAL(Performed 01/04/2023) * BLOOD GASES ART + COOX PANEL(Performed 01/03/2023) * PHOSPHORUS BLOOD(Performed 01/03/2023) * MAGNESIUM BLOOD(Performed 01/03/2023) * COMPREHENSIVE METABOLIC PANEL(Performed 01/03/2023) * CALCIUM IONIZED WHOLE BLOOD(Performed 01/03/2023) * CBC W AUTO DIFFERENTIAL(Performed 01/03/2023) * CK BLOOD(Performed 01/02/2023) * CORTISOL BLOOD AM(Performed 01/02/2023) * VITAMIN B12(Performed 01/02/2023) * FOLATE(Performed 01/02/2023) * FERRITIN(Performed 01/02/2023) * IRON + TRANSFERRIN PANEL(Performed 01/02/2023) * TRIGLYCERIDES BLOOD(Performed 01/02/2023) * PHOSPHORUS BLOOD(Performed 01/02/2023) * MAGNESIUM BLOOD(Performed 01/02/2023) * COMPREHENSIVE METABOLIC PANEL(Performed 01/02/2023) * CALCIUM IONIZED WHOLE BLOOD(Performed 01/02/2023) * CBC W AUTO DIFFERENTIAL(Performed 01/02/2023) * CT HEAD WO CONTRAST(Performed 01/01/2023) Performed for Acute encephalopathy * TSH REFLEX FREE T4(Performed 01/01/2023) * PHOSPHORUS BLOOD(Performed 01/01/2023) * MAGNESIUM BLOOD(Performed 01/01/2023) * COMPREHENSIVE METABOLIC PANEL(Performed 01/01/2023) * CALCIUM IONIZED WHOLE BLOOD(Performed 01/01/2023) * CBC W AUTO DIFFERENTIAL(Performed 01/01/2023) * AMMONIA(Performed 01/01/2023) * VALPROIC ACID LEVEL(Performed 12/31/2022) * LEVETIRACETAM LEVEL(Performed 12/31/2022) * BLOOD GASES ART + COOX PANEL(Performed 12/31/2022) * EKG 12-LEAD(Performed 12/31/2022) Performed for Status epilepticus (HCC) * PHOSPHORUS BLOOD(Performed 12/31/2022) * MAGNESIUM BLOOD(Performed 12/31/2022) * COMPREHENSIVE METABOLIC PANEL(Performed 12/31/2022) * CALCIUM IONIZED WHOLE BLOOD(Performed 12/31/2022) * BLOOD GASES ART + COOX PANEL(Performed 12/31/2022) * TROPONIN-I HIGH SENSITIVE(Performed 12/31/2022) * PT-INR [facility](Performed 12/31/2022) * LACTIC ACID BLOOD(Performed 12/31/2022) * CBC W AUTO DIFFERENTIAL(Performed 12/31/2022) * XR ABDOMEN KUB(Performed 12/31/2022) Performed for PEG (percutaneous endoscopic gastrostomy) status (HCC) * XR CHEST 1VW PORTABLE(Performed 12/31/2022) Performed for Tracheostomy in place (HCC) * CARDIAC EKG ORDER(Performed 12/17/2022) * GLUCOSE - POINT OF CARE(Performed 12/16/2022) * GLUCOSE - POINT OF CARE(Performed 12/16/2022) * RBC MORPHOLOGY(Performed 12/16/2022) * MAGNESIUM BLOOD(Performed 12/16/2022) * RENAL FUNCTION PANEL(Performed 12/16/2022) * CBC W AUTO DIFFERENTIAL(Performed 12/16/2022) * GLUCOSE - POINT OF CARE(Performed 12/15/2022) * GLUCOSE - POINT OF CARE(Performed 12/15/2022) * GLUCOSE - POINT OF CARE(Performed 12/15/2022) * MAGNESIUM BLOOD(Performed 12/15/2022) * RENAL FUNCTION PANEL(Performed 12/15/2022) * CBC W AUTO DIFFERENTIAL(Performed 12/15/2022) * GLUCOSE - POINT OF CARE(Performed 12/15/2022) * GLUCOSE - POINT OF CARE(Performed 12/15/2022) * GLUCOSE - POINT OF CARE(Performed 12/15/2022) * GLUCOSE - POINT OF CARE(Performed 12/14/2022) * GLUCOSE - POINT OF CARE(Performed 12/14/2022) * IR PERC G TO GJ TUBE EXCHANGE(Performed 12/14/2022) Performed for PEG (percutaneous endoscopic gastrostomy) status (HCC) * GLUCOSE - POINT OF CARE(Performed 12/14/2022) * XR CHEST 1VW PORTABLE(Performed 12/14/2022) Performed for COVID-19 * GLUCOSE - POINT OF CARE(Performed 12/14/2022) * MAGNESIUM BLOOD(Performed 12/14/2022) * RENAL FUNCTION PANEL(Performed 12/14/2022) * CBC W AUTO DIFFERENTIAL(Performed 12/14/2022) * GLUCOSE - POINT OF CARE(Performed 12/14/2022) * GLUCOSE - POINT OF CARE(Performed 12/14/2022) * GLUCOSE - POINT OF CARE(Performed 12/13/2022) * GLUCOSE - POINT OF CARE(Performed 12/13/2022) * GLUCOSE - POINT OF CARE(Performed 12/13/2022) * CBC W AUTO DIFFERENTIAL(Performed 12/13/2022) * GLUCOSE - POINT OF CARE(Performed 12/13/2022) * GLUCOSE - POINT OF CARE(Performed 12/13/2022) * PT-INR [facility](Performed 12/13/2022) * MAGNESIUM BLOOD(Performed 12/13/2022) * RENAL FUNCTION PANEL(Performed 12/13/2022) * GLUCOSE - POINT OF CARE(Performed 12/13/2022) * GLUCOSE - POINT OF CARE(Performed 12/12/2022) * GLUCOSE - POINT OF CARE(Performed 12/12/2022) * CBC W AUTO DIFFERENTIAL(Performed 12/12/2022) * GLUCOSE - POINT OF CARE(Performed 12/12/2022) * GLUCOSE - POINT OF CARE(Performed 12/12/2022) * GLUCOSE - POINT OF CARE(Performed 12/12/2022) * MAGNESIUM BLOOD(Performed 12/12/2022) * RENAL FUNCTION PANEL(Performed 12/12/2022) * GLUCOSE - POINT OF CARE(Performed 12/12/2022) * GLUCOSE - POINT OF CARE(Performed 12/11/2022) * GLUCOSE - POINT OF CARE(Performed 12/11/2022) * GLUCOSE - POINT OF CARE(Performed 12/11/2022) * GLUCOSE - POINT OF CARE(Performed 12/11/2022) * GLUCOSE - POINT OF CARE(Performed 12/11/2022) * MAGNESIUM BLOOD(Performed 12/11/2022) * RENAL FUNCTION PANEL(Performed 12/11/2022) * CBC W AUTO DIFFERENTIAL(Performed 12/11/2022) * GLUCOSE - POINT OF CARE(Performed 12/11/2022) * GLUCOSE - POINT OF CARE(Performed 12/10/2022) * GLUCOSE - POINT OF CARE(Performed 12/10/2022) * GASTROSTOMY TUBE, CHANGE / REPOSITION(Performed 12/10/2022) * GLUCOSE - POINT OF CARE(Performed 12/10/2022) * GLUCOSE - POINT OF CARE(Performed 12/10/2022) * MAGNESIUM BLOOD(Performed 12/10/2022) * RENAL FUNCTION PANEL(Performed 12/10/2022) * CBC W AUTO DIFFERENTIAL(Performed 12/10/2022) * GLUCOSE - POINT OF CARE(Performed 12/10/2022) * GLUCOSE - POINT OF CARE(Performed 12/09/2022) * GLUCOSE - POINT OF CARE(Performed 12/09/2022) * GLUCOSE - POINT OF CARE(Performed 12/09/2022) * PT-INR [facility](Performed 12/09/2022) Performed for Severe protein-calorie malnutrition (HCC), Protein-calorie malnutrition, unspecified severity (HCC), History of stroke * GLUCOSE - POINT OF CARE(Performed 12/09/2022) * GLUCOSE - POINT OF CARE(Performed 12/09/2022) * MAGNESIUM BLOOD(Performed 12/09/2022) * RENAL FUNCTION PANEL(Performed 12/09/2022) * CBC W AUTO DIFFERENTIAL(Performed 12/09/2022) * GLUCOSE - POINT OF CARE(Performed 12/08/2022) * GLUCOSE - POINT OF CARE(Performed 12/08/2022) * GLUCOSE - POINT OF CARE(Performed 12/08/2022) * GLUCOSE - POINT OF CARE(Performed 12/08/2022) * LACOSAMIDE(Performed 12/08/2022) Performed for 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, not intractable, without status epilepticus (HCC) * VALPROIC ACID LEVEL(Performed 12/08/2022) Performed for 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, not intractable, without status epilepticus (HCC) * LEVETIRACETAM LEVEL(Performed 12/08/2022) Performed for 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, not intractable, without status epilepticus (HCC) * MAGNESIUM BLOOD(Performed 12/08/2022) * RENAL FUNCTION PANEL(Performed 12/08/2022) * CBC W AUTO DIFFERENTIAL(Performed 12/08/2022) * LACTIC ACID BLOOD REFLEX TO REPEAT(Performed 12/08/2022) * GLUCOSE - POINT OF CARE(Performed 12/07/2022) * NM GASTRIC EMPTYING(Performed 12/07/2022) Performed for PEG (percutaneous endoscopic gastrostomy) status ([facility]) * MAGNESIUM BLOOD(Performed 12/07/2022) * RENAL FUNCTION PANEL(Performed 12/07/2022) * CBC W AUTO DIFFERENTIAL(Performed 12/07/2022) * MAGNESIUM BLOOD(Performed 12/06/2022) * RENAL FUNCTION PANEL(Performed 12/06/2022) * CBC W AUTO DIFFERENTIAL(Performed 12/06/2022) * MAGNESIUM BLOOD(Performed 12/05/2022) * RENAL FUNCTION PANEL(Performed 12/05/2022) * CBC W AUTO DIFFERENTIAL(Performed 12/05/2022) * MECHANICAL VENTILATION(Performed 12/04/2022) * MAGNESIUM BLOOD(Performed 12/04/2022) * RENAL FUNCTION PANEL(Performed 12/04/2022) * CBC W AUTO DIFFERENTIAL(Performed 12/04/2022) * GLUCOSE - POINT OF CARE(Performed 12/03/2022) * GLUCOSE - POINT OF CARE(Performed 12/03/2022) * GLUCOSE - POINT OF CARE(Performed 12/03/2022) * GLUCOSE - POINT OF CARE(Performed 12/03/2022) * MAGNESIUM BLOOD(Performed 12/03/2022) * RENAL FUNCTION PANEL(Performed 12/03/2022) * CBC W AUTO DIFFERENTIAL(Performed 12/03/2022) * GLUCOSE - POINT OF CARE(Performed 12/02/2022) * GLUCOSE - POINT OF CARE(Performed 12/02/2022) * GLUCOSE - POINT OF CARE(Performed 12/02/2022) * GLUCOSE - POINT OF CARE(Performed 12/02/2022) * GLUCOSE - POINT OF CARE(Performed 12/02/2022) * MAGNESIUM BLOOD(Performed 12/02/2022) * RENAL FUNCTION PANEL(Performed 12/02/2022) * CBC W AUTO DIFFERENTIAL(Performed 12/02/2022) * GLUCOSE - POINT OF CARE(Performed 12/02/2022) * GLUCOSE - POINT OF CARE(Performed 12/01/2022) * GLUCOSE - POINT OF CARE(Performed 12/01/2022) * GLUCOSE - POINT OF CARE(Performed 12/01/2022) * GLUCOSE - POINT OF CARE(Performed 12/01/2022) * GLUCOSE - POINT OF CARE(Performed 12/01/2022) * GLUCOSE - POINT OF CARE(Performed 12/01/2022) * MAGNESIUM BLOOD(Performed 12/01/2022) * RENAL FUNCTION PANEL(Performed 12/01/2022) * CBC W AUTO DIFFERENTIAL(Performed 12/01/2022) * GLUCOSE - POINT OF CARE(Performed 11/30/2022) * TRANSFUSE RED BLOOD CELL LEUKOREDUCED UNIT(S)(Performed 11/30/2022) * PREPARE RBC LEUKOREDUCED UNIT(Performed 11/30/2022) * GLUCOSE - POINT OF CARE(Performed 11/30/2022) * TYPE + SCREEN PANEL(Performed 11/30/2022) * GLUCOSE - POINT OF CARE(Performed 11/30/2022) * VANCOMYCIN LEVEL TROUGH(Performed 11/30/2022) * GLUCOSE - POINT OF CARE(Performed 11/30/2022) * GLUCOSE - POINT OF CARE(Performed 11/30/2022) * VANCOMYCIN LEVEL PEAK(Performed 11/30/2022) * MAGNESIUM BLOOD(Performed 11/30/2022) * RENAL FUNCTION PANEL(Performed 11/30/2022) * CBC W AUTO DIFFERENTIAL(Performed 11/30/2022) * GLUCOSE - POINT OF CARE(Performed 11/30/2022) * GLUCOSE - POINT OF CARE(Performed 11/29/2022) * GLUCOSE - POINT OF CARE(Performed 11/29/2022) * GLUCOSE - POINT OF CARE(Performed 11/29/2022) * VAS BILATERAL VENOUS DUPLEX LE(Performed 11/29/2022) Performed for Sinus tachycardia * EKG 12-LEAD(Performed 11/29/2022) Performed for V-tach (HCC) * ECHO COMPLETE(Performed 11/29/2022) Performed for Ventricular tachycardia (HCC) * GLUCOSE - POINT OF CARE(Performed 11/29/2022) * METANEPHRINES URINE FRACTIONATED(Performed 11/29/2022) * MAGNESIUM BLOOD(Performed 11/29/2022) * RENAL FUNCTION PANEL(Performed 11/29/2022) * CBC W AUTO DIFFERENTIAL(Performed 11/29/2022) * GLUCOSE - POINT OF CARE(Performed 11/28/2022) * CULTURE SPUTUM+GRAM STAIN(Performed 11/28/2022) * GLUCOSE - POINT OF CARE(Performed 11/28/2022) * GLUCOSE - POINT OF CARE(Performed 11/28/2022) * MAGNESIUM BLOOD(Performed 11/28/2022) * RENAL FUNCTION PANEL(Performed 11/28/2022) * CBC W AUTO DIFFERENTIAL(Performed 11/28/2022) * GLUCOSE - POINT OF CARE(Performed 11/27/2022) * TSH REFLEX FREE T4(Performed 11/27/2022) * CT ANGIO CHEST PULM EMBOLISM(Performed 11/27/2022) Performed for Sinus tachycardia * GLUCOSE - POINT OF CARE(Performed 11/27/2022) * EKG 12-LEAD(Performed 11/27/2022) Performed for Sinus tachycardia * GLUCOSE - POINT OF CARE(Performed 11/27/2022) * BLOOD GASES ART + COOX PANEL(Performed 11/27/2022) * MAGNESIUM BLOOD(Performed 11/27/2022) * RENAL FUNCTION PANEL(Performed 11/27/2022) * CBC W AUTO DIFFERENTIAL(Performed 11/27/2022) * GLUCOSE - POINT OF CARE(Performed 11/27/2022) * GLUCOSE - POINT OF CARE(Performed 11/27/2022) * BLOOD GASES ART + COOX PANEL(Performed 11/26/2022) * PROCALCITONIN LEVEL(Performed 11/26/2022) * CALCIUM IONIZED WHOLE BLOOD(Performed 11/26/2022) * XR CHEST 1VW PORTABLE(Performed 11/26/2022) Performed for Hypoxia * EKG 12-LEAD(Performed 11/26/2022) Performed for Ventricular tachycardia (HCC) * TROPONIN-I HIGH SENSITIVE(Performed 11/26/2022) * BLOOD GASES ART + COOX PANEL(Performed 11/26/2022) * PHOSPHORUS BLOOD(Performed 11/26/2022) * MAGNESIUM BLOOD(Performed 11/26/2022) * BASIC METABOLIC PANEL (CALCIUM TOTAL)(Performed 11/26/2022) * CBC W AUTO DIFFERENTIAL(Performed 11/26/2022) * CARDIAC EKG ORDER(Performed 11/26/2022) * EKG 12-LEAD(Performed 11/26/2022) Performed for Paroxysmal tachycardia, unspecified (HCC), Sinus tachycardia * GLUCOSE - POINT OF CARE(Performed 11/26/2022) * PATHOLOGY TISSUE(Performed 11/26/2022) Performed for Polyp of right nasal cavity * ENDOSCOPIC SINUS/NASAL SURGERY(Performed 11/26/2022) Performed for Polyp of right nasal cavity * GLUCOSE - POINT OF CARE(Performed 11/26/2022) * GLUCOSE - POINT OF CARE(Performed 11/26/2022) * MAGNESIUM BLOOD(Performed 11/26/2022) * RENAL FUNCTION PANEL(Performed 11/26/2022) * CBC W AUTO DIFFERENTIAL(Performed 11/26/2022) * CBC W/O DIFFERENTIAL(Performed 11/26/2022) * GLUCOSE - POINT OF CARE(Performed 11/26/2022) * GLUCOSE - POINT OF CARE(Performed 11/25/2022) * MRSA DNA PCR(Performed 11/25/2022) * CT SINUS WWO CONTRAST(Performed 11/25/2022) Performed for Hemoptysis * CT CHEST W CONTRAST(Performed 11/25/2022) Performed for Hemoptysis * MAGNESIUM BLOOD(Performed 11/25/2022) * COMPREHENSIVE METABOLIC PANEL(Performed 11/25/2022) * TYPE + SCREEN PANEL(Performed 11/25/2022) * URINALYSIS REFLEX MICROSCOPIC REFLEX CULTURE(Performed 11/25/2022) * XR CHEST 1VW PORTABLE(Performed 11/24/2022) Performed for Hemoptysis * CBC W AUTO DIFFERENTIAL(Performed 11/24/2022) * EKG 12-LEAD(Performed 11/24/2022) Performed for Hemoptysis * CARDIAC EKG ORDER(Performed 11/19/2022) * GLUCOSE - POINT OF CARE(Performed 11/09/2022) * GLUCOSE - POINT OF CARE(Performed 11/08/2022) * GLUCOSE - POINT OF CARE(Performed 11/08/2022) * GLUCOSE - POINT OF CARE(Performed 11/07/2022) * GLUCOSE - POINT OF CARE(Performed 11/07/2022) * GLUCOSE - POINT OF CARE(Performed 11/06/2022) * GLUCOSE - POINT OF CARE(Performed 11/06/2022) * GLUCOSE - POINT OF CARE(Performed 11/04/2022) * GLUCOSE - POINT OF CARE(Performed 11/04/2022) * CBC W AUTO DIFFERENTIAL(Performed 11/04/2022) * MAGNESIUM BLOOD(Performed 11/04/2022) * PHOSPHORUS BLOOD(Performed 11/04/2022) * COMPREHENSIVE METABOLIC PANEL(Performed 11/04/2022) * GLUCOSE - POINT OF CARE(Performed 11/03/2022) * GLUCOSE - POINT OF CARE(Performed 11/03/2022) * GLUCOSE - POINT OF CARE(Performed 11/03/2022) * GLUCOSE - POINT OF CARE(Performed 11/02/2022) * GLUCOSE - POINT OF CARE(Performed 11/02/2022) * GLUCOSE - POINT OF CARE(Performed 11/02/2022) * GLUCOSE - POINT OF CARE(Performed 11/01/2022) * GLUCOSE - POINT OF CARE(Performed 11/01/2022) * PHOSPHORUS BLOOD(Performed 11/01/2022) * MAGNESIUM BLOOD(Performed 11/01/2022) * CBC W AUTO DIFFERENTIAL(Performed 11/01/2022) * BASIC METABOLIC PANEL (CALCIUM TOTAL)(Performed 11/01/2022) * GLUCOSE - POINT OF CARE(Performed 11/01/2022) * GLUCOSE - POINT OF CARE(Performed 10/31/2022) * GLUCOSE - POINT OF CARE(Performed 10/31/2022) * GLUCOSE - POINT OF CARE(Performed 10/30/2022) * GLUCOSE - POINT OF CARE(Performed 10/30/2022) * VALPROIC ACID FREE+TOTAL PANEL(Performed 10/30/2022) * PHOSPHORUS BLOOD(Performed 10/30/2022) * MAGNESIUM BLOOD(Performed 10/30/2022) * CBC W AUTO DIFFERENTIAL(Performed 10/30/2022) * BASIC METABOLIC PANEL (CALCIUM TOTAL)(Performed 10/30/2022) * GLUCOSE - POINT OF CARE(Performed 10/30/2022) * GLUCOSE - POINT OF CARE(Performed 10/29/2022) * GLUCOSE - POINT OF CARE(Performed 10/29/2022) * GLUCOSE - POINT OF CARE(Performed 10/29/2022) * GLUCOSE - POINT OF CARE(Performed 10/28/2022) * PHOSPHORUS BLOOD(Performed 10/28/2022) * MAGNESIUM BLOOD(Performed 10/28/2022) * CBC W AUTO DIFFERENTIAL(Performed 10/28/2022) * BASIC METABOLIC PANEL (CALCIUM TOTAL)(Performed 10/28/2022) * GLUCOSE - POINT OF CARE(Performed 10/28/2022) * GLUCOSE - POINT OF CARE(Performed 10/28/2022) * GLUCOSE - POINT OF CARE(Performed 10/27/2022) * GLUCOSE - POINT OF CARE(Performed 10/27/2022) * GLUCOSE - POINT OF CARE(Performed 10/27/2022) * GLUCOSE - POINT OF CARE(Performed 10/26/2022) * GLUCOSE - POINT OF CARE(Performed 10/26/2022) * PHOSPHORUS BLOOD(Performed 10/26/2022) * MAGNESIUM BLOOD(Performed 10/26/2022) * CBC W AUTO DIFFERENTIAL(Performed 10/26/2022) * BASIC METABOLIC PANEL (CALCIUM TOTAL)(Performed 10/26/2022) * GLUCOSE - POINT OF CARE(Performed 10/26/2022) * GLUCOSE - POINT OF CARE(Performed 10/26/2022) * GLUCOSE - POINT OF CARE(Performed 10/25/2022) * GLUCOSE - POINT OF CARE(Performed 10/25/2022) * GLUCOSE - POINT OF CARE(Performed 10/25/2022) * GLUCOSE - POINT OF CARE(Performed 10/25/2022) * GLUCOSE - POINT OF CARE(Performed 10/24/2022) * GLUCOSE - POINT OF CARE(Performed 10/24/2022) * PHOSPHORUS BLOOD(Performed 10/24/2022) * MAGNESIUM BLOOD(Performed 10/24/2022) * CBC W AUTO DIFFERENTIAL(Performed 10/24/2022) * BASIC METABOLIC PANEL (CALCIUM TOTAL)(Performed 10/24/2022) * GLUCOSE - POINT OF CARE(Performed 10/22/2022) * GLUCOSE - POINT OF CARE(Performed 10/22/2022) * GLUCOSE - POINT OF CARE(Performed 10/22/2022) * GLUCOSE - POINT OF CARE(Performed 10/22/2022) * PHOSPHORUS BLOOD(Performed 10/22/2022) * MAGNESIUM BLOOD(Performed 10/22/2022) * CBC W AUTO DIFFERENTIAL(Performed 10/22/2022) * BASIC METABOLIC PANEL (CALCIUM TOTAL)(Performed 10/22/2022) * GLUCOSE - POINT OF CARE(Performed 10/22/2022) * SARS-COV-2 (COVID-19) RAPID(Performed 10/21/2022) * GLUCOSE - POINT OF CARE(Performed 10/21/2022) * GLUCOSE - POINT OF CARE(Performed 10/21/2022) * GLUCOSE - POINT OF CARE(Performed 10/20/2022) * GLUCOSE - POINT OF CARE(Performed 10/20/2022) * GLUCOSE - POINT OF CARE(Performed 10/20/2022) * DIFFERENTIAL MANUAL(Performed 10/20/2022) * PHOSPHORUS BLOOD(Performed 10/20/2022) * MAGNESIUM BLOOD(Performed 10/20/2022) * CBC W AUTO DIFFERENTIAL(Performed 10/20/2022) * BASIC METABOLIC PANEL (CALCIUM TOTAL)(Performed 10/20/2022) * GLUCOSE - POINT OF CARE(Performed 10/19/2022) * GLUCOSE - POINT OF CARE(Performed 10/19/2022) * GLUCOSE - POINT OF CARE(Performed 10/19/2022) * GLUCOSE - POINT OF CARE(Performed 10/19/2022) * GLUCOSE - POINT OF CARE(Performed 10/18/2022) * GLUCOSE - POINT OF CARE(Performed 10/18/2022) * GLUCOSE - POINT OF CARE(Performed 10/18/2022) * PHOSPHORUS BLOOD(Performed 10/18/2022) * MAGNESIUM BLOOD(Performed 10/18/2022) * CBC W AUTO DIFFERENTIAL(Performed 10/18/2022) * BASIC METABOLIC PANEL (CALCIUM TOTAL)(Performed 10/18/2022) * GLUCOSE - POINT OF CARE(Performed 10/18/2022) * GLUCOSE - POINT OF CARE(Performed 10/17/2022) * GLUCOSE - POINT OF CARE(Performed 10/17/2022) * GLUCOSE - POINT OF CARE(Performed 10/17/2022) * XR CHEST 1VW PORTABLE(Performed 10/16/2022) Performed for Aspiration into airway, sequela * GLUCOSE - POINT OF CARE(Performed 10/16/2022) * PHOSPHORUS BLOOD(Performed 10/16/2022) * MAGNESIUM BLOOD(Performed 10/16/2022) * CBC W AUTO DIFFERENTIAL(Performed 10/16/2022) * BASIC METABOLIC PANEL (CALCIUM TOTAL)(Performed 10/16/2022) * GLUCOSE - POINT OF CARE(Performed 10/16/2022) * GLUCOSE - POINT OF CARE(Performed 10/16/2022) * GLUCOSE - POINT OF CARE(Performed 10/15/2022) * GLUCOSE - POINT OF CARE(Performed 10/15/2022) * GLUCOSE - POINT OF CARE(Performed 10/14/2022) * GLUCOSE - POINT OF CARE(Performed 10/14/2022) * GLUCOSE - POINT OF CARE(Performed 10/14/2022) * PHOSPHORUS BLOOD(Performed 10/14/2022) * MAGNESIUM BLOOD(Performed 10/14/2022) * CBC W AUTO DIFFERENTIAL(Performed 10/14/2022) * BASIC METABOLIC PANEL (CALCIUM TOTAL)(Performed 10/14/2022) * GLUCOSE - POINT OF CARE(Performed 10/14/2022) * GLUCOSE - POINT OF CARE(Performed 10/13/2022) * GLUCOSE - POINT OF CARE(Performed 10/13/2022) * XR CHEST 1VW PORTABLE(Performed 10/13/2022) Performed for Fever, unspecified fever cause * GLUCOSE - POINT OF CARE(Performed 10/12/2022) * GLUCOSE - POINT OF CARE(Performed 10/12/2022) * PHOSPHORUS BLOOD(Performed 10/12/2022) * MAGNESIUM BLOOD(Performed 10/12/2022) * CBC W AUTO DIFFERENTIAL(Performed 10/12/2022) * BASIC METABOLIC PANEL (CALCIUM TOTAL)(Performed 10/12/2022) * GLUCOSE - POINT OF CARE(Performed 10/12/2022) * GLUCOSE - POINT OF CARE(Performed 10/12/2022) * GLUCOSE - POINT OF CARE(Performed 10/11/2022) * GLUCOSE - POINT OF CARE(Performed 10/11/2022) * GLUCOSE - POINT OF CARE(Performed 10/11/2022) * GLUCOSE - POINT OF CARE(Performed 10/11/2022) * GLUCOSE - POINT OF CARE(Performed 10/10/2022) * GLUCOSE - POINT OF CARE(Performed 10/10/2022) * GLUCOSE - POINT OF CARE(Performed 10/10/2022) * GLUCOSE - POINT OF CARE(Performed 10/10/2022) * GLUCOSE - POINT OF CARE(Performed 10/09/2022) * GLUCOSE - POINT OF CARE(Performed 10/09/2022) * GLUCOSE - POINT OF CARE(Performed 10/09/2022) * TROPONIN-I HIGH SENSITIVE(Performed 10/09/2022) * XR CHEST 1VW PORTABLE(Performed 10/09/2022) Performed for Aspiration into airway, initial encounter * LACTIC ACID BLOOD(Performed 10/09/2022) * COMPREHENSIVE METABOLIC PANEL(Performed 10/09/2022) Performed for Hypoxia * CBC W/O DIFFERENTIAL(Performed 10/09/2022) Performed for Hypoxia * BLOOD GASES ART + COOX PANEL(Performed 10/09/2022) * EKG 12-LEAD(Performed 10/09/2022) Performed for Chronic respiratory failure with hypoxia (HCC) * GLUCOSE - POINT OF CARE(Performed 10/09/2022) * GLUCOSE - POINT OF CARE(Performed 10/09/2022) * GLUCOSE - POINT OF CARE(Performed 10/08/2022) * GLUCOSE - POINT OF CARE(Performed 10/08/2022) * GLUCOSE - POINT OF CARE(Performed 10/08/2022) * PHOSPHORUS BLOOD(Performed 10/08/2022) * MAGNESIUM BLOOD(Performed 10/08/2022) * CBC W AUTO DIFFERENTIAL(Performed 10/08/2022) * BASIC METABOLIC PANEL (CALCIUM TOTAL)(Performed 10/08/2022) * GLUCOSE - POINT OF CARE(Performed 10/08/2022) * GLUCOSE - POINT OF CARE(Performed 10/08/2022) * GLUCOSE - POINT OF CARE(Performed 10/07/2022) * GLUCOSE - POINT OF CARE(Performed 10/07/2022) * GLUCOSE - POINT OF CARE(Performed 10/07/2022) * GLUCOSE - POINT OF CARE(Performed 10/07/2022) * GLUCOSE - POINT OF CARE(Performed 10/06/2022) * PHOSPHORUS BLOOD(Performed 10/06/2022) * MAGNESIUM BLOOD(Performed 10/06/2022) * CBC W AUTO DIFFERENTIAL(Performed 10/06/2022) * BASIC METABOLIC PANEL (CALCIUM TOTAL)(Performed 10/06/2022) * GLUCOSE - POINT OF CARE(Performed 10/06/2022) * GLUCOSE - POINT OF CARE(Performed 10/06/2022) * GLUCOSE - POINT OF CARE(Performed 10/05/2022) * GLUCOSE - POINT OF CARE(Performed 10/05/2022) * GLUCOSE - POINT OF CARE(Performed 10/05/2022) * GLUCOSE - POINT OF CARE(Performed 10/05/2022) * PHOSPHORUS BLOOD(Performed 10/04/2022) * MAGNESIUM BLOOD(Performed 10/04/2022) * CBC W AUTO DIFFERENTIAL(Performed 10/04/2022) * BASIC METABOLIC PANEL (CALCIUM TOTAL)(Performed 10/04/2022) * GLUCOSE - POINT OF CARE(Performed 10/04/2022) * GLUCOSE - POINT OF CARE(Performed 10/04/2022) * GLUCOSE - POINT OF CARE(Performed 10/03/2022) * GLUCOSE - POINT OF CARE(Performed 10/03/2022) * GLUCOSE - POINT OF CARE(Performed 10/03/2022) * GLUCOSE - POINT OF CARE(Performed 10/03/2022) * GLUCOSE - POINT OF CARE(Performed 10/03/2022) * GLUCOSE - POINT OF CARE(Performed 10/03/2022) * GLUCOSE - POINT OF CARE(Performed 10/02/2022) * GLUCOSE - POINT OF CARE(Performed 10/02/2022) * GLUCOSE - POINT OF CARE(Performed 10/02/2022) * PHOSPHORUS BLOOD(Performed 10/02/2022) * MAGNESIUM BLOOD(Performed 10/02/2022) * CBC W AUTO DIFFERENTIAL(Performed 10/02/2022) * BASIC METABOLIC PANEL (CALCIUM TOTAL)(Performed 10/02/2022) * GLUCOSE - POINT OF CARE(Performed 10/02/2022) * GLUCOSE - POINT OF CARE(Performed 10/02/2022) * GLUCOSE - POINT OF CARE(Performed 10/01/2022) * GLUCOSE - POINT OF CARE(Performed 10/01/2022) * GLUCOSE - POINT OF CARE(Performed 10/01/2022) * GLUCOSE - POINT OF CARE(Performed 10/01/2022) * GLUCOSE - POINT OF CARE(Performed 09/30/2022) * GLUCOSE - POINT OF CARE(Performed 09/30/2022) * PHOSPHORUS BLOOD(Performed 09/30/2022) * MAGNESIUM BLOOD(Performed 09/30/2022) * CBC W AUTO DIFFERENTIAL(Performed 09/30/2022) * BASIC METABOLIC PANEL (CALCIUM TOTAL)(Performed 09/30/2022) * GLUCOSE - POINT OF CARE(Performed 09/30/2022) * GLUCOSE - POINT OF CARE(Performed 09/30/2022) * GLUCOSE - POINT OF CARE(Performed 09/29/2022) * GLUCOSE - POINT OF CARE(Performed 09/29/2022) * GLUCOSE - POINT OF CARE(Performed 09/29/2022) * GLUCOSE - POINT OF CARE(Performed 09/29/2022) * GLUCOSE - POINT OF CARE(Performed 09/29/2022) * GLUCOSE - POINT OF CARE(Performed 09/28/2022) * GLUCOSE - POINT OF CARE(Performed 09/28/2022) * GLUCOSE - POINT OF CARE(Performed 09/28/2022) * CBC W AUTO DIFFERENTIAL(Performed 09/28/2022) * PHOSPHORUS BLOOD(Performed 09/28/2022) * MAGNESIUM BLOOD(Performed 09/28/2022) * BASIC METABOLIC PANEL (CALCIUM TOTAL)(Performed 09/28/2022) * GLUCOSE - POINT OF CARE(Performed 09/28/2022) * GLUCOSE - POINT OF CARE(Performed 09/28/2022) * GLUCOSE - POINT OF CARE(Performed 09/27/2022) * GLUCOSE - POINT OF CARE(Performed 09/27/2022) * GLUCOSE - POINT OF CARE(Performed 09/27/2022) * GLUCOSE - POINT OF CARE(Performed 09/26/2022) * GLUCOSE - POINT OF CARE(Performed 09/26/2022) * GLUCOSE - POINT OF CARE(Performed 09/26/2022) * PHOSPHORUS BLOOD(Performed 09/26/2022) * MAGNESIUM BLOOD(Performed 09/26/2022) * CBC W AUTO DIFFERENTIAL(Performed 09/26/2022) * BASIC METABOLIC PANEL (CALCIUM TOTAL)(Performed 09/26/2022) * GLUCOSE - POINT OF CARE(Performed 09/25/2022) * GLUCOSE - POINT OF CARE(Performed 09/25/2022) * GLUCOSE - POINT OF CARE(Performed 09/25/2022) * GLUCOSE - POINT OF CARE(Performed 09/25/2022) * GLUCOSE - POINT OF CARE(Performed 09/25/2022) * GLUCOSE - POINT OF CARE(Performed 09/24/2022) * GLUCOSE - POINT OF CARE(Performed 09/24/2022) * XR CHEST 1VW PORTABLE(Performed 09/24/2022) Performed for Tachycardia * GLUCOSE - POINT OF CARE(Performed 09/24/2022) * GLUCOSE - POINT OF CARE(Performed 09/24/2022) * PHOSPHORUS BLOOD(Performed 09/24/2022) * MAGNESIUM BLOOD(Performed 09/24/2022) * CBC W AUTO DIFFERENTIAL(Performed 09/24/2022) * BASIC METABOLIC PANEL (CALCIUM TOTAL)(Performed 09/24/2022) * GLUCOSE - POINT OF CARE(Performed 09/24/2022) * GLUCOSE - POINT OF CARE(Performed 09/23/2022) * GLUCOSE - POINT OF CARE(Performed 09/23/2022) * GLUCOSE - POINT OF CARE(Performed 09/23/2022) * GLUCOSE - POINT OF CARE(Performed 09/23/2022) * GLUCOSE - POINT OF CARE(Performed 09/22/2022) * GLUCOSE - POINT OF CARE(Performed 09/22/2022) * GLUCOSE - POINT OF CARE(Performed 09/22/2022) * GLUCOSE - POINT OF CARE(Performed 09/22/2022) * GLUCOSE - POINT OF CARE(Performed 09/22/2022) * GLUCOSE - POINT OF CARE(Performed 09/21/2022) * GLUCOSE - POINT OF CARE(Performed 09/21/2022) * GLUCOSE - POINT OF CARE(Performed 09/21/2022) * GLUCOSE - POINT OF CARE(Performed 09/21/2022) * CBC W AUTO DIFFERENTIAL(Performed 09/21/2022) * BASIC METABOLIC PANEL (CALCIUM TOTAL)(Performed 09/21/2022) * PHOSPHORUS BLOOD(Performed 09/21/2022) * MAGNESIUM BLOOD(Performed 09/21/2022) * GLUCOSE - POINT OF CARE(Performed 09/21/2022) * GLUCOSE - POINT OF CARE(Performed 09/21/2022) * GLUCOSE - POINT OF CARE(Performed 09/20/2022) * GLUCOSE - POINT OF CARE(Performed 09/20/2022) * CBC W AUTO DIFFERENTIAL(Performed 09/20/2022) * BASIC METABOLIC PANEL (CALCIUM TOTAL)(Performed 09/20/2022) * PHOSPHORUS BLOOD(Performed 09/20/2022) * MAGNESIUM BLOOD(Performed 09/20/2022) * GLUCOSE - POINT OF CARE(Performed 09/19/2022) * CBC W AUTO DIFFERENTIAL(Performed 09/19/2022) * BASIC METABOLIC PANEL (CALCIUM TOTAL)(Performed 09/19/2022) * PHOSPHORUS BLOOD(Performed 09/19/2022) * MAGNESIUM BLOOD(Performed 09/19/2022) * CULTURE BLOOD(Performed 09/19/2022) * GLUCOSE - POINT OF CARE(Performed 09/19/2022) * GLUCOSE - POINT OF CARE(Performed 09/19/2022) * XR CHEST 1VW PORTABLE(Performed 09/19/2022) Performed for SOB (shortness of breath), Pulmonary infiltrate, Acute on chronic respiratory failurewith hypoxia (HCC) * GLUCOSE - POINT OF CARE(Performed 09/19/2022) * GLUCOSE - POINT OF CARE(Performed 09/18/2022) * CBC W AUTO DIFFERENTIAL(Performed 09/18/2022) * TROPONIN-I HIGH SENSITIVE(Performed 09/18/2022) * CULTURE BLOOD(Performed 09/18/2022) * CULTURE SPUTUM+GRAM STAIN(Performed 09/18/2022) * EKG 12-LEAD(Performed 09/18/2022) Performed for Paroxysmal atrial tachycardia (CMS/HCC) * XR CHEST 1VW PORTABLE(Performed 09/18/2022) Performed for Fever in other diseases * GLUCOSE - POINT OF CARE(Performed 09/18/2022) * GLUCOSE - POINT OF CARE(Performed 09/18/2022) * PHOSPHORUS BLOOD(Performed 09/18/2022) * MAGNESIUM BLOOD(Performed 09/18/2022) * BASIC METABOLIC PANEL (CALCIUM TOTAL)(Performed 09/18/2022) * GLUCOSE - POINT OF CARE(Performed 09/17/2022) * GLUCOSE - POINT OF CARE(Performed 09/17/2022) * GLUCOSE - POINT OF CARE(Performed 09/17/2022) * PROCALCITONIN LEVEL(Performed 09/17/2022) * PHOSPHORUS BLOOD(Performed 09/17/2022) * MAGNESIUM BLOOD(Performed 09/17/2022) * BASIC METABOLIC PANEL (CALCIUM TOTAL)(Performed 09/17/2022) * CBC W AUTO DIFFERENTIAL(Performed 09/17/2022) * GLUCOSE - POINT OF CARE(Performed 09/17/2022) * GLUCOSE - POINT OF CARE(Performed 09/16/2022) * GLUCOSE - POINT OF CARE(Performed 09/16/2022) * GLUCOSE - POINT OF CARE(Performed 09/16/2022) * PHOSPHORUS BLOOD(Performed 09/16/2022) * MAGNESIUM BLOOD(Performed 09/16/2022) * BASIC METABOLIC PANEL (CALCIUM TOTAL)(Performed 09/16/2022) * CBC W AUTO DIFFERENTIAL(Performed 09/16/2022) * GLUCOSE - POINT OF CARE(Performed 09/16/2022) * GLUCOSE - POINT OF CARE(Performed 09/15/2022) * GLUCOSE - POINT OF CARE(Performed 09/15/2022) * PHOSPHORUS BLOOD(Performed 09/15/2022) * MAGNESIUM BLOOD(Performed 09/15/2022) * BASIC METABOLIC PANEL (CALCIUM TOTAL)(Performed 09/15/2022) * CBC W AUTO DIFFERENTIAL(Performed 09/15/2022) * GLUCOSE - POINT OF CARE(Performed 09/15/2022) * BLOOD GASES ART + COOX PANEL(Performed 09/14/2022) * PHOSPHORUS BLOOD(Performed 09/14/2022) * MAGNESIUM BLOOD(Performed 09/14/2022) * BASIC METABOLIC PANEL (CALCIUM TOTAL)(Performed 09/14/2022) * CBC W AUTO DIFFERENTIAL(Performed 09/14/2022) * GLUCOSE - POINT OF CARE(Performed 09/13/2022) * GLUCOSE - POINT OF CARE(Performed 09/13/2022) * GLUCOSE - POINT OF CARE(Performed 09/13/2022) * GLUCOSE - POINT OF CARE(Performed 09/13/2022) * PHOSPHORUS BLOOD(Performed 09/13/2022) * MAGNESIUM BLOOD(Performed 09/13/2022) * BASIC METABOLIC PANEL (CALCIUM TOTAL)(Performed 09/13/2022) * CBC W AUTO DIFFERENTIAL(Performed 09/13/2022) * GLUCOSE - POINT OF CARE(Performed 09/12/2022) * GLUCOSE - POINT OF CARE(Performed 09/12/2022) * XR CHEST 1VW PORTABLE(Performed 09/12/2022) Performed for Pulmonary infiltrate * GLUCOSE - POINT OF CARE(Performed 09/12/2022) * PHOSPHORUS BLOOD(Performed 09/12/2022) * MAGNESIUM BLOOD(Performed 09/12/2022) * BASIC METABOLIC PANEL (CALCIUM TOTAL)(Performed 09/12/2022) * CBC W AUTO DIFFERENTIAL(Performed 09/12/2022) * GLUCOSE - POINT OF CARE(Performed 09/11/2022) * EKG 12-LEAD(Performed 09/11/2022) Performed for Tachycardia * PHOSPHORUS BLOOD(Performed 09/11/2022) * MAGNESIUM BLOOD(Performed 09/11/2022) * BASIC METABOLIC PANEL (CALCIUM TOTAL)(Performed 09/11/2022) * CBC W AUTO DIFFERENTIAL(Performed 09/11/2022) * GLUCOSE - POINT OF CARE(Performed 09/10/2022) * GLUCOSE - POINT OF CARE(Performed 09/10/2022) * VANCOMYCIN LEVEL TROUGH(Performed 09/10/2022) * GLUCOSE - POINT OF CARE(Performed 09/10/2022) * PHOSPHORUS BLOOD(Performed 09/10/2022) * MAGNESIUM BLOOD(Performed 09/10/2022) * BASIC METABOLIC PANEL (CALCIUM TOTAL)(Performed 09/10/2022) * CBC W AUTO DIFFERENTIAL(Performed 09/10/2022) * XR CHEST 1VW PORTABLE(Performed 09/09/2022) Performed for Acute on chronic respiratory failure with hypoxia (HCC) * PHOSPHORUS BLOOD(Performed 09/09/2022) * MAGNESIUM BLOOD(Performed 09/09/2022) * BASIC METABOLIC PANEL (CALCIUM TOTAL)(Performed 09/09/2022) * CBC W AUTO DIFFERENTIAL(Performed 09/09/2022) * CULTURE SPUTUM+GRAM STAIN(Performed 09/08/2022) * PHOSPHORUS BLOOD(Performed 09/08/2022) * MAGNESIUM BLOOD(Performed 09/08/2022) * BASIC METABOLIC PANEL (CALCIUM TOTAL)(Performed 09/08/2022) * CBC W AUTO DIFFERENTIAL(Performed 09/08/2022) * XR CHEST 1VW PORTABLE(Performed 09/08/2022) Performed for Aspiration pneumonitis (HCC) * CT ANGIO CHEST PULM EMBOLISM(Performed 09/07/2022) Performed for Acute on chronic respiratory failure with hypoxia (HCC) * EKG 12-LEAD(Performed 09/07/2022) Performed for Hyperkalemia * BLOOD GASES ART + COOX PANEL(Performed 09/07/2022) * PHOSPHORUS BLOOD(Performed 09/07/2022) * MAGNESIUM BLOOD(Performed 09/07/2022) * BASIC METABOLIC PANEL (CALCIUM TOTAL)(Performed 09/07/2022) * CBC W AUTO DIFFERENTIAL(Performed 09/07/2022) * EKG 12-LEAD(Performed 09/06/2022) Performed for Acute on chronic respiratory failure with hypoxia (HCC) * XR CHEST 1VW PORTABLE(Performed 09/06/2022) Performed for Acute on chronic respiratory failure with hypoxia (HCC) * PHOSPHORUS BLOOD(Performed 09/06/2022) * MAGNESIUM BLOOD(Performed 09/06/2022) * BASIC METABOLIC PANEL (CALCIUM TOTAL)(Performed 09/06/2022) * CBC W AUTO DIFFERENTIAL(Performed 09/06/2022) * PHOSPHORUS BLOOD(Performed 09/05/2022) * MAGNESIUM BLOOD(Performed 09/05/2022) * BASIC METABOLIC PANEL (CALCIUM TOTAL)(Performed 09/05/2022) * CBC W AUTO DIFFERENTIAL(Performed 09/05/2022) * XR CHEST 1VW PORTABLE(Performed 09/04/2022) Performed for SOB (shortness of breath) * PHOSPHORUS BLOOD(Performed 09/04/2022) * MAGNESIUM BLOOD(Performed 09/04/2022) * BASIC METABOLIC PANEL (CALCIUM TOTAL)(Performed 09/04/2022) * CBC W AUTO DIFFERENTIAL(Performed 09/04/2022) * PHOSPHORUS BLOOD(Performed 09/03/2022) * MAGNESIUM BLOOD(Performed 09/03/2022) * BASIC METABOLIC PANEL (CALCIUM TOTAL)(Performed 09/03/2022) * CBC W AUTO DIFFERENTIAL(Performed 09/03/2022) * VANCOMYCIN LEVEL TROUGH(Performed 09/02/2022) * PHOSPHORUS BLOOD(Performed 09/02/2022) * MAGNESIUM BLOOD(Performed 09/02/2022) * BASIC METABOLIC PANEL (CALCIUM TOTAL)(Performed 09/02/2022) * CBC W AUTO DIFFERENTIAL(Performed 09/02/2022) * GLUCOSE - POINT OF CARE(Performed 09/01/2022) * GLUCOSE - POINT OF CARE(Performed 09/01/2022) * GLUCOSE - POINT OF CARE(Performed 09/01/2022) * GLUCOSE - POINT OF CARE(Performed 09/01/2022) * HEPATITIS C AB SCREEN RFLX NAAT QUANT(Performed 09/01/2022) * HIV-1 HIV-2 ANTIBODY + HIV P24 AG PANEL(Performed 09/01/2022) * PHOSPHORUS BLOOD(Performed 09/01/2022) * MAGNESIUM BLOOD(Performed 09/01/2022) * BASIC METABOLIC PANEL (CALCIUM TOTAL)(Performed 09/01/2022) * CBC W AUTO DIFFERENTIAL(Performed 09/01/2022) * GLUCOSE - POINT OF CARE(Performed 08/31/2022) * GLUCOSE - POINT OF CARE(Performed 08/31/2022) * CARDIAC EKG ORDER(Performed 08/31/2022) * GLUCOSE - POINT OF CARE(Performed 08/31/2022) * VANCOMYCIN LEVEL TROUGH(Performed 08/31/2022) * PT EVAL AND TREAT(Performed 08/31/2022) * OT EVAL AND TREAT(Performed 08/31/2022) * GLUCOSE - POINT OF CARE(Performed 08/31/2022) * GLUCOSE - POINT OF CARE(Performed 08/31/2022) * PHOSPHORUS BLOOD(Performed 08/31/2022) * MAGNESIUM BLOOD(Performed 08/31/2022) * BASIC METABOLIC PANEL (CALCIUM TOTAL)(Performed 08/31/2022) * CBC W AUTO DIFFERENTIAL(Performed 08/31/2022) * GLUCOSE - POINT OF CARE(Performed 08/31/2022) * GLUCOSE - POINT OF CARE(Performed 08/30/2022) * GLUCOSE - POINT OF CARE(Performed 08/30/2022) * ECHO COMPLETE(Performed 08/30/2022) Performed for Bacteremia * GLUCOSE - POINT OF CARE(Performed 08/30/2022) * CULTURE BLOOD(Performed 08/30/2022) * VALPROIC ACID LEVEL(Performed 08/30/2022) * CULTURE BLOOD(Performed 08/30/2022) * GLUCOSE - POINT OF CARE(Performed 08/30/2022) * GLUCOSE - POINT OF CARE(Performed 08/30/2022) * BASIC METABOLIC PANEL (CALCIUM TOTAL)(Performed 08/30/2022) * CBC W AUTO DIFFERENTIAL(Performed 08/30/2022) * GLUCOSE - POINT OF CARE(Performed 08/29/2022) * GLUCOSE - POINT OF CARE(Performed 08/29/2022) * GLUCOSE - POINT OF CARE(Performed 08/29/2022) * GLUCOSE - POINT OF CARE(Performed 08/29/2022) * GLUCOSE - POINT OF CARE(Performed 08/29/2022) * HEMOGLOBIN A1C(Performed 08/29/2022) * CBC W AUTO DIFFERENTIAL(Performed 08/29/2022) * CULTURE URINE(Performed 08/29/2022) * CULTURE SPUTUM+GRAM STAIN(Performed 08/29/2022) * PT-INR SLH(Performed 08/28/2022) * PHOSPHORUS BLOOD(Performed 08/28/2022) * MAGNESIUM BLOOD(Performed 08/28/2022) * LACTIC ACID BLOOD(Performed 08/28/2022) * COMPREHENSIVE METABOLIC PANEL(Performed 08/28/2022) * CALCIUM IONIZED WHOLE BLOOD(Performed 08/28/2022) * XR CHEST 1VW PORTABLE(Performed 08/28/2022) Performed for Pulmonary infiltrate, Acute on chronic respiratory failure with hypoxia (HCC) * XR ABDOMEN KUB PORTABLE(Performed 08/28/2022) Performed for History of stroke, Protein-calorie malnutrition, unspecified severity (HCC) * BLOOD GASES ART + COOX PANEL(Performed 08/28/2022) * URINALYSIS REFLEX TO MICROSCOPIC NO CULTURE(Performed 08/28/2022) * XR CHEST 1VW PORTABLE(Performed 08/28/2022) Performed for SOB (shortness of breath) * TROPONIN-I HIGH SENSITIVE REFLEX 1HOUR(Performed 08/28/2022) * MRSA DNA PCR(Performed 08/28/2022) * PROCALCITONIN LEVEL(Performed 08/28/2022) * TROPONIN-I HIGH SENSITIVE BASELINE + 1HR(Performed 08/28/2022) * LACTIC ACID BLOOD REFLEX TO REPEAT(Performed 08/28/2022) * COMPREHENSIVE METABOLIC PANEL(Performed 08/28/2022) * CBC W AUTO DIFFERENTIAL(Performed 08/28/2022) * BCID PANEL(Performed 08/28/2022) * CULTURE BLOOD(Performed 08/28/2022) * CULTURE BLOOD(Performed 08/28/2022) * SARS-COV-2 (COVID-19)+INFLU A+B PCR RAPID(Performed 08/28/2022) * EKG 12-LEAD(Performed 08/28/2022) Performed for SOB (shortness of breath) * CT CHEST WO CONTRAST(Performed 08/16/2022) Performed for Opacity of lung on imaging study * BASIC METABOLIC PANEL (CALCIUM TOTAL)(Performed 07/21/2022) * PHOSPHORUS BLOOD(Performed 07/21/2022) * MAGNESIUM BLOOD(Performed 07/21/2022) * CBC W AUTO DIFFERENTIAL(Performed 07/21/2022) * BASIC METABOLIC PANEL (CALCIUM TOTAL)(Performed 07/20/2022) * PHOSPHORUS BLOOD(Performed 07/20/2022) * MAGNESIUM BLOOD(Performed 07/20/2022) * CBC W AUTO DIFFERENTIAL(Performed 07/20/2022) * BASIC METABOLIC PANEL (CALCIUM TOTAL)(Performed 07/19/2022) * PHOSPHORUS BLOOD(Performed 07/19/2022) * MAGNESIUM BLOOD(Performed 07/19/2022) * CBC W AUTO DIFFERENTIAL(Performed 07/19/2022) * BASIC METABOLIC PANEL (CALCIUM TOTAL)(Performed 07/18/2022) * PHOSPHORUS BLOOD(Performed 07/18/2022) * MAGNESIUM BLOOD(Performed 07/18/2022) * CBC W AUTO DIFFERENTIAL(Performed 07/18/2022) * BASIC METABOLIC PANEL (CALCIUM TOTAL)(Performed 07/17/2022) * PHOSPHORUS BLOOD(Performed 07/17/2022) * MAGNESIUM BLOOD(Performed 07/17/2022) * CBC W AUTO DIFFERENTIAL(Performed 07/17/2022) * BASIC METABOLIC PANEL (CALCIUM TOTAL)(Performed 07/16/2022) * PHOSPHORUS BLOOD(Performed 07/16/2022) * MAGNESIUM BLOOD(Performed 07/16/2022) * CBC W AUTO DIFFERENTIAL(Performed 07/16/2022) * XR CHEST 1VW PORTABLE(Performed 07/16/2022) Performed for Aspiration into airway, subsequent encounter * ARTERIAL LINE NOTE(Performed 07/15/2022) * PATHOLOGY TISSUE(Performed 07/15/2022) Performed for Dysphagia, oropharyngeal phase * DIVERTICULECTOMY ESOPHAGEAL/ZENKERS(Performed 07/15/2022) Performed for Dysphagia, oropharyngeal phase * TYPE + SCREEN PANEL(Performed 07/15/2022) * BASIC METABOLIC PANEL (CALCIUM TOTAL)(Performed 07/15/2022) * PHOSPHORUS BLOOD(Performed 07/15/2022) * MAGNESIUM BLOOD(Performed 07/15/2022) * CBC W AUTO DIFFERENTIAL(Performed 07/15/2022) * OT EVAL AND TREAT(Performed 07/14/2022) * PT EVAL AND TREAT(Performed 07/14/2022) * BASIC METABOLIC PANEL (CALCIUM TOTAL)(Performed 07/14/2022) * PHOSPHORUS BLOOD(Performed 07/14/2022) * MAGNESIUM BLOOD(Performed 07/14/2022) * CBC W AUTO DIFFERENTIAL(Performed 07/14/2022) * BASIC METABOLIC PANEL (CALCIUM TOTAL)(Performed 07/13/2022) * PHOSPHORUS BLOOD(Performed 07/13/2022) * MAGNESIUM BLOOD(Performed 07/13/2022) * CBC W AUTO DIFFERENTIAL(Performed 07/13/2022) * BASIC METABOLIC PANEL (CALCIUM TOTAL)(Performed 07/12/2022) * PHOSPHORUS BLOOD(Performed 07/12/2022) * MAGNESIUM BLOOD(Performed 07/12/2022) * CBC W AUTO DIFFERENTIAL(Performed 07/12/2022) * CK BLOOD(Performed 07/11/2022) * BASIC METABOLIC PANEL (CALCIUM TOTAL)(Performed 07/11/2022) * PHOSPHORUS BLOOD(Performed 07/11/2022) * MAGNESIUM BLOOD(Performed 07/11/2022) * CBC W AUTO DIFFERENTIAL(Performed 07/11/2022) * BASIC METABOLIC PANEL (CALCIUM TOTAL)(Performed 07/10/2022) * PHOSPHORUS BLOOD(Performed 07/10/2022) * MAGNESIUM BLOOD(Performed 07/10/2022) * CBC W AUTO DIFFERENTIAL(Performed 07/10/2022) * VALPROIC ACID LEVEL(Performed 07/09/2022) * BASIC METABOLIC PANEL (CALCIUM TOTAL)(Performed 07/09/2022) * PHOSPHORUS BLOOD(Performed 07/09/2022) * MAGNESIUM BLOOD(Performed 07/09/2022) * CBC W AUTO DIFFERENTIAL(Performed 07/09/2022) * BASIC METABOLIC PANEL (CALCIUM TOTAL)(Performed 07/08/2022) * BASIC METABOLIC PANEL (CALCIUM TOTAL)(Performed 07/08/2022) * BASIC METABOLIC PANEL (CALCIUM TOTAL)(Performed 07/08/2022) * PHOSPHORUS BLOOD(Performed 07/08/2022) * MAGNESIUM BLOOD(Performed 07/08/2022) * CBC W AUTO DIFFERENTIAL(Performed 07/08/2022) * BASIC METABOLIC PANEL (CALCIUM TOTAL)(Performed 07/07/2022) * BASIC METABOLIC PANEL (CALCIUM TOTAL)(Performed 07/07/2022) * CARDIAC EKG ORDER(Performed 07/07/2022) * XR CHEST 1VW PORTABLE(Performed 07/07/2022) Performed for Seizures (HCC), Aspiration into airway, subsequent encounter * VALPROIC ACID LEVEL(Performed 07/07/2022) * TRIGLYCERIDES BLOOD(Performed 07/07/2022) * BASIC METABOLIC PANEL (CALCIUM TOTAL)(Performed 07/07/2022) * PHOSPHORUS BLOOD(Performed 07/07/2022) * MAGNESIUM BLOOD(Performed 07/07/2022) * CBC W AUTO DIFFERENTIAL(Performed 07/07/2022) * BASIC METABOLIC PANEL (CALCIUM TOTAL)(Performed 07/06/2022) * BASIC METABOLIC PANEL (CALCIUM TOTAL)(Performed 07/06/2022) * EEG VIDEO MONITORING(Performed 07/06/2022) * BLOOD GASES ART + COOX PANEL(Performed 07/06/2022) * BASIC METABOLIC PANEL (CALCIUM TOTAL)(Performed 07/06/2022) * PHOSPHORUS BLOOD(Performed 07/06/2022) * MAGNESIUM BLOOD(Performed 07/06/2022) * CBC W AUTO DIFFERENTIAL(Performed 07/06/2022) * BLOOD GASES ART + COOX PANEL(Performed 07/05/2022) * CULTURE BRONCHIAL WASHING+GRAM STAIN(Performed 07/05/2022) * CLOBAZAM QUANT BLOOD(Performed 07/05/2022) * VALPROIC ACID FREE+TOTAL PANEL(Performed 07/05/2022) * XR CHEST 1VW PORTABLE(Performed 07/05/2022) Performed for Pulmonary infiltrate * BASIC METABOLIC PANEL (CALCIUM TOTAL)(Performed 07/05/2022) * XR CHEST 1VW PORTABLE(Performed 07/05/2022) Performed for Atelectasis, right * XR CHEST 1VW PORTABLE(Performed 07/05/2022) Performed for Acute respiratory failure with hypoxia (HCC) * PHOSPHORUS BLOOD(Performed 07/05/2022) * MAGNESIUM BLOOD(Performed 07/05/2022) * CBC W AUTO DIFFERENTIAL(Performed 07/05/2022) * BASIC METABOLIC PANEL (CALCIUM TOTAL)(Performed 07/05/2022) * XR CHEST 1VW PORTABLE(Performed 07/04/2022) Performed for Aspiration into airway, sequela * XR CHEST 1VW PORTABLE(Performed 07/04/2022) Performed for Aspiration pneumonitis (HCC) * PHOSPHORUS BLOOD(Performed 07/04/2022) * MAGNESIUM BLOOD(Performed 07/04/2022) * TSH REFLEX FREE T4(Performed 07/04/2022) * VANCOMYCIN LEVEL RANDOM(Performed 07/04/2022) * CBC W AUTO DIFFERENTIAL(Performed 07/04/2022) * BASIC METABOLIC PANEL (CALCIUM TOTAL)(Performed 07/04/2022) * URINALYSIS REFLEX TO MICROSCOPIC NO CULTURE(Performed 07/04/2022) * CULTURE URINE(Performed 07/04/2022) * BLOOD GASES ART + COOX PANEL(Performed 07/03/2022) * XR CHEST 1VW PORTABLE(Performed 07/03/2022) Performed for Pulmonary infiltrate, Acute on chronic respiratory failure with hypoxia (HCC) * XR CHEST 1VW PORTABLE(Performed 07/03/2022) Performed for Aspiration into airway, sequela * VANCOMYCIN LEVEL RANDOM(Performed 07/03/2022) * CBC W AUTO DIFFERENTIAL(Performed 07/03/2022) * BASIC METABOLIC PANEL (CALCIUM TOTAL)(Performed 07/03/2022) * CREATININE URINE RANDOM(Performed 07/02/2022) * SODIUM URINE RANDOM(Performed 07/02/2022) * URINALYSIS W/MICROSCOPIC NO CULTURE(Performed 07/02/2022) * XR CHEST 1VW PORTABLE(Performed 07/02/2022) Performed for Dysphagia, oropharyngeal phase * VANCOMYCIN LEVEL RANDOM(Performed 07/02/2022) * CBC W AUTO DIFFERENTIAL(Performed 07/02/2022) * BASIC METABOLIC PANEL (CALCIUM TOTAL)(Performed 07/02/2022) * VANCOMYCIN LEVEL TROUGH(Performed 07/01/2022) * CBC W AUTO DIFFERENTIAL(Performed 07/01/2022) * CK BLOOD(Performed 07/01/2022) * BASIC METABOLIC PANEL (CALCIUM TOTAL)(Performed 07/01/2022) * US PELVIS LIMITED(Performed 07/01/2022) Performed for History of CVA (cerebrovascular accident) * GLUCOSE - POINT OF CARE(Performed 07/01/2022) * CULTURE BLOOD FUNGUS(Performed 06/30/2022) * RESPIRATORY PANEL WITH SARS-COV-2 BY PCR (STL)(Performed 06/30/2022) * CULTURE BLOOD(Performed 06/30/2022) * CULTURE BLOOD(Performed 06/30/2022) * VAS RIGHT VENOUS DUPLEX UE(Performed 06/30/2022) Performed for Aspiration pneumonitis (HCC), Aspiration into lower respiratory tract, initial encounter * CARDIAC EKG ORDER(Performed 06/30/2022) * HEPATIC FUNCTION PANEL(Performed 06/30/2022) * CBC W/O DIFFERENTIAL(Performed 06/30/2022) * BASIC METABOLIC PANEL (CALCIUM TOTAL)(Performed 06/30/2022) * VANCOMYCIN LEVEL TROUGH(Performed 06/30/2022) * VANCOMYCIN LEVEL TROUGH(Performed 06/30/2022) * EKG 12-LEAD(Performed 06/30/2022) Performed for Paroxysmal tachycardia, unspecified (HCC) * CULTURE MRSA(Performed 06/29/2022) * BASIC METABOLIC PANEL (CALCIUM TOTAL)(Performed 06/29/2022) * CBC W/O DIFFERENTIAL(Performed 06/29/2022) * PROCALCITONIN LEVEL(Performed 06/28/2022) * LACTIC ACID BLOOD(Performed 06/28/2022) * LACTIC ACID BLOOD(Performed 06/28/2022) * URINALYSIS REFLEX TO MICROSCOPIC NO CULTURE(Performed 06/28/2022) * LEGIONELLA ANTIGEN URINE(Performed 06/28/2022) * LACTIC ACID REPEAT REFLEX(Performed 06/28/2022) * LACTIC ACID BLOOD REFLEX TO REPEAT(Performed 06/28/2022) * TROPONIN I(Performed 06/28/2022) * CT CHEST PE W ABD PELVIS W CONT(Performed 06/28/2022) Performed for Hypoxia * CBC W AUTO DIFFERENTIAL(Performed 06/27/2022) * EKG 12-LEAD(Performed 06/27/2022) Performed for Hypoxia * SARS-COV-2 (COVID-19) FLU A/B RSV PCR RAPID(Performed 06/27/2022) * LACTIC ACID REPEAT REFLEX(Performed 06/27/2022) * PT-INR SLH(Performed 06/27/2022) * TROPONIN I(Performed 06/27/2022) * MAGNESIUM BLOOD(Performed 06/27/2022) * LIPASE BLOOD(Performed 06/27/2022) * LACTIC ACID BLOOD REFLEX TO REPEAT(Performed 06/27/2022) * COMPREHENSIVE METABOLIC PANEL(Performed 06/27/2022) * CULTURE BLOOD(Performed 06/27/2022) * HIGH FLOW NASAL CANNULA TX(Performed 06/27/2022) * XR CHEST 1VW PORTABLE(Performed 06/27/2022) Performed for Hypoxia * CULTURE BLOOD(Performed 06/27/2022) * LACOSAMIDE(Performed 06/22/2022) * VALPROIC ACID LEVEL(Performed 06/21/2022) * GLUCOSE - POINT OF CARE(Performed 06/21/2022) * CT HEAD WO CONTRAST(Performed 06/21/2022) Performed for Seizure (HCC) * COMPREHENSIVE METABOLIC PANEL(Performed 06/21/2022) * CBC W AUTO DIFFERENTIAL(Performed 06/21/2022) * CBC W AUTO DIFFERENTIAL(Performed 06/15/2022) Performed for Altered mental status, unspecified altered mental status type * COMPREHENSIVE METABOLIC PANEL(Performed 06/15/2022) Performed for Altered mental status, unspecified altered mental status type * MAGNESIUM BLOOD(Performed 06/15/2022) Performed for Altered mental status, unspecified altered mental status type * PHOSPHORUS BLOOD(Performed 06/15/2022) Performed for Altered mental status, unspecified altered mental status type * CBC W AUTO DIFFERENTIAL(Performed 06/14/2022) Performed for Altered mental status, unspecified altered mental status type * COMPREHENSIVE METABOLIC PANEL(Performed 06/14/2022) Performed for Altered mental status, unspecified altered mental status type * MAGNESIUM BLOOD(Performed 06/14/2022) Performed for Altered mental status, unspecified altered mental status type * PHOSPHORUS BLOOD(Performed 06/14/2022) Performed for Altered mental status, unspecified altered mental status type * CLOBAZAM QUANT BLOOD(Performed 06/13/2022) Performed for Altered mental status, unspecified altered mental status type * LACOSAMIDE(Performed 06/13/2022) Performed for Altered mental status, unspecified altered mental status type * LEVETIRACETAM LEVEL(Performed 06/13/2022) Performed for Altered mental status, unspecified altered mental status type * CBC W AUTO DIFFERENTIAL(Performed 06/13/2022) Performed for Altered mental status, unspecified altered mental status type * COMPREHENSIVE METABOLIC PANEL(Performed 06/13/2022) Performed for Altered mental status, unspecified altered mental status type * MAGNESIUM BLOOD(Performed 06/13/2022) Performed for Altered mental status, unspecified altered mental status type * PHOSPHORUS BLOOD(Performed 06/13/2022) Performed for Altered mental status, unspecified altered mental status type * GLUCOSE - POINT OF CARE(Performed 06/13/2022) * TSH REFLEX FREE T4(Performed 06/12/2022) Performed for Altered mental status, unspecified altered mental status type * CBC W AUTO DIFFERENTIAL(Performed 06/12/2022) Performed for Altered mental status, unspecified altered mental status type * COMPREHENSIVE METABOLIC PANEL(Performed 06/12/2022) Performed for Altered mental status, unspecified altered mental status type * MAGNESIUM BLOOD(Performed 06/12/2022) Performed for Altered mental status, unspecified altered mental status type * PHOSPHORUS BLOOD(Performed 06/12/2022) Performed for Altered mental status, unspecified altered mental status type * CULTURE SPUTUM+GRAM STAIN(Performed 06/12/2022) * CT CHEST ABDOMEN PELVIS W CONT(Performed 06/12/2022) Performed for Aspiration into lower respiratory tract, initial encounter, Hypoxia * PT EVAL AND TREAT(Performed 06/12/2022) * OT EVAL AND TREAT(Performed 06/12/2022) * URINALYSIS REFLEX MICROSCOPIC REFLEX CULTURE(Performed 06/12/2022) * CBC W AUTO DIFFERENTIAL(Performed 06/11/2022) * COMPREHENSIVE METABOLIC PANEL(Performed 06/11/2022) * MAGNESIUM BLOOD(Performed 06/11/2022) * PHOSPHORUS BLOOD(Performed 06/11/2022) * PROCALCITONIN LEVEL(Performed 06/11/2022) * SARS-COV-2 (COVID-19) FLU A/B RSV PCR RAPID(Performed 06/11/2022) * XR CHEST 1VW PORTABLE(Performed 06/11/2022) Performed for Sepsis, due to unspecified organism, unspecified whether acute organ dysfunction present (HCC) * CARDIAC EKG ORDER(Performed 06/03/2022) * PHOSPHORUS BLOOD(Performed 06/03/2022) * MAGNESIUM BLOOD(Performed 06/03/2022) * BASIC METABOLIC PANEL (CALCIUM TOTAL)(Performed 06/03/2022) * CBC W/O DIFFERENTIAL(Performed 06/03/2022) * SARS-COV-2 (COVID-19) RAPID(Performed 06/02/2022) * FL SWALLOWING FUNCTION STUDY(Performed 06/02/2022) Performed for Dysphagia, oropharyngeal phase * PROCALCITONIN LEVEL(Performed 06/02/2022) * PHOSPHORUS BLOOD(Performed 06/02/2022) * MAGNESIUM BLOOD(Performed 06/02/2022) * BASIC METABOLIC PANEL (CALCIUM TOTAL)(Performed 06/02/2022) * CBC W/O DIFFERENTIAL(Performed 06/02/2022) * XR CHEST 2VW(Performed 06/01/2022) Performed for Pulmonary infiltrate * VANCOMYCIN LEVEL TROUGH(Performed 06/01/2022) * BASIC METABOLIC PANEL (CALCIUM TOTAL)(Performed 06/01/2022) * CBC W/O DIFFERENTIAL(Performed 06/01/2022) * MRSA DNA PCR(Performed 05/31/2022) * MRSA DNA PCR(Performed 05/31/2022) * BASIC METABOLIC PANEL (CALCIUM TOTAL)(Performed 05/31/2022) * CBC W/O DIFFERENTIAL(Performed 05/31/2022) * URINALYSIS W/MICROSCOPIC REFLEX TO CULTURE(Performed 05/30/2022) * CT CHEST PE W ABD PELVIS W CONT(Performed 05/30/2022) Performed for Acute on chronic respiratory failure with hypoxia (HCC), Abdominal pain, generalized * TROPONIN I(Performed 05/30/2022) * SARS-COV-2 (COVID-19) FLU A/B RSV PCR RAPID(Performed 05/30/2022) * EKG 12-LEAD(Performed 05/30/2022) Performed for Acute on chronic respiratory failure with hypoxia (HCC) * CULTURE BLOOD(Performed 05/30/2022) * LEVETIRACETAM LEVEL(Performed 05/30/2022) * LACOSAMIDE(Performed 05/30/2022) * VALPROIC ACID LEVEL(Performed 05/30/2022) * PROCALCITONIN LEVEL(Performed 05/30/2022) * COMPREHENSIVE METABOLIC PANEL(Performed 05/30/2022) * CBC W AUTO DIFFERENTIAL(Performed 05/30/2022) * TROPONIN I(Performed 05/30/2022) * LACTIC ACID BLOOD REFLEX TO REPEAT(Performed 05/30/2022) * CULTURE BLOOD(Performed 05/30/2022) * LAB RESULTS ORDER(Performed 05/28/2022) * LAB RESULTS ORDER(Performed 05/25/2022) * LAB RESULTS ORDER(Performed 05/25/2022) * FL ESOPHAGRAM(Performed 05/14/2022) Performed for Oropharyngeal dysphagia * GLUCOSE - POINT OF CARE(Performed 05/14/2022) * PHOSPHORUS BLOOD(Performed 05/14/2022) * MAGNESIUM BLOOD(Performed 05/14/2022) * COMPREHENSIVE METABOLIC PANEL(Performed 05/14/2022) * CBC W AUTO DIFFERENTIAL(Performed 05/14/2022) * GLUCOSE - POINT OF CARE(Performed 05/14/2022) * GLUCOSE - POINT OF CARE(Performed 05/13/2022) * GLUCOSE - POINT OF CARE(Performed 05/13/2022) * GLUCOSE - POINT OF CARE(Performed 05/13/2022) * VALPROIC ACID LEVEL(Performed 05/13/2022) Performed for Seizures ([facility]) * PHOSPHORUS BLOOD(Performed 05/13/2022) * MAGNESIUM BLOOD(Performed 05/13/2022) * COMPREHENSIVE METABOLIC PANEL(Performed 05/13/2022) * CBC W AUTO DIFFERENTIAL(Performed 05/13/2022) * GLUCOSE - POINT OF CARE(Performed 05/13/2022) * GLUCOSE - POINT OF CARE(Performed 05/13/2022) * GLUCOSE - POINT OF CARE(Performed 05/12/2022) * FL SWALLOWING FUNCTION STUDY(Performed 05/12/2022) Performed for Seizures ([facility]) * GLUCOSE - POINT OF CARE(Performed 05/12/2022) * CARDIAC EKG ORDER(Performed 05/12/2022) * GLUCOSE - POINT OF CARE(Performed 05/12/2022) * GLUCOSE - POINT OF CARE(Performed 05/12/2022) * HEMOGLOBIN A1C(Performed 05/12/2022) Performed for Seizures ([facility]) * PHOSPHORUS BLOOD(Performed 05/12/2022) * MAGNESIUM BLOOD(Performed 05/12/2022) * COMPREHENSIVE METABOLIC PANEL(Performed 05/12/2022) * CBC W AUTO DIFFERENTIAL(Performed 05/12/2022) * TROPONIN I(Performed 05/11/2022) * MAGNESIUM BLOOD(Performed 05/11/2022) * URINALYSIS REFLEX TO MICROSCOPIC NO CULTURE(Performed 05/11/2022) * TROPONIN I(Performed 05/11/2022) * SARS-COV-2 (COVID-19)+INFLU A+B PCR RAPID(Performed 05/11/2022) * CT HEAD WO CONTRAST(Performed 05/11/2022) Performed for Seizures ([facility]) * PT-INR SL[facility](Performed 05/11/2022) * COMPREHENSIVE METABOLIC PANEL(Performed 05/11/2022) * CBC W AUTO DIFFERENTIAL(Performed 05/11/2022) * BLOOD GASES ANA + COOX PANEL(Performed 05/11/2022) * XR CHEST 1VW PORTABLE(Performed 05/11/2022) Performed for Seizures ([facility]) * EKG 12-LEAD(Performed 05/11/2022) Performed for Seizures ([facility]) * GLUCOSE - POINT OF CARE(Performed 04/01/2022) * BASIC METABOLIC PANEL (CALCIUM TOTAL)(Performed 04/01/2022) * CBC W/O DIFFERENTIAL(Performed 04/01/2022) * GLUCOSE - POINT OF CARE(Performed 03/31/2022) * GLUCOSE - POINT OF CARE(Performed 03/31/2022) * GLUCOSE - POINT OF CARE(Performed 03/31/2022) * GLUCOSE - POINT OF CARE(Performed 03/31/2022) * BASIC METABOLIC PANEL (CALCIUM TOTAL)(Performed 03/31/2022) * CBC W/O DIFFERENTIAL(Performed 03/31/2022) * GLUCOSE - POINT OF CARE(Performed 03/30/2022) * GLUCOSE - POINT OF CARE(Performed 03/30/2022) * GLUCOSE - POINT OF CARE(Performed 03/30/2022) * BASIC METABOLIC PANEL (CALCIUM TOTAL)(Performed 03/30/2022) * CBC W/O DIFFERENTIAL(Performed 03/30/2022) * GLUCOSE - POINT OF CARE(Performed 03/29/2022) * GLUCOSE - POINT OF CARE(Performed 03/29/2022) * GLUCOSE - POINT OF CARE(Performed 03/29/2022) * BASIC METABOLIC PANEL (CALCIUM TOTAL)(Performed 03/29/2022) * CBC W/O DIFFERENTIAL(Performed 03/29/2022) * GLUCOSE - POINT OF CARE(Performed 03/28/2022) * GLUCOSE - POINT OF CARE(Performed 03/28/2022) * BASIC METABOLIC PANEL (CALCIUM TOTAL)(Performed 03/28/2022) * CBC W/O DIFFERENTIAL(Performed 03/28/2022) * GLUCOSE - POINT OF CARE(Performed 03/28/2022) * GLUCOSE - POINT OF CARE(Performed 03/27/2022) * GLUCOSE - POINT OF CARE(Performed 03/27/2022) * BASIC METABOLIC PANEL (CALCIUM TOTAL)(Performed 03/27/2022) * CBC W/O DIFFERENTIAL(Performed 03/27/2022) * GLUCOSE - POINT OF CARE(Performed 03/26/2022) * GLUCOSE - POINT OF CARE(Performed 03/26/2022) * GLUCOSE - POINT OF CARE(Performed 03/26/2022) * BASIC METABOLIC PANEL (CALCIUM TOTAL)(Performed 03/26/2022) * CBC W/O DIFFERENTIAL(Performed 03/26/2022) * DE ED EGD FLEX TRANSORAL DX(Performed 03/25/2022) Performed for Malnutrition, unspecified type (HCC) * ENDOTRACHEAL TUBE NOTE(Performed 03/25/2022) * EGD(Performed 03/25/2022) * GLUCOSE - POINT OF CARE(Performed 03/25/2022) * GLUCOSE - POINT OF CARE(Performed 03/25/2022) * BASIC METABOLIC PANEL (CALCIUM TOTAL)(Performed 03/25/2022) * CBC W/O DIFFERENTIAL(Performed 03/25/2022) * GLUCOSE - POINT OF CARE(Performed 03/24/2022) * GLUCOSE - POINT OF CARE(Performed 03/24/2022) * GLUCOSE - POINT OF CARE(Performed 03/24/2022) * PHOSPHORUS BLOOD(Performed 03/24/2022) * MAGNESIUM BLOOD(Performed 03/24/2022) * BASIC METABOLIC PANEL (CALCIUM TOTAL)(Performed 03/24/2022) * CBC W/O DIFFERENTIAL(Performed 03/24/2022) * GLUCOSE - POINT OF CARE(Performed 03/23/2022) * BASIC METABOLIC PANEL (CALCIUM TOTAL)(Performed 03/23/2022) * CBC W/O DIFFERENTIAL(Performed 03/23/2022) * GLUCOSE - POINT OF CARE(Performed 03/22/2022) * FL SWALLOWING FUNCTION STUDY(Performed 03/22/2022) Performed for Sepsis without acute organ dysfunction, due to unspecified organism ([facility]) * BASIC METABOLIC PANEL (CALCIUM TOTAL)(Performed 03/22/2022) * CBC W/O DIFFERENTIAL(Performed 03/22/2022) * GLUCOSE - POINT OF CARE(Performed 03/21/2022) * BASIC METABOLIC PANEL (CALCIUM TOTAL)(Performed 03/21/2022) * CBC W/O DIFFERENTIAL(Performed 03/21/2022) * BASIC METABOLIC PANEL (CALCIUM TOTAL)(Performed 03/20/2022) * CBC W/O DIFFERENTIAL(Performed 03/20/2022) * GLUCOSE - POINT OF CARE(Performed 03/19/2022) * BASIC METABOLIC PANEL (CALCIUM TOTAL)(Performed 03/19/2022) * CBC W/O DIFFERENTIAL(Performed 03/19/2022) * BASIC METABOLIC PANEL (CALCIUM TOTAL)(Performed 03/18/2022) * VANCOMYCIN LEVEL TROUGH(Performed 03/18/2022) * CT HEAD WO CONTRAST(Performed 03/17/2022) Performed for Sepsis without acute organ dysfunction, due to unspecified organism ([facility]) * XR CHEST 1VW PORTABLE(Performed 03/17/2022) Performed for Sepsis without acute organ dysfunction, due to unspecified organism ([facility]) * GLUCOSE - POINT OF CARE(Performed 03/17/2022) * COMPREHENSIVE METABOLIC PANEL(Performed 03/17/2022) * CBC W/O DIFFERENTIAL(Performed 03/17/2022) * LACOSAMIDE(Performed 03/17/2022) * EEG VIDEO MONITORING(Performed 03/16/2022) * GLUCOSE - POINT OF CARE(Performed 03/16/2022) * MAGNESIUM BLOOD(Performed 03/16/2022) * RENAL FUNCTION PANEL(Performed 03/16/2022) * CBC W AUTO DIFFERENTIAL(Performed 03/16/2022) * PT EVAL AND TREAT(Performed 03/15/2022) * OT EVAL AND TREAT(Performed 03/15/2022) * PATHOLOGY TISSUE(Performed 03/15/2022) 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[facility]) * AMPUTATION BELOW-KNEE(Performed 03/15/2022) 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[facility]) * ENDOTRACHEAL TUBE NOTE(Performed 03/15/2022) * VANCOMYCIN LEVEL TROUGH(Performed 03/15/2022) * MRI FOOT LEFT WWO CONTRAST(Performed 03/15/2022) Performed for Bacteremia, PAD (peripheral artery disease) ([facility]) * MAGNESIUM BLOOD(Performed 03/14/2022) * RENAL FUNCTION PANEL(Performed 03/14/2022) * CBC W AUTO DIFFERENTIAL(Performed 03/14/2022) * TYPE + SCREEN PANEL(Performed 03/14/2022) * PHOSPHORUS BLOOD(Performed 03/14/2022) * MAGNESIUM BLOOD(Performed 03/14/2022) * COMPREHENSIVE METABOLIC PANEL(Performed 03/14/2022) * CBC W AUTO DIFFERENTIAL(Performed 03/14/2022) * GLUCOSE - POINT OF CARE(Performed 03/13/2022) * VANCOMYCIN LEVEL TROUGH(Performed 03/13/2022) * GLUCOSE - POINT OF CARE(Performed 03/13/2022) * MAGNESIUM BLOOD(Performed 03/13/2022) * RENAL FUNCTION PANEL(Performed 03/13/2022) * CBC W AUTO DIFFERENTIAL(Performed 03/13/2022) * CULTURE BLOOD(Performed 03/12/2022) * MAGNESIUM BLOOD(Performed 03/12/2022) * CBC W AUTO DIFFERENTIAL(Performed 03/12/2022) * RENAL FUNCTION PANEL(Performed 03/12/2022) * VALPROIC ACID LEVEL(Performed 03/12/2022) * CULTURE BLOOD(Performed 03/12/2022) * VANCOMYCIN LEVEL TROUGH(Performed 03/11/2022) * ECHO COMPLETE(Performed 03/11/2022) Performed for Sepsis without acute organ dysfunction, due to unspecified organism (HCC) * URINALYSIS REFLEX TO MICROSCOPIC NO CULTURE(Performed 03/11/2022) * CT HEAD WO CONTRAST(Performed 03/11/2022) Performed for Bacteremia * PHOSPHORUS BLOOD(Performed 03/11/2022) * MAGNESIUM BLOOD(Performed 03/11/2022) * LACTIC ACID BLOOD(Performed 03/11/2022) * BLOOD GASES ART + COOX PANEL(Performed 03/11/2022) * PT-INR [facility](Performed 03/11/2022) * COMPREHENSIVE METABOLIC PANEL(Performed 03/11/2022) * CBC W AUTO DIFFERENTIAL(Performed 03/11/2022) * GLUCOSE - POINT OF CARE(Performed 03/11/2022) * CULTURE BLOOD(Performed 03/11/2022) * CULTURE BLOOD(Performed 03/11/2022) * CT HEAD WO CONTRAST(Performed 03/10/2022) Performed for Acute encephalopathy * VANCOMYCIN LEVEL TROUGH(Performed 03/10/2022) * CBC W/O DIFFERENTIAL(Performed 03/10/2022) * MAGNESIUM BLOOD(Performed 03/10/2022) * RENAL FUNCTION PANEL(Performed 03/10/2022) * LACOSAMIDE(Performed 03/10/2022) * CLOBAZAM QUANT BLOOD(Performed 03/10/2022) * PT EVAL AND TREAT(Performed 03/10/2022) * OT EVAL AND TREAT(Performed 03/10/2022) * VAS LEFT ARTERIAL DUPLEX LE(Performed 03/09/2022) Performed for Sepsis without acute organ dysfunction, due to unspecified organism (HCC) * VAS ARTERIAL ANKLE ARM INDEX(Performed 03/09/2022) Performed for Sepsis without acute organ dysfunction, due to unspecified organism (HCC) * CARDIAC EKG ORDER(Performed 03/09/2022) * MRSA DNA PCR(Performed 03/09/2022) * COMPREHENSIVE METABOLIC PANEL(Performed 03/09/2022) * PROCALCITONIN LEVEL(Performed 03/09/2022) * CULTURE BLOOD(Performed 03/09/2022) * DIFFERENTIAL MANUAL(Performed 03/09/2022) * CBC W AUTO DIFFERENTIAL(Performed 03/09/2022) * LACTIC ACID BLOOD(Performed 03/09/2022) * CULTURE BLOOD(Performed 03/09/2022) * CT CHEST ABDOMEN PELVIS W CONT(Performed 03/08/2022) Performed for Fever, unspecified fever cause * SARS-COV-2 (COVID-19)+INFLU A+B PCR RAPID(Performed 03/08/2022) * LACTIC ACID BLOOD REFLEX TO REPEAT(Performed 03/08/2022) * TROPONIN I(Performed 03/08/2022) * LACTIC ACID REPEAT REFLEX(Performed 03/08/2022) * LACTIC ACID BLOOD REFLEX TO REPEAT(Performed 03/08/2022) * TROPONIN I(Performed 03/08/2022) * URINALYSIS REFLEX TO MICROSCOPIC NO CULTURE(Performed 03/08/2022) * CULTURE URINE(Performed 03/08/2022) * XR FOOT LEFT 3VW OR MORE(Performed 03/08/2022) Performed for Fever, unspecified fever cause * XR CHEST 1VW PORTABLE(Performed 03/08/2022) Performed for Fever, unspecified fever cause * VALPROIC ACID LEVEL(Performed 03/08/2022) * CULTURE BLOOD(Performed 03/08/2022) * LACTIC ACID REPEAT REFLEX(Performed 03/08/2022) * DIFFERENTIAL MANUAL(Performed 03/08/2022) * LEVETIRACETAM LEVEL(Performed 03/08/2022) * COMPREHENSIVE METABOLIC PANEL(Performed 03/08/2022) * CBC W AUTO DIFFERENTIAL(Performed 03/08/2022) * TROPONIN I(Performed 03/08/2022) * LACTIC ACID BLOOD REFLEX TO REPEAT(Performed 03/08/2022) * CULTURE BLOOD(Performed 03/08/2022) * GLUCOSE - POINT OF CARE(Performed 03/08/2022) * EKG 12-LEAD(Performed 03/08/2022) Performed for Fever, unspecified fever cause * LACTIC ACID REPEAT REFLEX(Performed 03/05/2022) * LACTIC ACID BLOOD REFLEX TO REPEAT(Performed 03/05/2022) * COMPREHENSIVE METABOLIC PANEL(Performed 03/05/2022) * XR FOOT LEFT 3VW OR MORE(Performed 03/05/2022) Performed for Left foot pain * LACTIC ACID REPEAT REFLEX(Performed 03/05/2022) * LACTIC ACID BLOOD REFLEX TO REPEAT(Performed 03/05/2022) * PT-INR [facility]H(Performed 03/05/2022) * CBC W AUTO DIFFERENTIAL(Performed 03/05/2022) * GLUCOSE - POINT OF CARE(Performed 01/07/2022) * GLUCOSE - POINT OF CARE(Performed 01/07/2022) * PHOSPHORUS BLOOD(Performed 01/07/2022) * MAGNESIUM BLOOD(Performed 01/07/2022) * BASIC METABOLIC PANEL (CALCIUM TOTAL)(Performed 01/07/2022) * CBC W AUTO DIFFERENTIAL(Performed 01/07/2022) * GLUCOSE - POINT OF CARE(Performed 01/07/2022) * GLUCOSE - POINT OF CARE(Performed 01/07/2022) * GLUCOSE - POINT OF CARE(Performed 01/06/2022) * GLUCOSE - POINT OF CARE(Performed 01/06/2022) * GLUCOSE - POINT OF CARE(Performed 01/06/2022) * GLUCOSE - POINT OF CARE(Performed 01/06/2022) * GLUCOSE - POINT OF CARE(Performed 01/06/2022) * GLUCOSE - POINT OF CARE(Performed 01/06/2022) * GLUCOSE - POINT OF CARE(Performed 01/06/2022) * PHOSPHORUS BLOOD(Performed 01/06/2022) * MAGNESIUM BLOOD(Performed 01/06/2022) * BASIC METABOLIC PANEL (CALCIUM TOTAL)(Performed 01/06/2022) * CBC W AUTO DIFFERENTIAL(Performed 01/06/2022) * GLUCOSE - POINT OF CARE(Performed 01/06/2022) * GLUCOSE - POINT OF CARE(Performed 01/05/2022) * GLUCOSE - POINT OF CARE(Performed 01/05/2022) * GLUCOSE - POINT OF CARE(Performed 01/05/2022) * GLUCOSE - POINT OF CARE(Performed 01/05/2022) * GLUCOSE - POINT OF CARE(Performed 01/05/2022) * LEVETIRACETAM LEVEL(Performed 01/05/2022) * LACOSAMIDE(Performed 01/05/2022) * CLOBAZAM QUANT BLOOD(Performed 01/05/2022) * VALPROIC ACID LEVEL(Performed 01/05/2022) * PHOSPHORUS BLOOD(Performed 01/05/2022) * MAGNESIUM BLOOD(Performed 01/05/2022) * BASIC METABOLIC PANEL (CALCIUM TOTAL)(Performed 01/05/2022) * CBC W AUTO DIFFERENTIAL(Performed 01/05/2022) * GLUCOSE - POINT OF CARE(Performed 01/04/2022) * PHOSPHORUS BLOOD(Performed 01/04/2022) * MAGNESIUM BLOOD(Performed 01/04/2022) * BASIC METABOLIC PANEL (CALCIUM TOTAL)(Performed 01/04/2022) * CBC W AUTO DIFFERENTIAL(Performed 01/04/2022) * GLUCOSE - POINT OF CARE(Performed 01/04/2022) * GLUCOSE - POINT OF CARE(Performed 01/04/2022) * GLUCOSE - POINT OF CARE(Performed 01/04/2022) * GLUCOSE - POINT OF CARE(Performed 01/03/2022) * GLUCOSE - POINT OF CARE(Performed 01/03/2022) * GLUCOSE - POINT OF CARE(Performed 01/03/2022) * GLUCOSE - POINT OF CARE(Performed 01/03/2022) * PHOSPHORUS BLOOD(Performed 01/03/2022) * MAGNESIUM BLOOD(Performed 01/03/2022) * BASIC METABOLIC PANEL (CALCIUM TOTAL)(Performed 01/03/2022) * CBC W AUTO DIFFERENTIAL(Performed 01/03/2022) * GLUCOSE - POINT OF CARE(Performed 01/02/2022) * GLUCOSE - POINT OF CARE(Performed 01/02/2022) * GLUCOSE - POINT OF CARE(Performed 01/02/2022) * GLUCOSE - POINT OF CARE(Performed 01/02/2022) * GLUCOSE - POINT OF CARE(Performed 01/02/2022) * PHOSPHORUS BLOOD(Performed 01/02/2022) * MAGNESIUM BLOOD(Performed 01/02/2022) * BASIC METABOLIC PANEL (CALCIUM TOTAL)(Performed 01/02/2022) * CBC W AUTO DIFFERENTIAL(Performed 01/02/2022) * HEMOGLOBIN A1C(Performed 01/01/2022) * PHOSPHORUS BLOOD(Performed 01/01/2022) * MAGNESIUM BLOOD(Performed 01/01/2022) * BASIC METABOLIC PANEL (CALCIUM TOTAL)(Performed 01/01/2022) * CBC W AUTO DIFFERENTIAL(Performed 01/01/2022) * GLUCOSE - POINT OF CARE(Performed 12/31/2021) * XR ABDOMEN KUB PORTABLE(Performed 12/31/2021) Performed for Seizure (HCC) * GLUCOSE - POINT OF CARE(Performed 12/31/2021) * MAGNESIUM BLOOD(Performed 12/31/2021) * BASIC METABOLIC PANEL (CALCIUM TOTAL)(Performed 12/31/2021) * PHOSPHORUS BLOOD(Performed 12/31/2021) * CBC W AUTO DIFFERENTIAL(Performed 12/31/2021) * CK BLOOD(Performed 12/31/2021) * XR ABDOMEN KUB PORTABLE(Performed 12/30/2021) Performed for Dysphagia, oropharyngeal phase * FL ORAL [place] OR D TUBE PLACEMENT(Performed 12/30/2021) Performed for 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, not intractable, without status epilepticus (HCC) * EKG 12-LEAD(Performed 12/30/2021) Performed for Seizure (HCC) * PT EVAL AND TREAT(Performed 12/30/2021) * OT EVAL AND TREAT(Performed 12/30/2021) * XR CHEST 1VW PORTABLE(Performed 12/30/2021) Performed for 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, not intractable, without status epilepticus (HCC) * EEG VIDEO MONITORING(Performed 12/30/2021) * VALPROIC ACID LEVEL(Performed 12/30/2021) * COMPREHENSIVE METABOLIC PANEL(Performed 12/30/2021) * CBC W AUTO DIFFERENTIAL(Performed 12/30/2021) * CT ANGIO BRAIN NECK STROKE(Performed 12/29/2021) 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 * CT BRAIN STROKE(Performed 12/29/2021) Performed for Weakness * GLUCOSE - POINT OF CARE(Performed 12/29/2021) * COMPREHENSIVE METABOLIC PANEL(Performed 12/29/2021) * CBC W/O DIFFERENTIAL(Performed 12/29/2021) * URINALYSIS REFLEX MICROSCOPIC REFLEX CULTURE(Performed 12/28/2021) * PHOSPHORUS BLOOD(Performed 12/27/2021) * MAGNESIUM BLOOD(Performed 12/27/2021) * COMPREHENSIVE METABOLIC PANEL(Performed 12/27/2021) * CBC W/O DIFFERENTIAL(Performed 12/27/2021) * OT EVAL AND TREAT(Performed 12/26/2021) * VALPROIC ACID LEVEL(Performed 12/21/2021) Performed for Seizures (HCC) * LEVETIRACETAM LEVEL(Performed 12/21/2021) Performed for Seizures (HCC) * LACOSAMIDE(Performed 12/21/2021) Performed for Seizures (HCC) * COMPREHENSIVE METABOLIC PANEL(Performed 12/21/2021) Performed for Seizures (HCC) * CBC W AUTO DIFFERENTIAL(Performed 12/21/2021) Performed for Seizures (HCC) * LACOSAMIDE(Performed 09/01/2021) Performed for Partial 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, intractable, with status epilepticus (HCC) * VALPROIC ACID FREE+TOTAL PANEL(Performed 09/01/2021) Performed for Partial 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, intractable, with status epilepticus (HCC) * LEVETIRACETAM LEVEL(Performed 09/01/2021) Performed for Partial 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, intractable, with status epilepticus (HCC) * CARDIAC EKG ORDER(Performed 05/05/2021) * CARDIAC EKG ORDER(Performed 05/05/2021) * XR CHEST 1VW PORTABLE(Performed 05/01/2021) Performed for Seizure (HCC) * CT CERVICAL SPINE WO CONTRAST(Performed 05/01/2021) Performed for Altered mental status, unspecified altered mental status type * CT HEAD WO CONTRAST(Performed 05/01/2021) Performed for Altered mental status, unspecified altered mental status type * EKG 12-LEAD(Performed 05/01/2021) Performed for Altered mental status, unspecified altered mental status type * LEVETIRACETAM LEVEL(Performed 05/01/2021) * VALPROIC ACID LEVEL(Performed 05/01/2021) * LACTIC ACID BLOOD(Performed 05/01/2021) * COMPREHENSIVE METABOLIC PANEL(Performed 05/01/2021) * CBC W AUTO DIFFERENTIAL(Performed 05/01/2021) * GLUCOSE - POINT OF CARE(Performed 05/01/2021) * VAS CAROTID DUPLEX BILATERAL(Performed 04/02/2021) Performed for Vertebral artery stenosis, bilateral, Carotid stenosis, bilateral * VAS TRANSCRANIAL DOPPLER COMP(Performed 04/02/2021) Performed for Vertebral artery stenosis, bilateral, Carotid stenosis, bilateral * CARDIAC EKG ORDER(Performed 02/26/2021) * TROPONIN I(Performed 02/25/2021) * PHOSPHORUS BLOOD(Performed 02/25/2021) * MAGNESIUM BLOOD(Performed 02/25/2021) * URINALYSIS REFLEX TO MICROSCOPIC NO CULTURE(Performed 02/25/2021) * URINE DRUG SCREEN IMMUNOASSAY(Performed 02/25/2021) * BLOOD GASES ANA + COOX PANEL(Performed 02/25/2021) * COMPREHENSIVE METABOLIC PANEL(Performed 02/25/2021) * AMMONIA(Performed 02/25/2021) * TYPE + SCREEN PANEL(Performed 02/25/2021) * EKG 12-LEAD(Performed 02/25/2021) Performed for Weakness * VALPROIC ACID LEVEL(Performed 02/25/2021) * ALCOHOL ETHYL BLOOD(Performed 02/25/2021) * CBC W AUTO DIFFERENTIAL(Performed 02/25/2021) * TROPONIN I(Performed 02/25/2021) * PT-INR [facility](Performed 02/25/2021) * CT ANGIO BRAIN NECK STROKE(Performed 02/25/2021) Performed for Weakness * BLOOD TYPE VERIFICATION(Performed 02/25/2021) * CREATININE - POCT INTERFACED(Performed 02/25/2021) * CT BRAIN STROKE(Performed 02/25/2021) Performed for Weakness * GLUCOSE - POINT OF CARE(Performed 02/25/2021) * CULTURE BLOOD(Performed 08/20/2020) * CULTURE BLOOD(Performed 08/20/2020) * US RETROPERITONEAL COMPLETE(Performed 08/20/2020) Performed for Urinary tract infection without hematuria, site unspecified * BASIC METABOLIC PANEL (CALCIUM TOTAL)(Performed 08/20/2020) * PHOSPHORUS BLOOD(Performed 08/20/2020) * MAGNESIUM BLOOD(Performed 08/20/2020) * CBC W/O DIFFERENTIAL(Performed 08/20/2020) * URINALYSIS REFLEX TO MICROSCOPIC NO CULTURE(Performed 08/19/2020) * CBC W AUTO DIFFERENTIAL(Performed 08/19/2020) * XR CHEST 1VW PORTABLE(Performed 08/19/2020) Performed for Seizure (HCC) * GLUCOSE - POINT OF CARE(Performed 08/18/2020) * GLUCOSE - POINT OF CARE(Performed 08/18/2020) * GLUCOSE - POINT OF CARE(Performed 08/18/2020) * GLUCOSE - POINT OF CARE(Performed 08/18/2020) * GLUCOSE - POINT OF CARE(Performed 08/17/2020) * VALPROIC ACID LEVEL(Performed 08/17/2020) * MAGNESIUM BLOOD(Performed 08/17/2020) * BASIC METABOLIC PANEL (CALCIUM TOTAL)(Performed 08/17/2020) * CBC W AUTO DIFFERENTIAL(Performed 08/17/2020) * GLUCOSE - POINT OF CARE(Performed 08/16/2020) * VALPROIC ACID LEVEL(Performed 08/16/2020) * GLUCOSE - POINT OF CARE(Performed 08/16/2020) * GLUCOSE - POINT OF CARE(Performed 08/16/2020) * VALPROIC ACID LEVEL(Performed 08/16/2020) * MAGNESIUM BLOOD(Performed 08/16/2020) * BASIC METABOLIC PANEL (CALCIUM TOTAL)(Performed 08/16/2020) * CBC W AUTO DIFFERENTIAL(Performed 08/16/2020) * GLUCOSE - POINT OF CARE(Performed 08/15/2020) * GLUCOSE - POINT OF CARE(Performed 08/15/2020) * MRI BRAIN WO CONTRAST(Performed 08/15/2020) Performed for Seizure (HCC) * CBC W AUTO DIFFERENTIAL(Performed 08/15/2020) * GLUCOSE - POINT OF CARE(Performed 08/15/2020) * XR ABDOMEN KUB PORTABLE(Performed 08/15/2020) Performed for Seizure (HCC) * XR PELVIS 1 OR 2VW(Performed 08/15/2020) Performed for Seizure (HCC) * HEPARIN PLATELET INDUCED ANTIBODY(Performed 08/15/2020) * MAGNESIUM BLOOD(Performed 08/15/2020) * BASIC METABOLIC PANEL (CALCIUM TOTAL)(Performed 08/15/2020) * VALPROIC ACID LEVEL(Performed 08/15/2020) * GLUCOSE - POINT OF CARE(Performed 08/15/2020) * GLUCOSE - POINT OF CARE(Performed 08/14/2020) * GLUCOSE - POINT OF CARE(Performed 08/14/2020) * GLUCOSE - POINT OF CARE(Performed 08/14/2020) * GLUCOSE - POINT OF CARE(Performed 08/14/2020) * VALPROIC ACID LEVEL(Performed 08/14/2020) Performed for Seizure (HCC) * PHOSPHORUS BLOOD(Performed 08/14/2020) Performed for Seizure (HCC) * MAGNESIUM BLOOD(Performed 08/14/2020) Performed for Seizure (HCC) * BASIC METABOLIC PANEL (CALCIUM TOTAL)(Performed 08/14/2020) Performed for Seizure (HCC) * CBC W/O DIFFERENTIAL(Performed 08/14/2020) Performed for Seizure ([facility]) * GLUCOSE - POINT OF CARE(Performed 08/13/2020) * SARS-COV-2 (COVID-19)+INFLU A+B PCR RAPID(Performed 08/13/2020) Performed for Seizures ([facility]) * URINALYSIS W/MICROSCOPIC NO CULTURE(Performed 08/13/2020) * LACOSAMIDE(Performed 08/13/2020) * LEVETIRACETAM LEVEL(Performed 08/13/2020) * COMPREHENSIVE METABOLIC PANEL(Performed 08/13/2020) * CT HEAD WO CONTRAST(Performed 08/13/2020) Performed for Seizures ([facility]) * CBC W AUTO DIFFERENTIAL(Performed 08/13/2020) * VALPROIC ACID LEVEL(Performed 08/13/2020) * XR CHEST 1VW PORTABLE(Performed 08/13/2020) Performed for Seizures ([facility]) * VAS LEFT ARTERIAL DUPLEX LE(Performed 12/26/2019) Performed for PAD (peripheral artery disease) ([facility]) * VAS ARTERIAL ANKLE ARM INDEX(Performed 12/26/2019) Performed for PAD (peripheral artery disease) ([facility]) * CARDIAC EKG ORDER(Performed 12/16/2019) * IR ANGIOGRAM LEFT LEG(Performed 07/18/2019) Performed for PVD (peripheral vascular disease) ([facility]) * CBC W/O DIFFERENTIAL(Performed 07/18/2019) Performed for PVD (peripheral vascular disease) ([facility]), Therapeutic procedure * BASIC METABOLIC PANEL (CALCIUM TOTAL)(Performed 07/18/2019) Performed for PVD (peripheral vascular disease) ([facility]), Therapeutic procedure * PT-INR SLH(Performed 07/18/2019) Performed for PVD (peripheral vascular disease) ([facility]) * CARDIAC EKG ORDER(Performed 07/09/2019) * VAS ARTERIAL ANKLE ARM INDEX(Performed 07/02/2019) 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 ([facility]) * CT ANGIO ABDOMEN AORTA W RUNOFF(Performed 07/02/2019) 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 ([facility]) * CARDIAC EKG ORDER(Performed 06/28/2019) * CARDIAC EKG ORDER(Performed 06/27/2019) * CARDIAC EKG ORDER(Performed 06/20/2019) * LACOSAMIDE(Performed 06/18/2019) Performed for Intractable epilepsy with status epilepticus, unspecified epilepsy type ([facility]) * LEVETIRACETAM LEVEL(Performed 06/18/2019) Performed for Intractable epilepsy with status epilepticus, unspecified epilepsy type (HCC) * VALPROIC ACID LEVEL(Performed 06/18/2019) Performed for Intractable epilepsy with status epilepticus, unspecified epilepsy type (HCC) * COMPREHENSIVE METABOLIC PANEL(Performed 06/18/2019) Performed for Intractable epilepsy with status epilepticus, unspecified epilepsy type (HCC) * CBC W AUTO DIFFERENTIAL(Performed 06/18/2019) Performed for Intractable epilepsy with status epilepticus, unspecified epilepsy type (HCC) * MRI BRAIN WWO CONTRAST(Performed 06/16/2019) Performed for Intractable epilepsy with status epilepticus, unspecified epilepsy type (HCC) * LACOSAMIDE(Performed 05/21/2019) Performed for 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, intractable, without status epilepticus (HCC), Medication monitoringencounter * VALPROIC ACID FREE+TOTAL PANEL(Performed 05/21/2019) Performed for 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, intractable, without status epilepticus (HCC), Medication monitoringencounter * LEVETIRACETAM LEVEL(Performed 05/21/2019) Performed for 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, intractable, without status epilepticus (HCC), Medication monitoringencounter * CARDIAC EKG ORDER(Performed 05/17/2019) * GLUCOSE - POINT OF CARE(Performed 05/16/2019) * ECHO COMPLETE(Performed 05/16/2019) Performed for SVT (supraventricular tachycardia) * GLUCOSE - POINT OF CARE(Performed 05/16/2019) * PHOSPHORUS BLOOD(Performed 05/16/2019) * MAGNESIUM BLOOD(Performed 05/16/2019) * BASIC METABOLIC PANEL (CALCIUM TOTAL)(Performed 05/16/2019) * CBC W AUTO DIFFERENTIAL(Performed 05/16/2019) * GLUCOSE - POINT OF CARE(Performed 05/16/2019) * GLUCOSE - POINT OF CARE(Performed 05/16/2019) * GLUCOSE - POINT OF CARE(Performed 05/16/2019) * GLUCOSE - POINT OF CARE(Performed 05/15/2019) * T4 FREE(Performed 05/15/2019) * TSH(Performed 05/15/2019) * EKG 12-LEAD(Performed 05/15/2019) Performed for SVT (supraventricular tachycardia) * GLUCOSE - POINT OF CARE(Performed 05/15/2019) * GLUCOSE - POINT OF CARE(Performed 05/15/2019) * CBC W AUTO DIFFERENTIAL(Performed 05/15/2019) * CK + CKMB PANEL(Performed 05/15/2019) * TROPONIN I(Performed 05/15/2019) * PHOSPHORUS BLOOD(Performed 05/15/2019) * MAGNESIUM BLOOD(Performed 05/15/2019) * BASIC METABOLIC PANEL (CALCIUM TOTAL)(Performed 05/15/2019) * GLUCOSE - POINT OF CARE(Performed 05/15/2019) * GLUCOSE - POINT OF CARE(Performed 05/15/2019) * GLUCOSE - POINT OF CARE(Performed 05/15/2019) * TROPONIN I(Performed 05/14/2019) * GLUCOSE - POINT OF CARE(Performed 05/14/2019) * EKG 12-LEAD(Performed 05/14/2019) Performed for SVT (supraventricular tachycardia) * GLUCOSE - POINT OF CARE(Performed 05/14/2019) * GLUCOSE - POINT OF CARE(Performed 05/14/2019) * GLUCOSE - POINT OF CARE(Performed 05/14/2019) * GLUCOSE - POINT OF CARE(Performed 05/14/2019) * PHOSPHORUS BLOOD(Performed 05/14/2019) * MAGNESIUM BLOOD(Performed 05/14/2019) * BASIC METABOLIC PANEL (CALCIUM TOTAL)(Performed 05/14/2019) * CBC W AUTO DIFFERENTIAL(Performed 05/14/2019) * GLUCOSE - POINT OF CARE(Performed 05/14/2019) * GLUCOSE - POINT OF CARE(Performed 05/13/2019) * TROPONIN I(Performed 05/13/2019) * EKG 12-LEAD(Performed 05/13/2019) Performed for Seizure (HCC) * XR ABDOMEN KUB PORTABLE(Performed 05/13/2019) Performed for Seizure (HCC) * GLUCOSE - POINT OF CARE(Performed 05/13/2019) * XR ABDOMEN KUB PORTABLE(Performed 05/13/2019) Performed for Seizure (HCC) * GLUCOSE - POINT OF CARE(Performed 05/13/2019) * GLUCOSE - POINT OF CARE(Performed 05/13/2019) * VALPROIC ACID LEVEL(Performed 05/13/2019) * PHOSPHORUS BLOOD(Performed 05/13/2019) * MAGNESIUM BLOOD(Performed 05/13/2019) * BASIC METABOLIC PANEL (CALCIUM TOTAL)(Performed 05/13/2019) * CBC W AUTO DIFFERENTIAL(Performed 05/13/2019) * GLUCOSE - POINT OF CARE(Performed 05/13/2019) * GLUCOSE - POINT OF CARE(Performed 05/13/2019) * GLUCOSE - POINT OF CARE(Performed 05/12/2019) * GLUCOSE - POINT OF CARE(Performed 05/12/2019) * GLUCOSE - POINT OF CARE(Performed 05/12/2019) * EEG VIDEO MONITORING(Performed 05/12/2019) * GLUCOSE - POINT OF CARE(Performed 05/12/2019) * HEMOGLOBIN A1C(Performed 05/12/2019) * PHOSPHORUS BLOOD(Performed 05/12/2019) * MAGNESIUM BLOOD(Performed 05/12/2019) * BASIC METABOLIC PANEL (CALCIUM TOTAL)(Performed 05/12/2019) * CBC W AUTO DIFFERENTIAL(Performed 05/12/2019) * GLUCOSE - POINT OF CARE(Performed 05/12/2019) * XR CHEST 1VW PORTABLE(Performed 05/12/2019) Performed for Seizure (HCC) * XR ABDOMEN KUB PORTABLE(Performed 05/12/2019) Performed for Seizure (HCC) * GLUCOSE - POINT OF CARE(Performed 05/12/2019) * GLUCOSE - POINT OF CARE(Performed 05/11/2019) * CULTURE URINE(Performed 05/11/2019) * GLUCOSE - POINT OF CARE(Performed 05/11/2019) * URINALYSIS W/MICROSCOPIC NO CULTURE(Performed 05/11/2019) * GLUCOSE - POINT OF CARE(Performed 05/11/2019) * MRI BRAIN WWO CONTRAST(Performed 05/11/2019) Performed for Seizure (HCC) * PHOSPHORUS BLOOD(Performed 05/11/2019) * MAGNESIUM BLOOD(Performed 05/11/2019) * BASIC METABOLIC PANEL (CALCIUM TOTAL)(Performed 05/11/2019) * CBC W AUTO DIFFERENTIAL(Performed 05/11/2019) * GLUCOSE - POINT OF CARE(Performed 05/10/2019) * XR ABDOMEN KUB(Performed 05/10/2019) Performed for Seizure (HCC) * GLUCOSE - POINT OF CARE(Performed 05/10/2019) * GLUCOSE - POINT OF CARE(Performed 05/10/2019) * XR ABDOMEN KUB PORTABLE(Performed 05/10/2019) Performed for Seizure (HCC) * VITAMIN D 25-HYDROXY(Performed 05/10/2019) * LEVETIRACETAM LEVEL(Performed 05/10/2019) * PHOSPHORUS BLOOD(Performed 05/10/2019) * MAGNESIUM BLOOD(Performed 05/10/2019) * VALPROIC ACID LEVEL(Performed 05/10/2019) * CBC W AUTO DIFFERENTIAL(Performed 05/10/2019) * BASIC METABOLIC PANEL (CALCIUM TOTAL)(Performed 05/10/2019) * XR CHEST 1VW PORTABLE(Performed 05/09/2019) Performed for Seizure (HCC) * PROLACTIN(Performed 01/24/2019) * LEVETIRACETAM LEVEL(Performed 01/24/2019) * CK BLOOD(Performed 01/24/2019) * VALPROIC ACID LEVEL(Performed 01/24/2019) * ALCOHOL ETHYL BLOOD(Performed 01/24/2019) * PHENYTOIN LEVEL TOTAL(Performed 01/24/2019) * COMPREHENSIVE METABOLIC PANEL(Performed 01/24/2019) * CBC W AUTO DIFFERENTIAL(Performed 01/24/2019) * CARDIAC EKG ORDER(Performed 01/22/2019) * EKG 12-LEAD(Performed 01/22/2019) Performed for Seizure (HCC) * PROLACTIN(Performed 01/22/2019) * VALPROIC ACID LEVEL(Performed 01/22/2019) * LEVETIRACETAM LEVEL(Performed 01/22/2019) * COMPREHENSIVE METABOLIC PANEL(Performed 01/22/2019) * CBC W AUTO DIFFERENTIAL(Performed 01/22/2019) * VALPROIC ACID LEVEL(Performed 01/15/2019) Performed for Seizure (HCC) * SODIUM BLOOD(Performed 01/15/2019) Performed for Hyponatremia * VITAMIN D 25-HYDROXY(Performed 01/15/2019) Performed for Hyponatremia * BASIC METABOLIC PANEL (CALCIUM TOTAL)(Performed 01/15/2019) Performed for Hyponatremia * SODIUM BLOOD(Performed 01/14/2019) Performed for Hyponatremia * OSMOLALITY URINE(Performed 01/14/2019) Performed for Seizure (HCC), Chronic hyponatremia * CREATININE URINE RANDOM(Performed 01/14/2019) Performed for Chronic hyponatremia * SODIUM URINE RANDOM(Performed 01/14/2019) Performed for Chronic hyponatremia * URINE DRUG SCREEN IMMUNOASSAY(Performed 01/14/2019) * URINALYSIS REFLEX TO MICROSCOPIC NO CULTURE(Performed 01/14/2019) Performed for Seizure (HCC), Chronic hyponatremia * PT EVAL AND TREAT(Performed 01/14/2019) * PHOSPHORUS BLOOD(Performed 01/14/2019) Performed for Seizure (HCC) * MAGNESIUM BLOOD(Performed 01/14/2019) Performed for Seizure (HCC) * CARBAMAZEPINE LEVEL TOTAL(Performed 01/14/2019) * LACTIC ACID BLOOD(Performed 01/14/2019) * VALPROIC ACID LEVEL(Performed 01/14/2019) * ALCOHOL ETHYL BLOOD(Performed 01/14/2019) * COMPREHENSIVE METABOLIC PANEL(Performed 01/14/2019) * CBC W AUTO DIFFERENTIAL(Performed 01/14/2019) * LEVETIRACETAM LEVEL(Performed 01/14/2019) * CT HEAD WO CONTRAST(Performed 01/14/2019) Performed for Seizure (HCC) * CARDIAC EKG ORDER(Performed 01/11/2019) * CARDIAC EKG ORDER(Performed 01/05/2019) * MAGNESIUM BLOOD(Performed 12/29/2018) Performed for Seizure (HCC) * BASIC METABOLIC PANEL (CALCIUM TOTAL)(Performed 12/29/2018) Performed for Seizure (HCC) * CBC W AUTO DIFFERENTIAL(Performed 12/29/2018) Performed for Seizure (HCC) * BASIC METABOLIC PANEL (CALCIUM TOTAL)(Performed 12/28/2018) Performed for Seizure (HCC) * CBC W/O DIFFERENTIAL(Performed 12/28/2018) Performed for Seizure (HCC) * EKG 12-LEAD(Performed 12/27/2018) Performed for Seizure (HCC) * CT HEAD WO CONTRAST(Performed 12/27/2018) Performed for Headache, unspecified headache type * URINE DRUG SCREEN IMMUNOASSAY(Performed 12/27/2018) * URINALYSIS W/MICROSCOPIC NO CULTURE(Performed 12/27/2018) * LEVETIRACETAM LEVEL(Performed 12/27/2018) * TSH(Performed 12/27/2018) * VALPROIC ACID LEVEL(Performed 12/27/2018) * COMPREHENSIVE METABOLIC PANEL(Performed 12/27/2018) * CBC W AUTO DIFFERENTIAL(Performed 12/27/2018) * VALPROIC ACID LEVEL(Performed 11/27/2018) * LEVETIRACETAM LEVEL(Performed 11/27/2018) * COMPREHENSIVE METABOLIC PANEL(Performed 11/27/2018) * CBC W AUTO DIFFERENTIAL(Performed 11/27/2018) * URINE DRUG SCREEN IMMUNOASSAY(Performed 10/21/2018) * URINALYSIS REFLEX TO MICROSCOPIC NO CULTURE(Performed 10/21/2018) * EKG 12-LEAD(Performed 10/21/2018) Performed for Seizure (HCC) * VALPROIC ACID LEVEL(Performed 10/21/2018) * OXCARBAZEPINE BLOOD(Performed 10/21/2018) * LEVETIRACETAM LEVEL(Performed 10/21/2018) * TROPONIN I(Performed 10/21/2018) * PHOSPHORUS BLOOD(Performed 10/21/2018) * MAGNESIUM BLOOD(Performed 10/21/2018) * CBC W AUTO DIFFERENTIAL(Performed 10/21/2018) * COMPREHENSIVE METABOLIC PANEL(Performed 10/21/2018) * HIV-1 HIV-2 ANTIGEN/ANTIBODY(Performed 09/05/2018) * VALPROIC ACID LEVEL(Performed 09/05/2018) * OXCARBAZEPINE BLOOD(Performed 09/05/2018) * LEVETIRACETAM LEVEL(Performed 09/05/2018) * CT CERVICAL SPINE WO CONTRAST(Performed 08/07/2018) Performed for Seizure (HCC) * CT HEAD WO CONTRAST(Performed 08/07/2018) Performed for Seizure (HCC) * VALPROIC ACID LEVEL(Performed 08/07/2018) * OXCARBAZEPINE BLOOD(Performed 08/07/2018) * CBC W AUTO DIFFERENTIAL(Performed 08/07/2018) * COMPREHENSIVE METABOLIC PANEL(Performed 08/07/2018) * ALCOHOL ETHYL BLOOD(Performed 08/07/2018) * LEVETIRACETAM LEVEL(Performed 08/07/2018) * PT EVAL AND TREAT(Performed 06/10/2018) * CT CERVICAL SPINE WO CONTRAST(Performed 06/10/2018) Performed for Seizures (HCC) * CT HEAD WO CONTRAST(Performed 06/10/2018) Performed for Seizures (HCC) * VALPROIC ACID LEVEL(Performed 06/10/2018) * COMPREHENSIVE METABOLIC PANEL(Performed 06/09/2018) * CBC W AUTO DIFFERENTIAL(Performed 06/09/2018) * CARDIAC EKG ORDER(Performed 06/07/2018) * URINALYSIS W/MICROSCOPIC NO CULTURE(Performed 04/30/2018) * LEVETIRACETAM LEVEL(Performed 04/30/2018) * OXCARBAZEPINE BLOOD(Performed 04/30/2018) * CT HEAD WO CONTRAST(Performed 04/30/2018) Performed for Seizure (HCC) * VALPROIC ACID LEVEL(Performed 04/30/2018) * CBC W AUTO DIFFERENTIAL(Performed 04/30/2018) * COMPREHENSIVE METABOLIC PANEL(Performed 04/30/2018) * TSH(Performed 04/30/2018) * GLUCOSE - POINT OF CARE(Performed 04/30/2018) * EKG 12-LEAD(Performed 04/30/2018) Performed for Seizure (HCC) * VALPROIC ACID LEVEL(Performed 03/31/2018) * LEVETIRACETAM LEVEL(Performed 03/31/2018) * MAGNESIUM BLOOD(Performed 03/31/2018) * BASIC METABOLIC PANEL (CALCIUM TOTAL)(Performed 03/31/2018) * CBC W AUTO DIFFERENTIAL(Performed 03/31/2018) * CT FACIAL BONES WO CONTRAST(Performed 03/31/2018) Performed for Seizure (HCC) * CT HEAD WO CONTRAST(Performed 03/31/2018) Performed for Seizure (HCC) * CT HEAD WO CONTRAST(Performed 03/03/2018) Performed for Seizure (HCC) * COMPREHENSIVE METABOLIC PANEL(Performed 03/03/2018) * VALPROIC ACID LEVEL(Performed 03/03/2018) * CBC W AUTO DIFFERENTIAL(Performed 03/03/2018) * MRI CERVICAL SPINE WO CONTRAST(Performed 02/13/2018) Performed for Gait instability, Neck pain, Osteoarthritis of cervical spine with myelopathy * LEVETIRACETAM LEVEL(Performed 02/01/2018) * VALPROIC ACID LEVEL(Performed 02/01/2018) * MAGNESIUM BLOOD(Performed 02/01/2018) * BASIC METABOLIC PANEL (CALCIUM TOTAL)(Performed 02/01/2018) * CBC W AUTO DIFFERENTIAL(Performed 02/01/2018) * HEPATITIS C AB SCREEN RFLX NAAT QUANT(Performed 01/30/2018) * HIV-1 HIV-2 ANTIGEN/ANTIBODY(Performed 01/30/2018) * MAGNESIUM BLOOD(Performed 01/30/2018) * HEPATIC FUNCTION PANEL(Performed 01/30/2018) * PHOSPHORUS BLOOD(Performed 01/30/2018) * MAGNESIUM BLOOD(Performed 01/30/2018) * ALCOHOL ETHYL BLOOD(Performed 01/30/2018) * LEVETIRACETAM LEVEL(Performed 01/30/2018) * VALPROIC ACID LEVEL(Performed 01/30/2018) * BASIC METABOLIC PANEL (CALCIUM TOTAL)(Performed 01/30/2018) * CBC W AUTO DIFFERENTIAL(Performed 01/30/2018) * FOLATE(Performed 01/09/2018) Performed for Folate deficiency * VITAMIN B12(Performed 01/09/2018) Performed for Vitamin B12 deficiency * VALPROIC ACID LEVEL(Performed 01/09/2018) Performed for Epilepsy with seizures of localized onset (HCC) * LEVETIRACETAM LEVEL(Performed 01/09/2018) Performed for Epilepsy with seizures of localized onset (HCC) * COMPREHENSIVE METABOLIC PANEL(Performed 01/09/2018) Performed for Epilepsy with seizures of localized onset (HCC) * CBC W AUTO DIFFERENTIAL(Performed 01/09/2018) Performed for Epilepsy with seizures of localized onset (HCC) * LEVETIRACETAM LEVEL(Performed 11/28/2017) * ALCOHOL ETHYL BLOOD(Performed 11/28/2017) * PHOSPHORUS BLOOD(Performed 11/28/2017) * MAGNESIUM BLOOD(Performed 11/28/2017) * COMPREHENSIVE METABOLIC PANEL(Performed 11/28/2017) * CBC W AUTO DIFFERENTIAL(Performed 11/28/2017) * PHOSPHORUS BLOOD(Performed 10/15/2017) * MAGNESIUM BLOOD(Performed 10/15/2017) * CBC W AUTO DIFFERENTIAL(Performed 10/15/2017) * BASIC METABOLIC PANEL (CALCIUM TOTAL)(Performed 10/15/2017) * XR CLAVICLE RIGHT 2VW(Performed 10/14/2017) Performed for Clavicle pain * HEPATIC FUNCTION PANEL(Performed 10/14/2017) * VALPROIC ACID LEVEL(Performed 10/14/2017) * PHOSPHORUS BLOOD(Performed 10/14/2017) * MAGNESIUM BLOOD(Performed 10/14/2017) * CBC W AUTO DIFFERENTIAL(Performed 10/14/2017) * BASIC METABOLIC PANEL (CALCIUM TOTAL)(Performed 10/14/2017) * HEPATIC FUNCTION PANEL(Performed 10/13/2017) * BASIC METABOLIC PANEL (CALCIUM TOTAL)(Performed 10/13/2017) * URINE DRUG SCREEN IMMUNOASSAY(Performed 10/13/2017) * URINALYSIS W/MICROSCOPIC NO CULTURE(Performed 10/13/2017) * LEVETIRACETAM LEVEL(Performed 10/13/2017) * CBC W AUTO DIFFERENTIAL(Performed 10/13/2017) * CT HEAD WO CONTRAST(Performed 10/13/2017) Performed for Clavicle pain * XR SHOULDER RIGHT 2VW OR MORE(Performed 10/13/2017) Performed for Clavicle pain * XR CHEST 1VW(Performed 10/13/2017) Performed for Clavicle pain * HEPATITIS C AB SCREEN RFLX NAAT QUANT(Performed 10/13/2017) * HIV-1 HIV-2 ANTIGEN/ANTIBODY(Performed 10/13/2017) * CT CERVICAL SPINE WO CONTRAST(Performed 08/29/2016) * BASIC METABOLIC PANEL (CALCIUM TOTAL)(Performed 08/29/2016) * CBC W AUTO DIFFERENTIAL(Performed 08/29/2016) * CBC W AUTO DIFFERENTIAL(Performed 08/29/2016) * DRUG ABUSE PANEL 10-20+ETHANOL URINE NO CONFIRM(Performed 08/28/2016) * URINALYSIS W/MICROSCOPIC NO CULTURE(Performed 08/28/2016) * CBC W AUTO DIFFERENTIAL(Performed 08/28/2016) * PHOSPHORUS BLOOD(Performed 08/28/2016) * ALBUMIN BLOOD(Performed 08/28/2016) * BASIC METABOLIC PANEL (CALCIUM TOTAL)(Performed 08/28/2016) * PHOSPHORUS BLOOD(Performed 08/28/2016) * MAGNESIUM BLOOD(Performed 08/28/2016) * PHENYTOIN LEVEL TOTAL(Performed 08/28/2016) * CBC W AUTO DIFFERENTIAL(Performed 08/28/2016) * EKG 12-LEAD(Performed 08/28/2016) * EKG 12-LEAD(Performed 08/28/2016) * CT HEAD WO CONTRAST(Performed 08/27/2016) * MAGNESIUM BLOOD(Performed 08/27/2016) * BASIC METABOLIC PANEL (CALCIUM TOTAL)(Performed 08/27/2016) * CBC W AUTO DIFFERENTIAL(Performed 08/27/2016) * ALCOHOL ETHYL BLOOD(Performed 08/27/2016) * CBC W AUTO DIFFERENTIAL(Performed 08/27/2016) * GLUCOSE - POINT OF CARE (AMB) SLU(Performed 08/27/2016) * GLUCOSE - POINT OF CARE (AMB) SLU(Performed 08/27/2016) * GLUCOSE ACCUCHECK(Performed 08/27/2016) * LEVETIRACETAM LEVEL(Performed 02/20/2016) * T4 FREE(Performed 02/20/2016) * FOLATE(Performed 02/20/2016) * VITAMIN B12(Performed 02/20/2016) * TSH(Performed 02/20/2016) * PHENYTOIN LEVEL TOTAL(Performed 08/13/2015) * BASIC METABOLIC PANEL (CALCIUM TOTAL)(Performed 08/13/2015) * PHOSPHORUS BLOOD(Performed 08/13/2015) * MAGNESIUM BLOOD(Performed 08/13/2015) * CBC W AUTO DIFFERENTIAL(Performed 08/13/2015) * CBC W AUTO DIFFERENTIAL(Performed 08/13/2015) * BASIC METABOLIC PANEL (CALCIUM TOTAL)(Performed 08/12/2015) * PHOSPHORUS BLOOD(Performed 08/12/2015) * MAGNESIUM BLOOD(Performed 08/12/2015) * PHENYTOIN LEVEL TOTAL(Performed 08/12/2015) * CBC W AUTO DIFFERENTIAL(Performed 08/12/2015) * CBC W AUTO DIFFERENTIAL(Performed 08/12/2015) * PHENYTOIN LEVEL TOTAL(Performed 08/11/2015) * BASIC METABOLIC PANEL (CALCIUM TOTAL)(Performed 08/11/2015) * PHOSPHORUS BLOOD(Performed 08/11/2015) * MAGNESIUM BLOOD(Performed 08/11/2015) * CBC W AUTO DIFFERENTIAL(Performed 08/11/2015) * CBC W AUTO DIFFERENTIAL(Performed 08/11/2015) * PHENYTOIN LEVEL TOTAL(Performed 08/10/2015) * BASIC METABOLIC PANEL (CALCIUM TOTAL)(Performed 08/10/2015) * PHOSPHORUS BLOOD(Performed 08/10/2015) * MAGNESIUM BLOOD(Performed 08/10/2015) * CBC W AUTO DIFFERENTIAL(Performed 08/10/2015) * CBC W AUTO DIFFERENTIAL(Performed 08/10/2015) * PHENYTOIN LEVEL TOTAL(Performed 08/09/2015) * COMPREHENSIVE METABOLIC PANEL(Performed 08/09/2015) * PHOSPHORUS BLOOD(Performed 08/09/2015) * MAGNESIUM BLOOD(Performed 08/09/2015) * CBC W AUTO DIFFERENTIAL(Performed 08/09/2015) * CBC W AUTO DIFFERENTIAL(Performed 08/09/2015) * GLUCOSE ACCUCHECK(Performed 08/09/2015) * EKG 12-LEAD(Performed 08/08/2015) * CT CERVICAL SPINE WO CONTRAST(Performed 05/07/2015) * CT HEAD WO CONTRAST(Performed 05/07/2015) * GLUCOSE - POINT OF CARE (AMB) SLU(Performed 05/07/2015) * GLUCOSE - POINT OF CARE (AMB) SLU(Performed 05/07/2015) * PHENYTOIN LEVEL TOTAL(Performed 05/07/2015) * ALCOHOL ETHYL BLOOD(Performed 05/07/2015) * DRUG ABUSE PANEL 10-20+ETHANOL URINE NO CONFIRM(Performed 05/07/2015) * BASIC METABOLIC PANEL (CALCIUM TOTAL)(Performed 05/07/2015) * CBC W AUTO DIFFERENTIAL(Performed 05/07/2015) * URINALYSIS REFLEX TO MICROSCOPIC NO CULTURE(Performed 05/07/2015) * GLUCOSE ACCUCHECK(Performed 05/07/2015) * PHOSPHORUS BLOOD(Performed 04/14/2015) * MAGNESIUM BLOOD(Performed 04/14/2015) * BASIC METABOLIC PANEL (CALCIUM TOTAL)(Performed 04/14/2015) * CBC W AUTO DIFFERENTIAL(Performed 04/14/2015) * CBC W AUTO DIFFERENTIAL(Performed 04/14/2015) * MRI ANGIO BRAIN ARTERIAL WO CONT(Performed 04/13/2015) * MRI BRAIN WO CONTRAST(Performed 04/13/2015) * MRI ANGIO NECK W CONTRAST(Performed 04/13/2015) * PHOSPHORUS BLOOD(Performed 04/12/2015) * MAGNESIUM BLOOD(Performed 04/12/2015) * BASIC METABOLIC PANEL (CALCIUM TOTAL)(Performed 04/12/2015) * CBC W AUTO DIFFERENTIAL(Performed 04/12/2015) * CBC W AUTO DIFFERENTIAL(Performed 04/12/2015) * PHOSPHORUS BLOOD(Performed 04/12/2015) * MAGNESIUM BLOOD(Performed 04/12/2015) * BASIC METABOLIC PANEL (CALCIUM TOTAL)(Performed 04/12/2015) * CBC W AUTO DIFFERENTIAL(Performed 04/12/2015) * CBC W AUTO DIFFERENTIAL(Performed 04/12/2015) * DRUG ABUSE PANEL 10-20+ETHANOL URINE NO CONFIRM(Performed 04/11/2015) * URINALYSIS REFLEX TO MICROSCOPIC NO CULTURE(Performed 04/11/2015) * XR CHEST 1VW PORTABLE(Performed 04/11/2015) * CT HEAD WO CONTRAST(Performed 04/11/2015) * PHENYTOIN LEVEL TOTAL(Performed 04/11/2015) * TROPONIN I(Performed 04/11/2015) * ALCOHOL ETHYL BLOOD(Performed 04/11/2015) * COMPREHENSIVE METABOLIC PANEL(Performed 04/11/2015) * LACTIC ACID BLOOD(Performed 04/11/2015) * CBC W AUTO DIFFERENTIAL(Performed 04/11/2015) * PT-INR [facility](Performed 04/11/2015) * BLOOD GASES ARTERIAL(Performed 04/11/2015) * HEMOGLOBIN A1C(Performed 04/11/2015) * LIPID PROFILE(Performed 04/11/2015) * CBC W AUTO DIFFERENTIAL(Performed 04/11/2015) * ECHO COMPLETE(Performed 04/11/2015) * EKG 12-LEAD(Performed 04/11/2015) Results * PT-INR [facility] (06/08/2024 4:11 AM [employer]) Only the most recent of17 resultswithin the time period is included. PT 14.1 12.1 - 14.8 Seconds 06/08/2024 4:46 AM [employer]IST [facility] INR 1.1 See Comment 06/08/2024 4:46 AM [facility] Comment:The suggested therap eutic range for standard coumadin (warfarin) therapy is an INR of 2.0-3.0. For high-risk patients (Mechanical Mitral Valve Prosthesis, etc.), the suggested prophylactic therapeutic range is an INR of 2.5-3.5. Blood BLOOD SPECIMEN / Unknown Venipuncture / Unknown 06/08/2024 4:11 AM [employer] 06/08/2024 4:18 AM [employer] Elizabeth Hernandez MD LAB - COAGULATION OR DERABLES 00 [address] [address] [address], [facility] [phone] * (ABNORMAL) CBC W/O DIFFERENTIAL (06/08/2024 4:11 AM [facility]) Only the most recent of41 resultswithin the time period is included. WBC 7.7 4.0 - 10.7 x10E9/L 06/08/2024 4:25 AM [facility] RBC Count 4.07(L) 4.30 - 5.80 x10E12/L 06/08/2024 4:25 AM [facility] Hemoglobin 13.4 13.3 - 17.5 g/dL 06/08/2024 4:25 AM [facility] Hematocrit 38.8 38.7 - 51.1 % 06/08/2024 4:25 AM [facility] MCV 95.3 80.0 - 98.0 fL 06/08/2024 4:25 AM [facility] MCH 32.9 26.7 - 33.6 pg 06/08/2024 4:25 AM [facility] MCHC 34.5 31.7 - 36.3 g/dL 06/08/2024 4:25 AM [facility] RDW-CV 13.2 11.3 - 14.8 % 06/08/2024 4:25 AM [facility] Platelet Count 166 150 - 420 x10E9/L 06/08/2024 4:25 AM [facility] MPV 12.5(H) 7.8 - 11.4 fL 06/08/2024 4:25 AM [facility] Blood BLOOD SPECIMEN / Unknown Venipuncture / Unknown 06/08/2024 4:11 AM MEDICAL CLAIMS SPECIALIST 06/08/2024 4:18 AM MEDICAL CLAIMS SPECIALIST Lilliam Isaacs [employer]IL PLANT OPERATOR-LEAD PY[employer]ON DEVELOPER LAB - HEMATOLOGY ORDERABLES [facility] [address] [place] [address], [facility] [phone] * (ABNORMAL) BASIC METABOLIC PANEL (CALCIUM TOTAL) (06/08/2024 4:11 AM MEDICAL CLAIMS SPECIALIST) Only the most recent of146 resultswithin the time period is included. BUN 14 7 - 26 mg/dL 06/08/2024 4:58 AM [facility] Creatinine 0.57(L) 0.71 - 1.16 mg/dL 06/08/2024 4:58 AM [facility] Sodium 140 136 - 145 mmol/L 06/08/2024 4:58 AM [facility] Potassium 3.9 3.5 - 4.5 mmol/L 06/08/2024 4:58 AM [facility] Chloride 108(H) 98 - 107 mmol/L 06/08/2024 4:58 AM [facility] CO2 27 22 - 29 mmol/L 06/08/2024 4:58 AM [facility] Glucose 105(H) 70 - 99 mg/dL 06/08/2024 4:58 AM [facility] Calcium 9.3 8.4 - 10.2 mg/dL 06/08/2024 4:58 AM [facility] Anion Gap 5(L) 6 - 16 06/08/2024 4:58 AM [facility] BUN/Creatinine Ratio 25(H) 7 - 23 06/08/2024 4:58 AM [facility] Osmolality Calculated 291 275 - 295 mOsm/kg 06/08/2024 4:58 AM [facility] eGFR by CKD-EPI >90 >=90 mL/min/1.7 3 m2 06/08/2024 4:58 AM [facility] Blood BLOOD SPECIMEN / Unknown Venipuncture / Unknown 06/08/2024 4:11 AM MEDICAL CLAIMS SPECIALIST 06/08/2024 4:18 AM MEDICAL CLAIMS SPECIALIST [employer] LAB - CHEMISTRY ORDERABLES Performing Organization Address City/[facility]/ZIP Co de Phone Number [address] [address], [facility] [phone] * PHOSPHORUS BLOOD (06/08/2024 4:11 AM MEDICAL CLAIMS SPECIALIST) Only the most recent of154 resultswithin the time period is included. Phosphorus 3.0 2.8 - 5.1 mg/dL 06/08/2024 4:49 AM MEDICAL CLAIMS SPECIALIST [facility] Blood BLOOD SPECIMEN / Unknown Venipuncture / Unknown 06/08/2024 4:11 AM MEDICAL CLAIMS SPECIALIST 06/08/2024 4:18 AM MEDICAL CLAIMS SPECIALIST [employer] LAB - CHEMISTRY ORDERABLES Performing Organization Address [facility] Co de Phone Number [address] [address], [facility] [phone] * MAGNESIUM BLOOD (06/08/2024 4:11 AM MEDICAL CLAIMS SPECIALIST) Only the most recent of193 resultswithin the time period is included. Magnesium 1.9 1.6 - 2.6 mg/dL 06/08/2024 4:58 AM MEDICAL CLAIMS SPECIALIST [facility] Blood BLOOD SPECIMEN / Unknown Venipuncture / Unknown 06/08/2024 4:11 AM MEDICAL CLAIMS SPECIALIST 06/08/2024 4:18 AM MEDICAL CLAIMS SPECIALIST [employer] LAB - CHEMISTRY ORDERABLES Performing Organization Address [facility]/ZIP Co de Phone Number [address] [address], [facility] [phone] * (ABNORMAL) LIPID PROFILE (06/08/2024 4:11 AM MEDICAL CLAIMS SPECIALIST) Only the most recent of2 resultswithin the time period is included. Cholesterol Total 136 <200 mg/dL 06/08/2024 4:49 AM [facility] HDL 35(L) >40 mg/dL 06/08/2024 4:49 AM [facility] Comment: ATP III Classification of HDL Cholesterol: ? <40 mg/dL: ??Considered a major risk factor. ? >60 mg/dL: ??Considered a negative risk factor. ? LDL Calculated 88 <100 mg/dL 06/08/2024 4:49 AM [facility] Comment: ATP III Classification of LDL Cholesterol: ?<100 mg/dL: ??Optimal ? 100 - 129 mg/dL: ??Near Optimal/Above Optimal ? 130 - 159 mg/dL: ??Borderline High ? 160 - 189 mg/dL: ??High ?>190 mg/dL: ??Very High ? Triglycerides 65 <150 mg/dL 06/08/2024 4:49 AM [facility] Comment: ATP III Classification of Triglycerides: ?<150 mg/dL: ??Normal ? 150 - 199 mg/dL: ??Borderline High ? 200 - 400 mg/dL: ??High ?>500 mg/dL: ??Very High Blood BLOOD SPECIMEN / Unknown Venipuncture / Unknown 06/08/2024 4:11 AM MEDICAL CLAIMS SPECIALIST 06/08/2024 4:18 AM MEDICAL CLAIMS SPECIALIST Lilliam Isaacs OIL PLANT OPERATOR-LEAD [employer] DEVELOPER LAB - CHEMISTRY ORDERABLES [facility] [address] [place] [phone], [facility] [phone] * (ABNORMAL) URINALYSIS REFLEX MICROSCOPIC REFLEX CULTURE (06/07/2024 10:24 PM MEDICAL CLAIMS SPECIALIST) Only the most recent of7 resultswithin the time period is included. Color UA Yellow Straw, Yellow 06/07/2024 11:05 PM [facility] Clarity UA Clear Clear 06/07/2024 11:05 PM [facility] Specific [place] UA >1.060(H) 1.005 - 1.030 06/07/2024 11:05 PM [facility] pH UA 7.0 5.0 - 8.0 pH 06/07/2024 11:05 PM [facility] Protein UA Negative Negative 06/07/2024 11:05 PM [facility] Glucose UA Negative Negative 06/07/2024 11:05 PM [facility] Ketone UA 1+(A) Negative 06/07/2024 11:05 PM [facility] Bilirubin UA Negative Negative 06/07/2024 11:05 PM [facility] Blood UA Negative Negative 06/07/2024 11:05 PM [facility] Nitrite UA Negative Negative 06/07/2024 11:05 PM [facility] Leukocyte Esterase Negative Negative 06/07/2024 11:05 PM [facility] Urobilinogen UA 2.0(A) Negative mg/dL 06/07/2024 11:05 PM [facility] Comment UA Microscopic not indicated. 06/07/2024 11:05 PM [facility] Urine URINE SPECIMEN OBTAINED BY CLEAN CATCH PROCEDURE / Unknown Collection / Unknown 06/07/2024 10:24 PM MEDICAL CLAIMS SPECIALIST 06/07/2024 10:27 PM [facility] - 06/07/2024 11:05 PM [facility] Elizabeth Hernandez MD LAB - URINALYSIS ORD ERABLES [facility] [address] [place] [phone] [phone] * (ABNORMAL) CBC W AUTO DIFFERENTIAL (06/07/2024 8:01 PM MEDICAL CLAIMS SPECIALIST) Only the most recent of219 resultswithin the time period is included. WBC 9.2 4.0 - 10.7 x10E9/L 06/07/2024 8:17 PM [facility] RBC Count 4.45 4.30 - 5.80 x10E12/L 06/07/2024 8:17 PM [facility] Hemoglobin 14.4 13.3 - 17.5 g/dL 06/07/2024 8:17 PM [facility] Hematocrit 42.4 38.7 - 51.1 % 06/07/2024 8:17 PM [facility] MCV 95.3 80.0 - 98.0 fL 06/07/2024 8:17 PM [facility] MCH 32.4 26.7 - 33.6 pg 06/07/2024 8:17 PM [facility] MCHC 34.0 31.7 - 36.3 g/dL 06/07/2024 8:17 PM [facility] RDW-CV 13.5 11.3 - 14.8 % 06/07/2024 8:17 PM [facility] Platelet Count 184 150 - 420 x10E9/L 06/07/2024 8:17 PM [facility] MPV 13.0(H) 7.8 - 11.4 fL 06/07/2024 8:17 PM [facility] Neutrophil % 69.2 41.0 - 74.0 % 06/07/2024 8:17 PM [facility] Lymphocyte % 20.6 17.0 - 47.0 % 06/07/2024 8:17 PM [facility] Monocyte % 7.6 3.0 - 11.0 % 06/07/2024 8:17 PM [facility] Eosinophil % 2.2 0.0 - 7.0 % 06/07/2024 8:17 PM [facility] Basophil % 0.2 0.0 - 1.6 % 06/07/2024 8:17 PM [facility] Immature Granulocytes % 0.2 0.0 - 1.0 % 06/07/2024 8:17 PM [facility] Neutrophil Absolute 6.40 1.60 - 7.50 x10E9/L 06/07/2024 8:17 PM [facility] Lymphocyte Absolute 1.90 1.00 - 4.40 x10E9/L 06/07/2024 8:17 PM [facility] Monocyte Absolute 0.70 0.15 - 1.00 x10E9/L 06/07/2024 8:17 PM [facility] Eosinophil Absolute 0.20 0.00 - 0.60 x10E9/L 06/07/2024 8:17 PM [facility] Basophil Absolute 0.02 0.00 - 0.13 x10E9/L 06/07/2024 8:17 PM [facility] Blood BLOOD SPECIMEN / Unknown Venipuncture / Unknown 06/07/2024 8:01 PM MEDICAL CLAIMS SPECIALIST 06/07/2024 8:07 PM MEDICAL CLAIMS SPECIALIST Elizabeth Hernandez MD LAB - HEMATOLOGY ORD ERABLES [facility] [address] [place] [address], [facility] [phone] * (ABNORMAL) COMPREHENSIVE METABOLIC PANEL (06/07/2024 8:01 PM MEDICAL CLAIMS SPECIALIST) Only the most recent of84 resultswithin the time period is included. BUN 15 7 - 26 mg/dL 06/07/2024 8:36 PM [facility] Creatinine 0.62(L) 0.71 - 1.16 mg/dL 06/07/2024 8:36 PM [facility] Sodium 140 136 - 145 mmol/L 06/07/2024 8:36 PM [facility] Potassium 4.8(H) 3.5 - 4.5 mmol/L 06/07/2024 8:36 PM [facility] Chloride 106 98 - 107 mmol/L 06/07/2024 8:36 PM [facility] CO2 26 22 - 29 mmol/L 06/07/2024 8:36 PM [facility] Glucose 108(H) 70 - 99 mg/dL 06/07/2024 8:36 PM [facility] Calcium 9.5 8.4 - 10.2 mg/dL 06/07/2024 8:36 PM [facility] Protein Total 7.5 6.0 - 8.3 g/dL 06/07/2024 8:36 PM [facility] Albumin 3.7 3.4 - 5.0 g/dL 06/07/2024 8:36 PM [facility] Bilirubin Total 0.6 0.2 - 1.2 mg/dL 06/07/2024 8:36 PM [facility] Alkaline Phosphatase 90 40 - 150 U/L 06/07/2024 8:36 PM [facility] ALT 19 5 - 55 U/L 06/07/2024 8:36 PM [facility] AST 27 5 - 34 U/L 06/07/2024 8:36 PM [facility] Anion Gap 8 6 - 16 06/07/2024 8:36 PM [facility] BUN/Creatinine Ratio 24(H) 7 - 23 06/07/2024 8:36 PM [facility] Osmolality Calculated 291 275 - 295 mOsm/kg 06/07/2024 8:36 PM [facility] Albumin/Globulin Ratio 1.0(L) 1.1 - 2.3 06/07/2024 8:36 PM [facility] eGFR by CKD-EPI >90 >=90 mL/min/1.7 3 m2 06/07/2024 8:36 PM [facility] Blood BLOOD SPECIMEN / Unknown Venipuncture / Unknown 06/07/2024 8:01 PM MEDICAL CLAIMS SPECIALIST 06/07/2024 8:07 PM MEDICAL CLAIMS SPECIALIST Elizabeth Hernandez MD LAB - CHEMISTRY [facility] Organization Address City/State/ZIP Co de Phone Number [facility] [address] [place] [address], [facility] [phone] * LIPASE BLOOD (06/07/2024 8:01 PM MEDICAL CLAIMS SPECIALIST) Only the most recent of4 resultswithin the time period is included. Lipase 14 8 - 78 U/L 06/07/2024 8:36 PM [facility] Blood BLOOD SPECIMEN / Unknown Venipuncture / Unknown 06/07/2024 8:01 PM MEDICAL CLAIMS SPECIALIST 06/07/2024 8:07 PM MEDICAL CLAIMS SPECIALIST Narrative [facility] - 06/07/2024 8:36 PM MEDICAL CLAIMS SPECIALIST Lipase results from the [employer] Alinity analyzer may not be comparable with other methodologies. Elizabeth Hernandez MD LAB - CHEMISTRY [facility] Organization Address City/State/ZIP Co de Phone Number [facility] [address] [place] [address], [facility] [phone] * CT Chest Abdomen Pelvis W Cont (05/15/2024 2:44 PM MEDICAL CLAIMS SPECIALIST) Only the most recent of4 resultswithin the time period is included. Anatomical Region Laterality Modality Chest, Abdomen, Pelvis Computed Tomography 05/15/2024 3:06 PM MEDICAL CLAIMS SPECIALIST Impressions 05/15/2024 4:01 PM MEDICAL CLAIMS SPECIALIST Impression 1. Debris noted in the right mainstem bronchus and the bilateral lower lobe peribronchial wall thickening suggestive of aspiration. 2. Centrilobular emphysematous disease of the lungs. 3. Bilateral nonobstructive nephrolithiasis. 4. Colonic diverticulosis without evidence of diverticulitis. 5. Prostatomegaly. Recommend correlation with PSA. Report dictated by Flavio tSover MD(residential assistant). I, John Graham MD have personally reviewed and interpreted this examination/study. > Interpreting Provider: John Graham MD on 05/15/2024 4:01 PM Narrative 05/15/2024 4:01 PM MEDICAL CLAIMS SPECIALIST PROCEDURE: ??CT CHEST ABDOMEN PELVIS W CONT, DATE/TIME OF EXAM: ??05/15/2024 2:44 PM, LOCATION ??[facility] INDICATION: R10.84: Abdominal pain, generalized ADDITIONAL CLINICAL [...] DATE/TIME OF EXAM:05/15/2024 2:44 PM, LOCATION [facility] INDICATION: R10.84: Abdominal pain, generalized ADDITIONAL CLINICAL [...] with PSA. Report dictated by Flavio Stover MD(residential assistant). IJohn MD have personally reviewed and interpreted this examination/study. > Interpreting Provider: John Graham MD on 05/15/2024 4:01 PM Caio Elder MD CT ORDERABLES * CT CERVICAL SPINE WO CONTRAST (04/30/2024 11:05 PM MEDICAL CLAIMS SPECIALIST) Only the most recent of6 resultswithin the time period is included. Anatomical Region Laterality Modality Spine Computed Tomogra phy 04/30/2024 11:1 6 PM MEDICAL CLAIMS SPECIALIST Impressions 04/30/2024 11:34 PM MEDICAL CLAIMS SPECIALIST IMPRESSION: 1. No acute intracranial hemorrhage or [...] cervical spine. > Interpreting Provider: Jose Alejandro Willson MD on 04/30/2024 11:34 PM Narrative 04/30/2024 11:34 PM MEDICAL CLAIMS SPECIALIST PROCEDURE: ??CT HEAD WO CONTRAST, CT CERVICAL [...] visible than on the previous examination. The cooper-white matter differentiation otherwise appears normal. The generalized [...] apices are clear. Procedure Note Jose Alejandro Willson MD - 04/30/2024 PROCEDURE: CT HEAD WO [...] conspicuously visiblethan on the previous examination. The cooper-white matter differentiation otherwise appears normal. The generalized [...] cervical spine. > Interpreting Provider: Jose Alejandro Willson MD on 04/30/2024 11:34 PM Elmo Medeiros MD CT ORDERABLES * CT HEAD WO CONTRAST (04/30/2024 11:05 PM MEDICAL CLAIMS SPECIALIST) Only the most recent of22 resultswithin the time period is included. Anatomical Region Laterality Modality Head Computed Tomogra phy 04/30/2024 11:1 6 PM MEDICAL CLAIMS SPECIALIST Impressions 04/30/2024 11:34 PM MEDICAL CLAIMS SPECIALIST IMPRESSION: 1. No acute intracranial hemorrhage or [...] cervical spine. > Interpreting Provider: Jose Alejandro Willson MD on 04/30/2024 11:34 PM Narrative 04/30/2024 11:34 PM MEDICAL CLAIMS SPECIALIST PROCEDURE: ??CT HEAD WO CONTRAST, CT CERVICAL [...] visible than on the previous examination. The cooper-white matter differentiation otherwise appears normal. The generalized [...] apices are clear. Procedure Note Jose Alejandro Willson MD - 04/30/2024 PROCEDURE: CT HEAD WO [...] conspicuously visiblethan on the previous examination. The cooper-white matter differentiation otherwise appears normal. The generalized [...] cervical spine. > Interpreting Provider: Jose Alejandro Willson MD on 04/30/2024 11:34 PM Elmo Medeiros MD CT ORDERABLES * XR Chest 1Vw Portable (04/30/2024 10:13 PM MEDICAL CLAIMS SPECIALIST) Only the most recent of44 resultswithin the time period is included. Anatomical Region Laterality Modality Chest Digital Radiogra phy 04/30/2024 10:1 8 PM MEDICAL CLAIMS SPECIALIST Narrative 05/01/2024 10:01 AM MEDICAL CLAIMS SPECIALIST PROCEDURE: ??XR CHEST 1VW PORTABLE, DATE/TIME OF EXAM: ??04/30/2024 10:13 PM, LOCATION ??[facility] INDICATION: W18.30XA: Ground-level fall ADDITIONAL CLINICAL INFORMATION: Ordering Provider Reason For Exam: ??ptx Technologist Note: Additional: COMPARISON: Chest radiograph from 06/25/2023 FINDINGS/IMPRESSION: *Tracheostomy in place. Right lower lung atelectasis. No pleural effusion or pneumothorax. The cardiomediastinal silhouette is normal. The visible bony thorax is intact. > Dictated by Virgil Clark MD I, Charles Garsia MD have personally reviewed and interpreted this examination/study. > Interpreting Provider: Chrales Garsia MD on 05/01/2024 10:01 AM Procedure Note Charles Garsia MD - 05/01/2024 PROCEDURE: XR CHEST 1VW PORTABLE, DATE/TIME OF EXAM: 04/30/2024 10:13PM, LOCATION [facility] INDICATION: W18.30XA: Ground-level fall ADDITIONAL CLINICAL INFORMATION: Ordering Provider Reason For Exam: ptx Technologist Note: Additional: COMPARISON: Chest radiograph from 06/25/2023 FINDINGS/IMPRESSION: *Tracheostomy in place. Right lower lung atelectasis. No pleural effusion or pneumothorax. The cardiomediastinal silhouette is normal. The visible bony thorax is intact. > Dictated by Virgil Clark MD I, Charles Garsia MD have personally reviewed and interpreted this examination/study. > Interpreting Provider: Charles Garsia MD on 05/01/2024 10:01 AM Elmo Medeiros MD DIAGNOSTIC ADAN GING ORDERABLES * XR Abdomen Kub (04/21/2024 5:41 PM MEDICAL CLAIMS SPECIALIST) Only the most recent of4 resultswithin the time period is included. Anatomical Region Laterality Modality Abdomen Digital Radiogra phy 04/21/2024 5:50 PM MEDICAL CLAIMS SPECIALIST Impressions 04/21/2024 6:02 PM MEDICAL CLAIMS SPECIALIST IMPRESSION: 1.Nonobstructive bowel gas pattern. 2.G-tube in place. No extraluminal extravasation of contrast Report dictated by Virgil Clark MD I, Nj Escobar MD have personally reviewed and interpreted this examination/study. > Interpreting Provider: Nj Escobar MD on 04/21/2024 6:02 PM Narrative 04/21/2024 6:02 PM MEDICAL CLAIMS SPECIALIST PROCEDURE: ??XR ABDOMEN KUB, DATE/TIME OF EXAM: ??04/21/2024 5:41 PM, LOCATION ??[facility] INDICATION: Z43.1: Attention to G-tube (HCC) ADDITIONAL [...] OF EXAM: 04/21/2024 5:41 PM, LOCATION [facility] INDICATION: Z43.1: Attention to G-tube (HCC) ADDITIONAL [...] Rosario MD DIAGNOSTIC IMAG ING ORDERABLES * (ABNORMAL) GLUCOSE - POINT OF CARE (02/20/2024 5:02 PM CDT) Only the most recent of446 resultswithin the time period is included. [facility] Glucose WB/POC 129(H) 70 - 115 mg/dL 02/20/2024 6:04 PM CDT [facility] Specimen Type Arterial 02/20/2024 6:04 PM CDT [facility] Blood BLOOD SPECIMEN / Unknown 02/20/2024 5:02 PM CDT 02/20/2024 6:04 PM CDT Leatha Vinson MD LAB - POINT OF CARE ORDERABLES [facility] [address] [place] [address], [facility] [phone] * EKG 12-LEAD (02/19/2024 5:27 PM CDT) Only the most recent of33 resultswithin the time period is included. [facility] Ventricular Rate 93 BPM [facility] Atrial Rate 93 BPM [facility] P-R Interval 148 ms [facility] QRS Duration ms 74 ms [facility] Q-T Interval ms 366 ms [facility] QTC Calculation (Bezet) 455 ms [facility] Calculated P [place] 66 degrees [facility] MUSE Calculated R [place] -3 degrees [facility] MUSE Calculated T [place] 83 degrees [facility] Interpretation EKG NORMAL SINUS RHYTHM NONSPECIFIC T WAVE ABNORMALITY ABNORMAL ECG WHEN COMPARED WITH ECG OF 09-JUN-2023 11:50, CRITERIA FOR SEPTAL INFARCT ARE NO LONGER PRESENT Confirmed by SHARDA LANDIS MD ([id number]) on 02/19/2024 11:22:40 PM [facility] 02/19/2024 5:27 PM CDT 02/19/2024 11:22 PM CDT Brian Lawrence MD ECG ORDERABLES Performing Organization Address City/[facility]/ZIP Co de Phone Number [facility] * (ABNORMAL) LACTIC ACID BLOOD (02/19/2024 2:00 AM CDT) Only the most recent of11 resultswithin the time period is included. Pathologist [facility] Lactic Acid-Stat 2.5(H) <=2.0 mmol/L 02/19/2024 2:41 AM CDT [facility] Blood BLOOD SPECIMEN / Unknown Lab Venipuncture / Unknown 02/19/2024 2:00 AM CDT 02/19/2024 2:20 AM CDT Brian Lawrence MD LAB - CHEMISTRY ORDE GATITO [facility] [address] [place] [address], [facility] [phone] * CK BLOOD (02/19/2024 2:00 AM CDT) Only the most recent of6 resultswithin the time period is included. Pathologist [facility] CK Total 164 30 - 200 U/L 02/19/2024 3:08 AM CDT [facility] Blood BLOOD SPECIMEN / Unknown 02/19/2024 2:00 AM CDT 02/19/2024 2:20 AM CDT Brian Lawrence MD LAB - CHEMISTRY [facility]SHAL MEDEROS [address] [address], [facility] [phone] * (ABNORMAL) LACOSAMIDE (02/18/2024 3:41 AM CDT) Only the most recent of13 resultswithin the time period is included. Lacosamide 14.3(H) 1.0 - 10.0 ug/mL 02/21/2024 6:09 PM CDT [facility] [employer] ([facility]) Comment: INTERPRETIVE INFORMATION: Lacosamide, Serum or Plasma Therapeutic Range: 1.0 - 10.0 ug/mL Toxic: Greater than or equal to 20 ug/mL Lacosamide is an anticonvulsant drug indicated for adjunctive therapy for partial-onset seizures. The therapeutic range is based on serum, predose (trough) draw collection at steady-state concentration. Adverse effects may include dizziness, fatigue, nausea, vomiting, blurred vision, and tremor. This test was developed and its performance characteristics determined by [employer]. It has not been cleared or approved by the [place] Food and Drug Administration. This test was performed in a CLIA-certified laboratory and is intended for clinical purposes. Performed By: [employer] [address] [place] [address] Agriculture Instructor: Power Milian MD, PhD CLIA Number: [id number] Blood BLOOD SPECIMEN / Unknown Lab Venipuncture / Unknown 02/18/2024 3:41 AM CDT 02/18/2024 3:58 AM CDT Brian Lawrence MD LAB - CHEMISTRY MARSHAL MEDEROS [facility] [employer] [facility]) [address] [place] [address] * (ABNORMAL) LEVETIRACETAM LEVEL (02/18/2024 3:41 AM CDT) Only the most recent of31 resultswithin the time period is included. Levetiracetam 75(H) 10 - 40 ug/mL 02/20/2024 2:43 AM CDT [facility] ([facility]) Comment: INTERPRETIVE INFORMATION: Keppra (Levetiracetam) Therapeutic Range: ??10-40 ug/mL ?Toxic: ??Not well Established Pharmacokinetics of levetiracetam are affected by renal function. Adverse effects may include somnolence, weakness, headache and vomiting. This levetiracetam (Keppra) immunoassay uses the [employer] reagents, which has known cross-reactivity with the drug brivaracetam (Briviact) and may report inaccurate results. Patients transitioning from levetiracetam to brivaracetam or those who are using both medications should not monitor drug concentrations with the [employer] assay. These patients should be monitored using a validated chromatographic methodology that distinguishes between drugs to determine drug concentrations. Performed By: [employer] [address] [id number] Agriculture Instructor: Power Milian MD, PhD CLIA Number: [id number] Blood BLOOD SPECIMEN / Unknown Lab Venipuncture / Unknown 02/18/2024 3:41 AM CDT 02/18/2024 3:58 AM CDT Brian Lawrence MD LAB - THERAPEUTIC DR DIAZ MONITORING ORDERABLES [facility]) [address] [place] [address], [facility] * XR NECK SOFT TISSUE (11/18/2023 2:27 AM CDT) Anatomical Region Laterality Modality Head Radiographic Adan ging 11/18/2023 4:26 AM CDT Impressions 11/18/2023 8:13 AM CDT IMPRESSION: Patent airway without prevertebral soft tissue swelling or definite epiglottic enlargement. No definite tracheostomy tube displacement identified.. Report dictated by Herminio Ivy MD (residential assistant). I, Edilberto Lynn MD have personally reviewed and interpreted this examination/study. > Interpreting Provider: Edilberto Lynn MD on 11/18/2023 8:13 AM Narrative 11/18/2023 8:13 AM CDT PROCEDURE: ??XR NECK SOFT TISSUE, DATE/TIME OF EXAM: ??11/18/2023 2:27 AM, LOCATION ??[facility] INDICATION: J95.00: Tracheostomy complication, unspecified complication type (HCC) ADDITIONAL CLINICAL INFORMATION: Ordering Provider Reason For Exam: Technologist Note: Additional: COMPARISON: None. FINDINGS: AP and a rotated lateral views of the soft tissues neck were obtained. Tracheostomy tube terminates just below the thoracic inlet. There is no obvious prevertebral soft tissue swelling. The epiglottis did not appear to be abnormally enlarged. The visualized airway appears patent. There is multilevel moderate to severe degenerative cervical disc disease. No gross acute fracture or gross cervical compression deformity is identified. There does appear to be considerable degenerative disc disease at C5-C6 and C6-C7. Procedure Note Edilberto Lynn MD - 11/18/2023 PROCEDURE: XR NECK SOFT TISSUE, DATE/TIME OF EXAM: 11/18/2023 2:27 AM, LOCATION [facility] INDICATION: J95.00: Tracheostomy complication, unspecified complication type (HCC) ADDITIONAL CLINICAL INFORMATION: Ordering Provider Reason For Exam: Technologist Note: Additional: COMPARISON: None. FINDINGS: AP and a rotated lateral views of the soft tissues neck were obtained. Tracheostomy tube terminates just below the thoracic inlet. There is no obvious prevertebral soft tissue swelling. The epiglottisdid not appear to be abnormally enlarged. The visualized airway appearspatent. There is multilevel moderate to severe degenerative cervical discdisease. No gross acute fracture or gross cervical compression deformity is identified. There does appear to be considerable degenerative discdisease at C5-C6 and C6-C7. IMPRESSION: Patent airway without prevertebral soft tissue swelling or definite epiglottic enlargement. No definite tracheostomy tube displacement identified.. Report dictated by Herminio Ivy MD (residential assistant). I, Edilberto Lynn MD have personally reviewed and interpreted this examination/study. > Interpreting Provider: Edilberto Lynn MD on 11/18/2023 8:13 AM Yash Webber PA-C DIAGNOSTIC IMAGING ORDERABLES * VAS LEFT VENOUS DUPLEX UE (09/14/2023 11:25 AM CDT) Anatomical Region Laterality Modality Upper Extremity Intravascular Ul trasound 09/14/2023 10:2 3 AM CDT Narrative Procedure Note Kaylee Wills MD - 09/14/2023 Riky Brewer MD VASCULAR LAB ORDERAB LES * PTT [facility] (09/14/2023 6:18 AM CDT) Only the most recent of5 resultswithin the time period is included. APTT 31.6 23.0 - 38.4 Seconds 09/14/2023 6:48 AM CDT [facility] Comment:Suggested therapeuti c range for full dose I.V. unfractionated heparin therapy for venous thromboembolism is 71 to 109 seconds. Blood BLOOD SPECIMEN / Unknown Venipuncture / Unknown 09/14/2023 6:18 AM CDT 09/14/2023 6:24 AM CDT Walt Linder MD LAB - COAGULATION OR DERABLES [facility] [address] [place] [phone], [employer] [phone] * TYPE + SCREEN PANEL (09/14/2023 6:18 AM CDT) Only the most recent of7 resultswithin the time period is included. Antibody Screen NEG 7:09 AM CDT [facility] ABO Rh O POS 09/14/2023 7:09 AM CDT [facility] Blood Bank BLOOD SPECIMEN / Unknown Venipuncture / Unknown 09/14/2023 6:18 AM CDT 09/14/2023 6:28 AM CDT Walt Linder MD LAB - BLOOD BANK ORD ERABLES [facility] [address] [place] [phone] [phone] * IR PERC G TO GJ TUBE EXCHANGE (09/09/2023 4:20 PM CDT) Only the most recent of3 resultswithin the time period is included. Anatomical Region Laterality Modality Abdomen X-Ray Angiograph y 09/15/2023 3:57 PM CDT Impressions 09/15/2023 4:03 PM CDT Impression: Successful conversion of the existing makeshift 18 British JELLY Alanis gastrostomy catheter for a new 18-British x 45 cm balloon-retention gastrojejunostomy catheter under fluoroscopic guidance, as described above. Note: The catheter can be used now. Flush the catheter with 30 mL of water before and after each use. Recommend liquid formulation of medications. Avoid crushed pills to maintain patency. Please contact the pharmacy for better formulation if any pills need to be administered through the catheter. In case of abdominal distension or discomfort, stop feeding and call the IR service. > Interpreting Provider: Mariano Cullen MD on 09/15/2023 4:03 PM Narrative 09/15/2023 4:03 PM CDT PROCEDURE: ??IR PERC G TO GJ TUBE EXCHANGE DATE/TIME OF EXAM: ??09/09/2023 4:31 PM CLINICAL INFORMATION: None relevant/not provided if blank. Indication: E86.0: Dehydration Z93.1: Gastrostomy tube dependent (HCC) 63 year oldmalewith medical hx of CHRF, CVA, dementia, dysphagia with recurrent aspiration and gastroparesis despite g tube who previously underwent VIR image-guided G to GJ conversionlast 11/2022. [facility] after presenting with clogged GJ, OSH unable to replace GJ told he would need to go to [facility]. Box Toe Maker: Dr. Luis Cullen, attending physician. Anesthesia: None Procedure: Exchange of the existing 18 British JELLY gastrostomy catheter for a new 18 British by 45 cm balloon-retention gastrojejunostomy catheter under fluoroscopic guidance. Fluoroscopic time: 2.2 minutes (10 mg) Contrast: 10 mL of Isovue-300 Procedure in detail: The procedure, risks, and possible complications were explained to the proxy in detail, and informed consent was obtained. The patient was placed supine on the procedure table. A hydraulic tester film of abdomen was obtained, which showed unremarkable abdomen. Contrast was hand injected through the existing gastrostomy catheter and showed opacification of the gastric lumen. A 0.035 inch Glidewire was advanced into the stomach through the existing catheter which was subsequently removed over the wire. Using a 4 British Kumpe catheter, the Glidewire was advanced into the jejunum under fluoroscopic guidance. The Glidewire was exchanged for a stiffer wire. A new 18 British by 45 cm gastrojejunostomy catheter was then advanced over the wire under fluoroscopic guidance. The catheter was secured by 6 cc of sterile water balloon insufflation. Hand injection of contrast through the gastric port confirmed intraluminal position within the stomach. Hand injection of contrast through the jejunal port confirmed intraluminal position within the jejunum. Sterile dressing was applied. The patient tolerated the procedure well and was transferred to the holding area in stable condition. There were no immediate complications associated with the procedure. Procedure Note Mariano Cullen MD - 09/15/2023 PROCEDURE: IR PERC G TO GJ TUBE EXCHANGE DATE/TIME OF EXAM: 09/09/2023 4:31 PM CLINICAL INFORMATION: None relevant/not provided if blank. Indication: E86.0: Dehydration Z93.1: Gastrostomy tube dependent (HCC) 63 year oldmalewith medical hx of CHRF, CVA, dementia, dysphagia with recurrent aspiration and gastroparesis despite g tube who previously underwent VIR image-guided G to GJ conversionlast summer, 11/2022. [facility] after presenting with clogged GJ, OSH unable to replace GJ told he would need to go to [facility]. Box Toe Maker: Dr. Luis Cullen, attending physician. Anesthesia: None Procedure: Exchange of the existing 18 British JELLY gastrostomy catheterfor a new 18 British by 45 cm balloon-retention gastrojejunostomy catheterunder fluoroscopic guidance. Fluoroscopic time: 2.2 minutes (10 mg) Contrast: 10 mL of Isovue-300 Procedure in detail: The procedure, risks, and possible complications were explained to the proxy in detail, and informed consent was obtained. The patient wasplaced supine on the procedure table. A hydraulic tester film of abdomen was obtained,which showed unremarkable abdomen. Contrast was hand injected through the existing gastrostomy catheter and showed opacification of the gastric lumen. A 0.035 inch Glidewire was advanced into the stomach through the existing catheter which was subsequently removed over the wire. Using a 4 British Kumpe catheter, the Glidewire was advanced into the jejunum under fluoroscopic guidance. The Glidewire was exchanged for a stiffer wire. A new 18 British by 45 cm gastrojejunostomy catheter was then advanced over the wire under fluoroscopic guidance. The catheter was secured by 6 cc of sterile water balloon insufflation. Hand injection of contrast through the gastric port confirmedintraluminal position within the stomach. Hand injection of contrast through thejejunal port confirmed intraluminal position within the jejunum. Steriledressing was applied. The patient tolerated the procedure well [facility]. There were no immediate complicationsassociated with the procedure. Impression: Successful conversion of the existing makeshift 18 FrenchMIC Alanis gastrostomy catheter for a new 18-British x 45 cm balloon-retention gastrojejunostomy catheter under fluoroscopic guidance, as describedabove. Note: The catheter can be used now. Flush the catheter with 30 mL ofwater before and after each use. Recommend liquid formulation of medications. Avoid crushed pills to maintain patency. Please contact the pharmacy for better formulation if any pills need to be administered through the catheter. In case of abdominal distension or discomfort, stop feedingand call the IR service. > Interpreting Provider: Mariano Cullen MD on 09/15/2023 4:03 PM Gaurav Leroy PA-C IR ORDERABLES * (ABNORMAL) URINALYSIS W/MICROSCOPIC REFLEX TO CULTURE (09/06/2023 11:41 PM CDT) Only the most recent of2 resultswithin the time period is included. Color UA Yellow Straw, Yellow 09/06/2023 11:52 PM T [facility] Clarity UA Clear Clear 09/06/2023 11:52 PM T [facility] Specific [place] UA 1.009 1.005 - 1.030 09/06/2023 11:52 PM T [facility] pH UA 6.0 5.0 - 8.0 pH 09/06/2023 11:52 PM [facility] Protein UA Negative Negative 09/06/2023 11:52 PM [facility] Glucose UA Negative Negative 09/06/2023 11:52 PM [facility] Ketone UA 1+(A) Negative 09/06/2023 11:52 PM [facility] Bilirubin UA Negative Negative 09/06/2023 11:52 PM [facility] Blood UA Negative Negative 09/06/2023 11:52 PM [facility] Nitrite UA Negative Negative 09/06/2023 11:52 PM [facility] Leukocyte Esterase Negative Negative 09/06/2023 11:52 PM [facility] Urobilinogen UA 2.0(A) Negative mg/dL 09/06/2023 11:52 PM [facility] RBC UA 0-2 None Seen, 0-2, 3-5 /HPF 09/06/2023 11:52 PM [facility] WBC UA 0-5 None Seen, 0-5 /HPF 09/06/2023 11:52 PM [facility] Squamous Epithelial Cells UA 0-2 None Seen, 0-2, 3-5 /HPF 09/06/2023 11:52 PM [facility] Urine URINE SPECIMEN OBTAINED BY SINGLE CATHETERIZATION OF URINARY BLADDER / Unknown Collection / Unknown 09/06/2023 11:41 PM CDT 09/06/2023 11:45 PM CDT Narrative [facility] - 09/06/2023 11:52 PM CDT Culture Not Indicated Quan Gan MD LAB - URINALYSIS ORD ERABLES [facility] [address] [place] [address], [facility] [phone] * DE SCOPE THRU TRACHEOSTOMY (08/29/2023 7:52 AM CDT) Narrative Alden Hurtado MD - 08/29/2023 7:52 AM CDT Alden Hurtado MD ? 08/29/2023 ??7:52 AM Procedure Note Anesthesia: none Endoscopy Type: ??Flexible endoscopy y Procedure Details: ??Informed consent was obtained. ??The patient was placed in the sitting position. ??Scope was passed through the tracheostomy tube down to the level of brionna Findings: -Tracheostomy completion in the mid trachea. ??There is copious thick secretions throughout the trachea and mainstem bronchi bilaterally Disposition: The patient tolerated procedure well. Complications: None Alden Hurtado MD PROCEDURE/MINOR SURG ICAL ORDERABLES * FL SWALLOWING FUNCTION STUDY (08/26/2023 12:30 PM CDT) Only the most recent of4 resultswithin the time period is included. Anatomical Region Laterality Modality Chest Radiographic Adan ging 08/26/2023 1:51 PM CDT Impressions 08/26/2023 8:24 PM CDT IMPRESSION: Fluoroscopy was provided for a procedure performed by Speech Therapy. Please see the Speech Therapy report for interpretation. > Dictated by Sierra Lyman M.D. - Diagnostic Health And Safety Representative. IJohn MD have personally reviewed and interpreted this examination/study. > Interpreting Provider: John Stubbs MD on 08/26/2023 8:24 PM Narrative 08/26/2023 8:24 PM CDT PROCEDURE: ??FL SWALLOWING FUNCTION STUDY, DATE/TIME OF EXAM: ??08/26/2023 12:34 PM, LOCATION ??[facility] INDICATION: R13.12: Oropharyngeal dysphagia R13.10: Problems with swallowing and mastication ADDITIONAL CLINICAL INFORMATION: Ordering Provider Reason For Exam: Technologist Note: Additional: COMPARISON: None. FLUOROSCOPY TIME: ??3.87 minutes; Number of images: ??[id number] Procedure Note John Stubbs MD - 08/26/2023 PROCEDURE: FL SWALLOWING FUNCTION STUDY, DATE/TIME OF EXAM: 08/26/2023 12:34 PM, LOCATION [facility] INDICATION: R13.12: Oropharyngeal dysphagia R13.10: Problems with swallowing and mastication ADDITIONAL CLINICAL INFORMATION: Ordering Provider Reason For Exam: Technologist Note: Additional: COMPARISON: None. FLUOROSCOPY TIME: 3.87 minutes; Number of images: [id number] IMPRESSION: Fluoroscopy was provided for a procedure performed by Speech Therapy. Please see the Speech Therapy report for interpretation. > Dictated by Sierra Lyman M.D. - Diagnostic Health And Safety Representative. I, John Stubbs MD have personally reviewed and interpreted this examination/study. > Interpreting Provider: John Stubbs MD on 08/26/2023 8:24 PM Alden Hurtado MD FLUOROSCOPY ORDERABL ES * VALPROIC ACID LEVEL (06/25/2023 2:33 PM MEDICAL CLAIMS SPECIALIST) Only the most recent of47 resultswithin the time period is included. Pathologist [facility] Valproic Acid Total 51 50 - 100 ug/mL 06/25/2023 3:58 PM [facility] Blood BLOOD SPECIMEN / Unknown Lab Venipuncture / Unknown 06/25/2023 2:33 PM MEDICAL CLAIMS SPECIALIST 06/25/2023 3:19 PM MEDICAL CLAIMS SPECIALIST Leatha Vinson MD LAB - CHEMISTRY MARSHAL MEDEROS [facility] Organization Address [facility]/State/ZIP Co de Phone Number [facility] [address] [place] [phone] [phone] * (ABNORMAL) DIFFERENTIAL MANUAL (06/24/2023 11:46 AM MEDICAL CLAIMS SPECIALIST) Only the most recent of5 resultswithin the time period is included. [facility] Neutrophil % 69 41 - 74 % 06/24/2023 12:55 PM [facility] Lymphocyte % 18 17 - 47 % 06/24/2023 12:55 PM [facility] Monocyte % 12(H) 3 - 11 % 06/24/2023 12:55 PM [facility] Eosinophil % 1 0 - 7 % 06/24/2023 12:55 PM [facility] Neutrophil Absolute 13.52(H) 1.60 - 7.50 x10E9/L 06/24/2023 12:55 PM [facility] Lymphocyte Absolute 3.53 1.00 - 4.40 x10E9/L 06/24/2023 12:55 PM [facility] Monocyte Absolute 2.35(H) 0.15 - 1.00 x10E9/L 06/24/2023 12:55 PM [facility] Eosinophil Absolute 0.20 0.00 - 0.60 x10E9/L 06/24/2023 12:55 PM [facility] RBC Morphology REVIEWED 06/24/2023 12:55 PM [facility] Polychromatic Cells MODERATE(A) (none) 06/24/2023 12:55 PM [facility] Schistocytes FEW(A) (none) 06/24/2023 12:55 PM [facility] Blood BLOOD SPECIMEN / Unknown Lab Venipuncture / Unknown 06/24/2023 11:46 AM MEDICAL CLAIMS SPECIALIST 06/24/2023 11:56 AM MEDICAL CLAIMS SPECIALIST Gaurav Nogueira MD LAB - HEMATOLOGY ORDERABLES Performing Organization Address [facility]/State/ZIP Co de Phone Number [facility] [address] [place] [phone], [facility] [phone] * CLOBAZAM QUANT BLOOD (06/21/2023 5:57 AM MEDICAL CLAIMS SPECIALIST) Only the most recent of5 resultswithin the time period is included. Clobazam 264 30 - 300 ng/mL 06/26/2023 2:42 PM MEDICAL CLAIMS SPECIALIST [facility] [employer] ([facility]) Comment: INTERPRETIVE INFORMATION: Clobazam and Metabolite, Quant, ?S/P Clobazam Therapeutic Range: 30-300 ng/mL Toxic Range: Greater than 500 ng/mL N-Desmethylclobazam Therapeutic Range: 300-3000 ng/mL Toxic Range: Greater than 5000 ng/mL Clobazam is a benzodiazepine drug indicated for adjunctive treatment for seizures associated with Loving-Gastaut syndrome in patients 2 years and older. ??The therapeutic range is based on serum, pre-dose (trough) draw collection at steady-state concentration. ??The pharmacokinetics of clobazam are influenced by drug-drug interactions and by poor [id number] metabolism. ??The metabolite, N-desmethylclobazam has about 20% activity of clobazam. ??Adverse effects may include constipation, somnolence, sedation and skin rash. ??The concomitant use of clobazam with other central nervous system (BIT SANDER) depressants may increase the risk of somnolence and sedation. Test developed and characteristics determined by [employer] See Compliance Statement B: [email or web address] N-Desmethylclobazam 589 300 - 3000 ng/mL 06/26/2023 2:42 PM MEDICAL CLAIMS SPECIALIST [facility] ([facility]) Comment: Performed By: [employer] [address] [place] [address] Agriculture Instructor: Power Milian MD, PhD CLIA Number: [id number] Blood BLOOD SPECIMEN / Unknown Lab Venipuncture / Unknown 06/21/2023 5:57 AM MEDICAL CLAIMS SPECIALIST 06/21/2023 6:17 AM MEDICAL CLAIMS SPECIALIST Norma Briones MD LAB - CHEMI STRY ORDERABLES [facility] [employer] [facility]) [address] [place], [place] [address] * VANCOMYCIN LEVEL TROUGH (06/16/2023 2:51 AM MEDICAL CLAIMS SPECIALIST) Only the most recent of14 resultswithin the time period is included. Vancomycin Trough 17.7 10.0 - 20.0 ug/mL 06/16/2023 3:51 AM MEDICAL CLAIMS SPECIALIST [facility] Blood BLOOD SPECIMEN / Unknown Venipuncture / Unknown 06/16/2023 2:51 AM MEDICAL CLAIMS SPECIALIST 06/16/2023 3:00 AM MEDICAL CLAIMS SPECIALIST Narrative [facility] - 06/16/2023 3:51 AM MEDICAL CLAIMS SPECIALIST See institution protocol. Gaurav Nogueira MD LAB - CHEMISTRY ORDERABLES [facility] [address] [place] [address], [facility] [phone] * VANCOMYCIN LEVEL PEAK (06/15/2023 6:32 AM MEDICAL CLAIMS SPECIALIST) Only the most recent of3 resultswithin the time period is included. Vancomycin Peak 36.7 25.0 - 40.0 ug/mL 06/15/2023 7:12 AM MEDICAL CLAIMS SPECIALIST [facility] Blood BLOOD SPECIMEN / Unknown Lab Venipuncture / Unknown 06/15/2023 6:32 AM MEDICAL CLAIMS SPECIALIST 06/15/2023 6:49 AM MEDICAL CLAIMS SPECIALIST Narrative [facility] - 06/15/2023 7:12 AM MEDICAL CLAIMS SPECIALIST See institution protocol. Data does not support the use of vancomycin peak concentration for efficacy. Gaurav Nogueira MD LAB - CHEMISTRY ORDERABLES Performing Organization Address City/[facility]/ZIP Co de Phone Number [facility] [address] [place] [address], [facility] [phone] * CARDIAC EKG ORDER (06/13/2023 11:50 AM MEDICAL CLAIMS SPECIALIST) Only the most recent of23 resultswithin the time period is included. Narrative 06/13/2023 11:50 AM MEDICAL CLAIMS SPECIALIST Ordered by an unspecified provider. Scanned Document CARDIAC SERVICES ORD ERABLES * CULTURE BLOOD (06/13/2023 8:47 AM MEDICAL CLAIMS SPECIALIST) Only the most recent of27 resultswithin the time period is included. Culture No growth day 5 JELLY 06/18/2023 10:30 AM MEDICAL CLAIMS SPECIALIST [facility] Blood PERIPHERAL BLOOD / Unknown Lab Venipuncture / Unknown 06/13/2023 8:47 AM MEDICAL CLAIMS SPECIALIST 06/13/2023 8:50 AM MEDICAL CLAIMS SPECIALIST Gaurav Nogueira MD LAB - MICROBIOLO GY ORDERABLES Performing Organization Address City/[facility]/ZIP Co de Phone Number [facility] [address] [place] [address], [facility] [phone] * (ABNORMAL) BCID PANEL (06/11/2023 5:46 PM MEDICAL CLAIMS SPECIALIST) Only the most recent of2 resultswithin the time period is included. Staphylococcus species Detected (A) Not detected 06/13/2023 12:20 AM MEDICAL CLAIMS SPECIALIST [facility] Comment:Staphylococcus speci es (not S. aureus, S. lugdunensis, or S. epidermidis). Blood PERIPHERAL BLOOD / Unknown Venipuncture / Unknown 06/11/2023 5:46 PM MEDICAL CLAIMS SPECIALIST 06/11/2023 6:05 PM MEDICAL CLAIMS SPECIALIST Narrative [facility] - 06/13/2023 12:20 AM MEDICAL CLAIMS SPECIALIST Blood Culture ID Panel performed by [employer] multiplex PCR. Test Panel includes: Antimicrobial Resistance Genes: Mec A/C and MREJ (methicillin-resistance gene-MRSA) and van A/B (vancomycin-resistance gene). Gram Positive Bacteria: Enterococcus faecalis, Enterococcus faecium, Staphylococcus (genus), Staphylococcus aureus, Staphylococcus epidermidis, Staphylococcus lugdunensis, Streptococcus (genus), Streptococcus agalactiae (Group B), Streptococcus pneumoniae, Streptococcus pyogenes (Group A). Gaurav Nogueira MD LAB - MICROBIOLO GY ORDERABLES Performing Organization Address City/[facility] Co de Phone Number [facility] [address] [place] [address], [facility] [phone] * (ABNORMAL) MRSA DNA PCR (06/11/2023 2:42 PM MEDICAL CLAIMS SPECIALIST) Only the most recent of6 resultswithin the time period is included. MRSA DNA by PCR Detected( A) Not detected 06/11/2023 7:32 PM MEDICAL CLAIMS SPECIALIST [facility] Microbiology SPECIMEN FROM NASAL FOSSAE / Unknown Collection / Unknown 06/11/2023 2:42 PM MEDICAL CLAIMS SPECIALIST 06/11/2023 2:52 PM MEDICAL CLAIMS SPECIALIST [facility] - 06/11/2023 7:32 PM MEDICAL CLAIMS SPECIALIST 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 Gaurav Nogueira MD LAB - MICROBIOLO GY ORDERABLES Performing Organization Address City/[facility] Co de Phone Number [facility] [address] [place] [address], [facility] [phone] * (ABNORMAL) CULTURE URINE (06/11/2023 2:42 PM MEDICAL CLAIMS SPECIALIST) Only the most recent of6 resultswithin the time period is included. Culture Urine >100,000 CFU/mL Yeast(A) JELLY 06/13/2023 5:56 AM MEDICAL CLAIMS SPECIALIST [facility] Comment:No further workup pe rformed Urine URINE SPECIMEN OBTAINED BY SINGLE CATHETERIZATION OF URINARY BLADDER / Unknown Collection / Unknown 06/11/2023 2:42 PM MEDICAL CLAIMS SPECIALIST 06/11/2023 2:53 PM MEDICAL CLAIMS SPECIALIST Gaurav Nogueira MD LAB - MICROBIOLO GY ORDERABLES [facility] [address] [place] [address], [facility] [phone] * (ABNORMAL) URINALYSIS REFLEX TO MICROSCOPIC NO CULTURE (06/11/2023 2:22 PM MEDICAL CLAIMS SPECIALIST) Only the most recent of13 resultswithin the time period is included. Color UA Olivia(A) Straw, Yellow 06/11/2023 3:15 PM [facility] Clarity UA Slt Cloudy(A) Clear 06/11/2023 3:15 PM [facility] Specific [place] UA 1.030 1.005 - 1.030 06/11/2023 3:15 PM [facility] pH UA 5.0 5.0 - 8.0 pH 06/11/2023 3:15 PM [facility] Protein UA 1+(A) Negative 06/11/2023 3:15 PM [facility] Glucose UA Negative Negative 06/11/2023 3:15 PM [facility] Ketone UA Trace(A) Negative 06/11/2023 3:15 PM [facility] Bilirubin UA Negative Negative 06/11/2023 3:15 PM [facility] Blood UA Negative Negative 06/11/2023 3:15 PM [facility] Nitrite UA Negative Negative 06/11/2023 3:15 PM [facility] Leukocyte Esterase 2+(A) Negative 06/11/2023 3:15 PM [facility] Urobilinogen UA Negative Negative mg/dL 06/11/2023 3:15 PM [facility] RBC UA 6-10(A) None Seen, 0-2, 3-5 /HPF 06/11/2023 3:15 PM [facility] WBC UA >100(A) None Seen, 0-5 /HPF 06/11/2023 3:15 PM [facility] Yeast Budding UA Many(A) None /HPF 06/11/19 24 3:15 PM [facility] Yeast Hyphenation UA Rare(A) None /HPF 06/11/2023 3:15 PM [facility] Squamous Epithelial Cells UA None Seen None Seen, 0-2, 3-5 /HPF 06/11/2023 3:15 PM [facility] Mucus UA 1+ /LPF 06/11/2023 3:15 PM [facility] Urine URINE SPECIMEN OBTAINED BY SINGLE CATHETERIZATION OF URINARY BLADDER / Unknown Collection / Unknown 06/11/2023 2:22 PM [facility] 06/11/2023 2:52 PM [facility]ICAL CLAIMS SPECIALIST Narrative [facility] - 06/11/2023 3:15 PM MEDICAL CLAIMS SPECIALIST Gaurav Nogueira MD LAB - URINALYSIS ORDERABLES Performing Organization Address [facility] Co de Phone Number [facility] [address] [place] [address], [facility] [phone] * SUSCEPTIBILITY NOT OTHERWISE SPECIFIED (06/11/2023 2:19 PM MEDICAL CLAIMS SPECIALIST) Prelim Report SEE NOTE 06/19/2023 11:05 AM [facility] [email or web address] ([facility]) Comment: Specimen received and in progress. SMICCefiderocol ? 0.25 Suscept Performed By: [employer] [address] [place] [address] Agriculture Instructor: Power Milian MD, PhD CLIA Number: [id number] Final Report SEE NOTE 06/19/2023 11:05 AM [facility] [email or web address] ([facility]) Comment: Pseudomonas aeruginosa Organism identified by client SMICCefiderocol ? 0.25 Suscept Performed By: [employer] [address] [phone] Agriculture Instructor: Power Milian MD, PhD CLIA Number: [id number] Microbiology LOWER RESPIRATORY FLUID SPECIMEN / Unknown Collection / Unknown 06/11/2023 2:19 PM [facility] CLAIMS SPECIALIST 06/11/2023 2:52 PM [employer]ICAL CLAIMS SPECIALIST Gaurav Nogueria MD LAB - MICROBIOLO GY ORDERABLES [facility] ([facility]) [address] [place] [phone] * (ABNORMAL) CULTURE SPUTUM+GRAM STAIN (06/11/2023 2:19 PM MEDICAL CLAIMS SPECIALIST) Only the most recent of7 resultswithin the time period is included. Culture Moderate Pseudomonas aeruginosa (mucoid)(A) 06/20/2023 9:48 AM [facility] Comment:Isolate is multi franchesca g resistant organism (MDRO). Culture Moderate Staphylococcus aureus methicillin-resista nt (MRSA)(A) JELLY 06/20/2023 9:48 AM [facility] Comment:Staphylococcus aureu s methicillin-resistant (MRSA) detected by penicillin binding protein immunoassay. Contact precautions required. Conventional antibiotic susceptibility testing to follow. Culture Rare normal oropharyngeal heidi 06/20/2023 9:48 AM MEDICAL CLAIMS SPECIALIST [facility] MICROBIOLOGY Gram Stain <10 per low power field Squamous epithelial cells 06/20/2023 9:48 AM [facility] Gram Stain >= 25 per low power field Polymorphonuclear cells 06/20/2023 9:48 AM [facility] Gram Stain Light Gram-positive cocci 06/20/2023 9:48 AM [facility] Microbiology LOWER RESPIRATORY FLUID SPECIMEN / Unknown Collection / Unknown 06/11/2023 2:19 PM MEDICAL CLAIMS SPECIALIST 06/11/2023 2:52 PM MEDICAL CLAIMS SPECIALIST Narrative [facility] - 06/20/2023 9:48 AM MEDICAL CLAIMS SPECIALIST This isolate is a multidrug resistant organism (MDRO). MDROs are resistant to 3 or more classes of antibiotics. Contact Precautions required. Infectious Diseases consult recommended. Methicillin-resistant Staphylococci (MRSA) are resistant to all currently available beta-lactam antibiotics with the exception of the newer cephalosporins with anti-MRSA activity. Contact precautions required. Organism Antibiotic Method Susceptibility Pseudomonas aeruginosa (mucoid) Aztreonam JELLY 32 ug/mL: Resistant Pseudomonas aeruginosa (mucoid) Cefepime JELLY 24 ug/mL: Resistant Pseudomonas aeruginosa (mucoid) Ceftazidime JELLY 4 ug/mL: Susceptible Pseudomonas aeruginosa (mucoid) Ciprofloxacin KB Susceptible Pseudomonas aeruginosa (mucoid) Imipenem JELLY 0.5 ug/mL: Susceptible Pseudomonas aeruginosa (mucoid) Levofloxacin JELLY 2 ug/mL: Intermediate Pseudomonas aeruginosa (mucoid) Meropenem KB Susceptible Pseudomonas aeruginosa (mucoid) Piperacillin-tazobactam KB Susceptible Pseudomonas aeruginosa (mucoid) Tobramycin JELLY 2 ug/mL: Intermediate Pseudomonas aeruginosa (mucoid) Ceftolozane-tazobactam JELLY 1 ug/mL: Susceptible Comment: Consultation with an Infectious Diseases practitioner is recommended for isolates for which the carbapenem JELLY's are in the intermediate or resistant ranges. Staphylococcus aureus methicillin-resistant (MRSA) Clindamycin JELLY >=4 ug/mL: Resistant Staphylococcus aureus methicillin-resistant (MRSA) Doxycycline JELLY >=16 ug/mL: Resistant Staphylococcus aureus methicillin-resistant (MRSA) Inducible Clindamycin Resistance JELLY NEG ug/mL: Neg Staphylococcus aureus methicillin-resistant (MRSA) Oxacillin JELLY >=4 ug/mL: Resistant Staphylococcus aureus methicillin-resistant (MRSA) Trimethoprim-sulfamethoxa zole JELLY <=10 ug/mL: Susceptible Staphylococcus aureus methicillin-resistant (MRSA) Vancomycin JELLY <=0.5 ug/mL: Susceptible Gaurav Nogueira MD LAB - MICROBIOLO GY ORDERABLES [facility] [address] [facility] [place] [phone], [facility] [phone] * LACTIC ACID BLOOD REFLEX TO REPEAT (06/09/2023 10:53 PM MEDICAL CLAIMS SPECIALIST) Only the most recent of16 resultswithin the time period is included. Lactic Acid-Stat 2.0 <=2.0 mmol/L 06/09/2023 11:27 PM MEDICAL CLAIMS SPECIALIST [facility] Blood BLOOD SPECIMEN / Unknown Venipuncture / Unknown 06/09/2023 10:53 PM MEDICAL CLAIMS SPECIALIST 06/09/2023 11:02 PM MEDICAL CLAIMS SPECIALIST Leonardo Hanson MD LAB - CHEMISTRY ORDE GATITO [facility] [address] [place] [address], [place] [phone] * LACTIC ACID REPEAT REFLEX (06/09/2023 8:17 PM MEDICAL CLAIMS SPECIALIST) Only the most recent of10 resultswithin the time period is included. Lactic Acid Repeat Reflex Order LACTIC ACID REPEAT HAS BEEN ORDERED 06/09/2023 10:30 PM MEDICAL CLAIMS SPECIALIST [facility] Blood BLOOD SPECIMEN / Unknown Venipuncture / Unknown 06/09/2023 8:17 PM MEDICAL CLAIMS SPECIALIST 06/09/2023 8:58 PM MEDICAL CLAIMS SPECIALIST Leonardo Hanson MD LAB - CHEMISTRY MARSHAL MEDEROS [facility] [address] [place] [phone], [facility] [phone] * SARS-COV-2 (COVID-19)+INFLU A+B PCR RAPID (06/09/2023 8:15 PM MEDICAL CLAIMS SPECIALIST) Only the most recent of5 resultswithin the time period is included. Pathologist [facility] COVID-19 PCR Not detected Not detected 06/09/19 9:19 PM MEDICAL CLAIMS SPECIALIST [facility] Influenza A Rapid BILLY Not Detected Not Detected 06/09/2023 9:19 PM MEDICAL CLAIMS SPECIALIST [facility] Influenza B BILLY Rapid Not Detected Not Detected 06/09/2023 9:19 PM MEDICAL CLAIMS SPECIALIST [facility] Microbiology SPECIMEN FROM NASOPHARYNGEAL STRUCTURE / Unknown Collection / Unknown 06/09/2023 8:15 PM MEDICAL CLAIMS SPECIALIST 06/09/2023 8:33 PM MEDICAL CLAIMS SPECIALIST Narrative [facility] - 06/09/2023 9:19 PM MEDICAL CLAIMS SPECIALIST Influenza assay performed by Nucleic Acid Amplification. Results do not exclude the possibility of a mixed viral infection. NOTE: ??Detecting and identifying specific viral nucleic acids from individuals exhibiting signs and symptoms of respiratory infection aids in the diagnosis of respiratory infection, if used in conjunction with other clinical and laboratory findings. The results of this test should not be used as the sole basis for diagnosis, treatment, or patient management decisions. This nucleic acid amplification assay performance was validated by [facility]. This test has been authorized by the Food and Drug administration (FDA)under an Emergency??Use Authorization (EUA). This test has been validated in accordance with the FDA's guidance document Policy for Diagnostic Testing in Laboratories Certified to perform High Complexity Testing under CLIA prior to Emergency Use Authorization for Coronavirus Disease-2019 during the Public Health Emergency issued on July 28, 2019. FDA independent review of this validation is pending. This test is only authorized for the duration of time the declaration that circumstances exist justifying the authorization of emergency use of in vitro diagnostic tests for detection of SARS-CoV-2 virus and/or diagnosis of COVID-19 infection under section 564(b)(1) of the Act, 21 U.S.C 360bbb-3 (b)(1), unless the authorization is terminated or revoked sooner. Fact Sheets for this EUA assay are available upon request. Leonardo Hanson MD LAB - MICROBIOLOGY O VANESSA [facility] [address] [place] [phone], [facility] [phone] * (ABNORMAL) BLOOD GASES ART + COOX PANEL (06/09/2023 8:14 PM MEDICAL CLAIMS SPECIALIST) Only the most recent of15 resultswithin the time period is included. pH Arterial 7.41 7.35 - 7.45 pH 06/09/2023 8:41 PM [facility] pO2 Arterial 82 80 - 100 mmHg 06/09/2023 8:41 PM [facility] pCO2 Arterial 40 35 - 45 mmHg 8:41 PM [facility] HCO3 Arterial 25.4 20.0 - 30.0 mmol/L 06/09/2023 8:41 PM [facility] BE Arterial 0.7 -2.0 - 2.0 mmol/L 06/09/2023 8:41 PM [facility] Oxyhemoglobin Arterial 95.1 % 06/09/2023 8:41 PM [facility] Dexoyhemoglobin (HHB) % 2.1 % 06/09/2023 8:41 PM [facility] Methemoglobin <0.8 0.0 - 2.0 % 06/09/2023 8:41 PM [facility] Carboxyhemoglobin 2.2(H) 0.0 - 2.0 % 2023 8:41 PM [facility] O2 Content Arterial 18.6 Interpret within clinical context ml/dL 06/09/2023 8:41 PM [facility] Hemoglobin by COOX 13.9 12.0 - 17.6 g/dL 06/09/2023 8:41 PM [facility] O2 Saturation Arterial 98 90 - 100 % 06/09/2023 8:41 PM [facility] FI O2 Arterial 35.0 % 06/09/2023 8:41 PM [facility] Blood, arterial ARTERIAL BLOOD SPECIMEN / Unknown Arterial Puncture / Unknown 06/09/2023 8:14 PM MEDICAL CLAIMS SPECIALIST 06/09/2023 8:34 PM [facility] - 06/09/2023 8:41 PM [facility] Carboxyhemoglobin Normal Concentration: Non-smokers: 0-2%; Smokers: 0-9%; Toxic: >20% Leonardo Hanson MD LAB - BLOOD GASES OR DERABLES [facility] [address] [place] [address], [facility] [phone] * (ABNORMAL) BLOOD GASES ANA + COOX PANEL (06/09/2023 7:02 PM MEDICAL CLAIMS SPECIALIST) Only the most recent of6 resultswithin the time period is included. pH Venous 7.27(L) 7.32 - 7.42 pH 06/09/2023 7:12 PM [facility] pO2 Venous 21(L) 35 - 40 mmHg 06/09/2023 7:12 PM [facility] pCO2 Venous 65(H) 40 - 50 mmHg 06/09/2023 7:12 PM [facility] HCO3 Venous 29.8 20 - 30 mmol/L 06/09/2023 7:12 PM [facility] Base Excess Venous 1.3 -2.0 - 2.0 mmol/L 06/09/2023 7:12 PM [facility] Oxyhemoglobin Venous 22.3 % 05/30 7:12 PM [facility] Deoxyhemoglobin (HHB) Venous % 77.1 % 06/09/2023 7:12 PM [facility] Methemoglobin <0.8 0.0 - 2.0 % 06/09/2023 7:12 PM [facility] Carboxyhemoglobin <0.4 0.0 - 2.0 % 2023 7:12 PM [facility] O2 Content Venous 4.2 Interpret within clinical context ml/dL 06/09/2023 7:12 PM [facility] Hemoglobin by COOX 13.2 12.0 - 17.6 g/dL 06/09/2023 7:12 PM [facility] O2 Saturation Venous 22(L) >=70 % 05/30 7:12 PM [facility] FI O2 Mixed Venous 100.0 % 2023 7:12 PM [facility] Blood BLOOD SPECIMEN / Unknown Venipuncture / Unknown 06/09/2023 7:02 PM MEDICAL CLAIMS SPECIALIST 06/09/2023 7:08 PM [facility] - 06/09/2023 7:12 PM [facility] Carboxyhemoglobin Normal Concentration: Non-smokers: 0-2%; Smokers: 0-9%; Toxic: >20% Leonardo Hanson MD LAB - BLOOD GASES OR DERABLES [facility] [address] [place] [phone], [facility] [phone] * (ABNORMAL) URINE MICROSCOPIC ONLY REFLEX TO CULTURE (06/09/2023 3:45 PM MEDICAL CLAIMS SPECIALIST) Reflex Status Culture to follow 06/09/2023 4:02 PM [facility] WBC UA >100(A) None Seen, 0-5 /HPF 06/09/2023 4:02 PM [facility] Bacteria UA Trace(A) None /HPF 06/09/2023 4:02 PM [facility] Yeast Budding UA Few(A) None /HPF 06/09/2023 4:02 PM [facility] Squamous Epithelial Cells UA None Seen None Seen, 0-2, 3-5 /HPF 06/09/2023 4:02 PM [facility] Calcium Oxalate UA Rare(A) None /HPF 06/09/2023 4:02 PM [facility] Urine URINE SPECIMEN OBTAINED BY SINGLE CATHETERIZATION OF URINARY BLADDER / Unknown Collection / Unknown 06/09/2023 3:45 PM MEDICAL CLAIMS SPECIALIST 06/09/2023 3:51 PM MEDICAL CLAIMS SPECIALIST Narrative [facility] - 06/09/2023 4:02 PM MEDICAL CLAIMS SPECIALIST Leonardo Hanson MD LAB - URINALYSIS ORD ERALETTY Performing Organization Address City/[facility]/ZIP Co de Phone Number [facility] [address] [place] [phone], [facility] [phone] * TROPONIN-I HIGH SENSITIVE REFLEX 1HOUR (06/09/2023 2:37 PM MEDICAL CLAIMS SPECIALIST) Only the most recent of2 resultswithin the time period is included. Troponin I High Sensitive 6 <=35 ng/L 06/09/2023 3:20 PM MEDICAL CLAIMS SPECIALIST [facility] Delta Troponin I HS <0 <6 ng/L 06/09/2023 3:20 PM MEDICAL CLAIMS SPECIALIST [facility] Blood BLOOD SPECIMEN / Unknown Venipuncture / Unknown 06/09/2023 2:37 PM MEDICAL CLAIMS SPECIALIST 06/09/2023 2:47 PM MEDICAL CLAIMS SPECIALIST Leonardo Hanson MD LAB - CHEMISTRY MARSHAL MEDEROS Performing Organization Address City/[facility]/ZIP Co de Phone Number [address] [address], [place] [phone] * TROPONIN-I HIGH SENSITIVE BASELINE + 1HR (06/09/2023 1:14 PM MEDICAL CLAIMS SPECIALIST) Only the most recent of2 resultswithin the time period is included. Troponin I High Sensitive 7 <=35 ng/L 06/09/2023 2:31 PM MEDICAL CLAIMS SPECIALIST [facility] Blood BLOOD SPECIMEN / Unknown Venipuncture / Unknown 06/09/2023 1:14 PM MEDICAL CLAIMS SPECIALIST 06/09/2023 1:41 PM MEDICAL CLAIMS SPECIALIST Leonardo Hanson MD LAB - CHEMISTRY MARSHAL MEDEROS [address] [address], [facility] [phone] * TSH REFLEX FREE T4 (06/09/2023 1:14 PM MEDICAL CLAIMS SPECIALIST) Only the most recent of5 resultswithin the time period is included. Pathologist [facility] TSH 1.238 0.350 - 4.940 uIU/mL 06/09/2023 2:31 PM MEDICAL CLAIMS SPECIALIST [facility] Blood BLOOD SPECIMEN / Unknown Venipuncture / Unknown 06/09/2023 1:14 PM MEDICAL CLAIMS SPECIALIST 06/09/2023 1:41 PM MEDICAL CLAIMS SPECIALIST Leonardo Hanson MD LAB - CHEMISTRY MARSHAL MEDEROS [facility] [address] [place] [phone], [facility] [phone] * PROCALCITONIN LEVEL (02/28/2023 5:41 AM CDT) Only the most recent of10 resultswithin the time period is included. [facility] PROCALCITONIN <0.02 <=0.10 ng/mL 02/28/2023 8:42 AM CDT [facility] Blood BLOOD SPECIMEN / Unknown Lab Venipuncture / Unknown 02/28/2023 5:41 AM CDT 02/28/2023 6:51 AM CDT Narrative [facility] - 02/28/2023 8:42 AM CDT The change in procalcitonin (PCT) concentration over time provides support in decision making on antibiotic discontinuation for suspected or confirmed septic patients. Follow-up samples should be tested once every 1-2 days based upon physician discretion taking into account the patient? s evolution and progress. Consider discontinuation of ??antibiotic therapy ??if the PCT current ??is <= 0.5 ng/mL or if the delta PCT is > 80%. ??Duration of antibiotics should not be determined solely on PCT; established guidelines for the indication should be followed. ? PCT peak: ??Highest observed PCT concentration ? PCT current: Most recent PCT concentration ? Calculate delta PCT using the following equation: ?Delta PCT ??= ?? PCT Peak ? PCT current ??X 100% ? PCT Peak The Change in Procalcitonin Calculator is available at [email or web address] ?? If clinical picture has not improved and PCT remains high, reevaluate and consider treatment failure or other causes. Cami Worthington MD LAB - CHEMISTRY MARSHAL MEDEROS [facility] [address] [place] [address], [facility] [phone] * (ABNORMAL) RENAL FUNCTION PANEL (02/28/2023 5:41 AM CDT) Only the most recent of28 resultswithin the time period is included. BUN 9 7 - 26 mg/dL 02/28/2023 7:25 AM [facility] Creatinine 0.41(L) 0.71 - 1.16 mg/dL 02/28/2023 7:25 AM [facility] Sodium 138 136 - 145 mmol/L 02/28/2023 7:25 AM [facility] Potassium 4.7(H) 3.5 - 4.5 mmol/L 02/28/2023 7:25 AM [facility] Chloride 107 98 - 107 mmol/L 02/28/2023 7:25 AM [facility] CO2 27 22 - 29 mmol/L 02/28/2023 7:25 AM [facility] Glucose 83 70 - 115 mg/dL 02/28/2023 7:25 AM [facility] Albumin 2.5(L) 3.4 - 5.0 g/dL 02/28/2023 7:25 AM [facility] Calcium 9.2 8.4 - 10.2 mg/dL 02/28/2023 7:25 AM CDT [facility] Phosphorus 2.9 2.8 - 5.1 mg/dL 02/28/2023 7:25 AM [facility] Anion Gap 4(L) 6 - 16 02/28/2023 7:25 AM [facility] BUN/Creatinine Ratio 22 7 - 23 02/28/2023 7:25 AM [facility] Osmolality Calculated 284 275 - 295 mOsm/kg 02/28/2023 7:25 AM [facility] eGFR by CKD-EPI >90 >=90 mL/min/1.7 3 m2 02/28/2023 7:25 AM [facility] Blood BLOOD SPECIMEN / Unknown Lab Venipuncture / Unknown 02/28/2023 5:41 AM CDT 02/28/2023 6:57 AM CDT Cami Worthington MD LAB - CHEMISTRY MARSHAL MEDEROS [address] [address], [facility] [phone] * ALT (02/28/2023 5:41 AM CDT) ALT 7 5 - 55 U/L 02/28/2023 7:37 AM CDT [facility] Blood BLOOD SPECIMEN / Unknown Lab Venipuncture / Unknown 02/28/2023 5:41 AM CDT 02/28/2023 6:57 AM CDT Cami Worthington MD LAB - CHEMISTRY MARSHAL MEDEROS [address] [address], [facility] [phone] * AST BLOOD (02/28/2023 5:41 AM CDT) AST 13 5 - 34 U/L 02/28/2023 7:37 AM CDT [facility] Blood BLOOD SPECIMEN / Unknown Lab Venipuncture / Unknown 02/28/2023 5:41 AM CDT 02/28/2023 6:57 AM CDT Cami Worthington MD LAB - CHEMISTRY MARSHAL MEDEROS [address] [address], [place] [phone] * PROTEIN TOTAL BLOOD (02/28/2023 5:41 AM CDT) Protein Total 6.5 6.0 - 8.3 g/dL 02/28/2023 7:37 AM CDT [facility] Blood BLOOD SPECIMEN / Unknown Lab Venipuncture / Unknown 02/28/2023 5:41 AM CDT 02/28/2023 6:57 AM CDT Cami Worthington MD LAB - CHEMISTRY MARSHAL MEDEROS Performing Organization Address [facility]/ZIP Co de Phone Number [address] [address], [place] [phone] * BILIRUBIN TOTAL+DIRECT BLOOD PANEL (02/28/2023 5:41 AM CDT) Bilirubin Total 0.2 0.2 - 1.2 mg/dL 06/2022 7:38 AM CDT [facility] Bilirubin Conjugated 0.1 0.1 - 0.5 mg/dL 02/28/2023 7:38 AM CDT [facility] Bilirubin Unconjugated 0.1 Unconjugated Bilirubin is a calculated value: Reference ranges have not been established. mg/dL 02/28/2023 7:38 AM CDT [facility] Blood BLOOD SPECIMEN / Unknown Lab Venipuncture / Unknown 02/28/2023 5:41 AM CDT 02/28/2023 6:57 AM CDT Cami Worthington MD LAB - CHEMISTRY MARSHAL MEDEROS Performing Organization Address City/[facility]/ZIP Co de Phone Number [address] [address], [place] [phone] * ALKALINE PHOSPHATASE BLOOD (02/28/2023 5:41 AM CDT) Alkaline Phosphatase 79 40 - 150 U/L 02/28/2023 7:37 AM CDT [facility] Blood BLOOD SPECIMEN / Unknown Lab Venipuncture / Unknown 02/28/2023 5:41 AM CDT 02/28/2023 6:57 AM CDT Cami Worthington MD LAB - CHEMISTRY MARSHAL MEDEROS [facility] [address] [place] [address], [facility] [phone] * CT CHEST ABDOMEN PELVIS WO CONT (02/23/2023 5:58 AM CDT) Anatomical Region Laterality Modality Chest, Abdomen, Pelvis Computed Tomography 02/23/2023 6:15 AM CDT Impressions 02/23/2023 8:19 AM CDT Impression: 1.Atelectasis of the lower lobe of the right lung, patchy atelectasis in the right middle and left lower lobe and groundglass opacities within nodularity in the right upper lobe. There are associated bronchial wall thickening. Findings are suggestive aspiration/retained secretions associated atelectasis. 2.Percutaneous gastrojejunostomy tube. No evidence of inflammation around the tube entrance site in the gastric antrum. 3.No free air or free fluid is noted in the abdomen or pelvis. 4.Extensive dense stool is noted throughout the entire colon and rectum. These findings were discussed in detail with the patient's care provider, Dr. Coombs by Dr. Nash Arreola via telephone at 02/23/2023 6:30 AM with readback comprehension and verification. > Dictated by Nash Arreola MD (residential assistant). I, Bebo Kuo MD have personally reviewed and interpreted this examination/study. > Interpreting Provider: Bebo Kuo MD on 02/23/2023 8:19 AM Narrative 02/23/2023 8:19 AM CDT PROCEDURE: ??CT CHEST ABDOMEN PELVIS WO CONT, DATE/TIME OF EXAM: ??02/23/2023 5:59 AM, LOCATION ??[facility] INDICATION: K94.23: PEG tube malfunction (CMS/HCC) ADDITIONAL CLINICAL INFORMATION: Ordering Provider Reason For Exam: ??concern free air under liver, GJ tube issue COMPARISON: CT chest abdomen pelvis from 06/28/[address] chest angiogram PE protocol dated 11/27/2022. TECHNIQUE: CT of the chest, abdomen, and pelvis was performed without contrast according to standard protocol. Findings: Evaluation of visceral and vascular structures is degraded due to lack of intravenous contrast administration. Lines and tubes: Thoracostomy tube terminates in the midthoracic trachea. Chest: Lower Neck and Axillae: Normal. Lungs: Mild debris is noted in the distal trachea. Atelectasis of the right lower lobe and patchy atelectasis in the right middle and groundglass opacities within nodularity and bronchial wall thickening in the right upper lobe. Segmental atelectasis of the left lower lobe and mild bronchial wall thickening noted. Findings are suggestive of aspiration. No pleural fluid or pneumothorax is present. Heart and Pericardium: The cardiac chambers are normal in size. No pericardial fluid or thickening is present. Coronary artery calcifications are seen. Mediastinum and Almita: No enlarged lymph nodes are present. Thoracic Vasculature: No vascular abnormality is present. Abdomen/pelvis: Liver: Within the limitations of a noncontrast examination, the liver is unremarkable. Gallbladder and Bile Ducts: A gallstone is seen. No wall thickening or pericholecystic fluid. Spleen: Normal. Pancreas: Normal. Adrenals: Normal. Kidneys: There are multiple punctate hyperdensities in the bilateral kidneys which may represent nonobstructive calculi versus atherosclerotic calcifications. Gastrointestinal: A small hiatal hernia is present. There is a percutaneous gastrojejunostomy tube with a balloon in the stomach. Tip of the tube is in the jejunum. The loops of small bowel are unremarkable. Extensive dense stool is noted throughout the entire colon and rectum. Mesentery/Peritoneum/Retroperitoneum: No free fluid in the abdomen or pelvis. No free intraperitoneal air. Bladder: A Jensen catheter terminates within a decompressed urinary bladder. Gas is noted in the urinary bladder, likely due to catheterization. Reproductive Organs: The prostate is enlarged, measuring 5.5 cm cm transversely. Seminal vascular calcifications are present. Abdominal Vasculature: No vascular abnormality is present. Bones: Bone windows demonstrate no suspicious lytic or blastic lesions. The visible osseous structures are intact. Degenerative changes are seen in the spine. Chronic deformity of the right distal clavicle, unchanged. Soft tissues: Normal. Procedure Note Bebo Kuo MD - 02/23/2023 PROCEDURE: CT CHEST ABDOMEN PELVIS WO CONT, DATE/TIME OF EXAM:02/23/2023 5:59 AM, LOCATION [facility] INDICATION: K94.23: PEG tube malfunction (CMS/HCC) ADDITIONAL CLINICAL INFORMATION: Ordering Provider Reason For Exam: concern free air under liver, GJtube issue COMPARISON: CT chest abdomen pelvis from 06/28/[address] chest angiogram PEprotocol dated 11/27/2022. TECHNIQUE: CT of the chest, abdomen, and pelvis was performed without contrast according to standard protocol. Findings: Evaluation of visceral and vascular structures is degraded due to lackof intravenous contrast administration. Lines and tubes: Thoracostomy tube terminates in the midthoracic trachea. Chest: Lower Neck and Axillae: Normal. Lungs: Mild debris is noted in the distal trachea. Atelectasis of the rightlower lobe and patchy atelectasis in the right middle and groundglassopacities within nodularity and bronchial wall thickening in the right upper lobe. Segmental atelectasis of the left lower lobe and mild bronchial wall thickening noted. Findings are suggestive of aspiration. No pleural fluid or pneumothorax is present. Heart and Pericardium: The cardiac chambers are normal in size. No pericardial fluid orthickening is present. Coronary artery calcifications are seen. Mediastinum and Almita: No enlarged lymph nodes are present. Thoracic Vasculature: No vascular abnormality is present. Abdomen/pelvis: Liver: Within the limitations of a noncontrast examination, the liver is unremarkable. Gallbladder and Bile Ducts: A gallstone is seen. No wall thickening or pericholecystic fluid. Spleen: Normal. Pancreas: Normal. Adrenals: Normal. Kidneys: There are multiple punctate hyperdensities in the bilateral kidneyswhich may represent nonobstructive calculi versus atheroscleroticcalcifications. Gastrointestinal: A small hiatal hernia is present. There is a percutaneousgastrojejunostomy tube with a balloon in the stomach. Tip of the tube is in the jejunum. The loops of small bowel are unremarkable. Extensive dense stool isnoted throughout the entire colon and rectum. Mesentery/Peritoneum/Retroperitoneum: No free fluid in the abdomen or pelvis. No free intraperitoneal air. Bladder: A Jensen catheter terminates within a decompressed urinary bladder. Gasis noted in the urinary bladder, likely due to catheterization. Reproductive Organs: The prostate is enlarged, measuring 5.5 cm cm transversely. Seminal vascular calcifications are present. Abdominal Vasculature: No vascular abnormality is present. Bones: Bone windows demonstrate no suspicious lytic or blastic lesions. The visible osseous structures are intact. Degenerative changes are seen inthe spine. Chronic deformity of the right distal clavicle, unchanged. Soft tissues: Normal. Impression: 1.Atelectasis of the lower lobe of the right lung, patchy atelectasis in the right middle and left lower lobe and groundglass opacities within nodularity in the right upper lobe. There are associated bronchial wall thickening. Findings are suggestive aspiration/retained secretions associated atelectasis. 2.Percutaneous gastrojejunostomy tube. No evidence of inflammationaround the tube entrance site in the gastric antrum. 3.No free air or free fluid is noted in the abdomen or pelvis. 4.Extensive dense stool is noted throughout the entire colon and rectum. These findings were discussed in detail with the patient's careprovider, Dr. Coombs by Dr. Nash Arreola via telephone at 02/23/2023 6:30 AM with readback comprehension and verification. > Dictated by Nash Arreola MD (residential assistant). I, Bebo Kuo MD have personally reviewed and interpreted this examination/study. > Interpreting Provider: Bebo Kuo MD on 38:19 AM Kortney Vega MD CT ORDERABLES * XR ABD OBSTR SERIES W CHEST 1VW (02/23/2023 4:13 AM CDT) Anatomical Region Laterality Modality Abdomen Radiographic Adan ging 02/23/2023 4:23 AM CDT Impressions 02/23/2023 9:26 AM CDT IMPRESSION: 1.Tracheostomy tube and gastrojejunostomy tubes are in place. Moderate atelectasis/airspace disease of the right lower lung field plus pleural effusion. Mild left atelectasis and minimal left pleural fluid. 2.Possible free intraperitoneal air. Recommend CT abdomen/pelvis for further characterization. 3.Non-obstructive bowel gas pattern. Findings were communicated to Dr. Coombs by telephone by Dr. Welch at 02/23/2023 4:30 AM with readback comprehension and verification. Report dictated by Ashu Welch M.D. (residential assistant) 02/23/2023 4:31 AM IRachel MD have personally reviewed and interpreted this examination/study. > Interpreting Provider: Rachel Phillips MD on 02/23/2023 9:26 AM Narrative 02/23/2023 9:26 AM CDT PROCEDURE: ??XR ABD OBSTR SERIES W CHEST 1VW, DATE/TIME OF EXAM: ??02/23/2023 4:13 AM, LOCATION ??[facility] INDICATION: K94.23: PEG tube malfunction (CMS/HCC) ADDITIONAL CLINICAL INFORMATION: Ordering Provider Reason For Exam: ??possible bowel obstructive vs GJ tube obstruction COMPARISON: Abdominal radiograph 12/31/2022 TECHNIQUE: Frontal radiograph of the chest and abdomen. FINDINGS: CHEST: Tracheostomy tube terminates within the mid thoracic trachea.The heart is normal in size. Small bilateral pleural effusions are seen, right greater than left. Moderate opacification at the right base due to atelectasis/airspace disease has developed. Mild atelectasis is seen at the left base. No pneumothorax. The heart size and mediastinal contours are normal. The visible bony thorax is intact. ABDOMEN: A gastrojejunostomy tube overlies the left upper quadrant. There is question of free intraperitoneal air near the tip of the liver. There is no dilatation of small or large bowel. No abnormal calcifications are seen. Degenerative changes are present at the bilateral, left greater than right hip joints. Procedure Note Rachel Phillips MD - 02/23/2023 PROCEDURE: XR ABD OBSTR SERIES W CHEST 1VW, DATE/TIME OF EXAM:02/23/2023 4:13 AM, LOCATION [facility] INDICATION: K94.23: PEG tube malfunction (CMS/HCC) ADDITIONAL CLINICAL INFORMATION: Ordering Provider Reason For Exam: possible bowel obstructive vs GJtube obstruction COMPARISON: Abdominal radiograph 12/31/2022 TECHNIQUE: Frontal radiograph of the chest and abdomen. FINDINGS: CHEST: Tracheostomy tube terminates within the mid thoracic trachea.The heartis normal in size. Small bilateral pleural effusions are seen, right greater than left. Moderate opacification at the right base due to atelectasis/airspace disease has developed. Mild atelectasis is seen at the left base. No pneumothorax. The heart size and mediastinal contours are normal. The visible bony thorax is intact. ABDOMEN: A gastrojejunostomy tube overlies the left upper quadrant. There is question of free intraperitoneal air near the tip of the liver. There is no dilatation of small or large bowel. No abnormal calcifications are seen. Degenerative changes are present at the bilateral, left greater thanright hip joints. IMPRESSION: 1.Tracheostomy tube and gastrojejunostomy tubes are in place. Moderate atelectasis/airspace disease of the right lower lung field plus pleural effusion. Mild left atelectasis and minimal left pleural fluid. 2.Possible free intraperitoneal air. Recommend CT abdomen/pelvis for further characterization. 3.Non-obstructive bowel gas pattern. Findings were communicated to Dr. Coombs by telephone by at 02/23/2023 4:30 AM with readback comprehension and verification. Report dictated by Ashu Welch M.D. (residential assistant) 02/23/2023 4:31 AM I, Rachel Phillips MD have personally reviewed and interpreted this examination/study. > Interpreting Provider: Rachel Phillips MD on 02/23/2023 9:26 AM Kortney Vega MD DIAGNOSTIC IMAGING O RDERABLES * (ABNORMAL) TRIGLYCERIDES BLOOD (01/14/2023 9:35 AM CDT) Only the most recent of3 resultswithin the time period is included. Triglycerides 339(H) <150 mg/dL 01/14/2023 10:09 AM CDT [facility] Comment: ATP III Classification of Triglycerides: ?<150 mg/dL: ??Normal ? 150 - 199 mg/dL: ??Borderline High ? 200 - 400 mg/dL: ??High ?>500 mg/dL: ??Very High Blood BLOOD SPECIMEN / Unknown Venipuncture / Unknown 01/14/2023 9:35 AM CDT 01/14/2023 9:43 AM CDT Lisset Norris MD LAB - CHEMISTRY ORDE GATITO Performing Organization Address City/[facility] Co de Phone Number [address] [address], [facility] [phone] * CALCIUM IONIZED WHOLE BLOOD (01/14/2023 4:24 AM CDT) Only the most recent of17 resultswithin the time period is included. Calcium Ionized 1.32 mmol/L 01/14/2023 4:31 AM CDT [facility] pH 7.42 7.35 - 7.45 pH 01/14/2023 4:31 AM CDT [facility] Ionized Calcium pH Adjusted 1.33 1.19 - 1.34 mmol/L 01/14/2023 4:31 AM CDT [facility] Blood BLOOD SPECIMEN / Unknown Venipuncture / Unknown 01/14/2023 4:24 AM CDT 01/14/2023 4:29 AM CDT Ck Small MD LAB - CHEMISTRY ORDERABLES Performing Organization Address [facility] Co de Phone Number [address] [address], [facility] [phone] * FOLATE (01/02/2023 3:39 AM CDT) Only the most recent of3 resultswithin the time period is included. Folate 14.7 7.0 - 31.4 ng/mL 01/02/2023 4:38 AM CDT [facility] Blood BLOOD SPECIMEN / Unknown Venipuncture / Unknown 01/02/2023 3:39 AM CDT 01/02/2023 3:51 AM CDT Blair Cagle MD LAB - CHEMISTRY ORD ERABLES [facility] [address] [place] [address], [place] [phone] * (ABNORMAL) VITAMIN B12 (01/02/2023 3:39 AM CDT) Only the most recent of3 resultswithin the time period is included. Vitamin B12 1,814(H) 213 - 816 pg/mL 01/02/2023 4:38 AM CDT [facility] Blood BLOOD SPECIMEN / Unknown Venipuncture / Unknown 01/02/2023 3:39 AM CDT 01/02/2023 3:51 AM CDT Blair Cagle MD LAB - CHEMISTRY ORD ERABLES Performing Organization Address City/[facility]/ZIP Co de Phone Number [address] [address], [place] [phone] * IRON + TRANSFERRIN PANEL (01/02/2023 3:39 AM CDT) Iron 53 50 - 175 ug/dL 01/02/2023 4:53 AM CDT [facility] Transferrin 255 174 - 382 mg/dL 01/02/2023 4:53 AM CDT [facility] Transferrin Saturation % 17 16 - 50 % 01/02/2023 4:53 AM CDT [facility] TIBC Calculated 319 240 - 450 ug/dL 01/02/2023 4:53 AM CDT [facility] Blood BLOOD SPECIMEN / Unknown Venipuncture / Unknown 01/02/2023 3:39 AM CDT 01/02/2023 3:43 AM CDT Blair Cagle MD LAB - CHEMISTRY ORD ERABLES [address] [address], [place] [phone] * FERRITIN (01/02/2023 3:39 AM CDT) Ferritin 55 22 - 275 ng/mL 01/02/2023 5:11 AM CDT [facility] Blood BLOOD SPECIMEN / Unknown Venipuncture / Unknown 01/02/2023 3:39 AM CDT 01/02/2023 3:43 AM CDT Blair Cagle MD LAB - CHEMISTRY ORD ERABLES Performing Organization Address City/[facility]/ZIP Co de Phone Number [address] [address], [facility] [phone] * CORTISOL BLOOD AM (01/02/2023 3:39 AM CDT) Cortisol AM 7.8 3.7 - 19.4 ug/dL 01/02/2023 4:23 AM CDT [facility] Blood BLOOD SPECIMEN / Unknown Venipuncture / Unknown 01/02/2023 3:39 AM CDT 01/02/2023 3:51 AM CDT Narrative [facility] - 01/02/2023 4:23 AM CDT Normal cortisol levels are generally highest in the morning hours and lowest from late evening through the squeegeer and former hours (8 PM to 4 AM). ??The PM measurements of cortisol run approximately one-half to one-third of the AM values. Blair Cagle MD LAB - CHEMISTRY ORD ERABLES Performing Organization Address [facility] Co de Phone Number [address] [address], [facility] [phone] * AMMONIA (01/01/2023 12:46 AM CDT) Only the most recent of2 resultswithin the time period is included. Ammonia 31 <=72 umol/L 01/01/2023 1:28 AM CDT [facility] Blood BLOOD SPECIMEN / Unknown Venipuncture / Unknown 01/01/2023 12:46 AM CDT 01/01/2023 1:09 AM CDT Ck Small MD LAB - CHEMISTRY ORDERABLES Performing Organization Address City/[facility]/ZIP Co de Phone Number [address] [address], [facility] [phone] * TROPONIN-I HIGH SENSITIVE (12/31/2022 8:53 PM CDT) Only the most recent of4 resultswithin the time period is included. [facility] Troponin I High Sensitive 4 <=35 ng/L 12/31/2022 9:36 PM CDT [facility] Blood BLOOD SPECIMEN / Unknown Venipuncture / Unknown 12/31/2022 8:53 PM CDT 12/31/2022 9:01 PM CDT Ck Small MD LAB - CHEMISTRY ORDERABLES Performing Organization Address City/[facility]/ZIP Co de Phone Number [address] [address], [facility] [phone] * (ABNORMAL) RBC MORPHOLOGY (12/16/2022 3:49 AM CDT) [facility] Platelet Estimate Decreased(A) Adequate 12/16/2022 5:20 AM CDT [facility] Anisocytosis Occasional(A ) None 12/16/2022 5:20 AM CDT [facility] Ovalocytes Occasional(A ) None 12/16/2022 5:20 AM CDT [facility] [place] Cells 2+(A) None 12/16/2022 5:20 AM CDT [facility] Comment Platelet Platelet clumpled on the smear but appear decreased. 12/16/2022 5:20 AM CDT [facility] Blood BLOOD SPECIMEN / Unknown Lab Venipuncture / Unknown 12/16/2022 3:49 AM CDT 12/16/2022 4:04 AM CDT Neville Hewitt III, MD LAB - HEMATOLOGY ORDERABLES Performing Organization Address [facility]/ZIP Co de Phone Number [address] [address], [facility] [phone] * GASTROSTOMY TUBE, CHANGE / REPOSITION (12/10/2022 1:11 PM CDT) Narrative [facility] - 12/10/2022 1:11 PM CDT Marcella Flores, DO ? 12/10/2022 ??1:17 PM PEG tube exchange: -Witnessed phone consent was obtained from sister (Adriane Hilliard) for PEG tube exchange - 24 Fr Rojas Cook PEG tube (which was placed 02/2022 endoscopically) was noted in the epigastric region. Markings no longer visible. Per endoscopy report, tube was placed around 4 cm at the skin. The tube was freely rotating with 1 cm between the external bumper and skin. -The tube (with a collapsible internal bumper) was successfully removed by traction. -A 24 Fr Kangaroo replacement G-tube with 20 cc balloon was placed through the tract and was advanced without resistance to about 6 cm. The balloon was inflated with 20 cc sterile water. The tube was then retracted to about 4 cm at the external bumper. The bumper was secured in place with a zip tie. -The patient tolerated the procedure well. The attending (Dr. Rowe) was present for all portions of the procedure. Marcella Flores DO Gastroenterology & Hepatology Fellow Division of Gastroenterology and Hepatology [facility] Dina Pritchard DO GI PROCEDURE ORDERAB LES [facility] * NM GASTRIC EMPTYING (12/07/2022 3:51 PM CDT) Anatomical Region Laterality Modality Abdomen Nuclear Medicine 12/07/2022 2:16 PM CDT Impressions 12/07/2022 4:40 PM CDT Impression: ?? Abnormal delayed gastric emptying with T 1/2 of >120 minutes. Of note, standardized normal values are not established for liquid gastric emptying and may vary per institution protocol. > Dictated by Concha Turner MD (Health And Safety Representative) 12/07/2022 2:16 PM Sarah Thomason DO have personally reviewed and interpreted this examination/study. > Interpreting Provider: Sarah Mason DO on 12/07/2022 4:40 PM Narrative 12/07/2022 4:40 PM CDT PROCEDURE: ??NM GASTRIC EMPTYING DATE/TIME OF EXAM: ??12/07/2022 2:25 PM CLINICAL INFORMATION: None relevant/not provided if blank. Indication: Z93.1: PEG (percutaneous endoscopic gastrostomy) status (CMS/HCC) Procedure: Gastric Emptying Study History: 62-year-old male patient with history of respiratory failure, stroke, dementia, status post tracheostomy and PEG tube insertion, admitted to the ICU following ENT procedure complicated by internal ventricular tachycardia, scheduled for gastric emptying study today prior to potential transfer of G-tube to GJ tube. Patient's BMI is 22.4 kg/m. Technique: 0.550 mCi of Tc- 99m- sulfur colloid mixed in 500 ml of formula over 90 minutes through the gastrostomy tube. Comparison: No similar study Findings: Dynamic anterior images were acquired for 90 minutes. The T1/2 of the study was >120 minutes. The % of meal remaining in the stomach at alanis time points after ingestion was: 97.0% ?? @ 30 minutes 97.0% ?? @ 60 minutes 96.0% ?? @ 90 minutes Procedure Note Sarah Mason, - 12/07/2022 PROCEDURE: NM GASTRIC EMPTYING DATE/TIME OF EXAM: 12/07/2022 2:25 PM CLINICAL INFORMATION: None relevant/not provided if blank. Indication: Z93.1: PEG (percutaneous endoscopic gastrostomy) status (CMS/HCC) Procedure: Gastric Emptying Study History: 62-year-old male patient with history of respiratory failure, stroke, dementia, status post tracheostomy and PEG tube insertion,admitted to the ICU following ENT procedure complicated by internal ventricular tachycardia, scheduled for gastric emptying study today prior topotential transfer of G-tube to GJ tube. Patient's BMI is 22.4 kg/m. Technique: 0.550 mCi of Tc- 99m- sulfur colloid mixed in 500 ml of formula over 90 minutes through the gastrostomy tube. Comparison: No similar study Findings: Dynamic anterior images were acquired for 90 minutes. The T1/2of the study was >120 minutes. The % of meal remaining in the stomach at alanis time points afteringestion was: 97.0% @ 30 minutes 97.0% @ 60 minutes 96.0% @ 90 minutes Impression: Abnormal delayed gastric emptying with T 1/2 of >120 minutes. Of note, standardized normal values are not established for liquid gastricemptying and may vary per institution protocol. > Dictated by Concha Turner MD (Health And Safety Representative) 12/07/2022 2:16PM I, Sarah Mason DO have personally reviewed and interpreted this examination/study. > Interpreting Provider: Sarah Mason DO on 12/07/2022 4:40 PM Ilir Mckenzie MD NM ORDERABLES * TRANSFUSE RED BLOOD CELL LEUKOREDUCED UNIT(S) (12/01/2022 2:23 AM CDT) Ilir Mckenzie MD NURSING - BLOOD PROD TRANSFUSION * PREPARE (CROSSMATCH) RBC UNIT(S), 1 Units (11/30/2022 10:51 PM CDT) Pathologist [facility] Unit Description AS1 LR PRBC IRR [facility] Unit ABO O [facility] Unit Rh POS [facility] Product Number R04 [facility] Unit Donor # [id number] [facility] Unit Status transfused [facility] Product Code [id number] [facility] Blood Type Barcode 5100 [facility] Expiration Date [id number] S BLOOD BANK LAB Blood Bank BLOOD SPECIMEN / Unknown 11/30/2022 5:03 PM CDT Ilir Mckenzie MD LAB - BLOOD BANK ORD ERABLES [facility] [address] [place] [address], [facility] [phone] * VAS BILATERAL VENOUS DUPLEX LE (11/29/2022 11:46 AM CDT) Anatomical Region Laterality Modality Lower Extremity Intravascular Ul trasound 11/29/2022 11:1 3 AM CDT Narrative Procedure Note Kaylee Wills MD - 11/29/2022 Ramya Witt MD VASCULAR LAB OR DERABLES * (ABNORMAL) ECHO COMPLETE (11/29/2022 9:56 AM CDT) Pathologist [facility] BSA 1.3429479 m2 SSM CV FUJ I PACS LV biplane EF 45 52 - 72 % SSM CV FUJI PACS LV A2C EF 40 48 - 76 % SSM CV FUJ I PACS LV A4C EF 50 46 - 74 % SSM CV FUJ I PACS LVOT stroke vol 45.12 cm3 SSM CV FUJI PACS LV stroke vol 2D teich 33.839 ml SSM CV FUJI PACS LV stroke vol index A4C MOD 35.153 ml SSM CV FUJI PACS LVIDd 4.48 4.2 - 5.8 cm SSM CV FUJI PACS LVIDs 3.69 2.5 - 4.0 cm SSM CV FUJI PACS IVSd 2D 1.326 0.6 - 1 cm SSM CV FUJI PACS IVSs 1.67 cm SSM CV FUJ I PACS LVPWd 1.00 cm SSM CV FUJ I PACS Fractional Shortening 2D 18 28 - 44 % SSM CV FUJI PACS LV ESV BP 36.462 21 - 61 mL SSM CV FUJI PACS LV ESV index BP 19.6 11 - 31 mL/m2 SSM CV FUJI PACS LV ESV A2C 35.427 15 - 75 mL SSM CV FUJI PACS LV EDV BP 66.37 mL SSM CV FUJ I PACS LV ESV A4C 37.448 22 - 78 mL SSM CV FUJI PACS LV EDV index BP 35.8 34 - 74 mL/m2 SSM CV FUJI PACS LV EDV A2C 62.641 59 - 175 mL SSM CV FUJI PACS LV EDV A4C 70.58 mL SSM CV FU JI PACS LV ESV 2D 57.656 21 - 61 mL SSM CV FUJI PACS LV EDV 2D 91.494 62 - 150 mL SSM CV FUJI PACS LVOT diam 2.0 cm SSM CV FUJ I PACS LVOT area 3.14 cm2 SSM CV FUJ I PACS LV RWT 0.446 SSM CV FUJ I PACS LV Gutierrez A2C 7.796 cm SSM CV F UJI PACS LV Gutierrez A4C 7.882 cm SSM CV F UJI PACS MV E pk vladimir 54.381 cm/s SSM CV F UJI PACS MV avg E/e' ratio 5.89 SS M CV FUJI PACS MV A pk vladimir 84.933 cm/s SSM CV F UJI PACS MV E A ratio 0.64 SSM CV FUJI PACS MV E' lateral vladimir 9.013 cm/s SS M CV FUJI PACS MV DT 172 ms SSM CV FUJ I PACS MV E' septal vladimir 9.46 cm/s SSM CV FUJI PACS MV A duration 126 ms SSM CV FUJI PACS MV E/e' septal 5.749 SSM C V FUJI PACS MV E/e' lateral 6.034 SSM CV FUJI PACS TR pk vladimir 225.4 cm/s SSM CV FUJ I PACS P vein A vladimir 29.2 cm/s SSM CV FUJI PACS P vein A duration 112 ms SS M CV FUJI PACS LVOT pk vladimir 0.94 m/s SSM CV F UJI PACS LVOT mn vladimir 0.62 m/s SSM CV F UJI PACS LVOT mn grad 1.8 mmHg SSM CV FUJI PACS LVOT Cardiac Output 5.445 l/min SSM CV FUJI PACS LA ESV A2C MOD Index 23 ml/m2 SSM CV FUJI PACS LA ESV A4C MOD Index 13 ml/m2 SSM CV FUJI PACS LA size 3.261 3.0 - 4.0 cm SSM CV FUJI PACS LA vol BP A-L 36.602 mL SSM CV FUJI PACS RV-gutierrez longitudinal diam 6.4 5.9 - 8.3 cm SSM CV FUJI PACS RVIDd 2.7 cm SSM CV FUJ I PACS RVOT VTI 14.352 cm SSM CV FUJ I PACS TV S' vladimir 18.406 SSM CV FUJ I PACS TAPSE 1.404(A) 1.7 cm SSM CV FUJ I PACS RVOT pk vladimir 0.92 m/s SSM CV F UJI PACS RA area 12.027 cm2 SSM CV FUJ I PACS AV mn grad 4 mmHg SSM CV FU JI PACS AV pk grad 8 mmHg SSM CV FU JI PACS AV mn vladimir 0.98 m/s SSM CV FUJ I PACS AV pk vladimir 1.39 m/s SSM CV FUJ I PACS AV VTI 20.298 cm SSM CV FUJ I PACS LVOT pk grad 3.53 mmHg SSM CV FUJI PACS LVOT VTI 14.371 cm SSM CV FUJ I PACS AV area planimetry 2.22 cm2 SSM CV FUJI PACS AV area index 1.2 cm2/m2 SSM CV FUJI PACS AV area cont VTI 2.3 cm2 SSM CV FUJI PACS AV area pk vladimir 2.2 cm2 SSM C V FUJI PACS AV Doppler vladimir index pk vladimir 0.68 SSM CV FUJI PACS Dimensionless Index 0.708 SSM CV FUJI PACS MV mn grad 2 mmHg SSM CV FU JI PACS MV pk grad 4 mmHg SSM CV FU JI PACS MV mn vladimir 0.62 m/s SSM CV FUJ I PACS MV pk vladimir 99.51 cm/s SSM CV FUJ I PACS MV PHT 50 ms SSM CV FUJ I PACS MV area PHT 4.40 cm2 SSM CV F UJI PACS MV area cont eq 3.15 cm2 SSM CV FUJI PACS MV VTI 14.336 cm SSM CV FUJ I PACS MV decel slope 317.056 cm/s2 SSM C V FUJI PACS TR VTI 58.2 cm SSM CV FUJ I PACS TR pk grad 20 mmHg SSM CV FU JI PACS RVOT mn grad 2 mmHg SSM CV FUJI PACS RVOT pk grad 3 mmHg SSM CV FUJI PACS PV mn grad 2 mmHg SSM CV FU JI PACS PV pk vladimir 83.049 cm/s SSM CV FUJ I PACS PV pk grad 3 mmHg SSM CV FU JI PACS PV VTI 16.943 cm SSM CV FUJ I PACS PV mn vladimir 63.148 cm/s SSM CV FUJ I PACS [id number] 6.722 cm SSM CV FUJ I PACS [id number] 6.885 cm SSM CV FUJ I PACS LV stroke vol BP 29.908 mL SSM CV FUJI PACS LVIDs index 1.99 1.3 - 2.1 cm/m2 SSM CV FUJI PACS LV LVIDd index 2.41 2.2 - 3.0 cm/m2 SSM CV FUJI PACS Anatomical Region Laterality Modality Ultrasound Narrative 11/29/2022 10:43 AM CDT ?Study quality was poor ?Left??Ventricle: Left ventricle size is normal. Mildly increased wall thickness. Low normal systolic function with a visually estimated EF of 50 - 55%. Unable to assess wall motion. Grade I diastolic dysfunction with normal left atrial pressure. ?Right??Ventricle: Right ventricle size is normal. Low normal systolic function. ?Tricuspid??Valve: Trace regurgitation. The pulmonary artery systolic pressure is normal. ?No significant valvular abnormalities ?Pericardium: No pericardial effusion. Left Ventricle Left ventricle size is normal. Mildly increased wall thickness. Low normal systolic function with a visually estimated EF of 50 - 55%. Unable to assess wall motion. Grade I diastolic dysfunction with normal left atrial pressure. Right Ventricle Right ventricle size is normal. Low normal systolic function. Left Atrium Left atrium size is normal. Right Atrium Right atrium size is normal. Mitral Valve Valve structure is normal. No restricted motion. No regurgitation. No stenosis. Tricuspid Valve Valve structure is normal. No restricted motion. Trace regurgitation. The pulmonary artery systolic pressure is normal. No stenosis. Aortic Valve Valve structure is trileaflet. No restricted motion. No regurgitation. No stenosis. Pulmonic Valve Valve structure is normal. No restricted motion. No regurgitation. No stenosis. Main pulmonary artery size is normal. Ascending Aorta Normal sized sinus of Valsalva (aortic root) and ascending aorta. Pericardium No pericardial effusion. Study Details Study quality was good. A complete 2D, color Doppler, spectral Doppler and M- mode echocardiogram was performed. The apical and parasternal views were obtained. Procedure Note Raciel Borrero MD - 11/29/2022 ? ? Study quality was poor ? ? Left??Ventricle: Left ventricle size is normal. Mildly increased wallthickness. Low normal systolic function with a visually estimated EF of 50- 55%. Unable to assess wall motion. Grade I diastolic dysfunction withnormal left atrial pressure. ? ? Right??Ventricle: Right ventricle size is normal. Low normal systolicfunction. ? ? Tricuspid??Valve: Trace regurgitation. The pulmonary artery systolicpressure is normal. ? ? No significant valvular abnormalities ? ? Pericardium: No pericardial effusion. Neville Hewitt III, MD ECHO CUPID * (ABNORMAL) METANEPHRINES URINE FRACTIONATED (11/29/2022 8:31 AM CDT) Pathologist [facility] Metanephrine 24 Hour Urine 181 55 - 320 ug/d 12/03/2022 6:56 AM CDT [facility] ([facility]) Collection Time Hours 24 hr 12/03/2022 6:56 AM CDT [facility] ([facility]) Comment: Per 24h calculations are provided to aid interpretation for collections with a duration of 24 hours and an average daily urine volume. For specimens with notable deviations in collection time or volume, ratios of analytes to a corresponding urine creatinine concentration may assist in result interpretation. Volume 24 Hour Urine 1250 mL 12/03/2022 6:56 AM CDT [facility] ([facility]) Metanephrine Urine 145 ug/L 2022 6:56 AM CDT [facility] ([facility]) Normetanephrine Urine 1362 ug/L 12/03/2022 6:56 AM CDT [facility] ([facility]) Metanephrine Urine Ratio to STORES DESPATCH HAND 179 0 - 300 ug/g STORES DESPATCH HAND 12/03/2022 6:56 AM CDT [facility] ([facility]) Normetanephrine 24 Hour Urine 1702(H) 114 - 865 ug/d 12/03/2022 6:56 AM CDT [facility] ([facility]) Normetanephrine ug/g STORES DESPATCH HAND 1681(H) 0 - 400 ug/g STORES DESPATCH HAND 12/03/2022 6:56 AM CDT [facility] ([facility]) Interpretation Metanephrine Urine See Note 12/03/2022 6:56 AM CDT [facility] ([facility]) Comment: TEST INFORMATION: Metanephrines Fractionated, Urine Smaller increases in metanephrine and/or normetanephrine concentrations (less than two times the upper reference limit) usually are the result of physiological stimuli, drugs, or improper specimen collection. Essential hypertension is often associated with slight elevations (metanephrine less than 400 ug/d and normetanephrine less than 900 ug/d). Elevated concentrations may be due to intense physical activity, life-threatening illness, and drug interferences. Significant elevation of one or both metanephrines (three or more times the upper reference limit) is associated with an increased probability of a neuroendocrine tumor. Access complete set of age- and/or gender-specific reference intervals for this test in the [facility] Test Directory ([facility] [facility]). This test was developed and its performance characteristics determined by [facility]. It has not been cleared or approved by the US Food and Drug Administration. This test was performed in a CLIA certified laboratory and is intended for clinical purposes. Creatinine Urine 81 mg/dL 12/04/19 6:56 AM CDT [email or web address] ([facility]) Creatinine 24 Hour Urine 1012 800 - 2100 mg/d 12/03/2022 6:56 AM CDT [email or web address] ([facility]) Comment: Performed by [facility], [address] [place] [address] [email or web address], Power Milian MD, PHD, Lab. Director Urine URINE SPECIMEN COLLECTION, 24 HOURS / Unknown Timed Urine Volume Measurement / Unknown 11/29/2022 8:31 AM CDT 11/29/2022 9:31 AM CDT Ramya Witt MD LAB - URINE STEFANI MATHEUS ORDERABLES [email or web address]) [address] [place] [address], [facility] * CT ANGIO CHEST PULM EMBOLISM (11/27/2022 2:32 PM CDT) Only the most recent of2 resultswithin the time period is included. Anatomical Region Laterality Modality Chest Computed Tomogra phy 11/27/2022 5:19 PM CDT Impressions 11/27/2022 5:49 PM CDT Impression: 1.No evidence of acute pulmonary embolism. 2.Dependent consolidations within the right greater than left lower lobes likely represent sequela of aspiration given endoluminal debris within the bilateral bronchi with a component of atelectasis. 3.Trace bilateral pleural effusions. 4.Tracheostomy and percutaneous gastrostomy tubes are appropriately positioned. > Dictated by Leonardo Harris MD (residential assistant). I, Ashwin Alanisman, MD have personally reviewed and interpreted this examination/study. > Interpreting Provider: Ashwin Lopez MD on 11/27/2022 5:49 PM Narrative 11/27/2022 5:49 PM CDT PROCEDURE: ??CT ANGIO CHEST PULM EMBOLISM, DATE/TIME OF EXAM: ??11/27/2022 2:33 PM, LOCATION ??[facility] INDICATION: R00.0: Sinus tachycardia ADDITIONAL CLINICAL INFORMATION: Ordering Provider Reason For Exam: ??Evaluate for possible PE COMPARISON: None. TECHNIQUE: CT of the chest was performed following the uneventful administration of 75 mL of Isovue 370 intravenous contrast according to a pulmonary embolism protocol. Multiplanar reconstructions were created. Findings: Study Quality This examination for the diagnosis of pulmonary embolism is adequate. Pulmonary Arteries: No evidence of acute pulmonary embolism. Thoracic Vasculature: There is mild atherosclerotic calcification of the aortic arch. Lines/tubes: *Tracheostomy tube tip terminates in the proximal thoracic trachea. *Anterior approach percutaneous gastrostomy tube tip terminates within the gastric antrum. Lower Neck and Axillae: Normal. Lungs: Dependent consolidations within the right greater than left lower lobes likely represent sequela of aspiration given endoluminal debris within the bilateral bronchi. There is an additional component of atelectasis. No suspicious pulmonary nodules are identified. There is trace bilateral pleural effusions. Heart and Pericardium: The cardiac chambers are normal in size. No pericardial fluid or thickening is present. The coronary arteries are atherosclerotic. Mediastinum and Almita: No enlarged lymph nodes are present. Bones and Chest Wall: Bone windows demonstrate no suspicious lytic or blastic lesions. The visible osseous structures are intact. There is distal right clavicular deformity representing an old healed fracture. Upper Abdomen: Contrast is noted throughout the imaged colon. Otherwise, unremarkable. Procedure Note Dianne Lopez MD - 01/10/2023 PROCEDURE: CT ANGIO CHEST PULM EMBOLISM, DATE/TIME OF EXAM: 32:33 PM, LOCATION [facility] INDICATION: R00.0: Sinus tachycardia ADDITIONAL CLINICAL INFORMATION: Ordering Provider Reason For Exam: Evaluate for possible PE COMPARISON: None. TECHNIQUE: CT of the chest was performed following the uneventful administration of 75 mL of Isovue 370 intravenous contrast according toa pulmonary embolism protocol. Multiplanar reconstructions were created. Findings: Study Quality This examination for the diagnosis of pulmonary embolism is adequate. Pulmonary Arteries: No evidence of acute pulmonary embolism. Thoracic Vasculature: There is mild atherosclerotic calcification of the aortic arch. Lines/tubes: *Tracheostomy tube tip terminates in the proximal thoracic trachea. *Anterior approach percutaneous gastrostomy tube tip terminates withinthe gastric antrum. Lower Neck and Axillae: Normal. Lungs: Dependent consolidations within the right greater than left lower lobes likely represent sequela of aspiration given endoluminal debris withinthe bilateral bronchi. There is an additional component of atelectasis. No suspicious pulmonary nodules are identified. There is trace bilateral pleural effusions. Heart and Pericardium: The cardiac chambers are normal in size. No pericardial fluid orthickening is present. The coronary arteries are atherosclerotic. Mediastinum and Almita: No enlarged lymph nodes are present. Bones and Chest Wall: Bone windows demonstrate no suspicious lytic or blastic lesions. The visible osseous structures are intact. There is distal right clavicular deformity representing an old healed fracture. Upper Abdomen: Contrast is noted throughout the imaged colon. Otherwise, unremarkable. Impression: 1.No evidence of acute pulmonary embolism. 2.Dependent consolidations within the right greater than left lowerlobes likely represent sequela of aspiration given endoluminal debris withinthe bilateral bronchi with a component of atelectasis. 3.Trace bilateral pleural effusions. 4.Tracheostomy and percutaneous gastrostomy tubes are appropriately positioned. > Dictated by Leonardo Harris MD (residential assistant). IAshwin MD have personally reviewed and interpreted this examination/study. > Interpreting Provider: Ashwin Lopez MD on 11/27/2022 5:49 PM Ramya Witt MD CT ORDERABLES * PATHOLOGY TISSUE (11/26/2022 12:26 PM CDT) Only the most recent of3 resultswithin the time period is included. Case Report Surgical Pathology Report ? Case: [id number] ? Authorizing Provider: ??Alden Hurtado MD ?Collected: ? 11/26/2022 12:26 PM ? Ordering Location: ? [facility] ? Received: ?11/26/2022 03:05 PM ? Pathologist: ? Naa Meza MD ? Specimen: ?Nasal Contents, right nasal polyps ? 12/01/2022 9:19 AM [facility] Final Diagnosis Nasal contents, right polyp, excision (A): - Benign respiratory mucosa with mild acute and chronic inflammation 12/01/2022 9:19 AM [facility] Microscopic Description and Comment Sections demonstrate bone and polypoid fragments of sinonasal mucosa with lymphocytes, plasma cells and neutrophils. No eosinophils are appreciated. 12/01/2022 9:19 AM [facility] Clinical History The patient is a 62-year-old man with a history of dementia, seizures, chronic aspiration and Zenker's diverticulum status post diverticulectomy, chronic respiratory failure requiring tracheostomy who presented with blood in his trachea and was found to have epistaxis from a antrochoanal polyp. Operative procedure: Right maxillary antrostomy with polypectomy, and right anterior ethmoidectomy 12/01/2022 9:19 AM [facility] Gross Description The requisition and specimen(s) are identified with the patient's name Bi Tabor. Received in formalin, specimen A , are multiple marie, focally hemorrhagic, irregular tissue, cartilage, and bone fragments aggregating to 2.3 x 2.2 x 0.3 cm. Filtered through a biopsy bag and submitted in toto in A1 following decalcification./MF 12/01/2022 9:19 AM CDT [facility] Pathologist Location at [facility] 12/01/2022 9:19 AM CDT [facility] Disclaimer The performance characteristics of all immunohistochemical and indirect immunofluorescence stains (if any) cited in this report were determined by the Histopathology Laboratory of [facility]. Some of these tests were developed by our own laboratory and have not been cleared or approved by the US Food and Drug Administration. The FDA does not require this test to go through premarket FDA review. These tests are used for clinical purposes. They should not be regarded as investigational or for research. This laboratory is certified under the Clinical Laboratory Improvement Amendments (CLIA) as qualified to perform high complexity clinical laboratory testing. This case has been personally reviewed and interpreted by the attending (teaching) pathologist. 12/01/2022 9:19 AM CDT [facility] Embedded Images 12/01/2022 9:19 AM CDT [facility] Biopsy, Excision NASAL CONTENTS / Unknown 11/26/2022 12:26 PM CDT 11/26/2022 3:05 PM CDT Comment:Pre-op diagnosis: Polyp of right nasal cavity [J33.0] Alden Hurtado MD LAB - PATHOLOGY/CYTO LOGY ORDERABLES Performing Organization Address City/State/[facility] Co de Phone Number [facility] [address] [phone] * CT SINUS WWO CONTRAST (11/25/2022 6:36 AM CDT) Anatomical Region Laterality Modality Head Computed Tomogra phy 11/25/2022 7:58 AM CDT Impressions 11/25/2022 10:53 AM CDT IMPRESSION: 1.Complete opacification of the right maxillary sinus with Celexa extension of a soft tissue lesion/mass to the right nasal cavity and new extension posteriorly into the nasopharynx through an accessory right maxillary ostium. The nasopharyngeal component of the mass demonstrates some ulceration. There is new complete opacification of the right mastoid air cells and the right middle ear cavity, raising possibility of obstruction of the right eustachian tube, potentially by the above mentioned nasopharyngeal component. Findings are compatible with right antrochoanal polyp versus malignant neoplasm given the interval change and hemoptysis. Recommend ENT consultation with direct biliary dilatation and possible biopsy. 2.Scattered paranasal sinus mucosal thickening. These findings were discussed in detail with the patient's care provider, Dr. Kinsey by Dr. Yañez via telephone at 9:22 AM on 11/25/2022 with readback comprehension and verification. > Dictated by Christian Yañez DO (residential assistant). I, Jason Sanchez MD have personally reviewed and interpreted this examination/study. > Interpreting Provider: Jason Sanchez MD on 11/25/2022 10:53 AM Narrative 11/25/2022 10:53 AM CDT EXAMINATION: Computed tomography (CT) of the sinuses without contrast HISTORY: R04.2: Hemoptysis TECHNIQUE: CT of the paranasal sinuses was performed without and with contrast according to standard protocol. 80 mL of Isovue-370. COMPARISON: CT head without contrast dated 06/21/2022 FINDINGS: Redemonstrated complete opacification of the right maxillary sinus with mixed soft tissue lesion/mass extending into the right nasal cavity and ultimately the nasopharynx through an accessory ostium (series 4, image 77; series 5, image 59). There appears to be some ulceration in the nasopharyngeal component of the mass. These sinus outflow tracts on the right are largely obstructed. The right mastoid air cells and the right middle ear cavity are now completely opacified. This raises the possibility of obstruction of the right eustachian tube. On the left, the sinus outflow tracts (including frontal recesses, maxillary ostium, infundibulum, semilunar hiatus, middle meatus, sphenoethmoidal recesses and ostium) are patent. Paranasal sinus bony head are grossly intact. Expansion of the right maxillary sinus ostium is noted. There is thinning of the medial right maxillary sinus head and infundibulum. The ossific structures of the left paranasal sinuses are grossly normal. Bilateral cory bullosa of the middle nasal turbinates, larger on the left than the right. Minimal rightward deviation of the nasal septum. Poor dentition. Atherosclerosis of the carotid siphons. A chronic left lamina papyracea fracture is again noted. The orbits are otherwise unremarkable. Diffuse cerebral volume loss. Procedure Note Jason Sanchez MD - 11/25/2022 EXAMINATION: Computed tomography (CT) of the sinuses without contrast HISTORY: R04.2: Hemoptysis TECHNIQUE: CT of the paranasal sinuses was performed without and with contrast according to standard protocol. 80 mL of Isovue-370. COMPARISON: CT head without contrast dated 06/21/2022 FINDINGS: Redemonstrated complete opacification of the right maxillary sinus with mixed soft tissue lesion/mass extending into the right nasal cavity and ultimately the nasopharynx through an accessory ostium (series 4, image77; series 5, image 59). There appears to be some ulceration in the nasopharyngeal component of the mass. These sinus outflow tracts on the right are largely obstructed. The right mastoid air cells and the right middle ear cavity are now completely opacified. This raises the possibility of obstruction of the right eustachian tube. On the left, the sinus outflow tracts (including frontal recesses, maxillary ostium, infundibulum, semilunar hiatus, middle meatus, sphenoethmoidal recesses and ostium) are patent. Paranasal sinus bony head are grossly intact. Expansion of the right maxillary sinus ostium is noted. There is thinning of the medial right maxillary sinus head and infundibulum. The ossific structures of theleft paranasal sinuses are grossly normal. Bilateral cory bullosa of the middle nasal turbinates, larger on the left than the right. Minimal rightward deviation of the nasal septum. Poor dentition. Atherosclerosis of the carotid siphons. A chronic left lamina papyracea fracture is again noted. The orbits are otherwise unremarkable. Diffuse cerebral volume loss. IMPRESSION: 1.Complete opacification of the right maxillary sinus with Celexaextension of a soft tissue lesion/mass to the right nasal cavity and new extension posteriorly into the nasopharynx through an accessory right maxillary ostium. The nasopharyngeal component of the mass demonstrates some ulceration. There is new complete opacification of the right mastoid air cells and the right middle ear cavity, raising possibility ofobstruction of the right eustachian tube, potentially by the above mentioned nasopharyngeal component. Findings are compatible with rightantrochoanal polyp versus malignant neoplasm given the interval change andhemoptysis. Recommend ENT consultation with direct biliary dilatation and possible biopsy. 2.Scattered paranasal sinus mucosal thickening. These findings were discussed in detail with the patient's careprovider, Dr. Kinsey by Dr. Yañez via telephone at 9:22 AM on 11/25/2022 with readback comprehension and verification. > Dictated by Christian Yañez DO (residential assistant). IJason MD have personally reviewed and interpreted this examination/study. > Interpreting Provider: Jason Sanchez MD on 11/25/2022 10:53 AM Arthur Marinelli MD CT ORDERABLES * CT CHEST W CONTRAST (11/25/2022 6:36 AM CDT) Anatomical Region Laterality Modality Chest Computed Tomogra phy 11/25/2022 6:36 AM CDT Impressions 11/25/2022 11:20 AM CDT Impression: 1.Trace amount of debris in the right main bronchus, improved from previous examination with almost complete resolution of atelectasis in the right middle lobe with decreased right lower lobe atelectasis and decreased mediastinal shift. 2.Minimal debris is noted in the trachea proximal to the tracheostomy tube. > Dictated by Usman Arce MD, (residential assistant). I, Ashwin Lopez MD have personally reviewed and interpreted this examination/study. > Interpreting Provider: Ashwin Lopez MD on 11/25/2022 11:20 AM Narrative 11/25/2022 11:20 AM CDT PROCEDURE: ??CT CHEST W CONTRAST, DATE/TIME OF EXAM: ??11/25/2022 6:37 AM, LOCATION ??[facility] INDICATION: R04.2: Hemoptysis ADDITIONAL CLINICAL INFORMATION: Ordering Provider Reason For Exam: ??trach bleeding COMPARISON: CT chest 09/07/2022 TECHNIQUE: CT of the chest was performed following the uneventful administration of 100 mL of Isovue 370 intravenous contrast according to standard protocol. Findings: Lower Neck and Axillae: Tracheostomy tube terminates in the mid thoracic trachea. Heart and Pericardium: The cardiac chambers are normal in size. No pericardial fluid or thickening is present. The coronary arteries are atherosclerotic. Mediastinum and Almita: No enlarged lymph nodes are present. Lungs: Minimal debris is noted in the trachea proximal to the tracheostomy tube (image 10, series 4). Trace amount of debris seen within the right mainstem bronchus, significantly improved from previous examination. There is almost complete resolution of atelectasis in the right middle lobe compared to previous examination with decreased mediastinal shift. There is persistent but decreased atelectasis in the right lower lobe. No suspicious pulmonary nodules are identified. Trace left pleural effusion is present with dependent left lower lobe atelectasis. Thoracic Vasculature: No vascular abnormality is present. Bones and Chest Wall: Bone windows demonstrate no suspicious lytic or blastic lesions. The visible osseous structures are intact. Upper Abdomen: The visible portions of the upper abdominal organs are normal. Procedure Note Dianne Lopez MD - 11/25/2022 PROCEDURE: CT CHEST W CONTRAST, DATE/TIME OF EXAM: 11/25/2022 6:37 AM, LOCATION [facility] INDICATION: R04.2: Hemoptysis ADDITIONAL CLINICAL INFORMATION: Ordering Provider Reason For Exam: trach bleeding COMPARISON: CT chest 09/07/2022 TECHNIQUE: CT of the chest was performed following the uneventful administration of 100 mL of Isovue 370 intravenous contrast according to standard protocol. Findings: Lower Neck and Axillae: Tracheostomy tube terminates in the mid thoracic trachea. Heart and Pericardium: The cardiac chambers are normal in size. No pericardial fluid orthickening is present. The coronary arteries are atherosclerotic. Mediastinum and Almita: No enlarged lymph nodes are present. Lungs: Minimal debris is noted in the trachea proximal to the tracheostomy tube (image 10, series 4). Trace amount of debris seen within the rightmainstem bronchus, significantly improved from previous examination. There isalmost complete resolution of atelectasis in the right middle lobe compared to previous examination with decreased mediastinal shift. There ispersistent but decreased atelectasis in the right lower lobe. No suspiciouspulmonary nodules are identified. Trace left pleural effusion is present with dependent left lower lobe atelectasis. Thoracic Vasculature: No vascular abnormality is present. Bones and Chest Wall: Bone windows demonstrate no suspicious lytic or blastic lesions. The visible osseous structures are intact. Upper Abdomen: The visible portions of the upper abdominal organs are normal. Impression: 1.Trace amount of debris in the right main bronchus, improved fromprevious examination with almost complete resolution of atelectasis in the right middle lobe with decreased right lower lobe atelectasis and decreased mediastinal shift. 2.Minimal debris is noted in the trachea proximal to the tracheostomytube. > Dictated by Usman Arce MD, MD (residential assistant). I, Ashwin Lopez MD have personally reviewed and interpreted this examination/study. > Interpreting Provider: Ashwin Lopez MD on 11/25/2022 11:20 AM Arthur Marinelli MD CT ORDERABLES * (ABNORMAL) VALPROIC ACID FREE+TOTAL PANEL (10/30/2022 5:46 AM CDT) Only the most recent of4 resultswithin the time period is included. Valproic Acid % Free 21(H) 5 - 18 % 11/06/2022 12:30 PM CDT [email or web address] ([facility]) Comment: INTERPRETIVE INFORMATION: VPA-percent Free Valproic Acid, Total Therapeutic Range: 50-125 ug/mL Toxic: Greater than 150 ug/mL Valproic Acid, Free Therapeutic Range: 7-23 ug/mL Toxic: Greater than 30 ug/mL VPA-percent Free Therapeutic Range: 5-18 percent Free valproic acid may be important to monitor in patients with altered or unpredictable protein binding capacity because valproic acid exhibits variable, dose-dependent protein binding. Valproic acid is also subject to drug-drug interactions due to displacement of protein binding. Calculating percent free attempts to minimize differences in test cross-reactivity and may be useful in dose optimization. Adverse effects may include headache, somnolence and dizziness. Performed By: [employer] [address] [place] [id number] Agriculture Instructor: Power Milian MD, PhD Valproic Acid Free 16 7 - 23 ug/mL 11/06/2022 12:30 PM CDT [email or web address] ([facility]) Valproic Acid Total 76 50 - 125 ug/mL 11/06/2022 12:30 PM CDT [facility] ([facility]) Blood BLOOD SPECIMEN / Unknown Lab Venipuncture / Unknown 10/30/2022 5:46 AM CDT 10/30/2022 6:29 AM CDT Neha Palomino MD LAB - THERAPEUTIC DR DIAZ MONITORING ORDERABLES [facility]) [address] [place] [address], [facility] * SARS-COV-2 (COVID-19) RAPID (10/21/2022 5:37 PM CDT) Only the most recent of2 resultswithin the time period is included. COVID-19 PCR Not detected Not detected 10/22/19 6:20 PM CDT [facility] Microbiology SPECIMEN FROM NASOPHARYNGEAL STRUCTURE / Unknown Collection / Unknown 10/21/2022 5:37 PM CDT 10/21/2022 5:44 PM CDT Narrative [facility] - 10/21/2022 6:20 PM CDT The Cepheid Xpert Xpress SARS-COV-2 has been authorized by the Food and Drug Administration (FDA) under an Emergency Use Authorization (EUA). This test has been validated in accordance with the FDA's guidance document Policy for Diagnostic Testing in Laboratories Certified to perform High Complexity Testing under CLIA prior to Emergency Use Authorization for Coronavirus Disease-2019 during the Public Health Emergency issued on July 28, 2019. FDA independent review of this validation is pending. This test is only authorized for the duration of the time the declaration that circumstances exist justifying the authorization of emergency use of in vitro diagnostic tests for detection of SARS-COV-2 virus and/or diagnosis of COVID-19 infection under 564(b) (1) of the Act. 21 U.S.C. 360bbb-3 (b) (1), unless the authorization is terminated or revoked sooner. Fact Sheets for this EUA assay are available upon request. Ck Mccurdy MD LAB - MICROBIO LOGY ORDERABLES [facility] [address] [address], [facility] [phone] * HEPATITIS C AB SCREEN RFLX NAAT QUANT (09/01/2022 2:05 AM CDT) Only the most recent of3 resultswithin the time period is included. Pathologist [facility] Hepatitis C Antibody Non-react phan Non-reac tive 09/01/2022 3:09 AM CDT [facility] Comment:Hepatitis C Antibody screen indicates no serologic [...] Abarca MD LAB - CHEMISTRY [facility] [address] [address], [facility] [phone] * HIV-1 HIV-2 ANTIBODY + HIV P24 AG PANEL (09/01/2022 2:05 AM CDT) [facility] HIV Antigen/Antibod y 1 & 2 Non-reacti ve Non-react phan 09/01/2022 3:09 AM CDT [facility] Comment:No Laboratory eviden ce of HIV infection. Blood BLOOD SPECIMEN / Unknown Venipuncture / Unknown 09/01/2022 2:05 AM CDT 09/01/2022 2:15 AM CDT Artemio Abarca MD LAB - CHEMISTRY [facility] [address] [address], [facility] [phone] * ECHO COMPLETE (08/30/2022 4:19 PM CDT) Only the most recent of4 resultswithin the time period is included. Anatomical Region Laterality Modality Chest Echo 08/30/2022 3:41 PM CDT Narrative Procedure Note Binta George MD - 08/31/2022 Artemio Abarca MD ECHOCARDIOGRAPHY RAD IANT * HEMOGLOBIN A1C (08/29/2022 5:37 AM CDT) Only the most recent of5 resultswithin the time period is included. Hemoglobin A1c 4.4 <=5.6 % 08/29/2022 11:42 AM CDT [facility] Estimated Average Glucose 80 mg/dL 08/29/2022 11:42 AM CDT [facility] Comment: HbA1c Interpretation: Normal : < 5.7% Pre-diabetes: 5.7-6.4% Diabetes: Equal to or greater than 6.5% Test results diagnostic of diabetes should be repeated for confirmation. Treatment target values recommended by ADA and other clinical organizations should be used to evaluate metabolic control in patients. Reference: [place] [employer], Standards of Care in Diabetes -2020 In patients 70 years and older consider HbA1c target range of 7.0-7.5% (Reference: Lukas Matamoros, et al. JAMDA. 2012) The Sebia assay for the measurement of HbA1c is a National Glycohemoglobin Standardization Program (NGSP) certified method. Blood BLOOD SPECIMEN / Unknown Venipuncture / Unknown 08/29/2022 5:37 AM CDT 08/29/2022 5:52 AM CDT Hawk Salmon [employer] OPERATOR-LEAD PY[employer]ON DEVELOPER LAB - CHEMISTRY OR DERABLES [facility] [address] [place] [address], [facility] [phone] * XR ABDOMEN KUB PORTABLE (08/28/2022 7:12 PM CDT) Only the most recent of8 resultswithin the time period is included. Anatomical Region Laterality Modality Abdomen Radiographic Adan ging 08/29/2022 6:13 AM CDT Narrative 08/29/2022 12:30 PM CDT PROCEDURE: ??XR ABDOMEN KUB PORTABLE, DATE/TIME OF EXAM: ??08/28/2022 7:12 PM, LOCATION ??[facility] INDICATION: Z86.73: History of stroke E46: Protein-calorie malnutrition, unspecified severity ([facility]/HCC) ADDITIONAL CLINICAL INFORMATION: Ordering Provider Reason For Exam: ??confirm G tube COMPARISON: CT chest abdomen pelvis from 06/28/2022. FINDINGS/IMPRESSION: A G-tube is seen in the mid abdomen. Large volume right pleural effusion with associated atelectasis. Nonobstructive bowel gas pattern. Report dictated by Nash Arreola MD (residential assistant). Shane Thomason DO have personally reviewed and interpreted this examination/study. > Interpreting Provider: Shane Mckenzie DO on 08/29/2022 12:30 PM Procedure Note Shane Mckenzie DO - 08/29/2022 PROCEDURE: XR ABDOMEN KUB PORTABLE, DATE/TIME OF EXAM: 08/28/2022 7:12PM, LOCATION [facility] INDICATION: Z86.73: History of stroke E46: Protein-calorie malnutrition, unspecified severity ([facility]/HCC) ADDITIONAL CLINICAL INFORMATION: Ordering Provider Reason For Exam: confirm G tube COMPARISON: CT chest abdomen pelvis from 06/28/2022. FINDINGS/IMPRESSION: A G-tube is seen in the mid abdomen. Large volume right pleural effusion with associated atelectasis. Nonobstructive bowel gas pattern. Report dictated by Nash Arreola MD (residential assistant). Shane Thomason DO have personally reviewed and interpreted this examination/study. > Interpreting Provider: Shane Mckenzie DO on 08/29/2022 12:30 PM Ilir Mckenzie MD DIAGNOSTIC IMAGING O RDERABLES * CT CHEST WO CONTRAST (08/16/2022 2:29 PM CDT) Anatomical Region Laterality Modality Chest Computed Tomogra phy 08/16/2022 2:54 PM CDT Impressions 08/16/2022 3:24 PM CDT Impression 1. There is debris seen in the right mainstem bronchus associated with atelectasis of the mid and lower lobes of the right lung. Bilateral lower lobe ground glass opacities are seen, suggestive of aspiration. Bilateral pleural effusions, right greater than left, with associated mild compressive atelectasis in the left lower lobe. Report dictated by Flavoi Stover MD (residential assistant). I, Bebo Kuo MD have personally reviewed and interpreted this examination/study. > Interpreting Provider: Bebo Kuo MD on 08/16/2022 3:24 PM Narrative 08/16/2022 3:24 PM CDT Procedure Information DATE: 08/16/2022 2:30 PM EXAMINATION: Computed tomography (CT) of the chest without contrast TECHNIQUE: CT of the chest was performed without contrast according to standard protocol. Clinical Information HISTORY: R91.8: Opacity of lung on imaging study COMPARISON: CT chest PE with abdomen 06/28/2022. Findings Evaluation of visceral and vascular structures is degraded due to lack of intravenous contrast administration. Lines/tubes: *Tracheostomy tube projects into the midthoracic trachea Pulmonary Parenchyma and Airways/pleural space: There is endoluminal filling defect in the right descending bronchus associated with atelectasis of the right mid and lower lobes. Bilateral pleural effusions, right greater than left, with associated mild compressive atelectasis in the left side. ??There are ground glass opacities in the bilateral lower lobes that may be secondary to aspiration and/or retained fluid. Heart and Pericardium: The cardiac chambers are normal in size. No pericardial fluid or thickening is present. There are calcifications of the coronary arteries. Mediastinum and Almita: No mediastinal mass is present. No enlarged lymph nodes are present. The mediastinal structures are shifted to the right Thoracic Vessels: Atherosclerotic disease of the thoracic aorta Bones and Chest Wall: Bone windows demonstrate no suspicious lytic or blastic lesions. The visible osseous structures are intact. Upper Abdomen: Multiple subcentimeter calculi are noted within the left kidney. The gallbladder surgically absent. The visible portions of the liver, spleen, pancreas, adrenal glands, stomach, and bowel are normal. Additional findings: None. Procedure Note Bebo Kuo MD - 08/16/2022 Procedure Information DATE: 08/16/2022 2:30 PM EXAMINATION: Computed tomography (CT) of the chest without contrast TECHNIQUE: CT of the chest was performed without contrast according to standard protocol. Clinical Information HISTORY: R91.8: Opacity of lung on imaging study COMPARISON: CT chest PE with abdomen 06/28/2022. Findings Evaluation of visceral and vascular structures is degraded due to lackof intravenous contrast administration. Lines/tubes: *Tracheostomy tube projects into the midthoracic trachea Pulmonary Parenchyma and Airways/pleural space: There is endoluminal filling defect in the right descending bronchus associated with atelectasis of the right mid and lower lobes. Bilateral pleural effusions, right greater than left, with associatedmild compressive atelectasis in the left side. There are ground glassopacities in the bilateral lower lobes that may be secondary to aspiration and/or retained fluid. Heart and Pericardium: The cardiac chambers are normal in size. No pericardial fluid orthickening is present. There are calcifications of the coronary arteries. Mediastinum and Almita: No mediastinal mass is present. No enlarged lymph nodes are present. The mediastinal structures are shifted to the right Thoracic Vessels: Atherosclerotic disease of the thoracic aorta Bones and Chest Wall: Bone windows demonstrate no suspicious lytic or blastic lesions. The visible osseous structures are intact. Upper Abdomen: Multiple subcentimeter calculi are noted within the left kidney. The gallbladder surgically absent. The visible portions of the liver,spleen, pancreas, adrenal glands, stomach, and bowel are normal. Additional findings: None. Impression 1. There is debris seen in the right mainstem bronchus associated with atelectasis of the mid and lower lobes of the right lung. Bilaterallower lobe ground glass opacities are seen, suggestive of aspiration.Bilateral pleural effusions, right greater than left, with associated mild compressive atelectasis in the left lower lobe. Report dictated by Flavio Stover MD (residential assistant). I, Bebo Kuo MD have personally reviewed and interpreted this examination/study. > Interpreting Provider: Bebo Kuo MD on 33:24 PM Will Butler MD CT ORDERABLES * ARTERIAL LINE PERFORMABLE (07/15/2022 9:55 AM MEDICAL CLAIMS SPECIALIST) Narrative AndresNima carter II, DO - 07/15/2022 9:55 AM MEDICAL CLAIMS SPECIALIST Nima Campos II, DO ? 07/15/2022 11:16 AM Arterial Line Placement Procedure Note Patient Location: OR. Procedure: Arterial Line ([id number]). Procedure Section ?? Indications: blood sampling needed and continuous blood pressure monitoring. Consent: a time out was performed for patient safety, informed consent was obtained for the procedure, including sedation and informed consent was obtained for the procedure. Skin Prep: Chloraprep. Site: radial. Site Identification: palpation. Sterile Technique: cap, mask, sterile gloves and small sterile fenestrated drape. Gauge: 20. Seldinger Technique Used? ??Yes Number of Attempts: 1. Line Secured with: Tegaderm (CHG tegaderm). Procedure Tolerance: performed while patient under general anesthesia. Events: none. Procedure Start Time: 07/15/2022 7:59 AM. Staff Section ? Anesthesia Provider: Nima Campos II, DO, Performed the procedure Nima Campos II, DO GENERAL ANESTH ESIA ORDERABLES * CULTURE BRONCHIAL WASHING+GRAM STAIN (07/05/2022 10:31 PM MEDICAL CLAIMS SPECIALIST) Culture No growth JELLY 07/07/2022 3:52 PM MEDICAL CLAIMS SPECIALIST [facility] Gram Stain Rare Polymorphonuclear cells 07/07/2022 3:52 PM MEDICAL CLAIMS SPECIALIST [facility] Gram Stain Rare Squamous epithelial cells 07/07/2022 3:52 PM MEDICAL CLAIMS SPECIALIST [facility] Gram Stain No organisms seen 023 3:52 PM [facility] Microbiology SPECIMEN FROM LUNG OBTAINED BY BRONCHIAL WASHING PROCEDURE / Unknown Collection / Unknown 07/05/2022 10:31 PM MEDICAL CLAIMS SPECIALIST 07/05/2022 10:50 PM MEDICAL CLAIMS SPECIALIST Ramya Witt MD LAB - MICROBIOL OGY ORDERABLES [facility] [address] [place] [address], [facility] [phone] * VANCOMYCIN LEVEL RANDOM (07/04/2022 1:45 AM MEDICAL CLAIMS SPECIALIST) Only the most recent of3 resultswithin the time period is included. Vancomycin Random 22.0 Therapeutic Ranges not established for random specimens ug/mL 07/04/2022 2:20 AM [facility] Blood BLOOD SPECIMEN / Unknown Venipuncture / Unknown 07/04/2022 1:45 AM MEDICAL CLAIMS SPECIALIST 07/04/2022 1:52 AM MEDICAL CLAIMS SPECIALIST [facility] - 07/04/2022 2:20 AM MEDICAL CLAIMS SPECIALIST See institution protocol. Artur Mcgraw MD LAB - CHEMISTRY ORD ERABLES [facility] [address] [place] [address], [facility] [phone] * (ABNORMAL) URINALYSIS W/MICROSCOPIC NO CULTURE (07/02/2022 11:37 AM MEDICAL CLAIMS SPECIALIST) Only the most recent of7 resultswithin the time period is included. Color UA Yellow Straw, Yellow 07/02/2022 11:56 AM [facility] Clarity UA Clear Clear 07/02/2022 11:56 AM [facility] Specific [place] UA 1.006 1.005 - 1.030 07/02/2022 11:56 AM [facility] pH UA 7.0 5.0 - 8.0 pH 07/02/2022 11:56 AM [facility] Protein UA 1+(A) Negative 07/02/2022 11:56 AM [facility] Glucose UA Negative Negative 07/02/2022 11:56 AM [facility] Ketone UA Negative Negative 07/02/2022 11:56 AM [facility] Bilirubin UA Negative Negative 07/02/2022 11:56 AM [facility] Blood UA Negative Negative 07/02/2022 11:56 AM [facility] Nitrite UA Negative Negative 07/02/2022 11:56 AM [facility] Leukocyte Esterase 3+(A) Negative 07/02/2022 11:56 AM [facility] Urobilinogen UA Negative Negative mg/dL 07/02/2022 11:56 AM [facility] RBC UA 3-5 None Seen, 0-2, 3-5 /HPF 07/02/2022 11:56 AM [facility] WBC UA 6-10(A) None Seen, 0-5 /HPF 07/02/2022 11:56 AM [facility] Bacteria UA Trace(A) None /HPF 07/02/2022 11:56 AM [facility] Squamous Epithelial Cells UA 0-2 None Seen, 0-2, 3-5 /HPF 07/02/2022 11:56 AM [facility] Yeast Budding UA Few(A) None /HPF 07/02/19 11:56 AM [facility] Urine URINE SPECIMEN OBTAINED BY CLEAN CATCH PROCEDURE / Unknown Collection / Unknown 07/02/2022 11:37 AM MEDICAL CLAIMS SPECIALIST 07/02/2022 11:44 AM MEDICAL CLAIMS SPECIALIST [facility] - 07/02/2022 11:56 AM MEDICAL CLAIMS SPECIALIST Artur Mcgraw MD LAB - URINALYSIS OR DERABLES Performing Organization Address City/[facility]/ZIP Co de Phone Number [address] [address], [facility] [phone] * SODIUM URINE RANDOM (07/02/2022 11:37 AM MEDICAL CLAIMS SPECIALIST) Only the most recent of2 resultswithin the time period is included. Sodium Urine 40 Not Established mmol/L 07/02/2022 12:07 PM [facility] Urine URINE SPECIMEN OBTAINED BY CLEAN CATCH PROCEDURE / Unknown Collection / Unknown 07/02/2022 11:37 AM MEDICAL CLAIMS SPECIALIST 07/02/2022 11:44 AM MEDICAL CLAIMS SPECIALIST Artur Mcgraw MD LAB - URINE ETHICS INSTRUCTOR RY ORDERABLES Performing Organization Address [facility]/ZIP Co de Phone Number [address] [address], [facility] [phone] * CREATININE URINE RANDOM (07/02/2022 11:37 AM MEDICAL CLAIMS SPECIALIST) Only the most recent of2 resultswithin the time period is included. Creatinine Urine 26 Not Established mg/dL 07/02/2022 12:07 PM MEDICAL CLAIMS SPECIALIST [facility] Urine URINE SPECIMEN OBTAINED BY CLEAN CATCH PROCEDURE / Unknown Collection / Unknown 07/02/2022 11:37 AM MEDICAL CLAIMS SPECIALIST 07/02/2022 11:44 AM MEDICAL CLAIMS SPECIALIST Artur Mcgraw MD LAB - URINE ETHICS INSTRUCTOR RY ORDERABLES [place] [address] [place] [address], [facility] [phone] * US PELVIS LIMITED (07/01/2022 3:00 PM MEDICAL CLAIMS SPECIALIST) Anatomical Region Laterality Modality Pelvis Ultrasound 07/01/2022 3:19 PM MEDICAL CLAIMS SPECIALIST Narrative 07/02/2022 8:36 AM MEDICAL CLAIMS SPECIALIST PROCEDURE: ??US PELVIS LIMITED, DATE/TIME OF EXAM: ??07/01/2022 2:23 PM, LOCATION ??[facility] INDICATION: Z86.73: History of CVA (cerebrovascular accident) ADDITIONAL CLINICAL INFORMATION: Ordering Provider Reason For Exam: ??left thigh rim enhancing lesion - rule out abscess COMPARISON: CT chest/abdomen/pelvis 06/28/2022 TECHNIQUE: Cooper scale ultrasound imaging of the left groin soft tissues was performed. FINDINGS/IMPRESSION: Exam of the upper medial left thigh demonstrates a fluid collection measuring 9.9 x 2.8 x 3.0 cm. Low level echoes within this may be artifactual, however debris may have a similar appearance. Although there is no significant vascularity of the margin of the fluid collection, infection is not excluded. This collection may correspond to the partially imaged collection on CT done on 06/28/2022. Report dictated by Ashu Welch M.D. (residential assistant) IRachel MD have personally reviewed and interpreted this examination/study. > Interpreting Provider: Rachel Phillips MD on 07/02/2022 8:36 AM Procedure Note Rachel Phillips MD - 07/02/2022 PROCEDURE: US PELVIS LIMITED, DATE/TIME OF EXAM: 07/01/2022 2:23 PM, LOCATION [facility] INDICATION: Z86.73: History of CVA (cerebrovascular accident) ADDITIONAL CLINICAL INFORMATION: Ordering Provider Reason For Exam: left thigh rim enhancing lesion -rule out abscess COMPARISON: CT chest/abdomen/pelvis 06/28/2022 TECHNIQUE: Cooper scale ultrasound imaging of the left groin soft tissueswas performed. FINDINGS/IMPRESSION: Exam of the upper medial left thigh demonstrates a fluid collection measuring 9.9 x 2.8 x 3.0 cm. Low level echoes within this may be artifactual, however debris may have a similar appearance. Althoughthere is no significant vascularity of the margin of the fluid collection, infection is not excluded. This collection may correspond to thepartially imaged collection on CT done on 06/28/2022. Report dictated by Ashu Welch M.D. (residential assistant) IRachel MD have personally reviewed and interpreted this examination/study. > Interpreting Provider: Rachel Phillips MD on 07/02/2022 8:36 AM Artur Mcgraw MD US ORDERABLES * CULTURE BLOOD FUNGUS (06/30/2022 8:45 PM MEDICAL CLAIMS SPECIALIST) Pathologist [facility] Culture No fungus isolated JELLY 08/09/2022 2:06 PM CDT [facility] Blood PERIPHERAL BLOOD / Unknown Lab Venipuncture / Unknown 06/30/2022 8:45 PM MEDICAL CLAIMS SPECIALIST 06/30/2022 9:20 PM MEDICAL CLAIMS SPECIALIST Artur Mcgraw MD LAB - MICROBIOLOGY ORDERABLES [facility] [address] [place] [address], [facility] [phone] * RESPIRATORY PANEL WITH SARS-COV-2 BY PCR (ST[facility]) (06/30/2022 7:52 PM MEDICAL CLAIMS SPECIALIST) Adenovirus PCR Not detected Not detected 07/01/2022 12:14 AM MEDICAL CLAIMS SPECIALIST [facility] Coronavirus 229E PCR Not detected Not detected 07/01/2022 12:14 AM MEDICAL CLAIMS SPECIALIST [facility] Coronavirus HKU1 PCR Not detected Not detected 07/01/2022 12:14 AM MEDICAL CLAIMS SPECIALIST [facility] Coronavirus NL63 PCR Not detected Not detected 07/01/2022 12:14 AM MEDICAL CLAIMS SPECIALIST [facility] Coronavirus OC43 PCR Not detected Not detected 07/01/2022 12:14 AM MEDICAL CLAIMS SPECIALIST [facility]CRO[facility] COVID-19 PCR Not detected Not detected 07/01/2022 12:14 AM MEDICAL CLAIMS SPECIALIST [facility] MICRO[facility]OLOG[facility] Human Metapneumovirus PCR Not detected Not detected 07/01/2022 12:14 AM MEDICAL CLAIMS SPECIALIST [facility] MI[facility] Human Rhinovirus/Enterov irus PCR Not detected Not detected 07/01/2022 12:14 AM MEDICAL CLAIMS SPECIALIST [facility] MICRO[facility] Influenza A PCR Not detected Not detected 07/01/2022 12:14 AM MEDICAL CLAIMS SPECIALIST [facility] [facility] Influenza B PCR Not detected Not detected 07/01/2022 12:14 AM MEDICAL CLAIMS SPECIALIST [facility] Parainfluenza Virus 1 PCR Not detected Not detected 07/01/2022 12:14 AM MEDICAL CLAIMS SPECIALIST [facility]CRO[facility] Parainfluenza Virus 2 PCR Not detected Not detected 07/01/2022 12:14 AM MEDICAL CLAIMS SPECIALIST [facility]CRO[facility] Parainfluenza Virus 3 PCR Not detected Not detected 07/01/2022 12:14 AM MEDICAL CLAIMS SPECIALIST [facility]CRO[facility] Parainfluenza Virus 4 PCR Not detected Not detected 07/01/2022 12:14 AM MEDICAL CLAIMS SPECIALIST [facility] Respiratory Syncytial Virus PCR Not detected Not detected 07/01/2022 12:14 AM MEDICAL CLAIMS SPECIALIST [facility]CRO[facility] Bordetella parapertussis PCR Not detected Not detected 07/01/2022 12:14 AM MEDICAL CLAIMS SPECIALIST [facility] Bordetella pertussis PCR Not detected Not detected 07/01/2022 12:14 AM MEDICAL CLAIMS SPECIALIST [facility] Chlamydia pneumoniae PCR Not detected Not detected 07/01/2022 12:14 AM MEDICAL CLAIMS SPECIALIST [facility] Mycoplasma pneumoniae PCR Not detected Not detected 07/01/2022 12:14 AM [facility]CRO[facility] Microbiology SPECIMEN FROM NASOPHARYNGEAL STRUCTURE / Unknown Collection / Unknown 06/30/2022 7:52 PM MEDICAL CLAIMS SPECIALIST 06/30/2022 7:55 PM MEDICAL CLAIMS SPECIALIST Narrative [facility] - 07/01/2022 12:14 AM MEDICAL CLAIMS SPECIALIST This nucleic amplification assay has received FDA authorization via the [employer]. Artur Mcgraw MD LAB - MICROBIOLOGY ORDERABLES [facility] [address] [place] [address], [facility] [phone] * VAS RIGHT VENOUS DUPLEX UE (06/30/2022 3:22 PM MEDICAL CLAIMS SPECIALIST) Anatomical Region Laterality Modality Upper Extremity Intravascular Ul trasound 06/30/2022 2:44 PM MEDICAL CLAIMS SPECIALIST Narrative Procedure Note Shane Doyle MD - 06/30/2022 Artur Mcgraw MD VASCULAR LAB ORDERA BLES * (ABNORMAL) HEPATIC FUNCTION PANEL (06/30/2022 10:39 AM MEDICAL CLAIMS SPECIALIST) Only the most recent of4 resultswithin the time period is included. Protein Total 6.2 6.0 - 8.3 g/dL 023 1:57 PM [facility] Albumin 2.2(L) 3.4 - 5.0 g/dL 06/30/2022 1:57 PM [facility] Bilirubin Total 0.3 0.2 - 1.2 mg/dL 05/2022 1:57 PM [facility] Bilirubin Conjugated 0.2 0.1 - 0.5 mg/dL 06/30/2022 1:57 PM [facility] Bilirubin Unconjugated 0.1 Unconjugated Bilirubin is a calculated value: Reference ranges have not been established. mg/dL 06/30/2022 1:57 PM [facility] Alkaline Phosphatase 65 40 - 150 U/L 06/30/2022 1:57 PM [facility] ALT 5 5 - 55 U/L 06/30/2022 1:57 PM [facility] AST 13 5 - 34 U/L 06/30/2022 1:57 PM [facility] Albumin/Globulin Ratio 0.6(L) 1.1 - 2.3 06/30/2022 1:57 PM [facility] Blood BLOOD SPECIMEN / Unknown Lab Venipuncture / Unknown 06/30/2022 10:39 AM MEDICAL CLAIMS SPECIALIST 06/30/2022 10:45 AM MEDICAL CLAIMS SPECIALIST Artur Mcgraw MD LAB - CHEMISTRY ORD ERABLES [facility] [address] [place] [address], [facility] [phone] * (ABNORMAL) CULTURE MRSA (06/29/2022 12:42 PM MEDICAL CLAIMS SPECIALIST) Culture Growth of Staphylococcus aureus methicillin-resist ant (MRSA)(A) 06/30/2022 9:39 PM MEDICAL CLAIMS SPECIALIST [facility] Microbiology SPECIMEN FROM NASAL FOSSAE / Unknown Collection / Unknown 06/29/2022 12:42 PM MEDICAL CLAIMS SPECIALIST 06/29/2022 12:50 PM MEDICAL CLAIMS SPECIALIST Narrative [facility] - 06/30/2022 9:39 PM MEDICAL CLAIMS SPECIALIST Methicillin-resistant Staphylococci (MRSA) are resistant to all currently available beta-lactam antibiotics with the exception of the newer cephalosporins with anti-MRSA activity. Contact precautions required. Artur Mcgraw MD LAB - MICROBIOLOGY ORDERABLES Performing Organization Address [facility] Co de Phone Number [facility] [address] [place] [address], [facility] [phone] * LEGIONELLA ANTIGEN URINE (06/28/2022 3:48 AM MEDICAL CLAIMS SPECIALIST) Legionella Antigen Urine Negative Negative 06/28/2022 10:05 AM MEDICAL CLAIMS SPECIALIST [facility] Urine URINE / Unknown Collection / Unknown 06/28/2022 3:48 AM MEDICAL CLAIMS SPECIALIST 06/28/2022 3:52 AM MEDICAL CLAIMS SPECIALIST Narrative [facility] - 06/28/2022 10:05 AM MEDICAL CLAIMS SPECIALIST This assay detects Legionella pneumophila serogroup one (1) antigen. A negative test result does not rule out the possibility of Legionella infection due to other serogroups or species of Legionella. A positive result may indicate a recent or remote infection with serogroup 1. Yasmani Vigil MD LAB - MICROBIOLOGY O RDERABLES Performing Organization Address [facility]/ZIP Co de Phone Number [facility] [address] [place] [address], [facility] [phone] * TROPONIN I (06/28/2022 1:41 AM MEDICAL CLAIMS SPECIALIST) Only the most recent of16 resultswithin the time period is included. Troponin I <0.010 <0.032 ng/mL 06/28/2022 2:16 AM MEDICAL CLAIMS SPECIALIST [facility] Blood BLOOD SPECIMEN / Unknown Venipuncture / Unknown 06/28/2022 1:41 AM MEDICAL CLAIMS SPECIALIST 06/28/2022 1:46 AM MEDICAL CLAIMS SPECIALIST Arthur Marinelli MD LAB - CHEMISTRY ORD ERABLES [facility] [address] [place] [address], [facility] [phone] * CT CHEST PE W ABD PELVIS W CONT (06/28/2022 1:05 AM MEDICAL CLAIMS SPECIALIST) Only the most recent of2 resultswithin the time period is included. Anatomical Region Laterality Modality Chest, Abdomen, Pelvis Computed Tomography 06/28/2022 1:52 AM MEDICAL CLAIMS SPECIALIST Impressions 06/28/2022 8:38 AM MEDICAL CLAIMS SPECIALIST Impression: 1.No evidence of acute pulmonary embolism. 2.Volume loss and confluent consolidation in the right lower lobe with areas of hypoenhancement and surrounding septal thickening and ground glass opacities consistent with pneumonia, increased compared prior exam. 3.There is a 2.6 cm rim-enhancing round area involving the left proximal thigh hamstring musculature which is nearly isodense compared to muscle, only partially imaged. This may represent hematoma although given the rim enhancement, infected collection cannot be excluded. 4.Questionable subtle hypoattenuation within the left lateral pelvic/thigh musculature can be seen in the setting of muscle edema or myonecrosis. 5.Noncalcified atherosclerotic plaque in the left superficial femoral artery with resultant focal moderate to high-grade stenosis. 6.Moderate distention of the urinary bladder is noted, otherwise unremarkable. > Dictated by Alexandro Kelsey MD (residential assistant) Ashwin Thomason MD have personally reviewed and interpreted this examination/study. > Interpreting Provider: Ashwin Lopez MD on 06/28/2022 8:38 AM Narrative 06/28/2022 8:38 AM MEDICAL CLAIMS SPECIALIST PROCEDURE: ??CT CHEST PE W ABD PELVIS W CONT, DATE/TIME OF EXAM: ??06/28/2022 1:26 AM, LOCATION ??[facility] INDICATION: R09.02: Hypoxia ADDITIONAL CLINICAL INFORMATION: Ordering Provider Reason For Exam: ??pe? aaox0, hypoxic, from nursing facility. Want to rule out PE but also has g tube, c/f intrabdominal abscess? COMPARISON: 06/12/2022 TECHNIQUE: CT of the chest was performed following the uneventful administration of 75 mL of Isovue 370 intravenous contrast according to a pulmonary embolism protocol. CT of the abdomen and pelvis was also performed during the portal venous phase according to standard protocol. Multiplanar reconstructions were created. Findings: Chest: Study Quality This examination for the diagnosis of pulmonary embolism is adequate. Pulmonary Arteries: No evidence of acute pulmonary embolism. Thoracic Vasculature: No vascular abnormality is present. Lower Neck and Axillae: The thyroid appears unremarkable. There is no axillary lymphadenopathy. Mediastinum and Almita: The trachea is slightly right of midline otherwise patent. Prominent lymph nodes in the right hilar region and the subcarinal region. Heart and Pericardium: The heart size is normal. There is no pericardial thickening or effusion. Coronary artery and trace aortic arch calcifications are noted. Lungs: Volume loss and confluent consolidation in the right lower lobe with areas of hypoenhancement and surrounding septal thickening and ground glass opacities, slightly increased compared prior exam, new compared to 05/30/2022, consistent with pneumonia. There is peribronchovascular thickening involving the right upper and lower lobe bronchi. Mild left basilar and dependent atelectasis. Multiple subcentimeter pulmonary nodules are seen on the right, for reference there is a 3 mm sub-solid pulmonary nodule in the lateral aspect of the right lower lobe (series 7 image 56) new compared to prior exam. ??There is no pneumothorax. Nonspecific hyperattenuation at the posterior aspect of the right lower lobe. Abdomen/pelvis: Hepatobiliary: There is a 1.1 cm arterially enhancing observation in the right hepatic lobe (series 6 image 32) unchanged compared to prior exam, may represent a hemangioma. The other previously seen hyperenhancing observations are not as well visualized on this exam likely due to the phase of the exam. Otherwise the liver enhances homogeneously without evidence of intra or extrahepatic biliary dilatation. The gallbladder is not distended. There is no gallbladder wall thickening or pericholecystic fluid. No radiopaque gallstones are seen. Spleen: Subcentimeter hypoattenuating lesion at the superior aspect of the spleen, too small to characterize but likely representing a simple cyst. Otherwise the spleen appears unremarkable. Pancreas: Pancreas enhances homogeneously. There is slight prominence of the pancreatic duct, within normal limits. No significant peripancreatic fat stranding. Adrenals: Bilateral adrenal glands appear unremarkable. Kidneys: Bilateral kidneys enhance symmetrically without evidence of hydronephrosis. No radiopaque renal calculi are seen. No significant perinephric fat stranding. Gastrointestinal: A percutaneous gastrostomy tube with balloon are noted within the stomach. No abnormally dilated loops of small or large bowel. A nondilated retrocecal appendix is noted. Mesentery/Peritoneum/Retroperitoneum: There is no free intraperitoneal air. There is no significant mesenteric or retroperitoneal lymphadenopathy. No abscesses are visualized. Pelvis: The urinary bladder is moderately distended otherwise appears unremarkable. There is no free fluid in the pelvis. There is no pelvic lymphadenopathy. An enlarged heterogeneously enhancing prostate measuring approximately 4.7 cm in transverse dimension is noted. Nonspecific seminal vesicle calcifications are noted. Abdominal Vasculature: Atherosclerotic calcifications of the aorta and its branch vessels. Atherosclerotic disease involving the left superficial femoral artery with resultant moderate to high-grade stenosis (series 6 image 156). Calcified and noncalcified plaques are seen in the right subclavian and axillary artery. Diminutive opacification of the left vertebral artery. Bones: Mild multilevel degenerative changes are seen throughout the spine. Subcentimeter sclerotic lesion in the right superior pubic rami with benign features. Chronic deformity at the right distal clavicle. Chronic deformity at the mid sternum. Soft tissues: There is a 2.6 cm rim-enhancing lesion involving the left posterior proximal thigh musculature which is nearly isodense compared to muscle, partially imaged (image 176, series 6). Questionable subtle hypoattenuation within the left lateral pelvic/thigh musculature can be seen in the setting of muscle edema or myonecrosis (series 6 image 159-176). Subcutaneous edema in the soft tissues of the pelvis. Procedure Note Dianne Lopez MD - 06/28/2022 PROCEDURE: CT CHEST PE W ABD PELVIS W CONT, DATE/TIME OF EXAM:06/28/2022 1:26 AM, LOCATION [facility] INDICATION: R09.02: Hypoxia ADDITIONAL CLINICAL INFORMATION: Ordering Provider Reason For Exam: pe? aaox0, hypoxic, from nursing facility. Want to rule out PE but also has g tube, c/f intrabdominal abscess? COMPARISON: 06/12/2022 TECHNIQUE: CT of the chest was performed following the uneventful administration of 75 mL of Isovue 370 intravenous contrast according toa pulmonary embolism protocol. CT of the abdomen and pelvis was also performed during the portal venous phase according to standard protocol. Multiplanar reconstructions were created. Findings: Chest: Study Quality This examination for the diagnosis of pulmonary embolism is adequate. Pulmonary Arteries: No evidence of acute pulmonary embolism. Thoracic Vasculature: No vascular abnormality is present. Lower Neck and Axillae: The thyroid appears unremarkable. There is no axillary lymphadenopathy. Mediastinum and Almita: The trachea is slightly right of midline otherwise patent. Prominentlymph nodes in the right hilar region and the subcarinal region. Heart and Pericardium: The heart size is normal. There is no pericardial thickening oreffusion. Coronary artery and trace aortic arch calcifications are noted. Lungs: Volume loss and confluent consolidation in the right lower lobe withareas of hypoenhancement and surrounding septal thickening and ground glass opacities, slightly increased compared prior exam, new compared to 05/30/2022, consistent with pneumonia. There is peribronchovascular thickening involving the right upper and lower lobe bronchi. Mild left basilar and dependent atelectasis. Multiple subcentimeter pulmonarynodules are seen on the right, for reference there is a 3 mm sub-solid pulmonary nodule in the lateral aspect of the right lower lobe (series 7 image 56) new compared to prior exam. There is no pneumothorax. Nonspecific hyperattenuation at the posterior aspect of the right lower lobe. Abdomen/pelvis: Hepatobiliary: There is a 1.1 cm arterially enhancing observation in the right hepatic lobe (series 6 image 32) unchanged compared to prior exam, may representa hemangioma. The other previously seen hyperenhancing observations arenot as well visualized on this exam likely due to the phase of the exam. Otherwise the liver enhances homogeneously without evidence of intra or extrahepatic biliary dilatation. The gallbladder is not distended. Thereis no gallbladder wall thickening or pericholecystic fluid. No radiopaque gallstones are seen. Spleen: Subcentimeter hypoattenuating lesion at the superior aspect of thespleen, too small to characterize but likely representing a simple cyst.Otherwise the spleen appears unremarkable. Pancreas: Pancreas enhances homogeneously. There is slight prominence of the pancreatic duct, within normal limits. No significant peripancreatic fat stranding. Adrenals: Bilateral adrenal glands appear unremarkable. Kidneys: Bilateral kidneys enhance symmetrically without evidence ofhydronephrosis. No radiopaque renal calculi are seen. No significant perinephric fat stranding. Gastrointestinal: A percutaneous gastrostomy tube with balloon are noted within thestomach. No abnormally dilated loops of small or large bowel. A nondilated retrocecal appendix is noted. Mesentery/Peritoneum/Retroperitoneum: There is no free intraperitoneal air. There is no significant mesentericor retroperitoneal lymphadenopathy. No abscesses are visualized. Pelvis: The urinary bladder is moderately distended otherwise appearsunremarkable. There is no free fluid in the pelvis. There is no pelviclymphadenopathy. An enlarged heterogeneously enhancing prostate measuring approximately4.7 cm in transverse dimension is noted. Nonspecific seminal vesicle calcifications are noted. Abdominal Vasculature: Atherosclerotic calcifications of the aorta and its branch vessels. Atherosclerotic disease involving the left superficial femoral arterywith resultant moderate to high-grade stenosis (series 6 image 156).Calcified and noncalcified plaques are seen in the right subclavian and axillary artery. Diminutive opacification of the left vertebral artery. Bones: Mild multilevel degenerative changes are seen throughout the spine. Subcentimeter sclerotic lesion in the right superior pubic rami withbenign features. Chronic deformity at the right distal clavicle. Chronicdeformity at the mid sternum. Soft tissues: There is a 2.6 cm rim-enhancing lesion involving the left posterior proximal thigh musculature which is nearly isodense compared to muscle, partially imaged (image 176, series 6). Questionable subtlehypoattenuation within the left lateral pelvic/thigh musculature can be seen in thesetting of muscle edema or myonecrosis (series 6 image 159-176). Subcutaneousedema in the soft tissues of the pelvis. Impression: 1.No evidence of acute pulmonary embolism. 2.Volume loss and confluent consolidation in the right lower lobe with areas of hypoenhancement and surrounding septal thickening and groundglass opacities consistent with pneumonia, increased compared prior exam. 3.There is a 2.6 cm rim-enhancing round area involving the left proximal thigh hamstring musculature which is nearly isodense compared to muscle, only partially imaged. This may represent hematoma although given therim enhancement, infected collection cannot be excluded. 4.Questionable subtle hypoattenuation within the left lateralpelvic/thigh musculature can be seen in the setting of muscle edema or myonecrosis. 5.Noncalcified atherosclerotic plaque in the left superficial femoral artery with resultant focal moderate to high-grade stenosis. 6.Moderate distention of the urinary bladder is noted, otherwise unremarkable. > Dictated by Alexandro Kelsey MD (residential assistant) IAshwin MD have personally reviewed and interpreted this examination/study. > Interpreting Provider: Ashwin Lopez MD on 06/28/2022 8:38 AM Arthur Marinelli MD CT ORDERABLES * SARS-COV-2 (COVID-19) FLU A/B RSV PCR RAPID (06/27/2022 10:23 PM MEDICAL CLAIMS SPECIALIST) Only the most recent of3 resultswithin the time period is included. COVID-19 PCR Not detected Not detected 06/27/19 11:10 PM [facility] Influenza A PCR Not detected Not detected 06/27/2022 11:10 PM [facility] Influenza B PCR Not detected Not detected 06/27/2022 11:10 PM [facility] RSV PCR Not detected Not detected 06/27/2022 11:10 PM [facility] Microbiology SPECIMEN FROM NASOPHARYNGEAL STRUCTURE / Unknown Collection / Unknown 06/27/2022 10:23 PM MEDICAL CLAIMS SPECIALIST 06/27/2022 10:28 PM MEDICAL CLAIMS SPECIALIST [facility] - 06/27/2022 11:10 PM MEDICAL CLAIMS SPECIALIST This nucleic acid amplification assay has been authorized by the Food and Drug administration (FDA) under an Emergency??Use Authorization (EUA).?? This test is only authorized for the duration of time the declaration that circumstances exist justifying the authorization of emergency use of in vitro diagnostic tests for detection of SARS-CoV-2 virus and/or diagnosis of COVID-19 infection under section 564(b)(1) of the Act, 21 U.S.C 360bbb-3 (b)(1), unless the authorization is terminated or revoked sooner. Fact Sheets for this EUA assay are available upon request. Arthur Marinelli MD LAB - MICROBIOLOGY ORDERABLES [facility] [address] [place] [phone], [facility] [phone] * XR CHEST 2VW (06/01/2022 7:54 PM MEDICAL CLAIMS SPECIALIST) Anatomical Region Laterality Modality Chest Radiographic Adan ging 06/02/2022 1:34 PM MEDICAL CLAIMS SPECIALIST Impressions 06/02/2022 5:09 PM MEDICAL CLAIMS SPECIALIST IMPRESSION: Bilateral lower lobe opacities consistent with aspiration pneumonia. Report dictated by Ashu Welch M.D. (residential assistant) Ashwin Thomason MD have personally reviewed and interpreted this examination/study. > Interpreting Provider: Ashwin Lopez MD on 06/02/2022 5:09 PM Narrative 06/02/2022 5:09 PM MEDICAL CLAIMS SPECIALIST PROCEDURE: ??XR CHEST 2VW, DATE/TIME OF EXAM: ??06/01/2022 7:54 PM, LOCATION [facility] INDICATION: R91.8: Pulmonary infiltrate ADDITIONAL CLINICAL INFORMATION: Ordering Provider Reason For Exam: ??PNA follow up COMPARISON: Chest radiograph 05/11/2022, CT chest/abdomen/pelvis 05/30/2022 TECHNIQUE: Frontal and lateral radiographs of the chest. FINDINGS: There are bilateral airspace opacities within the lower lobes, left greater than right, which correlate with opacities seen on prior CT dated 05/30/2022, and compatible with aspiration pneumonia. There is suggestion of small bilateral pleural effusions. No evidence of pneumothorax. The cardiomediastinal silhouette is normal in size. The visible bony thorax is intact. Procedure Note Dianne Lopez MD - 06/02/2022 PROCEDURE: XR CHEST 2VW, DATE/TIME OF EXAM: 06/01/2022 7:54 PM, LOCATION [facility] INDICATION: R91.8: Pulmonary infiltrate ADDITIONAL CLINICAL INFORMATION: Ordering Provider Reason For Exam: PNA follow up COMPARISON: Chest radiograph 05/11/2022, CT chest/abdomen/pelvis 05/30/2022 TECHNIQUE: Frontal and lateral radiographs of the chest. FINDINGS: There are bilateral airspace opacities within the lower lobes, leftgreater than right, which correlate with opacities seen on prior CT date05/30/2022, and compatible with aspiration pneumonia. There is suggestion of small bilateral pleural effusions. No evidence of pneumothorax. The cardiomediastinal silhouette is normal in size. The visible bonythorax is intact. IMPRESSION: Bilateral lower lobe opacities consistent with aspiration pneumonia. Report dictated by Ashu Welch M.D. (residential assistant) Ashwin Thomason MD have personally reviewed and interpreted this examination/study. > Interpreting Provider: Ashwin Lopez MD on 06/02/2022 5:09 PM Westley Corley MD DIAGNOSTIC IMAGING O RDERABLES * LAB RESULTS ORDER (05/28/2022) Only the most recent of3 resultswithin the time period is included. 05/28/2022 Narrative 05/28/2022 Ordered by an unspecified provider. 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 Report dictated by Scar Oliveira MD (residential assistant). Rachel Thomason MD have personally reviewed and interpreted this examination/study. > Interpreting Provider: Rachel Phillips MD on 05/14/2022 4:48 PM Narrative 05/14/2022 4:48 PM MEDICAL CLAIMS SPECIALIST PROCEDURE: ??FL ESOPHAGRAM, DATE/TIME OF EXAM: ??05/14/2022 2:23 PM, LOCATION [facility] INDICATION: R13.12: Oropharyngeal dysphagia ADDITIONAL CLINICAL INFORMATION: Ordering Provider Reason For Exam: ??eval for Zenker's diverticulum COMPARISON: None. FLUOROSCOPY DOSE: ??52.40 mGy Reference air kerma (ka,r). FLUOROSCOPY TIME: ??1.1 minutes; Number of images: ??714 TECHNIQUE: Fluoroscopic images were obtained using Isovue-300 water-soluble contrast. FINDINGS: A targeted exam was performed of the pharynx and proximal esophagus. Evaluation of the esophageal contour is notable for a posterior outpouching within the hypopharynx at the level of C6-7 measuring approximately 2.4 cm in length and 1.4 x 1.4 cm in cross-section, consistent with a Zenker's diverticulum. There is significant narrowing of the esophagus at the level of the diverticulum measuring approximately 4 mm in AP dimension compared to 13 mm above and below this narrowing. Procedure Note Rachel Phillips MD - 05/14/2022 PROCEDURE: FL ESOPHAGRAM, DATE/TIME OF EXAM: 05/14/2022 2:23 PM,LOCATION [facility] INDICATION: R13.12: Oropharyngeal dysphagia ADDITIONAL CLINICAL INFORMATION: Ordering Provider Reason For Exam: eval for Zenker's diverticulum COMPARISON: None. FLUOROSCOPY DOSE: 52.40 mGy Reference air kerma (ka,r). FLUOROSCOPY TIME: 1.1 minutes; Number of images: 714 TECHNIQUE: Fluoroscopic images were obtained using Isovue-300 water-solublecontrast. FINDINGS: A targeted exam was performed of the pharynx and proximal esophagus. Evaluation of the esophageal contour is notable for a posterioroutpouching within the hypopharynx at the level of C6-7 measuring approximately 2.4cm in length and 1.4 x 1.4 cm in cross-section, consistent with a Zenker's diverticulum. There is significant narrowing of the esophagus at thelevel of the diverticulum measuring approximately 4 mm in AP dimensioncompared to 13 mm above and below this narrowing. IMPRESSION: Zenker's diverticulum with adjacent compression of the cervicalesophagus. Report dictated by Scar Oliveira MD (residential assistant). I, Rachel Phillips MD have personally reviewed and interpreted this examination/study. > Interpreting Provider: Rachel Phillips MD on 05/14/2022 4:48 PM Baldev Calr MD FLUOROSCOPY ORDERABL ES * ETT LINE PERFORMABLE (03/25/2022 4:31 PM CDT) Narrative Yelena Grier APRN-CRNA - 03/25/2022 4:31 PM CDT Yelena Grier APRN-CRNA ? 03/25/2022 ??4:52 PM Endotracheal Tube Placement: ? Intubation Event Date/Time: ??03/25/2022 4:31 PM Procedure: intubation (21698). Procedure Section: ?? Sedation: under general anesthesia. Indications for Airway Management: ??anesthesia Procedure pretreatments used? ??No Induction: standard IV and rapid sequence Patient Position: ??sniffing Mask Ventilation: not attempted. Blade Type: King Blade Size: 4 Laryngoscopy View: grade 2 (partial cords) Intubation Adjuncts: stylet Tube: endotracheal tube Placement: oral Tube type: cuff - inflated Tube Size (FR): 7 Depth of Insertion (CM): 24 Measured From: lips Cuff Inflated With: air Number of Attempts: 1. Placement Verified By: direct visualization, bilateral breath sounds, chest auscultation and CO2 monitor Tube secured with: ??adhesive tape. Dentition unchanged? ??Yes Difficult Airway? ??No. Procedure Start Time: 03/25/2022 4:31 PM. Staff Section ? Anesthesia Provider: Yelena Grier APRN-CRNA, Performed the procedure Aristeo Sanchez MD GENERAL ANESTHESIA O RDERABLES * EGD (03/25/2022 4:19 PM CDT) Report Endoscopy POC Endoscopy Department Report _ Patient Name: Bi Tabor ?Procedure Date: 03/25/2022 4:19 PM ? Date of : 1960 Classification: Inpatient ? Gender: Male Ethnicity: Not or ? Race: Black or _ Providers: ?Tiffani Castillo MD, Jolynn Ann (Fellow) Referring MD: ? Procedure: ?Upper GI endoscopy Indications: ?Dysphagia Medications: ?General Anesthesia, Ancef 2 grams IV given during ?EGD Description of Procedure: Pre-Anesthesia Assessment: ?- Prior to the procedure, a History and Physical ?was performed, and patient medications and ?allergies were reviewed. The patient's tolerance of ?previous anesthesia was also reviewed. The risks ?and benefits of the procedure and the sedation ?options and risks were discussed with the patient. ?All questions were answered, and informed consent ?was obtained. Prior Anticoagulants: The patient has ?taken no previous anticoagulant or antiplatelet ?agents. ASA Grade Assessment: III - A patient with ?severe systemic disease. After reviewing the risks ?and benefits, the patient was deemed in ?satisfactory condition to undergo the procedure. ?- Prior Aspirin/ NSAID therapy: The patient has ?taken no previous aspirin or NSAID medications. ?After obtaining informed consent, the endoscope was ?passed under direct vision. Throughout the ?procedure, the patient's blood pressure, pulse, and ?oxygen saturations were monitored continuously. The ?[id number] was introduced through the mouth, and ?advanced to the second part of duodenum. The upper ?GI endoscopy was accomplished with ease. The ?patient tolerated the procedure well. ? Findings: ? Esophagogastric landmarks were identified: the Z-line was found at 38 ? cm, the gastroesophageal junction was found at 38 cm and the site of ? hiatal narrowing was found at 38 cm from the incisors. ? Multiple localized erosions with no bleeding and no stigmata of recent ? bleeding were found in the gastric antrum. ? Localized mildly erythematous mucosa without active bleeding and with no ? stigmata of bleeding was found in the first portion of the duodenum. ? The cardia and gastric fundus were normal on retroflexion. ? The patient was placed in the supine position for PEG placement. The ? stomach was insufflated to appose gastric and abdominal head. A site ? was located in the body of the stomach with excellent transillumination ? for placement. The abdominal wall was marked and prepped in a sterile ? manner. The area was anesthetized with 5 mL of 1% lidocaine. The trocar ? needle was introduced through the abdominal wall and into the stomach ? under direct endoscopic view. A snare was introduced through the ? endoscope and opened in the gastric lumen. The guide wire was passed ? through the trocar and into the open snare. The snare was closed around ? the guide wire. The endoscope and snare were removed, pulling the wire ? out through the mouth. A skin incision was made at the site of needle ? insertion. The externally removable 24 Fr Rojas-Cook gastrostomy tube ? was lubricated. The G-tube was tied to the guide wire and pulled through ? the mouth and into the stomach. The trocar needle was removed, and the ? gastrostomy tube was pulled out from the stomach through the skin. The ? external bumper was attached to the gastrostomy tube, and the tube was ? cut to remove the guide wire. The final position of the gastrostomy tube ? was confirmed by relook endoscopy, and skin marking noted to be 4 cm at ? the bottom of the external bumper. The final tension and compression of ? the abdominal wall by the PEG tube and external bumper were checked and ? revealed that the bumper was loose and lightly touching the skin. The ? feeding tube was capped, and the tube site cleaned and dressed. ? Large diverticulum was seen in the oropharynx which made it difficult to ? intubate the esophagus. ? Estimated Blood Loss: ? Estimated blood loss was minimal. Complications: ?No immediate complications. Impression: ? - Esophagogastric landmarks identified. ?- Erosive gastropathy with no bleeding and no ?stigmata of recent bleeding. ?- Erythematous duodenopathy. ?- Diverticulum in oropharynx. Difficult intubation ?of esophagus. ?- An externally removable PEG placement was ?successfully completed. ?- No specimens collected. Recommendation: ? - Return patient to hospital [facility] for ongoing care. ?- NPO for 4 hours. ?- No blind NGT or OGT placements due to large ?diverticulum in o/p. ?- Continue present medications. PPI daily. ?- Antibiotics given for PEG today. ?- Please follow the post-PEG recommendations ?including: Nutrition consult for formula and ?volume, external bolster 1 cm from abdominal wall, ?change dressing once per day, may use PEG today for ?meds and water and clean site with soap and water ?daily and dry thoroughly. ? Attending Participation: ??I personally performed the entire procedure. ? Procedure Code(s): ? --- Professional --- ? 22053, Esophagogastroduoden oscopy, flexible, transoral; with directed ? placement of percutaneous gastrostomy tube Diagnosis Code(s): ?--- Professional --- ?K31.89, Other diseases of stomach and duodenum ?R13.10, Dysphagia, unspecified CPT copyright 2019 [employer]. All rights reserved. The codes documented in this report are preliminary and upon nozzleman review may be revised to meet current compliance requirements. __ Tiffani Castillo MD 03/25/2022 5:11:23 PM Note Initiated On: 03/25/2022 4:19 PM Number of Addenda: 0 ? [facility] ? [address] [place] [address] [facility] 03/25/2022 4:19 PM CDT Artur Mcgraw MD GI PROCEDURE ORDERA [facility] * ETT LINE PERFORMABLE (03/15/2022 9:57 AM CDT) Narrative Loretta Coronado MD - 03/15/2022 9:57 AM CDT Loretta Coronado MD ? 03/15/2022 10:28 AM Endotracheal Tube Placement: ? Patient Location: OR. Intubation Event Date/Time: ??03/15/2022 9:57 AM Procedure: intubation (86245). Procedure Section: ?? Sedation: under general anesthesia. Indications for Airway Management: ??anesthesia Induction: standard IV Patient Position: ??sniffing Mask Ventilation: easy with oral airway. Blade Type: King Blade Size: 4 Laryngoscopy View: grade 3 (epiglottis) Intubation Adjuncts: stylet Tube: endotracheal tube Placement: oral Tube type: cuff - inflated Tube Size (MM): 8 Depth of Insertion (CM): 23 Measured From: teeth Cuff volume (mL): ??12 Cuff Inflated With: air Number of Attempts: 1. Placement Verified By: direct visualization, bilateral breath sounds, chest auscultation and CO2 monitor Tube secured with: ??adhesive tape. Dentition unchanged? ??Yes Difficult Airway? ??No. Procedure Start Time: 03/15/2022 9:57 AM. Staff Section ? Anesthesia Provider: Loretta Coronado MD, Performed the procedure ? Provider #1: Ariela Conde MD. Ariela Conde MD GENERAL ANESTHESIA O RDERABLES * MRI FOOT LEFT WWO CONTRAST (03/15/2022 12:56 AM CDT) Anatomical Region Laterality Modality Ankle / Foot Magnetic Resonan ce 03/15/2022 8:33 AM CDT Impressions 03/15/2022 8:42 AM CDT IMPRESSION: 1. No abnormal marrow signal in the left foot to indicate acute osteomyelitis. 2. No loculated fluid collection in the left foot. > Interpreting Provider: John Graham MD on 03/15/2022 8:42 AM Narrative 03/15/2022 8:42 AM CDT PROCEDURE: ??MRI FOOT LEFT WWO CONTRAST, DATE/TIME OF EXAM: ??03/15/2022 12:57 AM, LOCATION ??[facility] INDICATION: R78.81: Bacteremia I73.9: PAD (peripheral artery disease) ([facility]) ADDITIONAL CLINICAL INFORMATION: Ordering Provider Reason For Exam: ??eval for osteo/source of bacteremia COMPARISON: Left foot x-rays dated 03/08/2022. TECHNIQUE: MRI of the left foot was performed utilizing multiple pulse sequences in multiple planes before and after intravenous gadolinium contrast administration. CONTRAST: ?? GADOBUTROL 1 MMOL/ML IV SSM SO:6 mL FINDINGS: There is moderate chondrosis of the great toe metatarsophalangeal joint. There is a bone infarct in the distal aspect of the great toe proximal phalanx. The visualized flexor and extensor tendons are intact. There is no loculated fluid collection. No abnormal bone marrow signal to indicate osteomyelitis. There is slight motion artifact in the postcontrast images, but there is no abnormal osseous enhancement. Procedure Note John Graham MD - 03/15/2022 PROCEDURE: MRI FOOT LEFT WWO CONTRAST, DATE/TIME OF EXAM: 03/15/2022 12:57 AM, LOCATION [facility] INDICATION: R78.81: Bacteremia I73.9: PAD (peripheral artery disease) ([facility]) ADDITIONAL CLINICAL INFORMATION: Ordering Provider Reason For Exam: eval for osteo/source of bacteremia COMPARISON: Left foot x-rays dated 03/08/2022. TECHNIQUE: MRI of the left foot was performed utilizing multiple pulse sequences in multiple planes before and after intravenous gadolinium contrast administration. CONTRAST: GADOBUTROL 1 MMOL/ML IV SSM SO:6 mL FINDINGS: There is moderate chondrosis of the great toe metatarsophalangeal joint. There is a bone infarct in the distal aspect of the great toe proximal phalanx. The visualized flexor and extensor tendons are intact. There is no loculated fluid collection. No abnormal bone marrow signalto indicate osteomyelitis. There is slight motion artifact in the postcontrast images, but there isno abnormal osseous enhancement. IMPRESSION: 1. No abnormal marrow signal in the left foot to indicate acute osteomyelitis. 2. No loculated fluid collection in the left foot. > Interpreting Provider: John Graham MD on 03/15/2022 8:42 AM Blair Mojica MD MR ORDERABLES * VAS LEFT ARTERIAL DUPLEX LE (03/09/2022 4:34 PM CDT) Only the most recent of2 resultswithin the time period is included. Anatomical Region Laterality Modality Lower Extremity Intravascular Ul trasound 03/09/2022 3:23 PM CDT Narrative Procedure Note Jose Davila MD - 03/09/2022 Vicky Silva MD VASCULAR LAB ORDERAB LES * VAS ARTERIAL ANKLE ARM INDEX (03/09/2022 4:27 PM CDT) Only the most recent of3 resultswithin the time period is included. Anatomical Region Laterality Modality Ankle / Foot, Upper Extremity In travascular Ultrasound 03/09/2022 1:18 AM CDT Narrative Procedure Note Jose Davila MD - 03/09/2022 Vicky Silva MD VASCULAR LAB ORDERAB LES * XR FOOT LEFT 3VW OR MORE (03/08/2022 3:38 PM CDT) Only the most recent of2 resultswithin the time period is included. Anatomical Region Laterality Modality Ankle / Foot Radiographic Adan ging 03/08/2022 3:37 PM CDT Narrative 03/08/2022 4:48 PM CDT PROCEDURE: ??XR FOOT LEFT 3VW OR MORE, DATE/TIME OF EXAM: ??03/08/2022 3:38 PM, LOCATION ??[facility] INDICATION: R50.9: Fever, unspecified fever cause ADDITIONAL CLINICAL INFORMATION: Ordering Provider Reason For Exam: ??osteo? COMPARISON: 03/05/2022 FINDINGS/IMPRESSION: No evidence of acute fracture or dislocation. No cortical erosions or focal mineralization to suggest osteomyelitis. However radiographs are insensitive for detection of early osteomyelitis. A soft tissue defect with adjacent swelling is noted medial to the first metatarsal head. The joint spaces are maintained. There is diffuse bony mineralization. Vascular calcifications are noted. Report dictated by Param Eubanks MD (residential assistant). Eron Thomason have personally reviewed and interpreted this examination/study. > Interpreting Provider: Eron Payton on 03/08/2022 4:48 PM Procedure Note Eron Payton MD - 03/08/2022 PROCEDURE: XR FOOT LEFT 3VW OR MORE, DATE/TIME OF EXAM: :38 PM, LOCATION [facility] INDICATION: R50.9: Fever, unspecified fever cause ADDITIONAL CLINICAL INFORMATION: Ordering Provider Reason For Exam: osteo? COMPARISON: 03/05/2022 FINDINGS/IMPRESSION: No evidence of acute fracture or dislocation. No cortical erosions orfocal mineralization to suggest osteomyelitis. However radiographs are insensitive for detection of early osteomyelitis. A soft tissue defectwith adjacent swelling is noted medial to the first metatarsal head. Thejoint spaces are maintained. There is diffuse bony mineralization. Vascular calcifications are noted. Report dictated by Param Eubanks MD (residential assistant). Eron Thomason have personally reviewed and interpreted this examination/study. 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 FLUOROSCOPY TIME: ??.73 minutes; Number of images: ??21 FINDINGS: A feeding tube was advanced through the right nostril under fluoroscopic guidance and guided into the stomach. ??20 cc of Isovue-300 water-soluble contrast was injected into the feeding tube to confirm positioning. Tube was secured before sending the patient to the [facility]. Report dictated by Quan Nguyễn MD (residential assistant). Bebo Thomason MD have personally reviewed and interpreted this examination/study. > Interpreting Provider: Bebo Kuo MD on 01/05/2022 2:49 PM Procedure Note Bebo Kuo MD - 01/05/2022 PROCEDURE: FL ORAL NJ OR D TUBE PLACEMENT, DATE/TIME OF EXAM: 12/30/2021 2:40 PM, LOCATION [facility] INDICATION: G40.109: 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, not intractable, without status epilepticus ADDITIONAL CLINICAL INFORMATION: Ordering Provider Reason For Exam: Dobhoff placement Technologist Note: Additional: COMPARISON: X-ray Chest 12/30/2021 FLUOROSCOPY DOSE: 7.7 Air Kerma Reference air kerma (ka,r). FLUOROSCOPY TIME: .73 minutes; Number of images: 21 FINDINGS: A feeding tube was advanced through the right nostril under fluoroscopic guidance and guided into the stomach. 20 cc of Isovue-300 water-soluble contrast was injected into the feeding tube to confirm positioning. Tube was secured before sending the patient to the [facility]. Report dictated by Quan Nguyễn MD (residential assistant). Bebo Thomason MD have personally reviewed and interpreted this examination/study. > Interpreting Provider: Bebo Kuo MD on 01/05/2022 2:49PM Sean Raymundo DO FLUOROSCOPY ORDERABL ES * CT ANGIO BRAIN NECK STROKE (12/29/2021 8:04 AM CDT) Only the most recent of2 resultswithin the time period is included. Anatomical Region Laterality Modality Head Computed Tomogra phy 12/29/2021 8:48 AM CDT Impressions 12/29/2021 11:46 AM CDT IMPRESSION: 1.The dural venous sinuses are not well opacified with contrast and cannot be evaluated. 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 3.70% stenosis of the left ICA origin due to atherosclerotic plaque at the bifurcation is stable. 4.No aneurysm, AVM, or new acute large vessel occlusion. These findings were discussed in detail with the patient's care provider, MD Carrie by Dr. Ami Clifford MD, PhD, via telephone at 0800 hrs on 12/29/2021 with readback comprehension and verification. > Dictated by: Ami Clifford MD, PhD (residential assistant). I, Saloni Lemus MD have personally reviewed and interpreted this examination/study. > Interpreting Provider: Saloni Lemus MD on 12/29/2021 11:46 AM Narrative 12/29/2021 11:46 AM CDT EXAMINATION: CT angiography of the brain CT angiography of the neck HISTORY: I69.80: Unspecified sequelae of other cerebrovascular disease TECHNIQUE: CT angiography of the head and neck was obtained after the uneventful administration of 50 mL Isovue 370 intravenous contrast. Three dimensional postprocessing was performed by the technologist and sent to the workstation for review. Viz.AI was used for huey vessel occlusion detection. COMPARISON: Same day CT brain stroke. CTA brain and neck from 02/25/2021. CT brain stroke from 02/25/2021. FINDINGS: CTA head: Calcified plaque is again demonstrated in the bilateral carotid siphons resulting in stenosis measuring up to 50% on the left, stable. The anterior and middle cerebral arteries are patent. ??There is a normal anterior communicating artery. 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 The right V4 segment is patent. The basilar artery is patent without high-grade stenosis. ??The posterior cerebral arteries are within normal limits. ??Posterior communicating arteries are not seen. The dural venous sinuses are not well opacified with contrast and cannot be evaluated. CTA neck: Right carotid artery system: Redemonstrated calcified atherosclerotic disease involves right CCA is stable. And right ICA bulb without hemodynamically significant stenosis. The cervical segment of right ICA demonstrates no significant stenosis. Left carotid artery system: Calcified atherosclerotic disease involves left ICA bulb with approximately 70% diameter stenosis, unchanged. The cervical segment of left ICA demonstrates is patent to the skull base. Vertebral artery system: Redemonstrated segmental high-grade stenosis of the proximal right V1 segment of immediately distal to its origin. Otherwise, the right vertebral artery demonstrates no significant stenosis or occlusion. Redemonstrated segmental high-grade stenosis of the distal V1 and proximal V2 segments. There are multifocal moderate severity stenoses in the V2 segment. Chronic occlusion of the left V3 segment is again demonstrated. Nonangiographic findings: Emphysematous changes are present in the visualized upper lungs. Mild retained secretions are noted within the trachea. Moderate to severe degenerative changes are demonstrated in the lower cervical spine. No acute abnormality is identified in the remaining soft tissues of the neck. Procedure Note Saloni Lemus MD - 12/29/2021 EXAMINATION: CT angiography of the brain CT angiography of the neck HISTORY: I69.80: Unspecified sequelae of other cerebrovascular disease TECHNIQUE: CT angiography of the head and neck was obtained after the uneventful administration of 50 mL Isovue 370 intravenous contrast.Three dimensional postprocessing was performed by the technologist and sent to the workstation for review. Viz.AI was used for huey vessel occlusion detection. COMPARISON: Same day CT brain stroke. CTA brain and neck from 02/25/2021.CT brain stroke from 02/25/2021. FINDINGS: CTA head: Calcified plaque is again demonstrated in the bilateral carotid siphons resulting in stenosis measuring up to 50% on the left, stable. Theanterior and middle cerebral arteries are patent. There is a normal anterior communicating artery. 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 The right V4 segment is patent. The basilarartery is patent without high-grade stenosis. The posterior cerebral arteriesare within normal limits. Posterior communicating arteries are not seen. The dural venous sinuses are not well opacified with contrast and cannotbe evaluated. CTA neck: Right carotid artery system: Redemonstrated calcified atherosclerotic disease involves right CCA is stable. And right ICA bulb without hemodynamically significant stenosis. The cervical segment of right ICA demonstrates no significant stenosis. Left carotid artery system: Calcified atherosclerotic disease involvesleft ICA bulb with approximately 70% diameter stenosis, unchanged. Thecervical segment of left ICA demonstrates is patent to the skull base. Vertebral artery system: Redemonstrated segmental high-grade stenosis of the proximal right V1 segment of immediately distal to its origin. Otherwise, the right vertebral artery demonstrates no significantstenosis or occlusion. Redemonstrated segmental high-grade stenosis of the distalV1 and proximal V2 segments. There are multifocal moderate severitystenoses in the V2 segment. Chronic occlusion of the left V3 segment is again demonstrated. Nonangiographic findings: Emphysematous changes are present in the visualized upper lungs. Mild retained secretions are noted within the trachea. Moderate to severe degenerative changes are demonstrated in the lower cervical spine. Noacute abnormality is identified in the remaining soft tissues of the neck. IMPRESSION: 1.The dural venous sinuses are not well opacified with contrast andcannot be evaluated. 2.Chronic occlusion of the V3 and V4 segments of the left vertebralartery appear stable compared to the CTA head and neck from 02/25/2021. 3.70% stenosis of the left ICA origin due to atherosclerotic plaque atthe bifurcation is stable. 4.No aneurysm, AVM, or new acute large vessel occlusion. These findings were discussed in detail with the patient's careproviderCarrie MD by Dr. Ami Clifford MD, PhD, via telephone at 0800 hrson 12/29/2021 with readback comprehension and verification. > Dictated by: Ami Clifford MD, PhD (residential assistant). I, Saloni Lmeus MD have personally reviewed and interpreted this examination/study. > Interpreting Provider: Saloni Lemus MD on 12/29/2021 11:46 AM Sean Raymundo DO CT ORDERABLES * CT BRAIN STROKE (12/29/2021 7:55 AM CDT) Only the most recent of2 resultswithin the time period is included. Anatomical Region Laterality Modality Head Computed Tomogra phy 12/29/2021 8:06 AM CDT Addenda Addendum by Saloni Lemus MD on 12/29/2021 3:[address] Lemus, the neuroradiology attending, reviewed the images at the time of this communication. > Interpreting Provider: Saloni Lemus MD on 12/29/2021 3:47 PM Impressions 12/29/2021 11:15 AM CDT IMPRESSION: 1.No acute intracranial process. 2.Old infarcts and senescent changes are stable compared to the brain CT from 05/01/2021. These findings were discussed in detail with the patient's care provider, MD Carrie by Dr. Ami Clifford MD, PhD, via telephone at 0816 hrs on 12/29/2021 with readback comprehension and verification. > Dictated by: Ami Clifford MD, PhD (residential assistant). I, Saloni Lemus MD have personally reviewed and interpreted this examination/study. > Interpreting Provider: Saloni Lemus MD on 12/29/2021 11:15 AM Narrative 12/29/2021 11:15 AM CDT EXAMINATION: Computed tomography (CT) of the head without contrast HISTORY: R53.1: Weakness TECHNIQUE: CT of the head was performed without contrast according to standard protocol. COMPARISON: Noncontrast head CT from 05/01/2021. FINDINGS: Chronic lacunar infarcts are seen in the left basal ganglia and bilateral thalami. Cystic encephalomalacia in the medial right temporal occipital regions compatible with an old right SHOE PARTS MOLDER infarct. Moderate cerebral white matter hypodensity is compatible with chronic microvascular ischemic changes. No acute loss of cooper-white matter differentiation is identified. There is no acute parenchymal hemorrhage. The ventricles are midline. The ventricles are moderately enlarged, consistent with cerebral volume loss which appears stable compared to the prior brain CT. No acute extra-axial hemorrhage is identified. There is moderate calcification of the carotid siphons. There is redemonstrated complete opacification of the right maxillary sinus, unchanged. The mastoid sinuses are clear. An old medial left orbital wall fracture is again demonstrated. There is no skull fracture. Procedure Note Saloni Lemus MD - 12/29/2021 EXAMINATION: Computed tomography (CT) of the head without contrast HISTORY: R53.1: Weakness TECHNIQUE: CT of the head was performed without contrast according to standard protocol. COMPARISON: Noncontrast head CT from 05/01/2021. FINDINGS: Chronic lacunar infarcts are seen in the left basal ganglia andbilateral thalami. Cystic encephalomalacia in the medial right temporal occipital regions compatible with an old right SHOE PARTS MOLDER infarct. Moderate cerebralwhite matter hypodensity is compatible with chronic microvascular ischemic changes. No acute loss of cooper-white matter differentiation isidentified. There is no acute parenchymal hemorrhage. The ventricles are midline. The ventricles are moderately enlarged, consistent with cerebral volume loss which appears stable compared tothe prior brain CT. No acute extra-axial hemorrhage is identified. There is moderate calcification of the carotid siphons. There is redemonstrated complete opacification of the right maxillary sinus, unchanged. The mastoid sinuses are clear. An old medial left orbitalwall fracture is again demonstrated. There is no skull fracture. IMPRESSION: 1.No acute intracranial process. 2.Old infarcts and senescent changes are stable compared to the brain CT from 05/01/2021. These findings were discussed in detail with the patient's careproviderCarrie MD by Dr. Ami Clifford MD, PhD, via telephone at 0816 hrson 12/29/2021 with readback comprehension and verification. > Dictated by: Ami Clifford MD, PhD (residential assistant). I, Saloni Lemus MD have personally reviewed and interpreted this examination/study. > Interpreting Provider: Saloni Lemus MD on 12/29/2021 11:15 AM Sean Raymundo DO CT ORDERABLES * VAS CAROTID DUPLEX BILATERAL (04/02/2021 12:27 PM CDT) Anatomical Region Laterality Modality Neck Intravascular Ul trasound 04/02/2021 11:4 0 AM CDT Narrative 04/02/2021 4:10 PM CDT Procedure Note Chai Jay MD - 04/02/2021 Ousmane Frederick MD VASCULAR LAB ORDERA BLES * VAS TRANSCRANIAL DOPPLER COMP (04/02/2021 12:27 PM CDT) Anatomical Region Laterality Modality Head Intravascular Ul trasound 04/02/2021 11:5 6 AM CDT Narrative 04/03/2021 11:52 AM CDT Procedure Note Jacqueline Chavez MD - 04/03/2021 Ousmane Frederick MD VASCULAR LAB ORDERA BLES * URINE DRUG SCREEN IMMUNOASSAY (02/25/2021 1:57 PM CDT) Only the most recent of5 resultswithin the time period is included. [facility] Amphetamines Screen Urine Negative Negative: < 1000 ng/mL 02/25/2021 2:18 PM CDT [facility] Barbiturates Screen Urine Negative Negative: < 200 ng/mL 02/25/2021 2:18 PM T [facility] Benzodiazepine Screen Urine Negative Negative: < 200 ng/mL 02/25/2021 2:18 PM [facility] Opiates Urine Negative Negative: < 300 ng/mL 02/25/2021 2:18 PM T [facility] Cocaine Metabolites Urine Negative Negative: < 300 ng/mL 02/25/2021 2:18 PM [facility] Phencyclidine Screen Urine Negative Negative: < 25 ng/ml 02/25/2021 2:18 PM T [facility] Cannabinoids Screen Urine Negative Negative: <50 ng/mL 02/25/2021 2:18 PM T [facility] Methadone Screen Urine Negative Negative: < 300 ng/mL 02/25/2021 2:18 PM [facility] Fentanyl Screen Urine Negative Negative: <1.0 ng/mL 02/25/2021 2:18 PM T [facility] Urine URINE / Unknown Collection / Unknown 02/25/2021 1:57 PM CDT 02/25/2021 2:04 PM CDT Narrative [facility] - 02/25/2021 2:18 PM CDT The Urine Toxicology Screening Panel does not screen for Propoxyphene, Meprobamate, Carisoprodol, Trazodone, [id number] medications and/or volatiles (Acetone, Isopropanol, Methanol or Ethylene Glycol). Ethanol, Salicylate, Acetaminophen, Tricyclic Antidepressants and several therapeutic drugs may be individually assayed in serum or plasma specimen. Toxicology testing by the [facility] is an aid to medical diagnosis and treatment of patients. No documented chain of custody was maintained. Results are intended to be used for clinical purposes only. ? Shane Fajardo MD LAB - URINE CHEMIS TRY ORDERABLES [facility] [address] [place] [id number], [facility] [phone] * ALCOHOL ETHYL BLOOD (02/25/2021 11:35 AM CDT) Only the most recent of9 resultswithin the time period is included. Ethanol (mg/dL) <10 <10 mg/dL 12:53 PM CDT [facility] Ethanol Calculated (g/dL) <0.010 <0.010 g/dL 02/25/2021 12:53 PM T [facility] Blood BLOOD SPECIMEN / Unknown Venipuncture / Unknown 02/25/2021 11:35 AM CDT 02/25/2021 12:12 PM CDT Narrative [facility] - 02/25/2021 12:53 PM CDT Ethanol Interp <10: None Detected. Depression of BIT SANDER: >100 mg/dl Potentially Critical: >250 mg/dl Potentially Fatal >400 mg/dl Ethanol in the patient's blood will contribute to the osmolar gap. Ethanol's contribution to the osmolar gap can be estimated by dividing the concentration of ethanol in mg/dL by 4.6. This test is for clinical use only and does not equal a JOSE for legal purposes. Shane Fajardo MD LAB - CHEMISTRY OR DERABLES Performing Organization Address [facility]/ZIP Co de Phone Number [address] [address], [place] [phone] * BLOOD TYPE VERIFICATION (02/25/2021 11:30 AM CDT) ABO Rh O POS 02/25/2021 12:50 PM CDT [facility] Blood Bank BLOOD SPECIMEN / Unknown Lab Venipuncture / Unknown 02/25/2021 11:30 AM CDT 02/25/2021 12:21 PM CDT Provider Unknown LAB - BLOOD BANK ORD ERABLES Performing Organization Address [facility] Co de Phone Number [facility] [address] [place] [phone], [place] [phone] * CREATININE - POCT INTERFACED (02/25/2021 11:25 AM CDT) Creatinine POCT 0.73 0.30 - 1.30 mg/dL 02/25/2021 11:29 AM CDT [facility] eGFR >60 >60 mL/min/1.7 3 m2 02/25/2021 11:29 AM CDT [facility] Blood BLOOD SPECIMEN / Unknown 02/25/2021 11:25 AM CDT 02/25/2021 11:28 AM CDT Shane Fajardo MD LAB - POINT OF CAR E ORDERABLES Performing Organization Address [facility]/ZIP Co de Phone Number [address] [address], [place] [phone] * US RETROPERITONEAL COMPLETE (08/20/2020 10:47 AM CDT) Anatomical Region Laterality Modality Abdomen Ultrasound 08/20/2020 10:4 3 AM CDT Impressions 08/20/2020 10:52 AM CDT IMPRESSION: Within the limitations of the study, the kidneys appear grossly unremarkable. Dictated by Yonis Howard MD (residential assistant). Dr. NAJMA Thomason have personally reviewed and interpreted this examination/study. This report was electronically signed by NAJMA BRITT ??on 08/20/2020 10:52 AM . Narrative 08/20/2020 10:52 AM CDT EXAMINATION: Complete retroperitoneal sonogram HISTORY: N39.0: Urinary tract infection without hematuria, site unspecified COMPARISON: No prior study is available for comparison at the time of this dictation. FINDINGS: Limited examination due to poor visualization of the kidneys. Left kidney: 9.2 x 5.0 x 4.8 cm The right kidney size could not be measured. Visualized portions of kidneys demonstrate near normal parenchymal echogenicity without evidence of a solid mass, renal calculi or hydronephrosis. Blood flow is the urinary bladder is distended and appears unremarkable. Procedure Note Najma Britt MD - 08/20/2020 EXAMINATION: Complete retroperitoneal sonogram HISTORY: N39.0: Urinary tract infection without hematuria, siteunspecified COMPARISON: No prior study is available for comparison at the time ofthis dictation. FINDINGS: Limited examination due to poor visualization of the kidneys. Left kidney: 9.2 x 5.0 x 4.8 cm The right kidney size could not be measured. Visualized portions of kidneys demonstrate near normal parenchymal echogenicity without evidence of a solid mass, renal calculi or hydronephrosis. Blood flow is the urinary bladder is distended andappears unremarkable. IMPRESSION: Within the limitations of the study, the kidneys appear grossly unremarkable. Dictated by Yonis Howard MD (residential assistant). Dr. NAJMA Thomason have personally reviewed and interpreted this examination/study. This report was electronically signed by NAJMA BRITT on 110:52 AM . Baldev Carl MD US ORDERABLES * MRI BRAIN WO CONTRAST (08/15/2020 4:51 PM CDT) Only the most recent of2 resultswithin the time period is included. Anatomical Region Laterality Modality Head Magnetic Resonan ce 08/16/2020 1:05 PM CDT Impressions 08/16/2020 1:10 PM CDT IMPRESSION: 1.Motion limited study. Within this limitation, no acute intracranial abnormality. 2.Extensive cerebral, cerebellar and brainstem atrophy, significantly greater than expected for age. 3.Extensive atrophy of the right hippocampus, asymmetric as compared to the left. There is likely increased FLAIR signal in the residual right hippocampus. These findings are related to chronic seizures. This report was electronically signed by VIVIAN ORTIZ ??on 08/16/2020 1:10 PM . Narrative 08/16/2020 1:10 PM CDT MRI BRAIN WITHOUT CONTRAST CLINICAL INFORMATION:R56.9: Seizure TECHNIQUE: MRI of the brain was performed without intravenous contrast according to seizure protocol. COMPARISON: CT head from 08/13/2020 was reviewed. FINDINGS: The study is limited due to motion artifact on multiple sequences. Within this limitation, the following findings are noted: There is no infarction or hemorrhage. ??There is no intracranial mass or mass effect. There is no hydrocephalus or extra-axial fluid collection. There are moderate chronic microvascular ischemic changes. Old infarct is seen in bilateral thalami and in right medial occipital lobe. The sella is unremarkable. There is extensive atrophy of the cerebral and cerebellar hemispheres and brainstem (particularly the isabella and midbrain). There is extensive atrophy of the right hippocampus, asymmetric as compared to the left. There is likely increased FLAIR signal in the residual right hippocampus. Flow voids of major intracranial vessels are noted. The sella is unremarkable. There is near-complete opacification of the right maxillary sinus due to retention cysts and fluid. There is scattered opacification of ethmoid air cells. The orbits are unremarkable. Procedure Note Vivian Ortiz MD - 08/16/2020 MRI BRAIN WITHOUT CONTRAST CLINICAL INFORMATION:R56.9: Seizure TECHNIQUE: MRI of the brain was performed without intravenous contrast according to seizure protocol. COMPARISON: CT head from 08/13/2020 was reviewed. FINDINGS: The study is limited due to motion artifact on multiple sequences.Within this limitation, the following findings are noted: There is no infarction or hemorrhage. There is no intracranial mass or mass effect. There is no hydrocephalus or extra-axial fluid collection. There are moderate chronic microvascular ischemic changes. Old infarctis seen in bilateral thalami and in right medial occipital lobe. The sellais unremarkable. There is extensive atrophy of the cerebral and cerebellar hemispheresand brainstem (particularly the siabella and midbrain). There is extensiveatrophy of the right hippocampus, asymmetric as compared to the left. There is likely increased FLAIR signal in the residual right hippocampus. Flow voids of major intracranial vessels are noted. The sella is unremarkable. There is near-complete opacification of the rightmaxillary sinus due to retention cysts and fluid. There is scattered opacification of ethmoid air cells. The orbits are unremarkable. IMPRESSION: 1.Motion limited study. Within this limitation, no acute intracranial abnormality. 2.Extensive cerebral, cerebellar and brainstem atrophy, significantly greater than expected for age. 3.Extensive atrophy of the right hippocampus, asymmetric as compared to the left. There is likely increased FLAIR signal in the residual right hippocampus. These findings are related to chronic seizures. This report was electronically signed by VIVIAN ORTIZ on 08/16/2020 1:10PM . Baldev Carl MD MR ORDERABLES * XR PELVIS 1 OR 2VW (08/15/2020 10:33 AM CDT) Anatomical Region Laterality Modality Pelvis Radiographic Adan ging 08/15/2020 10:3 4 AM CDT Impressions 08/15/2020 1:42 PM CDT IMPRESSION: 1.No acute fracture or dislocation identified. 2.No radiopaque foreign body visualized. Dictated by Brandee Celestin MD (residential assistant). I, Dr. CHARLES GARSIA MD have personally reviewed and interpreted this examination/study. This report was electronically signed by CHARLES GARSIA MD ??on 08/15/2020 1:42 PM . Narrative 08/15/2020 1:42 PM CDT EXAMINATION: XR PELVIS 1 VW HISTORY: R56.9: Seizure. This exam is required for MRI to look for foreign body. COMPARISON: No prior study is available for comparison. FINDINGS: No acute fracture is identified. The bilateral hip joint spaces are preserved. The pubic symphysis is intact. The osseous architecture and density are normal. The sacroiliac joints are normal. Procedure Note Charles Garsia MD - 08/15/2020 EXAMINATION: XR PELVIS 1 VW HISTORY: R56.9: Seizure. This exam is required for MRI to look forforeign body. COMPARISON: No prior study is available for comparison. FINDINGS: No acute fracture is identified. The bilateral hip joint spaces are preserved. The pubic symphysis is intact. The osseous architecture and density are normal. The sacroiliac joints are normal. IMPRESSION: 1.No acute fracture or dislocation identified. 2.No radiopaque foreign body visualized. Dictated by Brandee Celestin MD (residential assistant). I, Dr. CHARLES GARSIA MD have personally reviewed and interpreted this examination/study. This report was electronically signed by CHARLES GARSIA MD on08/15/2020 1:42 PM . Baldev Carl MD DIAGNOSTIC IMAGING O RDERABLES * HEPARIN PLATELET INDUCED ANTIBODY (08/15/2020 9:08 AM CDT) Interpretation Heparin Platelet Antibody Negative Negative 08/15/2020 1:29 PM CDT [facility] Comment:Heparin induced thro mbocytopenia (HIT) is unlikely in the presence of a negative HIT antibody test result by VLADISLAV and low pretest probability for type II HIT (scoring system of [place]). It is suggested to verify positive HIT VLADISLAV antibody test results by HIT Antibody Serotonin Release Assay. HIT VLADISLAV Patient OD 0.142 <0.400 OD 08/15/2020 1:29 PM CDT [facility] Blood BLOOD SPECIMEN / Unknown Lab Venipuncture / Unknown 08/15/2020 9:08 AM CDT 08/15/2020 9:30 AM CDT Baldev Carl MD LAB - CHEMISTRY MARSHAL MEDEROS [facility] [address] [place] [phone], [facility] [phone] * IR ANGIOGRAM LEFT LEG (07/18/2019 3:31 PM MEDICAL CLAIMS SPECIALIST) Anatomical Region Laterality Modality Lower Extremity X-Ray Angiograph y 07/18/2019 3:11 PM MEDICAL CLAIMS SPECIALIST Impressions 07/18/2019 3:15 PM MEDICAL CLAIMS SPECIALIST stenosis impression: IMPRESSION: Successful angioplasty of anterior tibial artery and superficial femoral artery This report was electronically signed by ANNA BAEZA M.D. ??on 07/18/2019 3:15 PM . Narrative 07/18/2019 3:15 PM [employer]ICAL CLAIMS SPECIALIST Preprocedure diagnosis ischemic left lower extremity Postprocedure diagnosis same Procedure performed is right common femoral artery access with ultrasound guidance. third order selective catheter placement. Primary angioplasty of anterior tibial artery. Primary angioplastied superficial femoral artery Surgeon is Anna Baeza md and kush kaplan Anesthesia: 75 mcg fentanyl IV and 1 mg of Versed, 8 mL lidocaine right groin Contrast used 50 mL Technical details: The common femoral artery was access via Seldinger technique and a 6 British sheath was placed. A combination of Omni Flush catheter and Glidewire were used to come up and over. Once the catheter was in the superficial femoral artery the system was changed out to a stiff wire. In up and over sheath of 6 British was then placed. Images of left lower extremity were obtained. Patient was given 5000 units heparin IV a combination of quick cross and Glidewire were used to get down to the anterior tibial artery.Platform was then changed to an 014 and the anterior tibial was access down to the ankle. A 2 x 40 balloon was insufflated to 16 jennifer of pressure at the target lesion. Once this balloon was withdrawn and images were obtained of the thigh and approximately 60 percent lesion was identified and superficial femoral artery and this was then treated using a combination glide wire 5 x 40 balloon again insufflated to 10 jennifer of pressure with a good technical result. All wires and catheters were withdrawn and pressure was held in the right groin patient was given 20 protamine at the completion of the procedure Findings anterior tibial artery stenosis, superficial femoral artery Procedure Note Anna Baeza MD - 07/18/2019 Preprocedure diagnosis ischemic left lower extremity Postprocedure diagnosis same Procedure performed is right common femoral artery access withultrasound guidance. third order selective catheter placement. Primary angioplastyof anterior tibial artery. Primary angioplastied superficial femoral artery Surgeon is Anna Baeza md and kush kaplan Anesthesia: 75 mcg fentanyl IV and 1 mg of Versed, 8 mL lidocaine right groin Contrast used 50 mL Technical details: The common femoral artery was access via Seldinger technique and a 6 British sheath was placed. A combination of Omni Flush catheter and Glidewire were used to come up and over. Once the catheter was in the superficial femoral artery the system was changed out to a stiff wire. In up and over sheath of 6 British was then placed. Images of left lower extremity were obtained. Patient was given 5000 units heparin IV a combination of quick cross and Glidewire were used to get down tothe anterior tibial artery.Platform was then changed to an 014 and the anterior tibial was access down to the ankle. A 2 x 40 balloon was insufflated to 16 jennifer of pressure at the target lesion. Once thisballoon was withdrawn and images were obtained of the thigh and approximately 60 percent lesion was identified and superficial femoral artery and thiswas then treated using a combination glide wire 5 x 40 balloon again insufflated to 10 jennifer of pressure with a good technical result. Allwires and catheters were withdrawn and pressure was held in the right groin patient was given 20 protamine at the completion of the procedure Findings anterior tibial artery stenosis, superficial femoral artery stenosis impression: IMPRESSION: Successful angioplasty of anterior tibial artery and superficial femoral artery This report was electronically signed by ANNA BAEZA M.D. on 07/18/2019 3:15 PM . Michele Boone MD IR ORDERABLES * CT ANGIO ABDOMEN AORTA W RUNOFF (07/02/2019 3:15 PM MEDICAL CLAIMS SPECIALIST) Anatomical Region Laterality Modality Abdomen, Lower Extremity Compute d Tomography 07/02/2019 3:48 PM MEDICAL CLAIMS SPECIALIST Impressions 07/03/2019 3:43 PM MEDICAL CLAIMS SPECIALIST IMPRESSION: Significant atherosclerotic disease, as described above. Dictated by Marianna Langley MD (residential assistant). I, Dr. Ashwin LOPEZ M.D. have personally reviewed and interpreted this examination/study. This report was electronically signed by Ashwin LOPEZ M.D. ??on 07/03/2019 3:43 PM . 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 COMPARISON: No prior study is available for comparison. FINDINGS: Abdominal aorta: Atherosclerotic without significant focal stenosis or aneurysm. Celiac axis and major branches: Patent without significant focal stenosis. Superior mesenteric artery: Patent without significant focal stenosis. Inferior mesenteric artery: Patent without significant focal stenosis. Right renal artery: Patent without significant focal stenosis. An accessory right renal artery is present. Left renal artery: Patent without significant focal stenosis. An accessory left renal artery is present. Right common iliac artery: Patent without significant focal stenosis. Right internal iliac artery: Atherosclerotic with moderate multifocal stenoses. Right external iliac artery: Minimally atherosclerotic but patent without significant focal stenosis. Right common femoral artery: Atherosclerotic with mild multifocal stenoses. Right profunda femoris artery: Patent without significant focal stenosis. Right superficial femoral artery: Mildly atherosclerotic but patent with moderate stenosis distally. Right popliteal artery: Atherosclerotic with up to moderate multifocal stenoses. Right anterior tibial artery: Atherosclerotic with up to severe multifocal stenoses. This vessel crosses the ankle and supplies the dorsalis pedis artery. Right tibioperoneal trunk: Patent without significant focal stenosis. Right posterior tibial artery: Atherosclerotic with multifocal severe stenosis and occlusion with faint reconstitution. This vessel crosses the ankle and supplies the plantar artery which is faintly opacified. Right peroneal artery: Atherosclerotic with multifocal severe stenoses and occlusion. Left common iliac artery: Atherosclerotic but patent without significant focal stenosis. Left internal iliac artery: Atherosclerotic with severe multifocal stenoses. Left external iliac artery: Patent without significant focal stenosis. Left common femoral artery: Atherosclerotic but patent without significant focal stenosis. Left profunda femoris artery: Patent without significant focal stenosis. Left superficial femoral artery: Atherosclerotic with moderate multifocal stenoses. Left popliteal artery: Atherosclerotic with mild multifocal stenoses. Left anterior tibial artery: Atherosclerotic with up to severe multifocal stenosis, more prominent distally. This vessel crosses the ankle and supplies the dorsalis pedis artery. Left tibioperoneal trunk: Patent without significant focal stenosis. Left posterior tibial artery: Atherosclerotic with up to severe multifocal stenoses, more prominent proximally. This vessel crosses the ankle and supplies the plantar artery. Left peroneal artery: Diffuse atherosclerotic with areas of focal occlusion and faint reconstitution proximal to the level of the ankle. Minimal tree-in-bud opacities are present in the left lower lobe which may be infectious/inflammatory or may represent aspiration. Otherwise no focal consolidation is seen in the visible lung bases. There is elevation of the left hemidiaphragm, unchanged from prior chest radiographs. The heart size is normal within a small amount of pericardial fluid. A arterially hyperattenuating observation in hepatic segment 7 likely representing flash filling hemangioma. Multiple other similar enhancing lesions are noted throughout the liver again likely representing hemangiomas. Otherwise, the liver appears normal. The gallbladder is decompressed. The intrahepatic and extrahepatic bile ducts are nondilated. The spleen, pancreas, and adrenal glands appear normal. The kidneys appear normal in size and configuration. There is no evidence of renal calculus or hydronephrosis. The distal esophagus and stomach appear normal. The small bowel and large bowel are normal in caliber without evidence of wall thickening or obstruction. The appendix is not seen; however, no inflammatory changes are seen in the right lower quadrant. No free air or free fluid is identified within the abdomen. There is no abdominal lymphadenopathy. The urinary bladder is distended with fluid and appears normal. The prostate is enlarged, measuring 4.1 cm transversely. No free fluid is seen within the pelvis. There is no pelvic lymphadenopathy. Bone windows demonstrate no suspicious lytic or blastic lesions. The visible osseous structures are intact. Multilevel degenerative changes are noted in the spine. 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 COMPARISON: No prior study is available for comparison. FINDINGS: Abdominal aorta: Atherosclerotic without significant focal stenosis or aneurysm. Celiac axis and major branches: Patent without significant focalstenosis. Superior mesenteric artery: Patent without significant focal stenosis. Inferior mesenteric artery: Patent without significant focal stenosis. Right renal artery: Patent without significant focal stenosis. An accessory right renal artery is present. Left renal artery: Patent without significant focal stenosis. Anaccessory left renal artery is present. Right common iliac artery: Patent without significant focal stenosis. Right internal iliac artery: Atherosclerotic with moderate multifocal stenoses. Right external iliac artery: Minimally atherosclerotic but patentwithout significant focal stenosis. Right common femoral artery: Atherosclerotic with mild multifocalstenoses. Right profunda femoris artery: Patent without significant focalstenosis. Right superficial femoral artery: Mildly atherosclerotic but patent with moderate stenosis distally. Right popliteal artery: Atherosclerotic with up to moderate multifocal stenoses. Right anterior tibial artery: Atherosclerotic with up to severemultifocal stenoses. This vessel crosses the ankle and supplies the dorsalis pedis artery. Right tibioperoneal trunk: Patent without significant focal stenosis. Right posterior tibial artery: Atherosclerotic with multifocal severe stenosis and occlusion with faint reconstitution. This vessel crossesthe ankle and supplies the plantar artery which is faintly opacified. Right peroneal artery: Atherosclerotic with multifocal severe stenosesand occlusion. Left common iliac artery: Atherosclerotic but patent without significant focal stenosis. Left internal iliac artery: Atherosclerotic with severe multifocal stenoses. Left external iliac artery: Patent without significant focal stenosis. Left common femoral artery: Atherosclerotic but patent withoutsignificant focal stenosis. Left profunda femoris artery: Patent without significant focal stenosis. Left superficial femoral artery: Atherosclerotic with moderatemultifocal stenoses. Left popliteal artery: Atherosclerotic with mild multifocal stenoses. Left anterior tibial artery: Atherosclerotic with up to severemultifocal stenosis, more prominent distally. This vessel crosses the ankle and supplies the dorsalis pedis artery. Left tibioperoneal trunk: Patent without significant focal stenosis. Left posterior tibial artery: Atherosclerotic with up to severe multifocal stenoses, more prominent proximally. This vessel crosses the ankle and supplies the plantar artery. Left peroneal artery: Diffuse atherosclerotic with areas of focal occlusion and faint reconstitution proximal to the level of the ankle. Minimal tree-in-bud opacities are present in the left lower lobe whichmay be infectious/inflammatory or may represent aspiration. Otherwise nofocal consolidation is seen in the visible lung bases. There is elevation ofthe left hemidiaphragm, unchanged from prior chest radiographs. The heartsize is normal within a small amount of pericardial fluid. A arterially hyperattenuating observation in hepatic segment 7 likely representing flash filling hemangioma. Multiple other similar enhancing lesions are noted throughout the liver again likely representing hemangiomas. Otherwise, the liver appears normal. The gallbladder is decompressed. The intrahepatic and extrahepatic bile ducts arenondilated. The spleen, pancreas, and adrenal glands appear normal. The kidneysappear normal in size and configuration. There is no evidence of renal calculus or hydronephrosis. The distal esophagus and stomach appear normal. The small bowel andlarge bowel are normal in caliber without evidence of wall thickening or obstruction. The appendix is not seen; however, no inflammatory changes are seen in the right lower quadrant. No free air or free fluid is identified within the abdomen. There is no abdominal lymphadenopathy. The urinary bladder is distended with fluid and appears normal. The prostate is enlarged, measuring 4.1 cm transversely. No free fluid isseen within the pelvis. There is no pelvic lymphadenopathy. Bone windows demonstrate no suspicious lytic or blastic lesions. The visible osseous structures are intact. Multilevel degenerative changesare noted in the spine. IMPRESSION: Significant atherosclerotic disease, as described above. Dictated by Marianna Langley MD (residential assistant). I, Dr. Ashwin LOPEZ M.D. have personally reviewed and interpretedthis examination/study. This report was electronically signed by Ashwin LOPEZ M.D. on 07/03/2019 3:43 PM . Vinicius Maldonado MD CT ORDERABLES * MRI BRAIN WWO CONTRAST (06/16/2019 1:35 PM MEDICAL CLAIMS SPECIALIST) Only the most recent of2 resultswithin the time period is included. Anatomical Region Laterality Modality Head Magnetic Resonan ce 06/18/2019 12:3 3 PM MEDICAL CLAIMS SPECIALIST Impressions 06/18/2019 12:51 PM MEDICAL CLAIMS SPECIALIST IMPRESSION: 1.No evidence of acute intracranial findings. 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 3.Redemonstration of severe right hippocampus volume loss. 4.Additional chronic findings as above. 5.Unchanged enhancing lesion in the right maxillary sinus. 6.Paranasal sinus disease. This report was electronically signed by WOJCIECH ZAMBRANO ??on 06/18/2019 12:51 PM . Narrative 06/18/2019 12:51 PM MEDICAL CLAIMS SPECIALIST MRI BRAIN WWO CONTRAST DATE: 06/16/2019 1:35 PM EXAMINATION: Magnetic resonance imaging (MRI) of the brain without and with contrast HISTORY: G40.911: Intractable epilepsy with status epilepticus, unspecified epilepsy type TECHNIQUE: MRI of the brain was performed prior to and following the uneventful administration of 7 mL intravenous GADAVIST contrast according to seizures protocol. COMPARISON: MRI of the brain from 05/13/2019. FINDINGS: No evidence of acute or chronic hemorrhage is identified. No evidence of acute cerebral infarction is seen. Previously seen diffusion abnormality in the right parietal and occipital lobes have resolved. There is mild cerebral and cerebellar volume loss with associated ex vacuo ventricular dilatation. There is diffuse atrophy of the brainstem, including the cerebellar peduncles, the isabella, and the cerebellar peduncles. There is severe right hippocampal volume loss, unchanged from prior. No mass effect or midline shift is seen. Small infarcts are noted in the isabella, the corpus callosum, the bilateral thalami, and the left basal ganglia. Periventricular, subcortical, and pontine white matter FLAIR hyperintensities likely represent sequelae of chronic small vessel ischemic disease all infarcts are noted in the isabella. No enhancing lesions are identified. The corpus callosum is thinned out. There is a partially empty sella. The posterior fossa, brainstem, and craniocervical junction appear normal. Small left occipital scalp lesions are unchanged and may represent postsurgical cervical lymph nodes. There is moderate paranasal sinus disease. Unchanged 2.1 x 1.6 cm lesion in the anterior aspect of the right maxillary sinus. The visualized portions of the orbits and mastoids appear normal. Normal flow voids are demonstrated in the carotid arteries and basilar artery. The calvarium appears grossly stable. Mild degenerative changes of the imaged upper cervical spine. Procedure Note Wojciech Zambrano MD - 06/18/2019 MRI BRAIN WWO CONTRAST DATE: 06/16/2019 1:35 PM EXAMINATION: Magnetic resonance imaging (MRI) of the brain without and with contrast HISTORY: G40.911: Intractable epilepsy with status epilepticus, unspecified epilepsy type TECHNIQUE: MRI of the brain was performed prior to and following the uneventful administration of 7 mL intravenous GADAVIST contrastaccording to seizures protocol. COMPARISON: MRI of the brain from 05/13/2019. FINDINGS: No evidence of acute or chronic hemorrhage is identified. No evidence of acute cerebral infarction is seen. Previously seen diffusion abnormality in the right parietal and occipital lobes have resolved. There is mild cerebral and cerebellar volume loss with associated ex vacuo ventricular dilatation. There is diffuse atrophy of the brainstem, including the cerebellar peduncles, the isabella, and the cerebellar peduncles. There is severe right hippocampal volume loss, unchanged from prior. No masseffect or midline shift is seen. Small infarcts are noted in the isabella, thecorpus callosum, the bilateral thalami, and the left basal ganglia. Periventricular, subcortical, and pontine white matter FLAIR hyperintensities likely represent sequelae of chronic small vessel ischemic disease all infarcts are noted in the isabella. No enhancinglesions are identified. The corpus callosum is thinned out. There is a partially empty sella. The posterior fossa, brainstem, and craniocervical junction appear normal. Small left occipital scalp lesions are unchanged and may represent postsurgical cervical lymph nodes. There is moderate paranasal sinus disease. Unchanged 2.1 x 1.6 cm lesion in the anterior aspect of the right maxillary sinus. The visualized portions of the orbits and mastoids appear normal. Normal flow voids are demonstrated in the carotid arteries and basilar artery. The calvarium appears grossly stable. Mild degenerative changes of the imaged upper cervical spine. IMPRESSION: 1.No evidence of acute intracranial findings. 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 3.Redemonstration of severe right hippocampus volume loss. 4.Additional chronic findings as above. 5.Unchanged enhancing lesion in the right maxillary sinus. 6.Paranasal sinus disease. This report was electronically signed by WOJCIECH ZAMBRANO on06/18/2019 12:51 PM . Ck Feliciano MD MR ORDERABLES * TSH (05/15/2019 4:52 PM MEDICAL CLAIMS SPECIALIST) Only the most recent of4 resultswithin the time period is included. TSH 1.344 0.350 - 4.940 uIU/mL 05/15/2019 5:34 PM MEDICAL CLAIMS SPECIALIST [facility] Blood BLOOD SPECIMEN / Unknown Lab Venipuncture / Unknown 05/15/2019 4:52 PM MEDICAL CLAIMS SPECIALIST 05/15/2019 4:57 PM MEDICAL CLAIMS SPECIALIST Bipin Becker MD LAB - CHEMISTRY [facility] Organization Address City/State/ZIP Co de Phone Number [address] [phone] * T4 FREE (05/15/2019 4:52 PM MEDICAL CLAIMS SPECIALIST) Only the most recent of2 resultswithin the time period is included. Pathologist [facility] T4 Free 0.9 0.7 - 1.5 ng/dL 05/15/2019 5:34 PM MEDICAL CLAIMS SPECIALIST [facility] Blood BLOOD SPECIMEN / Unknown Lab Venipuncture / Unknown 05/15/2019 4:52 PM MEDICAL CLAIMS SPECIALIST 05/15/2019 4:57 PM MEDICAL CLAIMS SPECIALIST Bipin Becker MD LAB - CHEMISTRY [facility] Performing Organization Address City/[facility]/ZIP Co de Phone Number [address] [phone] * CK + CKMB PANEL (05/15/2019 9:11 AM MEDICAL CLAIMS SPECIALIST) [facility] CK Total 63 30 - 200 Units/L 05/15/2019 9:42 AM MEDICAL CLAIMS SPECIALIST [facility] CK-MB 0.8 0.0 - 6.6 ng/mL 05/15/2019 9:42 AM [facility] Blood BLOOD SPECIMEN / Unknown Lab Venipuncture / Unknown 05/15/2019 9:11 AM MEDICAL CLAIMS SPECIALIST 05/15/2019 9:15 AM MEDICAL CLAIMS SPECIALIST Brian Lawrence MD LAB - CHEMISTRY [facility] Performing Organization Address City/[facility]/ZIP Co de Phone Number [address] [phone] * EEG VIDEO MONITORING (05/12/2019 11:59 AM MEDICAL CLAIMS SPECIALIST) Narrative Ck Feliciano MD - 05/12/2019 11:59 AM MEDICAL CLAIMS SPECIALIST Ck Feliciano MD ? 05/15/2019 10:57 AM EEG REPORT Patient Name: ??Bi Tabor EEG#: ?? [id number] Start Time: ??22:46 PM 05/09/2019 Stop Time: ??11:35 AM 05/12/2019 Clinical History: ??Bi Tabor is a 59 year old male with seizures. ??This continuous video EEG monitoring is ordered to evaluate for seizures in the setting of altered mental status. Current medications Current Facility-Administered Medications Medication ? ? 0.9% NaCl infusion ? ? 0.9% NaCl injection 3 mL And ? ? 0.9% NaCl injection 1-10 mL ? ? amLODIPine (NORVASC) tablet 5 mg ? ? aspirin chew tablet 81 mg ? ? atorvastatin (LIPITOR) tablet 20 mg ? ? clonazePAM (KlonoPIN) tablet 0.5 mg ? ? cyanocobalamin (VITAMIN B-12) tablet 1,000 mcg ? ? divalproex DR (DEPAKOTE) tablet 500 mg Or ? ? valproate (DEPACON) 500 mg in 0.9% NaCl 55 mL IVPB ? ? folic acid (FOLVITE) tablet 1 mg ? ? heparin injection 5,000 Units ? ? lacosamide (VIMPAT) 50 mg in 0.9% NaCl 55 mL IVPB ? ? levETIRAcetam (KEPPRA) 1,500 in 100 mL IVPB Or ? ? levETIRAcetam (KEPPRA) tablet 1,500 mg ? ? tamsulosin (FLOMAX) capsule 0.4 mg ? ? thiamine (VITAMIN B-1) tablet 100 mg Description This is a continuous video EEG monitoring is 21-channels; consisting of 20 channels of EEG obtained from electrodes placed on the scalp according to the international 10-20 system, T1 and T2 electrodes, and one channel of EKG monitoring. ?? Background: 05/09/2019 @ 22:46 PM to 05/10/2019 to 08:17 AM The background was asymmetric, with lateralized right hemispheric slowing. ??No well-developed posterior dominant rhythm was identified. Anterior-posterior gradient was absent. The background was continuous and consisted of generalized poorly-organized admixed polymorphic theta and delta frequency activity of normal amplitude, more visible over the left. ?? Variability was present. ??Reactivity was present. Normal sleep architecture was not seen. Epileptiform discharges were occasionally observed independently over the right central and right occipital region, occasionally forming lateralized periodic discharges (LPDs) of 1 to 2 Hz. Focal electrographic seizures of right hemispheric or midline onset were continuously observed during this recording, most frequently observed over the right posterior quadrant but other right hemispheric onset continued to be observed. ??These seizures less commonly propagated to contralateral hemisphere. ??Clinical semiology were observed in the form of oral automatisms or left facial twitching. 05/10/2019 @ 08:17 AM to 05/11/2019 @ 08:19 AM The background was asymmetric, with lateralized right hemispheric slowing. ??No well-developed posterior dominant rhythm was identified. Anterior-posterior gradient was absent. The background was continuous and consisted of generalized poorly-organized admixed polymorphic theta and delta frequency activity of normal amplitude, more visible over the left. ?? Variability was present. ??Reactivity was present. Normal sleep architecture was not seen. Epileptiform discharges were occasionally observed independently over the right frontal, central and occipital regions, occasionally forming lateralized periodic discharges (LPDs) of 1 to 2 Hz. Focal electrographic seizures of right hemispheric or midline onset were continuously observed during this recording, most frequently observed over the right posterior quadrant but other right hemispheric onset continued to be observed. ??These seizures exhibited less degree of propagation compared to prior segment. 05/11/2019 @ 08:19 AM to 05/12/2019 @ 06:51 AM The background initially consisted of poorly-organized admixed polymorphic theta and delta frequency of normal amplitude, more visible over the left. ??Variability was present. ??Reactivity was present. Normal sleep architecture was not seen. ??The background later transitioned to predominantly moderately-organized theta frequency of normal amplitude, more visible over the left. There was gradual reduction of electrographic seizures, with last electrographic seizure occurring at 09:33 AM on 05/11/2019. ?? There were remnant midline BIRDs that later disspitated. ??There continued to be frequent right central epileptiform discharges (C4) that were occasionally periodic at 1 Hz. The study was reviewed until completion at 11:35 AM on 05/12/2019, without significant changes. Activation procedures were not performed. EKG was observed throughout the recording. IMPRESSION This is an abnormal cEEG due to 1) focal onset seizures, 2) right hemispheric epileptiform discharges and lateralized periodic discharges (LPDs), 3) lateralized right hemispheric slowing, and 4) moderate generalized slowing. CLINICAL CORRELATION: This study is suggestive of focal onset seizures, increased tendency toward seizures, lateralized right hemispheric dysfunction, and moderate encephalopathy. ??Between 05/09/2019 to 05/10/2019, the patient had frequent focal onset seizures of right hemispheric or midline onset, consistent with focal status epilepticus, with clinical correlation in the form of oral automatism or left facial twitching. ??Between 05/10/2019 to 05/11/2019, there continued to be focal status epilepticus, with some degree of improvement in the form of less propagation. Between 05/11/2019 to 05/12/2019, the electrographic seizures dissipated, replaced by predominantly right central discharges and LPDs. ??Last electrographic seizure was identified at 09:33 AM on 05/11/2019. Ck Feliciano MD Nacho Sauer MD NEUROLOGY ORDERABLES * (ABNORMAL) VITAMIN D 25-HYDROXY (05/10/2019 8:32 AM MEDICAL CLAIMS SPECIALIST) Only the most recent of2 resultswithin the time period is included. [facility] Vitamin D, 25 Hydroxy 28.9(L) See comment: ng/mL 05/10/2019 11:15 AM MEDICAL CLAIMS SPECIALIST [facility] Comment: The recommendations for 25-Hydroxy Vitamin D clinical decision points are as follows: ? Deficient: ? <20.0 ng/mL ? Insufficient: ??20.0 - 29.9 ng/mL ? Sufficient: ? > or =30.0 ng/mL If the 25-Hydroxy Vitamin D results are inconsitent with clinical evidence, it is recommended that follow-up testing using a method such as LC/MS/MS be performed to confirm the result. Reference: ?The Endocrine Society Clinical Practice Guidelines. 2010 ? Blood BLOOD SPECIMEN / Unknown Lab Venipuncture / Unknown 05/10/2019 8:32 AM MEDICAL CLAIMS SPECIALIST 05/10/2019 8:44 AM MEDICAL CLAIMS SPECIALIST Devika Cross MD LAB - CHEMISTRY [facility] [address] [place] [address] * PROLACTIN (01/24/2019 2:45 AM CDT) Only the most recent of2 resultswithin the time period is included. Prolactin 5.7 2.1 - 17.7 ng/mL 2019 3:41 AM CDT [email or web address] ([facility]) Comment: REFERENCE INTERVAL: Prolactin Access complete set of age- and/or gender-specific reference intervals for this test in the [facility] Test Directory ([employer]). Performed by [employer], [address] [place] [address] [email or web address], Mio Anderson MD, Lab. Director Blood BLOOD SPECIMEN / Unknown 01/24/2019 2:45 AM CDT 01/24/2019 3:03 AM CDT Sean Martinez MD LAB - CHEMISTRY [facility] Performing Organization Address [facility] Co de Phone Number [email or web address] [facility]) [address] * (ABNORMAL) PHENYTOIN LEVEL TOTAL (01/24/2019 1:54 AM CDT) Only the most recent of9 resultswithin the time period is included. Phenytoin, total <0.5(L) 10.0 - 20.0 mcg/mL 01/24/2019 2:29 AM CDT [facility] Blood BLOOD SPECIMEN / Unknown Venipuncture / Unknown 01/24/2019 1:54 AM CDT 01/24/2019 2:01 AM CDT Nima Yee MD LAB - CHEMISTRY [facility] [address] [phone] * (ABNORMAL) SODIUM BLOOD (01/15/2019 11:03 AM CDT) Only the most recent of2 resultswithin the time period is included. Sodium 132(L) 136 - 145 mmol/L 01/15/2019 12:22 PM CDT [facility] Blood BLOOD SPECIMEN / Unknown Lab Venipuncture / Unknown 01/15/2019 11:03 AM CDT 01/15/2019 11:48 AM CDT Germain Cardoza MD LAB - CHEMISTRY [facility] Performing Organization Address [facility] Co de Phone Number [address] [phone] * OSMOLALITY URINE (01/14/2019 6:13 AM CDT) Osmolality Urine 236 50-1,200 mOsm/kg 01/14/2019 5:06 PM CDT [facility] Urine URINE SPECIMEN OBTAINED BY CLEAN CATCH PROCEDURE / Unknown Collection / Unknown 01/14/2019 6:13 AM CDT 01/14/2019 6:13 AM CDT Germain Cardoza MD LAB - URINE CHEMISTR Y ORDERABLES Performing Organization Address [facility] [facility] [place] [address], [facility] [phone] * (ABNORMAL) CARBAMAZEPINE LEVEL TOTAL (01/14/2019 1:23 AM CDT) Carbamazepine, trough 1.9(L) 4.0 - 12.0 mcg/mL 01/14/2019 1:45 AM CDT [facility] Blood BLOOD SPECIMEN / Unknown Venipuncture / Unknown 01/14/2019 1:23 AM CDT 01/14/2019 1:23 AM CDT Everett Proctor MD LAB - CHEMISTRY [facility] [address] [phone] * OXCARBAZEPINE BLOOD (10/21/2018 12:31 PM CDT) Only the most recent of4 resultswithin the time period is included. Oxcarbazepine Metabolite None Detected 10 - 35 ug/mL 10/27/2018 11:12 AM CDT [facility] ([facility]) Comment: This test was developed and its performance characteristics determined by [facility]. It has not been cleared or approved by the Food and Drug Administration. ?Detection Limit = 1 Blood BLOOD SPECIMEN / Unknown Venipuncture / Unknown 10/21/2018 12:31 PM CDT 10/21/2018 12:35 PM CDT Narrative [facility] ([facility]) - 10/27/2018 11:12 AM CDT Performed at: ??01 - [facility] ??[id number] Clerical Associate: Terence Ramos MD, Phone: ??[phone] Sean Martinez MD LAB - CHEMISTRY [facility] ([facility]) [address] [place] [address] * HIV-1 HIV-2 ANTIGEN/ANTIBODY (09/05/2018 10:52 PM CDT) Only the most recent of3 resultswithin the time period is included. HIV Antigen/Antibod y 1 & 2 Non-reacti ve Non-react phan 09/05/2018 11:33 PM CDT [facility] Comment: Neither HIV-1 p24 Antigen nor HIV-1/HIV-2 Antibodies are detected. ? Blood BLOOD SPECIMEN / Unknown Venipuncture / Unknown 09/05/2018 10:52 PM CDT 09/05/2018 10:55 PM CDT Naa Reyna MD LAB - HEMATOLOGY ORD ERABLES [address] [phone] * CT FACIAL BONES WO CONTRAST (03/31/2018 3:16 PM CDT) Anatomical Region Laterality Modality Head Computed Tomogra phy 03/31/2018 3:30 PM CDT Impressions 03/31/2018 3:51 PM CDT IMPRESSION: 1. No acute intracranial process. 2. No acute facial bone fracture. Dictated by Carrie Paiz M.D. (residential assistant). I, Dr. VIVIAN ORTIZ have personally reviewed and interpreted this examination/study. This report was electronically signed by VIVIAN ORTIZ ??on 03/31/2018 3:51 PM . Narrative 03/31/2018 3:51 PM CDT EXAMINATION: 1. Computed tomography (CT) of the head without contrast 2. CT of the maxillofacial bones, orbits, and paranasal sinuses without contrast HISTORY: Seizure, fall TECHNIQUE: CT of the head and maxillofacial bones, orbits, and paranasal sinuses was performed without contrast according to standard protocol. COMPARISON: Comparison made with the prior CT head without contrast dated 03/03/2018. FINDINGS: Head: There is no acute intracranial hemorrhage. There is no hydrocephalus or extra-axial fluid collection. There is no midline shift. 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 There are small old infarcts in the left lentiform nucleus. Old infarct is seen in the right occipital lobe. There are moderate chronic microvascular ischemic changes. Moderate cerebral and cerebellar volume loss is noted. There are scattered carotid artery calcifications intracranially. Large amount of soft tissue swelling and hematoma is seen in the frontal scalp. There is no depressed skull fracture. Maxillofacial: Other than an old left lamina papyracea fracture, the orbits appear normal. Mucous retention cyst in the lateral recess of the right maxillary sinus and mucosal thickening in the ethmoid and maxillary sinuses are again seen. The hard palate, mandible, and temporomandibular joints appear normal. No acute facial bone fractures are identified. The mastoid air cells are clear. Lower lip swelling is identified. Small amount of cerumen is seen in the right auditory canal. There are severe degenerative changes at C5-6, worse since 08/29/2016 with increased endplate erosions and fracture of anterior osteophyte likely chronic. Procedure Note Vivian Ortiz MD - 03/31/2018 EXAMINATION: 1. Computed tomography (CT) of the head without contrast 2. CT of the maxillofacial bones, orbits, and paranasal sinuses without contrast HISTORY: Seizure, fall TECHNIQUE: CT of the head and maxillofacial bones, orbits, and paranasal sinuses was performed without contrast according to standard protocol. COMPARISON: Comparison made with the prior CT head without contrastdated 03/03/2018. FINDINGS: Head: There is no acute intracranial hemorrhage. There is no hydrocephalus or extra-axial fluid collection. There is no midline shift. 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 There are small old infarctsin the left lentiform nucleus. Old infarct is seen in the right occipital lobe. There are moderate chronic microvascular ischemic changes.Moderate cerebral and cerebellar volume loss is noted. There are scatteredcarotid artery calcifications intracranially. Large amount of soft tissue swelling and hematoma is seen in the frontal scalp. There is no depressed skull fracture. Maxillofacial: Other than an old left lamina papyracea fracture, the orbits appear normal. Mucous retention cyst in the lateral recess of the rightmaxillary sinus and mucosal thickening in the ethmoid and maxillary sinuses are again seen. The hard palate, mandible, and temporomandibular jointsappear normal. No acute facial bone fractures are identified. The mastoid air cells are clear. Lower lip swelling is identified. Small amount ofcerumen is seen in the right auditory canal. There are severe degenerativechanges at C5-6, worse since 08/29/2016 with increased endplate erosions and fracture of anterior osteophyte likely chronic. IMPRESSION: 1. No acute intracranial process. 2. No acute facial bone fracture. Dictated by Carrie Paiz M.D. (residential assistant). I, Dr. VIVIAN ORTIZ have personally reviewed and interpreted this examination/study. This report was electronically signed by VIVIAN ORTIZ on 03/31/2018 3:51PM . Kortney Vega MD CT ORDERABLES * MRI CERVICAL SPINE WO CONTRAST (02/13/2018 10:54 AM CDT) Anatomical Region Laterality Modality Pelvis Magnetic Resonan ce 02/13/2018 1:33 PM CDT Impressions 02/13/2018 6:38 PM CDT IMPRESSION: 1. New gentle kyphosis of the cervical spine and new spondylolisthesis at C4-5. 2. Stable severe degenerative disc disease at C5-6, C6-7. 3. Stable multilevel degenerative joint disease as described above. 4. No visible cord compression, abnormal signal intensity in the cord, or other significant changes from CT dated 08/29/2016. This report was approved ??by Jannette Hubbard M.D. ?? on 02/13/2018 2:30 PM . I, Dr. JOSE ALEJANDRO WILLSON have personally reviewed and interpreted this examination/study. This report was electronically signed by JOSE ALEJANDRO WILLSON ??on 02/13/2018 6:38 PM . Narrative 02/13/2018 6:38 PM CDT EXAMINATION: Magnetic resonance imaging (MRI) of the cervical spine without contrast HISTORY: 58-year-old male with gait instability and neck pain TECHNIQUE: MRI of the cervical spine was performed without contrast according to standard protocol. FINDINGS: Comparison made with CT cervical spine, 08/29/2016. There is gentle kyphosis centered at C5-6. There is mild retrolisthesis at C5-6 and C6-7. Vertebral bodies are normal in height without evidence of compression fractures. The craniocervical junction and visualized portions of the posterior fossa appear normal. The spinal cord appears normal. The anterior and posterior longitudinal ligaments as well as the posterior ligamentous complex appear intact. There is intervertebral disc height loss at C5-6 and C6-7. There are Modic type 1 endplate changes at these levels. No soft tissue abnormality is identified. Normal flow voids are identified in the vertebral arteries. There is atherosclerosis of the left carotid bifurcation. ??Old lacunar infarctions are seen in the isabella and there is an old small left cerebellar hemisphere infarction. Food debris is present in the dilated esophagus without esophageal wall thickening, possibly representing severe gastroesophageal reflux disease. C2-3: There is no disc bulge. There is no central canal stenosis. There is moderate-severe left facet osteoarthritis. There is moderate-severe left uncovertebral joint osteoarthritis. There is no significant neural foraminal stenosis. C3-4: There is no disc bulge. There is no central canal stenosis. There is moderate bilateral facet osteoarthritis. There is no uncovertebral joint osteoarthritis. There is no neural foraminal stenosis. C4-5: There is broad-based posterior disc bulge. There is mild central canal stenosis. There is no age inappropriate uncovertebral joint or facet joint osteoarthritis. There is mild left neural foraminal stenosis. C5-6: There is no disc bulge. There is no central canal stenosis. There is mild-moderate facet osteoarthritis. There is moderate bilateral uncovertebral joint osteoarthritis. There is mild bilateral neural foraminal stenosis. C6-7: There is broad-based posterior disc bulge. There is no central canal stenosis. There is mild facet osteoarthritis. There is moderate bilateral uncovertebral joint osteoarthritis. There is mild neural foraminal stenosis. C7-T1: There is no disc bulge. There is no central canal stenosis. There is no facet osteoarthritis. There is no uncovertebral joint osteoarthritis. There is no neural foraminal stenosis. Procedure Note Jose Alejandro Willson MD - 02/13/2018 EXAMINATION: Magnetic resonance imaging (MRI) of the cervical spine without contrast HISTORY: 58-year-old male with gait instability and neck pain TECHNIQUE: MRI of the cervical spine was performed without contrast according to standard protocol. FINDINGS: Comparison made with CT cervical spine, 08/29/2016. There is gentle kyphosis centered at C5-6. There is mild retrolisthesisat C5-6 and C6-7. Vertebral bodies are normal in height without evidence of compression fractures. The craniocervical junction and visualizedportions of the posterior fossa appear normal. The spinal cord appears normal.The anterior and posterior longitudinal ligaments as well as the posterior ligamentous complex appear intact. There is intervertebral disc height loss at C5-6 and C6-7. There are Modic type 1 endplate changes at these levels. No soft tissue abnormality is identified. Normal flow voids are identified in the vertebral arteries. There is atherosclerosis of theleft carotid bifurcation. Old lacunar infarctions are seen in the isabella and there is an old small left cerebellar hemisphere infarction. Food debris is present in the dilated esophagus without esophageal wall thickening, possibly representing severe gastroesophageal reflux disease. C2-3: There is no disc bulge. There is no central canal stenosis. Thereis moderate-severe left facet osteoarthritis. There is moderate-severe left uncovertebral joint osteoarthritis. There is no significant neural foraminal stenosis. C3-4: There is no disc bulge. There is no central canal stenosis. Thereis moderate bilateral facet osteoarthritis. There is no uncovertebral joint osteoarthritis. There is no neural foraminal stenosis. C4-5: There is broad-based posterior disc bulge. There is mild central canal stenosis. There is no age inappropriate uncovertebral joint orfacet joint osteoarthritis. There is mild left neural foraminal stenosis. C5-6: There is no disc bulge. There is no central canal stenosis. Thereis mild-moderate facet osteoarthritis. There is moderate bilateral uncovertebral joint osteoarthritis. There is mild bilateral neural foraminal stenosis. C6-7: There is broad-based posterior disc bulge. There is no centralcanal stenosis. There is mild facet osteoarthritis. There is moderatebilateral uncovertebral joint osteoarthritis. There is mild neural foraminal stenosis. C7-T1: There is no disc bulge. There is no central canal stenosis. There is no facet osteoarthritis. There is no uncovertebral joint osteoarthritis. There is no neural foraminal stenosis. IMPRESSION: 1. New gentle kyphosis of the cervical spine and new spondylolisthesisat C4-5. 2. Stable severe degenerative disc disease at C5-6, C6-7. 3. Stable multilevel degenerative joint disease as described above. 4. No visible cord compression, abnormal signal intensity in the cord,or other significant changes from CT dated 08/29/2016. This report was approved by Jannette Hubbard M.D. on 02/13/2018 2:30 PM. I, Dr. JOSE ALEJANDRO WILLSON have personally reviewed and interpreted this examination/study. This report was electronically signed by JOSE ALEJANDRO WILLSON on 02/13/2018 6:38 PM . Ck Feliciano MD MR ORDERABLES * XR CLAVICLE RIGHT 2VW (10/14/2017 5:24 PM CDT) Anatomical Region Laterality Modality Upper Extremity, Chest Radiograp hic Imaging 10/15/2017 8:48 AM CDT Impressions 10/15/2017 11:01 AM CDT FINDINGS/IMPRESSION: Comparison is made with a study from 10/13/2017. A mildly displaced fracture of the distal clavicle is unchanged in alignment. Dictated by Gaurav Kumar MD (residential assistant). This report was approved ??by Gaurav Kumar M.D. ?? on 10/15/2017 10:[address] EDILBERTO Thomason MD have personally reviewed and interpreted this examination/study. This report was electronically signed by Dr. EDILBERTO MARTINEZ MD ??on 10/15/2017 11:01 AM . Narrative 10/15/2017 11:01 AM CDT EXAMINATION: XR CLAVICLE RIGHT 2VW HISTORY: M89.8X1: Clavicle pain Procedure Note Edilberto Martinez MD - 10/15/2017 EXAMINATION: XR CLAVICLE RIGHT 2VW HISTORY: M89.8X1: Clavicle pain FINDINGS/IMPRESSION: Comparison is made with a study from 10/13/2017. A mildly displaced fracture of the distal clavicle is unchanged in alignment. Dictated by Gaurav Kumar MD (residential assistant). This report was approved by Gaurav Kumar M.D. on 10/15/2017 10:[address] EDILBERTO Thomason MD have personally reviewed and interpretedthis examination/study. This report was electronically signed by Dr. EDILBERTO MARTINEZ MD on 10/15/2017 11:01 AM . Raul Nolasco Kazedda WILL DIAGNOSTIC IMAGING ORDERABLES * XR SHOULDER RIGHT 2VW OR MORE (10/13/2017 11:48 AM CDT) Anatomical Region Laterality Modality Upper Extremity Radiographic Adan ging 10/13/2017 11:5 2 AM CDT Impressions 10/13/2017 1:53 PM CDT IMPRESSION: Distal right clavicle fracture with mild inferior displacement of the distal fragment. Dictated by Riky Perez MD (residential assistant). Dr. MADHURI Thomason M.D. have personally reviewed and interpreted this examination/study. This report was electronically signed by MADHURI FRANCO M.D. ??on 10/13/2017 1:53 PM . Narrative 10/13/2017 1:53 PM CDT EXAMINATION: XR SHOULDER RIGHT 2VW OR MORE HISTORY: M89.8X1: Clavicle pain COMPARISON: No prior study is available for comparison. FINDINGS: A distal right clavicle fracture has mild inferior displacement of the distal fragment. The glenohumeral joint is in anatomic alignment. ? Bone density and texture are normal. Soft tissue swelling is seen about the clavicle. Procedure Note Madhuri Franco MD - 10/13/2017 EXAMINATION: XR SHOULDER RIGHT 2VW OR MORE HISTORY: M89.8X1: Clavicle pain COMPARISON: No prior study is available for comparison. FINDINGS: A distal right clavicle fracture has mild inferior displacement of the distal fragment. The glenohumeral joint is in anatomic alignment.Bone density and texture are normal. Soft tissue swelling is seen about the clavicle. IMPRESSION: Distal right clavicle fracture with mild inferior displacement of the distal fragment. Dictated by Riky Perez MD (residential assistant). Dr. MADHURI Thomason M.D. have personally reviewed and interpreted this examination/study. This report was electronically signed by MADHURI FRANCO M.D. on 10/13/2017 1:53 PM . Power Epperson MD DIAGNOSTIC IMAGING O RDERABLES * XR CHEST 1VW (10/13/2017 11:00 AM CDT) Anatomical Region Laterality Modality Chest Radiographic Adan ging 10/13/2017 1:04 PM CDT Impressions 10/13/2017 1:51 PM CDT FINDINGS/IMPRESSION: There is no focal consolidation, pleural effusion, or pneumothorax. The cardiomediastinal silhouette is normal. A right clavicle fracture is partially imaged. Dictated by Riky Perez MD (residential assistant). Dr. MADHURI Thomason M.D. have personally reviewed and interpreted this examination/study. This report was electronically signed by MADHURI FRANCO M.D. ??on 10/13/2017 1:51 PM . Narrative 10/13/2017 1:51 PM CDT EXAMINATION: XR CHEST 1VW HISTORY: M89.8X1: Clavicle pain COMPARISON: Comparison is made with a study from 04/11/2015. Procedure Note Madhuri Franco MD - 10/13/2017 EXAMINATION: XR CHEST 1VW HISTORY: M89.8X1: Clavicle pain COMPARISON: Comparison is made with a study from 04/11/2015. FINDINGS/IMPRESSION: There is no focal consolidation, pleural effusion, or pneumothorax. The cardiomediastinal silhouette is normal. A right clavicle fracture is partially imaged. Dictated by Riky Perez MD (residential assistant). I, Dr. MADHURI FRANCO M.D. have personally reviewed and interpreted this examination/study. This report was electronically signed by MADHURI FRANCO M.D. on 10/13/2017 1:51 PM . Power Epperson MD DIAGNOSTIC IMAGING O RDERABLES * DRUG ABUSE PANEL 10-20+ETHANOL URINE NO CONFIRM (08/28/2016 1:00 PM CDT) Only the most recent of3 resultswithin the time period is included. Amphetamines Screen Urine Negative Negative: < 1000 ng/mL [facility] Barbiturates Screen Urine Negative Negative: < 200 ng/mL [facility] Benzodiazepine Screen Urine Negative Negative: < 200 ng/mL [facility] Opiates Urine Negative Negative: < 300 ng/mL [facility] Cocaine Metabolites Urine Negative Negative: < 300 ng/mL [facility] Phencyclidine Screen Urine Negative Negative: < 25 ng/ml [facility] Cannabinoids Screen Urine Negative Negative: <50 ng/mL [facility] Methadone Screen Urine Negative Negative: < 300 ng/mL [facility] Urine specimen (specimen) URINE / Unknown 08/28/2016 1:00 PM CDT 08/28/2016 1:03 PM CDT Narrative [facility] - 08/28/2016 1:23 PM CDT The Urine Toxicology Screening Panel does not screen for Propoxyphene, Meprobamate, Carisoprodol, Trazodone, qvga-pqz-litzren medications and/or volatiles (Acetone, Isopropanol, Methanol or Ethylene Glycol). Ethanol, Salicylate, Acetaminophen, Tricyclic Antidepressants and several therapeutic drugs may be individually assayed in serum or plasma specimen. Toxicology testing by the [facility] is an aid to medical diagnosis and treatment of patients. No documented chain of custody was maintained. Results are intended to be used for clinical purposes only. ? Elizabeth Hernandez MD LAB - URINE CHEMISTR Y ORDERABLES Performing Organization Address [facility] de Phone Number [address] [phone] * ALBUMIN BLOOD (08/28/2016 3:59 AM CDT) Albumin 3.9 3.4 - 5.0 g/dL [facility] Blood specimen (specimen) BLOOD SPECIMEN / Unknown 08/28/2016 3:59 AM CDT 08/28/2016 4:27 AM CDT Crescencio Carney MD LAB - CHEMISTRY ORDE RABSHILPA Performing Organization Address [facility] de Phone Number [address] [phone] * GLUCOSE - POINT OF CARE (AMB) [facility] (08/27/2016 7:37 PM CDT) Only the most recent of4 resultswithin the time period is included. Elizabeth Hernandez MD LAB - POINT OF CARE ORDERABLES Performing Organization Address [facility] de Phone Number [facility] * GLUCOSE ACCUCHECK (08/27/2016 7:37 PM CDT) Only the most recent of3 resultswithin the time period is included. Glucose, Fingerstick 109 70-115mg/d L mg/dL ORDO YBARRA ([facility]) Comment:Box Toe Maker: LUCIO Matamoros 08/27/2016 7:37 PM CDT Zulma Quijano MD LAB - CHEMISTRY [facility]) * MRI ANGIO NECK W CONTRAST (04/13/2015 11:02 AM MEDICAL CLAIMS SPECIALIST) Anatomical Region Laterality Modality Head Other Impressions 04/13/2015 3:53 PM MEDICAL CLAIMS SPECIALIST IMPRESSION: 1. There is no evidence of acute ischemic insults. 2. . Right occipital cortical/subcortical T2/FLAIR hyperintensity with no restricted diffusion, corresponding to the area of low attenuation seen on the recent CT dated 04/11/15, likely representing subacute right occipital lobe small volume Infarct. 3. Scattered bilateral basal ganglia, subcortical and deep periventricular white matter, and pontine foci of abnormal T2/FLAIR hyperintensity without diffusion restriction, most pronounced at both thalami, likely combination of chronic lacunar infarct with chronic small vessel ischemic disease. 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 4. The left vertebral artery is not well visualized, either completely occluded or congenitally small. No other large arterial occlusions or significant stenoses identified in the head or neck. I, Dr. JASON SANCHEZ M.D. have personally reviewed and interpreted this examination/study. This report was electronically signed by JASON SANCHEZ M.D. ??on 04/13/2015 3:53 PM . Narrative 04/13/2015 3:53 PM MEDICAL CLAIMS SPECIALIST EXAMINATION: 1. Magnetic resonance imaging (MRI) of the brain without contrast 2. Magnetic resonance angiography (MRA) of the head without contrast 3. MRA of the neck without and with contrast HISTORY: Truncal ataxia, nystagmus and difficulty with balance, concerning for pontine stroke. TECHNIQUE: MRI of the brain was performed without contrast according to standard protocol. MRA of the [id number]-Khsbqi was performed using a yvxu-cs-ymzmol technique without contrast. Finally, contrast-enhanced MRA of the neck was performed following the uneventful administration of 6 mL intravenous gadolinium contrast. FINDINGS: Comparison is done with CT of the head dated 04/11/15 and 01/05/10. Brain: No evidence of acute or chronic hemorrhage is identified. No evidence of acute cerebral infarction is seen. There is right occipital cortical/subcortical T2/FLAIR hyperintensity with no restricted diffusion, corresponding to the area of low attenuation seen on the recent CT dated 04/11/15, likely representing subacute right occipital lobe small volume Infarct. Scattered T2/FLAIR hyperintensity foci are seen scattered in the bilateral basal ganglia, subcortical and deep periventricular white matter, and the isabella, most prominent at both thalamic regions, showing no restricted diffusion, likely combination of lacunar infarct with chronic small vessel ischemic disease. There is a severe atrophy involving the brainstem. There is mild cerebral volume loss with associated ex vacuo ventricular dilatation. No mass effect or midline shift is seen. The corpus callosum and sella appear normal. Otherwise the craniocervical junction appear normal. Mild bilateral ethmoid and maxillary sinus mucosal thickening is seen, otherwise the visualized portions of the orbits, paranasal sinuses, and mastoids appear normal. Normal flow voids are demonstrated in the carotid arteries and basilar artery. The calvarium and visualized cervical spine appear normal. Angiographic findings: The neck MRA was degraded due to poor opacification of the arteries. The visualized aortic arch appears normal. The configuration of the brachiocephalic vessels is typical. The innominate artery and both subclavian arteries appear normal. The common carotid arteries and carotid bifurcations appear normal. The cervical internal carotid and right vertebral arteries appear normal. The left vertebral arteries are not well visualized, either completely occluding or congenitally small. The distal internal carotid arteries appear normal. Codominant accessory right MCA artery is noted (normal variant). Otherwise the anterior and middle cerebral arteries appear normal. The distal vertebral arteries appear normal. The basilar artery and posterior cerebral arteries appear normal. No aneurysms or intracranial stenoses are identified. Procedure Note Jason Sanchez MD - 08/27/2017 EXAMINATION: 1. Magnetic resonance imaging (MRI) of the brain without contrast 2. Magnetic resonance angiography (MRA) of the head without contrast 3. MRA of the neck without and with contrast HISTORY: Truncal ataxia, nystagmus and difficulty with balance, concerningfor pontine stroke. TECHNIQUE: MRI of the brain was performed without contrast according tostandard protocol. MRA of the nypxpi-oi-Cmumbu was performed using [id number]-ponjkq technique without contrast. Finally, contrast-enhanced MRAof the neck was performed following the uneventful administration of 6 mL intravenous gadolinium contrast. FINDINGS: Comparison is done with CT of the head dated 04/11/15 and01/05/10. Brain: No evidence of acute or chronic hemorrhage is identified. No evidence ofacute cerebral infarction is seen. There is right occipital cortical/subcortical T2/FLAIR hyperintensity withno restricted diffusion, corresponding to the area of low attenuation seenon the recent CT dated 04/11/15, likely representing subacute rightoccipital lobe small volume Infarct. Scattered T2/FLAIR hyperintensity foci are seen scattered in the bilateralbasal ganglia, subcortical and deep periventricular white matter, and thepons, most prominent at both thalamic regions, showing no restricteddiffusion, likely combination of lacunar infarct with chronic small vessel ischemic disease. There is asevere atrophy involving the brainstem. There is mild cerebral volume losswith associated ex vacuo ventricular dilatation. No mass effect or midlineshift is seen. The corpus callosum and sella appear normal. Otherwise the craniocervical junctionappear normal. Mild bilateral ethmoid and maxillary sinus mucosal thickening is seen,otherwise the visualized portions of the orbits, paranasal sinuses, andmastoids appear normal. Normal flow voids are demonstrated in the carotidarteries and basilar artery. The calvarium and visualized cervical spine appear normal. Angiographic findings: The neck MRA was degraded due to poor opacification of the arteries. Thevisualized aortic arch appears normal. The configuration of thebrachiocephalic vessels is typical. The innominate artery and bothsubclavian arteries appear normal. The common carotid arteries and carotid bifurcations appear normal. The cervicalinternal carotid and right vertebral arteries appear normal. The leftvertebral arteries are not well visualized, either completely occluding orcongenitally small. The distal internal carotid arteries appear normal. Codominant accessoryright MCA artery is noted (normal variant). Otherwise the anterior andmiddle cerebral arteries appear normal. The distal vertebral arteriesappear normal. The basilar artery and posterior cerebral arteries appear normal. No aneurysms or intracranialstenoses are identified. IMPRESSION IMPRESSION: 1. There is no evidence of acute ischemic insults. 2. . Right occipital cortical/subcortical T2/FLAIR hyperintensity with norestricted diffusion, corresponding to the area of low attenuation seen onthe recent CT dated 04/11/15, likely representing subacute right occipitallobe small volume Infarct. 3. Scattered bilateral basal ganglia, subcortical and deep periventricularwhite matter, and pontine foci of abnormal T2/FLAIR hyperintensity withoutdiffusion restriction, most pronounced at both thalami, likely combinationof chronic lacunar infarct with chronic small vessel ischemic disease. There is severe atrophy of thebrainstem, which is more pronounced than atrophy of the other regions ofthe cerebrum and cerebellum. 4. The left vertebral artery is not well visualized, either completelyoccluded or congenitally small. No other large arterial occlusions orsignificant stenoses identified in the head or neck. I, Dr. JASON SANCHEZ M.D. have personally reviewed and interpreted thisexamination/study. This report was electronically signed by JASON SANCHEZ M.D. on 04/13/20153:53 PM . Carrie Staton MD MR ORDERABLES * MRI ANGIO BRAIN ARTERIAL WO CONT (04/13/2015 11:02 AM MEDICAL CLAIMS SPECIALIST) Anatomical Region Laterality Modality Head Other Impressions 04/13/2015 3:53 PM MEDICAL CLAIMS SPECIALIST IMPRESSION: 1. There is no evidence of acute ischemic insults. 2. . Right occipital cortical/subcortical T2/FLAIR hyperintensity with no restricted diffusion, corresponding to the area of low attenuation seen on the recent CT dated 04/11/15, likely representing subacute right occipital lobe small volume Infarct. 3. Scattered bilateral basal ganglia, subcortical and deep periventricular white matter, and pontine foci of abnormal T2/FLAIR hyperintensity without diffusion restriction, most pronounced at both thalami, likely combination of chronic lacunar infarct with chronic small vessel ischemic disease. 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 4. The left vertebral artery is not well visualized, either completely occluded or congenitally small. No other large arterial occlusions or significant stenoses identified in the head or neck. I, Dr. JASON SANCHEZ M.D. have personally reviewed and interpreted this examination/study. This report was electronically signed by JASON SANCHEZ M.D. ??on 04/13/2015 3:53 PM . Narrative 04/13/2015 3:53 PM MEDICAL CLAIMS SPECIALIST EXAMINATION: 1. Magnetic resonance imaging (MRI) of the brain without contrast 2. Magnetic resonance angiography (MRA) of the head without contrast 3. MRA of the neck without and with contrast HISTORY: Truncal ataxia, nystagmus and difficulty with balance, concerning for pontine stroke. TECHNIQUE: MRI of the brain was performed without contrast according to standard protocol. MRA of the mnpekl-yu-Yqtmjn was performed using a knsd-mk-pyknib technique without contrast. Finally, contrast-enhanced MRA of the neck was performed following the uneventful administration of 6 mL intravenous gadolinium contrast. FINDINGS: Comparison is done with CT of the head dated 04/11/15 and 01/05/10. Brain: No evidence of acute or chronic hemorrhage is identified. No evidence of acute cerebral infarction is seen. There is right occipital cortical/subcortical T2/FLAIR hyperintensity with no restricted diffusion, corresponding to the area of low attenuation seen on the recent CT dated 04/11/15, likely representing subacute right occipital lobe small volume Infarct. Scattered T2/FLAIR hyperintensity foci are seen scattered in the bilateral basal ganglia, subcortical and deep periventricular white matter, and the isabella, most prominent at both thalamic regions, showing no restricted diffusion, likely combination of lacunar infarct with chronic small vessel ischemic disease. There is a severe atrophy involving the brainstem. There is mild cerebral volume loss with associated ex vacuo ventricular dilatation. No mass effect or midline shift is seen. The corpus callosum and sella appear normal. Otherwise the craniocervical junction appear normal. Mild bilateral ethmoid and maxillary sinus mucosal thickening is seen, otherwise the visualized portions of the orbits, paranasal sinuses, and mastoids appear normal. Normal flow voids are demonstrated in the carotid arteries and basilar artery. The calvarium and visualized cervical spine appear normal. Angiographic findings: The neck MRA was degraded due to poor opacification of the arteries. The visualized aortic arch appears normal. The configuration of the brachiocephalic vessels is typical. The innominate artery and both subclavian arteries appear normal. The common carotid arteries and carotid bifurcations appear normal. The cervical internal carotid and right vertebral arteries appear normal. The left vertebral arteries are not well visualized, either completely occluding or congenitally small. The distal internal carotid arteries appear normal. Codominant accessory right MCA artery is noted (normal variant). Otherwise the anterior and middle cerebral arteries appear normal. The distal vertebral arteries appear normal. The basilar artery and posterior cerebral arteries appear normal. No aneurysms or intracranial stenoses are identified. Procedure Note Jason Sanchez MD - 08/27/2017 EXAMINATION: 1. Magnetic resonance imaging (MRI) of the brain without contrast 2. Magnetic resonance angiography (MRA) of the head without contrast 3. MRA of the neck without and with contrast HISTORY: Truncal ataxia, nystagmus and difficulty with balance, concerningfor pontine stroke. TECHNIQUE: MRI of the brain was performed without contrast according tostandard protocol. MRA of the oswttx-es-Cideuj was performed using hhzyc-lz-jqlnhh technique without contrast. Finally, contrast-enhanced MRAof the neck was performed following the uneventful administration of 6 mL intravenous gadolinium contrast. FINDINGS: Comparison is done with CT of the head dated 04/11/15 and01/05/10. Brain: No evidence of acute or chronic hemorrhage is identified. No evidence ofacute cerebral infarction is seen. There is right occipital cortical/subcortical T2/FLAIR hyperintensity withno restricted diffusion, corresponding to the area of low attenuation seenon the recent CT dated 04/11/15, likely representing subacute rightoccipital lobe small volume Infarct. Scattered T2/FLAIR hyperintensity foci are seen scattered in the bilateralbasal ganglia, subcortical and deep periventricular white matter, and thepons, most prominent at both thalamic regions, showing no restricteddiffusion, likely combination of lacunar infarct with chronic small vessel ischemic disease. There is asevere atrophy involving the brainstem. There is mild cerebral volume losswith associated ex vacuo ventricular dilatation. No mass effect or midlineshift is seen. The corpus callosum and sella appear normal. Otherwise the craniocervical junctionappear normal. Mild bilateral ethmoid and maxillary sinus mucosal thickening is seen,otherwise the visualized portions of the orbits, paranasal sinuses, andmastoids appear normal. Normal flow voids are demonstrated in the carotidarteries and basilar artery. The calvarium and visualized cervical spine appear normal. Angiographic findings: The neck MRA was degraded due to poor opacification of the arteries. Thevisualized aortic arch appears normal. The configuration of thebrachiocephalic vessels is typical. The innominate artery and bothsubclavian arteries appear normal. The common carotid arteries and carotid bifurcations appear normal. The cervicalinternal carotid and right vertebral arteries appear normal. The leftvertebral arteries are not well visualized, either completely occluding orcongenitally small. The distal internal carotid arteries appear normal. Codominant accessoryright MCA artery is noted (normal variant). Otherwise the anterior andmiddle cerebral arteries appear normal. The distal vertebral arteriesappear normal. The basilar artery and posterior cerebral arteries appear normal. No aneurysms or intracranialstenoses are identified. IMPRESSION IMPRESSION: 1. There is no evidence of acute ischemic insults. 2. . Right occipital cortical/subcortical T2/FLAIR hyperintensity with norestricted diffusion, corresponding to the area of low attenuation seen onthe recent CT dated 04/11/15, likely representing subacute right occipitallobe small volume Infarct. 3. Scattered bilateral basal ganglia, subcortical and deep periventricularwhite matter, and pontine foci of abnormal T2/FLAIR hyperintensity withoutdiffusion restriction, most pronounced at both thalami, likely combinationof chronic lacunar infarct with chronic small vessel ischemic disease. There is severe atrophy of thebrainstem, which is more pronounced than atrophy of the other regions ofthe cerebrum and cerebellum. 4. The left vertebral artery is not well visualized, either completelyoccluded or congenitally small. No other large arterial occlusions orsignificant stenoses identified in the head or neck. I, Dr. JASON SANCHEZ M.D. have personally reviewed and interpreted thisexamination/study. This report was electronically signed by JASON SANCHEZ M.D. on 04/13/20153:53 PM . Carrie Staton MD MR ORDERABLES * (ABNORMAL) BLOOD GASES ART (04/11/2015 6:22 AM MEDICAL CLAIMS SPECIALIST) pH Arterial 7.38 7.35 - 7.45 [facility] pCO2 Arterial 36 35 - 45 mmHg [facility] pO2 Arterial 134(H) 77 - 101 mmHg [facility] HCO3 Arterial 20.9(L) 22.0 - 26.0 mmol/L [facility] TCO2 Arterial 22.0(L) 25.0 - 29.0 mmol/L [facility] Base Excess Arterial -3.6(L) -2.0 - 2.0 mmol/L [facility] Hemoglobin Arterial 12.5(L) 13.5 - 17.5 g/dL [facility] Oxyhemoglobin Arterial 94.5(L) 95.0 - 100.0 % [facility] Carboxyhemoglobin 3.5(H) 0.0 - 3.0 % [facility] Methemoglobin 0.3 0.0 - 2.0 % [facility] FI O2 Arterial 20.0 % [facility] Blood specimen (specimen) BLOOD SPECIMEN / Unknown 04/11/2015 6:22 AM MEDICAL CLAIMS SPECIALIST 04/11/2015 6:22 AM MEDICAL CLAIMS SPECIALIST Narrative [facility] - 04/11/2015 6:26 AM MEDICAL CLAIMS SPECIALIST FIO2->20 Naa Reyna MD LAB - BLOOD GASES OR DERABLES [facility] [address] [place] [address] Care Teams Video Journalist Relationship Specialty Start Date End Date Dany Monsivais MD [address] [place] [address] [id number] PCP - General Family Medicine 11/18/23 Elizabeth Sullivan RN [facility] [employer] 10/14/17
--- OUTSIDE RECORDS SUMMARY | 2024-06-08 05:28 | XMS_ITS | Referral Summary ---
Author Organization [facility] Address [address] [place] [address] Care Team Providers Care Stitch Separator Name Role Phone Elizabeth Sullivan RN Unavailable [phone] Dany Monsivais MD Primary Care Provider [phone] Source Comments [facility],non-owned Affiliates and Associated Physician Practices is amultiple site organization consisting of ambulatory clinics and hospital sitesin [place], [place], [place] and [place]. This disclosure is being madepursuant to the Care Everywhere program and may not contain all information available regarding this patient. Last updated 18.[facility] Encounters Date Type Department Care Team Description 06/07/2024 Travel 06/07/2024 5:04 PM PROFESSOR OF MECHANICAL ENGINEERING - Present Hospital Encounter [facility] [address] [place] [phone] Elizabeth Hernandez MD Miller, Chad S, MD Naidoo, Shiva F, MD Abdominal pain, generalized (Primary Dx); Hematemesis with nausea; G tube feedings (HCC) 05/15/2024 Travel 05/15/2024 10:08 AM PROFESSOR OF MECHANICAL ENGINEERING - 05/15/2024 11:44 PM PROFESSOR OF MECHANICAL ENGINEERING Emergency [facility] [address] [place] [phone] Caio Elder MD Garcia, Andrew M, MD Abdominal pain, generalized (Primary Dx); Diverticulosis; Prostate enlargement; Nephrolithiasis Discharge Disposition: [facility] Facility 05/03/2024 Travel 04/30/2024 9:21 PM PROFESSOR OF MECHANICAL ENGINEERING - 05/01/2024 2:23 AM [facility] Emergency [facility] [address] [place] [address] Elmo Medeiros MD Kraemer, Carl M, MD Ground-level fall; Concussion with unknown loss of consciousness status, initial encounter; NPH (normal pressure hydrocephalus) ([facility]) Discharge Disposition: [facility] Acute Care 04/30/2024 Travel 04/21/2024 Travel 04/21/2024 3:04 PM [facility] - 04/21/2024 9:01 PM [facility] Emergency [facility] [address] [place] [address] Alden Iglesias MD Attention to G-tube (HCC) (Primary Dx); Irritation around percutaneous endoscopic gastrostomy (PEG) tube site (HCC); Tracheostomy care ([facility]) Discharge Disposition: Home or Self Care 03/28/2024 Telephone [facility] - Neurology [address] [place] [address] Yana Rm APRN-[facility] Care Management from Last 3 Months Allergies Active Allergy Reactions Criticality Noted Date [...] tachycardia 06/28/2022 12/11/2022 Bacterial pneumonia 06/28/2022 11/10/19 23 Hypoxia 06/12/2022 06/12/2022 Pulmonary infiltrate 05/30/2022 023 [...] No evidence of infection Urine cultures from [facility] last month were negative growth as well with similar findings urinalysis Symptoms may be due to chronic urinary retention and he will require postvoid residuals and urologic evaluation if significant retention is noted during this admission. I will put him on some Flomax and observe and discontinue Jensen in 48 hours. Seizure 10/13/2017 09/24/2022 Syncope and collapse 06/26/2015 023 Immunizations Name Administration Dates Next Due Valentinamarla Brooks primary monoval ent 12+ yr 0.3mL Purple [...] and heating? Not hard at all 06/19/2023 [facility] - Occupational Stress [...] place to sleep or slept in a senior care (including now)? No 06/19/2023 Sex and Gender Information Value Date Recorded Sex Assigned at Not on file Gender Identity Not on file Sexual Orientation Not on file Last Filed Vital Signs Vital Sign Reading Time Taken Comments Blood Pressure 137/94 06/08/2024 4:00 AM PROFESSOR OF MECHANICAL ENGINEERING Pulse 122 06/07/2024 8:04 PM PROFESSOR OF MECHANICAL ENGINEERING Temperature 37.1 ??C (98.8 ??F) 06/07/2024 10:[address] Respiratory Rate 16 06/07/2024 8:04 PM PROFESSOR OF MECHANICAL ENGINEERING Oxygen Saturation 97% 06/08/2024 5:06 AM PROFESSOR OF MECHANICAL ENGINEERING Inhaled Oxygen Concentration 28% 06/08/2024 5 :06 AM PROFESSOR OF MECHANICAL ENGINEERING Weight 77.1 kg (170 lb) 06/07/2024 5:08 PM PROFESSOR OF MECHANICAL ENGINEERING Height 175.3 cm (5' 9 ) 06/07/2024 5:08 PM PROFESSOR OF MECHANICAL ENGINEERING Body Mass Index 25.1 06/07/2024 5:08 PM PROFESSOR OF MECHANICAL ENGINEERING Functional Status Functional Status Response Date of Assess ment Is person deaf or have serious hearing difficult y? Yes 02/17/2024 Is person blind or have serious difficulty seein g? Yes 02/17/2024 Does person have serious dif ficulty walking/climbing stairs? Yes 02/17/2024 Does person have difficulty dressing/bathing? Ye s 02/17/2024 Does person have difficulty doing errands alone? Yes 02/17/2024 Cognitive Status Response Date of Assessm ent Does person have difficulty concentrating/remembering/making decisions? Yes 02/17/2024 Plan of Treatment Upcoming Encounters Date Type Department Care Team (Late st Contact Info) Description 12/05/2024 1:00 PM CDT Office Visit [facility] - Neurology [address] [facility] [place] [phone] Sean Raymundo, DO [address] [place] [address] Procedures The patient is currently admitted. The information in this section might not be complete until the patient is discharged. Procedure Name Priority Date/Time Associated Diagnosis Comments PHOSPHORUS BLOOD STAT 06/08/2024 4:11 AM PROFESSOR OF MECHANICAL ENGINEERING MAGNESIUM BLOOD STAT 06/08/2024 4:11 AM PROFESSOR OF MECHANICAL ENGINEERING LIPID PROFILE STAT 06/08/2024 4:11 AM PROFESSOR OF MECHANICAL ENGINEERING CBC W/O DIFFERENTIAL STAT 06/08/2024 4:11 AM PROFESSOR OF MECHANICAL ENGINEERING BASIC METABOLIC PANEL (CALCIUM TOTAL) STAT 06/08/2024 4:11 AM PROFESSOR OF MECHANICAL ENGINEERING PT-INR [facility] STAT 06/08/2024 4:11 AM PROFESSOR OF MECHANICAL ENGINEERING URINALYSIS REFLEX MICROSCOPIC REFLEX CULTURE STAT 06/07/2024 10:24 PM PROFESSOR OF MECHANICAL ENGINEERING LIPASE BLOOD STAT 06/07/2024 8:01 PM PROFESSOR OF MECHANICAL ENGINEERING COMPREHENSIVE METABOLIC PANEL STAT 06/07/2024 8:01 PM PROFESSOR OF MECHANICAL ENGINEERING CBC W AUTO DIFFERENTIAL STAT 06/07/2024 8:01 PM PROFESSOR OF MECHANICAL ENGINEERING URINALYSIS REFLEX MICROSCOPIC REFLEX CULTURE STAT 05/15/2024 6:12 PM PROFESSOR OF MECHANICAL ENGINEERING CT CHEST ABDOMEN PELVIS W CONT STAT 05/15/2024 2:44 PM PROFESSOR OF MECHANICAL ENGINEERING Abdominal pain, generalized CBC W AUTO DIFFERENTIAL STAT 05/15/2024 12:40 PM PROFESSOR OF MECHANICAL ENGINEERING COMPREHENSIVE METABOLIC PANEL STAT 05/15/2024 12:40 PM PROFESSOR OF MECHANICAL ENGINEERING MAGNESIUM BLOOD STAT 05/15/2024 12:40 PM PROFESSOR OF MECHANICAL ENGINEERING PHOSPHORUS BLOOD STAT 05/15/2024 12:4 0 PM PROFESSOR OF MECHANICAL ENGINEERING CT CERVICAL SPINE WO CONTRAST STAT 04/30/2024 11:05 PM PROFESSOR OF MECHANICAL ENGINEERING Ground-level fall CT HEAD WO CONTRAST STAT 04/30/2024 1 1:05 PM PROFESSOR OF MECHANICAL ENGINEERING Ground-level fall XR CHEST 1VW PORTABLE STAT 04/30/2024 10:13 PM PROFESSOR OF MECHANICAL ENGINEERING Ground-level fall XR ABDOMEN KUB STAT 04/21/2024 5:41 PM PROFESSOR OF MECHANICAL ENGINEERING Attention to G-tube (HCC) HEPATITIS C AB SCREEN RFLX NAAT QUANT Routine 09/01/2022 2:05 AM CDT HIV-1 HIV-2 ANTIBODY + HIV P24 AG PANEL Routine 09/01/2022 2:05 AM CDT from Last 3 Months or Most Recently Relevant to Health Maintenance Results * PT-INR [facility] (06/08/2024 4:11 AM PROFESSOR OF MECHANICAL ENGINEERING) PT 14.1 12.1 - 14.8 Seconds 06/08/2024 4:46 AM [facility] INR 1.1 See Comment 06/08/2024 4:46 AM [facility] Comment:The suggested therap eutic range for standard coumadin (warfarin) therapy is an INR of 2.0-3.0. For high-risk patients (Mechanical Mitral Valve Prosthesis, etc.), the suggested prophylactic therapeutic range is an INR of 2.5-3.5. Blood BLOOD SPECIMEN / Unknown Venipuncture / Unknown 06/08/2024 4:11 AM PROFESSOR OF MECHANICAL ENGINEERING 06/08/2024 4:18 AM PROFESSOR OF MECHANICAL ENGINEERING Elizabeth Hernandez MD LAB - COAGULATION OR DERABLES [address] [address], [facility] [phone] * (ABNORMAL) CBC W/O DIFFERENTIAL (06/08/2024 4:11 AM PROFESSOR OF MECHANICAL ENGINEERING) WBC 7.7 4.0 - 10.7 x10E9/L 06/08/2024 4:25 AM [facility] RBC Count 4.07(L) 4.30 - 5.80 x10E12/L 06/08/2024 4:25 AM [facility] Hemoglobin 13.4 13.3 - 17.5 g/dL 06/08/2024 4:25 AM [facility] Hematocrit 38.8 38.7 - 51.1 % 06/08/2024 4:25 AM [facility] MCV 95.3 80.0 - 98.0 fL 06/08/2024 4:25 AM [facility] MCH 32.9 26.7 - 33.6 pg 06/08/2024 4:25 AM [facility] MCHC 34.5 31.7 - 36.3 g/dL 06/08/2024 4:25 AM [facility] RDW-CV 13.2 11.3 - 14.8 % 06/08/2024 4:25 AM [facility] Platelet Count 166 150 - 420 x10E9/L 06/08/2024 4:25 AM [facility] MPV 12.5(H) 7.8 - 11.4 fL 06/08/2024 4:25 AM [facility] Blood BLOOD SPECIMEN / Unknown Venipuncture / Unknown 06/08/2024 4:11 AM PROFESSOR OF MECHANICAL ENGINEERING 06/08/2024 4:18 AM PROFESSOR OF MECHANICAL ENGINEERING Lilliam Isaacs APRN-[employer] LAB - HEMATOLOGY ORDERABLES [facility] [address] [place] [phone], [facility] [phone] * (ABNORMAL) BASIC METABOLIC PANEL (CALCIUM TOTAL) (06/08/2024 4:11 AM [facility]) Pathologist [facility] BUN 14 7 - 26 mg/dL 06/08/2024 4:58 AM [facility] Creatinine 0.57(L) 0.71 - 1.16 mg/dL 06/08/2024 4:58 AM [facility] Sodium 140 136 - 145 mmol/L 06/08/2024 4:58 AM [facility] Potassium 3.9 3.5 - 4.5 mmol/L 06/08/2024 4:58 AM [facility] Chloride 108(H) 98 - 107 mmol/L 06/08/2024 4:58 AM [facility] CO2 27 22 - 29 mmol/L 06/08/2024 4:58 AM [facility] Glucose 105(H) 70 - 99 mg/dL 06/08/2024 4:58 AM [facility] Calcium 9.3 8.4 - 10.2 mg/dL 06/08/2024 4:58 AM [facility] Anion Gap 5(L) 6 - 16 06/08/2024 4:58 AM [facility] BUN/Creatinine Ratio 25(H) 7 - 23 06/08/2024 4:58 AM [facility] Osmolality Calculated 291 275 - 295 mOsm/kg 06/08/2024 4:58 AM [facility] eGFR by CKD-EPI >90 >=90 mL/min/1.7 3 m2 06/08/2024 4:58 AM [facility] Blood BLOOD SPECIMEN / Unknown Venipuncture / Unknown 06/08/2024 4:11 AM PROFESSOR OF MECHANICAL ENGINEERING 06/08/2024 4:18 AM [facility] Lilliam Isaacs APRN-[employer] LAB - CHEMISTRY ORDERABLES [facility] [address] [place] [phone], [facility] [phone] * PHOSPHORUS BLOOD (06/08/2024 4:11 AM [facility]) Only the most recent of2 resultswithin the time period is included. [facility] Phosphorus 3.0 2.8 - 5.1 mg/dL 06/08/2024 4:49 AM [facility] Blood BLOOD SPECIMEN / Unknown Venipuncture / Unknown 06/08/2024 4:11 AM PROFESSOR OF MECHANICAL ENGINEERING 06/08/2024 4:18 AM PROFESSOR OF MECHANICAL ENGINEERING [employer] LAB - CHEMISTRY ORDERABLES Performing Organization Address City/[facility]/ZIP Co de Phone Number [facility] [address] [place] [phone], [facility] [phone] * MAGNESIUM BLOOD (06/08/2024 4:11 AM PROFESSOR OF MECHANICAL ENGINEERING) Only the most recent of2 resultswithin the time period is included. Magnesium 1.9 1.6 - 2.6 mg/dL 06/08/2024 4:58 AM [facility] Blood BLOOD SPECIMEN / Unknown Venipuncture / Unknown 06/08/2024 4:11 AM PROFESSOR OF MECHANICAL ENGINEERING 06/08/2024 4:18 AM PROFESSOR OF MECHANICAL ENGINEERING [employer] LAB - CHEMISTRY ORDERABLES Performing Organization Address [facility]/ZIP Co de Phone Number [address] [phone], [facility] [phone] * (ABNORMAL) LIPID PROFILE (06/08/2024 4:11 AM PROFESSOR OF MECHANICAL ENGINEERING) [facility] Cholesterol Total 136 <200 mg/dL 06/08/2024 4:49 AM [facility] HDL 35(L) >40 mg/dL 06/08/2024 4:49 AM [facility] Comment: ATP III Classification of HDL Cholesterol: ? <40 mg/dL: ??Considered a major risk factor. ? >60 mg/dL: ??Considered a negative risk factor. ? LDL Calculated 88 <100 mg/dL 06/08/2024 4:49 AM [facility] Comment: ATP III Classification of LDL Cholesterol: ?<100 mg/dL: ??Optimal ? 100 - 129 mg/dL: ??Near Optimal/Above Optimal ? 130 - 159 mg/dL: ??Borderline High ? 160 - 189 mg/dL: ??High ?>190 mg/dL: ??Very High ? Triglycerides 65 <150 mg/dL 06/08/2024 4:49 AM [facility] Comment: ATP III Classification of Triglycerides: ?<150 mg/dL: ??Normal ? 150 - 199 mg/dL: ??Borderline High ? 200 - 400 mg/dL: ??High ?>500 mg/dL: ??Very High Blood BLOOD SPECIMEN / Unknown Venipuncture / Unknown 06/08/2024 4:11 AM PROFESSOR OF MECHANICAL ENGINEERING 06/08/2024 4:18 AM [facility] Lilliam Isaacs ANTHROPOLOGICAL LINGUIST-[employer] LAB - CHEMISTRY ORDERABLES [facility] [address] [place] [phone], [facility] [phone] * (ABNORMAL) URINALYSIS REFLEX MICROSCOPIC REFLEX CULTURE (06/07/2024 10:24 PM [facility]) Only the most recent of2 resultswithin the time period is included. Color UA Yellow Straw, Yellow 06/07/2024 11:05 PM [facility] Clarity UA Clear Clear 06/07/2024 11:05 PM [facility] Specific [place] UA >1.060(H) 1.005 - 1.030 06/07/2024 11:05 PM [facility] pH UA 7.0 5.0 - 8.0 pH 06/07/2024 11:05 PM [facility] Protein UA Negative Negative 06/07/2024 11:05 PM [facility] Glucose UA Negative Negative 06/07/2024 11:05 PM [facility] Ketone UA 1+(A) Negative 06/07/2024 11:05 PM [facility] Bilirubin UA Negative Negative 06/07/2024 11:05 PM [facility] Blood UA Negative Negative 06/07/2024 11:05 PM [facility] Nitrite UA Negative Negative 06/07/2024 11:05 PM [facility] Leukocyte Esterase Negative Negative 06/07/2024 11:05 PM [facility] Urobilinogen UA 2.0(A) Negative mg/dL 06/07/2024 11:05 PM [facility] Comment UA Microscopic not indicated. 06/07/2024 11:05 PM [facility] Urine URINE SPECIMEN OBTAINED BY CLEAN CATCH PROCEDURE / Unknown Collection / Unknown 06/07/2024 10:24 PM [facility] 06/07/2024 10:27 PM [facility] - 06/07/2024 11:05 PM [facility] Elizabeth Hernandez MD LAB - URINALYSIS ORD ERABLES [facility] [address] [place] [phone] [phone] * (ABNORMAL) CBC W AUTO DIFFERENTIAL (06/07/2024 8:01 PM PROFESSOR OF MECHANICAL ENGINEERING) Only the most recent of2 resultswithin the time period is included. WBC 9.2 4.0 - 10.7 x10E9/L 06/07/2024 8:17 PM [facility] RBC Count 4.45 4.30 - 5.80 x10E12/L 06/07/2024 8:17 PM [facility] Hemoglobin 14.4 13.3 - 17.5 g/dL 06/07/2024 8:17 PM [facility] Hematocrit 42.4 38.7 - 51.1 % 06/07/2024 8:17 PM [facility] MCV 95.3 80.0 - 98.0 fL 06/07/2024 8:17 PM [facility] MCH 32.4 26.7 - 33.6 pg 06/07/2024 8:17 PM [facility] MCHC 34.0 31.7 - 36.3 g/dL 06/07/2024 8:17 PM [facility] RDW-CV 13.5 11.3 - 14.8 % 06/07/2024 8:17 PM [facility] Platelet Count 184 150 - 420 x10E9/L 06/07/2024 8:17 PM [facility] MPV 13.0(H) 7.8 - 11.4 fL 06/07/2024 8:17 PM [facility] Neutrophil % 69.2 41.0 - 74.0 % 06/07/2024 8:17 PM [facility] Lymphocyte % 20.6 17.0 - 47.0 % 06/07/2024 8:17 PM [facility] Monocyte % 7.6 3.0 - 11.0 % 06/07/2024 8:17 PM [facility] Eosinophil % 2.2 0.0 - 7.0 % 06/07/2024 8:17 PM [facility] Basophil % 0.2 0.0 - 1.6 % 06/07/2024 8:17 PM [facility] Immature Granulocytes % 0.2 0.0 - 1.0 % 06/07/2024 8:17 PM [facility] Neutrophil Absolute 6.40 1.60 - 7.50 x10E9/L 06/07/2024 8:17 PM [facility] Lymphocyte Absolute 1.90 1.00 - 4.40 x10E9/L 06/07/2024 8:17 PM [facility] Monocyte Absolute 0.70 0.15 - 1.00 x10E9/L 06/07/2024 8:17 PM [facility] Eosinophil Absolute 0.20 0.00 - 0.60 x10E9/L 06/07/2024 8:17 PM [facility] Basophil Absolute 0.02 0.00 - 0.13 x10E9/L 06/07/2024 8:17 PM [facility] Blood BLOOD SPECIMEN / Unknown Venipuncture / Unknown 06/07/2024 8:01 PM PROFESSOR OF MECHANICAL ENGINEERING 06/07/2024 8:07 PM [facility] Elizabeth Hernandez MD LAB - HEMATOLOGY ORD ERABLES [facility] [address] [place] [address], [facility] [phone] * (ABNORMAL) COMPREHENSIVE METABOLIC PANEL (06/07/2024 8:01 PM [facility]) Only the most recent of2 resultswithin the time period is included. BUN 15 7 - 26 mg/dL 06/07/2024 8:36 PM [facility] Creatinine 0.62(L) 0.71 - 1.16 mg/dL 06/07/2024 8:36 PM [facility] Sodium 140 136 - 145 mmol/L 06/07/2024 8:36 PM [facility] Potassium 4.8(H) 3.5 - 4.5 mmol/L 06/07/2024 8:36 PM [facility] Chloride 106 98 - 107 mmol/L 06/07/2024 8:36 PM [facility] CO2 26 22 - 29 mmol/L 06/07/2024 8:36 PM [facility] Glucose 108(H) 70 - 99 mg/dL 06/07/2024 8:36 PM [facility] Calcium 9.5 8.4 - 10.2 mg/dL 06/07/2024 8:36 PM [facility] Protein Total 7.5 6.0 - 8.3 g/dL 06/07/2024 8:36 PM [facility] Albumin 3.7 3.4 - 5.0 g/dL 06/07/2024 8:36 PM [facility] Bilirubin Total 0.6 0.2 - 1.2 mg/dL 06/07/2024 8:36 PM [facility] Alkaline Phosphatase 90 40 - 150 U/L 06/07/2024 8:36 PM [facility] ALT 19 5 - 55 U/L 06/07/2024 8:36 PM [facility] AST 27 5 - 34 U/L 06/07/2024 8:36 PM [facility] Anion Gap 8 6 - 16 06/07/2024 8:36 PM [facility] BUN/Creatinine Ratio 24(H) 7 - 23 06/07/2024 8:36 PM [facility] Osmolality Calculated 291 275 - 295 mOsm/kg 06/07/2024 8:36 PM [facility] Albumin/Globulin Ratio 1.0(L) 1.1 - 2.3 06/07/2024 8:36 PM [facility] eGFR by CKD-EPI >90 >=90 mL/min/1.7 3 m2 06/07/2024 8:36 PM [facility] Blood BLOOD SPECIMEN / Unknown Venipuncture / Unknown 06/07/2024 8:01 PM PROFESSOR OF MECHANICAL ENGINEERING 06/07/2024 8:07 PM PROFESSOR OF MECHANICAL ENGINEERING Elizabeth Hernandez MD LAB - CHEMISTRY MARSHAL MEDEROS Performing Organization Address City/[facility]/ZIP Co de Phone Number [address] [address], [facility] [phone] * LIPASE BLOOD (06/07/2024 8:01 PM PROFESSOR OF MECHANICAL ENGINEERING) Lipase 14 8 - 78 U/L 06/07/2024 8:36 PM [facility] Blood BLOOD SPECIMEN / Unknown Venipuncture / Unknown 06/07/2024 8:01 PM PROFESSOR OF MECHANICAL ENGINEERING 06/07/2024 8:07 PM PROFESSOR OF MECHANICAL ENGINEERING Narrative [facility] - 06/07/2024 8:36 PM PROFESSOR OF MECHANICAL ENGINEERING Lipase results from the [employer] Al[employer] analyzer may not be comparable with other methodologies. Elizabeth Hernandez MD LAB - CHEMISTRY MARSHAL MEDEROS Performing Organization Address City/[facility]/ZIP Co de Phone Number [address] [address], [place] [phone] * CT Chest Abdomen Pelvis W Cont (05/15/2024 2:44 PM PROFESSOR OF MECHANICAL ENGINEERING) Anatomical Region Laterality Modality Chest, Abdomen, Pelvis Computed Tomography 05/15/2024 3:06 PM PROFESSOR OF MECHANICAL ENGINEERING Impressions 05/15/2024 4:01 PM PROFESSOR OF MECHANICAL ENGINEERING Impression 1. Debris noted in the right mainstem bronchus and the bilateral lower lobe peribronchial wall thickening suggestive of aspiration. 2. Centrilobular emphysematous disease of the lungs. 3. Bilateral nonobstructive nephrolithiasis. 4. Colonic diverticulosis without evidence of diverticulitis. 5. Prostatomegaly. Recommend correlation with PSA. Report dictated by Flavio Stover MD(college president). I, John Graham MD have personally reviewed and interpreted this examination/study. > Interpreting Provider: John Graham MD on 05/15/2024 4:01 PM Narrative 05/15/2024 4:01 PM PROFESSOR OF MECHANICAL ENGINEERING PROCEDURE: ??CT CHEST ABDOMEN PELVIS W CONT, DATE/TIME OF EXAM: ??05/15/2024 2:44 PM, LOCATION ??[facility] INDICATION: R10.84: Abdominal pain, generalized ADDITIONAL CLINICAL [...] CONT, DATE/TIME OF EXAM:05/15/2024 2:44 PM, LOCATION [facility] INDICATION: R10.84: Abdominal pain, generalized ADDITIONAL CLINICAL [...] with PSA. Report dictated by Flavio Stover MD(college president). I, John Graham MD have personally reviewed and interpreted this examination/study. > Interpreting Provider: John Graham MD on 05/15/2024 4:01 PM Caio Elder MD CT ORDERABLES * CT CERVICAL SPINE WO CONTRAST (04/30/2024 11:05 PM PROFESSOR OF MECHANICAL ENGINEERING) Anatomical Region Laterality Modality Spine Computed Tomogra phy 04/30/2024 11:1 6 PM PROFESSOR OF MECHANICAL ENGINEERING Impressions 04/30/2024 11:34 PM PROFESSOR OF MECHANICAL ENGINEERING IMPRESSION: 1. No acute intracranial hemorrhage or [...] 04/30/2024 11:34 PM Narrative 04/30/2024 11:34 PM PROFESSOR OF MECHANICAL ENGINEERING PROCEDURE: ??CT HEAD WO CONTRAST, CT CERVICAL [...] CT HEAD WO CONTRAST (04/30/2024 11:05 PM PROFESSOR OF MECHANICAL ENGINEERING) Anatomical Region Laterality Modality Head Computed Tomogra phy 04/30/2024 11:1 6 PM PROFESSOR OF MECHANICAL ENGINEERING Impressions 04/30/2024 11:34 PM PROFESSOR OF MECHANICAL ENGINEERING IMPRESSION: 1. No acute intracranial hemorrhage or [...] 04/30/2024 11:34 PM Narrative 04/30/2024 11:34 PM PROFESSOR OF MECHANICAL ENGINEERING PROCEDURE: ??CT HEAD WO CONTRAST, CT CERVICAL [...] XR Chest 1Vw Portable (04/30/2024 10:13 PM PROFESSOR OF MECHANICAL ENGINEERING) Anatomical Region Laterality Modality Chest Digital Radiogra phy 04/30/2024 10:1 8 PM PROFESSOR OF MECHANICAL ENGINEERING Narrative 05/01/2024 10:01 AM PROFESSOR OF MECHANICAL ENGINEERING PROCEDURE: ??XR CHEST 1VW PORTABLE, DATE/TIME OF EXAM: ??04/30/2024 10:13 PM, LOCATION ??[facility] INDICATION: W18.30XA: Ground-level fall ADDITIONAL CLINICAL INFORMATION: [...] PORTABLE, DATE/TIME OF EXAM: 04/30/2024 10:13PM, LOCATION [facility] INDICATION: W18.30XA: Ground-level fall ADDITIONAL CLINICAL INFORMATION: [...] * XR Abdomen Kub (04/21/2024 5:41 PM PROFESSOR OF MECHANICAL ENGINEERING) Anatomical Region Laterality Modality Abdomen Digital Radiogra phy 04/21/2024 5:50 PM PROFESSOR OF MECHANICAL ENGINEERING Impressions 04/21/2024 6:02 PM PROFESSOR OF MECHANICAL ENGINEERING IMPRESSION: 1.Nonobstructive bowel gas pattern. 2.G-tube in place. No extraluminal extravasation of contrast Report dictated by Virgil Clark MD I, Nj Escobar MD have personally reviewed and interpreted this examination/study. > Interpreting Provider: Nj Escobar MD on 04/21/2024 6:02 PM Narrative 04/21/2024 6:02 PM PROFESSOR OF MECHANICAL ENGINEERING PROCEDURE: ??XR ABDOMEN KUB, DATE/TIME OF EXAM: ??04/21/2024 5:41 PM, LOCATION ??[facility] INDICATION: Z43.1: Attention to G-tube (HCC) ADDITIONAL [...] DATE/TIME OF EXAM: 04/21/2024 5:41 PM, LOCATION [facility] INDICATION: Z43.1: Attention to G-tube (HCC) ADDITIONAL [...] phan Non-reac tive 09/01/2022 3:09 AM CDT [facility] Comment:Hepatitis C Antibody screen indicates no serologic [...] Abarca MD LAB - CHEMISTRY [facility] [address] [place] [address], [place] [phone] * HIV-1 HIV-2 ANTIBODY + HIV P24 AG PANEL (09/01/2022 2:05 AM CDT) HIV Antigen/Antibod y 1 & 2 Non-reacti ve Non-react phan 09/01/2022 3:09 AM CDT [facility] Comment:No Laboratory eviden ce of HIV infection. 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
--- OUTSIDE RECORDS SUMMARY | 2024-06-08 05:29 | XMS_ITS | Encounter Summary ---
Author Organization [facility] Health Address [address] [facility] [place] [address] Care Team Providers Care Occupational Health Nurse Manager Name Role Phone Elizabeth Sullivan RN Unavailable [phone] Dany Monsivais MD Primary Care Provider Encounter Details Date Type Department Care Team (Latest Contact Info) Description 02/24/2024 Travel Social History Tobacco Use Types Packs/Day Years Used Date Smoking Tobacco: Former Cigarettes 1 15 Smokeless Tobacco: Never Alcohol Use Standard Drinks/Week Comments No 0 (1 standard drink = 0.6 oz pur e alcohol) last drink 2015 AUDIT-C Answer Date Recorded Q1: How often do you have a drink containing alcohol? Never 06/19/2023 Q2: How many drinks containi ng alcohol do you have on a typical day when you are drinking? Patient does not drink Q3: How often do you have si x or more drinks on one occasion? Never 06/19/2023 Overall Financial Resource Strain (CARDIA) Answe r Date Recorded How hard is it for you to pa y for the very basics like food, housing, medical care, and heating? Not hard at all 06/19/2023 [facility] [place] of Occupat ional Health - Occupational Stress [...] place to sleep or slept in a custodial (including now)? No 06/19/2023 Sex and Gender Information Value Date Recorded Sex Assigned at Not on file Gender Identity Not on file Sexual Orientation Not on file documented as of this encounter Functional Status Functional Status Response Date of [...] person have difficulty concentrating/remembering/making decisions? 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
--- OUTSIDE RECORDS SUMMARY | 2024-06-08 05:29 | XMS_ITS | Encounter Summary ---
Author Organization [facility] Health Address [address] [facility] [place] [address] Care Team Providers Care Field Technician Name Role Phone Elizabeth Sullivan RN Unavailable [phone] Dany Monsivais MD Primary Care Provider Reason for Visit * Reason Onset Date Comments Care Management 03/28/2024 Encounter Details Date Type Department Care Team (Late st Contact Info) Description 03/28/2024 Telephone [facility] - Neurology [facility] [place] [address] Yana Rm, [employer] [address] [place] [address] Care Management Social History Tobacco Use Types Packs/Day Years [...] and heating? Not hard at all 06/19/2023 [facility] [place] of Occupat ional Health - Occupational Stress [...] place to sleep or slept in a intermediate (including now)? No 06/19/2023 Sex and Gender [...] Yes 02/17/2024 documented as of this encounter Miscellaneous Notes * Telephone Encounter - Michaela Bass RN - 03/28/2024 10:19 AM CDT Received a call from pt's sister regarding the lab results that she had faxed to our office. Statesthat she is freaking out regarding his lab results. Would like the facility to send the pt out to [facility] evaluation because he is still not waking up like he used to. Is going to speak with the facility to see if they are able to bring pt to his appt on the 03 of April. documented in this encounter Plan of Treatment Upcoming Encounters Date Type Department Care Team (Late st Contact Info) Description 12/05/2024 1:00 PM CDT Office Visit 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
--- OUTSIDE RECORDS SUMMARY | 2024-06-08 05:29 | XMS_ITS | Encounter Summary ---
Author Organization [facility] Health Address [address] [place] [address] Care Team Providers Care Fancy Sewer Name Role Phone Elizabeth Sullivan RN Unavailable Dany Monsivais MD Primary Care Provider [phone] Encounter Details Date Type Department Care Team (Latest Contact Info) Description 04/21/2024 Travel Social History Tobacco Use Types Packs/Day [...] and heating? Not hard at all 06/19/2023 [facility] [place] of Occupat ional Health - Occupational Stress [...] place to sleep or slept in a prison (including now)? 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
--- OUTSIDE RECORDS SUMMARY | 2024-06-08 05:29 | XMS_ITS | Encounter Summary ---
Author Organization [facility] Address [address] [place] [address] Care Team Providers Care Retail Wireless Associate Name Role Phone Elizabeth Sullivan RN Unavailable [phone] Joyce Luevano EDUCATION SALES CONSULTANT-ABSTRACT MANAGER Primary Care Provider [phone] Reason for Visit * Reason Comments HEMOPTYSIS Pt bibems [place] [facility] [place], rn suctioned pt's trach and got small amount of blood, pt arrives oriented x 2, speaks in 1-2 word phrases, denies c/o, as of note ems replaced trach yesterday for nh Encounter Details Date Type Department Care Team (Late st Contact Info) Description 09/14/2023 5:26 AM CDT - 09/15/2023 12:12 AM CDT Emergency [facility] EMERGENCY DEPART[facility] [place] [id number] Walt Linder MD [facility] [place] [address] Caio Elder MD [address] [place] [address] [place] [id number] Hemoptysis; Deep vein thrombosis (DVT) of other vein of left upper extremity, unspecified chronicity (HCC); Tracheostomy tube present (HCC) Discharge Disposition: Reheater Helper Acute Care Social History Tobacco Use Types Packs/Day Years [...] and heating? Not hard at all 06/19/2023 [place] [employer] - Occupational Stress [...] place to sleep or slept in a [facility] (including now)? No 06/19/2023 Sex and Gender Information Value Date Recorded Sex Assigned at Not on file Gender Identity Not on file Sexual Orientation Not on file documented as of this encounter Last Filed Vital Signs Vital Sign Reading Time Taken Comments Blood Pressure 172/99 09/14/2023 11:00 PM CDT Pulse 90 09/14/2023 11:00 PM CDT Temperature 36.8 ??C (98.2 ??F) 09/14/2023 1:59 PM CD T Respiratory Rate 23 09/14/2023 11:00 PM CDT Oxygen Saturation 99% 09/14/2023 11:00 PM CDT Inhaled Oxygen Concentration 35% 09/14/2023 1 1:24 PM CDT Weight 81.6 kg (180 lb) 09/14/2023 5:29 AM CDT Height 175.3 cm (5' 9 ) 09/14/2023 5:29 AM CDT Body Mass Index 26.58 09/14/2023 5:29 AM CDT documented in this encounter Functional Status Functional Status Response Date of Assess ment Is person deaf or have serious hearing difficult y? Yes 06/19/2023 Is person blind or have serious difficulty seein g? Yes 06/19/2023 Does person have serious dif ficulty walking/climbing stairs? Yes 06/19/2023 Does person have difficulty dressing/bathing? Ye s 06/19/2023 Does person have difficulty doing errands alone? Yes 06/19/2023 Cognitive Status Response Date of Assessm ent Does person have difficulty concentrating/remembering/making decisions? Yes 06/19/2023 documented as of this encounter Discharge Instructions * Discharge Instructions* Gretchen Siu - 09/14/2023 2:24 PM CDT Your tracheostomy was evaluated by ENT and it showed nothing concerning. Your clot in your subclavian is gone, and you can stop your eliquis. Please follow-up with your doctor as needed for further concerns. documented in this encounter Medications at Time of Discharge Medication Sig Dispensed Refills Start Date End Date acetaminophen (Tylenol) 325 MG tablet 2 (two) tablets by Enteral Tube route every 6 hours as needed Maximum allowable Acetaminophen amount = 4 Grams (4000 mg) / 24 hours. 01/12/2023 albuterol-ipratropium (Duo-Neb) 0.5-2.5 (3) MG/3ML nebulizer solution Inhale 3 mL by mouth every 6 hours as needed for Shortness of Breath or Wheezing apixaban (Eliquis) 5 MG tablet Take 1 (one) tablet by mouth 2 times daily Per G-tube 09/10/2023 artificial tears ophthalmic ointment Instill into both eyes every 8 hours 10/22/2022 aspirin (Aspirin) 81 MG chew tablet 1 (one) tablet by Enteral Tube route once daily atorvastatin (Lipitor) 40 MG tablet 1 (one) tablet by Enteral Tube route at bedtime 30 tablet 02/28/2023 bisacodyl (Dulcolax) 10 MG suppository Insert 1 (one) suppository into the rectum once daily as needed for Constipation Calcium Carbonate Antacid (calcium carbonate, 500 mg elemental Ca/5 mL,) 1250 MG/5ML suspension 5 mL by Enteral Tube route every 6 hours as needed 02/28/2023 famotidine (Pepcid) 20 MG tablet 1 (one) tablet by Enteral Tube route 2 times daily 60 tablet 02/28/2023 folic acid (Folvite) 1 MG tablet 1 (one) tablet by Enteral Tube route once daily 04/01/2022 guaiFENesin (Robitussin) 100 MG/5ML solution 15 mL by Enteral Tube route Every 6 Hours (03,09,15,21) 200 mL 02/28/2023 metoprolol tartrate IR (Lopressor) 25 MG tablet 1 (one) tablet by Enteral Tube route 2 times daily 12/15/2022 pantoprazole (Protonix) 40 MG packet Take 1 (one) packet by mouth once daily 0 01/12/2023 polyethylene glycol 3350 (Miralax) 17 g packet 17 (seventeen) g by Enteral Tube route 2 times daily 15 packet 02/28/2023 senna (Senokot) 8.6 MG tablet 1 (one) tablet by Enteral Tube route once daily 30 tablet 03/01/2023 thiamine (Vitamin B-1) 100 MG tablet 1 (one) tablet by Enteral Tube route once daily 04/01/2022 cloBAZam (Onfi) 10 MG tablet Take 1 (one) tablet by mouth 2 times daily 60 tablet 5 09/12/2023 05/15/2024 lacosamide (Vimpat) 200 MG tablet 1 (one) tablet by Per G Tube route 2 times daily for 90 days 06/28/2023 05/15/2024 levETIRAcetam (Keppra) 100 MG/ML oral solution 20 mL by Enteral Tube route 2 times daily for 90 days 06/28/2023 05/15/2024 valproic acid (Depakene) 250 MG/5ML solution 20 mL by Per G Tube route every 6 hours for 90 days 06/28/2023 02/20/2024 documented as of this encounter Progress Notes * Melissa Aflord LCSW - 09/14/2023 4:55 PM CDT Facility Transfer Note Level of Care: long filler cigar roller machine care Facility Name: [facility] RN Call Report to:[phone] Transportation [facility] [phone] Certificate of Medical Necessity rationale: completed Date/time of transfer: 09/14/2023 4:57 PM Comments: ems eta is 1930 Name/Phone number: Melissa Alford LCSW documented in this encounter Consult Notes * Juan Jose Hernandez MD - 09/14/2023 7:34 AM CDTAssociated Order(s): IP CONSULT TO OTOLARYNGOLOGY Images from the original note were not included. Otolaryngology-Head and Neck Surgery Consultation Note PATIENT INFORMATION Bi Tabor 63 year old male Today's Date: 09/14/2023 CC: Chief Complaint Patient presents with ??? HEMOPTYSIS Pt bibems from [facility] in [place], [place], rn suctioned pt's trach and got small amount of blood, pt arrives oriented x 2, speaks in 1-2 word phrases, denies c/o, as of note ems replaced trach yesterday for nh Reason for consult: Trach bleeding Consulting Service: ED HPI/ROS/Allergies HPI: Bi Tabor is a 63 year old male with complex past medical history including significant neurologic injury related to prior stroke, head injury, Alzheimer's who previously underwent a Zenkers diverticulectomy in an effort to reduce his chronic aspiration and recurrent missions for aspirationpneumonia, as well as a tracheostomy for respiratory failure seen in consultation for bleeding fromtracheostomy tube. Per chart review and report, patient was accidentally decannulated yesterday andthis was replaced by EMS. Since then there has been bloody secretions noted when suctioning. Patient last seen by Dr. Hurtado on 08/29/23. Noted to have a 6.0 cuffed Shiley at this visit. Noted tohave a 4.[address] currently. Per ED, patient was started on Eliquis about 1 week ago for a subclavian DVT. History limited by baseline neurologic status. Allergies: Allergies Allergen Reactions ??? Clonazepam Psychiatric hallucinations Focused Review of Systems (negative unless bold): Unable to obtain due to baseline neurologic status PMH/PSH/SH/FH/Meds PAST MEDICAL HISTORY Past Medical History: Diagnosis Date ??? Cerebrovascular disease ??? HTN (hypertension) ??? Seizure (HCC) PAST SURGICAL HISTORY Past Surgical History: Procedure Laterality Date ??? ENDOSCOPY, UPPER N/A 03/25/2022 N/A; ESOPHAGOGASTRODUODENOSCOPY (EGD) DIAGNOSTIC with PEG Placement ??? ENT SURGERY N/A 07/15/2022 N/A; TRANSCERVICAL ZENKERS DIVERTICULECTOMY, OPEN TRACHEOSTOMY ??? 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 SINUS SURGERY N/A 11/26/2022 N/A; Bilateral Nasal Endoscopy, Right polypectomy, Right Maxillary Antrostomy, Rihjy Anterior Ethmoidectomy SOCIAL HISTORY: Social History Tobacco Use ??? Smoking status: Former Packs/day: 1.00 Years: 15.00 Additional pack years: 0.00 Total pack years: 15.00 Types: Cigarettes ??? Smokeless tobacco: Never Vaping Use ??? Vaping Use: Never used Substance Use Topics ??? Alcohol use: No Comment: last drink 2015 ??? Drug use: No Comment: occasional FAMILY HISTORY Non-contributory. MEDICATIONS No current facility-administered medications on file prior to encounter. Current Outpatient Medications on File Prior to Encounter Medication Sig Dispense Refill ??? acetaminophen (Tylenol) 325 MG tablet 2 (two) tablets by Enteral Tube route every 6 hours as needed Maximum allowable Acetaminophen amount = 4 Grams (4000 mg) / 24 hours. ??? albuterol-ipratropium (Duo-Neb) 0.5-2.5 (3) MG/3ML nebulizer solution Inhale 3 mL by mouth every 6 hours as needed for Shortness of Breath or Wheezing ??? apixaban (Eliquis) 5 MG tablet Take 1 (one) tablet by mouth 2 times daily Per G-tube ??? artificial tears ophthalmic ointment Instill into both eyes every 8 hours ??? aspirin (Aspirin) 81 MG chew tablet 1 (one) tablet by Enteral Tube route once daily ??? atorvastatin (Lipitor) 40 MG tablet 1 (one) tablet by Enteral Tube route at bedtime 30 tablet 0 ??? bisacodyl (Dulcolax) 10 MG suppository Insert 1 (one) suppository into the rectum once daily asneeded for Constipation ??? Calcium Carbonate Antacid (calcium carbonate, 500 mg elemental Ca/5 mL,) 1250 MG/5ML suspension5 mL by Enteral Tube route every 6 hours as needed ??? cloBAZam (Onfi) 10 MG tablet Take 1 (one) tablet by mouth 2 times daily 60 tablet 5 ??? famotidine (Pepcid) 20 MG tablet 1 (one) tablet by Enteral Tube route 2 times daily 60 tablet 0 ??? folic acid (Folvite) 1 MG tablet 1 (one) tablet by Enteral Tube route once daily ??? guaiFENesin (Robitussin) 100 MG/5ML solution 15 mL by Enteral Tube route Every 6 Hours (03,09,15,21) 200 mL 0 ??? lacosamide (Vimpat) 200 MG tablet 1 (one) tablet by Per G Tube route 2 times daily for 90 days ??? levETIRAcetam (Keppra) 100 MG/ML oral solution 20 mL by Enteral Tube route 2 times daily for 90days ??? metoprolol tartrate IR (Lopressor) 25 MG tablet 1 (one) tablet by Enteral Tube route 2 times daily ??? pantoprazole (Protonix) 40 MG packet Take 1 (one) packet by mouth once daily 0 ??? polyethylene glycol 3350 (Miralax) 17 g packet 17 (seventeen) g by Enteral Tube route 2 times daily 15 packet 0 ??? senna (Senokot) 8.6 MG tablet 1 (one) tablet by Enteral Tube route once daily 30 tablet 0 ??? thiamine (Vitamin B-1) 100 MG tablet 1 (one) tablet by Enteral Tube route once daily ??? valproic acid (Depakene) 250 MG/5ML solution 20 mL by Per G Tube route every 6 hours for 90 days Physical Exam Vitals: BP 146/87 Pulse 89 Temp 98.8 ??F (37.1 ??C) (Axillary) Resp 20 Ht 1.753 m (5' 9 ) Wt 81.6 kg (180 lb) SpO2 94% BMI 26.58 kg/m?? General: Awake. NAD Neuro: Moving all 4. CV: RRR. Respiratory: Non-labored respiratory effort on RA. Extremities: WWP Ears, Nose, Mouth, and Throat Exam External exam of the ears and nose: Grossly normal Otoscopy: Deferred Hearing assessment: Grossly normal Nasal mucosa, septum, and turbinates: Moist mucosa Lips, teeth, and gums: No masses or lesions. Poor dentition. Oropharynx: Posterior oropharynx clear of blood. Examination of neck: Soft, flat, supple, no appreciable lymphadenopathy.4.[address] with some bloody secretions noted coming from trach tube. Examination of thyroid: Not enlarged, no tenderness. Neurological and Cranial Nerves: II-XII grossly intact, Responses with one word answers. Head and face inspection: NC/AT. Procedure Procedure Note Endoscopy Type: Tracheoscopy via the tracheostomy Endoscope: Flexible 4mm Scope Anesthesia: None Procedure Details: The scope was advanced through the tracheostomy into the trachea and looked distally down to the brionna. Findings: - Tracheostomy tube in appropriate position - Fresh blood tracking down the tracheal wall down to the right main stem where there is a collection of dark blood and mucus - Repeat exam was completed after trach change without any active bleeding noted Condition: Stable. The patient tolerated this procedure with minimal to no discomfort. Complications: None ENT Trach Change Note Date: 09/14/23 Previous trach: 4-0 cuffed Shiley Changed to: 6-0 cuffed Shiley Anesthesia: None Procedure details: Patient was laid in supine position with neck extended. Current trach was suctioned. New trach was checked for defects and none were noted. Trach ties were removed and the current trach was removed. Stoma was evaluated without any sources of bleeding noted. The new trach was placed using the obturator and passed easily. Placement was confirmed by cough with secretions, easy passing of suction catheter, and/or comfortable ventilation. Tracheoscopy was performed confirming appropriate position without any notable active bleeding. The new trach was secured using ties. There were no complications. The patient tolerated the procedure well. Labs/Imaging/Micro/Pathology Recent Labs: CBC Recent Labs Component Name 09/14/23 0618 09/09/23 0655 09/08/23 1641 WBC 6.9 5.1 5.6 HGB 13.3 10.5* 12.3* HCT 39.1 30.2* 36.4* PLTCOUNT 159 178 197 BMP Recent Labs Component Name 09/09/23 0430 09/08/23 0515 09/07/23 0457 POTASSIUM 3.1* 3.5 3.8 CO2 28 BUN <5* 7 12 CREATININE 0.46* 0.47* 0.56* GLUCOSE 88 88 79 CALCIUM 8.8 9.4 8.7 PHOS 2.7* 2.4* 2.6* LFTs Recent Labs Component Name 09/06/23 1716 06/28/23 0143 06/27/23 0156 AST 21 27 21 ALT 15 26 21 ALKPHOS 83 108 103 Coags Recent Labs Component Name 09/14/23 0618 09/09/23 0655 09/09/23 0430 09/08/23 2334 09/08/23 1641 09/06/23 1716 PT - - 17.6* - 15.2* 16.4* INR - - 1.5 - 1.2 1.4 PTT 31.6 >200.0* >200.0* - 36.2 - - = values in this interval not displayed. ABG Recent Labs Component Name 06/09/23201306/09/23 1902 06/09/23 1703 01/07/23 1224 01/03/23 1132 12/31/22 2217 02/25/21 1212 04/11/15 0622 PH 7.41 7.27* 7.28* - 7.49* 7.44 - 7.38 PO2 82 - - - 108* 151* - 134* PCO2 40 - - - 34* 36 - 36 HCO3 - - - - - - - 20.9* BE 0.7 - - - 2.7* 0.5 - -3.6* - = values in this interval not displayed. Recent Imaging/Studies: No new relevant imaging or vascular studies. Recent Micro/Pathology: No new relevant cultures or biopsies. ASSESSMENT & PLAN Bi Tabor is a 63 year old male with complex past medical history including significant neurologic injury related to prior stroke, head injury, Alzheimer's who previously underwent a Zenkers diverticulectomy in an effort to reduce his chronic aspiration and recurrent missions for aspiration pneumonia, as well as a tracheostomy for respiratory failure seen in consultation for bleeding from tracheostomy tube after possible traumatic trach change 1 day ago. Of note, patient was recently startedon Eliquis per ED for DVT. Scope exam revealed fresh blood tracking down the tracheal wall with pooling of blood in the right mainstem bronchi but no active bleeding from the stoma or proximal trachea was appreciated. Trach was changed to 6.0 cuffed Shiley. ?? Recommend monitoring for repeat bleeding in the ED until at least this afternoon. Pending re-evaluation in PM can consider discharging home back to facility. ?? Consider holding Eliquis if feasible ?? Continued humidified trach collar ?? Please page ENT with questions/concerns. Final plan subject to change until staffed with attending physician. Juan Jose Hernandez MD Otolaryngology Resident PGY-2 09/14/2023 7:57 AM Associated attestation - Alden Hurtado MD - 09/14/2023 2:34 PM CDT Attending Physician Supervisory Note I personally interviewed and examined the patient and agree with the Resident above. In addition I note: Mild tracheal bleeding in the setting of self decannulation in replacement. No ongoing bleeding. Agree with holding eloquis for 48 hours if medically safe. Otherwise ok to return to facility. Alden Hurtado MD documented in this encounter ED Notes * Sigifredo Oliveira RN - 09/14/2023 7:18 PM CDT Report given to Sophie at [facility] [phone] * Caio Elder MD - 09/14/2023 2:40 PM CDT [facility] C[facility] NOTE Patient signed out to me by Dr. Brewer at 2:00 PM. Briefly, Bi Tabor is a 63 year old male is being evaluated for blood in trach tube after recenttrach change. Patient has chronic trach. Patient was recently discharged on Eliquis from [facility] due to evidence of subclavian vein DVT, however Doppler performed today showed no evidence of DVT. At this time the patient's condition is Stable. Thus far, studies reveal no DVT. Plan is ENT attending needs to see patient and give formal recs. ED Course: 3:44 PM: Spoke with ENT again who states they will see the patient. 3:55 PM: ENT has cleared patient for discharge with instructions to stop Eliquis and follow-up withPCP. 4:05 PM: Resident has reviewed his diagnostic findings and he has had an opportunity to ask them any questions he has about care, diagnosis and discharge plan. Patient is comfortable with the discharge plan. He will follow up as directed and will return to the ER if his condition worsens or he develops other urgent concerns. Clinical Impression: 1. Hemoptysis 2. Deep vein thrombosis (DVT) of other vein of left upper extremity, unspecified chronicity (HCC) Disposition: Discharge By signing my name below, I, Gretchen Siu, attest that this documentation has been prepared underthe direction and in the presence of Dr. Elder. Signed: Laisha Rutledge. I, Dr. Elder, personally performed the services described in this documentation. All medical record entries made by the scribe were at my direction and in my presence. I have reviewed the chart andagree that the record reflects my personal performance and is accurate and complete. * Riky Brewer MD - 09/14/2023 10:08 AM CDT EM ASSUME CARE NOTE Patient signed out at change of shift by Dr. Linder. Bi Tabor is a 63 year old male is being evaluated for blood from tracheostomy, recently changedout. At this time the patient's condition is Fair. Current results: Vitals: 09/14/23 0529 09/14/23 0609 09/14/23 0816 BP: 146/87 Pulse: 89 86 Resp: 20 14 Temp: 98.8 ??F (37.1 ??C) SpO2: 94% 97% Weight: 81.6 kg (180 lb) Height: 1.753 m (5' 9 ) Labs Reviewed CBC W AUTO DIFFERENTIAL - Abnormal; Notable for the following components: Result Value RBC Count 4.10 (*) MPV 12.9 (*) Neutrophil % 29.8 (*) Lymphocyte % 52.5 (*) Eosinophil % 8.1 (*) All other components within normal limits PTT SLH - Normal COMPREHENSIVE METABOLIC PANEL TYPE + SCREEN PANEL VAS LEFT VENOUS DUPLEX UE (Results Pending) Pending/Plan: ENT evaluation recommendations. Note on review of medical record that he was recently discharged from here and continued on Eliquis at that time which had been prescribed outpatient for a subclavian DVT diagnosed elsewhere in early July. We will do a Doppler to see if that persists as well. Progress: ENT would like to obs for re-bleeding. Venous doppler LUE is neg so could be d/c'ed w/o eliquis. Waiting on any final recs per ENT. Clinical Impression: 1. Hemoptysis 2. Deep vein thrombosis (DVT) of other vein of left upper extremity, unspecified chronicity (HCC) Disposition: Pending; signed over at shift change I personally performed the services described in this documentation. All medical record entries made by the scribe were at my direction and in my presence. I have reviewed the chart and agree that the record reflects my personal performance and is accurate and complete. * Walt Linder MD - 09/14/2023 5:30 AM CDT ED Resident Attestation I have personally seen, examined and been fully involved in the management of this patient with theresident. I confirm history, exam, assessment and plan Discussed with the resident. In addition I note: History: Bi Tabor is a 63 year old male with ahistory of htn, stroke, and seizures who presentsto the ED for concern of blood in trach when suctioning. EMS notes that they saw him yesterday to replace his trach, they put the trach in and that a small amount of blood was suctioned. Further history is unobtainable secondary to minimally verbal. History is obtained from patient and is located in my HPI section. I also externally reviewed previous records that I had access to within [email or web address] and noted relevant statements in my HPI. Past Medical History: Diagnosis Date ??? Cerebrovascular disease ??? HTN (hypertension) ??? Seizure (HCC) Social History Socioeconomic History ??? Marital status: Single Spouse name: Not on file ??? Number of children: Not on file ??? Years of education: Not on file ??? Highest education level: Not on file Occupational History ??? Not on file Tobacco Use ??? Smoking status: Former Packs/day: 1.00 Years: 15.00 Additional pack years: 0.00 Total pack years: 15.00 Types: Cigarettes ??? Smokeless tobacco: Never Vaping Use ??? Vaping Use: Never used Substance and Sexual Activity ??? Alcohol use: No Comment: last drink 2015 ??? Drug use: No Comment: occasional ??? Sexual activity: Not Currently Other Topics Concern ??? Not on file Social History Narrative ??? Not on file Social Determinants of Health Financial Resource Strain: Low Risk (06/19/2023) Overall Financial Resource Strain (CARDIA) ??? Difficulty of Paying Living Expenses: Not hard at all Food Insecurity: No Food Insecurity (06/19/2023) Hunger Vital Sign ??? Worried About Running Out of Food in the Last Year: Never true ??? Ran Out of Food in the Last Year: Never true Transportation Needs: No Transportation Needs (06/19/2023) PRAPARE - Transportation ??? Lack of Transportation (Medical): No ??? Lack of Transportation (Non-Medical): No Stress: No Stress Concern Present (06/19/2023) [place] [employer] - Occupational Stress Questionnaire ??? Feeling of Stress : Not at all Housing Stability: Low Risk (06/19/2023) Housing Stability Vital Sign ??? Unable to Pay for Housing in the Last Year: No ??? Number of Places Lived in the Last Year: 1 ??? Unstable Housing in the Last Year: No Past Surgical History: Procedure Laterality Date ??? ENDOSCOPY, UPPER N/A 03/25/2022 N/A; ESOPHAGOGASTRODUODENOSCOPY (EGD) DIAGNOSTIC with PEG Placement ??? ENT SURGERY N/A 07/15/2022 N/A; TRANSCERVICAL ZENKERS DIVERTICULECTOMY, OPEN TRACHEOSTOMY ??? 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 SINUS SURGERY N/A 11/26/2022 N/A; Bilateral Nasal Endoscopy, Right polypectomy, Right Maxillary Antrostomy, Rihjy Anterior Ethmoidectomy Review of Systems: Review of Systems Unable to perform ROS: Patient nonverbal (minimally verbal) Exam: Vitals: 09/14/23 0529 BP: 146/87 Pulse: 89 Resp: 20 SpO2: 94% Weight: 81.6 kg (180 lb) Height: 1.753 m (5' 9 ) The patient's Oxygen Saturation Monitor was interpreted by me. The reading was 94%. The patient wason trach collar at the time of the reading. This is interpreted as normal Physical Exam Vitals and nursing note reviewed. Constitutional: General: He is not in acute distress. Appearance: Normal appearance. He is well-developed. He is not ill-appearing, toxic-appearing or diaphoretic. HENT: Head: Normocephalic and atraumatic. Right Ear: External ear normal. Left Ear: External ear normal. Nose: Nose normal. Mouth/Throat: Pharynx: No oropharyngeal exudate. Eyes: General: No scleral icterus. Right eye: No discharge. Left eye: No discharge. Conjunctiva/sclera: Conjunctivae normal. Pupils: Pupils are equal, round, and reactive to light. Neck: Trachea: No tracheal deviation. Comments: Tracheostomy in place Cardiovascular: Rate and Rhythm: Normal rate and regular rhythm. Pulses: Normal pulses. Heart sounds: Normal heart sounds. No murmur heard. No friction rub. No gallop. Pulmonary: Effort: Pulmonary effort is normal. No respiratory distress. Breath sounds: Normal breath sounds. No stridor. No wheezing or rales. Chest: Chest wall: No tenderness. Abdominal: General: Bowel sounds are normal. There is no distension. Palpations: Abdomen is soft. There is no mass. Tenderness: There is no abdominal tenderness. There is no guarding or rebound. Musculoskeletal: General: No swelling, tenderness, deformity or signs of injury. Normal range of motion. Cervical back: Normal range of motion and neck supple. No rigidity or tenderness. Skin: General: Skin is warm. Coloration: Skin is not jaundiced or pale. Neurological: General: No focal deficit present. Mental Status: He is alert. Cranial Nerves: No cranial nerve deficit. Sensory: No sensory deficit. Motor: No weakness or abnormal muscle tone. Coordination: Coordination normal. Comments: Minimally verbal Psychiatric: Behavior: Behavior normal. Thought Content: Thought content normal. Judgment: Judgment normal. Labs Reviewed CBC W AUTO DIFFERENTIAL COMPREHENSIVE METABOLIC PANEL PTT [facility] TYPE + SCREEN PANEL No orders to display Medications - No data to display Assessment/Plan: 63 year old man with bleeding from trach site - local trauma vs tracheoinnominate fistula vs other 1. Work Up - See lab and radiology orders 2. Therapy - See orders 3. 5:30 AM - Patient evaluated - patient here with small amount of bleeding from trach site, is unable to give history due to being largely nonverbal. Exam is benign, and I see no blood at the tracheostomy site at this time. Will contact [facility] to attempt to clarify reason for patient's visit, quantity of bleeding that has been seen. Consider ENT consult if large amount of bleeding was witnessed at [facility], also check basic labs, dispo pending results, likely home. 6:00 AM - Work up pending. Signed out to Dr Brewer. Clinical Impressions as of 09/14/23 0619 Hemoptysis Procedure done at this time No Ultrasound done at this time No Clinical Impression: 1. Hemoptysis Disposition: Pending Please see resident note for further details. * Trista Layne RN - 09/14/2023 5:26 AM CDT Bed: AC30 Expected date: Expected time: Means of arrival: Comments: [facility] Trached PT documented in this encounter Plan of Treatment Upcoming Encounters Date Type Department Care Team (Late st Contact Info) Description 12/05/2024 1:00 PM CDT Office Visit [facility] - Neurology [address] [facility], [place] [address] Sean Raymundo, DO [address] [place] [phone] documented as of this encounter Procedures Procedure Name Priority Date/Time Associated Diagnosis Comments GLUCOSE - POINT OF CARE Routine 09/14/2023 4:01 PM CDT COMPREHENSIVE METABOLIC PANEL STAT 09/14/2023 1:45 PM CDT VAS LEFT VENOUS DUPLEX UE STAT 09/14/2023 11:25 AM CDT Hemoptysis Deep vein thrombosis (DVT) of other vein of left upper extremity, unspecified chronicity (HCC) PTT H STAT 09/14/2023 6:18 AM CDT TYPE + SCREEN PANEL STAT 09/14/2023 6 :18 AM CDT CBC W AUTO DIFFERENTIAL STAT 09/14/2023 6:18 AM CDT documented in this encounter Results * GLUCOSE - POINT OF CARE (09/14/2023 4:01 PM CDT) Glucose WB/POC 92 70 - 115 mg/dL 09/14/2023 4:01 PM CDT [facility] Specimen Type Cap Fingerstick 2023 4:01 PM CDT [facility] Blood BLOOD SPECIMEN / Unknown 09/14/2023 4:01 PM CDT 09/14/2023 4:01 PM CDT Caio Elder MD LAB - POINT OF CARE ORDERABLES [facility] [address] [place] [address], [facility] [phone] * (ABNORMAL) COMPREHENSIVE METABOLIC PANEL (09/14/2023 1:45 PM [facility]) BUN 5(L) 7 - 26 mg/dL 09/14/2023 2:21 PM [facility] Creatinine 0.40(L) 0.71 - 1.16 mg/dL 09/14/2023 2:21 PM [facility] Sodium 143 136 - 145 mmol/L 09/14/2023 2:21 PM [facility] Potassium 3.3(L) 3.5 - 4.5 mmol/L 09/14/2023 2:21 PM [facility] Chloride 116(H) 98 - 107 mmol/L 09/14/2023 2:21 PM [facility] CO2 22 22 - 29 mmol/L 09/14/2023 2:21 PM [facility] Glucose 65(L) 70 - 115 mg/dL 09/14/2023 2:21 PM [facility] Calcium 7.1(L) 8.4 - 10.2 mg/dL 09/14/2023 2:21 PM [facility] Protein Total 4.7(L) 6.0 - 8.3 g/dL 09/14/2023 2:21 PM [facility] Albumin 2.0(L) 3.4 - 5.0 g/dL 09/14/2023 2:21 PM [facility] Bilirubin Total 0.2 0.2 - 1.2 mg/dL 09/14/2023 2:21 PM [facility] Alkaline Phosphatase 56 40 - 150 U/L 09/14/2023 2:21 PM [facility] ALT 7 5 - 55 U/L 09/14/2023 2:21 PM [facility] AST 13 5 - 34 U/L 09/14/2023 2:21 PM [facility] Anion Gap 5(L) 6 - 16 09/14/2023 2:21 PM CDT [facility] BUN/Creatinine Ratio 13 7 - 23 09/14/2023 2:21 PM CDT [facility] Osmolality Calculated 291 275 - 295 mOsm/kg 09/14/2023 2:21 PM CDT [facility] Albumin/Globulin Ratio 0.7(L) 1.1 - 2.3 09/14/2023 2:21 PM CDT [facility] eGFR by CKD-EPI >90 >=90 mL/min/1.7 3 m2 09/14/2023 2:21 PM CDT [facility] Blood BLOOD SPECIMEN / Unknown Venipuncture / Unknown 09/14/2023 1:45 PM CDT 09/14/2023 1:54 PM CDT Walt Linder MD LAB - CHEMISTRY MARSHAL MEDEROS [facility] [address] [place] [id number], [facility] [phone] * VAS LEFT VENOUS DUPLEX UE (09/14/2023 11:25 AM CDT) Anatomical Region Laterality Modality Upper Extremity Intravascular Ul trasound 09/14/2023 10:2 3 AM CDT Narrative Procedure Note Kaylee Wills MD - 09/14/2023 Riky Brewer MD VASCULAR LAB ORDERAB LES * PTT [facility] (09/14/2023 6:18 AM CDT) APTT 31.6 23.0 - 38.4 Seconds 09/14/2023 6:48 AM CDT [facility] Comment:Suggested therapeuti c range for full dose I.V. unfractionated heparin therapy for venous thromboembolism is 71 to 109 seconds. Blood BLOOD SPECIMEN / Unknown Venipuncture / Unknown 09/14/2023 6:18 AM CDT 09/14/2023 6:24 AM CDT Walt Linder MD LAB - COAGULATION OR DERABLES [facility] [address] [place] [address], [facility] [phone] * TYPE + SCREEN PANEL (09/14/2023 6:18 AM CDT) [facility] Antibody Screen NEG 7:09 AM CDT [facility] ABO Rh O POS 09/14/2023 7:09 AM CDT [facility] Blood Bank BLOOD SPECIMEN / Unknown Venipuncture / Unknown 09/14/2023 6:18 AM CDT 09/14/2023 6:28 AM CDT Walt Linder MD LAB - BLOOD BANK ORD ERABLES Performing Organization Address [facility]/ZIP Co de Phone Number [facility] [address] [place] [address], [facility] [phone] * (ABNORMAL) CBC W AUTO DIFFERENTIAL (09/14/2023 6:18 AM CDT) [facility] WBC 6.9 4.0 - 10.7 x10E9/L 09/14/2023 6:35 AM [facility] RBC Count 4.10(L) 4.30 - 5.80 x10E12/L 09/14/2023 6:35 AM [facility] Hemoglobin 13.3 13.3 - 17.5 g/dL 09/14/2023 6:35 AM [facility] Hematocrit 39.1 38.7 - 51.1 % 09/14/2023 6:35 AM [facility] MCV 95.4 80.0 - 98.0 fL 09/14/2023 6:35 AM T [facility] MCH 32.4 26.7 - 33.6 pg 09/14/2023 6:35 AM [facility] MCHC 34.0 31.7 - 36.3 g/dL 09/14/2023 6:35 AM [facility] RDW-CV 13.7 11.3 - 14.8 % 09/14/2023 6:35 AM [facility] Platelet Count 159 150 - 420 x10E9/L 09/14/2023 6:35 AM [facility] MPV 12.9(H) 7.8 - 11.4 fL 09/14/2023 6:35 AM [facility] Neutrophil % 29.8(L) 41.0 - 74.0 % 09/14/2023 6:35 AM [facility] Lymphocyte % 52.5(H) 17.0 - 47.0 % 09/14/2023 6:35 AM [facility] Monocyte % 9.0 3.0 - 11.0 % 09/14/2023 6:35 AM [facility] Eosinophil % 8.1(H) 0.0 - 7.0 % 09/14/2023 6:35 AM [facility] Basophil % 0.3 0.0 - 1.6 % 09/14/2023 6:35 AM [facility] Immature Granulocytes % 0.3 0.0 - 1.0 % 09/14/2023 6:35 AM [facility] Neutrophil Absolute 2.07 1.60 - 7.50 x10E9/L 09/14/2023 6:35 AM [facility] Lymphocyte Absolute 3.63 1.00 - 4.40 x10E9/L 09/14/2023 6:35 AM [facility] Monocyte Absolute 0.62 0.15 - 1.00 x10E9/L 09/14/2023 6:35 AM [facility] Eosinophil Absolute 0.56 0.00 - 0.60 x10E9/L 09/14/2023 6:35 AM [facility] Basophil Absolute 0.02 0.00 - 0.13 x10E9/L 09/14/2023 6:35 AM [facility] Blood BLOOD SPECIMEN / Unknown Venipuncture / Unknown 09/14/2023 6:18 AM CDT 09/14/2023 6:26 AM T Walt Linder MD LAB - HEMATOLOGY ORD ERABLES Performing Organization Address City/State/[facility] Co de Phone Number [address] [address], [facility] [phone] documented in this encounter Visit Diagnoses Diagnosis Hemoptysis Deep vein thrombosis (DVT) of other vein of left upper extremity, unspecified chronicity (HCC) Tracheostomy tube present (HCC) documented in this encounter Additional Health Concerns Infection Onset Date Last Indicated Resolved Time 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
--- OUTSIDE RECORDS SUMMARY | 2024-06-08 05:29 | XMS_ITS | Encounter Summary ---
Author Organization [facility] Health Address [address] [facility] [place] [address] Care Team Providers Care Senior Business Consultant Name Role Phone Elizabeth Sullivan RN Unavailable [phone] Dany Monsivais MD Primary Care Provider Encounter Details Date Type Department Care Team (Latest Contact Info) Description 05/15/2024 Travel Social History Tobacco Use Types Packs/Day [...] and heating? 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
--- OUTSIDE RECORDS SUMMARY | 2024-06-08 05:29 | XMS_ITS | Encounter Summary ---
Author Organization [facility] Address [address] [place] [address] Care Team Providers Care Filling Hand Name Role Phone Elizabeth Sullivan RN Unavailable [phone] Dany Monsivais MD Primary Care Provider [phone] Reason for Visit * Reason Comments Fall Pt BIB EMS for fall from bed, hit forehead, no LOC, no neck pain, Eliquis noted on medication list from facility. Pt reports sitting on edge of low bed and slid off on to floor approximately 2 feet. Hematoma to left eyebrow. Hx CVA w/ left sided deficits, TBI, trach pt, g tube. GCS 14 A&Ox3 Encounter Details Date Type Department Care Team (Late st Contact Info) Description 04/30/2024 9:21 PM LOAN OPERATIONS SPECIALIST - 05/01/2024 2:23 AM [facility] Emergency [facility] EMERGENCY DEPARTMENT [facility] [place] [phone] [place] [address] [place] [address] Caio Elder MD [facility] [facility] [place] [phone] Ground-level fall; Concussion with unknown loss of consciousness status, initial encounter; NPH (normal pressure hydrocephalus) ([facility]) Discharge Disposition: [facility] Social History Tobacco Use Types [...] and heating? Not hard at all 06/19/2023 [place] [facility] - Occupational Stress [...] place to sleep or slept in a residential (including now)? No 06/19/2023 Sex and Gender Information Value Date Recorded Sex Assigned at Not on file Gender Identity Not on file Sexual Orientation Not on file documented as of this encounter Last Filed Vital Signs Vital Sign Reading Time Taken Comments Blood Pressure 146/92 05/01/2024 2:22 AM LOAN OPERATIONS SPECIALIST Pulse 98 05/01/2024 2:22 AM LOAN OPERATIONS SPECIALIST Temperature 36.7 ??C (98 ??F) 04/30/2024 9:27 PM LOAN OPERATIONS SPECIALIST Respiratory Rate 26 05/01/2024 2:22 AM LOAN OPERATIONS SPECIALIST Oxygen Saturation 98% 05/01/2024 2:22 AM LOAN OPERATIONS SPECIALIST Inhaled Oxygen Concentration 30% 04/30/2024 1 1:16 PM LOAN OPERATIONS SPECIALIST Weight 77.1 kg (170 lb) 04/30/2024 9:27 PM LOAN OPERATIONS SPECIALIST Height 175.3 cm (5' 9 ) 04/30/2024 9:27 PM LOAN OPERATIONS SPECIALIST Body Mass Index 25.1 04/30/2024 9:27 PM LOAN OPERATIONS SPECIALIST documented in this encounter Functional Status Functional [...] Yes 02/17/2024 documented as of this encounter Discharge Instructions * Discharge Instructions* Blair Bell DO - 05/01/2024 12:38 AM LOAN OPERATIONS SPECIALIST You have been seen in the emergency department today for fall. Please follow up with your primary care provider to ensure resolution of the symptoms you were experiencing today. Please take medications as prescribed. Please return to the emergency department or seek medical attention if you start to experience fever, chills, chest pain, headache, shortness of breath, abdominal pain, and leg swelling. OPERATIONS SPECIALIST documented in this encounter Medications at Time [...] 05/15/2024 valproic acid (Depakene) 250 MG/5ML solution 25 mL by Per G Tube route every 6 hours 02/20/2024 05/15/2024 documented as of this encounter ED Notes * Pat Ortega RN - 05/01/2024 2:14 AM CST Patient discharged to [facility] in Only via [facility]. OPERATIONS SPECIALIST * Pat Ortega RN - 05/01/2024 1:36 AM CST Report called to [facility]. Social work assisting with EMS transport back to facility. OPERATIONS SPECIALIST * Pat Ortega RN - 05/01/2024 1:20 AM CST This RN attempted to call report to [facility] x [phone] with no answer at [phone] OPERATIONS SPECIALIST * Caio Elder MD - 04/30/2024 10:39 PM CST ASSUMED CARE NOTE Patient signed out to me by Dr. Medeiros at 10:00 PM. Briefly, Bi Tabor is a 64 year old male with past Hx of CVA w/ left sided deficits, TBI, trach pt, G tube, is being evaluated for a fall in which he he hit his left side of his head. Pt states hehad fallen off from his bed. Pt denies LOC. At this time the patient's condition is Stable. Pending studies include CT head, CT T-Spine, and X-Ray Chest Plan is discharge ED course: 01:04 AM: Pt is alert and is able to say her name and knows her surrounding. Pt was intracranial informed she does not have a hematoma. Pt is stable for discharge and can head back to [facility]. - resident has reviewed his diagnostic findings and he has had an opportunity to ask the any questions he has about care, diagnosis and discharge plan. Patient is comfortable with the discharge plan.He will follow up as directed and will return to the ER if his condition worsens or he develops other urgent concerns. Clinical Impression: 1. Ground-level fall 2. Concussion with unknown loss of consciousness status, initial encounter 3. NPH (normal pressure hydrocephalus) (HCC) Disposition: Discharge By signing my name below, I, Wendy Amor, attest that this documentation has been prepared under the direction and in the presence of Dr. Elder. Signed: Laisha Henderson. I, Dr. Elder, personally performed the services described in this documentation. All medical record entries made by the scribe were at my direction and in my presence. I have reviewed the chart andagree that the record reflects my personal performance and is accurate and complete. OPERATIONS SPECIALIST * Elmo Medeiros MD - 04/30/2024 10:01 PM CST ED Attending Note Patient seen as a team with the Resident, Dr. Deshpande, who has also contributed to this note. History of Present Illness: Bi Tabor is a 64 year old male presenting to the ED [facility] with a past medical history of Hx CVA w/ left sided deficits, TBI, trach pt, g tube.after fall from bed hit head, and landed on left side of his head. Patient denies loss of consciousness, neck pain. Patient states he is on Eliquis noted on medication list from facility. Patient reports sitting on edge of low bed and slid off on to floor approximately 2 feet. Patient presents with hematoma to left eyebrow. Patient denies chest pain,shortness of breath, headache, loss of consciousness, diarrhea, constipation. Patient denies any thoughts of hurting others or self harm. Patient denies any other concerns or complaints at this time. 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; LEFT BKA POSS AKA SINUS SURGERY N/A 11/26/2022 N/A; Bilateral Nasal Endoscopy, Right polypectomy, Right Maxillary Antrostomy, Rihjy Anterior Ethmoidectomy Social History Socioeconomic History Marital status: Single Spouse name: Not on file Number of children: Not on file Years of education: Not on file Highest education level: Not on file Occupational History Not on file Tobacco Use Smoking status: Former Current packs/day: 1.00 Average packs/day: 1 pack/day for 15.0 years (15.0 ttl pk-yrs) Types: Cigarettes Smokeless tobacco: Never Vaping Use Vaping status: Never Used Substance and Sexual Activity Alcohol use: No Comment: last drink 2015 Drug use: No Comment: occasional Sexual activity: Not Currently Other Topics Concern Not on file Social History Narrative Not on file Social Determinants of Health Financial Resource Strain: Low Risk (06/19/2023) Overall Financial Resource Strain (CARDIA) Difficulty of Paying Living Expenses: Not hard at all Food Insecurity: No Food Insecurity (06/19/2023) Hunger Vital Sign Worried About Running Out of Food in the Last Year: Never true Ran Out of Food in the Last Year: Never true Transportation Needs: No Transportation Needs (06/19/2023) PRAPARE - Transportation Lack of Transportation (Medical): No Lack of Transportation (Non-Medical): No Stress: No Stress Concern Present (06/19/2023) [place] [employer] [facility] - Occupational Stress Questionnaire Feeling of Stress : Not at all Housing Stability: Low Risk (06/19/2023) Housing Stability Vital Sign Unable to Pay for Housing in the Last Year: No Number of Places Lived in the Last Year: 1 Unstable Housing in the Last Year: No Review of Systems: Review of Systems Constitutional: Negative for chills, diaphoresis, fever, malaise/fatigue and weight loss. HENT: Negative for congestion, ear discharge, ear pain, hearing loss, nosebleeds, sinus pain, sore throat and tinnitus. Eyes: Negative for blurred vision, double vision, photophobia, pain, discharge and redness. Respiratory: Negative for cough, hemoptysis, sputum production, shortness of breath, wheezing and stridor. Cardiovascular: Negative for chest pain, palpitations, orthopnea, claudication, leg swelling and PND. Gastrointestinal: Negative for abdominal pain, blood in stool, constipation, diarrhea, heartburn, nausea and vomiting. Genitourinary: Negative for dysuria, flank pain, frequency, hematuria and urgency. Musculoskeletal: Positive for falls. Neurological: Positive for weakness. Negative for dizziness, tingling, tremors, sensory change, speech change, focal weakness, seizures, loss of consciousness and headaches. Psychiatric/Behavioral: Negative for depression, hallucinations, substance abuse and suicidal ideas. The patient is not nervous/anxious and does not have insomnia. Patient Vitals for the past 6 hrs: Temp Pulse Resp BP 04/30/24 2127 98 ??F (36.7 ??C) 93 22 142/95 Exam: Physical Exam Constitutional: Appearance: Normal appearance. Comments: Left AKA. HENT: Head: Normocephalic. Comments: Hematoma to above left eye brow. Mouth/Throat: Comments: Tracheostomy and G tube in place. Cardiovascular: Rate and Rhythm: Normal rate and regular rhythm. Pulmonary: Effort: Pulmonary effort is normal. Breath sounds: Normal breath sounds. Musculoskeletal: Comments: Base line Left sided weakness. Neurological: General: No focal deficit present. Mental Status: He is alert and oriented to person, place, and time. Comments: Base line left sided weakness. Psychiatric: Mood and Affect: Mood normal. Behavior: Behavior normal. Thought Content: Thought content normal. Judgment: Judgment normal. Data Results: Labs Reviewed - No data to display CT HEAD WO CONTRAST (Results Pending) CT CERVICAL SPINE WO CONTRAST (Results Pending) XR Chest 1Vw Portable (Results Pending) Monitoring: The patient's Oxygen Saturation Monitor was interpreted by me. The reading was 98%. The patient wason RA at the time of the reading. This is interpreted as normal. Medical Decision Makin. A 64 year old male presented to ED after fall. DDX: Intra cranial Hemmorhage vs cervical fx vs stroke vs siezure vs others. Plan: CT head, Ct spine , imaging, reassessment. MDM: History is obtained from patient and is located in my HPI section. I also externally reviewed previous records that I had access to within [facility] and noted relevant statements in my HPI. Code status patient/POA: Full Relevant PE findings: Hematoma to left eye brow. Labs reviewed: none Imaging reviewed: CT of the head and CT of the cervical spine does not demonstrate acute intracranial process ED COURSE: 9:59 PM - WILSON to Dr Elder. Acute problems: Fall Exacerbations of chronic problems: Trach dependent, G tube dependent. Systemic issues: CVA, HTN, Consultations in the ED: None Medication changes: none Consult No Procedure done at this time No Ultrasound done at this time No Critical Care performed in ED No Orders Placed This Encounter CT HEAD WO CONTRAST CT CERVICAL SPINE WO CONTRAST XR Chest 1Vw Portable Medications - No data to display Summary of Stay: Patient is a 64-year-old male presents emergency department today with left- sided deficits trach and G-tube after a fall from his bed. Patient was seen by myself and the resident physician. The patient states that he is on Eliquis and able to answer majority of her questions. To workup for possiblehematoma versus subarachnoid hemorrhage versus fracture we did obtain labs and a head CT see the cervical spine CT and x-ray of the chest. Currently the patient's imaging is pending therefore the patient was signed out to the [facility] ER physician Clinical Impression: 1. Ground-level fall 2. Concussion with unknown loss of consciousness status, initial encounter 3. NPH (normal pressure hydrocephalus) ([facility]) Disposition: WILSON to Dr. Elder. By signing my name below, I, Yun Navarrete, attest that this documentation has been prepared under the direction and in the presence of Dr. Medeiros. Signed: Laisha Ni. I, Dr. Medeiros, personally performed the services described in this documentation. All medical record entries made by the scribzion were at my direction and in my presence. I have reviewed the chart and agree that the record reflects my personal performance and is accurate and complete. Electronically signed: Dr. Medeiros Date: 05/01/24 Time: 9:44 PM OPERATIONS SPECIALIST * Pat Ortega RN - 04/30/2024 9:27 PM CST Pt BIB EMS for fall from bed, hit forehead, no LOC, no neck pain, Eliquis noted on medication list from facility. Pt reports sitting on edge of low bed and slid off on to floor approximately 2 feet. Hematoma to left eyebrow. Hx CVA w/ left sided deficits, TBI, trach pt, g tube. GCS 14 A&Ox3 OPERATIONS SPECIALIST * Pao Spencer RN - 04/30/2024 9:21 PM CST Bed: AC23 Expected date: Expected time: Means of arrival: Comments: EMS 1341 fell out of bed, hx CVA, trach pt OPERATIONS SPECIALIST documented in this encounter Plan of Treatment Upcoming Encounters Date Type Department Care Team (Late st Contact Info) Description 12/05/2024 1:00 PM CDT Office Visit [facility] - Neurology [address] [place] [address], Critical [place] [phone] Sean Raymundo, DO [address] [place] [address] [place] [phone] Scheduled Orders Name Type Priority Associated Diagnoses Orde r Schedule OXYGEN WITH TITRATION PROTOCOL Respiratory Care Routine ONCE for 1 Occurrences starting 04/30/2024 until 04/30/2024 documented as of this encounter Procedures Procedure Name Priority Date/Time Associated Diagnosis Comments CT CERVICAL SPINE WO CONTRAST STAT 04/30/2024 11:05 PM LOAN OPERATIONS SPECIALIST Ground-level fall CT HEAD WO CONTRAST STAT 04/30/2024 1 1:05 PM LOAN OPERATIONS SPECIALIST Ground-level fall XR CHEST 1VW PORTABLE STAT 04/30/2024 10:13 PM LOAN OPERATIONS SPECIALIST Ground-level fall documented in this encounter Results * CT CERVICAL SPINE WO CONTRAST (04/30/2024 11:05 PM LOAN OPERATIONS SPECIALIST) Anatomical Region Laterality Modality Spine Computed Tomogra phy 04/30/2024 11:1 6 PM LOAN OPERATIONS SPECIALIST Impressions 04/30/2024 11:34 PM LOAN OPERATIONS SPECIALIST IMPRESSION: 1. No acute intracranial hemorrhage [...] 04/30/2024 11:34 PM Narrative 04/30/2024 11:34 PM LOAN OPERATIONS SPECIALIST PROCEDURE: ??CT HEAD WO CONTRAST, CT [...] CT HEAD WO CONTRAST (04/30/2024 11:05 PM LOAN OPERATIONS SPECIALIST) Anatomical Region Laterality Modality Head Computed Tomogra phy 04/30/2024 11:1 6 PM LOAN OPERATIONS SPECIALIST Impressions 04/30/2024 11:34 PM LOAN OPERATIONS SPECIALIST IMPRESSION: 1. No acute intracranial hemorrhage [...] 04/30/2024 11:34 PM Narrative 04/30/2024 11:34 PM LOAN OPERATIONS SPECIALIST PROCEDURE: ??CT HEAD WO CONTRAST, CT [...] XR Chest 1Vw Portable (04/30/2024 10:13 PM LOAN OPERATIONS SPECIALIST) Anatomical Region Laterality Modality Chest Digital Radiogra phy 04/30/2024 10:1 8 PM LOAN OPERATIONS SPECIALIST Narrative 05/01/2024 10:01 AM LOAN OPERATIONS SPECIALIST PROCEDURE: ??XR CHEST 1VW PORTABLE, DATE/TIME OF EXAM: ??04/30/2024 10:13 PM, LOCATION ??[facility] INDICATION: W18.30XA: Ground-level fall ADDITIONAL CLINICAL [...] PORTABLE, DATE/TIME OF EXAM: 04/30/2024 10:13PM, LOCATION [facility] INDICATION: W18.30XA: Ground-level fall ADDITIONAL CLINICAL [...] Elmo Medeiros MD DIAGNOSTIC ADAN GING ORDERABLES documented in this encounter Visit Diagnoses Diagnosis Ground-level fall Concussion with unknown loss of consciousness status, initial encounter NPH (normal pressure hydrocephalus) (HCC) Idiopathic normal pressure hydrocephalus (INPH) documented in this encounter Additional Health Concerns Infection Onset Date Last Indicated Resolved Time 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
--- OUTSIDE RECORDS SUMMARY | 2024-06-08 05:29 | XMS_ITS | Encounter Summary ---
Author Organization [facility] Health Address [address] [place] [place] [address] Care Team Providers Care Correctional Substance Abuse Counselor Name Role Phone Elizabeth Sullivan RN Unavailable [phone] Joyce Luevano APRN-AGRICULTURAL AIRCRAFT PILOT Primary Care Provider [phone] Encounter Details Date Type Department Care Team (Late st Contact Info) Description 08/26/2023 12:45 PM CDT Office Visit [facility] - ENT [address] [place] [phone] Alden Hurtado MD [address] [place] [id number] Tracheostomy dependence (HCC) (Primary Dx); Oropharyngeal dysphagia Social History Tobacco Use Types Packs/Day Years [...] and heating? Not hard at all 06/19/2023 [facility] [place] of Occupat ional Health - Occupational Stress [...] place to sleep or slept in a snf (including now)? No 06/19/2023 Sex and Gender Information Value Date Recorded Sex Assigned at Not on file Gender Identity Not on file Sexual Orientation Not on file documented as of this encounter Last Filed Vital Signs Vital Sign Reading Time Taken Comments Blood Pressure 134/90 08/26/2023 12:44 PM CDT Pulse 70 08/26/2023 12:44 PM CDT Temperature - - Respiratory Rate - - Oxygen Saturation - - Inhaled Oxygen Concentration - - Weight - - Height - - Body Mass Index - - documented in this encounter Functional Status Functional [...] Yes 06/19/2023 documented as of this encounter Progress Notes * Alden Hurtado MD - 08/29/2023 7:46 AM CDT No chief complaint on file. HPI: Bi Tabor is a 63 year old male with a complex past medical history including significant neurologic injury related to prior stroke, head injury, Alzheimer's who previously underwent a Zenkers diverticulectomy in an effort to reduce his chronic aspiration and recurrent missions for aspiration pneumonia, as well as a tracheostomy for respiratory failure around that time. He continues to reside at a skilled nurse facility and presents today from their by ambulance with medical records but withhis sister present. She is interested in working towards advancing his diet and decannulation. Wereable to get both the nurse at the facility and the speech-language follow pathologist who previously evaluated him on the phone provide additional detail. They report he was last evaluated by speech 1 year ago and has had millimole toleration of the PMV valve and has been recommended for n.p.o. status due to aspiration and multiple swallow evaluations. He had an MBS done here with our ADMINISTRATIVE FELLOW which shows aspiration of all consistencies and minimal ability to follow commands or recommendations. He is also been on low-level oxygen support the majority of the time and requires very frequent suctioning of copious thick mucus. However, he has had a significant decrease in the number of his admissions for aspiration pneumonia over the past year. Past Medical History: Diagnosis Date ??? Cerebrovascular disease ??? HTN (hypertension) ??? Seizure (HCC) Past Surgical History: History of BKA to the [facility] Current Outpatient Medications Medication Sig ??? acetaminophen (Tylenol) 325 MG tablet 2 (two) tablets by Enteral Tube route every 6 hours as needed Maximum allowable Acetaminophen amount = 4 Grams (4000 mg) / 24 hours. ??? artificial tears ophthalmic ointment Instill into both eyes every 8 hours ??? aspirin (Aspirin) 81 MG chew tablet 1 (one) tablet by Enteral Tube route once daily ??? atorvastatin (Lipitor) 40 MG tablet 1 (one) tablet by Enteral Tube route at bedtime ??? Calcium Carbonate Antacid (calcium carbonate, 500 mg elemental Ca/5 mL,) 1250 MG/5ML suspension5 mL by Enteral Tube route every 6 hours as needed ??? cloBAZam (Onfi) 20 MG tablet 1 (one) tablet by Enteral Tube route 2 times daily for 90 days ??? famotidine (Pepcid) 20 MG tablet 1 (one) tablet by Enteral Tube route 2 times daily ??? folic acid (Folvite) 1 MG tablet 1 (one) tablet by Enteral Tube route once daily ??? guaiFENesin (Robitussin) 100 MG/5ML solution 15 mL by Enteral Tube route Every 6 Hours (,,15,) ??? lacosamide (Vimpat) 200 MG tablet 1 [...] 1 (one) packet by mouth once daily ??? polyethylene glycol 3350 (Miralax) 17 g packet 17 (seventeen) g by Enteral Tube route 2 times daily ??? senna (Senokot) 8.6 MG tablet 1 (one) tablet by Enteral Tube route once daily ??? thiamine (Vitamin B-1) 100 MG tablet 1 (one) tablet by Enteral Tube route once daily ??? valproic acid (Depakene) 250 MG/5ML solution 20 mL by Per G Tube route every 6 hours for 90 days No current facility-administered medications for this visit. Allergies: Allergies Allergen Reactions ??? Clonazepam Psychiatric hallucinations Family History: Negative for easy bruising/bleeding, problems with anesthesia, or head/neck cancer. Past Social History: Mr. Tabor is accompanied by his sister today. Tobacco: Smokin pack-years,no longer smokind. Last drink was 2015, no current alcohol use. Exam: Vitals: 08/26/23 1244 BP: 134/90 Pulse: 70 General: Awake and alert in no apparent distress breathing comfortably Face: No scars, lesions or masses visible or palpable Ears: Right Pinna normal, EAC normal with some cerumen Left Pinna normal, EAC normal with some cerumen Nose: External nose without lesions. Patent bilaterally, mucosa intact, septum without significant deviation Oral Cavity/Oropharynx: Lips without lesions. Tongue is mobile, palate elevates symmetrically. The buccal mucosa, palate, gingiva were examined and no lesions seen and no masses palpable Neck: Neck incision well-healed. [address] with cuff deflated on supplemental humidified oxygen. No palpable lymphadenopathy bilaterally. Thyroid is low in the neck without palpable abnormalities. The salivary glands are without palpable masses. Voice: Strong, no stridor present Neurologic: Cranial nerves III-XII grossly intact Procedure Note Anesthesia: none Endoscopy Type: Flexible endoscopy y Procedure Details: Informed consent was obtained. The patient was placed in the sitting position. Scope was passed through the tracheostomy tube down to the level of brionna Findings: -Tracheostomy completion in the mid trachea. There is copious thick secretions throughout the trachea and mainstem bronchi bilaterally Disposition: The patient tolerated procedure well. Complications: None Assessment/Plan: 1. Dysphagia- has had good healing with no appreciable recurrence of Zenker's diverticulum however has significant neurologic related dysphagia which is unlikely to be significantly improved despite any treatment options although he continues to follow with his neurologist as well. Ultimately I believe his best option for this is to continue with G-tube usage. 2. Tracheostomy dependence - tracheostomy is in good position and appears to be functioning primarily for pulmonary toilet due to his copious secretions and ongoing aspiration of his secretions. Thisseems to be effective given the decrease in his number of aspiration pneumonias. The tracheostomy is in good position today. We reviewed with his sister the indications for working towards tracheostomy decannulation, but given the benefit he had from the trach for pulmonary toilet purposes I believe he is likely to need this indefinitely. If there is any improvement in his neurologic condition and associated dysphagia with reduction in his chronic aspiration then we could consider decannulationin the future. Follow-up: As needed documented in this encounter Procedure Notes * Alden Hurtado MD - 08/29/2023 7:52 AM CDTAssociated Order(s): PROC ENDOSCOPY-LARYNX Procedure(s): UT SCOPE THRU TRACHEOSTOMY Pre-Procedure Diagnose(s): Oropharyngeal dysphagia; Tracheostomy dependence (HCC) Procedure Note Anesthesia: none Endoscopy Type: Flexible endoscopy y Procedure Details: Informed consent was obtained. The patient was placed in the sitting position. Scope was passed through the tracheostomy tube down to the level of brionna Findings: -Tracheostomy completion in the mid trachea. There is copious thick secretions throughout the trachea and mainstem bronchi bilaterally Disposition: The patient tolerated procedure well. Complications: None documented in this encounter Plan of Treatment Upcoming Encounters Date Type Department Care Team (Late st Contact Info) Description 12/05/2024 1:00 PM CDT Office Visit [facility] - Neurology [address] [place] [address], [facility] [place] [phone] Sean Raymundo DO [address] [place] [phone] documented as of this encounter Procedures Procedure Name Priority Date/Time Associated Diagnosis Comments UT SCOPE THRU TRACHEOSTOMY Routine 08/29/2023 7:52 AM CDT Oropharyngeal dysphagia Tracheostomy dependence (HCC) documented in this encounter Results * UT SCOPE THRU TRACHEOSTOMY (08/29/2023 7:52 AM CDT) [...] Alden Hurtado MD PROCEDURE/MINOR SURG ICAL ORDERABLES documented in this encounter Visit Diagnoses Diagnosis Tracheostomy dependence (HCC)- Primary Tracheostomy status Oropharyngeal dysphagia Dysphagia, oropharyngeal phase documented in this encounter Additional Health Concerns Infection Onset Date Last Indicated Resolved Time 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
--- OUTSIDE RECORDS SUMMARY | 2024-06-08 05:29 | XMS_ITS | Encounter Summary ---
Author Organization [facility] Health Address [address] [place] [address] Care Team Providers Care Cook Dinner Name Role Phone Elizabeth Sullivan RN Unavailable [phone] Joyce Luevano LOT PORTER-SUPERVISOR SCOURING PADS Primary Care Provider [phone] Reason for Visit * Reason Onset Date Comments Update 09/12/2023 Encounter Details Date Type Department Care Team (Late st Contact Info) Description 09/12/2023 Telephone [facility] - Neurology [facility] [place] [address] Yana Rm APRN-SUPERVISOR SCOURING PADS [address] [place] [address] Update Social History Tobacco Use Types Packs/Day Years [...] heating? Not hard at all 06/19/2023 [facility] [place] of Occupat ional Health - Occupational Stress [...] place to sleep or slept in a [place] health care facility (including now)? No 06/19/2023 Sex and Gender [...] Yes 06/19/2023 documented as of this encounter Miscellaneous Notes * Telephone Encounter - Maria Luz Ma RN - 09/12/2023 12:33 PM CDT Called facility at [phone]. Spoke with the nurse and let her know we sent a script to decreaseclobazam to 10mg BID. She states she will look out for the new script and update the patients chart. 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
--- OUTSIDE RECORDS SUMMARY | 2024-06-08 05:29 | XMS_ITS | Encounter Summary ---
Author Organization [facility] Health Address [address] [facility] [place] [address] Care Team Providers Care Nut Grinder Name Role Phone Elizabeth Sullivan RN Unavailable [phone] Joyce Luevano APRN-SHOW HOST Primary Care Provider [phone] Reason for Referral * Radiology Services (Routine) - Closed Specialty Diagnoses / Procedures Referred By Anabella dan Referred To Contact ENT-Otolaryngology Diagnoses Oropharyngeal dysphagia Problems with swallowing and mastication Procedures FL SWALLOWING FUNCTION STUDY Alden Hurtado MD [address] [place] [address] [facility] [address] [place] [phone] Referral ID Status Reason Start Date Expiration Date Visits Re quested Visits Authorized [id number] Closed 08/04/2023 08/03/2024 1 1 Reason for Visit * Radiology Services (Routine) - Closed Specialty Diagnoses / Procedures Referred By Anabella dan Referred To Contact ENT-Otolaryngology Diagnoses Oropharyngeal dysphagia Problems with swallowing and mastication Procedures FL SWALLOWING FUNCTION STUDY Alden Hurtado MD [address] [place] [address] [facility] [address] [place] [address] Referral ID Status Reason Start Date Expiration Date Visits Re quested Visits Authorized [id number] Closed 08/04/2023 08/03/2024 1 1 Encounter Details Date Type Department Care Team (Latest Contact Info) Description 08/26/2023 11:00 AM CDT - 08/26/2023 11:59 PM CDT Hospital Encounter [facility] DIAGNOSTIC RAD [address] [place] [phone] Alden Hurtado MD [address] [place] [address] Discharge Disposition: Home or Self Care Social History Tobacco Use Types Packs/Day [...] hard at all 06/19/2023 [facility] [place] of Occupat ional Health - Occupational Stress [...] Yes 06/19/2023 documented as of this encounter Medications at Time of Discharge Medication Sig Dispensed Refills Start Date End Date acetaminophen (Tylenol) 325 MG tablet 2 (two) tablets by Enteral Tube route every 6 hours as needed Maximum allowable Acetaminophen amount = 4 Grams (4000 mg) / 24 hours. 01/12/2023 artificial tears ophthalmic ointment Instill into both eyes every 8 hours 10/22/2022 aspirin (Aspirin) 81 MG chew tablet 1 (one) tablet by Enteral Tube route once daily atorvastatin (Lipitor) 40 MG tablet 1 (one) tablet by Enteral Tube route at bedtime 30 tablet 02/28/2023 Calcium Carbonate Antacid (calcium carbonate, 500 mg [...] by Enteral Tube route Every 6 Hours (,,,) 200 mL 02/28/2023 metoprolol tartrate IR (Lopressor) [...] Tube route once daily 04/01/2022 cloBAZam (Onfi) 20 MG tablet 1 (one) tablet by Enteral Tube route 2 times daily for 90 days 06/28/2023 09/12/19 lacosamide (Vimpat) 200 MG tablet 1 (one) [...] 06/28/2023 02/20/2024 documented as of this encounter Plan of Treatment Upcoming Encounters Date Type Department Care Team (Late st Contact Info) Description 12/05/2024 1:00 PM CDT Office Visit [facility] - [facility] [place] [phone] Sean Raymundo, DO [address] [place] [address] documented as of this encounter Procedures Procedure Name Priority Date/Time Associated Diagnosis Comments FL SWALLOWING FUNCTION STUDY Routine 08/26/2023 12:30 PM CDT Oropharyngeal dysphagia Problems with swallowing and mastication documented in this encounter Results * FL SWALLOWING FUNCTION STUDY (08/26/2023 12:30 PM CDT) Anatomical Region Laterality Modality Chest Radiographic Cynthia ging 08/26/2023 1:51 PM CDT Impressions 08/26/2023 8:24 PM CDT IMPRESSION: Fluoroscopy was provided for a procedure performed by Speech Therapy. Please see the Speech Therapy report for interpretation. > Dictated by Sierra Lyman M.D. - Diagnostic Medical Billing Specialist. IJohn MD have personally reviewed and interpreted this examination/study. > Interpreting Provider: John Stubbs MD on 08/26/2023 8:24 PM Narrative 08/26/2023 8:24 PM CDT PROCEDURE: ??FL SWALLOWING FUNCTION STUDY, DATE/TIME OF EXAM: ??08/26/2023 12:34 PM, LOCATION ??[facility] INDICATION: R13.12: Oropharyngeal dysphagia R13.10: Problems with swallowing and mastication ADDITIONAL CLINICAL INFORMATION: Ordering Provider Reason For Exam: Technologist Note: Additional: COMPARISON: None. FLUOROSCOPY TIME: ??3.87 minutes; Number of images: ??[id number] Procedure Note John Stubbs MD - 08/26/2023 PROCEDURE: FL SWALLOWING FUNCTION STUDY, DATE/TIME OF EXAM: 08/26/2023 12:34 PM, LOCATION [facility] INDICATION: R13.12: Oropharyngeal dysphagia R13.10: Problems with swallowing and mastication ADDITIONAL CLINICAL INFORMATION: Ordering Provider Reason For Exam: Technologist Note: Additional: COMPARISON: None. FLUOROSCOPY TIME: 3.87 minutes; Number of images: [id number] IMPRESSION: Fluoroscopy was provided for a procedure performed by Speech Therapy. Please see the Speech Therapy report for interpretation. > Dictated by Sierra Lyman M.D. - Diagnostic Medical Billing Specialist. I, John Stubbs MD have personally reviewed and interpreted this examination/study. > Interpreting Provider: John Stubbs MD on 08/26/2023 8:24 PM Alden Hurtado MD FLUOROSCOPY ORDERABL ES documented in this encounter Visit Diagnoses Diagnosis Oropharyngeal dysphagia Dysphagia, oropharyngeal phase Problems with swallowing and mastication documented in this encounter Administered Medications Inactive Administered Medications - up to 3 most recent administrations Medication Order MAR Action Action Date Dose Rate Site barium (Varibar Thin) 40 % liquid SUSR 20 mL 20 mL, Oral, ONCE, 1 dose, On Tue08/26/23 at 1300 $ Given - Contrast 08/26/2023 12:31 PM CDT 20 mL barium (Varibar) 40 % paste PSTE Oral, ONCE, 1 dose, On Tue08/26/23 at 1300 $ Given - Contrast 08/26/2023 12:31 PM CDT 2 mL barium (Varibar) 40 % suspension Oral, ONCE, 1 dose, On Tue08/26/23 at 1300 $ Given - Contrast 08/26/2023 12:32 PM CDT 20 mL barium (Varibar) 40 % suspension Oral, ONCE, 1 dose, On Tue08/26/23 at 1300, Barium Honey/[place] $ Given - Contrast 08/26/2023 12:32 PM CDT 5 mL documented in this encounter Additional Health Concerns Infection Onset Date Last Indicated Resolved Time 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
--- OUTSIDE RECORDS SUMMARY | 2024-06-08 05:29 | XMS_ITS | Encounter Summary ---
Author Organization [facility] Health Address [address] [place] [address] Care Team Providers Care [employer] Name Role Phone Elizabeth Sullivan RN Unavailable [phone] Dany Monsivais MD Primary Care Provider Reason for Visit * Reason Onset Date Comments Care Management 02/08/2024 Encounter Details Date Type Department Care Team (Late st Contact Info) Description 02/08/2024 Telephone [facility] - Neurology [address] [facility], [place] [phone] Juan Jose Gilbert, AUDIT SPEC-SPOT WELDER BODY ASSEMBLY [address] [place] [address] Care Management Social History Tobacco Use Types [...] and heating? Not hard at all 06/19/2023 [facility] [place] of Occupat ional Health - Occupational Stress [...] place to sleep or slept in a care home (including now)? No 06/19/2023 Sex and Gender [...] Telephone Encounter - Michaela Bass RN - 02/08/2024 3:00 PM CDT Called and spoke with electromechanical engineer at [facility] in [place] and she states that the patient has been taken to the hospital but cannot confirm which one. * Telephone Encounter - Michaela Bass RN - 02/08/2024 1:53 PM CDT Spoke with Mary the UPHOLSTERY INSTRUCTOR at [facility] and she states that he was taken to [facility] last night and they did nothing but send him back to the facility. She is writing new orders for his ASMs. Instructed her to have the patient sent to [facility] for treatment. She states that each time they call EMS they want to take him to the nearest facility. Would like a call back from UPHOLSTERY INSTRUCTOR Gilbert at [phone]. * Telephone Encounter - Michaela Bass RN - 02/08/2024 1:36 PM CDT Received a vm from patient's sister asking us to call the UPHOLSTERY INSTRUCTOR Mary at [facility]. Sister asked for a call back at [phone]. M for the sister. Spoke with the sister and told her to have the facility send the pt to the ER here at [facility]. She willcall the UPHOLSTERY INSTRUCTOR and let her know that pt is to go to the ER. Gave her this RN's direct number if they need to confirm these plans. documented in this encounter Plan of Treatment Upcoming Encounters Date Type Department Care Team (Late st Contact Info) Description 12/05/2024 1:00 PM CDT Office Visit 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
--- OUTSIDE RECORDS SUMMARY | 2024-06-08 05:29 | XMS_ITS | Encounter Summary ---
Author Organization [facility] Health Address [address] [facility] [place] [address] Care Team Providers Care Meteorologist Liaison Name Role Phone Elizabeth Sullivan RN Unavailable [phone] Dany Monsivais MD Primary Care Provider [phone] Encounter Details Date Type Department Care Team (Latest Contact Info) Description 05/03/2024 Travel Social History Tobacco Use Types Packs/Day [...] and heating? Not hard at all 06/19/2023 [facility] [place] of Occupat ional Health - Occupational Stress [...] place to sleep or slept in a assisted (including now)? 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
--- OUTSIDE RECORDS SUMMARY | 2024-06-08 05:29 | XMS_ITS | Encounter Summary ---
Author Organization [facility] Health Address [address] [place] [address] Care Team Providers Care Sericulture Teacher Name Role Phone Elizabeth Sullivan RN Unavailable Dany Monsivais MD Primary Care Provider [phone] Reason for Visit * Reason Onset Date Comments Care Management 02/15/2024 Encounter Details Date Type Department Care Team (Late st Contact Info) Description 02/15/2024 Telephone [facility] - Neurology [address] [facility], [place] [phone] Juan Jose Gilbert, COW TENDER-COUNSELOR AIDE [address] [place] [address] Care Management Social History Tobacco Use Types [...] and heating? Not hard at all 06/19/2023 [facility] [place] of Occupat ional Health - Occupational Stress [...] to sleep or slept in a senior living (including now)? No 06/19/2023 Sex and Gender [...] Telephone Encounter - Michaela Bass RN - 02/15/2024 2:48 PM CDT Spoke with sister Adriane and let her know that if she is worried about patient's safety at [facility] that the only other option at this point would be to have him transferred to another [facility] such as [facility] or [facility]. She v/u and will call the hospitalist. * Telephone Encounter - Michaela Bass RN - 02/15/2024 12:44 PM CDT Received a call from patient's sister Adriane. Pt is still at [facility] waiting for a bed. States thatthe hospitalist would like to speak with me and asked her if I could find a bed for him. She told the doc that I work in the outpatient clinic and cannot coordinate a bed for him States that he is still having seizures. Updating us on his condition. States that they do not havethe monitoring that [facility]. States that they are not even sure about how many seizures the patient is having. 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
--- OUTSIDE RECORDS SUMMARY | 2024-06-08 05:29 | XMS_ITS | Encounter Summary ---
Author Organization [facility] Health Address [address] [place] [address] Care Team Providers Care Behavioral Psychologist Name Role Phone Elizabeth Sullivan RN Unavailable [phone] Dany Monsivais MD Primary Care Provider [phone] Reason for Visit * Reason Onset Date Comments Care Management 02/16/2024 Encounter Details Date Type Department Care Team (Late st Contact Info) Description 02/16/2024 Telephone [facility] - Neurology [address] [facility], [place] [phone] Juan Jose Gilbert, TRIAL ATTORNEY-PBX MECHANIC [address] [place] [address] Care Management Social History Tobacco Use Types [...] and heating? Not hard at all 06/19/2023 [facility] [place] of Occupat ional Health - Occupational Stress [...] Miscellaneous Notes * Telephone Encounter - Michaela Bass, ALFRED - 02/16/2024 10:18 AM CDT Spoke with Angela James MICROPHONE BOOM OPERATOR at [facility]. States that they do not have a continuous EEG but did a 20 minute EEG observation and no activity was noted. They are at a loss as to what to do[facility] and has a call out to [facility]. Would like to make medication changes but would like to speak with someone on our Seizure Team before doing so. 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
--- OUTSIDE RECORDS SUMMARY | 2024-06-08 05:29 | XMS_ITS | Encounter Summary ---
Author Organization [facility] Address [address] [place] [address] Care Team Providers Care Bar Helper Name Role Phone Elizabeth Sullivan RN Unavailable [phone] Joyce Luevano AUTOMOTIVE REFINISHER-SPECIAL EDUCATION PROFESSOR Primary Care Provider [phone] Reason for Referral * Consultation (Routine) - Pending Review Specialty Diagnoses / Procedures Referred By Anabella dan Referred To Contact Diagnoses Encounter for feeding tube placement Quan Gan MD [address] [facility] [place], [place] Referral ID Status Reason Start Date Expiration Date Visits Requested Visits Authorized [id number] Pending Review Specialty Services Required 09/06/2023 09/05/2024 1 1 Reason for Visit * Reason Comments FEEDING TUBE PROBLEM BIBEMS from [facility] for evaluation of clogged G-tube. Pt is at normal mentation status, trached with O2 and VSS. * Auth/Cert (Routine) Specialty Diagnoses / Procedures Referred By Anabella dan Referred To Contact Referral ID Status Reason Start Date Expiration Date Visits Re quested Visits Authorized [id number] 1 1 Encounter Details Date Type Department Care Team ([facility] st Contact Info) Description 09/06/2023 12:50 PM CDT - 09/09/2023 6:00 PM CDT Emergency [facility] 8S ACUTE [address] [place] [id number] Elizabeth Hernandez MD [address] [facility] [place] [id number] Quan Gan MD [address] [facility] [place], [place] [address] [facility] [address] Germaine Nails MD [address] [place] [address] Discharge Disposition: Critical Access Hospital Social History Tobacco Use Types Packs/Day Years [...] and heating? Not hard at all 06/19/2023 [employer] Occup[employer] ional Health - Occupational Stress [...] place to sleep or slept in a fdc (including now)? No 06/19/2023 Sex and Gender Information Value Date Recorded Sex Assigned at Not on file Gender Identity Not on file Sexual Orientation Not on file documented as of this encounter Last Filed Vital Signs Vital Sign Reading Time Taken Comments Blood Pressure 159/82 09/09/2023 4:15 PM CDT Pulse 55 09/09/2023 4:15 PM CDT Temperature 36.3 ??C (97.4 ??F) 09/09/2023 9:39 AM CD T Respiratory Rate 19 09/09/2023 4:15 PM CDT Oxygen Saturation 100% 09/09/2023 4:15 PM CDT Inhaled Oxygen Concentration 28% 09/09/2023 3 :27 PM CDT Weight 80 kg (176 lb 5.9 oz) 09/08/2023 9:49 PM CDT Height 182.9 cm (6' 0.01 ) 09/08/2023 9:49 PM CD T Body Mass Index 23.91 09/08/2023 9:49 PM CDT documented in this encounter Functional Status [...] 06/19/2023 documented as of this encounter Discharge Summaries * Nas Guerrier, - 09/09/2023 6:16 PM CDT [facility] INTERNAL MEDICINE DISCHARGE SUMMARY PATIENT: Bi Tabor 63 year old male : 1960 ADMISSION INFORMATION ADMISSION DISCHARGE Date: 09/06/2023 Date: 09/09/2023 Admitting Physician Germaine Nails MD Discharge Physician: Germaine Nails MD Present on admission: Dehydration?? Anemia, unspecified type?? Hypertension, unspecified type?? Encounter for feeding tube placement Discharge Diagnoses: Dehydration?? Anemia, unspecified type?? Hypertension, unspecified type?? Encounter for feeding tube placement Admission Condition: poor Discharged Condition: fair Consults: Interventional Radiology HOSPITAL COURSE Hospital Course: Patient is 63 M with PMHx of CVA's and vascular dementia, remote TBI c/b??epilepsy??(L tempero-occipital lobes), CHRF s/p trach,??dysphagia c/b??chronic aspiration s/p??PEG, HTN, HLD,??and??PAD s/p LAKA who presents due to concerns of a clogged G tube. On arrival, vital signs were stable. Labs were unremarkable, although concern for dehydration??per??ED. Patient received 1L NS. G-tube functioning appropriately. Admitted to medicine pending evaluation for exchange of G-tube for GJ-tube. PCP informed hospital staff that patient had a DVT diagnosed 08/01/23 so patient was started on gtt. GJ conversion took place on 09/08 and he was subsequently discharged. Note to PCP (e.g. vitals, labs, imaging, medication start/stop, etc. to follow): 1. Please follow up with electrolytes when patient begins tube feeds again. Significant Diagnostic Studies: Labs this admission: CBC: Recent Labs Lab 09/09/23 0655 09/08/23 1641 09/06/23 1716 WBC 5.1 5.6 6.8 HGB 10.5* 12.3* 11.9* HCT 30.2* 36.4* 36.0* MCV 94.4 94.3 95.5 PLTCOUNT 178 197 154 BMP: Recent Labs Lab 09/09/23 0430 09/08/23 0515 09/07/23 0457 NA 142 143 144 POTASSIUM 3.1* 3.5 3.8 CL 110* 109* 107 BUN <5* 7 12 CREATININE 0.46* 0.47* 0.56* CALCIUM 8.8 9.4 8.7 CMP: Recent Labs Lab 09/06/23 1716 06/28/23 0143 06/27/23 0156 AST 21 27 21 ALT 15 26 21 TBILI 0.4 0.3 0.2 ALKPHOS 83 108 103 ALB 2.8* 2.8* 2.7* PROT 7.3 7.2 7.1 Coagulation: Recent Labs Lab Units 09/09/23 0430 09/08/23 1641 09/06/23 1716 PT Seconds 17.6* 15.2* 16.4* INR 1.5 1.2 1.4 Pertinent Microbiology: reviewed Pending labs: none Imaging: (only include the pertinent ones) No results found. Discharge Exam: Vitals: BP 159/82 Pulse 55 Temp 97.4 ??F (36.3 ??C) (Oral) Resp 19 Ht 1.829 m (6' 0.01 ) Wt 80 kg(176 lb 5.9 oz) SpO2 100% Gen: Alert, cooperative, no distress Head: Trach collar in place with minimal secretions Eyes: Conjunctivae/corneas clear, EOMI Nose: Mucosa normal. No drainage. Throat: Moist mucous membranes Neck: No JVD, no carotid bruit, trachea midline Back: Symmetric, no curvature Resp: CTAB, no wheezes/crackles CV: RRR, S1S2, No M/R/G Abd: S/NT/ND, BS+, no bruits, G tube in place with no obvious signs of infection Ext: No clubbing, cyanosis, edema; no skin changes consistent with venous stasis or arterial disease. S/p L AKA Skin: Skin color, texture, turgor normal. No rashes or lesions Neuro: AOx3 at baseline DISCHARGE PLANNING Disposition: retirement facility Patient Instructions: Medication List CONTINUE taking these medications acetaminophen 325 MG tablet Commonly known as: Tylenol 2 (two) tablets by Enteral Tube route every 6 hours as needed Maximum allowable Acetaminophen amount = 4 Grams (4000 mg) / 24 hours. albuterol-ipratropium 0.5-2.5 (3) MG/3ML nebulizer solution Commonly known as: Duo-Neb apixaban 5 MG tablet Commonly known as: Eliquis Take 1 (one) tablet by mouth 2 times daily Per G-tube Start taking on: September 10, 2023 artificial tears ophthalmic ointment Instill into both eyes every 8 hours aspirin 81 MG chew tablet Commonly known as: Aspirin atorvastatin 40 MG tablet Commonly known as: Lipitor 1 (one) tablet by Enteral Tube route at bedtime bisacodyl 10 MG suppository Commonly known as: Dulcolax calcium carbonate (500 mg elemental Ca/5 mL) 1250 MG/5ML suspension 5 mL by Enteral Tube route every 6 hours as needed cloBAZam 20 MG tablet Commonly known as: Onfi 1 (one) tablet by Enteral Tube route 2 times daily for 90 days famotidine 20 MG tablet Commonly known as: Pepcid 1 (one) tablet by Enteral Tube route 2 times daily folic acid 1 MG tablet Commonly known as: Folvite 1 (one) tablet by Enteral Tube route once daily guaiFENesin 100 MG/5ML solution Commonly known as: Robitussin 15 mL by Enteral Tube route Every 6 Hours (03,09,15,21) lacosamide 200 MG tablet Commonly known as: Vimpat 1 (one) tablet by Per G Tube route 2 times daily for 90 days levETIRAcetam 100 MG/ML oral solution Commonly known as: Keppra 20 mL by Enteral Tube route 2 times daily for 90 days metoprolol tartrate IR 25 MG tablet Commonly known as: Lopressor 1 (one) tablet by Enteral Tube route 2 times daily pantoprazole 40 MG packet Commonly known as: Protonix Take 1 (one) packet by mouth once daily polyethylene glycol 3350 17 g packet Commonly known as: Miralax 17 (seventeen) g by Enteral Tube route 2 times daily sennosides 8.6 MG tablet Commonly known as: Senokot 1 (one) tablet by Enteral Tube route once daily thiamine 100 MG tablet Commonly known as: Vitamin B-1 1 (one) tablet by Enteral Tube route once daily valproic acid 250 MG/5ML solution Commonly known as: Depakene 20 mL by Per G Tube route every 6 hours for 90 days Where to Get Your Medications Information about where to get these medications is not yet available Ask your nurse or doctor about these medications ?? apixaban 5 MG tablet Discharge Instructions DISCHARGE INSTRUCTIONS? A MESSAGE FROM YOUR DOCTORS:?? Dear Bi Tabor,? Patient is 63 M with PMHx of CVA's and vascular dementia, remote TBI c/b epilepsy (L tempero-occipital lobes), CHRF s/p trach, dysphagia c/b chronic aspiration s/p PEG, HTN, HLD, and PAD s/p L AKA who presents due to concerns of a clogged G tube. On arrival, vital signs were stable. Labs were unremarkable, although concern for dehydration per ED. Patient received 1L NS. G-tube functioning appropriately. Admitted to medicine pending evaluation for exchange of G-tube for GJ-tube. Done on 09/08 andpatient discharged back to facility. Hold Eliquis until 09/10. Your inpatient medicine team ? Other than the changes stated above, continue all other home medications as prescribed.? Please discuss these changes with your Primary Care Physician (or your specialist doctor).?? If you have any questions about your medications, please ask the pharmacy when you last picker your prescription. You may also call your primary provider if you still have questions.? ? 2. FOLLOW-UP:? A) Below are your scheduled appointments? Future Appointments As directed Outpatient Referral: Referral to Interventional Radiology ? -If you are not going home but to Rehab or Alf, ask the providers there about going to future appointments.?? ? B) It is essential that you keep all your follow-up appointments and go to your doctors??? appointments as scheduled. If a follow-up with your primary care provider has not been scheduled, you need to schedule an appointment to follow- up on your hospitalization within 1-2 weeks. If there is a conflict, please call the clinic ahead of time and reschedule the appointment.? ? 3.? Wound Care instructions IF APPLICABLE? NA? 4. ?Lifestyle Modifications? -It is very important for your health to AVOID/STOP smoking cigarettes. Please talk to your primarycare physician if you need help quitting smoking.? -Please include plenty of fruits and vegetables in your diet and maintain a healthy diet.? -Discuss an exercise program with your primary care physician. It is recommended that most individuals should exercise for 20 minutes at least 5 times per week.? Please call your Primary Care Provider, report to the nearest emergency room or call 911 if you develop new or concerning symptoms, including, but not limited to, fever, chest pain, palpitations, numbness, worsening confusion, weakness in arms/legs, dizziness, or worsening shortness of breath.? Thank you for allowing us to participate in your care!? ? Internal Medicine Team? [facility] [address]? [place] [address]? Signed: Nas Guerrier DO Internal Medicine Resident [facility] 09/09/2023 6:16 PM Associated attestation - Germaine Nails MD - 09/10/2023 1:04 PM CDT Attending Physician Attestation I have seen and examined the patient with the resident and I agree with the findings and plan of care as documented by the resident. Date of Service: 09/09/2023 Germaine Nails MD, FACP documented in this encounter Discharge Instructions * Discharge Instructions* Felicitas Almanzar MD - 09/06/2023 8:11 PM CDT DISCHARGE INSTRUCTIONS? A MESSAGE FROM YOUR DOCTORS:?? Dear Bi Tabor,? Patient is 63 M with PMHx of CVA's and vascular dementia, remote TBI c/b epilepsy (L tempero-occipital lobes), CHRF s/p trach, dysphagia c/b chronic aspiration s/p PEG, HTN, HLD, and PAD s/p L AKA who presents due to concerns of a clogged G tube. On arrival, vital signs were stable. Labs were unremarkable, although concern for dehydration per ED. Patient received 1L NS. G-tube functioning appropriately. Admitted to medicine pending evaluation for exchange of G-tube for GJ-tube. Done on 09/08 andpatient discharged back to facility. Hold Eliquis until 09/10. Your inpatient medicine team ? Other than the changes stated above, continue all other home medications as prescribed.? Please discuss these changes with your Primary Care Physician (or your specialist doctor).?? If you have any questions about your medications, please ask the pharmacy when you last picker your prescription. You may also call your primary provider if you still have questions.? ? 2. FOLLOW-UP:? A) Below are your scheduled appointments? Future Appointments As directed Outpatient Referral: Referral to Interventional Radiology ? -If you are not going home but to Rehab or Alf, ask the providers there about going to future appointments.?? ? B) It is essential that you keep all your follow-up appointments and go to your doctors??? appointments as scheduled. If a follow-up with your primary care provider has not been scheduled, you need to schedule an appointment to follow- up on your hospitalization within 1-2 weeks. If there is a conflict, please call the clinic ahead of time and reschedule the appointment.? ? 3.? Wound Care instructions IF APPLICABLE? NA? 4. ?Lifestyle Modifications? -It is very important for your health to AVOID/STOP smoking cigarettes. Please talk to your primarycare physician if you need help quitting smoking.? -Please include plenty of fruits and vegetables in your diet and maintain a healthy diet.? -Discuss an exercise program with your primary care physician. It is recommended that most individuals should exercise for 20 minutes at least 5 times per week.? Please call your Primary Care Provider, report to the nearest emergency room or call 911 if you develop new or concerning symptoms, including, but not limited to, fever, chest pain, palpitations, numbness, worsening confusion, weakness in arms/legs, dizziness, or worsening shortness of breath.? Thank you for allowing us to participate in your care!? ? Internal Medicine Team? [facility] [address]? [place] [address]? documented in this encounter Medications at Time [...] 2 times daily for 90 days 06/28/2023 09/12/2023 lacosamide (Vimpat) 200 MG tablet 1 (one) [...] as of this encounter Progress Notes * Vito Gavin RN - 09/09/2023 4:47 PM CDT Facility Transfer Note Level of Care: Actual level of care at discharge: [facility] Facility Name: (include name of person confirming admission): [facility] Made Aware of Special Needs (if applicable): No new needs. RN Call Report to: ask for 500 perez nurse Fax D/C Orders to: Transportation (company and number): [employer] [facility] [employer] Trip number [phone] last picker [phone] Certificate of Medical Necessity rationale: bed bound with trach and peg and total care. Date/time of transfer: Accepting MD and contact #: Dr. Dany Monsivais [phone]. Completed and Signed [id number] (if applicable): NA-Patient is a return. Family/Other Notified of Transfer (name/phone): dAriane Hilliard [phone] Authorization Skilled Care: Authorization for Transportation: Verified Qualifying Stay(Skilled Only): NOT APPLICABLE Comments: Name/Phone number: Vito Gavin RN [phone] * Maggy Rankin RN - 09/09/2023 4:13 PM CDT Interventional Radiology Nursing - End Procedure Note Sedation: None Procedure start time: 1603 hours Procedure end time: 1610 hours Additional drugs: None Contrast: 10 mL of Isovue-300 Fluoroscopy time: 2.2 min * Mariano Cullen MD - 09/09/2023 3:54 PM CDT Interventional Radiology Preprocedure Attestation For this encounter, I have personally reviewed the patient's notes, labs, imaging, medications, andallergies. I agree with the plan to perform G to GJ Conversion. Allergies Allergen Reactions ??? Clonazepam Psychiatric hallucinations LAB RESULTS: Recent Labs Component Name 09/09/23 0655 09/08/23 1641 09/06/23 1716 03/09/22 0135 03/08/22 1455 WBC 5.1 5.6 6.8 - 20.8* HGB 10.5* 12.3* 11.9* - 14.3 HCT 30.2* 36.4* 36.0* - 42.9 PLTCOUNT 178 197 154 - 211 PLATELET - - - - Occasional* - = values in this interval not displayed. Recent Labs Component Name 09/09/23 0430 09/08/23 1641 09/06/23 1716 INR 1.5 1.2 1.4 Recent Labs Component Name 09/09/23 0430 09/08/23 0515 09/07/23 0457 NA 142 143 144 GLUCOSE 88 88 79 CREATININE 0.46* 0.47* 0.56* EGFR >90 >90 >90 Recent Labs Component Name 09/06/23 1716 06/28/23 0143 06/27/23 0156 ALB 2.8* 2.8* 2.7* TBILI 0.4 0.3 0.2 ALT 15 26 21 AST 21 27 21 ALKPHOS 83 108 103 Based on the above information, the patient is an appropriate candidate for the level of sedation planned. I also spoke to patient and obtained consent after explaining the risks and benefits. Mariano Cullen MD 09/09/2023 3:54 PM * Gaurav Juarez, REIMBURSEMENT ANALYST - 09/09/2023 1:51 PM CDT Care Coordination Progress Note Anticipated level of care at discharge: Alf - Skilled Facility Comment: [facility]]: Anticipated level of care provider: [facility] Anticipated Discharge Date: 09/13/23: Discharge Plan: SW following for this pt to return to SNF once medically ready. Orientation Level: Other (Comment): Family Support (Name and Phone): Extended Emergency Contact Information Primary Emergency Contact: Adriane Hilliard Mobile Relation: Sister Retirement Village Manager needed? No Secondary Emergency Contact: Amarjit Tabor [facility] Relation: Brother Transportation at Discharge: Ambulance: READMISSION RISK SCORE is N/A at 1:51 PM 09/09/2023.: Name: CLARITA Ram * Ivy Mata RN - 09/09/2023 1:27 PM CDT Case Management Initial Assessment Case Management screen completed & Welcome Letter given. Anticipated level of care at discharge: Alf - Skilled Facility Comment: [facility] Discharge Plans: Plan is for the pt to return to facility ([facility]) when medically cleared by the tx team. Prior Level of Functioning: Pt is able to use facility equipment if needed for mobility purposes. Pt can get help from facility staff if needed. Lives with: Other (Comment) Discharge Goals and Plans: Patient Goals: Attempted to assess pt at bedside; pt sleeping and in with nursing. Plan is for pt to return to facility. Plans: Discharge needs identified. See progress notes for details. Case Management to follow for discharge planning. Verify Family Support (name and phone): Extended Emergency Contact Information Primary Emergency Contact: Adriane Hilliard Mobile Relation: Sister Retirement Village Manager needed? No Secondary Emergency Contact: SharonaAmarjit [facility] Relation: Brother Patient or clearance representative requests care coordination reach out to family or caregiver listed above regarding discharge planning and at time of discharge? No Anticipated Discharge Date: 09/13/23 Patient/Family provided with list of resources? No Preferred Provider / High Quality Network List given?: No Reason for provider choice: Pt. choice - previous provider, Pt. choice - Physician driven Transportation at Discharge: Ambulance Transportation to MD appointments: Ambulance Equipment at Home: Equipment at Home: Facility equipment List DME pt. requires but does not have.: None If no PCP, action taken: ELANA Saldaña is PCP Pharmacy benefit: No Medication affordability concerns: No Hunger Screening: Deck Officer Referral: Yes If patient requires HHC at discharge, he/she requests: Patient agreeable to speak with [facility] at Home Will continue to follow. For any questions or needs please contact: Callisthenics Instructor Name/Phone number: Ivy Mata RN [phone] * Nanci Hawk RN - 09/08/2023 9:52 PM CDT Problem: Nutrient: Inadequate protein-energy intake Goal: Total intake will meet estimated nutrient needs Outcome: Progressing Problem: Pain/Discomfort Goal: Patient exhibits reduced pain/discomfort as evidenced by pain scores Outcome: Progressing Goal: Patient uses pharmacological and non-pharmacological pain management strategies. Outcome: Progressing Goal: Patient verbalizes acceptable level of pain relief and ability to engage in desired activity. Outcome: Progressing Problem: Impaired Gas Exchange Goal: Resp rate/effort will be within specified limits Outcome: Progressing * Nas Guerrier DO - 09/08/2023 3:47 PM CDT PCP office returned call with STEAM AND POWER SUPERINTENDENT Eliquis indication. Patient was diagnosed with DVT in his L subclavian vein and was started on Eliquis 5 mg BID. Discharge summary from this admission dated 08/01/23. Heparin gtt ordered. IR notified. Records will be faxed over. * Malathi Varma RN - 09/08/2023 2:36 PM CDT Spoke with Nohemi chiang RN: pt tentatively on schedule for tomorrow pending caseload, please keep pt NPO after midnight (including tube feeds), ensure pt has working IV, pt should be completely undressed in just a patient gown. Please call IVR at [phone] with any questions/updates. * Nas GuerrierDO - 09/08/2023 10:06 AM CDT [facility] INTERNAL MEDICINE PROGRESS NOTE Patient: Bi Tabor Sex: male Age: [age] year old Date of : 1960 Date of Admission: 09/06/2023 Date: 09/08/2023 LOS: 0 SUBJECTIVE Interval History: No acute events overnight. Patient resting comfortably on exam. IR GJ conversion tentatively for today, possibly tomorrow. Hospital Course: Patient is 63 M with PMHx of CVA's and vascular dementia, remote TBI c/b epilepsy (L tempero-occipital lobes), CHRF s/p trach, dysphagia c/b chronic aspiration s/p PEG, HTN, HLD, and PAD s/p L AKA who presents due to concerns of a clogged G tube. On arrival, vital signs were stable. Labs were unremarkable, although concern for dehydration per ED. Patient received 1L NS. G-tube functioning appropriately. Admitted to medicine pending evaluation for exchange of G-tube for GJ-tube. OBJECTIVE Vital Signs: Vitals: 09/08/23 0733 09/08/23 0803 09/08/23 0833 09/08/23 0834 BP: 124/77 143/83 133/78 Pulse: 70 67 70 Resp: Temp: SpO2: 98% 97% 97% 97% Weight: Height: Temp Min: 96.6 ??F (35.9 ??C) Max: 96.6 ??F (35.9 ??C), Pulse Min: 45 Max: 89, Resp Min: 11 Max: 20, BP Min: 119/77 Max: 189/85 Intake & Output: No intake/output data recorded. Physical Exam: Physical Exam Eyes: General: No scleral icterus. Cardiovascular: Rate and Rhythm: Normal rate and regular rhythm. Heart sounds: No murmur heard. No friction rub. No gallop. Pulmonary: Breath sounds: No wheezing, rhonchi or rales. Comments: Trach in place Abdominal: General: Bowel sounds are normal. Tenderness: There is no abdominal tenderness. Comments: G tube without signs of infection or discharge Musculoskeletal: Right lower leg: No edema. Left lower leg: No edema. Comments: S/p AKA Neurological: General: No focal deficit present. Current Medications: Scheduled: ??? 0.9% NaCl 3 mL Intracatheter q8h ??? artificial tears Each Eye q8h ??? atorvastatin 40 mg Enteral Tube AT BEDTIME ??? cloBAZam 15 mg Enteral Tube QDAY ??? famotidine 20 mg Enteral Tube BID ??? folic acid 1 mg Enteral Tube QDAY ??? guaiFENesin 15 mL Enteral Tube Every 6 Hours (03,09,15,21) ??? lacosamide 200 mg Oral BID ??? levETIRAcetam 2,000 mg Enteral Tube BID ??? polyethylene glycol 3350 17 g Enteral Tube BID ??? potassium phosphate 30 mmol Intravenous Once ??? sennosides 8.6 mg Enteral Tube QDAY ??? thiamine 100 mg Enteral Tube QDAY ??? valproic acid 500 mg Per G Tube q6h Continuous: PRN: ??? SALINE LOCK, INSERT AND MAINTAIN AND 0.9% NaCl AND 0.9% NaCl ??? acetaminophen ??? albuterol-ipratropium ??? bisacodyl ??? calcium carbonate (500 mg elemental Ca/5 mL) Significant Lab Results: reviewed Microbiology: reviewed Imaging & Studies: reviewed ASSESSMENT & PLAN Dehydration (POA: Unknown) Anemia, unspecified type (POA: Unknown) Hypertension, unspecified type (POA: Unknown) Encounter for feeding tube placement (POA: Unknown) #PEG malfunction - resolved #Chronic aspiration - IR consulted, plan for GJ conversion today/tomorrow schedule pending - continue NPO - Nutrition consult for tube feed recs, resume when cleared by IR ? #Epilepsy - resumed home Keppra, Onfi, Depakene, and Vimpat - med list confirmed yesterday #Chronic hypoxic respiratory failure - trach care ordered - Respiratory consulted for assistance with trach - Robitussin q6H ?? #PAD s/p L AKA #HLD #Hx CVAs #Vascular dementia - home ASA and lipitor - PT/OT ordered, patient at baseline ?? #HTN - holding metoprolol for HR in 40s overnight ?? #Anticoagulation - Unclear why patient on Eliquis 5 BID at facility - No history of Afib, DVT, or PE per chart review - holding home Eliquis for now - PCP unsure as they have only seen the patient once, will call [facility] for further investigation ?? #Hx alcohol use PLAN: - continue home thiamine and folic acid ?? #Normocytic anemia, chronic - Transfuse hgb < 7 - Consider iron panel ?? Code: Full Diet: NPO Electrolytes: Replete PRN PPx: holding for procedure Access: PIV Dispo: Admit to Medicine. The above assessment and plan will be discussed with the attending. This note is not final until attested by attending physician. Nas Guerrier DO Internal Medicine Resident [facility] 09/08/2023 10:06 AM [facility] Transfer Checklist: Reasons for Transfer to [facility] Medically stable, awaiting IR placement GJ tube Brief Hospital Course Patient is 63 M who presents due to concerns of a clogged G tube. On arrival, vital signs were stable. Labs were unremarkable, although concern for dehydration per ED. Patient received 1L NS. G-tube functioning appropriately. Admitted to medicine pending evaluation for exchange of G-tube for GJ-tube. IR consulted, procedure planned today/tomorrow. Pertinent PMH: CVA's and vascular dementia, remote TBI c/b epilepsy (L tempero-occipital lobes), CHRF s/p trach, dysphagia c/b chronic aspiration s/p PEG, HTN, HLD, and PAD s/p L AKA Home Meds Being Held: Metoprolol due to HR in 40s overnight; Eliquis holding AC per IR ABx Indications/End Date: none Consult Teams Past and Present: IR Pending Workup: none Things to Watch: none Disposition Place and Date: Back to SNF post procedure To Address Prior to DC: Family had concerns about care at SNF, consider new facility Follow Up Appointments: (Already arranged and need to arranged) none To Address after DC (F/U etc): none Wound care instructions (if applicable) none Please add PRN Narcan order if appropriate for this patient none Associated attestation - Germaine Nails MD - 09/09/2023 3:15 PM CDT Attending Physician Attestation I have seen and examined the patient with the resident and I agree with the findings and plan of care as documented by the resident. Date of Service: 09/08/2023 Germaine Nails MD, FACP * Pardeep Walton RCP - 09/07/2023 8:36 PM CDT Patient suctioned x3. Moderate amount thick marie secretions. No adverse reaction noted. Emergency trach supplies not in room, will return with supplies. * Simona Ramirez PT - 09/07/2023 12:15 PM CDT [facility] Department of Physical Medicine & Rehabilitation Patient: Bi Tabor [facility] Record Number: [id number] Date of : 1960 Age: [age] year old PT orders received and chart reviewed. Per chart review of previous admissions, pt is from a NH anddependent at baseline for all mobility. No skilled PT intervention is indicated at this time. Will d/c from??PT??caseload.?? * Gretchen Marcus OT - 09/07/2023 11:57 AM CDT [facility] Department of Physical Medicine & Rehabilitation Progress Note Patient: Bi Tabor [facility] Record Number: [id number] Date of : 1960 Age: [age] year old OT orders received. Chart reviewed. Per chart review of previous admissions, pt is from a NH and dependent at baseline for ADLs and transfers. No skilled OT intervention is indicated at this time. Will d/c from OT caseload.? * Nas Guerrier DO - 09/07/2023 7:17 AM CDT Discussed with IR, they will accept case for G to GJ conversion, likely to occur tomorrow at the earliest. Holding all anticoagulation at this time. Patient will remain NPO until cleared by IR. Called facility and updated inpatient medications. LR at 100 mL/hr for maintenance since he is NPO. Physical exam: HEENT: white plaques on tongue, trach in place Cardiac: RRR Pulmonary: CTAB Abdominal: G tube site without strikethrough, + bowel sounds, nontender MSK: s/p L AKA Neuro: AOx3, moves all 4 extremities spontaneously Rest of care per H&P. documented in this encounter H&P Notes * Harris Garrett MD - 09/07/2023 2:39 AM CDT [facility] INTERNAL MEDICINE HISTORY & PHYSICAL NOTE Date of Admission: 09/06/2023 Patient: Bi Tabor Sex: male Age: [age] year old Date of : 1960 Code Status: Full Code SUBJECTIVE Chief Complaint: G-tube clogged History of Present Illness: Bi Tabor is a 63 year old male with PMH of CVA's and vascular dementia, remote TBI c/b epilepsy (L tempero-occipital lobes), CHRF s/p trach, dysphagia c/b chronic aspiration s/p PEG, HTN, HLD, and PAD s/p L AKA who presents from [facility] due to concern of clogged G-tube. Reportedly, patient had prior GJ tube which malfunctioned during admission last month at [facility] requiring temporary G-tube placement. Family had been told patient would need GJ tube replacement at [facility]. Patient reports that at his facility, there had been on and off leaking for PEG tube. He reports getting his tube feeds daily, although family was concerned patient wasn't per chart review. On arrival, vital signs were stable. Labs were unremarkable, although concern for dehydration per ED. Patient received 1L NS. G-tube functioning appropriately. Admitted to medicine pending evaluationfor exchange of G-tube for GJ-tube. Past Medical History: Past Medical History: Diagnosis Date ??? Cerebrovascular disease ??? HTN (hypertension) ??? Seizure (HCC) Past Surgical History: Past Surgical History: Procedure Laterality Date ??? ENDOSCOPY, UPPER N/A 03/25/2022 N/A; ESOPHAGOGASTRODUODENOSCOPY (EGD) DIAGNOSTIC with PEG Placement ??? ENT SURGERY N/A 07/15/2022 N/A; TRANSCERVICAL ZENKERS DIVERTICULECTOMY, OPEN TRACHEOSTOMY ??? 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 SINUS SURGERY N/A 11/26/2022 N/A; Bilateral Nasal Endoscopy, Right polypectomy, Right Maxillary Antrostomy, Rihjy Anterior Ethmoidectomy Family History: No family history on file. Social History: Social History Socioeconomic History ??? Marital status: [...] No Stress: No Stress Concern Present (06/19/2023) [employer] - Occupational Stress Questionnaire ??? Feeling of Stress : Not at all Housing Stability: Low Risk (06/19/2023) Housing Stability Vital Sign ??? Unable to Pay for Housing in the Last Year: No ??? Number of Places Lived in the Last Year: 1 ??? Unstable Housing in the Last Year: No Allergies: Allergies Allergen Reactions ??? Clonazepam Psychiatric hallucinations Home Medications: No current facility-administered medications on file prior [...] route Every 6 Hours (,,,) 200 mL 0 ??? lacosamide (Vimpat) 200 [...] route every 6 hours for 90 days (Patient taking differently: 10 mL by Per G Tube route every 6 hours) Current Medications: Scheduled: ??? 0.9% NaCl 3 mL Intracatheter q8h ??? apixaban 5 mg Enteral Tube BID ??? artificial tears Each Eye q8h ??? aspirin 81 mg Enteral Tube QDAY ??? atorvastatin 40 mg Enteral Tube AT BEDTIME ??? cloBAZam 10 mg Enteral Tube BID ??? famotidine 20 mg Enteral Tube BID ??? folic acid 1 mg Enteral Tube QDAY ??? guaiFENesin 15 mL Enteral Tube Every 6 Hours (,,15,) ??? lacosamide 200 mg Oral BID ??? levETIRAcetam 2,000 mg Enteral Tube BID ??? metoprolol tartrate IR 25 mg Enteral Tube BID ??? polyethylene glycol 3350 17 g Enteral Tube BID ??? sennosides 8.6 mg Enteral Tube QDAY ??? thiamine 100 mg Enteral Tube QDAY ??? valproic acid 500 mg Per G Tube q6h Continuous: PRN: ??? SALINE LOCK, INSERT AND MAINTAIN AND 0.9% NaCl AND 0.9% NaCl ??? acetaminophen ??? albuterol-ipratropium ??? bisacodyl ??? calcium carbonate (500 mg elemental Ca/5 mL) Review of Systems: Review of Systems Constitutional: Negative for chills and fever. Eyes: Negative for blurred vision. Respiratory: Negative for cough and shortness of breath. Cardiovascular: Negative for chest pain. Gastrointestinal: Negative for abdominal pain, nausea and vomiting. Genitourinary: Negative for dysuria. Neurological: Negative for dizziness and headaches. OBJECTIVE Vital Signs: Temp: [96.6 ??F (35.9 ??C)] 96.6 ??F (35.9 ??C) Pulse: [52-80] 70 Resp: [11-18] 18 BP: (136-178)/(73-96) 165/83 Physical Exam: Physical Exam Constitutional: Appearance: He is ill-appearing. Comments: Disheveled HENT: Mouth/Throat: Mouth: Mucous membranes are moist. Comments: White plaques on tongue Eyes: Extraocular Movements: Extraocular movements intact. Neck: Comments: Trach in place Cardiovascular: Rate and Rhythm: Normal rate and regular rhythm. Pulses: Normal pulses. Heart sounds: Normal heart sounds. Pulmonary: Effort: Pulmonary effort is normal. Breath sounds: Normal breath sounds. Abdominal: General: Bowel sounds are normal. Palpations: Abdomen is soft. Tenderness: There is no abdominal tenderness. Comments: PEG in place, minimal drainage at opening site Musculoskeletal: Cervical back: No tenderness. Right lower leg: No edema. Left lower leg: No edema. Comments: Left AKA, BUE contractures in hands but able to open actively and passively Skin: General: Skin is warm and dry. Neurological: Mental Status: He is alert. Comments: AxOx2 Verbal with short sentences, follows commands Lab Results: CBC: Recent Labs Component Name 09/06/23 1716 06/28/23 0143 06/27/23 0156 WBC 6.8 7.7 7.8 HGB 11.9* 12.5* 12.5* HCT 36.0* 37.6* 38.5* MCV 95.5 96.7 99.2* Coagulation Panel: Recent Labs Component Name 09/06/23 1716 06/09/23 1314 02/24/23 1032 PT 16.4* 13.5 14.1 INR 1.4 1.1 1.1 BMP: Recent Labs Component Name 09/06/23171506/28/2314206/27/23 0156 NA 142 136 137 POTASSIUM 4.2 4.7* 4.5 CL 104 104 105 CO2 28 26 BUN 23 CREATININE 0.62* 0.50* 0.55* CALCIUM 9.5 9.2 9.2 Recent Labs Component Name 09/06/23171506/28/2314206/27/23 0156 MAGNESIUM 2.0 1.9 2.0 Recent Labs Component Name 06/28/2314206/27/23 0156 06/26/23 0319 PHOS 2.8 3.5 2.6* Hepatic Panel: Recent Labs Component Name 09/06/23171506/28/2314206/27/2315506/09/23 1314 02/28/23 0541 08/28/22 1251 06/30/22 1039 03/03/18 1745 01/30/18 1255 AST 21 27 21 - 13 - 13 - 14 ALT 15 26 21 - 7 - 5 - 10 ALKPHOS 83 108 103 - 79 - 65 - 75 TBILI 0.4 0.3 0.2 - 0.2 - 0.3 - 0.4 DBILI - - - - 0.1 - 0.2 - 0.2 IBILI - - - - 0.1 - 0.1 - 0.2 ALB 2.8* 2.8* 2.7* - 2.5* - 2.2* - 3.7 - = values in this interval not displayed. ABG: Recent Labs Component Name 06/09/23201306/09/23 1902 06/09/23 1703 01/07/23 1224 01/03/23 1132 12/31/22 2217 PH 7.41 7.27* 7.28* - 7.49* 7.44 PCO2 40 - - - 34* 36 PO2 82 - - - 108* 151* - = values in this interval not displayed. Amylase/Lipase: Invalid input(s): AMYL , LIPA Thyroid Studies: Recent Labs Component Name 06/09/23 1314 TSH 1.238 Cardiac Enzymes: Recent Labs Component Name 01/02/23 1008 07/01/22 1634 06/28/22 0141 06/27/22 2215 05/30/22 1750 CKTOTAL 51 - - - - TROPONINI - - <0.010 <0.010 <0.010 - = values in this interval not displayed. Lipid Panel: Recent Labs Component Name 04/11/15 0622 LDLCALC 102* HDL 81 UA: Unremarkable Microbiology: None Imaging & Studies: None this admission ASSESSMENT & PLAN Dehydration (POA: Unknown) Anemia, unspecified type (POA: Unknown) Hypertension, unspecified type (POA: Unknown) Encounter for feeding tube placement (POA: Unknown) #PEG malfunction - resolved #Chronic aspiration Presented to hospital for concern of clogged G-tube. Functioning now. Reportedly GJ-tube exchanged for g-tube at OSH in July 29 malfunction. GJ had last been exchanged by [facility] IR 01/2023. Now needs to be exchanged for GJ tube by IR. Per prior [employer] roberto, has oropharyngeal dysphagia. Had recurrent aspiration despite g-tube. Require GJ tube conversion / gastroparesis. PLAN: - Consult IR in AM for g-tube conversion to GJ tube (IP vs OP) - continue NPO - Nutrition consult for tube feed recs - Try to get recent [facility] records in AM #Concern for dehydration Labs not concerning of dehydration and not dry on evaluation Received 1L NS in ED PLAN: - CTM lab - hydration and nutrient per tube feeds once resumed in AM #Epilepsy Recent weaning of Onfi per neurology PLAN: - resumed home Keppra, Onfi, Depakene, and Vimpat - Confirm dosage of AED patient receiving at facility, discrepancy b/w chart notes and facility medlist #Chronic hypoxic respiratory failure S/p trach Follows with ENT PLAN: - trach care ordered - Respiratory consulted for assistance with trach - Robitussin q6H #PAD s/p L AKA #HLD #Hx CVAs #Vascular dementia PLAN: - home ASA and lipitor - PT/OT ordered #HTN PLAN: - home metoprolol #Anticoagulation Unclear why patient on Eliquis 5 BID at facility No history of Afib, DVT, or PE per chart review PLAN: - holding home Eliquis for now - Call facility in AM for clarify #Hx alcohol use PLAN: - continue home thiamine and folic acid #Normocytic anemia, chronic PLAN: - Transfuse hgb < 7 - Consider iron panel Code: Full Diet: NPO Electrolytes: Replete PRN PPx: Lovenox Access: PIV Dispo: Admit to Medicine. The above assessment and plan will be discussed with the attending. This note is not final until attested by attending physician. Harris Garrett MD Internal Medicine Resident [facility] 09/07/2023 2:39 AM Associated attestation - Germaine Nails MD - 09/07/2023 5:00 PM CDT Attending Physician Attestation I have seen and examined the patient with the resident and I agree with the findings and plan of care as documented by the resident. Date of Service: 09/07/2023 Germaine Nails MD, FACP documented in this encounter Consult Notes * Mely Layne RD/ONI - 09/07/2023 9:03 AM CDTAssociated Order(s): IP CONSULT TO NUTRITIONAL SERV; IP CONSULT TO NUTRITIONAL SERV Clinical Nutrition Assessment Brief Synopsis: Patient is at Nutrition Risk; Specific criteria can be found in assessment below Nutrition Plan: NPO 2/2 oropharyngeal dysphagia Tube Feeding Recommendations: Osmolite 1.2 at 70 ml/hr. Provides 2016 kcals, 93 g Pro, 265 g carbohydrate, 1378 ml free water +50 ml q 6 hrs free water flush or per MD if on IVF +100 ml q 4 hrs free water flush or per MD if not on additional fluids Recommend starting at 20 ml/hr and increase by 10 ml q 4 hrs until tolerating at goal. - Do not hold unless residuals >500 as recommended by ASPEN. - Signs of intolerance include: diarrhea, abdominal pain or distention. - Head of bed > 30?? Recommendations to Physician: See TF recs above; Replete phosphorus prior to starting TF regimen Comments: RD consulted for TF recs. Noted pt with hx of oropharyngeal dysphagia and gastroparesis, per chart. A/Ox2. PEG tube currently in place; however, chart noted pt being admitted for possible GJ tube replacement due to clogged G-tube; now resolved -- per IM note. Concerns for dehydration noted. Care Manager Cna (0.56) and osmolality (297) -- slightly abnormal. Phos (2.6) -- recommend repletion of phosphorus prior to restarting TF regimen. See TF recs and advancement recs above when placing TF order. RD to follow per clinical nutrition guidelines. Assessment: Med/Surg History and Clinical Diagnoses: 63 year old male with PMH of CVA's and vascular dementia, remote TBI c/b epilepsy (L tempero-occipital lobes), CHRF s/p trach, dysphagia c/b chronic aspiration s/p PEG, HTN, HLD, and PAD s/p L AKA who presents from [facility] due toconcern of clogged G-tube Height: 182.9 cm (6') Weight: 80.3 kg (177 lb) BMI: Body mass index is 24.01 kg/m??. BMI Range: Overweight IBW/lb (Calculated) Male: 178 , Recent Weights/Methods 01/14/2023 2100 01/14/2023 2200 02/23/2023 2144 02/25/2023 0900 06/09/2023 1127 06/18/2023 2349 06/25/2023 0400 09/06/2023 1254 Weight: -- -- 71.5 kg (157 lb 10.1 oz) 71.5 kg (157 lb 10.1 oz) 81.6 kg (180 lb) 81.6 kg (180 lb) 80.3 kg (177 lb) 80.3 kg (177 lb) Weight Method : Bedscale Bedscale Stated -- Estimated Other (Comment) Bedscale -- Wt Comments: reviewed -- no significant weight loss observed since last admission Diet order accuracy Current diet order: NPO Nutrition recommendation: alter/change nutrition order P.O.Intake for the past 48 hrs: No data recorded Supplement(s) Consumed- Last 48 hours None Food Allergies: No known food allergies GI Concerns: (gastroparesis) Chewing/Swallowing: Dysphagia (PEG tube currently; plan for GJ tube replacement) Pain affecting intake: No Estimated Needs: KCAL: 0501-5554 (25-30 kcal/kg ABW) Protein (g): 96g (1.2 g/kg ABW) Fluid (ml): 1 ml/kcal Needs based on: Kcal/kg- (Comment) (ABW of 80.3) Recommended Access Route: TF Laboratory values: Recent Labs Component Name 09/07/23 0457 09/06/23 1716 06/28/23 0143 06/27/23 0156 BUN 12 19 17 23 CREATININE 0.56* 0.62* 0.50* 0.55* NA 144 142 136 137 POTASSIUM 3.8 4.2 4.7* 4.5 CL 107 104 104 105 CO2 28 28 26 26 GLUCOSE 79 84 102 105 CALCIUM 8.7 9.5 9.2 9.2 PROT - 7.3 7.2 7.1 ALB - 2.8* 2.8* 2.7* TBILI - 0.4 0.3 0.2 ALKPHOS - 83 108 103 ALT - 15 26 21 AST - 21 27 21 ANIONGAP 9 10 6 6 BCR 21 31* 34* 42* OSMOLALITY 297* 295 284 288 AGRATIO - 0.6* 0.6* 0.6* EGFR >90 >90 >90 >90 Medications: Current Facility-Administered Medications Medication ??? 0.9% NaCl injection 3 mL And ??? 0.9% NaCl injection 1-10 mL ??? acetaminophen (Tylenol) tablet 650 mg ??? albuterol-ipratropium (Duo-Neb) nebulizer solution 3 mL ??? artificial tears ophthalmic ointment ??? aspirin chew tablet 81 mg ??? atorvastatin (Lipitor) tablet 40 mg ??? bisacodyl (Dulcolax) suppository 10 mg ??? calcium carbonate (500 mg elemental Ca/5 mL) suspension ??? cloBAZam (Onfi) tablet 15 mg ??? [START ON 09/08/2023] enoxaparin (Lovenox) injection 40 mg ??? famotidine (Pepcid) tablet 20 mg ??? folic acid (Folvite) tablet 1 mg ??? guaiFENesin (Robitussin) solution 15 mL ??? lacosamide (Vimpat) tablet 200 mg ??? levETIRAcetam (Keppra) oral solution 2,000 mg ??? metoprolol tartrate IR (Lopressor) tablet 25 mg ??? polyethylene glycol 3350 (Miralax) packet 17 g ??? senna (Senokot) tablet 8.6 mg ??? thiamine (Vitamin B-1) tablet 100 mg ??? valproic acid (Depakene) solution 500 mg Current Outpatient Medications Medication ??? acetaminophen (Tylenol) 325 MG tablet ??? albuterol-ipratropium (Duo-Neb) 0.5-2.5 (3) MG/3ML nebulizer solution ??? apixaban (Eliquis) 5 MG tablet ??? artificial tears ophthalmic ointment ??? aspirin (Aspirin) 81 MG chew tablet ??? atorvastatin (Lipitor) 40 MG tablet ??? bisacodyl (Dulcolax) 10 MG suppository ??? Calcium Carbonate Antacid (calcium carbonate, 500 mg elemental Ca/5 mL,) 1250 MG/5ML suspension ??? cloBAZam (Onfi) 20 MG tablet ??? famotidine (Pepcid) 20 MG tablet ??? folic acid (Folvite) 1 MG tablet ??? guaiFENesin (Robitussin) 100 MG/5ML solution ??? lacosamide (Vimpat) 200 MG tablet ??? levETIRAcetam (Keppra) 100 MG/ML oral solution ??? metoprolol tartrate IR (Lopressor) 25 MG tablet ??? pantoprazole (Protonix) 40 MG packet ??? polyethylene glycol 3350 (Miralax) 17 g packet ??? senna (Senokot) 8.6 MG tablet ??? thiamine (Vitamin B-1) 100 MG tablet ??? valproic acid (Depakene) 250 MG/5ML solution Skin/Wound: WDL Education Provided: Not appropriate Nutrition Care Process (1) Nutrition Diagnostic Statement: Inadequate protein-energy intake related to:: decreased ability to consume or tolerate adequate food and/or fluids due to illness;swallowing difficulty;enteral or parenteral nutrition infusion not yet at goal volume as evidenced by:: oral intake less than .. (NPO) Nutrition Diagnostic Statement Progress: New diagnostic statement established Nutrition Intervention: Enteral nutrition: Monitoring: TF, BM, labs, meds, weight Evaluation: Nutrition Goal: Total intake will meet estimated nutrient needs Nutrition Goal Timeframe: Throughout stay Nutrition Goal Progress: New goal established Mely Layne MS, RD/RDN, LD Ascom: [id number] * Gaurav Avila PA-C - 09/07/2023 8:27 AM CDTAssociated Order(s): IP CONSULT TO INTERVENTIONAL RADIOLOGY Vascular & Interventional Radiology New Inpatient Consult Patient: Bi Tabor Age: [age] year old Date of : 1960 Date of Admission: 09/06/2023 Date: 09/07/2023 Subjective: Referring physician: Ramiro Reason for consult: GJ tube leaking HPI: 63 year old male with medical hx of CHRF, CVA, dementia, dysphagia with recurrent aspiration and gastroparesis despite g tube who previously underwent VIR image-guided G to GJ conversion last summer, 11/2022. ?? Pt presented to [facility] for GJ replacement from OSH after presenting with clogged GJ, OSH unable to replace GJ told he would need to go to [facility]. ?? VIR consulted for evaluation of gastrojejunostomy exchange. Past Medical History: Diagnosis Date ??? Cerebrovascular disease ??? HTN (hypertension) ??? Seizure (HCC) Past Surgical History: Procedure Laterality Date ??? ENDOSCOPY, UPPER N/A 03/25/2022 N/A; ESOPHAGOGASTRODUODENOSCOPY (EGD) DIAGNOSTIC with PEG Placement ??? ENT SURGERY N/A 07/15/2022 N/A; TRANSCERVICAL ZENKERS DIVERTICULECTOMY, OPEN TRACHEOSTOMY ??? 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 SINUS SURGERY N/A 11/26/2022 N/A; Bilateral Nasal Endoscopy, Right polypectomy, Right Maxillary Antrostomy, Rihjy Anterior Ethmoidectomy Allergies Allergen Reactions ??? Clonazepam Psychiatric hallucinations Social History Tobacco Use ??? Smoking status: Former Packs/day: 1.00 Years: 15.00 Additional pack years: 0.00 Total pack years: 15.00 Types: Cigarettes ??? Smokeless tobacco: Never Substance Use Topics ??? Alcohol use: No Comment: last drink 2015 No family history on file. Pertinent aspects of the patient's past medical, surgical, family, and social history are mentionedin the HPI above. Remaining PSFH was also reviewed and is not pertinent to the presenting problem. ROS: ROS unable to be performed d/t patient status. Medications: Scheduled: ??? 0.9% NaCl 3 mL Intracatheter q8h ??? artificial tears Each Eye q8h ??? aspirin 81 mg Enteral Tube QDAY ??? atorvastatin 40 mg Enteral Tube AT BEDTIME ??? cloBAZam 10 mg Enteral Tube BID ??? [START ON 09/08/2023] enoxaparin 40 mg Subcutaneous QDAY ??? famotidine 20 mg Enteral Tube BID ??? folic acid 1 mg Enteral Tube QDAY ??? guaiFENesin 15 mL Enteral Tube Every 6 Hours (03,09,15,21) ??? lacosamide 200 mg Oral BID ??? levETIRAcetam 2,000 mg Enteral Tube BID ??? metoprolol tartrate IR 25 mg Enteral Tube BID ??? polyethylene glycol 3350 17 g Enteral Tube BID ??? sennosides 8.6 mg Enteral Tube QDAY ??? thiamine 100 mg Enteral Tube QDAY ??? valproic acid 1,000 mg Per G Tube q6h PRN: ??? SALINE LOCK, INSERT AND MAINTAIN AND 0.9% NaCl AND 0.9% NaCl ??? acetaminophen ??? albuterol-ipratropium ??? bisacodyl ??? calcium carbonate (500 mg elemental Ca/5 mL) Infusions: Objective: Physical examination: BP 160/76 Pulse 67 Temp 96.6 ??F (35.9 ??C) Resp 18 Ht 1.829 m (6') Wt 80.3 kg (177 lb) SpO2 97% Estimated body mass index is 24.01 kg/m?? as calculated from the following: Height as of this encounter: 1.829 m (6'). Weight as of this encounter: 80.3 kg (177 lb). General: NAD Eyes: anicteric, no lid lag ENT: atraumatic, MMM, +Trach collar Neck: supple, trachea midline Lungs: normal respiratory effort, no accessory muscle use to trach collar Cardiovascular: Regular rate Abdomen: soft, nondistended, gastrostomy tube present--bumper is flush to skin, no evidence of leaking around site Extremities: warm, no pitting edema Psychiatric: Awake Laboratory findings: Recent Labs Component Name 09/06/23171506/28/23 0143 06/27/23 0156 03/09/22 0135 03/08/22 1455 WBC 6.8 7.7 7.8 - 20.8* HGB 11.9* 12.5* 12.5* - 14.3 HCT 36.0* 37.6* 38.5* - 42.9 PLTCOUNT 154 246 230 - 211 PLATELET - - - - Occasional* - = values in this interval not displayed. Recent Labs Component Name 09/06/23171506/09/23 1314 02/24/23 1032 INR 1.4 1.1 1.1 Recent Labs Component Name 09/07/23 0457 09/06/23171506/28/23 0143 NA 144 142 136 GLUCOSE 79 84 102 CREATININE 0.56* 0.62* 0.50* EGFR >90 >90 >90 Recent Labs Component Name 09/06/23171506/28/23 0143 06/27/23 0156 ALB 2.8* 2.8* 2.7* TBILI 0.4 0.3 0.2 ALT 15 26 21 AST 21 27 21 ALKPHOS 83 108 103 Imaging: Relevant imaging studies were personally reviewed by myself and the IR attending, Jyothi. No results found. Recommendations: 63 year old male with above medical hx stated in HPI referred to VIR for g to GJ conversion. Pt with a clogged GJ tube at OSH previously, unable to replace GJ and had a temporary gastrostomy tube placed, told he would have to have replaced at [facility]. Pertinent labs and relevant imaging studies were reviewed in detail and discussed by VIR staff. Risks, benefits, and alternatives of the procedure were discussed in detail. Risks include but are not limited to infection, bleeding, and injury to surrounding structures. Additional risks include: malposition. The following physicians are qualified to perform the procedure and include: Dr. Arvizu, Stanley, Fito Cullen, Jyothi, Shun, Serban, Sherwani, Carlos, Ramirez. 1. Written informed consent will be obtained prior to the procedure. 2. Continue to keep patient NPO for the procedure. 3. Hold all anticoagulants. 4. Plan for VIR image-guided gastrostomy tube to gastrojejunostomy tube conversion as schedule allows. The IR attending, Dr. Roe, is in agreement with the above recommendations. Gaurav Avila PA-C Interventional Radiology [phone] Associated attestation - Juan Diego Roe MD - 09/07/2023 12:52 PM CDT Attending Physician Attestation: Date of Service: 09/07/23 For this patient encounter, I have reviewed the PA's note. I have personally reviewed the patient'slabs, imaging, medications, and allergies. I agree with the history, physical exam findings, assessment, and plan. Juan Diego Roe MD Location Analyst Vascular & Interventional Radiology 09/07/2023 12:52 PM documented in this encounter OR Notes * Brief Op Note - Mariano Cullen MD - 09/09/2023 4:12 PM CDT Vascular & Interventional Radiology Brief Post-Procedure Note Patient: Bi Tabor Attending: Mariano Cullen MD Tailing Hand: Joe Leyva MS4 Diagnosis/Indication: 63 y/o M referred to IR for G to GJ conversion. Pt with a clogged GJ tube at OSH previously, unable to replace GJ and had a temporary gastrostomy tube placed, told he would haveto have replaced at [facility]. Procedure: G to GJ tube Conversion Findings: We advanced a KMR and Glidewire advantage through the existing tube. The tube was then removed and new 18 Fr x 45 cm G-J tube was advanced over the wire with fluoroscopic guidance. The retention balloon was insufflated with saline (6ml). Contrast injection confirmed proper positioning with the gastric and jejunal lumens. Anesthesia: none Additional medications given: None Estimated blood loss: Minimal Immediate complications: None Time out and final pre-procedure assessment completed immediately prior to start of procedure. Intra-procedure orders and medication record reviewed. Medications and doses administered by staff as verbally ordered. See detailed procedure note with images in PACS. documented in this encounter ED Notes * Nohemi Olvera RN - 09/08/2023 6:14 PM CDT Report called to 8S RN. * Nohemi Olvera RN - 09/08/2023 4:05 PM CDT Pt's condom cath dislodged and linen's wet with urine. Pt cleaned and fresh linens placed on patient's bed. New gown placed on patient. Condom cath replaced. Pt turned onto L side with increased comfort. Pt deep suctioned by this RN c clear secretions removed. * Nohemi Olvera RN - 09/08/2023 12:34 PM CDT Pt rolled onto R side c wedge. Pt endorses increased comfort. MD team at bedside. RT contacted to deep suction patient. * Nohemi Olvera RN - 09/08/2023 9:36 AM CDT Pt rolled onto L side c wedge. Meds given per JUL. Trach site cleaned. Bed low and locked, call light within reach and use reinforced, vital sign monitoring intact. * Vicky Jenkins RN - 09/07/2023 9:04 PM CDT Perinatal Tech B notified of pt HR and medications. Per Perinatal Tech she will look in pt chart and call me back to decide if dose should be held or not. * Vicky Jenkins RN - 09/07/2023 8:53 PM CDT Perinatal Tech B paged about pt metoprolol dose and HR in the 50s. * Vicky Jenkins RN - 09/07/2023 8:33 PM CDT RT suctioning pt. * Elmo Medeiros MD - 09/06/2023 10:05 PM CDT ASSUMED CARE NOTE Patient signed out to me by Dr. Gan at 10:00 PM. Bi Tabor is a 63 year old male is being evaluated for a clogged G-tube. Patient is nonverbal atbaseline. Patient has a history of chronic respiratory failure s/p tracheostomy, multiple CVAs/vascular dementia, epilepsy, hx MDRO aspiration PNA, PAD s/p L AKA, HTN and HLD. Labs are unremarkable. At this time the patient's condition is Stable. Plan is admit to medicine, pending bed availability. Vitals: 09/07/23 0030 09/07/23 0130 09/07/23 0230 09/07/23 0300 BP: 165/83 151/89 135/75 148/81 Pulse: 70 75 56 72 Resp: 18 Temp: SpO2: 94% 94% 100% 98% Weight: Height: ED Course 10:20 PM Reassessed the patient. Patient is resting. VSS. 11:51 PM UA is unremarkable. 1:05 AM At this time, patient's care has been taken over by medicine. Clinical Impression: 1. Dehydration 2. Encounter for feeding tube placement 3. Anemia, unspecified type 4. Hypertension, unspecified type 5. Gastrostomy tube dependent (HCC) Disposition: Admit to medicine. By signing my name below, I, Shakila Panda, attest that this documentation has been prepared under the direction and in the presence of Dr. Medeiros. Signed: Laisha Sanchez. I, Dr. Medeiros, personally performed the services described in this documentation. All medical record entries made by the gurjitibzion were at my direction and in my presence. I have reviewed the chart and agree that the record reflects my personal performance and is accurate and complete. Electronically signed: Dr. Medeiros Date: 09/08/23 Time: 2:14 AM * Quan Gan MD - 09/06/2023 3:39 PM CDT Emergency Medicine Attending Provider Note Chief Complaint Patient presents with ??? FEEDING TUBE PROBLEM BIBEMS from [facility] for evaluation of clogged G-tube. Pt is at normal mentation status, trached with O2 and VSS. Resident Attestation: Patient seen and evaluated with the resident(s), Dr Rbuio, who also contributed to this note. I have performed an independent history and physical examination and discussed the patient's management with the resident. I confirm the residents findings, assessment as documented in their plan of care/note, except whererevised on this note. HISTORY History obtained from: patient, EMS 63 year old male with hx as below including epilepsy, chronic respiratory failure s/p trach and PEGtube placement, HTN, HLD, PAD s/p left AKA, CVA, and vascular dementia, presents to ED for G-tube issue. Pt BIBEMS from [facility] for reported G-tube obstruction. Pt reportedly has a POA who requested pt be sent to ED for evaluation. EMS reports VSS en route. Pt unable to provide furtherhistory d/t nonverbal status. HPI limited 2/2 nonverbal status Past Medical History: Diagnosis Date ??? Cerebrovascular disease ??? HTN (hypertension) ??? Seizure (HCC) Past Surgical History: Procedure Laterality Date ??? ENDOSCOPY, UPPER N/A 03/25/2022 N/A; ESOPHAGOGASTRODUODENOSCOPY (EGD) DIAGNOSTIC with PEG Placement ??? ENT SURGERY N/A 07/15/2022 N/A; TRANSCERVICAL ZENKERS DIVERTICULECTOMY, OPEN TRACHEOSTOMY ??? 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 SINUS SURGERY N/A 11/26/2022 N/A; Bilateral Nasal Endoscopy, Right polypectomy, Right Maxillary Antrostomy, Rihjy Anterior Ethmoidectomy No family history on file. Social History Socioeconomic History ??? Marital status: [...] No Stress: No Stress Concern Present (06/19/2023) [employer] - Occupational Stress Questionnaire ??? Feeling of Stress : Not at all Housing Stability: Low Risk (06/19/2023) Housing Stability Vital Sign ??? Unable to Pay for Housing in the Last Year: No ??? Number of Places Lived in the Last Year: 1 ??? Unstable Housing in the Last Year: No ROS - See HPI. PHYSICAL EXAM BP 145/73 Pulse 78 Temp 96.6 ??F (35.9 ??C) Resp 16 Ht 1.829 m (6') Wt 80.3 kg (177 lb) SpO2 100% Physical Exam Vitals and nursing note reviewed. Exam conducted with a onsite case manager present. Constitutional: General: He is not in acute distress. Appearance: He is well-developed. He is not toxic-appearing or diaphoretic. HENT: Head: Normocephalic and atraumatic. Nose: Nose normal. Mouth/Throat: Mouth: Mucous membranes are moist. Eyes: Extraocular Movements: Extraocular movements intact. Pupils: Pupils are equal, round, and reactive to light. Neck: Comments: Trach in place Cardiovascular: Rate and Rhythm: Normal rate and regular rhythm. Pulses: Normal pulses. Heart sounds: Normal heart sounds. No murmur heard. Pulmonary: Effort: Pulmonary effort is normal. No respiratory distress. Breath sounds: Normal breath sounds. Abdominal: General: Abdomen is flat. Bowel sounds are normal. There is distension. Palpations: Abdomen is soft. There is no splenomegaly or mass. Tenderness: There is no abdominal tenderness. There is no guarding or rebound. Negative signs include Dougherty's sign, Rovsing's sign and McBurney's sign. Comments: GJ tube site appears CDI; non-erythematous Musculoskeletal: General: No swelling or deformity. Normal range of motion. Cervical back: Normal range of motion and neck supple. Right lower leg: No edema. Comments: L AKA Skin: General: Skin is warm and dry. Capillary Refill: Capillary refill takes less than 2 seconds. Findings: No rash. Neurological: Mental Status: He is alert. Mental status is at baseline. Comments: Upper extremity contractures. Follows simple commands. Nonverbal. MEDICAL DECISION MAKING Problem List: hx PEG tube placement, reported tube malfunction Impression: 63 year old male with above hx including G-J tube placement BIBEMS for reported tube malfunction DDx: G-J tube malfunction vs bowel obstruction vs other Plan: attempt to flush PEG tube, contact patient's POA for further history RESULTS Labs Reviewed CBC W AUTO DIFFERENTIAL - Abnormal; Notable for the following components: Result Value RBC Count 3.77 (*) Hemoglobin 11.9 (*) Hematocrit 36.0 (*) Eosinophil % 8.8 (*) All other components within normal limits COMPREHENSIVE METABOLIC PANEL - Abnormal; Notable for the following components: Creatinine 0.62 (*) Albumin 2.8 (*) BUN/Creatinine Ratio 31 (*) Albumin/Globulin Ratio 0.6 (*) All other components within normal limits PT-INR [facility] - Abnormal; Notable for the following components: PT 16.4 (*) All other components within normal limits MAGNESIUM BLOOD - Normal URINALYSIS W/MICROSCOPIC REFLEX TO CULTURE TYPE + SCREEN PANEL No orders to display INTERVENTIONS: Medications 0.9% NaCl injection 3 mL (has no administration in time range) And 0.9% NaCl injection 1-10 mL (has no administration in time range) 0.9% NaCl IV bolus (1,000 mL Intravenous $ New Bag/Syringe 09/06/23 6320) Procedures DATA INTERPRETATION Patient seen and evaluated, available studies reviewed I personally interpreted the following labs: Mag WNL. INR WNL. CMP values appear grossly unremarkable. CBC remarkable for mild anemia; no indication for transfusion. ED COURSE 1540- Nursing able to flush patient's tube without issue. G-J tube appears to be functioning appropriately. Pt also note to have large BM just after ED arrival. Low concern for bowel obstruction or tube malfunction. Spoke with patient's facility, who state patient's POA recommended he be taken to ED to have his G- tube changed to a G-J tube for improved nutrition. Will contact POA to obtain collateral. 1600- Spoke with patient's POA, Adriane Hilliard (sister; [phone]) who states pt had a G-J tube malfunction during an admission at [facility] last month, therefore undergoing temporary G-tube placement. States she was told to present to [facility] for GJ tube replacement. Will page medicine for admission for GJ tube replacement after obtaining basic lab work. 1919- Labs grossly unremarkable, will page medicine for admission 193- Med admissions refusing to accept pt at this time due to the non-emergent nature of proposed procedure. Will contact POA and discuss outpatient IR options. 1944- Spoke with POA who is in agreement with getting G-J replaced as outpatient. Request communication be sent with patient on discharge for them to schedule. Interventional radiology referral sent.Communication in patient's chart made to make nursing aware of this. After re-examining the patient for discharge, patient has had minimal urine output and appears dry,also retaining urine. Will admit to dehydration and urinary retention. I personally discussed this case with the following Physicians/consultants: N/A Medications given in ED: No - see MAR Medications prescribed: No Revised home medications: No Social determinants of health: Yes Social Determinants of Health Tobacco Use: Medium Risk (06/09/2023) Patient History ??? Smoking Tobacco Use: Former ??? Smokeless Tobacco Use: Never ??? Passive Exposure: Not on file Alcohol Use: Not At Risk (06/19/2023) AUDIT-C ??? Frequency of Alcohol Consumption: Never ??? Average Number of Drinks: Patient does not drink ??? Frequency of Binge Drinking: Never Financial Resource Strain: Low Risk (06/19/2023) Overall [...] No Stress: No Stress Concern Present (06/19/2023) [employer] - Occupational Stress Questionnaire ??? Feeling of Stress : Not at all Depression: Not on file Housing Stability: Low Risk (06/19/2023) Housing Stability Vital Sign ??? Unable to Pay for Housing in the Last Year: No ??? Number of Places Lived in the Last Year: 1 ??? Unstable Housing in the Last Year: No Amount and/or Complexity of Data Reviewed medical complexity: medical complexity, Triage notes and available nursing notes reviewed , Clinical lab tests: ordered and reviewed and Discuss the patient with other providers: yes ?? Shared decision making: Due to their medical condition, this patient is unable or unwilling to participate in shared decision making. Critical Care Time: N/A ED FINAL DIAGNOSIS 1. Dehydration 2. Encounter for feeding tube placement 3. Anemia, unspecified type 4. Hypertension, unspecified type 5. Gastrostomy tube dependent (HCC) Please see resident note (if present) for further details. DISPOSITION Discharge with referral to interventional radiology By signing my name below, IOdin, attest that this documentation has been prepared under the direction and in the presence of Dr. Gan. Signed: Laisha Thomas. By signing my name below, IDae, attest that this documentation has been prepared underthe direction and in the presence of Dr. Gan. Signed: Laisha Kwok. I, Dr. Gan, personally performed the services described in this documentation. All medical record entries made by the scribe were at my direction and in my presence. I have reviewed the chart andagree that the record reflects my personal performance and is accurate and complete. Electronically signed: Dr. Gan. Quan Gan MD Emergency Medicine * Sharla Arzate RN - 09/06/2023 2:18 PM CDT Pt has large bowel movement, water consistent with few solid stools * Clover Villegas RN - 09/06/2023 12:50 PM CDT BIBEMS from [facility] for evaluation of clogged G-tube. Pt is at normal mentation status, trached with O2 and VSS. Past Medical History: Diagnosis Date ??? Cerebrovascular disease ??? HTN (hypertension) ??? Seizure (HCC) documented in this encounter Plan of Treatment Upcoming Encounters Date Type Department Care Team (Late st Contact Info) Description 12/05/2024 1:00 PM CDT Office Visit [facility] - Neurology [address] [place] [address], [place] [address] Sean Raymundo, [address] [place] [address] [place] [address] Scheduled Orders Name Type Priority Associated Diagnoses Orde r Schedule OXYGEN WITH TITRATION PROTOCOL (ADULT) Respiratory Care Routine ONCE for 1 Occurrences starting 09/07/2023 until 09/07/2023 Scheduled Referrals Name Type Priority Associated Diagnoses Order Schedule Referral to Interventional Radiology Outpatient Referral Routine Encounter for feeding tube placement 1 Occurrences starting 09/06/2023 until 09/05/2024 documented as of this encounter Procedures Procedure Name Priority Date/Time Associated Diagnosis Comments IR PERC G TO GJ TUBE EXCHANGE STAT 09/09/2023 4:20 PM CDT Dehydration Gastrostomy tube dependent (HCC) PTT [facility] Routine 09/09/2023 6:55 AM CDT Anemia of chronic disease CBC W/O DIFFERENTIAL Routine 09/09/2023 6:55 AM CDT Anemia of chronic disease PTT [facility] Routine 09/09/2023 4:30 AM CDT Thrombus PT-INR [facility] Routine 09/09/2023 4:30 AM CDT Thrombus BASIC METABOLIC PANEL (CALCIUM TOTAL) AM Draw 09/09/2023 4:30 AM CDT Dehydration PHOSPHORUS BLOOD Routine 09/09/2023 4:30 AM CDT Dehydration MAGNESIUM BLOOD Routine 09/09/2023 4:30 AM CDT Dehydration PTT [facility] Timed 09/08/2023 11:34 PM CDT Thrombus PTT [facility] STAT 09/08/2023 4:41 PM CDT Thrombus PT-INR [facility] STAT 09/08/2023 4:41 PM CDT Thrombus CBC W AUTO DIFFERENTIAL STAT 09/08/2023 4:41 PM CDT Thrombus BASIC METABOLIC PANEL (CALCIUM TOTAL) STAT 09/08/2023 5:15 AM CDT Dehydration PHOSPHORUS BLOOD STAT 09/08/2023 5:15 AM CDT Dehydration MAGNESIUM BLOOD STAT 09/08/2023 5:15 AM CDT Dehydration BASIC METABOLIC PANEL (CALCIUM TOTAL) STAT 09/07/2023 4:57 AM CDT Dehydration PHOSPHORUS BLOOD STAT 09/07/2023 4:57 AM CDT Dehydration MAGNESIUM BLOOD STAT 09/07/2023 4:57 AM CDT Dehydration OT EVAL AND TREAT Routine 09/07/2023 2:5 5 AM CDT PT EVAL AND TREAT Routine 09/07/2023 2:5 5 AM CDT URINALYSIS W/MICROSCOPIC REFLEX TO CULTURE STAT 09/06/2023 11:41 PM CDT PT-INR [facility] STAT 09/06/2023 5:16 PM CDT TYPE + SCREEN PANEL STAT 09/06/2023 5 :16 PM CDT CBC W AUTO DIFFERENTIAL STAT 09/06/2023 5:16 PM CDT COMPREHENSIVE METABOLIC PANEL STAT 09/06/2023 5:16 PM CDT MAGNESIUM BLOOD STAT 09/06/2023 5:16 PM CDT documented in this encounter Results * IR PERC G TO GJ TUBE EXCHANGE (09/09/2023 4:20 PM CDT) Anatomical Region Laterality Modality Abdomen X-Ray Angiograph y 09/15/2023 3:57 PM CDT Impressions 09/15/2023 4:03 PM CDT Impression: Successful conversion of the existing makeshift 18 Tanzanian JELLY Robert gastrostomy catheter for a new 18-Tanzanian x 45 cm balloon-retention gastrojejunostomy catheter under [...] he would need to go to [facility]. Quality Assurance Lab Technician: Dr. Luis Cullen, attending physician. Anesthesia: None Procedure: Exchange of the existing 18 Tanzanian JELLY gastrostomy catheter for a new 18 Tanzanian by 45 cm balloon-retention gastrojejunostomy catheter under fluoroscopic guidance. Fluoroscopic time: 2.2 minutes (10 mg) Contrast: 10 mL of Isovue-300 Procedure in detail: The procedure, risks, and possible complications were explained to the proxy in detail, and informed consent was obtained. The patient was placed supine on the procedure table. A equipment mechanic specialist film of abdomen was obtained, which showed unremarkable abdomen. Contrast was hand injected through the existing gastrostomy catheter and showed opacification of the gastric lumen. A 0.035 inch Glidewire was advanced into the stomach through the existing catheter which was subsequently removed over the wire. Using a 4 Tanzanian Kumpe catheter, the Glidewire was advanced into the jejunum under fluoroscopic guidance. The Glidewire was exchanged for a stiffer wire. A new 18 Tanzanian by 45 cm gastrojejunostomy catheter was then [...] he would need to go to [facility]. Quality Assurance Lab Technician: Dr. Luis Cullen, attending physician. Anesthesia: None Procedure: Exchange of the existing 18 Tanzanian JELLY gastrostomy catheterfor a new 18 Tanzanian by 45 cm balloon-retention gastrojejunostomy catheterunder fluoroscopic guidance. Fluoroscopic time: 2.2 minutes (10 mg) Contrast: 10 mL of Isovue-300 Procedure in detail: The procedure, risks, and possible complications were explained to the proxy in detail, and informed consent was obtained. The patient wasplaced supine on the procedure table. A equipment mechanic specialist film of abdomen was obtained,which showed unremarkable abdomen. Contrast was hand injected through the existing gastrostomy catheter and showed opacification of the gastric lumen. A 0.035 inch Glidewire was advanced into the stomach through the existing catheter which was subsequently removed over the wire. Using a 4 Tanzanian Kumpe catheter, the Glidewire was advanced into the jejunum under fluoroscopic guidance. The Glidewire was exchanged for a stiffer wire. A new 18 Tanzanian by 45 cm gastrojejunostomy catheter was then [...] the procedure well [facility]. There were no immediate complicationsassociated with the procedure. Impression: Successful conversion of the existing makeshift 18 FrenchMIC Robert gastrostomy catheter for a new 18-Tanzanian x 45 cm balloon-retention gastrojejunostomy catheter under [...] Gaurav Leroy PA-C IR ORDERABLES * (ABNORMAL) PTT [facility] (09/09/2023 6:55 AM CDT) APTT >200.0(HH ) 23.0 - 38.4 Seconds 09/09/2023 8:03 AM CDT [facility] Comment:Suggested therapeuti c range for full dose I.V. unfractionated heparin therapy for venous thromboembolism is 71 to 109 seconds. Blood BLOOD SPECIMEN / Unknown Venipuncture / Unknown 09/09/2023 6:55 AM CDT 09/09/2023 7:00 AM CDT Germaine Nails MD LAB - COAGULATION OR DERABLES [facility] [address] [place] [address], [facility] [phone] * (ABNORMAL) CBC W/O DIFFERENTIAL (09/09/2023 6:55 AM CDT) WBC 5.1 4.0 - 10.7 x10E9/L 09/09/2023 7:18 AM CDT [facility] RBC Count 3.20(L) 4.30 - 5.80 x10E12/L 09/09/2023 7:18 AM CDT [facility] Hemoglobin 10.5(L) 13.3 - 17.5 g/dL 09/09/2023 7:18 AM CDT [facility] Hematocrit 30.2(L) 38.7 - 51.1 % 09/09/2023 7:18 AM CDT [facility] MCV 94.4 80.0 - 98.0 fL 09/09/2023 7:18 AM [facility] MCH 32.8 26.7 - 33.6 pg 09/09/2023 7:18 AM [facility] MCHC 34.8 31.7 - 36.3 g/dL 09/09/2023 7:18 AM [facility] RDW-CV 13.0 11.3 - 14.8 % 09/09/2023 7:18 AM [facility] Platelet Count 178 150 - 420 x10E9/L 09/09/2023 7:18 AM [facility] MPV 12.9(H) 7.8 - 11.4 fL 09/09/2023 7:18 AM [facility] Blood BLOOD SPECIMEN / Unknown Venipuncture / Unknown 09/09/2023 6:55 AM CDT 09/09/2023 7:06 AM CDT Germaine Nails MD LAB - HEMATOLOGY ORD ERABLES Performing Organization Address City/[facility]/ZIP Co de Phone Number [address] [address], [place] [phone] * (ABNORMAL) PTT [facility] (09/09/2023 4:30 AM CDT) APTT >200.0( ) 23.0 - 38.4 Seconds 09/09/2023 5:23 AM T [facility] Comment:Suggested therapeuti c range for full dose I.V. unfractionated heparin therapy for venous thromboembolism is 71 to 109 seconds. Blood BLOOD SPECIMEN / Unknown Venipuncture / Unknown 09/09/2023 4:30 AM CDT 09/09/2023 4:35 AM CDT Germaine Nails MD LAB - COAGULATION OR DERABLES Performing Organization Address City/[facility]/ZIP Co de Phone Number [facility] [address] [place] [address], [place] [phone] * (ABNORMAL) PT-INR [facility] (09/09/2023 4:30 AM CDT) PT 17.6(H) 12.1 - 14.8 Seconds 09/09/2023 5:23 AM CDT [facility] INR 1.5 See Comment 09/09/2023 5:23 AM CDT [facility] Comment:The suggested therap eutic range for standard coumadin (warfarin) therapy is an INR of 2.0-3.0. For high-risk patients (Mechanical Mitral Valve Prosthesis, etc.), the suggested prophylactic therapeutic range is an INR of 2.5-3.5. Blood BLOOD SPECIMEN / Unknown Venipuncture / Unknown 09/09/2023 4:30 AM CDT 09/09/2023 4:35 AM CDT Germaine Nails MD LAB - COAGULATION OR DERABLES Performing Organization Address City/[facility]/ZIP Co de Phone Number [address] [address], [facility] [phone] * (ABNORMAL) PHOSPHORUS BLOOD (09/09/2023 4:30 AM CDT) Phosphorus 2.7(L) 2.8 - 5.1 mg/dL 09/09/2023 5:08 AM CDT [facility] Blood BLOOD SPECIMEN / Unknown Venipuncture / Unknown 09/09/2023 4:30 AM CDT 09/09/2023 4:39 AM CDT Quan Gan MD LAB - CHEMISTRY MARSHAL MEDEROS [address] [address], [facility] [phone] * (ABNORMAL) MAGNESIUM BLOOD (09/09/2023 4:30 AM CDT) Magnesium 1.5(L) 1.6 - 2.6 mg/dL 09/09/2023 5:08 AM CDT [facility] Blood BLOOD SPECIMEN / Unknown Venipuncture / Unknown 09/09/2023 4:30 AM CDT 09/09/2023 4:39 AM CDT Quan Gan MD LAB - CHEMISTRY MARSHAL MEDEROS [facility] Organization Address City/State/ZIP Co de Phone Number [facility] [address] [place] [address], [facility] [phone] * (ABNORMAL) BASIC METABOLIC PANEL (CALCIUM TOTAL) (09/09/2023 4:30 AM CDT) BUN <5(L) 7 - 26 mg/dL 09/09/2023 5:08 AM [facility] Creatinine 0.46(L) 0.71 - 1.16 mg/dL 09/09/2023 5:08 AM [facility] Sodium 142 136 - 145 mmol/L 09/09/2023 5:08 AM [facility] Potassium 3.1(L) 3.5 - 4.5 mmol/L 09/09/2023 5:08 AM [facility] Chloride 110(H) 98 - 107 mmol/L 09/09/2023 5:08 AM [facility] CO2 24 22 - 29 mmol/L 09/09/2023 5:08 AM [facility] Glucose 88 70 - 115 mg/dL 09/09/2023 5:08 AM [facility] Calcium 8.8 8.4 - 10.2 mg/dL 09/09/2023 5:08 AM [facility] Anion Gap 8 6 - 16 09/09/2023 5:08 AM [facility] BUN/Creatinine Ratio <11 7 - 23 09/09/2023 5:08 AM [facility] Osmolality Calculated <291 275 - 295 mOsm/kg 09/09/2023 5:08 AM [facility] eGFR by CKD-EPI >90 >=90 mL/min/1.7 3 m2 09/09/2023 5:08 AM [facility] Blood BLOOD SPECIMEN / Unknown Venipuncture / Unknown 09/09/2023 4:30 AM CDT 09/09/2023 4:39 AM CDT Quan Gan MD LAB - CHEMISTRY MARSHAL MEDEROS Performing Organization Address [facility]/ZIP Co de Phone Number [address] [address], [facility] [phone] * (ABNORMAL) PTT [facility] (09/08/2023 11:34 PM CDT) APTT >200.0(HH ) 23.0 - 38.4 Seconds 09/09/2023 12:37 AM CDT [facility] Comment:Suggested therapeuti c range for full dose I.V. unfractionated heparin therapy for venous thromboembolism is 71 to 109 seconds. Blood BLOOD SPECIMEN / Unknown Venipuncture / Unknown 09/08/2023 11:34 PM CDT 09/08/2023 11:48 PM CDT Germaine Nails MD LAB - COAGULATION OR DERABLES Performing Organization Address [facility] Co de Phone Number [address] [address], [facility] [phone] * PTT [facility] (09/08/2023 4:41 PM CDT) APTT 36.2 23.0 - 38.4 Seconds 09/08/2023 5:26 PM CDT [facility] Comment:Suggested therapeuti c range for full dose I.V. unfractionated heparin therapy for venous thromboembolism is 71 to 109 seconds. Blood BLOOD SPECIMEN / Unknown Venipuncture / Unknown 09/08/2023 4:41 PM CDT 09/08/2023 5:03 PM CDT Germaine Nails MD LAB - COAGULATION OR DERABLES Performing Organization Address [facility] Co de Phone Number [address] [address], [facility] [phone] * (ABNORMAL) PT-INR [facility] (09/08/2023 4:41 PM CDT) PT 15.2(H) 12.1 - 14.8 Seconds 09/08/2023 5:26 PM [facility] INR 1.2 See Comment 09/08/2023 5:26 PM [facility] Comment:The suggested therap eutic range for standard coumadin (warfarin) therapy is an INR of 2.0-3.0. For high-risk patients (Mechanical Mitral Valve Prosthesis, etc.), the suggested prophylactic therapeutic range is an INR of 2.5-3.5. Blood BLOOD SPECIMEN / Unknown Venipuncture / Unknown 09/08/2023 4:41 PM CDT 09/08/2023 5:03 PM CDT Germaine Nails MD LAB - COAGULATION OR DERABLES [address] [address], [facility] [phone] * (ABNORMAL) CBC W AUTO DIFFERENTIAL (09/08/2023 4:41 PM CDT) WBC 5.6 4.0 - 10.7 x10E9/L 09/08/2023 5:09 PM [facility] RBC Count 3.86(L) 4.30 - 5.80 x10E12/L 09/08/2023 5:09 PM [facility] Hemoglobin 12.3(L) 13.3 - 17.5 g/dL 09/08/2023 5:09 PM [facility] Hematocrit 36.4(L) 38.7 - 51.1 % 09/08/2023 5:09 PM [facility] MCV 94.3 80.0 - 98.0 fL 09/08/2023 5:09 PM [facility] MCH 31.9 26.7 - 33.6 pg 09/08/2023 5:09 PM [facility] MCHC 33.8 31.7 - 36.3 g/dL 09/08/2023 5:09 PM [facility] RDW-CV 13.2 11.3 - 14.8 % 09/08/2023 5:09 PM [facility] Platelet Count 197 150 - 420 x10E9/L 09/08/2023 5:09 PM [facility] MPV 12.8(H) 7.8 - 11.4 fL 09/08/2023 5:09 PM [facility] Neutrophil % 49.5 41.0 - 74.0 % 09/08/2023 5:09 PM [facility] Lymphocyte % 36.6 17.0 - 47.0 % 09/08/2023 5:09 PM [facility] Monocyte % 7.8 3.0 - 11.0 % 09/08/2023 5:09 PM [facility] Eosinophil % 5.7 0.0 - 7.0 % 09/08/2023 5:09 PM [facility] Basophil % 0.2 0.0 - 1.6 % 09/08/2023 5:09 PM [facility] Immature Granulocytes % 0.2 0.0 - 1.0 % 09/08/2023 5:09 PM [facility] Neutrophil Absolute 2.79 1.60 - 7.50 x10E9/L 09/08/2023 5:09 PM [facility] Lymphocyte Absolute 2.06 1.00 - 4.40 x10E9/L 09/08/2023 5:09 PM [facility] Monocyte Absolute 0.44 0.15 - 1.00 x10E9/L 09/08/2023 5:09 PM [facility] Eosinophil Absolute 0.32 0.00 - 0.60 x10E9/L 09/08/2023 5:09 PM [facility] Basophil Absolute 0.01 0.00 - 0.13 x10E9/L 09/08/2023 5:09 PM [facility] Blood BLOOD SPECIMEN / Unknown Venipuncture / Unknown 09/08/2023 4:41 PM CDT 09/08/2023 5:03 PM T Germaine Nails MD LAB - HEMATOLOGY ORD ERABLES [facility] [address] [place] [address], [facility] [phone] * (ABNORMAL) PHOSPHORUS BLOOD (09/08/2023 5:15 AM CDT) Pathologist [facility] Phosphorus 2.4(L) 2.8 - 5.1 mg/dL 09/08/2023 6:00 AM CDT [facility] Blood BLOOD SPECIMEN / Unknown Venipuncture / Unknown 09/08/2023 5:15 AM CDT 09/08/2023 5:50 AM CDT Quan Gan MD LAB - CHEMISTRY MARSHAL MEDERSO [address] [address], [place] [phone] * MAGNESIUM BLOOD (09/08/2023 5:15 AM CDT) [facility] Magnesium 1.6 1.6 - 2.6 mg/dL 09/08/2023 6:00 AM T [facility] Blood BLOOD SPECIMEN / Unknown Venipuncture / Unknown 09/08/2023 5:15 AM CDT 09/08/2023 5:50 AM CDT Quan Gan MD LAB - CHEMISTRY MARSHAL MEDEROS [address] [address], [place] [phone] * (ABNORMAL) BASIC METABOLIC PANEL (CALCIUM TOTAL) (09/08/2023 5:15 AM CDT) [facility] BUN 7 7 - 26 mg/dL 09/08/2023 6:00 AM [facility] Creatinine 0.47(L) 0.71 - 1.16 mg/dL 09/08/2023 6:00 AM [facility] Sodium 143 136 - 145 mmol/L 09/08/2023 6:00 AM T [facility] Potassium 3.5 3.5 - 4.5 mmol/L 09/08/2023 6:00 AM [facility] Chloride 109(H) 98 - 107 mmol/L 09/08/2023 6:00 AM [facility] CO2 23 22 - 29 mmol/L 09/08/2023 6:00 AM [facility] Glucose 88 70 - 115 mg/dL 09/08/2023 6:00 AM [facility] Calcium 9.4 8.4 - 10.2 mg/dL 09/08/2023 6:00 AM [facility] Anion Gap 11 6 - 16 09/08/2023 6:00 AM [facility] BUN/Creatinine Ratio 15 7 - 23 09/08/2023 6:00 AM [facility] Osmolality Calculated 293 275 - 295 mOsm/kg 09/08/2023 6:00 AM [facility] eGFR by CKD-EPI >90 >=90 mL/min/1.7 3 m2 09/08/2023 6:00 AM [facility] Blood BLOOD SPECIMEN / Unknown Venipuncture / Unknown 09/08/2023 5:15 AM CDT 09/08/2023 5:50 AM CDT Quan Gan MD LAB - CHEMISTRY ORDZion MEDEROS [address] [address], [facility] [phone] * (ABNORMAL) PHOSPHORUS BLOOD (09/07/2023 4:57 AM CDT) Phosphorus 2.6(L) 2.8 - 5.1 mg/dL 09/07/2023 5:30 AM [facility] Blood BLOOD SPECIMEN / Unknown Venipuncture / Unknown 09/07/2023 4:57 AM CDT 09/07/2023 5:01 AM CDT Quan Gan MD LAB - CHEMISTRY ORDZion MEDEROS [address] [address], [facility] [phone] * MAGNESIUM BLOOD (09/07/2023 4:57 AM CDT) Magnesium 1.8 1.6 - 2.6 mg/dL 09/07/2023 5:30 AM [facility] Blood BLOOD SPECIMEN / Unknown Venipuncture / Unknown 09/07/2023 4:57 AM CDT 09/07/2023 5:01 AM CDT Quan Gan MD LAB - CHEMISTRY MARSHAL MEDEROS [facility] Organization Address City/State/ZIP Co de Phone Number [facility] [address] [place] [address], [facility] [phone] * (ABNORMAL) BASIC METABOLIC PANEL (CALCIUM TOTAL) (09/07/2023 4:57 AM CDT) BUN 12 7 - 26 mg/dL 09/07/2023 5:30 AM [facility] Creatinine 0.56(L) 0.71 - 1.16 mg/dL 09/07/2023 5:30 AM [facility] Sodium 144 136 - 145 mmol/L 09/07/2023 5:30 AM [facility] Potassium 3.8 3.5 - 4.5 mmol/L 09/07/2023 5:30 AM [facility] Chloride 107 98 - 107 mmol/L 09/07/2023 5:30 AM [facility] CO2 28 22 - 29 mmol/L 09/07/2023 5:30 AM [facility] Glucose 79 70 - 115 mg/dL 09/07/2023 5:30 AM [facility] Calcium 8.7 8.4 - 10.2 mg/dL 09/07/2023 5:30 AM [facility] Anion Gap 9 6 - 16 09/07/2023 5:30 AM [facility] BUN/Creatinine Ratio 21 7 - 23 09/07/2023 5:30 AM [facility] Osmolality Calculated 297(H) 275 - 295 mOsm/kg 09/07/2023 5:30 AM [facility] eGFR by CKD-EPI >90 >=90 mL/min/1.7 3 m2 09/07/2023 5:30 AM [facility] Blood BLOOD SPECIMEN / Unknown Venipuncture / Unknown 09/07/2023 4:57 AM CDT 09/07/2023 5:01 AM CDT Quan Gan MD LAB - CHEMISTRY MARSHAL MEDEROS [facility] [address] [place] [address], [facility] [phone] * (ABNORMAL) URINALYSIS W/MICROSCOPIC REFLEX TO CULTURE (09/06/2023 11:41 PM CDT) Color UA Yellow Straw, Yellow 09/06/2023 11:52 PM T [facility] Clarity UA Clear Clear 09/06/2023 11:52 PM [facility] Specific [place] UA 1.009 1.005 - 1.030 09/06/2023 11:52 PM [facility] pH UA 6.0 5.0 - 8.0 pH [...] PM CDT 09/06/2023 11:45 PM CDT Narrative [facility] - 09/06/2023 11:52 PM CDT Culture Not Indicated Quan Gan MD LAB - URINALYSIS ORD ERABLES [address] [address], [facility] [phone] * TYPE + SCREEN PANEL (09/06/2023 5:16 PM CDT) Antibody Screen NEG 6:05 PM CDT [facility] BLOOD BANK LAB ABO Rh O POS 09/06/2023 6:05 PM CDT [facility] BLOOD [facility] LAB Blood Bank BLOOD SPECIMEN / Unknown Venipuncture / Unknown 09/06/2023 5:16 PM CDT 09/06/2023 5:29 PM CDT Quan Gan MD LAB - BLOOD BANK ORD ERABLES Performing Organization Address City/[facility]/ZIP Co de Phone Number [facility] B[facility]OD [facility] LAB [address] [place] [address], [facility] [phone] * (ABNORMAL) PT-INR [facility] (09/06/2023 5:16 PM CDT) PT 16.4(H) 12.1 - 14.8 Seconds 09/06/2023 5:59 PM CDT [facility] INR 1.4 See Comment 09/06/2023 5:59 PM CDT [facility] Comment:The suggested therap eutic range for standard coumadin (warfarin) therapy is an INR of 2.0-3.0. For high-risk patients (Mechanical Mitral Valve Prosthesis, etc.), the suggested prophylactic therapeutic range is an INR of 2.5-3.5. Blood BLOOD SPECIMEN / Unknown Venipuncture / Unknown 09/06/2023 5:16 PM CDT 09/06/2023 5:33 PM CDT Quan Gan MD LAB - COAGULATION OR DERABLES [facility] [address] [place] [address], [place] [phone] * MAGNESIUM BLOOD (09/06/2023 5:16 PM CDT) Magnesium 2.0 1.6 - 2.6 mg/dL 09/06/2023 6:03 PM [facility] Blood BLOOD SPECIMEN / Unknown Venipuncture / Unknown 09/06/2023 5:16 PM CDT 09/06/2023 5:33 PM CDT Quan Gan MD LAB - CHEMISTRY ORDE RABLES Performing Organization Address City/[facility]/ZIP Co de Phone Number [facility] [address] [place] [address], [place] [phone] * (ABNORMAL) COMPREHENSIVE METABOLIC PANEL (09/06/2023 5:16 PM CDT) BUN 19 7 - 26 mg/dL 09/06/2023 6:03 PM [facility] Creatinine 0.62(L) 0.71 - 1.16 mg/dL 09/06/2023 6:03 PM [facility] Sodium 142 136 - 145 mmol/L 09/06/2023 6:03 PM [facility] Potassium 4.2 3.5 - 4.5 mmol/L 09/06/2023 6:03 PM [facility] Chloride 104 98 - 107 mmol/L 09/06/2023 6:03 PM [facility] CO2 28 22 - 29 mmol/L 09/06/2023 6:03 PM [facility] Glucose 84 70 - 115 mg/dL 09/06/2023 6:03 PM [facility] Calcium 9.5 8.4 - 10.2 mg/dL 09/06/2023 6:03 PM [facility] Protein Total 7.3 6.0 - 8.3 g/dL 09/06/2023 6:03 PM [facility] Albumin 2.8(L) 3.4 - 5.0 g/dL 09/06/2023 6:03 PM [facility] Bilirubin Total 0.4 0.2 - 1.2 mg/dL 09/06/2023 6:03 PM [facility] Alkaline Phosphatase 83 40 - 150 U/L 09/06/2023 6:03 PM [facility] ALT 15 5 - 55 U/L 09/06/2023 6:03 PM [facility] AST 21 5 - 34 U/L 09/06/2023 6:03 PM [facility] Anion Gap 10 6 - 16 09/06/2023 6:03 PM [facility] BUN/Creatinine Ratio 31(H) 7 - 23 09/06/2023 6:03 PM [facility] Osmolality Calculated 295 275 - 295 mOsm/kg 09/06/2023 6:03 PM [facility] Albumin/Globulin Ratio 0.6(L) 1.1 - 2.3 09/06/2023 6:03 PM [facility] eGFR by CKD-EPI >90 >=90 mL/min/1.7 3 m2 09/06/2023 6:03 PM [facility] Blood BLOOD SPECIMEN / Unknown Venipuncture / Unknown 09/06/2023 5:16 PM CDT 09/06/2023 5:33 PM CDT Quan Gan MD LAB - CHEMISTRY MARSHAL MEDEROS [facility] Organization Address City/State/ZIP Co de Phone Number [facility] [address] [place] [phone] [phone] * (ABNORMAL) CBC W AUTO DIFFERENTIAL (09/06/2023 5:16 PM CDT) WBC 6.8 4.0 - 10.7 x10E9/L 09/06/2023 6:06 PM [facility] RBC Count 3.77(L) 4.30 - 5.80 x10E12/L 09/06/2023 6:06 PM [facility] Hemoglobin 11.9(L) 13.3 - 17.5 g/dL 09/06/2023 6:06 PM [facility] Hematocrit 36.0(L) 38.7 - 51.1 % 09/06/2023 6:06 PM [facility] MCV 95.5 80.0 - 98.0 fL 09/06/2023 6:06 PM [facility] MCH 31.6 26.7 - 33.6 pg 09/06/2023 6:06 PM [facility] MCHC 33.1 31.7 - 36.3 g/dL 09/06/2023 6:06 PM [facility] RDW-CV 13.2 11.3 - 14.8 % 09/06/2023 6:06 PM [facility] Platelet Count 154 150 - 420 x10E9/L 09/06/2023 6:06 PM [facility] MPV 09/06/2023 6:06 PM [facility] Comment:Unable to report Neutrophil % 57.8 41.0 - 74.0 % 09/06/2023 6:06 PM [facility] Lymphocyte % 26.3 17.0 - 47.0 % 09/06/2023 6:06 PM [facility] Monocyte % 6.9 3.0 - 11.0 % 09/06/2023 6:06 PM [facility] Eosinophil % 8.8(H) 0.0 - 7.0 % 09/06/2023 6:06 PM [facility] Basophil % 0.1 0.0 - 1.6 % 09/06/2023 6:06 PM [facility] Immature Granulocytes % 0.1 0.0 - 1.0 % 09/06/2023 6:06 PM [facility] Neutrophil Absolute 3.91 1.60 - 7.50 x10E9/L 09/06/2023 6:06 PM [facility] Lymphocyte Absolute 1.78 1.00 - 4.40 x10E9/L 09/06/2023 6:06 PM [facility] Monocyte Absolute 0.47 0.15 - 1.00 x10E9/L 09/06/2023 6:06 PM CDT [facility] Eosinophil Absolute 0.60 0.00 - 0.60 x10E9/L 09/06/2023 6:06 PM CDT [facility] Basophil Absolute 0.01 0.00 - 0.13 x10E9/L 09/06/2023 6:06 PM CDT [facility] Blood BLOOD SPECIMEN / Unknown Venipuncture / Unknown 09/06/2023 5:16 PM CDT 09/06/2023 5:33 PM CDT Quan Gan MD LAB - HEMATOLOGY ORD ERABLES [facility] [address] [place] [address], [facility] [phone] documented in this encounter Visit Diagnoses Diagnosis Dehydration- Primary Encounter for feeding tube placement Unspecified conditions influencing health status Anemia, unspecified type Hypertension, unspecified type Dehydration Gastrostomy tube dependent (HCC) Gastrostomy status Thrombus Embolism and thrombosis of unspecified site Anemia of chronic disease Anemia, unspecified type Hypertension, unspecified type Encounter for feeding tube placement Unspecified conditions influencing health status documented in this encounter Administered Medications Inactive Administered Medications - up to 3 most recent administrations Medication Order MAR Action Action Date Dose Rate Site 0.9% NaCl injection 1-10 mL 1-10 mL, Intracatheter, PRN, Other, peripheral line flush, Starting on Tue09/06/23 at 1604, Until Tue09/09/23 at 1942, Flush peripheral IV catheter with 1-10 mL of normal saline before and after medications and prn to clear blood from the line or to verify patency. 0.9% NaCl injection 3 mL 3 mL, Intracatheter, EVERY 8 HOURS, First dose on Tue09/06/23 at 1645, Until Discontinued, Flush peripheral IV catheter with 3 mL of normal saline every 8 hours. $ Given 09/09/2023 2:40 PM CDT 3 mL $ Given 09/09/2023 5:39 AM CDT 3 mL $ Given 09/08/2023 8:43 PM CDT 3 mL 0.9% NaCl IV bolus 1,000 mL, at 1,935.48 mL/hr, Administer over 31 Minutes, NOW, 1 dose, On Tue09/06/23 at 2200 $ New Bag/Syringe 09/06/2023 9:58 PM CDT 1,000 mL 1935.48 mL/hr apixaban (Eliquis) tablet 5 mg 5 mg, Enteral Tube, 2 TIMES DAILY, First dose on Tue09/07/23 at 0045, Until Discontinued $ Given 09/07/2023 1:42 AM CDT 5 mg G Tube artificial tears ophthalmic ointment Each Eye, EVERY 8 HOURS, First dose on Tue09/07/23 at 0015, Until Discontinued $ Given 09/09/2023 2:40 PM CDT $ Given 09/09/2023 5:39 AM CDT $ Given 09/08/2023 1:32 PM CDT atorvastatin (Lipitor) tablet 40 mg 40 mg, Enteral Tube, AT BEDTIME, First dose on Tue09/07/23 at 0015, Until Discontinued $ Given 09/08/2023 8:38 PM CDT 40 mg G Tub e $ Given 09/07/2023 9:26 PM CDT 40 mg G Tube $ Given 09/07/2023 1:43 AM CDT 40 mg G Tube calcium carbonate (500 mg elemental Ca/5 mL) suspension 1,000 mg, Enteral Tube, EVERY 6 HOURS PRN, Heartburn, Starting on Tue09/07/23 at 0026, Until Tue09/09/23 at 1942, Shake well before using. cloBAZam (Onfi) tablet 15 mg 15 mg, Enteral Tube, DAILY, First dose (after last modification) on Tue09/07/23 at 0900, Until Discontinued $ Given 09/09/2023 10:57 AM CDT 15 mg G Tube $ Given 09/08/2023 9:34 AM CDT 15 mg G Tube $ Given 09/07/2023 10:24 AM CDT 15 mg G Tube famotidine (Pepcid) tablet 20 mg 20 mg, Enteral Tube, 2 TIMES DAILY, First dose on Tue09/07/23 at 0015, Until Discontinued $ Given 09/09/2023 10:58 AM CDT 20 mg G Tube $ Given 09/08/2023 8:38 PM CDT 20 mg G Tube $ Given 09/08/2023 9:35 AM CDT 20 mg G Tube folic acid (Folvite) tablet 1 mg 1 mg, Enteral Tube, DAILY, First dose on Tue09/07/23 at 0900, Until Discontinued $ Given 09/09/2023 10:57 AM CDT 1 mg G Tu be $ Given 09/08/2023 9:34 AM CDT 1 mg G Tube $ Given 09/07/2023 10:24 AM CDT 1 mg G Tube guaiFENesin (Robitussin) solution 15 mL 15 mL, Enteral Tube, EVERY 6 HOURS (03,09,15,21), First dose on Tue09/07/23 at 0300, Until Discontinued $ Given 09/09/2023 2:39 PM CDT 15 mL G Tube $ Given 09/09/2023 10:57 AM CDT 15 mL G Tube $ Given 09/09/2023 3:55 AM CDT 15 mL G Tube heparin 100 units/mL bolus from bag 6,400 Units (rounded from 6,424 Units = 80 Units/kg ? 80.3 kg), Intravenous, BOLUS FROM BAG ONCE, 1 dose, On Tue09/08/23 at 1600 Bolus From Bag 09/08/2023 4:46 PM CDT 6,400 Units heparin 100 units/mL bolus from bag 0-4,800 Units (rounded from 0-4,818 Units = 0-60 Units/kg ? 80.3 kg), Intravenous, BOLUS FROM BAG PRN, heparin nomogram bolus, Starting on Tue09/08/23 at 1543, Until Tue09/09/23 at 1942 heparin 25,000 units in 250 mL (100 units/mL) in dextrose 5% 0-40 Units/kg/hr ? 80.3 kg (0-32.12 mL/hr, rounded to 0-32.1 mL/hr), Intravenous, CONTINUOUS, Starting on Tue09/08/23 at 1600, Until Tue09/09/23 at 1942, Use the heparin calculator (scroll during admin) for starting rate, boluses or titrations, and weight selection. Use $New Bag/Syringe action when hanging a new bag, no need to use the calculator. Contact provider if patient requires doses outside the prescribed range. Order timed PTT to be drawn 6 hours after infusion initiated After two consecutive aPTTs drawn 6 hours apart are therapeutic, order aPTT to be drawn the following a.m. and daily, VTE Nomogram Goal aPTT (seconds): 69-110, Does patient require INITIAL Heparin Bolus? Yes Rate Change 09/09/2023 5:37 AM CDT 12 Units/kg/hr 9.6 mL/hr $ New Bag/Syringe 09/09/2023 1:13 AM CDT 15 Units/kg/hr 12 mL/hr $ New Bag/Syringe 09/08/2023 4:45 PM CDT 18 Units/kg/hr 14 .5 mL/hr iopamidol (Isovue 300) 61 % contrast ONCE PRN, Starting on Tue09/09/23 at 1615, Until Tue09/09/23 at 1615, Intra-op $ Given 09/09/2023 4:15 PM CDT 10 mL lacosamide (Vimpat) tablet 200 mg 200 mg, Oral, 2 TIMES DAILY, First dose on Tue09/07/23 at 0015, Until Discontinued, Per G-tube Tablets should be swallowed whole with liquid; do not divide. $ Given 09/09/2023 10:58 AM CDT 200 mg $ Given 09/08/2023 8:38 PM CDT 200 mg $ Given 09/08/2023 9:34 AM CDT 200 mg levETIRAcetam (Keppra) oral solution 2,000 mg 2,000 mg, Enteral Tube, 2 TIMES DAILY, First dose on Tue09/06/23 at 2345, Until Discontinued $ Given 09/09/2023 11:04 AM CDT 2,000 mg G Tube $ Given 09/08/2023 10:45 PM CDT 2,000 mg G Tube $ Given 09/08/2023 12:39 PM CDT 2,000 mg G Tube magnesium sulfate 2 g in 50 mL bolus 2 g, at 25 mL/hr, Administer over 120 Minutes, Intravenous, ONCE, 1 dose, On Tue09/09/23 at 0615, Infuse at 1 gm/hr $ New Bag/Syringe 09/09/2023 6:45 AM CDT 2 g 25 mL/hr polyethylene glycol 3350 (Miralax) packet 17 g 17 g, Enteral Tube, 2 TIMES DAILY, First dose on Tue09/07/23 at 0900, Until Discontinued, Mix in 8 ounces of water, juice, soda, coffee or tea prior to administration $ Given 09/09/2023 10:57 AM CDT 17 g G Tube $ Given 09/08/2023 8:38 PM CDT 17 g G Tube $ Given 09/08/2023 9:36 AM CDT 17 g G Tube potassium chloride (Klor-Con) packet 40 mEq 40 mEq, Enteral Tube, ONCE, 1 dose, On Tue09/09/23 at 0615, DISSOLVE IN 120 ML OF COLD WATER OR JUICE AND DRINK SLOWLY $ Given 09/09/2023 6:45 AM CDT 40 mEq G Tube potassium phosphate 30 mmol in d5w 260 mL bolus premix 30 mmol, at 43.33 mL/hr, Administer over 6 Hours, Intravenous, ONCE, 1 dose, On Marian 09/08/23 at 0800, 3 mmol phosphate = 4.4 mEq potassium $ New Bag/Syringe 09/08/2023 12:28 PM CDT 30 mmol 43.33 mL/hr senna (Senokot) tablet 8.6 mg 8.6 mg, Enteral Tube, DAILY, First dose on Tue09/07/23 at 0900, Until Discontinued $ Given 09/09/2023 10:57 AM CDT 8.6 mg G Tube $ Given 09/08/2023 9:43 AM CDT 8.6 mg G Tube $ Given 09/07/2023 10:24 AM CDT 8.6 mg G Tube thiamine (Vitamin B-1) tablet 100 mg 100 mg, Enteral Tube, DAILY, First dose on Tue09/07/23 at 0900, Until Discontinued $ Given 09/09/2023 10:58 AM CDT 100 mg G Tu be $ Given 09/08/2023 9:36 AM CDT 100 mg G Tube $ Given 09/07/2023 10:24 AM CDT 100 mg G Tube valproic acid (Depakene) solution 1,000 mg 1,000 mg, Per G Tube, EVERY 6 HOURS, First dose (after last reorder) on Tue09/07/23 at 0600, Until Discontinued $ Given 09/07/2023 5:52 AM CDT 1,000 mg valproic acid (Depakene) solution 500 mg 500 mg, Per G Tube, EVERY 6 HOURS, First dose (after last modification) on Tue09/07/23 at 1200, Until Discontinued $ Given 09/09/2023 5:23 PM CDT 500 mg $ Given 09/09/2023 12:33 PM CDT 500 mg $ Given 09/09/2023 5:38 AM CDT 500 mg documented in this encounter Active and Recently Administered Medications Times are shown in CDT. Scheduled Medication Order 09/07/2023 09/08/2023 09/09/2023 0.9% NaCl injection 3 mL(Linked Group 1) 3 mL, Intracatheter, EVERY 8 HOURS, First dose on Tue09/06/23 at 1645, Until Discontinued, Flush peripheral IV catheter with 3 mL of normal saline every 8 hours. 0604 (Not Administered - Provider: Blair Anaya RN - Reason: IV Currently Infusing)1400 (Due) 1230 (Not Administered - Provider: Nohemi Olvera RN - Reason: IV Currently Infusing)1420 (Not Administered - Provider: Nohemi Olvera RN - Reason: IV Currently Infusing)1423 (Canceled Entry - Provider: Nohemi Olvera RN)2043 ($ Given - Provider: Nanci Hawk RN) 0539 ($ Given - Provider: Nanci Hawk RN)1440 ($ Given - Provider: Azul Oliveira, ALFRED) apixaban (Eliquis) tablet 5 mg (CANCELED) 5 mg, Enteral Tube, 2 TIMES DAILY, First dose on Tue09/07/23 at 0045, Until Discontinued 0142 ($ Given - Provider: Weston Stockton RN) artificial tears ophthalmic ointment Each Eye, EVERY 8 HOURS, First dose on Tue09/07/23 at 0015, Until Discontinued 0142 ($ Given - Provider: Weston Stockton RN)0605 (Not Administered - Provider: Blair Anaya RN - Reason: IV Currently Infusing)1600 ($ Given - Provider: Laura Ayers, RN) 0012 ($ Given - Provider: Vicky Jenkins, ALFRED)0936 ($ Given - Provider: Luiza Ceja)1332 ($ Given - Provider: Nohemi Olvera RN)2246 (Not Administered - Provider: Nanci Hawk RN - Reason: Patient sleeping) 0539 ($ Given - Provider: Nanci Hawk RN)1440 ($ Given - Provider: Azul Oliveira, ALFRED) atorvastatin (Lipitor) tablet 40 mg 40 mg, Enteral Tube, AT BEDTIME, First dose on Tue09/07/23 at 0015, Until Discontinued 0143 ($ Given - Provider: Weston Stockton RN)212 ($ Given - Provider: Vicky Jenkins RN) 203 ($ Given - Provider: Nanci Hawk, ALFRED) cloBAZam (Onfi) tablet 15 mg 15 mg, Enteral Tube, DAILY, First dose (after last modification) on Tue09/07/23 at 0900, Until Discontinued 1024 ($ Given - Provider: Laura Ayers RN) 0934 ($ Given - Provider: Luiza Ceja) 1057 ($ Given - Provider: Azul Oliveira RN) famotidine (Pepcid) tablet 20 mg 20 mg, Enteral Tube, 2 TIMES DAILY, First dose on Tue09/07/23 at 0015, Until Discontinued 0143 ($ Given - Provider: Weston Stockton RN)1024 ($ Given - Provider: Laura Ayers RN)212 ($ Given - Provider: Vicky Jenkins RN) 0935 ($ Given - Provider: Luiza Ceja)2037 ($ Given - Provider: Nanci Hawk, ALFRED) 1058 ($ Given - Provider: Azul Oliveira RN) folic acid (Folvite) tablet 1 mg 1 mg, Enteral Tube, DAILY, First dose on Tue09/07/23 at 0900, Until Discontinued 1024 ($ Given - Provider: Laura Ayers RN) 0934 ($ Given - Provider: Luiza Ceja) 1057 ($ Given - Provider: Azul Oliveira RN) guaiFENesin (Robitussin) solution 15 mL 15 mL, Enteral Tube, EVERY 6 HOURS (03,09,15,21), First dose on Tue09/07/23 at 0300, Until Discontinued 0342 ($ Given - Provider: Weston Stockton RN)1023 ($ Given - Provider: Laura Ayers RN)1711 ($ Given - Provider: Laura Ayers RN)2126 ($ Given - Provider: Vicky Jenkins RN) 0505 ($ Given - Provider: Vicky Jenkins RN)0935 ($ Given - Provider: uLiza Ceja)1601 ($ Given - Provider: Nohemi Olvera, RN)2038 ($ Given - Provider: Nanci Hawk, ALFRED) 0355 ($ Given - Provider: Nanci Hawk, ALFRED)1057 ($ Given - Provider: Azul Oliveira, RN)1439 ($ Given - Provider: Azul Oliveira, RN) heparin 100 units/mL bolus from bag (COMPLETED) 6,400 Units (rounded from 6,424 Units = 80 Units/kg ? 80.3 kg), Intravenous, BOLUS FROM BAG ONCE, 1 dose, On Tue09/08/23 at 1600 1646 (Bolus From Bag - Provider: Nohemi Olvera, ALFRED) lacosamide (Vimpat) tablet 200 mg 200 mg, Oral, 2 TIMES DAILY, First dose on Tue09/07/23 at 0015, Until Discontinued, Per G-tube Tablets should be swallowed whole with liquid; do not divide. 0439 ($ Given - Provider: Weston Stockton RN)1024 ($ Given - Provider: Laura Ayers, RN)2127 ($ Given - Provider: Vicky Jenkins, ALFRED) 0934 ($ Given - Provider: Luiza Ceja)2038 ($ Given - Provider: Nanci Hawk, ALFRED) 1058 ($ Given - Provider: Azul Oliveira, RN) levETIRAcetam (Keppra) oral solution 2,000 mg 2,000 mg, Enteral Tube, 2 TIMES DAILY, First dose on Tue09/06/23 at 2345, Until Discontinued 1023 ($ Given - Provider: Laura Ayers, RN)2130 ($ Given - Provider: Vicky Jenkins, ALFRED) 1239 ($ Given - Provider: Nohemi Olvera, RN)2245 ($ Given - Provider: Nanci Hawk, ALFRED) 1104 ($ Given - Provider: Azul Oliveira, RN) magnesium sulfate 2 g in 50 mL bolus (COMPLETED) 2 g, at 25 mL/hr, Administer over 120 Minutes, Intravenous, ONCE, 1 dose, On Tue09/09/23 at 0615, Infuse at 1 gm/hr 0645 ($ New Bag/Syringe - Provider: Nanci Hawk RN)0850 (Stopped - Provider: Azul Oliveira, RN) polyethylene glycol 3350 (Miralax) packet 17 g 17 g, Enteral Tube, 2 TIMES DAILY, First dose on Tue09/07/23 at 0900, Until Discontinued, Mix in 8 ounces of water, juice, soda, coffee or tea prior to administration 1023 (Not Administered - Provider: Laura Ayers RN - Reason: See Comments - Comment: patient having diarrhea per night RN)2126 ($ Given - Provider: Vicky Jenkins RN) 0936 ($ Given - Provider: Luiza Ceja)2038 ($ Given - Provider: Nanci Hawk RN) 1057 ($ Given - Provider: Azul Oliveira, ALFRED) potassium chloride (Klor-Con) packet 40 mEq (COMPLETED) 40 mEq, Enteral Tube, ONCE, 1 dose, On Tue09/09/23 at 0615, DISSOLVE IN 120 ML OF COLD WATER OR JUICE AND DRINK SLOWLY 0645 ($ Given - Provider: Nanci Hawk RN) potassium phosphate 30 mmol in d5w 260 mL bolus premix (COMPLETED) 30 mmol, at 43.33 mL/hr, Administer over 6 Hours, Intravenous, ONCE, 1 dose, On Tue09/08/23 at 0800, 3 mmol phosphate = 4.4 mEq potassium 1228 ($ New Bag/Syringe - Provider: Nohemi Olvera RN)1828 (Due: Stopped - Provider: Nohemi Olvera RN) senna (Senokot) tablet 8.6 mg 8.6 mg, Enteral Tube, DAILY, First dose on Tue09/07/23 at 0900, Until Discontinued 1024 ($ Given - Provider: Laura Ayers RN) 0943 ($ Given - Provider: Luiza Ceja) 1057 ($ Given - Provider: Azul Oliveira, RN) thiamine (Vitamin B-1) tablet 100 mg 100 mg, Enteral Tube, DAILY, First dose on Tue09/07/23 at 0900, Until Discontinued 1024 ($ Given - Provider: Laura Ayers RN) 0936 ($ Given - Provider: Luiza Ceja) 1058 ($ Given - Provider: Azul Oliveira, ALFRED) valproic acid (Depakene) solution 1,000 mg (CANCELED) 1,000 mg, Per G Tube, EVERY 6 HOURS, First dose (after last reorder) on Tue09/07/23 at 0600, Until Discontinued 0552 ($ Given - Provider: Weston [place] RN) valproic acid (Depakene) solution 500 mg 500 mg, Per G Tube, EVERY 6 HOURS, First dose (after last modification) on Tue09/07/23 at 1200, Until Discontinued 1210 (Not Administered - Provider: Laura Ayers RN - Reason: Medication not available)1600 ($ Given - Provider: Laura Ayers, RN) 0012 ($ Given - Provider: Vicky Jenkins, RN)0506 ($ Given - Provider: Vicky Jenkins RN)1230 ($ Given - Provider: Nohemi Olvera RN)1800 (Due)2343 ($ Given - Provider: Nanci Hawk, ALFRED) 0538 ($ Given - Provider: Nanci Hawk RN)1233 ($ Given - Provider: Azul Oliveira RN)1723 ($ Given - Provider: Azul Oliveira RN) Continuous Medication Order 09/07/2023 09/08/2023 09/09/2023 heparin 25,000 units in 250 mL (100 units/mL) in dextrose 5% 0-40 Units/kg/hr ? 80.3 kg (0-32.12 mL/hr, rounded to 0-32.1 mL/hr), Intravenous, CONTINUOUS, Starting on Tue09/08/23 at 1600, Until Tue09/09/23 at 1942, Use the heparin calculator (scroll during admin) for starting rate, boluses or titrations, and weight selection. Use $New Bag/Syringe action when hanging a new bag, no need to use the calculator. Contact provider if patient requires doses outside the prescribed range. Order timed PTT to be drawn 6 hours after infusion initiated After two consecutive aPTTs drawn 6 hours apart are therapeutic, order aPTT to be drawn the following a.m. and daily, VTE Nomogram Goal aPTT (seconds): 69-110, Does patient require INITIAL Heparin Bolus? Yes 1645 ($ New Bag/Syringe - Provider: Nohemi Olvrea RN) 0113 ($ New Bag/Syringe - Provider: Nanci Hawk RN)0537 (Rate Change - Provider: Nanci Hawk RN) PRN Medication Order 09/07/2023 09/08/2023 09/09/2023 0.9% NaCl injection 1-10 mL(Linked Group 1) 1-10 mL, Intracatheter, PRN, Other, peripheral line flush, Starting on Tue09/06/23 at 1604, Until Tue09/09/23 at 194, Flush peripheral IV catheter with 1-10 mL of normal saline before and after medications and prn to clear blood from the line or to verify patency. acetaminophen (Tylenol) tablet 650 mg 650 mg, Enteral Tube, EVERY 4 HOURS PRN, Mild Pain, Moderate Pain, Starting on Tue09/06/23 at 2354, Until Tue09/09/23 at 194, Patient preference for lesser PRN pain meds may be honored when the patient requests a less strong medication, a lower dose, or a less intrusive route of administration when the lesser drug, dose and route have been ordered for the patient. This patient request must be documented in the MAR. If both oral and IV options are ordered for the same pain severity, give oral first unless patient cannot tolerate oral intake albuterol-ipratropium (Duo-Neb) nebulizer solution 3 mL 3 mL, Inhalation, EVERY 6 HOURS PRN, Shortness of Breath, Wheezing, Starting on Tue09/06/23 at 2354, Until Tue09/09/23 at 1942 bisacodyl (Dulcolax) suppository 10 mg 10 mg, Rectal, DAILY PRN, Constipation, Starting on Tue09/06/23 at 2354, Until Tue09/09/23 at 1942 calcium carbonate (500 mg elemental Ca/5 mL) suspension 1,000 mg, Enteral Tube, EVERY 6 HOURS PRN, Heartburn, Starting on Tue09/07/23 at 0026, Until Tue09/09/23 at 194, Shake well before using. heparin 100 units/mL bolus from bag 0-4,800 Units (rounded from 0-4,818 Units = 0-60 Units/kg ? 80.3 kg), Intravenous, BOLUS FROM BAG PRN, heparin nomogram bolus, Starting on Marian 09/08/23 at 1543, Until Tue09/09/23 at 1942 iopamidol (Isovue 300) 61 % contrast ONCE PRN, Starting on Tue09/09/23 at 1615, Until Tue09/09/23 at 1615, Intra-op 1615 ($ Given - Prov ider: Mariano Cullen MD) Linked Groups Order Group 1: SALINE LOCK, INSERT AND MAINTAIN (CANCELED) Routine, CONTINUOUS, Starting on Tue09/06/23 at 1615, Until Specified, New collection, Task Completed: Yes And 0.9% NaCl injection 3 mLJump to med 3 mL, Intracatheter, EVERY 8 HOURS, First dose on Tue09/06/23 at 1645, Until Discontinued, Flush peripheral IV catheter with 3 mL of normal saline every 8 hours. And 0.9% NaCl injection 1-10 mLJump to med 1-10 mL, Intracatheter, PRN, Other, peripheral line flush, Starting on Tue09/06/23 at 1604, Until Tue09/09/23 at 1942, Flush peripheral IV catheter with 1-10 mL of normal saline before and after medications and prn to clear blood from the line or to verify patency. 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
--- OUTSIDE RECORDS SUMMARY | 2024-06-08 05:29 | XMS_ITS | Encounter Summary ---
Author Organization [facility] Health Address [address] [place] [address] Care Team Providers Care Assembler Tractor Name Role Phone Elizabeth Sullivan RN Unavailable [phone] Joyce Luevano FLYER BUILDER-PARIMUTUEL CLERK Primary Care Provider [phone] Encounter Details Date Type Department Care Team (Latest Contact Info) Description 09/14/2023 Travel Social History Tobacco Use Types Packs/Day [...] and heating? Not hard at all 06/19/2023 [facility] [place] of Occupat ional Health - Occupational Stress [...] place to sleep or slept in a long-term (including now)? 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
--- OUTSIDE RECORDS SUMMARY | 2024-06-08 05:29 | XMS_ITS | Encounter Summary ---
Author Organization [facility] Health Address [address] [facility] [place] [address] Care Team Providers Care Financial Processing Clerk Name Role Phone Elizabeth Sullivan RN Unavailable Joyce Luevano QUARRY MANAGER-BUTT TRIMMER Primary Care Provider [phone] Encounter Details Date Type Department Care Team (Late st Contact Info) Description 09/12/2023 Orders Only [facility] - Neurology [address] [place] [address] Yana Ramos APRN-CNP [address] [place] [address] Social History Tobacco Use Types Packs/Day Years [...] and heating? Not hard at all 06/19/2023 [facility] [place] of Occupat ional Health - Occupational Stress [...] place to sleep or slept in a halfway (including now)? No 06/19/2023 Sex and Gender [...] as of this encounter Progress Notes * Berneking, Yana, QUARRY MANAGER-BUTT TRIMMER - 09/12/2023 11:53 AM CDT Confirmed via [place] (duong Begum [facility]) patients clobazam is currently scheduled as 10mg AM [id number] PM. Patient's POA is requesting we continue to slowly wean/decrease clobazam due to concern for oral secretions. Discussed?all seizure medications are associated with increased risk of aspiration pneuomnia (thought to be due to their sedative properties). Uncontrolled seizures are also associated with increased risk of aspiration pneumonia. 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 Confi rmed understanding this may lead to recurrence of seizures, dicussed and when his seizures recur this could lead to him requiring sedation and prolonged hospitalization. Prolonged seizures can lead to worsening of his condition and/or , voiced understanding. Will decrease clobazam to 10mg BID for now. ELANA Cullen 09/12/2023 11:56 AM documented in this encounter Miscellaneous Notes * Addendum Note - Yana Ramos APRN-CNP - 09/12/2023 11:57 AM CDTAddended by: YANA RAMOS on: 09/12/2023 11:57 AM Modules accepted: Orders documented in this encounter Plan of Treatment Upcoming Encounters Date Type Department Care Team (Late st Contact Info) Description 12/05/2024 1:00 PM CDT Office Visit [facility] - Neurology [address] [place] [address], [place] [address] Sean Raymundo, [address] [place] [address] [place] [phone] documented as of this encounter Visit Diagnoses Not on filedocumented in this encounter Additional Health Concerns Infection Onset Date Last Indicated Resolved Time 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
--- OUTSIDE RECORDS SUMMARY | 2024-06-08 05:29 | XMS_ITS | Encounter Summary ---
Author Organization [facility] Health Address [address] [facility] [place] [address] Care Team Providers Care Flight Engineer Name Role Phone Elizabeth Sullivan RN Unavailable [phone] Joyce Luevano APRN-DEFENSE ATTORNEY Primary Care Provider [phone] Reason for Referral * Radiology Services (Routine) - Closed Specialty Diagnoses / Procedures Referred By Anabella dan Referred To Contact ENT-Otolaryngology Diagnoses Oropharyngeal dysphagia Problems with swallowing and mastication Procedures FL SWALLOWING FUNCTION STUDY Alden Hurtado MD [address] [place] [address] [facility] [address] [place] [phone] Referral ID Status Reason Start Date Expiration Date Visits Re quested Visits Authorized [id number] Closed 08/04/2023 08/03/2024 1 1 ING AIDE TECHNICIAN Encounter Details Date Type Department Care Team (Late st Contact Info) Description 08/04/2023 Orders Only [facility] - ENT [address] [place] [phone] Alden Hurtado MD [address] [place] [address] [place] [address] Oropharyngeal dysphagia ; Problems with swallowing and mastication Social History Tobacco Use Types Packs/Day Years [...] and heating? Not hard at all 06/19/2023 [facility] [place] of Occupat ional Health - Occupational Stress [...] place to sleep or slept in a longterm (including now)? No 06/19/2023 Sex and Gender [...] Office Visit [facility] - Neurology [address] [place] [address], [facility] [place] [phone] Sean Raymundo, DO [address] [place] [phone] documented as of this encounter Results * FL SWALLOWING FUNCTION STUDY (08/26/2023 12:30 PM CDT) Anatomical Region Laterality Modality Chest Radiographic Cynthia ging 08/26/2023 1:51 PM CDT Impressions 08/26/2023 8:24 PM CDT IMPRESSION: Fluoroscopy was provided for a procedure performed by Speech Therapy. Please see the Speech Therapy report for interpretation. > Dictated by Sierra Lyman M.D. - Diagnostic Storeperson. I, John Stubbs MD have personally reviewed and interpreted this examination/study. > Interpreting Provider: John Stubbs MD on 08/26/2023 8:24 PM Narrative 08/26/2023 8:24 PM CDT PROCEDURE: ??FL SWALLOWING FUNCTION STUDY, DATE/TIME OF EXAM: ??08/26/2023 12:34 PM, LOCATION ??[facility] INDICATION: R13.12: Oropharyngeal dysphagia R13.10: Problems with swallowing and mastication ADDITIONAL CLINICAL INFORMATION: Ordering Provider Reason For Exam: Technologist Note: Additional: COMPARISON: None. FLUOROSCOPY TIME: ??3.87 minutes; Number of images: ??[id number] Procedure Note John Stubbs MD - 08/26/2023 PROCEDURE: FL SWALLOWING FUNCTION STUDY, DATE/TIME OF EXAM: 08/26/2023 12:34 PM, LOCATION [facility] INDICATION: R13.12: Oropharyngeal dysphagia R13.10: Problems with swallowing and mastication ADDITIONAL CLINICAL INFORMATION: Ordering Provider Reason For Exam: Technologist Note: Additional: COMPARISON: None. FLUOROSCOPY TIME: 3.87 minutes; Number of images: [id number] IMPRESSION: Fluoroscopy was provided for a procedure performed by Speech Therapy. Please see the Speech Therapy report for interpretation. > Dictated by Sierra Lyman M.D. - Diagnostic Storeperson. I, John Stubbs MD have personally reviewed and interpreted this examination/study. 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
--- OUTSIDE RECORDS SUMMARY | 2024-06-08 05:29 | XMS_ITS | Encounter Summary ---
Author Organization [facility] Health Address [address] [place] [address] Care Team Providers Care Lithographic Photographer Apprentice Name Role Phone Elizabeth Sullivan RN Unavailable [phone] Dany Monsivais MD Primary Care Provider Reason for Visit * Reason Onset Date Comments Care Management 02/10/2024 Encounter Details Date Type Department Care Team (Late st Contact Info) Description 02/10/2024 Telephone [facility] - Neurology [address] [facility], [place] [phone] Juan Jose Gilbert, COMBINING MACHINE OPERATOR-CASSANDRA DEVELOPER [address] [place] [address] Care Management Social History Tobacco Use Types [...] and heating? Not hard at all 06/19/2023 [facility] of Occupat ional Health - Occupational Stress [...] place to sleep or slept in a mcc (including now)? No 06/19/2023 Sex and Gender [...] Telephone Encounter - Michaela Bass RN - 02/10/2024 1:56 PM CDT Pt's sister called and pt is at [facility] and they are waiting for a bed. Let her know thatwe cannot determine when a bed will be available. She v/u. Will update us as necessary. 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
--- OUTSIDE RECORDS SUMMARY | 2024-06-08 05:29 | XMS_ITS | Encounter Summary ---
Author Organization [facility] Health Address [address] [place] [address] Care Team Providers Care Cell Tender Name Role Phone Elizabeth Sullivan RN Unavailable [phone] Dany Monsivais MD Primary Care Provider [phone] Reason for Visit * Reason Onset Date Comments Update 02/08/2024 Encounter Details Date Type Department Care Team (Late st Contact Info) Description 02/08/2024 Telephone [facility] Neurology [address] [facility], [place] [phone] Juan Jose Gilbert, SUPERVISOR IRRIGATION-FLAKE OR SHRED ROLL OPERATOR [address] [place] [address] Update Social History Tobacco Use Types Packs/Day [...] heating? Not hard at all 06/19/2023 [facility] [place] [facility] of Occupat ional Health - Occupational Stress [...] encounter Miscellaneous Notes * Telephone Encounter - JuanJ ose Gilbert APRN-CNP - 02/08/2024 2:14 PM CDT LINE CONSTRUCTION SUPERVISOR Mary at facility contacted regarding request that patient go to the ER. She voices that she previously gave 1 mg Ativan and increased Depakote in past day. Patient sent to [facility] last night without changes per report. I continuously voiced concerns that patient is in Status Epilepticus and requested that patient be taken to [facility] ED. Appliance Installer voiced similar concerns and stated patient has had multiple seizures in past day, latest lasting 30 minutes, and patient has not returned to baseline. On repeat request to take patient to ED, staff agreeable. If taken to [facility] then arrangements can be made to transfer to [facility] if appropriate. 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
--- OUTSIDE RECORDS SUMMARY | 2024-06-08 05:29 | XMS_ITS | Encounter Summary ---
Author Organization [facility] Health Address [address] [facility] [place] [address] Care Team Providers Care National Sales Trainer Name Role Phone Elizabeth Sullivan RN Unavailable [phone] Dany Monsivais MD Primary Care Provider Encounter Details Date Type Department Care Team (Latest Contact Info) Description 02/18/2024 Travel Social History Tobacco Use Types Packs/Day [...] and heating? Not hard at all 06/19/2023 [facility] [place] of Occupat ional Health - Occupational Stress [...] place to sleep or slept in a retirement (including now)? 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
--- OUTSIDE RECORDS SUMMARY | 2024-06-08 05:29 | XMS_ITS | Encounter Summary ---
Author Organization [facility] Address [address] [facility] [place] [address] Care Team Providers Care Claims Service Adjustor Name Role Phone Elizabeth Sullivan RN Unavailable [phone] Joyce Luevano SQUAD SERGEANT-OPERATING ROOM TECHNICIAN Primary Care Provider [phone] Encounter Details Date Type Department Care Team (Late st Contact Info) Description 08/26/2023 11:00 AM CDT Office Visit [facility] - ENT [address] [place] [phone] Alden Hurtado MD [address] [place] [phone] Marcella Green, BODYWORK THERAPIST [address] [place] [address] [place] [phone] Oropharyngeal dysphagia (Primary Dx); Problems with swallowing and mastication Social History [...] you are drinking? Patient does not drink 4 Q3: How often do you have si x or more drinks on one occasion? Never 06/19/2023 Overall Financial Resource Strain (CARDIA) Answe r Date Recorded How hard is it for you to pa y for the very basics like food, housing, medical care, and heating? Not hard at all 06/19/2023 [facility] of Occupat ional Health - Occupational Stress [...] as of this encounter Progress Notes * Marcella Green, BODYWORK THERAPIST - 08/26/2023 1:00 PM CDT Speech Language Pathology Speech Therapy Modified Barium Swallow Patient: Bi Tabor [facility] Record Number [id number] Date of : 1960 Age: [age] year old Referring Physician: Dr. Hurtado Diagnosis: Patient Active Problem List: Cerebrovascular accident (HCC) Hyperlipidemia Essential (primary) hypertension Insomnia Low back pain Osteoporosis Truncal ataxia Therapeutic procedure Seizures (CMS/HCC) Alcohol abuse, uncomplicated Benign neoplasm of prostate Epilepsy, unspecified, not intractable, without status epilepticus (HCC) Other specified rheumatoid arthritis, unspecified site (HCC) Alzheimer's disease with early onset (CMS/HCC) Cognitive communication deficit COVID-19 Dysphagia, oropharyngeal phase Hemiplegia and 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- dominant side (CMS/HCC) History of CVA (cerebrovascular accident) Paroxysmal tachycardia, unspecified (CMS/HCC) Status epilepticus (CMS/HCC) Seizure disorder (HCC) Bacteremia Sepsis due to pneumonia (HCC) Ulcer of left foot (HCC) PAD (peripheral artery disease) (HCC) Severe protein-calorie malnutrition (HCC) Abdominal pain, generalized Lethargy History of stroke Protein-calorie malnutrition, unspecified severity (HCC) Aspiration into airway Aspiration pneumonitis (HCC) Leukocytosis, unspecified type Hypoxia Acute respiratory failure with hypoxia (HCC) Atelectasis, right Contrast-induced nephropathy Zenker diverticulum Chronic respiratory failure with hypoxia (HCC) Pressure ulcer of right heel, stage 3 (HCC) Dementia, vascular (HCC) Nasal polyp Acute blood loss anemia PEG (percutaneous endoscopic gastrostomy) status (HCC) Tracheostomy in place (HCC) Delayed gastric emptying Anemia of chronic disease Acute encephalopathy Aspiration into airway, subsequent encounter Pleural effusion Elevated lactic acid level Past Medical History: Diagnosis Date ??? Cerebrovascular disease ??? HTN (hypertension) ??? Seizure (HCC) Subjective: Bi Tabor is a 63 year old male with history of significant neurologic injury related to prior stroke, head injury, Alzheimer's who previously underwent a Zenkers diverticulectomy in an effort to reduce his chronic aspiration and recurrent aspiration pneumonias, as well as a tracheost suzi for respiratory failure around that time. He is feeding tube dependent currently. He has not taken any PO intake in over a year. FOIS: 1, Nothing by mouth Weight: Wt Readings from Last 3 Encounters: 06/25/23 80.3 kg (177 lb) 02/25/23 71.5 kg (157 lb 10.1 oz) 01/14/23 71.5 kg (157 lb 10.1 oz) Height: Ht Readings from Last 3 Encounters: 06/18/23 1.778 m (5' 10 ) 02/25/23 1.778 m (5' 10 ) 01/01/23 1.778 m (5' 10 ) Medical History: Pulmonary status: Trach in place Pulmonary history: None reported Neurological history: CVA, epilepsy Esophageal history: GERD Systemic/metabolic history: None reported Clinical Observations and Exam Cognitive/Mental Status: Limited, at baseline status Ambulatory status: Unable to ambulate Clinical Assessment: Patient unable to adequately follow instructions to participate. MODIFIED BARIUM SWALLOW STUDY: Procedure: This procedure was performed in conjunction with radiology using lateral views. Wcdjzwfl-yo-eevjuqbsw views were unable to be obtained due to inability to transfer. Commercially prepared, standardized barium viscosities were used and graduated from thin liquid to pudding consistency. Thepatient was given the following items in the lateral view: Varibar thin liquid barium (5 cc, 5 cc, single sip), nectar thick liquid barium (5 cc, single sip), 5 cc honey thick liquid, pudding by teaspoon. Oral Stage: Oral transit is characterized by inadequate oral containment with lack of lingua-velar valving resulting in premature spillage. Lingua-palatal stripping is reduced. Tongue base retractionis reduced. Pharyngeal Stage: Pharyngeal response is at the level of the pyriform sinuses. Pharyngeal clearanceis reduced, consistent with moderate base of tongue, vallecular and pyriform sinus residue with thin and nectar thick liquid. Residue increases to significant amounts with honey thick liquid and pudding. Posterior pharyngeal wave is reduced and the epiglottis does not invert. Airway protection is incomplete. There is silent spiration before, during and after the swallow with thin and nectar thick liquid. Esophageal Stage: PES is patent. There is residual Zenker's diverticulum, although no evidence of retention or reflux of material from the Zenker's. Compensatory Strategies: Smaller size boluses MBSImP Component Scoring and Description: Component Number Component Descriptor Score Scale Score & Description of Score 1 Lip Closure 0-4 0 = No labial escape 2 Tongue Control/Bolus Hold 0-3 3 = Posterior escape of greater than half of bolus 3 Bolus Prep/Mastication 0-3 3 = Minimal chewing/mashing with majority of bolus unchewed 4 Bolus Transport/Lingual Motion 0-4 0 = Brisk tongue motion 5 Oral Residue 0-4 2 = Residue collection on oral structures 6 Initiation of Pharyngeal Swallow 0-4 3 = Bolus head in pyriforms 7 Soft Palate Elevation 0-4 0 = No bolus between soft palate (SP)/pharyngeal wall (PW) 8 Laryngeal Elevation 0-3 1 = Partial superior movement of thyroid cartilage/partial approximation of arytenoids to epiglottic petiole 9 Anterior Hyoid Excursion 0-2 0 = Complete anterior movement 10 Epiglottic Movement 0-2 2 = No inversion 11 Laryngeal Vestibular Closure 0-2 1 = Incomplete; narrow column air/contrast in laryngeal vestibule 12 Pharyngeal Stripping Wave 0-2 1 = Present - diminished 13 Pharyngeal Contraction 0-3 Unable to assess 14 Pharyngoesophageal Segment Opening 0-3 0 = Complete distension and complete duration; no obstruction of flow 15 Tongue Base Retraction 0-4 2 = Narrow column of contrast or air between TB and PW 16 Pharyngeal Residue 0-4 3 = Majority of contrast within or on pharyngeal structures 17 Esophageal Clearance (upright) 0-4 Unable to assess Impressions: Bi Tabor presents with oropharyngeal dysphagia. He presents with reduced efficiency due to reduced tongue base retraction, absent epiglottic inversion and reduced pharyngeal constriction resulting in reduced pharyngeal clearance. Additionally, there is reduced safety of swallow with aspiration occurring before, during and after the swallow. Patient was unable to participate in strategies, however I did attempt to reduce bolus size which was not successful. Results and recommendations from this evaluation were reviewed with the patient. I recommend continuing with feeding tube as primary source of nutrition/hydration. Given elevated risk of aspiration and pulmonary complications, I do not recommend further PO intake. Patient's family demonstrated goodunderstanding of instructions given. Informed Consent to Treatment: Unable to obtain informed consent due to altered mental status or questionable understanding. Patient's family and physician were instructed regarding the above techniques, recommendations and plan of care and verbalized understanding. Guidelines were posted (inpatient only): n/a Goals: Short Term Goal(s): Patient to receive instruction in compensatory swallowing strategies and/or recommendations and verbalize understanding. Fci Goal(s): Patient to tolerate least restrictive diet without complications. Plan: Continue NPO with nutrition/hydration via feeding tube Careful SANDEEP precautions Oral hygiene at least twice each day Marcella Green MA, CCC-BODYWORK THERAPIST, [facility] Speech Language Pathologist Department of Otolaryngology- Head and Neck Surgery documented in this encounter Plan of Treatment Upcoming Encounters Date Type Department Care Team (Late st Contact Info) Description 12/05/2024 1:00 PM CDT Office Visit [facility] - Neurology [address] [place] [place] [address], [place] [phone] Sean Raymundo, DO [address] [place] [address] [place] [phone] documented as of this encounter Visit Diagnoses Diagnosis Oropharyngeal dysphagia- Primary Dysphagia, oropharyngeal phase Problems with swallowing and mastication documented in this encounter Additional Health Concerns Infection Onset Date Last Indicated Resolved Time RESIST ACB 09/18/2022 11/28/2022 MDRO 09/18/2022 06/11/2023 MRSA 06/11/2023 06/11/2023 documented as of this encounter Care Teams Claims Service Adjustor Relationship Specialty Start Date End Date Joyce Luevano, SQUAD SERGEANT-OPERATING ROOM TECHNICIAN [address] [place] [address] PCP - General 03/08/22 11/17/23 Elizabeth Sullivan, RN Fundraising Sale Representative 10/14/17 documented as of this encounter
--- OUTSIDE RECORDS SUMMARY | 2024-06-08 05:29 | XMS_ITS | Encounter Summary ---
Author Organization [facility] Health Address [address] [facility] [place] [address] Care Team Providers Care Lace Weaver Name Role Phone Elizabeth Sullivan RN Unavailable [phone] Dany Monsivais MD Primary Care Provider [phone] Encounter Details Date Type Department Care Team (Latest Contact Info) Description 04/30/2024 Travel Social History Tobacco Use Types Packs/Day [...] and heating? Not hard at all 06/19/2023 [facility] [place] of Occupat ional Health - Occupational Stress [...] Office Visit [facility] - Neurology [address] [place] [address], [facility] [place] [phone] Sean Raymundo, DO [address] [place] [address] [place] [phone] documented as of this encounter Visit Diagnoses Not on filedocumented in this encounter Additional Health Concerns Infection Onset Date Last Indicated Resolved Time RESIST ACB 09/18/2022 11/28/2022 MDRO 09/18/2022 06/11/2023 MRSA 06/11/2023 06/11/2023 documented as of this encounter Care Teams Lace Weaver Relationship Specialty Start Date End Date Dany Monsivais MD [address] [place] [phone] PCP - General Family Medicine 11/18/23 Elizabeth Sullivan, RN Telecommunications Operator 10/14/17 documented as of this encounter
--- OUTSIDE RECORDS SUMMARY | 2024-06-08 05:29 | XMS_ITS | Encounter Summary ---
Author Organization [facility] Address [address] [place] [address] Care Team Providers Care Wildlife Veterinarian Name Role Phone Elizabeth Sullivan RN Unavailable [phone] Dany Monsivais MD Primary Care Provider Reason for Visit * Reason Comments FEEDING TUBE PROBLEM BIBEMS from [facility] for G tube displacement. G tube fell out this AM, facility tried to replace but unable. G tube was placed yesterday at [facility] per patient. GCS 15, A&Ox4, breathing unlabored, has chronic trach in place on 2L blow by SPO2 96%. Encounter Details Date Type Department Care Team (Late st Contact Info) Description 04/21/2024 3:04 PM BIOLOGICS SPECIALIST - 04/21/2024 9:01 PM RUST Emergency [facility] EMERGENCY DEPARTMENT [address] [place] [phone] Alden Del Rosario MD [address] [place] [address] [place] [phone] Attention to G-tube (HCC) (Primary Dx); Irritation around percutaneous endoscopic gastrostomy (PEG) tube site (HCC); Tracheostomy care (HCC) Discharge Disposition: Home or Self Care Social [...] and heating? Not hard at all 06/19/2023 [facility] of Occupat ional Health - Occupational Stress [...] place to sleep or slept in a group home (including now)? No 06/19/2023 Sex and Gender Information Value Date Recorded Sex Assigned at Not on file Gender Identity Not on file Sexual Orientation Not on file documented as of this encounter Last Filed Vital Signs Vital Sign Reading Time Taken Comments Blood Pressure 157/94 04/21/2024 7:30 PM BIOLOGICS SPECIALIST Pulse 75 04/21/2024 7:30 PM BIOLOGICS SPECIALIST Temperature 36.9 ??C (98.4 ??F) 04/21/2024 3:11 PM CS T Respiratory Rate 16 04/21/2024 7:30 PM BIOLOGICS SPECIALIST Oxygen Saturation 99% 04/21/2024 7:30 PM BIOLOGICS SPECIALIST Inhaled Oxygen Concentration - - Weight 77.1 kg (170 lb) 04/21/2024 3:11 PM BIOLOGICS SPECIALIST Height 175.3 cm (5' 9 ) 04/21/2024 3:11 PM BIOLOGICS SPECIALIST Body Mass Index 25.1 04/21/2024 3:11 PM BIOLOGICS SPECIALIST documented in this encounter Functional Status [...] this encounter Discharge Instructions * Discharge Instructions* Everett Cash DO - 04/21/2024 7:44 PM BIOLOGICS SPECIALIST You have been seen in the emergency department today after your G-tube was removed. We replaced theG-tube with a 18Fr since the 24Fr you typically have would not fit. We obtained imaging following replacement of your G-tube and confirmed placement was correct. Please follow up with your primary care provider to ensure resolution of the symptoms you were experiencing today. Please take medications as prescribed. Please return to the emergency department or seek medical attention if you start toexperience fever, chills, chest pain, headache, shortness of breath, abdominal pain, and leg swelling. OGICS SPECIALIST documented in this encounter Medications at [...] as of this encounter ED Notes * Chhaya Yung RN - 04/21/2024 8:46 PM CST [facility] at bedside to transport. Report given to customer project manager. All questions answered. OGICS SPECIALIST * Chhaya Yung RN - 04/21/2024 8:24 PM CST POA/sister Adriane updated on patient's return to facility. OGICS SPECIALIST * Chhaya Yung RN - 04/21/2024 6:41 PM CST Updated sister Adriane, requests call when patient is discharged. OGICS SPECIALIST * Everett Cash DO - 04/21/2024 6:25 PM CST EMERGENCY MEDICINE RESIDENT NOTE History of Present Illness: Bi Tabor is a 64 year old male BIBEMS with a PMHx of CVA, hypertension, seizures, vascular dementia, BPH, and Alzheimer's disease who presents to [facility] ED for G-tube problem. Patient brought by [facility] for G- tube displacement. Per EMS report to RN, patient's G-tube fell out this morning and facility tried to replace the G-tube but was unsuccessful. Per chart review, patient is A&Ox 0 at baseline and is nonverbal due to being trach'd. On evaluation patient today, patient is able to nod yes when asked if his name is Bi Tabor. Patient additionally is able to nodyes and no to other basic questions. Patient does nod yes to having tenderness in his abdomen motions to the G-tube site. Patient denies any chest pain or shortness of breath at this time. Medications: No current facility-administered medications on file prior to encounter. Current Outpatient Medications on File Prior to Encounter Medication Sig Dispense Refill acetaminophen (Tylenol) 325 MG tablet 2 (two) tablets by Enteral Tube route every 6 hours as neededMaximum allowable Acetaminophen amount = 4 Grams (4000 mg) / 24 hours. albuterol-ipratropium (Duo-Neb) 0.5-2.5 (3) MG/3ML nebulizer solution Inhale 3 mL by mouth every 6 hours as needed for Shortness of Breath or Wheezing apixaban (Eliquis) 5 MG tablet Take 1 (one) tablet by mouth 2 times daily Per G-tube artificial tears ophthalmic ointment Instill into both eyes every 8 hours aspirin (Aspirin) 81 MG chew tablet 1 (one) tablet by Enteral Tube route once daily atorvastatin (Lipitor) 40 MG tablet 1 (one) tablet by Enteral Tube route at bedtime 30 tablet 0 bisacodyl (Dulcolax) 10 MG suppository Insert 1 (one) suppository into the rectum once daily as needed for Constipation Calcium Carbonate Antacid (calcium carbonate, 500 mg elemental Ca/5 mL,) 1250 MG/5ML suspension 5 mL by Enteral Tube route every 6 hours as needed cloBAZam (Onfi) 10 MG tablet Take 1 (one) tablet by mouth 2 times daily 60 tablet 5 famotidine (Pepcid) 20 MG tablet 1 (one) tablet by Enteral Tube route 2 times daily 60 tablet 0 folic acid (Folvite) 1 MG tablet 1 (one) tablet by Enteral Tube route once daily guaiFENesin (Robitussin) 100 MG/5ML solution 15 mL by Enteral Tube route Every 6 Hours (03,09,15,21) 200 mL 0 lacosamide (Vimpat) 200 MG tablet 1 (one) tablet by Per G Tube route 2 times daily for 90 days levETIRAcetam (Keppra) 100 MG/ML oral solution 20 mL by Enteral Tube route 2 times daily for 90 days metoprolol tartrate IR (Lopressor) 25 MG tablet 1 (one) tablet by Enteral Tube route 2 times daily pantoprazole (Protonix) 40 MG packet Take 1 (one) packet by mouth once daily 0 polyethylene glycol 3350 (Miralax) 17 g packet 17 (seventeen) g by Enteral Tube route 2 times daily15 packet 0 senna (Senokot) 8.6 MG tablet 1 (one) tablet by Enteral Tube route once daily 30 tablet 0 thiamine (Vitamin B-1) 100 MG tablet 1 (one) tablet by Enteral Tube route once daily valproic acid (Depakene) 250 MG/5ML solution 25 mL by Per G Tube route every 6 hours Allergies: Allergies Allergen Reactions Clonazepam Psychiatric hallucinations Social History: Social History Tobacco Use Smoking status: Former Current packs/day: 1.00 Average packs/day: 1 pack/day for 15.0 years (15.0 ttl pk-yrs) Types: Cigarettes Smokeless tobacco: Never Substance Use Topics Alcohol use: No Comment: last drink 2015 Review of Systems: See HPI for pertinent positives and negatives. Physical Exam: BP 157/94 Pulse 75 Temp 98.4 ??F (36.9 ??C) Resp 16 Ht 1.753 m (5' 9 ) Wt 77.1 kg (170 lb) SpO2 99% Physical Exam Vitals reviewed. Constitutional: General: He is not in acute distress. Appearance: He is not ill-appearing or diaphoretic. HENT: Head: Normocephalic and atraumatic. Mouth/Throat: Mouth: Mucous membranes are moist. Pharynx: Oropharynx is clear. Comments: Oropharynx clear following suctioning of oral secretions. Tracheostomy tube present with gurgling/rattling sounds coming from trach tube Eyes: General: No scleral icterus. Conjunctiva/sclera: Conjunctivae normal. Pupils: Pupils are equal, round, and reactive to light. Cardiovascular: Rate and Rhythm: Normal rate and regular rhythm. Pulses: Normal pulses. Heart sounds: Normal heart sounds. No murmur heard. Pulmonary: Effort: Pulmonary effort is normal. Breath sounds: Normal breath sounds. Comments: Upper airway gurgling/rattling auscultated Abdominal: General: There is no distension. Palpations: Abdomen is soft. Comments: Skin breakdown noted superior to G-tube site. Patient endorses tenderness to palpation around G-tube site. Musculoskeletal: Right lower leg: No edema. Comments: Patient has left above-knee amputation. SCD present on right lower extremity. No edema noted on right lower extremity. Skin: General: Skin is warm and dry. Capillary Refill: Capillary refill takes less than 2 seconds. Neurological: Mental Status: He is alert. Medical Decision Making: Clinical Diagnoses: G-tube problem DDx: Malfunction of medical billing associate vs G-tube site infection vs G-tube site irritation vs gastric injury vs tracheitis Plan: Therapeutic - Tylenol Labs - none Imaging - KUB w/ gastrografin contrast through G-tube Consults - none Next steps - Replace G-tube, imaging, reassess ED Course: I have reviewed triage notes, vitals, available labs and imaging, and assessed the patient. ED Course as of 04/21/242228 Sat Apr 21, 2024 1634 Pt seen. Replaced G-tube. Attempted to place 24Fr G-tube per chart review of pts prior G-tube size. Was unable to pass 24Fr G-tube. An 18Fr G-tube was then placed successfully. [ZM] 1638 Will order KUB X-ray with contrast to confirm G-tube placement [ZM] 194 G-tube placement confirmed on KUB [ZM] ED Course User Index [ZM] Everett Cash DO Clinical Impressions as of 04/21/242228 Attention to G-tube (HCC) Irritation around percutaneous endoscopic gastrostomy (PEG) tube site (HCC) Tracheostomy care (HCC) Studies and Interpretations: Pulse Oximetry: Saturation: 95% Oxygen Delivery: 2L blow by over trach Interpretation: No hypoxia at this time Summary: (see ED course for further details) This is a 64 year old male presenting for G-tube problem. Patient's G-tube was pulled out this morning SNF. SNF reportedly attempted to replace G-tube and was unsuccessful. Exam is notable for minor skin breakdown noted superior to G-tube site. Patient endorses tendernessto palpation around G-tube site. Oropharynx clear following suctioning of oral secretions. Tracheostomy tube present with gurgling/rattling sounds coming from trach tube. RT called and performed suctioning of pts trach. Gurgling/rattling was relieved after trach suctioned by RT. Assessment is most consistent with G-tube problem (G-tube pulled out). Plan is for replacement of new G-tube. Per chart review pt has had a 24Fr G-tube in place in the past. Attempted to pass a 24Fr G-tube, but was unsuccessful. An 18Fr G-tube was then placed successfully and was well fitting. Imaging: KUB reveals G-tube in place and no extraluminal extravasation of contrast. Pt stable and discharged back to SNF. Interventions: Medications acetaminophen (Tylenol) solution 650 mg (650 mg Enteral Tube $ Given 04/21/241939) Procedures Final ED Diagnosis: 1. Attention to G-tube (HCC) 2. Irritation around percutaneous endoscopic gastrostomy (PEG) tube site (HCC) 3. Tracheostomy care (HCC) Disposition: Discharge. Everett Cash DO Emergency Medicine, PGY-1 OGICS SPECIALIST Associated attestation - Alden Del Rosario MD - 05/05/2024 12:52 AM BIOLOGICS SPECIALIST Emergency Medicine Attending Note Resident Attestation Note I have personally seen, examined and been fully involved in the management of this patient with theresident. I discussed the patient with the resident, reviewed their note, and agree with their assessment andplan of care. * Chhaya Yung RN - 04/21/2024 3:11 PM CST BIBEMS from [facility] for G tube displacement. G tube fell out this AM, facility tried to replace but unable. G tube was placed yesterday at [facility] per patient. GCS 15, A&Ox4, breathing unlabored, has chronic trach in place on 2L blow by SPO2 96%. OGICS SPECIALIST * Aureliano Knox RN - 04/21/2024 3:04 PM CST Bed: 16 Expected date: Expected time: Means of arrival: Comments: 1341 - g tube replacement OGICS SPECIALIST documented in this encounter Plan of Treatment Upcoming Encounters Date Type Department Care Team (Late st Contact Info) Description 12/05/2024 1:00 PM CDT Office Visit [facility] - Neurology [address] [place] [address], [place] [phone] Sean Raymundo, DO [address] [place] [address] [place] [phone] documented as of this encounter Procedures Procedure Name Priority Date/Time Associated Diagnosis Comments XR ABDOMEN KUB STAT 04/21/2024 5:41 PM BIOLOGICS SPECIALIST Attention to G-tube (HCC) documented in this encounter Results * XR Abdomen Kub (04/21/2024 5:41 PM BIOLOGICS SPECIALIST) Anatomical Region Laterality Modality Abdomen Digital Radiogra phy 04/21/2024 5:50 PM BIOLOGICS SPECIALIST Impressions 04/21/2024 6:02 PM BIOLOGICS SPECIALIST IMPRESSION: 1.Nonobstructive bowel gas pattern. 2.G-tube in place. No extraluminal extravasation of contrast Report dictated by Virgil Clark MD I, Nj Escobar MD have personally reviewed and interpreted this examination/study. > Interpreting Provider: Nj Escobar MD on 04/21/2024 6:02 PM Narrative 04/21/2024 6:02 PM BIOLOGICS SPECIALIST PROCEDURE: ??XR ABDOMEN KUB, DATE/TIME OF EXAM: ??04/21/2024 5:41 PM, LOCATION ??[facility] INDICATION: Z43.1: Attention to G-tube (HCC) [...] DATE/TIME OF EXAM: 04/21/2024 5:41 PM, LOCATION [facility] INDICATION: Z43.1: Attention to G-tube (HCC) [...] Del Rosario MD DIAGNOSTIC IMAG ING ORDERABLES documented in this encounter Visit Diagnoses Diagnosis Attention to G-tube (HCC)- Primary Attention to gastrostomy Irritation around percutaneous endoscopic gastrostomy (PEG) tube site (HCC) Other gastrostomy complication Tracheostomy care (HCC) Attention to tracheostomy documented in this encounter Administered Medications Inactive Administered Medications - up to 3 most recent administrations Medication Order MAR Action Action Date Dose Rate Site acetaminophen (Tylenol) solution 650 mg 650 mg, Enteral Tube, NOW, 1 dose, On 04/21/24 at 1915, Patient preference for lesser PRN pain meds [...] first unless patient cannot tolerate oral intake $ Given 04/21/2024 7:40 PM BIOLOGICS SPECIALIST 650 mg G Tube iopamidol (Isovue 300) 61 % contrast Tube, CONTRAST ONCE, Starting on 04/21/24 at 1719, Until 04/21/24 at 2201, Give 30ml per G tube when XRAY present at bedside for KUB. $ Given - Contrast 04/21/2024 5:35 PM BIOLOGICS SPECIALIST 30 mL documented in this encounter Active and Recently Administered Medications Times are shown in BIOLOGICS SPECIALIST. Scheduled Medication Order 04/19/2024 04/20/2024 04/21/2024 acetaminophen (Tylenol) solution 650 mg (COMPLETED) 650 mg, Enteral Tube, NOW, 1 dose, On 04/21/24 at 1915, Patient preference for lesser PRN pain meds [...] first unless patient cannot tolerate oral intake 1940 ($ Given - Prov ider: Chhaya Yung RN) iopamidol (Isovue 300) 61 % contrast Tube, CONTRAST ONCE, Starting on 04/21/24 at 1719, Until 04/21/24 at 2201, Give 30ml per G tube when XRAY present at bedside for KUB. 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
--- OUTSIDE RECORDS SUMMARY | 2024-06-08 05:29 | XMS_ITS | Encounter Summary ---
Author Organization [facility] Address [address] [place] [address] Care Team Providers Care Assessment Services Manager Name Role Phone Elizabeth Sullivan RN Unavailable Dany Monsivais MD Primary Care Provider [phone] Reason for Visit * Reason Comments POST-OP PROBLEM Pt BIBEMS from [facility] after staff found patient's G-tube dislodged from abdomen this morning. Staff said they went into patient's room and saw it laying on his stomach, appeared to not have had the cuff inflated. Pt had G-tube placed yesterday at [facility]. Pt has hx of stroke with ongoing left sided deficits; A&Ox2 at baseline; chronic trach, paredes, and g-tube. VSS. Encounter Details Date Type Department Care Team (Late st Contact Info) Description 12/22/2023 8:49 AM CDT - 12/22/2023 11:55 AM CDT Emergency [facility] EMERGENCY DEPARTMENT [address] [place] [address] Leonardo Hanson MD [address] [place] [address] Dislodged gastrostomy tube (Primary Dx); History of CVA (cerebrovascular accident); Severe protein-calorie malnutrition (HCC) Discharge Disposition: Retirement Facility Social History Tobacco Use Types Packs/Day Years [...] and heating? Not hard at all 06/19/2023 [facility] [employer] - Occupational Stress [...] place to sleep or slept in a fpc (including now)? No 06/19/2023 Sex and Gender Information Value Date Recorded Sex Assigned at Not on file Gender Identity Not on file Sexual Orientation Not on file documented as of this encounter Last Filed Vital Signs Vital Sign Reading Time Taken Comments Blood Pressure 154/92 12/22/2023 11:00 AM CDT Pulse 77 12/22/2023 11:00 AM CDT Temperature 36.7 ??C (98.1 ??F) 12/22/2023 8:57 AM CD T Respiratory Rate 16 12/22/2023 11:00 AM CDT Oxygen Saturation 94% 12/22/2023 11:00 AM CDT Inhaled Oxygen Concentration - - Weight 77.1 kg (170 lb) 12/22/2023 8:57 AM CDT Height 175.3 cm (5' 9 ) 12/22/2023 8:57 AM CDT Body Mass Index 25.1 12/22/2023 8:57 AM CDT documented in this encounter Functional [...] this encounter Discharge Instructions * Discharge Instructions* Ankur Coombs DO - 12/22/2023 10:16 AM CDT You were seen at the [facility] Emergency Department for displaced G-tube. The studies obtained during this visit showed replacement of tube with correct positioning on x-ray. You should contact your primary doctor within 24-48 hours to discuss this visit. Return to [facility] Emergency Department for displacement of G-tube, fevers, chills, nausea, vomiting. documented in this encounter Medications at Time [...] as of this encounter Progress Notes * Tamie Cavanaugh MSW - 12/22/2023 11:09 AM CDT Facility Transfer Note Level of Care: SNF Payor Source: Medicaid Facility Name: (include name of person confirming admission): Actual discharge provider: Massiel [facility] [place] (formerly Cleve Delvalle [facility]) [place] Made Aware of Special Needs (if applicable): RN Call Report to:[phone] Fax D/C Orders to:did not request Transportation (company and number): [employer] [phone] Certificate of Medical Necessity rationale: trach, bed bound, amputation, cognitive impairment Date/time of transfer: 12/22/2023 1130am Accepting MD and contact #: return to SNF Completed and Signed [id number] (if applicable): n/a Physician signed: N/A Family/Other Notified of Transfer (name/phone): ED RN to contact Authorization Skilled Care: Authorization for Transportation: Verified Qualifying Stay(Skilled Only, 3 consecutive days): NOT APPLICABLE Present hospitalization: N/A Past 30 days: N/A Patient discharged to SNF under Medicare SNF 3-day waiver? No Comments: .Facesheet, CMN, full transfer printout and number for report to ED RN. No further needs at time of transfer. Name/Phone number: CLARITA Knight .ED [employer] [phone] documented in this encounter ED Notes * Yelena Duncan, ALFRED - 12/22/2023 11:11 AM CDT Patient report given to ALFRED Rangel at patient facility. Answered all questions, no concerns from nurse. Will turnover care at this time. Transport set up to pickup patient at 1130. * Leonardo Hanson MD - 12/22/2023 9:13 AM CDT ED Attending Note Patient seen as a team with the resident, Dr Coombs, who has also contributed to this note. History: Bi Tabor is a 63 year old male is presenting to the ED BIBEMS for post-op problem. EMS states that the pt's G-tube was replaced at [facility] yesterday and today the pt woke up with the tube dislodged with the cuff not inflated. Pt has a PMHx of stroke with neurological deficits including left-sided deficits and aphasia. Pt has a chronic G-tube in place. HPI is limited due to acuity of condition. History provided by EMS. Past Medical History: Diagnosis Date Cerebrovascular disease [...] on file Tobacco Use Smoking status: Former Packs/day: 1.00 Years: 15.00 Additional pack years: 0.00 Total pack years: 15.00 Types: Cigarettes Smokeless tobacco: Never Vaping Use Vaping Use: Never used Substance and Sexual Activity Alcohol use: No [...] No Stress: No Stress Concern Present (06/19/2023) [employer] [facility] [employer] [facility] - Occupational Stress Questionnaire Feeling of Stress : Not at all Housing Stability: Low Risk (06/19/2023) Housing Stability Vital Sign Unable to Pay for Housing in the Last Year: No Number of Places Lived in the Last Year: 1 Unstable Housing in the Last Year: No Review of Systems: Review of Systems Unable to perform ROS: Mental acuity Patient Vitals for the past 6 hrs: Temp Pulse Resp BP 12/22/23 1100 -- 77 16 154/92 12/22/23 0857 98.1 ??F (36.7 ??C) 80 15 147/97 Exam: Physical Exam Vitals and nursing note reviewed. Constitutional: General: He is not in acute distress. HENT: Head: Normocephalic and atraumatic. Mouth/Throat: Lips: [place]. Mouth: Mucous membranes are moist. Eyes: Extraocular Movements: Extraocular movements intact. Conjunctiva/sclera: Conjunctivae normal. Pupils: Pupils are equal, round, and reactive to light. Cardiovascular: Rate and Rhythm: Normal rate and regular rhythm. Pulses: Radial pulses are 2+ on the right side and 2+ on the left side. Dorsalis pedis pulses are 2+ on the right side and 2+ on the left side. Heart sounds: No murmur heard. No friction rub. No gallop. Pulmonary: Effort: Pulmonary effort is normal. No respiratory distress. Breath sounds: Normal breath sounds. No wheezing. Abdominal: General: Abdomen is flat. Bowel sounds are normal. There is no distension. Palpations: Abdomen is soft. Tenderness: There is no abdominal tenderness. Comments: Gastric tube site with scant blood without tube in place. What appears to be a mature track. Musculoskeletal: General: No deformity. Normal range of motion. Cervical back: Normal range of motion and neck supple. Skin: General: Skin is warm and dry. Findings: No bruising. Neurological: Mental Status: He is alert and oriented to person, place, and time. Comments: MARADIAGA spontaneously and equally. Nonverbal. Psychiatric: Mood and Affect: Mood normal. Behavior: Behavior normal. Medical Decision Makin. 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 FINDINGS: Gastrostomy tube tip overlies the midline at approximately the L1 level at approximately the expected position of the body of the stomach. Intraluminal contrast opacifies the distal stomach following contrast administration through the indwelling gastrostomy tube, without evidence of contrast extravasation. The colon is partially opacified with hyperdense material, presumably retained contrast. Moderate colonic stool load is present. No findings to suggest bowel obstruction. No abnormal calcifications are seen. IMPRESSION: Intraluminal opacification of the distal stomach following contrast administration through the indwelling gastrostomy tube. No readily apparent contrast extravasation beyond the expected outlines of the visualized portion of the stomach. Report dictated by Ashu Welch M.D. (group president) 12/22/2023 10:11 AM I, Hermes Lynn MD have personally reviewed and interpreted this examination/study. > Interpreting Provider: Hermes Lynn MD on 12/22/2023 10:20 AM ED course: The patient's Oxygen Saturation Monitor was interpreted by me. The reading was 94%. The patient wason RA at the time of the reading. This is interpreted as normal. 9:10 AM- G-tube has been replaced at this time. 10:11 AM- Called Radiology for reading on XR Abdomen Kub. They confirm that the G-tube is in place properly. Will discharge pt. 10:14 AM: I have reviewed his diagnostic findings and he has had an opportunity to ask me any questions he has about care, diagnosis and discharge plan. Patient is comfortable with the discharge plan. He will follow up as directed and will return to the ER if his condition worsens or he develops other urgent concerns. Consult No Procedure done at this time No Ultrasound done at this time No Orders Placed This Encounter XR Abdomen Kub diatrizoate meglumine & sodium (Gastroview; Gastrografin) solution iopamidol (Isovue 300) contrast ADS Med Medications diatrizoate meglumine & sodium (Gastroview; Gastrografin) solution ( Oral Not Administered 12/22/23 1109) iopamidol (Isovue 300) contrast ADS Med (10 mL $ Given - Contrast 12/22/23 110) Clinical Impression: 1. Dislodged gastrostomy tube 2. History of CVA (cerebrovascular accident) 3. Severe protein-calorie malnutrition (HCC) Disposition: Discharge By signing my name below, I, Vilma Sandoval, attest that this documentation has been prepared under the direction and in the presence of Dr. Hanson. Signed: Laisha Hickey. I, Dr. Hanson, personally performed the services described in this documentation. All medical record entries made by the scribe were at my direction and in my presence. I have reviewed the chart and agree that the record reflects my personal performance and is accurate and complete. * Yelena Duncan RN - 12/22/2023 8:57 AM CDT Pt BIBEMS from [facility] after staff found patient's G-tube dislodged from abdomen this morning. Staff said they went into patient's room and saw it laying on his stomach, appeared to not have had the cuff inflated. Pt had G-tube placed yesterday at [facility]. Pt has hx of stroke with ongoing left sided deficits; A&Ox2 at baseline; chronic trach, paredes, and g- tube. VSS. Past Medical History: Diagnosis Date Cerebrovascular disease [...] polypectomy, Right Maxillary Antrostomy, Rihjy Anterior Ethmoidectomy * Elmo Tena, ALFRED - 12/22/2023 8:49 AM CDT Bed: AC32 Expected date: Expected time: Means of arrival: Comments: 63m A/Ox2 baseline, bed bound, removed g-tube documented in this encounter Plan of Treatment Upcoming Encounters Date Type Department Care Team (Late st Contact Info) Description 12/05/2024 1:00 PM CDT Office Visit [facility] - Neurology [address] [place] [address], [facility] [place] [id number] Sean Raymundo, [address] [place] [address] [place] [id number] documented as of this encounter Procedures Procedure Name Priority Date/Time Associated Diagnosis Comments XR ABDOMEN KUB STAT 12/22/2023 10:01 AM CDT Dislodged gastrostomy tube documented in this encounter Results * XR Abdomen Kub (12/22/2023 10:01 AM CDT) Anatomical Region Laterality Modality Abdomen Radiographic Cynthia ging 12/22/2023 10:0 9 AM CDT Impressions 12/22/2023 10:20 AM CDT IMPRESSION: Intraluminal opacification of the distal stomach following contrast administration through the indwelling gastrostomy tube. No readily apparent contrast extravasation beyond the expected outlines of the visualized portion of the stomach. Report dictated by Ashu Welch M.D. (group president) 12/22/2023 10:11 AM IHermes MD have personally reviewed and interpreted this examination/study. > Interpreting Provider: Hermes Lynn MD on 12/22/2023 10:20 AM Narrative 12/22/2023 10:20 AM CDT PROCEDURE: ??XR ABDOMEN KUB, DATE/TIME OF EXAM: ??12/22/2023 10:02 AM, LOCATION ??[facility] INDICATION: T85.528A: Dislodged gastrostomy tube ADDITIONAL CLINICAL INFORMATION: Ordering Provider Reason For Exam: ??G tube replaced COMPARISON: Abdominal radiograph 02/23/2023 TECHNIQUE: Supine frontal radiograph of the abdomen. FINDINGS: Gastrostomy tube tip overlies the midline at approximately the L1 level at approximately the expected position of the body of the stomach. Intraluminal contrast opacifies the distal stomach following contrast administration through the indwelling gastrostomy tube, without evidence of contrast extravasation. The colon is partially opacified with hyperdense material, presumably retained contrast. Moderate colonic stool load is present. No findings to suggest bowel obstruction. No abnormal calcifications are seen. Procedure Note Hermes Lynn MD - 12/22/2023 PROCEDURE: XR ABDOMEN KUB, DATE/TIME OF EXAM: 12/22/2023 10:02 AM, LOCATION [facility] INDICATION: T85.528A: Dislodged gastrostomy tube ADDITIONAL CLINICAL INFORMATION: Ordering Provider Reason For Exam: G tube replaced COMPARISON: Abdominal radiograph 02/23/2023 TECHNIQUE: Supine frontal radiograph of the abdomen. FINDINGS: Gastrostomy tube tip overlies the midline at approximately the L1 levelat approximately the expected position of the body of the stomach. Intraluminal contrast opacifies the distal stomach following contrast administration through the indwelling gastrostomy tube, without evidenceof contrast extravasation. The colon is partially opacified with hyperdense material, presumably retained contrast. Moderate colonic stool load is present. No findings to suggest bowel obstruction. No abnormal calcifications are seen. IMPRESSION: Intraluminal opacification of the distal stomach following contrast administration through the indwelling gastrostomy tube. No readilyapparent contrast extravasation beyond the expected outlines of the visualized portion of the stomach. Report dictated by Ashu Welch M.D. (group president) 12/22/2023 10:11 AM I, Hermes Lynn MD have personally reviewed and interpreted this examination/study. > Interpreting Provider: Hermes Lynn MD on 12/22/2023 10:20 AM Leonardo Hanson MD DIAGNOSTIC IMAGING O RDERABLES documented in this encounter Visit Diagnoses Diagnosis Dislodged gastrostomy tube- Primary Attention to gastrostomy History of CVA (cerebrovascular accident) Transient ischemic attack (TIA), and cerebral infarction without residual deficits Severe protein-calorie malnutrition (HCC) Other severe protein-calorie malnutrition documented in this encounter Administered Medications Inactive Administered Medications - up to 3 most recent administrations Medication Order MAR Action Action Date Dose Rate Site iopamidol (Isovue 300) contrast ADS Med 1 dose, Starting on Marian 12/22/23 at 0944, Until Marian 12/22/23 at 1109, Created by cabinet override $ Given - Contrast 12/22/2023 11:09 AM CDT 10 mL documented in this encounter Active and Recently Administered Medications Times are shown in CDT. Scheduled Medication Order 12/20/2023 12/21/2023 12/22/2023 diatrizoate meglumine & sodium (Gastroview; Gastrografin) solution Oral, ONCE, 1 dose, On Marian 12/22/23 at 0930, Give via G tube prior to KUB 1109 (Not Administer ed - Provider: Yelena Duncan, ALFRED - Reason: Medication not available) No Frequency Medication Order 12/20/2023 12/21/2023 12/22/2023 iopamidol (Isovue 300) contrast ADS Med (COMPLETED) 1 dose, Starting on Marian 12/22/23 at 0944, Until Marian 12/22/23 at 1109, Created by cabinet override 1109 ($ Given - Cont rast - Provider: Yelena Duncan, RN) documented in this encounter Additional Health Concerns Infection Onset Date Last Indicated Resolved Time 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
--- OUTSIDE RECORDS SUMMARY | 2024-06-08 05:29 | XMS_ITS | Encounter Summary ---
Author Organization [facility] Health Address [address] [place] [address] Care Team Providers Care [employer] Manager Name Role Phone Elizabeth Sullivan RN Unavailable [phone] Dany Monsivais MD Primary Care Provider [phone] Reason for Referral * Evaluate & Treat (Routine) - Closed Specialty Diagnoses / Procedures Referred By Anabella dan Referred To Contact Neurology Diagnoses Seizure disorder (HCC) Brian Lawrence MD [address] [place] [phone] [facility] [address] [address] Referral ID Status Reason Start Date Expiration Date V isits Requested Visits Authorized [id number] Closed Discharge Follow-up 02/20/2024 02/19/2025 1 1 Reason for Visit * Auth/Cert (Routine) Specialty Diagnoses / Procedures Referred By Contac t Referred To Contact Diagnoses Seizure Referral ID Status Reason Start Date Expiration Date Visits Re quested Visits Authorized [id number] 1 1 Encounter Details Date Type Department Care Team (Latest Contact Info) Description 02/17/2024 12:37 AM CDT - 02/20/2024 5:52 PM CDT Hospital Encounter [facility] ACUTE [address] [place] [address] Humberto Echeverria MD [address] [facility] [address] [place] [address] Brian Lawrence MD [address] [facility] [address] [place] [address] Leatha Vinson MD [address] [facility] [address] [place] [address] Neurology Discharge Disposition: Nursing Facility:Medicaid Social History Tobacco Use Types Packs/Day Years [...] and heating? Not hard at all 06/19/2023 [facility] - Occupational Stress [...] place to sleep or slept in a jail (including now)? No 06/19/2023 Sex and Gender Information Value Date Recorded Sex Assigned at Not on file Gender Identity Not on file Sexual Orientation Not on file documented as of this encounter Last Filed Vital Signs Vital Sign Reading Time Taken Comments Blood Pressure 162/102 02/20/2024 9:47 AM CDT Pulse 86 02/20/2024 4:58 PM CDT Temperature 36.3 ??C (97.3 ??F) 02/20/2024 5:00 PM CD T Respiratory Rate 18 02/20/2024 4:40 AM CDT Oxygen Saturation 96% 02/20/2024 4:58 PM CDT Inhaled Oxygen Concentration 28% 02/20/2024 4 :58 PM CDT Weight 77.1 kg (170 lb) 02/17/2024 12:49 AM CDT Height 175.3 cm (5' 9 ) 02/17/2024 12:49 AM CDT Body Mass Index 25.1 02/17/2024 12:49 AM CDT documented in this encounter Functional [...] 02/17/2024 documented as of this encounter Discharge Summaries * Leatha Vinson MD - 02/20/2024 1:49 PM CDT Images from the original note were not included. Neurology Physician Discharge Summary Patient ID: Bi Tabor [id number] 64 year old 1960 Admit date: 02/17/2024 Discharge date: 02/20/2024 Admitting Physician: Humberto Payan MD Discharge Physician: Leatha Vinson MD Present on Admission: Severe protein-calorie malnutrition (HCC) Discharge Diagnoses:Seizure Admission Condition: stable Discharged Condition: good Consults: IP CONSULT TO RESPIRATORY IP CONSULT TO NUTRITIONAL SERV Hospital Course: Bi Tabor is a 64 year old male with history of intractable epilepsy (L temporo-occipital lobes)CHRF s/p trach and PEG, HTN, HLD, PAD s/p L AKA, multiple strokes and vascular dementia, who presented as a direct transfer from OSH for status epilepticus. Was found to be seizing at his nursing facility for over 40 minutes. Patient's seizures semiologies consist of staring off spells, head shaking, or convulsions. He was restarted on his home medications--Keppra 2 g bid, Vimpat 200 mg bid, valproic caid 1,250 mg qid, clobazam 10 mg bid. Patient was put on cEEG, showed right frontal and temporal epileptiform discharges which improved during the course of the epoch with a decreased occurrenceof interictal abnormalities. Patient's mental status returned back to baseline. On 02/18, patient's potassium was also high at 5.6. Patient was administered IV dextrose with insulin and potassium thereafter normalized to 4.5. EKG was obtained which did not show significant findings. To follow outpatient/PCP: Will follow up with neurology for seizure medication management. Significant Diagnostic Studies: Labs this admission: CBC: Recent Labs Lab Units 02/20/24 0555 02/19/24 1651 02/18/24 0341 02/17/24 1147 WBC x10E9/L 6.6 5.9 5.4 5.0 RBC x10E12/L 3.47* 3.46* 3.69* 3.72* HGB g/dL 11.4* 11.3* 11.9* 12.1* HCT % 34.6* 35.8* 36.0* 36.9* BMP: Recent Labs Lab Units 02/20/24 0555 02/19/24 1651 02/19/24 0200 02/18/24 0341 02/17/24 0411 NA mmol/L 140 137 140 139 140 CL mmol/L 107 109* 113* 109* 108* CO2 mmol/L 26 22 20* 28 22 BUN mg/dL 12 12 17 18 10 CREATININE mg/dL 0.55* 0.55* 0.56* 0.50* 0.55* CALCIUM mg/dL 9.3 8.9 9.1 9.1 9.3 Magnesium: No results for input(s): MG in the last 168 hours. Phosphorus: Recent Labs Lab Units 02/20/24 0555 02/19/24 0200 02/18/24 [address]402/17/24 0411 PHOS mg/dL 3.0 2.6* 2.7* 3.4 Coagulation: No results for input(s): PT , INR , APTT in the last 168 hours. Endocrine: No results for input(s): TSH , A1C in the last 168 hours. LFTs: No results for input(s): AST , ALT , TBILI , DBILI , IBILI , ALB , GGT , TP in the last 168 hours. Invalid input(s): ALP Imaging: XR Abdomen Kub Result Date: 12/22/2023 IMPRESSION: Intraluminal opacification of the distal stomach following contrast administration through the indwelling gastrostomy tube. No readily apparent contrast extravasation beyond the expected outlines of the visualized portion of the stomach. Report dictated by Ashu Welch M.D. (radiology asst) 12/22/2023 10:11 AM I, Hermes Lynn MD have personally reviewed and interpreted this examination/study. > Interpreting Provider: Hermes Lynn MD on 12/22/2023 10:20 AM XR NECK SOFT TISSUE Result Date: 11/18/2023 IMPRESSION: Patent airway without prevertebral soft tissue swelling or definite epiglottic enlargement. No definite tracheostomy tube displacement identified.. Report dictated by Herminio Ivy MD (radiology asst). IHermes MD have personally reviewed and interpreted this examination/study. > Interpreting Provider: Hermes Lynn MD on 11/18/2023 8:13 AM IR PERC G TO GJ TUBE EXCHANGE Result Date: 09/15/2023 Impression: Successful conversion of the existing makeshift 18 Central African JELLY Robert gastrostomy catheter for a new 18-Central African x 45 cm balloon-retention gastrojejunostomy catheter under fluoroscopic guidance, as described above. Note: The catheter can be used now. Flush the catheter with 30 mL of water befo re and after each use. Recommend liquid formulation of medications. Avoid crushed pills to maintainpatency. Please contact the pharmacy for better formulation if any pills need to be administered through the catheter. In case of abdominal distension or discomfort, stop feeding and call the IR service. > Interpreting Provider: Mariano Cullen MD on 09/15/2023 4:03 PM FL SWALLOWING FUNCTION STUDY Result Date: 08/26/2023 IMPRESSION: Fluoroscopy was provided for a procedure performed by Speech Therapy. Please see the Speech Therapy report for interpretation. > Dictated by Sierra Lyman M.D. - Diagnostic Emergency Vehicle Operations Instructor. I, John Stubbs MD have personally reviewed and interpreted this examination/study. > Interpreting Provider: John Stubbs MD on 08/26/2023 8:[address] HEAD WO CONTRAST Result Date: 06/20/2023 IMPRESSION: 1.No acute intracranial process. 2.Chronic small vessel ischemic disease of the brain with cerebral volume loss. 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 Reportdictated by Chai Mcneil DO (Emergency Vehicle Operations Instructor). IJason MD have personally reviewed andinterpreted this examination/study. > Interpreting Provider: Jason Sanchez MD on 06/20/2023 1:[address] CHEST ABDOMEN PELVIS W CONT Result Date: 06/10/2023 Impression: 1.Bilateral lower lob atelectasis as well as patchy groundglass opacities in bilateral lung and associated bronchial wall thickening, again findings are suggestive of aspiration/retained secretion. Small left pleural effusion. 2.A percutaneous gastrojejunostomy tube with a balloon in the stomach, again study anterior abdominal wall, and tip of the tube is in the proximal jejunum. No evidence of inflammatory changes of tube entrance. 3.No evidence of free air or free fluid in the abdomen and pelvis. > Dictated by Justin Kelly MD (radiology asst). I, Bebo Kuo MD have personally reviewed and interpreted this examination/study. > Interpreting Provider: Bebo Kuo MD on 06/10/2023 7:[address] HEAD WO CONTRAST Result Date: 06/09/2023 IMPRESSION: 1.No acute intracranial abnormality. 2.Chronic findings as described. > InterpretingProvider: Georgia Lees MD, PhD on 06/09/2023 10:59 PM XR CHEST 1VW PORTABLE Result Date: 06/09/2023 IMPRESSION: Very mild left basilar haziness possibly due to small left pleural effusion with adjacent atelectatic changes. > Interpreting Provider: Hermes Lynn MD on 06/09/2023 12:00 PM IR PERC G TO GJ TUBE EXCHANGE Result Date: 02/25/2023 Impression: Successful exchange of the existing 18 Central African gastrojejunostomy catheter for a new 18 Central African gastrojejunostomy catheter under fluoroscopic guidance, as described above. Note: The cathetercan be used now. Flush the catheter with 10 mL of saline three times daily and after each use. Avoid crushed pills to maintain patency. Please contact the pharmacy for better formulation if any pillsneed to be administered through the catheter. In case of abdominal distension or discomfort, stop feeding and call the IR service. I, Dr. Juan Diego Roe, was present and performed/supervised the entire procedure. > Interpreting Provider: Juan Diego Roe DO on 02/25/2023 6:12 PM XR ABD OBSTR SERIES W CHEST 1VW Result Date: 02/23/2023 IMPRESSION: 1.Tracheostomy tube and gastrojejunostomy tubes are [...] verification. Report dictated by Ashu Welch M.D. (radiology asst) 02/23/2023 4:31 AM IRachel MD have personally reviewed and interpreted this examination/study. > Interpreting Provider: Rachel Phillips MD on 02/23/2023 9:[address] CHEST ABDOMEN PELVIS WO CONT Result Date: 02/23/2023 Impression: 1.Atelectasis of the lower lobe of [...] verification. > Dictated by Nash Arreola MD (radiology asst). IBebo MD have personally reviewed and interpreted this examination/study. > Interpreting Provider: Bebo Kuo MD on 02/23/2023 8:19 AM Discharge Exam: Physical Exam: Has tracheostomy and PEG tube Exam: Cortical Function Mental Status Opens eyes to voice, follows commands Orientation AxOx0 Language Trach, non verbal Visual Ivan Unable to determine Neglect Unable to determine Cranial Nerves II Pupils 4 mm and bilaterally reactive to light. Fundoscopic exam not performed. VIII Unable to determine III/IV/ Extraocular muscles intact. No diplopia, ptosis, nystagmus or convergence abnormalities noted. IX/X Unable to determine V Unable to determine XI Unable to determine VII No facial palsy noted. XII Unable to determine. Motor Function Movement No abnormalities noted Bulk diminished Tone No abnormalities noted Moves right side 3/5, 0/5 left side Muscle Stretch Reflexes BI TRI BR PAT ACH TOES Right 3 2 3 0 0 Left 3 2 3 AKA AKA AKA Sensory Light Touch Unable to determine Noxious Stimuli withdraws Temperature Not tested Pallesthesia Not tested Cerebellar FNF FREEDOM HKS Right Intact Deferred Deferred Left EARNEST Deferred AKA Gait Deferred Disposition: detention Patient Instructions: Medication List CHANGE how you take these medications valproic acid 250 MG/5ML solution Commonly known as: Depakene 25 mL by Per G Tube route every 6 hours What changed: how much to take CONTINUE taking these medications acetaminophen 325 MG [...] route every 6 hours as needed cloBAZam 10 MG tablet Commonly known as: Onfi Take 1 (one) tablet by mouth 2 times daily famotidine 20 MG tablet Commonly known as: [...] tablet by Enteral Tube route once daily Where to Get Your Medications Information about where to get these medications is not yet available Ask your nurse or doctor about these medications valproic acid 250 MG/5ML solution Discharge Instructions Dear Mr. Tabor, You were admitted to [facility] for seizure. While we know you have seizures, you had a very longseizure that lasted 40 minutes. You have had a history of seizures that are hard to control. We monitored you while restarting your home medications and you returned back to your baseline. You also had high potassium and we gave you some fluids with dextrose and insulin. Your potassium level then normalized. We also got an EKG to check your heart function and it was normal. We have also scheduledyou to follow up at our neurology clinic. They will make any adjustments to your seizure medications if necessary. They will be giving a call. detention instructions: Please give patient the following medications for his anti-seizure regimen valproic acid 1,250mg QID Clobazam 10mg BID Vimpat 200mg BID Keppra 2g BID Please note the following instructions: DISCHARGE MEDICATIONS: Below were changes made to your home medications: New meds started: Current Discharge Medication List Home meds to stop: Current Discharge Medication List Home meds that have changed: Current Discharge Medication List CONTINUE these medications which have CHANGED Details valproic acid (Depakene) 250 MG/5ML solution 25 mL by Per G Tube route every 6 hours We have continued your other home medications. If you have any questions about your medications, please be sure to ask the pharmacy when you garbage pick up man your prescription. You may also call your primary provider if you are uncertain if you should be taking your medication. CONCERNING SYMPTOMS: When to call your healthcare provider: Call your healthcare provider immediately if you have any of the following: - Dizziness - Weakness in arms/legs - Fever of 101??F or higher - Shaking chills - Intractable nausea and vomiting - Severe headache - Confusion/altered mental status - Seizures (convulsions) If you are unable to reach your primary provider, please go to the nearest emergency room or call EMS ([phone]). FOLLOW-UP APPOINTMENTS: It is essential that you keep all of your follow-up appointments and go to your doctors appointments as scheduled. If a follow-up with your primary care provider has not been scheduled, you need to schedule an appointment to follow- up on your hospitalization within 1-2 weeks. If there is a conflict, please call the clinic ahead of time and reschedule the appointment. If you need to call [facility] for any reason, you may reach us at [phone] and dial [phone] for the banbury machine operator. It was a pleasure taking care of you and we wish you all the best. I told pt in clear terms that he cannot drive unless he is seizure free for 6 months and is licensed to drive by the [facility]. I also told that the patient is forbidden to take deep tub baths, operate open machinery, climb to high places, swim alone, use open fire or use hot objects Kind regards, Your Hospital Team [address] [address] Xiomara Boateng DO Signed: Xiomara Boateng DO 02/20/2024 1:50 PM PGY-1 Attending Note: I have seen and examined the patient with the resident. I confirm the history, physical findings, assessment, and plan as documented. Leatha Vinson MD., PhD. documented in this encounter Discharge Instructions * Discharge Instructions* Xiomara Boateng DO - 02/20/2024 10:47 AM CDT Images from the original note were not included. Dear Mr. Tabor, You were admitted to [facility] for seizure. While we know you have seizures, you had a very longseizure that lasted 40 minutes. You have had a history of seizures that are hard to control. We monitored you while restarting your home medications and you returned back to your baseline. You also had high potassium and we gave you some fluids with dextrose and insulin. Your potassium level then normalized. We also got an EKG to check your heart function and it was normal. We have also scheduledyou to follow up at our neurology clinic. They will make any adjustments to your seizure medications if necessary. They will be giving a call. detention instructions: Please give patient the following medications for his anti-seizure regimen valproic acid 1,250mg QID Clobazam 10mg BID Vimpat 200mg BID Keppra 2g BID Please note the following instructions: DISCHARGE MEDICATIONS: Below were changes made to your home medications: New meds started: Current Discharge Medication List Home meds to stop: Current Discharge Medication List Home meds that have changed: Current Discharge Medication List CONTINUE these medications which have CHANGED Details valproic acid (Depakene) 250 MG/5ML solution 25 mL by Per G Tube route every 6 hours We have continued your other home medications. If you have any questions about your medications, please be sure to ask the pharmacy when you garbage pick up man your prescription. You may also call your primary provider if you are uncertain if you should be taking your medication. CONCERNING SYMPTOMS: When to call your healthcare provider: Call your healthcare provider immediately if you have any of the following: - Dizziness - Weakness in arms/legs - Fever of 101??F or higher - Shaking chills - Intractable nausea and vomiting - Severe headache - Confusion/altered mental status - Seizures (convulsions) If you are unable to reach your primary provider, please go to the nearest emergency room or call EMS ([phone]). FOLLOW-UP APPOINTMENTS: It is essential that you keep all of your follow-up appointments and go to your doctors appointments as scheduled. If a follow-up with your primary care provider has not been scheduled, you need to schedule an appointment to follow- up on your hospitalization within 1-2 weeks. If there is a conflict, please call the clinic ahead of time and reschedule the appointment. If you need to call [facility] for any reason, you may reach us at [phone] and dial 0 for the banbury machine operator. It was a pleasure taking care of you and we wish you all the best. Kind regards, Your Hospital Team [address] [address] Xiomara Boateng DO documented in this encounter Medications at Time [...] 02/20/2024 05/15/2024 documented as of this encounter Progress Notes * Christina Mosley RN - 02/20/2024 5:34 PM CDT Patient stable for discharge, shows no signs of acute resp distress at discharge, shilly intact andplaces on venturi mask for transport to the facility, care turned over to ems at discharge * Romana Laird MSW - 02/20/2024 2:34 PM CDT Facility Transfer Note Level of Care: Actual level of care at discharge: Correction - Medicaid Facility Name: (include name of person confirming admission): [facility] Made Aware of Special Needs (if applicable): N/A RN Call Report to: [phone] Fax D/C Orders to: [phone] Transportation (company and number): [facility] Certificate of Medical Necessity rationale: Complete Date/time of transfer: 02/20/2024 at 5pm Accepting MD and contact #: Dr. Monsivais Completed and Signed [id number] (if applicable): N/A Family/Other Notified of Transfer (name/phone): Adriane [phone] Authorization Skilled Care: N/A Authorization for Transportation: N/A Verified Qualifying Stay(Skilled Only): NOT APPLICABLE Comments: Name/Phone number: Romana CLARITA Laird [phone] * Clover Gamez RCP - 02/20/2024 9:53 AM CDT Trach bag in room for emergency use with the following supplies: Obturator from indwelling trach, Extra trach tubes (same size and one size smaller), Manual resuscitation bag w/ mask, Suction catheter kit (appropriate size for trach), 10 ml syringe, Sterile 4x4 gauze sponges, Tape and Decannulation Risk paper in supply bag. * Luis Antonio Martinez RCP - 02/20/2024 5:08 AM CDT Trach care completed. * Beverly Lerma RN - 02/20/2024 1:23 AM CDT Problem: Fall Risk Goal: Fall risk and fall related injury risk are minimized (interventions related to the fall risk can be found in the flowsheet documentation) Outcome: Progressing Problem: Pain/Discomfort Goal: Patient exhibits reduced pain/discomfort as evidenced by pain scores Outcome: Progressing Goal: Patient uses pharmacological and non-pharmacological pain management strategies. Outcome: Progressing Goal: Patient verbalizes acceptable level of pain relief and ability to engage in desired activity. Outcome: Progressing Problem: Skin Integrity Goal: Skin integrity is maintained or improved Outcome: Progressing Problem: Seizures Goal: Seizures are under control or absent Outcome: Progressing Problem: Functional: Swallowing difficulty Goal: Enteral/parenteral nutrition prescription will be consistent with estimated needs Outcome: Progressing * Luis Antonio Martinez RCP - 02/19/2024 10:03 PM CDT Trach care complete. Patient suctioned. Trach mask replaced with new one and new gauze placed. Inner cannula replaced with new one. * Baylee Tay OT - 02/19/2024 8:33 AM CDT [facility] Department of Physical Medicine & Rehabilitation Progress Note Patient: Bi Tabor [facility] Record Number: [id number] Date of : 1960 Age: [age] year old 02/19/24 0831 Missed Visit Missed Visit No Activity Order OT orders received. Chart reviewed. Per chart review of previous admissions, pt is from a NH and dependent at baseline for ADLs and transfers. No skilled OT intervention is indicated at this time. Will d/c from OT caseload. * Dione Ivy, PT - 02/19/2024 8:17 AM CDT [facility] Department of Physical Medicine & Rehabilitation Progress Note Patient: Bi Tabor [facility] Record Number: [id number] Date of : 1960 Age: [age] year old Physical therapy orders received, patient chart reviewed. Per chart review of prior admissions, patient from nursing facility and dependent at baseline for all ADLs. PT at this time to complete orders. * Jennie Fernandes MD - 02/19/2024 7:27 AM CDT [facility] Neurology PROGRESS NOTE Patient: Bi Tabor Sex: male Age: [age] year old Date of : 1960 Date of Admission: 02/17/2024 Date: 02/19/2024 LOS: 0 SUBJECTIVE Interval History: Mental status improved today, Will keep EEG for another day since his EEG looked worse during the last epoch Hospital Course: Bi Tabor is a 64 year old male with history of intractable epilepsy (L tempero-occipital lobes)CHRF s/p trach and PEG, HTN, HLD, PAD s/p L AKA, multiple strokes and vascular dementia, who presents today as a direct transfer from OSH for status epilepticus. Patient has been having multiple seizures including one that lasted 40 minutes in his living facility. He was sent here for continuous EEG monitoring which they did not have at OSH. They completed a routine EEG that did not capture any seizures. Patient's seizures semiologies consist of sating off spells, head shaking, or convulsions. OBJECTIVE Vital Signs: Vitals: 02/18/24 2328 02/19/24 0026 02/19/24 0320 02/19/24 0526 BP: 123/78 123/78 Pulse: 94 95 94 97 Resp: 16 18 16 Temp: 98.1 ??F (36.7 ??C) 98.1 ??F (36.7 ??C) SpO2: 92% 93% 92% 95% Weight: Height: Temp Min: 97 ??F (36.1 ??C) Max: 98.8 ??F (37.1 ??C), Pulse Min: 86 Max: 123, Resp Min: 16 Max: 20,BP Min: 112/73 Max: 148/92 Intake & Output: In: 847 Out: 1300 [Urine:1300] Physical Exam: Exam: Cortical Function Mental Status Opens eyes to voice, follows commands Orientation AxOx0 Language Trach, non verbal Visual Ivan Unable to determine Neglect Unable to determine Cranial Nerves II Pupils 4 mm and bilaterally reactive to light. Fundoscopic exam not performed. VIII Unable to determine III/IV/ Extraocular muscles intact. No diplopia, ptosis, nystagmus or convergence abnormalities noted. IX/X Unable to determine V Unable to determine XI Unable to determine VII No facial palsy noted. XII Unable to determine. Motor Function Movement No abnormalities noted Bulk diminished Tone No abnormalities noted Moves right side 3/5, 0/5 left side Muscle Stretch Reflexes BI TRI BR PAT ACH TOES Right 3 2 3 0 0 Left 3 2 3 AKA AKA AKA Sensory Light Touch Unable to determine Noxious Stimuli withdraws Temperature Not tested Pallesthesia Not tested Cerebellar FNF FREEDOM HKS Right Intact Deferred Deferred Left EARNEST Deferred AKA Gait Deferred Significant Lab Results: K 5.6, P 2.6, BUN/CR 30, LA 2.5, Hb 11.9, Glucose 234, Microbiology: None ASSESSMENT & PLAN Severe protein-calorie malnutrition (HCC) (POA: Yes) #Status Epilepticus -improved - Mental status improved. Back to baseline. - Continue ASM: Keppra 2g BID, Vimpat 200mg BID, valproic acid 1,250mg QID, clobazam 10mg BID - Seizure precautions - Can be discharged to detention tomorrow if social human services assistants and the nursing facility are ok. SNF number. # Hyperkalemia: mild to moderate - Given Dextrose with Insulin IV. - FU on BMP repeat. - FU EKG. #HTN #HLD #CVAs. - Cont metoprolol tartrate 25mg BID, Lipitor 40mg qday, ASA 81 #Nutrition - TF - Nutrition consulted and TF adjusted accordingly. - Stop IV fluids. #Chronic hypoxic respiratory failure s/p trach and PEG - Cont trach collar Discussed Assessment and Plan with Attending Physician, Howard rausch. Jenine Fernandes MD Neurology Resident Associated attestation - Brian Lawrence MD - 02/19/2024 9:03 PM CDT I have verified the documentation of the resident, including all history, exam, and medical decision-making details. I have personally performed a physical exam and have personally reviewed the data to support my medical decision-making as outlined in the resident's note, and I arrive independentlyat the same conclusion. Date of Service: 02/19/24 Brian Lawrence MD * Luis Antonio Martinez RCP - 02/19/2024 12:29 AM CDT Images from the original note were not included. Trach care complete. Patient suctioned. Trach mask replaced with new one and new gauze placed. * Beverly Lerma RN - 02/18/2024 11:30 PM CDT Problem: Fall Risk Goal: Fall risk and fall related injury risk are minimized (interventions related to the fall risk can be found in the flowsheet documentation) Outcome: Progressing Problem: Pain/Discomfort Goal: Patient exhibits reduced pain/discomfort as evidenced by pain scores Outcome: Progressing Goal: Patient uses pharmacological and non-pharmacological pain management strategies. Outcome: Progressing Goal: Patient verbalizes acceptable level of pain relief and ability to engage in desired activity. Outcome: Progressing Problem: Skin Integrity Goal: Skin integrity is maintained or improved Outcome: Progressing Problem: Seizures Goal: Seizures are under control or absent Outcome: Progressing Problem: Functional: Swallowing difficulty Goal: Enteral/parenteral nutrition prescription will be consistent with estimated needs Outcome: Progressing * Luis Antonio Martinez RCP - 02/18/2024 8:20 PM CDT Trach care complete. Trach sx, inner cannula replaced with new one and new gauze placed. * Shilpa Morton RN - 02/18/2024 4:44 PM CDT Problem: Fall Risk Goal: Fall risk and fall related injury risk are minimized (interventions related to the fall risk can be found in the flowsheet documentation) Outcome: Progressing Problem: Pain/Discomfort Goal: Patient exhibits reduced pain/discomfort as evidenced by pain scores Outcome: Progressing Goal: Patient uses pharmacological and non-pharmacological pain management strategies. Outcome: Progressing Goal: Patient verbalizes acceptable level of pain relief and ability to engage in desired activity. 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 Patient has been having multiple seizures including one that lasted 40 minutes in his living facility. He was sent here for continuous EEG monitoring which they did not have at OSH. They completed a routine EEG that did not capture any seizures. Patient's seizures semiologies consist of sating off spells, head shaking, or convulsions. Interval history: Mental status improved today, Will keep EEG for another day since his EEG looked worse during the last epoch Objective: BP 142/96 (BP Location: Right arm, Patient Position: Lying) Pulse (!) 116 Temp 98.2 ??F (36.8 ??C) (Axillary) Resp 18 Ht 1.753 m (5' 9 ) Wt 77.1 kg (170 lb) SpO2 97% Temp (30hrs) Max:98.8 ??F (37.1 ??C) Body mass index is 25.1 kg/m??. Exam: Cortical Function Mental Status Opens eyes to voice, follows commands Orientation AxOx0 Language Trach, non verbal Visual Ivan Unable to determine Neglect Unable to determine Cranial Nerves II Pupils 4 mm and bilaterally reactive to light. Fundoscopic exam not performed. VIII Unable to determine III/IV/ Extraocular muscles intact. No diplopia, ptosis, nystagmus or convergence abnormalities noted. IX/X Unable to determine V Unable to determine XI Unable to determine VII No facial palsy noted. XII Unable to determine. Motor Function Movement No abnormalities noted Bulk diminished Tone No abnormalities noted Moves right side 3/5, 0/5 left side Muscle Stretch Reflexes BI TRI BR PAT ACH TOES Right 3 2 3 0 0 Left 3 2 3 AKA AKA AKA Sensory Light Touch Unable to determine Noxious Stimuli withdraws Temperature Not tested Pallesthesia Not tested Cerebellar FNF FREEDOM HKS Right Intact Deferred Deferred Left EARNEST Deferred AKA Gait Deferred Labs: Results for orders placed or performed during the hospital encounter of 02/17/24 (from the past 24 hour(s)) URINALYSIS REFLEX MICROSCOPIC REFLEX CULTURE Specimen: Urine Cath Straight Result Value Ref Range Color UA Yellow Straw, Yellow Clarity UA Clear Clear Specific [place] UA 1.031 (H) 1.005 - 1.030 pH UA 5.0 5.0 - 8.0 pH Protein UA Negative Negative Glucose UA Negative Negative Ketone UA Trace (Abnormal) Negative Bilirubin UA Negative Negative Blood UA Negative Negative Nitrite UA Negative Negative Leukocyte Esterase Negative Negative Urobilinogen UA 2.0 (Abnormal) Negative mg/dL Comment UA Microscopic not indicated. BASIC METABOLIC PANEL (CALCIUM TOTAL) Result Value Ref Range BUN 18 7 - 26 mg/dL Creatinine 0.50 (L) 0.71 - 1.16 mg/dL Sodium 139 136 - 145 mmol/L Potassium 4.5 3.5 - 4.5 mmol/L Chloride 109 (H) 98 - 107 mmol/L CO2 28 22 - 29 mmol/L Glucose 105 70 - 115 mg/dL Calcium 9.1 8.4 - 10.2 mg/dL Anion Gap 2 (L) 6 - 16 BUN/Creatinine Ratio 36 (H) 7 - 23 Osmolality Calculated 290 275 - 295 mOsm/kg eGFR by CKD-EPI >90 >=90 mL/min/1.73 m2 CBC W/O DIFFERENTIAL Result Value Ref Range WBC 5.4 4.0 - 10.7 x10E9/L RBC Count 3.69 (L) 4.30 - 5.80 x10E12/L Hemoglobin 11.9 (L) 13.3 - 17.5 g/dL Hematocrit 36.0 (L) 38.7 - 51.1 % MCV 97.6 80.0 - 98.0 fL MCH 32.2 26.7 - 33.6 pg MCHC 33.1 31.7 - 36.3 g/dL RDW-CV 13.2 11.3 - 14.8 % Platelet Count 145 (L) 150 - 420 x10E9/L MPV MAGNESIUM BLOOD Result Value Ref Range Magnesium 2.0 1.6 - 2.6 mg/dL PHOSPHORUS BLOOD Result Value Ref Range Phosphorus 2.7 (L) 2.8 - 5.1 mg/dL Assessment and Plan: 64 year old trasferred from OSH for cEEG monitoring after a seizure that lasted 40 minutes. #Status Epilepticus -improved - Mental status improved today, Will keep EEG for another day since his EEG looked worse during the last epoch - Continue ASM: Keppra 2g BID, Vimpat 200mg BID, valproic acid 1,250mg QID, clobazam 10mg BID - Seizure precautions #HTN #HLD #Strokes - Cont metoprolol tartrate 25mg BID, Lipitor 40mg qday, ASA 81 #Nutrition - TF - Nutrition consult - IVF #Chronic hypoxic respiratory failure s/p trach and PEG - Cont trach collar Patient seen with Dr. Lawrence, the neurology attending Based on then note From Dr. Kiko Lau MD Neurology Resident Associated attestation - Brian Lawrence MD - 02/18/2024 9:01 PM CDT I have verified the documentation of the resident, including all history, exam, and medical decision-making details. I have personally performed a physical exam and have personally reviewed the data to support my medical decision-making as outlined in the resident's note, and I arrive independentlyat the same conclusion. Date of Service: 02/18/24 Brian Lawrence MD * Dina Thomas SLP - 02/18/2024 7:51 AM CDT [facility] Department of Physical Medicine & Rehabilitation Progress Note Patient: Bi Tabor [facility] Record Number: [id number] Date of : 1960 Age: [age] year old [employer]IGHT TRAFFIC CONSULTANT consult received and acknowledged. Pt has chronic trach and PEG placement and does not appear to have acute ST needs at this time. F[employer]IGHT TRAFFIC CONSULTANT will d/c orders, please reconsult if needed. Speech-Language Pathologist * Rosette De Anda RN - 02/18/2024 2:17 AM CDT Problem: Fall Risk Goal: Fall risk and fall related injury risk are minimized (interventions related to the fall risk can be found in the flowsheet documentation) Outcome: Progressing Problem: Pain/Discomfort Goal: Patient exhibits reduced pain/discomfort as evidenced by pain scores Outcome: Progressing Goal: Patient uses pharmacological and non-pharmacological pain management strategies. Outcome: Progressing Goal: Patient verbalizes acceptable level of pain relief and ability to engage in desired activity. Outcome: Progressing Problem: Skin Integrity Goal: Skin integrity is maintained or improved Outcome: Progressing Problem: Seizures Goal: Seizures are under control or absent Outcome: Progressing Problem: Functional: Swallowing difficulty Goal: Enteral/parenteral nutrition prescription will be consistent with estimated needs Outcome: Progressing * Susan Webber RCP - 02/17/2024 11:50 PM CDT Trach care done, clean 4x4 gauze and inner cannula. * Zoey Oliveira RN - 02/17/2024 6:03 PM CDT Problem: Pain/Discomfort Goal: Patient exhibits reduced pain/discomfort as evidenced by pain scores Outcome: Progressing Problem: Skin Integrity Goal: Skin integrity is maintained or improved Outcome: Progressing Problem: Seizures Goal: Seizures are under control or absent Outcome: Progressing * Mahogany Reed RN - 02/17/2024 1:52 PM CDT Care Coordination Initial Assessment Expected Discharge Date: 02/20/2024 Expected Discharge Disposition: Transportation at Discharge: Ambulance Prior Level of Care: Correction - Medicaid Prior to Admit Provider: Comments: 64 year old male with history of intractable epilepsy (L tempero- occipital lobes) CHRF s/p trach and PEG, HTN, HLD, PAD s/p L AKA, multiple strokes and vascular dementia, who presents todayas a direct transfer from OS for status epilepticus. Pt lives at [facility] ([place] [facility] care [facility] He is a total care patient. CM called facility and spoke with JOI who stated patient may return to the facility upon discharge. Lives with: Other (Comment) Physical Limitations: Bed Bound Requires Assistance With: Mobility;Housekeeping;Dressing;Meal Preparation;Feeding;Medication Adminis tration;Shopping;Toileting;Hygiene;Transfers Preferred Pharmacy: [facility] [place] - [phone] [facility] [phone] [facility] [address] READMISSION RISK SCORE is N/A at 1:52 PM 02/17/2024. Met with patient and Nurse at [facility] Family Support (name and phone): Extended Emergency Contact Information Primary Emergency Contact: Adriane Hilliard Mobile Relation: Sister Adapted Physical Education Aide needed? 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 Yes Actual Level of Care/Dispostion Details Durable Medical Equipment Planning Equipment at Home: None List DME pt. requires but does not have.: None Oil Rag Washer Referral: Yes Will continue to follow. For any questions or needs please contact: Handle Bar Assembler/Social Work Name/Phone number: Mahogany Reed RN * Elmo Caicedo SLP - 02/17/2024 9:00 AM CDT [facility] Department of Physical Medicine & Rehabilitation Progress Note Patient: Bi Tabor Med Record Number: [id number] Date of : 1960 Age: [age] year old [employer] TRA[employer] CONSULTANT consult received and acknowledged. Patient somnolent and on cEEG, with PEG and trach, not appropriate for ST eval at this time. Elmo Ansari M.A., [facility]-[employer] TRA[employer] CONSULTANT Speech Language Pathologist [phone] * Mel Ramos RN - 02/17/2024 2:02 AM CDT Problem: Fall Risk Goal: Fall risk and fall related injury risk are minimized (interventions related to the fall risk can be found in the flowsheet documentation) Outcome: Progressing Problem: Pain/Discomfort Goal: Patient exhibits reduced pain/discomfort as evidenced by pain scores Outcome: Progressing Goal: Patient uses pharmacological and non-pharmacological pain management strategies. Outcome: Progressing Goal: Patient verbalizes acceptable level of pain relief and ability to engage in desired activity. Outcome: Progressing Problem: Skin Integrity Goal: Skin integrity is maintained or improved Outcome: Progressing Problem: Seizures Goal: Seizures are under control or absent Outcome: Progressing * Mel Ramos RN - 02/17/2024 12:00 AM CDT Pt came via EMS to room. Pt has trach with oxygen 6L high flow. Pt has peg tube. Pt was able to nodhead yes when asked if name was Bi. Pt able to move BUE and squeeze hand. Pt has amputation of LLE. Pt able to move RLE. Bed low locked and call light in reach. Doctor informed of pt arrival. 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 Patient has been having multiple seizures including one that lasted 40 minutes in his living facility. He was sent here for continuous EEG monitoring which they did not have at OSH. They completed a routine EEG that did not capture any seizures. Patient's seizures semiologies consist of sating off spells, head shaking, or convulsions. Past Medical History No history on file. Past Medical History: Diagnosis Date Cerebrovascular disease [...] Right Maxillary Antrostomy, Rihjy Anterior Ethmoidectomy Allergies Allergies Allergen Reactions Clonazepam Psychiatric hallucinations Family History No family history on file. Social History Social History Social History Narrative Not on file Review of Systems Reviewed and negative except for noted in HPI. Objective: BP 141/89 (BP Location: Left arm) Pulse 90 Temp 97.6 ??F (36.4 ??C) (Oral) Resp 20 Ht 1.753m (5' 9 ) Wt 77.1 kg (170 lb) SpO2 96% Temp (30hrs) Max:97.6 ??F (36.4 ??C) Body mass index is 25.1 kg/m??. Exam: Cortical Function Mental Status Opens eyes to voice, follows commands Orientation AxOx0 Language Trach, non verbal Visual Ivan Unable to determine Neglect Unable to determine Cranial Nerves II Pupils 4 mm and bilaterally reactive to light. Fundoscopic exam not performed. VIII Unable to determine III/IV/ Extraocular muscles intact. No diplopia, ptosis, nystagmus or convergence abnormalities noted. IX/X Unable to determine V Unable to determine XI Unable to determine VII No facial palsy noted. XII Unable to determine. Motor Function Movement No abnormalities noted Bulk diminished Tone No abnormalities noted Moves right side 3/5, 0/5 left side Muscle Stretch Reflexes BI TRI BR PAT ACH TOES Right 3 2 3 0 0 Left 3 2 3 AKA AKA AKA Sensory Light Touch Unable to determine Noxious Stimuli withdraws Temperature Not tested Pallesthesia Not tested Cerebellar FNF FREEDOM HKS Right Intact Deferred Deferred Left EARNEST Deferred AKA Gait Deferred Labs: No results found for this or any previous visit (from the past 24 hour(s)). Assessment and Plan: 64 year old trasferred from OSH for cEEG monitoring after a seizure that lasted 40 minutes. #Status Epilepticus - cEEG - Continue ASM: Keppra 2g BID, Vimpat 200mg BID, valproic acid 1,250mg QID, clobazam 10mg BID - Seizure precautions #HTN #HLD #Strokes - Cont metoprolol tartrate 25mg BID, Lipitor 40mg qday, ASA 81 #Nutrition - TF - Nutrition consult #Chronic hypoxic respiratory failure s/p trach and PEG - Cont trach collar Will be discussed with Attending Physician in the morning Candy Hoover MD Neurology Resident Associated attestation - Brian Lawrence MD - 02/17/2024 9:57 PM CDT I have verified the documentation of the resident, including all history, exam, and medical decision-making details. I have personally performed a physical exam and have personally reviewed the data to support my medical decision-making as outlined in the resident's note, and I arrive independentlyat the same conclusion. Date of Service: 02/17/24 Brian Lawrence MD documented in this encounter Procedure Notes * Ottoniel Pinto - 02/20/2024 11:50 AM CDT PT check was completed. boring machine set up operator and machine working properly. No skin breakdown. * Juan Diego Lang - 02/20/2024 11:42 AM CDT Pt disconnected from cEEG * Mara Paredes - 02/20/2024 6:23 AM CDT EEG CHECK COMPLETE 6:00a All impedances below 10k following fixes (C4,T5,FP1,FP2,REF. No vitals available- On network * BreanneSean Evelia, DO - 02/20/2024 5:43 AM CDT [facility] EEG REPORT Patient Name: Bi Tabor EEG#: [id number] Recording Start Time: 04:46 AM 02/17/2024 Epoch Start Time: 05:00 AM 02/19/2024 Epoch Stop Time: 11:27 AM 02/20/2024 Clinical History: Bi Tabor is a 64 year old male with seizures and altered mental status. This continuous video EEG monitoring is ordered to evaluate for seizures in the setting of altered mentalstatus. Current medications Current Facility-Administered Medications Medication 0.9% NaCl injection 3 mL And 0.9% NaCl injection 1-10 mL acetaminophen (Tylenol) tablet 650 mg albuterol-ipratropium (Duo-Neb) nebulizer solution 3 mL aspirin chew tablet 81 mg atorvastatin (Lipitor) tablet 40 mg bisacodyl (Dulcolax) suppository 10 mg calcium carbonate (500 mg elemental Ca/5 mL) suspension cloBAZam (Onfi) tablet 10 mg dextrose 10 % IV bolus Or dextrose 10 % IV bolus Or glucagon (Glucagen) injection 1 mg famotidine (Pepcid) tablet 20 mg folic acid (Folvite) tablet 1 mg glucose (Diabetic Use) oral gel guaiFENesin (Robitussin) solution 15 mL heparin injection 5,000 Units lacosamide (Vimpat) oral solution 200 mg levETIRAcetam (Keppra) oral solution 2,000 mg metoprolol tartrate IR (Lopressor) tablet 25 mg polyethylene glycol 3350 (Miralax) packet 17 g senna (Senokot) tablet 8.6 mg thiamine (Vitamin B-1) tablet 100 mg valproic acid (Depakene) solution 1,250 mg Description This is a continuous video EEG monitoring is 21-channels; consisting of 20 channels of EEG obtainedfrom electrodes placed on the scalp according to the international 10-20 system, T1 and T2 electrodes, and one channel of EKG monitoring. Background: Epoch Start Time: 04:46 AM 02/17/2024 Epoch Stop Time: 05:00 AM 02/18/2024 The background was asymmetric, with lateralized right hemispheric slowing. No well-developed posterior dominant rhythm was identified. Anterior-posterior gradient was absent. The background was continuous and consisted of moderately to poorly organized theta activity of normal amplitude with admixed delta activity, more visible over the left. Variability was present. Reactivity was present. Sleeparchitecture was identified in the form of spindles. Epileptiform discharges were frequently identified (more common at the end of the epoch) over the right frontal region and was rarely semiperiodic, and rarely over the right temporal region. Epoch Start Time: 05:00 AM 02/18/2024 Epoch Stop Time: 05:00 AM 02/19/2024 The background was asymmetric, with lateralized right hemispheric slowing. No well-developed posterior dominant rhythm was identified. Anterior-posterior gradient was absent. The background was continuous and consisted of moderately to poorly organized theta activity of normal amplitude with admixed delta activity, more visible over the left. Variability was present. Reactivity was present. Sleeparchitecture was identified in the form of spindles. Epileptiform discharges were frequently identified over the right frontal region and were frequently periodic, and rarely noted over the right temporal region. Epoch Start Time: 05:00 AM 02/19/2024 Epoch Stop Time: 11:27 AM 02/20/2024 The background was asymmetric, with lateralized right hemispheric slowing. No well-developed posterior dominant rhythm was identified. Anterior-posterior gradient was absent. The background was continuous and consisted of moderately to poorly organized theta activity of normal amplitude with admixed delta activity, more visible over the left. Variability was present. Reactivity was present. Sleeparchitecture was identified in the form of spindles. Epileptiform discharges were identified over the right frontal region and were occasionally periodic, and rarely noted over the right temporal region. These were less common than previous epoch. EKG was observed throughout the recording. IMPRESSION This is an abnormal cEEG due to 1) right frontal and temporal epileptiform discharges, 2) lateralized right hemispheric slowing, and 3) generalized slowing. CLINICAL CORRELATION: Between 02/17/2024 to 02/18/2024, the study was suggestive of increased tendency toward seizures, lateralized right hemispheric dysfunction, and mild to moderate encephalopathy. Between 02/18/2024 to 02/19/2024, the study was suggestive of increased tendency toward seizures, lateralized right hemispheric dysfunction, and mild to moderate encephalopathy. Between 02/19/2024 to 02/20/2024, the study was suggestive of increased tendency toward seizures, lateralized right hemispheric dysfunction, and mild encephalopathy. There was some improvement noted from the previous epoch with decreased occurrence of interictal abnormalities. Sean Raymundo DO * Juan Diego Lang - 02/19/2024 6:32 PM CDT Pt's cEEG checked. Vitals noted. Imp under 10 kohms. Study is on train station server. * Sean Raymundo DO - 02/19/2024 9:53 AM CDT [facility] EEG REPORT Patient Name: Bi Tabor EEG#: [id number] Recording Start Time: 04:46 AM 02/17/2024 Epoch Start Time: 05:00 AM 02/18/2024 Epoch Stop Time: 05:00 AM 02/19/2024 Clinical History: Bi Tabor is a 64 year old male with seizures and altered mental status. This continuous video EEG monitoring is ordered to evaluate for seizures in the setting of altered mentalstatus. Current medications Current Facility-Administered Medications Medication 0.9% NaCl injection 3 mL And 0.9% NaCl injection 1-10 mL acetaminophen (Tylenol) tablet 650 mg albuterol-ipratropium (Duo-Neb) nebulizer solution 3 mL aspirin chew tablet 81 mg atorvastatin (Lipitor) tablet 40 mg bisacodyl (Dulcolax) suppository 10 mg calcium carbonate (500 mg elemental Ca/5 mL) suspension cloBAZam (Onfi) tablet 10 mg dextrose 10 % IV bolus dextrose 10 % IV bolus dextrose 10 % IV bolus Or dextrose 10 % IV bolus Or glucagon (Glucagen) injection 1 mg famotidine (Pepcid) tablet 20 mg folic acid (Folvite) tablet 1 mg glucose (Diabetic Use) oral gel guaiFENesin (Robitussin) solution 15 mL heparin injection 5,000 Units lacosamide (Vimpat) oral solution 200 mg lactated ringers infusion levETIRAcetam (Keppra) oral solution 2,000 mg metoprolol tartrate IR (Lopressor) tablet 25 mg polyethylene glycol 3350 (Miralax) packet 17 g senna (Senokot) tablet 8.6 mg thiamine (Vitamin B-1) tablet 100 mg valproic acid (Depakene) solution 1,250 mg Description This is a continuous video EEG monitoring is 21-channels; consisting of 20 channels of EEG obtainedfrom electrodes placed on the scalp according to the international 10-20 system, T1 and T2 electrodes, and one channel of EKG monitoring. Background: Epoch Start Time: 04:46 AM 02/17/2024 Epoch Stop Time: 05:00 AM 02/18/2024 The background was asymmetric, with lateralized right hemispheric slowing. No well-developed posterior dominant rhythm was identified. Anterior-posterior gradient was absent. The background was continuous and consisted of moderately to poorly organized theta activity of normal amplitude with admixed delta activity, more visible over the left. Variability was present. Reactivity was present. Sleeparchitecture was identified in the form of spindles. Epileptiform discharges were frequently identified (more common at the end of the epoch) over the right frontal region and was rarely semiperiodic, and rarely over the right temporal region. Epoch Start Time: 05:00 AM 02/18/2024 Epoch Stop Time: 05:00 AM 02/19/2024 The background was asymmetric, with lateralized right hemispheric slowing. No well-developed posterior dominant rhythm was identified. Anterior-posterior gradient was absent. The background was continuous and consisted of moderately to poorly organized theta activity of normal amplitude with admixed delta activity, more visible over the left. Variability was present. Reactivity was present. Sleeparchitecture was identified in the form of spindles. Epileptiform discharges were frequently identified over the right frontal region and were frequently periodic, and rarely noted over the right temporal region. EKG was observed throughout the recording. IMPRESSION This is an abnormal cEEG due to 1) right frontal and temporal epileptiform discharges, 2) lateralized right hemispheric slowing, and 3) generalized slowing. CLINICAL CORRELATION: Between 02/17/2024 to 02/18/2024, the study was suggestive of increased tendency toward seizures, lateralized right hemispheric dysfunction, and mild to moderate encephalopahty. Between 02/18/2024 to 02/19/2024, the study was suggestive of increased tendency toward seizures, lateralized right hemispheric dysfunction, and mild to moderate encephalopahty. Sean Raymundo DO * Danish Connors - 02/19/2024 9:29 AM CDT Bedside check. Corrected the impedance of 1 electrode. No skin breakdown under Fp1. All electrode impedances are below 10k Ohms. Vitals were noted on the cEEG. Files are current on network. * Danish Connors - 02/18/2024 5:10 PM CDT Bedside check. No skin breakdown under Fp1. All electrode impedances are below 10k Ohms. Vitals were noted on the cEEG. Files are current on network. * Sean Raymundo DO - 02/18/2024 7:01 AM CDT [facility] EEG REPORT Patient Name: Bi Tabor EEG#: [id number] Recording Start Time: 04:46 AM 02/17/2024 Epoch Start Time: 04:46 AM 02/17/2024 Epoch Stop Time: 05:00 AM 02/18/2024 Clinical History: Bi Tabor is a 64 year old male with seizures and altered mental status. This continuous video EEG monitoring is ordered to evaluate for seizures in the setting of altered mentalstatus. Current medications Current Facility-Administered Medications Medication 0.9% NaCl injection 3 mL And 0.9% NaCl injection 1-10 mL acetaminophen (Tylenol) tablet 650 mg acetylcysteine (Mucomyst) 20 % solution 600 mg albuterol-ipratropium (Duo-Neb) nebulizer solution 3 mL aspirin chew tablet 81 mg atorvastatin (Lipitor) tablet 40 mg bisacodyl (Dulcolax) suppository 10 mg calcium carbonate (500 mg elemental Ca/5 mL) suspension cloBAZam (Onfi) tablet 10 mg famotidine (Pepcid) tablet 20 mg folic acid (Folvite) tablet 1 mg guaiFENesin (Robitussin) solution 15 mL heparin injection 5,000 Units lacosamide (Vimpat) oral solution 200 mg levETIRAcetam (Keppra) oral solution 2,000 mg metoprolol tartrate IR (Lopressor) tablet 25 mg polyethylene glycol 3350 (Miralax) packet 17 g senna (Senokot) tablet 8.6 mg thiamine (Vitamin B-1) tablet 100 mg valproic acid (Depakene) solution 1,250 mg Description This is a continuous video EEG monitoring is 21-channels; consisting of 20 channels of EEG obtainedfrom electrodes placed on the scalp according to the international 10-20 system, T1 and T2 electrodes, and one channel of EKG monitoring. Background: Epoch Start Time: 04:46 AM 02/17/2024 Epoch Stop Time: 05:00 AM 02/18/2024 The background was asymmetric, with lateralized right hemispheric slowing. No well-developed posterior dominant rhythm was identified. Anterior-posterior gradient was absent. The background was continuous and consisted of moderately to poorly organized theta activity of normal amplitude with admixed delta activity, more visible over the left. Variability was present. Reactivity was present. Sleeparchitecture was identified in the form of spindles. Epileptiform discharges were frequently identified (more common at the end of the epoch) over the right frontal region and was rarely semiperiodic, and rarely over the right temporal region. EKG was observed throughout the recording. IMPRESSION This is an abnormal cEEG due to 1) right frontal and temporal epileptiform discharges, 2) lateralized right hemispheric slowing, and 3) generalized slowing. CLINICAL CORRELATION: Between 02/17/2024 to 02/18/2024, the study was suggestive of increased tendency toward seizures, lateralized right hemispheric dysfunction, and mild to moderate encephalopahty. Sean Raymundo DO * Ottoniel Pinto - 02/17/2024 9:47 AM CDT Patient check completed. No fixes needed. * Mega Tim - 02/17/2024 5:03 AM CDT Pt hooked up to MRI compatible wires. documented in this encounter Consult Notes * Mely Layne RD/ONI - 02/17/2024 9:56 AM CDTAssociated Order(s): IP CONSULT TO NUTRITIONAL SERV Clinical Nutrition Assessment Brief Synopsis: Patient is at Nutrition Risk; Specific criteria can be found in assessment below Nutrition Plan: Current diet order: NPO Tube Feeding Recommendations -- or equivalent: Continuous: Jevity 1.5 at 60 ml/hr. Provides 2160 kcal, 92 g protein, 311 g carbohydrate, 1094 ml free water. +180 ml free water flush q 4 hrs, or per MD, if not on additional IV fluids TF considerations: - If patient cannot swallow/tolerate oral intake, NPO diet order must be placed (even if tube feeding already ordered). - Do not hold unless residuals >500 as recommended by ASPEN. - Signs of intolerance include: diarrhea, abdominal pain or distention. - Head of bed > 30??. Recommendations to Physician: Continuing current TF order as tolerated -- if pt starts to show signs of intolerance, recommend decreasing rate to 20 ml/hr then advancing by 10 ml q 6-8 hrs until tolerating at goal. Comments: RD consulted per TF protocol. Clinical nutrition familiar with pt hx due to past admission. Pt with hx of trach and PEG-tube dependency. Noted Jevity 1.5 at 60 ml/hr and currently infusing.No significant GI issues noted in chart. Last BM [employer]. Labs reviewed -- lytes WNL. No changes to nutrition plan currently warranted at this time. RD to follow per clinical nutrition guidelines. 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 BMI Range: Overweight IBW/lb (Calculated) Male: 160 , Recent Weights/Methods 06/09/2023 1127 06/18/2023 2349 06/25/2023 0400 09/06/2023 1254 09/08/2023 2149 09/14/2023 0529 12/22/2023 0857 02/17/2024 0049 Weight: 81.6 kg (180 lb) 81.6 kg (180 lb) 80.3 kg (177 lb) 80.3 kg (177 lb) 80 kg (176 lb 5.9 oz) 81.6 kg (180 lb) 77.1 kg (170 lb) 77.1 kg (170 lb) Weight Method : Estimated Other (Comment) Bedscale -- Bed scale Estimated Estimated Bed scale Wt Comments: reviewed. Diet order accuracy Current diet order: NPO Current tube feeding order: Jevity 1.5 at 60 ml/hr Nutrition recommendation: agree with current nutrition order P.O.Intake for the past 48 hrs: % Meal Taken Av % Min: 0 % Max: 0 % Supplement(s) Consumed- Last 48 hours None Food Allergies: No known food allergies GI Concerns: None Chewing/Swallowing: Dysphagia (trach and PEG-tube dependency) Pain affecting intake: No Estimated Needs: KCAL: 5868-9888 (25-30 kcal/kg ABW) Protein (g): 93g (1.2 g/kg ABW) Fluid (ml): 1 ml/kcal Needs based on: Kcal/kg- (Comment) (ABW of 77.1kg) Recommended Access Route: TF Laboratory values: Recent Labs Component Name 02/17/24 0411 11/18/23 0302 09/14/23 1345 09/07/23 0457 09/06/23 1716 BUN 10 11 5* - 19 CREATININE 0.55* 0.62* 0.40* - 0.62* NA 140 140 143 - 142 POTASSIUM 4.5 4.5 3.3* - 4.2 CL 108* 105 116* - 104 CO2 22 26 22 - 28 GLUCOSE 85 86 65* - 84 CALCIUM 9.3 9.8 7.1* - 9.5 PROT - 8.0 4.7* - 7.3 ALB - 3.6 2.0* - 2.8* TBILI - 0.4 0.2 - 0.4 ALKPHOS - 101 56 - 83 ALT - 20 7 - 15 AST - 22 13 - 21 ANIONGAP 10 9 5* - 10 BCR 18 18 13 - 31* OSMOLALITY 288 289 291 - 295 AGRATIO - 0.8* 0.7* - 0.6* EGFR >90 >90 >90 - >90 - = values in this interval not displayed. Medications: Current Facility-Administered Medications Medication 0.9% NaCl injection 3 mL And 0.9% NaCl injection 1-10 mL acetaminophen (Tylenol) tablet 650 mg acetylcysteine (Mucomyst) 20 % solution 600 mg albuterol-ipratropium (Duo-Neb) nebulizer solution 3 mL aspirin chew tablet 81 mg atorvastatin (Lipitor) tablet 40 mg bisacodyl (Dulcolax) suppository 10 mg calcium carbonate (500 mg elemental Ca/5 mL) suspension cloBAZam (Onfi) tablet 10 mg famotidine (Pepcid) tablet 20 mg folic acid (Folvite) tablet 1 mg guaiFENesin (Robitussin) solution 15 mL heparin injection 5,000 Units lacosamide (Vimpat) oral solution 200 mg levETIRAcetam (Keppra) oral solution 2,000 mg metoprolol tartrate IR (Lopressor) tablet 25 mg polyethylene glycol 3350 (Miralax) packet 17 g senna (Senokot) tablet 8.6 mg thiamine (Vitamin B-1) tablet 100 mg valproic acid (Depakene) solution 1,250 mg Skin/Wound: WDL Nutrition Care Process (1) Nutrition Diagnostic Statement: Swallowing difficulty related to:: neurological or muscular disorders as evidenced by:: abnormal swallow study (hx of PEG tube dependency) Nutrition Diagnostic Statement Progress: New diagnostic statement established Nutrition Intervention: Enteral nutrition: Monitoring: TF, BM, labs, meds, weight Evaluation: Nutrition Goal: Enteral/Parenteral Nutrition prescription will be consistent with estimated nutrient needs Nutrition Goal Timeframe: Throughout stay Nutrition Goal Progress: New goal established Mely Layne MS, RD/RDN, LD Ascom: [id number] documented in this encounter Plan of Treatment Upcoming Encounters Date Type Department Care Team (Late st Contact Info) Description 12/05/2024 1:00 PM CDT Office Visit [facility] - Neurology [address] [place] [address], [place] [id number] Sean Raymundo, DO [address] [place] [address] [place] [id number] Scheduled Orders Name Type Priority Associated Diagnoses Orde r Schedule OXYGEN WITH TITRATION PROTOCOL (ADULT) Respiratory Care Routine ONCE for 1 Occurrences starting 02/17/2024 until 02/17/2024 Scheduled Referrals Name Type Priority Associated Diagnoses Orde r Schedule Ref to Neurology [facility] Outpatient Referral Routine Seizure disorder (HCC) Ordered: 02/20/2024 documented as of this encounter Procedures Procedure Name Priority Date/Time Associated Diagnosis Comments GLUCOSE - POINT OF CARE Routine 02/20/2024 5:02 PM CDT GLUCOSE - POINT OF CARE Routine 02/20/2024 11:45 AM CDT GLUCOSE - POINT OF CARE Routine 02/20/2024 8:30 AM CDT CBC W/O DIFFERENTIAL Routine 02/20/2024 5:55 AM CDT 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, not intractable, without status epilepticus (HCC) BASIC METABOLIC PANEL (CALCIUM TOTAL) Routine 02/20/2024 5:55 AM CDT 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, not intractable, without status epilepticus (HCC) PHOSPHORUS BLOOD Routine 02/20/2024 5:55 AM CDT 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, not intractable, without status epilepticus (HCC) MAGNESIUM BLOOD Routine 02/20/2024 5:55 AM CDT 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, not intractable, without status epilepticus (HCC) EKG 12-LEAD STAT 02/19/2024 5:27 PM CDT Hypertension, unspecified type CBC W/O DIFFERENTIAL Routine 02/19/2024 4:51 PM CDT 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, not intractable, without status epilepticus (HCC) BASIC METABOLIC PANEL (CALCIUM TOTAL) Timed 02/19/2024 4:51 PM CDT Anemia, unspecified type Elevated lactic acid level BASIC METABOLIC PANEL (CALCIUM TOTAL) Routine 02/19/2024 2:00 AM CDT 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, not intractable, without status epilepticus (HCC) PHOSPHORUS BLOOD Routine 02/19/2024 2:00 AM CDT 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, not intractable, without status epilepticus (HCC) MAGNESIUM BLOOD Routine 02/19/2024 2:00 AM CDT 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, not intractable, without status epilepticus (HCC) LACTIC ACID BLOOD Routine 02/19/2024 2:0 0 AM CDT Seizures (CMS/HCC) CK BLOOD Routine 02/19/2024 2:00 AM CDT Seizures (CMS/HCC) OT EVAL AND TREAT Routine 02/18/2024 7:3 9 AM CDT PT EVAL AND TREAT Routine 02/18/2024 7:3 9 AM CDT LACOSAMIDE AM Draw 02/18/2024 3:41 AM CDT Severe protein-calorie malnutrition (HCC) Seizures (CMS/HCC) LEVETIRACETAM LEVEL AM Draw 02/18/2024 3 :41 AM CDT Severe protein-calorie malnutrition (HCC) Seizures (CMS/HCC) CBC W/O DIFFERENTIAL Routine 02/18/2024 3:41 AM CDT 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, not intractable, without status epilepticus (HCC) BASIC METABOLIC PANEL (CALCIUM TOTAL) Routine 02/18/2024 3:41 AM CDT 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, not intractable, without status epilepticus (HCC) PHOSPHORUS BLOOD Routine 02/18/2024 3:41 AM CDT 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, not intractable, without status epilepticus (HCC) MAGNESIUM BLOOD Routine 02/18/2024 3:41 AM CDT 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, not intractable, without status epilepticus (HCC) URINALYSIS REFLEX MICROSCOPIC REFLEX CULTURE STAT 02/17/2024 3:36 PM CDT Encounter for feeding tube placement CBC W/O DIFFERENTIAL Routine 02/17/2024 11:47 AM CDT 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, not intractable, without status epilepticus (HCC) BASIC METABOLIC PANEL (CALCIUM TOTAL) Routine 02/17/2024 4:11 AM CDT 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, not intractable, without status epilepticus (HCC) PHOSPHORUS BLOOD Routine 02/17/2024 4:11 AM CDT 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, not intractable, without status epilepticus (HCC) MAGNESIUM BLOOD Routine 02/17/2024 4:11 AM CDT 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, not intractable, without status epilepticus (HCC) documented in this encounter Results * (ABNORMAL) GLUCOSE - POINT OF CARE (02/20/2024 5:02 PM CDT) Glucose WB/POC 129(H) 70 - 115 mg/dL 02/20/2024 6:04 PM CDT [facility] Specimen Type Arterial 02/20/2024 6:04 PM CDT [facility] Blood BLOOD SPECIMEN / Unknown 02/20/2024 5:02 PM CDT 02/20/2024 6:04 PM CDT Leatha Vinson MD LAB - POINT OF CARE ORDERABLES [address] [address], [facility] [phone] * GLUCOSE - POINT OF CARE (02/20/2024 11:45 AM CDT) Glucose WB/POC 96 70 - 115 mg/dL 02/20/2024 11:57 AM CDT [facility] Specimen Type Arterial 02/20/2024 11:57 AM CDT [facility] Blood BLOOD SPECIMEN / Unknown 02/20/2024 11:45 AM CDT 02/20/2024 11:57 AM CDT Brian Lawrence MD LAB - POINT OF CARE ORDERABLES [address] [address], [place] [phone] * GLUCOSE - POINT OF CARE (02/20/2024 8:30 AM CDT) Glucose WB/POC 114 70 - 115 mg/dL 02/20/2024 8:36 AM CDT [facility] Specimen Type Arterial 02/20/2024 8:36 AM CDT [facility] Blood BLOOD SPECIMEN / Unknown 02/20/2024 8:30 AM CDT 02/20/2024 8:36 AM CDT Brian Lawrence MD LAB - POINT OF CARE ORDERABLES Performing Organization Address City/[facility]/ZIP Co de Phone Number [address] [address], [place] [phone] * PHOSPHORUS BLOOD (02/20/2024 5:55 AM CDT) Phosphorus 3.0 2.8 - 5.1 mg/dL 02/20/2024 7:05 AM CDT [facility] Blood BLOOD SPECIMEN / Unknown Lab Venipuncture / Unknown 02/20/2024 5:55 AM CDT 02/20/2024 6:33 AM CDT Brian Lawrence MD LAB - CHEMISTRY MARSHAL MEDEROS [address] [address], [place] [phone] * MAGNESIUM BLOOD (02/20/2024 5:55 AM CDT) Magnesium 1.9 1.6 - 2.6 mg/dL 02/20/2024 7:05 AM [facility] Blood BLOOD SPECIMEN / Unknown Lab Venipuncture / Unknown 02/20/2024 5:55 AM CDT 02/20/2024 6:33 AM CDT Brian Lawrence MD LAB - CHEMISTRY MARSHAL MEDEROS [facility] Organization Address City/State/ZIP Co de Phone Number [facility] [address] [place] [address], [facility] [phone] * (ABNORMAL) CBC W/O DIFFERENTIAL (02/20/2024 5:55 AM CDT) WBC 6.6 4.0 - 10.7 x10E9/L 02/20/2024 6:52 AM [facility] RBC Count 3.47(L) 4.30 - 5.80 x10E12/L 02/20/2024 6:52 AM [facility] Hemoglobin 11.4(L) 13.3 - 17.5 g/dL 02/20/2024 6:52 AM [facility] Hematocrit 34.6(L) 38.7 - 51.1 % 02/20/2024 6:52 AM [facility] MCV 99.7(H) 80.0 - 98.0 fL 02/20/2024 6:52 AM [facility] MCH 32.9 26.7 - 33.6 pg 02/20/2024 6:52 AM [facility] MCHC 32.9 31.7 - 36.3 g/dL 02/20/2024 6:52 AM [facility] RDW-CV 13.4 11.3 - 14.8 % 02/20/2024 6:52 AM [facility] Platelet Count 165 150 - 420 x10E9/L 02/20/2024 6:52 AM [facility] MPV 12.7(H) 7.8 - 11.4 fL 02/20/2024 6:52 AM [facility] NRBC 0.6(H) <=0.0 /100 WBC 02/20/2024 6:52 AM [facility] Blood BLOOD SPECIMEN / Unknown Lab Venipuncture / Unknown 02/20/2024 5:55 AM CDT 02/20/2024 6:33 AM CDT Brian Lawrence MD LAB - HEMATOLOGY ORD ERABLES [facility] [address] [place] [address], [facility] [phone] * (ABNORMAL) BASIC METABOLIC PANEL (CALCIUM TOTAL) (02/20/2024 5:55 AM CDT) BUN 12 7 - 26 mg/dL 02/20/2024 7:05 AM [facility] Creatinine 0.55(L) 0.71 - 1.16 mg/dL 02/20/2024 7:05 AM [facility] Sodium 140 136 - 145 mmol/L 02/20/2024 7:05 AM [facility] Potassium 4.5 3.5 - 4.5 mmol/L 02/20/2024 7:05 AM [facility] Chloride 107 98 - 107 mmol/L 02/20/2024 7:05 AM [facility] CO2 26 22 - 29 mmol/L 02/20/2024 7:05 AM [facility] Glucose 113 70 - 115 mg/dL 02/20/2024 7:05 AM [facility] Calcium 9.3 8.4 - 10.2 mg/dL 02/20/2024 7:05 AM [facility] Anion Gap 7 6 - 16 02/20/2024 7:05 AM [facility] BUN/Creatinine Ratio 22 7 - 23 02/20/2024 7:05 AM [facility] Osmolality Calculated 291 275 - 295 mOsm/kg 02/20/2024 7:05 AM [facility] eGFR by CKD-EPI >90 >=90 mL/min/1.7 3 m2 02/20/2024 7:05 AM [facility] Blood BLOOD SPECIMEN / Unknown Lab Venipuncture / Unknown 02/20/2024 5:55 AM CDT 02/20/2024 6:33 AM CDT Brian Lawrence MD LAB - CHEMISTRY MARSHAL MEDEROS Performing Organization Address City/[facility]/ZIP Co de Phone Number [facility] [address] [place] [address], [facility] [phone] * EKG 12-LEAD (02/19/2024 5:27 PM CDT) [facility] Ventricular Rate 93 BPM [facility] MUSE Atrial Rate 93 BPM [facility] MUSE P-R Interval 148 ms [facility] MUSE QRS Duration ms 74 ms [facility] MUSE Q-T Interval ms 366 ms [facility] MUSE QTC Calculation (Bezet) 455 ms SL MUSE Calculated P Patterson 66 degrees SL MUSE Calculated R Patterson -3 degrees SL MUSE Calculated T Patterson 83 degrees [facility] MUSE Interpretation EKG NORMAL SINUS RHYTHM NONSPECIFIC T WAVE ABNORMALITY ABNORMAL ECG WHEN COMPARED WITH ECG OF 09-JUN-2023 11:50, CRITERIA FOR SEPTAL INFARCT ARE NO LONGER PRESENT Confirmed by SABIHA OLSEN SHARDA ([id number]) on 02/19/2024 11:22:40 PM [facility] MUSE 02/19/2024 5:27 PM CDT 02/19/2024 11:22 PM CDT Brian Lawrence MD ECG ORDERABLES Performing Organization Address [facility] Co de Phone Number [facility]USE * (ABNORMAL) BASIC METABOLIC PANEL (CALCIUM TOTAL) (02/19/2024 4:51 PM CDT) Pathologist [facility] BUN 12 7 - 26 mg/dL 02/19/2024 5:52 PM CDT [facility] Creatinine 0.55(L) 0.71 - 1.16 mg/dL 02/19/2024 5:52 PM CDT [facility] Sodium 137 136 - 145 mmol/L 02/19/2024 5:52 PM CDT [facility] Potassium 4.7(H) 3.5 - 4.5 mmol/L 02/19/2024 5:52 PM CDT [facility] Chloride 109(H) 98 - 107 mmol/L 02/19/2024 5:52 PM [facility] CO2 22 22 - 29 mmol/L 02/19/2024 5:52 PM [facility] Glucose 119(H) 70 - 115 mg/dL 02/19/2024 5:52 PM [facility] Calcium 8.9 8.4 - 10.2 mg/dL 02/19/2024 5:52 PM [facility] Anion Gap 6 6 - 16 02/19/2024 5:52 PM [facility] BUN/Creatinine Ratio 22 7 - 23 02/19/2024 5:52 PM [facility] Osmolality Calculated 285 275 - 295 mOsm/kg 02/19/2024 5:52 PM [facility] eGFR by CKD-EPI >90 >=90 mL/min/1.7 3 m2 02/19/2024 5:52 PM [facility] Blood BLOOD SPECIMEN / Unknown Lab Venipuncture / Unknown 02/19/2024 4:51 PM CDT 02/19/2024 5:27 PM CDT Brian Lawrence MD LAB - CHEMISTRY ORDE GATITO [facility] Organization Address City/State/ZIP Co de Phone Number [facility] [address] [place] [id number] [phone] * (ABNORMAL) CBC W/O DIFFERENTIAL (02/19/2024 4:51 PM CDT) WBC 5.9 4.0 - 10.7 x10E9/L 02/19/2024 6:48 PM [facility] RBC Count 3.46(L) 4.30 - 5.80 x10E12/L 02/19/2024 6:48 PM [facility] Hemoglobin 11.3(L) 13.3 - 17.5 g/dL 02/19/2024 6:48 PM [facility] Hematocrit 35.8(L) 38.7 - 51.1 % 02/19/2024 6:48 PM [facility] MCV 103.5(H) 80.0 - 98.0 fL 02/19/2024 6:48 PM [facility] MCH 32.7 26.7 - 33.6 pg 02/19/2024 6:48 PM CDT [facility] MCHC 31.6(L) 31.7 - 36.3 g/dL 02/19/2024 6:48 PM CDT [facility] RDW-CV 13.4 11.3 - 14.8 % 02/19/2024 6:48 PM CDT [facility] Platelet Count 122(L) 150 - 420 x10E9/L 02/19/2024 6:48 PM CDT [facility] MPV 02/19/2024 6:48 PM CDT [facility] Comment:Unable to report NRBC 0.5(H) <=0.0 /100 WBC 02/19/2024 6:48 PM CDT [facility] Blood BLOOD SPECIMEN / Unknown Lab Venipuncture / Unknown 02/19/2024 4:51 PM CDT 02/19/2024 5:27 PM CDT Brian Lawrence MD LAB - HEMATOLOGY ORD ERABLES [address] [address], [facility] [phone] * (ABNORMAL) PHOSPHORUS BLOOD (02/19/2024 2:00 AM CDT) Phosphorus 2.6(L) 2.8 - 5.1 mg/dL 02/19/2024 2:46 AM CDT [facility] Blood BLOOD SPECIMEN / Unknown 02/19/2024 2:00 AM CDT 02/19/2024 2:20 AM CDT Brian Lawrence MD LAB - CHEMISTRY ORDE GATITO [address] [address], [place] [phone] * MAGNESIUM BLOOD (02/19/2024 2:00 AM CDT) Magnesium 2.1 1.6 - 2.6 mg/dL 02/19/2024 2:46 AM [facility] Comment:Hemolysis detected i n this specimen. Hemolysis is known to cause elevations in this analyte. Caution should be exercised in the interpretation of this result. Recommend repeat testing if clinically indicated. Blood BLOOD SPECIMEN / Unknown 02/19/2024 2:00 AM CDT 02/19/2024 2:20 AM CDT Brian Lawrence MD LAB - CHEMISTRY MARSHAL MEDEROS [facility] Organization Address City/State/ZIP Co de Phone Number [facility] [address] [place] [id number], [facility] [phone] * (ABNORMAL) BASIC METABOLIC PANEL (CALCIUM TOTAL) (02/19/2024 2:00 AM CDT) BUN 17 7 - 26 mg/dL 02/19/2024 2:46 AM [facility] Creatinine 0.56(L) 0.71 - 1.16 mg/dL 02/19/2024 2:46 AM [facility] Sodium 140 136 - 145 mmol/L 02/19/2024 2:46 AM [facility] Potassium 5.6(H) 3.5 - 4.5 mmol/L 02/19/2024 2:46 AM [facility] Chloride 113(H) 98 - 107 mmol/L 02/19/2024 2:46 AM [facility] CO2 20(L) 22 - 29 mmol/L 02/19/2024 2:46 AM [facility] Glucose 134(H) 70 - 115 mg/dL 02/19/2024 2:46 AM [facility] Calcium 9.1 8.4 - 10.2 mg/dL 02/19/2024 2:46 AM [facility] Anion Gap 7 6 - 16 02/19/2024 2:46 AM [facility] BUN/Creatinine Ratio 30(H) 7 - 23 02/19/2024 2:46 AM [facility] Osmolality Calculated 294 275 - 295 mOsm/kg 02/19/2024 2:46 AM [facility] eGFR by CKD-EPI >90 >=90 mL/min/1.7 3 m2 02/19/2024 2:46 AM CDT [facility] Blood BLOOD SPECIMEN / Unknown 02/19/2024 2:00 AM CDT 02/19/2024 2:20 AM CDT Brian Lawrence MD LAB - CHEMISTRY MARSHAL MEDEROS [facility] [address] [place] [address], [place] [phone] * (ABNORMAL) LACTIC ACID BLOOD (02/19/2024 2:00 AM CDT) Lactic Acid-Stat 2.5(H) <=2.0 mmol/L 02/19/2024 2:41 AM CDT [facility] Blood BLOOD SPECIMEN / Unknown Lab Venipuncture / Unknown 02/19/2024 2:00 AM CDT 02/19/2024 2:20 AM CDT Brian Lawrence MD LAB - CHEMISTRY MARSHAL MEDEROS [facility] [address] [place] [address], [place] [phone] * CK BLOOD (02/19/2024 2:00 AM CDT) CK Total 164 30 - 200 U/L 02/19/2024 3:08 AM CDT [facility] Blood BLOOD SPECIMEN / Unknown 02/19/2024 2:00 AM CDT 02/19/2024 2:20 AM CDT Brian Lawrence MD LAB - CHEMISTRY MARSHAL MEDEROS [facility] [address] [place] [phone], [place] [phone] * (ABNORMAL) PHOSPHORUS BLOOD (02/18/2024 3:41 AM CDT) Phosphorus 2.7(L) 2.8 - 5.1 mg/dL 02/18/2024 4:33 AM CDT [facility] Blood BLOOD SPECIMEN / Unknown Lab Venipuncture / Unknown 02/18/2024 3:41 AM CDT 02/18/2024 4:03 AM CDT Brian Lawrence MD LAB - CHEMISTRY MARSHAL MEDEROS Performing Organization Address City/[facility]/ZIP Co de Phone Number [facility] [address] [place] [id number], [facility] [phone] * MAGNESIUM BLOOD (02/18/2024 3:41 AM CDT) Magnesium 2.0 1.6 - 2.6 mg/dL 02/18/2024 4:33 AM [facility] Blood BLOOD SPECIMEN / Unknown Lab Venipuncture / Unknown 02/18/2024 3:41 AM CDT 02/18/2024 4:03 AM CDT Brian Lawrence MD LAB - CHEMISTRY MARSHAL MEDEROS Performing Organization Address City/[facility]/ZIP Co de Phone Number [address] [address], [facility] [phone] * (ABNORMAL) CBC W/O DIFFERENTIAL (02/18/2024 3:41 AM CDT) WBC 5.4 4.0 - 10.7 x10E9/L 02/18/2024 4:27 AM [facility] RBC Count 3.69(L) 4.30 - 5.80 x10E12/L 02/18/2024 4:27 AM [facility] Hemoglobin 11.9(L) 13.3 - 17.5 g/dL 02/18/2024 4:27 AM [facility] Hematocrit 36.0(L) 38.7 - 51.1 % 02/18/2024 4:27 AM [facility] MCV 97.6 80.0 - 98.0 fL 02/18/2024 4:27 AM [facility] MCH 32.2 26.7 - 33.6 pg 02/18/2024 4:27 AM [facility] MCHC 33.1 31.7 - 36.3 g/dL 02/18/2024 4:27 AM [facility] RDW-CV 13.2 11.3 - 14.8 % 02/18/2024 4:27 AM [facility] Platelet Count 145(L) 150 - 420 x10E9/L 02/18/2024 4:27 AM [facility] MPV 02/18/2024 4:27 AM [facility] Comment:Unable to report Blood BLOOD SPECIMEN / Unknown Lab Venipuncture / Unknown 02/18/2024 3:41 AM CDT 02/18/2024 4:03 AM T Brian Lawrence MD LAB - HEMATOLOGY ORD ERABLES [facility] [address] [place] [address], [facility] [phone] * (ABNORMAL) BASIC METABOLIC PANEL (CALCIUM TOTAL) (02/18/2024 3:41 AM CDT) BUN 18 7 - 26 mg/dL 02/18/2024 4:33 AM [facility] Creatinine 0.50(L) 0.71 - 1.16 mg/dL 02/18/2024 4:33 AM [facility] Sodium 139 136 - 145 mmol/L 02/18/2024 4:33 AM [facility] Potassium 4.5 3.5 - 4.5 mmol/L 02/18/2024 4:33 AM [facility] Chloride 109(H) 98 - 107 mmol/L 02/18/2024 4:33 AM [facility] CO2 28 22 - 29 mmol/L 02/18/2024 4:33 AM [facility] Glucose 105 70 - 115 mg/dL 02/18/2024 4:33 AM [facility] Calcium 9.1 8.4 - 10.2 mg/dL 02/18/2024 4:33 AM [facility] Anion Gap 2(L) 6 - 16 02/18/2024 4:33 AM [facility] BUN/Creatinine Ratio 36(H) 7 - 23 02/18/2024 4:33 AM CDT [facility] Osmolality Calculated 290 275 - 295 mOsm/kg 02/18/2024 4:33 AM CDT [facility] eGFR by CKD-EPI >90 >=90 mL/min/1.7 3 m2 02/18/2024 4:33 AM CDT [facility] Blood BLOOD SPECIMEN / Unknown Lab Venipuncture / Unknown 02/18/2024 3:41 AM CDT 02/18/2024 4:03 AM CDT Brian Lawrence MD LAB - CHEMISTRY ORDE GATITO [facility] Organization Address City/State/ZIP Co de Phone Number [facility] [address] [place] [address], [facility] [phone] * (ABNORMAL) LACOSAMIDE (02/18/2024 3:41 AM CDT) Lacosamide 14.3(H) 1.0 - 10.0 ug/mL 02/21/2024 6:09 PM CDT [facility] ([facility]) Comment: INTERPRETIVE INFORMATION: Lacosamide, Serum or Plasma [...] developed and its performance characteristics determined by [facility]. It has not been cleared or approved by the [place] Food and Drug Administration. This test was performed in a CLIA-certified laboratory and is intended for clinical purposes. Performed By: [facility] [address] [place] [id number] [employer] Offbearer: Power Milian MD, PhD CLIA Number: [id number] Blood BLOOD SPECIMEN / Unknown Lab Venipuncture / Unknown 02/18/2024 3:41 AM CDT 02/18/2024 3:58 AM CDT Brian Lawrence MD LAB - CHEMISTRY MARSHAL MEDEROS Performing Organization Address [facility]/ZIP Co de Phone Number [facility]) [address] [place] [address] * (ABNORMAL) LEVETIRACETAM LEVEL (02/18/2024 3:41 AM CDT) Levetiracetam 75(H) 10 - 40 ug/mL 02/20/2024 2:43 AM CDT [facility] ([facility]) Comment: INTERPRETIVE INFORMATION: Keppra (Levetiracetam) Therapeutic Range: ??10-40 ug/mL ?Toxic: ??Not well Established Pharmacokinetics of levetiracetam are affected by renal function. Adverse effects may include somnolence, weakness, headache and vomiting. This levetiracetam (Keppra) immunoassay uses the [employer] reagents, which has known cross-reactivity with the drug brivaracetam (Briviact) and may report inaccurate results. Patients transitioning from levetiracetam to brivaracetam or those who are using both medications should not monitor drug concentrations with the [employer] assay. These patients should be monitored using a validated chromatographic methodology that distinguishes between drugs to determine drug concentrations. Performed By: [facility] [address] [place] [address] [employer] Machine Offbearer: Power Milian MD, PhD CLIA Number: [id number] Blood BLOOD SPECIMEN / Unknown Lab Venipuncture / Unknown 02/18/2024 3:41 AM CDT 02/18/2024 3:58 AM CDT Brian Lawrence MD LAB - THERAPEUTIC DR DIAZ MONITORING ORDERABLES Performing Organization Address City/[facility]/ZIP Co de Phone Number [facility] ([facility]) [address] * (ABNORMAL) URINALYSIS REFLEX MICROSCOPIC REFLEX CULTURE (02/17/2024 3:36 PM CDT) Color UA Yellow Straw, Yellow 02/17/2024 8:15 PM CDT [facility] Clarity UA Clear Clear 02/17/2024 8:15 PM T [facility] Specific [place] UA 1.031(H) 1.005 - 1.030 02/17/2024 8:15 PM [facility] pH UA 5.0 5.0 - 8.0 pH 02/17/2024 8:15 PM [facility] Protein UA Negative Negative 02/17/2024 8:15 PM T [facility] Glucose UA Negative Negative 02/17/2024 8:15 PM [facility] Ketone UA Trace(A) Negative 02/17/2024 8:15 PM [facility] Bilirubin UA Negative Negative 02/17/2024 8:15 PM [facility] Blood UA Negative Negative 02/17/2024 8:15 PM [facility] Nitrite UA Negative Negative 02/17/2024 8:15 PM [facility] Leukocyte Esterase Negative Negative 02/17/2024 8:15 PM [facility] Urobilinogen UA 2.0(A) Negative mg/dL 02/17/2024 8:15 PM [facility] Comment UA Microscopic not indicated. 02/17/2024 8:15 PM [facility] Urine URINE SPECIMEN OBTAINED BY SINGLE CATHETERIZATION OF URINARY BLADDER / Unknown Collection / Unknown 02/17/2024 3:36 PM CDT 02/17/2024 8:04 PM CDT Narrative [facility] - 02/17/2024 8:15 PM CDT Brian Lawrence MD LAB - URINALYSIS ORD ERABLES [facility] [address] [place] [phone], [facility] [phone] * (ABNORMAL) CBC W/O DIFFERENTIAL (02/17/2024 11:47 AM CDT) WBC 5.0 4.0 - 10.7 x10E9/L 02/17/2024 12:19 PM T [facility] RBC Count 3.72(L) 4.30 - 5.80 x10E12/L 02/17/2024 12:19 PM [facility] Hemoglobin 12.1(L) 13.3 - 17.5 g/dL 02/17/2024 12:19 PM [facility] Hematocrit 36.9(L) 38.7 - 51.1 % 02/17/2024 12:19 PM [facility] MCV 99.2(H) 80.0 - 98.0 fL 02/17/2024 12:19 PM [facility] MCH 32.5 26.7 - 33.6 pg 02/17/2024 12:19 PM [facility] MCHC 32.8 31.7 - 36.3 g/dL 02/17/2024 12:19 PM [facility] RDW-CV 13.2 11.3 - 14.8 % 02/17/2024 12:19 PM [facility] Platelet Count 126(L) 150 - 420 x10E9/L 02/17/2024 12:19 PM [facility] MPV 02/17/2024 12:19 PM [facility] Comment:Unable to report Blood BLOOD SPECIMEN / Unknown Lab Venipuncture / Unknown 02/17/2024 11:47 AM CDT 02/17/2024 12:01 PM CDT Brian Lawrence MD LAB - HEMATOLOGY ORD ERABLES [address] [address], [facility] [phone] * PHOSPHORUS BLOOD (02/17/2024 4:11 AM CDT) Phosphorus 3.4 2.8 - 5.1 mg/dL 02/17/2024 5:42 AM T [facility] Blood BLOOD SPECIMEN / Unknown Lab Venipuncture / Unknown 02/17/2024 4:11 AM CDT 02/17/2024 5:29 AM CDT Brian Lawrence MD LAB - CHEMISTRY ORDE GATITO [address] [place] [address], [facility] [phone] * MAGNESIUM BLOOD (02/17/2024 4:11 AM CDT) Magnesium 2.0 1.6 - 2.6 mg/dL 02/17/2024 5:42 AM [facility] Blood BLOOD SPECIMEN / Unknown Lab Venipuncture / Unknown 02/17/2024 4:11 AM CDT 02/17/2024 5:29 AM CDT Brian Lawrence MD LAB - CHEMISTRY MARSHAL MEDEROS [facility] Organization Address City/State/ZIP Co de Phone Number [facility] [address] [place] [phone], [facility] [phone] * (ABNORMAL) BASIC METABOLIC PANEL (CALCIUM TOTAL) (02/17/2024 4:11 AM CDT) Pathologist [facility] BUN 10 7 - 26 mg/dL 02/17/2024 5:42 AM [facility] Creatinine 0.55(L) 0.71 - 1.16 mg/dL 02/17/2024 5:42 AM [facility] Sodium 140 136 - 145 mmol/L 02/17/2024 5:42 AM [facility] Potassium 4.5 3.5 - 4.5 mmol/L 02/17/2024 5:42 AM [facility] Chloride 108(H) 98 - 107 mmol/L 02/17/2024 5:42 AM [facility] CO2 22 22 - 29 mmol/L 02/17/2024 5:42 AM [facility] Glucose 85 70 - 115 mg/dL 02/17/2024 5:42 AM [facility] Calcium 9.3 8.4 - 10.2 mg/dL 02/17/2024 5:42 AM [facility] Anion Gap 10 6 - 16 02/17/2024 5:42 AM [facility] BUN/Creatinine Ratio 18 7 - 23 02/17/2024 5:42 AM [facility] Osmolality Calculated 288 275 - 295 mOsm/kg 02/17/2024 5:42 AM CDT [facility] eGFR by CKD-EPI >90 >=90 mL/min/1.7 3 m2 02/17/2024 5:42 AM CDT [facility] Blood BLOOD SPECIMEN / Unknown Lab Venipuncture / Unknown 02/17/2024 4:11 AM CDT 02/17/2024 5:29 AM CDT Brian Lawrence MD LAB - CHEMISTRY MARSHAL MEDEROS [facility] Organization Address City/State/ZIP Co de Phone Number [facility] [address] [place] [address], [facility] [phone] documented in this encounter Visit Diagnoses Diagnosis Seizure disorder (HCC)- Primary Unspecified epilepsy without mention of intractable epilepsy Severe protein-calorie malnutrition (HCC) Other severe protein-calorie malnutrition 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, not intractable, without status epilepticus (HCC) Encounter for feeding tube placement Unspecified conditions influencing health status Seizures (CMS/HCC) Other convulsions Hypertension, unspecified type Anemia, unspecified type Elevated lactic acid level Other nonspecific abnormal serum enzyme levels Severe protein-calorie malnutrition (HCC) Other severe protein-calorie malnutrition documented in this encounter Administered Medications Inactive Administered Medications - up to 3 most recent administrations Medication Order MAR Action Action Date Dose Rate Site 0.9% NaCl injection 1-10 mL 1-10 mL, Intracatheter, PRN, Other, peripheral line flush, Starting on Tue02/17/24 at 0145, Until Tue02/20/24 at 1852, Flush peripheral IV catheter with 1-10 mL of normal saline before and after medications and prn to clear blood from the line or to verify patency. 0.9% NaCl injection 3 mL 3 mL, Intracatheter, EVERY 8 HOURS, First dose on Tue02/17/24 at 0600, Until Discontinued, Flush peripheral IV catheter with 3 mL of normal saline every 8 hours. $ Given 02/20/2024 2:02 PM CDT 3 mL $ Given 02/19/2024 5:17 PM CDT 3 mL $ Given 02/18/2024 10:02 PM CDT 3 mL acetaminophen (Tylenol) tablet 650 mg 650 mg, Enteral Tube, EVERY 6 HOURS PRN, Headache, Fever, Moderate Pain, Starting on Tue02/17/24 at 0136, Until 02/20/24 at 1852, Patient preference for lesser PRN pain meds [...] patient cannot tolerate oral intake $ Given 02/20/2024 2:01 PM CDT 650 mg NG Tube acetylcysteine (Mucomyst) 20 % solution 600 mg 600 mg (3 mL), Inhalation, EVERY 6 HOURS, First dose (after last modification) on 02/18/24 at 0000, Until Discontinued $ Given 02/19/2024 5:26 AM CDT 600 mg $ Given 02/19/2024 12:21 AM CDT 600 mg $ Given 02/18/2024 5:04 PM CDT 600 mg albuterol-ipratropium (Duo-Neb) nebulizer solution 3 mL 3 mL, Inhalation, EVERY 6 HOURS PRN, Shortness of Breath, Wheezing, Starting on Tue02/17/24 at 0142, Until 02/18/24 at 0707 $ Given 02/18/2024 5:32 AM CDT 3 mL $ Given 02/17/2024 11:23 PM CDT 3 mL albuterol-ipratropium (Duo-Neb) nebulizer solution 3 mL 3 mL, Inhalation, EVERY 6 HOURS, First dose (after last modification) on 02/18/24 at 1200, Until Discontinued $ Given 02/19/2024 5:26 AM CDT 3 mL $ Given 02/19/2024 12:17 AM CDT 3 mL $ Given 02/18/2024 5:04 PM CDT 3 mL albuterol-ipratropium (Duo-Neb) nebulizer solution 3 mL 3 mL, Inhalation, EVERY 6 HOURS PRN, Shortness of Breath, Wheezing, Starting on Tue02/19/24 at 0845, Until 02/20/24 at 1852 aspirin chew tablet 81 mg 81 mg, Enteral Tube, DAILY, First dose on Tue02/17/24 at 0900, Until Discontinued $ Given 02/20/2024 9:47 AM CDT 81 mg NG Tu be $ Given 02/19/2024 9:43 AM CDT 81 mg G Tube $ Given 02/18/2024 10:10 AM CDT 81 mg G Tube atorvastatin (Lipitor) tablet 40 mg 40 mg, Enteral Tube, AT BEDTIME, First dose on Tue02/17/24 at 0215, Until Discontinued $ Given 02/19/2024 9:24 PM CDT 40 mg J Tub e $ Given 02/18/2024 9:59 PM CDT 40 mg J Tube $ Given 02/17/2024 8:24 PM CDT 40 mg G Tube cloBAZam (Onfi) tablet 10 mg 10 mg, Oral, 2 TIMES DAILY, First dose on Tue02/17/24 at 0215, Until Discontinued $ Given 02/20/2024 9:47 AM CDT 10 m g $ Given 02/19/2024 9:24 PM CDT 10 mg $ Given 02/19/2024 9:43 AM CDT 10 mg dextrose 10 % IV bolus 25 g, at 937.5 mL/hr, Intravenous, ONCE, 1 dose, On Tue02/19/24 at 0800, administer FIRST then administer IV regular insulin $ New Bag/Syringe 02/19/2024 10:04 AM CDT 25 g 937.5 mL/hr dextrose 10 % IV bolus 250 mL, at 82.87 mL/hr, Administer over 181 Minutes, CONTINUOUS, Starting on Tue02/19/24 at 0815, Until Tue02/19/24 at 1414, Administer immediately after IV regular insulin to patients with initial (pre-insulin) glucose less than or equal to 200 mg/dL HOLD if initial, pre-insulin glucose is greater than 200 mg/dL $ New Bag/Syringe 02/19/2024 10:46 AM CDT 250 mL 82.87 mL/hr dextrose 10 % IV bolus 12.5 g, at 468.75 mL/hr, Intravenous, PRN, Other, Bedside Glucose less than 70 mg/dL -If NOT able to eat and/or NPO and with IV Access, Starting on Tue02/19/24 at 0730, Until Tue02/20/24 at 1852, If NOT able to eat and/or NPO and with IV Access: For Bedside Glucose 54-69 mg/dL give 12.5 g Dextrose IV STAT For Bedside Glucose LESS than 54 mg/dl verify with a second Bedside Glucose (from a different site) and give 25 g Dextrose IV STAT Re-check and Re-treat blood glucose EVERY , 10-25 minutes until blood glucose GREATER than or equal to 80 mg/dl. NOTIFY PROVIDER OF HYPOGLYCEMIC EVENT. dextrose 10 % IV bolus 25 g, at 937.5 mL/hr, Intravenous, PRN, Other, Bedside Glucose less than 70 mg/dL -If NOT able to eat and/or NPO and with IV Access, Starting on Tue02/19/24 at 0730, Until Tue02/20/24 at 1852, If NOT able to eat and/or NPO and with IV Access: For Bedside Glucose LESS than 54 mg/dl verify with a second Bedside Glucose (from a different site) and give 25 g Dextrose IV STAT Re-check and Re-treat blood glucose EVERY - 10-25 minutes until blood glucose GREATER than or equal to 80 mg/dl. - If repeat bedside glucose 54-79 give 12.5 g Dextrose IV STAT NOTIFY PROVIDER OF HYPOGLYCEMIC EVENT. famotidine (Pepcid) tablet 20 mg 20 mg, Enteral Tube, 2 TIMES DAILY, First dose on Tue02/17/24 at 0215, Until Discontinued $ Given 02/20/2024 9:47 AM CDT 20 mg NG Tube $ Given 02/19/2024 9:24 PM CDT 20 mg J Tube $ Given 02/19/2024 9:43 AM CDT 20 mg G Tube folic acid (Folvite) tablet 1 mg 1 mg, Enteral Tube, DAILY, First dose on Tue02/17/24 at 0900, Until Discontinued $ Given 02/20/2024 9:47 AM CDT 1 mg NG Tu be $ Given 02/19/2024 9:43 AM CDT 1 mg G Tube $ Given 02/18/2024 10:11 AM CDT 1 mg G Tube glucagon (Glucagen) injection 1 mg 1 mg, Subcutaneous, PRN, Bedside Glucose less than 70 mg/dL - If NOT able to eat and/or NPO and withOUT IV Access, Starting on Tue02/19/24 at 0730, Until Tue02/20/24 at 1852, If NOT able to eat and/or NPO and NO IV Access: For Bedside glucose 54-69 mg/dL ? - Give 1 mg subcutaneous For Bedside Glucose LESS than 54 mg/dl ? -?verify with a second bedside glucose (from a different site) ? -?Give 1 mg subcutaneous Re-check and Re-treat blood glucose EVERY 10-25 minutes until blood glucose GREATER than or equal to 80 mg/dl.? NOTIFY PROVIDER OF HYPOGLYCEMIC EVENT. Reconstitute vial with 1 mL of sterile water for injection for a final concentration of 1 mg/mL; shake vial gently; use immediately and discard unused portion glucose (Diabetic Use) oral gel Oral, PRN, Other, Bedside Glucose less than 70 mg/dL, Starting on 02/19/24 at 0730, Until 02/20/24 at 1852, If able to take oral medications: For Bedside Glucose 54 - 69 mg/dL Give 15 grams of oral carbohydrates - 1 glucose gel (see MAR) If patient refuses glucose gel, then offer: - 4 ounces of fruit juice OR - 4 ounces non-diet soda OR - 8 ounces of fat-free milk For Bedside Glucose LESS than 54 mg/dL verify with a second Bedside Glucose (from a different site) - If pt is symptomatic, do not delay treatment - If accuracy of the POC glucose is in question, confirm glucose with a STAT laboratory test Give 30 grams of oral carbohydrates - 2 glucose gels (see MAR) If patient refuses glucose gel, then offer: - 8 ounces of fruit juice OR - 8 ounces non-diet soda OR - 16 ounces of fat-free milk Re-check and Re-treat blood glucose EVERY 10-25 minutes until blood glucose GREATER than or equal to 80 mg/dl. - If on recheck, bedside glucose 54-79 mg/dL - Give 15 grams of oral carbohydrates (see above for choices) NOTIFY PROVIDER OF HYPOGLYCEMIC EVENT. guaiFENesin (Robitussin) solution 15 mL 15 mL, Enteral Tube, EVERY 6 HOURS (03,09,,), First dose on Tue02/17/24 at 0300, Until Discontinued $ Given 02/20/2024 2:00 PM CDT 15 mL NG Tube $ Given 02/20/2024 9:47 AM CDT 15 mL NG Tube $ Given 02/20/2024 2:44 AM CDT 15 mL J Tube heparin injection 5,000 Units 5,000 Units, Subcutaneous, EVERY 8 HOURS, First dose on Tue02/17/24 at 0600, Until Discontinued $ Given 02/20/2024 2:01 PM CDT 5,000 Units Abdominal Tissue $ Given 02/20/2024 5:50 AM CDT 5,000 Units L eft Arm $ Given 02/19/2024 9:22 PM CDT 5,000 Units R ight Arm insulin regular human 1 unit/mL injection 5 Units, Intravenous, ONCE, 1 dose, On Tue02/19/24 at 0800, administer Dextrose 25 g FIRST then IV regular insulin Use prefilled syringe. For non 24 hour pharmacies: Withdraw 5-10mL from insulin bag based on Epic order with dispensing pin and luer lock syringe then admin IVP over 1 minute. $ Given 02/19/2024 9:42 AM CDT 5 Units lacosamide (Vimpat) oral solution 200 mg 200 mg, Per G Tube, 2 TIMES DAILY, First dose on Tue02/17/24 at 0215, Until Discontinued $ Given 02/20/2024 9:47 AM CDT 200 mg $ Given 02/19/2024 9:24 PM CDT 200 mg $ Given 02/19/2024 9:45 AM CDT 200 mg lactated ringers infusion at 75 mL/hr, Intravenous, CONTINUOUS, Starting on Tue02/18/24 at 1000, Until Mobile 02/19/24 at 1135 $ New Bag/Syringe 02/18/2024 10:43 PM CDT 950 mL 75 mL/hr $ New Bag/Syringe 02/18/2024 2:30 PM CDT 75 mL/ hr levETIRAcetam (Keppra) oral solution 2,000 mg 2,000 mg, Enteral Tube, 2 TIMES DAILY, First dose on Tue02/17/24 at 0215, Until Discontinued $ Given 02/20/2024 10:04 AM CDT 2,000 mg G Tube $ Given 02/19/2024 9:34 PM CDT 2,000 mg J Tube $ Given 02/19/2024 9:43 AM CDT 2,000 mg G Tube metoprolol tartrate IR (Lopressor) tablet 25 mg 25 mg, Enteral Tube, 2 TIMES DAILY, First dose on Tue02/17/24 at 0215, Until Discontinued $ Given 02/20/2024 9:47 AM CDT 25 mg NG Tube $ Given 02/19/2024 9:24 PM CDT 25 mg J Tube $ Given 02/19/2024 9:43 AM CDT 25 mg G Tube polyethylene glycol 3350 (Miralax) packet 17 g 17 g, Enteral Tube, 2 TIMES DAILY, First dose on Tue02/17/24 at 0215, Until Discontinued, Mix in 8 ounces of water, juice, soda, coffee or tea prior to administration $ Given 02/20/2024 9:47 AM CDT 17 g NG Tube $ Given 02/19/2024 9:43 AM CDT 17 g G Tube $ Given 02/18/2024 10:09 AM CDT 17 g G Tube senna (Senokot) tablet 8.6 mg 8.6 mg, Enteral Tube, DAILY, First dose on Tue02/17/24 at 0900, Until Discontinued $ Given 02/20/2024 9:47 AM CDT 8.6 mg NG Tu be $ Given 02/19/2024 9:43 AM CDT 8.6 mg G Tube $ Given 02/18/2024 10:11 AM CDT 8.6 mg G Tube thiamine (Vitamin B-1) tablet 100 mg 100 mg, Enteral Tube, DAILY, First dose on Tue02/17/24 at 0900, Until Discontinued $ Given 02/20/2024 9:47 AM CDT 100 mg NG Tu be $ Given 02/19/2024 9:43 AM CDT 100 mg G Tube $ Given 02/18/2024 10:12 AM CDT 100 mg G Tube valproic acid (Depakene) solution 1,250 mg 1,250 mg, Per G Tube, EVERY 6 HOURS, First dose on Tue02/17/24 at 0215, Until Discontinued $ Given 02/20/2024 2:00 PM CDT 1,250 mg $ Given 02/20/2024 5:50 AM CDT 1,250 mg $ Given 02/19/2024 11:57 PM CDT 1,250 mg documented in this encounter Active and Recently Administered Medications Times are shown in CDT. Scheduled Medication Order 02/18/2024 02/19/2024 02/20/2024 0.9% NaCl injection 3 mL(Linked Group 1) 3 mL, Intracatheter, EVERY 8 HOURS, First dose on Tue02/17/24 at 0600, Until Discontinued, Flush peripheral IV catheter with 3 mL of normal saline every 8 hours. 0630 ($ Given - Provider: Rosette De Anda RN)1441 ($ Given - Provider: Shilpa Morton, RN)2202 ($ Given - Provider: Beverly Lerma RN) 0537 (Not Administered - Provider: Beverly Lerma RN - Reason: IV Currently Infusing)1717 ($ Given - Provider: Christina Mosley RN)2126 (Not Administered - Provider: Beverly Lerma RN - Reason: IV Currently Infusing) 0549 (Not Administered - Provider: Beverly Lerma RN - Reason: Loss of Access)1402 ($ Given - Provider: Christina Mosley RN) acetylcysteine (Mucomyst) 20 % solution 600 mg (CANCELED) 600 mg (3 mL), Inhalation, EVERY 6 HOURS, First dose (after last modification) on 02/18/24 at 0000, Until Discontinued 0532 ($ Given - Provider: Susan Webber RCP)1202 ($ Given - Provider: Sophia Marcelino RCP)1704 ($ Given - Provider: Sophia Marcelino RCP) 0021 ($ Given - Provider: Luis Antonio Martinez RCP)0526 ($ Given - Provider: Luis Antonio Martinez RCP) albuterol-ipratropium (Duo-Neb) nebulizer solution 3 mL (CANCELED) 3 mL, Inhalation, EVERY 6 HOURS, First dose (after last modification) on Tue02/18/24 at 1200, Until Discontinued 1202 ($ Given - Provider: Sophia Marcelino RCP)1704 ($ Given - Provider: Sophia Marcelino RCP) 0017 ($ Given - Provider: Luis Antonio Martinez RCP)0526 ($ Given - Provider: Luis Antonio Martinez RCP) aspirin chew tablet 81 mg 81 mg, Enteral Tube, DAILY, First dose on Tue02/17/24 at 0900, Until Discontinued 1010 ($ Given - Provider: Shilpa Morton, ALFRED) 0943 ($ Given - Provider: Christina Mosley RN) 0947 ($ Given - Provider: Christina Mosley RN) atorvastatin (Lipitor) tablet 40 mg 40 mg, Enteral Tube, AT BEDTIME, First dose on Tue02/17/24 at 0215, Until Discontinued 2158 ($ Given - Provider: Beverly Lerma RN) 2123 ($ Given - Provider: Beverly Lerma RN) cloBAZam (Onfi) tablet 10 mg 10 mg, Oral, 2 TIMES DAILY, First dose on Tue02/17/24 at 0215, Until Discontinued 101 ($ Given - Provider: Shilpa Morton RN)2158 ($ Given - Provider: Beverly Lerma RN) 0943 ($ Given - Provider: Christina Mosley RN)2123 ($ Given - Provider: Beverly Lerma RN) 0947 ($ Given - Provider: Christina Mosley RN) dextrose 10 % IV bolus (COMPLETED)(Linked Group 2) 25 g, at 937.5 mL/hr, Intravenous, ONCE, 1 dose, On Tue02/19/24 at 0800, administer FIRST then administer IV regular insulin 1004 ($ New Bag/Syringe - Provider: Christina Mosley RN)1020 (Stopped - Provider: Christina Mosley RN) famotidine (Pepcid) tablet 20 mg 20 mg, Enteral Tube, 2 TIMES DAILY, First dose on Tue02/17/24 at 0215, Until Discontinued 1013 ($ Given - Provider: Shilpa Morton RN)2158 ($ Given - Provider: Beverly Lerma RN) 0943 ($ Given - Provider: Christina Mosley RN)2123 ($ Given - Provider: Beverly Lerma RN) 0947 ($ Given - Provider: Christina Moslye RN) folic acid (Folvite) tablet 1 mg 1 mg, Enteral Tube, DAILY, First dose on Tue02/17/24 at 0900, Until Discontinued 1011 ($ Given - Provider: Shilpa Morton RN) 0943 ($ Given - Provider: Christina Mosley RN) 0947 ($ Given - Provider: Christina Mosley RN) guaiFENesin (Robitussin) solution 15 mL 15 mL, Enteral Tube, EVERY 6 HOURS (03,09,15,21), First dose on Tue02/17/24 at 0300, Until Discontinued 0316 ($ Given - Provider: Rosette De Anda RN)1010 ($ Given - Provider: Shilpa Morton RN)1423 ($ Given - Provider: Shilpa Morton RN)2158 ($ Given - Provider: Beverly Lerma RN) 0406 ($ Given - Provider: Beverly Lerma RN)0943 ($ Given - Provider: Christina Mosley RN)1716 ($ Given - Provider: Christina Mosley RN)2124 ($ Given - Provider: Beverly Lerma RN) 0244 ($ Given - Provider: Beverly Lerma RN)0947 ($ Given - Provider: Christina Mosley RN)1400 ($ Given - Provider: Christina Mosley RN) heparin injection 5,000 Units 5,000 Units, Subcutaneous, EVERY 8 HOURS, First dose on Tue02/17/24 at 0600, Until Discontinued 0630 ($ Given - Provider: Rosette De Anda RN)1423 ($ Given - Provider: Shilpa Morton RN)2159 ($ Given - Provider: Beverly Lerma RN) 0602 ($ Given - Provider: Beverly Lerma RN)1718 ($ Given - Provider: Christina Mosley RN)2122 ($ Given - Provider: Beverly Lerma RN) 0550 ($ Given - Provider: Beverly Lerma RN)1401 ($ Given - Provider: Christina Mosley RN) insulin regular human 1 unit/mL injection (COMPLETED)(Linked Group 2) 5 Units, Intravenous, ONCE, 1 dose, On Tue02/19/24 at 0800, administer Dextrose 25 g FIRST then IV regular insulin Use prefilled syringe. For non 24 hour pharmacies: Withdraw 5-10mL from insulin bag based on Epic order with dispensing pin and luer lock syringe then admin IVP over 1 minute. 0942 ($ Given - Provider: Christina Mosley RN) lacosamide (Vimpat) oral solution 200 mg 200 mg, Per G Tube, 2 TIMES DAILY, First dose on Tue02/17/24 at 0215, Until Discontinued 1035 ($ Given - Provider: Shilpa Morton RN)2213 ($ Given - Provider: Beverly Lerma RN) 0945 ($ Given - Provider: Christina Mosley RN)212 ($ Given - Provider: Beevrly Lerma RN) 0947 ($ Given - Provider: Christina Mosley RN) levETIRAcetam (Keppra) oral solution 2,000 mg 2,000 mg, Enteral Tube, 2 TIMES DAILY, First dose on Tue02/17/24 at 0215, Until Discontinued 1034 ($ Given - Provider: Shilpa Morton RN)2213 ($ Given - Provider: Beverly Lerma RN) 0943 ($ Given - Provider: Christina Mosley RN)2134 ($ Given - Provider: Beverly Lerma RN) 1004 ($ Given - Provider: Christina Mosley RN) metoprolol tartrate IR (Lopressor) tablet 25 mg 25 mg, Enteral Tube, 2 TIMES DAILY, First dose on Tue02/17/24 at 0215, Until Discontinued 1014 ($ Given - Provider: Shilpa Morton RN)2159 ($ Given - Provider: Beverly Lerma RN) 0943 ($ Given - Provider: Christina Mosley RN)2123 ($ Given - Provider: Beverly Lerma RN) 0947 ($ Given - Provider: Christina Mosley RN) polyethylene glycol 3350 (Miralax) packet 17 g 17 g, Enteral Tube, 2 TIMES DAILY, First dose on Tue02/17/24 at 0215, Until Discontinued, Mix in 8 ounces of water, juice, soda, coffee or tea prior to administration 1009 ($ Given - Provider: Shilpa Morton RN)2203 (Not Administered - Provider: Beverly Lerma RN - Reason: Other - Comment: patient had a loose bowel motion) 0943 ($ Given - Provider: Christina Mosley RN)213 (Not Administered - Provider: Beverly Lerma RN - Reason: Other - Comment: patient had loose large movement) 0947 ($ Given - Provider: Christina Mosley RN) senna (Senokot) tablet 8.6 mg 8.6 mg, Enteral Tube, DAILY, First dose on Tue02/17/24 at 0900, Until Discontinued 1011 ($ Given - Provider: Shilpa Morton RN) 0943 ($ Given - Provider: Christina Mosley RN) 0947 ($ Given - Provider: Christina Mosley RN) thiamine (Vitamin B-1) tablet 100 mg 100 mg, Enteral Tube, DAILY, First dose on Tue02/17/24 at 0900, Until Discontinued 1012 ($ Given - Provider: Shilpa Morton RN) 0943 ($ Given - Provider: Christina Mosley RN) 0947 ($ Given - Provider: Christina Mosley RN) valproic acid (Depakene) solution 1,250 mg 1,250 mg, Per G Tube, EVERY 6 HOURS, First dose on Tue02/17/24 at 0215, Until Discontinued 0021 ($ Given - Provider: Rosette De Anda RN)0629 ($ Given - Provider: Rosette De Anda RN)1420 ($ Given - Provider: Shilpa Morton RN)1743 ($ Given - Provider: Shilpa Morton RN)2321 ($ Given - Provider: Beverly Lerma RN) 0602 ($ Given - Provider: Beverly Lerma RN)1252 ($ Given - Provider: Christina Mosley RN)1716 ($ Given - Provider: Christina Mosley RN)2357 ($ Given - Provider: Beverly Lerma RN) 0550 ($ Given - Provider: Beverly Lerma RN)1400 ($ Given - Provider: Christina Mosley RN) Continuous Medication Order 02/18/2024 02/19/2024 02/20/2024 dextrose 10 % IV bolus () 250 mL, at 82.87 mL/hr, Administer over 181 Minutes, CONTINUOUS, Starting on 02/19/24 at 0815, Until 02/19/24 at 1414, Administer immediately after IV regular insulin to patients with initial (pre-insulin) glucose less than or equal to 200 mg/dL HOLD if initial, pre-insulin glucose is greater than 200 mg/dL 1046 ($ New Bag/Syringe - Provider: Christina Mosley RN)1717 (Stopped - Provider: Christina Mosley RN) lactated ringers infusion (CANCELED) at 75 mL/hr, Intravenous, CONTINUOUS, Starting on 02/18/24 at 1000, Until 02/19/24 at 1135 1430 ($ New Bag/Syringe - Provider: Shilpa Morton, RN)2243 ($ New Bag/Syringe - Provider: Beverly Lerma RN) PRN Medication Order 02/18/2024 02/19/2024 02/20/2024 0.9% NaCl injection 1-10 mL(Linked Group 1) 1-10 mL, Intracatheter, PRN, Other, peripheral line flush, Starting on Tue02/17/24 at 0145, Until 02/20/24 at 1852, Flush peripheral IV catheter with 1-10 mL of normal saline before and after medications and prn to clear blood from the line or to verify patency. acetaminophen (Tylenol) tablet 650 mg 650 mg, Enteral Tube, EVERY 6 HOURS PRN, Headache, Fever, Moderate Pain, Starting on Tue02/17/24 at 0136, Until 02/20/24 at 1852, Patient preference for lesser PRN pain meds [...] first unless patient cannot tolerate oral intake 1401 ($ Given - Provider: Christina Mosley RN) albuterol-ipratropium (Duo-Neb) nebulizer solution 3 mL (CANCELED) 3 mL, Inhalation, EVERY 6 HOURS PRN, Shortness of Breath, Wheezing, Starting on Tue02/17/24 at 0142, Until 02/18/24 at 0707 0532 ($ Given - Provider: Susan Webber RCP) albuterol-ipratropium (Duo-Neb) nebulizer solution 3 mL 3 mL, Inhalation, EVERY 6 HOURS PRN, Shortness of Breath, Wheezing, Starting on 02/19/24 at 0845, Until 02/20/24 at 1852 bisacodyl (Dulcolax) suppository 10 mg 10 mg, Rectal, DAILY PRN, Constipation, Starting on Tue02/17/24 at 0136, Until Tue02/20/24 at 185 calcium carbonate (500 mg elemental Ca/5 mL) suspension 500 mg, Enteral Tube, EVERY 6 HOURS PRN, GI Upset, Starting on Tue02/17/24 at 0142, Until Tue02/20/24 at 1852, Shake well before using. dextrose 10 % IV bolus(Linked Group 3) 12.5 g, at 468.75 mL/hr, Intravenous, PRN, Other, Bedside Glucose less than 70 mg/dL -If NOT able to eat and/or NPO and with IV Access, Starting on Tue02/19/24 at 0730, Until Tue02/20/24 at 185, If NOT able to eat and/or NPO and with IV Access: For Bedside Glucose 54-69 mg/dL give 12.5 g Dextrose IV STAT For Bedside Glucose LESS than 54 mg/dl verify with a second Bedside Glucose (from a different site) and give 25 g Dextrose IV STAT Re-check and Re-treat blood glucose EVERY , 10-25 minutes until blood glucose GREATER than or equal to 80 mg/dl. NOTIFY PROVIDER OF HYPOGLYCEMIC EVENT. dextrose 10 % IV bolus(Linked Group 3) 25 g, at 937.5 mL/hr, Intravenous, PRN, Other, Bedside Glucose less than 70 mg/dL -If NOT able to eat and/or NPO and with IV Access, Starting on Tue02/19/24 at 0730, Until Tue02/20/24 at 185, If NOT able to eat and/or NPO and with IV Access: For Bedside Glucose LESS than 54 mg/dl verify with a second Bedside Glucose (from a different site) and give 25 g Dextrose IV STAT Re-check and Re-treat blood glucose EVERY - 10-25 minutes until blood glucose GREATER than or equal to 80 mg/dl. - If repeat bedside glucose 54-79 give 12.5 g Dextrose IV STAT NOTIFY PROVIDER OF HYPOGLYCEMIC EVENT. glucagon (Glucagen) injection 1 mg(Linked Group 3) 1 mg, Subcutaneous, PRN, Bedside Glucose less than 70 mg/dL - If NOT able to eat and/or NPO and withOUT IV Access, Starting on Tue02/19/24 at 0730, Until Tue02/20/24 at 1852, If NOT able to eat and/or NPO and NO IV Access: For Bedside glucose 54-69 mg/dL ? - Give 1 mg subcutaneous For Bedside Glucose LESS than 54 mg/dl ? -?verify with a second bedside glucose (from a different site) ? -?Give 1 mg subcutaneous Re-check and Re-treat blood glucose EVERY 10-25 minutes until blood glucose GREATER than or equal to 80 mg/dl.? NOTIFY PROVIDER OF HYPOGLYCEMIC EVENT. Reconstitute vial with 1 mL of sterile water for injection for a final concentration of 1 mg/mL; shake vial gently; use immediately and discard unused portion glucose (Diabetic Use) oral gel Oral, PRN, Other, Bedside Glucose less than 70 mg/dL, Starting on Tue02/19/24 at 0730, Until Tue02/20/24 at 1852, If able to take oral medications: For Bedside Glucose 54 - 69 mg/dL Give 15 grams of oral carbohydrates - 1 glucose gel (see MAR) If patient refuses glucose gel, then offer: - 4 ounces of fruit juice OR - 4 ounces non-diet soda OR - 8 ounces of fat-free milk For Bedside Glucose LESS than 54 mg/dL verify with a second Bedside Glucose (from a different site) - If pt is symptomatic, do not delay treatment - If accuracy of the POC glucose is in question, confirm glucose with a STAT laboratory test Give 30 grams of oral carbohydrates - 2 glucose gels (see MAR) If patient refuses glucose gel, then offer: - 8 ounces of fruit juice OR - 8 ounces non-diet soda OR - 16 ounces of fat-free milk Re-check and Re-treat blood glucose EVERY 10-25 minutes until blood glucose GREATER than or equal to 80 mg/dl. - If on recheck, bedside glucose 54-79 mg/dL - Give 15 grams of oral carbohydrates (see above for choices) NOTIFY PROVIDER OF HYPOGLYCEMIC EVENT. Linked Groups Order Group 1: SALINE LOCK, INSERT AND MAINTAIN (CANCELED) Routine, CONTINUOUS, Starting on Tue02/17/24 at 0200, Until Specified, New collection And 0.9% NaCl injection 3 mLJump to med 3 mL, Intracatheter, EVERY 8 HOURS, First dose on Tue02/17/24 at 0600, Until Discontinued, Flush peripheral IV catheter with 3 mL of normal saline every 8 hours. And 0.9% NaCl injection 1-10 mLJump to med 1-10 mL, Intracatheter, PRN, Other, peripheral line flush, Starting on Tue02/17/24 at 0145, Until Tue02/20/24 at 1852, Flush peripheral IV catheter with 1-10 mL of normal saline before and after medications and prn to clear blood from the line or to verify patency. Group 2: dextrose 10 % IV bolus (COMPLETED)Jump to med 25 g, at 937.5 mL/hr, Intravenous, ONCE, 1 dose, On Tue02/19/24 at 0800, administer FIRST then administer IV regular insulin And insulin regular human 1 unit/mL injection (COMPLETED)Jump to med 5 Units, Intravenous, ONCE, 1 dose, On Tue02/19/24 at 0800, administer Dextrose 25 g FIRST then IV regular insulin Use prefilled syringe. For non 24 hour pharmacies: Withdraw 5-10mL from insulin bag based on Epic order with dispensing pin and luer lock syringe then admin IVP over 1 minute. Group 3: dextrose 10 % IV bolusJump to med 12.5 g, at 468.75 mL/hr, Intravenous, PRN, Other, Bedside Glucose less than 70 mg/dL -If NOT able to eat and/or NPO and with IV Access, Starting on Tue02/19/24 at 0730, Until Tue02/20/24 at 1852, If NOT able to eat and/or NPO and with IV Access: For Bedside Glucose 54-69 mg/dL give 12.5 g Dextrose IV STAT For Bedside Glucose LESS than 54 mg/dl verify with a second Bedside Glucose (from a different site) and give 25 g Dextrose IV STAT Re-check and Re-treat blood glucose EVERY , 10-25 minutes until blood glucose GREATER than or equal to 80 mg/dl. NOTIFY PROVIDER OF HYPOGLYCEMIC EVENT. Or dextrose 10 % IV bolusJump to med 25 g, at 937.5 mL/hr, Intravenous, PRN, Other, Bedside Glucose less than 70 mg/dL -If NOT able to eat and/or NPO and with IV Access, Starting on 02/19/24 at 0730, Until 02/20/24 at 1852, If NOT able to eat and/or NPO and with IV Access: For Bedside Glucose LESS than 54 mg/dl verify with a second Bedside Glucose (from a different site) and give 25 g Dextrose IV STAT Re-check and Re-treat blood glucose EVERY - 10-25 minutes until blood glucose GREATER than or equal to 80 mg/dl. - If repeat bedside glucose 54-79 give 12.5 g Dextrose IV STAT NOTIFY PROVIDER OF HYPOGLYCEMIC EVENT. Or glucagon (Glucagen) injection 1 mgJump to med 1 mg, Subcutaneous, PRN, Bedside Glucose less than 70 mg/dL - If NOT able to eat and/or NPO and withOUT IV Access, Starting on 02/19/24 at 0730, Until 02/20/24 at 1852, If NOT able to eat and/or NPO and NO IV Access: For Bedside glucose 54- 69 mg/dL ? - Give 1 mg subcutaneous For Bedside Glucose LESS than 54 mg/dl ? -?verify with a second bedside glucose (from a different site) ? -?Give 1 mg subcutaneous Re-check and Re-treat blood glucose EVERY 10-25 minutes until blood glucose GREATER than or equal to 80 mg/dl.? NOTIFY PROVIDER OF HYPOGLYCEMIC EVENT. 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
--- OUTSIDE RECORDS SUMMARY | 2024-06-08 05:29 | XMS_ITS | Encounter Summary ---
Author Organization [facility] Address [address] [place] [address] Care Team Providers Care Administrative Appeals Tribunal Member Name Role Phone Elizabeth Sullivan RN Unavailable [phone] Dany Monsivais MD Primary Care Provider Reason for Visit * Reason Comments Pain Neck BIBems from SNF with c/o anterior neck pain around trach site. Pt states he changed his trach this evening and has been experiencing pain since. 95% on RA. A&Ox4. Encounter Details Date Type Department Care Team (Late st Contact Info) Description 11/18/2023 1:54 AM CDT - 11/18/2023 6:38 AM T Emergency [facility] EMERGENCY DEPARTMENT [address] [place] [address] [phone] Serjio Vilchis MD [address] [place] [address] [place] [address] Tracheostomy complication, unspecified complication type (HCC) Discharge Disposition: Halfway Facility Social History Tobacco Use Types Packs/Day [...] and heating? Not hard at all 06/19/2023 [facility] - Occupational Stress [...] Sign Reading Time Taken Comments Blood Pressure 145/88 11/18/2023 5:00 AM CDT Pulse 74 11/18/2023 1:59 AM CDT Temperature 36.9 ??C (98.5 ??F) 11/18/2023 1:59 AM CD T Respiratory Rate 18 11/18/2023 5:00 AM CDT Oxygen Saturation 97% 11/18/2023 5:00 AM CDT Inhaled Oxygen Concentration - - Weight - [...] this encounter Discharge Instructions * Discharge Instructions* Maribell Perales MD - 11/18/2023 3:53 AM CDT You were seen at the ER for trach pain. Please follow special instructions of: follow up with your PCP. Please take the prescribed and continue home medications as directed. Please follow up with your primary care provider in regards to your ED visit today. If you start to develop chest pain, shortness of breath, headaches, dizziness, feeling like your going to pass out, nausea or vomiting, please return to the ED right away. Otherwise follow up as directed. documented in this encounter Medications at Time [...] 06/28/2023 02/20/2024 documented as of this encounter ED Notes * Bee Taveras RN - 11/18/2023 5:34 AM CDT [facility] ETA 0600 * Bee Taveras RN - 11/18/2023 5:25 AM CDT [facility] ETA 0730. Will call back with trip number. * Francheska Ballesteros RN - 11/18/2023 4:31 AM CDT [facility] called for transport back to [facility]. Trip #[id number]. Eta 0500. Report called to nurse at [facility]. * Maribell Perales MD - 11/18/2023 3:40 AM CDT [facility] Emergency Department Emergency Medicine Resident Note HPI: Bi Tabor is a 63 year old male who p/w trach pain. Pt notes pain s/p trach exchange 2 days ago.Pain has since resolved. Pt would like Tylenol. Physical: BP 145/88 Pulse 74 Temp 98.5 ??F (36.9 ??C) (Temporal) Resp 18 SpO2 97% General: Alert, no apparent distress, well developed, well nourished HEENT: Normocephalic, atraumatic Eyes: PERRL, EOMI, sclera and conjunctiva clear Nose: no rhinorrhea Ears: no otorrhea Mouth: moist, pink Neck: trach in place Cardiac: RRR, normal S1/S2, no murmurs, rubs, gallop. 2+ radial pulses Lung: CTAB, no wheezes, rales, or rhonchi; nonlabored breathing, no use of accessory muscles Extremities: No cyanosis, no peripheral pitting edema. L AKA Abdomen: Soft, non-tender, non-distended, no guarding, no pulsatile mass appreciated. BS+. PEG to left abdomen, 6 at phalange : Deferred Skin: No rashes/lesions/masses appreciated Neuro: CNII-XII grossly intact, moving all 4 extremities Psych: Appropriate situational affect Medical Decision Making & ED Course: Problems: Tracheostomy site pain DDx Cellulitis vs dislodgement vs irritation vs metabolic abnormality vs other Plan - Labs, imaging Summary Bi Tabor is a 63 year old male with pmhx of CVA's, vascular dementia, TBI c/b epilepsy, CHRF s/p trach, dysphagia c/b chronic aspiration s/p PEG, HTN, HLD, PAD s/p L AKA presenting for trach pain. ED Course: - Reviewed triage notes/prior records if available, vitals reviewed, pt assessed, orders placed. - ED Course as of 11/18/23 0739 TueNov 18, 2023 0345 No leukocytosis. No anemia. Platelets wnl. No SAMANTHA. LFTs wnl. No gross electrolyte abnormalities. AG 9, no gap. [AB] 0345 Pt evaled. Conversant on RA. Afebrile. Trach Peg 6 at phalange LLE AKA [AB] [address] on XR [AB] 0430 Platelet Count(!): 135 MARI. No leukocytosis. No anemia. Platelets wnl. No SAMANTHA. LFTs wnl. No gross electrolyte abnormalities. AG 9, no gap. [AB] 0450 Patent airway without radiographic evidence of prevertebral soft tissue swelling. [AB] ED Course User Index [AB] Maribell Perales MD Clinical Impressions as of 11/18/23 0739 Tracheostomy complication, unspecified complication type (HCC) Orders Placed This Encounter XR NECK SOFT TISSUE Standing Status: Standing Number of Occurrences: 1 Order Specific Question: What specific clinical question do you want answered? Answer: r/o Order Specific Question: Release to patient Answer: Immediate CBC W AUTO DIFFERENTIAL Standing Status: Standing Number of Occurrences: 1 Order Specific Question: Release to patient Answer: Immediate COMPREHENSIVE METABOLIC PANEL Standing Status: Standing Number of Occurrences: 1 Order Specific Question: Release to patient Answer: Immediate acetaminophen (Tylenol) solution 500 mg Diagnosis: 1. Tracheostomy complication, unspecified complication type (HCC) Disposition: Discharged. Associated attestation - Serjio Vilchis MD - 11/19/2023 4:54 PM CDT 11/19/2023 16:53 For this patient encounter, I reviewed the documentation by the resident, procedures (if done), treatment plan, and medical decision making; and I had [id number] time with this patient. Please see their documentation for further details. I have conducted an independent evaluation of this patient including a focused history and a physical exam - which are in concordance with the resident documentation except as otherwise noted. Serjio Vilchis MD Emergency Medicine documented in this encounter Plan of Treatment Upcoming Encounters Date Type Department Care Team (Late st Contact Info) Description 12/05/2024 1:00 PM CDT Office Visit [facility] - Neurology [address] [place] [address], [facility] [place] [phone] Sean Raymundo, [address] [place] [address] [place] [phone] documented as of this encounter Procedures Procedure Name Priority Date/Time Associated Diagnosis Comments CBC W AUTO DIFFERENTIAL STAT 11/18/2023 3:02 AM CDT COMPREHENSIVE METABOLIC PANEL STAT 11/18/2023 3:02 AM CDT XR NECK SOFT TISSUE STAT 11/18/2023 2 :27 AM CDT Tracheostomy complication, unspecified complication type (HCC) documented in this encounter Results * (ABNORMAL) COMPREHENSIVE METABOLIC PANEL (11/18/2023 3:02 AM CDT) BUN 11 7 - 26 mg/dL 11/18/2023 3:34 AM CDT [facility] LABORATORY [facility] Creatinine 0.62(L) 0.71 - 1.16 mg/dL 11/18/2023 3:34 AM CDT [facility] Sodium 140 136 - 145 mmol/L 11/18/2023 3:34 AM [facility] Potassium 4.5 3.5 - 4.5 mmol/L 11/18/2023 3:34 AM [facility] Chloride 105 98 - 107 mmol/L 11/18/2023 3:34 AM [facility] CO2 26 22 - 29 mmol/L 11/18/2023 3:34 AM [facility] Glucose 86 70 - 115 mg/dL 11/18/2023 3:34 AM [facility] Calcium 9.8 8.4 - 10.2 mg/dL 11/18/2023 3:34 AM [facility] Protein Total 8.0 6.0 - 8.3 g/dL 11/18/2023 3:34 AM [facility] Albumin 3.6 3.4 - 5.0 g/dL 11/18/2023 3:34 AM [facility] Bilirubin Total 0.4 0.2 - 1.2 mg/dL 11/18/2023 3:34 AM [facility] Alkaline Phosphatase 101 40 - 150 U/L 11/18/2023 3:34 AM [facility] ALT 20 5 - 55 U/L 11/18/2023 3:34 AM [facility] AST 22 5 - 34 U/L 11/18/2023 3:34 AM [facility] Anion Gap 9 6 - 16 11/18/2023 3:34 AM [facility] BUN/Creatinine Ratio 18 7 - 23 11/18/2023 3:34 AM [facility] Osmolality Calculated 289 275 - 295 mOsm/kg 11/18/2023 3:34 AM [facility] Albumin/Globulin Ratio 0.8(L) 1.1 - 2.3 11/18/2023 3:34 AM [facility] eGFR by CKD-EPI >90 >=90 mL/min/1.7 3 m2 11/18/2023 3:34 AM [facility] Blood BLOOD SPECIMEN / Unknown Venipuncture / Unknown 11/18/2023 3:02 AM CDT 11/18/2023 3:05 AM T Yash Webber PA-C LAB - CHEMISTRY OR DERABLES [facility] [address] [place] [address], [facility] [phone] * (ABNORMAL) CBC W AUTO DIFFERENTIAL (11/18/2023 3:02 AM CDT) WBC 7.0 4.0 - 10.7 x10E9/L 11/18/2023 3:31 AM [facility] RBC Count 4.72 4.30 - 5.80 x10E12/L 11/18/2023 3:31 AM [facility] Hemoglobin 15.3 13.3 - 17.5 g/dL 11/18/2023 3:31 AM [facility] Hematocrit 44.9 38.7 - 51.1 % 11/18/2023 3:31 AM [facility] MCV 95.1 80.0 - 98.0 fL 11/18/2023 3:31 AM [facility] MCH 32.4 26.7 - 33.6 pg 11/18/2023 3:31 AM [facility] MCHC 34.1 31.7 - 36.3 g/dL 11/18/2023 3:31 AM [facility] RDW-CV 13.9 11.3 - 14.8 % 11/18/2023 3:31 AM [facility] Platelet Count 135(L) 150 - 420 x10E9/L 11/18/2023 3:31 AM [facility] MPV 13.5(H) 7.8 - 11.4 fL 11/18/2023 3:31 AM [facility] Neutrophil % 43.5 41.0 - 74.0 % 11/18/2023 3:31 AM [facility] Lymphocyte % 43.4 17.0 - 47.0 % 11/18/2023 3:31 AM [facility] Monocyte % 6.7 3.0 - 11.0 % 11/18/2023 3:31 AM [facility] Eosinophil % 5.7 0.0 - 7.0 % 11/18/2023 3:31 AM CDT [facility] Basophil % 0.4 0.0 - 1.6 % 11/18/2023 3:31 AM T [facility] Immature Granulocytes % 0.3 0.0 - 1.0 % 11/18/2023 3:31 AM T [facility] Neutrophil Absolute 3.05 1.60 - 7.50 x10E9/L 11/18/2023 3:31 AM T [facility] Lymphocyte Absolute 3.05 1.00 - 4.40 x10E9/L 11/18/2023 3:31 AM T [facility] Monocyte Absolute 0.47 0.15 - 1.00 x10E9/L 11/18/2023 3:31 AM [facility] Eosinophil Absolute 0.40 0.00 - 0.60 x10E9/L 11/18/2023 3:31 AM [facility] Basophil Absolute 0.03 0.00 - 0.13 x10E9/L 11/18/2023 3:31 AM [facility] Blood BLOOD SPECIMEN / Unknown Venipuncture / Unknown 11/18/2023 3:02 AM CDT 11/18/2023 3:05 AM CDT Yash Webber PA-C LAB - HEMATOLOGY O RDERABLES [facility] [address] [place] [address], [facility] [phone] * XR NECK SOFT TISSUE (11/18/2023 2:27 AM CDT) Anatomical Region Laterality Modality Head Radiographic Cynthia ging 11/18/2023 4:26 AM CDT Impressions 11/18/2023 8:13 AM CDT IMPRESSION: Patent airway without prevertebral soft tissue swelling or definite epiglottic enlargement. No definite tracheostomy tube displacement identified.. Report dictated by Herminio Ivy MD (residential building inspector). I, Hermes Lynn MD have personally reviewed and interpreted this examination/study. > Interpreting Provider: Hermes Lynn MD on 11/18/2023 8:13 AM Narrative 11/18/2023 8:13 AM CDT PROCEDURE: ??XR NECK SOFT TISSUE, DATE/TIME OF EXAM: ??11/18/2023 2:27 AM, LOCATION ??[facility] INDICATION: J95.00: Tracheostomy complication, unspecified complication type [...] disease at C5-C6 and C6-C7. Procedure Note Hermes Lynn MD - 11/18/2023 PROCEDURE: XR NECK SOFT TISSUE, DATE/TIME OF EXAM: 11/18/2023 2:27 AM, LOCATION [facility] INDICATION: J95.00: Tracheostomy complication, unspecified complication type [...] Report dictated by Herminio Ivy MD (residential building inspector). I, Hermes Lynn MD have personally reviewed and interpreted this examination/study. > Interpreting Provider: Hermes Lynn MD on 11/18/2023 8:13 AM Yash Webber PA-C DIAGNOSTIC IMAGING ORDERABLES documented in this encounter Visit Diagnoses Diagnosis Tracheostomy complication, unspecified complication type (HCC) documented in this encounter Administered Medications Inactive Administered Medications - up to 3 most recent administrations Medication Order MAR Action Action Date Dose Rate Site acetaminophen (Tylenol) solution 500 mg 500 mg, Per G Tube, NOW, 1 dose, On Tue11/18/23 at 0400, Patient preference for lesser PRN pain meds [...] patient cannot tolerate oral intake $ Given 11/18/2023 4:02 AM CDT 500 mg documented in this encounter Active and Recently Administered Medications Times are shown in CDT. 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
--- OUTSIDE RECORDS SUMMARY | 2024-06-08 05:29 | XMS_ITS | Encounter Summary ---
Author Organization [facility] Address [address] [place] [address] Care Team Providers Care Sql Consultant Name Role Phone Elizabeth Sullivan RN Unavailable [phone] Dany Monsivais MD Primary Care Provider Reason for Visit * Reason Comments Pain Abdominal BIBEMS C/O abd pain that stared x2 days. Encounter Details Date Type Department Care Team (Late st Contact Info) Description 05/15/2024 10:08 AM BURRING MACHINE OPERATOR - 05/15/2024 11:44 PM [facility] Emergency [facility] EMERGENCY DEPARTMENT [address] [place] [address] [phone] Caio Elder MD [address] [place] [address] [place] [phone] Emlo Johnson MD [address] [place] [address] [place] [phone] Abdominal pain, generalized (Primary Dx); Diverticulosis; Prostate enlargement; Nephrolithiasis Discharge Disposition: Residential Facility Social History Tobacco Use Types Packs/Day [...] and heating? Not hard at all 06/19/2023 [facility] - Occupational Stress [...] Sign Reading Time Taken Comments Blood Pressure 163/93 05/15/2024 11:00 PM BURRING MACHINE OPERATOR Pulse 100 05/15/2024 11:22 PM BURRING MACHINE OPERATOR Temperature 36.9 ??C (98.4 ??F) 05/15/2024 10:[address] Respiratory Rate 13 05/15/2024 11:22 PM BURRING MACHINE OPERATOR Oxygen Saturation 100% 05/15/2024 11:22 PM BURRING MACHINE OPERATOR Inhaled Oxygen Concentration 28% 05/15/2024 5 :30 PM BURRING MACHINE OPERATOR Weight - - Height - - Body [...] this encounter Discharge Instructions * Discharge Instructions* Chai Pinto DO - 05/15/2024 9:51 PM BURRING MACHINE OPERATOR You were evaluated abdominal pain. While in the ED there was noted prostatomegaly, diverticulitis and non obstructing kidney stone. You will be discharged with outpatient medication and outpatient referral. ING MACHINE OPERATOR documented in this encounter Medications at Time [...] route every 6 hours as needed 02/28/2023 cloBAZam (Onfi) 10 MG tablet Take 1 (one) tablet by mouth 2 times daily 60 tablet 5 05/15/2024 famotidine (Pepcid) 20 MG tablet 1 (one) tablet by Enteral Tube route 2 times daily 60 tablet 02/28/2023 folic acid (Folvite) 1 MG tablet 1 (one) tablet by Enteral Tube route once daily 04/01/2022 guaiFENesin (Robitussin) 100 MG/5ML solution 15 mL by Enteral Tube route Every 6 Hours (03,09,15,21) 200 mL 02/28/2023 lacosamide (Vimpat) 200 MG tablet Take 1 (one) tablet by mouth 2 times daily for 90 days 60 tablet 2 05/15/2024 08/13/2024 levETIRAcetam (Keppra) 100 MG/ML oral solution 20 mL by Enteral Tube route 2 times daily for 90 days 1200 mL 2 05/15/2024 08/13/2024 metoprolol tartrate IR (Lopressor) 25 MG tablet [...] by Enteral Tube route once daily 04/01/2022 valproic acid (Depakene) 250 MG/5ML solution 25 mL by Per G Tube route every 6 hours 473 mL 05/15/2024 doxycycline monohydrate 100 MG tablet Take 1 (one) tablet by mouth 2 times daily for 7 days 14 tablet 05/15/2024 05/22/2024 documented as of this encounter ED Notes * Duy Dias RN - 05/15/2024 11:02 PM CST Called [facility] for pt transport back to truck number [id number] ETA 1625. ING MACHINE OPERATOR * Caio Elder MD - 05/15/2024 2:58 PM CST Emergency Physician note I have performed an independent history and physical examination and discussed the patient's management with the resident. I agree with the findings, assessment and plan of care as documented by the resident except as noted below. Any radiology studies performed during the patient's Emergency Department stay were ordered and reviewed directly under my supervision. History: Patient was poor historian. Student attempted to contact patient's facility but was unableto get hold them for further information. EMS states that the patient had an x-ray done of his abdomen which showed abnormal abdominal wall and sent for evaluation. Patient did not state why he was here when asked questioning he did state that has abdomen has been hurting for several days. No further history obtainable. Patient came with KUB radiology interpretation of, ???prominent edema/inflammation/contusion and subcutaneous fat at the right lateral wall of the lower abdomen/pelvis, developing since the 04/19/2024 abdominal x-ray Past medical history positive CVA with left-sided weakness, traumatic brain injury, tracheostomy and G-tube Past Medical History: Diagnosis Date Cerebrovascular disease [...] Maxillary Antrostomy, Rihjy Anterior Ethmoidectomy Social History Tobacco Use Smoking status: Former Current packs/day: 1.00 Average packs/day: 1 pack/day for 15.0 years (15.0 ttl pk-yrs) Types: Cigarettes Smokeless tobacco: Never Vaping Use Vaping status: Never Used Substance Use Topics Alcohol use: No Comment: last drink 2015 Drug use: No Comment: occasional Allergies Allergen Reactions Clonazepam Psychiatric hallucinations Current Facility-Administered Medications Medication iopamidol (Isovue 370) 76 % contrast Current Outpatient Medications Medication Sig acetaminophen (Tylenol) 325 MG tablet 2 (two) [...] by Enteral Tube route at bedtime bisacodyl (Dulcolax) 10 MG suppository Insert 1 (one) suppository into the rectum once daily as needed for Constipation Calcium Carbonate Antacid (calcium carbonate, 500 mg elemental Ca/5 mL,) 1250 MG/5ML suspension 5 mL by Enteral Tube route every 6 hours as needed cloBAZam (Onfi) 10 MG tablet Take 1 (one) tablet by mouth 2 times daily famotidine (Pepcid) 20 MG tablet 1 (one) tablet by Enteral Tube route 2 times daily folic acid (Folvite) 1 MG tablet 1 (one) tablet by Enteral Tube route once daily guaiFENesin (Robitussin) 100 MG/5ML solution 15 mL by Enteral Tube route Every 6 Hours (03,09,15,21) lacosamide (Vimpat) 200 MG tablet 1 (one) [...] by mouth once daily polyethylene glycol 3350 (Miralax) 17 g packet 17 (seventeen) g by Enteral Tube route 2 times daily senna (Senokot) 8.6 MG tablet 1 (one) tablet by Enteral Tube route once daily thiamine (Vitamin B-1) 100 MG tablet 1 (one) tablet by Enteral Tube route once daily valproic acid (Depakene) 250 MG/5ML solution 25 mL by Per G Tube route every 6 hours Exam: Vitals: 05/15/24 1008 BP: 155/95 Pulse: 100 Resp: 17 Temp: 98.4 ??F (36.9 ??C) SpO2: 97% Gen- afebrile, no acute distress Eyes- normal conjunctiva Ent- trach in place without drainage, no neck swelling Cv- heart without murmur, normal pulses bilateral radial Resp- lung clear to auscultation Abd- G-tube in place without drainage, soft, nontender, normal bowel sounds Ms- no ext swelling Neuro- alert, normal mentation MDM: DDx: Abdominal pain-gastritis versus UTI versus chest wall abnormality versus other Plan: Labs and CT DATA REVIEW: Labs Reviewed COMPREHENSIVE METABOLIC PANEL - Abnormal; Notable for the following components: Result Value Creatinine 0.52 (*) Chloride 109 (*) BUN/Creatinine Ratio 35 (*) Osmolality Calculated 297 (*) Albumin/Globulin Ratio 0.9 (*) All other components within normal limits PHOSPHORUS BLOOD - Normal MAGNESIUM BLOOD - Normal CBC W AUTO DIFFERENTIAL Lab interpret: Benign by my review CT Chest Abdomen Pelvis W Cont (Results Pending) Rad interpret: Pending ED COURSE Patient was sent for abdominal x-ray, unclear reason for getting the x-ray. Labs and CT ordered 2:00 p.m.-care to Dr. Johnson pending CT scan pt counseled on findings and plan Clinical Impression: Acute abdominal pain Disposition: Pending Caio Elder MD 05/15/2024 3:01 PM ING MACHINE OPERATOR * Elmo Johnson MD - 05/15/2024 2:24 PM CST ASSUMED CARE NOTE Patient signed out to me by Dr. Elder at 2:00 PM. Briefly, Bi Tabor is a 64 year old male is being evaluated for abdominal pain. Patient has history of CVA with residual weakness and has a G-tube and trach at baseline. At this time the patient'scondition is stable. Pending CT and reassessment. Vitals: 05/15/24 1930 05/15/24199905/15/24 2300 05/15/24 2322 BP: 142/88 153/90 163/93 Pulse: 86 92 98 100 Resp: 12 18 14 13 Temp: SpO2: 98% 100% 100% 100% ED Course: Time critical events not noted above: (These events are recorded by multiple users, and are therefore subject to redundancy and/or error) ED Course as of 05/15/246 TueMay 15, 2024 1403 Labs without significant abnormalities. [CM] [address] chest abdomen pelvis with contrast. Patient signed out to the oncoming ED team [CM] 2220 Patient reassessed, reports abdominal pain is resolved. Requests refill of antiepileptic medications [AG] 222 Will dc [AG] ED Course User Index [AG] Elmo Johnson MD [CM] Luis Steiner DO Clinical Impressions as of 05/15/24 2336 Abdominal pain, generalized Diverticulosis Prostate enlargement Nephrolithiasis Clinical Impression: 1. Abdominal pain, generalized 2. Diverticulosis 3. Prostate enlargement 4. Nephrolithiasis Disposition: Discharged. Elmo Johnson M.D. Emergency Medicine [facility] ING MACHINE OPERATOR * Luis Steiner DO - 05/15/2024 11:[address] [facility] EMERGENCY DEPARTMENT RESIDENT ENCOUNTER HISTORICAL INFORMATION Primary Care Doctor: Dany Monsivais MD Patient information was obtained primarily from the Patient History/Exam limitations: due to condition Interpretor services: N/A CHIEF COMPLAINT Pain Abdominal (BIBEMS C/O abd pain that stared x2 days. ) HPI Bi Tabor is a 64 year old male. Patient with past Hx of CVA w/ left sided deficits, TBI, trach pt, PVD, and G tube presents today after having abd pain for a week and a KUB obtained outpatient KUB that shows prominent edema/inflammation/contusion in the subcutaneous fat at the lateral wall of the right lower abdomen/pelvis that was not there on a KUB on 04/19/24. He does report having a headache for last couple of days. He denies any fevers, chills, chest pain, SOB, diarrhea, dysuria, nausea, or vomiting. 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 Left; LEFT BKA POSS AKA SINUS SURGERY N/A 11/26/2022 N/A; Bilateral Nasal Endoscopy, Right polypectomy, Right Maxillary Antrostomy, Rihjy Anterior Ethmoidectomy CURRENT MEDICATIONS Current Outpatient Medications: acetaminophen (Tylenol) 325 MG tablet, 2 (two) tablets by Enteral Tube route every 6 hours as needed Maximum allowable Acetaminophen amount = 4 Grams (4000 mg) / 24 hours., Disp: , Rfl: albuterol-ipratropium (Duo-Neb) 0.5-2.5 (3) MG/3ML nebulizer solution, Inhale 3 mL by mouth every 6hours as needed for Shortness of Breath or Wheezing, Disp: , Rfl: apixaban (Eliquis) 5 MG tablet, Take 1 (one) tablet by mouth 2 times daily Per G-tube, Disp: , Rfl: artificial tears ophthalmic ointment, Instill into both eyes every 8 hours, Disp: , Rfl: aspirin (Aspirin) 81 MG chew tablet, 1 (one) tablet by Enteral Tube route once daily, Disp: , Rfl: atorvastatin (Lipitor) 40 MG tablet, 1 (one) tablet by Enteral Tube route at bedtime, Disp: 30 tablet, Rfl: 0 bisacodyl (Dulcolax) 10 MG suppository, Insert 1 (one) suppository into the rectum once daily as needed for Constipation, Disp: , Rfl: Calcium Carbonate Antacid (calcium carbonate, 500 mg elemental Ca/5 mL,) 1250 MG/5ML suspension, 5 mL by Enteral Tube route every 6 hours as needed, Disp: , Rfl: cloBAZam (Onfi) 10 MG tablet, Take 1 (one) tablet by mouth 2 times daily, Disp: 60 tablet, Rfl: 5 famotidine (Pepcid) 20 MG tablet, 1 (one) tablet by Enteral Tube route 2 times daily, Disp: 60 tablet, Rfl: 0 folic acid (Folvite) 1 MG tablet, 1 (one) tablet by Enteral Tube route once daily, Disp: , Rfl: guaiFENesin (Robitussin) 100 MG/5ML solution, 15 mL by Enteral Tube route Every 6 Hours (03,09,15,21), Disp: 200 mL, Rfl: 0 lacosamide (Vimpat) 200 MG tablet, 1 (one) tablet by Per G Tube route 2 times daily for 90 days, Disp: , Rfl: levETIRAcetam (Keppra) 100 MG/ML oral solution, 20 mL by Enteral Tube route 2 times daily for 90 days, Disp: , Rfl: metoprolol tartrate IR (Lopressor) 25 MG tablet, 1 (one) tablet by Enteral Tube route 2 times daily, Disp: , Rfl: pantoprazole (Protonix) 40 MG packet, Take 1 (one) packet by mouth once daily, Disp: , Rfl: 0 polyethylene glycol 3350 (Miralax) 17 g packet, 17 (seventeen) g by Enteral Tube route 2 times daily, Disp: 15 packet, Rfl: 0 senna (Senokot) 8.6 MG tablet, 1 (one) tablet by Enteral Tube route once daily, Disp: 30 tablet, Rfl: 0 thiamine (Vitamin B-1) 100 MG tablet, 1 (one) tablet by Enteral Tube route once daily, Disp: , Rfl: valproic acid (Depakene) 250 MG/5ML solution, 25 mL by Per G Tube route every 6 hours, Disp: , Rfl: ALLERGIES Allergies Allergen Reactions Clonazepam Psychiatric hallucinations FAMILY HISTORY No family history on file. SOCIAL HISTORY Social History Socioeconomic History Marital status: Single Tobacco Use Smoking status: Former Current packs/day: 1.00 Average packs/day: 1 pack/day for 15.0 years (15.0 ttl pk-yrs) Types: Cigarettes Smokeless tobacco: Never Vaping Use Vaping status: Never Used Substance and Sexual Activity Alcohol use: No Comment: last drink 2015 Drug use: No Comment: occasional Sexual activity: Not Currently PHYSICAL EXAM BP 155/95 (BP Location: Left arm, Patient Position: Sitting) Pulse 100 Temp 98.4 ??F (36.9 ??C)(Oral) Resp 17 SpO2 97% Physical Exam Constitutional: General: He is not in acute distress. Appearance: He is well-developed. He is not toxic-appearing. HENT: Head: Normocephalic and atraumatic. Mouth/Throat: Mouth: Mucous membranes are moist. Pharynx: Oropharynx is clear. Eyes: Extraocular Movements: Extraocular movements intact. Pupils: Pupils are equal, round, and reactive to light. Cardiovascular: Rate and Rhythm: Regular rhythm. Tachycardia present. Heart sounds: No murmur heard. Pulmonary: Effort: Pulmonary effort is normal. No respiratory distress. Breath sounds: Normal breath sounds. No stridor. No wheezing. Abdominal: General: Abdomen is flat. Bowel sounds are normal. Palpations: Abdomen is soft. There is no shifting dullness. Tenderness: There is abdominal tenderness in the epigastric area, periumbilical area and suprapubicarea. Comments: G-tube in place with clean dressings around the opening. Musculoskeletal: Comments: AK on the left. Neurological: Mental Status: He is alert. Cranial Nerves: No cranial nerve deficit. Psychiatric: Mood and Affect: Mood normal. PULSE OXIMETRY INTERPRETATION Saturation: 97% Oxygen Delivery: On Room Air Interpretation: No hypoxia at this time Ddx/problem: Appendicitis versus diverticulitis versus abscess versus hernia versus cholecystitis versus constipation versus IBS versus IBD versus AAA versus other Plan: Labs and imaging PROCEDURES: Procedures ED COURSE & MEDICAL DECISION MAKING Pertinent Labs & Imaging studies reviewed. (See chart for details) Labs Reviewed COMPREHENSIVE METABOLIC PANEL - Abnormal; Notable for the following components: Result Value Creatinine 0.52 (*) Chloride 109 (*) BUN/Creatinine Ratio 35 (*) Osmolality Calculated 297 (*) Albumin/Globulin Ratio 0.9 (*) All other components within normal limits PHOSPHORUS BLOOD - Normal MAGNESIUM BLOOD - Normal CBC W AUTO DIFFERENTIAL CT Chest Abdomen Pelvis W Cont (Results Pending) CONSULTS: No PROGRESS NOTES ED Course as of 05/15/24 1411 TueMay 15, 2024 1403 Labs without significant abnormalities. [CM] [address] chest abdomen pelvis with contrast. Patient signed out to the oncoming ED team [CM] ED Course User Index [CM] Luis Steiner DO Clinical Impressions as of 05/15/24 1411 Abdominal pain, generalized FINAL IMPRESSION 1. Abdominal pain, generalized DISPOSITION: Signed out to Dr. Johnson pending CT chest abdomen pelvis with contrast Disposition pending Luis Steiner DO Emergency Medicine PGY-1 I use M-modal dictation Electronically signed: Dr. Steiner Date: 05/15/24 Time: 11:20 AM ING MACHINE OPERATOR * Alin Brownlee RN - 05/15/2024 10:22 AM CST Past Medical History: Diagnosis Date Cerebrovascular disease HTN (hypertension) Seizure (HCC) ING MACHINE OPERATOR * Dennis Deshpande DO - 05/15/2024 10:14 AM CST [facility] EMERGENCY DEPARTMENT Bi Tabor is a 64 year old male PMHx TBI, trach, G tube being evaluated for a complaint of abdominal pain. Pertinent Exam: Trach in place. G tube in place. Abdomen soft and non-tender. Pt awake, alert, pleasant and cooperative. Plan for labwork and CT imaging. ED COURSE & MEDICAL DECISION MAKING Pertinent Labs & Imaging studies reviewed. (See chart for details) PROGRESS NOTES ED Course as of 05/15/24 1438 TueMay 15, 2024 1403 Labs without significant abnormalities. [CM] [address] chest abdomen pelvis with contrast. [facility] [CM] ED Course User Index [CM] Luis Steiner DO Clinical Impressions as of 05/15/24 1438 Abdominal pain, generalized Pt presentation, course, and plan discussed with attending emergency medicine physician Dr. Elder. Impression: 1. Abdominal pain, generalized Disposition: Pending CT imaging. Pt presentation and course discussed with incoming team (Dr. Johnson) at transition of care. ING MACHINE OPERATOR documented in this encounter Plan of Treatment Upcoming Encounters Date Type Department Care Team (Late st Contact Info) Description 12/05/2024 1:00 PM CDT Office Visit [facility] - Neurology [address] [facility] [place] [address] Sean Raymundo, [facility] [place] [phone] documented as of this encounter Procedures Procedure Name Priority Date/Time Associated Diagnosis Comments URINALYSIS REFLEX MICROSCOPIC REFLEX CULTURE STAT 05/15/2024 6:12 PM BURRING MACHINE OPERATOR CT CHEST ABDOMEN PELVIS W CONT STAT 05/15/2024 2:44 PM BURRING MACHINE OPERATOR Abdominal pain, generalized CBC W AUTO DIFFERENTIAL STAT 05/15/2024 12:40 PM BURRING MACHINE OPERATOR COMPREHENSIVE METABOLIC PANEL STAT 05/15/2024 12:40 PM BURRING MACHINE OPERATOR PHOSPHORUS BLOOD STAT 05/15/2024 12:4 0 PM BURRING MACHINE OPERATOR MAGNESIUM BLOOD STAT 05/15/2024 12:40 PM BURRING MACHINE OPERATOR documented in this encounter Results * (ABNORMAL) URINALYSIS REFLEX MICROSCOPIC REFLEX CULTURE (05/15/2024 6:12 PM BURRING MACHINE OPERATOR) Color UA Yellow Straw, Yellow 05/15/2024 6:28 PM BURRING MACHINE OPERATOR [facility] Clarity UA Clear Clear 05/15/2024 6:28 PM BURRING MACHINE OPERATOR [facility] Specific [place] UA 1.059(H) 1.005 - 1.030 05/15/2024 6:28 PM BURRING MACHINE OPERATOR [facility] pH UA 7.0 5.0 - 8.0 pH 05/15/2024 6:28 PM BURRING MACHINE OPERATOR [facility] Protein UA Negative Negative 05/15/2024 6:[address] [facility] Glucose UA Negative Negative 05/15/2024 6:[address] [facility] Ketone UA Negative Negative 05/15/2024 6:[address] [facility] Bilirubin UA Negative Negative 05/15/2024 6:[address] [facility] Blood UA Negative Negative 05/15/2024 6:[address] [facility] Nitrite UA Negative Negative 05/15/2024 6:[address] [facility] Leukocyte Esterase Negative Negative 05/15/2024 6:[address] [facility] Urobilinogen UA Negative Negative mg/dL 05/15/2024 6:[address] [facility] Comment UA Microscopic not indicated. 05/15/2024 6:[address] [facility] Urine URINE SPECIMEN OBTAINED BY CLEAN CATCH PROCEDURE / Unknown Collection / Unknown 05/15/2024 6:12 PM BURRING MACHINE OPERATOR 05/15/2024 6:15 PM BURRING MACHINE OPERATOR Narrative [facility] - 05/15/2024 6:28 PM BURRING MACHINE OPERATOR Elmo Johnson MD LAB - URINALYSIS ORD ERABLES [facility] [address] [place] [id number], [place] [phone] * CT Chest Abdomen Pelvis W Cont (05/15/2024 2:44 PM BURRING MACHINE OPERATOR) Anatomical Region Laterality Modality Chest, Abdomen, Pelvis Computed Tomography 05/15/2024 3:06 PM BURRING MACHINE OPERATOR Impressions 05/15/2024 4:01 PM BURRING MACHINE OPERATOR Impression 1. Debris noted in the right mainstem bronchus and the bilateral lower lobe peribronchial wall thickening suggestive of aspiration. 2. Centrilobular emphysematous disease of the lungs. 3. Bilateral nonobstructive nephrolithiasis. 4. Colonic diverticulosis without evidence of diverticulitis. 5. Prostatomegaly. Recommend correlation with PSA. Report dictated by Flavio Stover MD(pharmacy resident). I, John Graham MD have personally reviewed and interpreted this examination/study. > Interpreting Provider: John Graham MD on 05/15/2024 4:01 PM Narrative 05/15/2024 4:01 PM BURRING MACHINE OPERATOR PROCEDURE: ??CT CHEST ABDOMEN PELVIS W CONT, DATE/TIME OF EXAM: ??05/15/2024 2:44 PM, LOCATION ??[facility] INDICATION: R10.84: Abdominal pain, generalized ADDITIONAL [...] CONT, DATE/TIME OF EXAM:05/15/2024 2:44 PM, LOCATION [facility] INDICATION: R10.84: Abdominal pain, generalized ADDITIONAL [...] with PSA. Report dictated by Flavio Stover MD(pharmacy resident). I, John Graham MD have personally reviewed and interpreted this examination/study. > Interpreting Provider: John Graham MD on 05/15/2024 4:01 PM Caio Elder MD CT ORDERABLES * CBC W AUTO DIFFERENTIAL (05/15/2024 12:40 PM BURRING MACHINE OPERATOR) WBC 7.9 4.0 - 10.7 x10E9/L 05/15/2024 1:[address] [facility] RBC Count 4.45 4.30 - 5.80 x10E12/L 05/15/2024 1:[address] [facility] Hemoglobin 14.4 13.3 - 17.5 g/dL 05/15/2024 1:[address] [facility] Hematocrit 42.8 38.7 - 51.1 % 05/15/2024 1:[address] [facility] MCV 96.2 80.0 - 98.0 fL 05/15/2024 1:[address] [facility] MCH 32.4 26.7 - 33.6 pg 05/15/2024 1:[address] [facility] MCHC 33.6 31.7 - 36.3 g/dL 05/15/2024 1:[address] [facility] RDW-CV 13.8 11.3 - 14.8 % 05/15/2024 1:[address] [facility] Platelet Count 163 150 - 420 x10E9/L 05/15/2024 1:[address] [facility] MPV 05/15/2024 1:[address] [facility] Comment:Unable to report Neutrophil % 42.5 41.0 - 74.0 % 05/15/2024 1:[address] [facility] Lymphocyte % 40.6 17.0 - 47.0 % 05/15/2024 1:[address] [facility] Monocyte % 9.4 3.0 - 11.0 % 05/15/2024 1:[address] [facility] Eosinophil % 6.7 0.0 - 7.0 % 05/15/2024 1:[address] [facility] Basophil % 0.5 0.0 - 1.6 % 05/15/2024 1:[address] [facility] Immature Granulocytes % 0.3 0.0 - 1.0 % 05/15/2024 1:[address] [facility] Neutrophil Absolute 3.38 1.60 - 7.50 x10E9/L 05/15/2024 1:[address] [facility] Lymphocyte Absolute 3.22 1.00 - 4.40 x10E9/L 05/15/2024 1:[address] [facility] Monocyte Absolute 0.75 0.15 - 1.00 x10E9/L 05/15/2024 1:[address] [facility] Eosinophil Absolute 0.53 0.00 - 0.60 x10E9/L 05/15/2024 1:[address] [facility] Basophil Absolute 0.04 0.00 - 0.13 x10E9/L 05/15/2024 1:[address] [facility] Blood BLOOD SPECIMEN / Unknown Venipuncture / Unknown 05/15/2024 12:40 PM BURRING MACHINE OPERATOR 05/15/2024 1:01 PM BURRING MACHINE OPERATOR Caio Elder MD LAB - HEMATOLOGY ORD ERABLES [facility] [address] [place] [address], [place] [phone] * (ABNORMAL) COMPREHENSIVE METABOLIC PANEL (05/15/2024 12:40 PM [facility]) BUN 18 7 - 26 mg/dL 05/15/2024 1:[address] [facility] Creatinine 0.52(L) 0.71 - 1.16 mg/dL 05/15/2024 1:[address] [facility] Sodium 143 136 - 145 mmol/L 05/15/2024 1:[address] [facility] Potassium 4.3 3.5 - 4.5 mmol/L 05/15/2024 1:[address] [facility] Chloride 109(H) 98 - 107 mmol/L 05/15/2024 1:[address] [facility] CO2 27 22 - 29 mmol/L 05/15/2024 1:[address] [facility] Glucose 85 70 - 99 mg/dL 05/15/2024 1:[address] [facility] Calcium 9.8 8.4 - 10.2 mg/dL 05/15/2024 1:[address] [facility] Protein Total 7.8 6.0 - 8.3 g/dL 05/15/2024 1:[address] [facility] Albumin 3.7 3.4 - 5.0 g/dL 05/15/2024 1:[address] [facility] Bilirubin Total 0.3 0.2 - 1.2 mg/dL 05/15/2024 1:[address] [facility] Alkaline Phosphatase 97 40 - 150 U/L 05/15/2024 1:[address] [facility] ALT 21 5 - 55 U/L 05/15/2024 1:[address] [facility] AST 25 5 - 34 U/L 05/15/2024 1:[address] [facility] Anion Gap 7 6 - 16 05/15/2024 1:[address] [facility] BUN/Creatinine Ratio 35(H) 7 - 23 05/15/2024 1:[address] [facility] Osmolality Calculated 297(H) 275 - 295 mOsm/kg 05/15/2024 1:[address] [facility] Albumin/Globulin Ratio 0.9(L) 1.1 - 2.3 05/15/2024 1:33 PM BURRING MACHINE OPERATOR [facility] eGFR by CKD-EPI >90 >=90 mL/min/1.7 3 m2 05/15/2024 1:33 PM BURRING MACHINE OPERATOR [facility] Blood BLOOD SPECIMEN / Unknown Venipuncture / Unknown 05/15/2024 12:40 PM BURRING MACHINE OPERATOR 05/15/2024 1:01 PM BURRING MACHINE OPERATOR Caio Elder MD LAB - CHEMISTRY MARSHAL MEDEROS [facility] [address] [place] [id number], [place] [phone] * MAGNESIUM BLOOD (05/15/2024 12:40 PM BURRING MACHINE OPERATOR) Magnesium 2.2 1.6 - 2.6 mg/dL 05/15/2024 1:33 PM BURRING MACHINE OPERATOR [facility] Blood BLOOD SPECIMEN / Unknown Venipuncture / Unknown 05/15/2024 12:40 PM BURRING MACHINE OPERATOR 05/15/2024 1:01 PM BURRING MACHINE OPERATOR Caio Elder MD LAB - CHEMISTRY MARSHAL MEDEROS Performing Organization Address City/[facility]/ZIP Co de Phone Number [address] [address], [place] [phone] * PHOSPHORUS BLOOD (05/15/2024 12:40 PM BURRING MACHINE OPERATOR) Phosphorus 3.6 2.8 - 5.1 mg/dL 05/15/2024 1:33 PM BURRING MACHINE OPERATOR [facility] Blood BLOOD SPECIMEN / Unknown Venipuncture / Unknown 05/15/2024 12:40 PM BURRING MACHINE OPERATOR 05/15/2024 1:01 PM BURRING MACHINE OPERATOR Caio Elder MD LAB - CHEMISTRY MARSHAL MEDEROS Performing Organization Address City/[facility]/ZIP Co de Phone Number [address] [address], [place] [phone] documented in this encounter Visit Diagnoses Diagnosis Abdominal pain, generalized- Primary Diverticulosis Diverticulosis of colon (without mention of hemorrhage) Prostate enlargement Hypertrophy of prostate without urinary obstruction and other lower urinary tract symptoms (LUTS) Nephrolithiasis Calculus of kidney documented in this encounter Administered Medications Inactive Administered Medications - up to 3 most recent administrations Medication Order MAR Action Action Date Dose Rate Site famotidine (Pepcid) injection 20 mg 20 mg, Intravenous, Once, 1 dose, On Tue05/15/24 at 1915, Dilute with 0.9% NaCl, D5W solution, or SWI to a volume of 5 to 10 mL and administer over at least 2 minutes. $ Given 05/15/2024 7:34 PM BURRING MACHINE OPERATOR 20 mg iopamidol (Isovue 370) 76 % contrast Intravenous, CONTRAST ONCE, Starting on Tue05/15/24 at 1440, Until Tue05/16/24 at 0059 $ Given - Contrast 05/15/2024 2:41 PM BURRING MACHINE OPERATOR 100 mL ketorolac (Toradol) injection 15 mg 15 mg, Intravenous, ONCE, 1 dose, On Tue05/15/24 at 1930, Patient preference for lesser PRN pain meds [...] patient cannot tolerate oral intake $ Given 05/15/2024 7:34 PM BURRING MACHINE OPERATOR 15 mg documented in this encounter Active and Recently Administered Medications Times are shown in BURRING MACHINE OPERATOR. Scheduled Medication Order 05/13/2024 05/14/2024 05/15/2024 famotidine (Pepcid) injection 20 mg (COMPLETED) 20 mg, Intravenous, Once, 1 dose, On Tue05/15/24 at 1915, Dilute with 0.9% NaCl, D5W solution, or SWI to a volume of 5 to 10 mL and administer over at least 2 minutes. 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
--- OUTSIDE RECORDS SUMMARY | 2024-06-08 05:29 | XMS_ITS | Encounter Summary ---
Author Organization [facility] Health Address [address] [facility] [place] [address] Care Team Providers Care Registry Nurse Name Role Phone Elizabeth Sullivan RN Unavailable [phone] Joyce Luevano ELECTRICAL SUBCONTRACTOR-AUTOMATIC DRY STARCH OPERATOR Primary Care Provider [phone] Encounter Details Date Type Department Care Team (Latest Contact Info) Description 09/06/2023 Travel Social History Tobacco Use Types Packs/Day [...] heating? 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
--- OUTSIDE RECORDS SUMMARY | 2024-06-08 05:29 | XMS_ITS | Encounter Summary ---
Author Organization [facility] Health Address [address] [facility] [place] [address] Care Team Providers Care Men'S Golf Coach Name Role Phone Elizabeth Sullivan RN Unavailable [phone] Dany Monsivais MD Primary Care Provider Encounter Details Date Type Department Care Team (Latest Contact Info) Description 02/17/2024 Travel Social History Tobacco Use Types Packs/Day [...] Not hard at all 06/19/2023 [facility] [place] of Occupat ional Health - Occupational Stress [...] Office Visit [facility] - Neurology [address] [place] [address], Critical [place] [phone] Sean Raymundo, DO [address] [place] [address] [place] [address] documented as of this encounter Visit Diagnoses Not on filedocumented in this encounter Additional Health Concerns Infection Onset Date Last Indicated Resolved Time 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
--- OUTSIDE RECORDS SUMMARY | 2024-06-08 05:30 | XMS_ITS | Encounter Summary ---
Author Organization [facility] Health Address [address] [facility] [place] [address] Care Team Providers Care Heat Sealing Machine Operator Name Role Phone Elizabeth Sullivan RN Unavailable [phone] Joyce Luevano WINDLACE MACHINE OPERATOR-REST ROOM MATRON Primary Care Provider [phone] Reason for Visit * Reason Onset Date Comments Order 05/18/2023 Encounter Details Date Type Department Care Team (Late st Contact Info) Description 05/18/2023 Telephone [facility] - Neurology [facility] [place] [address] Yana mR APRN-REST ROOM MATRON [address] [place] [address] Order Social History Tobacco Use Types Packs/Day Years Used Date Smoking Tobacco: Former Cigarettes 1 15 Smokeless Tobacco: Never Alcohol Use Standard Drinks/Week Comments No 0 (1 standard drink = 0.6 oz pur e alcohol) last drink 2015 AUDIT-C Answer Date Recorded Q1: How often do you have a drink containing alcohol? Never 02/23/2023 Q2: How many drinks containi ng alcohol do you have on a typical day when you are drinking? Patient does not drink Q3: How often do you have si x or more drinks on one occasion? Never 02/23/2023 Overall Financial Resource Strain (CARDIA) Answe r Date Recorded How hard is it for you to pa y for the very basics like food, housing, medical care, and heating? Not hard at all 11/28/2022 [facility] [place] of Occupat ional Health - Occupational Stress Questionnaire Answer Date Recorded Do you feel stress - tense, restless, nervous, or anxious, or unable to sleep at night because your mind is troubled all the time - these days? Not at all 11/28/2022 Hunger Vital Sign Answer Date Recorded Within the past 12 months, y ou worried that your food would run out before you got the money to buy more. Never true 11/29/19 23 Within the past 12 months, t he food you bought just didn't last and you didn't have money to get more. Never true 11/28/2022 PRAPARE - Transportation Answer Date Re corded In the past 12 months, has l ack of transportation kept you from medical appointments or from getting medications? No 06/2022 In the past 12 months, has l ack of transportation kept you from meetings, work, or from getting things needed for daily living? No 11/28/2022 Housing Stability Vital Sign Answer Vinay e Recorded In the last 12 months, was t here a time when you were not able to pay the mortgage or rent on time? No 11/28/2022 In the last 12 months, how many places have you lived? 1 11/28/2022 In the last 12 months, was t here a time when you did not have a steady place to sleep or slept in a mcc (including now)? No 11/28/2022 Sex and Gender Information Value Date Recorded Sex Assigned at Not on file Gender Identity Not on file Sexual Orientation Not on file documented as of this encounter Functional Status Functional Status Response Date of Assess ment Is person deaf or have serious hearing difficult y? Yes 01/01/2023 Is person blind or have serious difficulty seein g? Yes 01/01/2023 Does person have serious dif ficulty walking/climbing stairs? Yes 01/01/2023 Does person have difficulty dressing/bathing? Ye s 01/01/2023 Does person have difficulty doing errands alone? Yes 01/01/2023 Cognitive Status Response Date of Assessm ent Does person have difficulty concentrating/remembering/making decisions? Yes 01/01/2023 documented as of this encounter Miscellaneous Notes * Telephone Encounter - Michaela Bass RN - 05/20/2023 8:33 AM CST Spoke with ANTHONY William RN and gave her the new On[facility] orders. Faxed script to [phone] as well. Will make change today. MANAGER * Telephone Encounter - Michaela Bass RN - 05/18/2023 8:33 AM CST Images from the original note were not included. Yana Rm APRN-CNP You 36 minutes ago (7:55 AM) AB Scott William, Updated patient's clobazam to be 10mg AM and 15mg PM, sent new prescription. Could you [facility] so they have new instructions. Thank you! Had to [facility] for a nurse to call me back regarding dose change for clobazam. Will try again at a later time. MANAGER documented in this encounter Plan of Treatment Upcoming Encounters Date Type Department Care Team (Late st Contact Info) Description 12/05/2024 1:00 PM CDT Office Visit [facility] - Neurology [address] [place] [address], [facility] [place] [address] Sean Raymundo, [address] [place] [address] [place] [phone] documented as of this encounter Visit Diagnoses Not on filedocumented in this encounter Additional Health Concerns Infection Onset Date Last Indicated Resolved Time MRSA Comment:06/13/23 Nasal MRSA doesn't require iso, ES 06/29/2022 06/11/2023 06/13/2023 10:14 AM RAMP MANAGER 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
--- OUTSIDE RECORDS SUMMARY | 2024-06-08 05:30 | XMS_ITS | Encounter Summary ---
Author Organization [facility] Health Address [address] [address] Care Team Providers Care Digital Project Coordinator Name Role Phone Elizabeth Sullvian RN Unavailable [phone] Joyce Luevano CHIEF CLERK-FRUIT BAR MAKER Primary Care Provider [phone] Reason for Visit * Reason Comments Lethargy Pt [facility] for [facility]/o lethargy for the past 12 hours. Pt has hx respiratory failure and has a chronic tracheostomy with his baseline being at 10L of O2 per trach collar. EMS states the patient is nonverbal at baseline but upon arrival he whispered his name. VSS * Auth/Cert (Routine) Specialty Diagnoses / Procedures Referred By Anabella t Referred To Contact Referral ID Status Reason Start Date Expiration Date Visits Re quested Visits Authorized [id number] 1 1 Encounter Details Date Type Department Care Team (Latest Contact Info) Description 06/09/2023 11:36 AM PROFESSOR OF SPORT MANAGEMENT - 06/28/2023 6:25 PM PROFESSOR OF SPORT MANAGEMENT Hospital Encounter SL 5N ACUTE [address] [place] [id number] Ryanne Hanson MD [address] [place] [address] Jolynn Ann MD [address] [place] [id number] Vicky Silva MD [address] [place] [address] Gaurav Nogueira MD [address] [facility] [address] [place] [address] Norma Briones MD [address] DIV [place] [address] Olga Peterson MD [address] [place] [address] Leatha Vinson MD [address] [place] [address] Neurology Discharge Disposition: Long Term Facility Social History Tobacco Use Types Packs/Day [...] and heating? Not hard at all 06/19/2023 [place] [facility] - Occupational Stress [...] Sign Reading Time Taken Comments Blood Pressure 113/73 06/28/2023 4:11 PM PROFESSOR OF SPORT MANAGEMENT Pulse 86 06/28/2023 4:11 PM PROFESSOR OF SPORT MANAGEMENT Temperature 36.7 ??C (98 ??F) 06/28/2023 4:11 PM PROFESSOR OF SPORT MANAGEMENT Respiratory Rate 20 06/28/2023 3:31 PM PROFESSOR OF SPORT MANAGEMENT Oxygen Saturation 94% 06/28/2023 4:11 PM PROFESSOR OF SPORT MANAGEMENT Inhaled Oxygen Concentration 30% 06/28/2023 3 :31 PM PROFESSOR OF SPORT MANAGEMENT Weight 80.3 kg (177 lb) 06/25/2023 4:00 AM PROFESSOR OF SPORT MANAGEMENT Height 177.8 cm (5' 10 ) 06/18/2023 11:49 PM PROFESSOR OF SPORT MANAGEMENT Body Mass Index 25.4 06/18/2023 11:49 PM PROFESSOR OF SPORT MANAGEMENT documented in this encounter Functional Status Functional [...] as of this encounter Discharge Summaries * Trista Hays DO - 06/28/2023 11:45 AM CST Physician Discharge Summary Patient ID: Bi Tabor [id number] 63 year old 1960 Admission Date: 06/09/2023 Discharge Date: 06/28/2023 Admitting Physician: Neha Palomino MD Discharge Physician: Leatha Vinson MD Indication for Admission: Acute encephalopathy Sepsis Pneumonia Urinary tract infection History of epilepsy Hypertension Chronic Respiratory failure with hypoxia Pleural effusion Lactic acidosis PAD Hx of CVS Vascular dementia Discharge Diagnoses: Seizure Acute encephalopathy Sepsis Pneumonia Urinary tract infection History of epilepsy Hypertension Chronic Respiratory failure with hypoxia Pleural effusion Lactic acidosis PAD Hx of CVS Vascular dementia Discharged Condition: stable Hospital Course: Bi Tabor??is a 63 year old??male??w/ PMH of eliplepsy (L tempero-occipital lobes), CHRF s/p trach and PEG, HTN, HLD, PAD s/p L AKA, Hx of CVA's and vascular dementia who was admitted for acute encephalopathy. At baseline, patient is A&Ox3, though dependent on all ADLs. ?? Patient found to have PNA as well as Pseudomonas UTI. Patient completed course w/ ceftolozane/tazobactam and vancomycin. Patient then found to have seizure on 06/20, neurology consulted. Patient loaded w/ vimpat 600mg and started on cEEG. Had additional seizure after vimpat load. Patient continued to have clinical and electrographic seizures, therefore loaded w/ fosphenytoin and home clobazam increased to 20 BID.??S/p valproic acid load 06/24 w/ increase in maintenance dose to 1000mg QID. He thencontinued to have electrographic seizures, though??duration??seems??to be decreasing. No clinical??seizures. Mental status returning to baseline. Discussed with attending and patient was deemed approp riate for discharge. Discharge AED regimen: - Vimpat 200 mg BID - Keppra 2000 mg BID - Clobazam 20 mg BID - Valproic acid 1000 mg every 6 hours Discharge Exam: Vitals: Temperature 100 HR 112 BP 121/77 Respirations 20 Oxygen saturation 25% on 8 L humidified trach collar General: alert, no acute distress Eyes: extraocular muscles intact Mouth/Throat: moist mucous membranes Neck: good range of motion, trach in place CV: regular rate and rhythm, no murmurs appreciated Resp: clear to auscultation bilaterally, no wheezes or crackles heard Abd: soft, nontender, nondistended, PEG in place Extremities: no lower extremity edema, no cyanosis Skin: no rashes or lesions noted Neuro: moving all extremities well spontaneously Consults: IP CONSULT TO NUTRITIONAL SERV IP CONSULT TO RESPIRATORY IP CONSULT TO NUTRITIONAL SERV IP CONSULT TO INFECTIOUS DISEASES IP CONSULT TO GREASE BUFFER IP CONSULT TO NUTRITIONAL SERV Significant Diagnostic Studies: Labs this admission: Results for orders placed or performed during the hospital encounter of 06/09/23 (from the past 48 hour(s)) CBC W AUTO DIFFERENTIAL Result Value Ref Range WBC 7.8 4.0 - 10.7 x10E9/L RBC Count 3.88 (L) 4.30 - 5.80 x10E12/L Hemoglobin 12.5 (L) 13.3 - 17.5 g/dL Hematocrit 38.5 (L) 38.7 - 51.1 % MCV 99.2 (H) 80.0 - 98.0 fL MCH 32.2 26.7 - 33.6 pg MCHC 32.5 31.7 - 36.3 g/dL RDW-CV 15.7 (H) 11.3 - 14.8 % Platelet Count 230 150 - 420 x10E9/L MPV 13.0 (H) 7.8 - 11.4 fL Neutrophil % 45.9 41.0 - 74.0 % Lymphocyte % 40.2 17.0 - 47.0 % Monocyte % 9.3 3.0 - 11.0 % Eosinophil % 3.9 0.0 - 7.0 % Basophil % 0.3 0.0 - 1.6 % Immature Granulocytes % 0.4 0.0 - 1.0 % Neutrophil Absolute 3.58 1.60 - 7.50 x10E9/L Lymphocyte Absolute 3.12 1.00 - 4.40 x10E9/L Monocyte Absolute 0.72 0.15 - 1.00 x10E9/L Eosinophil Absolute 0.30 0.00 - 0.60 x10E9/L Basophil Absolute 0.02 0.00 - 0.13 x10E9/L COMPREHENSIVE METABOLIC PANEL Result Value Ref Range BUN 23 7 - 26 mg/dL Creatinine 0.55 (L) 0.71 - 1.16 mg/dL Sodium 137 136 - 145 mmol/L Potassium 4.5 3.5 - 4.5 mmol/L Chloride 105 98 - 107 mmol/L CO2 26 22 - 29 mmol/L Glucose 105 70 - 115 mg/dL Calcium 9.2 8.4 - 10.2 mg/dL Protein Total 7.1 6.0 - 8.3 g/dL Albumin 2.7 (L) 3.4 - 5.0 g/dL Bilirubin Total 0.2 0.2 - 1.2 mg/dL Alkaline Phosphatase 103 40 - 150 U/L ALT 21 5 - 55 U/L AST 21 5 - 34 U/L Anion Gap 6 6 - 16 BUN/Creatinine Ratio 42 (H) 7 - 23 Osmolality Calculated 288 275 - 295 mOsm/kg Albumin/Globulin Ratio 0.6 (L) 1.1 - 2.3 eGFR by CKD-EPI >90 >=90 mL/min/1.73 m2 MAGNESIUM BLOOD Result Value Ref Range Magnesium 2.0 1.6 - 2.6 mg/dL PHOSPHORUS BLOOD Result Value Ref Range Phosphorus 3.5 2.8 - 5.1 mg/dL CBC W AUTO DIFFERENTIAL Result Value Ref Range WBC 7.7 4.0 - 10.7 x10E9/L RBC Count 3.89 (L) 4.30 - 5.80 x10E12/L Hemoglobin 12.5 (L) 13.3 - 17.5 g/dL Hematocrit 37.6 (L) 38.7 - 51.1 % MCV 96.7 80.0 - 98.0 fL MCH 32.1 26.7 - 33.6 pg MCHC 33.2 31.7 - 36.3 g/dL RDW-CV 15.6 (H) 11.3 - 14.8 % Platelet Count 246 150 - 420 x10E9/L MPV 13.1 (H) 7.8 - 11.4 fL Neutrophil % 43.9 41.0 - 74.0 % Lymphocyte % 42.9 17.0 - 47.0 % Monocyte % 8.1 3.0 - 11.0 % Eosinophil % 4.4 0.0 - 7.0 % Basophil % 0.3 0.0 - 1.6 % Immature Granulocytes % 0.4 0.0 - 1.0 % Neutrophil Absolute 3.37 1.60 - 7.50 x10E9/L Lymphocyte Absolute 3.29 1.00 - 4.40 x10E9/L Monocyte Absolute 0.62 0.15 - 1.00 x10E9/L Eosinophil Absolute 0.34 0.00 - 0.60 x10E9/L Basophil Absolute 0.02 0.00 - 0.13 x10E9/L COMPREHENSIVE METABOLIC PANEL Result Value Ref Range BUN 17 7 - 26 mg/dL Creatinine 0.50 (L) 0.71 - 1.16 mg/dL Sodium 136 136 - 145 mmol/L Potassium 4.7 (H) 3.5 - 4.5 mmol/L Chloride 104 98 - 107 mmol/L CO2 26 22 - 29 mmol/L Glucose 102 70 - 115 mg/dL Calcium 9.2 8.4 - 10.2 mg/dL Protein Total 7.2 6.0 - 8.3 g/dL Albumin 2.8 (L) 3.4 - 5.0 g/dL Bilirubin Total 0.3 0.2 - 1.2 mg/dL Alkaline Phosphatase 108 40 - 150 U/L ALT 26 5 - 55 U/L AST 27 5 - 34 U/L Anion Gap 6 6 - 16 BUN/Creatinine Ratio 34 (H) 7 - 23 Osmolality Calculated 284 275 - 295 mOsm/kg Albumin/Globulin Ratio 0.6 (L) 1.1 - 2.3 eGFR by CKD-EPI >90 >=90 mL/min/1.73 m2 MAGNESIUM BLOOD Result Value Ref Range Magnesium 1.9 1.6 - 2.6 mg/dL PHOSPHORUS BLOOD Result Value Ref Range Phosphorus 2.8 2.8 - 5.1 mg/dL Disposition: longterm facility Activity: activity as tolerated Diet: Continuous Osmolite 1.2 calories 75 cc/hr Signed: Trista Hays DO 06/28/2023 11:45 AM ESSOR OF SPORT MANAGEMENT documented in this encounter Discharge Instructions * Discharge Instructions* Jennie Fernandes MD - 06/20/2023 5:55 AM PROFESSOR OF SPORT MANAGEMENT [facility] SUMMARY OF HOSPITALIZATION (06/09/2023 through 06/20/2023) Mr. Sharona Perdue were admitted to [facility] on 06/09/2023 for respiratory failure due to lunginfection. You received a long course of IV antibiotics. To Nursing facility: - Mr. Tabor requires extensive chest hygiene, especially frequent suctioning, he will also need deep suctioning. - Please keep bed head at 30 degree to avoid aspiration. - Patient is back to baseline when discharged from the hospital. On 06/20/2023, we felt that you were ready for discharge from the hospital. ----- PLEASE NOTE THE FOLLOWING: Medications: Please take only the medications as described in the table below: Current Discharge Medication List UNREVIEWED MEDICATIONS Instructions Authorizing Provider acetaminophen 325 MG tablet Commonly known as: Tylenol 2 (two) tablets by Enteral Tube route every 6 hours as needed Maximum allowable Acetaminophen amount = 4 Grams (4000 mg) / 24 hours. Felicitas Almanzar artificial tears ophthalmic ointment Instill into both eyes every 8 hours Ck Mccurdy MD aspirin 81 MG chew tablet Commonly known as: Aspirin 1 (one) tablet by Enteral Tube route once daily atorvastatin 40 MG tablet Commonly known as: Lipitor Quantity Dispensed: 30 tablet 1 (one) tablet by Enteral Tube route at bedtime Paige Breswter MD calcium carbonate (500 mg elemental Ca/5 mL) 1250 MG/5ML suspension 5 mL by Enteral Tube route every 6 hours as needed Paige Brewster MD cloBAZam 10 MG tablet Commonly known as: Onfi Quantity Dispensed: 225 tablet 1 (one) tablet by Enteral Tube route every morning AND 1.5 (one and one-half) tablets every evening. Yana Rm APRN-FRUIT BAR MAKER famotidine 20 MG tablet Commonly known as: Pepcid Quantity Dispensed: 60 tablet 1 (one) tablet by Enteral Tube route 2 times daily Paige Brewster MD folic acid 1 MG tablet Commonly known as: Folvite 1 (one) tablet by Enteral Tube route once daily Dante Nuno MD guaiFENesin 100 MG/5ML solution Commonly known as: Robitussin Quantity Dispensed: 200 mL 15 mL by Enteral Tube route Every 6 Hours (03,09,15,21) Paige Brewster MD levETIRAcetam 1000 MG tablet Commonly known as: Keppra Quantity Dispensed: 120 tablet 2 (two) tablets by Enteral Tube route 2 times daily Paige Brewster MD metoprolol tartrate IR 25 MG tablet Commonly known as: Lopressor 1 (one) tablet by Enteral Tube route 2 times daily Miller Gomes pantoprazole 40 MG packet Commonly known as: Protonix Take 1 (one) packet by mouth once daily Felicitas Yohan polyethylene glycol 3350 17 g packet Commonly known as: Miralax Quantity Dispensed: 15 packet 17 (seventeen) g by Enteral Tube route 2 times daily Paige Brewster MD sennosides 8.6 MG tablet Commonly known as: Senokot Quantity Dispensed: 30 tablet 1 (one) tablet by Enteral Tube route once daily Paige Brewster MD thiamine 100 MG tablet Commonly known as: Vitamin B-1 1 (one) tablet by Enteral Tube route once daily Dante Nuno MD valproic acid 250 MG/5ML solution Commonly known as: Depakene Quantity Dispensed: 200 mL 10 mL by Per G Tube route 4 times daily Paige Brewster MD 2. Follow up: Please make an appointment with your primary care physician for 1-2 weeks after discharge. 3. Lifestyle Modifications: - Please AVOID smoking cigarettes. Please talk to your Primary Care Physician if you need help quitting smoking. - Please cut down on alcohol use. Please talk with your Primary Care Physician if you need help cutting down or quitting drinking alcohol. - Please maintain a healthy diet including fresh fruits & vegetables, low-salt food, and low-calorie food in order to help you lose weight and live a healthy lifestyle. - Discuss an exercise program with your Primary Care Physician. We recommended that most individuals exercise for 20 minutes at least 5 times per week 4. In the case of emergency: - Please call your physician or report to the nearest emergency room if you develop new or concerning symptoms, including, but not limited to, chest pain, palpitations, shortness of breath, nausea, vomiting, confusion, and/or numbness or tingling. Thank you for allowing us to participate in your care. Sincerely, [facility] phone number: Scheduling line phone number: ESSOR OF SPORT MANAGEMENT documented in this encounter Medications at Time [...] as of this encounter Progress Notes * Elaina Jay RN - 06/28/2023 5:27 PM CST Patient met criteria for discharge per provider order. Report called to clifford William RN. EMS crew is here to transport the patient to [facility]. ESSOR OF SPORT MANAGEMENT * Elaina Jay RN - 06/28/2023 11:42 AM CST Report called and given to ALFRED William at [facility]. RN started no need for full patient history, had patient before, familiar with patient's history . Trach supplies will be sent with patient via [facility]. ESSOR OF SPORT MANAGEMENT * Romana Laird MSW - 06/28/2023 11:16 AM CST Facility Transfer Note Level of Care: Actual level of care at discharge: [facility] - Skilled Facility Facility Name: (include name of person confirming admission): Actual discharge provider: [facility] ([facility] and [facility]) NH Made Aware of Special Needs (if applicable): N/A RN Call Report to: [phone], [address] [place] nurse Fax D/C Orders to: [phone] Transportation (company and number): [facility] Certificate of Medical Necessity rationale: Complete Date/time of transfer: 06/28/2023 at 12pm Accepting MD and contact #: Dr. Restrepo Completed and Signed [id number] (if applicable): N/A Family/Other Notified of Transfer (name/phone): Sister Adriane [phone] Authorization Skilled Care: N/A Authorization for Transportation: N/A Verified Qualifying Stay(Skilled Only): NOT APPLICABLE Comments: Name/Phone number: CLARITA Varma [phone] ESSOR OF SPORT MANAGEMENT * Elaina Jay RN - 06/28/2023 8:49 AM CST Problem: Nutrient: Inadequate protein-energy intake Goal: Total intake will meet estimated nutrient needs Outcome: Progressing Problem: Fall Risk Goal: Fall risk and [...] is maintained or improved Outcome: Progressing Problem: Impaired Gas Exchange Goal: Resp rate/effort will be within specified limits Outcome: Progressing Problem: Ineffective Airway Clearance Goal: Patent airway Outcome: Progressing ESSOR OF SPORT MANAGEMENT * Riky Monteiro RN - 06/28/2023 12:45 AM CST All goals ongoing Problem: Nutrient: Inadequate protein-energy intake Goal: Total intake will meet estimated nutrient needs Outcome: Progressing Problem: Fall Risk Goal: Fall risk and [...] is maintained or improved Outcome: Progressing Problem: Safety related to restraint use Goal: Absence of injury while restrained Outcome: Progressing Problem: Impaired Gas Exchange Goal: Resp rate/effort will be within specified limits Outcome: Progressing Problem: Ineffective Airway Clearance Goal: Patent airway Outcome: Progressing ESSOR OF SPORT MANAGEMENT * Romana Laird MSW - 06/27/2023 12:44 PM CST Care Coordination Progress Note Anticipated level of care at discharge: [facility] - Skilled Facility: Anticipated level of care provider: [facility] ([facility] and [facility]): Anticipated Discharge Date: 06/29/23: Discharge Plan: ASHWIN spoke to Yaz from [facility] ([facility]) [phone] regarding patient's return to the facility. She stated that patient is able to return andasked for some updates to be sent. ASHWIN will send updates via fax. Orientation Level: Oriented to Person: Family Support (Name and Phone): Extended Emergency Contact Information Primary Emergency Contact: Adriane Hilliard Mobile Relation: Sister Tray Drier needed? No Secondary Emergency Contact: Amarjit Tabor [facility] Relation: Brother Transportation at Discharge: Ambulance: READMISSION RISK SCORE is 21 at 12:44 PM 06/27/2023.: Name: CLARITA Varma [phone] ESSOR OF SPORT MANAGEMENT * Valerie Isaacs RN - 06/27/2023 12:15 PM CST Care Coordination Progress Note Anticipated level of care at discharge: [facility] - Skilled Facility: Anticipated level of care provider: [facility] ([facility] and [facility]): Anticipated Discharge Date: 01/31/24: Discharge Plan: Return to [facility] when medically ready. cEEG Orientation Level: Oriented to Person: Family Support (Name and Phone): Extended Emergency Contact Information Primary Emergency Contact: Adriane Hilliard Mobile Relation: Sister Tray Drier needed? No Secondary Emergency Contact: Amarjit Tabor [facility] Relation: Brother Transportation at Discharge: Ambulance: READMISSION RISK SCORE is 22 at 12:15 PM 06/27/2023.: Name: Valerie Isaacs RN [phone] ESSOR OF SPORT MANAGEMENT * Leatha Vinson MD - 06/27/2023 11:38 AM CST General Neurology Progress Note Bi Tabor Age: [age] year old Date of : 1960 Date of Admission: 06/09/2023 Hospital Day: 18 Subjective Brief HPI: Bi Tabor is a 63 year old male w/ PMH of eliplepsy (L tempero-occipital lobes), CHRF s/p trach and PEG, HTN, HLD, PAD s/p L AKA, Hx of CVA's and vascular dementia who was admitted for acute encephalopathy. At baseline, patient is A&Ox3, though dependent on all ADLs. Patient found to have PNA as well as Pseudomonas UTI. Patient completed course w/ ceftolozane/tazobactam and vancomycin. Patient then found to have seizure on 06/20, neurology consulted. Patient loaded w/ vimpat 600mg and started on cEEG. Had additional seizure after vimpat load. Patient continued to have clinical and electrographic seizures, loaded w/ fosphenytoin and clobazam increased to 20 BID. Valproic acid increased to 750mg QID. S/p valproic acid load 06/24 w/ increase in maintenance dose to 1000mg QID. He then continued to have electrographic seizures, though duration seems to be decreasing. No clinical seizures. Mental status returning to baseline. Interval History: Patient doing well today. Talking and interactive. Can follow commands. Objective Patient Vitals for the past 24 hrs: BP Temp Temp src Pulse Resp SpO2 06/27/23 0846 112/83 98 ??F (36.7 ??C) Axillary 76 17 95 % 06/27/23 0834 -- -- -- 79 -- 94 % 06/27/23 0106 -- -- -- -- -- 99 % 06/27/23 0001 113/68 97.7 ??F (36.5 ??C) -- 84 18 100 % 06/26/232000 -- -- -- -- 18 96 % 06/26/23 1653 107/70 97 ??F (36.1 ??C) Oral 89 18 96 % 06/26/23 1632 -- -- -- 90 -- 96 % 06/26/23 1213 -- -- -- 104 -- 97 % Intake/Output Summary (Last 24 hours) at 06/27/2023 1139 Last data filed at 06/27/2023 1028 Gross per 24 hour Intake 360 ml Output 1475 ml Net -1115 ml Exam: Cortical Function Mental Status Opens eyes to voice, follows commands Orientation AxOx2 Language Answers appropriately. Trach. Visual Ivan Unable to determine Neglect Unable [...] Motor Function Movement No abnormalities noted Bulk No abnormalities noted Tone No abnormalities noted Muscle Stretch Reflexes BI TRI BR PAT ACH TOES Right 3 2 3 0 0 Left 3 2 3 AKA AKA AKA Sensory Light Touch Unable to determine Noxious Stimuli withdraws Temperature Not tested Pallesthesia Not tested Cerebellar FNF FREEDOM HKS Right Intact Deferred Deferred Left Intact Deferred AKA Gait Deferred Labs: Recent Labs Component Name 06/27/2315506/26/2331806/25/23 0656 WBC 7.8 7.9 11.2* RBC 3.88* 3.98* 3.87* HGB 12.5* 12.8* 12.4* HCT 38.5* 38.1* 37.4* Recent Labs Component Name 06/27/2315506/26/239 06/25/23 0656 NA 137 141 139 CL 105 106 102 CO2 26 26 25 BUN 23 20 19 CREATININE 0.55* 0.54* 0.52* CALCIUM 9.2 9.0 9.3 Recent Labs Component Name 06/27/23 0156 06/26/23 0319 06/25/23 0656 PHOS 3.5 2.6* 2.9 Imaging: Reviewed Assessment and Plan #Breakthrough seizures #Epilepsy #Encephalopathy -Patient home regimen: keppra 2g BID, vimpat 200mg BID, valproic acid 500mg QID, clobazam 10mg AM and 15mg PM. -Patient vimpat was not started -s/p vimpat load w/ 600mg on 06/20 -s/p fosphenytoin load 06/21 -Last valproic acid level 65 on 06/22/23 -Valproic acid level 99 today, however this was drawn after morning dose was given -s/p valproic acid load 20m/kg on 06/24 -electrographic seizure duration seems to be decreasing, no clinical seizures noted PLAN -Cont lobazam to 20mg BID, valproic acid 1000mg QID, vimpat 200mg BID, keppra 2g BID #Hyperkalemia, improving -K slowly increasing since admission -potentially from dehydration vs TF -CTM, may consider Lokelma if >5.0 #Hypophosphatemia Likely from poor nutrition Repleting TID for 1 day and watching K level #Sepsis 2/2 UTI, resolved #MDR Pneumonia, resolved -Patient completed course of Zebraxa and vanc -ID was following, now s/o -CXR unremarkable -Bronchial hygiene w/ aerobika, duo nebs PRN #HTN #HLD -Cont metoprolol tartrate 25mg BID and lipitor 40mg qday, ASA #Nutrition -TF -Nutrition following #Chronic hypoxic respiratory failure s/p trach and PEG -Cont trach collar Discussed with General Neurology Attending Physician, Dr. Alisson Hays, DO Attending Note: I have seen and examined the patient with the resident. I confirm the history, physical findings, assessment, and plan as documented. Time spent with patient/proxy: I personally spent 26 minutes on 06/27/23 preparing to see the patient (e.g. reviewing chart, review of tests), obtaining and/or reviewing the separately obtained history, performing a medically necessary and appropriate examination and evaluation, counseling and educating the patient/family/caregiver, ordering medications, tests, or procedures, documenting in the patient record, and communicating results to the patient/family/caregiver. Leatha Vinson MD., PhD. ESSOR OF SPORT MANAGEMENT * Mira Wiley - 06/27/2023 7:08 AM CST *This is a student note, primarily for learning purposes.* General Neurology Progress Note Bi Tabor Age: [age] year old Date of : 1960 Date of Admission: 06/09/2023 Hospital Day: 18 Subjective Hospital Course: Bi Tabor is a 63 year old male with PMHx of epilepsy, chronic hypoxic respiratory failure s/p tracheostomy and PEG placement, HTN, HLD, previous stroke/vascular dementia, peripheral artery disease s/p above the knee amputation on the left side -- brought to [facility] for altered mental status. He was also found to have pneumonia and UTI. Completed a course of Ceftolozane/Tazobactam and Vancomycin and has since improved. On 06/20, patient had 3 seizure events within 30 minutes, each lasting 1-2 minutes that involved R facial twitching and eye deviation to the L side. Patient was sleepy and staring after the episodes. Neurology consulted at this point. Patient loaded with Vimpat 600mg and started on cEEG. Had additional seizure after Vimpat load. Patient continued to have clinical and electrographic seizures, loaded with Fosphenytoin and Clobazam dose increased to 20 BID. Valproic acid increased to 750mg QID. S/pValproic acid load 06/24 with increase in maintenance dose to 1,000mg QID. Interval History: Increasingly alert today. Attempting to speak, but having difficulty due to large amount of secretions. Able to follow commands and make thumbs up/peace sign. Objective Patient Vitals for the past 24 hrs: BP Temp Temp src Pulse Resp SpO2 06/27/23 0106 -- -- -- -- -- 99 % 06/27/23 0001 113/68 97.7 ??F (36.5 ??C) -- 84 18 100 % 06/26/232000 -- -- -- -- 18 96 % 06/26/23 1653 107/70 97 ??F (36.1 ??C) Oral 89 18 96 % 06/26/23 1632 -- -- -- 90 -- 96 % 06/26/23 1213 -- -- -- 104 -- 97 % 06/26/23 0821 -- -- -- (!) 114 24 94 % 06/26/23 0800 115/81 97.8 ??F (36.6 ??C) Oral 109 18 94 % Intake/Output Summary (Last 24 hours) at 06/27/2023 0708 Last data filed at 06/27/2023 0442 Gross per 24 hour Intake 480 ml Output 1200 ml Net -720 ml Exam: Physical exam severely limited due to patient's mental status. Cortical Function Mental Status Awake, alert, follows commands, opens eyes to tactile/verbal stimulation, grimaces topainful stimuli. Orientation A&Ox1. Knows his own name, but says he is at home and the year is 1993. Language Unable to assess Visual Ivan Unable to assess Neglect Unable to assess Cranial Nerves II Pupils 3 mm and bilaterally reactive to light. Fundoscopic exam not performed. VIII Unable to assess. III/IV/ Extraocular muscles appear to be intact. No diplopia, ptosis, nystagmus, or convergence. IX/X Unable to assess. V Unable to assess. XI Unable to assess. VII No facial palsy seen. XII Unable to assess. Motor Function Movement Moving bilateral UE spontaneously. No abnormal movements noted. Bulk Normal bulk. Tone Spasticity present in bilateral UE. Proximal Upper Distal Upper Proximal Lower Distal Lower Right 4+ 4+ Left 4+ 4+ -- Palmar grasp reflex in BL hands, good strength, able to release when asked to. Muscle Stretch Reflexes BI TRI BR PAT ACH TOES Right 3 2 3 0 0 Left 3 2 3 -- -- -- Sensory Light Touch Unable to assess Noxious Stimuli Withdraws to pain. Temperature Unable to assess. Pallesthesia Unable to assess. Cerebellar FNF FREEDOM HKS Right Unable to assess Unable to assess Unable to assess Left Unable to assess Unable to assess Unable to assess Gait Deferred Imaging: - Reviewed. No new imaging done in past 24 hours. - Patient on continuous EEG, will continue to review. - Recent CXR unremarkable. Labs: Recent Labs Component Name 06/27/23 0156 06/26/23 0319 06/25/23 0656 WBC 7.8 7.9 11.2* RBC 3.88* 3.98* 3.87* HGB 12.5* 12.8* 12.4* HCT 38.5* 38.1* 37.4* Recent Labs Component Name 06/27/23 0156 06/26/23 0319 06/25/23 0656 NA 137 141 139 CL 105 106 102 CO2 26 26 25 BUN 23 20 19 CREATININE 0.55* 0.54* 0.52* CALCIUM 9.2 9.0 9.3 Recent Labs Component Name 06/27/23 0156 06/26/23 0319 06/25/23 0656 MAGNESIUM 2.0 2.0 1.8 Recent Labs Component Name 06/09/23 1314 02/24/23 1032 12/31/22 2053 PT 13.5 14.1 13.7 INR 1.1 1.1 1.1 Recent Labs Component Name 08/29/22 0537 05/12/22 0314 01/01/22 0349 HGBA1C 4.4 4.4 5.6 EAG 80 80 114 Recent Labs Component Name 01/14/23 0935 01/02/23 0339 07/07/22 0345 04/11/15 0622 CHOL - - - 196 HDL - - - 81 LDLCALC - - - 102* TRIG 339* 736* 102 63 Recent Labs Component Name 06/09/23 1314 TSH 1.238 Recent Labs Component Name 01/02/23 1008 07/11/22 0040 07/01/22 1634 06/28/22 0141 06/27/22 2215 05/30/22 1750 CKTOTAL 51 49 42 - - - TROPONINI - - - <0.010 <0.010 <0.010 Assessment/Plan Bi Tabor is a 63 year old male with PMHx of epilepsy, chronic hypoxic respiratory failure s/p tracheostomy and PEG placement, HTN, HLD, previous stroke/vascular dementia who was brought to [facility] for altered mental status. He was found to have a UTI and pneumonia and has completed antibiotic courses for both infections. He is now having breakthrough seizures for which neurology was consulted for. #Breakthrough seizures; #Epilepsy - Home regimen: Keppra 2g BID, Vimpat 200mg BID, Valproic acid 500mg QID, Clobazam 10mg AM and 15mgPM. - Vimpat has not been taken since March 2023, and was not started upon admission to [facility]. Has since been restarted at home dose. - Vimpat load 600mg on 06/20 - Fosphenytoin load on 06/21 - Valproic acid load 20mg/kg on 06/24 - Keppra level 47 on 06/21. Clobazam level 264 on 06/21. Valproic acid level 51 on 06/25. - Electrographic seizure duration appears to be decreasing, with no clinical seizures noted. PLAN: - Discontinue EEG. - Continue current AED regimen: Keppra 2g BID, Vimpat 200mg BID, Valproic Acid 1g QID, Clobazam 20mg BID #Sepsis due to UTI, resolved; #MDR pneumonia, resolved - Completed course of Zebraxa and Vancomycin - ID followed, but has now signed off - Repeat CXR on 06/25 unremarkable #HTN PLAN: - Continue home Metoprolol tartrate 25mg BID - Continue home ASA #HLD PLAN: - Continue home Lipitor 20mg qD #Nutrition PLAN: - Tube feeds - Nutrition following #Hyperkalemia; #Hypophosphatemia - 06/26 K 4.8, PO4 2.6 - 06/27 K 4.5, PO4 3.5 PLAN: - Currently resolved, but CTM. #Chronic hypoxic respiratory failure s/p trach and PEG; increased secretions PLAN: - Continue trach collar - Continue regular suctioning - Bronchial hygiene w/ aerobika, duo nebs PRN?? Patient seen and discussed with attending physician, Dr. Leatha Vinson. Mira Wiley, MS3 Neurology [employer] * Riky Monteiro RN - 06/27/2023 1:02 AM CST All goals ongoing Problem: Nutrient: Inadequate protein-energy intake Goal: Total intake will meet estimated nutrient needs Outcome: Progressing Problem: Fall Risk Goal: Fall risk and [...] is maintained or improved Outcome: Progressing Problem: Safety related to restraint use Goal: Absence of injury while restrained Outcome: Progressing Problem: Impaired Gas Exchange Goal: Resp rate/effort will be within specified limits Outcome: Progressing Problem: Ineffective Airway Clearance Goal: Patent airway Outcome: Progressing [employer] * Leatha Vinson MD - 06/26/2023 10:04 AM CST General Neurology Progress Note Bi Tabor Age: [age] year old Date of : 1960 Date of Admission: 06/09/2023 Hospital Day: 17 Subjective Brief HPI: Bi Tabor is a 63 year old male w/ PMH of eliplepsy (L tempero-occipital lobes), CHRF s/p trach and PEG, HTN, HLD, PAD s/p L AKA, Hx of CVA's and vascular dementia who was admitted for acute encephalopathy. Patient found to have PNA as well as Pseudomonas UTI. Patient completed course w/ ceftolozane/tazobactam and vancomycin. Patient then found to have seizure on 06/20, neurology consulted. Patient loaded w/ vimpat 600mg and started on cEEG. Had additional seizure after vimpat load. Patient continued to have clinical and electrographic seizures, loaded w/ fosphenytoin and clobazam increased to 20 BID. Valproic acid increased to 750mg QID. S/p valproic acid load 06/24 w/ increase in maintenance dose to 1000mg QID Interval History: Still interactive, tracking and following commands. CXR unremarkable. Objective Patient Vitals for the past 24 hrs: BP Temp Temp src Pulse Resp SpO2 06/26/23 0821 -- -- -- (!) 114 24 94 % 06/26/23 0800 115/81 97.8 ??F (36.6 ??C) Oral 109 18 94 % 06/26/23 0631 -- -- -- 103 -- -- 06/26/23 0421 115/95 99 ??F (37.2 ??C) Oral (!) 118 -- 93 % 06/26/23 0019 107/70 99 ??F (37.2 ??C) Oral (!) 111 -- 93 % 06/25/232027 113/74 97.7 ??F (36.5 ??C) Oral 100 -- 94 % 06/25/232002 106/74 -- -- 98 -- -- 06/25/231947 -- -- -- 101 30 94 % 06/25/237 110/70 97.5 ??F (36.4 ??C) Oral 103 18 96 % 06/25/23 1155 103/64 98.1 ??F (36.7 ??C) Oral 78 18 100 % 06/25/23 1037 123/81 -- -- 95 -- -- Intake/Output Summary (Last 24 hours) at 06/26/2023 1004 Last data filed at 06/26/2023 0800 Gross per 24 hour Intake 2599 ml Output 1500 ml Net 1099 ml Exam: Cortical Function Mental Status Opens eyes to voice, follows commands Orientation AxOx0 Language Answers appropriately. Trach. Visual Ivan Unable to determine Neglect Unable [...] Motor Function Movement No abnormalities noted Bulk No abnormalities noted Tone No abnormalities noted Muscle Stretch Reflexes BI TRI BR PAT ACH TOES Right 3 2 3 0 0 Left 3 2 3 AKA AKA AKA Sensory Light Touch Unable to determine Noxious Stimuli withdraws Temperature Not tested Pallesthesia Not tested Cerebellar FNF FREEDOM HKS Right Intact Deferred Deferred Left Intact Deferred AKA Gait Deferred Labs: Recent Labs Component Name 06/26/23 0319 06/25/23 0656 06/24/23 1146 WBC 7.9 11.2* 19.6* RBC 3.98* 3.87* 4.26* HGB 12.8* 12.4* 13.7 HCT 38.1* 37.4* 40.9 Recent Labs Component Name 06/26/23 0319 06/25/23 0656 06/24/23 0716 NA 141 139 138 CL 106 102 103 CO2 26 25 25 BUN 20 19 16 CREATININE 0.54* 0.52* 0.47* CALCIUM 9.0 9.3 9.9 No results for input(s): MG in the last 42706 hours. Recent Labs Component Name 06/26/23 0319 06/25/23 0656 06/24/23 0716 PHOS 2.6* 2.9 3.2 Recent Labs Component Name 06/09/23 1314 02/24/23 1032 12/31/22 2053 PT 13.5 14.1 13.7 INR 1.1 1.1 1.1 No results for input(s): A1C in the last 65131 hours. Recent Labs Component Name 01/14/23 0935 01/02/23 0339 07/07/22 0345 04/11/15 0622 CHOL - - - 196 HDL - - - 81 LDLCALC - - - 102* TRIG 339* 736* 102 63 Recent Labs Component Name 06/09/23 1314 TSH 1.238 Recent Labs Component Name 01/02/23 1008 07/11/22 0040 07/01/22 1634 06/28/22 0141 06/27/22 2215 05/30/22 1750 CKTOTAL 51 49 42 - - - TROPONINI - - - <0.010 <0.010 <0.010 Imaging: Reviewed Assessment and Plan #Breakthrough seizures #Epilepsy #Encephalopathy -Patient home regimen: keppra 2g BID, vimpat 200mg BID, valproic acid 500mg QID, clobazam 10mg AM and 15mg PM. -Patient vimpat was not started -s/p vimpat load w/ 600mg on 06/20 -s/p fosphenytoin load 06/21 -Last valproic acid level 65 on 06/22/23 -Valproic acid level 99 today, however this was drawn after morning dose was given -s/p valproic acid load 20m/kg on 06/24 -electrographic seizure duration seems to be decreasing, no clinical seizures noted PLAN -discontinue EEG -Cont lobazam to 20mg BID, valproic acid 1000mg QID, vimpat 200mg BID, keppra 2g BID #Hyperkalemia, improving -K slowly increasing since admission -potentially from dehydration vs TF -CTM, may consider Lokelma if >5.0 #Hypophosphatemia Likely from poor nutrition Repleting TID for 1 day and watching K level #Sepsis 2/2 UTI, resolved #MDR Pneumonia, resolved -Patient completed course of Zebraxa and vanc -ID was following, now s/o -CXR unremarkable -Bronchial hygiene w/ aerobika, duo nebs PRN #HTN #HLD -Cont metoprolol tartrate 25mg BID and lipitor 40mg qday, ASA #Nutrition -TF -Nutrition following #Chronic hypoxic respiratory failure s/p trach and PEG -Cont trach collar Discussed with General Neurology Attending Physician, Dr. Alisson Caraballo MD PGY-2 Neurology Resident Attending Note: I have seen and examined the patient with the resident. I confirm the history, physical findings, assessment, and plan as documented. Time spent with patient/proxy: I personally spent 25 minutes on 06/26/23 preparing to see the patient (e.g. reviewing chart, review of tests), obtaining and/or reviewing the separately obtained history, performing a medically necessary and appropriate examination and evaluation, counseling and educating the patient/family/caregiver, ordering medications, tests, or procedures, documenting in the patient record, and communicating results to the patient/family/caregiver. Leatha Vinson MD., PhD. [employer] * Ilda Phan RN - 06/26/2023 1:41 AM CST Problem: Nutrient: Inadequate protein-energy intake Goal: Total intake will meet estimated nutrient needs Outcome: Progressing Problem: Fall Risk Goal: Fall risk and [...] is maintained or improved Outcome: Progressing Problem: Safety related to restraint use Goal: Absence of injury while restrained Outcome: Progressing Problem: Impaired Gas Exchange Goal: Resp rate/effort will be within specified limits Outcome: Progressing Problem: Ineffective Airway Clearance Goal: Patent airway Outcome: Progressing [employer] * Leatha Vinson MD - 06/25/2023 7:42 AM CST Neurology Progress Note Patient: Bi Tabor Age: [age] year old Admission Date and Time: 06/09/2023 Subjective Reason for consult/Chief Complaint: Break through seizures History of Presenting Illness: Bi Tabor is a 63 year old male w/ PMH of eliplepsy (L tempero-occipital lobes), CHRF s/p trach and PEG, HTN, HLD, PAD s/p L AKA, Hx of CVA's and vascular dementia who was admitted for acute encephalopathy. Patient found to have PNA as well as Pseudomonas UTI. Patient completed course w/ ceftolozane/tazobactam and vancomycin. Patient then found to have seizure on 06/20, neurology consulted. Patient loaded w/ vimpat 600mg and started on cEEG. Had additional seizure after vimpat load. Patient continued to have clinical and electrographic seizures, loaded w/ fosphenytoin and clobazam increased to 20 BID. Valproic acid increased to 750mg QID. S/p valproic acid load 06/24 w/ increase in maintenance dose to 1000mg QID Overnight: Patient more interactive, saying some words such as his name, Isabella, I'm okay. Intermittently will follow some basic commands but still not consistent. Has been having thick secretions. Past Medical History No history on file. Past Medical History: Diagnosis Date Cerebrovascular disease HTN (hypertension) Seizure (CMS-HCC) Past Surgical History: Procedure Laterality Date ENDOSCOPY, UPPER N/A 03/25/2022 N/A; ESOPHAGOGASTRODUODENOSCOPY (EGD) DIAGNOSTIC with PEG Placement ENT SURGERY N/A 07/15/2022 N/A; TRANSCERVICAL ZENKERS DIVERTICULECTOMY, OPEN TRACHEOSTOMY Leg Amputation, Below Knee Left 03/15/2022 Left; LEFT BKA POSS AKA SINUS SURGERY N/A 11/26/2022 N/A; Bilateral Nasal Endoscopy, Right polypectomy, Right Maxillary Antrostomy, Rihjy Anterior Ethmoidectomy Allergies Allergies Allergen Reactions Clonazepam Psychiatric hallucinations Family History FMHx: Family history has been reviewed and is non contributory Social History Social history has been reviewed and is non contributory to current case. Objective BP 110/68 Pulse 89 Temp 98.5 ??F (36.9 ??C) (Oral) Resp 19 Ht 1.778 m (5' 10 ) Wt 80.3 kg(177 lb) SpO2 96% Temp (30hrs) Max:98.5 ??F (36.9 ??C) Body mass index is 25.4 kg/m??. Exam: General: Con - NAD, afebrile Heent - NCAT, MMM, anicteric Neck - No JVD, LAD, trachea midline CV - RRR for age, normal s1/s2, no m/r/g Pulm - CTAB, no w/r/r Abd - BS+, soft, NTND Ext: No c/c/e, 2+ dpp, normal ROM Cortical Function Mental Status Will withdraw to painful stimuli, opens eyes to name Orientation AxOx0 Language Unable to determine Visual Ivan Unable to determine Neglect Unable [...] Motor Function Movement No abnormalities noted Bulk No abnormalities noted Tone No abnormalities noted Muscle Stretch Reflexes BI TRI BR PAT ACH TOES Right 3 2 3 0 0 Left 3 2 3 Sensory Light Touch Unable to determine Noxious Stimuli withdraws Temperature Not tested Pallesthesia Not tested Cerebellar FNF FREEDOM HKS Right Intact Deferred Deferred Left Intact Deferred Deferred Gait Deferred Labs: Results for orders placed or performed during the hospital encounter of 01/11/24 (from the past 24 hour(s)) CBC W AUTO DIFFERENTIAL Result Value Ref Range WBC 19.6 (H) 4.0 - 10.7 x10E9/L RBC Count 4.26 (L) 4.30 - 5.80 x10E12/L Hemoglobin 13.7 13.3 - 17.5 g/dL Hematocrit 40.9 38.7 - 51.1 % MCV 96.0 80.0 - 98.0 fL MCH 32.2 26.7 - 33.6 pg MCHC 33.5 31.7 - 36.3 g/dL RDW-CV 15.3 (H) 11.3 - 14.8 % Platelet Count 326 150 - 420 x10E9/L MPV 12.2 (H) 7.8 - 11.4 fL NRBC 0.2 (H) <=0.0 /100 WBC DIFFERENTIAL MANUAL Result Value Ref Range Neutrophil % 69 41 - 74 % Lymphocyte % 18 17 - 47 % Monocyte % 12 (H) 3 - 11 % Eosinophil % 1 0 - 7 % Neutrophil Absolute 13.52 (H) 1.60 - 7.50 x10E9/L Lymphocyte Absolute 3.53 1.00 - 4.40 x10E9/L Monocyte Absolute 2.35 (H) 0.15 - 1.00 x10E9/L Eosinophil Absolute 0.20 0.00 - 0.60 x10E9/L RBC Morphology REVIEWED Polychromatic Cells MODERATE (Abnormal) (none) Schistocytes FEW (Abnormal) (none) CBC W AUTO DIFFERENTIAL Result Value Ref Range WBC 11.2 (H) 4.0 - 10.7 x10E9/L RBC Count 3.87 (L) 4.30 - 5.80 x10E12/L Hemoglobin 12.4 (L) 13.3 - 17.5 g/dL Hematocrit 37.4 (L) 38.7 - 51.1 % MCV 96.6 80.0 - 98.0 fL MCH 32.0 26.7 - 33.6 pg MCHC 33.2 31.7 - 36.3 g/dL RDW-CV 15.7 (H) 11.3 - 14.8 % Platelet Count 253 150 - 420 x10E9/L MPV 12.1 (H) 7.8 - 11.4 fL Neutrophil % 52.7 41.0 - 74.0 % Lymphocyte % 35.5 17.0 - 47.0 % Monocyte % 9.1 3.0 - 11.0 % Eosinophil % 2.0 0.0 - 7.0 % Basophil % 0.2 0.0 - 1.6 % Immature Granulocytes % 0.5 0.0 - 1.0 % Neutrophil Absolute 5.92 1.60 - 7.50 x10E9/L Lymphocyte Absolute 3.99 1.00 - 4.40 x10E9/L Monocyte Absolute 1.02 (H) 0.15 - 1.00 x10E9/L Eosinophil Absolute 0.23 0.00 - 0.60 x10E9/L Basophil Absolute 0.02 0.00 - 0.13 x10E9/L NRBC 0.2 (H) <=0.0 /100 WBC Neuroimaging: Reviewed Assessment and Plan: #Breakthrough seizures #Epilepsy #Encephalopathy -Patient home regimen: keppra 2g BID, vimpat 200mg BID, valproic acid 500mg QID, clobazam 10mg AM and 15mg PM. -Patient vimpat was not started -s/p vimpat load w/ 600mg on 06/20 -s/p fosphenytoin load 06/21 -Last valproic acid level 65 on 06/22/23 -Valproic acid level 99 today, however this was drawn after morning dose was given -s/p valproic acid load 20m/kg on 06/24 -electrographic seizure seem to be decreasing, no clinic seizures noted PLAN -cEEG -Cont lobazam to 20mg BID, valproic acid 1000mg QID, vimpat 200mg BID, keppra 2g BID #Hyperkalemia, improving -K slowly increasing since admission, 5->4.7->4.3 -potentially from dehydration vs TF -CTM, may consider lokelma if continues to rise #Sepsis 2/2 UTI, resolved #MDR Pneumonia, resolved -Patient completed course of Zebraxa and vanc -ID was following, now s/o -Will get CXR, if worsening, will consider pulm consult for potential therapeutic bronch -Bronchial hygiene w/ aerobika, duo nebs PRN #HTN #HLD -Cont metoprolol tartrate 25mg BID and lipitor 40mg qday, ASA #Nutrition -TF -Nutrition following #Chronic hypoxic respiratory failure s/p trach and PEG -Cont trach collar Discussed with General Neurology Attending Physician, Dr. Alisson Morrison, Internal Medicine, PGY-3 Pager [phone] 06/25/2023 7:43 AM Attending Note: I have seen and examined the patient with the resident. I confirm the history, physical findings, assessment, and plan as documented. Time spent with patient/proxy: I personally spent 27 minutes on 06/25/23 preparing to see the patient (e.g. reviewing chart, review of tests), obtaining and/or reviewing the separately obtained history, performing a medically necessary and appropriate examination and evaluation, counseling and educating the patient/family/caregiver, ordering medications, tests, or procedures, documenting in the patient record, and communicating results to the patient/family/caregiver. Leatha Vinson MD., PhD. [employer] * Mira Wiley - 06/25/2023 7:07 AM CST *This is a student note, primarily for learning purposes.* General Neurology Progress Note Bi Tabor Age: [age] year old Date of : 1960 Date of Admission: 06/09/2023 Hospital Day: 16 Subjective Hospital Course: Bi Tabor is a 63 year old male with PMHx of epilepsy, chronic hypoxic respiratory failure s/p tracheostomy and PEG placement, HTN, HLD, previous stroke/vascular dementia brought to [facility] for altered mental status. He was also being treated for pneumonia and UTI. Completed a course of Ceftolozane/ Tazobactam and Vancomycin and has since improved. Requires frequent suctioning to maintain target SpO2 level. On 06/20, patient had 3 seizure events within 30 minutes, each lasting 1-2 minutes that involved R facial twitching and eye deviation to the L side. Patient was sleepy and staring after the episodes. Per patient's epileptologist, his anti-seizure regimen is as follows: Lacosamide 200mg BID, Leviteracetam 2000mg BID, Valproic acid 500mg QID, Clobazam 10mg in AM and 15mg in PM. [facility] has not been giving Lacosamide since March 2023. Lacosamide restarted on 06/20 with a 400mg load and further initiation of 200mg BID. Continuous EEG initiated on 06/20 as well. 06/21 patient loaded with fosphenytoin and Clobazam increased to 20 BID. 06/22 decreased seizures after fosphenytoin load, however still having multiple electrographic seizures. 06/23 continuing to have multiple electrographic seizures, decreasing in frequency and lasting less than one minute without clinical correlation; patient was more a lert but still minimally reactive. Interval History: Fairy alert today but still minimally reactive. Was able to tell me his name was Bi but did not know where he was. When I asked if he recognized me, he nodded his his head 'yes'. The nurse taking care of him overnight reported that he told her hey and I'm okay when prompted. Objective Patient Vitals for the past 24 hrs: BP Temp Temp src Pulse Resp SpO2 Weight 06/25/23 0428 110/68 98.5 ??F (36.9 ??C) Oral 89 -- 96 % -- 06/25/23 0400 -- -- -- -- -- -- 80.3 kg (177 lb) 06/25/23 0030 102/73 98.5 ??F (36.9 ??C) Oral 84 -- 95 % -- 06/24/23 2153 114/81 -- -- 95 -- -- -- 06/24/23 2104 106/74 98.3 ??F (36.8 ??C) Axillary 87 19 100 % -- 06/24/23 1616 -- -- -- (!) 113 18 99 % -- 06/24/23 1147 -- -- -- 106 16 97 % -- 06/24/23 0922 -- -- -- (!) 110 18 95 % -- Intake/Output Summary (Last 24 hours) at 06/25/2023 0707 Last data filed at 06/24/2023 2135 Gross per 24 hour Intake 120 ml Output 500 ml Net -380 ml Exam: Physical exam severely limited due to patient's mental status. Cortical Function Mental Status Awake, somewhat alert, unable to follow commands, opens eyes to tactile/verbal stimulation, grimaces to painful stimuli. Orientation A&Ox1. Knows name. Unable to identify his location when given three options. Language Unable to assess Visual Ivan Unable to assess Neglect Unable to assess Cranial Nerves II Pupils 3 mm and bilaterally reactive to light. Fundoscopic exam not performed. VIII Unable to assess. III/IV/ Extraocular muscles appear to be intact. Appears to have right gaze preference. IX/X Unable to assess. V Unable to assess. XI Unable to assess. VII No facial spasticity seen. XII Unable to assess. Motor Function Movement Moving bilateral UE spontaneously. No abnormal movements noted. Bulk Normal bulk. Tone Spasticity present in bilateral UE. Proximal Upper Distal Upper Proximal Lower Distal Lower Right 4+ 4+ Left 4+ 4+ -- Palmar grasp reflex in BL hands, good strength, does not release when asked to. Muscle Stretch Reflexes BI TRI BR PAT ACH TOES Right 3 2 3 0 0 Left 3 2 3 -- -- -- Sensory Light Touch Unable to assess Noxious Stimuli Withdraws to pain. Temperature Unable to assess. Pallesthesia Unable to assess. Cerebellar FNF FREEDOM HKS Right Unable to assess Unable to assess Unable to assess Left Unable to assess Unable to assess Unable to assess Gait Deferred Imaging: - Reviewed. No new imaging done in past 24 hours. - Patient on continuous EEG, will continue to review. Labs: Recent Labs Component Name 06/24/23 1146 06/23/23 0719 06/22/23 0608 WBC 19.6* 8.9 9.3 RBC 4.26* 3.78* 3.81* HGB 13.7 12.1* 12.2* HCT 40.9 36.3* 36.2* Recent Labs Component Name 06/24/23 0716 06/23/23 0719 06/22/23 1146 NA 138 137 132* CL 103 104 105 CO2 25 26 25 BUN 16 16 17 CREATININE 0.47* 0.45* 0.50* CALCIUM 9.9 9.3 9.0 Recent Labs Component Name 06/24/23 0716 06/23/23 0719 06/22/23 0608 MAGNESIUM 1.9 1.8 1.8 Recent Labs Component Name 06/09/23 1314 02/24/23 1032 12/31/22 2053 PT 13.5 14.1 13.7 INR 1.1 1.1 1.1 Recent Labs Component Name 08/29/22 0537 05/12/22 0314 01/01/22 0349 HGBA1C 4.4 4.4 5.6 EAG 80 80 114 Recent Labs Component Name 01/14/23 0935 01/02/23 0339 07/07/22 0345 04/11/15 0622 CHOL - - - 196 HDL - - - 81 LDLCALC - - - 102* TRIG 339* 736* 102 63 Recent Labs Component Name 06/09/23 1314 TSH 1.238 Recent Labs Component Name 01/02/23 1008 07/11/22 0040 07/01/22 1634 06/28/22 0141 06/27/22 2215 05/30/22 1750 CKTOTAL 51 49 42 - - - TROPONINI - - - <0.010 <0.010 <0.010 Assessment/Plan Bi Tabor is a 63 year old male with PMHx of epilepsy, chronic hypoxic respiratory failure s/p tracheostomy and PEG placement, HTN, HLD, previous stroke/vascular dementia who was brought to [facility] for altered mental status. He was found to have a UTI and pneumonia and has completed antibiotic courses for both infections. He is now having breakthrough seizures for which neurology was consulted for. #Breakthrough seizures; #Epilepsy - Current regimen: Keppra 2g BID, Vimpat 200mg BID, Valproic Acid 1g QID, Clobazam 20mg BID - Vimpat has not been taken since March 2023, and was not started upon admission to [facility]. Has since been restarted at home dose. - Keppra level 47 on 06/21. Valproic acid level 99 on 06/25 7am (level measured after morning dose). PLAN: - cEEG, continue to monitor. #Sepsis due to UTI, resolved; #MDR pneumonia, resolved - Completed course of Zebraxa and Vancomycin - ID followed, but has now signed off #HTN PLAN: - Continue home Metoprolol tartrate 25mg BID - Continue home ASA #HLD PLAN: - Continue home Lipitor 20mg qD #Nutrition PLAN: - Tube feeds - Nutrition following #Chronic hypoxic respiratory failure s/p trach and PEG; increased secretions PLAN: - Continue trach collar - Continue regular suctioning - Breathing treatment today - RT recommending pulm consult for therapeutic bronchoscopy. - Ordering CXR today due to increased amount of secretions. Patient seen and discussed with attending physician, Dr. Vinson. Mira Wiley, MS3 Neurology [employer] * Tiffani Unger RN - 06/24/2023 8:52 PM CST Received report from day shift RN that patient should be transferred to 5N room 512. Patient is currently resting with eys closed but opens eyes when I call his name. Unable to assess orientation at this time as patient is not answering questions. Vital signs checked. Patient on O2 via trach. Also has a PEG tube with tube feeds ongoing. Patient's report given to ALFRED Feliciano in 5N. feed mill lab technician and respiratory therapist informed about patient transfer as patient is on continuous EEG monitoring and trach collar for oxygen.. [employer] * Germania Anderson RN - 06/24/2023 5:02 PM CST Problem: Fall Risk Goal: Fall risk and fall related injury risk are minimized (interventions related to the fall risk can be found in the flowsheet documentation) Outcome: Progressing Problem: Nutrient: Inadequate protein-energy intake Goal: Total [...] is maintained or improved Outcome: Progressing Problem: Safety related to restraint use Goal: Absence of injury while restrained Outcome: Progressing Problem: Impaired Gas Exchange Goal: Resp rate/effort will be within specified limits Outcome: Progressing Problem: Ineffective Airway Clearance Goal: Patent airway Outcome: Progressing [employer] * Clover Crowley RN - 06/24/2023 2:12 PM CST Care Coordination Progress Note Anticipated level of care at discharge: [facility] - Skilled Facility: Anticipated level of care provider: [facility] (formerly [facility] and [facility]): Anticipated Discharge Date: 06/27/23: Discharge Plan: Return to SNF when medically ready. SW following for placement. Orientation Level: Unable to Obtain: Family Support (Name and Phone): Extended Emergency Contact Information Primary Emergency Contact: Adriane Hilliard Mobile Relation: Sister Tray Drier needed? No Secondary Emergency Contact: Amarjit Tabor [facility] Relation: Brother Transportation at Discharge: Ambulance: READMISSION RISK SCORE is 21 at 2:12 PM 06/24/2023.: Name: Clover Crowley RN Case Manager [phone] [employer] * Lynne Eastman RCP - 06/24/2023 9:34 AM CST RT assessed Pt this morning on rounds. Pt has a copious amount of thick secretions and it is very thick and tenacious and difficult to suction. A therapeutic bronchoscopy may help. [employer] * Leatha Vinson MD - 06/24/2023 8:14 AM CST Neurology Progress Note Patient: Bi Tabor Age: [age] year old Admission Date and Time: 06/09/2023 Subjective Reason for consult/Chief Complaint: Break through seizures History of Presenting Illness: Bi Tabor is a 63 year old male w/ PMH of eliplepsy (L tempero-occipital lobes), CHRF s/p trach and PEG, HTN, HLD, PAD s/p L AKA, Hx of CVA's and vascular dementia who was admitted for acute encephalopathy. Patient found to have PNA as well as Pseudomonas UTI. Patient completed course w/ ceftolozane/tazobactam and vancomycin. Patient then found to have seizure on 06/20, neurology consulted. Patient loaded w/ vimpat 600mg and started on cEEG. Had additional seizure after vimpat load. Patient continued to have clinical and electrographic seizures, loaded w/ fosphenytoin and clobazam increased to 20 BID. Valproic acid increased to 750mg QID. Overnight: Patient more alert this morning, will give thumbs up and squeeze on the R side. Opens eyes to verbal stimulation. Past Medical History No history on file. Past Medical History: Diagnosis Date Cerebrovascular disease HTN (hypertension) Seizure (CMS-HCC) Past Surgical History: Procedure Laterality Date ENDOSCOPY, UPPER N/A 03/25/2022 N/A; ESOPHAGOGASTRODUODENOSCOPY (EGD) DIAGNOSTIC with PEG Placement ENT SURGERY N/A 07/15/2022 N/A; TRANSCERVICAL ZENKERS DIVERTICULECTOMY, OPEN TRACHEOSTOMY Leg Amputation, Below Knee Left 03/15/2022 Left; LEFT BKA POSS AKA SINUS SURGERY N/A 11/26/2022 N/A; Bilateral Nasal Endoscopy, Right polypectomy, Right Maxillary Antrostomy, Rihjy Anterior Ethmoidectomy Allergies Allergies Allergen Reactions Clonazepam Psychiatric hallucinations Family History FMHx: Family history has been reviewed and is non contributory Social History Social history has been reviewed and is non contributory to current case. Objective BP 104/78 Pulse (!) 116 Temp 98.1 ??F (36.7 ??C) Resp 18 Ht 1.778 m (5' 10 ) Wt 81.6 kg (180 lb) SpO2 94% Temp (30hrs) Max:98.1 ??F (36.7 ??C) Body mass index is 25.83 kg/m??. Exam: General: Con - NAD, afebrile Heent - NCAT, MMM, anicteric Neck - No JVD, LAD, trachea midline CV - RRR for age, normal s1/s2, no m/r/g Pulm - CTAB, no w/r/r Abd - BS+, soft, NTND Ext: No c/c/e, 2+ dpp, normal ROM Cortical Function Mental Status Will withdraw to painful stimuli, opens eyes to name Orientation AxOx0 Language Unable to determine Visual Ivan Unable to determine Neglect Unable [...] Motor Function Movement No abnormalities noted Bulk No abnormalities noted Tone No abnormalities noted Muscle Stretch Reflexes BI TRI BR PAT ACH TOES Right 3 2 3 0 0 Left 3 2 3 Sensory Light Touch Unable to determine Noxious Stimuli withdraws Temperature Not tested Pallesthesia Not tested Cerebellar FNF FREEDOM HKS Right Intact Deferred Deferred Left Intact Deferred Deferred Gait Deferred Labs: Results for orders placed or performed during the hospital encounter of 06/09/23 (from the past 24 hour(s)) VALPROIC ACID LEVEL Result Value Ref Range Valproic Acid Total 65 50 - 100 ug/mL Neuroimaging: Reviewed Assessment and Plan: #Breakthrough seizures #Epilepsy #Encephalopathy -Patient home regimen: keppra 2g BID, vimpat 200mg BID, valproic acid 500mg QID, clobazam 10mg AM and 15mg PM. -Patient vimpat was not started -s/p vimpat load w/ 600mg on 06/20 -s/p fosphenytoin load 06/21 -Last valproic acid level 65 on 06/22/23 PLAN -cEEG -Cont clobazam to 20mg BID, vimpat 200mg BID, keppra 2g BID -Increase valproic acid to 1g QID from 750mg QID -Will load w/ 20mg/kg valproic acid #Hyperkalemia, improving -K slowly increasing since admission, 5->4.7 -potentially from dehydration vs TF -CTM, may consider lokelma if continues to rise #Sepsis 2/2 UTI, resolved #MDR Pneumonia, resolved -Patient completed course of Zebraxa and vanc -ID was following, now s/o #HTN #HLD -Cont metoprolol tartrate 25mg BID and lipitor 40mg qday, ASA #Nutrition -TF -Nutrition following #Chronic hypoxic respiratory failure s/p trach and PEG -Cont trach collar Discussed with General Neurology Attending Physician, Dr. Kristen Morrison, DO Internal Medicine, PGY-3 Pager [phone] 06/24/2023 8:14 AM Attending Note: I have seen and examined the patient with the resident. I confirm the history, physical findings, assessment, and plan as documented. Time spent with patient/proxy: I personally spent 30 minutes on 06/24/23 preparing to see the patient (e.g. reviewing chart, review of tests), obtaining and/or reviewing the separately obtained history, performing a medically necessary and appropriate examination and evaluation, counseling and educating the patient/family/caregiver, ordering medications, tests, or procedures, documenting in the patient record, and communicating results to the patient/family/caregiver. Leatha Vinson MD., PhD. [employer] * Mira Wiley - 06/24/2023 7:16 AM CST *This is a student note, primarily for learning purposes.* General Neurology Progress Note Bi Tabor Age: [age] year old Date of : 1960 Date of Admission: 06/09/2023 Hospital Day: 15 Subjective Hospital Course: Bi Tabor is a 63 year old male with PMHx of epilepsy, chronic hypoxic respiratory failure s/p tracheostomy and PEG placement, HTN, HLD, previous stroke/vascular dementia brought to [facility] for altered mental status. He was also being treated for pneumonia and UTI. Completed a course of Ceftolozane/ Tazobactam and Vancomycin and has since improved. Requires frequent suctioning to maintain target SpO2 level. On 06/20, patient had 3 seizure events within 30 minutes, each lasting 1-2 minutes that involved R facial twitching and eye deviation to the L side. Patient was sleepy and staring after the episodes. Per patient's epileptologist, his anti-seizure regimen is as follows: Lacosamide 200mg BID, Leviteracetam 2000mg BID, Valproic acid 500mg QID, Clobazam 10mg in AM and 15mg in PM. [facility] has not been giving Lacosamide since March 2023. Lacosamide restarted on 06/20 with a 400mg load and further initiation of 200mg BID. Continuous EEG initiated on 06/20 as well. 06/21 patient loaded with fosphenytoin and Clobazam increased to 20 BID. 06/22 decreased seizures after fosphenytoin load, however still having multiple electrographic seizures. 06/23 continuing to have multiple electrographic seizures, decreasing in frequency and lasting less than one minute without clinical correlation; patient was more a lert but still minimally reactive. Interval History: Increasingly alert today but still minimally reactive. Is not communicating verbally and not able to identify his own name out of a line-up. Increased oral secretions today. Objective Patient Vitals for the past 24 hrs: BP Temp Pulse Resp SpO2 06/24/23 0440 -- -- -- -- 94 % 06/24/23 0414 104/78 98.1 ??F (36.7 ??C) (!) 116 18 96 % 06/24/23 0100 -- -- -- -- 97 % 06/23/23 2309 106/76 98 ??F (36.7 ??C) 92 20 98 % 06/23/232011 -- -- 93 20 94 % 06/23/23 1951 109/71 97.8 ??F (36.6 ??C) 93 20 95 % 06/23/23 1500 -- -- 100 -- 97 % 06/23/23 0853 -- -- 102 -- 97 % Intake/Output Summary (Last 24 hours) at 06/24/2023 0716 Last data filed at 06/24/2023 0654 Gross per 24 hour Intake 120 ml Output 2700 ml Net -2580 ml Exam: Physical exam severely limited due to patient's mental status. Cortical Function Mental Status Asleep, increasingly alert, unable to follow commands, opens eyes to tactile/verbal stimulation, grimaces to painful stimuli. Does not nod to yes/no questions. Orientation A&Ox0. Unable to identify his name when given three options. Language Unable to assess Visual Ivan Unable to assess Neglect Unable to assess Cranial Nerves II Pupils 3 mm and bilaterally reactive to light. Fundoscopic exam not performed. VIII Unable to assess. III/IV/ Extraocular muscles appear to be intact. Appears to have right gaze preference. IX/X Unable to assess. V Unable to assess. XI Unable to assess. VII Unable to assess. XII Unable to assess. Motor Function Movement Moving bilateral UE spontaneously. No abnormal movements noted. Bulk Normal bulk. Tone Spasticity present in bilateral UE. Proximal Upper Distal Upper Proximal Lower Distal Lower Right 4+ 4+ Left 4+ 4+ -- Palmar grasp reflex in the R hand, good strength, does not release when asked to. Muscle Stretch Reflexes BI TRI BR PAT ACH TOES Right 3 2 3 0 0 Left 3 2 3 -- -- -- Sensory Light Touch Unable to assess Noxious Stimuli Withdraws to pain. Temperature Unable to assess. Pallesthesia Unable to assess. Cerebellar FNF FREEDOM HKS Right Unable to assess Unable to assess Unable to assess Left Unable to assess Unable to assess Unable to assess Gait Deferred Imaging: - Reviewed. No new imaging done in past 24 hours. - Patient on continuous EEG, will continue to review. Labs: Recent Labs Component Name 06/23/23 0719 06/22/23 0608 06/21/23 0557 WBC 8.9 9.3 7.8 RBC 3.78* 3.81* 3.81* HGB 12.1* 12.2* 12.2* HCT 36.3* 36.2* 36.2* Recent Labs Component Name 06/23/23 0719 06/22/23 1146 06/22/23 0608 NA 137 132* 137 CL 104 105 106 CO2 26 25 24 BUN 16 17 16 CREATININE 0.45* 0.50* 0.52* CALCIUM 9.3 9.0 9.1 Recent Labs Component Name 06/23/23 0719 06/22/23 0608 06/21/23 0557 MAGNESIUM 1.8 1.8 1.8 Recent Labs Component Name 06/09/23 1314 02/24/23 1032 12/31/22 2053 PT 13.5 14.1 13.7 INR 1.1 1.1 1.1 Recent Labs Component Name 08/29/22 0537 05/12/22 0314 01/01/22 0349 HGBA1C 4.4 4.4 5.6 EAG 80 80 114 Recent Labs Component Name 01/14/23 0935 01/02/23 0339 07/07/22 0345 04/11/15 0622 CHOL - - - 196 HDL - - - 81 LDLCALC - - - 102* TRIG 339* 736* 102 63 Recent Labs Component Name 06/09/23 1314 TSH 1.238 Recent Labs Component Name 01/02/23 1008 07/11/22 0040 07/01/22 1634 06/28/22 0141 06/27/22 2215 05/30/22 1750 CKTOTAL 51 49 42 - - - TROPONINI - - - <0.010 <0.010 <0.010 Assessment/Plan Bi Tabor is a 63 year old male with PMHx of epilepsy, chronic hypoxic respiratory failure s/p tracheostomy and PEG placement, HTN, HLD, previous stroke/vascular dementia who was brought to [facility] for altered mental status. He was found to have a UTI and pneumonia and has completed antibiotic courses for both infections. He is now having breakthrough seizures for which neurology was consulted for. #Breakthrough seizures; #Epilepsy - Current regimen: Keppra 2g BID, Vimpat 200mg BID, Valproic Acid 1g QID, Clobazam 20mg BID - Vimpat has not been taken since March 2023, and was not started upon admission to [facility]. Has since been restarted at home dose. - cEEG, continue to monitor. - Keppra level 47 on 06/21. Valproic acid level 65 on 06/23. - Load with Valproic acid 20mg/kg today. Increase dose to 1g QID. #Hyperkalemia - K at 4.7 on 06/23 - CTM, consider Lokelma if continuing to rise - Repeat BMP tomorrow (06/25) #Sepsis due to UTI, resolved; #MDR pneumonia, resolved - Completed course of Zebraxa and Vancomycin - ID followed, but has now signed off #HTN - Continue home Metoprolol tartrate 25mg BID - Continue home ASA #HLD - Continue home Lipitor 20mg qD #Nutrition - Tube feeds - Nutrition following #Chronic hypoxic respiratory failure s/p trach and PEG - Continue trach collar - Increased frequency of suctioning - Breathing treatment today Patient seen and discussed with attending physician, Dr. Peterson. Mira Wiley, MS3 Neurology [employer] * Susan De Paz RN - 06/23/2023 5:32 PM CST Problem: Nutrient: Inadequate protein-energy intake Goal: Total intake will meet estimated nutrient needs Outcome: Progressing Problem: Fall Risk Goal: Fall risk and [...] is maintained or improved Outcome: Progressing Problem: Safety related to restraint use Goal: Absence of injury while restrained Outcome: Progressing Problem: Impaired Gas Exchange Goal: Resp rate/effort will be within specified limits Outcome: Progressing Problem: Ineffective Airway Clearance Goal: Patent airway Outcome: Progressing [employer] * Lila Martinez RD/ONI - 06/23/2023 11:40 AM CST Clinical Nutrition Assessment Brief Synopsis: Patient is at Nutrition Risk; Specific criteria can be found in assessment below Nutrition Plan: + Continue NPO + TF (Peg tube) Osmolite 1.2 at 75 ml/hr. Provides 2160 kcals, 100 g Pro, 284 g carbohydrate, 1476 ml free water +50 ml q 6 hrs free water flush or per MD if on IVF +120 ml q 4 hrs free water flush or per MD if not on additional fluids TF considerations: 1. Start at 20ml/h and increase by 10ml/h q4h until goal 2. Do not hold unless residuals >500 as recommended by ASPEN. 3. For critical care, If residuals >200, monitor for symptoms of intolerance. 4. Signs of intolerance include: diarrhea, abdominal pain or distention. 5. Head of bed > 30?? Recommendations to Physician: Accurate current standing or bedscale wt- would help assess pt's nutrition status Comments: Pt scheduled for reassessment. Per documentation, no report of TF intolerance. Per charts, pt has had some loose stools, Last BM was 06/18. Will monitor pt's BMs, pt may benefit from stool softener to help with there bowel regimen. Pt has limited wt hx, a accurate current wt would help assess pt's nutrition status. Labs reviewed- K 4.7, Phos 2.6. No new nutrition interventions at this time. RD to follow. Assessment: Med/Surg History and Clinical Diagnoses: 63-year-old male with past medical history of epilepsy, chronic hypoxic respiratory failure status post trach, peg tube, hypertension, hyperlipidemia, previous stroke and vascular dementia who was brought to the hospital because of altered mental status Height: 177.8 cm (5' 10 ) Weight: 81.6 kg (180 lb) BMI: Body mass index is 25.83 kg/m??. BMI Range: Overweight IBW/lb (Calculated) Male: 166 , Recent Weights/Methods 01/14/2023 1900 01/14/2023 2000 01/14/2023 2100 01/14/2023 2200 02/23/2023 2144 02/25/2023 0900 06/09/2023 1127 06/18/2023 2349 Weight: -- -- -- -- 71.5 kg (157 lb 10.1 oz) 71.5 kg (157 lb 10.1 oz) 81.6 kg (180 lb) 81.6 kg (180lb) Weight Method : Bedscale Bedscale Bedscale Bedscale Stated -- Estimated Other (Comment) Wt Comments: Limited wt hx. Monitoring. Diet order accuracy Current diet order: NPO Current supplement order: None Nutritional Supplement at Discharge: N/A Current tube feeding order: Osmolite 1.2 @75mL/hr Nutrition recommendation: agree with current nutrition order P.O.Intake for the past 48 hrs: No data recorded Food Allergies: No known food allergies GI Concerns: None Chewing/Swallowing: (PEG tube dependent) Pain affecting intake: No Estimated Needs: KCAL: [id number] (25-30 kcal/kg ABW) Protein (g): 82-98g (1.0-1.2 g/kg ABW) Fluid (ml): 1 ml/kcal Needs based on: Kcal/kg- (Comment) (ABW of 81.6kg) Recommended Access Route: TF Laboratory values: Recent Labs Component Name 06/23/23 0719 06/22/23 1146 06/22/23 0608 06/21/23 0557 BUN 16 17 16 14 CREATININE 0.45* 0.50* 0.52* 0.52* NA 137 132* 137 138 POTASSIUM 4.7* 4.7* 5.0* 4.8* CL 104 105 106 105 CO2 26 25 24 23 GLUCOSE 109 126* 104 111 CALCIUM 9.3 9.0 9.1 9.3 PROT 7.1 - 7.2 7.2 ALB 2.7* - 2.7* 2.7* TBILI 0.2 - 0.2 0.3 ALKPHOS 104 - 91 94 ALT 25 - 28 29 AST 21 - 27 27 ANIONGAP 7 2* 7 10 BCR 36* 34* 31* 27* OSMOLALITY 286 277 285 287 AGRATIO 0.6* - 0.6* 0.6* EGFR >90 >90 >90 >90 Medications: Current Facility-Administered Medications Medication ??? 0.9% NaCl injection 3 mL And ??? 0.9% NaCl injection 1-10 mL ??? acetaminophen (Tylenol) tablet 1,000 mg ??? artificial tears ophthalmic ointment ??? aspirin chew tablet 81 mg ??? atorvastatin (Lipitor) tablet 40 mg ??? cloBAZam (Onfi) tablet 20 mg ??? famotidine (Pepcid) tablet 20 mg ??? guaiFENesin (Robitussin) solution 15 mL ??? heparin injection 5,000 Units ??? ibuprofen (Motrin) tablet 200 mg ??? lacosamide (Vimpat) tablet 200 mg ??? levETIRAcetam (Keppra) tablet 2,000 mg ??? metoprolol tartrate IR (Lopressor) tablet 25 mg ??? valproic acid (Depakene) solution 750 mg Skin/Wound: trach Nutrition Care Process (1) Nutrition Diagnostic Statement: Inadequate protein-energy intake related to:: decreased ability to consume or tolerate adequate food and/or fluids due to illness as evidenced by:: oral intake less than .. (No TF ordered currently) Nutrition Diagnostic Statement Progress: Nutrition problem continues Nutrition Intervention: Enteral nutrition: Monitoring: TF, BM, labs, meds, weight Evaluation: Nutrition Goal: Total intake will meet estimated nutrient needs Nutrition Goal Timeframe: Throughout stay Nutrition Goal Progress: Continue with current goal [id number] [employer] * Herminio Morrison DO - 06/23/2023 11:01 AM CST Neurology Progress Note Patient: Bi Tabor Age: [age] year old Admission Date and Time: 06/09/2023 Subjective Reason for consult/Chief Complaint: Break through seizures History of Presenting Illness: Bi Tabor is a 63 year old male w/ PMH of eliplepsy (L tempero-occipital lobes), CHRF s/p trach and PEG, HTN, HLD, PAD s/p L AKA, Hx of CVA's and vascular dementia who was admitted for acute encephalopathy. Patient found to have PNA as well as Pseudomonas UTI. Patient completed course w/ ceftolozane/tazobactam and vancomycin. Patient then found to have seizure on 06/20, neurology consulted. Patient loaded w/ vimpat 600mg and started on cEEG. Had additional seizure after vimpat load. Patient continued to have clinical and electrographic seizures, loaded w/ fosphenytoin and clobazam increased to 20 BID. Valproic acid increased to 750mg QID. Overnight: Patient continued to have multiple electrographic seizures overnight, however decreasing in frequency and most are brief <1min w/o clinical correlate. More alert then yesterday however still minimally interactive. Past Medical History No history on file. Past Medical History: Diagnosis Date ??? Cerebrovascular disease ??? HTN (hypertension) ??? Seizure (CMS-HCC) Past Surgical History: Procedure Laterality Date ??? ENDOSCOPY, UPPER N/A 03/25/2022 N/A; ESOPHAGOGASTRODUODENOSCOPY (EGD) DIAGNOSTIC with PEG Placement ??? ENT SURGERY N/A 07/15/2022 N/A; TRANSCERVICAL ZENKERS DIVERTICULECTOMY, OPEN TRACHEOSTOMY ??? 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 SINUS SURGERY N/A 11/26/2022 N/A; Bilateral Nasal Endoscopy, Right polypectomy, Right Maxillary Antrostomy, Rihjy Anterior Ethmoidectomy Allergies Allergies Allergen Reactions ??? Clonazepam Psychiatric hallucinations Family History FMHx: Family history has been reviewed and is non contributory Social History Social history has been reviewed and is non contributory to current case. Objective BP 111/71 Pulse 102 Temp 98.1 ??F (36.7 ??C) (Axillary) Resp 18 Ht 1.778 m (5' 10 ) Wt 81.6 kg (180 lb) SpO2 97% Temp (30hrs) Max:98.1 ??F (36.7 ??C) Body mass index is 25.83 kg/m??. Exam: General: Con - NAD, afebrile Heent - NCAT, MMM, anicteric Neck - No JVD, LAD, trachea midline CV - RRR for age, normal s1/s2, no m/r/g Pulm - CTAB, no w/r/r Abd - BS+, soft, NTND Ext: No c/c/e, 2+ dpp, normal ROM Cortical Function Mental Status Will withdraw to painful stimuli, opens eyes to name Orientation AxOx0 Language Unable to determine Visual Ivan Unable to determine Neglect Unable [...] Motor Function Movement No abnormalities noted Bulk No abnormalities noted Tone No abnormalities noted Muscle Stretch Reflexes BI TRI BR PAT ACH TOES Right 3 2 3 0 0 Left 3 2 3 Sensory Light Touch Unable to determine Noxious Stimuli withdraws Temperature Not tested Pallesthesia Not tested Cerebellar FNF FREEDOM HKS Right Intact Deferred Deferred Left Intact Deferred Deferred Gait Deferred Labs: Results for orders placed or performed during the hospital encounter of 06/09/23 (from the past 24 hour(s)) BASIC METABOLIC PANEL (CALCIUM TOTAL) Result Value Ref Range BUN 17 7 - 26 mg/dL Creatinine 0.50 (L) 0.71 - 1.16 mg/dL Sodium 132 (L) 136 - 145 mmol/L Potassium 4.7 (H) 3.5 - 4.5 mmol/L Chloride 105 98 - 107 mmol/L CO2 25 22 - 29 mmol/L Glucose 126 (H) 70 - 115 mg/dL Calcium 9.0 8.4 - 10.2 mg/dL Anion Gap 2 (L) 6 - 16 BUN/Creatinine Ratio 34 (H) 7 - 23 Osmolality Calculated 277 275 - 295 mOsm/kg eGFR by CKD-EPI >90 >=90 mL/min/1.73 m2 CBC W AUTO DIFFERENTIAL Result Value Ref Range WBC 8.9 4.0 - 10.7 x10E9/L RBC Count 3.78 (L) 4.30 - 5.80 x10E12/L Hemoglobin 12.1 (L) 13.3 - 17.5 g/dL Hematocrit 36.3 (L) 38.7 - 51.1 % MCV 96.0 80.0 - 98.0 fL MCH 32.0 26.7 - 33.6 pg MCHC 33.3 31.7 - 36.3 g/dL RDW-CV 15.0 (H) 11.3 - 14.8 % Platelet Count 299 150 - 420 x10E9/L MPV 11.8 (H) 7.8 - 11.4 fL Neutrophil % 43.4 41.0 - 74.0 % Lymphocyte % 40.1 17.0 - 47.0 % Monocyte % 12.0 (H) 3.0 - 11.0 % Eosinophil % 3.1 0.0 - 7.0 % Basophil % 0.4 0.0 - 1.6 % Immature Granulocytes % 1.0 0.0 - 1.0 % Neutrophil Absolute 3.85 1.60 - 7.50 x10E9/L Lymphocyte Absolute 3.57 1.00 - 4.40 x10E9/L Monocyte Absolute 1.07 (H) 0.15 - 1.00 x10E9/L Eosinophil Absolute 0.28 0.00 - 0.60 x10E9/L Basophil Absolute 0.04 0.00 - 0.13 x10E9/L NRBC 0.6 (H) <=0.0 /100 WBC COMPREHENSIVE METABOLIC PANEL Result Value Ref Range BUN 16 7 - 26 mg/dL Creatinine 0.45 (L) 0.71 - 1.16 mg/dL Sodium 137 136 - 145 mmol/L Potassium 4.7 (H) 3.5 - 4.5 mmol/L Chloride 104 98 - 107 mmol/L CO2 26 22 - 29 mmol/L Glucose 109 70 - 115 mg/dL Calcium 9.3 8.4 - 10.2 mg/dL Protein Total 7.1 6.0 - 8.3 g/dL Albumin 2.7 (L) 3.4 - 5.0 g/dL Bilirubin Total 0.2 0.2 - 1.2 mg/dL Alkaline Phosphatase 104 40 - 150 U/L ALT 25 5 - 55 U/L AST 21 5 - 34 U/L Anion Gap 7 6 - 16 BUN/Creatinine Ratio 36 (H) 7 - 23 Osmolality Calculated 286 275 - 295 mOsm/kg Albumin/Globulin Ratio 0.6 (L) 1.1 - 2.3 eGFR by CKD-EPI >90 >=90 mL/min/1.73 m2 MAGNESIUM BLOOD Result Value Ref Range Magnesium 1.8 1.6 - 2.6 mg/dL PHOSPHORUS BLOOD Result Value Ref Range Phosphorus 2.6 (L) 2.8 - 5.1 mg/dL Neuroimaging: Reviewed Assessment and Plan: #Breakthrough seizures #Epilepsy #Encephalopathy -Patient home regimen: keppra 2g BID, vimpat 200mg BID, valproic acid 500mg QID, clobazam 10mg AM and 15mg PM. -Patient vimpat was not started -s/p vimpat load w/ 600mg on 06/20 -s/p fosphenytoin load 06/21 -Last valproic acid level 65 on 06/22/23 PLAN -cEEG -Cont lobazam to 20mg BID, valproic acid 750mg BID, vimpat 200mg BID, keppra 2g BID -Repeat valproic acid level, prior to noon dose today #Hyperkalemia, improving -K slowly increasing since admission, 5->4.7 -potentially from dehydration vs TF -CTM, may consider lokelma if continues to rise #Sepsis 2/2 UTI, resolved #MDR Pneumonia, resolved -Patient completed course of Zebraxa and vanc -ID was following, now s/o #HTN #HLD -Cont metoprolol tartrate 25mg BID and lipitor 40mg qday, ASA #Nutrition -TF -Nutrition following #Chronic hypoxic respiratory failure s/p trach and PEG -Cont trach collar Discussed with General Neurology Attending Physician, Dr. Kristen Morrison, DO Internal Medicine, PGY-3 Pager [phone] 06/23/2023 11:01 AM [employer] Associated attestation - Olga Peterson MD - 06/23/2023 7:26 PM PROFESSOR OF SPORT MANAGEMENT I have seen and examined the patient with the resident and I agree with the findings and plan of care as documented by the resident. Date of Service: 06-23-23. Olga Peterson MD * Mira Wiley - 06/23/2023 7:09 AM CST *This is a student note, primarily for learning purposes.* General Neurology Progress Note Bi Tabor Age: [age] year old Date of : 1960 Date of Admission: 06/09/2023 Hospital Day: 14 Subjective Hospital Course: Bi Tabor is a 63 year old male with PMHx of epilepsy, chronic hypoxic respiratory failure s/p tracheostomy and PEG placement, HTN, HLD, previous stroke/vascular dementia brought to [facility] for altered mental status. He was also being treated for pneumonia and UTI. Completed a course of Ceftolozane/ Tazobactam and Vancomycin and has since improved. Requires frequent suctioning to maintain target SpO2 level. On 06/20, patient had 3 seizure events within 30 minutes, each lasting 1-2 minutes that involved R facial twitching and eye deviation to the L side. Patient was sleepy and staring after the episodes. Per patient's epileptologist, his anti-seizure regimen is as follows: Lacosamide 200mg BID, Leviteracetam 2000mg BID, Valproic acid 500mg QID, Clobazam 10mg in AM and 15mg in PM. [facility] has not been giving Lacosamide since March 2023. Lacosamide restarted on 06/20 with a 400mg load and further initiation of 200mg BID. Continuous EEG initiated on 06/20 as well. 06/21 patient loaded with fosphenytoin and Clobazam increased to 20 BID. 06/22 decreased seizures after fosphenytoin load, however still having multiple electrographic seizures. Interval History: Appears well today, keeps his eyes open and attempting to say Bi when asked what his name is. Continuing to have seizures. Per epileptologist, recommended not to make med changes today and continueto monitor EEG/clinical picture. Objective Patient Vitals for the past 24 hrs: BP Temp Temp src Pulse Resp SpO2 06/23/23 0029 111/71 98.1 ??F (36.7 ??C) Axillary 86 18 96 % 06/23/23 0000 -- -- -- 93 -- 97 % 06/22/23 2114 127/74 -- -- 92 -- -- 06/22/23 1510 -- -- -- 91 -- 97 % 06/22/23 1310 -- -- -- 88 -- 98 % 06/22/23 1102 123/82 -- -- 100 -- 97 % 06/22/23 1001 -- -- -- 91 -- 90 % Intake/Output Summary (Last 24 hours) at 06/23/2023 0709 Last data filed at 06/23/2023 0635 Gross per 24 hour Intake 2282 ml Output 650 ml Net 1632 ml Exam: Physical exam severely limited due to patient's mental status. Cortical Function Mental Status Asleep, increasingly alert, unable to follow commands, opens eyes to tactile/verbal stimulation, grimaces to painful stimuli Orientation Unable to assess Language Unable to assess Visual Ivan Unable to assess Neglect Unable to assess Cranial Nerves II Pupils 3 mm and bilaterally reactive to light. Fundoscopic exam not performed. VIII Unable to assess. III/IV/ Extraocular muscles appear to be intact. Appears to have right gaze preference. IX/X Unable to assess. V Unable to assess. XI Unable to assess. VII Unable to assess. XII Unable to assess. Motor Function Movement Moving bilateral UE spontaneously. No abnormal movements noted. Bulk Normal bulk. Tone Spasticity present in bilateral UE. Proximal Upper Distal Upper Proximal Lower Distal Lower Right 4+ 4+ Left 4+ 4+ -- Palmar grasp reflex in the R hand, good strength, does not release when asked to. Muscle Stretch Reflexes BI TRI BR PAT ACH TOES Right 3 2 3 0 0 Left 3 2 3 -- -- -- Sensory Light Touch Unable to assess Noxious Stimuli Withdraws to pain. Temperature Unable to assess. Pallesthesia Unable to assess. Cerebellar FNF FREEDOM HKS Right Unable to assess Unable to assess Unable to assess Left Unable to assess Unable to assess Unable to assess Gait Deferred Imaging: - Reviewed. No new imaging done in past 24 hours. - Patient on continuous EEG, will continue to review. Labs: Recent Labs Component Name 06/22/23 0608 06/21/23 0557 06/20/23 0546 WBC 9.3 7.8 8.3 RBC 3.81* 3.81* 3.77* HGB 12.2* 12.2* 12.1* HCT 36.2* 36.2* 35.9* Recent Labs Component Name 06/22/23 1146 06/22/23 0608 06/21/23 0557 NA 132* 137 138 CL 105 106 105 CO2 BUN 17 16 14 CREATININE 0.50* 0.52* 0.52* CALCIUM 9.0 9.1 9.3 Recent Labs Component Name 06/22/23 0608 06/21/23 0557 06/20/23 0546 MAGNESIUM 1.8 1.8 1.9 Recent Labs Component Name 06/09/23 1314 02/24/23 1032 12/31/22 2053 PT 13.5 14.1 13.7 INR 1.1 1.1 1.1 Recent Labs Component Name 08/29/22 0537 05/12/22 0314 01/01/22 0349 HGBA1C 4.4 4.4 5.6 EAG 80 80 114 Recent Labs Component Name 01/14/23 0935 01/02/23 0339 07/07/22 0345 04/11/15 0622 CHOL - - - 196 HDL - - - 81 LDLCALC - - - 102* TRIG 339* 736* 102 63 Recent Labs Component Name 06/09/23 1314 TSH 1.238 Recent Labs Component Name 01/02/23 1008 07/11/22 0040 07/01/22 1634 06/28/22 0141 06/27/22 2215 05/30/22 1750 CKTOTAL 51 49 42 - - - TROPONINI - - - <0.010 <0.010 <0.010 Assessment/Plan Bi Tabor is a 63 year old male with PMHx of epilepsy, chronic hypoxic respiratory failure s/p tracheostomy and PEG placement, HTN, HLD, previous stroke/vascular dementia who was brought to [facility] for altered mental status. He was found to have a UTI and pneumonia and has completed antibiotic courses for both infections. He is now having breakthrough seizures for which neurology was consulted for. #Breakthrough seizures; #Epilepsy - Current regimen: Keppra 2g BID, Vimpat 200mg BID, Valproic Acid 750mg QID, Clobazam 20mg BID - Vimpat has not been taken since March 2023, and was not started upon admission to [facility]. Has since been restarted at home dose. - cEEG, continue to monitor. - Valproic acid level 53, Keppra level 47 on 06/21 - Clobazam dose increased to 20mg BID (from 10mg AM and 15mg PM). - Vimpat load 600mg on 06/20, Fosphenytoin load on 06/21 #Hyperkalemia - K slowly increasing since admission, 5.0 on 06/22, 4.7 later in the day. - CTM, consider Lokelma if continuing to rise - Repeat BMP tomorrow (06/24) #Sepsis due to UTI, resolved; #MDR pneumonia, resolved - Completed course of Zebraxa and Vancomycin - ID followed, but has now signed off #HTN - Continue home Metoprolol tartrate 25mg BID - Continue home ASA #HLD - Continue home Lipitor 20mg qD #Nutrition - Tube feeds - Nutrition following #Chronic hypoxic respiratory failure s/p trach and PEG - Continue trach collar Patient seen and discussed with attending physician, Dr. Peterson. Mira Wiley, MS3 Neurology [employer] * China Rizzo, RN - 06/23/2023 6:50 AM CST Problem: Fall Risk Goal: Fall risk and [...] is maintained or improved Outcome: Progressing Problem: Safety related to restraint use Goal: Absence of injury while restrained Outcome: Progressing Problem: Impaired Gas Exchange Goal: Resp rate/effort will be within specified limits Outcome: Progressing Problem: Ineffective Airway Clearance Goal: Patent airway Outcome: Progressing [employer]NAGEMENT * Gaurav Juarez INTERVENTIONAL PAIN PHYSICIAN - 06/22/2023 2:49 PM CST Care Coordination Progress Note Anticipated level of care at discharge: [facility] - Skilled Facility: Anticipated level of care provider: [facility] ([facility] and [facility]): Anticipated Discharge Date: 06/24/23: Discharge Plan: SW following for this pt to return to SNF when medically ready. Orientation Level: Unable to Obtain: Family Support (Name and Phone): Extended Emergency Contact Information Primary Emergency Contact: Adriane Hilliard Mobile Relation: Sister Tray Drier needed? No Secondary Emergency Contact: Shant Taborger [facility] Relation: Brother Transportation at Discharge: Ambulance: READMISSION RISK SCORE is 22 at 2:49 PM 06/22/2023.: Name: CLARITA Ram [employer]NAGEMENT * Herminio Morrison, - 06/22/2023 7:38 AM CST Neurology Progress Note Patient: Bi Tabor Age: [age] year old Admission Date and Time: 06/09/2023 Subjective Reason for consult/Chief Complaint: Break through seizures History of Presenting Illness: Bi Tabor is a 63 year old male w/ PMH of eliplepsy (L tempero-occipital lobes), CHRF s/p trach and PEG, HTN, HLD, PAD s/p L AKA, Hx of CVA's and vascular dementia who was admitted for acute encephalopathy. Patient found to have PNA as well as Pseudomonas UTI. Patient completed course w/ ceftolozane/tazobactam and vancomycin. Patient then found to have seizure on 06/20, neurology consulted. Patient loaded w/ vimpat 600mg and started on cEEG. Had additional seizure after vimpat load. Patient continued to have clinical and electrographic seizures, loaded w/ fosphenytoin and clobazam increased to 20 BID. Overnight: Patient continued to have multiple electrographic seizures overnight, reduced after fosphenytoin load, however still present. Past Medical History No history on file. Past Medical History: Diagnosis Date ??? Cerebrovascular disease ??? HTN (hypertension) ??? Seizure (CMS-HCC) Past Surgical History: Procedure Laterality Date ??? ENDOSCOPY, UPPER N/A 03/25/2022 N/A; ESOPHAGOGASTRODUODENOSCOPY (EGD) DIAGNOSTIC with PEG Placement ??? ENT SURGERY N/A 07/15/2022 N/A; TRANSCERVICAL ZENKERS DIVERTICULECTOMY, OPEN TRACHEOSTOMY ??? 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 SINUS SURGERY N/A 11/26/2022 N/A; Bilateral Nasal Endoscopy, Right polypectomy, Right Maxillary Antrostomy, Rihjy Anterior Ethmoidectomy Allergies Allergies Allergen Reactions ??? Clonazepam Psychiatric hallucinations Family History FMHx: Family history has been reviewed and is non contributory Social History Social history has been reviewed and is non contributory to current case. Objective BP 101/64 Pulse 91 Temp 98.9 ??F (37.2 ??C) Resp 20 Ht 1.778 m (5' 10 ) Wt 81.6 kg (180 lb) SpO2 97% Temp (30hrs) Max:99.2 ??F (37.3 ??C) Body mass index is 25.83 kg/m??. Exam: General: Con - NAD, afebrile Heent - NCAT, MMM, anicteric Neck - No JVD, LAD, trachea midline CV - RRR for age, normal s1/s2, no m/r/g Pulm - CTAB, no w/r/r Abd - BS+, soft, NTND Ext: No c/c/e, 2+ dpp, normal ROM Cortical Function Mental Status Will withdraw to painful stimuli, opens eyes to name Orientation AxOx0 Language Unable to determine Visual Ivan Unable to determine Neglect Unable [...] Motor Function Movement No abnormalities noted Bulk No abnormalities noted Tone No abnormalities noted Muscle Stretch Reflexes BI TRI BR PAT ACH TOES Right 3 2 3 0 0 Left 3 2 3 Sensory Light Touch Unable to determine Noxious Stimuli withdraws Temperature Not tested Pallesthesia Not tested Cerebellar FNF FREEDOM HKS Right Intact Deferred Deferred Left Intact Deferred Deferred Gait Deferred Labs: Results for orders placed or performed during the hospital encounter of 06/09/23 (from the past 24 hour(s)) COMPREHENSIVE METABOLIC PANEL Result Value Ref Range BUN 16 7 - 26 mg/dL Creatinine 0.52 (L) 0.71 - 1.16 mg/dL Sodium 137 136 - 145 mmol/L Potassium 5.0 (H) 3.5 - 4.5 mmol/L Chloride 106 98 - 107 mmol/L CO2 24 22 - 29 mmol/L Glucose 104 70 - 115 mg/dL Calcium 9.1 8.4 - 10.2 mg/dL Protein Total 7.2 6.0 - 8.3 g/dL Albumin 2.7 (L) 3.4 - 5.0 g/dL Bilirubin Total 0.2 0.2 - 1.2 mg/dL Alkaline Phosphatase 91 40 - 150 U/L ALT 28 5 - 55 U/L AST 27 5 - 34 U/L Anion Gap 7 6 - 16 BUN/Creatinine Ratio 31 (H) 7 - 23 Osmolality Calculated 285 275 - 295 mOsm/kg Albumin/Globulin Ratio 0.6 (L) 1.1 - 2.3 eGFR by CKD-EPI >90 >=90 mL/min/1.73 m2 MAGNESIUM BLOOD Result Value Ref Range Magnesium 1.8 1.6 - 2.6 mg/dL PHOSPHORUS BLOOD Result Value Ref Range Phosphorus 2.7 (L) 2.8 - 5.1 mg/dL Neuroimaging: Reviewed Assessment and Plan: #Breakthrough seizures #Epilepsy #Encephalopathy -Patient home regimen: keppra 2g BID, vimpat 200mg BID, valproic acid 500mg QID, clobazam 10mg AM and 15mg PM. -Patient vimpat was not started -s/p vimpat load w/ 600mg on 06/20 -s/p fosphenytoin load 06/21 -Last valproic acid level 53 on 06/21/23 PLAN -cEEG -Increase clobazam to 20mg BID -Cont home AED meds as above -Repeat valproic acid level #Hyperkalemia -K slowly increasing since admission, now 5.0 -potentially from dehydration vs TF -CTM, may consider lokelma if continues to rise -Repeat BMP today #Sepsis 2/2 UTI, resolved #MDR Pneumonia, resolved -Patient completed course of Zebraxa and vanc -ID was following, now s/o #HTN #HLD -Cont metoprolol tartrate 25mg BID and lipitor 40mg qday, ASA #Nutrition -TF -Nutrition following #Chronic hypoxic respiratory failure s/p trach and PEG -Cont trach collar Discussed with General Neurology Attending Physician, Dr. Kristen Morrison, DO Internal Medicine, PGY-3 Pager [phone] 06/22/2023 7:38 AM [employer] Associated attestation - Olga Peterson MD - 06/22/2023 2:38 PM PROFESSOR OF SPORT MANAGEMENT I have seen and examined the patient with the resident and I agree with the findings and plan of care as documented by the resident. Date of Service: 06-22-23. Olga Peterson MD * Mira Wiley - 06/22/2023 7:12 AM CST *This is a student note, primarily for learning purposes.* General Neurology Progress Note Bi Tabor Age: [age] year old Date of : 1960 Date of Admission: 06/09/2023 Hospital Day: 13 Subjective Hospital Course: Bi Tabor is a 63 year old male with PMHx of epilepsy, chronic hypoxic respiratory failure s/p tracheostomy and PEG placement, HTN, HLD, previous stroke/vascular dementia brought to [facility] for altered mental status. He is also being treated for pneumonia and UTI. Completed a course of Ceftolozane/T azobactam and Vancomycin and has improved. Requires frequent suctioning to maintain target SpO2 level. On 06/20, patient had 3 seizure events within 30 minutes, each lasting 1-2 minutes that involved R facial twitching and eye deviation to the L side. Patient was sleepy and staring after the episodes. Per patient's epileptologist, his anti-seizure regimen is as follows: Lacosamide 200mg BID, Leviteracetam 2000mg BID, Valproic acid 500mg QID, Clobazam 10mg in AM and 15mg in PM. [facility] has not been giving Lacosamide since March 2023. Lacosamide restarted on 06/20 with a 400mg load and further initiation of 200mg BID. Continuous EEG initiated on 06/20 as well. Interval History: Patient continuing to have seizure activity. Given Fosphenytoin load 20mg/kg yesterday in the evening. Is having around 6 seizures per hour now, decreased from 12 per hour last night. Objective Patient Vitals for the past 24 hrs: BP Temp Pulse Resp SpO2 06/22/23 0615 -- -- -- -- 97 % 06/22/23 0257 -- -- -- -- 95 % 06/22/23 0019 -- -- -- -- 97 % 06/21/23 2344 101/64 98.9 ??F (37.2 ??C) 91 20 97 % 06/21/23 2134 120/83 -- 100 -- -- 06/21/232 -- -- -- -- 96 % 06/21/23 1506 147/80 97.9 ??F (36.6 ??C) 80 16 98 % Intake/Output Summary (Last 24 hours) at 06/22/2023 0712 Last data filed at 06/22/2023 0605 Gross per 24 hour Intake 2097 ml Output 1825 ml Net 272 ml Exam: Physical exam severely limited due to lack of patient participation/ability to respond to questioning and follow instruction. Cortical Function Mental Status Asleep, alert, unable to follow commands, opens eyes to tactile/verbal stimulation, grimaces to painful stimuli Orientation Unable to assess Language Unable to assess Visual Ivan Unable to assess Neglect Unable to assess Cranial Nerves II Pupils 3 mm and bilaterally reactive to light. Fundoscopic exam not performed. VIII Unable to assess. III/IV/ Extraocular muscles appear to be intact. IX/X Unable to assess. V Unable to assess. XI Unable to assess. VII Unable to assess. XII Unable to assess. Motor Function Movement Moving bilateral UE spontaneously. No abnormal movements noted. Bulk Normal bulk. Tone Spasticity present in bilateral UE. Proximal Upper Distal Upper Proximal Lower Distal Lower Right 4+ 4+ Left 4+ 4+ -- Muscle Stretch Reflexes BI TRI BR PAT ACH TOES Right 3 2 3 0 0 Left 3 2 3 -- -- -- Sensory Light Touch Unable to assess Noxious Stimuli Withdraws to pain. Temperature Unable to assess. Pallesthesia Unable to assess. Cerebellar FNF FREEDOM HKS Right Unable to assess Unable to assess Unable to assess Left Unable to assess Unable to assess Unable to assess Gait Deferred Imaging: - Reviewed. No new imaging done since yesterday. - Patient on continuous EEG, will continue to review. Labs: Recent Labs Component Name 06/21/23 0557 06/20/23 0546 06/19/23 1157 WBC 7.8 8.3 8.9 RBC 3.81* 3.77* 3.69* HGB 12.2* 12.1* 11.7* HCT 36.2* 35.9* 34.7* Recent Labs Component Name 06/21/23 0557 06/20/23 0546 06/19/23 1157 NA 138 138 140 CL 105 107 108* CO2 23 26 26 BUN 14 13 12 CREATININE 0.52* 0.51* 0.50* CALCIUM 9.3 9.6 9.5 Recent Labs Component Name 06/21/23 0557 06/20/23 0546 06/19/23 1157 MAGNESIUM 1.8 1.9 1.9 Recent Labs Component Name 06/09/23 1314 02/24/23 1032 12/31/22 2053 PT 13.5 14.1 13.7 INR 1.1 1.1 1.1 Recent Labs Component Name 08/29/22 0537 05/12/22 0314 01/01/22 0349 HGBA1C 4.4 4.4 5.6 EAG 80 80 114 Recent Labs Component Name 01/14/23 0935 01/02/23 0339 07/07/22 0345 04/11/15 0622 CHOL - - - 196 HDL - - - 81 LDLCALC - - - 102* TRIG 339* 736* 102 63 Recent Labs Component Name 06/09/23 1314 TSH 1.238 Recent Labs Component Name 01/02/23 1008 07/11/22 0040 07/01/22 1634 06/28/22 0141 06/27/22 2215 05/30/22 1750 CKTOTAL 51 49 42 - - - TROPONINI - - - <0.010 <0.010 <0.010 Assessment/Plan Bi Tabor is a 63 year old male with PMHx of epilepsy, chronic hypoxic respiratory failure s/p tracheostomy and PEG placement, HTN, HLD, previous stroke/vascular dementia who was brought to [facility] for altered mental status. He was found to have a UTI and pneumonia and has completed antibiotic courses for both infections. He is now having breakthrough seizures for which neurology was consulted for. #Breakthrough seizures, #Epilepsy - Current regimen: Keppra 2g BID, Vimpat 200mg BID, Valproic Acid 750mg QID, Clobazam 20mg BID - Vimpat has not been taken since March 2023, and was not started upon admission to [facility]. Has since been restarted at home dose. - Clobazam 20mg given 06/21 8pm. Start Clobazam 20mg BID. - cEEG, continue to monitor. - Re-check kidney function to w/u hyperkalemia. - Obtain valproic acid level. Patient seen and discussed with attending physician, Dr. Peterson. Mira Wiley, MS3 Neurology [employer] * China Rizzo RN - 06/22/2023 5:38 AM CST Problem: Fall Risk Goal: Fall risk and [...] is maintained or improved Outcome: Progressing Problem: Safety related to restraint use Goal: Absence of injury while restrained Outcome: Progressing Problem: Impaired Gas Exchange Goal: Resp rate/effort will be within specified limits Outcome: Progressing Problem: Ineffective Airway Clearance Goal: Patent airway Outcome: Progressing [employer] MANAGEMENT * Bhavesh Phillips MD - 06/21/2023 7:43 PM CST Contacted by neurology as patient showed another episode of likely seizure on EEG. Per neurology, plan is to start loading dose of fosphenytoin 20 mg/kg beginning this evening, will follow up with them to determine maintenance dose moving forward. [employer]NAGEMENT * Jennie Fernandes MD - 06/21/2023 3:21 PM CST [facility] INTERNAL MEDICINE PROGRESS NOTE Patient: Bi Tabor Sex: male Age: [age] year old Date of : 1960 Date of Admission: 06/09/2023 Date: 06/21/2023 LOS: 12 SUBJECTIVE Interval History: Patient is in status epilepticus, not back to baseline, sleepy. Hospital Course: Mr. Pat is a 63 year old gentleman??with PMH of epilepsy post (left tempero occipital lobes), chronic hypoxic respiratory failure s/p tracheostomy and PEG placement, HTN, HLD, PAD s/p L AKA previousCVAs and vascular dementia. He was admitted??for acute encephalopathy and being treated for PNA andalso positive Urine culture for pseudomonas. Previous sputum cx with pseudomonas MDRO. Completed??ceftolozane/tazobacta??(sensitive)??and ??Vancomycin as??MRSA PCR positive course and improved.??Patient requires frequent suctioning to maintain target saturation.?? On 06/20 he had seizures (twitching in right side of the face with left gaze deviation), not responsive during the events had 3 consecutive events lasted 1-2 min within 30 min all of them. Afterwards he is sleepy and not back to baseline. Loaded with 600 Vimpat IV once and connected to EEG. Vimpat maintenance dose added and clobazam increased to 15 BID. After reviewing chart, contacting nursing facility and family, medications are not given as prescribed. CT head no acute events. OBJECTIVE Vital Signs: Vitals: 06/20/23 2322 06/21/23 0056 06/21/23 0407 06/21/23 1506 BP: 115/68 120/90 147/80 Pulse: 81 93 80 Resp: 18 16 Temp: 98.9 ??F (37.2 ??C) 99.2 ??F (37.3 ??C) 97.9 ??F (36.6 ??C) SpO2: 95% 93% 95% 98% Weight: Height: Temp Min: 96.6 ??F (35.9 ??C) Max: 102.6 ??F (39.2 ??C), Pulse Min: 67 Max: 126, Resp Min: 9 Max: 31, BP Min: 105/67 Max: 169/82 Intake & Output: In: 1986 Out: 2550 [Urine:2550] Physical Exam: Patient has EEG connected. Sleepy, opens eyes to verbal stimuli and follow up simple commands intermittently (sequeezed my fingers with his right hand only) but not answering questions. His baseline is awake and alert, follows command, oriented to self and answers questions appropriately and he knows his family members. Current Medications: Scheduled: ??? 0.9% NaCl 3 mL Intracatheter q8h ??? acetaminophen 1,000 mg Enteral Tube TID ??? artificial tears Each Eye q8h ??? aspirin 81 mg Enteral Tube QDAY ??? atorvastatin 40 mg Enteral Tube AT BEDTIME ??? [START ON 06/22/2023] cloBAZam 15 mg Enteral Tube QAM And ??? cloBAZam 15 mg Enteral Tube QPM ??? famotidine 20 mg Enteral Tube BID ??? guaiFENesin 15 mL Enteral Tube Every 6 Hours (03,09,15,21) ??? heparin 5,000 Units Subcutaneous q8h ??? lacosamide 200 mg Per G Tube BID ??? levETIRAcetam 2,000 mg Enteral Tube BID ??? metoprolol tartrate IR 25 mg Enteral Tube BID ??? valproic acid 500 mg Per G Tube 4X/day Continuous: PRN: ??? SALINE LOCK, INSERT AND MAINTAIN AND 0.9% NaCl AND 0.9% NaCl ??? ibuprofen Significant Lab Results: Reviewed. Microbiology: None. Imaging & Studies: Reviewed. ASSESSMENT & PLAN Sepsis due to pneumonia (CMS-HCC) (POA: Yes) History of CVA (cerebrovascular accident) (POA: Yes) Essential (primary) hypertension (POA: Yes) Severe protein-calorie malnutrition (CMS-HCC) (POA: Yes) Chronic respiratory failure with hypoxia (CMS-HCC) (POA: Yes) Pleural effusion (POA: Yes) Elevated lactic acid level (POA: Yes) Mr. Sharona Pat is a 63 year old gentleman with PMH of HTN, Epilepsy presented with acute encephalopathy being managed for Pneumonia and possible UTI??due to pseudomonas??(MDR). Hospital course complicated with breakthrough seizure. ? O Breakthrough seizures: status epilepticus. O AMS - Patient has focal seizures on 06/20: right side face twitching, left gaze deviation. > Given Ativan 2mg Once > AEDs levels ordered. - Has epilepsy following stroke, refractory requiring four medications. - Neurology team reached out to his epileptologist and patient was supposed to be taking the following medications Lacosamide (Vimpat) 200 mg BID/ Levetiracetam 2000 mg BID/ Valproid Acid 500 mg QID / Clobazam 10 mg AM and 15 mg PM. - Patient was not given Vimpat in the facility since 03/2023. - CT head without acute events. - Patient not back to baseline. - Loaded with Vimpat 600 IV once and then 200 mg BID for maintenance. - cEEG attached: abnormal. - Neurology team following. - Clobazam increased to 20 mg BID. - Patient was on higher dose of Clobazam before but reduced due to side effects (sleepy) and was doing well before admission, the main concern that he was not given Vimpat since 04/21 even though he was supposed to be on it as per epileptologist. -Seizure precautions. ?? O??Sepsis due to UTI vs pneumonia?? - resolved. O Pneumonia: MDR pseudomonas + MRSA -Urinalysis positive for bacteria and urine culture grew pseudomonas.?? -Blood cultures were positive for gram positive cocci. Repeat blood cultures ordered. Sputum cultures and repeat urine cultures pending. -Pt has history of multiple MDR Pseudomonas infections -Continue vancomycin and ceftolozane/tazobactam?? -Infectious disease??following?? - Gram stain and culture of tracheal secretion.?? - UA and urine culture (from straight cath).?? - Blood cultures??06/13: Pending. - Previous ABx: ?Ceftraizone 1 g OD (06/09-06/10) - Current ABx: Zebraxa (Ceftolozane- Tazobactam) 3 g Q 8h (Start date 06/11) ??, Vancomycin 1,5 g Q12 hour (Start date 06.13) - Completed.? O??Chronic??Headache:?? - Having headache. - Tylenol 1g TID scheduled.?? - Depakote aids in headache prevention as preventive medication.? O??HTN -Continue Lopressor??25 mg BID.? O??HLD -Continue Lipitor??40mg OD .? Code:??Full.?? Diet:??PEGTube feeding?? Electrolytes:??Replete PRN PPx:??Heparin?? Access:PIV, trach tube, Jensen, GJ tube.?? Dispo:Medicine.? Anticipated level of care at discharge: [facility] - Skilled Facility. The above assessment and plan will be discussed with the attending. This note is not final until attested by attending physician. Jennie Fernandes MD Neurology Resident [facility] 06/21/2023 3:21 PM [employer] Associated attestation - Norma Briones MD - 06/21/2023 7:50 PM PROFESSOR OF SP[employer] MANAGEMENT I have seen and examined the patient with the resident and I agree with the findings and plan of care as documented by the resident. In addition: Remains in status, doesn't respond as usual (baseline, could converse, although words come out slowly) Case d/w neurology, appreciate rec Continue EEG Date of Service: 06/21/2023 Norma Briones MD READMISSION RISK SCORE is 21 at 7:49 PM 06/21/2023. * Clover Crowley RN - 06/21/2023 1:14 PM CST Care Coordination Progress Note Anticipated level of care at discharge: [facility] - Skilled Facility: Anticipated level of care provider: [facility] (formerly [facility] and [facility]): Anticipated Discharge Date: 06/24/23: Discharge Plan: Return to SNF. following for placement. Orientation Level: Unable to Obtain: Family Support (Name and Phone): Extended Emergency Contact Information Primary Emergency Contact: Adriane Hilliard Mobile Relation: Sister Tray Drier needed? No Secondary Emergency Contact: Amarjit Tabor [facility] Relation: Brother Transportation at Discharge: Ambulance: READMISSION RISK SCORE is 21 at 1:14 PM 06/21/2023.: Name: Clover Crowley RN Case Manager [phone] [employer] * Mira Wiley - 06/21/2023 8:08 AM CST General Neurology Progress Note Bi Tabor Age: [age] year old Date of : 1960 Date of Admission: 06/09/2023 Hospital Day: 12 Subjective Hospital Course: Bi Tabor is a 63 year old male with PMHx of epilepsy, chronic hypoxic respiratory failure s/p tracheostomy and PEG placement, HTN, HLD, previous stroke/vascular dementia brought to [facility] for altered mental status. He is also being treated for pneumonia and UTI. Completed a course of Ceftolozane/T azobactam and Vancomycin and has improved. Requires frequent suctioning to maintain target SpO2 level. On 06/20, patient had 3 seizure events within 30 minutes, each lasting 1-2 minutes that involved R facial twitching and eye deviation to the L side. Patient was sleepy and staring after the episodes. Per patient's epileptologist, his anti-seizure regimen is as follows: Lacosamide 200mg BID, Leviteracetam 2000mg BID, Valproic acid 500mg QID, Clobazam 10mg in AM and 15mg in PM. SNF has not been giving Lacosamide since March 2023. Lacosamide restarted on 06/20 with a 400mg load and further initiation of 200mg BID. Continuous EEG initiated on 06/20 as well. Interval History: Patient had 3 seizure episodes yesterday. Received Lacosamide load last night and continued having ~20 seizures overnight. Objective Patient Vitals for the past 24 hrs: BP Temp Temp src Pulse Resp SpO2 06/21/23 0407 120/90 99.2 ??F (37.3 ??C) Axillary 93 -- 95 % 06/21/23 0056 -- -- -- -- -- 93 % 06/20/23 2322 115/68 98.9 ??F (37.2 ??C) -- 81 18 95 % 06/20/239 131/87 98.1 ??F (36.7 ??C) -- 95 -- 96 % 06/20/235 131/87 98.1 ??F (36.7 ??C) -- 90 -- 97 % 06/20/23 1243 -- -- -- 90 -- 98 % 06/20/23 1201 120/70 96.6 ??F (35.9 ??C) Oral 94 20 98 % 06/20/23 1012 141/77 -- -- 84 -- -- 06/20/23 0827 131/70 98.4 ??F (36.9 ??C) Axillary 92 16 96 % Intake/Output Summary (Last 24 hours) at 06/21/2023 0817 Last data filed at 06/21/2023 0624 Gross per 24 hour Intake 1866 ml Output 1350 ml Net 516 ml Exam: Physical exam severely limited due to lack of patient participation/ability to respond to questioning/follow instruction. Cortical Function Mental Status Asleep, somnolent, opens eyes to tactile/verbal stimulation but falls back asleep, withdraws to painful stimuli Orientation Unable to assess Language Unable to assess Visual Ivan Unable to assess Neglect Unable to assess Cranial Nerves II Pupils 3 mm and bilaterally reactive to light. Fundoscopic exam not performed. VIII Unable to assess. III/IV/ Extraocular muscles appear to be intact. IX/X Unable to assess. V Unable to assess. XI Unable to assess. VII Unable to assess. XII Unable to assess. Motor Function Movement No abnormalities noted. Bulk No abnormalities noted. Tone No abnormalities noted. Proximal Upper Distal Upper Proximal Lower Distal Lower Right Left -- Muscle Stretch Reflexes BI TRI BR PAT ACH TOES Right 3 2 3 0 0 Left 3 2 3 -- -- -- Sensory Light Touch Unable to assess Noxious Stimuli Withdraws to pain. Temperature Not tested Pallesthesia Not tested Cerebellar FNF FREEDOM HKS Right Unable to assess Unable to assess Unable to assess Left Unable to assess Unable to assess Unable to assess Gait Deferred Imaging: - Reviewed. No new imaging done since yesterday. - Patient on continuous EEG, will continue to review. Labs: Recent Labs Component Name 06/21/23 0557 06/20/23 0546 06/19/23 1157 WBC 7.8 8.3 8.9 RBC 3.81* 3.77* 3.69* HGB 12.2* 12.1* 11.7* HCT 36.2* 35.9* 34.7* Recent Labs Component Name 06/21/23 0557 06/20/23 0546 06/19/23 1157 NA 138 138 140 CL 105 107 108* CO2 23 26 26 BUN 14 13 12 CREATININE 0.52* 0.51* 0.50* CALCIUM 9.3 9.6 9.5 Recent Labs Component Name 06/21/23 0557 06/20/23 0546 06/19/23 1157 MAGNESIUM 1.8 1.9 1.9 Recent Labs Component Name 06/09/23 1314 02/24/23 1032 12/31/22 2053 PT 13.5 14.1 13.7 INR 1.1 1.1 1.1 Recent Labs Component Name 08/29/22 0537 05/12/22 0314 01/01/22 0349 HGBA1C 4.4 4.4 5.6 EAG 80 80 114 Recent Labs Component Name 01/14/23 0935 01/02/23 0339 07/07/22 0345 04/11/15 0622 CHOL - - - 196 HDL - - - 81 LDLCALC - - - 102* TRIG 339* 736* 102 63 Recent Labs Component Name 06/09/23 1314 TSH 1.238 Recent Labs Component Name 01/02/23 1008 07/11/22 0040 07/01/22 1634 06/28/22 0141 06/27/22 2215 05/30/22 1750 CKTOTAL 51 49 42 - - - TROPONINI - - - <0.010 <0.010 <0.010 Assessment/Plan Bi Tabor is a 63 year old male with PMHx of epilepsy, chronic hypoxic respiratory failure s/p tracheostomy and PEG placement, HTN, HLD, previous stroke/vascular dementia who was brought to [facility] for altered mental status. He was found to have a UTI and pneumonia and has completed antibiotic courses for both infections. He is now having breakthrough seizures for which neurology was consulted for. #Breakthrough seizures, #Epilepsy - Home regimen: Keppra 2g BID, Vimpat 200mg BID, Valproic Acid 500mg QID, Clobazam 10mg AM and 15mgPM - Vimpat has not been taken since March 2023, and was not started upon admission to [facility] - cEEG, continue to monitor/review - Increase clobazam dose to 15mg BID. If seizures continue, can increase to 20mg BID. - Restart patient on home dose of Vimpat, continue home regimen for other medications. Patient seen and discussed with attending physician, Dr. Peterson. Mira Wiley, MS3 Neurology [employer] * Renetta Eden RN - 06/21/2023 7:42 AM CST Problem: Nutrient: Inadequate protein-energy intake Goal: Total intake will meet estimated nutrient needs Outcome: Progressing Problem: Fall Risk Goal: Fall risk and [...] is maintained or improved Outcome: Progressing Problem: Safety related to restraint use Goal: Absence of injury while restrained Outcome: Progressing Problem: Impaired Gas Exchange Goal: Resp rate/effort will be within specified limits Outcome: Progressing Problem: Ineffective Airway Clearance Goal: Patent airway Outcome: Progressing [employer] * Herminio Morrison DO - 06/21/2023 7:33 AM CST Neurology Consult Note/History & Physical Patient: Bi L Trenton Age: [age] year old Admission Date and Time: 06/09/2023 Subjective Reason for consult/Chief Complaint: Break through seizures History of Presenting Illness: Bi Tabor is a 63 year old male w/ PMH of eliplepsy (L tempero-occipital lobes), CHRF s/p trach and PEG, HTN, HLD, PAD s/p L AKA, Hx of CVA's and vascular dementia who was admitted for acute encephalopathy. Patient found to have PNA as well as Pseudomonas UTI. Patient completed course w/ ceftolozane/tazobactam and vancomycin. Patient then found to have seizure on 06/20, neurology consulted. Patient loaded w/ vimpat 600mg and started on cEEG. Had additional seizure after vimpat load. Overnight: Patient continued to have multiple seizures on cEEG overnight. Will plan to increase benzo's today.Patient had clinically correlated seizure during rounds this morning. 2mg Ativan ordered, primary team notified. Past Medical History No history on file. Past Medical History: Diagnosis Date ??? Cerebrovascular disease ??? HTN (hypertension) ??? Seizure (CMS-HCC) Past Surgical History: Procedure Laterality Date ??? ENDOSCOPY, UPPER N/A 03/25/2022 N/A; ESOPHAGOGASTRODUODENOSCOPY (EGD) DIAGNOSTIC with PEG Placement ??? ENT SURGERY N/A 07/15/2022 N/A; TRANSCERVICAL ZENKERS DIVERTICULECTOMY, OPEN TRACHEOSTOMY ??? 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 SINUS SURGERY N/A 11/26/2022 N/A; Bilateral Nasal Endoscopy, Right polypectomy, Right Maxillary Antrostomy, Rihjy Anterior Ethmoidectomy Allergies Allergies Allergen Reactions ??? Clonazepam Psychiatric hallucinations Family History FMHx: Family history has been reviewed and is non contributory Social History Social history has been reviewed and is non contributory to current case. Review of Systems General - Denies changes in weight or appetite ENT - Denies dental or swallowing difficulties Cardiac - Denies chest pain or palpitations Pulmonary - Denies shortness of breath, cough, or sputum production Gastrointestinal - Denies abdominal pain or changes in bowel habits Genitourinary - Denies changes in bladder habits Endocrine - Denies heat or cold intolerance Musculoskeletal - Denies myalgias or arthralgias Hematological - Denies history of malignancy or blood abnormalities Neurological - See HPI Objective BP 120/90 (BP Cuff Size: A) Pulse 93 Temp 99.2 ??F (37.3 ??C) (Axillary) Resp 18 Ht 1.778 m(5' 10 ) Wt 81.6 kg (180 lb) SpO2 95% Temp (30hrs) Max:99.2 ??F (37.3 ??C) Body mass index is 25.83 kg/m??. Exam: General: Con - NAD, afebrile Heent - NCAT, MMM, anicteric Neck - No JVD, LAD, trachea midline CV - RRR for age, normal s1/s2, no m/r/g Pulm - CTAB, no w/r/r Abd - BS+, soft, NTND Ext: No c/c/e, 2+ dpp, normal ROM Cortical Function Mental Status Will withdraw to painful stimuli, opens eyes to name Orientation AxOx0 Language Unable to determine Visual Ivan Unable to determine Neglect Unable to determine Cranial Nerves II Pupils 4 mm and bilaterally reactive to light. Fundoscopic exam not performed. VIII Hearing is intact bilaterally to finger rub. III/IV/ Extraocular muscles intact. No diplopia, ptosis, nystagmus or convergence abnormalities noted. IX/X Palate elevated symmetrically without phonation abnormalities noted. V Facial sensation symmetric to light touch and intact bilaterally. Corneal reflex not examined. XIHead turning and shoulder shrug are intact. VII No facial palsy noted. XII Tongue is midline with normal movements and no atrophy noted. Motor Function Movement No abnormalities noted Bulk No abnormalities noted Tone No abnormalities noted Muscle Stretch Reflexes BI TRI BR PAT ACH TOES Right 3 2 3 0 0 Left 3 2 3 Sensory Light Touch Unable to determine Noxious Stimuli withdraws Temperature Not tested Pallesthesia Not tested Cerebellar FNF FREEDOM HKS Right Intact Deferred Deferred Left Intact Deferred Deferred Gait Deferred Labs: Results for orders placed or performed during the hospital encounter of 06/09/23 (from the past 24 hour(s)) CBC W AUTO DIFFERENTIAL Result Value Ref Range WBC 7.8 4.0 - 10.7 x10E9/L RBC Count 3.81 (L) 4.30 - 5.80 x10E12/L Hemoglobin 12.2 (L) 13.3 - 17.5 g/dL Hematocrit 36.2 (L) 38.7 - 51.1 % MCV 95.0 80.0 - 98.0 fL MCH 32.0 26.7 - 33.6 pg MCHC 33.7 31.7 - 36.3 g/dL RDW-CV 14.7 11.3 - 14.8 % Platelet Count 201 150 - 420 x10E9/L MPV 13.0 (H) 7.8 - 11.4 fL Neutrophil % 38.5 (L) 41.0 - 74.0 % Lymphocyte % 42.3 17.0 - 47.0 % Monocyte % 14.7 (H) 3.0 - 11.0 % Eosinophil % 2.1 0.0 - 7.0 % Basophil % 0.3 0.0 - 1.6 % Immature Granulocytes % 2.1 (H) 0.0 - 1.0 % Neutrophil Absolute 2.99 1.60 - 7.50 x10E9/L Lymphocyte Absolute 3.28 1.00 - 4.40 x10E9/L Monocyte Absolute 1.14 (H) 0.15 - 1.00 x10E9/L Eosinophil Absolute 0.16 0.00 - 0.60 x10E9/L Basophil Absolute 0.02 0.00 - 0.13 x10E9/L NRBC 0.5 (H) <=0.0 /100 WBC COMPREHENSIVE METABOLIC PANEL Result Value Ref Range BUN 14 7 - 26 mg/dL Creatinine 0.52 (L) 0.71 - 1.16 mg/dL Sodium 138 136 - 145 mmol/L Potassium 4.8 (H) 3.5 - 4.5 mmol/L Chloride 105 98 - 107 mmol/L CO2 23 22 - 29 mmol/L Glucose 111 70 - 115 mg/dL Calcium 9.3 8.4 - 10.2 mg/dL Protein Total 7.2 6.0 - 8.3 g/dL Albumin 2.7 (L) 3.4 - 5.0 g/dL Bilirubin Total 0.3 0.2 - 1.2 mg/dL Alkaline Phosphatase 94 40 - 150 U/L ALT 29 5 - 55 U/L AST 27 5 - 34 U/L Anion Gap 10 6 - 16 BUN/Creatinine Ratio 27 (H) 7 - 23 Osmolality Calculated 287 275 - 295 mOsm/kg Albumin/Globulin Ratio 0.6 (L) 1.1 - 2.3 eGFR by CKD-EPI >90 >=90 mL/min/1.73 m2 MAGNESIUM BLOOD Result Value Ref Range Magnesium 1.8 1.6 - 2.6 mg/dL PHOSPHORUS BLOOD Result Value Ref Range Phosphorus 2.9 2.8 - 5.1 mg/dL VALPROIC ACID LEVEL Result Value Ref Range Valproic Acid Total 53 50 - 100 ug/mL Neuroimaging: Reviewed Assessment and Plan: #Breakthrough seizures #Epilepsy -Patient home regimen: keppra 2g BID, vimpat 200mg BID, valproic acid 500mg QID, clobazam 10mg AM and 15mg PM. -Patient vimpat was not started -s/p vimpat load w/ 600mg on 06/20 PLAN -cEEG -Increase clobazam to 15mg BID, if continues to seize will increase to 20mg BID -Clinically correlated seizure during rounds, will give 2mg Ativan to abort seizure. -Cont home AED meds as above Discussed with General Neurology Attending Physician, Dr. Kristen Morrison, DO Internal Medicine, PGY-3 Pager [phone] 06/21/2023 7:34 AM [employer] Associated attestation - Olga Peterson MD - 06/21/2023 3:57 PM PROFESSOR OF SPORT MANAGEMENT I have seen and examined the patient with the resident and I agree with the findings and plan of care as documented by the resident. Date of Service: 06-21-23. Olga Peterson MD * China Rizzo RN - 06/21/2023 5:46 AM CST Problem: Fall Risk Goal: Fall risk and fall related injury risk are minimized (interventions related to the fall risk can be found in the flowsheet documentation) 06/21/2023544 by China Rizzo, RN Outcome: Progressing 06/21/2023544 by China Rizzo, ALFRED Outcome: Progressing Problem: Pain/Discomfort Goal: Patient exhibits reduced pain/discomfort as evidenced by pain scores 06/21/2023 0545 by China Rizzo RN Outcome: Progressing 06/21/2023 0545 by China Rizzo RN Outcome: Progressing Goal: Patient uses pharmacological and non-pharmacological pain management strategies. 06/21/2023 0545 by China Rizzo RN Outcome: Progressing 06/21/2023 0545 by China Rizzo RN Outcome: Progressing Goal: Patient verbalizes acceptable level of pain relief and ability to engage in desired activity. 06/21/2023 0545 by China Rizzo RN Outcome: Progressing 06/21/2023 0545 by China Rizzo RN Outcome: Progressing Problem: Skin Integrity Goal: Skin integrity is maintained or improved Outcome: Progressing Problem: Impaired Gas Exchange Goal: Resp rate/effort will be within specified limits Outcome: Progressing Problem: Ineffective Airway Clearance Goal: Patent airway Outcome: Progressing [employer] * Gaurav Juarez MSW - 06/20/2023 12:54 PM CST Care Coordination Progress Note Anticipated level of care at discharge: [facility] - Skilled Facility: Anticipated level of care provider: [facility] (formerly [facility] and [facility]): Anticipated Discharge Date: 06/22/23: Discharge Plan: SW following for this pt to return to SNF once medically ready. Orientation Level: Unable to Obtain: Family Support (Name and Phone): Extended Emergency Contact Information Primary Emergency Contact: Adriane Hilliard Mobile Relation: Sister Tray Drier needed? No Secondary Emergency Contact: Amarjit Tabor [facility] Relation: Brother Transportation at Discharge: Ambulance: READMISSION RISK SCORE is 22 at 12:54 PM 06/20/2023.: Name: CLARITA Ram [employer] * Dipti Quispe MD - 06/20/2023 12:05 PM CST Mr Pat is a 63 yo M with refractory epilepsy admitted to IM for pneumonia. Called by primary team due to concern for breakthrough seizures. On review of medications, patient is supposed to be [id number] mg BID which wasn't started. Would recommend loading with 400 mg and starting 200 mg BID tonight. Since the patient is back to his cognitive baseline per primary, okay to hold off on EEG. If he has further seizures despite restarting Vimpat, will likely increase Onfi to 15 BID since that was the most recent change (Apr 2023). Please call for additional concerns/questions. 1:07 PM The medications are confirmed by the patient's primary epileptologist and it is best to refrain from any changes per NH or other providers. The most recent med list is as follows: - Lacosamide 200 mg BID - Levetiracetam 2000 mg BID - Valproid Acid 500 mg QID - Clobazam 10 mg AM and 15 mg PM 3:58 PM Update: Primary team concerned about patient's change in baseline. Recommend load of Lacosamide 600mg because we can not rule out NCSE. Will start continuous EEG monitoring and follow along. Call with questions. Dipti Quispe MD Neurology Resident [employer] * Jennie Fernandes MD - 06/20/2023 10:15 AM CST [facility] INTERNAL MEDICINE PROGRESS NOTE Patient: Bi Tabor Sex: male Age: [age] year old Date of : 1960 Date of Admission: 06/09/2023 Date: 06/20/2023 LOS: 11 SUBJECTIVE Interval History: Patient witnessed having 3 events of seizures lasted 2 min within 10 min - Twitching in his right side of the face with eye deviation to the left, sleepy after wards and staring. Hospital Course: Mr. Pat is a 63 year old gentleman??with PMH of epilepsy post (left tempero occipital lobes), chronic hypoxic respiratory failure s/p tracheostomy and PEG placement, HTN, HLD, PAD s/p L AKA previousCVAs and vascular dementia. He was admitted??for acute encephalopathy and being treated for PNA andalso positive Urine culture for pseudomonas. Previous sputum cx with pseudomonas MDRO. Completed??ceftolozane/tazobacta??(sensitive)??and ??Vancomycin as??MRSA PCR positive course and improved.??Patient requires frequent suctioning to maintain target saturation. On 06/20 he had seizures (twitching in right side of the face with left gaze deviation), not responsive during the events had 3 consecutive events lasted 1-2 min within 30 min all of them. Afterwards he is sleepy and not back to baseline. Loaded with 600 Vimpat IV once and connected to EEG. After reviewing chart, contacting nursing facility and family, medications are not given as prescribed. CT head no acute events. OBJECTIVE Vital Signs: Vitals: 06/20/23 0545 06/20/23 0827 06/20/23 1012 06/20/23 1201 BP: 131/70 141/77 120/70 Pulse: 90 92 84 94 Resp: 16 16 20 Temp: 98.4 ??F (36.9 ??C) 96.6 ??F (35.9 ??C) SpO2: 93% 96% 98% Weight: Height: Temp Min: 96.6 ??F (35.9 ??C) Max: 102.6 ??F (39.2 ??C), Pulse Min: 67 Max: 126, Resp Min: 9 Max: 31, BP Min: 105/67 Max: 169/82 Intake & Output: In: 599 Out: 1850 [Urine:1850] Physical Exam: Having right facial twitching lasted 1-2 minutes Left gaze deviation Current Medications: Scheduled: ??? 0.9% NaCl 3 mL Intracatheter q8h ??? acetaminophen 1,000 mg Enteral Tube TID ??? artificial tears Each Eye q8h ??? aspirin 81 mg Enteral Tube QDAY ??? atorvastatin 40 mg Enteral Tube AT BEDTIME ??? cloBAZam 10 mg Enteral Tube QAM And ??? cloBAZam 15 mg Enteral Tube QPM ??? famotidine 20 mg Enteral Tube BID ??? guaiFENesin 15 mL Enteral Tube Every 6 Hours (03,09,15,21) ??? heparin 5,000 Units Subcutaneous q8h ??? levETIRAcetam 2,000 mg Enteral Tube BID ??? metoprolol tartrate IR 25 mg Enteral Tube BID ??? valproic acid 500 mg Per G Tube 4X/day Continuous: PRN: ??? SALINE LOCK, INSERT AND MAINTAIN AND 0.9% NaCl AND 0.9% NaCl ??? ibuprofen Significant Lab Results: Unremarkable. Microbiology: None. Imaging & Studies: Reviewed. ASSESSMENT & PLAN Sepsis due to pneumonia (CMS-HCC) (POA: Yes) History of CVA (cerebrovascular accident) (POA: Yes) Essential (primary) hypertension (POA: Yes) Severe protein-calorie malnutrition (CMS-HCC) (POA: Yes) Chronic respiratory failure with hypoxia (CMS-HCC) (POA: Yes) Pleural effusion (POA: Yes) Elevated lactic acid level (POA: Yes) Mr. Sharona Pat is a 63 year old gentleman with PMH of HTN, Epilepsy presented with acute encephalopathy being managed for Pneumonia and possible UTI??due to pseudomonas??(MDR). Hospital course complicated with breakthrough seizure. O Breakthrough seizures: O AMS - Patient has focal seizures on 06/20: right side face twitching, left gaze deviation. > Given Ativan 2mg Once > AEDs levels ordered. - Has epilepsy following stroke, refractory requiring four medications. - Neurology team reached out to his epileptologist and patient was supposed to be taking the following medications Lacosamide (Vimpat) 200 mg BID/ Levetiracetam 2000 mg BID/ Valproid Acid 500 mg QID / Clobazam 10 mg AM and 15 mg PM. - Patient was not given Vimpat in the facility since 03/2023. - CT head without acute events. - Patient not back to baseline. - Loaded with Vimpat 600 IV once and then 200 mg BID for maintenance. - cEEG attached. - Neurology team following. - Family (sister) updated about the events. -Seizure precautions. O??Sepsis due to UTI vs pneumonia?? O Pneumonia: MDR pseudomonas + MRSA -Urinalysis positive for bacteria and urine culture grew pseudomonas.?? -Blood cultures were positive for gram positive cocci. Repeat blood cultures ordered. Sputum cultures and repeat urine cultures pending. -Pt has history of multiple MDR Pseudomonas infections -Continue vancomycin and ceftolozane/tazobactam?? -Infectious disease??following?? - Gram stain and culture of tracheal secretion.?? - UA and urine culture (from straight cath).?? - Blood cultures??06/13: Pending. - Previous ABx: ?Ceftraizone 1 g OD (06/09-06/10) - Current ABx: Zebraxa (Ceftolozane- Tazobactam) 3 g Q 8h (Start date 06/11) ??, Vancomycin 1,5 g Q12 hour (Start date 06.13) - Completed.? O??Chronic??Headache:?? - Having headache. - Tylenol 1g TID scheduled.?? - Depakote aids in headache prevention as preventive medication.? O??HTN -Continue Lopressor??25 mg BID.? O??HLD -Continue Lipitor??40mg OD .? Code:??Full.?? Diet:??PEGTube feeding?? Electrolytes:??Replete PRN PPx:??Heparin?? Access:PIV, trach tube, Jensen, GJ tube.?? Dispo:Medicine.? Anticipated level of care at discharge: [facility] - Skilled Facility. Family prefer him going to facility on Tuesday as charge nurse will be available at facility to accept the patient back.? Not candidate for boardly due to need of frequent suctioning. ?? The above assessment and plan will be discussed with the attending. This note is not final until attested by attending physician. Jennie Fernandes MD Neurology Resident [facility] 06/20/2023 3:51 PM [employer]OR OF SPORT MANAGEMENT Associated attestation - Norma Briones MD - 06/20/2023 10:19 PM PROFESSOR OF SPORT MANAGEMENT I have seen and examined the patient with the resident and I agree with the findings and plan of care as documented by the resident. In addition: Noted to have seizure upon my exam today, 3 different times within 2 minutes, 3rd seizure aborted with ativan CTH, EEG, neuro c/s, will check AED levels and inform family Hold on DC today Date of Service: 06/20/2023 Norma Briones MD READMISSION RISK SCORE is 22 at 10:19 PM 06/20/2023. * Sharla Short RN - 06/20/2023 6:54 AM CST Problem: Nutrient: Inadequate protein-energy intake Goal: Total intake will meet estimated nutrient needs Outcome: Progressing Problem: Fall Risk Goal: Fall risk and [...] is maintained or improved Outcome: Progressing Problem: Safety related to restraint use Goal: Absence of injury while restrained Outcome: Progressing [employer]NAGEMENT * Saloni Connelly RN - 06/19/2023 3:54 PM CST Problem: Nutrient: Inadequate protein-energy intake Goal: Total intake will meet estimated nutrient needs Outcome: Progressing Problem: Fall Risk Goal: Fall risk and [...] is maintained or improved Outcome: Progressing Problem: Safety related to restraint use Goal: Absence of injury while restrained Outcome: Progressing [employer]NAGEMENT * Jennie Fernandes MD - 06/19/2023 1:41 PM CST Images from the original note were not included. [facility] INTERNAL MEDICINE PROGRESS NOTE Patient: Bi Tabor Sex: male Age: [age] year old Date of : 1960 Date of Admission: 06/09/2023 Date: 06/19/2023 LOS: 10 SUBJECTIVE Interval History: Still requiring suctioning. Hospital Course: Mr. Pat is a 63 year old gentleman??with PMH of epilepsy, chronic hypoxic respiratory failure s/p tracheostomy and PEG placement, HTN, HLD, PAD s/p L AKA previous CVAs and vascular dementia. He was admitted??for acute encephalopathy and being treated for PNA and also positive Urine culture for pseudomonas. Previous sputum cx with pseudomonas MDRO. Completed ceftolozane/tazobacta??(sensitive)??and Vancomycin as??MRSA PCR positive course and improved, pending placement. Patient requires frequentsuctioning to maintain target saturation. OBJECTIVE Vital Signs: Vitals: 06/19/23 0314 06/19/23 0535 06/19/23 0839 06/19/23 1041 BP: 122/71 118/72 Pulse: 74 88 Resp: 20 20 Temp: 98.1 ??F (36.7 ??C) 98.4 ??F (36.9 ??C) SpO2: 95% (!) 89% 96% 95% Weight: Height: Temp Min: 97.6 ??F (36.4 ??C) Max: 102.6 ??F (39.2 ??C), Pulse Min: 67 Max: 126, Resp Min: 9 Max: 31, BP Min: 105/67 Max: 169/82 Intake & Output: In: 4687 Out: 4150 [Urine:4150] Physical Exam: Gen: ?Alert, cooperative. Eyes: ?Conjunctivae/corneas clear, EOMI Neck: ??has trach tube. Back: ?Symmetric, no curvature Resp: ?CTAB, no wheezes/crackles CV:?RRR, S1S2, No M/R/G Abd:?PEG tube in place. Ext:?Left AKA.? Pulses: 2+ DP B Skin: ?Skin color, texture, turgor normal. No rashes or lesions Neuro: No focal deficits? Current Medications: Scheduled: ??? 0.9% NaCl 3 mL Intracatheter q8h ??? acetaminophen 1,000 mg Enteral Tube TID ??? artificial tears Each Eye q8h ??? aspirin 81 mg Enteral Tube QDAY ??? atorvastatin 40 mg Enteral Tube AT BEDTIME ??? cloBAZam 10 mg Enteral Tube QAM And ??? cloBAZam 15 mg Enteral Tube QPM ??? famotidine 20 mg Enteral Tube BID ??? guaiFENesin 15 mL Enteral Tube Every 6 Hours (03,09,15,) ??? heparin 5,000 Units Subcutaneous q8h ??? levETIRAcetam 2,000 mg Enteral Tube BID ??? metoprolol tartrate IR 25 mg Enteral Tube BID ??? valproic acid 500 mg Per G Tube 4X/day Continuous: PRN: ??? SALINE LOCK, INSERT AND MAINTAIN AND 0.9% NaCl AND 0.9% NaCl ??? ibuprofen Significant Lab Results: Reviewed. Microbiology: Sputum Culture 06/08: Light pseudomonas. . Persistent on repeated 06/11 and MRSA DNR + Urine Culture 06/08: ??Pseudomonads. Persistent on repeated 06/11. Blood Culture 06/11: Growth of Staphylococcus pettenkoferi. Blood culture 06/13:no growth. Susceptibility of sputum culture:?? Imaging & Studies: Reviewed. ASSESSMENT & PLAN Sepsis due to pneumonia (CMS-HCC) (POA: Yes) History of CVA (cerebrovascular accident) (POA: Yes) Essential (primary) hypertension (POA: Yes) Severe protein-calorie malnutrition (CMS-HCC) (POA: Yes) Chronic respiratory failure with hypoxia (CMS-HCC) (POA: Yes) Pleural effusion (POA: Yes) Elevated lactic acid level (POA: Yes) ?? Mr. Sharona Pat is a 63 year old gentleman with PMH of HTN, Epilepsy presented with acute encephalopathy being managed for Pneumonia and possible UTI??due to pseudomonas??(MDR). ? O??Sepsis due to UTI vs pneumonia?? O??AMS O Pneumonia: MDR pseudomonas + MRSA -Urinalysis positive for bacteria and urine culture grew pseudomonas.?? -Blood cultures were positive for gram positive cocci. Repeat blood cultures ordered. Sputum cultures and repeat urine cultures pending. -Pt has history of multiple MDR Pseudomonas infections -Continue vancomycin and ceftolozane/tazobactam?? -Infectious disease??following?? - Gram stain and culture of tracheal secretion.?? - UA and urine culture (from straight cath).?? - Blood cultures??06/13: Pending. - Previous ABx: ?Ceftraizone 1 g OD (06/09-06/10) - Current ABx: Zebraxa (Ceftolozane- Tazobactam) 3 g Q 8h (Start date 06/11) ??, Vancomycin 1,5 g Q12 hour (Start date 06.13) - Completed. ?? O??Epilipsy?? -Continue home Keppra??2g BID,?and Valproic acid 500 mg QID.?? -Seizure precautions. -Fall precautions. ?? O??Chronic??Headache:?? - Having headache. - Tylenol 1g TID scheduled.?? - Depakote aids in headache prevention as preventive medication.? O??HTN -Continue Lopressor??25 mg BID.? O??HLD -Continue Lipitor??40mg OD .? Code:??Full.?? Diet:??PEGTube feeding?? Electrolytes:??Replete PRN PPx:??Heparin?? Access:PIV, trach tube, Jensen, GJ tube.?? Dispo:Medicine.? Anticipated level of care at discharge: [facility] - Skilled Facility. Family prefer him going to facility on Tuesday as charge nurse will be available at facility to accept the patient back. Not candidate for boardly due to need of frequent suctioning. The above assessment and plan will be discussed with the attending. This note is not final until attested by attending physician. Jennie Fernandes MD Neurology Resident [facility] 06/19/2023 1:41 PM [employer] OF [employer]NAGEMENT Associated attestation - Norma Briones MD - 06/19/2023 8:29 PM PROFESSOR OF SPORT MANAGEMENT I have seen and examined the patient with the resident and I agree with the findings and plan of care as documented by the resident. Date of Service: 06/19/2023 Norma Briones MD READMISSION RISK SCORE is 22 at 8:29 PM 06/19/2023. * Jacob Ramos RN - 06/19/2023 6:09 AM CST This nurse was alerted by the sound of this patient's vitals monitor alarm going off. Upon enteringthe room I observed this patient's SpO2 to be tittering between 88% and 90%. Suctioned patient's trach and SpO2 noted to remain at 88- 89%. Increased this inclination of the bed and adjusted the venti-mask over patient's trach with no change in SpO2 noted. Increased liters from 7LPM to 10LPM with nochange noted. Contacted RT who came immediately and increased FiO2 from 30% to 40% at 10LPM. Patient was also deep suctioned with a medium-large amount of sputum collected. SpO2 noted to increase to mid 93%. Patient currently saturating at 98% on 40% FiO2 at 10LPM via venti-mask to trach. No acute d istress noted. Will continue to observe and treat per orders. [employer]NAGEMENT * Jacob Ramos RN - 06/19/2023 3:10 AM CST Problem: Nutrient: Inadequate protein-energy intake Goal: Total intake will meet estimated nutrient needs Outcome: Progressing Problem: Fall Risk Goal: Fall risk and [...] is maintained or improved Outcome: Progressing Problem: Safety related to restraint use Goal: Absence of injury while restrained Outcome: Progressing [employer]NAGEMENT * Susan Tam RN - 06/18/2023 7:51 PM CST Rapid Response Nurse Rounding Note [facility] [address] [place] [address] Patient: Bi Tabor : 1960 Location: Rapid Response Team completed nightly rounding. Patient found with resting with even and unlabored respirations, VSS as charted. No concern brought forward from staff, no further Rapid Response Nursing needs at this time. Vital Signs: Patient Vitals for the past 6 hrs: Temp Pulse Resp BP BP Method 06/18/23 1924 98.1 ??F (36.7 ??C) 67 18 135/71 Automatic 06/18/23 1720 -- 73 18 -- -- 06/18/23 1635 98.2 ??F (36.8 ??C) 78 -- 111/67 Automatic Susan Tam RN Rapid Response Nurse [id number] [employer]NAG[employer] * Jennie Fernandes MD - 06/18/2023 12:15 PM CST [facility] Transfer Checklist: Reasons for Transfer to [facility] Pending placement in SNF - (same nursing facility he came from). Brief Hospital Course Admitted with Acute respiratory failure due to pseudomonas pneumonia. Pertinent PMH: Epilepsy, Chronic hypoxic respiratory failure s/p tracheostomy and PEG placement, HTN, HLD, PAD s/pL AKA previous CVAs Home Meds Being Held: None ABx Indications/End Date: Completed. Consult Teams Past and Present: ID Pending Workup: None Things to Watch: Deep suctioning from trach tube Disposition Place and Date: SNF To Address Prior to DC: If nursing facility is ok to take him back on Tuesday Follow Up Appointments: (Already arranged and need to arranged) None To Address after DC (F/U etc): None Please add PRN Narcan order if appropriate for this patient None [employer] MANAGEMENT * Jennie Fernandes MD - 06/18/2023 12:10 PM CST Images from the original note were not included. [facility] INTERNAL MEDICINE PROGRESS NOTE Patient: Bi Tabor Sex: male Age: [age] year old Date of : 1960 Date of Admission: 06/09/2023 Date: 06/18/2023 LOS: 9 SUBJECTIVE Interval History: Doing well, with deep suctioning. Hospital Course: Mr. Pat is a 63 year old gentleman??with PMH of epilepsy, chronic hypoxic respiratory failure s/p tracheostomy and PEG placement, HTN, HLD, PAD s/p L AKA previous CVAs and vascular dementia. He was admitted??for acute encephalopathy and being treated for PNA and also positive Urine culture for pseudomonas. Previous sputum cx with pseudomonas MDRO. Completed ceftolozane/tazobacta??(sensitive)??and Vancomycin as??MRSA PCR positive course and improved, pending placement. OBJECTIVE Vital Signs: Vitals: 06/17/23 2318 06/18/23 0335 06/18/23 0920 06/18/23 1028 BP: 143/88 134/77 Pulse: 87 92 96 Resp: Temp: 98.2 ??F (36.8 ??C) SpO2: 100% 98% 90% Weight: Height: Temp Min: 97.6 ??F (36.4 ??C) Max: 102.6 ??F (39.2 ??C), Pulse Min: 67 Max: 126, Resp Min: 9 Max: 31, BP Min: 105/67 Max: 169/82 Intake & Output: In: - Out: 3700 [Urine:3700] Physical Exam: Gen: ?Alert, cooperative, no distress Head: ?Normocephalic, without obvious abnormality, atraumatic Eyes: ?Conjunctivae/corneas clear, EOMI Nose: ?Mucosa normal. No drainage. Throat: Moist mucous membranes Neck: ?No JVD, no carotid bruit, trachea midline Back: ?Symmetric, no curvature Resp: ?CTAB, no wheezes/crackles CV:?RRR, S1S2, No M/R/G Abd:?S/NT/ND, BS+, no bruits Ext:?Left AKA.? Pulses: 2+ DP B Skin: ?Skin color, texture, turgor normal. No rashes or lesions Neuro: No focal deficits?? Current Medications: Scheduled: ??? 0.9% NaCl 3 mL Intracatheter q8h ??? acetaminophen 1,000 mg Enteral Tube TID ??? artificial tears Each Eye q8h ??? aspirin 81 mg Enteral Tube QDAY ??? atorvastatin 40 mg Enteral Tube AT BEDTIME ??? cloBAZam 10 mg Enteral Tube QAM And ??? cloBAZam 15 mg Enteral Tube QPM ??? famotidine 20 mg Enteral Tube BID ??? guaiFENesin 15 mL Enteral Tube Every 6 Hours (03,09,15,21) ??? heparin 5,000 Units Subcutaneous q8h ??? levETIRAcetam 2,000 mg Enteral Tube BID ??? metoprolol tartrate IR 25 mg Enteral Tube BID ??? valproic acid 500 mg Per G Tube 4X/day Continuous: PRN: ??? SALINE LOCK, INSERT AND MAINTAIN AND 0.9% NaCl AND 0.9% NaCl ??? ibuprofen Significant Lab Results: Reviewed. Microbiology: Sputum Culture 06/08: Light pseudomonas. . Persistent on repeated 06/11 and MRSA DNR + Urine Culture 06/08: ??Pseudomonads. Persistent on repeated 06/11. Blood Culture 06/11: Growth of Staphylococcus pettenkoferi. Blood culture 06/13:no growth to date. Susceptibility of sputum culture:? Imaging & Studies: Reviewed. ASSESSMENT & PLAN Sepsis due to pneumonia (CMS-HCC) (POA: Yes) History of CVA (cerebrovascular accident) (POA: Yes) Essential (primary) hypertension (POA: Yes) Severe protein-calorie malnutrition (CMS-HCC) (POA: Yes) Chronic respiratory failure with hypoxia (CMS-HCC) (POA: Yes) Pleural effusion (POA: Yes) Elevated lactic acid level (POA: Yes) Mr. Sharona Pat is a 63 year old gentleman with PMH of HTN, Epilepsy presented with acute encephalopathy being managed for Pneumonia and possible UTI??due to pseudomonas??(MDR). ? O??Sepsis due to UTI vs pneumonia?? O??AMS O Pneumonia: MDR pseudomonas + MRSA -Urinalysis positive for bacteria and urine culture grew pseudomonas.?? -Blood cultures were positive for gram positive cocci. Repeat blood cultures ordered. Sputum cultures and repeat urine cultures pending. -Pt has history of multiple MDR Pseudomonas infections -Continue vancomycin and ceftolozane/tazobactam?? -Infectious disease??following?? - Gram stain and culture of tracheal secretion.?? - UA and urine culture (from straight cath).?? - Blood cultures??06/13: Pending. - Previous ABx: ?Ceftraizone 1 g OD (06/09-06/10) - Current ABx: Zebraxa (Ceftolozane- Tazobactam) 3 g Q 8h (Start date 06/11) ??, Vancomycin 1,5 g Q12 hour (Start date 06.13) - Completed. ?? O??Epilipsy?? -Continue home Keppra??2g BID,?and Valproic acid 500 mg QID.?? -Seizure precautions. -Fall precautions. ?? O??Chronic??Headache:?? - Having headache. - Tylenol 1g TID scheduled.?? - Depakote aids in headache prevention as preventive medication.? O??HTN -Continue Lopressor??25 mg BID.? O??HLD -Continue Lipitor??40mg OD .? Code:??Full.?? Diet:??PEGTube feeding?? Electrolytes:??Replete PRN PPx:??Heparin?? Access:PIV, trach tube, Jensen, GJ tube.?? Dispo:Medicine.? Anticipated level of care at discharge: [facility] - Skilled Facility. Family at bed side prefer going to facility on Tuesday as charge nurse will be available at facilityto accept the patient back. The above assessment and plan will be discussed with the attending. This note is not final until attested by attending physician. [facility]/18/2023 12:10 PM ESSOR OF SPORT MANAGEMENT Associated attestation - Norma Briones MD - 06/18/2023 11:49 PM PROFESSOR OF SPORT MANAGEMENT I have seen and examined the patient with the resident and I agree with the findings and plan of care as documented by the resident. In addition: No complaints, is doing well Sister and brother at bedside, sister says facility has learned to do deep suctioning on patient, but it varies on which nurses do it (ie agency) but feels he is doing well overall in the facility. Sister says charge nurse will be back on Tuesday and this would be the safest time to transfer him to ensure proper suctioning Abx complete today Ok for transfer to [facility] Date of Service: 06/18/2023 Norma Briones MD READMISSION RISK SCORE is 22 at 11:47 PM 06/18/2023. * An Santos RN - 06/18/2023 7:51 AM CST Problem: Fall Risk Goal: Fall risk and fall related injury risk are minimized (interventions related to the fall risk can be found in the flowsheet documentation) Outcome: Progressing Problem: Skin Integrity Goal: Skin integrity is maintained or improved Outcome: Progressing [employer] MANAGEMENT * Susan Tam RN - 06/17/2023 7:59 PM CST Rapid Response Nurse Rounding Note [place] [id number] Patient: Bi Tabor : 1960 Location: Rapid Response Team completed nightly rounding following patient that had trach decannulation 06/16/23. Patient found in bed with trach collar in place, respirations even and unlabored, VS as charted.No new concerns brought forward at this time when talking with staff. No further Rapid Response Nursing needs at this time. Vital Signs: Patient Vitals for the past 6 hrs: Temp Pulse Resp BP 06/17/23 1549 98.2 ??F (36.8 ??C) 107 24 149/87 Susan Tam RN Rapid Response Nurse [id number] [employer]NAG[employer] * Carmel Euceda RN - 06/17/2023 4:27 PM CST EMERGENCY RESPONSE ROUNDING NOTE [place] [id number] Patient: Bi Tabor Location: : 1960 Reason for Admission: No admission diagnoses are documented for this encounter. Provider Teams Team Comment Primary Team Specialty Team Pager 1st Contact 1st Contact Number [facility] Red Team Yes Internal Medicine -- Date/Time: 06/17/2023 1600 HR OPERATIONS ADVISOR following up on patient s/p decannulation yesterday. Patient noted to be in bed on humidified trach collar, alert and in no acute distress. Patient endorses feeling well. Trach (5 Bivona) in place and WDL. Patient with oxygen saturations in the high 90's. Per primary RN, secretions are thin. Reached out to emergency medical technician, Dr. Fernandes, regarding patient's trach size. Per Dr. Fernandes, patient is okay to continue with size 5 Bivona as long as the patient is tolerating. No HR OPERATIONS ADVISOR interventions necessary at this time. Vital Signs: Patient Vitals for the past 24 hrs: Temp Pulse Resp BP SpO2 O2 % (FiO2) 06/17/23 1549 98.2 ??F (36.8 ??C) 107 24 149/87 99 % -- 06/17/23 1256 -- 86 -- -- 96 % 30 % 06/17/23 1141 98.4 ??F (36.9 ??C) 86 24 156/98 96 % -- 06/17/23 0508 -- -- -- -- -- 28 % 06/16/23 2317 98.3 ??F (36.8 ??C) 82 18 139/78 96 % -- 06/16/232023 -- -- -- -- 96 % 28 % 06/16/232002- -- 152/84 94 % -- 06/16/231807 -- -- -- 93 % 28 % Carmel Euceda RN Emergency Response Nurse [id number] [employer] OF [employer]NAGEMENT * Jennie Fernandes MD - 06/17/2023 4:09 PM CST Images from the original note were not included. [facility] INTERNAL MEDICINE PROGRESS NOTE Patient: Bi Tabor Sex: male Age: [age] year old Date of : 1960 Date of Admission: 06/09/2023 Date: 06/17/2023 LOS: 8 SUBJECTIVE Interval History: Still requiring deep suctioning. More sleepy today but follows command. Hospital Course: Mr. Pat is a 63 year old gentleman??with PMH of epilepsy, chronic hypoxic respiratory failure s/p tracheostomy and PEG placement, HTN, HLD, PAD s/p L AKA previous CVAs and vascular dementia. He was admitted??for acute encephalopathy and being treated for PNA and also positive Urine culture for pseudomonas. Previous sputum cx with pseudomonas MDRO. ID following and recommended starting ceftolozane/tazobacta??(sensitive)??and 06/13 added Vancomycin as??MRSA PCR positive OBJECTIVE Vital Signs: Vitals: 06/16/23 2317 06/17/23 1141 06/17/23 1256 06/17/23 1549 BP: 139/78 156/98 149/87 Pulse: 82 86 86 107 Resp: Temp: 98.3 ??F (36.8 ??C) 98.4 ??F (36.9 ??C) 98.2 ??F (36.8 ??C) SpO2: 96% 96% 96% 99% Weight: Height: Temp Min: 97.6 ??F (36.4 ??C) Max: 102.6 ??F (39.2 ??C), Pulse Min: 67 Max: 126, Resp Min: 9 Max: 31, BP Min: 105/67 Max: 169/82 Intake & Output: In: 50 Out: 2600 [Urine:2600] Physical Exam: Gen: ?Alert, cooperative, no distress Head: ?Normocephalic, without obvious abnormality, atraumatic Eyes: ?Conjunctivae/corneas clear, EOMI Nose: ?Mucosa normal. No drainage. Throat: Moist mucous membranes Neck: ?No JVD, no carotid bruit, trachea midline Back: ?Symmetric, no curvature Resp: ?CTAB, no wheezes/crackles CV:?RRR, S1S2, No M/R/G Abd:?S/NT/ND, BS+, no bruits Ext:?Left AKA.? Pulses: 2+ DP B Skin: ?Skin color, texture, turgor normal. No rashes or lesions Neuro: No focal deficits?? Current Medications: Scheduled: ??? 0.9% NaCl 3 mL Intracatheter q8h ??? acetaminophen 1,000 mg Enteral Tube TID ??? artificial tears Each Eye q8h ??? aspirin 81 mg Enteral Tube QDAY ??? atorvastatin 40 mg Enteral Tube AT BEDTIME ??? ceftolozane-tazobactam 3,000 mg Intravenous q8h ??? cloBAZam 10 mg Enteral Tube QAM And ??? cloBAZam 15 mg Enteral Tube QPM ??? famotidine 20 mg Enteral Tube BID ??? guaiFENesin 15 mL Enteral Tube Every 6 Hours (03,09,15,21) ??? heparin 5,000 Units Subcutaneous q8h ??? levETIRAcetam 2,000 mg Enteral Tube BID ??? metoprolol tartrate IR 25 mg Enteral Tube BID ??? valproic acid 500 mg Per G Tube 4X/day ??? vancomycin 1,000 mg Intravenous q12h ??? vancomycin (VANCOCIN) IV dose per pharmacy Does not apply DIRECTED Continuous: PRN: ??? SALINE LOCK, INSERT AND MAINTAIN AND 0.9% NaCl AND 0.9% NaCl ??? ibuprofen Significant Lab Results: Reviewed. Microbiology: Sputum Culture 06/08: Light pseudomonas. . Persistent on repeated 06/11 and MRSA DNR + Urine Culture 06/08: ??Pseudomonads. Persistent on repeated 06/11. Blood Culture 06/11: Growth of Staphylococcus pettenkoferi. Blood culture 06/13:no growth to date. Susceptibility of sputum culture:? Imaging & Studies: No recent. ASSESSMENT & PLAN Sepsis due to pneumonia (CMS-HCC) (POA: Yes) History of CVA (cerebrovascular accident) (POA: Yes) Essential (primary) hypertension (POA: Yes) Severe protein-calorie malnutrition (CMS-HCC) (POA: Yes) Chronic respiratory failure with hypoxia (CMS-HCC) (POA: Yes) Pleural effusion (POA: Yes) Elevated lactic acid level (POA: Yes) ?? Mr. Sharona Pat is a 63 year old gentleman with PMH of HTN, Epilepsy presented with acute encephalopathy being managed for Pneumonia and possible UTI??due to pseudomonas (MDR). ? O??Sepsis due to UTI vs pneumonia?? O??AMS O Pneumonia: MDR pseudomonas + MRSA -Urinalysis positive for bacteria and urine culture grew pseudomonas.?? -Blood cultures were positive for gram positive cocci. Repeat blood cultures ordered. Sputum cultures and repeat urine cultures pending. -Pt has history of multiple MDR Pseudomonas infections -Continue vancomycin and ceftolozane/tazobactam?? -Infectious disease??following?? - Gram stain and culture of tracheal secretion.?? - UA and urine culture (from straight cath).?? - Blood cultures??06/13: Pending. - Previous ABx: ?Ceftraizone 1 g OD (06/09-06/10) - Current ABx: Zebraxa (Ceftolozane- Tazobactam) 3 g Q 8h (Start date 06/11) ??, Vancomycin 1,5 g Q12 hour (Start date 06.13) - End of Therapy 06/17 - Labs informed to perform??susceptibility for ceftolozane/tazobactam??(Susceptible)??and cefiderocol??(not done yet).? O??Epilipsy?? -Continue home Keppra??2g BID,?and Valproic acid 500 mg QID.?? -Seizure precautions. -Fall precautions. ?? O??Chronic??Headache:?? - Having headache. - Tylenol 1g TID scheduled. - Depakote aids in headache prevention as preventive medication.? O??HTN -Continue Lopressor??25 mg BID.? O??HLD -Continue Lipitor??40mg OD .? Code:??Full.?? Diet:??PEGTube feeding?? Electrolytes:??Replete PRN PPx:??Heparin?? Access:PIV, trach tube, Jensen, GJ tube.?? Dispo:Medicine.? Anticipated level of care at discharge: [facility] - Skilled Facility The above assessment and plan will be discussed with the attending. This note is not final until attested by attending physician. Jennie Fernandes MD Neurology Resident [facility] 06/17/2023 4:09 PM ESSOR OF SPORT MANAGEMENT Associated attestation - Norma Briones MD - 06/17/2023 9:44 PM PROFESSOR OF SPORT MANAGEMENT I have seen and examined the patient with the resident and I agree with the findings and plan of care as documented by the resident. Date of Service: 06/17/2023 Norma Briones MD READMISSION RISK SCORE is 21 at 9:44 PM 06/17/2023. * Gaurav Juarez MSW - 06/17/2023 3:49 PM CST Care Coordination Progress Note Anticipated level of care at discharge: [facility] - Skilled Facility: Anticipated level of care provider: [facility] (formerly [facility] and [facility]): Anticipated Discharge Date: 06/22/23: Discharge Plan: SW following for this pt to return to SNF when med ready. Orientation Level: Oriented to Person;Oriented to Situation: Family Support (Name and Phone): Extended Emergency Contact Information Primary Emergency Contact: Adriane Hilliard Mobile Relation: Sister Tray Drier needed? No Secondary Emergency Contact: Amarjit Tabor [facility] Relation: Brother Transportation at Discharge: Ambulance: READMISSION RISK SCORE is 21 at 3:50 PM 06/17/2023.: Name: CLARITA Ram ESSOR OF SPORT MANAGEMENT * Clover Sanchez RD/ONI - 06/17/2023 10:15 AM CST Clinical Nutrition Assessment Brief Synopsis: Patient is at Nutrition Risk; Specific criteria can be found in assessment below Nutrition Plan: Continue Osmolite 1.2 at 75 ml/hr. Provides 2160 kcals, 100 g Pro, 284 g carbohydrate, 1476 ml free water +50 ml q 6 hrs free water flush or per MD if on IVF +120 ml q 4 hrs free water flush or per MD if not on additional fluids ?? TF considerations: 1. Start at 20ml/h and increase by 10ml/h q 4 h until goal 2. Do not hold unless residuals >500 as recommended by ASPEN. 3. For critical care, If residuals >200, monitor for symptoms of intolerance. 4. Signs of intolerance include: diarrhea, abdominal pain or distention. 5. Head of bed > 30? Recommendations to Physician: Hyperkalemic and hypophosphatemic-manage per protocol Comments: Pt scheduled for reassessment. Last BM 06/15. No report of TF intolerance. RD remains available PRN. F/u per clinical guidelines. Assessment: Med/Surg History and Clinical Diagnoses: 63-year-old male with past medical history of epilepsy, chronic hypoxic respiratory failure status post trach, peg tube, hypertension, hyperlipidemia, previous stroke and vascular dementia who was brought to the hospital because of altered mental status Height: 177.8 cm (5' 10 ) Weight: 81.6 kg (180 lb) BMI: Body mass index is 25.83 kg/m??. BMI Range: Overweight IBW/lb (Calculated) Male: 166 , Recent Weights/Methods 01/14/2023 0700 01/14/2023 1900 01/14/2023 2000 01/14/2023 2100 01/14/2023 2200 02/23/2023 2144 02/25/2023 0900 06/09/2023 1127 Weight: -- -- -- -- -- 71.5 kg (157 lb 10.1 oz) 71.5 kg (157 lb 10.1 oz) 81.6 kg (180 lb) Weight Method : [facility] Stated -- Estimated Wt Comments: Diet order accuracy Current diet order: NPO Current tube feeding order: Osmolite 1.2 @75mL/hr Nutrition recommendation: agree with current nutrition order P.O.Intake for the past 48 hrs: No data recorded Supplement(s) Consumed- Last 48 hours None Food Allergies: No known food allergies GI Concerns: None Chewing/Swallowing: (PEG tube dependent) Pain affecting intake: No Estimated Needs: KCAL: 2170-2122 (25-30 kcal/kg ABW) Protein (g): 82-98g (1.0-1.2 g/kg ABW) Fluid (ml): 1 ml/kcal Needs based on: Kcal/kg- (Comment) (ABW of 81.6kg) Recommended Access Route: TF Laboratory values: Recent Labs Component Name 06/17/23 0654 06/16/23 0251 06/15/23 0633 BUN 10 9 7 CREATININE 0.44* 0.47* 0.47* NA 139 141 144 POTASSIUM 4.8* 4.6* 4.6* CL 108* 107 108* CO2 25 26 27 GLUCOSE 103 83 105 CALCIUM 9.3 9.6 9.9 PROT 7.0 7.4 7.4 ALB 2.6* 2.7* 2.7* TBILI 0.2 0.2 0.2 ALKPHOS 90 79 87 ALT 22 19 15 AST 24 23 22 ANIONGAP 6 8 9 BCR 23 19 15 OSMOLALITY 287 290 296* AGRATIO 0.6* 0.6* 0.6* EGFR >90 >90 >90 Medications: Current Facility-Administered Medications Medication ??? 0.9% NaCl injection 3 mL And ??? 0.9% NaCl injection 1-10 mL ??? acetaminophen (Tylenol) tablet 1,000 mg ??? artificial tears ophthalmic ointment ??? aspirin chew tablet 81 mg ??? atorvastatin (Lipitor) tablet 40 mg ??? ceftolozane-tazobactam (Zerbaxa) 3,000 mg in 0.9% NaCl IV 100 mL IVPB ??? cloBAZam (Onfi) tablet 10 mg And ??? cloBAZam (Onfi) tablet 15 mg ??? famotidine (Pepcid) tablet 20 mg ??? guaiFENesin (Robitussin) solution 15 mL ??? heparin injection 5,000 Units ??? ibuprofen (Motrin) tablet 200 mg ??? levETIRAcetam (Keppra) tablet 2,000 mg ??? metoprolol tartrate IR (Lopressor) tablet 25 mg ??? valproic acid (Depakene) solution 500 mg ??? vancomycin (Vancocin) 1,000 mg in 0.9% NaCl IV 250 mL IVPB ??? vancomycin (Vancocin) IV dose per pharmacy Skin/Wound: trach Nutrition Care Process (1) Nutrition Diagnostic Statement: Inadequate protein-energy intake related to:: decreased ability to consume or tolerate adequate food and/or fluids due to illness as evidenced by:: oral intake less than .. (No TF ordered currently) Nutrition Diagnostic Statement Progress: Nutrition problem continues Nutrition Intervention: Enteral nutrition: Monitoring: TF, labs, meds, BM, weight Evaluation: Nutrition Goal: Total intake will meet estimated nutrient needs Nutrition Goal Timeframe: Throughout stay Nutrition Goal Progress: Continue with current goal ONI Silverio RD E[employer]OR OF SPORT MANAGEMENT * Leigh Mancia MD - 06/17/2023 6:47 AM CST Images from the original note were not included. [facility] Infectious Diseases Progress Note Admitted on: 06/09/2023 11:36 AM Hospital stay: Day 8 Room: 842/01 Attending: Gaurav Nogueira MD Reason for ID consultation: Possible PNA with MDR Pseudomonas and UTI Brief History and Hospital Course: (As per note By Dr. Owens) Bi Tabor is a 63 year old male with PMH of HTN, CVA, vascular dementia, epilepsy, chronic hypoxic respiratory failure s/p trach, who was admitted on 06/09/2023 for mental status change. With concern for UTI, he was started on ceftriaxone which was changed to cefepime when he had fever. UA showed >100 WBC and urine culture grew Pseudomonas (<10,000 colonies and yeast). CT C/A/P(06/09) showed bilateral GGO and bronchial wall thickening. ?? Patient no verbal, follows some commands but not able to write. Per his nurse, patient has thick and yellowish tracheal secretion. He has no decubitus ulcer. SUBJECTIVE & INTERVAL HISTORY: Patient seen and examined. Follows some commands. Afebrile, no leokocytosis. Inpatient Medications ??? 0.9% NaCl 3 mL Intracatheter q8h ??? acetaminophen 1,000 mg Enteral Tube TID ??? artificial tears Each Eye q8h ??? aspirin 81 mg Enteral Tube QDAY ??? atorvastatin 40 mg Enteral Tube AT BEDTIME ??? ceftolozane-tazobactam 3,000 mg Intravenous q8h ??? cloBAZam 10 mg Enteral Tube QAM And ??? cloBAZam 15 mg Enteral Tube QPM ??? famotidine 20 mg Enteral Tube BID ??? guaiFENesin 15 mL Enteral Tube Every 6 Hours (03,09,15,21) ??? heparin 5,000 Units Subcutaneous q8h ??? levETIRAcetam 2,000 mg Enteral Tube BID ??? metoprolol tartrate IR 25 mg Enteral Tube BID ??? valproic acid 500 mg Per G Tube 4X/day ??? vancomycin 1,000 mg Intravenous q12h ??? vancomycin (VANCOCIN) IV dose per pharmacy Does not apply DIRECTED PRN Medications ??? SALINE LOCK, INSERT AND MAINTAIN AND 0.9% NaCl AND 0.9% NaCl ??? ibuprofen OBJECTIVE: Vital Signs: BP 139/78 (BP Cuff Size: A) Pulse 82 Temp 98.3 ??F (36.8 ??C) (Axillary) Resp 18 Ht 1.778 m(5' 10 ) Wt 81.6 kg (180 lb) SpO2 96% Temp (24hrs), Av.2 ??F (36.8 ??C), Min:98 ??F (36.7 ??C), Max:98.3 ??F (36.8 ??C) I/O: Intake/Output Summary (Last 24 hours) at 06/17/2023 0647 Last data filed at 06/16/2023 2320 Gross per 24 hour Intake 50 ml Output 2600 ml Net -2550 ml Physical Exam: General: No distress HEENT: Anicteric sclerae Nose: No deformity Mouth and Throat: No thrush Neck: On trach collar Chest wall: No tenderness or deformity Lungs: Clear to auscultation bilaterally Heart: RRR, S1, S2 normal, no murmur Abdomen: Soft, non-distended, non-tender, +PEG Extremities: Left AKA Skin: No rash Neurologic: Follows some commands (difficult to do neuro exam) Lines: PIV Tracheostomy Jensen LABS CBC: Recent Labs Component Name 06/16/23 0251 06/15/23 0632 06/14/23 0745 WBC 5.8 5.3 5.1 RBC 4.15* 4.06* 4.16* HGB 13.1* 12.9* 13.3 HCT 39.1 38.2* 39.9 MCV 94.2 94.1 95.9 BMP: Recent Labs Component Name 06/16/23 02506/15/23 0633 06/14/23 0745 NA 141 144 144 CL 107 108* 110* CO2 26 27 24 BUN 9 7 8 CREATININE 0.47* 0.47* 0.45* ALB 2.7* 2.7* 2.7* PROT 7.4 7.4 6.9 estimated creatinine clearance is 168.3 mL/min (A) (by C-G formula based on SCr of 0.47 mg/dL (L)). Recent Labs Component Name 06/16/23 0251 06/15/23 0633 06/14/23 0745 ALT 19 15 14 AST 23 22 23 ALKPHOS 79 87 77 TBILI 0.2 0.2 0.3 MICROBIOLOGY: Blood culture 06/11/2023: 1/3 Growth of Staphylococcus pettenkoferi(Possible contaminant unless multiple culturesare positive for the same isolate.) 06/13/2023: x 2 No growth Urine culture 06/09/2023: 1,000-10,000 CFU/mL Pseudomonas aeruginosa?? 10,000-50,000 CFU/mL Yeast?? Pseudomonas aeruginosa JELLY Amikacin 8 ug/mL Susceptible Cefepime 8 ug/mL Susceptible Ceftazidime 4 ug/mL Susceptible Ciprofloxacin <=0.25 ug/mL Susceptible Gentamicin Resistant Meropenem <=0.25 ug/mL Susceptible Piperacillin-tazobactam 8 ug/mL Susceptible Tobramycin <=1 ug/mL Susceptible 06/11/2023: 10,000-50,000 CFU/mL Yeast?? Sputum culture (06/11/2023): Gram stain: >= 25 per low power field PMN, Light Gram-positive cocci Culture: Moderate Pseudomonas aeruginosa?? Moderate Staphylococcus aureus methicillin-resistant (MRSA)?? Rare normal oropharyngeal heidi MRSA DNA by PCR 06/11/2023: Detected?? Prior Microbiology Sputum culture (11/28/2022): Gram stain: >= 25 per low power field PMN, heavy GNB, heavy GPB Culture: Heavy Pseudomonas aeruginosa?? Moderate Acinetobacter baumannii??(MDRO, carbapenem resistant) Pseudomonas aeruginosa Acinetobacter baumannii JELLY JELLY Amikacin <=2 ug/mL Susceptible Ampicillin-sulbactam >=32 ug/mL Resistant Cefepime 2 ug/mL Susceptible >=64 ug/mL Resistant Ceftazidime 8 ug/mL Susceptible 16 ug/mL Intermediate Ciprofloxacin <=0.25 ug/mL Susceptible >=4 ug/mL Resistant Gentamicin <=1 ug/mL Susceptible <=1 ug/mL Susceptible Meropenem 0.5 ug/mL Susceptible >=16 ug/mL Resistant Piperacillin-tazobactam 32 ug/mL Intermediate >=128 ug/mL Resistant Tobramycin <=1 ug/mL Susceptible <=1 ug/mL Susceptible Trimethoprim-sulfamethoxazole <=20 ug/mL Susceptible Sputum culture (03/09/2023): Gram stain: >= 25 per low power field PMN, heavy GNB, heavy GPB Culture: Light Pseudomonas aeruginosa??(MDRO, carbapenem resistant) Light normal oropharyngeal heidi Pseudomonas aeruginosa KB JELLY Amikacin 16 ug/mL Susceptible Cefepime >=64 ug/mL Resistant Ceftazidime 16 ug/mL Intermediate Ciprofloxacin 2 ug/mL Resistant Meropenem 4 ug/mL Intermediate Piperacillin-tazobactam Intermediate Tobramycin 2 ug/mL Susceptible HISTOPATHOLOGY: None at this admission IMAGING & PROCEDURE: CT CHEST ABDOMEN PELVIS W CONT (06/09/2023): 1. Bilateral lower lob atelectasis as well as patchy groundglass opacities in bilateral lung and associated bronchial wall thickening, again findings are suggestive of aspiration/retained secretion. Small left pleural effusion. 2. A percutaneous gastrojejunostomy tube with a balloon in the stomach, again study anterior abdominal wall, and tip of the tube is in the proximal jejunum. No evidence of inflammatory changes of tube entrance. 3. No evidence of free air or free fluid in the abdomen and pelvis. ASSESSMENT & RECOMMENDATIONS: 63 year old male with PMH of HTN, CVA, vascular dementia, epilepsy, chronic hypoxic respiratory failure s/p trach, presenting on 06/09/2023 for mental status change. 1. Possible aspiration PNA. ?? CT and cultures reviewed. Patient has history of MDR Pseudomonas (cefepime- resistant and marycarmen intermediate) isolated from tracheal secretion. ?? 06/11/2023 culture of tracheal secretion growing MRSA and Pseudomonas aeruginosa; basted on susceptibilities, continue IV vancomycin and ceftolozane/tazobactam for 7 days, end on today.?? 2. Complicated UTI: Urine culture growing Pseudomonas aeruginosa, susceptibilities reviewed. On ceftolozane/tazobactam for now. 3. Blood culture 06/11/2023 growing of Staphylococcus pettenkoferi in 1 of 3 sets: Contaminant. 4. Renal function: Estimated Creatinine Clearance: 168.3 mL/min (A) (by C-G formula based on SCr of0.47 mg/dL (L)). Plan/Recommendations: - Discontinue IV vancomycin and ceftolozane/tazobactam today. Treatment completed. We will sign off. Thank you for allowing us to participate in the care of this patient. Please callwith any questions or concerns. Leigh Mancia M.D. Infectious Diseases Pager [phone] [employer] OF [employer]NAGEMENT * Marques Rea RN - 06/16/2023 5:00 PM CST Problem: Nutrient: Inadequate protein-energy intake Goal: Total intake will meet estimated nutrient needs Outcome: Progressing [employer] OF SPORT MANAGEMENT * Jennie Fernandes MD - 06/16/2023 1:46 PM CST Images from the original note were not included. [facility] INTERNAL MEDICINE PROGRESS NOTE Patient: Bi Tabor Sex: male Age: [age] year old Date of : 1960 Date of Admission: 06/09/2023 Date: 06/16/2023 LOS: 7 SUBJECTIVE Interval History: Headache. Hospital Course: Mr. Pat is a 63 year old gentleman??with PMH of epilepsy, chronic hypoxic respiratory failure s/p tracheostomy and PEG placement, HTN, HLD, PAD s/p L AKA previous CVAs and vascular dementia. He was admitted??for acute encephalopathy and being treated for PNA and also positive Urine culture for pseudomonas. Previous sputum cx with pseudomonas MDRO. ID following and recommended starting ceftolozane/tazobacta??(sensitive) and 06/13 added Vancomycin as??MRSA PCR positive OBJECTIVE Vital Signs: Vitals: 06/15/23 2334 06/16/23 0218 06/16/23 0352 06/16/23 0730 BP: 131/74 142/74 134/79 Pulse: 73 83 74 78 Resp: Temp: 98.1 ??F (36.7 ??C) 98.2 ??F (36.8 ??C) 98 ??F (36.7 ??C) SpO2: 97% 96% 98% 99% Weight: Height: Temp Min: 97.6 ??F (36.4 ??C) Max: 102.6 ??F (39.2 ??C), Pulse Min: 67 Max: 126, Resp Min: 9 Max: 31, BP Min: 105/67 Max: 169/82 Intake & Output: In: 1335 Out: 4150 [Urine:4150] Physical Exam: Gen: ?Alert, cooperative, no distress Head: ?Normocephalic, without obvious abnormality, atraumatic Eyes: ?Conjunctivae/corneas clear, EOMI Nose: ?Mucosa normal. No drainage. Throat: Moist mucous membranes Neck: ?No JVD, no carotid bruit, trachea midline Back: ?Symmetric, no curvature Resp: ?CTAB, no wheezes/crackles CV:?RRR, S1S2, No M/R/G Abd:?S/NT/ND, BS+, no bruits Ext: ?Left AKA. Pulses: 2+ DP B Skin: ?Skin color, texture, turgor normal. No rashes or lesions Neuro: No focal deficits?? Current Medications: Scheduled: ??? 0.9% NaCl 3 mL Intracatheter q8h ??? acetaminophen 1,000 mg Enteral Tube TID ??? artificial tears Each Eye q8h ??? aspirin 81 mg Enteral Tube QDAY ??? atorvastatin 40 mg Enteral Tube AT BEDTIME ??? ceftolozane-tazobactam 3,000 mg Intravenous q8h ??? cloBAZam 10 mg Enteral Tube QAM And ??? cloBAZam 15 mg Enteral Tube QPM ??? famotidine 20 mg Enteral Tube BID ??? guaiFENesin 15 mL Enteral Tube Every 6 Hours (03,09,15,21) ??? heparin 5,000 Units Subcutaneous q8h ??? levETIRAcetam 2,000 mg Enteral Tube BID ??? metoprolol tartrate IR 25 mg Enteral Tube BID ??? valproic acid 500 mg Per G Tube 4X/day ??? vancomycin 1,000 mg Intravenous q12h ??? vancomycin (VANCOCIN) IV dose per pharmacy Does not apply DIRECTED Continuous: PRN: ??? SALINE LOCK, INSERT AND MAINTAIN AND 0.9% NaCl AND 0.9% NaCl ??? ibuprofen Significant Lab Results: K 4.6, Cr 0.4. Microbiology: Sputum Culture 06/08: Light pseudomonas. . Persistent on repeated 06/11 and MRSA DNR + Urine Culture 06/08: ??Pseudomonads. Persistent on repeated 06/11. Blood Culture 06/11: Growth of Staphylococcus pettenkoferi. Blood culture 06/13:no growth to date. Susceptibility of sputum culture: ?? Imaging & Studies: Reviewed. ASSESSMENT & PLAN Sepsis due to pneumonia (CMS-HCC) (POA: Yes) History of CVA (cerebrovascular accident) (POA: Yes) Essential (primary) hypertension (POA: Yes) Severe protein-calorie malnutrition (CMS-HCC) (POA: Yes) Chronic respiratory failure with hypoxia (CMS-HCC) (POA: Yes) Pleural effusion (POA: Yes) Elevated lactic acid level (POA: Yes) Mr. Sharona Pat is a 63 year old gentleman with PMH of HTN, Epilepsy presented with acute encephalopathy being managed for Pneumonia and possible UTI due to pseudomonas (MDR). ? O??Sepsis due to UTI vs pneumonia?? O??AMS O Pneumonia: MDR pseudomonas + MRSA -Urinalysis positive for bacteria and urine culture grew pseudomonas.?? -Blood cultures were positive for gram positive cocci. Repeat blood cultures ordered. Sputum cultures and repeat urine cultures pending. -Pt has history of multiple MDR Pseudomonas infections -Continue vancomycin and ceftolozane/tazobactam?? -Infectious disease??following?? - Gram stain and culture of tracheal secretion.?? - UA and urine culture (from straight cath).?? - Blood cultures??06/13: Pending. - Previous ABx: ?Ceftraizone 1 g OD (06/09-06/10) - Current ABx: Zebraxa (Ceftolozane- Tazobactam) 3 g Q 8h (Start date 06/11) ??, Vancomycin 1,5 g Q12 hour (Start date 06.13) - Labs informed to perform??susceptibility for ceftolozane/tazobactam (Susceptible) and cefiderocol(not done yet). ?? O??Epilipsy?? -Continue home Keppra??2g BID,?and Valproic acid 500 mg QID.?? -Seizure precautions. -Fall precautions. ?? O Chronic Headache:?? - Having headache. - Tylenol 1g TID scheduled. - Depakote aids in headache prevention as preventive medication.? O??HTN -Continue Lopressor??25 mg BID.? O??HLD -Continue Lipitor??40mg OD .? Code:??Full.?? Diet:??PEGTube feeding?? Electrolytes:??Replete PRN PPx:??Heparin?? Access:PIV, trach tube, Jensen, GJ tube. Dispo:Medicine.? Anticipated level of care at discharge: [facility] - Skilled Facility ?? The above assessment and plan will be discussed with the attending. This note is not final until attested by attending physician. Jennie Fernandes MD Neurology Resident [facility] 06/16/2023 1:46 PM [employer] OF [employer]ORT MANAGEMENT Associated attestation - Gaurav Nogueira MD - 06/17/2023 3:22 PM PROFESSOR OF SPORT MANAGEMENT I have seen and examined the patient with the resident and I agree with the findings and plan of care as documented by the resident. Summary of plan: - ID recommendations appreciated re: antibiotic choice and duration - continue vancomycin and Cef/Eduar - pharmacy recommendations appreciated with vancomycin dosing Gaurav Nogueira MD * Clover Crowley RN - 06/16/2023 1:25 PM CST Care Coordination Progress Note Anticipated level of care at discharge: [facility] - Skilled Facility: Anticipated level of care provider: [facility] ([facility]): Anticipated Discharge Date: 06/22/23: Discharge Plan: Return to SNF when medically ready. Orientation Level: Oriented to Person: Family Support (Name and Phone): Extended Emergency Contact Information Primary Emergency Contact: Adriane Hliliard Mobile Relation: Sister Tray Drier needed? No Secondary Emergency Contact: Amarjit Tabor [facility] Relation: Brother Transportation at Discharge: Ambulance: READMISSION RISK SCORE is 21 at 1:26 PM 06/16/2023.: Name: Clover Crowley RN Case Manager [phone] [employer]NAG[employer] * Susan Connors, PharmD - 06/16/2023 9:07 AM CST ACTIVE CONSULTS TO PHARMACY/DISEASE STATE MONITORING Pharmacy Consult: Vancomycin ASSESSMENT/PLAN Indication: documented Pneumonia with Goal Level: AUC 400-600 and/or trough 12- 15 mcg/mL ID consulted/following: Yes Assessment: ?? Day of treatment: 5 ?? End of treatment date: 06/18/22 ?? Current dosing regimen: 1500 mg,Q12 hr ?? Renal assessment: considered stable at this time as patient has augmented renal function. ?? Micro evaluation: Recent Labs Component Name 06/11/23 1442 MRSADPCR Detected* o MRSA: Yes (PCR positive) o Other pertinent micro: Yes - Sputum culture 06/11 pseudomonas & MRSA - Blood cx 06/11: 1/2 CoNS (considered contaminant) - Blood cx 06/13: NGTD ? Level evaluation: See chart below Recent Labs Component Name 06/16/23 0251 06/15/23 0632 06/13/23 0845 11/30/22 1508 11/30/22 0617 09/10/22 0906 08/31/22 0923 07/04/22 0145 07/03/22 0405 07/02/22 0531 VANCORNDM - - - - - - - 22.0 26.1 32.1 VANCTROUGH 17.7 - - 13.1 - 14.1 - - - - VANCOPEAK - 36.7 14.1* - 24.9* - - - - - - = values in this interval not displayed. o Using steady state pharmacokinetic calculations, calculated AUC = 658 mg-hr/L and is supratherapeutic to goal Plan ? Dosing: o Will adjust dose to 1000 mg Q12 hr. This regimen calculates to provide estimated AUC of 439 mg-h/L and a trough of 12 mcg/mL ? Monitoring o No more levels needed as patient only has 2 more days of therapy o Continue to monitor patient???s renal function and cultures as needed. Billie SlaterD 06/16/2023 9:03 AM [facility] Vancomycin Guideline SUBJECTIVE/OBJECTIVE Bi Tabor is a 63 year old male. Height: 5' 10 (177.8 cm) Wt 81.6 kg (180 lb) Body mass index is 25.83 kg/m??. Recent Labs Component Name 06/16/23 0251 06/15/23 0633 06/15/23 0632 06/14/23 0745 06/13/23 0554 06/13/23 0553 CREATININE 0.47* 0.47* - 0.45* 0.47* - BUN 9 7 - 8 7 - WBC 5.8 - 5.3 5.1 - 4.4 @[id number]@ Dialysis Orders (72h ago, onward) None Vancomycin Administrations from JUL (last 72 hours) Date/Time Action Medication Dose Rate 06/16/23 0353 $ New Bag/Syringe vancomycin (Vancocin) 1,500 mg in 500 mL NaCl IVPB Premix 1,500 mg 333.33 mL/hr 06/15/23 1456 $ New Bag/Syringe vancomycin (Vancocin) 1,500 mg in 500 mL NaCl IVPB Premix 1,500 mg 333.33 mL/hr 06/15/23 0343 $ New Bag/Syringe vancomycin (Vancocin) 1,500 mg in 500 mL NaCl IVPB Premix 1,500 mg 333.33 mL/hr 06/14/23 2056 $ New Bag/Syringe vancomycin (Vancocin) 1,500 mg in 500 mL NaCl IVPB Premix 1,500 mg 333.33 mL/hr 06/14/23 0313 $ New Bag/Syringe vancomycin (Vancocin) 1,500 mg in 500 mL NaCl IVPB Premix 1,500 mg 333.33 mL/hr 06/13/23 1528 $ New Bag/Syringe vancomycin (Vancocin) 1,500 mg in 500 mL NaCl IVPB Premix 1,500 mg 333.33 mL/hr [employer]NAG[employer] * Yayo Arauz RCP - 06/16/2023 2:20 AM CST Pt self decannulated! 5 bivona cuffed inserted. 06/16/23217 Patient Verification Patient Identified: By Identification Arm Band Trach Bivona Placement Date/Time: 06/16/23216 Brand: (c) Bivona Cuff Type: Water (Bivona) Procedure Tolerance:Well Trach Status Secured;Open/Patent Current Trach size 5 Trach Site Assessment Clean, Dry;Cleansed and Dried Trach Dressing Type Gauze Trach Dressing Status Dry;Clean;Intact;Changed Trach Dressing Intervention Changed Trach Inner Cannula Care No inner cannula Trach Ties Assessment Clean, Dry, Intact;Changed;Secure Cuff pressure 0 cm H2O Airway Emergency Supplies Available Extra Trach (same size);Extra Trach (size smaller);Obturator;Resuscitation Bag with mask;Resuscitation Bag w/PEEP valve;Suction Device;Emergency Trach Equipment Verified Trach Handoff Report at bedside Yes- Report at bedside Airway Care/VAE HOB between 30-45 degrees Yes Suctioned? Yes Suction Mode Trach Secretion Consistency Thick Secretion Color White;Yellow Secretions Amount Copious Hyperoxygenated prior to suctioning? Yes Mechanical Ventilation Mode $ O2 DEVICE Humidified;Mask - Tracheal/Trach Collar $ RT Device Flow 6 liters/min Medical Gases O2 % (FiO2) 28 % Vitals Pulse 83 SpO2 96 % Safety & Alarms Airway Emergency Supplies Available Obturator;Resuscitation Bag;Resuscitation Bag with PEEP Valve;Appropriate Size Mask;Extra Trach Same Size;Extra Trach Smaller Size Humidity Source Active Humidity H2O Bag Changed [employer]NAG[employer] * Evy Hensley - 06/16/2023 1:53 AM CST Rapid Response Stencil Typist received an ASCOM alert for a Rapid Response on this Pt. Stencil Typist responded to the unit at her earliest opportunity. Pt was being attended to by rapid team.Team worked to secure Pt's airway, as he is on a trach. Stencil Typist did not see signs of distress fromPt. No family was present. Stencil Typist remained in the hallway, praying silently and offering support to staff. Pastoral care is available 20/12. Please call [phone] if requested or needed. 842/01 [employer]NAGEMENT * Nanci Hawk RN - 06/16/2023 1:02 AM CST Problem: Nutrient: Inadequate protein-energy intake Goal: Total intake will meet estimated nutrient needs 06/16/2023101 by Nanci Hawk RN Outcome: Progressing 06/16/2023101 by Nanci Hawk RN Outcome: Progressing 06/16/2023 002 by Nanci Hawk RN Outcome: Progressing Problem: Fall Risk Goal: Fall risk and fall related injury risk are minimized (interventions related to the fall risk can be found in the flowsheet documentation) 06/16/2023101 by Nanci Hawk RN Outcome: Progressing 06/16/2023 010 by Nanci Hawk RN Outcome: Progressing 06/16/2023 002 by Nanci Hawk RN Outcome: Progressing Problem: Pain/Discomfort Goal: Patient exhibits reduced pain/discomfort as evidenced by pain scores 06/16/2023101 by Nanci Hawk RN Outcome: Progressing 06/16/2023101 by Nanci Hawk RN Outcome: Progressing 06/16/2023 002 by Nanci Hawk RN Outcome: Progressing Goal: Patient uses pharmacological and non-pharmacological pain management strategies. 06/16/2023101 by Nanci Hawk RN Outcome: Progressing 06/16/2023101 by Nanci Hawk RN Outcome: Progressing 06/16/2023 002 by Nanci Hawk RN Outcome: Progressing Goal: Patient verbalizes acceptable level of pain relief and ability to engage in desired activity. 06/16/2023101 by Nanci Hawk RN Outcome: Progressing 06/16/2023 010 by Nanci Hawk RN Outcome: Progressing 06/16/2023 0021 by Nanci Hawk RN Outcome: Progressing Problem: Skin Integrity Goal: Skin integrity is maintained or improved 06/16/2023 0102 by Nanci Hawk RN Outcome: Progressing 06/16/2023 0102 by Nanci Hawk RN Outcome: Progressing 06/16/2023 0021 by Nanci Hawk RN Outcome: Progressing [employer] * Nanci Hawk RN - 06/16/2023 12:21 AM CST Problem: Nutrient: Inadequate protein-energy intake Goal: Total intake will meet estimated nutrient needs Outcome: Progressing Problem: Fall Risk Goal: Fall risk and [...] integrity is maintained or improved Outcome: Progressing [employer] * Marques Rea RN - 06/15/2023 4:00 PM CST Problem: Nutrient: Inadequate protein-energy intake Goal: Total intake will meet estimated nutrient needs 06/15/2023 1930 by Marques Rea RN Outcome: Progressing 06/15/2023 1141 by Marques Rea RN Outcome: Progressing [employer] * Jennie Fernandes MD - 06/15/2023 2:10 PM CST Images from the original note were not included. [facility] INTERNAL MEDICINE PROGRESS NOTE Patient: Bi Tabor Sex: male Age: [age] year old Date of : 1960 Date of Admission: 06/09/2023 Date: 06/15/2023 LOS: 6 SUBJECTIVE Interval History: Patient still improving and communicating well. Hospital Course: Mr. Pat is a 63 year old gentleman with PMH of epilepsy, chronic hypoxic respiratory failure s/p tracheostomy and PEG placement, HTN, HLD, PAD s/p L AKA previous CVAs and vascular dementia. He was admitted for acute encephalopathy and being treated for PNA and also positive Urine culture for pseudomonas. Previous sputum cx with pseudomonas MRDO. ID following and recommended starting ceftolozane/tazobacta (sensitive) and 06/13 added Vancomycin as MRSA PCR positive. OBJECTIVE Vital Signs: Vitals: 06/14/23 1950 06/14/23 2307 06/15/23 0450 06/15/23 0801 BP: 129/76 132/84 Pulse: 84 81 79 Resp: 18 16 Temp: 98.3 ??F (36.8 ??C) 98.1 ??F (36.7 ??C) SpO2: 94% 91% 97% 99% Weight: Height: Temp Min: 97.6 ??F (36.4 ??C) Max: 102.6 ??F (39.2 ??C), Pulse Min: 71 Max: 126, Resp Min: 9 Max: 31, BP Min: 105/67 Max: 169/82 Intake & Output: In: 1740 Out: 4850 [Urine:4850] Physical Exam: Physical Exam: Gen: Alert, cooperative, no distress Head: Normocephalic, without obvious abnormality, atraumatic Eyes: Conjunctivae/corneas clear, EOMI Nose: Mucosa normal. No drainage. Throat: Moist mucous membranes Neck: No JVD, no carotid bruit, trachea midline Back: Symmetric, no curvature Resp: CTAB, no wheezes/crackles CV: RRR, S1S2, No M/R/G Abd: S/NT/ND, BS+, no bruits Ext: Left AKA. Pulses: 2+ DP B Skin: Skin color, texture, turgor normal. No rashes or lesions Neuro: No focal deficits Current Medications: Scheduled: ??? 0.9% NaCl 3 mL Intracatheter q8h ??? acetaminophen 1,000 mg Enteral Tube TID ??? artificial tears Each Eye q8h ??? aspirin 81 mg Enteral Tube QDAY ??? atorvastatin 40 mg Enteral Tube AT BEDTIME ??? ceftolozane-tazobactam 3,000 mg Intravenous q8h ??? cloBAZam 10 mg Enteral Tube QAM And ??? cloBAZam 15 mg Enteral Tube QPM ??? famotidine 20 mg Enteral Tube BID ??? guaiFENesin 15 mL Enteral Tube Every 6 Hours (03,09,15,21) ??? heparin 5,000 Units Subcutaneous q8h ??? levETIRAcetam 2,000 mg Enteral Tube BID ??? metoprolol tartrate IR 25 mg Enteral Tube BID ??? valproic acid 500 mg Per G Tube 4X/day ??? vancomycin 1,500 mg Intravenous q12h ??? vancomycin (VANCOCIN) IV dose per pharmacy Does not apply DIRECTED Continuous: PRN: ??? SALINE LOCK, INSERT AND MAINTAIN AND 0.9% NaCl AND 0.9% NaCl Significant Lab Results: Plt 116, P 2, K 4.9 Microbiology: Sputum Culture 06/08: Light pseudomonas. . Persistent on repeated 06/11 and MRSA DNR + Urine Culture 06/08: Pseudomonads. Persistent on repeated 06/11. Blood Culture 06/11: Growth of Staphylococcus pettenkoferi. Blood culture 06/13:no growth to date. Susceptibility of sputum culture: Imaging & Studies: Reviewed. ASSESSMENT & PLAN Sepsis due to pneumonia (CMS-HCC) (POA: Yes) History of CVA (cerebrovascular accident) (POA: Yes) Essential (primary) hypertension (POA: Yes) Severe protein-calorie malnutrition (CMS-HCC) (POA: Yes) Chronic respiratory failure with hypoxia (CMS-HCC) (POA: Yes) Pleural effusion (POA: Yes) Elevated lactic acid level (POA: Yes) Mr. Sharona Pat is a 63 year old gentleman with PMH of HTN, Epilepsy presented with acute encephalopathy being managed for Pneumonia and possible UTI due to pseudomonas. ? O Sepsis due to UTI vs pneumonia O AMS O Pneumonia: MDR pseudomonas + MRSA -Urinalysis positive for bacteria and urine culture grew pseudomonas.?? -Blood cultures were positive for gram positive cocci. Repeat blood cultures ordered. Sputum cultures and repeat urine cultures pending. -Pt has history of multiple MDR Pseudomonas infections -Continue vancomycin and ceftolozane/tazobactam?? -Infectious disease??following?? - Gram stain and culture of tracheal secretion. - UA and urine culture (from straight cath). - Blood cultures 06/13: Pending. - Previous ABx: Ceftraizone 1 g OD (06/09-06/10) - Current ABx: Zebraxa (Ceftolozane- Tazobactam) 3 g Q 8h (Start date 06/11) , Vancomycin 1,5 g Q 12 hour (Start date 06.13) - Labs informed to perform susceptibility for ceftolozane/tazobactam (Susceptible) and cefiderocol (not done yet). ?? O Epilipsy?? -Continue home Keppra 2g BID, and Valproic acid 500 mg QID. -Seizure precautions. -Fall precautions. ?? O Chronic Headache: - No headache currently. - Depakote aids in headache prevention as preventive medication. ?? O HTN -Continue Lopressor 25 mg BID. ?? O HLD -Continue Lipitor 40mg OD . ? Code: Full. Diet: PEGTube feeding?? Electrolytes: Replete PRN PPx: Heparin?? Access:PIV, trach tube, Jensen, GJ tube. Dispo:Medicine. Anticipated level of care at discharge: [facility] - Skilled Facility The above assessment and plan will be discussed with the attending. This note is not final until attested by attending physician. Jennie Fernandes MD Neurology Resident [facility] 06/15/2023 2:10 PM [employer] Associated attestation - Gaurav Nogueira MD - 06/15/2023 4:33 PM [employer]NAGEMENT I have seen and examined the patient with the resident and I agree with the findings and plan of care as documented by the resident. Summary of plan: - follow susceptibilities on cultures - continue current vancomycin and cef/eduar - final antibiotics plan pending susceptibilities and final ID recommendations Gaurav Nogueira MD * Gaurav Juarez, INTERVENTIONAL PAIN PHYSICIAN - 06/15/2023 12:34 PM CST Care Coordination Progress Note Anticipated level of care at discharge: [facility] - Skilled Facility: Anticipated level of care provider: [facility] (formerly [facility] and [facility]): Anticipated Discharge Date: 06/18/23: Discharge Plan: SW following for this pt to return to SNF once medically ready. Orientation Level: Oriented to Person;Oriented to Place;Disoriented to Time;Disoriented to Situation: Family Support (Name and Phone): Extended Emergency Contact Information Primary Emergency Contact: Adriane Hilliard Mobile Relation: Sister Tray Drier needed? No Secondary Emergency Contact: Amarjit Tabor [facility] Relation: Brother Transportation at Discharge: Ambulance: READMISSION RISK SCORE is 22 at 12:34 PM 06/15/2023.: Name: CLARITA Ram [employer] * Clover Crowley, RN - 06/15/2023 12:18 PM CST Care Coordination Progress Note Anticipated level of care at discharge: [facility] - Skilled Facility: Anticipated level of care provider: [facility] (formerly [facility] and [facility]): Anticipated Discharge Date: 06/18/23: Discharge Plan: Return to SNF when medically ready. SW following for placement. Orientation Level: Oriented to Person;Oriented to Place;Disoriented to Time;Disoriented to Situation: Family Support (Name and Phone): Extended Emergency Contact Information Primary Emergency Contact: Adriane Hilliard Mobile Relation: Sister Tray Drier needed? No Secondary Emergency Contact: Amarjit Tabor [facility] Relation: Brother Transportation at Discharge: Ambulance: READMISSION RISK SCORE is 22 at 12:18 PM 06/15/2023.: Name: Clover Crowley welfare case worker [phone] [employer] * Marques Rea RN - 06/15/2023 11:41 AM CST Problem: Nutrient: Inadequate protein-energy intake Goal: Total intake will meet estimated nutrient needs Outcome: Progressing [employer] * Jennie Fernandes MD - 06/14/2023 3:15 PM CST [facility] INTERNAL MEDICINE PROGRESS NOTE Patient: Bi Tabor Sex: male Age: [age] year old Date of : 1960 Date of Admission: 06/09/2023 Date: 06/13/2023 LOS: 4 SUBJECTIVE Interval History: Communicating, still has headache. Hospital Course: Mr. Pat is a 63 year old gentleman with PMH of epilepsy, chronic hypoxic respiratory failure s/p tracheostomy and PEG placement, HTN, HLD, PAD s/p L AKA previous CVAs and vascular dementia. He was admitted for acute encephalopathy and being treated for PNA and also positive Urine culture for pseudomonas. Previous sputum cx with pseudomonas MRDO. ID following and recommended starting ceftolozane/tazobacta and 06/13 added Vancomycin as MRSA PCR positive. OBJECTIVE Vital Signs: Vitals: 06/13/23 1040 06/13/23 1152 06/13/23 1433 06/13/23 1756 BP: 116/78 Pulse: 106 87 90 73 Resp: 20 18 20 20 Temp: 98.7 ??F (37.1 ??C) SpO2: 100% 100% 100% 100% Weight: Height: Temp Min: 97.6 ??F (36.4 ??C) Max: 102.6 ??F (39.2 ??C), Pulse Min: 73 Max: 126, Resp Min: 9 Max: 31, BP Min: 105/67 Max: 165/87 Intake & Output: In: 5059 Out: 1850 [Urine:1850] Physical Exam: Gen: Alert, cooperative, no distress Head: Normocephalic, without obvious abnormality, atraumatic Eyes: Conjunctivae/corneas clear, EOMI Nose: Mucosa normal. No drainage. Throat: Moist mucous membranes Neck: No JVD, no carotid bruit, trachea midline Back: Symmetric, no curvature Resp: CTAB, no wheezes/crackles CV: RRR, S1S2, No M/R/G Abd: S/NT/ND, BS+, no bruits Ext: No clubbing, cyanosis, edema; no skin changes consistent with venous stasis or arterial disease Pulses: 2+ DP B Skin: Skin color, texture, turgor normal. No rashes or lesions Neuro: No focal deficits Current Medications: Scheduled: ??? 0.9% NaCl 3 mL Intracatheter q8h ??? acetaminophen 1,000 mg Enteral Tube TID ??? artificial tears Each Eye q8h ??? aspirin 81 mg Enteral Tube QDAY ??? atorvastatin 40 mg Enteral Tube AT BEDTIME ??? ceftolozane-tazobactam 3,000 mg Intravenous q8h ??? cloBAZam 10 mg Enteral Tube QAM And ??? cloBAZam 15 mg Enteral Tube QPM ??? famotidine 20 mg Enteral Tube BID ??? guaiFENesin 15 mL Enteral Tube Every 6 Hours (03,09,15,21) ??? heparin 5,000 Units Subcutaneous q8h ??? levETIRAcetam 2,000 mg Enteral Tube BID ??? metoprolol tartrate IR 25 mg Enteral Tube BID ??? valproic acid 500 mg Per G Tube 4X/day ??? vancomycin 1,500 mg Intravenous q12h ??? vancomycin (VANCOCIN) IV dose per pharmacy Does not apply DIRECTED Continuous: PRN: ??? SALINE LOCK, INSERT AND MAINTAIN AND 0.9% NaCl AND 0.9% NaCl Significant Lab Results: P 1.8, Hb 11.8 Microbiology: Sputum Culture 06/08: Light pseudomonas. . Persistent on repeated 06/11 and MRSA DNR + Urine Culture 06/08: Pseudomonads. Persistent on repeated 06/11. Blood Culture 06/11: Growth of Staphylococcus pettenkoferi. Blood culture 06/13: In-process. Imaging & Studies: Reviewed. ASSESSMENT & PLAN Sepsis due to pneumonia (CMS-HCC) (POA: Yes) History of CVA (cerebrovascular accident) (POA: Yes) Essential (primary) hypertension (POA: Yes) Severe protein-calorie malnutrition (CMS-HCC) (POA: Yes) Chronic respiratory failure with hypoxia (CMS-HCC) (POA: Yes) Pleural effusion (POA: Yes) Elevated lactic acid level (POA: Yes) Mr. Sharona Pat is a 63 year old gentleman with PMH of HTN, Epilepsy presented with acute encephalopathy being managed for Pneumonia and possible EARNEST due to pseudomonas. O Sepsis due to UTI vs pneumonia O AMS O UTI O Possible pneumonia?? -Urinalysis positive for bacteria and urine culture grew pseudomonas.?? -Blood cultures were positive for gram positive cocci. Repeat blood cultures ordered. Sputum cultures and repeat urine cultures pending. -Pt has history of multiple MDR Pseudomonas infections -Continue vancomycin and ceftolozane/tazobactam -Infectious disease??following?? - Gram stain and culture of tracheal secretion. - UA and urine culture (from straight cath). - Blood cultures 06/13: Pending. - Previous ABx: Ceftraizone 1 g OD (06/09-06/10) - Current ABx: Zebraxa (Ceftolozane- Tazobactam) 3 g Q 8h (Start date 06/11) , Vancomycin 1,5 g Q 12 hour (Start date 06.13) - Labs informed to perform susceptibility for ceftolozane/tazobactam and cefiderocol. O Epilipsy?? -Continue home Keppra 2g BID, and Valproic acid 500 mg QID. -Seizure precautions. -Fall precautions. ?? O Headache: -Pt stated he had a OROPEZA that persisted despite being given 1000 mg of acetaminophen. -Ordered one time dose ??of 400 mg ibuprofen. - Depakote aids in headache prevention as preventive medication. ?? O HTN -Continue Lopressor 25 mg BID. ?? O HLD -Continue Lipitor 40mg OD . ?? Code: Full. Diet: PEGTube feeding?? Electrolytes: Replete PRN PPx: Heparin?? Access:PIV. Dispo:Medicine. Anticipated level of care at discharge: [facility] - Skilled Facility ?? The above assessment and plan will be discussed with the attending. This note is not final until attested by attending physician. Jennie Fernandes MD Neurology Resident [facility] 06/13/2023 9:12 PM [employer] Associated attestation - Gaurav Nogueira MD - 06/15/2023 4:32 PM [employer]NAGEMENT I have seen and examined the patient with the resident and I agree with the findings and plan of care as documented by the resident. Summary of plan: - sputum growing MRSA and Pseudomonas - request lab send susc for Cef/Deuar and cefiderocol per ID recommendations - mental status improving, speech more clear - continue current vancomycin and cef/eduar Gaurav Nogueira MD * Hansa Medina RN - 06/14/2023 12:50 PM CST Problem: Fall Risk Goal: Fall risk and [...] to engage in desired activity. Outcome: Progressing [employer] * Leigh Mancia MD - 06/14/2023 7:41 AM CST [facility] Infectious Diseases Progress Note Admitted on: 06/09/2023 11:36 AM Hospital stay: Day 5 Room: [facility] Attending: Gaurav Nogueira MD Reason for ID consultation: Possible PNA with MDR Pseudomonas and UTI Brief History and Hospital Course: (As per note By Dr. Owens) Bi Tabor is a 63 year old male with PMH of HTN, CVA, vascular dementia, epilepsy, chronic hypoxic respiratory failure s/p trach, who was admitted on 06/09/2023 for mental status change. With concern for UTI, he was started on ceftriaxone which was changed to cefepime when he had fever. UA showed >100 WBC and urine culture grew Pseudomonas (<10,000 colonies and yeast). CT C/A/P(06/09) showed bilateral GGO and bronchial wall thickening. ?? Patient no verbal, follows some commands but not able to write. Per his nurse, patient has thick and yellowish tracheal secretion. He has no decubitus ulcer. SUBJECTIVE & INTERVAL HISTORY: Patient seen and examined. Follows some commands. Afebrile, no leokocytosis. Inpatient Medications ??? 0.9% NaCl 3 mL Intracatheter q8h ??? acetaminophen 1,000 mg Enteral Tube TID ??? artificial tears Each Eye q8h ??? aspirin 81 mg Enteral Tube QDAY ??? atorvastatin 40 mg Enteral Tube AT BEDTIME ??? ceftolozane-tazobactam 3,000 mg Intravenous q8h ??? cloBAZam 10 mg Enteral Tube QAM And ??? cloBAZam 15 mg Enteral Tube QPM ??? famotidine 20 mg Enteral Tube BID ??? guaiFENesin 15 mL Enteral Tube Every 6 Hours (03,09,15,21) ??? heparin 5,000 Units Subcutaneous q8h ??? levETIRAcetam 2,000 mg Enteral Tube BID ??? metoprolol tartrate IR 25 mg Enteral Tube BID ??? valproic acid 500 mg Per G Tube 4X/day ??? vancomycin 1,500 mg Intravenous q12h ??? vancomycin (VANCOCIN) IV dose per pharmacy Does not apply DIRECTED PRN Medications ??? SALINE LOCK, INSERT AND MAINTAIN AND 0.9% NaCl AND 0.9% NaCl OBJECTIVE: Vital Signs: BP 152/78 Pulse 78 Temp 98 ??F (36.7 ??C) Resp 20 Ht 1.778 m (5' 10 ) Wt 81.6 kg (180 lb) SpO2 97% Temp (24hrs), Av.6 ??F (37 ??C), Min:98 ??F (36.7 ??C), Max:99.1 ??F (37.3 ??C) I/O: Intake/Output Summary (Last 24 hours) at 06/14/2023 0741 Last data filed at 06/14/2023 0526 Gross per 24 hour Intake 4059 ml Output 2450 ml Net 1609 ml Physical Exam: General: No distress HEENT: Anicteric sclerae Nose: No deformity Mouth and Throat: No thrush Neck: On trach collar Chest wall: No tenderness or deformity Lungs: Clear to auscultation bilaterally Heart: RRR, S1, S2 normal, no murmur Abdomen: Soft, non-distended, non-tender, +BS Extremities: Left AKA Skin: No rash Neurologic: Follows some commands (difficult to do neuro exam) Lines: PIV Tracheostomy Jensen LABS CBC: Recent Labs Component Name 06/13/23 0553 06/12/23 1714 06/10/23 0514 WBC 4.4 5.5 6.7 RBC 3.73* 3.93* 4.39 HGB 11.8* 12.7* 14.2 HCT 36.6* 37.1* 40.9 MCV 98.1* 94.4 93.2 BMP: Recent Labs Component Name 06/13/23 0554 06/12/23 1714 06/09/23 1314 NA 140 140 141 CL 109* 109* 106 CO2 24 24 27 BUN 7 11 14 CREATININE 0.47* 0.45* 0.63* ALB 2.5* 2.5* 3.3* PROT 6.3 6.5 7.3 estimated creatinine clearance is 168.3 mL/min (A) (by C-G formula based on SCr of 0.47 mg/dL (L)). Recent Labs Component Name 06/13/23 0554 06/12/23 1714 06/09/23 1314 ALT 11 11 11 AST 20 19 19 ALKPHOS 69 70 96 TBILI 0.3 0.2 0.3 MICROBIOLOGY: Blood culture 06/11/2023: 1/3 Growth of Staphylococcus pettenkoferi 06/13/2023: x 2 No growth 24 hours Urine culture 06/09/2023: 1,000-10,000 CFU/mL Pseudomonas aeruginosa?? 10,000-50,000 CFU/mL Yeast?? Pseudomonas aeruginosa JELLY Amikacin 8 ug/mL Susceptible Cefepime 8 ug/mL Susceptible Ceftazidime 4 ug/mL Susceptible Ciprofloxacin <=0.25 ug/mL Susceptible Gentamicin Resistant Meropenem <=0.25 ug/mL Susceptible Piperacillin-tazobactam 8 ug/mL Susceptible Tobramycin <=1 ug/mL Susceptible 06/11/2023: 10,000-50,000 CFU/mL Yeast?? Sputum culture (06/11/2023): Gram stain: >= 25 per low power field PMN, Light Gram-positive cocci Culture: Moderate Pseudomonas aeruginosa?? Moderate Staphylococcus aureus methicillin-resistant (MRSA)?? Rare normal oropharyngeal heidi MRSA DNA by PCR 06/11/2023: Detected?? Prior Microbiology Sputum culture (11/28/2022): Gram stain: >= 25 per low power field PMN, heavy GNB, heavy GPB Culture: Heavy Pseudomonas aeruginosa?? Moderate Acinetobacter baumannii??(MDRO, carbapenem resistant) Pseudomonas aeruginosa Acinetobacter baumannii JELLY JELLY Amikacin <=2 ug/mL Susceptible Ampicillin-sulbactam >=32 ug/mL Resistant Cefepime 2 ug/mL Susceptible >=64 ug/mL Resistant Ceftazidime 8 ug/mL Susceptible 16 ug/mL Intermediate Ciprofloxacin <=0.25 ug/mL Susceptible >=4 ug/mL Resistant Gentamicin <=1 ug/mL Susceptible <=1 ug/mL Susceptible Meropenem 0.5 ug/mL Susceptible >=16 ug/mL Resistant Piperacillin-tazobactam 32 ug/mL Intermediate >=128 ug/mL Resistant Tobramycin <=1 ug/mL Susceptible <=1 ug/mL Susceptible Trimethoprim-sulfamethoxazole <=20 ug/mL Susceptible Sputum culture (03/09/2023): Gram stain: >= 25 per low power field PMN, heavy GNB, heavy GPB Culture: Light Pseudomonas aeruginosa??(MDRO, carbapenem resistant) Light normal oropharyngeal heidi Pseudomonas aeruginosa KB JELLY Amikacin 16 ug/mL Susceptible Cefepime >=64 ug/mL Resistant Ceftazidime 16 ug/mL Intermediate Ciprofloxacin 2 ug/mL Resistant Meropenem 4 ug/mL Intermediate Piperacillin-tazobactam Intermediate Tobramycin 2 ug/mL Susceptible HISTOPATHOLOGY: None at this admission IMAGING & PROCEDURE: CT CHEST ABDOMEN PELVIS W CONT (06/09/2023): 1. Bilateral lower lob atelectasis as well as patchy groundglass opacities in bilateral lung and associated bronchial wall thickening, again findings are suggestive of aspiration/retained secretion. Small left pleural effusion. 2. A percutaneous gastrojejunostomy tube with a balloon in the stomach, again study anterior abdominal wall, and tip of the tube is in the proximal jejunum. No evidence of inflammatory changes of tube entrance. 3. No evidence of free air or free fluid in the abdomen and pelvis. ASSESSMENT & RECOMMENDATIONS: 63 year old male with PMH of HTN, CVA, vascular dementia, epilepsy, chronic hypoxic respiratory failure s/p trach, presenting on 06/09/2023 for mental status change. 1. Possible aspiration PNA. CT and cultures reviewed. ?? 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 ?? 06/11/2023 culture of tracheal secretion now growing moderate Pseudomonas aeruginosa and MRSA, follow susceptibilities. Continue ceftolozane/tazobactam for now.?? 2. Complicated UTI: Urine culture growing Pseudomonas aeruginosa, susceptibilities reviewed. On ceftolozane/tazobactam for now. 3. Blood culture 06/11/2023 growing of Staphylococcus pettenkoferi in 1 of 3 sets: Contaminant. 4. Renal function: Estimated Creatinine Clearance: 175.7 mL/min (A) (by C-G formula based on SCr of0.45 mg/dL (L)). Plan/Recommendations: - Follow Blood culture from 06/13/2023 until final. - Follow sputum culture Pseudomonas aeruginosa susceptibilities - Continue ceftolozane/tazobactam 3 g IV q8h for now. We will continue to follow and monitor the patient. Thank you for allowing us to participate in thecare of this patient. Please call with any questions or concerns. Leigh Mancia M.D. Infectious Diseases Pager [phone] [employer] * Renetta Eden RN - 06/13/2023 5:14 PM CST Problem: Nutrient: Inadequate protein-energy intake Goal: Total intake will meet estimated nutrient needs Outcome: Progressing Problem: Fall Risk Goal: Fall risk and [...] integrity is maintained or improved Outcome: Progressing [employer] * Mary Wells - 06/13/2023 2:36 PM CST Images from the original note were not included. Internal Medicine Progress Note 06/13/2023 2:36 PM Patient Name: Bi Tabor (63 year old) Room Number: 842/01 Attending: Gaurav Nogueira MD Hospital Day: 4 Subjective: Hospital course: 63 y.o male with PMH of epilepsy, chronic hypoxic respiratory failure s/p tracheostomy, HTN, HLD, PAD s/p L AKA previous CVAs and vascular dementia. He was admitted due to AMS likely secondary to UTI. Interval history: -Pt more aware today. Was able to say that he had a headache -HR improved, but still slightly tachycardic at times -Pt's sister was updated on patient's status and plan for treatment Objective: Patient Vitals for the past 6 hrs: Temp Pulse Resp BP 06/13/23 1433 -- 90 20 -- 06/13/23 1152 98.7 ??F (37.1 ??C) 87 18 116/78 06/13/23 1040 -- 106 20 -- Intake/Output Summary (Last 24 hours) at 06/13/2023 1436 Last data filed at 06/13/2023 1422 Gross per 24 hour Intake 4959 ml Output 1850 ml Net 3109 ml -Physical Exam: General - NAD, afebrile, non-cachectic, A&O x3 HEENT - NC/AT, PERRL, EOMI, clear conjunctivae, throat without erythema or exudate, moist mucous membranes Neck - Supple, no lymphadenopathy, no JVD Chest - CTAB, no crackles or wheezes bilaterally CV - RRR, no murmurs, radial and DP pulses 4/4, good capillary refill Abdomen - Soft, NT/ND, +BS, no organomegaly Musculoskeletal - Moves all four extremities Extremities - L AKA No clubbing, no cyanosis, no edema Skin - No rashes, lesions or jaundice Neurologic - CN II-XII grossly intact. Motor power: RUE (5/5), RLE (5/5), LUE (5/5) Psych - Appropriate mood and affect Medications ?? SCHEDULED MEDICATIONS: ?? And ?? 0.9% NaCl injection 3 mL, Intracatheter, q8h ?? acetaminophen (Tylenol) tablet 1,000 mg, Enteral Tube, TID ?? artificial tears ophthalmic ointment, Each Eye, q8h ?? aspirin chew tablet 81 mg, Enteral Tube, QDAY ?? atorvastatin (Lipitor) tablet 40 mg, Enteral Tube, AT BEDTIME ?? ceftolozane-tazobactam (Zerbaxa) 3,000 mg in 0.9% NaCl IV 100 mL IVPB, Intravenous, q8h ?? cloBAZam (Onfi) tablet 10 mg, Enteral Tube, QAM ?? cloBAZam (Onfi) tablet 15 mg, Enteral Tube, QPM ?? famotidine (Pepcid) tablet 20 mg, Enteral Tube, BID ?? guaiFENesin (Robitussin) solution 15 mL, Enteral Tube, Every 6 Hours (03,09,15,) ?? heparin injection 5,000 Units, Subcutaneous, q8h ?? levETIRAcetam (Keppra) tablet 2,000 mg, Enteral Tube, BID ?? metoprolol tartrate IR (Lopressor) tablet 25 mg, Enteral Tube, BID ?? valproic acid (Depakene) solution 500 mg, Per G Tube, 4X/day ?? vancomycin (Vancocin) 1,500 mg in 500 mL NaCl IVPB Premix, Intravenous, q12h ?? vancomycin (Vancocin) IV dose per pharmacy, Does not apply, DIRECTED ?? [COMPLETED] ibuprofen (Motrin) tablet 400 mg, Enteral Tube, Once ?? [COMPLETED] potassium - sodium phosphates (Phos-Nak) powder 1 packet, Enteral Tube, q4h ?? CONTINUOUS MEDICATIONS: ?? PRN MEDICATIONS: ?? 0.9% NaCl injection 1-10 mL, Intracatheter, PRN Data Review Recent Labs Component Name 06/13/23 0553 06/12/23 1714 06/10/23 0514 06/09/23 1314 06/09/23 1314 02/28/23 0541 03/09/22 0135 03/08/22 1455 WBC 4.4 5.5 6.7 - 7.3 5.4 - 20.8* HGB 11.8* 12.7* 14.2 - 14.2 11.7* - 14.3 HCT 36.6* 37.1* 40.9 - 43.5 36.0 - 42.9 PLATELET - - - - - - - Occasional* PLTCOUNT - 79* - - 127* 160 - 211 - = values in this interval not displayed. Recent Labs Component Name 06/13/23 0554 POTASSIUM 4.7* CO2 24 BUN 7 CREATININE 0.47* CALCIUM 8.7 ALT 11 AST 20 GLUCOSE 106 Recent Labs Component Name 06/09/23 1314 02/24/23 1032 12/31/22 2053 INR 1.1 1.1 1.1 Microbiology: Microbiology Results (Displays last 21 days for this encounter ONLY) Procedure Component Value - Date/Time CULTURE BLOOD [[id number]] Collected: 06/13/23 0847 Lab Status: In process Specimen: Blood Peripheral Updated: 06/13/23 0850 CULTURE BLOOD [[id number]] Collected: 06/13/2346 Lab Status: In process Specimen: Blood Peripheral Updated: 06/13/23 0850 CULTURE BLOOD [[id number]] (Normal) Collected: 06/11/231753 Lab Status: Preliminary result Specimen: Blood Peripheral Updated: 06/12/23 2301 Culture No growth 24 hours CULTURE BLOOD [[id number]] (Abnormal) Collected: 06/11/231745 Lab Status: Preliminary result Specimen: Blood Peripheral Updated: 06/13/23 0020 Gram Stain Gram-positive cocci Narrative: Positive at 22 Hours 52 Minutes BCID PANEL [[id number]] (Abnormal) Collected: 06/11/231745 Lab Status: Final result Specimen: Blood Peripheral Updated: 06/13/23 0020 Staphylococcus species Detected Comment: Staphylococcus species (not S. aureus, S. lugdunensis, or S. epidermidis). Narrative: Blood Culture ID Panel performed by [employer] multiplex PCR. Test Panel includes: Antimicrobial Resistance Genes: Mec A/C and MREJ (methicillin-resistance gene-MRSA) and van A/B (vancomycin- resistance gene). Gram Positive Bacteria: Enterococcus faecalis, Enterococcus faecium, Staphylococcus (genus), Staphylococcus aureus, Staphylococcus epidermidis, Staphylococcus lugdunensis, Streptococcus (genus), Streptococcus agalactiae (Group B), Streptococcus pneumoniae, Streptococcus pyogenes (Group A). CULTURE BLOOD [[id number]] (Normal) Collected: 06/11/23 1552 Lab Status: Preliminary result Specimen: Blood Peripheral Updated: 06/12/23 193 Culture No growth 24 hours MRSA DNA PCR [[id number]] (Abnormal) Collected: 06/11/23 144 Lab Status: Final result Specimen: Microbiology from Nasal Updated: 06/11/23 193 MRSA DNA by PCR Detected Narrative: 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 CULTURE URINE [[id number]] (Abnormal) Collected: 06/11/23 1442 Lab Status: Final result Specimen: Urine Cath Straight Updated: 06/13/23 0556 Culture Urine >100,000 CFU/mL Yeast Comment: No further workup performed CULTURE SPUTUM+GRAM STAIN [[id number]] Collected: 06/11/23 1419 Lab Status: Preliminary result Specimen: Microbiology from Sputum Lower Resp Tract Updated: 06/11/23 1826 Gram Stain <10 per low power field Squamous epithelial cells >= 25 per low power field Polymorphonuclear cells Light Gram-positive cocci SARS-COV-2 (COVID-19)+INFLU A+B PCR RAPID [[id number]] (Normal) Collected: 06/09/232014 Lab Status: Final result Specimen: Microbiology from Nasopharyngeal Updated: 06/09/232118 COVID-19 PCR Not detected Influenza A Rapid BILLY Not Detected Influenza B BILLY Rapid Not Detected Narrative: Influenza assay performed by Nucle[employer] Acid [employer]. Results do not exclude the possibility of a mixed viral infection. NOTE: Detecting and identifying specific viral nucleic acids from individuals exhibiting signs and symptoms of respiratory infection aids in the diagnosis of respiratory infection, if used in conjunction with other clinical and laboratory findings. The results of this test should not be used as thesole basis for diagnosis, treatment, or patient management decisions. This nucleic acid amplification assay performance was validated by [facility]. This test has been authorized by the [...] the Act, 21 U.S.C 360bbb-3 (b)(1), unless theauthorization is terminated or revoked sooner. Fact Sheets for this EUA assay are available upon request. CULTURE URINE [[id number]] (Abnormal) (Susceptibility) Collected: 06/09/23 1545 Lab Status: Final result Specimen: Urine Cath Straight Updated: 06/12/23 0507 Culture Urine 10,000-50,000 CFU/mL Yeast Comment: No further workup performed 1,000-10,000 CFU/mL Pseudomonas aeruginosa Susceptibility Pseudomonas aeruginosa (2) Antibiotic Interpretation Microscan Method Status Amikacin Susceptible 8 ug/mL JELLY Final Cefepime Susceptible 8 ug/mL JELLY Final Ceftazidime Susceptible 4 ug/mL JELLY Final Ciprofloxacin Susceptible <=0.25 ug/mL JELLY Final Gentamicin Resistant JELLY Final Meropenem Susceptible <=0.25 ug/mL JELLY Final Piperacillin-tazobactam Susceptible 8 ug/mL JELLY Final Tobramycin Susceptible <=1 ug/mL JELLY Final Imaging: CT CHEST ABDOMEN PELVIS W CONT Result Date: 06/10/2023 PROCEDURE: CT CHEST ABDOMEN PELVIS W CONT, DATE/TIME OF EXAM: 06/09/2023 10:46 PM, LOCATION [facility] INDICATION: R79.89: Elevated lactic acid level J90: Pleural effusion ADDITIONALCLINICAL INFORMATION: Ordering Provider Reason For Exam: pleural effusion, up trending lactic acid COMPARISON: CT chest abdomen pelvis dated 02/23/2023 TECHNIQUE: CT of the chest, abdomen, and pelvis was performed after the uneventful administration of 100 mL of Isovue 370 intravenous contrast according to standard protocol. Findings: Chest: Evaluation of the chest is limited by motion artifact. Tracheostomy tube terminates in superior trachea. A gastrostomy noted and the tip of the tube is seenin the region of proximal jejunum. Lower Neck and Axillae: Normal. Lungs: Debris is noted in the right lower and mid lobe bronchi. Redemonstration of atelectasis of the right lower lobe and patchy atelectasis in the right middle lobe. There is mild groundglass opacity and bronchial wall thickening in the right upper duct. Redemonstrated segmental atelectasis of the left lower lobe. Findings are again suggestive of aspiration. Small pleural effusions seen in the left side. No pneumothorax is present. Heart and Pericardium: The cardiac chambers are normal in size. No pericardial fluid or thickening is present. Coronary artery calcifications are noted. Subendocardial hypodensity in the left ventricle indicating age indeterminate myocardial infarction. Mediastinum and Almita: No mediastinal hemorrhage is present. No enlarged lymph nodes are present. Thoracic Vasculature: No vascular abnormality is present. Abdomen/pelvis: Liver: Normal. Gallbladder and Bile Ducts: A gallstone is seen. No wall thickening or pericholecystic fluid. Spleen: Normal. Pancreas: Normal. Adrenals: Normal. Kidneys:There are multiple punctate hyperdensities in the bilateral kidneys which may represent nonobstructive calculi versus atherosclerotic calcifications. Bilateral kidneys enhance symmetrically without evidence of hydronephrosis. Gastrointestinal: A percutaneous gastrojejunostomy tube with a balloon inthe stomach, again study anterior abdominal wall, and tip of the tube is in the proximal jejunum. Small sized hiatal hernia is present. The stomach and visualized loops of large and small bowel are unremarkable. Normal appendix. Large volume stool is seen throughout the colon. Mesentery/Peritoneum/R etroperitoneum: No free intraperitoneal air. No free fluid in the abdomen or pelvis. Bladder: A Jensen catheter terminates within a decompressed urinary bladder. Reproductive Organs: The prostate is enlarged, measuring 5.5 cm transversely. Abdominal Vasculature: Atherosclerotic calcification of the aorta and its branch vessels. Bones: Chronic fracture deformity of the distal right clavicle as wellas degenerative changes of the right shoulder joint is noted. . The visible osseous structures are intact. Degenerative changes are seen in the spine. Soft tissues: Normal. Impression: 1.Bilateral lower lob atelectasis as well [...] pelvis. > Dictated by Justin Kelly MD (vice president fixed income). I, Bebo Kuo MD have personally reviewed and interpreted this examination/study. > Interpreting Provider: Bebo Kuo MD on 06/10/2023 7:[address] HEAD WO CONTRAST Result Date: 06/09/2023 EXAM: CT HEAD WO CONTRAST, DATE/TIME OF EXAM: 06/09/2023 10:46 PM, LOCATION: [facility] HISTORY: R53.1: Weakness ADDITIONAL CLINICAL INFORMATION: Ordering Provider Reason For Exam: Altered. EXAMINATION: CT scan of the head without intravenous contrast TECHNIQUE: CT of the head was performed without intravenous contrast according to standard protocol. CT dose reduction technique was used, including Automated Exposure Control. COMPARISON: Head CT 01/01/2023. FINDINGS: BRAIN PARENCHYMA/VENTRICLES/EXTRA-AXIAL SPACES: No acute hemorrhage, large vascular territory infarct, or mass effect. 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 Unchanged small chronic lacunes of the left cerebellum, left paramedian isabella, thalami, and left basal ganglia. Scattered and confluent white matter hypodensities, which are nonspecific but likely represents the sequela of chronic microangiopathic change. Moderate generalized parenchymal volume loss with ex vacuo dilation of the ventricles.Unchanged ventricular prominence that is disproportionate to sulcal dilation, prominence of the sylvian fissures, and crowding of the sulci at the skull vertex, which are nonspecific findings but maybe related to parenchymal volume loss; however, superimposed normal pressure hydrocephalus (NPH) cannot be excluded and this can be correlated clinically. No extra-axial collection. Basal cisterns are patent. EXTRACRANIAL STRUCTURES: No acute or suspicious osseous abnormality. Chronic healed fracture deformity of the left lamina papyracea; otherwise, unremarkable orbits. Re-demonstrated near complete opacification of the right maxillary sinus with mixed density material associated with mucoperiosteal thickening/chronic osteitis of the right posterior maxillary sinus head, which is consistentwith chronic sinusitis. Mild mucosal thickening of the ethmoid air cells and [id number] mucosal thickening of the left frontal sinus/frontoethmoidal recess. Trace bubbly mucosal material withinthe right sphenoid sinus. Evidence of prior right middle turbinectomy. Trace opacification right nasal cavity; otherwise, nasal cavity is clear. Incidentally noted left middle nasal turbinate cory bullosa. Small right and trace left mastoid effusions. Left occipital scalp subcutaneous lesion measuring 1.4 x 0.7 cm in the axial plane (09/22), which favors a benign trichilemmal or sebaceous cyst. Moderate calcific atherosclerosis of the carotid siphons. Small amount of cerumen within the external auditory canals. IMPRESSION: 1.No acute intracranial abnormality. 2.Chronic findings as described. > InterpretingProvider: Georgia Lees MD, PhD on 06/09/2023 10:59 PM XR CHEST 1VW PORTABLE Result Date: 06/09/2023 PROCEDURE: XR CHEST 1VW PORTABLE DATE/TIME OF EXAM: 06/09/2023 11:49 AM CLINICAL INFORMATION: None relevant/not provided if blank. Indication: R53.1: Weakness Additional History: COMPARISON: AP portable semiupright chest dated 02/26/2023 at 1919 hours FINDINGS: AP portable semiupright view of the chest is performed and demonstrates the tracheostomy tube to superimpose the midline mid tracheal region. The lungs appear hypoventilated but otherwise without acute infiltrate or consolidation. Cardiac silhouette stable and believed to be within normal limits. Almita, mediastinum, and vascular lung markings without concerning abnormality. Haziness at the left lung base may be due to a small left pleural effusion with some adjacent atelectatic changes. IMPRESSION: Very mild left basilar haziness possibly due to small left pleural effusion with adjacent atelectatic changes. > Interpreting Provider: Hermes Lynn MD on 06/09/2023 12:00 PM Assessment and Plan: #Sepsis due to UTI vs pneumonia #AMS #UTI #Possible pneumonia?? -HR improved today. Pt has remained afebrile pneumonia -Urinalysis positive for bacteria and urine culture grew pseudomonas. -Blood cultures were positive for gram positive cocci. Repeat blood cultures ordered. Sputum cultures and repeat urine cultures pending. -Pt has history of multiple MDR Pseudomonas infections -Continue vancomycin and ceftolozane/tazobactam -Infectious disease following Per their note: - Gram stain and culture of tracheal secretion - UA and urine culture (from straight cath) - Blood cultures - Start ceftolozane/tazobactam 3g IV q8h after all cultures are collected. If Pseudomonas grows in sputum or urine culture, request susceptibility for ceftolozane/tazobactam and cefiderocol. ?? #Epilipsy?? -Continue home Keppra and Valproic acid -Seizure precautions -Fall precautions #OROPEZA -Pt stated he had a OROPEZA that persisted despite being given 1000 mg of acetaminophen -Ordered one time dose ??of 400 mg ibuprofen #HTN -Continue Lopressor ?? #HLD -Continue Lipitor ?? # DVT prophylaxis:??Heparin?? # GI prophylaxis:??Pepcid # Diet:Tube feeding?? # IVF:??PIV # Code:??Full code # Disposition: - Follow-up needs:??To be determined?? - Social work needs:??Has a SNF - Potential discharge date:??To be determined? Patient seen and plan of care discussed with the Attending Dr.??Gaurav Nogueira. ? Derosangela Wells OMS-IV [employer]OR OF SP[employer] MANAGEMENT Associated attestation - Gaurav Nogueira MD - 06/15/2023 4:31 PM PROFESSOR OF SPORT MANAGEMENT I have verified the documentation of the student including all history, exam, and medical decision-making details. I have personally performed a physical exam and have personally reviewed the data tosupport my medical decision-making as outlined in the medical student's note, and I arrive independently at the same conclusion or any additional information that is pertinent to patient care. In addition: Problem List Sepsis due to pneumonia (CMS-HCC) (POA: Yes) History of CVA (cerebrovascular accident) (POA: Yes) Essential (primary) hypertension (POA: Yes) Severe protein-calorie malnutrition (CMS-HCC) (POA: Yes) Chronic respiratory failure with hypoxia (CMS-HCC) (POA: Yes) Pleural effusion (POA: Yes) Elevated lactic acid level (POA: Yes) Plan: - continue vanc and cef/eduar - ID recommendations appreciated - awaiting cultures from deep suctioning and repeat UA/UCx (indwelling jensen so likely collonization) * Susan Connors, PharmD - 06/13/2023 1:01 PM CST ACTIVE CONSULTS TO PHARMACY/DISEASE STATE MONITORING Pharmacy Consult: Vancomycin ASSESSMENT/PLAN Indication: suspected Pneumonia with Goal Level: AUC 400-600 and/or trough 12-15 mcg/mL ID consulted/following: Yes Assessment: Day of treatment: 2 End of treatment date: to be determined Current dosing regimen: 1000 mg,Q8 hr Renal assessment: considered stable at this time as patient has augmented renal function. Micro evaluation: Recent Labs Component Name 06/11/23 1442 MRSADPCR Detected* MRSA: Yes (PCR positive) Other pertinent micro: Yes Sputum culture 06/11 pending Blood cx 06/11: 12 CoNS (likely contaminant) Blood cx 06/13: pending Level evaluation: See chart below Recent Labs Component Name 06/13/23 0845 11/30/22 1508 11/30/22 0617 09/10/22 0906 09/02/22 0848 08/31/22 0923 07/04/22 0145 07/03/22 0405 07/02/22 0531 VANCORNDM - - - - - - 22.0 26.1 32.1 VANCTROUGH - 13.1 - 14.1 20.7* - - - - VANCOPEAK 14.1* - 24.9* - - - - - - - = values in this interval not displayed. Vancomycin peak level today was not a peak level, but rather reflects an early trough level (drawn 1h prior to next dose) as patient not yet at steady state. Based on PK, will keep TDD at 3g, but change the frequency to q12h with the same anticipated AUC of 485. Plan Dosing: Will adjust dose to 1500 mg Q12 hr. This regimen calculates to provide estimated AUC of 485 mg-h/L Monitoring Will order a vancomycin peak level after maintenance dose on 06/15 at 0500 and trough level prior tomaintenance dose on 06/15 at 1300 and adjust regimen if indicated. Continue to monitor patient???s renal function and cultures as needed. Susan Connors, PharmD 06/13/2023 12:47 PM [facility] Vancomycin Guideline SUBJECTIVE/OBJECTIVE Bi Tabor is a 63 year old male. Height: 5' 10 (177.8 cm) Wt 81.6 kg (180 lb) Body mass index is 25.83 kg/m??. Recent Labs Component Name 06/13/23 0554 06/13/23 0553 06/12/23 1714 06/10/23 0514 06/09/23 1314 02/28/23 0541 CREATININE 0.47* - 0.45* - 0.63* 0.41* BUN - 9 WBC - 4.4 5.5 6.7 7.3 5.4 @[id number]@ Dialysis Orders (72h ago, onward) None Vancomycin Administrations from JUL (last 72 hours) Date/Time Action Medication Dose Rate 06/13/23 0232 $ New Bag/Syringe vancomycin (Vancocin) 1,000 mg in 0.9% NaCl IV 250 mL IVPB 1,000 mg 250 mL/hr 06/12/23 1919 $ New Bag/Syringe vancomycin (Vancocin) 1,000 mg in 0.9% NaCl IV 250 mL IVPB 1,000 mg 250 mL/hr 06/12/23 1012 $ New Bag/Syringe vancomycin (Vancocin) 2,000 mg in 500 mL NaCl IVPB Premix 2,000 mg 250 mL/hr [employer]NAGEMENT * Mayra Lyn RN - 06/13/2023 12:21 PM CST Care Coordination Initial Assessment Anticipated Discharge Date: 06/17/23 Transportation at Discharge: Ambulance Anticipated level of care at discharge: [facility] - Skilled Facility Anticipated level of care provider: None Prior to admission level of care: [facility] - Skilled Facility Comment: [facility] Prior to admit provider: None Patient Goals: To return to facility Plans: Discharge needs identified. See progress notes for details. Case Management to follow for discharge planning. Comments: Pt admitted via EMS from [facility] for c/o lethargy for the past 12 hours.Pt has hx respiratory failure and has a chronic tracheostomy with his baseline being at 10L of O2 per trach collar. EMS states the patient is nonverbal at baseline but upon arrival he whispered his name. Spoke with pt briefly and he was unable to answer all questions, just name. Called SNF and pt is a max assist with frequent suctioning and cares. He is up in a chair occasionally via bao lift into a broda chair. Pt will return to facility at discharge, SW aware. Lives with: Other (Comment) (Lives at [facility]) Physical Limitations: Bed Bound Requires Assistance With: Mobility;Dressing;Feeding;Toileting;Hygiene;Transfers;Housekeeping;Meal Pr eparation;Medication Administration;Shopping Preferred Pharmacy: [facility] [place] - [phone] [facility] [id number] [address] [address] [facility] [id number] READMISSION RISK SCORE is 22 at 12:21 PM 06/13/2023. Met with patient and spoke with facility staff Family Support (name and phone): Extended Emergency Contact Information Primary Emergency Contact: BabakAdriane Mobile Relation: Sister Tray Drier needed? No Secondary Emergency Contact: Amarjit Tabor [facility] Relation: Brother Patient or leasing representative requests care coordination reach out to family or caregiver listed above regarding discharge planning and at time of discharge? Yes Patient/Family provided with list of resources? Unknown Preferred Provider / High Quality Network List given?: Unknown Reason for provider choice: Pt. choice - previous provider Education Spec Referral: Yes Will continue to follow. For any questions or needs please contact: Custody Officer Name/Phone number: Mayra Lyn RN [employer]NAGEMENT * Charles Reis RN - 06/12/2023 6:33 PM CST Assessment of patient???s baseline is established at the beginning of the shift in flowsheets. Unexpected findings and/or deviations from baseline are captured in flowsheets. Frequent safety checks and comfort rounds provided. Orders and/or nursing care completed as indicated. Patient monitored forresponse to interventions and treatments as documented in flowsheets. Pt. is A&O to self and place, on 10 L/m trache, bed rest, VS stable, and cooperative with his treatment. Patient has been suctioned thru his trache and mouth multiple times due to his secretion/ sputum. At this time, pt is resting in his bed, no c/o pain or SOB. Bed in low and locked position. Call light within reach. WCTM. Problem: Nutrient: Inadequate protein-energy intake Goal: Total intake will meet estimated nutrient needs Outcome: Progressing Problem: Fall Risk Goal: Fall risk and fall related injury risk are minimized (interventions related to the fall risk can be found in the flowsheet documentation) Outcome: Progressing [employer]NAG[employer] * Tory Etienne, PharmD - 06/12/2023 2:04 PM CST ACTIVE CONSULTS TO PHARMACY/DISEASE STATE MONITORING Pharmacy Consult: Vancomycin Note: The latest IDSA/SIDP guideline for vancomycin therapeutic monitoring recommend monitoring thearea under the serum concentration vs. time curve for 0- 24 hours (AUC24) as the preferred therapeutic target for suspected/confirmed MRSA infections. The goal AUC 400-600 mg/L/hr has been shown to decrease overall drug exposure minimizing the risk of acute kidney injury without compromising clinical outcomes. Trough guided therapy and serial random level assessment is still appropriate in some patient populations. REF: https://www.idsociety.org/practice-guideline/vancomycin/ ASSESSMENT/PLAN Indication: suspected lower respiratory with Goal Level: AUC 400-600 Assessment ?? Renal assessment: Recent Labs Component Name 06/09/23 1314 02/28/23 0541 02/27/23 0427 02/26/23 1619 CREATININE 0.63* 0.41* 0.42* 0.38* BUN 14 9 11 9 ?? Considered difficult to accurately assess at this time as patient has not had CMP drawn yet today. Per RN phlebotomy tried to draw 3 times and was unable to draw blood. RN to try again this evening. ?? Last renal panel from 06/09 showed Estimated Creatinine Clearance: 125.5 mL/min (A) (by C-G formula based on SCr of 0.63 mg/dL (L)). ?? Historical dosing data that influences current dosing decisions: No ?? Micro evaluation: Recent Labs Component Name 06/11/23 1442 MRSADPCR Detected* ?? History/current positive cultures for MRSA: Yes, sputum x1 08/2022 and MRSA DNA PCR + multiple times throughout 2022 ?? Other pertinent micro: Yes ?? 06/09 urine cx pseudomonas aerginosa ?? 06/11 sputum cx - light GPC ?? 06/11 blood cx x3 in process Plan ? Regimen: o Loading dose: 2000 mg o Maintenance dose: 1000 mg, o Dosing interval: Q8 hr o This regimen calculates to provide estimated AUC of 485 mg-h/L ? Monitoring o Will order a vancomycin peak level after maintenance dose on 06/13 at 1200 and trough level prior to maintenance dose on 06/13 at 1700 and adjust regimen if indicated. o Continue to monitor patient???s renal function and cultures as needed. Tory Etienne, Savi 06/12/2023 1:02 PM [facility] Vancomycin Guideline SUBJECTIVE/OBJECTIVE Bi Tabor is a 63 year old male Height: 5' 10 (177.8 cm) Wt 81.6 kg (180 lb) Body mass index is 25.83 kg/m??. Dialysis Orders (72h ago, onward) None Radiocontrast within 72 hours The 3 most recent administrations since 06/09/2023 are shown below each listed medication. Other Order Route Dose Action Date iopamidol (Isovue 370) 76 % contrast Intravenous 100 mL $ Given - Contrast 06/09/2023 Vancomycin Administrations from JUL (last 72 hours) Date/Time Action Medication Dose Rate 06/12/23 1012 $ New Bag/Syringe vancomycin (Vancocin) 2,000 mg in 500 mL NaCl IVPB Premix 2,000 mg 250 mL/hr Recent Labs Component Name 11/30/22 1508 11/30/22 0617 09/10/22 0906 09/02/22 0848 08/31/22 0923 07/04/22 0145 07/03/22 0405 07/02/22 0531 VANCORNDM - - - - - 22.0 26.1 32.1 VANCTROUGH 13.1 - 14.1 20.7* - - - - VANCOPEAK - 24.9* - - - - - - - = values in this interval not displayed. [employer] * Mary Wells - 06/12/2023 9:11 AM CST Images from the original note were not included. Internal Medicine Progress Note 06/12/2023 9:11 AM Patient Name: Bi Tabor (63 year old) Room Number: 842/01 Attending: Gaurav Nogueira MD Hospital Day: 3 Subjective: Hospital course: 63 y.o male with PMH of epilepsy, chronic hypoxic respiratory failure s/p tracheostomy, HTN, HLD, PAD s/p L AKA previous CVAs and vascular dementia. He was admitted due to AMS likely secondary to UTI. Interval history: -No acute events overnight -Respiratory therapist reports large volume of sputum production around trach -Fever and HR improved -Pt was able to look at me when asked. Attempted to speak, but was unable to speak louder than a whisper Objective: Patient Vitals for the past 6 hrs: Temp Pulse Resp BP 06/12/23 0819 -- 103 20 -- 06/12/23 0809 -- (!) 110 -- -- 06/12/23 0801 98.4 ??F (36.9 ??C) 100 30 107/66 06/12/23 0452 -- 85 18 -- Intake/Output Summary (Last 24 hours) at 06/12/2023 0911 Last data filed at 06/12/2023 0551 Gross per 24 hour Intake 1010 ml Output 1150 ml Net -140 ml -Physical Exam: General - NAD, afebrile, non-cachectic, A&O x3 HEENT - NC/AT, PERRL, EOMI, clear conjunctivae, throat without erythema or exudate, moist mucous membranes Neck - Supple, no lymphadenopathy, no JVD Large amount of sputum Chest - CTAB, no crackles or wheezes bilaterally CV - RRR, no murmurs, radial and DP pulses 4/4, good capillary refill Abdomen - Soft, NT/ND, +BS, no organomegaly Musculoskeletal - Moves all four extremities Extremities - L AKA No clubbing, no cyanosis, no edema Skin - No rashes, lesions or jaundice Neurologic - CN II-XII grossly intact. Motor power: RUE (5/5), RLE (5/5), LUE (5/5) Psych - Appropriate mood and affect Medications ?? SCHEDULED MEDICATIONS: ?? And ?? 0.9% NaCl injection 3 mL, Intracatheter, q8h ?? artificial tears ophthalmic ointment, Each Eye, q8h ?? aspirin chew tablet 81 mg, Enteral Tube, QDAY ?? atorvastatin (Lipitor) tablet 40 mg, Enteral Tube, AT BEDTIME ?? ceftolozane-tazobactam (Zerbaxa) 3,000 mg in 0.9% NaCl IV 100 mL IVPB, Intravenous, q8h ?? cloBAZam (Onfi) tablet 10 mg, Enteral Tube, QAM ?? cloBAZam (Onfi) tablet 15 mg, Enteral Tube, QPM ?? famotidine (Pepcid) tablet 20 mg, Enteral Tube, BID ?? guaiFENesin (Robitussin) solution 15 mL, Enteral Tube, Every 6 Hours (03,09,15,21) ?? heparin injection 5,000 Units, Subcutaneous, q8h ?? levETIRAcetam (Keppra) tablet 2,000 mg, Enteral Tube, BID ?? metoprolol tartrate IR (Lopressor) tablet 25 mg, Enteral Tube, BID ?? valproic acid (Depakene) solution 500 mg, Per G Tube, 4X/day ?? vancomycin (Vancocin) 2,000 mg in 500 mL NaCl IVPB Premix, Intravenous, Once ?? vancomycin (Vancocin) IV dose per pharmacy, Does not apply, DIRECTED ?? [COMPLETED] lactated ringers IV bolus, Intravenous, Once ?? [] iopamidol (Isovue 370) 76 % contrast, Intravenous, Contrast - Once ?? CONTINUOUS MEDICATIONS: ?? PRN MEDICATIONS: ?? 0.9% NaCl injection 1-10 mL, Intracatheter, PRN Data Review Recent Labs Component Name 06/10/23 0514 06/09/23 1314 02/28/23 0541 02/27/23 0427 03/09/22 0135 03/08/22 1455 WBC 6.7 7.3 5.4 5.9 - 20.8* HGB 14.2 14.2 11.7* 12.0 - 14.3 HCT 40.9 43.5 36.0 35.9 - 42.9 PLATELET - - - - - Occasional* PLTCOUNT - 127* 160 171 - 211 - = values in this interval not displayed. Recent Labs Component Name 06/09/23 1314 POTASSIUM 4.2 CO2 27 BUN 14 CREATININE 0.63* CALCIUM 9.3 ALT 11 AST 19 GLUCOSE 82 Recent Labs Component Name 06/09/23 1314 02/24/23 1032 12/31/222052 INR 1.1 1.1 1.1 Microbiology: Microbiology Results (Displays last 21 days for this encounter ONLY) Procedure Component Value - Date/Time CULTURE BLOOD [[id number]] Collected: 06/11/23 1754 Lab Status: In process Specimen: Blood Peripheral Updated: 06/11/23 180 CULTURE BLOOD [[id number]] Collected: 06/11/23 1746 Lab Status: In process Specimen: Blood Peripheral Updated: 06/11/23 1805 CULTURE BLOOD [[id number]] Collected: 06/11/23 1552 Lab Status: In process Specimen: Blood Peripheral Updated: 06/11/23 1556 MRSA DNA PCR [[id number]] (Abnormal) Collected: 06/11/23 1442 Lab Status: Final result Specimen: Microbiology from Nasal Updated: 06/11/23 1932 MRSA DNA by PCR Detected Narrative: 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 CULTURE URINE [[id number]] Collected: 06/11/23 1442 Lab Status: In process Specimen: Urine Cath Straight Updated: 06/11/23 1453 CULTURE SPUTUM+GRAM STAIN [[id number]] Collected: 06/11/23 1419 Lab Status: Preliminary result Specimen: Microbiology from Sputum Lower Resp Tract Updated: 06/11/23 1826 Gram Stain <10 per low power field Squamous epithelial cells >= 25 per low power field Polymorphonuclear cells Light Gram-positive cocci SARS-COV-2 (COVID-19)+INFLU A+B PCR RAPID [[id number]] (Normal) Collected: 06/09/232014 Lab Status: Final result Specimen: Microbiology from Nasopharyngeal Updated: 06/09/232118 COVID-19 PCR Not detected Influenza A Rapid BILLY Not Detected Influenza B BILLY Rapid Not Detected Narrative: Influenza assay performed by Nucleic Acid Amplification. Results do not exclude the possibility of a mixed viral infection. NOTE: Detecting and identifying specific viral nucleic acids from individuals exhibiting signs and symptoms of respiratory infection aids in the diagnosis of respiratory infection, if used in conjunction with other clinical and laboratory findings. The results of this test should not be used as thesole basis for diagnosis, treatment, or patient management decisions. This nucleic acid amplification assay performance was validated by [facility]. This test has been authorized by the [...] the Act, 21 U.S.C 360bbb-3 (b)(1), unless theauthorization is terminated or revoked sooner. Fact Sheets for this EUA assay are available upon request. CULTURE URINE [[id number]] (Abnormal) (Susceptibility) Collected: 06/09/23 1545 Lab Status: Final result Specimen: Urine Cath Straight Updated: 06/12/23 0503 Culture Urine 10,000-50,000 CFU/mL Yeast Comment: No further workup performed 1,000-10,000 CFU/mL Pseudomonas aeruginosa Susceptibility Pseudomonas aeruginosa (2) Antibiotic Interpretation Microscan Method Status Amikacin Susceptible 8 ug/mL JELLY Final Cefepime Susceptible 8 ug/mL JELLY Final Ceftazidime Susceptible 4 ug/mL JELLY Final Ciprofloxacin Susceptible <=0.25 ug/mL JELLY Final Gentamicin Resistant JELLY Final Meropenem Susceptible <=0.25 ug/mL JELLY Final Piperacillin-tazobactam Susceptible 8 ug/mL JELLY Final Tobramycin Susceptible <=1 ug/mL JELLY Final Imaging: CT CHEST ABDOMEN PELVIS W CONT Result Date: 06/10/2023 PROCEDURE: CT CHEST ABDOMEN PELVIS W CONT, DATE/TIME OF EXAM: 06/09/2023 10:46 PM, LOCATION [facility] INDICATION: R79.89: Elevated lactic acid level J90: Pleural effusion ADDITIONALCLINICAL INFORMATION: Ordering Provider Reason For Exam: pleural effusion, up trending lactic acid COMPARISON: CT chest abdomen pelvis dated 02/23/2023 TECHNIQUE: CT of the chest, abdomen, and pelvis was performed after the uneventful administration of 100 mL of Isovue 370 intravenous contrast according to standard protocol. Findings: Chest: Evaluation of the chest is limited by motion artifact. Tracheostomy tube terminates in superior trachea. A gastrostomy noted and the tip of the tube is seenin the region of proximal jejunum. Lower Neck and Axillae: Normal. Lungs: Debris is noted in the right lower and mid lobe bronchi. Redemonstration of atelectasis of the right lower lobe and patchy atelectasis in the right middle lobe. There is mild groundglass opacity and bronchial wall thickening in the right upper duct. Redemonstrated segmental atelectasis of the left lower lobe. Findings are again suggestive of aspiration. Small pleural effusions seen in the left side. No pneumothorax is present. Heart and Pericardium: The cardiac chambers are normal in size. No pericardial fluid or thickening is present. Coronary artery calcifications are noted. Subendocardial hypodensity in the left ventricle indicating age indeterminate myocardial infarction. Mediastinum and Almita: No mediastinal hemorrhage is present. No enlarged lymph nodes are present. Thoracic Vasculature: No vascular abnormality is present. Abdomen/pelvis: Liver: Normal. Gallbladder and Bile Ducts: A gallstone is seen. No wall thickening or pericholecystic fluid. Spleen: Normal. Pancreas: Normal. Adrenals: Normal. Kidneys:There are multiple punctate hyperdensities in the bilateral kidneys which may represent nonobstructive calculi versus atherosclerotic calcifications. Bilateral kidneys enhance symmetrically without evidence of hydronephrosis. Gastrointestinal: A percutaneous gastrojejunostomy tube with a balloon inthe stomach, again study anterior abdominal wall, and tip of the tube is in the proximal jejunum. Small sized hiatal hernia is present. The stomach and visualized loops of large and small bowel are unremarkable. Normal appendix. Large volume stool is seen throughout the colon. Mesentery/Peritoneum/R etroperitoneum: No free intraperitoneal air. No free fluid in the abdomen or pelvis. Bladder: A Jensen catheter terminates within a decompressed urinary bladder. Reproductive Organs: The prostate is enlarged, measuring 5.5 cm transversely. Abdominal Vasculature: Atherosclerotic calcification of the aorta and its branch vessels. Bones: Chronic fracture deformity of the distal right clavicle as wellas degenerative changes of the right shoulder joint is noted. . The visible osseous structures are intact. Degenerative changes are seen in the spine. Soft tissues: Normal. Impression: 1.Bilateral lower lob atelectasis as well [...] pelvis. > Dictated by Justin Kelly MD (vice president fixed income). I, Bebo Kuo MD have personally reviewed and interpreted this examination/study. > Interpreting Provider: Bebo Kuo MD on 06/10/2023 7:[address] HEAD WO CONTRAST Result Date: 06/09/2023 EXAM: CT HEAD WO CONTRAST, DATE/TIME OF EXAM: 06/09/2023 10:46 PM, LOCATION: [facility] HISTORY: R53.1: Weakness ADDITIONAL CLINICAL INFORMATION: Ordering Provider Reason For Exam: Altered. EXAMINATION: CT scan of the head without intravenous contrast TECHNIQUE: CT of the head was performed without intravenous contrast according to standard protocol. CT dose reduction technique was used, including Automated Exposure Control. COMPARISON: Head CT 01/01/2023. FINDINGS: BRAIN PARENCHYMA/VENTRICLES/EXTRA-AXIAL SPACES: No acute hemorrhage, large vascular territory infarct, or mass effect. 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 Unchanged small chronic lacunes of the left cerebellum, left paramedian isabella, thalami, and left basal ganglia. Scattered and confluent white matter hypodensities, which are nonspecific but likely represents the sequela of chronic microangiopathic change. Moderate generalized parenchymal volume loss with ex vacuo dilation of the ventricles.Unchanged ventricular prominence that is disproportionate to sulcal dilation, prominence of the sylvian fissures, and crowding of the sulci at the skull vertex, which are nonspecific findings but maybe related to parenchymal volume loss; however, superimposed normal pressure hydrocephalus (NPH) cannot be excluded and this can be correlated clinically. No extra-axial collection. Basal cisterns are patent. EXTRACRANIAL STRUCTURES: No acute or suspicious osseous abnormality. Chronic healed fracture deformity of the left lamina papyracea; otherwise, unremarkable orbits. Re-demonstrated near complete opacification of the right maxillary sinus with mixed density material associated with mucoperiosteal thickening/chronic osteitis of the right posterior maxillary sinus head, which is consistentwith chronic sinusitis. Mild mucosal thickening of the ethmoid air cells and [id number] mucosal thickening of the left frontal sinus/frontoethmoidal recess. Trace bubbly mucosal material withinthe right sphenoid sinus. Evidence of prior right middle turbinectomy. Trace opacification right nasal cavity; otherwise, nasal cavity is clear. Incidentally noted left middle nasal turbinate cory bullosa. Small right and trace left mastoid effusions. Left occipital scalp subcutaneous lesion measuring 1.4 x 0.7 cm in the axial plane (09/22), which favors a benign trichilemmal or sebaceous cyst. Moderate calcific atherosclerosis of the carotid siphons. Small amount of cerumen within the external auditory canals. IMPRESSION: 1.No acute intracranial abnormality. 2.Chronic findings as described. > InterpretingProvider: Georgia Lees MD, PhD on 06/09/2023 10:59 PM XR CHEST 1VW PORTABLE Result Date: 06/09/2023 PROCEDURE: XR CHEST 1VW PORTABLE DATE/TIME OF EXAM: 06/09/2023 11:49 AM CLINICAL INFORMATION: None relevant/not provided if blank. Indication: R53.1: Weakness Additional History: COMPARISON: AP portable semiupright chest dated 02/26/2023 at 1919 hours FINDINGS: AP portable semiupright view of the chest is performed and demonstrates the tracheostomy tube to superimpose the midline mid tracheal region. The lungs appear hypoventilated but otherwise without acute infiltrate or consolidation. Cardiac silhouette stable and believed to be within normal limits. Almita, mediastinum, and vascular lung markings without concerning abnormality. Haziness at the left lung base may be due to a small left pleural effusion with some adjacent atelectatic changes. IMPRESSION: Very mild left basilar haziness possibly due to small left pleural effusion with adjacent atelectatic changes. > Interpreting Provider: Hermes Lynn MD on 06/09/2023 12:00 PM Assessment and Plan: ?? #Sepsis due to UTI vs pneumonia #AMS #UTI #Possible pneumonia -Pt fever and HR improved today -AMS likely due to sepsis -On exam, pt is producing green mucus at his trach, which is concerning for pneumonia -Urinalysis positive for bacteria and urine culture grew pseudomonas. -Blood, sputum and repeat urine cultures are pending -Pt has history of multiple MDR Pseudomonas infections -MRSA DNA by PCR positive. Added vancomycin for gram positive coverage. Infectious disease was informed and agreed with this plan. -Infectious disease following Per their note: - Gram stain and culture of tracheal secretion - UA and urine culture (from straight cath) - Blood cultures - Start ceftolozane/tazobactam 3g IV q8h after all cultures are collected. If Pseudomonas grows in sputum or urine culture, request susceptibility for ceftolozane/tazobactam and cefiderocol. ?? #Epilipsy -Continue home Keppra and Valproic acid -Seizure precautions -Fall precautions -Valporic acid and keppra levels pending ?? #HTN -Continue Lopressor ?? #HLD -Continue Lipitor ?? # DVT prophylaxis: Heparin # GI prophylaxis: Pepcid # Diet:Tube feeding # IVF: PIV # Code: Full code # Disposition: - Follow-up needs: To be determined - Social work needs: Has a SNF - Potential discharge date: To be determined ? Patient seen and plan of care discussed with the Attending Dr. Gaurav Nogueira. ? Mary Wells OMS-IV [employer]NAG[employer] Associated attestation - Gaurav Nogueira MD - 06/12/2023 10:12 PM PROFESSOR OF [employer] MANAGEMENT I have verified the documentation of the student including all history, exam, and medical decision-making details. I have personally performed a physical exam and have personally reviewed the data tosupport my medical decision-making as outlined in the medical student's note, and I arrive independently at the same conclusion or any additional information that is pertinent to patient care. In addition: Problem List Sepsis due to pneumonia ([facility]-HCC) (POA: Yes) History of CVA (cerebrovascular accident) (POA: Yes) Essential (primary) hypertension (POA: Yes) Severe protein-calorie malnutrition (CMS-HCC) (POA: Yes) Chronic respiratory failure with hypoxia (CMS-HCC) (POA: Yes) Pleural effusion (POA: Yes) Elevated lactic acid level (POA: Yes) Plan: - continue cef-eduar per ID; recommendations appreciated - start IV vancomycin; dosing per pharmacy - recommendations appreciated - trend blood cultures - follow repeat urine cultures - likely that urine on admission is colonization from chronic, indwelling jensen - RT assistance appreciated for trach suctioning/care * Rai Henning RN - 06/12/2023 4:36 AM CST Problem: Nutrient: Inadequate protein-energy intake Goal: Total intake will meet estimated nutrient needs Outcome: Progressing Problem: Fall Risk Goal: Fall risk and fall related injury risk are minimized (interventions related to the fall risk can be found in the flowsheet documentation) Outcome: Progressing Problem: Nutrient: Inadequate protein-energy intake Goal: Total intake will meet estimated nutrient needs Outcome: Progressing Problem: Fall Risk Goal: Fall risk and fall related injury risk are minimized (interventions related to the fall risk can be found in the flowsheet documentation) Outcome: Progressing Pt is AOX4, whispers, on osteolyte 1.2 continuous G tube feeding currently @75ml/hr and water flushof 120ml q4hrs, patient had a BM, was bathed and linens changed, on trach and is being suctioned PRN, dressing changed, on jensen and juliann fruity odor clear urine emptied. HOB @ 45 degree, patient has AKA to LLL, necessary nursing care rendered, BA on, will continue to monitor. [employer]NAG[employer] * Mary Wells - 06/11/2023 12:09 PM CST Images from the original note were not included. Internal Medicine Progress Note 06/11/2023 12:09 PM Patient Name: Bi Tabor (63 year old) Room Number: 842/01 Attending: Gaurav Nogueira MD Hospital Day: 2 Subjective: Hospital course: 63 y.o male with PMH of epilepsy, chronic hypoxic respiratory failure s/p tracheostomy, HTN, HLD, PAD s/p L AKA previous CVAs and vascular dementia. He was admitted due to AMS likely secondary to UTI. Interval history: -Pt was lethargic and spoke few words during exam. ROS unable to be taken -Today he was found to have a fever of 102 and periods of elevated heart rate -Green sputum was seen around his trach. Pt's brother reported that the sputum is not usually Objective: Patient Vitals for the past 6 hrs: Temp Pulse Resp BP BP Method 06/11/23 1119 (!) 102.1 ??F (38.9 ??C) 91 18 117/74 -- 06/11/23 1102 (!) 102.3 ??F (39.1 ??C) 97 18 105/67 Automatic 06/11/23 0901 -- (!) 110 -- 119/75 -- 06/11/23 0827 -- (!) 122 18 -- -- 06/11/23 0800 (!) 102.6 ??F (39.2 ??C) (!) 126 20 134/71 Automatic Intake/Output Summary (Last 24 hours) at 06/11/2023 1209 Last data filed at 06/11/2023 0620 Gross per 24 hour Intake 60 ml Output 450 ml Net -390 ml -Physical Exam: General - NAD, Fever present, non-cachectic, A&O x3 HEENT - NC/AT, PERRL, EOMI, clear conjunctivae, throat without erythema or exudate, moist mucous membranes Neck - Supple, no lymphadenopathy, no JVD, Green sputum around trach Chest - CTAB, no crackles or wheezes bilaterally CV - RRR, no murmurs, radial and DP pulses 4/4, good capillary refill, Tachycardia Abdomen - Soft, NT/ND, +BS, no organomegaly Musculoskeletal - Moves all four extremities Extremities - L AKA, No clubbing, no cyanosis, no edema Skin - No rashes, lesions or jaundice Neurologic - CN II-XII grossly intact. Motor power: RUE (5/5), RLE (5/5) Psych - Appropriate mood and affect Medications ?? SCHEDULED MEDICATIONS: ?? And ?? 0.9% NaCl injection 3 mL, Intracatheter, q8h ?? artificial tears ophthalmic ointment, Each Eye, q8h ?? aspirin chew tablet 81 mg, Enteral Tube, QDAY ?? atorvastatin (Lipitor) tablet 40 mg, Enteral Tube, AT BEDTIME ?? cefepime (Maxipime) 2,000 mg in 0.9% NaCl IV 50 mL IVPB, Intravenous, q8h ?? cloBAZam (Onfi) tablet 10 mg, Enteral Tube, QAM ?? cloBAZam (Onfi) tablet 15 mg, Enteral Tube, QPM ?? famotidine (Pepcid) tablet 20 mg, Enteral Tube, BID ?? guaiFENesin (Robitussin) solution 15 mL, Enteral Tube, Every 6 Hours (03,09,15,) ?? heparin injection 5,000 Units, Subcutaneous, q8h ?? iopamidol (Isovue 370) 76 % contrast, Intravenous, Contrast - Once ?? levETIRAcetam (Keppra) tablet 2,000 mg, Enteral Tube, BID ?? metoprolol tartrate IR (Lopressor) tablet 25 mg, Enteral Tube, BID ?? valproic acid (Depakene) solution 500 mg, Per G Tube, 4X/day ?? [COMPLETED] lactated ringers IV bolus, Intravenous, Once ?? CONTINUOUS MEDICATIONS: ?? PRN MEDICATIONS: ?? 0.9% NaCl injection 1-10 mL, Intracatheter, PRN Data Review Recent Labs Component Name 06/10/23 0514 06/09/23 1314 02/28/23 0541 02/27/23 0427 03/09/22 0135 03/08/22 1455 WBC 6.7 7.3 5.4 5.9 - 20.8* HGB 14.2 14.2 11.7* 12.0 - 14.3 HCT 40.9 43.5 36.0 35.9 - 42.9 PLATELET - - - - - Occasional* PLTCOUNT - 127* 160 171 - 211 - = values in this interval not displayed. Recent Labs Component Name 06/09/23 1314 POTASSIUM 4.2 CO2 27 BUN 14 CREATININE 0.63* CALCIUM 9.3 ALT 11 AST 19 GLUCOSE 82 Recent Labs Component Name 06/09/23 1314 02/24/23 1032 12/31/22 2053 INR 1.1 1.1 1.1 Microbiology: Microbiology Results (Displays last 21 days for this encounter ONLY) Procedure Component Value - Date/Time CULTURE SPUTUM+GRAM STAIN [[id number]] Lab Status: No result Specimen: Microbiology from Sputum Lower Resp Tract CULTURE BLOOD [[id number]] Lab Status: No result Specimen: Blood Peripheral CULTURE BLOOD [[id number]] Lab Status: No result Specimen: Blood Peripheral SARS-COV-2 (COVID-19)+INFLU A+B PCR RAPID [[id number]] (Normal) Collected: 06/09/232014 Lab Status: Final result Specimen: Microbiology from Nasopharyngeal Updated: 06/09/232118 COVID-19 PCR Not detected Influenza A Rapid BILLY Not Detected Influenza B BILLY Rapid Not Detected Narrative: Influenza assay performed by Nucleic Acid Amplification. Results do not exclude the possibility of a mixed viral infection. NOTE: Detecting and identifying specific viral nucleic acids from individuals exhibiting signs and symptoms of respiratory infection aids in the diagnosis of respiratory infection, if used in conjunction with other clinical and laboratory findings. The results of this test should not be used as thesole basis for diagnosis, treatment, or patient management decisions. This nucleic acid amplification assay performance was validated by [facility]. This test has been authorized by the [...] the Act, 21 U.S.C 360bbb-3 (b)(1), unless theauthorization is terminated or revoked sooner. Fact Sheets for this EUA assay are available upon request. CULTURE URINE [[id number]] (Abnormal) Collected: 06/09/23 1545 Lab Status: Preliminary result Specimen: Urine Cath Straight Updated: 06/11/23 1208 Culture Urine 10,000-50,000 CFU/mL Yeast Comment: No further workup performed 1,000-10,000 CFU/mL Pseudomonas aeruginosa Imaging: CT CHEST ABDOMEN PELVIS W CONT Result Date: 06/10/2023 PROCEDURE: CT CHEST ABDOMEN PELVIS W CONT, DATE/TIME OF EXAM: 06/09/2023 10:46 PM, LOCATION [facility] INDICATION: R79.89: Elevated lactic acid level J90: Pleural effusion ADDITIONAL CLINICAL INFORMATION: Ordering Provider Reason For Exam: pleural effusion, up trending lactic acidCOMPARISON: CT chest abdomen pelvis dated 02/23/2023 TECHNIQUE: CT of the chest, abdomen, and pelviswas performed after the uneventful administration of 100 mL of Isovue 370 intravenous contrast according to standard protocol. Findings: Chest: Evaluation of the chest is limited by motion artifact. Tracheostomy tube terminates in superior trachea. A gastrostomy noted and the tip of the tube is seen in the region of proximal jejunum. Lower Neck and Axillae: Normal. Lungs: Debris is noted in the right lower and mid lobe bronchi. Redemonstration of atelectasis of the right lower lobe and patchy atelectasis in the right middle lobe. There is mild groundglass opacity and bronchial wall thickeningin the right upper duct. Redemonstrated segmental atelectasis of the left lower lobe. Findings are again suggestive of aspiration. Small pleural effusions seen in the left side. No pneumothorax is present. Heart and Pericardium: The cardiac chambers are normal in size. No pericardial fluid or thickening is present. Coronary artery calcifications are noted. Subendocardial hypodensity in the left ventricle indicating age indeterminate myocardial infarction. Mediastinum and Almita: No mediastinal hemorrhage is present. No enlarged lymph nodes are present. Thoracic Vasculature: No vascular abnormality is present. Abdomen/pelvis: Liver: Normal. Gallbladder and Bile Ducts: A gallstone is seen. No wall thickening or pericholecystic fluid. Spleen: Normal. Pancreas: Normal. Adrenals: Normal. Kidneys: There are multiple punctate hyperdensities in the bilateral kidneys which may represent nonobstructive calculi versus atherosclerotic calcifications. Bilateral kidneys enhance symmetrically without evidence of hydronephrosis. Gastrointestinal: A percutaneous gastrojejunostomy tube with a balloon in the stomach, again study anterior abdominal wall, and tip of the tube is in the proximal jejunum. Small sized hiatal hernia is present. The stomach and visualized loops of large and small bowel are unremarkable. Normal appendix. Large volume stool is seen throughout the colon. Mesentery/Peritoneum/ Retroperitoneum: No free intraperitoneal air. No free fluid in the abdomen or pelvis. Bladder: A Jensen catheter terminates within a decompressed urinary bladder. Reproductive Organs: The prostate is enlarged, measuring 5.5 cm transversely. Abdominal Vasculature: Atherosclerotic calcification of theaorta and its branch vessels. Bones: Chronic fracture deformity of the distal right clavicle as well as degenerative changes of the right shoulder joint is noted. . The visible osseous structures areintact. Degenerative changes are seen in the spine. Soft tissues: Normal. Impression: 1.Bilateral lower lob atelectasis as well [...] pelvis. > Dictated by Justin Kelly MD (vice president fixed income). I, Bebo Kuo MD have personally reviewed and interpreted this examination/study. > Interpreting Provider: Bebo Kuo MD on 06/10/2023 7:[address] HEAD WO CONTRAST Result Date: 06/09/2023 EXAM: CT HEAD WO CONTRAST, DATE/TIME OF EXAM: 06/09/2023 10:46 PM, LOCATION: [facility] HISTORY: R53.1: Weakness ADDITIONAL CLINICAL INFORMATION: Ordering Provider Reason For Exam: Altered. EXAMINATION: CT scan of the head without intravenous contrast TECHNIQUE: CT of the head was performed without intravenous contrast according to standard protocol. CT dose reduction technique was used, including Automated Exposure Control. COMPARISON: Head CT 01/01/2023. FINDINGS: BRAIN PARENCHYMA/VENTRICLES/EXTRA-AXIAL SPACES: No acute hemorrhage, large vascular territory infarct, or mass effect. 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 Unchanged small chronic lacunes of the left cerebellum, left paramedian isabella, thalami, and left basal ganglia. Scattered and confluent white matter hypodensities, which are nonspecific but likely represents the sequela of chronic microangiopathic change. Moderate generalized parenchymal volume loss with ex vacuo dilation of the ventricles.Unchanged ventricular prominence that is disproportionate to sulcal dilation, prominence of the sylvian fissures, and crowding of the sulci at the skull vertex, which are nonspecific findings but maybe related to parenchymal volume loss; however, superimposed normal pressure hydrocephalus (NPH) cannot be excluded and this can be correlated clinically. No extra-axial collection. Basal cisterns are patent. EXTRACRANIAL STRUCTURES: No acute or suspicious osseous abnormality. Chronic healed fracture deformity of the left lamina papyracea; otherwise, unremarkable orbits. Re-demonstrated near complete opacification of the right maxillary sinus with mixed density material associated with mucoperiosteal thickening/chronic osteitis of the right posterior maxillary sinus head, which is consistentwith chronic sinusitis. Mild mucosal thickening of the ethmoid air cells and [id number] mucosal thickening of the left frontal sinus/frontoethmoidal recess. Trace bubbly mucosal material withinthe right sphenoid sinus. Evidence of prior right middle turbinectomy. Trace opacification right nasal cavity; otherwise, nasal cavity is clear. Incidentally noted left middle nasal turbinate cory bullosa. Small right and trace left mastoid effusions. Left occipital scalp subcutaneous lesion measuring 1.4 x 0.7 cm in the axial plane (09/22), which favors a benign trichilemmal or sebaceous cyst. Moderate calcific atherosclerosis of the carotid siphons. Small amount of cerumen within the external auditory canals. IMPRESSION: 1.No acute intracranial abnormality. 2.Chronic findings as described. > InterpretingProvider: Georgia Lees MD, PhD on 06/09/2023 10:59 PM XR CHEST 1VW PORTABLE Result Date: 06/09/2023 PROCEDURE: XR CHEST 1VW PORTABLE DATE/TIME OF EXAM: 06/09/2023 11:49 AM CLINICAL INFORMATION: None relevant/not provided if blank. Indication: R53.1: Weakness Additional History: COMPARISON: AP portable semiupright chest dated 02/26/2023 at 1919 hours FINDINGS: AP portable semiupright view of the chest is performed and demonstrates the tracheostomy tube to superimpose the midline mid tracheal region. The lungs appear hypoventilated but otherwise without acute infiltrate or consolidation. Cardiac silhouette stable and believed to be within normal limits. Almita, mediastinum, and vascular lung markings without concerning abnormality. Haziness at the left lung base may be due to a small left pleural effusion with some adjacent atelectatic changes. IMPRESSION: Very mild left basilar haziness possibly due to small left pleural effusion with adjacent atelectatic changes. > Interpreting Provider: Hermes Lynn MD on 06/09/2023 12:00 PM Assessment and Plan: #Sepsis due to UTI vs pneumonia #AMS #UTI #Possible pneumonia -Pt has fever of 102 and is tachycardic. Meets SIRS criteria -AMS likely due to sepsis -On exam, pt is producing green mucus at his trach, which is concerning for pneumonia -MRSA swab ordered. Sputum cultures ordered -Urinalysis positive for bacteria and urine culture grew pseudomonas. -Pt has history of multiple MDR Pseudomonas infections -Infectious disease was consulted. Appreciate recs Per their note: - Gram stain and culture of tracheal secretion - UA and urine culture (from straight cath) - Blood cultures - Start ceftolozane/tazobactam 3g IV q8h after all cultures are collected. If Pseudomonas grows in sputum or urine culture, request susceptibility for ceftolozane/tazobactam and cefiderocol. #Epilipsy -Continue home Keppra and Valproic acid -Seizure precautions -Fall precautions -Valporic acid and keppra levels pending #HTN -Continue Lopressor #HLD -Continue Lipitor # DVT prophylaxis: Heparin # GI prophylaxis: Pepcid # Diet:Tube feeding # IVF: PIV # Code: Full code # Disposition: - Follow-up needs: To be determined - Social work needs: Has a SNF - Potential discharge date: To be determined Patient seen and plan of care discussed with the Attending Dr. Gaurav Nogueira. Derosangela Wells OMS-IV ESSOR OF SPORT MANAGEMENT Associated attestation - Gaurav Nogueira MD - 06/12/2023 10:14 PM PROFESSOR OF SPORT MANAGEMENT I have verified the documentation of the student including all history, exam, and medical decision-making details. I have personally performed a physical exam and have personally reviewed the data tosupport my medical decision-making as outlined in the medical student's note, and I arrive independently at the same conclusion or any additional information that is pertinent to patient care. In addition: Problem List Sepsis due to pneumonia (CMS-HCC) (POA: Yes) History of CVA (cerebrovascular accident) (POA: Yes) Essential (primary) hypertension (POA: Yes) Severe protein-calorie malnutrition (CMS-HCC) (POA: Yes) Chronic respiratory failure with hypoxia (CMS-HCC) (POA: Yes) Pleural effusion (POA: Yes) Elevated lactic acid level (POA: Yes) Plan: - ID recommendations appreciated re: h/o MDRO Pseudomonas - obtain blood and sputum cultures, MRSA nares - repeat UA/UCx from indwelling jensen - possible admission culture chronic colonization - RT assistance appreciated for trach suctioning/care * Bruce Mckeon RN - 06/11/2023 12:02 PM CST Problem: Nutrient: Inadequate protein-energy intake Goal: Total intake will meet estimated nutrient needs Outcome: Progressing Problem: Fall Risk Goal: Fall risk and fall related injury risk are minimized (interventions related to the fall risk can be found in the flowsheet documentation) Outcome: Progressing ESSOR OF SPORT MANAGEMENT * Bruce Mckeon RN - 06/11/2023 8:10 AM CST Patient's vital signs assessed and recorded. HR 126, Temp 102.6. Red Team notified of same (Wili Cavazos MD). Orders placed for LR Bolus, Cefepime IV, ID Consult, Stat labs; sputum, urine blood. Same was initiated. Vital signs reassessed and recorded. Patient is a hard stick. Multiple attempts made to obtain blood sample by this nurse and charge nurse Renetta; only able to acquire one blood culture bottle; same sent to lab for investgation [id number]. notified of same since there would be a delayin administering patient's Zerbaxa IV. (All cultures to be drawn prior to administration as per ). Rapid nurses were informed; blood cultures collected by Rapid Team [id number]. Zerbaxa IV initiated. E[employer] OF SPORT MANAGEMENT * Elmo Caicedo SLP - 06/10/2023 3:13 PM CST [facility] Department of Physical Medicine & Rehabilitation Progress Note Patient: Bi Tabor [facility] Record Number: [id number] Date of : 1960 Age: [age] year old PM TECHNICIAN consult received and acknowledged. Patient with CT of chest (06/09/23) concerning for debris andopacities in the right lower and mid lobes. Patient has been NPO, with PEG for nutrition/hydration,and is not appropriate for PO intake. No ST recommendations at this time. Please re-consult ST whenneeded. Elmo Ansari M.A., [facility]-PM TECHNICIAN Speech Language Pathologist [phone] ESS[employer] OF SPORT MANAGEMENT * Jolynn Ann MD - 06/10/2023 10:58 AM CST Hospitalist Progress Note Admit Date: 06/09/2023 11:36 AM Hospital Day: 1 Clinical Course Overall patient has slightly improved since admit. New Symptoms Patient is with dementia, tracheostomy/GJ at baseline and admitted with altered mental status. Thislimits ability to obtain history or ROS which were attempted. Sister (SHARI) later at bedside and reports that the patient has had issues with exchanging his tracheostomy tube in the facility he resides in and has had prior issues with aspiration pneumonia. Otherwise states he is on seizure medications and thinks he may have a very short lived seizure recently, and was wondering if levels of his medications can be checked. Data Vitals: 06/10/23 0600 06/10/23 0603 06/10/23 0700 06/10/23 0710 BP: 137/87 140/83 Pulse: 104 (!) 113 Resp: 15 Temp: SpO2: 94% 94% 92% 94% Weight: Height: Temp (30hrs) Max:97.8 ??F (36.6 ??C) My review of labs, imaging, notes and other tests is significant for Recent Labs Component Name 06/10/23 0514 06/09/23 1314 02/28/23 0541 02/27/23 0427 WBC 6.7 7.3 5.4 5.9 HGB 14.2 14.2 11.7* 12.0 HCT 40.9 43.5 36.0 35.9 PLTCOUNT - 127* 160 171 Recent Labs Component Name 06/09/23 1314 02/28/23 0541 02/27/23 0427 POTASSIUM 4.2 4.7* 4.6* CO2 27 27 26 BUN 14 9 11 CREATININE 0.63* 0.41* 0.42* GLUCOSE 82 83 94 CALCIUM 9.3 9.2 8.8 Exam Constitutional: Appearance: Normal appearance. He is not ill-appearing. HENT: Nose: Nose normal. Mouth/Throat: Mouth: Mucous membranes are moist. Eyes: Pupils: Pupils are equal, round, and reactive to light. Cardiovascular: Rate and Rhythm: Tachycardia present. Pulmonary: Effort: No respiratory distress. Abdominal: Tenderness: There is no abdominal tenderness. Neurological: Mental Status: He is alert CT HEAD WO CONTRAST ?? Result Date: 06/09/2023 IMPRESSION: 1.No acute intracranial abnormality. 2.Chronic findings as described. > InterpretingProvider: Georgia Lees MD, PhD on 06/09/2023 10:59 PM ?? XR CHEST 1VW PORTABLE ?? Result Date: 06/09/2023 IMPRESSION: Very mild left basilar haziness possibly due to small left pleural effusion with adjacent atelectatic changes. > Interpreting Provider: Hermes Lynn MD on 06/09/2023 12:00 PM Assessment and Plan 63-year-old male with past medical history of epilepsy, chronic hypoxic respiratory failure status post trach, GJ tube, hypertension, hyperlipidemia, previous stroke and vascular dementia who was brought to the hospital because of altered mental status. Toxic metabolic encephalopathy on baseline dementia, likely secondary to UTI Patient has a history of dementia and labs concerning for UTI. Other less likely source could be the lungs (aspiration) however, he's on his baseline O2 requirements and is not having increased secretions at this time. - CT head did not show any acute etiology - CT chest abdomen pelvis showed ground-glass opacities in the lower parts of the lung compatible with retained secretions. - Started currently on ceftriaxone. - Follow up on urine cultures and blood cultures History of epilepsy Resume home Clobazam, Keppra and lamotrigine Check levels of all above medications Patient's sister concerned he may have had a seizure in the ED, monitor for this clinically, restarted home medications today, if persistent concerns/recurrent, can consult neurology. Seizure precautions Fall precautions ?? Hypertension Resume home medication ?? Lactic acidosis Secondary to UTI, received fluid and lactic acid trended down to normal. Status post tracheostomy and GJ tube Continue tracheostomy care GJ replaced by IR 02/25/23 TF per nutrition recommendations Diet: Tube feeds DVT PPx: Heparin subQ GI Prophylaxis: Pepcid Peripheral IV Right Forearm (Active) Placement Date/Time: 06/09/23 1314 Orientation: Right Location: Forearm IV Catheter Size: 18 Gauge Number of start attempts: 1 Procedure Tolerance: Well Number of days: 0 Enteral - Gastrojejunal Abdomen;Left;Upper (Active) Placement Date/Time: 02/25/23 1620 Name/Credentials of person who placed: Dr. lazcano Type: Gastrojejunal Tube Location: Abdomen;Left;Upper Size (FR): 18 Non Licensed Nuclear Plant Operator Name: amt Procedure Tolerance: Well Number of days: 104 Trach Bivona (Active) Placement Date/Time: (c) 06/10/23 0610 Pre-existing airway in place from:: Outside Facility Brand: Bivona Airway Device: (c) Uncuffed Cuff Type: (c) Water (Bivona) Trach size: 5 MM Inner Cannula Size: 5.0 FR Number of days: 0 Indwelling Transurethral Urinary Catheter (Active) Placement Date/Time: 06/10/23 0230 Existing LDA : Outside Facility Name/Credentials of person who placed: unknown Number of days: 0 Code Status : Full Code Jolynn Ann MD [facility] 4 ESSOR OF SPORT MANAGEMENT documented in this encounter H&P Notes * Neha Palomino MD - 06/09/2023 11:46 PM CST Images from the original note were not included. Name: Bi Tabor Admit Date and Time: 06/09/2023 11:36 AM Code Status: Full code Subjective: Chief Complaint: Altered mental status H&P: 63-year-old male with past medical history of epilepsy, chronic hypoxic respiratory failure status post trach, peg tube, hypertension, hyperlipidemia, previous stroke and vascular dementia who was brought to the hospital because of altered mental status. Patient has a history of dementia and the trach making communicating with him challenging. History is limited. In the ED he found to have UTI and was started on ceftriaxone. Past Medical and Surgical: PMH: as above. PSH: Past Surgical History: Procedure Laterality Date ??? ENDOSCOPY, UPPER N/A 03/25/2022 N/A; ESOPHAGOGASTRODUODENOSCOPY (EGD) DIAGNOSTIC with PEG Placement ??? ENT SURGERY N/A 07/15/2022 N/A; TRANSCERVICAL ZENKERS DIVERTICULECTOMY, OPEN TRACHEOSTOMY ??? 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 SINUS SURGERY N/A 11/26/2022 N/A; Bilateral Nasal Endoscopy, Right polypectomy, Right Maxillary Antrostomy, Rihjy Anterior Ethmoidectomy Social and Family History: Social Hx: Social History Socioeconomic History ??? Marital status: [...] of Health Financial Resource Strain: Low Risk (11/28/2022) Overall Financial Resource Strain (CARDIA) ??? Difficulty of Paying Living Expenses: Not hard at all Food Insecurity: No Food Insecurity (11/28/2022) Hunger Vital Sign ??? Worried About Running Out of Food in the Last Year: Never true ??? Ran Out of Food in the Last Year: Never true Transportation Needs: No Transportation Needs (11/28/2022) PRAPARE - Transportation ??? Lack of Transportation (Medical): No ??? Lack of Transportation (Non-Medical): No Stress: No Stress Concern Present (11/28/2022) [employer] - Occupational Stress Questionnaire ??? Feeling of Stress : Not at all Housing Stability: Low Risk (11/28/2022) Housing Stability Vital Sign ??? Unable to Pay for Housing in the Last Year: No ??? Number of Places Lived in the Last Year: 1 ??? Unstable Housing in the Last Year: No Family Hx:No family history on file. Allergies: Allergies Allergen Reactions ??? Clonazepam Psychiatric hallucinations Home Medications: Current Medications acetaminophen (Tylenol) 325 MG tablet 2 (two) tablets by Enteral Tube route every 6 hours as neededMaximum allowable Acetaminophen amount = 4 Grams (4000 mg) / 24 hours. artificial tears ophthalmic ointment Instill into both eyes every 8 hours aspirin (Aspirin) 81 MG chew tablet 1 (one) tablet by Enteral Tube route once daily atorvastatin (Lipitor) 40 MG tablet 1 (one) tablet by Enteral Tube route at bedtime Calcium Carbonate Antacid (calcium carbonate, 500 mg elemental Ca/5 mL,) 1250 MG/5ML suspension 5 mL by Enteral Tube route every 6 hours as needed cloBAZam (Onfi) 10 MG tablet 1 (one) tablet by Enteral Tube route every morning AND 1.5 (one and one-half) tablets every evening. famotidine (Pepcid) 20 MG tablet 1 (one) tablet by Enteral Tube route 2 times daily folic acid (Folvite) 1 MG tablet 1 (one) tablet by Enteral Tube route once daily guaiFENesin (Robitussin) 100 MG/5ML solution 15 mL by Enteral Tube route Every 6 Hours (03,09,15,21) levETIRAcetam (Keppra) 1000 MG tablet 2 (two) tablets by Enteral Tube route 2 times daily metoprolol tartrate IR (Lopressor) 25 MG tablet [...] daily valproic acid (Depakene) 250 MG/5ML solution 10 mL by Per G Tube route 4 times daily Review of Systems Unable to perform ROS: Other Objective: Patient Vitals for the past 24 hrs: Temp Pulse Resp BP 06/09/23 1127 97.8 ??F (36.6 ??C) 98 20 138/88 06/09/23 1144 -- 98 21 136/85 06/09/23 1159 -- 102 20 129/83 06/09/23 1202 -- 103 -- 129/83 06/09/23 1217 -- 98 21 119/77 06/09/23 1232 -- 98 19 140/78 06/09/23 1247 -- 97 19 138/99 06/09/23 1302 -- 104 14 147/90 06/09/23 1317 -- 97 19 145/86 06/09/23 1332 -- 101 17 140/86 06/09/23 1347 -- 98 15 138/75 06/09/23 1402 -- 102 15 149/93 06/09/23 1417 -- 104 21 157/88 06/09/23 1432 -- 105 23 158/90 06/09/23 1447 -- (!) 111 18 164/88 06/09/23 1502 -- 105 23 156/85 06/09/23 1515 -- (!) 115 16 163/93 06/09/23 1530 -- (!) 121 -- 107/59 06/09/23 1540 -- 106 -- 148/89 06/09/23 1545 -- 104 9 160/93 06/09/23 1600 -- 107 17 157/85 06/09/23 1615 -- 106 12 145/83 06/09/23 1631 -- 99 14 160/79 06/09/23 1646 -- 100 11 135/78 06/09/23 1654 -- (!) 111 14 130/89 06/09/23 1701 -- 101 -- 150/80 06/09/23 1719 -- (!) 123 11 154/91 06/09/23 1740 -- 101 20 152/78 06/09/23 1758 -- 104 27 153/84 06/09/23 1818 -- 101 16 (!) 151/139 06/09/23 182 -- 100 15 -- 06/09/23 183 -- 99 -- 160/83 06/09/231917 -- 103 10 163/89 06/09/231945 -- 105 19 151/95 06/09/232002 -- (!) 113 21 -- 06/09/232125 -- -- 12 -- 06/09/232130 -- (!) 111 -- 164/91 06/09/232156 -- 106 25 164/86 06/09/232226 -- (!) 117 24 147/95 06/09/23 2304 -- (!) 110 -- 149/83 06/09/23 2334 -- -- -- 155/85 Physical Exam Vitals and nursing note reviewed. Constitutional: Appearance: Normal appearance. He is not ill-appearing. HENT: Nose: Nose normal. Mouth/Throat: Mouth: Mucous membranes are moist. Eyes: Pupils: Pupils are equal, round, and reactive to light. Cardiovascular: Rate and Rhythm: Tachycardia present. Pulmonary: Effort: No respiratory distress. Abdominal: Tenderness: There is no abdominal tenderness. Neurological: Mental Status: He is alert. LABS: Labs reviewed CBC: Recent Labs Lab Units 06/09/23 1314 WBC x10E9/L 7.3 RBC x10E12/L 4.50 HGB g/dL 14.2 HCT % 43.5 BMP: Recent Labs Lab Units 06/09/23 1314 NA mmol/L 141 CL mmol/L 106 CO2 mmol/L 27 BUN mg/dL 14 CREATININE mg/dL 0.63* CALCIUM mg/dL 9.3 Magnesium: No results for input(s): MG in the last 168 hours. Phosphorus: No results for input(s): PHOS in the last 168 hours. Coagulation: Recent Labs Lab Units 06/09/23 1314 PT Seconds 13.5 INR 1.1 Endocrine: Recent Labs Lab Units 06/09/23 1314 TSH uIU/mL 1.238 LFTs: Recent Labs Lab Units 06/09/23 1314 AST U/L 19 ALT U/L 11 TBILI mg/dL 0.3 ALB g/dL 3.3* Recent Labs Component Name 01/02/23 1008 07/11/22 0040 07/01/22 1634 06/28/22 0141 06/27/22 2215 05/30/22 1750 02/25/21 1134 05/15/19 0911 CKTOTAL 51 49 42 - - - - 63 CKMBCK2 - - - - - - - 0.8 TROPONINI - - - <0.010 <0.010 <0.010 - <0.010 - = values in this interval not displayed. Culture Date/Time Value Ref Range Status 02/27/2023 11:16 AM Light Pseudomonas aeruginosa (Abnormal) Final Comment: Isolate is multi drug resistant organism (MDRO). Isolate is carbapenem resistant 02/27/2023 11:16 AM Light normal oropharyngeal heidi Final 11/28/2022 02:27 PM Heavy Pseudomonas aeruginosa (Abnormal) Final 11/28/2022 02:27 PM Moderate Acinetobacter baumannii (Abnormal) Final Comment: Isolate is multi drug resistant organism (MDRO). Isolate is carbapenem resistant 11/28/2022 02:27 PM Heavy normal oropharyngeal heidi Final 09/19/2022 08:16 AM No growth day 5 Final Results for orders placed or performed during the hospital encounter of 06/09/23 EKG 12-LEAD Result Value Ref Range Ventricular Rate 98 BPM Atrial Rate 98 BPM P-R Interval 164 ms QRS Duration ms 76 ms Q-T Interval ms 336 ms QTC Calculation (Bezet) 428 ms Calculated P Millen 54 degrees Calculated R Millen -22 degrees Calculated T Millen 77 degrees Interpretation EKG NORMAL SINUS RHYTHM SEPTAL INFARCT (CITED ON OR BEFORE 09-OCT-2022) PROBABLE INFERIOR INFARCT , AGE UNDETERMINED ST ELEVATION IN ANTERIOR LEADS ST ELEVATION, CONSIDER EARLY REPOLARIZATION, PERICARDITIS, OR INJURY / aneurysm ABNORMAL ECG WHEN COMPARED WITH ECG OF 31-DEC-2022 21:09, VENT. RATE HAS INCREASED by 28 bpm QRS DURATION HAS DECREASED ST NO LONGER ELEVATED IN INFERIOR LEADS ST LESS ELEVATED IN ANTERIOR LEADS Confirmed by RYANNE HARDEN MD ([id number]) on 06/09/2023 12:46:36 PM Procedure and Consults [facility] (From admission, onward) Start Ordered 06/09/[address] HEAD WO CONTRAST RAD ONE TIME 06/09/23 1143 06/09/23 1145 XR CHEST 1VW PORTABLE RAD ONE TIME 06/09/[address] HEAD WO CONTRAST Result Date: 06/09/2023 IMPRESSION: 1.No acute intracranial abnormality. 2.Chronic findings as described. > InterpretingProvider: Georgia Lees MD, PhD on 06/09/2023 10:59 PM XR CHEST 1VW PORTABLE Result Date: 06/09/2023 IMPRESSION: Very mild left basilar haziness possibly due to small left pleural effusion with adjacent atelectatic changes. > Interpreting Provider: Hermes Lynn MD on 06/09/2023 12:00 PM MEDICATIONS FOR CURRENT ENCOUNTER: ?? SCHEDULED MEDICATIONS: ?? cefTRIAXone (Rocephin) 2,000 mg in 0.9% NaCl IV 50 mL IVPB, Intravenous, q24h ?? iopamidol (Isovue 370) 76 % contrast, Intravenous, Contrast - Once ?? [COMPLETED] lactated ringers IV bolus, Intravenous, Once ?? [COMPLETED] lactated ringers IV bolus, Intravenous, Once ?? [START ON 06/10/2023] 0.9% NaCl injection 3 mL, Intracatheter, q8h ?? [START ON 06/10/2023] artificial tears ophthalmic ointment, Each Eye, q8h ?? [START ON 06/10/2023] aspirin chew tablet 81 mg, Enteral Tube, QDAY ?? [START ON 06/10/2023] atorvastatin (Lipitor) tablet 40 mg, Enteral Tube, AT BEDTIME ?? [START ON 06/10/2023] famotidine (Pepcid) tablet 20 mg, Enteral Tube, BID ?? [START ON 06/10/2023] guaiFENesin (Robitussin) solution 15 mL, Enteral Tube, Every 6 Hours (03,09,15,21) ?? [START ON 06/10/2023] heparin injection 5,000 Units, Subcutaneous, q8h ?? [START ON 06/10/2023] levETIRAcetam (Keppra) tablet 2,000 mg, Enteral Tube, BID ?? [START ON 06/10/2023] metoprolol tartrate IR (Lopressor) tablet 25 mg, Enteral Tube, BID ?? [START ON 06/10/2023] valproic acid (Depakene) solution 500 mg, Per G Tube, 4X/day ?? CONTINUOUS MEDICATIONS: ?? PRN MEDICATIONS: ?? 0.9% NaCl injection 1-10 mL, Intracatheter, PRN Assessment/Plan: Altered mental status UTI Patient has a history of dementia and labs showed UTI. Started currently on ceftriaxone. CT head did not show any acute etiology CT chest abdomen pelvis showed ground-glass opacities in the lower parts of the lung compatible with retained secretions. PEG tube in place. No other acute etiology. History of epilepsy Resume Keppra and lamotrigine Seizure precautions Fall precautions Hypertension Resume home medication Lactic acidosis Secondary to UTI, received fluid and lactic acid trended down to normal. DVT PPx: Heparin subQ GI Prophylaxis: Pepcid Diet: Cardiac This patient was seen by me around 1:30 a.m. on and total time spent on this admission including review of outside records was about 45 minutes. NOTE: Above Assessment, and Plan is based on my first encounter with the patient at the time of night admission and the Data available at hand at that time. Pt is/will be Endorsed to day hospitalist team. Pt and current Data will be re evaluated in AM by day team to update management plan as neededand will be re evaluated daily during the hospital stay by the team for any new information/Historical points/data and will be managed accordingly. Neha Palomino MD 06/09/2023 11:47 PM [employer] documented in this encounter Procedure Notes * Sean Raymundo, - 06/26/2023 9:23 AM CST [facility] EEG REPORT Patient Name: Bi Tabor EEG#: [id number] Recording Start Time: 15:25 PM 06/20/2023 Epoch Start Time: 05:00 AM 06/25/2023 Epoch Stop Time: 10:53 AM 06/26/2023 Clinical History: Bi Tabor is a 63 year old male with altered mental status. This continuous video EEG monitoring is ordered to evaluate for seizures in the setting of altered mental status. Current medications Current Facility-Administered Medications Medication ??? 0.9% NaCl injection 3 mL And ??? 0.9% NaCl injection 1-10 mL ??? acetaminophen (Tylenol) solution 1,000 mg ??? albuterol-ipratropium (Duo-Neb) nebulizer solution 3 mL ??? artificial tears ophthalmic ointment ??? aspirin chew tablet 81 mg ??? atorvastatin (Lipitor) tablet 40 mg ??? bisacodyl (Dulcolax) suppository 10 mg ??? cloBAZam (Onfi) tablet 20 mg ??? famotidine (Pepcid) tablet 20 mg ??? guaiFENesin (Robitussin) solution 15 mL ??? heparin injection 5,000 Units ??? ibuprofen (Motrin) tablet 200 mg ??? lacosamide (Vimpat) tablet 200 mg ??? levETIRAcetam (Keppra) oral solution 2,000 mg ??? metoprolol tartrate IR (Lopressor) tablet 25 mg ??? polyethylene glycol 3350 (Miralax) packet 17 g ??? senna (Senokot) tablet 8.6 mg ??? valproic acid (Depakene) solution 1,000 mg Description This is a continuous video EEG monitoring is 21-channels; consisting of 20 channels of EEG obtainedfrom electrodes placed on the scalp according to the international 10-20 system, T1 and T2 electrodes, and one channel of EKG monitoring. Background: Epoch Start Time: 15:25 PM 06/20/2023 Epoch Stop Time: 05:00 AM 06/21/2023 The background was asymmetric. Posterior dominant rhythm up to 8 Hz of normal amplitude was identified. Anterior-posterior gradient was present. The background was continuous and also included poorly-organized admixed polymorphic theta and delta frequency activity over the right hemisphere. Variability was present. Reactivity was present. Normal sleep architecture was not seen. Right frontal sharp waves were identified Starting at 15:35 PM right posterior quadrant electrographic seizures were seen frequently. These were identified by rhythmic alpha with evolution maximal at P4/O2 spread to P8 and to C4 without any visible clinical correlate on video review. Activation procedures were not performed. Epoch Start Time: 05:00 AM 06/21/2023 Epoch Stop Time: 05:00 AM 06/22/2023 The background was asymmetric. Posterior dominant rhythm up to 8 Hz of normal amplitude was identified. Anterior-posterior gradient was present. The background was continuous and also included poorly-organized admixed polymorphic theta and delta frequency activity over the right hemisphere. Variability was present. Reactivity was present. Normal sleep architecture was not seen. Right frontal sharp waves were identified. Right posterior quadrant electrographic seizures were seen frequently. These were identified by rhythmic alpha with evolution maximal at P4/O2 spread to P8 and to C4 without any visible clinical correlate on video review. At the onset of this epoch, there were as many as 13 seizures within an hour.All brief and focal without clear clinical correlate. By the end of the epoch, there were around 6 seizures per hour of a similar nature. Activation procedures were not performed. Epoch Start Time: 05:00 AM 06/22/2023 Epoch Stop Time: 05:00 AM 06/23/2023 The background was asymmetric. Posterior dominant rhythm up to 8 Hz of normal amplitude was identified. Anterior-posterior gradient was present. The background was continuous and also included poorly-organized admixed polymorphic theta and delta frequency activity over the right hemisphere. Variability was present. Reactivity was present. Normal sleep architecture was not seen. Right frontal sharp waves were identified. Right posterior quadrant electrographic seizures were seen frequently. These were identified by rhythmic alpha with evolution maximal at P4/O2 spread to P8 and to C4 without any visible clinical correlate on video review. At the onset of this epoch, there were as many as 12 seizures within an hour at the end of the epoch there were 10 in an hour. All brief (less than a minute on average) and focal without clear clinical correlate. Activation procedures were not performed. Epoch Start Time: 05:00 AM 06/23/2023 Epoch Stop Time: 05:00 AM 06/24/2023 The background was asymmetric. Posterior dominant rhythm up to 8 Hz of normal amplitude was identified. Anterior-posterior gradient was present. The background was continuous and also included poorly-organized admixed polymorphic theta and delta frequency activity over the right hemisphere. Variability was present. Reactivity was present. Normal sleep architecture was not seen. Right frontal sharp waves were identified. Right posterior quadrant electrographic seizures were seen frequently. These were identified by rhythmic alpha with evolution maximal at P4/O2 spread to P8 and to C4 without any visible clinical correlate on video review. At the onset of this epoch, there were as many as 12 seizures within an hour at the end of the epoch there were 11 in an hour. All brief (less than a minute on average) and focal without clear clinical correlate. Activation procedures were not performed. Epoch Start Time: 05:00 AM 06/24/2023 Epoch Stop Time: 05:00 AM 06/25/2023 The background was asymmetric. Posterior dominant rhythm up to 8 Hz of normal amplitude was identified. Anterior-posterior gradient was present. The background was continuous and also included poorly-organized admixed polymorphic theta and delta frequency activity over the right hemisphere. Variability was present. Reactivity was present. Normal sleep architecture was not seen. Right frontal sharp waves were identified. Right posterior quadrant electrographic seizures were seen frequently. These were identified by rhythmic alpha with evolution maximal at P4/O2 spread to P8 and to C4 without any visible clinical correlate on video review. At the onset of this epoch, there were as many as 13 seizures within an hour at the end of the epoch there were 11 in an hour. All brief (less than a minute on average) and focal without clear clinical correlate. After around 11 PM the seizures became on average shorter, oftenmore consistent with brief ictal rhythmic discharges (BIRDS) with only 3 definite seizures from 11 PM to 2 AM. Activation procedures were not performed. Epoch Start Time: 05:00 AM 06/25/2023 Epoch Stop Time: 10:53 AM 06/26/2023 The background was asymmetric. Posterior dominant rhythm up to 8 Hz of normal amplitude was identified. Anterior-posterior gradient was present. The background was continuous and also included poorly-organized admixed polymorphic theta and delta frequency activity over the right hemisphere. Variability was present. Reactivity was present. Normal sleep architecture was not seen. Right frontal sharp waves were identified. Right posterior quadrant electrographic seizures were seen frequently. These were identified by rhythmic alpha with evolution maximal at P4/O2 spread to P8 and to C4 without any visible clinical correlate on video review. The seizures were brief lasting usually less than 30 seconds. Often borderline between electrographic seizures and brief ictal rhythmic discharges (BIRDS). The number did not decrease relative to the previous epoch, but the individual seizures were less prolonged. Activation procedures were not performed. EKG was observed throughout the recording. IMPRESSION This is an abnormal cEEG due to 1) focal right posterior quadrant electrographic seizures 2) right frontal epileptiform discharges and 3) right hemispheric slowing CLINICAL CORRELATION: From 06/20-06/21/2023 frequent electrographic seizures were seen without definite clinical correlate. From 06/21-06/22/2023 frequent electrographic seizures with decreasing frequency during the epoch were seen without definite clinical correlate. From 06/22-06/23/2023 frequent electrographic seizures with decreasing frequency during the epoch were seen without definite clinical correlate. From 06/23-06/24/2023 frequent electrographic seizures were seen without definite clinical correlate. From 06/24-06/25/2023 frequent electrographic seizures were seen without definite clinical correlate.The duration of individual seizures decreased significantly during this epoch and there was a lull in seizures lasting about 3 hours overnight with greatly decreased numbers of seizures. From 06/25-06/26/2023 frequent electrographic seizures were seen without definite clinical correlate.The duration of individual seizures was significantly decreased compared to previous epochs, but the overall number did not significantly decrease. Sean Raymundo DO [employer] * Jose Antonio Eastman - 06/25/2023 7:54 PM CSTProcedure(s): EEG VIDEO MONITORING Pt checked, no corrections needed at this time. All electrode impedances are below 10K Ohms. Current vitals noted in the cEEG recording. [employer] * Lauryn Rankin - 06/25/2023 8:48 AM CST Skin check: Fp1-good, no skin issues. [employer] * Sean Raymundo DO - 06/25/2023 7:50 AM CST [facility] EEG REPORT Patient Name: Bi Tabor EEG#: [id number] Recording Start Time: 15:25 PM 06/20/2023 Epoch Start Time: 05:00 AM 06/24/2023 Epoch Stop Time: 05:00 AM 06/25/2023 Clinical History: Bi Tabor is a 63 year old male with altered mental status. This continuous video EEG monitoring is ordered to evaluate for seizures in the setting of altered mental status. Current medications Current Facility-Administered Medications Medication ??? 0.9% NaCl injection 3 mL And ??? 0.9% NaCl injection 1-10 mL ??? acetaminophen (Tylenol) tablet 1,000 mg ??? artificial tears ophthalmic ointment ??? aspirin chew tablet 81 mg ??? atorvastatin (Lipitor) tablet 40 mg ??? cloBAZam (Onfi) tablet 20 mg ??? famotidine (Pepcid) tablet 20 mg ??? guaiFENesin (Robitussin) solution 15 mL ??? heparin injection 5,000 Units ??? ibuprofen (Motrin) tablet 200 mg ??? lacosamide (Vimpat) tablet 200 mg ??? levETIRAcetam (Keppra) tablet 2,000 mg ??? metoprolol tartrate IR (Lopressor) tablet 25 mg ??? valproic acid (Depakene) solution 1,000 mg Description This is a continuous video EEG monitoring is 21-channels; consisting of 20 channels of EEG obtainedfrom electrodes placed on the scalp according to the international 10-20 system, T1 and T2 electrodes, and one channel of EKG monitoring. Background: Epoch Start Time: 15:25 PM 06/20/2023 Epoch Stop Time: 05:00 AM 06/21/2023 The background was asymmetric. Posterior dominant rhythm up to 8 Hz of normal amplitude was identified. Anterior-posterior gradient was present. The background was continuous and also included poorly-organized admixed polymorphic theta and delta frequency activity over the right hemisphere. Variability was present. Reactivity was present. Normal sleep architecture was not seen. Right frontal sharp waves were identified Starting at 15:35 PM right posterior quadrant electrographic seizures were seen frequently. These were identified by rhythmic alpha with evolution maximal at P4/O2 spread to P8 and to C4 without any visible clinical correlate on video review. Activation procedures were not performed. Epoch Start Time: 05:00 AM 06/21/2023 Epoch Stop Time: 05:00 AM 06/22/2023 The background was asymmetric. Posterior dominant rhythm up to 8 Hz of normal amplitude was identified. Anterior-posterior gradient was present. The background was continuous and also included poorly-organized admixed polymorphic theta and delta frequency activity over the right hemisphere. Variability was present. Reactivity was present. Normal sleep architecture was not seen. Right frontal sharp waves were identified. Right posterior quadrant electrographic seizures were seen frequently. These were identified by rhythmic alpha with evolution maximal at P4/O2 spread to P8 and to C4 without any visible clinical correlate on video review. At the onset of this epoch, there were as many as 13 seizures within an hour.All brief and focal without clear clinical correlate. By the end of the epoch, there were around 6 seizures per hour of a similar nature. Activation procedures were not performed. Epoch Start Time: 05:00 AM 06/22/2023 Epoch Stop Time: 05:00 AM 06/23/2023 The background was asymmetric. Posterior dominant rhythm up to 8 Hz of normal amplitude was identified. Anterior-posterior gradient was present. The background was continuous and also included poorly-organized admixed polymorphic theta and delta frequency activity over the right hemisphere. Variability was present. Reactivity was present. Normal sleep architecture was not seen. Right frontal sharp waves were identified. Right posterior quadrant electrographic seizures were seen frequently. These were identified by rhythmic alpha with evolution maximal at P4/O2 spread to P8 and to C4 without any visible clinical correlate on video review. At the onset of this epoch, there were as many as 12 seizures within an hour at the end of the epoch there were 10 in an hour. All brief (less than a minute on average) and focal without clear clinical correlate. Activation procedures were not performed. Epoch Start Time: 05:00 AM 06/23/2023 Epoch Stop Time: 05:00 AM 06/24/2023 The background was asymmetric. Posterior dominant rhythm up to 8 Hz of normal amplitude was identified. Anterior-posterior gradient was present. The background was continuous and also included poorly-organized admixed polymorphic theta and delta frequency activity over the right hemisphere. Variability was present. Reactivity was present. Normal sleep architecture was not seen. Right frontal sharp waves were identified. Right posterior quadrant electrographic seizures were seen frequently. These were identified by rhythmic alpha with evolution maximal at P4/O2 spread to P8 and to C4 without any visible clinical correlate on video review. At the onset of this epoch, there were as many as 12 seizures within an hour at the end of the epoch there were 11 in an hour. All brief (less than a minute on average) and focal without clear clinical correlate. Activation procedures were not performed. Epoch Start Time: 05:00 AM 06/24/2023 Epoch Stop Time: 05:00 AM 06/25/2023 The background was asymmetric. Posterior dominant rhythm up to 8 Hz of normal amplitude was identified. Anterior-posterior gradient was present. The background was continuous and also included poorly-organized admixed polymorphic theta and delta frequency activity over the right hemisphere. Variability was present. Reactivity was present. Normal sleep architecture was not seen. Right frontal sharp waves were identified. Right posterior quadrant electrographic seizures were seen frequently. These were identified by rhythmic alpha with evolution maximal at P4/O2 spread to P8 and to C4 without any visible clinical correlate on video review. At the onset of this epoch, there were as many as 13 seizures within an hour at the end of the epoch there were 11 in an hour. All brief (less than a minute on average) and focal without clear clinical correlate. After around 11 PM the seizures became on average shorter, oftenmore consistent with brief ictal rhythmic discharges (BIRDS) with only 3 definite seizures from 11 PM to 2 AM. Activation procedures were not performed. EKG was observed throughout the recording. IMPRESSION This is an abnormal cEEG due to 1) focal right posterior quadrant electrographic seizures 2) right frontal epileptiform discharges and 3) right hemispheric slowing CLINICAL CORRELATION: From 06/20-06/21/2023 frequent electrographic seizures were seen without definite clinical correlate. From 06/21-06/22/2023 frequent electrographic seizures with decreasing frequency during the epoch were seen without definite clinical correlate. From 06/22-06/23/2023 frequent electrographic seizures with decreasing frequency during the epoch were seen without definite clinical correlate. From 06/23-06/24/2023 frequent electrographic seizures were seen without definite clinical correlate. From 06/24-06/25/2023 frequent electrographic seizures were seen without definite clinical correlate.The duration of individual seizures decreased significantly during this epoch and there was a lull in seizures lasting about 3 hours overnight with greatly decreased numbers of seizures. Sean Raymundo DO OT * EastmanJose Antonio - 06/24/2023 7:47 PM CSTProcedure(s): EEG VIDEO MONITORING Pt checked, corrections made electrode P3. All electrode impedances are below 10K Ohms. Current vitals noted in the cEEG recording. [employer] * Sean Raymundo DO - 06/24/2023 10:22 AM CST [facility] EEG REPORT Patient Name: Bi Tabor EEG#: [id number] Recording Start Time: 15:25 PM 06/20/2023 Epoch Start Time: 05:00 AM 06/23/2023 Epoch Stop Time: 05:00 AM 06/24/2023 Clinical History: Bi Tabor is a 63 year old male with altered mental status. This continuous video EEG monitoring is ordered to evaluate for seizures in the setting of altered mental status. Current medications Current Facility-Administered Medications Medication ??? 0.9% NaCl injection 3 mL And ??? 0.9% NaCl injection 1-10 mL ??? acetaminophen (Tylenol) tablet 1,000 mg ??? artificial tears ophthalmic ointment ??? aspirin chew tablet 81 mg ??? atorvastatin (Lipitor) tablet 40 mg ??? cloBAZam (Onfi) tablet 20 mg ??? famotidine (Pepcid) tablet 20 mg ??? guaiFENesin (Robitussin) solution 15 mL ??? heparin injection 5,000 Units ??? ibuprofen (Motrin) tablet 200 mg ??? lacosamide (Vimpat) tablet 200 mg ??? levETIRAcetam (Keppra) tablet 2,000 mg ??? metoprolol tartrate IR (Lopressor) tablet 25 mg ??? valproate (Depacon) 1,460 mg in 0.9% NaCl IV 64.6 mL IVPB ??? valproic acid (Depakene) solution 1,000 mg Description This is a continuous video EEG monitoring is 21-channels; consisting of 20 channels of EEG obtainedfrom electrodes placed on the scalp according to the international 10-20 system, T1 and T2 electrodes, and one channel of EKG monitoring. Background: Epoch Start Time: 15:25 PM 06/20/2023 Epoch Stop Time: 05:00 AM 06/21/2023 The background was asymmetric. Posterior dominant rhythm up to 8 Hz of normal amplitude was identified. Anterior-posterior gradient was present. The background was continuous and also included poorly-organized admixed polymorphic theta and delta frequency activity over the right hemisphere. Variability was present. Reactivity was present. Normal sleep architecture was not seen. Right frontal sharp waves were identified Starting at 15:35 PM right posterior quadrant electrographic seizures were seen frequently. These were identified by rhythmic alpha with evolution maximal at P4/O2 spread to P8 and to C4 without any visible clinical correlate on video review. Activation procedures were not performed. Epoch Start Time: 05:00 AM 06/21/2023 Epoch Stop Time: 05:00 AM 06/22/2023 The background was asymmetric. Posterior dominant rhythm up to 8 Hz of normal amplitude was identified. Anterior-posterior gradient was present. The background was continuous and also included poorly-organized admixed polymorphic theta and delta frequency activity over the right hemisphere. Variability was present. Reactivity was present. Normal sleep architecture was not seen. Right frontal sharp waves were identified. Right posterior quadrant electrographic seizures were seen frequently. These were identified by rhythmic alpha with evolution maximal at P4/O2 spread to P8 and to C4 without any visible clinical correlate on video review. At the onset of this epoch, there were as many as 13 seizures within an hour.All brief and focal without clear clinical correlate. By the end of the epoch, there were around 6 seizures per hour of a similar nature. Activation procedures were not performed. Epoch Start Time: 05:00 AM 06/22/2023 Epoch Stop Time: 05:00 AM 06/23/2023 The background was asymmetric. Posterior dominant rhythm up to 8 Hz of normal amplitude was identified. Anterior-posterior gradient was present. The background was continuous and also included poorly-organized admixed polymorphic theta and delta frequency activity over the right hemisphere. Variability was present. Reactivity was present. Normal sleep architecture was not seen. Right frontal sharp waves were identified. Right posterior quadrant electrographic seizures were seen frequently. These were identified by rhythmic alpha with evolution maximal at P4/O2 spread to P8 and to C4 without any visible clinical correlate on video review. At the onset of this epoch, there were as many as 12 seizures within an hour at the end of the epoch there were 10 in an hour. All brief (less than a minute on average) and focal without clear clinical correlate. Activation procedures were not performed. Epoch Start Time: 05:00 AM 06/23/2023 Epoch Stop Time: 05:00 AM 06/24/2023 The background was asymmetric. Posterior dominant rhythm up to 8 Hz of normal amplitude was identified. Anterior-posterior gradient was present. The background was continuous and also included poorly-organized admixed polymorphic theta and delta frequency activity over the right hemisphere. Variability was present. Reactivity was present. Normal sleep architecture was not seen. Right frontal sharp waves were identified. Right posterior quadrant electrographic seizures were seen frequently. These were identified by rhythmic alpha with evolution maximal at P4/O2 spread to P8 and to C4 without any visible clinical correlate on video review. At the onset of this epoch, there were as many as 12 seizures within an hour at the end of the epoch there were 11 in an hour. All brief (less than a minute on average) and focal without clear clinical correlate. Activation procedures were not performed. EKG was observed throughout the recording. IMPRESSION This is an abnormal cEEG due to 1) focal right posterior quadrant electrographic seizures 2) right frontal epileptiform discharges and 3) right hemispheric slowing CLINICAL CORRELATION: From 06/20-06/21/2023 frequent electrographic seizures were seen without definite clinical correlate. From 06/21-06/22/2023 frequent electrographic seizures with decreasing frequency during the epoch were seen without definite clinical correlate. From 06/22-06/23/2023 frequent electrographic seizures with decreasing frequency during the epoch were seen without definite clinical correlate. From 06/23-06/24/2023 frequent electrographic seizures were seen without definite clinical correlate. Sean Raymundo DO [employer] * Jose Antonio Eastman - 06/23/2023 7:42 PM CSTProcedure(s): EEG VIDEO MONITORING Pt checked impedance corrections made to electrodes T2 and FZ. All electrode impedances are below 10k Ohms. Skin check performed, no breakdown seen under T2 electrode. No current vitals to note in the cEEG recording. [employer] * Sean Raymundo DO - 06/23/2023 9:57 AM CST [facility] EEG REPORT Patient Name: Bi Tabor EEG#: [id number] Recording Start Time: 15:25 PM 06/20/2023 Epoch Start Time: 05:00 AM 06/22/2023 Epoch Stop Time: 05:00 AM 06/23/2023 Clinical History: Bi Tabor is a 63 year old male with altered mental status. This continuous video EEG monitoring is ordered to evaluate for seizures in the setting of altered mental status. Current medications Current Facility-Administered Medications Medication ??? 0.9% NaCl injection 3 mL And ??? 0.9% NaCl injection 1-10 mL ??? acetaminophen (Tylenol) tablet 1,000 mg ??? artificial tears ophthalmic ointment ??? aspirin chew tablet 81 mg ??? atorvastatin (Lipitor) tablet 40 mg ??? cloBAZam (Onfi) tablet 20 mg ??? famotidine (Pepcid) tablet 20 mg ??? guaiFENesin (Robitussin) solution 15 mL ??? heparin injection 5,000 Units ??? ibuprofen (Motrin) tablet 200 mg ??? lacosamide (Vimpat) tablet 200 mg ??? levETIRAcetam (Keppra) tablet 2,000 mg ??? metoprolol tartrate IR (Lopressor) tablet 25 mg ??? valproic acid (Depakene) solution 750 mg Description This is a continuous video EEG monitoring is 21-channels; consisting of 20 channels of EEG obtainedfrom electrodes placed on the scalp according to the international 10-20 system, T1 and T2 electrodes, and one channel of EKG monitoring. Background: Epoch Start Time: 15:25 PM 06/20/2023 Epoch Stop Time: 05:00 AM 06/21/2023 The background was asymmetric. Posterior dominant rhythm up to 8 Hz of normal amplitude was identified. Anterior-posterior gradient was present. The background was continuous and also included poorly-organized admixed polymorphic theta and delta frequency activity over the right hemisphere. Variability was present. Reactivity was present. Normal sleep architecture was not seen. Right frontal sharp waves were identified Starting at 15:35 PM right posterior quadrant electrographic seizures were seen frequently. These were identified by rhythmic alpha with evolution maximal at P4/O2 spread to P8 and to C4 without any visible clinical correlate on video review. Activation procedures were not performed. Epoch Start Time: 05:00 AM 06/21/2023 Epoch Stop Time: 05:00 AM 06/22/2023 The background was asymmetric. Posterior dominant rhythm up to 8 Hz of normal amplitude was identified. Anterior-posterior gradient was present. The background was continuous and also included poorly-organized admixed polymorphic theta and delta frequency activity over the right hemisphere. Variability was present. Reactivity was present. Normal sleep architecture was not seen. Right frontal sharp waves were identified. Right posterior quadrant electrographic seizures were seen frequently. These were identified by rhythmic alpha with evolution maximal at P4/O2 spread to P8 and to C4 without any visible clinical correlate on video review. At the onset of this epoch, there were as many as 13 seizures within an hour.All brief and focal without clear clinical correlate. By the end of the epoch, there were around 6 seizures per hour of a similar nature. Activation procedures were not performed. Epoch Start Time: 05:00 AM 06/22/2023 Epoch Stop Time: 05:00 AM 06/23/2023 The background was asymmetric. Posterior dominant rhythm up to 8 Hz of normal amplitude was identified. Anterior-posterior gradient was present. The background was continuous and also included poorly-organized admixed polymorphic theta and delta frequency activity over the right hemisphere. Variability was present. Reactivity was present. Normal sleep architecture was not seen. Right frontal sharp waves were identified. Right posterior quadrant electrographic seizures were seen frequently. These were identified by rhythmic alpha with evolution maximal at P4/O2 spread to P8 and to C4 without any visible clinical correlate on video review. At the onset of this epoch, there were as many as 12 seizures within an hour at the end of the epoch there were 10 in an hour. All brief (less than a minute on average) and focal without clear clinical correlate. Activation procedures were not performed. EKG was observed throughout the recording. IMPRESSION This is an abnormal cEEG due to 1) focal right posterior quadrant electrographic seizures 2) right frontal epileptiform discharges and 3) right hemispheric slowing CLINICAL CORRELATION: From 06/20-06/21/2023 frequent electrographic seizures were seen without definite clinical correlate. From 06/21-06/22/2023 frequent electrographic seizures with decreasing frequency during the epoch were seen without definite clinical correlate. From 06/22-06/23/2023 frequent electrographic seizures with decreasing frequency during the epoch were seen without definite clinical correlate. Sean Raymundo DO [employer] * Marcella Curtis - 06/23/2023 5:54 AM CSTProcedure(s): EEG VIDEO MONITORING 5AM ROOM CHECK. LETTER CHANGED FOR THE NEW FILE DATE, VITALS, IMP CHECK, PATIENT BODY POSITION AND HLC NOTED ON THE RUNNING STUDY. [employer] * Marcella Curtis - 06/23/2023 1:19 AM CSTProcedure(s): EEG VIDEO MONITORING ROOM CHECK DONE. IMP CHECK, VITALS AND BODY POSITION ALL NOTED ON RUNNING STUDY. [employer] * Marcella Curtis - 06/22/2023 7:56 PM CSTProcedure(s): EEG VIDEO MONITORING ROOM CHECK DONE. IMP CHECK, VITALS AND BODY POSITION ALL NOTED ON RUNNING STUDY. [employer] * Leandro Redd - 06/22/2023 10:21 AM CSTProcedure(s): EEG VIDEO MONITORING All electrode impedance are below 10k ohms; vitals are noted on the ceeg; files are current and on network; no skin breakdown; checked under T1, [employer] * Sean Raymundo DO - 06/22/2023 9:35 AM CST [facility] EEG REPORT Patient Name: Bi Tabor EEG#: [id number] Recording Start Time: 15:25 PM 06/20/2023 Epoch Start Time: 05:00 AM 06/21/2023 Epoch Stop Time: 05:00 AM 06/22/2023 Clinical History: Bi Tabor is a 63 year old male with altered mental status. This continuous video EEG monitoring is ordered to evaluate for seizures in the setting of altered mental status. Current medications Current Facility-Administered Medications Medication ??? 0.9% NaCl injection 3 mL And ??? 0.9% NaCl injection 1-10 mL ??? acetaminophen (Tylenol) tablet 1,000 mg ??? artificial tears ophthalmic ointment ??? aspirin chew tablet 81 mg ??? atorvastatin (Lipitor) tablet 40 mg ??? cloBAZam (Onfi) tablet 20 mg ??? famotidine (Pepcid) tablet 20 mg ??? guaiFENesin (Robitussin) solution 15 mL ??? heparin injection 5,000 Units ??? ibuprofen (Motrin) tablet 200 mg ??? lacosamide (Vimpat) tablet 200 mg ??? levETIRAcetam (Keppra) tablet 2,000 mg ??? metoprolol tartrate IR (Lopressor) tablet 25 mg ??? valproic acid (Depakene) solution 750 mg Description This is a continuous video EEG monitoring is 21-channels; consisting of 20 channels of EEG obtainedfrom electrodes placed on the scalp according to the international 10-20 system, T1 and T2 electrodes, and one channel of EKG monitoring. Background: Epoch Start Time: 15:25 PM 06/20/2023 Epoch Stop Time: 05:00 AM 06/21/2023 The background was asymmetric. Posterior dominant rhythm up to 8 Hz of normal amplitude was identified. Anterior-posterior gradient was present. The background was continuous and also included poorly-organized admixed polymorphic theta and delta frequency activity over the right hemisphere. Variability was present. Reactivity was present. Normal sleep architecture was not seen. Right frontal sharp waves were identified Starting at 15:35 PM right posterior quadrant electrographic seizures were seen frequently. These were identified by rhythmic alpha with evolution maximal at P4/O2 spread to P8 and to C4 without any visible clinical correlate on video review. Activation procedures were not performed. Epoch Start Time: 05:00 AM 06/21/2023 Epoch Stop Time: 05:00 AM 06/22/2023 The background was asymmetric. Posterior dominant rhythm up to 8 Hz of normal amplitude was identified. Anterior-posterior gradient was present. The background was continuous and also included poorly-organized admixed polymorphic theta and delta frequency activity over the right hemisphere. Variability was present. Reactivity was present. Normal sleep architecture was not seen. Right frontal sharp waves were identified. Right posterior quadrant electrographic seizures were seen frequently. These were identified by rhythmic alpha with evolution maximal at P4/O2 spread to P8 and to C4 without any visible clinical correlate on video review. At the onset of this epoch, there were as many as 13 seizures within an hour.All brief and focal without clear clinical correlate. By the end of the epoch, there were around 6 seizures per hour of a similar nature. Activation procedures were not performed. EKG was observed throughout the recording. IMPRESSION This is an abnormal cEEG due to 1) focal right posterior quadrant electrographic seizures 2) right frontal epileptiform discharges and 3) right hemispheric slowing CLINICAL CORRELATION: From 06/20-06/21/2023 frequent electrographic seizures were seen without definite clinical correlate. From 06/21-06/22/2023 frequent electrographic seizures with decreasing frequency during the epoch were seen without definite clinical correlate. Sean Raymundo DO [employer] * Marcella Curtis - 06/22/2023 5:43 AM CST Room check, vitals and body position along with Imp check all noted on running study. Letter changed for new file date. [employer] Marcella Damon - 06/22/2023 5:32 AM CST Room check, vitals and body position along with Imp check all noted on running study. Letter changed for new file date. [employer] Marcella Damon - 06/22/2023 1:41 AM CSTProcedure(s): EEG VIDEO MONITORING ROOM CHECK, VITALS AND BODY POSITION ALONG WITH IMP CHECK ALL NOTED ON RUNNING STUDY [employer] Marcella Damon - 06/21/2023 6:53 PM CSTProcedure(s): EEG VIDEO MONITORING ROOM CHECK DONE. VITAL AND BODY POSITION WERE NOTED ON THE RUNNING STUDY. [employer] * Leandro Redd - 06/21/2023 10:27 AM CSTProcedure(s): EEG VIDEO MONITORING All electrode impedance are below 10k ohms; vitals are noted on the ceeg; files are current on network. [employer] * Sean Raymundo DO - 06/21/2023 9:09 AM CST [facility] EEG REPORT Patient Name: Bi Tabor EEG#: [id number] Recording Start Time: 15:25 PM 06/20/2023 Epoch Start Time: 15:25 PM 06/20/2023 Epoch Stop Time: 05:00 AM 06/21/2023 Clinical History: Bi Tabor is a 63 year old male with altered mental status. This continuous video EEG monitoring is ordered to evaluate for seizures in the setting of altered mental status. Current medications Current Facility-Administered Medications Medication ??? 0.9% NaCl injection 3 mL And ??? 0.9% NaCl injection 1-10 mL ??? acetaminophen (Tylenol) tablet 1,000 mg ??? artificial tears ophthalmic ointment ??? aspirin chew tablet 81 mg ??? atorvastatin (Lipitor) tablet 40 mg ??? cloBAZam (Onfi) tablet 10 mg And ??? cloBAZam (Onfi) tablet 15 mg ??? famotidine (Pepcid) tablet 20 mg ??? guaiFENesin (Robitussin) solution 15 mL ??? heparin injection 5,000 Units ??? ibuprofen (Motrin) tablet 200 mg ??? [START ON 06/21/2023] lacosamide (Vimpat) tablet 200 mg ??? levETIRAcetam (Keppra) tablet 2,000 mg ??? metoprolol tartrate IR (Lopressor) tablet 25 mg ??? valproic acid (Depakene) solution 500 mg Description This is a continuous video EEG monitoring is 21-channels; consisting of 20 channels of EEG obtainedfrom electrodes placed on the scalp according to the international 10-20 system, T1 and T2 electrodes, and one channel of EKG monitoring. Background: Epoch Start Time: 15:25 PM 06/20/2023 Epoch Stop Time: 05:00 AM 06/21/2023 The background was asymmetric. Posterior dominant rhythm up to 8 Hz of normal amplitude was identified. Anterior-posterior gradient was present. The background was continuous and also included poorly-organized admixed polymorphic theta and delta frequency activity over the right hemisphere. Variability was present. Reactivity was present. Normal sleep architecture was not seen. Right frontal sharp waves were identified Starting at 15:35 PM right posterior quadrant electrographic seizures were seen frequently. These were identified by rhythmic alpha with evolution maximal at P4/O2 spread to P8 and to C4 without any visible clinical correlate on video review. Activation procedures were not performed. EKG was observed throughout the recording. IMPRESSION This is an abnormal cEEG due to 1) focal right posterior quadrant electrographic seizures 2) right frontal epileptiform discharges and 3) right hemispheric slowing CLINICAL CORRELATION: From 06/20-06/21/2023 frequent electrographic seizures were seen without definite clinical correlate. Sean Raymundo DO [employer] * Marcella Curtis - 06/21/2023 5:50 AM CSTProcedure(s): EEG VIDEO MONITORING ROOM CHECK DONE, IMP UNDER 10, VITALS AND BODY POSITION AND NOTED ON RUNNING STUDY. LETTER WAS CHANGED FOR THE NEW FILE. [employer] * Marcella Curtis - 06/21/2023 12:31 AM CSTProcedure(s): EEG VIDEO MONITORING ROOM CHECK DONE, IMP UNDER 10, VITALS AND BODY POSITION ALL NOTED ON RUNNING STUDY. [employer] * Marcella Curtis - 06/20/2023 7:21 PM CSTProcedure(s): EEG VIDEO MONITORING ROOM CHECK DONE, IMP UNDER 10, VITALS AND BODY POSITION ALL NOTED ON RUNNING STUDY. [employer] * Gianna August - 06/20/2023 5:11 PM CST MRI electrodes attached. [employer] documented in this encounter Consult Notes * Gaurav Juarez MSW - 06/14/2023 12:53 PM CSTAssociated Order(s): IP CONSULT TO [facility] Care Coordination Progress Note Anticipated level of care at discharge: [facility] - Skilled Facility: Anticipated level of care provider: [facility] (formerly [facility] and [facility]): Anticipated Discharge Date: 06/17/23: Discharge Plan: SW aware this pt is from [facility] ([facility]SW to plan for this pt to DC back to SNF once the pt is medically ready. Orientation Level: Oriented to Person;Oriented to Place;Disoriented to Situation;Disoriented to Time: Family Support (Name and Phone): Extended Emergency Contact Information Primary Emergency Contact: Adriane Hilliard Mobile Relation: Sister Tray Drier needed? No Secondary Emergency Contact: Amarjit Tabor [facility] Relation: Brother Transportation at Discharge: Ambulance: READMISSION RISK SCORE is 22 at 12:53 PM 06/14/2023.: Name: CLARITA Ram [employer] * Griselda Owens MD - 06/11/2023 12:10 PM CSTAssociated Order(s): IP CONSULT TO INFECTIOUS DISEASES [facility] Infectious Diseases Consultation Patient Name: Bi Tabor 1960 Room: [facility] Date of Admission: 06/09/2023 Date of Service: 06/11/2023 Primary Care Physician: Joyce Luevano APRN-BELINDA Attending Physician: Garuav Nogueira MD Reason for consultation: Possible PNA with MDR Pseudomonas and UTI HPI: 63 year old male with PMH of HTN, CVA, vascular dementia, epilepsy, chronic hypoxic respiratory failure s/p trach admitted on 06/09 for mental status change. With concern for UTI, he was started on ceftriaxone which was changed to cefepime when he had fever. UA showed >100 WBC and urine culture grew Pseudomonas (<10,000 colonies and yeast). CT C/A/P (06/09) showed bilateral GGO and bronchial wall thickening. Patient no verbal, follows some commands but not able to write and therefore, history obtained fromelectronic medical record. Per his nurse, patient has thick and yellowish tracheal secretion. He has no decubitus ulcer. Past Medical History: Diagnosis Date ??? Cerebrovascular disease ??? HTN (hypertension) ??? Seizure (CMS-HCC) Past Surgical History: Procedure Laterality Date ??? ENDOSCOPY, UPPER N/A 03/25/2022 N/A; ESOPHAGOGASTRODUODENOSCOPY (EGD) DIAGNOSTIC with PEG Placement ??? ENT SURGERY N/A 07/15/2022 N/A; TRANSCERVICAL ZENKERS DIVERTICULECTOMY, OPEN TRACHEOSTOMY ??? 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 SINUS SURGERY N/A 11/26/2022 N/A; Bilateral Nasal Endoscopy, Right polypectomy, Right Maxillary Antrostomy, Rihjy Anterior Ethmoidectomy Family History: None contributory Social History: Not obtained because patient is nonverbal (has trach) and not able to write (difficulty in moving arms). He lives in [place]. Allergies: Allergies Allergen Reactions ??? Clonazepam Psychiatric hallucinations ROS: 12 points review of system negative except points mentioned in HPI. Home medications: Prior to Admission medications Medication Sig Start Date End Date Taking? Authorizing Provider acetaminophen (Tylenol) 325 MG tablet 2 (two) tablets by Enteral Tube route every 6 hours as neededMaximum allowable Acetaminophen amount = 4 Grams (4000 mg) / 24 hours. 01/12/23 Felicitas Almanzar MD artificial tears ophthalmic ointment Instill into both eyes every 8 hours 10/22/22 Randa Mccurdy MD aspirin (Aspirin) 81 MG chew tablet 1 (one) tablet by Enteral Tube route once daily Provider, MD Filemon atorvastatin (Lipitor) 40 MG tablet 1 (one) tablet by Enteral Tube route at bedtime 02/28/23 Paige Brewster MD Calcium Carbonate Antacid (calcium carbonate, 500 mg elemental Ca/5 mL,) 1250 MG/5ML suspension 5 mL by Enteral Tube route every 6 hours as needed 02/28/23 Paige Brewster MD cloBAZam (Onfi) 10 MG tablet 1 (one) tablet by Enteral Tube route every morning AND 1.5 (one and one-half) tablets every evening. 05/18/23 Yana Rm, [employer] famotidine (Pepcid) 20 MG tablet 1 (one) tablet by Enteral Tube route 2 times daily 02/28/23 Paige Brewster MD folic acid (Folvite) 1 MG tablet 1 (one) tablet by Enteral Tube route once daily 04/01/22 Dante Nuno MD guaiFENesin (Robitussin) 100 MG/5ML solution 15 mL by Enteral Tube route Every 6 Hours (03,09,15,) 02/28/23 Paige Brewster MD levETIRAcetam (Keppra) 1000 MG tablet 2 (two) tablets by Enteral Tube route 2 times daily 02/28/23 Paige Brewster MD metoprolol tartrate IR (Lopressor) 25 MG tablet 1 (one) tablet by Enteral Tube route 2 times daily 12/15/22 Miller Gomes DO pantoprazole (Protonix) 40 MG packet Take 1 (one) packet by mouth once daily 01/12/23 Felicitas Almanzar MD polyethylene glycol 3350 (Miralax) 17 g packet 17 (seventeen) g by Enteral Tube route 2 times daily02/28/23 Paige Brewster MD senna (Senokot) 8.6 MG tablet 1 (one) tablet by Enteral Tube route once daily 03/01/23 Paige Brewster MD thiamine (Vitamin B-1) 100 MG tablet 1 (one) tablet by Enteral Tube route once daily 04/01/22 Dante Nuno MD valproic acid (Depakene) 250 MG/5ML solution 10 mL by Per G Tube route 4 times daily 02/28/23 Paige Brewster MD Inpatient medications ??? 0.9% NaCl 3 mL Intracatheter q8h ??? artificial tears Each Eye q8h ??? aspirin 81 mg Enteral Tube QDAY ??? atorvastatin 40 mg Enteral Tube AT BEDTIME ??? cefepime 2 g Intravenous q8h ??? cloBAZam 10 mg Enteral Tube QAM And ??? cloBAZam 15 mg Enteral Tube QPM ??? famotidine 20 mg Enteral Tube BID ??? guaiFENesin 15 mL Enteral Tube Every 6 Hours (03,09,15,21) ??? heparin 5,000 Units Subcutaneous q8h ??? iopamidol Intravenous Contrast - Once ??? levETIRAcetam 2,000 mg Enteral Tube BID ??? metoprolol tartrate IR 25 mg Enteral Tube BID ??? valproic acid 500 mg Per G Tube 4X/day OBJECTIVE: Vital Signs: BP 117/74 Pulse 91 Temp (!) 102.1 ??F (38.9 ??C) Resp 18 Ht 1.778 m (5' 10 ) Wt 81.6 kg (180 lb) SpO2 96% Temp (24hrs), Av.2 ??F (38.4 ??C), Min:97.7 ??F (36.5 ??C), Max:102.6 ??F (39.2 ??C) PHYSICAL EXAM General: Alert, trach collar Chest wall: No tenderness or deformity Lungs: Clear to auscultation anteriorly Heart: RRR, S1, S2 normal, no murmur Abdomen: PEG tube in place, soft, non-distended, non-tender, +BS Extremities: Atraumatic, no cyanosis or edema, L-AKA stump site clean Skin: No rash LN: No cervical, supraclavicular, submandibular inguinal lymphadenopathy appreciated. Neurologic: Alert, follows some commands (difficult to do neuro exam) Labs: CBC: Recent Labs Component Name 06/10/23 0514 06/09/23 1314 02/28/23 0541 WBC 6.7 7.3 5.4 RBC 4.39 4.50 3.75* HGB 14.2 14.2 11.7* HCT 40.9 43.5 36.0 MCV 93.2 96.7 96.0 BMP: Recent Labs Component Name 06/09/23 1314 02/28/23 0541 02/27/23 0427 02/26/23 1619 02/25/23 0434 02/24/23 1032 02/23/23 0535 NA 141 138 138 - 138 - 137 CL 106 107 107 - 109* - 103 CO2 27 27 26 - 21* - 28 BUN 14 9 11 - 9 - 12 CREATININE 0.63* 0.41* 0.42* - 0.46* - 0.54* ALB 3.3* 2.5* - - 2.5* - 2.7* PROT 7.3 6.5 - - - - 7.6 - = values in this interval not displayed. estimated creatinine clearance is 125.5 mL/min (A) (by C-G formula based on SCr of 0.63 mg/dL (L)). LFTs: Recent Labs Component Name 06/09/23 1314 02/28/23 0541 02/23/23 0535 01/14/23 0424 01/13/23 0432 01/12/23 0350 01/11/23 0409 01/10/23 0348 01/09/23 0415 01/08/23 0350 01/07/23 0425 01/06/23 0411 01/05/23 0341 01/04/23 0317 01/03/23 0339 01/02/23 0339 01/01/23 0422 12/31/22 2056 11/25/22 0335 11/04/22 0633 10/09/22 1204 08/28/22 2224 08/28/22 1251 06/30/22 1039 06/27/22 2215 06/21/22 1926 06/15/22 0603 06/14/22 0524 06/13/22 0534 06/12/22 0337 06/11/22 2122 05/30/22 1538 05/14/22 0310 05/13/22 0724 05/12/22 0314 05/11/22 1309 03/17/22 1112 03/14/22 0458 03/11/22 1059 03/09/22 0411 03/08/22 1455 03/05/22 1441 12/30/21 0119 12/29/21 0721 12/27/21 0117 12/21/21 1245 05/01/21 2159 02/25/21 1212 08/13/20 1700 06/18/19 1426 01/24/19 0154 01/22/19 0425 01/14/19 0123 12/27/18 1239 11/27/18 2332 10/21/18 1231 08/07/18 1257 06/09/18 2355 04/30/18 1025 03/03/18 1745 01/30/18 1255 01/09/18 1451 11/28/17 0455 10/14/17 1349 10/13/17 1526 08/09/15 0349 04/11/15 0622 ALKPHOS 96 79 90 77 81 87 79 75 83 82 86 94 105 103 103 95 92 100 85 124 83 67 88 65 95 88 77 71 6562 70 62 77 78 73 102 73 73 71 74 84 89 62 73 74 71 66 51 64 76 80 65 59 65 65 53 58 74 55 62 75 8194 86 88 115 93 ALT 11 7 7 7 8 9 7 8 10 9 11 10 9 7 8 37 8 8 24 27 10 5 6 5 6 10 9 8 7 6 7 6 10 9 9 14 21 23 26 27 26 13 20 27 26 14 10 9 11 7 10 12 15 12 13 8 5 11 9 10 10 8 10 9 11 16 10 AST 19 13 17 13 11 13 12 11 14 15 14 14 14 11 12 13 12 12 24 25 15 13 14 13 19 19 13 14 15 11 14 1622 12 11 16 34 35* 60* 75* 74* 22 20 25 32 22 19 17 21 13 13 14 22 27 25 15 15 16 18 23 14 15 18 1823 16 14 LIPASE 12 - 17 - - - - - - - - - - - - - - - - - - - - - 18 - - - - - - - - - - - - - - - - - - - -- - - - - - - - - - - - - - - - - - - - - - Culture results reviewed. Imaging studies: Available imaging studies reviewed. ASSESSMENT AND RECOMMENDATIONS: 1. Possible aspiration PNA. CT and cultures reviewed. 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 - Gram stain and culture of tracheal secretion - UA and urine culture (from straight cath) - Blood cultures - Start ceftolozane/tazobactam 3g IV q8h after all cultures are collected. If Pseudomonas grows in sputum or urine culture, request susceptibility for ceftolozane/tazobactam and cefiderocol. Griselda Owens M.D., PhD. [employer] * Mely Layne RD/ONI - 06/10/2023 8:53 AM CSTAssociated Order(s): IP CONSULT TO NUTRITIONAL SERV; IP CONSULT TO NUTRITIONAL SERV Clinical Nutrition Assessment Brief Synopsis: Patient is at Nutrition Risk; Specific criteria can be found in assessment below Nutrition Plan: No diet ordered currently Tube Feeding Recommendations (via PEG tube): Osmolite 1.2 at 75 ml/hr. Provides 2160 kcals, 100 g Pro, 284 g carbohydrate, 1476 ml free water +50 ml q 6 hrs free water flush or per MD if on IVF +120 ml q 4 hrs free water flush or per MD if not on additional fluids TF considerations: 1. Start at 20ml/h and increase by 10ml/h q 4 h until goal 2. Do not hold unless residuals >500 as recommended by ASPEN. 3. For critical care, If residuals >200, monitor for symptoms of intolerance. 4. Signs of intolerance include: diarrhea, abdominal pain or distention. 5. Head of bed > 30?? Recommendations to Physician: Attach attending provider Establish nutrition source -- recommend ordering/starting TFs using recs above Comments: MINH consulted per vent protocol and tube feeding recs. Pt currently with trach and PEG tube in place. No documentation of intubation noted since admission. Pt non-verbal per chart; noting difficult communication with pt. Noted pt with hx of dementia as well. Labs reviewed -- lytes currently wnl; lactic acid also improved. No BM documented during admission. Recommend establishing nutrition source by ordering/starting TFs, using recs above. RD to follow per clinical nutrition guidelines. Assessment: Med/Surg History and Clinical Diagnoses: 63-year-old male with past medical history of epilepsy, chronic hypoxic respiratory failure status post trach, peg tube, hypertension, hyperlipidemia, previous stroke and vascular dementia who was brought to the hospital because of altered mental status Height: 177.8 cm (5' 10 ) Weight: 81.6 kg (180 lb) BMI: Body mass index is 25.83 kg/m??. BMI Range: Overweight IBW/lb (Calculated) Male: 166 , Recent Weights/Methods 01/14/2023 0700 01/14/2023 1900 01/14/2023 2000 01/14/2023 2100 01/14/2023 2200 02/23/2023 2144 02/25/2023 0900 06/09/2023 1127 Weight: -- -- -- -- -- 71.5 kg (157 lb 10.1 oz) 71.5 kg (157 lb 10.1 oz) 81.6 kg (180 lb) Weight Method : Bedscale Bedscale Bed[facility] Stated -- Estimated Wt Comments: reviewed -- current weight status questionable; recommend obtaining new scaled weight as able Diet order accuracy Current diet order: (None ordered) Nutrition recommendation: alter/change nutrition order P.O.Intake for the past 48 hrs: No data recorded Supplement(s) Consumed- Last 48 hours None Food Allergies: No known food allergies GI Concerns: None Chewing/Swallowing: (PEG tube dependent) Pain affecting intake: No Estimated Needs: KCAL: [id number] (25-30 kcal/kg ABW) Protein (g): 82-98g (1.0-1.2 g/kg ABW) Fluid (ml): 1 ml/kcal Needs based on: Kcal/kg- (Comment) (ABW of 81.6kg) Recommended Access Route: TF Laboratory values: Recent Labs Component Name 06/09/23 1314 02/28/23 0541 02/27/23 0427 02/26/23 1619 02/25/23 0434 02/24/23 1032 02/23/23 0535 01/14/23 0424 BUN 14 9 11 - 9 - 12 12 CREATININE 0.63* 0.41* 0.42* - 0.46* - 0.54* 0.37* NA 141 138 138 - 138 - 137 140 POTASSIUM 4.2 4.7* 4.6* - 4.1 - 4.4 3.8 CL 106 107 107 - 109* - 103 107 CO2 27 27 26 - 21* - 28 29 GLUCOSE 82 83 94 - 77 - 82 103 CALCIUM 9.3 9.2 8.8 - 9.5 - 10.1 9.4 PROT 7.3 6.5 - - - - 7.6 6.7 ALB 3.3* 2.5* - - 2.5* - 2.7* 2.6* TBILI 0.3 0.2 - - - - 0.2 0.2 ALKPHOS 96 79 - - - - 90 77 ALT 11 7 - - - - 7 7 AST 19 13 - - - - 17 13 ANIONGAP 8 4* 5* - 8 - 6 8 BCR 22 22 26* - 20 - 22 32* OSMOLALITY 292 284 285 - 283 - 283 290 AGRATIO 0.8* - - - - - 0.6* 0.6* EGFR >90 >90 >90 - >90 - >90 >90 - = values in this interval not displayed. Medications: Current Facility-Administered Medications Medication ??? 0.9% NaCl injection 3 mL And ??? 0.9% NaCl injection 1-10 mL ??? artificial tears ophthalmic ointment ??? aspirin chew tablet 81 mg ??? atorvastatin (Lipitor) tablet 40 mg ??? cefTRIAXone (Rocephin) 2,000 mg in 0.9% NaCl IV 50 mL IVPB ??? famotidine (Pepcid) tablet 20 mg ??? guaiFENesin (Robitussin) solution 15 mL ??? heparin injection 5,000 Units ??? iopamidol (Isovue 370) 76 % contrast ??? levETIRAcetam (Keppra) tablet 2,000 mg ??? metoprolol tartrate IR (Lopressor) tablet 25 mg ??? valproic acid (Depakene) solution 500 mg Current Outpatient Medications Medication ??? acetaminophen (Tylenol) 325 MG tablet ??? artificial tears ophthalmic ointment ??? aspirin (Aspirin) 81 MG chew tablet ??? atorvastatin (Lipitor) 40 MG tablet ??? Calcium Carbonate Antacid (calcium carbonate, 500 mg elemental Ca/5 mL,) 1250 MG/5ML suspension ??? cloBAZam (Onfi) 10 MG tablet ??? famotidine (Pepcid) 20 MG tablet ??? folic acid (Folvite) 1 MG tablet ??? guaiFENesin (Robitussin) 100 MG/5ML solution ??? levETIRAcetam (Keppra) 1000 MG tablet ??? metoprolol tartrate IR (Lopressor) 25 MG tablet ??? pantoprazole (Protonix) 40 MG packet ??? polyethylene glycol 3350 (Miralax) 17 g packet ??? senna (Senokot) 8.6 MG tablet ??? thiamine (Vitamin B-1) 100 MG tablet ??? valproic acid (Depakene) 250 MG/5ML solution Skin/Wound: trach Nutrition Care Process (1) Nutrition Diagnostic Statement: Inadequate protein-energy intake related to:: decreased ability to consume or tolerate adequate food and/or fluids due to illness as evidenced by:: oral intake less than .. (No TF ordered currently) Nutrition Diagnostic Statement Progress: New diagnostic statement established Nutrition Intervention: Enteral nutrition: Monitoring: TF, BM, labs, meds, weight Evaluation: Nutrition Goal: Total intake will meet estimated nutrient needs Nutrition Goal Timeframe: Throughout stay Nutrition Goal Progress: New goal established Mely Layne MS, RD/RDN, LD Ascom: [id number] [employer] documented in this encounter ED Notes * Loretta Spicer RN - 06/10/2023 8:06 PM CST Report given to Tina SIMON [employer] * Naa Kyle RN - 06/10/2023 7:20 AM CST Report given to ALFRED Noonan [employer] * Naa Kyle RN - 06/10/2023 6:00 AM CST Patient offloaded onto L side with rolled up blankets underneath R side of patient. Pt suctioned bypeggy RN per request and based on clinical need. [employer] * Caio Elder MD - 06/10/2023 2:50 AM CST Transition of care note- Verbal report from previous team is patient with a history of chronic respiratory failure status post tracheostomy, CVAs, dementia, aspiration pneumonia, peripheral artery disease, and hypertension. Was brought in for lethargy and altered mental status. Previous team states patient appears dehydrated. Workup thus far reveals CO2 retention on of venous blood gas, elevated lactic acid, chest x-ray,questionable pneumonia. Patient has been started on antibiotics as pending head CT and admission atpresent. Hospital course-patient follow-up labs showed increasing the increasing lactic acid. Repeat VBG wasunchanged however when a true ABG was performed patient's showed no acidosis or CO2 retention or hypoxia. Resident spoke with internal medicine and patient accepted for admission. Diagnosis acute altered mental status Disposition is admission [employer] * Naa Kyle RN - 06/10/2023 2:28 AM CST Pt resting. VSS. Call light in reach. Patient suctioned by this RN. Pt turn on R side with blanketsunderneath patient's backside. Patient's brief checked and it is not soiled. [employer] * Ryanne Hanson MD - 06/09/2023 6:33 PM CST ED Attending Note Patient seen as a team with EM resident Dr. Hooks who has also contributed to this note. History: Bi Tabor is a 63 year old male with a past medical history that includes chronic respiratory failure s/p tracheostomy, multiple CVAs/vascular dementia, epilepsy, hx MDRO aspiration PNA, PAD s/p LAKA, HTN, HLD BIBEMS from [place] for lethargy for the past 12 hours. Rest of history limited due to patient condition. Patient very faintly whispers or does not respond to questions. He is able to whisper his name, the year is 24, and he is in a hospital. He also states his left leg is in pain, unable to specify further. Pt has baseline 10 L supplemental oxygen per trach collar. Patient information was obtained primarily from the patient and EMS personnel History/Exam limitations: due to condition Interpretor services: no Past Medical History: Diagnosis Date ??? Cerebrovascular disease ??? HTN (hypertension) ??? Seizure (CMS-HCC) Past Surgical History: Procedure Laterality Date ??? ENDOSCOPY, UPPER N/A 03/25/2022 N/A; ESOPHAGOGASTRODUODENOSCOPY (EGD) DIAGNOSTIC with PEG Placement ??? ENT SURGERY N/A 07/15/2022 N/A; TRANSCERVICAL ZENKERS DIVERTICULECTOMY, OPEN TRACHEOSTOMY ??? 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 SINUS SURGERY N/A 11/26/2022 N/A; Bilateral Nasal Endoscopy, Right polypectomy, Right Maxillary Antrostomy, Rihjy Anterior Ethmoidectomy Social History Socioeconomic History ??? Marital status: [...] of Health Financial Resource Strain: Low Risk (11/28/2022) Overall Financial Resource Strain (CARDIA) ??? Difficulty of Paying Living Expenses: Not hard at all Food Insecurity: No Food Insecurity (11/28/2022) Hunger Vital Sign ??? Worried About Running Out of Food in the Last Year: Never true ??? Ran Out of Food in the Last Year: Never true Transportation Needs: No Transportation Needs (11/28/2022) PRAPARE - Transportation ??? Lack of Transportation (Medical): No ??? Lack of Transportation (Non-Medical): No Stress: No Stress Concern Present (11/28/2022) [employer] - Occupational Stress Questionnaire ??? Feeling of Stress : Not at all Housing Stability: Low Risk (11/28/2022) Housing Stability Vital Sign ??? Unable to Pay for Housing in the Last Year: No ??? Number of Places Lived in the Last Year: 1 ??? Unstable Housing in the Last Year: No Review of Systems: Review of Systems Unable to perform ROS: Acuity of condition Patient Vitals for the past 6 hrs: Pulse Resp BP 06/09/23 1818 101 16 (!) 151/139 06/09/23 1758 104 27 153/84 06/09/23 1740 101 20 152/78 06/09/23 1719 (!) 123 11 154/91 06/09/23 1701 101 -- 150/80 06/09/23 1654 (!) 111 14 130/89 06/09/23 1646 100 11 135/78 06/09/23 1631 99 14 160/79 06/09/23 1615 106 12 145/83 06/09/23 1600 107 17 157/85 06/09/23 1545 104 9 160/93 06/09/23 1540 106 -- 148/89 06/09/23 1530 (!) 121 -- 107/59 06/09/23 1515 (!) 115 16 163/93 06/09/23 1502 105 23 156/85 06/09/23 1447 (!) 111 18 164/88 06/09/23 1432 105 23 158/90 06/09/23 1417 104 21 157/88 06/09/23 1402 102 15 149/93 06/09/23 1347 98 15 138/75 06/09/23 1332 101 17 140/86 06/09/23 1317 97 19 145/86 06/09/23 1302 104 14 147/90 Exam: Physical Exam Vitals reviewed. Constitutional: General: He is not in acute distress. Appearance: He is well-developed. He is not toxic-appearing. Comments: Vitals stable HENT: Head: Normocephalic and atraumatic. Mouth/Throat: Mouth: Mucous membranes are dry. Eyes: Extraocular Movements: Extraocular movements intact. Pupils: Pupils are equal, round, and reactive to light. Cardiovascular: Rate and Rhythm: Regular rhythm. Tachycardia present. Pulses: Normal pulses. Heart sounds: Normal heart sounds. Pulmonary: Effort: No respiratory distress. Breath sounds: Rhonchi present. Abdominal: General: Bowel sounds are normal. There is no distension. Palpations: Abdomen is soft. Tenderness: There is no abdominal tenderness. Comments: PE tube in place Genitourinary: Comments: Jensen in place Musculoskeletal: General: No deformity. Cervical back: Neck supple. Comments: Left aka C/D/I, No RLE edema Skin: General: Skin is warm and dry. Neurological: Mental Status: He is alert and oriented to person, place, and time. Medical Decision Makin. 63 year old male with above history brought for evaluation of lethargy. DDX: Infection (2/2 UTI vs aspiration vs PNA vs soft tissue infection) vs CVA vs metabolic abnormality vs other Plan: CXR, UA, labs, CT head See below for further orders/plan Data Review: Amount and/or Complexity of Data Reviewed: Patient information was obtained primarily from the patient and EMS personnel Social determinants of health: Yes - Social Determinants of Health Tobacco Use: Medium Risk (06/09/2023) Patient History ??? Smoking Tobacco Use: Former ??? Smokeless Tobacco Use: Never ??? Passive Exposure: Not on file Alcohol Use: Not At Risk (02/23/2023) AUDIT-C ??? Frequency of Alcohol Consumption: Never ??? Average Number of Drinks: Patient does not drink ??? Frequency of Binge Drinking: Never Financial Resource Strain: Low Risk (11/28/2022) Overall Financial Resource Strain (CARDIA) ??? Difficulty of Paying Living Expenses: Not hard at all Food Insecurity: No Food Insecurity (11/28/2022) Hunger Vital Sign ??? Worried About Running Out of Food in the Last Year: Never true ??? Ran Out of Food in the Last Year: Never true Transportation Needs: No Transportation Needs (11/28/2022) PRAPARE - Transportation ??? Lack of Transportation (Medical): No ??? Lack of Transportation (Non-Medical): No Stress: No Stress Concern Present (11/28/2022) [employer] - Occupational Stress Questionnaire ??? Feeling of Stress : Not at all Depression: Not on file Housing Stability: Low Risk (11/28/2022) Housing Stability Vital Sign ??? Unable to Pay for Housing in the Last Year: No ??? Number of Places Lived in the Last Year: 1 ??? Unstable Housing in the Last Year: No Amount and/or Complexity of Data Reviewed: - medical complexity: medical complexity, Triage notes and available nursing notes reviewed , Clinical lab tests: ordered and reviewed, Tests in the radiology section of CPT??: ordered and independent interpretation and Independent visualization of images: yes - Monitoring: The patient's Suspender Cutter Rhythm was interpreted by me. The playground monitor showed NSR. This is interpreted as normal. The patient's Oxygen Saturation Monitor was interpreted by me. The reading was 93%. The patient wason Endotracheal collar at the time of the reading. This is interpreted as abnormal. All Labs/Imaging/ECG, other diagnostics independently interpreted by me. - ECG: Interpreted by me: Date: 06/09/2023 Time: 12:46 PM R&R: NSR with a ventricular rate of 90 bpm Additional findings: No significant ST wave changes, similar in comparison to prior from Dec 2022. - LABS: Labs Reviewed CBC W AUTO DIFFERENTIAL - Abnormal; Notable for the following components: Result Value Platelet Count 127 (*) Neutrophil % 74.9 (*) Lymphocyte % 11.7 (*) Lymphocyte Absolute 0.86 (*) All other components within normal limits COMPREHENSIVE METABOLIC PANEL - Abnormal; Notable for the following components: Creatinine 0.63 (*) Albumin 3.3 (*) Albumin/Globulin Ratio 0.8 (*) All other components within normal limits LACTIC ACID BLOOD REFLEX TO REPEAT - Abnormal; Notable for the following components: Lactic Acid-Stat 2.7 (*) All other components within normal limits URINALYSIS REFLEX MICROSCOPIC REFLEX CULTURE - Abnormal; Notable for the following components: Clarity UA Slt Cloudy (*) Protein UA 1+ (*) Ketone UA Trace (*) Leukocyte Esterase 2+ (*) Urobilinogen UA 2.0 (*) All other components within normal limits Narrative: LACTIC ACID BLOOD REFLEX TO REPEAT - Abnormal; Notable for the following components: Lactic Acid-Stat 3.5 (*) All other components within normal limits URINE MICROSCOPIC ONLY REFLEX TO CULTURE - Abnormal; Notable for the following components: WBC UA >100 (*) Bacteria UA Trace (*) Yeast Budding UA Few (*) Calcium Oxalate UA Rare (*) All other components within normal limits Narrative: BLOOD GASES AAN + COOX PANEL - Abnormal; Notable for the following components: pH Venous 7.28 (*) pO2 Venous 28 (*) pCO2 Venous 61 (*) O2 Saturation Venous 36 (*) All other components within normal limits Narrative: Carboxyhemoglobin Normal Concentration: Non-smokers: 0-2%; Smokers: 0-9%; Toxic: >20% LACTIC ACID BLOOD REFLEX TO REPEAT - Abnormal; Notable for the following components: Lactic Acid-Stat 3.3 (*) All other components within normal limits LIPASE BLOOD - Normal Narrative: Lipase results from the [place] [employer] Alinity analyzer may not be comparable with other methodologies. PT-INR [facility] - Normal TROPONIN-I HIGH SENSITIVE BASELINE + 1HR - Normal TSH REFLEX FREE T4 - Normal TROPONIN-I HIGH SENSITIVE REFLEX 1HOUR - Normal CULTURE URINE LACTIC ACID BLOOD REFLEX TO REPEAT BLOOD GASES ANA + COOX PANEL - IMAGING: XR CHEST 1VW PORTABLE Final Result PROCEDURE: XR CHEST 1VW PORTABLE DATE/TIME OF EXAM: 06/09/2023 11:49 AM CLINICAL INFORMATION: None relevant/not provided if blank. Indication: R53.1: Weakness Additional History: COMPARISON: AP portable semiupright chest dated 02/26/2023 at 1919 hours FINDINGS: AP portable semiupright view of the chest is performed and demonstrates the tracheostomy tube to superimpose the midline mid tracheal region. The lungs appear hypoventilated but otherwise without acute infiltrate or consolidation. Cardiac silhouette stable and believed to be within normal limits. Almita, mediastinum, and vascular lung markings without concerning abnormality. Haziness at the left lung base may be due to a small left pleural effusion with some adjacent atelectatic changes. IMPRESSION: Very mild left basilar haziness possibly due to small left pleural effusion with adjacent atelectatic changes. > Interpreting Provider: Hermes Lynn MD on 06/09/2023 12:[address] HEAD WO CONTRAST (Results Pending) CT CHEST ABDOMEN PELVIS W CONT (Results Pending) XR CHEST 1VW PORTABLE Result Date: 06/09/2023 IMPRESSION: Very mild left basilar haziness possibly due to small left pleural effusion with adjacent atelectatic changes. > Interpreting Provider: Hermes Lynn MD on 06/09/2023 12:00 PM - MEDS: Medications cefTRIAXone (Rocephin) 2,000 mg in 0.9% NaCl IV 50 mL IVPB (0 mg Intravenous Stopped 06/09/23 1649) lactated ringers IV bolus (0 mL Intravenous Stopped 06/09/23 1538) lactated ringers IV bolus (0 mL Intravenous Stopped 06/09/23 1803) ED COURSE: All Labs/Imaging/ECG, other diagnostics independently interpreted by me. 12:30 PM: CXR reviewed shows Very mild left basilar haziness possibly due to small left pleural effusion with adjacent atelectatic changes. 4:00 PM: Labs reviewed. Urine studies show evidence of UTI. Lactic acid elevated. Will start IV ABXand trend lactic at this time. 5:15 PM: Pt lactic acid down trending from 3.5 to 3.3. 6:00 PM: WILSON to Dr. Elder pending CT imaging and admission to medicine. Consult No Procedure done at this time No Ultrasound done at this time No Medications given in ED: Yes - see MAR Conclusion and Disposition: Acute problems: UTI, lactic acidosis Exacerbations of chronic problems: none Systemic issues: none Consultations in the ED: none Medication changes: per oncoming team Follow up: per oncoming team Orders Placed This Encounter ??? TUBE TRACH SIZE 4 CUFFLESS ??? CULTURE URINE ??? CT HEAD WO CONTRAST ??? XR CHEST 1VW PORTABLE ??? CT CHEST ABDOMEN PELVIS W CONT ??? CBC W AUTO DIFFERENTIAL ??? COMPREHENSIVE METABOLIC PANEL ??? LACTIC ACID BLOOD REFLEX TO REPEAT ??? LIPASE BLOOD ??? PT-INR [facility] ??? TROPONIN-I HIGH SENSITIVE BASELINE + 1HR ??? URINALYSIS REFLEX MICROSCOPIC REFLEX CULTURE ??? TSH REFLEX FREE T4 ??? TROPONIN-I HIGH SENSITIVE REFLEX 1HOUR ??? LACTIC ACID BLOOD REFLEX TO REPEAT ??? URINE MICROSCOPIC ONLY REFLEX TO CULTURE ??? BLOOD GASES ANA + COOX PANEL ??? LACTIC ACID BLOOD REFLEX TO REPEAT ??? LACTIC ACID BLOOD REFLEX TO REPEAT ??? BLOOD GASES ANA + COOX PANEL ??? IP CONSULT TO NUTRITIONAL SERV ??? MECHANICAL VENTILATION ??? PULSE OXIMETRY, CONTINUOUS ??? INITIATE SBT (VENTILATOR LIBERATION TRIAL) PROTOCOL ??? EKG 12-LEAD ??? lactated ringers IV bolus ??? cefTRIAXone (Rocephin) 2,000 mg in 0.9% NaCl IV 50 mL IVPB ??? lactated ringers IV bolus Medications cefTRIAXone (Rocephin) 2,000 mg in 0.9% NaCl IV 50 mL IVPB (0 mg Intravenous Stopped 06/09/23 1649) lactated ringers IV bolus (0 mL Intravenous Stopped 06/09/23 1538) lactated ringers IV bolus (0 mL Intravenous Stopped 06/09/23 1803) Clinical Impression: 1. Weakness 2. Urinary tract infection without hematuria, site unspecified 3. Elevated lactic acid level 4. Pleural effusion Disposition: WILSON By signing my name below, I, Cornelius Pagan, attest that this documentation has been prepared underthe direction and in the presence of Dr. Hanson. Signed: Laisha Matthews. I, Dr. Hanson, personally performed the services described in this documentation. All medical record entries made by the scribe were at my direction and in my presence. I have reviewed the chart and agree that the record reflects my personal performance and is accurate and complete. [employer] * Shane Morfin MD - 06/09/2023 11:45 AM CST [facility] EM[facility]GENC[facility]PART[facility] RESIDENT ENCOUNTER HISTORICAL INFORMATION Primary Care Doctor: Joyce Luevano, CHIEF CLERK-FRUIT BAR MAKER Patient information was obtained primarily from the patient and chart History/Exam limitations: mental status and communication barrier trach and minimal vocalization Interpretor services: none CHIEF COMPLAINT Lethargy (Pt arrives via EMS from [facility] for c/o lethargy for the past 12 hours. Pt has hx respiratory failure and has a chronic tracheostomy with his baseline being at 10L of O2 per trach collar. EMS states the patient is nonverbal at baseline but upon arrival he whispered his name. VSS) HPI Mr. Tabor is a 63 year old male with PMH chronic respiratory failure s/p tracheostomy, multiple CVAs/vascular dementia, epilepsy, hx MDRO aspiration PNA, PAD s/p L AKA, HTN, HLD BIBEMS for lethargy for the past 12 hours. Rest of history limited due to patient condition. Patient very faintly whispers or does not respond to questions. He is able to whisper his name, the year is 24, and he is in ahospital. He also states his left leg is in pain. On my evaluation, vitals unremarkable other than mild tachycardia to 101. He is otherwise in no acute distress. PAST MEDICAL HISTORY Past Medical History: Diagnosis Date ??? Cerebrovascular disease ??? HTN (hypertension) ??? Seizure (CMS-HCC) SURGICAL HISTORY Past Surgical History: Procedure Laterality [...] Anterior Ethmoidectomy CURRENT MEDICATIONS Current Outpatient Medications: ??? acetaminophen (Tylenol) 325 MG tablet, 2 (two) tablets by Enteral Tube route every 6 hours as needed Maximum allowable Acetaminophen amount = 4 Grams (4000 mg) / 24 hours., Disp: , Rfl: ??? artificial tears ophthalmic ointment, Instill into both eyes every 8 hours, Disp: , Rfl: ??? aspirin (Aspirin) 81 MG chew tablet, 1 (one) tablet by Enteral Tube route once daily, Disp: , Rfl: ??? atorvastatin (Lipitor) 40 MG tablet, 1 (one) tablet by Enteral Tube route at bedtime, Disp: 30 tablet, Rfl: 0 ??? Calcium Carbonate Antacid (calcium carbonate, 500 mg elemental Ca/5 mL,) 1250 MG/5ML suspension, 5 mL by Enteral Tube route every 6 hours as needed, Disp: , Rfl: ??? cloBAZam (Onfi) 10 MG tablet, 1 (one) tablet by Enteral Tube route every morning AND 1.5 (one and one-half) tablets every evening., Disp: 225 tablet, Rfl: 3 ??? famotidine (Pepcid) 20 MG tablet, 1 (one) tablet by Enteral Tube route 2 times daily, Disp: 60 tablet, Rfl: 0 ??? folic acid (Folvite) 1 MG tablet, 1 (one) tablet by Enteral Tube route once daily, Disp: , Rfl: ??? guaiFENesin (Robitussin) 100 MG/5ML solution, 15 mL by Enteral Tube route Every 6 Hours (03,09,15,21), Disp: 200 mL, Rfl: 0 ??? levETIRAcetam (Keppra) 1000 MG tablet, 2 (two) tablets by Enteral Tube route 2 times daily, Disp: 120 tablet, Rfl: 0 ??? metoprolol tartrate IR (Lopressor) 25 MG tablet, 1 (one) tablet by Enteral Tube route 2 times daily, Disp: , Rfl: ??? pantoprazole (Protonix) 40 MG packet, Take 1 (one) packet by mouth once daily, Disp: , Rfl: 0 ??? polyethylene glycol 3350 (Miralax) 17 g packet, 17 (seventeen) g by Enteral Tube route 2 times daily, Disp: 15 packet, Rfl: 0 ??? senna (Senokot) 8.6 MG tablet, 1 (one) tablet by Enteral Tube route once daily, Disp: 30 tablet, Rfl: 0 ??? thiamine (Vitamin B-1) 100 MG tablet, 1 (one) tablet by Enteral Tube route once daily, Disp: , Rfl: ??? valproic acid (Depakene) 250 MG/5ML solution, 10 mL by Per G Tube route 4 times daily, Disp: 200 mL, Rfl: 0 ALLERGIES Allergies Allergen Reactions ??? Clonazepam Psychiatric hallucinations FAMILY HISTORY No family history on file. SOCIAL HISTORY Social History Socioeconomic History ??? Marital status: Single Tobacco Use ??? Smoking status: Former Packs/day: 1.00 Years: 15.00 Additional pack years: 0.00 Total pack years: 15.00 Types: Cigarettes ??? Smokeless tobacco: Never Vaping Use ??? Vaping Use: Never used Substance and Sexual Activity ??? Alcohol use: No Comment: last drink 2015 ??? Drug use: No Comment: occasional ??? Sexual activity: Not Currently PHYSICAL EXAM BP 138/88 Pulse 98 Temp 97.8 ??F (36.6 ??C) (Temporal) Resp 20 Ht 1.778 m (5' 10 ) Wt 81.6 kg (180 lb) SpO2 100% Physical Exam Vitals reviewed. Constitutional: General: He is not in acute distress. HENT: Head: Normocephalic and atraumatic. Mouth/Throat: Comments: Secretions in mouth. Dry, cracked lips. Eyes: Extraocular Movements: Extraocular movements intact. Cardiovascular: Rate and Rhythm: Tachycardia present. Pulses: Normal pulses. Heart sounds: Normal heart sounds. No murmur heard. No friction rub. No gallop. Pulmonary: Effort: Pulmonary effort is normal. No respiratory distress. Breath sounds: Rhonchi present. No wheezing. Abdominal: General: Abdomen is flat. Bowel sounds are normal. There is no distension. Palpations: Abdomen is soft. Tenderness: There is no abdominal tenderness. There is no guarding. Genitourinary: Comments: Jensen in place Musculoskeletal: Comments: L AKA. Stump is c/d/i Skin: General: Skin is warm. Neurological: General: No focal deficit present. Mental Status: He is alert and oriented to person, place, and time. PULSE OXIMETRY INTERPRETATION Saturation: 95% Oxygen Delivery: Humidified trach collar Interpretation: no hypoxia at this time EKG Interpretation Interpreted by me: Date: 06/09/2023 Time: 1 R&R: normal sinus rhythm with a ventricular rate of 98 bpm Additional findings: none Ddx/problem: DDx includes infectious (aspiration PNA, UTI, bacteremia) vs metabolic derangements vs CVA vs other Plan: -CT head and CXR -Await labs PROCEDURES: none ED COURSE & MEDICAL DECISION MAKING Pertinent Labs & Imaging studies reviewed. (See chart for details) Labs Reviewed CBC W AUTO DIFFERENTIAL COMPREHENSIVE METABOLIC PANEL LACTIC ACID BLOOD REFLEX TO REPEAT LIPASE BLOOD PT-INR [facility] TROPONIN-I HIGH SENSITIVE BASELINE + 1HR URINALYSIS REFLEX MICROSCOPIC REFLEX CULTURE TSH REFLEX FREE T4 CT HEAD WO CONTRAST (Results Pending) XR CHEST 1VW PORTABLE (Results Pending) CONSULTS: No PROGRESS NOTES ED Course as of 06/09/23 1227 Marian Jun 09, 2023 1205 EKG showing normal sinus rhythm with no ST-T wave changes. CXR w/ no focal consolidation [MP] ED Course User Index [MP] Shane Morfin MD Clinical Impressions as of 06/09/23 1227 Weakness Medications given in ED: No Medications prescribed: No Revised home medications: No Social determinants of health: No Limiting social determinants of health: None. FINAL IMPRESSION 1. Weakness DISPOSITION: -Pending further lab and imaging workup Electronically signed: Dr. Morfin Date: 06/09/23 Time: 11:45 AM [employer] * Blair Vaughn RN - 06/09/2023 11:27 AM CST Pt arrives via EMS from [facility] for c/o lethargy for the past 12 hours. Pt has hx respiratory failure and has a chronic tracheostomy with his baseline being at 10L of O2 per trach collar. EMS states the patient is nonverbal at baseline but upon arrival he whispered his name. VSS [employer] documented in this encounter Miscellaneous Notes * Coding Query - Leatha Vinson MD - 06/28/2023 2:22 PM CST DOCUMENTATION CLARIFICATION REQUEST TO: Dr. Vinson FROM: Marichuy OLIVA, RN, CDS Email: [email or web address] Patient Name: Bi Tabor Due to the documentation of Severe protein-calorie malnutrition by both Dr. Nogueira and Dr. Briones, please review the clinical information below and clarify if you: ? Concur with the diagnosis of severe protein-calorie malnutrition (please provide supporting clinical indicators). ? Do not concur with the diagnosis of severe protein-calorie malnutrition. ? Other, please specify ? Unable to determine The medical record reflects the following: o Risk Factors: Dementia, trach and PEG status o Clinical Findings: - 06/10 Nutrition Consult: Patient is at Nutrition risk. - 06/17 Nutrition Consult: Patient is at Nutrition risk. - 06/23 Nutrition Consult: Patient is at Nutrition risk. - BMI 25.83 - Malnutrition not documented in DC summary. o Treatment: TF, Nutrition consult PROVIDER RESPONSE (Use F2 to respond) Unable to determine THIS DOCUMENT IS MAINTAINED A PERMANENT PART OF THE MEDICAL RECORD. [employer] * Code/Rapid Response Event - Elmo Vitale RN - 06/16/2023 6:10 AM [employer]NAG[employer] RAPID RESPONSE EVENT NOTE [facility] [address] [place] [address] Patient: Bi Tabor Location: : 1960 Reason for Admission: No admission diagnoses are documented for this encounter. Provider Teams Team Comment Primary Team Specialty Team Pager 1st Contact 1st Contact Number [facility] Red Team Yes Internal Medicine -- Event Date/Time: 06/16/2023 0153 Summary of Events: The Rapid Response Team (HR OPERATIONS ADVISOR) was paged for tracheostomy decannulation. Upon arrival pt is sitting up in bed, tracheostomy tube hanging from trach collar. RT at bedside. Pt maintaining saturations in the high 90's. Emergency bag accessed and a 5 Bivona cuffed was placed to secureairway by RT. Medium to large amount of secretions suctioned after trach was secured. Pt vitals remained stable throughout event. Vital Signs: Patient Vitals for the past 24 hrs: Temp Pulse Resp BP SpO2 O2 % (FiO2) 06/16/23 0352 98.2 ??F (36.8 ??C) 74 18 142/74 98 % -- 06/16/23 0218 -- 83 -- -- 96 % 28 % 06/15/23 2334 98.1 ??F (36.7 ??C) 73 18 131/74 97 % -- 06/15/23 2150 -- -- -- -- -- 28 % 06/15/231950 98.2 ??F (36.8 ??C) 67 -- 152/73 95 % -- 06/15/23 0801 98.1 ??F (36.7 ??C) 79 16 132/84 99 % -- Outcome: Pt remains in current room at current level of care. Elmo Vitale, RN Rapid Response Nurse [employer] * Coding Query - Gaurav Nogueira MD - 06/11/2023 10:49 AM CST DOCUMENTATION CLARIFICATION REQUEST TO: Dr. Nogueira FROM: Marichuy OLIVA RN, CDS Email: [email or web address] Patient Name: Bi Tabor Please review the clinical information below and clarify the relationship between the urinary infection and the urinary catheter. ??? Urinary infection was due to urinary catheter and it was present on admission ??? Urinary infection was due to urinary catheter and it was not present on admission ??? Urinary infection was not due to urinary catheter and it was present on admission ??? Urinary infection was not due to urinary catheter and it was not present on admission ??? Unable to determine ??? Other, please specify The medical record reflects the following: o Risk Factors: Jensen in place on arrival to ED, UTI, dementia o Clinical Findings: - Preliminary urine culture result shows growing yeast, gram negative bacilli. - 06/09 ED: Jensen in place. - 06/09 IM H&P: In the ED he found to have UTI and was started on ceftriaxone. o Treatment: Urine culture, IV ceftriaxone PROVIDER RESPONSE (Use F2 to respond) Patient's sepsis now believed to be due to pneumonia. Does have indwelling jensen catheter that was present on admission with urinary leukocytes, ketones and leukocyte esterase but culture with only 1-20K Pseudomonas and yeast - likely chronic colonization. THIS DOCUMENT IS MAINTAINED A PERMANENT PART OF THE MEDICAL RECORD. [employer] documented in this encounter Plan of Treatment Upcoming Encounters Date Type Department Care Team (Late st Contact Info) Description 12/05/2024 1:00 PM CDT Office Visit [facility] - Neurology [address] [place] [phone] Sean Raymundo, DO [address] [place] [address] Scheduled Orders Name Type Priority Associated Diagnoses Order Schedule OXYGEN WITH TITRATION PROTOCOL (ADULT) Respiratory Care Routine ONCE for 1 Occurrences starting 06/10/2023 until 06/10/2023 EEG VIDEO MONITORING Neurology Routine ONCE for 1 Occurrences starting 06/20/2023 until 06/20/2023 documented as of this encounter Procedures Procedure Name Priority Date/Time Associated Diagnosis Comments CBC W AUTO DIFFERENTIAL Routine 06/28/2023 1:43 AM [employer] COMPREHENSIVE METABOLIC PANEL Routine 06/28/2023 1:43 AM [employer] PHOSPHORUS BLOOD Routine 06/28/2023 1:43 AM [employer] MAGNESIUM BLOOD Routine 06/28/2023 1:43 AM [employer] CBC W AUTO DIFFERENTIAL Routine 06/27/2023 1:56 AM [employer] COMPREHENSIVE METABOLIC PANEL Routine 06/27/2023 1:56 AM [employer] PHOSPHORUS BLOOD Routine 06/27/2023 1:56 AM [employer] MAGNESIUM BLOOD Routine 06/27/2023 1:56 AM [employer] CBC W AUTO DIFFERENTIAL Routine 06/26/2023 3:19 AM [employer] COMPREHENSIVE METABOLIC PANEL Routine 06/26/2023 3:19 AM [employer] PHOSPHORUS BLOOD Routine 06/26/2023 3:19 AM [employer] MAGNESIUM BLOOD Routine 06/26/2023 3:19 AM [employer] VALPROIC ACID LEVEL Routine 06/25/2023 2 :33 PM [employer] XR CHEST 1VW PORTABLE Routine 06/25/2023 7:49 AM [employer] Aspiration pneumonitis (HCC) CBC W AUTO DIFFERENTIAL Routine 06/25/2023 6:56 AM [employer] COMPREHENSIVE METABOLIC PANEL Routine 06/25/2023 6:56 AM [employer] PHOSPHORUS BLOOD Routine 06/25/2023 6:56 AM [employer] MAGNESIUM BLOOD Routine 06/25/2023 6:56 AM [employer] VALPROIC ACID LEVEL STAT 06/25/2023 6 :56 AM [employer] DIFFERENTIAL MANUAL Routine 06/24/2023 1 1:46 AM [employer] CBC W AUTO DIFFERENTIAL Routine 06/24/2023 11:46 AM [employer] COMPREHENSIVE METABOLIC PANEL Routine 06/24/2023 7:16 AM [employer] PHOSPHORUS BLOOD Routine 06/24/2023 7:16 AM [employer] MAGNESIUM BLOOD Routine 06/24/2023 7:16 AM [employer] VALPROIC ACID LEVEL Routine 06/23/2023 1 1:06 AM [employer] CBC W AUTO DIFFERENTIAL Routine 06/23/2023 7:19 AM [employer] COMPREHENSIVE METABOLIC PANEL Routine 06/23/2023 7:19 AM [employer] PHOSPHORUS BLOOD Routine 06/23/2023 7:19 AM [employer] MAGNESIUM BLOOD Routine 06/23/2023 7:19 AM [employer] BASIC METABOLIC PANEL (CALCIUM TOTAL) Routine 06/22/2023 11:46 AM [employer] CBC W AUTO DIFFERENTIAL Routine 06/22/2023 6:08 AM [employer] COMPREHENSIVE METABOLIC PANEL Routine 06/22/2023 6:08 AM [employer] PHOSPHORUS BLOOD Routine 06/22/2023 6:08 AM [employer] MAGNESIUM BLOOD Routine 06/22/2023 6:08 AM [employer] CLOBAZAM QUANT BLOOD AM Draw 06/21/2023 5:57 AM [employer] LEVETIRACETAM LEVEL AM Draw 06/21/2023 5 :57 AM [employer] CBC W AUTO DIFFERENTIAL Routine 06/21/2023 5:57 AM [employer] COMPREHENSIVE METABOLIC PANEL Routine 06/21/2023 5:57 AM [employer] PHOSPHORUS BLOOD Routine 06/21/2023 5:57 AM [employer] MAGNESIUM BLOOD Routine 06/21/2023 5:57 AM [employer] VALPROIC ACID LEVEL Routine 06/21/2023 5 :57 AM [employer] CT HEAD WO CONTRAST Routine 06/20/2023 1 :04 PM [employer] Seizures (CMS/HCC) CBC W AUTO DIFFERENTIAL Routine 06/20/2023 5:46 AM [employer] COMPREHENSIVE METABOLIC PANEL Routine 06/20/2023 5:46 AM [employer] PHOSPHORUS BLOOD Routine 06/20/2023 5:46 AM [employer] MAGNESIUM BLOOD Routine 06/20/2023 5:46 AM [employer] CBC W AUTO DIFFERENTIAL Routine 06/19/2023 11:57 AM [employer] COMPREHENSIVE METABOLIC PANEL Routine 06/19/2023 11:57 AM [employer] PHOSPHORUS BLOOD Routine 06/19/2023 11:5 7 AM [employer] MAGNESIUM BLOOD Routine 06/19/2023 11:57 AM [employer] CBC W AUTO DIFFERENTIAL Routine 06/18/2023 9:08 AM [employer] COMPREHENSIVE METABOLIC PANEL Routine 06/18/2023 9:08 AM [employer] PHOSPHORUS BLOOD Routine 06/18/2023 9:08 AM [employer] MAGNESIUM BLOOD Routine 06/18/2023 9:08 AM [employer] CBC W AUTO DIFFERENTIAL Routine 06/17/2023 6:54 AM [employer] COMPREHENSIVE METABOLIC PANEL Routine 06/17/2023 6:54 AM [employer] PHOSPHORUS BLOOD Routine 06/17/2023 6:54 AM [employer] MAGNESIUM BLOOD Routine 06/17/2023 6:54 AM [employer] CBC W AUTO DIFFERENTIAL Routine 06/16/2023 2:51 AM [employer] COMPREHENSIVE METABOLIC PANEL Routine 06/16/2023 2:51 AM [employer] PHOSPHORUS BLOOD Routine 06/16/2023 2:51 AM [employer] MAGNESIUM BLOOD Routine 06/16/2023 2:51 AM [employer] VANCOMYCIN LEVEL TROUGH Timed 06/16/2023 2:51 AM [employer] COMPREHENSIVE METABOLIC PANEL Routine 06/15/2023 6:33 AM [employer] PHOSPHORUS BLOOD Routine 06/15/2023 6:33 AM [employer] MAGNESIUM BLOOD Routine 06/15/2023 6:33 AM [employer] DIFFERENTIAL MANUAL Routine 06/15/2023 6 :32 AM [employer] CBC W AUTO DIFFERENTIAL Routine 06/15/2023 6:32 AM [employer] VANCOMYCIN LEVEL PEAK Timed 06/15/2023 6:32 AM [employer] CBC W AUTO DIFFERENTIAL Routine 06/14/2023 7:45 AM [employer] COMPREHENSIVE METABOLIC PANEL Routine 06/14/2023 7:45 AM [employer] PHOSPHORUS BLOOD Routine 06/14/2023 7:45 AM [employer] MAGNESIUM BLOOD Routine 06/14/2023 7:45 AM [employer] CARDIAC EKG ORDER 06/13/2023 11: 50 AM [employer] CULTURE BLOOD Timed 06/13/2023 8:47 AM [employer] CULTURE BLOOD Timed 06/13/2023 8:46 AM [employer] VANCOMYCIN LEVEL PEAK Timed 06/13/2023 8:45 AM [employer] COMPREHENSIVE METABOLIC PANEL Routine 06/13/2023 5:54 AM [employer] PHOSPHORUS BLOOD Routine 06/13/2023 5:54 AM [employer] MAGNESIUM BLOOD Routine 06/13/2023 5:54 AM [employer] CBC W AUTO DIFFERENTIAL Routine 06/13/2023 5:53 AM [employer] CBC W AUTO DIFFERENTIAL Routine 06/12/2023 5:14 PM [employer] COMPREHENSIVE METABOLIC PANEL Routine 06/12/2023 5:14 PM [employer] PHOSPHORUS BLOOD Routine 06/12/2023 5:14 PM [employer] MAGNESIUM BLOOD Routine 06/12/2023 5:14 PM [employer] CULTURE BLOOD STAT 06/11/2023 5:54 PM [employer] BCID PANEL Routine 06/11/2023 5:46 PM [employer] CULTURE BLOOD STAT 06/11/2023 5:46 PM [employer] CULTURE BLOOD Timed 06/11/2023 3:52 PM [employer] MRSA DNA PCR STAT 06/11/2023 2:42 PM [employer] CULTURE URINE STAT 06/11/2023 2:42 PM [employer] URINALYSIS REFLEX TO MICROSCOPIC NO CULTURE STAT 06/11/2023 2:22 PM [employer] SUSCEPTIBILITY NOT OTHERWISE SPECIFIED Routine 06/11/2023 2:19 PM [employer] CULTURE SPUTUM+GRAM STAIN Routine 06/11/2023 2:19 PM [employer] CBC W/O DIFFERENTIAL STAT 06/10/2023 5:14 AM [employer] LACTIC ACID BLOOD REFLEX TO REPEAT Timed STAT 06/09/2023 10:53 [address] [employer] [address] CHEST ABDOMEN PELVIS W CONT STAT 06/09/2023 10:45 PM [employer] Elevated lactic acid level Pleural effusion CT HEAD WO CONTRAST STAT 06/09/2023 1 0:45 PM [employer] Weakness LACTIC ACID BLOOD REFLEX TO REPEAT Timed STAT 06/09/2023 8:17 PM [employer] LACTIC ACID REPEAT REFLEX Timed STAT 06/09/2023 8:17 PM [employer] SARS-COV-2 (COVID-19)+INFLU A+B PCR RAPID STAT 06/09/2023 8:15 PM [employer] BLOOD GASES ART + COOX PANEL STAT 06/09/2023 8:14 PM [employer] LACTIC ACID BLOOD REFLEX TO REPEAT Timed STAT 06/09/2023 7:02 PM [employer] BLOOD GASES ANA + COOX PANEL STAT 06/09/2023 7:02 PM [employer] LACTIC ACID BLOOD REFLEX TO REPEAT STAT 06/09/2023 5:03 PM [employer] LACTIC ACID REPEAT REFLEX STAT 06/09/2023 5:03 PM [employer] BLOOD GASES ANA + COOX PANEL STAT 06/09/2023 5:03 PM [employer] LACTIC ACID BLOOD REFLEX TO REPEAT Timed STAT 06/09/2023 3:46 PM [employer] LACTIC ACID REPEAT REFLEX Timed STAT 06/09/2023 3:46 PM [employer] URINE MICROSCOPIC ONLY REFLEX TO CULTURE STAT 06/09/2023 3:45 PM [employer] URINALYSIS REFLEX MICROSCOPIC REFLEX CULTURE STAT 06/09/2023 3:45 PM [employer] CULTURE URINE STAT 06/09/2023 3:45 PM [employer] TROPONIN-I HIGH SENSITIVE REFLEX 1HOUR Timed 06/09/2023 2:37 PM [employer] PT-INR [facility] STAT 06/09/2023 1:14 PM [employer] LACTIC ACID BLOOD REFLEX TO REPEAT STAT 06/09/2023 1:14 PM [employer] LACTIC ACID REPEAT REFLEX STAT 06/09/2023 1:14 PM [employer] TROPONIN-I HIGH SENSITIVE BASELINE + 1HR STAT 06/09/2023 1:14 PM [employer] TSH REFLEX FREE T4 STAT 06/09/2023 1: 14 PM [employer] CBC W AUTO DIFFERENTIAL STAT 06/09/2023 1:14 PM [employer] COMPREHENSIVE METABOLIC PANEL STAT 06/09/2023 1:14 PM [employer] LIPASE BLOOD STAT 06/09/2023 1:14 PM [employer] XR CHEST 1VW PORTABLE STAT 06/09/2023 12:03 PM [employer] Weakness EKG 12-LEAD Routine 06/09/2023 11:50 AM [employer] Weakness documented in this encounter Results * PHOSPHORUS BLOOD (06/28/2023 1:43 AM [employer]) Phosphorus 2.8 2.8 - 5.1 mg/dL 06/28/2023 3:05 AM [facility] Blood BLOOD SPECIMEN / Unknown Lab Venipuncture / Unknown 06/28/2023 1:43 AM [employer] 06/28/2023 2:35 AM [employer] Gaurav Nogueira MD LAB - CHEMISTRY ORDERABLES Performing Organization Address City/[facility]/ZIP Co de Phone Number [address] [phone], [facility] [phone] * MAGNESIUM BLOOD (06/28/2023 1:43 AM [employer]) Magnesium 1.9 1.6 - 2.6 mg/dL 06/28/2023 3:05 AM [facility] Blood BLOOD SPECIMEN / Unknown Lab Venipuncture / Unknown 06/28/2023 1:43 AM [employer] 06/28/2023 2:35 AM [employer] Gaurav Nogueira MD LAB - CHEMISTRY ORDERABLES Performing Organization Address City/[facility]/ZIP Co de Phone Number [address] [phone], [facility] [phone] * (ABNORMAL) COMPREHENSIVE METABOLIC PANEL (06/28/2023 1:43 AM [employer]) BUN 17 7 - 26 mg/dL 06/28/2023 3:05 AM [facility] Creatinine 0.50(L) 0.71 - 1.16 mg/dL 06/28/2023 3:05 AM [facility] Sodium 136 136 - 145 mmol/L 06/28/2023 3:05 AM [facility] Potassium 4.7(H) 3.5 - 4.5 mmol/L 06/28/2023 3:05 AM [facility] Chloride 104 98 - 107 mmol/L 06/28/2023 3:05 AM [facility] CO2 26 22 - 29 mmol/L 06/28/2023 3:05 AM [facility] Glucose 102 70 - 115 mg/dL 06/28/2023 3:05 AM [facility] Calcium 9.2 8.4 - 10.2 mg/dL 06/28/2023 3:05 AM [facility] Protein Total 7.2 6.0 - 8.3 g/dL 06/28/2023 3:05 AM [facility] Albumin 2.8(L) 3.4 - 5.0 g/dL 06/28/2023 3:05 AM [facility] Bilirubin Total 0.3 0.2 - 1.2 mg/dL 06/28/2023 3:05 AM [facility] Alkaline Phosphatase 108 40 - 150 U/L 06/28/2023 3:05 AM [facility] ALT 26 5 - 55 U/L 06/28/2023 3:05 AM [facility] AST 27 5 - 34 U/L 06/28/2023 3:05 AM [facility] Anion Gap 6 6 - 16 06/28/2023 3:05 AM [facility] BUN/Creatinine Ratio 34(H) 7 - 23 06/28/2023 3:05 AM [facility] Osmolality Calculated 284 275 - 295 mOsm/kg 06/28/2023 3:05 AM [facility] Albumin/Globulin Ratio 0.6(L) 1.1 - 2.3 06/28/2023 3:05 AM [facility] eGFR by CKD-EPI >90 >=90 mL/min/1.7 3 m2 06/28/2023 3:05 AM [facility] Blood BLOOD SPECIMEN / Unknown Lab Venipuncture / Unknown 06/28/2023 1:43 AM [employer] 06/28/2023 2:35 AM [facility] Gaurav Nogueira MD LAB - CHEMISTRY ORDERABLES [facility] [address] [place] [address], [facility] [phone] * (ABNORMAL) CBC W AUTO DIFFERENTIAL (06/28/2023 1:43 AM [facility]) WBC 7.7 4.0 - 10.7 x10E9/L 06/28/2023 2:56 AM [facility] RBC Count 3.89(L) 4.30 - 5.80 x10E12/L 06/28/2023 2:56 AM [facility] Hemoglobin 12.5(L) 13.3 - 17.5 g/dL 06/28/2023 2:56 AM [facility] Hematocrit 37.6(L) 38.7 - 51.1 % 06/28/2023 2:56 AM [facility] MCV 96.7 80.0 - 98.0 fL 06/28/2023 2:56 AM [facility] MCH 32.1 26.7 - 33.6 pg 06/28/2023 2:56 AM [facility] MCHC 33.2 31.7 - 36.3 g/dL 06/28/2023 2:56 AM [facility] RDW-CV 15.6(H) 11.3 - 14.8 % 06/28/2023 2:56 AM [facility] Platelet Count 246 150 - 420 x10E9/L 06/28/2023 2:56 AM [facility] MPV 13.1(H) 7.8 - 11.4 fL 06/28/2023 2:56 AM [facility] Neutrophil % 43.9 41.0 - 74.0 % 06/28/2023 2:56 AM [facility] Lymphocyte % 42.9 17.0 - 47.0 % 06/28/2023 2:56 AM [facility] Monocyte % 8.1 3.0 - 11.0 % 06/28/2023 2:56 AM [facility] Eosinophil % 4.4 0.0 - 7.0 % 06/28/2023 2:56 AM [facility] Basophil % 0.3 0.0 - 1.6 % 06/28/2023 2:56 AM [facility] Immature Granulocytes % 0.4 0.0 - 1.0 % 06/28/2023 2:56 AM [facility] Neutrophil Absolute 3.37 1.60 - 7.50 x10E9/L 06/28/2023 2:56 AM [facility] Lymphocyte Absolute 3.29 1.00 - 4.40 x10E9/L 06/28/2023 2:56 AM [facility] Monocyte Absolute 0.62 0.15 - 1.00 x10E9/L 06/28/2023 2:56 AM [facility] Eosinophil Absolute 0.34 0.00 - 0.60 x10E9/L 06/28/2023 2:56 AM [facility] Basophil Absolute 0.02 0.00 - 0.13 x10E9/L 06/28/2023 2:56 AM [facility] Blood BLOOD SPECIMEN / Unknown Lab Venipuncture / Unknown 06/28/2023 1:43 AM [employer] 06/28/2023 2:35 AM [employer] Gaurav Nogueira MD LAB - HEMATOLOGY ORDERABLES [address] [address], [facility] [phone] * PHOSPHORUS BLOOD (06/27/2023 1:56 AM [employer]) Phosphorus 3.5 2.8 - 5.1 mg/dL 06/27/2023 3:09 AM [facility] Blood BLOOD SPECIMEN / Unknown Lab Venipuncture / Unknown 06/27/2023 1:56 AM [employer] 06/27/2023 2:40 AM [employer] Gaurav Nogueira MD LAB - CHEMISTRY ORDERABLES [address] [address], [place] [phone] * MAGNESIUM BLOOD (06/27/2023 1:56 AM [employer]) Magnesium 2.0 1.6 - 2.6 mg/dL 06/27/2023 3:09 AM [facility] Blood BLOOD SPECIMEN / Unknown Lab Venipuncture / Unknown 06/27/2023 1:56 AM [employer] 06/27/2023 2:40 AM [employer] Gaurav Modesta Mirlande OLSEN LAB - CHEMISTRY ORDERABLES [facility] [address] [place] [address], [facility] [phone] * (ABNORMAL) COMPREHENSIVE METABOLIC PANEL (06/27/2023 1:56 AM [facility]) BUN 23 7 - 26 mg/dL 06/27/2023 3:09 AM [facility] Creatinine 0.55(L) 0.71 - 1.16 mg/dL 06/27/2023 3:09 AM [facility] Sodium 137 136 - 145 mmol/L 06/27/2023 3:09 AM [facility] Potassium 4.5 3.5 - 4.5 mmol/L 06/27/2023 3:09 AM [facility] Chloride 105 98 - 107 mmol/L 06/27/2023 3:09 AM [facility] CO2 26 22 - 29 mmol/L 06/27/2023 3:09 AM [facility] Glucose 105 70 - 115 mg/dL 06/27/2023 3:09 AM [facility] Calcium 9.2 8.4 - 10.2 mg/dL 06/27/2023 3:09 AM [facility] Protein Total 7.1 6.0 - 8.3 g/dL 06/27/2023 3:09 AM [facility] Albumin 2.7(L) 3.4 - 5.0 g/dL 06/27/2023 3:09 AM [facility] Bilirubin Total 0.2 0.2 - 1.2 mg/dL 06/27/2023 3:09 AM [facility] Alkaline Phosphatase 103 40 - 150 U/L 06/27/2023 3:09 AM [facility] ALT 21 5 - 55 U/L 06/27/2023 3:09 AM [facility] AST 21 5 - 34 U/L 06/27/2023 3:09 AM [facility] Anion Gap 6 6 - 16 06/27/2023 3:09 AM [facility] BUN/Creatinine Ratio 42(H) 7 - 23 06/27/2023 3:09 AM [facility] Osmolality Calculated 288 275 - 295 mOsm/kg 06/27/2023 3:09 AM [facility] Albumin/Globulin Ratio 0.6(L) 1.1 - 2.3 06/27/2023 3:09 AM [facility] eGFR by CKD-EPI >90 >=90 mL/min/1.7 3 m2 06/27/2023 3:09 AM [facility] Blood BLOOD SPECIMEN / Unknown Lab Venipuncture / Unknown 06/27/2023 1:56 AM [employer] 06/27/2023 2:40 AM [facility] Gaurav Nogueira MD LAB - CHEMISTRY ORDERABLES Performing Organization Address City/State/[facility] Co de Phone Number [facility] [address] [place] [phone] [phone] * (ABNORMAL) CBC W AUTO DIFFERENTIAL (06/27/2023 1:56 AM [facility]) WBC 7.8 4.0 - 10.7 x10E9/L 06/27/2023 2:47 AM [facility] RBC Count 3.88(L) 4.30 - 5.80 x10E12/L 06/27/2023 2:47 AM [facility] Hemoglobin 12.5(L) 13.3 - 17.5 g/dL 06/27/2023 2:47 AM [facility] Hematocrit 38.5(L) 38.7 - 51.1 % 06/27/2023 2:47 AM [facility] MCV 99.2(H) 80.0 - 98.0 fL 06/27/2023 2:47 AM [facility] MCH 32.2 26.7 - 33.6 pg 06/27/2023 2:47 AM [facility] MCHC 32.5 31.7 - 36.3 g/dL 06/27/2023 2:47 AM [facility] RDW-CV 15.7(H) 11.3 - 14.8 % 06/27/2023 2:47 AM [facility] Platelet Count 230 150 - 420 x10E9/L 06/27/2023 2:47 AM [facility] MPV 13.0(H) 7.8 - 11.4 fL 06/27/2023 2:47 AM [facility] Neutrophil % 45.9 41.0 - 74.0 % 06/27/2023 2:47 AM [facility] Lymphocyte % 40.2 17.0 - 47.0 % 06/27/2023 2:47 AM [facility] Monocyte % 9.3 3.0 - 11.0 % 06/27/2023 2:47 AM [facility] Eosinophil % 3.9 0.0 - 7.0 % 06/27/2023 2:47 AM [facility] Basophil % 0.3 0.0 - 1.6 % 06/27/2023 2:47 AM [facility] Immature Granulocytes % 0.4 0.0 - 1.0 % 06/27/2023 2:47 AM [facility] Neutrophil Absolute 3.58 1.60 - 7.50 x10E9/L 06/27/2023 2:47 AM [facility] Lymphocyte Absolute 3.12 1.00 - 4.40 x10E9/L 06/27/2023 2:47 AM [facility] Monocyte Absolute 0.72 0.15 - 1.00 x10E9/L 06/27/2023 2:47 AM [facility] Eosinophil Absolute 0.30 0.00 - 0.60 x10E9/L 06/27/2023 2:47 AM [facility] Basophil Absolute 0.02 0.00 - 0.13 x10E9/L 06/27/2023 2:47 AM [facility] Blood BLOOD SPECIMEN / Unknown Lab Venipuncture / Unknown 06/27/2023 1:56 AM [employer] 06/27/2023 2:35 AM [facility] Gaurav Nogueira MD LAB - HEMATOLOGY ORDERABLES Performing Organization Address City/[facility]/ZIP Co de Phone Number [facility] [address] [place] [phone], [place] [phone] * (ABNORMAL) PHOSPHORUS BLOOD (06/26/2023 3:19 AM [employer]) Phosphorus 2.6(L) 2.8 - 5.1 mg/dL 06/26/2023 4:59 AM [employer] [facility] Blood BLOOD SPECIMEN / Unknown Lab Venipuncture / Unknown 06/26/2023 3:19 AM [employer] 06/26/2023 4:30 AM [employer] Gaurav Nogueira MD LAB - CHEMISTRY ORDERABLES Performing Organization Address City/[facility]/ZIP Co de Phone Number [address] [address], [place] [phone] * MAGNESIUM BLOOD (06/26/2023 3:19 AM [employer]) Pathologist [facility] [place] Magnesium 2.0 1.6 - 2.6 mg/dL 06/26/2023 4:59 AM [employer] [facility] Blood BLOOD SPECIMEN / Unknown Lab Venipuncture / Unknown 06/26/2023 3:19 AM [employer] 06/26/2023 4:30 AM [employer] Gaurav Nogueira MD LAB - CHEMISTRY ORDERABLES Performing Organization Address City/[facility]/ZIP Co de Phone Number [address] [address], [place] [phone] * (ABNORMAL) COMPREHENSIVE METABOLIC PANEL (06/26/2023 3:19 AM [employer]) BUN 20 7 - 26 mg/dL 06/26/2023 4:59 AM [facility] Creatinine 0.54(L) 0.71 - 1.16 mg/dL 06/26/2023 4:59 AM [facility] Sodium 141 136 - 145 mmol/L 06/26/2023 4:59 AM [facility] Potassium 4.8(H) 3.5 - 4.5 mmol/L 06/26/2023 4:59 AM [facility] Chloride 106 98 - 107 mmol/L 06/26/2023 4:59 AM [facility] CO2 26 22 - 29 mmol/L 06/26/2023 4:59 AM [facility] Glucose 97 70 - 115 mg/dL 06/26/2023 4:59 AM [facility] Calcium 9.0 8.4 - 10.2 mg/dL 06/26/2023 4:59 AM [facility] Protein Total 7.4 6.0 - 8.3 g/dL 06/26/2023 4:59 AM [facility] Albumin 2.8(L) 3.4 - 5.0 g/dL 06/26/2023 4:59 AM [facility] Bilirubin Total 0.2 0.2 - 1.2 mg/dL 06/26/2023 4:59 AM [facility] Alkaline Phosphatase 105 40 - 150 U/L 06/26/2023 4:59 AM [facility] ALT 21 5 - 55 U/L 06/26/2023 4:59 AM [facility] AST 21 5 - 34 U/L 06/26/2023 4:59 AM [facility] Anion Gap 9 6 - 16 06/26/2023 4:59 AM [facility] BUN/Creatinine Ratio 37(H) 7 - 23 06/26/2023 4:59 AM [facility] Osmolality Calculated 295 275 - 295 mOsm/kg 06/26/2023 4:59 AM [facility] Albumin/Globulin Ratio 0.6(L) 1.1 - 2.3 06/26/2023 4:59 AM [facility] eGFR by CKD-EPI >90 >=90 mL/min/1.7 3 m2 06/26/2023 4:59 AM [facility] Blood BLOOD SPECIMEN / Unknown Lab Venipuncture / Unknown 06/26/2023 3:19 AM [employer] 06/26/2023 4:30 AM [facility] Gaurav Nogueira MD LAB - CHEMISTRY ORDERABLES Performing Organization Address City/State/[facility] Co de Phone Number [facility] [address] [place] [phone] [phone] * (ABNORMAL) CBC W AUTO DIFFERENTIAL (06/26/2023 3:19 AM [facility]) WBC 7.9 4.0 - 10.7 x10E9/L 06/26/2023 4:40 AM [facility] RBC Count 3.98(L) 4.30 - 5.80 x10E12/L 06/26/2023 4:40 AM [facility] Hemoglobin 12.8(L) 13.3 - 17.5 g/dL 06/26/2023 4:40 AM [facility] Hematocrit 38.1(L) 38.7 - 51.1 % 06/26/2023 4:40 AM [facility] MCV 95.7 80.0 - 98.0 fL 06/26/2023 4:40 AM [facility] MCH 32.2 26.7 - 33.6 pg 06/26/2023 4:40 AM [facility] MCHC 33.6 31.7 - 36.3 g/dL 06/26/2023 4:40 AM [facility] RDW-CV 15.5(H) 11.3 - 14.8 % 06/26/2023 4:40 AM [facility] Platelet Count 259 150 - 420 x10E9/L 06/26/2023 4:40 AM [facility] MPV 12.7(H) 7.8 - 11.4 fL 06/26/2023 4:40 AM [facility] Neutrophil % 45.1 41.0 - 74.0 % 06/26/2023 4:40 AM [facility] Lymphocyte % 40.6 17.0 - 47.0 % 06/26/2023 4:40 AM [facility] Monocyte % 9.8 3.0 - 11.0 % 06/26/2023 4:40 AM [facility] Eosinophil % 3.7 0.0 - 7.0 % 06/26/2023 4:40 AM [facility] Basophil % 0.3 0.0 - 1.6 % 06/26/2023 4:40 AM [facility] Immature Granulocytes % 0.5 0.0 - 1.0 % 06/26/2023 4:40 AM [facility] Neutrophil Absolute 3.54 1.60 - 7.50 x10E9/L 06/26/2023 4:40 AM [facility] Lymphocyte Absolute 3.19 1.00 - 4.40 x10E9/L 06/26/2023 4:40 AM [facility] Monocyte Absolute 0.77 0.15 - 1.00 x10E9/L 06/26/2023 4:40 AM [facility] Eosinophil Absolute 0.29 0.00 - 0.60 x10E9/L 06/26/2023 4:40 AM [facility] Basophil Absolute 0.02 0.00 - 0.13 x10E9/L 06/26/2023 4:40 AM [facility] NRBC 0.3(H) <=0.0 /100 WBC 06/26/2023 4:40 AM [facility] Blood BLOOD SPECIMEN / Unknown Lab Venipuncture / Unknown 06/26/2023 3:19 AM [employer] 06/26/2023 4:30 AM [employer] Gaurav Nogueira MD LAB - HEMATOLOGY ORDERABLES [address] [address], [facility] [phone] * VALPROIC ACID LEVEL (06/25/2023 2:33 PM [employer]) Valproic Acid Total 51 50 - 100 ug/mL 06/25/2023 3:58 PM [facility] Blood BLOOD SPECIMEN / Unknown Lab Venipuncture / Unknown 06/25/2023 2:33 PM [employer] 06/25/2023 3:19 PM [employer] Leatha Vinson MD LAB - CHEMISTRY ORDE [place]IT[place] [address] [address], [place] [phone] * XR CHEST 1VW PORTABLE (06/25/2023 7:49 AM [employer]) Anatomical Region Laterality Modality Chest Radiographic Cynthia ging 06/26/2023 11:2 0 AM [employer] Narrative 06/26/2023 10:42 PM [employer] PROCEDURE: ??XR CHEST 1VW PORTABLE, DATE/TIME OF EXAM: ??06/25/2023 7:49 AM, LOCATION ??[facility] INDICATION: J69.0: Aspiration pneumonitis ([facility]) ADDITIONAL CLINICAL INFORMATION: Ordering Provider Reason For Exam: ??r/o PNA COMPARISON: Chest x-ray 06/09/2023 FINDINGS/IMPRESSION: Tracheostomy tube terminates in mid thoracic trachea Diffuse interstitial opacities are seen, could be secondary vascular congestion or atypical pneumonia. There is no focal consolidation, pleural effusion, or pneumothorax. The cardiomediastinal silhouette is normal. The visible bony thorax is intact. Report dictated by Usman Arce MD, (vice president fixed income). John Thomason MD have personally reviewed and interpreted this examination/study. > Interpreting Provider: John Graham MD on 06/26/2023 10:42 PM Procedure Note John Graham MD - 06/26/2023 PROCEDURE: XR CHEST 1VW PORTABLE, DATE/TIME OF EXAM: 06/25/2023 7:49AM, LOCATION [facility] INDICATION: J69.0: Aspiration pneumonitis ([facility]) ADDITIONAL CLINICAL INFORMATION: Ordering Provider Reason For Exam: r/o PNA COMPARISON: Chest x-ray 06/09/2023 FINDINGS/IMPRESSION: Tracheostomy tube terminates in mid thoracic trachea Diffuse interstitial opacities are seen, could be secondary vascular congestion or atypical pneumonia. There is no focal consolidation,pleural effusion, or pneumothorax. The cardiomediastinal silhouette is normal.The visible bony thorax is intact. Report dictated by Usman Arce MD, (vice president fixed income). John Thomason MD have personally reviewed and interpreted this examination/study. > Interpreting Provider: John Graham MD on 06/26/2023 10:42 PM Leatha Vinson MD DIAGNOSTIC IMAGING O RDERABLES * PHOSPHORUS BLOOD (06/25/2023 6:56 AM [employer]) Phosphorus 2.9 2.8 - 5.1 mg/dL 06/25/2023 7:56 AM [facility] Blood BLOOD SPECIMEN / Unknown Lab Venipuncture / Unknown 06/25/2023 6:56 AM [employer] 06/25/2023 7:30 AM [employer] Gaurav Nogueira MD LAB - CHEMISTRY ORDERABLES [facility] [address] [place] [address], [facility] [phone] * MAGNESIUM BLOOD (06/25/2023 6:56 AM [employer]) Pathologist [facility] [place] Magnesium 1.8 1.6 - 2.6 mg/dL 06/25/2023 7:56 AM [facility] Blood BLOOD SPECIMEN / Unknown Lab Venipuncture / Unknown 06/25/2023 6:56 AM [employer] 06/25/2023 7:30 AM [employer] Gaurav Nogueira MD LAB - CHEMISTRY ORDERABLES [address] [address], [facility] [phone] * (ABNORMAL) COMPREHENSIVE METABOLIC PANEL (06/25/2023 6:56 AM [employer]) Pathologist [facility] [place] BUN 19 7 - 26 mg/dL 06/25/2023 7:56 AM [facility] Creatinine 0.52(L) 0.71 - 1.16 mg/dL 06/25/2023 7:56 AM [facility] Sodium 139 136 - 145 mmol/L 06/25/2023 7:56 AM [facility] Potassium 4.3 3.5 - 4.5 mmol/L 06/25/2023 7:56 AM [facility] Chloride 102 98 - 107 mmol/L 06/25/2023 7:56 AM [facility] CO2 25 22 - 29 mmol/L 06/25/2023 7:56 AM [facility] Glucose 109 70 - 115 mg/dL 06/25/2023 7:56 AM [facility] Calcium 9.3 8.4 - 10.2 mg/dL 06/25/2023 7:56 AM [facility] Protein Total 7.1 6.0 - 8.3 g/dL 06/25/2023 7:56 AM [facility] Albumin 2.7(L) 3.4 - 5.0 g/dL 06/25/2023 7:56 AM [facility] Bilirubin Total 0.3 0.2 - 1.2 mg/dL 06/25/2023 7:56 AM [facility] Alkaline Phosphatase 105 40 - 150 U/L 06/25/2023 7:56 AM [facility] ALT 18 5 - 55 U/L 06/25/2023 7:56 AM [facility] AST 18 5 - 34 U/L 06/25/2023 7:56 AM [facility] Anion Gap 12 6 - 16 06/25/2023 7:56 AM [facility] BUN/Creatinine Ratio 37(H) 7 - 23 06/25/2023 7:56 AM [facility] Osmolality Calculated 291 275 - 295 mOsm/kg 06/25/2023 7:56 AM [facility] Albumin/Globulin Ratio 0.6(L) 1.1 - 2.3 06/25/2023 7:56 AM [facility] eGFR by CKD-EPI >90 >=90 mL/min/1.7 3 m2 06/25/2023 7:56 AM [facility] Blood BLOOD SPECIMEN / Unknown Lab Venipuncture / Unknown 06/25/2023 6:56 AM [facility] 06/25/2023 7:30 AM [facility] Gaurav Nogueira MD LAB - CHEMISTRY ORDERABLES [facility] [address] [place] [phone], [facility] [phone] * (ABNORMAL) CBC W AUTO DIFFERENTIAL (06/25/2023 6:56 AM [facility]) WBC 11.2(H) 4.0 - 10.7 x10E9/L 06/25/2023 7:37 AM [facility] RBC Count 3.87(L) 4.30 - 5.80 x10E12/L 06/25/2023 7:37 AM [facility] Hemoglobin 12.4(L) 13.3 - 17.5 g/dL 06/25/2023 7:37 AM [facility] Hematocrit 37.4(L) 38.7 - 51.1 % 06/25/2023 7:37 AM [facility] MCV 96.6 80.0 - 98.0 fL 06/25/2023 7:37 AM [facility] MCH 32.0 26.7 - 33.6 pg 06/25/2023 7:37 AM [facility] MCHC 33.2 31.7 - 36.3 g/dL 06/25/2023 7:37 AM [facility] RDW-CV 15.7(H) 11.3 - 14.8 % 06/25/2023 7:37 AM [facility] Platelet Count 253 150 - 420 x10E9/L 06/25/2023 7:37 AM [facility] MPV 12.1(H) 7.8 - 11.4 fL 06/25/2023 7:37 AM [facility] Neutrophil % 52.7 41.0 - 74.0 % 06/25/2023 7:37 AM [facility] Lymphocyte % 35.5 17.0 - 47.0 % 06/25/2023 7:37 AM [facility] Monocyte % 9.1 3.0 - 11.0 % 06/25/2023 7:37 AM [facility] Eosinophil % 2.0 0.0 - 7.0 % 06/25/2023 7:37 AM [facility] Basophil % 0.2 0.0 - 1.6 % 06/25/2023 7:37 AM [facility] Immature Granulocytes % 0.5 0.0 - 1.0 % 06/25/2023 7:37 AM [facility] Neutrophil Absolute 5.92 1.60 - 7.50 x10E9/L 06/25/2023 7:37 AM [facility] Lymphocyte Absolute 3.99 1.00 - 4.40 x10E9/L 06/25/2023 7:37 AM [facility] Monocyte Absolute 1.02(H) 0.15 - 1.00 x10E9/L 06/25/2023 7:37 AM [facility] Eosinophil Absolute 0.23 0.00 - 0.60 x10E9/L 06/25/2023 7:37 AM [facility] Basophil Absolute 0.02 0.00 - 0.13 x10E9/L 06/25/2023 7:37 AM [facility] NRBC 0.2(H) <=0.0 /100 WBC 06/25/2023 7:37 AM [facility] Blood BLOOD SPECIMEN / Unknown Lab Venipuncture / Unknown 06/25/2023 6:56 AM [employer] 06/25/2023 7:30 AM [employer] Gaurav Nogueira MD LAB - HEMATOLOGY ORDERABLES Performing Organization Address City/[facility]/ZIP Co de Phone Number [address] [address], [facility] [phone] * VALPROIC ACID LEVEL (06/25/2023 6:56 AM [employer]) Pathologist [facility] [place] Valproic Acid Total 99 50 - 100 ug/mL 06/25/2023 8:06 AM [facility] Blood BLOOD SPECIMEN / Unknown Lab Venipuncture / Unknown 06/25/2023 6:56 AM [employer] 06/25/2023 7:56 AM [employer] Olga Peterson MD LAB - CHEMISTRY ORDE [place] [address] [address], [place] [phone] * (ABNORMAL) DIFFERENTIAL MANUAL (06/24/2023 11:46 AM [employer]) Pathologist [facility] [place] Neutrophil % 69 41 - 74 % 06/24/2023 12:55 PM [facility] Lymphocyte % 18 17 - 47 % 06/24/2023 12:55 PM [facility] Monocyte % 12(H) 3 - 11 % 06/24/2023 12:55 PM [facility] Eosinophil % 1 0 - 7 % 06/24/2023 12:55 PM [facility] Neutrophil Absolute 13.52(H) 1.60 - 7.50 x10E9/L 06/24/2023 12:55 PM [facility] Lymphocyte Absolute 3.53 1.00 - 4.40 x10E9/L 06/24/2023 12:55 PM [facility] Monocyte Absolute 2.35(H) 0.15 - 1.00 x10E9/L 06/24/2023 12:55 PM [facility] Eosinophil Absolute 0.20 0.00 - 0.60 x10E9/L 06/24/2023 12:55 PM [facility] RBC Morphology REVIEWED 06/24/2023 12:55 PM [facility] Polychromatic Cells MODERATE(A) (none) 06/24/2023 12:55 PM [facility] Schistocytes FEW(A) (none) 06/24/2023 12:55 PM [facility] Blood BLOOD SPECIMEN / Unknown Lab Venipuncture / Unknown 06/24/2023 11:46 AM [employer] 06/24/2023 11:56 AM [employer] Gaurav Nogueira MD LAB - HEMATOLOGY ORDERABLES Performing Organization Address [facility]/State/[facility] Co de Phone Number [address] [address], [facility] [phone] * (ABNORMAL) CBC W AUTO DIFFERENTIAL (06/24/2023 11:46 AM [employer]) WBC 19.6(H) 4.0 - 10.7 x10E9/L 06/24/2023 12:55 PM [facility] RBC Count 4.26(L) 4.30 - 5.80 x10E12/L 06/24/2023 12:55 PM [facility] Hemoglobin 13.7 13.3 - 17.5 g/dL 06/24/2023 12:55 PM [facility] Hematocrit 40.9 38.7 - 51.1 % 06/24/2023 12:55 PM [facility] MCV 96.0 80.0 - 98.0 fL 06/24/2023 12:55 PM [facility] MCH 32.2 26.7 - 33.6 pg 06/24/2023 12:55 PM [facility] MCHC 33.5 31.7 - 36.3 g/dL 06/24/2023 12:55 PM [facility] RDW-CV 15.3(H) 11.3 - 14.8 % 06/24/2023 12:55 PM [facility] Platelet Count 326 150 - 420 x10E9/L 06/24/2023 12:55 PM [facility] MPV 12.2(H) 7.8 - 11.4 fL 06/24/2023 12:55 PM [facility] NRBC 0.2(H) <=0.0 /100 WBC 06/24/2023 12:55 PM [facility] Blood BLOOD SPECIMEN / Unknown Lab Venipuncture / Unknown 06/24/2023 11:46 AM [employer] 06/24/2023 11:56 AM [employer] Gaurav Nogueira MD LAB - HEMATOLOGY ORDERABLES [address] [address], [facility] [phone] * PHOSPHORUS BLOOD (06/24/2023 7:16 AM [employer]) Phosphorus 3.2 2.8 - 5.1 mg/dL 06/24/2023 9:11 AM [facility] Blood BLOOD SPECIMEN / Unknown Lab Venipuncture / Unknown 06/24/2023 7:16 AM [employer] 06/24/2023 7:47 AM [employer] Gaurav Nogueira MD LAB - CHEMISTRY ORDERABLES [address] [address], [facility] [phone] * MAGNESIUM BLOOD (06/24/2023 7:16 AM [employer]) Magnesium 1.9 1.6 - 2.6 mg/dL 06/24/2023 9:11 AM [facility] Blood BLOOD SPECIMEN / Unknown Lab Venipuncture / Unknown 06/24/2023 7:16 AM [employer] 06/24/2023 7:47 AM [employer] Gaurav Nogueira MD LAB - CHEMISTRY ORDERABLES Performing Organization Address [facility] Co de Phone Number [facility] [address] [place] [phone] [phone] * (ABNORMAL) COMPREHENSIVE METABOLIC PANEL (06/24/2023 7:16 AM [facility]) BUN 16 7 - 26 mg/dL 06/24/2023 9:11 AM [facility] Creatinine 0.47(L) 0.71 - 1.16 mg/dL 06/24/2023 9:11 AM [facility] Sodium 138 136 - 145 mmol/L 06/24/2023 9:11 AM [facility] Potassium 4.9(H) 3.5 - 4.5 mmol/L 06/24/2023 9:11 AM [facility] Chloride 103 98 - 107 mmol/L 06/24/2023 9:11 AM [facility] CO2 25 22 - 29 mmol/L 06/24/2023 9:11 AM [facility] Glucose 91 70 - 115 mg/dL 06/24/2023 9:11 AM [facility] Calcium 9.9 8.4 - 10.2 mg/dL 06/24/2023 9:11 AM [facility] Protein Total 7.8 6.0 - 8.3 g/dL 06/24/2023 9:11 AM [facility] Albumin 3.0(L) 3.4 - 5.0 g/dL 06/24/2023 9:11 AM [facility] Bilirubin Total 0.3 0.2 - 1.2 mg/dL 06/24/2023 9:11 AM [facility] Alkaline Phosphatase 110 40 - 150 U/L 06/24/2023 9:11 AM [facility] ALT 24 5 - 55 U/L 06/24/2023 9:11 AM [facility] AST 22 5 - 34 U/L 06/24/2023 9:11 AM [facility] Anion Gap 10 6 - 16 06/24/2023 9:11 AM [facility] BUN/Creatinine Ratio 34(H) 7 - 23 06/24/2023 9:11 AM [facility] Osmolality Calculated 287 275 - 295 mOsm/kg 06/24/2023 9:11 AM [facility] Albumin/Globulin Ratio 0.6(L) 1.1 - 2.3 06/24/2023 9:11 AM [facility] eGFR by CKD-EPI >90 >=90 mL/min/1.7 3 m2 06/24/2023 9:11 AM [facility] Blood BLOOD SPECIMEN / Unknown Lab Venipuncture / Unknown 06/24/2023 7:16 AM [employer] 06/24/2023 7:47 AM [employer] Gaurav Nogueira MD LAB - CHEMISTRY ORDERABLES [address] [address], [facility] [phone] * VALPROIC ACID LEVEL (06/23/2023 11:06 AM [employer]) Pathologist [facility] [place] Valproic Acid Total 65 50 - 100 ug/mL 06/23/2023 12:24 PM [facility] Blood BLOOD SPECIMEN / Unknown Lab Venipuncture / Unknown 06/23/2023 11:06 AM [employer] 06/23/2023 11:07 AM [employer] Olga Peterson MD LAB - CHEMISTRY [place] [address] [address], [place] [phone] * (ABNORMAL) PHOSPHORUS BLOOD (06/23/2023 7:19 AM [employer]) Phosphorus 2.6(L) 2.8 - 5.1 mg/dL 06/23/2023 8:09 AM [facility] Blood BLOOD SPECIMEN / Unknown Lab Venipuncture / Unknown 06/23/2023 7:19 AM [employer] 06/23/2023 7:34 AM [employer] Gaurav Nogueira MD LAB - CHEMISTRY ORDERABLES Performing Organization Address City/[facility]/ZIP Co de Phone Number [address] [address], [facility] [phone] * MAGNESIUM BLOOD (06/23/2023 7:19 AM [employer]) Magnesium 1.8 1.6 - 2.6 mg/dL 06/23/2023 8:09 AM [facility] Blood BLOOD SPECIMEN / Unknown Lab Venipuncture / Unknown 06/23/2023 7:19 AM [employer] 06/23/2023 7:34 AM PROFESSOR OF [employer] Gaurav Nogueira MD LAB - CHEMISTRY ORDERABLES Performing Organization Address [facility]/ZIP Co de Phone Number [address] [address], [facility] [phone] * (ABNORMAL) COMPREHENSIVE METABOLIC PANEL (06/23/2023 7:19 AM PROFESSOR OF SPORT MANAGEMENT) BUN 16 7 - 26 mg/dL 06/23/2023 8:09 AM [facility] Creatinine 0.45(L) 0.71 - 1.16 mg/dL 06/23/2023 8:09 AM [facility] Sodium 137 136 - 145 mmol/L 06/23/2023 8:09 AM [facility] Potassium 4.7(H) 3.5 - 4.5 mmol/L 06/23/2023 8:09 AM [facility] Chloride 104 98 - 107 mmol/L 06/23/2023 8:09 AM [facility] CO2 26 22 - 29 mmol/L 06/23/2023 8:09 AM [facility] Glucose 109 70 - 115 mg/dL 06/23/2023 8:09 AM [facility] Calcium 9.3 8.4 - 10.2 mg/dL 06/23/2023 8:09 AM [facility] Protein Total 7.1 6.0 - 8.3 g/dL 06/23/2023 8:09 AM [facility] Albumin 2.7(L) 3.4 - 5.0 g/dL 06/23/2023 8:09 AM [facility] Bilirubin Total 0.2 0.2 - 1.2 mg/dL 06/23/2023 8:09 AM [facility] Alkaline Phosphatase 104 40 - 150 U/L 06/23/2023 8:09 AM [facility] ALT 25 5 - 55 U/L 06/23/2023 8:09 AM [facility] AST 21 5 - 34 U/L 06/23/2023 8:09 AM [facility] Anion Gap 7 6 - 16 06/23/2023 8:09 AM [facility] BUN/Creatinine Ratio 36(H) 7 - 23 06/23/2023 8:09 AM [facility] Osmolality Calculated 286 275 - 295 mOsm/kg 06/23/2023 8:09 AM [facility] Albumin/Globulin Ratio 0.6(L) 1.1 - 2.3 06/23/2023 8:09 AM [facility] eGFR by CKD-EPI >90 >=90 mL/min/1.7 3 m2 06/23/2023 8:09 AM [facility] Blood BLOOD SPECIMEN / Unknown Lab Venipuncture / Unknown 06/23/2023 7:19 AM [facility] 06/23/2023 7:34 AM [facility] Gaurav Nogueira MD LAB - CHEMISTRY ORDERABLES [address] [address], [facility] [phone] * (ABNORMAL) CBC W AUTO DIFFERENTIAL (06/23/2023 7:19 AM [facility]) WBC 8.9 4.0 - 10.7 x10E9/L 06/23/2023 7:42 AM [facility] RBC Count 3.78(L) 4.30 - 5.80 x10E12/L 06/23/2023 7:42 AM [facility] Hemoglobin 12.1(L) 13.3 - 17.5 g/dL 06/23/2023 7:42 AM [facility] Hematocrit 36.3(L) 38.7 - 51.1 % 06/23/2023 7:42 AM [facility] MCV 96.0 80.0 - 98.0 fL 06/23/2023 7:42 AM [facility] MCH 32.0 26.7 - 33.6 pg 06/23/2023 7:42 AM [facility] MCHC 33.3 31.7 - 36.3 g/dL 06/23/2023 7:42 AM [facility] RDW-CV 15.0(H) 11.3 - 14.8 % 06/23/2023 7:42 AM [facility] Platelet Count 299 150 - 420 x10E9/L 06/23/2023 7:42 AM [facility] MPV 11.8(H) 7.8 - 11.4 fL 06/23/2023 7:42 AM [facility] Neutrophil % 43.4 41.0 - 74.0 % 06/23/2023 7:42 AM [facility] Lymphocyte % 40.1 17.0 - 47.0 % 06/23/2023 7:42 AM [facility] Monocyte % 12.0(H) 3.0 - 11.0 % 06/23/2023 7:42 AM [facility] Eosinophil % 3.1 0.0 - 7.0 % 06/23/2023 7:42 AM [facility] Basophil % 0.4 0.0 - 1.6 % 06/23/2023 7:42 AM [facility] Immature Granulocytes % 1.0 0.0 - 1.0 % 06/23/2023 7:42 AM [facility] Neutrophil Absolute 3.85 1.60 - 7.50 x10E9/L 06/23/2023 7:42 AM [facility] Lymphocyte Absolute 3.57 1.00 - 4.40 x10E9/L 06/23/2023 7:42 AM [facility] Monocyte Absolute 1.07(H) 0.15 - 1.00 x10E9/L 06/23/2023 7:42 AM [facility] Eosinophil Absolute 0.28 0.00 - 0.60 x10E9/L 06/23/2023 7:42 AM [facility] Basophil Absolute 0.04 0.00 - 0.13 x10E9/L 06/23/2023 7:42 AM [facility] NRBC 0.6(H) <=0.0 /100 WBC 06/23/2023 7:42 AM [facility] Blood BLOOD SPECIMEN / Unknown Lab Venipuncture / Unknown 06/23/2023 7:19 AM [employer] 06/23/2023 7:34 AM [facility] Gaurav Nogueira MD LAB - HEMATOLOGY ORDERABLES Performing Organization Address [facility]/State/[facility] Co de Phone Number [facility] [address] [place] [address], [facility] [phone] * (ABNORMAL) BASIC METABOLIC PANEL (CALCIUM TOTAL) (06/22/2023 11:46 AM [employer]NAGEMENT) BUN 17 7 - 26 mg/dL 06/22/2023 1:10 PM [facility] Creatinine 0.50(L) 0.71 - 1.16 mg/dL 06/22/2023 1:10 PM [facility] Sodium 132(L) 136 - 145 mmol/L 06/22/2023 1:10 PM [facility] Potassium 4.7(H) 3.5 - 4.5 mmol/L 06/22/2023 1:10 PM [facility] Chloride 105 98 - 107 mmol/L 06/22/2023 1:10 PM [facility] CO2 25 22 - 29 mmol/L 06/22/2023 1:10 PM [facility] Glucose 126(H) 70 - 115 mg/dL 06/22/2023 1:10 PM [facility] Calcium 9.0 8.4 - 10.2 mg/dL 06/22/2023 1:10 PM [facility] Anion Gap 2(L) 6 - 16 06/22/2023 1:10 PM [facility] BUN/Creatinine Ratio 34(H) 7 - 23 06/22/2023 1:10 PM PROFESSOR OF [employer] MANAGEMENT [facility] Osmolality Calculated 277 275 - 295 mOsm/kg 06/22/2023 1:10 PM [facility] eGFR by CKD-EPI >90 >=90 mL/min/1.7 3 m2 06/22/2023 1:10 PM [facility] Blood BLOOD SPECIMEN / Unknown Lab Venipuncture / Unknown 06/22/2023 11:46 AM [employer] 06/22/2023 12:41 PM [employer]NAGEMENT Olga Peterson MD LAB - CHEMISTRY [place]DE [place] [address] [address], [place] [phone] * (ABNORMAL) PHOSPHORUS BLOOD (06/22/2023 6:08 AM PROF[employer]NAGEMENT) Phosphorus 2.7(L) 2.8 - 5.1 mg/dL 06/22/2023 7:21 AM PROF[employer] OF [employer] MANAG[employer] [facility] Blood BLOOD SPECIMEN / Unknown Lab Venipuncture / Unknown 06/22/2023 6:08 AM [employer] 06/22/2023 6:48 AM [employer]NAGEMENT Gaurav Nogueira MD LAB - CHEMISTRY ORDERABLES Performing Organization Address City/[facility]/ZIP Co de Phone Number [address] [address], [place] [phone] * MAGNESIUM BLOOD (06/22/2023 6:08 AM PROFESSOR OF SPORT MANAGEMENT) Magnesium 1.8 1.6 - 2.6 mg/dL 06/22/2023 7:21 AM PROF[employer] OF SP[employer] MANAGEMENT [facility] Blood BLOOD SPECIMEN / Unknown Lab Venipuncture / Unknown 06/22/2023 6:08 AM [employer]NAGEMENT 06/22/2023 6:48 AM PROF[employer] OF [employer] MANAGEMENT Gaurav Nogueira MD LAB - CHEMISTRY ORDERABLES Performing Organization Address City/[facility]/ZIP Co de Phone Number [address] [address], [place] [phone] * (ABNORMAL) COMPREHENSIVE METABOLIC PANEL (06/22/2023 6:08 AM [facility]) BUN 16 7 - 26 mg/dL 06/22/2023 7:21 AM [facility] Creatinine 0.52(L) 0.71 - 1.16 mg/dL 06/22/2023 7:21 AM [facility] Sodium 137 136 - 145 mmol/L 06/22/2023 7:21 AM [facility] Potassium 5.0(H) 3.5 - 4.5 mmol/L 06/22/2023 7:21 AM [facility] Chloride 106 98 - 107 mmol/L 06/22/2023 7:21 AM [facility] CO2 24 22 - 29 mmol/L 06/22/2023 7:21 AM [facility] Glucose 104 70 - 115 mg/dL 06/22/2023 7:21 AM [facility] Calcium 9.1 8.4 - 10.2 mg/dL 06/22/2023 7:21 AM [facility] Protein Total 7.2 6.0 - 8.3 g/dL 06/22/2023 7:21 AM [facility] Albumin 2.7(L) 3.4 - 5.0 g/dL 06/22/2023 7:21 AM [facility] Bilirubin Total 0.2 0.2 - 1.2 mg/dL 06/22/2023 7:21 AM [facility] Alkaline Phosphatase 91 40 - 150 U/L 06/22/2023 7:21 AM [facility] ALT 28 5 - 55 U/L 06/22/2023 7:21 AM [facility] AST 27 5 - 34 U/L 06/22/2023 7:21 AM [facility] Anion Gap 7 6 - 16 06/22/2023 7:21 AM [facility] BUN/Creatinine Ratio 31(H) 7 - 23 06/22/2023 7:21 AM [facility] Osmolality Calculated 285 275 - 295 mOsm/kg 06/22/2023 7:21 AM [facility] Albumin/Globulin Ratio 0.6(L) 1.1 - 2.3 06/22/2023 7:21 AM [facility] eGFR by CKD-EPI >90 >=90 mL/min/1.7 3 m2 06/22/2023 7:21 AM [facility] Blood BLOOD SPECIMEN / Unknown Lab Venipuncture / Unknown 06/22/2023 6:08 AM [employer] 06/22/2023 6:48 AM [employer]NAG[employer] Gaurav Nogueira MD LAB - CHEMISTRY ORDERABLES [facility] [address] [place] [address], [facility] [phone] * (ABNORMAL) CBC W AUTO DIFFERENTIAL (06/22/2023 6:08 AM [facility]) WBC 9.3 4.0 - 10.7 x10E9/L 06/22/2023 7:53 AM [facility] RBC Count 3.81(L) 4.30 - 5.80 x10E12/L 06/22/2023 7:53 AM [facility] Hemoglobin 12.2(L) 13.3 - 17.5 g/dL 06/22/2023 7:53 AM [facility] Hematocrit 36.2(L) 38.7 - 51.1 % 06/22/2023 7:53 AM [facility] MCV 95.0 80.0 - 98.0 fL 06/22/2023 7:53 AM [facility] MCH 32.0 26.7 - 33.6 pg 06/22/2023 7:53 AM [facility] MCHC 33.7 31.7 - 36.3 g/dL 06/22/2023 7:53 AM [facility] RDW-CV 14.7 11.3 - 14.8 % 06/22/2023 7:53 AM [facility] Platelet Count 318 150 - 420 x10E9/L 06/22/2023 7:53 AM [facility] MPV 12.3(H) 7.8 - 11.4 fL 06/22/2023 7:53 AM [facility] Neutrophil % 48.4 41.0 - 74.0 % 06/22/2023 7:53 AM [facility] Lymphocyte % 35.2 17.0 - 47.0 % 06/22/2023 7:53 AM [facility] Monocyte % 13.1(H) 3.0 - 11.0 % 06/22/2023 7:53 AM [facility] Eosinophil % 2.3 0.0 - 7.0 % 06/22/2023 7:53 AM [facility] Basophil % 0.2 0.0 - 1.6 % 06/22/2023 7:53 AM [facility] Immature Granulocytes % 0.8 0.0 - 1.0 % 06/22/2023 7:53 AM [facility] Neutrophil Absolute 4.53 1.60 - 7.50 x10E9/L 06/22/2023 7:53 AM [facility] Lymphocyte Absolute 3.28 1.00 - 4.40 x10E9/L 06/22/2023 7:53 AM [facility] Monocyte Absolute 1.22(H) 0.15 - 1.00 x10E9/L 06/22/2023 7:53 AM [facility] Eosinophil Absolute 0.21 0.00 - 0.60 x10E9/L 06/22/2023 7:53 AM [facility] Basophil Absolute 0.02 0.00 - 0.13 x10E9/L 06/22/2023 7:53 AM [facility] NRBC 0.8(H) <=0.0 /100 WBC 06/22/2023 7:53 AM [facility] Blood BLOOD SPECIMEN / Unknown Lab Venipuncture / Unknown 06/22/2023 6:08 AM [employer]NAG[employer] 06/22/2023 6:48 AM [facility] Gaurav Nogueira MD LAB - HEMATOLOGY ORDERABLES [address] [address], [facility] [phone] * PHOSPHORUS BLOOD (06/21/2023 5:57 AM [facility]) Phosphorus 2.9 2.8 - 5.1 mg/dL 06/21/2023 6:50 AM [facility] Blood BLOOD SPECIMEN / Unknown Lab Venipuncture / Unknown 06/21/2023 5:57 AM [employer] 06/21/2023 6:20 AM [employer]NAGEMENT Gaurav Nogueira MD LAB - CHEMISTRY ORDERABLES [address] [address], [facility] [phone] * MAGNESIUM BLOOD (06/21/2023 5:57 AM [employer]) Magnesium 1.8 1.6 - 2.6 mg/dL 06/21/2023 6:50 AM [facility] Blood BLOOD SPECIMEN / Unknown Lab Venipuncture / Unknown 06/21/2023 5:57 AM [employer]NAG[employer] 06/21/2023 6:20 AM [employer]NAG[employer] Gaurav Nogueira MD LAB - CHEMISTRY ORDERABLES [address] [address], [facility] [phone] * (ABNORMAL) COMPREHENSIVE METABOLIC PANEL (06/21/2023 5:57 AM [employer]) BUN 14 7 - 26 mg/dL 06/21/2023 6:50 AM [facility] Creatinine 0.52(L) 0.71 - 1.16 mg/dL 06/21/2023 6:50 AM [facility] Sodium 138 136 - 145 mmol/L 06/21/2023 6:50 AM [facility] Potassium 4.8(H) 3.5 - 4.5 mmol/L 06/21/2023 6:50 AM [facility] Chloride 105 98 - 107 mmol/L 06/21/2023 6:50 AM [facility] CO2 23 22 - 29 mmol/L 06/21/2023 6:50 AM [facility] Glucose 111 70 - 115 mg/dL 06/21/2023 6:50 AM [facility] Calcium 9.3 8.4 - 10.2 mg/dL 06/21/2023 6:50 AM [facility] Protein Total 7.2 6.0 - 8.3 g/dL 06/21/2023 6:50 AM [facility] Albumin 2.7(L) 3.4 - 5.0 g/dL 06/21/2023 6:50 AM [facility] Bilirubin Total 0.3 0.2 - 1.2 mg/dL 06/21/2023 6:50 AM [facility] Alkaline Phosphatase 94 40 - 150 U/L 06/21/2023 6:50 AM [facility] ALT 29 5 - 55 U/L 06/21/2023 6:50 AM [facility] AST 27 5 - 34 U/L 06/21/2023 6:50 AM [facility] Anion Gap 10 6 - 16 06/21/2023 6:50 AM [facility] BUN/Creatinine Ratio 27(H) 7 - 23 06/21/2023 6:50 AM [facility] Osmolality Calculated 287 275 - 295 mOsm/kg 06/21/2023 6:50 AM [facility] Albumin/Globulin Ratio 0.6(L) 1.1 - 2.3 06/21/2023 6:50 AM [facility] eGFR by CKD-EPI >90 >=90 mL/min/1.7 3 m2 06/21/2023 6:50 AM [facility] Blood BLOOD SPECIMEN / Unknown Lab Venipuncture / Unknown 06/21/2023 5:57 AM [facility] 06/21/2023 6:20 AM [facility] Gaurav Nogueira MD LAB - CHEMISTRY ORDERABLES [facility] [address] [place] [address], [facility] [phone] * (ABNORMAL) CBC W AUTO DIFFERENTIAL (06/21/2023 5:57 AM [facility]) WBC 7.8 4.0 - 10.7 x10E9/L 06/21/2023 6:27 AM [facility] RBC Count 3.81(L) 4.30 - 5.80 x10E12/L 06/21/2023 6:27 AM [facility] Hemoglobin 12.2(L) 13.3 - 17.5 g/dL 06/21/2023 6:27 AM [facility] Hematocrit 36.2(L) 38.7 - 51.1 % 06/21/2023 6:27 AM [facility] MCV 95.0 80.0 - 98.0 fL 06/21/2023 6:27 AM [facility] MCH 32.0 26.7 - 33.6 pg 06/21/2023 6:27 AM [facility] MCHC 33.7 31.7 - 36.3 g/dL 06/21/2023 6:27 AM [facility] RDW-CV 14.7 11.3 - 14.8 % 06/21/2023 6:27 AM [facility] Platelet Count 201 150 - 420 x10E9/L 06/21/2023 6:27 AM [facility] MPV 13.0(H) 7.8 - 11.4 fL 06/21/2023 6:27 AM [facility] Neutrophil % 38.5(L) 41.0 - 74.0 % 06/21/2023 6:27 AM [facility] Lymphocyte % 42.3 17.0 - 47.0 % 06/21/2023 6:27 AM [facility] Monocyte % 14.7(H) 3.0 - 11.0 % 06/21/2023 6:27 AM [facility] Eosinophil % 2.1 0.0 - 7.0 % 06/21/2023 6:27 AM [facility] Basophil % 0.3 0.0 - 1.6 % 06/21/2023 6:27 AM [facility] Immature Granulocytes % 2.1(H) 0.0 - 1.0 % 06/21/2023 6:27 AM [facility] Neutrophil Absolute 2.99 1.60 - 7.50 x10E9/L 06/21/2023 6:27 AM [facility] Lymphocyte Absolute 3.28 1.00 - 4.40 x10E9/L 06/21/2023 6:27 AM [facility] Monocyte Absolute 1.14(H) 0.15 - 1.00 x10E9/L 06/21/2023 6:27 AM [facility] Eosinophil Absolute 0.16 0.00 - 0.60 x10E9/L 06/21/2023 6:27 AM [facility] Basophil Absolute 0.02 0.00 - 0.13 x10E9/L 06/21/2023 6:27 AM [facility] NRBC 0.5(H) <=0.0 /100 WBC 06/21/2023 6:27 AM [facility] Blood BLOOD SPECIMEN / Unknown Lab Venipuncture / Unknown 06/21/2023 5:57 AM [employer]NAG[employer] 06/21/2023 6:20 AM [facility] Gaurav Nogueira MD LAB - HEMATOLOGY ORDERABLES Performing Organization Address [facility]/State/[facility] Co de Phone Number [facility] [address] [place] [address], [facility] [phone] * CLOBAZAM QUANT BLOOD (06/21/2023 5:57 AM [facility]) Clobazam 264 30 - 300 ng/mL 06/26/2023 2:42 PM [facility] ([facility]) Comment: INTERPRETIVE INFORMATION: Clobazam and Metabolite, Quant, ?S/P Clobazam Therapeutic Range: 30-300 ng/mL Toxic Range: Greater than 500 ng/mL N-Desmethylclobazam Therapeutic Range: 300-3000 ng/mL Toxic Range: Greater than 5000 ng/mL Clobazam is a benzodiazepine drug indicated for adjunctive treatment for seizures associated with Glen-Gastaut syndrome in patients 2 years and older. ??The therapeutic range is based on serum, pre-dose (trough) draw collection at steady-state concentration. ??The pharmacokinetics of clobazam are influenced by drug-drug interactions and by poor [id number] metabolism. ??The metabolite, N-desmethylclobazam has about 20% activity of clobazam. ??Adverse effects may include constipation, somnolence, sedation and skin rash. ??The concomitant use of clobazam with other central nervous system ([employer]ESS) depressants may increase the risk of somnolence and sedation. Test developed and characteristics determined by [facility]. See Compliance Statement B: [email or web address].Syapse/CS N-Desmethylclobazam 589 300 - 3000 ng/mL 06/26/2023 2:42 PM PROFESSOR OF SPORT MANAGEMENT [facility] ([facility]) Comment: Performed By: [facility] [address] [place] [address] Kiln Remover: Power Milian MD, PhD CLIA Number: [id number] Blood BLOOD SPECIMEN / Unknown Lab Venipuncture / Unknown 06/21/2023 5:57 AM [employer]NAG[employer] 06/21/2023 6:17 AM [employer] MANAGEMENT Norma Briones MD LAB - CHEMI STRY ORDERABLES Performing Organization Address [facility] Co de Phone Number [id number] [place] [address] * VALPROIC ACID LEVEL (06/21/2023 5:57 AM PROF[employer] MANAGEMENT) Valproic Acid Total 53 50 - 100 ug/mL 06/21/2023 7:12 AM PROF[employer] OF SPORT MANAGEMENT [facility] Blood BLOOD SPECIMEN / Unknown Lab Venipuncture / Unknown 06/21/2023 5:57 AM [employer]NAGEMENT 06/21/2023 6:17 AM PROF[employer] MANAGEMENT Norma Briones MD LAB - CHEMI STRY ORDERABLES [address] [address], [facility] [phone] * (ABNORMAL) LEVETIRACETAM LEVEL (06/21/2023 5:57 AM PROF[employer] MANAGEMENT) Levetiracetam 47(H) 10 - 40 ug/mL 06/22/2023 11:20 PM PROFESSOR OF SPORT MANAGEMENT [facility] ([facility]) Comment: INTERPRETIVE INFORMATION: Keppra (Levetiracetam) Therapeutic Range: ??10-40 ug/mL ?Toxic: ??Not well Established Pharmacokinetics of levetiracetam are affected by renal function. Adverse effects may include somnolence, weakness, headache and vomiting. This levetiracetam (Keppra) immunoassay uses the [employer] reagents, which has known cross-reactivity with the drug brivaracetam (Briviact) and may report inaccurate results. Patients transitioning from levetiracetam to brivaracetam or those who are using both medications should not monitor drug concentrations with the [employer] assay. These patients should be monitored using a validated chromatographic methodology that distinguishes between drugs to determine drug concentrations. Performed By: [facility] [address] [place] [address] Kiln Remover: Power Milian MD, PhD CLIA Number: [id number] Blood BLOOD SPECIMEN / Unknown Lab Venipuncture / Unknown 06/21/2023 5:57 AM [employer] MANAGEMENT 06/21/2023 6:17 AM PROF[employer]ORT MANAGEMENT Norma Briones MD LAB - [facility] DRUG MONITORING ORDERABLES [facility] ([facility]) [address] [place] [address], [facility] * CT HEAD WO CONTRAST (06/20/2023 1:04 PM PROFESSOR [employer] MANAGEMENT) Anatomical Region Laterality Modality Head Computed Tomogra phy 06/20/2023 1:08 PM PROF[employer] MANAGEMENT Impressions 06/20/2023 1:35 PM [employer] MANAGEMENT IMPRESSION: 1.No acute intracranial process. 2.Chronic small vessel ischemic disease of the brain with cerebral volume loss. 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 Report dictated by Chai Mcneil DO (Clinical Documentation Manager). I, Jason Sanchez MD have personally reviewed and interpreted this examination/study. > Interpreting Provider: aJson Sanchez MD on 06/20/2023 1:35 PM Narrative 06/20/2023 1:35 PM PROF[employer]OR [employer] SPORT MANAGEMENT PROCEDURE: ??CT HEAD WO CONTRAST, DATE/TIME OF EXAM: ??06/20/2023 1:05 PM, LOCATION ??[facility] INDICATION: R56.9: Seizures ([facility]) EXAMINATION: Computed tomography (CT) of the head without contrast ADDITIONAL CLINICAL INFORMATION: Ordering Provider Reason For Exam: ??breakthrough seizure CONTRAST: ??None ?? TECHNIQUE: CT of the head was performed without contrast according to standard protocol. CT dose reduction technique was used, including Automated Exposure Control. COMPARISON: CT head dated 06/09/2023. FINDINGS: No acute intra- or extra-axial fluid collections are identified. There is moderate cerebral volume loss with associated ex vacuo ventricular dilatation, similar in appearance to prior exam. Bicoronal diameter of the lateral ventricles at the level of the foramen of Hensley measures 5.1 cm (series 5, image 39). The basilar cisterns are patent. No mass effect or midline shift is seen. The garber-white matter differentiation is normal. Periventricular white matter hypoattenuation is indicative of chronic small vessel ischemic disease. There is vascular calcification of the carotid siphons. There is a chronic infarct in the right occipital lobe. No acute calvarial fracture is identified. The orbits appear normal. The right maxillary sinus is opacified, otherwise the paranasal sinuses are clear. The right greater than left mastoid air cells are mildly opacified. A cystic subcutaneous lesion is again noted in the left parietal scalp. Procedure Note Jason Sanchez MD - 06/20/2023 PROCEDURE: CT HEAD WO CONTRAST, DATE/TIME OF EXAM: 06/20/2023 1:05 PM, LOCATION [facility] INDICATION: R56.9: Seizures ([facility] EXAMINATION: Computed tomography (CT) of the head without contrast ADDITIONAL CLINICAL INFORMATION: Ordering Provider Reason For Exam: breakthrough seizure CONTRAST: None TECHNIQUE: CT of the head was performed without contrast according to standard protocol. CT dose reduction technique was used, including Automated Exposure Control. COMPARISON: CT head dated 06/09/2023. FINDINGS: No acute intra- or extra-axial fluid collections are identified. Thereis moderate cerebral volume loss with associated ex vacuo ventricular dilatation, similar in appearance to prior exam. Bicoronal diameter ofthe lateral ventricles at the level of the foramen of Hensley measures 5.1 cm (series 5, image 39). The basilar cisterns are patent. No mass effect or midline shift is seen. The garber-white matter differentiation is normal. Periventricular white matter hypoattenuation is indicative of chronicsmall vessel ischemic disease. There is vascular calcification of the carotid siphons. There is a chronic infarct in the right occipital lobe. No acute calvarial fracture is identified. The orbits appear normal. The right maxillary sinus is opacified, otherwise the paranasal sinuses are clear. The right greater than left mastoid air cells are mildly opacified. A cystic subcutaneous lesion is again noted in the left parietal scalp. IMPRESSION: 1.No acute intracranial process. 2.Chronic small vessel ischemic disease of the brain with cerebralvolume loss. 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 Report dictated by Chai Mcneil DO (Clinical Documentation Manager). I, Jason Sanchez MD have personally reviewed and interpreted this examination/study. > Interpreting Provider: Jason Sanchez MD on 06/20/2023 1:35 PM Norma Briones MD CT ORDERABL ES * PHOSPHORUS BLOOD (06/20/2023 5:46 AM [employer]) Phosphorus 2.8 2.8 - 5.1 mg/dL 06/20/2023 6:37 AM PROF[employer]NAG[employer] [facility] Blood BLOOD SPECIMEN / Unknown Lab Venipuncture / Unknown 06/20/2023 5:46 AM [employer] 06/20/2023 6:10 AM PROF[employer]NAG[employer] Gaurav Nogueira MD LAB - CHEMISTRY ORDERABLES Performing Organization Address City/State/[facility] Co de Phone Number [address] [address], [facility] [phone] * MAGNESIUM BLOOD (06/20/2023 5:46 AM PROF[employer]NAG[employer]) Magnesium 1.9 1.6 - 2.6 mg/dL 06/20/2023 6:37 AM PROF[employer] [facility] Blood BLOOD SPECIMEN / Unknown Lab Venipuncture / Unknown 06/20/2023 5:46 AM [employer] 06/20/2023 6:10 AM [employer] Gaurav Nogueira MD LAB - CHEMISTRY ORDERABLES [facility] [address] [place] [address], [facility] [phone] * (ABNORMAL) COMPREHENSIVE METABOLIC PANEL (06/20/2023 5:46 AM [facility]) BUN 13 7 - 26 mg/dL 06/20/2023 6:37 AM [facility] Creatinine 0.51(L) 0.71 - 1.16 mg/dL 06/20/2023 6:37 AM [facility] Sodium 138 136 - 145 mmol/L 06/20/2023 6:37 AM [facility] Potassium 4.8(H) 3.5 - 4.5 mmol/L 06/20/2023 6:37 AM [facility] Chloride 107 98 - 107 mmol/L 06/20/2023 6:37 AM [facility] CO2 26 22 - 29 mmol/L 06/20/2023 6:37 AM [facility] Glucose 114 70 - 115 mg/dL 06/20/2023 6:37 AM [facility] Calcium 9.6 8.4 - 10.2 mg/dL 06/20/2023 6:37 AM [facility] Protein Total 7.2 6.0 - 8.3 g/dL 06/20/2023 6:37 AM [facility] Albumin 2.7(L) 3.4 - 5.0 g/dL 06/20/2023 6:37 AM [facility] Bilirubin Total 0.3 0.2 - 1.2 mg/dL 06/20/2023 6:37 AM [facility] Alkaline Phosphatase 84 40 - 150 U/L 06/20/2023 6:37 AM [facility] ALT 31 5 - 55 U/L 06/20/2023 6:37 AM [facility] AST 29 5 - 34 U/L 06/20/2023 6:37 AM [facility] Anion Gap 5(L) 6 - 16 06/20/2023 6:37 AM [facility] BUN/Creatinine Ratio 25(H) 7 - 23 06/20/2023 6:37 AM [facility] Osmolality Calculated 287 275 - 295 mOsm/kg 06/20/2023 6:37 AM [facility] Albumin/Globulin Ratio 0.6(L) 1.1 - 2.3 06/20/2023 6:37 AM [facility] eGFR by CKD-EPI >90 >=90 mL/min/1.7 3 m2 06/20/2023 6:37 AM [facility] Blood BLOOD SPECIMEN / Unknown Lab Venipuncture / Unknown 06/20/2023 5:46 AM [employer] 06/20/2023 6:10 AM [facility] Gaurav Nogueira MD LAB - CHEMISTRY ORDERABLES Performing Organization Address City/State/[facility] Co de Phone Number [facility] [address] [place] [phone], [facility] [phone] * (ABNORMAL) CBC W AUTO DIFFERENTIAL (06/20/2023 5:46 AM [facility]) WBC 8.3 4.0 - 10.7 x10E9/L 06/20/2023 6:21 AM [facility] RBC Count 3.77(L) 4.30 - 5.80 x10E12/L 06/20/2023 6:21 AM [facility] Hemoglobin 12.1(L) 13.3 - 17.5 g/dL 06/20/2023 6:21 AM [facility] Hematocrit 35.9(L) 38.7 - 51.1 % 06/20/2023 6:21 AM [facility] MCV 95.2 80.0 - 98.0 fL 06/20/2023 6:21 AM [facility] MCH 32.1 26.7 - 33.6 pg 06/20/2023 6:21 AM [facility] MCHC 33.7 31.7 - 36.3 g/dL 06/20/2023 6:21 AM [facility] RDW-CV 14.5 11.3 - 14.8 % 06/20/2023 6:21 AM [facility] Platelet Count 283 150 - 420 x10E9/L 06/20/2023 6:21 AM [facility] MPV 12.4(H) 7.8 - 11.4 fL 06/20/2023 6:21 AM [facility] Neutrophil % 42.8 41.0 - 74.0 % 06/20/2023 6:21 AM [facility] Lymphocyte % 41.0 17.0 - 47.0 % 06/20/2023 6:21 AM [facility] Monocyte % 11.4(H) 3.0 - 11.0 % 06/20/2023 6:21 AM [facility] Eosinophil % 1.9 0.0 - 7.0 % 06/20/2023 6:21 AM [facility] Basophil % 0.2 0.0 - 1.6 % 06/20/2023 6:21 AM [facility] Immature Granulocytes % 2.7(H) 0.0 - 1.0 % 06/20/2023 6:21 AM [facility] Neutrophil Absolute 3.55 1.60 - 7.50 x10E9/L 06/20/2023 6:21 AM [facility] Lymphocyte Absolute 3.40 1.00 - 4.40 x10E9/L 06/20/2023 6:21 AM [facility] Monocyte Absolute 0.95 0.15 - 1.00 x10E9/L 06/20/2023 6:21 AM [facility] Eosinophil Absolute 0.16 0.00 - 0.60 x10E9/L 06/20/2023 6:21 AM [facility] Basophil Absolute 0.02 0.00 - 0.13 x10E9/L 06/20/2023 6:21 AM [facility] NRBC 0.7(H) <=0.0 /100 WBC 06/20/2023 6:21 AM [facility] Blood BLOOD SPECIMEN / Unknown Lab Venipuncture / Unknown 06/20/2023 5:46 AM [employer] 06/20/2023 6:10 AM [facility] Gaurav Nogueira MD LAB - HEMATOLOGY ORDERABLES [facility] [address] [place] [address], [place] [phone] * (ABNORMAL) PHOSPHORUS BLOOD (06/19/2023 11:57 AM [employer]) Phosphorus 2.7(L) 2.8 - 5.1 mg/dL 06/19/2023 1:36 PM [facility] Blood BLOOD SPECIMEN / Unknown Lab Venipuncture / Unknown 06/19/2023 11:57 AM [employer] 06/19/2023 1:08 PM [employer] Gaurav Nogueira MD LAB - CHEMISTRY ORDERABLES [facility] [address] [place] [address], [facility] [phone] * MAGNESIUM BLOOD (06/19/2023 11:57 AM [employer]) Pathologist [facility] [place] Magnesium 1.9 1.6 - 2.6 mg/dL 06/19/2023 1:36 PM [facility] Blood BLOOD SPECIMEN / Unknown Lab Venipuncture / Unknown 06/19/2023 11:57 AM [employer] 06/19/2023 1:08 PM [employer] Gaurav Nogueira MD LAB - CHEMISTRY ORDERABLES [facility] [address] [place] [phone], [place] [phone] * (ABNORMAL) COMPREHENSIVE METABOLIC PANEL (06/19/2023 11:57 AM [employer]) Pathologist [facility] [place] BUN 12 7 - 26 mg/dL 06/19/2023 1:36 PM [facility] Creatinine 0.50(L) 0.71 - 1.16 mg/dL 06/19/2023 1:36 PM [facility] Sodium 140 136 - 145 mmol/L 06/19/2023 1:36 PM [facility] Potassium 4.9(H) 3.5 - 4.5 mmol/L 06/19/2023 1:36 PM [facility] Chloride 108(H) 98 - 107 mmol/L 06/19/2023 1:36 PM [facility] CO2 26 22 - 29 mmol/L 06/19/2023 1:36 PM [facility] Glucose 96 70 - 115 mg/dL 06/19/2023 1:36 PM [facility] Calcium 9.5 8.4 - 10.2 mg/dL 06/19/2023 1:36 PM [facility] Protein Total 6.9 6.0 - 8.3 g/dL 06/19/2023 1:36 PM [facility] Albumin 2.6(L) 3.4 - 5.0 g/dL 06/19/2023 1:36 PM [facility] Bilirubin Total 0.2 0.2 - 1.2 mg/dL 06/19/2023 1:36 PM [facility] Alkaline Phosphatase 80 40 - 150 U/L 06/19/2023 1:36 PM [facility] ALT 29 5 - 55 U/L 06/19/2023 1:36 PM [facility] AST 28 5 - 34 U/L 06/19/2023 1:36 PM [facility] Anion Gap 6 6 - 16 06/19/2023 1:36 PM [facility] BUN/Creatinine Ratio 24(H) 7 - 23 06/19/2023 1:36 PM [facility] Osmolality Calculated 290 275 - 295 mOsm/kg 06/19/2023 1:36 PM [facility] Albumin/Globulin Ratio 0.6(L) 1.1 - 2.3 06/19/2023 1:36 PM [facility] eGFR by CKD-EPI >90 >=90 mL/min/1.7 3 m2 06/19/2023 1:36 PM [facility] Blood BLOOD SPECIMEN / Unknown Lab Venipuncture / Unknown 06/19/2023 11:57 AM [employer] 06/19/2023 1:08 PM [facility] Gaurav Nogueira MD LAB - CHEMISTRY ORDERABLES [facility] [address] [place] [phone], [facility] [phone] * (ABNORMAL) CBC W AUTO DIFFERENTIAL (06/19/2023 11:57 AM [facility]) [facility] WBC 8.9 4.0 - 10.7 x10E9/L 06/19/2023 1:52 PM [facility] RBC Count 3.69(L) 4.30 - 5.80 x10E12/L 06/19/2023 1:52 PM [facility] Hemoglobin 11.7(L) 13.3 - 17.5 g/dL 06/19/2023 1:52 PM [facility] Hematocrit 34.7(L) 38.7 - 51.1 % 06/19/2023 1:52 PM [facility] MCV 94.0 80.0 - 98.0 fL 06/19/2023 1:52 PM [facility] MCH 31.7 26.7 - 33.6 pg 06/19/2023 1:52 PM [facility] MCHC 33.7 31.7 - 36.3 g/dL 06/19/2023 1:52 PM [facility] RDW-CV 14.3 11.3 - 14.8 % 06/19/2023 1:52 PM [facility] Platelet Count 271 150 - 420 x10E9/L 06/19/2023 1:52 PM [facility] MPV 12.8(H) 7.8 - 11.4 fL 06/19/2023 1:52 PM [facility] Neutrophil % 45.4 41.0 - 74.0 % 06/19/2023 1:52 PM [facility] Lymphocyte % 36.5 17.0 - 47.0 % 06/19/2023 1:52 PM [facility] Monocyte % 13.4(H) 3.0 - 11.0 % 06/19/2023 1:52 PM [facility] Eosinophil % 2.5 0.0 - 7.0 % 06/19/2023 1:52 PM [facility] Basophil % 0.3 0.0 - 1.6 % 06/19/2023 1:52 PM [facility] Immature Granulocytes % 1.9(H) 0.0 - 1.0 % 06/19/2023 1:52 PM [facility] Neutrophil Absolute 4.02 1.60 - 7.50 x10E9/L 06/19/2023 1:52 PM [facility] Lymphocyte Absolute 3.23 1.00 - 4.40 x10E9/L 06/19/2023 1:52 PM [facility] Monocyte Absolute 1.19(H) 0.15 - 1.00 x10E9/L 06/19/2023 1:52 PM [facility] Eosinophil Absolute 0.22 0.00 - 0.60 x10E9/L 06/19/2023 1:52 PM [facility] Basophil Absolute 0.03 0.00 - 0.13 x10E9/L 06/19/2023 1:52 PM [facility] NRBC 0.7(H) <=0.0 /100 WBC 06/19/2023 1:52 PM [facility] Blood BLOOD SPECIMEN / Unknown Lab Venipuncture / Unknown 06/19/2023 11:57 AM [employer] 06/19/2023 1:08 PM [employer] Gaurav Nogueira MD LAB - HEMATOLOGY ORDERABLES [address] [address], [facility] [phone] * (ABNORMAL) PHOSPHORUS BLOOD (06/18/2023 9:08 AM [employer]) Phosphorus 2.4(L) 2.8 - 5.1 mg/dL 06/18/2023 10:30 AM [facility] Blood BLOOD SPECIMEN / Unknown Lab Venipuncture / Unknown 06/18/2023 9:08 AM [employer] 06/18/2023 10:00 AM [employer] Gaurav Nogueira MD LAB - CHEMISTRY ORDERABLES [address] [address], [facility] [phone] * MAGNESIUM BLOOD (06/18/2023 9:08 AM [employer]) Magnesium 1.8 1.6 - 2.6 mg/dL 06/18/2023 10:30 AM [facility] Blood BLOOD SPECIMEN / Unknown Lab Venipuncture / Unknown 06/18/2023 9:08 AM [facility] 06/18/2023 10:00 AM [facility] Gaurav Modesta Mirlande OLSEN LAB - CHEMISTRY ORDERABLES Performing Organization Address [facility]/State/ZIP Co de Phone Number [facility] [address] [place] [address], [facility] [phone] * (ABNORMAL) COMPREHENSIVE METABOLIC PANEL (06/18/2023 9:08 AM [facility]) BUN 11 7 - 26 mg/dL 06/18/2023 10:30 AM [facility] Creatinine 0.46(L) 0.71 - 1.16 mg/dL 06/18/2023 10:30 AM [facility] Sodium 139 136 - 145 mmol/L 06/18/2023 10:30 AM [facility] Potassium 4.6(H) 3.5 - 4.5 mmol/L 06/18/2023 10:30 AM [facility] Chloride 108(H) 98 - 107 mmol/L 06/18/2023 10:30 AM [facility] CO2 25 22 - 29 mmol/L 06/18/2023 10:30 AM [facility] Glucose 109 70 - 115 mg/dL 06/18/2023 10:30 AM [facility] Calcium 9.1 8.4 - 10.2 mg/dL 06/18/2023 10:30 AM [facility] Protein Total 6.8 6.0 - 8.3 g/dL 06/18/2023 10:30 AM [facility] Albumin 2.6(L) 3.4 - 5.0 g/dL 06/18/2023 10:30 AM [facility] Bilirubin Total 0.2 0.2 - 1.2 mg/dL 06/18/2023 10:30 AM [facility] Alkaline Phosphatase 95 40 - 150 U/L 06/18/2023 10:30 AM [facility] ALT 28 5 - 55 U/L 06/18/2023 10:30 AM [facility] AST 31 5 - 34 U/L 06/18/2023 10:30 AM [facility] Anion Gap 6 6 - 16 06/18/2023 10:30 AM [facility] BUN/Creatinine Ratio 24(H) 7 - 23 06/18/2023 10:30 AM [facility] Osmolality Calculated 288 275 - 295 mOsm/kg 06/18/2023 10:30 AM [facility] Albumin/Globulin Ratio 0.6(L) 1.1 - 2.3 06/18/2023 10:30 AM [facility] eGFR by CKD-EPI >90 >=90 mL/min/1.7 3 m2 06/18/2023 10:30 AM [facility] Blood BLOOD SPECIMEN / Unknown Lab Venipuncture / Unknown 06/18/2023 9:08 AM [employer] 06/18/2023 10:00 AM [facility] Gaurav Nogueira MD LAB - CHEMISTRY ORDERABLES Performing Organization Address [facility] Co de Phone Number [address] [id number] [phone] * (ABNORMAL) CBC W AUTO DIFFERENTIAL (06/18/2023 9:08 AM [facility]) WBC 7.4 4.0 - 10.7 x10E9/L 06/18/2023 10:22 AM [facility] RBC Count 3.79(L) 4.30 - 5.80 x10E12/L 06/18/2023 10:22 AM [facility] Hemoglobin 12.0(L) 13.3 - 17.5 g/dL 06/18/2023 10:22 AM [facility] Hematocrit 35.7(L) 38.7 - 51.1 % 06/18/2023 10:22 AM [facility] MCV 94.2 80.0 - 98.0 fL 06/18/2023 10:22 AM [facility] MCH 31.7 26.7 - 33.6 pg 06/18/2023 10:22 AM [facility] MCHC 33.6 31.7 - 36.3 g/dL 06/18/2023 10:22 AM [facility] RDW-CV 14.1 11.3 - 14.8 % 06/18/2023 10:22 AM [facility] Platelet Count 198 150 - 420 x10E9/L 06/18/2023 10:22 AM [facility] MPV 06/18/2023 10:22 AM [facility] Comment:Unable to report Neutrophil % 40.6(L) 41.0 - 74.0 % 06/18/2023 10:22 AM [facility] Lymphocyte % 39.7 17.0 - 47.0 % 06/18/2023 10:22 AM [facility] Monocyte % 13.6(H) 3.0 - 11.0 % 06/18/2023 10:22 AM [facility] Eosinophil % 3.9 0.0 - 7.0 % 06/18/2023 10:22 AM [facility] Basophil % 0.4 0.0 - 1.6 % 06/18/2023 10:22 AM [facility] Immature Granulocytes % 1.8(H) 0.0 - 1.0 % 06/18/2023 10:22 AM [facility] Neutrophil Absolute 2.98 1.60 - 7.50 x10E9/L 06/18/2023 10:22 AM [facility] Lymphocyte Absolute 2.92 1.00 - 4.40 x10E9/L 06/18/2023 10:22 AM [facility] Monocyte Absolute 1.00 0.15 - 1.00 x10E9/L 06/18/2023 10:22 AM [facility] Eosinophil Absolute 0.29 0.00 - 0.60 x10E9/L 06/18/2023 10:22 AM [facility] Basophil Absolute 0.03 0.00 - 0.13 x10E9/L 06/18/2023 10:22 AM [facility] NRBC 0.7(H) <=0.0 /100 WBC 06/18/2023 10:22 AM [facility] Blood BLOOD SPECIMEN / Unknown Lab Venipuncture / Unknown 06/18/2023 9:08 AM [facility] 06/18/2023 10:00 AM [employer] Gaurav Nogueira MD LAB - HEMATOLOGY ORDERABLES Performing Organization Address City/[facility]/ZIP Co de Phone Number [address] [address], [facility] [phone] * (ABNORMAL) PHOSPHORUS BLOOD (06/17/2023 6:54 AM [employer]) Phosphorus 2.1(L) 2.8 - 5.1 mg/dL 06/17/2023 7:41 AM [employer] [facility] Blood BLOOD SPECIMEN / Unknown Lab Venipuncture / Unknown 06/17/2023 6:54 AM [employer] 06/17/2023 7:15 AM [employer] Gaurav Nogueira MD LAB - CHEMISTRY ORDERABLES Performing Organization Address [facility]/ZIP Co de Phone Number [address] [address], [facility] [phone] * MAGNESIUM BLOOD (06/17/2023 6:54 AM [employer]) Magnesium 1.8 1.6 - 2.6 mg/dL 06/17/2023 7:41 AM [facility] Blood BLOOD SPECIMEN / Unknown Lab Venipuncture / Unknown 06/17/2023 6:54 AM [employer] 06/17/2023 7:15 AM [employer] Gaurav Nogueira MD LAB - CHEMISTRY ORDERABLES Performing Organization Address City/[facility]/ZIP Co de Phone Number [address] [address], [facility] [phone] * (ABNORMAL) COMPREHENSIVE METABOLIC PANEL (06/17/2023 6:54 AM [employer]) BUN 10 7 - 26 mg/dL 06/17/2023 7:41 AM [facility] Creatinine 0.44(L) 0.71 - 1.16 mg/dL 06/17/2023 7:41 AM [facility] Sodium 139 136 - 145 mmol/L 06/17/2023 7:41 AM [facility] Potassium 4.8(H) 3.5 - 4.5 mmol/L 06/17/2023 7:41 AM [facility] Chloride 108(H) 98 - 107 mmol/L 06/17/2023 7:41 AM [facility] CO2 25 22 - 29 mmol/L 06/17/2023 7:41 AM [facility] Glucose 103 70 - 115 mg/dL 06/17/2023 7:41 AM [facility] Calcium 9.3 8.4 - 10.2 mg/dL 06/17/2023 7:41 AM [facility] Protein Total 7.0 6.0 - 8.3 g/dL 06/17/2023 7:41 AM [facility] Albumin 2.6(L) 3.4 - 5.0 g/dL 06/17/2023 7:41 AM [facility] Bilirubin Total 0.2 0.2 - 1.2 mg/dL 06/17/2023 7:41 AM [facility] Alkaline Phosphatase 90 40 - 150 U/L 06/17/2023 7:41 AM [facility] ALT 22 5 - 55 U/L 06/17/2023 7:41 AM [facility] AST 24 5 - 34 U/L 06/17/2023 7:41 AM [facility] Anion Gap 6 6 - 16 06/17/2023 7:41 AM [facility] BUN/Creatinine Ratio 23 7 - 23 06/17/2023 7:41 AM [facility] Osmolality Calculated 287 275 - 295 mOsm/kg 06/17/2023 7:41 AM [facility] Albumin/Globulin Ratio 0.6(L) 1.1 - 2.3 06/17/2023 7:41 AM [facility] eGFR by CKD-EPI >90 >=90 mL/min/1.7 3 m2 06/17/2023 7:41 AM [facility] Blood BLOOD SPECIMEN / Unknown Lab Venipuncture / Unknown 06/17/2023 6:54 AM [employer] 06/17/2023 7:15 AM [facility] Gaurav Nogueira MD LAB - CHEMISTRY ORDERABLES [facility] [address] [place] [address], [facility] [phone] * (ABNORMAL) CBC W AUTO DIFFERENTIAL (06/17/2023 6:54 AM [facility]) WBC 7.0 4.0 - 10.7 x10E9/L 06/17/2023 7:49 AM [facility] RBC Count 3.94(L) 4.30 - 5.80 x10E12/L 06/17/2023 7:49 AM [facility] Hemoglobin 12.6(L) 13.3 - 17.5 g/dL 06/17/2023 7:49 AM [facility] Hematocrit 37.5(L) 38.7 - 51.1 % 06/17/2023 7:49 AM [facility] MCV 95.2 80.0 - 98.0 fL 06/17/2023 7:49 AM [facility] MCH 32.0 26.7 - 33.6 pg 06/17/2023 7:49 AM [facility] MCHC 33.6 31.7 - 36.3 g/dL 06/17/2023 7:49 AM [facility] RDW-CV 13.9 11.3 - 14.8 % 06/17/2023 7:49 AM [facility] Platelet Count 166 150 - 420 x10E9/L 06/17/2023 7:49 AM [facility] MPV 06/17/2023 7:49 AM [facility] Comment:Unable to report Neutrophil % 36.1(L) 41.0 - 74.0 % 06/17/2023 7:49 AM [facility] Lymphocyte % 45.4 17.0 - 47.0 % 06/17/2023 7:49 AM [facility] Monocyte % 12.3(H) 3.0 - 11.0 % 06/17/2023 7:49 AM [facility] Eosinophil % 5.3 0.0 - 7.0 % 06/17/2023 7:49 AM [facility] Basophil % 0.3 0.0 - 1.6 % 06/17/2023 7:49 AM [facility] Immature Granulocytes % 0.6 0.0 - 1.0 % 06/17/2023 7:49 AM [facility] Neutrophil Absolute 2.53 1.60 - 7.50 x10E9/L 06/17/2023 7:49 AM [facility] Lymphocyte Absolute 3.17 1.00 - 4.40 x10E9/L 06/17/2023 7:49 AM [facility] Monocyte Absolute 0.86 0.15 - 1.00 x10E9/L 06/17/2023 7:49 AM [facility] Eosinophil Absolute 0.37 0.00 - 0.60 x10E9/L 06/17/2023 7:49 AM [facility] Basophil Absolute 0.02 0.00 - 0.13 x10E9/L 06/17/2023 7:49 AM [facility] NRBC 0.3(H) <=0.0 /100 WBC 06/17/2023 7:49 AM [facility] Blood BLOOD SPECIMEN / Unknown Lab Venipuncture / Unknown 06/17/2023 6:54 AM [employer] 06/17/2023 7:15 AM [employer] Gaurav Nogueira MD LAB - HEMATOLOGY ORDERABLES [address] [address], [facility] [phone] * PHOSPHORUS BLOOD (06/16/2023 2:51 AM [employer]) Phosphorus 3.4 2.8 - 5.1 mg/dL 06/16/2023 3:50 AM [facility] Blood BLOOD SPECIMEN / Unknown Venipuncture / Unknown 06/16/2023 2:51 AM [employer] 06/16/2023 3:20 AM [employer] Gaurav Nogueira MD LAB - CHEMISTRY ORDERABLES Performing Organization Address City/[facility]/ZIP Co de Phone Number [address] [address], [place] [phone] * MAGNESIUM BLOOD (06/16/2023 2:51 AM [employer]) Pathologist [facility] [place] Magnesium 1.9 1.6 - 2.6 mg/dL 06/16/2023 3:50 AM [facility] Blood BLOOD SPECIMEN / Unknown Venipuncture / Unknown 06/16/2023 2:51 AM [employer] 06/16/2023 3:20 AM [employer] Gaurav Nogueira MD LAB - CHEMISTRY ORDERABLES Performing Organization Address City/[facility] Co de Phone Number [facility] [address] [place] [address], [facility] [phone] * (ABNORMAL) COMPREHENSIVE METABOLIC PANEL (06/16/2023 2:51 AM [employer]) Pathologist [facility] [place] BUN 9 7 - 26 mg/dL 06/16/2023 3:50 AM [facility] Creatinine 0.47(L) 0.71 - 1.16 mg/dL 06/16/2023 3:50 AM [facility] Sodium 141 136 - 145 mmol/L 06/16/2023 3:50 AM [facility] Potassium 4.6(H) 3.5 - 4.5 mmol/L 06/16/2023 3:50 AM [facility] Chloride 107 98 - 107 mmol/L 06/16/2023 3:50 AM [facility] CO2 26 22 - 29 mmol/L 06/16/2023 3:50 AM [facility] Glucose 83 70 - 115 mg/dL 06/16/2023 3:50 AM [facility] Calcium 9.6 8.4 - 10.2 mg/dL 06/16/2023 3:50 AM [facility] Protein Total 7.4 6.0 - 8.3 g/dL 06/16/2023 3:50 AM [facility] Albumin 2.7(L) 3.4 - 5.0 g/dL 06/16/2023 3:50 AM [facility] Bilirubin Total 0.2 0.2 - 1.2 mg/dL 06/16/2023 3:50 AM [facility] Alkaline Phosphatase 79 40 - 150 U/L 06/16/2023 3:50 AM [facility] ALT 19 5 - 55 U/L 06/16/2023 3:50 AM [facility] AST 23 5 - 34 U/L 06/16/2023 3:50 AM [facility] Anion Gap 8 6 - 16 06/16/2023 3:50 AM [facility] BUN/Creatinine Ratio 19 7 - 23 06/16/2023 3:50 AM [facility] Osmolality Calculated 290 275 - 295 mOsm/kg 06/16/2023 3:50 AM [facility] Albumin/Globulin Ratio 0.6(L) 1.1 - 2.3 06/16/2023 3:50 AM [facility] eGFR by CKD-EPI >90 >=90 mL/min/1.7 3 m2 06/16/2023 3:50 AM [facility] Blood BLOOD SPECIMEN / Unknown Venipuncture / Unknown 06/16/2023 2:51 AM [employer] 06/16/2023 3:20 AM [facility] Gaurav Nogueira MD LAB - CHEMISTRY ORDERABLES [facility] [address] [place] [address], [facility] [phone] * (ABNORMAL) CBC W AUTO DIFFERENTIAL (06/16/2023 2:51 AM [facility]) WBC 5.8 4.0 - 10.7 x10E9/L 06/16/2023 3:53 AM [facility] RBC Count 4.15(L) 4.30 - 5.80 x10E12/L 06/16/2023 3:53 AM [facility] Hemoglobin 13.1(L) 13.3 - 17.5 g/dL 06/16/2023 3:53 AM [facility] Hematocrit 39.1 38.7 - 51.1 % 06/16/2023 3:53 AM [facility] MCV 94.2 80.0 - 98.0 fL 06/16/2023 3:53 AM [facility] MCH 31.6 26.7 - 33.6 pg 06/16/2023 3:53 AM [facility] MCHC 33.5 31.7 - 36.3 g/dL 06/16/2023 3:53 AM [facility] RDW-CV 13.8 11.3 - 14.8 % 06/16/2023 3:53 AM [facility] Platelet Count 129(L) 150 - 420 x10E9/L 06/16/2023 3:53 AM [facility] MPV 06/16/2023 3:53 AM [facility] Comment:Unable to report Neutrophil % 29.3(L) 41.0 - 74.0 % 06/16/2023 3:53 AM [facility] Lymphocyte % 54.5(H) 17.0 - 47.0 % 06/16/2023 3:53 AM [facility] Monocyte % 8.6 3.0 - 11.0 % 06/16/2023 3:53 AM [facility] Eosinophil % 6.9 0.0 - 7.0 % 06/16/2023 3:53 AM [facility] Basophil % 0.5 0.0 - 1.6 % 06/16/2023 3:53 AM [facility] Immature Granulocytes % 0.2 0.0 - 1.0 % 06/16/2023 3:53 AM [facility] Neutrophil Absolute 1.70 1.60 - 7.50 x10E9/L 06/16/2023 3:53 AM [facility] Lymphocyte Absolute 3.16 1.00 - 4.40 x10E9/L 06/16/2023 3:53 AM [facility] Monocyte Absolute 0.50 0.15 - 1.00 x10E9/L 06/16/2023 3:53 AM [facility] Eosinophil Absolute 0.40 0.00 - 0.60 x10E9/L 06/16/2023 3:53 AM [facility] Basophil Absolute 0.03 0.00 - 0.13 x10E9/L 06/16/2023 3:53 AM [facility] Blood BLOOD SPECIMEN / Unknown Venipuncture / Unknown 06/16/2023 2:51 AM [employer] 06/16/2023 3:20 AM [employer] Gaurav Nogueira MD LAB - HEMATOLOGY ORDERABLES Performing Organization Address [facility]/ZIP Co de Phone Number [address] [address], [facility] [phone] * VANCOMYCIN LEVEL TROUGH (06/16/2023 2:51 AM [employer]) Vancomycin Trough 17.7 10.0 - 20.0 ug/mL 06/16/2023 3:51 AM [employer]OR [employer]NAG[employer] [facility] Blood BLOOD SPECIMEN / Unknown Venipuncture / Unknown 06/16/2023 2:51 AM [employer] 06/16/2023 3:00 AM [employer] Narrative [facility] - 06/16/2023 3:51 AM [employer]NAGEMENT See institution protocol. Gaurav Nogueira MD LAB - CHEMISTRY ORDERABLES Performing Organization Address [facility] Co de Phone Number [address] [address], [facility] [phone] * (ABNORMAL) PHOSPHORUS BLOOD (06/15/2023 6:33 AM [employer]GEMENT) Phosphorus 2.1(L) 2.8 - 5.1 mg/dL 06/15/2023 7:21 AM [employer] [facility] Blood BLOOD SPECIMEN / Unknown Lab Venipuncture / Unknown 06/15/2023 6:33 AM [employer] 06/15/2023 6:53 AM [employer] Gaurav Nogueira MD LAB - CHEMISTRY ORDERABLES Performing Organization Address City/[facility]/ZIP Co de Phone Number [address] [address], [facility] [phone] * MAGNESIUM BLOOD (06/15/2023 6:33 AM [employer]) Magnesium 1.7 1.6 - 2.6 mg/dL 06/15/2023 7:21 AM [employer] [facility] Blood BLOOD SPECIMEN / Unknown Lab Venipuncture / Unknown 06/15/2023 6:33 AM [employer] 06/15/2023 6:53 AM [employer] Gaurav Nogueira MD LAB - CHEMISTRY ORDERABLES [facility] [address] [place] [address], [facility] [phone] * (ABNORMAL) COMPREHENSIVE METABOLIC PANEL (06/15/2023 6:33 AM [employer]) BUN 7 7 - 26 mg/dL 06/15/2023 7:20 AM [facility] Creatinine 0.47(L) 0.71 - 1.16 mg/dL 06/15/2023 7:20 AM [facility] Sodium 144 136 - 145 mmol/L 06/15/2023 7:20 AM [facility] Potassium 4.6(H) 3.5 - 4.5 mmol/L 06/15/2023 7:20 AM [facility] Chloride 108(H) 98 - 107 mmol/L 06/15/2023 7:20 AM [facility] CO2 27 22 - 29 mmol/L 06/15/2023 7:20 AM [facility] Glucose 105 70 - 115 mg/dL 06/15/2023 7:20 AM [facility] Calcium 9.9 8.4 - 10.2 mg/dL 06/15/2023 7:20 AM [facility] Protein Total 7.4 6.0 - 8.3 g/dL 06/15/2023 7:20 AM [facility] Albumin 2.7(L) 3.4 - 5.0 g/dL 06/15/2023 7:20 AM [facility] Bilirubin Total 0.2 0.2 - 1.2 mg/dL 06/15/2023 7:20 AM [facility] Alkaline Phosphatase 87 40 - 150 U/L 06/15/2023 7:20 AM [facility] ALT 15 5 - 55 U/L 06/15/2023 7:20 AM [facility] AST 22 5 - 34 U/L 06/15/2023 7:20 AM [facility] Anion Gap 9 6 - 16 06/15/2023 7:20 AM [facility] BUN/Creatinine Ratio 15 7 - 23 06/15/2023 7:20 AM [facility] Osmolality Calculated 296(H) 275 - 295 mOsm/kg 06/15/2023 7:20 AM [facility] Albumin/Globulin Ratio 0.6(L) 1.1 - 2.3 06/15/2023 7:20 AM [facility] eGFR by CKD-EPI >90 >=90 mL/min/1.7 3 m2 06/15/2023 7:20 AM [facility] Blood BLOOD SPECIMEN / Unknown Lab Venipuncture / Unknown 06/15/2023 6:33 AM [employer] 06/15/2023 6:53 AM [employer] Gaurav Nogueira MD LAB - CHEMISTRY ORDERABLES Performing Organization Address City/State/[facility] Co de Phone Number [facility] [address] [place] [phone], [facility] [phone] * (ABNORMAL) DIFFERENTIAL MANUAL (06/15/2023 6:32 AM [employer]) Neutrophil % 30(L) 41 - 74 % 06/15/2023 8:41 AM [facility] Lymphocyte % 52(H) 17 - 47 % 06/15/2023 8:41 AM [facility] Monocyte % 10 3 - 11 % 06/15/2023 8:41 AM [facility] Eosinophil % 8(H) 0 - 7 % 06/15/2023 8:41 AM [facility] Neutrophil Absolute 1.59(L) 1.60 - 7.50 x10E9/L 06/15/2023 8:41 AM [facility] Lymphocyte Absolute 2.76 1.00 - 4.40 x10E9/L 06/15/2023 8:41 AM [facility] Monocyte Absolute 0.53 0.15 - 1.00 x10E9/L 06/15/2023 8:41 AM [facility] Eosinophil Absolute 0.42 0.00 - 0.60 x10E9/L 06/15/2023 8:41 AM [facility] RBC Morphology REVIEWED 06/15/2023 8:41 AM [facility] [place] Cells MODERATE(A) (none) 06/15/2023 8:41 AM [facility] Schistocytes MODERATE(A) (none) 06/15/2023 8:41 AM [facility] Smudge Cells PRESENT(A) (none) 06/15/2023 8:41 AM [facility] Large Platelets PRESENT(A) (none) 8:41 AM [facility] Blood BLOOD SPECIMEN / Unknown Lab Venipuncture / Unknown 06/15/2023 6:32 AM [employer] 06/15/2023 6:52 AM [employer] Gaurav Nogueira MD LAB - HEMATOLOGY ORDERABLES [facility] [address] [place] [address], [facility] [phone] * (ABNORMAL) CBC W AUTO DIFFERENTIAL (06/15/2023 6:32 AM [employer]) WBC 5.3 4.0 - 10.7 x10E9/L 06/15/2023 8:41 AM [facility] RBC Count 4.06(L) 4.30 - 5.80 x10E12/L 06/15/2023 8:41 AM [facility] Hemoglobin 12.9(L) 13.3 - 17.5 g/dL 06/15/2023 8:41 AM [facility] Hematocrit 38.2(L) 38.7 - 51.1 % 06/15/2023 8:41 AM [facility] MCV 94.1 80.0 - 98.0 fL 06/15/2023 8:41 AM [facility] MCH 31.8 26.7 - 33.6 pg 06/15/2023 8:41 AM [facility] MCHC 33.8 31.7 - 36.3 g/dL 06/15/2023 8:41 AM [facility] RDW-CV 13.7 11.3 - 14.8 % 06/15/2023 8:41 AM [facility] Platelet Count 116(L) 150 - 420 x10E9/L 06/15/2023 8:41 AM [facility] MPV 06/15/2023 8:41 AM [employer] [facility] Comment:Unable to report Blood BLOOD SPECIMEN / Unknown Lab Venipuncture / Unknown 06/15/2023 6:32 AM [employer] 06/15/2023 6:52 AM [employer] Gaurav Nogueira MD LAB - HEMATOLOGY ORDERABLES Performing Organization Address City/[facility]/ZIP Co de Phone Number [address] [address], [facility] [phone] * VANCOMYCIN LEVEL PEAK (06/15/2023 6:32 AM [employer]) Vancomycin Peak 36.7 25.0 - 40.0 ug/mL 06/15/2023 7:12 AM [facility] Blood BLOOD SPECIMEN / Unknown Lab Venipuncture / Unknown 06/15/2023 6:32 AM [employer] 06/15/2023 6:49 AM [employer] Narrative [facility] - 06/15/2023 7:12 AM [employer]NAGEMENT See institution protocol. Data does not support the use of vancomycin peak concentration for efficacy. Gaurav Nogueira MD LAB - CHEMISTRY ORDERABLES Performing Organization Address [facility] Co de Phone Number [address] [address], [facility] [phone] * (ABNORMAL) PHOSPHORUS BLOOD (06/14/2023 7:45 AM [employer]) Phosphorus 2.3(L) 2.8 - 5.1 mg/dL 06/14/2023 8:28 AM [employer] [facility] Blood BLOOD SPECIMEN / Unknown Lab Venipuncture / Unknown 06/14/2023 7:45 AM [employer] 06/14/2023 7:56 AM [employer] Gaurav Nogueira MD LAB - CHEMISTRY ORDERABLES Performing Organization Address City/[facility]/ZIP Co de Phone Number [address] [address], [facility] [phone] * MAGNESIUM BLOOD (06/14/2023 7:45 AM PROF[employer]GEMENT) Magnesium 2.0 1.6 - 2.6 mg/dL 06/14/2023 8:28 AM [facility] Blood BLOOD SPECIMEN / Unknown Lab Venipuncture / Unknown 06/14/2023 7:45 AM [employer] 06/14/2023 7:56 AM [employer] Gaurav Nogueira MD LAB - CHEMISTRY ORDERABLES Performing Organization Address [facility] Co de Phone Number [address] [address], [facility] [phone] * (ABNORMAL) COMPREHENSIVE METABOLIC PANEL (06/14/2023 7:45 AM [employer]) BUN 8 7 - 26 mg/dL 06/14/2023 8:28 AM [facility] Creatinine 0.45(L) 0.71 - 1.16 mg/dL 06/14/2023 8:28 AM [facility] Sodium 144 136 - 145 mmol/L 06/14/2023 8:28 AM [facility] Potassium 4.9(H) 3.5 - 4.5 mmol/L 06/14/2023 8:28 AM [facility] Chloride 110(H) 98 - 107 mmol/L 06/14/2023 8:28 AM [facility] CO2 24 22 - 29 mmol/L 06/14/2023 8:28 AM [facility] Glucose 96 70 - 115 mg/dL 06/14/2023 8:28 AM [facility] Calcium 9.3 8.4 - 10.2 mg/dL 06/14/2023 8:28 AM [facility] Protein Total 6.9 6.0 - 8.3 g/dL 06/14/2023 8:28 AM [facility] Albumin 2.7(L) 3.4 - 5.0 g/dL 06/14/2023 8:28 AM [facility] Bilirubin Total 0.3 0.2 - 1.2 mg/dL 06/14/2023 8:28 AM [facility] Alkaline Phosphatase 77 40 - 150 U/L 06/14/2023 8:28 AM [facility] ALT 14 5 - 55 U/L 06/14/2023 8:28 AM [facility] AST 23 5 - 34 U/L 06/14/2023 8:28 AM [facility] Anion Gap 10 6 - 16 06/14/2023 8:28 AM [facility] BUN/Creatinine Ratio 18 7 - 23 06/14/2023 8:28 AM [facility] Osmolality Calculated 296(H) 275 - 295 mOsm/kg 06/14/2023 8:28 AM [facility] Albumin/Globulin Ratio 0.6(L) 1.1 - 2.3 06/14/2023 8:28 AM [facility] eGFR by CKD-EPI >90 >=90 mL/min/1.7 3 m2 06/14/2023 8:28 AM [facility] Blood BLOOD SPECIMEN / Unknown Lab Venipuncture / Unknown 06/14/2023 7:45 AM [employer] 06/14/2023 7:56 AM [facility] Gaurav Nogueira MD LAB - CHEMISTRY ORDERABLES [facility] [address] [place] [address], [facility] [phone] * (ABNORMAL) CBC W AUTO DIFFERENTIAL (06/14/2023 7:45 AM [facility]) WBC 5.1 4.0 - 10.7 x10E9/L 06/14/2023 8:33 AM [facility] RBC Count 4.16(L) 4.30 - 5.80 x10E12/L 06/14/2023 8:33 AM [facility] Hemoglobin 13.3 13.3 - 17.5 g/dL 06/14/2023 8:33 AM [facility] Hematocrit 39.9 38.7 - 51.1 % 06/14/2023 8:33 AM [facility] MCV 95.9 80.0 - 98.0 fL 06/14/2023 8:33 AM [facility] MCH 32.0 26.7 - 33.6 pg 06/14/2023 8:33 AM [facility] MCHC 33.3 31.7 - 36.3 g/dL 06/14/2023 8:33 AM [facility] RDW-CV 13.8 11.3 - 14.8 % 06/14/2023 8:33 AM [facility] Platelet Count 72(L) 150 - 420 x10E9/L 06/14/2023 8:33 AM [facility] MPV 06/14/2023 8:33 AM [facility] Comment:Unable to report Neutrophil % 49.3 41.0 - 74.0 % 06/14/2023 8:33 AM [facility] Lymphocyte % 31.5 17.0 - 47.0 % 06/14/2023 8:33 AM [facility] Monocyte % 13.1(H) 3.0 - 11.0 % 06/14/2023 8:33 AM [facility] Eosinophil % 5.7 0.0 - 7.0 % 06/14/2023 8:33 AM [facility] Basophil % 0.2 0.0 - 1.6 % 06/14/2023 8:33 AM [facility] Immature Granulocytes % 0.2 0.0 - 1.0 % 06/14/2023 8:33 AM [facility] Neutrophil Absolute 2.52 1.60 - 7.50 x10E9/L 06/14/2023 8:33 AM [facility] Lymphocyte Absolute 1.61 1.00 - 4.40 x10E9/L 06/14/2023 8:33 AM [facility] Monocyte Absolute 0.67 0.15 - 1.00 x10E9/L 06/14/2023 8:33 AM [facility] Eosinophil Absolute 0.29 0.00 - 0.60 x10E9/L 06/14/2023 8:33 AM [facility] Basophil Absolute 0.01 0.00 - 0.13 x10E9/L 06/14/2023 8:33 AM [facility] Blood BLOOD SPECIMEN / Unknown Lab Venipuncture / Unknown 06/14/2023 7:45 AM [employer] 06/14/2023 7:57 AM [facility] Gaurav Nogueira MD LAB - HEMATOLOGY ORDERABLES Performing Organization Address City/[facility]/ZIP Co de Phone Number [facility] [address] [place] [address], [facility] [phone] * CARDIAC EKG ORDER (06/13/2023 11:50 AM [employer]) Narrative 06/13/2023 11:50 AM [employer] Ordered by an unspecified provider. 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 Blood PERIPHERAL BLOOD / Unknown Lab Venipuncture / Unknown 06/13/2023 8:47 AM [employer] 06/13/2023 8:50 AM [employer] Gaurav Nogueira MD LAB - MICROBIOLO GY ORDERABLES Performing Organization Address [facility] Co de Phone Number [facility] [address] [place] [address], [facility] [phone] * CULTURE BLOOD (06/13/2023 8:46 AM [employer]) Culture No growth day 5 JELLY 06/18/2023 10:30 AM PROFESSOR [employer] [facility] Blood PERIPHERAL BLOOD / Unknown Lab Venipuncture / Unknown 06/13/2023 8:46 AM [employer] 06/13/2023 8:50 AM [employer] Gaurva Nogueira MD LAB - MICROBIOLO GY ORDERABLES Performing Organization Address [facility]/ZIP Co de Phone Number [facility] [address] [place] [address], [facility] [phone] * (ABNORMAL) VANCOMYCIN LEVEL PEAK (06/13/2023 8:45 AM [employer]) Vancomycin Peak 14.1(L) 25.0 - 40.0 ug/mL 06/13/2023 9:35 AM PROF[employer] MANAGEMENT [facility] Blood BLOOD SPECIMEN / Unknown Lab Venipuncture / Unknown 06/13/2023 8:45 AM [employer] 06/13/2023 8:50 AM PROF[employer]NAGEMENT Narrative [facility] - 06/13/2023 9:35 AM PROF[employer]NAGEMENT See institution protocol. Data does not support the use of vancomycin peak concentration for efficacy. Gaurav Nogueira MD LAB - CHEMISTRY ORDERABLES Performing Organization Address City/[facility]/ZIP Co de Phone Number [address] [address], [facility] [phone] * (ABNORMAL) PHOSPHORUS BLOOD (06/13/2023 5:54 AM [employer]) Phosphorus 1.8(L) 2.8 - 5.1 mg/dL 06/13/2023 7:00 AM PROF[employer] [facility] Blood BLOOD SPECIMEN / Unknown Lab Venipuncture / Unknown 06/13/2023 5:54 AM [employer] 06/13/2023 6:36 AM [employer] Gaurav Nogueira MD LAB - CHEMISTRY ORDERABLES Performing Organization Address [facility]/ZIP Co de Phone Number [address] [address], [facility] [phone] * MAGNESIUM BLOOD (06/13/2023 5:54 AM PROF[employer]) Magnesium 1.7 1.6 - 2.6 mg/dL 06/13/2023 7:00 AM [employer] [facility] Blood BLOOD SPECIMEN / Unknown Lab Venipuncture / Unknown 06/13/2023 5:54 AM [employer] 06/13/2023 6:36 AM [employer] Gaurav Nogueira MD LAB - CHEMISTRY ORDERABLES Performing Organization Address City/[facility]/ZIP Co de Phone Number [address] [address], [facility] [phone] * (ABNORMAL) COMPREHENSIVE METABOLIC PANEL (06/13/2023 5:54 AM [employer]) BUN 7 7 - 26 mg/dL 06/13/2023 7:00 AM [employer] [facility] Creatinine 0.47(L) 0.71 - 1.16 mg/dL 06/13/2023 7:00 AM [facility] Sodium 140 136 - 145 mmol/L 06/13/2023 7:00 AM [facility] Potassium 4.7(H) 3.5 - 4.5 mmol/L 06/13/2023 7:00 AM [facility] Chloride 109(H) 98 - 107 mmol/L 06/13/2023 7:00 AM [facility] CO2 24 22 - 29 mmol/L 06/13/2023 7:00 AM [facility] Glucose 106 70 - 115 mg/dL 06/13/2023 7:00 AM [facility] Calcium 8.7 8.4 - 10.2 mg/dL 06/13/2023 7:00 AM [facility] Protein Total 6.3 6.0 - 8.3 g/dL 06/13/2023 7:00 AM [facility] Albumin 2.5(L) 3.4 - 5.0 g/dL 06/13/2023 7:00 AM [facility] Bilirubin Total 0.3 0.2 - 1.2 mg/dL 06/13/2023 7:00 AM [facility] Alkaline Phosphatase 69 40 - 150 U/L 06/13/2023 7:00 AM [facility] ALT 11 5 - 55 U/L 06/13/2023 7:00 AM [facility] AST 20 5 - 34 U/L 06/13/2023 7:00 AM [facility] Anion Gap 7 6 - 16 06/13/2023 7:00 AM [facility] BUN/Creatinine Ratio 15 7 - 23 06/13/2023 7:00 AM [facility] Osmolality Calculated 288 275 - 295 mOsm/kg 06/13/2023 7:00 AM [facility] Albumin/Globulin Ratio 0.7(L) 1.1 - 2.3 06/13/2023 7:00 AM [facility] eGFR by CKD-EPI >90 >=90 mL/min/1.7 3 m2 06/13/2023 7:00 AM [facility] Blood BLOOD SPECIMEN / Unknown Lab Venipuncture / Unknown 06/13/2023 5:54 AM [employer] 06/13/2023 6:36 AM [employer] Gaurav Nogueira MD LAB - CHEMISTRY ORDERABLES [facility] [address] [place] [address], [facility] [phone] * (ABNORMAL) CBC W AUTO DIFFERENTIAL (06/13/2023 5:53 AM [facility]) WBC 4.4 4.0 - 10.7 x10E9/L 06/13/2023 8:59 AM [facility] RBC Count 3.73(L) 4.30 - 5.80 x10E12/L 06/13/2023 8:59 AM [facility] Hemoglobin 11.8(L) 13.3 - 17.5 g/dL 06/13/2023 8:59 AM [facility] Hematocrit 36.6(L) 38.7 - 51.1 % 06/13/2023 8:59 AM [facility] MCV 98.1(H) 80.0 - 98.0 fL 06/13/2023 8:59 AM [facility] MCH 31.6 26.7 - 33.6 pg 06/13/2023 8:59 AM [facility] MCHC 32.2 31.7 - 36.3 g/dL 06/13/2023 8:59 AM [facility] RDW-CV 13.8 11.3 - 14.8 % 06/13/2023 8:59 AM [facility] Platelet Count 06/13/2023 8:59 AM [facility] Comment:Platelets clumped on slide but appears decreased. Recommend repeat with a sodium citrate blue top tube. Neutrophil % 54.4 41.0 - 74.0 % 06/13/2023 8:59 AM [facility] Lymphocyte % 29.7 17.0 - 47.0 % 06/13/2023 8:59 AM [facility] Monocyte % 13.2(H) 3.0 - 11.0 % 06/13/2023 8:59 AM [facility] Eosinophil % 2.5 0.0 - 7.0 % 06/13/2023 8:59 AM [facility] Basophil % 0.0 0.0 - 1.6 % 06/13/2023 8:59 AM [facility] Immature Granulocytes % 0.2 0.0 - 1.0 % 06/13/2023 8:59 AM [facility] Neutrophil Absolute 2.40 1.60 - 7.50 x10E9/L 06/13/2023 8:59 AM [facility] Lymphocyte Absolute 1.31 1.00 - 4.40 x10E9/L 06/13/2023 8:59 AM [facility] Monocyte Absolute 0.58 0.15 - 1.00 x10E9/L 06/13/2023 8:59 AM [facility] Eosinophil Absolute 0.11 0.00 - 0.60 x10E9/L 06/13/2023 8:59 AM [facility] Basophil Absolute 0.00 0.00 - 0.13 x10E9/L 06/13/2023 8:59 AM [facility] Blood BLOOD SPECIMEN / Unknown Lab Venipuncture / Unknown 06/13/2023 5:53 AM [employer] 06/13/2023 6:37 AM [employer] Gaurav Nogueira MD LAB - HEMATOLOGY ORDERABLES [address] [address], [facility] [phone] * (ABNORMAL) PHOSPHORUS BLOOD (06/12/2023 5:14 PM [employer]) Phosphorus 1.9(L) 2.8 - 5.1 mg/dL 06/12/2023 6:11 PM [employer] [facility] Blood BLOOD SPECIMEN / Unknown Lab Venipuncture / Unknown 06/12/2023 5:14 PM [employer] 06/12/2023 5:36 PM [employer] Gaurav Nogueira MD LAB - CHEMISTRY ORDERABLES [address] [address], [place] [phone] * MAGNESIUM BLOOD (06/12/2023 5:14 PM [employer]) Pathologist [facility] [place] Magnesium 1.7 1.6 - 2.6 mg/dL 06/12/2023 6:11 PM [facility] Blood BLOOD SPECIMEN / Unknown Lab Venipuncture / Unknown 06/12/2023 5:14 PM [employer] 06/12/2023 5:36 PM [employer] Gaurav Nogueira MD LAB - CHEMISTRY ORDERABLES [facility] [address] [place] [address], [facility] [phone] * (ABNORMAL) COMPREHENSIVE METABOLIC PANEL (06/12/2023 5:14 PM [employer]NAG[employer]) Pathologist [facility] [place] BUN 11 7 - 26 mg/dL 06/12/2023 6:11 PM [facility] Creatinine 0.45(L) 0.71 - 1.16 mg/dL 06/12/2023 6:11 PM [facility] Sodium 140 136 - 145 mmol/L 06/12/2023 6:11 PM [facility] Potassium 4.3 3.5 - 4.5 mmol/L 06/12/2023 6:11 PM [facility] Chloride 109(H) 98 - 107 mmol/L 06/12/2023 6:11 PM [facility] CO2 24 22 - 29 mmol/L 06/12/2023 6:11 PM [facility] Glucose 113 70 - 115 mg/dL 06/12/2023 6:11 PM [facility] Calcium 9.2 8.4 - 10.2 mg/dL 06/12/2023 6:11 PM [facility] Protein Total 6.5 6.0 - 8.3 g/dL 06/12/2023 6:11 PM [facility] Albumin 2.5(L) 3.4 - 5.0 g/dL 06/12/2023 6:11 PM [facility] Bilirubin Total 0.2 0.2 - 1.2 mg/dL 06/12/2023 6:11 PM [facility] Alkaline Phosphatase 70 40 - 150 U/L 06/12/2023 6:11 PM [facility] ALT 11 5 - 55 U/L 06/12/2023 6:11 PM [facility] AST 19 5 - 34 U/L 06/12/2023 6:11 PM [facility] Anion Gap 7 6 - 16 06/12/2023 6:11 PM [facility] BUN/Creatinine Ratio 24(H) 7 - 23 06/12/2023 6:11 PM [facility] Osmolality Calculated 290 275 - 295 mOsm/kg 06/12/2023 6:11 PM [facility] Albumin/Globulin Ratio 0.6(L) 1.1 - 2.3 06/12/2023 6:11 PM [facility] eGFR by CKD-EPI >90 >=90 mL/min/1.7 3 m2 06/12/2023 6:11 PM [facility] Blood BLOOD SPECIMEN / Unknown Lab Venipuncture / Unknown 06/12/2023 5:14 PM [employer] 06/12/2023 5:36 PM [facility] Gaurav Nogueira MD LAB - CHEMISTRY ORDERABLES [facility] [address] [place] [id number], [facility] [phone] * (ABNORMAL) CBC W AUTO DIFFERENTIAL (06/12/2023 5:14 PM [employer]) WBC 5.5 4.0 - 10.7 x10E9/L 06/12/2023 5:54 PM [facility] RBC Count 3.93(L) 4.30 - 5.80 x10E12/L 06/12/2023 5:54 PM [facility] Hemoglobin 12.7(L) 13.3 - 17.5 g/dL 06/12/2023 5:54 PM [facility] Hematocrit 37.1(L) 38.7 - 51.1 % 06/12/2023 5:54 PM [facility] MCV 94.4 80.0 - 98.0 fL 06/12/2023 5:54 PM [facility] MCH 32.3 26.7 - 33.6 pg 06/12/2023 5:54 PM [facility] MCHC 34.2 31.7 - 36.3 g/dL 06/12/2023 5:54 PM [facility] RDW-CV 13.8 11.3 - 14.8 % 06/12/2023 5:54 PM [facility] Platelet Count 79(L) 150 - 420 x10E9/L 06/12/2023 5:54 PM [facility] MPV 06/12/2023 5:54 PM [facility] Comment:Unable to report Neutrophil % 56.8 41.0 - 74.0 % 06/12/2023 5:54 PM [facility] Lymphocyte % 26.5 17.0 - 47.0 % 06/12/2023 5:54 PM [facility] Monocyte % 13.4(H) 3.0 - 11.0 % 06/12/2023 5:54 PM [facility] Eosinophil % 2.7 0.0 - 7.0 % 06/12/2023 5:54 PM [facility] Basophil % 0.4 0.0 - 1.6 % 06/12/2023 5:54 PM [facility] Immature Granulocytes % 0.2 0.0 - 1.0 % 06/12/2023 5:54 PM [facility] Neutrophil Absolute 3.13 1.60 - 7.50 x10E9/L 06/12/2023 5:54 PM [facility] Lymphocyte Absolute 1.46 1.00 - 4.40 x10E9/L 06/12/2023 5:54 PM [facility] Monocyte Absolute 0.74 0.15 - 1.00 x10E9/L 06/12/2023 5:54 PM [facility] Eosinophil Absolute 0.15 0.00 - 0.60 x10E9/L 06/12/2023 5:54 PM [facility] Basophil Absolute 0.02 0.00 - 0.13 x10E9/L 06/12/2023 5:54 PM [facility] Blood BLOOD SPECIMEN / Unknown Lab Venipuncture / Unknown 06/12/2023 5:14 PM [employer] 06/12/2023 5:36 PM [employer] Gaurav Nogueira MD LAB - HEMATOLOGY ORDERABLES [facility] [address] [place] [address], [place] [phone] * CULTURE BLOOD (06/11/2023 5:54 PM PROFESSOR OF SPORT MANAGEMENT) Pathologist [facility] [place] Culture No growth day 5 JELLY 06/16/2023 11:01 PM PROFESSOR OF SPORT MANAGEMENT [facility] Blood PERIPHERAL BLOOD / Unknown Venipuncture / Unknown 06/11/2023 5:54 PM PROFESSOR OF SPORT MANAGEMENT 06/11/2023 6:05 PM PROFESSOR OF SPORT MANAGEMENT Gaurav Nogueira MD LAB - MICROBIOLO GY ORDERABLES Performing Organization Address [facility]/ZIP Co de Phone Number [facility] [address] [place] [address], [facility] [phone] * (ABNORMAL) BCID PANEL (06/11/2023 5:46 PM PROFESSOR OF SPORT MANAGEMENT) Staphylococcus species Detected (A) Not detected 06/13/2023 12:20 AM PROFESSOR OF SPORT MANAGEMENT [facility] Comment:Staphylococcus speci es (not S. aureus, S. lugdunensis, or S. epidermidis). Blood PERIPHERAL BLOOD / Unknown Venipuncture / Unknown 06/11/2023 5:46 PM PROFESSOR OF SPORT MANAGEMENT 06/11/2023 6:05 PM PROFESSOR OF SPORT MANAGEMENT Narrative [facility] - 06/13/2023 12:20 AM PROFESSOR OF SPORT MANAGEMENT Blood Culture ID Panel performed by Nicholas Haddox RecordsArray multiplex PCR. Test Panel includes: Antimicrobial Resistance Genes: Mec A/C and MREJ (methicillin-resistance gene-MRSA) and van A/B (vancomycin-resistance gene). Gram Positive Bacteria: Enterococcus faecalis, Enterococcus faecium, Staphylococcus (genus), Staphylococcus aureus, Staphylococcus epidermidis, Staphylococcus lugdunensis, Streptococcus (genus), Streptococcus agalactiae (Group B), Streptococcus pneumoniae, Streptococcus pyogenes (Group A). Gaurav Nogueira MD LAB - MICROBIOLO GY ORDERABLES Performing Organization Address City/[facility] Co de Phone Number [facility] [address] [place] [address], [facility] [phone] * (ABNORMAL) CULTURE BLOOD (06/11/2023 5:46 PM PROFESSOR OF SPORT MANAGEMENT) Culture Growth of Staphylococcus pettenkoferi(AA) JELLY 06/17/2023 2:05 PM PROFESSOR OF SPORT MANAGEMENT [facility] Comment:Possible contaminant unless multiple cultures are positive for the same isolate. Gram Stain Gram-positive cocci(AA) 06/17/2023 2:05 PM PROFESSOR OF SPORT MANAGEMENT [facility] Blood PERIPHERAL BLOOD / Unknown Venipuncture / Unknown 06/11/2023 5:46 PM PROFESSOR OF SPORT MANAGEMENT 06/11/2023 6:05 PM PROFESSOR OF SPORT MANAGEMENT Narrative [facility] - 06/17/2023 2:05 PM PROFESSOR OF SPORT MANAGEMENT Positive at 22 Hours 52 Minutes Gaurav Nogueira MD LAB - MICROBIOLO GY ORDERABLES Performing Organization Address [facility] Co de Phone Number [facility] [address] [place] [address], [facility] [phone] * CULTURE BLOOD (06/11/2023 3:52 PM PROFESSOR OF SPORT MANAGEMENT) Culture No growth day 5 JELLY 06/16/2023 7:31 PM PROFESSOR OF SPORT MANAGEMENT [facility] Blood PERIPHERAL BLOOD / Unknown Venipuncture / Unknown 06/11/2023 3:52 PM PROFESSOR OF SPORT MANAGEMENT 06/11/2023 3:56 PM PROFESSOR OF SPORT MANAGEMENT Gaurav Nogueira MD LAB - MICROBIOLO GY ORDERABLES Performing Organization Address [facility] Co de Phone Number [facility] [address] [place] [address], [facility] [phone] * (ABNORMAL) CULTURE URINE (06/11/2023 2:42 PM PROFESSOR OF SPORT MANAGEMENT) Culture Urine >100,000 CFU/mL Yeast(A) JELLY 06/13/2023 5:56 AM PROFESSOR OF SPORT MANAGEMENT [facility] Comment:No further workup pe rformed Urine URINE SPECIMEN OBTAINED BY SINGLE CATHETERIZATION OF URINARY BLADDER / Unknown Collection / Unknown 06/11/2023 2:42 PM PROFESSOR OF SPORT MANAGEMENT 06/11/2023 2:53 PM PROFESSOR OF SPORT MANAGEMENT Gaurav Nogueira MD LAB - MICROBIOLO GY ORDERABLES Performing Organization Address City/[facility]/ZIP Co de Phone Number [facility] [address] [place] [address], [facility] [phone] * (ABNORMAL) MRSA DNA PCR (06/11/2023 2:42 PM PROFESSOR OF SPORT MANAGEMENT) Pathologist [facility] [place] MRSA DNA by PCR Detected( A) Not detected 06/11/2023 7:32 PM PROFESSOR OF SPORT MANAGEMENT [facility] Microbiology SPECIMEN FROM NASAL FOSSAE / Unknown Collection / Unknown 06/11/2023 2:42 PM PROFESSOR OF SPORT MANAGEMENT 06/11/2023 2:52 PM PROFESSOR OF SPORT MANAGEMENT Narrative 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 Gaurav Nogueira MD LAB - MICROBIOLO GY ORDERABLES Performing Organization Address [facility] Co de Phone Number [facility] [address] [place] [address], [facility] [phone] * (ABNORMAL) URINALYSIS REFLEX TO MICROSCOPIC NO CULTURE (06/11/2023 2:22 PM PROFESSOR OF SPORT MANAGEMENT) Color UA Olivia(A) Straw, Yellow 06/11/2023 3:15 PM [facility] Clarity UA Slt Cloudy(A) Clear 06/11/2023 3:15 PM [facility] Specific [place] UA 1.030 1.005 - 1.030 06/11/2023 3:15 PM [facility] pH UA 5.0 5.0 - 8.0 pH 06/11/2023 3:15 PM [facility] Protein UA 1+(A) Negative 06/11/2023 3:15 PM [facility] Glucose UA Negative Negative 06/11/2023 3:15 PM [facility] Ketone UA Trace(A) Negative 06/11/2023 3:15 PM [facility] Bilirubin UA Negative Negative 06/11/2023 3:15 PM [facility] Blood UA Negative Negative 06/11/2023 3:15 PM [facility] Nitrite UA Negative Negative 06/11/2023 3:15 PM [facility] Leukocyte Esterase 2+(A) Negative 06/11/2023 3:15 PM [facility] Urobilinogen UA Negative Negative mg/dL 06/11/2023 3:15 PM [facility] RBC UA 6-10(A) None Seen, 0-2, 3-5 /HPF 06/11/2023 3:15 PM [facility] WBC UA >100(A) None Seen, 0-5 /HPF 06/11/2023 3:15 PM [facility] Yeast Budding UA Many(A) None /HPF 06/11/19 24 3:15 PM [facility] Yeast Hyphenation UA Rare(A) None /HPF 06/11/2023 3:15 PM [facility] Squamous Epithelial Cells UA None Seen None Seen, 0-2, 3-5 /HPF 06/11/2023 3:15 PM [facility] Mucus UA 1+ /LPF 06/11/2023 3:15 PM [facility] Urine URINE SPECIMEN OBTAINED BY SINGLE CATHETERIZATION OF URINARY BLADDER / Unknown Collection / Unknown 06/11/2023 2:22 PM PROF[employer]OR [employer] MANAGEMENT 06/11/2023 2:52 PM PROFESSOR OF SPORT MANAGEMENT Narrative [facility] - 06/11/2023 3:15 PM PROFESSOR OF SPORT MANAGEMENT Gaurav Nogueira MD LAB - URINALYSIS ORDERABLES Performing Organization Address [facility] de Phone Number [facility] [address] [place] [phone], [facility] [phone] * SUSCEPTIBILITY NOT OTHERWISE SPECIFIED (06/11/2023 2:19 PM PROFESSOR OF SPORT MANAGEMENT) Prelim Report SEE NOTE 06/19/2023 11:05 AM PROFESSOR OF SPORT MANAGEMENT [employer] ([facility]) Comment: Specimen received and in progress. SMICCefiderocol ? 0.25 Suscept Performed By: [facility] [address] [id number] Kiln Remover: Power Milian MD, PhD CLIA Number: [id number] Final Report SEE NOTE 06/19/2023 11:05 AM PROFESSOR OF SPORT MANAGEMENT [employer] ([facility]) Comment: Pseudomonas aeruginosa Organism identified by client SMICCefiderocol ? 0.25 Suscept Performed By: [facility] [address] [place] [address] Kiln Remover: Power Milian MD, PhD CLIA Number: [id number] Microbiology LOWER RESPIRATORY FLUID SPECIMEN / Unknown Collection / Unknown 06/11/2023 2:19 PM PROFESSOR OF SPORT MANAGEMENT 06/11/2023 2:52 PM PROFESSOR OF SPORT MANAGEMENT Gaurav Nogueira MD LAB - MICROBIOLO GY ORDERABLES [facility] ([facility]) [address] * (ABNORMAL) CULTURE SPUTUM+GRAM STAIN (06/11/2023 2:19 PM PROFESSOR OF SPORT MANAGEMENT) Culture Moderate Pseudomonas aeruginosa (mucoid)(A) 06/20/2023 9:48 AM PROFESSOR OF SPORT MANAGEMENT [facility] Comment:Isolate is multi franchesca g resistant organism (MDRO). Culture Moderate Staphylococcus aureus methicillin-resista nt (MRSA)(A) JELLY 06/20/2023 9:48 AM PROFESSOR OF SPORT MANAGEMENT [facility] Comment:Staphylococcus aureu s methicillin-resistant (MRSA) detected by penicillin binding protein immunoassay. Contact precautions required. Conventional antibiotic susceptibility testing to follow. Culture Rare normal oropharyngeal heidi 06/20/2023 9:48 AM PROFESSOR OF SPORT MANAGEMENT [facility] Gram Stain <10 per low power field Squamous epithelial cells 06/20/2023 9:48 AM PROFESSOR OF SPORT MANAGEMENT [facility] Gram Stain >= 25 per low power field Polymorphonuclear cells 06/20/2023 9:48 AM PROFESSOR OF SPORT MANAGEMENT [facility] Gram Stain Light Gram-positive cocci 06/20/2023 9:48 AM PROFESSOR OF SPORT MANAGEMENT [facility] Microbiology LOWER RESPIRATORY FLUID SPECIMEN / Unknown Collection / Unknown 06/11/2023 2:19 PM PROFESSOR OF SPORT MANAGEMENT 06/11/2023 2:52 PM PROFESSOR OF SPORT MANAGEMENT Narrative [facility] - 06/20/2023 9:48 AM PROFESSOR OF SPORT MANAGEMENT This isolate is a multidrug resistant organism [...] Nogueira MD LAB - MICROBIOLO GY ORDERABLES [facility] [address] [place] [address], [facility] [phone] * CBC W/O DIFFERENTIAL (06/10/2023 5:14 AM PROFESSOR OF SPORT MANAGEMENT) [facility] WBC 6.7 4.0 - 10.7 x10E9/L 06/10/2023 6:06 AM [facility] RBC Count 4.39 4.30 - 5.80 x10E12/L 06/10/2023 6:06 AM [facility] Hemoglobin 14.2 13.3 - 17.5 g/dL 06/10/2023 6:06 AM [facility] Hematocrit 40.9 38.7 - 51.1 % 06/10/2023 6:06 AM [facility] MCV 93.2 80.0 - 98.0 fL 06/10/2023 6:06 AM [facility] MCH 32.3 26.7 - 33.6 pg 06/10/2023 6:06 AM [facility] MCHC 34.7 31.7 - 36.3 g/dL 06/10/2023 6:06 AM [facility] RDW-CV 14.7 11.3 - 14.8 % 06/10/2023 6:06 AM [facility] Platelet Count 06/10/2023 6:06 AM [facility] Comment:Automated platelet c ount is inaccurate due to clumping, platelet estimate from smear appears decreased. Blood BLOOD SPECIMEN / Unknown Venipuncture / Unknown 06/10/2023 5:14 AM PROFESSOR OF SPORT MANAGEMENT 06/10/2023 5:28 AM PROFESSOR OF SPORT MANAGEMENT Neha Palomino MD LAB - HEMATOLOGY ORD ERABLES Performing Organization Address City/State/[facility] Co de Phone Number [address] [phone] [phone] * LACTIC ACID BLOOD REFLEX TO REPEAT (06/09/2023 10:53 PM PROFESSOR OF SPORT MANAGEMENT) [facility] Lactic Acid-Stat 2.0 <=2.0 mmol/L 06/09/2023 11:27 PM [facility] Blood BLOOD SPECIMEN / Unknown Venipuncture / Unknown 06/09/2023 10:53 PM PROFESSOR OF SPORT MANAGEMENT 06/09/2023 11:02 PM PROFESSOR OF SPORT MANAGEMENT Ryanne Hanson MD LAB - CHEMISTRY ORDE R[address] [place] [address], [facility] [phone] * CT CHEST ABDOMEN PELVIS W CONT (06/09/2023 10:45 PM PROFESSOR OF SPORT MANAGEMENT) Anatomical Region Laterality Modality Chest, Abdomen, Pelvis Computed Tomography 06/09/2023 11:1 3 PM PROFESSOR OF SPORT MANAGEMENT Impressions 06/10/2023 7:31 AM PROFESSOR OF SPORT MANAGEMENT Impression: 1.Bilateral lower lob atelectasis as well [...] abdomen and pelvis. > Dictated by Justin Burrell MD (vice president fixed income). I, Bebo Kuo MD have personally reviewed and interpreted this examination/study. > Interpreting Provider: Bebo Kuo MD on 06/10/2023 7:31 AM Narrative 06/10/2023 7:31 AM PROFESSOR OF SPORT MANAGEMENT PROCEDURE: ??CT CHEST ABDOMEN PELVIS W CONT, DATE/TIME OF EXAM: ??06/09/2023 10:46 PM, LOCATION ??[facility] INDICATION: R79.89: Elevated lactic acid level J90: Pleural effusion ADDITIONAL CLINICAL INFORMATION: Ordering Provider Reason For Exam: ??pleural effusion, up trending lactic acid COMPARISON: CT chest abdomen pelvis dated 02/23/2023 TECHNIQUE: CT of the chest, abdomen, and pelvis was performed after the uneventful administration of 100 mL of Isovue 370 intravenous contrast according to standard protocol. Findings: Chest: Evaluation of the chest is limited by motion artifact. Tracheostomy tube terminates in superior trachea. A gastrostomy noted and the tip of the tube is seen in the region of proximal jejunum. Lower Neck and Axillae: Normal. Lungs: Debris is noted in the right lower and mid lobe bronchi. Redemonstration of atelectasis of the right lower lobe and patchy atelectasis in the right middle lobe. There is mild groundglass opacity and bronchial wall thickening in the right upper duct. Redemonstrated segmental atelectasis of the left lower lobe. Findings are again suggestive of aspiration. Small pleural effusions seen in the left side. No pneumothorax is present. Heart and Pericardium: The cardiac chambers are normal in size. No pericardial fluid or thickening is present. Coronary artery calcifications are noted. Subendocardial hypodensity in the left ventricle indicating age indeterminate myocardial infarction. Mediastinum and Almita: No mediastinal hemorrhage is present. No enlarged lymph nodes are present. Thoracic Vasculature: No vascular abnormality is present. Abdomen/pelvis: Liver: Normal. Gallbladder and Bile Ducts: A gallstone is seen. No wall thickening or pericholecystic fluid. Spleen: Normal. Pancreas: Normal. Adrenals: Normal. Kidneys: There are multiple punctate hyperdensities in the bilateral kidneys which may represent nonobstructive calculi versus atherosclerotic calcifications. Bilateral kidneys enhance symmetrically without evidence of hydronephrosis. Gastrointestinal: A percutaneous gastrojejunostomy tube with a balloon in the stomach, again study anterior abdominal wall, and tip of the tube is in the proximal jejunum. Small sized hiatal hernia is present. The stomach and visualized loops of large and small bowel are unremarkable. Normal appendix. Large volume stool is seen throughout the colon. Mesentery/Peritoneum/Retroperitoneum: No free intraperitoneal air. No free fluid in the abdomen or pelvis. Bladder: A Jensen catheter terminates within a decompressed urinary bladder. Reproductive Organs: The prostate is enlarged, measuring 5.5 cm transversely. Abdominal Vasculature: Atherosclerotic calcification of the aorta and its branch vessels. Bones: Chronic fracture deformity of the distal right clavicle as well as degenerative changes of the right shoulder joint is noted. . The visible osseous structures are intact. Degenerative changes are seen in the spine. Soft tissues: Normal. Procedure Note Bebo Kuo MD - 06/10/2023 PROCEDURE: CT CHEST ABDOMEN PELVIS W CONT, DATE/TIME OF EXAM:06/09/2023 10:46 PM, LOCATION [facility] INDICATION: R79.89: Elevated lactic acid level J90: Pleural effusion ADDITIONAL CLINICAL INFORMATION: Ordering Provider Reason For Exam: pleural effusion, up trending lactic acid COMPARISON: CT chest abdomen pelvis dated 02/23/2023 TECHNIQUE: CT of the chest, abdomen, and pelvis was performed after the uneventful administration of 100 mL of Isovue 370 intravenous contrast according to standard protocol. Findings: Chest: Evaluation of the chest is limited by motion artifact. Tracheostomy tube terminates in superior trachea. A gastrostomy notedand the tip of the tube is seen in the region of proximal jejunum. Lower Neck and Axillae: Normal. Lungs: Debris is noted in the right lower and mid lobe bronchi. Redemonstrationof atelectasis of the right lower lobe and patchy atelectasis in the right middle lobe. There is mild groundglass opacity and bronchial wall thickening in the right upper duct. Redemonstrated segmental atelectasisof the left lower lobe. Findings are again suggestive of aspiration. Small pleural effusions seen in the left side. No pneumothorax is present. Heart and Pericardium: The cardiac chambers are normal in size. No pericardial fluid orthickening is present. Coronary artery calcifications are noted. Subendocardial hypodensity in the left ventricle indicating age indeterminatemyocardial infarction. Mediastinum and Almita: No mediastinal hemorrhage is present. No enlarged lymph nodes arepresent. Thoracic Vasculature: No vascular abnormality is present. Abdomen/pelvis: Liver: Normal. Gallbladder and Bile Ducts: A gallstone is seen. No wall thickening or pericholecystic fluid. Spleen: Normal. Pancreas: Normal. Adrenals: Normal. Kidneys: There are multiple punctate hyperdensities in the bilateral kidneyswhich may represent nonobstructive calculi versus atheroscleroticcalcifications. Bilateral kidneys enhance symmetrically without evidence ofhydronephrosis. Gastrointestinal: A percutaneous gastrojejunostomy tube with a balloon in the stomach,again study anterior abdominal wall, and tip of the tube is in the proximal jejunum. Small sized hiatal hernia is present. The stomach andvisualized loops of large and small bowel are unremarkable. Normal appendix. Large volume stool is seen throughout the colon. Mesentery/Peritoneum/Retroperitoneum: No free intraperitoneal air. No free fluid in the abdomen or pelvis. Bladder: A Jensen catheter terminates within a decompressed urinary bladder. Reproductive Organs: The prostate is enlarged, measuring 5.5 cm transversely. Abdominal Vasculature: Atherosclerotic calcification of the aorta and its branch vessels. Bones: Chronic fracture deformity of the distal right clavicle as well as degenerative changes of the right shoulder joint is noted. . The visible osseous structures are intact. Degenerative changes are seen in thespine. Soft tissues: Normal. Impression: 1.Bilateral lower lob atelectasis as well as patchy groundglassopacities in bilateral lung and associated bronchial wall thickening, againfindings are suggestive of aspiration/retained secretion. Small left pleural effusion. 2.A percutaneous gastrojejunostomy tube with a balloon in the stomach, again study anterior abdominal wall, and tip of the tube is in theproximal jejunum. No evidence of inflammatory changes of tube entrance. 3.No evidence of free air or free fluid in the abdomen and pelvis. > Dictated by Justin Burrell MD (vice president fixed income). I, Bebo Kuo MD have personally reviewed and interpreted this examination/study. > Interpreting Provider: Bebo Kuo MD on 47:31 AM Ryanne Hanson MD CT ORDERABLES * CT HEAD WO CONTRAST (06/09/2023 10:45 PM PROFESSOR OF SPORT MANAGEMENT) Anatomical Region Laterality Modality Head Computed Tomogra phy 06/09/2023 10:4 5 PM PROF[employer]OR OF [employer] MANAGEMENT Impressions 06/09/2023 10:59 PM PROFESSOR OF SPORT MANAGEMENT IMPRESSION: 1.No acute intracranial abnormality. 2.Chronic findings as described. > Interpreting Provider: Georgia Lees MD, PhD on 06/09/2023 10:59 PM Narrative 06/09/2023 10:59 PM PROFESSOR OF SPORT MANAGEMENT EXAM: CT HEAD WO CONTRAST, DATE/TIME OF EXAM: 06/09/2023 10:46 PM, LOCATION: [facility] HISTORY: R53.1: Weakness ADDITIONAL CLINICAL INFORMATION: Ordering Provider Reason For Exam: ??Altered. EXAMINATION: CT scan of the head without intravenous contrast TECHNIQUE: CT of the head was performed without intravenous contrast according to standard protocol. CT dose reduction technique was used, including Automated Exposure Control. COMPARISON: Head CT 01/01/2023. FINDINGS: BRAIN PARENCHYMA/VENTRICLES/EXTRA-AXIAL SPACES: No acute hemorrhage, large vascular territory infarct, or mass effect. 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 Unchanged small chronic lacunes of the left cerebellum, left paramedian isabella, thalami, and left basal ganglia. Scattered and confluent white matter hypodensities, which are nonspecific but likely represents the sequela of chronic microangiopathic change. Moderate generalized parenchymal volume loss with ex vacuo dilation of the ventricles. Unchanged ventricular prominence that is disproportionate to sulcal dilation, prominence of the sylvian fissures, and crowding of the sulci at the skull vertex, which are nonspecific findings but may be related to parenchymal volume loss; however, superimposed normal pressure hydrocephalus (NPH) cannot be excluded and this can be correlated clinically. No extra-axial collection. Basal cisterns are patent. EXTRACRANIAL STRUCTURES: No acute or suspicious osseous abnormality. Chronic healed fracture deformity of the left lamina papyracea; otherwise, unremarkable orbits. Re-demonstrated near complete opacification of the right maxillary sinus with mixed density material associated with mucoperiosteal thickening/chronic osteitis of the right posterior maxillary sinus head, which is consistent with chronic sinusitis. Mild mucosal thickening of the ethmoid air cells and [id number] mucosal thickening of the left frontal sinus/frontoethmoidal recess. Trace bubbly mucosal material within the right sphenoid sinus. Evidence of prior right middle turbinectomy. Trace opacification right nasal cavity; otherwise, nasal cavity is clear. Incidentally noted left middle nasal turbinate cory bullosa. Small right and trace left mastoid effusions. Left occipital scalp subcutaneous lesion measuring 1.4 x 0.7 cm in the axial plane (09/22), which favors a benign trichilemmal or sebaceous cyst. Moderate calcific atherosclerosis of the carotid siphons. Small amount of cerumen within the external auditory canals. Procedure Note Georgia Lees MD - 06/09/2023 EXAM: CT HEAD WO CONTRAST, DATE/TIME OF EXAM: 06/09/2023 10:46 PM,LOCATION: [facility] HISTORY: R53.1: Weakness ADDITIONAL CLINICAL INFORMATION: Ordering Provider Reason For Exam: Altered. EXAMINATION: CT scan of the head without intravenous contrast TECHNIQUE: CT of the head was performed without intravenous contrast according to standard protocol. CT dose reduction technique was used, including Automated Exposure Control. COMPARISON: Head CT 01/01/2023. FINDINGS: BRAIN PARENCHYMA/VENTRICLES/EXTRA-AXIAL SPACES: No acute hemorrhage,large vascular territory infarct, or mass effect. 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 Unchanged small chronic lacunes of the left cerebellum, left paramedian isabella, thalami, and left basal ganglia. Scattered andconfluent white matter hypodensities, which are nonspecific but likely representsthe sequela of chronic microangiopathic change. Moderate generalized parenchymal volume loss with ex vacuo dilation of the ventricles. Unchanged ventricular prominence that is disproportionate to sulcal dilation, prominence of the sylvian fissures, and crowding of the sulciat the skull vertex, which are nonspecific findings but may be related to parenchymal volume loss; however, superimposed normal pressure hydrocephalus (NPH) cannot be excluded and this can be correlated clinically. No extra-axial collection. Basal cisterns are patent. EXTRACRANIAL STRUCTURES: No acute or suspicious osseous abnormality. Chronic healed fracture deformity of the left lamina papyracea;otherwise, unremarkable orbits. Re-demonstrated near complete opacification of the right maxillary sinus with mixed density material associated with mucoperiosteal thickening/chronic osteitis of the right posteriormaxillary sinus head, which is consistent with chronic sinusitis. Mild mucosal thickening of the ethmoid air cells and elxd-iv-mkikqeya mucosalthickening of the left frontal sinus/frontoethmoidal recess. Trace bubbly mucosal material within the right sphenoid sinus. Evidence of prior right middle turbinectomy. Trace opacification right nasal cavity; otherwise, nasal cavity is clear. Incidentally noted left middle nasal turbinate cory bullosa. Small right and trace left mastoid effusions. Left occipitalscalp subcutaneous lesion measuring 1.4 x 0.7 cm in the axial plane (09/22),which favors a benign trichilemmal or sebaceous cyst. Moderate calcific atherosclerosis of the carotid siphons. Small amount of cerumen withinthe external auditory canals. IMPRESSION: 1.No acute intracranial abnormality. 2.Chronic findings as described. > Interpreting Provider: Georgia Lees MD, PhD on 06/09/2023 10:59 PM [address]on MD CT ORDERABLES * LACTIC ACID REPEAT REFLEX (06/09/2023 8:17 PM [employer]NAG[employer]) [facility] Lactic Acid Repeat Reflex Order LACTIC ACID REPEAT HAS BEEN ORDERED 06/09/2023 10:30 PM [employer]NAGEMENT [facility] Blood BLOOD SPECIMEN / Unknown Venipuncture / Unknown 06/09/2023 8:17 PM [employer] 06/09/2023 8:58 PM [employer] Ryanne Hanson MD LAB - CHEMISTRY AMRSHAL MEDEROS [address] [address], [facility] [phone] * (ABNORMAL) LACTIC ACID BLOOD REFLEX TO REPEAT (06/09/2023 8:17 PM PROF[employer]NAGEMENT) [facility] Lactic Acid-Stat 3.5(HH) <=2.0 mmol/L 06/09/2023 8:59 PM [employer]NAG[employer] [facility] Blood BLOOD SPECIMEN / Unknown Venipuncture / Unknown 06/09/2023 8:17 PM [employer] 06/09/2023 8:37 PM [employer] Ryanne Hanson MD LAB - CHEMISTRY MARSHAL MEDEROS Performing Organization Address City/[facility]/ZIP Co de Phone Number [address] [address], [place] [phone] * SARS-COV-2 (COVID-19)+INFLU A+B PCR RAPID (06/09/2023 8:15 PM [employer]) [facility] COVID-19 PCR Not detected Not detected 06/09/19 9:19 PM [employer] [facility] Influenza A Rapid BILLY Not Detected Not Detected 06/09/2023 9:19 PM [employer] [facility] Influenza B BILLY Rapid Not Detected Not Detected 06/09/2023 9:19 PM [facility] Microbiology SPECIMEN FROM NASOPHARYNGEAL STRUCTURE / Unknown Collection / Unknown 06/09/2023 8:15 PM [employer] 06/09/2023 8:33 PM [employer] Narrative [facility] - 06/09/2023 9:19 PM [employer] Influenza assay performed by [employer]. [...] acid amplification assay performance was validated by [facility]. This test has been authorized by the [...] this EUA assay are available upon request. Ryanne Hanson MD LAB - MICROBIOLOGY O RDERABLES [facility] [address] [place] [address], [facility] [phone] * (ABNORMAL) BLOOD GASES ART + COOX PANEL (06/09/2023 8:14 PM [employer]) pH Arterial 7.41 7.35 - 7.45 pH 06/09/2023 8:41 PM [facility] pO2 Arterial 82 80 - 100 mmHg 06/09/2023 8:41 PM [facility] pCO2 Arterial 40 35 - 45 mmHg 8:41 PM [facility] HCO3 Arterial 25.4 20.0 - 30.0 mmol/L 06/09/2023 8:41 PM [facility] BE Arterial 0.7 -2.0 - 2.0 mmol/L 06/09/2023 8:41 PM [facility] Oxyhemoglobin Arterial 95.1 % 06/09/2023 8:41 PM [facility] Dexoyhemoglobin (HHB) % 2.1 % 06/09/2023 8:41 PM [facility] Methemoglobin <0.8 0.0 - 2.0 % 06/09/2023 8:41 PM [facility] Carboxyhemoglobin 2.2(H) 0.0 - 2.0 % 2023 8:41 PM [facility] O2 Content Arterial 18.6 Interpret within clinical context ml/dL 06/09/2023 8:41 PM [facility] Hemoglobin by COOX 13.9 12.0 - 17.6 g/dL 06/09/2023 8:41 PM [facility] O2 Saturation Arterial 98 90 - 100 % 06/09/2023 8:41 PM [facility] FI O2 Arterial 35.0 % 06/09/2023 8:41 PM [facility] Blood, arterial ARTERIAL BLOOD SPECIMEN / Unknown Arterial Puncture / Unknown 06/09/2023 8:14 PM [employer] 06/09/2023 8:34 PM [facility] - 06/09/2023 8:41 PM [facility] Carboxyhemoglobin Normal Concentration: Non-smokers: 0-2%; Smokers: 0-9%; Toxic: >20% Ryanne Hanson MD LAB - BLOOD GASES OR DERABLES Performing Organization Address City/State/[facility] Co de Phone Number [address] [address], [facility] [phone] * (ABNORMAL) BLOOD GASES ANA + COOX PANEL (06/09/2023 7:02 PM [employer]) pH Venous 7.27(L) 7.32 - 7.42 pH 06/09/2023 7:12 PM [facility] pO2 Venous 21(L) 35 - 40 mmHg 06/09/2023 7:12 PM [facility] pCO2 Venous 65(H) 40 - 50 mmHg 06/09/2023 7:12 PM [facility] HCO3 Venous 29.8 20 - 30 mmol/L 06/09/2023 7:12 PM [facility] Base Excess Venous 1.3 -2.0 - 2.0 mmol/L 06/09/2023 7:12 PM [facility] Oxyhemoglobin Venous 22.3 % 05/30 7:12 PM [facility] Deoxyhemoglobin (HHB) Venous % 77.1 % 06/09/2023 7:12 PM [facility] Methemoglobin <0.8 0.0 - 2.0 % 06/09/2023 7:12 PM [facility] Carboxyhemoglobin <0.4 0.0 - 2.0 % 2023 7:12 PM [facility] O2 Content Venous 4.2 Interpret within clinical context ml/dL 06/09/2023 7:12 PM [facility] Hemoglobin by COOX 13.2 12.0 - 17.6 g/dL 06/09/2023 7:12 PM [facility] O2 Saturation Venous 22(L) >=70 % 05/30 7:12 PM [facility] FI O2 Mixed Venous 100.0 % 2023 7:12 PM [facility] Blood BLOOD SPECIMEN / Unknown Venipuncture / Unknown 06/09/2023 7:02 PM [employer] 06/09/2023 7:08 PM [facility] - 06/09/2023 7:12 PM [facility] Carboxyhemoglobin Normal Concentration: Non-smokers: 0-2%; Smokers: 0-9%; Toxic: >20% Ryanne Hanson MD LAB - BLOOD GASES OR DERABLES [address] [address], [facility] [phone] * (ABNORMAL) LACTIC ACID BLOOD REFLEX TO REPEAT (06/09/2023 7:02 PM [employer]) Lactic Acid-Stat 4.4(HH) <=2.0 mmol/L 06/09/2023 7:49 PM [facility] Blood BLOOD SPECIMEN / Unknown Venipuncture / Unknown 06/09/2023 7:02 PM [employer] 06/09/2023 7:13 PM [employer] Ryanne Hanson MD LAB - CHEMISTRY MARSHAL MEDEROS [address] [address], [place] [phone] * LACTIC ACID REPEAT REFLEX (06/09/2023 5:03 PM [employer]) Lactic Acid Repeat Reflex Order LACTIC ACID REPEAT HAS BEEN ORDERED 06/09/2023 7:32 PM [employer] [facility] Blood BLOOD SPECIMEN / Unknown Venipuncture / Unknown 06/09/2023 5:03 PM [employer] 06/09/2023 5:37 PM [employer] Ryanne Hanson MD LAB - CHEMISTRY MARSHAL MEDEROS Performing Organization Address [facility]/ZIP Co de Phone Number [address] [address], [place] [phone] * (ABNORMAL) LACTIC ACID BLOOD REFLEX TO REPEAT (06/09/2023 5:03 PM PROF[employer]) Pathologist [facility] Lactic Acid-Stat 3.3(HH) <=2.0 mmol/L 06/09/2023 5:39 PM [employer] [facility] Blood BLOOD SPECIMEN / Unknown Venipuncture / Unknown 06/09/2023 5:03 PM [employer] 06/09/2023 5:10 PM [employer] Ryanne Hanson MD LAB - CHEMISTRY MARSHAL MEDEROS [address] [address], [place] [phone] * (ABNORMAL) BLOOD GASES ANA + COOX PANEL (06/09/2023 5:03 PM [employer]) pH Venous 7.28(L) 7.32 - 7.42 pH 06/09/2023 5:28 PM [facility] pO2 Venous 28(L) 35 - 40 mmHg 06/09/2023 5:28 PM [facility] pCO2 Venous 61(H) 40 - 50 mmHg 06/09/2023 5:28 PM [facility] HCO3 Venous 28.7 20 - 30 mmol/L 06/09/2023 5:28 PM [facility] Base Excess Venous 0.5 -2.0 - 2.0 mmol/L 06/09/2023 5:28 PM [facility] Oxyhemoglobin Venous 35.7 % 05/30 5:28 PM [facility] Deoxyhemoglobin (HHB) Venous % 62.8 % 06/09/2023 5:28 PM [facility] Methemoglobin 0.8 0.0 - 2.0 % 06/09/2023 5:28 PM [facility] Carboxyhemoglobin 0.7 0.0 - 2.0 % 2023 5:28 PM [facility] O2 Content Venous 6.7 Interpret within clinical context ml/dL 06/09/2023 5:28 PM [facility] Hemoglobin by COOX 13.4 12.0 - 17.6 g/dL 06/09/2023 5:28 PM [facility] O2 Saturation Venous 36(L) >=70 % 05/30 5:28 PM [facility] FI O2 Mixed Venous 100.0 % 2023 5:28 PM [facility] Blood BLOOD SPECIMEN / Unknown Venipuncture / Unknown 06/09/2023 5:03 PM [employer] 06/09/2023 5:09 PM [facility] - 06/09/2023 5:28 PM [facility] Carboxyhemoglobin Normal Concentration: Non-smokers: 0-2%; Smokers: 0-9%; Toxic: >20% Ryanne Hanson MD LAB - BLOOD GASES OR DERABLES [facility] [address] [place] [address], [facility] [phone] * LACTIC ACID REPEAT REFLEX (06/09/2023 3:46 PM PROF[employer]GEMENT) Pathologist [facility] Lactic Acid Repeat Reflex Order LACTIC ACID REPEAT HAS BEEN ORDERED 06/09/2023 6:10 PM [employer]NAGEMENT [facility] Blood BLOOD SPECIMEN / Unknown Venipuncture / Unknown 06/09/2023 3:46 PM [employer] 06/09/2023 4:21 PM [employer] Ryanne Hanson MD LAB - CHEMISTRY MARSHAL MEDEROS Performing Organization Address City/[facility]/ZIP Co de Phone Number [address] [address], [facility] [phone] * (ABNORMAL) LACTIC ACID BLOOD REFLEX TO REPEAT (06/09/2023 3:46 PM PROF[employer]NAGEMENT) [facility] Lactic Acid-Stat 3.5(HH) <=2.0 mmol/L 06/09/2023 4:24 PM [employer]NAG[employer] [facility] Blood BLOOD SPECIMEN / Unknown Venipuncture / Unknown 06/09/2023 3:46 PM [employer] 06/09/2023 3:52 PM [employer] Ryanne Hanson MD LAB - CHEMISTRY MARSHAL MEDEROS Performing Organization Address City/[facility]/ZIP Co de Phone Number [address] [address], [facility] [phone] * (ABNORMAL) CULTURE URINE (06/09/2023 3:45 PM PROF[employer]) Pathologist [facility] [place] Culture Urine 10,000-50,000 CFU/mL Yeast(A) JELLY 06/12/2023 5:03 AM PROFESSOR OF [employer]ORT [employer]NAGEMENT [facility] Comment:No further workup pe rformed Culture Urine 1,000-10,000 CFU/mL Pseudomonas aeruginosa(A) JELLY 06/12/2023 5:03 AM PROFESSOR OF [employer]ORT [employer]NAGEMENT [facility] Urine URINE SPECIMEN OBTAINED BY SINGLE CATHETERIZATION OF URINARY BLADDER / Unknown Collection / Unknown 06/09/2023 3:45 PM [employer] 06/09/2023 4:02 PM [employer] Narrative Organism Antibiotic Method Susceptibility Pseudomonas aeruginosa Amikacin JELLY 8 ug/mL: Susceptible Pseudomonas aeruginosa Cefepime JELLY 8 ug/mL: Susceptible Pseudomonas aeruginosa Ceftazidime JELLY 4 ug/mL: Susceptible Pseudomonas aeruginosa Ciprofloxacin JELLY <=0.25 ug/mL: Susceptible Pseudomonas aeruginosa Gentamicin JELLY Resistant Pseudomonas aeruginosa Meropenem JELLY <=0.25 ug/mL: Susceptible Pseudomonas aeruginosa Piperacillin-tazobactam JELLY 8 ug/mL: Susceptible Pseudomonas aeruginosa Tobramycin JELLY <=1 ug/mL: Susceptible Ryanne Hanson MD LAB - MICROBIOLOGY O RDERABLES Performing Organization Address City/[facility]/ZIP Co de Phone Number [facility] [address] [place] [address], [facility] [phone] * (ABNORMAL) URINE MICROSCOPIC ONLY REFLEX TO CULTURE (06/09/2023 3:45 PM [employer]) Reflex Status Culture to follow 06/09/2023 4:02 PM [facility] WBC UA >100(A) None Seen, 0-5 /HPF 06/09/2023 4:02 PM [facility] Bacteria UA Trace(A) None /HPF 06/09/2023 4:02 PM [facility] Yeast Budding UA Few(A) None /HPF 06/09/2023 4:02 PM [facility] Squamous Epithelial Cells UA None Seen None Seen, 0-2, 3-5 /HPF 06/09/2023 4:02 PM [facility] Calcium Oxalate UA Rare(A) None /HPF 06/09/2023 4:02 PM [facility] Urine URINE SPECIMEN OBTAINED BY SINGLE CATHETERIZATION OF URINARY BLADDER / Unknown Collection / Unknown 06/09/2023 3:45 PM [employer] 06/09/2023 3:51 PM [employer]NAGEMENT [facility] - 06/09/2023 4:02 PM [employer] Ryanne Hanson MD LAB - URINALYSIS ORD ERABLES Performing Organization Address City/[facility]/ZIP Co de Phone Number [facility] [address] [place] [address], [place] [phone] * (ABNORMAL) URINALYSIS REFLEX MICROSCOPIC REFLEX CULTURE (06/09/2023 3:45 PM [employer]) Color UA Yellow Straw, Yellow 06/09/2023 3:59 PM [facility] Clarity UA Slt Cloudy(A) Clear 06/09/2023 3:59 PM [facility] Specific [place] UA 1.027 1.005 - 1.030 06/09/2023 3:59 PM [facility] pH UA 6.0 5.0 - 8.0 pH 06/09/2023 3:59 PM [facility] Protein UA 1+(A) Negative 06/09/2023 3:59 PM [facility] Glucose UA Negative Negative 06/09/2023 3:59 PM [facility] Ketone UA Trace(A) Negative 06/09/2023 3:59 PM [facility] Bilirubin UA Negative Negative 06/09/2023 3:59 PM [facility] Blood UA Negative Negative 06/09/2023 3:59 PM [facility] Nitrite UA Negative Negative 06/09/2023 3:59 PM [facility] Leukocyte Esterase 2+(A) Negative 06/09/2023 3:59 PM [facility] Urobilinogen UA 2.0(A) Negative mg/dL 06/09/2023 3:59 PM [facility] Urine URINE SPECIMEN OBTAINED BY SINGLE CATHETERIZATION OF URINARY BLADDER / Unknown Collection / Unknown 06/09/2023 3:45 PM [employer] 06/09/2023 3:51 PM [employer]NAGEMENT [facility] - 06/09/2023 3:59 PM [employer] Ryanne Hanson MD LAB - URINALYSIS ORD ERABLES Performing Organization Address City/State/[facility] Co de Phone Number [address] [address] [phone] * TROPONIN-I HIGH SENSITIVE REFLEX 1HOUR (06/09/2023 2:37 PM [employer]) Troponin I High Sensitive 6 <=35 ng/L 06/09/2023 3:20 PM [facility] Delta Troponin I HS <0 <6 ng/L 06/09/2023 3:20 PM [facility] Blood BLOOD SPECIMEN / Unknown Venipuncture / Unknown 06/09/2023 2:37 PM [employer] 06/09/2023 2:47 PM [employer] Ryanne Hanson MD LAB - CHEMISTRY MARSHAL MEDEROS Performing Organization Address [facility]/ZIP Co de Phone Number [address] [address], [facility] [phone] * LACTIC ACID REPEAT REFLEX (06/09/2023 1:14 PM [employer]) Lactic Acid Repeat Reflex Order LACTIC ACID REPEAT HAS BEEN ORDERED 06/09/2023 3:30 PM PROF[employer]NAGEMENT [facility] Blood BLOOD SPECIMEN / Unknown Venipuncture / Unknown 06/09/2023 1:14 PM [employer] 06/09/2023 2:06 PM [employer] Ryanne Hanson MD LAB - CHEMISTRY MARSHAL MEDEROS Performing Organization Address [facility] Co de Phone Number [address] [address], [facility] [phone] * TSH REFLEX FREE T4 (06/09/2023 1:14 PM [employer]) TSH 1.238 0.350 - 4.940 uIU/mL 06/09/2023 2:31 PM [employer]NAG[employer] [facility] Blood BLOOD SPECIMEN / Unknown Venipuncture / Unknown 06/09/2023 1:14 PM [employer] 06/09/2023 1:41 PM [employer] Ryanne Hanson MD LAB - CHEMISTRY MRASHAL MEDEROS Performing Organization Address [facility]/ZIP Co de Phone Number [address] [address], [facility] [phone] * TROPONIN-I HIGH SENSITIVE BASELINE + 1HR (06/09/2023 1:14 PM [employer]) Troponin I High Sensitive 7 <=35 ng/L 06/09/2023 2:31 PM [employer]NAGEMENT [facility] Blood BLOOD SPECIMEN / Unknown Venipuncture / Unknown 06/09/2023 1:14 PM [employer] 06/09/2023 1:41 PM [employer] Ryanne Hanson MD LAB - CHEMISTRY MARSHAL MEDEROS Performing Organization Address [facility]/ZIP Co de Phone Number [address] [address], [facility] [phone] * PT-INR [facility] (06/09/2023 1:14 PM PROF[employer]) PT 13.5 12.1 - 14.8 Seconds 06/09/2023 2:06 PM [employer]NAG[employer] [facility] INR 1.1 See Comment 06/09/2023 2:06 PM [employer]NAGEMENT [facility] Comment:The suggested therap eutic range for standard coumadin (warfarin) therapy is an INR of 2.0-3.0. For high-risk patients (Mechanical Mitral Valve Prosthesis, etc.), the suggested prophylactic therapeutic range is an INR of 2.5-3.5. Blood BLOOD SPECIMEN / Unknown Venipuncture / Unknown 06/09/2023 1:14 PM [employer] 06/09/2023 1:35 PM [employer] Ryanne Hanson MD LAB - COAGULATION OR DERABLES Performing Organization Address [facility] Co de Phone Number [address] [address], [place] [phone] * LIPASE BLOOD (06/09/2023 1:14 PM [employer]) Lipase 12 8 - 78 U/L 06/09/2023 2:13 PM PROF[employer]NAGEMENT [facility] Blood BLOOD SPECIMEN / Unknown Venipuncture / Unknown 06/09/2023 1:14 PM [employer] 06/09/2023 1:41 PM [employer]NAGEMENT Narrative [facility] - 06/09/2023 2:13 PM [employer] Lipase results from the [employer] Alinity analyzer may not be comparable with other methodologies. Ryanne Hanson MD LAB - CHEMISTRY MARSHAL MEDEROS Performing Organization Address City/[facility]/ZIP Co de Phone Number [address] [address], [place] [phone] * (ABNORMAL) LACTIC ACID BLOOD REFLEX TO REPEAT (06/09/2023 1:14 PM PROF[employer]NAGEMENT) [facility] Lactic Acid-Stat 2.7(H) <=2.0 mmol/L 06/09/2023 2:06 PM [facility] Blood BLOOD SPECIMEN / Unknown Venipuncture / Unknown 06/09/2023 1:14 PM [employer] 06/09/2023 1:41 PM [employer] Ryanne Hanson MD LAB - CHEMISTRY [facility] [address] [place] [address], [facility] [phone] * (ABNORMAL) COMPREHENSIVE METABOLIC PANEL (06/09/2023 1:14 PM PROF[employer]NAGEMENT) [facility] BUN 14 7 - 26 mg/dL 06/09/2023 2:13 PM [facility] Creatinine 0.63(L) 0.71 - 1.16 mg/dL 06/09/2023 2:13 PM [facility] Sodium 141 136 - 145 mmol/L 06/09/2023 2:13 PM [facility] Potassium 4.2 3.5 - 4.5 mmol/L 06/09/2023 2:13 PM [facility] Chloride 106 98 - 107 mmol/L 06/09/2023 2:13 PM [facility] CO2 27 22 - 29 mmol/L 06/09/2023 2:13 PM [facility] Glucose 82 70 - 115 mg/dL 06/09/2023 2:13 PM [facility] Calcium 9.3 8.4 - 10.2 mg/dL 06/09/2023 2:13 PM [facility] Protein Total 7.3 6.0 - 8.3 g/dL 06/09/2023 2:13 PM [facility] Albumin 3.3(L) 3.4 - 5.0 g/dL 06/09/2023 2:13 PM [facility] Bilirubin Total 0.3 0.2 - 1.2 mg/dL 06/09/2023 2:13 PM [facility] Alkaline Phosphatase 96 40 - 150 U/L 06/09/2023 2:13 PM [facility] ALT 11 5 - 55 U/L 06/09/2023 2:13 PM [facility] AST 19 5 - 34 U/L 06/09/2023 2:13 PM [facility] Anion Gap 8 6 - 16 06/09/2023 2:13 PM [facility] BUN/Creatinine Ratio 22 7 - 23 06/09/2023 2:13 PM [facility] Osmolality Calculated 292 275 - 295 mOsm/kg 06/09/2023 2:13 PM [facility] Albumin/Globulin Ratio 0.8(L) 1.1 - 2.3 06/09/2023 2:13 PM [facility] eGFR by CKD-EPI >90 >=90 mL/min/1.7 3 m2 06/09/2023 2:13 PM [facility] Blood BLOOD SPECIMEN / Unknown Venipuncture / Unknown 06/09/2023 1:14 PM [employer] 06/09/2023 1:41 PM [employer] Ryanne Hanson MD LAB - CHEMISTRY [facility] Organization Address City/State/ZIP Co de Phone Number [facility] [address] [place] [phone], [facility] [phone] * (ABNORMAL) CBC W AUTO DIFFERENTIAL (06/09/2023 1:14 PM [employer]) WBC 7.3 4.0 - 10.7 x10E9/L 06/09/2023 2:01 PM [facility] RBC Count 4.50 4.30 - 5.80 x10E12/L 06/09/2023 2:01 PM [facility] Hemoglobin 14.2 13.3 - 17.5 g/dL 06/09/2023 2:01 PM [facility] Hematocrit 43.5 38.7 - 51.1 % 06/09/2023 2:01 PM [facility] MCV 96.7 80.0 - 98.0 fL 06/09/2023 2:01 PM [facility] MCH 31.6 26.7 - 33.6 pg 06/09/2023 2:01 PM [facility] MCHC 32.6 31.7 - 36.3 g/dL 06/09/2023 2:01 PM [facility] RDW-CV 14.6 11.3 - 14.8 % 06/09/2023 2:01 PM [facility] Platelet Count 127(L) 150 - 420 x10E9/L 06/09/2023 2:01 PM [facility] MPV 06/09/2023 2:01 PM [facility] Comment:Unable to report Neutrophil % 74.9(H) 41.0 - 74.0 % 06/09/2023 2:01 PM [facility] Lymphocyte % 11.7(L) 17.0 - 47.0 % 06/09/2023 2:01 PM [facility] Monocyte % 9.9 3.0 - 11.0 % 06/09/2023 2:01 PM [facility] Eosinophil % 3.1 0.0 - 7.0 % 06/09/2023 2:01 PM [facility] Basophil % 0.1 0.0 - 1.6 % 06/09/2023 2:01 PM [facility] Immature Granulocytes % 0.3 0.0 - 1.0 % 06/09/2023 2:01 PM [facility] Neutrophil Absolute 5.49 1.60 - 7.50 x10E9/L 06/09/2023 2:01 PM [facility] Lymphocyte Absolute 0.86(L) 1.00 - 4.40 x10E9/L 06/09/2023 2:01 PM [facility] Monocyte Absolute 0.73 0.15 - 1.00 x10E9/L 06/09/2023 2:01 PM [facility] Eosinophil Absolute 0.23 0.00 - 0.60 x10E9/L 06/09/2023 2:01 PM [facility] Basophil Absolute 0.01 0.00 - 0.13 x10E9/L 06/09/2023 2:01 PM [facility] Blood BLOOD SPECIMEN / Unknown Venipuncture / Unknown 06/09/2023 1:14 PM [employer] 06/09/2023 1:41 PM [employer] Ryanne Hanson MD LAB - HEMATOLOGY ORD ERABLES [id number] [place] [address], [facility] [phone] * XR CHEST 1VW PORTABLE (06/09/2023 12:03 PM [employer]) Anatomical Region Laterality Modality Chest Radiographic Cynthia ging 06/09/2023 11:5 8 AM [employer] Impressions 06/09/2023 12:00 PM [employer] IMPRESSION: Very mild left basilar haziness possibly due to small left pleural effusion with adjacent atelectatic changes. > Interpreting Provider: Hermes Lynn MD on 06/09/2023 12:00 PM Narrative 06/09/2023 12:00 PM [employer] MANAGEMENT PROCEDURE: ??XR CHEST 1VW PORTABLE DATE/TIME OF EXAM: ??06/09/2023 11:49 AM CLINICAL INFORMATION: None relevant/not provided if blank. Indication: R53.1: Weakness Additional History: COMPARISON: AP portable semiupright chest dated 02/26/2023 at 1919 hours FINDINGS: AP portable semiupright view of the chest is performed and demonstrates the tracheostomy tube to superimpose the midline mid tracheal region. The lungs appear hypoventilated but otherwise without acute infiltrate or consolidation. Cardiac silhouette stable and believed to be within normal limits. Almita, mediastinum, and vascular lung markings without concerning abnormality. Haziness at the left lung base may be due to a small left pleural effusion with some adjacent atelectatic changes. Procedure Note Hermes Lynn MD - 06/09/2023 PROCEDURE: XR CHEST 1VW PORTABLE DATE/TIME OF EXAM: 06/09/2023 11:49 AM CLINICAL INFORMATION: None relevant/not provided if blank. Indication: R53.1: Weakness Additional History: COMPARISON: AP portable semiupright chest dated 02/26/2023 at 1919 hours FINDINGS: AP portable semiupright view of the chest is performed and demonstratesthe tracheostomy tube to superimpose the midline mid tracheal region. Thelungs appear hypoventilated but otherwise without acute infiltrate or consolidation. Cardiac silhouette stable and believed to be withinnormal limits. Almita, mediastinum, and vascular lung markings without concerning abnormality. Haziness at the left lung base may be due to a small left pleural effusion with some adjacent atelectatic changes. IMPRESSION: Very mild left basilar haziness possibly due to small left pleural effusion with adjacent atelectatic changes. 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) Ventricular Rate 98 BPM [facility] Atrial Rate 98 BPM [facility] P-R Interval 164 ms [facility] QRS Duration ms 76 ms [facility] Q-T Interval ms 336 ms [facility] QTC Calculation (Bezet) 428 ms [facility] Calculated P Millen 54 degrees [facility] Calculated R Millen -22 degrees [facility] Calculated T Millen 77 degrees [facility] Interpretation EKG NORMAL SINUS RHYTHM SEPTAL INFARCT (CITED ON OR BEFORE 09-OCT-2022) PROBABLE INFERIOR INFARCT , AGE UNDETERMINED ST ELEVATION IN ANTERIOR LEADS ST ELEVATION, CONSIDER EARLY REPOLARIZATION, PERICARDITIS, OR INJURY / aneurysm ABNORMAL ECG WHEN COMPARED WITH ECG OF 31-DEC-2022 21:09, VENT. RATE HAS INCREASED by 28 bpm QRS DURATION HAS DECREASED ST NO LONGER ELEVATED IN INFERIOR LEADS ST LESS ELEVATED IN ANTERIOR LEADS Confirmed by RYANNE HARDEN MD ([id number]) on 06/09/2023 12:46:36 PM [facility] 06/09/2023 11:5 0 AM PROF[employer]OR [employer] SPORT MANAGEMENT 06/09/2023 12:46 PM PROF[employer]OR [employer] SPORT MANAGEMENT Ryanne Hanson MD ECG ORDERABLES [facility] IRINEO documented in this encounter Visit Diagnoses Diagnosis Sepsis due to pneumonia (HCC)- Primary Weakness Other malaise and fatigue Urinary tract infection without hematuria, site unspecified Elevated lactic acid level Other nonspecific abnormal serum enzyme levels Pleural effusion Unspecified pleural effusion Seizures (CMS/HCC) Other convulsions Aspiration pneumonitis (HCC) Pneumonitis due to inhalation of food or vomitus Weakness Other malaise and fatigue Pleural effusion Unspecified pleural effusion Elevated lactic acid level Other nonspecific abnormal serum enzyme levels Urinary tract infection without hematuria, site unspecified History of CVA (cerebrovascular accident) Transient ischemic attack (TIA), and cerebral infarction without residual deficits Essential (primary) hypertension Unspecified essential hypertension Chronic respiratory failure with hypoxia (HCC) Chronic respiratory failure Severe protein-calorie malnutrition (HCC) Other severe protein-calorie malnutrition documented in this encounter Administered Medications Inactive Administered Medications - up to 3 most recent administrations Medication Order [facility] Action Action Date Dose Rate Site 0.9% NaCl injection 1-10 mL 1-10 mL, Intracatheter, PRN, Other, peripheral line flush, Starting on Marian 06/09/23 at 2346, Until Tu06/28/23 at 1931, Flush peripheral IV catheter with 1-10 mL of normal saline before and after medications and prn to clear blood from the line or to verify patency. 0.9% NaCl injection 3 mL 3 mL, Intracatheter, EVERY 8 HOURS, First dose on Tue06/10/23 at 0030, Until Discontinued, Flush peripheral IV catheter with 3 mL of normal saline every 8 hours. $ Given 06/28/2023 2:01 PM [employer]NAGEMENT 3 mL $ Given 06/28/2023 5:20 AM [employer] MANAGEMENT 3 mL $ Given 06/27/2023 8:26 PM [employer] MANAGEMENT 3 mL acetaminophen (Tylenol) solution 1,000 mg 1,000 mg, Enteral Tube, 3 TIMES DAILY, First dose on 06/25/23 at 1400, Until Discontinued, Patient preference for lesser PRN pain meds may be honored when the patient requests a less strong medication, a lower dose, or a less intrusive route of administration when the lesser drug, dose and route have been ordered for the patient. This patient request must be documented in the MAR. $ Given 06/28/2023 2:01 PM [employer] MANAGEMENT 1,000 mg G Tub e $ Given 06/28/2023 8:49 AM PROF[employer] MANAGEMENT 1,000 mg G Tube $ Given 06/27/2023 8:25 PM [employer]NAGEMENT 1,000 mg G Tube acetaminophen (Tylenol) tablet 1,000 mg 1,000 mg, Oral, EVERY 6 HOURS PRN, Headache, Starting on 06/13/23 at 0433, Until Tue06/13/23 at 1008, Patient preference for lesser PRN pain meds may be honored when the patient requests a less strong medication, a lower dose, or a less intrusive route of administration when the lesser drug, dose and route have been ordered for the patient. This patient request must be documented in the MAR. $ Given 06/13/2023 6:46 AM [employer] MANAGEMENT 1,000 mg acetaminophen (Tylenol) tablet 1,000 mg 1,000 mg, Enteral Tube, 3 TIMES DAILY, First dose (after last modification) on Tue06/13/23 at 1400, Until Discontinued, Patient preference for lesser PRN pain meds may be honored when the patient requests a less strong medication, a lower dose, or a less intrusive route of administration when the lesser drug, dose and route have been ordered for the patient. This patient request must be documented in the MAR. $ Given 06/25/2023 10:32 AM [employer] MANAGEMENT 1,000 mg G Tube $ Given 06/24/2023 9:53 PM [employer] MANAGEMENT 1,000 mg G Tube $ Given 06/24/2023 1:47 PM [employer] MANAGEMENT 1,000 mg G Tube albuterol-ipratropium (Duo-Neb) nebulizer solution 3 mL 3 mL, Inhalation, EVERY 6 HOURS WHILE AWAKE, First dose (after last modification) on Tue06/28/23 at 1200, Until Discontinued artificial tears ophthalmic ointment Each Eye, EVERY 8 HOURS, First dose on Tue06/10/23 at 0030, Until Discontinued $ Given 06/28/2023 2:01 PM [employer]NAGEMENT $ Given 06/28/2023 5:21 AM [employer]NAGEMENT $ Given 06/27/2023 8:26 PM [employer] MANAGEMENT aspirin chew tablet 81 mg 81 mg, Enteral Tube, DAILY, First dose on Tue06/10/23 at 0900, Until Discontinued $ Given 06/28/2023 8:49 AM [employer] MANAGEMENT 81 mg G Tub e $ Given 06/27/2023 11:35 AM [employer]NAGEMENT 81 mg G Tube $ Given 06/26/2023 8:27 AM [employer]NAGEMENT 81 mg G Tube atorvastatin (Lipitor) tablet 40 mg 40 mg, Enteral Tube, AT BEDTIME, First dose on Tue06/10/23 at 0030, Until Discontinued $ Given 06/27/2023 8:25 PM [employer]NAGEMENT 40 mg G Tub e $ Given 06/26/2023 9:24 PM [employer]GEMENT 40 mg G Tube $ Given 06/25/2023 8:03 PM [employer]NAGEMENT 40 mg G Tube bisacodyl (Dulcolax) suppository 10 mg 10 mg, Rectal, DAILY PRN, Constipation, Starting on 06/25/23 at 1453, Until Tue06/28/23 at 1931 $ Given 06/26/2023 5:25 PM [employer]NAGEMENT 10 mg cefepime (Maxipime) 2,000 mg in 0.9% NaCl IV 50 mL IVPB 2,000 mg (2 g), at 100 mL/hr, Intravenous, EVERY 8 HOURS, First dose on Tue06/11/23 at 0915, Until Discontinued, Indication for anti-infective therapy: Suspected infection, Site of anti-infective therapy: Urine/Genitourinary $ New Bag/Syringe 06/11/2023 8:58 AM [employer] MANAGEMENT 2,000 mg 100 mL/hr ceftolozane-tazobactam (Zerbaxa) 3,000 mg in 0.9% NaCl IV 100 mL IVPB 3,000 mg, at 33.33 mL/hr, Intravenous, EVERY 8 HOURS, 20 doses, First dose on Tue06/11/23 at 1415, Last dose on Tue06/17/23 at 2330, Refrigerate and Protect from Light., Indication for restricted (Tier 1) anti-infective therapy (empiric or definitive treatment): MDR Pseudomonas aeruginosa, Site of anti-infective therapy: Urine/Genitourinary, Lower Respiratory $ New Bag/Syringe 06/17/2023 11:23 PM [employer] MANAGEMENT 3,000 mg 33.33 mL/hr $ New Bag/Syringe 06/17/2023 5:18 PM [employer] MANAGEMENT 3,000 mg 33.33 mL/hr $ New Bag/Syringe 06/17/2023 8:13 AM PROF[employer] MANAGEMENT 3,000 mg 33.33 mL/hr cefTRIAXone (Rocephin) 2,000 mg in 0.9% NaCl IV 50 mL IVPB 2,000 mg (2 g), at 100 mL/hr, Intravenous, EVERY 24 HOURS, First dose on Marian 06/09/23 at 1645, Until Discontinued, Ceftriaxone can cause precipitation when administered with calcium-containing fluids, including LR. Flush lines with a compatible fluid, such as D5W or NS before and after ceftriaxone dose. Admin through separate lumens is acceptable., Indication for anti-infective therapy: Documented infection, Site of anti-infective therapy: Urine/Genitourinary $ New Bag/Syringe 06/10/2023 4:28 PM [employer] MANAGEMENT 2,000 mg 100 mL/hr $ New Bag/Syringe 06/09/2023 4:19 PM [employer] MANAGEMENT 2,000 mg 100 mL /hr cloBAZam (Onfi) tablet 10 mg 10 mg, Enteral Tube, EVERY MORNING, First dose on Tue06/10/23 at 1115, Until Discontinued $ Given 06/20/2023 9:06 AM [employer] MANAGEMENT 10 mg G Tube $ Given 06/19/2023 5:30 AM [employer] MANAGEMENT 10 mg G Tube $ Given 06/18/2023 6:28 AM PROF[employer] MANAGEMENT 10 mg G Tube cloBAZam (Onfi) tablet 10 mg 10 mg, Enteral Tube, EVERY MORNING, First dose (after last modification) on Tue06/21/23 at 0700, Until Discontinued $ Given 06/21/2023 6:12 AM PROF[employer] MANAGEMENT 10 m g G Tube cloBAZam (Onfi) tablet 15 mg 15 mg, Enteral Tube, EVERY EVENING, First dose on Tue06/10/23 at 1700, Until Discontinued $ Given 06/20/2023 6:56 PM [employer] MANAGEMENT 15 mg G Tube $ Given 06/19/2023 6:59 PM [employer]NAGEMENT 15 mg G Tube $ Given 06/18/2023 5:30 PM [employer] MANAGEMENT 15 mg G Tube cloBAZam (Onfi) tablet 20 mg 20 mg, Enteral Tube, 2 TIMES DAILY, First dose on Tue06/21/23 at 2100, Until Discontinued $ Given 06/28/2023 8:49 AM [employer] MANAGEMENT 20 mg G Tube $ Given 06/27/2023 8:25 PM [employer]NAGEMENT 20 mg G Tube $ Given 06/27/2023 11:35 AM PROF[employer] MANAGEMENT 20 mg G Tube cloBAZam (Onfi) tablet 5 mg 5 mg, Enteral Tube, Once, 1 dose, On Tue06/21/23 at 1000 $ Given 06/21/2023 11:02 AM PROF[employer] MANAGEMENT 5 mg G Tube cloBAZam (Onfi) tablet 5 mg 5 mg, Enteral Tube, Once, 1 dose, On Tue06/21/23 at 1630 $ Given 06/21/2023 4:43 PM [employer] MANAGEMENT 5 mg G Tube famotidine (Pepcid) tablet 20 mg 20 mg, Enteral Tube, 2 TIMES DAILY, First dose on Tue06/10/23 at 0030, Until Discontinued $ Given 06/28/2023 8:49 AM [employer] MANAGEMENT 20 mg G Tube $ Given 06/27/2023 8:25 PM [employer]NAGEMENT 20 mg G Tube $ Given 06/27/2023 11:35 AM PROF[employer] MANAGEMENT 20 mg G Tube fosphenytoin (Cerebyx) 1,630 mg PE in 0.9% NaCl IV 132.6 mL IVPB 1,630 mg PE (rounded from 1,632 mg PE = 20 mg PE/kg ? 81.6 kg), at 265.2 mL/hr, Intravenous, ONCE, 1 dose, On Tue06/21/23 at 2000, maximum administration rate 150mg PE/min due to risk of hypotension. Refrigerate $ New Bag/Syringe 06/21/2023 8:48 PM [employer] MANAGEMENT 1,630 mg PE 265.2 mL/hr guaiFENesin (Robitussin) solution 15 mL 15 mL, Enteral Tube, EVERY 6 HOURS (03,09,15,21), First dose on Tue06/10/23 at 0300, Until Discontinued $ Given 06/28/2023 2:26 AM PROF[employer] MANAGEMENT 15 mL G Tube $ Given 06/27/2023 8:25 PM [employer] MANAGEMENT 15 mL G Tube $ Given 06/27/2023 4:21 PM PROF[employer] MANAGEMENT 15 mL G Tube guaiFENesin (Robitussin) solution 15 mL 15 mL, Enteral Tube, EVERY 12 HOURS, First dose (after last modification) on Tue06/28/23 at 0900, Until Discontinued $ Given 06/28/2023 9:01 AM PROF[employer] MANAGEMENT 15 mL G Tube heparin injection 5,000 Units 5,000 Units, Subcutaneous, EVERY 8 HOURS, First dose on Tue06/10/23 at 0030, Until Discontinued $ Given 06/28/2023 2:01 PM PROF[employer] MANAGEMENT 5,000 Units Abd Right Lower Quadrant $ Given 06/28/2023 5:20 AM PROF[employer]ORT MANAGEMENT 5,000 Units A bd Left Upper Quadrant $ Given 06/27/2023 8:24 PM PROF[employer] MANAGEMENT 5,000 Units A bd Right Lower Quadrant ibuprofen (Motrin) tablet 200 mg 200 mg, Enteral Tube, EVERY 6 HOURS PRN, Mild Pain, or headache, break through to tylenol, Starting on Tue06/25/23 at 1201, Until Tue06/28/23 at 1931, Maximum allowable amount = 3200 mg / 24 hours. Patient preference for lesser PRN pain meds may be honored when the patient requests a less strong medication, a lower dose, or a less intrusive route of administration when the lesser drug, dose and route have been ordered for the patient. This patient request must be documented in the MAR. ibuprofen (Motrin) tablet 400 mg 400 mg, Enteral Tube, Once, 1 dose, On Tue06/13/23 at 1030, Maximum allowable amount = 3200 mg / 24 hours. Patient preference for lesser PRN pain meds may be honored when the patient requests a less strong medication, a lower dose, or a less intrusive route of administration when the lesser drug, dose and route have been ordered for the patient. This patient request must be documented in the MAR. $ Given 06/13/2023 11:48 AM PROF[employer] MANAGEMENT 400 mg G Tube iopamidol (Isovue 370) 76 % contrast Intravenous, CONTRAST ONCE, Starting on Marian 06/09/23 at 2056, Until 06/11/23 at 2055 $ Given - Contrast 06/09/2023 10:27 PM PROF[employer] MANAGEMENT 100 mL lacosamide (Vimpat) 200 mg in 0.9% NaCl IV 70 mL IVPB 200 mg, at 140 mL/hr, Intravenous, Once, 1 dose, On Tue06/20/23 at 1615 $ New Bag/Syringe 06/20/2023 6:58 PM [employer] MANAGEMENT 200 mg 140 mL/hr lacosamide (Vimpat) 400 mg in 0.9% NaCl IV 90 mL IVPB 400 mg, at 180 mL/hr, Intravenous, Once, 1 dose, On Tue06/20/23 at 1430 $ New Bag/Syringe 06/20/2023 3:10 PM [employer] MANAGEMENT 400 mg 180 mL/hr lacosamide (Vimpat) tablet 200 mg 200 mg, Per G Tube, 2 TIMES DAILY, First dose on Tue06/21/23 at 0900, Until Discontinued $ Given 06/28/2023 8:49 AM PROF[employer] MANAGEMENT 200 mg G Tube $ Given 06/27/2023 8:25 PM [employer]NAGEMENT 200 mg $ Given 06/27/2023 11:35 AM PROF[employer] MANAGEMENT 200 mg lactated ringers IV bolus 1,000 mL, at 983.61 mL/hr, Administer over 61 Minutes, ONCE, 1 dose, On Marian 06/09/23 at 1445 $ New Bag/Syringe 06/09/2023 2:37 PM [employer] MANAGEMENT 1,000 mL 983.61 mL/hr lactated ringers IV bolus 1,000 mL, at 983.61 mL/hr, Administer over 61 Minutes, ONCE, 1 dose, On Marian 06/09/23 at 1645 $ New Bag/Syringe 06/09/2023 5:02 PM [employer] MANAGEMENT 1,000 mL 983.61 mL/hr lactated ringers IV bolus 1,000 mL, at 983.61 mL/hr, Administer over 61 Minutes, ONCE, 1 dose, On 06/11/23 at 0845 $ New Bag/Syringe 06/11/2023 8:51 AM [employer] MANAGEMENT 1,000 mL 983.61 mL/hr levETIRAcetam (Keppra) oral solution 2,000 mg 2,000 mg, Enteral Tube, 2 TIMES DAILY, First dose on 06/25/23 at 2100, Until Discontinued $ Given 06/28/2023 9:00 AM PROF[employer] MANAGEMENT 2,000 mg G Tube $ Given 06/27/2023 8:25 PM PROF[employer] MANAGEMENT 2,000 mg G Tube $ Given 06/27/2023 11:43 AM PROF[employer] MANAGEMENT 2,000 mg G Tube levETIRAcetam (Keppra) tablet 2,000 mg 2,000 mg, Enteral Tube, 2 TIMES DAILY, First dose on Tue06/10/23 at 0030, Until Discontinued, Do not crush or chew because of TASTE only. $ Given 06/25/2023 10:32 AM PROF[employer] MANAGEMENT 2,000 mg G Tu be $ Given 06/24/2023 9:54 PM PROF[employer] MANAGEMENT 2,000 mg G Tube $ Given 06/24/2023 9:47 AM PROF[employer] MANAGEMENT 2,000 mg G Tube LORazepam (Ativan) injection 2 mg 2 mg, Intravenous, ONCE, 1 dose, On 06/20/23 at 1030 $ Given 06/20/2023 10:19 AM [employer]NAGEMENT 2 mg metoprolol tartrate IR (Lopressor) tablet 25 mg 25 mg, Enteral Tube, 2 TIMES DAILY, First dose on Tue06/10/23 at 0030, Until Discontinued $ Given 06/28/2023 8:49 AM PROF[employer] MANAGEMENT 25 mg G Tube $ Given 06/27/2023 8:24 PM [employer]NAGEMENT 25 mg G Tube $ Given 06/27/2023 11:35 AM [employer]NAGEMENT 25 mg G Tube polyethylene glycol 3350 (Miralax) packet 17 g 17 g, Enteral Tube, DAILY, First dose on Tue06/25/23 at 1530, Until Discontinued, Mix in 8 ounces of water, juice, soda, coffee or tea prior to administration $ Given 06/26/2023 8:26 AM [employer]NAGEMENT 17 g G Tube $ Given 06/25/2023 3:27 PM [employer]NAGEMENT 17 g G Tube potassium - sodium phosphates (Phos-Nak) powder 1 packet 1 packet, Enteral Tube, EVERY 4 HOURS, 3 doses, First dose (after last modification) on Tue06/13/23 at 0000, Last dose on Tue06/13/23 at 0800, Mix contents of packet in 6 to 8 ounces of water and drink, may taste better if cold Contains Phos 8 mmol, K+ 7 mEq, Na 7 mEq per packet $ Given 06/13/2023 8:33 AM [employer]NAGEMENT 1 packet G Tube $ Given 06/13/2023 4:12 AM PROF[employer] MANAGEMENT 1 packet J Tube $ Given 06/13/2023 12:25 AM [employer]NAGEMENT 1 packet J Tube potassium - sodium phosphates (Phos-Nak) powder 1 packet 1 packet, Enteral Tube, 3 TIMES DAILY WITH MEALS, 3 doses, First dose on Tue06/26/23 at 1200, Last dose on Tue06/27/23 at 0800, Mix contents of packet in 6 to 8 ounces of water and drink, may taste better if cold Contains Phos 8 mmol, K+ 7 mEq, Na 7 mEq per packet $ Given 06/27/2023 11:35 AM [employer] MANAGEMENT 1 packe t G Tube $ Given 06/26/2023 5:25 PM [employer]NAGEMENT 1 packet G Tube $ Given 06/26/2023 11:30 AM [employer]NAGEMENT 1 packet G Tube senna (Senokot) tablet 8.6 mg 8.6 mg, Oral, DAILY PRN, Constipation, Starting on Tue06/25/23 at 1452, Until Tue06/26/23 at 1027 $ Given 06/25/2023 3:27 PM [employer]NAGEMENT 8.6 mg senna (Senokot) tablet 8.6 mg 8.6 mg, Enteral Tube, DAILY PRN, Constipation, Starting on Tue06/26/23 at 1027, Until Tue06/28/23 at 1931 sodium phosphate 30 mmol IVPB 260 mL 30 mmol, at 43.33 mL/hr, Administer over 6 Hours, Intravenous, ONCE, 1 dose, On Tue06/15/23 at 1445 $ New Bag/Syringe 06/15/2023 3:01 PM [employer]NAGEMENT 30 mmol 43.33 mL/hr valproate (Depacon) 1,460 mg in 0.9% NaCl IV 64.6 mL IVPB 1,460 mg (20 mg/kg ? 73 kg [place] weight), at 43.07 mL/hr, Intravenous, Once, 1 dose, On Tue06/24/23 at 0900 $ New Bag/Syringe 06/24/2023 9:53 AM [employer]NAGEMENT 1,460 mg 43.07 mL/hr valproic acid (Depakene) solution 1,000 mg 1,000 mg, Per G Tube, EVERY 6 HOURS, First dose (after last modification) on Tue06/24/23 at 1200, Until Discontinued $ Given 06/28/2023 5:32 PM [employer]NAGEMENT 1,000 mg $ Given 06/28/2023 11:23 AM [employer]NAG[employer] 1,000 mg $ Given 06/28/2023 5:20 AM [employer]NAG[employer] 1,000 mg valproic acid (Depakene) solution 500 mg 500 mg, Per G Tube, 4 TIMES DAILY, First dose on Tue06/10/23 at 0900, Until Discontinued $ Given 06/21/2023 9:59 PM [employer]GEMENT 500 mg $ Given 06/21/2023 4:43 PM [employer] 500 mg $ Given 06/21/2023 1:29 PM [employer] 500 mg valproic acid (Depakene) solution 750 mg 750 mg, Per G Tube, EVERY 6 HOURS, First dose (after last modification) on Tue06/22/23 at 1200, Until Discontinued $ Given 06/24/2023 1:17 AM [employer]NAGEMENT 750 mg $ Given 06/23/2023 6:44 PM [employer]NAGEMENT 750 mg $ Given 06/23/2023 12:50 PM [employer] 750 mg vancomycin (Vancocin) 1,000 mg in 0.9% NaCl IV 250 mL IVPB 1,000 mg, at 250 mL/hr, Intravenous, EVERY 8 HOURS, First dose on Tue06/12/23 at 1800, Until Discontinued, Indication for anti-infective therapy: Suspected infection, Site of anti-infective therapy: Lower Respiratory $ New Bag/Syringe 06/13/2023 2:32 AM [employer] 1,000 mg 250 mL/hr $ New Bag/Syringe 06/12/2023 7:19 PM [employer] 1,000 mg 250 mL /hr vancomycin (Vancocin) 1,000 mg in 0.9% NaCl IV 250 mL IVPB 1,000 mg, at 250 mL/hr, Intravenous, EVERY 12 HOURS, 3 doses, First dose (after last modification) on Marian 06/16/23 at 2000, Last dose on Tue06/17/23 at 2000, Indication for anti-infective therapy: Suspected infection, Site of anti-infective therapy: Lower Respiratory $ New Bag/Syringe 06/17/2023 8:54 PM [employer] 1,000 mg 250 mL/hr $ New Bag/Syringe 06/17/2023 10:32 AM [employer]NAG[employer] 1,000 mg 250 m L/hr $ New Bag/Syringe 06/16/2023 8:04 PM [employer]NAG[employer] 1,000 mg 250 mL /hr vancomycin (Vancocin) 1,500 mg in 500 mL NaCl IVPB Premix 1,500 mg, at 333.33 mL/hr, Intravenous, EVERY 12 HOURS, First dose (after last modification) on Tue06/13/23 at 1400, Until Discontinued, Indication for anti-infective therapy: Suspected infection, Site of anti-infective therapy: Lower Respiratory $ New Bag/Syringe 06/16/2023 3:53 AM [employer] 1,500 mg 333.33 mL/hr $ New Bag/Syringe 06/15/2023 2:56 PM [employer] 1,500 mg 333.33 mL/hr $ New Bag/Syringe 06/15/2023 3:43 AM [employer]NAGEMENT 1,500 mg 333.33 mL/hr vancomycin (Vancocin) 2,000 mg in 500 mL NaCl IVPB Premix 2,000 mg, at 250 mL/hr, Intravenous, ONCE, 1 dose, On Tue06/12/23 at 0845, Indication for anti-infective therapy: Suspected infection, Site of anti-infective therapy: Lower Respiratory $ New Bag/Syringe 06/12/2023 10:12 AM [employer] 2,000 mg 250 mL/hr documented in this encounter Active and Recently Administered Medications Times are shown in [employer]. Scheduled Medication Order 06/26/2023 06/27/2023 06/28/2023 0.9% NaCl injection 3 mL(Linked Group 1) 3 mL, Intracatheter, EVERY 8 HOURS, First dose on Tue06/10/23 at 0030, Until Discontinued, Flush peripheral IV catheter with 3 mL of normal saline every 8 hours. 0512 ($ Given - Provider: Ilda Phan RN)1408 ($ Given - Provider: Ricci Drummond RN)2124 ($ Given - Provider: Riky Monteiro RN) 0502 ($ Given - Provider: Riky Monteiro RN)1347 ($ Given - Provider: Meggan Hoyos RN)2025 ($ Given - Provider: Riky Monteiro RN) 0520 ($ Given - Provider: Riky Monteiro RN)1401 ($ Given - Provider: Elaina Jay RN) acetaminophen (Tylenol) solution 1,000 mg 1,000 mg, Enteral Tube, 3 TIMES DAILY, First dose on Tue06/25/23 at 1400, Until Discontinued, Patient preference for lesser PRN pain meds may be honored when the patient requests a less strong medication, a lower dose, or a less intrusive route of administration when the lesser drug, dose and route have been ordered for the patient. This patient request must be documented in the MAR. 0826 ($ Given - Provider: Ricci Drummond RN)1408 ($ Given - Provider: Ricci Drummond RN)2123 ($ Given - Provider: Riky Monteiro RN) 1136 ($ Given - Provider: Meggan Hoyos RN)1347 (Not Administered - Provider: Meggan Hoyos RN - Reason: See Comments - Comment: too close to prev dose)2024 ($ Given - Provider: Riky Monteiro RN) 0849 ($ Given - Provider: Elaina Jay RN)1401 ($ Given - Provider: Elaina Jay RN) albuterol-ipratropium (Duo-Neb) nebulizer solution 3 mL 3 mL, Inhalation, EVERY 6 HOURS WHILE AWAKE, First dose (after last modification) on Tue06/28/23 at 1200, Until Discontinued 1200 (Due)1800 (Due) artificial tears ophthalmic ointment Each Eye, EVERY 8 HOURS, First dose on Tue06/10/23 at 0030, Until Discontinued 0512 ($ Given - Provider: Ilda Phan RN)1409 ($ Given - Provider: Ricci Drummond RN)212 ($ Given - Provider: Riky Monteiro RN) 0507 ($ Given - Provider: Riky Monteiro RN)1348 ($ Given - Provider: Meggan Hoyos RN)2025 ($ Given - Provider: Riky Monteiro RN) 0521 ($ Given - Provider: Riky Monteiro RN)1401 ($ Given - Provider: Elaina Jay, RN) aspirin chew tablet 81 mg 81 mg, Enteral Tube, DAILY, First dose on Tue06/10/23 at 0900, Until Discontinued 08 ($ Given - Provider: Ricci Drummond RN) 113 ($ Given - Provider: Meggan Hoyos, ALFRED) 0849 ($ Given - Provider: Elaina Jay RN) atorvastatin (Lipitor) tablet 40 mg 40 mg, Enteral Tube, AT BEDTIME, First dose on Tue06/10/23 at 0030, Until Discontinued 2123 ($ Given - Provider: Riky Monteiro RN) 2024 ($ Given - Provider: Riky Monteiro RN) cloBAZam (Onfi) tablet 20 mg 20 mg, Enteral Tube, 2 TIMES DAILY, First dose on Tue06/21/23 at 2100, Until Discontinued 08 ($ Given - Provider: Ricci Drummond RN)2122 ($ Given - Provider: Riky Monteiro RN) 113 ($ Given - Provider: Meggan Hoyos RN)2024 ($ Given - Provider: Riky Monteiro RN) 0849 ($ Given - Provider: Elaina Jay, ALFRED) famotidine (Pepcid) tablet 20 mg 20 mg, Enteral Tube, 2 TIMES DAILY, First dose on Tue06/10/23 at 0030, Until Discontinued 08 ($ Given - Provider: Ricci Drummond RN)2123 ($ Given - Provider: Riky Monteiro RN) 113 ($ Given - Provider: Meggan Hoyos RN)2024 ($ Given - Provider: Riky Monteiro RN) 0849 ($ Given - Provider: Elaina Jay RN) guaiFENesin (Robitussin) solution 15 mL (CANCELED) 15 mL, Enteral Tube, EVERY 6 HOURS (03,09,15,21), First dose on Tue06/10/23 at 0300, Until Discontinued 0300 ($ Given - Provider: Ilda Phan RN)0826 ($ Given - Provider: Ricci Drummond RN)1408 ($ Given - Provider: Ricci Drummond RN)212 ($ Given - Provider: Riky Monteiro RN) 0226 ($ Given - Provider: Riky Monteiro RN)1136 ($ Given - Provider: Meggan Hoyos, RN)162 ($ Given - Provider: Meggan Hoyos RN)2024 ($ Given - Provider: Riky Monteiro RN) 022 ($ Given - Provider: Riky Monteiro RN) guaiFENesin (Robitussin) solution 15 mL 15 mL, Enteral Tube, EVERY 12 HOURS, First dose (after last modification) on Tue06/28/23 at 0900, Until Discontinued 09 ($ Given - Provider: Elaina Jay RN) heparin injection 5,000 Units 5,000 Units, Subcutaneous, EVERY 8 HOURS, First dose on Tue06/10/23 at 0030, Until Discontinued 0512 ($ Given - Provider: Ilda Phan RN)1409 ($ Given - Provider: Ricci Drummond RN)212 ($ Given - Provider: Riky Monteiro RN) 0501 ($ Given - Provider: Riky Monteiro RN)1348 ($ Given - Provider: Meggan Hoyos RN)2023 ($ Given - Provider: Riky Monteiro RN) 0520 ($ Given - Provider: Riky Monteiro RN)1401 ($ Given - Provider: Elaina Jay, ALFRED) lacosamide (Vimpat) tablet 200 mg 200 mg, Per G Tube, 2 TIMES DAILY, First dose on Tue06/21/23 at 0900, Until Discontinued 08 ($ Given - Provider: Ricci Drummond RN)212 ($ Given - Provider: Riky Monteiro RN) 113 ($ Given - Provider: Meggan Hoyos, ALFRED)2024 ($ Given - Provider: Riky Monteiro RN) 0849 ($ Given - Provider: Elaina Jay RN) levETIRAcetam (Keppra) oral solution 2,000 mg 2,000 mg, Enteral Tube, 2 TIMES DAILY, First dose on Tue06/25/23 at 2100, Until Discontinued 0830 ($ Given - Provider: Ricci Drummond RN)212 ($ Given - Provider: Riky Monteiro, RN) 1143 ($ Given - Provider: Meggan Hoyos, ALFRED)2024 ($ Given - Provider: Riky Monteiro RN) 0900 ($ Given - Provider: Elaina Jay, ALFRED) metoprolol tartrate IR (Lopressor) tablet 25 mg 25 mg, Enteral Tube, 2 TIMES DAILY, First dose on Tue06/10/23 at 0030, Until Discontinued 08 ($ Given - Provider: Ricci Drummond RN)212 ($ Given - Provider: Riky Monteiro RN) 113 ($ Given - Provider: Meggan Hoyos, ALFRED)2023 ($ Given - Provider: Riky Monteiro RN) 0849 ($ Given - Provider: Elaina Jay, ALFRED) polyethylene glycol 3350 (Miralax) packet 17 g 17 g, Enteral Tube, DAILY, First dose on Tue06/25/23 at 1530, Until Discontinued, Mix in 8 ounces of water, juice, soda, coffee or tea prior to administration 0826 ($ Given - Provider: Ricci Drummond RN) 1136 (Not Administered - Provider: Meggan Hoyos RN - Reason: Per Administration Instructions - Comment: loose brown stool) 0843 (Not Administered - Provider: Elaina Jay RN - Reason: See Comments - Comment: diarrhea over night) potassium - sodium phosphates (Phos-Nak) powder 1 packet (COMPLETED) 1 packet, Enteral Tube, 3 TIMES DAILY WITH MEALS, 3 doses, First dose on Tue06/26/23 at 1200, Last dose on Tue06/27/23 at 0800, Mix contents of packet in 6 to 8 ounces of water and drink, may taste better if cold Contains Phos 8 mmol, K+ 7 mEq, Na 7 mEq per packet 1130 ($ Given - Provider: Ricci Drummond RN)1725 ($ Given - Provider: Ricci Drummond RN) 1135 ($ Given - Provider: Meggan Hoyos, ALFRED) valproic acid (Depakene) solution 1,000 mg 1,000 mg, Per G Tube, EVERY 6 HOURS, First dose (after last modification) on 1/26/24 at 1200, Until Discontinued 0505 ($ Given - Provider: Ilda Phan RN)1130 ($ Given - Provider: Ricci Drummond, RN)1725 ($ Given - Provider: Ricci Drummond RN)2339 ($ Given - Provider: Riky Monteiro RN) 0501 ($ Given - Provider: Riky Monteiro RN)1139 ($ Given - Provider: Meggan Hoyos, RN)1757 ($ Given - Provider: Meggan Hoyos, ALFRED)2302 ($ Given - Provider: Riky Monteiro RN) 0520 ($ Given - Provider: Riky Monteiro RN)1123 ($ Given - Provider: Elaina Jay, ALFRED)1732 ($ Given - Provider: Elaina Jay RN) PRN Medication Order 06/26/2023 06/27/2023 06/28/2023 0.9% NaCl injection 1-10 mL(Linked Group 1) 1-10 mL, Intracatheter, PRN, Other, peripheral line flush, Starting on Marian 06/09/23 at 2346, Until Tue06/28/23 at 1931, Flush peripheral IV catheter with 1-10 mL of normal saline before and after medications and prn to clear blood from the line or to verify patency. bisacodyl (Dulcolax) suppository 10 mg 10 mg, Rectal, DAILY PRN, Constipation, Starting on 06/25/23 at 1453, Until Tu06/28/23 at 1931 1725 ($ Given - Provider: Ricci Drummond RN) ibuprofen (Motrin) tablet 200 mg 200 mg, Enteral Tube, EVERY 6 HOURS PRN, Mild Pain, or headache, break through to tylenol, Starting on 06/25/23 at 1201, Until 06/28/23 at 1931, Maximum allowable amount = 3200 mg / 24 hours. Patient preference for lesser PRN pain meds may be honored when the patient requests a less strong medication, a lower dose, or a less intrusive route of administration when the lesser drug, dose and route have been ordered for the patient. This patient request must be documented in the MAR. senna (Senokot) tablet 8.6 mg 8.6 mg, Enteral Tube, DAILY PRN, Constipation, Starting on 06/26/23 at 1027, Until Tue06/28/23 at 1931 Linked Groups Order Group 1: SALINE LOCK, INSERT AND MAINTAIN (CANCELED) Routine, CONTINUOUS, Starting on Tue06/10/23 at 0000, Until Specified, New collection, Task Completed: Yes And 0.9% NaCl injection 3 mLJump to med 3 mL, Intracatheter, EVERY 8 HOURS, First dose on Tue06/10/23 at 0030, Until Discontinued, Flush peripheral IV catheter with 3 mL of normal saline every 8 hours. And 0.9% NaCl injection 1-10 mLJump to med 1-10 mL, Intracatheter, PRN, Other, peripheral line flush, Starting on Marian 06/09/23 at 2346, Until Tue06/28/23 at 1931, Flush peripheral IV catheter with 1-10 mL of normal saline before and after medications and prn to clear blood from the line or to verify patency. 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
--- OUTSIDE RECORDS SUMMARY | 2024-06-08 05:30 | XMS_ITS | Encounter Summary ---
Author Organization [facility] Address [address] [place] [address] Care Team Providers Care Weekday Babysitter Name Role Phone Elizabeth Sullivan RN Unavailable [phone] Joyce Luevano APRN-INDUSTRIAL ORDER CLERK Primary Care Provider [phone] Reason for Visit * Reason Comments FEEDING TUBE PROBLEM Pt BIBEMS from [facility] for PEG tube malfunction. Per EMS, CT staff states PEG tube has been nonfunctional for at least [address] staff attempted to administer medications this PM and were unsuccessful. CT states PEG tube won't flush. Family wanted pt transported to hospital. PMHx CVA * Auth/Cert (Routine) Specialty Diagnoses / Procedures Referred By Contac t Referred To Contact Referral ID Status Reason Start Date Expiration Date Visits Re quested Visits Authorized [id number] 1 1 Encounter Details Date Type Department Care Team (Late st Contact Info) Description 02/23/2023 1:36 AM CDT - 02/28/2023 6:20 PM CDT Hospital Encounter [facility] [address] [place] [address] Kortney Vega MD [address] [place] [address] Leonardo Hanson MD [address] [place] [id number] Norma Briones MD [address] [facility] [address] [place] [address] Cory Cali MD [address] [place] [address] Ck Mccurdy MD [address] [place] [address] Westley Corley MD [address] [place] [address] Cami Worthington MD [facility] Paige Brewster MD [address] [place], [place] [id number] Internal Medicine Discharge Disposition: Senior Care or Supportive Care Social History Tobacco Use Types Packs/Day [...] you are drinking? Patient does not drink 3 Q3: How often do you have si x or more drinks on one occasion? Never 02/23/2023 Overall Financial Resource Strain (CARDIA) Answe r Date Recorded How hard is it for you to pa y for the very basics like food, housing, medical care, and heating? Not hard at all 11/28/2022 [facility] - Occupational Stress [...] money to buy more. Never true 11/29/19 Within the past 12 months, t he [...] slept in a [facility] (including now)? No 11/28/2022 Sex and Gender Information Value Date Recorded Sex Assigned at Not on file Gender Identity Not on file Sexual Orientation Not on file documented as of this encounter Last Filed Vital Signs Vital Sign Reading Time Taken Comments Blood Pressure 146/81 02/28/2023 1:23 PM CDT Pulse 53 02/28/2023 1:23 PM CDT Temperature 36.5 ??C (97.7 ??F) 02/28/2023 1:23 PM CD T Respiratory Rate 14 02/28/2023 1:23 PM CDT Oxygen Saturation 98% 02/28/2023 1:23 PM CDT Inhaled Oxygen Concentration 28% 06/2022 12:56 AM CDT Weight 71.5 kg (157 lb 10.1 oz) 02/25/2023 9:00 AM CDT Height 177.8 cm (5' 10 ) 02/25/2023 9:00 AM CDT Body Mass Index 22.62 02/25/2023 9:00 AM CDT documented in this encounter Functional [...] Yes 01/01/2023 documented as of this encounter Discharge Summaries * Paige Brewster MD - 02/28/2023 6:20 PM CDT Images from the original note were not included. Hospital Discharge Summary Patient ID: Bi Tabor [id number] 63 year old 1960 Admit date: 02/23/2023 Discharge date: 02/28/2023 Admitting Physician: Norma Briones MD Discharge Physician: Paige Brewster MD Present on Admission: ??? (Resolved) PEG tube malfunction (CMS/HCC) ??? Aspiration into airway, subsequent encounter ??? History of CVA (cerebrovascular accident) ??? Essential (primary) hypertension ??? Seizure disorder (CMS/HCC) ??? Chronic respiratory failure with hypoxia (CMS/HCC) ??? Dementia, vascular (CMS/HCC) ??? Tracheostomy in place (CMS/HCC) Discharge Diagnoses: - GJ malfunction - s/p replacement 02/25 - c/f aspiration PNA - chronic hypoxic respiratory failure s/p trach?? - hx of multiple aspiration events - Epilepsy?? - HTN - HL - Hx of intraop VT - Hx EtOH use Admission Condition: stable Discharged Condition: stable Indication for Admission: GJ malfunction Hospital Course: Bi Tabor is 63F w PMH of HTN, HL, chronic respiratory failure s/p trach, multiple CVAs/vasculardementia, epilepsy, hx of MDRO aspiration PNA, Zenker diverticulum, PAD s/p L AKA due to nonhealingfoot wound (02/2022), was admitted for GJ tube dysfunction 02/23/23, which IR exchanged 02/25. PEG tube was replaced by IR 02/25, IV medications switched to per tube on 02/26 and TFs initiated. Remained stable. Discharged to his previous facility. Consults: IR Significant Diagnostic Studies: CBC: Recent Labs Lab Units 02/28/23 0541 02/27/2342602/25/23 0434 WBC 10??3/uL 5.4 5.9 4.7 RBC 10??6/uL 3.75* 3.83* 4.18* HGB g/dL 11.7* 12.0 13.3 HCT % 36.0 35.9 39.6 BMP: Recent Labs Lab Units 02/28/23 0541 02/27/2342602/26/23 1619 NA mmol/L 138 138 137 CL mmol/L 107 107 105 CO2 mmol/L 27 26 26 BUN mg/dL 9 11 9 CREATININE mg/dL 0.41* 0.42* 0.38* CALCIUM mg/dL 9.2 8.8 9.3 Magnesium: No results for input(s): MG in the last 168 hours. Phosphorus: Recent Labs Lab Units 02/28/23 0541 02/27/2342602/25/23 043 PHOS mg/dL 2.9 2.3* 3.1 Coagulation: Recent Labs Lab Units 02/24/23 1032 PT Seconds 14.1 INR 1.1 Endocrine: No results for input(s): TSH, A1C in the last 168 hours. LFTs: Recent Labs Lab Units 02/28/23 0541 02/25/23 043 AST U/L 13 -- ALT U/L 7 -- TBILI mg/dL 0.2 -- DBILI mg/dL 0.1 -- IBILI mg/dL 0.1 -- ALB g/dL 2.5* 2.5* IR PERC G TO GJ TUBE EXCHANGE Result Date: 02/25/2023 Impression: Successful exchange of the existing 18 Tanzanian gastrojejunostomy catheter for a new 18 [place] gastrojejunostomy catheter under fluoroscopic guidance, as described [...] Diego Roe DO on 02/25/2023 6:12 PM Discharge Exam: Blood pressure 146/81, pulse 53, temperature 97.7 ??F (36.5 ??C), temperature source Oral, resp. rate 14, height 1.778 m (5' 10 ), weight 71.5 kg (157 lb 10.1 oz), SpO2 98 %. General: alert, nonverbal, no distress HEENT: on trach Lungs: breath sounds normal; breathing comfortably Heart: regular rate and rhythm, no murmurs/rubs/gallops Abdomen: soft, non-tender, non-distended. Skin: No rashes noted Extremities: no edema MSK: L AKA Neuro: Alert, but couldn't follow command on my exam ?? Disposition: skilled nursing Patient Instructions: Medication List START taking these medications calcium carbonate (500 mg elemental Ca/5 mL) 1250 MG/5ML suspension 5 mL by Enteral Tube route every 6 hours as needed famotidine 20 MG tablet Commonly known as: Pepcid 1 (one) tablet by Enteral Tube route 2 times daily sennosides 8.6 MG tablet Commonly known as: Senokot 1 (one) tablet by Enteral Tube route once daily CHANGE how you take these medications atorvastatin 40 MG tablet Commonly known as: Lipitor 1 (one) tablet by Enteral Tube route at bedtime What changed: when to take this * cloBAZam 20 MG tablet Commonly known as: Onfi 1 (one) tablet by Enteral Tube route every evening What changed: You were already taking a medication with the same name, and this prescription was added. Make sure you understand how and when to take each. * cloBAZam 10 MG tablet Commonly known as: Onfi 1.5 (one and one-half) tablets by Enteral Tube route every morning What changed: ?? how much to take ?? how to take this ?? when to take this ?? additional instructions guaiFENesin 100 MG/5ML solution Commonly known as: Robitussin 15 mL by Enteral Tube route Every 6 Hours (03,09,15,21) What changed: ?? how much to take ?? when to take this polyethylene glycol 3350 17 g packet Commonly known as: Miralax 17 (seventeen) g by Enteral Tube route 2 times daily What changed: when to take this * This list has 2 medication(s) that are the same as other medications prescribed for you. Read thedirections carefully, and ask your doctor or other care provider to review them with you. CONTINUE taking these medications acetaminophen 325 MG tablet Commonly known as: Tylenol 2 (two) tablets by Enteral Tube route every 6 hours as needed Maximum allowable Acetaminophen amount = 4 Grams (4000 mg) / 24 hours. artificial tears ophthalmic ointment Instill into both eyes every 8 hours aspirin 81 MG chew tablet Commonly known as: Aspirin folic acid 1 MG tablet Commonly known as: Folvite 1 (one) tablet by Enteral Tube route once daily levETIRAcetam 1000 MG tablet Commonly known as: Keppra 2 (two) tablets by Enteral Tube route 2 times daily metoprolol tartrate IR 25 MG tablet Commonly known as: Lopressor 1 (one) tablet by Enteral Tube route 2 times daily pantoprazole 40 MG packet Commonly known as: Protonix Take 1 (one) packet by mouth once daily thiamine 100 MG tablet Commonly known as: Vitamin B-1 1 (one) tablet by Enteral Tube route once daily valproic acid 250 MG/5ML solution Commonly known as: Depakene 10 mL by Per G Tube route 4 times daily STOP taking these medications enoxaparin 40 MG/0.4ML injection Commonly known as: Lovenox lacosamide 200 MG tablet Commonly known as: Vimpat senna-docusate 8.6-50 MG tablet Commonly known as: Senokot-S Where to Get Your Medications These medications were sent to [facility] [id number] [place] [address] [facility] [address] ?? atorvastatin 40 MG tablet ?? cloBAZam 10 MG tablet ?? cloBAZam 20 MG tablet ?? famotidine 20 MG tablet ?? guaiFENesin 100 MG/5ML solution ?? levETIRAcetam 1000 MG tablet ?? polyethylene glycol 3350 17 g packet ?? sennosides 8.6 MG tablet ?? valproic acid 250 MG/5ML solution You can get these medications from any pharmacy You don't need a prescription for these medications ?? calcium carbonate (500 mg elemental Ca/5 mL) 1250 MG/5ML suspension Contact information for after-discharge care Destination [facility] (formerly [facility] and [facility] Service: Detention Contact information: [address] [place] [address] Discharge Instructions Bi Tabor, If you need to call [facility] for any reason, you may reach us at [phone] and dial [phone] for the rolls mill operator. PROBLEM LIST: Patient Active Problem List: Cerebrovascular accident (CMS/HCC) Hyperlipidemia Essential (primary) hypertension Insomnia Low back pain Osteoporosis Truncal ataxia Therapeutic procedure Seizures (CMS/HCC) Alcohol abuse, uncomplicated Benign neoplasm of prostate Epilepsy, unspecified, not intractable, without status epilepticus (CMS/HCC) Other specified rheumatoid arthritis, unspecified site (CMS/HCC) Alzheimer's disease with early onset (CMS/HCC) Cognitive communication deficit COVID-19 Dysphagia, oropharyngeal phase Hemiplegia and 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- dominant side (CMS/HCC) History of CVA (cerebrovascular accident) Paroxysmal tachycardia, unspecified (CMS/HCC) Status epilepticus (CMS/HCC) Seizure disorder (CMS/HCC) Bacteremia Ulcer of left foot (CMS/HCC) PAD (peripheral artery disease) (CMS/HCC) Severe protein-calorie malnutrition (CMS/HCC) Abdominal pain, generalized Lethargy History of stroke Protein-calorie malnutrition, unspecified severity (CMS/HCC) Aspiration into airway Aspiration pneumonitis (CMS/HCC) Leukocytosis, unspecified type Hypoxia Acute respiratory failure with hypoxia (CMS/HCC) Atelectasis, right Contrast-induced nephropathy Zenker diverticulum Chronic respiratory failure with hypoxia (CMS/HCC) Pressure ulcer of right heel, stage 3 (CMS/HCC) Dementia, vascular (CMS/HCC) Nasal polyp Acute blood loss anemia PEG (percutaneous endoscopic gastrostomy) status (CMS/HCC) Tracheostomy in place (CMS/HCC) Delayed gastric emptying Anemia of chronic disease Acute encephalopathy Aspiration into airway, subsequent encounter DISCHARGE MEDICATIONS: You were discharged on the following medications: Home Medications TAKE these medications Morning Noon Evening Bed time acetaminophen 325 MG tablet 2 (two) tablets by Enteral Tube route every 6 hours as needed Maximum allowable Acetaminophen amount = 4 Grams (4000 mg) / 24 hours. Commonly known as: Tylenol artificial tears ophthalmic ointment Instill into both eyes every 8 hours aspirin 81 MG chew tablet 1 (one) tablet by Enteral Tube route once daily Commonly known as: Aspirin atorvastatin 40 MG tablet 1 (one) tablet by Enteral Tube route at bedtime Commonly known as: Lipitor calcium carbonate (500 mg elemental Ca/5 mL) 1250 MG/5ML suspension 5 mL by Enteral Tube route every 6 hours as needed * cloBAZam 20 MG tablet 1 (one) tablet by Enteral Tube route every evening Commonly known as: Onfi * cloBAZam 10 MG tablet 1.5 (one and one-half) tablets by Enteral Tube route every morning Commonly known as: Onfi Start taking on: March 01, 2023 famotidine 20 MG tablet 1 (one) tablet by Enteral Tube route 2 times daily Commonly known as: Pepcid folic acid 1 MG tablet 1 (one) tablet by Enteral Tube route once daily Commonly known as: Folvite guaiFENesin 100 MG/5ML solution 15 mL by Enteral Tube route Every 6 Hours (03,09,15,21) Commonly known as: Robitussin levETIRAcetam 1000 MG tablet 2 (two) tablets by Enteral Tube route 2 times daily Commonly known as: Keppra metoprolol tartrate IR 25 MG tablet 1 (one) tablet by Enteral Tube route 2 times daily Commonly known as: Lopressor pantoprazole 40 MG packet Take 1 (one) packet by mouth once daily Commonly known as: Protonix polyethylene glycol 3350 17 g packet 17 (seventeen) g by Enteral Tube route 2 times daily Commonly known as: Miralax sennosides 8.6 MG tablet 1 (one) tablet by Enteral Tube route once daily Commonly known as: Senokot Start taking on: March 01, 2023 thiamine 100 MG tablet 1 (one) tablet by Enteral Tube route once daily Commonly known as: Vitamin B-1 valproic acid 250 MG/5ML solution 10 mL by Per G Tube route 4 times daily Commonly known as: Depakene * This list has 2 medication(s) that are the same as other medications prescribed for you. Read thedirections carefully, and ask your doctor or other care provider to review them with you. If you have any questions about your medications, please be sure to ask the pharmacy when you sweet pickled fruit maker your prescription. You may also call your primary provider if you are uncertain if you should be taking your medication. INSTRUCTIONS: CONCERNING SYMPTOMS: When to call your healthcare provider: Call your healthcare provider immediately if you have any of the following: - Fever of 100.4??F (38??C) or higher - Shaking chills - Intractable nausea and vomiting - Severe headache - Confusion/altered mental status - Seizures (convulsions) - Weakness in arms/legs - Dizziness If you are unable to reach your primary provider, please go to the nearest emergency room or call EMS ([phone]). FOLLOW-UP: No follow-ups on file. It is essential that you keep all of your follow-up appointments and go to your doctors appointments as scheduled. If a follow-up with your primary care provider has not been scheduled, you need to schedule an appointment tofollow-up on your hospitalization. If there is a conflict, please call the clinic ahead of time and reschedule the appointment. Thanks! Internal Medicine Department [address] [address] Signed: Paige Brewster MD 03/02/2023 Time spent on discharge: >45 minutes. Time was spent on preparation of discharge records, prescriptions, counseling patient, working withsocial work and nursing. documented in this encounter Discharge Instructions * Discharge Instructions* Paige Brewster MD - 02/28/2023 3:14 PM CDT Images from the original note were not included. Bi Tabor, If you need to call [facility] for any reason, you may reach us at [phone] and dial 0 for the rolls mill operator. PROBLEM LIST: Patient Active Problem List: Cerebrovascular accident (CMS/HCC) Hyperlipidemia Essential (primary) hypertension Insomnia Low back pain Osteoporosis Truncal ataxia Therapeutic procedure Seizures (CMS/HCC) Alcohol abuse, uncomplicated Benign neoplasm of prostate Epilepsy, unspecified, not intractable, without status epilepticus (CMS/HCC) Other specified rheumatoid arthritis, unspecified site (CMS/HCC) Alzheimer's disease with early onset (CMS/HCC) Cognitive communication deficit COVID-19 Dysphagia, oropharyngeal phase Hemiplegia and 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- dominant side (CMS/HCC) History of CVA (cerebrovascular accident) Paroxysmal tachycardia, unspecified (CMS/HCC) Status epilepticus (CMS/HCC) Seizure disorder (CMS/HCC) Bacteremia Ulcer of left foot (CMS/HCC) PAD (peripheral artery disease) (CMS/HCC) Severe protein-calorie malnutrition (CMS/HCC) Abdominal pain, generalized Lethargy History of stroke Protein-calorie malnutrition, unspecified severity ([facility]/HCC) Aspiration into airway Aspiration pneumonitis ([facility]/HCC) Leukocytosis, unspecified type Hypoxia Acute respiratory failure with hypoxia ([facility]/HCC) Atelectasis, right Contrast-induced nephropathy Zenker diverticulum Chronic respiratory failure with hypoxia ([facility]/HCC) Pressure ulcer of right heel, stage 3 ([facility]/HCC) Dementia, vascular (CMS/HCC) Nasal polyp Acute blood loss anemia PEG (percutaneous endoscopic gastrostomy) status (CMS/HCC) Tracheostomy in place ([facility]/HCC) Delayed gastric emptying Anemia of chronic disease Acute encephalopathy Aspiration into airway, subsequent encounter DISCHARGE MEDICATIONS: You were discharged on the following medications: Home Medications TAKE these medications Morning Noon Evening Bed time acetaminophen 325 MG tablet 2 (two) tablets by Enteral Tube route every 6 hours as needed Maximum allowable Acetaminophen amount = 4 Grams (4000 mg) / 24 hours. Commonly known as: Tylenol artificial tears ophthalmic ointment Instill into both eyes every 8 hours aspirin 81 MG chew tablet 1 (one) tablet by Enteral Tube route once daily Commonly known as: Aspirin atorvastatin 40 MG tablet 1 (one) tablet by Enteral Tube route at bedtime Commonly known as: Lipitor calcium carbonate (500 mg elemental Ca/5 mL) 1250 MG/5ML suspension 5 mL by Enteral Tube route every 6 hours as needed * cloBAZam 20 MG tablet 1 (one) tablet by Enteral Tube route every evening Commonly known as: Onfi * cloBAZam 10 MG tablet 1.5 (one and one-half) tablets by Enteral Tube route every morning Commonly known as: Onfi Start taking on: March 01, 2023 famotidine 20 MG tablet 1 (one) tablet by Enteral Tube route 2 times daily Commonly known as: Pepcid folic acid 1 MG tablet 1 (one) tablet by Enteral Tube route once daily Commonly known as: Folvite guaiFENesin 100 MG/5ML solution 15 mL by Enteral Tube route Every 6 Hours (03,09,15,21) Commonly known as: Robitussin levETIRAcetam 1000 MG tablet 2 (two) tablets by Enteral Tube route 2 times daily Commonly known as: Keppra metoprolol tartrate IR 25 MG tablet 1 (one) tablet by Enteral Tube route 2 times daily Commonly known as: Lopressor pantoprazole 40 MG packet Take 1 (one) packet by mouth once daily Commonly known as: Protonix polyethylene glycol 3350 17 g packet 17 (seventeen) g by Enteral Tube route 2 times daily Commonly known as: Miralax sennosides 8.6 MG tablet 1 (one) tablet by Enteral Tube route once daily Commonly known as: Senokot Start taking on: March 01, 2023 thiamine 100 MG tablet 1 (one) tablet by Enteral Tube route once daily Commonly known as: Vitamin B-1 valproic acid 250 MG/5ML solution 10 mL by Per G Tube route 4 times daily Commonly known as: Depakene * This list has 2 medication(s) that are the same as other medications prescribed for you. Read thedirections carefully, and ask your doctor or other care provider to review them with you. If you have any questions about your medications, please be sure to ask the pharmacy when you sweet pickled fruit maker your prescription. You may also call your primary provider if you are uncertain if you should be taking your medication. INSTRUCTIONS: CONCERNING SYMPTOMS: When to call your healthcare provider: Call your healthcare provider immediately if you have any of the following: - Fever of 100.4??F (38??C) or higher - Shaking chills - Intractable nausea and vomiting - Severe headache - Confusion/altered mental status - Seizures (convulsions) - Weakness in arms/legs - Dizziness If you are unable to reach your primary provider, please go to the nearest emergency room or call EMS (911). FOLLOW-UP: No follow-ups on file. It is essential that you keep all of your follow-up appointments and go to your doctors appointments as scheduled. If a follow-up with your primary care provider has not been scheduled, you need to schedule an appointment tofollow-up on your hospitalization. If there is a conflict, please call the clinic ahead of time and reschedule the appointment. Thanks! Internal Medicine Department [address] [id number] documented in this encounter Medications at Time [...] daily 04/01/2022 cloBAZam (Onfi) 10 MG tablet 1.5 (one and one-half) tablets by Enteral Tube route every morning 30 tablet 03/01/2023 03/14/2023 cloBAZam (Onfi) 20 MG tablet 1 (one) tablet by Enteral Tube route every evening 15 tablet 02/28/2023 03/14/2023 lacosamide (VIMPAT) 200 MG tablet Take 1 tablet by mouth 2 times daily for 30 days 60 tablet 5 05/16/2019 06/28/2023 levETIRAcetam (Keppra) 1000 MG tablet 2 (two) tablets by Enteral Tube route 2 times daily 120 tablet 02/28/2023 06/28/2023 valproic acid (Depakene) 250 MG/5ML solution 10 mL by Per G Tube route 4 times daily 200 mL 02/28/2023 06/28/2023 documented as of this encounter Progress Notes * Marcella Calderon, DISPLAY DESIGNER - 02/28/2023 3:23 PM CDT [facility] Passy Lucius Valve Follow-Up Patient: Bi Tabor [facility] Record Number: [id number] Date of :: 1960 Age: [age] year old In addition to the 1:1 evaluation of the patient, additional eval time was spent completing the chart review prior to the assessment, completing the multidisciplinary plan of care and education plan post evaluation and communicating results of the eval to other treatment team members. PPE: PPE donned by DISPLAY DESIGNER during this session - Procedure mask, disposable gown and gloves. Impressions: Pt continues to present with adequate tolerance of PMV without any change in vitals orconcern for air trapping during PMV use. Recommend use of PMV during waking hours as Pt tolerates, DISPLAY DESIGNER will d/c given further follow up for PMV does not appear warranted given Pt continues to tolerate without concerns. PMV Recommendations: Recommend use of PMV during waking hours Discharge Recommendations: Patient will benefit from inpatient multidisciplinary therapies Subjective: Mental Status: Alert and responsive Pain: Patient denied pain Follow-up for pain: No follow-up for pain indicated and patient agreed to proceed with treatment Objective: Tracheostomy Tube: Bivona #6 trach, cuff deflated at baseline Breathing Status: RA Baseline spO2: 98% Phonation with finger occlusion: yes Voice quality: Decreased intensity Patient was educated re: effects of trach on phonation and the need for finger occlusion or PMV useto achieve voicing and improve communicative function. Assessment: PMV was placed by DISPLAY DESIGNER and patient was observed wearing valve for approximately 15 minutes. Pt's SPO2 ranged between 96-100% during PMV trials without any change in visible respirations. Vocal qualitywith PMV in place was more intense and intelligible when compared with finger occlusion. Patient did not exhibit any change in respirations and did not complain of any shortness of breath. Will continue to recommend use of PMV during waking hours at this time. Education: Patient instructed in recommedations and indicated understanding. Goals: Short Term Goals: Patient to achieve phonation with Passy Bingham Valve while on tracheostomy. Assisted Goal(s): Patient to be independent/baseline with speech/language/cognitive/swallowing to be able to safely discharge to prior level of care. If patient is discharged from the facility, this note serves as a discharge note if further speech therapy visits did not occur. Marcella Scherer M.S., CCC-DISPLAY DESIGNER Speech Language Pathologist [phone] * Niraj Juarez MSW - 02/28/2023 2:46 PM CDT Facility Transfer Note Level of Care: Senior Care/Assisted Care Payor Source: Medicaid Facility Name: (include name of person confirming admission): [facility] Made Aware of Special Needs (if applicable): Yes RN Call Report to: [phone] 500 Osmany RN RN Fax D/C Orders to: [phone] Transportation: [facility] Certificate of Medical Necessity rationale: letter completed Date/time of transfer: 02/28/2023 ETA 5:00pm trip# [id number] Accepting MD: Dr. Restrepo Completed and Signed [id number] (if applicable): n/a Family/Other Notified of Transfer (name/phone): Extended Emergency Contact Information Primary Emergency Contact: Adriane Hilliard Mobile Relation: Sister Cost Accounting Analyst needed? No Secondary Emergency Contact: Amarjit Tabor [facility] Relation: Brother Authorization Skilled Care: n/a Authorization for Transportation: PCS completed and netspap Verified Qualifying Stay(Skilled Only): NOT APPLICABLE Comments: ASHWIN spoke with Uma with [facility] and confirmed they are able to accept the patient for discharge today. The patient will be transported via EMS. ASHWIN attempted to contact the patients sister regarding dc but was unable to leave a . CLARITA Jennings p# [phone] * Paige Brewster MD - 02/28/2023 1:32 PM CDT U HOSPITALIST PROGRESS NOTE Age/Sex: 63 year old male Hospital Day: 5 Admission Date: 02/23/2023 Subjective: Sleep but woke up. Look comfortable No concern per the nurse Objective: Patient Vitals for the past 24 hrs: Temp Pulse Resp BP SpO2 O2 % (FiO2) 02/28/23 1323 97.7 ??F (36.5 ??C) 53 14 146/81 98 % -- 02/28/23 1119 -- -- -- -- 98 % -- 02/28/23 0814 97.7 ??F (36.5 ??C) 60 22 129/71 100 % -- 02/28/23 0404 -- -- 18 -- 96 % -- 02/28/23 0325 97.3 ??F (36.3 ??C) 65 18 151/77 96 % -- 02/28/23 0056 -- 71 18 -- 99 % 28 % 02/27/23 2335 97.7 ??F (36.5 ??C) 73 18 133/69 97 % -- 02/27/23 2100 -- -- 16 -- 99 % -- 02/27/23 1935 97.5 ??F (36.4 ??C) 65 16 110/72 99 % -- 02/27/23 1739 -- 69 -- -- 98 % -- 02/27/23 1641 97.9 ??F (36.6 ??C) 66 22 161/80 97 % -- Physical exam: General: alert, nonverbal, no distress HEENT: on trach Lungs: breath sounds normal; breathing comfortably Heart: regular rate and rhythm, no murmurs/rubs/gallops Abdomen: soft, non-tender, non-distended. Skin: No rashes noted Extremities: no edema MSK: L AKA Neuro: Alert, but couldn't follow command on my exam Recent lab reviewed as below: Recent Labs Component Name 02/28/23 0541 02/27/23 0427 02/25/23 0434 03/09/22 0135 03/08/22 1455 WBC 5.4 5.9 4.7 - 20.8* PLATELET - - - - Occasional* - = values in this interval not displayed. Recent Labs Component Name 02/28/23 0541 02/27/23 0427 02/26/23 1619 POTASSIUM 4.7* 4.6* 4.3 CO2 27 26 26 BUN 9 11 9 CREATININE 0.41* 0.42* 0.38* GLUCOSE 83 94 114 CALCIUM 9.2 8.8 9.3 Recent Labs Component Name 02/24/23 1032 12/31/22205212/13/22 0146 INR 1.1 1.1 1.0 No results found for: CK, TROPONIN, GXHGQNPE1P, CKMBRI TSH Date Value Ref Range Status 01/01/2023 2.578 0.350 - 4.940 uIU/mL Final Medications: 0.9% NaCl, 3 mL, q8h artificial tears, , q8h aspirin, 81 mg, QDAY atorvastatin, 40 mg, AT BEDTIME cloBAZam, 15 mg, QAM cloBAZam, 20 mg, QPM enoxaparin, 40 mg, QDAY famotidine, 20 mg, BID folic acid, 1 mg, QDAY guaiFENesin, 15 mL, Every 6 Hours (03,,,) lacosamide, 200 mg, BID levETIRAcetam, 2,000 mg, BID metoprolol tartrate IR, 25 mg, BID polyethylene glycol 3350, 17 g, BID senna, 8.6 mg, QDAY thiamine, 100 mg, QDAY valproic acid, 500 mg, 4X/day Problem list: History of CVA (cerebrovascular accident) (POA: Yes) Essential (primary) hypertension (POA: Yes) Seizure disorder (CMS/HCC) (POA: Yes) Chronic respiratory failure with hypoxia (CMS/HCC) (POA: Yes) Dementia, vascular (CMS/HCC) (POA: Yes) Tracheostomy in place (CMS/HCC) (POA: Yes) PEG tube malfunction (CMS/HCC) (POA: Yes) Aspiration into airway, subsequent encounter (POA: Yes) Assessment and Plan: ?? GJ malfunction - s/p replacement 02/25 - suspect some degree of malnutrition, nutrition on board - IR 02/25 replaced, TFs resumed ?? 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 If worsening hypoxia would treat broadly given MDRO history and COVID swab. - weaned down to RA today 02/28 ?? Epilepsy - resume prior regimen per tube, clobazam, lacosamide, keppra, valproate ?? HTN HL Hx of intraop VT - continue home metop. ?? Hx CVA/vascular dementia - home ASA/statin ?? Constipation - miralax, senna ?? Hx EtOH use - thiamine, folate ?? DVT ppx: lovenox Diet: TFs Bowel: senna/miralax PT/OT: at baseline, return to prior facility Lines: GJ tube, PIV Dispo: back to [facility] Code: Full Code ?? Paige Brewster MD [facility] Medicine 02/28/2023 READMISSION RISK SCORE at discharge was 27.8 (02/28/2023 1:15 PM) * Jose M Gomez RN - 02/28/2023 1:01 PM CDT Care Coordination Progress Note Anticipated level of care at discharge: Correction - Medicaid: Anticipated level of care provider: [facility] ([facility] and [facility]): Anticipated Discharge Date: 02/28/23: Discharge Plan: Patient is new to my service. Discharge needs dependent on response to clinical treatment and therapy recommendations. CM will continue to follow. [facility]. See notes for placement details. Orientation Level: Oriented to Person;Oriented to Place;Disoriented to Situation;Disoriented to Time: Family Support (Name and Phone): Extended Emergency Contact Information Primary Emergency Contact: Adriane Hilliard Mobile Relation: Sister Cost Accounting Analyst needed? No Secondary Emergency Contact: Amarjit Tabor [facility] Relation: Brother Transportation at Discharge: Medicaid Provider: READMISSION RISK SCORE is 28 at 1:01 PM 02/28/2023.: Name: Jose M Gomez RN [phone] * Adrianne Marie RN - 02/28/2023 11:22 AM CDT This nurse accessed the need for oxygen. Patient was weened down to RA. Statting 98-100%.Trach humidified mask removed. Cont pulse ox applied. Care conts. Paged Doc Hazam about this. * Adrianne Marie RN - 02/28/2023 9:53 AM CDT Problem: Skin Integrity Goal: Skin integrity is maintained or improved Outcome: Progressing Problem: Fall Risk Goal: Fall risk and fall related injury risk are minimized (interventions related to the fall risk can be found in the flowsheet documentation) Outcome: Progressing Problem: Oral Intake: Inadequate oral intake Goal: Enteral/parenteral nutrition prescription will be consistent with estimated needs Outcome: Progressing Problem: Pain/Discomfort Goal: Patient exhibits reduced pain/discomfort as evidenced by pain scores Outcome: Progressing Goal: Patient uses pharmacological and non-pharmacological pain management strategies. Outcome: Progressing Goal: Patient verbalizes acceptable level of pain relief and ability to engage in desired activity. Outcome: Progressing * Mara Jolly RN - 02/27/2023 10:59 PM CDT Problem: Skin Integrity Goal: Skin integrity is maintained or improved Outcome: Progressing Problem: Fall Risk Goal: Fall risk and fall related injury risk are minimized (interventions related to the fall risk can be found in the flowsheet documentation) Outcome: Progressing * Deandre Cisneros PT - 02/27/2023 2:20 PM CDT [facility] Department of Physical Medicine & Rehabilitation Progress Note Patient: Bi Tabor [facility] Record Number: [id number] Date of : 1960 Age: [age] year old New PT orders received. Per chart review of previous admissions, pt is from NH and is dependent at baseline for mobility and no skilled intervention is indicated at this time. Will d/c from caseload.?? * Mara Sapp OT - 02/27/2023 1:36 PM CDT [facility] Department of Physical Medicine & Rehabilitation Progress Note Patient: Bi Tabor [facility] Record Number: [id number] Date of : 1960 Age: [age] year old New OT orders received. Per chart review of previous admissions, pt is from NH and is dependent at baseline for ADLs and mobility and no skilled intervention is indicated at this time. Will d/c from caseload. * Michaela Garcia RN - 02/27/2023 10:37 AM CDT Problem: Skin Integrity Goal: Skin integrity is maintained or improved Outcome: Progressing Problem: Fall Risk Goal: Fall risk and fall related injury risk are minimized (interventions related to the fall risk can be found in the flowsheet documentation) Outcome: Progressing Problem: Oral Intake: Inadequate oral intake Goal: Enteral/parenteral nutrition prescription will be consistent with estimated needs Outcome: Progressing Problem: Pain/Discomfort Goal: Patient exhibits reduced pain/discomfort as evidenced by pain scores Outcome: Progressing Goal: Patient uses pharmacological and non-pharmacological pain management strategies. Outcome: Progressing Goal: Patient verbalizes acceptable level of pain relief and ability to engage in desired activity. Outcome: Progressing * Cami Worthington MD - 02/27/2023 7:18 AM CDT [facility] INTERNAL MEDICINE PROGRESS NOTE Patient: Bi Tabor Sex: male Age: [age] year old Date of : 1960 Date of Admission: 02/23/2023 Date: 02/27/2023 LOS: 3 SUBJECTIVE Interval History: 02/26 primary team started pt on cefe/flagyl, procal remains unremarkable. Due to suctioning needs and more frequent RN attention needed, transfer order to main hospital was placed yesterday and remains in place. 02/26 CXR reviewed, pt significantly rotated, no clear consolidation in left lung, appears some atelectasis of RLL on my read. No leukocytosis, increased O2 requirements, significantly worsening secretions, fever, will dc cefe/flagyl at this time. Hospital Course: 63F w PMH of HTN, HL, chronic respiratory failure s/p trach, multiple CVAs/vascular dementia, epilepsy, hx of MDRO aspiration PNA, Zenker diverticulum, PAD s/p L AKA due to nonhealing foot wound (02/2022), was admitted for GJ tube dysfunction 02/23/23, which IR exchanged 02/25. Neurology was consulted for IV AED recommendations prior to GJ tube replacement. PEG tube was replaced by IR 02/25, IV medications switched to per tube on 02/26 and TFs initiated. 02/26 there was concern due to increased suctioning that pt had aspiration PNA and was started on cefe/flagyl. Of note pt had trans-cervical Zenker's diverticulectomy, trach on 07/15/22. Was readmitted -10/2022 for HCAP from Pseudomonas aeruginosa??and Acinetobacter baummannii. SCx grew MRSA/pseudomonas, UCx with pseudomonas, pt had mucus plugging, and weaned off ventilation in the ICU and was transferred back to the floor. He was then readmitted 11/24-12/16/22 for bleeding from trach and underwent R maxillary antrostomy w polypectomy and R anterior ethmoidectomy on 11/26/22. During that admission he had VAP treated with cefepime and supposedly had intra- operative transient vtach for which he was started on metoprolol. Again readmitted 12/31-01/14 for concerns of status, where he was found to have pseudomon as and actinobacter SCx at [facility]. OBJECTIVE Vital Signs: Vitals: 02/26/23 1642 02/26/23 1659 02/26/23201502/27/23 0320 BP: 148/95 142/83 153/83 Pulse: 95 103 82 89 Resp: 17 18 20 Temp: 97.9 ??F (36.6 ??C) 98.2 ??F (36.8 ??C) 98.8 ??F (37.1 ??C) SpO2: 96% 100% 99% 96% Weight: Height: Temp Min: 97.3 ??F (36.3 ??C) Max: 98.8 ??F (37.1 ??C), Pulse Min: 45 Max: 110, Resp Min: 14 Max: 20, BP Min: 109/70 Max: 170/96 Intake & Output: In: - Out: 1450 [Urine:1450] Physical Exam: Physical Exam Constitutional: General: He is not in acute distress. HENT: Mouth/Throat: Mouth: Mucous membranes are moist. Eyes: Extraocular Movements: Extraocular movements intact. Conjunctiva/sclera: Conjunctivae normal. Pupils: Pupils are equal, round, and reactive to light. Cardiovascular: Rate and Rhythm: Normal rate and regular rhythm. Pulses: Normal pulses. Heart sounds: No murmur heard. Pulmonary: Breath sounds: Normal breath sounds. No stridor. Comments: upper airway secretion sounds, humidified trach collar in place Abdominal: General: Abdomen is flat. There is no distension. Palpations: Abdomen is soft. Comments: GJ tube in place Musculoskeletal: General: No swelling or tenderness. Cervical back: Normal range of motion. Skin: General: Skin is warm and dry. Comments: Kandi AKShiloh Neurological: Mental Status: He is alert. At times mouths answers but difficult to understand sometimes without PMV and due to secretions. Able to squeeze hands b/l. Current Medications: Scheduled: ??? 0.9% NaCl 3 mL Intracatheter q8h ??? artificial tears Each Eye q8h ??? aspirin 81 mg Enteral Tube QDAY ??? atorvastatin 40 mg Enteral Tube AT BEDTIME ??? cefepime 2 g Intravenous q8h ??? cloBAZam 15 mg Enteral Tube QAM ??? cloBAZam 20 mg Enteral Tube QPM ??? enoxaparin 40 mg Subcutaneous QDAY ??? folic acid 1 mg Enteral Tube QDAY ??? guaiFENesin 15 mL Enteral Tube Every 6 Hours (03,09,15,21) ??? lacosamide 200 mg Enteral Tube BID ??? levETIRAcetam 2,000 mg Enteral Tube BID ??? metoprolol tartrate IR 25 mg Enteral Tube BID ??? metroNIDAZOLE 500 mg Enteral Tube q8h ??? thiamine 100 mg Enteral Tube QDAY ??? valproic acid 500 mg Enteral Tube 4X/day Continuous: PRN: ??? SALINE LOCK, INSERT AND MAINTAIN AND 0.9% NaCl AND 0.9% NaCl Significant Lab Results: WBC 5.9, procal <0.02 on 02/23/23 Microbiology: 02/27 f/u SCx Imaging & Studies: CXR 02/26/23 Tracheostomy tube terminates in the midthoracic trachea. Right lower lung atelectasis and sequela of aspiration. No visible pleural effusion or pneumothorax. The cardiomediastinal silhouette is shifted to the right ASSESSMENT & PLAN History of CVA (cerebrovascular accident) (POA: Yes) Essential (primary) hypertension (POA: Yes) Seizure disorder (CMS/HCC) (POA: Yes) Chronic respiratory failure with hypoxia (CMS/HCC) (POA: Yes) Dementia, vascular (CMS/HCC) (POA: Yes) Tracheostomy in place (CMS/HCC) (POA: Yes) PEG tube malfunction (CMS/HCC) (POA: Yes) Aspiration into airway, subsequent encounter (POA: Yes) #GJ malfunction s/p replacement 02/25 - suspect some degree of malnutrition, nutrition on board - IR 02/25 replaced, ok to use now, TFs resumed #c/f aspiration PNA #chronic hypoxic respiratory failure s/p trach - has hx of multiple aspiration events, per last ID note 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 If worsening hypoxia would treat broadly given MDRO history and COVID swab. #epilepsy - resume prior regimen per tube, clobazam 15mg AM/20mg PM, lacosamide 200mg bid, keppra 2000mg bid,valproate 500mg 4x/d #HTN #HL #?hx of intraop VT - home metop tart 25bid #Hx CVA/vascular dementia - home ASA/statin #Constipation - miralax, senna #Hx EtOH use - thiamine, folate DVT ppx: lovenox GI ppx: n/a Diet: TFs Bowel: senna/miralax PT/OT: at baseline, return to prior facility Lines: GJ tube, PIV Dispo: back to [place] Code: Code Status: Full Code Cami Worthington MD [facility] 02/27/2023 7:18 AM * Araceli Almanza RN - 02/26/2023 10:46 PM CDT Problem: Skin Integrity Goal: Skin integrity is maintained or improved Outcome: Progressing Problem: Fall Risk Goal: Fall [...] to engage in desired activity. Outcome: Progressing * Westley Corley MD - 02/26/2023 4:35 PM CDT Pt requiring a lot of suctioning an RN/RT attention. Per nursing (due to staffing) would prefer pt to be in the main hospital. Discussed with med admissions. In the mean time care plan CXR VBG, BMP, bronchial hygiene, sputum sample, IV Abx Westley Corley MD * Westley Corley MD - 02/26/2023 1:57 PM CDT Hospitalist Daily Progress Note Name: Bi Tabor Age: [age] year old Room: [facility] Date Admitted: 02/23/2023 Subjective: Pt is awake. Looks comfortable. Per nursing producing a lot of thick secretions and requiring multiple suctions Current Facility-Administered Medications Medication Dose Route Frequency Provider Last Rate Last Admin ??? 0.9% NaCl injection 3 mL 3 mL Intracatheter q8h Ankur Coombs, DO 3 mL at 02/26/23 0441 And ??? 0.9% NaCl injection 1-10 mL 1-10 mL Intracatheter PRN Ankur Coombs, DO ??? artificial tears ophthalmic ointment Each Eye q8h Ritesh Kinsey MD Given at 02/26/23 0441 ??? aspirin chew tablet 81 mg 81 mg Enteral Tube QDAY Westley Corley MD 81 mg at 02/26/23 0907 ??? atorvastatin (Lipitor) tablet 40 mg 40 mg Enteral Tube AT BEDTIME Westley Corley MD ??? cefepime (Maxipime) 2,000 mg in 0.9% NaCl IV 50 mL IVPB 2 g Intravenous q8h Westley Corley MD ??? cloBAZam (Onfi) tablet 15 mg 15 mg Enteral Tube QAM Westley Corley MD 15 mg at 02/26/23 1042 ??? cloBAZam (Onfi) tablet 20 mg 20 mg Enteral Tube QPM Westley Corley MD ??? enoxaparin (Lovenox) injection 40 mg 40 mg Subcutaneous QDAY Jennifer Cameron PA-C 40 mg at 02/26/23 0907 ??? folic acid (Folvite) tablet 1 mg 1 mg Enteral Tube QDAY Westley Corley MD 1 mg at 02/26/23 0908 ??? lacosamide (Vimpat) tablet 200 mg 200 mg Enteral Tube BID Westley Corley MD 200 mg at 02/26/23 0907 ??? levETIRAcetam (Keppra) tablet 2,000 mg 2,000 mg Enteral Tube BID Westley Corley MD 2,000 mg at 02/26/23 0907 ??? metoprolol tartrate IR (Lopressor) tablet 25 mg 25 mg Enteral Tube BID Westley Corley MD 25 mg at02/26/23 0907 ??? metroNIDAZOLE (Flagyl) tablet 500 mg 500 mg Oral q8h Westley Corley MD ??? thiamine (Vitamin B-1) tablet 100 mg 100 mg Enteral Tube QDAY Westley Corley MD 100 mg at 02/26/23 0907 ??? valproic acid (Depakene) solution 500 mg 500 mg Enteral Tube 4X/day Alayna Zaldivar, PharmD 500 mg at 02/26/23 1126 Wt Readings from Last 3 Encounters: 02/25/23 71.5 kg (157 lb 10.1 oz) 01/14/23 71.5 kg (157 lb 10.1 oz) 12/16/22 72.4 kg (159 lb 11.2 oz) Vitals: Vital signs reviewed. BP 133/80 Pulse 96 Temp 98.4 ??F (36.9 ??C) (Oral) Resp 17 Ht 1.778 m (5' 10 ) Wt 71.5 kg(157 lb 10.1 oz) SpO2 93% PE: Physical Exam Vitals reviewed. Constitutional: Appearance: Normal appearance. Comments: lethargic HENT: Head: Normocephalic. Mouth/Throat: Mouth: Mucous membranes are moist. Eyes: Extraocular Movements: Extraocular movements intact. Pupils: Pupils are equal, round, and reactive to light. Neck: Comments: Trach collar in place Cardiovascular: Rate and Rhythm: Normal rate and regular rhythm. Pulses: Normal pulses. Heart sounds: Normal heart sounds. Pulmonary: Effort: Pulmonary effort is normal. Breath sounds: Normal breath sounds. Abdominal: General: Bowel sounds are normal. Palpations: Abdomen is soft. Comments: PEG present, clean , dry and no sign of infection Musculoskeletal: General: No swelling or tenderness. Comments: LEFT BKA Left side weakness Skin: General: Skin is warm. Neurological: General: No focal deficit present. Mental Status: He is alert. Mental status is at baseline. Labs: CBC: Recent Labs Lab Units 02/25/23 0434 02/24/23 0636 02/23/23 0535 WBC 10??3/uL 4.7 7.1 6.1 RBC 10??6/uL 4.18* 4.09* 4.00* HGB g/dL 13.3 12.8 12.3 HCT % 39.6 39.7 38.0 BMP: Recent Labs Lab Units 02/25/23 0434 02/24/23 1032 02/23/23 0535 NA mmol/L 138 137 137 CL mmol/L 109* 107 103 CO2 mmol/L 21* 24 28 BUN mg/dL 9 9 12 CREATININE mg/dL 0.46* 0.44* 0.54* CALCIUM mg/dL 9.5 9.6 10.1 Magnesium: No results for input(s): MG in the last 168 hours. Phosphorus: Recent Labs Lab Units 02/25/23 0434 02/24/23 0636 02/23/23 0535 PHOS mg/dL 3.1 3.6 3.0 Coagulation: Recent Labs Lab Units 02/24/23 1032 PT Seconds 14.1 INR 1.1 Endocrine: No results for input(s): TSH, A1C in the last 168 hours. LFTs: Recent Labs Lab Units 02/25/23 0434 02/23/23 0535 AST U/L -- 17 ALT U/L -- 7 TBILI mg/dL -- 0.2 ALB g/dL 2.5* 2.7* Micro: Microbiology Results (Displays last 21 days for this encounter ONLY) Procedure Component Value - Date/Time CULTURE SPUTUM+GRAM STAIN [[id number]] Lab Status: No result Specimen: Microbiology from Sputum Trach/Endo Imaging: XR ABD OBSTR SERIES W CHEST 1VW [...] verification. Report dictated by Ashu Welch M.D. (certified prosthetist vice president) 02/23/2023 4:31 AM Rachel Thomason MD have personally reviewed and [...] verification. > Dictated by Nash Arreola MD (certified prosthetist vice president). IBebo MD have personally reviewed and interpreted this examination/study. > Interpreting Provider: Bebo Kuo MD on 02/23/2023 8:19 AM Problem List: History of CVA (cerebrovascular accident) (POA: Yes) Essential (primary) hypertension (POA: Yes) Seizure disorder (CMS/HCC) (POA: Yes) Chronic respiratory failure with hypoxia (CMS/HCC) (POA: Yes) Dementia, vascular (CMS/HCC) (POA: Yes) Tracheostomy in place (CMS/HCC) (POA: Yes) PEG tube malfunction (CMS/HCC) (POA: Yes) Aspiration into airway, subsequent encounter (POA: Yes) Assessment and Plan: PEG tube dysfunction, resolved -IR replaced PEG 02/25 -Can start using it as soon as changed per IR recommendation Chronic hypoxic respiratory failure s/p tracheostomy Possible Aspiration pneumonia -Hx of multiple aspiration events -got 1 dose of Ceftriaxone and flagyl on admission. CT concerning for aspiration however clinicallypt as baseline with no more O2 requirement and procal negative so IV Abx were d/c by primary team then Pt is HD stable, baseline O2 req, no WBC elevation, get CXR, repeat Procal, get sputum Cx. If concern for aspiration PNA start IV Abx -Continue with Suction q 4h PRN Epilepsy -Hospitalized with status epilepticus in -Neurology following -Home regimen: Onfi, Vimpat. Keppra, Depakene -Seizure precaution Hx of CVA Vascular dementia -Home meds ASA and statin HTN HLD -Home Meds statin resumed Hx of alcohol abuse -Home Thiamine and folate lace Inpatient Checklist -LDA: PIV, PEG -Antibiotic end date:as above -Consults:IR, Neurology -DVT:Lovenox -Diet:NPO -Code: Full -Dispo:In patiet Westley Corley MD Date of service: 02/26/2023 Attending Physician: Westley Corley MD * Mariajose Odell RN - 02/26/2023 9:47 AM CDT Problem: Skin Integrity Goal: Skin integrity is maintained or improved Outcome: Progressing Problem: Fall Risk Goal: Fall [...] to engage in desired activity. Outcome: Progressing * Herminio Ivy MD - 02/26/2023 8:07 AM CDT Vascular & Interventional Radiology Progress Note Admit date: 02/23/2023 Hospital Day: 4 Subjective: HPI: 63 year old male with medical hx of CHRF, CVA, dementia, dysphagia with recurrent aspiration and gastroparesis despite g tube who previously underwent VIR image-guided G to GJ conversion on 12/14. ?? Pt was recently hospitalized at an OSH for seizures, pt was medically stable for dishcarge on 01/14but noted to have clogged jejunostomy tube. Unable to exchange at OSH, VIR at [facility] contacted for exchange and scheduled for 02/24. ?? Pt presented to [facility] for clogged jejunostomy tube this AM. VSS. +trach collar, family at bedside. Several attempts made to unclog jejunostomy prior without success. ?? VIR consulted for evaluation of gastrojejunostomy exchange. The patient underwent gastrojejunostomy exchange on 02/25/23 (POD#1). Interval history: No acute interval changes. Tube feeds running through GJ tube without leak. Objective: Physical examination: BP 154/91 Pulse 78 Temp 97.5 ??F (36.4 ??C) (Oral) Resp 16 Ht 1.778 m (5' 10 ) Wt 71.5 kg(157 lb 10.1 oz) SpO2 90% Estimated body mass index is 22.62 kg/m?? as calculated from the following: Height as of this encounter: 1.778 m (5' 10 ). Weight as of this encounter: 71.5 kg (157 lb 10.1 oz). General: NAD HEENT: atraumatic, no jaundice, no scleral icterus Lungs: normal respiratory effort CV: regular rate Abdomen: soft, nontender, nondistended, GJ site CDI with tube feeds running Psych: Awake Laboratory results: Recent Labs Component Name 02/25/23 0434 02/24/23 0636 02/23/23 0535 01/14/23 0424 01/13/23 0432 03/09/22 0135 03/08/22 1455 WBC 4.7 7.1 6.1 6.8 7.6 - 20.8* HGB 13.3 12.8 12.3 11.0* 11.0* - 14.3 HCT 39.6 39.7 38.0 34.4* 34.5* - 42.9 PLTCOUNT - - 138* 186 186 - 211 PLATELET - - - - - - Occasional* - = values in this interval not displayed. Recent Labs Component Name 02/24/23 1032 12/31/22 2053 12/13/22 0146 INR 1.1 1.1 1.0 Recent Labs Component Name 02/25/23 0434 02/24/23 1032 02/23/23 0535 NA 138 137 137 GLUCOSE 77 96 82 CREATININE 0.46* 0.44* 0.54* EGFR >90 >90 >90 Recent Labs Component Name 02/25/23 0434 02/23/23 0535 01/14/23 0424 01/13/23 0432 ALB 2.5* 2.7* 2.6* 2.6* TBILI - 0.2 0.2 0.2 ALT - 7 7 8 AST - 17 13 11 ALKPHOS - 90 77 81 Medications: Scheduled: ??? 0.9% NaCl 3 mL Intracatheter q8h ??? artificial tears Each Eye q8h ??? clonazePAM (disintegrating) 1 mg Sublingual BID ??? enoxaparin 40 mg Subcutaneous QDAY ??? lacosamide 200 mg Intravenous BID ??? levETIRAcetam 2,000 mg Intravenous q12h ??? valproate 500 mg Intravenous q6h PRN: ??? SALINE LOCK, INSERT AND MAINTAIN AND 0.9% NaCl AND 0.9% NaCl Infusions: Imaging: IR PERC G TO GJ TUBE EXCHANGE Result Date: 02/25/2023 Impression: Successful exchange of the existing 18 Tanzanian gastrojejunostomy catheter for a new 18 Tanzanian gastrojejunostomy catheter under fluoroscopic guidance, as described [...] verification. Report dictated by Ashu Welch M.D. (certified prosthetist vice president) 02/23/2023 4:31 AM Rachel Thomason MD have personally reviewed and [...] verification. > Dictated by Nash Arreola MD (certified prosthetist vice president). IBebo MD have personally reviewed and interpreted this examination/study. > Interpreting Provider: Bebo Kuo MD on 02/23/2023 8:19 AM Assessment: 63 year old male with a history of epilepsy, chronic hypoxic respiratory failure s/p trach, HTN, HLD, prior CVAs, and vascular dementia presenting with GJ tube dysfunction now status post exchange on02/25/23. GJ tube is functioning without evidence of jessi-catheter leakage. Plan: - No acute IR intervention indicated - Do not place dressing underneath the round rubber retention device. - In case of abdominal distension, discomfort, or feeding intolerance, stop feeding and call the IRservice immediately. Contact IR if there is pericatheter leakage or if the catheter is inadvertently pulled out. The IR attending, Dr. Méndez, is in agreement with the above recommendations. Herminio Ivy MD Vascular & Interventional Radiology 02/26/2023 8:07 AM * Araceli Almanza RN - 02/25/2023 11:26 PM CDT Problem: Skin Integrity Goal: Skin integrity is maintained or improved Outcome: Progressing Problem: Fall Risk Goal: Fall risk and fall related injury risk are minimized (interventions related to the fall risk can be found in the flowsheet documentation) Outcome: Progressing Problem: Oral Intake: Inadequate oral intake Goal: Enteral/parenteral nutrition prescription will be consistent with estimated needs Outcome: Progressing Problem: Pain/Discomfort Goal: Patient exhibits reduced pain/discomfort as evidenced by pain scores Outcome: Progressing Goal: Patient uses pharmacological and non-pharmacological pain management strategies. Outcome: Progressing Goal: Patient verbalizes acceptable level of pain relief and ability to engage in desired activity. Outcome: Progressing * Bhavesh Easley MD - 02/25/2023 7:09 PM CDT Hospital Medicine Plan of Care Patient seen at bedside after arrival to [facility]. Patient appeared comfortable without complaint. New enteral tube in place. Discussed with primary team from [facility] - REBECCA Cameron. Will stop IVF and start tube feeds in line with nutrition recommendations (osmolite 1.2). Continue IV medications for now and will need to transition to per tube prior to discharge. Please see REBECCA Cameron's note from 6:12 on 02/25/23 for full plan of care for the day. Bhavesh Easley MD 02/25/2023 * Jennifer Cameron PA-C - 02/25/2023 6:12 PM CDT Hospitalist Daily Progress Note Name: Bi Tabor Age: [age] year old Room: [facility] [place] Date Admitted: 02/23/2023 Hospital Course: Bi Tabor is a 63 year old male with past medical history of HTN, HLD, hx of CVA, vascula dementia chronic hypoxic respiratory failure and epilepsy who presented to [facility] on 02/23 due due PEG tube malfunction. Neurology was consulted to to the history of epilepsy ad the recent hospitalization due to status epilepticus and patient was restarted on the recommended regimen to prevent seizures. IR was consulted for placing a new PEG tube, which was done today 02/25 and PEG tube is ready to be used. Subjective: Patient was seen and examined at bedside. He had the trach collar on and satting at 100 %. He was awake, interacting to some instructions, however not able to answer to questions. Current Facility-Administered Medications Medication Dose Route Frequency Provider Last Rate Last Admin ??? 0.9% NaCl injection 3 mL 3 mL Intracatheter q8h Ankur Coombs, DO 3 mL at 02/25/23 1353 And ??? 0.9% NaCl injection 1-10 mL 1-10 mL Intracatheter PRN Ankur Coombs, DO ??? artificial tears ophthalmic ointment Each Eye q8h Ritesh Kinsey MD Given at 02/25/23 1352 ??? clonazePAM (disintegrating) (KlonoPIN Wafer) tablet 1 mg 1 mg Sublingual BID Ritesh Kinsey MD 1 mg at 02/25/23 1043 ??? dextrose 5 % and lactated ringers infusion Intravenous Continuous Ritesh Kinsey MD 75 mL/hrat 02/25/23 1042 New Bag at 02/25/23 1042 ??? lacosamide (Vimpat) injection 200 mg 200 mg Intravenous BID Ritesh Kinsey MD 200 mg at 02/25/23 1044 ??? levETIRAcetam (Keppra) 2,000 mg in 0.9% NaCl IV 270 mL IVPB 2,000 mg Intravenous q12h Ritesh Kinsey MD Stopped at 02/25/23 1329 ??? magnesium sulfate 2 g in 50 mL bolus 2 g Intravenous Once Jennifer Cameron PA-C 25 mL/hr at 02/25/23 1807 2 g at 02/25/23 1807 ??? valproate (Depacon) 500 mg in 0.9% NaCl IV 55 mL IVPB 500 mg Intravenous q6h ValerieL. Kimberly, PharmD Wt Readings from Last 3 Encounters: 02/25/23 71.5 kg (157 lb 10.1 oz) 01/14/23 71.5 kg (157 lb 10.1 oz) 12/16/22 72.4 kg (159 lb 11.2 oz) Vitals: Vital signs reviewed. BP 163/88 Pulse 81 Temp 97.3 ??F (36.3 ??C) (Axillary) Resp 14 Ht 1.778 m (5' 10 ) Wt 71.5 kg (157 lb 10.1 oz) SpO2 100% PE: Physical Exam Vitals reviewed. Constitutional: Appearance: Normal appearance. Comments: lethargic HENT: Head: Normocephalic. Mouth/Throat: Mouth: Mucous membranes are moist. Eyes: Extraocular Movements: Extraocular movements intact. Pupils: Pupils are equal, round, and reactive to light. Neck: Comments: Trach collar in place Cardiovascular: Rate and Rhythm: Normal rate and regular rhythm. Pulses: Normal pulses. Heart sounds: Normal heart sounds. Pulmonary: Effort: Pulmonary effort is normal. Breath sounds: Normal breath sounds. Abdominal: General: Bowel sounds are normal. Palpations: Abdomen is soft. Comments: PEG present, clean , dry and no sign of infection Musculoskeletal: General: No swelling or tenderness. Comments: LEFT BKA Left side weakness Skin: General: Skin is warm. Neurological: General: No focal deficit present. Mental Status: He is alert. Mental status is at baseline. Labs: CBC: Recent Labs Lab Units 02/25/23 0434 02/24/23 0636 02/23/23 0535 WBC 10??3/uL 4.7 7.1 6.1 RBC 10??6/uL 4.18* 4.09* 4.00* HGB g/dL 13.3 12.8 12.3 HCT % 39.6 39.7 38.0 BMP: Recent Labs Lab Units 02/25/23 0434 02/24/23 1032 02/23/23 0535 NA mmol/L 138 137 137 CL mmol/L 109* 107 103 CO2 mmol/L 21* 24 28 BUN mg/dL 9 9 12 CREATININE mg/dL 0.46* 0.44* 0.54* CALCIUM mg/dL 9.5 9.6 10.1 Magnesium: No results for input(s): MG in the last 168 hours. Phosphorus: Recent Labs Lab Units 02/25/23 0434 02/24/23 0636 02/23/23 0535 PHOS mg/dL 3.1 3.6 3.0 Coagulation: Recent Labs Lab Units 02/24/23 1032 PT Seconds 14.1 INR 1.1 Endocrine: No results for input(s): TSH, A1C in the last 168 hours. LFTs: Recent Labs Lab Units 02/25/23 0434 02/23/23 0535 AST U/L -- 17 ALT U/L -- 7 TBILI mg/dL -- 0.2 ALB g/dL 2.5* 2.7* Micro: Microbiology Results (Displays last 21 days for this encounter ONLY) No results found for the last 504 hours. Imaging: XR ABD OBSTR SERIES W CHEST 1VW [...] verification. Report dictated by Ashu Welch M.D. (certified prosthetist vice president) 02/23/2023 4:31 AM I, Rachel Phillips MD [...] verification. > Dictated by Nash Arreola MD (certified prosthetist vice president). I, Bebo Kuo MD have personally reviewed and interpreted this examination/study. > Interpreting Provider: Bebo Kuo MD on 02/23/2023 8:19 AM Problem List: History of CVA (cerebrovascular accident) (POA: Yes) Essential (primary) hypertension (POA: Yes) Seizure disorder (CMS/HCC) (POA: Yes) Chronic respiratory failure with hypoxia (CMS/HCC) (POA: Yes) Dementia, vascular (CMS/HCC) (POA: Yes) Tracheostomy in place (CMS/HCC) (POA: Yes) PEG tube malfunction (CMS/HCC) (POA: Yes) Aspiration into airway, subsequent encounter (POA: Yes) Assessment and Plan: PEG malfunction -IR replaced PEG today -Can start using it as soon as changed per IR recommendation Chronic hypoxic respiratory failure s/p tracheostomy Concern for aspiration pneumonia -Hx of aspiration and prior penmonia -S/p Ceftriaxone and flagyl -Has a trach collar in place -Continue with Suction q 4h Epilepsy -Hospitalized with status epilepticus in -Neurology following -Home regimen: Onfi, Vimpat. Keppra, Depakene -Seizure precaution -Continue with IV Vimpat, Keppra, Depakene ad Clonazepam PDT Hx of CVA Vascular dementia -Home meds can be restarted given New PEG placed HTN HLD -Home Meds can be restarted given new PEG placed Hx of alcohol abuse -Home Thiamine and folate -Continue once new PEG in place Constipation -Imagine showing stool burden -Continue with Bowel regimen once new PEG in place Inpatient Checklist -LDA: PIV, PEG -Antibiotic end date:02/24 -Consults:IR, Neurology -DVT:Lovenox -Diet:NPO -Code: Full -Dispo:In bernie Cameron PA-C [facility] Medicine ASCOM # [id number] Non-urgent messages may be sent through BRIKA Date of service: 02/25/2023 Attending Physician: Westley Corley MD * Tiffani Moreno RN - 02/25/2023 5:19 PM CDT Transported to [facility] in [facility]. [facility] received patient. Patient able to communicate and back to baseline procedure. * Tiffani Moreno RN - 02/25/2023 4:45 PM CDT Interventional Radiology Nursing - End Procedure Note Procedure start time: 1617 hours Procedure end time:1626 hours Contrast: 30 mL of Isovue-300 Fluoroscopy time: 2.3 min * Elmo Caicedo SLP - 02/25/2023 11:25 AM CDT [facility] Passy Bingham Valve Treatment Patient: Bi Tabor [facility] Record Number: [id number] Date of :: 1960 Age: [age] year old PPE: n95, gloves Impressions: Patient reassessed at bedside for PMV. Patient able to wear PMV for 15 minutes with SPO2 at/above 98%. However, patient very drowsy today and required max cues and encouragement from DISPLAY DESIGNER. continues to recommend for patient to wear PMV during waking, as long as he is alert. will follow patient to assess PMV tolerance while in hospital. PMV Recommendations: Recommend use of PMV during waking hours Discharge Recommendations: TBD, due to acute medical status Speech therapy is recommended for further assessment of speech/language/cognition. Subjective: Mental Status: Alert and lethargic Pain: Patient does not report pain at this time Objective: Tracheostomy Tube: Bivona 8 Breathing Status: trach collar- 8L/min Baseline spO2: 98%+ Phonation with finger occlusion: yes Voice quality: Breathy and Decreased intensity-if yes above Patient was educated re: effects of trach on phonation and the need for finger occlusion or PMV useto achieve voicing and improve communicative function. Education: Patient, Nursing and Physician instructed in recommedations and indicated understanding. Use of PMV reviewed with Ritesh SIMON. Instructions for use also communicated on patient's whiteboard. Goals: Short Term Goals: Patient to achieve phonation with Passy Lucius Valve while on tracheostomy. Assisted Goal(s): Patient to be independent/baseline with speech/language/cognitive/swallowing to be able to safely discharge to prior level of care. If patient is discharged from the facility, this note serves as a discharge note if further speech therapy visits did not occur. Elmo Ansari M.A., [facility]-DISPLAY DESIGNER Speech Language Pathologist [phone] * Ej Mosley RN - 02/25/2023 2:59 AM CDT Problem: Skin Integrity Goal: Skin integrity is maintained or improved Outcome: Progressing Problem: Fall Risk Goal: Fall risk and fall related injury risk are minimized (interventions related to the fall risk can be found in the flowsheet documentation) Outcome: Progressing Pt in bed resting. Alert and reoriented as needed. No s\s of distress. Minimal secretions noted. Remains clear to white. Although feeding tube is covered/dressed with ABD pads. They're being saturated and having to be changed more than once per shift. A small hole was seen in the middle of the tubing, where drainage is seeping from. Call light in reach. Will continue to monitor. * Ritesh Johnson RN - 02/24/2023 5:22 PM CDT Problem: Skin Integrity Goal: Skin integrity is maintained or improved Outcome: Progressing Problem: Fall Risk Goal: Fall risk and fall related injury risk are minimized (interventions related to the fall risk can be found in the flowsheet documentation) Outcome: Progressing * Elmo Caicedo SLP - 02/24/2023 3:10 PM CDT [facility] Passy Lucius Valve Evaluation Patient: Bi Tabor [facility] Record Number: [id number] Date of :: 1960 Age: [age] year old In addition to the 1:1 evaluation of the patient, additional eval time was spent completing the chart review prior to the assessment, completing the multidisciplinary plan of care and education plan post evaluation and communicating results of the eval to other treatment team members. PPE: n95, gloves Impressions: Patient assessed at bedside for PMV. Patient able to tolerate finger occlusion of trach and wore PMV for 20 minutes with SPO2 at/above 98%. ST recommends for patient to wear PMV during waking hours, to be removed for suctioning needs and when sleeping. ST will follow patient assess PMVtolerance. PMV Recommendations: Recommend use of PMV during waking hours Discharge Recommendations: TBD, due to acute medical status Speech therapy is recommended for further assessment of speech/language/cognition. Subjective: Mental Status: Alert and responsive, lethargic Pain: Patient does not report pain at this time Objective: Tracheostomy Tube: Bivona 8 Breathing Status: trach collar- 8L/min Baseline spO2: 98%+ Phonation with finger occlusion: yes Voice quality: Breathy and Decreased intensity-if yes above Patient was educated re: effects of trach on phonation and the need for finger occlusion or PMV useto achieve voicing and improve communicative function. Assessment: PMV was placed by DISPLAY DESIGNER and patient was observed wearing valve for approximately 20 minutes. spO2 was98%+ . Vocal quality with PMV in place was Breathy and Decreased intensity. Patient did not exhibitany change in respirations and did not complain of any shortness of breath. Patient was instructed in the valve's proper placement and removal. DISPLAY DESIGNER also educated patient on proper care of valve and instructions for use of valve (removed for sleep). Education: Patient, Nursing and Physician instructed in recommedations and indicated understanding. Use of PMV reviewed with RNRitesh. Instructions for use also communicated on patient's whiteboard. Goals: Short Term Goals: Patient to achieve phonation with Passy Lucius Valve while on tracheostomy. Parts Control Clerk Goal(s): Patient to be independent/baseline with speech/language/cognitive/swallowing to be able to safely discharge to prior level of care. If patient is discharged from the facility, this note serves as a discharge note if further speech therapy visits did not occur. Elmo Ansari M.A., [facility]-DISPLAY DESIGNER Speech Language Pathologist [phone] * Clover Cash PA-C - 02/24/2023 12:55 PM CDT Hospitalist Daily Progress Note Name: Bi Tabor Age: [age] year old Room: 729/01 Date Admitted: 02/23/2023 Hospital Course: Bi Tabor is a 63 year old male with past medical history of epilepsy, chronic hypoxic respiratory failure s/p trach, hypertension, hyperlipidemia, prior CVAs and vascular dementia presented on 02/23 24H/S: Patient seen and examined at bedside. Unable to talk to him due to trach and dementia, appears comfortable. Vitals: BP 156/74 Pulse 48 Temp 97.4 ??F (36.3 ??C) Resp 18 Ht 1.778 m (5' 10 ) Wt 71.5 kg (157 lb 10.1 oz) SpO2 98% PE: General appearance - alert, well appearing, and in no distress Chest - clear to auscultation, no wheezes, rales or rhonchi, symmetric air entry, trach in place and breathing comfortably Heart - normal rate, regular rhythm, normal S1, S2, no murmurs, rubs, clicks or gallops Abdomen - soft, nontender, nondistended, no masses or organomegaly, PEG in place with fluid leakingout tube, site around PEG is without drainage or erythema Musculoskeletal - no joint tenderness, deformity or swelling Skin - normal coloration and turgor, no rashes, no suspicious skin lesions noted Neuro - follows simple commands, unable to ask orientation questions due to patient's condition I personally reviewed the labs today Imaging: XR ABD OBSTR SERIES W CHEST 1VW [...] verification. Report dictated by Ashu Welch M.D. (certified prosthetist vice president) 02/23/2023 4:31 AM Rachel Thomason MD have personally reviewed and [...] verification. > Dictated by Nash Arreola MD (certified prosthetist vice president). Bebo Thomason MD have personally reviewed and interpreted this examination/study. > Interpreting Provider: Bebo Kuo MD on 02/23/2023 8:19 AM Micro: Microbiology Results (Displays last 21 days for this encounter ONLY) No results found for the last 504 hours. Assessment and plan: PEG tube dysfunction IR is following. PLAN: Plan for PEG tube exchange today at 1400 Can start using tube tomorrow, will need to be monitored Will consult nutrition for tube feed recs Concern for aspiration pneumonia Chronic hypoxic respiratory failure s/p tracheostomy He has a history of significant aspiration and prior pneumonia. CT showed likely areas of retained secretions / aspiration. Was started on ceftriaxone/flagyl in the ED. Currently he is non-hypoxic ontrach collar, afebrile, no leukocytosis. Procal was negative. PLAN: Okay to discontinue ABx with negative procal and no symptoms Suction trach q4h Epilepsy Patient was hospitalized in 12/2022 with status epilepticus. Home meds are Onfi 15mg qAM / 20mg qPM,Vimpat 200mg BID, Keppra 2000mg BID, Depakene 500mg QID. Neurology was consulted for med recs as patient's PEG tube has malfunction. PLAN: IV Vimpat 200mg BID, Keppra 2000mg BID, Depakene 500mg QID Per pharmacy, there is no IV equivalent of Onfi. Discussed with neurology, they recommend clonazepam ODT 1mg BID Seizure precautions If patient has seizure, call neurology ([id number] in morning, 2849 in evening) If there is a convulsive seizure, give ativan 4 mg if it lasts longer than 5 minutes Hypertension, hyperlipidemia: hold home meds until PEG tube is exchanged Hx of CVA, vascular dementia: hold home meds until PEG tube is exchanged Constipation: CT and KUB showed stool burden, s/p 1 suppository on 02/23, start PO bowel regimen when able to use PEG tube Hx of alcohol use: hold home thiamine and folate until PEG tube is replaced Inpatient Checklist -LDA: PIV, PEG -Antibiotic end date: 02/24 -Consults: Neurology, IR -DVT: Hold for IR procedure -Diet: NPO -Code: FULL -Dispo: Inpatient Clover Cash PA-C Pager Feel free to text page me through [place] Date of service: 02/24/2023 Attending Physician: Ck Mccurdy,* * James Oliveira RN - 02/24/2023 11:30 AM CDT Care Coordination Initial Assessment Anticipated Discharge Date: 02/24/23 Transportation at Discharge: Medicaid Provider Anticipated level of care at discharge: Correction - Medicaid Anticipated level of care provider: [facility]) Prior to admission level of care: Correction - Medicaid Prior to admit provider: [facility] Patient Goals: Return to SNF Plans: Discharge needs identified. See progress notes for details. Case Management to follow for discharge planning. Comments: Patient presented from SNF with clogged GJ tube. Patient requires total care from staff. Lives with: Roomate(s) Physical Limitations: Wheelchair Bound Requires Assistance With: Mobility;Dressing;Toileting;Hygiene;Transfers;Housekeeping;Meal Preparatio n;Medication Administration;Shopping Preferred Pharmacy: [facility] [id number] [place] [address] [address] [facility] [id number] READMISSION RISK SCORE is 27 at 11:30 AM 02/24/2023. Chart Review Family Support (name and phone): Extended Emergency Contact Information Primary Emergency Contact: BabakSidney Mobile Relation: Sister Cost Accounting Analyst needed? No Secondary Emergency Contact: Amarjit Tabor [facility] Relation: Brother Patient or hvac sales representative requests care coordination reach out to family or caregiver listed above regarding discharge planning and at time of discharge? Yes Patient/Family provided with list of resources? No Preferred Provider / High Quality Network List given?: No Reason for provider choice: Pt. choice - previous provider Equipment at Home: Facility Equipment List DME pt. requires but does not have.: None Directional Survey Drafter Referral: Yes SNF return Will continue to follow. For any questions or needs please contact: Cut Pressman Name/Phone number: KAILASH Figueroa, newsperson Office:[phone] 02/24/2023 * Susan Sosa RN - 02/24/2023 10:54 AM CDT Images from the original note were not included. WOUND OSTOMY NURSE CONSULT NOTE Bi Tabor is an 63 year old malewho has around g tube site. This consultation was requested by Ritesh Kinsey MD. History Social History Substance and Sexual Activity Alcohol Use No Comment: last drink 2015 Social History Tobacco Use Smoking Status Former ??? Packs/day: 1.00 ??? Years: 15.00 ??? Pack years: 15.00 ??? Types: Cigarettes Smokeless Tobacco Never Vaping Use ??? Vaping Use: Never used Past Medical History: Diagnosis Date ??? Cerebrovascular disease ??? HTN (hypertension) ??? Seizure (CMS/HCC) Past Surgical History: Procedure Laterality Date ??? ENDOSCOPY, UPPER N/A 03/25/2022 N/A; ESOPHAGOGASTRODUODENOSCOPY (EGD) DIAGNOSTIC with PEG Placement ??? ENT SURGERY N/A 07/15/2022 N/A; TRANSCERVICAL ZENKERS DIVERTICULECTOMY, OPEN TRACHEOSTOMY ??? 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 SINUS SURGERY N/A 11/26/2022 N/A; Bilateral Nasal Endoscopy, Right polypectomy, Right Maxillary Antrostomy, Rihjy Anterior Ethmoidectomy Medications/Allergies Allergies Allergen Reactions ??? Clonazepam Psychiatric hallucinations Medications Prior to Admission Medication Sig Dispense Refill ??? acetaminophen (Tylenol) [...] by Enteral Tube route once daily ??? cloBAZam (Onfi) 10 MG tablet Take 1.5 pills (15mg) AM and 2 pills (20mg) PM 105 tablet 5 ??? enoxaparin (Lovenox) 40 MG/0.4ML injection Inject 40 (forty) mg subcutaneously once daily ??? folic acid (Folvite) 1 MG tablet 1 (one) tablet by Enteral Tube route once daily ??? guaiFENesin (Robitussin) 100 MG/5ML solution 10 mL by Enteral Tube route every 6 hours ??? lacosamide (Vimpat) 200 MG tablet 1 (one) tablet by Enteral Tube route 2 times daily 60 tablet 5 ??? levETIRAcetam (Keppra) 1000 MG tablet 2 (two) tablets by Enteral Tube route 2 times daily ??? metoprolol tartrate IR (Lopressor) 25 MG tablet 1 (one) tablet by Enteral Tube route 2 times daily ??? pantoprazole (Protonix) 40 MG packet Take 1 (one) packet by mouth once daily 0 ??? polyethylene glycol 3350 (Miralax) 17 g packet 17 (seventeen) g by Enteral Tube route once daily ??? senna-docusate (Senokot-S) 8.6-50 MG tablet Take 1 (one) tablet by mouth once daily as needed for Constipation ??? thiamine (Vitamin B-1) 100 MG tablet 1 (one) tablet by Enteral Tube route once daily ??? valproic acid (Depakene) 250 MG/5ML solution 10 mL by Per G Tube route 4 times daily Data Review: Chemistry: Lab results smartLinks are not currently available CBC: Lab results smartLinks are not currently available Assessment Vitals: 02/24/23 0444 02/24/23 0447 02/24/23 0748 02/24/23 0925 BP: 146/80 146/80 156/74 Pulse: 55 57 48 Resp: 18 18 Temp: 97.4 ??F (36.3 ??C) 97.4 ??F (36.3 ??C) SpO2: 97% 97% 99% 98% Weight: Height: Pt discussed with primary nurse and assessed at the bedside. Pt with PEG that has a defect in the distal aspect of the tube and the plan is to replace the tube today. Skin appears to be slightly irritated. Pain Assessment Pain Location #1 Pain Scale/Observation: Faces Pain Rating Score #1: 0 Behaviors/Assumed Pain Present : Calm Giusepep Score Giuseppe Scale - Adult Sensory Perception: Slightly Limited Moisture: Occasionally Moist Activity: Bedfast Mobility: Slightly Limited Nutrition: Adequate Friction and Shear: Potential Problem Total Score: 15 Recommendations: Tube site care: Cleanse with soap and water. Pat dry. Apply skin prep to site daily. Susan Sosa RN * Ej Mosley RN - 02/24/2023 1:26 AM CDT Problem: Skin Integrity Goal: Skin integrity is maintained or improved Outcome: Progressing Problem: Fall Risk Goal: Fall risk and fall related injury risk are minimized (interventions related to the fall risk can be found in the flowsheet documentation) Outcome: Progressing Pt in bed resting. No s\s of distress noted. Moderate suctioning required. Secretions are clear/white. Denies pain. New additional IV placed d/t multiple IV meds being given. Call light in reach. Will continue to monitor. * Rojas Yap MD - 02/23/2023 6:27 PM CDT Images from the original note were not included. Neurology plan of care: Primary team contacted neurology for assistance of anti seizure medication and his PEG tube is not working and they would like to find another option to replace onfi in meantime. ?? Patient is a 63 yo m with hx of post stroke epilepsy. He currently takes VPA/keppra/Vimpat/Onfi. (everythig enteral) Recommendations: -Seizure precautions. -Fall precautions. - Continue IV VPA 500mg QUID. - Continue IV Vimpat 200mg BID. - Continue IV keppra 2000mg BID -Stop onfi and start clonazepam 1mg BID (sublingual tablet). -Please, if patient starts having seizure call neurology (4616 in moring and 4633 in evening). -If there is a convulsive seizure, use ativan 4mg if seizure last > 5 minutes. Rojas Yap. PGY4 Neurology resident. documented in this encounter H&P Notes * Ritesh Kinsey MD - 02/23/2023 8:35 AM CDT [facility] INTERNAL MEDICINE HISTORY & PHYSICAL NOTE Date of Admission: 02/23/2023 Patient: Bi Tabor Sex: male Age: [age] year old Date of : 1960 Code Status: Full Code SUBJECTIVE Chief Complaint: Clogged PEG tube History of Present Illness: Bi Tabor is a 63 year old male with a history of epilepsy, chronic hypoxic respiratory failure s/p trach, HTN, HLD, prior CVAs, and vascular dementia who presented for GJ tube dysfunction. His [place] [facility] sent him to the ER after at least 24 hours of dysfunction and inability to administer medications or nutrition. The patient is minimally interactive, thus most information was obtained from chart review. He did nod yes when asked if he had abdominal pain, but he did not show any signs of discomfort on abdominal exam. On arrival to the ER, VS were Temp 98F, HR 61, SpO2 95%, BP 128/77. Labs were notable for normal WBC 6.1. Initial KUB showed concern for free air, however follow-up CT abdomen did not demonstrate this. CT also showed ground glass opacities and nodularity in the right upper lobe concerning for aspiration / retained secretions. The patient was started on ceftriaxone and flagyl for concern of aspiration pneumonia. Past Medical History: Past Medical History: Diagnosis Date ??? Cerebrovascular disease ??? HTN (hypertension) ??? Seizure (CMS/HCC) Past Surgical History: Past Surgical History: Procedure Laterality Date ??? ENDOSCOPY, UPPER N/A 03/25/2022 N/A; ESOPHAGOGASTRODUODENOSCOPY (EGD) DIAGNOSTIC with PEG Placement ??? ENT SURGERY N/A 07/15/2022 N/A; TRANSCERVICAL ZENKERS DIVERTICULECTOMY, OPEN TRACHEOSTOMY ??? 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 SINUS SURGERY N/A 11/26/2022 N/A; Bilateral Nasal Endoscopy, Right polypectomy, Right Maxillary Antrostomy, Rihjy Anterior Ethmoidectomy Family History: Unable to obtain due to patient condition Social History: Social History Socioeconomic History ??? Marital status: Single Spouse name: Not on file ??? Number of children: Not on file ??? Years of education: Not on file ??? Highest education level: Not on file Occupational History ??? Not on file Tobacco Use ??? Smoking status: Former Packs/day: 1.00 Years: 15.00 Pack years: 15.00 Types: Cigarettes ??? Smokeless tobacco: [...] No Stress: No Stress Concern Present (11/28/2022) [employer] - Occupational Stress Questionnaire [...] by Enteral Tube route once daily ??? cloBAZam (Onfi) 10 MG tablet Take 1.5 pills (15mg) AM and 2 pills (20mg) PM 105 tablet 5 ??? enoxaparin (Lovenox) 40 MG/0.4ML injection Inject 40 (forty) mg subcutaneously once daily ??? folic acid (Folvite) 1 MG tablet 1 (one) tablet by Enteral Tube route once daily ??? guaiFENesin (Robitussin) 100 MG/5ML solution 10 mL by Enteral Tube route every 6 hours ??? lacosamide (Vimpat) 200 MG tablet 1 (one) tablet by Enteral Tube route 2 times daily 60 tablet 5 ??? levETIRAcetam (Keppra) 1000 MG tablet 2 (two) tablets by Enteral Tube route 2 times daily ??? metoprolol tartrate IR (Lopressor) 25 MG tablet 1 (one) tablet by Enteral Tube route 2 times daily ??? pantoprazole (Protonix) 40 MG packet Take 1 (one) packet by mouth once daily 0 ??? polyethylene glycol 3350 (Miralax) 17 g packet 17 (seventeen) g by Enteral Tube route once daily ??? senna-docusate (Senokot-S) 8.6-50 MG tablet Take 1 (one) tablet by mouth once daily as needed for Constipation ??? thiamine (Vitamin B-1) 100 MG tablet 1 (one) tablet by Enteral Tube route once daily ??? valproic acid (Depakene) 250 MG/5ML solution 10 mL by Per G Tube route 4 times daily Current Medications: Scheduled: ??? 0.9% NaCl 3 mL Intracatheter q8h ??? artificial tears Each Eye q8h ??? cefTRIAXone 2 g Intravenous q24h ??? enoxaparin 40 mg Subcutaneous QDAY ??? metroNIDAZOLE 500 mg Intravenous q8h Continuous: dextrose 5 % and 0.45 % NaCl with KCl 20 mEq, , Last Rate: 75 mL/hr at 02/23/23 0544 PRN: ??? SALINE LOCK, INSERT AND MAINTAIN AND 0.9% NaCl AND 0.9% NaCl Review of Systems: Unable to obtain full ROS due to patient condition. He was able to nod yes to abdominal pain, buthe did not respond to other questions. OBJECTIVE Vital Signs: Temp: [98 ??F (36.7 ??C)] 98 ??F (36.7 ??C) Pulse: [61] 61 Resp: [20] 20 BP: (128)/(77) 128/77 Physical Exam: Physical Exam Constitutional: General: He is not in acute distress. Appearance: He is not toxic-appearing. HENT: Head: Normocephalic and atraumatic. Right Ear: External ear normal. Left Ear: External ear normal. Nose: Nose normal. Mouth/Throat: Mouth: Mucous membranes are moist. Pharynx: Oropharynx is clear. Eyes: General: Right eye: No discharge. Left eye: No discharge. Cardiovascular: Rate and Rhythm: Normal rate and regular rhythm. Heart sounds: No murmur heard. No friction rub. No gallop. Pulmonary: Effort: No respiratory distress. Breath sounds: No wheezing, rhonchi or rales. Comments: Upper airway mucous Abdominal: General: Abdomen is flat. There is no distension. Palpations: Abdomen is soft. Tenderness: There is no abdominal tenderness. There is no guarding. Comments: +PEG (clean, dry, no erythema or drainage) Musculoskeletal: General: No swelling or tenderness. Cervical back: No tenderness. Skin: General: Skin is warm and dry. Neurological: Mental Status: He is alert. Mental status is at baseline. Psychiatric: Mood and Affect: Mood normal. Behavior: Behavior normal. Lab Results: CBC: Recent Labs Component Name 02/23/2335 01/14/234 01/13/23 0432 WBC 6.1 6.8 7.6 HGB 12.3 11.0* 11.0* HCT 38.0 34.4* 34.5* MCV 95.0 96.1 97.2 Coagulation Panel: Recent Labs Component Name 12/31/22205212/13/22 0146 12/09/22 1211 PT 13.7 13.3 14.3 INR 1.1 1.0 1.1 BMP: Recent Labs Component Name 02/23/23 0535 01/14/23 0424 01/13/23 0432 NA 137 140 139 POTASSIUM 4.4 3.8 3.6 CL 103 107 106 CO2 28 29 28 BUN 12 12 15 CREATININE 0.54* 0.37* 0.40* CALCIUM 10.1 9.4 9.3 Recent Labs Component Name 02/23/23 0535 01/14/23 0424 01/13/23 0432 MAGNESIUM 1.8 1.7 1.7 Recent Labs Component Name 02/23/23 0535 01/14/23 0424 01/13/23 0432 PHOS 3.0 2.6* 2.7* Hepatic Panel: Recent Labs Component Name 02/23/23 0535 01/14/23 0424 01/13/23 0432 08/28/22 1251 06/30/22 1039 03/03/18 1745 01/30/18 1255 11/28/17 0455 10/14/17 1349 AST 17 13 11 - - - 18 ALT 7 7 8 - 5 - 10 - 9 ALKPHOS 90 77 81 - 65 - 75 - 86 TBILI 0.2 0.2 0.2 - 0.3 - 0.4 - 0.6 DBILI - - - - 0.2 - 0.2 - 0.2 IBILI - - - - 0.1 - 0.2 - 0.4 ALB 2.7* 2.6* 2.6* - 2.2* - 3.7 - 3.9 - = values in this interval not displayed. ABG: Recent Labs Component Name 01/11/23 1042 01/07/23 1224 01/03/23 1132 12/31/22 2217 12/31/22 2053 PH 7.40 7.43* 7.49* 7.44 7.50* PCO2 - - 34* 36 33* PO2 - - 108* 151* 175* Thyroid Studies: Recent Labs Component Name 01/01/23 0422 TSH 2.578 Cardiac Enzymes: Recent Labs Component Name 01/02/23 1008 07/01/22 1634 06/28/22 0141 06/27/22 2215 05/30/22 1750 CKTOTAL 51 - - - - TROPONINI - - <0.010 <0.010 <0.010 - = values in this interval not displayed. Lipid Panel: Recent Labs Component Name 04/11/15 0622 LDLCALC 102* HDL 81 Microbiology: No new studies obtained Imaging & Studies: CT C/A/P: 1.Atelectasis of the lower lobe of the [...] noted throughout the entire colon and rectum. ASSESSMENT & PLAN History of CVA (cerebrovascular accident) (POA: Yes) Essential (primary) hypertension (POA: Yes) Seizure disorder (CMS/HCC) (POA: Yes) Chronic respiratory failure with hypoxia (CMS/HCC) (POA: Yes) Dementia, vascular (CMS/HCC) (POA: Yes) Tracheostomy in place (CMS/HCC) (POA: Yes) PEG tube malfunction (CMS/HCC) (POA: Yes) Aspiration into airway, subsequent encounter (POA: Yes) Bi Tabor is a 63 year old male with a history of epilepsy, chronic hypoxic respiratory failure s/p trach, HTN, HLD, prior CVAs, and vascular dementia who presented for PEG tube dysfunction. #PEG tube dysfunction -Was already scheduled for routine exchange with IR on 02/24; it is unlikely they can fit him into the schedule before this -NPO, hold dvt prophylaxis, hold tube feeds -IR exchange tomorrow #Epilepsy -Had a hospitalization in [facility] ICU in December 2022 for status epilepticus -Home medications are Onfi 15mg qAM / 20mg qPM, Vimpat 200mg BID, Keppra 2000mg BID, Depakene 500mgQID PLAN -IV Vimpat 200mg BID, Keppra 2000mg BID, Depakene 500mg QID -Per pharmacy, there is no IV equivalent of Onfi. Discussed with neurology, they recommend clonazepam ODT 1mg BID. #Possible aspiration pneumonia #Chronic hypoxic respiratory failure s/p tracheostomy -Patient has a history of significant aspiration and prior pneumonia. CT showed likely areas of aspiration / retained secretions. -Currently patient is non-hypoxic on trach collar at 4L, non-tachycardic, afebrile, and has no leukocytosis. Does have mild thrombocytopenia. PLAN -Check procalcitonin -Continue ceftriaxone and flagyl -If patient remains well and procal is low, can likely discontinue antibiotics -Suction trach q4 hrs #HTN #HLD -Holding home atorvastatin 40mg, metoprolol tartrate 25mg BID until GJ tube exchanged #History of CVA #Vascular dementia -Holding home ASA 81mg, atorvastatin 40mg until GJ tube exchanged #Constipation -Stool burden noted on KUB and CT -Dulcolax suppository x1 today; resume home miralax and senna after GJ tube exchanged #History of alcohol use -Holding home thiamine and folate until GJ tube exchanged Code: Full Diet: NPO Electrolytes: Replete PRN PPx: Lovenox x1, then hold for IR procedure tomorrow Access: PIV Dispo: Admit to Medicine The above assessment and plan will be discussed with the attending. This note is not final until attested by attending physician. Ritesh Kinsey MD Internal Medicine Resident SS - [facility] 02/23/2023 8:35 AM Associated attestation - Cory Cali MD - 02/23/2023 5:20 PM CDT I have verified the documentation of the resident including all history, exam, and medical decision-making details. I have personally performed a physical exam and have personally reviewed the data to support my medical decision-making as outlined in their note. I agree with their assessment and plan other than any corrections/additions as documented below. Corrections/Additions: - None Date of Service: 02/23/2023 Cory Cali MD documented in this encounter Procedure Notes * Ankur Coombs DO - 02/23/2023 5:27 AM CDT 02/23/2023 5:27 AM US PIV Insertion Procedure Note Procedure: Ultrasound guided peripheral line Indication: Difficult to place a peripheral IV Ultrasound guided peripheral line was performed by myself under the direct supervision of my attending physician. The ultrasound was placed over the Right forearm and a vessel was visualized. This vessel was compressible as well as non pulsatile. The area was prepped with chloroprep and the ultrasound was cleaned and covered in a tegaderm. Sterile gel was placed over the area and the ultrasound localized the same vessel as previously seen. A 20 gauge needle was placed and followed with the US until it was visualized in the vessel lumen and a flashback was seen in the catheter. The needle point was followed as it traveled down the lumen and then the catheter was advanced without resistance. L ine is flushable without extravasation. Area is cleaned with chloroprep and tegaderm was placed over the line. Ankur Coombs D.O. Emergency Medicine PGY-2 Associated attestation - Kortney Vega MD - 02/23/2023 5:56 AM CDT I supervised resident Dr. Coombs in placement of above US guided IV - present for alanis portions of procedure documented in this encounter Consult Notes * Clover Sanchez, MINH/ONI - 02/25/2023 9:50 AM CDTAssociated Order(s): IP CONSULT TO NUTRITIONAL SERV Clinical Nutrition Assessment Brief Synopsis: Patient is at nutrition risk; Specific criteria can be found in assessment below Nutrition Plan: NPO + TF TF recommendations: Osmolite 1.2 at 65 ml/hr. Provides 1872 kcal, 86g Protein, 246 g carbohydrate, 1279mL free water Recommend free water flushes 130mL Q 6 hours or per MD Start TF at 30mL/hr. If no signs/symptoms of intolerance, advance by 35mL Q 6 hours Recommendations to Physician: See above Hypomagnesemia-replete per protocol Comments: Acknowledging 02/24 consult for tube feeding recs. Patient familiar to RD services. Hx of severe malnutrition. Admitted for PEG tube malfunction. Last BM 02/23. Pt asleep during attempted visit and head only visible. Attempt NFPE at f/u, suspect some degree of malnutrition due to hx. RD remains available PRN. F/u per clinical guidelines. Assessment: Med/Surg History and Clinical Diagnoses: 63 year old male with a history of epilepsy, chronic hypoxic respiratory failure s/p trach, HTN, HLD, prior CVAs, and vascular dementia who presented for GJ tube dysfunction. His [place] [facility] sent him to the ER after at least 24 hours of dysfunction and inability to administer medications or nutrition Height: 177.8 cm (5' 10 ) Weight: 71.5 kg (157 lb 10.1 oz) BMI: Body mass index is 22.62 kg/m??. BMI Range: Normal IBW/lb (Calculated) Male: 166 , Recent Weights/Methods 01/14/2023 0600 01/14/2023 0700 01/14/2023 1900 01/14/2023 2000 01/14/2023 2100 01/14/2023 2200 02/23/2023 2144 02/25/2023 0900 Weight: -- -- -- -- -- -- 71.5 kg (157 lb 10.1 oz) 71.5 kg (157 lb 10.1 oz) Weight Method (Utilize Scales): [facility] Stated -- Wt Comments: Diet order accuracy Current diet order: NPO Nutrition recommendation: alter/change nutrition order P.O.Intake for the past 48 hrs: % Meal Taken Av % Min: 0 % Max: 0 % Supplement(s) Consumed- Last 48 hours None Food Allergies: No known food allergies Chewing/Swallowing: Dysphagia (PEG tube) Pain affecting intake: No Estimated Needs: KCAL: 2157-5699 (25-30kcals/kg) Protein (g): 72-86 (1-1.2g/kg) Fluid (ml): 1 ml/kcal Needs based on: Kcal/kg- (Comment) (ABW 71.5kg) Recommended Access Route: TF Pertinent Nutrition Labs: Recent Labs Component Name 02/25/23 0434 02/24/23 1032 02/23/23 0535 01/14/23 0424 01/13/23 0432 BUN 9 9 12 12 15 CREATININE 0.46* 0.44* 0.54* 0.37* 0.40* NA 138 137 137 140 139 POTASSIUM 4.1 3.7 4.4 3.8 3.6 CL 109* 107 103 107 106 CO2 21* 24 28 29 28 GLUCOSE 77 96 82 103 103 CALCIUM 9.5 9.6 10.1 9.4 9.3 PROT - - 7.6 6.7 6.8 ALB 2.5* - 2.7* 2.6* 2.6* TBILI - - 0.2 0.2 0.2 ALKPHOS - - 90 77 81 ALT - - 7 7 8 AST - - 17 13 11 ANIONGAP 8 6 6 8 9 BCR 20 20 22 32* 38* OSMOLALITY 283 283 283 290 289 AGRATIO - - 0.6* 0.6* 0.6* EGFR >90 >90 >90 >90 >90 Pertinent Nutrition Medications: Current Facility-Administered Medications Medication ??? 0.9% NaCl injection 3 mL And ??? 0.9% NaCl injection 1-10 mL ??? artificial tears ophthalmic ointment ??? clonazePAM (disintegrating) (KlonoPIN Wafer) tablet 1 mg ??? dextrose 5 % and lactated ringers infusion ??? lacosamide (Vimpat) injection 200 mg ??? levETIRAcetam (Keppra) 2,000 mg in 0.9% NaCl IV 270 mL IVPB ??? magnesium sulfate 2 g in 50 mL bolus ??? valproate (Depacon) 500 mg in 0.9% NaCl IV 55 mL IVPB Skin/Wound: WDL Nutrition Care Process (1) Nutrition Diagnostic Statement: Inadequate oral intake related to:: decreased ability to consume or tolerate food and/or fluids due to illness as evidenced by:: need for parenteral or enteral intake to supplement oral intake Nutrition Diagnostic Statement Progress: New diagnostic statement established Nutrition Intervention: Enteral nutrition: Monitoring: TF, labs, meds, BM, weight Evaluation: Nutrition Goal: Enteral/Parenteral Nutrition prescription will be consistent with estimated nutrient needs Nutrition Goal Timeframe: Ongoing Nutrition Goal Progress: New goal established ASCOM: [id number] * Kinza Reynolds MSW - 02/24/2023 12:29 PM CDTAssociated Order(s): IP CONSULT TO [employer] PROFESSOR Care Coordination Progress Note Anticipated level of care at discharge: Correction - Medicaid: Anticipated level of care provider: [facility] ([facility] and [facility]): Anticipated Discharge Date: 02/24/23: Discharge Plan: SW contacted [facility] and let them know that Pt will be returning when medically ready for d/c. SW will continue to follow. Update 327PM: [facility] called Sw back regarding Pt returning. Sw faxed over updated notes regarding Pt to facility. [facility] is submitting for insurance auth. Orientation Level: Oriented to Person: Family Support (Name and Phone): Extended Emergency Contact Information Primary Emergency Contact: Adriane Hilliard Mobile Relation: Sister Cost Accounting Analyst needed? No Secondary Emergency Contact: Amarjit Tabor [facility] Relation: Brother Transportation at Discharge: Medicaid Provider: READMISSION RISK SCORE is 27 at 12:29 PM 02/24/2023.: CLARITA Arriaga [phone] * Gaurav Avila PA-C - 02/23/2023 8:52 AM CDTAssociated Order(s): IP CONSULT TO INTERVENTIONAL RADIOLOGY Vascular & Interventional Radiology New Inpatient Consult Patient: Bi Tabor Age: [age] year old Date of : 1960 Date of Admission: 02/23/2023 Date: 02/23/2023 Subjective: Referring physician: Dr Almanzar Reason for consult: GJ tube exchange HPI: 63 year old male with medical hx of CHRF, CVA, dementia, dysphagia with recurrent aspiration and gastroparesis despite g tube who previously underwent VIR image-guided G to GJ conversion on 12/14. Pt was recently hospitalized at an OSH for seizures, pt was medically stable for dishcarge on 01/14but noted to have clogged jejunostomy tube. Unable to exchange at OSH, [facility] contacted for exchange and scheduled for 02/24. Pt presented to [facility] for clogged jejunostomy tube this AM. VSS. +trach collar, family at bedside. Several attempts made to unclog jejunostomy prior without success. VIR consulted for evaluation of gastrojejunostomy exchange. Past Medical History: Diagnosis Date ??? Cerebrovascular disease ??? HTN (hypertension) ??? Seizure (CMS/HCC) Past Surgical History: Procedure Laterality Date ??? [...] Smoking status: Former Packs/day: 1.00 Years: 15.00 Pack years: 15.00 Types: Cigarettes ??? Smokeless tobacco: [...] presenting problem. ROS: ROS unable to be performed. Medications: Scheduled: ??? 0.9% NaCl 3 mL Intracatheter q8h ??? artificial tears Each Eye q8h ??? cefTRIAXone 2 g Intravenous q24h ??? enoxaparin 40 mg Subcutaneous QDAY ??? metroNIDAZOLE 500 mg Intravenous q8h PRN: ??? SALINE LOCK, INSERT AND MAINTAIN AND 0.9% NaCl AND 0.9% NaCl Infusions: dextrose 5 % and 0.45 % NaCl with KCl 20 mEq, , Last Rate: 75 mL/hr at 02/23/23 0544 Objective: Physical examination: BP 128/77 Pulse 61 Temp 98 ??F (36.7 ??C) Resp 20 SpO2 95% Estimated body mass index is 22.62 kg/m?? as calculated from the following: Height as of 01/01/23: 1.778 m (5' 10 ). Weight as of 01/14/23: 71.5 kg (157 lb 10.1 oz). General: NAD Eyes: anicteric, no lid lag ENT: atraumatic, MMM, +trach Neck: supple, trachea midline Lungs: normal respiratory effort, no accessory muscle use to trach collar Cardiovascular: Regular rate Abdomen: soft, nontender, nondistended; GJ access site CDI--residual feeding noted in jejunostomy tube, unable to be flushed Extremities: warm, no pitting edema Psychiatric: Awake Laboratory findings: Recent Labs Component Name 02/23/23 0535 01/14/23 0424 01/13/23 0432 03/09/22 0135 03/08/22 1455 WBC 6.1 6.8 7.6 - 20.8* HGB 12.3 11.0* 11.0* - 14.3 HCT 38.0 34.4* 34.5* - 42.9 PLTCOUNT 138* 186 186 - 211 PLATELET - - - - Occasional* - = values in this interval not displayed. Recent Labs Component Name 12/31/22205212/13/22 0146 12/09/22 1211 INR 1.1 1.0 1.1 Recent Labs Component Name 02/23/23 0535 01/14/23 0424 01/13/23 0432 NA 137 140 139 GLUCOSE 82 103 103 CREATININE 0.54* 0.37* 0.40* EGFR >90 >90 >90 Recent Labs Component Name 02/23/2335 01/14/234 01/13/232 ALB 2.7* 2.6* 2.6* TBILI 0.2 0.2 0.2 ALT 7 7 8 AST 17 13 11 ALKPHOS 90 77 81 Imaging: Relevant imaging studies were personally reviewed by myself and the IR attending, Dr Ramirez. CT CHEST ABDOMEN PELVIS WO CONT Result [...] verification. > Dictated by Nash Arreola MD (certified prosthetist vice president). I, Bebo Kuo MD have personally reviewed and interpreted this examination/study. > Interpreting Provider: Bebo Kuo MD on 02/23/2023 8:19 AM Recommendations: 63 year old male with medical hx of CHRF, CVA, dementia, dysphagia with recurrent aspiration and gastroparesis despite g tube who previously underwent VIR image-guided G to GJ conversion on 12/14. Pt was recently hospitalized at an OSH for seizures, pt was medically stable for dishcarge on 01/14but noted to have clogged jejunostomy tube. Unable to exchange at OSH, [facility] contacted for exchange and scheduled for 02/24. Pt [facility] to [facility] for clogged je[facility] tube this AM. VSS. +trach collar, family at bedside. Several attempts made to unclog jejunostomy prior without success. VIR consulted for evaluation of jejunostomy exchange. Pertinent labs and relevant imaging studies were reviewed. Risks, benefits, and alternatives of theprocedure were discussed in detail. Imaging and pt thoroughly reviewed by He Ashraf and Ashley. VIR amenable to procedure and plan for image-guided gastrojejunostomy tube exchange tentatively tomorrow, 02/24. Risks include but are not limited to infection, bleeding, and injury to surrounding structures. All VIR physicians including: Justin Cameron Malik, Vaheesan, Andriy, Shun, Ashley, Jyothi Angel and Fito, are qualified to perform procedure. 1. Written informed consent to be obtained from patient's prior to procedure. 2. Hold DVT ppx tomorrow, 02/24. 3. Pt to be NPO at midnight. 4. Order placed. The IR attending, Dr. Ramirez, is in agreement with the above recommendations. The case was discussed with Dr Kinsey from the referring service on 02/23/2023 at ~0900. Gaurav Avila PA-C Interventional Radiology [phone] Associated attestation - Nic Ramirez MD - 03/01/2023 6:11 AM CDT Images from the original note were not included. VASCULAR & INTERVENTIONAL RADIOLOGY FACULTY ATTESTATION NOTE: I have verified the documentation of the Gaurav Avila PA-C ,Vascular & Interventional Radiology, including all history, exam, and medical decision- making details. I have personally reviewed thedata to support my medical decision-making as outlined in the residents note including HPI, imagingand labs. I agree with the findings, assessment and plan as documented and arrive independently at the same conclusion. Nic Ramirez MD, [employer] Field Manager, [facility]. Vascular and Interventional Radiologist Minimally Invasive Specialist Endovascular interventions for Peripheral Arterial Disease ( PAD) / DVT/ Varicose veins and Pulmonary Embolism Endovascular interventions for Dialysis access Prostate Artery Embolization for BPH in men Uterine Fibroid Embolization for Uterine fibroids in Women For Outpatient/ inpatient appointments : For referrals to VIR: Ambulatory Referral to Interventional Radiology ([id number]) [facility] [place] Coordinator: [phone] [place] Inpatient consults: [facility] [address] [facility] Coordinators : [phone] [facility] Inpatient consults:[phone] For Hospital to Hospital VIR Transfers documented in this encounter OR Notes * Brief Op Note - Juan Diego Roe MD - 02/25/2023 4:30 PM CDT Vascular & Interventional Radiology Brief Post-Procedure Note Patient: Bi Chau Sharona Attending: Juan Diego Roe MD Grill Cook: None Diagnosis/Indication: GJ malfunction Procedure: Gastrojejunostomy catheter exchange Findings: After advancing a Glidewire advantage through the existing tube, it was removed and a new18 Fr gastrojejunostomy tube was advanced over the wire under fluoroscopic guidance. The retention balloon was insufflated with saline (8 mL). Contrast injection confirmed proper positioning within the gastric and jejunal lumens. Anesthesia: Local only Additional medications given: None Estimated blood loss: Minimal Specimens: None Immediate complications: None Follow-up: 1. The catheter can be used now. 2. Flush the catheter with 30 mL of water before and after each use. 3. If possible, use liquid formulation of medications and avoid crushed pills to maintain catheter patency. 4. Do not place dressing underneath the round rubber retention device. 5. In case of abdominal distension, discomfort, or feeding intolerance, stop feeding and call the IR service immediately. Contact IR if there is pericatheter leakage or if the catheter is inadvertently pulled out. Time out and final pre-procedure assessment completed immediately prior to start of procedure. Intra-procedure orders and medication record reviewed. Medications and doses administered by staff as verbally ordered. See detailed procedure note with images in PACS. Juan Diego Roe DO Vascular and Interventional Radiology 02/25/2023 4:30 PM documented in this encounter ED Notes * Alysha Reynaga RN - 02/23/2023 2:00 PM CDT Bed: [facility] Expected date: Expected time: Means of arrival: Comments: QT02 when clean * Shakila Mann RN - 02/23/2023 7:18 AM CDT Report given to milad * Leonardo Hanson MD - 02/23/2023 6:54 AM CDT ASSUMED CARE NOTE Patient signed out to me by Dr. Vega at 6:00 AM. Briefly, Bi Tabor is a 63 year old male with a PMHx of CVA with vascular dementia with chronic deficits, trach in place, and PEG tube is being evaluated for concern for PEG tube obstruction. He has notable fluid from his J-port, but nothing from his G-port. Gastric series with free air in the liver. CT ordered. At this time the patient's condition is stable. Pending CT read. Plan is likely admission. Patient Vitals for the past 6 hrs: Temp Pulse Resp BP 02/23/23 0139 98 ??F (36.7 ??C) 61 20 128/77 ED course: 06:30AM - Radiology called with CT preliminary report of extensive right lower lobe consolidations and widespread nodularities and ground glass opacities in the right lung, predominantly in the upperlobe, increased compared to prior study. Findings are consistent with aspiration pneumonia in the setting of debris-filled distal trachea and right main bronchus. Percutaneous gastrojejunostomy tube.No evidence of inflammation around the tube entrance site in the gastric antrum. No free air or free fluid is noted in the abdomen or pelvis.Extensive dense stool is noted throughout the entire colonand rectum. Will order for Rocephin and Flagyl and will plan for admission to medicine 06:51AM - After discussion with Medicine, the patient will be admitted to their service for furthermanagement of aspiration. Admitting provider is . - Reassessed the patient. Patient is resting comfortably. NAD. VSS. Updated patient on workup findings. I have reviewed the diagnostic findings with the patient and they have had an opportunity to ask me any questions they have about care, diagnosis, and reason for admission. The patient states understanding and agrees to admission. - Internal medicine team has assumed care Clinical Impression: 1. PEG tube malfunction (CMS/[facility]) 2. Peritoneal free air 3. Nausea without vomiting 4. Aspiration into airway, subsequent encounter Disposition: Admit to medicine. By signing my name below, I, Lila Sams, attest that this documentation has been prepared under the direction and in the presence of Dr. Hanson. Signed: Laisha Sandoval. By signing my name below, IBria, attest that this documentation has been prepared under the direction and in the presence of Dr. Hanson. Signed: Laisha Gamez. I, Dr. Hanson, personally performed the services described in this documentation. All medical record entries made by the scribe were at my direction and in my presence. I have reviewed the chart and agree that the record reflects my personal performance and is accurate and complete. * Shakila Mann RN - 02/23/2023 4:59 AM CDT Needs Ultrasound IV * Kortney Vega MD - 02/23/2023 3:23 AM CDT ED Attending Note I have personally seen, examined and been fully involved in the management of this patient with theresident Dr. Coombs. This note reflects combined documentation. Bi Tabor is a 63 year old male presenting to the ED c/o feeding tube issue. Care facility states his feeding tube has not been functioning for the past 24 hours. Care facility reportedly attempted to push medication through the tube however it was not successful. They also stated that the tube apparently would not flush. Patient notes he is nauseous at this time, denies fevers, cough, abd pain, diarrhea, voiding symptoms. HPI limited due to trach, difficult for patient to communicate but can answer yes or no questions PMH/ PSH/ SH reviewed in EMR, patient unable to corroborate Past Medical History: Diagnosis Date ??? Cerebrovascular disease ??? HTN (hypertension) ??? Seizure (CMS/HCC) Past Surgical History: Procedure Laterality Date ??? [...] Smoking status: Former Packs/day: 1.00 Years: 15.00 Pack years: 15.00 Types: Cigarettes ??? Smokeless tobacco: [...] No Stress: No Stress Concern Present (11/28/2022) [employer] - Occupational Stress Questionnaire ??? Feeling of Stress : Not at all Housing Stability: Low Risk (11/28/2022) Housing Stability Vital Sign ??? Unable to Pay for Housing in the Last Year: No ??? Number of Places Lived in the Last Year: 1 ??? Unstable Housing in the Last Year: No Review of Systems: Pertinent ROS as per HPI Vitals: 02/23/23 0139 BP: 128/77 Pulse: 61 Resp: 20 Temp: 98 ??F (36.7 ??C) SpO2: 95% Exam: Constitutional: cachetic elderly male, no acute distress HENT: normocephalic, atraumatic, moist oral mucosa, poor oral hygiene Eyes: PERRL, EOMI, conjunctiva normal Neck: supple, normal ROM, trach site clean Cardiovascular: regular rhythm, rate 60's, no gallops, murmurs, or rubs Respiratory: no respiratory distress, clear to auscultation bilaterally Abdomen: positive bowel sounds, mild diffuse tenderness, + distention with tympany. Feeding tube inLUQ, no drainage or erythema at insertion site, jejunal port is leaking green fluid, no notable fluid in gastric port Genitourinary: deferred Musculoskeletal: Left AKA, otherwise no gross deformities or bony tenderness to palpation, FROM throughout, radial pulses 2+ bilaterally Skin: warm, dry, no rashes Neurological: awake, alert&OX3, CNI, sensation intact to light touch in all extremities, MARADIAGA Medical Decision Makin. Feeding tube issue Differential diagnosis considered: Feeding tube malfunction versus SBO versus other primary GI process versus dehydration from being unable to feed versus other Plan: Unable to aspirate or flush, odd that there would be fluid refluxing back through jejunal port if clogged, will do medical workup and look for for replacement feeding tube, labs, XR, symptom management, reassess Results: Labs Reviewed COMPREHENSIVE METABOLIC PANEL CBC W AUTO DIFFERENTIAL LIPASE BLOOD MAGNESIUM BLOOD PHOSPHORUS BLOOD XR ABD OBSTR SERIES W CHEST 1VW (Results Pending) CT CHEST ABDOMEN PELVIS WO CONT (Results Pending) ED course: The patient's Oxygen Saturation Monitor was interpreted by me. The reading was 95 %. The patient was on RA at the time of the reading. This is interpreted as norm for some free al. 3:30 a.m.: Unable to find appropriate G-J tube. 4:31 a.m.: Called by radiology that obstructive series is concerning for free air below the liver. As a result, they are requesting a CT for additional characterization, I concur with this and will order CT chest abdomen pelvis with contrast. . 6:00 a.m.: WILSON to Dr. Hanson pending CT chest abdomen pelvis, labs, GJ tube. Consult No Procedure done at this time Yes Ultrasound done at this time No CRITICAL CARE IN THE ED No Orders and Medicine administered during this encounter: Orders Placed This Encounter ??? XR ABD OBSTR SERIES W CHEST 1VW ??? CT CHEST ABDOMEN PELVIS WO CONT ??? COMPREHENSIVE METABOLIC PANEL ??? CBC W AUTO DIFFERENTIAL ??? LIPASE BLOOD ??? MAGNESIUM BLOOD ??? PHOSPHORUS BLOOD ??? dextrose 5 % and 0.45 % NaCl with KCl 20 mEq infusion ??? AND Linked Order Group ??? 0.9% NaCl injection 3 mL ??? 0.9% NaCl injection 1-10 mL ??? ondansetron (Zofran) injection 4 mg Medications dextrose 5 % and 0.45 % NaCl with KCl 20 mEq infusion (has no administration in time range) 0.9% NaCl injection 3 mL (has no administration in time range) And 0.9% NaCl injection 1-10 mL (has no administration in time range) ondansetron (Zofran) injection 4 mg (has no administration in time range) Clinical Impression: 1. PEG tube malfunction (CMS/HCC) 2. Peritoneal free air 3. Nausea without vomiting Disposition: Pending, WILSON to Dr. Hanson. By signing my name below, I, Toan Garrido, attest that this documentation has been prepared under the direction and in the presence of Dr. Vega. Signed: Simin Powere I, Dr. Vega, personally performed the services described in this documentation. All medical record entries made by the scribe were at my direction and in my presence. I have reviewed the chart and agree that the record reflects my personal performance and is accurate and complete. Electronically signed: Kortney Vega MD, MPH * Melany Partida RN - 02/23/2023 1:39 AM CDT [facility] for PEG tube malfunction. Per EMS, CT staff statesPEG tube has been nonfunctional for at least [address] staff attempted to administer medications this PM and were unsuccessful. CT states PEG tube won't flush. Family wanted pt transported to hospital. PMHx CVA documented in this encounter Plan of Treatment Upcoming Encounters Date Type Department Care Team (Late st Contact Info) Description 12/05/2024 1:00 PM CDT Office Visit [facility] - Neurology [address] [place] [address], [place] [address] Sean Raymundo, [address] [place] [address] [place] [address] Scheduled Orders Name Type Priority Associated Diagnoses Orde r Schedule OXYGEN WITH TITRATION PROTOCOL Respiratory Care Routine ONCE for 1 Occurrences starting 02/24/2023 until 02/24/2023 documented as of this encounter Procedures Procedure Name Priority Date/Time Associated Diagnosis Comments PROCALCITONIN LEVEL AM Draw 02/28/2023 5 :41 AM CDT CBC W/O DIFFERENTIAL Routine 02/28/2023 5:41 AM CDT RENAL FUNCTION PANEL AM Draw 02/28/2023 5:41 AM CDT ALT AM Draw 02/28/2023 5:41 AM CDT AST BLOOD AM Draw 02/28/2023 5:41 AM CDT PROTEIN TOTAL BLOOD AM Draw 02/28/2023 5 :41 AM CDT MAGNESIUM BLOOD Routine 02/28/2023 5:41 AM CDT BILIRUBIN TOTAL+DIRECT BLOOD PANEL AM Draw 02/28/2023 5:41 AM CDT ALKALINE PHOSPHATASE BLOOD AM Draw 02/28/2023 5:41 AM CDT CULTURE SPUTUM+GRAM STAIN Routine 02/27/2023 11:16 AM CDT CBC W/O DIFFERENTIAL Routine 02/27/2023 4:27 AM CDT BASIC METABOLIC PANEL (CALCIUM TOTAL) Routine 02/27/2023 4:27 AM CDT PHOSPHORUS BLOOD Routine 02/27/2023 4:27 AM CDT MAGNESIUM BLOOD Routine 02/27/2023 4:27 AM CDT BASIC METABOLIC PANEL (CALCIUM TOTAL) STAT 02/26/2023 4:19 PM CDT XR CHEST 1VW PORTABLE Routine 02/26/2023 2:44 PM CDT HAP (hospital-acquired pneumonia) OT EVAL AND TREAT Routine 02/26/2023 8:0 9 AM CDT PT EVAL AND TREAT Routine 02/26/2023 8:0 9 AM CDT IR PERC G TO GJ TUBE EXCHANGE Routine 02/25/2023 4:29 PM CDT Delayed gastric emptying Aspiration into airway, sequela Dysphagia, oropharyngeal phase CBC W/O DIFFERENTIAL AM Draw 02/25/2023 4:34 AM CDT Protein-calorie malnutrition, unspecified severity (HCC) RENAL FUNCTION PANEL AM Draw 02/25/2023 4:34 AM CDT Protein-calorie malnutrition, unspecified severity (HCC) MAGNESIUM BLOOD Routine 02/25/2023 4:34 AM CDT Protein-calorie malnutrition, unspecified severity (HCC) PT-INR [facility] Routine 02/24/2023 10:32 AM CDT BASIC METABOLIC PANEL (CALCIUM TOTAL) Routine 02/24/2023 10:32 AM CDT MAGNESIUM BLOOD Routine 02/24/2023 10:32 AM CDT CBC W/O DIFFERENTIAL Routine 02/24/2023 6:36 AM CDT PHOSPHORUS BLOOD Routine 02/24/2023 6:36 AM CDT PROCALCITONIN LEVEL STAT 02/23/2023 1 :03 PM CDT Aspiration into airway, subsequent encounter CT CHEST ABDOMEN PELVIS WO CONT STAT 02/23/2023 5:58 AM CDT PEG tube malfunction (HCC) CBC W AUTO DIFFERENTIAL STAT 02/23/2023 5:35 AM CDT COMPREHENSIVE METABOLIC PANEL STAT 02/23/2023 5:35 AM CDT PHOSPHORUS BLOOD STAT 02/23/2023 5:35 AM CDT MAGNESIUM BLOOD STAT 02/23/2023 5:35 AM CDT LIPASE BLOOD STAT 02/23/2023 5:35 AM CDT XR ABD OBSTR SERIES W CHEST 1VW STAT 02/23/2023 4:13 AM CDT PEG tube malfunction (HCC) documented in this encounter Results * PROTEIN TOTAL BLOOD (02/28/2023 5:41 AM CDT) Protein Total 6.5 6.0 - 8.3 g/dL 02/28/2023 7:37 AM CDT [facility] Blood BLOOD SPECIMEN / Unknown Lab Venipuncture / Unknown 02/28/2023 5:41 AM CDT 02/28/2023 6:57 AM CDT Cami Worthington MD LAB - CHEMISTRY MARSHAL MEDEROS [facility] [address] [place] [address], [place] [phone] * BILIRUBIN TOTAL+DIRECT BLOOD PANEL (02/28/2023 5:41 AM CDT) Bilirubin Total 0.2 0.2 - 1.2 mg/dL 06/2022 7:38 AM CDT [facility] Bilirubin Conjugated 0.1 0.1 - 0.5 mg/dL 02/28/2023 7:38 AM CDT [facility] Bilirubin Unconjugated 0.1 Unconjugated Bilirubin is a calculated value: Reference ranges have not been established. mg/dL 02/28/2023 7:38 AM CDT [facility] Blood BLOOD SPECIMEN / Unknown Lab Venipuncture / Unknown 02/28/2023 5:41 AM CDT 02/28/2023 6:57 AM CDT Cami Worthington MD LAB - CHEMISTRY MARSHAL [facility]EROS [facility] [address] [place] [address], [place] [phone] * AST BLOOD (02/28/2023 5:41 AM CDT) AST 13 5 - 34 U/L 02/28/2023 7:37 AM CDT [facility] Blood BLOOD SPECIMEN / Unknown Lab Venipuncture / Unknown 02/28/2023 5:41 AM CDT 02/28/2023 6:57 AM CDT Cami Worthington MD LAB - CHEMISTRY MARSHAL [facility]ER[facility] [address] [place] [address], [place] [phone] * ALT (02/28/2023 5:41 AM CDT) Pathologist [facility] ALT 7 5 - 55 U/L 02/28/2023 7:37 AM CDT [facility] Blood BLOOD SPECIMEN / Unknown Lab Venipuncture / Unknown 02/28/2023 5:41 AM CDT 02/28/2023 6:57 AM CDT Cami Worthington MD LAB - CHEMISTRY MARSHAL MEDEROS [address] [address], [facility] [phone] * ALKALINE PHOSPHATASE BLOOD (02/28/2023 5:41 AM CDT) [facility] Alkaline Phosphatase 79 40 - 150 U/L 02/28/2023 7:37 AM CDT [facility] Blood BLOOD SPECIMEN / Unknown Lab Venipuncture / Unknown 02/28/2023 5:41 AM CDT 02/28/2023 6:57 AM CDT Cami Worthington MD LAB - CHEMISTRY MARSHAL MEDEROS [address] [address], [place] [phone] * (ABNORMAL) RENAL FUNCTION PANEL (02/28/2023 5:41 AM CDT) [facility] BUN 9 7 - 26 mg/dL 02/28/2023 7:25 AM [facility] Creatinine 0.41(L) 0.71 - 1.16 mg/dL 02/28/2023 7:25 AM [facility] Sodium 138 136 - 145 mmol/L 02/28/2023 7:25 AM [facility] Potassium 4.7(H) 3.5 - 4.5 mmol/L 02/28/2023 7:25 AM [facility] Chloride 107 98 - 107 mmol/L 02/28/2023 7:25 AM [facility] CO2 27 22 - 29 mmol/L 02/28/2023 7:25 AM [facility] Glucose 83 70 - 115 mg/dL 02/28/2023 7:25 AM [facility] Albumin 2.5(L) 3.4 - 5.0 g/dL 02/28/2023 7:25 AM [facility] Calcium 9.2 8.4 - 10.2 mg/dL 02/28/2023 7:25 AM [facility] Phosphorus 2.9 2.8 - 5.1 mg/dL 02/28/2023 7:25 AM [facility] Anion Gap 4(L) 6 - 16 02/28/2023 7:25 AM [facility] BUN/Creatinine Ratio 22 7 - 23 02/28/2023 7:25 AM [facility] Osmolality Calculated 284 275 - 295 mOsm/kg 02/28/2023 7:25 AM [facility] eGFR by CKD-EPI >90 >=90 mL/min/1.7 3 m2 02/28/2023 7:25 AM [facility] Blood BLOOD SPECIMEN / Unknown Lab Venipuncture / Unknown 02/28/2023 5:41 AM CDT 02/28/2023 6:57 AM CDT Cami Worthington MD LAB - CHEMISTRY MARSHAL MEDEROS [address] [address], [facility] [phone] * MAGNESIUM BLOOD (02/28/2023 5:41 AM CDT) Magnesium 1.8 1.6 - 2.6 mg/dL 02/28/2023 7:37 AM T [facility] Blood BLOOD SPECIMEN / Unknown Lab Venipuncture / Unknown 02/28/2023 5:41 AM CDT 02/28/2023 6:57 AM CDT Westley Corley MD LAB - CHEMISTRY MRASHAL MEDEROS Performing Organization Address City/[facility]/ZIP Co de Phone Number [address] [address], [place] [phone] * (ABNORMAL) CBC W/O DIFFERENTIAL (02/28/2023 5:41 AM CDT) WBC 5.4 3.5 - 10.5 10? 3 /uL 02/28/2023 7:08 AM [facility] RBC 3.75(L) 4.30 - 5.70 10? 6 /uL 02/28/2023 7:08 AM [facility] Hemoglobin 11.7(L) 12.0 - 17.6 g/dL 02/28/2023 7:08 AM [facility] Hematocrit 36.0 35.2 - 51.7 % 02/28/2023 7:08 AM [facility] MCV 96.0 80.7 - 98.3 fL 02/28/2023 7:08 AM [facility] MCH 31.2 26.7 - 34.0 pg 02/28/2023 7:08 AM [facility] MCHC 32.5 30.8 - 35.9 g/dL 02/28/2023 7:08 AM [facility] RDW-SD 52.4(H) 36.0 - 50.0 fL 02/28/2023 7:08 AM [facility] RDW-CV 14.9(H) 11.2 - 14.8 % 02/28/2023 7:08 AM [facility] Platelet Count 160 150 - 400 10? 3 /uL 02/28/2023 7:08 AM [facility] MPV 13.0(H) 9.4 - 12.9 fL 02/28/2023 7:08 AM [facility] Immature Platelet Fraction 11.6(H) 1.1 - 6.2 % 02/28/2023 7:08 AM [facility] nRBC Absolute 0.00 0 10? 3 /uL 02/28/2023 7:08 AM [facility] nRBC Auto 0.0 0 /100 WBC 02/28/2023 7:08 AM [facility] Blood BLOOD SPECIMEN / Unknown Lab Venipuncture / Unknown 02/28/2023 5:41 AM CDT 02/28/2023 6:57 AM CDT Westley Corley MD LAB - HEMATOLOGY ORD ERABLES [facility] [address] [place] [id number], [facility] [phone] * PROCALCITONIN LEVEL (02/28/2023 5:41 AM CDT) PROCALCITONIN <0.02 <=0.10 ng/mL 02/28/2023 8:42 AM CDT [facility] Blood BLOOD SPECIMEN / Unknown Lab Venipuncture / Unknown 02/28/2023 5:41 AM CDT 02/28/2023 6:51 AM CDT Narrative [facility] - 02/28/2023 8:42 AM CDT The change [...] Change in Procalcitonin Calculator is available at [email or web address] ?? If clinical picture has not improved and PCT remains high, reevaluate and consider treatment failure or other causes. Cami Worthington MD LAB - CHEMISTRY MARSHAL MEDEROS [facility] [address] [place] [address], [place] [phone] * (ABNORMAL) CULTURE SPUTUM+GRAM STAIN (02/27/2023 11:16 AM CDT) [facility] Culture Light Pseudomonas aeruginosa(A) JELLY 03/03/2023 2:44 AM CDT [facility] Comment: Isolate is multi drug resistant organism (MDRO). Isolate is carbapenem resistant Culture Light normal oropharyngeal heidi JELLY 03/03/2023 2:44 AM CDT [facility] Gram Stain Light Polymorphonuclear cells 03/03/2023 2:44 AM CDT [facility] Gram Stain Moderate Gram-positive bacilli 03/03/2023 2:44 AM CDT [facility] Gram Stain Light Gram-negative bacilli 03/03/2023 2:44 AM CDT [facility] Microbiology SPECIMEN FROM ENDOTRACHEAL TUBE / Unknown Collection / Unknown 02/27/2023 11:16 AM CDT 02/27/2023 11:30 AM CDT Narrative [facility] - 03/03/2023 2:44 AM CDT This isolate is carbapenem resistant. Contact precautions required. Infectious Disease consult recommended. This isolate is a multidrug resistant organism (MDRO). MDROs are resistant to 3 or more classes of antibiotics. Contact Precautions required. Infectious Diseases consult recommended. Organism Antibiotic Method Susceptibility Pseudomonas aeruginosa Piperacillin-tazobactam KB Intermediate Pseudomonas aeruginosa Amikacin JELLY 16 ug/mL: Susceptible Pseudomonas aeruginosa Cefepime JELLY >=64 ug/mL: Resistant Pseudomonas aeruginosa Ceftazidime JELLY 16 ug/mL: Intermediate Pseudomonas aeruginosa Ciprofloxacin JELLY 2 ug/mL: Resistant Pseudomonas aeruginosa Meropenem JELLY 4 ug/mL: Intermediate Pseudomonas aeruginosa Tobramycin JELLY 2 ug/mL: Susceptible Cami Worthington MD LAB - MICROBIOLOGY O RDERALETTY [facility] [address] [place], [place] [id number] [place] [address] * (ABNORMAL) PHOSPHORUS BLOOD (02/27/2023 4:27 AM CDT) Phosphorus 2.3(L) 2.8 - 5.1 mg/dL 02/27/2023 7:03 AM CDT [facility] Blood BLOOD SPECIMEN / Unknown Lab Venipuncture / Unknown 02/27/2023 4:27 AM CDT 02/27/2023 6:14 AM CDT Westley Corley MD LAB - CHEMISTRY MARSHAL MEDEROS [address] [address], [facility] [phone] * MAGNESIUM BLOOD (02/27/2023 4:27 AM CDT) Magnesium 1.7 1.6 - 2.6 mg/dL 02/27/2023 6:44 AM CDT [facility] Blood BLOOD SPECIMEN / Unknown Lab Venipuncture / Unknown 02/27/2023 4:27 AM CDT 02/27/2023 6:14 AM CDT Westley Corley MD LAB - CHEMISTRY MARSHAL MEDEROS [address] [address], [facility] [phone] * (ABNORMAL) BASIC METABOLIC PANEL (CALCIUM TOTAL) (02/27/2023 4:27 AM CDT) BUN 11 7 - 26 mg/dL 02/27/2023 6:44 AM CDT [facility] Creatinine 0.42(L) 0.71 - 1.16 mg/dL 02/27/2023 6:44 AM CDT [facility] Sodium 138 136 - 145 mmol/L 02/27/2023 6:44 AM CDT [facility] Potassium 4.6(H) 3.5 - 4.5 mmol/L 02/27/2023 6:44 AM CDT [facility] Chloride 107 98 - 107 mmol/L 02/27/2023 6:44 AM [facility] CO2 26 22 - 29 mmol/L 02/27/2023 6:44 AM [facility] Glucose 94 70 - 115 mg/dL 02/27/2023 6:44 AM [facility] Calcium 8.8 8.4 - 10.2 mg/dL 02/27/2023 6:44 AM [facility] Anion Gap 5(L) 6 - 16 02/27/2023 6:44 AM [facility] BUN/Creatinine Ratio 26(H) 7 - 23 02/27/2023 6:44 AM [facility] Osmolality Calculated 285 275 - 295 mOsm/kg 02/27/2023 6:44 AM [facility] eGFR by CKD-EPI >90 >=90 mL/min/1.7 3 m2 02/27/2023 6:44 AM [facility] Blood BLOOD SPECIMEN / Unknown Lab Venipuncture / Unknown 02/27/2023 4:27 AM CDT 02/27/2023 6:14 AM T Westley Corley MD LAB - CHEMISTRY ORDE [facility] Organization Address City/State/ZIP Co de Phone Number [facility] [address] [place] [phone], [facility] [phone] * (ABNORMAL) CBC W/O DIFFERENTIAL (02/27/2023 4:27 AM CDT) WBC 5.9 3.5 - 10.5 10? 3 /uL 02/27/2023 6:41 AM [facility] RBC 3.83(L) 4.30 - 5.70 10? 6 /uL 02/27/2023 6:41 AM [facility] Hemoglobin 12.0 12.0 - 17.6 g/dL 02/27/2023 6:41 AM [facility] Hematocrit 35.9 35.2 - 51.7 % 02/27/2023 6:41 AM [facility] MCV 93.7 80.7 - 98.3 fL 02/27/2023 6:41 AM [facility] MCH 31.3 26.7 - 34.0 pg 02/27/2023 6:41 AM [facility] MCHC 33.4 30.8 - 35.9 g/dL 02/27/2023 6:41 AM [facility] RDW-SD 51.0(H) 36.0 - 50.0 fL 02/27/2023 6:41 AM [facility] RDW-CV 14.8 11.2 - 14.8 % 02/27/2023 6:41 AM [facility] Platelet Count 171 150 - 400 10? 3 /uL 02/27/2023 6:41 AM [facility] MPV 02/27/2023 6:41 AM [facility] Comment:Unable to Report Immature Platelet Fraction 8.8(H) 1.1 - 6.2 % 02/27/2023 6:41 AM [facility] nRBC Absolute 0.00 0 10? 3 /uL 02/27/2023 6:41 AM [facility] nRBC Auto 0.0 0 /100 WBC 02/27/2023 6:41 AM [facility] Blood BLOOD SPECIMEN / Unknown Lab Venipuncture / Unknown 02/27/2023 4:27 AM CDT 02/27/2023 6:19 AM CDT Westley Corley MD LAB - HEMATOLOGY ORD ERABLES [facility] [address] [place] [phone], [facility] [phone] * (ABNORMAL) BASIC METABOLIC PANEL (CALCIUM TOTAL) (02/26/2023 4:19 PM CDT) BUN 9 7 - 26 mg/dL 02/26/2023 4:59 PM [facility] Creatinine 0.38(L) 0.71 - 1.16 mg/dL 02/26/2023 4:59 PM [facility] Sodium 137 136 - 145 mmol/L 02/26/2023 4:59 PM [facility] Potassium 4.3 3.5 - 4.5 mmol/L 02/26/2023 4:59 PM CDT [facility] Chloride 105 98 - 107 mmol/L 02/26/2023 4:59 PM T [facility] CO2 26 22 - 29 mmol/L 02/26/2023 4:59 PM T [facility] Glucose 114 70 - 115 mg/dL 02/26/2023 4:59 PM T [facility] Calcium 9.3 8.4 - 10.2 mg/dL 02/26/2023 4:59 PM T [facility] Anion Gap 6 6 - 16 02/26/2023 4:59 PM T [facility] BUN/Creatinine Ratio 24(H) 7 - 23 02/26/2023 4:59 PM T [facility] Osmolality Calculated 284 275 - 295 mOsm/kg 02/26/2023 4:59 PM T [facility] eGFR by CKD-EPI >90 >=90 mL/min/1.7 3 m2 02/26/2023 4:59 PM T [facility] Blood BLOOD SPECIMEN / Unknown Lab Venipuncture / Unknown 02/26/2023 4:19 PM CDT 02/26/2023 4:34 PM CDT Shweta Wagner MD LAB - CHEMISTRY ORDERABLES Performing Organization Address [facility]/State/[facility] Co de Phone Number [facility] [address] [place] [address], [facility] [phone] * XR CHEST 1VW PORTABLE (02/26/2023 2:44 PM CDT) Anatomical Region Laterality Modality Chest Radiographic Cynthia ging 02/27/2023 9:49 AM CDT Narrative 02/27/2023 11:42 AM CDT PROCEDURE: ??XR CHEST 1VW PORTABLE, DATE/TIME OF EXAM: ??02/26/2023 2:45 PM, LOCATION ??[facility] INDICATION: J18.9: HAP (hospital-acquired pneumonia) Y95: HAP (hospital-acquired pneumonia) ADDITIONAL CLINICAL INFORMATION: Ordering Provider Reason For Exam: ??secretions COMPARISON: Chest radiograph dated 01/12/2023, CT chest abdomen pelvis dated 02/23/2023 FINDINGS/IMPRESSION: Tracheostomy tube terminates in the midthoracic trachea. Right lower lung atelectasis and sequela of aspiration. No visible pleural effusion or pneumothorax. The cardiomediastinal silhouette is shifted to the right. Report dictated by Trista Rodriguez DO (certified prosthetist vice president). John Thomason MD have personally reviewed and interpreted this examination/study. > Interpreting Provider: John Graham MD on 02/27/2023 11:42 AM Procedure Note John rGaham MD - 02/27/2023 PROCEDURE: XR CHEST 1VW PORTABLE, DATE/TIME OF EXAM: 02/26/2023 2:45PM, LOCATION [facility] INDICATION: J18.9: HAP (hospital-acquired pneumonia) Y95: HAP (hospital-acquired pneumonia) ADDITIONAL CLINICAL INFORMATION: Ordering Provider Reason For Exam: secretions COMPARISON: Chest radiograph dated 01/12/2023, CT chest abdomen pelvisdated 02/23/2023 FINDINGS/IMPRESSION: Tracheostomy tube terminates in the midthoracic trachea. Right lowerlung atelectasis and sequela of aspiration. No visible pleural effusion or pneumothorax. The cardiomediastinal silhouette is shifted to the right. Report dictated by Trista Rodriguez DO (certified prosthetist vice president). John Thomason MD have personally reviewed and interpreted this examination/study. > Interpreting Provider: John Graham MD on 02/27/2023 11:42 AM Westley Corley MD DIAGNOSTIC IMAGING O RDERABLES * IR PERC G TO GJ TUBE EXCHANGE (02/25/2023 4:29 PM CDT) Anatomical Region Laterality Modality Abdomen X-Ray Angiograph y 02/25/2023 6:09 PM CDT Impressions 02/25/2023 6:12 PM CDT Impression: Successful exchange of the existing 18 Tanzanian gastrojejunostomy catheter for a new 18 Tanzanian gastrojejunostomy catheter under fluoroscopic guidance, as described [...] Diego Roe DO on 02/25/2023 6:12 PM Narrative 02/25/2023 6:12 PM CDT PROCEDURE: ??IR PERC G TO GJ TUBE EXCHANGE DATE/TIME OF EXAM: ??02/25/2023 4:29 PM Indication: K30: Delayed gastric emptying T17.908S: Aspiration into airway, sequela R13.12: Dysphagia, oropharyngeal phase Operators: 1.Dr. Juan Diego Roe, Attending Physician Anesthesia: Local - lidocaine jelly Procedure: Exchange of the existing 18 Tanzanian gastrojejunostomy catheter for a new 18 Tanzanian gastrojejunostomy catheter under fluoroscopic guidance. Fluoroscopic time: 2.3 minutes ?Contrast: 30 mL of Isovue-300 Procedure in detail: The procedure, risks, and possible complications were explained to the patient and patient's healthcare proxy in detail, and informed consent was obtained via telephone. The patient was placed supine on the procedure table. A absence management consultant film of abdomen was obtained, which showed the existing gastrojejunostomy catheter overlying the stomach, duodenum, and proximal small bowel. Contrast was hand injected through the existing catheter and showed opacification of the proximal jejunum. A 0.035 inch glidewire was advanced into the stomach through the existing catheter which was subsequently removed over the wire. A new 18 Tanzanian gastrojejunostomy catheter was then advanced over the guidewire under fluoroscopic guidance. Hand injection of contrast through the new catheter confirmed the position of catheter tip in the proximal jejunum. Sterile dressing was applied. The patient tolerated the procedure well and was transferred to the inpatient floor in stable condition. There were no immediate complications associated with the procedure. Procedure Note Juan Diego Roe MD - 02/25/2023 PROCEDURE: IR PERC G TO GJ TUBE EXCHANGE DATE/TIME OF EXAM: 02/25/2023 4:29 PM Indication: K30: Delayed gastric emptying T17.908S: Aspiration into airway, sequela R13.12: Dysphagia, oropharyngeal phase Operators: 1.Dr. Juan Diego Roe, Attending Physician Anesthesia: Local - lidocaine jelly Procedure: Exchange of the existing 18 Tanzanian gastrojejunostomy catheter for a new 18 Tanzanian gastrojejunostomy catheter under fluoroscopicguidance. Fluoroscopic time: 2.3 minutes Contrast: 30 mL of Isovue-300 Procedure in detail: The procedure, risks, and possible complications were explained to the patient and patient's healthcare proxy in detail, and informed consentwas obtained via telephone. The patient was placed supine on the procedure table. A absence management consultant film of abdomen was obtained, which showed the existing gastrojejunostomy catheter overlying the stomach, duodenum, and proximal small bowel. Contrast was hand injected through the existing catheter and showed opacification of the proximal jejunum. A 0.035 inch glidewire wasadvanced into the stomach through the existing catheter which was subsequently removed over the wire. A new 18 Tanzanian gastrojejunostomy catheter wasthen advanced over the guidewire under fluoroscopic guidance. Hand injectionof contrast through the new catheter confirmed the position of catheter tipin the proximal jejunum. Sterile dressing was applied. The patient tolerated the procedure well and was transferred to the inpatient floor in stable condition. There were no immediatecomplications associated with the procedure. Impression: Successful exchange of the existing 18 Frenchgastrojejunostomy catheter for a new 18 Tanzanian gastrojejunostomy catheter underfluoroscopic guidance, as described above. Note: The catheter can be used now. Flush the catheter with 10 mL ofsaline three times daily and after each use. [...] Diego Roe DO on 02/25/2023 6:12 PM Lula FERNANDEZ IR ORDERABLES * (ABNORMAL) RENAL FUNCTION PANEL (02/25/2023 4:34 AM CDT) Pathologist [facility] BUN 9 7 - 26 mg/dL 02/25/2023 5:18 AM CDT [facility] Creatinine 0.46(L) 0.71 - 1.16 mg/dL 02/25/2023 5:18 AM [facility] Sodium 138 136 - 145 mmol/L 02/25/2023 5:18 AM [facility] Potassium 4.1 3.5 - 4.5 mmol/L 02/25/2023 5:18 AM [facility] Chloride 109(H) 98 - 107 mmol/L 02/25/2023 5:18 AM [facility] CO2 21(L) 22 - 29 mmol/L 02/25/2023 5:18 AM [facility] Glucose 77 70 - 115 mg/dL 02/25/2023 5:18 AM [facility] Albumin 2.5(L) 3.4 - 5.0 g/dL 02/25/2023 5:18 AM [facility] Calcium 9.5 8.4 - 10.2 mg/dL 02/25/2023 5:18 AM [facility] Phosphorus 3.1 2.8 - 5.1 mg/dL 02/25/2023 5:18 AM [facility] Anion Gap 8 6 - 16 02/25/2023 5:18 AM [facility] BUN/Creatinine Ratio 20 7 - 23 02/25/2023 5:18 AM [facility] Osmolality Calculated 283 275 - 295 mOsm/kg 02/25/2023 5:18 AM [facility] eGFR by CKD-EPI >90 >=90 mL/min/1.7 3 m2 02/25/2023 5:18 AM [facility] Blood BLOOD SPECIMEN / Unknown Lab Venipuncture / Unknown 02/25/2023 4:34 AM CDT 02/25/2023 4:46 AM CDT Clover Cash PA-C LAB - CHEMISTRY ORDERABLES [facility] [address] [place] [address], [facility] [phone] * (ABNORMAL) MAGNESIUM BLOOD (02/25/2023 4:34 AM CDT) Magnesium 1.4(L) 1.6 - 2.6 mg/dL 02/25/2023 5:18 AM [facility] Blood BLOOD SPECIMEN / Unknown Lab Venipuncture / Unknown 02/25/2023 4:34 AM CDT 02/25/2023 4:46 AM CDT Clover Cash PA-C LAB - CHEMISTRY ORDERABLES [facility] [address] [place] [phone] [phone] * (ABNORMAL) CBC W/O DIFFERENTIAL (02/25/2023 4:34 AM CDT) WBC 4.7 3.5 - 10.5 10? 3 /uL 02/25/2023 7:18 AM [facility] RBC 4.18(L) 4.30 - 5.70 10? 6 /uL 02/25/2023 7:18 AM [facility] Hemoglobin 13.3 12.0 - 17.6 g/dL 02/25/2023 7:18 AM [facility] Hematocrit 39.6 35.2 - 51.7 % 02/25/2023 7:18 AM [facility] MCV 94.7 80.7 - 98.3 fL 02/25/2023 7:18 AM [facility] MCH 31.8 26.7 - 34.0 pg 02/25/2023 7:18 AM [facility] MCHC 33.6 30.8 - 35.9 g/dL 02/25/2023 7:18 AM [facility] RDW-SD 49.9 36.0 - 50.0 fL 02/25/2023 7:18 AM [facility] RDW-CV 14.4 11.2 - 14.8 % 02/25/2023 7:18 AM [facility] Platelet Count 02/25/2023 7:18 AM [facility] Comment:Platelets are clumpe d, appear as decreased on the slide. MPV 02/25/2023 7:18 AM [facility] Comment:Unable to Report Immature Platelet Fraction 02/25/2023 7:18 AM [facility] Comment:Unable to Report nRBC Absolute 0.00 0 10? 3 /uL 02/25/2023 7:18 AM CDT [facility] nRBC Auto 0.0 0 /100 WBC 02/25/2023 7:18 AM CDT [facility] Blood BLOOD SPECIMEN / Unknown Lab Venipuncture / Unknown 02/25/2023 4:34 AM CDT 02/25/2023 4:49 AM CDT Narrative [facility] - 02/25/2023 7:18 AM CDT A blue top citrated tube is required for a platelet count. Clover Cash PA-C LAB - HEMATOLOGY ORDERABLES Performing Organization Address City/[facility]/ZIP Co de Phone Number [address] [address], [facility] [phone] * PT-INR [facility] (02/24/2023 10:32 AM CDT) PT 14.1 12.1 - 14.8 Seconds 02/24/2023 11:06 AM T [facility] INR 1.1 See Comment 02/24/2023 11:06 AM CDT [facility] Comment:The suggested therap eutic range for standard coumadin (warfarin) therapy is an INR of 2.0-3.0. For high-risk patients (Mechanical Mitral Valve Prosthesis, etc.), the suggested prophylactic therapeutic range is an INR of 2.5-3.5. Blood BLOOD SPECIMEN / Unknown Venipuncture / Unknown 02/24/2023 10:32 AM CDT 02/24/2023 10:39 AM CDT Leonardo Hanson MD LAB - COAGULATION OR DERABLES [address] [address], [facility] [phone] * (ABNORMAL) MAGNESIUM BLOOD (02/24/2023 10:32 AM CDT) Magnesium 1.4(L) 1.6 - 2.6 mg/dL 02/24/2023 11:09 AM [facility] Blood BLOOD SPECIMEN / Unknown Venipuncture / Unknown 02/24/2023 10:32 AM CDT 02/24/2023 10:39 AM CDT Leonardo Hanson MD LAB - CHEMISTRY [facility]SHAL [facility]ER[facility] Organization Address City/State/ZIP Co de Phone Number [facility] [address] [place] [address], [facility] [phone] * (ABNORMAL) BASIC METABOLIC PANEL (CALCIUM TOTAL) (02/24/2023 10:32 AM CDT) BUN 9 7 - 26 mg/dL 02/24/2023 11:09 AM [facility] Creatinine 0.44(L) 0.71 - 1.16 mg/dL 02/24/2023 11:09 AM [facility] Sodium 137 136 - 145 mmol/L 02/24/2023 11:09 AM [facility] Potassium 3.7 3.5 - 4.5 mmol/L 02/24/2023 11:09 AM [facility] Chloride 107 98 - 107 mmol/L 02/24/2023 11:09 AM [facility] CO2 24 22 - 29 mmol/L 02/24/2023 11:09 AM [facility] Glucose 96 70 - 115 mg/dL 02/24/2023 11:09 AM [facility] Calcium 9.6 8.4 - 10.2 mg/dL 02/24/2023 11:09 AM [facility] Anion Gap 6 6 - 16 02/24/2023 11:09 AM [facility] BUN/Creatinine Ratio 20 7 - 23 02/24/2023 11:09 AM [facility] Osmolality Calculated 283 275 - 295 mOsm/kg 02/24/2023 11:09 AM [facility] eGFR by CKD-EPI >90 >=90 mL/min/1.7 3 m2 02/24/2023 11:09 AM [facility] Blood BLOOD SPECIMEN / Unknown Venipuncture / Unknown 02/24/2023 10:32 AM CDT 02/24/2023 10:39 AM CDT Leonardo Hanson MD LAB - CHEMISTRY [facility]SHAL [facility]ER[facility] Organization Address City/State/ZIP Co de Phone Number [facility] [address] [place] [phone], [facility] [phone] * (ABNORMAL) CBC W/O DIFFERENTIAL (02/24/2023 6:36 AM CDT) WBC 7.1 3.5 - 10.5 10? 3 /uL 02/24/2023 7:44 AM [facility] RBC 4.09(L) 4.30 - 5.70 10? 6 /uL 02/24/2023 7:44 AM [facility] Hemoglobin 12.8 12.0 - 17.6 g/dL 02/24/2023 7:44 AM [facility] Hematocrit 39.7 35.2 - 51.7 % 02/24/2023 7:44 AM [facility] MCV 97.1 80.7 - 98.3 fL 02/24/2023 7:44 AM [facility] MCH 31.3 26.7 - 34.0 pg 02/24/2023 7:44 AM [facility] MCHC 32.2 30.8 - 35.9 g/dL 02/24/2023 7:44 AM [facility] RDW-SD 52.0(H) 36.0 - 50.0 fL 02/24/2023 7:44 AM [facility] RDW-CV 14.8 11.2 - 14.8 % 02/24/2023 7:44 AM [facility] Platelet Count 02/24/2023 7:44 AM [facility] Comment: Platelets are clumped, appear as decreased on the slide. ?? Notified Ritesh Johnson RN at 0744 on 02/24/23. MPV 02/24/2023 7:44 AM [facility] Comment: NOT MEASURED Immature Platelet Fraction 02/24/2023 7:44 AM [facility] Comment:Unable to Report nRBC Absolute 0.00 0 10? 3 /uL 02/24/2023 7:44 AM CDT [facility] nRBC Auto 0.0 0 /100 WBC 02/24/2023 7:44 AM CDT [facility] Blood BLOOD SPECIMEN / Unknown Venipuncture / Unknown 02/24/2023 6:36 AM CDT 02/24/2023 6:45 AM CDT Leonardo Hanson MD LAB - HEMATOLOGY ORD ERABLES Performing Organization Address City/[facility]/ZIP Co de Phone Number [address] [phone], [facility] [phone] * PHOSPHORUS BLOOD (02/24/2023 6:36 AM CDT) Phosphorus 3.6 2.8 - 5.1 mg/dL 02/24/2023 7:26 AM CDT [facility] Blood BLOOD SPECIMEN / Unknown Venipuncture / Unknown 02/24/2023 6:36 AM CDT 02/24/2023 6:45 AM CDT Leonardo Hanson MD LAB - CHEMISTRY ORDE RABSHILPA Performing Organization Address [facility]/ZIP Co de Phone Number [address] [address], [facility] [phone] * PROCALCITONIN LEVEL (02/23/2023 1:03 PM CDT) PROCALCITONIN <0.02 <=0.10 ng/mL 02/23/2023 2:26 PM CDT [facility] Blood BLOOD SPECIMEN / Unknown Venipuncture / Unknown 02/23/2023 1:03 PM CDT 02/23/2023 1:10 PM CDT Narrative [facility] - 02/23/2023 2:26 PM CDT The change in procalcitonin (PCT) concentration [...] Change in Procalcitonin Calculator is available at [email or web address]-ULV-Btsdgrbfro.Muse ?? If clinical picture has not improved and PCT remains high, reevaluate and consider treatment failure or other causes. Leonardo Hanson MD LAB - CHEMISTRY [facility]AL [facility]ER[facility] Organization Address City/State/ZIP Co de Phone Number [address] [address], [facility] [phone] * CT CHEST ABDOMEN PELVIS WO CONT [...] verification. > Dictated by Nash Arreola MD (certified prosthetist vice president). I, Bebo Kuo MD have personally reviewed and interpreted this examination/study. > Interpreting Provider: Bebo Kuo MD on 02/23/2023 8:19 AM Narrative 02/23/2023 8:19 AM CDT PROCEDURE: ??CT CHEST ABDOMEN PELVIS WO CONT, DATE/TIME OF EXAM: ??02/23/2023 5:59 AM, LOCATION ??[facility] INDICATION: K94.23: PEG tube malfunction (CMS/HCC) ADDITIONAL [...] CONT, DATE/TIME OF EXAM:02/23/2023 5:59 AM, LOCATION [facility] INDICATION: K94.23: PEG tube malfunction (CMS/HCC) ADDITIONAL [...] verification. > Dictated by Nash Arreola MD (certified prosthetist vice president). I, Abdulgege Kuo MD have personally reviewed and interpreted this examination/study. > Interpreting Provider: Bebo Kuo MD on 38:[address] AM [address] ORDERABLES * PHOSPHORUS BLOOD (02/23/2023 5:35 AM CDT) Phosphorus 3.0 2.8 - 5.1 mg/dL 02/23/2023 6:06 AM CDT [facility] Blood BLOOD SPECIMEN / Unknown Venipuncture / Unknown 02/23/2023 5:35 AM CDT 02/23/2023 5:40 AM CDT Kortney Vega MD LAB - CHEMISTRY [facility] [address] [phone], [facility] [phone] * MAGNESIUM BLOOD (02/23/2023 5:35 AM CDT) Magnesium 1.8 1.6 - 2.6 mg/dL 02/23/2023 6:05 AM CDT [facility] Blood BLOOD SPECIMEN / Unknown Venipuncture / Unknown 02/23/2023 5:35 AM CDT 02/23/2023 5:40 AM CDT Kortney Vega MD LAB - CHEMISTRY [facility] [address] [address], [facility] [phone] * LIPASE BLOOD (02/23/2023 5:35 AM CDT) Lipase 17 8 - 78 U/L 02/23/2023 6:05 AM CDT [facility] Blood BLOOD SPECIMEN / Unknown Venipuncture / Unknown 02/23/2023 5:35 AM CDT 02/23/2023 5:40 AM CDT Narrative [facility] - 02/23/2023 6:05 AM CDT Lipase results from the [employer] Alinity analyzer may not be comparable with other methodologies. Kortney Vega MD LAB - CHEMISTRY [facility]SHAL [facility]ER[facility] Organization Address City/State/ZIP Co de Phone Number [facility] [address] [place] [phone], [facility] [phone] * (ABNORMAL) CBC W AUTO DIFFERENTIAL (02/23/2023 5:35 AM CDT) WBC 6.1 3.5 - 10.5 10? 3 /uL 02/23/2023 6:33 AM [facility] RBC 4.00(L) 4.30 - 5.70 10? 6 /uL 02/23/2023 6:33 AM [facility] Hemoglobin 12.3 12.0 - 17.6 g/dL 02/23/2023 6:33 AM [facility] Hematocrit 38.0 35.2 - 51.7 % 02/23/2023 6:33 AM [facility] MCV 95.0 80.7 - 98.3 fL 02/23/2023 6:33 AM [facility] MCH 30.8 26.7 - 34.0 pg 02/23/2023 6:33 AM [facility] MCHC 32.4 30.8 - 35.9 g/dL 02/23/2023 6:33 AM [facility] RDW-SD 51.7(H) 36.0 - 50.0 fL 02/23/2023 6:33 AM [facility] RDW-CV 14.7 11.2 - 14.8 % 02/23/2023 6:33 AM [facility] Platelet Count 138(L) 150 - 400 10? 3 /uL 02/23/2023 6:33 AM [facility] MPV 02/23/2023 6:33 AM [facility] Comment:Unable to Report Immature Platelet Fraction 12.6(H) 1.1 - 6.2 % 02/23/2023 6:33 AM [facility] nRBC Absolute 0.00 0 10? 3 /uL 02/23/2023 6:33 AM [facility] nRBC Auto 0.0 0 /100 WBC 02/23/2023 6:33 AM [facility] Neutrophils % 46.7 35.0 - 70.0 % 02/23/2023 6:33 AM [facility] Lymphocytes % 38.8 20.0 - 43.0 % 02/23/2023 6:33 AM [facility] Monocytes % 5.7 5.0 - 13.0 % 02/23/2023 6:33 AM [facility] Eosinophils % 8.2(H) 0.0 - 6.0 % 02/23/2023 6:33 AM [facility] Basophil % 0.3 0.0 - 2.0 % 02/23/2023 6:33 AM [facility] Neutrophils Absolute 2.85 1.60 - 7.00 10? 3 /uL 02/23/2023 6:33 AM [facility] Lymphocyte Absolute 2.37 1.10 - 3.90 10? 3 /uL 02/23/2023 6:33 AM [facility] Monocytes Absolute 0.35 0.26 - 1.07 10? 3 /uL 02/23/2023 6:33 AM [facility] Eosinophils Absolute 0.50(H) 0.00 - 0.47 10? 3 /uL 02/23/2023 6:33 AM [facility] Basophils Absolute 0.02 0.00 - 0.08 10? 3 /uL 02/23/2023 6:33 AM [facility] Immature Granulocytes % 0.3 0.0 - 1.0 % 02/23/2023 6:33 AM [facility] Immature Granulocytes Absolute 0.02 02/23/2023 6:33 AM [facility] Blood BLOOD SPECIMEN / Unknown Venipuncture / Unknown 02/23/2023 5:35 AM CDT 02/23/2023 5:40 AM T Kortney Vega MD LAB - HEMATOLOGY ORD ERABLES [facility] [address] [place] [address], [facility] [phone] * (ABNORMAL) COMPREHENSIVE METABOLIC PANEL (02/23/2023 5:35 AM [facility]) BUN 12 7 - 26 mg/dL 02/23/2023 6:05 AM [facility] Creatinine 0.54(L) 0.71 - 1.16 mg/dL 02/23/2023 6:05 AM [facility] Sodium 137 136 - 145 mmol/L 02/23/2023 6:05 AM [facility] Potassium 4.4 3.5 - 4.5 mmol/L 02/23/2023 6:05 AM [facility] Chloride 103 98 - 107 mmol/L 02/23/2023 6:05 AM [facility] CO2 28 22 - 29 mmol/L 02/23/2023 6:05 AM [facility] Glucose 82 70 - 115 mg/dL 02/23/2023 6:05 AM [facility] Calcium 10.1 8.4 - 10.2 mg/dL 02/23/2023 6:05 AM [facility] Protein Total 7.6 6.0 - 8.3 g/dL 02/23/2023 6:05 AM [facility] Albumin 2.7(L) 3.4 - 5.0 g/dL 02/23/2023 6:05 AM [facility] Bilirubin Total 0.2 0.2 - 1.2 mg/dL 02/23/2023 6:05 AM [facility] Alkaline Phosphatase 90 40 - 150 U/L 02/23/2023 6:05 AM [facility] ALT 7 5 - 55 U/L 02/23/2023 6:05 AM [facility] AST 17 5 - 34 U/L 02/23/2023 6:05 AM [facility] Anion Gap 6 6 - 16 02/23/2023 6:05 AM [facility] BUN/Creatinine Ratio 22 7 - 23 02/23/2023 6:05 AM [facility] Osmolality Calculated 283 275 - 295 mOsm/kg 02/23/2023 6:05 AM [facility] Albumin/Globulin Ratio 0.6(L) 1.1 - 2.3 02/23/2023 6:05 AM CDT [facility] eGFR by CKD-EPI >90 >=90 mL/min/1.7 3 m2 02/23/2023 6:05 AM CDT [facility] Blood BLOOD SPECIMEN / Unknown Venipuncture / Unknown 02/23/2023 5:35 AM CDT 02/23/2023 5:40 AM CDT Kortney Vega MD LAB - CHEMISTRY [facility] [address] [place] [address], [facility] [phone] * XR ABD OBSTR SERIES W CHEST 1VW (02/23/2023 4:13 AM CDT) Anatomical Region Laterality Modality Abdomen Radiographic Cynthia ging 02/23/2023 4:23 AM CDT Impressions 02/23/2023 [...] verification. Report dictated by Ashu Welch M.D. (certified prosthetist vice president) 02/23/2023 4:31 AM IRachel MD have personally reviewed and interpreted this examination/study. > Interpreting Provider: Rachel Phillips MD on 02/23/2023 9:26 AM Narrative 02/23/2023 9:26 AM CDT PROCEDURE: ??XR ABD OBSTR SERIES W CHEST 1VW, DATE/TIME OF EXAM: ??02/23/2023 4:13 AM, LOCATION ??[facility] INDICATION: K94.23: PEG tube malfunction (CMS/HCC) ADDITIONAL [...] 1VW, DATE/TIME OF EXAM:02/23/2023 4:13 AM, LOCATION [facility] INDICATION: K94.23: PEG tube malfunction (CMS/HCC) ADDITIONAL [...] verification. Report dictated by Ashu Welch M.D. (certified prosthetist vice president) 02/23/2023 4:31 AM I, Rachel Phillips MD have personally reviewed and interpreted this examination/study. > Interpreting Provider: Rachel Phillips MD on 02/23/2023 9:26 AM Kortney Vega MD DIAGNOSTIC IMAGING O RDERABLES documented in this encounter Visit Diagnoses Diagnosis Protein-calorie malnutrition, unspecified severity (HCC)- Primary PEG tube malfunction (HCC) Mechanical complication of gastrostomy Peritoneal free air Other specified disorder of peritoneum Nausea without vomiting Aspiration into airway, subsequent encounter Delayed gastric emptying Dyspepsia and other specified disorders of function of stomach Aspiration into airway, sequela Dysphagia, oropharyngeal phase HAP (hospital-acquired pneumonia) Pneumonia, organism unspecified Acute encephalopathy Encephalopathy, unspecified PEG tube malfunction (HCC) Mechanical complication of gastrostomy Aspiration into airway, subsequent encounter History of CVA (cerebrovascular accident) Transient ischemic attack (TIA), and cerebral infarction without residual deficits Essential (primary) hypertension Unspecified essential hypertension Seizure disorder (HCC) Unspecified epilepsy without mention of intractable epilepsy Chronic respiratory failure with hypoxia (HCC) Chronic respiratory failure Dementia, vascular (HCC) Vascular dementia, uncomplicated Tracheostomy in place (HCC) Tracheostomy status documented in this encounter Administered Medications Inactive Administered Medications - up to 3 most recent administrations Medication Order MAR Action Action Date Dose Rate Site 0.9% NaCl injection 1-10 mL 1-10 mL, Intracatheter, PRN, Other, peripheral line flush, Starting on Tue02/23/23 at 0324, Until Tue02/28/23 at 1926, Flush peripheral IV catheter with 1-10 mL of normal saline before and after medications and prn to clear blood from the line or to verify patency. 0.9% NaCl injection 3 mL 3 mL, Intracatheter, EVERY 8 HOURS, First dose on Tue02/23/23 at 0600, Until Discontinued, Flush peripheral IV catheter with 3 mL of normal saline every 8 hours. $ Given 02/28/2023 1:28 PM CDT 3 mL $ Given 02/28/2023 5:04 AM CDT 3 mL $ Given 02/27/2023 8:13 PM CDT 3 mL artificial tears ophthalmic ointment Each Eye, EVERY 8 HOURS, First dose on Tue02/23/23 at 0915, Until Discontinued $ Given 02/28/2023 1:28 PM CDT $ Given 02/28/2023 5:04 AM CDT $ Given 02/27/2023 8:13 PM CDT aspirin chew tablet 81 mg 81 mg, Enteral Tube, DAILY, First dose on 02/26/23 at 0900, Until Discontinued $ Given 02/28/2023 8:54 AM CDT 81 mg G Tub e $ Given 02/27/2023 9:14 AM CDT 81 mg G Tube $ Given 02/26/2023 9:07 AM CDT 81 mg G Tube atorvastatin (Lipitor) tablet 40 mg 40 mg, Enteral Tube, AT BEDTIME, First dose on 02/26/23 at 2100, Until Discontinued $ Given 02/27/2023 8:12 PM CDT 40 mg G Tub e $ Given 02/26/2023 9:10 PM CDT 40 mg G Tube bisacodyl (Dulcolax) suppository 10 mg 10 mg, Rectal, ONCE, 1 dose, On Tue02/23/23 at 0930 $ Given 02/23/2023 10:56 AM CDT 10 mg calcium carbonate (500 mg elemental Ca/5 mL) suspension 500 mg, Enteral Tube, EVERY 6 HOURS PRN, Heartburn, GI Upset, Starting on Tue02/28/23 at 0249, Until Tue02/28/23 at 1926, Shake well before using. $ Given 02/28/2023 3:09 AM CDT 500 mg G Tube cefepime (Maxipime) 2,000 mg in 0.9% NaCl IV 50 mL IVPB 2,000 mg (2 g), at 100 mL/hr, Intravenous, EVERY 8 HOURS, First dose on 02/26/23 at 1645, Until Discontinued, Indication for anti-infective therapy: Suspected infection, Site of anti-infective therapy: Lower Respiratory $ New Bag/Syringe 02/27/2023 9:28 AM CDT 2,000 mg 100 mL/hr $ New Bag/Syringe 02/27/2023 12:38 AM CDT 2,000 mg 100 m L/hr $ New Bag/Syringe 02/26/2023 5:46 PM CDT 2,000 mg 100 mL /hr cefTRIAXone (Rocephin) 2,000 mg in 0.9% NaCl IV 50 mL IVPB 2,000 mg (2 g), at 100 mL/hr, Intravenous, EVERY 24 HOURS, First dose on Tue02/23/23 at 0715, Until Discontinued, Ceftriaxone can cause precipitation when administered with calcium-containing fluids, including LR. Flush lines with a compatible fluid, such as D5W or NS before and after ceftriaxone dose. Admin through separate lumens is acceptable. , Indication for anti-infective therapy: Suspected infection, Site of anti-infective therapy: Lower Respiratory $ New Bag/Syringe 02/23/2023 8:41 AM CDT 2,000 mg 100 mL/hr cloBAZam (Onfi) tablet 15 mg 15 mg, Enteral Tube, EVERY MORNING, First dose on 02/26/23 at 0845, Until Discontinued $ Given 02/28/2023 5:05 AM CDT 15 mg G Tube $ Given 02/27/2023 6:21 AM CDT 15 mg G Tube $ Given 02/26/2023 10:42 AM CDT 15 mg G Tube cloBAZam (Onfi) tablet 20 mg 20 mg, Enteral Tube, EVERY EVENING, First dose on 02/26/23 at 1700, Until Discontinued $ Given 02/27/2023 4:36 PM CDT 20 mg G Tube $ Given 02/26/2023 5:43 PM CDT 20 mg G Tube clonazePAM (disintegrating) (KlonoPIN Wafer) tablet 1 mg 1 mg, Sublingual, 2 TIMES DAILY, First dose on Tue02/23/23 at 1330, Until Discontinued $ Given 02/25/2023 8:36 PM CDT 1 mg $ Given 02/25/2023 10:43 AM CDT 1 mg $ Given 02/24/2023 9:59 PM CDT 1 mg dextrose 5 % and 0.45 % NaCl with KCl 20 mEq infusion at 75 mL/hr, Intravenous, CONTINUOUS, Starting on Tue02/23/23 at 0400, Until Tue02/23/23 at 0901 $ New Bag/Syringe 02/23/2023 5:44 AM CDT 75 mL/hr dextrose 5 % and lactated ringers infusion at 75 mL/hr, Intravenous, CONTINUOUS, Starting on Tue02/23/23 at 0945, Until Tue02/25/23 at 2012 $ New Bag/Syringe 02/25/2023 10:42 AM CDT 75 mL/hr $ New Bag/Syringe 02/24/2023 10:59 PM CDT 75 mL /hr $ New Bag/Syringe 02/24/2023 1:13 PM CDT 75 mL/ hr enoxaparin (Lovenox) injection 40 mg 40 mg, Subcutaneous, DAILY, First dose on Tue02/23/23 at 0915, Until Discontinued, (for prefilled syringes) do not expel air bubble from the syringe prior to the injection Remind Patient to not rub injection site. Could cause hematoma. $ Given 02/23/2023 8:42 AM CDT 40 mg Abdominal Tissue enoxaparin (Lovenox) injection 40 mg 40 mg, Subcutaneous, DAILY, First dose on Tue02/25/23 at 1930, Until Discontinued, (for prefilled syringes) do not expel air bubble from the syringe prior to the injection Remind Patient to not rub injection site. Could cause hematoma. $ Given 02/28/2023 8:54 AM CDT 40 mg Abd Right Lower Quad rant $ Given 02/27/2023 9:15 AM CDT 40 mg Ab d Left Lower Quadrant $ Given 02/26/2023 9:07 AM CDT 40 mg Ab d Left Lower Quadrant famotidine (Pepcid) tablet 20 mg 20 mg, Enteral Tube, 2 TIMES DAILY, First dose on Tue02/28/23 at 0300, Until Discontinued $ Given 02/28/2023 8:54 AM CDT 20 mg G Tube $ Given 02/28/2023 3:09 AM CDT 20 mg G Tube folic acid (Folvite) tablet 1 mg 1 mg, Enteral Tube, DAILY, First dose on 02/26/23 at 0900, Until Discontinued $ Given 02/28/2023 8:54 AM CDT 1 mg G Tube $ Given 02/27/2023 9:14 AM CDT 1 mg G Tube $ Given 02/26/2023 9:08 AM CDT 1 mg G Tube guaiFENesin (Robitussin) solution 15 mL 15 mL, Enteral Tube, EVERY 6 HOURS (03,09,15,21), First dose on 02/26/23 at 2100, Until Discontinued $ Given 02/28/2023 1:27 PM CDT 15 mL G Tube $ Given 02/28/2023 8:54 AM CDT 15 mL G Tube $ Given 02/28/2023 2:40 AM CDT 15 mL G Tube iopamidol (Isovue 300) 61 % contrast ONCE PRN, Starting on Tue02/25/23 at 1625, Until Tue02/25/23 at 1625, Intra-op $ Given 02/25/2023 4:25 PM CDT 30 mL lacosamide (Vimpat) injection 200 mg 200 mg, Intravenous, 2 TIMES DAILY, First dose on Tue02/23/23 at 1000, Until Discontinued, Doses up to 400 mg may be administered undiluted at less than 80 mg/min (400 mg over 5 min) $ Given 02/25/2023 8:35 PM CDT 200 mg $ Given 02/25/2023 10:44 AM CDT 200 mg $ Given 02/24/2023 10:52 PM CDT 200 mg lacosamide (Vimpat) tablet 200 mg 200 mg, Enteral Tube, 2 TIMES DAILY, First dose on Tue02/26/23 at 0900, Until Discontinued $ Given 02/28/2023 8:54 AM CDT 200 mg G Tube $ Given 02/27/2023 8:12 PM CDT 200 mg G Tube $ Given 02/27/2023 9:14 AM CDT 200 mg G Tube levETIRAcetam (Keppra) 2,000 mg in 0.9% NaCl IV 270 mL IVPB 2,000 mg, at 540 mL/hr, Intravenous, EVERY 12 HOURS, First dose on Tue02/23/23 at 1000, Until Discontinued $ New Bag/Syringe 02/26/2023 12:39 AM CDT 2,000 mg 540 mL/hr $ New Bag/Syringe 02/25/2023 12:50 PM CDT 2,000 mg 540 m L/hr $ New Bag/Syringe 02/24/2023 10:13 PM CDT 2,000 mg 540 m L/hr levETIRAcetam (Keppra) tablet 2,000 mg 2,000 mg, Enteral Tube, 2 TIMES DAILY, First dose on Tue02/26/23 at 0900, Until Discontinued, Do not crush or chew because of TASTE only. $ Given 02/28/2023 8:54 AM CDT 2,000 m g G Tube $ Given 02/27/2023 8:12 PM CDT 2,000 mg G Tube $ Given 02/27/2023 9:14 AM CDT 2,000 mg G Tube lidocaine (Urojet) 2 % jelly Urethral, ONCE PRN, Starting on Tue02/25/23 at 1617, Until Tue02/25/23 at 1617, Intra-op $ Given 02/25/2023 4:17 PM CDT 10 mL magnesium sulfate 2 g in 50 mL bolus 2 g, at 25 mL/hr, Administer over 120 Minutes, Intravenous, ONCE, 1 dose, On Tue02/25/23 at 1545, Infuse at 1 gm/hr $ New Bag/Syringe 02/25/2023 6:07 PM CDT 2 g 25 mL/hr magnesium sulfate 2 g in 50 mL bolus 2 g, at 25 mL/hr, Administer over 120 Minutes, Intravenous, ONCE, 1 dose, On Tue02/27/23 at 0745, Infuse at 1 gm/hr $ New Bag/Syringe 02/27/2023 9:37 AM CDT 2 g 25 mL/hr magnesium sulfate 2 g in 50 mL bolus 2 g, at 25 mL/hr, Administer over 120 Minutes, Intravenous, ONCE, 1 dose, On Tue02/28/23 at 0830, Infuse at 1 gm/hr $ New Bag/Syringe 02/28/2023 8:58 AM CDT 2 g 25 mL/hr metoprolol tartrate IR (Lopressor) tablet 25 mg 25 mg, Enteral Tube, 2 TIMES DAILY, First dose on 02/26/23 at 0900, Until Discontinued $ Given 02/28/2023 8:54 AM CDT 25 mg G Tube $ Given 02/27/2023 8:12 PM CDT 25 mg G Tube $ Given 02/27/2023 9:14 AM CDT 25 mg G Tube metroNIDAZOLE (Flagyl) 500 mg in 100 mL IVPB 500 mg, at 200 mL/hr, Intravenous, EVERY 8 HOURS, First dose on Tue02/23/23 at 0715, Until Discontinued, Controlled Room Temperature, Indication for anti-infective therapy: Suspected infection, Site of anti-infective therapy: Lower Respiratory $ New Bag/Syringe 02/23/2023 9:29 AM CDT 500 mg 200 mL/hr metroNIDAZOLE (Flagyl) tablet 500 mg 500 mg, Enteral Tube, EVERY 8 HOURS, First dose (after last modification) on 02/26/23 at 2200, Until Discontinued, May take with food or milk., Indication for anti-infective therapy: Suspected infection, Site of anti-infective therapy: Lower Respiratory $ Given 02/27/2023 2:07 PM CDT 500 mg G Tube $ Given 02/27/2023 6:21 AM CDT 500 mg G Tube $ Given 02/26/2023 9:10 PM CDT 500 mg G Tube ondansetron (Zofran) injection 4 mg 4 mg, Intravenous, NOW, 1 dose, On Tue02/23/23 at 0345, Administer over 2 to 5 minutes. $ Given 02/23/2023 5:42 AM CDT 4 mg polyethylene glycol 3350 (Miralax) packet 17 g 17 g, Enteral Tube, 2 TIMES DAILY, First dose on 02/27/23 at 0900, Until Discontinued, Mix in 8 ounces of water, juice, soda, coffee or tea prior to administration $ Given 02/28/2023 8:54 AM CDT 17 g G T ube $ Given 02/27/2023 8:11 PM CDT 17 g G Tube $ Given 02/27/2023 9:14 AM CDT 17 g G Tube senna (Senokot) tablet 8.6 mg 8.6 mg, Enteral Tube, DAILY, First dose on 02/27/23 at 0900, Until Discontinued $ Given 02/28/2023 8:54 AM CDT 8.6 mg G Tub e $ Given 02/27/2023 9:14 AM CDT 8.6 mg G Tube sodium - potassium phosphates (K Phos Neutral) tablet 1 tablet 1 tablet, Enteral Tube, 3 TIMES DAILY, 2 doses, First dose on 02/27/23 at 0900, Last dose on 02/27/23 at 1400, Contains Phos 8 mmol, K+ 1.1 mEq, Na 13 mEq per tablet $ Given 02/27/2023 2:06 PM CDT 1 tablet G Tub e $ Given 02/27/2023 9:14 AM CDT 1 tablet G Tube thiamine (Vitamin B-1) tablet 100 mg 100 mg, Enteral Tube, DAILY, First dose on Tue02/26/23 at 0900, Until Discontinued $ Given 02/28/2023 8:54 AM CDT 100 mg G Tub e $ Given 02/27/2023 9:14 AM CDT 100 mg G Tube $ Given 02/26/2023 9:07 AM CDT 100 mg G Tube valproate (Depacon) 500 mg in 0.9% NaCl IV 55 mL IVPB 500 mg, at 55 mL/hr, Intravenous, EVERY 6 HOURS, 10 doses, First dose on Tue02/23/23 at 1000, Last dose on Tue02/25/23 at 2200 $ New Bag/Syringe 02/25/2023 10:56 AM CDT 500 mg 55 mL/hr $ New Bag/Syringe 02/25/2023 5:08 AM CDT 500 mg 55 mL/ hr $ New Bag/Syringe 02/24/2023 10:47 PM CDT 500 mg 55 mL /hr valproate (Depacon) 500 mg in 0.9% NaCl IV 55 mL IVPB 500 mg, at 55 mL/hr, Intravenous, EVERY 6 HOURS, First dose (after last modification) on Tue02/25/23 at 1600, Until Discontinued $ New Bag/Syringe 02/26/2023 4:41 AM CDT 500 mg 55 mL/hr $ New Bag/Syringe 02/25/2023 8:43 PM CDT 500 mg 55 mL/ hr valproic acid (Depakene) solution 500 mg 500 mg, Enteral Tube, 4 TIMES DAILY, First dose on Tue02/26/23 at 0900, Until Discontinued $ Given 02/28/2023 1:27 PM CDT 500 mg G Tube $ Given 02/28/2023 9:05 AM CDT 500 mg G Tube $ Given 02/27/2023 8:15 PM CDT 500 mg G Tube documented in this encounter Active and Recently Administered Medications Times are shown in CDT. Scheduled Medication Order 02/26/2023 02/27/2023 02/28/2023 0.9% NaCl injection 3 mL(Linked Group 1) 3 mL, Intracatheter, EVERY 8 HOURS, First dose on Tue02/23/23 at 0600, Until Discontinued, Flush peripheral IV catheter with 3 mL of normal saline every 8 hours. 0441 ($ Given - Provider: Araceli Almanza RN)1417 ($ Given - Provider: Mariajose Odell RN)2109 ($ Given - Provider: Araceli Almanza RN) 0620 ($ Given - Provider: Araceli Almanza RN)1407 ($ Given - Provider: Michaela Garcia RN)2012 ($ Given - Provider: Mara Jolly RN) 0504 ($ Given - Provider: Mara Jolly RN)1328 ($ Given - Provider: Adrianne Marie RN) artificial tears ophthalmic ointment Each Eye, EVERY 8 HOURS, First dose on Tue02/23/23 at 0915, Until Discontinued 0441 ($ Given - Provider: Araceli Almanza RN)1417 ($ Given - Provider: Mariajose Odell RN)210 ($ Given - Provider: Araceli Almanza RN) 0620 ($ Given - Provider: Araceli Almanza RN)1407 ($ Given - Provider: Michaela Garcia RN)2012 ($ Given - Provider: Mara Jolly RN) 0504 ($ Given - Provider: Mara Jolly RN)1328 ($ Given - Provider: Adrianne Marie RN) aspirin chew tablet 81 mg 81 mg, Enteral Tube, DAILY, First dose on Tue02/26/23 at 0900, Until Discontinued 0907 ($ Given - Provider: Mariajose Odell RN) 0914 ($ Given - Provider: Michaela Garcia, ALFRED) 0854 ($ Given - Provider: Adrianne Marie RN) atorvastatin (Lipitor) tablet 40 mg 40 mg, Enteral Tube, AT BEDTIME, First dose on Tue02/26/23 at 2100, Until Discontinued 2109 ($ Given - Provider: Araceli Almanza RN) 2011 ($ Given - Provider: Mara Jolly RN) cefepime (Maxipime) 2,000 mg in 0.9% NaCl IV 50 mL IVPB (CANCELED) 2,000 mg (2 g), at 100 mL/hr, Intravenous, EVERY 8 HOURS, First dose on Tue02/26/23 at 1645, Until Discontinued, Indication for anti-infective therapy: Suspected infection, Site of anti-infective therapy: Lower Respiratory 1746 ($ New Bag/Syringe - Provider: Mariajose Odell RN)1815 (Stopped - Provider: Mariajose Odell RN) 0038 ($ New Bag/Syringe - Provider: Araceli Almanza RN)0107 (Stopped - Provider: Araceli Almanza RN)0928 ($ New Bag/Syringe - Provider: Michaela Garcia, RN)1004 (Stopped - Provider: Michaela Garcia RN) cloBAZam (Onfi) tablet 15 mg 15 mg, Enteral Tube, EVERY MORNING, First dose on 02/26/23 at 0845, Until Discontinued 1042 ($ Given - Provider: Mariajose Odell RN) 0621 ($ Given - Provider: Araceli Almanza RN) 0505 ($ Given - Provider: Mara Jolly, ALFRED) cloBAZam (Onfi) tablet 20 mg 20 mg, Enteral Tube, EVERY EVENING, First dose on 02/26/23 at 1700, Until Discontinued 1743 ($ Given - Provider: Mariajose Odell RN) 1636 ($ Given - Provider: Michaela Garcia RN) 1700 (Due) enoxaparin (Lovenox) injection 40 mg 40 mg, Subcutaneous, DAILY, First dose on Tue02/25/23 at 1930, Until Discontinued, (for prefilled syringes) do not expel air bubble from the syringe prior to the injection Remind Patient to not rub injection site. Could cause hematoma. 0907 ($ Given - Provider: Mariajose Odell RN) 0915 ($ Given - Provider: Michaela Garcia RN) 0854 ($ Given - Provider: Adrianne Marie RN) famotidine (Pepcid) tablet 20 mg 20 mg, Enteral Tube, 2 TIMES DAILY, First dose on Tue02/28/23 at 0300, Until Discontinued 0309 ($ Given - Provider: Mara Jolly, ALFRED)0854 ($ Given - Provider: Adrianne Marie RN) folic acid (Folvite) tablet 1 mg 1 mg, Enteral Tube, DAILY, First dose on 02/26/23 at 0900, Until Discontinued 0908 ($ Given - Provider: Mariajose Odell RN) 0914 ($ Given - Provider: Michaela Garcia RN) 0854 ($ Given - Provider: Adrianne Marie RN) guaiFENesin (Robitussin) solution 15 mL 15 mL, Enteral Tube, EVERY 6 HOURS (03,09,15,21), First dose on Tue02/26/23 at 2100, Until Discontinued 2108 ($ Given - Provider: Araceli Almanza RN) 0324 ($ Given - Provider: Araceli Almanza RN)0914 ($ Given - Provider: Michaela Garcia RN)1406 ($ Given - Provider: Michaela Garcia RN)2010 ($ Given - Provider: Mara Jolly, ALFRED) 0240 ($ Given - Provider: Mara Jolly, RN)0854 ($ Given - Provider: Adrianne Marie RN)1327 ($ Given - Provider: Adrianne Marie, ALFRED) lacosamide (Vimpat) tablet 200 mg 200 mg, Enteral Tube, 2 TIMES DAILY, First dose on Tue02/26/23 at 0900, Until Discontinued 09 ($ Given - Provider: Mariajose Odell RN)2108 ($ Given - Provider: Araceli Almanza RN) 09 ($ Given - Provider: Michaela Garcia RN)2011 ($ Given - Provider: Mara Jolly, ALFRED) 0854 ($ Given - Provider: Adrianne Marie RN) levETIRAcetam (Keppra) 2,000 mg in 0.9% NaCl IV 270 mL IVPB (CANCELED) 2,000 mg, at 540 mL/hr, Intravenous, EVERY 12 HOURS, First dose on Tue02/23/23 at 1000, Until Discontinued 0039 ($ New Bag/Syringe - Provider: Araceli Almanza RN)0113 (Stopped - Provider: Araceli Almanza RN) levETIRAcetam (Keppra) tablet 2,000 mg 2,000 mg, Enteral Tube, 2 TIMES DAILY, First dose on Tue02/26/23 at 0900, Until Discontinued, Do not crush or chew because of TASTE only. 0907 ($ Given - Provider: Mariajose Odell RN)211 ($ Given - Provider: Araceli Almanza RN) 0914 ($ Given - Provider: Michaela Garcia RN)2011 ($ Given - Provider: Mara Jolly, RN) 0854 ($ Given - Provider: Adrianne Marie, ALFRED) magnesium sulfate 2 g in 50 mL bolus (COMPLETED) 2 g, at 25 mL/hr, Administer over 120 Minutes, Intravenous, ONCE, 1 dose, On 02/27/23 at 0745, Infuse at 1 gm/hr 0937 ($ New Bag/Syringe - Provider: Michaela Garcia RN)1156 (Stopped - Provider: Michaela Garcia RN) magnesium sulfate 2 g in 50 mL bolus (COMPLETED) 2 g, at 25 mL/hr, Administer over 120 Minutes, Intravenous, ONCE, 1 dose, On Tue02/28/23 at 0830, Infuse at 1 gm/hr 0858 ($ New Bag/Syringe - Provider: Adrianne Marie RN)1119 (Stopped - Provider: Adrianne Marie RN) metoprolol tartrate IR (Lopressor) tablet 25 mg 25 mg, Enteral Tube, 2 TIMES DAILY, First dose on 02/26/23 at 0900, Until Discontinued 0907 ($ Given - Provider: Mariajose Odell RN)211 ($ Given - Provider: Araceli Almanza RN) 0914 ($ Given - Provider: Michaela Garcia RN)2011 ($ Given - Provider: Mara Jolly, ALFRED) 0854 ($ Given - Provider: Adrianne Marie RN) metroNIDAZOLE (Flagyl) tablet 500 mg (CANCELED) 500 mg, Enteral Tube, EVERY 8 HOURS, First dose (after last modification) on 02/26/23 at 2200, Until Discontinued, May take with food or milk., Indication for anti-infective therapy: Suspected infection, Site of anti-infective therapy: Lower Respiratory 2109 ($ Given - Provider: Araceli Almanza RN) 0621 ($ Given - Provider: Araceli Almanza RN)1407 ($ Given - Provider: Michaela Garcia RN) polyethylene glycol 3350 (Miralax) packet 17 g 17 g, Enteral Tube, 2 TIMES DAILY, First dose on 02/27/23 at 0900, Until Discontinued, Mix in 8 ounces of water, juice, soda, coffee or tea prior to administration 09 ($ Given - Provider: Michaela Garcia RN)2010 ($ Given - Provider: Mara Jolly RN) 0854 ($ Given - Provider: Adrianne Marie, ALFRED) senna (Senokot) tablet 8.6 mg 8.6 mg, Enteral Tube, DAILY, First dose on 02/27/23 at 0900, Until Discontinued 913 ($ Given - Provider: Michaela Garcia RN) 0854 ($ Given - Provider: Adrianne Marie RN) sodium - potassium phosphates (K Phos Neutral) tablet 1 tablet (COMPLETED) 1 tablet, Enteral Tube, 3 TIMES DAILY, 2 doses, First dose on 02/27/23 at 0900, Last dose on 02/27/23 at 1400, Contains Phos 8 mmol, K+ 1.1 mEq, Na 13 mEq per tablet 09 ($ Given - Provider: Michaela Garcia RN)1406 ($ Given - Provider: Michaela Garcia RN) thiamine (Vitamin B-1) tablet 100 mg 100 mg, Enteral Tube, DAILY, First dose on 02/26/23 at 0900, Until Discontinued 09 ($ Given - Provider: Mariajose Odell RN) 09 ($ Given - Provider: Michaela Garcia RN) 0854 ($ Given - Provider: Adrianne Marie RN) valproate (Depacon) 500 mg in 0.9% NaCl IV 55 mL IVPB (CANCELED) 500 mg, at 55 mL/hr, Intravenous, EVERY 6 HOURS, First dose (after last modification) on Tue02/25/23 at 1600, Until Discontinued 0441 ($ New Bag/Syringe - Provider: Araceli Almanza, ALFRED)0552 (Stopped - Provider: Araceli Almanza, ALFRED) valproic acid (Depakene) solution 500 mg 500 mg, Enteral Tube, 4 TIMES DAILY, First dose on 02/26/23 at 0900, Until Discontinued 1126 ($ Given - Provider: Mariajose Odell, ALFRED)1128 (Not Administered - Provider: Mariajose Odell RN - Reason: See Comments - Comment: too close to previous dose)1744 ($ Given - Provider: Mariajose Odell RN)2113 ($ Given - Provider: Araceli Almanza, ALFRED) 0928 ($ Given - Provider: Michaela Garcia, RN)1406 ($ Given - Provider: Michaela Garcia, RN)1636 ($ Given - Provider: Michaela Garcia, RN)2014 ($ Given - Provider: Mara Jolly, RN) 0905 ($ Given - Provider: Adrianne Marie, RN)1327 ($ Given - Provider: Adrianne Marie, RN)1700 (Due) PRN Medication Order 02/26/2023 02/27/2023 02/28/2023 0.9% NaCl injection 1-10 mL(Linked Group 1) 1-10 mL, Intracatheter, PRN, Other, peripheral line flush, Starting on Tue02/23/23 at 0324, Until Tue02/28/23 at 1926, Flush peripheral IV catheter with 1-10 mL of normal saline before and after medications and prn to clear blood from the line or to verify patency. calcium carbonate (500 mg elemental Ca/5 mL) suspension 500 mg, Enteral Tube, EVERY 6 HOURS PRN, Heartburn, GI Upset, Starting on Tue02/28/23 at 0249, Until Tue02/28/23 at 1926, Shake well before using. 0309 ($ Given - Prov ider: Mara Jolly, ALFRED) Linked Groups Order Group 1: SALINE LOCK, INSERT AND MAINTAIN (CANCELED) Routine, CONTINUOUS, Starting on Tue02/23/23 at 0330, Until Specified, New collection, Task Completed: Yes And 0.9% NaCl injection 3 mLJump to med 3 mL, Intracatheter, EVERY 8 HOURS, First dose on Tue02/23/23 at 0600, Until Discontinued, Flush peripheral IV catheter with 3 mL of normal saline every 8 hours. And 0.9% NaCl injection 1-10 mLJump to med 1-10 mL, Intracatheter, PRN, Other, peripheral line flush, Starting on Tue02/23/23 at 0324, Until Tue02/28/23 at 1926, Flush peripheral IV catheter with 1-10 mL of normal saline before and after medications and prn to clear blood from the line or to verify patency. 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
--- OUTSIDE RECORDS SUMMARY | 2024-06-08 05:30 | XMS_ITS | Encounter Summary ---
Author Organization [facility] Health Address [address] [facility] [place] [address] Care Team Providers Care Outsole Cementer Name Role Phone Elizabeth Sullivan RN Unavailable [phone] Joyce Luevano STEAMTABLE WORKER-MOSS BLEACHER Primary Care Provider [phone] Encounter Details Date Type Department Care Team (Late st Contact Info) Description 03/14/2023 Orders Only [facility] - Neurology [address] [place] [address] Yana Rm APRN-CNP [address] [place] [address] Social History Tobacco Use Types [...] and heating? Not hard at all 11/28/2022 [facility] [place] of Occupat ional Health - Occupational Stress [...] place to sleep or slept in a skilled nursing (including now)? 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
--- OUTSIDE RECORDS SUMMARY | 2024-06-08 05:30 | XMS_ITS | Encounter Summary ---
Author Organization [facility] Health Address [address] [place] [address] Care Team Providers Care Parish Visitor Name Role Phone Elizabeth Sullivan RN Unavailable [phone] Joyce Luevano SCIENCE CENTER DISPLAY BUILDER-FOREMAN SHIPPING DEPARTMENT Primary Care Provider [phone] Encounter Details Date Type Department Care Team (Latest Contact Info) Description 06/19/2023 Travel Social History Tobacco Use Types Packs/Day [...] hard at all 06/19/2023 [facility] [place] of Occupat ional Health - Occupational Stress [...] place to sleep or slept in a long term (including now)? No 06/19/2023 Sex and Gender [...] Office Visit [facility] - Neurology [address] [place] [address], [place] [address] Sean Raymundo, DO [address] [place] [address] [place] [address] documented as of this encounter Visit Diagnoses Not on filedocumented in this encounter Additional Health Concerns Infection Onset Date Last Indicated Resolved Time RESIST ACB 09/18/2022 11/28/2022 MDRO 09/18/2022 06/11/2023 MRSA 06/11/2023 06/11/2023 documented as of this encounter Care Teams Parish Visitor Relationship Specialty Start Date End Date Joyce Luevano, SCIENCE CENTER DISPLAY BUILDER-FOREMAN SHIPPING DEPARTMENT [address] [place] [address] PCP - General 03/08/22 11/17/23 Elizabeth Sullivan, RN Configuration Management Specialist 10/14/17 documented as of this encounter
--- OUTSIDE RECORDS SUMMARY | 2024-06-08 05:30 | XMS_ITS | Encounter Summary ---
Author Organization [facility] Health Address [address] [place] [address] Care Team Providers Care Recording Studio Set Up Worker Name Role Phone Elizabeth Sullivan RN Unavailable [phone] Joyce Luevano RN TRANSITIONAL CARE-INDUSTRIAL GAS FITTER Primary Care Provider [phone] Encounter Details Date Type Department Care Team (Late st Contact Info) Description 05/18/2023 Orders Only [facility] [address] [place] [address] Yana Rm APRN-CNP [address] [place] [address] Social History Tobacco Use Types [...] and heating? Not hard at all 11/28/2022 [facility] [place] of Occupat ional Health - Occupational Stress [...] [place] [facility] (including now)? 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
--- OUTSIDE RECORDS SUMMARY | 2024-06-08 05:30 | XMS_ITS | Encounter Summary ---
Author Organization [facility] Address [address] [facility] [place] [address] Care Team Providers Care Police Officer Name Role Phone Elizabeth Sullivan RN Unavailable [phone] Joyce Luevano APRN-EFFICIENCY MINER BLASTING Primary Care Provider [phone] Reason for Referral * Radiology Services (Routine) - Closed Specialty Diagnoses / Procedures Referred By Contac t Referred To Contact Interventional Radiology Diagnoses History of CVA (cerebrovascular accident) Procedures IR PERC GJ TUBE REPLACEMENT Eron Payton MD [address] [place] [address] Referral ID Status Reason Start Date Expiration Date Visits Re quested Visits Authorized [id number] Closed 02/22/2023 02/22/2024 1 1 Encounter Details Date Type Department Care Team (Late st Contact Info) Description 02/21/2023 Orders Only [facility] [address] [place] [phone] Mariah Hernandez RN History of CVA (cerebrovascular accident) Social History Tobacco Use Types Packs/Day Years [...] and heating? Not hard at all 11/28/2022 [facility] [place] of Occupat ional Health - Occupational Stress [...] Yes 01/01/2023 documented as of this encounter Progress Notes * Mariah Hernandez, RN - 02/21/2023 2:15 PM CDT Received call from access line, pt is in hospital at [facility] and needs feeding tube exchanged. Spoke with Dr. Allison, he states pt is ready for discharge to nursing facility but J port is clogged. Pt is able to use G port for feeds and medications. Pt is unresponsive and has history of aspiration. Pt scheduled for GJ tube exchange. Pt to discharge to custodial and come back as outpt for procedure per Dr. Allison. Pt's sister Adriane made aware of plan and is available by phone for consent [phone]. documented in this encounter Plan of Treatment Upcoming Encounters Date Type Department Care Team (Late st Contact Info) Description 12/05/2024 1:00 PM CDT Office Visit [facility] - Neurology [address] [place] [address], [place] [address] Sean Raymundo, DO [address] [place] [address] [place] [phone] Scheduled Orders Name Type Priority Associated Diagnoses Orde r Schedule IR PERC GJ TUBE REPLACEMENT Imaging Routine History of CVA (cerebrovascular accident) Expected: 02/22/2023, Expires: 02/22/2024 documented as of this encounter Visit Diagnoses Diagnosis History of CVA (cerebrovascular accident)- Primary Transient ischemic attack (TIA), and cerebral infarction without residual deficits documented in this encounter Additional Health Concerns Infection Onset Date Last Indicated Resolved Time 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
--- OUTSIDE RECORDS SUMMARY | 2024-06-08 05:30 | XMS_ITS | Encounter Summary ---
Author Organization [facility] Health Address [address] [place] [address] Care Team Providers Care Rug Setter [place]minster Name Role Phone Elizabeth Sullivan RN Unavailable [phone] Joyce Luevano TAKER AWAY-SENIOR PRODUCT CONSULTANT Primary Care Provider [phone] Encounter Details Date Type Department Care Team (Latest Contact Info) Description 02/21/2023 Travel Social History Tobacco Use Types Packs/Day Years Used Date Smoking Tobacco: Former Cigarettes 1 15 Smokeless Tobacco: Never Alcohol Use Standard Drinks/Week Comments No 0 (1 standard drink = 0.6 oz pur e alcohol) last drink 2015 AUDIT-C Answer Date Recorded Q1: How often do you have a drink containing alcohol? Never 01/01/2023 Q2: How many drinks containi ng alcohol do you have on a typical day when you are drinking? Patient does not drink Q3: How often do you have si x or more drinks on one occasion? Never 01/01/2023 Overall Financial Resource Strain (CARDIA) Answe r Date Recorded How hard is it for you to pa y for the very basics like food, housing, medical care, and heating? Not hard at all 11/28/2022 [facility] [place] of Occupat ional Health - Occupational Stress [...] slept in a assisted (including now)? 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
--- OUTSIDE RECORDS SUMMARY | 2024-06-08 05:31 | XMS_ITS | Encounter Summary ---
Author Organization [facility] Health Address [address] [facility] [place] [address] Care Team Providers Care Environmental Consultant Name Role Phone Elizabeth Sullivan RN Unavailable [phone] Joyce Luevano DRAMATIC ART TEACHER-TREE TRIMMER Primary Care Provider [phone] Encounter Details Date Type Department Care Team (Late st Contact Info) Description 02/17/2023 Orders Only [facility] [address] [place] [address] Yana Rm APRN-CNP [address] [place] [address] Social History Tobacco Use Types [...] and heating? Not hard at all 11/28/2022 [facility] [place] of Occupat ional Health - Occupational Stress [...] place to sleep or slept in a nursing home (including now)? No 11/28/2022 Sex and Gender [...] this encounter Progress Notes * Berneking, Yana, DRAMATIC ART TEACHER-TREE TRIMMER - 02/17/2023 12:49 PM CDT POShiloh requesting for clobazam to be discontinued due to concern medication is reason for drooling andpersistent aspiration PNA. ?? Discussed all seizure medications are associated with increased risk of aspiration pneuomnia (thought to be due to their sedative properties). Uncontrolled seizures are also associated with increasedrisk of aspiration pneumonia. Due to patient's brittle epilepsy did not recommend discontinuation of medication without transitioning to another medication. Discussed clorazepate as a option, declined due to medication side effect concerns. Called and spoke to SHARI Forrest, discussed plan to try to very slowly cut back on clobazam. Confirmedunderstanding this may lead to recurrence of seizures, dicussed and when his seizures recur this could lead to him requiring sedation and prolonged hospitalization. Prolonged seizures can lead to worsening of his condition or . Voiced understanding would like to start decreasing clobazam. Currently at 20mg BID, will decrease to 15mg AM and 20mg PM. ?? ELANA Cullen documented in this encounter Plan of Treatment Upcoming Encounters Date Type Department Care Team (Late st Contact Info) Description 12/05/2024 1:00 PM CDT Office Visit [facility] - Neurology [address] [place] [address], [facility] [place] [phone] Sean Raymundo, DO [address] [place] [address] [place] [address] documented as of this encounter Visit Diagnoses Not on filedocumented in this encounter Additional Health Concerns Infection Onset Date Last Indicated Resolved Time 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
--- OUTSIDE RECORDS SUMMARY | 2024-06-08 05:31 | XMS_ITS | Encounter Summary ---
Author Organization [facility] Health Address [address] [facility] [place] [address] Care Team Providers Care Field Operations Supervisor Name Role Phone Elizabeth Sullivan RN Unavailable Joyce Luevano SURVEY SUPERVISOR-MANAGER OFFICE Primary Care Provider [phone] Reason for Visit * Reason Onset Date Comments Seizure 12/31/2022 Encounter Details Date Type Department Care Team (Late st Contact Info) Description 12/31/2022 Telephone [facility] - [facility] Med [facility], [place] [address] Abdulaziz Hall III, MD [address] [place] [address] Seizure Social History Tobacco Use Types Packs/Day Years [...] and heating? Not hard at all 11/28/2022 [facility] [place] of Occupat ional Health - Occupational Stress [...] in a senior living (including now)? No 11/28/2022 Sex and Gender Information Value Date Recorded Sex Assigned at Not on file Gender Identity Not on file Sexual Orientation Not on file documented as of this encounter Functional Status Functional Status Response Date of Assess ment Is person deaf or have serious hearing difficult y? Yes 11/28/2022 Is person blind or have serious difficulty seein g? Yes 11/28/2022 Does person have serious dif ficulty walking/climbing stairs? Yes 11/28/2022 Does person have difficulty dressing/bathing? Ye s 11/28/2022 Does person have difficulty doing errands alone? Yes 11/28/2022 Cognitive Status Response Date of Assessm ent Does person have difficulty concentrating/remembering/making decisions? Yes 11/28/2022 documented as of this encounter Miscellaneous Notes * Telephone Encounter - Abdulaziz Hall III, MD - 12/31/2022 1:16 PM CDT 62 yo w/ pmhx of chronic resp failure w/ new hypoxia, dementia, CVA w/ left sided deficits, trach and GJ tube 12/14/22, zenker diverticulum s/p diverticulectomy 2022, s/p recent admission at [facility] with placement J-tube and treated for HAP, [facility] and then patient had a breakthrough seizure at [facility] resulting in ICU transfer. Patient in ICU so recommend call MICU fellow trade economist for transfer eval. 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
--- OUTSIDE RECORDS SUMMARY | 2024-06-08 05:31 | XMS_ITS | Encounter Summary ---
Author Organization [facility] Health Address [address] [facility] [address] Care Team Providers Care Handy Worker Name Role Phone Elizabeth Sullivan RN Unavailable [phone] Joyce Luevano ENGLISH DIVISION CHAIR-COMPUTATOR Primary Care Provider [phone] Encounter Details Date Type Department Care Team (Late st Contact Info) Description 02/16/2023 Orders Only [facility] [address] [place] [address] Yana Rm APRN-CNP [address] [place] [address] Social History Tobacco Use Types [...] and heating? Not hard at all 11/28/2022 [facility] [place] of Occupat ional Health - Occupational Stress [...] slept in a residential (including now)? No 11/28/2022 Sex and Gender [...] this encounter Progress Notes * Berneking, Yana, ENGLISH DIVISION CHAIR-COMPUTATOR - 02/16/2023 1:40 PM CDT POA requesting for clobazam to be discontinued due to concern medication is reason for drooling andpersistent aspiration PNA. Discussed all seizure medications are associated with increased risk of aspiration pneuomnia (thought to be due to their sedative properties). Uncontrolled seizures are also associated with increasedrisk of aspiration pneumonia. Due to patient's brittle epilepsy did not recommend discontinuation of medication without transitioning to another medication. Discussed discontinuing clobazam 20mg BID and starting clorazepate 37.5mg BID. 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
--- OUTSIDE RECORDS SUMMARY | 2024-06-08 05:31 | XMS_ITS | Encounter Summary ---
Author Organization [facility] Health Address [address] [facility] [place] [address] Care Team Providers Care Tactical Air Control Party Name Role Phone Elizabeth Sullivan RN Unavailable [phone] Joyce Luevano MANAGER INTERNET RETAILS SALES-DAIRY FARM SUPERVISOR Primary Care Provider [phone] Reason for Visit * Reason Onset Date Comments Update 12/28/2022 Encounter Details Date Type Department Care Team (Late st Contact Info) Description 12/28/2022 Telephone [facility] [place] [address] Yana Rm APRN-DAIRY FARM SUPERVISOR [address] [place] [address] Update Social History Tobacco Use Types Packs/Day Years Used Date Smoking Tobacco: Former Cigarettes 1 15 Smokeless Tobacco: Never Alcohol Use Standard Drinks/Week Comments No 0 (1 standard drink = 0.6 oz pur e alcohol) last drink 2015 AUDIT-C Answer Date Recorded Q1: How often do you have a drink containing alcohol? Never 11/28/2022 Q2: How many drinks containi ng alcohol do you have on a typical day when you are drinking? Patient does not drink Q3: How often do you have si x or more drinks on one occasion? Never 11/28/2022 Overall Financial Resource Strain (CARDIA) Answe r Date Recorded How hard is it for you to pa y for the very basics like food, housing, medical care, and heating? Not hard at all 11/28/2022 [facility] [place] of Occupat ional Health - Occupational Stress [...] place to sleep or slept in a detention (including now)? No 11/28/2022 Sex and Gender [...] encounter Miscellaneous Notes * Telephone Encounter - Evy Frost, RN - 12/28/2022 2:16 PM CDT Received message from SHARI hanna stating that patient is in [facility]. Returned call to sister - unable to reach/no answer. Sent [employer] message where she has been communicating previously. 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
--- OUTSIDE RECORDS SUMMARY | 2024-06-08 05:31 | XMS_ITS | Encounter Summary ---
Author Organization [facility] Address [address] [place] [address] Care Team Providers Care Cistern Room Working Supervisor Name Role Phone Elizabeth Sullivan RN Unavailable [phone] Joyce Luevano HYPERTRICHOLOGIST-TAPE RECORDING MACHINE OPERATOR Primary Care Provider [phone] Reason for Visit * Reason Onset Date Comments Medication Prior Auth Request 02/17/2023 Encounter Details Date Type Department Care Team (Late st Contact Info) Description 02/17/2023 Telephone [facility] - Neurology [facility] [place] [address] Yana Rm APRN-CNP [address] [place] [address] Medication Prior Auth Request Social History Tobacco Use Types Packs/Day Years [...] and heating? Not hard at all 11/28/2022 [facility] - Occupational Stress [...] slept in a penitentiary (including now)? No 11/28/2022 Sex and Gender [...] Notes * Telephone Encounter - Michaela Bass, RN - 02/17/2023 11:28 AM CDT PA for clorazepate 15mg tablet approved by Raf as below: 02/17/23-02/18/24 documented in this encounter Plan of Treatment Upcoming Encounters Date Type Department Care Team (Late st Contact Info) Description 12/05/2024 1:00 PM CDT Office Visit [facility] - Neurology [address] [place] [address], [place] [address] Sean Raymundo, [address] [place] [address] [phone] documented as of this encounter Visit Diagnoses Not on filedocumented in this encounter Additional Health Concerns Infection Onset Date Last Indicated Resolved Time 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
--- OUTSIDE RECORDS SUMMARY | 2024-06-08 05:31 | XMS_ITS | Encounter Summary ---
Author Organization [facility] Address [address] [address] Care Team Providers Care Radiation Physicist Name Role Phone Elizabeth Sullivan RN Unavailable [phone] Joyce Luevano [employer] Primary Care Provider [phone] Reason for Visit * Auth/Cert (Routine) Specialty Diagnoses / Procedures Referred By Contac t Referred To Contact Diagnoses status epilepticus chronic hypoxic respiratory failure Referral ID Status Reason Start Date Expiration Date Visits Re quested Visits Authorized [id number] 1 1 Encounter Details Date Type Department Care Team (Late st Contact Info) Description 12/31/2022 7:45 PM CDT - 01/14/2023 10:40 PM CDT Hospital Encounter [facility] 3S ICU [address] [place] [id number] Ck Small MD [address] [facility] 2L DIV OF PULMONARY/[place] [address] Blair Cagle MD [address] [facility] 2L DIV OF PULMONARY/[place] [address] Lisset Norris MD [address] [facility] 2L DIV OF PULMONARY/[place] [address] Neurology Discharge Disposition: Long-Term Acute Care Social History Tobacco Use Types [...] and heating? Not hard at all 11/28/2022 [facility] - Occupational Stress [...] Sign Reading Time Taken Comments Blood Pressure 153/98 01/14/2023 10:00 PM CDT Pulse 116 01/14/2023 10:30 PM CDT Temperature 36.3 ??C (97.4 ??F) 01/14/2023 8:00 PM CD T Respiratory Rate 33 01/14/2023 10:3 0 PM CDT Oxygen Saturation 100% 01/14/2023 10: 30 PM CDT Inhaled Oxygen Concentration 28% 10:00 PM CDT Weight 71.5 kg (157 lb 10.1 oz) 01/14/2023 4:00 AM CDT Height 177.8 cm (5' 10 ) 01/01/2023 3:34 AM CDT Body Mass Index 22.62 01/01/2023 3:34 AM CDT documented in this encounter Functional [...] as of this encounter Discharge Summaries * Sondra Hansen DO - 01/14/2023 6:09 PM CDT [facility] INTERNAL MEDICINE DISCHARGE SUMMARY PATIENT: Mojgan Tabor 62 year old male : 1960 ADMISSION INFORMATION ADMISSION DISCHARGE Date: 12/31/2022 Date: 01/14/2023 Admitting Physician Ck Small MD Discharge Physician: Dr. Norris Present on Admission: ??? Status epilepticus (CMS/HCC) ??? Chronic respiratory failure with hypoxia (CMS/HCC) ??? History of CVA (cerebrovascular accident) ??? PEG (percutaneous endoscopic gastrostomy) status (CMS/HCC) ??? Seizure disorder (CMS/HCC) ??? Dementia, vascular (CMS/HCC) ??? Hyperlipidemia ??? Tracheostomy in place (CMS/HCC) ??? Anemia of chronic disease ??? Acute encephalopathy Discharge Diagnoses: Status Epilepticus, Vascular Dementia, Tachycardia, Chronic Hypoxic Respiratory Failure, Aspiration Pneumonia, GJ tube dependence, Anemia of chronic disease Admission Condition: poor Discharged Condition: stable HOSPITAL COURSE Hospital Course: Mojgan Tabor??is 62 year old??male??with history of epilepsy, chronic hypoxic respiratory failure (w/?trach), ??H/o multiple CVA's w/ residual deficits,??PEG dependent,??HTN, vascular dementia, alcohol use??disorder.??admitted on 12/31/2022??from OSH for continued seizures and concern for status epilepticus. ?? Initially admitted at [facility] on 12/18/22 for hypoxia and tachycardia. Found to have a RLLpneumonia. Sputum cultures were significant for Pseudomonas and Actinobacter resistant to multiple antibiotics. He completed a course of cefepime (EOT 12/25) and Bactrim (EOT 12/30) with improvement in leukocytosis and clinical symptoms. OSH initially planned to discharge on 12/28 however patient began having worsening seizures that were recurrent in nature. Home Clobazam was not on formulary at OSH. Neurology was consulted for concern of status epilepticus. Remainder of home Keppra 200mg BID, Valproate 750mg BID, and Lacosamide 200mg BID were continued. On 12/30 Neurology increased his Valproate to 750mg QID as patient continued to have recurrent seizures. He was transferred for higher level of care and continuous EEG given concern for subclinical seizures. ?? On presentation patient is unable to communicate??given propofol drip. Per family he is normally A&Ox4. He??has not had a seizure since last year until this previous admission per family.??On admission VSS; satting well w/ FiO2 30%, PEEP 5. Trach and GJ tube in place; placement confirmed with radiology. Outside paredes exchanged. Initial ABG w/ pH 7.50, CO2 33, and O2 175. Repeat ABG following adjustment improved. w/ pH 7.44. Labs w/ K 4.8, Mg. 1.9, Phos 3.1, Lactate 1.6, WBC 6.8, Hg 10.3. Trops negative. CXR unremarkable; trach in proper position. KUB w/ well positioned GJ tube. ?? In the MICU, neurology was consulted. Patient started on Propofol drip, hooked up to cEEG and restarted his home AEDs. EEG showed initially seizure like activity that with restarting of his meds, brain waves improved, significantly. Trach collar trial was performed 01/10. Pt tolerated the trial well. Patient was tachycardiac to 128 overnight on 01/11 and required a lot of suction due to copious amounts of secretion along with not clearing them very well. INTERIOR DESIGN CONSULTANT was consulted for eval, which revealedpatient was able to briefly tolerate finger occlusion of the trach but due to copious amounts of mucus and secretions along with being lethargic, a PMV was not placed. ?? Note to PCP (e.g. vitals, labs, imaging, medication start/stop, etc. to follow): Patient's home atorvastatin was restarted and patient's plavix was held- patient's last refill of plavix was dispensed in November and unclear indication for being on plavix Significant Diagnostic Studies: Labs this admission: CBC: Recent Labs Lab 01/14/2342301/13/2343101/12/23 0350 WBC 6.8 7.6 9.5 HGB 11.0* 11.0* 11.8* HCT 34.4* 34.5* 36.7 MCV 96.1 97.2 97.1 PLTCOUNT 186 186 220 BMP: Recent Labs Lab 01/14/2342301/13/23 0432 01/12/23 0350 NA 140 139 141 POTASSIUM 3.8 3.6 3.6 CL 107 106 108* BUN 12 15 13 CREATININE 0.37* 0.40* 0.37* CALCIUM 9.4 9.3 9.7 CMP: Recent Labs Lab 01/14/2342301/13/23 0432 01/12/23 0350 AST 13 11 13 ALT 7 8 9 TBILI 0.2 0.2 0.3 ALKPHOS 77 81 87 ALB 2.6* 2.6* 2.7* PROT 6.7 6.8 7.2 Coagulation: No results for input(s): PT, INR, APTT in the last 168 hours. Discharge Exam: Vitals: BP 140/86 Pulse 107 Temp 97.2 ??F (36.2 ??C) (Axillary) Resp 25 Ht 1.778 m (5' 10 ) Wt 71.5 kg (157 lb 10.1 oz) SpO2 100% General - NAD, afebrile, non cachectic, alert and awake HEENT??- NC/AT, clear conjunctivae, moist mucous membranes Neck??- Supple, no LAD, Trach in place to MV?? Chest??- CTAB no crackles or wheezes bilaterally CV - RRR no murmurs, radial pulses 2/4 Abdomen - Soft, NT/ND, positive bowel sounds, GJ tube is in place Extremities??- No edema noted Skin??- multiple lesions present on face Neurologic??- alert and awake, able to follow commands Psych??- Unable to assess DISCHARGE PLANNING Disposition: terminal [facility] care facility Patient Instructions: Medication List START taking these medications pantoprazole 40 MG packet Commonly known as: Protonix Take 1 (one) packet by mouth once daily senna-docusate 8.6-50 MG tablet Commonly known as: Senokot-S Take 1 (one) tablet by mouth once daily as needed for Constipation CHANGE how you take these medications acetaminophen 325 MG tablet Commonly known as: Tylenol 2 (two) tablets by Enteral Tube route every 6 hours as needed Maximum allowable Acetaminophen amount = 4 Grams (4000 mg) / 24 hours. What changed: ?? medication strength ?? how much to take levETIRAcetam 1000 MG tablet Commonly known as: Keppra 2 (two) tablets by Enteral Tube route 2 times daily What changed: ?? medication strength ?? how much to take ?? how to take this ?? when to take this ?? Another medication with the same name was removed. Continue taking this medication, and follow the directions you see here. valproic acid 250 MG/5ML solution Commonly known as: Depakene 10 mL by Per G Tube route 4 times daily What changed: ?? how much to take ?? how to take this ?? when to take this CONTINUE taking these medications artificial tears ophthalmic ointment Instill into both eyes every 8 hours aspirin 81 MG chew tablet Commonly known as: Aspirin atorvastatin 40 MG tablet Commonly known as: Lipitor 1 (one) tablet by Enteral Tube route once daily cloBAZam 20 MG tablet Commonly known as: Onfi 1 (one) tablet by Enteral Tube route 2 times daily enoxaparin 40 MG/0.4ML injection Commonly known as: Lovenox folic acid 1 MG tablet Commonly known as: Folvite 1 (one) tablet by Enteral Tube route once daily guaiFENesin 100 MG/5ML solution Commonly known as: Robitussin 10 mL by Enteral Tube route every 6 hours lacosamide 200 MG tablet Commonly known as: Vimpat 1 (one) tablet by Enteral Tube route 2 times daily metoprolol tartrate IR 25 MG tablet Commonly known as: Lopressor 1 (one) tablet by Enteral Tube route 2 times daily polyethylene glycol 3350 17 g packet Commonly known as: Miralax 17 (seventeen) g by Enteral Tube route once daily thiamine 100 MG tablet Commonly known as: Vitamin B-1 1 (one) tablet by Enteral Tube route once daily STOP taking these medications albuterol-ipratropium 0.5-2.5 (3) MG/3ML nebulizer solution Commonly known as: Duo-Neb cefdinir 300 MG capsule Commonly known as: Omnicef clopidogrel 75 MG tablet Commonly known as: plaVIX divalproex DR 125 MG tablet Commonly known as: Depakote divalproex sprinkle 125 MG capsule Commonly known as: Depakote Sprinkle docusate sodium 150 MG/15ML solution Commonly known as: Colace levalbuterol 1.25 MG/3ML nebulizer solution Commonly known as: Xopenex levoFLOXacin 250 MG tablet Commonly known as: Levaquin levoFLOXacin 500 MG tablet Commonly known as: Levaquin levoFLOXacin 750 MG tablet Commonly known as: Levaquin ondansetron 4 MG tablet Commonly known as: Zofran tamsulosin 0.4 MG capsule Commonly known as: Flomax Tobramycin Sulfate 80 MG/2ML Where to Get Your Medications Information about where to get these medications is not yet available Ask your nurse or doctor about these medications ?? acetaminophen 325 MG tablet ?? levETIRAcetam 1000 MG tablet ?? pantoprazole 40 MG packet ?? senna-docusate 8.6-50 MG tablet ?? valproic acid 250 MG/5ML solution Discharge Instructions DISCHARGE INSTRUCTIONS? Hospital Course: Patient is 62 year old male with history of epilepsy, chronic hypoxic respiratory failure (w/ trach), H/o multiple CVA's w/ residual deficits, PEG dependent, HTN, vascular dementia, alcohol use disorder. admitted on 12/31/2022 from OSH for continued seizures and concern for status epilepticus. Initially admitted at [facility] on 12/18/22 for hypoxia and tachycardia. Found to have a RLLpneumonia. Sputum cultures were significant for Pseudomonas and Actinobacter resistant to multiple antibiotics. He completed a course of cefepime (EOT 12/25) and Bactrim (EOT 12/30) with improvement in leukocytosis and clinical symptoms. OSH initially planned to discharge on 12/28 however patient began having worsening seizures that were recurrent in nature. Home Clobazam was not on formulary at OSH. Neurology was consulted for concern of status epilepticus. Remainder of home Keppra 200mg BID, Valproate 750mg BID, and Lacosamide 200mg BID were continued. On 12/30 Neurology increased his Valproate to 750mg QID as patient continued to have recurrent seizures. He was transferred for higher level of care and continuous EEG given concern for subclinical seizures. On presentation patient is unable to communicate given propofol drip. Per family he is normally A&Ox4. He has not had a seizure since last year until this previous admission per family. On admission VSS; satting well w/ FiO2 30%, PEEP 5. Trach and GJ tube in place; placement confirmed with radiology. Outside paredes exchanged. Initial ABG w/ pH 7.50, CO2 33, and O2 175. Repeat ABG following adju stment improved. w/ pH 7.44. Labs w/ K 4.8, Mg. 1.9, Phos 3.1, Lactate 1.6, WBC 6.8, Hg 10.3. Tropsnegative. CXR unremarkable; trach in proper position. KUB w/ well positioned GJ tube. In the MICU, neurology was consulted. Patient started on Propofol drip, hooked up to cEEG and restarted his home AEDs. EEG showed initially seizure like activity that with restarting of his meds, brain waves improved, significantly. Trach collar trial was performed 01/10. Pt tolerated the trial well. Patient was tachycardiac to 128 overnight on 01/11 and required a lot of suction due to copious amounts of secretion along with not clearing them very well. INTERIOR DESIGN CONSULTANT was consulted for eval, which revealedpatient was able to briefly tolerate finger occlusion of the trach but due to copious amounts of mucus and secretions along with being lethargic, a PMV was not placed. Dear Mojgan Tabor,? You were admitted for concern of prolonged seizures. The brain doctors were also seeing you and performed a brain wave imaging that revealed evidence of seizures. Your home seizure medications were given, and you improved. 1. DISCHARGE MEDICATIONS:? Below were changes made to your home medications:? START TAKING (and why)? Continue seizure medication regimen of: Keppra 2000mg BID, Clobazam 20mg BID, Lacosamide 200mg BID, Valproate 500mg QID HOLD (discuss with PCP or specialist before restarting. Do not take until further instruction from a doctor)? -?Plavix-please discuss with your PCP before restarting this medication: has not had medication filled since November, unclear of indication for plavix ? Other than the changes stated above, continue all other home medications as prescribed.? Please discuss these changes with your Primary Care Physician (or your specialist doctor).?? If you have any questions about your medications, please ask the pharmacy when you wind up worker your prescription. You may also call your primary provider if you still have questions.? ? 2. FOLLOW-UP:? Please follow up with your PCP in 1-2 weeks. -If you are not going home but to Rehab or Usp, ask the providers there about going to [...] of time and reschedule the appointment.? ? 3. ?Lifestyle Modifications? -It is very important for [...] in your care!? ? Internal Medicine Team? [facility] [address]? [place] [address]? Signed: Sondra Hansen DO Internal Medicine Resident [facility] 01/14/2023 6:09 PM Associated attestation - Lisset Norris MD - 01/14/2023 7:05 PM CDT Medical ICU Attending Note I have seen and examined the patient with the resident/fellow. I agree with the resident/fellow note except for the following additions/corrections. In brief, Mojgan Tabor is a 62 year old male with h/o ETOH D/O, HTN, vascular dementia, CVAs with residua, chronic hypoxic respiratory failure with trach, PEG, h/o epilepsy admitted to the ICU from OSH for concern for status epilepticus and PNA. Restarted on home AEDS and EEG showed seizure like activity that stopped with restarting AEDs ON: Following commands, continues to tolerate TC Improved UOP with increase free water Awaiting Vita bed. Still some tachycardia but responding to fluids. No fever, increased secretions or other focal signs of infection at present Data: I have personally reviewed the pertient labs and imaging. History of CVA (cerebrovascular accident) (POA: Yes) Hyperlipidemia (POA: Yes) Status epilepticus (CMS/HCC) (POA: Yes) Seizure disorder (CMS/HCC) (POA: Yes) Chronic respiratory failure with hypoxia (CMS/HCC) (POA: Yes) Dementia, vascular (CMS/HCC) (POA: Yes) PEG (percutaneous endoscopic gastrostomy) status (CMS/HCC) (POA: Yes) Tracheostomy in place (CMS/HCC) (POA: Yes) Anemia of chronic disease (POA: Yes) Acute encephalopathy (POA: Yes) Assessment: Status epilepticus - resolved, acute encephalopathy - improving, hypotension - resolved, Acute on chronic hypoxic respiratory - improved, aspiration PNA - resolved, hyponatremia - resolved. Tachycardia and decrease UOP suspect intravascular volume depletion, improved The plan of care consists of: Continue TC weaning oxygen as able, continue AEDs, monitor for seizures, CTM electrolytes, continue TF, continue increased free water, LTAC placement when able Date of Service: 01/14/2023 Critical Care attending: Lisset Norris MD 01/14/2023 7:04 PM documented in this encounter Discharge Instructions * Discharge Instructions* Kat Myers MD - 01/12/2023 5:24 PM CDT DISCHARGE INSTRUCTIONS? Hospital Course: Patient is 62 year old male with history of epilepsy, chronic hypoxic respiratory failure (w/ trach), H/o multiple CVA's w/ residual deficits, PEG dependent, HTN, vascular dementia, alcohol use disorder. admitted on 12/31/2022 from OSH for continued seizures and concern for status epilepticus. Initially admitted at [facility] on 12/18/22 for hypoxia and tachycardia. Found to have a RLLpneumonia. Sputum cultures were significant for Pseudomonas and Actinobacter resistant to multiple antibiotics. He completed a course of cefepime (EOT 12/25) and Bactrim (EOT 12/30) with improvement in leukocytosis and clinical symptoms. OSH initially planned to discharge on 12/28 however patient began having worsening seizures that were recurrent in nature. Home Clobazam was not on formulary at OSH. Neurology was consulted for concern of status epilepticus. Remainder of home Keppra 200mg BID, Valproate 750mg BID, and Lacosamide 200mg BID were continued. On 12/30 Neurology increased his Valproate to 750mg QID as patient continued to have recurrent seizures. He was transferred for higher level of care and continuous EEG given concern for subclinical seizures. On presentation patient is unable to communicate given propofol drip. Per family he is normally A&Ox4. He has not had a seizure since last year until this previous admission per family. On admission VSS; satting well w/ FiO2 30%, PEEP 5. Trach and GJ tube in place; placement confirmed with radiology. Outside paredes exchanged. Initial ABG w/ pH 7.50, CO2 33, and O2 175. Repeat ABG following adju stment improved. w/ pH 7.44. Labs w/ K 4.8, Mg. 1.9, Phos 3.1, Lactate 1.6, WBC 6.8, Hg 10.3. Tropsnegative. CXR unremarkable; trach in proper position. KUB w/ well positioned GJ tube. In the MICU, neurology was consulted. Patient started on Propofol drip, hooked up to cEEG and restarted his home AEDs. EEG showed initially seizure like activity that with restarting of his meds, brain waves improved, significantly. Trach collar trial was performed 01/10. Pt tolerated the trial well. Patient was tachycardiac to 128 overnight on 01/11 and required a lot of suction due to copious amounts of secretion along with not clearing them very well. INTERIOR DESIGN CONSULTANT was consulted for eval, which revealedpatient was able to briefly tolerate finger occlusion of the trach but due to copious amounts of mucus and secretions along with being lethargic, a PMV was not placed. Of note, patient has been tachycardic with improvement with IVF. He received 1.5 L of IVF prior to discharge. DISCHARGE MEDICATIONS:? Below were changes made to your home medications:? Medication List START taking these medications pantoprazole 40 MG packet Commonly known as: Protonix Take 1 (one) packet by mouth once daily senna-docusate 8.6-50 MG tablet Commonly known as: Senokot-S Take 1 (one) tablet by mouth once daily as needed for Constipation CHANGE how you take these medications acetaminophen 325 MG tablet Commonly known as: Tylenol 2 (two) tablets by Enteral Tube route every 6 hours as needed Maximum allowable Acetaminophen amount = 4 Grams (4000 mg) / 24 hours. What changed: medication strength how much to take levETIRAcetam 1000 MG tablet Commonly known as: Keppra 2 (two) tablets by Enteral Tube route 2 times daily What changed: medication strength how much to take how to take this when to take this Another medication with the same name was removed. Continue taking this medication, and follow the directions you see here. valproic acid 250 MG/5ML solution Commonly known as: Depakene 10 mL by Per G Tube route 4 times daily What changed: how much to take how to take this when to take this CONTINUE taking these medications artificial tears ophthalmic ointment Instill into both eyes every 8 hours aspirin 81 MG chew tablet Commonly known as: Aspirin atorvastatin 40 MG tablet Commonly known as: Lipitor 1 (one) tablet by Enteral Tube route once daily cloBAZam 20 MG tablet Commonly known as: Onfi 1 (one) tablet by Enteral Tube route 2 times daily enoxaparin 40 MG/0.4ML injection Commonly known as: Lovenox folic acid 1 MG tablet Commonly known as: Folvite 1 (one) tablet by Enteral Tube route once daily guaiFENesin 100 MG/5ML solution Commonly known as: Robitussin 10 mL by Enteral Tube route every 6 hours lacosamide 200 MG tablet Commonly known as: Vimpat 1 (one) tablet by Enteral Tube route 2 times daily metoprolol tartrate IR 25 MG tablet Commonly known as: Lopressor 1 (one) tablet by Enteral Tube route 2 times daily polyethylene glycol 3350 17 g packet Commonly known as: Miralax 17 (seventeen) g by Enteral Tube route once daily thiamine 100 MG tablet Commonly known as: Vitamin B-1 1 (one) tablet by Enteral Tube route once daily STOP taking these medications albuterol-ipratropium 0.5-2.5 (3) MG/3ML nebulizer solution Commonly known as: Duo-Neb cefdinir 300 MG capsule Commonly known as: Omnicef clopidogrel 75 MG tablet Commonly known as: plaVIX divalproex DR 125 MG tablet Commonly known as: Depakote divalproex sprinkle 125 MG capsule Commonly known as: Depakote Sprinkle docusate sodium 150 MG/15ML solution Commonly known as: Colace levalbuterol 1.25 MG/3ML nebulizer solution Commonly known as: Xopenex levoFLOXacin 250 MG tablet Commonly known as: Levaquin levoFLOXacin 500 MG tablet Commonly known as: Levaquin levoFLOXacin 750 MG tablet Commonly known as: Levaquin ondansetron 4 MG tablet Commonly known as: Zofran tamsulosin 0.4 MG capsule Commonly known as: Flomax Tobramycin Sulfate 80 MG/2ML Where to Get Your Medications Information about where to get these medications is not yet available Ask your nurse or doctor about these medications acetaminophen 325 MG tablet levETIRAcetam 1000 MG tablet pantoprazole 40 MG packet senna-docusate 8.6-50 MG tablet valproic acid 250 MG/5ML solution Plavix-please discuss with your PCP before restarting this medication: has not had medication filled since November, unclear of indication for plavix ? Other than the changes stated above, continue all other home medications as prescribed.? Please discuss these changes with your Primary Care Physician (or your specialist doctor).?? If you have any questions about your medications, please ask the pharmacy when you wind up worker your prescription. You may also call your primary provider if you still have questions.? ? 2. FOLLOW-UP:? Please follow up with your PCP in 1-2 weeks. -If you are not going home but to Rehab or [facility]sp, ask the providers there about going to [...] of time and reschedule the appointment.? ? 3. ?Lifestyle Modifications? -It is very important for [...] in your care!? ? Internal Medicine Team? [facility] [address] [facility]? [place] [address]? documented in this encounter Medications at Time [...] tablet by Enteral Tube route once daily folic acid (Folvite) 1 MG tablet 1 (one) tablet by Enteral Tube route once daily 04/01/2022 metoprolol tartrate IR (Lopressor) 25 MG tablet 1 (one) tablet by Enteral Tube route 2 times daily 12/15/2022 pantoprazole (Protonix) 40 MG packet Take 1 (one) packet by mouth once daily 0 01/12/2023 thiamine (Vitamin B-1) 100 MG tablet 1 (one) tablet by Enteral Tube route once daily 04/01/2022 atorvastatin (Lipitor) 40 MG tablet 1 (one) tablet by Enteral Tube route once daily 04/01/2022 02/28/2023 cloBAZam (Onfi) 20 MG tabletIndications:Pa rtial symptomatic epilepsy with simple partial seizures, not intractable, without status epilepticus (HCC) 1 (one) tablet by Enteral Tube route 2 times daily 60 tablet 5 11/11/2022 02/13/2023 enoxaparin (Lovenox) 40 MG/0.4ML injection Inject 40 (forty) mg subcutaneously once daily 02/28/2023 guaiFENesin (Robitussin) 100 MG/5ML solution 10 mL by Enteral Tube route every 6 hours 10/22/2022 02/28/2023 lacosamide (Vimpat) 200 MG tabletIndications:Pa rtial symptomatic epilepsy with simple partial seizures, not intractable, without status epilepticus (HCC) 1 (one) tablet by Enteral Tube route 2 times daily 60 tablet 5 11/11/2022 02/28/2023 lacosamide (VIMPAT) 200 MG tablet Take 1 tablet by mouth 2 times daily for 30 days 60 tablet 5 05/16/2019 06/28/2023 levETIRAcetam (Keppra) 1000 MG tablet 2 (two) tablets by Enteral Tube route 2 times daily 01/12/2023 02/28/2023 polyethylene glycol 3350 (Miralax) 17 g packet 17 (seventeen) g by Enteral Tube route once daily 12/16/2022 02/28/2023 senna-docusate (Senokot-S) 8.6-50 MG tablet Take 1 (one) tablet by mouth once daily as needed for Constipation 01/12/2023 02/29/20 23 valproic acid (Depakene) 250 MG/5ML solution 10 mL by Per G Tube route 4 times daily 01/12/2023 02/28/2023 documented as of this encounter Progress Notes * Dina Gardner RN - 01/14/2023 10:42 PM CDT Problem: Mechanical Ventilation Goal: Patent airway Outcome: Adequate for Discharge Goal: Oral health is maintained or improved Outcome: Adequate for Discharge Goal: Tracheostomy will be managed safely Outcome: Adequate for Discharge Goal: Ability to express needs and understand communication Outcome: Adequate for Discharge Goal: Mobility/activity is maintained at optimum level for patient Outcome: Adequate for Discharge Problem: Oxygenation/Respiratory Function Goal: Patent airway Outcome: Adequate for Discharge Goal: Respiratory rate/effort will be within specified limits Outcome: Adequate for Discharge Problem: Care of Tracheostomy Goal: Tracheostomy tube and site will be maintained Outcome: Adequate for Discharge Problem: Potential for Infection Goal: Insertion site without signs/symptoms of infection Outcome: Adequate for Discharge Problem: Knowledge Deficit Goal: Patient/Significant other demonstrates understanding of Tracheostomy Outcome: Adequate for Discharge Problem: Nutrient: Malnutrition Goal: Total intake will meet estimated nutrient needs Outcome: Adequate for Discharge Problem: Skin Integrity Goal: Skin integrity is maintained or improved Outcome: Adequate for Discharge Problem: Pain/Discomfort Goal: Patient exhibits reduced pain/discomfort as evidenced by pain scores Outcome: Adequate for Discharge Goal: Patient uses pharmacological and non-pharmacological pain management strategies. Outcome: Adequate for Discharge Goal: Patient verbalizes acceptable level of pain relief and ability to engage in desired activity. Outcome: Adequate for Discharge Problem: Fall Risk Goal: Fall risk and fall related injury risk are minimized (interventions related to the fall risk can be found in the flowsheet documentation) Outcome: Adequate for Discharge * John Aguero RN - 01/14/2023 6:18 PM CDT Facility Transfer Note Level of Care: Actual level of care at discharge: Usp - Medicaid Facility Name:[facility] [address] [place] [address] RN Call Report to: [phone] Fax D/C Orders to: [phone] Transportation (company and number): [employer] transportation arranged by Melissa Alford LCSW, [phone] to provide d.c transportation with an eta of 2300 Date/time of transfer: 01/14/23 2300 Accepting MD and contact #: DR. NGO [phone] Family/Other Notified of Transfer: Sister Adriane Hilliard Phone number [phone] Authorization for Transportation:NA Comments: was notified by Zarina Clinical liasion for [facility] that insurance authorization was obtained [facility]. Care team was notified. Patient's sister Adriane Hilliard was notified of discharge via phone. Name/Phone number: John Aguero RN BSN education and training manager [phone] * Melissa Alford LCSW - 01/14/2023 6:06 PM CDT CATH LAB MANAGER SW received a call from MD inquiring about d/c pt. Pt is able to d/c and [facility] is expecting pt. [employer] [phone] to provide d.c transportation with an eta of 2300 [facility] faxed tomed[employer] 01 Melissa Alford LCSW * Dina Gardner RN - 01/14/2023 6:26 AM CDT Problem: Mechanical Ventilation Goal: Oral health is maintained or improved Outcome: Progressing Problem: Mechanical Ventilation Goal: Tracheostomy will be managed safely Outcome: Progressing Problem: Mechanical Ventilation Goal: Ability to express needs and understand communication Outcome: Progressing Problem: Mechanical Ventilation Goal: Mobility/activity is maintained at optimum level for patient Outcome: Progressing Problem: Oxygenation/Respiratory Function Goal: Patent airway Outcome: Progressing Problem: Oxygenation/Respiratory Function Goal: Respiratory rate/effort will be within specified limits Outcome: Progressing Problem: Care of Tracheostomy Goal: Tracheostomy tube and site will be maintained Outcome: Progressing Problem: Potential for Infection Goal: Insertion site without signs/symptoms of infection Outcome: Progressing Problem: Knowledge Deficit Goal: Patient/Significant other demonstrates understanding of Tracheostomy Outcome: Progressing Problem: Nutrient: Malnutrition Goal: Total intake will meet estimated nutrient needs Outcome: Progressing Problem: Skin Integrity Goal: Skin integrity is maintained or improved Outcome: Progressing Problem: Pain/Discomfort Goal: Patient exhibits reduced pain/discomfort as evidenced by pain scores Outcome: Progressing Goal: Patient uses pharmacological and non-pharmacological pain management strategies. Outcome: Progressing Goal: Patient verbalizes acceptable level of pain relief and ability to engage in desired activity. Outcome: Progressing Problem: Fall Risk Goal: Fall risk and fall related injury risk are minimized (interventions related to the fall risk can be found in the flowsheet documentation) Outcome: Progressing * Sondra Hansen, - 01/13/2023 3:14 PM CDT MICU Progress Note 01/13/2023 3:14 PM Patient: Mojgan Tabor (:1960) Room: [facility] Admit Date: 12/31/2022. Hospital Day: 13 CC: Seizures Hospital Course: Mojgan Tabor is 62 year old male with history of epilepsy, chronic hypoxic respiratory failure (w/ trach), H/o multiple CVA's w/ residual deficits, PEG dependent, HTN, vascular dementia, alcohol use disorder. admitted on 12/31/2022 from OSH for continued seizures and concern for status epilepticus. ?? Initially admitted at [facility] on 12/18/22 for hypoxia and tachycardia. Found to have a RLLpneumonia. Sputum cultures were significant for Pseudomonas and Actinobacter resistant to multiple antibiotics. He completed a course of cefepime (EOT 12/25) and Bactrim (EOT 12/30) with improvement in leukocytosis and clinical symptoms. OSH initially planned to discharge on 12/28 however patient began having worsening seizures that were recurrent in nature. Home Clobazam was not on formulary at OSH. Neurology was consulted for concern of status epilepticus. Remainder of home Keppra 200mg BID, Valproate 750mg BID, and Lacosamide 200mg BID were continued. On 12/30 Neurology increased his Valproate to 750mg QID as patient continued to have recurrent seizures. He was transferred for higher level of care and continuous EEG given concern for subclinical seizures. ?? On presentation patient is unable to communicate given propofol drip. Per family he is normally A&Ox4. He has not had a seizure since last year until this previous admission per family. On admission VSS; satting well w/ FiO2 30%, PEEP 5. Trach and GJ tube in place; placement confirmed with radiology. Outside paredes exchanged. Initial ABG w/ pH 7.50, CO2 33, and O2 175. Repeat ABG following adju stment improved. w/ pH 7.44. Labs w/ K 4.8, Mg. 1.9, Phos 3.1, Lactate 1.6, WBC 6.8, Hg 10.3. Tropsnegative. CXR unremarkable; trach in proper position. KUB w/ well positioned GJ tube. In the MICU, neurology was consulted. Patient started on Propofol drip, hooked up to cEEG and restarted his home AEDs. EEG showed initially seizure like activity that with restarting of his meds, brain waves improved, significantly. Trach collar trial was performed 01/10. Pt tolerated the trial well. Patient was tachycardiac to 128 overnight on 01/11 and required a lot of suction due to copious amounts of secretion along with not clearing them very well. INTERIOR DESIGN CONSULTANT was consulted for eval, which revealedpatient was able to briefly tolerate finger occlusion of the trach but due to copious amounts of mucus and secretions along with being lethargic, a PMV was not placed. Interval History: Patient is stable and did well overnight with no acute events. Patient awaiting bed at [facility]. Objective: Vitals: 01/13/23 1200 01/13/23 1300 01/13/23 1400 01/13/23 1500 BP: 153/83 154/87 153/83 123/76 Pulse: 89 101 96 84 Resp: 24 24 20 Temp: 98 ??F (36.7 ??C) SpO2: 100% 100% 100% 100% Weight: Height: Intake/Output Summary (Last 24 hours) at 01/13/2023 1514 Last data filed at 01/13/2023 1500 Gross per 24 hour Intake 2167 ml Output 827 ml Net 1340 ml -pt has trach collar Physical Exam General - NAD, afebrile, non cachectic, alert and awake HEENT - NC/AT, clear conjunctivae, moist mucous membranes Neck - Supple, no LAD, Trach in place to MV Chest - CTAB no crackles or wheezes bilaterally CV - RRR no murmurs, radial pulses 2/4 Abdomen - Soft, NT/ND, positive bowel sounds, GJ tube is in place Extremities - No edema noted Skin - multiple lesions present on face Neurologic - alert and awake, able to follow commands Psych - Unable to assess ?? Labs: CBC: Recent Labs Component Name 01/13/23 04301/12/23 0350 01/11/23 0409 WBC 7.6 9.5 5.9 HGB 11.0* 11.8* 10.6* HCT 34.5* 36.7 33.2* BMP: Recent Labs Component Name 01/13/23 04301/12/23 0350 01/11/23 0409 NA 139 141 141 CL 106 108* 105 CO2 28 25 29 BUN 15 13 16 CREATININE 0.40* 0.37* 0.40* CALCIUM 9.3 9.7 9.5 PHOS 2.7* 2.5* 2.4* Hepatic: Recent Labs Component Name 01/13/23 04301/12/23 0350 01/11/23 0409 ALT 8 9 7 AST 11 13 12 TBILI 0.2 0.3 0.2 PROT 6.8 7.2 6.5 ALB 2.6* 2.7* 2.5* ALKPHOS 81 87 79 Coagulation: Recent Labs Component Name 12/31/22205212/13/22 0146 12/09/22 1211 PT 13.7 13.3 14.3 INR 1.1 1.0 1.1 Micro: None Imaging: Imaging reviewed. Assessment: History of CVA (cerebrovascular accident) (POA: Yes) Hyperlipidemia (POA: Yes) Status epilepticus (CMS/HCC) (POA: Yes) Seizure disorder (CMS/HCC) (POA: Yes) Chronic respiratory failure with hypoxia (CMS/HCC) (POA: Yes) Dementia, vascular (CMS/HCC) (POA: Yes) PEG (percutaneous endoscopic gastrostomy) status (CMS/HCC) (POA: Yes) Tracheostomy in place (CMS/HCC) (POA: Yes) Anemia of chronic disease (POA: Yes) Acute encephalopathy (POA: Yes) PLAN: Neurological: RASS goal -1-0 #Focal Epilepsy #Concern for Status Epilepticus In setting of cefepime use and discontinuation of Clobazam and acute PNA at OSH Concern for subclinical seizures and status epilepticus given continued seizures at OSH despite treatment Episodes of facial twitching. Home regimen: Keppra 2000mg BID, Clobazam 20mg BID, Lacosamide 200mg BID, Valproate 500mg QID Elevated Trig (700s), but normal CK PLAN: - Neurology consulted - Off propofol, EEG shows no seizure activity, continue to observe - Continue home regimen as above. - If patient continues to seize, please call/page general neurology and discuss adding a second granite cutter - On seizure and fall precaution - valproate 500mg QID home dose -valproate total levels on 01/10: 57, free level of 16 ?? #Acute Encephalopathy #Vascular dementia Likely secondary to continued seizures, sedation and previously likely secondary to infection. Baseline A&Ox3 per family. Ammonia,TSH, wnl CT Head showed no acute findings PLAN: - Aspiration precaution Cardiovascular: MAP goal > 65 #Tachycardia: resolved -most likely due to pt's copious amounts of secretions and not having a great cough to clear them; required suctioning about every 30 minutes overnight and improved to suctioning about once an hour during the morning PLAN: -continue robitussin -CTM #Hypotension: resolved Weaned off of propofol S/p 500cc LR PLAN: -keep PICC line in place, multiple providers including anesthesia unable to place PIV, regular dressings changes for PICC line. ?? #HTN - home metoprolol 25mg BID ?? Pulmonary: SpO2 goal - 92% ?? #Chronic Hypoxic Respiratory Failure: improved - Trach collar in place, tolerated the trial well - VBG 01/11 pH 7.40, pCO2 50, pO2 79, and HCO3 31.0 #Aspiration Pneumonia- Resolved - S/p treatment for aspiration pneumonia as below GI: #GJ tube dependence - KUB w/ evidence of proper placement - Tube feeds adjust daily to goal of 50mL ?? Renal: MARI, pt admitted to [facility] with chronic paredes that was exchanged on admission, keep in place atthis time ?? #Decreased UOP: Improving -pt's lena was able to flush and was working, unlikely the cause PLAN: -increase FWF to 250 mL q 4 hours Endocrine: BGM goal 140-180 mg/dL ?? ID: #Aspiration Pneumonia- Resolved - Initially Hypoxic and tachycardic; CT Chest w/ consolidation of R lung and small pleural effusion. - Cultures at OSH w/ Pseudomonas and Acinetobacter resistant to multiple antibiotics - S/p treatment course w/ cefepime (EOT 12/25) and bactrim (EOT 12/30) - Afebrile on admission; no leukocytosis - CXR w/ no evidence of persistent consolidation. ?? Heme/Onc: #Anemia - Iron studies: ferritin of 55, folate 14.7, iron of 53, TIBC of 319, transferrin of 255 - Vit B12??: 1813 -MCV of 97.2 -Hgb of 11.0 -CTM with CBC FEN: -Monitor electrolytes QD, Replace K<4, Mg<2, Phos<3 ?? #Hyponatremia: resolved Volume down vs SIADH vs Adrenal Insufficiency S/p 500cc LR PLAN: - AM cortisol blood wnl -CTM #Hypokalemia: resolved #Hypophospotemia: -K of 3.6 -Phos of 2.7 PLAN: -repleted with K Phos -CTM Lines: PICC, Trach, Paredes, GJ tube Prophylaxis: Aspiration precautions w/ HOB elevation by 30 degrees GI prophyalxis w/ protonix DVT prophyalxis w/ SCDs, Lovenox Diet: NPO, TF Activity: Ambulate/ Up ad daniela Disposition: LTACH; likely discharge 01/14 to [facility] Code Status: Full Sondra Hansen DO Associated attestation - Lisset Norris MD - 01/13/2023 4:46 PM CDT Medical ICU Attending Note I have seen and examined the patient with the resident/fellow. I agree with the resident/fellow note except for the following additions/corrections. In brief, Mojgan Tabor is a 62 year old male with h/o ETOH D/O, HTN, vascular dementia, CVAs with residua, chronic hypoxic respiratory failure with trach, PEG, h/o epilepsy admitted to the ICU from OSH for concern for status epilepticus and PNA. Restarted on home AEDS and EEG showed seizure like activity that stopped with restarting AEDs ON: Following commands, continues to tolerate TC Improved UOP with increase free water Awaiting [facility] bed Data: I have personally reviewed the pertient labs and imaging. History of CVA (cerebrovascular accident) (POA: Yes) Hyperlipidemia (POA: Yes) Status epilepticus (CMS/HCC) (POA: Yes) Seizure disorder (CMS/HCC) (POA: Yes) Chronic respiratory failure with hypoxia (CMS/HCC) (POA: Yes) Dementia, vascular (CMS/HCC) (POA: Yes) PEG (percutaneous endoscopic gastrostomy) status (CMS/HCC) (POA: Yes) Tracheostomy in place (CMS/HCC) (POA: Yes) Anemia of chronic disease (POA: Yes) Acute encephalopathy (POA: Yes) Assessment: Status epilepticus - resolved, acute encephalopathy - improving, hypotension - resolved, Acute on chronic hypoxic respiratory - improved, aspiration PNA - resolved, hyponatremia - resolved. Tachycardia and decrease UOP suspect intravascular volume depletion, improved The plan of care consists of: Continue TC weaning oxygen as able, continue AEDs, monitor for seizures, CTM electrolytes, continue TF, continue increased free water, LTAC placement when able Date of Service: 01/13/2023 Critical Care attending: Lisset Norris MD 01/13/2023 4:43 PM * Elmo Caicedo SLP - 01/13/2023 1:45 PM CDT [facility] Passy [place] Valve Therapy Patient: Mojgan [facility]abor [facility] Record Number: [id number] Date of :: 1960 Age: [age] year old PPE: disposable gown, procedural mask, gloves Impressions: Patient reassessed at bedside for PMV. Patient able to tolerate finger occlusion of trach and wore PMV for 20 minutes with SPO2 above 98%. ST recommends for patient to wear PMV during waking hours and able to maintain SPO2 at/above 96% and to be removed for suctioning needs. ST will follow patient to assess PMV tolerance while in hospital. PMV Recommendations: Recommend use of PMV during waking hours Discharge Recommendations: LTAC Speech therapy is recommended for further assessment of speech/language/cognition. Subjective: Mental Status: Alert and responsive Pain: Patient does not report pain at this time Objective: Tracheostomy Tube: Bivona- 6 Breathing Status: trach collar- 6L/min Baseline spO2: 98% Phonation with finger occlusion: yes Voice quality: Breathy and Decreased intensity-if yes above Patient was educated re: effects of trach on phonation and the need for finger occlusion or PMV useto achieve voicing and improve communicative function. Assessment: PMV was placed by INTERIOR DESIGN CONSULTANT and patient was observed wearing valve for approximately 15 minutes. spO2 was98%+. Vocal quality with PMV in place was Breathy and Decreased intensity. Patient did not exhibit any change in respirations and did not complain of any shortness of breath. Patient was instructed in the valve's proper placement and removal. INTERIOR DESIGN CONSULTANT also educated patient on proper care of valve and instructions for use of valve (removed for sleep). Education: Patient and Nursing instructed in recommedations and indicated understanding. Use of PMV reviewed with Fernando SIMON. Instructions for use also communicated on patient's whiteboard. Goals: Short Term Goals: Patient to achieve phonation with Passy [place] Valve while on tracheostomy. Tv News Director Goal(s): Patient to be independent/baseline with speech/language/cognitive/swallowing to be able to safely discharge to prior level of care. If patient is discharged from the facility, this note serves as a discharge note if further speech therapy visits did not occur. Elmo Ansari M.A., ETTA-INTERIOR DESIGN CONSULTANT Speech Language Pathologist [phone] * John Aguero RN - 01/13/2023 1:04 PM CDT Care Coordination Progress Note Anticipated level of care at discharge: Tv News Director Acute Care (LTAC): Anticipated level of care provider: [facility]): Anticipated Discharge Date: 01/14/23: Discharge Plan: Pending insurance authorization for [facility]. CM talked to Zarina clinical liasion for [facility] and she told CM that insurance authorization has been restarted. Per Zarina there is no bed availability at present. CM will continue to follow up. Orientation Level: Unable to Obtain: Family Support (Name and Phone): Extended Emergency Contact Information Primary Emergency Contact: Adriane Hilliard Mobile Relation: Sister Garage Manager needed? No Secondary Emergency Contact: Amarjit Tabor [facility] Relation: Brother Transportation at Discharge: Ambulance: READMISSION RISK SCORE is 28 at 1:05 PM 01/13/2023.: Name: John Aguero RN BSN education and training manager [phone] * Nuria Guajardo RD/ONI - 01/13/2023 10:05 AM CDT Clinical Nutrition Assessment Brief Synopsis: Patient is diagnosed with severe malnutrition; Specific criteria can be found in assessment below Nutrition Plan: Vital AF 1.2 Bruno at goal of 50 ml/hr. Provides 1440 kcal, 90 g protein, 133 g carbohydrate, and 973 ml free water +50 ml q 6 hrs free water flush or per MD if on IVF +100 ml q4 hrs free water flush or per MD if not on additional fluids Recommendations to Physician: Bowel regimen Code for malnutrition Comments: Pt scheduled for reassessment. Pt receiving TF at 50 ml/hr via J tube. Last BM 01/11. D/c to LTAC soon. Assessment: Med/Surg History and Clinical Diagnoses: history of epilepsy, chronic hypoxic respiratory failure s/p trach and PEG, multiple CVA's with residual deficits, HTN, and vascular dementia who was transferred from OSH for status epilepticus Height: 177.8 cm (5' 10 ) Weight: 71.7 kg (158 lb) BMI: Body mass index is 22.67 kg/m??. BMI Range: Normal IBW/lb (Calculated) Male: 166 , Recent Weights/Methods 01/05/2023 0357 01/06/2023 0400 01/07/2023 0400 01/08/2023 0546 01/09/2023 0343 01/10/2023 0400 01/11/2023 0400 01/12/2023 040 Weight: 65.8 kg (145 lb) 70.3 kg (155 lb) 69.9 kg (154 lb 3.2 oz) 70.3 kg (154 lb 15.7 oz) 70.3 kg (155 lb) 70.3 kg (155 lb) 70.8 kg (156 lb) 71.7 kg (158 lb) Weight Method (Utilize Scales): Bedscale Bedscale Bedscale -- -- -- -- Bedscale Wt Comments: monitoring Diet order accuracy Current diet order: NPO Current tube feeding order: vital AF 50 ml/hr Nutrition recommendation: agree with current nutrition order P.O.Intake for the past 48 hrs: No data recorded Supplement(s) Consumed- Last 48 hours None Food Allergies: No known food allergies Chewing/Swallowing: (vent) Pain affecting intake: No Estimated Needs: KCAL: 1420-8329 (20-25kcal/kg (ABW)) Protein (g): 90g (1.5g/kg (ABW)) Fluid (ml): 1 ml/kcal Needs based on: Kcal/kg- (Comment) (ABW 59.6kg) Recommended Access Route: TF Malnutrition Etiology: Malnutrition in the context of: chronic disease, Malnutrition Severity: Severe Protein Calorie BMI: Body mass index is 22.67 kg/m??. GI Concerns: (J-tube) Nutrition Focused Physical Assessment: Loss of Subcutaneous Fat Orbital: Severe Buccal: Severe Muscle Loss Temples (Temporalis Muscle): Severe Clavicles (Pectoralis & Deltoids): Severe Shoulders (Deltoids): Severe Thigh (Quadriceps): Severe Pertinent Nutrition Labs: Recent Labs Component Name 01/13/23 0432 01/12/23 0350 01/11/23 0409 BUN 15 13 16 CREATININE 0.40* 0.37* 0.40* NA 139 141 141 POTASSIUM 3.6 3.6 3.3* CL 106 108* 105 CO2 28 25 29 GLUCOSE 103 109 98 CALCIUM 9.3 9.7 9.5 PROT 6.8 7.2 6.5 ALB 2.6* 2.7* 2.5* TBILI 0.2 0.3 0.2 ALKPHOS 81 87 79 ALT 8 9 7 AST 11 13 12 ANIONGAP 9 12 10 BCR 38* 35* 40* OSMOLALITY 289 293 293 AGRATIO 0.6* 0.6* 0.6* EGFR >90 >90 >90 Pertinent Nutrition Medications: Current Facility-Administered Medications Medication ??? 0.9% NaCl injection 3 mL And ??? 0.9% NaCl injection 1-10 mL ??? acetaminophen (Tylenol) tablet 650 mg ??? artificial tears ophthalmic ointment ??? aspirin chew tablet 81 mg ??? chlorhexidine (Peridex) 0.12 % oral solution 15 mL ??? cloBAZam (Onfi) tablet 20 mg ??? enoxaparin (Lovenox) injection 40 mg ??? guaiFENesin (Robitussin) solution 10 mL ??? lacosamide (Vimpat) tablet 200 mg ??? levETIRAcetam (Keppra) tablet 2,000 mg ??? metoprolol tartrate IR (Lopressor) tablet 25 mg ??? pantoprazole (Protonix) injection 40 mg ??? polyethylene glycol 3350 (Miralax) packet 17 g ??? senna-docusate (Senokot-S) tablet 1 tablet ??? triamcinolone acetonide (Kenalog) 0.025 % ointment ??? valproic acid (Depakene) solution 500 mg Skin/Wound: trach, J tube Education needed: None Nutrition Care Process (1) Nutrition Diagnostic Statement: Malnutrition severity: : Severe related to:: increased nutrient needs due to illness;alteration in gastrointestinal tract structureor function as evidenced by:: BMI less than 19 Nutrition Diagnostic Statement Progress: Nutrition problem continues Nutrition Intervention: Enteral nutrition: Monitoring: TF, BM, labs, meds, weight Evaluation: Nutrition Goal: Total intake will meet estimated nutrient needs Nutrition Goal Timeframe: Throughout stay Nutrition Goal Progress: Continue with current goal Ascom: [id number] * Sondra Hansen DO - 01/12/2023 6:19 PM CDT MICU Progress Note 01/12/2023 6:19 PM Patient: Mogjan Tabor (:1960) Room: [facility] Admit Date: 12/31/2022. Hospital Day: 12 CC: Seizures Hospital Course: Mojgan Tabor is 62 year old male with history of epilepsy, chronic hypoxic respiratory failure (w/ trach), H/o multiple CVA's w/ residual deficits, PEG dependent, HTN, vascular dementia, alcohol use disorder. admitted on 12/31/2022 from OSH for continued seizures and concern for status epilepticus. ?? Initially admitted at [facility] on 12/18/22 for hypoxia and tachycardia. Found to have a RLLpneumonia. Sputum cultures were significant for Pseudomonas and Actinobacter resistant to multiple antibiotics. He completed a course of cefepime (EOT 12/25) and Bactrim (EOT 12/30) with improvement in leukocytosis and clinical symptoms. OSH initially planned to discharge on 12/28 however patient began having worsening seizures that were recurrent in nature. Home Clobazam was not on formulary at OSH. Neurology was consulted for concern of status epilepticus. Remainder of home Keppra 200mg BID, Valproate 750mg BID, and Lacosamide 200mg BID were continued. On 12/30 Neurology increased his Valproate to 750mg QID as patient continued to have recurrent seizures. He was transferred for higher level of care and continuous EEG given concern for subclinical seizures. ?? On presentation patient is unable to communicate given propofol drip. Per family he is normally A&Ox4. He has not had a seizure since last year until this previous admission per family. On admission VSS; satting well w/ FiO2 30%, PEEP 5. Trach and GJ tube in place; placement confirmed with radiology. Outside paredes exchanged. Initial ABG w/ pH 7.50, CO2 33, and O2 175. Repeat ABG following adju stment improved. w/ pH 7.44. Labs w/ K 4.8, Mg. 1.9, Phos 3.1, Lactate 1.6, WBC 6.8, Hg 10.3. Tropsnegative. CXR unremarkable; trach in proper position. KUB w/ well positioned GJ tube. In the MICU, neurology was consulted. Patient started on Propofol drip, hooked up to cEEG and restarted his home AEDs. EEG showed initially seizure like activity that with restarting of his meds, brain waves improved, significantly. Trach collar trial was performed 01/10. Pt tolerated the trial well. Patient was tachycardiac to 128 overnight on 01/11 and required a lot of suction due to copious amounts of secretion along with not clearing them very well. INTERIOR DESIGN CONSULTANT was consulted for eval, which revealedpatient was able to briefly tolerate finger occlusion of the trach but due to copious amounts of mucus and secretions along with being lethargic, a PMV was not placed. Interval History: Patient was tachycardiac to 128 overnight and required suctioning about every 30 minutes due to copious amounts of secretion along with not clearing them very well. He was started on robitussin. INTERIOR DESIGN CONSULTANT was consulted for eval, which revealed patient was able to briefly tolerate finger occlusion of the trach but due to copious amounts of mucus and secretions along with being lethargic, a PMV was not placed. Plans for patient to return to [facility] tomorrow. Objective: Vitals: 01/12/23 1300 01/12/23 1400 01/12/23 1500 01/12/23 1600 BP: 106/79 138/78 130/80 123/68 Pulse: 90 92 94 93 Resp: 26 26 17 26 Temp: 97.3 ??F (36.3 ??C) SpO2: 100% 98% 100% 95% Weight: Height: Intake/Output Summary (Last 24 hours) at 01/12/2023 1819 Last data filed at 01/12/2023 1654 Gross per 24 hour Intake 1024 ml Output 1312 ml Net -288 ml -pt has trach collar Physical Exam General - NAD, afebrile, non cachectic HEENT - NC/AT, clear conjunctivae, moist mucous membranes Neck - Supple, no LAD, Trach in place to MV Chest - CTAB no crackles or wheezes bilaterally CV - RRR no murmurs, radial pulses 2/4 Abdomen - Soft, NT/ND, positive bowel sounds, GJ tube is in place Extremities - No edema noted bilaterally Skin - multiple lesions present on face Neurologic - able to follow commands Psych - Unable to assess ?? Labs: CBC: Recent Labs Component Name 01/12/23 0350 01/11/23 0409 01/10/23 0348 WBC 9.5 5.9 5.8 HGB 11.8* 10.6* 9.6* HCT 36.7 33.2* 29.6* BMP: Recent Labs Component Name 01/12/23 0350 01/11/23 0409 01/10/23 0348 NA 141 141 141 CL 108* 105 104 CO2 25 29 31* BUN 13 16 18 CREATININE 0.37* 0.40* 0.41* CALCIUM 9.7 9.5 9.4 PHOS 2.5* 2.4* 2.7* Hepatic: Recent Labs Component Name 01/12/230 01/11/23 0409 01/10/23 0348 ALT 9 7 8 AST 13 12 11 TBILI 0.3 0.2 0.3 PROT 7.2 6.5 6.4 ALB 2.7* 2.5* 2.5* ALKPHOS 87 79 75 Coagulation: Recent Labs Component Name 12/31/22205212/13/22 0146 12/09/22 1211 PT 13.7 13.3 14.3 INR 1.1 1.0 1.1 Micro: None Imaging: Imaging reviewed. Assessment: History of CVA (cerebrovascular accident) (POA: Yes) Hyperlipidemia (POA: Yes) Status epilepticus (CMS/HCC) (POA: Yes) Seizure disorder (CMS/HCC) (POA: Yes) Chronic respiratory failure with hypoxia (CMS/HCC) (POA: Yes) Dementia, vascular (CMS/HCC) (POA: Yes) PEG (percutaneous endoscopic gastrostomy) status (CMS/HCC) (POA: Yes) Tracheostomy in place (CMS/HCC) (POA: Yes) Anemia of chronic disease (POA: Yes) Acute encephalopathy (POA: Yes) PLAN: Neurological: RASS goal -1-0 #Focal Epilepsy #Concern for Status Epilepticus In setting of cefepime use and discontinuation of Clobazam and acute PNA at OSH Concern for subclinical seizures and status epilepticus given continued seizures at OSH despite treatment Episodes of facial twitching. Home regimen: Keppra 2000mg BID, Clobazam 20mg BID, Lacosamide 200mg BID, Valproate 500mg QID Elevated Trig (700s), but normal CK PLAN: - Neurology consulted - Off propofol, EEG shows no seizure activity, continue to observe - Continue home regimen as above. - If patient continues to seize, please call/page general neurology and discuss adding a second granite cutter - On seizure and fall precaution - valproate 500mg QID home dose -valproate total levels on 01/10: 57, free level of 16 ?? #Acute Encephalopathy #Vascular dementia Likely secondary to continued seizures, sedation and previously likely secondary to infection. Baseline A&Ox3 per family. Ammonia,TSH, wnl CT Head showed no acute findings PLAN: - Aspiration precaution Cardiovascular: MAP goal > 65 #Tachycardia: -most likely due to pt's copious amounts of secretions and not having a great cough to clear them; required suctioning about every 30 minutes overnight and improved to suctioning about once an hour during the morning PLAN: -pt was started on robitussin overnight -CTM #Hypotension: resolved Weaned off of propofol S/p 500cc LR PLAN: -keep PICC line in place, multiple providers including anesthesia unable to place PIV, regular dressings changes for PICC line. ?? #HTN - home metoprolol 25mg BID ?? Pulmonary: SpO2 goal - 92% ?? #Chronic Hypoxic Respiratory Failure: improved - Trach collar in place, tolerated the trial well - VBG 01/11 pH 7.40, pCO2 50, pO2 79, and HCO3 31.0 #Aspiration Pneumonia- Resolved - S/p treatment for aspiration pneumonia as below GI: #GJ tube dependence - KUB w/ evidence of proper placement - Tube feeds adjust daily to goal of 50mL ?? Renal: MARI, pt admitted to [facility] with chronic paredes that was exchanged on admission, keep in place atthis time ?? #Decreased UOP: -pt's paredes was able to flush and was working, unlikely the cause PLAN: -increase FWF to 200 mL q 4 hours Endocrine: BGM goal 140-180 mg/dL ?? ID: #Aspiration Pneumonia- Resolved - Initially Hypoxic and tachycardic; CT Chest w/ consolidation of R lung and small pleural effusion. - Cultures at OSH w/ Pseudomonas and Acinetobacter resistant to multiple antibiotics - S/p treatment course w/ cefepime (EOT 12/25) and bactrim (EOT 12/30) - Afebrile on admission; no leukocytosis - CXR w/ no evidence of persistent consolidation. ?? Heme/Onc: #Anemia - Iron studies: ferritin of 55, folate 14.7, iron of 53, TIBC of 319, transferrin of 255 - Vit B12??: 1813 -MCV of 97.1 -CTM with CBC FEN: -Monitor electrolytes QD, Replace K<4, Mg<2, Phos<3 ?? #Hyponatremia: resolved Volume down vs SIADH vs Adrenal Insufficiency S/p 500cc LR PLAN: - AM cortisol blood wnl -CTM #Hypokalemia: #Hypophospotemia: -K of 3.6 -Phos of 2.5 PLAN: -repleted with K Phos -CTM Lines: PICC, Trach, Paredes, GJ tube Prophylaxis: Aspiration precautions w/ HOB elevation by 30 degrees GI prophyalxis w/ protonix DVT prophyalxis w/ SCDs, Lovenox Diet: NPO, TF Activity: Ambulate/ Up ad daniela Disposition: LTACH; likely discharge 01/13 to [facility] Status: Full Sondra Hansen DO Associated attestation - Lisest Norris MD - 01/12/2023 6:45 PM CDT Medical ICU Attending Note I have seen and examined the patient with the resident/fellow. I agree with the resident/fellow note except for the following additions/corrections. In brief, Mojgan Tabor is a 62 year old male with h/o ETOH D/O, HTN, vascular dementia, CVAs with residua, chronic hypoxic respiratory failure with trach, PEG, h/o epilepsy admitted to the ICU from OSH for concern for status epilepticus and PNA. Restarted on home AEDS and EEG showed seizure like activity that stopped with restarting AEDs ON: Following commands, tolerated TC ON but was tachycardic ON and increased secretions but no fever. Mild decrease in UOP this afternoon. Free water increased. Data: I have personally reviewed the pertient labs and imaging. History of CVA (cerebrovascular accident) (POA: Yes) Hyperlipidemia (POA: Yes) Status epilepticus (CMS/HCC) (POA: Yes) Seizure disorder (CMS/HCC) (POA: Yes) Chronic respiratory failure with hypoxia (CMS/HCC) (POA: Yes) Dementia, vascular (CMS/HCC) (POA: Yes) PEG (percutaneous endoscopic gastrostomy) status (CMS/HCC) (POA: Yes) Tracheostomy in place (CMS/HCC) (POA: Yes) Anemia of chronic disease (POA: Yes) Acute encephalopathy (POA: Yes) Critical care was necessary to treat or prevent life-threatening deterioration of the following: Status epilepticus - resolved, acute encephalopathy - improving, hypotension - resolved, Acute on chronic hypoxic respiratory - improving, aspiration PNA - resolved, hyponatremia - resolved. Tachycardiaand decrease UOP suspect intravascular volume depletion The plan of care consists of: Continue TC weaning oxygen as able, continue AEDs, monitor for seizures, CTM electrolytes, continue TF, increase free water, LTAC placement when able I spent 30 minutes in full attendance with this critically-ill patient. Time spent was exclusive ofseparately billed procedures, treating other patients, and teaching time. I have reviewed and agreewith resident documentation. Pt. is at high risk for complications and morbidity or mortality Pt. is critically ill with vital organ impairment or failure There is high probability of imminent or life threatening deterioration in the patient's condition Time involved in the performance of separately billable procedures, teaching, reviewing education material was not counted towards critical care time. Patient is unable or incompetent to participate in giving a history and/or making decisions and discussion is necessary for determining treatment decisions. Date of Service: 01/12/2023 Critical Care attending: Lisset Norris MD 01/12/2023 6:42 PM * John Aguero RN - 01/12/2023 11:34 AM CDT Care Coordination Progress Note Anticipated level of care at discharge: [facility] - Medicaid: Anticipated level of care provider: [facility] (formerly [facility] and [facility]): Anticipated Discharge Date: 01/14/23: Discharge Plan: Pending insurance authorization for [facility]. LASHON talked to Zarina clinical liasion for [facility] and she told CM that she is waiting for approval from insurance. Care team wasnotified. CM will continue to follow up. Orientation Level: Unable to Obtain: Family Support (Name and Phone): Extended Emergency Contact Information Primary Emergency Contact: Adriane Hilliard Mobile Relation: Sister Garage Manager needed? No Secondary Emergency Contact: Amarjit Tabor [facility] Relation: Brother Transportation at Discharge: Ambulance: READMISSION RISK SCORE is 28 at 11:34 AM 01/12/2023.: Name: John Aguero RN BSN education and training manager [phone] * Charles Regalado RCP - 01/12/2023 10:31 AM CDT Goal: Oral health is maintained or improved Outcome: Progressing Goal: Tracheostomy will be managed safely Outcome: Progressing Problem: Oxygenation/Respiratory Function Goal: Patent airway Outcome: Progressing Received patient on an 6 l/m 28% humidified trach collar. * Elmo Caicedo SLP - 01/12/2023 9:05 AM CDT [facility] Passy Lucius Valve Evaluation Patient: Mojgan Tabor Med Record Number: [id number] Date of :: 1960 Age: [age] year old In addition to the 1:1 evaluation of the patient, additional eval time was spent completing the chart review prior to the assessment, completing the multidisciplinary plan of care and education plan post evaluation and communicating results of the eval to other treatment team members. PPE: procedural mask, gloves Impressions: Patient assessed at bedside for PMV. Patient briefly tolerated finger occlusion of trach, but due to copious mucus/secretions and RR in the upper 30s, INTERIOR DESIGN CONSULTANT did not place PMV at this time. will plan on patient being able to regularly wear PMV before assessing swallow function. PMV Recommendations: Patient not yet appropriate for use of PMV;INTERIOR DESIGN CONSULTANT will continue to reassess Discharge Recommendations: TBD, due to acute medical status Speech therapy is recommended for further assessment of speech/language/cognition. Subjective: Mental Status: Lethargic Pain: Patient lethargic and unable to report pain at this time Objective: Tracheostomy Tube: Bivona 6 Breathing Status: trach collar- 6L/min Baseline spO2: 98% Phonation with finger occlusion: no Voice quality: Aphonic-if yes above Assessment: Patient briefly tolerated finger occlusion of trach, but due to copious mucus/secretions and patient being lethargic, did not place PMV at this time. Education: Patient and Nursing instructed in recommedations and indicated understanding. Goals: Short Term Goals: Patient to achieve phonation with Passy Lucius Valve while on tracheostomy. Long-Term Goal(s): Patient to be independent/baseline with speech/language/cognitive/swallowing to be able to safely discharge to prior level of care. If patient is discharged from the facility, this note serves as a discharge note if further speech therapy visits did not occur. Elmo Ansari M.A., [facility]-INTERIOR DESIGN CONSULTANT Speech Language Pathologist [phone] * J Carlos Ann RN - 01/11/2023 8:43 PM CDT Problem: Mechanical Ventilation Goal: Patent airway Outcome: Progressing Goal: Oral health is maintained or improved Outcome: Progressing Goal: Tracheostomy will be managed safely Outcome: Progressing Goal: Ability to express needs and understand communication Outcome: Progressing Goal: Mobility/activity is maintained at optimum level for patient Outcome: Progressing Problem: Oxygenation/Respiratory Function Goal: Patent airway Outcome: Progressing Goal: Respiratory rate/effort will be within specified limits Outcome: Progressing Problem: Care of Tracheostomy Goal: Tracheostomy tube and site will be maintained Outcome: Progressing Problem: Potential for Infection Goal: Insertion site without signs/symptoms of infection Outcome: Progressing Problem: Knowledge Deficit Goal: Patient/Significant other demonstrates understanding of Tracheostomy Outcome: Progressing Problem: Nutrient: Malnutrition Goal: Total intake will meet estimated nutrient needs Outcome: Progressing Problem: Skin Integrity Goal: Skin integrity is maintained or improved Outcome: Progressing Problem: Pain/Discomfort Goal: Patient exhibits reduced pain/discomfort as evidenced by pain scores Outcome: Progressing Goal: Patient uses pharmacological and non-pharmacological pain management strategies. Outcome: Progressing Goal: Patient verbalizes acceptable level of pain relief and ability to engage in desired activity. Outcome: Progressing Problem: Fall Risk Goal: Fall risk and fall related injury risk are minimized (interventions related to the fall risk can be found in the flowsheet documentation) Outcome: Progressing * Sondra Hansen DO - 01/11/2023 5:56 PM CDT Family Notification Documentation Contact made: 01/11/2023 5:30 PM Person(s) contacted: Adrianejosé miguel Hilliard Method of communication: Phone Phone number: [phone] Duration of discussion: 5 minutes Summary of discussion Adriane Hilliard was updated regarding patient tolerating the trach collar well and planning for discharge tomorrow, 01/12 to either [facility] or [facility]. * John Aguero RN - 01/11/2023 4:38 PM CDT Care Coordination Progress Note Anticipated level of care at discharge: [facility] - Medicaid: Anticipated level of care provider: [facility] (formerly [facility] and [facility]): Anticipated Discharge Date: 01/17/23 Discharge Plan:Pending patient's progress with medical treatment and care team recommendations. Pending ST, PT, OT evaluation when appropriate. CM was contacted by Sondra Hansen DO regarding discharge plan and told CM that today some one from [facility] contacted daughter Adriane regarding discharge plan to [facility]. CM talked to [facility] clinical liasion for [facility] and she told CM that she talked to patient's daughter Adriane today and daughter is interested in her dad's discharge to [facility]. Per [facility] insurance authorization have been started. Orientation Level: Oriented to Person: Family Support (Name and Phone): Extended Emergency Contact Information Primary Emergency Contact: Adriane Hilliard Mobile Relation: Sister Garage Manager needed? No Secondary Emergency Contact: Amarjit Tabor [facility] Relation: Brother Transportation at Discharge: Ambulance: READMISSION RISK SCORE is 29 at 4:38 PM 01/11/2023.: Name: John Aguero RN BSN education and training manager [phone] * Svetlana Leon OT - 01/11/2023 2:34 PM CDT [facility] Department of Physical Medicine & Rehabilitation Progress Note Patient: Mojgan Tabor Med Record Number: [id number] Date of : 1960 Age: [age] year old New OT orders received. Per chart review of previous admissions, pt is dependent at baseline for ADLs and mobility and no skilled intervention is indicated at this time. Will d/c from OT caseload. * Sondra Hansen DO - 01/11/2023 1:25 PM CDT MICU Progress Note 01/11/2023 1:25 PM Patient: Mojgan Tabor (:1960) Room: [facility] Admit Date: 12/31/2022. Hospital Day: 11 CC: Seizures Hospital Course: Mojgan Tabor is 62 year old male with history of epilepsy, chronic hypoxic respiratory failure (w/ trach), H/o multiple CVA's w/ residual deficits, PEG dependent, HTN, vascular dementia, alcohol use disorder. admitted on 12/31/2022 from OSH for continued seizures and concern for status epilepticus. ?? Initially admitted at [facility] on 12/18/22 for hypoxia and tachycardia. Found to have a RLLpneumonia. Sputum cultures were significant for Pseudomonas and Actinobacter resistant to multiple antibiotics. He completed a course of cefepime (EOT 12/25) and Bactrim (EOT 12/30) with improvement in leukocytosis and clinical symptoms. OSH initially planned to discharge on 12/28 however patient began having worsening seizures that were recurrent in nature. Home Clobazam was not on formulary at OSH. Neurology was consulted for concern of status epilepticus. Remainder of home Keppra 200mg BID, Valproate 750mg BID, and Lacosamide 200mg BID were continued. On 12/30 Neurology increased his Valproate to 750mg QID as patient continued to have recurrent seizures. He was transferred for higher level of care and continuous EEG given concern for subclinical seizures. ?? On presentation patient is unable to communicate given propofol drip. Per family he is normally A&Ox4. He has not had a seizure since last year until this previous admission per family. On admission VSS; satting well w/ FiO2 30%, PEEP 5. Trach and GJ tube in place; placement confirmed with radiology. Outside paredes exchanged. Initial ABG w/ pH 7.50, CO2 33, and O2 175. Repeat ABG following adju stment improved. w/ pH 7.44. Labs w/ K 4.8, Mg. 1.9, Phos 3.1, Lactate 1.6, WBC 6.8, Hg 10.3. Tropsnegative. CXR unremarkable; trach in proper position. KUB w/ well positioned GJ tube. In the MICU, neurology was consulted. Patient started on Propofol drip, hooked up to cEEG and restarted his home AEDs. EEG showed initially seizure like activity that with restarting of his meds, brain waves improved, significantly. Trach collar trial was performed 01/10. Pt tolerated the trial well. INTERIOR DESIGN CONSULTANT was consulted for swallow eval. Interval History: Overnight, the patient tolerated the trach collar trial well and had a good cough and was able to clear his secretions. INTERIOR DESIGN CONSULTANT has been consulted. The patient also had 2 bowel movements last night. [place] return to [facility] tomorrow. Objective: Vitals: 01/11/23 0900 01/11/23 1000 01/11/23 1100 01/11/23 1200 BP: 130/79 107/66 124/73 130/83 Pulse: 80 73 84 90 Resp: 18 10 Temp: 97.8 ??F (36.6 ??C) SpO2: 100% 100% 100% 100% Weight: Height: Intake/Output Summary (Last 24 hours) at 01/11/2023 1325 Last data filed at 01/11/2023 1200 Gross per 24 hour Intake 403 ml Output 1140 ml Net -737 ml -pt has trach collar Physical Exam General - NAD, afebrile, non cachectic HEENT - NC/AT, clear conjunctivae, moist mucous membranes Neck - Supple, no LAD, Trach in place to MV Chest - CTAB no crackles or wheezes bilaterally CV - RRR no murmurs, radial pulses 2/4 Abdomen - Soft, NT/ND, positive bowel sounds, GJ tube in place Extremities - No edema noted Skin - multiple lesions present on face Neurologic - able to follow commands Psych - Unable to assess ?? Labs: CBC: Recent Labs Component Name 01/11/2340801/10/238 01/09/23 0415 WBC 5.9 5.8 6.3 HGB 10.6* 9.6* 10.1* HCT 33.2* 29.6* 31.4* BMP: Recent Labs Component Name 01/11/2340801/10/238 01/09/23 0415 NA 141 141 140 CL 105 104 104 CO2 29 31* 30* BUN 16 18 20 CREATININE 0.40* 0.41* 0.38* CALCIUM 9.5 9.4 9.5 PHOS 2.4* 2.7* 2.3* Hepatic: Recent Labs Component Name 01/11/2340801/10/238 01/09/23 0415 ALT 7 8 10 AST 12 11 14 TBILI 0.2 0.3 0.2 PROT 6.5 6.4 6.8 ALB 2.5* 2.5* 2.6* ALKPHOS 79 75 83 Coagulation: Recent Labs Component Name 12/31/22205212/13/22 0146 12/09/22 1211 PT 13.7 13.3 14.3 INR 1.1 1.0 1.1 Micro: None Imaging: Imaging reviewed. Assessment: History of CVA (cerebrovascular accident) (POA: Yes) Hyperlipidemia (POA: Yes) Status epilepticus (CMS/HCC) (POA: Yes) Seizure disorder (CMS/HCC) (POA: Yes) Chronic respiratory failure with hypoxia (CMS/HCC) (POA: Yes) Dementia, vascular (CMS/HCC) (POA: Yes) PEG (percutaneous endoscopic gastrostomy) status (CMS/HCC) (POA: Yes) Tracheostomy in place (CMS/HCC) (POA: Yes) Anemia of chronic disease (POA: Yes) Acute encephalopathy (POA: Yes) PLAN: Neurological: RASS goal -1-0 #Focal Epilepsy #Concern for Status Epilepticus In setting of cefepime use and discontinuation of Clobazam and acute PNA at OSH Concern for subclinical seizures and status epilepticus given continued seizures at OSH despite treatment Episodes of facial twitching. Home regimen: Keppra 2000mg BID, Clobazam 20mg BID, Lacosamide 200mg BID, Valproate 500mg QID Elevated Trig (700s), but normal CK PLAN: - Neurology consulted - Off propofol, EEG shows no seizure activity, continue to observe - Continue home regimen as above. - If patient continues to seize, please call/page general neurology and discuss adding a second granite cutter - On seizure and fall precaution - valproate 500mg QID home dose -valproate total levels on 01/10: 57, free level of 16 ?? #Acute Encephalopathy #Vascular dementia Likely secondary to continued seizures, sedation and previously likely secondary to infection. Baseline A&Ox3 per family. Ammonia,TSH, wnl CT Head showed no acute findings PLAN: - Aspiration precaution Cardiovascular: MAP goal > 65 #Hypotension: resolved Weaned off of propofol S/p 500cc LR PLAN: -keep PICC line in place, multiple providers including anesthesia unable to place PIV, regular dressings changes for PICC line. ?? #HTN - home metoprolol 25mg BID ?? Pulmonary: SpO2 goal - 92% ?? #Chronic Hypoxic Respiratory Failure: improved - Trach collar in place, tolerated the trial well and had a good cough to clear secretions - VBG 01/11 pH 7.40, pCO2 50, pO2 79, and HCO3 31.0 #Aspiration Pneumonia- Resolved - S/p treatment for aspiration pneumonia as below ?? GI: #GJ tube dependence - KUB w/ evidence of proper placement - Tube feeds adjust daily to goal of 50mL ?? Renal: MARI, pt admitted to [facility] with chronic paredes that was exchanged on admission, keep in place atthis time ?? Endocrine: BGM goal 140-180 mg/dL ?? ID: #Aspiration Pneumonia- Resolved - Initially Hypoxic and tachycardic; CT Chest w/ consolidation of R lung and small pleural effusion. - Cultures at OSH w/ Pseudomonas and Acinetobacter resistant to multiple antibiotics - S/p treatment course w/ cefepime (EOT 12/25) and bactrim (EOT 12/30) - Afebrile on admission; no leukocytosis - CXR w/ no evidence of persistent consolidation. ?? Heme/Onc: #Anemia - Iron studies: ferritin of 55, folate 14.7, iron of 53, TIBC of 319, transferrin of 255 - Vit B12??: 1813 -MCV of 96.1 -CTM with CBC FEN: -Monitor electrolytes QD, Replace K<4, Mg<2, Phos<3 ?? #Hyponatremia Volume down vs SIADH vs Adrenal Insufficiency S/p 500cc LR PLAN: - AM cortisol blood wnl -CTM #Hypokalemia #Hypophospotemia: -K of 3.3 -Phos of 2.4 PLAN: -repleted with K Phos powder TID with meals -CTM Lines: PICC, Trach, Paredes, GJ tube Prophylaxis: Aspiration precautions w/ HOB elevation by 30 degrees GI prophyalxis w/ protonix DVT prophyalxis w/ SCDs, Lovenox Diet: NPO, TF Activity: Bed Rest Disposition: LTACH; likely discharge 01/12 to [facility] Code Status: Full Sondra Hansen DO Associated attestation - Lisset Norris MD - 01/11/2023 6:03 PM CDT Medical ICU Attending Note I have seen and examined the patient with the resident/fellow. I agree with the resident/fellow note except for the following additions/corrections. In brief, Mojgan Tabor is a 62 year old male with h/o ETOH D/O, HTN, vascular dementia, CVAs with residua, chronic hypoxic respiratory failure with trach, PEG, h/o epilepsy admitted to the ICU from OSH for concern for status epilepticus and PNA. Restarted on home AEDS and EEG showed seizure like activity that stopped with restarting AEDs ON: Following commands, tolerated TC ON with reasonable blood gas this AM. Data: I have personally reviewed the pertient labs and imaging. History of CVA (cerebrovascular accident) (POA: Yes) Hyperlipidemia (POA: Yes) Status epilepticus (CMS/HCC) (POA: Yes) Seizure disorder (CMS/HCC) (POA: Yes) Chronic respiratory failure with hypoxia (CMS/HCC) (POA: Yes) Dementia, vascular (CMS/HCC) (POA: Yes) PEG (percutaneous endoscopic gastrostomy) status (CMS/HCC) (POA: Yes) Tracheostomy in place (CMS/HCC) (POA: Yes) Anemia of chronic disease (POA: Yes) Acute encephalopathy (POA: Yes) Critical care was necessary to treat or prevent life-threatening deterioration of the following: Status epilepticus - resolved, acute encephalopathy - improving, hypotension - resolved, Acute on chronic hypoxic respiratory - improving, aspiration PNA - resolved, hyponatremia The plan of care consists of: Continue TC weaning oxygen as able, continue AEDs, monitor for seizures, CTM electrolytes, continue TF, LTAC placement when able I spent 30 minutes in full attendance with this critically-ill patient. Time spent was exclusive ofseparately billed procedures, treating other patients, and teaching time. I have reviewed and agreewith resident documentation. Pt. is at high risk for complications and morbidity or mortality Pt. is critically ill with vital organ impairment or failure There is high probability of imminent or life threatening deterioration in the patient's condition Time involved in the performance of separately billable procedures, teaching, reviewing education material was not counted towards critical care time. Patient is unable or incompetent to participate in giving a history and/or making decisions and discussion is necessary for determining treatment decisions. Date of Service: 01/11/2023 Critical Care attending: Lisset Norris MD 01/11/2023 6:00 PM * Trista Flowers RN - 01/11/2023 12:22 PM CDT Problem: Mechanical Ventilation Goal: Patent airway Outcome: Progressing Problem: Oxygenation/Respiratory Function Goal: Patent airway Outcome: Progressing Problem: Skin Integrity Goal: Skin integrity is maintained or improved Outcome: Progressing * Trista Chatterjee PT - 01/11/2023 11:52 AM CDT [facility] Department of Physical Medicine & Rehabilitation Progress Note Patient: Mojgan [facility]abor [facility] Record Number: [id number] Date of : 1960 Age: [age] year old New PT orders received. Per chart review of previous admissions, pt is dependent at baseline for ADLs and mobility and no skilled intervention is indicated at this time. Will d/c from caseload. * Rony Quijano - 01/10/2023 10:49 PM CDT Problem: Mechanical Ventilation Goal: Patent airway Outcome: Progressing Goal: Oral health is maintained or improved Outcome: Progressing Goal: Tracheostomy will be managed safely Outcome: Progressing Goal: ET tube will be managed safely Outcome: Completed Goal: Ability to express needs and understand communication Outcome: Progressing Goal: Mobility/activity is maintained at optimum level for patient Outcome: Progressing Problem: Oxygenation/Respiratory Function Goal: Patent airway Outcome: Progressing Goal: Respiratory rate/effort will be within specified limits Outcome: Progressing Problem: Care of Tracheostomy Goal: Tracheostomy tube and site will be maintained Outcome: Progressing Problem: Potential for Infection Goal: Insertion site without signs/symptoms of infection Outcome: Progressing Problem: Knowledge Deficit Goal: Patient/Significant other demonstrates understanding of Tracheostomy Outcome: Progressing Problem: Nutrient: Malnutrition Goal: Total intake will meet estimated nutrient needs Outcome: Progressing Problem: Skin Integrity Goal: Skin integrity is maintained or improved Outcome: Progressing Problem: Pain/Discomfort Goal: Patient exhibits reduced pain/discomfort as evidenced by pain scores Outcome: Progressing Goal: Patient uses pharmacological and non-pharmacological pain management strategies. Outcome: Progressing Goal: Patient verbalizes acceptable level of pain relief and ability to engage in desired activity. Outcome: Progressing Problem: Fall Risk Goal: Fall risk and fall related injury risk are minimized (interventions related to the fall risk can be found in the flowsheet documentation) Outcome: Progressing * Yana Martinez RCP - 01/10/2023 8:29 PM CDT Problem: Mechanical Ventilation Goal: Patent airway Outcome: Progressing Goal: Oral health is maintained or improved Outcome: Progressing Goal: Tracheostomy will be managed safely Outcome: Progressing Problem: Oxygenation/Respiratory Function Goal: Patent airway Outcome: Progressing Received patient on an 8 l/m 30% humidified trach collar with the ventilator on standby. If placed back on the ventilator, will wean ventilator settings as ordered by the physician and tolerated by the patient. * John Augero RN - 01/10/2023 3:39 PM CDT Care Coordination Progress Note Anticipated level of care at discharge: [facility] - Medicaid: Anticipated level of care provider: [facility] (formerly [facility] and [facility]): Anticipated Discharge Date: 01/14/23: Discharge Plan:Pending patient's progress with medical treatment and care team recommendations. Pending ST, PT, OT evaluation when appropriate. CM talked to patient's sister Adriane Hilliard who is POA And she told CM that she wants his brother to go back to [facility] at discharge. SW and Care team was notified. Orientation Level: Oriented to Person: Family Support (Name and Phone): Extended Emergency Contact Information Primary Emergency Contact: Adriane Hilliard Mobile Relation: Sister Garage Manager needed? No Secondary Emergency Contact: GastonAmarjit [facility] Relation: Brother Transportation at Discharge: Ambulance: READMISSION RISK SCORE is 29 at 3:40 PM 01/10/2023.: Name: John Aguero RN BSN education and training manager [phone] * Sondra Hansen DO - 01/10/2023 2:41 PM CDT MICU Progress Note 01/10/2023 2:41 PM Patient: Mojgan Tabor (:1960) Room: [facility] Admit Date: 12/31/2022. Hospital Day: 10 CC: Seizures Hospital Course: Mojgan Tabor is 62 year old male with history of epilepsy, chronic hypoxic respiratory failure (w/ trach), H/o multiple CVA's w/ residual deficits, PEG dependent, HTN, vascular dementia, alcohol use disorder. admitted on 12/31/2022 from OSH for continued seizures and concern for status epilepticus. ?? Initially admitted at [facility] on 12/18/22 for hypoxia and tachycardia. Found to have a RLLpneumonia. Sputum cultures were significant for Pseudomonas and Actinobacter resistant to multiple antibiotics. He completed a course of cefepime (EOT 12/25) and Bactrim (EOT 12/30) with improvement in leukocytosis and clinical symptoms. OSH initially planned to discharge on 12/28 however patient began having worsening seizures that were recurrent in nature. Home Clobazam was not on formulary at OSH. Neurology was consulted for concern of status epilepticus. Remainder of home Keppra 200mg BID, Valproate 750mg BID, and Lacosamide 200mg BID were continued. On 12/30 Neurology increased his Valproate to 750mg QID as patient continued to have recurrent seizures. He was transferred for higher level of care and continuous EEG given concern for subclinical seizures. ?? On presentation patient is unable to communicate given propofol drip. Per family he is normally A&Ox4. He has not had a seizure since last year until this previous admission per family. On admission VSS; satting well w/ FiO2 30%, PEEP 5. Trach and GJ tube in place; placement confirmed with radiology. Outside paredes exchanged. Initial ABG w/ pH 7.50, CO2 33, and O2 175. Repeat ABG following adju stment improved. w/ pH 7.44. Labs w/ K 4.8, Mg. 1.9, Phos 3.1, Lactate 1.6, WBC 6.8, Hg 10.3. Tropsnegative. CXR unremarkable; trach in proper position. KUB w/ well positioned GJ tube. In the MICU, neurology was consulted. Patient started on Propofol drip, hooked up to cEEG and restarted his home AEDs. EEG showed initially seizure like activity that with restarting of his meds, brain waves improved, significantly. Trach collar trial was performed 01/10. Interval History: Overnight, patient's vent settings were changed to SCMV 8, Tidal volume 500, PEEP 5, and FiO2 25%. Patient was able to follow some commands. Trach collar trial planned for today. Objective: Vitals: 01/10/23 1200 01/10/23 1201 01/10/23 1300 01/10/23 1400 BP: 119/72 117/69 132/75 Pulse: 76 73 78 79 Resp: 18 Temp: 97.6 ??F (36.4 ??C) SpO2: 98% 97% 99% 100% Weight: Height: Intake/Output Summary (Last 24 hours) at 01/10/2023 1441 Last data filed at 01/10/2023 1400 Gross per 24 hour Intake 873 ml Output 457 ml Net 416 ml -spontaneous on vent PEEP/CPAP: 5 cm H20 Mean Airway Pressure (cm H2O): 10 cm H2O O2 %: 25 % Physical Exam General - NAD, afebrile, non cachectic HEENT - NC/AT, clear conjunctivae, moist mucous membranes Neck - Supple, no LAD, Trach in place to MV Chest - CTAB no crackles or wheezes bilaterally CV - RRR no murmurs, radial pulses 2/4 Abdomen - Soft, NT/ND, positive bowel sounds, GJ tube in place. Extremities - No edema noted Skin - multiple lesions present on face, lotion and vaseline applied Neurologic - able to follow some commands Psych - Unable to assess ?? Labs: CBC: Recent Labs Component Name 01/10/2334701/09/23 0415 01/08/23 0350 WBC 5.8 6.3 5.7 HGB 9.6* 10.1* 10.2* HCT 29.6* 31.4* 31.5* BMP: Recent Labs Component Name 01/10/2334701/09/23 0415 01/08/23 0350 NA 141 140 141 CL 104 104 105 CO2 31* 30* 28 BUN 18 20 19 CREATININE 0.41* 0.38* 0.42* CALCIUM 9.4 9.5 9.3 PHOS 2.7* 2.3* 2.5* Hepatic: Recent Labs Component Name 01/10/2334701/09/23 0415 01/08/23 0350 ALT 8 10 9 AST 11 14 15 TBILI 0.3 0.2 0.2 PROT 6.4 6.8 6.8 ALB 2.5* 2.6* 2.6* ALKPHOS 75 83 82 Coagulation: Recent Labs Component Name 12/31/22205212/13/22 0146 12/09/22 1211 PT 13.7 13.3 14.3 INR 1.1 1.0 1.1 Micro: None Imaging: Imaging reviewed. Assessment: History of CVA (cerebrovascular accident) (POA: Yes) Hyperlipidemia (POA: Yes) Status epilepticus (CMS/HCC) (POA: Yes) Seizure disorder (CMS/HCC) (POA: Yes) Chronic respiratory failure with hypoxia (CMS/HCC) (POA: Yes) Dementia, vascular (CMS/HCC) (POA: Yes) PEG (percutaneous endoscopic gastrostomy) status (CMS/HCC) (POA: Yes) Tracheostomy in place (CMS/HCC) (POA: Yes) Anemia of chronic disease (POA: Yes) Acute encephalopathy (POA: Yes) PLAN: Neurological: RASS goal -1-0 #Focal Epilepsy #Concern for Status Epilepticus In setting of cefepime use and discontinuation of Clobazam and acute PNA at OSH Concern for subclinical seizures and status epilepticus given continued seizures at OSH despite treatment Episodes of facial twitching. Home regimen: Keppra 2000mg BID, Clobazam 20mg BID, Lacosamide 200mg BID, Valproate 500mg QID Elevated Trig (700s), but normal CK PLAN: - Neurology consulted - Off propofol, EEG shows no seizure activity, continue to observe - Continue home regimen as above. - If patient continues to seize, please call/page general neurology and discuss adding a second granite cutter - On seizure and fall precaution - valproate 500mg QID home dose -valproate total levels on 01/10: 57, free level of 16 ?? #Acute Encephalopathy #Vascular dementia Likely secondary to continued seizures, sedation and previously likely secondary to infection. Baseline A&Ox3 per family. Ammonia,TSH, wnl CT Head showed no acute findings PLAN: - Aspiration precaution Cardiovascular: MAP goal > 65 #Hypotension: resolved Weaned off of propofol S/p 500cc LR PLAN: -keep PICC line in place, multiple providers including anesthesia unable to place PIV, regular dressings changes for PICC line. ?? #HTN - home metoprolol 25mg BID ?? Pulmonary: SpO2 goal - 92% ?? #Chronic Hypoxic Respiratory Failure - Trach dependent on SMCV - AB.46, pCO2 34, and HCO3 25.9 - trach collar trial today ??-on spontaneous vent 03/08 25% FiO2, tolerating well #Aspiration Pneumonia- Resolved - S/p treatment for aspiration pneumonia as below ?? GI: #GJ tube dependence - KUB w/ evidence of proper placement - Tube feeds adjust daily to goal of 50mL ?? Renal: MARI, pt admitted to [facility] with chronic paredes that was exchanged on admission, keep in place atthis time ?? Endocrine: BGM goal 140-180 mg/dL ?? ID: #Aspiration Pneumonia- Resolved - Initially Hypoxic and tachycardic; CT Chest w/ consolidation of R lung and small pleural effusion. - Cultures at OSH w/ Pseudomonas and Acinetobacter resistant to multiple antibiotics - S/p treatment course w/ cefepime (EOT 12/25) and bactrim (EOT 12/30) - Afebrile on admission; no leukocytosis - CXR w/ no evidence of persistent consolidation. ?? Heme/Onc: #Anemia - Iron studies: ferritin of 55, folate 14.7, iron of 53, TIBC of 319, transferrin of 255 - Vit B12??: 1813 -MCV of 96.1 FEN: -Monitor electrolytes QD, Replace K<4, Mg<2, Phos<3 ?? #Hyponatremia Volume down vs SIADH vs Adrenal Insufficiency S/p 500cc LR PLAN: - AM cortisol blood wnl -CTM Lines: PICC, Trach, Paredes, GJ tube Prophylaxis: Aspiration precautions w/ HOB elevation by 30 degrees GI prophyalxis w/ protonix DVT prophyalxis w/ SCDs, Lovenox Diet: NPO, TF Activity: Bed Rest Disposition: LTACH-referrals sent Code Status: Full Sondra Hansen DO Associated attestation - Lisset Norris MD - 01/10/2023 7:27 PM CDT Medical ICU Attending Note I have seen and examined the patient with the resident/fellow. I agree with the resident/fellow note except for the following additions/corrections. In brief, Mojgan Tabor is a 62 year old male with h/o ETOH D/O, HTN, vascular dementia, CVAs with residua, chronic hypoxic respiratory failure with trach, PEG, h/o epilepsy admitted to the ICU from OSH for concern for status epilepticus and PNA. Restarted on home AEDS and EEG showed seizure like activity that stopped with restarting AEDs ON: Following commands, tolerated TC trial Data: I have personally reviewed the pertient labs and imaging. History of CVA (cerebrovascular accident) (POA: Yes) Hyperlipidemia (POA: Yes) Status epilepticus (CMS/HCC) (POA: Yes) Seizure disorder (CMS/HCC) (POA: Yes) Chronic respiratory failure with hypoxia (CMS/HCC) (POA: Yes) Dementia, vascular (CMS/HCC) (POA: Yes) PEG (percutaneous endoscopic gastrostomy) status (CMS/HCC) (POA: Yes) Tracheostomy in place (CMS/HCC) (POA: Yes) Anemia of chronic disease (POA: Yes) Acute encephalopathy (POA: Yes) Critical care was necessary to treat or prevent life-threatening deterioration of the following: Status epilepticus - resolved, acute encephalopathy - improving, hypotension - resolved, Acute on chronic hypoxic respiratory - improving, aspiration PNA - resolved, hyponatremia The plan of care consists of: Continue lung protective ventilation and TC trial weaning as able, continue AEDs, monitor for seizures, CTM electrolytes, LTAC placement when able I spent 35 minutes in full attendance with this critically-ill patient. Time spent was exclusive ofseparately billed procedures, treating other patients, and teaching time. I have reviewed and agreewith resident documentation. Pt. is at high risk for complications and morbidity or mortality Pt. is critically ill with vital organ impairment or failure There is high probability of imminent or life threatening deterioration in the patient's condition Time involved in the performance of separately billable procedures, teaching, reviewing education material was not counted towards critical care time. Patient is unable or incompetent to participate in giving a history and/or making decisions and discussion is necessary for determining treatment decisions. Date of Service: 01/10/2023 Critical Care attending: Lisset Norris MD 01/10/2023 7:21 PM * Mely Layne, MINH/ONI - 01/10/2023 10:45 AM CDT Clinical Nutrition Assessment Brief Synopsis: Patient is diagnosed with severe malnutrition; Specific criteria can be found in assessment below Nutrition Plan: Vital AF 1.2 Bruno at goal of 50 ml/hr. Provides 1440 kcal, 90 g protein, 133 g carbohydrate, and 973 ml free water +50 ml q 6 hrs free water flush or per MD if on IVF +100 ml q4 hrs free water flush or per MD if not on additional fluids Recommendations to Physician: Monitor lytes and replete if indicated Comments: Pt scheduled for reassessment. Pt continues to be intubated and receiving continuous TF of Vital AF at 50 ml/hr via J tube. Last BM 01/09. Phos 2.7. RD will continue to monitor. Assessment: Med/Surg History and Clinical Diagnoses: history of epilepsy, chronic hypoxic respiratory failure s/p trach and PEG, multiple CVA's with residual deficits, HTN, and vascular dementia who was transferred from OSH for status epilepticus Height: 177.8 cm (5' 10 ) Weight: 70.3 kg (155 lb) BMI: Body mass index is 22.24 kg/m??. BMI Range: Normal IBW/lb (Calculated) Male: 166 , Recent Weights/Methods 01/01/2023 0334 01/04/2023 0400 01/05/2023 0357 01/06/2023 0400 01/07/2023 0400 01/08/2023 0546 01/09/2023 0343 01/10/2023 0400 Weight: 59.6 kg (131 lb 6.3 oz) 57.3 kg (126 lb 6.4 oz) 65.8 kg (145 lb) 70.3 kg (155 lb) 69.9 kg (154 lb 3.2 oz) 70.3 kg (154 lb 15.7 oz) 70.3 kg (155 lb) 70.3 kg (155 lb) Weight Method (Utilize Scales): Bed[facility] -- -- -- Wt Comments: monitoring Diet order accuracy Current diet order: NPO Current tube feeding order: vital AF 50 ml/hr Nutrition recommendation: agree with current nutrition order P.O.Intake for the past 48 hrs: No data recorded Supplement(s) Consumed- Last 48 hours None Food Allergies: No known food allergies Chewing/Swallowing: (vent) Pain affecting intake: No Estimated Needs: KCAL: 3916-8187 (20-25kcal/kg (ABW)) Protein (g): 90g (1.5g/kg (ABW)) Fluid (ml): 1 ml/kcal Needs based on: Kcal/kg- (Comment) (ABW 59.6kg) Recommended Access Route: TF Malnutrition Etiology: Malnutrition in the context of: chronic disease, Malnutrition Severity: Severe Protein Calorie BMI: Body mass index is 22.24 kg/m??. GI Concerns: (J-tube) Nutrition Focused Physical Assessment: Loss of Subcutaneous Fat Orbital: Severe Buccal: Severe Muscle Loss Temples (Temporalis Muscle): Severe Clavicles (Pectoralis & Deltoids): Severe Shoulders (Deltoids): Severe Thigh (Quadriceps): Severe Pertinent Nutrition Labs: Recent Labs Component Name 01/10/23 0348 01/09/23 0415 01/08/23 0350 BUN 18 20 19 CREATININE 0.41* 0.38* 0.42* NA 141 140 141 POTASSIUM 3.6 3.6 3.4* CL 104 104 105 CO2 31* 30* 28 GLUCOSE 92 110 109 CALCIUM 9.4 9.5 9.3 PROT 6.4 6.8 6.8 ALB 2.5* 2.6* 2.6* TBILI 0.3 0.2 0.2 ALKPHOS 75 83 82 ALT 8 10 9 AST 11 14 15 ANIONGAP 10 10 11 BCR 44* >50* 45* OSMOLALITY 294 293 295 AGRATIO 0.6* 0.6* 0.6* EGFR >90 >90 >90 Pertinent Nutrition Medications: Current Facility-Administered Medications Medication ??? 0.9% NaCl injection 3 mL And ??? 0.9% NaCl injection 1-10 mL ??? artificial tears ophthalmic ointment ??? aspirin chew tablet 81 mg ??? chlorhexidine (Peridex) 0.12 % oral solution 15 mL ??? cloBAZam (Onfi) tablet 20 mg ??? enoxaparin (Lovenox) injection 40 mg ??? lacosamide (Vimpat) tablet 200 mg ??? levETIRAcetam (Keppra) tablet 2,000 mg ??? metoprolol tartrate IR (Lopressor) tablet 25 mg ??? pantoprazole (Protonix) injection 40 mg ??? triamcinolone acetonide (Kenalog) 0.025 % ointment ??? valproic acid (Depakene) solution 500 mg Skin/Wound: NWL Education needed: None Nutrition Care Process (1) Nutrition Diagnostic Statement: Malnutrition severity: : Severe related to:: increased nutrient needs due to illness;alteration in gastrointestinal tract structureor function as evidenced by:: BMI less than 19 Nutrition Diagnostic Statement Progress: Nutrition problem continues Nutrition Intervention: Enteral nutrition: Monitoring: TF, BM, labs, meds, weight Evaluation: Nutrition Goal: Total intake will meet estimated nutrient needs Nutrition Goal Timeframe: Throughout stay Nutrition Goal Progress: Continue with current goal Mely Layne RD/MARQUISE, LD Ascom: [id number] * Caio Oliveira - 01/10/2023 10:14 AM CDT Nenita ([facility] [phone]) requested call back from Manufacturing Engineering Manager to discuss patient's potential admission. CLARITA Rico, PRACHI [facility] 01/10/2023 10:15 AM * Trista Flowers RN - 01/10/2023 8:53 AM CDT Problem: Mechanical Ventilation Goal: Patent airway Outcome: Progressing Problem: Oxygenation/Respiratory Function Goal: Patent airway Outcome: Progressing Problem: Nutrient: Malnutrition Goal: Total intake will meet estimated nutrient needs Outcome: Progressing * Yana Martinez RCP - 01/09/2023 11:38 PM CDT Problem: Mechanical Ventilation Goal: Patent airway Outcome: Progressing Goal: Oral health is maintained or improved Outcome: Progressing Goal: Tracheostomy will be managed safely Outcome: Progressing Problem: Oxygenation/Respiratory Function Goal: Patent airway Outcome: Progressing Received patient on s-cmv mode on ventilator. Will wean ventilator settings as ordered by the physician and tolerated by the patient. * Blair Boo RN - 01/09/2023 8:34 PM CDT Problem: Mechanical Ventilation Goal: Patent airway Outcome: Progressing Goal: Oral health is maintained or improved Outcome: Progressing Goal: Tracheostomy will be managed safely Outcome: Progressing Goal: ET tube will be managed safely Outcome: Progressing Goal: Ability to express needs and understand communication Outcome: Progressing Goal: Mobility/activity is maintained at optimum level for patient Outcome: Progressing Problem: Care of Tracheostomy Goal: Tracheostomy tube and site will be maintained Outcome: Progressing Problem: Knowledge Deficit Goal: Patient/Significant other demonstrates understanding of Tracheostomy Outcome: Progressing * Mariella Villela RCP - 01/09/2023 6:05 PM CDT Problem: Mechanical Ventilation Goal: Patent airway Outcome: Progressing Goal: Oral health is maintained or improved Outcome: Progressing Goal: Tracheostomy will be managed safely Outcome: Progressing Goal: Ability to express needs and understand communication Outcome: Progressing Goal: Mobility/activity is maintained at optimum level for patient Outcome: Progressing * Rickie aSlas MD - 01/09/2023 4:29 PM CDT MICU Progress Note 01/09/2023 4:29 PM Patient: Mojgan Tabor (:1960) Room: [facility] Admit Date: 12/31/2022. Hospital Day: 9 CC: Seizures Hospital Course: Mojgan Tabor is 62 year old male with history of epilepsy, chronic hypoxic respiratory failure (w/ trach), H/o multiple CVA's w/ residual deficits, PEG dependent, HTN, vascular dementia, alcohol use disorder. admitted on 12/31/2022 from OSH for continued seizures and concern for status epilepticus. ?? Initially admitted at [facility] on 12/18/22 for hypoxia and tachycardia. Found to have a RLLpneumonia. Sputum cultures were significant for Pseudomonas and Actinobacter resistant to multiple antibiotics. He completed a course of cefepime (EOT 12/25) and Bactrim (EOT 12/30) with improvement in leukocytosis and clinical symptoms. OSH initially planned to discharge on 12/28 however patient began having worsening seizures that were recurrent in nature. Home Clobazam was not on formulary at OSH. Neurology was consulted for concern of status epilepticus. Remainder of home Keppra 200mg BID, Valproate 750mg BID, and Lacosamide 200mg BID were continued. On 12/30 Neurology increased his Valproate to 750mg QID as patient continued to have recurrent seizures. He was transferred for higher level of care and continuous EEG given concern for subclinical seizures. ?? On presentation patient is unable to communicate given propofol drip. Per family he is normally A&Ox4. He has not had a seizure since last year until this previous admission per family. On admission VSS; satting well w/ FiO2 30%, PEEP 5. Trach and GJ tube in place; placement confirmed with radiology. Outside paredes exchanged. Initial ABG w/ pH 7.50, CO2 33, and O2 175. Repeat ABG following adju stment improved. w/ pH 7.44. Labs w/ K 4.8, Mg. 1.9, Phos 3.1, Lactate 1.6, WBC 6.8, Hg 10.3. Tropsnegative. CXR unremarkable; trach in proper position. KUB w/ well positioned GJ tube. In the MICU, neurology was consulted. Patient started on Propofol drip, hooked up to cEEG and restarted his home AEDs. EEG showed initially seizure like activity that with restarting of his meds, brain waves improved, significantly. Interval History: Patient opening eyes spontaneously. Pt AFVSS, off levo since 6PM 01/02. Pt stable off pressors and sedation, referrals sent by social work for LTACH placement. Objective: Vitals: 01/09/23 1300 01/09/23 1316 01/09/23 1400 01/09/23 1500 BP: 107/72 123/72 Pulse: 79 73 75 71 Resp: 9 16 21 22 Temp: 97.9 ??F (36.6 ??C) SpO2: 96% 96% 96% Weight: Height: Intake/Output Summary (Last 24 hours) at 01/09/2023 1629 Last data filed at 01/09/2023 1336 Gross per 24 hour Intake 710 ml Output 770 ml Net -60 ml -spontaneous on vent PEEP/CPAP: 5 cm H20 Mean Airway Pressure (cm H2O): 10 cm H2O O2 %: 25 % Physical Exam General - NAD, afebrile, non cachectic HEENT - NC/AT, clear conjunctivae, moist mucous membranes Neck - Supple, no LAD, no JVD, Trach in place to MV Chest - CTAB no crackles or wheezes bilaterally. CV - RRR no murmurs, radial and DP pulses 2/4, good capillary refill Abdomen - Soft, NT/ND, +BS, no organomegaly. GJ tube in place. No surrounding erythema. Extremities - No edema or injury. Skin - multiple lesions present on face, lotion and vaseline applied Neurologic - able to follow some commands Psych - Unable to assess ?? Labs: CBC: Recent Labs Component Name 01/09/2341401/08/23 0350 01/07/23424 WBC 6.3 5.7 6.7 HGB 10.1* 10.2* 10.0* HCT 31.4* 31.5* 30.1* BMP: Recent Labs Component Name 01/09/2341401/08/23 0350 01/07/23 042 NA 140 141 140 CL 104 105 105 CO2 30* 28 28 BUN 20 19 19 CREATININE 0.38* 0.42* 0.43* CALCIUM 9.5 9.3 9.2 PHOS 2.3* 2.5* 2.5* Hepatic: Recent Labs Component Name 01/09/2341401/08/23 0350 01/07/23 0425 ALT 10 9 11 AST 14 15 14 TBILI 0.2 0.2 0.2 PROT 6.8 6.8 6.7 ALB 2.6* 2.6* 2.6* ALKPHOS 83 82 86 Coagulation: Recent Labs Component Name 12/31/22205212/13/22 0146 12/09/22 1211 PT 13.7 13.3 14.3 INR 1.1 1.0 1.1 Micro: None Imaging: Imaging reviewed. Assessment: Pt making mild improvements each day, will attempt to wean off mechanical ventilation as mental status continues to improve. Pt off all sedation and pressors, HDS with trach in place. History of CVA (cerebrovascular accident) (POA: Yes) Hyperlipidemia (POA: Yes) Status epilepticus (CMS/HCC) (POA: Yes) Seizure disorder (CMS/HCC) (POA: Yes) Chronic respiratory failure with hypoxia (CMS/HCC) (POA: Yes) Dementia, vascular (CMS/HCC) (POA: Yes) PEG (percutaneous endoscopic gastrostomy) status (CMS/HCC) (POA: Yes) Tracheostomy in place (CMS/HCC) (POA: Yes) Anemia of chronic disease (POA: Yes) Acute encephalopathy (POA: Yes) PLAN: Neurological: RASS goal -1-0 #Focal Epilepsy #Status Epilepticus? In setting of cefepime use and discontinuation of Clobazam and acute PNA at OSH Concern for subclinical seizures and status epilepticus given continued seizures at OSH despite treatment Episodes of facial twitching. Home regimen: Keppra 2000mg BID, Clobazam 20mg BID, Lacosamide 200mg BID, Valproate 750mg BID (never increased to QID from OSH, pending neuro recs for this discrepancy) Valproate wnl Elevated Trig (700s), but normal CK PLAN: - Neurology consulted - Off propofol, EEG shows no seizure activity, continue to observe - Continue home regimen as above. - D' C cEEG per neuro - If patient continues to seize, please call/page general neurology and discuss adding a second granite cutter - On seizure and fall precaution - valproate 500mg QID home dose -valproate levels on 01/10 ?? #Acute Encephalopathy #Vascular dementia Likely secondary to continued seizures, sedation and previously likely secondary to infection. Baseline A&Ox3 per family. Ammonia,TSH, wnl CT Head showed no acute findings PLAN: - Aspiration precaution Cardiovascular: MAP goal > 65 #Hypotension Likely 2/2 propofol, weaning today S/p 500cc LR PLAN: -keep PICC line in place, multiple providers including anesthesia unable to place PIV, regular dressings changes for PICC line. ?? #HTN - home metoprolol 25mg BID ?? Pulmonary: SpO2 goal - 92% ?? #Chronic Hypoxic Respiratory Failure - Trach dependent on SMCV - Initial ABG w/ pH 7.50; improved to 7.44 following adjustments - CXR w/ stable trach placement. -5/5 pressure support, if pt tolerates, consider trach collar trial for 4 hours at most. ??-on spontaneous vent 10/10 25% FiO2, tolerating well #Aspiration Pneumonia- Resolved - S/p treatment for aspiration pneumonia as below ?? GI: #GJ tube dependence - KUB w/ evidence of proper placement - Tube feeds adjust daily to goal of 50mL ?? Renal: MARI, pt admitted to [facility] with chronic paredes that was exchanged on admission, keep in place atthis time ?? Endocrine: BGM goal 140-180 mg/dL ?? ID: #Aspiration Pneumonia- Resolved - Initially Hypoxic and tachycardic; CT Chest w/ consolidation of R lung and small pleural effusion. - Cultures at OSH w/ Pseudomonas and Acinetobacter resistant to multiple antibiotics - S/p treatment course w/ cefepime (EOT 12/25) and bactrim (EOT 12/30) - Afebrile on admission; no leukocytosis - CXR w/ no evidence of persistent consolidation. ?? Heme/Onc: #Anemia - Iron studies ordered - Vit B12?? FEN: -Monitor electrolytes QD, Replace K<4, Mg<2, Phos<3 ?? #Hyponatremia Volume down vs SIADH vs Adrenal Insufficiency S/p 500cc LR PLAN: - AM cortisol blood wnl Lines: PICC, Trach, [place], GJ tube Prophylaxis: Aspiration precautions w/ HOB elevation by 30 degrees GI prophyalxis w/ protonix DVT prophyalxis w/ SCDs, Lovenox Diet: NPO, TF Activity: Best Rest Disposition: LTACH-referrals sent Code Status: Full Rickie Salas MD Associated attestation - Ck Small MD - 01/09/2023 7:20 PM CDT I have seen and examined the patient with the resident and I agree with the findings and plan of care as documented by the resident. Date of Service: 01/09/2023 Ck Small MD * Blair Boo RN - 01/08/2023 9:50 PM CDT Problem: Mechanical Ventilation Goal: Patent airway Outcome: Progressing Goal: Oral health is maintained or improved Outcome: Progressing Goal: Tracheostomy will be managed safely Outcome: Progressing Goal: ET tube will be managed safely Outcome: Progressing Goal: Ability to express needs and understand communication Outcome: Progressing Problem: Oxygenation/Respiratory Function Goal: Patent airway Outcome: Progressing Problem: Care of Tracheostomy Goal: Tracheostomy tube and site will be maintained Outcome: Progressing Problem: Potential for Infection Goal: Insertion site without signs/symptoms of infection Outcome: Progressing Problem: Knowledge Deficit Goal: Patient/Significant other demonstrates understanding of Tracheostomy Outcome: Progressing Problem: Pain/Discomfort Goal: Patient exhibits reduced pain/discomfort as evidenced by pain scores Outcome: Progressing * Yana Martinez RCP - 01/08/2023 8:13 PM CDT Problem: Mechanical Ventilation Goal: Patent airway Outcome: Progressing Goal: Oral health is maintained or improved Outcome: Progressing Goal: Tracheostomy will be managed safely Outcome: Progressing Problem: Oxygenation/Respiratory Function Goal: Patent airway Outcome: Progressing Received patient on psv mode on ventilator. Will wean ventilator settings as ordered by the physician and tolerated by the patient. * Rickie Salas MD - 01/08/2023 2:10 PM CDT MICU Progress Note 01/08/2023 2:10 PM Patient: Mojgan Tabor (:1960) Room: [facility] Admit Date: 12/31/2022. Hospital Day: 8 CC: Seizures Hospital Course: Mojgan Tabor is 62 year old male with history of epilepsy, chronic hypoxic respiratory failure (w/ trach), H/o multiple CVA's w/ residual deficits, PEG dependent, HTN, vascular dementia, alcohol use disorder. admitted on 12/31/2022 from OSH for continued seizures and concern for status epilepticus. ?? Initially admitted at [facility] on 12/18/22 for hypoxia and tachycardia. Found to have a RLLpneumonia. Sputum cultures were significant for Pseudomonas and Actinobacter resistant to multiple antibiotics. He completed a course of cefepime (EOT 12/25) and Bactrim (EOT 12/30) with improvement in leukocytosis and clinical symptoms. OSH initially planned to discharge on 12/28 however patient began having worsening seizures that were recurrent in nature. Home Clobazam was not on formulary at OSH. Neurology was consulted for concern of status epilepticus. Remainder of home Keppra 200mg BID, Valproate 750mg BID, and Lacosamide 200mg BID were continued. On 12/30 Neurology increased his Valproate to 750mg QID as patient continued to have recurrent seizures. He was transferred for higher level of care and continuous EEG given concern for subclinical seizures. ?? On presentation patient is unable to communicate given propofol drip. Per family he is normally A&Ox4. He has not had a seizure since last year until this previous admission per family. On admission VSS; satting well w/ FiO2 30%, PEEP 5. Trach and GJ tube in place; placement confirmed with radiology. Outside paredes exchanged. Initial ABG w/ pH 7.50, CO2 33, and O2 175. Repeat ABG following adju stment improved. w/ pH 7.44. Labs w/ K 4.8, Mg. 1.9, Phos 3.1, Lactate 1.6, WBC 6.8, Hg 10.3. Tropsnegative. CXR unremarkable; trach in proper position. KUB w/ well positioned GJ tube. In the MICU, neurology was consulted. Patient started on Propofol drip, hooked up to cEEG and restarted his home AEDs. EEG showed initially seizure like activity that with restarting of his meds, brain waves improved, significantly. Interval History: Patient opening eyes spontaneously, able to follow more commands, increasingly alert this AM. Pt AFVSS, off levo since 6PM 01/02. Pt stable off pressors and sedation, referrals sent by social work for LTACH placement. Objective: Vitals: 01/08/23 1100 01/08/23 1200 01/08/23 1207 01/08/23 1300 BP: 111/75 121/84 113/78 Pulse: 82 84 86 89 Resp: Temp: 97.9 ??F (36.6 ??C) SpO2: 96% 92% 96% 96% Weight: Height: Intake/Output Summary (Last 24 hours) at 01/08/2023 1410 Last data filed at 01/08/2023 1351 Gross per 24 hour Intake 1283 ml Output 600 ml Net 683 ml -spontaneous on vent PEEP/CPAP: 5 cm H20 Mean Airway Pressure (cm H2O): 10 cm H2O O2 %: 25 % Physical Exam General - NAD, afebrile, non cachectic HEENT - NC/AT, clear conjunctivae, moist mucous membranes Neck - Supple, no LAD, no JVD, Trach in place to MV Chest - CTAB no crackles or wheezes bilaterally. CV - RRR no murmurs, radial and DP pulses 2/4, good capillary refill Abdomen - Soft, NT/ND, +BS, no organomegaly. GJ tube in place. No surrounding erythema. Extremities - No edema or injury. Skin - No rashes, lesions or jaundice Neurologic - able to follow some commands Psych - Unable to assess ?? Labs: CBC: Recent Labs Component Name 01/08/2334901/07/2342401/06/23410 WBC 5.7 6.7 8.4 HGB 10.2* 10.0* 10.3* HCT 31.5* 30.1* 32.2* BMP: Recent Labs Component Name 01/08/2334901/07/235 01/06/23 0411 NA 141 140 139 CL 105 105 105 CO2 28 28 26 BUN 19 19 15 CREATININE 0.42* 0.43* 0.44* CALCIUM 9.3 9.2 9.3 PHOS 2.5* 2.5* 2.2* Hepatic: Recent Labs Component Name 01/08/2334901/07/2342401/06/23 0411 ALT 9 11 10 AST 15 14 14 TBILI 0.2 0.2 0.2 PROT 6.8 6.7 6.9 ALB 2.6* 2.6* 2.6* ALKPHOS 82 86 94 Coagulation: Recent Labs Component Name 12/31/22205212/13/22 0146 12/09/22 1211 PT 13.7 13.3 14.3 INR 1.1 1.0 1.1 Micro: None Imaging: Imaging reviewed. Assessment: Pt making mild improvements each day, will attempt to wean off mechanical ventilation as mental status continues to improve. Pt off all sedation and pressors, HDS with trach in place. History of CVA (cerebrovascular accident) (POA: Yes) Hyperlipidemia (POA: Yes) Status epilepticus (CMS/HCC) (POA: Yes) Seizure disorder (CMS/HCC) (POA: Yes) Chronic respiratory failure with hypoxia (CMS/HCC) (POA: Yes) Dementia, vascular (CMS/HCC) (POA: Yes) PEG (percutaneous endoscopic gastrostomy) status (CMS/HCC) (POA: Yes) Tracheostomy in place (CMS/HCC) (POA: Yes) Anemia of chronic disease (POA: Yes) Acute encephalopathy (POA: Yes) PLAN: Neurological: RASS goal -1-0 #Focal Epilepsy #Status Epilepticus? In setting of cefepime use and discontinuation of Clobazam and acute PNA at OSH Concern for subclinical seizures and status epilepticus given continued seizures at OSH despite treatment Episodes of facial twitching. Home regimen: Keppra 2000mg BID, Clobazam 20mg BID, Lacosamide 200mg BID, Valproate 750mg BID (never increased to QID from OSH, pending neuro recs for this discrepancy) Valproate wnl Elevated Trig (700s), but normal CK PLAN: - Neurology consulted - Off propofol, EEG shows no seizure activity, continue to observe - Continue home regimen as above. - D' C cEEG per neuro - If patient continues to seize, please call/page general neurology and discuss adding a second granite cutter - On seizure and fall precaution - valproate 500mg QID home dose -valproate levels on 01/10 ?? #Acute Encephalopathy #Vascular dementia Likely secondary to continued seizures, sedation and previously likely secondary to infection. Baseline A&Ox3 per family. Ammonia,TSH, wnl CT Head showed no acute findings PLAN: - Aspiration precaution Cardiovascular: MAP goal > 65 #Hypotension Likely 2/2 propofol, weaning today S/p 500cc LR PLAN: -keep PICC line in place, multiple providers including anesthesia unable to place PIV, regular dressings changes for PICC line. ?? #HTN - home metoprolol 25mg BID ?? Pulmonary: SpO2 goal - 92% ?? #Chronic Hypoxic Respiratory Failure - Trach dependent on SMCV - Initial ABG w/ pH 7.50; improved to 7.44 following adjustments - CXR w/ stable trach placement. -5/5 pressure support, if pt tolerates, consider trach collar trial for 4 hours at most. ??-on spontaneous vent 10/10 25% FiO2, tolerating well #Aspiration Pneumonia- Resolved - S/p treatment for aspiration pneumonia as below ?? GI: #GJ tube dependence - KUB w/ evidence of proper placement - Tube feeds adjust daily to goal of 50mL ?? Renal: MARI, pt admitted to [facility] with chronic paredes that was exchanged on admission, keep in place atthis time ?? Endocrine: BGM goal 140-180 mg/dL ?? ID: #Aspiration Pneumonia- Resolved - Initially Hypoxic and tachycardic; CT Chest w/ consolidation of R lung and small pleural effusion. - Cultures at OSH w/ Pseudomonas and Acinetobacter resistant to multiple antibiotics - S/p treatment course w/ cefepime (EOT 12/25) and bactrim (EOT 12/30) - Afebrile on admission; no leukocytosis - CXR w/ no evidence of persistent consolidation. ?? Heme/Onc: #Anemia - Iron studies ordered - Vit B12?? FEN: -Monitor electrolytes QD, Replace K<4, Mg<2, Phos<3 ?? #Hyponatremia Volume down vs SIADH vs Adrenal Insufficiency S/p 500cc LR PLAN: - AM cortisol blood wnl Lines: PICC, Trach, Paredes, GJ tube Prophylaxis: Aspiration precautions w/ HOB elevation by 30 degrees GI prophyalxis w/ protonix DVT prophyalxis w/ SCDs, Lovenox Diet: NPO, TF Activity: Best Rest Disposition: LTACH-referrals sent Code Status: Full Rickie Salas MD Associated attestation - Ck Small MD - 01/08/2023 5:32 PM CDT I have seen and examined the patient with the resident and I agree with the findings and plan of care as documented by the resident. Date of Service: 01/08/2023 Ck Small MD * Stalin Lawrence RN - 01/08/2023 12:18 PM CDT Per Team [phone]. Patient needing LTAC referrals done. [facility] to [facility] Pending approval Stalin Lawrence RN, BSN [employer] Manager [phone] * Yana Martinez RCP - 01/08/2023 1:11 AM CDT Problem: Mechanical Ventilation Goal: Patent airway Outcome: Progressing Goal: Oral health is maintained or improved Outcome: Progressing Goal: Tracheostomy will be managed safely Outcome: Progressing Problem: Oxygenation/Respiratory Function Goal: Patent airway Outcome: Progressing Received patient on S-CMV mode on ventilator. Will wean ventilator settings as ordered by the physician and tolerated by the patient. * Blair Boo RN - 01/07/2023 10:46 PM CDT Problem: Mechanical Ventilation Goal: Patent airway Outcome: Progressing Goal: Oral health is maintained or improved Outcome: Progressing Goal: Tracheostomy will be managed safely Outcome: Progressing Goal: ET tube will be managed safely Outcome: Progressing Goal: Ability to express needs and understand communication Outcome: Progressing Goal: Mobility/activity is maintained at optimum level for patient Outcome: Progressing Problem: Oxygenation/Respiratory Function Goal: Patent airway Outcome: Progressing Goal: Respiratory rate/effort will be within specified limits Outcome: Progressing Problem: Knowledge Deficit Goal: Patient/Significant other demonstrates understanding of Tracheostomy Outcome: Progressing Problem: Potential for Infection Goal: Insertion site without signs/symptoms of infection Outcome: Progressing * Mariella Villela RCP - 01/07/2023 2:43 PM CDT Problem: Mechanical Ventilation Goal: Patent airway Outcome: Progressing Goal: Oral health is maintained or improved Outcome: Progressing Goal: Tracheostomy will be managed safely Outcome: Progressing Goal: Ability to express needs and understand communication Outcome: Progressing Goal: Mobility/activity is maintained at optimum level for patient Outcome: Progressing * Felicity Lofton RN - 01/07/2023 2:38 PM CDT Care Coordination Progress Note Anticipated level of care at discharge: [facility] - Medicaid: Anticipated level of care provider: [facility] ([facility] and [facility]): Anticipated Discharge Date: 01/10/23: Discharge Plan: Anticipate return to [facility] when Medically ready Orientation Level: Oriented to Person: Family Support (Name and Phone): Extended Emergency Contact Information Primary Emergency Contact: Adriane Hilliard Mobile Relation: Sister Garage Manager needed? No Secondary Emergency Contact: Amarjit Tabor [facility] Relation: Brother Transportation at Discharge: Ambulance: READMISSION RISK SCORE is 29 at 2:38 PM 01/07/2023.: Name: Felicity Lofton RN/[id number] * Rosa Elena Wood RN - 01/07/2023 2:29 PM CDT Patient was up in the neuro chair for 6 hours at 5/5 @25% on the vent. Approximately, around 12 hisvolumes on the vent decreased to 150s and he was placed back on his original setting SCMV. RT and MICU 2 resident informed. * Rickie Salas MD - 01/07/2023 2:19 PM CDT MICU Progress Note 01/07/2023 2:19 PM Patient: Mojgan Tabor (:1960) Room: [facility] Admit Date: 12/31/2022. Hospital Day: 7 CC: Seizures Hospital Course: Mojgan Tabor is 62 year old male with history of epilepsy, chronic hypoxic respiratory failure (w/ trach), H/o multiple CVA's w/ residual deficits, PEG dependent, HTN, vascular dementia, alcohol use disorder. admitted on 12/31/2022 from OSH for continued seizures and concern for status epilepticus. ?? Initially admitted at [facility] on 12/18/22 for hypoxia and tachycardia. Found to have a RLLpneumonia. Sputum cultures were significant for Pseudomonas and Actinobacter resistant to multiple antibiotics. He completed a course of cefepime (EOT 12/25) and Bactrim (EOT 12/30) with improvement in leukocytosis and clinical symptoms. OSH initially planned to discharge on 12/28 however patient began having worsening seizures that were recurrent in nature. Home Clobazam was not on formulary at OSH. Neurology was consulted for concern of status epilepticus. Remainder of home Keppra 200mg BID, Valproate 750mg BID, and Lacosamide 200mg BID were continued. On 12/30 Neurology increased his Valproate to 750mg QID as patient continued to have recurrent seizures. He was transferred for higher level of care and continuous EEG given concern for subclinical seizures. ?? On presentation patient is unable to communicate given propofol drip. Per family he is normally A&Ox4. He has not had a seizure since last year until this previous admission per family. On admission VSS; satting well w/ FiO2 30%, PEEP 5. Trach and GJ tube in place; placement confirmed with radiology. Outside paredes exchanged. Initial ABG w/ pH 7.50, CO2 33, and O2 175. Repeat ABG following adju stment improved. w/ pH 7.44. Labs w/ K 4.8, Mg. 1.9, Phos 3.1, Lactate 1.6, WBC 6.8, Hg 10.3. Tropsnegative. CXR unremarkable; trach in proper position. KUB w/ well positioned GJ tube. In the MICU, neurology was consulted. Patient started on Propofol drip, hooked up to cEEG and restarted his home AEDs. EEG showed initially seizure like activity that with restarting of his meds, brain waves improved, significantly. Interval History: Patient opening eyes spontaneously, able to follow some commands but not fully alert and oriented. Pt AFVSS, off levo since 6PM 01/02. Per collateral from sister, pt usually takes several days after anepileptic episode to return to baseline mental status, pt is able to speak and coherently communicate at [facility]. Sister states epileptic episodes usually occur if pt is unable to access currentmedication regimens when they run out at [facility]. Objective: Vitals: 01/07/23 1147 01/07/23 1150 01/07/23 1158 01/07/23 1200 BP: (!) 183/97 (!) 174/100 153/97 160/93 Pulse: 105 101 94 91 Resp: Temp: SpO2: 97% 96% 97% 97% Weight: Height: Intake/Output Summary (Last 24 hours) at 01/07/2023 1419 Last data filed at 01/07/2023 1239 Gross per 24 hour Intake 1579 ml Output 750 ml Net 829 ml -spontaneous on vent PEEP/CPAP: 5 cm H20 Mean Airway Pressure (cm H2O): 10 cm H2O O2 %: 25 % Physical Exam General - NAD, afebrile, non cachectic HEENT - NC/AT, clear conjunctivae, moist mucous membranes Neck - Supple, no LAD, no JVD, Trach in place to MV Chest - CTAB no crackles or wheezes bilaterally. CV - RRR no murmurs, radial and DP pulses 2/4, good capillary refill Abdomen - Soft, NT/ND, +BS, no organomegaly. GJ tube in place. No surrounding erythema. Extremities - No edema or injury. Skin - No rashes, lesions or jaundice Neurologic - A&O x 0, able to follow some commands Psych - Unable to assess ?? Labs: CBC: Recent Labs Component Name 01/07/2342401/06/2341001/05/23340 WBC 6.7 8.4 5.7 HGB 10.0* 10.3* 11.7* HCT 30.1* 32.2* 35.3 BMP: Recent Labs Component Name 01/07/2342401/06/2341001/05/23340 NA 140 139 139 CL 105 105 107 CO2 28 26 28 BUN 19 15 17 CREATININE 0.43* 0.44* 0.51* CALCIUM 9.2 9.3 9.6 PHOS 2.5* 2.2* 2.4* Hepatic: Recent Labs Component Name 01/07/2342401/06/2341001/05/23 0341 ALT 11 10 9 AST 14 14 14 TBILI 0.2 0.2 0.2 PROT 6.7 6.9 7.2 ALB 2.6* 2.6* 2.8* ALKPHOS 86 94 105 Coagulation: Recent Labs Component Name 12/31/22205212/13/22 0146 12/09/22 1211 PT 13.7 13.3 14.3 INR 1.1 1.0 1.1 Micro: None Imaging: Imaging reviewed. Assessment: Pt making mild improvements each day, will attempt to wean off mechanical ventilation as mental status continues to improve. Pt off all sedation and pressors, HDS with trach in place. History of CVA (cerebrovascular accident) (POA: Yes) Hyperlipidemia (POA: Yes) Status epilepticus (CMS/HCC) (POA: Yes) Seizure disorder (CMS/HCC) (POA: Yes) Chronic respiratory failure with hypoxia (CMS/HCC) (POA: Yes) Dementia, vascular (CMS/HCC) (POA: Yes) PEG (percutaneous endoscopic gastrostomy) status (CMS/HCC) (POA: Yes) Tracheostomy in place (CMS/HCC) (POA: Yes) Anemia of chronic disease (POA: Yes) Acute encephalopathy (POA: Yes) PLAN: Neurological: RASS goal -1-0 #Focal Epilepsy #Status Epilepticus? In setting of cefepime use and discontinuation of Clobazam and acute PNA at OSH Concern for subclinical seizures and status epilepticus given continued seizures at OSH despite treatment Episodes of facial twitching. Home regimen: Keppra 2000mg BID, Clobazam 20mg BID, Lacosamide 200mg BID, Valproate 750mg BID (never increased to QID from OSH, pending neuro recs for this discrepancy) Valproate wnl Elevated Trig (700s), but normal CK PLAN: - Neurology consulted - Off propofol, EEG shows no seizure activity, continue to observe - Continue home regimen as above. - D' C cEEG per neuro - If patient continues to seize, please call/page general neurology and discuss adding a second granite cutter - On seizure and fall precaution - valproate 500mg QID home dose -valproate levels on 01/10 ?? #Acute Encephalopathy #Vascular dementia Likely secondary to continued seizures, sedation and previously likely secondary to infection. Baseline A&Ox3 per family. Ammonia,TSH, wnl CT Head showed no acute findings PLAN: - Aspiration precaution Cardiovascular: MAP goal > 65 #Hypotension Likely 2/2 propofol, weaning today S/p 500cc LR PLAN: -keep PICC line in place, multiple providers including anesthesia unable to place PIV, regular dressings changes for PICC line. ?? #HTN - home metoprolol 25mg BID ?? Pulmonary: SpO2 goal - 92% ?? #Chronic Hypoxic Respiratory Failure - Trach dependent on SMCV - Initial ABG w/ pH 7.50; improved to 7.44 following adjustments - CXR w/ stable trach placement. -5/5 pressure support, if pt tolerates, consider trach collar trial for 4 hours at most. ??-Pt failed to tolerate spontaneous 5/5, now back on volume control #Aspiration Pneumonia- Resolved - S/p treatment for aspiration pneumonia as below ?? GI: #GJ tube dependence - KUB w/ evidence of proper placement - Tube feeds adjust daily to goal of 50mL ?? Renal: MARI, pt admitted to [facility] with chronic paredes that was exchanged on admission, keep in place atthis time ?? Endocrine: BGM goal 140-180 mg/dL ?? ID: #Aspiration Pneumonia- Resolved - Initially Hypoxic and tachycardic; CT Chest w/ consolidation of R lung and small pleural effusion. - Cultures at OSH w/ Pseudomonas and Acinetobacter resistant to multiple antibiotics - S/p treatment course w/ cefepime (EOT 12/25) and bactrim (EOT 12/30) - Afebrile on admission; no leukocytosis - CXR w/ no evidence of persistent consolidation. ?? Heme/Onc: #Anemia - Iron studies ordered - Vit B12?? FEN: -Monitor electrolytes QD, Replace K<4, Mg<2, Phos<3 ?? #Hyponatremia Volume down vs SIADH vs Adrenal Insufficiency S/p 500cc LR PLAN: - AM cortisol blood wnl Lines: PICC, Trach, Paredes, GJ tube Prophylaxis: Aspiration precautions w/ HOB elevation by 30 degrees GI prophyalxis w/ protonix DVT prophyalxis w/ SCDs, Lovenox Diet: NPO, TF Activity: Best Rest Disposition: ICU Monitoring Code Status: Full Rickie Salas MD Associated attestation - Ck Small MD - 01/07/2023 3:01 PM CDT I have seen and examined the patient with the resident and I agree with the findings and plan of care as documented by the resident. Date of Service: 01/07/2023 Ck Small MD * Yana Martinez RCP - 01/07/2023 1:38 AM CDT Problem: Mechanical Ventilation Goal: Patent airway Outcome: Progressing Goal: Oral health is maintained or improved Outcome: Progressing Goal: Tracheostomy will be managed safely Outcome: Progressing Problem: Oxygenation/Respiratory Function Goal: Patent airway Outcome: Progressing Received patient on s-cmv mode on ventilator. Will wean ventilator settings as ordered by the physician and tolerated by the patient. * Rickie Salas MD - 01/06/2023 12:41 PM CDT MICU Progress Note 01/06/2023 12:41 PM Patient: Mojgan Tabor (:1960) Room: [facility] Admit Date: 12/31/2022. Hospital Day: 6 CC: Seizures Hospital Course: Mojgan Tabor is 62 year old male with history of epilepsy, chronic hypoxic respiratory failure (w/ trach), H/o multiple CVA's w/ residual deficits, PEG dependent, HTN, vascular dementia, alcohol use disorder. admitted on 12/31/2022 from OSH for continued seizures and concern for status epilepticus. ?? Initially admitted at [facility] on 12/18/22 for hypoxia and tachycardia. Found to have a RLLpneumonia. Sputum cultures were significant for Pseudomonas and Actinobacter resistant to multiple antibiotics. He completed a course of cefepime (EOT 12/25) and Bactrim (EOT 12/30) with improvement in leukocytosis and clinical symptoms. OSH initially planned to discharge on 12/28 however patient began having worsening seizures that were recurrent in nature. Home Clobazam was not on formulary at OSH. Neurology was consulted for concern of status epilepticus. Remainder of home Keppra 200mg BID, Valproate 750mg BID, and Lacosamide 200mg BID were continued. On 12/30 Neurology increased his Valproate to 750mg QID as patient continued to have recurrent seizures. He was transferred for higher level of care and continuous EEG given concern for subclinical seizures. ?? On presentation patient is unable to communicate given propofol drip. Per family he is normally A&Ox4. He has not had a seizure since last year until this previous admission per family. On admission VSS; satting well w/ FiO2 30%, PEEP 5. Trach and GJ tube in place; placement confirmed with radiology. Outside paredes exchanged. Initial ABG w/ pH 7.50, CO2 33, and O2 175. Repeat ABG following adju stment improved. w/ pH 7.44. Labs w/ K 4.8, Mg. 1.9, Phos 3.1, Lactate 1.6, WBC 6.8, Hg 10.3. Tropsnegative. CXR unremarkable; trach in proper position. KUB w/ well positioned GJ tube. In the MICU, neurology was consulted. Patient started on Propofol drip, hooked up to cEEG and restarted his home AEDs. EEG showed initially seizure like activity that with restarting of his meds, brain waves improved, significantly. Interval History: Patient more alert this AM, eyes spontaneously opening without twitching and attempts to mouth words but otherwise AxOx0 and unable to follow commands. Pt AFVSS, off levo since 6PM 01/02. Per collateral from sister, pt usually takes several days after an epileptic episode to return to baseline mentalstatus, pt is able to speak and coherently communicate at [facility]. Sister states epileptic episodes usually occur if pt is unable to access current medication regimens when they run out at [facility]. Objective: Vitals: 01/06/23 0600 01/06/23 0800 01/06/23 0900 01/06/23 1200 BP: 119/69 118/74 127/74 Pulse: 78 73 67 Resp: Temp: 98.2 ??F (36.8 ??C) 97.7 ??F (36.5 ??C) SpO2: 97% 96% Weight: Height: Intake/Output Summary (Last 24 hours) at 01/06/2023 1241 Last data filed at 01/06/2023 1229 Gross per 24 hour Intake 1874 ml Output 1060 ml Net 814 ml -spontaneous on vent PEEP/CPAP: 5 cm H20 Mean Airway Pressure (cm H2O): 10 cm H2O O2 %: 25 % Physical Exam General - NAD, afebrile, non cachectic HEENT - NC/AT, clear conjunctivae, moist mucous membranes Neck - Supple, no LAD, no JVD Chest - CTAB no crackles or wheezes bilaterally. Trach in place to MV CV - RRR no murmurs, radial and DP pulses 2/4, good capillary refill Abdomen - Soft, NT/ND, +BS, no organomegaly. GJ tube in place. No surrounding erythema. Extremities - No edema or injury. Skin - No rashes, lesions or jaundice Neurologic - A&O x 0, slightly withdraws upper extremities to pain. Weak gag and strong cough. Psych - Unable to assess ?? Labs: CBC: Recent Labs Component Name 01/06/2341001/05/2334001/04/23316 WBC 8.4 5.7 6.2 HGB 10.3* 11.7* 10.2* HCT 32.2* 35.3 31.2* BMP: Recent Labs Component Name 01/06/2341001/05/2334001/04/23316 NA 139 139 139 CL 105 107 103 CO2 26 28 27 BUN 15 17 16 CREATININE 0.44* 0.51* 0.57* CALCIUM 9.3 9.6 9.0 PHOS 2.2* 2.4* 2.9 Hepatic: Recent Labs Component Name 01/06/2341001/05/2334001/04/23316 ALT 10 9 7 AST 14 14 11 TBILI 0.2 0.2 0.2 PROT 6.9 7.2 6.7 ALB 2.6* 2.8* 2.6* ALKPHOS 94 105 103 Coagulation: Recent Labs Component Name 12/31/22205212/13/22 0146 12/09/22 1211 PT 13.7 13.3 14.3 INR 1.1 1.0 1.1 Micro: None Imaging: Imaging reviewed. Assessment: History of CVA (cerebrovascular accident) (POA: Yes) Hyperlipidemia (POA: Yes) Status epilepticus (CMS/HCC) (POA: Yes) Seizure disorder (CMS/HCC) (POA: Yes) Chronic respiratory failure with hypoxia (CMS/HCC) (POA: Yes) Dementia, vascular (CMS/HCC) (POA: Yes) PEG (percutaneous endoscopic gastrostomy) status (CMS/HCC) (POA: Yes) Tracheostomy in place (CMS/HCC) (POA: Yes) Anemia of chronic disease (POA: Yes) Acute encephalopathy (POA: Yes) PLAN: Neurological: RASS goal -1-0 #Focal Epilepsy #Status Epilepticus? In setting of cefepime use and discontinuation of Clobazam and acute PNA at OSH Concern for subclinical seizures and status epilepticus given continued seizures at OSH despite treatment Episodes of facial twitching. Home regimen: Keppra 2000mg BID, Clobazam 20mg BID, Lacosamide 200mg BID, Valproate 750mg BID (never increased to QID from OSH, pending neuro recs for this discrepancy) Valproate wnl Elevated Trig (700s), but normal CK PLAN: - Neurology consulted - Off propofol, EEG shows no seizure activity, continue to observe - Continue home regimen as above. - D' C cEEG per neuro - If patient continues to seize, please call/page general neurology and discuss adding a second granite cutter - On seizure and fall precaution - Increase valproate to 500mg QID home dose -valproate levels in 3-4 days, f/u with pharmacy ?? #Acute Encephalopathy #Vascular dementia Likely secondary to continued seizures, sedation and previously likely secondary to infection. Baseline A&Ox3 per family. Ammonia,TSH, wnl CT Head showed no acute findings PLAN: - Aspiration precaution Cardiovascular: MAP goal > 65 #Hypotension Likely 2/2 propofol, weaning today S/p 500cc LR PLAN: -keep PICC line in place, multiple providers including anesthesia unable to place PIV, regular dressings changes for PICC line. ?? #HTN - restart home metoprolol 25mg BID ?? Pulmonary: SpO2 goal - 92% ?? #Chronic Hypoxic Respiratory Failure - Trach dependent on SMCV - Initial ABG w/ pH 7.50; improved to 7.44 following adjustments - CXR w/ stable trach placement. -will consider 5/5 pressure support, if pt tolerates, consider trach collar trial for 4 hours at most. ?? #Aspiration Pneumonia- Resolved - S/p treatment for aspiration pneumonia as below ?? GI: #GJ tube dependence - KUB w/ evidence of proper placement - Tube feeds adjust daily to goal of 50mL ?? Renal: MARI, pt admitted to [facility] with chronic paredes that was exchanged on admission, keep in place atthis time ?? Endocrine: BGM goal 140-180 mg/dL ?? ID: #Aspiration Pneumonia- Resolved - Initially Hypoxic and tachycardic; CT Chest w/ consolidation of R lung and small pleural effusion. - Cultures at OSH w/ Pseudomonas and Acinetobacter resistant to multiple antibiotics - S/p treatment course w/ cefepime (EOT 12/25) and bactrim (EOT 12/30) - Afebrile on admission; no leukocytosis - CXR w/ no evidence of persistent consolidation. ?? Heme/Onc: #Anemia - Iron studies ordered - Vit B12?? FEN: -Monitor electrolytes QD, Replace K<4, Mg<2, Phos<3 ?? #Hyponatremia Volume down vs SIADH vs Adrenal Insufficiency S/p 500cc LR PLAN: - AM cortisol blood wnl Lines: PICC, Trach, Paredes, GJ tube Prophylaxis: Aspiration precautions w/ HOB elevation by 30 degrees GI prophyalxis w/ protonix DVT prophyalxis w/ SCDs, Lovenox Diet: NPO, TF Activity: Best Rest Disposition: ICU Monitoring Code Status: Full Rickie Salas MD Associated attestation - Ck Small MD - 01/06/2023 4:54 PM CDT I have seen and examined the patient with the resident and I agree with the findings and plan of care as documented by the resident. Date of Service: 01/06/2023 Ck Small MD * Charles Regalado, [facility] - 01/06/2023 10:19 AM CDT Problem: Mechanical Ventilation Goal: Patent airway Outcome: Progressing Rt is able to pass suction catheter through trach to maintain patent airway Goal: Oral health is maintained or improved Outcome: Progressing oral hygiene is done by RT and nurse Q4 Goal: Tracheostomy will be managed safely Outcome: Progressing Pt currently has a 6.0 bivona and pt will be suction Q4 done by the RT and nurses * Zulma Michelle RCP - 01/06/2023 4:07 AM CDT Problem: Mechanical Ventilation Goal: Patent airway Outcome: Progressing Pt will be monitored for secretions and will be suctioned as needed to maintain patent airway. Problem: Mechanical Ventilation Goal: Tracheostomy will be managed safely Outcome: Progressing Trach will be secured via trach black device to keep airway in place. Size 6.0 Bivona trach secured via trach black. Vent circuit supported to prevent pulling on trach. * J Carlos Ann RN - 01/05/2023 11:33 PM CDT Problem: Mechanical Ventilation Goal: Patent airway Outcome: Progressing Goal: Oral health is maintained or improved Outcome: Progressing Goal: Tracheostomy will be managed safely Outcome: Progressing Goal: ET tube will be managed safely Outcome: Progressing Goal: Ability to express needs and understand communication Outcome: Progressing Goal: Mobility/activity is maintained at optimum level for patient Outcome: Progressing Problem: Oxygenation/Respiratory Function Goal: Patent airway Outcome: Progressing Goal: Respiratory rate/effort will be within specified limits Outcome: Progressing Problem: Care of Tracheostomy Goal: Tracheostomy tube and site will be maintained Outcome: Progressing Problem: Potential for Infection Goal: Insertion site without signs/symptoms of infection Outcome: Progressing Problem: Knowledge Deficit Goal: Patient/Significant other demonstrates understanding of Tracheostomy Outcome: Progressing Problem: Nutrient: Malnutrition Goal: Total intake will meet estimated nutrient needs Outcome: Progressing Problem: Skin Integrity Goal: Skin integrity is maintained or improved Outcome: Progressing Problem: Pain/Discomfort Goal: Patient exhibits reduced pain/discomfort as evidenced by pain scores Outcome: Progressing Goal: Patient uses pharmacological and non-pharmacological pain management strategies. Outcome: Progressing Goal: Patient verbalizes acceptable level of pain relief and ability to engage in desired activity. Outcome: Progressing Problem: Fall Risk Goal: Fall risk and fall related injury risk are minimized (interventions related to the fall risk can be found in the flowsheet documentation) Outcome: Progressing * Sybil Ivan RCP - 01/05/2023 4:34 PM CDT Problem: Mechanical Ventilation Goal: Patent airway Outcome: Progressing Pt will be monitored for secretions and will be suctioned as needed to maintain patent airway. Problem: Mechanical Ventilation Goal: Tracheostomy will be managed safely Outcome: Progressing Trach will be secured via trach black device to keep airway in place. Size 6.0 Bivona trach secured via trach black. Vent circuit supported to prevent pulling on trach. * Rickie Salas MD - 01/05/2023 4:07 PM CDT MICU Progress Note 01/05/2023 4:07 PM Patient: Mojgna Tabor (:1960) Room: [facility] Admit Date: 12/31/2022. Hospital Day: 5 CC: Seizures Hospital Course: Mojgan Tabor is 62 year old male with history of epilepsy, chronic hypoxic respiratory failure (w/ trach), H/o multiple CVA's w/ residual deficits, PEG dependent, HTN, vascular dementia, alcohol use disorder. admitted on 12/31/2022 from OSH for continued seizures and concern for status epilepticus. ?? Initially admitted at [facility] on 12/18/22 for hypoxia and tachycardia. Found to have a RLLpneumonia. Sputum cultures were significant for Pseudomonas and Actinobacter resistant to multiple antibiotics. He completed a course of cefepime (EOT 12/25) and Bactrim (EOT 12/30) with improvement in leukocytosis and clinical symptoms. OSH initially planned to discharge on 12/28 however patient began having worsening seizures that were recurrent in nature. Home Clobazam was not on formulary at OSH. Neurology was consulted for concern of status epilepticus. Remainder of home Keppra 200mg BID, Valproate 750mg BID, and Lacosamide 200mg BID were continued. On 12/30 Neurology increased his Valproate to 750mg QID as patient continued to have recurrent seizures. He was transferred for higher level of care and continuous EEG given concern for subclinical seizures. ?? On presentation patient is unable to communicate given propofol drip. Per family he is normally A&Ox4. He has not had a seizure since last year until this previous admission per family. On admission VSS; satting well w/ FiO2 30%, PEEP 5. Trach and GJ tube in place; placement confirmed with radiology. Outside paredes exchanged. Initial ABG w/ pH 7.50, CO2 33, and O2 175. Repeat ABG following adju stment improved. w/ pH 7.44. Labs w/ K 4.8, Mg. 1.9, Phos 3.1, Lactate 1.6, WBC 6.8, Hg 10.3. Tropsnegative. CXR unremarkable; trach in proper position. KUB w/ well positioned GJ tube. In the MICU, neurology was consulted. Patient started on Propofol drip, hooked up to cEEG and restarted his home AEDs. EEG showed initially seizure like activity that with restarting of his meds, brain waves improved, significantly. Interval History: Patient still deeply unresponsive this AM, eyes spontaneously opening without twitching but otherwise AxOx0. Pt AFVSS, off levo since 6PM 01/02. Per collateral from sister, pt usually takes several days after an epileptic episode to return to baseline mental status, pt [facility] to [facility] and [facility]communicate [facility]. Sister states epileptic episodes usually occur if pt is unable to access current medication regimens when they run out at [facility]. Objective: Vitals: 01/05/23 1156 01/05/23 1200 01/05/23 1300 01/05/23 1400 BP: 122/70 102/63 109/70 Pulse: 101 98 104 105 Resp: 21 9 (!) 7 Temp: 98.1 ??F (36.7 ??C) SpO2: 96% 98% 93% 92% Weight: Height: Intake/Output Summary (Last 24 hours) at 01/05/2023 1607 Last data filed at 01/05/2023 1222 Gross per 24 hour Intake 921 ml Output 745 ml Net 176 ml -spontaneous on vent PEEP/CPAP: 5 cm H20 Mean Airway Pressure (cm H2O): 10 cm H2O O2 %: 25 % Physical Exam General - NAD, afebrile, non cachectic HEENT - NC/AT, clear conjunctivae, moist mucous membranes Neck - Supple, no LAD, no JVD Chest - CTAB no crackles or wheezes bilaterally. Trach in place to MV CV - RRR no murmurs, radial and DP pulses 2/4, good capillary refill Abdomen - Soft, NT/ND, +BS, no organomegaly. GJ tube in place. No surrounding erythema. Extremities - No edema or injury. Skin - No rashes, lesions or jaundice Neurologic - A&O x 0, slightly withdraws upper extremities to pain. Weak gag and strong cough. Psych - Unable to assess ?? Labs: CBC: Recent Labs Component Name 01/05/2334001/04/2331601/03/23 0339 WBC 5.7 6.2 6.3 HGB 11.7* 10.2* 9.7* HCT 35.3 31.2* 28.9* BMP: Recent Labs Component Name 01/05/2334001/04/2331601/03/23 0339 NA 139 139 132* CL 107 103 100 CO2 28 27 25 BUN 17 16 18 CREATININE 0.51* 0.57* 0.61* CALCIUM 9.6 9.0 8.8 PHOS 2.4* 2.9 3.5 Hepatic: Recent Labs Component Name 01/05/2334001/04/2331601/03/23 0339 ALT 9 7 8 AST 14 11 12 TBILI 0.2 0.2 0.2 PROT 7.2 6.7 7.0 ALB 2.8* 2.6* 2.5* ALKPHOS 105 103 103 Coagulation: Recent Labs Component Name 12/31/22205212/13/22 0146 12/09/22 1211 PT 13.7 13.3 14.3 INR 1.1 1.0 1.1 Micro: None Imaging: Imaging reviewed. Assessment: History of CVA (cerebrovascular accident) (POA: Yes) Hyperlipidemia (POA: Yes) Status epilepticus (CMS/HCC) (POA: Yes) Seizure disorder (CMS/HCC) (POA: Yes) Chronic respiratory failure with hypoxia (CMS/HCC) (POA: Yes) Dementia, vascular (CMS/HCC) (POA: Yes) PEG (percutaneous endoscopic gastrostomy) status (CMS/HCC) (POA: Yes) Tracheostomy in place (CMS/HCC) (POA: Yes) Anemia of chronic disease (POA: Yes) Acute encephalopathy (POA: Yes) PLAN: Neurological: RASS goal -1-0 #Focal Epilepsy #Status Epilepticus? In setting of cefepime use and discontinuation of Clobazam and acute PNA at OSH Concern for subclinical seizures and status epilepticus given continued seizures at OSH despite treatment Episodes of facial twitching. Home regimen: Keppra 2000mg BID, Clobazam 20mg BID, Lacosamide 200mg BID, Valproate 750mg BID (never increased to QID from OSH, pending neuro recs for this discrepancy) Valproate wnl Elevated Trig (700s), but normal CK PLAN: - Neurology consulted - Off propofol, EEG shows no seizure activity, continue to observe - Continue home regimen as above. - D' C cEEG per neuro - If patient continues to seize, please call/page general neurology and discuss adding a second granite cutter - On seizure and fall precaution - Valproate BID for now, if seizures persist, increase to QID - Valproate levels subtherapeutic, per neuro no need to increase since no seizures present ?? #Acute Encephalopathy #Vascular dementia Likely secondary to continued seizures, sedation and previously likely secondary to infection. Baseline A&Ox3 per family. Ammonia,TSH, wnl CT Head showed no acute findings PLAN: - Aspiration precaution Cardiovascular: MAP goal > 65 #Hypotension Likely 2/2 propofol, weaning today S/p 500cc LR PLAN: - on Levo, (not administered since 01/02 around 6PM) -keep PICC line in place, multiple providers including anesthesia unable to place PIV, regular dressings changes for PICC line. ?? #HTN - Home regimen metoprolol 25mg BID - Holding home regimen 2/2 soft pressures ?? Pulmonary: SpO2 goal - 92% ?? #Chronic Hypoxic Respiratory Failure - Trach dependent on SMCV - Initial ABG w/ pH 7.50; improved to 7.44 following adjustments - CXR w/ stable trach placement. ?? #Aspiration Pneumonia- Resolved - S/p treatment for aspiration pneumonia as below ?? GI: #GJ tube dependence - KUB w/ evidence of proper placement - Tube feeds adjust daily to goal of 50mL ?? Renal: MARI, pt admitted to [facility] with chronic paredes that was exchanged on admission, keep in place atthis time ?? Endocrine: BGM goal 140-180 mg/dL ?? ID: #Aspiration Pneumonia- Resolved - Initially Hypoxic and tachycardic; CT Chest w/ consolidation of R lung and small pleural effusion. - Cultures at OSH w/ Pseudomonas and Acinetobacter resistant to multiple antibiotics - S/p treatment course w/ cefepime (EOT 12/25) and bactrim (EOT 12/30) - Afebrile on admission; no leukocytosis - CXR w/ no evidence of persistent consolidation. ?? Heme/Onc: #Anemia - Iron studies ordered - Vit B12?? FEN: -Monitor electrolytes QD, Replace K<4, Mg<2, Phos<3 ?? #Hyponatremia Volume down vs SIADH vs Adrenal Insufficiency S/p 500cc LR PLAN: - AM cortisol blood wnl Lines: PICC, Trach, Paredes, GJ tube Prophylaxis: Aspiration precautions w/ HOB elevation by 30 degrees GI prophyalxis w/ protonix DVT prophyalxis w/ SCDs, Lovenox Diet: NPO, TF Activity: Best Rest Disposition: ICU Monitoring Code Status: Full Rickie Salas MD Associated attestation - Ck Small MD - 01/05/2023 4:50 PM CDT I have seen and examined the patient with the resident and I agree with the findings and plan of care as documented by the resident. Date of Service: 01/05/2023 Ck Small MD * Valerie Isaacs RN - 01/05/2023 1:48 PM CDT Care Coordination Progress Note Anticipated level of care at discharge: [facility] - Medicaid: Anticipated level of care provider: [facility] ([facility] and [facility]): Anticipated Discharge Date: 01/06/23: Discharge Plan: Anticipate return to [facility] when Medically ready Discharge needs dependent on response to clinical treatment and therapy recommendations. CM will continue to follow. Propofol been weaned off since 01/04 with no evidence of seizures on continuous EEG. Discontinued cEEG. Orientation Level: Unable to Obtain: Family Support (Name and Phone): Extended Emergency Contact Information Primary Emergency Contact: Adriane Hilliard Mobile Relation: Sister Garage Manager needed? No Secondary Emergency Contact: Amarjit Tabor [facility] Relation: Brother Transportation at Discharge: Ambulance: READMISSION RISK SCORE is 26 at 1:48 PM 01/05/2023.: Name: Valerie Isaacs RN [id number] * Nuria Guajardo, RD/LD - 01/05/2023 9:43 AM CDT Clinical Nutrition Assessment Brief Synopsis: Patient is diagnosed with severe malnutrition; Specific criteria can be found in assessment below Nutrition Plan: Vital AF 1.2 Bruno at goal of 50 ml/hr. Provides 1440 kcal, 90 g protein, 133 g carbohydrate, and 973 ml free water +50 ml q 6 hrs free water flush or per MD if on IVF +100 ml q4 hrs free water flush or per MD if not on additional fluids Recommendations to Physician: Add bowel regimen Code for malnutrition Comments: Pt scheduled for reassessment. Pt receiving TF at 50 ml/hr via J tube. Last BM 01/01 or 01/02. Asked for bowel regimen during MICU rounds this AM. Assessment: Med/Surg History and Clinical Diagnoses: history of epilepsy, chronic hypoxic respiratory failure s/p trach and PEG, multiple CVA's with residual deficits, HTN, and vascular dementia who was transferred from OSH for status epilepticus Height: 177.8 cm (5' 10 ) Weight: 65.8 kg (145 lb) BMI: Body mass index is 20.81 kg/m??. BMI Range: Normal IBW/lb (Calculated) Male: 166 , Recent Weights/Methods 12/07/2022 0600 12/08/2022 0400 12/14/2022 0400 12/16/2022 0407 12/31/2022 1933 01/01/2023 0334 01/04/2023 0400 01/05/2023 0357 Weight: 70.8 kg (156 lb 1.6 oz) 70.8 kg (156 lb) 61.6 kg (135 lb 12.8 oz) 72.4 kg (159 lb 11.2 oz) 59.6 kg (131 lb 6.3 oz) 59.6 kg (131 lb 6.3 oz) 57.3 kg (126 lb 6.4 oz) 65.8 kg (145 lb) Weight Method (Utilize Scales): Bedscale Bedscale Bedscale Bedscale Bedscale Bedscale Bedscale Bedscale Wt Comments: monitoring Diet order accuracy Current diet order: NPO Current tube feeding order: vital AF 50 ml/hr Nutrition recommendation: agree with current nutrition order P.O.Intake for the past 48 hrs: No data recorded Supplement(s) Consumed- Last 48 hours None Food Allergies: No known food allergies Chewing/Swallowing: (vent) Pain affecting intake: No Estimated Needs: KCAL: 2603-3442 (20-25kcal/kg (ABW)) Protein (g): 90g (1.5g/kg (ABW)) Fluid (ml): 1 ml/kcal Needs based on: Kcal/kg- (Comment) (ABW 59.6kg) Recommended Access Route: TF Malnutrition Etiology: Malnutrition in the context of: chronic disease, Malnutrition Severity: Severe Protein Calorie BMI: Body mass index is 20.81 kg/m??. GI Concerns: (J-tube) Nutrition Focused Physical Assessment: Loss of Subcutaneous Fat Orbital: Severe Buccal: Severe Muscle Loss Temples (Temporalis Muscle): Severe Clavicles (Pectoralis & Deltoids): Severe Shoulders (Deltoids): Severe Thigh (Quadriceps): Severe Pertinent Nutrition Labs: Recent Labs Component Name 01/05/23 0341 01/04/23 0317 01/03/23 0339 BUN 17 16 18 CREATININE 0.51* 0.57* 0.61* NA 139 139 132* POTASSIUM 3.8 3.6 3.7 CL 107 103 100 CO2 28 27 25 GLUCOSE 98 94 97 CALCIUM 9.6 9.0 8.8 PROT 7.2 6.7 7.0 ALB 2.8* 2.6* 2.5* TBILI 0.2 0.2 0.2 ALKPHOS 105 103 103 ALT 9 7 8 AST 14 11 12 ANIONGAP 8 13 11 BCR 33* 28* 30* OSMOLALITY 290 289 276 AGRATIO 0.6* 0.6* 0.6* EGFR >90 >90 >90 Pertinent Nutrition Medications: Current Facility-Administered Medications Medication ??? 0.9% NaCl injection 3 mL And ??? 0.9% NaCl injection 1-10 mL ??? artificial tears ophthalmic ointment ??? aspirin chew tablet 81 mg ??? chlorhexidine (Peridex) 0.12 % oral solution 15 mL ??? cloBAZam (Onfi) tablet 20 mg ??? enoxaparin (Lovenox) injection 40 mg ??? lacosamide (Vimpat) tablet 200 mg ??? levETIRAcetam (Keppra) tablet 2,000 mg ??? pantoprazole (Protonix) injection 40 mg ??? propofol (Diprivan) infusion ??? valproic acid (Depakene) solution 750 mg Skin/Wound: NWL Education needed: None Nutrition Care Process (1) Nutrition Diagnostic Statement: Malnutrition severity: : Severe related to:: increased nutrient needs due to illness;alteration in gastrointestinal tract structureor function as evidenced by:: BMI less than 19 Nutrition Diagnostic Statement Progress: Nutrition problem continues Nutrition Intervention: Enteral nutrition: Monitoring: TF, BM, labs, meds, weight Evaluation: Nutrition Goal: Total intake will meet estimated nutrient needs Nutrition Goal Timeframe: Throughout stay Nutrition Goal Progress: Continue with current goal Ascom: [id number] * Zulma Michelle RCP - 01/05/2023 4:45 AM CDT Problem: Mechanical Ventilation Goal: Patent airway Outcome: Progressing Pt will be monitored for secretions and will be suctioned as needed to maintain patent airway. Problem: Mechanical Ventilation Goal: Tracheostomy will be managed safely Outcome: Progressing Trach will be secured via trach black device to keep airway in place. Size 6.0 Bivona trach secured via trach black. Vent circuit supported to prevent pulling on trach. * Rickie Salas MD - 01/04/2023 1:05 PM CDT MICU Progress Note 01/04/2023 1:05 PM Patient: Mojagn Tabor (:1960) Room: [facility] Admit Date: 12/31/2022. Hospital Day: 4 CC: Seizures Hospital Course: Mojgan Tabor is 62 year old male with history of epilepsy, chronic hypoxic respiratory failure (w/ trach), H/o multiple CVA's w/ residual deficits, PEG dependent, HTN, vascular dementia, alcohol use disorder. admitted on 12/31/2022 from OSH for continued seizures and concern for status epilepticus. ?? Initially admitted at [facility] on 12/18/22 for hypoxia and tachycardia. Found to have a RLLpneumonia. Sputum cultures were significant for Pseudomonas and Actinobacter resistant to multiple antibiotics. He completed a course of cefepime (EOT 12/25) and Bactrim (EOT 12/30) with improvement in leukocytosis and clinical symptoms. OSH initially planned to discharge on 12/28 however patient began having worsening seizures that were recurrent in nature. Home Clobazam was not on formulary at OSH. Neurology was consulted for concern of status epilepticus. Remainder of home Keppra 200mg BID, Valproate 750mg BID, and Lacosamide 200mg BID were continued. On 12/30 Neurology increased his Valproate to 750mg QID as patient continued to have recurrent seizures. He was transferred for higher level of care and continuous EEG given concern for subclinical seizures. ?? On presentation patient is unable to communicate given propofol drip. Per family he is normally A&Ox4. He has not had a seizure since last year until this previous admission per family. On admission VSS; satting well w/ FiO2 30%, PEEP 5. Trach and GJ tube in place; placement confirmed with radiology. Outside paredes exchanged. Initial ABG w/ pH 7.50, CO2 33, and O2 175. Repeat ABG following adju stment improved. w/ pH 7.44. Labs w/ K 4.8, Mg. 1.9, Phos 3.1, Lactate 1.6, WBC 6.8, Hg 10.3. Tropsnegative. CXR unremarkable; trach in proper position. KUB w/ well positioned GJ tube. In the MICU, neurology was consulted. Patient started on Propofol drip, hooked up to cEEG and restarted his home AEDs. EEG showed initially seizure like activity that with restarting of his meds, brain waves improved, significantly. Interval History: Patient still deeply unresponsive this AM, eyes will open upon prompting without twitching but otherwise AxOx0. Pt AFVSSt, off levo since 6PM 01/02. Objective: Vitals: 01/04/23 1000 01/04/23 1100 01/04/23 1200 01/04/23 1210 BP: 104/69 103/68 118/65 Pulse: 70 74 74 77 Resp: 12 12 12 Temp: 98.1 ??F (36.7 ??C) 98.1 ??F (36.7 ??C) 98.1 ??F (36.7 ??C) SpO2: 98% 95% 97% 100% Weight: Height: Intake/Output Summary (Last 24 hours) at 01/04/2023 1305 Last data filed at 01/04/2023 1200 Gross per 24 hour Intake 1365.23 ml Output 1580 ml Net -214.77 ml SCMV S RR: 12 bpm S VT: 440 ML PEEP/CPAP: 5 cm H20 Mean Airway Pressure (cm H2O): 8 cm H2O O2 %: 35 % Physical Exam General - NAD, afebrile, non cachectic HEENT - NC/AT, clear conjunctivae, moist mucous membranes Neck - Supple, no LAD, no JVD Chest - CTAB no crackles or wheezes bilaterally. Trach in place to MV CV - RRR no murmurs, radial and DP pulses 2/4, good capillary refill Abdomen - Soft, NT/ND, +BS, no organomegaly. GJ tube in place. No surrounding erythema. Extremities - No edema or injury. Skin - No rashes, lesions or jaundice Neurologic - A&O x 0, twitches eyes spontaneously, slightly withdraws upper extremities to pain. Weak gag and strong cough. Psych - Unable to assess ?? Labs: CBC: Recent Labs Component Name 01/04/23 0317 01/03/23 0339 01/02/23 0339 WBC 6.2 6.3 5.9 HGB 10.2* 9.7* 10.1* HCT 31.2* 28.9* 30.1* BMP: Recent Labs Component Name 01/04/2331601/03/239 01/02/23338 NA 139 132* 132* CL 103 100 100 CO2 27 25 25 BUN 16 18 21 CREATININE 0.57* 0.61* 0.63* CALCIUM 9.0 8.8 9.1 PHOS 2.9 3.5 3.8 Hepatic: Recent Labs Component Name 01/04/2331601/03/2333801/02/23338 ALT 7 8 37 AST 11 12 13 TBILI 0.2 0.2 0.2 PROT 6.7 7.0 7.0 ALB 2.6* 2.5* 2.6* ALKPHOS 103 103 95 Coagulation: Recent Labs Component Name 12/31/22205212/13/22 0146 12/09/22 1211 PT 13.7 13.3 14.3 INR 1.1 1.0 1.1 Micro: None Imaging: Imaging reviewed. Assessment: History of CVA (cerebrovascular accident) (POA: Yes) Hyperlipidemia (POA: Yes) Status epilepticus (CMS/HCC) (POA: Yes) Seizure disorder (CMS/HCC) (POA: Yes) Chronic respiratory failure with hypoxia (CMS/HCC) (POA: Yes) Dementia, vascular (CMS/HCC) (POA: Yes) PEG (percutaneous endoscopic gastrostomy) status (CMS/HCC) (POA: Yes) Tracheostomy in place (CMS/HCC) (POA: Yes) Anemia of chronic disease (POA: Yes) Acute encephalopathy (POA: Yes) PLAN: Neurological: RASS goal -1-0 #Focal Epilepsy #Status Epilepticus? In setting of cefepime use and discontinuation of Clobazam and acute PNA at OSH Concern for subclinical seizures and status epilepticus given continued seizures at OSH despite treatment Episodes of facial twitching. Home regimen: Keppra 2000mg BID, Clobazam 20mg BID, Lacosamide 200mg BID, Valproate 750mg BID (never increased to QID from OSH, pending neuro recs for this discrepancy) Valproate wnl Elevated Trig (700s), but normal CK PLAN: - Neurology consulted - Off propofol, EEG shows no seizure activity, continue to observe - Continue home regimen as above. - cEEG - If patient continues to seize, please call/page general neurology and discuss adding a second granite cutter - On seizure and fall precaution - Valproate BID for now, if seizures persist, increase to QID ?? #Acute Encephalopathy #Vascular dementia Likely secondary to continued seizures, sedation and previously likely secondary to infection. Baseline A&Ox3 per family. Ammonia,TSH, valproate wnl CT Head showed no acute findings PLAN: - Aspiration precaution Cardiovascular: MAP goal > 65 #Hypotension Likely 2/2 propofol, weaning today S/p 500cc LR PLAN: - on Levo, (not administered since yesterday around 6PM) -keep PICC line in place, multiple providers including anesthesia unable to place PIV, regular dressings changes for PICC line. ?? #HTN - Home regimen metoprolol 25mg BID - Holding home regimen 2/2 soft pressures ?? Pulmonary: SpO2 goal - 92% ?? #Chronic Hypoxic Respiratory Failure - Trach dependent on SMCV - Initial ABG w/ pH 7.50; improved to 7.44 following adjustments - CXR w/ stable trach placement. ?? #Aspiration Pneumonia- Resolved - S/p treatment for aspiration pneumonia as below ?? GI: #GJ tube dependence - KUB w/ evidence of proper placement - Tube feeds adjust daily to goal of 50mL ?? Renal: MARI, pt admitted to [facility] with chronic paredes that was exchanged on admission, keep in place atthis time ?? Endocrine: BGM goal 140-180 mg/dL ?? ID: #Aspiration Pneumonia- Resolved - Initially Hypoxic and tachycardic; CT Chest w/ consolidation of R lung and small pleural effusion. - Cultures at OSH w/ Pseudomonas and Acinetobacter resistant to multiple antibiotics - S/p treatment course w/ cefepime (EOT 12/25) and bactrim (EOT 12/30) - Afebrile on admission; no leukocytosis - CXR w/ no evidence of persistent consolidation. ?? Heme/Onc: #Anemia - Iron studies ordered - Vit B12?? FEN: -Monitor electrolytes QD, Replace K<4, Mg<2, Phos<3 ?? #Hyponatremia Volume down vs SIADH vs Adrenal Insufficiency S/p 500cc LR PLAN: - AM cortisol blood wnl Lines: PICC, Trach, Paredes, GJ tube Prophylaxis: Aspiration precautions w/ HOB elevation by 30 degrees GI prophyalxis w/ protonix DVT prophyalxis w/ SCDs, Lovenox Diet: NPO, TF Activity: Best Rest Disposition: ICU Monitoring Code Status: Full Rickie Salas MD Associated attestation - Ck Small MD - 01/04/2023 5:09 PM CDT I have seen and examined the patient with the resident and I agree with the findings and plan of care as documented by the resident. Date of Service: 01/04/2023 Ck Small MD * Crescencio Carney MD - 01/04/2023 12:45 PM CDT Neurology Progress Note Patient: Mojgan Tabor Room: 334 Age: [age] year old Subjective: Mojgan Tabor is a 62 year old male with history of refractory focal epilepsy, h/o multiple CVA's w/residual deficits (s/p Tracheostomy), PEG dependent, HTN, vascular dementia, alcohol use disorder. Admitted on 12/31/2022 from OSH for continued seizures and concern for status epilepticus. Initially admitted at [facility] on 12/18/22 for hypoxia and tachycardia. Found to have a RLLpneumonia. Sputum cultures were significant for Pseudomonas and Actinobacter resistant to multiple antibiotics. He completed a course of cefepime (EOT 12/25) and Bactrim (EOT 12/30) with improvement in leukocytosis and clinical symptoms. OSH initially planned to discharge on 12/28 however patient began having worsening seizures that were recurrent in nature. Home Clobazam was not on formulary at OSH. Neurology was consulted for concern of status epilepticus. Remainder of home Keppra 2gr BID, Valproate 750mg BID, and Lacosamide 200mg BID were continued. On 12/30 Neurology increased his Valproate to 750mg QID as patient continued to have recurrent seizures. He was transferred for higher level of care and continuous EEG given concern for subclinical seizures. In the MICU, patient started on Propofol drip, cEEG started and described seizure-like activity from 12/31 - 01/01. Home AEDs were restarted, seizures on cEEG were no longer identified from 01/01 - 01/03, waves instead consistent with encephalopathy. Nurse reports stimulus induced eyelid twitching but no twitching of the face. Overnight: No events endorsed. Prop weaned to 10mcg, no evidence of seizures on cEEG. Prop weaned to off this AM, patient is awake with eyes spontaneously opened. Pt is not following commands or responding appropriately. Objective: BP 118/65 Pulse 77 Temp 98.1 ??F (36.7 ??C) Resp 12 Ht 1.778 m (5' 10 ) Wt 57.3 kg (126 lb 6.4 oz) SpO2 100% Temp (30hrs) Max:100 ??F (37.8 ??C) Body mass index is 18.14 kg/m??. Exam: General: Con - NAD, afebrile Intubated but awake and interacting appropriately. Cortical Function Mental Status Awake, does not follow commands Orientation EARNEST Language EARNEST Visual Ivan EARNEST Neglect EARNEST Cranial Nerves II Pupils 4 mm and bilaterally reactive to light. Fundoscopic exam not performed. VIII EARNEST. Hearingis intact bilaterally to finger rub. III/IV/ Extraocular muscles intact. No diplopia, ptosis, nystagmus or convergence abnormalities noted. IX/X EARNEST V Facial sensation symmetric to light touch and intact bilaterally. Corneal reflex not examined. XIHead turning EARNEST but shoulder shrug are intact. VII No facial palsy noted but intubated. XII EARNEST Motor Function Movement No abnormalities noted Bulk No abnormalities noted Tone No abnormalities noted Proximal Upper Distal Upper Proximal Lower Distal Lower Right 5/5 5/5 5/5 5/5 Left 5/5 5/5 5/5 5/5 Muscle Stretch Reflexes BI TRI BR PAT ACH TOES Right 2 2 2 2 2 Down Left 2 2 2 2 2 Down Sensory Light Touch EARNEST Noxious Stimuli Symmetric and intact bilaterally Temperature Not tested Pallesthesia Not tested Cerebellar FNF FREEDOM HKS Right Deferred Deferred Deferred Left Deferred Deferred Deferred Gait Deferred Labs: Results for orders placed or performed during the hospital encounter of 12/31/22 (from the past 24 hour(s)) CBC W AUTO DIFFERENTIAL Result Value Ref Range WBC 6.2 3.5 - 10.5 10??3/uL RBC 3.33 (L) 4.30 - 5.70 10??6/uL Hemoglobin 10.2 (L) 12.0 - 17.6 g/dL Hematocrit 31.2 (L) 35.2 - 51.7 % MCV 93.7 80.7 - 98.3 fL MCH 30.6 26.7 - 34.0 pg MCHC 32.7 30.8 - 35.9 g/dL RDW-SD 61.8 (H) 36.0 - 50.0 fL RDW-CV 18.1 (H) 11.2 - 14.8 % Platelet Count 193 150 - 400 10??3/uL MPV 13.0 (H) 9.4 - 12.9 fL nRBC Absolute 0.00 0 10??3/uL nRBC Auto 0.0 0 /100 WBC Neutrophils % 53.6 35.0 - 70.0 % Lymphocytes % 32.5 20.0 - 43.0 % Monocytes % 8.8 5.0 - 13.0 % Eosinophils % 4.3 0.0 - 6.0 % Basophil % 0.3 0.0 - 2.0 % Neutrophils Absolute 3.34 1.60 - 7.00 10??3/uL Lymphocyte Absolute 2.03 1.10 - 3.90 10??3/uL Monocytes Absolute 0.55 0.26 - 1.07 10??3/uL Eosinophils Absolute 0.27 0.00 - 0.47 10??3/uL Basophils Absolute 0.02 0.00 - 0.08 10??3/uL Immature Granulocytes % 0.5 0.0 - 1.0 % Immature Granulocytes Absolute 0.03 CALCIUM IONIZED WHOLE BLOOD Result Value Ref Range Calcium Ionized 1.27 mmol/L pH 7.44 7.35 - 7.45 pH Ionized Calcium pH Adjusted 1.29 1.19 - 1.34 mmol/L COMPREHENSIVE METABOLIC PANEL Result Value Ref Range BUN 16 7 - 26 mg/dL Creatinine 0.57 (L) 0.71 - 1.16 mg/dL Sodium 139 136 - 145 mmol/L Potassium 3.6 3.5 - 4.5 mmol/L Chloride 103 98 - 107 mmol/L CO2 27 22 - 29 mmol/L Glucose 94 70 - 115 mg/dL Calcium 9.0 8.4 - 10.2 mg/dL Protein Total 6.7 6.0 - 8.3 g/dL Albumin 2.6 (L) 3.4 - 5.0 g/dL Bilirubin Total 0.2 0.2 - 1.2 mg/dL Alkaline Phosphatase 103 40 - 150 U/L ALT 7 5 - 55 U/L AST 11 5 - 34 U/L Anion Gap 13 8 - 18 BUN/Creatinine Ratio 28 (H) 7 - 23 Osmolality Calculated 289 270 - 300 mOsm/kg Albumin/Globulin Ratio 0.6 (L) 1.1 - 2.3 eGFR by CKD-EPI >90 >=90 mL/min/1.73 m2 MAGNESIUM BLOOD Result Value Ref Range Magnesium 1.9 1.6 - 2.6 mg/dL PHOSPHORUS BLOOD Result Value Ref Range Phosphorus 2.9 2.8 - 5.1 mg/dL Assessment: 62 year old M with h/o refractory focal epilepsy seen at our epilepsy clinic transferred from OSH for ongoing repeated partial seizures. Initially had face twitching and blinking in our MICU that resolved with resuming his home AEDs and propofol drip. EEG concerning for electrographic and electroclinical seizures but last on 01/01 at 8:22AM. Triglycerides up to 700s but no prior labs were there to determine the trend but CK normal. Propofol weaned to off, no evidence of seizures on cEEG. Recommendations: 1) Keep Propofol off as tolerable, continue to monitor EEG for evidence of seizures. Please call ifconcerns for patient seizing. 2) Continue home Keppra 2g BID 3) Continue Depakene 750mg BID 4) Continue Onfi 20mg BID 5) Continue Vimpat 200mg BID 6) Rest per primary team Discussed Assessment and Plan with Attending Physician, Dr. Carney. Tejas Jeffries, DO PGY-1 Neurology I have seen and examined the patient with the resident and I agree with the findings and plan of care as documented by the resident. Date of Service: 01/04/2023 History Had strokes and refractory focal epilepsy on multiple antiseizure medicines. He has been transferred again from OSH because of ongoing repeated partial seizures. He also has a Pseudomonas pneumonia which has been treated with cefepime. He has completed the course of antibiotics. Last chest x-ray is clear. He has a tracheostomy and PEG and is on the ventilator. He has not had any further episodes of partial seizures and twitching of the right face and the continuous EEG also reports thatthe electrographic seizures have stopped. He continues on antiseizure medicines and and is being weaned off the IV propofol drip. Examination. Intubated ventilated sedated and unresponsive to painful stimuli. There are no visibletwitches of the eyes of the face at present. He is deeply sedated and not moving his limbs. Diagnosis. Multiple previous strokes and residual neurologic deficits. Refractory partial seizures in partial status epilepticus at present controlled with Keppra, Depakene, clobazam, Vimpat and propofol infusion. Plan. Continue present antiseizure medicines and clobazam 20 mg p.o. twice daily. Will receive lacosamide 200 mg twice daily we will continue the CEEG. We we will wean off and stop the propofol. Willcontinue his present dose of Keppra, Depakene, Onfi, Vimpat. Will follow Please see resident notes for details Crescencio Carney MD Attending Physician, Neurology * Zulma Michelle RCP - 01/04/2023 1:15 AM CDT Problem: Mechanical Ventilation Goal: Patent airway Outcome: Progressing Pt will be monitored for secretions and will be suctioned as needed to maintain patent airway. Problem: Mechanical Ventilation Goal: Tracheostomy will be managed safely Outcome: Progressing Trach will be secured via trach black device to keep airway in place. Size 6.0 Bivona trach secured via trach black. Vent circuit supported to prevent pulling on trach. * Rickie Salas MD - 01/03/2023 2:04 PM CDT MICU Progress Note 01/03/2023 2:04 PM Patient: Mojgan Tabor (:1960) Room: [facility] Admit Date: 12/31/2022. Hospital Day: 3 CC: Seizures Hospital Course: Mojgan Tabor is 62 year old male with history of epilepsy, chronic hypoxic respiratory failure (w/ trach), H/o multiple CVA's w/ residual deficits, PEG dependent, HTN, vascular dementia, alcohol use disorder. admitted on 12/31/2022 from OSH for continued seizures and concern for status epilepticus. ?? Initially admitted at [facility] on 12/18/22 for hypoxia and tachycardia. Found to have a RLLpneumonia. Sputum cultures were significant for Pseudomonas and Actinobacter resistant to multiple antibiotics. He completed a course of cefepime (EOT 12/25) and Bactrim (EOT 12/30) with improvement in leukocytosis and clinical symptoms. OSH initially planned to discharge on 12/28 however patient began having worsening seizures that were recurrent in nature. Home Clobazam was not on formulary at OSH. Neurology was consulted for concern of status epilepticus. Remainder of home Keppra 200mg BID, Valproate 750mg BID, and Lacosamide 200mg BID were continued. On 12/30 Neurology increased his Valproate to 750mg QID as patient continued to have recurrent seizures. He was transferred for higher level of care and continuous EEG given concern for subclinical seizures. ?? On presentation patient is unable to communicate given propofol drip. Per family he is normally A&Ox4. He has not had a seizure since last year until this previous admission per family. On admission VSS; satting well w/ FiO2 30%, PEEP 5. Trach and GJ tube in place; placement confirmed with radiology. Outside paredes exchanged. Initial ABG w/ pH 7.50, CO2 33, and O2 175. Repeat ABG following adju stment improved. w/ pH 7.44. Labs w/ K 4.8, Mg. 1.9, Phos 3.1, Lactate 1.6, WBC 6.8, Hg 10.3. Tropsnegative. CXR unremarkable; trach in proper position. KUB w/ well positioned GJ tube. In the MICU, neurology was consulted. Patient started on Propofol drip, hooked up to cEEG and restarted his home AEDs. EEG showed initially seizure like activity that with restarting of his meds, brain waves improved, significantly. Interval History: Patient still deeply unresponsive this AM, eyes twitching b/l otherwise AxOx0. Pt slightly hypothermic since 2am, pressures in the 80's to 90's overnight, off levo since 6PM last night. Objective: Vitals: 01/03/23 1000 01/03/23 1100 01/03/23 1200 01/03/23 1228 BP: 102/68 82/51 87/57 Pulse: 90 89 86 84 Resp: 12 12 12 Temp: 100 ??F (37.8 ??C) 99.7 ??F (37.6 ??C) 98.8 ??F (37.1 ??C) SpO2: 94% 92% 97% 97% Weight: Height: Intake/Output Summary (Last 24 hours) at 01/03/2023 1404 Last data filed at 01/03/2023 1200 Gross per 24 hour Intake 1029.55 ml Output 770 ml Net 259.55 ml SCMV S RR: 12 bpm S VT: 440 ML PEEP/CPAP: 5 cm H20 Mean Airway Pressure (cm H2O): 8 cm H2O O2 %: 35 % Physical Exam General - NAD, afebrile, non cachectic HEENT - NC/AT, clear conjunctivae, moist mucous membranes Neck - Supple, no LAD, no JVD Chest - CTAB no crackles or wheezes bilaterally. Trach in place to MV CV - RRR no murmurs, radial and DP pulses 2/4, good capillary refill Abdomen - Soft, NT/ND, +BS, no organomegaly. GJ tube in place. No surrounding erythema. Extremities - No edema or injury. Skin - No rashes, lesions or jaundice Neurologic - A&O x 0, twitches eyes spontaneously, slightly withdraws upper extremities to pain. Weak gag and strong cough. Psych - Unable to assess ?? Labs: CBC: Recent Labs Component Name 01/03/2333801/02/2333801/01/23421 WBC 6.3 5.9 6.5 HGB 9.7* 10.1* 10.0* HCT 28.9* 30.1* 31.4* BMP: Recent Labs Component Name 01/03/2333801/02/2333801/01/23421 NA 132* 132* 130* CL 100 100 101 CO2 25 25 27 BUN 18 21 19 CREATININE 0.61* 0.63* 0.61* CALCIUM 8.8 9.1 9.4 PHOS 3.5 3.8 3.4 Hepatic: Recent Labs Component Name 08/07/23 0339 08/06/23 0339 08/05/23 0422 ALT 8 37 8 AST 12 13 12 TBILI 0.2 0.2 0.2 PROT 7.0 7.0 6.7 ALB 2.5* 2.6* 2.6* ALKPHOS 103 95 92 Coagulation: Recent Labs Component Name 12/31/22205212/13/22 0146 12/09/22 1211 PT 13.7 13.3 14.3 INR 1.1 1.0 1.1 Micro: None Imaging: Imaging reviewed. Assessment: History of CVA (cerebrovascular accident) (POA: Yes) Hyperlipidemia (POA: Yes) Status epilepticus (CMS/HCC) (POA: Yes) Seizure disorder (CMS/HCC) (POA: Yes) Chronic respiratory failure with hypoxia (CMS/HCC) (POA: Yes) Dementia, vascular (CMS/HCC) (POA: Yes) PEG (percutaneous endoscopic gastrostomy) status (CMS/HCC) (POA: Yes) Tracheostomy in place (CMS/HCC) (POA: Yes) Anemia of chronic disease (POA: Yes) Acute encephalopathy (POA: Yes) PLAN: Neurological: RASS goal -1-0 #Focal Epilepsy #Status Epilepticus? In setting of cefepime use and discontinuation of Clobazam and acute PNA at OSH Concern for subclinical seizures and status epilepticus given continued seizures at OSH despite treatment Episodes of facial twitching. Home regimen: Keppra 2000mg BID, Clobazam 20mg BID, Lacosamide 200mg BID, Valproate 750mg BID (never increased to QID from OSH, pending neuro recs for this discrepancy) Valproate wnl Elevated Trig (700s), but normal CK PLAN: - Neurology consulted - On propofol drip at 40mcg, can wean off 5mcg/hour per neuro starting today - Continue home regimen as above. - cEEG - If patient continues to seize, please call/page general neurology and discuss adding a second granite cutter - On seizure and fall precaution - will clarify discrepancy of home dosing valproate regimen with neuro ?? #Acute Encephalopathy #Vascular dementia Likely secondary to continued seizures, sedation and previously likely secondary to infection. Baseline A&Ox3 per family. Ammonia,TSH, valproate wnl CT Head showed no acute findings PLAN: - Aspiration precaution Cardiovascular: MAP goal > 65 #Hypotension Likely 2/2 propofol, weaning today S/p 500cc LR PLAN: - on Levo, (not administered since yesterday around 6PM) -keep PICC line in place, multiple providers including anesthesia unable to place PIV, regular dressings changes for PICC line. ?? #HTN - Home regimen metoprolol 25mg BID - Holding home regimen 2/2 soft pressures ?? Pulmonary: SpO2 goal - 92% ?? #Chronic Hypoxic Respiratory Failure - Trach dependent on SMCV - Initial ABG w/ pH 7.50; improved to 7.44 following adjustments - CXR w/ stable trach placement. ?? #Aspiration Pneumonia- Resolved - S/p treatment for aspiration pneumonia as below ?? GI: #GJ tube dependence - KUB w/ evidence of proper placement - Tube feeds adjust daily to goal of 50mL ?? Renal: MARI, pt admitted to [facility] with chronic paredes that was exchanged on admission, keep in place atthis time ?? Endocrine: BGM goal 140-180 mg/dL ?? ID: #Aspiration Pneumonia- Resolved - Initially Hypoxic and tachycardic; CT Chest w/ consolidation of R lung and small pleural effusion. - Cultures at OSH w/ Pseudomonas and Acinetobacter resistant to multiple antibiotics - S/p treatment course w/ cefepime (EOT 12/25) and bactrim (EOT 12/30) - Afebrile on admission; no leukocytosis - CXR w/ no evidence of persistent consolidation. ?? Heme/Onc: #Anemia - Iron studies ordered - Vit B12?? FEN: -Monitor electrolytes QD, Replace K<4, Mg<2, Phos<3 ?? #Hyponatremia Volume down vs SIADH vs Adrenal Insufficiency S/p 500cc LR PLAN: - AM cortisol blood wnl Lines: PICC, Trach, Paredes, GJ tube Prophylaxis: Aspiration precautions w/ HOB elevation by 30 degrees GI prophyalxis w/ protonix DVT prophyalxis w/ SCDs, Lovenox Diet: NPO, TF Activity: Best Rest Disposition: ICU Monitoring Code Status: Full Rickie Salas MD Associated attestation - Ck Small MD - 01/04/2023 5:02 PM CDT I have seen and examined the patient with the resident and I agree with the findings and plan of care as documented by the resident. Date of Service: 01/03/2023 Ck Small MD * Felicity Lofton RN - 01/03/2023 11:57 AM CDT Care Coordination Initial Assessment Anticipated Discharge Date: 01/08/23 Transportation at Discharge: Anticipated level of care at discharge: Unknown Anticipated level of care provider: None Prior to admission level of care: Patient came from [facility]. He receives assistance with ADLs from the facility staff. Prior to admit provider: None Comments: Discharge needs pending at this time CM/SW will continue to follow ADVANCE DIRECTIVE INFORMATION: Advance Directive (Complete on patients 18 or older, emancipated minor, or under 18 with an AdvanceDirective) Advance Directive: No Advance Directive Information Given: Yes, information given Would you like assistance on completing and executing or revising an Advance Directive?: No Lives with: care facility Physical Limitations: wheel chair bound Requires Assistance With: SD's Preferred Pharmacy: [facility] [id number] [place] [address] [address] [facility] [id number] Advance Directive: No Advance Directive Information Given: Yes, information given Would you like assistance on completing and executing or revising an Advance Directive?: No READMISSION RISK SCORE is 26 at 11:57 AM 01/03/2023. Met with patient chart review Family Support (name and phone): Extended Emergency Contact Information Primary Emergency Contact: Adriane Hilliard Mobile Relation: Sister Garage Manager needed? No Secondary Emergency Contact: Amarjit Tabor [facility] Relation: Brother Patient or account executive sales representative requests care coordination reach out to family or caregiver listed above regarding discharge planning and at time of discharge? No Patient/Family provided with list of resources? Unknown Preferred Provider / High Quality Network List given?: Unknown Reason for provider choice: Unknown Diet Attendant Referral: Yes / return to facility Will continue to follow. For any questions or needs please contact: Manufacturing Engineering Manager Name/Phone number: Felicity Lofton, RN * Anna Aleman RN - 01/03/2023 11:37 AM CDT Problem: Mechanical Ventilation Goal: Patent airway Outcome: Progressing Goal: Oral health is maintained or improved Outcome: Progressing Goal: Tracheostomy will be managed safely Outcome: Progressing Goal: ET tube will be managed safely Outcome: Progressing Goal: Ability to express needs and understand communication Outcome: Progressing Goal: Mobility/activity is maintained at optimum level for patient Outcome: Progressing Problem: Oxygenation/Respiratory Function Goal: Patent airway Outcome: Progressing Goal: Respiratory rate/effort will be within specified limits Outcome: Progressing Problem: Care of Tracheostomy Goal: Tracheostomy tube and site will be maintained Outcome: Progressing Problem: Potential for Infection Goal: Insertion site without signs/symptoms of infection Outcome: Progressing Problem: Knowledge Deficit Goal: Patient/Significant other demonstrates understanding of Tracheostomy Outcome: Progressing Problem: Nutrient: Malnutrition Goal: Total intake will meet estimated nutrient needs Outcome: Progressing Problem: Skin Integrity Goal: Skin integrity is maintained or improved Outcome: Progressing * Crescencio Carney MD - 01/03/2023 11:31 AM CDT Neurology Progress Note Patient: Mojgan Tabor Room: 334 Age: [age] year old Subjective: Mojgan Tabor is a 62 year old male with history of refractory focal epilepsy, H/o multiple CVA's w/residual deficits (s/p Tracheostomy), PEG dependent, HTN, vascular dementia, alcohol use disorder. Admitted on 12/31/2022 from OSH for continued seizures and concern for status epilepticus. Initially admitted at [facility] on 12/18/22 for hypoxia and tachycardia. Found to have a RLLpneumonia. Sputum cultures were significant for Pseudomonas and Actinobacter resistant to multiple antibiotics. He completed a course of cefepime (EOT 12/25) and Bactrim (EOT 12/30) with improvement in leukocytosis and clinical symptoms. OSH initially planned to discharge on 12/28 however patient began having worsening seizures that were recurrent in nature. Home Clobazam was not on formulary at OSH. Neurology was consulted for concern of status epilepticus. Remainder of home Keppra 2gr BID, Valproate 750mg BID, and Lacosamide 200mg BID were continued. On 12/30 Neurology increased his Valproate to 750mg QID as patient continued to have recurrent seizures. He was transferred for higher level of care and continuous EEG given concern for subclinical seizures. In the MICU, patient started on Propofol drip, cEEG started and described seizure-like activity from 12/31 - 01/01. Home AEDs were restarted, seizures on cEEG were no longer identified from 01/01 - 01/03, waves consistent with encephalopathy present. Nurse reports stimulus induced eyelid twitching but no twitching of the face. Overnight: No events endorsed. Objective: BP 102/68 Pulse 90 Temp 100 ??F (37.8 ??C) Resp 12 Ht 1.778 m (5' 10 ) Wt 59.6 kg (131 lb6.3 oz) SpO2 94% Temp (30hrs) Max:100 ??F (37.8 ??C) Body mass index is 18.85 kg/m??. Exam: General: Con - NAD, afebrile Intubated but awake and interacting appropriately. Cortical Function Mental Status Sedated on Propofol, unable to follow commands. No reaction to pain stimulus Orientation EARNEST Language EARNEST Visual Ivan EARNEST Neglect EARNEST Cranial Nerves II Pupils 4 mm and bilaterally reactive to light. Fundoscopic exam not performed. VIII EARNEST. Hearingis intact bilaterally to finger rub. III/IV/ EARNEST. Previously extraocular muscles intact. No diplopia, ptosis, nystagmus or convergenceabnormalities noted. IX/X EARNEST V EARNEST. Previously facial sensation symmetric to light touch and intact bilaterally. Corneal reflex not examined. XI Head turning EARNEST but shoulder shrug are intact. VII No facial palsy noted but intubated. XII EARNEST Motor Function Movement No abnormalities noted Bulk No abnormalities noted Tone No abnormalities noted Proximal Upper Distal Upper Proximal Lower Distal Lower Right 5/5 5/5 5/5 5/5 Left 5/5 5/5 5/5 5/5 Muscle Stretch Reflexes BI TRI BR PAT ACH TOES Right 2 2 2 2 2 Down Left 2 2 2 2 2 Down Sensory Light Touch EARNEST Noxious Stimuli No withdrawal to pain Temperature Not tested Pallesthesia Not tested Cerebellar FNF FREEDOM HKS Right Deferred Deferred Deferred Left Deferred Deferred Deferred Gait Deferred Labs: Results for orders placed or performed during the hospital encounter of 12/31/22 (from the past 24 hour(s)) CBC W AUTO DIFFERENTIAL Result Value Ref Range WBC 6.3 3.5 - 10.5 10??3/uL RBC 3.11 (L) 4.30 - 5.70 10??6/uL Hemoglobin 9.7 (L) 12.0 - 17.6 g/dL Hematocrit 28.9 (L) 35.2 - 51.7 % MCV 92.9 80.7 - 98.3 fL MCH 31.2 26.7 - 34.0 pg MCHC 33.6 30.8 - 35.9 g/dL RDW-SD 60.5 (H) 36.0 - 50.0 fL RDW-CV 17.7 (H) 11.2 - 14.8 % Platelet Count 200 150 - 400 10??3/uL MPV Immature Platelet Fraction 15.4 (H) 1.1 - 6.2 % nRBC Absolute 0.00 0 10??3/uL nRBC Auto 0.0 0 /100 WBC Neutrophils % 59.5 35.0 - 70.0 % Lymphocytes % 30.8 20.0 - 43.0 % Monocytes % 5.6 5.0 - 13.0 % Eosinophils % 3.4 0.0 - 6.0 % Basophil % 0.2 0.0 - 2.0 % Neutrophils Absolute 3.73 1.60 - 7.00 10??3/uL Lymphocyte Absolute 1.93 1.10 - 3.90 10??3/uL Monocytes Absolute 0.35 0.26 - 1.07 10??3/uL Eosinophils Absolute 0.21 0.00 - 0.47 10??3/uL Basophils Absolute 0.01 0.00 - 0.08 10??3/uL Immature Granulocytes % 0.5 0.0 - 1.0 % Immature Granulocytes Absolute 0.03 CALCIUM IONIZED WHOLE BLOOD Result Value Ref Range Calcium Ionized 1.17 mmol/L pH 7.41 7.35 - 7.45 pH Ionized Calcium pH Adjusted 1.17 (L) 1.19 - 1.34 mmol/L COMPREHENSIVE METABOLIC PANEL Result Value Ref Range BUN 18 7 - 26 mg/dL Creatinine 0.61 (L) 0.71 - 1.16 mg/dL Sodium 132 (L) 136 - 145 mmol/L Potassium 3.7 3.5 - 4.5 mmol/L Chloride 100 98 - 107 mmol/L CO2 25 22 - 29 mmol/L Glucose 97 70 - 115 mg/dL Calcium 8.8 8.4 - 10.2 mg/dL Protein Total 7.0 6.0 - 8.3 g/dL Albumin 2.5 (L) 3.4 - 5.0 g/dL Bilirubin Total 0.2 0.2 - 1.2 mg/dL Alkaline Phosphatase 103 40 - 150 U/L ALT 8 5 - 55 U/L AST 12 5 - 34 U/L Anion Gap 11 8 - 18 BUN/Creatinine Ratio 30 (H) 7 - 23 Osmolality Calculated 276 270 - 300 mOsm/kg Albumin/Globulin Ratio 0.6 (L) 1.1 - 2.3 eGFR by CKD-EPI >90 >=90 mL/min/1.73 m2 MAGNESIUM BLOOD Result Value Ref Range Magnesium 1.8 1.6 - 2.6 mg/dL PHOSPHORUS BLOOD Result Value Ref Range Phosphorus 3.5 2.8 - 5.1 mg/dL Assessment: 62 year old M with h/o refractory focal epilepsy seen at our epilepsy clinic transferred from OSH for ongoing repeated partial seizures. Initially had face twitching and blinking in our MICU that resolved with resuming his home AEDs and propofol drip. EEG concerning for electrographic and electroclinical seizures but last on 01/01 at 8:22AM. Triglycerides up to 700s but no prior labs were there to determine the trend but CK normal. Recommendations: 1) Wean Propofol 5 mcg/hr as tolerable, continue to monitor EEG for evidence of seizures 2) Continue home Keppra 2g BID 3) Continue Depakene 750mg BID 4) Continue Onfi 20mg BID 5) Continue Vimpat 200mg BID 6) Rest per primary team Discussed Assessment and Plan with Attending Physician, Dr. Carney. Tejas Jeffries, DO PGY-1 Neurology I have seen and examined the patient with the resident and I agree with the findings and plan of care as documented by the resident. Date of Service: 01/03/2023 History Had strokes and refractory focal epilepsy on multiple antiseizure medicines. He has been transferred again from OSH because of ongoing repeated partial seizures. He also has a Pseudomonas pneumonia which has been treated with cefepime. He has completed the course of antibiotics. Last chest x-ray is clear. He has a tracheostomy and PEG and is on the ventilator. He has not had any further episodes of partial seizures and twitching of the right face and the continuous EEG also reports thatthe last electrographic seizure was like at 8 AM. He continues on antiseizure medicines and IV propofol drip. Examination. Intubated ventilated sedated and unresponsive to painful stimuli. There are no visibletwitches of the eyes of the face at present. He is deeply sedated and not moving his limbs. Diagnosis. Multiple previous strokes and residual neurologic deficits. Refractory partial seizures in partial status epilepticus at present controlled with Keppra, Depakene, clobazam, Vimpat and propofol infusion. Plan. Continue present antiseizure medicines and clobazam 20 mg p.o. twice daily. Will receive lacosamide 200 mg twice daily we will continue the CEEG. We we will try to reduce the propofol by 5 mcg/h watching the EEG and his clinical response for seizures. Will continue his present dose of Keppra,Depakene, Onfi, Vimpat. Please see resident notes for details Crescencio Carney MD Attending Physician, Neurology * Elmo Caicedo SLP - 01/03/2023 11:30 AM CDT [facility] Department of Physical Medicine & Rehabilitation Progress Note Patient: Mojgan Tabor [facility] Record Number: [id number] Date of : 1960 Age: [age] year old INTERIOR DESIGN CONSULTANT consult received and acknowledged. Patient remains on vent support at this time. Please re-consult after patient has started trach collar trials. Elmo Ansari M.A., [facility]-INTERIOR DESIGN CONSULTANT Speech Language Pathologist [phone] * Eric Lira RCP - 01/03/2023 3:14 AM CDT Problem: Mechanical Ventilation Goal: Ability to express needs and understand communication Outcome: Not Progressing Problem: Mechanical Ventilation Goal: Patent airway Outcome: Progressing Problem: Mechanical Ventilation Goal: Oral health is maintained or improved Outcome: Progressing Problem: Mechanical Ventilation Goal: Tracheostomy will be managed safely Outcome: Progressing Problem: Mechanical Ventilation Goal: Mobility/activity is maintained at optimum level for patient Outcome: Progressing Problem: Oxygenation/Respiratory Function Goal: Patent airway Outcome: Progressing * Blair Cagle MD - 01/02/2023 2:11 PM CDT MICU ATTENDING PROGRESS NOTE The patient's history was reviewed with the MICU Resident/s. Patient was seen and examined with theMICU Team. I agree with the findings and assessment and recommendations except as follows: The patient is a 62 year old male who was admitted to the MICU for status epilepticus. S> The patient had minimal eye twitching on propofol overnight. The patient was weaned off norepinephrine IV overnight. He was maintained on volume assist control overnight. The patient had no other new acute events overnight. This morning, the patient was unable to communicate his symptoms due to sedation. Past Medical History: Diagnosis Date ??? Cerebrovascular disease ??? HTN (hypertension) ??? Seizure (CMS/HCC) Current Facility-Administered Medications Medication ??? 0.9% NaCl injection 3 mL And ??? 0.9% NaCl injection 1-10 mL ??? artificial tears ophthalmic ointment ??? aspirin chew tablet 81 mg ??? chlorhexidine (Peridex) 0.12 % oral solution 15 mL ??? cloBAZam (Onfi) tablet 20 mg ??? enoxaparin (Lovenox) injection 40 mg ??? iopamidol (Isovue 300) 61 % contrast 30 mL ??? iron sucrose (Venofer) injection 200 mg ??? lacosamide (Vimpat) tablet 200 mg ??? levETIRAcetam (Keppra) tablet 2,000 mg ??? norepinephrine (Levophed) 8 mg/250 ml D5 infusion premix ??? pantoprazole (Protonix) injection 40 mg ??? propofol (Diprivan) infusion ??? valproic acid (Depakene) solution 750 mg Allergy: Allergies Allergen Reactions ??? Clonazepam Psychiatric hallucinations O> PE: BP (!) 72/53 Pulse 58 Temp (!) 95.2 ??F (35.1 ??C) Resp 12 Ht 1.778 m (5' 10 ) Wt 59.6 kg (131 lb 6.3 oz) SpO2 99% General: The patient is sedatedt and not in cardiopulmonary distress. [place] and anicteric conjunctivae. Abdomen: Soft and nontender. No cyanosis. No clubbing. No edema. I - O = +199.4 mL Laboratory tests, imaging studies, and other ancillary test results [facility] reviewed withthe residents. EEG: low amplitude bursts with suppression Latest Reference Range & Units Most Recent Ferritin 22 - 275 ng/mL 55 01/02/23 03:39 Folate 7.0 - 31.4 ng/mL 14.7 01/02/23 03:39 Iron 50 - 175 ug/dL 53 01/02/23 03:39 TIBC Calculated 240 - 450 ug/dL 319 01/02/23 03:39 Transferrin 174 - 382 mg/dL 255 01/02/23 03:39 Transferrin Saturation % 16 - 50 % 17 01/02/23 03:39 Vitamin B12 213 - 816 pg/mL 1,814 (H) 01/02/23 03:39 (H): Data is abnormally high Latest Reference Range & Units Most Recent Sodium 136 - 145 mmol/L 132 (L) 01/02/23 03:39 Potassium 3.5 - 4.5 mmol/L 4.2 01/02/23 03:39 Chloride 98 - 107 mmol/L 100 01/02/23 03:39 CO2 22 - 29 mmol/L 25 01/02/23 03:39 Anion Gap 8 - 18 11 01/02/23 03:39 BUN 7 - 26 mg/dL 21 01/02/23 03:39 Creatinine 0.71 - 1.16 mg/dL 0.63 (L) 01/02/23 03:39 eGFR >=90 mL/min/1.73 m2 >90 01/02/23 03:39 Glucose 70 - 115 mg/dL 80 01/02/23 03:39 Calcium 8.4 - 10.2 mg/dL 9.1 01/02/23 03:39 Ionized Calcium mmol/L 1.24 01/02/23 03:39 Calcium Ionized Adjusted 1.19 - 1.34 mmol/L 1.26 01/02/23 03:39 Magnesium 1.6 - 2.6 mg/dL 1.8 01/02/23 03:39 Phosphorus 2.8 - 5.1 mg/dL 3.8 01/02/23 03:39 BUN/Creatinine Ratio 7 - 33 (H) 01/02/23 03:39 Alkaline Phosphatase 40 - 150 U/L 95 01/02/23 03:39 ALT 5 - 55 U/L 37 01/02/23 03:39 AST 5 - 34 U/L 13 01/02/23 03:39 Protein Total 6.0 - 8.3 g/dL 7.0 01/02/23 03:39 Albumin 3.4 - 5.0 g/dL 2.6 (L) 01/02/23 03:39 Bilirubin Total 0.2 - 1.2 mg/dL 0.2 01/02/23 03:39 Ammonia <=72 umol/L 31 01/01/23 00:46 Bilirubin Direct 0.1 - 0.5 mg/dL 0.2 06/30/22 10:39 Bilirubin Indirect Unconjugated Bilirubin is a calculated value: Reference ranges have not been established. mg/dL 0.1 06/30/22 10:39 Lipase 8 - 78 U/L 18 06/27/22 22:15 Osmolality Calculated 270 - 300 mOsm/kg 276 01/02/23 03:39 Albumin/Globulin Ratio 1.1 - 2.3 0.6 (L) 01/02/23 03:39 Triglycerides <150 mg/dL 736 (H) 01/02/23 03:39 Procalcitonin <=0.10 ng/mL <0.02 11/26/22 19:55 Lactic Acid-Stat <=2.0 mmol/L 1.6 12/31/22 20:53 PT 12.1 - 14.8 Seconds 13.7 12/31/22 20:53 INR See Comment 1.1 12/31/22 20:53 Cortisol AM 3.7 - 19.4 ug/dL 7.8 01/02/23 03:39 (L): Data is abnormally low (H): Data is abnormally high PROBLEM LIST FOR [facility] DOCUMENTATION: History of CVA (cerebrovascular accident) (POA: Yes) Hyperlipidemia (POA: Yes) Status epilepticus (CMS/HCC) (POA: Yes) Seizure disorder (CMS/HCC) (POA: Yes) Chronic respiratory failure with hypoxia (CMS/HCC) (POA: Yes) Dementia, vascular (CMS/HCC) (POA: Yes) PEG (percutaneous endoscopic gastrostomy) status (CMS/HCC) (POA: Yes) Tracheostomy in place (CMS/HCC) (POA: Yes) Anemia of chronic disease (POA: Yes) Acute encephalopathy (POA: Yes) ASSESSMENT: 1. Seizure disorder with status epilepticus, controlled with the addition of propofol to seizure regimen 2. History of cerebrovascular disease 3. Chronic hypercapnic respiratory failure due to ? 4. S/p tracheostomy 5. Vasoplegic shock due to propofol 6. History of systemic hypertension 7. Undernutrition with protein-calorie malnutrition 8. S/p PEG 9. Hyponatremia, consider SIADH? 10. Hypertriglyceridemia likely due to propofol 11. Anemia, iron deficiency ? PLAN: 1. Neurology Service comanaging seizure d/o 2. Seizure regimen: A. Propofol for 48 hours - prolonged use can cause hypertriglyceridemia and increase risk of acute pancreatitis B. May give midazolam IV prn for breakthrough seizure C. Levetiracetam D. Clobazam E. Lacosamide F. Valproic acid 3. CVD regimen: A. Start ASA 81 mg po daily if no contraindication B. Consider atorvastatin 4. Patient is off norepinephrine IV for hypotension. 5. Volume assist control: tidal volume = 450 ml, PEEP = 8 cmH2O, BR = 12/min 6. Tube feed 7. On pantoprazole for GI prophylaxis 8. Administer iron sucrose 200 mg IV daily for 5 days (total dose = 1000 mg). 9. Consider ACTH stim test if hypotension recurs 10. Enoxaparin 40 mg daily for DVT prophylaxis Blair Cagle MD, [facility], FCCP, [facility] Manager Document, [facility] Professor of Internal Medicine Adjunct Arbitrator of Neurology Division of Pulmonary, Critical Care, and Sleep Medicine [facility] * Harris Garrett MD - 01/02/2023 1:00 PM CDT MICU Progress Note 01/02/2023 1:00 PM Patient: Mojgan Tabor (:1960) Room: [facility]/01 Admit Date: 12/31/2022. Hospital Day: 2 CC: Seizures Hospital Course: Mojgan Tabor is 62 year old male with history of epilepsy, chronic hypoxic respiratory failure (w/ trach), H/o multiple CVA's w/ residual deficits, PEG dependent, HTN, vascular dementia, alcohol use disorder. admitted on 12/31/2022 from OSH for continued seizures and concern for status epilepticus. ?? Initially admitted at [facility] on 12/18/22 for hypoxia and tachycardia. Found to have a RLLpneumonia. Sputum cultures were significant for Pseudomonas and Actinobacter resistant to multiple antibiotics. He completed a course of cefepime (EOT 12/25) and Bactrim (EOT 12/30) with improvement in leukocytosis and clinical symptoms. OSH initially planned to discharge on 12/28 however patient began having worsening seizures that were recurrent in nature. Home Clobazam was not on formulary at OSH. Neurology was consulted for concern of status epilepticus. Remainder of home Keppra 200mg BID, Valproate 750mg BID, and Lacosamide 200mg BID were continued. On 12/30 Neurology increased his Valproate to 750mg QID as patient continued to have recurrent seizures. He was transferred for higher level of care and continuous EEG given concern for subclinical seizures. ?? On presentation patient is unable to communicate given propofol drip. Per family he is normally A&Ox4. He has not had a seizure since last year until this previous admission per family. On admission VSS; satting well w/ FiO2 30%, PEEP 5. Trach and GJ tube in place; placement confirmed with radiology. Outside paredes exchanged. Initial ABG w/ pH 7.50, CO2 33, and O2 175. Repeat ABG following adju stment improved. w/ pH 7.44. Labs w/ K 4.8, Mg. 1.9, Phos 3.1, Lactate 1.6, WBC 6.8, Hg 10.3. Tropsnegative. CXR unremarkable; trach in proper position. KUB w/ well positioned GJ tube. In the MICU, neurology was consulted. Patient started on Propofol drip, hooked up to cEEG and restarted his home AEDs. EEG showed initially seizure like activity that with restarting of his meds, brain waves improved, significantly. Interval History: Patient having facial twitching in AM Per neuro home AEDs started with the remain recs followed. Propofol drip increased to 40mcg Objective: Vitals: 01/02/23 1130 01/02/23 1145 01/02/23 1200 01/02/23 1252 BP: 90/64 (!) 79/56 (!) 72/53 Pulse: 60 67 67 58 Resp: 12 12 12 Temp: (!) 95 ??F (35 ??C) (!) 95 ??F (35 ??C) (!) 95.2 ??F (35.1 ??C) SpO2: 100% 98% 98% 99% Weight: Height: Intake/Output Summary (Last 24 hours) at 01/02/2023 1300 Last data filed at 01/02/2023 1200 Gross per 24 hour Intake 1144.76 ml Output 1045 ml Net 99.76 ml SCMV S RR: 12 bpm S VT: 440 ML PEEP/CPAP: 5 cm H20 Mean Airway Pressure (cm H2O): 8.1 cm H2O O2 %: 20 % Physical Exam General - NAD, afebrile, non cachectic HEENT - NC/AT, clear conjunctivae, moist mucous membranes Neck - Supple, no LAD, no JVD Chest - CTAB no crackles or wheezes bilaterally. Trach in place to MV CV - RRR no murmurs, radial and DP pulses 2/4, good capillary refill Abdomen - Soft, NT/ND, +BS, no organomegaly. GJ tube in place. No surrounding erythema. Extremities - No edema or injury. Skin - No rashes, lesions or jaundice Neurologic - A&O x 0, opens eyes spontaneously, slightly withdraws upper extremities to pain. Weak gag and strong cough. Psych - Unable to assess ?? Labs: CBC: Recent Labs Component Name 01/02/23 0339 01/01/23 0422 12/31/223 WBC 5.9 6.5 6.8 HGB 10.1* 10.0* 10.3* HCT 30.1* 31.4* 31.1* BMP: Recent Labs Component Name 01/02/2333801/01/2342112/31/222055 NA 132* 130* 131* CL 100 101 102 CO2 25 27 24 BUN 21 19 19 CREATININE 0.63* 0.61* 0.60* CALCIUM 9.1 9.4 9.6 PHOS 3.8 3.4 3.1 Hepatic: Recent Labs Component Name 01/02/2333801/01/2342112/31/222055 ALT 37 8 8 AST 13 12 12 TBILI 0.2 0.2 0.2 PROT 7.0 6.7 6.9 ALB 2.6* 2.6* 2.7* ALKPHOS 95 92 100 Coagulation: Recent Labs Component Name 12/31/22205212/13/22 0146 12/09/22 1211 PT 13.7 13.3 14.3 INR 1.1 1.0 1.1 Micro: None Imaging: Imaging reviewed. Assessment: History of CVA (cerebrovascular accident) (POA: Yes) Hyperlipidemia (POA: Yes) Status epilepticus (CMS/HCC) (POA: Yes) Seizure disorder (CMS/HCC) (POA: Yes) Chronic respiratory failure with hypoxia (CMS/HCC) (POA: Yes) Dementia, vascular (CMS/HCC) (POA: Yes) PEG (percutaneous endoscopic gastrostomy) status (CMS/HCC) (POA: Yes) Tracheostomy in place (CMS/HCC) (POA: Yes) Anemia of chronic disease (POA: Yes) Acute encephalopathy (POA: Yes) PLAN: Neurological: RASS goal -1-0 #Focal Epilepsy #Status Epilepticus? In setting of cefepime use and discontinuation of Clobazam and acute PNA at OSH Concern for subclinical seizures and status epilepticus given continued seizures at OSH despite treatment Episodes of facial twitching. Home regimen: Keppra 2000mg BID, Clobazam 20mg BID, Lacosamide 200mg BID, Valproate 750mg BID Valproate wnl Elevated Trig (700s), but normal CK PLAN: - Neurology consulted - On propofol drip at 40mcg, continue for 48H total - Continue home regimen as above. - cEEG - If patient continues to seize, please call/page general neurology and discuss adding a second granite cutter - On seizure and fall precaution ?? #Acute Encephalopathy #Vascular dementia Likely secondary to continued seizures, sedation and previously likely secondary to infection. Baseline A&Ox3 per family. Ammonia,TSH, valproate wnl CT Head showed no acute findings PLAN: - Aspiration precaution Cardiovascular: MAP goal > 65 #Hypotension Likely 2/2 propofol S/p 500cc LR PLAN: - on Levo ?? #HTN - Home regimen metoprolol 25mg BID - Holding home regimen 2/2 soft pressures ?? Pulmonary: SpO2 goal - 92% ?? #Chronic Hypoxic Respiratory Failure - Trach dependent on SMCV - Initial ABG w/ pH 7.50; improved to 7.44 following adjustments - CXR w/ stable trach placement. ?? #Aspiration Pneumonia- Resolved - S/p treatment for aspiration pneumonia as below ?? GI: #GJ tube dependence - KUB w/ evidence of proper placement - Tube feeds adjust daily to goal of 50mL ?? Renal: MARI ?? Endocrine: BGM goal 140-180 mg/dL ?? ID: #Aspiration Pneumonia- Resolved - Initially Hypoxic and tachycardic; CT Chest w/ consolidation of R lung and small pleural effusion. - Cultures at OSH w/ Pseudomonas and Acinetobacter resistant to multiple antibiotics - S/p treatment course w/ cefepime (EOT 12/25) and bactrim (EOT 12/30) - Afebrile on admission; no leukocytosis - CXR w/ no evidence of persistent consolidation. ?? Heme/Onc: #Anemia - Iron studies ordered - Vit B12?? FEN: -Monitor electrolytes QD, Replace K<4, Mg<2, Phos<3 ?? #Hyponatremia Volume down vs SIADH vs Adrenal Insufficiency S/p 500cc LR PLAN: - AM cortisol blood Lines: PICC, Trach, Paredes, GJ tube Prophylaxis: Aspiration precautions w/ HOB elevation by 30 degrees GI prophyalxis w/ protonix DVT prophyalxis w/ SCDs, Lovenox Diet: NPO, TF Activity: Best Rest Disposition: ICU Monitoring Code Status: Full Harris Garrett MD * Crescencio Carney MD - 01/02/2023 11:27 AM CDT Neurology Progress Note Patient: Mojgan Tabor Room: 334 Age: [age] year old Subjective: Mojgan Tabor is a 62 year old male with history of refractory focal epilepsy, H/o multiple CVA's w/residual deficits (s/p Tracheostomy), PEG dependent, HTN, vascular dementia, alcohol use disorder. admitted on 12/31/2022 from OSH for continued seizures and concern for status epilepticus. Initially admitted at [facility] on 12/18/22 for hypoxia and tachycardia. Found to have a RLLpneumonia. Sputum cultures were significant for Pseudomonas and Actinobacter resistant to multiple antibiotics. He completed a course of cefepime (EOT 12/25) and Bactrim (EOT 12/30) with improvement in leukocytosis and clinical symptoms. OSH initially planned to discharge on 12/28 however patient began having worsening seizures that were recurrent in nature. Home Clobazam was not on formulary at OSH. Neurology was consulted for concern of status epilepticus. Remainder of home Keppra 2gr BID, Valproate 750mg BID, and Lacosamide 200mg BID were continued. On 12/30 Neurology increased his Valproate to 750mg QID as patient continued to have recurrent seizures. He was transferred for higher level of care and continuous EEG given concern for subclinical seizures. In the MICU, patient started on Propofol drip, hooked up to cEEG and restarted his home AEDs. EEG showed initially seizure like activity that with restarting of his meds, brain waves improved, significantly. Overnight: No events endorsed. Objective: BP 96/64 Pulse 62 Temp (!) 95.2 ??F (35.1 ??C) Resp 12 Ht 1.778 m (5' 10 ) Wt 59.6 kg (131 lb 6.3 oz) SpO2 100% Temp (30hrs) Max:98.7 ??F (37.1 ??C) Body mass index is 18.85 kg/m??. Exam: General: Con - NAD, afebrile Intubated but awake and interacting appropriately. Cortical Function Mental Status Awake, alert, follows commands Orientation EARNEST Language EARNEST Visual Ivan Intact bilaterally to confrontation Neglect No visual neglect noted, no tactile neglect noted Cranial Nerves II Pupils 4 mm and bilaterally reactive to light. Fundoscopic exam not performed. VIII Hearing is intact bilaterally to finger rub. III/IV/ Extraocular muscles intact. No diplopia, ptosis, nystagmus or convergence abnormalities noted. IX/X EARNEST V Facial sensation symmetric to light touch and intact bilaterally. Corneal reflex not examined. XIHead turning EARNEST but shoulder shrug are intact. VII No facial palsy noted but intubated. XII EARNEST Motor Function Movement No abnormalities noted Bulk No abnormalities noted Tone No abnormalities noted Proximal Upper Distal Upper Proximal Lower Distal Lower Right 5/5 5/5 5/5 5/5 Left 5/5 5/5 5/5 5/5 Muscle Stretch Reflexes BI TRI BR PAT ACH TOES Right 2 2 2 2 2 Down Left 2 2 2 2 2 Down Sensory Light Touch Symmetric and intact bilaterally Noxious Stimuli Symmetric and intact bilaterally Temperature Not tested Pallesthesia Not tested Cerebellar FNF FREEDOM HKS Right Intact Deferred Deferred Left Intact Deferred Deferred Gait Deferred Labs: Results for orders placed or performed during the hospital encounter of 12/31/22 (from the past 24 hour(s)) CBC W AUTO DIFFERENTIAL Result Value Ref Range WBC 5.9 3.5 - 10.5 10??3/uL RBC 3.20 (L) 4.30 - 5.70 10??6/uL Hemoglobin 10.1 (L) 12.0 - 17.6 g/dL Hematocrit 30.1 (L) 35.2 - 51.7 % MCV 94.1 80.7 - 98.3 fL MCH 31.6 26.7 - 34.0 pg MCHC 33.6 30.8 - 35.9 g/dL RDW-SD 60.2 (H) 36.0 - 50.0 fL RDW-CV 17.5 (H) 11.2 - 14.8 % Platelet Count 212 150 - 400 10??3/uL MPV 12.4 9.4 - 12.9 fL nRBC Absolute 0.00 0 10??3/uL nRBC Auto 0.0 0 /100 WBC Neutrophils % 54.5 35.0 - 70.0 % Lymphocytes % 34.7 20.0 - 43.0 % Monocytes % 7.5 5.0 - 13.0 % Eosinophils % 2.7 0.0 - 6.0 % Basophil % 0.3 0.0 - 2.0 % Neutrophils Absolute 3.18 1.60 - 7.00 10??3/uL Lymphocyte Absolute 2.03 1.10 - 3.90 10??3/uL Monocytes Absolute 0.44 0.26 - 1.07 10??3/uL Eosinophils Absolute 0.16 0.00 - 0.47 10??3/uL Basophils Absolute 0.02 0.00 - 0.08 10??3/uL Immature Granulocytes % 0.3 0.0 - 1.0 % Immature Granulocytes Absolute 0.02 CALCIUM IONIZED WHOLE BLOOD Result Value Ref Range Calcium Ionized 1.24 mmol/L pH 7.43 7.35 - 7.45 pH Ionized Calcium pH Adjusted 1.26 1.19 - 1.34 mmol/L COMPREHENSIVE METABOLIC PANEL Result Value Ref Range BUN 21 7 - 26 mg/dL Creatinine 0.63 (L) 0.71 - 1.16 mg/dL Sodium 132 (L) 136 - 145 mmol/L Potassium 4.2 3.5 - 4.5 mmol/L Chloride 100 98 - 107 mmol/L CO2 25 22 - 29 mmol/L Glucose 80 70 - 115 mg/dL Calcium 9.1 8.4 - 10.2 mg/dL Protein Total 7.0 6.0 - 8.3 g/dL Albumin 2.6 (L) 3.4 - 5.0 g/dL Bilirubin Total 0.2 0.2 - 1.2 mg/dL Alkaline Phosphatase 95 40 - 150 U/L ALT 37 5 - 55 U/L AST 13 5 - 34 U/L Anion Gap 11 8 - 18 BUN/Creatinine Ratio 33 (H) 7 - 23 Osmolality Calculated 276 270 - 300 mOsm/kg Albumin/Globulin Ratio 0.6 (L) 1.1 - 2.3 eGFR by CKD-EPI >90 >=90 mL/min/1.73 m2 MAGNESIUM BLOOD Result Value Ref Range Magnesium 1.8 1.6 - 2.6 mg/dL PHOSPHORUS BLOOD Result Value Ref Range Phosphorus 3.8 2.8 - 5.1 mg/dL TRIGLYCERIDES BLOOD Result Value Ref Range Triglycerides 736 (H) <150 mg/dL IRON + TRANSFERRIN PANEL Result Value Ref Range Iron 53 50 - 175 ug/dL Transferrin 255 174 - 382 mg/dL Transferrin Saturation % 17 16 - 50 % TIBC Calculated 319 240 - 450 ug/dL FERRITIN Result Value Ref Range Ferritin 55 22 - 275 ng/mL FOLATE Result Value Ref Range Folate 14.7 7.0 - 31.4 ng/mL VITAMIN B12 Result Value Ref Range Vitamin B12 1,814 (H) 213 - 816 pg/mL CORTISOL BLOOD AM Result Value Ref Range Cortisol AM 7.8 3.7 - 19.4 ug/dL CK BLOOD Result Value Ref Range CK Total 51 30 - 200 U/L Assessment: 62 year old M with h/o refractory focal epilepsy seen at our epilepsy clinic transferred from OSH for ongoing repeated partial seizures. Initially had face twitching and blinking in our MICU that resolved with resuming his home AEDs and propofol drip. EEG concerning for electrographic and electroclinical seizures but last on 01/01 at 8:22AM. Triglycerides up to 700s but no prior labs were there to determine the trend but CK normal. Recommendations: 1) Continue home Keppra 2gr BID 2) Continue Depakene 750mg BID, 3) Continue Onfi 40mg tid but will touch base with Dr. Raymundo regarding modifications of same today 4) Continue Vimpat 200mg BID 5) Will continue propofol for 48 hrs total but will need to keep an eye on any concerns of proprofol infusion. 6) Rest per the primary team Discussed Assessment and Plan with Attending Physician, Dr. Carney. Renee Bruce MD PGY-3 Pediatric Neurology I have seen and examined the patient with the resident and I agree with the findings and plan of care as documented by the resident. Date of Service: 01/02/2023 History is strokes and refractory focal epilepsy on multiple antiseizure medicines. He has been transferred again from OSH because of ongoing repeated partial seizures. He also has a Pseudomonas pneumonia which has been treated with cefepime. He has completed the course of antibiotics. Last chest x-ray is clear. He has a tracheostomy and PEG and is on the ventilator. He has not had any further episodes of partial seizures and twitching of the right face and the continuous EEG also reports that the last electrographic seizure was like at 8 AM yesterday. He continues on antiseizure medicines and IV propofol drip. Examination. Intubated ventilated sedated and unresponsive to painful stimuli. There are no visibletwitches of the eyes of the face at present. He is deeply sedated and not moving his limbs. Diagnosis. Multiple previous strokes and residual neurologic deficits. Refractory partial seizures in partial status epilepticus at present controlled with Keppra, Depakene, clobazam, Vimpat and propofol infusion. Plan. Continue present antiseizure medicines and clobazam 20 mg p.o. twice daily. Will receive lacosamide 200 mg twice daily we will continue the CEEG. If he remains free of seizures clinically and per EEG we may consider reduction in the propofol dose tomorrow. Please see resident notes for details Crescencio Carney MD Attending Physician, Neurology * Harris Garrett MD - 01/01/2023 5:58 PM CDT MICU Progress Note 01/01/2023 5:58 PM Patient: Mojgan Tabor (:1960) Room: [facility] Admit Date: 12/31/2022. Hospital Day: 1 CC: Seizures Hospital Course: Mojgan Tabor is 62 year old male with history of epilepsy, chronic hypoxic respiratory failure (w/ trach), H/o multiple CVA's w/ residual deficits, PEG dependent, HTN, vascular dementia, alcohol use disorder. admitted on 12/31/2022 from OSH for continued seizures and concern for status epilepticus. ?? Initially admitted at [facility] on 12/18/22 for hypoxia and tachycardia. Found to have a RLLpneumonia. Sputum cultures were significant for Pseudomonas and Actinobacter resistant to multiple antibiotics. He completed a course of cefepime (EOT 12/25) and Bactrim (EOT 12/30) with improvement in leukocytosis and clinical symptoms. OSH initially planned to discharge on 12/28 however patient began having worsening seizures that were recurrent in nature. Home Clobazam was not on formulary at OSH. Neurology was consulted for concern of status epilepticus. Remainder of home Keppra 200mg BID, Valproate 750mg BID, and Lacosamide 200mg BID were continued. On 12/30 Neurology increased his Valproate to 750mg QID as patient continued to have recurrent seizures. He was transferred for higher level of care and continuous EEG given concern for subclinical seizures. ?? On presentation patient is unable to communicate given propofol drip. Per family he is normally A&Ox4. He has not had a seizure since last year until this previous admission per family. On admission VSS; satting well w/ FiO2 30%, PEEP 5. Trach and GJ tube in place; placement confirmed with radiology. Outside paredes exchanged. Initial ABG w/ pH 7.50, CO2 33, and O2 175. Repeat ABG following adju stment improved. w/ pH 7.44. Labs w/ K 4.8, Mg. 1.9, Phos 3.1, Lactate 1.6, WBC 6.8, Hg 10.3. Tropsnegative. CXR unremarkable; trach in proper position. KUB w/ well positioned GJ tube. In the MICU, neurology was consulted. Patient started on Propofol drip, hooked up to cEEG and restarted his home AEDs. EEG showed initially seizure like activity that with restarting of his meds, brain waves improved, significantly. Interval History: Patient having facial twitching in AM Per neuro home AEDs started with the remain recs followed. Propofol drip increased to 40mcg Objective: Vitals: 01/01/23 1615 01/01/23 1630 01/01/23 1645 01/01/23 1700 BP: 113/78 103/69 103/70 102/78 Pulse: 67 67 67 67 Resp: 12 12 12 12 Temp: SpO2: 100% 99% 100% 100% Weight: Height: Intake/Output Summary (Last 24 hours) at 01/01/2023 1806 Last data filed at 01/01/2023 1600 Gross per 24 hour Intake 701.86 ml Output 1130 ml Net -428.14 ml SCMV S RR: 12 bpm S VT: 440 ML PEEP/CPAP: 5 cm H20 Mean Airway Pressure (cm H2O): 8.1 cm H2O O2 %: 20 % Physical Exam General - NAD, afebrile, non cachectic HEENT - NC/AT, clear conjunctivae, moist mucous membranes Neck - Supple, no LAD, no JVD Chest - CTAB no crackles or wheezes bilaterally. Trach in place to MV CV - RRR no murmurs, radial and DP pulses 2/4, good capillary refill Abdomen - Soft, NT/ND, +BS, no organomegaly. GJ tube in place. No surrounding erythema. Extremities - No edema or injury. Skin - No rashes, lesions or jaundice Neurologic - A&O x 0, opens eyes spontaneously, slightly withdraws upper extremities to pain. Weak gag and strong cough. Psych - Unable to assess ?? Labs: CBC: Recent Labs Component Name 01/01/2342112/31/22205212/16/22348 WBC 6.5 6.8 11.2* HGB 10.0* 10.3* 12.1 HCT 31.4* 31.1* 38.2 BMP: Recent Labs Component Name 01/01/2342112/31/22205512/16/22348 NA 130* 131* 133* CL 101 102 105 CO2 27 24 21* BUN 19 19 12 CREATININE 0.61* 0.60* 0.52* CALCIUM 9.4 9.6 9.3 PHOS 3.4 3.1 2.1* Hepatic: Recent Labs Component Name 01/01/2342112/31/22205512/16/2234811/26/22 0310 11/25/22 0335 ALT 8 8 - - 24 AST 12 12 - - 24 TBILI 0.2 0.2 - - 0.2 PROT 6.7 6.9 - - 6.9 ALB 2.6* 2.7* 2.3* - 2.6* ALKPHOS 92 100 - - 85 - = values in this interval not displayed. Coagulation: Recent Labs Component Name 12/31/22205212/13/22 0146 12/09/22 1211 PT 13.7 13.3 14.3 INR 1.1 1.0 1.1 Micro: None Imaging: Imaging reviewed. Assessment: History of CVA (cerebrovascular accident) (POA: Yes) Hyperlipidemia (POA: Yes) Status epilepticus (CMS/HCC) (POA: Yes) Seizure disorder (CMS/HCC) (POA: Yes) Chronic respiratory failure with hypoxia (CMS/HCC) (POA: Yes) Dementia, vascular (CMS/HCC) (POA: Yes) PEG (percutaneous endoscopic gastrostomy) status (CMS/HCC) (POA: Yes) Tracheostomy in place (CMS/HCC) (POA: Yes) Anemia of chronic disease (POA: Yes) Acute encephalopathy (POA: Yes) PLAN: Neurological: RASS goal -1-0 #Focal Epilepsy #Status Epilepticus? In setting of cefepime use and discontinuation of Clobazam and acute PNA at OSH Concern for subclinical seizures and status epilepticus given continued seizures at OSH despite treatment Episodes of facial twitching. Home regimen: Keppra 2000mg BID, Clobazam 20mg BID, Lacosamide 200mg BID, Valproate 750mg BID Valproate wnl PLAN: - Neurology consulted - One time Onfi 20mg this AM, 40mg this afternoon, 40mg tonight - s/p Bolus Propofol (once), drip at 40mcg - Continue home regimen as above. - cEEG - If patient continues to seize, please call/page general neurology and discuss adding a second granite cutter - On seizure and fall precaution ?? #Acute Encephalopathy #Vascular dementia Likely secondary to continued seizures, sedation and previously likely secondary to infection. Baseline A&Ox3 per family. Ammonia,TSH, valproate wnl PLAN: - CT Head w/o contrast - Aspiration precaution Cardiovascular: MAP goal > 65 #Hypotension Likely 2/2 propofol S/p 500cc LR PLAN: - on Levo ?? #HTN - Home regimen metoprolol 25mg BID - Holding home regimen 2/2 soft pressures ?? Pulmonary: SpO2 goal - 92% ?? #Chronic Hypoxic Respiratory Failure - Trach dependent - Initial ABG w/ pH 7.50; improved to 7.44 following adjustments - CXR w/ stable trach placement. ?? #Aspiration Pneumonia- Resolved - S/p treatment for aspiration pneumonia as below ?? GI: #GJ tube dependence - KUB w/ evidence of proper placement - Tube feeds adjust daily to goal of 50mL ?? Renal: MARI ?? Endocrine: BGM goal 140-180 mg/dL ?? ID: #Aspiration Pneumonia- Resolved - Initially Hypoxic and tachycardic; CT Chest w/ consolidation of R lung and small pleural effusion. - Cultures at OSH w/ Pseudomonas and Acinetobacter resistant to multiple antibiotics - S/p treatment course w/ cefepime (EOT 12/25) and bactrim (EOT 12/30) - Afebrile on admission; no leukocytosis - CXR w/ no evidence of persistent consolidation. ?? Heme/Onc: #Anemia - Iron studies ordered - Vit B12?? FEN: -Monitor electrolytes QD, Replace K<4, Mg<2, Phos<3 ?? #Hyponatremia Volume down vs SIADH vs Adrenal Insufficiency S/p 500cc LR PLAN: - AM cortisol blood Lines: PICC, Trach, Paredes, GJ tube Prophylaxis: Aspiration precautions w/ HOB elevation by 30 degrees GI prophyalxis w/ protonix DVT prophyalxis w/ SCDs, Heparin Diet: NPO, TF Activity: Best Rest Disposition: ICU Monitoring Code Status: Full Harris Garrett MD * Blair Cagle MD - 01/01/2023 4:48 PM CDT MICU ATTENDING PROGRESS NOTE The patient's history was reviewed with the MICU Resident/s. Patient was seen and examined with theMICU Team. I agree with the findings and assessment and recommendations except as follows: The patient is a 62 year old male who was admitted to the MICU for status epilepticus. S> Last night the patient was started on propofol IV in addition to the current seizure medications as per Neurology Service. The patient did not have any new seizure events overnight. The patientrequired norepinephrine IV for hypotension with propofol. The patient was maintained on mechanical ventilation overnight. The patient had no other new acute events overnight. This morning, the patient was unable to communicate his symptoms due to sedation. The patient's sister informed us that [facility] took good care of the patient's pneumonia but did not have 2 of his seizure medications. Past Medical History: Diagnosis Date ??? CVA (cerebral vascular accident) (CMS/HCC) ??? HTN (hypertension) ??? Seizure (CMS/HCC) Current Facility-Administered Medications Medication ??? 0.9% NaCl injection 3 mL And ??? 0.9% NaCl injection 1-10 mL ??? artificial tears ophthalmic ointment ??? chlorhexidine (Peridex) 0.12 % oral solution 15 mL ??? cloBAZam (Onfi) tablet 40 mg ??? enoxaparin (Lovenox) injection 40 mg ??? iopamidol (Isovue 300) 61 % contrast 30 mL ??? lacosamide (Vimpat) tablet 200 mg ??? levETIRAcetam (Keppra) tablet 2,000 mg ??? norepinephrine (Levophed) 8 mg/250 ml D5 infusion premix ??? pantoprazole (Protonix) injection 40 mg ??? propofol (Diprivan) infusion ??? valproic acid (Depakene) solution 750 mg Allergy: Allergies Allergen Reactions ??? Clonazepam Psychiatric hallucinations O> PE: BP 103/69 Pulse 67 Temp 97.8 ??F (36.6 ??C) (Oral) Resp 12 Ht 1.778 m (5' 10 ) Wt 59.6 kg (131 lb 6.3 oz) SpO2 100% General: The patient is sedated and not in cardiopulmonary distress. [place] and anicteric conjunctivae. Abdomen: Soft and nontender. No cyanosis. No clubbing. No edema. I - O = -363.1 mL Laboratory tests, imaging studies, and other ancillary test [facility] reviewed with[facility]. EEG shows mainly suppression with minimal bursts PROBLEM LIST FOR [facility] DOCUMENTATION: History of CVA (cerebrovascular accident) (POA: Yes) Hyperlipidemia (POA: Yes) Status epilepticus (CMS/HCC) (POA: Yes) Seizure disorder (CMS/HCC) (POA: Yes) Chronic respiratory failure with hypoxia (CMS/HCC) (POA: Yes) Dementia, vascular (CMS/HCC) (POA: Yes) PEG (percutaneous endoscopic gastrostomy) status (CMS/HCC) (POA: Yes) Tracheostomy in place (CMS/HCC) (POA: Yes) Anemia of chronic disease (POA: Yes) Acute encephalopathy (POA: Yes) ASSESSMENT: 1. Seizure disoder with status epilepticus, controlled with the addition of propofol to seizure regimen 2. History of cerebrovascular disease 3. Chronic hypercapnic respiratory failure due to ? 4. S/p tracheostomy 5. Vasoplegic shock due to propofol 6. History of systemic hypertension 7. S/p PEG 8. Hyponatremia, consider SIADH? 9. Anemia PLAN: 1. Neurology Service comanaging seizure d/o 2. Seizure regimen: 3. A. Propofol, wean to achieve burst suppression 4. B. May give midazolam IV prn for breakthrough seizure 5. C. Levetiracetam 6. D. Clobazam 7. E. lacosamide 8. F. Valproic acid 9. Norepinephrine IV for hypotension. 10. Volume assist control: tidal volume = 450 ml, PEEP = 8 cmH2O, BR = 12/min 11. Tube feed 12. On pantoprazole for GI prophylaxis 13. Anemia work-up: A. Serum vitamin B12, methylmalonic acid level, and folate levels B. Serum iron, ferritin, transferrin saturation C. Serum TSH 14. ACTH stim test 15. Enoxaparin 40 mg daily for DVT prophylaxis Blair Stokes. MD Gurjit, [facility], [facility], [facility] Manager Document, [facility] Physician [facility] Professor of Internal Medicine Adjunct Arbitrator of Neurology Division of Pulmonary, Critical Care, and Sleep Medicine [facility] * Michelle Maloney RCP - 01/01/2023 1:05 PM CDT Transport Start Time: 1245 Transport Assisted by 1 # of Therapists Transport From: [id number] Transport To: CT Total Transport Time: 20 Patient transported with HOB @ 30-45 degrees? yes Oral care performed & documented within 4 hours of transport on life support? yes Patient's oral cavity suctioned, including above the airway cuff, prior to transport? yes * Baldev Gutierrez - 01/01/2023 10:59 AM CDT During morning exam, Pt continued to have eye blinking and mouth twitching. Per nurses, he also hadintermittent right face twitchings. He was on tracheostomy, sedated, nonverbal, not following commands, grimaced to pain in all extremities but did not withdraw to painful stimuli. 3+ reflexes in UE,2+ reflex in LE. Pupils: R L NPI 1 2.6 Size 4.8 4.88 EEG:?? IMPRESSION This is an abnormal cEEG due to 1) electrographic/electroclinical seizures of posterior midline/right parieto-occipital onset, 2) right frontal and bifrontal epileptiform discharges, 3) lateralized right hemispheric dysfunction, and 4) generalized slowing. CLINICAL CORRELATION: Between 12/31/2022 to 01/01/2023, the study was suggestive of increased tendency toward seizures, lateralized right hemispheric dysfunction, and moderate to severe encephalopathy. Electrographic/electroclinical seizures suggestive of midline/right posterior quadrant onset were observed, with occasionalclinical correlation in the form of left clonic facial movements and occasional rhythmic eye blinking were identified from the beginning of the epoch. The seizures increased in repetitive seizures between 00:00 to 01:00 on 01/01/2023, with subsequent interval of improvement, but again recurred circa 03:45 PM at the frequency of 1 to 2 times per hour. Assessment: His focal epilepsy may be worsened 2/2 the use of cefepime or disconinuance of Clobazam or respiratory infection at the OSH. Focal seizures should be controlled before it progresses to generalized seizure. Recommendations: 1. Pt already received 20 mg of Onfi this morning at 8 AM. Given his presentation, we rec adding anone-time Onfi 20 mg. Then 40 mg Onfi this afternoon and 40 mg tonight. Onfi 20 mg BID starting fromtomorrow. 2. Give an one-time Propofol Bolus of half of dose of his current propofol drip. Also double his propofol infusion dose. 3. If patient continues to seize, please call/page general neurology and discuss adding a second granite cutter. 4. Continue Depakene 750 mg BID, Keppra 2g BID, Vimpat 200 mg BID. Discussed with attending Dr. Carney. Please see Dr. Lau's note for more details. Baldev Gutierrez Neurology sub-sports team marketing intern * Dina Gardner RN - 01/01/2023 6:18 AM CDT Problem: Mechanical Ventilation Goal: Patent airway Outcome: Progressing Goal: Oral health is maintained or improved Outcome: Progressing Goal: Tracheostomy will be managed safely Outcome: Progressing Goal: ET tube will be managed safely Outcome: Progressing Goal: Ability to express needs and understand communication Outcome: Progressing Goal: Mobility/activity is maintained at optimum level for patient Outcome: Progressing Problem: Oxygenation/Respiratory Function Goal: Patent airway Outcome: Progressing Goal: Respiratory rate/effort will be within specified limits Outcome: Progressing Problem: Care of Tracheostomy Goal: Tracheostomy tube and site will be maintained Outcome: Progressing Problem: Potential for Infection Goal: Insertion site without signs/symptoms of infection Outcome: Progressing Problem: Knowledge Deficit Goal: Patient/Significant other demonstrates understanding of Tracheostomy Outcome: Progressing * Eric Lira RCP - 01/01/2023 2:59 AM CDT Trach bag in room for emergency use with the following supplies: Obturator from indwelling trach, Extra trach tubes (same size and one size smaller), Manual resuscitation bag w/ mask, Suction catheter kit (appropriate size for trach), 10 ml syringe, Sterile 4x4 gauze sponges, Tape * Eric Lira RCP - 01/01/2023 2:57 AM CDT Problem: Mechanical Ventilation Goal: Ability to express needs and understand communication Outcome: Not Progressing Problem: Mechanical Ventilation Goal: Patent airway Outcome: Progressing Problem: Mechanical Ventilation Goal: Oral health is maintained or improved Outcome: Progressing Problem: Mechanical Ventilation Goal: Tracheostomy will be managed safely Outcome: Progressing Problem: Oxygenation/Respiratory Function Goal: Patent airway Outcome: Progressing Problem: Oxygenation/Respiratory Function Goal: Respiratory rate/effort will be within specified limits Outcome: Progressing Problem: Care of Tracheostomy Goal: Tracheostomy tube and site will be maintained Outcome: Progressing Trach will be secured via trach black device to keep airway in place. Size 6 Bivona trach secured via trach black. Vent circuit supported to prevent pulling on trach. documented in this encounter H&P Notes * Elsa Moscoso MD - 12/31/2022 9:07 PM CDT MICU History & Physical Note 12/31/2022 9:08 PM Patient: Mojgan Tabor (:1960) Room: [facility] Admit Date: 12/31/2022. Hospital Day: 0 CC: Status epilepticus HPI: Mojgan Tabor is 62 year old male with history of epilepsy, chronic hypoxic respiratory failure (w/ trach), H/o multiple CVA's w/ residual deficits, PEG dependent, HTN, vascular dementia, alcohol use disorder. admitted on 12/31/2022 from OSH for continued seizures and concern for status epilepticus. Initially admitted at [facility] on 12/18/22 for hypoxia and tachycardia. Found to have a RLLpneumonia. Sputum cultures were significant for Pseudomonas and Actinobacter resistant to multiple antibiotics. He completed a course of cefepime (EOT 12/25) and Bactrim (EOT 12/30) with improvement in leukocytosis and clinical symptoms. OSH initially planned to discharge on 12/28 however patient began having worsening seizures that were recurrent in nature. Home Clobazam was not on formulary at OSH. Neurology was consulted for concern of status epilepticus. Remainder of home Keppra 200mg BID, Valproate 750mg BID, and Lacosamide 200mg BID were continued. On 12/30 Neurology increased his Valproate to 750mg QID as patient continued to have recurrent seizures. He was transferred for higher level of care and continuous EEG given concern for subclinical seizures. On presentation patient is unable to communicate given propofol drip. Per family he is normally A&Ox4. He has not had a seizure since last year until this previous admission per family. On admission VSS; satting well w/ FiO2 30%, PEEP 5. Trach and GJ tube in place; placement confirmed with radiology. Outside paredes exchanged. Initial ABG w/ pH 7.50, CO2 33, and O2 175. Repeat ABG following adju stment improved. w/ pH 7.44. Labs w/ K 4.8, Mg. 1.9, Phos 3.1, Lactate 1.6, WBC 6.8, Hg 10.3. Tropsnegative. CXR unremarkable; trach in proper position. KUB w/ well positioned GJ tube. Past Medical History Past Medical History: Diagnosis Date ??? CVA (cerebral vascular accident) (CMS/HCC) ??? HTN (hypertension) ??? Seizure (CMS/HCC) Past Surgical History Past Surgical History: Procedure Laterality Date ??? ENDOSCOPY, UPPER N/A 03/25/2022 N/A; ESOPHAGOGASTRODUODENOSCOPY (EGD) DIAGNOSTIC with PEG Placement ??? ENT SURGERY N/A 07/15/2022 N/A; TRANSCERVICAL ZENKERS DIVERTICULECTOMY, OPEN TRACHEOSTOMY ??? 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 SINUS SURGERY N/A 11/26/2022 N/A; Bilateral Nasal Endoscopy, Right polypectomy, Right Maxillary Antrostomy, Rihjy Anterior Ethmoidectomy Social History Social History Tobacco Use ??? Smoking status: Former Packs/day: 1.00 Years: 15.00 Pack years: 15.00 Types: Cigarettes ??? Smokeless tobacco: Never Vaping Use ??? Vaping Use: Never used Substance Use Topics ??? Alcohol use: No Comment: last drink 2015 ??? Drug use: No Comment: occasional Family History No family history on file. Allergies Allergies Allergen Reactions ??? Clonazepam Psychiatric hallucinations Home Medications Current Outpatient Medications Medication Instructions ??? acetaminophen (TYLENOL) 500 mg, Enteral Tube, EVERY 6 HOURS PRN, Maximum allowable Acetaminophen amount = 4 Grams (4000 mg) / 24 hours. ??? artificial tears ophthalmic ointment Each Eye, EVERY 8 HOURS ??? aspirin (ASPIRIN) 81 mg, Enteral Tube, DAILY ??? atorvastatin (LIPITOR) 40 mg, Enteral Tube, DAILY ??? cloBAZam (ONFI) 20 mg, Enteral Tube, 2 TIMES DAILY ??? divalproex sprinkle (DEPAKOTE SPRINKLE) 500 mg, Enteral Tube, EVERY 6 HOURS ??? docusate sodium (COLACE) 150 mg, Oral, DAILY PRN ??? enoxaparin (LOVENOX) 40 mg, Subcutaneous, DAILY ??? folic acid (FOLVITE) 1 mg, Enteral Tube, DAILY ??? guaiFENesin (Robitussin) 100 MG/5ML solution 10 mL, Enteral Tube, EVERY 6 HOURS ??? lacosamide (VIMPAT) 200 mg, Enteral Tube, 2 TIMES DAILY ??? levalbuterol (XOPENEX) 1.25 mg, Inhalation, EVERY 8 HOURS PRN ??? levETIRAcetam (KEPPRA) 2,000 mg, Enteral Tube, 2 TIMES DAILY ??? metoprolol tartrate IR (LOPRESSOR) 25 mg, Enteral Tube, 2 TIMES DAILY ??? polyethylene glycol 3350 (MIRALAX) 17 g, Enteral Tube, DAILY ??? tamsulosin (FLOMAX) 0.4 mg, Oral, DAILY, At the same time every day after a meal. Please make sure it is via enteral tube. ??? thiamine (VITAMIN B-1) 100 mg, Enteral Tube, DAILY Review of Systems: Deferred as patient is unable to communicate Objective: Vitals: 12/31/22 1933 12/31/222010 Pulse: 77 SpO2: 100% Weight: 59.6 kg (131 lb 6.3 oz) No intake or output data in the 24 hours ending 12/31/22 2108 S RR: 16 bpm S VT: 400 ML PEEP/CPAP: 5 cm H20 Mean Airway Pressure (cm H2O): 8.5 cm H2O O2 %: 30 % Physical Exam General - NAD, afebrile, non cachectic HEENT - NC/AT, clear conjunctivae, moist mucous membranes Neck - Supple, no LAD, no JVD Chest - CTAB no crackles or wheezes bilaterally. Trach in place. CV - RRR no murmurs, radial and DP pulses 2/4, good capillary refill Abdomen - Soft, NT/ND, +BS, no organomegaly. GJ tube in place. No surrounding erythema. Extremities - No edema or injury. Skin - No rashes, lesions or jaundice Neurologic - A&O x 0. Psych - Appropriate mood and affect Labs: CBC: Recent Labs Component Name 12/31/22205212/16/2234812/15/22817 WBC 6.8 11.2* 9.2 HGB 10.3* 12.1 11.3* HCT 31.1* 38.2 33.6* BMP: Recent Labs Component Name 12/16/2234812/15/2281712/14/22 0638 NA 133* 135* 135* CL 105 103 104 CO2 21* 27 23 BUN 12 11 10 CREATININE 0.52* 0.51* 0.47* CALCIUM 9.3 9.3 9.9 PHOS 2.1* 2.8 3.5 Hepatic: Recent Labs Component Name 12/16/2234812/15/2218 12/14/22 0638 11/26/22 0310 11/25/22 0335 11/04/22 0633 10/09/22 1204 ALT - - - - 24 27 10 AST - - - - 24 25 15 TBILI - - - - 0.2 0.2 0.1* PROT - - - - 6.9 7.7 6.9 ALB 2.3* 2.3* 2.4* - 2.6* 2.9* 3.0* ALKPHOS - - - - 85 124 83 - = values in this interval not displayed. Coagulation: Recent Labs Component Name 12/13/22 0146 12/09/22 1211 08/28/22 2224 PT 13.3 14.3 15.2* INR 1.0 1.1 1.2 Cardiac Markers: Recent Labs Component Name 07/11/22 0040 07/01/22 1634 06/28/22 0141 06/27/22 2215 05/30/22 1750 03/08/22 1455 12/31/21 0412 CKTOTAL 49 42 - - - - 77 TROPONINI - - <0.010 <0.010 <0.010 - - - = values in this interval not displayed. ABGs: No results for input(s): PHART, PO2ART, EEA3ONP, BEART in the last 61233 hours. Imaging: Imaging reviewed. Assessment: Status epilepticus (CMS/HCC) (POA: Unknown) Chronic respiratory failure with hypoxia (CMS/HCC) (POA: Unknown) PLAN: Neurological: RASS goal -1-0 #Epilepsy - Concern for subclinical seizures and status epilepticus given continued seizures at OSH despite treatment - Episode facial twitching on exam - S/p Ativan 1mg IV x1 - Was not on home Clobazam at OSH as it was not on formulary. - Home regimen: Keppra 2000mg BID, Clobazam 20mg BID, Lacosamide 200mg BID, Valproate 750mg BID - Valproate increased to 750mg QID per OSH Nuero - Keppra Level - Valproate Level - Neurology consult; restart home regimen as above. - Continuous EEG - Propofol #Acute Encephalopathy - Likely secondary to continued seizures, sedation and previously likely secondary to infection. - Baseline A&Ox3 per family. - Ammonia level to rule out any acute encephalopathy secondary to Valproate induced hyperammonemia. Cardiovascular: MAP goal > 65 - Not currently on pressors #HTN - Home regimen metoprolol 25mg BID - Holding home regimen 2/2 normotensive/soft pressures Pulmonary: SpO2 goal - 92% #Chronic Hypoxic Respiratory Failure - Trach dependent - Initial ABG w/ pH 7.50; improved to 7.44 following adjustments - CXR w/ stable trach placement. #Aspiration Pneumonia- Resolved - S/p treatment for aspiration pneumonia as below GI: #GJ tube dependence - KUB w/ evidence of proper placement - Tube feeds @ 20mL/hr Renal: MARI Endocrine: BGM goal 140-180 mg/dL ID: #Aspiration Pneumonia- Resolved - Initially Hypoxic and tachycardic; CT Chest w/ consolidation of R lung and small pleural effusion. - Cultures at OSH w/ Pseudomonas and Acinetobacter resistant to multiple antibiotics - S/p treatment course w/ cefepime (EOT 12/25) and bactrim (EOT 12/30) - Afebrile on admission; no leukocytosis - CXR w/ no evidence of persistent consolidation. Heme/Onc: MARI FEN: -Monitor electrolytes QD, Replace K<4, Mg<2, Phos<3 Lines: Type: PICC Prophylaxis: Aspiration precautions w/ HOB elevation by 30 degrees, Seizure precautions. GI prophyalxis w/ Pantoprazole DVT prophyalxis w/ SCDs, Lovenox Diet: Tube Feeds @ 20mL/hr. Activity: Bedrest Disposition: ICU Monitoring Code Status: Full Elsa Moscoso MD Associated attestation - Tejas Martinez DO - 01/01/2023 3:22 AM CDT Medical ICU Attending Note I have seen and examined the patient with the MICU resident/fellow. I provided this patient with direct intervention and supervision necessary to prevent life- threatening deterioration related to thepatient's presenting illness. I personally spent critical care time involving highly complex decision-making to assess, support, and treat multiple organ systems. I agree with the resident/fellow documentation. Any additions/corrections will be reflected in my attestation: HPI: In brief, Mojgan Tabor is a 62 year old male with history of epilepsy, chronic hypoxic respiratory failure s/p trach and PEG, multiple CVA's with residual deficits, HTN, and vascular dementia who wastransferred from OSH for status epilepticus. He initially presented to [facility] on 12/18 and was found to have RLL pneumonia with cultures positive for MDRO Pseudomonas and MDRO Acinetobacterfor which he completed a course of cefepime (EOT 12/25) and TMP/SMX (12/30). However, started to have persistent seizures so he was transferred to [facility] for cEEG. On my evaluation, patient is sedated on propofol gtt. Grimaces to painful stimuli but not withdrawing extremities to pain. PM[facility]: [facility] Allergies: reviewed in [facility] Past Surgical History Past Surgical History: Procedure Laterality Date ENDOSCOPY, UPPER N/A 03/25/2022 N/A; ESOPHAGOGASTRODUODENOSCOPY (EGD) DIAGNOSTIC with PEG Placement ENT SURGERY N/A 07/15/2022 N/A; TRANSCERVICAL ZENKERS DIVERTICULECTOMY, OPEN TRACHEOSTOMY Leg Amputation, Below Knee Left 03/15/2022 Left; LEFT BKA POSS AKA SINUS SURGERY N/A 11/26/2022 N/A; Bilateral Nasal Endoscopy, Right polypectomy, Right Maxillary Antrostomy, Rihjy Anterior Ethmoidectomy Social history: reviewed in [facility] Family History No family history on file. Physical Exam: BP 118/73 Pulse 73 Temp 97.4 ??F (36.3 ??C) (Axillary) Resp 12 Wt 59.6 kg (131 lb 6.3 oz) SpO2 100% Estimated body mass index is 18.85 kg/m?? as calculated from the following: Height as of 12/14/22: 1.778 m (5' 10 ). Weight as of this encounter: 59.6 kg (131 lb 6.3 oz). General: NAD, sedated HEENT: NC/AT, non-icteric, PERRL, trach in place Heart: RRR, no murmurs Lungs: CTAB, no wheezing or crackles Abdomen: soft, NT, ND, nl BS Ext: no BLE edema, good pulses Neuro: sedated, not withdrawing extremities to pain but does grimace Skin: no rashes Intake/Output Summary (Last 24 hours) at 01/01/2023 0202 Last data filed at 01/01/2023 0110 Gross per 24 hour Intake 201.04 ml Output 300 ml Net -98.96 ml Data: I have personally reviewed the pertinent labs and imaging. CBC: Recent Labs Component Name 12/31/22205212/16/22 0349 12/15/22 0818 WBC 6.8 11.2* 9.2 HGB 10.3* 12.1 11.3* HCT 31.1* 38.2 33.6* BMP: Recent Labs Component Name 12/31/22205512/16/22 0349 12/15/22 0818 NA 131* 133* 135* CL 102 105 103 CO2 24 21* 27 BUN 19 12 11 CREATININE 0.60* 0.52* 0.51* CALCIUM 9.6 9.3 9.3 PHOS 3.1 2.1* 2.8 ABGs: No results for input(s): PHART, PO2ART, [id number], BEART in the last 74442 hours. Assessment: History of CVA (cerebrovascular accident) (POA: Yes) Hyperlipidemia (POA: Yes) Status epilepticus (CMS/HCC) (POA: Yes) Seizure disorder (CMS/HCC) (POA: Yes) Chronic respiratory failure with hypoxia (CMS/HCC) (POA: Yes) Dementia, vascular (CMS/HCC) (POA: Yes) PEG (percutaneous endoscopic gastrostomy) status (CMS/HCC) (POA: Yes) Tracheostomy in place (CMS/HCC) (POA: Yes) Anemia of chronic disease (POA: Yes) Plan: Neuro: - Neurology consulted for status epilepticus and cEEG - Restart all home anti-epileptics: Onfi, Vimpat, Keppra, and valproic acid - Analgesia/sedation: propofol gtt Respiratory: - Currently with trach on vent: VAC TV 440, RR 12, FiO2 30%, PEEP 5 - Had pneumonia (Pseudomonas, Acinetobacter) at OSH and completed treatment with cefepime and Bactrim - HOB>30, monitor for respiratory distress Cardiac: - Monitor hemodynamics, goal MAP ~ 65 mmHg - Hold home metoprolol 25 mg BID for now GI: - Nutrition: start early TF Orders Placed This Encounter Procedures DIET NPO Except: NO EXCEPTIONS Standing Status: Standing Number of Occurrences: 1 Order Specific Question: Except Answer: NO EXCEPTIONS Renal: - Monitor UOP. Monitor Cr and electrolytes, goal K~4, Mg~2 and Phos~3 ID: - No active issues Hematology: - Monitor H&H. Transfuse if Hb < 7 Endo: - Monitor sugars, goal 140-180. DVT ppx: lovenox GI ppx: PPI Lines: Enteral - Gastrojejunal Abdomen;Left;Upper (Active) Placement Date/Time: 12/14/22 1556 Name/Credentials of person who placed: Dr. Payton Type: Gastrojejunal Tube Location: Abdomen;Left;Upper Size (FR): 18 Procedure Tolerance: Well Number of days: 17 Enteral - Jejunostomy Abdomen (Active) Placement Date/Time: 12/31/22 190 Existing LDA : Outside Facility Name/Credentials of person who placed: unknown- present on arrival Type: Jejunostomy Tube Location: Abdomen Number of days: 0 Trach Bivona (Active) Placement Date: (c) Pre-existing airway in place from:: Outside Facility Person who placed: placed at previous facility Brand: Bivona Airway Device: (c) Cuffed Cuff Type: (c) Water (Bivona) Trach size: 6 MM Trach Length: 70 mm Number of days: PICC Right Median Cubital Vein (Active) Placement Date/Time: (c) 12/31/221899 Existing LDA : Outside Facility Name/Credentials of person who placed: unknown Orientation: Right Vein used: Median Cubital Vein Number of days: 0 Indwelling Transurethral Urinary Catheter (Active) Placement Date/Time: 12/31/222129 Name/Credentials of person who placed: Dina SIMON Size (FR): 16 Urinary Catheter Type: Straight-tip Catheter Balloon Size: 10 mL Closed System Maintained This Shift: Yes, Seal Intact Number of attempts: 1 Pro... Number of days: 0 Code status: Full Dispo: ICU monitoring Total Critical Care Time: 32 minutes Patient is at high risk for complications and morbidity or mortality. Patient is critically ill with vital organ impairment or failure. There is high probability of imminent or life threatening deterioration in the patient's condition. Time involved in the performance of separately billable procedures, teaching, reviewing education material was not counted towards critical care time. Patient is unable or incompetent to participate in giving a history and/or making decisions and discussion is necessary for determining treatment decisions. Date of service: 12/31/2022 Tejas Martinez D.O. Arbitratorincident response manager Division of Pulmonary, Critical Care, and Sleep Medicine [facility] Pager: [phone] documented in this encounter Procedure Notes * Sean Raymundo, DO - 01/05/2023 6:22 AM CDT [facility] EEG REPORT Patient Name: Mojgan Tabor EEG#: [id number] Recording Start Time: 21:51 PM 12/31/2022 Epoch Start Time: 05:00 AM 01/04/2023 Epoch Stop Time: 13:42 PM 01/05/2023 Clinical History: Mojgan Tabor is a 62 year old male with seizures or altered mental status. This continuous video EEG monitoring is ordered to evaluate for seizures in the setting of altered mental status. Current medications Current Facility-Administered Medications Medication ??? 0.9% NaCl injection 3 mL And ??? 0.9% NaCl injection 1-10 mL ??? artificial tears ophthalmic ointment ??? aspirin chew tablet 81 mg ??? chlorhexidine (Peridex) 0.12 % oral solution 15 mL ??? cloBAZam (Onfi) tablet 20 mg ??? enoxaparin (Lovenox) injection 40 mg ??? iron sucrose (Venofer) injection 200 mg ??? lacosamide (Vimpat) tablet 200 mg ??? levETIRAcetam (Keppra) tablet 2,000 mg ??? pantoprazole (Protonix) injection 40 mg ??? propofol (Diprivan) infusion ??? valproic acid (Depakene) solution 750 mg Description This is a continuous video EEG monitoring is 21-channels; consisting of 20 channels of EEG obtainedfrom electrodes placed on the scalp according to the international 10-20 system, T1 and T2 electrodes, and one channel of EKG monitoring. Background: Epoch Start Time: 21:51 PM 12/31/2022 Epoch Stop Time: 05:00 AM 01/01/2023 The background was asymmetric, with lateralized right hemispheric slowing. No well-developed posterior dominant rhythm was identified. Anterior-posterior gradient was absent. The background was continuous and consisted of generalized poorly-organized admixed polymorphic theta and delta frequency activity of low amplitude more visible over the left. Frequent beta activity was observed. Variabilitywas present. Reactivity was present. Normal sleep architecture was not seen. Epileptiform discharges were occasionally identified over the right frontal and bilateral frontal regions. Electrographic/electroclinical seizures were observed from the beginning of the recording in the form of posterior sagittal and right parieto-occipital faster frequencies with subsequent evolution inrhythmicity and morphology, and left hemispheric propagation. Clincial correlation, when observed, was in the form of left clonic facial movements with occasional rhythmic eye blinking. The seizures were typically of 2 minutes in duration, but can reach 6 minute on occasion. Initially, the seizuresoccurred 2 to 3 times per hour. There was increase in repetitive seizures between 00:00 to 01:00 01/01/2023, reaching 5 times per hour, with subsequent interval of improvement. Seizures again recurred circa 03:45 PM, at the frequency of 1 to 2 times per hour. Epoch Start Time: 05:00 AM 01/01/2023 Epoch Stop Time: 05:00 AM 01/02/2023 The background was asymmetric, with lateralized right hemispheric slowing. No well-developed posterior dominant rhythm was identified. Anterior-posterior gradient was absent. The background was continuous and consisted of generalized poorly-organized admixed polymorphic theta and delta frequency activity of low amplitude more visible over the left. Frequent beta activity was observed. Variabilitywas present. Reactivity was present. Normal sleep architecture was not seen. As the recording progressed, the background became discontinuous (by 22:19 PM 01/01) with periods of diffuse suppression (<10 microvolts amplitude) interspersed with admixed polymorphic theta and delta bursts. Epileptiform discharges were occasionally identified over the right frontal and bilateral frontal regions. Electrographic/electroclinical seizures were observed from the beginning of the epoch in the form of posterior sagittal and right parieto-occipital faster frequencies with subsequent evolution in rhythmicity and morphology, and left hemispheric propagation. Clincial correlation, when observed, was in the form of left clonic facial movements with occasional rhythmic eye blinking. The seizures weretypically of 2 minutes in duration, occurring about 2-3 times per hour,nitially, the seizures occurred 2 to 3 times per hour. The last noted seizure was at 08:22 AM on 01/01. Epoch Start Time: 05:00 AM 01/02/2023 Epoch Stop Time: 05:00 AM 01/03/2023 The background was asymmetric, with lateralized right hemispheric slowing. No well-developed posterior dominant rhythm was identified. Anterior-posterior gradient was absent. The background was discontinuous and consisted largely of generalized poorly-organized admixed polymorphic theta and delta frequency activity of low amplitude more visible over the left. There were interspersed brief periodsof diffuse suppression (<10 microvolts amplitude). Frequent beta activity was observed. Variability was present. Reactivity was present. Normal sleep architecture was not seen. Epileptiform discharges were occasionally identified over the right frontal and bilateral frontal regions. Episodes of blinking did not have a definite electro-cerebral correlate. Epoch Start Time: 05:00 AM 01/03/2023 Epoch Stop Time: 05:00 AM 01/04/2023 The background was asymmetric, with lateralized right hemispheric slowing. No well-developed posterior dominant rhythm was identified. Anterior-posterior gradient was absent. The background was continuous and consisted largely of generalized poorly-organized admixed polymorphic theta and delta frequency activity of low amplitude more visible over the left. Frequent beta activity was observed. Variability was present. Reactivity was present. Normal sleep architecture was not seen. Epileptiform discharges were occasionally identified over the right frontal and bilateral frontal regions. Episodes of blinking did not have a definite electro-cerebral correlate. Epoch Start Time: 05:00 AM 01/04/2023 Epoch Stop Time: 13:42 PM 01/05/2023 The background was asymmetric, with lateralized right hemispheric slowing. No well-developed posterior dominant rhythm was identified. Anterior-posterior gradient was absent. The background was continuous and consisted largely of generalized poorly-organized admixed polymorphic theta and delta frequency activity of low amplitude more visible over the left. Frequent beta activity was observed. Variability was present. Reactivity was present. Normal sleep architecture was not seen. Epileptiform discharges were occasionally identified over the right frontal and bilateral frontal regions. Episodes of blinking did not have a definite electro-cerebral correlate. EKG was observed throughout the recording. IMPRESSION This is an abnormal cEEG due to 1) electrographic/electroclinical seizures of posterior midline/right parieto-occipital onset (last 08:22 AM 01/01), 2) right frontal and bifrontal epileptiform discharges, 3) lateralized right hemispheric dysfunction, and 4) severe generalized slowing. CLINICAL CORRELATION: Between 12/31/2022 to 01/01/2023, the study was suggestive of increased tendency toward seizures, lateralized right hemispheric dysfunction, and moderate to severe encephalopathy. Electrographic/electroclinical seizures suggestive of midline/right posterior quadrant onset were observed, with occasionalclinical correlation in the form of left clonic facial movements and occasional rhythmic eye blinking were identified from the beginning of the epoch. The seizures increased in repetitive seizures between 00:00 to 01:00 on 01/01/2023, with subsequent interval of improvement, but again recurred circa 03:45 PM at the frequency of 1 to 2 times per hour. Between 01/01/2023 and 01/02/2023, the seizures stopped (last seen 08:22 AM 01/01), and the background became more discontinuous indicative of a more severe encephalopathy, possibly due to increased treatment with sedative medications. Between 01/02/2023 and 01/03/2023, no further seizures were seen, and the background continued to be more consistent with a severe encephalopathy. Episodes of blinking did not have a definite electro-cerebral correlate. Between 01/03/2023 and 01/05/2023, no further definite electrographic seizures were seen and the background showed improvement in organization to a moderate encephalopathy. Sean Raymundo DO * Sean Raymundo, - 01/04/2023 9:08 AM CDT [facility] EEG REPORT Patient Name: Mojgan Tabor EEG#: [id number] Recording Start Time: 21:51 PM 12/31/2022 Epoch Start Time: 05:00 AM 01/03/2023 Epoch Stop Time: 05:00 AM 01/04/2023 Clinical History: Mojgan Tabor is a 62 year old male with seizures or altered mental status. This continuous video EEG monitoring is ordered to evaluate for seizures in the setting of altered mental status. Current medications Current Facility-Administered Medications Medication ??? 0.9% NaCl injection 3 mL And ??? 0.9% NaCl injection 1-10 mL ??? artificial tears ophthalmic ointment ??? aspirin chew tablet 81 mg ??? chlorhexidine (Peridex) 0.12 % oral solution 15 mL ??? cloBAZam (Onfi) tablet 20 mg ??? enoxaparin (Lovenox) injection 40 mg ??? iron sucrose (Venofer) injection 200 mg ??? lacosamide (Vimpat) tablet 200 mg ??? levETIRAcetam (Keppra) tablet 2,000 mg ??? norepinephrine (Levophed) 8 mg/250 ml D5 infusion premix ??? pantoprazole (Protonix) injection 40 mg ??? propofol (Diprivan) infusion ??? valproic acid (Depakene) solution 750 mg Description This is a continuous video EEG monitoring is 21-channels; consisting of 20 channels of EEG obtainedfrom electrodes placed on the scalp according to the international 10-20 system, T1 and T2 electrodes, and one channel of EKG monitoring. Background: Epoch Start Time: 21:51 PM 12/31/2022 Epoch Stop Time: 05:00 AM 01/01/2023 The background was asymmetric, with lateralized right hemispheric slowing. No well-developed posterior dominant rhythm was identified. Anterior-posterior gradient was absent. The background was continuous and consisted of generalized poorly-organized admixed polymorphic theta and delta frequency activity of low amplitude more visible over the left. Frequent beta activity was observed. Variabilitywas present. Reactivity was present. Normal sleep architecture was not seen. Epileptiform discharges were occasionally identified over the right frontal and bilateral frontal regions. Electrographic/electroclinical seizures were observed from the beginning of the recording in the form of posterior sagittal and right parieto-occipital faster frequencies with subsequent evolution inrhythmicity and morphology, and left hemispheric propagation. Clincial correlation, when observed, was in the form of left clonic facial movements with occasional rhythmic eye blinking. The seizures were typically of 2 minutes in duration, but can reach 6 minute on occasion. Initially, the seizuresoccurred 2 to 3 times per hour. There was increase in repetitive seizures between 00:00 to 01:00 01/01/2023, reaching 5 times per hour, with subsequent interval of improvement. Seizures again recurred circa 03:45 PM, at the frequency of 1 to 2 times per hour. Epoch Start Time: 05:00 AM 01/01/2023 Epoch Stop Time: 05:00 AM 01/02/2023 The background was asymmetric, with lateralized right hemispheric slowing. No well-developed posterior dominant rhythm was identified. Anterior-posterior gradient was absent. The background was continuous and consisted of generalized poorly-organized admixed polymorphic theta and delta frequency activity of low amplitude more visible over the left. Frequent beta activity was observed. Variabilitywas present. Reactivity was present. Normal sleep architecture was not seen. As the recording progressed, the background became discontinuous (by 22:19 PM 01/01) with periods of diffuse suppression (<10 microvolts amplitude) interspersed with admixed polymorphic theta and delta bursts. Epileptiform discharges were occasionally identified over the right frontal and bilateral frontal regions. Electrographic/electroclinical seizures were observed from the beginning of the epoch in the form of posterior sagittal and right parieto-occipital faster frequencies with subsequent evolution in rhythmicity and morphology, and left hemispheric propagation. Clincial correlation, when observed, was in the form of left clonic facial movements with occasional rhythmic eye blinking. The seizures weretypically of 2 minutes in duration, occurring about 2-3 times per hour,nitially, the seizures occurred 2 to 3 times per hour. The last noted seizure was at 08:22 AM on 01/01. Epoch Start Time: 05:00 AM 01/02/2023 Epoch Stop Time: 05:00 AM 01/03/2023 The background was asymmetric, with lateralized right hemispheric slowing. No well-developed posterior dominant rhythm was identified. Anterior-posterior gradient was absent. The background was discontinuous and consisted largely of generalized poorly-organized admixed polymorphic theta and delta frequency activity of low amplitude more visible over the left. There were interspersed brief periodsof diffuse suppression (<10 microvolts amplitude). Frequent beta activity was observed. Variability was present. Reactivity was present. Normal sleep architecture was not seen. Epileptiform discharges were occasionally identified over the right frontal and bilateral frontal regions. Episodes of blinking did not have a definite electro-cerebral correlate. Epoch Start Time: 05:00 AM 01/03/2023 Epoch Stop Time: 05:00 AM 01/04/2023 The background was asymmetric, with lateralized right hemispheric slowing. No well-developed posterior dominant rhythm was identified. Anterior-posterior gradient was absent. The background was continuous and consisted largely of generalized poorly-organized admixed polymorphic theta and delta frequency activity of low amplitude more visible over the left. Frequent beta activity was observed. Variability was present. Reactivity was present. Normal sleep architecture was not seen. Epileptiform discharges were occasionally identified over the right frontal and bilateral frontal regions. Episodes of blinking did not have a definite electro-cerebral correlate. EKG was observed throughout the recording. IMPRESSION This is an abnormal cEEG due to 1) electrographic/electroclinical seizures of posterior midline/right parieto-occipital onset (last 08:22 AM 01/01), 2) right frontal and bifrontal epileptiform discharges, 3) lateralized right hemispheric dysfunction, and 4) severe generalized slowing. CLINICAL CORRELATION: Between 12/31/2022 to 01/01/2023, the study was suggestive of increased tendency toward seizures, lateralized right hemispheric dysfunction, and moderate to severe encephalopathy. Electrographic/electroclinical seizures suggestive of midline/right posterior quadrant onset were observed, with occasionalclinical correlation in the form of left clonic facial movements and occasional rhythmic eye blinking were identified from the beginning of the epoch. The seizures increased in repetitive seizures between 00:00 to 01:00 on 01/01/2023, with subsequent interval of improvement, but again recurred circa 03:45 PM at the frequency of 1 to 2 times per hour. Between 01/01/2023 and 01/02/2023, the seizures stopped (last seen 08:22 AM 01/01), and the background became more discontinuous indicative of a more severe encephalopathy, possibly due to increased treatment with sedative medications. Between 01/02/2023 and 01/03/2023, no further seizures were seen, and the background continued to be more consistent with a severe encephalopathy. Episodes of blinking did not have a definite electro-cerebral correlate. Between 01/03/2023 and 01/04/2023, no further definite electrographic seizures were seen and the background showed improvement in organization to a moderate encephalopathy. Sean Raymundo DO * Marcella Curtis - 01/03/2023 2:12 PM CDTProcedure(s): EEG VIDEO MONITORING Remote afternoon checks indicated that there were a few leads that were reading high and needed to be adjusted. Once in the room the following leads were adjusted 02, a2, p8 and fz, all leads are nowreading under 10kOhms. Vitals and HLC ( medically sedated) were noted on the test. Patient is onisolation> * Sean Raymundo DO - 01/03/2023 8:48 AM CDT [facility] EEG REPORT Patient Name: Mojgan Tabor EEG#: [id number] Recording Start Time: 21:51 PM 12/31/2022 Epoch Start Time: 05:00 AM 01/02/2023 Epoch Stop Time: 05:00 AM 01/03/2023 Clinical History: Mojgan Tabor is a 62 year old male with seizures or altered mental status. This continuous video EEG monitoring is ordered to evaluate for seizures in the setting of altered mental status. Current medications Current Facility-Administered Medications Medication ??? 0.9% NaCl injection 3 mL And ??? 0.9% NaCl injection 1-10 mL ??? artificial tears ophthalmic ointment ??? aspirin chew tablet 81 mg ??? chlorhexidine (Peridex) 0.12 % oral solution 15 mL ??? cloBAZam (Onfi) tablet 20 mg ??? enoxaparin (Lovenox) injection 40 mg ??? iron sucrose (Venofer) injection 200 mg ??? lacosamide (Vimpat) tablet 200 mg ??? levETIRAcetam (Keppra) tablet 2,000 mg ??? norepinephrine (Levophed) 8 mg/250 ml D5 infusion premix ??? pantoprazole (Protonix) injection 40 mg ??? propofol (Diprivan) infusion ??? valproic acid (Depakene) solution 750 mg Description This is a continuous video EEG monitoring is 21-channels; consisting of 20 channels of EEG obtainedfrom electrodes placed on the scalp according to the international 10-20 system, T1 and T2 electrodes, and one channel of EKG monitoring. Background: Epoch Start Time: 21:51 PM 12/31/2022 Epoch Stop Time: 05:00 AM 01/01/2023 The background was asymmetric, with lateralized right hemispheric slowing. No well-developed posterior dominant rhythm was identified. Anterior-posterior gradient was absent. The background was continuous and consisted of generalized poorly-organized admixed polymorphic theta and delta frequency activity of low amplitude more visible over the left. Frequent beta activity was observed. Variabilitywas present. Reactivity was present. Normal sleep architecture was not seen. Epileptiform discharges were occasionally identified over the right frontal and bilateral frontal regions. Electrographic/electroclinical seizures were observed from the beginning of the recording in the form of posterior sagittal and right parieto-occipital faster frequencies with subsequent evolution inrhythmicity and morphology, and left hemispheric propagation. Clincial correlation, when observed, was in the form of left clonic facial movements with occasional rhythmic eye blinking. The seizures were typically of 2 minutes in duration, but can reach 6 minute on occasion. Initially, the seizuresoccurred 2 to 3 times per hour. There was increase in repetitive seizures between 00:00 to 01:00 01/01/2023, reaching 5 times per hour, with subsequent interval of improvement. Seizures again recurred circa 03:45 PM, at the frequency of 1 to 2 times per hour. Epoch Start Time: 05:00 AM 01/01/2023 Epoch Stop Time: 05:00 AM 01/02/2023 The background was asymmetric, with lateralized right hemispheric slowing. No well-developed posterior dominant rhythm was identified. Anterior-posterior gradient was absent. The background was continuous and consisted of generalized poorly-organized admixed polymorphic theta and delta frequency activity of low amplitude more visible over the left. Frequent beta activity was observed. Variabilitywas present. Reactivity was present. Normal sleep architecture was not seen. As the recording progressed, the background became discontinuous (by 22:19 PM 01/01) with periods of diffuse suppression (<10 microvolts amplitude) interspersed with admixed polymorphic theta and delta bursts. Epileptiform discharges were occasionally identified over the right frontal and bilateral frontal regions. Electrographic/electroclinical seizures were observed from the beginning of the epoch in the form of posterior sagittal and right parieto-occipital faster frequencies with subsequent evolution in rhythmicity and morphology, and left hemispheric propagation. Clincial correlation, when observed, was in the form of left clonic facial movements with occasional rhythmic eye blinking. The seizures weretypically of 2 minutes in duration, occurring about 2-3 times per hour,nitially, the seizures occurred 2 to 3 times per hour. The last noted seizure was at 08:22 AM on 01/01. Epoch Start Time: 05:00 AM 01/02/2023 Epoch Stop Time: 05:00 AM 01/03/2023 The background was asymmetric, with lateralized right hemispheric slowing. No well-developed posterior dominant rhythm was identified. Anterior-posterior gradient was absent. The background was discontinuous and consisted largely of generalized poorly-organized admixed polymorphic theta and delta frequency activity of low amplitude more visible over the left. There were interspersed brief periodsof diffuse suppression (<10 microvolts amplitude). Frequent beta activity was observed. Variability was present. Reactivity was present. Normal sleep architecture was not seen. Epileptiform discharges were occasionally identified over the right frontal and bilateral frontal regions. Episodes of blinking did not have a definite electro-cerebral correlate. EKG was observed throughout the recording. IMPRESSION This is an abnormal cEEG due to 1) electrographic/electroclinical seizures of posterior midline/right parieto-occipital onset (last 08:22 AM 01/01), 2) right frontal and bifrontal epileptiform discharges, 3) lateralized right hemispheric dysfunction, and 4) severe generalized slowing. CLINICAL CORRELATION: Between 12/31/2022 to 01/01/2023, the study was suggestive of increased tendency toward seizures, lateralized right hemispheric dysfunction, and moderate to severe encephalopathy. Electrographic/electroclinical seizures suggestive of midline/right posterior quadrant onset were observed, with occasionalclinical correlation in the form of left clonic facial movements and occasional rhythmic eye blinking were identified from the beginning of the epoch. The seizures increased in repetitive seizures between 00:00 to 01:00 on 01/01/2023, with subsequent interval of improvement, but again recurred circa 03:45 PM at the frequency of 1 to 2 times per hour. Between 01/01/2023 and 01/02/2023, the seizures stopped (last seen 08:22 AM 01/01), and the background became more discontinuous indicative of a more severe encephalopathy, possibly due to increased treatment with sedative medications. Between 01/02/2023 and 01/03/2023, no further seizures were seen, and the background continued to be more consistent with a severe encephalopathy. Episodes of blinking did not have a definite electro-cerebral correlate. Sean Raymundo DO * Sean Raymundo DO - 01/02/2023 9:01 AM CDT [facility] EEG REPORT Patient Name: Mojgan Tabor EEG#: [id number] Recording Start Time: 21:51 PM 12/31/2022 Epoch Start Time: 05:00 AM 01/01/2023 Epoch Stop Time: 05:00 AM 01/02/2023 Clinical History: Mojgan Tabor is a 62 year old male with seizures or altered mental status. This continuous video EEG monitoring is ordered to evaluate for seizures in the setting of altered mental status. Current medications Current Facility-Administered Medications Medication ??? 0.9% NaCl injection 3 mL And ??? 0.9% NaCl injection 1-10 mL ??? artificial tears ophthalmic ointment ??? aspirin chew tablet 81 mg ??? chlorhexidine (Peridex) 0.12 % oral solution 15 mL ??? cloBAZam (Onfi) tablet 40 mg ??? enoxaparin (Lovenox) injection 40 mg ??? iopamidol (Isovue 300) 61 % contrast 30 mL ??? iron sucrose (Venofer) injection 200 mg ??? lacosamide (Vimpat) tablet 200 mg ??? levETIRAcetam (Keppra) tablet 2,000 mg ??? norepinephrine (Levophed) 8 mg/250 ml D5 infusion premix ??? pantoprazole (Protonix) injection 40 mg ??? propofol (Diprivan) infusion ??? valproic acid (Depakene) solution 750 mg Description This is a continuous video EEG monitoring is 21-channels; consisting of 20 channels of EEG obtainedfrom electrodes placed on the scalp according to the international 10-20 system, T1 and T2 electrodes, and one channel of EKG monitoring. Background: Epoch Start Time: 21:51 PM 12/31/2022 Epoch Stop Time: 05:00 AM 01/01/2023 The background was asymmetric, with lateralized right hemispheric slowing. No well-developed posterior dominant rhythm was identified. Anterior-posterior gradient was absent. The background was continuous and consisted of generalized poorly-organized admixed polymorphic theta and delta frequency activity of low amplitude more visible over the left. Frequent beta activity was observed. Variabilitywas present. Reactivity was present. Normal sleep architecture was not seen. Epileptiform discharges were occasionally identified over the right frontal and bilateral frontal regions. Electrographic/electroclinical seizures were observed from the beginning of the recording in the form of posterior sagittal and right parieto-occipital faster frequencies with subsequent evolution inrhythmicity and morphology, and left hemispheric propagation. Clincial correlation, when observed, was in the form of left clonic facial movements with occasional rhythmic eye blinking. The seizures were typically of 2 minutes in duration, but can reach 6 minute on occasion. Initially, the seizuresoccurred 2 to 3 times per hour. There was increase in repetitive seizures between 00:00 to 01:00 01/01/2023, reaching 5 times per hour, with subsequent interval of improvement. Seizures again recurred circa 03:45 PM, at the frequency of 1 to 2 times per hour. Epoch Start Time: 05:00 AM 01/01/2023 Epoch Stop Time: 05:00 AM 01/02/2023 The background was asymmetric, with lateralized right hemispheric slowing. No well-developed posterior dominant rhythm was identified. Anterior-posterior gradient was absent. The background was continuous and consisted of generalized poorly-organized admixed polymorphic theta and delta frequency activity of low amplitude more visible over the left. Frequent beta activity was observed. Variabilitywas present. Reactivity was present. Normal sleep architecture was not seen. As the recording progressed, the background became discontinuous (by 22:19 PM 01/01) with periods of diffuse suppression (<10 microvolts amplitude) interspersed with admixed polymorphic theta and delta bursts. Epileptiform discharges were occasionally identified over the right frontal and bilateral frontal regions. Electrographic/electroclinical seizures were observed from the beginning of the epoch in the form of posterior sagittal and right parieto-occipital faster frequencies with subsequent evolution in rhythmicity and morphology, and left hemispheric propagation. Clincial correlation, when observed, was in the form of left clonic facial movements with occasional rhythmic eye blinking. The seizures weretypically of 2 minutes in duration, occurring about 2-3 times per hour,nitially, the seizures occurred 2 to 3 times per hour. The last noted seizure was at 08:22 AM on 01/01. EKG was observed throughout the recording. IMPRESSION This is an abnormal cEEG due to 1) electrographic/electroclinical seizures of posterior midline/right parieto-occipital onset (last 08:22 AM 01/01), 2) right frontal and bifrontal epileptiform discharges, 3) lateralized right hemispheric dysfunction, and 4) severe generalized slowing. CLINICAL CORRELATION: Between 12/31/2022 to 01/01/2023, the study was suggestive of increased tendency toward seizures, lateralized right hemispheric dysfunction, and moderate to severe encephalopathy. Electrographic/electroclinical seizures suggestive of midline/right posterior quadrant onset were observed, with occasionalclinical correlation in the form of left clonic facial movements and occasional rhythmic eye blinking were identified from the beginning of the epoch. The seizures increased in repetitive seizures between 00:00 to 01:00 on 01/01/2023, with subsequent interval of improvement, but again recurred circa 03:45 PM at the frequency of 1 to 2 times per hour. Between 01/01/2023 and 01/02/2023, the seizures stopped (last seen 08:22 AM 01/01), and the background became more discontinuous indicative of a more severe encephalopathy, possibly due to increased treatment with sedative medications. Sean Raymundo DO * Sean Raymundo DO - 01/01/2023 7:42 AM CDT [facility] EEG REPORT Patient Name: Mojgan Tabor EEG#: [id number] Recording Start Time: 21:51 PM 12/31/2022 Epoch Start Time: 21:51 PM 12/31/2022 Epoch Stop Time: 05:00 AM 01/01/2023 Clinical History: Mojgan Tabor is a 62 year old male with seizures or altered mental status. This continuous video EEG monitoring is ordered to evaluate for seizures in the setting of altered mental status. Current medications Current Facility-Administered Medications Medication ??? 0.9% NaCl injection 3 mL And ??? 0.9% NaCl injection 1-10 mL ??? artificial tears ophthalmic ointment ??? chlorhexidine (Peridex) 0.12 % oral solution 15 mL ??? cloBAZam (Onfi) tablet 20 mg ??? enoxaparin (Lovenox) injection 40 mg ??? iopamidol (Isovue 300) 61 % contrast 30 mL ??? lacosamide (Vimpat) tablet 200 mg ??? levETIRAcetam (Keppra) tablet 2,000 mg ??? pantoprazole (Protonix) injection 40 mg ??? propofol (Diprivan) infusion ??? valproic acid (Depakene) solution 750 mg Description This is a continuous video EEG monitoring is 21-channels; consisting of 20 channels of EEG obtainedfrom electrodes placed on the scalp according to the international 10-20 system, T1 and T2 electrodes, and one channel of EKG monitoring. Background: Epoch Start Time: 21:51 PM 12/31/2022 Epoch Stop Time: 05:00 AM 01/01/2023 The background was asymmetric, with lateralized right hemispheric slowing. No well-developed posterior dominant rhythm was identified. Anterior-posterior gradient was absent. The background was continuous and consisted of generalized poorly-organized admixed polymorphic theta and delta frequency activity of low amplitude more visible over the left. Frequent beta activity was observed. Variabilitywas present. Reactivity was present. Normal sleep architecture was not seen. Epileptiform discharges were occasionally identified over the right frontal and bilateral frontal regions. Electrographic/electroclinical seizures were observed from the beginning of the recording in the form of posterior sagittal and right parieto-occipital faster frequencies with subsequent evolution inrhythmicity and morphology, and left hemispheric propagation. Clincial correlation, when observed, was in the form of left clonic facial movements with occasional rhythmic eye blinking. The seizures were typically of 2 minutes in duration, but can reach 6 minute on occasion. Initially, the seizuresoccurred 2 to 3 times per hour. There was increase in repetitive seizures between 00:00 to 01:00 on01/01/2023, reaching 5 times per hour, with subsequent interval of improvement. Seizures again recurred circa 03:45 PM, at the frequency of 1 to 2 times per hour. EKG was observed throughout the recording. IMPRESSION This is an abnormal cEEG due to 1) electrographic/electroclinical seizures of posterior midline/right parieto-occipital onset, 2) right frontal and bifrontal epileptiform discharges, 3) lateralized right hemispheric dysfunction, and 4) generalized slowing. CLINICAL CORRELATION: Between 12/31/2022 to 01/01/2023, the study was suggestive of increased tendency toward seizures, lateralized right hemispheric dysfunction, and moderate to severe encephalopathy. Electrographic/electroclinical seizures suggestive of midline/right posterior quadrant onset were observed, with occasionalclinical correlation in the form of left clonic facial movements and occasional rhythmic eye blinking were identified from the beginning of the epoch. The seizures increased in repetitive seizures between 00:00 to 01:00 on 01/01/2023, with subsequent interval of improvement, but again recurred circa 03:45 PM at the frequency of 1 to 2 times per hour. Sean Raymundo DO * MeetaMega - 01/01/2023 1:23 AM CDTProcedure(s): EEG LTM check has been performed, notes are in recording * Loraine Vargas - 12/31/2022 10:18 PM CDT MRI COMPATIBLE ELECTRODES WAS USED FOR THIS PATIENT,VITALS RECORDED ON EEG,IMPEDANCES LESS THAN 10 OHKMS documented in this encounter Consult Notes * Crescencio Carney MD - 01/05/2023 11:50 AM CDT Neurology Consult Note/History & Physical Patient: Mojgan Tabor Age: [age] year old Admission Date and Time: 12/31/2022 Subjective Reason for consult/Chief Complaint: History of Presenting Illness: Mojgan Tabor is a 62 year old male history of refractory focal epilepsy, h/o multiple CVA's w/ residual deficits (s/p Tracheostomy), PEG dependent, HTN, vascular dementia, alcohol use disorder. Admitted on 12/31/2022 from OSH for continued seizures and concern for status epilepticus. Initially admitted at [facility] on 12/18/22 for hypoxia and tachycardia. Found to have a RLLpneumonia. Sputum cultures were significant for Pseudomonas and Actinobacter resistant to multiple antibiotics. He completed a course of cefepime (EOT 12/25) and Bactrim (EOT 12/30) with improvement in leukocytosis and clinical symptoms. OSH initially planned to discharge on 12/28 however patient began having worsening seizures that were recurrent in nature. Home Clobazam was not on formulary at OSH. Neurology was consulted for concern of status epilepticus. Remainder of home Keppra 2gr BID, Valproate 750mg BID, and Lacosamide 200mg BID were continued. On 12/30 Neurology increased his Valproate to 750mg QID as patient continued to have recurrent seizures. He was transferred for higher level of care and continuous EEG given concern for subclinical seizures. In the MICU, patient started on Propofol drip, cEEG started and described seizure-like activity from 12/31 - 01/01. Home AEDs were restarted, seizures on cEEG were no longer identified from 01/01 - 01/03, waves instead consistent with encephalopathy. Nurses had initially reported eye twitching withstimulus (suctioning), no longer observed on exam. Past Medical History No history on file. Past Medical History: Diagnosis Date Cerebrovascular disease HTN (hypertension) Seizure (CMS/HCC) Past Surgical History: Procedure Laterality Date ENDOSCOPY, [...] Reactions Clonazepam Psychiatric hallucinations Family History FMHx: Unable to obtain family history due to altered mental status/non availability of family members for collateral info. Social History Social history couldn't be obtained due to altered mental status/non availability of family membersfor collateral info. Review of Systems - Unable to obtain from patient General - Denies changes in weight or [...] abnormalities Neurological - See HPI Objective BP 106/67 Pulse (!) 110 Temp 98.4 ??F (36.9 ??C) Resp 12 Ht 1.778 m (5' 10 ) Wt 65.8 kg (145 lb) SpO2 94% Temp (30hrs) Max:99.1 ??F (37.3 ??C) Body mass index is 20.81 kg/m??. Exam: General: A&Ox0, eyes open without tracking, does not follow commands. Con - NAD, afebrile Heent - NCAT, MMM, anicteric Neck - No JVD, LAD, trachea midline CV - RRR for age, normal s1/s2, no m/r/g Pulm - On Trach, vent CTAB, no w/r/r Abd - BS+, soft, NTND Ext: No c/c/e, 2+ dpp, normal ROM Cortical Function Mental Status Awake, alert, does not follow commands Orientation EARNEST Language EARNEST Visual Ivan EARNEST Neglect EARNEST Cranial Nerves II Pupils 4 mm and bilaterally reactive to light. Fundoscopic exam not performed. VIII Unable to assess if hearing is intact bilaterally to finger rub. III/IV/ Extraocular muscles intact. Unable to assess diplopia, ptosis, nystagmus or convergence abnormalities. IX/X EARNEST V EARNEST if facial sensation symmetric to light touch and intact bilaterally. Corneal reflex not examined. XI Head turning and shoulder shrug are intact. VII No facial palsy noted. XII EARNEST Motor Function Movement No abnormalities noted Bulk No abnormalities noted Tone No abnormalities noted Proximal Upper Distal Upper Proximal Lower Distal Lower Right 5/5 5/5 5/5 5/5 Left 5/5 5/5 5/5 5/5 Muscle Stretch Reflexes BI TRI BR PAT ACH TOES Right 2 2 2 2 2 Down Left 2 2 2 2 2 Down Sensory Light Touch EARNEST Noxious Stimuli Limited to No Withdrawal to Pain Temperature Not tested Pallesthesia Not tested Cerebellar FNF FREEDOM HKS Right Deferred Deferred Deferred Left Deferred Deferred Deferred Gait Deferred Labs: Results for orders placed or performed during the hospital encounter of 12/31/22 (from the past 24 hour(s)) VALPROIC ACID LEVEL Result Value Ref Range Valproic Acid Total 40 (L) 50 - 100 ug/mL CBC W AUTO DIFFERENTIAL Result Value Ref Range WBC 5.7 3.5 - 10.5 10??3/uL RBC 3.76 (L) 4.30 - 5.70 10??6/uL Hemoglobin 11.7 (L) 12.0 - 17.6 g/dL Hematocrit 35.3 35.2 - 51.7 % MCV 93.9 80.7 - 98.3 fL MCH 31.1 26.7 - 34.0 pg MCHC 33.1 30.8 - 35.9 g/dL RDW-SD 62.7 (H) 36.0 - 50.0 fL RDW-CV 18.3 (H) 11.2 - 14.8 % Platelet Count 193 150 - 400 10??3/uL MPV 12.9 9.4 - 12.9 fL nRBC Absolute 0.02 (H) 0 10??3/uL nRBC Auto 0.3 (H) 0 /100 WBC Neutrophils % 43.0 35.0 - 70.0 % Lymphocytes % 39.4 20.0 - 43.0 % Monocytes % 12.9 5.0 - 13.0 % Eosinophils % 3.7 0.0 - 6.0 % Basophil % 0.3 0.0 - 2.0 % Neutrophils Absolute 2.46 1.60 - 7.00 10??3/uL Lymphocyte Absolute 2.26 1.10 - 3.90 10??3/uL Monocytes Absolute 0.74 0.26 - 1.07 10??3/uL Eosinophils Absolute 0.21 0.00 - 0.47 10??3/uL Basophils Absolute 0.02 0.00 - 0.08 10??3/uL Immature Granulocytes % 0.7 0.0 - 1.0 % Immature Granulocytes Absolute 0.04 CALCIUM IONIZED WHOLE BLOOD Result Value Ref Range Calcium Ionized 1.28 mmol/L pH 7.44 7.35 - 7.45 pH Ionized Calcium pH Adjusted 1.30 1.19 - 1.34 mmol/L COMPREHENSIVE METABOLIC PANEL Result Value Ref Range BUN 17 7 - 26 mg/dL Creatinine 0.51 (L) 0.71 - 1.16 mg/dL Sodium 139 136 - 145 mmol/L Potassium 3.8 3.5 - 4.5 mmol/L Chloride 107 98 - 107 mmol/L CO2 28 22 - 29 mmol/L Glucose 98 70 - 115 mg/dL Calcium 9.6 8.4 - 10.2 mg/dL Protein Total 7.2 6.0 - 8.3 g/dL Albumin 2.8 (L) 3.4 - 5.0 g/dL Bilirubin Total 0.2 0.2 - 1.2 mg/dL Alkaline Phosphatase 105 40 - 150 U/L ALT 9 5 - 55 U/L AST 14 5 - 34 U/L Anion Gap 8 8 - 18 BUN/Creatinine Ratio 33 (H) 7 - 23 Osmolality Calculated 290 270 - 300 mOsm/kg Albumin/Globulin Ratio 0.6 (L) 1.1 - 2.3 eGFR by CKD-EPI >90 >=90 mL/min/1.73 m2 MAGNESIUM BLOOD Result Value Ref Range Magnesium 1.8 1.6 - 2.6 mg/dL PHOSPHORUS BLOOD Result Value Ref Range Phosphorus 2.4 (L) 2.8 - 5.1 mg/dL Neuroimaging: CT HEAD WO CONTRAST Result Date: 01/01/2023 IMPRESSION: 1.No acute intracranial hemorrhage, midline shift, or significant mass effect. 2.Pleasenote that CT is insensitive to nonhemorrhagic strokes and MRI of the brain should be considered if there is clinical concern for acute cerebral infarction. 3.Paranasal sinuses and mastoid air cell disease as outlined. > Interpreting Provider: Wojciech Neil MD on 01/01/2023 6:10 PM Assessment and Plan: 62 year old M with h/o refractory focal epilepsy seen at our epilepsy clinic transferred from OSH for ongoing repeated partial seizures. Initially had face twitching and blinking in our MICU that resolved with resuming his home AEDs and propofol drip. EEG concerning for electrographic and electroclinical seizures but last on 01/01 at 8:22AM. Propofol been weaned off since 01/04 with no evidence of seizures on continuous EEG. Recommendations: 1) Discontinue cEEG 2) Continue home Keppra 2g BID 3) Continue Depakene 750mg BID 4) Continue Onfi 20mg BID 5) Continue Vimpat 200mg BID 6) Rest per primary team Discussed with General Neurology Attending Physician, MD Tejas Yao DO Neurology Resident PGY-1 [facility] I have seen and examined the patient with the resident and I agree with the findings and plan of care as documented by the resident. Date of Service: 01/05/2023 History Had strokes and refractory focal epilepsy on multiple antiseizure medicines. He has been transferred again from OSH because of ongoing repeated partial seizures. He also has a Pseudomonas pneumonia which has been treated with cefepime. He has completed the course of antibiotics. Last chest x-ray is clear. He has a tracheostomy and PEG and is on the ventilator. He has not had any further episodes of partial seizures and twitching of the right face and the continuous EEG also reports thatthe electrographic seizures have stopped. He continues on antiseizure medicines and he has been weaned off the IV propofol drip and remains seizure-free.. Examination. Intubated ventilated. Awake and eyes are open but nonverbal. There are no visible twitches of the eyes of the face at present. Diagnosis. Multiple previous strokes and residual neurologic deficits. Refractory partial seizures in partial status epilepticus at present controlled with Keppra, Depakene, clobazam, Vimpat and propofol infusion. Plan. Continue present antiseizure medicines and clobazam 20 mg p.o. twice daily. Will receive lacosamide 200 mg twice daily we will discontinue the CEEG. Will continue his present dose of Keppra, Depakene, Onfi, Vimpat. Will see if he can be weaned off the ventilation Will follow Please see resident notes for details Crescencio Carney MD Attending Physician, Neurology * Caio Oliveira - 01/03/2023 12:29 PM CDTAssociated Order(s): IP CONSULT TO ANIMAL REHABILITATOR Images from the original note were not included. Facility Admission Note Admitted From: Transferred from [facility] - Emergency Department Discharge Facility Information: [facility] ([address] [place] [id number]) Level of Care (Skilled, Residential, Assisted, Correction, Halfway): [facility] - Medicaid Primary Payor at Facility: Payer/Plan Subscriber Name Rel Member # Group # MEDICAID - [place] -* MOJGAN TABOR Gary [id number] [address] [address] Can patient Return: Yes Continued Care and Services - Admitted Since 12/31/2022 Destination Service Provider Request Status Selected Services Address Phone Fax Patient Preferred [facility] (formerly [facility] and [facility])Pending - Request Sent N/A [address] [place] [id number] Current Capacity last updated by Yu Nguyễn on 04/21/[phone] Facility Contact: Physician Following at Facility: [facility] Does Patient/Family want them to Return?: Yes Family/Support Name/Contact: Adriane Hilliard (Sister) Number of Skilled Days Used (if applicable): Not applicable Prior Level of Functioning: Dependent Disposition/Anticipated Level of Care at Discharge: [facility] - Medicaid Anticipated mode of transport: Ambulance Special Testing Requirements: NA Comments: NA Name/Phone number: Caio Oliveira [phone] * Ana Castro RD/NOLAN - 01/01/2023 9:42 AM CDTAssociated Order(s): IP CONSULT TO NUTRITIONAL SERV Clinical Nutrition Assessment Brief Synopsis: Patient is diagnosed with severe malnutrition; Specific criteria can be found in assessment below Nutrition Plan: NPO + TF Start TF at 20 ml/hr, advance 10 ml q 24 hrs to be at goal by day 4 of intubation. *ESPEN guidelines recommend slow advancement rate for ICU patients* TF recommendations ON/OFF propofol- Continuous: Vital AF 1.2 Bruno at goal of 50 ml/hr. Provides 1440 kcal, 90 g protein, 133 g carbohydrate, and 973 ml free water +50 ml q 6 hrs free water flush or per MD if on IVF Recommendations to Physician: Code for severe malnutrition Comments: RD received consult per vent protocol. Pt intubated and sedated on propofol, no pressors infusing at this time. Propofol infusing at 7.21mL/hr; providing 190kcal of lipids. Pt w/GJ tube; TFof Vital AF 1.2 infusing at 20mL/hr; see TF recs above. LBM reported 01/01. Nutrition team familiar with pt from previous admission. Pt continues to meets ASPEN criteria for malnutrition, see malnutrition etiology below. Will continue to follow. propofol, 0-50 mcg/kg/min, Last Rate: 20 mcg/kg/min (01/01/23 0600) Assessment: Med/Surg History and Clinical Diagnoses: history of epilepsy, chronic hypoxic respiratory failure s/p trach and PEG, multiple CVA's with residual deficits, HTN, and vascular dementia who was transferred from OSH for status epilepticus Height: 177.8 cm (5' 10 ) Weight: 59.6 kg (131 lb 6.3 oz) BMI: Body mass index is 18.85 kg/m??. BMI Range: Normal IBW/lb (Calculated) Male: 166 , Recent Weights/Methods 12/05/2022 0321 12/06/2022 0311 12/07/2022 0600 12/08/2022 0400 12/14/2022 0400 12/16/2022 0407 12/31/2022 1933 01/01/2023 0334 Weight: 68.7 kg (151 lb 6.4 oz) 68.9 kg (152 lb) 70.8 kg (156 lb 1.6 oz) 70.8 kg (156 lb) 61.6 kg (135 lb 12.8 oz) 72.4 kg (159 lb 11.2 oz) 59.6 kg (131 lb 6.3 oz) 59.6 kg (131 lb 6.3 oz) Weight Method (Utilize Scales): Bedscale Bedscale Bedscale Bedscale Bedscale Bedscale Bedscale Bedscale Wt Comments: Questionable wt hx Diet order accuracy Current diet order: NPO Current tube feeding order: Vital AF 1.2 at 20mL/hr Nutrition recommendation: alter/change nutrition order P.O.Intake for the past 48 hrs: No data recorded Supplement(s) Consumed- Last 48 hours None Food Allergies: No known food allergies Chewing/Swallowing: (vent) Pain affecting intake: No Estimated Needs: KCAL: 9524-1082 (20-25kcal/kg (ABW)) Protein (g): 90g (1.5g/kg (ABW)) Fluid (ml): 1 ml/kcal Needs based on: Kcal/kg- (Comment) (ABW 59.6kg) Recommended Access Route: TF Malnutrition Etiology: Malnutrition in the context of: chronic disease, Malnutrition Severity: Severe Protein Calorie BMI: Body mass index is 18.85 kg/m??. GI Concerns: (J-tube) Nutrition Focused Physical Assessment: Loss of Subcutaneous Fat Orbital: Severe Buccal: Severe Muscle Loss Temples (Temporalis Muscle): Severe Clavicles (Pectoralis & Deltoids): Severe Shoulders (Deltoids): Severe Thigh (Quadriceps): Severe Pertinent Nutrition Labs: Recent Labs Component Name 01/01/23 0422 12/31/22205512/16/22 0349 11/26/22 0310 11/25/22 0335 BUN 19 19 12 - 16 CREATININE 0.61* 0.60* 0.52* - 0.45* NA 130* 131* 133* - 138 POTASSIUM 4.9* 4.8* 4.7* - 4.5 CL 101 102 105 - 108* CO2 27 24 21* - 26 GLUCOSE 84 96 120* - 91 CALCIUM 9.4 9.6 9.3 - 9.5 PROT 6.7 6.9 - - 6.9 ALB 2.6* 2.7* 2.3* - 2.6* TBILI 0.2 0.2 - - 0.2 ALKPHOS 92 100 - - 85 ALT 8 8 - - 24 AST 12 12 - - 24 ANIONGAP 7* 10 12 - 9 BCR 31* 32* 23 - 36* OSMOLALITY 271 274 277 - 287 AGRATIO 0.6* 0.6* - - 0.6* EGFR >90 >90 >90 - >90 - = values in this interval not displayed. Pertinent Nutrition Medications: Current Facility-Administered Medications Medication ??? 0.9% NaCl injection 3 mL And ??? 0.9% NaCl injection 1-10 mL ??? artificial tears ophthalmic ointment ??? chlorhexidine (Peridex) 0.12 % oral solution 15 mL ??? cloBAZam (Onfi) tablet 40 mg ??? enoxaparin (Lovenox) injection 40 mg ??? iopamidol (Isovue 300) 61 % contrast 30 mL ??? lacosamide (Vimpat) tablet 200 mg ??? levETIRAcetam (Keppra) tablet 2,000 mg ??? pantoprazole (Protonix) injection 40 mg ??? propofol (Diprivan) infusion ??? valproic acid (Depakene) solution 750 mg Skin/Wound: NWL Nutrition Care Process (1) Nutrition Diagnostic Statement: Malnutrition severity: : Severe related to:: increased nutrient needs due to illness;alteration in gastrointestinal tract structureor function as evidenced by:: BMI less than 19 Nutrition Diagnostic Statement Progress: New diagnostic statement established Nutrition Intervention: Enteral nutrition: Monitoring: TF, BM, labs, meds, weight Evaluation: Nutrition Goal: Total intake will meet estimated nutrient needs Nutrition Goal Timeframe: Throughout stay Nutrition Goal Progress: New goal established [id number] * Crescencio Carney MD - 01/01/2023 1:39 AM CDT Neurology Consult Note Patient: Mojgan Tabor Age: [age] year old Admission Date and Time: 12/31/2022 Reason for consult/Chief Complaint: Seizures History of Presenting Illness: per the primary team with my edits Mojgan Tabor is 62 year old male with history of refractory focal epilepsy, H/o multiple CVA's w/ residual deficits (s/p Tracheostomy), PEG dependent, HTN, vascular dementia, alcohol use disorder. admitted on 12/31/2022 from OSH for continued seizures and concern for status epilepticus. Initially admitted at [facility] on 12/18/22 for hypoxia and tachycardia. Found to have a RLLpneumonia. Sputum cultures were significant for Pseudomonas and Actinobacter resistant to multiple antibiotics. He completed a course of cefepime (EOT 12/25) and Bactrim (EOT 12/30) with improvement in leukocytosis and clinical symptoms. OSH initially planned to discharge on 12/28 however patient began having worsening seizures that were recurrent in nature. Home Clobazam was not on formulary at OSH. Neurology was consulted for concern of status epilepticus. Remainder of home Keppra 2gr BID, Valproate 750mg BID, and Lacosamide 200mg BID were continued. On 12/30 Neurology increased his Valproate to 750mg QID as patient continued to have recurrent seizures. He was transferred for higher level of care and continuous EEG given concern for subclinical seizures. In the MICU, patient started on Propofol drip, hooked up to cEEG and restarted his home AEDs. EEG showed initially seizure like activity that with restarting of his meds, brain waves improved, significantly. Past Medical History No history on file. Past Medical History: Diagnosis Date CVA (cerebral vascular accident) ([facility]/HCC) HTN (hypertension) Seizure ([facility]) Past Surgical History: Procedure Laterality Date ENDOSCOPY, [...] Narrative Not on file Review of Systems Unable to perform Objective: BP 118/73 Pulse 73 Temp 97.4 ??F (36.3 ??C) (Axillary) Resp 12 Wt 59.6 kg (131 lb 6.3 oz) SpO2 100% Temp (30hrs) Max:97.4 ??F (36.3 ??C) Body mass index is 18.85 kg/m??. Exam: Patient on tracheostomy is sedated and comatose (propofol) Does not withdraw to moderate painful stimuli Labs: Reviewed. 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 Seizure semiology at OSH unclear. Initially had face twitching and blinking in our MICU that resolved with resuming his home AEDs and propofol drip. Recommendations: 1) Resume home Keppra 2gr BID 2) Resume Depakene 750mg BID, 3) Resume Onfi 20mg BID 4) Resume Vimpat 200mg BID 5) Patient on CEEG and propofol Drip 6) Treatment of his PNA per the primary team can improve his threshold for seizures Discussed with Attending Physician, Dr. Carney Thank you for the consult Duong Lau MD Neurology Resident I have seen and examined the patient with the resident and I agree with the findings and plan of care as documented by the resident. Date of Service: 01/01/2023 History is strokes and refractory focal epilepsy on multiple antiseizure medicines. He has been transferred again from OSH because of ongoing repeated partial seizures. He also has a Pseudomonas pneumonia which has been treated with cefepime. He has completed the course of antibiotics. Last chest x-ray is clear. He has a tracheostomy and PEG and is on the ventilator. According to nursing he is getting frequent twitches of the right side of the face every few minutes despite IV propofol drip. Examination. Intubated ventilated sedated and unresponsive to painful stimuli. He displays twitching of his eyes and eyelids and right face at intervals. EEG during these episodes shows epileptiform discharges. Diagnosis. Multiple previous strokes and residual neurologic deficits. Refractory partial seizures now occurring in partial status epilepticus. Plan. We will continue to keep him intubated ventilated and sedated and in ICU. We will review the need to recommence antibiotics. The cefepime used in the past has been stopped. Continue vitamin D, will load of the 40 mg p.o. twice daily today from tomorrow to continue 20 mg. Will receive lacosamide 200 mg twice daily we will continue the CEEG. If the status epilepticus continues consider IV Versed drip to stop seizures. Please see resident notes for details Crescencio Carney MD Attending Physician, Neurology documented in this encounter Miscellaneous Notes * Coding Query - Ck Small MD - 01/05/2023 8:44 AM CDT DOCUMENTATION CLARIFICATION REQUEST Use the F2 function alanis to complete the query. Click on ???Sign?? to file the note. TO: Dr. Small FROM: Agnieszka Palumbo RN CCDS, Email: [email or web address] Patient Name: Mojgan Tabor Please review the clinical information below and clarify the etiology of seizures: ??? Seizures due to prior strokes ??? Seizures due to other etiology (please specify) ??? Other (please specify) ??? Unable to determine The medical record reflects the following: o Risk Factors: multiple CVAs with residual deficits, vascular dementia, epilepsy, history of alcohol use disorder o Clinical Findings: H&P / status epilepticus Head CT 01/01 Advanced cerebral and cerebellar volume loss with associated ex vacuo ventricular dilation, superimposed normal pressure hydrocephalus cannot be totally excluded Multiple small chronic infarcts in bilateral thalami, bilateral basal ganglia, isabella, and bilateral periventricular white matter Decrease caliber of midbrain, likely related to Wallerian degeneration Chronic encephalomalacia in right occipital lobe Chronic small vessel ischemic disease EEG 01/01 seizures of posterior midline/right parieto-occipital onset, right frontal and bifrontal epileptiform discharged, lateralized right hemispheric dysfunction, generalized slowing, increased tendency toward seizures, lateralized right hemispheric dysfunction, and moderate to severe encephalopat hy, midline/right posterior quadrant onset o Treatment: seizure precautions, neuro checks, Onfi, Valproic Acid, Vimpat, Keppra, Propofol, Ativan, continuous EEG monitoring, ICU monitoring PROVIDER RESPONSE (Use F2 to respond) Seizures due to prior strokes Please provide your clinical opinion and findings to support the diagnosis in the progress notes & carry it through into your discharge summary. THIS DOCUMENT IS MAINTAINED A PERMANENT PART OF THE MEDICAL RECORD. * Coding Query - Ck Small MD - 01/04/2023 10:41 AM CDT DOCUMENTATION CLARIFICATION REQUEST Use the F2 function alanis to complete the query. Click on ???Sign?? to file the note. TO: Dr. Small FROM: Agnieszka Palumbo RN CCDS, Email: [email or web address] Patient Name: Mojgan Tabor Please review the clinical information below and clarify the degree of malnutrition: ??? Severe protein calorie malnutrition ??? Other degree of malnutrition (please specify) ??? Unable to determine ??? Other, please specify The medical record reflects the following: o Risk Factors: intractable epilepsy, chronic respiratory failure s/p trach and PEG, multiple CVAs with residual deficits, vascular dementia, hyponatremia consider SIADH, iron deficiency anemia, hypertriglyceridemia o Clinical Findings: ICU Note 01/02 undernutrition with protein calorie malnutrition Nutrition Consult 01/01 Severe protein calorie malnutrition in chronic disease Loss of Subcutaneous Fat: Severe (buccals, orbitals) Loss of Muscle: Severe (temporalis, pectoralis, deltoids, quadriceps) Increased nutrient needs due to illness, alteration in GI tract structure/function Height 5' 10 Weight 131 lbs, 6.3 oz. bmi 18.85 o Treatment: enteral nutrition, NPO, iron, IV fluids, Protonix, aspiration precautions, Dietitian to monitor TF, BM, labs, meds, and weight PROVIDER RESPONSE (Use F2 to respond) Severe protein calorie malnutrition Please provide your clinical opinion and findings to support the diagnosis in the progress notes & carry it through into your discharge summary. THIS DOCUMENT IS MAINTAINED A PERMANENT PART OF THE MEDICAL RECORD. documented in this encounter Plan of Treatment Upcoming Encounters Date Type Department Care Team (Late st Contact Info) Description 12/05/2024 1:00 PM CDT Office Visit [facility] - Neurology [address] [facility] [place] [address] Sean Raymundo, DO [address] [facility] [address] [facility] [place] [address] Scheduled Orders Name Type Priority Associated Diagnoses Orde r Schedule OXYGEN WITH TITRATION PROTOCOL Respiratory Care Routine ONCE for 1 Occurrences starting 01/01/2023 until 01/01/2023 documented as of this encounter Procedures Procedure Name Priority Date/Time Associated Diagnosis Comments TRIGLYCERIDES BLOOD Routine 01/14/2023 9 :35 AM CDT CALCIUM IONIZED WHOLE BLOOD AM Draw 01/14/2023 4:24 AM CDT CBC W AUTO DIFFERENTIAL AM Draw 01/14/2023 4:24 AM CDT COMPREHENSIVE METABOLIC PANEL AM Draw 01/14/2023 4:24 AM CDT PHOSPHORUS BLOOD AM Draw 01/14/2023 4:24 AM CDT MAGNESIUM BLOOD AM Draw 01/14/2023 4:24 AM CDT CALCIUM IONIZED WHOLE BLOOD AM Draw 01/13/2023 4:32 AM CDT CBC W AUTO DIFFERENTIAL AM Draw 01/13/2023 4:32 AM CDT COMPREHENSIVE METABOLIC PANEL AM Draw 01/13/2023 4:32 AM CDT PHOSPHORUS BLOOD AM Draw 01/13/2023 4:32 AM CDT MAGNESIUM BLOOD AM Draw 01/13/2023 4:32 AM CDT XR CHEST 1VW PORTABLE STAT 01/12/2023 3:07 PM CDT Hypoxia Acute respiratory failure with hypoxia (HCC) CALCIUM IONIZED WHOLE BLOOD AM Draw 01/12/2023 3:50 AM CDT CBC W AUTO DIFFERENTIAL AM Draw 01/12/2023 3:50 AM CDT COMPREHENSIVE METABOLIC PANEL AM Draw 01/12/2023 3:50 AM CDT PHOSPHORUS BLOOD AM Draw 01/12/2023 3:50 AM CDT MAGNESIUM BLOOD AM Draw 01/12/2023 3:50 AM CDT BLOOD GASES ANA + COOX PANEL Routine 01/11/2023 10:42 AM CDT CALCIUM IONIZED WHOLE BLOOD AM Draw 01/11/2023 4:09 AM CDT CBC W AUTO DIFFERENTIAL AM Draw 01/11/2023 4:09 AM CDT COMPREHENSIVE METABOLIC PANEL AM Draw 01/11/2023 4:09 AM CDT PHOSPHORUS BLOOD AM Draw 01/11/2023 4:09 AM CDT MAGNESIUM BLOOD AM Draw 01/11/2023 4:09 AM CDT OT EVAL AND TREAT Routine 01/10/2023 2:2 0 PM CDT PT EVAL AND TREAT Routine 01/10/2023 2:2 0 PM CDT CALCIUM IONIZED WHOLE BLOOD AM Draw 01/10/2023 3:48 AM CDT CBC W AUTO DIFFERENTIAL AM Draw 01/10/2023 3:48 AM CDT COMPREHENSIVE METABOLIC PANEL AM Draw 01/10/2023 3:48 AM CDT PHOSPHORUS BLOOD AM Draw 01/10/2023 3:48 AM CDT MAGNESIUM BLOOD AM Draw 01/10/2023 3:48 AM CDT VALPROIC ACID LEVEL Routine 01/10/2023 3 :48 AM CDT CALCIUM IONIZED WHOLE BLOOD AM Draw 01/09/2023 4:15 AM CDT CBC W AUTO DIFFERENTIAL AM Draw 01/09/2023 4:15 AM CDT COMPREHENSIVE METABOLIC PANEL AM Draw 01/09/2023 4:15 AM CDT PHOSPHORUS BLOOD AM Draw 01/09/2023 4:15 AM CDT MAGNESIUM BLOOD AM Draw 01/09/2023 4:15 AM CDT CALCIUM IONIZED WHOLE BLOOD AM Draw 01/08/2023 3:50 AM CDT CBC W AUTO DIFFERENTIAL AM Draw 01/08/2023 3:50 AM CDT COMPREHENSIVE METABOLIC PANEL AM Draw 01/08/2023 3:50 AM CDT PHOSPHORUS BLOOD AM Draw 01/08/2023 3:50 AM CDT MAGNESIUM BLOOD AM Draw 01/08/2023 3:50 AM CDT BLOOD GASES ANA + COOX PANEL Routine 01/07/2023 12:24 PM CDT CALCIUM IONIZED WHOLE BLOOD AM Draw 01/07/2023 4:25 AM CDT CBC W AUTO DIFFERENTIAL AM Draw 01/07/2023 4:25 AM CDT COMPREHENSIVE METABOLIC PANEL AM Draw 01/07/2023 4:25 AM CDT PHOSPHORUS BLOOD AM Draw 01/07/2023 4:25 AM CDT MAGNESIUM BLOOD AM Draw 01/07/2023 4:25 AM CDT CALCIUM IONIZED WHOLE BLOOD AM Draw 01/06/2023 4:11 AM CDT CBC W AUTO DIFFERENTIAL AM Draw 01/06/2023 4:11 AM CDT COMPREHENSIVE METABOLIC PANEL AM Draw 01/06/2023 4:11 AM CDT PHOSPHORUS BLOOD AM Draw 01/06/2023 4:11 AM CDT MAGNESIUM BLOOD AM Draw 01/06/2023 4:11 AM CDT CALCIUM IONIZED WHOLE BLOOD AM Draw 01/05/2023 3:41 AM CDT CBC W AUTO DIFFERENTIAL AM Draw 01/05/2023 3:41 AM CDT COMPREHENSIVE METABOLIC PANEL AM Draw 01/05/2023 3:41 AM CDT PHOSPHORUS BLOOD AM Draw 01/05/2023 3:41 AM CDT MAGNESIUM BLOOD AM Draw 01/05/2023 3:41 AM CDT VALPROIC ACID LEVEL Routine 01/04/2023 8 :03 PM CDT CALCIUM IONIZED WHOLE BLOOD AM Draw 01/04/2023 3:17 AM CDT CBC W AUTO DIFFERENTIAL AM Draw 01/04/2023 3:17 AM CDT COMPREHENSIVE METABOLIC PANEL AM Draw 01/04/2023 3:17 AM CDT PHOSPHORUS BLOOD AM Draw 01/04/2023 3:17 AM CDT MAGNESIUM BLOOD AM Draw 01/04/2023 3:17 AM CDT BLOOD GASES ART + COOX PANEL STAT 01/03/2023 11:32 AM CDT CALCIUM IONIZED WHOLE BLOOD AM Draw 01/03/2023 3:39 AM CDT CBC W AUTO DIFFERENTIAL AM Draw 01/03/2023 3:39 AM CDT COMPREHENSIVE METABOLIC PANEL AM Draw 01/03/2023 3:39 AM CDT PHOSPHORUS BLOOD AM Draw 01/03/2023 3:39 AM CDT MAGNESIUM BLOOD AM Draw 01/03/2023 3:39 AM CDT CK BLOOD Timed 01/02/2023 10:08 AM CDT CALCIUM IONIZED WHOLE BLOOD AM Draw 01/02/2023 3:39 AM CDT CBC W AUTO DIFFERENTIAL AM Draw 01/02/2023 3:39 AM CDT TRIGLYCERIDES BLOOD AM Draw 01/02/2023 3 :39 AM CDT COMPREHENSIVE METABOLIC PANEL AM Draw 01/02/2023 3:39 AM CDT PHOSPHORUS BLOOD AM Draw 01/02/2023 3:39 AM CDT MAGNESIUM BLOOD AM Draw 01/02/2023 3:39 AM CDT FOLATE Routine 01/02/2023 3:39 AM CDT VITAMIN B12 AM Draw 01/02/2023 3:39 AM CDT IRON + TRANSFERRIN PANEL Routine 01/02/2023 3:39 AM CDT FERRITIN Routine 01/02/2023 3:39 AM CDT CORTISOL BLOOD AM Routine 01/02/2023 3:[address] HEAD WO CONTRAST Routine 01/01/2023 1 :03 PM CDT Acute encephalopathy CALCIUM IONIZED WHOLE BLOOD AM Draw 01/01/2023 4:22 AM CDT TSH REFLEX FREE T4 AM Draw 01/01/2023 4: 22 AM CDT CBC W AUTO DIFFERENTIAL AM Draw 01/01/2023 4:22 AM CDT COMPREHENSIVE METABOLIC PANEL AM Draw 01/01/2023 4:22 AM CDT PHOSPHORUS BLOOD AM Draw 01/01/2023 4:22 AM CDT MAGNESIUM BLOOD AM Draw 01/01/2023 4:22 AM CDT AMMONIA STAT 01/01/2023 12:46 AM CDT LEVETIRACETAM LEVEL STAT 12/31/2022 1 1:05 PM CDT VALPROIC ACID LEVEL STAT 12/31/2022 1 1:05 PM CDT BLOOD GASES ART + COOX PANEL Routine 12/31/2022 10:17 PM CDT EKG 12-LEAD Routine 12/31/2022 9:09 PM CDT Status epilepticus (HCC) COMPREHENSIVE METABOLIC PANEL STAT 12/31/2022 8:56 PM CDT PHOSPHORUS BLOOD STAT 12/31/2022 8:56 PM CDT MAGNESIUM BLOOD STAT 12/31/2022 8:56 PM CDT TROPONIN-I HIGH SENSITIVE STAT 12/31/2022 8:53 PM CDT PT-INR [facility] STAT 12/31/2022 8:53 PM CDT CALCIUM IONIZED WHOLE BLOOD STAT 12/31/2022 8:53 PM CDT CBC W AUTO DIFFERENTIAL STAT 12/31/2022 8:53 PM CDT LACTIC ACID BLOOD STAT 12/31/2022 8:5 3 PM CDT BLOOD GASES ART + COOX PANEL STAT 12/31/2022 8:53 PM CDT XR ABDOMEN KUB STAT 12/31/2022 8:48 PM CDT PEG (percutaneous endoscopic gastrostomy) status (HCC) XR CHEST 1VW PORTABLE STAT 12/31/2022 8:35 PM CDT Tracheostomy in place (HCC) documented in this encounter Results * (ABNORMAL) TRIGLYCERIDES BLOOD (01/14/2023 9:35 AM CDT) Triglycerides 339(H) <150 mg/dL 01/14/2023 10:09 AM CDT [facility] Comment: ATP III Classification of Triglycerides: ?<150 mg/dL: ??Normal ? 150 - 199 mg/dL: ??Borderline High ? 200 - 400 mg/dL: ??High ?>500 mg/dL: ??Very High Blood BLOOD SPECIMEN / Unknown Venipuncture / Unknown 01/14/2023 9:35 AM CDT 01/14/2023 9:43 AM CDT Lisset Norris MD LAB - CHEMISTRY MARSHAL MEDEROS [facility] [address] [place] [address], [facility] [phone] * (ABNORMAL) PHOSPHORUS BLOOD (01/14/2023 4:24 AM CDT) Phosphorus 2.6(L) 2.8 - 5.1 mg/dL 01/14/2023 5:02 AM CDT [facility] Blood BLOOD SPECIMEN / Unknown Venipuncture / Unknown 01/14/2023 4:24 AM CDT 01/14/2023 4:31 AM CDT Ck Small MD LAB - CHEMISTRY ORDERABLES [facility] [address] [place] [phone], [facility] [phone] * MAGNESIUM BLOOD (01/14/2023 4:24 AM CDT) Magnesium 1.7 1.6 - 2.6 mg/dL 01/14/2023 5:02 AM [facility] Blood BLOOD SPECIMEN / Unknown Venipuncture / Unknown 01/14/2023 4:24 AM CDT 01/14/2023 4:31 AM CDT Ck Small MD LAB - CHEMISTRY ORDERABLES Performing Organization Address City/[facility]/ZIP Co de Phone Number [address] [address], [facility] [phone] * (ABNORMAL) COMPREHENSIVE METABOLIC PANEL (01/14/2023 4:24 AM CDT) Pathologist [facility] [place] BUN 12 7 - 26 mg/dL 01/14/2023 5:02 AM [facility] Creatinine 0.37(L) 0.71 - 1.16 mg/dL 01/14/2023 5:02 AM [facility] Sodium 140 136 - 145 mmol/L 01/14/2023 5:02 AM [facility] Potassium 3.8 3.5 - 4.5 mmol/L 01/14/2023 5:02 AM [facility] Chloride 107 98 - 107 mmol/L 01/14/2023 5:02 AM [facility] CO2 29 22 - 29 mmol/L 01/14/2023 5:02 AM [facility] Glucose 103 70 - 115 mg/dL 01/14/2023 5:02 AM [facility] Calcium 9.4 8.4 - 10.2 mg/dL 01/14/2023 5:02 AM [facility] Protein Total 6.7 6.0 - 8.3 g/dL 01/14/2023 5:02 AM [facility] Albumin 2.6(L) 3.4 - 5.0 g/dL 01/14/2023 5:02 AM [facility] Bilirubin Total 0.2 0.2 - 1.2 mg/dL 01/14/2023 5:02 AM [facility] Alkaline Phosphatase 77 40 - 150 U/L 01/14/2023 5:02 AM [facility] ALT 7 5 - 55 U/L 01/14/2023 5:02 AM [facility] AST 13 5 - 34 U/L 01/14/2023 5:02 AM [facility] Anion Gap 8 8 - 01/14/2023 5:02 AM [facility] BUN/Creatinine Ratio 32(H) 7 - 23 01/14/2023 5:02 AM [facility] Osmolality Calculated 290 270 - 300 mOsm/kg 01/14/2023 5:02 AM [facility] Albumin/Globulin Ratio 0.6(L) 1.1 - 2.3 01/14/2023 5:02 AM [facility] eGFR by CKD-EPI >90 >=90 mL/min/1.7 3 m2 01/14/2023 5:02 AM [facility] Blood BLOOD SPECIMEN / Unknown Venipuncture / Unknown 01/14/2023 4:24 AM CDT 01/14/2023 4:31 AM [facility] Ck Small MD LAB - CHEMISTRY ORDERABLES [facility] [address] [place] [address], [facility] [phone] * CALCIUM IONIZED WHOLE BLOOD (01/14/2023 4:24 AM [facility]) Calcium Ionized 1.32 mmol/L 01/14/2023 4:31 AM [facility] pH 7.42 7.35 - 7.45 pH 01/14/2023 4:31 AM CDT [facility] Ionized Calcium pH Adjusted 1.33 1.19 - 1.34 mmol/L 01/14/2023 4:31 AM [facility] Blood BLOOD SPECIMEN / Unknown Venipuncture / Unknown 01/14/2023 4:24 AM CDT 01/14/2023 4:29 AM CDT Ck Small MD LAB - CHEMISTRY ORDERABLES Performing Organization Address [facility]/State/[facility] Co de Phone Number [facility] [address] [place] [address] [phone] * (ABNORMAL) CBC W AUTO DIFFERENTIAL (01/14/2023 4:24 AM CDT) WBC 6.8 3.5 - 10.5 10? 3 /uL 01/14/2023 4:50 AM [facility] RBC 3.58(L) 4.30 - 5.70 10? 6 /uL 01/14/2023 4:50 AM [facility] Hemoglobin 11.0(L) 12.0 - 17.6 g/dL 01/14/2023 4:50 AM [facility] Hematocrit 34.4(L) 35.2 - 51.7 % 01/14/2023 4:50 AM [facility] MCV 96.1 80.7 - 98.3 fL 01/14/2023 4:50 AM [facility] MCH 30.7 26.7 - 34.0 pg 01/14/2023 4:50 AM [facility] MCHC 32.0 30.8 - 35.9 g/dL 01/14/2023 4:50 AM [facility] RDW-SD 62.2(H) 36.0 - 50.0 fL 01/14/2023 4:50 AM [facility] RDW-CV 17.6(H) 11.2 - 14.8 % 01/14/2023 4:50 AM [facility] Platelet Count 186 150 - 400 10? 3 /uL 01/14/2023 4:50 AM [facility] MPV 11.2 9.4 - 12.9 fL 01/14/2023 4:50 AM [facility] nRBC Absolute 0.00 0 10? 3 /uL 01/14/2023 4:50 AM [facility] nRBC Auto 0.0 0 /100 WBC 01/14/2023 4:50 AM [facility] Neutrophils % 55.8 35.0 - 70.0 % 01/14/2023 4:50 AM [facility] Lymphocytes % 32.2 20.0 - 43.0 % 01/14/2023 4:50 AM [facility] Monocytes % 9.2 5.0 - 13.0 % 01/14/2023 4:50 AM [facility] Eosinophils % 2.2 0.0 - 6.0 % 01/14/2023 4:50 AM [facility] Basophil % 0.3 0.0 - 2.0 % 01/14/2023 4:50 AM [facility] Neutrophils Absolute 3.78 1.60 - 7.00 10? 3 /uL 01/14/2023 4:50 AM [facility] Lymphocyte Absolute 2.18 1.10 - 3.90 10? 3 /uL 01/14/2023 4:50 AM [facility] Monocytes Absolute 0.62 0.26 - 1.07 10? 3 /uL 01/14/2023 4:50 AM [facility] Eosinophils Absolute 0.15 0.00 - 0.47 10? 3 /uL 01/14/2023 4:50 AM [facility] Basophils Absolute 0.02 0.00 - 0.08 10? 3 /uL 01/14/2023 4:50 AM [facility] Immature Granulocytes % 0.3 0.0 - 1.0 % 01/14/2023 4:50 AM [facility] Immature Granulocytes Absolute 0.02 01/14/2023 4:50 AM [facility] Blood BLOOD SPECIMEN / Unknown Venipuncture / Unknown 01/14/2023 4:24 AM CDT 01/14/2023 4:31 AM CDT Ck Small MD LAB - HEMATOLOG Y ORDERABLES [address] [address], [facility] [phone] * (ABNORMAL) PHOSPHORUS BLOOD (01/13/2023 4:32 AM CDT) Phosphorus 2.7(L) 2.8 - 5.1 mg/dL 01/13/2023 5:09 AM CDT [facility] Blood BLOOD SPECIMEN / Unknown Venipuncture / Unknown 01/13/2023 4:32 AM CDT 01/13/2023 4:39 AM CDT Ck Small MD LAB - CHEMISTRY ORDERABLES Performing Organization Address City/[facility]/ZIP Co de Phone Number [address] [phone], [facility] [phone] * MAGNESIUM BLOOD (01/13/2023 4:32 AM CDT) Pathologist [facility] Magnesium 1.7 1.6 - 2.6 mg/dL 01/13/2023 5:09 AM CDT [facility] Blood BLOOD SPECIMEN / Unknown Venipuncture / Unknown 01/13/2023 4:32 AM CDT 01/13/2023 4:39 AM CDT Ck Small MD LAB - CHEMISTRY ORDERABLES Performing Organization Address City/[facility]/ZIP Co de Phone Number [address] [address], [place] [phone] * (ABNORMAL) COMPREHENSIVE METABOLIC PANEL (01/13/2023 4:32 AM CDT) BUN 15 7 - 26 mg/dL 01/13/2023 5:09 AM CDT [facility] Creatinine 0.40(L) 0.71 - 1.16 mg/dL 01/13/2023 5:09 AM CDT [facility] Sodium 139 136 - 145 mmol/L 01/13/2023 5:09 AM CDT [facility] Potassium 3.6 3.5 - 4.5 mmol/L 01/13/2023 5:09 AM [facility] Chloride 106 98 - 107 mmol/L 01/13/2023 5:09 AM [facility] CO2 28 22 - 29 mmol/L 01/13/2023 5:09 AM [facility] Glucose 103 70 - 115 mg/dL 01/13/2023 5:09 AM [facility] Calcium 9.3 8.4 - 10.2 mg/dL 01/13/2023 5:09 AM [facility] Protein Total 6.8 6.0 - 8.3 g/dL 01/13/2023 5:09 AM [facility] Albumin 2.6(L) 3.4 - 5.0 g/dL 01/13/2023 5:09 AM [facility] Bilirubin Total 0.2 0.2 - 1.2 mg/dL 01/13/2023 5:09 AM [facility] Alkaline Phosphatase 81 40 - 150 U/L 01/13/2023 5:09 AM [facility] ALT 8 5 - 55 U/L 01/13/2023 5:09 AM [facility] AST 11 5 - 34 U/L 01/13/2023 5:09 AM [facility] Anion Gap 9 8 - 18 01/13/2023 5:09 AM [facility] BUN/Creatinine Ratio 38(H) 7 - 23 01/13/2023 5:09 AM [facility] Osmolality Calculated 289 270 - 300 mOsm/kg 01/13/2023 5:09 AM [facility] Albumin/Globulin Ratio 0.6(L) 1.1 - 2.3 01/13/2023 5:09 AM [facility] eGFR by CKD-EPI >90 >=90 mL/min/1.7 3 m2 01/13/2023 5:09 AM [facility] Blood BLOOD SPECIMEN / Unknown Venipuncture / Unknown 01/13/2023 4:32 AM CDT 01/13/2023 4:39 AM CDT Ck Small MD LAB - CHEMISTRY ORDERABLES [facility] [address] [place] [phone], [facility] [phone] * CALCIUM IONIZED WHOLE BLOOD (01/13/2023 4:32 AM CDT) [facility] Calcium Ionized 1.31 mmol/L 01/13/2023 4:39 AM CDT [facility] pH 7.37 7.35 - 7.45 pH 01/13/2023 4:39 AM T [facility] Ionized Calcium pH Adjusted 1.29 1.19 - 1.34 mmol/L 01/13/2023 4:39 AM T [facility] Blood BLOOD SPECIMEN / Unknown Venipuncture / Unknown 01/13/2023 4:32 AM CDT 01/13/2023 4:37 AM CDT Ck Small MD LAB - CHEMISTRY ORDERABLES Performing Organization Address [facility]/State/ZIP Co de Phone Number [address] [address], [facility] [phone] * (ABNORMAL) CBC W AUTO DIFFERENTIAL (01/13/2023 4:32 AM CDT) [facility] WBC 7.6 3.5 - 10.5 10? 3 /uL 01/13/2023 4:51 AM [facility] RBC 3.55(L) 4.30 - 5.70 10? 6 /uL 01/13/2023 4:51 AM [facility] Hemoglobin 11.0(L) 12.0 - 17.6 g/dL 01/13/2023 4:51 AM [facility] Hematocrit 34.5(L) 35.2 - 51.7 % 01/13/2023 4:51 AM [facility] MCV 97.2 80.7 - 98.3 fL 01/13/2023 4:51 AM [facility] MCH 31.0 26.7 - 34.0 pg 01/13/2023 4:51 AM [facility] MCHC 31.9 30.8 - 35.9 g/dL 01/13/2023 4:51 AM [facility] RDW-SD 62.8(H) 36.0 - 50.0 fL 01/13/2023 4:51 AM [facility] RDW-CV 17.6(H) 11.2 - 14.8 % 01/13/2023 4:51 AM [facility] Platelet Count 186 150 - 400 10? 3 /uL 01/13/2023 4:51 AM [facility] MPV 11.4 9.4 - 12.9 fL 01/13/2023 4:51 AM [facility] nRBC Absolute 0.00 0 10? 3 /uL 01/13/2023 4:51 AM [facility] nRBC Auto 0.0 0 /100 WBC 01/13/2023 4:51 AM [facility] Neutrophils % 58.3 35.0 - 70.0 % 01/13/2023 4:51 AM [facility] Lymphocytes % 29.4 20.0 - 43.0 % 01/13/2023 4:51 AM [facility] Monocytes % 9.9 5.0 - 13.0 % 01/13/2023 4:51 AM [facility] Eosinophils % 1.8 0.0 - 6.0 % 01/13/2023 4:51 AM [facility] Basophil % 0.3 0.0 - 2.0 % 01/13/2023 4:51 AM [facility] Neutrophils Absolute 4.42 1.60 - 7.00 10? 3 /uL 01/13/2023 4:51 AM [facility] Lymphocyte Absolute 2.23 1.10 - 3.90 10? 3 /uL 01/13/2023 4:51 AM [facility] Monocytes Absolute 0.75 0.26 - 1.07 10? 3 /uL 01/13/2023 4:51 AM [facility] Eosinophils Absolute 0.14 0.00 - 0.47 10? 3 /uL 01/13/2023 4:51 AM [facility] Basophils Absolute 0.02 0.00 - 0.08 10? 3 /uL 01/13/2023 4:51 AM [facility] Immature Granulocytes % 0.3 0.0 - 1.0 % 01/13/2023 4:51 AM CDT [facility] Immature Granulocytes Absolute 0.02 01/13/2023 4:51 AM CDT [facility] Blood BLOOD SPECIMEN / Unknown Venipuncture / Unknown 01/13/2023 4:32 AM CDT 01/13/2023 4:37 AM CDT Ck Small MD LAB - HEMATOLOG Y ORDERABLES Performing Organization Address City/State/[facility] Co de Phone Number [facility] [address] [place] [address], [facility] [phone] * XR CHEST 1VW PORTABLE (01/12/2023 3:07 PM CDT) Anatomical Region Laterality Modality Chest Radiographic Cynthia ging 01/12/2023 4:26 PM CDT Narrative 01/13/2023 12:51 PM CDT PROCEDURE: ??XR CHEST 1VW PORTABLE DATE/TIME OF EXAM: ??01/12/2023 3:07 PM CLINICAL INFORMATION: None relevant/not provided if blank. Indication: R09.02: Hypoxia J96.01: Acute respiratory failure with hypoxia (CMS/HCC) Additional History: COMPARISON: Chest x-ray 12/31/2022 FINDINGS/IMPRESSION: Lines, tubes, hardware: *Right upper extremity PICC terminating at the cavoatrial junction. *Tracheostomy tube terminating in the mid thoracic trachea. Streaky opacities in the right lateral lung favored to represent subsegmental atelectasis. There is an additional right retrocardiac opacity which may represent atelectasis versus airspace disease. There is no pleural effusion or pneumothorax. The cardiomediastinal silhouette is normal. The visible bony thorax is intact. Report dictated by Quan Nguyễn MD (presidential helicopter crew chief). IEron have personally reviewed and interpreted this examination/study. > Interpreting Provider: Eron Payton on 01/13/2023 12:51 PM Procedure Note Eron Payton MD - 01/13/2023 PROCEDURE: XR CHEST 1VW PORTABLE DATE/TIME OF EXAM: 01/12/2023 3:07 PM CLINICAL INFORMATION: None relevant/not provided if blank. Indication: R09.02: Hypoxia J96.01: Acute respiratory failure with hypoxia (CMS/HCC) Additional History: COMPARISON: Chest x-ray 12/31/2022 FINDINGS/IMPRESSION: Lines, tubes, hardware: *Right upper extremity PICC terminating at the cavoatrial junction. *Tracheostomy tube terminating in the mid thoracic trachea. Streaky opacities in the right lateral lung favored to represent subsegmental atelectasis. There is an additional right retrocardiacopacity which may represent atelectasis versus airspace disease. There is no pleural effusion or pneumothorax. The cardiomediastinal silhouette is normal. The visible bony thorax is intact. Report dictated by Quan Nguyễn MD (presidential helicopter crew chief). I, Eron Payton have personally reviewed and interpreted this examination/study. > Interpreting Provider: Eron Payton on 01/13/2023 12:51 PM Lisset Norris MD DIAGNOSTIC IMAGING O RDERABLES * (ABNORMAL) PHOSPHORUS BLOOD (01/12/2023 3:50 AM CDT) Phosphorus 2.5(L) 2.8 - 5.1 mg/dL 01/12/2023 4:41 AM CDT [facility] Blood BLOOD SPECIMEN / Unknown Venipuncture / Unknown 01/12/2023 3:50 AM CDT 01/12/2023 3:57 AM CDT Ck Small MD LAB - CHEMISTRY ORDERABLES [facility] [address] [place] [address], [facility] [phone] * MAGNESIUM BLOOD (01/12/2023 3:50 AM CDT) Magnesium 1.8 1.6 - 2.6 mg/dL 01/12/2023 4:41 AM CDT [facility] Blood BLOOD SPECIMEN / Unknown Venipuncture / Unknown 01/12/2023 3:50 AM CDT 01/12/2023 3:57 AM CDT Ck Small MD LAB - CHEMISTRY ORDERABLES [facility] [address] [place] [address], [facility] [phone] * (ABNORMAL) COMPREHENSIVE METABOLIC PANEL (01/12/2023 3:50 AM CDT) BUN 13 7 - 26 mg/dL 01/12/2023 4:41 AM [facility] Creatinine 0.37(L) 0.71 - 1.16 mg/dL 01/12/2023 4:41 AM [facility] Sodium 141 136 - 145 mmol/L 01/12/2023 4:41 AM [facility] Potassium 3.6 3.5 - 4.5 mmol/L 01/12/2023 4:41 AM [facility] Chloride 108(H) 98 - 107 mmol/L 01/12/2023 4:41 AM [facility] CO2 25 22 - 29 mmol/L 01/12/2023 4:41 AM [facility] Glucose 109 70 - 115 mg/dL 01/12/2023 4:41 AM [facility] Calcium 9.7 8.4 - 10.2 mg/dL 01/12/2023 4:41 AM [facility] Protein Total 7.2 6.0 - 8.3 g/dL 01/12/2023 4:41 AM [facility] Albumin 2.7(L) 3.4 - 5.0 g/dL 01/12/2023 4:41 AM [facility] Bilirubin Total 0.3 0.2 - 1.2 mg/dL 01/12/2023 4:41 AM [facility] Alkaline Phosphatase 87 40 - 150 U/L 01/12/2023 4:41 AM [facility] ALT 9 5 - 55 U/L 01/12/2023 4:41 AM [facility] AST 13 5 - 34 U/L 01/12/2023 4:41 AM [facility] Anion Gap 12 8 - 18 01/12/2023 4:41 AM [facility] BUN/Creatinine Ratio 35(H) 7 - 23 01/12/2023 4:41 AM [facility] Osmolality Calculated 293 270 - 300 mOsm/kg 01/12/2023 4:41 AM [facility] Albumin/Globulin Ratio 0.6(L) 1.1 - 2.3 01/12/2023 4:41 AM [facility] eGFR by CKD-EPI >90 >=90 mL/min/1.7 3 m2 01/12/2023 4:41 AM [facility] Blood BLOOD SPECIMEN / Unknown Venipuncture / Unknown 01/12/2023 3:50 AM CDT 01/12/2023 3:57 AM CDT Ck Small MD LAB - CHEMISTRY ORDERABLES Performing Organization Address City/[facility]/ZIP Co de Phone Number [address] [address], [facility] [phone] * CALCIUM IONIZED WHOLE BLOOD (01/12/2023 3:50 AM CDT) Calcium Ionized 1.27 mmol/L 01/12/2023 3:58 AM T [facility] pH 7.44 7.35 - 7.45 pH 01/12/2023 3:58 AM [facility] Ionized Calcium pH Adjusted 1.29 1.19 - 1.34 mmol/L 01/12/2023 3:58 AM T [facility] Blood BLOOD SPECIMEN / Unknown Venipuncture / Unknown 01/12/2023 3:50 AM CDT 01/12/2023 3:54 AM CDT Ck Small MD LAB - CHEMISTRY ORDERABLES Performing Organization Address City/[facility]/ZIP Co de Phone Number [address] [address], [facility] [phone] * (ABNORMAL) CBC W AUTO DIFFERENTIAL (01/12/2023 3:50 AM CDT) WBC 9.5 3.5 - 10.5 10? 3 /uL 01/12/2023 4:37 AM [facility] RBC 3.78(L) 4.30 - 5.70 10? 6 /uL 01/12/2023 4:37 AM [facility] Hemoglobin 11.8(L) 12.0 - 17.6 g/dL 01/12/2023 4:37 AM [facility] Hematocrit 36.7 35.2 - 51.7 % 01/12/2023 4:37 AM [facility] MCV 97.1 80.7 - 98.3 fL 01/12/2023 4:37 AM [facility] MCH 31.2 26.7 - 34.0 pg 01/12/2023 4:37 AM [facility] MCHC 32.2 30.8 - 35.9 g/dL 01/12/2023 4:37 AM [facility] RDW-SD 62.6(H) 36.0 - 50.0 fL 01/12/2023 4:37 AM [facility] RDW-CV 17.5(H) 11.2 - 14.8 % 01/12/2023 4:37 AM [facility] Platelet Count 220 150 - 400 10? 3 /uL 01/12/2023 4:37 AM [facility] MPV 11.4 9.4 - 12.9 fL 01/12/2023 4:37 AM [facility] nRBC Absolute 0.00 0 10? 3 /uL 01/12/2023 4:37 AM [facility] nRBC Auto 0.0 0 /100 WBC 01/12/2023 4:37 AM [facility] Neutrophils % 64.3 35.0 - 70.0 % 01/12/2023 4:37 AM [facility] Lymphocytes % 22.0 20.0 - 43.0 % 01/12/2023 4:37 AM [facility] Monocytes % 11.3 5.0 - 13.0 % 01/12/2023 4:37 AM [facility] Eosinophils % 1.9 0.0 - 6.0 % 01/12/2023 4:37 AM [facility] Basophil % 0.2 0.0 - 2.0 % 01/12/2023 4:37 AM [facility] Neutrophils Absolute 6.12 1.60 - 7.00 10? 3 /uL 01/12/2023 4:37 AM [facility] Lymphocyte Absolute 2.09 1.10 - 3.90 10? 3 /uL 01/12/2023 4:37 AM [facility] Monocytes Absolute 1.08(H) 0.26 - 1.07 10? 3 /uL 01/12/2023 4:37 AM [facility] Eosinophils Absolute 0.18 0.00 - 0.47 10? 3 /uL 01/12/2023 4:37 AM [facility] Basophils Absolute 0.02 0.00 - 0.08 10? 3 /uL 01/12/2023 4:37 AM [facility] Immature Granulocytes % 0.3 0.0 - 1.0 % 01/12/2023 4:37 AM [facility] Immature Granulocytes Absolute 0.03 01/12/2023 4:37 AM [facility] Blood BLOOD SPECIMEN / Unknown Venipuncture / Unknown 01/12/2023 3:50 AM CDT 01/12/2023 3:57 AM CDT Ck Small MD LAB - HEMATOLOG Y ORDERABLES Performing Organization Address City/State/[facility] Co de Phone Number [facility] [address] [place] [phone], [facility] [phone] * (ABNORMAL) BLOOD GASES ANA + COOX PANEL (01/11/2023 10:42 AM CDT) pH Venous 7.40 7.32 - 7.42 pH 01/11/2023 10:51 AM [facility] pO2 Venous 79(H) 35 - 40 mmHg 01/11/2023 10:51 AM [facility] pCO2 Venous 50 40 - 50 mmHg 01/11/2023 10:51 AM [facility] HCO3 Venous 31.0(H) 20 - 30 mmol/L 01/11/2023 10:51 AM [facility] Base Excess Venous 5.2(H) -2.0 - 2.0 mmol/L 01/11/2023 10:51 AM [facility] Oxyhemoglobin Venous 93.9 % 12/28 10:51 AM [facility] Deoxyhemoglobin (HHB) Venous % 2.8 % 01/11/2023 10:51 AM [facility] Methemoglobin <0.8 0.0 - 2.0 % 01/11/2023 10:51 AM [facility] Carboxyhemoglobin 2.7(H) 0.0 - 2.0 % 2022 10:51 AM [facility] O2 Content Venous 15.1 Interpret within clinical context ml/dL 01/11/2023 10:51 AM [facility] Hemoglobin by COOX 11.4(L) 12.0 - 17.6 g/dL 01/11/2023 10:51 AM [facility] O2 Saturation Venous 97 >=70 % 12/28 10:51 AM [facility] FI O2 Mixed Venous 28.0 % 2022 10:51 AM [facility] Blood BLOOD SPECIMEN / Unknown Venipuncture / Unknown 01/11/2023 10:42 AM T 01/11/2023 10:[address] [facility] - 01/11/2023 10:51 AM [facility] Carboxyhemoglobin Normal Concentration: Non-smokers: 0-2%; Smokers: 0-9%; Toxic: >20% Lisset Norris MD LAB - BLOOD GASES OR DERABLES [facility] [address] [place] [address], [facility] [phone] * (ABNORMAL) PHOSPHORUS BLOOD (01/11/2023 4:09 AM [facility]) [facility] Phosphorus 2.4(L) 2.8 - 5.1 mg/dL 01/11/2023 4:50 AM [facility] Blood BLOOD SPECIMEN / Unknown Venipuncture / Unknown 01/11/2023 4:09 AM CDT 01/11/2023 4:16 AM CDT Ck Small MD LAB - CHEMISTRY ORDERABLES [address] [address], [facility] [phone] * MAGNESIUM BLOOD (01/11/2023 4:09 AM CDT) Magnesium 1.7 1.6 - 2.6 mg/dL 01/11/2023 4:50 AM [facility] Blood BLOOD SPECIMEN / Unknown Venipuncture / Unknown 01/11/2023 4:09 AM CDT 01/11/2023 4:16 AM CDT Ck Small MD LAB - CHEMISTRY ORDERABLES Performing Organization Address City/[facility]/ZIP Co de Phone Number [address] [address], [facility] [phone] * (ABNORMAL) COMPREHENSIVE METABOLIC PANEL (01/11/2023 4:09 AM CDT) BUN 16 7 - 26 mg/dL 01/11/2023 4:50 AM [facility] Creatinine 0.40(L) 0.71 - 1.16 mg/dL 01/11/2023 4:50 AM [facility] Sodium 141 136 - 145 mmol/L 01/11/2023 4:50 AM [facility] Potassium 3.3(L) 3.5 - 4.5 mmol/L 01/11/2023 4:50 AM [facility] Chloride 105 98 - 107 mmol/L 01/11/2023 4:50 AM [facility] CO2 29 22 - 29 mmol/L 01/11/2023 4:50 AM [facility] Glucose 98 70 - 115 mg/dL 01/11/2023 4:50 AM [facility] Calcium 9.5 8.4 - 10.2 mg/dL 01/11/2023 4:50 AM [facility] Protein Total 6.5 6.0 - 8.3 g/dL 01/11/2023 4:50 AM [facility] Albumin 2.5(L) 3.4 - 5.0 g/dL 01/11/2023 4:50 AM [facility] Bilirubin Total 0.2 0.2 - 1.2 mg/dL 01/11/2023 4:50 AM [facility] Alkaline Phosphatase 79 40 - 150 U/L 01/11/2023 4:50 AM [facility] ALT 7 5 - 55 U/L 01/11/2023 4:50 AM [facility] AST 12 5 - 34 U/L 01/11/2023 4:50 AM [facility] Anion Gap 10 8 - 18 01/11/2023 4:50 AM [facility] BUN/Creatinine Ratio 40(H) 7 - 23 01/11/2023 4:50 AM [facility] Osmolality Calculated 293 270 - 300 mOsm/kg 01/11/2023 4:50 AM [facility] Albumin/Globulin Ratio 0.6(L) 1.1 - 2.3 01/11/2023 4:50 AM [facility] eGFR by CKD-EPI >90 >=90 mL/min/1.7 3 m2 01/11/2023 4:50 AM [facility] Blood BLOOD SPECIMEN / Unknown Venipuncture / Unknown 01/11/2023 4:09 AM T 01/11/2023 4:16 AM [facility] Ck Small MD LAB - CHEMISTRY ORDERABLES [facility] [address] [place] [address], [facility] [phone] * CALCIUM IONIZED WHOLE BLOOD (01/11/2023 4:09 AM [facility]) Calcium Ionized 1.31 mmol/L 01/11/2023 4:15 AM [facility] pH 7.40 7.35 - 7.45 pH 01/11/2023 4:15 AM [facility] Ionized Calcium pH Adjusted 1.31 1.19 - 1.34 mmol/L 01/11/2023 4:15 AM [facility] Blood BLOOD SPECIMEN / Unknown Venipuncture / Unknown 01/11/2023 4:09 AM CDT 01/11/2023 4:13 AM CDT Ck Small MD LAB - CHEMISTRY ORDERABLES Performing Organization Address City/State/[facility] Co de Phone Number [facility] [address] [place] [address], [facility] [phone] * (ABNORMAL) CBC W AUTO DIFFERENTIAL (01/11/2023 4:09 AM T) WBC 5.9 3.5 - 10.5 10? 3 /uL 01/11/2023 4:31 AM [facility] RBC 3.41(L) 4.30 - 5.70 10? 6 /uL 01/11/2023 4:31 AM [facility] Hemoglobin 10.6(L) 12.0 - 17.6 g/dL 01/11/2023 4:31 AM [facility] Hematocrit 33.2(L) 35.2 - 51.7 % 01/11/2023 4:31 AM [facility] MCV 97.4 80.7 - 98.3 fL 01/11/2023 4:31 AM [facility] MCH 31.1 26.7 - 34.0 pg 01/11/2023 4:31 AM [facility] MCHC 31.9 30.8 - 35.9 g/dL 01/11/2023 4:31 AM [facility] RDW-SD 62.9(H) 36.0 - 50.0 fL 01/11/2023 4:31 AM [facility] RDW-CV 17.6(H) 11.2 - 14.8 % 01/11/2023 4:31 AM [facility] Platelet Count 197 150 - 400 10? 3 /uL 01/11/2023 4:31 AM [facility] MPV 11.4 9.4 - 12.9 fL 01/11/2023 4:31 AM [facility] nRBC Absolute 0.00 0 10? 3 /uL 01/11/2023 4:31 AM [facility] nRBC Auto 0.0 0 /100 WBC 01/11/2023 4:31 AM [facility] Neutrophils % 50.6 35.0 - 70.0 % 01/11/2023 4:31 AM [facility] Lymphocytes % 34.0 20.0 - 43.0 % 01/11/2023 4:31 AM [facility] Monocytes % 11.0 5.0 - 13.0 % 01/11/2023 4:31 AM [facility] Eosinophils % 3.7 0.0 - 6.0 % 01/11/2023 4:31 AM [facility] Basophil % 0.5 0.0 - 2.0 % 01/11/2023 4:31 AM [facility] Neutrophils Absolute 2.98 1.60 - 7.00 10? 3 /uL 01/11/2023 4:31 AM [facility] Lymphocyte Absolute 2.00 1.10 - 3.90 10? 3 /uL 01/11/2023 4:31 AM [facility] Monocytes Absolute 0.65 0.26 - 1.07 10? 3 /uL 01/11/2023 4:31 AM [facility] Eosinophils Absolute 0.22 0.00 - 0.47 10? 3 /uL 01/11/2023 4:31 AM [facility] Basophils Absolute 0.03 0.00 - 0.08 10? 3 /uL 01/11/2023 4:31 AM [facility] Immature Granulocytes % 0.2 0.0 - 1.0 % 01/11/2023 4:31 AM [facility] Immature Granulocytes Absolute 0.01 01/11/2023 4:31 AM [facility] Blood BLOOD SPECIMEN / Unknown Venipuncture / Unknown 01/11/2023 4:09 AM CDT 01/11/2023 4:16 AM [facility] Ck Small MD LAB - HEMATOLOG Y ORDERABLES Performing Organization Address City/[facility]/ZIP Co de Phone Number [address] [address], [facility] [phone] * (ABNORMAL) PHOSPHORUS BLOOD (01/10/2023 3:48 AM CDT) Phosphorus 2.7(L) 2.8 - 5.1 mg/dL 01/10/2023 4:22 AM CDT [facility] Blood BLOOD SPECIMEN / Unknown Venipuncture / Unknown 01/10/2023 3:48 AM CDT 01/10/2023 3:55 AM CDT Ck Small MD LAB - CHEMISTRY ORDERABLES Performing Organization Address [facility]/ZIP Co de Phone Number [address] [address], [facility] [phone] * MAGNESIUM BLOOD (01/10/2023 3:48 AM CDT) Magnesium 1.7 1.6 - 2.6 mg/dL 01/10/2023 4:22 AM CDT [facility] Blood BLOOD SPECIMEN / Unknown Venipuncture / Unknown 01/10/2023 3:48 AM CDT 01/10/2023 3:55 AM CDT Ck Small MD LAB - CHEMISTRY ORDERABLES Performing Organization Address City/[facility]/ZIP Co de Phone Number [address] [address], [place] [phone] * (ABNORMAL) COMPREHENSIVE METABOLIC PANEL (01/10/2023 3:48 AM CDT) BUN 18 7 - 26 mg/dL 01/10/2023 4:22 AM CDT [facility] Creatinine 0.41(L) 0.71 - 1.16 mg/dL 01/10/2023 4:22 AM CDT [facility] Sodium 141 136 - 145 mmol/L 01/10/2023 4:22 AM CDT [facility] Potassium 3.6 3.5 - 4.5 mmol/L 01/10/2023 4:[address] [facility] Chloride 104 98 - 107 mmol/L 01/10/2023 4:22 AM [facility] CO2 31(H) 22 - 29 mmol/L 01/10/2023 4:22 AM [facility] Glucose 92 70 - 115 mg/dL 01/10/2023 4:22 AM [facility] Calcium 9.4 8.4 - 10.2 mg/dL 01/10/2023 4:22 AM [facility] Protein Total 6.4 6.0 - 8.3 g/dL 01/10/2023 4:22 AM [facility] Albumin 2.5(L) 3.4 - 5.0 g/dL 01/10/2023 4:22 AM [facility] Bilirubin Total 0.3 0.2 - 1.2 mg/dL 01/10/2023 4:22 AM [facility] Alkaline Phosphatase 75 40 - 150 U/L 01/10/2023 4:22 AM [facility] ALT 8 5 - 55 U/L 01/10/2023 4:22 AM [facility] AST 11 5 - 34 U/L 01/10/2023 4:22 AM [facility] Anion Gap 10 8 - 18 01/10/2023 4:22 AM [facility] BUN/Creatinine Ratio 44(H) 7 - 23 01/10/2023 4:22 AM [facility] Osmolality Calculated 294 270 - 300 mOsm/kg 01/10/2023 4:22 AM [facility] Albumin/Globulin Ratio 0.6(L) 1.1 - 2.3 01/10/2023 4:22 AM [facility] eGFR by CKD-EPI >90 >=90 mL/min/1.7 3 m2 01/10/2023 4:22 AM [facility] Blood BLOOD SPECIMEN / Unknown Venipuncture / Unknown 01/10/2023 3:48 AM CDT 01/10/2023 3:55 AM T Ck Small MD LAB - CHEMISTRY ORDERABLES Performing Organization Address [facility]/ZIP Co de Phone Number [address] [address], [facility] [phone] * (ABNORMAL) CALCIUM IONIZED WHOLE BLOOD (01/10/2023 3:48 AM CDT) [facility] Calcium Ionized 1.30 mmol/L 01/10/2023 3:56 AM CDT [facility] pH 7.46(H) 7.35 - 7.45 pH 01/10/2023 3:56 AM T [facility] Ionized Calcium pH Adjusted 1.33 1.19 - 1.34 mmol/L 01/10/2023 3:56 AM T [facility] Blood BLOOD SPECIMEN / Unknown Venipuncture / Unknown 01/10/2023 3:48 AM CDT 01/10/2023 3:51 AM CDT Ck Small MD LAB - CHEMISTRY ORDERABLES Performing Organization Address [facility]/ZIP Co de Phone Number [address] [address], [facility] [phone] * (ABNORMAL) CBC W AUTO DIFFERENTIAL (01/10/2023 3:48 AM CDT) [facility] WBC 5.8 3.5 - 10.5 10? 3 /uL 01/10/2023 4:08 AM [facility] RBC 3.08(L) 4.30 - 5.70 10? 6 /uL 01/10/2023 4:08 AM [facility] Hemoglobin 9.6(L) 12.0 - 17.6 g/dL 01/10/2023 4:08 AM [facility] Hematocrit 29.6(L) 35.2 - 51.7 % 01/10/2023 4:08 AM [facility] MCV 96.1 80.7 - 98.3 fL 01/10/2023 4:08 AM [facility] MCH 31.2 26.7 - 34.0 pg 01/10/2023 4:08 AM [facility] MCHC 32.4 30.8 - 35.9 g/dL 01/10/2023 4:08 AM [facility] RDW-SD 64.1(H) 36.0 - 50.0 fL 01/10/2023 4:08 AM [facility] RDW-CV 18.3(H) 11.2 - 14.8 % 01/10/2023 4:08 AM [facility] Platelet Count 194 150 - 400 10? 3 /uL 01/10/2023 4:08 AM [facility] MPV 11.6 9.4 - 12.9 fL 01/10/2023 4:08 AM [facility] nRBC Absolute 0.00 0 10? 3 /uL 01/10/2023 4:08 AM [facility] nRBC Auto 0.0 0 /100 WBC 01/10/2023 4:08 AM [facility] Neutrophils % 47.3 35.0 - 70.0 % 01/10/2023 4:08 AM [facility] Lymphocytes % 37.7 20.0 - 43.0 % 01/10/2023 4:08 AM [facility] Monocytes % 11.3 5.0 - 13.0 % 01/10/2023 4:08 AM [facility] Eosinophils % 3.1 0.0 - 6.0 % 01/10/2023 4:08 AM [facility] Basophil % 0.3 0.0 - 2.0 % 01/10/2023 4:08 AM [facility] Neutrophils Absolute 2.72 1.60 - 7.00 10? 3 /uL 01/10/2023 4:08 AM [facility] Lymphocyte Absolute 2.17 1.10 - 3.90 10? 3 /uL 01/10/2023 4:08 AM [facility] Monocytes Absolute 0.65 0.26 - 1.07 10? 3 /uL 01/10/2023 4:08 AM [facility] Eosinophils Absolute 0.18 0.00 - 0.47 10? 3 /uL 01/10/2023 4:08 AM [facility] Basophils Absolute 0.02 0.00 - 0.08 10? 3 /uL 01/10/2023 4:08 AM [facility] Immature Granulocytes % 0.3 0.0 - 1.0 % 01/10/2023 4:08 AM CDT [facility] Immature Granulocytes Absolute 0.02 01/10/2023 4:08 AM CDT [facility] Blood BLOOD SPECIMEN / Unknown Venipuncture / Unknown 01/10/2023 3:48 AM CDT 01/10/2023 3:57 AM CDT Ck Small MD LAB - HEMATOLOG Y ORDERABLES [address] [address], [place] [phone] * VALPROIC ACID LEVEL (01/10/2023 3:48 AM CDT) Valproic Acid Total 57 50 - 100 ug/mL 01/10/2023 4:45 AM CDT [facility] Blood BLOOD SPECIMEN / Unknown Venipuncture / Unknown 01/10/2023 3:48 AM CDT 01/10/2023 3:51 AM CDT Ck Small MD LAB - CHEMISTRY ORDERABLES Performing Organization Address [facility]/ZIP Co de Phone Number [address] [address], [place] [phone] * (ABNORMAL) PHOSPHORUS BLOOD (01/09/2023 4:15 AM CDT) Phosphorus 2.3(L) 2.8 - 5.1 mg/dL 01/09/2023 5:45 AM CDT [facility] Blood BLOOD SPECIMEN / Unknown Venipuncture / Unknown 01/09/2023 4:15 AM CDT 01/09/2023 4:31 AM CDT Ck Small MD LAB - CHEMISTRY ORDERABLES Performing Organization Address City/[facility]/ZIP Co de Phone Number [address] [address], [place] [phone] * MAGNESIUM BLOOD (01/09/2023 4:15 AM CDT) Magnesium 1.7 1.6 - 2.6 mg/dL 01/09/2023 5:45 AM [facility] Blood BLOOD SPECIMEN / Unknown Venipuncture / Unknown 01/09/2023 4:15 AM CDT 01/09/2023 4:31 AM CDT Ck Small MD LAB - CHEMISTRY ORDERABLES [facility] [address] [place] [address], [facility] [phone] * (ABNORMAL) COMPREHENSIVE METABOLIC PANEL (01/09/2023 4:15 AM CDT) BUN 20 7 - 26 mg/dL 01/09/2023 5:45 AM [facility] Creatinine 0.38(L) 0.71 - 1.16 mg/dL 01/09/2023 5:45 AM [facility] Sodium 140 136 - 145 mmol/L 01/09/2023 5:45 AM [facility] Potassium 3.6 3.5 - 4.5 mmol/L 01/09/2023 5:45 AM [facility] Chloride 104 98 - 107 mmol/L 01/09/2023 5:45 AM [facility] CO2 30(H) 22 - 29 mmol/L 01/09/2023 5:45 AM [facility] Glucose 110 70 - 115 mg/dL 01/09/2023 5:45 AM [facility] Calcium 9.5 8.4 - 10.2 mg/dL 01/09/2023 5:45 AM [facility] Protein Total 6.8 6.0 - 8.3 g/dL 01/09/2023 5:45 AM [facility] Albumin 2.6(L) 3.4 - 5.0 g/dL 01/09/2023 5:45 AM [facility] Bilirubin Total 0.2 0.2 - 1.2 mg/dL 01/09/2023 5:45 AM [facility] Alkaline Phosphatase 83 40 - 150 U/L 01/09/2023 5:45 AM [facility] ALT 10 5 - 55 U/L 01/09/2023 5:45 AM [facility] AST 14 5 - 34 U/L 01/09/2023 5:45 AM [facility] Anion Gap 10 8 - 18 01/09/2023 5:45 AM [facility] BUN/Creatinine Ratio >50(H) 7 - 23 01/09/2023 5:45 AM [facility] Osmolality Calculated 293 270 - 300 mOsm/kg 01/09/2023 5:45 AM [facility] Albumin/Globulin Ratio 0.6(L) 1.1 - 2.3 01/09/2023 5:45 AM [facility] eGFR by CKD-EPI >90 >=90 mL/min/1.7 3 m2 01/09/2023 5:45 AM [facility] Blood BLOOD SPECIMEN / Unknown Venipuncture / Unknown 01/09/2023 4:15 AM CDT 01/09/2023 4:31 AM CDT Ck Small MD LAB - CHEMISTRY ORDERABLES Performing Organization Address City/State/[facility] Co de Phone Number [facility] [address] [place] [phone], [facility] [phone] * (ABNORMAL) CALCIUM IONIZED WHOLE BLOOD (01/09/2023 4:15 AM CDT) Calcium Ionized 1.30 mmol/L 01/09/2023 4:33 AM [facility] pH 7.49(H) 7.35 - 7.45 pH 01/09/2023 4:33 AM [facility] Ionized Calcium pH Adjusted 1.35(H) 1.19 - 1.34 mmol/L 01/09/2023 4:33 AM [facility] Blood BLOOD SPECIMEN / Unknown Venipuncture / Unknown 01/09/2023 4:15 AM CDT 01/09/2023 4:18 AM CDT Ck Small MD LAB - CHEMISTRY ORDERABLES [facility] [address] [place] [id number], [facility] [phone] * (ABNORMAL) CBC W AUTO DIFFERENTIAL (01/09/2023 4:15 AM CDT) WBC 6.3 3.5 - 10.5 10? 3 /uL 01/09/2023 4:40 AM [facility] RBC 3.26(L) 4.30 - 5.70 10? 6 /uL 01/09/2023 4:40 AM [facility] Hemoglobin 10.1(L) 12.0 - 17.6 g/dL 01/09/2023 4:40 AM [facility] Hematocrit 31.4(L) 35.2 - 51.7 % 01/09/2023 4:40 AM [facility] MCV 96.3 80.7 - 98.3 fL 01/09/2023 4:40 AM [facility] MCH 31.0 26.7 - 34.0 pg 01/09/2023 4:40 AM [facility] MCHC 32.2 30.8 - 35.9 g/dL 01/09/2023 4:40 AM [facility] RDW-SD 65.3(H) 36.0 - 50.0 fL 01/09/2023 4:40 AM [facility] RDW-CV 18.5(H) 11.2 - 14.8 % 01/09/2023 4:40 AM [facility] Platelet Count 213 150 - 400 10? 3 /uL 01/09/2023 4:40 AM [facility] MPV 12.1 9.4 - 12.9 fL 01/09/2023 4:40 AM [facility] nRBC Absolute 0.00 0 10? 3 /uL 01/09/2023 4:40 AM [facility] nRBC Auto 0.0 0 /100 WBC 01/09/2023 4:40 AM [facility] Neutrophils % 49.2 35.0 - 70.0 % 01/09/2023 4:40 AM CDT [facility] Lymphocytes % 31.6 20.0 - 43.0 % 01/09/2023 4:40 AM [facility] Monocytes % 15.7(H) 5.0 - 13.0 % 01/09/2023 4:40 AM [facility] Eosinophils % 2.7 0.0 - 6.0 % 01/09/2023 4:40 AM [facility] Basophil % 0.3 0.0 - 2.0 % 01/09/2023 4:40 AM [facility] Neutrophils Absolute 3.10 1.60 - 7.00 10? 3 /uL 01/09/2023 4:40 AM [facility] Lymphocyte Absolute 1.99 1.10 - 3.90 10? 3 /uL 01/09/2023 4:40 AM [facility] Monocytes Absolute 0.99 0.26 - 1.07 10? 3 /uL 01/09/2023 4:40 AM [facility] Eosinophils Absolute 0.17 0.00 - 0.47 10? 3 /uL 01/09/2023 4:40 AM [facility] Basophils Absolute 0.02 0.00 - 0.08 10? 3 /uL 01/09/2023 4:40 AM [facility] Immature Granulocytes % 0.5 0.0 - 1.0 % 01/09/2023 4:40 AM [facility] Immature Granulocytes Absolute 0.03 01/09/2023 4:40 AM [facility] Blood BLOOD SPECIMEN / Unknown Venipuncture / Unknown 01/09/2023 4:15 AM CDT 01/09/2023 4:32 AM CDT Ck Small MD LAB - HEMATOLOG Y ORDERABLES Performing Organization Address City/State/[facility] Co de Phone Number [address] [address], [facility] [phone] * (ABNORMAL) PHOSPHORUS BLOOD (01/08/2023 3:50 AM CDT) Phosphorus 2.5(L) 2.8 - 5.1 mg/dL 01/08/2023 4:27 AM CDT [facility] Blood BLOOD SPECIMEN / Unknown Venipuncture / Unknown 01/08/2023 3:50 AM CDT 01/08/2023 3:58 AM CDT Ck Small MD LAB - CHEMISTRY ORDERABLES Performing Organization Address City/[facility]/ZIP Co de Phone Number [phone] [address] [address], [facility] [phone] * MAGNESIUM BLOOD (01/08/2023 3:50 AM CDT) Magnesium 1.7 1.6 - 2.6 mg/dL 01/08/2023 4:27 AM T [facility] Blood BLOOD SPECIMEN / Unknown Venipuncture / Unknown 01/08/2023 3:50 AM CDT 01/08/2023 3:58 AM CDT Ck Small MD LAB - CHEMISTRY ORDERABLES [address] [address], [facility] [phone] * (ABNORMAL) COMPREHENSIVE METABOLIC PANEL (01/08/2023 3:50 AM CDT) BUN 19 7 - 26 mg/dL 01/08/2023 4:27 [address] [facility] Creatinine 0.42(L) 0.71 - 1.16 mg/dL 01/08/2023 4:27 AM [facility] Sodium 141 136 - 145 mmol/L 01/08/2023 4:27 AM [facility] Potassium 3.4(L) 3.5 - 4.5 mmol/L 01/08/2023 4:27 AM [facility] Chloride 105 98 - 107 mmol/L 01/08/2023 4:[address] [facility] CO2 28 22 - 29 mmol/L 01/08/2023 4:27 AM [facility] Glucose 109 70 - 115 mg/dL 01/08/2023 4:27 AM [facility] Calcium 9.3 8.4 - 10.2 mg/dL 01/08/2023 4:27 AM [facility] Protein Total 6.8 6.0 - 8.3 g/dL 01/08/2023 4:27 AM [facility] Albumin 2.6(L) 3.4 - 5.0 g/dL 01/08/2023 4:27 AM [facility] Bilirubin Total 0.2 0.2 - 1.2 mg/dL 01/08/2023 4:27 AM [facility] Alkaline Phosphatase 82 40 - 150 U/L 01/08/2023 4:27 AM [facility] ALT 9 5 - 55 U/L 01/08/2023 4:27 AM [facility] AST 15 5 - 34 U/L 01/08/2023 4:27 AM [facility] Anion Gap 11 8 - 18 01/08/2023 4:27 AM [facility] BUN/Creatinine Ratio 45(H) 7 - 23 01/08/2023 4:27 AM [facility] Osmolality Calculated 295 270 - 300 mOsm/kg 01/08/2023 4:27 AM [facility] Albumin/Globulin Ratio 0.6(L) 1.1 - 2.3 01/08/2023 4:27 AM [facility] eGFR by CKD-EPI >90 >=90 mL/min/1.7 3 m2 01/08/2023 4:27 AM [facility] Blood BLOOD SPECIMEN / Unknown Venipuncture / Unknown 01/08/2023 3:50 AM CDT 01/08/2023 3:58 AM CDT Ck Small MD LAB - CHEMISTRY ORDERABLES [address] [address], [facility] [phone] * (ABNORMAL) CALCIUM IONIZED WHOLE BLOOD (01/08/2023 3:50 AM CDT) Calcium Ionized 1.27 mmol/L 01/08/2023 3:52 AM [facility] pH 7.52(H) 7.35 - 7.45 pH 01/08/2023 3:52 AM [facility] Ionized Calcium pH Adjusted 1.33 1.19 - 1.34 mmol/L 01/08/2023 3:52 AM [facility] Blood BLOOD SPECIMEN / Unknown 01/08/2023 3:50 AM CDT 01/08/2023 3:50 AM CDT Ck Small MD LAB - CHEMISTRY ORDERABLES [address] [address], [facility] [phone] * (ABNORMAL) CBC W AUTO DIFFERENTIAL (01/08/2023 3:50 AM CDT) WBC 5.7 3.5 - 10.5 10? 3 /uL 01/08/2023 4:13 AM [facility] RBC 3.27(L) 4.30 - 5.70 10? 6 /uL 01/08/2023 4:13 AM [facility] Hemoglobin 10.2(L) 12.0 - 17.6 g/dL 01/08/2023 4:13 AM [facility] Hematocrit 31.5(L) 35.2 - 51.7 % 01/08/2023 4:13 AM [facility] MCV 96.3 80.7 - 98.3 fL 01/08/2023 4:13 AM [facility] MCH 31.2 26.7 - 34.0 pg 01/08/2023 4:13 AM [facility] MCHC 32.4 30.8 - 35.9 g/dL 01/08/2023 4:13 AM [facility] RDW-SD 66.3(H) 36.0 - 50.0 fL 01/08/2023 4:13 AM [facility] RDW-CV 18.7(H) 11.2 - 14.8 % 01/08/2023 4:13 AM [facility] Platelet Count 210 150 - 400 10? 3 /uL 01/08/2023 4:13 AM [facility] MPV 12.9 9.4 - 12.9 fL 01/08/2023 4:13 AM [facility] nRBC Absolute 0.00 0 10? 3 /uL 01/08/2023 4:13 AM [facility] nRBC Auto 0.0 0 /100 WBC 01/08/2023 4:13 AM [facility] Neutrophils % 45.4 35.0 - 70.0 % 01/08/2023 4:13 AM [facility] Lymphocytes % 37.5 20.0 - 43.0 % 01/08/2023 4:13 AM [facility] Monocytes % 13.4(H) 5.0 - 13.0 % 01/08/2023 4:13 AM [facility] Eosinophils % 3.1 0.0 - 6.0 % 01/08/2023 4:13 AM [facility] Basophil % 0.3 0.0 - 2.0 % 01/08/2023 4:13 AM [facility] Neutrophils Absolute 2.60 1.60 - 7.00 10? 3 /uL 01/08/2023 4:13 AM [facility] Lymphocyte Absolute 2.15 1.10 - 3.90 10? 3 /uL 01/08/2023 4:13 AM [facility] Monocytes Absolute 0.77 0.26 - 1.07 10? 3 /uL 01/08/2023 4:13 AM [facility] Eosinophils Absolute 0.18 0.00 - 0.47 10? 3 /uL 01/08/2023 4:13 AM [facility] Basophils Absolute 0.02 0.00 - 0.08 10? 3 /uL 01/08/2023 4:13 AM [facility] Immature Granulocytes % 0.3 0.0 - 1.0 % 01/08/2023 4:13 AM [facility] Immature Granulocytes Absolute 0.02 01/08/2023 4:13 AM [facility] Blood BLOOD SPECIMEN / Unknown Venipuncture / Unknown 01/08/2023 3:50 AM CDT 01/08/2023 3:59 AM CDT Ck Small MD LAB - HEMATOLOG Y ORDERABLES [facility] [address] [place] [address], [facility] [phone] * (ABNORMAL) BLOOD GASES ANA + COOX PANEL (01/07/2023 12:24 PM CDT) pH Venous 7.43(H) 7.32 - 7.42 pH 01/07/2023 12:35 PM [facility] pO2 Venous 51(H) 35 - 40 mmHg 01/07/2023 12:35 PM [facility] pCO2 Venous 47 40 - 50 mmHg 01/07/2023 12:35 PM [facility] HCO3 Venous 31.2(H) 20 - 30 mmol/L 01/07/2023 12:35 PM [facility] Base Excess Venous 6.0(H) -2.0 - 2.0 mmol/L 01/07/2023 12:35 PM [facility] Oxyhemoglobin Venous 75.4 % 12/28 12:35 PM [facility] Deoxyhemoglobin (HHB) Venous % 22.3 % 01/07/2023 12:35 PM [facility] Methemoglobin <0.8 0.0 - 2.0 % 01/07/2023 12:35 PM [facility] Carboxyhemoglobin 2.3(H) 0.0 - 2.0 % 2022 12:35 PM [facility] O2 Content Venous 11.7 Interpret within clinical context ml/dL 01/07/2023 12:35 PM [facility] Hemoglobin by COOX 11.0(L) 12.0 - 17.6 g/dL 01/07/2023 12:35 PM [facility] O2 Saturation Venous 77 >=70 % 12/28 12:35 PM [facility] FI O2 Mixed Venous 25.0 % 2022 12:35 PM CDT [facility] Blood BLOOD SPECIMEN / Unknown Venipuncture / Unknown 01/07/2023 12:24 PM CDT 01/07/2023 12:33 PM CDT Narrative [facility] - 01/07/2023 12:35 PM CDT Carboxyhemoglobin Normal Concentration: Non-smokers: 0-2%; Smokers: 0-9%; Toxic: >20% Ck Small MD LAB - BLOOD GAS ES ORDERABLES Performing Organization Address [facility]/ZIP Co de Phone Number [address] [address], [facility] [phone] * (ABNORMAL) PHOSPHORUS BLOOD (01/07/2023 4:25 AM CDT) Phosphorus 2.5(L) 2.8 - 5.1 mg/dL 01/07/2023 4:54 AM CDT [facility] Blood BLOOD SPECIMEN / Unknown Venipuncture / Unknown 01/07/2023 4:25 AM CDT 01/07/2023 4:29 AM CDT Ck Small MD LAB - CHEMISTRY ORDERABLES Performing Organization Address [facility] Co de Phone Number [address] [address], [place] [phone] * MAGNESIUM BLOOD (01/07/2023 4:25 AM CDT) Magnesium 1.6 1.6 - 2.6 mg/dL 01/07/2023 4:54 AM CDT [facility] Blood BLOOD SPECIMEN / Unknown Venipuncture / Unknown 01/07/2023 4:25 AM CDT 01/07/2023 4:29 AM CDT Ck Small MD LAB - CHEMISTRY ORDERABLES Performing Organization Address [facility] Co de Phone Number [address] [address], [place] [phone] * (ABNORMAL) COMPREHENSIVE METABOLIC PANEL (01/07/2023 4:25 AM CDT) BUN 19 7 - 26 mg/dL 01/07/2023 4:54 AM [facility] Creatinine 0.43(L) 0.71 - 1.16 mg/dL 01/07/2023 4:54 AM [facility] Sodium 140 136 - 145 mmol/L 01/07/2023 4:54 AM [facility] Potassium 3.5 3.5 - 4.5 mmol/L 01/07/2023 4:54 AM [facility] Chloride 105 98 - 107 mmol/L 01/07/2023 4:54 AM [facility] CO2 28 22 - 29 mmol/L 01/07/2023 4:54 AM [facility] Glucose 109 70 - 115 mg/dL 01/07/2023 4:54 AM [facility] Calcium 9.2 8.4 - 10.2 mg/dL 01/07/2023 4:54 AM [facility] Protein Total 6.7 6.0 - 8.3 g/dL 01/07/2023 4:54 AM [facility] Albumin 2.6(L) 3.4 - 5.0 g/dL 01/07/2023 4:54 AM [facility] Bilirubin Total 0.2 0.2 - 1.2 mg/dL 01/07/2023 4:54 AM [facility] Alkaline Phosphatase 86 40 - 150 U/L 01/07/2023 4:54 AM [facility] ALT 11 5 - 55 U/L 01/07/2023 4:54 AM [facility] AST 14 5 - 34 U/L 01/07/2023 4:54 AM [facility] Anion Gap 11 8 - 18 01/07/2023 4:54 AM [facility] BUN/Creatinine Ratio 44(H) 7 - 23 01/07/2023 4:54 AM [facility] Osmolality Calculated 293 270 - 300 mOsm/kg 01/07/2023 4:54 AM [facility] Albumin/Globulin Ratio 0.6(L) 1.1 - 2.3 01/07/2023 4:54 AM [facility] eGFR by CKD-EPI >90 >=90 mL/min/1.7 3 m2 01/07/2023 4:54 AM T [facility] Blood BLOOD SPECIMEN / Unknown Venipuncture / Unknown 01/07/2023 4:25 AM CDT 01/07/2023 4:29 AM CDT Ck Small MD LAB - CHEMISTRY ORDERABLES Performing Organization Address City/[facility]/ZIP Co de Phone Number [address] [address], [facility] [phone] * (ABNORMAL) CALCIUM IONIZED WHOLE BLOOD (01/07/2023 4:25 AM CDT) Pathologist [facility] Calcium Ionized 1.21 mmol/L 01/07/2023 4:31 AM T [facility] pH 7.50(H) 7.35 - 7.45 pH 01/07/2023 4:31 AM T [facility] Ionized Calcium pH Adjusted 1.26 1.19 - 1.34 mmol/L 01/07/2023 4:31 AM T [facility] Blood BLOOD SPECIMEN / Unknown Venipuncture / Unknown 01/07/2023 4:25 AM CDT 01/07/2023 4:29 AM CDT Ck Small MD LAB - CHEMISTRY ORDERABLES [address] [address], [facility] [phone] * (ABNORMAL) CBC W AUTO DIFFERENTIAL (01/07/2023 4:25 AM CDT) WBC 6.7 3.5 - 10.5 10? 3 /uL 01/07/2023 5:03 AM T [facility] RBC 3.17(L) 4.30 - 5.70 10? 6 /uL 01/07/2023 5:03 AM T [facility] Hemoglobin 10.0(L) 12.0 - 17.6 g/dL 01/07/2023 5:03 AM [facility] Hematocrit 30.1(L) 35.2 - 51.7 % 01/07/2023 5:03 AM [facility] MCV 95.0 80.7 - 98.3 fL 01/07/2023 5:03 AM [facility] MCH 31.5 26.7 - 34.0 pg 01/07/2023 5:03 AM [facility] MCHC 33.2 30.8 - 35.9 g/dL 01/07/2023 5:03 AM [facility] RDW-SD 63.9(H) 36.0 - 50.0 fL 01/07/2023 5:03 AM [facility] RDW-CV 18.6(H) 11.2 - 14.8 % 01/07/2023 5:03 AM [facility] Platelet Count 210 150 - 400 10? 3 /uL 01/07/2023 5:03 AM [facility] MPV 12.8 9.4 - 12.9 fL 01/07/2023 5:03 AM [facility] nRBC Absolute 0.00 0 10? 3 /uL 01/07/2023 5:03 AM [facility] nRBC Auto 0.0 0 /100 WBC 01/07/2023 5:03 AM [facility] Neutrophils % 47.6 35.0 - 70.0 % 01/07/2023 5:03 AM [facility] Lymphocytes % 36.2 20.0 - 43.0 % 01/07/2023 5:03 AM [facility] Monocytes % 11.3 5.0 - 13.0 % 01/07/2023 5:03 AM [facility] Eosinophils % 3.6 0.0 - 6.0 % 01/07/2023 5:03 AM [facility] Basophil % 0.5 0.0 - 2.0 % 01/07/2023 5:03 AM [facility] Neutrophils Absolute 3.17 1.60 - 7.00 10? 3 /uL 01/07/2023 5:03 AM [facility] Lymphocyte Absolute 2.41 1.10 - 3.90 10? 3 /uL 01/07/2023 5:03 AM CDT [facility] Monocytes Absolute 0.75 0.26 - 1.07 10? 3 /uL 01/07/2023 5:03 AM CDT [facility] Eosinophils Absolute 0.24 0.00 - 0.47 10? 3 /uL 01/07/2023 5:03 AM CDT [facility] Basophils Absolute 0.03 0.00 - 0.08 10? 3 /uL 01/07/2023 5:03 AM CDT [facility] Immature Granulocytes % 0.8 0.0 - 1.0 % 01/07/2023 5:03 AM CDT [facility] Immature Granulocytes Absolute 0.05 01/07/2023 5:03 AM CDT [facility] Blood BLOOD SPECIMEN / Unknown Venipuncture / Unknown 01/07/2023 4:25 AM CDT 01/07/2023 4:29 AM CDT Ck Small MD LAB - HEMATOLOG Y ORDERABLES [facility] [address] [place] [address], [facility] [phone] * (ABNORMAL) PHOSPHORUS BLOOD (01/06/2023 4:11 AM CDT) Phosphorus 2.2(L) 2.8 - 5.1 mg/dL 01/06/2023 4:50 AM CDT [facility] Blood BLOOD SPECIMEN / Unknown Venipuncture / Unknown 01/06/2023 4:11 AM CDT 01/06/2023 4:18 AM CDT Ck Small MD LAB - CHEMISTRY ORDERABLES [address] [address], [facility] [phone] * MAGNESIUM BLOOD (01/06/2023 4:11 AM CDT) Magnesium 1.7 1.6 - 2.6 mg/dL 01/06/2023 4:50 AM CDT [facility] Blood BLOOD SPECIMEN / Unknown Venipuncture / Unknown 01/06/2023 4:11 AM CDT 01/06/2023 4:18 AM T Ck Small MD LAB - CHEMISTRY ORDERABLES [facility] [address] [place] [address], [facility] [phone] * (ABNORMAL) COMPREHENSIVE METABOLIC PANEL (01/06/2023 4:11 AM CDT) BUN 15 7 - 26 mg/dL 01/06/2023 4:50 AM [facility] Creatinine 0.44(L) 0.71 - 1.16 mg/dL 01/06/2023 4:50 AM [facility] Sodium 139 136 - 145 mmol/L 01/06/2023 4:50 AM [facility] Potassium 3.5 3.5 - 4.5 mmol/L 01/06/2023 4:50 AM [facility] Chloride 105 98 - 107 mmol/L 01/06/2023 4:50 AM [facility] CO2 26 22 - 29 mmol/L 01/06/2023 4:50 AM [facility] Glucose 110 70 - 115 mg/dL 01/06/2023 4:50 AM [facility] Calcium 9.3 8.4 - 10.2 mg/dL 01/06/2023 4:50 AM [facility] Protein Total 6.9 6.0 - 8.3 g/dL 01/06/2023 4:50 AM [facility] Albumin 2.6(L) 3.4 - 5.0 g/dL 01/06/2023 4:50 AM [facility] Bilirubin Total 0.2 0.2 - 1.2 mg/dL 01/06/2023 4:50 AM [facility] Alkaline Phosphatase 94 40 - 150 U/L 01/06/2023 4:50 AM [facility] ALT 10 5 - 55 U/L 01/06/2023 4:50 AM [facility] AST 14 5 - 34 U/L 01/06/2023 4:50 AM [facility] Anion Gap 12 8 - 18 01/06/2023 4:50 AM [facility] BUN/Creatinine Ratio 34(H) 7 - 23 01/06/2023 4:50 AM [facility] Osmolality Calculated 289 270 - 300 mOsm/kg 01/06/2023 4:50 AM [facility] Albumin/Globulin Ratio 0.6(L) 1.1 - 2.3 01/06/2023 4:50 AM [facility] eGFR by CKD-EPI >90 >=90 mL/min/1.7 3 m2 01/06/2023 4:50 AM [facility] Blood BLOOD SPECIMEN / Unknown Venipuncture / Unknown 01/06/2023 4:11 AM CDT 01/06/2023 4:18 AM CDT Ck Small MD LAB - CHEMISTRY ORDERABLES Performing Organization Address City/[facility]/ZIP Co de Phone Number [address] [address], [facility] [phone] * (ABNORMAL) CALCIUM IONIZED WHOLE BLOOD (01/06/2023 4:11 AM CDT) Calcium Ionized 1.28 mmol/L 01/06/2023 4:23 AM [facility] pH 7.48(H) 7.35 - 7.45 pH 01/06/2023 4:23 AM [facility] Ionized Calcium pH Adjusted 1.32 1.19 - 1.34 mmol/L 01/06/2023 4:23 AM [facility] Blood BLOOD SPECIMEN / Unknown Venipuncture / Unknown 01/06/2023 4:11 AM CDT 01/06/2023 4:16 AM CDT Ck Small MD LAB - CHEMISTRY ORDERABLES [address] [address], [facility] [phone] * (ABNORMAL) CBC W AUTO DIFFERENTIAL (01/06/2023 4:11 AM [facility]) WBC 8.4 3.5 - 10.5 10? 3 /uL 01/06/2023 4:44 AM [facility] RBC 3.37(L) 4.30 - 5.70 10? 6 /uL 01/06/2023 4:44 AM [facility] Hemoglobin 10.3(L) 12.0 - 17.6 g/dL 01/06/2023 4:44 AM [facility] Hematocrit 32.2(L) 35.2 - 51.7 % 01/06/2023 4:44 AM [facility] MCV 95.5 80.7 - 98.3 fL 01/06/2023 4:44 AM [facility] MCH 30.6 26.7 - 34.0 pg 01/06/2023 4:44 AM [facility] MCHC 32.0 30.8 - 35.9 g/dL 01/06/2023 4:44 AM [facility] RDW-SD 64.6(H) 36.0 - 50.0 fL 01/06/2023 4:44 AM [facility] RDW-CV 18.6(H) 11.2 - 14.8 % 01/06/2023 4:44 AM [facility] Platelet Count 204 150 - 400 10? 3 /uL 01/06/2023 4:44 AM [facility] MPV 12.8 9.4 - 12.9 fL 01/06/2023 4:44 AM [facility] nRBC Absolute 0.00 0 10? 3 /uL 01/06/2023 4:44 AM [facility] nRBC Auto 0.0 0 /100 WBC 01/06/2023 4:44 AM [facility] Neutrophils % 56.5 35.0 - 70.0 % 01/06/2023 4:44 AM [facility] Lymphocytes % 27.9 20.0 - 43.0 % 01/06/2023 4:44 AM [facility] Monocytes % 12.5 5.0 - 13.0 % 01/06/2023 4:44 AM [facility] Eosinophils % 2.4 0.0 - 6.0 % 01/06/2023 4:44 AM [facility] Basophil % 0.2 0.0 - 2.0 % 01/06/2023 4:44 AM [facility] Neutrophils Absolute 4.75 1.60 - 7.00 10? 3 /uL 01/06/2023 4:44 AM [facility] Lymphocyte Absolute 2.35 1.10 - 3.90 10? 3 /uL 01/06/2023 4:44 AM [facility] Monocytes Absolute 1.05 0.26 - 1.07 10? 3 /uL 01/06/2023 4:44 AM [facility] Eosinophils Absolute 0.20 0.00 - 0.47 10? 3 /uL 01/06/2023 4:44 AM [facility] Basophils Absolute 0.02 0.00 - 0.08 10? 3 /uL 01/06/2023 4:44 AM [facility] Immature Granulocytes % 0.5 0.0 - 1.0 % 01/06/2023 4:44 AM [facility] Immature Granulocytes Absolute 0.04 01/06/2023 4:44 AM [facility] Blood BLOOD SPECIMEN / Unknown Venipuncture / Unknown 01/06/2023 4:11 AM CDT 01/06/2023 4:19 AM CDT Ck Small MD LAB - HEMATOLOG Y ORDERABLES Performing Organization Address [facility] Co de Phone Number [address] [address], [facility] [phone] * (ABNORMAL) PHOSPHORUS BLOOD (01/05/2023 3:41 AM CDT) Phosphorus 2.4(L) 2.8 - 5.1 mg/dL 01/05/2023 4:16 AM T [facility] Blood BLOOD SPECIMEN / Unknown Venipuncture / Unknown 01/05/2023 3:41 AM CDT 01/05/2023 3:47 AM CDT Ck Small MD LAB - CHEMISTRY ORDERABLES [address] [address], [place] [phone] * MAGNESIUM BLOOD (01/05/2023 3:41 AM CDT) Magnesium 1.8 1.6 - 2.6 mg/dL 01/05/2023 4:16 AM [facility] Blood BLOOD SPECIMEN / Unknown Venipuncture / Unknown 01/05/2023 3:41 AM CDT 01/05/2023 3:47 AM CDT Ck Small MD LAB - CHEMISTRY ORDERABLES [address] [address], [facility] [phone] * (ABNORMAL) COMPREHENSIVE METABOLIC PANEL (01/05/2023 3:41 AM CDT) BUN 17 7 - 26 mg/dL 01/05/2023 4:16 AM [facility] Creatinine 0.51(L) 0.71 - 1.16 mg/dL 01/05/2023 4:16 AM [facility] Sodium 139 136 - 145 mmol/L 01/05/2023 4:16 AM [facility] Potassium 3.8 3.5 - 4.5 mmol/L 01/05/2023 4:16 AM [facility] Chloride 107 98 - 107 mmol/L 01/05/2023 4:16 AM [facility] CO2 28 22 - 29 mmol/L 01/05/2023 4:16 AM [facility] Glucose 98 70 - 115 mg/dL 01/05/2023 4:16 AM [facility] Calcium 9.6 8.4 - 10.2 mg/dL 01/05/2023 4:16 AM [facility] Protein Total 7.2 6.0 - 8.3 g/dL 01/05/2023 4:16 AM [facility] Albumin 2.8(L) 3.4 - 5.0 g/dL 01/05/2023 4:16 AM [facility] Bilirubin Total 0.2 0.2 - 1.2 mg/dL 01/05/2023 4:16 AM [facility] Alkaline Phosphatase 105 40 - 150 U/L 01/05/2023 4:16 AM [facility] ALT 9 5 - 55 U/L 01/05/2023 4:16 AM [facility] AST 14 5 - 34 U/L 01/05/2023 4:16 AM [facility] Anion Gap 8 8 - 18 01/05/2023 4:16 AM [facility] BUN/Creatinine Ratio 33(H) 7 - 23 01/05/2023 4:16 AM [facility] Osmolality Calculated 290 270 - 300 mOsm/kg 01/05/2023 4:16 AM [facility] Albumin/Globulin Ratio 0.6(L) 1.1 - 2.3 01/05/2023 4:16 AM [facility] eGFR by CKD-EPI >90 >=90 mL/min/1.7 3 m2 01/05/2023 4:16 AM [facility] Blood BLOOD SPECIMEN / Unknown Venipuncture / Unknown 01/05/2023 3:41 AM CDT 01/05/2023 3:47 AM T Ck Small MD LAB - CHEMISTRY ORDERABLES Performing Organization Address [facility] Co de Phone Number [address] [id number] [phone] * CALCIUM IONIZED WHOLE BLOOD (01/05/2023 3:41 AM CDT) Calcium Ionized 1.28 mmol/L 01/05/2023 3:50 AM [facility] pH 7.44 7.35 - 7.45 pH 01/05/2023 3:50 AM [facility] Ionized Calcium pH Adjusted 1.30 1.19 - 1.34 mmol/L 01/05/2023 3:50 AM [facility] Blood BLOOD SPECIMEN / Unknown Venipuncture / Unknown 01/05/2023 3:41 AM CDT 01/05/2023 3:45 AM CDT Ck Small MD LAB - CHEMISTRY ORDERABLES [facility] [address] [place] [address], [facility] [phone] * (ABNORMAL) CBC W AUTO DIFFERENTIAL (01/05/2023 3:41 AM CDT) WBC 5.7 3.5 - 10.5 10? 3 /uL 01/05/2023 3:50 AM [facility] RBC 3.76(L) 4.30 - 5.70 10? 6 /uL 01/05/2023 3:50 AM [facility] Hemoglobin 11.7(L) 12.0 - 17.6 g/dL 01/05/2023 3:50 AM [facility] Hematocrit 35.3 35.2 - 51.7 % 01/05/2023 3:50 AM [facility] MCV 93.9 80.7 - 98.3 fL 01/05/2023 3:50 AM [facility] MCH 31.1 26.7 - 34.0 pg 01/05/2023 3:50 AM [facility] MCHC 33.1 30.8 - 35.9 g/dL 01/05/2023 3:50 AM [facility] RDW-SD 62.7(H) 36.0 - 50.0 fL 01/05/2023 3:50 AM [facility] RDW-CV 18.3(H) 11.2 - 14.8 % 01/05/2023 3:50 AM [facility] Platelet Count 193 150 - 400 10? 3 /uL 01/05/2023 3:50 AM [facility] MPV 12.9 9.4 - 12.9 fL 01/05/2023 3:50 AM [facility] nRBC Absolute 0.02(H) 0 10? 3 /uL 01/05/2023 3:50 AM [facility] nRBC Auto 0.3(H) 0 /100 WBC 01/05/2023 3:50 AM [facility] Neutrophils % 43.0 35.0 - 70.0 % 01/05/2023 3:50 AM [facility] Lymphocytes % 39.4 20.0 - 43.0 % 01/05/2023 3:50 AM [facility] Monocytes % 12.9 5.0 - 13.0 % 01/05/2023 3:50 AM [facility] Eosinophils % 3.7 0.0 - 6.0 % 01/05/2023 3:50 AM [facility] Basophil % 0.3 0.0 - 2.0 % 01/05/2023 3:50 AM [facility] Neutrophils Absolute 2.46 1.60 - 7.00 10? 3 /uL 01/05/2023 3:50 AM [facility] Lymphocyte Absolute 2.26 1.10 - 3.90 10? 3 /uL 01/05/2023 3:50 AM [facility] Monocytes Absolute 0.74 0.26 - 1.07 10? 3 /uL 01/05/2023 3:50 AM [facility] Eosinophils Absolute 0.21 0.00 - 0.47 10? 3 /uL 01/05/2023 3:50 AM [facility] Basophils Absolute 0.02 0.00 - 0.08 10? 3 /uL 01/05/2023 3:50 AM [facility] Immature Granulocytes % 0.7 0.0 - 1.0 % 01/05/2023 3:50 AM [facility] Immature Granulocytes Absolute 0.04 01/05/2023 3:50 AM [facility] Blood BLOOD SPECIMEN / Unknown Venipuncture / Unknown 01/05/2023 3:41 AM CDT 01/05/2023 3:47 AM T Ck Small MD LAB - HEMATOLOG Y ORDERABLES [facility] [address] [place] [address], [place] [phone] * (ABNORMAL) VALPROIC ACID LEVEL (01/04/2023 8:03 PM CDT) Valproic Acid Total 40(L) 50 - 100 ug/mL 01/04/2023 9:53 PM CDT [facility] Blood BLOOD SPECIMEN / Unknown Venipuncture / Unknown 01/04/2023 8:03 PM CDT 01/04/2023 8:18 PM CDT Ck Small MD LAB - CHEMISTRY ORDERABLES [address] [address], [place] [phone] * PHOSPHORUS BLOOD (01/04/2023 3:17 AM CDT) Phosphorus 2.9 2.8 - 5.1 mg/dL 01/04/2023 3:54 AM CDT [facility] Blood BLOOD SPECIMEN / Unknown Venipuncture / Unknown 01/04/2023 3:17 AM CDT 01/04/2023 3:26 AM CDT Ck Small MD LAB - CHEMISTRY ORDERABLES [address] [address], [place] [phone] * MAGNESIUM BLOOD (01/04/2023 3:17 AM CDT) Magnesium 1.9 1.6 - 2.6 mg/dL 01/04/2023 3:54 AM CDT [facility] Blood BLOOD SPECIMEN / Unknown Venipuncture / Unknown 01/04/2023 3:17 AM CDT 01/04/2023 3:26 AM CDT Ck Small MD LAB - CHEMISTRY ORDERABLES [address] [address], [place] [phone] * (ABNORMAL) COMPREHENSIVE METABOLIC PANEL (01/04/2023 3:17 AM [facility]) BUN 16 7 - 26 mg/dL 01/04/2023 4:02 AM [facility] Creatinine 0.57(L) 0.71 - 1.16 mg/dL 01/04/2023 4:02 AM [facility] Sodium 139 136 - 145 mmol/L 01/04/2023 4:02 AM [facility] Potassium 3.6 3.5 - 4.5 mmol/L 01/04/2023 4:02 AM [facility] Chloride 103 98 - 107 mmol/L 01/04/2023 4:02 AM [facility] CO2 27 22 - 29 mmol/L 01/04/2023 4:02 AM [facility] Glucose 94 70 - 115 mg/dL 01/04/2023 4:02 AM [facility] Calcium 9.0 8.4 - 10.2 mg/dL 01/04/2023 4:02 AM [facility] Protein Total 6.7 6.0 - 8.3 g/dL 01/04/2023 4:02 AM [facility] Albumin 2.6(L) 3.4 - 5.0 g/dL 01/04/2023 4:02 AM [facility] Bilirubin Total 0.2 0.2 - 1.2 mg/dL 01/04/2023 4:02 AM [facility] Alkaline Phosphatase 103 40 - 150 U/L 01/04/2023 4:02 AM [facility] ALT 7 5 - 55 U/L 01/04/2023 4:02 AM [facility] AST 11 5 - 34 U/L 01/04/2023 4:02 AM [facility] Anion Gap 13 8 - 18 01/04/2023 4:02 AM [facility] BUN/Creatinine Ratio 28(H) 7 - 23 01/04/2023 4:02 AM [facility] Osmolality Calculated 289 270 - 300 mOsm/kg 01/04/2023 4:02 AM [facility] Albumin/Globulin Ratio 0.6(L) 1.1 - 2.3 01/04/2023 4:02 AM T [facility] eGFR by CKD-EPI >90 >=90 mL/min/1.7 3 m2 01/04/2023 4:02 AM T [facility] Blood BLOOD SPECIMEN / Unknown Venipuncture / Unknown 01/04/2023 3:17 AM CDT 01/04/2023 3:26 AM CDT Ck Small MD LAB - CHEMISTRY ORDERABLES Performing Organization Address City/[facility]/ZIP Co de Phone Number [address] [address], [facility] [phone] * CALCIUM IONIZED WHOLE BLOOD (01/04/2023 3:17 AM CDT) Calcium Ionized 1.27 mmol/L 01/04/2023 3:25 AM T [facility] pH 7.44 7.35 - 7.45 pH 01/04/2023 3:25 AM T [facility] Ionized Calcium pH Adjusted 1.29 1.19 - 1.34 mmol/L 01/04/2023 3:25 AM T [facility] Blood BLOOD SPECIMEN / Unknown Venipuncture / Unknown 01/04/2023 3:17 AM CDT 01/04/2023 3:22 AM CDT Ck Small MD LAB - CHEMISTRY ORDERABLES Performing Organization Address City/[facility]/ZIP Co de Phone Number [address] [address], [facility] [phone] * (ABNORMAL) CBC W AUTO DIFFERENTIAL (01/04/2023 3:17 AM CDT) WBC 6.2 3.5 - 10.5 10? 3 /uL 01/04/2023 3:33 AM T [facility] RBC 3.33(L) 4.30 - 5.70 10? 6 /uL 01/04/2023 3:33 AM T [facility] Hemoglobin 10.2(L) 12.0 - 17.6 g/dL 01/04/2023 3:33 AM [facility] Hematocrit 31.2(L) 35.2 - 51.7 % 01/04/2023 3:33 AM [facility] MCV 93.7 80.7 - 98.3 fL 01/04/2023 3:33 AM [facility] MCH 30.6 26.7 - 34.0 pg 01/04/2023 3:33 AM [facility] MCHC 32.7 30.8 - 35.9 g/dL 01/04/2023 3:33 AM [facility] RDW-SD 61.8(H) 36.0 - 50.0 fL 01/04/2023 3:33 AM [facility] RDW-CV 18.1(H) 11.2 - 14.8 % 01/04/2023 3:33 AM [facility] Platelet Count 193 150 - 400 10? 3 /uL 01/04/2023 3:33 AM [facility] MPV 13.0(H) 9.4 - 12.9 fL 01/04/2023 3:33 AM [facility] nRBC Absolute 0.00 0 10? 3 /uL 01/04/2023 3:33 AM [facility] nRBC Auto 0.0 0 /100 WBC 01/04/2023 3:33 AM [facility] Neutrophils % 53.6 35.0 - 70.0 % 01/04/2023 3:33 AM [facility] Lymphocytes % 32.5 20.0 - 43.0 % 01/04/2023 3:33 AM [facility] Monocytes % 8.8 5.0 - 13.0 % 01/04/2023 3:33 AM [facility] Eosinophils % 4.3 0.0 - 6.0 % 01/04/2023 3:33 AM [facility] Basophil % 0.3 0.0 - 2.0 % 01/04/2023 3:33 AM [facility] Neutrophils Absolute 3.34 1.60 - 7.00 10? 3 /uL 01/04/2023 3:33 AM [facility] Lymphocyte Absolute 2.03 1.10 - 3.90 10? 3 /uL 01/04/2023 3:33 AM T [facility] Monocytes Absolute 0.55 0.26 - 1.07 10? 3 /uL 01/04/2023 3:33 AM [facility] Eosinophils Absolute 0.27 0.00 - 0.47 10? 3 /uL 01/04/2023 3:33 AM [facility] Basophils Absolute 0.02 0.00 - 0.08 10? 3 /uL 01/04/2023 3:33 AM [facility] Immature Granulocytes % 0.5 0.0 - 1.0 % 01/04/2023 3:33 AM [facility] Immature Granulocytes Absolute 0.03 01/04/2023 3:33 AM [facility] Blood BLOOD SPECIMEN / Unknown Venipuncture / Unknown 01/04/2023 3:17 AM CDT 01/04/2023 3:26 AM T Ck Small MD LAB - HEMATOLOG Y ORDERABLES [facility] [address] [place] [address], [facility] [phone] * (ABNORMAL) BLOOD GASES ART + COOX PANEL (01/03/2023 11:32 AM CDT) pH Arterial 7.49(H) 7.35 - 7.45 pH 01/03/2023 11:40 AM [facility] pO2 Arterial 108(H) 80 - 100 mmHg 01/03/2023 11:40 AM [facility] pCO2 Arterial 34(L) 35 - 45 mmHg 11:40 AM [facility] HCO3 Arterial 25.9 20.0 - 30.0 mmol/L 01/03/2023 11:40 AM [facility] BE Arterial 2.7(H) -2.0 - 2.0 mmol/L 01/03/2023 11:40 AM [facility] Oxyhemoglobin Arterial 97.4 % 01/03/2023 11:40 AM [facility] Dexoyhemoglobin (HHB) % <1.0 % 01/03/2023 11:40 AM T [facility] Methemoglobin 1.1 0.0 - 2.0 % 01/03/2023 11:40 AM T [facility] Carboxyhemoglobin 1.4 0.0 - 2.0 % 2022 11:40 AM [facility] O2 Content Arterial 14.6 Interpret within clinical context ml/dL 01/03/2023 11:40 AM T [facility] Hemoglobin by COOX 10.5(L) 12.0 - 17.6 g/dL 01/03/2023 11:40 AM T [facility] O2 Saturation Arterial 100 90 - 100 % 01/03/2023 11:40 AM T [facility] FI O2 Arterial 35.0 % 01/03/2023 11:40 AM T [facility] Blood, arterial ARTERIAL BLOOD SPECIMEN / Unknown Arterial Puncture / Unknown 01/03/2023 11:32 AM CDT 01/03/2023 11:37 AM CDT Narrative [facility] - 01/03/2023 11:40 AM CDT Carboxyhemoglobin Normal Concentration: Non-smokers: 0-2%; Smokers: 0-9%; Toxic: >20% Ck Small MD LAB - BLOOD GAS ES ORDERABLES Performing Organization Address City/[facility]/ZIP Co de Phone Number [address] [address], [facility] [phone] * PHOSPHORUS BLOOD (01/03/2023 3:39 AM CDT) Phosphorus 3.5 2.8 - 5.1 mg/dL 01/03/2023 4:15 AM CDT [facility] Blood BLOOD SPECIMEN / Unknown Venipuncture / Unknown 01/03/2023 3:39 AM CDT 01/03/2023 3:44 AM CDT Ck Small MD LAB - CHEMISTRY ORDERABLES [address] [place] [address], [facility] [phone] * MAGNESIUM BLOOD (01/03/2023 3:39 AM CDT) Pathologist [facility] [place] Magnesium 1.8 1.6 - 2.6 mg/dL 01/03/2023 4:15 AM [facility] Blood BLOOD SPECIMEN / Unknown Venipuncture / Unknown 01/03/2023 3:39 AM CDT 01/03/2023 3:44 AM CDT Ck Small MD LAB - CHEMISTRY ORDERABLES [address] [address], [facility] [phone] * (ABNORMAL) COMPREHENSIVE METABOLIC PANEL (01/03/2023 3:39 AM CDT) Pathologist [facility] [place] BUN 18 7 - 26 mg/dL 01/03/2023 4:15 AM [facility] Creatinine 0.61(L) 0.71 - 1.16 mg/dL 01/03/2023 4:15 AM [facility] Sodium 132(L) 136 - 145 mmol/L 01/03/2023 4:15 AM [facility] Potassium 3.7 3.5 - 4.5 mmol/L 01/03/2023 4:15 AM [facility] Chloride 100 98 - 107 mmol/L 01/03/2023 4:15 AM [facility] CO2 25 22 - 29 mmol/L 01/03/2023 4:15 AM [facility] Glucose 97 70 - 115 mg/dL 01/03/2023 4:15 AM [facility] Calcium 8.8 8.4 - 10.2 mg/dL 01/03/2023 4:15 AM [facility] Protein Total 7.0 6.0 - 8.3 g/dL 01/03/2023 4:15 AM [facility] Albumin 2.5(L) 3.4 - 5.0 g/dL 01/03/2023 4:15 AM [facility] Bilirubin Total 0.2 0.2 - 1.2 mg/dL 01/03/2023 4:15 AM [facility] Alkaline Phosphatase 103 40 - 150 U/L 01/03/2023 4:15 AM [facility] ALT 8 5 - 55 U/L 01/03/2023 4:15 AM [facility] AST 12 5 - 34 U/L 01/03/2023 4:15 AM [facility] Anion Gap 11 8 - 18 01/03/2023 4:15 AM [facility] BUN/Creatinine Ratio 30(H) 7 - 23 01/03/2023 4:15 AM [facility] Osmolality Calculated 276 270 - 300 mOsm/kg 01/03/2023 4:15 AM [facility] Albumin/Globulin Ratio 0.6(L) 1.1 - 2.3 01/03/2023 4:15 AM [facility] eGFR by CKD-EPI >90 >=90 mL/min/1.7 3 m2 01/03/2023 4:15 AM [facility] Blood BLOOD SPECIMEN / Unknown Venipuncture / Unknown 01/03/2023 3:39 AM CDT 01/03/2023 3:44 AM T Ck Small MD LAB - CHEMISTRY ORDERABLES [facility] [address] [place] [address], [facility] [phone] * (ABNORMAL) CALCIUM IONIZED WHOLE BLOOD (01/03/2023 3:39 AM CDT) Pathologist [facility] [place] Calcium Ionized 1.17 mmol/L 01/03/2023 3:47 AM T [facility] pH 7.41 7.35 - 7.45 pH 01/03/2023 3:47 AM [facility] Ionized Calcium pH Adjusted 1.17(L) 1.19 - 1.34 mmol/L 01/03/2023 3:47 AM [facility] Blood BLOOD SPECIMEN / Unknown Venipuncture / Unknown 01/03/2023 3:39 AM CDT 01/03/2023 3:43 AM CDT Ck Small MD LAB - CHEMISTRY ORDERABLES [facility] [address] [place] [address], [facility] [phone] * (ABNORMAL) CBC W AUTO DIFFERENTIAL (01/03/2023 3:39 AM CDT) WBC 6.3 3.5 - 10.5 10? 3 /uL 01/03/2023 3:56 AM [facility] RBC 3.11(L) 4.30 - 5.70 10? 6 /uL 01/03/2023 3:56 AM [facility] Hemoglobin 9.7(L) 12.0 - 17.6 g/dL 01/03/2023 3:56 AM [facility] Hematocrit 28.9(L) 35.2 - 51.7 % 01/03/2023 3:56 AM [facility] MCV 92.9 80.7 - 98.3 fL 01/03/2023 3:56 AM [facility] MCH 31.2 26.7 - 34.0 pg 01/03/2023 3:56 AM [facility] MCHC 33.6 30.8 - 35.9 g/dL 01/03/2023 3:56 AM [facility] RDW-SD 60.5(H) 36.0 - 50.0 fL 01/03/2023 3:56 AM [facility] RDW-CV 17.7(H) 11.2 - 14.8 % 01/03/2023 3:56 AM [facility] Platelet Count 200 150 - 400 10? 3 /uL 01/03/2023 3:56 AM [facility] MPV 01/03/2023 3:56 AM [facility] Comment:Unable to Report Immature Platelet Fraction 15.4(H) 1.1 - 6.2 % 01/03/2023 3:56 AM [facility] nRBC Absolute 0.00 0 10? 3 /uL 01/03/2023 3:56 AM [facility] nRBC Auto 0.0 0 /100 WBC 01/03/2023 3:56 AM [facility] Neutrophils % 59.5 35.0 - 70.0 % 01/03/2023 3:56 AM [facility] Lymphocytes % 30.8 20.0 - 43.0 % 01/03/2023 3:56 AM [facility] Monocytes % 5.6 5.0 - 13.0 % 01/03/2023 3:56 AM [facility] Eosinophils % 3.4 0.0 - 6.0 % 01/03/2023 3:56 AM [facility] Basophil % 0.2 0.0 - 2.0 % 01/03/2023 3:56 AM [facility] Neutrophils Absolute 3.73 1.60 - 7.00 10? 3 /uL 01/03/2023 3:56 AM [facility] Lymphocyte Absolute 1.93 1.10 - 3.90 10? 3 /uL 01/03/2023 3:56 AM [facility] Monocytes Absolute 0.35 0.26 - 1.07 10? 3 /uL 01/03/2023 3:56 AM [facility] Eosinophils Absolute 0.21 0.00 - 0.47 10? 3 /uL 01/03/2023 3:56 AM [facility] Basophils Absolute 0.01 0.00 - 0.08 10? 3 /uL 01/03/2023 3:56 AM [facility] Immature Granulocytes % 0.5 0.0 - 1.0 % 01/03/2023 3:56 AM [facility] Immature Granulocytes Absolute 0.03 01/03/2023 3:56 AM [facility] Blood BLOOD SPECIMEN / Unknown Venipuncture / Unknown 01/03/2023 3:39 AM CDT 01/03/2023 3:44 AM T Ck Small MD LAB - HEMATOLOG Y ORDERABLES [facility] [address] [place] [address], [facility] [phone] * CK BLOOD (01/02/2023 10:08 AM CDT) CK Total 51 30 - 200 U/L 01/02/2023 10:45 AM CDT [facility] Blood BLOOD SPECIMEN / Unknown Venipuncture / Unknown 01/02/2023 10:08 AM CDT 01/02/2023 10:19 AM CDT Blair Cagle MD LAB - CHEMISTRY ORD ERABLES [address] [address], [place] [phone] * PHOSPHORUS BLOOD (01/02/2023 3:39 AM CDT) Pathologist [facility] [place] Phosphorus 3.8 2.8 - 5.1 mg/dL 01/02/2023 4:06 AM CDT [facility] Blood BLOOD SPECIMEN / Unknown Venipuncture / Unknown 01/02/2023 3:39 AM CDT 01/02/2023 3:51 AM CDT Ck Small MD LAB - CHEMISTRY ORDERABLES Performing Organization Address City/[facility]/ZIP Co de Phone Number [address] [address], [place] [phone] * MAGNESIUM BLOOD (01/02/2023 3:39 AM CDT) Pathologist [facility] [place] Magnesium 1.8 1.6 - 2.6 mg/dL 01/02/2023 4:06 AM CDT [facility] Blood BLOOD SPECIMEN / Unknown Venipuncture / Unknown 01/02/2023 3:39 AM CDT 01/02/2023 3:51 AM CDT Ck Small MD LAB - CHEMISTRY ORDERABLES [address] [address], [place] [phone] * (ABNORMAL) COMPREHENSIVE METABOLIC PANEL (01/02/2023 3:39 AM [facility]) BUN 21 7 - 26 mg/dL 01/02/2023 4:06 AM [facility] Creatinine 0.63(L) 0.71 - 1.16 mg/dL 01/02/2023 4:06 AM [facility] Sodium 132(L) 136 - 145 mmol/L 01/02/2023 4:06 AM [facility] Potassium 4.2 3.5 - 4.5 mmol/L 01/02/2023 4:06 AM [facility] Chloride 100 98 - 107 mmol/L 01/02/2023 4:06 AM [facility] CO2 25 22 - 29 mmol/L 01/02/2023 4:06 AM [facility] Glucose 80 70 - 115 mg/dL 01/02/2023 4:06 AM [facility] Calcium 9.1 8.4 - 10.2 mg/dL 01/02/2023 4:06 AM [facility] Protein Total 7.0 6.0 - 8.3 g/dL 01/02/2023 4:06 AM [facility] Albumin 2.6(L) 3.4 - 5.0 g/dL 01/02/2023 4:06 AM [facility] Bilirubin Total 0.2 0.2 - 1.2 mg/dL 01/02/2023 4:06 AM [facility] Alkaline Phosphatase 95 40 - 150 U/L 01/02/2023 4:06 AM [facility] ALT 37 5 - 55 U/L 01/02/2023 4:06 AM [facility] AST 13 5 - 34 U/L 01/02/2023 4:06 AM [facility] Anion Gap 11 8 - 18 01/02/2023 4:06 AM [facility] BUN/Creatinine Ratio 33(H) 7 - 23 01/02/2023 4:06 AM [facility] Osmolality Calculated 276 270 - 300 mOsm/kg 01/02/2023 4:06 AM [facility] Albumin/Globulin Ratio 0.6(L) 1.1 - 2.3 01/02/2023 4:06 AM CDT [facility] eGFR by CKD-EPI >90 >=90 mL/min/1.7 3 m2 01/02/2023 4:06 AM CDT [facility] Blood BLOOD SPECIMEN / Unknown Venipuncture / Unknown 01/02/2023 3:39 AM CDT 01/02/2023 3:51 AM CDT Ck Small MD LAB - CHEMISTRY ORDERABLES Performing Organization Address City/[facility]/ZIP Co de Phone Number [facility] [address] [place] [phone], [facility] [phone] * CALCIUM IONIZED WHOLE BLOOD (01/02/2023 3:39 AM CDT) Calcium Ionized 1.24 mmol/L 01/02/2023 3:50 AM CDT [facility] pH 7.43 7.35 - 7.45 pH 01/02/2023 3:50 AM T [facility] Ionized Calcium pH Adjusted 1.26 1.19 - 1.34 mmol/L 01/02/2023 3:50 AM CDT [facility] Blood BLOOD SPECIMEN / Unknown Venipuncture / Unknown 01/02/2023 3:39 AM CDT 01/02/2023 3:43 AM CDT Ck Small MD LAB - CHEMISTRY ORDERABLES Performing Organization Address [facility]/ZIP Co de Phone Number [address] [address], [facility] [phone] * (ABNORMAL) CBC W AUTO DIFFERENTIAL (01/02/2023 3:39 AM CDT) WBC 5.9 3.5 - 10.5 10? 3 /uL 01/02/2023 3:49 AM CDT [facility] RBC 3.20(L) 4.30 - 5.70 10? 6 /uL 01/02/2023 3:49 AM CDT [facility] Hemoglobin 10.1(L) 12.0 - 17.6 g/dL 01/02/2023 3:49 AM [facility] Hematocrit 30.1(L) 35.2 - 51.7 % 01/02/2023 3:49 AM [facility] MCV 94.1 80.7 - 98.3 fL 01/02/2023 3:49 AM [facility] MCH 31.6 26.7 - 34.0 pg 01/02/2023 3:49 AM [facility] MCHC 33.6 30.8 - 35.9 g/dL 01/02/2023 3:49 AM [facility] RDW-SD 60.2(H) 36.0 - 50.0 fL 01/02/2023 3:49 AM [facility] RDW-CV 17.5(H) 11.2 - 14.8 % 01/02/2023 3:49 AM [facility] Platelet Count 212 150 - 400 10? 3 /uL 01/02/2023 3:49 AM [facility] MPV 12.4 9.4 - 12.9 fL 01/02/2023 3:49 AM [facility] nRBC Absolute 0.00 0 10? 3 /uL 01/02/2023 3:49 AM [facility] nRBC Auto 0.0 0 /100 WBC 01/02/2023 3:49 AM [facility] Neutrophils % 54.5 35.0 - 70.0 % 01/02/2023 3:49 AM [facility] Lymphocytes % 34.7 20.0 - 43.0 % 01/02/2023 3:49 AM [facility] Monocytes % 7.5 5.0 - 13.0 % 01/02/2023 3:49 AM [facility] Eosinophils % 2.7 0.0 - 6.0 % 01/02/2023 3:49 AM [facility] Basophil % 0.3 0.0 - 2.0 % 01/02/2023 3:49 AM [facility] Neutrophils Absolute 3.18 1.60 - 7.00 10? 3 /uL 01/02/2023 3:49 AM [facility] Lymphocyte Absolute 2.03 1.10 - 3.90 10? 3 /uL 01/02/2023 3:49 AM CDT [facility] Monocytes Absolute 0.44 0.26 - 1.07 10? 3 /uL 01/02/2023 3:49 AM CDT [facility] Eosinophils Absolute 0.16 0.00 - 0.47 10? 3 /uL 01/02/2023 3:49 AM CDT [facility] Basophils Absolute 0.02 0.00 - 0.08 10? 3 /uL 01/02/2023 3:49 AM CDT [facility] Immature Granulocytes % 0.3 0.0 - 1.0 % 01/02/2023 3:49 AM CDT [facility] Immature Granulocytes Absolute 0.02 01/02/2023 3:49 AM CDT [facility] Blood BLOOD SPECIMEN / Unknown Venipuncture / Unknown 01/02/2023 3:39 AM CDT 01/02/2023 3:44 AM CDT Ck Small MD LAB - HEMATOLOG Y ORDERABLES Performing Organization Address City/[facility]/ZIP Co de Phone Number [address] [address], [facility] [phone] * CORTISOL BLOOD AM (01/02/2023 3:39 AM CDT) [facility] Signature Cortisol AM 7.8 3.7 - 19.4 ug/dL 01/02/2023 4:23 AM CDT [facility] Blood BLOOD SPECIMEN / Unknown Venipuncture / Unknown 01/02/2023 3:39 AM CDT 01/02/2023 3:51 AM CDT Narrative [facility] - 01/02/2023 4:23 AM CDT Normal cortisol levels are generally highest in the morning hours and lowest from late evening through the brusher tender hours (8 PM to 4 AM). ??The PM measurements of cortisol run approximately one-half to one-third of the AM values. Blair Cagle MD LAB - CHEMISTRY ORD ERABLES Performing Organization Address City/[facility]/ZIP Co de Phone Number [address] [address], [place] [phone] * (ABNORMAL) VITAMIN B12 (01/02/2023 3:39 AM CDT) Vitamin B12 1,814(H) 213 - 816 pg/mL 01/02/2023 4:38 AM CDT [facility] Blood BLOOD SPECIMEN / Unknown Venipuncture / Unknown 01/02/2023 3:39 AM CDT 01/02/2023 3:51 AM CDT Blair Cagle MD LAB - CHEMISTRY ORD ERABLES [address] [address], [place] [phone] * FOLATE (01/02/2023 3:39 AM CDT) Folate 14.7 7.0 - 31.4 ng/mL 01/02/2023 4:38 AM CDT [facility] Blood BLOOD SPECIMEN / Unknown Venipuncture / Unknown 01/02/2023 3:39 AM CDT 01/02/2023 3:51 AM CDT Blair Cagle MD LAB - CHEMISTRY ORD ERABLES [address] [address], [place] [phone] * FERRITIN (01/02/2023 3:39 AM CDT) Ferritin 55 22 - 275 ng/mL 01/02/2023 5:11 AM CDT [facility] Blood BLOOD SPECIMEN / Unknown Venipuncture / Unknown 01/02/2023 3:39 AM CDT 01/02/2023 3:43 AM CDT Blair Cagle MD LAB - CHEMISTRY ORD ERABLES [address] [address], [place] [phone] * IRON + TRANSFERRIN PANEL (01/02/2023 3:39 AM CDT) Iron 53 50 - 175 ug/dL 01/02/2023 4:53 AM CDT [facility] Transferrin 255 174 - 382 mg/dL 01/02/2023 4:53 AM CDT [facility] Transferrin Saturation % 17 16 - 50 % 01/02/2023 4:53 AM CDT [facility] TIBC Calculated 319 240 - 450 ug/dL 01/02/2023 4:53 AM CDT [facility] Blood BLOOD SPECIMEN / Unknown Venipuncture / Unknown 01/02/2023 3:39 AM CDT 01/02/2023 3:43 AM CDT Blair Cagle MD LAB - CHEMISTRY ORD ERABLES Performing Organization Address [facility] Co de Phone Number [address] [address], [place] [phone] * (ABNORMAL) TRIGLYCERIDES BLOOD (01/02/2023 3:39 AM CDT) Triglycerides 736(H) <150 mg/dL 01/02/2023 4:06 AM CDT [facility] Comment: ATP III Classification of Triglycerides: ?<150 mg/dL: ??Normal ? 150 - 199 mg/dL: ??Borderline High ? 200 - 400 mg/dL: ??High ?>500 mg/dL: ??Very High Blood BLOOD SPECIMEN / Unknown Venipuncture / Unknown 01/02/2023 3:39 AM CDT 01/02/2023 3:51 AM CDT Ck Small MD LAB - CHEMISTRY ORDERABLES Performing Organization Address [facility]/ZIP Co de Phone Number [address] [address], [place] [phone] * CT HEAD WO CONTRAST (01/01/2023 1:03 PM CDT) Anatomical Region Laterality Modality Head Computed Tomogra phy 01/01/2023 6:03 PM CDT Impressions 01/01/2023 6:10 PM CDT IMPRESSION: 1.No acute intracranial hemorrhage, midline shift, or significant mass effect. 2.Please note that CT is insensitive to nonhemorrhagic strokes and MRI of the brain should be considered if there is clinical concern for acute cerebral infarction. 3.Paranasal sinuses and mastoid air cell disease as outlined. > Interpreting Provider: Wojciech Neil MD on 01/01/2023 6:10 PM Narrative 01/01/2023 6:10 PM CDT PROCEDURE: ??CT HEAD WO CONTRAST, DATE/TIME OF EXAM: ??01/01/2023 1:04 PM, LOCATION ??[facility] INDICATION: G93.40: Acute encephalopathy EXAMINATION: Computed tomography (CT) of the head without contrast ADDITIONAL CLINICAL INFORMATION: Ordering Provider Reason For Exam: ??Seizures Technologist Note: ??None Additional: ??None. ?? TECHNIQUE: CT of the head was performed without contrast according to standard protocol. CT dose reduction technique was used, including Automated Exposure Control. COMPARISON: No prior study is available for comparison at the time of this dictation. Correlation with CT of the sinuses from 11/25/2022. FINDINGS: No acute intra- or extra-axial fluid collections are identified. There is advanced cerebral and cerebellar volume loss with associated ex vacuo ventricular dilatation. Ventricular prominence is disproportionate to sulcal dilation which is a nonspecific finding and likely related to central volume loss however, a superimposed element of normal pressure hydrocephalus cannot be totally excluded and should be correlated clinically. The basilar cisterns are patent. No mass effect or midline shift is seen. 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 Chronic encephalomalacia is again noted in the right occipital lobe. The garber-white matter differentiation otherwise appears normal. Confluent periventricular white matter hypoattenuation is indicative of chronic small vessel ischemic disease. There is vascular calcification of the carotid siphons and faintly the V4 segments of the vertebral arteries. Chronic nasal bone deformity is are noted. No acute calvarial fracture is identified. The orbits appear normal. There is scattered paranasal sinus disease. Redemonstration of near complete opacification of the right maxillary sinus. [address] of the paranasal sinuses for additional details. There is diffuse, partial opacification of the right mastoid air cells. Minimal opacification in the left mastoid air cells. No soft tissue abnormality is identified. Procedure Note Wojciech Neil MD - 01/01/2023 PROCEDURE: CT HEAD WO CONTRAST, DATE/TIME OF EXAM: 01/01/2023 1:04 PM, LOCATION [facility] INDICATION: G93.40: Acute encephalopathy EXAMINATION: Computed tomography (CT) of the head without contrast ADDITIONAL CLINICAL INFORMATION: Ordering Provider Reason For Exam: Seizures Technologist Note: None Additional: None. TECHNIQUE: CT of the head was performed without contrast according to standard protocol. CT dose reduction technique was used, including Automated Exposure Control. COMPARISON: No prior study is available for comparison at the time ofthis dictation. Correlation with CT of the sinuses from 11/25/2022. FINDINGS: No acute intra- or extra-axial fluid collections are identified. There is advanced cerebral and cerebellar volume loss with associated ex vacuo ventricular dilatation. Ventricular prominence is disproportionateto sulcal dilation which is a nonspecific finding and likely related to central volume loss however, a superimposed element of normal pressure hydrocephalus cannot be totally excluded and should be correlated clinically. The basilar cisterns are patent. No mass effect or midline shift isseen. 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 Chronic encephalomalacia is again noted in the right occipital lobe. The garber-white matter differentiation otherwise appears normal. Confluent periventricular white matter hypoattenuation is indicative of chronic small vessel ischemic disease. There is vascular calcification of the carotid siphons and faintly the V4 segments of the vertebral arteries. Chronic nasal bone deformity is are noted. No acute calvarial fractureis identified. The orbits appear normal. There is scattered paranasal sinus disease. Redemonstration of near complete opacification of the right maxillary sinus. [address] of the paranasal sinuses for additional details. There is diffuse, partial opacification of the right mastoid air cells. Minimal opacification in the left mastoid air cells. No soft tissue abnormalityis identified. IMPRESSION: 1.No acute intracranial hemorrhage, midline shift, or significant mass effect. 2.Please note that CT is insensitive to nonhemorrhagic strokes and MRIof the brain should be considered if there is clinical concern for acute cerebral infarction. 3.Paranasal sinuses and mastoid air cell disease as outlined. > Interpreting Provider: Wojciech Neil MD on 01/01/2023 6:10 PM Blair Cagle MD CT ORDERABLES * PHOSPHORUS BLOOD (01/01/2023 4:22 AM CDT) Phosphorus 3.4 2.8 - 5.1 mg/dL 01/01/2023 5:21 AM CDT [facility] Blood BLOOD SPECIMEN / Unknown Venipuncture / Unknown 01/01/2023 4:22 AM CDT 01/01/2023 4:48 AM CDT Ck Small MD LAB - CHEMISTRY ORDERABLES [address] [address], [facility] [phone] * MAGNESIUM BLOOD (01/01/2023 4:22 AM CDT) Magnesium 1.8 1.6 - 2.6 mg/dL 01/01/2023 5:21 AM CDT [facility] Blood BLOOD SPECIMEN / Unknown Venipuncture / Unknown 01/01/2023 4:22 AM CDT 01/01/2023 4:48 AM CDT Ck Small MD LAB - CHEMISTRY ORDERABLES [address] [address], [facility] [phone] * (ABNORMAL) COMPREHENSIVE METABOLIC PANEL (01/01/2023 4:22 AM CDT) BUN 19 7 - 26 mg/dL 01/01/2023 5:21 AM [facility] Creatinine 0.61(L) 0.71 - 1.16 mg/dL 01/01/2023 5:21 AM [facility] Sodium 130(L) 136 - 145 mmol/L 01/01/2023 5:21 AM [facility] Potassium 4.9(H) 3.5 - 4.5 mmol/L 01/01/2023 5:21 AM [facility] Chloride 101 98 - 107 mmol/L 01/01/2023 5:21 AM [facility] CO2 27 22 - 29 mmol/L 01/01/2023 5:21 AM [facility] Glucose 84 70 - 115 mg/dL 01/01/2023 5:21 AM [facility] Calcium 9.4 8.4 - 10.2 mg/dL 01/01/2023 5:21 AM [facility] Protein Total 6.7 6.0 - 8.3 g/dL 01/01/2023 5:21 AM [facility] Albumin 2.6(L) 3.4 - 5.0 g/dL 01/01/2023 5:21 AM [facility] Bilirubin Total 0.2 0.2 - 1.2 mg/dL 01/01/2023 5:21 AM [facility] Alkaline Phosphatase 92 40 - 150 U/L 01/01/2023 5:21 AM [facility] ALT 8 5 - 55 U/L 01/01/2023 5:21 AM [facility] AST 12 5 - 34 U/L 01/01/2023 5:21 AM [facility] Anion Gap 7(L) 8 - 18 01/01/2023 5:21 AM [facility] BUN/Creatinine Ratio 31(H) 7 - 23 01/01/2023 5:21 AM [facility] Osmolality Calculated 271 270 - 300 mOsm/kg 01/01/2023 5:21 AM [facility] Albumin/Globulin Ratio 0.6(L) 1.1 - 2.3 01/01/2023 5:21 AM [facility] eGFR by CKD-EPI >90 >=90 mL/min/1.7 3 m2 01/01/2023 5:21 AM CDT [facility] Blood BLOOD SPECIMEN / Unknown Venipuncture / Unknown 01/01/2023 4:22 AM CDT 01/01/2023 4:48 AM CDT Ck Small MD LAB - CHEMISTRY ORDERABLES Performing Organization Address [facility]/ZIP Co de Phone Number [address] [address], [facility] [phone] * CALCIUM IONIZED WHOLE BLOOD (01/01/2023 4:22 AM CDT) Calcium Ionized 1.33 mmol/L 01/01/2023 4:51 AM CDT [facility] pH 7.39 7.35 - 7.45 pH 01/01/2023 4:51 AM T [facility] Ionized Calcium pH Adjusted 1.32 1.19 - 1.34 mmol/L 01/01/2023 4:51 AM T [facility] Blood BLOOD SPECIMEN / Unknown Venipuncture / Unknown 01/01/2023 4:22 AM CDT 01/01/2023 4:43 AM CDT Ck Small MD LAB - CHEMISTRY ORDERABLES Performing Organization Address City/[facility]/ZIP Co de Phone Number [address] [address], [facility] [phone] * (ABNORMAL) CBC W AUTO DIFFERENTIAL (01/01/2023 4:22 AM CDT) WBC 6.5 3.5 - 10.5 10? 3 /uL 01/01/2023 4:54 AM T [facility] RBC 3.30(L) 4.30 - 5.70 10? 6 /uL 01/01/2023 4:54 AM T [facility] Hemoglobin 10.0(L) 12.0 - 17.6 g/dL 01/01/2023 4:54 AM T [facility] Hematocrit 31.4(L) 35.2 - 51.7 % 01/01/2023 4:54 AM [facility] MCV 95.2 80.7 - 98.3 fL 01/01/2023 4:54 AM [facility] MCH 30.3 26.7 - 34.0 pg 01/01/2023 4:54 AM [facility] MCHC 31.8 30.8 - 35.9 g/dL 01/01/2023 4:54 AM [facility] RDW-SD 60.2(H) 36.0 - 50.0 fL 01/01/2023 4:54 AM [facility] RDW-CV 17.2(H) 11.2 - 14.8 % 01/01/2023 4:54 AM [facility] Platelet Count 232 150 - 400 10? 3 /uL 01/01/2023 4:54 AM [facility] MPV 12.3 9.4 - 12.9 fL 01/01/2023 4:54 AM [facility] nRBC Absolute 0.00 0 10? 3 /uL 01/01/2023 4:54 AM [facility] nRBC Auto 0.0 0 /100 WBC 01/01/2023 4:54 AM [facility] Neutrophils % 54.6 35.0 - 70.0 % 01/01/2023 4:54 AM [facility] Lymphocytes % 35.3 20.0 - 43.0 % 01/01/2023 4:54 AM [facility] Monocytes % 7.5 5.0 - 13.0 % 01/01/2023 4:54 AM [facility] Eosinophils % 1.8 0.0 - 6.0 % 01/01/2023 4:54 AM [facility] Basophil % 0.3 0.0 - 2.0 % 01/01/2023 4:54 AM [facility] Neutrophils Absolute 3.57 1.60 - 7.00 10? 3 /uL 01/01/2023 4:54 AM [facility] Lymphocyte Absolute 2.31 1.10 - 3.90 10? 3 /uL 01/01/2023 4:54 AM [facility] Monocytes Absolute 0.49 0.26 - 1.07 10? 3 /uL 01/01/2023 4:54 AM CDT [facility] Eosinophils Absolute 0.12 0.00 - 0.47 10? 3 /uL 01/01/2023 4:54 AM CDT [facility] Basophils Absolute 0.02 0.00 - 0.08 10? 3 /uL 01/01/2023 4:54 AM CDT [facility] Immature Granulocytes % 0.5 0.0 - 1.0 % 01/01/2023 4:54 AM CDT [facility] Immature Granulocytes Absolute 0.03 01/01/2023 4:54 AM CDT [facility] Blood BLOOD SPECIMEN / Unknown Venipuncture / Unknown 01/01/2023 4:22 AM CDT 01/01/2023 4:49 AM CDT Ck Small MD LAB - HEMATOLOG Y ORDERABLES [address] [address], [facility] [phone] * TSH REFLEX FREE T4 (01/01/2023 4:22 AM CDT) TSH 2.578 0.350 - 4.940 uIU/mL 01/01/2023 5:36 AM CDT [facility] Blood BLOOD SPECIMEN / Unknown Venipuncture / Unknown 01/01/2023 4:22 AM CDT 01/01/2023 4:48 AM CDT Ck Small MD LAB - CHEMISTRY ORDERABLES [address] [address], [facility] [phone] * AMMONIA (01/01/2023 12:46 AM CDT) Ammonia 31 <=72 umol/L 01/01/2023 1:28 AM CDT [facility] Blood BLOOD SPECIMEN / Unknown Venipuncture / Unknown 01/01/2023 12:46 AM CDT 01/01/2023 1:09 AM CDT Ck Small MD LAB - CHEMISTRY ORDERABLES [facility] [address] [place] [address], [place] [phone] * VALPROIC ACID LEVEL (12/31/2022 11:05 PM CDT) Valproic Acid Total 86 50 - 100 ug/mL 12/31/2022 11:36 PM CDT [facility] Blood BLOOD SPECIMEN / Unknown Venipuncture / Unknown 12/31/2022 11:05 PM CDT 12/31/2022 11:19 PM CDT Ck Small MD LAB - CHEMISTRY ORDERABLES Performing Organization Address [facility]/ZIP Co de Phone Number [facility] [address] [place] [address], [place] [phone] * (ABNORMAL) LEVETIRACETAM LEVEL (12/31/2022 11:05 PM CDT) Levetiracetam 57(H) 10 - 40 ug/mL 01/02/2023 6:44 PM CDT [facility] ([facility]) Comment: INTERPRETIVE INFORMATION: Keppra (Levetiracetam) Therapeutic Range: ??10-40 ug/mL ?Toxic: ??Not well Established Pharmacokinetics of levetiracetam are affected by renal function. Adverse effects may include somnolence, weakness, headache and vomiting. This levetiracetam (Keppra) immunoassay uses the [employer] reagents, which has known cross-reactivity with the drug brivaracetam (Briviact) and may report inaccurate results. Patients transitioning from levetiracetam to brivaracetam or those who are using both medications should not monitor drug concentrations with the [employer] assay. These patients should be monitored using a validated chromatographic methodology that distinguishes between drugs to determine drug concentrations. Performed By: [facility] [address] [place] [id number] [employer] Clerk: Power Milian MD, PhD CLIA Number: [id number] Blood BLOOD SPECIMEN / Unknown Venipuncture / Unknown 12/31/2022 11:05 PM CDT 12/31/2022 11:19 PM CDT Ck Small MD LAB - THERAPEUT IC DRUG MONITORING ORDERABLES [facility]) [address] [place] [address] * (ABNORMAL) BLOOD GASES ART + COOX PANEL (12/31/2022 10:17 PM CDT) pH Arterial 7.44 7.35 - 7.45 pH 12/31/2022 10:27 PM [facility] pO2 Arterial 151(H) 80 - 100 mmHg 12/31/2022 10:27 PM [facility] pCO2 Arterial 36 35 - 45 mmHg 10:27 PM [facility] HCO3 Arterial 24.5 20.0 - 30.0 mmol/L 12/31/2022 10:27 PM [facility] BE Arterial 0.5 -2.0 - 2.0 mmol/L 12/31/2022 10:27 PM [facility] Oxyhemoglobin Arterial 97.5 % 12/31/2022 10:27 PM [facility] Dexoyhemoglobin (HHB) % <1.0 % 12/31/2022 10:27 PM [facility] Methemoglobin <0.8 0.0 - 2.0 % 12/31/2022 10:27 PM [facility] Carboxyhemoglobin 1.8 0.0 - 2.0 % 2022 10:27 PM [facility] O2 Content Arterial 15.0 Interpret within clinical context ml/dL 12/31/2022 10:27 PM [facility] Hemoglobin by COOX 10.7(L) 12.0 - 17.6 g/dL 12/31/2022 10:27 PM [facility] O2 Saturation Arterial 100 90 - 100 % 12/31/2022 10:27 PM CDT [facility] FI O2 Arterial 30.0 % 12/31/2022 10:27 PM CDT [facility] Blood, arterial ARTERIAL BLOOD SPECIMEN / Unknown Arterial Puncture / Unknown 12/31/2022 10:17 PM CDT 12/31/2022 10:24 PM CDT Narrative [facility] - 12/31/2022 10:27 PM CDT Carboxyhemoglobin Normal Concentration: Non-smokers: 0-2%; Smokers: 0-9%; Toxic: >20% Ck Small MD LAB - BLOOD GAS ES ORDERABLES Performing Organization Address City/[facility]/ZIP Co de Phone Number [facility] [address] [place] [address], [facility] [phone] * EKG 12-LEAD (12/31/2022 9:09 PM CDT) Ventricular Rate 70 BPM [facility] MUSE Atrial Rate 70 BPM [facility] MUSE P-R Interval 150 ms [facility] MUSE QRS Duration ms 96 ms [facility] MUSE Q-T Interval ms 380 ms [facility] MUSE QTC Calculation (Bezet) 410 ms [facility] MUSE Calculated P [place] 69 degrees SL MUSE Calculated R [place] 14 degrees [facility] MUSE Calculated T [place] 79 degrees [facility] MUSE Interpretation EKG NORMAL SINUS RHYTHM SEPTAL INFARCT (CITED ON OR BEFORE 09-OCT-2022) ABNORMAL ECG WHEN COMPARED WITH ECG OF 29-NOV-2022 11:40, VENT. RATE HAS DECREASED BY ??44 BPM Confirmed by USHA OLSEN, NIMISHATEQUILA ([id number]) on 01/03/2023 8:31:19 PM [facility] MUSE 12/31/2022 9:09 PM CDT 01/03/2023 8:31 PM CDT Ck Small MD ECG ORDERABLES Performing Organization Address City/[facility]/ZIP Co de Phone Number [facility] * PHOSPHORUS BLOOD (12/31/2022 8:56 PM CDT) Phosphorus 3.1 2.8 - 5.1 mg/dL 12/31/2022 9:30 PM CDT [facility] Blood BLOOD SPECIMEN / Unknown Venipuncture / Unknown 12/31/2022 8:56 PM CDT 12/31/2022 9:01 PM CDT Ck Small MD LAB - CHEMISTRY ORDERABLES Performing Organization Address City/[facility]/ZIP Co de Phone Number [address] [address], [facility] [phone] * MAGNESIUM BLOOD (12/31/2022 8:56 PM CDT) Magnesium 1.9 1.6 - 2.6 mg/dL 12/31/2022 9:30 PM T [facility] Blood BLOOD SPECIMEN / Unknown Venipuncture / Unknown 12/31/2022 8:56 PM CDT 12/31/2022 9:01 PM CDT Ck Small MD LAB - CHEMISTRY ORDERABLES [address] [address], [facility] [phone] * (ABNORMAL) COMPREHENSIVE METABOLIC PANEL (12/31/2022 8:56 PM CDT) BUN 19 7 - 26 mg/dL 12/31/2022 9:30 PM [facility] Creatinine 0.60(L) 0.71 - 1.16 mg/dL 12/31/2022 9:30 PM [facility] Sodium 131(L) 136 - 145 mmol/L 12/31/2022 9:30 PM [facility] Potassium 4.8(H) 3.5 - 4.5 mmol/L 12/31/2022 9:30 PM [facility] Chloride 102 98 - 107 mmol/L 12/31/2022 9:30 PM [facility] CO2 24 22 - 29 mmol/L 12/31/2022 9:30 PM [facility] Glucose 96 70 - 115 mg/dL 12/31/2022 9:30 PM [facility] Calcium 9.6 8.4 - 10.2 mg/dL 12/31/2022 9:30 PM [facility] Protein Total 6.9 6.0 - 8.3 g/dL 12/31/2022 9:30 PM [facility] Albumin 2.7(L) 3.4 - 5.0 g/dL 12/31/2022 9:30 PM [facility] Bilirubin Total 0.2 0.2 - 1.2 mg/dL 12/31/2022 9:30 PM [facility] Alkaline Phosphatase 100 40 - 150 U/L 12/31/2022 9:30 PM [facility] ALT 8 5 - 55 U/L 12/31/2022 9:30 PM [facility] AST 12 5 - 34 U/L 12/31/2022 9:30 PM [facility] Anion Gap 10 8 - 18 12/31/2022 9:30 PM [facility] BUN/Creatinine Ratio 32(H) 7 - 23 12/31/2022 9:30 PM [facility] Osmolality Calculated 274 270 - 300 mOsm/kg 12/31/2022 9:30 PM [facility] Albumin/Globulin Ratio 0.6(L) 1.1 - 2.3 12/31/2022 9:30 PM [facility] eGFR by CKD-EPI >90 >=90 mL/min/1.7 3 m2 12/31/2022 9:30 PM [facility] Blood BLOOD SPECIMEN / Unknown Venipuncture / Unknown 12/31/2022 8:56 PM CDT 12/31/2022 9:01 PM T Ck Small MD LAB - CHEMISTRY ORDERABLES [facility] [address] [place] [address], [facility] [phone] * (ABNORMAL) CALCIUM IONIZED WHOLE BLOOD (12/31/2022 8:53 PM CDT) Calcium Ionized 1.28 mmol/L 12/31/2022 9:03 PM [facility] pH 7.49(H) 7.35 - 7.45 pH 12/31/2022 9:03 PM [facility] Ionized Calcium pH Adjusted 1.33 1.19 - 1.34 mmol/L 12/31/2022 9:03 PM [facility] Blood BLOOD SPECIMEN / Unknown Venipuncture / Unknown 12/31/2022 8:53 PM CDT 12/31/2022 9:00 PM CDT Ck Small MD LAB - CHEMISTRY ORDERABLES [facility] [address] [place] [address], [facility] [phone] * (ABNORMAL) BLOOD GASES ART + COOX PANEL (12/31/2022 8:53 PM CDT) pH Arterial 7.50(H) 7.35 - 7.45 pH 12/31/2022 9:03 PM [facility] pO2 Arterial 175(H) 80 - 100 mmHg 12/31/2022 9:03 PM [facility] pCO2 Arterial 33(L) 35 - 45 mmHg 9:03 PM [facility] HCO3 Arterial 25.7 20.0 - 30.0 mmol/L 12/31/2022 9:03 PM [facility] BE Arterial 2.7(H) -2.0 - 2.0 mmol/L 12/31/2022 9:03 PM [facility] Oxyhemoglobin Arterial 97.7 % 12/31/2022 9:03 PM [facility] Dexoyhemoglobin (HHB) % <1.0 % 12/31/2022 9:03 PM [facility] Methemoglobin <0.8 0.0 - 2.0 % 12/31/2022 9:03 PM [facility] Carboxyhemoglobin 1.7 0.0 - 2.0 % 2022 9:03 PM [facility] O2 Content Arterial 15.4 Interpret within clinical context ml/dL 12/31/2022 9:03 PM [facility] Hemoglobin by COOX 10.9(L) 12.0 - 17.6 g/dL 12/31/2022 9:03 PM CDT [facility] O2 Saturation Arterial 100 90 - 100 % 12/31/2022 9:03 PM CDT [facility] FI O2 Arterial 30.0 % 12/31/2022 9:03 PM CDT [facility] Blood, arterial ARTERIAL BLOOD SPECIMEN / Unknown Arterial Puncture / Unknown 12/31/2022 8:53 PM CDT 12/31/2022 9:00 PM CDT Narrative [facility] - 12/31/2022 9:03 PM CDT Carboxyhemoglobin Normal Concentration: Non-smokers: 0-2%; Smokers: 0-9%; Toxic: >20% Ck Small MD LAB - BLOOD GAS ES ORDERABLES Performing Organization Address City/[facility]/ZIP Co de Phone Number [address] [address], [facility] [phone] * TROPONIN-I HIGH SENSITIVE (12/31/2022 8:53 PM CDT) Troponin I High Sensitive 4 <=35 ng/L 12/31/2022 9:36 PM CDT [facility] Blood BLOOD SPECIMEN / Unknown Venipuncture / Unknown 12/31/2022 8:53 PM CDT 12/31/2022 9:01 PM CDT Ck Small MD LAB - CHEMISTRY ORDERABLES [address] [address], [facility] [phone] * PT-INR [facility] (12/31/2022 8:53 PM CDT) PT 13.7 12.1 - 14.8 Seconds 12/31/2022 9:23 PM CDT [facility] INR 1.1 See Comment 12/31/2022 9:23 PM CDT [facility] Comment:The suggested therap eutic range for standard coumadin (warfarin) therapy is an INR of 2.0-3.0. For high-risk patients (Mechanical Mitral Valve Prosthesis, etc.), the suggested prophylactic therapeutic range is an INR of 2.5-3.5. Blood BLOOD SPECIMEN / Unknown Venipuncture / Unknown 12/31/2022 8:53 PM CDT 12/31/2022 9:01 PM CDT Ck Small MD LAB - COAGULATI ON ORDERABLES Performing Organization Address [facility]/ZIP Co de Phone Number [address] [address], [facility] [phone] * LACTIC ACID BLOOD (12/31/2022 8:53 PM CDT) [facility] Lactic Acid-Stat 1.6 <=2.0 mmol/L 12/31/2022 9:25 PM CDT [facility] Blood BLOOD SPECIMEN / Unknown Venipuncture / Unknown 12/31/2022 8:53 PM CDT 12/31/2022 9:01 PM CDT Ck Small MD LAB - CHEMISTRY ORDERABLES Performing Organization Address [facility] de Phone Number [address] [address], [facility] [phone] * (ABNORMAL) CBC W AUTO DIFFERENTIAL (12/31/2022 8:53 PM CDT) [facility] WBC 6.8 3.5 - 10.5 10? 3 /uL 12/31/2022 9:06 PM [facility] RBC 3.38(L) 4.30 - 5.70 10? 6 /uL 12/31/2022 9:06 PM [facility] Hemoglobin 10.3(L) 12.0 - 17.6 g/dL 12/31/2022 9:06 PM [facility] Hematocrit 31.1(L) 35.2 - 51.7 % 12/31/2022 9:06 PM [facility] MCV 92.0 80.7 - 98.3 fL 12/31/2022 9:06 PM [facility] MCH 30.5 26.7 - 34.0 pg 12/31/2022 9:06 PM [facility] MCHC 33.1 30.8 - 35.9 g/dL 12/31/2022 9:06 PM [facility] RDW-SD 58.2(H) 36.0 - 50.0 fL 12/31/2022 9:06 PM [facility] RDW-CV 17.2(H) 11.2 - 14.8 % 12/31/2022 9:06 PM [facility] Platelet Count 234 150 - 400 10? 3 /uL 12/31/2022 9:06 PM [facility] MPV 12.1 9.4 - 12.9 fL 12/31/2022 9:06 PM [facility] nRBC Absolute 0.00 0 10? 3 /uL 12/31/2022 9:06 PM [facility] nRBC Auto 0.0 0 /100 WBC 12/31/2022 9:06 PM [facility] Neutrophils % 47.4 35.0 - 70.0 % 12/31/2022 9:06 PM [facility] Lymphocytes % 39.3 20.0 - 43.0 % 12/31/2022 9:06 PM [facility] Monocytes % 9.9 5.0 - 13.0 % 12/31/2022 9:06 PM [facility] Eosinophils % 2.4 0.0 - 6.0 % 12/31/2022 9:06 PM [facility] Basophil % 0.4 0.0 - 2.0 % 12/31/2022 9:06 PM [facility] Neutrophils Absolute 3.21 1.60 - 7.00 10? 3 /uL 12/31/2022 9:06 PM [facility] Lymphocyte Absolute 2.66 1.10 - 3.90 10? 3 /uL 12/31/2022 9:06 PM [facility] Monocytes Absolute 0.67 0.26 - 1.07 10? 3 /uL 12/31/2022 9:06 PM [facility] Eosinophils Absolute 0.16 0.00 - 0.47 10? 3 /uL 12/31/2022 9:06 PM CDT [facility] Basophils Absolute 0.03 0.00 - 0.08 10? 3 /uL 12/31/2022 9:06 PM CDT [facility] Immature Granulocytes % 0.6 0.0 - 1.0 % 12/31/2022 9:06 PM CDT [facility] Immature Granulocytes Absolute 0.04 12/31/2022 9:06 PM CDT [facility] Blood BLOOD SPECIMEN / Unknown Venipuncture / Unknown 12/31/2022 8:53 PM CDT 12/31/2022 9:01 PM CDT Ck Small MD LAB - HEMATOLOG Y ORDERABLES Performing Organization Address City/State/[facility] Co de Phone Number [facility] [address] [place] [address], [facility] [phone] * XR ABDOMEN 1 VW (12/31/2022 8:48 PM CDT) Anatomical Region Laterality Modality Abdomen Radiographic Cynthia ging 12/31/2022 8:55 PM CDT Narrative 01/01/2023 12:36 PM CDT PROCEDURE: ??XR ABDOMEN KUB DATE/TIME OF EXAM: ??12/31/2022 8:49 PM CLINICAL INFORMATION: None relevant/not provided if blank. Indication: Z93.1: PEG (percutaneous endoscopic gastrostomy) status (CMS/HCC) Additional History: COMPARISON: KUB dated 08/28/2022 FINDINGS/IMPRESSION: There is a GJ tube. Contrast is seen within the stomach, duodenum, and jejunal bowel loops. No evidence of extraluminal contrast extravasation. > Dictated by Usman Arce MD I, Shane Mckenzie DO have personally reviewed and interpreted this examination/study. > Interpreting Provider: Shane Mckenzie DO on 01/01/2023 12:36 PM Procedure Note Shane Mckenzie DO - 01/01/2023 PROCEDURE: XR ABDOMEN KUB DATE/TIME OF EXAM: 12/31/2022 8:49 PM CLINICAL INFORMATION: None relevant/not provided if blank. Indication: Z93.1: PEG (percutaneous endoscopic gastrostomy) status ([facility]) Additional History: COMPARISON: KUB dated 08/28/2022 FINDINGS/IMPRESSION: There is a GJ tube. Contrast is seen within the stomach, duodenum, and jejunal bowel loops. No evidence of extraluminal contrast extravasation. > Dictated by Usman Arce MD I, Matthew Hrastich, DO have personally reviewed and interpreted this examination/study. > Interpreting Provider: Shane Mckenzie DO on 01/01/2023 12:36 PM Ck Small MD DIAGNOSTIC IMAG ING ORDERABLES * XR CHEST 1VW PORTABLE (12/31/2022 8:35 PM CDT) Anatomical Region Laterality Modality Chest Radiographic Cynthia ging 01/01/2023 9:18 AM CDT Narrative 01/01/2023 12:35 PM CDT PROCEDURE: ??XR CHEST 1VW PORTABLE, DATE/TIME OF EXAM: ??12/31/2022 8:47 PM, LOCATION ??[facility] INDICATION: Z93.0: Tracheostomy in place ([facility]) ADDITIONAL CLINICAL INFORMATION: Ordering Provider Reason For Exam: ??Trach position COMPARISON: Chest x-ray 12/14/2022. TECHNIQUE: Frontal radiograph of the chest. FINDINGS/IMPRESSION: Devices/lines: *Right upper extremity PICC projects into the SVC *Tracheostomy tube is seen projecting to the level of the thoracic inlet There is no focal consolidation, pleural effusion, or pneumothorax. The cardiomediastinal silhouette is normal. The visible bony thorax is intact. Report dictated by Flavio Stover MD, (presidential helicopter crew chief). Shane Thomason DO have personally reviewed and interpreted this examination/study. > Interpreting Provider: Shane Mckenzie DO on 01/01/2023 12:35 PM Procedure Note Shane Mckenzie DO - 01/01/2023 PROCEDURE: XR CHEST 1VW PORTABLE, DATE/TIME OF EXAM: 12/31/2022 8:47 PM, LOCATION [facility] INDICATION: Z93.0: Tracheostomy in place (CMS/HCC) ADDITIONAL CLINICAL INFORMATION: Ordering Provider Reason For Exam: Trach position COMPARISON: Chest x-ray 12/14/2022. TECHNIQUE: Frontal radiograph of the chest. FINDINGS/IMPRESSION: Devices/lines: *Right upper extremity PICC projects into the SVC *Tracheostomy tube is seen projecting to the level of the thoracic inlet There is no focal consolidation, pleural effusion, or pneumothorax. The cardiomediastinal silhouette is normal. The visible bony thorax isintact. Report dictated by Flavio Stover MD, MD (presidential helicopter crew chief). I, Shane Mckenzie DO have personally reviewed and interpreted this examination/study. > Interpreting Provider: Shane Mckenzie DO on 01/01/2023 12:35 PM Ck Small MD DIAGNOSTIC IMAG ING ORDERABLES documented in this encounter Visit Diagnoses Diagnosis Chronic respiratory failure with hypoxia (HCC)- Primary Chronic respiratory failure Chronic respiratory failure with hypoxia (HCC) Chronic respiratory failure Status epilepticus (HCC) Epileptic grand mal status Tracheostomy in place (HCC) Tracheostomy status PEG (percutaneous endoscopic gastrostomy) status (HCC) Acute encephalopathy Encephalopathy, unspecified Hypoxia Hypoxemia Acute respiratory failure with hypoxia (HCC) Acute respiratory failure Status epilepticus (CMS/HCC) Epileptic grand mal status History of CVA (cerebrovascular accident) Transient ischemic attack (TIA), and cerebral infarction without residual deficits PEG (percutaneous endoscopic gastrostomy) status (HCC) Seizure disorder (HCC) Unspecified epilepsy without mention of intractable epilepsy Dementia, vascular (HCC) Vascular dementia, uncomplicated Hyperlipidemia Other and unspecified hyperlipidemia Tracheostomy in place (HCC) Tracheostomy status Anemia of chronic disease Acute encephalopathy Encephalopathy, unspecified documented in this encounter Administered Medications Inactive Administered Medications - up to 3 most recent administrations Medication Order MAR Action Action Date Dose Rate Site 0.9% NaCl injection 1-10 mL 1-10 mL, Intracatheter, PRN, Other, peripheral line flush, Starting on Tue12/31/22 at 1946, Until 01/15/23 at 0056, Flush peripheral IV catheter with 1-10 mL of normal saline before and after medications and prn to clear blood from the line or to verify patency. 0.9% NaCl injection 3 mL 3 mL, Intracatheter, EVERY 8 HOURS, First dose on Tue12/31/22 at 2200, Until Discontinued, Flush peripheral IV catheter with 3 mL of normal saline every 8 hours. $ Given 01/14/2023 8:40 PM CDT 3 mL $ Given 01/14/2023 2:44 PM CDT 3 mL $ Given 01/14/2023 6:11 AM CDT 3 mL acetaminophen (Tylenol) tablet 650 mg 650 mg, Enteral Tube, EVERY 6 HOURS PRN, Mild Pain, Moderate Pain, Starting on Tue01/10/23 at 1414, Until Tue01/15/23 at 0056, Patient preference for lesser PRN pain meds may be honored when the patient requests a less strong medication, a lower dose, or a less intrusive route of administration when the lesser drug, dose and route have been ordered for the patient. This patient request must be documented in the MAR. $ Given 01/10/2023 6:11 PM CDT 650 mg G Tube artificial tears ophthalmic ointment Each Eye, EVERY 8 HOURS, First dose on Tue12/31/22 at 2200, Until Discontinued $ Given 01/13/2023 2:13 PM CDT $ Given 01/13/2023 5:23 AM CDT $ Given 01/12/2023 9:16 PM CDT aspirin chew tablet 81 mg 81 mg, Enteral Tube, DAILY, First dose on Tue01/02/23 at 0915, Until Discontinued $ Given 01/14/2023 9:20 AM CDT 81 mg G Tub e $ Given 01/13/2023 7:59 AM CDT 81 mg G Tube $ Given 01/12/2023 8:16 AM CDT 81 mg G Tube chlorhexidine (Peridex) 0.12 % oral solution 15 mL 15 mL, Mouth/Throat, 2 TIMES DAILY, First dose on Tue12/31/22 at 2100, Until Discontinued, Swab oral mucosa for 30 seconds. Do not brush teeth immediately after use. . WASTE DISPOSAL INSTRUCTIONS: Black Bin Disposal required. $ Given 01/14/2023 8:40 PM CDT 15 mL $ Given 01/14/2023 9:20 AM CDT 15 mL $ Given 01/13/2023 8:49 PM CDT 15 mL cloBAZam (Onfi) tablet 20 mg 20 mg, Enteral Tube, 2 TIMES DAILY, First dose on Tue01/01/23 at 0045, Until Discontinued $ Given 01/01/2023 8:13 AM CDT 20 mg J Tub e $ Given 01/01/2023 12:47 AM CDT 20 mg J Tube cloBAZam (Onfi) tablet 20 mg 20 mg, Enteral Tube, Once, 1 dose, On 01/01/23 at 1115 $ Given 01/01/2023 11:44 AM CDT 20 mg J Tube cloBAZam (Onfi) tablet 20 mg 20 mg, Enteral Tube, 2 TIMES DAILY, First dose (after last modification) on Tue01/02/23 at 2100, Until Discontinued $ Given 01/14/2023 8:39 PM CDT 20 mg G Tub e $ Given 01/14/2023 9:20 AM CDT 20 mg G Tube $ Given 01/13/2023 8:50 PM CDT 20 mg G Tube cloBAZam (Onfi) tablet 40 mg 40 mg, Enteral Tube, 3 TIMES DAILY, First dose (after last modification) on 01/01/23 at 1400, Until Discontinued $ Given 01/02/2023 8:04 AM CDT 40 mg J Tube $ Given 01/01/2023 8:25 PM CDT 40 mg G Tube $ Given 01/01/2023 2:42 PM CDT 40 mg J Tube enoxaparin (Lovenox) injection 40 mg 40 mg, Subcutaneous, DAILY, First dose on 01/01/23 at 0900, Until Discontinued, (for prefilled syringes) do not expel air bubble from the syringe prior to the injection Remind Patient to not rub injection site. Could cause hematoma. $ Given 01/14/2023 9:19 AM CDT 40 mg Abd Left Upper Quadr ant $ Given 01/13/2023 7:59 AM CDT 40 mg Ab dominal Tissue $ Given 01/12/2023 8:16 AM CDT 40 mg Ri ght Arm guaiFENesin (Robitussin) solution 10 mL 10 mL, Enteral Tube, EVERY 6 HOURS, First dose (after last modification) on Tue01/11/23 at 2000, Until Discontinued $ Given 01/14/2023 6:37 PM CDT 10 m L G Tube $ Given 01/14/2023 12:14 PM CDT 10 mL J Tube $ Given 01/14/2023 6:12 AM CDT 10 mL G Tube iopamidol (Isovue 300) 61 % contrast 30 mL 30 mL, Tube, CONTRAST ONCE, Starting on Tue12/31/22 at 2036, Until Tue01/02/23 at 2035, 30 mL of iopamidol 61% (Isovue 300) mixed in 700mL of water.??Initial 500mL to be drank when CT staff states, and the last 200mL to be drank when transport arrives. $ Given - Contrast 12/31/2022 8:38 PM CDT 30 mL J Tube iron sucrose (Venofer) injection 200 mg 200 mg, Intravenous, EVERY 24 HOURS, 5 doses, First dose on Tue01/02/23 at 0915, Last dose on Tue01/06/23 at 1200, May administer up to 200 mg of undiluted solution IVP slowly over 5 minutes $ Given 01/04/2023 8:30 AM CDT 200 mg $ Given 01/03/2023 9:30 AM CDT 200 mg $ Given 01/02/2023 9:56 AM CDT 200 mg lacosamide (Vimpat) tablet 200 mg 200 mg, Enteral Tube, 2 TIMES DAILY, First dose on 01/01/23 at 0045, Until Discontinued $ Given 01/14/2023 8:39 PM CDT 200 mg G Tube $ Given 01/14/2023 9:20 AM CDT 200 mg G Tube $ Given 01/13/2023 8:51 PM CDT 200 mg G Tube lactated ringers IV bolus 500 mL, at 967.74 mL/hr, Administer over 31 Minutes, ONCE, 1 dose, On Tue01/01/23 at 1215 $ New Bag/Syringe 01/01/2023 12:10 PM CDT 500 mL 967.74 mL/hr lactated ringers IV bolus 500 mL, at 967.74 mL/hr, Administer over 31 Minutes, ONCE, 1 dose, On Tue01/14/23 at 1215 $ New Bag/Syringe 01/14/2023 12:18 PM CDT 500 mL 967.74 mL/hr lactated ringers IV bolus 500 mL, at 967.74 mL/hr, Administer over 31 Minutes, ONCE, 1 dose, On Tue01/14/23 at 1600 $ New Bag/Syringe 01/14/2023 3:52 PM CDT 500 mL 967.74 mL/hr lactated ringers IV bolus 500 mL, at 967.74 mL/hr, Administer over 31 Minutes, ONCE, 1 dose, On Tue01/14/23 at 1730 Rate Change 01/14/2023 6:20 PM CDT 5 mL/hr Restarted 01/14/2023 6:18 PM CDT 967.74 mL/hr $ New Bag/Syringe 01/14/2023 5:41 PM CDT 500 mL 967.74 mL/hr levETIRAcetam (Keppra) tablet 2,000 mg 2,000 mg, Enteral Tube, 2 TIMES DAILY, First dose on Tue01/01/23 at 0045, Until Discontinued, Do not crush or chew because of TASTE only. $ Given 01/14/2023 8:39 PM CDT 2,000 m g G Tube $ Given 01/14/2023 9:19 AM CDT 2,000 mg G Tube $ Given 01/13/2023 8:50 PM CDT 2,000 mg G Tube LORazepam (Ativan) injection 1 mg 1 mg, Intravenous, ONCE, 1 dose, On Tue12/31/22 at 2015 $ Given 12/31/2022 10:17 PM CDT 1 mg metoprolol tartrate IR (Lopressor) tablet 25 mg 25 mg, Enteral Tube, 2 TIMES DAILY, First dose on Tue01/06/23 at 1345, Until Discontinued $ Given 01/14/2023 8:39 PM CDT 25 mg G Tube $ Given 01/14/2023 9:20 AM CDT 25 mg G Tube $ Given 01/13/2023 8:50 PM CDT 25 mg G Tube norepinephrine (Levophed) 8 mg/250 ml D5 infusion premix 0-0.4 mcg/kg/min ? 59.6 kg (0-44.7 mL/hr), Intravenous, CONTINUOUS, Starting on Tue01/01/23 at 1145, Until Tue01/04/23 at 0918, Central line required if infused longer than 48 hours or infusing multiple vasopressors, Titration Parameters: Standard Parameters, Indication: Hypotension, Initiate infusion at: 0.05 mcg/kg/min, Titrate infusion by: If current rate 0.01 to 0.1 mcg/kg/min, titrate by 0.01 mcg/kg/min. If current rate 0.11 to 0.3 mcg/kg/min, titrate by 0.02 mcg/kg/min. If current rate 0.31 mcg/kg/min to the max ordered dose, titrate by 0.05 mcg/kg/min., Titrate every: 1 minute, To maintain a: MAP greater than or equal to 65 mmHg, Notify physician if: MAP less than 65 mmHg despite max dose Current Rate 01/02/2023 5:52 PM CDT 0.02 mcg/kg/min 2.24 mL/hr Rate Change 01/02/2023 12:59 PM CDT 0.02 mcg/kg/min 2.24 m L/hr Rate Change 01/02/2023 12:16 PM CDT 0.04 mcg/kg/min 4.47 m L/hr oxyCODONE (immediate release) (Roxicodone) tablet 5 mg 5 mg, Enteral Tube, Once, 1 dose, On Tue01/07/23 at 1215, Patient preference for lesser PRN pain meds may be honored when the patient requests a less strong medication, a lower dose, or a less intrusive route of administration when the lesser drug, dose and route have been ordered for the patient. This patient request must be documented in the MAR. $ Given 01/07/2023 12:18 PM CDT 5 mg OG T ube oxyCODONE (immediate release) (Roxicodone) tablet 5 mg 5 mg, Oral, Once, 1 dose, On 01/08/23 at 2015, Patient preference for lesser PRN pain meds may be honored when the patient requests a less strong medication, a lower dose, or a less intrusive route of administration when the lesser drug, dose and route have been ordered for the patient. This patient request must be documented in the MAR. $ Given 01/08/2023 8:12 PM CDT 5 mg pantoprazole (Protonix) injection 40 mg 40 mg, Intravenous, DAILY, First dose on 01/01/23 at 0900, Until Discontinued, For every 40 mg of pantoprazole mix with 10 mL Normal Saline (final concentration = 4 mg/mL). Inject SLOWLY over 2 min. $ Given 01/14/2023 9:19 AM CDT 40 mg $ Given 01/13/2023 8:00 AM CDT 40 mg $ Given 01/12/2023 8:16 AM CDT 40 mg polyethylene glycol 3350 (Miralax) packet 17 g 17 g, Oral, DAILY PRN, Constipation, Starting on Tue01/10/23 at 1419, Until 01/15/23 at 0056, Mix in 8 ounces of water, juice, soda, coffee or tea prior to administration $ Given 01/14/2023 8:41 PM CDT 17 g $ Given 01/13/2023 8:51 PM CDT 17 g potassium - sodium phosphates (Phos-Nak) powder 1 packet 1 packet, Enteral Tube, 3 TIMES DAILY WITH MEALS, 3 doses, First dose on Tue01/11/23 at 0830, Last dose on Tue01/11/23 at 1800, Mix contents of packet in 6 to 8 ounces of water and drink, may taste better if cold Contains Phos 8 mmol, K+ 7 mEq, Na 7 mEq per packet $ Given 01/11/2023 5:50 PM CDT 1 packet G Tube $ Given 01/11/2023 12:06 PM CDT 1 packet G Tube $ Given 01/11/2023 8:32 AM CDT 1 packet G Tube potassium - sodium phosphates (Phos-Nak) powder 1 packet 1 packet, Enteral Tube, 3 TIMES DAILY WITH MEALS, 1 dose, First dose (after last modification) on Tue01/12/23 at 0800, Mix contents of packet in 6 to 8 ounces of water and drink, may taste better if cold Contains Phos 8 mmol, K+ 7 mEq, Na 7 mEq per packet $ Given 01/12/2023 8:16 AM CDT 1 packet G T ube potassium - sodium phosphates (Phos-Nak) powder 1 packet 1 packet, Enteral Tube, 3 TIMES DAILY WITH MEALS, 3 doses, First dose on Tue01/14/23 at 0800, Last dose on Tue01/14/23 at 1800, Mix contents of packet in 6 to 8 ounces of water and drink, may taste better if cold Contains Phos 8 mmol, K+ 7 mEq, Na 7 mEq per packet $ Given 01/14/2023 6:37 PM CDT 1 packet G Tube $ Given 01/14/2023 12:15 PM CDT 1 packet J Tube $ Given 01/14/2023 9:19 AM CDT 1 packet G Tube potassium chloride (Klor-Con) packet 20 mEq 20 mEq, Enteral Tube, ONCE, 1 dose, On Tue01/11/23 at 1200, DISSOLVE IN 120 ML OF COLD WATER OR JUICE AND DRINK SLOWLY $ Given 01/11/2023 12:06 PM CDT 20 mEq G Tube propofol (Diprivan) infusion 0-50 mcg/kg/min ? 59.6 kg (0-17.88 mL/hr), Intravenous, CONTINUOUS, Starting on Tue12/31/22 at 2115, Until 01/01/23 at 1115, Above RASS goal: Assess and treat pain first if CPOT greater than 2. If agitation persists increase rate per order. At RASS goal and no change in 4 hours: Decrease rate per order. Below RASS goal (unarousable): Hold infusion until at goal RASS then restart at 50% previous rate. If significant hemodynamic changes notify physician for instructions. Notify physician for inability to reach goals despite maximal dosage. Note: The CPOT goal should be achieved first with the use of the ordered analgesic medication prior to targeting RASS goal with the sedative. Vial and Tubing should be changed and/or discarded every 12 hours., Titration Parameters: Standard Parameters, Indication: Sedation, Initiate infusion at: 5 mcg/kg/min, Titrate infusion by: 5 mcg/kg/min, Titrate every: 2 minutes, Notify physician if: Unachievable RASS goal despite max dose, Titration Priority: 1st Rate Change 01/01/2023 11:30 AM CDT 40 mcg/kg/min 14.42 mL/hr Rate Change 01/01/2023 11:16 AM CDT 30 mcg/kg/min 10.82 mL /hr Current Rate 01/01/2023 10:08 AM CDT 20 mcg/kg/min 7.21 mL /hr propofol (Diprivan) infusion 40 mcg/kg/min ? 59.6 kg (14.304 mL/hr, rounded to 14.3 mL/hr), Intravenous, CONTINUOUS, Starting on 01/01/23 at 1130, Until 01/03/23 at 1042, Above RASS goal: Assess and treat pain first if CPOT greater than 2. If agitation persists increase rate per order. At RASS goal and no change in 4 hours: Decrease rate per order. Below RASS goal (unarousable): Hold infusion until at goal RASS then restart at 50% previous rate. If significant hemodynamic changes notify physician for instructions. Notify physician for inability to reach goals despite maximal dosage. Note: The CPOT goal should be achieved first with the use of the ordered analgesic medication prior to targeting RASS goal with the sedative. Vial and Tubing should be changed and/or discarded every 12 hours., Titration Parameters: Fixed Dose, Indication: Sedation, Initiate infusion at: Custom rate in mcg/kg/min - see comments, Titrate to: Do not titrate. Physician order required for rate change., Notify physician if: Unachievable RASS goal despite max dose Restarted 01/03/2023 8:55 AM CDT 40 mcg/kg/min 14.3 mL/hr $ New Bag/Syringe 01/03/2023 7:11 AM CDT 40 mcg/kg/min 14 .3 mL/hr $ New Bag/Syringe 01/03/2023 1:12 AM CDT 40 mcg/kg/min 14. 3 mL/hr propofol (Diprivan) infusion 0-50 mcg/kg/min ? 59.6 kg (0-17.88 mL/hr), Intravenous, CONTINUOUS, Starting on 01/03/23 at 1045, Until Tue01/07/23 at 0958, Above RASS goal: Assess and treat pain first if CPOT greater than 2. If agitation persists increase rate per order. At RASS goal and no change in 4 hours: Decrease rate per order. Below RASS goal (unarousable): Hold infusion until at goal RASS then restart at 50% previous rate. If significant hemodynamic changes notify physician for instructions. Notify physician for inability to reach goals despite maximal dosage. Note: The CPOT goal should be achieved first with the use of the ordered analgesic medication prior to targeting RASS goal with the sedative. Vial and Tubing should be changed and/or discarded every 12 hours., Titration Parameters: Standard Parameters, Indication: Sedation, Initiate infusion at: 5 mcg/kg/min, Titrate infusion by: 5 mcg/kg/min, Titrate every: 2 minutes, Notify physician if: Unachievable RASS goal despite max dose, Titration Priority: 3rd Current Rate 01/04/2023 9:00 AM CDT 10 mcg/kg/min 3.58 mL/hr Current Rate 01/04/2023 8:00 AM CDT 10 mcg/kg/min 3.58 mL/ hr Current Rate 01/04/2023 7:00 AM CDT 10 mcg/kg/min 3.58 mL/ hr senna-docusate (Senokot-S) tablet 1 tablet 1 tablet, Oral, DAILY PRN, Constipation, Starting on 01/10/23 at 1419, Until 01/15/23 at 0056 $ Given 01/14/2023 8:39 PM CDT 1 tablet $ Given 01/13/2023 8:51 PM CDT 1 tablet sodium - potassium phosphates (K Phos Neutral) tablet 1 tablet 1 tablet, Enteral Tube, 3 TIMES DAILY, 3 doses, First dose (after last modification) on Tue01/09/23 at 1100, Last dose on Tue01/09/23 at 2100, Contains Phos 8 mmol, K+ 1.1 mEq, Na 13 mEq per tablet $ Given 01/09/2023 8:09 PM CDT 1 tablet G Tube $ Given 01/09/2023 4:30 PM CDT 1 tablet OG Tube $ Given 01/09/2023 11:47 AM CDT 1 tablet G Tube sodium - potassium phosphates (K Phos Neutral) tablet 1 tablet 1 tablet, Enteral Tube, 2 TIMES DAILY, 2 doses, First dose on Tue01/13/23 at 1145, Last dose on Tue01/13/23 at 2100, Contains Phos 8 mmol, K+ 1.1 mEq, Na 13 mEq per tablet $ Given 01/13/2023 8:51 PM CDT 1 tablet G Tub e $ Given 01/13/2023 11:24 AM CDT 1 tablet O G Tube sodium - potassium phosphates (K Phos Neutral) tablet 2 tablet 2 tablet, Enteral Tube, ONCE, 1 dose, On Tue01/05/23 at 0700, Contains Phos 8 mmol, K+ 1.1 mEq, Na 13 mEq per tablet $ Given 01/05/2023 7:54 AM CDT 2 tablets G Tube sodium - potassium phosphates (K Phos Neutral) tablet 2 tablet 2 tablet, Enteral Tube, EVERY 4 HOURS, 3 doses, First dose on Tue01/06/23 at 0800, Last dose on Tue01/06/23 at 1600, Contains Phos 8 mmol, K+ 1.1 mEq, Na 13 mEq per tablet $ Given 01/06/2023 5:05 PM CDT 2 tablets G Tub e $ Given 01/06/2023 12:28 PM CDT 2 tablets G Tube $ Given 01/06/2023 8:29 AM CDT 2 tablets G Tube sodium - potassium phosphates (K Phos Neutral) tablet 2 tablet 2 tablet, Enteral Tube, EVERY 4 HOURS, 3 doses, First dose (after last reorder) on Tue01/07/23 at 0800, Last dose on Tue01/07/23 at 1600, Contains Phos 8 mmol, K+ 1.1 mEq, Na 13 mEq per tablet $ Given 01/07/2023 4:30 PM CDT 2 tablets G Tube $ Given 01/07/2023 11:35 AM CDT 2 tablets G Tube $ Given 01/07/2023 7:43 AM CDT 2 tablets G Tube triamcinolone acetonide (Kenalog) 0.025 % ointment Topical, 3 TIMES DAILY, First dose on Tue01/09/23 at 1300, Until Discontinued, Apply to facial areas with rash $ Given 01/14/2023 8:40 PM CDT $ Given 01/14/2023 2:44 PM CDT $ Given 01/14/2023 9:21 AM CDT valproic acid (Depakene) solution 500 mg 500 mg, Enteral Tube, FOUR TIMES DAILY, First dose (after last modification) on Tue01/06/23 at 1600, Until Discontinued $ Given 01/14/2023 8:40 PM CDT 500 mg G Tube $ Given 01/14/2023 3:49 PM CDT 500 mg G Tube $ Given 01/14/2023 12:15 PM CDT 500 mg J Tube valproic acid (Depakene) solution 750 mg 750 mg, Enteral Tube, 2 TIMES DAILY, First dose on 01/01/23 at 0100, Until Discontinued $ Given 01/06/2023 8:28 AM CDT 750 mg G Tube $ Given 01/05/2023 9:46 PM CDT 750 mg G Tube $ Given 01/05/2023 9:12 AM CDT 750 mg G Tube documented in this encounter Active and Recently Administered Medications Times are shown in CDT. Scheduled Medication Order 01/12/2023 01/13/2023 01/14/2023 0.9% NaCl injection 3 mL(Linked Group 1) 3 mL, Intracatheter, EVERY 8 HOURS, First dose on Tue12/31/22 at 2200, Until Discontinued, Flush peripheral IV catheter with 3 mL of normal saline every 8 hours. 0630 ($ Given - Provider: J Carlos Ann RN)1348 ($ Given - Provider: Elton Rodriguez RN)211 ($ Given - Provider: Isamar Sheehan RN) 0523 ($ Given - Provider: Isamar Sheehan RN)1413 ($ Given - Provider: Elton Rodriguez RN)204 ($ Given - Provider: Dina Gardner RN) 0611 ($ Given - Provider: Dina Gardner RN)1444 ($ Given - Provider: Nas Posada RN)2039 ($ Given - Provider: Dina Gardner RN) artificial tears ophthalmic ointment Each Eye, EVERY 8 HOURS, First dose on Tue12/31/22 at 2200, Until Discontinued 0630 ($ Given - Provider: J Carlos Ann RN)1348 (Not Administered - Provider: Elton Rodriguez RN - Reason: Patient Condition)211 ($ Given - Provider: Isamar Sheehan RN) 0523 ($ Given - Provider: Isamar Sheehan RN)1413 ($ Given - Provider: Elton Rodriguez RN)2048 (Not Administered - Provider: Dina Gardner RN - Reason: Refused-Patient) 0612 (Not Administered - Provider: Dina Gardner RN - Reason: Refused-Patient)144 (Not Administered - Provider: Nas Posada RN - Reason: Patient Condition)2039 (Not Administered - Provider: Dina Gardner RN - Reason: Refused-Patient) aspirin chew tablet 81 mg 81 mg, Enteral Tube, DAILY, First dose on Tue01/02/23 at 0915, Until Discontinued 0816 ($ Given - Provider: Elton Rodriguez RN) 0759 ($ Given - Provider: Elton Rodriguez RN) 0920 ($ Given - Provider: Nas Posada RN) chlorhexidine (Peridex) 0.12 % oral solution 15 mL 15 mL, Mouth/Throat, 2 TIMES DAILY, First dose on Tue12/31/22 at 2100, Until Discontinued, Swab oral mucosa for 30 seconds. Do not brush teeth immediately after use. . WASTE DISPOSAL INSTRUCTIONS: Black Bin Disposal required. 0815 ($ Given - Provider: Elton Rodriguez RN)2114 ($ Given - Provider: Isamar Sheehan, ALFRED) 0800 ($ Given - Provider: Elton Rodriguez, ALFRED)2048 ($ Given - Provider: Dina Gardner RN) 09 ($ Given - Provider: Nas Posada RN)2039 ($ Given - Provider: Dina Gardner RN) cloBAZam (Onfi) tablet 20 mg 20 mg, Enteral Tube, 2 TIMES DAILY, First dose (after last modification) on Tue01/02/23 at 2100, Until Discontinued 814 ($ Given - Provider: Elton Rodriguez RN)2114 ($ Given - Provider: Isamar Sheehan RN) 075 ($ Given - Provider: Elton Rodriguez RN)2049 ($ Given - Provider: Dina Gardner RN) 09 ($ Given - Provider: Nas Posada, ALFRED)2038 ($ Given - Provider: Dina Gardner RN) enoxaparin (Lovenox) injection 40 mg 40 mg, Subcutaneous, DAILY, First dose on Tue01/01/23 at 0900, Until Discontinued, (for prefilled syringes) do not expel air bubble from the syringe prior to the injection Remind Patient to not rub injection site. Could cause hematoma. 0816 ($ Given - Provider: Elton Rodriguez RN) 075 ($ Given - Provider: Elton Rodriguez RN) 0919 ($ Given - Provider: Nas Posada, ALFRED) guaiFENesin (Robitussin) solution 10 mL 10 mL, Enteral Tube, EVERY 6 HOURS, First dose (after last modification) on Tue01/11/23 at 2000, Until Discontinued 0629 ($ Given - Provider: J Carlos Ann RN)1206 ($ Given - Provider: Elton Rodriguez RN)1848 ($ Given - Provider: Tamie Rodriguez RN) 0048 ($ Given - Provider: Isamar K Sissy, RN)0523 ($ Given - Provider: Isamar Sheehan RN)1124 ($ Given - Provider: Elton Rodriguez, ALFRED)1725 ($ Given - Provider: Elton Rodriguez RN) 0015 ($ Given - Provider: Dina Gardner RN)0612 ($ Given - Provider: Dina Gardner RN)1214 ($ Given - Provider: Nas Posada, RN)1837 ($ Given - Provider: Nas Posada RN) lacosamide (Vimpat) tablet 200 mg 200 mg, Enteral Tube, 2 TIMES DAILY, First dose on Tue01/01/23 at 0045, Until Discontinued 0816 ($ Given - Provider: Elton Rodriguez RN)2116 ($ Given - Provider: Isamar Sheehan RN) 0759 ($ Given - Provider: Elton Rodriguez RN)205 ($ Given - Provider: Dina Gardner RN) 0920 ($ Given - Provider: Nas Posada, ALFRED)203 ($ Given - Provider: Dina Gardner RN) lactated ringers IV bolus (COMPLETED) 500 mL, at 967.74 mL/hr, Administer over 31 Minutes, ONCE, 1 dose, On Tue01/14/23 at 1215 1218 ($ New Bag/Syringe - Provider: Nas Posada RN)1256 (Stopped - Provider: Nas Posada, ALFRED) lactated ringers IV bolus (COMPLETED) 500 mL, at 967.74 mL/hr, Administer over 31 Minutes, ONCE, 1 dose, On Tue01/14/23 at 1600 1552 ($ New Bag/Syringe - Provider: Nas Posada, ALFRED)1630 (Stopped - Provider: Nas Posada, RN) lactated ringers IV bolus (COMPLETED) 500 mL, at 967.74 mL/hr, Administer over 31 Minutes, ONCE, 1 dose, On Tue01/14/23 at 1730 1741 ($ New Bag/Syringe - Provider: Nas Posada, ALFRED)1811 (Paused - Provider: Dina Gardner RN)1818 (Restarted - Provider: Dina Gardner RN)1820 (Rate Change - Provider: Dina Gardner RN)1820 (Stopped - Provider: Dina Gardner RN)183 (Stopped - Provider: Nas Posada, RN) levETIRAcetam (Keppra) tablet 2,000 mg 2,000 mg, Enteral Tube, 2 TIMES DAILY, First dose on 01/01/23 at 0045, Until Discontinued, Do not crush or chew because of TASTE only. 0816 ($ Given - Provider: Elton Rodriguez RN)2115 ($ Given - Provider: Isamar Sheehan RN) 075 ($ Given - Provider: Elton Rodriguez, ALFRED)2049 ($ Given - Provider: Dina Gardner RN) 09 ($ Given - Provider: Nas Posada, ALFRED)2038 ($ Given - Provider: Dina Gardner RN) metoprolol tartrate IR (Lopressor) tablet 25 mg 25 mg, Enteral Tube, 2 TIMES DAILY, First dose on Tue01/06/23 at 1345, Until Discontinued 0816 ($ Given - Provider: Elton Rodriguez RN)2114 ($ Given - Provider: Isamar Sheehan RN) 0800 ($ Given - Provider: Elton Rodriguez, ALFRED)2049 ($ Given - Provider: Dina Gardner RN) 0920 ($ Given - Provider: Nas Posada, ALFRED)2038 ($ Given - Provider: Dina Gardner RN) pantoprazole (Protonix) injection 40 mg 40 mg, Intravenous, DAILY, First dose on 01/01/23 at 0900, Until Discontinued, For every 40 mg of pantoprazole mix with 10 mL Normal Saline (final concentration = 4 mg/mL). Inject SLOWLY over 2 min. 0816 ($ Given - Provider: Elton Rodriguez RN) 0800 ($ Given - Provider: Elton Rodriguez, ALFRED) 0919 ($ Given - Provider: Nas Posada, ALFRED) potassium - sodium phosphates (Phos-Nak) powder 1 packet (COMPLETED) 1 packet, Enteral Tube, 3 TIMES DAILY WITH MEALS, 1 dose, First dose (after last modification) on Tue01/12/23 at 0800, Mix contents of packet in 6 to 8 ounces of water and drink, may taste better if cold Contains Phos 8 mmol, K+ 7 mEq, Na 7 mEq per packet 0816 ($ Given - Provider: Elton Rodriguez RN) potassium - sodium phosphates (Phos-Nak) powder 1 packet (COMPLETED) 1 packet, Enteral Tube, 3 TIMES DAILY WITH MEALS, 3 doses, First dose on Tue01/14/23 at 0800, Last dose on Tue01/14/23 at 1800, Mix contents of packet in 6 to 8 ounces of water and drink, may taste better if cold Contains Phos 8 mmol, K+ 7 mEq, Na 7 mEq per packet 0919 ($ Given - Provider: Nas Posada RN)1215 ($ Given - Provider: Nas Posada, RN)1837 ($ Given - Provider: Nas Posada RN) sodium - potassium phosphates (K Phos Neutral) tablet 1 tablet (COMPLETED) 1 tablet, Enteral Tube, 2 TIMES DAILY, 2 doses, First dose on Tue01/13/23 at 1145, Last dose on Tue01/13/23 at 2100, Contains Phos 8 mmol, K+ 1.1 mEq, Na 13 mEq per tablet 1124 ($ Given - Provider: Elton Rodriguez RN)2050 ($ Given - Provider: Dina Gardner, ALRFED) triamcinolone acetonide (Kenalog) 0.025 % ointment Topical, 3 TIMES DAILY, First dose on Tue01/09/23 at 1300, Until Discontinued, Apply to facial areas with rash 0817 ($ Given - Provider: Elton Rodriguez RN)1348 ($ Given - Provider: Elton Rodriguez RN)2117 ($ Given - Provider: Isamar Sheehan RN) 0815 ($ Given - Provider: Elton Rodriguez, ALFRED)1445 ($ Given - Provider: Elton Rodriguez, ALFRED)205 ($ Given - Provider: Dina Gardner, ALFRED) 0921 ($ Given - Provider: Nas Posada, LAFRED)144 ($ Given - Provider: Nas Posada, ALFRED)2039 ($ Given - Provider: Dina Gardner, ALFRED) valproic acid (Depakene) solution 500 mg 500 mg, Enteral Tube, FOUR TIMES DAILY, First dose (after last modification) on 01/06/23 at 1600, Until Discontinued 0815 ($ Given - Provider: Elton Rodriguez RN)1206 ($ Given - Provider: Elton Rodriguez RN)1558 ($ Given - Provider: Elton Rodriguez, ALFRED)2115 ($ Given - Provider: Isamar Sheehan RN) 0759 ($ Given - Provider: Elton Rodriguez, ALFRED)1124 ($ Given - Provider: Elton Rodriguez RN)1616 ($ Given - Provider: Elton Rodriguez RN)205 ($ Given - Provider: Dina Gardner RN) 0920 ($ Given - Provider: Nas Posada, ALFRED)1215 ($ Given - Provider: Nas Posada RN)1549 ($ Given - Provider: Nas Posada RN)2039 ($ Given - Provider: Dina Gardner RN) PRN Medication Order 01/12/2023 01/13/2023 01/14/2023 0.9% NaCl injection 1-10 mL(Linked Group 1) 1-10 mL, Intracatheter, PRN, Other, peripheral line flush, Starting on Tue12/31/22 at 1946, Until 01/15/23 at 0056, Flush peripheral IV catheter with 1-10 mL of normal saline before and after medications and prn to clear blood from the line or to verify patency. acetaminophen (Tylenol) tablet 650 mg 650 mg, Enteral Tube, EVERY 6 HOURS PRN, Mild Pain, Moderate Pain, Starting on Tue01/10/23 at 1414, Until 01/15/23 at 0056, Patient preference for lesser PRN pain meds may be honored when the patient requests a less strong medication, a lower dose, or a less intrusive route of administration when the lesser drug, dose and route have been ordered for the patient. This patient request must be documented in the MAR. polyethylene glycol 3350 (Miralax) packet 17 g 17 g, Oral, DAILY PRN, Constipation, Starting on Tue01/10/23 at 1419, Until 01/15/23 at 0056, Mix in 8 ounces of water, juice, soda, coffee or tea prior to administration 2050 ($ Given - Provider: Dina Gardner, RN) 2040 ($ Given - Provider: Dina Gardner, RN) senna-docusate (Senokot-S) tablet 1 tablet 1 tablet, Oral, DAILY PRN, Constipation, Starting on 01/10/23 at 1419, Until 01/15/23 at 0056 2050 ($ Given - Provider: Dina Gardner, RN) 2038 ($ Given - Provider: Dina Gardner RN) Linked Groups Order Group 1: SALINE LOCK, INSERT AND MAINTAIN (CANCELED) Routine, CONTINUOUS, Starting on Tue12/31/22 at 2000, Until Specified, New collection And 0.9% NaCl injection 3 mLJump to med 3 mL, Intracatheter, EVERY 8 HOURS, First dose on Tue12/31/22 at 2200, Until Discontinued, Flush peripheral IV catheter with 3 mL of normal saline every 8 hours. And 0.9% NaCl injection 1-10 mLJump to med 1-10 mL, Intracatheter, PRN, Other, peripheral line flush, Starting on Tue12/31/22 at 1946, Until 01/15/23 at 0056, Flush peripheral IV catheter with 1-10 mL of normal saline before and after medications and prn to clear blood from the line or to verify patency. 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
--- OUTSIDE RECORDS SUMMARY | 2024-06-08 05:31 | XMS_ITS | Encounter Summary ---
Author Organization [facility] Health Address [address] [place] [address] Care Team Providers Care Epic Cadence Analyst Name Role Phone Elizabeth Sullivan RN Unavailable [phone] Joyce Luevano STICK FEEDER-RECEIVING ROOM CLERK Primary Care Provider [phone] Encounter Details Date Type Department Care Team (Late st Contact Info) Description 12/31/2022 Orders Only [facility] [address] [place] [phone] Howie Blake MD [address] [place] [address] Social History Tobacco Use Types Packs/Day Years [...] and heating? Not hard at all 11/28/2022 [facility] [place] of Occupat ional Health - Occupational Stress [...] slept in a prison (including now)? 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
--- OUTSIDE RECORDS SUMMARY | 2024-06-08 05:31 | XMS_ITS | Encounter Summary ---
Author Organization [facility] Health Address [address] [facility] [place] [address] Care Team Providers Care Instructional Media Services Technician Name Role Phone Elizabeth Sullivan RN Unavailable [phone] Joyce Luevano ACCORDION TUNER-WATER RESOURCES ENGINEER Primary Care Provider [phone] Reason for Visit * Reason Onset Date Comments MEDICATION REFILL 02/13/2023 Encounter Details Date Type Department Care Team (Late st Contact Info) Description 02/13/2023 Refill [facility] - Neurology [address] [place] [phone] Yana Ramos APRN-CNP [address] [place] [address] MEDICATION REFILL Social History Tobacco Use Types Packs/Day Years [...] and heating? Not hard at all 11/28/2022 [facility] [place] of Occupat ional Health - Occupational Stress [...] in a group home (including now)? No 11/28/2022 Sex and [...] as of this encounter Miscellaneous Notes * Addendum Note - Yana Ramos APRN-CNP - 02/14/2023 8:52 AM CDTAddended by: YANA RAMOS on: 02/14/2023 08:52 AM Modules accepted: Orders * Telephone Encounter - Hanane Black - 02/14/2023 7:17 AM CDT Refill Request Bi Tabor KAMILLA: MAR due: NOV scheduled: LRF: 11/11/2022 Qty Disp: 60 # of refills: 5 Allergies: Allergies Allergen Reactions ??? Clonazepam Psychiatric hallucinations Pended Medication Order: Requested Prescriptions Pending Prescriptions Disp Refills ??? 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, not intractable, without status epilepticus (HCC) documented in this encounter Additional Health Concerns Infection Onset Date Last Indicated Resolved Time 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
--- OUTSIDE RECORDS SUMMARY | 2024-06-08 05:32 | XMS_ITS | Encounter Summary ---
Author Organization [facility] Health Address [address] [place] [address] Care Team Providers Care Laminate Floor Installer Name Role Phone Elizabeth Sullivan RN Unavailable [phone] Joyce Luevano COMMERCIAL INSTRUCTOR SUPERVISOR-PSYCHOLOGY CLINICIAN Primary Care Provider [phone] Reason for Visit * Auth/Cert (Routine) Specialty Diagnoses / Procedures Referred By Contac t Referred To Contact Referral ID Status Reason Start Date Expiration Date Visits Re quested Visits Authorized [id number] 1 1 Encounter Details Date Type Department Care Team (Late st Contact Info) Description 11/26/2022 11:18 AM CDT Anesthesia Event [facility] [address] [place] [address] Teri Trent MD [address] [place] [address] Charlie Perry Anes Asst [address] [facility] [place] [address] Anesthesia Record Procedure Summary Procedure Name Responsible Anesthesiologist Anesthesia Start Time Anesthesia Stop Time Bilateral Nasal Endoscopy, Right polypectomy, Right Maxillary Antrostomy, Rihjy Anterior Ethmoidectomy (Nose) Teri Trent MD 11/26/22 1118 06/30/23 1314 Events Date Time Event Comment 11/26/2022 0940 1118 An Start 1122 Pt In Room 1122 An Start Data 1131 PT Reassessment 1131 Induction 1153 Anes Ready 1203 Time Out Anesthesia part icipated in timeout at the time documented in the record by nursing 1204 Proc Start 1232 Quick Note VT, spontaneous ly resolved 1239 Proc Stop 1239 An Emergence 1241 Quick Note Due to CV event , will keep patient vented, bring to PACU 1300 Quick Note Waiting for icu bed 1307 an stop data 1309 Pt out of Room 1309 ANPTO2 1314 An Stop Meds Name Total fentaNYL 100 mcg/2ml injection 200 mcg propofol 200mg/20mL injection 50 mg rocuronium 50 mg/5 mL injection 50 mg phenylephrine 100 mcg/mL syringe 1.54 mg sugammadex 200 mg/2mL injection 200 mg esmolol 100 mg/10mL injection 20 mg propofol 500 mg/50 mL 42.55 mg magnesium sulfate 4 g in 100 mL bolus 4 g NS (0.9% NaCl) 0 mL NS (0.9% NaCl) 0 mL * Agents Name Insp. N2O Exp. Sevoflurane Exp. N2O O2 Flow - Auxiliary O2 Air Insp. Sevoflurane * Blood No blood administrations on file. Lines, Drains, and Airways Type Details Placement Removal Enteral - 03/25/22; 1654; Jolynn Ann MD; PEG; Abdomen, Midline, Upper; 24; Well; 12/14/22; 1556; Dr. Payton; Other (Comments) (conversion to gj) 03/25/22 1654 by Lila Nguyễn, ALFRED 12/14/22 1556 by Tiffani Moreno, ALFRED Peripheral IV Date: 11/24/22; Orientation: Left, Posterior 11/24/22 0000 by Mart Cuellar RN 11/27/22 2205 by Gonzalo Herman RN Trach Other (comments); 11/25/22 (previously placed); 0146 (previously placed); TTS; Water ([place]); 6.0 FR; 11/26/22; 2018; (Duplicate) 11/25/22 0146 by Saloni Mortensen RCP 11/26/222017 by Gonzalo Herman, RN Peripheral IV Date: 11/25/22; Time : 335; Orientation: Left 11/25/22 0336 by Mart Cuellar RN 11/29/22 1600 by Carmel Euceda RN Peripheral IV Date: 11/25/22; Time : 0400; Orientation: Anterior, Right 11/25/22 0400 by Mart Cuellar RN 11/26/22 1400 by Nas Vee Jr., RN Urethral Catheter 11/25/22 (present on admission); 2229; Yes, Seal Intact; 11/26/22; 1999; Per order; [place] 11/25/22 223 by Callie Hodgson RN 11/26/221999 by Gonzalo Herman RN Peripheral IV Date: 11/26/22; Time : 1224; Orientation: Left 11/26/22 1224 by Charlie Perry Anes Asssy 11/26/222012 by Gonzalo Herman RN Procedural Site (Incision) 11/26/22; 1256; Nose; NextFoam packing to Right nostril; 12/17/22; 0345 11/26/22 1256 by Sarah Bishop RN 12/17/22 0345 by Generic, Auto Release documented in this encounter Social History Tobacco Use Types Packs/Day Years [...] and heating? Not hard at all 11/28/2022 [facility] [place] [facility] Occupat ional Health - Occupational Stress [...] on file Sexual Orientation Not on file COVID-19 Exposure Response Date Recorded In the last 10 days, have yo u been in contact with someone who was confirmed or suspected to have Coronavirus/COVID-19? No / Unsure 11/12/2022 9:01 AM CDT documented as of this encounter Functional Status Functional Status Response Date of Assess ment Is person deaf or have serious hearing difficult y? No 08/29/2022 Is person blind or have serious difficulty seein g? No 08/29/2022 Does person have serious dif ficulty walking/climbing stairs? Yes 08/29/2022 Does person have difficulty dressing/bathing? Ye s 08/29/2022 Does person have difficulty doing errands alone? Yes 08/29/2022 Cognitive Status Response Date of Assessm ent Does person have difficulty concentrating/remembering/making decisions? Yes 08/29/2022 documented as of this encounter Progress Notes * Maricel Lindsay MD - 11/29/2022 9:48 AM CDT ANESTHESIA POSTOP EVALUATION NOTE Procedure: Bilateral Nasal Endoscopy, Right polypectomy, Right Maxillary Antrostomy, Rihjy AnteriorEthmoidectomy (Nose) Bi Tabor is a 62 year old male Patient Vitals for the past 6 hrs: BP Temp Pulse Resp SpO2 Pain Scale/Observation 11/29/22 0400 121/72 98.2 ??F (36.8 ??C) (!) 110 12 97 % CPOT 11/29/22 0419 -- -- (!) 112 -- 96 % -- 11/29/22 0500 140/79 -- (!) 114 14 96 % CPOT 11/29/22 0559 -- -- (!) 123 15 92 % -- 11/29/22 0600 122/89 -- (!) 122 15 90 % CPOT 11/29/22 0700 109/75 -- (!) 125 12 98 % -- 11/29/22 0800 118/80 (!) 100.4 ??F (38 ??C) (!) 123 12 97 % CPOT 11/29/22 0900 133/74 -- (!) 113 12 99 % -- 11/29/22 0945 -- -- (!) 116 -- 99 % -- Anesthesia Type: general Pre-op Diagnosis Codes: * Polyp of right nasal cavity [J33.0] Mental Status: other - please comment (intubated, sedated) Neuro Status: other - please comment (intubated, sedated) Respiratory Function: mechanical ventilation Cardiac Function: stable Postop Pain: other - please comment (intubated, sedated) Postop Hydration: adequate Postop Nausea: treated/stable (intubated, sedated) Assessment: other - please comment and no apparent anesthetic complications (intubated, sedated) Patient Disposition: Release from Anesthesia Care NOTABLE EVENTS: No notable events documented. Maricel Lindsay MD Anesthesiology & Critical Care PGY2 November 29, 2022 9:48 AM * Teri Trent MD - 11/26/2022 2:15 PM CDT ANESTHESIA POSTOP EVALUATION NOTE Procedure: Bilateral Nasal Endoscopy, Right polypectomy, Right Maxillary Antrostomy, Rihjy AnteriorEthmoidectomy (Nose) Bi Tabor is a 62 year old male Patient Vitals for the past 6 hrs: BP Temp Pulse Resp SpO2 Pain Rating Score #1 Pain Scale/Observation Pulse - (SPO2/Cuff) 11/26/22 0901 -- -- -- -- -- 0 F -- 11/26/22 0902 161/99 98.1 ??F (36.7 ??C) (!) 119 20 100 % -- -- -- 11/26/22 1020 (!) 154/126 98.7 ??F (37.1 ??C) (!) 124 (!) 3 94 % 0 F 124 bpm 11/26/22 1023 152/94 -- (!) 125 11 92 % -- -- 126 bpm 11/26/22 1100 -- -- (!) 129 -- -- -- -- -- 11/26/22 1314 130/93 97 ??F (36.1 ??C) 95 18 100 % -- CPOT -- 11/26/22 1315 133/91 -- 95 15 100 % -- -- -- 11/26/22 1320 132/88 -- 94 12 100 % -- -- -- 11/26/22 1325 125/84 -- 97 12 100 % -- -- -- 11/26/22 1330 126/87 -- 99 12 100 % -- -- -- 11/26/22 1345 123/97 -- 101 12 96 % -- -- -- 11/26/22 1400 139/90 -- 101 12 97 % -- -- -- Anesthesia Type: general Pre-op Diagnosis Codes: * Polyp of right nasal cavity [J33.0] Mental Status: sedated Respiratory Function: mechanical ventilation Cardiac Function: stable Postop Pain: adequate Postop Hydration: adequate Postop Nausea: none Assessment: no apparent anesthetic complications, patient tolerated procedure well and no evidence of recall Patient Disposition: Follow Up Needed Additional Comments: Patient with brief episode of VT resolved spontaneously, Medicine notified, MICU to follow. NOTABLE EVENTS: No notable events documented. * Teri Trent MD - 11/26/2022 9:39 AM CDT ANESTHESIA PREOPERATIVE EVALUATION NOTE Procedure: Bilateral Nasal Endoscopy Right Maxillary Antrostomy Removal polyp (Nose) Vitals: Patient Vitals for the past 6 hrs: BP Temp Pulse Resp SpO2 Pain Rating Score #1 11/26/22 0902 161/99 98.1 ??F (36.7 ??C) (!) 119 20 100 % -- 11/26/22 0901 -- -- -- -- -- 0 11/26/22 0554 (!) 165/103 98.4 ??F (36.9 ??C) (!) 131 16 97 % 0 11/26/22 0552 -- -- (!) 122 -- 96 % -- 11/26/22 0456 168/94 98.7 ??F (37.1 ??C) (!) 131 18 96 % -- 11/26/22 0414 -- -- (!) 134 18 96 % -- LMP: No LMP for male patient. OB Status: unknown ANESTHESIA PRE-EVALUATION NOTE History of Present Illness: Bi Tabor is a 62 year old male with a hx of??R. Occipital stroke (2015), head injury, seizures,Alzheimer's, Right BKA, refractory epilepsy, dysphasia w/PEG tube placement on 03/25/22??previouslywith recurrent aspirations now s/p transcervical Zenker's diverticulectomy, tracheostomy 07/15/22??(). ?? Patient sent to ED from facility 2/2 tracheal and oral bleeding that began last night. Also patientfound to have likely complete R bronchial occulusion with CXR.? Upon consultation, bronched at bedside by ENT. Right main bronchus with improved ventilation after suctioning/lavage (large amounts of purulence removed).?? Physical Exam: No Orientation X3 Pre-existing Airway: trach Physical Exam Additional Comments: sats 91% HR 125 ANESTHESIA PLAN ASA Score: 3 NPO Status: No liquids within 2 hours and No solids since midnight Anesthesia Plan: general ETT Planned Induction: intravenous Planned Postop Destination: PACU (Per surgery) Anesthetic Plan discussion was: Consented Use of blood product discussion was: Consented The patient's procedural Anesthetic Plan was discussed with the attending, anesthesiologist, assistant business manager and FACETER. BMI, Height, Weight Tobacco History Estimated body mass index is 17.36 kg/m?? as calculated from the following: Height as of this encounter: 1.778 m (5' 10 ). Weight as of this encounter: 54.9 kg (121 lb). Social History Tobacco Use Smoking Status Former ??? Packs/day: 1.00 ??? Years: 15.00 ??? Pack years: 15.00 ??? Types: Cigarettes Smokeless Tobacco Never Vaping Use ??? Vaping Use: Never used Alcohol History Drug History Social History Substance and Sexual Activity Alcohol Use No Comment: last drink 2015 Social History Substance and Sexual Activity Drug Use No Comment: occasional Outpatient Medications: Inpatient Medications: No outpatient medications have been marked as taking for the 11/24/22 encounter (Hospital Encounter). Current Facility-Administered Medications Medication Dose Last Admin ??? 0.9% NaCl 3 mL 3 mL at 11/26/22 0540 And ??? 0.9% NaCl 1-10 mL ??? acetaminophen 500 mg ??? artificial tears Given at 11/26/22 0542 ??? atorvastatin 40 mg 40 mg at 11/25/222 ??? cloBAZam 20 mg 20 mg at 11/26/22903 ??? dextrose IV for hypoglycemia 12.5 g Or ??? dextrose IV for hypoglycemia 25 g ??? divalproex sprinkle 500 mg 500 mg at 11/26/22 0542 ??? folic acid 1 mg 1 mg at 11/26/22903 ??? glucagon 1 mg ??? glucose (Diabetic Use) ??? glucose (Diabetic Use) gel ??? glucose chew tab 16 g ??? guaiFENesin 10 mL 10 mL at 11/26/22 0542 ??? iopamidol 100 mL at 11/25/22622 ??? lacosamide 200 mg 200 mg at 11/26/22903 ??? lactated ringers New Bag at 11/26/22 0912 ??? levalbuterol 1.25 mg ??? levETIRAcetam 2,000 mg 2,000 mg at 11/26/22903 ??? magnesium sulfate 4 g 4 g at 11/26/22 0914 ??? senna-docusate 1 tablet 1 tablet at 11/26/22 0904 ??? thiamine 100 mg 100 mg at 11/26/22903 Allergies: Allergies Allergen Reactions ??? Clonazepam Psychiatric hallucinations Relevant Problems No relevant active problems Problem List: Patient Active Problem List Diagnosis Date Noted ??? COVID-19 04/14/2021 Priority: High ??? History of CVA (cerebrovascular accident) 12/11/2020 Priority: High ??? Cognitive communication deficit 08/25/2020 Priority: High ??? Dysphagia, oropharyngeal phase 08/25/2020 Priority: High ??? Epilepsy, unspecified, not intractable, without status epilepticus ([facility]) 05/25/2019 Priority: High ??? Hemiplegia and 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-dominant side ([facility]) 05/25/2019 Priority: High ??? Alzheimer's disease with early onset ([facility]) 05/17/2019 Priority: High ??? Paroxysmal tachycardia, unspecified ([facility]) 05/16/2019 Priority: High ??? Alcohol abuse, uncomplicated 08/13/2015 Priority: High ??? Benign neoplasm of prostate 06/26/2015 Priority: High ??? Other specified rheumatoid arthritis, unspecified site ([facility]) 06/26/2015 Priority: High ??? Nasal polyp 11/25/2022 Priority: Not Prioritized ??? Hemoptysis 11/25/2022 Priority: Not Prioritized ??? Acute blood loss anemia 11/25/2022 Priority: Not Prioritized ??? PEG (percutaneous endoscopic gastrostomy) status ([facility]) 11/25/2022 Priority: Not Prioritized ??? Tracheostomy in place ([facility]) 11/25/2022 Priority: Not Prioritized ??? Pressure ulcer of right heel, stage 3 ([facility]) 10/17/2022 Priority: Not Prioritized ??? Dementia, vascular ([facility]) 10/17/2022 Priority: Not Prioritized ??? Atelectasis, right 07/05/2022 Priority: Not Prioritized ??? Contrast-induced nephropathy 07/05/2022 Priority: Not Prioritized ??? 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 Priority: Not Prioritized ??? Leukocytosis, unspecified type 06/28/2022 Priority: Not Prioritized ??? Sinus tachycardia 06/28/2022 Priority: Not Prioritized ??? Hypoxia 06/28/2022 Priority: Not Prioritized ??? Acute respiratory failure with hypoxia ([facility]) 06/28/2022 Priority: Not Prioritized ??? Aspiration pneumonitis ([facility]) 06/13/2022 Priority: Not Prioritized ??? Aspiration into airway 06/12/2022 Priority: Not Prioritized ??? Protein-calorie malnutrition, unspecified severity ([facility]) 06/03/2022 Priority: Not Prioritized ??? Abdominal pain, generalized 05/30/2022 Priority: Not Prioritized ??? Lethargy 05/30/2022 Priority: Not Prioritized ??? History of stroke 05/30/2022 Priority: Not Prioritized ??? Acute on chronic respiratory failure with hypoxia ([facility]) 05/30/2022 Priority: Not Prioritized ??? Bacteremia 03/11/2022 Priority: Not Prioritized ??? Ulcer of left foot ([facility]) 03/11/2022 Priority: Not Prioritized ??? PAD (peripheral artery disease) ([facility]) 03/11/2022 Priority: Not Prioritized ??? Severe protein-calorie malnutrition ([facility]) 03/11/2022 Priority: Not Prioritized ??? Status epilepticus ([facility]) 12/30/2021 Priority: Not Prioritized ??? Seizure disorder ([facility]) 12/30/2021 Priority: Not Prioritized ??? Seizures ([facility]) 08/13/2020 Priority: Not Prioritized ??? Therapeutic procedure Priority: Not Prioritized ??? Cerebrovascular accident ([facility]) 06/13/2019 Priority: Not Prioritized ??? Insomnia 06/13/2019 Priority: Not Prioritized ??? Low back pain 06/13/2019 Priority: Not Prioritized ??? Osteoporosis 11/22/2018 Priority: Not Prioritized ??? Essential (primary) hypertension 07/24/2015 Priority: Not Prioritized ??? Hyperlipidemia 04/14/2015 Priority: Not Prioritized Last Assessment & Plan: Continue home meds and monitor ??? 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 CVA (cerebral vascular accident) ([facility]) ??? HTN (hypertension) ??? Seizure (CMS/HCC) Surgical History: Past Surgical History: Procedure Laterality Date ??? ENDOSCOPY, UPPER N/A 03/25/2022 N/A; ESOPHAGOGASTRODUODENOSCOPY (EGD) DIAGNOSTIC with PEG Placement ??? ENT SURGERY N/A 07/15/2022 N/A; TRANSCERVICAL ZENKERS DIVERTICULECTOMY, OPEN TRACHEOSTOMY ??? 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 unknown OB History No obstetric history on file. Covid Vaccine: Lab Results: Recent Labs Component Name 10/21/22 1737 SARSCOV2 Not detected Recent Labs Base Name 11/26/22 0819 [id number] 105 SPECIMENTYPE Arterial Recent Labs Component Name 11/26/22 0310 WBC 12.7* 12.7* RBC 4.09* 4.09* HCT 37.9 37.9 HGB 12.5 12.5 PLTCOUNT 194 194 MCV 92.7 92.7 MCH 30.6 30.6 MCHC 33.0 33.0 MPV 12.2 12.2 Recent Labs Component Name 11/25/22 0015 ABORH O POS ABSCG NEG Recent Labs Component Name 11/25/22 0005 08/28/22 1516 BLOODU Negative Negative WBCU - 21-50* NITRITE Negative Negative PROTEINU Negative Negative Recent Labs Component Name 11/26/22 0310 POTASSIUM 4.0 CALCIUM 10.0 CO2 26 GLUCOSE 91 BUN 11 CREATININE 0.46* Recent Labs Component Name 11/26/22 0310 MAGNESIUM 1.6 Recent Labs Component Name 11/26/22 0310 PHOS 3.4 Recent Labs Component Name 10/09/22 1204 PH 7.42 PO2 61* PCO2 41 BE 1.9 Recent Labs Component Name 08/28/22 2224 PT 15.2* INR 1.2 No results found for requested labs within last 120 days. Recent Labs Result Component Current Result Alkaline Phosphatase 85 (11/25/2022) ALT 24 (11/25/2022) Anion Gap 10 (11/26/2022) AST 24 (11/25/2022) eGFR by CKD-EPI >90 (11/26/2022) documented in this encounter Miscellaneous Notes * Addendum Note - Maricel Lindsay MD - 11/29/2022 9:49 AM CDT Addendum created 11/29/22 0949 by Maricel Lindsay MD Clinical Note Signed * Anesthesia Transfer of Care - Teri Trent MD - 11/26/2022 2:16 PM CDT ANESTHESIA TRANSFER OF CARE NOTE Today's Date: 11/26/2022 Date of : 1960 Patient: Bi Tabor Procedure(s): Bilateral Nasal Endoscopy, Right polypectomy, Right Maxillary Antrostomy, Rihjy Anterior Ethmoidectomy Surgeon(s): Primary: Alden Hurtado MD Resident - Assisting: Rodrigo Lobo MD Preop Diagnosis: Pre-op Diagnois: * Polyp of right nasal cavity [J33.0] Pre-op Meds (From admission, onward) Start Stop Status Route Frequency Ordered 11/25/22 1112 0.9% NaCl injection 1-10 mL See Hyperspace for full Linked Orders Report. -- Dispensed IK PRN 11/25/22 1113 11/26/22 1332 0.9% NaCl injection 1-10 mL -- Dispensed IK PRN 11/26/22 1333 11/25/22 1400 0.9% NaCl injection 3 mL See Hyperspace for full Linked Orders Report. -- Dispensed IK EVERY 8 HOURS 11/25/22 1113 11/25/22 1236 acetaminophen (Tylenol) tablet 500 mg Note to Pharmacy: OP si (one) tablet by Enteral Tube route every 6 hours as needed Maximum allowable Acetaminophen amount = 4 Grams (4000 mg) / 24 hours. -- Verified Enteral Tube EVERY 6 HOURS PRN 11/25/22 1241 11/26/22 1332 albuterol-ipratropium (Duo-Neb) nebulizer solution 3 mL -- Verified IN POST-OP MULTIPLE 11/26/22 1333 11/25/22 1400 artificial tears ophthalmic ointment Note to Pharmacy: OP sig: Instill into both eyes every 8 hours -- Dispensed BOTH EYES EVERY 8 HOURS 11/25/22 1241 11/25/22 2100 atorvastatin (Lipitor) tablet 40 mg Note to Pharmacy: OP si (one) tablet by Enteral Tube route once daily -- Dispensed Enteral Tube AT BEDTIME 11/25/22 1241 11/25/22 2100 cloBAZam (Onfi) tablet 20 mg Note to Pharmacy: OP si (one) tablet by Enteral Tube route 2 times daily -- Dispensed Enteral Tube 2 TIMES DAILY 11/25/22 1241 11/25/22 1736 dextrose 10 % IV bolus See Hyperspace for full Linked Orders Report. -- Verified IV PRN 11/25/22 1736 11/25/22 1736 dextrose 10 % IV bolus See Hyperspace for full Linked Orders Report. -- Verified IV PRN 11/25/22 1736 11/25/22 1315 divalproex sprinkle (Depakote Sprinkle) capsule 500 mg Note to Pharmacy: OP si (four) capsules by Enteral Tube route every 6 hours -- Dispensed Enteral Tube EVERY 6 HOURS 11/25/22 1241 11/26/22 1332 fentaNYL (PF) (Sublimaze) injection 25 mcg -- Verified IV EVERY 10 MIN PRN 11/26/22 1333 11/26/22 1332 fentaNYL (PF) (Sublimaze) injection 50 mcg -- Verified IV EVERY 10 MIN PRN 11/26/22 1333 11/25/22 1315 folic acid (Folvite) tablet 1 mg Note to Pharmacy: OP si (one) tablet by Enteral Tube route once daily -- Dispensed Enteral Tube DAILY 11/25/22 1241 11/25/22 1736 glucagon (Glucagen) injection 1 mg -- Verified SC PRN 11/25/22 1736 11/25/22 1736 glucose (Diabetic Use) (Dex4 Glucose) oral liquid -- Verified PO PRN 11/25/22 1736 11/25/22 1736 glucose (Diabetic Use) oral gel -- Verified PO PRN 11/25/22 1736 11/25/22 1736 glucose chew tablet 4 tablet -- Verified PO PRN 11/25/22 1736 11/25/22 1315 guaiFENesin (Robitussin) solution 10 mL Note to Pharmacy: OP si mL by Enteral Tube route every 6 hours -- Dispensed Enteral Tube EVERY 6 HOURS 11/25/22 1241 11/26/22 1332 HYDROmorphone (Dilaudid) injection 0.5 mg -- Verified IV EVERY 10 MIN PRN 11/26/22 1333 11/25/22 0619 iopamidol (Isovue 370) 76 % contrast 11/27/22 0618 Dispensed IV CONTRAST ONCE 11/25/22 0620 11/25/22 2100 lacosamide (Vimpat) tablet 200 mg Note to Pharmacy: OP si (one) tablet by Enteral Tube route 2 times daily -- Dispensed Enteral Tube 2 TIMES DAILY 11/25/22 1241 11/25/22 1600 lactated ringers infusion 11/26/22 0359 Dispensed IV CONTINUOUS 11/25/22 1523 11/26/22 0900 lactated ringers infusion 11/26/22 2059 Dispensed IV CONTINUOUS 11/26/22 0829 11/25/22 1300 lactated ringers IV bolus 11/25/22 1706 Completed IV ONCE 11/25/22 1235 11/25/22 1239 levalbuterol (Xopenex) nebulizer solution 1.25 mg Note to Pharmacy: OP sig: Inhale 3 mL by mouth every 8 hours as needed for Shortness of Breath or Wheezing -- Verified IN EVERY 8 HOURS PRN 11/25/22 1241 11/25/22 2100 levETIRAcetam (Keppra) tablet 2,000 mg Note to Pharmacy: OP si (two) tablets by Enteral Tube route 2 times daily -- Dispensed Enteral Tube 2 TIMES DAILY 11/25/22 1241 11/25/22 0312 lidocaine (Xylocaine PF) 1% injection ADS Med Note to Pharmacy: Created by cabinet override 11/25/22 1529 Dispensed 11/25/22 0312 11/25/22 0315 lidocaine (Xylocaine) 1 % injection 11/25/22 1514 Dispensed INFILTRATION NOW 11/25/22 0311 11/26/22 0845 magnesium sulfate 4 g in 100 mL bolus 11/26/22 1449 Completed IV ONCE 11/26/22 0829 11/26/22 1331 naloxone (Narcan) injection 0.04 mg -- Verified IV POST-OP MULTIPLE 11/26/22 1333 11/26/22 1332 ondansetron (Zofran) injection 4 mg -- Verified IV ONCE PRN 11/26/22 1333 11/25/22 0430 oxymetazoline (Afrin) 0.05 % nasal spray 1 spray 11/25/22 1629 Dispensed EACH NOSTRIL NOW 11/25/22 0419 11/26/22 1332 prochlorperazine (Compazine) injection 10 mg -- Verified IV ONCE PRN 11/26/22 1333 11/26/22 1430 propofol (Diprivan) infusion -- Verified IV CONTINUOUS 11/26/22 1353 11/25/22 1315 senna-docusate (Senokot-S) tablet 1 tablet Note to Pharmacy: OP si (one) tablet by Enteral Tube route 2 times daily -- Dispensed Enteral Tube 2 TIMES DAILY 11/25/22 1241 11/27/22 0900 tamsulosin (Flomax) capsule 0.4 mg -- Verified Enteral Tube DAILY 11/26/22 1053 11/25/22 1315 thiamine (Vitamin B-1) tablet 100 mg Note to Pharmacy: OP si (one) tablet by Enteral Tube route once daily -- Dispensed Enteral Tube DAILY 11/25/22 1241 Post-op Diagnosis: * Polyp of right nasal cavity [J33.0] . Allergies Allergen Reactions ??? Clonazepam Psychiatric hallucinations Vitals: Patient Vitals for the past 3 hrs: BP Temp Pulse Resp SpO2 11/26/22 1400 139/90 -- 101 12 97 % 11/26/22 1345 123/97 -- 101 12 96 % 11/26/22 1330 126/87 -- 99 12 100 % 11/26/22 1325 125/84 -- 97 12 100 % 11/26/22 1320 132/88 -- 94 12 100 % 11/26/22 1315 133/91 -- 95 15 100 % 11/26/22 1314 130/93 97 ??F (36.1 ??C) 95 18 100 % Lines, Drains, and Airways Type Details Placement Removal Enteral - 03/25/22; 1653; Jolynn Ann MD; PEG; Abdomen, Midline, Upper; 24; Well 03/25/221653 Lila Russell RN Peripheral IV Date: 11/24/22; Orientation: Left, Posterior; Location: Wrist; Gauge: 22 Gauge 11/24/22 0000 by Mart Cuellar RN Peripheral IV Date: 11/25/22; Time: 0336; Orientation: Left; Location: Antecubital; Gauge: 18 Gauge11/25/22 0336 by Mart Cuellar RN Peripheral IV Date: 11/25/22; Time: 0400; Orientation: Anterior, Right; Location: Wrist; Gauge: 20 Gauge 11/25/22 0400 by Mart Cuellar RN Peripheral IV Date: 11/26/22; Time: 1224; Orientation: Left; Location: Foot; Gauge: 20 Gauge 11/26/22 1224 by Charlie Perry Anes Asst Intraprocedure I/O Totals Output Estimated Blood Loss 75 mL Total Output 75 mL Patient Transfer Location: PACU Transport Airway: intubation Transport Monitoring: heart rate, continuous pulse oximetry, frequent blood pressure checks, break and load operator and other - please comment Complications: None Handoff Given? Yes Checklist or Protocol - The alanis handoff elements that must be included in the transfer of care checklist include: 1. Identification of patient. 2. Identification of responsible practitioner (PACU nurse or advanced practitioner). 3. Discussion of pertinent medical history. 4. Discussion of the surgical/procedure course (procedure, reason for surgery, procedure performed). 5. Intraoperative anesthetic management and issue/concerns. 6. Expectations/Plans for the early post-procedure period. 7. Opportunity for questions and acknowledgement of understanding of report from the receiving PACUteam. Teri Trent MD documented in this encounter Plan of Treatment Upcoming Encounters Date Type Department Care Team (Late st Contact Info) Description 12/05/2024 1:00 PM CDT Office Visit [facility] - Neurology [address] [place] [address], [facility] [place] [id number] Sean Raymundo DO [address] [place] [address] [place] [address] documented as of this encounter Visit Diagnoses Not on filedocumented in this encounter Administered Medications Inactive Administered Medications - up to 3 most recent administrations Medication Order MAR Action Action Date Dose Rate Site 0.9% NaCl infusion Intravenous, CONTINUOUS PRN, Starting on Tue11/26/22 at 1118, Until Tue11/26/22 at 1328, Anesthesia Intra-op $ New Bag/Syringe 11/26/2022 11:18 AM CDT 0.9% NaCl infusion Intravenous, CONTINUOUS PRN, Starting on Tue11/26/22 at 1205, Until Tue11/26/22 at 1328, Anesthesia Intra-op $ New Bag/Syringe 11/26/2022 12:05 PM CDT esmolol (Brevibloc) injection Intravenous, PRN, Starting on Tue11/26/22 at 1235, Until Tue11/26/22 at 1328, Anesthesia Intra-op $ Given 11/26/2022 12:35 PM CDT 20 mg fentaNYL (PF) (Sublimaze) injection Intravenous, PRN, Starting on Tue11/26/22 at 1128, Until Tue11/26/22 at 1328, Anesthesia Intra-op $ Given 11/26/2022 12:11 PM CDT 100 mcg $ Given 11/26/2022 12:06 PM CDT 50 mcg $ Given 11/26/2022 11:28 AM CDT 50 mcg magnesium sulfate 4 g in 100 mL bolus 4 g, at 25 mL/hr, Administer over 240 Minutes, Intravenous, ONCE, 1 dose, On Tue11/26/22 at 0845, Infuse at 1 gm/hr $ Given 11/26/2022 12:49 PM CDT 4 g $ New Bag/Syringe 11/26/2022 9:14 AM CDT 4 g 25 mL/ hr phenylephrine 100 mcg/mL injection Intravenous, CONTINUOUS PRN, Starting on Tue11/26/22 at 1137, Until Tue11/26/22 at 1328, Anesthesia Intra-op Restarted 11/26/2022 12:48 PM CDT 0.3 mcg/kg/min 9.882 mL/hr $ Given 11/26/2022 12:39 PM CDT 100 mcg Rate Change 11/26/2022 12:02 PM CDT 0.3 mcg/kg/min 9.882 m L/hr propofol (Diprivan) infusion Intravenous, CONTINUOUS PRN, Starting on Tue11/26/22 at 1243, Until Tue11/26/22 at 1328, Anesthesia Intra-op $ New Bag/Syringe 11/26/2022 12:43 PM CDT 25 mcg/kg/min 8.235 mL/hr propofol (Diprivan) injection Intravenous, PRN, Starting on Tue11/26/22 at 1131, Until Tue11/26/22 at 1328, Anesthesia Intra-op $ Given 11/26/2022 11:31 AM CDT 50 mg rocuronium (Zemuron) injection Intravenous, PRN, Starting on Tue11/26/22 at 1131, Until Tue11/26/22 at 1328, Anesthesia Intra-op $ Given 11/26/2022 12:05 PM CDT 25 mg $ Given 11/26/2022 11:31 AM CDT 25 mg sugammadex (Bridion) injection Intravenous, PRN, Starting on Tue11/26/22 at 1313, Until Tue11/26/22 at 1329, Anesthesia Intra-op $ Given 11/26/2022 1:13 PM CDT 200 mg documented in this encounter Additional Health Concerns Infection Onset Date Last Indicated Resolved Time MRSA 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
--- OUTSIDE RECORDS SUMMARY | 2024-06-08 05:32 | XMS_ITS | Encounter Summary ---
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 Not hard at all 11/28/2022 [facility] Occupat ional Health - Occupational Stress [...] slept in a longterm (including now)? 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 It has not been cleared or approved by the [place] Food and Drug Administration. This test was performed in a CLIA-certified laboratory and is intended for clinical purposes. Performed By: [place] [address] Code Official: Power Milian MD, PhD Blood BLOOD SPECIMEN / Unknown Lab Venipuncture / Unknown 12/08/2022 4:29 AM CDT 12/08/2022 5:35 AM CDT [place] [facility] KOLTON-GAS PUMP ATTENDANT LAB - CHEMISTR Y ORDERABLES Performing Organization Address [facility]/ZIP Co de Phone Number [address] * (ABNORMAL) VALPROIC ACID LEVEL (12/08/2022 4:29 AM CDT) Valproic Acid Total 38(L) 50 - 100 ug/mL 12/08/2022 6:27 AM CDT [facility] Blood BLOOD SPECIMEN / Unknown Lab Venipuncture / Unknown 12/08/2022 4:29 AM CDT 12/08/2022 5:35 AM CDT Yana Rm APRN-GAS PUMP ATTENDANT LAB - CHEMISTR Y ORDERABLES Performing Organization Address [place]/[facility]/ZIP Co de Phone Number [address] [address], [facility] [phone] * (ABNORMAL) LEVETIRACETAM LEVEL (12/08/2022 4:29 AM CDT) Levetiracetam 43(H) 10 - 40 ug/mL 12/09/2022 3:20 PM CDT [facility] ([facility]) Comment: INTERPRETIVE INFORMATION: Keppra (Levetiracetam) Therapeutic Range: ??10-40 ug/mL ?Toxic: ??Not well Established Pharmacokinetics of levetiracetam are affected by renal function. Adverse effects may include somnolence, weakness, headache and vomiting. This levetiracetam (Keppra) immunoassay uses the [employer] reagents, which has known cross-reactivity with the drug brivaracetam (Briviact) and may report inaccurate results. Patients transitioning from levetiracetam to brivaracetam or those who are using both medications should not monitor drug concentrations with the [employer] assay. These patients should be monitored using a validated chromatographic methodology that distinguishes between drugs to determine drug concentrations. 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
--- OUTSIDE RECORDS SUMMARY | 2024-06-08 05:32 | XMS_ITS | Encounter Summary ---
Author Organization [facility] Address [address] [place] [address] Care Team Providers Care Manager College Name Role Phone Elizabeth Sullivan RN Unavailable [phone] Joyce Luevano INDUSTRIAL THERAPIST-COPY AND PRINT ASSOCIATE Primary Care Provider [phone] Reason for Visit * Reason Comments HEMOPTYSIS Pt BIBEMS due to blo od noted while suctioning patient trach. * Auth/Cert (Routine) Specialty Diagnoses / Procedures Referred By Anabella dan Referred To Contact Referral ID Status Reason Start Date Expiration Date Visits Re quested Visits Authorized [id number] 1 1 Encounter Details Date Type Department Care Team (Late st Contact Info) Description 11/24/2022 11:31 PM CDT - 12/16/2022 8:30 PM CDT Hospital Encounter SL 6N ACUTE [address] [place] [address] Arthur Marinelli MD [address] [place] [address] Neville Hewitt III, MD [address] [facility] 2L DIV OF [facility] [place] [address] Germaine Nails MD [address] [place] [address] Stephen Witt MD [address] [place] [address] Ilir Mckenzie MD [address] 2[address] DIV OF PULMONARY/[place] [address] Dina Pritchard DO [address] 2L DIV [place] [address] Feliciano Madrid MD [address] DIV [place] [address] Internal Medicine Discharge Disposition: Nursing Facility:Medicaid Social History Tobacco [...] and heating? Not hard at all 11/28/2022 [facility] [place] [facility] - Occupational Stress [...] Recorded In the last 10 days, have tayo u been in contact with someone who was confirmed or suspected to have Coronavirus/COVID-19? No / Unsure 11/12/2022 9:01 AM CDT documented as of this encounter Last Filed Vital Signs Vital Sign Reading Time Taken Comments Blood Pressure 129/83 12/16/2022 6:50 PM CDT Pulse 87 12/16/2022 6:50 PM CDT Temperature 36.6 ??C (97.9 ??F) 12/16/2022 6:50 PM CD T Respiratory Rate 24 12/16/2022 6:50 PM CDT Oxygen Saturation 100% 12/16/2022 6:50 PM CDT Inhaled Oxygen Concentration 28% 12:42 PM CDT Weight 72.4 kg (159 lb 11.2 oz) 12/16/2022 4:07 AM CDT Height 177.8 cm (5' 10 ) 12/14/2022 4:00 AM CDT Body Mass Index 22.91 12/14/2022 4:00 AM CDT documented in this encounter Functional [...] Yes 11/28/2022 documented as of this encounter Discharge Summaries * Rober Conti, DO - 12/16/2022 1:45 PM CDT [facility] INTERNAL MEDICINE DISCHARGE SUMMARY PATIENT: Mojgan Tabor 62 year old male : 1960 ADMISSION INFORMATION ADMISSION DISCHARGE Date: 11/24/2022 Date: 12/16/2022 Admitting Physician Germaine Nails MD Discharge Physician: Feliciano Madrid MD Present on Admission: ??? Nasal polyp ??? (Resolved) Hemoptysis ??? History of CVA (cerebrovascular accident) ??? Seizure disorder (CMS/HCC) ??? Dementia, vascular (CMS/HCC) ??? (Resolved) Acute on chronic respiratory failure with hypoxia (CMS/HCC) ??? Acute blood loss anemia ??? PEG (percutaneous endoscopic gastrostomy) status (CMS/HCC) ??? Tracheostomy in place (CMS/HCC) ??? Severe protein-calorie malnutrition (CMS/HCC) ??? Chronic respiratory failure with hypoxia (CMS/HCC) ??? Delayed gastric emptying Discharge Diagnoses: Gastric outlet obstruction Acute blood loss anemia Seizure disorder Hemoptysis Chronic resp failure with ypoxia CVA Admission Condition: fair Discharged Condition: fair Consults: IP CONSULT TO OTOLARYNGOLOGY IP CONSULT TO NUTRITIONAL SERV IP CONSULT TO RESPIRATORY IP CONSULT TO RADIOLOGY TEACHER IP CONSULT TO NUTRITIONAL SERV IP CONSULT TO NUTRITIONAL SERV IP CONSULT TO GENERAL SURGERY IP CONSULT TO INFECTIOUS DISEASES IP CONSULT TO INTERVENTIONAL RADIOLOGY IP CONSULT TO GASTROENTEROLOGY HOSPITAL COURSE Hospital Course: Mojgan Tabor is 62 yo w/ pmhx of chronic resp failure w/ new hypoxia, dementia, CVA w/ left sided deficits, trach and GJ tube 12/14/22, zenker diverticulum s/p diverticulectomy 2022, PVD s/p L AKA, presenting from [facility] in [place] for bleeding from trach and AoC resp failure. ?? ENT consulted on admission to medicine floors. Underwent R maxillary antrostomy w/ polypectomy and R anterior ethmoidectomy on 11/26/22. During procedure, pt suffered Vtach w/ spontaneous conversion to SR after 2-3 minutes. Admitted to ICU and intubated. Pt tachycardic 140's w/ uncontrolled HTN. Improved with IV esmolol; later switched to Metoprolol tartrate per cards rec. Course complicated by VAP treated with Cefepime and completed on 12/07/22. Extubated on 12/06. ?? 12/07 transferred to medicine floors. Gastric emptying scan abnormal w/ T1/2 >120 mins. Nutritionconsulted and tube feeds resumed. 12/08 IR consulted for GJ tube placement. ?? 12/10 PEG tube placed by GI. 12/14 GJ tube placed w/ need of 24 hour trial before patient is able to return to facility. Nutrition to continue following for final nutrition recs. 12/16 Patient tolerating tube feeds via GJ-tube. Patient deemed medically cleared and stable for discharge to [facility]. Note to PCP (e.g. vitals, labs, imaging, medication start/stop, etc. to follow): Patient discharged on Metoprolol tartrate for rhythm control d/t intraoperative ventricular tachycardia. Will need follow-up. Significant Diagnostic Studies: Labs this admission: CBC: Recent Labs Lab 12/16/22 0349 12/15/22 0818 12/14/22 0638 12/13/22 1118 12/12/22 1530 WBC 11.2* 9.2 16.9* 1 9.2 HGB 12.1 11.3* 11.9* 1 11.3* HCT 38.2 33.6* 35.9 1 34.7* MCV 94.3 89.8 91.1 1 91.3 PLTCOUNT -- 123* 134* -- 202 1 = values in this interval not displayed. BMP: Recent Labs Lab 12/16/22 0349 12/15/22 0818 12/14/22 0638 NA 133* 135* 135* POTASSIUM 4.7* 4.2 4.2 CL 105 103 104 BUN 12 11 10 CREATININE 0.52* 0.51* 0.47* CALCIUM 9.3 9.3 9.9 CMP: Recent Labs Lab 12/16/22 0349 12/15/22 0818 12/14/22 0638 11/26/22 0310 11/25/22 0335 11/04/22 0633 10/09/22 1204 AST -- -- -- -- 24 25 15 ALT -- -- -- -- 24 27 10 TBILI -- -- -- -- 0.2 0.2 0.1* ALKPHOS -- -- -- -- 85 124 83 ALB 2.3* 2.3* 2.4* 1 2.6* 2.9* 3.0* PROT -- -- -- -- 6.9 7.7 6.9 1 = values in this interval not displayed. Coagulation: Recent Labs Lab Units 12/13/22 0146 PT Seconds 13.3 INR 1.0 Pertinent Microbiology: Pending labs: Imaging: (only include the pertinent ones) IR PERC G TO GJ TUBE EXCHANGE Result Date: 12/16/2022 Impression: Successful conversion of the existing 24 [place] gastrostomy catheter for a new 18-Uruguayan balloon-retention gastrojejunostomy catheter under fluoroscopic guidance, as [...] and call the IR service. I, Dr. Stock, was present and performed/supervised the entire procedure. > Interpreting Provider: Krystal Stock on 12/16/2022 11:17 AM Discharge Exam: Vitals: BP 127/83 Pulse 92 Temp 98.6 ??F (37 ??C) Resp 18 Ht 1.778 m (5' 10 ) Wt 72.4 kg (159 lb 11.2 oz) SpO2 99% Gen: Alert, cooperative, no distress Head: Normocephalic, without obvious abnormality, atraumatic Eyes: Conjunctivae/corneas clear, EOMI Nose: Mucosa normal. No drainage. Throat: Tracheostomy tube present Neck: No JVD, no carotid bruit, trachea midline Back: Symmetric, no curvature Resp: CTAB, no wheezes/crackles CV: RRR, S1S2, No M/R/G Abd: GJ tube present with no drainage Ext: No clubbing, cyanosis, edema; no skin changes consistent with venous stasis or arterial disease Pulses: 2+ DP B Skin: Skin color, texture, turgor normal. No rashes or lesions Neuro: Nonverbal at baseline DISCHARGE PLANNING Disposition: shelter facility Patient Instructions: Medication List START taking these medications levETIRAcetam 100 MG/ML oral solution Commonly known as: Keppra 20 mL by Enteral Tube route 2 times daily Replaces: levETIRAcetam 1000 MG tablet metoprolol tartrate IR 25 MG tablet Commonly known as: Lopressor 1 (one) tablet by Enteral Tube route 2 times daily polyethylene glycol 3350 17 g packet Commonly known as: Miralax 17 (seventeen) g by Enteral Tube route once daily CHANGE how you take these medications cloBAZam 20 MG tablet Commonly known as: Onfi 1 (one) tablet by Enteral Tube route 2 times daily What changed: Another medication with the same name was removed. Continue taking this medication, and follow the directions you see here. divalproex sprinkle 125 MG capsule Commonly known as: Depakote Sprinkle 4 (four) capsules by Enteral Tube route every 6 hours What changed: Another medication with the same name was removed. Continue taking this medication, and follow the directions you see here. lacosamide 200 MG tablet Commonly known as: Vimpat 1 (one) tablet by Enteral Tube route 2 times daily What changed: Another medication with the same name was removed. Continue taking this medication, and follow the directions you see here. CONTINUE taking these medications acetaminophen 500 MG tablet Commonly known as: Tylenol 1 (one) tablet by Enteral Tube route every 6 hours as needed Maximum allowable Acetaminophen amount= 4 Grams (4000 mg) / 24 hours. artificial tears ophthalmic ointment Instill into both eyes every 8 hours aspirin 81 MG chew tablet Commonly known as: Aspirin atorvastatin 40 MG tablet Commonly known as: Lipitor 1 (one) tablet by Enteral Tube route once daily docusate sodium 150 MG/15ML solution Commonly known as: Colace enoxaparin 40 MG/0.4ML injection Commonly known as: Lovenox folic acid 1 MG tablet Commonly known as: Folvite 1 (one) tablet by Enteral Tube route once daily guaiFENesin 100 MG/5ML solution Commonly known as: Robitussin 10 mL by Enteral Tube route every 6 hours levalbuterol 1.25 MG/3ML nebulizer solution Commonly known as: Xopenex Inhale 3 mL by mouth every 8 hours as needed for Shortness of Breath or Wheezing tamsulosin 0.4 MG capsule Commonly known as: Flomax Take 1 (one) capsule by mouth once daily At the same time every day after a meal. Please make sure it is via enteral tube. thiamine 100 MG tablet Commonly known as: Vitamin B-1 1 (one) tablet by Enteral Tube route once daily STOP taking these medications cetirizine 10 MG tablet Commonly known as: ZyrTEC fluticasone propionate 50 MCG/ACT nasal spray Commonly known as: Flonase levETIRAcetam 1000 MG tablet Commonly known as: Keppra Replaced by: levETIRAcetam 100 MG/ML oral solution Nayzilam 5 MG/0.1ML nasal spray Generic drug: midazolam scopolamine 1 MG patch Commonly known as: Transderm-Scop senna-docusate 8.6-50 MG tablet Commonly known as: Senokot-S Where to Get Your Medications Information about where to get these medications is not yet available Ask your nurse or doctor about these medications ?? levETIRAcetam 100 MG/ML oral solution ?? metoprolol tartrate IR 25 MG tablet ?? polyethylene glycol 3350 17 g packet Discharge Instructions DISCHARGE INSTRUCTIONS? A MESSAGE FROM YOUR DOCTORS:?? To whom it may concern, Mr. Tabor was admitted to the hospital due to bleeding polyp from his tracheostomy tube. During ENTprocedure to remove polyp, patient had suffered runs of intraoperative ventricular tachycardia. Pt was then admitted to the medicine floor to be followed. Since admission, patient has been stable. PEG had to be replaced to GJ tube due to risk of aspiration and gastric outlet obstruction. Following GJ placement, patient continues to tolerate tube feeds and deemed medically cleared to be dischargedback to facility. Per cardiology, patient has been placed on metoprolol 25 mg for rhythm control. 1. DISCHARGE MEDICATIONS:? Below were changes made to your home medications:? START TAKING (and why)? -? Levetiracetam 100 mg - Metoprolol tartrate 25 - Miralax ? Other than the changes stated above, continue all other home medications as prescribed.? Please discuss these changes with your Primary Care Physician (or your specialist doctor).?? If you have any questions about your medications, please ask the pharmacy when you pepper picker your prescription. You may also call your primary provider if you still have questions.? ? 2. FOLLOW-UP:? A) Below are your scheduled appointments? ? -If you are not going home [...] ? 3.? Wound Care instructions IF APPLICABLE? None ? 4. ?Lifestyle Modifications? -It is very important [...] in your care!? ? Internal Medicine Team? [facility] [address]? [place] [address]? ? Signed: Rober Conti DO Internal Medicine Resident [facility] 12/16/2022 1:45 PM Associated attestation - Feliciano Madrid MD - 12/22/2022 7:00 PM CDT Attending Physician Attestation I have seen and examined the patient with the resident and I agree with the findings and plan of care as documented by Dr. Conti. Delayed gastric emptying (POA: Yes) History of CVA (cerebrovascular accident) (POA: Yes) Seizure disorder (CMS/HCC) (POA: Yes) Severe protein-calorie malnutrition (CMS/HCC) (POA: Yes) Chronic respiratory failure with hypoxia (CMS/HCC) (POA: Yes) Dementia, vascular (CMS/HCC) (POA: Yes) Nasal polyp (POA: Yes) Acute blood loss anemia (POA: Yes) PEG (percutaneous endoscopic gastrostomy) status (CMS/HCC) (POA: Yes) Tracheostomy in place (CMS/HCC) (POA: Yes) Date of Service: 12/16/2022 Time spent on discharge: 35 minutes. Time was spent on preparation of discharge records, discussion with family, and working with socialwork and nursing. Feliciano Madrid MD documented in this encounter Discharge Instructions * Discharge Instructions* Rober Conti, - 12/15/2022 6:50 PM CDT DISCHARGE INSTRUCTIONS? A MESSAGE FROM YOUR DOCTORS:?? To whom it may concern, Mr. Tabor was admitted to the hospital due to bleeding polyp from his tracheostomy tube. During ENTprocedure to remove polyp, patient had suffered runs of intraoperative ventricular tachycardia. Pt was then admitted to the medicine floor to be followed. Since admission, patient has been stable. PEG had to be replaced to GJ tube due to risk of aspiration and gastric outlet obstruction. Following GJ placement, patient continues to tolerate tube feeds and deemed medically cleared to be dischargedback to facility. Per cardiology, patient has been placed on metoprolol 25 mg for rhythm control. DISCHARGE MEDICATIONS:? Below were changes made to your home medications:? START TAKING (and why)? -? Levetiracetam 100 mg - Metoprolol tartrate 25 - Miralax ? Other than the changes stated above, continue all other home medications as prescribed.? Please discuss these changes with your Primary Care Physician (or your specialist doctor).?? If you have any questions about your medications, please ask the pharmacy when you pepper picker your prescription. You may also call your primary provider if you still have questions.? ? 2. FOLLOW-UP:? A) Below are your scheduled appointments? ? -If you are not going home [...] ? 3.? Wound Care instructions IF APPLICABLE? None ? 4. ?Lifestyle Modifications? -It is very important [...] in your care!? ? Internal Medicine Team? [facility] [address] [facility]? [place] [address]? ? documented in this encounter Medications at Time of Discharge Medication Sig Dispensed Refills Start Date End Date artificial tears ophthalmic ointment Instill into both eyes every 8 hours 10/22/2022 aspirin (Aspirin) 81 MG chew tablet 1 (one) tablet by Enteral Tube route once daily folic acid (Folvite) 1 MG tablet 1 (one) tablet by Enteral Tube route once daily 04/01/2022 metoprolol tartrate IR (Lopressor) 25 MG tablet 1 (one) tablet by Enteral Tube route 2 times daily 12/15/2022 thiamine (Vitamin B-1) 100 MG tablet 1 (one) tablet by Enteral Tube route once daily 04/01/2022 acetaminophen (Tylenol) 500 MG tablet 1 (one) tablet by Enteral Tube route every 6 hours as needed Maximum allowable Acetaminophen amount = 4 Grams (4000 mg) / 24 hours. 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, not intractable, without status epilepticus (HCC) 1 (one) tablet by Enteral Tube route 2 times daily 60 tablet 5 11/11/2022 02/13/2023 clopidogrel (plaVIX) 75 MG tablet 11/15/2022 01/14/[address] (Depakote) 125 MG tablet 11/17/2022 01/14/2023 divalproex sprinkle (Depakote Sprinkle) 125 MG capsuleIndications: 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, not intractable, without status epilepticus (HCC) 4 (four) capsules by Enteral Tube route every 6 hours 480 capsule 11/11/2022 01/14/2023 docusate sodium (Colace) 150 MG/15ML solution Take 15 mL by mouth once daily as needed for Constipation 04/07/2022 01/14/2023 enoxaparin (Lovenox) 40 MG/0.4ML injection Inject 40 (forty) mg subcutaneously once daily 02/28/2023 guaiFENesin (Robitussin) 100 MG/5ML solution 10 mL by Enteral Tube route every 6 hours 10/22/2022 02/28/2023 lacosamide (Vimpat) 200 MG tabletIndications: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, not intractable, without status epilepticus (HCC) 1 (one) tablet by Enteral Tube route 2 times daily 60 tablet 5 11/11/2022 02/28/2023 lacosamide (VIMPAT) 200 MG tablet Take 1 tablet by mouth 2 times daily for 30 days 60 tablet 5 05/16/2019 06/28/2023 levalbuterol (Xopenex) 1.25 MG/3ML nebulizer solution Inhale 3 mL by mouth every 8 hours as needed for Shortness of Breath or Wheezing 10/22/2022 01/14/2023 levETIRAcetam (Keppra) 100 MG/ML oral solution 20 mL by Enteral Tube route 2 times daily 12/15/2022 01/14/2023 levETIRAcetam (KEPPRA) 1000 MG tablet Take 2 tablets by mouth 2 times daily for 30 days 120 tablet 5 05/16/2019 01/14/2023 levETIRAcetam (KEPPRA) 1000 MG tabletIndications: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, intractable, without status epilepticus (HCC) Take 2 tablets by mouth 2 times daily for 30 days 120 tablet 5 02/15/2019 01/14/2023 levETIRAcetam (Keppra) 500 MG tablet 08/29/2022 01/14/2023 levETIRAcetam (KEPPRA) 750 MG tabletIndications: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, intractable, without status epilepticus (HCC) Take 3 tablets by mouth 2 times daily for 30 days 180 tablet 06/10/2018 01/14/2023 levoFLOXacin (Levaquin) 250 MG tablet 11/18/2022 01/14/2023 levoFLOXacin (Levaquin) 500 MG tablet 11/18/2022 01/14/2023 levoFLOXacin (Levaquin) 750 MG tablet 11/17/2022 01/14/2023 ondansetron (Zofran) 4 MG tablet 11/19/2022 01/14/2023 polyethylene glycol 3350 (Miralax) 17 g packet 17 (seventeen) g by Enteral Tube route once daily 12/16/2022 02/28/2023 tamsulosin (Flomax) 0.4 MG capsule Take 1 (one) capsule by mouth once daily At the same time every day after a meal. Please make sure it is via enteral tube. 06/15/2022 01/14/2023 Tobramycin Sulfate 80 MG/2ML 11/23/2022 01/14/2023 Valproate Sodium (Valproic Acid) 250 MG/5ML 11/11/2022 01/14/2023 documented as of this encounter Progress Notes * Deshawn, Gracia Leal - 12/16/2022 3:18 PM CDT Facility Transfer Note Level of Care: Actual level of care at discharge: [facility]sp - Medicaid Facility Name: (include name of person confirming admission): Actual discharge provider: [facility] Made Aware of Special Needs (if applicable): n/a RN Call Report to:[phone] Fax D/C Orders to:[phone] Transportation (company and number): [email or web address] Certificate of Medical Necessity rationale: CVA, impaired mobility, dementia, Date/time of transfer: 12-16-22 @ 5:15pm Accepting MD and contact #: n/a Completed and Signed [id number] (if applicable): n/a Family/Other Notified of Transfer (name/phone): facility Authorization Skilled Care: Authorization for Transportation: Verified Qualifying Stay(Skilled Only): NOT APPLICABLE Comments: Name/Phone number: Gracia Hess [phone] * Armando Villalta RN - 12/16/2022 12:06 AM CDT Problem: Skin Integrity Goal: Skin [...] in the flowsheet documentation) Outcome: Progressing * Nuria Guajardo RD/ONI - 12/15/2022 2:36 PM CDT Nutrition Re-Assessment Brief Synopsis: Patient is diagnosed with severe malnutrition; Specific criteria can be found in assessment below Nutrition Plan: Osmolite 1.2 at 80 ml/hr. Provides 2304 kcals, 107 g pro, 302 g carbohydrate, 1574 ml free water +50 ml q 6 hrs free water flush or per MD if on IVF +100 ml q4 hrs free water flush or per MD if not on additional fluids No bolus feeds through J tube Recommendations to Physician: Advance to goal as tolerated Comments: Pt scheduled for reassessment. Pt receiving TF at 50 ml/hr. Advancing to goal as tolerated. Per notes pt must tolerate TF x24 hrs prior to d/c to facility. Last BM 12/11. Abdomen soft. Assessment: Med/Surg History and Clinical Diagnoses: 62 year old male w/PMHx significant for prior CVA c/b left-sided residual deficits, seizure disorder, dementia, dysphagia w/ recurrent aspiration s/p PEG, zenker divertiuculum s/p diverticulectomy 2022, chronic hypoxic respiratory faiure s/p trach 06/2022, PVD s/p L AKA, and HTN who presents to [facility] from [facility]) for acute on chronic hypoxic respiratory failure and evaluation of bleeding from tracheostomy Diet order accuracy Current diet order: NPO Current supplement order: None Current tube feeding order: osmolite 1.2 at 50 ml/hr Nutrition recommendation: alter/change nutrition order P.O.Intake for the past 48 hrs:No data recorded Supplement(s) Consumed- Last 48 hours None Food Allergies: No known food allergies GI Concerns: (GJ tube) Chewing/Swallowing: (NPO; Trach) Pain affecting intake: No Admission weight: Weight: 54.9 kg (121 lb) (11/25/22 0620) Recent Weights/Methods 12/02/2022 0355 12/03/2022 0229 12/04/2022 0333 12/05/2022 0321 12/06/2022 0311 12/07/2022 0600 12/08/2022 0400 12/14/2022 0400 Weight: 70.3 kg (155 lb) 73.3 kg (161 lb 9.6 oz) 70 kg (154 lb 4.8 oz) 68.7 kg (151 lb 6.4 oz) 68.9kg (152 lb) 70.8 kg (156 lb 1.6 oz) 70.8 kg (156 lb) 61.6 kg (135 lb 12.8 oz) Weight Method (Utilize Scales): Bedscale Bedscale Bedscale Bedscale Bedscale Bedscale Bedscale Bedscale Wt Comments: down 20 lbs x 15 days Height: 177.8 cm (5' 10 ) IBW/lb (Calculated) Male: 166 , Laboratory values reviewed. Recent Labs Component Name 12/15/22 0818 12/14/22 0638 12/13/22 0146 11/26/22 0310 11/25/22 0335 11/04/22 0633 10/12/22 0716 10/09/22 1204 BUN 11 10 12 - 16 14 - 14 CREATININE 0.51* 0.47* 0.49* - 0.45* 0.47* - 0.39* NA 135* 135* 135* - 138 136 - 140 POTASSIUM 4.2 4.2 4.7* - 4.5 4.0 - 4.0 CL 103 104 103 - 108* 106 - 108* CO2 27 23 25 - 26 24 - 24 GLUCOSE 110 114 94 - 91 98 - 115 CALCIUM 9.3 9.9 9.9 - 9.5 9.7 - 9.8 PROT - - - - 6.9 7.7 - 6.9 ALB 2.3* 2.4* 2.5* - 2.6* 2.9* - 3.0* TBILI - - - - 0.2 0.2 - 0.1* ALKPHOS - - - - 85 124 - 83 ALT - - - - 24 27 - 10 AST - - - - 24 25 - 15 ANIONGAP 9 12 12 - 9 10 - 12 BCR 22 21 24* - 36* 30* - 36* OSMOLALITY 280 280 280 - 287 282 - 291 AGRATIO - - - - 0.6* 0.6* - 0.8* EGFR >90 >90 >90 - >90 >90 - >90 - = values in this interval not displayed. Medications noted. Current Facility-Administered Medications Medication ??? 0.9% NaCl injection 3 mL And ??? 0.9% NaCl injection 1-10 mL ??? acetaminophen (Tylenol) tablet 650 mg ??? aspirin chew tablet 81 mg ??? atorvastatin (Lipitor) tablet 40 mg ??? cloBAZam (Onfi) tablet 20 mg ??? divalproex sprinkle (Depakote Sprinkle) capsule 500 mg ??? folic acid (Folvite) tablet 1 mg ??? glucagon (Glucagen) injection 1 mg ??? glucose (Diabetic Use) (Dex4 Glucose) oral liquid ??? glucose (Diabetic Use) oral gel ??? glucose chew tablet 4 tablet ??? guaiFENesin (Robitussin) solution 10 mL ??? heparin injection 5,000 Units ??? lacosamide (Vimpat) tablet 200 mg ??? levalbuterol (Xopenex) nebulizer solution 1.25 mg ??? levETIRAcetam (Keppra) oral solution 2,000 mg ??? metoprolol tartrate IR (Lopressor) tablet 25 mg ??? polyethylene glycol 3350 (Miralax) packet 17 g ??? sodium chloride (Inhalant) 7 % nebulizer solution 4 mL ??? tamsulosin (Flomax) capsule 0.4 mg ??? thiamine (Vitamin B-1) tablet 100 mg Skin/Wound: surgical incision on nose Estimated Energy Needs: KCAL: [id number] (30-35kcal/kg (ABW)) Protein (g): 90g (1.3g/kg (ABW)) Fluid (ml): 1 ml/kcal Needs based on: Kcal/kg- (Comment) (ABW 70.8kg) Recommended Access Route: TF Malnutrition Etiology: Malnutrition in the context of: chronic disease, Malnutrition Severity: Severe Unintended weight change: Severe weight loss Weight Loss: > 7.5% x 3 months BMI: Body mass index is 19.49 kg/m??. GI Concerns: (GJ tube) Nutrition Focused Physical Assessment: Loss of Subcutaneous Fat Orbital: Severe Buccal: Severe Muscle Loss Temples (Temporalis Muscle): Severe Clavicles (Pectoralis & Deltoids): Severe Shoulders (Deltoids): Severe Thigh (Quadriceps): Severe Education needed: None Education Provided: Not appropriate Nutrition Care Process (1) Nutrition Diagnostic Statement: Malnutrition severity: : Severe related to:: inadequate protein-energy intake as evidenced by:: unintentional weight loss;loss of subcutaneous fat;loss of muscle mass;BMI less than 19 Nutrition Diagnostic Statement Progress: Nutrition problem continues Nutrition Intervention: Enteral nutrition: Monitoring: TF, BM, labs, meds, weight Evaluation: Nutrition Goal: Enteral/Parenteral Nutrition prescription will be consistent with estimated nutrient needs Nutrition Goal Timeframe: Throughout stay Nutrition Goal Progress: Continue with current goal Ascom: [id number] * Rober Conti, - 12/15/2022 12:55 PM CDT Internal Medicine Progress Note Patient Name: Mojgan Tabor (62 year old) Room Number: 613/01 Hospital Day: 19 Admit Date: 11/24/2022 Subjective: Interval history: Pt seen at the bedside. Pt is nonverbal. Inquired patient if he is in pain to blink twice and he did. Pt was coughing with sputum production per trach. Pt currently tolerating TF through GJ-tube. Hospital course: Mojgan Tabor is 62 yo w/ pmhx of chronic resp failure w/ new hypoxia, dementia, CVA w/ left sided deficits, trach and GJ tube 12/14/22, zenker diverticulum s/p diverticulectomy 2022, PVD s/p L AKA, presenting from [facility] in [place] for bleeding from trach and AoC resp failure. ENT consulted on admission to medicine floors. Underwent R maxillary antrostomy w/ polypectomy and R anterior ethmoidectomy on 11/26/22. During procedure, pt suffered Vtach w/ spontaneous conversion to SR after 2-3 minutes. Admitted to ICU and intubated. Pt tachycardic 140's w/ uncontrolled HTN. Improved with IV esmolol; later switched to Metoprolol tartrate per cards rec. Course complicated by VAP treated with Cefepime and completed on 12/07/22. Extubated on 12/06. 12/07 transferred to medicine floors. Gastric emptying scan abnormal w/ T1/2 >120 mins. Nutritionconsulted and tube feeds resumed. 12/08 IR consulted for GJ tube placement. 12/10 PEG tube placed by GI. 12/14 GJ tube placed w/ need of 24 hour trial before patient is able to return to facility. Nutrition to continue following for final nutrition recs. . Objective: T: 98 ??F (36.7 ??C) [Temp Min: 97.2 ??F (36.2 ??C) Max: 98.5 ??F (36.9 ??C)] HR: 80[Pulse Min: 80 Max: 117] BP: 136/99[BP Min: 111/71 Max: 161/92] MAP: 109[MAP (mmHg) Min: 84 Max: 127] RR: 14[Resp Min: 14 Max: 22] Sat: 100 %[SpO2 Min: 92 % Max: 100 %] Date 12/13/22699 - 12/14/2265812/14/22699 - 12/15/22658 Shift 3796-8139 1267-6117 24 Hour Total 5906-4955 4089-3077 24 Hour Total INTAKE I.V.(mL/kg/hr) 263.5(0.3) 16.2(0) 279.7(0.2) Shift Total(mL/kg) 263.5(3.7) 16.2(0.3) 279.7(4.5) OUTPUT Urine(mL/kg/hr) 1050(1.2) 650(0.9) 1700(1.1) Drains 0 0 Shift Total(mL/kg) 1050(14.8) 650(10.6) 1700(27.6) NET -786.5 -633.8 -1420.3 Weight (kg) 70.8 61.6 61.6 61.6 61.6 61.6 Physical Exam: General - NAD, conversational, A&O x4 HEENT - NC/AT, PERRL, EOMI, MMM, clear conjunctivae Neck - Trach in place. Pulmonary - CTAB, no crackles/wheezes/rale/rhonchi. Cardiac - RRR, no murmurs appreciated. No JVD. Capillary refill normal. 3/4 radial and 3/4 DP pulses b/l Abdomen - Rigid, NT/ND, +BS, no hepatosplenomegaly, PEG tube in place Musculoskeletal - Difficulty moving extremities, stiff upon examiner movement. Extremities - LLE with below knee amputation. No clubbing, no cyanosis, no edema Skin - Seborrheic Dermatitis on scalp. No rashes, lesions, or jaundice noted Neurologic - CN II-XII grossly intact. Largely nonverbal, can follow simple verbal commands. No focal deficits Psych - Appropriate mood and affect Medications SCHEDULED MEDICATIONS: 0.9% NaCl injection 3 mL, Intracatheter, q8h atorvastatin (Lipitor) tablet 40 mg, Enteral Tube, AT BEDTIME cloBAZam (Onfi) tablet 20 mg, Enteral Tube, BID divalproex sprinkle (Depakote Sprinkle) capsule 500 mg, Enteral Tube, q6h folic acid (Folvite) tablet 1 mg, Enteral Tube, QDAY guaiFENesin (Robitussin) solution 10 mL, Enteral Tube, q6h lacosamide (Vimpat) tablet 200 mg, Enteral Tube, BID levalbuterol (Xopenex) nebulizer solution 1.25 mg, Inhalation, q6h levETIRAcetam (Keppra) oral solution 2,000 mg, Enteral Tube, BID metoprolol tartrate IR (Lopressor) tablet 25 mg, Enteral Tube, BID polyethylene glycol 3350 (Miralax) packet 17 g, Enteral Tube, QDAY sodium chloride (Inhalant) 7 % nebulizer solution 4 mL, Inhalation, q6h tamsulosin (Flomax) capsule 0.4 mg, Enteral Tube, QDAY thiamine (Vitamin B-1) tablet 100 mg, Enteral Tube, QDAY ?? [COMPLETED] magnesium sulfate 4 g in 100 mL bolus, Intravenous, Once ?? CONTINUOUS MEDICATIONS: PRN MEDICATIONS: 0.9% NaCl injection 1-10 mL, Intracatheter, PRN acetaminophen (Tylenol) tablet 650 mg, Enteral Tube, q4h PRN glucagon (Glucagen) injection 1 mg, Subcutaneous, PRN glucose (Diabetic Use) (Dex4 Glucose) oral liquid, Oral, PRN glucose (Diabetic Use) oral gel, Oral, PRN ?? glucose chew tablet 4 tablet, Oral, PRN ?? Home MEDICATIONS: Data Review CBC: Recent Labs Component Name 12/14/22 0638 12/13/22 1118 12/12/22 1530 12/11/22 0402 WBC 16.9* 11.8* 9.2 7.2 HGB 11.9* 13.7 11.3* 13.2 PLTCOUNT 134* - 202 236 MCV 91.1 93.4 91.3 92.1 BMP: Recent Labs Component Name 12/14/22 0638 12/13/22 0146 12/12/22 0342 NA 135* 135* 139 POTASSIUM 4.2 4.7* 4.9* CL 104 103 105 CO2 23 25 27 BUN 10 12 11 CREATININE 0.47* 0.49* 0.51* EGFR >90 >90 >90 GLUCOSE 114 94 116* CALCIUM 9.9 9.9 9.9 ANIONGAP 12 12 12 Recent Labs Component Name 12/14/22 0638 12/13/22 0146 12/12/22 0342 PHOS 3.5 2.6* 2.7* MAGNESIUM 1.7 1.8 1.7 Hepatic: Recent Labs Component Name 12/14/22 0638 12/13/22 0146 12/12/22 0342 11/26/22 0310 11/25/22 0335 11/04/22 0633 10/09/22 1204 PROT - - - - 6.9 7.7 6.9 ALB 2.4* 2.5* 2.4* - 2.6* 2.9* 3.0* TBILI - - - - 0.2 0.2 0.1* AST - - - - 24 25 15 ALT - - - - 24 27 10 ALKPHOS - - - - 85 124 83 - = values in this interval not displayed. Coagulation: Recent Labs Component Name 12/13/22 0146 12/09/22 1211 PT 13.3 14.3 INR 1.0 1.1 TSH: Recent Labs Component Name 11/27/22 1542 TSH 1.790 Cardiac markers: Recent Labs Component Name 07/11/22 0040 07/01/22 1634 06/28/22 0141 06/27/22 2215 05/30/22 1750 03/08/22 1455 12/31/21 0412 CKTOTAL 49 42 - - - - 77 TROPONINI - - <0.010 <0.010 <0.010 - - - = values in this interval not displayed. UA: Recent Labs Component Name 11/25/22 0005 08/28/22 1516 07/04/22 0145 COLORU Yellow Yellow Yellow CLARITYU Clear Slt Cloudy* Clear LABSPEC 1.009 1.010 1.010 KETONES Negative Negative Negative BILIRUBINUR Negative Negative Negative BLOODU Negative Negative Negative NITRITE Negative Negative Negative LEUKOCYTE Negative 2+* 1+* WBCU - 21-50* 6-10* URINEBACT - Trace* Trace* YEASTBUDDING - - Few* Microbiology: Reviewed in [facility] Imaging: Reviewed in [facility] Assessment and Plan: Mojgan Tabor is 62 yo w/ pmhx of chronic resp failure w/ new hypoxia, dementia, CVA w/ left sided deficits, trach and GJ tube 12/14/22, zenker diverticulum s/p diverticulectomy 2022, PVD s/p L AKA, presenting from [facility] in [place] for bleeding from trach and AoC resp failure. #Intraoperative Ventricular Tachycardia - C/w telemetry -??Initiate amiodarone bolus with gtt if Vtach reoccurs per cards rec -??Maintain K>4, Mg>2, hgb >9 #Sinus Tachycardia #Hypertension #Premature Ventricular Contractions - CT PE negative, TSH wnl -??24h urine metanephrines WNL ??-?? metoprolol tartrate 25mg #Dysphagia s/p G to GJ conversion placement #Severe Protein Calorie Malnutrition -??Pt originally on TF @ facility using PEG tube - STACK YIELD ENGINEER consulted - seen patient multiple times over 2 years ==> failed swallow eval - 12/07 GES: abnormal, delayed gastric emptying with T1/2 >120 min. - 12/14 IR placed GJ tube instead of PEG -----PLAN: - Osmolite at 40 ml/hr, increasing by 10 ml/hr q6hrs to goal of 80ml/hr.?? - Assure patient is tolerating tube feeds for 24 hours before discharge to his facility. #Acute on Chronic Hypoxic Respiratory Failure s/p tracheostomy #Antrochoanal Polyp c/b bleeding -??Tracheostomy placed Jun 2022 during admission for aspiration pneumonia -??In senior living facility, 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 -??Surgical removal of bleeding polyp aborted due to Vtach run -??Extubated on 12/06 -----PLAN: -??SpO2 goal of 90% -??Continue SEAMAN guaifenesin, levalbuterol -??Hold SEAMAN scopolamine??patch -??f/u outpatient ENT #Hypoglycemia likely 2/2 to decreased caloric intake - Per RN at bedside, patient BG has been running 70-80 -----PLAN: - Resumed TF in setting of GJ placement - BG checks q4 hours ? #QTc prolongation -??Baseline 455,??prolonged to 526, most recent EKG 11/29 438 -----PLAN: -??Avoid QT-prolonging medications ?? #PVD s/p L AKA -??On SEAMAN atorvastatin 40mg -----PLAN: - restart ASA 81 ?? #Pain #Back Pain -----PLAN - Frequent repositioning - Tylenol 650mg [id number] PRN ?? #Concern for Ventilator-Associated Pneumonia - resolved #Leukocytosis - WBC 16.9. Afebrile. No purulent discharge on trach. Likely stress leukocytosis - Sputum Cx positive for pseudomonas and acinotobacter -----PLAN: - Cefepime course completed 12/07/22 ?? #Tracheal Bleeding - 2/2 antrochoanal polyp - Hgb??dropped 12.5->10.7, previously stable -----PLAN: - May resume chemical dvt and ASA if bleeding stops -??Trend CBC's daily -??Keep tracheostomy cuff inflated to prevent aspiration of blood -??ENT managing??epistat; posterior balloon deflated, anterior balloon partially deflated -??Afrin PRN -??ENT??to follow outpatient ?? #History of CVA c/b Left Sided Deficits #Dementia #Seizure Disorder -??On SEAMAN atorvastatin 40mg, Depakote 500mg q6h, Clobazam 20mg BID, ??Lacosamide 200mg BID, Midazolam 5mg nasal spray PRN -----PLAN: -??SEAMAN ASA??were held??due to??recent??bleeding, may resume if no epistaxis/nasal polyp bleeding ?? #BPH - On SEAMAN tamsulosin 0.4mg #Disposition: Inpatient. If patient tolerates GJ tube feeds for 24 hrs, can discharge back to [facility]. Likely d/c 12/16. Lines: Trach collar, Jensen, PEG tube, PIV Prophylaxis: GI - Miralax DVT - SCDs, Heparin Nutrition: DIET NPO Except: SIPS WITH MEDS DIET TUBE FEEDING CONTINUOUS Code Status: Full Code Consults: IP CONSULT TO OTOLARYNGOLOGY IP CONSULT TO NUTRITIONAL SERV IP CONSULT TO RESPIRATORY IP CONSULT TO RADIOLOGY TEACHER IP CONSULT TO NUTRITIONAL SERV IP CONSULT TO NUTRITIONAL SERV IP CONSULT TO GENERAL SURGERY IP CONSULT TO INFECTIOUS DISEASES IP CONSULT TO INTERVENTIONAL RADIOLOGY IP CONSULT TO GASTROENTEROLOGY This patient will be discussed with the Attending Dr. Julius Tucker, Internal Medicine, PGY-1 12/14/2022 6:15 PM Associated attestation - Feliciano Madrid MD - 12/15/2022 6:04 PM CDT Attending Physician Attestation I have seen and examined the patient with the resident and I agree with the findings and plan of care as documented by Dr. Conti. Delayed gastric emptying (POA: Yes) History of CVA (cerebrovascular accident) (POA: Yes) Seizure disorder (CMS/HCC) (POA: Yes) Severe protein-calorie malnutrition (CMS/HCC) (POA: Yes) Chronic respiratory failure with hypoxia (CMS/HCC) (POA: Yes) Dementia, vascular (CMS/HCC) (POA: Yes) Nasal polyp (POA: Yes) Acute blood loss anemia (POA: Yes) PEG (percutaneous endoscopic gastrostomy) status (CMS/HCC) (POA: Yes) Tracheostomy in place (CMS/HCC) (POA: Yes) Date of Service: 12/15/2022 Feliciano Madrid MD * Apple Lovell RN - 12/15/2022 10:30 AM CDT Problem: Skin Integrity Goal: Skin integrity is maintained or improved Outcome: Progressing Problem: Nutrient: Malnutrition Goal: Enteral/parenteral nutrition prescription will be consistent with estimated needs Outcome: Progressing * Ramon Lopez MD - 12/14/2022 5:01 PM CDT [facility] INTERNAL MEDICINE PROGRESS NOTE Patient: Mojgan Tabor Sex: male Age: [age] year old Date of : 1960 Date of Admission: 11/24/2022 Date: 12/14/2022 LOS: 19 SUBJECTIVE Interval History: Overnight Mr. Tabor denied feeling febrile, palpitations, worsening breathing but did have a slightincrease to his oxygen requirement although it is consistently documented with SPO2 in high 90s to 100s. Hospital Course: Mojgan Tabor??with??62 M??PMH of??chronic resp failure with new hypoxia, stroke, dementia, trach and PEG tube, and seizures??was admitted to the ICU following an ENT procedure??complicated by??intraoperative ventricular tachycardia.??The surgery was aborted due to Vtach run.??The patient spontaneously converted to sinus rhythm in the OR after 2-3 minutes. His course has been complicated by sinus tachycardia to the 140's and uncontrolled hypertension, which has improved with IV esmolol.??Switched from esmolol to metoprolol tartrate per cards recc.??Course complicated by presumed ventilator-associated pneumonia, treated with??Cefepime??that completed today 12/07/2022.??Extubated on 12/06 and has r emained on HHF/trach collar. OBJECTIVE Vital Signs: Vitals: 12/14/22 1545 12/14/22 1550 12/14/22 1605 12/14/22 1610 BP: 153/98 151/92 149/98 136/99 Pulse: 83 83 85 80 Resp: 14 15 17 14 Temp: SpO2: 100% 100% 100% 100% Weight: Height: Temp Min: 96.8 ??F (36 ??C) Max: 100.4 ??F (38 ??C), Pulse Min: 61 Max: 154, Resp Min: 0 Max: 39, BP Min: 80/54 Max: 206/105 Intake & Output: In: 740.7 [I.V.:279.7] Out: 2150 [Urine:2150] Physical Exam Constitutional: Appearance: Normal appearance. Comments: thin HENT: Head: Normocephalic and atraumatic. Right Ear: External ear normal. Left Ear: External ear normal. Nose: Nose normal. Mouth/Throat: Mouth: Mucous membranes are moist. Pharynx: Oropharynx is clear. Eyes: Extraocular Movements: Extraocular movements intact. Conjunctiva/sclera: Conjunctivae normal. Pupils: Pupils are equal, round, and reactive to light. Cardiovascular: Rate and Rhythm: Normal rate and regular rhythm. Pulses: Normal pulses. Heart sounds: Normal heart sounds. Pulmonary: Effort: Pulmonary effort is normal. Breath sounds: Wheezing present. Abdominal: General: Abdomen is flat. Bowel sounds are normal. Palpations: Abdomen is soft. Tenderness: There is no abdominal tenderness. Musculoskeletal: General: Normal range of motion. Cervical back: Normal range of motion and neck supple. Skin: General: Skin is warm and dry. Neurological: General: No focal deficit present. Mental Status: He is alert. Mental status is at baseline. Psychiatric: Mood and Affect: Mood normal. Behavior: Behavior normal. Current Medications: Scheduled: ??? 0.9% NaCl 3 mL Intracatheter q8h ??? atorvastatin 40 mg Enteral Tube AT BEDTIME ??? cloBAZam 20 mg Enteral Tube BID ??? divalproex sprinkle 500 mg Enteral Tube q6h ??? folic acid 1 mg Enteral Tube QDAY ??? guaiFENesin 10 mL Enteral Tube q6h ??? lacosamide 200 mg Enteral Tube BID ??? levalbuterol 1.25 mg Inhalation q6h ??? levETIRAcetam 2,000 mg Enteral Tube BID ??? metoprolol tartrate IR 25 mg Enteral Tube BID ??? polyethylene glycol 3350 17 g Enteral Tube QDAY ??? sodium chloride (Inhalant) 4 mL Inhalation q6h ??? tamsulosin 0.4 mg Enteral Tube QDAY ??? thiamine 100 mg Enteral Tube QDAY Continuous: PRN: ??? SALINE LOCK, INSERT AND MAINTAIN AND 0.9% NaCl AND 0.9% NaCl ??? acetaminophen ??? glucagon ??? glucose (Diabetic Use) ??? glucose (Diabetic Use) gel ??? glucose chew tab Significant Lab Results: reviewed Microbiology: No new Imaging & Studies: CXR Tracheostomy tube terminates in the midthoracic trachea. The patient is slightly rotated to the right. Atelectasis of the mid and lower lobe of the right lung. Suggestion of right-sided pleural effusion. No acute consolidation or air space opacities seen in the left side. No pneumothorax is identified. The cardiomediastinal silhouette is partially obscured. No acute osseous abnormality. ASSESSMENT & PLAN Delayed gastric emptying (POA: Yes) History of CVA (cerebrovascular accident) (POA: Yes) Seizure disorder (CMS/HCC) (POA: Yes) Severe protein-calorie malnutrition (CMS/HCC) (POA: Yes) Chronic respiratory failure with hypoxia (CMS/HCC) (POA: Yes) Dementia, vascular (CMS/HCC) (POA: Yes) Nasal polyp (POA: Yes) Acute blood loss anemia (POA: Yes) PEG (percutaneous endoscopic gastrostomy) status (CMS/HCC) (POA: Yes) Tracheostomy in place (CMS/HCC) (POA: Yes) Mojgan Tabor, 62 y.o. male, remains in the hospital for GJ tube placement and pending feeding trial for replacement at his care facility. ?? #Dysphagia s/p PEG placement #Severe Protein Calorie Malnutrition -??Tube feeds via PEG for nutrition at home - STACK YIELD ENGINEER consulted - over the last 2 years they have seen the patient several times and failed swallowstudy - 12/07 GES: abnormal, delayed gastric emptying with T1/2 >120 min. - 12/10 GI replaced PEG tube -----PLAN: - 12/13 IR GJ Tube placement - After GJ tube placement??resume tube feeds with Osmolite at 40 ml/hr, increasing by 10 ml/hr q6hrs??to goal of 80ml/hr.?? - Assure patient is tolerating tube feeds??for 24 hours??before discharge??to his facility. #Concern for Ventilator-Associated Pneumonia (resolved) #concern for aspiration #leukocytosis -??Patient developed low-grade fever on 11/28/22 -??Heavy pseudomonas growth and acinetobacter??in sputum cx - ddx /2 to demargination in setting of stress from lack of nutrition vs infectious process -----PLAN: - ID??rec treatment with cefepime, completed??12/07/2022?? - continue fluid support w/ dextrose - repeat CXR - if becomes febrile, consider initiation of abx and blood ctx, obtain ua #Intraoperative Ventricular Tachycardia -??Noted during ENT procedure on 11/26 with spontaneous conversion to sinus after 2-3 minutes -??Cardiology consult recommended no acute intervention -??Troponin within normal limits -----PLAN: - Continue telemetry -??Initiate amiodarone bolus with gtt if Vtach reoccurs -??Maintain K>4, Mg>2, hgb >9 ?? #Sinus Tachycardia #Hypertension #Premature Ventricular Contractions -??Heart rate and blood pressure stable on metoprolol tartrate 25mg -??Patient has HTN at baseline; was not on any SEAMAN meds - CT PE negative, TSH wnl -??24h urine metanephrines WNL Plan: -??Cardiology consult: totrate BP with gtts and transition with oral antihypertensives - metop tart 25 BID for rate control ?? #QTc prolongation -??Baseline 455,??prolonged to 526, most recent EKG 11/29 438 -----PLAN: -??Continue to monitor -??Avoid QT-prolonging medications ?? #PVD s/p L AKA -??On SEAMAN atorvastatin 40mg -??May resume??ASA??if no bleeding -----PLAN: Restart ASA post IR procedure.? #Acute on Chronic Hypoxic Respiratory Failure s/p tracheostomy #Antrochoanal Polyp c/b bleeding -??Tracheostomy placed Jun 2022 during admission for aspiration pneumonia -??In senior living facility, 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 -??Surgical removal of bleeding polyp aborted due to Vtach run -??Epistat in place to control bleeding; posterior balloon deflated -??Extubated on 12/06 -----PLAN: -??SpO2 goal of 90% -??Continue SEAMAN guaifenesin, levalbuterol -??Hold SEAMAN scopolamine??patch -??f/u outpatient ENT ?? #Pain #Back Pain - Patient complains of back pain - Upon repositioning, states pain is improved -----PLAN: - Pain control - Frequent repositioning - Tylenol 650mg [id number] PRN - Adjust pain medication as necessary ?? #Tracheal Bleeding - 2/2 antrochoanal polyp - Hgb??dropped 12.5->10.7, previously stable - HgB trending up, may resume??aspirin and chemical DVT ppx??while pt remains without bleeding -----PLAN: -??Heparin 5000 units,??DVT ppx -??Trend CBC's daily -??Keep tracheostomy cuff inflated to prevent aspiration of blood -??ENT managing??epistat; posterior balloon deflated, anterior balloon partially deflated -??Afrin PRN -??ENT??to follow outpatient ?? #History of CVA c/b Left Sided Deficits #Dementia #Seizure Disorder -??On SEAMAN atorvastatin 40mg, Depakote 500mg q6h, Clobazam 20mg BID, ??Lacosamide 200mg BID, Midazolam 5mg nasal spray PRN -----PLAN: -??SEAMAN ASA??were held??due to??recent??bleeding, may resume if no epistaxis/nasal polyp bleeding Plan: - resuming ASA, will restart 12/13??after procedure - home atorva 40 ?? #BPH -??On SEAMAN tamsulosin 0.4mg Code: FULL Diet: NPO, resume TF when ok per IR Electrolytes: Replete PRN PPx: scd, heparin Access: PIV x1 Dispo: Continue admission to medicine The above assessment and plan will be discussed with the attending. This note is not final until attested by attending physician. Ramon Lopez MD Internal Medicine Resident [facility] 12/14/2022 5:01 PM Associated attestation - Feliciano Madrid MD - 12/15/2022 9:35 AM CDT Attending Physician Attestation I have seen and examined the patient with the resident and I agree with the findings and plan of care as documented by Dr. Lopez. Delayed gastric emptying (POA: Yes) History of CVA (cerebrovascular accident) (POA: Yes) Seizure disorder (CMS/HCC) (POA: Yes) Severe protein-calorie malnutrition (CMS/HCC) (POA: Yes) Chronic respiratory failure with hypoxia (CMS/HCC) (POA: Yes) Dementia, vascular (CMS/HCC) (POA: Yes) Nasal polyp (POA: Yes) Acute blood loss anemia (POA: Yes) PEG (percutaneous endoscopic gastrostomy) status (CMS/HCC) (POA: Yes) Tracheostomy in place (CMS/HCC) (POA: Yes) Date of Service: 12/14/2022 Feliciano Madrid MD * Tiffani Moreno RN - 12/14/2022 4:07 PM CDT Interventional Radiology Nursing - End Procedure Note Procedure start time: 1540 hours Procedure end time: 1601 hours Contrast: 20 mL of Isovue-300 Fluoroscopy time: 2.4 min * Krystal Stock MD - 12/14/2022 3:01 PM CDT Pre-Sedation Evaluation: Procedure: Image guided G to GJ conversion. Level: Moderate with Versed and Fentanyl ASA: III. Patient with severe systemic disease Mallampati: II (soft palate, uvula, fauces visible) Fasting status: Regular Meal > 8 hours Informed consent obtained? Yes Pre-procedure vitals reviewed? Yes History of prior adverse reaction to sedation or anesthesia? No Based on the above information, the patient is an appropriate candidate for the level of sedation planned. Evaluated by: KRYSTAL STOCK MD 12/14/2022 3:01 PM * Apple Lovell RN - 12/14/2022 12:04 PM CDT Problem: Fall Risk Goal: Fall risk and fall related injury risk are minimized (interventions related to the fall risk can be found in the flowsheet documentation) Outcome: Progressing Problem: Skin Integrity Goal: Skin integrity is maintained or improved Outcome: Progressing Problem: Nutrient: Malnutrition Goal: Enteral/parenteral nutrition prescription will be consistent with estimated needs Outcome: Progressing * Mariajose Estrada RN - 12/14/2022 6:44 AM CDT Spoke with human resources intern A, Dirk Ram, for clarification on TF. ordered to keep holding TF for possible procedure in the morning, also, to give meds as ordered through PEG tube. Will continue to monitor. * Mariajose Estrada RN - 12/14/2022 4:27 AM CDT Problem: Fall Risk Goal: Fall [...] engage in desired activity. Outcome: Progressing Problem: Mechanical Ventilation Goal: Patent airway Outcome: Progressing Goal: Tracheostomy will be managed safely Outcome: Progressing * Rupa Coyle RN - 12/13/2022 4:55 PM CDT Problem: Fall Risk Goal: Fall risk and fall related injury risk are minimized (interventions related to the fall risk can be found in the flowsheet documentation) Outcome: Progressing Problem: Skin Integrity Goal: Skin integrity is maintained or improved Outcome: Progressing Problem: Nutrient: Malnutrition Goal: Enteral/parenteral nutrition prescription will be consistent with estimated needs Outcome: Progressing Problem: Pain/Discomfort Goal: Patient exhibits reduced pain/discomfort as evidenced by pain scores Outcome: Progressing Goal: Patient uses pharmacological and non-pharmacological pain management strategies. Outcome: Progressing Goal: Patient verbalizes acceptable level of pain relief and ability to engage in desired activity. Outcome: Progressing Problem: Mechanical Ventilation Goal: Patent airway Outcome: Progressing Goal: Tracheostomy will be managed safely Outcome: Progressing * Rupa Coyle RN - 12/13/2022 3:28 PM CDT Pt still waiting to go to IR. I have x2 to find out approx time of procedure. 2nd time I was able to get a hold of someone, and they were still unsure of time, or if pt would even get in today. I will call primary team to make them aware. 1655: continue to hold TF for now * Gracia Hess - 12/13/2022 10:48 AM CDT SW newly assigned and assuming disposition and or placement from previous SW's case load. Patient is from [facility] ([phone]) SW called Corey ariasy (otpion 2) to make aware that patient should be ready soon, message was left. Per ASHWIN note 12-09-22 pending GJ tube for nutrition. On 12-10-22 PEG tube exchange did. UPDATE: Angela called back to say that patient will go back into his room #506. RN is to call RN: [phone] FAX: [phone] CLARITA Finch Care Coordination Instructor Of Sociology * Rupa Coyle RN - 12/13/2022 8:44 AM CDT Lab unable to obtain labs * Clover Tucker DO - 12/13/2022 8:29 AM CDT Internal Medicine Progress Note Patient Name: Mojgan Tabor (62 year old) Room Number: 613/01 Hospital Day: 18 Admit Date: 11/24/2022 Subjective: Interval history: Patient seen and examined. No acute events overnight. Upon entering room, bed is elevated, patient is uncovered. IV supplies at bedside. Patient indicates that he did not sleep well, states he had back pain. Patient states he is cold. Examiner helps cover him. Hospital course: Mojgan Tabor??with??62 M??PMH of??chronic resp failure with new hypoxia, stroke, dementia, trach and PEG tube, and seizures??was admitted to the ICU following an ENT procedure??complicated by??intraoperative ventricular tachycardia.??The surgery was aborted due to Vtach run.??The patient spontaneously converted to sinus rhythm in the OR after 2-3 minutes. His course has been complicated by sinus tachycardia to the 140's and uncontrolled hypertension, which has improved with IV esmolol.??Switched from esmolol to metoprolol tartrate per cards recc.??Course complicated by presumed ventilator-associated pneumonia, treated with??Cefepime??that completed today 12/07/2022.??Extubated on 12/06 and has r emained on HHF/trach collar. ?? 12/07??patient was transferred to . Gastric emptying study??was abnormal, with T1/2 >120 minutes.??Nutrition was consulted, and tube feeds were resumed per their recommendations. 12/08??IR was consulted for GJ tube placement.??12/09 GI consulted to switch PEG tube before IR procedure.??PEG tube placed 12/10 without difficulty. Patient awaiting IR procedure, anticipating 12/13.??Patient will require 24 hour trial of GJ tube before he can return to his facility. Patient remains stable at this time. Objective: T: 97.6 ??F (36.4 ??C) [Temp Min: 97.6 ??F (36.4 ??C) Max: 98.5 ??F (36.9 ??C)] HR: 87[Pulse Min: 83 Max: 96] BP: 131/87[BP Min: 108/73 Max: 131/87] MAP: 101[MAP (mmHg) Min: 85 Max: 101] RR: 20[Resp Min: 16 Max: 20] Sat: 97 %[SpO2 Min: 94 % Max: 99 %] Date 12/12/22699 - 12/13/22 0612/13/22699 - 12/14/22658 Shift 8642-1499 4018-9623 24 Hour Total 1968-1033 2922-9810 24 Hour Total INTAKE Other 300 175 475 Enteral 700 286 986 Shift Total(mL/kg) 1000(14.1) 461(6.5) 1461(20.6) OUTPUT Urine(mL/kg/hr) 550(0.6) 450(0.5) 1000(0.6) Drains 0 0 Shift Total(mL/kg) 550(7.8) 450(6.4) 1000(14.1) NET 450 11 461 Weight (kg) 70.8 70.8 70.8 70.8 70.8 70.8 Physical Exam: General - NAD, conversational, A&O x4 HEENT - NC/AT, PERRL, EOMI, MMM, clear conjunctivae Neck - Trach in place. Pulmonary - CTAB, no crackles/wheezes/rale/rhonchi. Cardiac - RRR, no murmurs appreciated. No JVD. Capillary refill normal. 3/4 radial and 3/4 DP pulses b/l Abdomen - Rigid, NT/ND, +BS, no hepatosplenomegaly, PEG tube in place Musculoskeletal - Difficulty moving extremities, stiff upon examiner movement. Extremities - LLE with below knee amputation. No clubbing, no cyanosis, no edema Skin - Seborrheic Dermatitis on scalp. No rashes, lesions, or jaundice noted Neurologic - CN II-XII grossly intact. Largely nonverbal, can follow simple verbal commands. No focal deficits Psych - Appropriate mood and affect Medications ?? SCHEDULED MEDICATIONS: ?? 0.9% NaCl injection 3 mL, Intracatheter, q8h ?? atorvastatin (Lipitor) tablet 40 mg, Enteral Tube, AT BEDTIME ?? cloBAZam (Onfi) tablet 20 mg, Enteral Tube, BID ?? divalproex sprinkle (Depakote Sprinkle) capsule 500 mg, Enteral Tube, q6h ?? folic acid (Folvite) tablet 1 mg, Enteral Tube, QDAY ?? guaiFENesin (Robitussin) solution 10 mL, Enteral Tube, q6h ?? lacosamide (Vimpat) tablet 200 mg, Enteral Tube, BID ?? levalbuterol (Xopenex) nebulizer solution 1.25 mg, Inhalation, q6h ?? levETIRAcetam (Keppra) oral solution 2,000 mg, Enteral Tube, BID ?? metoprolol tartrate IR (Lopressor) tablet 25 mg, Enteral Tube, BID ?? polyethylene glycol 3350 (Miralax) packet 17 g, Enteral Tube, QDAY ?? sodium chloride (Inhalant) 7 % nebulizer solution 4 mL, Inhalation, q6h ?? sodium phosphate 30 mmol IVPB 260 mL, Intravenous, Once ?? tamsulosin (Flomax) capsule 0.4 mg, Enteral Tube, QDAY ?? thiamine (Vitamin B-1) tablet 100 mg, Enteral Tube, QDAY ?? [COMPLETED] heparin injection 5,000 Units, Subcutaneous, Once ?? CONTINUOUS MEDICATIONS: ?? PRN MEDICATIONS: ?? 0.9% NaCl injection 1-10 mL, Intracatheter, PRN ?? acetaminophen (Tylenol) tablet 650 mg, Enteral Tube, q4h PRN ?? glucagon (Glucagen) injection 1 mg, Subcutaneous, PRN ?? glucose (Diabetic Use) (Dex4 Glucose) oral liquid, Oral, PRN ?? glucose (Diabetic Use) oral gel, Oral, PRN ?? glucose chew tablet 4 tablet, Oral, PRN ?? Home MEDICATIONS: Data Review CBC: Recent Labs Component Name 12/12/22 1530 12/11/22 0402 12/10/22 0344 WBC 9.2 7.2 6.9 HGB 11.3* 13.2 13.0 PLTCOUNT 202 236 266 MCV 91.3 92.1 92.4 BMP: Recent Labs Component Name 12/13/22 0146 12/12/22 0342 12/11/22 0402 NA 135* 139 138 POTASSIUM 4.7* 4.9* 4.1 CL 103 105 104 CO2 25 27 25 BUN 12 11 11 CREATININE 0.49* 0.51* 0.50* EGFR >90 >90 >90 GLUCOSE 94 116* 81 CALCIUM 9.9 9.9 10.5* ANIONGAP 12 12 13 Recent Labs Component Name 12/13/22 0146 12/12/22 0342 12/11/22 0402 PHOS 2.6* 2.7* 2.9 MAGNESIUM 1.8 1.7 1.7 Hepatic: Recent Labs Component Name 12/13/22 0146 12/12/22 0342 12/11/22 0402 11/26/22 0310 11/25/22 0335 11/04/22 0633 10/09/22 1204 PROT - - - - 6.9 7.7 6.9 ALB 2.5* 2.4* 2.6* - 2.6* 2.9* 3.0* TBILI - - - - 0.2 0.2 0.1* AST - - - - 24 25 15 ALT - - - - 24 27 10 ALKPHOS - - - - 85 124 83 - = values in this interval not displayed. Coagulation: Recent Labs Component Name 12/13/22 0146 12/09/22 1211 PT 13.3 14.3 INR 1.0 1.1 TSH: Recent Labs Component Name 11/27/22 1542 TSH 1.790 Cardiac markers: Recent Labs Component Name 07/11/22 0040 07/01/22 1634 06/28/22 0141 06/27/22 2215 05/30/22 1750 03/08/22 1455 12/31/21 0412 CKTOTAL 49 42 - - - - 77 TROPONINI - - <0.010 <0.010 <0.010 - - - = values in this interval not displayed. UA: Recent Labs Component Name 11/25/22 0005 08/28/22 1516 07/04/22 0145 COLORU Yellow Yellow Yellow CLARITYU Clear Slt Cloudy* Clear LABSPEC 1.009 1.010 1.010 KETONES Negative Negative Negative BILIRUBINUR Negative Negative Negative BLOODU Negative Negative Negative NITRITE Negative Negative Negative LEUKOCYTE Negative 2+* 1+* WBCU - 21-50* 6-10* URINEBACT - Trace* Trace* YEASTBUDDING - - Few* Microbiology: Reviewed in [facility] Imaging: Reviewed in [facility] Assessment and Plan: Mojgan Tabor, 62 y.o. male, remains in the hospital for GJ tube placement and pending feeding trial for replacement at his care facility. #Dysphagia s/p PEG placement #Severe Protein Calorie Malnutrition -??Tube feeds via PEG for nutrition at home - STACK YIELD ENGINEER consulted - over the last 2 years they have seen the patient several times and failed swallowstudy - 12/07 GES: abnormal, delayed gastric emptying with T1/2 >120 min. - 12/10 GI replaced PEG tube -----PLAN: - 12/13 IR GJ Tube placement - After GJ tube placement??resume tube feeds with Osmolite at 40 ml/hr, increasing by 10 ml/hr q6hrs to goal of 80ml/hr.?? - Assure patient is tolerating tube feeds for 24 hours before discharge to his facility. ?? #Hypoglycemia - Per RN at bedside, patient BG has been running 70-80 - Patient has been NPO with minimal tube feeds due to scheduling of procedure -----PLAN: -??Pending??IR??placing GJ tube 12/13?? - D5 infusion 50 ml/hr??when not receiving tube feeds - BG checks q4 hours - Resume tube feeds as soon as possible ?? #Intraoperative Ventricular Tachycardia -??Noted during ENT procedure on 11/26 with spontaneous conversion to sinus after 2-3 minutes -??Cardiology consult recommended no acute intervention -??Troponin within normal limits -----PLAN: - Continue telemetry -??Initiate amiodarone bolus with gtt if Vtach reoccurs -??Maintain K>4, Mg>2, hgb >9 ?? #Sinus Tachycardia #Hypertension #Premature Ventricular Contractions -??Heart rate and blood pressure stable on metoprolol tartrate 25mg -??Patient has HTN at baseline; was not on any SEAMAN meds - CT PE negative, TSH wnl -??24h urine metanephrines WNL -??Cardiology consult: consider workup for pheochromocytoma, titrate BP with gtts and transition with oral antihypertensives ?? #QTc prolongation -??Baseline 455,??prolonged to 526, most recent EKG 11/29 438 -----PLAN: -??Continue to monitor -??Avoid QT-prolonging medications ?? #PVD s/p L AKA -??On SEAMAN atorvastatin 40mg -??May resume??ASA??if no bleeding -----PLAN: - Will consider restarting??ASA??12/13??if tolerates IR procedure.? #Acute on Chronic Hypoxic Respiratory Failure s/p tracheostomy #Antrochoanal Polyp c/b bleeding -??Tracheostomy placed Jun 2022 during admission for aspiration pneumonia -??In [facility] [place], 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 -??Surgical removal of bleeding polyp aborted due to Vtach run -??Epistat in place to control bleeding; posterior balloon deflated -??Extubated on 12/06 -----PLAN: -??SpO2 goal of 90% -??Continue SEAMAN guaifenesin, levalbuterol -??Hold SEAMAN scopolamine??patch -??f/u outpatient ENT ?? #Pain #Back Pain - Patient complains of back pain - Upon repositioning, states pain is improved -----PLAN: - Pain control - Frequent repositioning - Tylenol 650mg [id number] PRN - Adjust pain medication as necessary ?? #Concern for Ventilator-Associated Pneumonia -??Patient developed low-grade fever on 11/28/22 -??Heavy pseudomonas growth and acinetobacter??in sputum cx -----PLAN: - ID??rec treatment with cefepime, completed??12/07/2022 ?? #Tracheal Bleeding - 07/01 antrochoanal polyp - Hgb??dropped 12.5->10.7, previously stable - HgB trending up, may resume??aspirin and chemical DVT ppx??while pt remains without bleeding -----PLAN: -??Heparin 5000 units, DVT ppx -??Trend CBC's daily -??Keep tracheostomy cuff inflated to prevent aspiration of blood -??ENT managing??epistat; posterior balloon deflated, anterior balloon partially deflated -??Afrin PRN -??ENT??to follow outpatient ?? #History of CVA c/b Left Sided Deficits #Dementia #Seizure Disorder -??On SEAMAN atorvastatin 40mg, Depakote 500mg q6h, Clobazam 20mg BID, ??Lacosamide 200mg BID, Midazolam 5mg nasal spray PRN -----PLAN: -??SEAMAN ASA??were held??due to??recent??bleeding, may resume if no epistaxis/nasal polyp bleeding - 12/11: discussed resuming ASA, will restart 12/13??after procedure ?? #BPH - On SEAMAN tamsulosin 0.4mg Lines: Trach collar, Jensen, PEG tube, PIV Prophylaxis: GI - Miralax DVT - SCDs, Heparin Nutrition: DIET NPO Except: SIPS WITH MEDS Code Status: Full Code Consults: IP CONSULT TO OTOLARYNGOLOGY IP CONSULT TO NUTRITIONAL SERV IP CONSULT TO RESPIRATORY IP CONSULT TO RADIOLOGY TEACHER IP CONSULT TO NUTRITIONAL SERV IP CONSULT TO NUTRITIONAL SERV IP CONSULT TO GENERAL SURGERY IP CONSULT TO INFECTIOUS DISEASES IP CONSULT TO INTERVENTIONAL RADIOLOGY IP CONSULT TO GASTROENTEROLOGY This patient will be discussed with the Attending Dr. Julius Tucker, DO Internal Medicine, PGY-1 12/13/2022 8:29 AM Associated attestation - Feliciano Madrid MD - 12/13/2022 3:23 PM CDT Attending Physician Attestation I have seen and examined the patient with the resident and I agree with the findings and plan of care as documented by Dr. Tucker. Delayed gastric emptying (POA: Yes) History of CVA (cerebrovascular accident) (POA: Yes) Seizure disorder (CMS/HCC) (POA: Yes) Severe protein-calorie malnutrition (CMS/HCC) (POA: Yes) Chronic respiratory failure with hypoxia (CMS/HCC) (POA: Yes) Dementia, vascular (CMS/HCC) (POA: Yes) Nasal polyp (POA: Yes) Acute blood loss anemia (POA: Yes) PEG (percutaneous endoscopic gastrostomy) status (CMS/HCC) (POA: Yes) Tracheostomy in place (CMS/HCC) (POA: Yes) Date of Service: 12/13/2022 Feliciano Madrid MD * Rupa Coyle RN - 12/13/2022 8:05 AM CDT Attempted IV x 2 w/o success. Charge nurse made aware. * Anna Shine RN - 12/12/2022 10:41 PM CDT Problem: Fall Risk Goal: Fall [...] engage in desired activity. Outcome: Progressing * Ck Peguero DO - 12/12/2022 2:20 PM CDT Gastroenterology Brief Note Re-examined tube site. Tube remains in the same position as the time of placement. Lower aspect of external bumper at 4cm. Zip tie remains in place securing external bumper. Tube is freely rotating without signs of infection. Ck Peguero DO Gastroenterology & Hepatology Fellow Division of Gastroenterology and Hepatology [facility] * Rupa Coyle RN - 12/12/2022 10:50 AM CDT Problem: Fall Risk Goal: Fall risk and fall related injury risk are minimized (interventions related to the fall risk can be found in the flowsheet documentation) Outcome: Progressing Problem: Skin Integrity Goal: Skin integrity is maintained or improved Outcome: Progressing Problem: Nutrient: Malnutrition Goal: Enteral/parenteral nutrition prescription will be consistent with estimated needs Outcome: Progressing Problem: Pain/Discomfort Goal: Patient exhibits reduced pain/discomfort as evidenced by pain scores Outcome: Progressing Goal: Patient uses pharmacological and non-pharmacological pain management strategies. Outcome: Progressing Goal: Patient verbalizes acceptable level of pain relief and ability to engage in desired activity. Outcome: Progressing * Clover Tucker DO - 12/12/2022 7:24 AM CDT Internal Medicine Progress Note Patient Name: Mojgan Tabor (62 year old) Room Number: 613/01 Hospital Day: 17 Admit Date: 11/24/2022 Subjective: Interval history: Patient seen and examined. No acute events overnight. Upon interview, patient states he is having back pain. States he did not sleep well because of back pain. Endorses chest pain, SOB, fever/chills,and nausea. Had a BM last night. Upon re-positioning, states his pain feels better. Hospital course: Mojgan Tabor??with??62 M??PMH of??chronic resp failure with new hypoxia, stroke, dementia, trach and PEG tube, and seizures??was admitted to the ICU following an ENT procedure??complicated by??intraoperative ventricular tachycardia.??The surgery was aborted due to Vtach run.??The patient spontaneously converted to sinus rhythm in the OR after 2-3 minutes. His course has been complicated by sinus tachycardia to the 140's and uncontrolled hypertension, which has improved with IV esmolol.??Switched from esmolol to metoprolol tartrate per cards recc.??Course complicated by presumed ventilator-associated pneumonia, treated with??Cefepime??that completed today 12/07/2022.??Extubated on 12/06 and has r emained on HHF/trach collar. ?? 12/07??patient was transferred to . Gastric emptying study??was abnormal, with T1/2 >120 minutes.??Nutrition was consulted, and tube feeds were resumed per their recommendations. 12/08??IR was consulted for GJ tube placement.??12/09 GI consulted to switch PEG tube before IR procedure. PEG tube placed 12/10 without difficulty. Patient awaiting IR procedure, anticipating 12/13.??Patient remains stable at this time. Objective: T: 98.8 ??F (37.1 ??C) [Temp Min: 97.1 ??F (36.2 ??C) Max: 98.8 ??F (37.1 ??C)] HR: 82[Pulse Min: 73 Max: 88] BP: 121/82[BP Min: 98/64 Max: 136/81] MAP: 96[MAP (mmHg) Min: 76 Max: 96] RR: 17[Resp Min: 17 Max: 19] Sat: 96 %[SpO2 Min: 95 % Max: 99 %] Date 12/11/22699 - 12/12/22 0612/12/22699 - 12/13/22 0659 Shift 6727-4133 0739-2031 24 Hour Total 4915-4513 4169-4435 24 Hour Total INTAKE Other 300 300 Tube 601 601 Enteral 574 112 4586 Shift Total(mL/kg) 1457(20.6) 1240(17.5) 2697(38.1) OUTPUT Urine(mL/kg/hr) 1100(1.3) 1100(1.3) 2200(1.3) Shift Total(mL/kg) 1100(15.5) 1100(15.5) 2200(31.1) NET 357 140 497 Weight (kg) 70.8 70.8 70.8 70.8 70.8 70.8 Physical Exam: General - NAD, conversational, A&O x4 HEENT - NC/AT, PERRL, EOMI, MMM, clear conjunctivae Neck - Trach in place. Pulmonary - CTAB, no crackles/wheezes/rale/rhonchi. Cardiac - RRR, no murmurs appreciated. No JVD. Capillary refill normal. 3/4 radial and 3/4 DP pulses b/l Abdomen - Rigid, NT/ND, +BS, no hepatosplenomegaly Musculoskeletal - Difficulty moving extremities, stiff upon examiner movement. Extremities - LLE with below knee amputation. No clubbing, no cyanosis, no edema Skin - Seborrheic Dermatitis on scalp. No rashes, lesions, or jaundice noted Neurologic - CN II-XII grossly intact. Largely nonverbal, but can follow??simple??verbal commands. Residual weakness/stiffness. Psych - Appropriate mood and affect Medications ?? SCHEDULED MEDICATIONS: ?? 0.9% NaCl injection 3 mL, Intracatheter, q8h ?? atorvastatin (Lipitor) tablet 40 mg, Enteral Tube, AT BEDTIME ?? cloBAZam (Onfi) tablet 20 mg, Enteral Tube, BID ?? divalproex sprinkle (Depakote Sprinkle) capsule 500 mg, Enteral Tube, q6h ?? folic acid (Folvite) tablet 1 mg, Enteral Tube, QDAY ?? guaiFENesin (Robitussin) solution 10 mL, Enteral Tube, q6h ?? heparin injection 5,000 Units, Subcutaneous, q8h ?? lacosamide (Vimpat) tablet 200 mg, Enteral Tube, BID ?? levalbuterol (Xopenex) nebulizer solution 1.25 mg, Inhalation, q6h ?? levETIRAcetam (Keppra) oral solution 2,000 mg, Enteral Tube, BID ?? metoprolol tartrate IR (Lopressor) tablet 25 mg, Enteral Tube, BID ?? polyethylene glycol 3350 (Miralax) packet 17 g, Enteral Tube, QDAY ?? sodium chloride (Inhalant) 7 % nebulizer solution 4 mL, Inhalation, q6h ?? tamsulosin (Flomax) capsule 0.4 mg, Enteral Tube, QDAY ?? thiamine (Vitamin B-1) tablet 100 mg, Enteral Tube, QDAY ?? CONTINUOUS MEDICATIONS: ?? PRN MEDICATIONS: ?? 0.9% NaCl injection 1-10 mL, Intracatheter, PRN ?? glucagon (Glucagen) injection 1 mg, Subcutaneous, PRN ?? glucose (Diabetic Use) (Dex4 Glucose) oral liquid, Oral, PRN ?? glucose (Diabetic Use) oral gel, Oral, PRN ?? glucose chew tablet 4 tablet, Oral, PRN ?? Home MEDICATIONS: Data Review CBC: Recent Labs Component Name 12/11/2240112/10/2234312/09/22 0552 WBC 7.2 6.9 7.1 HGB 13.2 13.0 12.0 PLTCOUNT 236 266 295 MCV 92.1 92.4 90.1 BMP: Recent Labs Component Name 12/12/22 03412/11/22 04012/10/22 034 NA 139 138 139 POTASSIUM 4.9* 4.1 4.8* CL 105 104 104 CO2 27 25 28 BUN 11 11 15 CREATININE 0.51* 0.50* 0.50* EGFR >90 >90 >90 GLUCOSE 116* 81 88 CALCIUM 9.9 10.5* 10.4* ANIONGAP 12 13 12 Recent Labs Component Name 12/12/22 0342 12/11/22 0402 12/10/22 0344 PHOS 2.7* 2.9 2.9 MAGNESIUM 1.7 1.7 1.7 Hepatic: Recent Labs Component Name 12/12/22 0342 12/11/22 0402 12/10/22 0344 11/26/22 0310 11/25/22 0335 11/04/22 0633 10/09/22 1204 PROT - - - - 6.9 7.7 6.9 ALB 2.4* 2.6* 2.6* - 2.6* 2.9* 3.0* TBILI - - - - 0.2 0.2 0.1* AST - - - - 24 25 15 ALT - - - - 24 27 10 ALKPHOS - - - - 85 124 83 - = values in this interval not displayed. Coagulation: Recent Labs Component Name 12/09/22 1211 08/28/22 2224 PT 14.3 15.2* INR 1.1 1.2 TSH: Recent Labs Component Name 11/27/22 1542 TSH 1.790 Cardiac markers: Recent Labs Component Name 07/11/22 0040 07/01/22 1634 06/28/22 0141 06/27/22 2215 05/30/22 1750 03/08/22 1455 12/31/21 0412 CKTOTAL 49 42 - - - - 77 TROPONINI - - <0.010 <0.010 <0.010 - - - = values in this interval not displayed. UA: Recent Labs Component Name 11/25/22 0005 08/28/22 1516 07/04/22 0145 COLORU Yellow Yellow Yellow CLARITYU Clear Slt Cloudy* Clear LABSPEC 1.009 1.010 1.010 KETONES Negative Negative Negative BILIRUBINUR Negative Negative Negative BLOODU Negative Negative Negative NITRITE Negative Negative Negative LEUKOCYTE Negative 2+* 1+* WBCU - 21-50* 6-10* URINEBACT - Trace* Trace* YEASTBUDDING - - Few* Microbiology: Reviewed in [facility] Imaging: Reviewed in [facility] Assessment and Plan: #Dysphagia s/p PEG placement #Severe Protein Calorie Malnutrition -??Tube feeds via PEG for nutrition at home - STACK YIELD ENGINEER consulted - over the last 2 years they have seen the patient several times and failed swallowstudy - 12/07 GES: abnormal, delayed gastric emptying with T1/2 >120 min. - 12/10 GI replaced PEG tube -----PLAN: - 12/12 continue Osmolite at 80ml/hr (goal) - 12/13 make NPO 0000 in prep for GJ tube placement. - fter GJ tube placement??resume tube feeds with Osmolite at 40 ml/hr, increasing by 10 ml/hr q6hrs to goal of 80ml/hr.?? - Assure patient is tolerating tube feeds for 24 hours before discharge to his facility. ?? #Hypoglycemia - Per RN at bedside, patient BG has been running 70-80 - Patient has been NPO with minimal tube feeds due to scheduling of procedure -----PLAN: - Pending IR placing GJ tube 12/13 - D5 infusion 50 ml/hr when not receiving tube feeds - BG checks q4 hours - Resume tube feeds as soon as possible ?? #Intraoperative Ventricular Tachycardia -??Noted during ENT procedure on 11/26 with spontaneous conversion to sinus after 2-3 minutes -??Cardiology consult recommended no acute intervention -??Troponin within normal limits -----PLAN: - Continue telemetry -??Initiate amiodarone bolus with gtt if Vtach reoccurs -??Maintain K>4, Mg>2, hgb >9 ?? #Sinus Tachycardia #Hypertension #Premature Ventricular Contractions -??Heart rate and blood pressure stable on metoprolol tartrate 25mg -??Patient has HTN at baseline; was not on any SEAMAN meds - CT PE negative, TSH wnl -??24h urine metanephrines WNL -??Cardiology consult: consider workup for pheochromocytoma, titrate BP with gtts and transition with oral antihypertensives ?? #QTc prolongation -??Baseline 455,??prolonged to 526, most recent EKG 11/29 438 -----PLAN: -??Continue to monitor -??Avoid QT-prolonging medications ?? #PVD s/p L AKA -??On SEAMAN atorvastatin 40mg -??May resume??ASA??if no bleeding -----PLAN: - Will consider restarting??ASA??12/13??if tolerates IR procedure.? #Acute on Chronic Hypoxic Respiratory Failure s/p tracheostomy #Antrochoanal Polyp c/b bleeding -??Tracheostomy placed Jun 2022 during admission for aspiration pneumonia -??In [place] [facility] [place], 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 -??Surgical removal of bleeding polyp aborted due to Vtach run -??Epistat in place to control bleeding; posterior balloon deflated -??Extubated on 12/06 -----PLAN: -??SpO2 goal of 90% -??Continue SEAMAN guaifenesin, levalbuterol -??Hold SEAMAN scopolamine??patch -??f/u outpatient ENT #Pain #Back Pain - Patient complains of back pain - Upon repositioning, states pain is improved -----PLAN: - Pain control - Frequent repositioning - Tylenol 650mg [id number] PRN - Adjust pain medication as necessary ?? #Concern for Ventilator-Associated Pneumonia -??Patient developed low-grade fever on 11/28/22 -??Heavy pseudomonas growth and acinetobacter??in sputum cx -----PLAN: - ID??rec treatment with cefepime, completed??12/07/2022 ?? #Tracheal Bleeding - 07/01 antrochoanal polyp - Hgb??dropped 12.5->10.7, previously stable - HgB trending up, may resume??aspirin and chemical DVT ppx??while pt remains without bleeding -----PLAN: -??Heparin 5000 units, DVT ppx -??Trend CBC's daily -??Keep tracheostomy cuff inflated to prevent aspiration of blood -??ENT managing??epistat; posterior balloon deflated, anterior balloon partially deflated -??Afrin PRN -??ENT??to follow outpatient ?? #History of CVA c/b Left Sided Deficits #Dementia #Seizure Disorder -??On SEAMAN atorvastatin 40mg, Depakote 500mg q6h, Clobazam 20mg BID, ??Lacosamide 200mg BID, Midazolam 5mg nasal spray PRN -----PLAN: -??SEAMAN ASA??were held??due to??recent??bleeding, may resume if no epistaxis/nasal polyp bleeding - 12/11: discussed resuming ASA, will restart 12/13??after procedure ?? #BPH - On SEAMAN tamsulosin 0.4mg Lines: Trach collar, Jensen, PEG tube, PIV Prophylaxis: GI - Miralax DVT - SCDs, Heparin Nutrition: DIET TUBE FEEDING CONTINUOUS DIET NPO Except: NO EXCEPTIONS Code Status: Full Code Consults: IP CONSULT TO OTOLARYNGOLOGY IP CONSULT TO NUTRITIONAL SERV IP CONSULT TO RESPIRATORY IP CONSULT TO RADIOLOGY TEACHER IP CONSULT TO NUTRITIONAL SERV IP CONSULT TO NUTRITIONAL SERV IP CONSULT TO GENERAL SURGERY IP CONSULT TO INFECTIOUS DISEASES IP CONSULT TO INTERVENTIONAL RADIOLOGY IP CONSULT TO GASTROENTEROLOGY This patient will be discussed with the Attending Dr. uJlius Tucker, DO Internal Medicine, PGY-1 12/12/2022 7:24 AM Associated attestation - Feliciano Madrid MD - 12/12/2022 3:28 PM CDT Attending Physician Attestation I have seen and examined the patient with the resident and I agree with the findings and plan of care as documented by Dr. Tucker. Delayed gastric emptying (POA: Yes) History of CVA (cerebrovascular accident) (POA: Yes) Seizure disorder (CMS/HCC) (POA: Yes) Severe protein-calorie malnutrition (CMS/HCC) (POA: Yes) Chronic respiratory failure with hypoxia (CMS/HCC) (POA: Yes) Dementia, vascular (CMS/HCC) (POA: Yes) Nasal polyp (POA: Yes) Acute blood loss anemia (POA: Yes) PEG (percutaneous endoscopic gastrostomy) status (CMS/HCC) (POA: Yes) Tracheostomy in place (CMS/HCC) (POA: Yes) Date of Service: 12/12/2022 Feliciano Madrid MD * Anna Shine RN - 12/12/2022 2:55 AM CDT Problem: Fall Risk Goal: Fall [...] engage in desired activity. Outcome: Progressing * Clover Tucker DO - 12/11/2022 6:48 AM CDT Internal Medicine Progress Note Patient Name: Mojgan Tabor (62 year old) Room Number: 613/01 Hospital Day: 16 Admit Date: 11/24/2022 Subjective: Interval history: Patient seen and examined. No acute events overnight. Patient underwent PEG tube exchange with GI 12/10, tolerated the procedure well. PEG tube functioning well and tube feeds were resumed, patient tolerating. Patient is very interactive today. Denies any pain, chest pain, SOB, fever/chills, nausea or vomiting. States he has not had a BM. Hospital course: Mojgan Tabor??with??62 M??PMH of??chronic resp failure with new hypoxia, stroke, dementia, trach and PEG tube, and seizures??was admitted to the ICU following an ENT procedure??complicated by??intraoperative ventricular tachycardia.??The surgery was aborted due to Vtach run.??The patient spontaneously converted to sinus rhythm in the OR after 2-3 minutes. His course has been complicated by sinus tachycardia to the 140's and uncontrolled hypertension, which has improved with IV esmolol.??Switched from esmolol to metoprolol tartrate per cards recc.??Course complicated by presumed ventilator-associated pneumonia, treated with??Cefepime??that completed today 12/07/2022.??Extubated on 12/06 and has r emained on HHF/trach collar. ?? 12/07 patient was transferred to . Gastric emptying study??was abnormal, with T1/2 >120 minutes. Nutrition was consulted, and tube feeds were resumed per their recommendations. 12/08 IR was consulted for GJ tube placement. 12/09 GI consulted to switch PEG tube before IR procedure. PEG tube placed12/10 without difficulty. Patient awaiting IR procedure. Patient remains stable at this time. Objective: T: 97.9 ??F (36.6 ??C) [Temp Min: 97.1 ??F (36.2 ??C) Max: 98.6 ??F (37 ??C)] HR: 80[Pulse Min: 67 Max: 101] BP: 136/81[BP Min: 110/90 Max: 136/81] MAP: 95[MAP (mmHg) Min: 87 Max: 97] RR: 18[Resp Min: 18 Max: 21] Sat: 97 %[SpO2 Min: 96 % Max: 100 %] Date 12/10/22 0700 - 12/11/22 0659 12/11/22 07 - 12/12/22 0659 Shift [id number] 24 Hour Total 1809-3166 3420-6234 24 Hour Total INTAKE Tube 30 30 60 Shift Total(mL/kg) 30(0.4) 30(0.4) 60(0.8) OUTPUT Urine(mL/kg/hr) 255(0.3) 255(0.2) Drains 0 0 0 Shift Total(mL/kg) 255(3.6) 0(0) 255(3.6) NET -225 30 -195 Weight (kg) 70.8 70.8 70.8 70.8 70.8 70.8 Physical Exam: General - NAD, conversational, A&O x4 HEENT - NC/AT, PERRL, EOMI, MMM, clear conjunctivae Neck - Trach in place. Pulmonary - CTAB, no crackles/wheezes/rale/rhonchi. Cardiac - RRR, no murmurs appreciated. No JVD. Capillary refill normal. 3/4 radial and 3/4 DP pulses b/l Abdomen - Rigid, NT/ND, +BS, no hepatosplenomegaly Musculoskeletal - Moves all four extremities Extremities - LLE with below knee amputation. No clubbing, no cyanosis, no edema Skin - Seborrheic Dermatitis on scalp, appears improved. No rashes, lesions, or jaundice noted Neurologic - CN II-XII grossly intact. Largely nonverbal, but can follow simple verbal commands. Nofocal deficits Psych - Appropriate mood and affect Medications SCHEDULED MEDICATIONS: 0.9% NaCl injection 3 mL, Intracatheter, q8h atorvastatin (Lipitor) tablet 40 mg, Enteral Tube, AT BEDTIME cloBAZam (Onfi) tablet 20 mg, Enteral Tube, BID divalproex sprinkle (Depakote Sprinkle) capsule 500 mg, Enteral Tube, q6h folic acid (Folvite) tablet 1 mg, Enteral Tube, QDAY guaiFENesin (Robitussin) solution 10 mL, Enteral Tube, q6h heparin injection 5,000 Units, Subcutaneous, q8h lacosamide (Vimpat) tablet 200 mg, Enteral Tube, BID levalbuterol (Xopenex) nebulizer solution 1.25 mg, Inhalation, q6h levETIRAcetam (Keppra) oral solution 2,000 mg, Enteral Tube, BID metoprolol tartrate IR (Lopressor) tablet 25 mg, Enteral Tube, BID polyethylene glycol 3350 (Miralax) packet 17 g, Enteral Tube, QDAY sodium chloride (Inhalant) 7 % nebulizer solution 4 mL, Inhalation, q6h tamsulosin (Flomax) capsule 0.4 mg, Enteral Tube, QDAY ?? thiamine (Vitamin B-1) tablet 100 mg, Enteral Tube, QDAY ?? CONTINUOUS MEDICATIONS: PRN MEDICATIONS: 0.9% NaCl injection 1-10 mL, Intracatheter, PRN glucagon (Glucagen) injection 1 mg, Subcutaneous, PRN glucose (Diabetic Use) (Dex4 Glucose) oral liquid, Oral, PRN glucose (Diabetic Use) oral gel, Oral, PRN ?? glucose chew tablet 4 tablet, Oral, PRN ?? Home MEDICATIONS: Data Review CBC: Recent Labs Component Name 12/11/2240112/10/2234312/09/22 0552 WBC 7.2 6.9 7.1 HGB 13.2 13.0 12.0 PLTCOUNT 236 266 295 MCV 92.1 92.4 90.1 BMP: Recent Labs Component Name 12/11/2240112/10/2234312/09/22 0552 NA 138 139 138 POTASSIUM 4.1 4.8* 4.5 CL 104 104 106 CO2 25 28 27 BUN 11 15 13 CREATININE 0.50* 0.50* 0.47* EGFR >90 >90 >90 GLUCOSE 81 88 112 CALCIUM 10.5* 10.4* 10.1 ANIONGAP 13 12 10 Recent Labs Component Name 12/11/2240112/10/22 03412/09/22 0552 PHOS 2.9 2.9 2.8 MAGNESIUM 1.7 1.7 1.8 Hepatic: Recent Labs Component Name 12/11/2240112/10/2234312/09/22 0552 11/26/22 0310 11/25/22 0335 11/04/22 0633 10/09/22 1204 PROT - - - - 6.9 7.7 6.9 ALB 2.6* 2.6* 2.3* - 2.6* 2.9* 3.0* TBILI - - - - 0.2 0.2 0.1* AST - - - - 24 25 15 ALT - - - - 24 27 10 ALKPHOS - - - - 85 124 83 - = values in this interval not displayed. Coagulation: Recent Labs Component Name 12/09/22 1211 08/28/22 2224 PT 14.3 15.2* INR 1.1 1.2 TSH: Recent Labs Component Name 11/27/22 1542 TSH 1.790 Cardiac markers: Recent Labs Component Name 07/11/22 0040 07/01/22 1634 06/28/22 0141 06/27/22 2215 05/30/22 1750 03/08/22 1455 12/31/21 0412 CKTOTAL 49 42 - - - - 77 TROPONINI - - <0.010 <0.010 <0.010 - - - = values in this interval not displayed. UA: Recent Labs Component Name 11/25/22 0005 08/28/22 1516 07/04/22 0145 COLORU Yellow Yellow Yellow CLARITYU Clear Slt Cloudy* Clear LABSPEC 1.009 1.010 1.010 KETONES Negative Negative Negative BILIRUBINUR Negative Negative Negative BLOODU Negative Negative Negative NITRITE Negative Negative Negative LEUKOCYTE Negative 2+* 1+* WBCU - 21-50* 6-10* URINEBACT - Trace* Trace* YEASTBUDDING - - Few* Microbiology: Reviewed in [facility] Imaging: Reviewed in [facility] Assessment and Plan: #Dysphagia s/p PEG placement #Severe Protein Calorie Malnutrition -??Tube feeds via PEG for nutrition at home - [employer] consulted - over the last 2 years they have seen the patient several times and failed swallowstudy - 12/07 GES: abnormal, delayed gastric emptying with T1/2 >120 min. - 12/10 GI replaced PEG tube -----PLAN: - Nutrition:??continue nutrition, will make NPO 0000 12/12. After GJ tube placement??resume tube feeds with Osmolite at 40 ml/hr, increasing by 10 ml/hr q6hrs.?? - IR to perform GJ tube placement 12/13 - Assure patient is tolerating tube feeds before discharge. ?? #Hypoglycemia - Per RN at bedside, patient BG has been running 70-80 - Patient has been NPO with minimal tube feeds due to scheduling of procedure -----PLAN: - Pending IR placing GJ tube 12/13 - D5 infusion 50 ml/hr when not receiving tube feeds - BG checks q4 hours - Resume tube feeds as soon as able ?? #Intraoperative Ventricular Tachycardia -??Noted during ENT procedure on 11/26 with spontaneous conversion to sinus after 2-3 minutes -??Cardiology consult recommended no acute intervention -??Troponin within normal limits -----PLAN: - Continue telemetry -??Initiate amiodarone bolus with gtt if Vtach reoccurs -??Maintain K>4, Mg>2, hgb >9 ?? #Sinus Tachycardia #Hypertension #Premature Ventricular Contractions -??Heart rate and blood pressure stable on metoprolol tartrate 25mg -??Patient has HTN at baseline; was not on any SEAMAN meds - CT PE negative, TSH wnl -??24h urine metanephrines WNL -??Cardiology consult: consider workup for pheochromocytoma, titrate BP with gtts and transition with oral antihypertensives ?? #QTc prolongation -??Baseline 455,??prolonged to 526, most recent EKG 11/29 438 -----PLAN: -??Continue to monitor -??Avoid QT-prolonging medications ?? #PVD s/p L AKA -??On SEAMAN atorvastatin 40mg -??May resume??ASA??if no bleeding -----PLAN: - Will consider restarting ASA 12/13 if tolerates IR procedure.? #Acute on Chronic Hypoxic Respiratory Failure s/p tracheostomy #Antrochoanal Polyp c/b bleeding -??Tracheostomy placed Jun 2022 during admission for aspiration pneumonia -??In [facility] facility, 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 -??Surgical removal of bleeding polyp aborted due to Vtach run -??Epistat in place to control bleeding; posterior balloon deflated -??Extubated on 12/06 -----PLAN: -??SpO2 goal of 90% -??Continue SEAMAN guaifenesin, levalbuterol -??Hold SEAMAN scopolamine??patch -??f/u outpatient ENT ?? #Concern for Ventilator-Associated Pneumonia -??Patient developed low-grade fever on 11/28/22 -??Heavy pseudomonas growth and acinetobacter??in sputum cx -----PLAN: - ID??rec treatment with cefepime, completed??12/07/2022 ?? #Tracheal Bleeding - 2/2 antrochoanal polyp - Hgb??dropped 12.5->10.7, previously stable - HgB trending up, may resume??aspirin and chemical DVT ppx??while pt remains without bleeding -----PLAN: -??Lovenox 40 DVT ppx -??Trend CBC's daily -??Keep tracheostomy cuff inflated to prevent aspiration of blood -??ENT managing??epistat; posterior balloon deflated, anterior balloon partially deflated -??Afrin PRN -??ENT??to follow outpatient ?? #History of CVA c/b Left Sided Deficits #Dementia #Seizure Disorder -??On SEAMAN atorvastatin 40mg, Depakote 500mg q6h, Clobazam 20mg BID, ??Lacosamide 200mg BID, Midazolam 5mg nasal spray PRN -----PLAN: -??SEAMAN ASA??were held??due to??recent??bleeding, may resume if no epistaxis/nasal polyp bleeding - 12/11: discussed resuming ASA, will restart 12/13 after procedure ?? #BPH - on SEAMAN tamsulosin 0.4mg Lines: Trach collar, Jensen, PEG tube, PIV Prophylaxis: GI - none DVT - SCDs, Lovenox Nutrition: DIET TUBE FEEDING CONTINUOUS DIET NPO Except: NO EXCEPTIONS Code Status: Full Code Consults: IP CONSULT TO OTOLARYNGOLOGY IP CONSULT TO NUTRITIONAL SERV IP CONSULT TO RESPIRATORY IP CONSULT TO RADIOLOGY TEACHER IP CONSULT TO NUTRITIONAL SERV IP CONSULT TO NUTRITIONAL SERV IP CONSULT TO GENERAL SURGERY IP CONSULT TO INFECTIOUS DISEASES IP CONSULT TO INTERVENTIONAL RADIOLOGY IP CONSULT TO GASTROENTEROLOGY This patient will be discussed with the Attending Dr. Julius Tucker, DO Internal Medicine, PGY-1 12/11/2022 12:45 PM Associated attestation - Feliciano Madrid MD - 12/11/2022 2:52 PM CDT Attending Physician Attestation I have seen and examined the patient with the resident and I agree with the findings and plan of care as documented by Dr. Tucker. Stable, no symptoms today, HR/BP at goal, minimal O2 req, awaiting GJ tube for gastroparesis w/ recurrent aspiration Delayed gastric emptying (POA: Yes) History of CVA (cerebrovascular accident) (POA: Yes) Seizure disorder (CMS/HCC) (POA: Yes) Severe protein-calorie malnutrition (CMS/HCC) (POA: Yes) Chronic respiratory failure with hypoxia (CMS/HCC) (POA: Yes) Dementia, vascular (CMS/HCC) (POA: Yes) Nasal polyp (POA: Yes) Acute blood loss anemia (POA: Yes) PEG (percutaneous endoscopic gastrostomy) status (CMS/HCC) (POA: Yes) Tracheostomy in place (CMS/HCC) (POA: Yes) Date of Service: 12/11/2022 Feliciano Madrid MD * Zulma Mcdonald RN - 12/11/2022 4:28 AM CDT Problem: Skin Integrity Goal: Skin integrity is maintained or improved Outcome: Progressing * Mely Layne RD/ONI - 12/10/2022 12:04 PM CDT Nutrition Re-Assessment Brief Synopsis: Patient is diagnosed with severe malnutrition; Specific criteria can be found in assessment below Nutrition Plan: NPO for planned PEG tube switch out and GJ tube placement today, per IM note Tube Feeding Recommendations post-procedure: Continuous: Osmolite 1.2 at 80 ml/hr. Provides 2304 kcals, 107 g pro, 302 g carbohydrate, 1574 ml free water +150 ml q4 hrs free water flush or per MD if not on additional fluids TF considerations: 1. Restart at 40ml/h and increase by 10ml/h q4h until goal 2. Do not hold unless residuals >500 as recommended by [facility]EN. 3. For critical care, If residuals >200, monitor for symptoms of intolerance. 4. Signs of intolerance include: diarrhea, abdominal pain or distention. 5. Head of bed > 30?? Recommendations to Physician: Restart TF regimen above post-procedure when appropriate; monitor tolerance prior to d/c. *If serum K+ continues to rise, see clinical nutrition note from 12/07 for TF recs Comments: Pt scheduled for reassessment. TF held today for tentative placement of GJ tube and PEG tube drain switch, per recent IM note. Refer to TF recs above for nutrition post-procedure. LBM reported 12/09 x 1 -- no GI issues noted in documentation. K+ (4.8). Will continue to follow. Assessment: Med/Surg History and Clinical Diagnoses: 62 year old male w/PMHx significant for prior CVA c/b left-sided residual deficits, seizure disorder, dementia, dysphagia w/ recurrent aspiration s/p PEG, zenker divertiuculum s/p diverticulectomy 2022, chronic hypoxic respiratory faiure s/p trach 06/2022, PVD s/p L AKA, and HTN who presents to [facility] from [facility]) for acute on chronic hypoxic respiratory failure and evaluation of bleeding from tracheostomy Diet order accuracy Current diet order: NPO Current supplement order: None Current tube feeding order: held Nutrition recommendation: alter/change nutrition order P.O.Intake for the past 48 hrs:No data recorded Supplement(s) Consumed- Last 48 hours None Food Allergies: No known food allergies GI Concerns: Constipation;Other (Comment) (PEG) Chewing/Swallowing: Other (Comment) (ETT) Pain affecting intake: No Admission weight: Weight: 54.9 kg (121 lb) (11/25/22 0620) Recent Weights/Methods 12/01/2022 0347 12/02/2022 0355 12/03/2022 0229 12/04/2022 0333 12/05/2022 0321 12/06/2022 0311 12/07/2022 0600 12/08/2022 0400 Weight: 68.6 kg (151 lb 3.2 oz) 70.3 kg (155 lb) 73.3 kg (161 lb 9.6 oz) 70 kg (154 lb 4.8 oz) 68.7kg (151 lb 6.4 oz) 68.9 kg (152 lb) 70.8 kg (156 lb 1.6 oz) 70.8 kg (156 lb) Weight Method (Utilize Scales): Bedscale Bedscale Bedscale Bedscale Bedscale Bedscale Bedscale Bedscale Wt Comments: Weight appears to be trending back up; monitoring Height: 177.8 cm (5' 10 ) IBW/lb (Calculated) Male: 166 , Laboratory values reviewed. Recent Labs Component Name 12/10/22 0344 12/09/22 0552 12/08/22 0428 11/26/22 0310 11/25/22 0335 11/04/22 0633 10/12/22 0716 10/09/22 1204 BUN 15 13 16 - 16 14 - 14 CREATININE 0.50* 0.47* 0.49* - 0.45* 0.47* - 0.39* NA 139 138 137 - 138 136 - 140 POTASSIUM 4.8* 4.5 4.6* - 4.5 4.0 - 4.0 CL 104 106 104 - 108* 106 - 108* CO2 28 27 26 - 26 24 - 24 GLUCOSE 88 112 105 - 91 98 - 115 CALCIUM 10.4* 10.1 10.6* - 9.5 9.7 - 9.8 PROT - - - - 6.9 7.7 - 6.9 ALB 2.6* 2.3* 2.5* - 2.6* 2.9* - 3.0* TBILI - - - - 0.2 0.2 - 0.1* ALKPHOS - - - - 85 124 - 83 ALT - - - - 24 27 - 10 AST - - - - 24 25 - 15 ANIONGAP 12 10 12 - 9 10 - 12 BCR 30* 28* 33* - 36* 30* - 36* OSMOLALITY 288 287 286 - 287 282 - 291 AGRATIO - - - - 0.6* 0.6* - 0.8* EGFR >90 >90 >90 - >90 >90 - >90 - = values in this interval not displayed. Medications noted. Current Facility-Administered Medications Medication ??? 0.9% NaCl injection 3 mL And ??? 0.9% NaCl injection 1-10 mL ??? atorvastatin (Lipitor) tablet 40 mg ??? cloBAZam (Onfi) tablet 20 mg ??? dextrose 10 % IV bolus Or ??? dextrose 10 % IV bolus ??? dextrose 5 % infusion ??? divalproex sprinkle (Depakote Sprinkle) capsule 500 mg ??? folic acid (Folvite) tablet 1 mg ??? glucagon (Glucagen) injection 1 mg ??? glucose (Diabetic Use) (Dex4 Glucose) oral liquid ??? glucose (Diabetic Use) oral gel ??? glucose chew tablet 4 tablet ??? guaiFENesin (Robitussin) solution 10 mL ??? lacosamide (Vimpat) tablet 200 mg ??? levalbuterol (Xopenex) nebulizer solution 1.25 mg ??? levETIRAcetam (Keppra) oral solution 2,000 mg ??? metoprolol tartrate IR (Lopressor) tablet 25 mg ??? sodium chloride (Inhalant) 7 % nebulizer solution 4 mL ??? tamsulosin (Flomax) capsule 0.4 mg ??? thiamine (Vitamin B-1) tablet 100 mg Skin/Wound: surgical incision on nose Estimated Energy Needs: KCAL: 4020-0268 (30-35kcal/kg (ABW)) Protein (g): 90g (1.3g/kg (ABW)) Fluid (ml): 1 ml/kcal Needs based on: Kcal/kg- (Comment) (ABW 70.8kg) Recommended Access Route: TF Malnutrition Etiology: Malnutrition in the context of: chronic disease, Malnutrition Severity: Severe Unintended weight change: Severe weight loss Weight Loss: > 7.5% x 3 months BMI: Body mass index is 22.38 kg/m??. GI Concerns: Constipation;Other (Comment) (PEG) Nutrition Focused Physical Assessment: Loss of Subcutaneous Fat Orbital: Severe Buccal: Severe Muscle Loss Temples (Temporalis Muscle): Severe Clavicles (Pectoralis & Deltoids): Severe Shoulders (Deltoids): Severe Thigh (Quadriceps): Severe Education needed: None Education Provided: Not appropriate Nutrition Care Process (1) Nutrition Diagnostic Statement: Malnutrition severity: : Severe related to:: inadequate protein-energy intake as evidenced by:: unintentional weight loss;loss of subcutaneous fat;loss of muscle mass;BMI less than 19 Nutrition Diagnostic Statement Progress: Nutrition problem continues Nutrition Intervention: Enteral nutrition: Monitoring: TF, BM, labs, meds, weight Evaluation: Nutrition Goal: Enteral/Parenteral Nutrition prescription will be consistent with estimated nutrient needs Nutrition Goal Timeframe: Throughout stay Nutrition Goal Progress: Continue with current goal Mely McTigue, RD/ONI [place]ARILLO Ascom: [id number] * Suzy Farmer RN - 12/10/2022 9:35 AM CDT Care Coordination Progress Note Anticipated level of care at discharge: [facility] - Medicaid Pt new to my caseload Discharge Plan: SW following for placement to [facility]. Pt needing GJ tube for nutritional needs. READMISSION RISK SCORE is 27 at 9:36 AM 12/10/2022. Anticipated Discharge Date: 12/10/22 Patient/Family provided with list of resources? Yes Preferred Provider / High Quality Network List given?: Unknown Reason for provider choice: Pt. choice - previous provider Family Support (Name and Phone): Extended Emergency Contact Information Primary Emergency Contact: Adriane Hilliard Mobile Relation: Sister Farm Operator needed? No Secondary Emergency Contact: [facility] Relation: Brother Transportation at Discharge: Ambulance Equipment at Home: Equipment at Home: Facility Equipment List DME patient requires but does not have: DME Provider: Medication affordability concerns: No Follow Up Appointment: Transportation to MD: Ambulance Auth Number (if required): [place]: DME: Medications: Transportation: Name: Suzy Farmer RN Phone: [phone] * Lula Perrin PA - 12/10/2022 9:00 AM CDT BRIEF VIR progress note The patient's case was reviewed this morning. It is recommended that the current mushroom type G-tube be replaced by GI with balloon type in preparation for VIR G to GJ conversion. This was communicated to the primary team. Thank you for allowing us to participate in the care of this patient. Please do not hesitate to contact us with further questions. Lula Perrin PA-C Vascular and Interventional Radiology [facility] [phone] * CaitlinRjClover, DO - 12/10/2022 7:07 AM CDT Internal Medicine Progress Note Patient Name: Mojgan Tabor (62 year old) Room Number: 613/01 Hospital Day: 15 Admit Date: 11/24/2022 Subjective: Interval history: Patient seen and examined. No acute events overnight. RN notes that patients BG runs 70-80s. Patient is not receiving diabetic medications. Upon entering room, patients brother Jim present. Patientis more interactive today and answers multiple questions. States he has had SOB and has felt chilled. Denies chest pain. Upon examination, patient jaw was shaking, brother states patient had similar symptoms when he had seizures. Brother asked if he felt like he had a seizure, patient states no. Hospital course: Mojgan Tabor??with??62 M??PMH of??chronic resp failure with new hypoxia, stroke, dementia, trach and PEG tube, and seizures??was admitted to the ICU following an ENT procedure??complicated by??intraoperative ventricular tachycardia.??The surgery was aborted due to Vtach run.??The patient spontaneously converted to sinus rhythm in the OR after 2-3 minutes. His course has been complicated by sinus tachycardia to the 140's and uncontrolled hypertension, which has improved with IV esmolol.??Switched from esmolol to metoprolol tartrate per cards recc.??Course complicated by presumed ventilator-associated pneumonia, treated with??Cefepime??that completed today 12/07/2022.??Extubated on 12/06 and has r emained on HHF/trach collar. ?? 12/07 patient was transferred to . Gastric emptying study was abnormal, with T1/2 >120 minutes.Nutrition was consulted, and tube feeds were resumed per their recommendations. 12/08 IR was consulted for GJ tube placement. 12/09 GI consulted to switch PEG tube before IR procedure. Procedures pending. Patient remains stable at this time. Objective: T: 97.5 ??F (36.4 ??C) [Temp Min: 97.2 ??F (36.2 ??C) Max: 97.9 ??F (36.6 ??C)] HR: 82[Pulse Min: 75 Max: 95] BP: 108/75[BP Min: 108/75 Max: 145/95] MAP: 85[MAP (mmHg) Min: 81 Max: 110] RR: 19[Resp Min: 18 Max: 21] Sat: 96 %[SpO2 Min: 95 % Max: 100 %] Date 12/09/22699 - 12/10/2265812/10/22699 - 12/11/22 0659 Shift [id number] 24 Hour Total 1417-5359 2115-3203 24 Hour Total INTAKE Other 600 600 Tube 30 30 Enteral 874 874 Shift Total(mL/kg) 30(0.4) 1474(20.8) 1504(21.3) OUTPUT Urine(mL/kg/hr) 550(0.6) 600(0.7) 1150(0.7) Drains 0 0 Shift Total(mL/kg) 550(7.8) 600(8.5) 1150(16.3) NET -520 874 354 Weight (kg) 70.8 70.8 70.8 70.8 70.8 70.8 Physical Exam: General - NAD, conversational, A&O x4 HEENT - NC/AT, PERRL, EOMI, MMM, clear conjunctivae Neck - Trach in place. Pulmonary - CTAB, no crackles/wheezes/rale/rhonchi. Upper airway sounds noted. Cardiac - RRR, no murmurs appreciated. No JVD. Capillary refill normal. 3/4 radial and 3/4 DP pulses b/l Abdomen - Rigid, NT/ND, +BS, no hepatosplenomegaly Musculoskeletal - Moves all four extremities Extremities - LLE with below knee amputation. No clubbing, no cyanosis, no edema Skin - Seborrheic Dermatitis on face/scalp, appears improved. No rashes, lesions, or jaundice noted Neurologic - CN II-XII grossly intact. Largely nonverbal, but can follow simple verbal commands. Nofocal deficits Psych - Appropriate mood and affect Medications ?? SCHEDULED MEDICATIONS: ?? 0.9% NaCl injection 3 mL, Intracatheter, q8h ?? atorvastatin (Lipitor) tablet 40 mg, Enteral Tube, AT BEDTIME ?? cloBAZam (Onfi) tablet 20 mg, Enteral Tube, BID ?? divalproex sprinkle (Depakote Sprinkle) capsule 500 mg, Enteral Tube, q6h ?? folic acid (Folvite) tablet 1 mg, Enteral Tube, QDAY ?? guaiFENesin (Robitussin) solution 10 mL, Enteral Tube, q6h ?? lacosamide (Vimpat) tablet 200 mg, Enteral Tube, BID ?? levalbuterol (Xopenex) nebulizer solution 1.25 mg, Inhalation, q6h ?? levETIRAcetam (Keppra) oral solution 2,000 mg, Enteral Tube, BID ?? metoprolol tartrate IR (Lopressor) tablet 25 mg, Enteral Tube, BID ?? sodium chloride (Inhalant) 7 % nebulizer solution 4 mL, Inhalation, q6h ?? tamsulosin (Flomax) capsule 0.4 mg, Enteral Tube, QDAY ?? thiamine (Vitamin B-1) tablet 100 mg, Enteral Tube, QDAY ?? CONTINUOUS MEDICATIONS: ?? PRN MEDICATIONS: ?? Or ?? 0.9% NaCl injection 1-10 mL, Intracatheter, PRN ?? dextrose 10 % IV bolus, Intravenous, PRN ?? dextrose 10 % IV bolus, Intravenous, PRN ?? glucagon (Glucagen) injection 1 mg, Subcutaneous, PRN ?? glucose (Diabetic Use) (Dex4 Glucose) oral liquid, Oral, PRN ?? glucose (Diabetic Use) oral gel, Oral, PRN ?? glucose chew tablet 4 tablet, Oral, PRN ?? Home MEDICATIONS: Data Review CBC: Recent Labs Component Name 12/10/2234312/09/22 0552 12/08/22 0428 WBC 6.9 7.1 8.7 HGB 13.0 12.0 11.8* PLTCOUNT 266 295 343 MCV 92.4 90.1 93.1 BMP: Recent Labs Component Name 12/10/2234312/09/22 0552 12/08/22 0428 NA 139 138 137 POTASSIUM 4.8* 4.5 4.6* CL 104 106 104 CO2 28 27 26 BUN 15 13 16 CREATININE 0.50* 0.47* 0.49* EGFR >90 >90 >90 GLUCOSE 88 112 105 CALCIUM 10.4* 10.1 10.6* ANIONGAP 12 10 12 Recent Labs Component Name 12/10/22 0344 12/09/22 0552 12/08/22 0428 PHOS 2.9 2.8 2.8 MAGNESIUM 1.7 1.8 1.9 Hepatic: Recent Labs Component Name 12/10/22 0344 12/09/22 0552 12/08/22 0428 11/26/22 0310 11/25/22 0335 11/04/22 0633 10/09/22 1204 PROT - - - - 6.9 7.7 6.9 ALB 2.6* 2.3* 2.5* - 2.6* 2.9* 3.0* TBILI - - - - 0.2 0.2 0.1* AST - - - - 24 25 15 ALT - - - - 24 27 10 ALKPHOS - - - - 85 124 83 - = values in this interval not displayed. Coagulation: Recent Labs Component Name 12/09/22 1211 08/28/22 2224 PT 14.3 15.2* INR 1.1 1.2 TSH: Recent Labs Component Name 11/27/22 1542 TSH 1.790 Cardiac markers: Recent Labs Component Name 07/11/22 0040 07/01/22 1634 06/28/22 0141 06/27/22 2215 05/30/22 1750 03/08/22 1455 12/31/21 0412 CKTOTAL 49 42 - - - - 77 TROPONINI - - <0.010 <0.010 <0.010 - - - = values in this interval not displayed. UA: Recent Labs Component Name 11/25/22 0005 08/28/22 1516 07/04/22 0145 COLORU Yellow Yellow Yellow CLARITYU Clear Slt Cloudy* Clear LABSPEC 1.009 1.010 1.010 KETONES Negative Negative Negative BILIRUBINUR Negative Negative Negative BLOODU Negative Negative Negative NITRITE Negative Negative Negative LEUKOCYTE Negative 2+* 1+* WBCU - 21-50* 6-10* URINEBACT - Trace* Trace* YEASTBUDDING - - Few* Microbiology: Reviewed in [facility] Imaging: Reviewed in [facility] Assessment and Plan: #Dysphagia s/p PEG placement #Severe Protein Calorie Malnutrition -??Tube feeds via PEG for nutrition at home - STACK YIELD ENGINEER consulted - over the last 2 years they have seen the patient several times and failed swallowstudy - 12/07 GES: abnormal, delayed gastric emptying with T1/2 >120 min. -----PLAN: -??GI to switch out PEG tube, tentatively 12/10 - IR to perform GJ tube placement, tentatively 12/10 - Nutrition: after GJ tube placement resume tube feeds with Osmolite at 40 ml/hr, increasing by 10 ml/hr q6hrs.?? - Assure patient is tolerating tube feeds before discharge. #Hypoglycemia - Per RN at bedside, patient BG has been running 70-80 - Patient has been NPO with minimal tube feeds due to scheduling of procedure -----PLAN: - GI/IR consulted for switching PEG tube and placement of GJ tube - D5 infusion 50 ml/hr - BG checks q4 hours - Resume tube feeds as soon as able ?? #Intraoperative Ventricular Tachycardia -??Noted during ENT procedure on 11/26 with spontaneous conversion to sinus after 2-3 minutes -??Cardiology consult recommended no acute intervention -??Troponin within normal limits -----PLAN: - Continue telemetry -??Initiate amiodarone bolus with gtt if Vtach reoccurs -??Maintain K>4, Mg>2, hgb >9 ?? #Sinus Tachycardia #Hypertension #Premature Ventricular Contractions -??Heart rate and blood pressure stable on metoprolol tartrate 25mg -??Patient has HTN at baseline; was not on any SEAMAN meds - CT PE negative, TSH wnl -??24h urine metanephrines WNL -??Cardiology consult: consider workup for pheochromocytoma, titrate BP with gtts and transition with oral antihypertensives ?? #QTc prolongation -??Baseline 455,??prolonged to 526, most recent EKG 11/29 438 -----PLAN: -??Continue to monitor -??Avoid QT-prolonging medications ?? #PVD s/p L AKA -??On SEAMAN atorvastatin 40mg -??May resume??ASA??if no bleeding -----PLAN: - Will consider restarting ASA 12/11 if tolerates GI/IR procedure. ?? #Acute on Chronic Hypoxic Respiratory Failure s/p tracheostomy #Antrochoanal Polyp c/b bleeding -??Tracheostomy placed Jun 2022 during admission for aspiration pneumonia -??In [facility] facility, 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 -??Surgical removal of bleeding polyp aborted due to Vtach run -??Epistat in place to control bleeding; posterior balloon deflated -??Extubated on 12/06 -----PLAN: -??SpO2 goal of 90% -??Continue SEAMAN guaifenesin, levalbuterol -??Hold SEAMAN scopolamine??patch -??f/u outpatient ENT ?? #Concern for Ventilator-Associated Pneumonia -??Patient developed low-grade fever on 11/28/22 -??Heavy pseudomonas growth and acinetobacter??in sputum cx -----PLAN: - ID??rec treatment with cefepime, completed??12/07/2022 ?? #Tracheal Bleeding - /2 antrochoanal polyp - Hgb??dropped 12.5->10.7, previously stable - HgB trending up, may resume??aspirin and chemical DVT ppx??while pt remains without bleeding -----PLAN: -??Lovenox 40 DVT ppx -??Trend CBC's daily -??Keep tracheostomy cuff inflated to prevent aspiration of blood -??ENT managing??epistat; posterior balloon deflated, anterior balloon partially deflated -??Afrin PRN -??ENT??to follow outpatient ?? #History of CVA c/b Left Sided Deficits #Dementia #Seizure Disorder -??On SEAMAN atorvastatin 40mg, Depakote 500mg q6h, Clobazam 20mg BID, ??Lacosamide 200mg BID, Midazolam 5mg nasal spray PRN -----PLAN: -??SEAMAN ASA??were held??due to??recent??bleeding, may resume if no epistaxis/nasal polyp bleeding - 12/10: discussed resuming ASA, will restart 12/11 if GI/IR procedure is well tolerated ?? #BPH - on SEAMAN tamsulosin 0.4mg Lines: Trach collar, Jensen, PEG tube, PIV Prophylaxis: GI - none DVT - SCDs, Lovenox Nutrition: DIET NPO Except: NO EXCEPTIONS Code Status: Full Code Consults: IP CONSULT TO OTOLARYNGOLOGY IP CONSULT TO NUTRITIONAL SERV IP CONSULT TO RESPIRATORY IP CONSULT TO RADIOLOGY TEACHER IP CONSULT TO NUTRITIONAL SERV IP CONSULT TO NUTRITIONAL SERV IP CONSULT TO GENERAL SURGERY IP CONSULT TO INFECTIOUS DISEASES IP CONSULT TO INTERVENTIONAL RADIOLOGY This patient will be discussed with the Attending Dr. Macho Tucker DO Internal Medicine, PGY-1 12/10/2022 7:08 AM Associated attestation - Dina Pritchard DO - 12/10/2022 9:18 PM CDT I have seen and examined the patient with the resident and I agree with the findings and plan of care as documented by the resident. Active Problem List History of CVA (cerebrovascular accident) (POA: Yes) Seizure disorder (CMS/HCC) (POA: Yes) Severe protein-calorie malnutrition (CMS/HCC) (POA: Yes) Sinus tachycardia (POA: Unknown) Chronic respiratory failure with hypoxia (CMS/HCC) (POA: Yes) Dementia, vascular (CMS/HCC) (POA: Yes) Nasal polyp (POA: Yes) Acute blood loss anemia (POA: Yes) PEG (percutaneous endoscopic gastrostomy) status (CMS/HCC) (POA: Yes) Tracheostomy in place (CMS/HCC) (POA: Yes) Delayed gastric emptying (POA: Unknown) Date of Service: 12/10/2022 Dina Pritchard DO * Mariajose Estrada RN - 12/10/2022 5:31 AM CDT Problem: Fall Risk Goal: Fall [...] engage in desired activity. Outcome: Progressing Problem: Mechanical Ventilation Goal: Patent airway Outcome: Progressing Goal: Tracheostomy will be managed safely Outcome: Progressing * Mary Simmons MSW - 12/09/2022 4:02 PM CDT New Facility Referral Followup Level of Care (SNF/Medicaid NH/Rehab/Group Home Care/LTACH): SNF Pt a resident of [facility] with plans to return once medically ready. Updates sent to facility. Pt is pending placement of a GJ tube for nutrition. SW to continue to follow. Referrals initiated: Continued Care and Services - Admitted Since 11/24/2022 Destination Service Provider Request Status Selected Services Address Phone Fax Patient Preferred [facility] (formerly [facility] and [facility]Pending - Request Sent N/A [phone] [facility] [phone] -- Current Capacity last updated by Yu Nguyễn on 04/21/2022 1237 118 If Medicare-3 day qualifying stay verified: Yes monitoring facility responses Comments/changes: Name: CLARITA Thornton Phone: [phone] * Clover Tucker DO - 12/09/2022 8:34 AM CDT Internal Medicine Progress Note Patient Name: Mojgan Tabor (62 year old) Room Number: 613/01 Hospital Day: 14 Admit Date: 11/24/2022 Subjective: Interval history: Patient seen and examined. No acute events overnight. Spoke with patients sister, Loranger, last nightdiscussing potential for IR procedure for GJ tube placement. Patient received tube feeds and did not go NPO at 0000 in preparation for IR procedure. Currently NPO. Interview limited 2/2 clinical state. Patient does indicate that he is having back pain. Hospital course: Mojgan Tabor??with??62 M??PMH of??chronic resp failure with new hypoxia, stroke, dementia, trach and PEG tube, and seizures??was admitted to the ICU following an ENT procedure??complicated by??intraoperative ventricular tachycardia.??The surgery was aborted due to Vtach run.??The patient spontaneously converted to sinus rhythm in the OR after 2-3 minutes. His course has been complicated by sinus tachycardia to the 140's and uncontrolled hypertension, which has improved with IV esmolol.??Switched from esmolol to metoprolol tartrate per cards recc.??Course complicated by presumed ventilator-associated pneumonia, treated with??Cefepime??that completed today 12/07/2022.??Extubated on 12/06 and has r emained on HHF/trach collar. 12/07-12/09 patients gastric emptying study was abnormal. IR was consulted to assess for potential ofGJ tube placement. Objective: T: 97.9 ??F (36.6 ??C) [Temp Min: 97.9 ??F (36.6 ??C) Max: 98.6 ??F (37 ??C)] HR: 78[Pulse Min: 75 Max: 104] BP: 130/76[BP Min: 119/69 Max: 144/83] MAP: 93[MAP (mmHg) Min: 84 Max: 102] RR: 18[Resp Min: 18 Max: 19] Sat: 96 %[SpO2 Min: 95 % Max: 100 %] Date 12/08/22699 - 12/09/2265812/09/22699 - 12/10/22 0659 Shift 4686-8814 2514-3489 24 Hour Total 9393-9244 5944-4574 24 Hour Total INTAKE Tube 150 150 300 Shift Total(mL/kg) 150(2.1) 150(2.1) 300(4.2) OUTPUT Urine(mL/kg/hr) 700(0.8) 100(0.1) 800(0.5) Drains 0 0 Shift Total(mL/kg) 700(9.9) 100(1.4) 800(11.3) NET -550 50 -500 Weight (kg) 70.8 70.8 70.8 70.8 70.8 70.8 Physical Exam: General - NAD, conversational, A&O x4 HEENT - NC/AT, PERRL, EOMI, MMM, clear conjunctivae Neck - Supple, no lymphadenopathy Pulmonary - CTAB, no crackles/wheezes/rale/rhonchi. Upper airway sounds noted. Cardiac - RRR, no murmurs appreciated. No JVD. Capillary refill normal. 3/4 radial and 3/4 DP pulses b/l Abdomen - Soft, NT/ND, +BS, no hepatosplenomegaly, PEG tube in place without erythema/induration Musculoskeletal - Moves all four extremities Extremities - LLE with below knee amputation. No clubbing, no cyanosis, no edema Skin - Appears to have Seborrheic Dermatitis on face/scalp. No rashes, lesions, or jaundice noted Neurologic - CN II-XII grossly intact. Largely nonverbal, but can follow verbal commands. No focal deficits Psych - Appropriate mood and affect Medications ?? SCHEDULED MEDICATIONS: ?? 0.9% NaCl injection 3 mL, Intracatheter, q8h ?? atorvastatin (Lipitor) tablet 40 mg, Enteral Tube, AT BEDTIME ?? cloBAZam (Onfi) tablet 20 mg, Enteral Tube, BID ?? cloBAZam (Onfi) tablet 20 mg, Enteral Tube, Once ?? divalproex sprinkle (Depakote Sprinkle) capsule 500 mg, Enteral Tube, q6h ?? folic acid (Folvite) tablet 1 mg, Enteral Tube, QDAY ?? guaiFENesin (Robitussin) solution 10 mL, Enteral Tube, q6h ?? lacosamide (Vimpat) tablet 200 mg, Enteral Tube, BID ?? levalbuterol (Xopenex) nebulizer solution 1.25 mg, Inhalation, q6h ?? levETIRAcetam (Keppra) oral solution 2,000 mg, Enteral Tube, BID ?? metoprolol tartrate IR (Lopressor) tablet 25 mg, Enteral Tube, BID ?? sodium chloride (Inhalant) 7 % nebulizer solution 4 mL, Inhalation, q6h ?? tamsulosin (Flomax) capsule 0.4 mg, Enteral Tube, QDAY ?? thiamine (Vitamin B-1) tablet 100 mg, Enteral Tube, QDAY ?? CONTINUOUS MEDICATIONS: ?? PRN MEDICATIONS: ?? Or ?? 0.9% NaCl injection 1-10 mL, Intracatheter, PRN ?? dextrose 10 % IV bolus, Intravenous, PRN ?? dextrose 10 % IV bolus, Intravenous, PRN ?? glucagon (Glucagen) injection 1 mg, Subcutaneous, PRN ?? glucose (Diabetic Use) (Dex4 Glucose) oral liquid, Oral, PRN ?? glucose (Diabetic Use) oral gel, Oral, PRN ?? glucose chew tablet 4 tablet, Oral, PRN ?? Home MEDICATIONS: Data Review CBC: Recent Labs Component Name 12/09/22 0552 12/08/2242712/07/22227 WBC 7.1 8.7 10.4 HGB 12.0 11.8* 11.2* PLTCOUNT 295 343 426* MCV 90.1 93.1 92.5 BMP: Recent Labs Component Name 12/09/2252 12/08/2242712/07/22227 NA 138 137 137 POTASSIUM 4.5 4.6* 4.7* CL 106 104 103 CO2 27 26 27 BUN 13 16 18 CREATININE 0.47* 0.49* 0.47* EGFR >90 >90 >90 GLUCOSE 112 105 95 CALCIUM 10.1 10.6* 10.6* ANIONGAP 10 12 12 Recent Labs Component Name 12/09/2252 12/08/2242712/07/22227 PHOS 2.8 2.8 3.0 MAGNESIUM 1.8 1.9 1.8 Hepatic: Recent Labs Component Name 12/09/2255112/08/2242712/07/2222711/26/22 0310 11/25/22 0335 11/04/22 0633 10/09/22 1204 PROT - - - - 6.9 7.7 6.9 ALB 2.3* 2.5* 2.4* - 2.6* 2.9* 3.0* TBILI - - - - 0.2 0.2 0.1* AST - - - - 24 25 15 ALT - - - - 24 27 10 ALKPHOS - - - - 85 124 83 - = values in this interval not displayed. Coagulation: Recent Labs Component Name 08/28/22222306/27/222214 PT 15.2* 12.8 INR 1.2 1.0 TSH: Recent Labs Component Name 11/27/22 1542 TSH 1.790 Cardiac markers: Recent Labs Component Name 07/11/22 0040 07/01/22 1634 06/28/22 0141 06/27/22 2215 05/30/22 1750 03/08/22 1455 12/31/21 0412 CKTOTAL 49 42 - - - - 77 TROPONINI - - <0.010 <0.010 <0.010 - - - = values in this interval not displayed. UA: Recent Labs Component Name 11/25/22 0005 08/28/22 1516 07/04/22 0145 COLORU Yellow Yellow Yellow CLARITYU Clear Slt Cloudy* Clear LABSPEC 1.009 1.010 1.010 KETONES Negative Negative Negative BILIRUBINUR Negative Negative Negative BLOODU Negative Negative Negative NITRITE Negative Negative Negative LEUKOCYTE Negative 2+* 1+* WBCU - 21-50* 6-10* URINEBACT - Trace* Trace* YEASTBUDDING - - Few* Microbiology: Reviewed in [facility] Imaging: Reviewed in [facility] Assessment and Plan: #Dysphagia s/p PEG placement #Severe Protein Calorie Malnutrition -??Tube feeds via PEG for nutrition at home - STACK YIELD ENGINEER consulted - over the last 2 years they have seen the patient several times and failed swallowstudy - 12/07 GES: abnormal, delayed gastric emptying with T1/2 >120 min. -----PLAN: - IR: consented for GJ tube placement, tentatively scheduled for 12/09. - Per Nutrition: after GJ tube placement resume tube feeds with Osmolite at 40 ml/hr, increasing by10 ml/hr q6hrs. - Assure patient is tolerating tube feeds before discharge. ?? #Intraoperative Ventricular Tachycardia -??Noted during ENT procedure on 11/26 with spontaneous conversion to sinus after 2-3 minutes -??Cardiology consult recommended no acute intervention -??Troponin within normal limits -----PLAN: - Continue telemetry -??Initiate amiodarone bolus with gtt if Vtach reoccurs -??Maintain K>4, Mg>2, hgb >9 ?? #Sinus Tachycardia #Hypertension #Premature Ventricular Contractions -??Heart rate and blood pressure stable on metoprolol tartrate 25mg -??Patient has HTN at baseline; was not on any SEAMAN meds - CT PE negative, TSH wnl -??24h urine metanephrines WNL -??Cardiology consult: consider workup for pheochromocytoma, titrate BP with gtts and transition with oral antihypertensives ?? #QTc prolongation -??Baseline 455,??prolonged to 526, most recent EKG 11/29 438 -----PLAN: -??Continue to monitor -??Avoid QT-prolonging medications ?? #PVD s/p L AKA -??On SEAMAN atorvastatin 40mg -??May resume??ASA??if no bleeding -----PLAN: - 12/09 discussed resuming ASA. Will consider restarting it 12/10 if tolerates IR procedure. ?? #Acute on Chronic Hypoxic Respiratory Failure s/p tracheostomy #Antrochoanal Polyp c/b bleeding -??Tracheostomy placed Jun 2022 during admission for aspiration pneumonia -??In senior living facility, 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 -??Surgical removal of bleeding polyp aborted due to Vtach run -??Epistat in place to control bleeding; posterior balloon deflated -??Extubated on 12/06 -----PLAN: -??SpO2 goal of 90% -??Continue SEAMAN guaifenesin, levalbuterol -??Hold SEAMAN scopolamine??patch -??f/u outpatient ENT ?? #Concern for Ventilator-Associated Pneumonia -??Patient developed low-grade fever on 11/28/22 -??Heavy pseudomonas growth and acinetobacter??in sputum cx -----PLAN: - ID??rec treatment with cefepime, completed??12/07/2022 ?? #Tracheal Bleeding - 2/2 antrochoanal polyp - Hgb??dropped 12.5->10.7, previously stable - HgB trending up, may resume??aspirin and chemical DVT ppx??while pt remains without bleeding -----PLAN: -??Lovenox 40 DVT ppx -??Trend CBC's daily -??Keep tracheostomy cuff inflated to prevent aspiration of blood -??ENT managing??epistat; posterior balloon deflated, anterior balloon partially deflated -??Afrin PRN -??ENT??to follow outpatient ?? #History of CVA c/b Left Sided Deficits #Dementia #Seizure Disorder -??On SEAMAN atorvastatin 40mg, Depakote 500mg q6h, Clobazam 20mg BID, ??Lacosamide 200mg BID, Midazolam 5mg nasal spray PRN -----PLAN: -??SEAMAN ASA??were held??due to??recent??bleeding, may resume if no epistaxis/nasal polyp bleeding - 12/09: discussed resuming ASA, will restart 12/10 if IR procedure is well tolerated ?? #BPH - on SEAMAN tamsulosin 0.4mg Lines: Trach collar, Jensen, PEG tube, PIV Prophylaxis: GI - none DVT - SCDs, Lovenox Nutrition: DIET NPO Except: NO EXCEPTIONS Code Status: Full Code Consults: IP CONSULT TO OTOLARYNGOLOGY IP CONSULT TO NUTRITIONAL SERV IP CONSULT TO RESPIRATORY IP CONSULT TO RADIOLOGY TEACHER IP CONSULT TO NUTRITIONAL SERV IP CONSULT TO NUTRITIONAL SERV IP CONSULT TO GENERAL SURGERY IP CONSULT TO INFECTIOUS DISEASES IP CONSULT TO INTERVENTIONAL RADIOLOGY This patient will be discussed with the Attending Dr. Macho Tucker Internal Medicine, PGY-1 12/09/2022 8:36 AM Associated attestation - Dina Pritchard DO - 12/09/2022 8:55 PM CDT I have seen and examined the patient with the resident and I agree with the findings and plan of care as documented by the resident. Active Problem List V-tach (CMS/HCC) (POA: No) History of CVA (cerebrovascular accident) (POA: Yes) Seizure disorder (CMS/HCC) (POA: Yes) Acute on chronic respiratory failure with hypoxia (CMS/HCC) (POA: Yes) Protein-calorie malnutrition, unspecified severity (CMS/HCC) (POA: Yes) Sinus tachycardia (POA: Unknown) Dementia, vascular (CMS/HCC) (POA: Yes) Nasal polyp (POA: Yes) Hemoptysis (POA: Yes) Acute blood loss anemia (POA: Yes) PEG (percutaneous endoscopic gastrostomy) status (CMS/HCC) (POA: Yes) Tracheostomy in place (CMS/HCC) (POA: Yes) Uncontrolled hypertension (POA: No) Plan Appreciate IR consultation as may be candidate for GJ tube. Advance TF following. Hgb remains stable. Continue holding ASA for now pending future procedure. May consider discussing risks/benefits of resuming with patient's POA. Date of Service: 12/09/2022 Dina Pritchard DO * Mara Sanders RN - 12/09/2022 3:24 AM CDT Problem: Fall Risk Goal: Fall risk and fall related injury risk are minimized (interventions related to the fall risk can be found in the flowsheet documentation) Outcome: Progressing Problem: Skin Integrity Goal: Skin integrity is maintained or improved Outcome: Progressing Problem: Nutrient: Malnutrition Goal: Enteral/parenteral nutrition prescription will be consistent with estimated needs Outcome: Progressing Problem: Pain/Discomfort Goal: Patient exhibits reduced pain/discomfort as evidenced by pain scores Outcome: Progressing Goal: Patient uses pharmacological and non-pharmacological pain management strategies. Outcome: Progressing Goal: Patient verbalizes acceptable level of pain relief and ability to engage in desired activity. Outcome: Progressing Problem: Mechanical Ventilation Goal: Patent airway Outcome: Progressing Goal: Tracheostomy will be managed safely Outcome: Progressing * Ivy Mata RN - 12/08/2022 8:49 AM CDT Case Management Progress Note Pt is new to this CM's caseload as of 12/08/2022. Continue to monitor until dc or transfer. Anticipated level of care at discharge: [facility]sp - Medicaid [place] Readmit Risk: 27 Readmission: Yes Anticipated Discharge Date: 12/10/22 Transportation at Discharge: Ambulance Transportation to MD: Ambulance Equipment at Home: Equipment at Home: Facility Equipment Additional DME needed: None noted at this time Pharmacy benefit: No Comments: Pt is NPO at midnight for gastric emptying study; waiting to see if pt is candidate for GJ tube placement by IR; resume feeds after study. Bowel regimen on hold until completion of study. Continue telemetry. Cardiology consult; considering workup for pheochromocytoma. Medication adjustments continue. Pt has PEG, trach (follow-up with ENT outpatient). Extubation on 12/07/2022. Continue tofollow. Ivy Mata RN, BSN [employer]visor [employer] [phone] * Clover Tucker DO - 12/08/2022 8:20 AM CDT Internal Medicine Progress Note Patient Name: Mojgan Tabor (62 year old) Room Number: 613/01 Hospital Day: 13 Admit Date: 11/24/2022 Subjective: Interval history: Patient seen and examined. No acute events overnight. Patient remained NPO overnight due to failinggastric empyting study. Patient responds to some questioning but ignores others. States he slept well but is having back pain. Hospital course: Mojgan Tabor??with??62 M??PMH of??chronic resp failure with new hypoxia, stroke, dementia, trach and PEG tube, and seizures??was admitted to the ICU following an ENT procedure??complicated by??intraoperative ventricular tachycardia.??The surgery was aborted due to Vtach run.??The patient spontaneously converted to sinus rhythm in the OR after 2-3 minutes. His course has been complicated by sinus tachycardia to the 140's and uncontrolled hypertension, which has improved with IV esmolol.??Switched from esmolol to metoprolol tartrate per cards recc.??Course complicated by presumed ventilator-associated pneumonia, treated with??Cefepime??that completed today 12/07/2022.??Extubated on 12/06 and has r emained on HHF/trach collar. Gastric emptying study to be completed with [facility] on 12/07/2022 to assess candidacy for GJ tube. Objective: T: 98.4 ??F (36.9 ??C) [Temp Min: 98.4 ??F (36.9 ??C) Max: 99.1 ??F (37.3 ??C)] HR: 94[Pulse Min: 89 Max: 96] BP: 110/76[BP Min: 110/76 Max: 136/73] MAP: 86[MAP (mmHg) Min: 84 Max: 92] RR: 17[Resp Min: 17 Max: 21] Sat: 93 %[SpO2 Min: 93 % Max: 100 %] Date 12/07/22699 - 12/08/2265812/08/22699 - 12/09/22 0659 Shift 1769-9739 7209-6424 24 Hour Total 9309-9466 9843-4842 24 Hour Total INTAKE Tube 40 40 Shift Total(mL/kg) 40(0.6) 40(0.6) OUTPUT Urine(mL/kg/hr) 440(0.5) 1500(1.8) 1940(1.1) Shift Total(mL/kg) 440(6.2) 1500(21.2) 1940(27.4) NET -400 -1500 -1900 Weight (kg) 70.8 70.8 70.8 70.8 70.8 70.8 Physical Exam: General - NAD, conversational, A&O x4 HEENT - NC/AT, PERRL, EOMI, MMM, clear conjunctivae Neck - Supple, no lymphadenopathy Pulmonary - CTAB, no crackles/wheezes/rale/rhonchi. Upper airway sounds noted. Cardiac - RRR, no murmurs appreciated. No JVD. Capillary refill normal. 3/4 radial and 3/4 DP pulses b/l Abdomen - Soft, NT/ND, +BS, no hepatosplenomegaly, PEG tube in place without erythema/induration Musculoskeletal - Moves all four extremities Extremities - LLE with below knee amputation. No clubbing, no cyanosis, no edema Skin - Appears to have Seborrheic Dermatitis on face/scalp. No rashes, lesions, or jaundice noted Neurologic - CN II-XII grossly intact. Largely nonverbal, but can follow verbal commands. No focal deficits Psych - Appropriate mood and affect Medications ?? SCHEDULED MEDICATIONS: ?? 0.9% NaCl injection 3 mL, Intracatheter, q8h ?? atorvastatin (Lipitor) tablet 40 mg, Enteral Tube, AT BEDTIME ?? cloBAZam (Onfi) tablet 20 mg, Enteral Tube, BID ?? cloBAZam (Onfi) tablet 20 mg, Enteral Tube, Once ?? divalproex sprinkle (Depakote Sprinkle) capsule 500 mg, Enteral Tube, q6h ?? enoxaparin (Lovenox) injection 40 mg, Subcutaneous, QDAY ?? folic acid (Folvite) tablet 1 mg, Enteral Tube, QDAY ?? guaiFENesin (Robitussin) solution 10 mL, Enteral Tube, q6h ?? lacosamide (Vimpat) tablet 200 mg, Enteral Tube, BID ?? levalbuterol (Xopenex) nebulizer solution 1.25 mg, Inhalation, q6h ?? levETIRAcetam (Keppra) tablet 2,000 mg, Enteral Tube, BID ?? metoprolol tartrate IR (Lopressor) tablet 25 mg, Enteral Tube, BID ?? sodium chloride (Inhalant) 7 % nebulizer solution 4 mL, Inhalation, q6h ?? tamsulosin (Flomax) capsule 0.4 mg, Enteral Tube, QDAY ?? thiamine (Vitamin B-1) tablet 100 mg, Enteral Tube, QDAY ?? [COMPLETED] Tc-99m sulfur colloid injection SOLN 0.6 millicurie, Oral, Once ?? CONTINUOUS MEDICATIONS: ?? PRN MEDICATIONS: ?? Or ?? 0.9% NaCl injection 1-10 mL, Intracatheter, PRN ?? dextrose 10 % IV bolus, Intravenous, PRN ?? dextrose 10 % IV bolus, Intravenous, PRN ?? glucagon (Glucagen) injection 1 mg, Subcutaneous, PRN ?? glucose (Diabetic Use) (Dex4 Glucose) oral liquid, Oral, PRN ?? glucose (Diabetic Use) oral gel, Oral, PRN ?? glucose chew tablet 4 tablet, Oral, PRN ?? Home MEDICATIONS: Data Review CBC: Recent Labs Component Name 12/08/2242712/07/2222712/06/22309 WBC 8.7 10.4 7.3 HGB 11.8* 11.2* 11.1* PLTCOUNT 343 426* 435* MCV 93.1 92.5 91.8 BMP: Recent Labs Component Name 12/08/2242712/07/2222712/06/22309 NA 137 137 139 POTASSIUM 4.6* 4.7* 4.8* CL 104 103 105 CO2 26 27 26 BUN 16 18 16 CREATININE 0.49* 0.47* 0.38* EGFR >90 >90 >90 GLUCOSE 105 95 117* CALCIUM 10.6* 10.6* 10.2 ANIONGAP 12 12 13 Recent Labs Component Name 12/08/2242712/07/2222712/06/22309 PHOS 2.8 3.0 2.8 MAGNESIUM 1.9 1.8 2.0 Hepatic: Recent Labs Component Name 12/08/22 0428 12/07/22 0228 12/06/22 0310 11/26/22 0310 11/25/22 0335 11/04/22 0633 10/09/22 1204 PROT - - - - 6.9 7.7 6.9 ALB 2.5* 2.4* 2.3* - 2.6* 2.9* 3.0* TBILI - - - - 0.2 0.2 0.1* AST - - - - 24 25 15 ALT - - - - 24 27 10 ALKPHOS - - - - 85 124 83 - = values in this interval not displayed. Coagulation: Recent Labs Component Name 08/28/22 2224 06/27/22 2215 PT 15.2* 12.8 INR 1.2 1.0 TSH: Recent Labs Component Name 11/27/22 1542 TSH 1.790 Cardiac markers: Recent Labs Component Name 07/11/22 0040 07/01/22 1634 06/28/22 0141 06/27/22 2215 05/30/22 1750 03/08/22 1455 12/31/21 0412 CKTOTAL 49 42 - - - - 77 TROPONINI - - <0.010 <0.010 <0.010 - - - = values in this interval not displayed. UA: Recent Labs Component Name 11/25/22 0005 08/28/22 1516 07/04/22 0145 COLORU Yellow Yellow Yellow CLARITYU Clear Slt Cloudy* Clear LABSPEC 1.009 1.010 1.010 KETONES Negative Negative Negative BILIRUBINUR Negative Negative Negative BLOODU Negative Negative Negative NITRITE Negative Negative Negative LEUKOCYTE Negative 2+* 1+* WBCU - 21-50* 6-10* URINEBACT - Trace* Trace* YEASTBUDDING - - Few* Microbiology: Reviewed in [facility] Imaging: Reviewed in [facility] Assessment and Plan: #Dysphagia s/p PEG placement #Severe Protein Calorie Malnutrition - Tube feeds via PEG for nutrition at home - STACK YIELD ENGINEER consulted - over the last 2 years they have seen the patient several times and failed swallowstudy - 12/07 GES: abnormal, delayed gastric emptying with T1/2 >120 min. -----PLAN: - IR consulted, unable to see patient until 12/10 for GJ Tube placement - Per Nutrition: will resume tube feeds with Osmolite at 40 ml/hr, increasing by 10 ml/hr q6hrs. ?? #Intraoperative Ventricular Tachycardia - Noted during ENT procedure on 11/26 with spontaneous conversion to sinus after 2-3 minutes - Cardiology consult recommended no acute intervention - Troponin within normal limits -----PLAN: - Continue telemetry -??Initiate amiodarone bolus with gtt if Vtach reoccurs -??Maintain K>4, Mg>2, hgb >9 ?? #Sinus Tachycardia #Hypertension #Premature Ventricular Contractions - Heart rate and blood pressure stable on metoprolol tartrate 25mg - Patient has HTN at baseline; was not on any SEAMAN meds - CT PE negative, TSH wnl -??24h urine metanephrines WNL - Cardiology consult: consider workup for pheochromocytoma, titrate BP with gtts and transition with oral antihypertensives ?? #QTc prolongation - Baseline 455,??prolonged to 526, most recent EKG 11/29 438 -----PLAN: -??Continue to monitor -??Avoid QT-prolonging medications ?? #PVD s/p L AKA - On SEAMAN atorvastatin 40mg -??May resume??ASA??if no bleeding ?? #Acute on Chronic Hypoxic Respiratory Failure s/p tracheostomy #Antrochoanal Polyp c/b bleeding - Tracheostomy placed Jun 2022 during admission for aspiration pneumonia -??In [facility], 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 - Surgical removal of bleeding polyp aborted due to Vtach run - Epistat in place to control bleeding; posterior balloon deflated -??Extubated on 12/06 -----PLAN: -??SpO2 goal of 90% -??Continue SEAMAN guaifenesin, levalbuterol -??Hold SEAMAN scopolamine??patch -??f/u outpatient ENT ?? #Concern for Ventilator-Associated Pneumonia - Patient developed low-grade fever on 11/28/22 -??Heavy pseudomonas growth and acinetobacter??in sputum cx -----PLAN: - ID??rec treatment with cefepime, completed??12/07/2022 ?? #Tracheal Bleeding - 2/2 antrochoanal polyp - Hgb??dropped 12.5->10.7, previously stable - HgB trending up, may resume??aspirin and chemical DVT ppx??while pt remains without bleeding -----PLAN: - Lovenox 40 DVT ppx -??Trend CBC's daily -??Keep tracheostomy cuff inflated to prevent aspiration of blood -??ENT managing??epistat; posterior balloon deflated, anterior balloon partially deflated -??Afrin PRN -??ENT??to follow outpatient ?? #History of CVA c/b Left Sided Deficits #Dementia #Seizure Disorder - On SEAMAN atorvastatin 40mg, Depakote 500mg q6h, Clobazam 20mg BID, ??Lacosamide 200mg BID, Midazolam 5mg nasal spray PRN -----PLAN: -??SEAMAN ASA??were held??due to??recent??bleeding, may resume if no epistaxis/nasal polyp bleeding - 12/08: discuss on rounds 12/09 if should resume ASA ?? #BPH - on SEAMAN tamsulosin 0.4mg Lines: Trach collar, Jensen, PEG tube, PIV Prophylaxis: GI - none DVT - SCDs, Lovenox Nutrition: DIET NPO Except: NO EXCEPTIONS Code Status: Full Code Consults: IP CONSULT TO OTOLARYNGOLOGY IP CONSULT TO NUTRITIONAL SERV IP CONSULT TO RESPIRATORY IP CONSULT TO RADIOLOGY TEACHER IP CONSULT TO NUTRITIONAL SERV IP CONSULT TO NUTRITIONAL SERV IP CONSULT TO GENERAL SURGERY IP CONSULT TO INFECTIOUS DISEASES This patient will be discussed with the Attending Dr. Macho Tucker DO Internal Medicine, PGY-1 12/08/2022 8:21 AM Associated attestation - Dina Pritchard DO - 12/09/2022 8:47 PM CDT I have seen and examined the patient with the resident and I agree with the findings and plan of care as documented by the resident. In addition: Initially admitted with bleeding suspected from antrochoanal polyp with ENT procedure c/b vtach. Hospital course also complicated by PNA treated with cefepime. Given his history of recurrent aspiration PNA, candidacy of GJ tube is under evaluation. Active Problem List V-tach (CMS/HCC) (POA: No) History of CVA (cerebrovascular accident) (POA: Yes) Seizure disorder (CMS/HCC) (POA: Yes) Acute on chronic respiratory failure with hypoxia (CMS/HCC) (POA: Yes) Protein-calorie malnutrition, unspecified severity (CMS/HCC) (POA: Yes) Sinus tachycardia (POA: Unknown) Dementia, vascular (CMS/HCC) (POA: Yes) Nasal polyp (POA: Yes) Hemoptysis (POA: Yes) Acute blood loss anemia (POA: Yes) PEG (percutaneous endoscopic gastrostomy) status (CMS/HCC) (POA: Yes) Tracheostomy in place (CMS/HCC) (POA: Yes) Uncontrolled hypertension (POA: No) Plan Gastric emptying study abnormal. Appreciate IR consultation as may be candidate for GJ tube. Completed abx for aspiration PNA. Monitor closely for new signs of infection. Hgb remains stable. Continue holding ASA for now pending future procedure. May consider discussing risks/benefits of resuming with patient's POA. Continue metoprolol. Date of Service: 12/08/2022 Dina Pritchard DO * Nano Andrade, ALFRED - 12/08/2022 1:14 AM CDT Problem: Fall Risk Goal: Fall risk and fall related injury risk are minimized (interventions related to the fall risk can be found in the flowsheet documentation) Outcome: Not Progressing Problem: Skin Integrity Goal: Skin integrity is maintained or improved Outcome: Not Progressing Problem: Nutrient: Malnutrition Goal: Enteral/parenteral nutrition prescription will be consistent with estimated needs Outcome: Not Progressing Problem: Pain/Discomfort Goal: Patient exhibits reduced pain/discomfort as evidenced by pain scores Outcome: Not Progressing Goal: Patient uses pharmacological and non-pharmacological pain management strategies. Outcome: Not Progressing Goal: Patient verbalizes acceptable level of pain relief and ability to engage in desired activity. Outcome: Not Progressing Problem: Mechanical Ventilation Goal: Patent airway Outcome: Not Progressing Goal: Tracheostomy will be managed safely Outcome: Not Progressing * Maya Reece RN - 12/07/2022 6:19 PM CDT Problem: Fall Risk Goal: Fall [...] engage in desired activity. Outcome: Progressing Problem: Mechanical Ventilation Goal: Patent airway Outcome: Progressing Goal: Tracheostomy will be managed safely Outcome: Progressing * Clover Tucker, - 12/07/2022 3:37 PM CDT Internal Medicine Progress Note Patient Name: Mojgan Tabor (62 year old) Room Number: 613/01 Hospital Day: 12 Admit Date: 11/24/2022 Subjective: Interval history: Patient seen and examined. No acute events overnight. Patient is an ICU transfer. Patient seen after he returned from gastric emptying study. Patient sister and POAAdriane, at bedside to help answer questions. Patient struggles to answer questions. No nausea, vomiting, diarrhea, or chest pain. Hospital course: Mojgan Tabor??with??62 M??PMH of??chronic resp failure with new hypoxia, stroke, dementia, trach and PEG tube, and seizures??was admitted to the ICU following an ENT procedure??complicated by??intraoperative ventricular tachycardia.??The surgery was aborted due to Vtach run.??The patient spontaneously converted to sinus rhythm in the OR after 2-3 minutes. His course has been complicated by sinus tachycardia to the 140's and uncontrolled hypertension, which has improved with IV esmolol.??Switched from esmolol to metoprolol tartrate per cards recc.??Course complicated by presumed ventilator-associated pneumonia, treated with??Cefepime that completed today 12/07/2022. Extubated on 12/06 and has rem ained on HHF/trach collar. Gastric emptying study to be completed with [facility] on 12/07/2022 to assess candidacy for GJ tube. Objective: T: 98.4 ??F (36.9 ??C) [Temp Min: 97.9 ??F (36.6 ??C) Max: 98.8 ??F (37.1 ??C)] HR: 94[Pulse Min: 80 Max: 105] BP: 124/77[BP Min: 96/68 Max: 147/86] MAP: 89[MAP (mmHg) Min: 73 Max: 102] RR: 19[Resp Min: 11 Max: 26] Sat: 97 %[SpO2 Min: 93 % Max: 100 %] Date 12/06/22699 - 12/07/2265812/07/22699 - 12/08/22 0659 Shift 3904-0509 5268-9949 24 Hour Total 1971-7826 9341-9483 24 Hour Total INTAKE I.V.(mL/kg/hr) 294.8(0.4) 85.6(0.1) 380.3(0.2) Tube 500 300 800 40 40 Enteral 619 570 1345 Shift Total(mL/kg) 1554.8(22.6) 815.6(11.5) 2370.3(33.5) 40(0.6) 40(0.6) OUTPUT Urine(mL/kg/hr) 885(1.1) 1225(1.4) 2110(1.2) 440 440 Shift Total(mL/kg) 885(12.8) 1225(17.3) 2110(29.8) 440(6.2) 440(6.2) NET 669.8 -409.5 260.3 -400 -400 Weight (kg) 68.9 70.8 70.8 70.8 70.8 70.8 Physical Exam: General - NAD, conversational, A&O x4 HEENT - NC/AT, PERRL, EOMI, MMM, clear conjunctivae Neck - Supple, no lymphadenopathy, trach in place Pulmonary - CTAB, no crackles/wheezes/rales/rhonchi, upper lung sounds appreciated Cardiac - RRR, no murmurs appreciated. No JVD. Capillary refill normal. 3/4 radial and 3/4 DP pulses b/l Abdomen - Soft, NT/ND, +BS, no hepatosplenomegaly, PEG tube in place without erythema/induration Musculoskeletal - Moves all four extremities Extremities - LLE with below knee amputation. No clubbing, no cyanosis, no edema Skin - No rashes, lesions, or jaundice noted Neurologic - CN II-XII grossly intact. Largely nonverbal, but can follow verbal commands. No focal deficits Psych - Appropriate mood and affect Medications ?? SCHEDULED MEDICATIONS: ?? 0.9% NaCl injection 3 mL, Intracatheter, q8h ?? atorvastatin (Lipitor) tablet 40 mg, Enteral Tube, AT BEDTIME ?? cloBAZam (Onfi) tablet 20 mg, Enteral Tube, BID ?? cloBAZam (Onfi) tablet 20 mg, Enteral Tube, Once ?? divalproex sprinkle (Depakote Sprinkle) capsule 500 mg, Enteral Tube, q6h ?? enoxaparin (Lovenox) injection 40 mg, Subcutaneous, QDAY ?? folic acid (Folvite) tablet 1 mg, Enteral Tube, QDAY ?? guaiFENesin (Robitussin) solution 10 mL, Enteral Tube, q6h ?? lacosamide (Vimpat) tablet 200 mg, Enteral Tube, BID ?? levalbuterol (Xopenex) nebulizer solution 1.25 mg, Inhalation, q6h ?? levETIRAcetam (Keppra) tablet 2,000 mg, Enteral Tube, BID ?? metoprolol tartrate IR (Lopressor) tablet 25 mg, Enteral Tube, BID ?? sodium chloride (Inhalant) 7 % nebulizer solution 4 mL, Inhalation, q6h ?? tamsulosin (Flomax) capsule 0.4 mg, Enteral Tube, QDAY ?? thiamine (Vitamin B-1) tablet 100 mg, Enteral Tube, QDAY ?? [COMPLETED] cefepime (Maxipime) 2,000 mg in 0.9% NaCl IV 50 mL IVPB, Intravenous, q8h ?? [COMPLETED] Tc-99m sulfur colloid injection SOLN 0.6 millicurie, Oral, Once ?? CONTINUOUS MEDICATIONS: ?? PRN MEDICATIONS: ?? Or ?? 0.9% NaCl injection 1-10 mL, Intracatheter, PRN ?? dextrose 10 % IV bolus, Intravenous, PRN ?? dextrose 10 % IV bolus, Intravenous, PRN ?? glucagon (Glucagen) injection 1 mg, Subcutaneous, PRN ?? glucose (Diabetic Use) (Dex4 Glucose) oral liquid, Oral, PRN ?? glucose (Diabetic Use) oral gel, Oral, PRN ?? glucose chew tablet 4 tablet, Oral, PRN ?? Home MEDICATIONS: Data Review CBC: Recent Labs Component Name 12/07/2222712/06/2230912/05/22317 WBC 10.4 7.3 8.5 HGB 11.2* 11.1* 10.6* PLTCOUNT 426* 435* 407* MCV 92.5 91.8 91.2 BMP: Recent Labs Component Name 12/07/2222712/06/2230912/05/22317 NA 137 139 137 POTASSIUM 4.7* 4.8* 4.5 CL 103 105 105 CO2 27 26 26 BUN 18 16 16 CREATININE 0.47* 0.38* 0.43* EGFR >90 >90 >90 GLUCOSE 95 117* 131* CALCIUM 10.6* 10.2 10.3* ANIONGAP 12 13 11 Recent Labs Component Name 12/07/2222712/06/2230912/05/22317 PHOS 3.0 2.8 2.7* MAGNESIUM 1.8 2.0 1.9 Hepatic: Recent Labs Component Name 12/07/2222712/06/2230912/05/2231711/26/2230911/25/22 0335 11/04/22 0633 10/09/22 1204 PROT - - - - 6.9 7.7 6.9 ALB 2.4* 2.3* 2.2* - 2.6* 2.9* 3.0* TBILI - - - - 0.2 0.2 0.1* AST - - - - 24 25 15 ALT - - - - 24 27 10 ALKPHOS - - - - 85 124 83 - = values in this interval not displayed. Coagulation: Recent Labs Component Name 08/28/22222306/27/222214 PT 15.2* 12.8 INR 1.2 1.0 TSH: Recent Labs Component Name 11/27/22 1542 TSH 1.790 Cardiac markers: Recent Labs Component Name 07/11/22 0040 07/01/22 1634 06/28/22 0141 06/27/22 2215 05/30/22 1750 03/08/22 1455 12/31/21 0412 CKTOTAL 49 42 - - - - 77 TROPONINI - - <0.010 <0.010 <0.010 - - - = values in this interval not displayed. UA: Recent Labs Component Name 11/25/22 0005 08/28/22 1516 07/04/22 0145 COLORU Yellow Yellow Yellow CLARITYU Clear Slt Cloudy* Clear LABSPEC 1.009 1.010 1.010 KETONES Negative Negative Negative BILIRUBINUR Negative Negative Negative BLOODU Negative Negative Negative NITRITE Negative Negative Negative LEUKOCYTE Negative 2+* 1+* WBCU - 21-50* 6-10* URINEBACT - Trace* Trace* YEASTBUDDING - - Few* Microbiology: Reviewed in [facility] Imaging: Reviewed in [facility] Assessment and Plan: #Dysphagia s/p PEG placement #Severe Protein Calorie Malnutrition - Tube feeds via PEG for nutrition at home - STACK YIELD ENGINEER consulted - over the last 2 years they have seen the patient several times and failed swallowstudy -----PLAN: - Gastric emptying study today 12/07 with [facility] to assess candidacy for GJ tube placement by IR. Remain NPO for now until results return. #Intraoperative Ventricular Tachycardia - Noted during ENT procedure on 11/26 with spontaneous conversion to sinus after 2-3 minutes - Cardiology consult recommended no acute intervention - Troponin within normal limits -----PLAN: - Continue telemetry -??Initiate amiodarone bolus with gtt if Vtach reoccurs - Maintain K>4, Mg>2, hgb >9 #Sinus Tachycardia #Hypertension #Premature Ventricular Contractions - Heart rate and blood pressure stable on metoprolol tartrate 25mg - Patient has HTN at baseline; was not on any SEAMAN meds - CT PE negative, TSH wnl -??24h urine metanephrines WNL - Cardiology consult: consider workup for pheochromocytoma, titrate BP with gtts and transition with oral antihypertensives #QTc prolongation - Baseline 455, prolonged to 526, most recent EKG 11/29 438 -----PLAN: -??Continue to monitor - Avoid QT-prolonging medications #PVD s/p L AKA - On SEAMAN atorvastatin 40mg - May resume ASA??if no bleeding #Acute on Chronic Hypoxic Respiratory Failure s/p tracheostomy #Antrochoanal Polyp c/b bleeding - Tracheostomy placed Jun 2022 during admission for aspiration pneumonia -??In senior living facility, 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 - Surgical removal of bleeding polyp aborted due to Vtach run - Epistat in place to control bleeding; posterior balloon deflated - Extubated on 12/06 -----PLAN: -??SpO2 goal of 90% -??Continue SEAMAN guaifenesin, levalbuterol -??Hold SEAMAN scopolamine??patch -??f/u outpatient ENT #Concern for Ventilator-Associated Pneumonia - Patient developed low-grade fever on 11/28/22 -??Heavy pseudomonas growth and acinetobacter??in sputum cx -----PLAN: - ID??rec treatment with cefepime, completed 12/07/2022 #Tracheal Bleeding - 2/2 antrochoanal polyp - Hgb??dropped 12.5->10.7, previously stable - HgB trending up, may resume aspirin and chemical DVT ppx while pt remains without bleeding -----PLAN: - Lovenox 40 DVT ppx - Trend CBC's daily - Keep tracheostomy cuff inflated to prevent aspiration of blood -??ENT managing??epistat; posterior balloon deflated, anterior balloon partially deflated - Afrin PRN -??ENT??to follow outpatient #History of CVA c/b Left Sided Deficits #Dementia #Seizure Disorder - On SEAMAN atorvastatin 40mg, Depakote 500mg q6h, Clobazam 20mg BID, ??Lacosamide 200mg BID, Midazolam 5mg nasal spray PRN -----PLAN: - SEAMAN ASA??were held due to??recent??bleeding, may resume if no epistaxis/nasal polyp bleeding #BPH - on SEAMAN tamsulosin 0.4mg Lines: Trach collar, Jensen, PEG tube, PIV Prophylaxis: GI - none DVT - SCDs, Lovenox Nutrition: DIET TUBE FEEDING CONTINUOUS DIET NPO Except: NO EXCEPTIONS Code Status: Full Code Consults: IP CONSULT TO OTOLARYNGOLOGY IP CONSULT TO NUTRITIONAL SERV IP CONSULT TO RESPIRATORY IP CONSULT TO RADIOLOGY TEACHER IP CONSULT TO NUTRITIONAL SERV IP CONSULT TO NUTRITIONAL SERV IP CONSULT TO GENERAL SURGERY IP CONSULT TO INFECTIOUS DISEASES This patient will be discussed with the Attending Dr. Macho Tucker, DO Internal Medicine, PGY-1 12/07/2022 3:37 PM Associated attestation - Dina Pritchard DO - 12/09/2022 8:50 PM CDT I have reviewed the findings and plan of care as documented by the resident. In addition: Please see attestation from progress note 12/08. Date of Service: 12/08/2022 Dina Pritchard DO * Ana Castro, MINH/LDN - 12/07/2022 2:05 PM CDT Nutrition Re-Assessment Brief Synopsis: Patient is diagnosed with severe malnutrition; Specific criteria can be found in assessment below Nutrition Plan: NPO + TF Start TF at 30 ml/hr, advance 10 ml q6 hrs until at goal Tube Feeding Recommendations: - if passes gastric emptying study Continuous: TwoCal HN at 50 ml/hr. Provides 2400 kcal, 100 g protein, 261g CHO, 840 ml free water. +250 ml q4 hrs free water flush or per MD if not on additional fluids Tube Feeding Recommendations: - if fails gastric emptying study Continuous: Osmolite 1.2 at 80 ml/hr. Provides 2304 kcals, 107 g pro, 302 g carbohydrate, 1574 ml free water +150 ml q4 hrs free water flush or per MD if not on additional fluids Tube Feeding Recommendations: - if electrolytes are elevated Continuous: Nepro at 55 ml/hr. Provides 2376 kcal, 107 g protein, 213 g carbohydrate, 960 ml free water. +250 ml q4 hrs free water flush or per MD if not on additional fluids Recommendations to Physician: Alter TF order, see TF recs above Start bowel regimen - No BM in 4 days Comments: Pt scheduled for reassessment. TF held today for gastric emptying study. Recommend altering TF order before re-starting TF, see TF recs above. LBM reported 12/03, see recs above. Will continue to follow. Assessment: Med/Surg History and Clinical Diagnoses: 62 year old male w/PMHx significant for prior CVA c/b left-sided residual deficits, seizure disorder, dementia, dysphagia w/ recurrent aspiration s/p PEG, zenker divertiuculum s/p diverticulectomy 2022, chronic hypoxic respiratory faiure s/p trach 06/2022, PVD s/p L AKA, and HTN who [facility]) for acute on chronic hypoxic respiratory failure and evaluation of bleeding from tracheostomy Diet order accuracy Current diet order: NPO Current supplement order: None Current tube feeding order: Promote at 65mL/hr Nutrition recommendation: alter/change nutrition order P.O.Intake for the past 48 hrs:No data recorded Supplement(s) Consumed- Last 48 hours None Food Allergies: No known food allergies GI Concerns: Constipation;Other (Comment) (PEG) Chewing/Swallowing: Other (Comment) (ETT) Pain affecting intake: No Admission weight: Weight: 54.9 kg (121 lb) (11/25/22 0620) Recent Weights/Methods 11/30/2022 0344 12/01/2022 0347 12/02/2022 0355 12/03/2022 0229 12/04/2022 0333 12/05/2022 0321 12/06/2022 0311 12/07/2022 0600 Weight: 69.2 kg (152 lb 8 oz) 68.6 kg (151 lb 3.2 oz) 70.3 kg (155 lb) 73.3 kg (161 lb 9.6 oz) 70 kg (154 lb 4.8 oz) 68.7 kg (151 lb 6.4 oz) 68.9 kg (152 lb) 70.8 kg (156 lb 1.6 oz) Weight Method (Utilize Scales): Bedscale Bedscale Bedscale Bedscale Bedscale Bedscale Bedscale Bedscale Wt Comments: Weight appears to be trending back up; monitoring Height: 177.8 cm (5' 10 ) IBW/lb (Calculated) Male: 166 , Laboratory values reviewed. Recent Labs Component Name 12/07/228 12/06/22 03112/05/228 11/26/22 0310 11/25/22 0335 11/04/22 0633 10/12/22 0716 10/09/22 1204 BUN 18 16 16 - 16 14 - 14 CREATININE 0.47* 0.38* 0.43* - 0.45* 0.47* - 0.39* NA 137 139 137 - 138 136 - 140 POTASSIUM 4.7* 4.8* 4.5 - 4.5 4.0 - 4.0 CL 103 105 105 - 108* 106 - 108* CO2 27 26 26 - 26 24 - 24 GLUCOSE 95 117* 131* - 91 98 - 115 CALCIUM 10.6* 10.2 10.3* - 9.5 9.7 - 9.8 PROT - - - - 6.9 7.7 - 6.9 ALB 2.4* 2.3* 2.2* - 2.6* 2.9* - 3.0* TBILI - - - - 0.2 0.2 - 0.1* ALKPHOS - - - - 85 124 - 83 ALT - - - - 24 27 - 10 AST - - - - 24 25 - 15 ANIONGAP 12 13 11 - 9 10 - 12 BCR 38* 42* 37* - 36* 30* - 36* OSMOLALITY 286 290 287 - 287 282 - 291 AGRATIO - - - - 0.6* 0.6* - 0.8* EGFR >90 >90 >90 - >90 >90 - >90 - = values in this interval not displayed. Medications noted. Current Facility-Administered Medications Medication ??? 0.9% NaCl injection 3 mL And ??? 0.9% NaCl injection 1-10 mL ??? atorvastatin (Lipitor) tablet 40 mg ??? cloBAZam (Onfi) tablet 20 mg ??? cloBAZam (Onfi) tablet 20 mg ??? dextrose 10 % IV bolus Or ??? dextrose 10 % IV bolus ??? divalproex sprinkle (Depakote Sprinkle) capsule 500 mg ??? enoxaparin (Lovenox) injection 40 mg ??? folic acid (Folvite) tablet 1 mg ??? glucagon (Glucagen) injection 1 mg ??? glucose (Diabetic Use) (Dex4 Glucose) oral liquid ??? glucose (Diabetic Use) oral gel ??? glucose chew tablet 4 tablet ??? guaiFENesin (Robitussin) solution 10 mL ??? lacosamide (Vimpat) tablet 200 mg ??? levalbuterol (Xopenex) nebulizer solution 1.25 mg ??? levETIRAcetam (Keppra) tablet 2,000 mg ??? metoprolol tartrate IR (Lopressor) tablet 25 mg ??? sodium chloride (Inhalant) 7 % nebulizer solution 4 mL ??? tamsulosin (Flomax) capsule 0.4 mg ??? thiamine (Vitamin B-1) tablet 100 mg Skin/Wound: surgical incision on nose Estimated Energy Needs: KCAL: 7721-1803 (30-35kcal/kg (ABW)) Protein (g): 90g (1.3g/kg (ABW)) Fluid (ml): 1 ml/kcal Needs based on: Kcal/kg- (Comment) (ABW 70.8kg) Recommended Access Route: TF Malnutrition Etiology: Malnutrition in the context of: chronic disease, Malnutrition Severity: Severe Unintended weight change: Severe weight loss Weight Loss: > 7.5% x 3 months BMI: Body mass index is 22.4 kg/m??. GI Concerns: Constipation;Other (Comment) (PEG) Nutrition Focused Physical Assessment: Loss of Subcutaneous Fat Orbital: Severe Buccal: Severe Muscle Loss Temples (Temporalis Muscle): Severe Clavicles (Pectoralis & Deltoids): Severe Shoulders (Deltoids): Severe Thigh (Quadriceps): Severe Education needed: None Education Provided: Not appropriate Nutrition Care Process (1) Nutrition Diagnostic Statement: Malnutrition severity: : Severe related to:: inadequate protein-energy intake as evidenced by:: unintentional weight loss;loss of subcutaneous fat;loss of muscle mass;BMI less than 19 Nutrition Diagnostic Statement Progress: Nutrition problem continues Nutrition Intervention: Enteral nutrition: Monitoring: TF, BM, labs, meds, weight Evaluation: Nutrition Goal: Enteral/Parenteral Nutrition prescription will be consistent with estimated nutrient needs Nutrition Goal Timeframe: Throughout stay Nutrition Goal Progress: Continue with current goal [id number] * Tejas Jeffries DO - 12/07/2022 1:27 PM CDT ICU to [facility] Transfer Summary I ICU Admission Reason & Brief ICU Course: Mojgan Tabor??with??62 M??PMH of??chronic resp failure with new hypoxia, stroke, dementia, trach and PEG tube, and seizures??was admitted to the ICU following an ENT procedure??complicated by??intraoperative ventricular tachycardia.??The surgery was aborted due to Vtach run.??The patient spontaneously converted to sinus rhythm in the OR after 2-3 minutes. His course has been complicated by sinus tachycardia to the 140's and uncontrolled hypertension, which has improved with IV esmolol.??Switched from esmolol to metoprolol tartrate per cards recc.??Course complicated by presumed ventilator-associated pneumonia, treated with??Cefepime that completed today 12/07/2022. Extubated on 12/06 and has rem ained on HHF/trach collar. Gastric emptying study to be completed with Nuc Med on 12/07/2022 to assess candidacy for GJ tube. C Code Status/DPOA Info/Goals of Care/ACP Note: FULL U Unprescribing & Pertinent High-Risk Medications: Changes to home meds: Metoprolol tartrate 26 mg BID, enteral Anticoagulation: [*] VTE Prophylaxis - Lovenox 40mg inj [ ] None - reason: [ ] Therapeutic anticoagulation - Antibiotics: [*] N/A - Completed 12/07/2022, no current planned antimicrobioals [ ] indication start date planned duration P Pending Tests at the Time of Transfer: Gastric Emptying Study with Nuc Med to assess candidacy for GJ tube. If Not a candidate, pt can likely return to nursing facility with current PEG. If deemed patient IS a candidate for GJ tube, please consult IR for placement. A Active consultants, including Rehab: [*] Subspecialty Consultants: ENT, cardiology [ ] PT [ ] OT [ ] STACK YIELD ENGINEER [ ] Wound Care U Uncertainty Measure/Diagnostic Pause: Working diagnosis at the time of transfer is resolved intraoperative vtach Select from the followin: High degree of certainty about the clinical diagnosis. 2. Some uncertainty about the clinical diagnosis. 3. Marked uncertainty about the clinical diagnosis. S Summary of Major Problems and To-Dos: 1. Continue metoprolol tartrate 25mg, cont other home meds 2. Complete gastric emptying study for GJ tube candidacy 3. After return from study, resume feeds, start bowel regimen 4. Resume ASA if no bleeding 5. ENT to follow outpatient To-do list prior to transfer: [ ] [ ] E Exam at the time of transfer, including Lines/Drains/Airways & Data Review: PIV, Trach collar, PEG, Jensen, Nasal incision site w/ epistat [ ] Difficult airway? [ ] Lines/drains assessed for removal? * Tejas Jeffries DO - 12/07/2022 1:08 PM CDT MICU Progress Note 12/07/2022 1:08 PM Patient: Mojgan Tabor (:1960) Room: [facility] [place] Admit Date: 11/24/2022. Hospital Day: 12 Reason for admission: Intra-operative VTach Hospital Course: Mojgan Tabor??with??62 M??PMH of??chronic resp failure with new hypoxia, stroke, dementia, trach and PEG tube, and seizures??was admitted to the ICU following an ENT procedure??complicated by??intraoperative ventricular tachycardia.??The surgery was aborted due to Vtach run.??The patient spontaneously converted to sinus rhythm in the OR after 2-3 minutes. His course has been complicated by sinus tachycardia to the 140's and uncontrolled hypertension, which has improved with IV esmolol.??Switched from esmolol to metoprolol tartrate per cards recc.??Course complicated by presumed ventilator-associated pneumonia, treated with??Cefepime that completed today 12/07/2022. Extubated on 12/06 and has rem ained on HHF/trach collar. Gastric emptying study to be completed with [facility] on 12/07/2022 to assess candidacy for GJ tube. Interval History: Overnight, patient's BP and HR remained controlled. NPO at midnight for gastric emptying study. No BM, bowel regimen on hold until after study completion. Objective: Vitals: 12/07/22 0732 12/07/22 0800 12/07/22 0900 12/07/22 1111 BP: 147/86 123/78 124/77 Pulse: 98 96 94 Resp: 18 21 19 Temp: 98.4 ??F (36.9 ??C) SpO2: 99% 94% 97% Weight: Height: @IODETAIL@ -1300 O2 %: 30 % Physical Exam General - NAD, afebrile, non cachectic HEENT - NC/AT, EOMI, clear conjunctivae, throat without erythema or exudate, moist mucous membranes Neck - Supple, no LAD, no JVD Chest - CTAB no crackles or wheezes bilaterally CV - RRR no murmurs, radial and DP pulses 2/4, good capillary refill Abdomen - Mildly firm, NT/ND, soft BS, no organomegaly Musculoskeletal - Moves all four extremities Extremities - No c/c/e Skin - No rashes, lesions or jaundice Neurologic - A&O unable to assess - nonverbal, follows verbal commands Psych - Appropriate mood and affect Labs: CBC: Recent Labs Component Name 12/07/2222712/06/2230912/05/22317 WBC 10.4 7.3 8.5 HGB 11.2* 11.1* 10.6* HCT 34.5* 34.7* 32.3* BMP: Recent Labs Component Name 12/07/2222712/06/2230912/05/22317 NA 137 139 137 CL 103 105 105 CO2 27 26 26 BUN 18 16 16 CREATININE 0.47* 0.38* 0.43* CALCIUM 10.6* 10.2 10.3* PHOS 3.0 2.8 2.7* Hepatic: Recent Labs Component Name 12/07/2222712/06/2230912/05/2231711/26/2230911/25/22 0335 11/04/22 0633 10/09/22 1204 ALT - - - - 24 27 10 AST - - - - 24 25 15 TBILI - - - - 0.2 0.2 0.1* PROT - - - - 6.9 7.7 6.9 ALB 2.4* 2.3* 2.2* - 2.6* 2.9* 3.0* ALKPHOS - - - - 85 124 83 - = values in this interval not displayed. Coagulation: Recent Labs Component Name 08/28/22222306/27/22221405/11/22 1309 PT 15.2* 12.8 13.5 INR 1.2 1.0 1.0 Cardiac Markers: Recent Labs Component Name 07/11/22 0040 07/01/22 1634 06/28/22 0141 06/27/22 22105/30/22 1750 03/08/22 1455 12/31/21 0412 CKTOTAL 49 42 - - - - 77 TROPONINI - - <0.010 <0.010 <0.010 - - - = values in this interval not displayed. ABGs: No results for input(s): PHART, PO2ART, QLG8DZW, BEART in the last 23142 hours. Micro: none Imaging: Imaging reviewed. Assessment: V-tach (CMS/HCC) (POA: No) History of CVA (cerebrovascular accident) (POA: Yes) Seizure disorder (CMS/HCC) (POA: Yes) Acute on chronic respiratory failure with hypoxia (CMS/HCC) (POA: Yes) Protein-calorie malnutrition, unspecified severity (CMS/HCC) (POA: Yes) Sinus tachycardia (POA: Unknown) Dementia, vascular (CMS/HCC) (POA: Yes) Nasal polyp (POA: Yes) Hemoptysis (POA: Yes) Acute blood loss anemia (POA: Yes) PEG (percutaneous endoscopic gastrostomy) status (CMS/HCC) (POA: Yes) Tracheostomy in place (CMS/HCC) (POA: Yes) Uncontrolled hypertension (POA: No) PLAN: ?? Neurological:?? #History of CVA c/b Left Sided Deficits #Dementia #Seizure Disorder - on SEAMAN atorvastatin 40mg, Depakote 500mg q6h, Clobazam 20mg BID, ??Lacosamide 200mg BID, Midazolam 5mg nasal spray PRN - SEAMAN ASA??were held due to??recent??bleeding, may resume if no epistaxis/nasal polyp bleeding ?? #Sedation -??Sedation no longer needed Cardiovascular:?? #Intraoperative Ventricular Tachycardia - noted during ENT procedure on 11/26 with spontaneous conversion to sinus after 2-3 minutes - cardiology consult recommended no acute intervention - troponin within normal limits -??continue telemetry -??initiate amiodarone bolus with gtt if Vtach reoccurs - maintain K>4, Mg>2, hgb >9 ?? #Sinus Tachycardia #Hypertension #Premature Ventricular Contractions - heart rate and blood pressure stable on metoprolol tartrate 25mg - patient has HTN at baseline; was not on any SEAMAN meds - CT PE negative, TSH wnl -??24h urine metanephrines WNL - cardiology consult: consider workup for pheochromocytoma, titrate BP with gtts and transition with oral antihypertensives ?? #QTc prolongation - baseline 455, prolonged to 526, most recent EKG 11/29 438 -??continue to monitor - avoid QT-prolonging medications ?? #PVD s/p L AKA - on SEAMAN atorvastatin 40mg - may resume ASA??if no bleeding ?? Pulmonary:?? #Acute on Chronic Hypoxic Respiratory Failure s/p tracheostomy #Antrochoanal Polyp c/b bleeding - tracheostomy placed Jun 2022 during admission for aspiration pneumonia -??In senior living facility, 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 - surgical removal of bleeding polyp aborted due to Vtach run - epistat in place to control bleeding; posterior balloon deflated - extubated on 12/06 -??SpO2 goal of 90% -??continue SEAMAN guaifenesin, levalbuterol -??hold SEAMAN scopolamine??patch -??f/u outpatient ENT ?? GI:?? #Dysphagia s/p PEG placement #Severe Protein Calorie Malnutrition - tube feeds via PEG for nutrition at home - STACK YIELD ENGINEER consulted - over the last 2 years they have seen the patient several times and failed swallowstudy - Gastric emptying study today 12/07 with Nuclear Med to assess candidacy for GJ tube placement by IR, resume feeds after study Renal:?? #BPH - on SEAMAN tamsulosin 0.4mg Endocrine: BGM goal 140-180 mg/dL ?? ID:?? #Concern for Ventilator-Associated Pneumonia - patient developed low-grade fever on 11/28/22 -??heavy pseudomonas growth and acinetobacter in sputum cx - ID rec treatment with cefepime, completed 12/07/2022 Heme/Onc:?? #Tracheal Bleeding - 2/2 antrochoanal polyp - Hgb??dropped 12.5->10.7, previously stable - HgB trending up, may resume aspirin and chemical DVT ppx while pt remains without bleeding -started Lovenox 40 DVT ppx - continue to trend CBC's daily - Keep tracheostomy cuff inflated to prevent aspiration of blood -??ENT managing??epistat; posterior balloon deflated, anterior balloon partially deflated - Afrin PRN -??ENT??to follow outpatient FEN: -Monitor??and replete??electrolytes QD K<4, Mg<2, Phos<3 ? Lines: Type:?Trach collar, Jensen, PEG tube, PIV? Prophylaxis: Aspiration precautions w/ HOB elevation by 30 degrees GI prophyalxis not needed (no indications) DVT prophyalxis w/ SCDs, Lovenox Diet:?? Tube feeds via PEG Activity:?? Bedrest Disposition: ICU Monitoring Code Status:?FULL Tejas Jeffries DO * Mely Rodriguez - 12/07/2022 9:43 AM CDT [employer] came for a follow up visit. Patient's eyes were open and RN had just finished checking on him. Patient can't speak but nodded yes when asked if he would appreciate a prayer. [employer] prayed,using the phrase God is good, all the time (all the time, God is good) as family had previously informed [employer] that patient loved those words. No other needs were expressed. [employer] assured patient of the ongoing availability of pastoral care if/when needed. 440/01 Mely Rodriguez 12/07/2022 9:44 AM #[id number] * Tejas Jeffries DO - 12/06/2022 7:15 PM CDT MICU Progress Note 12/06/2022 7:15 PM Patient: Mojgan Tabor (:1960) Room: 440/01 Admit Date: 11/24/2022. Hospital Day: 11 Reason for admission: Intra-operative v tachy Hospital Course: Mojgan Tabor??with??62 M??PMH of??chronic resp failure with new hypoxia, stroke, dementia, trach and PEG tube, and seizures??was admitted to the ICU following an ENT procedure??complicated by??intraoperative ventricular tachycardia.??The surgery was aborted due to Vtach run/.??The patient spontaneously converted to sinus rhythm in the OR after 2-3 minutes. His course has been complicated by sinus tachycardia to the 140's and uncontrolled hypertension, which has improved with IV esmolol.??Switchedfrom esmolol to metoprolol tartrate per cards recc.??Course complicated by presumed ventilator-associated pneumonia, currently treated with??Cefepime. Interval History: Overnight, extubated to HHF/trach collar. Cefepime until 0300 12/07/2022. Scheduled for gastric emptying study with [facility] tomorrow 12/07/2022 Objective: Vitals: 12/06/22 1500 12/06/22 1617 12/06/22 1700 12/06/22 1800 BP: 124/72 110/70 102/63 Pulse: 94 97 100 Resp: 18 11 11 Temp: 97.9 ??F (36.6 ??C) SpO2: 93% 95% 93% Weight: Height: @IODETAIL@ -1300 O2 %: 30 % Physical Exam General - NAD, afebrile, non cachectic HEENT - NC/AT, EOMI, clear conjunctivae, throat without erythema or exudate, moist mucous membranes Neck - Supple, no LAD, no JVD Chest - CTAB no crackles or wheezes bilaterally CV - RRR no murmurs, radial and DP pulses 2/4, good capillary refill Abdomen - Soft, NT/ND, +BS, no organomegaly Musculoskeletal - Moves all four extremities Extremities - No c/c/e Skin - No rashes, lesions or jaundice Neurologic - A&O unable to assess - nonverbal, follows verbal commands Psych - Appropriate mood and affect Labs: CBC: Recent Labs Component Name 12/06/2230912/05/2231712/04/22326 WBC 7.3 8.5 8.6 HGB 11.1* 10.6* 10.0* HCT 34.7* 32.3* 31.2* BMP: Recent Labs Component Name 12/06/2230912/05/2231712/04/22326 NA 139 137 141 CL 105 105 108* CO2 26 26 27 BUN 16 16 18 CREATININE 0.38* 0.43* 0.52* CALCIUM 10.2 10.3* 10.2 PHOS 2.8 2.7* 2.8 Hepatic: Recent Labs Component Name 12/06/22 0310 12/05/22 0318 12/04/22 0327 11/26/22 0310 11/25/22 0335 11/04/22 0633 10/09/22 1204 ALT - - - - 24 27 10 AST - - - - 24 25 15 TBILI - - - - 0.2 0.2 0.1* PROT - - - - 6.9 7.7 6.9 ALB 2.3* 2.2* 2.2* - 2.6* 2.9* 3.0* ALKPHOS - - - - 85 124 83 - = values in this interval not displayed. Coagulation: Recent Labs Component Name 08/28/22 2224 06/27/22 2215 05/11/22 1309 PT 15.2* 12.8 13.5 INR 1.2 1.0 1.0 Cardiac Markers: Recent Labs Component Name 07/11/22 0040 07/01/22 1634 06/28/22 0141 06/27/22 2215 05/30/22 1750 03/08/22 1455 12/31/21 0412 CKTOTAL 49 42 - - - - 77 TROPONINI - - <0.010 <0.010 <0.010 - - - = values in this interval not displayed. ABGs: No results for input(s): PHART, PO2ART, YAC4ACN, BEART in the last 93130 hours. Micro: none Imaging: Imaging reviewed. Assessment: V-tach (CMS/HCC) (POA: No) History of CVA (cerebrovascular accident) (POA: Yes) Seizure disorder (CMS/HCC) (POA: Yes) Acute on chronic respiratory failure with hypoxia (CMS/HCC) (POA: Yes) Protein-calorie malnutrition, unspecified severity (CMS/HCC) (POA: Yes) Sinus tachycardia (POA: Unknown) Dementia, vascular (CMS/HCC) (POA: Yes) Nasal polyp (POA: Yes) Hemoptysis (POA: Yes) Acute blood loss anemia (POA: Yes) PEG (percutaneous endoscopic gastrostomy) status (CMS/HCC) (POA: Yes) Tracheostomy in place ([facility]) (POA: Yes) Uncontrolled hypertension (POA: No) PLAN: ?? Neurological:?? #History of CVA c/b Left Sided Deficits #Dementia #Seizure Disorder - on SEAMAN atorvastatin 40mg, Depakote 500mg q6h, Clobazam 20mg BID, ??Lacosamide 200mg BID, Midazolam 5mg nasal spray PRN -??holding SEAMAN ASA??due to??recent??bleeding ?? #Sedation -??Sedation no longer needed - Scheduled clobozam BID Cardiovascular:?? #Intraoperative Ventricular Tachycardia - noted during ENT procedure on 11/26 with spontaneous conversion to sinus after 2-3 minutes - cardiology consult recommended no acute intervention - troponin within normal limits >??continue telemetry >??initiate amiodarone bolus with gtt if Vtach reoccurs > maintain K>4, Mg>2, hgb >9 ?? #Sinus Tachycardia #Hypertension #Premature Ventricular Contractions - heart rate and blood pressure stable on metoprolol tartrate 25mg - patient has HTN at baseline; was not on any SEAMAN meds - CT PE negative, TSH wnl -??24h urine metanephrines WNL - cardiology consult: consider workup for pheochromocytoma, titrate BP with gtts and transition with oral antihypertensives ?? #QTc prolongation - baseline 455 - prolonged to 526 on most recent EKG >??continue to monitor > avoid QT-prolonging medications ?? #PVD s/p L AKA - on SEAMAN atorvastatin 40mg - holding SEAMAN ASA??due to bleeding ?? Pulmonary:?? #Acute on Chronic Hypoxic Respiratory Failure s/p tracheostomy #Antrochoanal Polyp c/b bleeding - tracheostomy placed Jun 2022 during admission for aspiration pneumonia -??In senior living facility, 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 - surgical removal of bleeding polyp aborted due to Vtach run - epistat in place to control bleeding; posterior balloon deflated this AM - intubated with mechanical ventilation - CXR: tracheostomy tube stable in position -??SpO2 goal of 90% >??continue SEAMAN guaifenesin, levalbuterol >??hold SEAMAN scopolamine??patch >??f/u outpatient ENT ?? GI:?? #Dysphagia s/p PEG placement #Severe Protein Calorie Malnutrition - tube feeds via PEG for nutrition at home - STACK YIELD ENGINEER consulted - over the last 2 years they have seen the patient several times and failed swallowstudy - Gastric emptying study tomorrow AM with Nuclear Med to assess candidacy for GJ tube placement by IR , NPO at midnight Renal:?? #BPH - on SEAMAN tamsulosin 0.4mg Endocrine: BGM goal 140-180 mg/dL ?? ID:?? #Concern for Ventilator-Associated Pneumonia - patient developed low-grade fever on 11/28/22 -??heavy pseudomonas growth and acinetobacter in sputum cx - ID rec treatment wih cefepime only until 12/07/2022 Heme/Onc:?? #Tracheal Bleeding - 2/2 antrochoanal polyp - Hgb??dropped 12.5->10.7, previously stable > continue holding aspirin and chemical DVT ppx pending afternoon CBC > continue to trend CBC's daily > Keep tracheostomy cuff inflated to prevent aspiration of blood >??ENT managing??epistat; posterior balloon deflated, anterior balloon partially deflated > Afrin PRN >??ENT??to follow outpatient FEN: -Monitor??and replete??electrolytes QD K<4, Mg<2, Phos<3 ? Lines: Type:?ETT, Jensen, PEG tube, PIV? Prophylaxis: Aspiration precautions w/ HOB elevation by 30 degrees GI prophyalxis w/ famotidine DVT prophyalxis w/ SCDs??only due to recent bleed?? Diet:?? Tube feeds via PEG Activity:?? Bedrest Disposition: ICU Monitoring Code Status:?FULL Tejas Jeffries, Associated attestation - Stephen Witt MD - 12/06/2022 9:45 PM CDT 12/06/2022 Attending Physician Supervisory Note I personally saw, evaluated and examined the patient and agree with the assessment and plan of the housestaff doctor except noted in my notes. Stephen Witt MD * Sharla Esquivel RN - 12/06/2022 7:03 PM CDT Problem: Fall Risk Goal: Fall risk and fall related injury risk are minimized (interventions related to the fall risk can be found in the flowsheet documentation) Outcome: Progressing Problem: Skin Integrity Goal: Skin integrity is maintained or improved Outcome: Progressing Problem: Pain/Discomfort Goal: Patient exhibits reduced pain/discomfort as evidenced by pain scores Outcome: Progressing Problem: Mechanical Ventilation Goal: Patent airway Outcome: Progressing Goal: Tracheostomy will be managed safely Outcome: Progressing * Felicity Lofton RN - 12/06/2022 4:04 PM CDT Care Coordination Progress Note Anticipated level of care at discharge: [facility] - Medicaid Discharge Plan: Discharge needs pending response to clinical treatment and therapies recommendations. Anticipate pt will return to prior level of assist MICU admit :ventilator-associated pneumonia, currently treated with??Cefepime. READMISSION RISK SCORE is 27 at 4:05 PM 12/06/2022. Anticipated Discharge Date: 12/03/22 Patient/Family provided with list of resources? Yes Preferred Provider / High Quality Network List given?: Unknown Reason for provider choice: Pt. choice - previous provider Family Support (Name and Phone): Extended Emergency Contact Information Primary Emergency Contact: Adriane Hilliard Mobile Relation: Sister Farm Operator needed? No Secondary Emergency Contact: [facility] Relation: Brother Patient is alert & orientated or has capacity for decision making: No If No , Legal or Designated Decision Maker: Sister (Name: Adriane Hilliard, Transportation at Discharge: Ambulance Equipment at Home: Equipment at Home: Facility Equipment List DME patient requires but does not have: DME Provider: Medication affordability concerns: No Follow Up Appointment: Transportation to MD: Ambulance Auth Number (if required): [place]: DME: Medications: Transportation: Name: Felicity Lofton RN Phone: [phone] * Tamie Dhaliwal RN - 12/05/2022 9:00 PM CDT Problem: Fall Risk Goal: Fall [...] engage in desired activity. Outcome: Progressing Problem: Safety related to restraint use Goal: Absence of injury while restrained Outcome: Progressing Problem: Mechanical Ventilation Goal: Patent airway Outcome: Progressing Goal: Tracheostomy will be managed safely Outcome: Progressing * Nadir Machado RCP - 12/05/2022 7:33 PM CDT 12/05/221931 Oxygen Therapy SpO2 98 % SP02 Frequency Continuous O2 % (FiO2) (S) 40 % O2 L/M (S) 30 Activity In Bed;Resting with Eyes Closed $ O2 DEVICE (S) Heated;Humidified;Trach Adaptor - High Flow $ (PT HAS THICK SECRETIONS. PLACED ON HEATED HUMIDIFIED COLLAR.) Humidity Source Active Humidity Humidity Temp (C) 37 Celsius H2O Bag Full Humidifier alarm on and functional Yes Mask/Prong/Headgear Care Mask/Prongs Type HFTA * Sharla Esquivel RN - 12/05/2022 6:48 PM CDT Problem: Fall Risk Goal: Fall risk and fall related injury risk are minimized (interventions related to the fall risk can be found in the flowsheet documentation) Outcome: Progressing Problem: Skin Integrity Goal: Skin integrity is maintained or improved Outcome: Progressing Problem: Pain/Discomfort Goal: Patient exhibits reduced pain/discomfort as evidenced by pain scores Outcome: Progressing Problem: Safety related to restraint use Goal: Absence of injury while restrained Outcome: Progressing Problem: Mechanical Ventilation Goal: Patent airway Outcome: Progressing Goal: Tracheostomy will be managed safely Outcome: Progressing * Leonie Turner MD - 12/05/2022 6:12 AM CDT MICU Progress Note 12/05/2022 6:13 AM Patient: Mojgan Tabor (:1960) Room: [facility] Admit Date: 11/24/2022. Hospital Day: 10 Reason for admission: Intra-operative v tachy Hospital Course: Mojgan Tabor??with??62 M??PMH of??chronic resp failure with new hypoxia, stroke, dementia, trach and PEG tube, and seizures??was admitted to the ICU following an ENT procedure??complicated by??intraoperative ventricular tachycardia.??The surgery was aborted due to Vtach run/.??The patient spontaneously converted to sinus rhythm in the OR after 2-3 minutes. His course has been complicated by sinus tachycardia to the 140's and uncontrolled hypertension, which has improved with IV esmolol.??Switchedfrom esmolol to metoprolol tartrate per cards recc.??Course complicated by presumed ventilator-associated pneumonia, currently treated with??Cefepime. Interval History: NAEON. Cefepime until 12/06/2022. Objective: Vitals: 12/05/22 0339 12/05/22 0341 12/05/22 0400 12/05/22 0517 BP: 138/85 Pulse: 87 88 82 88 Resp: 24 24 20 Temp: SpO2: 96% 94% 96% 97% Weight: Height: @IODETAIL@ -1300 PEEP/CPAP: 5 cm H20 Pressure Support: 10 cm H2O Mean Airway Pressure (cm H2O): 9 cm H2O O2 %: 25 % Physical Exam General - NAD, afebrile, non cachectic HEENT - NC/AT, EOMI, clear conjunctivae, throat without erythema or exudate, moist mucous membranes Neck - Supple, no LAD, no JVD Chest - CTAB no crackles or wheezes bilaterally CV - RRR no murmurs, radial and DP pulses 2/4, good capillary refill Abdomen - Soft, NT/ND, +BS, no organomegaly Musculoskeletal - Moves all four extremities Extremities - No c/c/e Skin - No rashes, lesions or jaundice Neurologic - A&O x 3, no focal neurological deficits Psych - Appropriate mood and affect Labs: CBC: Recent Labs Component Name 12/05/2231712/04/2232612/03/22228 WBC 8.5 8.6 9.4 HGB 10.6* 10.0* 9.3* HCT 32.3* 31.2* 28.3* BMP: Recent Labs Component Name 12/05/2231712/04/2232612/03/22228 NA 137 141 143 CL 105 108* 111* CO2 26 27 22 BUN 16 18 18 CREATININE 0.43* 0.52* 0.50* CALCIUM 10.3* 10.2 9.5 PHOS 2.7* 2.8 2.6* Hepatic: Recent Labs Component Name 12/05/2231712/04/2232612/03/2222811/26/2230911/25/22 0335 11/04/22 0633 10/09/22 1204 ALT - - - - 24 27 10 AST - - - - 24 25 15 TBILI - - - - 0.2 0.2 0.1* PROT - - - - 6.9 7.7 6.9 ALB 2.2* 2.2* 2.1* - 2.6* 2.9* 3.0* ALKPHOS - - - - 85 124 83 - = values in this interval not displayed. Coagulation: Recent Labs Component Name 08/28/22 22206/27/22221405/11/22 1309 PT 15.2* 12.8 13.5 INR 1.2 1.0 1.0 Cardiac Markers: Recent Labs Component Name 07/11/22 0040 07/01/22 1634 06/28/22 0141 06/27/22 2215 05/30/22 1750 03/08/22 1455 12/31/21 0412 CKTOTAL 49 42 - - - - 77 TROPONINI - - <0.010 <0.010 <0.010 - - - = values in this interval not displayed. ABGs: No results for input(s): PHART, PO2ART, CRL5YPF, BEART in the last 28914 hours. Micro: none Imaging: Imaging reviewed. Assessment: V-tach (CMS/HCC) (POA: No) History of CVA (cerebrovascular accident) (POA: Yes) Seizure disorder (CMS/HCC) (POA: Yes) Acute on chronic respiratory failure with hypoxia (CMS/HCC) (POA: Yes) Protein-calorie malnutrition, unspecified severity (CMS/HCC) (POA: Yes) Sinus tachycardia (POA: Unknown) Dementia, vascular (CMS/HCC) (POA: Yes) Nasal polyp (POA: Yes) Hemoptysis (POA: Yes) Acute blood loss anemia (POA: Yes) PEG (percutaneous endoscopic gastrostomy) status (CMS/HCC) (POA: Yes) Tracheostomy in place (CMS/HCC) (POA: Yes) Uncontrolled hypertension (POA: No) PLAN: ?? Neurological:?? #History of CVA c/b Left Sided Deficits #Dementia #Seizure Disorder - on SEAMAN atorvastatin 40mg, Depakote 500mg q6h, Clobazam 20mg BID, ??Lacosamide 200mg BID, Midazolam 5mg nasal spray PRN -??holding SEAMAN ASA??due to??recent??bleeding ?? #Sedation -??propofol discontinued on 11/27??due to QTc prolongation > D/c precedex - Scheduled clobozam BID Cardiovascular:?? #Intraoperative Ventricular Tachycardia - noted during ENT procedure on 11/26 with spontaneous conversion to sinus after 2-3 minutes - cardiology consult recommended no acute intervention - troponin within normal limits >??continue telemetry >??initiate amiodarone bolus with gtt if Vtach reoccurs > maintain K>4, Mg>2, hgb >9 ?? #Sinus Tachycardia #Hypertension #Premature Ventricular Contractions - heart rate and blood pressure consistently elevated overnight into this morning - patient has HTN at baseline; was not on any SEAMAN meds - IV nicardipine and fluid bolus administered without improvement in symptoms - CT PE negative, TSH wnl -??24h urine metanephrines WNL - cardiology consult: consider workup for pheochromocytoma, titrate BP with gtts and transition with oral antihypertensives - tachycardia and HTN improved with IV esmolol ?? #QTc prolongation - baseline 455 - prolonged to 526 on most recent EKG -??patient's sedative switched from propofol to fentanyl??on 11/26 >??continue to monitor > avoid QT-prolonging medications ?? #PVD s/p L AKA - on SEAMAN atorvastatin 40mg - holding SEAMAN ASA??due to bleeding ?? Pulmonary:?? #Acute on Chronic Hypoxic Respiratory Failure s/p tracheostomy #Antrochoanal Polyp c/b bleeding - tracheostomy placed Jun 2022 during admission for aspiration pneumonia -??In senior living facility, 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 - surgical removal of bleeding polyp aborted due to Vtach run - epistat in place to control bleeding; posterior balloon deflated this AM - intubated with mechanical ventilation - CXR: tracheostomy tube stable in position -??SpO2 goal of 90% >??continue SEAMAN guaifenesin, levalbuterol >??hold SEAMAN scopolamine??patch >??Continue??to wean from ventilator >??f/u outpatient ENT ?? GI:?? #Dysphagia s/p PEG placement #Severe Protein Calorie Malnutrition - tube feeds via PEG for nutrition at home - [employer] consulted - over the last 2 years they have seen the patient several times and failed swallowstudy. Especially with being on ventilator, they are unable to perform another swallow study. >??ACS??does not recommend placing??J tube.??Recommended gastric emptying study to assess candidacy for GJ tube placement by IR >??continue??diet NPO > F/u gastric study Renal:?? #BPH - on SEAMAN tamsulosin 0.4mg Endocrine: BGM goal 140-180 mg/dL ?? ID:?? #Concern for Ventilator-Associated Pneumonia - patient developed low-grade fever on 11/28/22 -??heavy pseudomonas growth and acinetobacter in sputum cx - ID rec treatment wih cefepime only until 12/06/2022 Heme/Onc:?? #Tracheal Bleeding - 2/2 antrochoanal polyp - Hgb??dropped 12.5->10.7, previously stable > continue holding aspirin and chemical DVT ppx pending afternoon CBC > continue to trend CBC's daily > Keep tracheostomy cuff inflated to prevent aspiration of blood >??ENT managing??epistat; posterior balloon deflated, anterior balloon partially deflated > Afrin PRN >??ENT??to follow outpatient FEN: -Monitor??and replete??electrolytes QD K<4, Mg<2, Phos<3 ? Lines: Type:?ETT, Jensen, PEG tube, PIV? Prophylaxis: Aspiration precautions w/ HOB elevation by 30 degrees GI prophyalxis w/ famotidine DVT prophyalxis w/ SCDs??only due to recent bleed?? Diet:?? Tube feeds via PEG Activity:?? Bedrest Disposition: ICU Monitoring Code Status:?FULL Leonie Turner MD Associated attestation - Ilir Mckenzie MD - 12/05/2022 9:24 PM CDT I spent 32 minutes in full attendance with this critically-ill patient. Time spent was exclusive ofseparately billed procedures, treating other patients, and teaching time. I have reviewed and agreewith resident documentation. Critical care was necessary to treat or prevent life-threatening deterioration of the following: V-tach (CMS/HCC) (POA: No) History of CVA (cerebrovascular accident) (POA: Yes) Seizure disorder (CMS/HCC) (POA: Yes) Acute on chronic respiratory failure with hypoxia (CMS/HCC) (POA: Yes) Protein-calorie malnutrition, unspecified severity (CMS/HCC) (POA: Yes) Sinus tachycardia (POA: Unknown) Dementia, vascular (CMS/HCC) (POA: Yes) Nasal polyp (POA: Yes) Hemoptysis (POA: Yes) Acute blood loss anemia (POA: Yes) PEG (percutaneous endoscopic gastrostomy) status (CMS/HCC) (POA: Yes) Tracheostomy in place (CMS/HCC) (POA: Yes) Uncontrolled hypertension (POA: No) Patient Active Problem List Diagnosis Date Noted COVID-19 04/14/2021 Priority: High History of CVA (cerebrovascular accident) 12/11/2020 Priority: High Cognitive communication deficit 08/25/2020 Priority: High Dysphagia, oropharyngeal phase 08/25/2020 Priority: High Epilepsy, unspecified, not intractable, without status epilepticus ([facility]) 05/25/2019 Priority: High Hemiplegia and 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- dominant side ([facility]) 05/25/2019 Priority: High Alzheimer's disease with early onset ([facility]) 05/17/2019 Priority: High Paroxysmal tachycardia, unspecified ([facility]) 05/16/2019 Priority: High Alcohol abuse, uncomplicated 08/13/2015 Priority: High Benign neoplasm of prostate 06/26/2015 Priority: High Other specified rheumatoid arthritis, unspecified site ([facility]) 06/26/2015 Priority: High Uncontrolled hypertension 11/28/2022 Priority: Not Prioritized Uncontrolled. V-tach ([facility]) 11/27/2022 Priority: Not Prioritized Nasal polyp 11/25/2022 Priority: Not Prioritized Hemoptysis 11/25/2022 Priority: Not Prioritized Acute blood loss anemia 11/25/2022 Priority: Not Prioritized PEG (percutaneous endoscopic gastrostomy) status ([facility]) 11/25/2022 Priority: Not Prioritized Tracheostomy in place ([facility]) 11/25/2022 Priority: Not Prioritized Pressure ulcer of right heel, stage 3 ([facility]) 10/17/2022 Priority: Not Prioritized Dementia, vascular ([facility]) 10/17/2022 Priority: Not Prioritized Atelectasis, right 07/05/2022 Priority: Not Prioritized Contrast-induced nephropathy 07/05/2022 Priority: Not Prioritized 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 Priority: Not Prioritized Leukocytosis, unspecified type 06/28/2022 Priority: Not Prioritized Sinus tachycardia 06/28/2022 Priority: Not Prioritized Hypoxia 06/28/2022 Priority: Not Prioritized Acute respiratory failure with hypoxia ([facility]) 06/28/2022 Priority: Not Prioritized Aspiration pneumonitis ([facility]) 06/13/2022 Priority: Not Prioritized Aspiration into airway 06/12/2022 Priority: Not Prioritized Protein-calorie malnutrition, unspecified severity ([facility]) 06/03/2022 Priority: Not Prioritized Abdominal pain, generalized 05/30/2022 Priority: Not Prioritized Lethargy 05/30/2022 Priority: Not Prioritized History of stroke 05/30/2022 Priority: Not Prioritized Acute on chronic respiratory failure with hypoxia ([facility]) 05/30/2022 Priority: Not Prioritized Bacteremia 03/11/2022 Priority: Not Prioritized Ulcer of left foot ([facility]) 03/11/2022 Priority: Not Prioritized PAD (peripheral artery disease) ([facility]) 03/11/2022 Priority: Not Prioritized Severe protein-calorie malnutrition ([facility]) 03/11/2022 Priority: Not Prioritized Status epilepticus ([facility]) 12/30/2021 Priority: Not Prioritized Seizure disorder ([facility]) 12/30/2021 Priority: Not Prioritized Seizures ([facility]) 08/13/2020 Priority: Not Prioritized Therapeutic procedure Priority: Not Prioritized Cerebrovascular accident ([facility]) 06/13/2019 Priority: Not Prioritized Insomnia 06/13/2019 Priority: Not Prioritized Low back pain 06/13/2019 Priority: Not Prioritized Osteoporosis 11/22/2018 Priority: Not Prioritized Essential (primary) hypertension 07/24/2015 Priority: Not Prioritized Hyperlipidemia 04/14/2015 Priority: Not Prioritized Last Assessment & Plan: Continue home meds and monitor 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 Priority: Not Prioritized The plan of care consists of: Continue vent support Trach collar trial for one hour. On cefepime for pseudomonas pneumonia ID help appreciated. Awaiting gastric emptying study * Tamie Dhaliwal RN - 12/04/2022 9:07 PM CDT Problem: Fall Risk Goal: Fall risk and fall related injury risk are minimized (interventions related to the fall risk can be found in the flowsheet documentation) Outcome: Progressing Problem: Skin Integrity Goal: Skin integrity is maintained or improved Outcome: Progressing Problem: Nutrient: Malnutrition Goal: Enteral/parenteral nutrition prescription will be consistent with estimated needs Outcome: Progressing Problem: Pain/Discomfort Goal: Patient exhibits reduced pain/discomfort as evidenced by pain scores Outcome: Progressing Goal: Patient uses pharmacological and non-pharmacological pain management strategies. Outcome: Progressing Goal: Patient verbalizes acceptable level of pain relief and ability to engage in desired activity. Outcome: Progressing Problem: Safety related to restraint use Goal: Absence of injury while restrained Outcome: Progressing Problem: Mechanical Ventilation Goal: Patent airway Outcome: Progressing Goal: Tracheostomy will be managed safely Outcome: Progressing * Delilah Granado RN - 12/04/2022 6:49 PM CDT Problem: Skin Integrity Goal: Skin integrity is maintained or improved Outcome: Progressing Problem: Nutrient: Malnutrition Goal: Enteral/parenteral nutrition prescription will be consistent with estimated needs Outcome: Progressing Problem: Safety related to restraint use Goal: Absence of injury while restrained Outcome: Progressing * Leonie Turner MD - 12/04/2022 8:18 AM CDT MICU Progress Note 12/04/2022 8:18 AM Patient: Mojgan Tabor (:1960) Room: [facility] Admit Date: 11/24/2022. Hospital Day: 9 Reason for admission: Intra-operative v tachy Hospital Course: Mojgan Tabor??with??62 M??PMH of??chronic resp failure with new hypoxia, stroke, dementia, trach and PEG tube, and seizures??was admitted to the ICU following an ENT procedure??complicated by??intraoperative ventricular tachycardia.??The surgery was aborted due to Vtach run/.??The patient spontaneously converted to sinus rhythm in the OR after 2-3 minutes. His course has been complicated by sinus tachycardia to the 140's and uncontrolled hypertension, which has improved with IV esmolol.??Switchedfrom esmolol to metoprolol tartrate per cards recc.??Course complicated by presumed ventilator-associated pneumonia, currently treated with??Cefepime. Interval History: Nothing ON, vent 01/01 spont 250 tidal 24 RR D/c pepcid, senna, miralax for gastric study. ID signed off: cefepime until 12/06 Objective: Vitals: 12/04/22 0503 12/04/22 0600 12/04/22 0700 12/04/22 0749 BP: 148/85 122/70 133/73 Pulse: 87 102 96 Resp: 26 26 22 27 Temp: SpO2: 96% 95% 97% 99% Weight: Height: @IODETAIL@ Net -506 PEEP/CPAP: 5 cm H20 Pressure Support: 8 cm H2O Mean Airway Pressure (cm H2O): 8.9 cm H2O O2 %: 25 % Physical Exam General - NAD, asleep, afebrile, non cachectic HEENT - NC/AT, EOMI, clear conjunctivae Neck - Supple, no LAD, no JVD Chest - CTAB no crackles or wheezes bilaterally CV - RRR no murmurs, radial and DP pulses 2/4, good capillary refill Abdomen - Soft, NT/ND, +BS, no organomegaly Musculoskeletal - Moves arms. Amputated L leg Extremities - No c/c/e Skin - No rashes, lesions or jaundice Neurologic - unable to asses Psych - unable to assess Labs: CBC: Recent Labs Component Name 12/04/2232612/03/2222812/02/22 0356 WBC 8.6 9.4 13.6* HGB 10.0* 9.3* 9.6* HCT 31.2* 28.3* 29.2* BMP: Recent Labs Component Name 12/04/2232612/03/2222812/02/22 035 NA 141 143 140 CL 108* 111* 109* CO2 27 22 25 BUN 18 18 14 CREATININE 0.52* 0.50* 0.55* CALCIUM 10.2 9.5 9.9 PHOS 2.8 2.6* 3.0 Hepatic: Recent Labs Component Name 12/04/2232612/03/2222812/02/22 0356 11/26/22 0310 11/25/22 0335 11/04/22 0633 10/09/22 1204 ALT - - - - 24 27 10 AST - - - - 24 25 15 TBILI - - - - 0.2 0.2 0.1* PROT - - - - 6.9 7.7 6.9 ALB 2.2* 2.1* 2.2* - 2.6* 2.9* 3.0* ALKPHOS - - - - 85 124 83 - = values in this interval not displayed. Coagulation: Recent Labs Component Name 08/28/22222306/27/22 2215 05/11/22 1309 PT 15.2* 12.8 13.5 INR 1.2 1.0 1.0 Cardiac Markers: Recent Labs Component Name 07/11/22 0040 07/01/22 1634 06/28/22 0141 06/27/22 2215 05/30/22 1750 03/08/22 1455 12/31/21 0412 CKTOTAL 49 42 - - - - 77 TROPONINI - - <0.010 <0.010 <0.010 - - - = values in this interval not displayed. ABGs: No results for input(s): PHART, PO2ART, [id number], BEART in the last 09626 hours. Micro: none Imaging: none Assessment: V-tach (CMS/HCC) (POA: No) History of CVA (cerebrovascular accident) (POA: Yes) Seizure disorder (CMS/HCC) (POA: Yes) Acute on chronic respiratory failure with hypoxia (CMS/HCC) (POA: Yes) Protein-calorie malnutrition, unspecified severity (CMS/HCC) (POA: Yes) Sinus tachycardia (POA: Unknown) Dementia, vascular (CMS/HCC) (POA: Yes) Nasal polyp (POA: Yes) Hemoptysis (POA: Yes) Acute blood loss anemia (POA: Yes) PEG (percutaneous endoscopic gastrostomy) status (CMS/HCC) (POA: Yes) Tracheostomy in place (CMS/HCC) (POA: Yes) Uncontrolled hypertension (POA: No) PLAN: ?? Neurological:?? #History of CVA c/b Left Sided Deficits #Dementia #Seizure Disorder - on SEAMAN atorvastatin 40mg, Depakote 500mg q6h, Clobazam 20mg BID, ??Lacosamide 200mg BID, Midazolam 5mg nasal spray PRN -??holding SEAMAN ASA??due to??recent??bleeding ?? #Sedation -??propofol discontinued on 11/27??due to QTc prolongation > D/c precedex - Scheduled clobozam BID Cardiovascular:?? #Intraoperative Ventricular Tachycardia - noted during ENT procedure on 11/26 with spontaneous conversion to sinus after 2-3 minutes - cardiology consult recommended no acute intervention - troponin within normal limits >??continue telemetry >??initiate amiodarone bolus with gtt if Vtach reoccurs > maintain K>4, Mg>2, hgb >9 ?? #Sinus Tachycardia #Hypertension #Premature Ventricular Contractions - heart rate and blood pressure consistently elevated overnight into this morning - patient has HTN at baseline; was not on any SEAMAN meds - IV nicardipine and fluid bolus administered without improvement in symptoms - CT PE negative, TSH wnl - 24h urine metanephrines WNL - cardiology consult: consider workup for pheochromocytoma, titrate BP with gtts and transition with oral antihypertensives - tachycardia and HTN improved with IV esmolol > continue prn tylenol ?? #QTc prolongation - baseline 455 - prolonged to 526 on most recent EKG -??patient's sedative switched from propofol to fentanyl??on 11/26 >??continue to monitor > avoid QT-prolonging medications ?? #PVD s/p L AKA - on SEAMAN atorvastatin 40mg - holding SEAMAN ASA??due to bleeding ?? Pulmonary:?? #Acute on Chronic Hypoxic Respiratory Failure s/p tracheostomy #Antrochoanal Polyp c/b bleeding - tracheostomy placed Jun 2022 during admission for aspiration pneumonia -??In senior living facility, 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 - surgical removal of bleeding polyp aborted due to Vtach run - epistat in place to control bleeding; posterior balloon deflated this AM - intubated with mechanical ventilation - CXR: tracheostomy tube stable in position -??SpO2 goal of 90% >??continue SEAMAN guaifenesin, levalbuterol >??hold SEAMAN scopolamine??patch > Continue to wean from ventilator > f/u outpatient ENT ?? GI:?? #Dysphagia s/p PEG placement #Severe Protein Calorie Malnutrition - tube feeds via PEG for nutrition at home - [employer]INE[employer] consulted - over the last 2 years they have seen the patient several times and failed swallowstudy. Especially with being on ventilator, they are unable to perform another swallow study. >??ACS??does not recommend placing??J tube. Recommended gastric emptying study to assess candidacy for GJ tube placement by IR >??continue??diet NPO > F/u gastric study, d/c motility agents Renal:?? #BPH - on SEAMAN tamsulosin 0.4mg Endocrine: BGM goal 140-180 mg/dL ?? ID:?? #Concern for Ventilator-Associated Pneumonia - patient developed low-grade fever on 11/28/22 -??heavy pseudomonas growth and acinetobacter in sputum cx - ID rec treatment wih cefepime only until 12/06/2022 Heme/Onc:?? #Tracheal Bleeding - 2/2 antrochoanal polyp - Hgb??dropped 12.5->10.7, previously stable > continue holding aspirin and chemical DVT ppx pending afternoon CBC > continue to trend CBC's daily > Keep tracheostomy cuff inflated to prevent aspiration of blood >??ENT managing??epistat; posterior balloon deflated, anterior balloon partially deflated > Afrin PRN >??ENT??to follow outpatient FEN: -Monitor??and replete??electrolytes QD K<4, Mg<2, Phos<3 ? Lines: Type:?ETT, Jensen, PEG tube, PIV? Prophylaxis: Aspiration precautions w/ HOB elevation by 30 degrees GI prophyalxis w/ famotidine DVT prophyalxis w/ SCDs??only due to recent bleed?? Diet:?? Tube feeds via PEG Activity:?? Bedrest Disposition: ICU Monitoring Code Status:?FULL Leonie Turner MD Associated attestation - Ilir Mckenzie MD - 12/04/2022 5:27 PM CDT I spent 32 minutes in full attendance with this critically-ill patient. Time spent was exclusive ofseparately billed procedures, treating other patients, and teaching time. I have reviewed and agreewith resident documentation. Critical care was necessary to treat or prevent life-threatening deterioration of the following: V-tach (CMS/HCC) (POA: No) History of CVA (cerebrovascular accident) (POA: Yes) Seizure disorder (CMS/HCC) (POA: Yes) Acute on chronic respiratory failure with hypoxia (CMS/HCC) (POA: Yes) Protein-calorie malnutrition, unspecified severity (CMS/HCC) (POA: Yes) Sinus tachycardia (POA: Unknown) Dementia, vascular (CMS/HCC) (POA: Yes) Nasal polyp (POA: Yes) Hemoptysis (POA: Yes) Acute blood loss anemia (POA: Yes) PEG (percutaneous endoscopic gastrostomy) status ([facility]) (POA: Yes) Tracheostomy in place ([facility]) (POA: Yes) Uncontrolled hypertension (POA: No) Patient Active Problem List Diagnosis Date Noted COVID-19 04/14/2021 Priority: High History of CVA (cerebrovascular accident) 12/11/2020 Priority: High Cognitive communication deficit 08/25/2020 Priority: High Dysphagia, oropharyngeal phase 08/25/2020 Priority: High Epilepsy, unspecified, not intractable, without status epilepticus ([facility]) 05/25/2019 Priority: High Hemiplegia and 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- dominant side ([facility]) 05/25/2019 Priority: High Alzheimer's disease with early onset ([facility]) 05/17/2019 Priority: High Paroxysmal tachycardia, unspecified ([facility]) 05/16/2019 Priority: High Alcohol abuse, uncomplicated 08/13/2015 Priority: High Benign neoplasm of prostate 06/26/2015 Priority: High Other specified rheumatoid arthritis, unspecified site ([facility]) 06/26/2015 Priority: High Uncontrolled hypertension 11/28/2022 Priority: Not Prioritized Uncontrolled. V-tach ([facility]) 11/27/2022 Priority: Not Prioritized Nasal polyp 11/25/2022 Priority: Not Prioritized Hemoptysis 11/25/2022 Priority: Not Prioritized Acute blood loss anemia 11/25/2022 Priority: Not Prioritized PEG (percutaneous endoscopic gastrostomy) status ([facility]) 11/25/2022 Priority: Not Prioritized Tracheostomy in place ([facility]) 11/25/2022 Priority: Not Prioritized Pressure ulcer of right heel, stage 3 ([facility]) 10/17/2022 Priority: Not Prioritized Dementia, vascular ([facility]) 10/17/2022 Priority: Not Prioritized Atelectasis, right 07/05/2022 Priority: Not Prioritized Contrast-induced nephropathy 07/05/2022 Priority: Not Prioritized 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 Priority: Not Prioritized Leukocytosis, unspecified type 06/28/2022 Priority: Not Prioritized Sinus tachycardia 06/28/2022 Priority: Not Prioritized Hypoxia 06/28/2022 Priority: Not Prioritized Acute respiratory failure with hypoxia ([facility]) 06/28/2022 Priority: Not Prioritized Aspiration pneumonitis ([facility]) 06/13/2022 Priority: Not Prioritized Aspiration into airway 06/12/2022 Priority: Not Prioritized Protein-calorie malnutrition, unspecified severity ([facility]) 06/03/2022 Priority: Not Prioritized Abdominal pain, generalized 05/30/2022 Priority: Not Prioritized Lethargy 05/30/2022 Priority: Not Prioritized History of stroke 05/30/2022 Priority: Not Prioritized Acute on chronic respiratory failure with hypoxia ([facility]) 05/30/2022 Priority: Not Prioritized Bacteremia 03/11/2022 Priority: Not Prioritized Ulcer of left foot ([facility]) 03/11/2022 Priority: Not Prioritized PAD (peripheral artery disease) ([facility]) 03/11/2022 Priority: Not Prioritized Severe protein-calorie malnutrition ([facility]) 03/11/2022 Priority: Not Prioritized Status epilepticus ([facility]) 12/30/2021 Priority: Not Prioritized Seizure disorder ([facility]) 12/30/2021 Priority: Not Prioritized Seizures ([facility]) 08/13/2020 Priority: Not Prioritized Therapeutic procedure Priority: Not Prioritized Cerebrovascular accident ([facility]) 06/13/2019 Priority: Not Prioritized Insomnia 06/13/2019 Priority: Not Prioritized Low back pain 06/13/2019 Priority: Not Prioritized Osteoporosis 11/22/2018 Priority: Not Prioritized Essential (primary) hypertension 07/24/2015 Priority: Not Prioritized Hyperlipidemia 04/14/2015 Priority: Not Prioritized Last Assessment & Plan: Continue home meds and monitor 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 Awaiting gastric emptying study * Tamie Dhaliwal RN - 12/03/2022 9:44 PM CDT Problem: Fall Risk Goal: Fall [...] engage in desired activity. Outcome: Progressing Problem: Safety related to restraint use Goal: Absence of injury while restrained Outcome: Progressing Problem: Mechanical Ventilation Goal: Patent airway Outcome: Progressing Goal: Tracheostomy will be managed safely Outcome: Progressing * Leonie Turner MD - 12/03/2022 6:30 AM CDT MICU Progress Note 12/03/2022 6:47 AM Patient: Mojgan Tabor (:1960) Room: [facility] Admit Date: 11/24/2022. Hospital Day: 8 Reason for admission: Intra-operative v tachy Hospital Course: Mojgan Tabor??with 62 M PMH of??chronic resp failure with new hypoxia, stroke, dementia, trach and PEG tube, and seizures??was admitted to the ICU following an ENT procedure??complicated by??intraoperative ventricular tachycardia.??The surgery was aborted due to Vtach run/.??The patient spontaneouslyconverted to sinus rhythm in the OR after 2-3 minutes. His course has been complicated by sinus tachycardia to the 140's and uncontrolled hypertension, which has improved with IV esmolol.??Switched from esmolol to metoprolol tartrate per cards recc.??Course complicated by presumed ventilator-associated pneumonia, currently treated with Cefepime. ?? Interval History: Overnight, pt was on vent settings: 8/5 with FiO2 of 25%. Today - spontaneous 5/5, tachypneic with low tidal volume in the 200's). Given clobazam for agitation. NPO for nuclear study. Nuclear medicine called and ssaid for accurate results, pt would need to be off narcotics, PPIs, etc for 48 hours ACS - gastric emptying study to assess the function of his stomach. IF this is normal there is no indication for distal feeding. If this is abnormal can ask IR to place a GJ tube for distal feeding. ?? Objective: Vitals: 12/03/22 0441 12/03/22 0500 12/03/22 0600 12/03/22 0605 BP: 124/66 128/75 Pulse: (!) 111 106 106 Resp: Temp: SpO2: 97% 92% 96% 96% Weight: Height: @IODETAIL@ +303 S RR: 12 bpm PEEP/CPAP: 5 cm H20 Pressure Support: 38 cm H2O Mean Airway Pressure (cm H2O): 8.5 cm H2O O2 %: 25 % Physical Exam General - NAD, afebrile, non cachectic HEENT - NC/AT, EOMI, clear conjunctivae, throat without erythema or exudate, moist mucous membranes Neck - Supple, no LAD, no JVD Chest - CTAB no crackles or wheezes bilaterally CV - RRR no murmurs, radial and DP pulses 2/4, good capillary refill Abdomen - Soft, NT/ND, +BS, no organomegaly Musculoskeletal - Moves all four extremities Extremities - No c/c/e Skin - No rashes, lesions or jaundice Neurologic - A&O x 3, no focal neurological deficits Psych - Appropriate mood and affect Labs: CBC: Recent Labs Component Name 12/03/2222812/02/2235512/01/22 033 WBC 9.4 13.6* 10.9* HGB 9.3* 9.6* 9.4* HCT 28.3* 29.2* 28.4* BMP: Recent Labs Component Name 12/03/2222812/02/22 0356 12/01/22 0338 NA 143 140 139 CL 111* 109* 109* CO2 22 25 23 BUN 18 14 10 CREATININE 0.50* 0.55* 0.53* CALCIUM 9.5 9.9 9.3 PHOS 2.6* 3.0 2.7* Hepatic: Recent Labs Component Name 12/03/2222812/02/226 12/01/22 0338 11/26/22 0310 11/25/22 0335 11/04/22 0633 10/09/22 1204 ALT - - - - 24 27 10 AST - - - - 24 25 15 TBILI - - - - 0.2 0.2 0.1* PROT - - - - 6.9 7.7 6.9 ALB 2.1* 2.2* 2.0* - 2.6* 2.9* 3.0* ALKPHOS - - - - 85 124 83 - = values in this interval not displayed. Coagulation: Recent Labs Component Name 08/28/22 2224 06/27/22 2215 05/11/22 1309 PT 15.2* 12.8 13.5 INR 1.2 1.0 1.0 Cardiac Markers: Recent Labs Component Name 07/11/22 0040 07/01/22 1634 06/28/22 0141 06/27/22 2215 05/30/22 1750 03/08/22 1455 12/31/21 0412 CKTOTAL 49 42 - - - - 77 TROPONINI - - <0.010 <0.010 <0.010 - - - = values in this interval not displayed. ABGs: No results for input(s): PHART, PO2ART, HKB5UXU, BEART in the last 14245 hours. Micro: none Imaging: Imaging reviewed. Assessment: V-tach (CMS/HCC) (POA: No) History of CVA (cerebrovascular accident) (POA: Yes) Seizure disorder (CMS/HCC) (POA: Yes) Acute on chronic respiratory failure with hypoxia (CMS/HCC) (POA: Yes) Protein-calorie malnutrition, unspecified severity (CMS/HCC) (POA: Yes) Sinus tachycardia (POA: Unknown) Dementia, vascular (CMS/HCC) (POA: Yes) Nasal polyp (POA: Yes) Hemoptysis (POA: Yes) Acute blood loss anemia (POA: Yes) PEG (percutaneous endoscopic gastrostomy) status (CMS/HCC) (POA: Yes) Tracheostomy in place (CMS/HCC) (POA: Yes) Uncontrolled hypertension (POA: No) PLAN: ?? Neurological:?? #History of CVA c/b Left Sided Deficits #Dementia #Seizure Disorder - on SEAMAN atorvastatin 40mg, Depakote 500mg q6h, Clobazam 20mg BID, ??Lacosamide 200mg BID, Midazolam 5mg nasal spray PRN -??holding SEAMAN ASA??due to??recent??bleeding ?? #Sedation -??propofol discontinued on 11/27??due to QTc prolongation > D/c precedex ?? Cardiovascular:?? #Intraoperative Ventricular Tachycardia - noted during ENT procedure on 11/26 with spontaneous conversion to sinus after 2-3 minutes - cardiology consult recommended no acute intervention - troponin within normal limits >??continue telemetry >??initiate amiodarone bolus with gtt if Vtach reoccurs > maintain K>4, Mg>2, hgb >9 ?? #Sinus Tachycardia #Hypertension #Premature Ventricular Contractions - heart rate and blood pressure consistently elevated overnight into this morning - patient has HTN at baseline; was not on any SEAMAN meds - IV nicardipine and fluid bolus administered without improvement in symptoms - CT PE negative, TSH wnl - 24h urine metanephrines WNL - cardiology consult: consider workup for pheochromocytoma, titrate BP with gtts and transition with oral antihypertensives - tachycardia and HTN improved with IV esmolol >??continue PRN Fentanyl??50mcg q1h to limit pain-related BP elevation ?? #QTc prolongation - baseline 455 - prolonged to 526 on most recent EKG -??patient's sedative switched from propofol to fentanyl??on 11/26 >??continue to monitor > avoid QT-prolonging medications ?? #PVD s/p L AKA - on SEAMAN atorvastatin 40mg - holding SEAMAN ASA due to bleeding ?? Pulmonary:?? #Acute on Chronic Hypoxic Respiratory Failure s/p tracheostomy #Antrochoanal Polyp c/b bleeding - tracheostomy placed Jun 2022 during admission for aspiration pneumonia -??[facility], 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 - surgical removal of bleeding polyp aborted due to Vtach run - epistat in place to control bleeding; posterior balloon deflated this AM - intubated with mechanical ventilation - CXR: tracheostomy tube stable in position -??SpO2 goal of 90% >??continue SEAMAN guaifenesin, levalbuterol >??hold SEAMAN scopolamine??patch > Continue to wean from ventilator Pharmacy> ID consult for bactrim. F/u reccs > f/u outpatient ENT ?? GI:?? #Dysphagia s/p PEG placement #Severe Protein Calorie Malnutrition - tube feeds via PEG for nutrition at home - [employer] consulted - over the last 2 years they have seen the patient several times and failed swallowstudy. Especially with being on ventilator, they are unable to perform another swallow study. > ACS does not recommend placing J tube. Recommended gastric emptying study to assess candidacy for GJ tube placement by IR > F/u gastric >??continue??diet NPO ?? Renal:?? #BPH - on SEAMAN tamsulosin 0.4mg Endocrine: BGM goal 140-180 mg/dL ?? ID:?? #Concern for Ventilator-Associated Pneumonia - patient developed low-grade fever on 11/28/22 > heavy pseudomonas growth in sputum cx, moderately sensitive to zosyn. > Continue cefepime for at least 10 days per pharmacy - ID consulted for antibiotic rec for pseudomonas and acinobacter Heme/Onc:?? #Tracheal Bleeding - 2/2 antrochoanal polyp - Hgb??dropped 12.5->10.7, previously stable > continue holding aspirin and chemical DVT ppx pending afternoon CBC > continue to trend CBC's daily > Keep tracheostomy cuff inflated to prevent aspiration of blood >??ENT managing??epistat; posterior balloon deflated, anterior balloon partially deflated > Afrin PRN >??ENT to follow outpatient FEN: -Monitor and replete electrolytes QD K<4, Mg<2, Phos<3 ? Lines: Type:?ETT, Jensen, PEG tube, PIV? Prophylaxis: Aspiration precautions w/ HOB elevation by 30 degrees GI prophyalxis w/ famotidine DVT prophyalxis w/ SCDs??only due to recent bleed?? Diet:?? Tube feeds via PEG Activity:?? Bedrest Disposition: ICU Monitoring Code Status:?FULL ?? Leonie Turner MD Associated attestation - Ilir Mckenzie MD - 12/03/2022 10:27 PM CDT I spent 32 minutes in full attendance with this critically-ill patient. Time spent was exclusive ofseparately billed procedures, treating other patients, and teaching time. I have reviewed and agreewith resident documentation. Critical care was necessary to treat or prevent life-threatening deterioration of the following: V-tach (CMS/HCC) (POA: No) History of CVA (cerebrovascular accident) (POA: Yes) Seizure disorder (CMS/HCC) (POA: Yes) Acute on chronic respiratory failure with hypoxia (CMS/HCC) (POA: Yes) Protein-calorie malnutrition, unspecified severity (CMS/HCC) (POA: Yes) Sinus tachycardia (POA: Unknown) Dementia, vascular ([facility]) (POA: Yes) Nasal polyp (POA: Yes) Hemoptysis (POA: Yes) Acute blood loss anemia (POA: Yes) PEG (percutaneous endoscopic gastrostomy) status ([facility]) (POA: Yes) Tracheostomy in place ([facility]) (POA: Yes) Uncontrolled hypertension (POA: No) Patient Active Problem List Diagnosis Date Noted COVID-19 04/14/2021 Priority: High History of CVA (cerebrovascular accident) 12/11/2020 Priority: High Cognitive communication deficit 08/25/2020 Priority: High Dysphagia, oropharyngeal phase 08/25/2020 Priority: High Epilepsy, unspecified, not intractable, without status epilepticus ([facility]) 05/25/2019 Priority: High Hemiplegia and 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- dominant side ([facility]) 05/25/2019 Priority: High Alzheimer's disease with early onset ([facility]) 05/17/2019 Priority: High Paroxysmal tachycardia, unspecified ([facility]) 05/16/2019 Priority: High Alcohol abuse, uncomplicated 08/13/2015 Priority: High Benign neoplasm of prostate 06/26/2015 Priority: High Other specified rheumatoid arthritis, unspecified site ([facility]) 06/26/2015 Priority: High Uncontrolled hypertension 11/28/2022 Priority: Not Prioritized Uncontrolled. V-tach ([facility]) 11/27/2022 Priority: Not Prioritized Nasal polyp 11/25/2022 Priority: Not Prioritized Hemoptysis 11/25/2022 Priority: Not Prioritized Acute blood loss anemia 11/25/2022 Priority: Not Prioritized PEG (percutaneous endoscopic gastrostomy) status ([facility]) 11/25/2022 Priority: Not Prioritized Tracheostomy in place ([facility]) 11/25/2022 Priority: Not Prioritized Pressure ulcer of right heel, stage 3 ([facility]) 10/17/2022 Priority: Not Prioritized Dementia, vascular ([facility]) 10/17/2022 Priority: Not Prioritized Atelectasis, right 07/05/2022 Priority: Not Prioritized Contrast-induced nephropathy 07/05/2022 Priority: Not Prioritized 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 Priority: Not Prioritized Leukocytosis, unspecified type 06/28/2022 Priority: Not Prioritized Sinus tachycardia 06/28/2022 Priority: Not Prioritized Hypoxia 06/28/2022 Priority: Not Prioritized Acute respiratory failure with hypoxia ([facility]) 06/28/2022 Priority: Not Prioritized Aspiration pneumonitis ([facility]) 06/13/2022 Priority: Not Prioritized Aspiration into airway 06/12/2022 Priority: Not Prioritized Protein-calorie malnutrition, unspecified severity ([facility]) 06/03/2022 Priority: Not Prioritized Abdominal pain, generalized 05/30/2022 Priority: Not Prioritized Lethargy 05/30/2022 Priority: Not Prioritized History of stroke 05/30/2022 Priority: Not Prioritized Acute on chronic respiratory failure with hypoxia ([facility]) 05/30/2022 Priority: Not Prioritized Bacteremia 03/11/2022 Priority: Not Prioritized Ulcer of left foot ([facility]) 03/11/2022 Priority: Not Prioritized PAD (peripheral artery disease) ([facility]) 03/11/2022 Priority: Not Prioritized Severe protein-calorie malnutrition ([facility]) 03/11/2022 Priority: Not Prioritized Status epilepticus ([facility]) 12/30/2021 Priority: Not Prioritized Seizure disorder ([facility]) 12/30/2021 Priority: Not Prioritized Seizures ([facility]) 08/13/2020 Priority: Not Prioritized Therapeutic procedure Priority: Not Prioritized Cerebrovascular accident ([facility]) 06/13/2019 Priority: Not Prioritized Insomnia 06/13/2019 Priority: Not Prioritized Low back pain 06/13/2019 Priority: Not Prioritized Osteoporosis 11/22/2018 Priority: Not Prioritized Essential (primary) hypertension 07/24/2015 Priority: Not Prioritized Hyperlipidemia 04/14/2015 Priority: Not Prioritized Last Assessment & Plan: Continue home meds and monitor 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 Priority: Not Prioritized The plan of care consists of: Continue vent support Weaning Pressure support Cardiology recs appreciated-on metoprolol. On cefepime for pseudomonas pneumonia On Bactrim. Awaiting gastric emptying study * Dimple Guerrero, CHAINSTITCH HEMMER - 12/02/2022 8:57 PM CDT Problem: Mechanical Ventilation Goal: Patent airway Outcome: Progressing Goal: Tracheostomy will be managed safely Outcome: Progressing * Melany Parmar RN - 12/02/2022 8:38 PM CDT Problem: Pain/Discomfort Goal: Patient verbalizes acceptable level of pain relief and ability to engage in desired activity. Outcome: Not Progressing Problem: Fall Risk Goal: Fall risk and fall related injury risk are minimized (interventions related to the fall risk can be found in the flowsheet documentation) Outcome: Progressing Problem: Skin Integrity Goal: Skin integrity is maintained or improved Outcome: Progressing Problem: Nutrient: Malnutrition Goal: Enteral/parenteral nutrition prescription will be consistent with estimated needs Outcome: Progressing Problem: Pain/Discomfort Goal: Patient exhibits reduced pain/discomfort as evidenced by pain scores Outcome: Progressing Goal: Patient uses pharmacological and non-pharmacological pain management strategies. Outcome: Progressing Problem: Safety related to restraint use Goal: Absence of injury while restrained Outcome: Progressing Problem: Mechanical Ventilation Goal: Patent airway Outcome: Progressing Goal: Tracheostomy will be managed safely Outcome: Progressing * Neha Waterman RCP - 12/02/2022 6:48 PM CDT Patient currently in SPONT mode with settings of 8/5 and 25% FiO2. Tracheostomy is clean and dry. No distress noted. * Tri Morrison MD - 12/02/2022 4:40 PM CDT ACUTE CARE SURGERY PLAN OF CARE Spoke extensively with patient's POA Ms. Hilliard. She is understandably frustrated that her brother keeps being hospitalized with aspiration pneumonia. She feels and has been told by other physicians that the G tube is the reason for his recurrent aspiration pneumonia. We discussed that we can obtain a gastric emptying study to assess the function of his stomach. IF this is normal there is no indication for distal feeding. If this is abnormal can ask IR to place a GJ tube for distal feeding. Tri Morrison MD, PGY-5 General Surgery Resident [facility] * Leonie Turner MD - 12/02/2022 3:55 PM CDT Spoke extensively with SHARI (sister) to provide updates about the care of her brother. She is frustrated that the J tube was not placed by [facility]. She wants to speak with the [facility] - please reach out to her. * Teri Tariq P - 12/02/2022 1:42 PM CDT Nutrition Re-Assessment Brief Synopsis: Patient is dx with malnutrition; Specific criteria can be found in assessment below Nutrition Plan: NPO + TF TF Recommendations: Vital AF 1.2 Bruno at goal of 55 ml/hr. Provides 1584 kcal, 99 g protein, 146 g carbohydrate and 1070 ml free water +50 ml q 6 hrs free water flush or per MD if on IVF +100 ml q4 hrs free water flush or per MD if not on additional fluids Alternative once Vital AF is out: Promote at goal of 65 ml/hr. Provides 1560 kcal, 98 g protein, 203 g carbohydrate, and 1309 ml free water +50 ml q 6 hrs free water flush or per MD if on IVF +100 ml q4 hrs free water flush or per MD if not on additional fluids Recommendations to Physician: none Comments: Pt scheduled for reassessment. Current TF Vital AF 1.2 @ 55ml/hr. Recommend continuing TFat current rate. Plan to replace PEG tube with J tube, date unknown. Team to trail trach collar today. Labs reviewed, lytes normal. Last BM 12/01. RD to monitor per guidelines. Drips: dexmedeTOMIDine, 0-1.5 mcg/kg/hr, Last Rate: 0.3 mcg/kg/hr (12/02/22 0657) Assessment: Med/Surg History and Clinical Diagnoses: 62 year old male w/PMHx significant for prior CVA c/b left-sided residual deficits, seizure disorder, dementia, dysphagia w/ recurrent aspiration s/p PEG, zenker divertiuculum s/p diverticulectomy 2022, chronic hypoxic respiratory faiure s/p trach 06/2022, PVD s/p L AKA, and HTN who [facility]) for acute on chronic hypoxic respiratory failure and evaluation of bleeding from tracheostomy Diet order accuracy Current diet order: NPO Current supplement order: None Current tube feeding order: VAF @ 55 ml/hr Nutrition recommendation: agree with current nutrition order P.O.Intake for the past 48 hrs:No data recorded Supplement(s) Consumed- Last 48 hours None Food Allergies: No known food allergies GI Concerns: Other (Comment) (PEG) Chewing/Swallowing: Other (Comment) (ETT) Pain affecting intake:No Admission weight: Weight: 54.9 kg (121 lb) (11/25/22 0620) Recent Weights/Methods 10/11/2022 0400 10/12/2022 0400 11/25/2022 0620 11/27/2022 0041 11/29/2022 0600 11/30/2022 0344 12/01/2022 0347 12/02/2022 0355 Weight: 54.4 kg (120 lb) 54.9 kg (121 lb) 54.9 kg (121 lb) 69.9 kg (154 lb 1.6 oz) 69.9 kg (154 lb)69.2 kg (152 lb 8 oz) 68.6 kg (151 lb 3.2 oz) 70.3 kg (155 lb) Weight Method (Utilize Scales): Bedscale Bedscale -- Bedscale -- Bedscale Bedscale Bedscale BMI: Body mass index is 22.24 kg/m??. BMI Range: (adjusted BMI 23.5 with BKA) Wt Comments: reviewed, questionable weight gain of 33lbs Height: 177.8 cm (5' 10 ) IBW/lb (Calculated) Male: 89 , Laboratory values reviewed. Recent Labs Component Name 12/02/22 0356 12/01/22 0338 11/30/22 0320 11/26/22 0310 11/25/22 0335 11/04/22 0633 10/12/22 0716 10/09/22 1204 BUN 14 10 8 - 16 14 - 14 CREATININE 0.55* 0.53* 0.54* - 0.45* 0.47* - 0.39* NA 140 139 139 - 138 136 - 140 POTASSIUM 4.3 3.8 3.8 - 4.5 4.0 - 4.0 CL 109* 109* 108* - 108* 106 - 108* CO2 25 23 25 - 26 24 - 24 GLUCOSE 105 124* 108 - 91 98 - 115 CALCIUM 9.9 9.3 9.3 - 9.5 9.7 - 9.8 PROT - - - - 6.9 7.7 - 6.9 ALB 2.2* 2.0* 2.0* - 2.6* 2.9* - 3.0* TBILI - - - - 0.2 0.2 - 0.1* ALKPHOS - - - - 85 124 - 83 ALT - - - - 24 27 - 10 AST - - - - 24 25 - 15 ANIONGAP 10 11 10 - 9 10 - 12 BCR 25* 19 15 - 36* 30* - 36* OSMOLALITY 291 288 287 - 287 282 - 291 AGRATIO - - - - 0.6* 0.6* - 0.8* EGFR >90 >90 >90 - >90 >90 - >90 - = values in this interval not displayed. Medications noted. Current Facility-Administered Medications Medication ??? 0.9% NaCl injection 3 mL And ??? 0.9% NaCl injection 1-10 mL ??? acetaminophen (Tylenol) tablet 500 mg ??? artificial tears ophthalmic ointment ??? atorvastatin (Lipitor) tablet 40 mg ??? cefepime (Maxipime) 2,000 mg in 0.9% NaCl IV 50 mL IVPB ??? chlorhexidine (Peridex) 0.12 % oral solution 15 mL ??? cloBAZam (Onfi) tablet 20 mg ??? dexmedeTOMIDine (Precedex) 400 mcg in 100 mL NS infusion premix ??? dextrose 10 % IV bolus Or ??? dextrose 10 % IV bolus ??? divalproex sprinkle (Depakote Sprinkle) capsule 500 mg ??? famotidine (Pepcid) tablet 20 mg ??? fentaNYL (PF) (Sublimaze) injection 50 mcg ??? folic acid (Folvite) tablet 1 mg ??? glucagon (Glucagen) injection 1 mg ??? glucose (Diabetic Use) (Dex4 Glucose) oral liquid ??? glucose (Diabetic Use) oral gel ??? glucose chew tablet 4 tablet ??? guaiFENesin (Robitussin) solution 10 mL ??? insulin lispro (HumaLOG;ADMelog) 100 UNIT/ML pen 0-6 Units ??? lacosamide (Vimpat) tablet 200 mg ??? levalbuterol (Xopenex) nebulizer solution 1.25 mg ??? levETIRAcetam (Keppra) tablet 2,000 mg ??? metoprolol tartrate IR (Lopressor) tablet 25 mg ??? polyethylene glycol 3350 (Miralax) packet 17 g ??? senna-docusate (Senokot-S) tablet 1 tablet ??? tamsulosin (Flomax) capsule 0.4 mg ??? thiamine (Vitamin B-1) tablet 100 mg Skin/Wound: surgical incision on nose Estimated Energy Needs: KCAL: 8285-6917 (20-25kcal/kg ABW) Protein (g): 84-139 (1.2-2.0g/kg ABW) Fluid (ml): 1 ml/kcal Needs based on: Kcal/kg- (Comment) (69.9kg) Recommended Access Route: TF Malnutrition Etiology: Malnutrition in the context of: chronic disease, Malnutrition Severity: Severe Unintended weight change: Severe weight loss Weight Loss: > 7.5% x 3 months BMI: Body mass index is 22.24 kg/m??. GI Concerns: Other (Comment) (PEG) Nutrition Focused Physical Assessment: Loss of Subcutaneous Fat Orbital: Severe Buccal: Severe Muscle Loss Temples (Temporalis Muscle): Severe Clavicles (Pectoralis & Deltoids): Severe Shoulders (Deltoids): Severe Thigh (Quadriceps): Severe Education needed: None Education Provided: Not appropriate Nutrition Care Process (1) Nutrition Diagnostic Statement: Malnutrition severity: : Severe related to:: inadequate protein-energy intake as evidenced by:: unintentional weight loss;loss of subcutaneous fat;loss of muscle mass;BMI less than 19 Nutrition Diagnostic Statement Progress: Nutrition problem continues Nutrition Intervention: Enteral nutrition: Monitoring: GI, TF, I&O's, weight, labs, medications. Evaluation: Nutrition Goal: Enteral/Parenteral Nutrition prescription will be consistent with estimated nutrient needs Nutrition Goal Timeframe: Throughout stay Nutrition Goal Progress: Continue with current goal Ascom [id number] * Suresh Jaquez RN - 12/02/2022 11:01 AM CDT Care Coordination Progress Note Anticipated level of care at discharge: [facility] - Medicaid Discharge Plan: TBD CM spoke with sister (SHARI) regarding LTAC referral. Sister was adamant that no referral be sent until she spoke with the MD. States they don't know him. They need to take out that Jtube because that's why he keeps aspirating and making him sick. They need to replace it and send him back to [facility]. CM will discuss during MICU MDR in the AM. READMISSION RISK SCORE is 28 at 11:01 AM 12/02/2022. Anticipated Discharge Date: 12/03/22 Patient/Family provided with list of resources? Yes Preferred Provider / High Quality Network List given?: Unknown Reason for provider choice: Pt. choice - previous provider Family Support (Name and Phone): Extended Emergency Contact Information Primary Emergency Contact: Adriane Hilliard Mobile Relation: Sister Farm Operator needed? No Secondary Emergency Contact: [facility] Relation: Brother Patient is alert & orientated or has capacity for decision making: No If No , Legal or Designated Decision Maker: Sister (Name: Adriane Hilliard, ) Transportation at Discharge: Ambulance Equipment at Home: Equipment at Home: Facility Equipment List DME patient requires but does not have: DME Provider: Medication affordability concerns: No Follow Up Appointment: Transportation to MD: Ambulance Auth Number (if required): [place]: DME: Medications: Transportation: Name: Suresh Jaquez RN Phone: [phone] * Mely Rodriguez - 12/02/2022 9:36 AM CDT Contractor General Building came for a follow up visit. Patient remains intubated and sedated. Brother was in the roomand spoke about having confidence that this was all in God's hands. He said that his prayer is God's will be done. There were no current pastoral care needs. Brother was assured of the ongoing availability of pastoral care when / if needed. 440/01 Mely Rodriguez 12/02/2022 9:38 AM #[id number] * Rickie Salas MD - 12/02/2022 7:48 AM CDT Otolaryngology - Head and Neck Surgery Progress Note Today's Date: 12/02/2022 Subjective HPI: Mojgan Tabor is a 62 year old male with a hx of R. Occipital stroke (2014), head injury, seizures, Alzheimer's, Right BKA, refractory epilepsy, dysphasia w/PEG tube placement on 03/25/22 previously with recurrent aspirations now s/p transcervical Zenker's diverticulectomy, tracheostomy 07/15/22 (). Patient sent to ED from facility 2/2 tracheal and oral bleeding that began 11/24. Workup at outside ED also concerning for pneumonia with likely complete R bronchial occlusion with CXR. Upon consultation here, bronched at bedside by ENT. Right main bronchus with improved ventilation after suctioning/lavage (large amounts of purulence removed). Endoscopy at that time also revealed a bleeding right antrochoanal polyp that completely occludes right nasal cavity and the right half of the choana. Patient now s/p bilateral nasal endoscopy, right maxillary antrostomy, and removal of polyp 11/26/22(). Procedure complicated by VTACH intraop and further bleeding from right nare in PACU. Epistat and surgiflo ultimately placed in right nare (anterior balloon: 16 ml saline, posterior balloon 8 mlsaline). Interval History: Per nursing staff, pt woke up during the night and manually removed his epistat. PT is not activelybleeding and is not in acute distress. No other acute events overnight and pt is stable sleeping inbed this AM. Objective Temp (30hrs) Max:99.8 ??F (37.7 ??C) Temp: [97.8 ??F (36.6 ??C)-99 ??F (37.2 ??C)] 98.1 ??F (36.7 ??C) Pulse: [80-130] 93 Resp: [5-39] 15 BP: (83-189)/(53-107) 94/58 O2 %: [25 %] 25 % Intake/Output Summary (Last 24 hours) at 12/02/2022 0748 Last data filed at 12/02/2022 0657 Gross per 24 hour Intake 1973.87 ml Output 2350 ml Net -376.13 ml DIET NPO Except: NO EXCEPTIONS DIET TUBE FEEDING CONTINUOUS Physical Exam: Constitutional: NAD Neuro: cranial nerves III-XII grossly intact CV/Pulm: On vent Nose: Epistat manually removed by pt overnight, no bleeding Mouth and oropharynx: symmetric tongue mobility, no lesions/masses/ulcers, no blood noted in oropharynx. Neck: supple, trach in place Assessment and Plan Mojgan Tabor is a 62 year old male with medical complexity, including tracheostomy dependence and known antrochoanal polyp, admitted for concern for pneumonia and bleeding from antrochoanal polyp. Right main bronchus with improved ventilation after suctioning/lavage (large amounts of purulence remov ed). Patient now s/p bilateral nasal endoscopy, right maxillary antrostomy, and removal of polyp 11/26/22 (). Procedure complicated by VTACH intraop and further bleeding from right nare in PACU. Epistat and surgiflo ultimately placed in right nare. Epistate removed by pt this AM. PLAN: - Took down posterior epistat 11/27 - Anterior balloon deflated by half 11/28 - Epistat completely removed by pt this AM, no active bleeding present - Keep tracheostomy cuff inflated to prevent aspiration of blood. - Afrin PRN - Pt is stable and no other acute ENT interventions at this time - ENT will sign off on this pt Please call ENT with any further bleeding, questions or concerns. Rickie Salas MD Anethesiology Resident, PGY1 12/02/2022 7:48 AM * Leonie Turner MD - 12/02/2022 6:47 AM CDT MICU Progress Note 12/02/2022 9:59 AM Patient: Mojgan Tabor (:1960) Room: 440/01 Admit Date: 11/24/2022. Hospital Day: 7 Reason for Admission: intra-operative [facility] Course: Mojgan Tabor??with 62 M PMH of??chronic resp failure with new hypoxia, stroke, dementia, trach and PEG tube, and seizures??was admitted to the ICU following an ENT procedure??complicated by??intraoperative ventricular tachycardia.??The surgery was aborted due to Vtach run/.??The patient spontaneouslyconverted to sinus rhythm in the OR after 2-3 minutes. His course has been complicated by sinus tachycardia to the 140's and uncontrolled hypertension, which has improved with IV esmolol.??Switched from esmolol to metoprolol tartrate per cards recc.??Course complicated by presumed ventilator-associated pneumonia, currently treated with Cefepime. Interval History: Overnight, became agitated, tachy and hypertensive, EKG at 11pm: sinus tachy, minimally resposive to 40 fentayl, required zyprexa and continuous precedex and restraints. Put back on rate control. This morning, ventilator settings are 10/5 on pressure control Per pharmacy, he was switched from zosyn to cefepime x 10 days per pharmacy. D/c vanc. ACS does not rec J tube in this scenario as there is no evidence to suggest that he is aspirating tube feeds. It is more likely that he is aspirating his oropharyngeal secretions rather than tube feeds. Per, ENT signed off on patient as he is stable from their standpoint. Objective: Vitals: 12/02/22 0610 12/02/22 0701 12/02/22 0800 12/02/22 0902 BP: 94/58 97/61 Pulse: 81 93 87 81 Resp: 16 15 15 Temp: 97.4 ??F (36.3 ??C) SpO2: 96% 96% 96% 97% Weight: Height: @IODETAIL@ net -376 (1970, 1700) S RR: 12 bpm PEEP/CPAP: 5 cm H20 Pressure Support: 5 cm H2O Mean Airway Pressure (cm H2O): 8.9 cm H2O O2 %: 25 % Physical Exam General - NAD, asleep in bed, afebrile, non cachectic Neck - Supple, no LAD, no JVD Chest - CTAB no crackles or wheezes bilaterally CV - RRR no murmurs Abdomen - Soft, NT/ND, +BS, no organomegaly Musculoskeletal - did not assess Extremities - No c/c/e Skin - No rashes, lesions or jaundice Neurologic - A&O x 3, no focal neurological deficits Psych - Appropriate mood and affect Labs: CBC: Recent Labs Component Name 12/02/22 0356 12/01/22 0338 11/30/22 0320 WBC 13.6* 10.9* 8.9 HGB 9.6* 9.4* 8.0* HCT 29.2* 28.4* 24.8* BMP: Recent Labs Component Name 12/02/22 0356 12/01/22 0338 11/30/22 0320 NA 140 139 139 CL 109* 109* 108* CO2 25 23 25 BUN 14 10 8 CREATININE 0.55* 0.53* 0.54* CALCIUM 9.9 9.3 9.3 PHOS 3.0 2.7* 2.9 Hepatic: Recent Labs Component Name 12/02/22 0356 12/01/22 0338 11/30/22 0320 11/26/22 0310 11/25/22 0335 11/04/22 0633 10/09/22 1204 ALT - - - - 24 27 10 AST - - - - 24 25 15 TBILI - - - - 0.2 0.2 0.1* PROT - - - - 6.9 7.7 6.9 ALB 2.2* 2.0* 2.0* - 2.6* 2.9* 3.0* ALKPHOS - - - - 85 124 83 - = values in this interval not displayed. Coagulation: Recent Labs Component Name 08/28/22 2224 06/27/22221405/11/22 1309 PT 15.2* 12.8 13.5 INR 1.2 1.0 1.0 Cardiac Markers: Recent Labs Component Name 07/11/22 0040 07/01/22 1634 06/28/22 0141 06/27/22 2215 05/30/22 1750 03/08/22 1455 12/31/21 0412 CKTOTAL 49 42 - - - - 77 TROPONINI - - <0.010 <0.010 <0.010 - - - = values in this interval not displayed. ABGs: No results for input(s): PHART, PO2ART, OXT1PDN, BEART in the last 05306 hours. Micro: heavy pseudomonas on sputum moderate sensitivity to zosyn. Imaging: Imaging reviewed. Assessment: PLAN: ?? Neurological:?? #History of CVA c/b Left Sided Deficits #Dementia #Seizure Disorder - on SEAMAN atorvastatin 40mg, Depakote 500mg q6h, Clobazam 20mg BID, ??Lacosamide 200mg BID, Midazolam 5mg nasal spray PRN - holding SEAMAN ASA due to??recent??bleeding #Sedation -??propofol discontinued on 11/27??due to QTc prolongation - Minimally responsive to fentanyl per last agitation episode - Required continuous precedex and zyprexa > Continue IV precedex (zyprexa better?) ?? Cardiovascular:?? #Intraoperative Ventricular Tachycardia - noted during ENT procedure on 11/26 with spontaneous conversion to sinus after 2-3 minutes - cardiology consult recommended no acute intervention - troponin within normal limits > continue telemetry >??initiate amiodarone bolus with gtt if Vtach reoccurs > maintain K>4, Mg>2, hgb >9 ?? #Sinus Tachycardia #Hypertension #Premature Ventricular Contractions - heart rate and blood pressure consistently elevated overnight into this morning - patient has HTN at baseline; was not on any SEAMAN meds - IV nicardipine and fluid bolus administered without improvement in symptoms - CT PE negative, TSH wnl - cardiology consult: consider workup for pheochromocytoma, titrate BP with gtts and transition with oral antihypertensives - tachycardia and HTN improved with IV esmolol > continue PRN Fentanyl 50mcg q1h to limit pain-related BP elevation >??f/u??24h urine metanephrines to assess for pheochromocytoma ?? #QTc prolongation - baseline 455 - prolonged to 526 on most recent EKG - patient's sedative switched from propofol to fentanyl??on 11/26 > continue to monitor > avoid QT-prolonging medications ?? #PVD s/p L AKA - on SEAMAN atorvastatin 40mg - holding SEAMAN ASA due to bleeding ?? Pulmonary:?? #Acute on Chronic Hypoxic Respiratory Failure s/p tracheostomy #Antrochoanal Polyp c/b bleeding - tracheostomy placed Jun 2022 during admission for aspiration pneumonia - In senior living facility, 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 - surgical removal of bleeding polyp aborted due to Vtach run - epistat in place to control bleeding; posterior balloon deflated this AM - intubated with mechanical ventilation - CXR: tracheostomy tube stable in position - SpO2 goal of 90% > continue SEAMAN guaifenesin, levalbuterol > hold SEAMAN scopolamine patch until ENT recommends resuming > Spontaneous to wean from ventilator GI:?? #Dysphagia s/p PEG placement #Severe Protein Calorie Malnutrition - tube feeds via PEG for nutrition at home - STACK YIELD ENGINEER consulted - over the last 2 years they have seen the patient several times and failed swallowstudy. Especially with being on ventilator, they are unable to perform another swallow study. > ACS will not J tube placement.. > continue diet NPO ?? Renal:?? #BPH - on SEAMAN tamsulosin 0.4mg Endocrine: BGM goal 140-180 mg/dL ?? ID:?? #Concern for Ventilator-Associated Pneumonia - patient developed low-grade fever on 11/28/22 > heavy pseudomonas growth in sputum cx, moderately sensitive to zosyn. > Continue cefepime for at least 10 days per pharmacy - ID consulted for antibiotic rec for pseudomonas and acinobacter Heme/Onc:?? #Tracheal Bleeding - 2/2 antrochoanal polyp - Hgb??dropped 12.5->10.7, previously stable > continue holding aspirin and chemical DVT ppx pending afternoon CBC > continue to trend CBC's daily > Keep tracheostomy cuff inflated to prevent aspiration of blood >??ENT managing??epistat; posterior balloon deflated, anterior balloon partially deflated > Afrin PRN > ENT to follow outpatient FEN: -Monitor and replete electrolytes QD K<4, Mg<2, Phos<3 ? Lines: Type:?ETT, Jensen, PEG tube, PIV?* Prophylaxis: Aspiration precautions w/ HOB elevation by 30 degrees GI prophyalxis w/ famotidine DVT prophyalxis w/ SCDs??only due to recent bleed?? Diet:?? Tube feeds via PEG Activity:?? Bedrest Disposition: ICU Monitoring Code Status:?FULL Leonie Turner MD Associated attestation - Ilir Mckenzie MD - 12/02/2022 7:53 PM CDT I spent 32 minutes in full attendance with this critically-ill patient. Time spent was exclusive ofseparately billed procedures, treating other patients, and teaching time. I have reviewed and agreewith resident documentation. Critical care was necessary to treat or prevent life-threatening deterioration of the following: V-tach (CMS/HCC) (POA: No) History of CVA (cerebrovascular accident) (POA: Yes) Seizure disorder (CMS/HCC) (POA: Yes) Acute on chronic respiratory failure with hypoxia (CMS/HCC) (POA: Yes) Protein-calorie malnutrition, unspecified severity (CMS/HCC) (POA: Yes) Sinus tachycardia (POA: Unknown) Dementia, vascular (CMS/HCC) (POA: Yes) Nasal polyp (POA: Yes) Hemoptysis (POA: Yes) Acute blood loss anemia (POA: Yes) PEG (percutaneous endoscopic gastrostomy) status (CMS/HCC) (POA: Yes) Tracheostomy in place (CMS/HCC) (POA: Yes) Uncontrolled hypertension (POA: No) Patient Active Problem List Diagnosis Date Noted COVID-19 04/14/2021 Priority: High History of CVA (cerebrovascular accident) 12/11/2020 Priority: High Cognitive communication deficit 08/25/2020 Priority: High Dysphagia, oropharyngeal phase 08/25/2020 Priority: High Epilepsy, unspecified, not intractable, without status epilepticus (CMS/HCC) 05/25/2019 Priority: High Hemiplegia and 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- dominant side (CMS/HCC) 05/25/2019 Priority: High Alzheimer's disease with early onset (CMS/HCC) 05/17/2019 Priority: High Paroxysmal tachycardia, unspecified (CMS/HCC) 05/16/2019 Priority: High Alcohol abuse, uncomplicated 08/13/2015 Priority: High Benign neoplasm of prostate 06/26/2015 Priority: High Other specified rheumatoid arthritis, unspecified site ([facility]) 06/26/2015 Priority: High Uncontrolled hypertension 11/28/2022 Priority: Not Prioritized Uncontrolled. V-tach ([facility]) 11/27/2022 Priority: Not Prioritized Nasal polyp 11/25/2022 Priority: Not Prioritized Hemoptysis 11/25/2022 Priority: Not Prioritized Acute blood loss anemia 11/25/2022 Priority: Not Prioritized PEG (percutaneous endoscopic gastrostomy) status ([facility]) 11/25/2022 Priority: Not Prioritized Tracheostomy in place ([facility]) 11/25/2022 Priority: Not Prioritized Pressure ulcer of right heel, stage 3 ([facility]) 10/17/2022 Priority: Not Prioritized Dementia, vascular ([facility]) 10/17/2022 Priority: Not Prioritized Atelectasis, right 07/05/2022 Priority: Not Prioritized Contrast-induced nephropathy 07/05/2022 Priority: Not Prioritized 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 Priority: Not Prioritized Leukocytosis, unspecified type 06/28/2022 Priority: Not Prioritized Sinus tachycardia 06/28/2022 Priority: Not Prioritized Hypoxia 06/28/2022 Priority: Not Prioritized Acute respiratory failure with hypoxia ([facility]) 06/28/2022 Priority: Not Prioritized Aspiration pneumonitis ([facility]) 06/13/2022 Priority: Not Prioritized Aspiration into airway 06/12/2022 Priority: Not Prioritized Protein-calorie malnutrition, unspecified severity ([facility]) 06/03/2022 Priority: Not Prioritized Abdominal pain, generalized 05/30/2022 Priority: Not Prioritized Lethargy 05/30/2022 Priority: Not Prioritized History of stroke 05/30/2022 Priority: Not Prioritized Acute on chronic respiratory failure with hypoxia ([facility]) 05/30/2022 Priority: Not Prioritized Bacteremia 03/11/2022 Priority: Not Prioritized Ulcer of left foot ([facility]) 03/11/2022 Priority: Not Prioritized PAD (peripheral artery disease) ([facility]) 03/11/2022 Priority: Not Prioritized Severe protein-calorie malnutrition ([facility]) 03/11/2022 Priority: Not Prioritized Status epilepticus ([facility]) 12/30/2021 Priority: Not Prioritized Seizure disorder ([facility]) 12/30/2021 Priority: Not Prioritized Seizures ([facility]) 08/13/2020 Priority: Not Prioritized Therapeutic procedure Priority: Not Prioritized Cerebrovascular accident ([facility]) 06/13/2019 Priority: Not Prioritized Insomnia 06/13/2019 Priority: Not Prioritized Low back pain 06/13/2019 Priority: Not Prioritized Osteoporosis 11/22/2018 Priority: Not Prioritized Essential (primary) hypertension 07/24/2015 Priority: Not Prioritized Hyperlipidemia 04/14/2015 Priority: Not Prioritized Last Assessment & Plan: Continue home meds and monitor 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 Priority: Not Prioritized The plan of care consists of: Continue vent support Weaning Pressure support Cardiology recs appreciated-on metoprolol. On cefepime for pseudomonas pneumonia Add Bactrim. * Michelle Maloney RCP - 12/02/2022 6:03 AM CDT Patient is on ventilator with 6.0 Bivona. RT will continue to follow while patient is on vent. Problem: Mechanical Ventilation Goal: Patent airway Outcome: Progressing Goal: Tracheostomy will be managed safely Outcome: Progressing * Melayn Parmar RN - 12/01/2022 9:39 PM CDT Problem: Fall Risk Goal: Fall risk and fall related injury risk are minimized (interventions related to the fall risk can be found in the flowsheet documentation) Outcome: Progressing Problem: Skin Integrity Goal: Skin integrity is maintained or improved Outcome: Progressing Problem: Nutrient: Malnutrition Goal: Enteral/parenteral nutrition prescription will be consistent with estimated needs Outcome: Progressing Problem: Pain/Discomfort Goal: Patient exhibits reduced pain/discomfort as evidenced by pain scores Outcome: Progressing Goal: Patient uses pharmacological and non-pharmacological pain management strategies. Outcome: Progressing * Caio Oliveira - 12/01/2022 3:21 PM CDT Chart reviewed Patient is not medically ready to transition to next level of care Patient to receive J tube placement Current oxygen needs are 25L at 30% FiO2 Post acute recommendation: Return to [facility] Insurance authorization is not required for post acute care needs Payer/Plan Subscriber Name Rel Member # Group # MEDICAID - [place] -* MOJGAN TABOR Self [id number] [address] [address] Updates faxed to prior facility Continued Care and Services - Admitted Since 11/24/2022 Destination Service Provider Request Status Selected Services Address Phone Fax Patient Preferred [facility]Pending - Request Sent N/A [id number] [facility] [id number] -- Current Capacity last updated by Yu Nguyễn on 04/21/2022 [id number] Consult Instructor Of Sociology for any new social needs as they present prior to discharge See Nurse Case Management note(s) for medical updates and progress toward discharge/disposition plans Thank you, CLARITA Rico, PRACHI [facility] [phone] 12/01/2022 3:22 PM * Leonie Turner MD - 12/01/2022 12:11 PM CDT Spoke with sister (SHARI) again today. She said she was told by Dr. Harden (cardiology) and another provider that J tube is the better option for Mr. Tabor. Updated her about the followin. Weaning patient off the ventilator since he was in a trache[facility] collar [facility] prior to admission. 2. Acute care surgery consulted for J tube placement in place of PEG tube. 3. Speech Language pathology evaluated the patient multiple times in the past 2 years and he has repeatedly failed swallow evaluations. At this time, they will not evaluate for swallow function , especially while still on ventilator. Sister understood the plan and was on board. * Mely Rodriguez - 12/01/2022 10:55 AM CDT did initial visit with patient and his two sisters who were present at bedside. Patient had open eyes but didn't seem aware of people in the room. Sisters talked about how much patient likesthe phrase: God is good, all the time (All the time, God is good)!) Contractor General Building prayed with patient and family and family expressed appreciation. [employer]or [employer] Building assured them of the ongoing availability of pastoral care when/if needed. 440/01 Mely Rodriguez 12/01/2022 10:58 AM #[id number] * Abimbola Goldman MD - 12/01/2022 8:24 AM CDT Otolaryngology - Head and Neck Surgery Progress Note Today's Date: 12/01/2022 Subjective HPI: Mojgan Tabor is a 62 year old male with a hx of R. Occipital stroke (2014), head injury, seizures, Alzheimer's, Right BKA, refractory epilepsy, dysphasia w/PEG tube placement on 03/25/22 previously with recurrent aspirations now s/p transcervical Zenker's diverticulectomy, tracheostomy 07/15/22 (). Patient sent to ED from facility /2 tracheal and oral bleeding that began 11/24. Workup at outside ED also concerning for pneumonia with likely complete R bronchial occlusion with CXR. Upon consultation here, bronched at bedside by ENT. Right main bronchus with improved ventilation after suctioning/lavage (large amounts of purulence removed). Endoscopy at that time also revealed a bleeding right antrochoanal polyp that completely occludes right nasal cavity and the right half of the choana. Patient now s/p bilateral nasal endoscopy, right maxillary antrostomy, and removal of polyp 11/26/22(). Procedure complicated by VTACH intraop and further bleeding from right nare in PACU. Epistat and surgiflo ultimately placed in right nare (anterior balloon: 16 ml saline, posterior balloon 8 mlsaline). Interval History: NAEO. No bleeding around epistat this morning. Objective Temp (30hrs) Max:100 ??F Temp: [98.6 ??F-100 ??F] 98.6 ??F Pulse: [94-130] 99 Resp: [12-25] 17 BP: (91-206)/(58-105) 117/73 O2 %: [25 %] 25 % Intake/Output Summary (Last 24 hours) at 12/01/2022 0824 Last data filed at 12/01/2022 0800 Gross per 24 hour Intake 3132.08 ml Output 2835 ml Net 297.08 ml DIET NPO Except: NO EXCEPTIONS DIET TUBE FEEDING CONTINUOUS Physical Exam: Constitutional: NAD Neuro: cranial nerves III-XII grossly intact CV/Pulm: On vent Nose: R epistat in place, no bleeding Mouth and oropharynx: symmetric tongue mobility, no lesions/masses/ulcers, no blood noted in oropharynx. Neck: supple, trach in place Assessment and Plan Mojgan Tabor is a 62 year old male with medical complexity, including tracheostomy dependence and known antrochoanal polyp, admitted for concern for pneumonia and bleeding from antrochoanal polyp. Right main bronchus with improved ventilation after suctioning/lavage (large amounts of purulence remov ed). Patient now s/p bilateral nasal endoscopy, right maxillary antrostomy, and removal of polyp 11/26/22 (). Procedure complicated by VTACH intraop and further bleeding from right nare in PACU. Epistat and surgiflo ultimately placed in right nare. PLAN: - Took down posterior epistat 11/27 - Anterior balloon deflated by half 11/28, inflated anterior balloon with additional 10 cc of saline (total 18 cc) 11/30 given recurrent oozing around epistat. Plan to keep it inflated for additional ~5 days - Keep tracheostomy cuff inflated to prevent aspiration of blood. - Afrin PRN Please call ENT with any further bleeding, questions or concerns. Abimbola Dallas MD Otolaryngology Resident, PGY3 12/01/2022 8:26 AM * Leonie Turner MD - 12/01/2022 6:45 AM CDT MICU Progress Note 12/01/2022 7:20 AM Patient: Mojgan Tabor (:1960) Room: 440/01 Admit Date: 11/24/2022. Hospital Day: 6 Reason for Admission: Intra-operative V tachy Hospital Course: Mojgan Tabor with PMH of chronic resp failure with new hypoxia, stroke, dementia, trach and PEG tube,and seizures was admitted to the ICU following an ENT procedure??complicated by??intraoperative ventricular tachycardia. The surgery was aborted due to Vtach run/. The patient spontaneously convertedto sinus rhythm in the OR after 2-3 minutes. His course has been complicated by sinus tachycardia to the 140's and uncontrolled hypertension, which has improved with IV esmolol.??Switched from esmolol to metoprolol tartrate per cards recc. Course complicated by presumed ventilator-associated pneumonia, currently treated with Zosyn and vancomycin. Interval History: Overnight, patient did not require fentanyl sedation. He received 1 unit blood. Reviewed patient's advance directives, which state he would like to be pursue all treatments necessary to stay alive. Spoke with POA (Sister, Ms. Forrest) about goals of care, given he was admitted about 6 times over the last 6 months-1 year. She believed hospitalizations were secondary to PEG tube causing aspiration pneumonia as she was told by the cardiology service, and that patient will improveif PEG tube comes out since it was inserted initially as a temporary measure. Per hospitalizationcharts in February 2022, patient had dysphagia with failed barium swallow and severe malnourishment.An NGT was attempted unsuccessfully as it would not stay in place. At that time, patient was on PPNand GI service was consulted for PEG tube placement. It was explained to Ms. Forrest that the PEG tube is currently his sole route of nutrition. I explained it is possible to attempt a swallow study ifhe will tolerate it and attempt weaning him down from the ventilator. Objective: Vitals: 12/01/22 0500 12/01/22 0527 12/01/22 0600 12/01/22 0800 BP: 96/58 117/73 Pulse: 96 94 99 Resp: 18 18 17 Temp: 98.6 ??F (37 ??C) SpO2: 97% 97% 96% Weight: Height: @IODETAIL@ net positive 647 (3332, 2685) S RR: 12 bpm PEEP/CPAP: 5 cm H20 Mean Airway Pressure (cm H2O): 8.5 cm H2O O2 %: 25 % Physical Exam General - NAD, afebrile, non cachectic HEENT - NC/AT, EOMI, clear conjunctivae, throat without erythema or exudate, moist mucous membranes Neck - Supple, no LAD, no JVD Chest - CTAB no crackles or wheezes bilaterally CV - RRR no murmurs, radial and DP pulses 2/4, good capillary refill Abdomen - Soft, NT/ND, +BS, no organomegaly Musculoskeletal - Moves all four extremities Extremities - No c/c/e Skin - No rashes, lesions or jaundice Neurologic - A&O x 3, no focal neurological deficits Psych - Appropriate mood and affect Labs: CBC: Recent Labs Component Name 12/01/2233711/30/2231911/29/22311 WBC 10.9* 8.9 12.9* HGB 9.4* 8.0* 9.1* HCT 28.4* 24.8* 27.3* BMP: Recent Labs Component Name 12/01/2233711/30/2231911/29/22311 NA 139 139 136 CL 109* 108* 108* CO2 23 BUN 10 8 11 CREATININE 0.53* 0.54* 0.47* CALCIUM 9.3 9.3 9.0 PHOS 2.7* 2.9 2.7* Hepatic: Recent Labs Component Name 12/01/2233711/30/22 0320 11/29/22 0312 11/26/22 0310 11/25/22 0335 11/04/22 0633 10/09/22 1204 ALT - - - - 24 27 10 AST - - - - 24 25 15 TBILI - - - - 0.2 0.2 0.1* PROT - - - - 6.9 7.7 6.9 ALB 2.0* 2.0* 2.2* - 2.6* 2.9* 3.0* ALKPHOS - - - - 85 124 83 - = values in this interval not displayed. Coagulation: Recent Labs Component Name 08/28/22 2224 06/27/22 2215 05/11/22 1309 PT 15.2* 12.8 13.5 INR 1.2 1.0 1.0 Cardiac Markers: Recent Labs Component Name 07/11/22 0040 07/01/22 1634 06/28/22 0141 06/27/22 2215 05/30/22 1750 03/08/22 1455 12/31/21 0412 CKTOTAL 49 42 - - - - 77 TROPONINI - - <0.010 <0.010 <0.010 - - - = values in this interval not displayed. ABGs: No results for input(s): PHART, PO2ART, JIH6LUM, BEART in the last 33902 hours. Micro: None Imaging: None Assessment: 62 yo M w/ PMH of chronic resp failure with new hypoxia, stroke, dementia, trach and PEG tube, and seizures was admitted to the ICU following an ENT procedure??complicated by??intraoperative ventricular tachycardia. V-tach (CMS/HCC) (POA: No) History of CVA (cerebrovascular accident) (POA: Yes) Seizure disorder (CMS/HCC) (POA: Yes) Acute on chronic respiratory failure with hypoxia (CMS/HCC) (POA: Yes) Protein-calorie malnutrition, unspecified severity (CMS/HCC) (POA: Yes) Sinus tachycardia (POA: Unknown) Dementia, vascular (CMS/HCC) (POA: Yes) Nasal polyp (POA: Yes) Hemoptysis (POA: Yes) Acute blood loss anemia (POA: Yes) PEG (percutaneous endoscopic gastrostomy) status (CMS/HCC) (POA: Yes) Tracheostomy in place (CMS/HCC) (POA: Yes) Uncontrolled hypertension (POA: No) PLAN: ?? Neurological: #History of CVA c/b Left Sided Deficits #Dementia #Seizure Disorder - on SEAMAN atorvastatin 40mg, Depakote 500mg q6h, Clobazam 20mg BID, ??Lacosamide 200mg BID, Midazolam 5mg nasal spray PRN - holding SEAMAN ASA due to??recent??bleeding #Sedation -??propofol discontinued on 11/27??due to QTc prolongation >PRN IV fentanyl. Was not given over the past 2 days ?? Cardiovascular: #Intraoperative Ventricular Tachycardia - noted during ENT procedure on 11/26 with spontaneous conversion to sinus after 2-3 minutes - cardiology consult recommended no acute intervention - troponin within normal limits > continue telemetry >??initiate amiodarone bolus with gtt if Vtach reoccurs > maintain K>4, Mg>2, hgb >9 ?? #Sinus Tachycardia #Hypertension #Premature Ventricular Contractions - heart rate and blood pressure consistently elevated overnight into this morning - patient has HTN at baseline; was not on any SEAMAN meds - IV nicardipine and fluid bolus administered without improvement in symptoms - CT PE negative, TSH wnl - cardiology consult: consider workup for pheochromocytoma, titrate BP with gtts and transition with oral antihypertensives - tachycardia and HTN improved with IV esmolol > continue PRN Fentanyl 50mcg q1h to limit pain-related BP elevation > f/u 24h urine metanephrines to assess for pheochromocytoma ?? #QTc prolongation - baseline 455 - prolonged to 526 on most recent EKG - patient's sedative switched from propofol to fentanyl??on 11/26 > continue to monitor > avoid QT-prolonging medications #PVD s/p L AKA - on SEAMAN atorvastatin 40mg - holding SEAMAN ASA due to bleeding ?? Pulmonary: #Acute on Chronic Hypoxic Respiratory Failure s/p tracheostomy #Antrochoanal Polyp c/b bleeding - tracheostomy placed Jun 2022 during admission for aspiration pneumonia - In senior living facility, 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 - surgical removal of bleeding polyp aborted due to Vtach run - epistat in place to control bleeding; posterior balloon deflated this AM - intubated with mechanical ventilation - CXR: tracheostomy tube stable in position - SpO2 goal of 90% > continue SEAMAN guaifenesin, levalbuterol > hold SEAMAN scopolamine patch until ENT recommends resuming > Anticipating discharge to senior living care facility, we are currently weaning from ventilator - Social work and case management aware of anticipated discharge pending ACS consult (J-tube) and ventilator weaning. GI: #Dysphagia s/p PEG placement #Severe Protein Calorie Malnutrition - tube feeds via PEG for nutrition at home - [employer] consulted - over the last 2 years they have seen the patient several times and failed swallowstudy. Especially with being on ventilator, they are unable to perform another swallow study. > ACS consulted for J tube placement. F/u evaluation and reccs. > continue diet NPO Renal: #BPH - on SEAMAN tamsulosin 0.4mg Endocrine: BGM goal 140-180 mg/dL ?? ID: #Concern for Ventilator-Associated Pneumonia - patient developed low-grade fever on 11/28/22 > initiated vancomycin + Zosyn for presumed ventilator-associated pneumonia and recent history of MRSA infection > sputum culture with gram stain Heme/Onc: #Tracheal Bleeding - 2/2 antrochoanal polyp - Hgb??dropped 12.5->10.7, previously stable > continue holding aspirin and chemical DVT ppx pending afternoon CBC > continue to trend CBC's daily > Keep tracheostomy cuff inflated to prevent aspiration of blood >??ENT managing??epistat; posterior balloon deflated, anterior balloon partially deflated > Afrin PRN > ENT following FEN: -Monitor electrolytes QD, Replace K<4, Mg<2, Phos<3 ? Lines: Type: ??ETT, Jensen, PEG tube, PIV ?* Prophylaxis: Aspiration precautions w/ HOB elevation by 30 degrees GI prophyalxis w/ famotidine DVT prophyalxis w/ SCDs only due to recent bleed Diet: Tube feeds via PEG Activity: Bedrest Disposition: ICU Monitoring Code Status: FULL Leonie Turner MD Associated attestation - Ilir Mckenzie MD - 12/01/2022 10:16 PM CDT I spent 32 minutes in full attendance with this critically-ill patient. Time spent was exclusive ofseparately billed procedures, treating other patients, and teaching time. I have reviewed and agreewith resident documentation. Critical care was necessary to treat or prevent life-threatening deterioration of the following: V-tach (CMS/HCC) (POA: No) History of CVA (cerebrovascular accident) (POA: Yes) Seizure disorder (CMS/HCC) (POA: Yes) Acute on chronic respiratory failure with hypoxia (CMS/HCC) (POA: Yes) Protein-calorie malnutrition, unspecified severity (CMS/HCC) (POA: Yes) Sinus tachycardia (POA: Unknown) Dementia, vascular (CMS/HCC) (POA: Yes) Nasal polyp (POA: Yes) Hemoptysis (POA: Yes) Acute blood loss anemia (POA: Yes) PEG (percutaneous endoscopic gastrostomy) status (CMS/HCC) (POA: Yes) Tracheostomy in place ([facility]) (POA: Yes) Uncontrolled hypertension (POA: No) Patient Active Problem List Diagnosis Date Noted COVID-19 04/14/2021 Priority: High History of CVA (cerebrovascular accident) 12/11/2020 Priority: High Cognitive communication deficit 08/25/2020 Priority: High Dysphagia, oropharyngeal phase 08/25/2020 Priority: High Epilepsy, unspecified, not intractable, without status epilepticus ([facility]) 05/25/2019 Priority: High Hemiplegia and 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- dominant side ([facility]) 05/25/2019 Priority: High Alzheimer's disease with early onset ([facility]) 05/17/2019 Priority: High Paroxysmal tachycardia, unspecified ([facility]) 05/16/2019 Priority: High Alcohol abuse, uncomplicated 08/13/2015 Priority: High Benign neoplasm of prostate 06/26/2015 Priority: High Other specified rheumatoid arthritis, unspecified site ([facility]) 06/26/2015 Priority: High Uncontrolled hypertension 11/28/2022 Priority: Not Prioritized Uncontrolled. V-tach ([facility]) 11/27/2022 Priority: Not Prioritized Nasal polyp 11/25/2022 Priority: Not Prioritized Hemoptysis 11/25/2022 Priority: Not Prioritized Acute blood loss anemia 11/25/2022 Priority: Not Prioritized PEG (percutaneous endoscopic gastrostomy) status ([facility]) 11/25/2022 Priority: Not Prioritized Tracheostomy in place ([facility]) 11/25/2022 Priority: Not Prioritized Pressure ulcer of right heel, stage 3 ([facility]) 10/17/2022 Priority: Not Prioritized Dementia, vascular ([facility]) 10/17/2022 Priority: Not Prioritized Atelectasis, right 07/05/2022 Priority: Not Prioritized Contrast-induced nephropathy 07/05/2022 Priority: Not Prioritized 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 Priority: Not Prioritized Leukocytosis, unspecified type 06/28/2022 Priority: Not Prioritized Sinus tachycardia 06/28/2022 Priority: Not Prioritized Hypoxia 06/28/2022 Priority: Not Prioritized Acute respiratory failure with hypoxia ([facility]) 06/28/2022 Priority: Not Prioritized Aspiration pneumonitis ([facility]) 06/13/2022 Priority: Not Prioritized Aspiration into airway 06/12/2022 Priority: Not Prioritized Protein-calorie malnutrition, unspecified severity ([facility]) 06/03/2022 Priority: Not Prioritized Abdominal pain, generalized 05/30/2022 Priority: Not Prioritized Lethargy 05/30/2022 Priority: Not Prioritized History of stroke 05/30/2022 Priority: Not Prioritized Acute on chronic respiratory failure with hypoxia ([facility]) 05/30/2022 Priority: Not Prioritized Bacteremia 03/11/2022 Priority: Not Prioritized Ulcer of left foot ([facility]) 03/11/2022 Priority: Not Prioritized PAD (peripheral artery disease) ([facility]) 03/11/2022 Priority: Not Prioritized Severe protein-calorie malnutrition ([facility]) 03/11/2022 Priority: Not Prioritized Status epilepticus ([facility]) 12/30/2021 Priority: Not Prioritized Seizure disorder ([facility]) 12/30/2021 Priority: Not Prioritized Seizures ([facility]) 08/13/2020 Priority: Not Prioritized Therapeutic procedure Priority: Not Prioritized Cerebrovascular accident ([facility]) 06/13/2019 Priority: Not Prioritized Insomnia 06/13/2019 Priority: Not Prioritized Low back pain 06/13/2019 Priority: Not Prioritized Osteoporosis 11/22/2018 Priority: Not Prioritized Essential (primary) hypertension 07/24/2015 Priority: Not Prioritized Hyperlipidemia 04/14/2015 Priority: Not Prioritized Last Assessment & Plan: Continue home meds and monitor 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 Priority: Not Prioritized The plan of care consists of: Continue vent support Weaning Pressure support Cardiology recs appreciated-on metoprolol. ENT following patient for nasal bleed. DC Vancomycin and zosyn. Started on cefepime for pseudomonas pneumonia * Meka Barber, PharmD - 11/30/2022 7:42 PM CDT ACTIVE CONSULTS TO PHARMACY/DISEASE STATE MONITORING Pharmacy Consult: Vancomycin ASSESSMENT/PLAN Indication: suspected Pneumonia with Goal Level: AUC 400-600 ID consulted/following: No Assessment: ?? Day of treatment: 3 ?? End of treatment date: to be determined ?? Current dosing regimen: 1250 mg, Q12 hr ??? Renal assessment: considered stable at this time as patient has Estimated Creatinine Clearance:140.6 mL/min (A) (by C-G formula based on SCr of 0.54 mg/dL (L)). ??? MRSA positive: Yes ??? Peak (1st) level on 11/30 at 0617 was 24.9 mcg/ml and trough (2nd) level on 11/30 at 1508 was 13.1 mcg/ml. Recent Labs Component Name 11/30/22 1508 11/30/22 0617 09/10/22 0906 09/02/22 0848 08/31/22 0923 07/04/22 0145 07/03/22 0405 07/02/22 0531 VANCORNDM - - - - - 22.0 26.1 32.1 VANCTROUGH 13.1 - 14.1 20.7* 11.5 - - - VANCOPEAK - 24.9* - - - - - - ??? Using steady state pharmacokinetic calculations, calculated AUC = 491 mg- hr/L and is therapeutic to goal Plan ??? Dosing: o Will continue current regimen. ??? Monitoring o Will order a vancomycin peak level after maintenance dose on 12/02 at 0615 and trough level prior to maintenance dose on 12/02 at 1400 and adjust regimen if indicated. o Continue to monitor patient???s renal function and cultures as needed. Meka Barber, PharmD 11/30/2022 7:42 PM [facility] Vancomycin Guideline SUBJECTIVE/OBJECTIVE Mojgan Tabor is a 62 year old male. The primary encounter diagnosis was Pneumonia of right lung dueto infectious organism, unspecified part of lung. Diagnoses of Hemoptysis, Nasal polyp, Tracheostomy in place (CMS/HCC), Polyp of right nasal cavity, Status epilepticus (CMS/HCC), Paroxysmal tachycardia, unspecified (CMS/HCC), Sinus tachycardia, Ventricular tachycardia (CMS/HCC), Hypoxia, Essential(primary) hypertension, and V-tach (CMS/HCC) were also pertinent to this visit. Height: 5' 10 (177.8 cm) Wt 69.2 kg (152 lb 8 oz) Body mass index is 21.88 kg/m??. Recent Labs Component Name 11/30/22 0320 11/29/22 0312 11/28/22 0434 11/27/22 0318 CREATININE 0.54* 0.47* 0.50* 0.45* BUN 8 11 12 8 WBC 8.9 12.9* 14.6* 15.4* IO last 3 completed shifts In: 3408.4 (49.3 mL/kg) [I.V.:611.4 (0.2 mL/kg/hr); Tube:2024 (29.3 mL/kg); Enteral:772] Out: 4225 (61.1 mL/kg) [Urine:4225 (1.7 mL/kg/hr)] Net: -816.6 Weight: 69.2 kg Dialysis Orders (72h ago, onward) None Radiocontrast within 72 hours The 3 most recent administrations since 11/27/2022 are shown below each listed medication. Other Order Route Dose Action Date iopamidol (Isovue 370) 76 % contrast Intravenous 75 mL $ Given - Contrast 11/27/2022 Vancomycin Administrations from [facility] (last 72 hours) Date/Time Action Medication Dose Rate 11/30/22 1512 $ New Bag/Syringe vancomycin (Vancocin) 1,250 mg in 250 mL NaCl IVPB Premix 1,250 mg 200 mL/hr 11/30/22 0406 Rate Change vancomycin (Vancocin) 1,250 mg in 250 mL NaCl IVPB Premix 200 mL/hr 11/30/22 0406 Rate Change vancomycin (Vancocin) 1,250 mg in 250 mL NaCl IVPB Premix 5 mL/hr 11/30/22 0247 $ New Bag/Syringe vancomycin (Vancocin) 1,250 mg in 250 mL NaCl IVPB Premix 1,250 mg 200 mL/hr 11/29/22 1603 $ New Bag/Syringe vancomycin (Vancocin) 1,250 mg in 250 mL NaCl IVPB Premix 1,250 mg 200 mL/hr 11/29/22 0314 $ New Bag/Syringe vancomycin (Vancocin) 1,250 mg in 250 mL NaCl IVPB Premix 1,250 mg 200 mL/hr 11/28/22 1509 Rate Change vancomycin (Vancocin) 1,750 mg in 535 mL IVPB 305.71 mL/hr 11/28/22 1509 $ New Bag/Syringe vancomycin (Vancocin) 1,750 mg in 535 mL IVPB 1,750 mg 305.71 mL/hr * Juan Jose Hernandez MD - 11/30/2022 12:03 PM CDT Otolaryngology - Head and Neck Surgery Progress Note Today's Date: 11/30/2022 Subjective HPI: Mojgan Tabor is a 62 year old male with a hx of R. Occipital stroke (2014), head injury, seizures, Alzheimer's, Right BKA, refractory epilepsy, dysphasia w/PEG tube placement on 03/25/22 previously with recurrent aspirations now s/p transcervical Zenker's diverticulectomy, tracheostomy 07/15/22 (). Patient sent to ED from facility 07/01 tracheal and oral bleeding that began 11/24. Workup at outside ED also concerning for pneumonia with likely complete R bronchial occlusion with CXR. Upon consultation here, bronched at bedside by ENT. Right main bronchus with improved ventilation after suctioning/lavage (large amounts of purulence removed). Endoscopy at that time also revealed a bleeding right antrochoanal polyp that completely occludes right nasal cavity and the right half of the choana. Patient now s/p bilateral nasal endoscopy, right maxillary antrostomy, and removal of polyp 11/26/22(). Procedure complicated by VTACH intraop and further bleeding from right nare in PACU. Epistat and surgiflo ultimately placed in right nare (anterior balloon: 16 ml saline, posterior balloon 8 mlsaline). Interval History: Increased oozing from around epistat in right nostril overnight. Objective Temp (30hrs) Max:100.4 ??F (38 ??C) Temp: [98.5 ??F (36.9 ??C)-99 ??F (37.2 ??C)] 98.8 ??F (37.1 ??C) Pulse: [93-130] 130 Resp: [12-17] 12 BP: (102-146)/(59-97) 108/66 O2 %: [25 %] 25 % Intake/Output Summary (Last 24 hours) at 11/30/2022 1203 Last data filed at 11/30/2022 1011 Gross per 24 hour Intake 2182.24 ml Output 2525 ml Net -342.76 ml DIET NPO Except: NO EXCEPTIONS DIET TUBE FEEDING CONTINUOUS Physical Exam: Constitutional: thin adult male, no acute distress. Neuro:cranial nerves III-XII grossly intact CV/Pulm: tachycardic. On ventilator. Eyes: PERRL, EOMI Face/Skin: normal appearance, no lesions/masses Ears: Normal external auditory canals bilaterally. Nose: R Epistat in place with some blood oozing from the nare. Mouth and oropharynx: symmetric tongue mobility, no lesions/masses/ulcers, no blood noted in oropharynx. Neck: supple, no lymphadenopathy, no masses, 6.0 TTS bivona, no active bleeding from trach. MusculoSkeletal: moves all extremities well Labs: CBC Recent Labs Component Name 11/30/2231911/29/22 03111/28/22 0434 WBC 8.9 12.9* 14.6* HGB 8.0* 9.1* 10.7* HCT 24.8* 27.3* 32.3* PLTCOUNT 205 202 244 BMP Recent Labs Component Name 11/30/2231911/29/22 0312 11/28/22 0434 POTASSIUM 3.8 4.1 4.1 CO2 25 23 21* BUN 8 11 12 CREATININE 0.54* 0.47* 0.50* GLUCOSE 108 125* 129* CALCIUM 9.3 9.0 9.5 PHOS 2.9 2.7* 3.4 LFTs Recent Labs Component Name 11/25/22 0335 11/04/22 0633 10/09/22 1204 AST 24 25 15 ALT 24 27 10 ALKPHOS 85 124 83 Coags Recent Labs Component Name 08/28/22 2224 06/27/22 2215 05/11/22 1309 PT 15.2* 12.8 13.5 INR 1.2 1.0 1.0 ABG Recent Labs Component Name 11/27/22 0328 11/26/22 2041 11/26/22 1840 02/25/21 1212 04/11/15 0622 PH 7.47* 7.48* 7.48* - 7.38 PO2 84 123* 95 - 134* PCO2 35 35 34* - 36 HCO3 - - - - 20.9* BE 2.1* 2.8* 2.1* - -3.6* - = values in this interval not displayed. Recent Imaging: CT CHEST W CONTRAST Result Date: 11/25/2022 Impression: 1.Trace amount of debris in the right main bronchus, improved from previous examinationwith almost complete resolution of atelectasis in the right middle lobe with decreased right lower lobe atelectasis and decreased mediastinal shift. 2.Minimal debris is noted in the trachea proximal to the tracheostomy tube. > Dictated by Usman Arce MD, MD (resident medical officer). IAshwin MD have personally reviewed and interpreted this examination/study. > Interpreting Provider: Ashwin Read MD on 11/25/2022 11:[address] SINUS WWO CONTRAST Result Date: 11/25/2022 IMPRESSION: 1.Complete opacification of the right maxillary [...] the right eustachian tube, potentially by the abovementioned nasopharyngeal component. Findings are compatible with right antrochoanal polyp versus malignant neoplasm given the interval change and hemoptysis. Recommend ENT consultation with direct biliary dilatation and possible biopsy. 2.Scattered paranasal sinus mucosal thickening. These findingswere discussed in detail with the patient's care provider, Dr. Kinsey by Dr. Yañez via telephoneat 9:22 AM on 11/25/2022 with readback comprehension and verification. > Dictated by Christian Yañez DO (resident medical officer). I, Jason Sanchez MD have personally reviewed and interpreted this exam ination/study. > Interpreting Provider: Jason Sanchez MD on 11/25/2022 10:53 AM Recent Micro: Recent Results (from the past 124 hour(s)) MRSA DNA PCR Collection Time: 11/25/22 10:22 AM Specimen: Nasal; Microbiology Result Value Ref Range MRSA DNA by PCR Detected (Abnormal) Not detected CULTURE SPUTUM+GRAM STAIN Collection Time: 11/28/22 2:27 PM Specimen: Sputum; Microbiology Result Value Ref Range Culture Heavy Pseudomonas aeruginosa (Abnormal) Gram Stain <10 per low power field Squamous epithelial cells Gram Stain >= 25 per low power field Polymorphonuclear cells Gram Stain Heavy Gram-negative bacilli Gram Stain Heavy Gram-positive bacilli Susceptibility Pseudomonas aeruginosa - JELLY Amikacin <=2 Susceptible ug/mL Cefepime 2 Susceptible ug/mL Ceftazidime 8 Susceptible ug/mL Ciprofloxacin <=0.25 Susceptible ug/mL Gentamicin <=1 Susceptible ug/mL Meropenem 0.5 Susceptible ug/mL Piperacillin-tazobactam 32 Intermediate ug/mL Tobramycin <=1 Susceptible ug/mL Pathology: Specimens (From admission, onward) None Assessment and Plan Mojgan Tabor is a 62 year old male with medical complexity, including tracheostomy dependence and known antrochoanal polyp, admitted for concern for pneumonia and bleeding from antrochoanal polyp. Right main bronchus with improved ventilation after suctioning/lavage (large amounts of purulence remov ed). Patient now s/p bilateral nasal endoscopy, right maxillary antrostomy, and removal of polyp 11/26/22 (). Procedure complicated by VTACH intraop and further bleeding from right nare in PACU. Epistat and surgiflo ultimately placed in right nare. PLAN: - Took down posterior epistat 11/27 - Anterior balloon deflated by half 11/28, inflated anterior balloon with additional 10 cc of saline (total 18 cc) today 11/30 - Keep tracheostomy cuff inflated to prevent aspiration of blood. - Afrin PRN - Appreciate cardiology rec's regarding perioperative VTACH and ongoing tachycardia Please call ENT with any further bleeding, questions or concerns. Juan Jose Hernandez MD Otolaryngology Resident PGY-2 11/30/2022 12:05 PM * Leonie Turner MD - 11/30/2022 8:35 AM CDT MICU Progress Note 11/30/2022 8:35 AM Patient: Mojgan Tabor (:1960) Room: [facility] Admit Date: 11/24/2022. Hospital Day: 5 Reason for Admission: intraoperative Vtachy Hospital Course: Interval History: Overnight, desat on 5L> given BiPAP. Cards: no intervention at this time. Keep Hgb >9, K>4, and Mg>2. Transfusion today and electrolyte repletion. Spoke with ENT about goals of care. Anterior epistat balloon was reinflated and needs to stay in for 5 more days. It is unlikely that ENT will take the patient to the OR during this admission, and patient can be discharged with epistat still in place. Objective: Vitals: 11/30/22 0400 11/30/22 0500 11/30/22 0543 11/30/22 0600 BP: 146/97 142/83 108/66 Pulse: 106 107 (!) 129 (!) 113 Resp: 13 14 17 12 Temp: 98.8 ??F (37.1 ??C) SpO2: 98% 93% 99% 100% Weight: Height: @IODETAIL@ net + 483 (2808, 2325) S RR: 12 bpm PEEP/CPAP: 5 cm H20 Mean Airway Pressure (cm H2O): 9.8 cm H2O O2 %: 25 % Physical Exam General - NAD, afebrile, non cachectic HEENT - NC/AT, EOMI, clear conjunctivae, throat without erythema or exudate, moist mucous membranes Neck - Supple, no LAD, no JVD Chest - CTAB no crackles or wheezes bilaterally CV - RRR no murmurs, radial and DP pulses 2/4, good capillary refill Abdomen - Soft, NT/ND, +BS, no organomegaly Musculoskeletal - Moves all four extremities Extremities - No c/c/e Skin - No rashes, lesions or jaundice Neurologic - A&O x 3, no focal neurological deficits Psych - Appropriate mood and affect Labs: CBC: Recent Labs Component Name 11/30/2231911/29/2231111/28/22 0434 WBC 8.9 12.9* 14.6* HGB 8.0* 9.1* 10.7* HCT 24.8* 27.3* 32.3* BMP: Recent Labs Component Name 11/30/2231911/29/2231111/28/22 0434 NA 139 136 136 CL 108* 108* 108* CO2 25 23 21* BUN 8 11 12 CREATININE 0.54* 0.47* 0.50* CALCIUM 9.3 9.0 9.5 PHOS 2.9 2.7* 3.4 Hepatic: Recent Labs Component Name 11/30/22 0320 11/29/22 0312 11/28/22 0434 11/26/22 0310 11/25/22 0335 11/04/22 0633 10/09/22 1204 ALT - - - - 24 27 10 AST - - - - 24 25 15 TBILI - - - - 0.2 0.2 0.1* PROT - - - - 6.9 7.7 6.9 ALB 2.0* 2.2* 2.4* - 2.6* 2.9* 3.0* ALKPHOS - - - - 85 124 83 - = values in this interval not displayed. Coagulation: Recent Labs Component Name 08/28/22 2224 06/27/22 22105/11/22 1309 PT 15.2* 12.8 13.5 INR 1.2 1.0 1.0 Cardiac Markers: Recent Labs Component Name 07/11/22 0040 07/01/22 1634 06/28/22 0141 06/27/22 2215 05/30/22 1750 03/08/22 1455 12/31/21 0412 CKTOTAL 49 42 - - - - 77 TROPONINI - - <0.010 <0.010 <0.010 - - - = values in this interval not displayed. ABGs: No results for input(s): PHART, PO2ART, EWN0VQZ, BEART in the last 90975 hours. Micro: sputum: pseudomonas. Nasal swab: MRSA Imaging: ECHO with apical hypokinesis to akinesis and LVH with normal global function. Assessment: V-tach (CMS/HCC) (POA: No) History of CVA (cerebrovascular accident) (POA: Yes) Seizure disorder (CMS/HCC) (POA: Yes) Acute on chronic respiratory failure with hypoxia (CMS/HCC) (POA: Yes) Protein-calorie malnutrition, unspecified severity (CMS/HCC) (POA: Yes) Sinus tachycardia (POA: Unknown) Dementia, vascular (CMS/HCC) (POA: Yes) Nasal polyp (POA: Yes) Hemoptysis (POA: Yes) Acute blood loss anemia (POA: Yes) PEG (percutaneous endoscopic gastrostomy) status (CMS/HCC) (POA: Yes) Tracheostomy in place (CMS/HCC) (POA: Yes) Uncontrolled hypertension (POA: No) PLAN: ?? Neurological: #History of CVA c/b Left Sided Deficits #Dementia #Seizure Disorder - on SEAMAN atorvastatin 40mg, Depakote 500mg q6h, Clobazam 20mg BID, ??Lacosamide 200mg BID, Midazolam 5mg nasal spray PRN - holding SEAMAN ASA due to??recent??bleeding #Sedation -??propofol discontinued on 11/27??due to QTc prolongation >??sedation with prn IV fentanyl ?? Cardiovascular: #Intraoperative Ventricular Tachycardia - noted during ENT procedure on 11/26 with spontaneous conversion to sinus after 2-3 minutes - cardiology consult recommended no acute intervention - troponin within normal limits - echo: apical hypokinesis to akinesis and LVH with normal global function. > continue telemetry >??initiate amiodarone bolus with gtt if Vtach reoccurs > maintain K>4, Mg>2, hgb >9 ?? #Sinus Tachycardia #Hypertension #Premature Ventricular Contractions - heart rate and blood pressure consistently elevated overnight into this morning - patient has HTN at baseline; was not on any SEAMAN meds - IV nicardipine and fluid bolus administered without improvement in symptoms - CT PE negative, TSH wnl - cardiology consult: consider workup for pheochromocytoma, titrate BP with gtts and transition with oral antihypertensives - tachycardia and HTN improved with IV esmolol -??Switched esmolol to metop tartrate per cards > continue Fentanyl 50mcg q1h PRN to limit pain-related BP elevation > f/u 24h urine metanephrines to assess for pheochromocytoma > f/u TTE ?? #QTc prolongation - baseline 455 - prolonged to 526 on most recent EKG > continue to monitor > avoid QT-prolonging medications > patient's sedative switched from propofol to fentanyl??on 11/26 ?? #PVD s/p L AKA - on SEAMAN atorvastatin 40mg - holding SEAMAN ASA due to bleeding ?? Pulmonary: #Acute on Chronic Hypoxic Respiratory Failure s/p tracheostomy #Antrochoanal Polyp c/b bleeding - tracheostomy placed Jun 2022 during admission for aspiration pneumonia - surgical removal of bleeding polyp aborted due to Vtach run - epistat in place to control bleeding; anterior balloon reinflated this AM (11/30/2022). - intubated with mechanical ventilation - CXR: tracheostomy tube stable in position > continue SEAMAN guaifenesin, levalbuterol > hold SEAMAN scopolamine patch until ENT recommends resuming > Not interventions per ENT at this time. Epistat ok to stay when discharged. F/u outpatient, > SpO2 goal of 90% > Will try to de-escalate ventilation as tolerated. ?? GI: #Dysphagia s/p PEG placement #Severe Protein Calorie Malnutrition - tube feeds via PEG for nutrition at home > diet NPO for any additional surgical interventions, reinitiate diet as soon as possible Renal: #BPH - on SEAMAN tamsulosin 0.4mg Endocrine: BGM goal 140-180 mg/dL ?? ID: #Concern for Ventilator-Associated Pneumonia - patient developed low-grade fever on 11/28/22 > Continue vancomycin + Zosyn for presumed ventilator-associated pneumonia and recent history ofMRSA infection > sputum culture with gram stain: pseudomonas Heme/Onc: #Tracheal Bleeding - 2/2 antrochoanal polyp - Hgb??dropped 12.5->10.7>8 (11/30/2022), previously stable > continue holding aspirin and chemical DVT ppx pending afternoon CBC > continue to trend CBC's daily > Keep tracheostomy cuff inflated to prevent aspiration of blood >??ENT managing??epistat; Reinflated anterior balloon (11/30/2022). > Afrin PRN FEN: -Monitor electrolytes QD, Replace K<4, Mg<2, Phos<3 ? Lines: Type: ??ETT, Jensen, PEG tube, PIV ?* Prophylaxis: Aspiration precautions w/ HOB elevation by 30 degrees GI prophyalxis w/ famotidine DVT prophyalxis w/ SCDs only due to recent bleed Diet: Tube feeds via PEG Activity: Bedrest Disposition: ICU Monitoring Code Status: FULL Leonei Turner MD Associated attestation - Ilir Mckenzie MD - 11/30/2022 8:03 PM CDT I spent 32 minutes in full attendance with this critically-ill patient. Time spent was exclusive ofseparately billed procedures, treating other patients, and teaching time. I have reviewed and agreewith resident documentation. Critical care was necessary to treat or prevent life-threatening deterioration of the following: V-tach ([facility]) (POA: No) History of CVA (cerebrovascular accident) (POA: Yes) Seizure disorder (CMS/HCC) (POA: Yes) Acute on chronic respiratory failure with hypoxia (CMS/HCC) (POA: Yes) Protein-calorie malnutrition, unspecified severity (CMS/HCC) (POA: Yes) Sinus tachycardia (POA: Unknown) Dementia, vascular (CMS/HCC) (POA: Yes) Nasal polyp (POA: Yes) Hemoptysis (POA: Yes) Acute blood loss anemia (POA: Yes) PEG (percutaneous endoscopic gastrostomy) status ([facility]) (POA: Yes) Tracheostomy in place ([facility]) (POA: Yes) Uncontrolled hypertension (POA: No) Patient Active Problem List Diagnosis Date Noted COVID-19 04/14/2021 Priority: High History of CVA (cerebrovascular accident) 12/11/2020 Priority: High Cognitive communication deficit 08/25/2020 Priority: High Dysphagia, oropharyngeal phase 08/25/2020 Priority: High Epilepsy, unspecified, not intractable, without status epilepticus ([facility]) 05/25/2019 Priority: High Hemiplegia and 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- dominant side ([facility]) 05/25/2019 Priority: High Alzheimer's disease with early onset ([facility]) 05/17/2019 Priority: High Paroxysmal tachycardia, unspecified ([facility]) 05/16/2019 Priority: High Alcohol abuse, uncomplicated 08/13/2015 Priority: High Benign neoplasm of prostate 06/26/2015 Priority: High Other specified rheumatoid arthritis, unspecified site ([facility]) 06/26/2015 Priority: High Uncontrolled hypertension 11/28/2022 Priority: Not Prioritized Uncontrolled. V-tach ([facility]) 11/27/2022 Priority: Not Prioritized Nasal polyp 11/25/2022 Priority: Not Prioritized Hemoptysis 11/25/2022 Priority: Not Prioritized Acute blood loss anemia 11/25/2022 Priority: Not Prioritized PEG (percutaneous endoscopic gastrostomy) status ([facility]) 11/25/2022 Priority: Not Prioritized Tracheostomy in place ([facility]) 11/25/2022 Priority: Not Prioritized Pressure ulcer of right heel, stage 3 ([facility]) 10/17/2022 Priority: Not Prioritized Dementia, vascular ([facility]) 10/17/2022 Priority: Not Prioritized Atelectasis, right 07/05/2022 Priority: Not Prioritized Contrast-induced nephropathy 07/05/2022 Priority: Not Prioritized 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 Priority: Not Prioritized Leukocytosis, unspecified type 06/28/2022 Priority: Not Prioritized Sinus tachycardia 06/28/2022 Priority: Not Prioritized Hypoxia 06/28/2022 Priority: Not Prioritized Acute respiratory failure with hypoxia ([facility]) 06/28/2022 Priority: Not Prioritized Aspiration pneumonitis ([facility]) 06/13/2022 Priority: Not Prioritized Aspiration into airway 06/12/2022 Priority: Not Prioritized Protein-calorie malnutrition, unspecified severity ([facility]) 06/03/2022 Priority: Not Prioritized Abdominal pain, generalized 05/30/2022 Priority: Not Prioritized Lethargy 05/30/2022 Priority: Not Prioritized History of stroke 05/30/2022 Priority: Not Prioritized Acute on chronic respiratory failure with hypoxia ([facility]) 05/30/2022 Priority: Not Prioritized Bacteremia 03/11/2022 Priority: Not Prioritized Ulcer of left foot ([facility]) 03/11/2022 Priority: Not Prioritized PAD (peripheral artery disease) ([facility]) 03/11/2022 Priority: Not Prioritized Severe protein-calorie malnutrition ([facility]) 03/11/2022 Priority: Not Prioritized Status epilepticus ([facility]) 12/30/2021 Priority: Not Prioritized Seizure disorder ([facility]) 12/30/2021 Priority: Not Prioritized Seizures ([facility]) 08/13/2020 Priority: Not Prioritized Therapeutic procedure Priority: Not Prioritized Cerebrovascular accident ([facility]) 06/13/2019 Priority: Not Prioritized Insomnia 06/13/2019 Priority: Not Prioritized Low back pain 06/13/2019 Priority: Not Prioritized Osteoporosis 11/22/2018 Priority: Not Prioritized Essential (primary) hypertension 07/24/2015 Priority: Not Prioritized Hyperlipidemia 04/14/2015 Priority: Not Prioritized Last Assessment & Plan: Continue home meds and monitor 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 Priority: Not Prioritized The plan of care consists of: Continue vent support Weaning Pressure control Cardiology recs appreciated-on metoprolol. ENT following patient for nasal bleed. On Vancomycin and zosyn. * Tamie Dhaliwal RN - 11/29/2022 10:18 PM CDT Problem: Fall Risk Goal: Fall [...] engage in desired activity. Outcome: Progressing * Leonie Turner MD - 11/29/2022 4:19 PM CDT MICU Progress Note 11/29/2022 4:21 PM Patient: Mojgan Tabor (:1960) Room: [facility] Admit Date: 11/24/2022. Hospital Day: 4 Reason for Admission: intraoperative ventricular tachycardia Hospital Course: Mojgan Tabor with PMH of chronic resp failure with new hypoxia, stroke, dementia, trach and PEG tube,and seizures was admitted to the ICU following an ENT procedure complicated by intraoperative ventricular tachycardia. The surgery was aborted due to Vtach run/. The patient spontaneously converted to sinus rhythm in the OR after 2-3 minutes. His course has been complicated by sinus tachycardia to the 140's and uncontrolled hypertension, which has improved with IV esmolol. Switched from esmolol to metoprolol tartrate per cards recc. Course complicated by presumed ventilator-associated pneumonia, currently treated with Zosyn and vancomycin. Interval History: Patient remains tachycardic and was febrile this AM. He is minimally responsive. EKG today revealedsinus tachycardia. Per nursing, he had minimal bleeding. Palliative care was consulted. Objective: Vitals: 11/29/22 1200 11/29/22 1300 11/29/22 1500 11/29/22 1600 BP: 132/64 106/89 140/87 133/83 Pulse: (!) 110 (!) 112 95 101 Resp: 12 12 12 12 Temp: (!) 100.2 ??F (37.9 ??C) 98.7 ??F (37.1 ??C) SpO2: 99% 98% 98% 98% Weight: Height: @IODETAIL@ S RR: 12 bpm PEEP/CPAP: 5 cm H20 Mean Airway Pressure (cm H2O): 11 cm H2O O2 %: 25 % Physical Exam General - NAD, afebrile, non cachectic HEENT - NC/AT, EOMI, clear conjunctivae, throat without erythema or exudate, moist mucous membranes Neck - Supple, no LAD, no JVD Chest - CTAB no crackles or wheezes bilaterally CV - RRR no murmurs, radial and DP pulses 2/4, good capillary refill Abdomen - Soft, NT/ND, +BS, no organomegaly Musculoskeletal - Moves all four extremities Extremities - No c/c/e Skin - No rashes, lesions or jaundice Neurologic - A&O x 3, no focal neurological deficits Psych - Appropriate mood and affect Labs: CBC: Recent Labs Component Name 11/29/2231111/28/2243311/27/22317 WBC 12.9* 14.6* 15.4* HGB 9.1* 10.7* 12.4 HCT 27.3* 32.3* 37.2 BMP: Recent Labs Component Name 11/29/2231111/28/2243311/27/22317 NA 136 136 137 CL 108* 108* 104 CO2 23 21* 22 BUN 11 12 8 CREATININE 0.47* 0.50* 0.45* CALCIUM 9.0 9.5 9.7 PHOS 2.7* 3.4 3.0 Hepatic: Recent Labs Component Name 11/29/2231111/28/2243311/27/2231711/26/22 03111/25/22 0335 11/04/22 0633 10/09/22 1204 ALT - - - - 24 27 10 AST - - - - 24 25 15 TBILI - - - - 0.2 0.2 0.1* PROT - - - - 6.9 7.7 6.9 ALB 2.2* 2.4* 2.6* - 2.6* 2.9* 3.0* ALKPHOS - - - - 85 124 83 - = values in this interval not displayed. Coagulation: Recent Labs Component Name 08/28/22 2224 06/27/22 2215 05/11/22 1309 PT 15.2* 12.8 13.5 INR 1.2 1.0 1.0 Cardiac Markers: Recent Labs Component Name 07/11/22 0040 07/01/22 1634 06/28/22 0141 06/27/22 2215 05/30/22 1750 03/08/22 1455 12/31/21 0412 CKTOTAL 49 42 - - - - 77 TROPONINI - - <0.010 <0.010 <0.010 - - - = values in this interval not displayed. ABGs: No results for input(s): PHART, PO2ART, VAS0IDT, BEART in the last 46536 hours. Micro: cultures revealed pseudomonas aeruginosa Imaging: Imaging reviewed. Venous duplex revealed no DVT. Assessment: V-tach (CMS/HCC) (POA: No) History of CVA (cerebrovascular accident) (POA: Yes) Seizure disorder (CMS/HCC) (POA: Yes) Acute on chronic respiratory failure with hypoxia (CMS/HCC) (POA: Yes) Protein-calorie malnutrition, unspecified severity (CMS/HCC) (POA: Yes) Sinus tachycardia (POA: Unknown) Dementia, vascular (CMS/HCC) (POA: Yes) Nasal polyp (POA: Yes) Hemoptysis (POA: Yes) Acute blood loss anemia (POA: Yes) PEG (percutaneous endoscopic gastrostomy) status (CMS/HCC) (POA: Yes) Tracheostomy in place (CMS/HCC) (POA: Yes) Uncontrolled hypertension (POA: No) PLAN: Neurological: #History of CVA c/b Left Sided Deficits #Dementia #Seizure Disorder - on SEAMAN atorvastatin 40mg, Depakote 500mg q6h, Clobazam 20mg BID, Lacosamide 200mg BID, Midazolam 5mg nasal spray PRN - holding SEAMAN ASA due to recent bleeding #Sedation - propofol discontinued on 11/27 due to QTc prolongation > sedation with IV fentanyl Cardiovascular: #Intraoperative Ventricular Tachycardia - noted during ENT procedure on 11/26 with spontaneous conversion to sinus after 2-3 minutes - cardiology consult recommended no acute intervention - troponin within normal limits > continue telemetry > echo ordered; f/u results > initiate amiodarone bolus with gtt if Vtach reoccurs > maintain K>4, Mg>2 ?? #Sinus Tachycardia #Hypertension #Premature Ventricular Contractions - heart rate and blood pressure consistently elevated overnight into this morning - patient has HTN at baseline; was not on any SEAMAN meds - IV nicardipine and fluid bolus administered without improvement in symptoms - CT PE negative, TSH wnl - cardiology consult: consider workup for pheochromocytoma, titrate BP with gtts and transition with oral antihypertensives - tachycardia and HTN improved with IV esmolol > continue Fentanyl 50mcg q1h PRN to limit pain-related BP elevation > Sqitch esmolol to metop tartrate per cards > f/u 24h urine metanephrines to assess for pheochromocytoma > f/u TTE ? #QTc prolongation - baseline 455 - prolonged to 526 on most recent EKG > continue to monitor > avoid QT-prolonging medications > patient's sedative switched from propofol to fentanyl on 11/26 ?? #PVD s/p L AKA - on SEAMAN atorvastatin 40mg - holding SEAMAN ASA due to bleeding Pulmonary: #Acute on Chronic Hypoxic Respiratory Failure s/p tracheostomy #Antrochoanal Polyp c/b bleeding - tracheostomy placed Jun 2022 during admission for aspiration pneumonia - surgical removal of bleeding polyp aborted due to Vtach run - epistat in place to control bleeding; posterior balloon deflated this AM - intubated with mechanical ventilation - CXR: tracheostomy tube stable in position > continue SEAMAN guaifenesin, levalbuterol > hold SEAMAN scopolamine patch until ENT recommends resuming > SpO2 goal of 90% GI: #Dysphagia s/p PEG placement #Severe Protein Calorie Malnutrition - tube feeds via PEG for nutrition at home > diet NPO for any additional surgical interventions, reinitiate diet as soon as possible Renal: #BPH - on SEAMAN tamsulosin 0.4mg Endocrine: BGM goal 140-180 mg/dL ID: #Concern for Ventilator-Associated Pneumonia - patient developed low-grade fever on 11/28/22 > initiated vancomycin + Zosyn for presumed ventilator-associated pneumonia and recent history of MRSA infection > sputum culture with gram stain Heme/Onc: #Tracheal Bleeding - 2/2 antrochoanal polyp - Hgb dropped 12.5->10.7, previously stable > afternoon CBC > continue holding aspirin and chemical DVT ppx pending afternoon CBC > continue to trend CBC's daily > Keep tracheostomy cuff inflated to prevent aspiration of blood > ENT managing epistat; posterior balloon deflated, anterior balloon partially deflated > Afrin PRN > ENT following FEN: -Monitor electrolytes QD, Replace K<4, Mg<2, Phos<3 Lines: Type: ETT, Jensen, PEG tube, PIV * Prophylaxis: Aspiration precautions w/ HOB elevation by 30 degrees GI prophyalxis w/ famotidine DVT prophyalxis w/ SCDs only due to recent bleed Diet: Tube feeds via PEG Activity: Bedrest Disposition: ICU Monitoring Code Status: FULL Leonie Turner MD Associated attestation - Ilir Mckenzie MD - 11/29/2022 10:16 PM CDT I spent 32 minutes in full attendance with this critically-ill patient. Time spent was exclusive ofseparately billed procedures, treating other patients, and teaching time. I have reviewed and agreewith resident documentation. Critical care was necessary to treat or prevent life-threatening deterioration of the following: V-tach (CMS/HCC) (POA: No) History of CVA (cerebrovascular accident) (POA: Yes) Seizure disorder (CMS/HCC) (POA: Yes) Acute on chronic respiratory failure with hypoxia (CMS/HCC) (POA: Yes) Protein-calorie malnutrition, unspecified severity (CMS/HCC) (POA: Yes) Sinus tachycardia (POA: Unknown) Dementia, vascular (CMS/HCC) (POA: Yes) Nasal polyp (POA: Yes) Hemoptysis (POA: Yes) Acute blood loss anemia (POA: Yes) PEG (percutaneous endoscopic gastrostomy) status (CMS/HCC) (POA: Yes) Tracheostomy in place (CMS/HCC) (POA: Yes) Uncontrolled hypertension (POA: No) Patient Active Problem List Diagnosis Date Noted COVID-19 04/14/2021 Priority: High History of CVA (cerebrovascular accident) 12/11/2020 Priority: High Cognitive communication deficit 08/25/2020 Priority: High Dysphagia, oropharyngeal phase 08/25/2020 Priority: High Epilepsy, unspecified, not intractable, without status epilepticus ([facility]) 05/25/2019 Priority: High Hemiplegia and 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- dominant side ([facility]) 05/25/2019 Priority: High Alzheimer's disease with early onset ([facility]) 05/17/2019 Priority: High Paroxysmal tachycardia, unspecified ([facility]) 05/16/2019 Priority: High Alcohol abuse, uncomplicated 08/13/2015 Priority: High Benign neoplasm of prostate 06/26/2015 Priority: High Other specified rheumatoid arthritis, unspecified site ([facility]) 06/26/2015 Priority: High Uncontrolled hypertension 11/28/2022 Priority: Not Prioritized Uncontrolled. V-tach ([facility]) 11/27/2022 Priority: Not Prioritized Nasal polyp 11/25/2022 Priority: Not Prioritized Hemoptysis 11/25/2022 Priority: Not Prioritized Acute blood loss anemia 11/25/2022 Priority: Not Prioritized PEG (percutaneous endoscopic gastrostomy) status ([facility]) 11/25/2022 Priority: Not Prioritized Tracheostomy in place ([facility]) 11/25/2022 Priority: Not Prioritized Pressure ulcer of right heel, stage 3 ([facility] [place]) 10/17/2022 Priority: Not Prioritized Dementia, vascular ([facility] [place]) 10/17/2022 Priority: Not Prioritized Atelectasis, right 07/05/2022 Priority: Not Prioritized Contrast-induced nephropathy 07/05/2022 Priority: Not Prioritized 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 Priority: Not Prioritized Leukocytosis, unspecified type 06/28/2022 Priority: Not Prioritized Sinus tachycardia 06/28/2022 Priority: Not Prioritized Hypoxia 06/28/2022 Priority: Not Prioritized Acute respiratory failure with hypoxia ([facility] [place]) 06/28/2022 Priority: Not Prioritized Aspiration pneumonitis ([facility] [place]) 06/13/2022 Priority: Not Prioritized Aspiration into airway 06/12/2022 Priority: Not Prioritized Protein-calorie malnutrition, unspecified severity ([facility] [place]) 06/03/2022 Priority: Not Prioritized Abdominal pain, generalized 05/30/2022 Priority: Not Prioritized Lethargy 05/30/2022 Priority: Not Prioritized History of stroke 05/30/2022 Priority: Not Prioritized Acute on chronic respiratory failure with hypoxia ([facility] 05/30/2022 Priority: Not Prioritized Bacteremia 03/11/2022 Priority: Not Prioritized Ulcer of left foot ([facility] [place]) 03/11/2022 Priority: Not Prioritized PAD (peripheral artery disease) ([facility] [place]) 03/11/2022 Priority: Not Prioritized Severe protein-calorie malnutrition ([facility] [place]) 03/11/2022 Priority: Not Prioritized Status epilepticus ([facility] [place]) 12/30/2021 Priority: Not Prioritized Seizure disorder ([facility] [place]) 12/30/2021 Priority: Not Prioritized Seizures ([facility] [place]) 08/13/2020 Priority: Not Prioritized Therapeutic procedure Priority: Not Prioritized Cerebrovascular accident ([facility] [place]) 06/13/2019 Priority: Not Prioritized Insomnia 06/13/2019 Priority: Not Prioritized Low back pain 06/13/2019 Priority: Not Prioritized Osteoporosis 11/22/2018 Priority: Not Prioritized Essential (primary) hypertension 07/24/2015 Priority: Not Prioritized Hyperlipidemia 04/14/2015 Priority: Not Prioritized Last Assessment & Plan: Continue home meds and monitor 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 Priority: Not Prioritized The plan of care consists of: Continue vent support Wean Pressure control Cardiology recs appreciated-on metoprolol. ENT following patient for nasal bleed. Palliative care consult * Caio Oliveira - 11/29/2022 3:18 PM CDT New patient to caseload/floor Chart reviewed Patient is not medically ready to transition to next level of care Post acute recommendation: [facility] Insurance authorization is not required for post acute care needs Payer/Plan Subscriber Name Rel Member # Group # MEDICAID - [place] -* MOJGAN TABOR Kandi Vega [id number] [address] [address] Continued Care and Services - Admitted Since 11/24/2022 Destination Service Provider Request Status Selected Services Address Phone Fax Patient Preferred [facility] [place] (formerly [facility] and [facility])Pending - Request Sent N/A [id number] [facility] [id number] -- Current Capacity last updated by Yu Nguyễn on 04/21/2022 [id number] See Nurse Case Management note(s) for medical updates and progress toward discharge/disposition plans Thank you, CLARITA Rico, PRACHI [facility] [phone] 11/29/2022 3:18 PM * Suresh Jaquez RN - 11/29/2022 2:30 PM CDT Care Coordination Progress Note Anticipated level of care at discharge: [facility] - Medicaid Discharge Plan: return to SNF Patient is new to my caseload. READMISSION RISK SCORE is 28 at 2:30 PM 11/29/2022. Anticipated Discharge Date: 12/01/22 Patient/Family provided with list of resources? Unknown Preferred Provider / High Quality Network List given?: Unknown Reason for provider choice: Unknown Family Support (Name and Phone): Extended Emergency Contact Information Primary Emergency Contact: BabakAdriane Mobile Relation: Sister Farm Operator needed? No Secondary Emergency Contact: [facility] Relation: Brother Transportation at Discharge: Ambulance Equipment at Home: Equipment at Home: Facility Equipment List DME patient requires but does not have: DME Provider: Medication affordability concerns: No Follow Up Appointment: Transportation to MD: Ambulance Auth Number (if required): [place]: DME: Medications: Transportation: Name: Suresh Jaquez RN Phone: [phone] * Ryanne Harden MD - 11/29/2022 10:49 AM CDT ATTENDING PHYSICIAN NOTE ?? Patient seen and examined with the resident. I confirm the history, exam, assessment and plan. In addition I note: ?? Chief complaint: NSVT. ?? History: ??history of R occipital stroke with L sided residual deficits, HTN, Seizure d/o, Alzheimers, PVD s/p R BKA, Dysphasia s/p PEG tube placement (02/2022) and recurrent aspirations now s/p transcervical Zenker's diverticulotomy and tracheostomy (07/15/22) that presented to there ER on 11/25/22 found to have blood from tracheostomy tube on suction noted at LTAC (suction was performed in the setting of congestion noted by nurses). He had a CT done with R trace bronchial debris. There was complete opacification of the R maxillary sinus. ??ENT evaluated the patient and he underwent laryngoscopy and nasal endoscopy with right bronchial occlusion with purulence and clot which was suctioned with improvement and left upper bronchus with continued purulence. No kate bleeding in oral cavity noted. There was a R antrochoanal polyp that occluded the R nasal cavity and R half of the choana. Bleeding was noted, afrin was applied with some resulotion but not completely resolved. Given tenuous re spiratory status, ENT decided to take patikent to OR on 11/26 for removal of polyp which was completed. Procedure was complicated by Vtach on table. There was no loss of pulse, Vtach resolved and patient reverted back to NSR spontaneously. A code was called at the time. The operative note suggeststhat the entirety of the rhythm was less than 2 minutes with weak pulses noted. Case was aborted there after. Cardiology consultation requested. ? Patient has since been tachycardiac and hypertensive, currently on an esmolol and nicardipine gtt. Primary team is consulting cardiology to evaluate the NSVT rhythm and to help manage underlying HTN. No CP or SOB. ?? ECG with AMI. ?? CXR with hyperexpansion and left > right pleural effusions. Mild decompensated heart failure. ECHO 08/2022. ??Good LV function and satisfactory valve function., ?? 11/29/22 Left AKA. No new Sx. Stable and ECHO with apical hypokinesis to akinesis and LVH with normal global function.No cath. Conservative medical care best. Follow status, weight, vitals and edema, Titrate meds prn. Keep K > 4, Mg > 2, SaO2 > 92% and Hgb > 9. Chronic oxygen. Right lower lobe with atelectasis and purulence. Ongoing trach and vent support. Chronic vent and sedation. Poor QOL. Check goals of care and reassess code status. Plans to follow. Check with pulmonary for cause of RLL issues. May be factor in arrhythmias with surgery. Follow status, weight, vitals and edema, Titrate meds prn. Keep K > 4, Mg > 2, SaO2 > 92% and Hgb > 9. Supine and chronic consolidation with infection of RLL. High WBC and low level fever. Suspect chronic aspiration cause. . Poor prognosis. PEG very high risk for more problems. POA notified and with discuss with team. Patient told her he wanted to be resuscitated at all cost. Aware of recurrent aspiration. ? Social History ?Socioeconomic History ?Marital status: Single ?Tobacco Use ?Smoking status: Former ?Packs/day: 1.00 ?Years: 15.00 ?Pack years: 15 ?Types: Cigarettes ?Smokeless tobacco: Never ?Vaping Use ?Vaping Use: Never used ?Substance and Sexual Activity ?Alcohol use: No ?Comment: last drink 2015 ?Drug use: No ?Comment: occasional ?Sexual activity: Not Currently ? family history is not on file. ?-- Clonazepam -- Psychiatric ?-- ??hallucinations ?? Past Medical History: No date: CVA (cerebral vascular accident) (CMS/HCC) No date: HTN (hypertension) No date: Seizure (CMS/HCC) ?? A full 12 point review of systems was performed and was otherwise negative besides what was mentioned in the HPI. ?? Exam: BP 123/74 Pulse (!) 113 Temp (!) 100.4 ??F (38 ??C) (Axillary) Resp 14 Ht 5' 10 Wt154 lb SpO2 98% ?? NAD. Sedated and vent HEENT: neck supple. Atraumatic. Cor: RRR. JVD. S4 no murmur. ??No S3 Resp: no breath sounds on right lower lung anterior and posterior. Rales right > left. GI: soft. NT. Ext: no edema Left AKA. ?? Medications were reviewed; please see the resident's note for complete list. ?? Data Review: pertinent lab and cardiac data reviewed ?? Lab Results: Recent Labs Component Name 11/29/22 0312 11/28/22 0434 11/27/22 0318 WBC 12.9* 14.6* 15.4* HGB 9.1* 10.7* 12.4 HCT 27.3* 32.3* 37.2 PLTCOUNT 202 244 260 Recent Labs Component Name 11/29/22 0312 11/28/22 0434 11/27/22 0318 POTASSIUM 4.1 4.1 4.2 CO2 23 21* 22 BUN 11 12 8 CREATININE 0.47* 0.50* 0.45* GLUCOSE 125* 129* 115 CALCIUM 9.0 9.5 9.7 Recent Labs Component Name 08/28/22 2224 06/27/22 2215 05/11/22 1309 INR 1.2 1.0 1.0 PT 15.2* 12.8 13.5 Recent Labs Component Name 11/25/22 0335 11/04/22 0633 10/09/22 1204 ALKPHOS 85 124 83 ALT 24 27 10 AST 24 25 15 Recent Labs Component Name 11/27/22 1542 07/04/22 0145 06/12/22 0337 TSH 1.790 1.955 2.755 No results for input(s): CKMB, TROPONIN, MYOGLOBIN in the last 36566 hours. Recent Labs Component Name 11/27/22 0328 11/26/22 2041 11/26/22 1840 IUA1OGX 25.5 26.1 25.3 FIO2 25.0 30.0 30.0 Recent Labs Component Name 07/07/22 0345 04/11/15 0622 CHOL - 196 HDL - 81 TRIG 102 63 LDLCALC - 102* ?? ECG reviewed: STACH, SMI, AU, long QT. ?? CXR reviewed: CM and effusions. ? Assessment/Plan: NSVT. ?? History: ??history of R occipital stroke with L sided residual deficits, HTN, Seizure d/o, Alzheimers, PVD s/p R BKA, Dysphasia s/p PEG tube placement (02/2022) and recurrent aspirations now s/p transcervical Zenker's diverticulotomy and tracheostomy (07/15/22) that presented to there ER on 11/25/22 found to have blood from tracheostomy tube on suction noted at LTAC (suction was performed in the setting of congestion noted by nurses). He had a CT done with R trace bronchial debris. There was complete opacification of the R maxillary sinus. ??ENT evaluated the patient and he underwent laryngoscopy and nasal endoscopy with right bronchial occlusion with purulence and clot which was suctioned with improvement and left upper bronchus with continued purulence. No kate bleeding in oral cavity noted. There was a R antrochoanal polyp that occluded the R nasal cavity and R half of the choana. Bleeding was noted, afrin was applied with some resulotion but not completely resolved. Given tenuous re spiratory status, ENT decided to take patikent to OR on 11/26 for removal of polyp which was completed. Procedure was complicated by Vtach on table. There was no loss of pulse, Vtach resolved and patient reverted back to NSR spontaneously. A code was called at the time. The operative note suggeststhat the entirety of the rhythm was less than 2 minutes with weak pulses noted. Case was aborted there after. Cardiology consultation requested. ? Patient has since been tachycardiac and hypertensive, currently on an esmolol and nicardipine gtt. Primary team is consulting cardiology to evaluate the NSVT rhythm and to help manage underlying HTN. No CP or SOB. ?? ECG with AMI. ?? CXR with hyperexpansion and left > right pleural effusions. Mild decompensated heart failure. ECHO 08/2022. ??Good LV function and satisfactory valve function., ?? Repeat ECHO pending. ?? ECG with old AK. 11/29/22 Left AKA. No new Sx. Stable and ECHO with apical hypokinesis to akinesis and LVH with normal global function.No cath. Conservative medical care best. Follow status, weight, vitals and edema, Titrate meds prn. Keep K > 4, Mg > 2, SaO2 > 92% and Hgb > 9. Chronic oxygen. Right lower lobe with atelectasis and purulence. Ongoing trach and vent support. Chronic vent and sedation. Poor QOL. Check goals of care and reassess code status. Plans to follow. Check with pulmonary for cause of RLL issues. May be factor in arrhythmias with surgery. Follow status, weight, vitals and edema, Titrate meds prn. Keep K > 4, Mg > 2, SaO2 > 92% and Hgb > 9. Supine and chronic consolidation with infection of RLL. High WBC and low level fever. Suspect chronic aspiration cause. . Poor prognosis. PEG very high risk for more problems. POA notified and with discuss with team. Patient told her he wanted to be resuscitated at all cost. Aware of recurrent aspiration. High WBC and low level fever. Suspect chronic aspiration cause. Poor prognosis. PEG very high risk for more problems. DNR/DNI not possible. ? Please see the resident's note for further details. ? Ryanne Harden MD, F.A.C.C. deli manager ?? 11/27/22 ??9:06 PM * Jose Enrique Johnson MD - 11/29/2022 8:[address] [facility] Consultation : 1960 Admission: 11/24/2022 LOS: 4 Requesting physician: MICU 1 team Reason for consult: HTN and VT management Assessment and plan: #Uncontrolled HTN vs. HTN urgency #Sinus tachycardia #Prolonged QTc (could this have caused polymorphic VT?) #Nasal bleed #CVA with residual L sided weakness #Seizure disorder #PVD s/p L AKA #?Right lung aspiration PNA Recommendations: -TTE done 11/29 with findings consistent with prior septal infarct when correlated with EKG - Recommend starting ASA 81 mg QD and to continue statin given prior infarct -Off esmolol GTT, recommend starting metoprolol tartate 25 BID -Very important to have goals of care discussion given patient is s/p trach and peg. LLE amputee, very poor quality of life Cardiology consults to sign off These recommendations are not final until cosigned by attending physician. Subjective: Chief complaint: ENT surgical evaluation aborted History of present illness: Mrs. Tabor is a 62 yo M with a history of R occipital stroke with L sided residual deficits, HTN, Seizure d/o, Alzheimers, PVD s/p R BKA, Dysphasia s/p PEG tube placement (02/2022) and recurrent aspirations now s/p transcervical Zenker's diverticulotomy and tracheostomy (07/15/22) that presented to there ER on 11/25/22 found to have blood from tracheostomy tube on suction noted at LTAC (suction wasperformed in the setting of congestion noted by nurses). He had a CT done with R trace bronchial debris. There was complete opacification of the R maxillary sinus. ENT evaluated the patient and he underwent laryngoscopy and nasal endoscopy with right bronchial occlusion with purulence and clot which was suctioned with improvement and left upper bronchus with continued purulence. No kate bleedingin oral cavity noted. There was a R antrochoanal polyp that occluded the R nasal cavity and R half of the choana. Bleeding was noted, afrin was applied with some resulotion but not completely resolved. Given tenuous respiratory status, ENT decided to take patikent to OR on 11/26 for removal of polypwhich was completed. Procedure was complicated by Vtach on table. There was no loss of pulse, Vtach resolved and patient reverted back to NSR spontaneously. A code was called at the time. The operative note suggests that the entirety of the rhythm was less than 2 minutes with weak pulses noted. Case was aborted there after. Patient has since been tachycardiac and hypertensive. Stopped esmolol and nicardipine GTT. Primary team is consulting cardiology to evaluate the NSVT rhythm and to help manage underlying HTN. BP and HR rising since being off esmolol and nicardipine GTT. ROS limited given sedated on fentanyl gtt. Past Medical History: Diagnosis Date ??? CVA [...] No family history on file. Social History Tobacco Use ??? Smoking status: Former Packs/day: 1.00 Years: 15.00 Pack years: 15.00 Types: Cigarettes ??? Smokeless tobacco: Never Vaping Use ??? Vaping Use: Never used Substance Use Topics ??? Alcohol use: No Comment: last drink 2015 ??? Drug use: No Comment: occasional Allergies Allergen Reactions ??? Clonazepam Psychiatric hallucinations Prior to Admission medications Taking? Last Dose Medication Sig acetaminophen (Tylenol) 500 MG tablet 1 (one) tablet by Enteral [...] tablet by Enteral Tube route once daily cetirizine (ZyrTEC) 10 MG tablet 1 (one) tablet by Enteral Tube route once daily cloBAZam (Onfi) 20 MG tablet 1 (one) tablet by Enteral Tube route 2 times daily cloBAZam (Onfi) 20 MG tablet 1 (one) tablet by Enteral Tube route 2 times daily divalproex sprinkle (Depakote Sprinkle) 125 MG capsule 4 (four) capsules by Enteral Tube route every 6 hours divalproex sprinkle (Depakote Sprinkle) 125 MG capsule 4 (four) capsules by Enteral Tube route every 6 hours docusate sodium (Colace) 150 MG/15ML solution Take 15 mL by mouth once daily as needed for Constipation enoxaparin (Lovenox) 40 MG/0.4ML injection Inject 40 (forty) mg subcutaneously once daily fluticasone propionate (Flonase) 50 MCG/ACT nasal spray [place] 1 (one) spray into each nostril once daily folic acid (Folvite) 1 MG tablet 1 (one) tablet by Enteral Tube route once daily guaiFENesin (Robitussin) 100 MG/5ML solution 10 mL by Enteral Tube route every 6 hours lacosamide (Vimpat) 200 MG tablet 1 (one) tablet by Enteral Tube route 2 times daily lacosamide (Vimpat) 200 MG tablet 1 (one) tablet by Enteral Tube route 2 times daily levalbuterol (Xopenex) 1.25 MG/3ML nebulizer solution Inhale 3 mL by mouth every 8 hours as needed for Shortness of Breath or Wheezing levETIRAcetam (Keppra) 1000 MG tablet 2 (two) tablets by Enteral Tube route 2 times daily levETIRAcetam (Keppra) 1000 MG tablet 2 (two) tablets by Enteral Tube route 2 times daily midazolam (Nayzilam) 5 MG/0.1ML nasal spray [place] 0.1 mL into the nose as needed for Seizures midazolam (Nayzilam) 5 MG/0.1ML nasal spray [place] 0.1 mL into the nose as needed for Seizures scopolamine (Transderm-Scop) 1 MG patch Apply 1 (one) patch to skin every 3 days senna-docusate (Senokot-S) 8.6-50 MG tablet 1 (one) tablet by Enteral Tube route 2 times daily tamsulosin (Flomax) 0.4 MG capsule Take 1 (one) capsule by mouth once daily At the same time every day after a meal. Please make sure it is via enteral tube. thiamine (Vitamin B-1) 100 MG tablet 1 (one) tablet by Enteral Tube route once daily Objective: Patient Vitals for the past 24 hrs: BP Temp Temp src Pulse Resp SpO2 Height Weight 11/29/22 1000 123/74 -- -- (!) 113 14 98 % -- -- 11/29/22 0945 -- -- -- (!) 116 -- 99 % -- -- 11/29/22 0900 133/74 -- -- (!) 113 12 99 % -- -- 11/29/22 0800 118/80 (!) 100.4 ??F (38 ??C) Axillary (!) 123 12 97 % -- -- 11/29/22 0700 109/75 -- -- (!) 125 12 98 % -- -- 11/29/22 0600 122/89 -- -- (!) 122 15 90 % 1.778 m (5' 10 ) 69.9 kg (154 lb) 11/29/22 0559 -- -- -- (!) 123 15 92 % -- -- 11/29/22 0500 140/79 -- -- (!) 114 14 96 % -- -- 11/29/22 0419 -- -- -- (!) 112 -- 96 % -- -- 11/29/22 0400 121/72 98.2 ??F (36.8 ??C) Axillary (!) 110 12 97 % -- -- 11/29/22 0330 -- -- -- (!) 114 12 97 % -- -- 11/29/22 0300 (!) 126/108 -- -- (!) 123 12 94 % -- -- 11/29/22 0230 126/98 -- -- (!) 121 12 98 % -- -- 11/29/22 0200 119/80 -- -- (!) 130 (!) 3 98 % -- -- 11/29/22 0130 96/66 -- -- (!) 130 12 97 % -- -- 11/29/22 0100 107/72 -- -- (!) 133 12 98 % -- -- 11/29/22 0030 101/77 -- -- (!) 125 12 96 % -- -- 11/29/22 0003 123/81 -- -- (!) 113 12 97 % -- -- 11/29/22 0000 123/81 98.9 ??F (37.2 ??C) Axillary (!) 113 12 97 % -- -- 11/28/22 2330 120/77 -- -- (!) 114 12 97 % -- -- 11/28/22 2300 119/72 -- -- (!) 112 12 97 % -- -- 11/28/22 2230 105/69 -- -- (!) 112 12 97 % -- -- 11/28/22 2200 99/61 -- -- 96 12 99 % -- -- 11/28/22 2130 90/60 -- -- 91 12 99 % -- -- 11/28/22 2100 89/57 -- -- 92 12 100 % -- -- 11/28/22 2030 119/69 -- -- 99 (!) 7 100 % -- -- 11/28/222008 -- -- -- 98 13 99 % -- -- 11/28/22 2000 110/73 98.9 ??F (37.2 ??C) Axillary 98 (!) 6 98 % -- -- 11/28/22 1930 110/63 -- -- 97 13 98 % -- -- 11/28/22 1900 104/58 -- -- 98 12 99 % -- -- 11/28/22 1800 119/72 -- -- 98 12 98 % -- -- 11/28/22 1700 96/71 -- -- 105 12 99 % -- -- 11/28/22 1629 -- -- -- 100 12 99 % -- -- 11/28/22 1600 102/66 98.2 ??F (36.8 ??C) Axillary 98 12 100 % -- -- 11/28/22 1530 86/68 -- -- 100 (!) 0 95 % -- -- 11/28/22 1500 90/78 -- -- 107 10 97 % -- -- 11/28/22 1430 90/71 -- -- 104 12 97 % -- -- 11/28/22 1400 108/76 -- -- 104 (!) 5 98 % -- -- 11/28/22 1330 93/62 -- -- (!) 116 12 94 % -- -- 11/28/22 1300 93/67 -- -- (!) 124 12 93 % -- -- 11/28/22 1230 93/73 -- -- (!) 115 12 95 % -- -- 11/28/22 1200 118/80 99.2 ??F (37.3 ??C) Axillary 108 12 99 % -- -- 11/28/22 1151 -- -- -- 108 12 98 % -- -- General: No apparent distress, appears sedated, responds to touch ENTM: Trach in place Neck: Supple, full range of motion Lungs: ventilated breath sounds Heart: tachycardic, no murmurs or gallops Abdomen: Soft, non-tender, non-distended, normal bowel sounds Extremities: No cyanosis, clubbing, or edema Skin: Warm, dry, well perfused Neuro: sedated, alert to self I have reviewed all labs, imaging, and diagnostics. Cardiology High Risk Variables Respiratory Failure - Acute respiratory failure with hypoxia Were these present on admission? Yes Associated attestation - Ryanne Harden MD - 11/29/2022 9:43 PM CDT See my note. Ryanne Harden MD deli manager. [facility] Chair in Cardiology Pager [phone] * Akbar Jung MD - 11/29/2022 6:53 AM CDT Otolaryngology - Head and Neck Surgery Progress Note Today's Date: 11/29/2022 Subjective HPI: Mojgan Tabor is a 62 year old male with a hx of R. Occipital stroke (2014), head injury, seizures, Alzheimer's, Right BKA, refractory epilepsy, dysphasia w/PEG tube placement on 03/25/22 previously with recurrent aspirations now s/p transcervical Zenker's diverticulectomy, tracheostomy 07/15/22 (). Patient sent to ED from facility 2/2 tracheal and oral bleeding that began 11/24. Workup at outside ED also concerning for pneumonia with likely complete R bronchial occlusion with CXR. Upon consultation here, bronched at bedside by ENT. Right main bronchus with improved ventilation after suctioning/lavage (large amounts of purulence removed). Endoscopy at that time also revealed a bleeding right antrochoanal polyp that completely occludes right nasal cavity and the right half of the choana. Patient now s/p bilateral nasal endoscopy, right maxillary antrostomy, and removal of polyp 11/26/22(). Procedure complicated by VTACH intraop and further bleeding from right nare in PACU. Epistat and surgiflo ultimately placed in right nare (anterior balloon: 16 ml saline, posterior balloon 8 mlsaline). Interval History: No acute events overnight. Patient still intermittently tachycardic Some oozing blood noted from right nare Objective Temp (30hrs) Max:99.6 ??F (37.6 ??C) Temp: [98.2 ??F (36.8 ??C)-99.6 ??F (37.6 ??C)] 98.2 ??F (36.8 ??C) Pulse: [91-133] 122 Resp: [0-15] 15 BP: (86-140)/(57-108) 122/89 O2 %: [25 %] 25 % Intake/Output Summary (Last 24 hours) at 11/29/2022 0704 Last data filed at 11/29/2022 0601 Gross per 24 hour Intake 3020.95 ml Output 1430 ml Net 1590.95 ml DIET NPO Except: NO EXCEPTIONS DIET TUBE FEEDING CONTINUOUS Physical Exam: Constitutional: thin adult male, no acute distress. Neuro:cranial nerves III-XII grossly intact CV/Pulm: tachycardic with minimal blood-tinged mucoid tracheal secretions. On ventilator. Eyes: PERRL, EOMI Face/Skin: normal appearance, no lesions/masses Ears: Normal external auditory canals bilaterally. Nose: R Epistat in place with some blood oozing from the nare. Mouth and oropharynx: symmetric tongue mobility, no lesions/masses/ulcers, no blood noted in oropharynx. Neck: supple, no lymphadenopathy, no masses, 6.0 TTS bivona, no active bleeding from trach with minimal bloody secretions. MusculoSkeletal: moves all extremities well Labs: CBC Recent Labs Component Name 11/29/22 0312 11/28/22 0434 11/27/22317 WBC 12.9* 14.6* 15.4* HGB 9.1* 10.7* 12.4 HCT 27.3* 32.3* 37.2 PLTCOUNT 202 244 260 BMP Recent Labs Component Name 11/29/22 0312 11/28/22 0434 11/27/22317 POTASSIUM 4.1 4.1 4.2 CO2 23 21* 22 BUN 11 12 8 CREATININE 0.47* 0.50* 0.45* GLUCOSE 125* 129* 115 CALCIUM 9.0 9.5 9.7 PHOS 2.7* 3.4 3.0 LFTs Recent Labs Component Name 11/25/22 0335 11/04/22 0633 10/09/22 1204 AST 24 25 15 ALT 24 27 10 ALKPHOS 85 124 83 Coags Recent Labs Component Name 08/28/22 2224 06/27/22 2215 05/11/22 1309 PT 15.2* 12.8 13.5 INR 1.2 1.0 1.0 ABG Recent Labs Component Name 11/27/22 0328 11/26/22 2041 11/26/22 1840 02/25/21 1212 04/11/15 0622 PH 7.47* 7.48* 7.48* - 7.38 PO2 84 123* 95 - 134* PCO2 35 35 34* - 36 HCO3 - - - - 20.9* BE 2.1* 2.8* 2.1* - -3.6* - = values in this interval not displayed. Recent Imaging: CT CHEST W CONTRAST Result Date: 11/25/2022 Impression: 1.Trace amount of debris in the right main bronchus, improved from previous examinationwith almost complete resolution of atelectasis in the right middle lobe with decreased right lower lobe atelectasis and decreased mediastinal shift. 2.Minimal debris is noted in the trachea proximal to the tracheostomy tube. > Dictated by Usman Arce MD, (resident medical officer). I, Ashwin Read MD have personally reviewed and interpreted this examination/study. > Interpreting Provider: Ashwin Read MD on 11/25/2022 11:[address] SINUS WWO CONTRAST Result Date: 11/25/2022 IMPRESSION: 1.Complete opacification of the right maxillary [...] the right eustachian tube, potentially by the abovementioned nasopharyngeal component. Findings are compatible with right antrochoanal polyp versus malignant neoplasm given the interval change and hemoptysis. Recommend ENT consultation with direct biliary dilatation and possible biopsy. 2.Scattered paranasal sinus mucosal thickening. These findingswere discussed in detail with the patient's care provider, Dr. Kinsey by Dr. Yañez via telephoneat 9:22 AM on 11/25/2022 with readback comprehension and verification. > Dictated by Christian Yañez DO (resident medical officer). I, Jason Sanchez MD have personally reviewed and interpreted this exam ination/study. > Interpreting Provider: Jason Sanchez MD on 11/25/2022 10:53 AM Recent Micro: Recent Results (from the past 124 hour(s)) MRSA DNA PCR Collection Time: 11/25/22 10:22 AM Specimen: Nasal; Microbiology Result Value Ref Range MRSA DNA by PCR Detected (Abnormal) Not detected CULTURE SPUTUM+GRAM STAIN Collection Time: 11/28/22 2:27 PM Specimen: Sputum; Microbiology Result Value Ref Range Gram Stain <10 per low power field Squamous epithelial cells Gram Stain >= 25 per low power field Polymorphonuclear cells Gram Stain Heavy Gram-negative bacilli Gram Stain Heavy Gram-positive bacilli Pathology: Specimens (From admission, onward) None Assessment and Plan Mojgan Tabor is a 62 year old male with medical complexity, including tracheostomy dependence and known antrochoanal polyp, admitted for concern for pneumonia and bleeding from antrochoanal polyp. Right main bronchus with improved ventilation after suctioning/lavage (large amounts of purulence remov ed). Patient now s/p bilateral nasal endoscopy, right maxillary antrostomy, and removal of polyp 11/26/22 (). Procedure complicated by VTACH intraop and further bleeding from right nare in PACU. Epistat and surgiflo ultimately placed in right nare. PLAN: - Took down posterior epistat 11/27, anterior balloon deflated by half 11/28, waiting to deflate rest of anterior balloon given drop in hgb - Keep tracheostomy cuff inflated to prevent aspiration of blood. - Afrin PRN - Appreciate cardiology rec's regarding perioperative VTACH and ongoing tachycardia Please call ENT with any further bleeding, questions or concerns. Akbar Jung MD Otolaryngology and Head and Neck Surgery Resident 11/29/22 * Gonzalo Herman RN - 11/29/2022 3:30 AM CDT Problem: Fall Risk Goal: Fall risk and fall related injury risk are minimized (interventions related to the fall risk can be found in the flowsheet documentation) Outcome: Progressing Problem: Skin Integrity Goal: Skin integrity is maintained or improved Outcome: Progressing Problem: Nutrient: Malnutrition Goal: Enteral/parenteral nutrition prescription will be consistent with estimated needs Outcome: Progressing Problem: Pain/Discomfort Goal: Patient exhibits reduced pain/discomfort as evidenced by pain scores Outcome: Progressing Goal: Patient uses pharmacological and non-pharmacological pain management strategies. Outcome: Progressing Goal: Patient verbalizes acceptable level of pain relief and ability to engage in desired activity. Outcome: Progressing * Gonzalo Herman RN - 11/29/2022 3:30 AM CDT PIV x 4 attempted X 2 RNS for site rotations unsuccessful. * Meka Barber PharmD - 11/29/2022 12:03 AM CDT ACTIVE CONSULTS TO PHARMACY/DISEASE STATE MONITORING Pharmacy [...] patient populations. REF: https://www.idsociety.org/practice-guideline/vancomycin/ ASSESSMENT/PLAN Indication: suspected Pneumonia with Goal Level: AUC 400-600 ID consulted/following: No Assessment ?? Renal assessment: considered stable at this time as patient has Estimated Creatinine Clearance: 153.4 mL/min (A) (by C-G formula based on SCr of 0.5 mg/dL (L)). ?? Historical dosing data that influences current dosing decisions: No ?? History of MRSA colonization or positive cultures: Yes Plan ??? Regimen: o Loading dose: 1750 mg o Maintenance dose: 1250 mg, o Dosing interval: Q12 hr o This regimen calculates to provide estimated AUC of 472 mg-h/L ??? Monitoring o Post initial loading dose, will order a vancomycin peak (1st) level on 11/30 at 0615 and trough (2nd) level prior to the start of the maintenance dose on 11/30 at 1400 and adjust regimen if indicated. o Continue to monitor patient???s renal function and cultures as needed. Meka Barber, PharmD 11/29/2022 12:03 AM [facility] Vancomycin Guideline SUBJECTIVE/OBJECTIVE Mojgan Tabor is a 62 year old male. The primary encounter diagnosis was Pneumonia of right lung dueto infectious organism, unspecified part of lung. Diagnoses of Hemoptysis, Nasal polyp, Tracheostomy in place (CMS/HCC), Polyp of right nasal cavity, Status epilepticus (CMS/HCC), Paroxysmal tachycardia, unspecified (CMS/HCC), Sinus tachycardia, Ventricular tachycardia (CMS/HCC), Hypoxia, and Essential (primary) hypertension were also pertinent to this visit. Height: 5' 10 (177.8 cm) Wt 69.9 kg (154 lb 1.6 oz) Body mass index is 22.11 kg/m??. Recent Labs Component Name 11/28/22 0434 11/27/22 0318 11/26/22 1840 11/26/22 0310 CREATININE 0.50* 0.45* 0.41* 0.46* BUN 12 8 10 11 WBC 14.6* 15.4* 17.4* 12.7* 12.7* Dialysis Orders (72h ago, onward) None Radiocontrast within 72 hours The 3 most recent administrations since 11/26/2022 are shown below each listed medication. Other Order Route Dose Action Date iopamidol (Isovue 370) 76 % contrast Intravenous 75 mL $ Given - Contrast 11/27/2022 Vancomycin Administrations from [facility] (last 72 hours) Date/Time Action Medication Dose Rate 11/28/22 1509 Rate Change vancomycin (Vancocin) 1,750 mg in 535 mL IVPB 305.71 mL/hr 11/28/22 1509 $ New Bag/Syringe vancomycin (Vancocin) 1,750 mg in 535 mL IVPB 1,750 mg 305.71 mL/hr Recent Labs Component Name 09/10/22 0906 09/02/22 0848 08/31/22 0923 07/04/22 0145 07/03/22 0405 07/02/22 0531 VANCORNDM - - - 22.0 26.1 32.1 [facility] 14.1 20.7* 11.5 - - - * Josef Wick, ALFRED - 11/28/2022 6:13 PM CDT Problem: Fall Risk Goal: Fall risk and fall related injury risk are minimized (interventions related to the fall risk can be found in the flowsheet documentation) Outcome: Not Progressing Problem: Skin Integrity Goal: Skin integrity is maintained or improved Outcome: Not Progressing Problem: Nutrient: Malnutrition Goal: Enteral/parenteral nutrition prescription will be consistent with estimated needs Outcome: Not Progressing Problem: Pain/Discomfort Goal: Patient exhibits reduced pain/discomfort as evidenced by pain scores Outcome: Not Progressing Goal: Patient uses pharmacological and non-pharmacological pain management strategies. Outcome: Not Progressing Goal: Patient verbalizes acceptable level of pain relief and ability to engage in desired activity. Outcome: Not Progressing * Ward Wyatt MD - 11/28/2022 1:[address] [facility] Consultation : 1960 Admission: 11/24/2022 LOS: 3 Requesting physician: MICU 1 team Reason for consult: HTN and VT management Assessment and plan: #Uncontrolled HTN vs. HTN urgency #Sinus tachycardia #Prolonged QTc (could this have caused polymorphic VT?) #Nasal bleed #CVA with residual L sided weakness #Seizure disorder #PVD s/p L AKA #?Right lung aspiration PNA Recommendations: -Pending TTE -Tele does not show any more VT episodes, very few PVCs -Did have episode of SVT -Continue tele monitoring -Considering transitioning esmolol drip to po metoprolol tartarate -Very important to have goals of care discussion given patient is s/p trach and peg. LLE amputee, very poor quality of life We will continue to follow These recommendations are not final until cosigned by attending physician. Subjective: Chief complaint: ENT surgical evaluation aborted History of present illness: Mrs. Tabor is a 62 yo M with a history of R occipital stroke with L sided residual deficits, HTN, Seizure d/o, Alzheimers, PVD s/p R BKA, Dysphasia s/p PEG tube placement (02/2022) and recurrent aspirations now s/p transcervical Zenker's diverticulotomy and tracheostomy (07/15/22) that presented to there ER on 11/25/22 found to have blood from tracheostomy tube on suction noted at LTAC (suction wasperformed in the setting of congestion noted by nurses). He had a CT done with R trace bronchial debris. There was complete opacification of the R maxillary sinus. ENT evaluated the patient and he underwent laryngoscopy and nasal endoscopy with right bronchial occlusion with purulence and clot which was suctioned with improvement and left upper bronchus with continued purulence. No kate bleedingin oral cavity noted. There was a R antrochoanal polyp that occluded the R nasal cavity and R half of the choana. Bleeding was noted, afrin was applied with some resulotion but not completely resolved. Given tenuous respiratory status, ENT decided to take patikent to OR on 11/26 for removal of polypwhich was completed. Procedure was complicated by Vtach on table. There was no loss of pulse, Vtach resolved and patient reverted back to NSR spontaneously. A code was called at the time. The operative note suggests that the entirety of the rhythm was less than 2 minutes with weak pulses noted. Case was aborted there after. Patient has since been tachycardiac and hypertensive, currently on an esmolol and nicardipine gtt. Primary team is consulting cardiology to evaluate the NSVT rhythm and to help manage underlying HTN. ROS limited given sedated on fentanyl gtt. Past Medical History: Diagnosis Date ??? CVA (cerebral vascular accident) (CMS/HCC) ??? HTN (hypertension) ??? Seizure (CMS/HCC) Past Surgical History: Procedure Laterality Date ??? ENDOSCOPY, UPPER N/A 03/25/2022 N/A; ESOPHAGOGASTRODUODENOSCOPY (EGD) DIAGNOSTIC with PEG Placement ??? ENT SURGERY N/A 07/15/2022 N/A; TRANSCERVICAL ZENKERS DIVERTICULECTOMY, OPEN TRACHEOSTOMY ??? Leg Amputation, Below Knee Left 03/15/2022 Left; LEFT BKA POSS AKA No family history on file. Social History Tobacco Use ??? Smoking status: Former Packs/day: 1.00 Years: 15.00 Pack years: 15.00 Types: Cigarettes ??? Smokeless tobacco: Never Vaping Use ??? Vaping Use: Never used Substance Use Topics ??? Alcohol use: No Comment: last drink 2015 ??? Drug use: No Comment: occasional Allergies Allergen Reactions ??? Clonazepam Psychiatric hallucinations Prior to Admission medications Taking? Last Dose Medication Sig acetaminophen (Tylenol) 500 MG tablet 1 (one) tablet by Enteral [...] tablet by Enteral Tube route once daily cetirizine (ZyrTEC) 10 MG tablet 1 (one) tablet by Enteral Tube route once daily cloBAZam (Onfi) 20 MG tablet 1 (one) tablet by Enteral Tube route 2 times daily cloBAZam (Onfi) 20 MG tablet 1 (one) tablet by Enteral Tube route 2 times daily divalproex sprinkle (Depakote Sprinkle) 125 MG capsule 4 (four) capsules by Enteral Tube route every 6 hours divalproex sprinkle (Depakote Sprinkle) 125 MG capsule 4 (four) capsules by Enteral Tube route every 6 hours docusate sodium (Colace) 150 MG/15ML solution Take 15 mL by mouth once daily as needed for Constipation enoxaparin (Lovenox) 40 MG/0.4ML injection Inject 40 (forty) mg subcutaneously once daily fluticasone propionate (Flonase) 50 MCG/ACT nasal spray [place] 1 (one) spray into each nostril once daily folic acid (Folvite) 1 MG tablet 1 (one) tablet by Enteral Tube route once daily guaiFENesin (Robitussin) 100 MG/5ML solution 10 mL by Enteral Tube route every 6 hours lacosamide (Vimpat) 200 MG tablet 1 (one) tablet by Enteral Tube route 2 times daily lacosamide (Vimpat) 200 MG tablet 1 (one) tablet by Enteral Tube route 2 times daily levalbuterol (Xopenex) 1.25 MG/3ML nebulizer solution Inhale 3 mL by mouth every 8 hours as needed for Shortness of Breath or Wheezing levETIRAcetam (Keppra) 1000 MG tablet 2 (two) tablets by Enteral Tube route 2 times daily levETIRAcetam (Keppra) 1000 MG tablet 2 (two) tablets by Enteral Tube route 2 times daily midazolam (Nayzilam) 5 MG/0.1ML nasal spray [place] 0.1 mL into the nose as needed for Seizures midazolam (Nayzilam) 5 MG/0.1ML nasal spray [place] 0.1 mL into the nose as needed for Seizures scopolamine (Transderm-Scop) 1 MG patch Apply 1 (one) patch to skin every 3 days senna-docusate (Senokot-S) 8.6-50 MG tablet 1 (one) tablet by Enteral Tube route 2 times daily tamsulosin (Flomax) 0.4 MG capsule Take 1 (one) capsule by mouth once daily At the same time every day after a meal. Please make sure it is via enteral tube. thiamine (Vitamin B-1) 100 MG tablet 1 (one) tablet by Enteral Tube route once daily Objective: Patient Vitals for the past 24 hrs: BP Temp Temp src Pulse Resp SpO2 11/28/22 1151 -- -- -- 108 12 98 % 11/28/22 0800 -- 99.6 ??F (37.6 ??C) Axillary -- -- -- 11/28/22 0630 115/82 -- -- (!) 112 12 98 % 11/28/22 0615 113/79 -- -- (!) 112 (!) 3 99 % 11/28/22 0600 120/83 -- -- (!) 112 12 98 % 11/28/22 0545 127/88 -- -- 105 12 99 % 11/28/22 0531 -- -- -- 101 12 99 % 11/28/22 0530 107/79 -- -- 104 12 99 % 11/28/22 0515 115/86 -- -- 105 12 99 % 11/28/22 0500 112/84 -- -- 105 12 99 % 11/28/22 0445 121/79 -- -- 106 (!) 0 98 % 11/28/22 0430 123/83 -- -- 107 12 98 % 11/28/22 0415 131/93 -- -- 105 (!) 3 98 % 11/28/22 0400 131/85 99.1 ??F (37.3 ??C) Axillary 105 12 98 % 11/28/22 0345 131/88 -- -- 105 12 98 % 11/28/22 0330 127/88 -- -- 106 12 98 % 11/28/22 0315 126/94 -- -- 107 12 97 % 11/28/22 0300 129/93 -- -- 107 12 96 % 11/28/22 0245 137/84 -- -- 107 13 96 % 11/28/22 0230 130/90 -- -- 106 12 97 % 11/28/22 0215 127/88 -- -- 105 12 99 % 11/28/22 0200 124/86 -- -- 106 12 98 % 11/28/22 0145 122/90 -- -- 108 12 99 % 11/28/22 0130 109/94 -- -- (!) 110 18 98 % 11/28/22 0115 124/81 -- -- 107 13 96 % 11/28/22 0100 121/88 -- -- 106 14 97 % 11/28/22 0045 113/78 -- -- 107 12 96 % 11/28/22 0030 117/83 -- -- 107 12 98 % 11/28/22 0015 116/84 -- -- (!) 111 13 95 % 11/28/22 0000 109/80 98.9 ??F (37.2 ??C) Axillary 109 12 98 % 11/27/22 2345 114/90 -- -- (!) 112 12 99 % 11/27/22 2330 117/94 -- -- (!) 110 12 99 % 11/27/22 2315 128/90 -- -- 109 12 99 % 11/27/22 2300 126/86 -- -- (!) 110 12 99 % 11/27/22 2245 121/91 -- -- (!) 111 12 99 % 11/27/22 2230 135/90 -- -- 109 12 99 % 11/27/22 2215 122/98 -- -- 108 12 99 % 11/27/220 114/86 -- -- 108 12 99 % 11/27/22 214 123/86 -- -- 109 12 99 % 11/27/22 2130 130/90 -- -- 109 12 99 % 11/27/222114 134/98 -- -- 107 12 99 % 11/27/222099 129/92 -- -- 107 12 99 % 11/27/222044 (!) 132/100 -- -- 107 12 99 % 11/27/222029 124/99 -- -- 108 12 99 % 11/27/222014 121/88 -- -- 109 12 99 % 11/27/221999 125/88 98.9 ??F (37.2 ??C) Axillary 108 12 98 % 11/27/22 1945 133/92 -- -- 108 12 99 % 11/27/22 1930 125/97 -- -- 108 12 99 % 11/27/22 1915 134/90 -- -- 108 12 99 % 11/27/22 1900 128/99 -- -- 108 12 99 % 11/27/22 1800 (!) 129/101 -- -- (!) 112 -- 98 % 11/27/22 1700 144/97 -- -- (!) 113 12 100 % 11/27/22 1616 -- -- -- (!) 111 12 99 % 11/27/22 1600 (!) 149/101 99.5 ??F (37.5 ??C) Axillary (!) 111 12 100 % 11/27/22 1500 146/92 -- -- (!) 115 (!) 6 99 % 11/27/22 1432 -- -- -- (!) 141 -- 99 % General: No apparent distress, appears sedated, responds to touch ENTM: Trach in place Neck: Supple, full range of motion Lungs: ventilated breath sounds Heart: tachycardic, S1 normal, S2 physiologically split, no murmurs or gallops Abdomen: Soft, non-tender, non-distended, normal bowel sounds Extremities: No cyanosis, clubbing, or edema Skin: Warm, dry, well perfused Neuro: sedated, alert to self I have reviewed all labs, imaging, and diagnostics. Cardiology High Risk Variables Respiratory Failure - Acute respiratory failure with hypoxia Were these present on admission? Yes Associated attestation - Ryanne Harden MD - 11/28/2022 3:25 PM CDT See my note. Ryanne Harden MD deli manager. [facility] Chair in Cardiology Pager [phone] * Ryanne Harden MD - 11/28/2022 10:20 AM CDT ATTENDING PHYSICIAN NOTE ?? Patient seen and examined with the resident. I confirm the history, exam, assessment and plan. In addition I note: ?? Chief complaint: NSVT. ?? History: ??history of R occipital stroke with L sided residual deficits, HTN, Seizure d/o, Alzheimers, PVD s/p R BKA, Dysphasia s/p PEG tube placement (02/2022) and recurrent aspirations now s/p transcervical Zenker's diverticulotomy and tracheostomy (07/15/22) that presented to there ER on 11/25/22 found to have blood from tracheostomy tube on suction noted at LTAC (suction was performed in the setting of congestion noted by nurses). He had a CT done with R trace bronchial debris. There was complete opacification of the R maxillary sinus. ??ENT evaluated the patient and he underwent laryngoscopy and nasal endoscopy with right bronchial occlusion with purulence and clot which was suctioned with improvement and left upper bronchus with continued purulence. No kate bleeding in oral cavity noted. There was a R antrochoanal polyp that occluded the R nasal cavity and R half of the choana. Bleeding was noted, afrin was applied with some resulotion but not completely resolved. Given tenuous re spiratory status, ENT decided to take patikent to OR on 11/26 for removal of polyp which was completed. Procedure was complicated by Vtach on table. There was no loss of pulse, Vtach resolved and patient reverted back to NSR spontaneously. A code was called at the time. The operative note suggeststhat the entirety of the rhythm was less than 2 minutes with weak pulses noted. Case was aborted there after. Cardiology consultation requested. ? Patient has since been tachycardiac and hypertensive, currently on an esmolol and nicardipine gtt. Primary team is consulting cardiology to evaluate the NSVT rhythm and to help manage underlying HTN. No CP or SOB. ?? ECG with AMI. ?? CXR with hyperexpansion and left > right pleural effusions. Mild decompensated heart failure. ECHO 08/2022. ??Good LV function and satisfactory valve function., ?? 11/28/22 Left AKA. No new Sx. Stable and repeat ECHO pending. Follow status, weight, vitals and edema, Titrate meds prn. Keep K > 4, Mg > 2, SaO2 > 92% and Hgb > 9. Chronic oxygen. Right lower lobe with atelectasis and purulence. Ongoing trach and vent support. Chronic vent and sedation. Poor QOL. Check goals of care and reassess code status. Plans to follow. Check with pulmonary for cause of RLL issues. May be factor in arrhythmias with surgery. Follow status, weight, vitals and edema, Titrate meds prn. Keep K > 4, Mg > 2, SaO2 > 92% and Hgb > 9. Supine and chronic consolidation with infection of RLL. High WBC and low level fever. Suspect chronic aspiration cause. . Poor prognosis. PEG very high risk for more problems. ? Social History ?Socioeconomic History ?Marital status: Single ?Tobacco Use ?Smoking status: Former ?Packs/day: 1.00 ?Years: 15.00 ?Pack years: 15 ?Types: Cigarettes ?Smokeless tobacco: Never ?Vaping Use ?Vaping Use: Never used ?Substance and Sexual Activity ?Alcohol use: No ?Comment: last drink 2015 ?Drug use: No ?Comment: occasional ?Sexual activity: Not Currently ? family history is not on file. ?-- Clonazepam -- Psychiatric ?-- ??hallucinations ?? Past Medical History: No date: CVA (cerebral vascular accident) (CMS/HCC) No date: HTN (hypertension) No date: Seizure (CMS/HCC) ?? A full 12 point review of systems was performed and was otherwise negative besides what was mentioned in the HPI. ?? Exam: BP 115/82 Pulse 108 Temp 99.6 ??F (37.6 ??C) (Axillary) Resp 12 Ht 5' 10 Wt 154 lb1.6 oz SpO2 98% ?? NAD. Sedated and vent HEENT: neck supple. Atraumatic. Cor: RRR. JVD. S4 no murmur. ??No S3 Resp: no breath sounds on right lower lung anterior and posterior. Rales right > left. GI: soft. NT. Ext: no edema Left AKA. ?? Medications were reviewed; please see the resident's note for complete list. ?? Data Review: pertinent lab and cardiac data reviewed ?? Lab Results: Recent Labs Component Name 11/28/22 0434 11/27/228 11/26/22 1840 WBC 14.6* 15.4* 17.4* HGB 10.7* 12.4 12.5 HCT 32.3* 37.2 37.2 PLTCOUNT 244 260 244 Recent Labs Component Name 11/28/22 0434 11/27/22 0318 11/26/22 1840 POTASSIUM 4.1 4.2 4.2 CO2 21* 22 19* BUN 12 8 10 CREATININE 0.50* 0.45* 0.41* GLUCOSE 129* 115 120* CALCIUM 9.5 9.7 9.8 Recent Labs Component Name 08/28/22 2224 06/27/22 2215 05/11/22 1309 INR 1.2 1.0 1.0 PT 15.2* 12.8 13.5 Recent Labs Component Name 11/25/22 0335 11/04/22 0633 10/09/22 1204 ALKPHOS 85 124 83 ALT 24 27 10 AST 24 25 15 Recent Labs Component Name 11/27/22 1542 07/04/22 0145 06/12/22 0337 TSH 1.790 1.955 2.755 No results for input(s): CKMB, TROPONIN, MYOGLOBIN in the last 12266 hours. Recent Labs Component Name 11/27/22 0328 11/26/22 2041 11/26/22 1840 SNM5BSB 25.5 26.1 25.3 FIO2 25.0 30.0 30.0 Recent Labs Component Name 07/07/22 0345 04/11/15 0622 CHOL - 196 HDL - 81 TRIG 102 63 LDLCALC - 102* ?? ECG reviewed: STACH, SMI, AU, long QT. ?? CXR reviewed: CM and effusions. ? Assessment/Plan: NSVT. ?? History: ??history of R occipital stroke with L sided residual deficits, HTN, Seizure d/o, Alzheimers, PVD s/p R BKA, Dysphasia s/p PEG tube placement (02/2022) and recurrent aspirations now s/p transcervical Zenker's diverticulotomy and tracheostomy (07/15/22) that presented to there ER on 11/25/22 found to have blood from tracheostomy tube on suction noted at LTAC (suction was performed in the setting of congestion noted by nurses). He had a CT done with R trace bronchial debris. There was complete opacification of the R maxillary sinus. ??ENT evaluated the patient and he underwent laryngoscopy and nasal endoscopy with right bronchial occlusion with purulence and clot which was suctioned with improvement and left upper bronchus with continued purulence. No kate bleeding in oral cavity noted. There was a R antrochoanal polyp that occluded the R nasal cavity and R half of the choana. Bleeding was noted, afrin was applied with some resulotion but not completely resolved. Given tenuous re spiratory status, ENT decided to take patikent to OR on 11/26 for removal of polyp which was completed. Procedure was complicated by Vtach on table. There was no loss of pulse, Vtach resolved and patient reverted back to NSR spontaneously. A code was called at the time. The operative note suggeststhat the entirety of the rhythm was less than 2 minutes with weak pulses noted. Case was aborted there after. Cardiology consultation requested. ? Patient has since been tachycardiac and hypertensive, currently on an esmolol and nicardipine gtt. Primary team is consulting cardiology to evaluate the NSVT rhythm and to help manage underlying HTN. No CP or SOB. ?? ECG with AMI. ?? CXR with hyperexpansion and left > right pleural effusions. Mild decompensated heart failure. ECHO 08/2022. ??Good LV function and satisfactory valve function., ?? Repeat ECHO pending. ?? ECG with old AK. 11/28/22 Left AKA. No new Sx. Stable and repeat ECHO pending. Follow status, weight, vitals and edema, Titrate meds prn. Keep K > 4, Mg > 2, SaO2 > 92% and Hgb > 9. Chronic oxygen. Right lower lobe with atelectasis and purulence. Ongoing trach and vent support. Chronic vent and sedation. Poor QOL. Check goals of care and reassess code status. Plans to follow. Check with pulmonary for cause of RLL issues. May be factor in arrhythmias with surgery. Follow status, weight, vitals and edema, Titrate meds prn. Keep K > 4, Mg > 2, SaO2 > 92% and Hgb > 9. Supine and chronic consolidation with infection of RLL. High WBC and low level fever. Suspect chronic aspiration cause. . Poor prognosis. PEG very high risk for more problems. ? Please see the resident's note for further details. ? Ryanne Harden MD, F.A.C.C. deli manager ?? 11/27/22 ??9:06 PM * Araceli Argueta MD - 11/28/2022 9:30 AM CDT MICU Progress Note 11/28/2022 9:30 AM Patient: Mojgan Tabor (:1960) Room: [facility] Admit Date: 11/24/2022. Hospital Day: 3 CC: intraoperative ventricular tachycardia Hospital Course: Mojgan Tabor was admitted to the ICU following an ENT procedure complicated by intraoperative ventricular tachycardia. The patient spontaneously converted to sinus rhythm in the OR after 2-3 minutes. His course has been complicated by sinus tachycardia to the 140's and uncontrolled hypertension, which has improved with IV esmolol. Course complicated by presumed ventilator-associated pneumonia, currently treated with Zosyn and vancomycin. Interval History: The patient's vitals have improved over the past 24 hours. He appears more awake and inconsistentlyopens eyes to voice and touch. Objective: Vitals: 11/28/22 0600 11/28/22 0615 11/28/22 0630 11/28/22 0800 BP: 120/83 113/79 115/82 Pulse: (!) 112 (!) 112 (!) 112 Resp: 12 (!) 3 12 Temp: 99.6 ??F (37.6 ??C) SpO2: 98% 99% 98% Weight: Height: S RR: 12 bpm PEEP/CPAP: 5 cm H20 Mean Airway Pressure (cm H2O): 9.9 cm H2O O2 %: 25 % Physical Exam General - NAD, afebrile, non cachectic HEENT - NC/AT, clear conjunctivae, nasal balloons in R nostril Neck - Supple, no LAD Chest - course breath sounds bilaterally CV - tachycardia with regular rhythm, no murmurs or gallops, radial and DP pulses 2/4, good capillary refill Abdomen - Soft, mildly distended, no organomegaly, PEG tube in place Musculoskeletal - No conscious movement appreciated Extremities - No c/c/e; L AKA Skin - No rashes, lesions or jaundice Neurologic - sedated, spontaneous eye opening to voice/touch Psych - unable to assess Labs: CBC: Recent Labs Component Name 11/28/2243311/27/2231711/26/22 1840 WBC 14.6* 15.4* 17.4* HGB 10.7* 12.4 12.5 HCT 32.3* 37.2 37.2 BMP: Recent Labs Component Name 11/28/2243311/27/2231711/26/22 1840 NA 136 137 139 CL 108* 104 109* CO2 21* 22 19* BUN 12 8 10 CREATININE 0.50* 0.45* 0.41* CALCIUM 9.5 9.7 9.8 PHOS 3.4 3.0 3.5 Hepatic: Recent Labs Component Name 11/28/22 0434 11/27/22 0318 11/26/22 0310 11/25/22 0335 11/04/22 0633 10/09/22 1204 ALT - - - 24 27 10 AST - - - 24 25 15 TBILI - - - 0.2 0.2 0.1* PROT - - - 6.9 7.7 6.9 ALB 2.4* 2.6* 2.6* 2.6* 2.9* 3.0* ALKPHOS - - - 85 124 83 Coagulation: Recent Labs Component Name 08/28/22 2224 06/27/22 2215 05/11/22 1309 PT 15.2* 12.8 13.5 INR 1.2 1.0 1.0 Cardiac Markers: Recent Labs Component Name 07/11/22 0040 07/01/22 1634 06/28/22 0141 06/27/22 2215 05/30/22 1750 03/08/22 1455 12/31/21 0412 CKTOTAL 49 42 - - - - 77 TROPONINI - - <0.010 <0.010 <0.010 - - - = values in this interval not displayed. ABGs: No results for input(s): PHART, PO2ART, [id number], BEART in the last 58281 hours. Imaging: Imaging reviewed. Assessment: Mr. Mojgan Tabor is a 62-year-old male with a past medical history significant for CVA with left-sided deficits, dementia s/p tracheostomy and PEG, and seizures who was transferred to the MICU following an intraoperative run of ventricular tachycardia with spontaneous conversion to sinus followed by sinus tachycardia and hypertension without clear etiology. His vitals have improved withesmolol. V-tach (CMS/HCC) (POA: No) History of CVA (cerebrovascular accident) (POA: Yes) Seizure disorder (CMS/HCC) (POA: Yes) Acute on chronic respiratory failure with hypoxia (CMS/HCC) (POA: Yes) Protein-calorie malnutrition, unspecified severity (CMS/HCC) (POA: Yes) Sinus tachycardia (POA: Unknown) Dementia, vascular (CMS/HCC) (POA: Yes) Nasal polyp (POA: Yes) Hemoptysis (POA: Yes) Acute blood loss anemia (POA: Yes) PEG (percutaneous endoscopic gastrostomy) status (CMS/HCC) (POA: Yes) Tracheostomy in place (CMS/[facility]) (POA: Yes) PLAN: Neurological: #History of CVA c/b Left Sided Deficits #Dementia #Seizure Disorder - on SEAMAN atorvastatin 40mg, Depakote 500mg q6h, Clobazam 20mg BID, Lacosamide 200mg BID, Midazolam 5mg nasal spray PRN - holding SEAMAN ASA due to recent bleeding #Sedation - propofol discontinued on 11/27 due to QTc prolongation > sedation with IV fentanyl Cardiovascular: #Intraoperative Ventricular Tachycardia - noted during ENT procedure on 11/26 with spontaneous conversion to sinus after 2-3 minutes - cardiology consult recommended no acute intervention - troponin within normal limits > continue telemetry > echo ordered; f/u results > initiate amiodarone bolus with gtt if Vtach reoccurs > maintain K>4, Mg>2 #Sinus Tachycardia #Hypertension #Premature Ventricular Contractions - heart rate and blood pressure consistently elevated overnight into this morning - patient has HTN at baseline; was not on any SEAMAN meds - IV nicardipine and fluid bolus administered without improvement in symptoms - CT PE negative, TSH wnl - cardiology consult: consider workup for pheochromocytoma, titrate BP with gtts and transition with oral antihypertensives - tachycardia and HTN improved with IV esmolol > continue Fentanyl 50mcg q1h PRN to limit pain-related BP elevation > continue IV esmolol > 24h urine metanephrines to assess for pheochromocytoma > f/u TTE #QTc prolongation - baseline 455 - prolonged to 526 on most recent EKG > continue to monitor > avoid QT-prolonging medications > patient's sedative switched from propofol to fentanyl on 11/26 #PVD s/p L AKA - on SEAMAN atorvastatin 40mg - holding SEAMAN ASA due to bleeding Pulmonary: #Acute on Chronic Hypoxic Respiratory Failure s/p tracheostomy #Antrochoanal Polyp c/b bleeding - tracheostomy placed Jun 2022 during admission for aspiration pneumonia - surgical removal of bleeding polyp aborted due to Vtach run - epistat in place to control bleeding; posterior balloon deflated this AM - intubated with mechanical ventilation - CXR: tracheostomy tube stable in position > continue SEAMAN guaifenesin, levalbuterol > hold SEAMAN scopolamine patch until ENT recommends resuming > SpO2 goal of 90% GI: #Dysphagia s/p PEG placement #Severe Protein Calorie Malnutrition - tube feeds via PEG for nutrition at home > diet NPO for any additional surgical interventions, reinitiate diet as soon as possible Renal: #BPH - on SEAMAN tamsulosin 0.4mg Endocrine: BGM goal 140-180 mg/dL ID: #Concern for Ventilator-Associated Pneumonia - patient developed low-grade fever on 11/28/22 > initiated vancomycin + Zosyn for presumed ventilator-associated pneumonia and recent history of MRSA infection > sputum culture with gram stain Heme/Onc: #Tracheal Bleeding - 07/01 antrochoanal polyp - Hgb dropped 12.5->10.7, previously stable > afternoon CBC > continue holding aspirin and chemical DVT ppx pending afternoon CBC > continue to trend CBC's daily > Keep tracheostomy cuff inflated to prevent aspiration of blood > ENT managing epistat; posterior balloon deflated, anterior balloon partially deflated > Afrin PRN > ENT following FEN: -Monitor electrolytes QD, Replace K<4, Mg<2, Phos<3 Lines: Type: ETT, Jensen, PEG tube, PIV Prophylaxis: Aspiration precautions w/ HOB elevation by 30 degrees GI prophyalxis w/ famotidine DVT prophyalxis w/ SCDs only due to recent bleed Diet: Tube feeds via PEG Activity: Bedrest Disposition: ICU Monitoring Code Status: FULL Araceli Argueta MD Internal Medicine PGY-1 Associated attestation - Stephen Witt MD - 11/28/2022 7:24 PM CDT 11/28/2022 Attending Physician Supervisory Note I personally saw, evaluated and examined the patient and agree with the assessment and plan of the housestaff doctor except noted in my notes. Stephen Witt MD * Akbar Jung MD - 11/28/2022 8:14 AM CDT Otolaryngology - Head and Neck Surgery Progress Note Today's Date: 11/28/2022 Subjective HPI: Mojgan Tabor is a 62 year old male with a hx of R. Occipital stroke (2015), head injury, seizures, Alzheimer's, Right BKA, refractory epilepsy, dysphasia w/PEG tube placement on 03/25/22 previously with recurrent aspirations now s/p transcervical Zenker's diverticulectomy, tracheostomy 07/15/22 (). Patient sent to ED from facility 07/01 tracheal and oral bleeding that began 11/24. Workup at outside ED also concerning for pneumonia with likely complete R bronchial occlusion with CXR. Upon consultation here, bronched at bedside by ENT. Right main bronchus with improved ventilation after suctioning/lavage (large amounts of purulence removed). Endoscopy at that time also revealed a bleeding right antrochoanal polyp that completely occludes right nasal cavity and the right half of the choana. Patient now s/p bilateral nasal endoscopy, right maxillary antrostomy, and removal of polyp 11/26/22(). Procedure complicated by VTACH intraop and further bleeding from right nare in PACU. Epistat and surgiflo ultimately placed in right nare (anterior balloon: 16 ml saline, posterior balloon 8 mlsaline). Interval History: No acute events overnight. Patient still intermittently tachycardic, however improved since switching to esmolol No significant bleeding noted. Objective Temp (30hrs) Max:99.6 ??F (37.6 ??C) Temp: [98.9 ??F (37.2 ??C)-99.6 ??F (37.6 ??C)] 99.6 ??F (37.6 ??C) Pulse: [101-154] 112 Resp: [0-18] 12 BP: (107-162)/(78-116) 115/82 O2 %: [25 %] 25 % Intake/Output Summary (Last 24 hours) at 11/28/2022 0820 Last data filed at 11/28/2022 0800 Gross per 24 hour Intake 2394.4 ml Output 1425 ml Net 969.4 ml DIET NPO Except: NO EXCEPTIONS DIET TUBE FEEDING CONTINUOUS Physical Exam: Constitutional: thin adult male, no acute distress. Neuro:cranial nerves III-XII grossly intact CV/Pulm: tachycardic with minimal blood-tinged mucoid tracheal secretions. On ventilator. Eyes: PERRL, EOMI Face/Skin: normal appearance, no lesions/masses Ears: Normal external auditory canals bilaterally. Nose: Epistat in place, no active bleeding. Mouth and oropharynx: symmetric tongue mobility, no lesions/masses/ulcers, no active bleeding. Neck: supple, no lymphadenopathy, no masses, 6.0 TTS bivona, no active bleeding with minimal bloodysecretions. MusculoSkeletal: moves all extremities well Labs: CBC Recent Labs Component Name 11/28/22 0434 11/27/22 0318 11/26/22 1840 WBC 14.6* 15.4* 17.4* HGB 10.7* 12.4 12.5 HCT 32.3* 37.2 37.2 PLTCOUNT 244 260 244 BMP Recent Labs Component Name 11/28/22 0434 11/27/22 03111/26/22 1840 POTASSIUM 4.1 4.2 4.2 CO2 21* 22 19* BUN 12 8 10 CREATININE 0.50* 0.45* 0.41* GLUCOSE 129* 115 120* CALCIUM 9.5 9.7 9.8 PHOS 3.4 3.0 3.5 LFTs Recent Labs Component Name 11/25/22 0335 11/04/22 0633 10/09/22 1204 AST 24 25 15 ALT 24 27 10 ALKPHOS 85 124 83 Coags Recent Labs Component Name 08/28/22 2224 06/27/22 2215 05/11/22 1309 PT 15.2* 12.8 13.5 INR 1.2 1.0 1.0 ABG Recent Labs Component Name 11/27/22 0328 11/26/22 2041 11/26/22 1840 02/25/21 1212 04/11/15 0622 PH 7.47* 7.48* 7.48* - 7.38 PO2 84 123* 95 - 134* PCO2 35 35 34* - 36 HCO3 - - - - 20.9* BE 2.1* 2.8* 2.1* - -3.6* - = values in this interval not displayed. Recent Imaging: CT CHEST W CONTRAST Result Date: 11/25/2022 Impression: 1.Trace amount of debris in the right main bronchus, improved from previous examinationwith almost complete resolution of atelectasis in the right middle lobe with decreased right lower lobe atelectasis and decreased mediastinal shift. 2.Minimal debris is noted in the trachea proximal to the tracheostomy tube. > Dictated by Usman Arce MD, (resident medical officer). Ashwin Thomason MD have personally reviewed and interpreted this examination/study. > Interpreting Provider: Ashwin Read MD on 11/25/2022 11:[address] SINUS WWO CONTRAST Result Date: 11/25/2022 IMPRESSION: 1.Complete opacification of the right maxillary [...] the right eustachian tube, potentially by the abovementioned nasopharyngeal component. Findings are compatible with right antrochoanal polyp versus malignant neoplasm given the interval change and hemoptysis. Recommend ENT consultation with direct biliary dilatation and possible biopsy. 2.Scattered paranasal sinus mucosal thickening. These findingswere discussed in detail with the patient's care provider, Dr. Kinsey by Dr. Yañez via telephoneat 9:22 AM on 11/25/2022 with readback comprehension and verification. > Dictated by Christian Yañez DO (resident medical officer). I, Jason Sanchez MD have personally reviewed and interpreted this exam ination/study. > Interpreting Provider: Jason Sanchez MD on 11/25/2022 10:53 AM Recent Micro: Recent Results (from the past 124 hour(s)) MRSA DNA PCR Collection Time: 11/25/22 10:22 AM Specimen: Nasal; Microbiology Result Value Ref Range MRSA DNA by PCR Detected (Abnormal) Not detected Pathology: Specimens (From admission, onward) None Assessment and Plan Mojgan Tabor is a 62 year old male with medical complexity, including tracheostomy dependence and known antrochoanal polyp, admitted for concern for pneumonia and bleeding from antrochoanal polyp. Right main bronchus with improved ventilation after suctioning/lavage (large amounts of purulence remov ed). Patient now s/p bilateral nasal endoscopy, right maxillary antrostomy, and removal of polyp 11/26/22 (SM). Procedure complicated by VTACH intraop and further bleeding from right nare in PACU. Epistat and surgiflo ultimately placed in right nare. PLAN: - Took down posterior epistat 11/27, will decrease anterior balloon by half (~8ml) 11/28 - Keep tracheostomy cuff inflated to prevent aspiration of blood. - Afrin PRN - Appreciate cardiology rec's regarding perioperative VTACH Please call ENT with any further bleeding, questions or concerns. Akbar Jung MD Otolaryngology and Head and Neck Surgery Resident 11/28/22 * Stephen Witt MD - 11/28/2022 4:57 AM CDT 11/28/2022 I have reviewed and agree with resident documentation. VT during surgery- tx to ICU HR >151 Hypertension > 200--> started on esmolol with improved control of BP. Critical care was necessary to treat or prevent life-threatening deterioration of the following: V-tach (CMS/HCC) (POA: No) History of CVA (cerebrovascular accident) (POA: Yes) Seizure disorder (CMS/HCC) (POA: Yes) Acute on chronic respiratory failure with hypoxia (CMS/HCC) (POA: Yes) Protein-calorie malnutrition, unspecified severity (CMS/HCC) (POA: Yes) Sinus tachycardia (POA: Unknown) Dementia, vascular (CMS/HCC) (POA: Yes) Nasal polyp (POA: Yes) Hemoptysis (POA: Yes) Acute blood loss anemia (POA: Yes) PEG (percutaneous endoscopic gastrostomy) status (CMS/HCC) (POA: Yes) Tracheostomy in place (CMS/HCC) (POA: Yes) Uncontrolled hypertension (POA: No) The plan of care consists of: Neuro: Sedation for comfort. CVS: Echo today. Wean off esmolol infusion. Cardiology rec are appreciated. Resp: Trach care. Vent support- continue for now. Send sputum gram stain and cx. GI: PEG tube in place. Start feeding. Add bowel regimen. : IOs.BPH hx. ID: start empiric antibiotics given worsening secretions and slightly higher O2 needs. CXR. Vanc and pip/tazo. Endo: NA Heme: No transfusion need. Amp left leg DVT ppx: SCD on one leg. GI ppx: Pepcid ADDITIONAL COMMENTS Pt. is at high risk for complications and morbidity or mortality Pt. is critically ill with vital organ impairment or failure There is high probability of imminent or life threatening deterioration in the patient???s condition Time involved in the performance of separately billable procedures, teaching, reviewing education material was not counted towards critical care time. Patient is unable or incompetent to participate in giving a history and/or making decisions and discussion is necessary for determining treatment decisions. Overall critical care time provided: 35 Mins. Critical Care Attending: STEPHEN WITT M.D., [facility] * Gonzalo Herman RN - 11/27/2022 10:06 PM CDT Problem: Fall Risk Goal: Fall risk and fall related injury risk are minimized (interventions related to the fall risk can be found in the flowsheet documentation) Outcome: Progressing Problem: Skin Integrity Goal: Skin integrity is maintained or improved Outcome: Progressing Problem: Nutrient: Malnutrition Goal: Enteral/parenteral nutrition prescription will be consistent with estimated needs Outcome: Progressing Problem: Pain/Discomfort Goal: Patient exhibits reduced pain/discomfort as evidenced by pain scores Outcome: Progressing Goal: Patient uses pharmacological and non-pharmacological pain management strategies. Outcome: Progressing Goal: Patient verbalizes acceptable level of pain relief and ability to engage in desired activity. Outcome: Progressing * Bro Lainez RCP - 11/27/2022 2:34 PM CDT 11/27/22 1432 Patient Verification Patient Identified: By Identification Arm Band;Verified Medical Record number Mechanical Ventilation Mode VENT MODE AC/PC Medical Gases O2 % (FiO2) 25 % Vitals Pulse (!) 141 SpO2 99 % Ventilation Rate SET VENTILATION RATE (bpm) 12 bpm OBSERVED VENTILATION RATE (bpm) 12 bpm I:E Ratio 1:2 Actual I:E Ratio 1:2 Volumes EXHALED TIDAL VOLUME (ml) 507 ml Observed Minute Ventilation (L/m) 6 Liters/Minute Ventilator Pressures Set Pressure Control (cm H2O) 14 cm H2O OBSERVED PEAK INSPIRATORY PRESSURE (cm H2O) 20 cm H2O PLATEAU PRESSURE (cm H2O) 20 cm H2O Mean Airway Pressure (cm H2O) 9.8 cm H2O PEEP/CPAP 5 cm H20 Sensitivity Flow Trigger 5 Safety & Alarms Humidity Source Active Humidity Humidity Temp (C) 37 Celsius H2O Bag 1/ Humidifier alarm on and functional Yes Tubing inspected Yes Expiratory Filter In place High Pressure Alarm (cm H2O) 50 cm H2O Low Pressure alarm (cmH2O) 5 Low Minute Ventilation 3 High Tidal Volume 1000 Low Tidal Volume 100 ml High Resp Rate 40 Low Resp Rate 6 Apnea (secs) 20 secs Transport Start Time: 1330 Transport Assisted by 1# of Therapists Transport From: 440 Transport To:CT1 Total Transport Time: 65 min Patient transported with HOB @ 30-45 degrees? yes Oral care performed & documented within 4 hours of transport on life support? yes Patient's oral cavity suctioned, including above the airway cuff, prior to transport? Yes; Patient's emergency trach bag with pt. throughout transport * Stephen Witt MD - 11/27/2022 11:45 AM CDT 11/27/2022 I have reviewed and agree with resident documentation. VT during surgery- tx to ICU HR >151 Critical care was necessary to treat or prevent life-threatening deterioration of the following: History of CVA (cerebrovascular accident) (POA: Yes) Seizure disorder (CMS/HCC) (POA: Yes) Acute on chronic respiratory failure with hypoxia (CMS/HCC) (POA: Yes) Protein-calorie malnutrition, unspecified severity (CMS/HCC) (POA: Yes) Sinus tachycardia (POA: Unknown) Dementia, vascular (CMS/HCC) (POA: Yes) Nasal polyp (POA: Yes) Hemoptysis (POA: Yes) Acute blood loss anemia (POA: Yes) PEG (percutaneous endoscopic gastrostomy) status (CMS/HCC) (POA: Yes) Tracheostomy in place (CMS/HCC) (POA: Yes) V-tach (CMS/HCC) (POA: No) The plan of care consists of: Neuro: Sedation for comfort. CVS: Echo and check TSH, CT PE protocol STAT. Trop trend. EKG sinus tach. Wean off nicardipine. Start esmolol infusion for hypertension-uncontrolled. Cardiology team consulted. Resp: Trach care. Vent support- continue for now. GI: NPO. PEG tube in place. Start feeding in the next 24 hours. : IOs.BPH hx. ID: NA Endo: NA Heme: No transfusion need. Amp left leg DVT ppx: SCD on one leg. GI ppx: Pepcid ADDITIONAL COMMENTS Pt. is at high risk for complications and morbidity or mortality Pt. is critically ill with vital organ impairment or failure There is high probability of imminent or life threatening deterioration in the patient???s condition Time involved in the performance of separately billable procedures, teaching, reviewing education material was not counted towards critical care time. Patient is unable or incompetent to participate in giving a history and/or making decisions and discussion is necessary for determining treatment decisions. Overall critical care time provided: 31 Mins. Critical Care Attending: STEPHEN WITT M.D., [facility] * Araceli Argueta MD - 11/27/2022 9:06 AM CDT MICU Progress Note 11/27/2022 9:08 AM Patient: Mojgan Tabor (:1960) Room: [facility] Admit Date: 11/24/2022. Hospital Day: 2 CC: intraoperative ventricular tachycardia Hospital Course: Mojgan Tabor was admitted to the ICU following an aborted ENT procedure due to intraoperative ventricular tachycardia. The patient spontaneously converted to sinus rhythm in the OR after 2-3 minutes. His course has been complicated by sinus tachycardia to the 140's and uncontrolled hypertension. Interval History: Overnight, the patient was consistently tachycardic up to the 140's with uncontrolled hypertension.He continues to be unresponsive to voice or touch this morning. Objective: Vitals: 11/27/22 0504 11/27/22 0600 11/27/22 0700 11/27/22 0800 BP: (!) 173/114 (!) 172/133 Pulse: 107 (!) 128 (!) 131 Resp: 12 12 12 Temp: 99.4 ??F (37.4 ??C) SpO2: 99% 99% 98% Weight: Height: @IODETAIL@ S RR: 12 bpm S VT: 500 ML PEEP/CPAP: 5 cm H20 Mean Airway Pressure (cm H2O): 9.9 cm H2O O2 %: 25 % Physical Exam General - NAD, afebrile, non cachectic HEENT - NC/AT, clear conjunctivae, nasal balloons in R nostril Neck - Supple, no LAD Chest - CTAB no crackles or wheezes bilaterally CV - tachycardia with regular rhythm, no murmurs or gallops, radial and DP pulses 2/4, good capillary refill Abdomen - Soft, NT/ND, +BS, no organomegaly, PEG tube in place Musculoskeletal - No conscious movement appreciated Extremities - No c/c/e; L AKA Skin - No rashes, lesions or jaundice Neurologic - sedated, not responsive to voice or touch, responsive to pain Psych - unable to assess Labs: CBC: Recent Labs Component Name 11/27/2231711/26/22 18411/26/22 031 WBC 15.4* 17.4* 12.7* 12.7* HGB 12.4 12.5 12.5 12.5 HCT 37.2 37.2 37.9 37.9 BMP: Recent Labs Component Name 11/27/2231711/26/22 18411/26/22 031 NA 137 139 140 CL 104 109* 108* CO2 22 19* 26 BUN 8 10 11 CREATININE 0.45* 0.41* 0.46* CALCIUM 9.7 9.8 10.0 PHOS 3.0 3.5 3.4 Hepatic: Recent Labs Component Name 11/27/2231711/26/22 0310 11/25/22 0335 11/04/22 0633 10/09/22 1204 ALT - - 24 27 10 AST - - 24 25 15 TBILI - - 0.2 0.2 0.1* PROT - - 6.9 7.7 6.9 ALB 2.6* 2.6* 2.6* 2.9* 3.0* ALKPHOS - - 85 124 83 Coagulation: Recent Labs Component Name 08/28/22 2224 06/27/22 2215 05/11/22 1309 PT 15.2* 12.8 13.5 INR 1.2 1.0 1.0 Cardiac Markers: Recent Labs Component Name 07/11/22 0040 07/01/22 1634 06/28/22 0141 06/27/22 2215 05/30/22 1750 03/08/22 1455 12/31/21 0412 CKTOTAL 49 42 - - - - 77 TROPONINI - - <0.010 <0.010 <0.010 - - - = values in this interval not displayed. ABGs: No results for input(s): PHART, PO2ART, [id number], BEART in the last 47243 hours. Imaging: Imaging reviewed. Assessment: History of CVA (cerebrovascular accident) (POA: Yes) Seizure disorder (CMS/HCC) (POA: Yes) Acute on chronic respiratory failure with hypoxia (CMS/HCC) (POA: Yes) Protein-calorie malnutrition, unspecified severity (CMS/HCC) (POA: Yes) Sinus tachycardia (POA: Unknown) Dementia, vascular (CMS/HCC) (POA: Yes) Nasal polyp (POA: Yes) Hemoptysis (POA: Yes) Acute blood loss anemia (POA: Yes) PEG (percutaneous endoscopic gastrostomy) status (CMS/HCC) (POA: Yes) Tracheostomy in place (CMS/HCC) (POA: Yes) V-tach (CMS/HCC) (POA: No) PLAN: Neurological: #History of CVA c/b Left Sided Deficits #Dementia #Seizure Disorder - on SEAMAN atorvastatin 40mg, Depakote 500mg q6h, Clobazam 20mg BID, Lacosamide 200mg BID, Midazolam 5mg nasal spray PRN - holding SEAMAN ASA due to bleeding #Sedation > discontinue propofol due to QTc prolongation > sedation with IV fentanyl Cardiovascular: #Intraoperative Ventricular Tachycardia - noted during ENT procedure on 11/26 with spontaneous conversion to sinus after 2-3 minutes - cardiology consult recommended no acute intervention - troponin within normal limits > continue telemetry > echo ordered; f/u results > initiate amiodarone bolus with gtt if Vtach reoccurs > maintain K>4, Mg>2 #Sinus Tachycardia #Hypertension #Premature Ventricular Contractions - heart rate and blood pressure consistently elevated overnight into this morning - patient has HTN at baseline; was not on any SEAMAN meds - IV nicardipine and fluid bolus administered without improvement in symptoms > continue Fentanyl 50mcg q1h PRN to limit pain-related BP elevation > CT PE and lower extremity Duplex ultrasound to rule out as cause for tachycardia > discontinue nicardipine and initiate esmolol > check TSH > cardiology consulted for assistance with management, appreciate recommendations #QTc prolongation - baseline 455 - prolonged to 526 on most recent EKG > continue to monitor > avoid QT-prolonging medications > patient's sedative switched from propofol to fentanyl #PVD s/p L AKA - on SEAMAN atorvastatin 40mg - holding SEAMAN ASA due to bleeding Pulmonary: #Acute on Chronic Hypoxic Respiratory Failure s/p tracheostomy #Antrochoanal Polyp c/b bleeding - tracheostomy placed Jun 2022 during admission for aspiration pneumonia - surgical removal of bleeding polyp aborted due to Vtach run - epistat in place to control bleeding; posterior balloon deflated this AM - intubated with mechanical ventilation - CXR: tracheostomy tube stable in position > continue SEAMAN guaifenesin, levalbuterol > hold SEAMAN scopolamine patch until ENT recommends resuming > SpO2 goal of 90% GI: #Dysphagia s/p PEG placement #Severe Protein Calorie Malnutrition - tube feeds via PEG for nutrition at home > diet NPO for any additional surgical interventions, reinitiate diet as soon as possible Renal: #BPH - on SEAMAN tamsulosin 0.4mg Endocrine: BGM goal 140-180 mg/dL ID: #Leukocytosis - WBC of 15.4 today; likely reactive in setting of normal procalcitonin without other obvious signsof infection - CXR not concerning for infection > continue to monitor Heme/Onc: #Tracheal Bleeding - 2/2 antrochoanal polyp - Hgb appears stable ~12 > continue to trend CBC's daily > Keep tracheostomy cuff inflated to prevent aspiration of blood > Maintain epistat > Afrin PRN > ENT following FEN: -Monitor electrolytes QD, Replace K<4, Mg<2, Phos<3 Lines: Type: ETT, Jensen, PEG tube, PIV Prophylaxis: Aspiration precautions w/ HOB elevation by 30 degrees GI prophyalxis w/ famotidine DVT prophyalxis w/ SCDs only due to active bleed Diet: NPO Activity: Bedrest Disposition: ICU Monitoring Code Status: FULL Araceli Argueta MD Associated attestation - Stephen Witt MD - 11/27/2022 4:47 PM CDT 11/27/2022 Attending Physician Supervisory Note I personally saw, evaluated and examined the patient and agree with the assessment and plan of the housestaff doctor except noted in my notes. Stephen Witt MD * Akbar Jung MD - 11/27/2022 8:07 AM CDT Otolaryngology - Head and Neck Surgery Progress Note Today's Date: 11/27/2022 Subjective HPI: Mojgan Tabor is a 62 year old male with a hx of R. Occipital stroke (2014), head injury, seizures, Alzheimer's, Right BKA, refractory epilepsy, dysphasia w/PEG tube placement on 03/25/22 previously with recurrent aspirations now s/p transcervical Zenker's diverticulectomy, tracheostomy 07/15/22 (). Patient sent to ED from facility 2/2 tracheal and oral bleeding that began 11/24. Workup at outside ED also concerning for pneumonia with likely complete R bronchial occlusion with CXR. Upon consultation here, bronched at bedside by ENT. Right main bronchus with improved ventilation after suctioning/lavage (large amounts of purulence removed). Endoscopy at that time also revealed a bleeding right antrochoanal polyp that completely occludes right nasal cavity and the right half of the choana. Patient now s/p bilateral nasal endoscopy, right maxillary antrostomy, and removal of polyp 11/26/22(). Procedure complicated by VTACH intraop and further bleeding from right nare in PACU. Epistat and surgiflo ultimately placed in right nare (anterior balloon: 16 ml saline, posterior balloon 8 mlsaline). Interval History: No acute events overnight. Patient intermittently tachycardic to 140 and hypertensive. No significant bleeding noted. Objective Temp (30hrs) Max:99.4 ??F (37.4 ??C) Temp: [96.8 ??F (36 ??C)-99.4 ??F (37.4 ??C)] 99.4 ??F (37.4 ??C) Pulse: [94-140] 131 Resp: [3-20] 12 BP: (109-200)/(82-133) 172/133 O2 %: [25 %-70 %] 25 % Intake/Output Summary (Last 24 hours) at 11/27/2022 0838 Last data filed at 11/27/2022 0822 Gross per 24 hour Intake 1942.75 ml Output 2350 ml Net -407.25 ml DIET NPO Except: NO EXCEPTIONS Physical Exam: Constitutional: thin adult male, no acute distress. Neuro:cranial nerves III-XII grossly intact CV/Pulm: tachycardic with minimal blood-tinged mucoid tracheal secretions. On ventilator. Eyes: PERRL, EOMI Face/Skin: normal appearance, no lesions/masses Ears: Normal external auditory canals bilaterally. Nose: Epistat in place, no active bleeding. Mouth and oropharynx: symmetric tongue mobility, no lesions/masses/ulcers, no active bleeding. Neck: supple, no lymphadenopathy, no masses, 6.0 TTS bivona, no active bleeding with minimal bloodysecretions. MusculoSkeletal: moves all extremities well Labs: CBC Recent Labs Component Name 11/27/2231711/26/22183911/26/22309 WBC 15.4* 17.4* 12.7* 12.7* HGB 12.4 12.5 12.5 12.5 HCT 37.2 37.2 37.9 37.9 PLTCOUNT 260 244 194 194 BMP Recent Labs Component Name 11/27/2231711/26/22183911/26/22309 POTASSIUM 4.2 4.2 4.0 CO2 22 19* 26 BUN 8 10 11 CREATININE 0.45* 0.41* 0.46* GLUCOSE 115 120* 91 CALCIUM 9.7 9.8 10.0 PHOS 3.0 3.5 3.4 LFTs Recent Labs Component Name 11/25/2233411/04/2233 10/09/22 1204 AST 24 25 15 ALT 24 27 10 ALKPHOS 85 124 83 Coags Recent Labs Component Name 08/28/22 2224 06/27/22 2215 05/11/22 1309 PT 15.2* 12.8 13.5 INR 1.2 1.0 1.0 ABG Recent Labs Component Name 11/27/22 0328 11/26/22 2041 11/26/22 1840 02/25/21 1212 04/11/15 0622 PH 7.47* 7.48* 7.48* - 7.38 PO2 84 123* 95 - 134* PCO2 35 35 34* - 36 HCO3 - - - - 20.9* BE 2.1* 2.8* 2.1* - -3.6* - = values in this interval not displayed. Recent Imaging: CT CHEST W CONTRAST Result Date: 11/25/2022 Impression: 1.Trace amount of debris in the right main bronchus, improved from previous examinationwith almost complete resolution of atelectasis in the right middle lobe with decreased right lower lobe atelectasis and decreased mediastinal shift. 2.Minimal debris is noted in the trachea proximal to the tracheostomy tube. > Dictated by Usman Arce MD, (resident medical officer). I, Ashwin Read MD have personally reviewed and interpreted this examination/study. > Interpreting Provider: Ashwin Read MD on 11/25/2022 11:[address] SINUS WWO CONTRAST Result Date: 11/25/2022 IMPRESSION: 1.Complete opacification of the right maxillary [...] the right eustachian tube, potentially by the abovementioned nasopharyngeal component. Findings are compatible with right antrochoanal polyp versus malignant neoplasm given the interval change and hemoptysis. Recommend ENT consultation with direct biliary dilatation and possible biopsy. 2.Scattered paranasal sinus mucosal thickening. These findingswere discussed in detail with the patient's care provider, Dr. Kinsey by Dr. Yañez via telephoneat 9:22 AM on 11/25/2022 with readback comprehension and verification. > Dictated by Christian Yañez DO (resident medical officer). I, Jason Sanchez MD have personally reviewed and interpreted this exam ination/study. > Interpreting Provider: Jason Sanchez MD on 11/25/2022 10:53 AM Recent Micro: Recent Results (from the past 124 hour(s)) MRSA DNA PCR Collection Time: 11/25/22 10:22 AM Specimen: Nasal; Microbiology Result Value Ref Range MRSA DNA by PCR Detected (Abnormal) Not detected Pathology: Specimens (From admission, onward) None Assessment and Plan Mojgan Tabor is a 62 year old male with medical complexity, including tracheostomy dependence and known antrochoanal polyp, admitted for concern for pneumonia and bleeding from antrochoanal polyp. Right main bronchus with improved ventilation after suctioning/lavage (large amounts of purulence remov ed). Patient now s/p bilateral nasal endoscopy, right maxillary antrostomy, and removal of polyp 11/26/22 (). Procedure complicated by VTACH intraop and further bleeding from right nare in PACU. Epistat and surgiflo ultimately placed in right nare. PLAN: - Took down posterior epistat, maintain anterior (16 ml saline). Low threshold to reinflate posterior epistat if bleeding. - Keep tracheostomy cuff inflated to prevent aspiration of blood. - Afrin PRN - Appreciate cardiology rec's regarding perioperative VTACH Please call ENT with any further bleeding, questions or concerns. Akbar Jung MD Otolaryngology and Head and Neck Surgery Resident 11/27/22 * Sondra Orlando MD - 11/26/2022 5:11 PM CDT Otolaryngology Plan of Care Received call from PACU that the patient had pooling of bright red blood intermixed with clots, andhad suctioned ~200 ml over the past 45 minutes. Upon exam, patient was hemodynamically stable, sedated with propofol, and trach cuff was inflated. There was a large clot suctioned from posterior oropharynx and active bleeding that appeared to be coming from the nasopharynx. Surgiflo and Epistat (anterior balloon: 16 ml saline, posterior balloon 8 ml saline) placed in right nare with resolution ofbleeding. - Keep tracheostomy cuff inflated to prevent aspiration of blood - Maintain Epistat - Afrin at bedside, use PRN - Please call ENT if concerns for further bleeding Sondra Orlando MD Otolaryngology and Head and Neck Surgery Resident 11/26/22 * Elmo Caicedo SLP - 11/26/2022 1:30 PM CDT [facility] Department of Physical Medicine & Rehabilitation Progress Note Patient: Mojgan Tabor [facility] Record Number: [id number] Date of : 1960 Age: [age] year old 11/26/22 1300 Therapy on Hold Therapy on Hold Surgery Elmo Ansari M.A., [facility] [employer] Speech Language Pathologist [phone] * Clover Crowley RN - 11/26/2022 10:22 AM CDT Case Management Initial Assessment Case Management screen completed & Welcome Letter given. Anticipated level of care at discharge: Usp - Medicaid Discharge Plans: To be determined based on patient needs and recommendations from the multidisciplinary team. Prior Level of Functioning: Patient came from [facility]. He receives assistance with ADLs from the facility staff. Lives with: Other (Comment) (from [place]) Basic Needs Assessment (BNA) Score: n/a Readmission: Yes Met with chart review Discharge Goals and Plans: Patient Goals: safe discharge Plans: Discharge needs identified. See progress notes for details. Case Management to follow for discharge planning. Upon discharge or transfer to a post acute facility should rehospitalization, home health, rehabilitation, or any other follow up care be required, patient's preference is to stay within the [facility] and its affiliates.: Yes Verify Family Support (name and phone): Extended Emergency Contact Information Primary Emergency Contact: Adriane Hilliard Mobile Relation: Sister Farm Operator needed? 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 No Anticipated Discharge Date: 12/01/22 Patient/Family provided with list of resources? Unknown Preferred Provider / High Quality Network List given?: Unknown Reason for provider choice: Unknown Transportation at Discharge: Ambulance Transportation to MD appointments: Ambulance Equipment at Home: Equipment at Home: Facility Equipment If no PCP, action taken: ELANA Saldaña is PCP Pharmacy benefit: Yes Medication affordability concerns: No Hunger Screening: Instructor Of Sociology Referral: Yes If patient requires HHC at discharge, he/she requests: Patient agreeable to speak with [facility] Will continue to follow. For any questions or needs please contact: Supervisor Pipeline Maintenance Name/Phone number: Clover Crowley RN Case Manager [phone] * Melany Macias MD - 11/26/2022 9:30 AM CDT Internal Medicine Progress Note 11/26/2022 9:30 AM Patient Name: Mojgan Tabor (62 year old) Room Number: 843/01 Attending: Germaine Nails MD Hospital Day: 1 Subjective: - No acute issues or events overnight - Slight oozing in early AM per nursing staff - This AM slightly less alert than prior although still rouses to voice and his able to squeeze left hand - Increasing FiO2 requirements overnight; no other significant hemodynamic changes, significant netout over 24h period as well - ENT planning to take to OR this afternoon; TF held, AC already held 2/2 bleeding Objective: Patient Vitals for the past 6 hrs: Temp Pulse Resp BP BP Method 11/26/22 0902 98.1 ??F (36.7 ??C) (!) 119 20 161/99 Automatic 11/26/22 0554 98.4 ??F (36.9 ??C) (!) 131 16 (!) 165/103 Automatic 11/26/22 0552 -- (!) 122 -- -- -- 11/26/22 0456 98.7 ??F (37.1 ??C) (!) 131 18 168/94 -- 11/26/22 0414 -- (!) 134 18 -- -- Intake/Output Summary (Last 24 hours) at 11/26/2022 0930 Last data filed at 11/26/2022 0921 Gross per 24 hour Intake 450 ml Output 4850 ml Net -4400 ml Physical Exam General: Sitting up in bed w/HOB elevated. Appears mildly uncomfortable. HENT: NC/AT Neck: Trach in place Eyes: Anicteric. Non-injected. Chest: Breath sounds decreased on the right side. No increased work of breathing on HFNC. Cardiovascular: Tachycardic with otherwise regular rhythm. No murmurs, rubs, or gallops Abdomen: Soft. NT/ND. Normal BS+. PEG in place Extremities: No signs of clubbing, cyanosis, or edema. Left leg s/p AKA. Skin: Warm. Mild decrease in skin turgor. Neurological: Awakens to stimuli but otherwise not significantly alert. Able to squeeze left hand to command. Psych: Unable to fully assess in setting of mentation; no overt agitation. Medications ?? SCHEDULED MEDICATIONS: ?? 0.9% NaCl injection 3 mL, Intracatheter, q8h ?? artificial tears ophthalmic ointment, Each Eye, q8h ?? atorvastatin (Lipitor) tablet 40 mg, Enteral Tube, AT BEDTIME ?? cloBAZam (Onfi) tablet 20 mg, Enteral Tube, BID ?? divalproex sprinkle (Depakote Sprinkle) capsule 500 mg, Enteral Tube, q6h ?? folic acid (Folvite) tablet 1 mg, Enteral Tube, QDAY ?? guaiFENesin (Robitussin) solution 10 mL, Enteral Tube, q6h ?? iopamidol (Isovue 370) 76 % contrast, Intravenous, Contrast - Once ?? lacosamide (Vimpat) tablet 200 mg, Enteral Tube, BID ?? levETIRAcetam (Keppra) tablet 2,000 mg, Enteral Tube, BID ?? magnesium sulfate 4 g in 100 mL bolus, Intravenous, Once ?? senna-docusate (Senokot-S) tablet 1 tablet, Enteral Tube, BID ?? thiamine (Vitamin B-1) tablet 100 mg, Enteral Tube, QDAY ?? [COMPLETED] lactated ringers IV bolus, Intravenous, Once ?? [COMPLETED] tranexamic acid (Cyklokapron) 1,000 mg in 0.9% NaCl IV 110 mL infusion, Intravenous,Once ?? [] lidocaine (Xylocaine) 1 % injection, Infiltration, Now ?? [] oxymetazoline (Afrin) 0.05 % nasal spray 1 spray, Each Nostril, Now ?? CONTINUOUS MEDICATIONS: ?? lactated ringers infusion, Intravenous, Continuous ?? PRN MEDICATIONS: ?? Or ?? 0.9% NaCl injection 1-10 mL, Intracatheter, PRN ?? acetaminophen (Tylenol) tablet 500 mg, Enteral Tube, q6h PRN ?? dextrose 10 % IV bolus, Intravenous, PRN ?? dextrose 10 % IV bolus, Intravenous, PRN ?? glucagon (Glucagen) injection 1 mg, Subcutaneous, PRN ?? glucose (Diabetic Use) (Dex4 Glucose) oral liquid, Oral, PRN ?? glucose (Diabetic Use) oral gel, Oral, PRN ?? glucose chew tablet 4 tablet, Oral, PRN ?? levalbuterol (Xopenex) nebulizer solution 1.25 mg, Inhalation, q8h PRN Data Review Recent Labs Component Name 11/26/22 0310 11/24/22 2347 11/04/22 0633 03/09/22 0135 03/08/22 1455 WBC 12.7* 12.7* 10.5 7.4 - 20.8* HGB 12.5 12.5 11.5* 14.2 - 14.3 HCT 37.9 37.9 35.9 44.4 - 42.9 PLATELET - - - - Occasional* PLTCOUNT 194 194 225 169 - 211 - = values in this interval not displayed. Recent Labs Component Name 11/26/22 0310 11/25/22 0335 POTASSIUM 4.0 4.5 CO2 26 26 BUN 11 16 CREATININE 0.46* 0.45* CALCIUM 10.0 9.5 ALT - 24 AST - 24 GLUCOSE 91 91 Recent Labs Component Name 08/28/22 2224 06/27/22 2215 05/11/22 1309 INR 1.2 1.0 1.0 Microbiology: Reviewed in [facility] Imaging: Reviewed in [facility] Assessment and Plan: #Acute on Chronic Hypoxic Respiratory Failure s/p Tracheostomy #Antrochoanal Polyp c/b Bleeding #Acute Blood Loss Anemia - Home Meds: Scopolamine Patch q3days, Guaifenesin 10mL q6h, Levalbuterol Neb PRN - s/p placement of tracheostomy in 06/2022 during admission for aspiration pneumonia in setting of poor neurologic status - Per LTAC, baseline is 4-5L via trach collar; current issues developed acutely after suctioning inevening of day of presentation - At this time, most likely etiology of current symptoms is bleeding of antrochoanal polyp 2/2 suctioning attempts at LTAC with passage of blood into lungs as reason for worsened respiratory status - Although he has had numerous episodes of aspiration/HCAP pneumonia, likelihood is lower at this time given acuteness of onset, lack of fever or other clinical signs of infection; imaging notes improvements of lung parenchyma when compared to prior admissions as well PLAN: - ENT planning to take to OR today for polyp removal given issues with oozing/bleeding - Continue HFNC at this time to maintain SpO2 of 90% or more; wean as tolerated - Continue continuous SpO2 monitoring - Continue home guaifenesin - Suctioning + Levalbuterol PRN - Resume scopolamine patch later this week; can discuss timing w/ENT after procedure (Tuesday potential first day) ?? #History of CVA c/b Left Sided Deficits #Dementia #Seizure Disorder - Home Meds: ASA 81mg, Atorvastatin 40mg, Clobazam 20mg BID, Depakote 500mg q6h, Lacosamide 200 BID, Midazolam 5mg nasal spray PRN - Prior history of stroke c/b left sided weakness, inability to communicate/interact to significantdegree, and seizures PLAN: - Hold home ASA given bleeding - Hold home nasal spray as not on formulary - Continue other home medications ? #Dysphagia s/p PEG Placement #Severe Protein Calorie Malnutrition - Dependent on PEG for medical nutrition PLAN: - Nutrition consult to assist with feeding needs - Holding TF at this time 2/2 ENT plans for OR ? #Sinus Tachycardia - HR elevated to 120s; EKG notes sinus tachycardia - s/p 1L on day of arrival; remained tachycardic although was charted with significant net out overpast 24h PLAN: - Will re-order LR at 125mL/hr for 12 hours - Monitor on telemetry ? #PVD s/p Left AKA - Home Meds: Statin + ASA PLAN: - As above ? #Hypertension - Has documented history, although no BP meds as outpatient - Possible acute elevation at this time 2/2 discomfort PLAN: - Hold on addition of new antihypertensives at this time - Management of AoCHRF as above #BPH - Continue home tamsulosin 0.4mg - Continue Jensen at this time in setting of OR preparation this afternoon #Disposition - Comes from LTAC in [place] - Per chart review, family has been adamant regarding desire for Full Code status despite overallpoor prognosis - Barriers to DC: - Bleeding from trach - Respiratory status # DVT prophylaxis: SCDs; hold chemical given bleeding # GI prophylaxis: N/A # Diet: NPO for OR # IVF: As above # Code: Full Code # Disposition: As above This patient will be discussed with the Attending Dr. Kash Macias MD Internal Medicine, PGY-3 11/26/2022 9:30 AM * Alden Hurtado MD - 11/26/2022 7:23 AM CDT Otolaryngology - Head and Neck Surgery Progress Note Today's Date: 11/26/2022 Subjective HPI: Mojgan Tabor is a 62 year old male with a hx of R. Occipital stroke (2015), head injury, seizures, Alzheimer's, Right BKA, refractory epilepsy, dysphasia w/PEG tube placement on 03/25/22 previously with recurrent aspirations now s/p transcervical Zenker's diverticulectomy, tracheostomy 07/15/22 (). Patient sent to ED from facility 2/2 tracheal and oral bleeding that began last night. Also patientfound to have likely complete R bronchial occulusion with CXR. Upon consultation, bronched at bedside by ENT. Right main bronchus with improved ventilation after suctioning/lavage (large amounts of purulence removed). Interval History: Oozing from right nare yesterday, Surgiflo applied. No acute events overnight. Afebrile. Intermittently tachycardic. Hypertensive. On trach adapter. Blood-tinged trach secretions suctioned upon rounds. MRSA+ Objective Temp (30hrs) Max:98.7 ??F (37.1 ??C) Temp: [97.6 ??F (36.4 ??C)-98.7 ??F (37.1 ??C)] 98.4 ??F (36.9 ??C) Pulse: [94-134] 131 Resp: [7-27] 16 BP: (145-194)/(91-118) 165/103 O2 %: [40 %-70 %] 70 % Intake/Output Summary (Last 24 hours) at 11/26/2022 0724 Last data filed at 11/26/2022 0608 Gross per 24 hour Intake 250 ml Output 6550 ml Net -6300 ml DIET NPO WITH TUBE FEEDING DIET TUBE FEEDING CONTINUOUS Physical Exam: Constitutional: thin adult male, in mild respiratory distress. Neuro:cranial nerves III-XII grossly intact CV/Pulm: tachycardic with minimal blood-tinged mucoid tracheal secretions. On HF trach collar. Eyes: PERRL, EOMI Face/Skin: normal appearance, no lesions/masses Ears: Normal external auditory canals bilaterally. Nose: packed with floseal, gel foam, surgiflo Mouth and oropharynx: symmetric tongue mobility, no lesions/masses/ulcers Neck: supple, no lymphadenopathy, no masses 6.0 TTS bivona . MusculoSkeletal: moves all extremities well Labs: CBC Recent Labs Component Name 11/26/22 0310 11/24/22 2347 11/04/22 0633 WBC 12.7* 12.7* 10.5 7.4 HGB 12.5 12.5 11.5* 14.2 HCT 37.9 37.9 35.9 44.4 PLTCOUNT 194 194 225 169 BMP Recent Labs Component Name 11/26/22 0310 11/25/22 0335 11/04/22 0633 11/01/22 0644 POTASSIUM 4.0 4.5 4.0 4.0 CO2 26 26 24 27 BUN 11 16 14 14 CREATININE 0.46* 0.45* 0.47* 0.51* GLUCOSE 91 91 98 90 CALCIUM 10.0 9.5 9.7 9.6 PHOS 3.4 - 3.0 3.2 LFTs Recent Labs Component Name 11/25/22 0335 11/04/22 0633 10/09/22 1204 AST 24 25 15 ALT 24 27 10 ALKPHOS 85 124 83 Coags Recent Labs Component Name 08/28/22 2224 06/27/22 2215 05/11/22 1309 PT 15.2* 12.8 13.5 INR 1.2 1.0 1.0 ABG Recent Labs Component Name 10/09/22 1204 09/14/22 1208 09/07/22 0941 02/25/21 1212 04/11/15 0622 PH 7.42 7.43 7.44 - 7.38 PO2 61* 79* 100 - 134* PCO2 41 45 46* - 36 HCO3 - - - - 20.9* BE 1.9 4.9* 6.2* - -3.6* - = values in this interval not displayed. Recent Imaging: CT CHEST W CONTRAST Result Date: 11/25/2022 Impression: 1.Trace amount of debris in the right main bronchus, improved from previous examinationwith almost complete resolution of atelectasis in the right middle lobe with decreased right lower lobe atelectasis and decreased mediastinal shift. 2.Minimal debris is noted in the trachea proximal to the tracheostomy tube. > Dictated by Usman Arce MD, MD (resident medical officer). IAshwin MD have personally reviewed and interpreted this examination/study. > Interpreting Provider: Ashwin Read MD on 11/25/2022 11:[address] SINUS WWO CONTRAST Result Date: 11/25/2022 IMPRESSION: 1.Complete opacification of the right maxillary [...] the right eustachian tube, potentially by the abovementioned nasopharyngeal component. Findings are compatible with right antrochoanal polyp versus malignant neoplasm given the interval change and hemoptysis. Recommend ENT consultation with direct biliary dilatation and possible biopsy. 2.Scattered paranasal sinus mucosal thickening. These findingswere discussed in detail with the patient's care provider, Dr. Kinsey by Dr. Yañez via telephoneat 9:22 AM on 11/25/2022 with readback comprehension and verification. > Dictated by Christian Yañez DO (resident medical officer). I, Jason Sanchez MD have personally reviewed and interpreted this exam ination/study. > Interpreting Provider: Jason Sanchez MD on 11/25/2022 10:53 AM Recent Micro: Recent Results (from the past 124 hour(s)) MRSA DNA PCR Collection Time: 11/25/22 10:22 AM Specimen: Nasal; Microbiology Result Value Ref Range MRSA DNA by PCR Detected (Abnormal) Not detected Pathology: Specimens (From admission, onward) None Assessment and Plan Mojgan Tabor is a 62 year old male with with medical complexity, including tracheostomy dependence and known antrochoanal polyp, now with concern for pneumonia and intermittent bleeding from antrochoanal polyp. Right main bronchus with improved ventilation after suctioning/lavage (large amounts of purulence removed). Bleeding now controlled with topical treatments and packing. Can consider excision of the polyp on an elective bases, possibly this admission depending on the pulmonary status. PLAN: - CT chest non revealing, but obtained after large amounts of purulence removed via bronchoscopy. Would recommend obtaining sputum culture. - Afrin PRN Please call ENT with any questions or concerns. Sondra Orlando MD Otolaryngology and Head and Neck Surgery Resident 11/26/22 ADDENDUM: After evaluation with Dr. Hurtado, it would be beneficial to proceed with surgical excision of polyp today. Will plan for bilateral nasal endoscopy, right maxillary antrostomy, removal of polyp, possible ethmoidectomy, sphenoidotomy, frontal sinusotomy with Stealth image guidance, pending OR availability. - Not on blood thinners - Will obtain consent from family - IV fluids per primary team - Will discuss with anesthesia and OR to find a time Sondra Orlando MD Otolaryngology and Head and Neck Surgery Resident 11/26/22 * Callie Hodgson RN - 11/26/2022 1:13 AM CDT Problem: Fall Risk Goal: Fall risk and fall related injury risk are minimized (interventions related to the fall risk can be found in the flowsheet documentation) Outcome: Progressing * Koby Smith PharmD - 11/25/2022 9:28 AM CDT ACTIVE CONSULTS TO PHARMACY/DISEASE STATE MONITORING Pharmacy [...] patient populations. REF: https://www.idsociety.org/practice-guideline/vancomycin/ ASSESSMENT/PLAN Indication: suspected PNA Goal Level: AUC 400-600 Assessment ?? Renal assessment: considered stable at this time ?? Historical dosing data that influences current dosing decisions: Yes ?? History of MRSA colonization or positive cultures: Yes Plan ??? Regimen: o Loading dose: 1500 mg o Maintenance dose: 750 mg, o Dosing interval: Q8 hr o This regimen calculates to provide estimated AUC of 530 mg-h/L, trough 15.7 per August. - Will assess potential switch to q12h based on levels obtained, given age ??? Monitoring o Will order a vancomycin peak level after maintenance dose on 11/26 at 1700 and trough level prior to maintenance dose on 11/26 at 2100 and adjust regimen if indicated. o Continue to monitor patient???s renal function and cultures as needed. Koby Smith, PharmKike 11/25/2022 9:22 AM [facility] Vancomycin Guideline SUBJECTIVE/OBJECTIVE Mojgan Tabor is a 62 year old male. The primary encounter diagnosis was Pneumonia of right lung dueto infectious organism, unspecified part of lung. Diagnoses of Hemoptysis, Nasal polyp, and Tracheostomy in place ([facility]) were also pertinent to this visit. Height: 5' 10 (177.8 cm) Wt 54.9 kg (121 lb) Body mass index is 17.36 kg/m??. Recent Labs Component Name 11/25/22 0335 11/24/22 2347 11/04/22 0633 11/01/22 0644 10/30/22 0546 CREATININE 0.45* - 0.47* 0.51* 0.41* BUN 16 - 14 14 14 WBC - 10.5 7.4 6.8 7.9 Dialysis Orders (72h ago, onward) None Radiocontrast within 72 hours The 3 most recent administrations since 11/22/2022 are shown below each listed medication. Other Order Route Dose Action Date iopamidol (Isovue 370) 76 % contrast Intravenous 100 mL $ Given - Contrast 11/25/2022 Vancomycin Administrations from [facility] (last 72 hours) Date/Time Action Medication Dose Rate 11/25/22 0558 $ New Bag/Syringe vancomycin (Vancocin) 1,500 mg in 500 mL NaCl IVPB Premix 1,500 mg 333.33 mL/hr Recent Labs Component Name 09/10/22 0906 09/02/22 0848 08/31/22 0923 07/04/22 0145 07/03/22 0405 07/02/22 0531 VANCORNDM - - - 22.0 26.1 32.1 VANCTROUGH 14.1 20.7* 11.5 - - - * Myrna Aceves RT(R) - 11/25/2022 5:[address] confirmed the sinus with and without order with Dr. Aria Cruz. * Lowell Gleason MD - 11/25/2022 5:02 AM CDT Patient accepted to medicine service. However, due to being at patient [facility], medicine will take overcare at 7:30am. * Myrna Choudhary RCP - 11/25/2022 5:00 AM CDT Assisted with bedside bronchoscopy. [place] protocol checklist completed prior to procedure with attending physician present. FiO2 increased to 100%. SpO2 alarm set to audible. Scope lubricated, all lung segments/airways inspected. Specimens obtained via bal. Patient tolerated procedure adequately. Specimens prepared and sent to Lab by nursing. Disposable regular bronchoscope and rhinoscope used. documented in this encounter H&P Notes * Marcella Flores DO - 12/10/2022 12:02 PM CDT PRE-PROCEDURE HISTORY & PHYSICAL NOTE 12/10/2022 12:02 PM Patient: Mojgan Tabor, date of 1960 Procedure(s) planned: PEG tube exchange Indication(s): gastroparesis, in preparation for IR G to GJ exchange History: Patient is a 62 year old Male presenting for PEG tube exchange in preparation for IR G to GJ extension. Patient Active Problem List Diagnosis Date Noted ??? COVID-19 04/14/2021 Priority: High ??? History of CVA (cerebrovascular accident) 12/11/2020 Priority: High ??? Cognitive communication deficit 08/25/2020 Priority: High ??? Dysphagia, oropharyngeal phase 08/25/2020 Priority: High ??? Epilepsy, unspecified, not intractable, without status epilepticus (CMS/HCC) 05/25/2019 Priority: High ??? Hemiplegia and 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-dominant side (CMS/HCC) 05/25/2019 Priority: High ??? Alzheimer's disease with early onset (CMS/HCC) 05/17/2019 Priority: High ??? Paroxysmal tachycardia, unspecified (CMS/HCC) 05/16/2019 Priority: High ??? Alcohol abuse, uncomplicated 08/13/2015 Priority: High ??? Benign neoplasm of prostate 06/26/2015 Priority: High ??? Other specified rheumatoid arthritis, unspecified site ([facility]) 06/26/2015 Priority: High ??? Uncontrolled hypertension 11/28/2022 Priority: Not Prioritized Uncontrolled. ??? V-tach ([facility]) 11/27/2022 Priority: Not Prioritized ??? Nasal polyp 11/25/2022 Priority: Not Prioritized ??? Hemoptysis 11/25/2022 Priority: Not Prioritized ??? Acute blood loss anemia 11/25/2022 Priority: Not Prioritized ??? PEG (percutaneous endoscopic gastrostomy) status ([facility]) 11/25/2022 Priority: Not Prioritized ??? Tracheostomy in place ([facility]) 11/25/2022 Priority: Not Prioritized ??? Pressure ulcer of right heel, stage 3 ([facility]) 10/17/2022 Priority: Not Prioritized ??? Dementia, vascular ([facility]) 10/17/2022 Priority: Not Prioritized ??? Atelectasis, right 07/05/2022 Priority: Not Prioritized ??? Contrast-induced nephropathy 07/05/2022 Priority: Not Prioritized ??? 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 Priority: Not Prioritized ??? Leukocytosis, unspecified type 06/28/2022 Priority: Not Prioritized ??? Sinus tachycardia 06/28/2022 Priority: Not Prioritized ??? Hypoxia 06/28/2022 Priority: Not Prioritized ??? Acute respiratory failure with hypoxia ([facility]) 06/28/2022 Priority: Not Prioritized ??? Aspiration pneumonitis ([facility]) 06/13/2022 Priority: Not Prioritized ??? Aspiration into airway 06/12/2022 Priority: Not Prioritized ??? Protein-calorie malnutrition, unspecified severity ([facility]) 06/03/2022 Priority: Not Prioritized ??? Abdominal pain, generalized 05/30/2022 Priority: Not Prioritized ??? Lethargy 05/30/2022 Priority: Not Prioritized ??? History of stroke 05/30/2022 Priority: Not Prioritized ??? Acute on chronic respiratory failure with hypoxia ([facility]) 05/30/2022 Priority: Not Prioritized ??? Bacteremia 03/11/2022 Priority: Not Prioritized ??? Ulcer of left foot ([facility]) 03/11/2022 Priority: Not Prioritized ??? PAD (peripheral artery disease) ([facility]/HCC) 03/11/2022 Priority: Not Prioritized ??? Severe protein-calorie malnutrition ([facility]) 03/11/2022 Priority: Not Prioritized ??? Status epilepticus ([facility]) 12/30/2021 Priority: Not Prioritized ??? Seizure disorder ([facility]) 12/30/2021 Priority: Not Prioritized ??? Seizures ([facility]) 08/13/2020 Priority: Not Prioritized ??? Therapeutic procedure Priority: Not Prioritized ??? Cerebrovascular accident ([facility]) 06/13/2019 Priority: Not Prioritized ??? Insomnia 06/13/2019 Priority: Not Prioritized ??? Low back pain 06/13/2019 Priority: Not Prioritized ??? Osteoporosis 11/22/2018 Priority: Not Prioritized ??? Essential (primary) hypertension 07/24/2015 Priority: Not Prioritized ??? Hyperlipidemia 04/14/2015 Priority: Not Prioritized Last Assessment & Plan: Continue home meds and monitor ??? 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 CVA (cerebral vascular accident) ([facility]) ??? HTN (hypertension) ??? Seizure ([facility]) No family history on file. Past Surgical History: Procedure Laterality Date ??? [...] No Stress: No Stress Concern Present (11/28/2022) [employer] - Occupational Stress Questionnaire ??? Feeling of Stress : Not at all Housing Stability: Low Risk (11/28/2022) Housing Stability Vital Sign ??? Unable to Pay for Housing in the Last Year: No ??? Number of Places Lived in the Last Year: 1 ??? Unstable Housing in the Last Year: No Allergies Allergen Reactions ??? Clonazepam Psychiatric hallucinations No current facility-administered medications on file prior to encounter. Current Outpatient Medications on File Prior to Encounter Medication Sig Dispense Refill ??? acetaminophen (Tylenol) 500 MG tablet 1 (one) tablet by Enteral [...] by Enteral Tube route once daily ??? cetirizine (ZyrTEC) 10 MG tablet 1 (one) tablet by Enteral Tube route once daily ??? cloBAZam (Onfi) 20 MG tablet 1 (one) tablet by Enteral Tube route 2 times daily 60 tablet 5 ??? cloBAZam (Onfi) 20 MG tablet 1 (one) tablet by Enteral Tube route 2 times daily 14 tablet 0 ??? divalproex sprinkle (Depakote Sprinkle) 125 MG capsule 4 (four) capsules by Enteral Tube route every 6 hours 480 capsule 11 ??? divalproex sprinkle (Depakote Sprinkle) 125 MG capsule 4 (four) capsules by Enteral Tube route every 6 hours 108 capsule 0 ??? docusate sodium (Colace) 150 MG/15ML solution Take 15 mL by mouth once daily as needed for Constipation ??? enoxaparin (Lovenox) 40 MG/0.4ML injection Inject 40 (forty) mg subcutaneously once daily ??? fluticasone propionate (Flonase) 50 MCG/ACT nasal spray [place] 1 (one) spray into each nostril once daily ??? folic acid (Folvite) 1 MG tablet 1 (one) tablet by Enteral Tube route once daily ??? guaiFENesin (Robitussin) 100 MG/5ML solution 10 mL by Enteral Tube route every 6 hours ??? lacosamide (Vimpat) 200 MG tablet 1 (one) tablet by Enteral Tube route 2 times daily 60 tablet 5 ??? lacosamide (Vimpat) 200 MG tablet 1 (one) tablet by Enteral Tube route 2 times daily 14 tablet 0 ??? levalbuterol (Xopenex) 1.25 MG/3ML nebulizer solution Inhale 3 mL by mouth every 8 hours as needed for Shortness of Breath or Wheezing ??? levETIRAcetam (Keppra) 1000 MG tablet 2 (two) tablets by Enteral Tube route 2 times daily 120 tablet 11 ??? levETIRAcetam (Keppra) 1000 MG tablet 2 (two) tablets by Enteral Tube route 2 times daily 28 tablet 0 ??? midazolam (Nayzilam) 5 MG/0.1ML nasal spray [place] 0.1 mL into the nose as needed for Seizures 1Each 5 ??? midazolam (Nayzilam) 5 MG/0.1ML nasal spray [place] 0.1 mL into the nose as needed for Seizures 1Each 0 ??? scopolamine (Transderm-Scop) 1 MG patch Apply 1 (one) patch to skin every 3 days ??? senna-docusate (Senokot-S) 8.6-50 MG tablet 1 (one) tablet by Enteral Tube route 2 times daily ??? tamsulosin (Flomax) 0.4 MG capsule Take 1 (one) capsule by mouth once daily At the same time every day after a meal. Please make sure it is via enteral tube. ??? thiamine (Vitamin B-1) 100 MG tablet 1 (one) tablet by Enteral Tube route once daily Current Facility-Administered Medications Medication ??? 0.9% NaCl injection 3 mL And ??? 0.9% NaCl injection 1-10 mL ??? atorvastatin (Lipitor) tablet 40 mg ??? cloBAZam (Onfi) tablet 20 mg ??? dextrose 10 % IV bolus Or ??? dextrose 10 % IV bolus ??? dextrose 5 % infusion ??? divalproex sprinkle (Depakote Sprinkle) capsule 500 mg ??? folic acid (Folvite) tablet 1 mg ??? glucagon (Glucagen) injection 1 mg ??? glucose (Diabetic Use) (Dex4 Glucose) oral liquid ??? glucose (Diabetic Use) oral gel ??? glucose chew tablet 4 tablet ??? guaiFENesin (Robitussin) solution 10 mL ??? lacosamide (Vimpat) tablet 200 mg ??? levalbuterol (Xopenex) nebulizer solution 1.25 mg ??? levETIRAcetam (Keppra) oral solution 2,000 mg ??? metoprolol tartrate IR (Lopressor) tablet 25 mg ??? sodium chloride (Inhalant) 7 % nebulizer solution 4 mL ??? tamsulosin (Flomax) capsule 0.4 mg ??? thiamine (Vitamin B-1) tablet 100 mg ROS- limited- pt not responding to questions Physical Exam: BP 142/96 Pulse 73 Temp 97.8 ??F (36.6 ??C) (Oral) Resp 18 Ht 1.778 m (5' 10 ) Wt 70.8 kg(156 lb) SpO2 99% General appearance: awake, tracks Heart: normal pulse Lungs: breathing comfortably Abdomen: soft without mass, non-tender. 24 Fr PEG tube in place in the epigastric region. External markings are no longer visible. Freely rotatable. Lab Results Component Value Date/Time HGB 13.0 12/10/2022 03:44 AM INR 1.1 12/09/2022 12:11 PM CREATININE 0.50 (L) 12/10/2022 03:44 AM Sedation Plan: Monitored Anesthesia Care (MAC) by the anesthesia team. Procedure Plan: Based on the above assessment, we will perform the procedures indicated above. I have discussed the plan, risks, benefits and alternatives with the patient or guardian. When assessment above was not obtained immediately before the procedure, I have reassessed this patient and there are no changes. Marcella Flores DO * Naa Ferrera DO - 11/26/2022 4:15 PM CDT MICU History & Physical Note 11/26/2022 4:16 PM Patient: Mojgan Tabor (:1960) Room: OR/OR Admit Date: 11/24/2022. Hospital Day: 1 CC: Ventricular Tachycardia HPI: Mojgan Tabor is 62 year old male with history of CVA c/b left-sided residual deficits, seizure disorder, dementia, dysphagia w/ recurrent aspiration s/p PEG (02/2022), zenker divertiuculum s/p diverticulectomy 2022, chronic hypoxic respiratory faiure s/p trach 06/2022, PVD s/p L AKA, and HTN admitted on 11/24/2022 from LTAC for acute on chronic hypoxic respiratory failure and bleeding from tracheostomy. Nursing at LTAC noted congestion and suctioned blood prompting transfer to [facility]. Initially requiring HFNC to maintain saturations. CT showed tract debris in the r main bronchus improved from prior exam. CT sinus with complete opacifciation of the R maxially sinus, new complete opacification ofthe R mastoid air cells and R middle ear cavity. ENT saw the patient and determined bleed likely 2/2 antrochoanal polyp. ENT took patient for surgical excision of polyp 11/26, however, during case patient converted to V tach on dye weigher helper so case was aborted. Per ENT notes carotid pulse was weak but palpable, he then spontaneously converted after 2-3 min without intervention. Patient transferred to MICU for cardiac monitoring and work up. Upon arrival to MICU SBP 170, HR 120. Patient arrived on ventilator. EKG obtained showing sinus tach. CBC showing hgb 12, WBC 17. Cardiology consulted and evaluated patient, recommending cardiac monitoring, echo, and optimizing electrolytes. Past Medical History Past Medical History: Diagnosis [...] Left 03/15/2022 Left; LEFT BKA POSS AKA Social History Social History Tobacco Use ??? [...] (LIPITOR) 40 mg, Enteral Tube, DAILY ??? cetirizine (ZYRTEC) 10 mg, Enteral Tube, DAILY ??? cloBAZam (ONFI) 20 mg, Enteral Tube, 2 TIMES DAILY ??? cloBAZam (ONFI) 20 mg, Enteral Tube, 2 TIMES DAILY ??? divalproex sprinkle (DEPAKOTE SPRINKLE) 500 mg, Enteral Tube, EVERY 6 HOURS ??? divalproex sprinkle (DEPAKOTE SPRINKLE) 500 mg, Enteral Tube, EVERY 6 HOURS ??? docusate sodium (COLACE) 150 mg, Oral, DAILY PRN ??? enoxaparin (LOVENOX) 40 mg, Subcutaneous, DAILY ??? fluticasone propionate (Flonase) 50 MCG/ACT nasal spray 1 spray, Each Nostril, DAILY ??? folic acid (FOLVITE) 1 mg, Enteral Tube, DAILY ??? guaiFENesin (Robitussin) 100 MG/5ML solution 10 mL, Enteral Tube, EVERY 6 HOURS ??? lacosamide (VIMPAT) 200 mg, Enteral Tube, 2 TIMES DAILY ??? lacosamide (VIMPAT) 200 mg, Enteral Tube, 2 TIMES DAILY ??? levalbuterol (XOPENEX) 1.25 mg, Inhalation, EVERY 8 HOURS PRN ??? levETIRAcetam (KEPPRA) 2,000 mg, Enteral Tube, 2 TIMES DAILY ??? levETIRAcetam (KEPPRA) 2,000 mg, Enteral Tube, 2 TIMES DAILY ??? Nayzilam 5 mg, Nasal, PRN ??? Nayzilam 5 mg, Nasal, PRN ??? scopolamine (Transderm-Scop) 1 MG patch 1 patch, Transdermal, EVERY 72 HOURS ??? senna-docusate (Senokot-S) 8.6-50 MG tablet 1 tablet, Enteral Tube, 2 TIMES DAILY ??? tamsulosin (FLOMAX) 0.4 mg, Oral, DAILY, At the same time every day after a meal. Please make sure it is via enteral tube. ??? thiamine (VITAMIN B-1) 100 mg, Enteral Tube, DAILY Review of Systems positives are in bold; negatives are in italics Unable to obtain 2/2 mental status Constitutional: fevers, chills, sweats, fatigue, weight loss/gain, chronic pain HEENT: head trauma, vision/hearing/voice changes, eye/ear/throat pain, nasal discharge, dysphagia, sores, ulcers, sinus pain Respiratory: cough, hemoptysis, sputum, [place], dyspnea at rest, PND, wheezing Cardiovascular: chest pain/discomfort, palpitations, lower extremity edema, calf/leg pain Gastrointestinal: nausea/vomiting, diarrhea, constipation, melena, abdominal pain Genitourinary: dysuria, urgency, frequency, incontinence, hematuria Integument: rash, ulcers, itching Hematologic/lymphatic: easy bruising, bleeding Musculoskeletal: myalgias, arthralgias Neurological: headaches, dizziness, numbness, tingling, seizures Behavioral/Psych: anxiety, depression, memory problems Endocrine: polyuria, polydipsia, polyphagia, heat/cold intolerance Objective: Vitals: 11/26/22 1430 11/26/22 1445 11/26/22 1500 11/26/22 1530 BP: (!) 154/103 115/82 (!) 135/102 (!) 157/103 Pulse: 105 104 103 104 Resp: 12 12 12 12 Temp: SpO2: 100% 100% 100% 100% Weight: Height: Intake/Output Summary (Last 24 hours) at 11/26/2022 1616 Last data filed at 11/26/2022 1314 Gross per 24 hour Intake 450 ml Output 5225 ml Net -4775 ml S RR: 14 bpm S VT: 500 ML PEEP/CPAP: 5 cm H20 O2 %: 50 % Physical Exam General - Sedated. No acute distress. Does not respond to verbal stimuli. HEENT - NC/AT, Pupils equal and reactive to light. Nasal balloon in place R nostril. Neck - Trachea midline Chest - Coarse breath sounds with expiratory wheezing bilaterally. CV - Tachycardic rate, regular rhythm. No murmurs or gallops. Abdomen - Soft, non-distended. PEG tube in place without surrounding erythema. Musculoskeletal - Does not move extremities. Extremities - No lower extremity edema in RLE. Evidence of well healed AKA on LLE. Skin - No rashes, lesions or jaundice Neurologic - A&O x 0. Does not withdrawal to pain. Psych - Unable to assess Labs: CBC: Recent Labs Component Name 11/26/22 0310 11/24/22 2347 11/04/22 0633 WBC 12.7* 12.7* 10.5 7.4 HGB 12.5 12.5 11.5* 14.2 HCT 37.9 37.9 35.9 44.4 BMP: Recent Labs Component Name 11/26/22 0310 11/25/22 0335 11/04/22 0633 11/01/22 0644 NA 140 138 136 139 CL 108* 108* 106 106 CO2 26 26 24 27 BUN 11 16 14 14 CREATININE 0.46* 0.45* 0.47* 0.51* CALCIUM 10.0 9.5 9.7 9.6 PHOS 3.4 - 3.0 3.2 Hepatic: Recent Labs Component Name 11/26/22 0310 11/25/22 0335 11/04/22 0633 10/09/22 1204 ALT - 24 27 10 AST - 24 25 15 TBILI - 0.2 0.2 0.1* PROT - 6.9 7.7 6.9 ALB 2.6* 2.6* 2.9* 3.0* ALKPHOS - 85 124 83 Coagulation: Recent Labs Component Name 08/28/22 2224 06/27/22 2215 05/11/22 1309 PT 15.2* 12.8 13.5 INR 1.2 1.0 1.0 Cardiac Markers: Recent Labs Component Name 07/11/22 0040 07/01/22 1634 06/28/22 0141 06/27/22 2215 05/30/22 1750 03/08/22 1455 12/31/21 0412 CKTOTAL 49 42 - - - - 77 TROPONINI - - <0.010 <0.010 <0.010 - - - = values in this interval not displayed. ABGs: No results for input(s): PHART, PO2ART, QWD0ZGD, BEART in the last 28727 hours. Micro: Pending Imaging: Imaging reviewed. Assessment: History of CVA (cerebrovascular accident) (POA: Yes) Seizure disorder (CMS/HCC) (POA: Yes) Acute on chronic respiratory failure with hypoxia (CMS/HCC) (POA: Yes) Protein-calorie malnutrition, unspecified severity (CMS/HCC) (POA: Yes) Sinus tachycardia (POA: Unknown) Dementia, vascular (CMS/HCC) (POA: Yes) Nasal polyp (POA: Yes) Hemoptysis (POA: Yes) Acute blood loss anemia (POA: Yes) PEG (percutaneous endoscopic gastrostomy) status (CMS/HCC) (POA: Yes) Tracheostomy in place (CMS/HCC) (POA: Yes) PLAN: Neurological: #History of CVA c/b Left Sided Deficits #Dementia #Seizure Disorder -??Home Meds: ASA 81mg, Atorvastatin 40mg, Clobazam 20mg BID, Depakote 500mg q6h, Lacosamide 200 BID, Midazolam 5mg nasal spray PRN - Prior history of stroke c/b left sided weakness, inability to communicate/interact to significantdegree, and seizures -BL mentation poor, does not interact can squeeze R hand on command at BL PLAN: - Hold home ASA given bleeding - Continue other home medications #Sedation -Wean Propofol -Fentanyl 50mcg prn 1hr -Rass score 0 to -1 Cardiovascular: #Intraoperative Ventricular Tachycardia A: -Noted to have 2-3 min of V tach during ENT surgery -Spontaneously converted -No rhythm strips of event for review, unclear if this was truly V tach -EKG upon MICU sinus tach P: -Appreciate cardiology recommendations -Echo ordered -Troponin pending -Wean propofol as QTc prolonging -Start Amio bolus with gtt if has additional Vtach -Aggressive lytes; K>4 Mg>2 Ca 8 MAP goal - 65 mmHg #Hypertension -??Has documented history, although no BP meds as outpatient PLAN: - CTM BP trends, consider agent if hypertensive and no discomfort #PVD s/p Left AKA - Home Meds: Statin + ASA PLAN: - Cont statin - Hold ASA given bleeding Pulmonary: #AoC Hypoxic Respiratory Failure s/p tracheostomy #Antrochoanal Polyp c/b bleeding A: -Placement of tracheostomy in 06/2022 during admission for aspiration PNA -BL 4-5L via trach collar -Developed acute hypoxia after suctioning at LTAC with note of blood -ENT determined polyp as source of bleed -Home Meds: Scopolamine Patch q3days, Guaifenesin 10mL q6h, Levalbuterol Neb PRN P: -Appreciate ENT recs; planned for polyp removal, however, procedure aborted 2/ v tach run -Intubated, levalbuterol q4hr -CXR pending -Procal pending -Cont Home guaifenesin -Suctioning & levalbuterol q4hr -Hold scopolamine until ENT recommends resuming SpO2 goal - 90 GI: #Dysphagia s/p PEG Placement #Severe Protein Calorie Malnutrition - Dependent on PEG for medical nutrition PLAN: - holding TF in event patient needs additional surgical intervention 2/2 bleeding Renal: No SAMANTHA, no electrolyte abnormalities #BPH - Continue home tamsulosin 0.4mg Endocrine: BGM goal 140-180 mg/dL -accuchecks q4hr ID: #Leukocytosis A: -Likely reactive, however CT chest with trace amount of debris in R main bronchus (imporved from prior) -MRSA positive this admission -Sputum cx from 09/18 with pseudomonas and acinetobacter baumannii with multiple resistances, however, no treatment pursued and sxs resolved spontaneously P: -CXR and procal pending -CTM CBC Heme/Onc: #Tracheal Bleeding A: -likely 2/2 Antrochoanal polyp bleeding -Noted to have bleeding post operatively coming from nasopharynx -Hgb 12 upon arrival to MICU P: -Appreciate ENT recs -Keep tracheostomy cuff inflated to prevent aspiration of blood -Maintain epistat -Afrin at bedside, use PRN -CBC daily FEN: -Monitor electrolytes QD, Replace K<4, Mg<2, Phos<3 Lines: Type: ETT, Jensen, PEG tube, PIV Prophylaxis: Aspiration precautions w/ HOB elevation by 30 degrees GI prophyalxis w/ famotidine DVT prophyalxis w/ SCDs, hold chemical ppx due to active bleed Diet: NPO Activity: Bedrest Disposition: ICU Monitoring Code Status: FULL Naa Ferrera DO Associated attestation - Elmo Ozuna MD - 11/27/2022 2:47 AM CDT Medical ICU Attending Note Date of Service: 11/26 I have seen and examined the patient with the resident. I agree with the resident/fellow note except for the following additions/corrections. In brief, Mojgan Tabor is a 62 year old male admitted to the ICU for postoperative management following a ENT procedure for this bleeding tracheostomy. Patient has a past medical history of undergoing a trach and PEG due to chronic respiratory failure following a CVA stroke with left-sided deficits. Patient was initially admitted to the hospital from the LTAC bleeding from the tracheostomy site. Patient was taken to the OR and the patient had a run of V-tach on the dye weigher helper therefore this procedure was aborted. Patient did not have any intervention to cover the back to normal sinus rhythm. Upon arrival to the ICU the patient heart rate of 120s and blood pressure in the 170 he has had back to his baseline. Allergies: Allergies Allergen Reactions Clonazepam Psychiatric hallucinations Past Medical History: Diagnosis Date CVA (cerebral vascular accident) (CMS/HCC) HTN (hypertension) Seizure (CMS/HCC) Past Surgical History: Procedure Laterality Date ENDOSCOPY, UPPER N/A 03/25/2022 N/A; ESOPHAGOGASTRODUODENOSCOPY (EGD) DIAGNOSTIC with PEG Placement ENT SURGERY N/A 07/15/2022 N/A; TRANSCERVICAL ZENKERS DIVERTICULECTOMY, OPEN TRACHEOSTOMY Leg Amputation, Below Knee Left 03/15/2022 Left; LEFT BKA POSS AKA Social Hx: Social History Socioeconomic History Marital status: Single Spouse name: Not on file Number of children: Not on file Years of education: Not on file Highest education level: Not on file Occupational History Not on file Tobacco Use Smoking status: Former Packs/day: 1.00 Years: 15.00 Pack years: 15.00 Types: Cigarettes Smokeless tobacco: Never Vaping Use Vaping Use: Never used Substance and Sexual Activity Alcohol use: No Comment: last drink 2015 Drug use: No Comment: occasional Sexual activity: Not Currently Other Topics Concern Not on file Social History Narrative Not on file Social Determinants of Health Financial Resource Strain: Unknown (08/29/2022) Overall Financial Resource Strain (CARDIA) Difficulty of Paying Living Expenses: Patient refused Food Insecurity: No Food Insecurity (08/29/2022) Hunger Vital Sign Worried About Running Out of Food in the Last Year: Never true Ran Out of Food in the Last Year: Never true Transportation Needs: No Transportation Needs (08/29/2022) PRAPARE - Transportation Lack of Transportation (Medical): No Lack of Transportation (Non-Medical): No Stress: No Stress Concern Present (08/29/2022) [employer] [place] [employer] - Occupational Stress Questionnaire Feeling of Stress : Not at all Housing Stability: Low Risk (08/29/2022) Housing Stability Vital Sign Unable to Pay for Housing in the Last Year: No Number of Places Lived in the Last Year: 1 Unstable Housing in the Last Year: No Family History: No family history on file. No current facility-administered medications on file prior to encounter. Current Outpatient Medications on File Prior to Encounter Medication Sig Dispense Refill acetaminophen (Tylenol) 500 MG tablet 1 (one) tablet by Enteral [...] tablet by Enteral Tube route once daily cetirizine (ZyrTEC) 10 MG tablet 1 (one) tablet by Enteral Tube route once daily cloBAZam (Onfi) 20 MG tablet 1 (one) tablet by Enteral Tube route 2 times daily 60 tablet 5 cloBAZam (Onfi) 20 MG tablet 1 (one) tablet by Enteral Tube route 2 times daily 14 tablet 0 divalproex sprinkle (Depakote Sprinkle) 125 MG capsule 4 (four) capsules by Enteral Tube route every 6 hours 480 capsule 11 divalproex sprinkle (Depakote Sprinkle) 125 MG capsule 4 (four) capsules by Enteral Tube route every 6 hours 108 capsule 0 docusate sodium (Colace) 150 MG/15ML solution Take 15 mL by mouth once daily as needed for Constipation enoxaparin (Lovenox) 40 MG/0.4ML injection Inject 40 (forty) mg subcutaneously once daily fluticasone propionate (Flonase) 50 MCG/ACT nasal spray [place] 1 (one) spray into each nostril once daily folic acid (Folvite) 1 MG tablet 1 (one) tablet by Enteral Tube route once daily guaiFENesin (Robitussin) 100 MG/5ML solution 10 mL by Enteral Tube route every 6 hours lacosamide (Vimpat) 200 MG tablet 1 (one) tablet by Enteral Tube route 2 times daily 60 tablet 5 lacosamide (Vimpat) 200 MG tablet 1 (one) tablet by Enteral Tube route 2 times daily 14 tablet 0 levalbuterol (Xopenex) 1.25 MG/3ML nebulizer solution Inhale 3 mL by mouth every 8 hours as needed for Shortness of Breath or Wheezing levETIRAcetam (Keppra) 1000 MG tablet 2 (two) tablets by Enteral Tube route 2 times daily 120 tablet 11 levETIRAcetam (Keppra) 1000 MG tablet 2 (two) tablets by Enteral Tube route 2 times daily 28 tablet0 midazolam (Nayzilam) 5 MG/0.1ML nasal spray [place] 0.1 mL into the nose as needed for Seizures 1 Each 5 midazolam (Nayzilam) 5 MG/0.1ML nasal spray [place] 0.1 mL into the nose as needed for Seizures 1 Each 0 scopolamine (Transderm-Scop) 1 MG patch Apply 1 (one) patch to skin every 3 days senna-docusate (Senokot-S) 8.6-50 MG tablet 1 (one) tablet by Enteral Tube route 2 times daily tamsulosin (Flomax) 0.4 MG capsule Take 1 (one) capsule by mouth once daily At the same time every day after a meal. Please make sure it is via enteral tube. thiamine (Vitamin B-1) 100 MG tablet 1 (one) tablet by Enteral Tube route once daily Physical Exam: BP (!) 181/117 Pulse (S) (!) 140 Comment: MICU 1 made aware. NNO Temp 97.3 ??F (36.3 ??C) (Axillary) Resp 12 Ht 1.778 m (5' 10 ) Wt 69.9 kg (154 lb 1.6 oz) SpO2 98% General - Sedated. No acute distress. Does not respond to verbal stimuli. HEENT - NC/AT, Pupils equal and reactive to light. Nasal balloon in place R nostril. Neck - Trachea midline Chest - Coarse breath sounds with expiratory wheezing bilaterally. CV - Tachycardic rate, regular rhythm. No murmurs or gallops. Abdomen - Soft, non-distended. PEG tube in place without surrounding erythema. Musculoskeletal - Does not move extremities. Extremities - No lower extremity edema in RLE. Evidence of well healed AKA on LLE. Skin - No rashes, lesions or jaundice Neurologic - A&O x 0. Does not withdrawal to pain. Data: Laboratory Results: Recent Labs Component Name 11/26/22 1840 11/26/22 0310 11/24/22 2347 WBC 17.4* 12.7* 12.7* 10.5 HGB 12.5 12.5 12.5 11.5* HCT 37.2 37.9 37.9 35.9 PLTCOUNT 244 194 194 225 Recent Labs Component Name 08/28/22 2224 06/27/22 2215 05/11/22 1309 PT 15.2* 12.8 13.5 Recent Labs Component Name 08/28/22 2224 06/27/22 2215 05/11/22 1309 INR 1.2 1.0 1.0 Recent Labs Component Name 11/26/22 1840 11/26/22 0310 11/25/22 0335 11/04/22 0633 POTASSIUM 4.2 4.0 4.5 4.0 CO2 19* 26 26 24 BUN 10 11 16 14 CREATININE 0.41* 0.46* 0.45* 0.47* GLUCOSE 120* 91 91 98 CALCIUM 9.8 10.0 9.5 9.7 PHOS 3.5 3.4 - 3.0 Recent Labs Component Name 11/26/22 1840 11/26/22 0310 11/25/22 0335 MAGNESIUM 2.1 1.6 1.7 Recent Labs Component Name 11/25/22 0335 11/04/22 0633 10/09/22 1204 ALKPHOS 85 124 83 ALT 24 27 10 AST 24 25 15 Recent Labs Component Name 07/11/22 0040 07/01/22 1634 06/28/22 0141 06/27/22 2215 05/30/22 1750 03/08/22 1455 12/31/21 0412 CKTOTAL 49 42 - - - - 77 TROPONINI - - <0.010 <0.010 <0.010 - - - = values in this interval not displayed. ABG: Recent Labs Component Name 11/26/22 2041 11/26/22 1840 10/09/22 1204 [id number] 26.1 25.3 26.6 FIO2 30.0 30.0 35.0 I have personally reviewed the pertient labs and imaging. History of CVA (cerebrovascular accident) (POA: Yes) Seizure disorder (CMS/HCC) (POA: Yes) Acute on chronic respiratory failure with hypoxia (CMS/HCC) (POA: Yes) Protein-calorie malnutrition, unspecified severity (CMS/HCC) (POA: Yes) Sinus tachycardia (POA: Unknown) Dementia, vascular (CMS/HCC) (POA: Yes) Nasal polyp (POA: Yes) Hemoptysis (POA: Yes) Acute blood loss anemia (POA: Yes) PEG (percutaneous endoscopic gastrostomy) status (CMS/HCC) (POA: Yes) Tracheostomy in place (CMS/HCC) (POA: Yes) V-tach (CMS/HCC) (POA: No) Plan: Patient is a 62-year-old male who with who is chronically trached and pegged admitted to the MICU for postoperative management following a a V-tach run for aborted ENT procedure. Intraoperative Ventricular Tachycardia -Appreciate cardiology recommendations -Echo ordered -Troponin pending -Wean propofol as QTc prolonging -Start Amio bolus with gtt if has additional AoC Hypoxic Respiratory Failure s/p tracheostomy and antrochoanal Polyp c/b bleeding -Appreciate ENT recs; planned for polyp removal, however, procedure aborted / v tach run -Intubated, levalbuterol q4hr -CXR pending -Procal pending -Cont Home guaifenesin Suctioning & levalbuterol q4hr Tracheal Bleeding -Appreciate ENT recs -Keep tracheostomy cuff inflated to prevent aspiration of blood -Maintain epistat -Afrin at bedside, use PRN Dispo: ICU for continued level care Code status: Full Critical Care Time: 34 Pt. is at high risk for complications [...] discussion is necessary for determining treatment decisions. Elmo Ozuna MD Test Facility Engineer of Emergency Medicine Division of Pulmonary, Critical Care and Sleep Medicine [facility] * Ward Wyatt MD - 11/26/2022 3:31 PM CDT CARDIOLOGY CONSULTATION NOTE Patient: Mojgan Tabor Age: [age] year old Date of : 1960 Date of Admission: 11/24/2022 Date: 11/26/2022 Reason for consult: V tach during surgery HISTORY: 62 yo male with a hx of??R. Occipital stroke (2014), head injury, seizures, Alzheimer's, RLE amputation, refractory epilepsy, dysphasia w/PEG tube placement on 03/25/22??previously with recurrent aspirations now s/p transcervical Zenker's diverticulectomy, tracheostomy 07/15/22??(). ?? Patient sent to ED from facility 07/01 tracheal and oral bleeding. Also patient found to have R bronchial occulusion on CXR s/p bronch at bedside with suctioning/lavage. ?? He was undergoing surgery for removal of right nasal cavity today. After first polyp removal patient apparently went to [facility], rate in 280s, no strips, not known if monomorphic or polymorphic, apparently patient did not lose pulse and after 2-3 minutes converted to sinus tachycardia which his baseline, no shock or chest compressions. He was on propofol for anesthesia. Cardiology consulted for this episode, however no strips to see, EKG with sinus tach. Patient at baseline mentation. Resting comfortably in bed. PAST MEDICAL HISTORY: He has a past medical history of CVA (cerebral vascular accident) (CMS/[facility]), HTN (hypertension), and Seizure (CMS/[facility]). PAST SURGICAL HISTORY: His has a past surgical history that includes leg amputation, below knee (Left, 03/15/2022); endoscopy, upper (N/A, 03/25/2022); and ent surgery (N/A, 07/15/2022). FAMILY HISTORY: His family history is not on file. He has no family status information on file. SOCIAL HISTORY: He reports that he has quit smoking. His smoking use included cigarettes. He has a 15.00 pack-year smoking history. He has never used smokeless tobacco. He reports that he does not drink alcohol and does not use drugs. ALLERGIES: Allergies Allergen Reactions ??? Clonazepam Psychiatric hallucinations HOME MEDICATIONS: Medications Prior to Admission Medication Sig Dispense Refill ??? acetaminophen (Tylenol) 500 MG tablet 1 (one) tablet by Enteral [...] by Enteral Tube route once daily ??? cetirizine (ZyrTEC) 10 MG tablet 1 (one) tablet by Enteral Tube route once daily ??? cloBAZam (Onfi) 20 MG tablet 1 (one) tablet by Enteral Tube route 2 times daily 60 tablet 5 ??? cloBAZam (Onfi) 20 MG tablet 1 (one) tablet by Enteral Tube route 2 times daily 14 tablet 0 ??? divalproex sprinkle (Depakote Sprinkle) 125 MG capsule 4 (four) capsules by Enteral Tube route every 6 hours 480 capsule 11 ??? divalproex sprinkle (Depakote Sprinkle) 125 MG capsule 4 (four) capsules by Enteral Tube route every 6 hours 108 capsule 0 ??? docusate sodium (Colace) 150 MG/15ML solution Take 15 mL by mouth once daily as needed for Constipation ??? enoxaparin (Lovenox) 40 MG/0.4ML injection Inject 40 (forty) mg subcutaneously once daily ??? fluticasone propionate (Flonase) 50 MCG/ACT nasal spray [place] 1 (one) spray into each nostril once daily ??? folic acid (Folvite) 1 MG tablet 1 (one) tablet by Enteral Tube route once daily ??? guaiFENesin (Robitussin) 100 MG/5ML solution 10 mL by Enteral Tube route every 6 hours ??? lacosamide (Vimpat) 200 MG tablet 1 (one) tablet by Enteral Tube route 2 times daily 60 tablet 5 ??? lacosamide (Vimpat) 200 MG tablet 1 (one) tablet by Enteral Tube route 2 times daily 14 tablet 0 ??? levalbuterol (Xopenex) 1.25 MG/3ML nebulizer solution Inhale 3 mL by mouth every 8 hours as needed for Shortness of Breath or Wheezing ??? levETIRAcetam (Keppra) 1000 MG tablet 2 (two) tablets by Enteral Tube route 2 times daily 120 tablet 11 ??? levETIRAcetam (Keppra) 1000 MG tablet 2 (two) tablets by Enteral Tube route 2 times daily 28 tablet 0 ??? midazolam (Nayzilam) 5 MG/0.1ML nasal spray [place] 0.1 mL into the nose as needed for Seizures 1Each 5 ??? midazolam (Nayzilam) 5 MG/0.1ML nasal spray [place] 0.1 mL into the nose as needed for Seizures 1Each 0 ??? scopolamine (Transderm-Scop) 1 MG patch Apply 1 (one) patch to skin every 3 days ??? senna-docusate (Senokot-S) 8.6-50 MG tablet 1 (one) tablet by Enteral Tube route 2 times daily ??? tamsulosin (Flomax) 0.4 MG capsule Take 1 (one) capsule by mouth once daily At the same time every day after a meal. Please make sure it is via enteral tube. ??? thiamine (Vitamin B-1) 100 MG tablet 1 (one) tablet by Enteral Tube route once daily CURRENT MEDICATIONS: ??? 0.9% NaCl 3 mL Intracatheter q8h ??? albuterol-ipratropium 3 mL Inhalation post-OP multiple ??? artificial tears Each Eye q8h ??? atorvastatin 40 mg Enteral Tube AT BEDTIME ??? cloBAZam 20 mg Enteral Tube BID ??? divalproex sprinkle 500 mg Enteral Tube q6h ??? folic acid 1 mg Enteral Tube QDAY ??? guaiFENesin 10 mL Enteral Tube q6h ??? iopamidol Intravenous Contrast - Once ??? lacosamide 200 mg Enteral Tube BID ??? levETIRAcetam 2,000 mg Enteral Tube BID ??? naloxone 0.04 mg Intravenous post-OP multiple ??? senna-docusate 1 tablet Enteral Tube BID ??? [START ON 11/27/2022] tamsulosin 0.4 mg Enteral Tube QDAY ??? thiamine 100 mg Enteral Tube QDAY lactated ringers, , Last Rate: 125 mL/hr at 11/26/22 0912 propofol, 0-50 mcg/kg/min, Last Rate: 25 mcg/kg/min (11/26/22 1315) REVIEW OF SYSTEMS: Review of Systems: not done as patient is not awake PHYSICAL EXAM: Intake/Output Summary (Last 24 hours) at 11/26/2022 1532 Last data filed at 11/26/2022 1314 Gross per 24 hour Intake 450 ml Output 5225 ml Net -4775 ml Temp: [97 ??F (36.1 ??C)-98.7 ??F (37.1 ??C)] 97 ??F (36.1 ??C) Pulse: [94-134] 103 Resp: [3-27] 12 BP: (115-170)/(82-126) 135/102 O2 %: [50 %-70 %] 50 % BP (!) 135/102 Pulse 103 Temp 97 ??F (36.1 ??C) (Temporal) Resp 12 Ht 1.778 m (5' 10 ) Wt54.9 kg (121 lb) SpO2 100% General: patient trached, coughing when suctioned Neck: Trach in place Eyes: Anicteric. Non-injected. Chest: Breath sounds decreased on the right side. No increased work of breathing on HFNC. Cardiovascular: Tachycardic, normal S1 and S2. No murmurs, rubs, or gallops Abdomen: Soft. NT/ND. Normal BS+. PEG in place Extremities: No signs of clubbing, cyanosis, or edema. Left leg s/p AKA. Skin: Warm. No edema Neurological: Awakens to stimuli but otherwise not significantly alert. Cough reflex intact when suctioned through trach DATA REVIEWED: LABS: CBC: Recent Labs Component Name 11/26/2230911/24/22 2347 11/04/22 0633 WBC 12.7* 12.7* 10.5 7.4 HGB 12.5 12.5 11.5* 14.2 HCT 37.9 37.9 35.9 44.4 MCV 92.7 92.7 95.7 95.9 Coagulation Panel: Recent Labs Component Name 08/28/224 06/27/22 2215 05/11/22 1309 PT 15.2* 12.8 13.5 INR 1.2 1.0 1.0 BMP: Recent Labs Component Name 11/26/2230911/25/22 0335 11/04/22 0633 NA 140 138 136 CL 108* 108* 106 CO2 26 26 24 BUN 11 16 14 CREATININE 0.46* 0.45* 0.47* CALCIUM 10.0 9.5 9.7 No results for input(s): MG in the last 25564 hours. Recent Labs Component Name 11/26/2230911/04/22 0633 11/01/22 0644 PHOS 3.4 3.0 3.2 Hepatic Panel: Recent Labs Component Name 11/26/2230911/25/22 0335 11/04/22 0633 10/09/22 1204 08/28/22 1251 06/30/22 1039 03/03/18 1745 01/30/18 1255 11/28/17 0455 10/14/17 1349 AST - 24 25 15 - - - ALT - 24 27 10 - 5 - 10 - 9 ALKPHOS - 85 124 83 - 65 - 75 - 86 TBILI - 0.2 0.2 0.1* - 0.3 - 0.4 - 0.6 DBILI - - - - - 0.2 - 0.2 - 0.2 IBILI - - - - - 0.1 - 0.2 - 0.4 ALB 2.6* 2.6* 2.9* 3.0* - 2.2* - 3.7 - 3.9 - = values in this interval not displayed. ABG: Recent Labs Component Name 10/09/22 1204 09/14/22 1208 09/07/22 0941 PH 7.42 7.43 7.44 PCO2 41 45 46* PO2 61* 79* 100 Cardiac Enzymes: Recent Labs Component Name 07/11/22 0040 07/01/22 1634 06/28/22 0141 06/27/22 2215 05/30/22 1750 CKTOTAL 49 - - - - TROPONINI - - <0.010 <0.010 <0.010 - = values in this interval not displayed. Lipid Panel: Recent Labs Component Name 04/11/15 0622 LDLCALC 102* HDL 81 ASSESSMENT & PLAN: // Casandra-operative V tach (no strips, never lost pulse, no need for shock, no chest compression, spontaneously came back to sinus tachycardia) // CVA s/p trach and PEG //Epilepsy //RLE amputation -Please obtain TTE -Please strictly monitor on telemetry -Please ensure K at 4, Mg at 2 and Ca at 8 Recommendations are not final unless attested by Attending Manager [employer] Dining. Thank you for your consultation and please do not hesitate to contact us with any question or concern. Ward Wyatt MD PGY-4 [employer] Associated attestation - Ryanne Harden MD - 11/27/2022 9:14 PM CDT ATTENDING PHYSICIAN NOTE Patient seen and examined with the resident. I confirm the history, exam, assessment and plan. In addition I note: Chief complaint: NSVT. History: history of R occipital stroke with L sided residual deficits, HTN, Seizure d/o, Alzheimers, PVD s/p R BKA, Dysphasia s/p PEG tube placement (02/2022) and recurrent aspirations now s/p transcervical Zenker's diverticulotomy and tracheostomy (07/15/22) that presented to there ER on 11/25/22 found to have blood from tracheostomy tube on suction noted at LTAC (suction was performed in the setting of congestion noted by nurses). He had a CT done with R trace bronchial debris. There was complete opacification of the R maxillary sinus. ENT evaluated the patient and he underwent laryngoscopy and nasal endoscopy with right bronchial occlusion with purulence and clot which was suctioned with improvement and left upper bronchus with continued purulence. No kate bleeding in oral cavity noted.There was a R antrochoanal polyp that occluded the R nasal cavity and R half of the choana. Bleeding was noted, afrin was applied with some resulotion but not completely resolved. Given tenuous respiratory status, ENT decided to take patikent to OR on 11/26 for removal of polyp which was completed. Procedure was complicated by Vtach on table. There was no loss of pulse, Vtach resolved and patient reverted back to NSR spontaneously. A code was called at the time. The operative note suggests that the entirety of the rhythm was less than 2 minutes with weak pulses noted. Case was aborted there after. Cardiology consultation requested. Patient has since been tachycardiac and hypertensive, currently on an esmolol and nicardipine gtt. Primary team is consulting cardiology to evaluate the NSVT rhythm and to help manage underlying HTN. No CP or SOB. ECG with AMI. CXR with hyperexpansion and left > right pleural effusions. Mild decompensated heart failure. ECHO 08/2022. Good LV function and satisfactory valve function., Social History Socioeconomic History Marital status: Single Tobacco Use Smoking status: Former Packs/day: 1.00 Years: 15.00 Pack years: 15 Types: Cigarettes Smokeless tobacco: Never Vaping Use Vaping Use: Never used Substance and Sexual Activity Alcohol use: No Comment: last drink 2016 Drug use: No Comment: occasional Sexual activity: Not Currently family history is not on file. -- Clonazepam -- Psychiatric -- hallucinations Past Medical History: No date: CVA (cerebral vascular accident) (CMS/HCC) No date: HTN (hypertension) No date: Seizure (CMS/HCC) A full 12 point review of systems was performed and was otherwise negative besides what was mentioned in the HPI. Exam: BP 128/99 Pulse 108 Temp 99.5 ??F (37.5 ??C) (Axillary) Resp 12 Ht 5' 10 Wt 154 lb1.6 oz SpO2 99% NAD. HEENT: neck supple. Atraumatic. Cor: RRR. JVD. S4 no murmur. No S3 Resp: rales bilaterally. GI: soft. NT. Ext: no edema Medications were reviewed; please see the resident's note for complete list. Data Review: pertinent lab and cardiac data reviewed Lab Results: Recent Labs Component Name 11/27/228 11/26/22 1840 11/26/22 0310 WBC 15.4* 17.4* 12.7* 12.7* HGB 12.4 12.5 12.5 12.5 HCT 37.2 37.2 37.9 37.9 PLTCOUNT 260 244 194 194 Recent Labs Component Name 11/27/228 11/26/22 1840 11/26/22 0310 POTASSIUM 4.2 4.2 4.0 CO2 22 19* 26 BUN 8 10 11 CREATININE 0.45* 0.41* 0.46* GLUCOSE 115 120* 91 CALCIUM 9.7 9.8 10.0 Recent Labs Component Name 08/28/22 2224 06/27/22 2215 05/11/22 1309 INR 1.2 1.0 1.0 PT 15.2* 12.8 13.5 Recent Labs Component Name 11/25/22 0335 11/04/22 0633 10/09/22 1204 ALKPHOS 85 124 83 ALT 24 27 10 AST 24 25 15 Recent Labs Component Name 11/27/22 1542 07/04/22 0145 06/12/22 0337 TSH 1.790 1.955 2.755 No results for input(s): CKMB, TROPONIN, MYOGLOBIN in the last 04511 hours. Recent Labs Component Name 11/27/22 0328 11/26/22 2041 11/26/22 1840 [id number] 25.5 26.1 25.3 FIO2 25.0 30.0 30.0 Recent Labs Component Name 07/07/22 0345 04/11/15 0622 CHOL - 196 HDL - 81 TRIG 102 63 LDLCALC - 102* ECG reviewed: STACH, SMI, AU, long QT. CXR reviewed: CM and effusions. Assessment/Plan: NSVT. History: history of R occipital stroke with L sided residual deficits, HTN, Seizure d/o, Alzheimers, PVD s/p R BKA, Dysphasia s/p PEG tube placement (02/2022) and recurrent aspirations now s/p transcervical Zenker's diverticulotomy and tracheostomy (07/15/22) that presented to there ER on 11/25/22 found to have blood from tracheostomy tube on suction noted at LTAC (suction was performed in the setting of congestion noted by nurses). He had a CT done with R trace bronchial debris. There was complete opacification of the R maxillary sinus. ENT evaluated the patient and he underwent laryngoscopy and nasal endoscopy with right bronchial occlusion with purulence and clot which was suctioned with improvement and left upper bronchus with continued purulence. No kate bleeding in oral cavity noted.There was a R antrochoanal polyp that occluded the R nasal cavity and R half of the choana. Bleeding was noted, afrin was applied with some resulotion but not completely resolved. Given tenuous respiratory status, ENT decided to take patikent to OR on 11/26 for removal of polyp which was completed. Procedure was complicated by Vtach on table. There was no loss of pulse, Vtach resolved and patient reverted back to NSR spontaneously. A code was called at the time. The operative note suggests that the entirety of the rhythm was less than 2 minutes with weak pulses noted. Case was aborted there after. Cardiology consultation requested. Patient has since been tachycardiac and hypertensive, currently on an esmolol and nicardipine gtt. Primary team is consulting cardiology to evaluate the NSVT rhythm and to help manage underlying HTN. No CP or SOB. ECG with AMI. CXR with hyperexpansion and left > right pleural effusions. Mild decompensated heart failure. ECHO 08/2022. Good LV function and satisfactory valve function., Repeat ECHO pending. ECG with old AK. Follow status, weight, vitals and edema, Titrate meds prn. Keep K > 4, Mg > 2, SaO2 > 92% and Hgb > 9. Please see the resident's note for further details. Ryanne Harden MD, F.A.C.C. deli manager 11/27/2022 9:06 PM * Melany Macias MD - 11/25/2022 3:25 PM CDT [facility] General Internal Medicine History & Physical 11/25/2022 at 3:46 PM Patient Name: Mojgan Tabor (62 year old) Room Number: AC13/AC13 Chief Complaint Patient presents with ??? HEMOPTYSIS Pt BIBEMS due to blood noted while suctioning patient trach. HPI: History was obtained from the patient's facility and the medical chart. Mojgan Tabor is a 62 year old male w/PMHx significant for prior CVA c/b left- sided residual deficits, seizure disorder, dementia, dysphagia w/ recurrent aspiration s/p PEG, zenker divertiuculum s/p diverticulectomy 2022, chronic hypoxic respiratory faiure s/p trach 06/2022, PVD s/p L AKA, and HTN who [facility]) for acute on chronic hypoxic respiratory failure and evaluation of bleeding from tracheostomy. Per discussions with nursing staff at LTAC had been in his normal state of health all day yesterday until the evening; HR 90s-100s, SpO2 in mid to high 90s on 4- 5L via trach collar, no discernable clinical issues. Towards end of nursing shift sounded somewhat more congested without change in respiratory status; nurse went to suction patient and had kate blood return prompting transfer to [facility]. Per their report, had not had issues with fever, chills, expressions of pain, or any VS changes prior to initiation of transfer. On arrival to [facility] VS notable for HR to 110s, AF, and SpO2 requiring HFNC to maintain at appropriatevalues. Initial labs notable for Hgb 11.5 (14.2 at DC on 6/8), no leukocytosis or abnormal differential. CT chest noting trace amount of debris in the right main bronchus improved from prior exam w/additional improvement in atelectasis of the right lung. CT sinus with complete opacification of th right maxillary sinus, new complete opacification of the right mastoid air cells and the right middleear cavity, raising possibility of obstruction of the right eustachian tube. ENT consulted who assisted with hemostasis and started on antibiotics for possible pneumonia. Admitted to medicine for further evaluation. Review of Systems: Unable to assess given patient's baseline mentation Past Medical and Surgical History Past Medical History: Diagnosis Date ??? CVA (cerebral vascular accident) (CMS/HCC) ??? HTN (hypertension) ??? Seizure (CMS/HCC) Past Surgical History: Procedure Laterality Date ??? ENDOSCOPY, UPPER N/A 03/25/2022 N/A; ESOPHAGOGASTRODUODENOSCOPY (EGD) DIAGNOSTIC with PEG Placement ??? ENT SURGERY N/A 07/15/2022 N/A; TRANSCERVICAL ZENKERS DIVERTICULECTOMY, OPEN TRACHEOSTOMY ??? Leg Amputation, Below Knee Left 03/15/2022 Left; LEFT BKA POSS AKA Family History No family history on file. Social History Social History Socioeconomic History ??? Marital status: [...] Social Determinants of Health Financial Resource Strain: Unknown (08/29/2022) Overall Financial Resource Strain (CARDIA) ??? Difficulty of Paying Living Expenses: Patient refused Food Insecurity: No Food Insecurity (08/29/2022) Hunger Vital Sign ??? Worried About Running Out of Food in the Last Year: Never true ??? Ran Out of Food in the Last Year: Never true Transportation Needs: No Transportation Needs (08/29/2022) PRAPARE - Transportation ??? Lack of Transportation (Medical): No ??? Lack of Transportation (Non-Medical): No Stress: No Stress Concern Present (08/29/2022) [employer] - Occupational Stress Questionnaire ??? Feeling of Stress : Not at all Housing Stability: Low Risk (08/29/2022) Housing Stability Vital Sign ??? Unable to Pay for Housing in the Last Year: No ??? Number of Places Lived in the Last Year: 1 ??? Unstable Housing in the Last Year: No Allergies Allergies Allergen Reactions ??? Clonazepam Psychiatric hallucinations Home Medications START taking these medications artificial tears ophthalmic ointment Instill into both eyes every 8 hours ?? divalproex sprinkle 125 MG capsule Commonly known as: Depakote Sprinkle 4 (four) capsules by Enteral Tube route every 6 hours ?? guaiFENesin 100 MG/5ML solution Commonly known as: Robitussin 10 mL by Enteral Tube route every 6 hours ?? levalbuterol 1.25 MG/3ML nebulizer solution Commonly known as: Xopenex Inhale 3 mL by mouth every 8 hours as needed for Shortness of Breath or Wheezing ?? scopolamine 1 MG patch Commonly known as: Transderm-Scop Apply 1 (one) patch to skin every 3 days ?? senna-docusate 8.6-50 MG tablet Commonly known as: Senokot-S 1 (one) tablet by Enteral Tube route 2 times daily ? CONTINUE taking these medications acetaminophen 500 MG tablet Commonly known as: Tylenol 1 (one) tablet by Enteral Tube route every 6 hours as needed Maximum allowable Acetaminophen amount= 4 Grams (4000 mg) / 24 hours. ?? aspirin 81 MG chew tablet Commonly known as: Aspirin ?? atorvastatin 40 MG tablet Commonly known as: Lipitor 1 (one) tablet by Enteral Tube route once daily ?? cetirizine 10 MG tablet Commonly known as: ZyrTEC ?? cloBAZam 20 MG tablet Commonly known as: Onfi 1 (one) tablet by Enteral Tube route 2 times daily ?? docusate sodium 150 MG/15ML solution Commonly known as: Colace ?? enoxaparin 40 MG/0.4ML injection Commonly known as: Lovenox ?? fluticasone propionate 50 MCG/ACT nasal spray Commonly known as: Flonase ?? folic acid 1 MG tablet Commonly known as: Folvite 1 (one) tablet by Enteral Tube route once daily ?? lacosamide 200 MG tablet Commonly known as: Vimpat 1 (one) tablet by Enteral Tube route 2 times daily ?? levETIRAcetam 1000 MG tablet Commonly known as: Keppra 2 (two) tablets by Enteral Tube route 2 times daily ?? Nayzilam 5 MG/0.1ML nasal spray Generic drug: midazolam [place] 0.1 mL into the nose as needed for Seizures ?? tamsulosin 0.4 MG capsule Commonly known as: Flomax Take 1 (one) capsule by mouth once daily At the same time every day after a meal. Please make sure it is via enteral tube. ?? thiamine 100 MG tablet Commonly known as: Vitamin B-1 1 (one) tablet by Enteral Tube route once daily Objective: Vitals Temp: [98.1 ??F (36.7 ??C)] 98.1 ??F (36.7 ??C) Pulse: [94-130] 130 Resp: [7-23] 23 BP: (124-194)/(85-118) 164/105 O2 %: [28 %-40 %] 40 % I/Os Intake/Output Summary (Last 24 hours) at 11/25/2022 1546 Last data filed at 11/25/2022 0930 Gross per 24 hour Intake -- Output 3000 ml Net -3000 ml Physical Exam General: Sitting in bed with HOB elevated. HENT: NC/AT. Dried blood around right nare. Neck: Trach in place. Eyes: Anicteric. Non-injected. Chest: Decreased breath sounds on right side. No increased WOB on HFNC Cardiovascular: Tachycardic; regular rhythm. No murmurs, rubs, or gallops Abdomen: Soft. NT/ND. Normal BS+. PEG in place. Extremities: No signs of clubbing, cyanosis, or edema. Left leg s/p AKA without signs of sores. Skin: Warm. Dry. Neurological: Rouses to verbal stimuli; unable to communicate to significant degree. Can squeeze his right hand but not left. Psych: Unable to fully assess in setting of mentation. Data Review Recent Labs Component Name 06/28/23 2347 11/04/22 0633 11/01/22 0644 03/09/22 0135 03/08/22 1455 WBC 10.5 7.4 6.8 - 20.8* HGB 11.5* 14.2 13.5 - 14.3 HCT 35.9 44.4 42.3 - 42.9 PLATELET - - - - Occasional* PLTCOUNT 225 169 185 - 211 - = values in this interval not displayed. Recent Labs Component Name 11/25/22 0335 POTASSIUM 4.5 CO2 26 BUN 16 CREATININE 0.45* CALCIUM 9.5 ALT 24 AST 24 GLUCOSE 91 Recent Labs Component Name 08/28/22 2224 06/27/22 2215 05/11/22 1309 INR 1.2 1.0 1.0 Recent Labs Component Name 07/11/22 0040 07/01/22 1634 06/28/22 0141 06/27/22 2215 05/30/22 1750 03/08/22 1455 12/31/21 0412 CKTOTAL 49 42 - - - - 77 TROPONINI - - <0.010 <0.010 <0.010 - - - = values in this interval not displayed. Microbiology: Reviewed in [facility] Imaging: Reviewed in [facility] Assessment and Plan: #Acute on Chronic Hypoxic Respiratory Failure s/p Tracheostomy #Antrochoanal Polyp c/b Bleeding #Acute Blood Loss Anemia - Home Meds: Scopolamine Patch q3days, Guaifenesin 10mL q6h, Levalbuterol Neb PRN - s/p placement of tracheostomy in 06/2022 during admission for aspiration pneumonia in setting of poor neurologic status - Per LTAC, baseline is 4-5L via trach collar; current issues developed acutely after suctioning inevening of day of presentation - At this time, most likely etiology of current symptoms is bleeding of antrochoanal polyp 2/2 suctioning attempts at LTAC with passage of blood into lungs as reason for worsened respiratory status - Although he has had numerous episodes of aspiration/HCAP pneumonia, likelihood is lower at this time given acuteness of onset, lack of fever or other clinical signs of infection; imaging notes improvements of lung parenchyma when compared to prior admissions as well - ENT consult in ED, appreciate recs; s/p TXA and surgiflo PLAN: - Will hold on antibiotics at this time given lower concern for infection; if he decompensates can start vancomycin + meropenem as was treated with these during last stay - Never got abx for cultures from 09/18 which were resistant to meropenem - If decompensates to point of requiring ICU, may need pharmacy/ID approval for aggressive agent - Follow-up on additional ENT recs; no acute need for intervention at this time - Will repeat CBC this evening; consented for blood, type and screen already complete - Continue HFNC at this time to maintain SpO2 of 90% or more; wean as tolerated - Continue home guaifenesin - Suctioning + Levalbuterol PRN - Resume scopolamine patch later this week - Unclear last change; presumed 11/23 by LTAC #History of CVA c/b Left Sided Deficits #Dementia #Seizure Disorder - Home Meds: ASA 81mg, Atorvastatin 40mg, Clobazam 20mg BID, Depakote 500mg q6h, Lacosamide 200 BID, Midazolam 5mg nasal spray PRN - Prior history of stroke c/b left sided weakness, inability to communicate/interact to significantdegree, and seizures PLAN: - Hold home ASA given bleeding - Hold home nasal spray as not on formulary - Continue other home medications #Dysphagia s/p PEG Placement - Dependent on PEG for medical nutrition PLAN: - Nutrition consult to assist with feeding needs - Will order TwoCal HN per prior nutrition notes last hospitalization; will reduce FWF given concurrent LR administration #Sinus Tachycardia - HR elevated to 120s; EKG notes sinus tachycardia - Most likely 2/2 hypovolemia (IVF v blood) - s/p LR 500 in ED PLAN: - Additional LR 500mL ordered followed by 125 mL/hr for 12 hours - FWF as above - Management of anemia as above #PVD s/p Left AKA - Home Meds: Statin + ASA PLAN: - As above #Hypertension - Has documented history, although no BP meds as outpatient - Possible acute elevation at this time 2/2 discomfort PLAN: - Hold on addition of new antihypertensives at this time - Management of AoCHRF as above Emergency Decision Maker: Adriane Hilliard (Sister; number in Epic) Prophylaxis: GI - None DVT - Mechanical; hold chemical 2/2 bleeding FEN: DIET NPO WITH TUBE FEEDING Activity: As tolerated Disposition: Inpatient Admission Code Status: Full Code This patient will be discussed with the Attending Dr. Kash Macias MD Internal Medicine, PGY-3 11/25/2022 3:46 PM Associated attestation - Neville Hewitt III, MD - 11/26/2022 8:25 PM CDT I have seen and examined Mojgan Tabor on 11/25/[address] Macias and I agree with the findings and plan of care as documented by the resident. 62 yo with chronic resp failure with new hypoxia. History limited from patient. Per LTAC, had epistaxis. On exam, hypoxic. Chest ct with consolidations in RML; suspect aspiration from epistaxis. Willwork with ENT to control bleeding. Do not see evidence of infection at this time. Continue oxygen support. History of CVA (cerebrovascular accident) (POA: Yes) Seizure disorder (CMS/HCC) (POA: Yes) Acute on chronic respiratory failure with hypoxia (CMS/HCC) (POA: Yes) Protein-calorie malnutrition, unspecified severity (CMS/HCC) (POA: Yes) Sinus tachycardia (POA: Unknown) Dementia, vascular (CMS/HCC) (POA: Yes) Nasal polyp (POA: Yes) Hemoptysis (POA: Yes) Acute blood loss anemia (POA: Yes) PEG (percutaneous endoscopic gastrostomy) status (CMS/HCC) (POA: Yes) Tracheostomy in place (CMS/HCC) (POA: Yes) Neville Hewitt III, MD documented in this encounter Procedure Notes * SandraMarcellaDO - 12/10/2022 1:11 PM CDTAssociated Order(s): GASTROSTOMY TUBE, CHANGE / REPOSITION Pre-Procedure Diagnose(s): Gastroparesis Post-Procedure Diagnose(s): Gastroparesis PEG tube exchange: -Witnessed phone consent was [...] with 20 cc sterile water. The tube wasthen retracted to about 4 cm at the external bumper. The bumper was secured in place with a zip tie. -The patient tolerated the procedure well. The attending (Dr. Rowe) was present for all portions of the procedure. Marcella Flores DO Gastroenterology & Hepatology Fellow Division of Gastroenterology and Hepatology [facility] documented in this encounter Consult Notes * Walt Og MD - 12/10/2022 11:22 AM CDTAssociated Order(s): IP CONSULT TO GASTROENTEROLOGY GASTROENTEROLOGY CONSULT Mojgan Tabor Age: [age] year old Date of : 1960 Date of Admission: 11/24/2022 Reason for Consult: G tube exchange Requesting Team: Medicine Subjective: History of Present Illness: Mojgan Tabor is a 62 year old male with a history of CVA, dementia, seizure disorder, s/p trach/PEGwho presented with VT and found to have gastroparesis with plan for GJ tube for which we were consulted. Patient had 24Fr Rojas-Cook PEG tube placed in February [address] Castillo. PEG has been functioning well and not exchange since that time (confirmed with sister - POA) over the phone. Primary team is planning to transition from G tube to GJ tube due to delayed gastric emptying on GES. IR asked that we exchange his current PEG with internal bumper to a PEG with internal balloon. Vital signs stable on review. No acute lab abnormality. Patient did not communicate with us other than turning his head toward my voice. Past Medical History: Patient Active Problem List: Cerebrovascular accident (CMS/HCC) Hyperlipidemia Essential (primary) hypertension Insomnia Low back pain Osteoporosis Truncal ataxia Therapeutic procedure Seizures (CMS/HCC) Alcohol abuse, uncomplicated Benign neoplasm of prostate Epilepsy, unspecified, not intractable, without status epilepticus (CMS/HCC) Other specified rheumatoid arthritis, unspecified site (CMS/HCC) Alzheimer's disease with early onset ([facility]/HCC) Cognitive communication deficit COVID-19 Dysphagia, oropharyngeal phase Hemiplegia and 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- dominant side ([facility]/HCC) History of CVA (cerebrovascular accident) Paroxysmal tachycardia, unspecified (CMS/HCC) Status epilepticus (CMS/HCC) Seizure disorder ([facility]/HCC) Bacteremia Ulcer of left foot (CMS/HCC) PAD (peripheral artery disease) (CMS/HCC) Severe protein-calorie malnutrition (CMS/HCC) Abdominal pain, generalized Lethargy History of stroke Acute on chronic respiratory failure with hypoxia (CMS/HCC) Protein-calorie malnutrition, unspecified severity (CMS/HCC) Aspiration into airway Aspiration pneumonitis ([facility]/HCC) Leukocytosis, unspecified type Sinus tachycardia Hypoxia Acute respiratory failure with hypoxia ([facility]/HCC) Atelectasis, right Contrast-induced nephropathy Zenker diverticulum Pressure ulcer of right heel, stage 3 (CMS/HCC) Dementia, vascular (CMS/HCC) Nasal polyp Hemoptysis Acute blood loss anemia PEG (percutaneous endoscopic gastrostomy) status ([facility]/HCC) Tracheostomy in place ([facility]/HCC) V-tach ([facility]/HCC) Uncontrolled hypertension Past Medical History: Diagnosis Date ??? CVA (cerebral vascular accident) (CMS/HCC) ??? HTN (hypertension) ??? Seizure ([facility]/HCC) Past Surgical History: Past Surgical History: Procedure Laterality Date ??? ENDOSCOPY, UPPER N/A 03/25/2022 N/A; ESOPHAGOGASTRODUODENOSCOPY (EGD) DIAGNOSTIC with PEG Placement ??? ENT SURGERY N/A 07/15/2022 N/A; TRANSCERVICAL ZENKERS DIVERTICULECTOMY, OPEN TRACHEOSTOMY ??? 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 SINUS SURGERY N/A 11/26/2022 N/A; Bilateral Nasal Endoscopy, Right polypectomy, Right Maxillary Antrostomy, Rihjy Anterior Ethmoidectomy Medications: Medications Prior to Admission Medication Sig Dispense Refill ??? acetaminophen (Tylenol) 500 MG tablet 1 (one) tablet by Enteral [...] by Enteral Tube route once daily ??? cetirizine (ZyrTEC) 10 MG tablet 1 (one) tablet by Enteral Tube route once daily ??? cloBAZam (Onfi) 20 MG tablet 1 (one) tablet by Enteral Tube route 2 times daily 60 tablet 5 ??? cloBAZam (Onfi) 20 MG tablet 1 (one) tablet by Enteral Tube route 2 times daily 14 tablet 0 ??? divalproex sprinkle (Depakote Sprinkle) 125 MG capsule 4 (four) capsules by Enteral Tube route every 6 hours 480 capsule 11 ??? divalproex sprinkle (Depakote Sprinkle) 125 MG capsule 4 (four) capsules by Enteral Tube route every 6 hours 108 capsule 0 ??? docusate sodium (Colace) 150 MG/15ML solution Take 15 mL by mouth once daily as needed for Constipation ??? enoxaparin (Lovenox) 40 MG/0.4ML injection Inject 40 (forty) mg subcutaneously once daily ??? fluticasone propionate (Flonase) 50 MCG/ACT nasal spray [place] 1 (one) spray into each nostril once daily ??? folic acid (Folvite) 1 MG tablet 1 (one) tablet by Enteral Tube route once daily ??? guaiFENesin (Robitussin) 100 MG/5ML solution 10 mL by Enteral Tube route every 6 hours ??? lacosamide (Vimpat) 200 MG tablet 1 (one) tablet by Enteral Tube route 2 times daily 60 tablet 5 ??? lacosamide (Vimpat) 200 MG tablet 1 (one) tablet by Enteral Tube route 2 times daily 14 tablet 0 ??? levalbuterol (Xopenex) 1.25 MG/3ML nebulizer solution Inhale 3 mL by mouth every 8 hours as needed for Shortness of Breath or Wheezing ??? levETIRAcetam (Keppra) 1000 MG tablet 2 (two) tablets by Enteral Tube route 2 times daily 120 tablet 11 ??? levETIRAcetam (Keppra) 1000 MG tablet 2 (two) tablets by Enteral Tube route 2 times daily 28 tablet 0 ??? midazolam (Nayzilam) 5 MG/0.1ML nasal spray [place] 0.1 mL into the nose as needed for Seizures 1Each 5 ??? midazolam (Nayzilam) 5 MG/0.1ML nasal spray [place] 0.1 mL into the nose as needed for Seizures 1Each 0 ??? scopolamine (Transderm-Scop) 1 MG patch Apply 1 (one) patch to skin every 3 days ??? senna-docusate (Senokot-S) 8.6-50 MG tablet 1 (one) tablet by Enteral Tube route 2 times daily ??? tamsulosin (Flomax) 0.4 MG capsule Take 1 (one) capsule by mouth once daily At the same time every day after a meal. Please make sure it is via enteral tube. ??? thiamine (Vitamin B-1) 100 MG tablet 1 (one) tablet by Enteral Tube route once daily Current Facility-Administered Medications Medication ??? 0.9% NaCl injection 3 mL And ??? 0.9% NaCl injection 1-10 mL ??? atorvastatin (Lipitor) tablet 40 mg ??? cloBAZam (Onfi) tablet 20 mg ??? dextrose 10 % IV bolus Or ??? dextrose 10 % IV bolus ??? dextrose 5 % infusion ??? divalproex sprinkle (Depakote Sprinkle) capsule 500 mg ??? folic acid (Folvite) tablet 1 mg ??? glucagon (Glucagen) injection 1 mg ??? glucose (Diabetic Use) (Dex4 Glucose) oral liquid ??? glucose (Diabetic Use) oral gel ??? glucose chew tablet 4 tablet ??? guaiFENesin (Robitussin) solution 10 mL ??? lacosamide (Vimpat) tablet 200 mg ??? levalbuterol (Xopenex) nebulizer solution 1.25 mg ??? levETIRAcetam (Keppra) oral solution 2,000 mg ??? metoprolol tartrate IR (Lopressor) tablet 25 mg ??? sodium chloride (Inhalant) 7 % nebulizer solution 4 mL ??? tamsulosin (Flomax) capsule 0.4 mg ??? thiamine (Vitamin B-1) tablet 100 mg Allergies: Allergies Allergen Reactions ??? Clonazepam Psychiatric hallucinations Social History: Social History Tobacco Use ??? Smoking status: Former Packs/day: 1.00 Years: 15.00 Pack years: 15.00 Types: Cigarettes ??? Smokeless tobacco: Never Vaping Use ??? Vaping Use: Never used Substance Use Topics ??? Alcohol use: No Comment: last drink 2015 Family History: family history is not on file. Review of Systems: Not able to obtain 2/2 mental status Objective: Physical Exam: BP 142/96 Pulse 73 Temp 97.8 ??F (36.6 ??C) (Oral) Resp 18 Ht 1.778 m (5' 10 ) Wt 70.8 kg (156 lb) SpO2 99% Wt Readings from Last 5 Encounters: 12/08/22 70.8 kg (156 lb) 10/12/22 54.9 kg (121 lb) 08/20/22 63.5 kg (140 lb) 07/20/22 66 kg (145 lb 8.1 oz) 06/25/22 47.6 kg (105 lb) General: nonverbal HEENT: conjunctivae/corneas clear Neck: supple Lungs: no increased work of breathing Heart: Normal rate Abdomen: soft, non-tender, non-distended. PEG in place. Markings/wording are no longer present on external portion. Rectal: deferred Extremities: no edema Neuro: alert, not oriented Labs: Recent Labs Component Name 12/10/22 0344 12/09/22 1211 12/09/22 0552 12/08/22 0428 12/07/22 0228 12/06/22 0310 08/29/22 0537 08/28/22 2224 06/27/22 2330 06/27/22 2215 05/12/22 0314 05/11/22 1309 03/12/22 0158 03/11/22 1059 WBC 6.9 - 7.1 8.7 10.4 7.3 - - - - - 9.4 - 11.7* HGB 13.0 - 12.0 11.8* 11.2* 11.1* - - - - - 14.5 - 11.1* MCV 92.4 - 90.1 93.1 92.5 91.8 - - - - - 97.1 - 93.7 INR - 1.1 - - - - - 1.2 - 1.0 - 1.0 - 1.2 - = values in this interval not displayed. Recent Labs Component Name 12/10/22 0344 12/09/22 0552 12/08/22 0428 NA 139 138 137 CL 104 106 104 CO2 28 27 26 BUN 15 13 16 CREATININE 0.50* 0.47* 0.49* Recent Labs Component Name 12/10/22 0344 12/09/22 0552 12/08/22 0428 11/26/22 0310 11/25/22 0335 11/04/22 0633 10/09/22 1204 AST - - - - 24 25 15 ALT - - - - 24 27 10 ALKPHOS - - - - 85 124 83 TBILI - - - - 0.2 0.2 0.1* ALB 2.6* 2.3* 2.5* - 2.6* 2.9* 3.0* - = values in this interval not displayed. Imaging: NM GASTRIC EMPTYING Result Date: 12/07/2022 Impression: Abnormal delayed gastric emptying with T 1/2 of >120 minutes. Of note, standardized normal values are not established for liquid gastric emptying and may vary per institution protocol.> Dictated by Concha Turner MD (Packaging Line Attendant) 12/07/2022 2:16 PM ISarah DO have personally reviewed and interpreted this examination/study. > Interpreting Provider: Sarah Mason DO on 12/07/2022 4:40 PM Procedures: EGD 03/25/2022: Impression: ? - Esophagogastric landmarks identified. ? - Erosive gastropathy with no bleeding and no ? stigmata of recent bleeding. ? - Erythematous duodenopathy. ? 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 Difficult intubation ? of esophagus. ? - An externally removable PEG placement was ? successfully completed. ? - No specimens collected. Assessment: Mojgan Tabor is a 62 year old male with a history of CVA, dementia, seizure disorder, s/p trach/PEGwho presented with VT and found to have gastroparesis with plan for GJ tube for which we were consulted. G-tube depending, Gastroparesis: GES showed gastroparesis. Primary team planning to pursue G-J withIR. We were asked to first exchange his PEG for a tube with internal balloon. Other co-morbidities: CVA, dementia, seizure disorder, trach/PEG dependence, VT Recommendations: Plan for G-tube exchange at bedside Patient and above recommendations will be discussed with GI attending, Dr. Rowe, as well as the primary team. Thank you for allowing us to participate in the care of this patient. We will continue to follow this patient with you. Please do not hesitate to contact us with further questions. Raleigh Og MD Gastroenterology & Hepatology, PGY-4 Associated attestation - Bebe Rowe MD - 12/11/2022 2:17 PM CDT Bebe Rowe MD Test Facility [employer] and marble installer at [facility] [employer] [facility] Endoscopist Division of Gastroenterology & Hepatology Date of encounter: 12/10/22. ATTENDING ATTESTATION: I have seen and examined the patient with the resident/fellow and I agree with the findings and plan of care as documented above. * Gaurav Avila PA-C - 12/08/2022 1:01 PM CDTAssociated Order(s): IP CONSULT TO INTERVENTIONAL RADIOLOGY Vascular & Interventional Radiology New Inpatient Consult Patient: Mojgan Tabor Age: [age] year old Date of : 1960 Date of Admission: 11/24/2022 Date: 12/08/2022 Subjective: Referring physician: Dr Lopez Reason for consult: G to GJ conversion HPI: 62 year old male with medical hx of CHRF, CVA, dementia, dysphagia w/ recurrent aspiration despite g-tube with longstanding trach who was admitted [facility] for further workup of acute on chronic respiratory failure and persistent bleeding from his trach site from his [facility]. Pt was taken to OR with ENT for further evaluation. In OR, pt with VTAC and procedure aborted. Hospital course c/b VAP. VIR consulted today, 12/08, for evaluation of G to GJ conversion after previous gastric emptying study performed demonstrated findings concerning for gastroparesis. Past Medical History: Diagnosis Date ??? CVA [...] 0.9% NaCl 3 mL Intracatheter q8h ??? atorvastatin 40 mg Enteral Tube AT BEDTIME ??? cloBAZam 20 mg Enteral Tube Once ??? cloBAZam 20 mg Enteral Tube BID ??? divalproex sprinkle 500 mg Enteral Tube q6h ??? enoxaparin 40 mg Subcutaneous QDAY ??? folic acid 1 mg Enteral Tube QDAY ??? guaiFENesin 10 mL Enteral Tube q6h ??? lacosamide 200 mg Enteral Tube BID ??? levalbuterol 1.25 mg Inhalation q6h ??? levETIRAcetam 2,000 mg Enteral Tube BID ??? metoprolol tartrate IR 25 mg Enteral Tube BID ??? sodium chloride (Inhalant) 4 mL Inhalation q6h ??? tamsulosin 0.4 mg Enteral Tube QDAY ??? thiamine 100 mg Enteral Tube QDAY PRN: ??? SALINE LOCK, INSERT AND MAINTAIN AND 0.9% NaCl AND 0.9% NaCl ??? dextrose IV for hypoglycemia OR dextrose IV for hypoglycemia ??? glucagon ??? glucose (Diabetic Use) ??? glucose (Diabetic Use) gel ??? glucose chew tab Infusions: dextrose 5 % and lactated ringers, Objective: Physical examination: BP 116/80 Pulse 81 Temp 98.2 ??F (36.8 ??C) (Oral) Resp 20 Ht 1.778 m (5' 10 ) Wt 70.8 kg(156 lb) SpO2 100% Estimated body mass index is 22.38 kg/m?? as calculated from the following: Height as of this encounter: 1.778 m (5' 10 ). Weight as of this encounter: 70.8 kg (156 lb). General: NAD Eyes: anicteric, no lid lag ENT: atraumatic, MMM Neck: supple, +trach Lungs: normal respiratory effort, no accessory muscle use to trach collar Cardiovascular: Regular rate Abdomen: soft, nontender, nondistended; gastrostomy tube access site CDI Extremities: warm, no pitting edema Psychiatric: follows verbal commands, appropriate mood Laboratory findings: Recent Labs Component Name 12/08/2242712/07/2222712/06/22 0310 03/09/22 0135 03/08/22 1455 WBC 8.7 10.4 7.3 - 20.8* HGB 11.8* 11.2* 11.1* - 14.3 HCT 36.7 34.5* 34.7* - 42.9 PLTCOUNT 343 426* 435* - 211 PLATELET - - - - Occasional* - = values in this interval not displayed. Recent Labs Component Name 08/28/22222306/27/22 22105/11/22 1309 INR 1.2 1.0 1.0 Recent Labs Component Name 12/08/2242712/07/2222712/06/22 0310 NA 137 137 139 GLUCOSE 105 95 117* CREATININE 0.49* 0.47* 0.38* EGFR >90 >90 >90 Recent Labs Component Name 12/08/2242712/07/2222712/06/22 0310 11/26/22 0310 11/25/22 0335 11/04/22 0633 10/09/22 1204 ALB 2.5* 2.4* 2.3* - 2.6* 2.9* 3.0* TBILI - - - - 0.2 0.2 0.1* ALT - - - - 24 27 10 AST - - - - 24 25 15 ALKPHOS - - - - 85 124 83 - = values in this interval not displayed. Imaging: Relevant imaging studies were personally reviewed by myself and the IR attending, Dr Ramirez. NM GASTRIC EMPTYING Result Date: 12/07/2022 Impression: Abnormal delayed gastric emptying with T 1/2 of >120 minutes. Of note, standardized normal values are not established for liquid gastric emptying and may vary per institution protocol.> Dictated by Concha Turner MD (Packaging Line Attendant) 12/07/2022 2:16 PM Sarah Thomason DO have personally reviewed and interpreted this examination/study. > Interpreting Provider: Sarah Mason DO on 12/07/2022 4:40 PM Recommendations: 62 year old male referred to VIR for G to GJ tube conversion after gastric emptying study. Pertinent labs and relevant imaging studies were reviewed. Risks, benefits, and alternatives of theprocedure were discussed in detail. Imaging and pt thoroughly reviewed by Dr Ramirez this PM. VIR amenable to procedure. Risks include but are not limited to infection, bleeding, and injury to surrounding structures. Additional risks include: malposition. All VIR physicians including: Luh Lisa, Carlos Anderson Vaheesan, Serban, Packianathan, Ashley, Jyothi Angel and Fito, are qualified to perform procedure. 1. Written informed consent will be obtained prior to the procedure. 2. Make patient NPO after midnight. 3. Hold all anticoagulants. 4. Plan for VIR image-guided gastrostomy to gastrojejunostomy conversion tentatively tomorrow, 12/09, as schedule allows. The IR attending, Dr. Ramirez, is in agreement with the above recommendations. The case was discussed with Dr Lopez from the referring service on 12/08/2022 at ~1230. Please contact our service regarding any questions or concerns. Gaurav Avila PA-C Interventional Radiology [phone] * David Dale MD - 12/03/2022 8:09 AM CDTAssociated Order(s): IP CONSULT TO INFECTIOUS DISEASES [facility] Infectious Diseases Consultation Patient Name: Mojgan Tabor 1960 Room: [facility] Date of Admission: 11/24/2022 Date of Service: 12/03/2022 Primary Care Physician: Joyce Luevano, INDUSTRIAL THERAPIST-COPY AND PRINT ASSOCIATE Attending Physician: Ilir Mckenzie MD Reason for Infectious Disease Consultation MDRO Acinetobacter baumannii in sputum History of Present Illness HPI: Mojgan Tabor is a 62 year old male with a past medical history significant for essential hypertension, hyperlipidemia, CVA, PAD s/p left AKA, seizure disorder, dementia, dysphagia s/p PEG tube, Zenker's diverticulum s/p diverticulectomy and open tracheostomy, chronic hypoxic re spiratory failure. Patient presented to [facility] on 11/24/2022 BIBEMS due to bleeding from tracheostomy. No fever or leukocytosis on admission but was given one dose of Zosyn and vancomycin. Chest x-ray was done and showed complete collapse of the right middle lobe and complete collapse of the right lower lobe. There is resulting rightward mediastinal shift. An abrupt cut off within the right mainstem bronchus may represent mucous plug or other debris. There is mild atelectasis at the left base. There is no evidence of pneumothorax or pleural effusion. The cardiomediastinal silhouette is obscured on the right. The visible bony thorax is intact. Bronchoscopy was done at bedside and samples sent for culture. Had CT chest done that showed trace amount of debris in the right main bronchus, improved from previous examination with almost complete resolution of atelectasis in the right middle lobe with decreased right lower lobe atelectasis and decreased mediastinal shift. For evaluation of bleeding from tracheostomy, he had CT sinus that showed findings compatible with right antrochoanal polyp versus malignant neoplasm given the interval change and hemoptysis and scattered paranasal sinus mucosal thickening. ENT consulted and patient was taken to OR on 11/26/2022 for right maxillary antrostomy with polypectomy and right anterior ethmoidectomy. Intraoperatively he developed ventricular tachycardia, code blue was called but never lost pulse, spontaneously converted to sinus tachycardia and transferred to the ICU. Cardiology consulted for arrhythmia. On 11/28/2022 he was started on broad spectrum antibioticsfor increasing secretions, increased oxygen requirements, and leukocytosis. CT chest done the previous day showed dependent consolidations within the right greater than left lower lobes likely represent sequela of aspiration given endoluminal debris within the bilateral bronchi with a component of atelectasis. Sputum culture was sent and now growing Pseudomonas aeruginosa and Acinetobacter baumannii. ID consulted for this. Medical History Past Medical History: Diagnosis Date ??? CVA (cerebral vascular accident) (CMS/HCC) ??? HTN (hypertension) ??? Seizure (CMS/HCC) Surgical History Past Surgical History: Procedure Laterality [...] Rihjy Anterior Ethmoidectomy Social History Social History Socioeconomic History ??? Marital status: [...] No Stress: No Stress Concern Present (11/28/2022) [employer] - Occupational Stress Questionnaire ??? Feeling of Stress : Not at all Housing Stability: Low Risk (11/28/2022) Housing Stability Vital Sign ??? Unable to Pay for Housing in the Last Year: No ??? Number of Places Lived in the Last Year: 1 ??? Unstable Housing in the Last Year: No Immunizations: Immunization History Administered Date(s) Administered ??? Covid Pfizer primary monovalent 12+ yr 0.3mL Purple cap 06/11/2020, 07/02/2020, 04/06/2021 ??? FLU VACCINE QUAD IIV4 SPLIT PF IM 03/19/2015, 06/23/2016, 06/15/2017, 03/24/2018 ??? INFLUENZA 03/19/2015, 04/23/2015, 06/23/2016, 06/15/2017, 03/24/2018, 03/14/2019, 03/07/2020, 03/16/2021, 02/01/2022 ??? PNEUMOCOCCAL PPV, HISTORIC VACCINE 02/07/2015, 08/13/2015, 02/04/2016 ??? TDAP 06/06/2017 ??? TDAP, HISTORIC VACCINE 03/23/2017 Family History No family history on file. I have confirmed the past medical, surgical, family and social history. Review of Systems Review of Systems Unable to perform ROS: Mental status change Allergies Allergies Allergen Reactions ??? Clonazepam Psychiatric hallucinations Antimicrobial History Current Antibiotics Cefepime 12/01 - present Prior Antibiotics At U Ceftriaxone 11/25 Vancomycin 11/25; 11/28 - 12/01 Zosyn 11/28 - 12/01 Cefepime 11/28 Home Medications Prior to Admission medications Medication Sig Start Date End Date Taking? Authorizing Provider acetaminophen (Tylenol) 500 MG tablet 1 (one) tablet by Enteral Tube route every 6 hours as needed Maximum allowable Acetaminophen amount = 4 Grams (4000 mg) / 24 hours. 06/15/22 Kiko Barros, artificial tears ophthalmic ointment Instill into both eyes every 8 hours 10/22/22 Randa Mccurdy MD aspirin (Aspirin) 81 MG chew tablet 1 (one) tablet by Enteral Tube route once daily ProviderFilemon MD atorvastatin (Lipitor) 40 MG tablet 1 (one) tablet by Enteral Tube route once daily 04/01/22 Dante Nuno MD cetirizine (ZyrTEC) 10 MG tablet 1 (one) tablet by Enteral Tube route once daily ProviderFilemon MD cloBAZam (Onfi) 20 MG tablet 1 (one) tablet by Enteral Tube route 2 times daily 11/11/22 Yana Rm APRN-BELINDA cloBAZam (Onfi) 20 MG tablet 1 (one) tablet by Enteral Tube route 2 times daily 11/11/22 Yana Rm APRN-BELINDA divalproex sprinkle (Depakote Sprinkle) 125 MG capsule 4 (four) capsules by Enteral Tube route every 6 hours 11/11/22 Yana Rm APRN-CNP divalproex sprinkle (Depakote Sprinkle) 125 MG capsule 4 (four) capsules by Enteral Tube route every 6 hours 11/11/22 Yana Rm APRN-CNP docusate sodium (Colace) 150 MG/15ML solution Take 15 mL by mouth once daily as needed for Constipation 04/07/22 Filemon Hernandez MD enoxaparin (Lovenox) 40 MG/0.4ML injection Inject 40 (forty) mg subcutaneously once daily Filemon Hernandez MD fluticasone propionate (Flonase) 50 MCG/ACT nasal spray [place] 1 (one) spray into each nostril once daily 06/08/22 Filemon Hernandez MD folic acid (Folvite) 1 MG tablet 1 (one) tablet by Enteral Tube route once daily 04/01/22 Dante Nuno MD guaiFENesin (Robitussin) 100 MG/5ML solution 10 mL by Enteral Tube route every 6 hours 10/22/22 Ck Mccurdy MD lacosamide (Vimpat) 200 MG tablet 1 (one) tablet by Enteral Tube route 2 times daily 11/11/22 Yana Rm APRN-CNP lacosamide (Vimpat) 200 MG tablet 1 (one) tablet by Enteral Tube route 2 times daily 11/11/22 Yana Rm APRN-CNP levalbuterol (Xopenex) 1.25 MG/3ML nebulizer solution Inhale 3 mL by mouth every 8 hours as needed for Shortness of Breath or Wheezing 10/22/22 Ck Mccurdy MD levETIRAcetam (Keppra) 1000 MG tablet 2 (two) tablets by Enteral Tube route 2 times daily 11/11/22 Yana Rm APRN-CNP levETIRAcetam (Keppra) 1000 MG tablet 2 (two) tablets by Enteral Tube route 2 times daily 11/11/22 Yana Rm APRN-CNP midazolam (Nayzilam) 5 MG/0.1ML nasal spray [place] 0.1 mL into the nose as needed for Seizures 11/11/22 Yana Rm APRN-CNP midazolam (Nayzilam) 5 MG/0.1ML nasal spray [place] 0.1 mL into the nose as needed for Seizures 11/11/22 Yana Rm APRN-CNP scopolamine (Transderm-Scop) 1 MG patch Apply 1 (one) patch to skin every 3 days 10/22/22 Ck Mccurdy MD senna-docusate (Senokot-S) 8.6-50 MG tablet 1 (one) tablet by Enteral Tube route 2 times daily 10/22/22 Ck Mccurdy MD tamsulosin (Flomax) 0.4 MG capsule Take 1 (one) capsule by mouth once daily At the same time every day after a meal. Please make sure it is via enteral tube. 06/15/22 Kiko Barros, thiamine (Vitamin B-1) 100 MG tablet 1 (one) tablet by Enteral Tube route once daily 04/01/22 Dante Nuno MD Inpatient Medications ??? 0.9% NaCl 3 mL Intracatheter q8h ??? artificial tears Each Eye q8h ??? atorvastatin 40 mg Enteral Tube AT BEDTIME ??? cefepime 2 g Intravenous q8h ??? chlorhexidine 15 mL Mouth/Throat BID ??? cloBAZam 20 mg Enteral Tube Once ??? cloBAZam 20 mg Enteral Tube BID ??? divalproex sprinkle 500 mg Enteral Tube q6h ??? famotidine 20 mg Enteral Tube BID ??? folic acid 1 mg Enteral Tube QDAY ??? guaiFENesin 10 mL Enteral Tube q6h ??? insulin aspart 0-6 Units Subcutaneous q4h ??? lacosamide 200 mg Enteral Tube BID ??? levalbuterol 1.25 mg Inhalation q6h ??? levETIRAcetam 2,000 mg Enteral Tube BID ??? metoprolol tartrate IR 25 mg Enteral Tube BID ??? polyethylene glycol 3350 17 g Enteral Tube QDAY ??? senna-docusate 1 tablet Enteral Tube BID ??? tamsulosin 0.4 mg Enteral Tube QDAY ??? thiamine 100 mg Enteral Tube QDAY dexmedeTOMIDine, 0-1.5 mcg/kg/hr, Last Rate: Stopped (12/02/22 1028) Objective Vitals BP 119/71 Pulse 100 Temp 99.3 ??F (37.4 ??C) (Oral) Resp 24 Ht 1.778 m (5' 10 ) Wt 73.3 kg (161 lb 9.6 oz) SpO2 96% Temp (24hrs), Av.9 ??F (37.2 ??C), Min:98.1 ??F (36.7 ??C), Max:99.3 ??F (37.4 ??C) Physical Exam Physical Exam Vitals and nursing note reviewed. Constitutional: General: He is not in acute distress. Appearance: He is normal weight. He is ill-appearing. He is not toxic-appearing or diaphoretic. Comments: Mechanically ventilated through tracheostomy Neck: Trachea: Tracheostomy present. Cardiovascular: Rate and Rhythm: Normal rate and regular rhythm. Pulses: Normal pulses. Heart sounds: Normal heart sounds. No murmur heard. No friction rub. No gallop. Pulmonary: Breath sounds: No wheezing, rhonchi or rales. Abdominal: General: Abdomen is flat. Bowel sounds are normal. There is no distension. Palpations: Abdomen is soft. Comments: PEG tube present Genitourinary: Comments: Jensen catheter present Musculoskeletal: Right lower leg: No edema. Left Lower Extremity: Left leg is amputated above knee. Lines: right forearm PIV, right arm PIV Lab Review CBC: Recent Labs Component Name 12/03/2222812/02/22 0356 12/01/22 0338 WBC 9.4 13.6* 10.9* RBC 3.12* 3.22* 3.17* HGB 9.3* 9.6* 9.4* HCT 28.3* 29.2* 28.4* MCV 90.7 90.7 89.6 BMP: Recent Labs Component Name 12/03/2222812/02/22 0356 12/01/22 0338 11/26/22 0310 11/25/22 0335 11/04/22 0633 10/12/22 0716 10/09/22 1204 NA 143 140 139 - 138 136 - 140 CL 111* 109* 109* - 108* 106 - 108* CO2 22 25 23 - 26 24 - 24 BUN 18 14 10 - 16 14 - 14 CREATININE 0.50* 0.55* 0.53* - 0.45* 0.47* - 0.39* ALB 2.1* 2.2* 2.0* - 2.6* 2.9* - 3.0* PROT - - - - 6.9 7.7 - 6.9 - = values in this interval not displayed. estimated creatinine clearance is 160.2 mL/min (A) (by C-G formula based on SCr of 0.5 mg/dL (L)). LFTs: Recent Labs Component Name 11/25/22 0335 11/04/22 0633 10/09/22 1204 06/30/22 1039 06/27/22 2215 ALKPHOS 85 124 83 - 95 ALT 24 27 10 - 6 AST 24 25 15 - 19 LIPASE - - - - 18 - = values in this interval not displayed. Coagulation: Recent Labs Component Name 08/28/22 2224 06/27/22 2215 05/11/22 1309 PT 15.2* 12.8 13.5 INR 1.2 1.0 1.0 Microbiology, Imaging and other diagnostic tests MICROBIOLOGY: Blood culture: None done this admission Sputum culture: 11/28 Pseudomonas aeruginosa, Acinetobacter baumannii (MDRO) Other serologies: 11/25 MRSA DNA PCR detected HISTOPATHOLOGY: None at this admission IMAGING & PROCEDURES: I have independently reviewed all pertinent images. Reports in chart. Assessment and Recommendations Acute on chronic hypoxic respiratory failure Possible aspiration pneumonia Possible tracheitis/tracheobronchitis Concern for VAP nursing home care facility resident coming initially with bleeding from tracheostomy Chest x-ray on admission with lung opacifications concerning for mucous plugging; s/p bronch, notedmucous plugs and secretions but no samples were sent for culture CT chest with improved aeration Initially on trach collar but then placed on Mechanical ventilation on 11/26/2022 Then there was a concern for possible VAP as there was questionable worsening oxygen requirements, leukocytosis, increased sputum production; as per chart review there was no evident worsening O2 requirements, WBC count was trending down, and there was no imaging evidence of lobar pneumonia VAP is diagnosed clinically and with imaging in the setting of an acute increase in oxygen requirements, increased sputum production, imaging findings on chest x-ray or CT scan, and systemic signs and symptoms of infection As part of work up a sputum culture was obtained that initially grew Pseudomonas and was switched to cefepime but 3 days later he grew Acinetobacter baumannii (MDRO) Might have had aspiration event POA which would be already be treated with current regimen, there was clinical improvement on current regimen Acinetobacter likely colonization as it has grown in the past, time to grow in culture and improvement on agents that would technically be ineffective against it Will treat for a total of 5 days Will request susceptibilities on Acinetobacter for future reference QTc prolongation Will avoid QTc prolonging antimicrobials Renal Function estimated creatinine clearance is 160.2 mL/min (A) (by C-G formula based on SCr of 0.5 mg/dL (L)). Plan/Recommendations Continue cefepime 2 g IV every 8 hours Plan to treat for possible pneumonia for a total of 5 days with cefepime from start date 12/01/2022 with EOT 12/06/2022 Please obtain hepatitis C screening with HCV antibody testing with reflex to NAAT, if not done previously Please obtain HIV screening with 4th generation test, if not done previously Check CBC with auto diff and CMP weekly while on IV antibiotics Infectious Disease will sign off of this patient. Please page us for any questions or concerns. If any additional cultures or infectious disease work up return positive, page us for additional recommendations. Thank you for allowing us to participate in the care of this patient. Patient seen, examined, and case/plan were discussed with my attending physician, Dr. Drake. Case was discussed with primary team. David Dale MD (PGY-4) Infectious Diseases Fellow [facility] Pager: [phone] ID Clinic Associated attestation - Natali Drake MD - 12/03/2022 10:55 PM CDT ID ATTENDING ATTESTATION I discussed this patient with the fellow and I agree with the findings and plan of care as documented by the fellow. Additionally, I interviewed and examined the patient myself and reviewed labwork, relevant imaging, and relevant history. I agree with the assessment and plan as detailed in the fellow note with the following modifications/additional thoughts only. Briefly: Mr. Tabor is a 62 yo male with PMH significant for essential hypertension, hyperlipidemia, CVA, PADs/p left AKA, seizure disorder, dementia, dysphagia s/p PEG tube, Zenker's diverticulum s/p diverticulectomy and open tracheostomy, chronic hypoxic respiratory failure who presented initially from his LTACH 11/24 with bleeding from trach site; course c/b episode of Vtach during ENT procedure, for which he was admitted to ICU, sinus tachycardia since, difficult to control HTN, and presumed VAP treated with cefepime. It is not clear this is a true infection; he did not have a true fever (100.4, not sustained), there is questionable increase in secretions, but sputum culture was obtained and grew Pseudomonas (I zosyn) and Acintobacter baumanii (MDRO, R amp/sul, cefepime, zosyn, Cipro, marycarmen, I ceftazidime). ID is consulted for antibiotic management. Presumed VAP -It is not clear he had a true infection. He did not have a true fever (100.4, not sustained), there is questionable increase in secretions. He is clinically improving on treatment that does not cover his MDRO Acinetobacter. 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 -We would recommend completing 5 days of cefepime, EOT 12/06/2022, for any clinical infection causedby the Pseudomonas, since he is clinically improved on this antibiotic. Screening -It is our practice to routinely check HIV and HCV if not done previously, per CDC guidelines on appropriate screening. -If not done previously: -Please obtain HCV screening with Ab testing with reflex to NAAT. -Please obtain HIV screening with 4th gen test. Please see fellow note for full details. Thank you for involving us in the care of this patient. ID will sign off at this time, please call with further questions. I spent >35 minutes in the care of this patient today, and more than 50% of that time was spent in counseling and coordination of care. Natali Drake MD, MPH Infectious Disease Attending * Tri Morrison MD - 12/01/2022 12:00 PM CDTAssociated Order(s): IP CONSULT TO GENERAL SURGERY Images from the original note were not included. General Surgery Consult History and Physical Patient Name: Mojgan Tabor Age/Gender: 62 year old male : 1960 Date: 12/01/2022 Reason for Consult: J tube HPI: Mojgan Tabor is a 62 year old male with history of CVA, seizures, dementia, and dysphagia withrecurrent aspiration/failure of wallow studies and chronic respiratory failure s/p trach in Jun 2022 who presented to [facility] for bleeding from tracheostomy site. ENT took him to the OR on 11/26 but procedure was aborted due to new onset V tach. He was then transferred to MICU for further care. Patient's family was told by his coverstitch binder that J tube may be better for him given his recurrentissues with aspiration pneumonia and ACS is consulted for evaluation of this. Past Medical History: Diagnosis Date ??? CVA [...] Allergies Allergen Reactions ??? Clonazepam Psychiatric hallucinations Outpatient Medications: ??? acetaminophen (Tylenol) 500 MG tablet ??? artificial tears ophthalmic ointment ??? aspirin (Aspirin) 81 MG chew tablet ??? atorvastatin (Lipitor) 40 MG tablet ??? cetirizine (ZyrTEC) 10 MG tablet ??? cloBAZam (Onfi) 20 MG tablet ??? cloBAZam (Onfi) 20 MG tablet ??? divalproex sprinkle (Depakote Sprinkle) 125 MG capsule ??? divalproex sprinkle (Depakote Sprinkle) 125 MG capsule ??? docusate sodium (Colace) 150 MG/15ML solution ??? enoxaparin (Lovenox) 40 MG/0.4ML injection ??? fluticasone propionate (Flonase) 50 MCG/ACT nasal spray ??? folic acid (Folvite) 1 MG tablet ??? guaiFENesin (Robitussin) 100 MG/5ML solution ??? lacosamide (Vimpat) 200 MG tablet ??? lacosamide (Vimpat) 200 MG tablet ??? levalbuterol (Xopenex) 1.25 MG/3ML nebulizer solution ??? levETIRAcetam (Keppra) 1000 MG tablet ??? levETIRAcetam (Keppra) 1000 MG tablet ??? midazolam (Nayzilam) 5 MG/0.1ML nasal spray ??? midazolam (Nayzilam) 5 MG/0.1ML nasal spray ??? scopolamine (Transderm-Scop) 1 MG patch ??? senna-docusate (Senokot-S) 8.6-50 MG tablet ??? tamsulosin (Flomax) 0.4 MG capsule ??? thiamine (Vitamin B-1) 100 MG tablet Inpatient Medications: Current Facility-Administered Medications Medication ??? 0.9% NaCl infusion rate and volume ??? 0.9% NaCl injection 3 mL And ??? 0.9% NaCl injection 1-10 mL ??? acetaminophen (Tylenol) tablet 500 mg ??? artificial tears ophthalmic ointment ??? atorvastatin (Lipitor) tablet 40 mg ??? cefepime (Maxipime) 2,000 mg in 0.9% NaCl IV 50 mL IVPB ??? chlorhexidine (Peridex) 0.12 % oral solution 15 mL ??? cloBAZam (Onfi) tablet 20 mg ??? dextrose 10 % IV bolus Or ??? dextrose 10 % IV bolus ??? divalproex sprinkle (Depakote Sprinkle) capsule 500 mg ??? famotidine (Pepcid) tablet 20 mg ??? fentaNYL (PF) (Sublimaze) injection 50 mcg ??? folic acid (Folvite) tablet 1 mg ??? glucagon (Glucagen) injection 1 mg ??? glucose (Diabetic Use) (Dex4 Glucose) oral liquid ??? glucose (Diabetic Use) oral gel ??? glucose chew tablet 4 tablet ??? guaiFENesin (Robitussin) solution 10 mL ??? insulin lispro (HumaLOG;ADMelog) 100 UNIT/ML pen 0-6 Units ??? lacosamide (Vimpat) tablet 200 mg ??? levalbuterol (Xopenex) nebulizer solution 1.25 mg ??? levETIRAcetam (Keppra) tablet 2,000 mg ??? metoprolol tartrate IR (Lopressor) tablet 25 mg ??? polyethylene glycol 3350 (Miralax) packet 17 g ??? senna-docusate (Senokot-S) tablet 1 tablet ??? tamsulosin (Flomax) capsule 0.4 mg ??? thiamine (Vitamin B-1) tablet 100 mg Social History Tobacco Use ??? Smoking status: Former Packs/day: 1.00 Years: 15.00 Pack years: 15.00 Types: Cigarettes ??? Smokeless tobacco: Never Vaping Use ??? Vaping Use: Never used Substance Use Topics ??? Alcohol use: No Comment: last drink 2015 ??? Drug use: No Comment: occasional No family history on file. Problem List/Present on Admission: V-tach (CMS/HCC) (POA: No) History of CVA (cerebrovascular accident) (POA: Yes) Seizure disorder (CMS/HCC) (POA: Yes) Acute on chronic respiratory failure with hypoxia (CMS/HCC) (POA: Yes) Protein-calorie malnutrition, unspecified severity (CMS/HCC) (POA: Yes) Sinus tachycardia (POA: Unknown) Dementia, vascular (CMS/HCC) (POA: Yes) Nasal polyp (POA: Yes) Hemoptysis (POA: Yes) Acute blood loss anemia (POA: Yes) PEG (percutaneous endoscopic gastrostomy) status (CMS/HCC) (POA: Yes) Tracheostomy in place (CMS/HCC) (POA: Yes) Uncontrolled hypertension (POA: No) REVIEW OF SYSTEMS Unable to obtain PHYSICAL EXAM Vitals: 12/01/22 0527 12/01/22 0600 12/01/22 0800 12/01/22 1013 BP: 117/73 Pulse: 94 99 81 Resp: 18 17 Temp: 98.6 ??F (37 ??C) SpO2: 97% 96% 98% Weight: Height: Estimated body mass index is 21.69 kg/m?? as calculated from the following: Height as of this encounter: 1.778 m (5' 10 ). Weight as of this encounter: 68.6 kg (151 lb 3.2 oz). Gen: Intubated, sedated HEENT: AT/NC CV: RRR Pulm: Mechanically ventilated, symmetric chest rise Abd: Soft, nondistended, PEG in place without evidence of skin infection MSK: WWP, no c/c/e Neuro: Moving all extremities, no focal deficits Psych: Appropriate mood and affect Recent Labs: CBC: Recent Labs Component Name 12/01/22 0338 WBC 10.9* HGB 9.4* HCT 28.4* BMP: Recent Labs Component Name 12/01/22 0338 NA 139 CL 109* CO2 23 BUN 10 CREATININE 0.53* Recent Labs Component Name 08/28/22 2224 PT 15.2* INR 1.2 Imaging: No relevant imaging to review Assessment and Plan: Mojgan Tabor is a 62 year old male with numerous medical comorbidities s/p PEG with recurrent issues with aspiration pneumonia even prior to PEG placement. - No surgical intervention at this time. We do not recommend J tube in this scenario as there is noevidence to suggest that he is aspirating tube feeds. It is more likely that he is aspirating his oropharyngeal secretions rather than tube feeds. - Continue supportive management per primary - Please page ACS with any further questions or concerns Staff; Dr. Royce Morrison MD, PGY-5 General Surgery Resident [facility] Associated attestation - Juan Diego Crane MD - 12/03/2022 12:52 PM CDT Attending attestation: I saw and examined the patient on 12/03 and agree with the note below with the following synopsis/corrections: Recurrent aspiration pneumonia is not an indication for conversion of gastric to postpyloric feeding unless it can be proven that he has gastric outlet obstruction or some other issue causing delayedgastric emptying. Aspiration pneumonia is almost always caused by aspiration of orophyrangeal secretions, reference: the most common organisms causing aspiration pneumonia are mouth heidi. This will be unchanged regardless of his feeding situation. Sadly, the patient's family was allegedly told by her cardiology team that the gastric feeds are causing his recurrent pneumonia. With all kindness and respect, I disagree with that assessment and donot believe that surgery will help him. Juan Diego Crane MD Trauma/acute care surgery * Nuria Guajardo, RD/LD - 11/29/2022 8:43 AM CDTAssociated Order(s): IP CONSULT TO NUTRITIONAL SERV Nutrition Re-Assessment Brief Synopsis: Patient is diagnosed with is at malnutrition; Specific criteria can be found in assessment below Nutrition Plan: Promote at goal of 65 ml/hr. Provides 1560 kcal, 98 g protein, 203 g carbohydrate, 1309 ml free water. +50 ml q 6 hrs free water flush or per MD if on IVF +100 ml q4 hrs free water flush or per MD if not on additional fluids Recommendations to Physician: Alter TF once vital AF 1.2 is out Comments: Consulted for MST of home TF. Pt receiving vital AF at 30 ml/hr per flowsheet. Remains onvent. Last BM 11/27. Assessment: Med/Surg History and Clinical Diagnoses: 62 year old male w/PMHx significant for prior CVA c/b left-sided residual deficits, seizure disorder, dementia, dysphagia w/ recurrent aspiration s/p PEG, zenker divertiuculum s/p diverticulectomy 2022, chronic hypoxic respiratory faiure s/p trach 06/2022, PVD s/p L AKA, and HTN who [facility] ([place]) for acute on chronic hypoxic respiratory failure and evaluation of bleeding from tracheostomy Diet order accuracy Current diet order: NPO Current supplement order: None Current tube feeding order: vital AF 30 ml/hr Nutrition recommendation: agree with current nutrition order P.O.Intake for the past 48 hrs:No data recorded Supplement(s) Consumed- Last 48 hours None Food Allergies: No known food allergies GI Concerns: Other (Comment) (PEG) Chewing/Swallowing: Other (Comment) (ETT) Pain affecting intake:No Admission weight: Weight: 54.9 kg (121 lb) (11/25/22 0620) Recent Weights/Methods 10/02/2022 0400 10/05/2022 0445 10/05/2022 0506 10/11/2022 0400 10/12/2022 0400 11/25/2022 0620 11/27/2022 0041 11/29/2022 0600 Weight: 60.8 kg (134 lb) -- 54 kg (119 lb) 54.4 kg (120 lb) 54.9 kg (121 lb) 54.9 kg (121 lb) 69.9 kg (154 lb 1.6 oz) 69.9 kg (154 lb) Weight Method (Utilize Scales): Bedscale -- Bedscale Bedscale Bedscale -- Bedscale -- Wt Comments: questionable wt gain Height: 177.8 cm (5' 10 ) IBW/lb (Calculated) Male: 166 , Laboratory values reviewed. Recent Labs Component Name 11/29/22 0312 11/28/22 0434 11/27/22 0318 11/26/22 0310 11/25/22 0335 11/04/22 0633 10/12/22 0716 10/09/22 1204 BUN 11 12 8 - 16 14 - 14 CREATININE 0.47* 0.50* 0.45* - 0.45* 0.47* - 0.39* NA 136 136 137 - 138 136 - 140 POTASSIUM 4.1 4.1 4.2 - 4.5 4.0 - 4.0 CL 108* 108* 104 - 108* 106 - 108* CO2 23 21* 22 - 26 24 - 24 GLUCOSE 125* 129* 115 - 91 98 - 115 CALCIUM 9.0 9.5 9.7 - 9.5 9.7 - 9.8 PROT - - - - 6.9 7.7 - 6.9 ALB 2.2* 2.4* 2.6* - 2.6* 2.9* - 3.0* TBILI - - - - 0.2 0.2 - 0.1* ALKPHOS - - - - 85 124 - 83 ALT - - - - 24 27 - 10 AST - - - - 24 25 - 15 ANIONGAP 9 11 15 - 9 10 - 12 BCR 23 24* 18 - 36* 30* - 36* OSMOLALITY 283 283 283 - 287 282 - 291 AGRATIO - - - - 0.6* 0.6* - 0.8* EGFR >90 >90 >90 - >90 >90 - >90 - = values in this interval not displayed. Medications noted. Current Facility-Administered Medications Medication ??? 0.9% NaCl injection 3 mL And ??? 0.9% NaCl injection 1-10 mL ??? acetaminophen (Tylenol) tablet 500 mg ??? artificial tears ophthalmic ointment ??? atorvastatin (Lipitor) tablet 40 mg ??? chlorhexidine (Peridex) 0.12 % oral solution 15 mL ??? cloBAZam (Onfi) tablet 20 mg ??? dextrose 10 % IV bolus Or ??? dextrose 10 % IV bolus ??? divalproex sprinkle (Depakote Sprinkle) capsule 500 mg ??? esmolol (Brevibloc) 2,500 mg in 250 mL infusion ??? famotidine (Pepcid) tablet 20 mg ??? fentaNYL (PF) (Sublimaze) injection 50 mcg ??? fentaNYL 2500 mcg/50mL (Sublimaze) infusion ??? folic acid (Folvite) tablet 1 mg ??? glucagon (Glucagen) injection 1 mg ??? glucose (Diabetic Use) (Dex4 Glucose) oral liquid ??? glucose (Diabetic Use) oral gel ??? glucose chew tablet 4 tablet ??? guaiFENesin (Robitussin) solution 10 mL ??? insulin lispro (HumaLOG;ADMelog) 100 UNIT/ML pen 0-6 Units ??? iopamidol (Isovue 370) 76 % contrast ??? lacosamide (Vimpat) tablet 200 mg ??? levalbuterol (Xopenex) nebulizer solution 1.25 mg ??? levETIRAcetam (Keppra) tablet 2,000 mg ??? piperacillin - tazobactam (Zosyn) 3.375 g in 0.9% NaCl IV 55 mL IVPB ??? polyethylene glycol 3350 (Miralax) packet 17 g ??? senna-docusate (Senokot-S) tablet 1 tablet ??? tamsulosin (Flomax) capsule 0.4 mg ??? thiamine (Vitamin B-1) tablet 100 mg ??? vancomycin (Vancocin) 1,250 mg in 250 mL NaCl IVPB Premix ??? vancomycin (Vancocin) IV dose per pharmacy Skin/Wound: surgical incision on nose Estimated Energy Needs: KCAL: 5755-5329 (20-25kcal/kg ABW) Protein (g): 84-139 (1.2-2.0g/kg ABW) Fluid (ml): 1 ml/kcal Needs based on: Kcal/kg- (Comment) (69.9kg) Recommended Access Route: TF Malnutrition Etiology: Malnutrition in the context of: chronic disease, Malnutrition Severity: Severe Unintended weight change: Severe weight loss Weight Loss: > 7.5% x 3 months BMI: Body mass index is 22.1 kg/m??. GI Concerns: Other (Comment) (PEG) Nutrition Focused Physical Assessment: Loss of Subcutaneous Fat Orbital: Severe Buccal: Severe Muscle Loss Temples (Temporalis Muscle): Severe Clavicles (Pectoralis & Deltoids): Severe Shoulders (Deltoids): Severe Thigh (Quadriceps): Severe Education needed: None Education Provided: Not appropriate Nutrition Care Process (1) Nutrition Diagnostic Statement: Malnutrition severity: : Severe related to:: inadequate protein-energy intake as evidenced by:: unintentional weight loss;loss of subcutaneous fat;loss of muscle mass;BMI less than 19 Nutrition Diagnostic Statement Progress: Nutrition problem continues Nutrition Intervention: Enteral nutrition: Monitoring: TF, BM, labs, meds, weight Evaluation: Nutrition Goal: Enteral/Parenteral Nutrition prescription will be consistent with estimated nutrient needs Nutrition Goal Timeframe: Throughout stay Nutrition Goal Progress: Continue with current goal Ascom: [id number] * Ambrosio Sherman MD - 11/27/2022 2:[address] [facility] Consultation : 1960 Admission: 11/24/2022 LOS: 2 Requesting physician: MICU 1 team Reason for consult: HTN and NSVT management Assessment and plan: #Uncontrolled HTN vs. HTN urgency #Sinus tachycardia #Prolonged QTc (could this have caused polymorphic VT?) #Nasal bleed #CVA with residual L sided weakness #Seizure disorder #PVD s/p BKA #Leukocytosis Recommendations: -Sinus tachycardia is a physiologic response to an underlying pathology, agree with CTPE. Pt is notanemic. Is there potential for withdrawal? -Obtain formal TTE -Please obtain strips from anesthesia/ENT for further clarification of length of VT and rhythm, I have not noted any sustained VT on telemetry thus far -Titrate BP with gtts and transition with oral ant-HTNsives -Agree with TSH -Agree with CTPE -Consider work up for pheochromocytoma -Avoid QTc prolonging medications -Continue telemetry monitoring -Goal Mg>2, K>4 We will continue to follow These recommendations are not final until cosigned by attending physician. Subjective: Chief complaint: ENT surgical evaluation aborted History of present illness: Mrs. Tabor is a 62 yo M with a history of R occipital stroke with L sided residual deficits, HTN, Seizure d/o, Alzheimers, PVD s/p R BKA, Dysphasia s/p PEG tube placement (02/2022) and recurrent aspirations now s/p transcervical Zenker's diverticulotomy and tracheostomy (07/15/22) that presented to there ER on 11/25/22 found to have blood from tracheostomy tube on suction noted at [facility] (suction wasperformed in the setting of congestion noted by nurses). He had a CT done with R trace bronchial debris. There was complete opacification of the R maxillary sinus. ENT evaluated the patient and he underwent laryngoscopy and nasal endoscopy with right bronchial occlusion with purulence and clot which was suctioned with improvement and left upper bronchus with continued purulence. No kate bleedingin oral cavity noted. There was a R antrochoanal polyp that occluded the R nasal cavity and R half of the choana. Bleeding was noted, afrin was applied with some resulotion but not completely resolved. Given tenuous respiratory status, ENT decided to take patikent to OR on 11/26 for removal of polypwhich was completed. Procedure was complicated by Vtach on table. There was no loss of pulse, Vtach resolved and patient reverted back to NSR spontaneously. A code was called at the time. The operative note suggests that the entirety of the rhythm was less than 2 minutes with weak pulses noted. Case was aborted there after. Patient has since been tachycardiac and hypertensive, currently on an esmolol and nicardipine gtt. Primary team is consulting cardiology to evaluate the NSVT rhythm and to help manage underlying HTN. ROS limited given sedated on fentanyl gtt. Past Medical History: Diagnosis Date ??? CVA (cerebral vascular accident) (CMS/HCC) ??? HTN (hypertension) ??? Seizure (CMS/HCC) Past Surgical History: Procedure Laterality Date ??? ENDOSCOPY, UPPER N/A 03/25/2022 N/A; ESOPHAGOGASTRODUODENOSCOPY (EGD) DIAGNOSTIC with PEG Placement ??? ENT SURGERY N/A 07/15/2022 N/A; TRANSCERVICAL ZENKERS DIVERTICULECTOMY, OPEN TRACHEOSTOMY ??? Leg Amputation, Below Knee Left 03/15/2022 Left; LEFT BKA POSS AKA No family history on file. Social History Tobacco Use ??? Smoking status: Former Packs/day: 1.00 Years: 15.00 Pack years: 15.00 Types: Cigarettes ??? Smokeless tobacco: Never Vaping Use ??? Vaping Use: Never used Substance Use Topics ??? Alcohol use: No Comment: last drink 2015 ??? Drug use: No Comment: occasional Allergies Allergen Reactions ??? Clonazepam Psychiatric hallucinations Prior to Admission medications Taking? Last Dose Medication Sig acetaminophen (Tylenol) 500 MG tablet 1 (one) tablet by Enteral [...] tablet by Enteral Tube route once daily cetirizine (ZyrTEC) 10 MG tablet 1 (one) tablet by Enteral Tube route once daily cloBAZam (Onfi) 20 MG tablet 1 (one) tablet by Enteral Tube route 2 times daily cloBAZam (Onfi) 20 MG tablet 1 (one) tablet by Enteral Tube route 2 times daily divalproex sprinkle (Depakote Sprinkle) 125 MG capsule 4 (four) capsules by Enteral Tube route every 6 hours divalproex sprinkle (Depakote Sprinkle) 125 MG capsule 4 (four) capsules by Enteral Tube route every 6 hours docusate sodium (Colace) 150 MG/15ML solution Take 15 mL by mouth once daily as needed for Constipation enoxaparin (Lovenox) 40 MG/0.4ML injection Inject 40 (forty) mg subcutaneously once daily fluticasone propionate (Flonase) 50 MCG/ACT nasal spray [place] 1 (one) spray into each nostril once daily folic acid (Folvite) 1 MG tablet 1 (one) tablet by Enteral Tube route once daily guaiFENesin (Robitussin) 100 MG/5ML solution 10 mL by Enteral Tube route every 6 hours lacosamide (Vimpat) 200 MG tablet 1 (one) tablet by Enteral Tube route 2 times daily lacosamide (Vimpat) 200 MG tablet 1 (one) tablet by Enteral Tube route 2 times daily levalbuterol (Xopenex) 1.25 MG/3ML nebulizer solution Inhale 3 mL by mouth every 8 hours as needed for Shortness of Breath or Wheezing levETIRAcetam (Keppra) 1000 MG tablet 2 (two) tablets by Enteral Tube route 2 times daily levETIRAcetam (Keppra) 1000 MG tablet 2 (two) tablets by Enteral Tube route 2 times daily midazolam (Nayzilam) 5 MG/0.1ML nasal spray [place] 0.1 mL into the nose as needed for Seizures midazolam (Nayzilam) 5 MG/0.1ML nasal spray [place] 0.1 mL into the nose as needed for Seizures scopolamine (Transderm-Scop) 1 MG patch Apply 1 (one) patch to skin every 3 days senna-docusate (Senokot-S) 8.6-50 MG tablet 1 (one) tablet by Enteral Tube route 2 times daily tamsulosin (Flomax) 0.4 MG capsule Take 1 (one) capsule by mouth once daily At the same time every day after a meal. Please make sure it is via enteral tube. thiamine (Vitamin B-1) 100 MG tablet 1 (one) tablet by Enteral Tube route once daily Objective: Patient Vitals for the past 24 hrs: BP Temp Temp src Pulse Resp SpO2 Weight 11/27/22 1432 -- -- -- (!) 141 -- 99 % -- 11/27/22 1035 -- -- -- (!) 149 12 99 % -- 11/27/22 0800 -- 99.4 ??F (37.4 ??C) Axillary -- -- -- -- 11/27/22 0700 (!) 172/133 -- -- (!) 131 12 98 % -- 11/27/22 0600 (!) 173/114 -- -- (!) 128 12 99 % -- 11/27/22 0504 -- -- -- 107 12 99 % -- 11/27/22 0500 (!) 167/108 -- -- 105 12 99 % -- 11/27/22 0410 -- -- -- (!) 133 12 99 % -- 11/27/22 0408 -- -- -- (!) 133 -- 98 % -- 11/27/22 0400 (!) 167/115 97.6 ??F (36.4 ??C) Axillary (!) 133 12 100 % -- 11/27/22 0330 (!) 175/117 -- -- (!) 133 12 99 % -- 11/27/22 0230 (!) 181/117 -- -- (!) 140 12 98 % -- 11/27/22 0100 (!) 183/122 -- -- (!) 135 12 98 % -- 11/27/22 0041 -- -- -- -- -- -- 69.9 kg (154 lb 1.6 oz) 11/27/22 0032 (!) 197/128 -- -- (!) 131 12 100 % -- 11/27/22 0024 -- -- -- (!) 130 12 98 % -- 11/27/22 0000 (!) 174/116 97.3 ??F (36.3 ??C) Axillary (!) 129 12 98 % -- 11/26/22 2300 (!) 193/119 -- -- (!) 122 12 99 % -- 11/26/22 2204 (!) 180/117 -- -- (!) 118 12 98 % -- 11/26/22 2200 (!) 171/118 -- -- (!) 121 12 99 % -- 11/26/22 2100 (!) 158/112 -- -- (!) 122 12 100 % -- 11/26/222024 -- -- -- (!) 121 -- 100 % -- 11/26/221999 (!) 147/105 -- -- (!) 118 12 100 % -- 11/26/22 1900 (!) 157/104 -- -- (!) 120 14 100 % -- 11/26/22 1845 (!) 164/108 -- -- (!) 121 14 100 % -- 11/26/22 1830 -- -- -- (!) 120 14 99 % -- 11/26/22 1815 -- -- -- (!) 117 14 98 % -- 11/26/22 1800 109/99 -- -- (!) 118 11 100 % -- 11/26/22 1716 -- -- -- (!) 118 12 100 % -- 11/26/22 1715 (!) 163/109 -- -- (!) 118 12 100 % -- 11/26/22 1700 (!) 172/115 96.8 ??F (36 ??C) Temporal (!) 120 12 100 % -- 11/26/22 1630 (!) 200/123 -- -- (!) 128 12 100 % -- 11/26/22 1600 (!) 143/106 -- -- 107 12 100 % -- 11/26/22 1530 (!) 157/103 -- -- 104 12 100 % -- 11/26/22 1527 -- -- -- 103 -- 99 % -- 11/26/22 1500 (!) 135/102 -- -- 103 12 100 % -- General: No apparent distress, appears sedated, responds to touch ENTM: Trach in place Neck: Supple, full range of motion Lungs: ventilated breath sounds Heart: tachycardic, S1 normal, S2 physiologically split, no murmurs or gallops Abdomen: Soft, non-tender, non-distended, normal bowel sounds Extremities: No cyanosis, clubbing, or edema Skin: Warm, dry, well perfused Neuro: sedated, alert to self I have reviewed all labs, imaging, and diagnostics. Cardiology High Risk Variables Respiratory Failure - Acute respiratory failure with hypoxia Were these present on admission? Yes Associated attestation - Ryanne Harden MD - 11/27/2022 9:19 PM CDT ATTENDING PHYSICIAN NOTE Patient seen and examined with the resident. I confirm the history, exam, assessment and plan. In addition I note: Chief complaint: NSVT. History: history of R occipital stroke with L sided residual deficits, HTN, Seizure d/o, Alzheimers, PVD s/p R BKA, Dysphasia s/p PEG tube placement (02/2022) and recurrent aspirations now s/p transcervical Zenker's diverticulotomy and tracheostomy (07/15/22) that presented to there ER on 11/25/22 found to have blood from tracheostomy tube on suction noted at LT[facility] (suction was performed in the setting of congestion noted by nurses). He had a CT done with R trace bronchial debris. There was complete opacification of the R maxillary sinus. ENT evaluated the patient and he underwent laryngoscopy and nasal endoscopy with right bronchial occlusion with purulence and clot which was suctioned with improvement and left upper bronchus with continued purulence. No kate bleeding in oral cavity noted.There was a R antrochoanal polyp that occluded the R nasal cavity and R half of the choana. Bleeding was noted, afrin was applied with some resulotion but not completely resolved. Given tenuous respiratory status, ENT decided to take patikent to OR on 11/26 for removal of polyp which was completed. Procedure was complicated by Vtach on table. There was no loss of pulse, Vtach resolved and patient reverted back to NSR spontaneously. A code was called at the time. The operative note suggests that the entirety of the rhythm was less than 2 minutes with weak pulses noted. Case was aborted there after. Cardiology consultation requested. Patient has since been tachycardiac and hypertensive, currently on an esmolol and nicardipine gtt. Primary team is consulting cardiology to evaluate the NSVT rhythm and to help manage underlying HTN. No CP or SOB. ECG with AMI. CXR with hyperexpansion and left > right pleural effusions. Mild decompensated heart failure. ECHO 08/2022. Good LV function and satisfactory valve function., 11/27/22 No new Sx. Stable and repeat ECHO pending. Follow status, weight, vitals and edema, Titrate meds prn. Keep K > 4, Mg > 2, SaO2 > 92% and Hgb > 9. Social History Socioeconomic History Marital status: Single Tobacco Use Smoking status: Former Packs/day: 1.00 Years: 15.00 Pack years: 15 Types: Cigarettes Smokeless tobacco: Never Vaping Use Vaping Use: Never used Substance and Sexual Activity Alcohol use: No Comment: last drink 2015 Drug use: No Comment: occasional Sexual activity: Not Currently family history is not on file. -- Clonazepam -- Psychiatric -- hallucinations Past Medical History: No date: CVA (cerebral vascular accident) (CMS/HCC) No date: HTN (hypertension) No date: Seizure (CMS/HCC) A full 12 point review of systems was performed and was otherwise negative besides what was mentioned in the HPI. Exam: BP 128/99 Pulse 108 Temp 99.5 ??F (37.5 ??C) (Axillary) Resp 12 Ht 5' 10 Wt 154 lb1.6 oz SpO2 99% NAD. HEENT: neck supple. Atraumatic. Cor: RRR. JVD. S4 no murmur. No S3 Resp: rales bilaterally. GI: soft. NT. Ext: no edema Medications were reviewed; please see the resident's note for complete list. Data Review: pertinent lab and cardiac data reviewed Lab Results: Recent Labs Component Name 11/27/2231711/26/22 18411/26/22 0310 WBC 15.4* 17.4* 12.7* 12.7* HGB 12.4 12.5 12.5 12.5 HCT 37.2 37.2 37.9 37.9 PLTCOUNT 260 244 194 194 Recent Labs Component Name 11/27/2231711/26/22 1840 11/26/22 0310 POTASSIUM 4.2 4.2 4.0 CO2 22 19* 26 BUN 8 10 11 CREATININE 0.45* 0.41* 0.46* GLUCOSE 115 120* 91 CALCIUM 9.7 9.8 10.0 Recent Labs Component Name 08/28/22222306/27/22 2215 05/11/22 1309 INR 1.2 1.0 1.0 PT 15.2* 12.8 13.5 Recent Labs Component Name 11/25/22 0335 11/04/22 0633 10/09/22 1204 ALKPHOS 85 124 83 ALT 24 27 10 AST 24 25 15 Recent Labs Component Name 11/27/22 1542 07/04/22 0145 06/12/22 0337 TSH 1.790 1.955 2.755 No results for input(s): CKMB, TROPONIN, MYOGLOBIN in the last 16484 hours. Recent Labs Component Name 11/27/22 0328 11/26/22 2041 11/26/22 1840 HSV3LLJ 25.5 26.1 25.3 FIO2 25.0 30.0 30.0 Recent Labs Component Name 07/07/22 0345 04/11/15 0622 CHOL - 196 HDL - 81 TRIG 102 63 LDLCALC - 102* ECG reviewed: STACH, SMI, AU, long QT. CXR reviewed: CM and effusions. Assessment/Plan: NSVT. History: history of R occipital stroke with L sided residual deficits, HTN, Seizure d/o, Alzheimers, PVD s/p R BKA, Dysphasia s/p PEG tube placement (02/2022) and recurrent aspirations now s/p transcervical Zenker's diverticulotomy and tracheostomy (07/15/22) that presented to there ER on 11/25/22 found to have blood from tracheostomy tube on suction noted at LT[facility] (suction was performed in the setting of congestion noted by nurses). He had a CT done with R trace bronchial debris. There was complete opacification of the R maxillary sinus. ENT evaluated the patient and he underwent laryngoscopy and nasal endoscopy with right bronchial occlusion with purulence and clot which was suctioned with improvement and left upper bronchus with continued purulence. No kate bleeding in oral cavity noted.There was a R antrochoanal polyp that occluded the R nasal cavity and R half of the choana. Bleeding was noted, afrin was applied with some resulotion but not completely resolved. Given tenuous respiratory status, ENT decided to take patikent to OR on 11/26 for removal of polyp which was completed. Procedure was complicated by Vtach on table. There was no loss of pulse, Vtach resolved and patient reverted back to NSR spontaneously. A code was called at the time. The operative note suggests that the entirety of the rhythm was less than 2 minutes with weak pulses noted. Case was aborted there after. Cardiology consultation requested. Patient has since been tachycardiac and hypertensive, currently on an esmolol and nicardipine gtt. Primary team is consulting cardiology to evaluate the NSVT rhythm and to help manage underlying HTN. No CP or SOB. ECG with AMI. CXR with hyperexpansion and left > right pleural effusions. Mild decompensated heart failure. ECHO 08/2022. Good LV function and satisfactory valve function., Repeat ECHO pending. ECG with old AK. 11/27/22 No new Sx. Stable and repeat ECHO pending. Follow status, weight, vitals and edema, Titrate meds prn. Keep K > 4, Mg > 2, SaO2 > 92% and Hgb > 9. Please see the resident's note for further details. Ryanne Harden MD, F.A.C.C. deli manager 11/27/22 9:06 PM * Lowell Avilez RD/ONI - 11/27/2022 9:07 AM CDTAssociated Order(s): IP CONSULT TO NUTRITIONAL SERV Nutrition Re-Assessment Brief Synopsis: Patient is diagnosed with severe malnutrition; Specific criteria can be found in assessment below Nutrition Plan: NPO Start TF at 20 ml/hr, advance 10 ml q 24 hrs to be at goal by day 4 of intubation. *ESPEN guidelines recommend slow advancement rate for ICU patients* TF recommendations ON propofol- current rate of 12.58ml/hr providing 332.1 lipid kcal- Vital High Protein at goal of 50 ml/hr. Provides 1200 kcal, 105 g protein, 134 g carbohydrate, 1003 ml free water +50 ml q 6 hrs free water flush or per MD if on IVF +100 ml q4 hrs free water flush or per MD if not on additional fluids TF recommendations OFF propofol- Vital AF 1.2 Bruno at goal of 55 ml/hr. Provides 1584 kcal, 99 g protein, 146 g carbohydrate and 1070 ml free water Recommendations to Physician: See above Comments: RD consulted per vent protocol. Pt transferred to ICU after experiencing postoperative V-tach. Currently intubated and TF is being help in case of further need for OR intervention. See TF recs above when TF is unclamped. Propofol providing additional 332 lipid kcal. No pressors at this [place] e. Pt dx with malnutrition while on 8S. Last BM 11/25/22. Lytes WNL. Will continue to monitor as needed. Assessment: Med/Surg History and Clinical Diagnoses: 62 year old male w/PMHx significant for prior CVA c/b left-sided residual deficits, seizure disorder, dementia, dysphagia w/ recurrent aspiration s/p PEG, zenker divertiuculum s/p diverticulectomy 2022, chronic hypoxic respiratory faiure s/p trach 06/2022, PVD s/p L AKA, and HTN who presents [facility] from [facility]) for acute on chronic hypoxic respiratory failure and evaluation of bleeding from tracheostomy Diet order accuracy Current diet order: NPO Current supplement order: None Nutrition recommendation: alter/change nutrition order P.O.Intake for the past 48 hrs:No data recorded Supplement(s) Consumed- Last 48 hours None Food Allergies: No known food allergies GI Concerns: Other (Comment) (PEG) Chewing/Swallowing: Other (Comment) (ETT) Pain affecting intake:No Admission weight: Weight: 54.9 kg (121 lb) (11/25/22 0620) Recent Weights/Methods 09/26/2022 2112 10/02/2022 0400 10/05/2022 0445 10/05/2022 0506 10/11/2022 0400 10/12/2022 0400 11/25/2022 0620 11/27/2022 0041 Weight: 61.5 kg (135 lb 9.6 oz) 60.8 kg (134 lb) -- 54 kg (119 lb) 54.4 kg (120 lb) 54.9 kg (121 lb) 54.9 kg (121 lb) 69.9 kg (154 lb 1.6 oz) Weight Method (Utilize Scales): -- Bedscale -- Bedscale Bedscale Bedscale -- Bedscale Wt Comments: Monitoring Height: 177.8 cm (5' 10 ) IBW/lb (Calculated) Male: 166 , Laboratory values reviewed. Recent Labs Component Name 11/27/22 0318 11/26/22 1840 11/26/22 0310 11/25/22 0335 11/04/22 0633 10/12/22 0716 10/09/22 1204 BUN 8 10 11 16 14 - 14 CREATININE 0.45* 0.41* 0.46* 0.45* 0.47* - 0.39* NA 137 139 140 138 136 - 140 POTASSIUM 4.2 4.2 4.0 4.5 4.0 - 4.0 CL 104 109* 108* 108* 106 - 108* CO2 22 19* 26 26 24 - 24 GLUCOSE 115 120* 91 91 98 - 115 CALCIUM 9.7 9.8 10.0 9.5 9.7 - 9.8 PROT - - - 6.9 7.7 - 6.9 ALB 2.6* - 2.6* 2.6* 2.9* - 3.0* TBILI - - - 0.2 0.2 - 0.1* ALKPHOS - - - 85 124 - 83 ALT - - - 24 27 - 10 AST - - - 24 25 - 15 ANIONGAP 15 15 10 9 10 - 12 BCR 18 24* 24* 36* 30* - 36* OSMOLALITY 283 288 289 287 282 - 291 AGRATIO - - - 0.6* 0.6* - 0.8* EGFR >90 >90 >90 >90 >90 - >90 - = values in this interval not displayed. Medications noted. Current Facility-Administered Medications Medication ??? 0.9% NaCl injection 3 mL And ??? 0.9% NaCl injection 1-10 mL ??? acetaminophen (Tylenol) tablet 500 mg ??? artificial tears ophthalmic ointment ??? atorvastatin (Lipitor) tablet 40 mg ??? chlorhexidine (Peridex) 0.12 % oral solution 15 mL ??? cloBAZam (Onfi) tablet 20 mg ??? dextrose 10 % IV bolus Or ??? dextrose 10 % IV bolus ??? divalproex sprinkle (Depakote Sprinkle) capsule 500 mg ??? famotidine (Pepcid) tablet 20 mg ??? fentaNYL (PF) (Sublimaze) injection 50 mcg ??? folic acid (Folvite) tablet 1 mg ??? glucagon (Glucagen) injection 1 mg ??? glucose (Diabetic Use) (Dex4 Glucose) oral liquid ??? glucose (Diabetic Use) oral gel ??? glucose chew tablet 4 tablet ??? guaiFENesin (Robitussin) solution 10 mL ??? insulin lispro (HumaLOG;ADMelog) 100 UNIT/ML pen 0-6 Units ??? lacosamide (Vimpat) tablet 200 mg ??? lactated ringers infusion ??? levalbuterol (Xopenex) nebulizer solution 1.25 mg ??? levETIRAcetam (Keppra) tablet 2,000 mg ??? niCARdipine (Cardene) 20 mg in 0.9% NaCl 200 mL infusion ??? oxymetazoline (Afrin) 0.05 % nasal spray 1 spray ??? propofol (Diprivan) infusion ??? senna-docusate (Senokot-S) tablet 1 tablet ??? tamsulosin (Flomax) capsule 0.4 mg ??? thiamine (Vitamin B-1) tablet 100 mg Skin/Wound: surgical incision on nose Estimated Energy Needs: KCAL: 3564-9499 (20-25kcal/kg ABW) Protein (g): 84-139 (1.2-2.0g/kg ABW) Fluid (ml): 1 ml/kcal Needs based on: Kcal/kg- (Comment) (69.9kg) Recommended Access Route: TF Malnutrition Etiology: Malnutrition in the context of: chronic disease, Malnutrition Severity: Severe Unintended weight change: Severe weight loss Weight Loss: > 7.5% x 3 months BMI: Body mass index is 22.11 kg/m??. GI Concerns: Other (Comment) (PEG) Nutrition Focused Physical Assessment: Loss of Subcutaneous Fat Orbital: Severe Buccal: Severe Muscle Loss Temples (Temporalis Muscle): Severe Clavicles (Pectoralis & Deltoids): Severe Shoulders (Deltoids): Severe Thigh (Quadriceps): Severe Education needed: None Education Provided: Not appropriate Nutrition Care Process (1) Nutrition Diagnostic Statement: Malnutrition severity: : Severe related to:: inadequate protein-energy intake as evidenced by:: unintentional weight loss;loss of subcutaneous fat;loss of muscle mass;BMI less than 19 Nutrition Diagnostic Statement Progress: Nutrition problem continues Nutrition Intervention: Enteral nutrition: Monitoring: TF, labs, weights, BM, I/O Evaluation: Nutrition Goal: Enteral/Parenteral Nutrition prescription will be consistent with estimated nutrient needs Nutrition Goal Timeframe: Throughout stay Nutrition Goal Progress: Continue with current goal Ascom #: [id number] * Elmo Sidhu - 11/26/2022 12:28 PM CDTAssociated Order(s): IP CONSULT TO NUTRITIONAL SERV Initial Nutrition Assessment Brief Synopsis: Patient is diagnosed with severe malnutrition; Specific criteria can be found in assessment below Nutrition Plan: TF Recs for when feeding resumes: TwoCal HN at 55 ml/hr. Provides 2640 kcal, 110 g protein, 924 ml free water. 200 mL free water flush Q4H Recommendations to Physician: Code for malnutrition. Comments: RD consulted for TF recommendations. Pt is on chronic PEG tube feeds. TF is currently being held for ENT plans for OR to remove polyp that is oozing/bleeding. Spoke to pt brother. He reports that G-tube feeds have only been stopped for his surgery today. He has no issues tolerating his feeds. Plan on resuming TF order after surgery once he is cleared to receive enteral nutrition. Pt is receiving IVF, folic acid, magnesium sulfate, and thiamine. Per chart review, pt has been previouslydiagnosed with severe malnutrition. Pt has lost 19 pounds since August, which would be a 13% loss in3 months. Performed NFPE, which shows severe signs of fat/muscle loss. Pt meets ASPEN criteria for m alnutrition which was POA. Last BM 11-25. Lytes WNL. RD will continue to monitor nutritional status. Assessment: Med/Surg History and Clinical Diagnoses: 62 year old male w/PMHx significant for prior CVA c/b left-sided residual deficits, seizure disorder, dementia, dysphagia w/ recurrent aspiration s/p PEG, zenker divertiuculum s/p diverticulectomy 2022, chronic hypoxic respiratory faiure s/p trach 06/2022, PVD s/p L AKA, and HTN who presents to [facility] from [facility]) for acute on chronic hypoxic respiratory failure and evaluation of bleeding from tracheostomy Height: 177.8 cm (5' 10 ) Weight: 54.9 kg (121 lb) BMI: Body mass index is 17.36 kg/m??. BMI Range: Underweight IBW/lb (Calculated) Male: 166 , Recent Weights/Methods 09/24/2022 0400 09/26/2022 2112 10/02/2022 0400 10/05/2022 0445 10/05/2022 0506 10/11/2022 0400 10/12/2022 0400 11/25/2022 0620 Weight: 61.5 kg (135 lb 8 oz) 61.5 kg (135 lb 9.6 oz) 60.8 kg (134 lb) -- 54 kg (119 lb) 54.4 kg (120 lb) 54.9 kg (121 lb) 54.9 kg (121 lb) Weight Method (Utilize Scales): -- -- Bedscale -- Bedscale Bedscale Bedscale -- Wt Comments: Wt history reviewed, pt with recorded wt of 140 pounds earlier in August, current weight is 121 pounds. This is a 13% loss in body weight which is clinically significant. Diet order accuracy Current diet order: NPO Current supplement order: None Nutrition recommendation: alter/change nutrition order P.O.Intake for the past 48 hrs: No data recorded Food Allergies: No known food allergies Chewing/Swallowing: Other (Comment) (Trach dependent) Pain affecting intake: No Estimated Needs: KCAL: 2825-7843 (35-45 kcal/kg) Protein (g): 96-124 (20% estimated needs) Fluid (ml): 1 ml/kcal Needs based on: Kcal/kg- (Comment) (54.9 kg BW) Recommended Access Route: TF Malnutrition Etiology: Malnutrition in the context of: chronic disease, Malnutrition Severity: Severe Unintended weight change: Severe weight loss Weight Loss: > 7.5% x 3 months BMI: Body mass index is 17.36 kg/m??. GI Concerns: None Nutrition Focused Physical Assessment: Loss of Subcutaneous Fat Orbital: Severe Buccal: Severe Muscle Loss Temples (Temporalis Muscle): Severe Clavicles (Pectoralis & Deltoids): Severe Shoulders (Deltoids): Severe Thigh (Quadriceps): Severe Pertinent Nutrition Labs: Recent Labs Component Name 11/26/22 0310 11/25/22 0335 11/04/22 0633 10/12/22 0716 10/09/22 1204 BUN 11 16 14 - 14 CREATININE 0.46* 0.45* 0.47* - 0.39* NA 140 138 136 - 140 POTASSIUM 4.0 4.5 4.0 - 4.0 CL 108* 108* 106 - 108* CO2 26 26 24 - 24 GLUCOSE 91 91 98 - 115 CALCIUM 10.0 9.5 9.7 - 9.8 PROT - 6.9 7.7 - 6.9 ALB 2.6* 2.6* 2.9* - 3.0* TBILI - 0.2 0.2 - 0.1* ALKPHOS - 85 124 - 83 ALT - 24 27 - 10 AST - 24 25 - 15 ANIONGAP 10 9 10 - 12 BCR 24* 36* 30* - 36* OSMOLALITY 289 287 282 - 291 AGRATIO - 0.6* 0.6* - 0.8* EGFR >90 >90 >90 - >90 - = values in this interval not displayed. Pertinent Nutrition Medications: Current Facility-Administered Medications Medication ??? 0.9% NaCl injection 3 mL And ??? 0.9% NaCl injection 1-10 mL ??? acetaminophen (Tylenol) tablet 500 mg ??? artificial tears ophthalmic ointment ??? atorvastatin (Lipitor) tablet 40 mg ??? cloBAZam (Onfi) tablet 20 mg ??? dextrose 10 % IV bolus Or ??? dextrose 10 % IV bolus ??? divalproex sprinkle (Depakote Sprinkle) capsule 500 mg ??? folic acid (Folvite) tablet 1 mg ??? glucagon (Glucagen) injection 1 mg ??? glucose (Diabetic Use) (Dex4 Glucose) oral liquid ??? glucose (Diabetic Use) oral gel ??? glucose chew tablet 4 tablet ??? guaiFENesin (Robitussin) solution 10 mL ??? iopamidol (Isovue 370) 76 % contrast ??? lacosamide (Vimpat) tablet 200 mg ??? lactated ringers infusion ??? levalbuterol (Xopenex) nebulizer solution 1.25 mg ??? levETIRAcetam (Keppra) tablet 2,000 mg ??? magnesium sulfate 4 g in 100 mL bolus ??? oxymetazoline (Afrin) 0.05 % nasal spray ??? senna-docusate (Senokot-S) tablet 1 tablet ??? [START ON 11/27/2022] tamsulosin (Flomax) capsule 0.4 mg ??? thiamine (Vitamin B-1) tablet 100 mg Facility-Administered Medications Ordered in Other Encounters Medication ??? 0.9% NaCl infusion ??? 0.9% NaCl infusion ??? fentaNYL (PF) (Sublimaze) injection ??? phenylephrine 100 mcg/mL injection ??? propofol (Diprivan) injection ??? rocuronium (Zemuron) injection Skin/Wound: WDL Education needed: None Education Provided: Not appropriate Nutrition Care Process (1) Nutrition Diagnostic Statement: Malnutrition severity: : Severe related to:: inadequate protein-energy intake as evidenced by:: unintentional weight loss;loss of subcutaneous fat;loss of muscle mass;BMI less than 19 Nutrition Diagnostic Statement Progress: New diagnostic statement established Nutrition Intervention: Enteral nutrition: Monitoring: TF tolerance/diet advancement, labs, GI, weight Evaluation: Nutrition Goal: Enteral/Parenteral Nutrition prescription will be consistent with estimated nutrient needs Nutrition Goal Timeframe: Throughout stay Nutrition Goal Progress: New goal established Elmo Sidhu, Market Director * Iggy Rodriguez - 11/26/2022 12:18 PM CDTAssociated Order(s): IP CONSULT TO RADIOLOGY TEACHER Facility Admission Note Admitted From: [facility] Level of Care: Correction/Environmental Field Professional Care Primary Payor at Facility: Medicaid Can patient Return: Yes Facility Contact: admissions Physician Following at Facility: Does Patient/Family want them to Return?: Yes Family/Support Name/Contact: sister / [phone] Number of Skilled Days Used (if applicable): n/a Prior Level of Functioning: Dependent on facility staff Disposition/Anticipated Level of Care at Discharge: return to LTC Anticipated mode of transport: ALS Special Testing Requirements: COVID test Comments: send updates to [facility] and will follow. Pt is currently requiring hi flow O2 which will need weaned down to baseline prior to d/c CLARITA Turcios / [id number] * Aaron Elder MD - 11/25/2022 5:10 AM CDTAssociated Order(s): IP CONSULT TO OTOLARYNGOLOGY [facility] Otolaryngology Consult Note 11/25/2022 REASON FOR CONSULT: tracheal bleeding CONSULTING TEAM: ED HPI Mojgan Tabor is a 62 year old yo male w/ hx of R. Occipital stroke (2014), head injury, seizures, Alzheimer's, Right BKA, refractory epilepsy, dysphasia w/PEG tube placement on 03/25/22 previously with recurrent aspirations now s/p transcervical Zenker's diverticulectomy, tracheostomy 07/15/22 (). Patient sent to ED from facility 2/2 tracheal and oral bleeding that began last night. Also patientfound to have likely complete R bronchial occulusion with CXR. PMHx Past Medical History: Diagnosis Date ??? CVA (cerebral vascular accident) (CMS/HCC) ??? HTN (hypertension) ??? Seizure (CMS/HCC) Past Meds ??? acetaminophen (Tylenol) 500 MG tablet ??? artificial tears ophthalmic ointment ??? aspirin (Aspirin) 81 MG chew tablet ??? atorvastatin (Lipitor) 40 MG tablet ??? cetirizine (ZyrTEC) 10 MG tablet ??? cloBAZam (Onfi) 20 MG tablet ??? cloBAZam (Onfi) 20 MG tablet ??? divalproex sprinkle (Depakote Sprinkle) 125 MG capsule ??? divalproex sprinkle (Depakote Sprinkle) 125 MG capsule ??? docusate sodium (Colace) 150 MG/15ML solution ??? enoxaparin (Lovenox) 40 MG/0.4ML injection ??? fluticasone propionate (Flonase) 50 MCG/ACT nasal spray ??? folic acid (Folvite) 1 MG tablet ??? guaiFENesin (Robitussin) 100 MG/5ML solution ??? lacosamide (Vimpat) 200 MG tablet ??? lacosamide (Vimpat) 200 MG tablet ??? levalbuterol (Xopenex) 1.25 MG/3ML nebulizer solution ??? levETIRAcetam (Keppra) 1000 MG tablet ??? levETIRAcetam (Keppra) 1000 MG tablet ??? midazolam (Nayzilam) 5 MG/0.1ML nasal spray ??? midazolam (Nayzilam) 5 MG/0.1ML nasal spray ??? scopolamine (Transderm-Scop) 1 MG patch ??? senna-docusate (Senokot-S) 8.6-50 MG tablet ??? tamsulosin (Flomax) 0.4 MG capsule ??? thiamine (Vitamin B-1) 100 MG tablet Past Surgical Hx has a past surgical history that includes leg amputation, below knee (Left, 03/15/2022); endoscopy,upper (N/A, 03/25/2022); and ent surgery (N/A, 07/15/2022). Social Hx reports that he has quit smoking. His smoking use included cigarettes. He has a 15.00 pack-year smoking history. He has never used smokeless tobacco. He reports that he does not drink alcohol and does not use drugs. Allergies Allergies Allergen Reactions ??? Clonazepam Psychiatric hallucinations PEx BP 157/90 Pulse 108 Temp 98.1 ??F (36.7 ??C) (Temporal) Resp 13 SpO2 94% Constitutional: thin adult male, in mild respiratory distress. Neuro:cranial nerves III-XII grossly intact CV/Pulm: tachycardic with significant bloody/purulent tracheal secretions. On HF trach collar stating 99% Eyes: PERRL, EOMI Face/Skin: normal appearance, no lesions/masses Ears: Normal external auditory canals bilaterally. Nose: patent bilaterally, no septal deviation, Turbinates intact, Mucosal membranes intact - see procedure note Mouth and oropharynx: symmetric tongue mobility, no lesions/masses/ulcers Neck: supple, no lymphadenopathy, no masses 6.0 TTS bivona with cuff deflated. MusculoSkeletal: moves all extremities well PROCEDURE NOTE Endoscopy Type: Laryngoscopy without stroboscopy, tracheoscopy and nasal endoscopy Endoscope: Flexible 4mm Scope Procedure Details: The patient was sitting upright in bed, the scope was initially passed through PEEP keep adapter and significant bloody secretions were noted. These were suctioned with flexible suction catheter. Scope then revealed complete right bronchial occlusion with purulence and clot. These were suctioned away with bronchial lavage with significant improvement in right lower bronchus, left upper bronchus with continued purulence. The tracheostomy tube was then removed and tracheoscopy performed through well healed stoma and retroflexed to view inferior surface of vocal cords where blood was pooling down through glottis. There was no kate bleeding within the oral cavity, but the oropharynx had streaming blood from nasopharynx. Nasal endoscopy was performed and demonstrated what appears to be a right antrochoanal polyp that completely occludes right nasal cavity and the right half of the choana. Left nasal cavity patent. The polyp appeared to have some bleeding, however kate source unable to be visualized. Copious amounts of afrin instilled into nasal cavity with overall improved, but not fully resolved hemostasis. Condition: Stable. Patient tolerated procedure well. Complications: None LABS CBC Recent Labs Component Name 11/24/227 11/04/2233 11/01/22 0644 WBC 10.5 7.4 6.8 HGB 11.5* 14.2 13.5 HCT 35.9 44.4 42.3 PLTCOUNT 225 169 185 BMP Recent Labs Component Name 11/25/225 11/04/22 0633 11/01/22 0644 NA 138 136 139 POTASSIUM 4.5 4.0 4.0 CL 108* 106 106 CO2 26 24 27 BUN 16 14 14 CREATININE 0.45* 0.47* 0.51* GLUCOSE 91 98 90 Ca/Mg/Phos Recent Labs Component Name 11/25/22 0335 11/04/22 0633 11/01/22 0644 10/30/22 0546 CALCIUM 9.5 9.7 9.6 9.9 MAGNESIUM 1.7 1.8 1.8 1.8 PHOS - 3.0 3.2 2.7* LFTs Recent Labs Component Name 11/25/22 0335 11/04/22 0633 10/09/22 1204 08/28/22 1251 06/30/22 1039 03/03/18 1745 01/30/18 1255 11/28/17 0455 10/14/17 1349 ALB 2.6* 2.9* 3.0* - 2.2* - 3.7 - 3.9 AST 24 25 15 - 13 - 14 - 18 ALT 24 27 10 - 5 - 10 - 9 ALKPHOS 85 124 83 - 65 - 75 - 86 TBILI 0.2 0.2 0.1* - 0.3 - 0.4 - 0.6 DBILI - - - - 0.2 - 0.2 - 0.2 - = values in this interval not displayed. IMAGING CT Head from 05/2022 personally reviewed and demonstrates right nasal cavity and maxillary sinus opacification with concern for likely antrochoanal polyp. ASSESSMENT & PLAN Mojgan Tabor 62 year old male with medical complexity, including tracheostomy dependence and known antrochoanal polyp. Currently the polyp appears to be bleeding, however hemostasis is improved aftertopical afrin. Right main bronchus with improved ventilation after suctioning/lavage (large amountsof purulence removed). - No acute otolaryngologic intervention at this time - Appreciate systemic TXA if patient is a candidate from a medical perspective. - Agree with CT Chest to evaluate for PNA. - Please obtain CT Sinus with and without contrast to better describe polyposis. - Afrin PRN Please page ENT with any questions or concerns, Jefferson Raymundo MD Otolaryngology - Head & Neck Surgery 11/25/22 5:10 AM ADDENDUM Examined later in morning during morning rounds, still with oozing on right side of nose and posteriorly in oropharynx. Applied additional Afrin and applied Surgiflo (absorbable thrombin gelatin) into right nasal cavity. Will continue to follow Aaron Elder MD Otolaryngology - Head and Neck Surgery 11/25/2022 Associated attestation - Alden Hurtado MD - 11/25/2022 3:35 PM CDT Attending Physician Supervisory Note I personally interviewed and examined the patient and agree with the Resident above. In addition I note: Known to me for prior zenker's and tracheostomy, now found to have bleeding from antrochonal polyp also with concern for pneumonia. Bleeding now controlled with topical treatments and packing. Can consider excision of the polyp on an elective bases, possibly this admission depending on the pulmonary status. Alden Hurtado MD documented in this encounter OR Notes * Brief Op Note - Krystal Stock MD - 12/14/2022 4:08 PM CDT Vascular & Interventional Radiology Brief Post-Procedure Note Patient: Mojgan Tabor Attending: Krystal Stock MD Deaf Interpreter: None Diagnosis/Indication: Dysphagia Procedure: Image guided G to GJ tube conversion Findings: Tip of GJ tube in the proximal jejunum Anesthesia: Local with 1% Lidocaine Additional medications given: None Estimated blood loss: Minimal Specimens: None Immediate complications: None Follow-up: GJ tube may be used immediately. Please use jejunal port for tube feeds. Flush ports with 30 cc of water after use. Use liquid formulations only for medications Time out and final pre-procedure assessment completed immediately prior to start of procedure. Intra-procedure orders and medication record reviewed. Medications and doses administered by staff as verbally ordered. See detailed procedure note with images in PACS. * Brief Op Note - Rodrigo Lobo MD - 11/26/2022 12:04 PM CDT Brief Op Note Procedure: Bilateral Nasal Endoscopy, Right polypectomy, Right Maxillary Antrostomy, Right AnteriorEthmoidectomy Patient Name: Mojgan Tabor Date of Service: 11/26/2022 Pre-Op Diagnosis: Polyp of right nasal cavity [J33.0] Post-Op Diagnosis: Same Surgeon(s) and Role: * Alden Hurtado MD - Primary * Rodrigo Lobo MD - Resident - Assisting Deaf Interpreter(s): none Anesthesia Type: general Complications: v-tach on table, did not lose pulse, code called, spontaneous conversion to sinus rhythm after 2-3 minutes Findings: right antrochoanal polyp that was removed and sent for path, maxillary antrostomy and anterior ethmoidectomy performed EBL: blood loss of 75 ml Urine Output : none IV Fluid Intake: see anesthesia Drains: Enteral - Percutaneous Endoscopic Gastrostomy Abdomen;Midline;Upper (Active) Surrounding Skin Dry;Intact 11/26/22 1018 Tube Status Clamped 11/26/22 0900 Gastric Output Description Green 11/25/22 2300 Position verified Stomach contents obtained 11/26/22 0900 Gastric Residual Amount (ML) 5 ML 11/26/22 0554 Gastric Flush Amount 200 ML 11/26/22 0921 Gastric Flush Type Water 11/26/22 0900 Site Assessment WD 11/26/22 1018 Dressing Type Gauze 11/26/22 1018 Graduated Cylinder Change Date 11/26/22 11/26/22 0554 Tube Feed Syringe Change Date 11/26/22 11/26/22 0554 Specimen(s): ID Type Source Tests Collected by Time Destination A : right nasal polyps Biopsy, Excision Nasal/Sinus Polyps PATHOLOGY TISSUE Rodrigo Lobo MD 11/26/2022 1226 Implant(s): * No implants in log * Rodrigo Lobo MD * Operative - Alden Hurtado MD - 11/26/2022 12:04 PM CDT Operative Report Name: Mojgan Tabor 1960 Age: [age] year old Proc Date: 11/26/22 Sex: male PREOPERATIVE DIAGNOSES: 1. Right antrochonal polyp POSTOPERATIVE DIAGNOSES: 1. same SURGEON: Alden Hurtado MD RESIDENT: Roscoe Lobo MD PROCEDURES: 1. Right maxillary antrostomy with polypectomy 2. Right anterior ethmoidectomy FINDINGS: 1. Large soft polyp eminating from the maxillary sinus and extending into the nasopharynx INDICATIONS FOR PROCEDURE: The patient is a 62 year old male with a history of dementia, seizures, chronic aspiration and Zenker's diverticulum status post diverticulectomy, chronic respiratory failure requiring tracheostomy who presented with blood in his trachea and was found to have epistaxis from a antrochoanal polyp. This was temporarily controlled with packing while he was evaluated for possible pneumonia. Once his respiratory status was clarified I recommended proceeding to the operatingroom for polypectomy for definitive management. This was discussed with his sister who is his powerof county attorney and she was agreement to proceeding. DESCRIPTION OF PROCEDURE: The patient was brought to the operating room and placed in the supine position on the operating table. General anesthesia was induced. he was ventilated through his existing cuffed tracheostomy. The nasal cavities were decongested with topical Afrin. Patient was then draped in usual sterile fashion. The packing was removed from the right nasal cavity. Some blood clots along the millimeters were suctioned. We then went to visualize the pollinating from the maxillary sinus and extending back to the nasopharynx. A microdebrider was used to amputate the stalk and the polyp was removed and sent from the pathology. The debrided some additional polypoid tissue from the middle meatus. The maxillary sinus entered the ball probe and the sinus opening was widely opened. The ethmoid bulla was opened sharply. At this point while we were continued with the procedure to opensome partially opacified sinuses including the right sphenoid and frontal the patient had sudden EKG changes consistent with ventricular tachycardia. A code was called. He maintained weak but palpable pulses while the defibrillator pads were replaced after which she spontaneously reverted back to sinus rhythm with a strong palpable pulse and blood pressure of 130s over 80s. The entirety of the arrhythmia was less than 2 minutes. Given his unexplained cardiac event we elected to defer any further sinus surgery. The nasal cavity was suctioned. Mild bleeding was controlled with epinephrine soaked pledgets. Two pieces of NexFoam were placed into the middle meatus. The patient was then returned to the care of the anesthesiologist and taken to recovery in stable condition. COMPLICATIONS: None. ESTIMATED BLOOD LOSS: 50 mL DISPOSITION: pending cardiac evaluation Alden Hurtado MD documented in this encounter ED Notes * Davion Nicholas RN - 11/25/2022 8:31 PM CDT Report called to ALFRED Ledesma at [phone] for pt transfer to room 3. * Davion Nicholas RN - 11/25/2022 8:17 PM CDT Attempted to call report on pt to ALFRED Ledesma at [phone]. RN currently in with another patient, will call back once complete. * Sharla Arzate RN - 11/25/2022 5:42 PM CDT Alternate nurse has been contacting the providers in reference to vital signs and various needs of the patients * Sandhya Burnett RN - 11/25/2022 5:00 PM CDT Patients nose began to bleed again from right nares. MD Macias notified and came to assess pt. Per MD Macias, he will contact ENT regarding epistaxis and he is not overly concerned about hypertension. ENT will come to assess pt after a surgical case later today. * Sandhya Burnett RN - 11/25/2022 3:45 PM CDT Called respiratory ([facility]) requesting suctioning and assessment of airway patency * Sharla Arzate RN - 11/25/2022 11:44 AM CDT Admitting team has been at bedside * Sharla Arzate RN - 11/25/2022 10:16 AM CDT ENT has been at bedside for patient assessment. Packing to the right naris. * Ryanne Hanson MD - 11/25/2022 6:12 AM CDT ASSUMED CARE NOTE Patient signed out to me by Dr. Marinelli at 6:00 AM. Briefly, Mojgan Tabor is a 62 year old male is being evaluated for hemoptysis. Patient has a history of a tracheostomy. ENT was consult and scoped the patient. The patient has a bleeding polyp in theposterior oropharynx. At this time the patient's condition is Stable. Pending medicine assumption of care. Plan is to admit to internal medicine. Vitals: 11/25/22 0245 11/25/22 0259 11/25/22 0336 11/25/22 0620 BP: 157/90 Pulse: (!) 112 (!) 115 108 Resp: 13 Temp: SpO2: 93% 96% 94% Weight: 54.9 kg (121 lb) Height: 1.778 m (5' 10 ) Clinical Impression: 1. Pneumonia of right lung due to infectious organism, unspecified part of lung 2. Hemoptysis 3. Nasal polyp 4. Tracheostomy in place (CMS/HCC) Disposition: Admit to Internal Medicine By signing my name below, I, Antionette Amato, attest that this documentation has been prepared underthe direction and in the presence of Dr. Hanson. Signed: Laisha Hodgson. I, Dr. Hanson, personally performed the services described in this documentation. All medical record entries made by the scribe were at my direction and in my presence. I have reviewed the chart and agree that the record reflects my personal performance and is accurate and complete. * Arthur Marinelli MD - 11/25/2022 12:07 AM CDT Emergency Medicine Attending Note Patient seen as a team with the resident physician, Dr. Cruz and Dr. Cortez. Interval History : Chief Complaint Patient presents with ??? HEMOPTYSIS Pt BIBEMS due to blood noted while suctioning patient trachCarter Tabor is a 62 year old male with a PMHx of stroke, was discharged from [facility] on 11/09/2022. She is presenting to the ED BIBEMS from [facility] in [place] for concerns of tracheostomy bleeding. EMS states he sounded obstructive and was gurgling in the upper airway. Upon suction, there were concerns that trauma occurred. During his stay Past Medical History: Diagnosis Date ??? CVA (cerebral vascular accident) (CMS/HCC) ??? HTN (hypertension) ??? Seizure (CMS/HCC) Past Surgical History: Procedure Laterality Date ??? ENDOSCOPY, UPPER N/A 03/25/2022 N/A; ESOPHAGOGASTRODUODENOSCOPY (EGD) DIAGNOSTIC with PEG Placement ??? ENT SURGERY N/A 07/15/2022 N/A; TRANSCERVICAL ZENKERS DIVERTICULECTOMY, OPEN TRACHEOSTOMY ??? Leg Amputation, Below Knee Left 03/15/2022 Left; LEFT BKA POSS AKA Social History Socioeconomic History ??? Marital status: [...] Social Determinants of Health Financial Resource Strain: Unknown (08/29/2022) Overall Financial Resource Strain (CARDIA) ??? Difficulty of Paying Living Expenses: Patient refused Food Insecurity: No Food Insecurity (08/29/2022) Hunger Vital Sign ??? Worried About Running Out of Food in the Last Year: Never true ??? Ran Out of Food in the Last Year: Never true Transportation Needs: No Transportation Needs (08/29/2022) PRAPARE - Transportation ??? Lack of Transportation (Medical): No ??? Lack of Transportation (Non-Medical): No Stress: No Stress Concern Present (08/29/2022) [employer] - Occupational Stress Questionnaire ??? Feeling of Stress : Not at all Housing Stability: Low Risk (08/29/2022) Housing Stability Vital Sign ??? Unable to Pay for Housing in the Last Year: No ??? Number of Places Lived in the Last Year: 1 ??? Unstable Housing in the Last Year: No Allergies Allergen Reactions ??? Clonazepam Psychiatric hallucinations Review of Systems: (+) positive Review of Systems Unable to perform ROS: Patient nonverbal (ROS limited 2/2 mental acuity. ) Physical Exam Vitals: 11/25/22 0245 11/25/22 0259 11/25/22 0336 11/25/22 0620 BP: 157/90 Pulse: (!) 112 (!) 115 108 Resp: 13 Temp: SpO2: 93% 96% 94% Weight: 54.9 kg (121 lb) Height: 1.778 m (5' 10 ) Physical Exam Constitutional: General: He is not in acute distress. Appearance: He is not ill-appearing, toxic-appearing or diaphoretic. Comments: Chronically ill-appearing HENT: Head: Normocephalic and atraumatic. Nose: Nose normal. Mouth/Throat: Mouth: Mucous membranes are moist. Pharynx: Oropharynx is clear. Eyes: Pupils: Pupils are equal, round, and reactive to light. Comments: Pupils 2mm and reactive, no nystagmus appreciated Neck: Comments: Tracheostomy in place with dried blood at the opening. Cardiovascular: Rate and Rhythm: Regular rhythm. Tachycardia present. Pulses: Normal pulses. Comments: On R leg, dps intact Pulmonary: Effort: Pulmonary effort is normal. No respiratory distress. Breath sounds: Normal breath sounds. Abdominal: General: Abdomen is flat. Bowel sounds are normal. There is no distension. Palpations: Abdomen is soft. Tenderness: There is no abdominal tenderness. There is no guarding. Comments: G-Tube in place. Musculoskeletal: General: No tenderness. Normal range of motion. Cervical back: Normal range of motion and neck supple. Comments: No peripheral edema. Left AKA. Skin: General: Skin is warm and dry. Neurological: General: No focal deficit present. Mental Status: He is oriented to person, place, and time. Mental status is at baseline. Comments: Follows simple commands but is non-verbal Psychiatric: Mood and Affect: Mood normal. Behavior: Behavior normal. Medical Decision Making: Problem List: 1. Tracheostomy bleeding - Ddx: Airway injury 2/2 laryngeal trauma vs other - PLAN: EKG, lab work, possible discharge see below for further orders/plan. Orders Placed This Encounter ??? XR CHEST 1VW PORTABLE ??? CT CHEST W CONTRAST ??? CT SINUS WWO CONTRAST ??? COMPREHENSIVE METABOLIC PANEL ??? CBC W AUTO DIFFERENTIAL ??? MAGNESIUM BLOOD ??? URINALYSIS REFLEX MICROSCOPIC REFLEX CULTURE ??? IP CONSULT TO OTOLARYNGOLOGY ??? EKG 12-LEAD ??? lactated ringers IV bolus ??? lidocaine (Xylocaine) 1 % injection ??? lidocaine (Xylocaine PF) 1% injection ADS Med ??? oxymetazoline (Afrin) 0.05 % nasal spray 1 spray ??? vancomycin (Vancocin) IV dose per pharmacy ??? cefTRIAXone (Rocephin) 2,000 mg in 0.9% NaCl IV 50 mL IVPB ??? vancomycin (Vancocin) 1,500 mg in 500 mL NaCl IVPB Premix ??? DISCONTD: tranexamic acid (Cyklokapron) 2,000 mg in 0.9% NaCl IV 120 mL bolus ??? tranexamic acid (Cyklokapron) 1,000 mg in 0.9% NaCl IV 110 mL bolus ??? tranexamic acid (Cyklokapron) 1,000 mg in 0.9% NaCl IV 110 mL infusion ??? iopamidol (Isovue 370) 76 % contrast Data Review: (All Labs/Imaging/ECG, other diagnostics independently interpreted by me.) - MONITORING: The patient's Negotiator Sales Rhythm was interpreted by me. The environmental assistant showed 113. The patient's Oxygen Saturation Monitor was interpreted by me. The reading was 96%. The patient wason RA at the time of the reading. This is interpreted as normal. - ECG: Interpreted by me: Date: 11/25/2022 Time: 2344 R&R: Sinus tachycardia with a ventricular rate of 116 bpm Additional findings: - LABS: Labs Reviewed COMPREHENSIVE METABOLIC PANEL - Abnormal; Notable for the following components: Result Value Creatinine 0.45 (*) Chloride 108 (*) Albumin 2.6 (*) BUN/Creatinine Ratio 36 (*) Albumin/Globulin Ratio 0.6 (*) All other components within normal limits CBC W AUTO DIFFERENTIAL - Abnormal; Notable for the following components: RBC 3.75 (*) Hemoglobin 11.5 (*) RDW-SD 54.8 (*) RDW-CV 15.9 (*) nRBC Absolute 0.04 (*) nRBC Auto 0.4 (*) All other components within normal limits MAGNESIUM BLOOD - Normal URINALYSIS REFLEX MICROSCOPIC REFLEX CULTURE Narrative: TYPE + SCREEN PANEL - IMAGING: XR CHEST 1VW PORTABLE (Results Pending) CT CHEST W CONTRAST (Results Pending) CT SINUS WWO CONTRAST (Results Pending) No results found. - MEDS: Medications lidocaine (Xylocaine) 1 % injection (has no administration in time range) lidocaine (Xylocaine PF) 1% injection ADS Med (has no administration in time range) oxymetazoline (Afrin) 0.05 % nasal spray 1 spray (has no administration in time range) vancomycin (Vancocin) IV dose per pharmacy (has no administration in time range) cefTRIAXone (Rocephin) 2,000 mg in 0.9% NaCl IV 50 mL IVPB (0 mg Intravenous Stopped 11/25/22 0600) vancomycin (Vancocin) 1,500 mg in 500 mL NaCl IVPB Premix (1,500 mg Intravenous $ New Bag/Syringe 11/25/22 0558) tranexamic acid (Cyklokapron) 1,000 mg in 0.9% NaCl IV 110 mL infusion (1,000 mg Intravenous $ New Bag/Syringe 11/25/22 0503) iopamidol (Isovue 370) 76 % contrast (100 mL Intravenous $ Given - Contrast 11/25/22 0623) lactated ringers IV bolus (0 mL Intravenous Stopped 11/25/22 0100) tranexamic acid (Cyklokapron) 1,000 mg in 0.9% NaCl IV 110 mL bolus (0 mg Intravenous Stopped 11/25/22 0522) ED COURSE 2350: Per radiology report, CXR shows A tracheostomy tube terminates within the mid thoracic trachea. There is complete collapse of the right middle lobe, partial collapse of the right lower lobe, and suspected partial collapse of the right upper lobe. There is resulting rightward mediastinal shift. An abrupt cut off within the right mainstem bronchus may represent right-sided intraluminal debris. The left lung is clear. There is no evidence of pneumothorax or pleural effusion. The cardiomediastinal silhouette is obscured on the right. The visible bony thorax is intact. 0100: Labs interpreted by me. Patient is negative for antibodies and O+. Urinalysis is clean and negative for any infections. CBC insignificant except for lowered hemoglobin at 11.5 Otherwise, all labs are stable. 0239: ENT consulted, they will come see patient. 0300: The resident and myself replaced patient's ultrasound guided IVS. I ws present for critical portions of the procedure performed by the resident. 0348: ENT at bedside. 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 0445: ENT believes he is bleeding from a polyp. They want a CT of sinus and chest. 0500: Patient has been admitted to medicine. After discussion with medicine, the patient will be admitted to their service for further management of pneumonia of R beata. Admitting provider is Dr. Nails. - I have reviewed the diagnostic findings with the patient and they have had an opportunity to ask me any questions they have about care, diagnosis, and reason for admission. The patient states understanding and agrees to admission. Orders and Medicine administered during this encounter: Orders Placed This Encounter ??? XR CHEST 1VW PORTABLE ??? CT CHEST W CONTRAST ??? CT SINUS WWO CONTRAST ??? COMPREHENSIVE METABOLIC PANEL ??? CBC W AUTO DIFFERENTIAL ??? MAGNESIUM BLOOD ??? URINALYSIS REFLEX MICROSCOPIC REFLEX CULTURE ??? IP CONSULT TO OTOLARYNGOLOGY ??? EKG 12-LEAD ??? lactated ringers IV bolus ??? lidocaine (Xylocaine) 1 % injection ??? lidocaine (Xylocaine PF) 1% injection ADS Med ??? oxymetazoline (Afrin) 0.05 % nasal spray 1 spray ??? vancomycin (Vancocin) IV dose per pharmacy ??? cefTRIAXone (Rocephin) 2,000 mg in 0.9% NaCl IV 50 mL IVPB ??? vancomycin (Vancocin) 1,500 mg in 500 mL NaCl IVPB Premix ??? DISCONTD: tranexamic acid (Cyklokapron) 2,000 mg in 0.9% NaCl IV 120 mL bolus ??? tranexamic acid (Cyklokapron) 1,000 mg in 0.9% NaCl IV 110 mL bolus ??? tranexamic acid (Cyklokapron) 1,000 mg in 0.9% NaCl IV 110 mL infusion ??? iopamidol (Isovue 370) 76 % contrast Medications lidocaine (Xylocaine) 1 % injection (has no administration in time range) lidocaine (Xylocaine PF) 1% injection ADS Med (has no administration in time range) oxymetazoline (Afrin) 0.05 % nasal spray 1 spray (has no administration in time range) vancomycin (Vancocin) IV dose per pharmacy (has no administration in time range) cefTRIAXone (Rocephin) 2,000 mg in 0.9% NaCl IV 50 mL IVPB (0 mg Intravenous Stopped 11/25/22 0600) vancomycin (Vancocin) 1,500 mg in 500 mL NaCl IVPB Premix (1,500 mg Intravenous $ New Bag/Syringe 11/25/22 0558) tranexamic acid (Cyklokapron) 1,000 mg in 0.9% NaCl IV 110 mL infusion (1,000 mg Intravenous $ New Bag/Syringe 11/25/22 0503) iopamidol (Isovue 370) 76 % contrast (100 mL Intravenous $ Given - Contrast 11/25/22 0623) lactated ringers IV bolus (0 mL Intravenous Stopped 11/25/22 0100) tranexamic acid (Cyklokapron) 1,000 mg in 0.9% NaCl IV 110 mL bolus (0 mg Intravenous Stopped 11/25/22 0522) Clinical Impression: 1. Pneumonia of right lung due to infectious organism, unspecified part of lung 2. Hemoptysis 3. Nasal polyp 4. Tracheostomy in place ([facility]) Disposition: Admit to Medicine By signing my name below, I, Jaime Danielson, attest that this documentation has been prepared under the direction and in the presence of Dr. Marinelli. Signed: Laisha Gay. Date: 11/25/2022. I, Dr. Marinelli, personally performed the services described in this documentation. All medical record entries made by the scribe were at my direction and in my presence. I have reviewed the chart and agree that the record reflects my personal performance and is accurate and complete. * Mart Cuellar RN - 11/24/2022 11:34 PM CDT Pt BIBEMS due to blood noted while suctioning patient trach. * Cami Robin RN - 11/24/2022 11:31 PM CDT Bed: [facility] Expected date: Expected time: Means of arrival: Comments: Melissa 1342 ETA 20 min 62M bleeding from trach, suctioning blood, no distress, 96% on blow by. documented in this encounter Miscellaneous Notes * Coding Query - Feliciano Madrid MD - 12/15/2022 2:43 PM CDT DOCUMENTATION CLARIFICATION REQUEST Use the F2 function alanis to complete the query. Click on ???Sign?? to file the note. TO: Dr. Madrid FROM: Agnieszka Palumbo RN [facility], Email: [email or web address] Patient Name: Mojgan Tabor Please clarify the present on admission status of ventilator associated pneumonia: - Ventilator associated pneumonia is present on admission, patient with pneumonia on admission and arrived on ventilator - Ventilator associated pneumonia, developed after admission - Other (please specify) - Ventilator associated pneumonia, unable to clinically determine the present on admission status The medical record reflects the following: o Risk Factors: aspiration pneumonia, acute on chronic respiratory failure, mechanical ventilator, hemoptysis, tracheostomy in place on admission, nasal culture on 11/25 + MRSA, sputum culture on 11/28 + pseudomonas and acinotobacter, history of numerous episodes of aspiration/HCAP pneumonia o Clinical Findings: ED Note 11/25 pneumonia of right lung due to infectious organism, hemoptysis, tracheostomy in place H&P 11/26 patient arrived on ventilator Critical Care Note 11/28 course complicated by presumed ventilator associated pneumonia IM Note 12/15 concern for ventilator associated pneumonia resolved o Treatment: antibiotics, monitoring cultures, mechanical ventilator, tracheostomy care PROVIDER RESPONSE (Use F2 to respond) - Ventilator associated pneumonia, unable to clinically determine the present on admission status Please provide your clinical opinion and findings to support the diagnosis in the progress notes & carry it through into your discharge summary. THIS DOCUMENT IS MAINTAINED A PERMANENT PART OF THE MEDICAL RECORD. * Significant Event - Rodrigo Lobo MD - 11/26/2022 1:06 PM CDT ENT Plan of Care During case patient converted to ventricular tachycardia on the dye weigher helper. Case was aborted. Code blue was called. Carotid pulse weak but palpable. Patient was rolled for defibrillator paddle placement and then spontaneously converted to sinus tachycardia. V-tach lasted 2-3 minutes. When stabilized, right nasal cavity was suctioned and then packed with absorbables. Anesthesia recommended ICU transfer for cardiac monitoring and workup. Rodrigo Lobo MD Otolaryngology - Head & Neck Surgery 11/26/2022 1:31 PM * Coding Query - Neville Hewitt III, MD - 11/26/2022 1:05 PM CDT DOCUMENTATION CLARIFICATION REQUEST Use the F2 function alanis to complete the query. Click ???Sign?? to file the note. TO: Dr. Hewitt FROM: Agnieszka Palumbo RN CCDS, Email: [email or web address] Patient Name: Mojgan Tabor Please review the clinical information below and clarify the type of pneumonia: ??? MRSA pneumonia ??? Pseudomonas aeruginosa pneumonia ??? Aspiration pneumonia ??? Other type of pneumonia (please specify) ??? Other (please specify) ??? Unable to determine The medical record reflects the following: o Risk Factors: from LTAC, dysphagia with PEG tube placement with recurrent aspiration s/p transcervical Zenker's diverticulectomy, tracheostomy placed 07/15/22, numerous episodes of aspiration pneumonia and HCAP, Alzheimer's dementia, acute on chronic respiratory failure o Clinical Findings: ED Note 11/25 pneumonia Otolaryngology Note 11/26 oozing from right nare, blood tinged secretions suctioned, MRSA +, now with concern for pneumonia and intermittent bleeding from antrochoanal polyp, right main bronchus with improved ventilation after suctioning/lavage (large amounts of purulence removed) Chest CT 11/25 trace amount of debris in right main bronchus, improved atelectasis, minimal debris in trachea proximal to tracheostomy tube CXR 11/25 complete collapse of RML and RLL, rightward mediastinal shift, an abrupt cut off within the right mainstem bronchus may represent mucous plug or other debris, mild atelectasis in left base 11/25 Nasal Swab MRSA + 11/28 Sputum Culture heavy Pseudomonas aeruginosa, moderate Acinetobacter baumannii o Treatment: IV Rocephin x 1 dose (given on 11/25), IV Vancomycin (started on 11/25), suctioning, IV Zosyn (started on 11/28), IV Cefepime (started on 12/01) PROVIDER RESPONSE (Use F2 to respond) Aspiration pneumonia Please provide your clinical opinion and findings to support the diagnosis in the progress notes & carry it through into your discharge summary. THIS DOCUMENT IS MAINTAINED A PERMANENT PART OF THE MEDICAL RECORD. documented in this encounter Plan of Treatment Upcoming Encounters Date Type Department Care Team (Late st Contact Info) Description 12/05/2024 1:00 PM CDT Office Visit [facility] - Neurology [address] [place] [address], [place] [address] Sean Raymundo, [address] [place] [id number] Scheduled Orders Name Type Priority Associated Diagnoses Orde r Schedule EKG 12-LEAD ECG Routine Uncontrolled hypertension ONCE for 1 Occurrences starting 12/01/2022 until 12/01/2022 documented as of this encounter Procedures Procedure Name Priority Date/Time Associated Diagnosis Comments CARDIAC EKG ORDER 12/17/2022 2:4 8 PM CDT GLUCOSE - POINT OF CARE Routine 12/16/2022 2:08 PM CDT GLUCOSE - POINT OF CARE Routine 12/16/2022 5:49 AM CDT RBC MORPHOLOGY Routine 12/16/2022 3:49 AM CDT CBC W AUTO DIFFERENTIAL Routine 12/16/2022 3:49 AM CDT RENAL FUNCTION PANEL Routine 12/16/2022 3:49 AM CDT MAGNESIUM BLOOD Routine 12/16/2022 3:49 AM CDT GLUCOSE - POINT OF CARE Routine 12/15/2022 11:34 PM CDT GLUCOSE - POINT OF CARE Routine 12/15/2022 5:52 PM CDT GLUCOSE - POINT OF CARE Routine 12/15/2022 12:58 PM CDT CBC W AUTO DIFFERENTIAL Routine 12/15/2022 8:18 AM CDT RENAL FUNCTION PANEL Routine 12/15/2022 8:18 AM CDT MAGNESIUM BLOOD Routine 12/15/2022 8:18 AM CDT GLUCOSE - POINT OF CARE Routine 12/15/2022 7:15 AM CDT GLUCOSE - POINT OF CARE Routine 12/15/2022 6:13 AM CDT GLUCOSE - POINT OF CARE Routine 12/15/2022 1:10 AM CDT GLUCOSE - POINT OF CARE Routine 12/14/2022 8:59 PM CDT GLUCOSE - POINT OF CARE Routine 12/14/2022 4:38 PM CDT IR PERC G TO GJ TUBE EXCHANGE Routine 12/14/2022 4:07 PM CDT PEG (percutaneous endoscopic gastrostomy) status (HCC) GLUCOSE - POINT OF CARE Routine 12/14/2022 12:34 PM CDT XR CHEST 1VW PORTABLE STAT 12/14/2022 8:55 AM CDT COVID-19 GLUCOSE - POINT OF CARE Routine 12/14/2022 8:47 AM CDT CBC W AUTO DIFFERENTIAL Routine 12/14/2022 6:38 AM CDT RENAL FUNCTION PANEL Routine 12/14/2022 6:38 AM CDT MAGNESIUM BLOOD Routine 12/14/2022 6:38 AM CDT GLUCOSE - POINT OF CARE Routine 12/14/2022 3:29 AM CDT GLUCOSE - POINT OF CARE Routine 12/14/2022 12:21 AM CDT GLUCOSE - POINT OF CARE Routine 12/13/2022 8:47 PM CDT GLUCOSE - POINT OF CARE Routine 12/13/2022 4:05 PM CDT GLUCOSE - POINT OF CARE Routine 12/13/2022 11:27 AM CDT CBC W AUTO DIFFERENTIAL Routine 12/13/2022 11:18 AM CDT GLUCOSE - POINT OF CARE Routine 12/13/2022 7:57 AM CDT GLUCOSE - POINT OF CARE Routine 12/13/2022 4:34 AM CDT PT-INR [facility] AM Draw 12/13/2022 1:46 AM CDT RENAL FUNCTION PANEL Routine 12/13/2022 1:46 AM CDT MAGNESIUM BLOOD Routine 12/13/2022 1:46 AM CDT GLUCOSE - POINT OF CARE Routine 12/13/2022 12:48 AM CDT GLUCOSE - POINT OF CARE Routine 12/12/2022 10:08 PM CDT GLUCOSE - POINT OF CARE Routine 12/12/2022 5:13 PM CDT CBC W AUTO DIFFERENTIAL Routine 12/12/2022 3:30 PM CDT GLUCOSE - POINT OF CARE Routine 12/12/2022 12:49 PM CDT GLUCOSE - POINT OF CARE Routine 12/12/2022 8:47 AM CDT GLUCOSE - POINT OF CARE Routine 12/12/2022 4:24 AM CDT RENAL FUNCTION PANEL Routine 12/12/2022 3:42 AM CDT MAGNESIUM BLOOD Routine 12/12/2022 3:42 AM CDT GLUCOSE - POINT OF CARE Routine 12/12/2022 12:49 AM CDT GLUCOSE - POINT OF CARE Routine 12/11/2022 8:44 PM CDT GLUCOSE - POINT OF CARE Routine 12/11/2022 4:52 PM CDT GLUCOSE - POINT OF CARE Routine 12/11/2022 1:46 PM CDT GLUCOSE - POINT OF CARE Routine 12/11/2022 9:41 AM CDT GLUCOSE - POINT OF CARE Routine 12/11/2022 4:57 AM CDT CBC W AUTO DIFFERENTIAL Routine 12/11/2022 4:02 AM CDT RENAL FUNCTION PANEL Routine 12/11/2022 4:02 AM CDT MAGNESIUM BLOOD Routine 12/11/2022 4:02 AM CDT GLUCOSE - POINT OF CARE Routine 12/11/2022 12:55 AM CDT GLUCOSE - POINT OF CARE Routine 12/10/2022 8:30 PM CDT GLUCOSE - POINT OF CARE Routine 12/10/2022 4:27 PM CDT GASTROSTOMY TUBE, CHANGE / REPOSITION Routine 12/10/2022 1:11 PM CDT GLUCOSE - POINT OF CARE Routine 12/10/2022 8:35 AM CDT GLUCOSE - POINT OF CARE Routine 12/10/2022 4:33 AM CDT CBC W AUTO DIFFERENTIAL Routine 12/10/2022 3:44 AM CDT RENAL FUNCTION PANEL Routine 12/10/2022 3:44 AM CDT MAGNESIUM BLOOD Routine 12/10/2022 3:44 AM CDT GLUCOSE - POINT OF CARE Routine 12/10/2022 12:34 AM CDT GLUCOSE - POINT OF CARE Routine 12/09/2022 8:04 PM CDT GLUCOSE - POINT OF CARE Routine 12/09/2022 4:20 PM CDT GLUCOSE - POINT OF CARE Routine 12/09/2022 12:52 PM CDT PT-INR [facility] Routine 12/09/2022 12:11 PM CDT Severe protein-calorie malnutrition (HCC) Protein-calorie malnutrition, unspecified severity (HCC) History of stroke GLUCOSE - POINT OF CARE Routine 12/09/2022 7:59 AM CDT GLUCOSE - POINT OF CARE Routine 12/09/2022 6:02 AM CDT CBC W AUTO DIFFERENTIAL Routine 12/09/2022 5:52 AM CDT RENAL FUNCTION PANEL Routine 12/09/2022 5:52 AM CDT MAGNESIUM BLOOD Routine 12/09/2022 5:52 AM CDT GLUCOSE - POINT OF CARE Routine 12/08/2022 6:36 PM CDT GLUCOSE - POINT OF CARE Routine 12/08/2022 4:10 PM CDT GLUCOSE - POINT OF CARE Routine 12/08/2022 7:51 AM CDT GLUCOSE - POINT OF CARE Routine 12/08/2022 7:05 AM CDT CBC W AUTO DIFFERENTIAL Routine 12/08/2022 4:28 AM CDT RENAL FUNCTION PANEL Routine 12/08/2022 4:28 AM CDT MAGNESIUM BLOOD Routine 12/08/2022 4:28 AM CDT GLUCOSE - POINT OF CARE Routine 12/07/2022 6:08 PM CDT NM GASTRIC EMPTYING Routine 12/07/2022 3 :51 PM CDT PEG (percutaneous endoscopic gastrostomy) status (HCC) CBC W AUTO DIFFERENTIAL Routine 12/07/2022 2:28 AM CDT RENAL FUNCTION PANEL Routine 12/07/2022 2:28 AM CDT MAGNESIUM BLOOD Routine 12/07/2022 2:28 AM CDT CBC W AUTO DIFFERENTIAL Routine 12/06/2022 3:10 AM CDT RENAL FUNCTION PANEL Routine 12/06/2022 3:10 AM CDT MAGNESIUM BLOOD Routine 12/06/2022 3:10 AM CDT CBC W AUTO DIFFERENTIAL Routine 12/05/2022 3:18 AM CDT RENAL FUNCTION PANEL Routine 12/05/2022 3:18 AM CDT MAGNESIUM BLOOD Routine 12/05/2022 3:18 AM CDT MECHANICAL VENTILATION Routine 12/04/2022 10:44 AM CDT CBC W AUTO DIFFERENTIAL Routine 12/04/2022 3:27 AM CDT RENAL FUNCTION PANEL Routine 12/04/2022 3:27 AM CDT MAGNESIUM BLOOD Routine 12/04/2022 3:27 AM CDT GLUCOSE - POINT OF CARE Routine 12/03/2022 3:58 PM CDT GLUCOSE - POINT OF CARE Routine 12/03/2022 11:54 AM CDT GLUCOSE - POINT OF CARE Routine 12/03/2022 7:58 AM CDT GLUCOSE - POINT OF CARE Routine 12/03/2022 4:01 AM CDT CBC W AUTO DIFFERENTIAL Routine 12/03/2022 2:29 AM CDT RENAL FUNCTION PANEL Routine 12/03/2022 2:29 AM CDT MAGNESIUM BLOOD Routine 12/03/2022 2:29 AM CDT GLUCOSE - POINT OF CARE Routine 12/02/2022 11:36 PM CDT GLUCOSE - POINT OF CARE Routine 12/02/2022 7:43 PM CDT GLUCOSE - POINT OF CARE Routine 12/02/2022 4:21 PM CDT GLUCOSE - POINT OF CARE Routine 12/02/2022 12:05 PM CDT GLUCOSE - POINT OF CARE Routine 12/02/2022 7:57 AM CDT CBC W AUTO DIFFERENTIAL Routine 12/02/2022 3:56 AM CDT RENAL FUNCTION PANEL Routine 12/02/2022 3:56 AM CDT MAGNESIUM BLOOD Routine 12/02/2022 3:56 AM CDT GLUCOSE - POINT OF CARE Routine 12/02/2022 3:55 AM CDT GLUCOSE - POINT OF CARE Routine 12/01/2022 11:44 PM CDT GLUCOSE - POINT OF CARE Routine 12/01/2022 7:42 PM CDT GLUCOSE - POINT OF CARE Routine 12/01/2022 3:55 PM CDT GLUCOSE - POINT OF CARE Routine 12/01/2022 1:53 PM CDT GLUCOSE - POINT OF CARE Routine 12/01/2022 7:10 AM CDT GLUCOSE - POINT OF CARE Routine 12/01/2022 3:38 AM CDT CBC W AUTO DIFFERENTIAL Routine 12/01/2022 3:38 AM CDT RENAL FUNCTION PANEL Routine 12/01/2022 3:38 AM CDT MAGNESIUM BLOOD Routine 12/01/2022 3:38 AM CDT GLUCOSE - POINT OF CARE Routine 11/30/2022 11:26 PM CDT TRANSFUSE RED BLOOD CELL LEUKOREDUCED UNIT(S) Routine 11/30/2022 11:00 PM CDT PREPARE RBC LEUKOREDUCED UNIT Routine 11/30/2022 10:51 PM CDT GLUCOSE - POINT OF CARE Routine 11/30/2022 7:56 PM CDT TYPE + SCREEN PANEL Routine 11/30/2022 4 :57 PM CDT GLUCOSE - POINT OF CARE Routine 11/30/2022 3:08 PM CDT VANCOMYCIN LEVEL TROUGH Timed 11/30/2022 3:08 PM CDT GLUCOSE - POINT OF CARE Routine 11/30/2022 1:24 PM CDT GLUCOSE - POINT OF CARE Routine 11/30/2022 9:44 AM CDT VANCOMYCIN LEVEL PEAK Timed 11/30/2022 6:17 AM CDT CBC W AUTO DIFFERENTIAL Routine 11/30/2022 3:20 AM CDT RENAL FUNCTION PANEL Routine 11/30/2022 3:20 AM CDT MAGNESIUM BLOOD Routine 11/30/2022 3:20 AM CDT GLUCOSE - POINT OF CARE Routine 11/30/2022 12:21 AM CDT GLUCOSE - POINT OF CARE Routine 11/29/2022 7:48 PM CDT GLUCOSE - POINT OF CARE Routine 11/29/2022 4:00 PM CDT GLUCOSE - POINT OF CARE Routine 11/29/2022 12:37 PM CDT VAS BILATERAL VENOUS DUPLEX LE Routine 11/29/2022 11:46 AM CDT Sinus tachycardia EKG 12-LEAD Routine 11/29/2022 11:40 AM CDT V-tach (HCC) ECHO COMPLETE Routine 11/29/2022 9:56 AM CDT Ventricular tachycardia (HCC) GLUCOSE - POINT OF CARE Routine 11/29/2022 8:49 AM CDT METANEPHRINES URINE FRACTIONATED Routine 11/29/2022 8:31 AM CDT CBC W AUTO DIFFERENTIAL Routine 11/29/2022 3:12 AM CDT RENAL FUNCTION PANEL Routine 11/29/2022 3:12 AM CDT MAGNESIUM BLOOD Routine 11/29/2022 3:12 AM CDT GLUCOSE - POINT OF CARE Routine 11/28/2022 3:42 PM CDT CULTURE SPUTUM+GRAM STAIN Routine 11/28/2022 2:27 PM CDT GLUCOSE - POINT OF CARE Routine 11/28/2022 1:03 PM CDT GLUCOSE - POINT OF CARE Routine 11/28/2022 7:23 AM CDT CBC W AUTO DIFFERENTIAL Routine 11/28/2022 4:34 AM CDT RENAL FUNCTION PANEL Routine 11/28/2022 4:34 AM CDT MAGNESIUM BLOOD Routine 11/28/2022 4:34 AM CDT GLUCOSE - POINT OF CARE Routine 11/27/2022 5:14 PM CDT TSH REFLEX FREE T4 STAT 11/27/2022 3: [address] ANGIO CHEST PULM EMBOLISM Routine 11/27/2022 2:32 PM CDT Sinus tachycardia GLUCOSE - POINT OF CARE Routine 11/27/2022 11:31 AM CDT EKG 12-LEAD STAT 11/27/2022 10:27 AM CDT Sinus tachycardia GLUCOSE - POINT OF CARE Routine 11/27/2022 7:45 AM CDT BLOOD GASES ART + COOX PANEL Routine 11/27/2022 3:28 AM CDT CBC W AUTO DIFFERENTIAL Routine 11/27/2022 3:18 AM CDT RENAL FUNCTION PANEL Routine 11/27/2022 3:18 AM CDT MAGNESIUM BLOOD Routine 11/27/2022 3:18 AM CDT GLUCOSE - POINT OF CARE Routine 11/27/2022 3:16 AM CDT GLUCOSE - POINT OF CARE Routine 11/27/2022 12:26 AM CDT BLOOD GASES ART + COOX PANEL Routine 11/26/2022 8:41 PM CDT CALCIUM IONIZED WHOLE BLOOD STAT 11/26/2022 7:55 PM CDT PROCALCITONIN LEVEL STAT 11/26/2022 7 :55 PM CDT XR CHEST 1VW PORTABLE STAT 11/26/2022 7:38 PM CDT Hypoxia EKG 12-LEAD STAT 11/26/2022 6:55 PM CDT Ventricular tachycardia (HCC) TROPONIN-I HIGH SENSITIVE STAT 11/26/2022 6:40 PM CDT CBC W AUTO DIFFERENTIAL STAT 11/26/2022 6:40 PM CDT BASIC METABOLIC PANEL (CALCIUM TOTAL) STAT 11/26/2022 6:40 PM CDT PHOSPHORUS BLOOD STAT 11/26/2022 6:40 PM CDT MAGNESIUM BLOOD STAT 11/26/2022 6:40 PM CDT BLOOD GASES ART + COOX PANEL STAT 11/26/2022 6:40 PM CDT CARDIAC EKG ORDER 11/26/2022 3:4 8 PM CDT EKG 12-LEAD STAT 11/26/2022 2:50 PM CDT Paroxysmal tachycardia, unspecified (HCC) Sinus tachycardia GLUCOSE - POINT OF CARE Routine 11/26/2022 2:15 PM CDT PATHOLOGY TISSUE Routine 11/26/2022 12:2 6 PM CDT Polyp of right nasal cavity ENDOSCOPIC SINUS/NASAL SURGERY 11/26/2022 12:04 PM CDT Polyp of right nasal cavity Case Notes Sinus setup, stealth, micro debrider GLUCOSE - POINT OF CARE Routine 11/26/2022 8:19 AM CDT GLUCOSE - POINT OF CARE Routine 11/26/2022 4:58 AM CDT CBC W AUTO DIFFERENTIAL Routine 11/26/2022 3:10 AM CDT CBC W/O DIFFERENTIAL Timed 11/26/2022 3:10 AM CDT RENAL FUNCTION PANEL Routine 11/26/2022 3:10 AM CDT MAGNESIUM BLOOD Routine 11/26/2022 3:10 AM CDT GLUCOSE - POINT OF CARE Routine 11/26/2022 12:16 AM CDT GLUCOSE - POINT OF CARE Routine 11/25/2022 6:52 PM CDT MRSA DNA PCR STAT 11/25/2022 10:[address] SINUS WWO CONTRAST STAT 11/25/2022 6:[address] CHEST W CONTRAST STAT 11/25/2022 6 :36 AM CDT Hemoptysis COMPREHENSIVE METABOLIC PANEL STAT 11/25/2022 3:35 AM CDT MAGNESIUM BLOOD STAT 11/25/2022 3:35 AM CDT TYPE + SCREEN PANEL STAT 11/25/2022 1 2:15 AM CDT URINALYSIS REFLEX MICROSCOPIC REFLEX CULTURE STAT 11/25/2022 12:05 AM CDT XR CHEST 1VW PORTABLE STAT 11/24/2022 11:59 PM CDT Hemoptysis CBC W AUTO DIFFERENTIAL STAT 11/24/2022 11:47 PM CDT EKG 12-LEAD STAT 11/24/2022 11:44 PM CDT Hemoptysis documented in this encounter Results * CARDIAC EKG ORDER (12/17/2022 2:48 PM CDT) Narrative 12/17/2022 2:48 PM CDT Ordered by an unspecified provider. Scanned Document CARDIAC SERVICES ORD ERABLES * (ABNORMAL) GLUCOSE - POINT OF CARE (12/16/2022 2:08 PM CDT) [facility] Glucose WB/POC 125(H) 70 - 115 mg/dL 12/16/2022 2:12 PM CDT [facility] Specimen Type Cap Fingerstick 2022 2:12 PM CDT [facility] Blood BLOOD SPECIMEN / Unknown 12/16/2022 2:08 PM CDT 12/16/2022 2:12 PM CDT Feliciano Madrid MD LAB - POINT OF CARE ORDERABLES [facility] [address] [place] [address], [facility] [phone] * GLUCOSE - POINT OF CARE (12/16/2022 5:49 AM CDT) [facility] Glucose WB/POC 108 70 - 115 mg/dL 12/16/2022 5:56 AM CDT [facility] Specimen Type Cap Fingerstick 2022 5:56 AM CDT [facility] Blood BLOOD SPECIMEN / Unknown 12/16/2022 5:49 AM CDT 12/16/2022 5:56 AM CDT Feliciano Madrid MD LAB - POINT OF CARE ORDERABLES [facility] [address] [place] [address], [place] [phone] * (ABNORMAL) RBC MORPHOLOGY (12/16/2022 3:49 AM CDT) [facility] Platelet Estimate Decreased(A) Adequate 12/16/2022 5:20 AM CDT [facility] Anisocytosis Occasional(A ) None 12/16/2022 5:20 AM CDT [facility] Ovalocytes Occasional(A ) None 12/16/2022 5:20 AM CDT [facility] [place] Cells 2+(A) None 12/16/2022 5:20 AM CDT [facility] Comment Platelet Platelet clumpled on the smear but appear decreased. 12/16/2022 5:20 AM CDT [facility] Blood BLOOD SPECIMEN / Unknown Lab Venipuncture / Unknown 12/16/2022 3:49 AM CDT 12/16/2022 4:04 AM CDT Neville Hewitt III, MD LAB - HEMATOLOGY ORDERABLES Performing Organization Address City/[facility]/ZIP Co de Phone Number [facility] [address] [place] [address], [place] [phone] * MAGNESIUM BLOOD (12/16/2022 3:49 AM CDT) [facility] Magnesium 1.8 1.6 - 2.6 mg/dL 12/16/2022 4:29 AM CDT [facility] Blood BLOOD SPECIMEN / Unknown Lab Venipuncture / Unknown 12/16/2022 3:49 AM CDT 12/16/2022 4:14 AM CDT Neville Hewitt III, MD LAB - CHEMISTRY ORDERABLES [facility] [address] [place] [address], [facility] [phone] * (ABNORMAL) RENAL FUNCTION PANEL (12/16/2022 3:49 AM CDT) BUN 12 7 - 26 mg/dL 12/16/2022 4:29 AM [facility] Creatinine 0.52(L) 0.71 - 1.16 mg/dL 12/16/2022 4:29 AM [facility] Sodium 133(L) 136 - 145 mmol/L 12/16/2022 4:29 AM [facility] Potassium 4.7(H) 3.5 - 4.5 mmol/L 12/16/2022 4:29 AM [facility] Chloride 105 98 - 107 mmol/L 12/16/2022 4:29 AM [facility] CO2 21(L) 22 - 29 mmol/L 12/16/2022 4:29 AM [facility] Glucose 120(H) 70 - 115 mg/dL 12/16/2022 4:29 AM [facility] Albumin 2.3(L) 3.4 - 5.0 g/dL 12/16/2022 4:29 AM [facility] Calcium 9.3 8.4 - 10.2 mg/dL 12/16/2022 4:29 AM [facility] Phosphorus 2.1(L) 2.8 - 5.1 mg/dL 12/16/2022 4:29 AM [facility] Anion Gap 12 8 - 18 12/16/2022 4:29 AM [facility] BUN/Creatinine Ratio 23 7 - 23 12/16/2022 4:29 AM [facility] Osmolality Calculated 277 270 - 300 mOsm/kg 12/16/2022 4:29 AM [facility] eGFR by CKD-EPI >90 >=90 mL/min/1.7 3 m2 12/16/2022 4:29 AM [facility] Blood BLOOD SPECIMEN / Unknown Lab Venipuncture / Unknown 12/16/2022 3:49 AM CDT 12/16/2022 4:14 AM CDT Neville Hewitt III, MD LAB - CHEMISTRY ORDERABLES [facility] [address] [place] [address], [facility] [phone] * (ABNORMAL) CBC W AUTO DIFFERENTIAL (12/16/2022 3:49 AM CDT) WBC 11.2(H) 3.5 - 10.5 10? 3 /uL 12/16/2022 5:19 AM [facility] RBC 4.05(L) 4.30 - 5.70 10? 6 /uL 12/16/2022 5:19 AM [facility] Hemoglobin 12.1 12.0 - 17.6 g/dL 12/16/2022 5:19 AM [facility] Hematocrit 38.2 35.2 - 51.7 % 12/16/2022 5:19 AM [facility] MCV 94.3 80.7 - 98.3 fL 12/16/2022 5:19 AM [facility] MCH 29.9 26.7 - 34.0 pg 12/16/2022 5:19 AM [facility] MCHC 31.7 30.8 - 35.9 g/dL 12/16/2022 5:19 AM [facility] RDW-SD 58.3(H) 36.0 - 50.0 fL 12/16/2022 5:19 AM [facility] RDW-CV 16.7(H) 11.2 - 14.8 % 12/16/2022 5:19 AM [facility] Platelet Count 12/16/2022 5:19 AM [facility] Comment: Platelets are clumped, appear as Decreased on the slide. ?? Notified Armando Villalta RN at [id number] on 12/16/2022. MPV 12/16/2022 5:19 AM [facility] Comment:Unable to Report nRBC Absolute 0.00 0 10? 3 /uL 12/16/2022 5:19 AM [facility] nRBC Auto 0.0 0 /100 WBC 12/16/2022 5:19 AM [facility] Neutrophils % 69.4 35.0 - 70.0 % 12/16/2022 5:19 AM [facility] Lymphocytes % 20.4 20.0 - 43.0 % 12/16/2022 5:19 AM [facility] Monocytes % 7.7 5.0 - 13.0 % 12/16/2022 5:19 AM [facility] Eosinophils % 2.0 0.0 - 6.0 % 12/16/2022 5:19 AM [facility] Basophil % 0.2 0.0 - 2.0 % 12/16/2022 5:19 AM [facility] Neutrophils Absolute 7.81(H) 1.60 - 7.00 10? 3 /uL 12/16/2022 5:19 AM [facility] Lymphocyte Absolute 2.29 1.10 - 3.90 10? 3 /uL 12/16/2022 5:19 AM [facility] Monocytes Absolute 0.86 0.26 - 1.07 10? 3 /uL 12/16/2022 5:19 AM [facility] Eosinophils Absolute 0.22 0.00 - 0.47 10? 3 /uL 12/16/2022 5:19 AM [facility] Basophils Absolute 0.02 0.00 - 0.08 10? 3 /uL 12/16/2022 5:19 AM [facility] Immature Granulocytes % 0.3 0.0 - 1.0 % 12/16/2022 5:19 AM [facility] Immature Granulocytes Absolute 0.03 12/16/2022 5:19 AM [facility] Blood BLOOD SPECIMEN / Unknown Lab Venipuncture / Unknown 12/16/2022 3:49 AM CDT 12/16/2022 4:04 AM CDT Neville Hewitt III, MD LAB - HEMATOLOGY ORDERABLES [address] [address], [place] [phone] * (ABNORMAL) GLUCOSE - POINT OF CARE (12/15/2022 11:34 PM CDT) Glucose WB/POC 119(H) 70 - 115 mg/dL 12/15/2022 11:48 PM CDT [facility] Specimen Type Cap Fingerstick 2022 11:48 PM CDT [facility] Blood BLOOD SPECIMEN / Unknown 12/15/2022 11:34 PM CDT 12/15/2022 11:48 PM CDT Feliciano Madrid MD LAB - POINT OF CARE ORDERABLES Performing Organization Address City/[facility]/ZIP Co de Phone Number [address] [address], [place] [phone] * (ABNORMAL) GLUCOSE - POINT OF CARE (12/15/2022 5:52 PM CDT) Glucose WB/POC 135(H) 70 - 115 mg/dL 12/16/2022 7:41 AM CDT [facility] Specimen Type Cap Fingerstick 2022 7:41 AM CDT [facility] Blood BLOOD SPECIMEN / Unknown 12/15/2022 5:52 PM CDT 12/16/2022 7:41 AM CDT Feliciano Madrid MD LAB - POINT OF CARE ORDERABLES [address] [address], [place] [phone] * GLUCOSE - POINT OF CARE (12/15/2022 12:58 PM CDT) Glucose WB/POC 112 70 - 115 mg/dL 12/15/2022 1:02 PM CDT [facility] Specimen Type Cap Fingerstick 2022 1:02 PM CDT [facility] Blood BLOOD SPECIMEN / Unknown 12/15/2022 12:58 PM CDT 12/15/2022 1:02 PM CDT Feliciano Madrid MD LAB - POINT OF CARE ORDERABLES Performing Organization Address City/[facility]/ZIP Co de Phone Number [address] [address], [facility] [phone] * MAGNESIUM BLOOD (12/15/2022 8:18 AM CDT) Magnesium 1.9 1.6 - 2.6 mg/dL 12/15/2022 8:55 AM T [facility] Blood BLOOD SPECIMEN / Unknown Lab Venipuncture / Unknown 12/15/2022 8:18 AM CDT 12/15/2022 8:29 AM CDT Neville Hewitt III, MD LAB - CHEMISTRY ORDERABLES Performing Organization Address City/[facility]/ZIP Co de Phone Number [address] [address], [facility] [phone] * (ABNORMAL) RENAL FUNCTION PANEL (12/15/2022 8:18 AM CDT) BUN 11 7 - 26 mg/dL 12/15/2022 8:55 AM [facility] Creatinine 0.51(L) 0.71 - 1.16 mg/dL 12/15/2022 8:55 AM [facility] Sodium 135(L) 136 - 145 mmol/L 12/15/2022 8:55 AM [facility] Potassium 4.2 3.5 - 4.5 mmol/L 12/15/2022 8:55 AM [facility] Chloride 103 98 - 107 mmol/L 12/15/2022 8:55 AM [facility] CO2 27 22 - 29 mmol/L 12/15/2022 8:55 AM [facility] Glucose 110 70 - 115 mg/dL 12/15/2022 8:55 AM [facility] Albumin 2.3(L) 3.4 - 5.0 g/dL 12/15/2022 8:55 AM [facility] Calcium 9.3 8.4 - 10.2 mg/dL 12/15/2022 8:55 AM [facility] Phosphorus 2.8 2.8 - 5.1 mg/dL 12/15/2022 8:55 AM [facility] Anion Gap 9 8 - 18 12/15/2022 8:55 AM [facility] BUN/Creatinine Ratio 22 7 - 23 12/15/2022 8:55 AM [facility] Osmolality Calculated 280 270 - 300 mOsm/kg 12/15/2022 8:55 AM [facility] eGFR by CKD-EPI >90 >=90 mL/min/1.7 3 m2 12/15/2022 8:55 AM [facility] Blood BLOOD SPECIMEN / Unknown Lab Venipuncture / Unknown 12/15/2022 8:18 AM CDT 12/15/2022 8:29 AM T Neville Hewitt III, MD LAB - CHEMISTRY ORDERABLES [facility] [address] [place] [address] [phone] * (ABNORMAL) CBC W AUTO DIFFERENTIAL (12/15/2022 8:18 AM CDT) WBC 9.2 3.5 - 10.5 10? 3 /uL 12/15/2022 8:33 AM [facility] RBC 3.74(L) 4.30 - 5.70 10? 6 /uL 12/15/2022 8:33 AM [facility] Hemoglobin 11.3(L) 12.0 - 17.6 g/dL 12/15/2022 8:33 AM [facility] Hematocrit 33.6(L) 35.2 - 51.7 % 12/15/2022 8:33 AM [facility] MCV 89.8 80.7 - 98.3 fL 12/15/2022 8:33 AM [facility] MCH 30.2 26.7 - 34.0 pg 12/15/2022 8:33 AM [facility] MCHC 33.6 30.8 - 35.9 g/dL 12/15/2022 8:33 AM [facility] RDW-SD 54.0(H) 36.0 - 50.0 fL 12/15/2022 8:33 AM [facility] RDW-CV 16.3(H) 11.2 - 14.8 % 12/15/2022 8:33 AM [facility] Platelet Count 123(L) 150 - 400 10? 3 /uL 12/15/2022 8:33 AM [facility] MPV 11.9 9.4 - 12.9 fL 12/15/2022 8:33 AM [facility] nRBC Absolute 0.00 0 10? 3 /uL 12/15/2022 8:33 AM [facility] nRBC Auto 0.0 0 /100 WBC 12/15/2022 8:33 AM [facility] Neutrophils % 58.1 35.0 - 70.0 % 12/15/2022 8:33 AM [facility] Lymphocytes % 28.9 20.0 - 43.0 % 12/15/2022 8:33 AM [facility] Monocytes % 10.7 5.0 - 13.0 % 12/15/2022 8:33 AM [facility] Eosinophils % 1.8 0.0 - 6.0 % 12/15/2022 8:33 AM [facility] Basophil % 0.2 0.0 - 2.0 % 12/15/2022 8:33 AM [facility] Neutrophils Absolute 5.36 1.60 - 7.00 10? 3 /uL 12/15/2022 8:33 AM [facility] Lymphocyte Absolute 2.67 1.10 - 3.90 10? 3 /uL 12/15/2022 8:33 AM [facility] Monocytes Absolute 0.99 0.26 - 1.07 10? 3 /uL 12/15/2022 8:33 AM [facility] Eosinophils Absolute 0.17 0.00 - 0.47 10? 3 /uL 12/15/2022 8:33 AM [facility] Basophils Absolute 0.02 0.00 - 0.08 10? 3 /uL 12/15/2022 8:33 AM CDT [facility] Immature Granulocytes % 0.3 0.0 - 1.0 % 12/15/2022 8:33 AM CDT [facility] Immature Granulocytes Absolute 0.03 12/15/2022 8:33 AM CDT [facility] Blood BLOOD SPECIMEN / Unknown Lab Venipuncture / Unknown 12/15/2022 8:18 AM CDT 12/15/2022 8:28 AM CDT Neville Hewitt III, MD LAB - HEMATOLOGY ORDERABLES [facility] [address] [place] [address], [facility] [phone] * (ABNORMAL) GLUCOSE - POINT OF CARE (12/15/2022 7:15 AM CDT) Glucose WB/POC 116(H) 70 - 115 mg/dL 12/15/2022 7:20 AM CDT [facility] Specimen Type Arterial 12/15/2022 7:20 AM CDT [facility] Blood BLOOD SPECIMEN / Unknown 12/15/2022 7:15 AM CDT 12/15/2022 7:20 AM CDT Feliciano Madrid MD LAB - POINT OF CARE ORDERABLES [facility] [address] [place] [address], [place] [phone] * GLUCOSE - POINT OF CARE (12/15/2022 6:13 AM CDT) Glucose WB/POC 104 70 - 115 mg/dL 12/15/2022 7:49 AM CDT [facility] Specimen Type Cap Fingerstick 2022 7:49 AM CDT [facility] Blood BLOOD SPECIMEN / Unknown 12/15/2022 6:13 AM CDT 12/15/2022 7:49 AM CDT Feliciano Madrid MD LAB - POINT OF CARE ORDERABLES [address] [address], [place] [phone] * (ABNORMAL) GLUCOSE - POINT OF CARE (12/15/2022 1:10 AM CDT) Glucose WB/POC 118(H) 70 - 115 mg/dL 12/15/2022 1:15 AM CDT [facility] Specimen Type Cap Fingerstick 2022 1:15 AM CDT [facility] Blood BLOOD SPECIMEN / Unknown 12/15/2022 1:10 AM CDT 12/15/2022 1:15 AM CDT Feliciano Madrid MD LAB - POINT OF CARE ORDERABLES Performing Organization Address City/[facility]/ZIP Co de Phone Number [address] [address], [facility] [phone] * GLUCOSE - POINT OF CARE (12/14/2022 8:59 PM CDT) Glucose WB/POC 108 70 - 115 mg/dL 12/14/2022 9:02 PM CDT [facility] Specimen Type Cap Fingerstick 2022 9:02 PM CDT [facility] Blood BLOOD SPECIMEN / Unknown 12/14/2022 8:59 PM CDT 12/14/2022 9:02 PM CDT Feliciano Madrdi MD LAB - POINT OF CARE ORDERABLES [address] [address], [place] [phone] * GLUCOSE - POINT OF CARE (12/14/2022 4:38 PM CDT) Glucose WB/POC 92 70 - 115 mg/dL 12/14/2022 4:43 PM CDT [facility] Specimen Type Cap Fingerstick 2022 4:43 PM CDT [facility] Blood BLOOD SPECIMEN / Unknown 12/14/2022 4:38 PM CDT 12/14/2022 4:43 PM CDT Feliciano Madrid MD LAB - POINT OF CARE ORDERABLES [address] [address], [facility] [phone] * IR PERC G TO GJ TUBE EXCHANGE (12/14/2022 4:07 PM CDT) Anatomical Region Laterality Modality Abdomen X-Ray Angiograph y 12/16/2022 11:1 2 AM CDT Impressions 12/16/2022 11:17 AM CDT Impression: Successful conversion of the existing 24 [place] gastrostomy catheter for a new 18-[place] balloon-retention gastrojejunostomy catheter under fluoroscopic guidance, as [...] and call the IR service. I, Dr. Stock, was present and performed/supervised the entire procedure. > Interpreting Provider: Krystal Stock on 12/16/2022 11:17 AM Narrative 12/16/2022 11:17 AM CDT PROCEDURE: ??IR PERC G TO GJ TUBE EXCHANGE DATE/TIME OF EXAM: ??12/14/2022 4:08 PM CLINICAL INFORMATION: None relevant/not provided if blank. Indication: Z93.1: PEG (percutaneous endoscopic gastrostomy) status (CMS/HCC) History: 62-year-old male with history of CVA, dementia and dysphagia and recurrent aspiration despite G-tube. Recent gastric emptying study demonstrated findings concerning for gastroparesis and therefore VIR consulted for conversion of G to GJ. Operators: 1.Dr. Krystal Stock M.D., Attending Physician Anesthesia: 1.Local anesthesia - 10 mL of 1% lidocaine Procedure: Exchange of the existing 24 Uruguayan gastrostomy catheter for a new 18-Uruguayan balloon-retention gastrojejunostomy catheter under fluoroscopic guidance. Fluoroscopic time: 2.4 minutes ?Contrast: 20 mL of Isovue-300 Procedure in detail: The procedure, risks, and possible complications were explained to the patient's family in detail, and informed consent was obtained. The patient was placed supine on the procedure table. A branch service associate film of abdomen was obtained, which showed gastrostomy catheter in place. Contrast was hand injected through the existing gastrostomy catheter and showed opacification of the gastric lumen. A 0.035 inch Bentson wire was advanced into the stomach through the existing catheter which was subsequently removed over the wire. Using a 4 Uruguayan Kumpe catheter, the guidewire was advanced into the jejunum under fluoroscopic guidance. The Bentson guidewire was exchanged for a stiffer Amplatz wire. A new 18-Uruguayan gastrojejunostomy catheter was then advanced over the wire under fluoroscopic guidance. The catheter was secured by balloon insufflation. Hand injection of contrast through the gastric port confirmed intraluminal position within the stomach. Hand injection of contrast through the jejunal port confirmed intraluminal position within the jejunum. Sterile dressing was applied. The patient tolerated the procedure well and was transferred to the holding area in stable condition. There were no immediate complications associated with the procedure. Procedure Note Krystal Stock MD - 12/16/2022 PROCEDURE: IR PERC G TO GJ TUBE EXCHANGE DATE/TIME OF EXAM: 12/14/2022 4:08 PM CLINICAL INFORMATION: None relevant/not provided if blank. Indication: Z93.1: PEG (percutaneous endoscopic gastrostomy) status (CMS/HCC) History: 62-year-old male with history of CVA, dementia and dysphagiaand recurrent aspiration despite G-tube. Recent gastric emptying study demonstrated findings concerning for gastroparesis and therefore VIR consulted for conversion of G to GJ. Operators: 1.Dr. Krystal Stock M.D., Attending Physician Anesthesia: 1.Local anesthesia - 10 mL of 1% lidocaine Procedure: Exchange of the existing 24 Uruguayan gastrostomy catheter for a new 18-Uruguayan balloon-retention gastrojejunostomy catheter under fluoroscopic guidance. Fluoroscopic time: 2.4 minutes Contrast: 20 mL of Isovue-300 Procedure in detail: The procedure, risks, and possible complications were explained to the patient's family in detail, and informed consent was obtained. Thepatient was placed supine on the procedure table. A branch service associate film of abdomen was obtained, which showed gastrostomy catheter in place. Contrast was hand injected through the existing gastrostomy catheter and showed opacification of the gastric lumen. A 0.035 inch Bentson wire was advanced into the stomach through the existing catheter which was subsequently removed over the wire. Using a 4 Uruguayan Kumpe catheter, the guidewire was advanced into the jejunum under fluoroscopic guidance. The Bentson guidewire was exchanged for a stiffer Amplatz wire. A [id number] gastrojejunostomy catheter was then advanced over the wire under fluoroscopic guidance. The catheter was secured by balloon insufflation. Hand injection of contrast through the gastric port confirmedintraluminal position within the stomach. Hand injection of contrast through thejejunal port confirmed intraluminal position within the jejunum. Steriledressing was applied. The patient tolerated the procedure well and was transferred to theregional medical centering area in stable condition. There were no immediate complicationsassociated with the procedure. Impression: Successful conversion of the existing 24 Uruguayan gastrostomy catheter for a new 18-Uruguayan balloon-retention gastrojejunostomycatheter under fluoroscopic guidance, as described above. Note: [...] discomfort, stop feedingand call the IR service. I, Dr. Stock, was present and performed/supervised the entireprocedure. > Interpreting Provider: Krystal Stock on 12/16/2022 11:17 AM Gaurav Leroy PA-C IR ORDERABLES * GLUCOSE - POINT OF CARE (12/14/2022 12:34 PM CDT) Glucose WB/POC 100 70 - 115 mg/dL 12/14/2022 12:42 PM CDT [facility] Specimen Type Cap Fingerstick 2022 12:42 PM CDT [facility] Blood BLOOD SPECIMEN / Unknown 12/14/2022 12:34 PM CDT 12/14/2022 12:42 PM CDT Feliciano Madrid MD LAB - POINT OF CARE ORDERABLES [facility] [address] [place] [address], [facility] [phone] * XR CHEST 1VW PORTABLE (12/14/2022 8:55 AM CDT) Anatomical Region Laterality Modality Chest Radiographic Cynthia ging 12/14/2022 8:55 AM CDT Narrative 12/14/2022 1:25 PM CDT EXAMINATION: XR CHEST 1VW PORTABLE DATE/TIME OF EXAM: ??12/14/2022 8:55 AM, LOCATION ??[facility] HISTORY: U07.1: COVID-19 leukocytosis w increasing o2 requirement tachycardia COMPARISON: Multiple priors, with the most recent chest x-ray from 11/26/2022 FINDINGS/IMPRESSION: Tracheostomy tube terminates in the midthoracic trachea. The patient is slightly rotated to the right. Atelectasis of the mid and lower lobe of the right lung. Suggestion of right-sided pleural effusion. No acute consolidation or air space opacities seen in the left side. No pneumothorax is identified. The cardiomediastinal silhouette is partially obscured. No acute osseous abnormality. > Dictated by Lamar Mercedes MD (resident medical officer). I, Bebo Kuo MD have personally reviewed and interpreted this examination/study. > Interpreting Provider: Bebo Kuo MD on 12/14/2022 1:25 PM Procedure Note Bebo Kuo MD - 12/14/2022 EXAMINATION: XR CHEST 1VW PORTABLE DATE/TIME OF EXAM: 12/14/2022 8:55 AM, LOCATION [facility] HISTORY: U07.1: COVID-19 leukocytosis w increasing o2 requirement tachycardia COMPARISON: Multiple priors, with the most recent chest x-ray from 11/26/2022 FINDINGS/IMPRESSION: Tracheostomy tube terminates in the midthoracic trachea. The patient is slightly rotated to the right. Atelectasis of the mid and lower lobe of the right lung. Suggestion of right-sided pleural effusion. No acute consolidation or air spaceopacities seen in the left side. No pneumothorax is identified. Thecardiomediastinal silhouette is partially obscured. No acute osseous abnormality. > Dictated by Lamar Mercedes MD (resident medical officer). I, Bebo Kuo MD have personally reviewed and interpreted this examination/study. > Interpreting Provider: Bebo Kuo MD on 31:25 PM Feliciano Madrid MD DIAGNOSTIC IMAGING O RDERABLES * GLUCOSE - POINT OF CARE (12/14/2022 8:47 AM CDT) Glucose WB/POC 108 70 - 115 mg/dL 12/15/2022 12:31 AM CDT [facility] Specimen Type Cap Fingerstick 2022 12:31 AM CDT [facility] Blood BLOOD SPECIMEN / Unknown 12/14/2022 8:47 AM CDT 12/15/2022 12:31 AM CDT Feliciano Madrid MD LAB - POINT OF CARE ORDERABLES Performing Organization Address City/[facility]/ZIP Co de Phone Number [address] [address], [facility] [phone] * MAGNESIUM BLOOD (12/14/2022 6:38 AM CDT) Magnesium 1.7 1.6 - 2.6 mg/dL 12/14/2022 7:18 AM CDT [facility] Blood BLOOD SPECIMEN / Unknown Venipuncture / Unknown 12/14/2022 6:38 AM CDT 12/14/2022 6:48 AM CDT Neville Hewitt III, MD LAB - CHEMISTRY ORDERABLES [facility] [address] [place] [address], [facility] [phone] * (ABNORMAL) RENAL FUNCTION PANEL (12/14/2022 6:38 AM CDT) BUN 10 7 - 26 mg/dL 12/14/2022 7:18 AM [facility] Creatinine 0.47(L) 0.71 - 1.16 mg/dL 12/14/2022 7:18 AM [facility] Sodium 135(L) 136 - 145 mmol/L 12/14/2022 7:18 AM [facility] Potassium 4.2 3.5 - 4.5 mmol/L 12/14/2022 7:18 AM [facility] Chloride 104 98 - 107 mmol/L 12/14/2022 7:18 AM [facility] CO2 23 22 - 29 mmol/L 12/14/2022 7:18 AM [facility] Glucose 114 70 - 115 mg/dL 12/14/2022 7:18 AM [facility] Albumin 2.4(L) 3.4 - 5.0 g/dL 12/14/2022 7:18 AM [facility] Calcium 9.9 8.4 - 10.2 mg/dL 12/14/2022 7:18 AM [facility] Phosphorus 3.5 2.8 - 5.1 mg/dL 12/14/2022 7:18 AM [facility] Anion Gap 12 8 - 18 12/14/2022 7:18 AM [facility] BUN/Creatinine Ratio 21 7 - 23 12/14/2022 7:18 AM [facility] Osmolality Calculated 280 270 - 300 mOsm/kg 12/14/2022 7:18 AM [facility] eGFR by CKD-EPI >90 >=90 mL/min/1.7 3 m2 12/14/2022 7:18 AM [facility] Blood BLOOD SPECIMEN / Unknown Venipuncture / Unknown 12/14/2022 6:38 AM CDT 12/14/2022 6:48 AM CDT Neville Hewtit III, MD LAB - CHEMISTRY ORDERABLES [facility] [address] [place] [address], [facility] [phone] * (ABNORMAL) CBC W AUTO DIFFERENTIAL (12/14/2022 6:38 AM CDT) WBC 16.9(H) 3.5 - 10.5 10? 3 /uL 12/14/2022 8:47 AM [facility] RBC 3.94(L) 4.30 - 5.70 10? 6 /uL 12/14/2022 8:47 AM [facility] Hemoglobin 11.9(L) 12.0 - 17.6 g/dL 12/14/2022 8:47 AM [facility] Hematocrit 35.9 35.2 - 51.7 % 12/14/2022 8:47 AM [facility] MCV 91.1 80.7 - 98.3 fL 12/14/2022 8:47 AM [facility] MCH 30.2 26.7 - 34.0 pg 12/14/2022 8:47 AM [facility] MCHC 33.1 30.8 - 35.9 g/dL 12/14/2022 8:47 AM [facility] RDW-SD 55.2(H) 36.0 - 50.0 fL 12/14/2022 8:47 AM [facility] RDW-CV 16.4(H) 11.2 - 14.8 % 12/14/2022 8:47 AM [facility] Platelet Count 134(L) 150 - 400 10? 3 /uL 12/14/2022 8:47 AM [facility] Comment: Checked by peripheral smear. This is an appended report. ??These results have been appended to a previously preliminary verified report. MPV 12/14/2022 8:47 AM [facility] Comment:Unable to Report Immature Platelet Fraction 12/14/2022 8:47 AM [facility] Comment:Unable to Report nRBC Absolute 0.00 0 10? 3 /uL 12/14/2022 8:47 AM [facility] nRBC Auto 0.0 0 /100 WBC 12/14/2022 8:47 AM [facility] Neutrophils % 73.9(H) 35.0 - 70.0 % 12/14/2022 8:47 AM [facility] Lymphocytes % 15.8(L) 20.0 - 43.0 % 12/14/2022 8:47 AM [facility] Monocytes % 9.3 5.0 - 13.0 % 12/14/2022 8:47 AM [facility] Eosinophils % 0.4 0.0 - 6.0 % 12/14/2022 8:47 AM [facility] Basophil % 0.2 0.0 - 2.0 % 12/14/2022 8:47 AM [facility] Neutrophils Absolute 12.47(H) 1.60 - 7.00 10? 3 /uL 12/14/2022 8:47 AM [facility] Lymphocyte Absolute 2.67 1.10 - 3.90 10? 3 /uL 12/14/2022 8:47 AM [facility] Monocytes Absolute 1.56(H) 0.26 - 1.07 10? 3 /uL 12/14/2022 8:47 AM [facility] Eosinophils Absolute 0.07 0.00 - 0.47 10? 3 /uL 12/14/2022 8:47 AM [facility] Basophils Absolute 0.03 0.00 - 0.08 10? 3 /uL 12/14/2022 8:47 AM [facility] Immature Granulocytes % 0.4 0.0 - 1.0 % 12/14/2022 8:47 AM [facility] Immature Granulocytes Absolute 0.06 12/14/2022 8:47 AM [facility] Blood BLOOD SPECIMEN / Unknown Venipuncture / Unknown 12/14/2022 6:38 AM CDT 12/14/2022 6:49 AM T Neville Hewitt III, MD LAB - HEMATOLOGY ORDERABLES Performing Organization Address City/State/[facility] [[email or web address] Co de Phone Number [facility] [address] [place] [address], [place] [phone] * (ABNORMAL) GLUCOSE - POINT OF CARE (12/14/2022 3:29 AM CDT) Glucose WB/POC 117(H) 70 - 115 mg/dL 12/14/2022 6:24 AM CDT [facility] Specimen Type Cap Fingerstick 2022 6:24 AM CDT [facility] Blood BLOOD SPECIMEN / Unknown 12/14/2022 3:29 AM CDT 12/14/2022 6:24 AM CDT Feliciano Madrid MD LAB - POINT OF CARE ORDERABLES [address] [address], [place] [phone] * (ABNORMAL) GLUCOSE - POINT OF CARE (12/14/2022 12:21 AM CDT) Glucose WB/POC 143(H) 70 - 115 mg/dL 12/14/2022 12:26 AM CDT [facility] Specimen Type Cap Fingerstick 2022 12:26 AM CDT [facility] Blood BLOOD SPECIMEN / Unknown 12/14/2022 12:21 AM CDT 12/14/2022 12:26 AM CDT Feliciano Madrid MD LAB - POINT OF CARE ORDERABLES [facility] [address] [place] [address], [place] [phone] * GLUCOSE - POINT OF CARE (12/13/2022 8:47 PM CDT) Glucose WB/POC 114 70 - 115 mg/dL 12/13/2022 9:03 PM CDT [facility] Specimen Type Cap Fingerstick 2022 9:03 PM CDT [facility] Blood BLOOD SPECIMEN / Unknown 12/13/2022 8:47 PM CDT 12/13/2022 9:03 PM CDT Feliciano Madrid MD LAB - POINT OF CARE ORDERABLES [address] [address], [facility] [phone] * GLUCOSE - POINT OF CARE (12/13/2022 4:05 PM CDT) Glucose WB/POC 85 70 - 115 mg/dL 12/13/2022 4:13 PM CDT [facility] Specimen Type Arterial 12/13/2022 4:13 PM CDT [facility] Blood BLOOD SPECIMEN / Unknown 12/13/2022 4:05 PM CDT 12/13/2022 4:13 PM CDT Feliciano Madrid MD LAB - POINT OF CARE ORDERABLES Performing Organization Address City/[facility]/ZIP Co de Phone Number [address] [address], [facility] [phone] * GLUCOSE - POINT OF CARE (12/13/2022 11:27 AM CDT) Glucose WB/POC 86 70 - 115 mg/dL 12/13/2022 11:38 AM CDT [facility] Specimen Type Arterial 12/13/2022 11:38 AM CDT [facility] Blood BLOOD SPECIMEN / Unknown 12/13/2022 11:27 AM CDT 12/13/2022 11:38 AM CDT Feliciano Madrid MD LAB - POINT OF CARE ORDERABLES [address] [address], [facility] [phone] * (ABNORMAL) CBC W AUTO DIFFERENTIAL (12/13/2022 11:18 AM CDT) WBC 11.8(H) 3.5 - 10.5 10? 3 /uL 12/13/2022 12:37 PM [facility] RBC 4.52 4.30 - 5.70 10? 6 /uL 12/13/2022 12:37 PM [facility] Hemoglobin 13.7 12.0 - 17.6 g/dL 12/13/2022 12:37 PM [facility] Hematocrit 42.2 35.2 - 51.7 % 12/13/2022 12:37 PM [facility] MCV 93.4 80.7 - 98.3 fL 12/13/2022 12:37 PM [facility] MCH 30.3 26.7 - 34.0 pg 12/13/2022 12:37 PM [facility] MCHC 32.5 30.8 - 35.9 g/dL 12/13/2022 12:37 PM [facility] RDW-SD 55.5(H) 36.0 - 50.0 fL 12/13/2022 12:37 PM [facility] RDW-CV 16.2(H) 11.2 - 14.8 % 12/13/2022 12:37 PM [facility] Platelet Count 12/13/2022 12:37 PM [facility] Comment: Platelets are clumped, appear as adequate on the slide. ??A blue top citrated tube is recommended for a platelet count. Notified Mercy Coyle RN at 1236 on 12/13/22. MPV 12/13/2022 12:37 PM [facility] Comment:Unable to Report Immature Platelet Fraction 12/13/2022 12:37 PM [facility] Comment:Unable to Report nRBC Absolute 0.00 0 10? 3 /uL 12/13/2022 12:37 PM [facility] nRBC Auto 0.0 0 /100 WBC 12/13/2022 12:37 PM [facility] Neutrophils % 64.9 35.0 - 70.0 % 12/13/2022 12:37 PM [facility] Lymphocytes % 22.4 20.0 - 43.0 % 12/13/2022 12:37 PM [facility] Monocytes % 9.3 5.0 - 13.0 % 12/13/2022 12:37 PM [facility] Eosinophils % 2.8 0.0 - 6.0 % 12/13/2022 12:37 PM [facility] Basophil % 0.3 0.0 - 2.0 % 12/13/2022 12:37 PM [facility] Neutrophils Absolute 7.67(H) 1.60 - 7.00 10? 3 /uL 12/13/2022 12:37 PM T [facility] Lymphocyte Absolute 2.65 1.10 - 3.90 10? 3 /uL 12/13/2022 12:37 PM T [facility] Monocytes Absolute 1.10(H) 0.26 - 1.07 10? 3 /uL 12/13/2022 12:37 PM [facility] Eosinophils Absolute 0.33 0.00 - 0.47 10? 3 /uL 12/13/2022 12:37 PM T [facility] Basophils Absolute 0.03 0.00 - 0.08 10? 3 /uL 12/13/2022 12:37 PM [facility] Immature Granulocytes % 0.3 0.0 - 1.0 % 12/13/2022 12:37 PM [facility] Immature Granulocytes Absolute 0.03 12/13/2022 12:37 PM [facility] Blood BLOOD SPECIMEN / Unknown Lab Venipuncture / Unknown 12/13/2022 11:18 AM CDT 12/13/2022 11:45 AM CDT Neville Hewitt III, MD LAB - HEMATOLOGY ORDERABLES Performing Organization Address [facility] de Phone Number [address] [address], [facility] [phone] * GLUCOSE - POINT OF CARE (12/13/2022 7:57 AM CDT) [facility] Glucose WB/POC 86 70 - 115 mg/dL 12/13/2022 8:02 AM CDT [facility] Specimen Type Arterial 12/13/2022 8:02 AM T [facility] Blood BLOOD SPECIMEN / Unknown 12/13/2022 7:57 AM CDT 12/13/2022 8:02 AM CDT Feliciano Madrid MD LAB - POINT OF CARE ORDERABLES [address] [address], [facility] [phone] * GLUCOSE - POINT OF CARE (12/13/2022 4:34 AM CDT) Glucose WB/POC 85 70 - 115 mg/dL 12/14/2022 8:23 AM CDT [facility] Specimen Type Cap Fingerstick 2022 8:23 AM CDT [facility] Blood BLOOD SPECIMEN / Unknown 12/13/2022 4:34 AM CDT 12/14/2022 8:23 AM CDT Feliciano Madrid MD LAB - POINT OF CARE ORDERABLES Performing Organization Address City/[facility]/ZIP Co de Phone Number [address] [address], [facility] [phone] * MAGNESIUM BLOOD (12/13/2022 1:46 AM CDT) Magnesium 1.8 1.6 - 2.6 mg/dL 12/13/2022 3:10 AM CDT [facility] Blood BLOOD SPECIMEN / Unknown Lab Venipuncture / Unknown 12/13/2022 1:46 AM CDT 12/13/2022 2:42 AM CDT Neville Hewitt III, MD LAB - CHEMISTRY ORDERABLES Performing Organization Address City/[facility]/ZIP Co de Phone Number [address] [address], [facility] [phone] * (ABNORMAL) RENAL FUNCTION PANEL (12/13/2022 1:46 AM CDT) BUN 12 7 - 26 mg/dL 12/13/2022 3:10 AM CDT [facility] Creatinine 0.49(L) 0.71 - 1.16 mg/dL 12/13/2022 3:10 AM [facility] Sodium 135(L) 136 - 145 mmol/L 12/13/2022 3:10 AM [facility] Potassium 4.7(H) 3.5 - 4.5 mmol/L 12/13/2022 3:10 AM [facility] Chloride 103 98 - 107 mmol/L 12/13/2022 3:10 AM [facility] CO2 25 22 - 29 mmol/L 12/13/2022 3:10 AM [facility] Glucose 94 70 - 115 mg/dL 12/13/2022 3:10 AM [facility] Albumin 2.5(L) 3.4 - 5.0 g/dL 12/13/2022 3:10 AM [facility] Calcium 9.9 8.4 - 10.2 mg/dL 12/13/2022 3:10 AM [facility] Phosphorus 2.6(L) 2.8 - 5.1 mg/dL 12/13/2022 3:10 AM [facility] Anion Gap 12 8 - 18 12/13/2022 3:10 AM [facility] BUN/Creatinine Ratio 24(H) 7 - 23 12/13/2022 3:10 AM [facility] Osmolality Calculated 280 270 - 300 mOsm/kg 12/13/2022 3:10 AM [facility] eGFR by CKD-EPI >90 >=90 mL/min/1.7 3 m2 12/13/2022 3:10 AM [facility] Blood BLOOD SPECIMEN / Unknown Lab Venipuncture / Unknown 12/13/2022 1:46 AM CDT 12/13/2022 2:42 AM CDT Neville Hewitt III, MD LAB - CHEMISTRY ORDERABLES [facility] [address] [place] [address], [facility] [phone] * PT-INR [facility] (12/13/2022 1:46 AM CDT) PT 13.3 12.1 - 14.8 Seconds 12/13/2022 3:06 AM CDT [facility] INR 1.0 See Comment 12/13/2022 3:06 AM CDT [facility] Comment:The suggested therap eutic range for standard coumadin (warfarin) therapy is an INR of 2.0-3.0. For high-risk patients (Mechanical Mitral Valve Prosthesis, etc.), the suggested prophylactic therapeutic range is an INR of 2.5-3.5. Blood BLOOD SPECIMEN / Unknown Lab Venipuncture / Unknown 12/13/2022 1:46 AM CDT 12/13/2022 2:42 AM CDT Feliciano Madrid MD LAB - COAGULATION OR DERABLES Performing Organization Address City/[facility]/ZIP Co de Phone Number [address] [address], [place] [phone] * (ABNORMAL) GLUCOSE - POINT OF CARE (12/13/2022 12:48 AM CDT) Glucose WB/POC 116(H) 70 - 115 mg/dL 12/13/2022 12:50 AM CDT [facility] Specimen Type Cap Fingerstick 2022 12:50 AM CDT [facility] Blood BLOOD SPECIMEN / Unknown 12/13/2022 12:48 AM CDT 12/13/2022 12:49 AM CDT Feliciano Madrid MD LAB - POINT OF CARE ORDERABLES [address] [address], [place] [phone] * GLUCOSE - POINT OF CARE (12/12/2022 10:08 PM CDT) Glucose WB/POC 101 70 - 115 mg/dL 12/12/2022 10:09 PM CDT [facility] Specimen Type Cap Fingerstick 2022 10:09 PM CDT [facility] Blood BLOOD SPECIMEN / Unknown 12/12/2022 10:08 PM CDT 12/12/2022 10:09 PM CDT Feliciano Madrid MD LAB - POINT OF CARE ORDERABLES [address] [address], [facility] [phone] * (ABNORMAL) GLUCOSE - POINT OF CARE (12/12/2022 5:13 PM CDT) [facility] Glucose WB/POC 119(H) 70 - 115 mg/dL 12/12/2022 5:19 PM CDT [facility] Specimen Type Cap Fingerstick 2022 5:19 PM CDT [facility] Blood BLOOD SPECIMEN / Unknown 12/12/2022 5:13 PM CDT 12/12/2022 5:19 PM CDT Feliciano Madrid MD LAB - POINT OF CARE ORDERABLES Performing Organization Address [facility]/ZIP Co de Phone Number [address] [address], [facility] [phone] * (ABNORMAL) CBC W AUTO DIFFERENTIAL (12/12/2022 3:30 PM CDT) [facility] WBC 9.2 3.5 - 10.5 10? 3 /uL 12/12/2022 3:51 PM CDT [facility] RBC 3.80(L) 4.30 - 5.70 10? 6 /uL 12/12/2022 3:51 PM CDT [facility] Hemoglobin 11.3(L) 12.0 - 17.6 g/dL 12/12/2022 3:51 PM CDT [facility] Hematocrit 34.7(L) 35.2 - 51.7 % 12/12/2022 3:51 PM CDT [facility] MCV 91.3 80.7 - 98.3 fL 12/12/2022 3:51 PM CDT [facility] MCH 29.7 26.7 - 34.0 pg 12/12/2022 3:51 PM CDT [facility] MCHC 32.6 30.8 - 35.9 g/dL 12/12/2022 3:51 PM [facility] RDW-SD 54.1(H) 36.0 - 50.0 fL 12/12/2022 3:51 PM [facility] RDW-CV 16.2(H) 11.2 - 14.8 % 12/12/2022 3:51 PM [facility] Platelet Count 202 150 - 400 10? 3 /uL 12/12/2022 3:51 PM [facility] MPV 11.5 9.4 - 12.9 fL 12/12/2022 3:51 PM [facility] nRBC Absolute 0.00 0 10? 3 /uL 12/12/2022 3:51 PM [facility] nRBC Auto 0.0 0 /100 WBC 12/12/2022 3:51 PM [facility] Neutrophils % 55.5 35.0 - 70.0 % 12/12/2022 3:51 PM [facility] Lymphocytes % 30.7 20.0 - 43.0 % 12/12/2022 3:51 PM [facility] Monocytes % 9.2 5.0 - 13.0 % 12/12/2022 3:51 PM [facility] Eosinophils % 4.1 0.0 - 6.0 % 12/12/2022 3:51 PM [facility] Basophil % 0.3 0.0 - 2.0 % 12/12/2022 3:51 PM [facility] Neutrophils Absolute 5.08 1.60 - 7.00 10? 3 /uL 12/12/2022 3:51 PM [facility] [facility] Lymphocyte Absolute 2.81 1.10 - 3.90 10? 3 /uL 12/12/2022 3:51 PM [facility] Monocytes Absolute 0.84 0.26 - 1.07 10? 3 /uL 12/12/2022 3:51 PM [facility] Eosinophils Absolute 0.38 0.00 - 0.47 10? 3 /uL 12/12/2022 3:51 PM [facility] Basophils Absolute 0.03 0.00 - 0.08 10? 3 /uL 12/12/2022 3:51 PM [facility] Immature Granulocytes % 0.2 0.0 - 1.0 % 12/12/2022 3:51 PM CDT [facility] Immature Granulocytes Absolute 0.02 12/12/2022 3:51 PM CDT [facility] Blood BLOOD SPECIMEN / Unknown Lab Venipuncture / Unknown 12/12/2022 3:30 PM CDT 12/12/2022 3:44 PM CDT Neville Heiwtt III, MD LAB - HEMATOLOGY ORDERABLES Performing Organization Address City/[facility]/ZIP Co de Phone Number [address] [address], [facility] [phone] * (ABNORMAL) GLUCOSE - POINT OF CARE (12/12/2022 12:49 PM CDT) Glucose WB/POC 126(H) 70 - 115 mg/dL 12/12/2022 1:12 PM CDT [facility] Specimen Type Cap Fingerstick 2022 1:12 PM CDT [facility] Blood BLOOD SPECIMEN / Unknown 12/12/2022 12:49 PM CDT 12/12/2022 1:12 PM CDT Feliciano Madrid MD LAB - POINT OF CARE ORDERABLES Performing Organization Address [facility]/ZIP Co de Phone Number [address] [address], [place] [phone] * (ABNORMAL) GLUCOSE - POINT OF CARE (12/12/2022 8:47 AM CDT) Glucose WB/POC 122(H) 70 - 115 mg/dL 12/12/2022 8:51 AM CDT [facility] Specimen Type Cap Fingerstick 2022 8:51 AM CDT [facility] Blood BLOOD SPECIMEN / Unknown 12/12/2022 8:47 AM CDT 12/12/2022 8:51 AM CDT Feliciano Madrid MD LAB - POINT OF CARE ORDERABLES Performing Organization Address City/[facility]/ZIP Co de Phone Number [address] [address], [place] [phone] * (ABNORMAL) GLUCOSE - POINT OF CARE (12/12/2022 4:24 AM CDT) Glucose WB/POC 128(H) 70 - 115 mg/dL 12/12/2022 4:29 AM CDT [facility] Specimen Type Cap Fingerstick 2022 4:29 AM CDT [facility] Blood BLOOD SPECIMEN / Unknown 12/12/2022 4:24 AM CDT 12/12/2022 4:29 AM CDT Feliciano Madrid MD LAB - POINT OF CARE ORDERABLES Performing Organization Address City/[facility]/ZIP Co de Phone Number [address] [address], [place] [phone] * MAGNESIUM BLOOD (12/12/2022 3:42 AM CDT) Pathologist [facility] Magnesium 1.7 1.6 - 2.6 mg/dL 12/12/2022 4:27 AM CDT [facility] Blood BLOOD SPECIMEN / Unknown Lab Venipuncture / Unknown 12/12/2022 3:42 AM CDT 12/12/2022 3:59 AM CDT Neville Hewitt III, MD LAB - CHEMISTRY ORDERABLES [address] [address], [place] [phone] * (ABNORMAL) RENAL FUNCTION PANEL (12/12/2022 3:42 AM CDT) Pathologist [facility] BUN 11 7 - 26 mg/dL 12/12/2022 4:27 AM CDT [facility] Creatinine 0.51(L) 0.71 - 1.16 mg/dL 12/12/2022 4:27 AM CDT [facility] Sodium 139 136 - 145 mmol/L 12/12/2022 4:27 AM [facility] Potassium 4.9(H) 3.5 - 4.5 mmol/L 12/12/2022 4:27 AM [facility] Chloride 105 98 - 107 mmol/L 12/12/2022 4:27 AM [facility] CO2 27 22 - 29 mmol/L 12/12/2022 4:27 AM [facility] Glucose 116(H) 70 - 115 mg/dL 12/12/2022 4:27 AM [facility] Albumin 2.4(L) 3.4 - 5.0 g/dL 12/12/2022 4:27 AM [facility] Calcium 9.9 8.4 - 10.2 mg/dL 12/12/2022 4:27 AM [facility] Phosphorus 2.7(L) 2.8 - 5.1 mg/dL 12/12/2022 4:27 AM [facility] Anion Gap 12 8 - 18 12/12/2022 4:27 AM [facility] BUN/Creatinine Ratio 22 7 - 23 12/12/2022 4:27 AM [facility] Osmolality Calculated 288 270 - 300 mOsm/kg 12/12/2022 4:27 AM [facility] eGFR by CKD-EPI >90 >=90 mL/min/1.7 3 m2 12/12/2022 4:27 AM [facility] Blood BLOOD SPECIMEN / Unknown Lab Venipuncture / Unknown 12/12/2022 3:42 AM CDT 12/12/2022 3:59 AM T Neville Hewitt III, MD LAB - CHEMISTRY ORDERABLES [facility] [address] [place] [address], [facility] [phone] * (ABNORMAL) GLUCOSE - POINT OF CARE (12/12/2022 12:49 AM CDT) Glucose WB/POC 125(H) 70 - 115 mg/dL 12/12/2022 7:57 AM [facility] Specimen Type Cap Fingerstick 2022 7:57 AM CDT [facility] Blood BLOOD SPECIMEN / Unknown 12/12/2022 12:49 AM CDT 12/12/2022 7:57 AM CDT Feliciano Madrid MD LAB - POINT OF CARE ORDERABLES Performing Organization Address City/[facility]/ZIP Co de Phone Number [address] [address], [place] [phone] * (ABNORMAL) GLUCOSE - POINT OF CARE (12/11/2022 8:44 PM CDT) Glucose WB/POC 126(H) 70 - 115 mg/dL 12/11/2022 9:16 PM CDT [facility] Specimen Type Cap Fingerstick 2022 9:16 PM CDT [facility] Blood BLOOD SPECIMEN / Unknown 12/11/2022 8:44 PM CDT 12/11/2022 9:16 PM CDT Feliciano Madrid MD LAB - POINT OF CARE ORDERABLES Performing Organization Address City/[facility]/ZIP Co de Phone Number [address] [address], [place] [phone] * GLUCOSE - POINT OF CARE (12/11/2022 4:52 PM CDT) Glucose WB/POC 114 70 - 115 mg/dL 12/11/2022 5:50 PM CDT [facility] Specimen Type Cap Fingerstick 2022 5:50 PM CDT [facility] Blood BLOOD SPECIMEN / Unknown 12/11/2022 4:52 PM CDT 12/11/2022 5:50 PM CDT Feliciano Madrid MD LAB - POINT OF CARE ORDERABLES [address] [address], [place] [phone] * GLUCOSE - POINT OF CARE (12/11/2022 1:46 PM CDT) Glucose WB/POC 112 70 - 115 mg/dL 12/11/2022 5:50 PM CDT [facility] Specimen Type Cap Fingerstick 2022 5:50 PM CDT [facility] Blood BLOOD SPECIMEN / Unknown 12/11/2022 1:46 PM CDT 12/11/2022 5:50 PM CDT Dina Franklin Park DO LAB - POINT OF CARE ORDERABLES Performing Organization Address City/[facility]/ZIP Co de Phone Number [address] [address], [place] [phone] * GLUCOSE - POINT OF CARE (12/11/2022 9:41 AM CDT) Glucose WB/POC 99 70 - 115 mg/dL 12/11/2022 12:57 PM CDT [facility] Specimen Type Venous 12/11/2022 12:57 PM CDT [facility] Blood BLOOD SPECIMEN / Unknown 12/11/2022 9:41 AM CDT 12/11/2022 12:57 PM CDT Dina Franklin Park DO LAB - POINT OF CARE ORDERABLES Performing Organization Address [facility]/ZIP Co de Phone Number [address] [address], [place] [phone] * (ABNORMAL) GLUCOSE - POINT OF CARE (12/11/2022 4:57 AM CDT) Glucose WB/POC 117(H) 70 - 115 mg/dL 12/11/2022 6:21 AM CDT [facility] Specimen Type Arterial 12/11/2022 6:21 AM CDT [facility] Blood BLOOD SPECIMEN / Unknown 12/11/2022 4:57 AM CDT 12/11/2022 6:21 AM CDT Dina Franklin Park DO LAB - POINT OF CARE ORDERABLES [facility] [address] [place] [address], [facility] [phone] * MAGNESIUM BLOOD (12/11/2022 4:02 AM CDT) Pathologist [facility] Magnesium 1.7 1.6 - 2.6 mg/dL 12/11/2022 5:56 AM [facility] Blood BLOOD SPECIMEN / Unknown Lab Venipuncture / Unknown 12/11/2022 4:02 AM CDT 12/11/2022 5:39 AM CDT Neville Hewitt III, MD LAB - CHEMISTRY ORDERABLES Performing Organization Address City/[facility]/ZIP Co de Phone Number [facility] [address] [place] [address], [facility] [phone] * (ABNORMAL) RENAL FUNCTION PANEL (12/11/2022 4:02 AM CDT) Pathologist [facility] BUN 11 7 - 26 mg/dL 12/11/2022 5:56 AM [facility] Creatinine 0.50(L) 0.71 - 1.16 mg/dL 12/11/2022 5:56 AM [facility] Sodium 138 136 - 145 mmol/L 12/11/2022 5:56 AM [facility] Potassium 4.1 3.5 - 4.5 mmol/L 12/11/2022 5:56 AM [facility] Chloride 104 98 - 107 mmol/L 12/11/2022 5:56 AM [facility] CO2 25 22 - 29 mmol/L 12/11/2022 5:56 AM [facility] Glucose 81 70 - 115 mg/dL 12/11/2022 5:56 AM [facility] Albumin 2.6(L) 3.4 - 5.0 g/dL 12/11/2022 5:56 AM [facility] Calcium 10.5(H) 8.4 - 10.2 mg/dL 12/11/2022 5:56 AM [facility] Phosphorus 2.9 2.8 - 5.1 mg/dL 12/11/2022 5:56 AM [facility] Anion Gap 13 8 - 18 12/11/2022 5:56 AM [facility] BUN/Creatinine Ratio 22 7 - 23 12/11/2022 5:56 AM [facility] Osmolality Calculated 284 270 - 300 mOsm/kg 12/11/2022 5:56 AM [facility] eGFR by CKD-EPI >90 >=90 mL/min/1.7 3 m2 12/11/2022 5:56 AM [facility] Blood BLOOD SPECIMEN / Unknown Lab Venipuncture / Unknown 12/11/2022 4:02 AM CDT 12/11/2022 5:39 AM T Neville Hewitt III, MD LAB - CHEMISTRY ORDERABLES [facility] [address] [place] [address], [facility] [phone] * (ABNORMAL) CBC W AUTO DIFFERENTIAL (12/11/2022 4:02 AM CDT) WBC 7.2 3.5 - 10.5 10? 3 /uL 12/11/2022 5:39 AM [facility] RBC 4.53 4.30 - 5.70 10? 6 /uL 12/11/2022 5:39 AM [facility] Hemoglobin 13.2 12.0 - 17.6 g/dL 12/11/2022 5:39 AM [facility] Hematocrit 41.7 35.2 - 51.7 % 12/11/2022 5:39 AM [facility] MCV 92.1 80.7 - 98.3 fL 12/11/2022 5:39 AM [facility] MCH 29.1 26.7 - 34.0 pg 12/11/2022 5:39 AM [facility] MCHC 31.7 30.8 - 35.9 g/dL 12/11/2022 5:39 AM [facility] RDW-SD 54.1(H) 36.0 - 50.0 fL 12/11/2022 5:39 AM [facility] RDW-CV 15.9(H) 11.2 - 14.8 % 12/11/2022 5:39 AM [facility] Platelet Count 236 150 - 400 10? 3 /uL 12/11/2022 5:39 AM [facility] MPV 11.7 9.4 - 12.9 fL 12/11/2022 5:39 AM [facility] nRBC Absolute 0.00 0 10? 3 /uL 12/11/2022 5:39 AM [facility] nRBC Auto 0.0 0 /100 WBC 12/11/2022 5:39 AM [facility] Neutrophils % 46.4 35.0 - 70.0 % 12/11/2022 5:39 AM [facility] Lymphocytes % 37.0 20.0 - 43.0 % 12/11/2022 5:39 AM [facility] Monocytes % 11.3 5.0 - 13.0 % 12/11/2022 5:39 AM [facility] Eosinophils % 4.7 0.0 - 6.0 % 12/11/2022 5:39 AM [facility] Basophil % 0.3 0.0 - 2.0 % 12/11/2022 5:39 AM [facility] Neutrophils Absolute 3.33 1.60 - 7.00 10? 3 /uL 12/11/2022 5:39 AM [facility] Lymphocyte Absolute 2.66 1.10 - 3.90 10? 3 /uL 12/11/2022 5:39 AM [facility] Monocytes Absolute 0.81 0.26 - 1.07 10? 3 /uL 12/11/2022 5:39 AM [facility] Eosinophils Absolute 0.34 0.00 - 0.47 10? 3 /uL 12/11/2022 5:39 AM [facility] Basophils Absolute 0.02 0.00 - 0.08 10? 3 /uL 12/11/2022 5:39 AM [facility] Immature Granulocytes % 0.3 0.0 - 1.0 % 12/11/2022 5:39 AM [facility] Immature Granulocytes Absolute 0.02 12/11/2022 5:39 AM [facility] Blood BLOOD SPECIMEN / Unknown Lab Venipuncture / Unknown 12/11/2022 4:02 AM CDT 12/11/2022 5:15 AM CDT Neville Hewitt III, MD LAB - HEMATOLOGY ORDERABLES [facility] [address] [place] [address], [place] [phone] * GLUCOSE - POINT OF CARE (12/11/2022 12:55 AM CDT) Glucose WB/POC 114 70 - 115 mg/dL 12/11/2022 3:04 AM CDT [facility] Specimen Type Arterial 12/11/2022 3:04 AM CDT [facility] Blood BLOOD SPECIMEN / Unknown 12/11/2022 12:55 AM CDT 12/11/2022 3:04 AM CDT Dina Franklin Park DO LAB - POINT OF CARE ORDERABLES [address] [address], [place] [phone] * GLUCOSE - POINT OF CARE (12/10/2022 8:30 PM CDT) Glucose WB/POC 103 70 - 115 mg/dL 12/10/2022 8:35 PM CDT [facility] Specimen Type Arterial 12/10/2022 8:35 PM CDT [facility] Blood BLOOD SPECIMEN / Unknown 12/10/2022 8:30 PM CDT 12/10/2022 8:35 PM CDT Dina Franklin Park DO LAB - POINT OF CARE ORDERABLES [facility] [address] [place] [address], [place] [phone] * GLUCOSE - POINT OF CARE (12/10/2022 4:27 PM CDT) Glucose WB/POC 91 70 - 115 mg/dL 12/10/2022 4:32 PM CDT [facility] Specimen Type Cap Fingerstick 2022 4:32 PM CDT [facility] Blood BLOOD SPECIMEN / Unknown 12/10/2022 4:27 PM CDT 12/10/2022 4:32 PM CDT Dina Pritchard DO LAB - POINT OF CARE ORDERABLES Performing Organization Address City/[facility]/ZIP Co de Phone Number [facility] [address] [place] [address], [facility] [phone] * GASTROSTOMY TUBE, CHANGE / REPOSITION (12/10/2022 1:11 PM CDT) Narrative [facility] - 12/10/2022 1:11 PM CDT Marcella [...] Hepatology Fellow Division of Gastroenterology and Hepatology [facility] [employer] Dina Pritchard DO GI PROCEDURE ORDERAB LES Performing Organization Address City/[facility]/ZIP Co de Phone Number [facility] * GLUCOSE - POINT OF CARE (12/10/2022 8:35 AM CDT) Glucose WB/POC 92 70 - 115 mg/dL 12/10/2022 8:45 AM CDT [facility] Specimen Type Cap Fingerstick 2022 8:45 AM CDT [facility] Blood BLOOD SPECIMEN / Unknown 12/10/2022 8:35 AM CDT 12/10/2022 8:45 AM CDT Dina Pritchard DO LAB - POINT OF CARE ORDERABLES [address] [address], [place] [phone] * GLUCOSE - POINT OF CARE (12/10/2022 4:33 AM CDT) Glucose WB/POC 86 70 - 115 mg/dL 12/10/2022 4:38 AM CDT [facility] Specimen Type Cap Fingerstick 2022 4:38 AM CDT [facility] Blood BLOOD SPECIMEN / Unknown 12/10/2022 4:33 AM CDT 12/10/2022 4:38 AM CDT Dina Franklin Park DO LAB - POINT OF CARE ORDERABLES Performing Organization Address City/[facility]/ZIP Co de Phone Number [address] [address], [place] [phone] * MAGNESIUM BLOOD (12/10/2022 3:44 AM CDT) Magnesium 1.7 1.6 - 2.6 mg/dL 12/10/2022 4:17 AM CDT [facility] Blood BLOOD SPECIMEN / Unknown Venipuncture / Unknown 12/10/2022 3:44 AM CDT 12/10/2022 4:04 AM CDT Neville Hewitt III, MD LAB - CHEMISTRY ORDERABLES Performing Organization Address City/[facility]/ZIP Co de Phone Number [address] [address], [place] [phone] * (ABNORMAL) RENAL FUNCTION PANEL (12/10/2022 3:44 AM CDT) BUN 15 7 - 26 mg/dL 12/10/2022 4:17 AM [facility] Creatinine 0.50(L) 0.71 - 1.16 mg/dL 12/10/2022 4:17 AM [facility] Sodium 139 136 - 145 mmol/L 12/10/2022 4:17 AM [facility] Potassium 4.8(H) 3.5 - 4.5 mmol/L 12/10/2022 4:17 AM [facility] Chloride 104 98 - 107 mmol/L 12/10/2022 4:17 AM [facility] CO2 28 22 - 29 mmol/L 12/10/2022 4:17 AM [facility] Glucose 88 70 - 115 mg/dL 12/10/2022 4:17 AM [facility] Albumin 2.6(L) 3.4 - 5.0 g/dL 12/10/2022 4:17 AM [facility] Calcium 10.4(H) 8.4 - 10.2 mg/dL 12/10/2022 4:17 AM [facility] Phosphorus 2.9 2.8 - 5.1 mg/dL 12/10/2022 4:17 AM [facility] Anion Gap 12 8 - 18 12/10/2022 4:17 AM [facility] BUN/Creatinine Ratio 30(H) 7 - 23 12/10/2022 4:17 AM [facility] Osmolality Calculated 288 270 - 300 mOsm/kg 12/10/2022 4:17 AM [facility] eGFR by CKD-EPI >90 >=90 mL/min/1.7 3 m2 12/10/2022 4:17 AM [facility] Blood BLOOD SPECIMEN / Unknown Venipuncture / Unknown 12/10/2022 3:44 AM CDT 12/10/2022 4:04 AM T Neville Hewitt III, MD LAB - CHEMISTRY ORDERABLES [facility] [address] [place] [address], [facility] [phone] * (ABNORMAL) CBC W AUTO DIFFERENTIAL (12/10/2022 3:44 AM CDT) WBC 6.9 3.5 - 10.5 10? 3 /uL 12/10/2022 4:10 AM CDT [facility] RBC 4.32 4.30 - 5.70 10? 6 /uL 12/10/2022 4:10 AM [facility] Hemoglobin 13.0 12.0 - 17.6 g/dL 12/10/2022 4:10 AM [facility] Hematocrit 39.9 35.2 - 51.7 % 12/10/2022 4:10 AM [facility] MCV 92.4 80.7 - 98.3 fL 12/10/2022 4:10 AM [facility] MCH 30.1 26.7 - 34.0 pg 12/10/2022 4:10 AM [facility] MCHC 32.6 30.8 - 35.9 g/dL 12/10/2022 4:10 AM [facility] RDW-SD 54.1(H) 36.0 - 50.0 fL 12/10/2022 4:10 AM [facility] RDW-CV 15.9(H) 11.2 - 14.8 % 12/10/2022 4:10 AM [facility] Platelet Count 266 150 - 400 10? 3 /uL 12/10/2022 4:10 AM [facility] MPV 11.1 9.4 - 12.9 fL 12/10/2022 4:10 AM [facility] Immature Platelet Fraction 5.8 1.1 - 6.2 % 12/10/2022 4:10 AM [facility] nRBC Absolute 0.00 0 10? 3 /uL 12/10/2022 4:10 AM [facility] nRBC Auto 0.0 0 /100 WBC 12/10/2022 4:10 AM [facility] Neutrophils % 48.0 35.0 - 70.0 % 12/10/2022 4:10 AM [facility] Lymphocytes % 37.3 20.0 - 43.0 % 12/10/2022 4:10 AM [facility] Monocytes % 9.7 5.0 - 13.0 % 12/10/2022 4:10 AM [facility] Eosinophils % 4.4 0.0 - 6.0 % 12/10/2022 4:10 AM [facility] Basophil % 0.3 0.0 - 2.0 % 12/10/2022 4:10 AM [facility] Neutrophils Absolute 3.31 1.60 - 7.00 10? 3 /uL 12/10/2022 4:10 AM [facility] Lymphocyte Absolute 2.57 1.10 - 3.90 10? 3 /uL 12/10/2022 4:10 AM [facility] Monocytes Absolute 0.67 0.26 - 1.07 10? 3 /uL 12/10/2022 4:10 AM [facility] Eosinophils Absolute 0.30 0.00 - 0.47 10? 3 /uL 12/10/2022 4:10 AM [facility] Basophils Absolute 0.02 0.00 - 0.08 10? 3 /uL 12/10/2022 4:10 AM [facility] Immature Granulocytes % 0.3 0.0 - 1.0 % 12/10/2022 4:10 AM [facility] Immature Granulocytes Absolute 0.02 12/10/2022 4:10 AM [facility] Blood BLOOD SPECIMEN / Unknown Venipuncture / Unknown 12/10/2022 3:44 AM CDT 12/10/2022 3:59 AM CDT Neville Hewitt III, MD LAB - HEMATOLOGY ORDERABLES [facility] [address] [place] [address], [facility] [phone] * (ABNORMAL) GLUCOSE - POINT OF CARE (12/10/2022 12:34 AM CDT) [facility] Glucose WB/POC 120(H) 70 - 115 mg/dL 12/12/2022 6:12 PM CDT [facility] Specimen Type Cap Fingerstick 2022 6:12 PM CDT [facility] Blood BLOOD SPECIMEN / Unknown 12/10/2022 12:34 AM CDT 12/12/2022 6:12 PM CDT Dina [place] DO LAB - POINT OF CARE ORDERABLES [address] [address], [place] [phone] * GLUCOSE - POINT OF CARE (12/09/2022 8:04 PM CDT) Glucose WB/POC 115 70 - 115 mg/dL 12/09/2022 8:09 PM CDT [facility] Specimen Type Cap Fingerstick 2022 8:09 PM CDT [facility] Blood BLOOD SPECIMEN / Unknown 12/09/2022 8:04 PM CDT 12/09/2022 8:09 PM CDT Dina [place] DO LAB - POINT OF CARE ORDERABLES Performing Organization Address [facility]/ZIP Co de Phone Number [address] [address], [place] [phone] * GLUCOSE - POINT OF CARE (12/09/2022 4:20 PM CDT) Glucose WB/POC 89 70 - 115 mg/dL 12/09/2022 4:24 PM CDT [facility] Specimen Type Cap Fingerstick 2022 4:24 PM CDT [facility] Blood BLOOD SPECIMEN / Unknown 12/09/2022 4:20 PM CDT 12/09/2022 4:24 PM CDT Dina [place] DO LAB - POINT OF CARE ORDERABLES [address] [address], [place] [phone] * GLUCOSE - POINT OF CARE (12/09/2022 12:52 PM CDT) Glucose WB/POC 74 70 - 115 mg/dL 12/09/2022 12:57 PM CDT [facility] Specimen Type Cap Fingerstick 2022 12:57 PM CDT [facility] Blood BLOOD SPECIMEN / Unknown 12/09/2022 12:52 PM CDT 12/09/2022 12:57 PM CDT Dina Pritchard DO LAB - POINT OF CARE ORDERABLES [address] [address], [place] [phone] * PT-INR [facility] (12/09/2022 12:11 PM CDT) Pathologist [facility] PT 14.3 12.1 - 14.8 Seconds 12/09/2022 12:55 PM CDT [facility] INR 1.1 See Comment 12/09/2022 12:55 PM CDT [facility] Comment:The suggested therap eutic range for standard coumadin (warfarin) therapy is an INR of 2.0-3.0. For high-risk patients (Mechanical Mitral Valve Prosthesis, etc.), the suggested prophylactic therapeutic range is an INR of 2.5-3.5. Blood BLOOD SPECIMEN / Unknown Lab Venipuncture / Unknown 12/09/2022 12:11 PM CDT 12/09/2022 12:14 PM CDT Gaurav Leroy PA-C LAB - COAGULATIO N ORDERABLES [facility] [address] [place] [address], [place] [phone] * GLUCOSE - POINT OF CARE (12/09/2022 7:59 AM CDT) Glucose WB/POC 88 70 - 115 mg/dL 12/09/2022 8:04 AM CDT [facility] Specimen Type Cap Fingerstick 2022 8:04 AM CDT [facility] Blood BLOOD SPECIMEN / Unknown 12/09/2022 7:59 AM CDT 12/09/2022 8:03 AM CDT Dina [place] DO LAB - POINT OF CARE ORDERABLES [address] [address], [place] [phone] * GLUCOSE - POINT OF CARE (12/09/2022 6:02 AM CDT) Glucose WB/POC 102 70 - 115 mg/dL 12/09/2022 6:07 AM CDT [facility] Specimen Type Arterial 12/09/2022 6:07 AM CDT [facility] Blood BLOOD SPECIMEN / Unknown 12/09/2022 6:02 AM CDT 12/09/2022 6:07 AM CDT Dina Pritchard DO LAB - POINT OF CARE ORDERABLES Performing Organization Address City/[facility]/ZIP Co de Phone Number [address] [address], [place] [phone] * MAGNESIUM BLOOD (12/09/2022 5:52 AM CDT) Magnesium 1.8 1.6 - 2.6 mg/dL 12/09/2022 6:43 AM CDT [facility] Blood BLOOD SPECIMEN / Unknown Lab Venipuncture / Unknown 12/09/2022 5:52 AM CDT 12/09/2022 6:26 AM CDT Neville Hewitt III, MD LAB - CHEMISTRY ORDERABLES [address] [address], [place] [phone] * (ABNORMAL) RENAL FUNCTION PANEL (12/09/2022 5:52 AM CDT) BUN 13 7 - 26 mg/dL 12/09/2022 6:43 AM [facility] Creatinine 0.47(L) 0.71 - 1.16 mg/dL 12/09/2022 6:43 AM [facility] Sodium 138 136 - 145 mmol/L 12/09/2022 6:43 AM [facility] Potassium 4.5 3.5 - 4.5 mmol/L 12/09/2022 6:43 AM [facility] Chloride 106 98 - 107 mmol/L 12/09/2022 6:43 AM [facility] CO2 27 22 - 29 mmol/L 12/09/2022 6:43 AM [facility] Glucose 112 70 - 115 mg/dL 12/09/2022 6:43 AM [facility] Albumin 2.3(L) 3.4 - 5.0 g/dL 12/09/2022 6:43 AM [facility] Calcium 10.1 8.4 - 10.2 mg/dL 12/09/2022 6:43 AM [facility] Phosphorus 2.8 2.8 - 5.1 mg/dL 12/09/2022 6:43 AM [facility] Anion Gap 10 8 - 18 12/09/2022 6:43 AM [facility] BUN/Creatinine Ratio 28(H) 7 - 23 12/09/2022 6:43 AM [facility] Osmolality Calculated 287 270 - 300 mOsm/kg 12/09/2022 6:43 AM [facility] eGFR by CKD-EPI >90 >=90 mL/min/1.7 3 m2 12/09/2022 6:43 AM [facility] Blood BLOOD SPECIMEN / Unknown Lab Venipuncture / Unknown 12/09/2022 5:52 AM CDT 12/09/2022 6:26 AM [facility] Neville Hewitt III, MD LAB - CHEMISTRY ORDERABLES [facility] [address] [place] [address], [facility] [phone] * (ABNORMAL) CBC W AUTO DIFFERENTIAL (12/09/2022 5:52 AM [facility] [facility] WBC 7.1 3.5 - 10.5 10? 3 /uL 12/09/2022 6:32 AM [facility] RBC 4.05(L) 4.30 - 5.70 10? 6 /uL 12/09/2022 6:32 AM [facility] Hemoglobin 12.0 12.0 - 17.6 g/dL 12/09/2022 6:32 AM [facility] Hematocrit 36.5 35.2 - 51.7 % 12/09/2022 6:32 AM [facility] MCV 90.1 80.7 - 98.3 fL 12/09/2022 6:32 AM [facility] MCH 29.6 26.7 - 34.0 pg 12/09/2022 6:32 AM [facility] MCHC 32.9 30.8 - 35.9 g/dL 12/09/2022 6:32 AM [facility] RDW-SD 52.1(H) 36.0 - 50.0 fL 12/09/2022 6:32 AM [facility] RDW-CV 15.9(H) 11.2 - 14.8 % 12/09/2022 6:32 AM [facility] Platelet Count 295 150 - 400 10? 3 /uL 12/09/2022 6:32 AM [facility] MPV 10.8 9.4 - 12.9 fL 12/09/2022 6:32 AM [facility] nRBC Absolute 0.00 0 10? 3 /uL 12/09/2022 6:32 AM [facility] nRBC Auto 0.0 0 /100 WBC 12/09/2022 6:32 AM [facility] Neutrophils % 50.1 35.0 - 70.0 % 12/09/2022 6:32 AM [facility] Lymphocytes % 34.6 20.0 - 43.0 % 12/09/2022 6:32 AM [facility] Monocytes % 10.3 5.0 - 13.0 % 12/09/2022 6:32 AM [facility] Eosinophils % 4.1 0.0 - 6.0 % 12/09/2022 6:32 AM [facility] Basophil % 0.6 0.0 - 2.0 % 12/09/2022 6:32 AM [facility] Neutrophils Absolute 3.54 1.60 - 7.00 10? 3 /uL 12/09/2022 6:32 AM [facility] Lymphocyte Absolute 2.44 1.10 - 3.90 10? 3 /uL 12/09/2022 6:32 AM [facility] Monocytes Absolute 0.73 0.26 - 1.07 10? 3 /uL 12/09/2022 6:32 AM [facility] Eosinophils Absolute 0.29 0.00 - 0.47 10? 3 /uL 12/09/2022 6:32 AM [facility] Basophils Absolute 0.04 0.00 - 0.08 10? 3 /uL 12/09/2022 6:32 AM [facility] Immature Granulocytes % 0.3 0.0 - 1.0 % 12/09/2022 6:32 AM [facility] Immature Granulocytes Absolute 0.02 12/09/2022 6:32 AM [facility] Blood BLOOD SPECIMEN / Unknown Lab Venipuncture / Unknown 12/09/2022 5:52 AM CDT 12/09/2022 6:11 AM CDT Neville Hewitt III, MD LAB - HEMATOLOGY ORDERABLES Performing Organization Address [facility] [[email or web address]] Co de Phone Number [facility] [address] [place] [address] [phone] * (ABNORMAL) GLUCOSE - POINT OF CARE (12/08/2022 6:36 PM CDT) Glucose WB/POC 121(H) 70 - 115 mg/dL 12/08/2022 6:41 PM T [facility] Specimen Type Cap Fingerstick 2022 6:41 PM [facility] Blood BLOOD SPECIMEN / Unknown 12/08/2022 6:36 PM CDT 12/08/2022 6:41 PM CDT [facility] LAB - POINT OF CARE ORDERABLES [address] [address], [place] [phone] * GLUCOSE - POINT OF CARE (12/08/2022 4:10 PM CDT) Glucose WB/POC 107 70 - 115 mg/dL 12/08/2022 4:15 PM CDT [facility] Specimen Type Cap Fingerstick 2022 4:15 PM CDT [facility] Blood BLOOD SPECIMEN / Unknown 12/08/2022 4:10 PM CDT 12/08/2022 4:14 PM CDT [facility] LAB - POINT OF CARE ORDERABLES Performing Organization Address City/[facility]/ZIP Co de Phone Number [address] [address], [place] [phone] * (ABNORMAL) GLUCOSE - POINT OF CARE (12/08/2022 7:51 AM CDT) Glucose WB/POC 118(H) 70 - 115 mg/dL 12/08/2022 8:01 AM CDT [facility] Specimen Type Cap Fingerstick 2022 8:01 AM CDT [facility] Blood BLOOD SPECIMEN / Unknown 12/08/2022 7:51 AM CDT 12/08/2022 8:01 AM CDT Stephen Witt MD LAB - POINT OF CARE ORDERABLES [address] [address], [place] [phone] * (ABNORMAL) GLUCOSE - POINT OF CARE (12/08/2022 7:05 AM CDT) Glucose WB/POC 123(H) 70 - 115 mg/dL 12/08/2022 7:10 AM CDT [facility] Specimen Type Arterial 12/08/2022 7:10 AM CDT [facility] Blood BLOOD SPECIMEN / Unknown 12/08/2022 7:05 AM CDT 12/08/2022 7:10 AM CDT Stephen Witt MD LAB - POINT OF CARE ORDERABLES [address] [address], [facility] [phone] * MAGNESIUM BLOOD (12/08/2022 4:28 AM CDT) Magnesium 1.9 1.6 - 2.6 mg/dL 12/08/2022 6:18 AM [facility] Blood BLOOD SPECIMEN / Unknown Lab Venipuncture / Unknown 12/08/2022 4:28 AM CDT 12/08/2022 5:36 AM CDT Neville Hewitt III, MD LAB - CHEMISTRY ORDERABLES [address] [address], [facility] [phone] * (ABNORMAL) RENAL FUNCTION PANEL (12/08/2022 4:28 AM CDT) BUN 16 7 - 26 mg/dL 12/08/2022 6:18 AM [facility] Creatinine 0.49(L) 0.71 - 1.16 mg/dL 12/08/2022 6:18 AM [facility] Sodium 137 136 - 145 mmol/L 12/08/2022 6:18 AM [facility] Potassium 4.6(H) 3.5 - 4.5 mmol/L 12/08/2022 6:18 AM [facility] Chloride 104 98 - 107 mmol/L 12/08/2022 6:18 AM [facility] CO2 26 22 - 29 mmol/L 12/08/2022 6:18 AM [facility] Glucose 105 70 - 115 mg/dL 12/08/2022 6:18 AM [facility] Albumin 2.5(L) 3.4 - 5.0 g/dL 12/08/2022 6:18 AM [facility] Calcium 10.6(H) 8.4 - 10.2 mg/dL 12/08/2022 6:18 AM [facility] Phosphorus 2.8 2.8 - 5.1 mg/dL 12/08/2022 6:18 AM [facility] Anion Gap 12 8 - 18 12/08/2022 6:18 AM [facility] BUN/Creatinine Ratio 33(H) 7 - 23 12/08/2022 6:18 AM [facility] Osmolality Calculated 286 270 - 300 mOsm/kg 12/08/2022 6:18 AM [facility] eGFR by CKD-EPI >90 >=90 mL/min/1.7 3 m2 12/08/2022 6:18 AM [facility] Blood BLOOD SPECIMEN / Unknown Lab Venipuncture / Unknown 12/08/2022 4:28 AM CDT 12/08/2022 5:36 AM CDT Neville Hewitt III, MD LAB - CHEMISTRY ORDERABLES Performing Organization Address City/State/[facility] [[email or web address] Co de Phone Number [facility] [address] [place] [address], [facility] [phone] * (ABNORMAL) CBC W AUTO DIFFERENTIAL (12/08/2022 4:28 AM CDT) WBC 8.7 3.5 - 10.5 10? 3 /uL 12/08/2022 5:44 AM [facility] RBC 3.94(L) 4.30 - 5.70 10? 6 /uL 12/08/2022 5:44 AM [facility] Hemoglobin 11.8(L) 12.0 - 17.6 g/dL 12/08/2022 5:44 AM [facility] Hematocrit 36.7 35.2 - 51.7 % 12/08/2022 5:44 AM [facility] MCV 93.1 80.7 - 98.3 fL 12/08/2022 5:44 AM [facility] MCH 29.9 26.7 - 34.0 pg 12/08/2022 5:44 AM [facility] MCHC 32.2 30.8 - 35.9 g/dL 12/08/2022 5:44 AM [facility] RDW-SD 54.2(H) 36.0 - 50.0 fL 12/08/2022 5:44 AM [facility] RDW-CV 15.9(H) 11.2 - 14.8 % 12/08/2022 5:44 AM [facility] Platelet Count 343 150 - 400 10? 3 /uL 12/08/2022 5:44 AM [facility] MPV 11.5 9.4 - 12.9 fL 12/08/2022 5:44 AM [facility] nRBC Absolute 0.00 0 10? 3 /uL 12/08/2022 5:44 AM [facility] nRBC Auto 0.0 0 /100 WBC 12/08/2022 5:44 AM [facility] Neutrophils % 55.3 35.0 - 70.0 % 12/08/2022 5:44 AM [facility] Lymphocytes % 29.8 20.0 - 43.0 % 12/08/2022 5:44 AM [facility] Monocytes % 11.3 5.0 - 13.0 % 12/08/2022 5:44 AM [facility] Eosinophils % 2.9 0.0 - 6.0 % 12/08/2022 5:44 AM [facility] Basophil % 0.5 0.0 - 2.0 % 12/08/2022 5:44 AM [facility] Neutrophils Absolute 4.82 1.60 - 7.00 10? 3 /uL 12/08/2022 5:44 AM [facility] Lymphocyte Absolute 2.59 1.10 - 3.90 10? 3 /uL 12/08/2022 5:44 AM [facility] Monocytes Absolute 0.98 0.26 - 1.07 10? 3 /uL 12/08/2022 5:44 AM [facility] Eosinophils Absolute 0.25 0.00 - 0.47 10? 3 /uL 12/08/2022 5:44 AM CDT [facility] Basophils Absolute 0.04 0.00 - 0.08 10? 3 /uL 12/08/2022 5:44 AM CDT [facility] Immature Granulocytes % 0.2 0.0 - 1.0 % 12/08/2022 5:44 AM CDT [facility] Immature Granulocytes Absolute 0.02 12/08/2022 5:44 AM CDT [facility] Blood BLOOD SPECIMEN / Unknown Lab Venipuncture / Unknown 12/08/2022 4:28 AM CDT 12/08/2022 5:36 AM CDT Neville Hewitt III, MD LAB - HEMATOLOGY ORDERABLES [facility] [address] [place] [address], [place] [phone] * GLUCOSE - POINT OF CARE (12/07/2022 6:08 PM CDT) Pathologist [facility] Glucose WB/POC 92 70 - 115 mg/dL 12/08/2022 7:33 PM CDT [facility] Specimen Type Arterial 12/08/2022 7:33 PM CDT [facility] Blood BLOOD SPECIMEN / Unknown 12/07/2022 6:08 PM CDT 12/08/2022 7:33 PM CDT Stephen Witt MD LAB - POINT OF CARE ORDERABLES [facility] [address] [place] [address], [place] [phone] * NM GASTRIC EMPTYING (12/07/2022 3:51 PM CDT) Anatomical Region Laterality Modality Abdomen Nuclear Medicine 12/07/2022 2:16 PM CDT Impressions 12/07/2022 4:40 PM CDT Impression: ?? Abnormal delayed gastric emptying with T 1/2 of >120 minutes. Of note, standardized normal values are not established for liquid gastric emptying and may vary per institution protocol. > Dictated by Concha Turner MD (Packaging Line Attendant) 12/07/2022 2:16 PM Sarah Thomason DO have personally reviewed and interpreted this examination/study. > Interpreting Provider: Sarah Mason DO on 12/07/2022 4:40 PM Narrative 12/07/2022 4:40 PM CDT PROCEDURE: ??NM GASTRIC EMPTYING DATE/TIME OF EXAM: ??12/07/2022 2:25 PM CLINICAL INFORMATION: None relevant/not provided if blank. Indication: Z93.1: PEG (percutaneous endoscopic gastrostomy) status ([facility]) Procedure: Gastric Emptying Study History: 62-year-old male [...] ?? @ 90 minutes Procedure Note Sarah Mason DO - 12/07/2022 PROCEDURE: NM GASTRIC EMPTYING DATE/TIME OF EXAM: 12/07/2022 2:25 PM CLINICAL INFORMATION: None relevant/not provided if blank. Indication: Z93.1: PEG (percutaneous endoscopic gastrostomy) status ([facility]) Procedure: Gastric Emptying Study History: 62-year-old male [...] protocol. > Dictated by Concha Turner MD (Packaging Line Attendant) 12/07/2022 2:16PM ISarah DO have personally reviewed and interpreted this examination/study. > Interpreting Provider: Sarah Mason DO on 12/07/2022 4:40 PM Ilir Mckenzie MD NM ORDERABLES * MAGNESIUM BLOOD (12/07/2022 2:28 AM CDT) Magnesium 1.8 1.6 - 2.6 mg/dL 12/07/2022 3:19 AM CDT [facility] Blood BLOOD SPECIMEN / Unknown Venipuncture / Unknown 12/07/2022 2:28 AM CDT 12/07/2022 2:42 AM CDT Neville Hewitt III, MD LAB - CHEMISTRY ORDERABLES [facility] [address] [place] [address], [facility] [phone] * (ABNORMAL) RENAL FUNCTION PANEL (12/07/2022 2:28 AM CDT) BUN 18 7 - 26 mg/dL 12/07/2022 3:19 AM CDT [facility] Creatinine 0.47(L) 0.71 - 1.16 mg/dL 12/07/2022 3:19 AM CDT [facility] Sodium 137 136 - 145 mmol/L 12/07/2022 3:19 AM CDT [facility] Potassium 4.7(H) 3.5 - 4.5 mmol/L 12/07/2022 3:19 AM [facility] Chloride 103 98 - 107 mmol/L 12/07/2022 3:19 AM [facility] CO2 27 22 - 29 mmol/L 12/07/2022 3:19 AM [facility] Glucose 95 70 - 115 mg/dL 12/07/2022 3:19 AM [facility] Albumin 2.4(L) 3.4 - 5.0 g/dL 12/07/2022 3:19 AM [facility] Calcium 10.6(H) 8.4 - 10.2 mg/dL 12/07/2022 3:19 AM [facility] Phosphorus 3.0 2.8 - 5.1 mg/dL 12/07/2022 3:19 AM [facility] Anion Gap 12 8 - 18 12/07/2022 3:19 AM [facility] BUN/Creatinine Ratio 38(H) 7 - 23 12/07/2022 3:19 AM [facility] Osmolality Calculated 286 270 - 300 mOsm/kg 12/07/2022 3:19 AM [facility] eGFR by CKD-EPI >90 >=90 mL/min/1.7 3 m2 12/07/2022 3:19 AM [facility] Blood BLOOD SPECIMEN / Unknown Venipuncture / Unknown 12/07/2022 2:28 AM CDT 12/07/2022 2:42 AM T Neville Hewitt III, MD LAB - CHEMISTRY ORDERABLES [facility] [address] [place] [id number] [phone] * (ABNORMAL) CBC W AUTO DIFFERENTIAL (12/07/2022 2:28 AM CDT) WBC 10.4 3.5 - 10.5 10? 3 /uL 12/07/2022 3:03 AM [facility] RBC 3.73(L) 4.30 - 5.70 10? 6 /uL 12/07/2022 3:03 AM [facility] Hemoglobin 11.2(L) 12.0 - 17.6 g/dL 12/07/2022 3:03 AM [facility] Hematocrit 34.5(L) 35.2 - 51.7 % 12/07/2022 3:03 AM [facility] MCV 92.5 80.7 - 98.3 fL 12/07/2022 3:03 AM [facility] MCH 30.0 26.7 - 34.0 pg 12/07/2022 3:03 AM [facility] MCHC 32.5 30.8 - 35.9 g/dL 12/07/2022 3:03 AM [facility] RDW-SD 54.0(H) 36.0 - 50.0 fL 12/07/2022 3:03 AM [facility] RDW-CV 16.0(H) 11.2 - 14.8 % 12/07/2022 3:03 AM [facility] Platelet Count 426(H) 150 - 400 10? 3 /uL 12/07/2022 3:03 AM [facility] MPV 10.6 9.4 - 12.9 fL 12/07/2022 3:03 AM [facility] nRBC Absolute 0.00 0 10? 3 /uL 12/07/2022 3:03 AM [facility] nRBC Auto 0.0 0 /100 WBC 12/07/2022 3:03 AM [facility] Neutrophils % 55.8 35.0 - 70.0 % 12/07/2022 3:03 AM [facility] Lymphocytes % 28.0 20.0 - 43.0 % 12/07/2022 3:03 AM [facility] Monocytes % 11.6 5.0 - 13.0 % 12/07/2022 3:03 AM [facility] Eosinophils % 3.9 0.0 - 6.0 % 12/07/2022 3:03 AM [facility] Basophil % 0.2 0.0 - 2.0 % 12/07/2022 3:03 AM [facility] Neutrophils Absolute 5.82 1.60 - 7.00 10? 3 /uL 12/07/2022 3:03 AM CDT [facility] Lymphocyte Absolute 2.92 1.10 - 3.90 10? 3 /uL 12/07/2022 3:03 AM CDT [facility] Monocytes Absolute 1.21(H) 0.26 - 1.07 10? 3 /uL 12/07/2022 3:03 AM CDT [facility] Eosinophils Absolute 0.41 0.00 - 0.47 10? 3 /uL 12/07/2022 3:03 AM CDT [facility] Basophils Absolute 0.02 0.00 - 0.08 10? 3 /uL 12/07/2022 3:03 AM CDT [facility] Immature Granulocytes % 0.5 0.0 - 1.0 % 12/07/2022 3:03 AM CDT [facility] Immature Granulocytes Absolute 0.05 12/07/2022 3:03 AM CDT [facility] Blood BLOOD SPECIMEN / Unknown Venipuncture / Unknown 12/07/2022 2:28 AM CDT 12/07/2022 2:42 AM CDT Neville Hewitt III, MD LAB - HEMATOLOGY ORDERABLES [address] [address], [facility] [phone] * MAGNESIUM BLOOD (12/06/2022 3:10 AM CDT) Magnesium 2.0 1.6 - 2.6 mg/dL 12/06/2022 3:55 AM CDT [facility] Blood BLOOD SPECIMEN / Unknown Venipuncture / Unknown 12/06/2022 3:10 AM CDT 12/06/2022 3:22 AM CDT Neville Hewitt III, MD LAB - CHEMISTRY ORDERABLES [address] [address], [place] [phone] * (ABNORMAL) RENAL FUNCTION PANEL (12/06/2022 3:10 AM CDT) BUN 16 7 - 26 mg/dL 12/06/2022 3:54 AM [facility] Creatinine 0.38(L) 0.71 - 1.16 mg/dL 12/06/2022 3:54 AM [facility] Sodium 139 136 - 145 mmol/L 12/06/2022 3:54 AM [facility] Potassium 4.8(H) 3.5 - 4.5 mmol/L 12/06/2022 3:54 AM [facility] Chloride 105 98 - 107 mmol/L 12/06/2022 3:54 AM [facility] CO2 26 22 - 29 mmol/L 12/06/2022 3:54 AM [facility] Glucose 117(H) 70 - 115 mg/dL 12/06/2022 3:54 AM [facility] Albumin 2.3(L) 3.4 - 5.0 g/dL 12/06/2022 3:54 AM [facility] Calcium 10.2 8.4 - 10.2 mg/dL 12/06/2022 3:54 AM [facility] Phosphorus 2.8 2.8 - 5.1 mg/dL 12/06/2022 3:54 AM [facility] Anion Gap 13 8 - 18 12/06/2022 3:54 AM [facility] BUN/Creatinine Ratio 42(H) 7 - 23 12/06/2022 3:54 AM [facility] Osmolality Calculated 290 270 - 300 mOsm/kg 12/06/2022 3:54 AM [facility] eGFR by CKD-EPI >90 >=90 mL/min/1.7 3 m2 12/06/2022 3:54 AM [facility] Blood BLOOD SPECIMEN / Unknown Venipuncture / Unknown 12/06/2022 3:10 AM T 12/06/2022 3:22 AM [facility] Neville Hewitt III, MD LAB - CHEMISTRY ORDERABLES [facility] [address] [place] [address], [facility] [phone] * (ABNORMAL) CBC W AUTO DIFFERENTIAL (12/06/2022 3:10 AM [facility] WBC 7.3 3.5 - 10.5 10? 3 /uL 12/06/2022 3:29 AM [facility] RBC 3.78(L) 4.30 - 5.70 10? 6 /uL 12/06/2022 3:29 AM [facility] Hemoglobin 11.1(L) 12.0 - 17.6 g/dL 12/06/2022 3:29 AM [facility] Hematocrit 34.7(L) 35.2 - 51.7 % 12/06/2022 3:29 AM [facility] MCV 91.8 80.7 - 98.3 fL 12/06/2022 3:29 AM [facility] MCH 29.4 26.7 - 34.0 pg 12/06/2022 3:29 AM [facility] MCHC 32.0 30.8 - 35.9 g/dL 12/06/2022 3:29 AM [facility] RDW-SD 54.2(H) 36.0 - 50.0 fL 12/06/2022 3:29 AM [facility] RDW-CV 16.0(H) 11.2 - 14.8 % 12/06/2022 3:29 AM [facility] Platelet Count 435(H) 150 - 400 10? 3 /uL 12/06/2022 3:29 AM [facility] MPV 10.5 9.4 - 12.9 fL 12/06/2022 3:29 AM [facility] nRBC Absolute 0.00 0 10? 3 /uL 12/06/2022 3:29 AM [facility] nRBC Auto 0.0 0 /100 WBC 12/06/2022 3:29 AM [facility] Neutrophils % 53.3 35.0 - 70.0 % 12/06/2022 3:29 AM [facility] Lymphocytes % 29.4 20.0 - 43.0 % 12/06/2022 3:29 AM [facility] Monocytes % 10.2 5.0 - 13.0 % 12/06/2022 3:29 AM [facility] Eosinophils % 6.2(H) 0.0 - 6.0 % 12/06/2022 3:29 AM T [facility] Basophil % 0.5 0.0 - 2.0 % 12/06/2022 3:29 AM T [facility] Neutrophils Absolute 3.89 1.60 - 7.00 10? 3 /uL 12/06/2022 3:29 AM T [facility] Lymphocyte Absolute 2.14 1.10 - 3.90 10? 3 /uL 12/06/2022 3:29 AM T [facility] Monocytes Absolute 0.74 0.26 - 1.07 10? 3 /uL 12/06/2022 3:29 AM [facility] Eosinophils Absolute 0.45 0.00 - 0.47 10? 3 /uL 12/06/2022 3:29 AM T [facility] Basophils Absolute 0.04 0.00 - 0.08 10? 3 /uL 12/06/2022 3:29 AM [facility] Immature Granulocytes % 0.4 0.0 - 1.0 % 12/06/2022 3:29 AM [facility] Immature Granulocytes Absolute 0.03 12/06/2022 3:29 AM [facility] Blood BLOOD SPECIMEN / Unknown Venipuncture / Unknown 12/06/2022 3:10 AM CDT 12/06/2022 3:22 AM CDT Neville Hewitt III, MD LAB - HEMATOLOGY ORDERABLES [facility] [address] [place] [id number], [facility] [phone] * MAGNESIUM BLOOD (12/05/2022 3:18 AM CDT) Magnesium 1.9 1.6 - 2.6 mg/dL 12/05/2022 3:58 AM T [facility] Blood BLOOD SPECIMEN / Unknown Venipuncture / Unknown 12/05/2022 3:18 AM CDT 12/05/2022 3:28 AM CDT Neville Hewitt III, MD LAB - CHEMISTRY ORDERABLES [facility] [address] [place] [address], [facility] [phone] * (ABNORMAL) RENAL FUNCTION PANEL (12/05/2022 3:18 AM CDT) BUN 16 7 - 26 mg/dL 12/05/2022 3:58 AM [facility] Creatinine 0.43(L) 0.71 - 1.16 mg/dL 12/05/2022 3:58 AM [facility] Sodium 137 136 - 145 mmol/L 12/05/2022 3:58 AM [facility] Potassium 4.5 3.5 - 4.5 mmol/L 12/05/2022 3:58 AM [facility] Chloride 105 98 - 107 mmol/L 12/05/2022 3:58 AM [facility] CO2 26 22 - 29 mmol/L 12/05/2022 3:58 AM [facility] Glucose 131(H) 70 - 115 mg/dL 12/05/2022 3:58 AM [facility] Albumin 2.2(L) 3.4 - 5.0 g/dL 12/05/2022 3:58 AM [facility] Calcium 10.3(H) 8.4 - 10.2 mg/dL 12/05/2022 3:58 AM [facility] Phosphorus 2.7(L) 2.8 - 5.1 mg/dL 12/05/2022 3:58 AM [facility] Anion Gap 11 8 - 18 12/05/2022 3:58 AM [facility] BUN/Creatinine Ratio 37(H) 7 - 23 12/05/2022 3:58 AM [facility] Osmolality Calculated 287 270 - 300 mOsm/kg 12/05/2022 3:58 AM [facility] eGFR by CKD-EPI >90 >=90 mL/min/1.7 3 m2 12/05/2022 3:58 AM [facility] Blood BLOOD SPECIMEN / Unknown Venipuncture / Unknown 12/05/2022 3:18 AM CDT 12/05/2022 3:28 AM CDT Neville Hewitt III, MD LAB - CHEMISTRY ORDERABLES [facility] [address] [place] [address], [facility] [phone] * (ABNORMAL) CBC W AUTO DIFFERENTIAL (12/05/2022 3:18 AM CDT) WBC 8.5 3.5 - 10.5 10? 3 /uL 12/05/2022 3:33 AM [facility] RBC 3.54(L) 4.30 - 5.70 10? 6 /uL 12/05/2022 3:33 AM [facility] Hemoglobin 10.6(L) 12.0 - 17.6 g/dL 12/05/2022 3:33 AM [facility] Hematocrit 32.3(L) 35.2 - 51.7 % 12/05/2022 3:33 AM [facility] MCV 91.2 80.7 - 98.3 fL 12/05/2022 3:33 AM [facility] MCH 29.9 26.7 - 34.0 pg 12/05/2022 3:33 AM [facility] MCHC 32.8 30.8 - 35.9 g/dL 12/05/2022 3:33 AM [facility] RDW-SD 55.8(H) 36.0 - 50.0 fL 12/05/2022 3:33 AM [facility] RDW-CV 16.6(H) 11.2 - 14.8 % 12/05/2022 3:33 AM [facility] Platelet Count 407(H) 150 - 400 10? 3 /uL 12/05/2022 3:33 AM [facility] MPV 10.5 9.4 - 12.9 fL 12/05/2022 3:33 AM [facility] nRBC Absolute 0.00 0 10? 3 /uL 12/05/2022 3:33 AM [facility] nRBC Auto 0.0 0 /100 WBC 12/05/2022 3:33 AM [facility] Neutrophils % 58.9 35.0 - 70.0 % 12/05/2022 3:33 AM [facility] Lymphocytes % 25.9 20.0 - 43.0 % 12/05/2022 3:33 AM [facility] Monocytes % 9.5 5.0 - 13.0 % 12/05/2022 3:33 AM [facility] Eosinophils % 4.8 0.0 - 6.0 % 12/05/2022 3:33 AM [facility] Basophil % 0.5 0.0 - 2.0 % 12/05/2022 3:33 AM [facility] Neutrophils Absolute 5.03 1.60 - 7.00 10? 3 /uL 12/05/2022 3:33 AM [facility] Lymphocyte Absolute 2.21 1.10 - 3.90 10? 3 /uL 12/05/2022 3:33 AM [facility] Monocytes Absolute 0.81 0.26 - 1.07 10? 3 /uL 12/05/2022 3:33 AM [facility] Eosinophils Absolute 0.41 0.00 - 0.47 10? 3 /uL 12/05/2022 3:33 AM [facility] Basophils Absolute 0.04 0.00 - 0.08 10? 3 /uL 12/05/2022 3:33 AM [facility] Immature Granulocytes % 0.4 0.0 - 1.0 % 12/05/2022 3:33 AM [facility] Immature Granulocytes Absolute 0.03 12/05/2022 3:33 AM [facility] Blood BLOOD SPECIMEN / Unknown Venipuncture / Unknown 12/05/2022 3:18 AM CDT 12/05/2022 3:26 AM T Neville Hewitt III, MD LAB - HEMATOLOGY ORDERABLES [facility] [address] [place] [address], [facility] [phone] * MAGNESIUM BLOOD (12/04/2022 3:27 AM CDT) Magnesium 2.0 1.6 - 2.6 mg/dL 12/04/2022 4:18 AM [facility] Blood BLOOD SPECIMEN / Unknown Venipuncture / Unknown 12/04/2022 3:27 AM CDT 12/04/2022 3:47 AM CDT Neville Hewitt III, MD LAB - CHEMISTRY ORDERABLES [facility] [address] [place] [address], [facility] [phone] * (ABNORMAL) RENAL FUNCTION PANEL (12/04/2022 3:27 AM CDT) BUN 18 7 - 26 mg/dL 12/04/2022 4:18 AM [facility] Creatinine 0.52(L) 0.71 - 1.16 mg/dL 12/04/2022 4:18 AM [facility] Sodium 141 136 - 145 mmol/L 12/04/2022 4:18 AM [facility] Potassium 4.9(H) 3.5 - 4.5 mmol/L 12/04/2022 4:18 AM [facility] Chloride 108(H) 98 - 107 mmol/L 12/04/2022 4:18 AM [facility] CO2 27 22 - 29 mmol/L 12/04/2022 4:18 AM [facility] Glucose 116(H) 70 - 115 mg/dL 12/04/2022 4:18 AM [facility] Albumin 2.2(L) 3.4 - 5.0 g/dL 12/04/2022 4:18 AM [facility] Calcium 10.2 8.4 - 10.2 mg/dL 12/04/2022 4:18 AM [facility] Phosphorus 2.8 2.8 - 5.1 mg/dL 12/04/2022 4:18 AM [facility] Anion Gap 11 8 - 18 12/04/2022 4:18 AM [facility] BUN/Creatinine Ratio 35(H) 7 - 23 12/04/2022 4:18 AM [facility] Osmolality Calculated 295 270 - 300 mOsm/kg 12/04/2022 4:18 AM [facility] eGFR by CKD-EPI >90 >=90 mL/min/1.7 3 m2 12/04/2022 4:18 AM [facility] Blood BLOOD SPECIMEN / Unknown Venipuncture / Unknown 12/04/2022 3:27 AM CDT 12/04/2022 3:47 AM CDT Neville Hewitt III, MD LAB - CHEMISTRY ORDERABLES [facility] [address] [place] [address], [facility] [phone] * (ABNORMAL) CBC W AUTO DIFFERENTIAL (12/04/2022 3:27 AM CDT) WBC 8.6 3.5 - 10.5 10? 3 /uL 12/04/2022 3:57 AM [facility] RBC 3.34(L) 4.30 - 5.70 10? 6 /uL 12/04/2022 3:57 AM [facility] Hemoglobin 10.0(L) 12.0 - 17.6 g/dL 12/04/2022 3:57 AM [facility] Hematocrit 31.2(L) 35.2 - 51.7 % 12/04/2022 3:57 AM [facility] MCV 93.4 80.7 - 98.3 fL 12/04/2022 3:57 AM [facility] MCH 29.9 26.7 - 34.0 pg 12/04/2022 3:57 AM [facility] MCHC 32.1 30.8 - 35.9 g/dL 12/04/2022 3:57 AM [facility] RDW-SD 58.2(H) 36.0 - 50.0 fL 12/04/2022 3:57 AM [facility] RDW-CV 17.3(H) 11.2 - 14.8 % 12/04/2022 3:57 AM [facility] Platelet Count 392 150 - 400 10? 3 /uL 12/04/2022 3:57 AM [facility] MPV 10.9 9.4 - 12.9 fL 12/04/2022 3:57 AM [facility] nRBC Absolute 0.00 0 10? 3 /uL 12/04/2022 3:57 AM [facility] nRBC Auto 0.0 0 /100 WBC 12/04/2022 3:57 AM [facility] Neutrophils % 60.1 35.0 - 70.0 % 12/04/2022 3:57 AM [facility] Lymphocytes % 23.8 20.0 - 43.0 % 12/04/2022 3:57 AM [facility] Monocytes % 11.9 5.0 - 13.0 % 12/04/2022 3:57 AM [facility] Eosinophils % 3.6 0.0 - 6.0 % 12/04/2022 3:57 AM [facility] Basophil % 0.3 0.0 - 2.0 % 12/04/2022 3:57 AM [facility] Neutrophils Absolute 5.15 1.60 - 7.00 10? 3 /uL 12/04/2022 3:57 AM [facility] Lymphocyte Absolute 2.04 1.10 - 3.90 10? 3 /uL 12/04/2022 3:57 AM [facility] Monocytes Absolute 1.02 0.26 - 1.07 10? 3 /uL 12/04/2022 3:57 AM [facility] Eosinophils Absolute 0.31 0.00 - 0.47 10? 3 /uL 12/04/2022 3:57 AM [facility] Basophils Absolute 0.03 0.00 - 0.08 10? 3 /uL 12/04/2022 3:57 AM [facility] Immature Granulocytes % 0.3 0.0 - 1.0 % 12/04/2022 3:57 AM [facility] Immature Granulocytes Absolute 0.03 12/04/2022 3:57 AM [facility] Blood BLOOD SPECIMEN / Unknown Venipuncture / Unknown 12/04/2022 3:27 AM CDT 12/04/2022 3:46 AM CDT Neville Hewitt III, MD LAB - HEMATOLOGY ORDERABLES [address] [address], [place] [phone] * (ABNORMAL) GLUCOSE - POINT OF CARE (12/03/2022 3:58 PM CDT) Glucose WB/POC 140(H) 70 - 115 mg/dL 12/03/2022 11:54 PM CDT [facility] Specimen Type Cap Fingerstick 2022 11:54 PM CDT [facility] Blood BLOOD SPECIMEN / Unknown 12/03/2022 3:58 PM CDT 12/03/2022 11:54 PM CDT Ilir Mckenzie MD LAB - POINT OF CARE ORDERABLES Performing Organization Address City/[facility]/ZIP Co de Phone Number [address] [address], [place] [phone] * GLUCOSE - POINT OF CARE (12/03/2022 11:54 AM CDT) Glucose WB/POC 99 70 - 115 mg/dL 12/03/2022 11:56 AM CDT [facility] Specimen Type Cap Fingerstick 2022 11:56 AM CDT [facility] Blood BLOOD SPECIMEN / Unknown 12/03/2022 11:54 AM CDT 12/03/2022 11:56 AM CDT Ilir Mckenzie MD LAB - POINT OF CARE ORDERABLES [address] [address], [place] [phone] * GLUCOSE - POINT OF CARE (12/03/2022 7:58 AM CDT) Glucose WB/POC 97 70 - 115 mg/dL 12/03/2022 8:03 AM CDT [facility] Specimen Type Cap Fingerstick 2022 8:03 AM CDT [facility] Blood BLOOD SPECIMEN / Unknown 12/03/2022 7:58 AM CDT 12/03/2022 8:03 AM CDT Ilir Mckenzie MD LAB - POINT OF CARE ORDERABLES [address] [address], [place] [phone] * GLUCOSE - POINT OF CARE (12/03/2022 4:01 AM CDT) Glucose WB/POC 103 70 - 115 mg/dL 12/03/2022 8:03 AM CDT [facility] Specimen Type Cap Fingerstick 2022 8:03 AM CDT [facility] Blood BLOOD SPECIMEN / Unknown 12/03/2022 4:01 AM CDT 12/03/2022 8:03 AM CDT Ilir Mckenzie MD LAB - POINT OF CARE ORDERABLES Performing Organization Address City/[facility]/ZIP Co de Phone Number [address] [address], [place] [phone] * MAGNESIUM BLOOD (12/03/2022 2:29 AM CDT) Magnesium 2.1 1.6 - 2.6 mg/dL 12/03/2022 3:08 AM CDT [facility] Blood BLOOD SPECIMEN / Unknown Venipuncture / Unknown 12/03/2022 2:29 AM CDT 12/03/2022 2:36 AM CDT Neville Hewitt III, MD LAB - CHEMISTRY ORDERABLES Performing Organization Address City/[facility]/ZIP Co de Phone Number [address] [address], [place] [phone] * (ABNORMAL) RENAL FUNCTION PANEL (12/03/2022 2:29 AM CDT) BUN 18 7 - 26 mg/dL 12/03/2022 3:08 AM [facility] Creatinine 0.50(L) 0.71 - 1.16 mg/dL 12/03/2022 3:08 AM [facility] Sodium 143 136 - 145 mmol/L 12/03/2022 3:08 AM [facility] Potassium 4.4 3.5 - 4.5 mmol/L 12/03/2022 3:08 AM [facility] Chloride 111(H) 98 - 107 mmol/L 12/03/2022 3:08 AM [facility] CO2 22 22 - 29 mmol/L 12/03/2022 3:08 AM [facility] Glucose 111 70 - 115 mg/dL 12/03/2022 3:08 AM [facility] Albumin 2.1(L) 3.4 - 5.0 g/dL 12/03/2022 3:08 AM [facility] Calcium 9.5 8.4 - 10.2 mg/dL 12/03/2022 3:08 AM [facility] Phosphorus 2.6(L) 2.8 - 5.1 mg/dL 12/03/2022 3:08 AM [facility] Anion Gap 14 8 - 18 12/03/2022 3:08 AM [facility] BUN/Creatinine Ratio 36(H) 7 - 23 12/03/2022 3:08 AM [facility] Osmolality Calculated 299 270 - 300 mOsm/kg 12/03/2022 3:08 AM [facility] eGFR by CKD-EPI >90 >=90 mL/min/1.7 3 m2 12/03/2022 3:08 AM [facility] Blood BLOOD SPECIMEN / Unknown Venipuncture / Unknown 12/03/2022 2:29 AM CDT 12/03/2022 2:36 AM T Neville Hewitt III, MD LAB - CHEMISTRY ORDERABLES [facility] [address] [place] [address], [facility] [phone] * (ABNORMAL) CBC W AUTO DIFFERENTIAL (12/03/2022 2:29 AM CDT) WBC 9.4 3.5 - 10.5 10? 3 /uL 12/03/2022 2:40 AM T [facility] RBC 3.12(L) 4.30 - 5.70 10? 6 /uL 12/03/2022 2:40 AM [facility] Hemoglobin 9.3(L) 12.0 - 17.6 g/dL 12/03/2022 2:40 AM [facility] Hematocrit 28.3(L) 35.2 - 51.7 % 12/03/2022 2:40 AM [facility] MCV 90.7 80.7 - 98.3 fL 12/03/2022 2:40 AM [facility] MCH 29.8 26.7 - 34.0 pg 12/03/2022 2:40 AM [facility] MCHC 32.9 30.8 - 35.9 g/dL 12/03/2022 2:40 AM [facility] RDW-SD 58.6(H) 36.0 - 50.0 fL 12/03/2022 2:40 AM [facility] RDW-CV 17.6(H) 11.2 - 14.8 % 12/03/2022 2:40 AM [facility] Platelet Count 330 150 - 400 10? 3 /uL 12/03/2022 2:40 AM [facility] MPV 10.8 9.4 - 12.9 fL 12/03/2022 2:40 AM [facility] nRBC Absolute 0.00 0 10? 3 /uL 12/03/2022 2:40 AM [facility] nRBC Auto 0.0 0 /100 WBC 12/03/2022 2:40 AM [facility] Neutrophils % 67.1 35.0 - 70.0 % 12/03/2022 2:40 AM [facility] Lymphocytes % 18.3(L) 20.0 - 43.0 % 12/03/2022 2:40 AM [facility] Monocytes % 10.4 5.0 - 13.0 % 12/03/2022 2:40 AM [facility] Eosinophils % 3.6 0.0 - 6.0 % 12/03/2022 2:40 AM [facility] Basophil % 0.2 0.0 - 2.0 % 12/03/2022 2:40 AM [facility] Neutrophils Absolute 6.30 1.60 - 7.00 10? 3 /uL 12/03/2022 2:40 AM [facility] Lymphocyte Absolute 1.72 1.10 - 3.90 10? 3 /uL 12/03/2022 2:40 AM [facility] Monocytes Absolute 0.98 0.26 - 1.07 10? 3 /uL 12/03/2022 2:40 AM [facility] Eosinophils Absolute 0.34 0.00 - 0.47 10? 3 /uL 12/03/2022 2:40 AM [facility] Basophils Absolute 0.02 0.00 - 0.08 10? 3 /uL 12/03/2022 2:40 AM [facility] Immature Granulocytes % 0.4 0.0 - 1.0 % 12/03/2022 2:40 AM [facility] Immature Granulocytes Absolute 0.04 12/03/2022 2:40 AM [facility] Blood BLOOD SPECIMEN / Unknown Venipuncture / Unknown 12/03/2022 2:29 AM CDT 12/03/2022 2:36 AM CDT Neville Hewitt III, MD LAB - HEMATOLOGY ORDERABLES [address] [address], [facility] [phone] * GLUCOSE - POINT OF CARE (12/02/2022 11:36 PM CDT) [facility] Glucose WB/POC 100 70 - 115 mg/dL 12/03/2022 8:03 AM [facility] Specimen Type Cap Fingerstick 2022 8:03 AM CDT [facility] Blood BLOOD SPECIMEN / Unknown 12/02/2022 11:36 PM CDT 12/03/2022 8:03 AM CDT Ilir Mckenzie MD LAB - POINT OF CARE ORDERABLES [facility] [address] [place] [phone], [place] [phone] * GLUCOSE - POINT OF CARE (12/02/2022 7:43 PM CDT) Glucose WB/POC 108 70 - 115 mg/dL 12/03/2022 8:03 AM CDT [facility] Specimen Type Cap Fingerstick 2022 8:03 AM CDT [facility] Blood BLOOD SPECIMEN / Unknown 12/02/2022 7:43 PM CDT 12/03/2022 8:03 AM CDT Ilir Mckenzie MD LAB - POINT OF CARE ORDERABLES [address] [address], [place] [phone] * GLUCOSE - POINT OF CARE (12/02/2022 4:21 PM CDT) Glucose WB/POC 96 70 - 115 mg/dL 12/03/2022 8:03 AM CDT [facility] Specimen Type Cap Fingerstick 2022 8:03 AM CDT [facility] Blood BLOOD SPECIMEN / Unknown 12/02/2022 4:21 PM CDT 12/03/2022 8:03 AM CDT Ilir Mckenzie MD LAB - POINT OF CARE ORDERABLES [facility] [address] [place] [address], [place] [phone] * (ABNORMAL) GLUCOSE - POINT OF CARE (12/02/2022 12:05 PM CDT) Glucose WB/POC 121(H) 70 - 115 mg/dL 12/02/2022 12:10 PM CDT [facility] Specimen Type Cap Fingerstick 2022 12:10 PM CDT [facility] Blood BLOOD SPECIMEN / Unknown 12/02/2022 12:05 PM CDT 12/02/2022 12:10 PM CDT Ilir Mckenzie MD LAB - POINT OF CARE ORDERABLES [address] [address], [place] [phone] * GLUCOSE - POINT OF CARE (12/02/2022 7:57 AM CDT) Glucose WB/POC 111 70 - 115 mg/dL 12/02/2022 12:10 PM CDT [facility] Specimen Type Cap Fingerstick 2022 12:10 PM CDT [facility] Blood BLOOD SPECIMEN / Unknown 12/02/2022 7:57 AM CDT 12/02/2022 12:10 PM CDT Ilir Mckenzie MD LAB - POINT OF CARE ORDERABLES Performing Organization Address City/[facility]/ZIP Co de Phone Number [address] [address], [place] [phone] * MAGNESIUM BLOOD (12/02/2022 3:56 AM CDT) Magnesium 1.9 1.6 - 2.6 mg/dL 12/02/2022 4:40 AM CDT [facility] Blood BLOOD SPECIMEN / Unknown Venipuncture / Unknown 12/02/2022 3:56 AM CDT 12/02/2022 4:06 AM CDT Neville Hewitt III, MD LAB - CHEMISTRY ORDERABLES [address] [address] [phone] * (ABNORMAL) RENAL FUNCTION PANEL (12/02/2022 3:56 AM T) BUN 14 7 - 26 mg/dL 12/02/2022 4:40 AM [facility] Creatinine 0.55(L) 0.71 - 1.16 mg/dL 12/02/2022 4:40 AM [facility] Sodium 140 136 - 145 mmol/L 12/02/2022 4:40 AM [facility] Potassium 4.3 3.5 - 4.5 mmol/L 12/02/2022 4:40 AM [facility] Chloride 109(H) 98 - 107 mmol/L 12/02/2022 4:40 AM [facility] CO2 25 22 - 29 mmol/L 12/02/2022 4:40 AM [facility] Glucose 105 70 - 115 mg/dL 12/02/2022 4:40 AM [facility] Albumin 2.2(L) 3.4 - 5.0 g/dL 12/02/2022 4:40 AM [facility] Calcium 9.9 8.4 - 10.2 mg/dL 12/02/2022 4:40 AM [facility] Phosphorus 3.0 2.8 - 5.1 mg/dL 12/02/2022 4:40 AM [facility] Anion Gap 10 8 - 18 12/02/2022 4:40 AM [facility] BUN/Creatinine Ratio 25(H) 7 - 23 12/02/2022 4:40 AM [facility] Osmolality Calculated 291 270 - 300 mOsm/kg 12/02/2022 4:40 AM [facility] eGFR by CKD-EPI >90 >=90 mL/min/1.7 3 m2 12/02/2022 4:40 AM [facility] Blood BLOOD SPECIMEN / Unknown Venipuncture / Unknown 12/02/2022 3:56 AM CDT 12/02/2022 4:06 AM T Neville Hewitt III, MD LAB - CHEMISTRY ORDERABLES [facility] [address] [place] [address], [facility] [phone] * (ABNORMAL) CBC W AUTO DIFFERENTIAL (12/02/2022 3:56 AM CDT) WBC 13.6(H) 3.5 - 10.5 10? 3 /uL 12/02/2022 4:32 AM [facility] RBC 3.22(L) 4.30 - 5.70 10? 6 /uL 12/02/2022 4:32 AM [facility] Hemoglobin 9.6(L) 12.0 - 17.6 g/dL 12/02/2022 4:32 AM [facility] Hematocrit 29.2(L) 35.2 - 51.7 % 12/02/2022 4:32 AM [facility] MCV 90.7 80.7 - 98.3 fL 12/02/2022 4:32 AM [facility] MCH 29.8 26.7 - 34.0 pg 12/02/2022 4:32 AM [facility] MCHC 32.9 30.8 - 35.9 g/dL 12/02/2022 4:32 AM [facility] RDW-SD 60.5(H) 36.0 - 50.0 fL 12/02/2022 4:32 AM [facility] RDW-CV 18.3(H) 11.2 - 14.8 % 12/02/2022 4:32 AM [facility] Platelet Count 338 150 - 400 10? 3 /uL 12/02/2022 4:32 AM [facility] MPV 11.5 9.4 - 12.9 fL 12/02/2022 4:32 AM [facility] nRBC Absolute 0.00 0 10? 3 /uL 12/02/2022 4:32 AM [facility] nRBC Auto 0.0 0 /100 WBC 12/02/2022 4:32 AM [facility] Neutrophils % 76.5(H) 35.0 - 70.0 % 12/02/2022 4:32 AM [facility] Lymphocytes % 11.7(L) 20.0 - 43.0 % 12/02/2022 4:32 AM [facility] Monocytes % 9.3 5.0 - 13.0 % 12/02/2022 4:32 AM [facility] Eosinophils % 1.8 0.0 - 6.0 % 12/02/2022 4:32 AM [facility] Basophil % 0.2 0.0 - 2.0 % 12/02/2022 4:32 AM [facility] Neutrophils Absolute 10.38(H) 1.60 - 7.00 10? 3 /uL 12/02/2022 4:32 AM [facility] Lymphocyte Absolute 1.59 1.10 - 3.90 10? 3 /uL 12/02/2022 4:32 AM [facility] Monocytes Absolute 1.26(H) 0.26 - 1.07 10? 3 /uL 12/02/2022 4:32 AM [facility] Eosinophils Absolute 0.24 0.00 - 0.47 10? 3 /uL 12/02/2022 4:32 AM [facility] Basophils Absolute 0.03 0.00 - 0.08 10? 3 /uL 12/02/2022 4:32 AM [facility] Immature Granulocytes % 0.5 0.0 - 1.0 % 12/02/2022 4:32 AM [facility] Immature Granulocytes Absolute 0.07 12/02/2022 4:32 AM [facility] Blood BLOOD SPECIMEN / Unknown Venipuncture / Unknown 12/02/2022 3:56 AM CDT 12/02/2022 4:06 AM CDT Neville Hewitt III, MD LAB - HEMATOLOGY ORDERABLES [facility] [address] [place] [address], [facility] [phone] * GLUCOSE - POINT OF CARE (12/02/2022 3:55 AM CDT) [facility] Glucose WB/POC 103 70 - 115 mg/dL 12/02/2022 12:10 PM CDT [facility] Specimen Type Venous 12/02/2022 12:10 PM CDT [facility] Blood BLOOD SPECIMEN / Unknown 12/02/2022 3:55 AM CDT 12/02/2022 12:10 PM CDT Ilir Mckenzie MD LAB - POINT OF CARE ORDERABLES [address] [address], [place] [phone] * GLUCOSE - POINT OF CARE (12/01/2022 11:44 PM CDT) Glucose WB/POC 110 70 - 115 mg/dL 12/02/2022 12:10 PM CDT [facility] Specimen Type Cap Fingerstick 2022 12:10 PM CDT [facility] Blood BLOOD SPECIMEN / Unknown 12/01/2022 11:44 PM CDT 12/02/2022 12:10 PM CDT Ilir Mckenzie MD LAB - POINT OF CARE ORDERABLES Performing Organization Address City/[facility]/ZIP Co de Phone Number [address] [address], [place] [phone] * GLUCOSE - POINT OF CARE (12/01/2022 7:42 PM CDT) Glucose WB/POC 108 70 - 115 mg/dL 12/02/2022 12:10 PM CDT [facility] Specimen Type Cap Fingerstick 2022 12:10 PM CDT [facility] Blood BLOOD SPECIMEN / Unknown 12/01/2022 7:42 PM CDT 12/02/2022 12:10 PM CDT Ilir Mckenzie MD LAB - POINT OF CARE ORDERABLES [address] [address], [place] [phone] * GLUCOSE - POINT OF CARE (12/01/2022 3:55 PM CDT) Glucose WB/POC 111 70 - 115 mg/dL 12/01/2022 4:00 PM CDT [facility] Specimen Type Cap Fingerstick 2022 4:00 PM CDT [facility] Blood BLOOD SPECIMEN / Unknown 12/01/2022 3:55 PM CDT 12/01/2022 4:00 PM CDT Ilir Mckenzie MD LAB - POINT OF CARE ORDERABLES [address] [address], [place] [phone] * (ABNORMAL) GLUCOSE - POINT OF CARE (12/01/2022 1:53 PM CDT) Glucose WB/POC 118(H) 70 - 115 mg/dL 12/01/2022 4:00 PM CDT [facility] Specimen Type Cap Fingerstick 2022 4:00 PM CDT [facility] Blood BLOOD SPECIMEN / Unknown 12/01/2022 1:53 PM CDT 12/01/2022 4:00 PM CDT Ilir Mckenzie MD LAB - POINT OF CARE ORDERABLES [address] [address], [place] [phone] * (ABNORMAL) GLUCOSE - POINT OF CARE (12/01/2022 7:10 AM CDT) Glucose WB/POC 116(H) 70 - 115 mg/dL 12/01/2022 4:00 PM CDT [facility] Specimen Type Cap Fingerstick 2022 4:00 PM CDT [facility] Blood BLOOD SPECIMEN / Unknown 12/01/2022 7:10 AM CDT 12/01/2022 4:00 PM CDT Ilir Mckenzie MD LAB - POINT OF CARE ORDERABLES [address] [address], [place] [phone] * (ABNORMAL) GLUCOSE - POINT OF CARE (12/01/2022 3:38 AM CDT) Glucose WB/POC 126(H) 70 - 115 mg/dL 12/01/2022 4:00 PM CDT [facility] Specimen Type Venous 12/01/2022 4:00 PM CDT [facility] Blood BLOOD SPECIMEN / Unknown 12/01/2022 3:38 AM CDT 12/01/2022 4:00 PM CDT Ilir Mckenzie MD LAB - POINT OF CARE ORDERABLES Performing Organization Address City/[facility]/ZIP Co de Phone Number [address] [address], [place] [phone] * MAGNESIUM BLOOD (12/01/2022 3:38 AM CDT) Pathologist [facility] Magnesium 2.0 1.6 - 2.6 mg/dL 12/01/2022 4:36 AM CDT [facility] Blood BLOOD SPECIMEN / Unknown Venipuncture / Unknown 12/01/2022 3:38 AM CDT 12/01/2022 4:02 AM CDT Neville Hewitt III, MD LAB - CHEMISTRY ORDERABLES [address] [address], [place] [phone] * (ABNORMAL) RENAL FUNCTION PANEL (12/01/2022 3:38 AM CDT) BUN 10 7 - 26 mg/dL 12/01/2022 4:36 AM CDT [facility] Creatinine 0.53(L) 0.71 - 1.16 mg/dL 12/01/2022 4:36 AM CDT [facility] Sodium 139 136 - 145 mmol/L 12/01/2022 4:36 AM [facility] Potassium 3.8 3.5 - 4.5 mmol/L 12/01/2022 4:36 AM [facility] Chloride 109(H) 98 - 107 mmol/L 12/01/2022 4:36 AM [facility] CO2 23 22 - 29 mmol/L 12/01/2022 4:36 AM [facility] Glucose 124(H) 70 - 115 mg/dL 12/01/2022 4:36 AM [facility] Albumin 2.0(L) 3.4 - 5.0 g/dL 12/01/2022 4:36 AM [facility] Calcium 9.3 8.4 - 10.2 mg/dL 12/01/2022 4:36 AM [facility] Phosphorus 2.7(L) 2.8 - 5.1 mg/dL 12/01/2022 4:36 AM [facility] Anion Gap 11 8 - 18 12/01/2022 4:36 AM [facility] BUN/Creatinine Ratio 19 7 - 23 12/01/2022 4:36 AM [facility] Osmolality Calculated 288 270 - 300 mOsm/kg 12/01/2022 4:36 AM [facility] eGFR by CKD-EPI >90 >=90 mL/min/1.7 3 m2 12/01/2022 4:36 AM [facility] Blood BLOOD SPECIMEN / Unknown Venipuncture / Unknown 12/01/2022 3:38 AM CDT 12/01/2022 4:02 AM T Neville Hewitt III, MD LAB - CHEMISTRY ORDERABLES [facility] [address] [place] [address], [facility] [phone] * (ABNORMAL) CBC W AUTO DIFFERENTIAL (12/01/2022 3:38 AM CDT) WBC 10.9(H) 3.5 - 10.5 10? 3 /uL 12/01/2022 4:07 AM [facility] RBC 3.17(L) 4.30 - 5.70 10? 6 /uL 12/01/2022 4:07 AM [facility] Hemoglobin 9.4(L) 12.0 - 17.6 g/dL 12/01/2022 4:07 AM [facility] Hematocrit 28.4(L) 35.2 - 51.7 % 12/01/2022 4:07 AM [facility] MCV 89.6 80.7 - 98.3 fL 12/01/2022 4:07 AM [facility] MCH 29.7 26.7 - 34.0 pg 12/01/2022 4:07 AM [facility] MCHC 33.1 30.8 - 35.9 g/dL 12/01/2022 4:07 AM [facility] RDW-SD 58.7(H) 36.0 - 50.0 fL 12/01/2022 4:07 AM [facility] RDW-CV 17.8(H) 11.2 - 14.8 % 12/01/2022 4:07 AM [facility] Platelet Count 259 150 - 400 10? 3 /uL 12/01/2022 4:07 AM [facility] MPV 12.2 9.4 - 12.9 fL 12/01/2022 4:07 AM [facility] nRBC Absolute 0.00 0 10? 3 /uL 12/01/2022 4:07 AM [facility] nRBC Auto 0.0 0 /100 WBC 12/01/2022 4:07 AM [facility] Neutrophils % 64.5 35.0 - 70.0 % 12/01/2022 4:07 AM [facility] Lymphocytes % 19.3(L) 20.0 - 43.0 % 12/01/2022 4:07 AM [facility] Monocytes % 12.8 5.0 - 13.0 % 12/01/2022 4:07 AM [facility] Eosinophils % 2.7 0.0 - 6.0 % 12/01/2022 4:07 AM [facility] Basophil % 0.3 0.0 - 2.0 % 12/01/2022 4:07 AM [facility] Neutrophils Absolute 7.01(H) 1.60 - 7.00 10? 3 /uL 12/01/2022 4:07 AM [facility] Lymphocyte Absolute 2.09 1.10 - 3.90 10? 3 /uL 12/01/2022 4:07 AM [facility] [facility] Monocytes Absolute 1.39(H) 0.26 - 1.07 10? 3 /uL 12/01/2022 4:07 AM [facility] Eosinophils Absolute 0.29 0.00 - 0.47 10? 3 /uL 12/01/2022 4:07 AM [facility] Basophils Absolute 0.03 0.00 - 0.08 10? 3 /uL 12/01/2022 4:07 AM [facility] Immature Granulocytes % 0.4 0.0 - 1.0 % 12/01/2022 4:07 AM [facility] Immature Granulocytes Absolute 0.04 12/01/2022 4:07 AM [facility] Blood BLOOD SPECIMEN / Unknown Venipuncture / Unknown 12/01/2022 3:38 AM CDT 12/01/2022 4:02 AM CDT Neville Hewitt III, MD LAB - HEMATOLOGY ORDERABLES Performing Organization Address [facility]/State/ZIP Co de Phone Number [facility] [address] [place] [address], [facility] [phone] * TRANSFUSE RED BLOOD CELL LEUKOREDUCED UNIT(S) (12/01/2022 2:23 AM CDT) Ilir Mckenzie MD NURSING - BLOOD PROD TRANSFUSION * TRANSFUSE RED BLOOD CELL LEUKOREDUCED UNIT(S), 1 Units (12/01/2022 2:23 AM CDT) Ilir Mckenzie MD NURSING - BLOOD PROD TRANSFUSION * (ABNORMAL) GLUCOSE - POINT OF CARE (11/30/2022 11:26 PM CDT) Glucose WB/POC 125(H) 70 - 115 mg/dL 11/30/2022 11:26 PM CDT [facility] Specimen Type Cap Fingerstick 2022 11:26 PM CDT [facility] Blood BLOOD SPECIMEN / Unknown 11/30/2022 11:26 PM CDT 11/30/2022 11:26 PM CDT Ilir Mckenzie MD LAB - POINT OF CARE ORDERABLES Performing Organization Address [facility]/ZIP Co de Phone Number [address] [address], [facility] [phone] * PREPARE (CROSSMATCH) RBC UNIT(S), 1 Units (11/30/2022 10:51 PM CDT) Unit Description AS1 LR PRBC IRR [facility] B[facility]OD [facility] LAB Unit ABO O [facility] Unit Rh POS [facility] Product Number R04 [facility] B LOOD BANK LAB Unit Donor # [id number] [facility] Unit Status transfused [facility] BLO OD BANK LAB Product Code [id number] [facility] BLO OD BANK LAB Blood Type Barcode 5100 [facility] LAB Expiration Date [id number] S BLOOD BANK LAB Blood Bank BLOOD SPECIMEN / Unknown 11/30/2022 5:03 PM CDT Ilir Mckenzie MD LAB - BLOOD BANK ORD ERABLES Performing Organization Address [facility] [[email or web address]] Co de Phone Number [facility]OD [facility] LAB [address] [place] [address], [facility] [phone] * (ABNORMAL) GLUCOSE - POINT OF CARE (11/30/2022 7:56 PM CDT) Glucose WB/POC 128(H) 70 - 115 mg/dL 11/30/2022 11:22 PM CDT [facility] Specimen Type Cap Fingerstick 2022 11:22 PM CDT [facility] Blood BLOOD SPECIMEN / Unknown 11/30/2022 7:56 PM CDT 11/30/2022 11:22 PM CDT Ilir Mckenzie MD LAB - POINT OF CARE ORDERABLES Performing Organization Address City/[facility]/ZIP Co de Phone Number [facility] [address] [place] [address], [place] [phone] * TYPE + SCREEN PANEL (11/30/2022 4:57 PM CDT) [facility] Antibody Screen NEG 6:03 PM CDT [facility] B[facility]OD [facility] LAB ABO Rh O POS 11/30/2022 6:03 PM CDT [facility] Blood Bank BLOOD SPECIMEN / Unknown Venipuncture / Unknown 11/30/2022 4:57 PM CDT 11/30/2022 5:03 PM CDT Ilir Mckenzie MD LAB - BLOOD BANK ORD ERABLES Performing Organization Address [facility]/ZIP Co de Phone Number [facility] [address] [place] [phone], [place] [phone] * (ABNORMAL) GLUCOSE - POINT OF CARE (11/30/2022 3:08 PM CDT) [facility] Glucose WB/POC 139(H) 70 - 115 mg/dL 11/30/2022 3:13 PM CDT [facility] Specimen Type Cap Fingerstick 2022 3:13 PM CDT [facility] Blood BLOOD SPECIMEN / Unknown 11/30/2022 3:08 PM CDT 11/30/2022 3:13 PM CDT Ilir Mckenzie MD LAB - POINT OF CARE ORDERABLES [facility] [address] [place] [address], [place] [phone] * VANCOMYCIN LEVEL TROUGH (11/30/2022 3:08 PM CDT) [facility] Vancomycin Trough 13.1 10.0 - 20.0 ug/mL 11/30/2022 3:53 PM CDT [facility] Blood BLOOD SPECIMEN / Unknown Venipuncture / Unknown 11/30/2022 3:08 PM CDT 11/30/2022 3:19 PM CDT Narrative [facility] - 11/30/2022 3:53 PM CDT See institution protocol. kC Thorne MD LAB - CHEMISTRY OR DERABLES [facility] [address] [place] [address], [place] [phone] * (ABNORMAL) GLUCOSE - POINT OF CARE (11/30/2022 1:24 PM CDT) Glucose WB/POC 120(H) 70 - 115 mg/dL 11/30/2022 2:58 PM CDT [facility] Specimen Type Cap Fingerstick 2022 2:58 PM CDT [facility] Blood BLOOD SPECIMEN / Unknown 11/30/2022 1:24 PM CDT 11/30/2022 2:57 PM CDT Ilir Mckenzie MD LAB - POINT OF CARE ORDERABLES Performing Organization Address City/[facility]/ZIP Co de Phone Number [address] [address], [place] [phone] * (ABNORMAL) GLUCOSE - POINT OF CARE (11/30/2022 9:44 AM CDT) Glucose WB/POC 126(H) 70 - 115 mg/dL 11/30/2022 9:49 AM CDT [facility] Specimen Type Cap Fingerstick 2022 9:49 AM CDT [facility] Blood BLOOD SPECIMEN / Unknown 11/30/2022 9:44 AM CDT 11/30/2022 9:49 AM CDT Ilir Mckenzie MD LAB - POINT OF CARE ORDERABLES [address] [address], [place] [phone] * (ABNORMAL) VANCOMYCIN LEVEL PEAK (11/30/2022 6:17 AM CDT) [facility] Vancomycin Peak 24.9(L) 25.0 - 40.0 ug/mL 11/30/2022 7:27 AM CDT [facility] Blood BLOOD SPECIMEN / Unknown Venipuncture / Unknown 11/30/2022 6:17 AM CDT 11/30/2022 6:20 AM CDT Narrative [facility] - 11/30/2022 7:27 AM CDT See institution protocol. Data does not support the use of vancomycin peak concentration for efficacy. Ck Thorne MD LAB - CHEMISTRY OR DERABLES [address] [address], [facility] [phone] * MAGNESIUM BLOOD (11/30/2022 3:20 AM CDT) [facility] Magnesium 1.9 1.6 - 2.6 mg/dL 11/30/2022 3:59 AM CDT [facility] Blood BLOOD SPECIMEN / Unknown Venipuncture / Unknown 11/30/2022 3:20 AM CDT 11/30/2022 3:24 AM CDT Neville Hewitt III, MD LAB - CHEMISTRY ORDERABLES Performing Organization Address City/[facility]/ZIP Co de Phone Number [address] [address], [facility] [phone] * (ABNORMAL) RENAL FUNCTION PANEL (11/30/2022 3:20 AM CDT) [facility] BUN 8 7 - 26 mg/dL 11/30/2022 3:59 AM CDT [facility] Creatinine 0.54(L) 0.71 - 1.16 mg/dL 11/30/2022 3:59 AM CDT [facility] Sodium 139 136 - 145 mmol/L 11/30/2022 3:59 AM CDT [facility] Potassium 3.8 3.5 - 4.5 mmol/L 11/30/2022 3:59 AM CDT [facility] Chloride 108(H) 98 - 107 mmol/L 11/30/2022 3:59 AM [facility] CO2 25 22 - 29 mmol/L 11/30/2022 3:59 AM [facility] Glucose 108 70 - 115 mg/dL 11/30/2022 3:59 AM [facility] Albumin 2.0(L) 3.4 - 5.0 g/dL 11/30/2022 3:59 AM [facility] Calcium 9.3 8.4 - 10.2 mg/dL 11/30/2022 3:59 AM [facility] Phosphorus 2.9 2.8 - 5.1 mg/dL 11/30/2022 3:59 AM [facility] Anion Gap 10 8 - 18 11/30/2022 3:59 AM [facility] BUN/Creatinine Ratio 15 7 - 23 11/30/2022 3:59 AM [facility] Osmolality Calculated 287 270 - 300 mOsm/kg 11/30/2022 3:59 AM [facility] eGFR by CKD-EPI >90 >=90 mL/min/1.7 3 m2 11/30/2022 3:59 AM [facility] Blood BLOOD SPECIMEN / Unknown Venipuncture / Unknown 11/30/2022 3:20 AM CDT 11/30/2022 3:24 AM CDT Neville Hewitt III, MD LAB - CHEMISTRY ORDERABLES Performing Organization Address City/State/[facility] de Phone Number [facility] [address] [place] [address], [facility] [phone] * (ABNORMAL) CBC W AUTO DIFFERENTIAL (11/30/2022 3:20 AM CDT) WBC 8.9 3.5 - 10.5 10? 3 /uL 11/30/2022 3:34 AM [facility] RBC 2.64(L) 4.30 - 5.70 10? 6 /uL 11/30/2022 3:34 AM [facility] Hemoglobin 8.0(L) 12.0 - 17.6 g/dL 11/30/2022 3:34 AM [facility] Hematocrit 24.8(L) 35.2 - 51.7 % 11/30/2022 3:34 AM [facility] MCV 93.9 80.7 - 98.3 fL 11/30/2022 3:34 AM [facility] MCH 30.3 26.7 - 34.0 pg 11/30/2022 3:34 AM [facility] MCHC 32.3 30.8 - 35.9 g/dL 11/30/2022 3:34 AM [facility] RDW-SD 54.6(H) 36.0 - 50.0 fL 11/30/2022 3:34 AM [facility] RDW-CV 15.9(H) 11.2 - 14.8 % 11/30/2022 3:34 AM [facility] Platelet Count 205 150 - 400 10? 3 /uL 11/30/2022 3:34 AM [facility] MPV 11.6 9.4 - 12.9 fL 11/30/2022 3:34 AM [facility] nRBC Absolute 0.00 0 10? 3 /uL 11/30/2022 3:34 AM [facility] nRBC Auto 0.0 0 /100 WBC 11/30/2022 3:34 AM [facility] Neutrophils % 62.6 35.0 - 70.0 % 11/30/2022 3:34 AM [facility] Lymphocytes % 20.5 20.0 - 43.0 % 11/30/2022 3:34 AM [facility] Monocytes % 12.7 5.0 - 13.0 % 11/30/2022 3:34 AM [facility] Eosinophils % 3.6 0.0 - 6.0 % 11/30/2022 3:34 AM [facility] Basophil % 0.2 0.0 - 2.0 % 11/30/2022 3:34 AM [facility] Neutrophils Absolute 5.56 1.60 - 7.00 10? 3 /uL 11/30/2022 3:34 AM [facility] Lymphocyte Absolute 1.82 1.10 - 3.90 10? 3 /uL 11/30/2022 3:34 AM CDT [facility] Monocytes Absolute 1.13(H) 0.26 - 1.07 10? 3 /uL 11/30/2022 3:34 AM CDT [facility] Eosinophils Absolute 0.32 0.00 - 0.47 10? 3 /uL 11/30/2022 3:34 AM CDT [facility] Basophils Absolute 0.02 0.00 - 0.08 10? 3 /uL 11/30/2022 3:34 AM CDT [facility] Immature Granulocytes % 0.4 0.0 - 1.0 % 11/30/2022 3:34 AM CDT [facility] Immature Granulocytes Absolute 0.04 11/30/2022 3:34 AM CDT [facility] Blood BLOOD SPECIMEN / Unknown Venipuncture / Unknown 11/30/2022 3:20 AM CDT 11/30/2022 3:24 AM CDT Neville Hewitt III, MD LAB - HEMATOLOGY ORDERABLES Performing Organization Address City/[facility]/ZIP Co de Phone Number [address] [address], [facility] [phone] * GLUCOSE - POINT OF CARE (11/30/2022 12:21 AM CDT) Glucose WB/POC 114 70 - 115 mg/dL 11/30/2022 9:40 AM CDT [facility] Specimen Type Cap Fingerstick 2022 9:40 AM CDT [facility] Blood BLOOD SPECIMEN / Unknown 11/30/2022 12:21 AM CDT 11/30/2022 9:40 AM CDT Ilir Mckenzie MD LAB - POINT OF CARE ORDERABLES [address] [address], [place] [phone] * GLUCOSE - POINT OF CARE (11/29/2022 7:48 PM CDT) Glucose WB/POC 113 70 - 115 mg/dL 11/30/2022 9:40 AM CDT [facility] Specimen Type Cap Fingerstick 2022 9:40 AM CDT [facility] Blood BLOOD SPECIMEN / Unknown 11/29/2022 7:48 PM CDT 11/30/2022 9:40 AM CDT Ilir Mckenzie MD LAB - POINT OF CARE ORDERABLES [address] [address], [place] [phone] * GLUCOSE - POINT OF CARE (11/29/2022 4:00 PM CDT) Glucose WB/POC 109 70 - 115 mg/dL 11/29/2022 4:00 PM CDT [facility] Specimen Type Cap Fingerstick 2022 4:00 PM CDT [facility] Blood BLOOD SPECIMEN / Unknown 11/29/2022 4:00 PM CDT 11/29/2022 4:00 PM CDT Ilir Mckenzie MD LAB - POINT OF CARE ORDERABLES Performing Organization Address City/[facility]/ZIP Co de Phone Number [address] [address], [place] [phone] * (ABNORMAL) GLUCOSE - POINT OF CARE (11/29/2022 12:37 PM CDT) Glucose WB/POC 125(H) 70 - 115 mg/dL 11/29/2022 12:41 PM CDT [facility] Specimen Type Cap Fingerstick 2022 12:41 PM CDT [facility] Blood BLOOD SPECIMEN / Unknown 11/29/2022 12:37 PM CDT 11/29/2022 12:41 PM CDT Ilir Mckenzie MD LAB - POINT OF CARE ORDERABLES [address] [address], [place] [phone] * VAS BILATERAL VENOUS DUPLEX LE (11/29/2022 11:46 AM CDT) Anatomical Region Laterality Modality Lower Extremity Intravascular Ul trasound 11/29/2022 11:1 3 AM CDT Narrative Procedure Note Kaylee Wills MD - 11/29/2022 Stephen Witt MD VASCULAR LAB OR DERABLES * EKG 12-LEAD (11/29/2022 11:40 AM CDT) Ventricular Rate 114 BPM [facility] Atrial Rate 114 BPM [facility] P-R Interval 136 ms [facility] QRS Duration ms 76 ms [facility] Q-T Interval ms 318 ms [facility] QTC Calculation (Bezet) 438 ms [facility] Calculated P [place] 60 degrees [facility] Calculated R [place] -13 degrees [facility] Calculated T [place] 74 degrees [facility] Interpretation EKG SINUS TACHYCARDIA ANTEROSEPTAL INFARCT (CITED ON OR BEFORE 09-OCT-2022) ST ELEVATION IN ANTEROSEPTAL LEADS consider aneurysm or no reflow ABNORMAL ECG WHEN COMPARED WITH ECG OF 27-NOV-2022 10:27, VENT. RATE HAS DECREASED by [address] ELEVATION NOW PRESENT IN ANTERIOR LEADS Confirmed by RYANNE HARDEN MD ([id number]) on 11/29/2022 7:22:59 PM [facility] MUSE 11/29/2022 11:4 0 AM CDT 11/29/2022 7:22 PM CDT Ilir Mckenzie MD ECG ORDERABLES [facility] MUSE * (ABNORMAL) ECHO COMPLETE (11/29/2022 9:56 AM CDT) BSA [id number] m2 [facility] CV FUJ I PACS LV [...] 63.148 cm/s [facility] CV FUJ I PACS [id number] 6.722 cm [facility] CV FUJ I PACS [id number] 6.885 cm [facility] CV FUJ I PACS [...] Hewitt III, MD ECHO CUPID * (ABNORMAL) GLUCOSE - POINT OF CARE (11/29/2022 8:49 AM CDT) [facility] Glucose WB/POC 118(H) 70 - 115 mg/dL 11/29/2022 8:50 AM CDT [facility] Specimen Type Cap Fingerstick 2022 8:50 AM CDT [facility] Blood BLOOD SPECIMEN / Unknown 11/29/2022 8:49 AM CDT 11/29/2022 8:50 AM CDT Ilir Mckenzie MD LAB - POINT OF CARE ORDERABLES [facility] [address] [place] [address], [facility] [phone] * (ABNORMAL) METANEPHRINES URINE FRACTIONATED (11/29/2022 8:31 AM CDT) [facility] Metanephrine 24 Hour Urine 181 55 - 320 ug/d 12/03/2022 6:56 AM CDT [facility] ([facility]) Collection Time Hours 24 hr 12/03/2022 6:56 AM CDT [facility] ([facility]) Comment: Per 24h calculations are provided to aid interpretation for collections with a duration of 24 hours and an average daily urine volume. For specimens with notable deviations in collection time or volume, ratios of analytes to a corresponding urine creatinine concentration may assist in result interpretation. Volume 24 Hour Urine 1250 mL 12/03/2022 6:56 AM CDT [facility] ([facility]) Metanephrine Urine 145 ug/L 2022 6:56 AM CDT [facility] ([facility]) Normetanephrine Urine 1362 ug/L 12/03/2022 6:56 AM CDT [facility] ([facility]) Metanephrine Urine Ratio to [employer]FF[employer]EARCHER 179 0 - 300 ug/g GOVERN[employer] AFFA[employer] RESEARCHER 12/03/2022 6:56 AM CDT [facility] ([facility]) Normetanephrine 24 Hour Urine 1702(H) 114 - 865 ug/d 12/03/2022 6:56 AM CDT [facility] ([facility]) Normetanephrine ug/g [employer]ER 1681(H) 0 - 400 ug/g [employer]ER 12/03/2022 6:56 AM CDT [facility] ([facility]) Interpretation Metanephrine Urine See Note 12/03/2022 6:56 AM CDT [facility] ([facility]) Comment: TEST INFORMATION: Metanephrines Fractionated, Urine Smaller [...] reference intervals for this test in the [facility] [facility] Test Directory ([employer]). This test was developed and its performance characteristics determined by [employer]. It has not been cleared or approved by the [place] Food and Drug Administration. This test was performed in a CLIA certified laboratory and is intended for clinical purposes. Creatinine Urine 81 mg/dL 12/04/19 6:56 AM CDT [facility] ([facility]) Creatinine 24 Hour Urine 1012 800 - 2100 mg/d 12/03/2022 6:56 AM CDT [facility]) Comment: Performed by [facility], [address] [place] [address] [email or web address], Power Milian MD, PHD, Lab. Director Urine URINE SPECIMEN COLLECTION, 24 HOURS / Unknown Timed Urine Volume Measurement / Unknown 11/29/2022 8:31 AM CDT 11/29/2022 9:31 AM CDT Stephen Witt MD LAB - URINE STEFANI MATHEUS ORDERABLES [facility]) [address] * MAGNESIUM BLOOD (11/29/2022 3:12 AM CDT) Magnesium 1.9 1.6 - 2.6 mg/dL 11/29/2022 4:06 AM [facility] Blood BLOOD SPECIMEN / Unknown Venipuncture / Unknown 11/29/2022 3:12 AM CDT 11/29/2022 3:36 AM CDT Neville Hewitt III, MD LAB - CHEMISTRY ORDERABLES [facility] [address] [place] [address], [facility] [phone] * (ABNORMAL) RENAL FUNCTION PANEL (11/29/2022 3:12 AM CDT) BUN 11 7 - 26 mg/dL 11/29/2022 4:06 AM [facility] Creatinine 0.47(L) 0.71 - 1.16 mg/dL 11/29/2022 4:06 AM [facility] Sodium 136 136 - 145 mmol/L 11/29/2022 4:06 AM [facility] Potassium 4.1 3.5 - 4.5 mmol/L 11/29/2022 4:06 AM [facility] Chloride 108(H) 98 - 107 mmol/L 11/29/2022 4:06 AM [facility] CO2 23 22 - 29 mmol/L 11/29/2022 4:06 AM [facility] Glucose 125(H) 70 - 115 mg/dL 11/29/2022 4:06 AM [facility] Albumin 2.2(L) 3.4 - 5.0 g/dL 11/29/2022 4:06 AM [facility] Calcium 9.0 8.4 - 10.2 mg/dL 11/29/2022 4:06 AM [facility] Phosphorus 2.7(L) 2.8 - 5.1 mg/dL 11/29/2022 4:06 AM [facility] Anion Gap 9 8 - 18 11/29/2022 4:06 AM [facility] BUN/Creatinine Ratio 23 7 - 23 11/29/2022 4:06 AM [facility] Osmolality Calculated 283 270 - 300 mOsm/kg 11/29/2022 4:06 AM [facility] eGFR by CKD-EPI >90 >=90 mL/min/1.7 3 m2 11/29/2022 4:06 AM [facility] Blood BLOOD SPECIMEN / Unknown Venipuncture / Unknown 11/29/2022 3:12 AM CDT 11/29/2022 3:36 AM CDT Neville Hewitt III, MD LAB - CHEMISTRY ORDERABLES [facility] [address] [place] [address], [facility] [phone] * (ABNORMAL) CBC W AUTO DIFFERENTIAL (11/29/2022 3:12 AM CDT) WBC 12.9(H) 3.5 - 10.5 10? 3 /uL 11/29/2022 3:47 AM [facility] RBC 2.93(L) 4.30 - 5.70 10? 6 /uL 11/29/2022 3:47 AM [facility] Hemoglobin 9.1(L) 12.0 - 17.6 g/dL 11/29/2022 3:47 AM [facility] Hematocrit 27.3(L) 35.2 - 51.7 % 11/29/2022 3:47 AM [facility] MCV 93.2 80.7 - 98.3 fL 11/29/2022 3:47 AM [facility] MCH 31.1 26.7 - 34.0 pg 11/29/2022 3:47 AM [facility] MCHC 33.3 30.8 - 35.9 g/dL 11/29/2022 3:47 AM [facility] RDW-SD 54.0(H) 36.0 - 50.0 fL 11/29/2022 3:47 AM [facility] RDW-CV 15.9(H) 11.2 - 14.8 % 11/29/2022 3:47 AM [facility] Platelet Count 202 150 - 400 10? 3 /uL 11/29/2022 3:47 AM [facility] MPV 12.4 9.4 - 12.9 fL 11/29/2022 3:47 AM [facility] nRBC Absolute 0.00 0 10? 3 /uL 11/29/2022 3:47 AM [facility] nRBC Auto 0.0 0 /100 WBC 11/29/2022 3:47 AM [facility] Neutrophils % 73.5(H) 35.0 - 70.0 % 11/29/2022 3:47 AM [facility] Lymphocytes % 12.5(L) 20.0 - 43.0 % 11/29/2022 3:47 AM [facility] Monocytes % 11.3 5.0 - 13.0 % 11/29/2022 3:47 AM [facility] Eosinophils % 2.0 0.0 - 6.0 % 11/29/2022 3:47 AM [facility] Basophil % 0.2 0.0 - 2.0 % 11/29/2022 3:47 AM [facility] Neutrophils Absolute 9.45(H) 1.60 - 7.00 10? 3 /uL 11/29/2022 3:47 AM [facility] Lymphocyte Absolute 1.61 1.10 - 3.90 10? 3 /uL 11/29/2022 3:47 AM [facility] Monocytes Absolute 1.46(H) 0.26 - 1.07 10? 3 /uL 11/29/2022 3:47 AM [facility] Eosinophils Absolute 0.26 0.00 - 0.47 10? 3 /uL 11/29/2022 3:47 AM [facility] Basophils Absolute 0.03 0.00 - 0.08 10? 3 /uL 11/29/2022 3:47 AM [facility] Immature Granulocytes % 0.5 0.0 - 1.0 % 11/29/2022 3:47 AM [facility] Immature Granulocytes Absolute 0.07 11/29/2022 3:47 AM [facility] Blood BLOOD SPECIMEN / Unknown Venipuncture / Unknown 11/29/2022 3:12 AM CDT 11/29/2022 3:36 AM CDT Neville Hewitt III, MD LAB - HEMATOLOGY ORDERABLES Performing Organization Address City/[facility]/ZIP Co de Phone Number [address] [address], [facility] [phone] * (ABNORMAL) GLUCOSE - POINT OF CARE (11/28/2022 3:42 PM CDT) Glucose WB/POC 118(H) 70 - 115 mg/dL 11/29/2022 8:39 AM CDT [facility] Specimen Type Cap Fingerstick 2022 8:39 AM CDT [facility] Blood BLOOD SPECIMEN / Unknown 11/28/2022 3:42 PM CDT 11/29/2022 8:39 AM CDT Stephen Witt MD LAB - POINT OF CARE ORDERABLES Performing Organization Address [facility]/ZIP Co de Phone Number [address] [address], [facility] [phone] * (ABNORMAL) CULTURE SPUTUM+GRAM STAIN (11/28/2022 2:27 PM CDT) Pathologist [facility] Culture Heavy Pseudomonas aeruginosa(A) JELLY 12/02/2022 12:04 AM CDT [facility] Culture Moderate Acinetobacter baumannii(A) JELLY 12/02/2022 12:04 AM CDT [facility] Comment: Isolate is multi drug resistant organism (MDRO). Isolate is carbapenem resistant Culture Heavy normal oropharyngeal heidi 12/02/2022 12:04 AM CDT [facility] Gram Stain <10 per low power field Squamous epithelial cells 12/02/2022 12:04 AM CDT [facility] Gram Stain >= 25 per low power field Polymorphonuclear cells 12/02/2022 12:04 AM CDT [facility] Gram Stain Heavy Gram-negative bacilli 12/02/2022 12:04 AM CDT [facility] Gram Stain Heavy Gram-positive bacilli 12/02/2022 12:04 AM CDT [facility] Microbiology SPUTUM / Unknown Collection / Unknown 11/28/2022 2:27 PM CDT 11/28/2022 2:43 PM CDT Narrative [facility] - 12/02/2022 12:04 AM CDT This isolate is carbapenem resistant. Contact precautions required. Infectious Disease consult recommended. This isolate is a multidrug resistant organism (MDRO). MDROs are resistant to 3 or more classes of antibiotics. Contact Precautions required. Infectious Diseases consult recommended. Organism Antibiotic Method Susceptibility Pseudomonas aeruginosa Amikacin JELLY <=2 ug/mL: Susceptible Pseudomonas aeruginosa Cefepime JELLY 2 ug/mL: Susceptible Pseudomonas aeruginosa Ceftazidime JELLY 8 ug/mL: Susceptible Pseudomonas aeruginosa Ciprofloxacin JELLY <=0.25 ug/mL: Susceptible Pseudomonas aeruginosa Gentamicin JELLY <=1 ug/mL: Susceptible Pseudomonas aeruginosa Meropenem JELLY 0.5 ug/mL: Susceptible Pseudomonas aeruginosa Piperacillin-tazobactam JELLY 32 ug/mL: Intermediate Pseudomonas aeruginosa Tobramycin JELLY <=1 ug/mL: Susceptible Acinetobacter baumannii Ampicillin-sulbactam JELLY >=32 ug/mL: Resistant Acinetobacter baumannii Cefepime JELLY >=64 ug/mL: Resistant Acinetobacter baumannii Ceftazidime JELLY 16 ug/mL: Intermediate Acinetobacter baumannii Ciprofloxacin JELLY >=4 ug/mL: Resistant Acinetobacter baumannii Gentamicin JELLY <=1 ug/mL: Susceptible Acinetobacter baumannii Meropenem JELLY >=16 ug/mL: Resistant Acinetobacter baumannii Piperacillin-tazobactam JELLY >=128 ug/mL: Resistant Acinetobacter baumannii Tobramycin JELLY <=1 ug/mL: Susceptible Acinetobacter baumannii Trimethoprim-sul famethoxa zole JELLY <=20 ug/mL: Susceptible Comment:For Acinetobacter ba umannii, susceptibility to ampicillin/sulbactam (Unasyn) is based on the sulbactam component of the antibiotic thus susceptibility to amoxicillin/clavulanic acid (Augmentin) cannot be inferred. Stephen Witt MD LAB - MICROBIOL OGY ORDERABLES [facility] MICROBIOLOGY [address] [place] [address], [facility] [phone] * (ABNORMAL) GLUCOSE - POINT OF CARE (11/28/2022 1:03 PM CDT) [facility] Signature Glucose WB/POC 141(H) 70 - 115 mg/dL 11/29/2022 8:39 AM CDT [facility] Specimen Type Cap Fingerstick 2022 8:39 AM CDT [facility] Blood BLOOD SPECIMEN / Unknown 11/28/2022 1:03 PM CDT 11/29/2022 8:39 AM CDT Stephen Witt MD LAB - POINT OF CARE ORDERABLES [address] [address], [place] [phone] * (ABNORMAL) GLUCOSE - POINT OF CARE (11/28/2022 7:23 AM CDT) Glucose WB/POC 129(H) 70 - 115 mg/dL 11/28/2022 7:27 AM CDT [facility] Specimen Type Cap Fingerstick 2022 7:27 AM CDT [facility] Blood BLOOD SPECIMEN / Unknown 11/28/2022 7:23 AM CDT 11/28/2022 7:27 AM CDT Stephen Witt MD LAB - POINT OF CARE ORDERABLES Performing Organization Address City/[facility]/ZIP Co de Phone Number [address] [address], [place] [phone] * MAGNESIUM BLOOD (11/28/2022 4:34 AM CDT) Magnesium 1.8 1.6 - 2.6 mg/dL 11/28/2022 5:42 AM CDT [facility] Blood BLOOD SPECIMEN / Unknown Venipuncture / Unknown 11/28/2022 4:34 AM CDT 11/28/2022 5:13 AM CDT Neville Hewitt III, MD LAB - CHEMISTRY ORDERABLES Performing Organization Address City/[facility]/ZIP Co de Phone Number [address] [address], [place] [phone] * (ABNORMAL) RENAL FUNCTION PANEL (11/28/2022 4:34 AM CDT) BUN 12 7 - 26 mg/dL 11/28/2022 5:42 AM [facility] Creatinine 0.50(L) 0.71 - 1.16 mg/dL 11/28/2022 5:42 AM [facility] Sodium 136 136 - 145 mmol/L 11/28/2022 5:42 AM [facility] Potassium 4.1 3.5 - 4.5 mmol/L 11/28/2022 5:42 AM [facility] Chloride 108(H) 98 - 107 mmol/L 11/28/2022 5:42 AM [facility] CO2 21(L) 22 - 29 mmol/L 11/28/2022 5:42 AM [facility] Glucose 129(H) 70 - 115 mg/dL 11/28/2022 5:42 AM [facility] Albumin 2.4(L) 3.4 - 5.0 g/dL 11/28/2022 5:42 AM [facility] Calcium 9.5 8.4 - 10.2 mg/dL 11/28/2022 5:42 AM [facility] Phosphorus 3.4 2.8 - 5.1 mg/dL 11/28/2022 5:42 AM [facility] Anion Gap 11 8 - 18 11/28/2022 5:42 AM [facility] BUN/Creatinine Ratio 24(H) 7 - 23 11/28/2022 5:42 AM [facility] Osmolality Calculated 283 270 - 300 mOsm/kg 11/28/2022 5:42 AM [facility] eGFR by CKD-EPI >90 >=90 mL/min/1.7 3 m2 11/28/2022 5:42 AM [facility] Blood BLOOD SPECIMEN / Unknown Venipuncture / Unknown 11/28/2022 4:34 AM CDT 11/28/2022 5:13 AM T Neville Hewitt III, MD LAB - CHEMISTRY ORDERABLES [facility] [address] [place] [address], [facility] [phone] * (ABNORMAL) CBC W AUTO DIFFERENTIAL (11/28/2022 4:34 AM CDT) WBC 14.6(H) 3.5 - 10.5 10? 3 /uL 11/28/2022 5:48 AM CDT [facility] RBC 3.49(L) 4.30 - 5.70 10? 6 /uL 11/28/2022 5:48 AM [facility] Hemoglobin 10.7(L) 12.0 - 17.6 g/dL 11/28/2022 5:48 AM [facility] Hematocrit 32.3(L) 35.2 - 51.7 % 11/28/2022 5:48 AM [facility] MCV 92.6 80.7 - 98.3 fL 11/28/2022 5:48 AM [facility] MCH 30.7 26.7 - 34.0 pg 11/28/2022 5:48 AM T [facility] MCHC 33.1 30.8 - 35.9 g/dL 11/28/2022 5:48 AM [facility] RDW-SD 53.7(H) 36.0 - 50.0 fL 11/28/2022 5:48 AM [facility] RDW-CV 15.9(H) 11.2 - 14.8 % 11/28/2022 5:48 AM [facility] Platelet Count 244 150 - 400 10? 3 /uL 11/28/2022 5:48 AM [facility] MPV 12.7 9.4 - 12.9 fL 11/28/2022 5:48 AM [facility] nRBC Absolute 0.00 0 10? 3 /uL 11/28/2022 5:48 AM [facility] nRBC Auto 0.0 0 /100 WBC 11/28/2022 5:48 AM [facility] Neutrophils % 67.5 35.0 - 70.0 % 11/28/2022 5:48 AM [facility] Lymphocytes % 20.3 20.0 - 43.0 % 11/28/2022 5:48 AM [facility] Monocytes % 9.8 5.0 - 13.0 % 11/28/2022 5:48 AM [facility] Eosinophils % 1.6 0.0 - 6.0 % 11/28/2022 5:48 AM [facility] Basophil % 0.3 0.0 - 2.0 % 11/28/2022 5:48 AM [facility] Neutrophils Absolute 9.90(H) 1.60 - 7.00 10? 3 /uL 11/28/2022 5:48 AM [facility] Lymphocyte Absolute 2.97 1.10 - 3.90 10? 3 /uL 11/28/2022 5:48 AM [facility] Monocytes Absolute 1.43(H) 0.26 - 1.07 10? 3 /uL 11/28/2022 5:48 AM [facility] Eosinophils Absolute 0.23 0.00 - 0.47 10? 3 /uL 11/28/2022 5:48 AM [facility] Basophils Absolute 0.04 0.00 - 0.08 10? 3 /uL 11/28/2022 5:48 AM [facility] Immature Granulocytes % 0.5 0.0 - 1.0 % 11/28/2022 5:48 AM [facility] Immature Granulocytes Absolute 0.07 11/28/2022 5:48 AM [facility] Blood BLOOD SPECIMEN / Unknown Venipuncture / Unknown 11/28/2022 4:34 AM CDT 11/28/2022 5:13 AM CDT Neville Hewitt III, MD LAB - HEMATOLOGY ORDERABLES [address] [address], [facility] [phone] * (ABNORMAL) GLUCOSE - POINT OF CARE (11/27/2022 5:14 PM CDT) Glucose WB/POC 133(H) 70 - 115 mg/dL 11/27/2022 5:19 PM T [facility] Specimen Type Cap Fingerstick 2022 5:19 PM CDT [facility] Blood BLOOD SPECIMEN / Unknown 11/27/2022 5:14 PM CDT 11/27/2022 5:19 PM CDT Stephen Witt MD LAB - POINT OF CARE ORDERABLES Performing Organization Address City/[facility]/ZIP Co de Phone Number [address] [address], [facility] [phone] * TSH REFLEX FREE T4 (11/27/2022 3:42 PM CDT) TSH 1.790 0.350 - 4.940 uIU/mL 11/27/2022 4:35 PM CDT [facility] Blood BLOOD SPECIMEN / Unknown Venipuncture / Unknown 11/27/2022 3:42 PM CDT 11/27/2022 3:49 PM CDT Stephen Witt MD LAB - CHEMISTRY ORDERABLES Performing Organization Address City/[facility]/ZIP Co de Phone Number [address] [address], [facility] [phone] * CT ANGIO CHEST PULM EMBOLISM (11/27/2022 2:32 PM CDT) Anatomical Region Laterality Modality Chest [...] tubes are appropriately positioned. > Dictated by Ryanne Harris MD (resident medical officer). IAshwin MD have personally reviewed and interpreted this examination/study. > Interpreting Provider: Ashwin Read MD on 11/27/2022 5:49 PM Narrative 11/27/2022 5:49 PM CDT PROCEDURE: ??CT ANGIO CHEST PULM EMBOLISM, DATE/TIME OF EXAM: ??11/27/2022 2:33 PM, LOCATION ??[facility] INDICATION: R00.0: Sinus tachycardia ADDITIONAL CLINICAL INFORMATION: [...] imaged colon. Otherwise, unremarkable. Procedure Note Dianne Read MD - 01/10/2023 PROCEDURE: CT ANGIO CHEST PULM EMBOLISM, DATE/TIME OF EXAM: 32:33 PM, LOCATION [facility] INDICATION: R00.0: Sinus tachycardia ADDITIONAL CLINICAL INFORMATION: [...] tubes are appropriately positioned. > Dictated by Ryanne Harris MD (resident medical officer). IAshwin MD have personally reviewed and interpreted this examination/study. > Interpreting Provider: Ashwin Read MD on 11/27/2022 5:49 PM [address] MD [address] ORDERABLES * (ABNORMAL) GLUCOSE - POINT OF CARE (11/27/2022 11:31 AM CDT) Glucose WB/POC 136(H) 70 - 115 mg/dL 11/27/2022 11:36 AM CDT [facility] Specimen Type Cap Fingerstick 2022 11:36 AM CDT [facility] Blood BLOOD SPECIMEN / Unknown 11/27/2022 11:31 AM CDT 11/27/2022 11:36 AM CDT Stephen Witt MD LAB - POINT OF CARE ORDERABLES Performing Organization Address [facility]/ZIP Co de Phone Number [facility] [address] [place] [address], [place] [phone] * EKG 12-LEAD (11/27/2022 10:27 AM CDT) Ventricular Rate 149 BPM [facility] MUSE Atrial Rate 149 BPM [facility] MUSE P-R Interval 116 ms [facility] MUSE QRS Duration ms 78 ms [facility] MUSE Q-T Interval ms 334 ms [facility] MUSE QTC Calculation (Bezet) 526 ms [facility] MUSE Calculated P [place] 75 degrees SL MUSE Calculated R [place] -2 degrees [facility] MUSE Calculated T [place] 94 degrees [facility] MUSE Interpretation EKG SINUS TACHYCARDIA SEPTAL INFARCT , AGE UNDETERMINED ABNORMAL ECG WHEN COMPARED WITH ECG OF 26-NOV-2022 14:50, VENT. RATE HAS INCREASED by [address] LESS ELEVATED IN ANTERIOR LEADS ST NOW DEPRESSED IN LATERAL LEADS Confirmed by RYANNE HARDEN MD ([id number]) on 11/28/2022 8:06:49 AM [facility] MUSE 11/27/2022 10:2 7 AM CDT 11/28/2022 8:06 AM CDT Stephen Witt MD ECG ORDERABLES Performing Organization Address [facility] de Phone Number [facility] * (ABNORMAL) GLUCOSE - POINT OF CARE (11/27/2022 7:45 AM CDT) [facility] Glucose WB/POC 128(H) 70 - 115 mg/dL 11/27/2022 7:50 AM CDT [facility] Specimen Type Cap Fingerstick 2022 7:50 AM CDT [facility] Blood BLOOD SPECIMEN / Unknown 11/27/2022 7:45 AM CDT 11/27/2022 7:50 AM CDT Stephen Witt MD LAB - POINT OF CARE ORDERABLES Performing Organization Address [facility]/ZIP Co de Phone Number [facility] [address] [place] [address], [place] [phone] * (ABNORMAL) BLOOD GASES ART + COOX PANEL (11/27/2022 3:28 AM [facility] pH Arterial 7.47(H) 7.35 - 7.45 pH 11/27/2022 3:36 AM [facility] pO2 Arterial 84 80 - 100 mmHg 11/27/2022 3:36 AM [facility] pCO2 Arterial 35 35 - 45 mmHg 3:36 AM [facility] HCO3 Arterial 25.5 20.0 - 30.0 mmol/L 11/27/2022 3:36 AM [facility] BE Arterial 2.1(H) -2.0 - 2.0 mmol/L 11/27/2022 3:36 AM [facility] Oxyhemoglobin Arterial 95.3 % 11/27/2022 3:36 AM [facility] Dexoyhemoglobin (HHB) % 2.0 % 11/27/2022 3:36 AM [facility] Methemoglobin <0.8 0.0 - 2.0 % 11/27/2022 3:36 AM [facility] Carboxyhemoglobin 2.0 0.0 - 2.0 % 2022 3:36 AM [facility] O2 Content Arterial 17.1 Interpret within clinical context ml/dL 11/27/2022 3:36 AM [facility] Hemoglobin by COOX 12.7 12.0 - 17.6 g/dL 11/27/2022 3:36 AM [facility] O2 Saturation Arterial 98 90 - 100 % 11/27/2022 3:36 AM [facility] FI O2 Arterial 25.0 % 11/27/2022 3:36 AM [facility] Blood, arterial ARTERIAL BLOOD SPECIMEN / Unknown Arterial Puncture / Unknown 11/27/2022 3:28 AM T 11/27/2022 3:33 AM [facility] - 11/27/2022 3:36 AM [facility] Carboxyhemoglobin Normal Concentration: Non-smokers: 0-2%; Smokers: 0-9%; Toxic: >20% Stephen Witt MD LAB - BLOOD GAS ES ORDERABLES [address] [address], [place] [phone] * MAGNESIUM BLOOD (11/27/2022 3:18 AM CDT) Magnesium 2.0 1.6 - 2.6 mg/dL 11/27/2022 4:02 AM [facility] Blood BLOOD SPECIMEN / Unknown Venipuncture / Unknown 11/27/2022 3:18 AM CDT 11/27/2022 3:34 AM CDT Neville Hewitt III, MD LAB - CHEMISTRY ORDERABLES Performing Organization Address City/[facility]/ZIP Co de Phone Number [address] [address], [facility] [phone] * (ABNORMAL) RENAL FUNCTION PANEL (11/27/2022 3:18 AM CDT) BUN 8 7 - 26 mg/dL 11/27/2022 4:02 AM [facility] Creatinine 0.45(L) 0.71 - 1.16 mg/dL 11/27/2022 4:02 AM [facility] Sodium 137 136 - 145 mmol/L 11/27/2022 4:02 AM [facility] Potassium 4.2 3.5 - 4.5 mmol/L 11/27/2022 4:02 AM [facility] Chloride 104 98 - 107 mmol/L 11/27/2022 4:02 AM [facility] CO2 22 22 - 29 mmol/L 11/27/2022 4:02 AM [facility] Glucose 115 70 - 115 mg/dL 11/27/2022 4:02 AM [facility] Albumin 2.6(L) 3.4 - 5.0 g/dL 11/27/2022 4:02 AM [facility] Calcium 9.7 8.4 - 10.2 mg/dL 11/27/2022 4:02 AM [facility] Phosphorus 3.0 2.8 - 5.1 mg/dL 11/27/2022 4:02 AM [facility] Anion Gap 15 8 - 18 11/27/2022 4:02 AM [facility] BUN/Creatinine Ratio 18 7 - 23 11/27/2022 4:02 AM [facility] Osmolality Calculated 283 270 - 300 mOsm/kg 11/27/2022 4:02 AM [facility] eGFR by CKD-EPI >90 >=90 mL/min/1.7 3 m2 11/27/2022 4:02 AM [facility] Blood BLOOD SPECIMEN / Unknown Venipuncture / Unknown 11/27/2022 3:18 AM CDT 11/27/2022 3:34 AM T Neville Hewitt III, MD LAB - CHEMISTRY ORDERABLES Performing Organization Address City/State/[facility] [[email or web address] Co de Phone Number [facility] [address] [place] [phone] [phone] * (ABNORMAL) CBC W AUTO DIFFERENTIAL (11/27/2022 3:18 AM CDT) WBC 15.4(H) 3.5 - 10.5 10? 3 /uL 11/27/2022 3:45 AM [facility] RBC 4.00(L) 4.30 - 5.70 10? 6 /uL 11/27/2022 3:45 AM [facility] Hemoglobin 12.4 12.0 - 17.6 g/dL 11/27/2022 3:45 AM [facility] Hematocrit 37.2 35.2 - 51.7 % 11/27/2022 3:45 AM [facility] MCV 93.0 80.7 - 98.3 fL 11/27/2022 3:45 AM [facility] MCH 31.0 26.7 - 34.0 pg 11/27/2022 3:45 AM [facility] MCHC 33.3 30.8 - 35.9 g/dL 11/27/2022 3:45 AM [facility] RDW-SD 52.8(H) 36.0 - 50.0 fL 11/27/2022 3:45 AM [facility] RDW-CV 15.7(H) 11.2 - 14.8 % 11/27/2022 3:45 AM [facility] Platelet Count 260 150 - 400 10? 3 /uL 11/27/2022 3:45 AM [facility] MPV 12.5 9.4 - 12.9 fL 11/27/2022 3:45 AM [facility] nRBC Absolute 0.00 0 10? 3 /uL 11/27/2022 3:45 AM [facility] nRBC Auto 0.0 0 /100 WBC 11/27/2022 3:45 AM [facility] Neutrophils % 72.2(H) 35.0 - 70.0 % 11/27/2022 3:45 AM [facility] Lymphocytes % 17.7(L) 20.0 - 43.0 % 11/27/2022 3:45 AM [facility] Monocytes % 7.5 5.0 - 13.0 % 11/27/2022 3:45 AM [facility] Eosinophils % 1.8 0.0 - 6.0 % 11/27/2022 3:45 AM [facility] Basophil % 0.2 0.0 - 2.0 % 11/27/2022 3:45 AM [facility] Neutrophils Absolute 11.11(H) 1.60 - 7.00 10? 3 /uL 11/27/2022 3:45 AM [facility] Lymphocyte Absolute 2.73 1.10 - 3.90 10? 3 /uL 11/27/2022 3:45 AM [facility] Monocytes Absolute 1.16(H) 0.26 - 1.07 10? 3 /uL 11/27/2022 3:45 AM [facility] Eosinophils Absolute 0.28 0.00 - 0.47 10? 3 /uL 11/27/2022 3:45 AM [facility] Basophils Absolute 0.03 0.00 - 0.08 10? 3 /uL 11/27/2022 3:45 AM [facility] Immature Granulocytes % 0.6 0.0 - 1.0 % 11/27/2022 3:45 AM CDT [facility] Immature Granulocytes Absolute 0.09 11/27/2022 3:45 AM CDT [facility] Blood BLOOD SPECIMEN / Unknown Venipuncture / Unknown 11/27/2022 3:18 AM CDT 11/27/2022 3:34 AM CDT Neville Hewitt III, MD LAB - HEMATOLOGY ORDERABLES Performing Organization Address City/[facility]/ZIP Co de Phone Number [address] [address], [facility] [phone] * (ABNORMAL) GLUCOSE - POINT OF CARE (11/27/2022 3:16 AM CDT) Glucose WB/POC 117(H) 70 - 115 mg/dL 11/27/2022 4:26 AM CDT [facility] Specimen Type Venous 11/27/2022 4:26 AM CDT [facility] Blood BLOOD SPECIMEN / Unknown 11/27/2022 3:16 AM CDT 11/27/2022 4:26 AM CDT Stephen Witt MD LAB - POINT OF CARE ORDERABLES Performing Organization Address [facility]/ZIP Co de Phone Number [address] [address], [place] [phone] * (ABNORMAL) GLUCOSE - POINT OF CARE (11/27/2022 12:26 AM CDT) Glucose WB/POC 117(H) 70 - 115 mg/dL 11/27/2022 12:31 AM CDT [facility] Specimen Type Cap Fingerstick 2022 12:31 AM CDT [facility] Blood BLOOD SPECIMEN / Unknown 11/27/2022 12:26 AM CDT 11/27/2022 12:31 AM CDT Stephen Witt MD LAB - POINT OF CARE ORDERABLES [facility] [address] [place] [address], [facility] [phone] * (ABNORMAL) BLOOD GASES ART + COOX PANEL (11/26/2022 8:41 PM CDT) pH Arterial 7.48(H) 7.35 - 7.45 pH 11/26/2022 8:53 PM [facility] pO2 Arterial 123(H) 80 - 100 mmHg 11/26/2022 8:53 PM [facility] pCO2 Arterial 35 35 - 45 mmHg 8:53 PM [facility] HCO3 Arterial 26.1 20.0 - 30.0 mmol/L 11/26/2022 8:53 PM [facility] BE Arterial 2.8(H) -2.0 - 2.0 mmol/L 11/26/2022 8:53 PM [facility] Oxyhemoglobin Arterial 97.0 % 11/26/2022 8:53 PM [facility] Dexoyhemoglobin (HHB) % <1.0 % 11/26/2022 8:53 PM [facility] Methemoglobin 1.3 0.0 - 2.0 % 11/26/2022 8:53 PM [facility] Carboxyhemoglobin 1.6 0.0 - 2.0 % 2022 8:53 PM [facility] O2 Content Arterial 17.8 Interpret within clinical context ml/dL 11/26/2022 8:53 PM [facility] Hemoglobin by COOX 12.9 12.0 - 17.6 g/dL 11/26/2022 8:53 PM [facility] O2 Saturation Arterial 100 90 - 100 % 11/26/2022 8:53 PM [facility] FI O2 Arterial 30.0 % 11/26/2022 8:53 PM [facility] Blood, arterial ARTERIAL BLOOD SPECIMEN / Unknown Arterial Puncture / Unknown 11/26/2022 8:41 PM CDT 11/26/2022 8:48 PM [facility] - 11/26/2022 8:53 PM CDT Carboxyhemoglobin Normal Concentration: Non-smokers: 0-2%; Smokers: 0-9%; Toxic: >20% Neville Hewitt III, MD LAB - BLOOD GASE S ORDERABLES Performing Organization Address [facility] [[email or web address]] Co de Phone Number [facility] [address] [place] [address], [facility] [phone] * PROCALCITONIN LEVEL (11/26/2022 7:55 PM CDT) PROCALCITONIN <0.02 <=0.10 ng/mL 11/26/2022 9:35 PM CDT [facility] Blood BLOOD SPECIMEN / Unknown Venipuncture / Unknown 11/26/2022 7:55 PM CDT 11/26/2022 8:48 PM CDT [facility] - 11/26/2022 9:35 PM CDT The change in procalcitonin (PCT) [...] Change in Procalcitonin Calculator is available at [email or web address] ?? If clinical picture has not improved and PCT remains high, reevaluate and consider treatment failure or other causes. Neville Hewitt III, MD LAB - CHEMISTRY ORDERABLES Performing Organization Address [facility] de Phone Number [address] [address], [facility] [phone] * (ABNORMAL) CALCIUM IONIZED WHOLE BLOOD (11/26/2022 7:55 PM CDT) Calcium Ionized 1.35 mmol/L 11/26/2022 8:54 PM CDT [facility] pH 7.48(H) 7.35 - 7.45 pH 11/26/2022 8:54 PM CDT [facility] Ionized Calcium pH Adjusted 1.39(H) 1.19 - 1.34 mmol/L 11/26/2022 8:54 PM CDT [facility] Blood BLOOD SPECIMEN / Unknown Venipuncture / Unknown 11/26/2022 7:55 PM CDT 11/26/2022 8:48 PM CDT Neville Hewitt III, MD LAB - CHEMISTRY ORDERABLES Performing Organization Address [facility] de Phone Number [address] [address], [facility] [phone] * XR CHEST 1VW PORTABLE (11/26/2022 7:38 PM CDT) Anatomical Region Laterality Modality Chest Radiographic Cynthia ging 11/27/2022 5:08 AM CDT Narrative 11/27/2022 10:33 AM CDT PROCEDURE: ??XR CHEST 1VW PORTABLE, DATE/TIME OF EXAM: ??11/26/2022 7:39 PM, LOCATION ??[facility] INDICATION: R09.02: Hypoxia ADDITIONAL CLINICAL INFORMATION: Ordering Provider Reason For Exam: ??AoCHRF COMPARISON: Chest x-ray dated 11/24/2022 TECHNIQUE: Frontal radiograph of the chest. FINDINGS/IMPRESSION: Tracheostomy tube is stable in position. Interval improvement of previously reported complete collapse of the right lower lobe. Right lower lobe and retrocardiac airspace opacity could be due to pleural effusion and associated atelectasis. There is right-sided pleural effusion with associated atelectasis. Left costophrenic angle is not completely imaged. No pneumothorax is seen. The cardiomediastinal silhouette is again obscured on the right however appear to be normal. No acute osseous fracture is noted. Report dictated by Justin Burrell MD (resident medical officer). Shane Thomason DO have personally reviewed and interpreted this examination/study. > Interpreting Provider: Shane Mckenzie DO on 11/27/2022 10:33 AM Procedure Note Shane Mckenzie DO - 11/27/2022 PROCEDURE: XR CHEST 1VW PORTABLE, DATE/TIME OF EXAM: 11/26/2022 7:39PM, LOCATION [facility] INDICATION: R09.02: Hypoxia ADDITIONAL CLINICAL INFORMATION: Ordering Provider Reason For Exam: AoCHRF COMPARISON: Chest x-ray dated 11/24/2022 TECHNIQUE: Frontal radiograph of the chest. FINDINGS/IMPRESSION: Tracheostomy tube is stable in position. Interval improvement of previously reported complete collapse of theright lower lobe. Right lower lobe and retrocardiac airspace opacity could bedue to pleural effusion and associated atelectasis. There is right-sided pleural effusion with associated atelectasis. Left costophrenic angle is not completely imaged. No pneumothorax is seen. The cardiomediastinal silhouette is again obscured on the right however appear to be normal.No acute osseous fracture is noted. Report dictated by Justin Burrell MD (resident medical officer). Shane Thomason DO have personally reviewed and interpreted this examination/study. > Interpreting Provider: Shane Mckenzie DO on 11/27/2022 10:33 AM Neville Hewitt III, MD DIAGNOSTIC IMAGI NG ORDERABLES * EKG 12-LEAD (11/26/2022 6:55 PM CDT) Ventricular Rate 121 BPM [facility] MUSE Atrial Rate 121 BPM [facility] MUSE P-R Interval 130 ms [facility] MUSE QRS Duration ms 76 ms [facility] MUSE Q-T Interval ms 330 ms [facility] MUSE QTC Calculation (Bezet) 468 ms [facility] MUSE Calculated P [place] 81 degrees [facility] HOSPITAL MUSE Calculated R [place] -16 degrees [facility] MUSE Calculated T [place] 92 degrees [facility] MUSE Interpretation EKG SINUS TACHYCARDIA SEPTAL INFARCT , POSSIBLY ACUTE ACUTE AK / STEMI ABNORMAL ECG WHEN COMPARED WITH ECG OF 26-NOV-2022 14:50, VENT. RATE HAS INCREASED by 19 bpm Confirmed by RYANNE HARDEN MD ([id number]) on 11/28/2022 7:36:02 AM [facility] 11/26/2022 6:55 PM CDT 11/28/2022 7:36 AM CDT Neville Hewitt III, MD ECG ORDERABLES Performing Organization Address [facility] [[email or web address]] Co de Phone Number [facility] * TROPONIN-I HIGH SENSITIVE (11/26/2022 6:40 PM CDT) [facility] Troponin I High Sensitive 8 <=35 ng/L 11/26/2022 8:56 PM CDT [facility] Blood BLOOD SPECIMEN / Unknown Venipuncture / Unknown 11/26/2022 6:40 PM CDT 11/26/2022 6:44 PM CDT Neville Hewitt III, MD LAB - CHEMISTRY ORDERABLES Performing Organization Address City/[facility]/ZIP Co de Phone Number [facility] [address] [place] [phone], [facility] [phone] * (ABNORMAL) BLOOD GASES ART + COOX PANEL (11/26/2022 6:40 PM CDT) [facility] pH Arterial 7.48(H) 7.35 - 7.45 pH 11/26/2022 6:51 PM CDT [facility] pO2 Arterial 95 80 - 100 mmHg 11/26/2022 6:51 PM CDT [facility] pCO2 Arterial 34(L) 35 - 45 mmHg 6:51 PM [facility] HCO3 Arterial 25.3 20.0 - 30.0 mmol/L 11/26/2022 6:51 PM [facility] BE Arterial 2.1(H) -2.0 - 2.0 mmol/L 11/26/2022 6:51 PM [facility] Oxyhemoglobin Arterial 95.9 % 11/26/2022 6:51 PM [facility] Dexoyhemoglobin (HHB) % 1.4 % 11/26/2022 6:51 PM [facility] Methemoglobin 0.9 0.0 - 2.0 % 11/26/2022 6:51 PM [facility] Carboxyhemoglobin 1.8 0.0 - 2.0 % 2022 6:51 PM [facility] O2 Content Arterial 17.1 Interpret within clinical context ml/dL 11/26/2022 6:51 PM [facility] Hemoglobin by COOX 12.6 12.0 - 17.6 g/dL 11/26/2022 6:51 PM [facility] O2 Saturation Arterial 99 90 - 100 % 11/26/2022 6:51 PM [facility] FI O2 Arterial 30.0 % 11/26/2022 6:51 PM [facility] Blood, arterial ARTERIAL BLOOD SPECIMEN / Unknown Arterial Puncture / Unknown 11/26/2022 6:40 PM CDT 11/26/2022 6:42 PM [facility] - 11/26/2022 6:51 PM CDT Carboxyhemoglobin Normal Concentration: Non-smokers: 0-2%; Smokers: 0-9%; Toxic: >20% Neville Hewitt III, MD LAB - BLOOD GASE S ORDERABLES [address] [address], [facility] [phone] * PHOSPHORUS BLOOD (11/26/2022 6:40 PM CDT) [facility] Signature Phosphorus 3.5 2.8 - 5.1 mg/dL 11/26/2022 8:52 PM CDT [facility] Blood BLOOD SPECIMEN / Unknown Venipuncture / Unknown 11/26/2022 6:40 PM CDT 11/26/2022 6:44 PM CDT Neville Hewitt III, MD LAB - CHEMISTRY ORDERABLES Performing Organization Address City/[facility]/ZIP Co de Phone Number [address] [address], [facility] [phone] * MAGNESIUM BLOOD (11/26/2022 6:40 PM CDT) Magnesium 2.1 1.6 - 2.6 mg/dL 11/26/2022 8:52 PM CDT [facility] Blood BLOOD SPECIMEN / Unknown Venipuncture / Unknown 11/26/2022 6:40 PM CDT 11/26/2022 6:44 PM CDT Neville Hewitt III, MD LAB - CHEMISTRY ORDERABLES [address] [address], [facility] [phone] * (ABNORMAL) BASIC METABOLIC PANEL (CALCIUM TOTAL) (11/26/2022 6:40 PM CDT) BUN 10 7 - 26 mg/dL 11/26/2022 8:52 PM CDT [facility] Creatinine 0.41(L) 0.71 - 1.16 mg/dL 11/26/2022 8:52 PM CDT [facility] Sodium 139 136 - 145 mmol/L 11/26/2022 8:52 PM T [facility] Potassium 4.2 3.5 - 4.5 mmol/L 11/26/2022 8:52 PM T [facility] Chloride 109(H) 98 - 107 mmol/L 11/26/2022 8:52 PM T [facility] CO2 19(L) 22 - 29 mmol/L 11/26/2022 8:52 PM T [facility] Glucose 120(H) 70 - 115 mg/dL 11/26/2022 8:52 PM CDT [facility] Calcium 9.8 8.4 - 10.2 mg/dL 11/26/2022 8:52 PM [facility] Anion Gap 15 8 - 18 11/26/2022 8:52 PM [facility] BUN/Creatinine Ratio 24(H) 7 - 23 11/26/2022 8:52 PM [facility] Osmolality Calculated 288 270 - 300 mOsm/kg 11/26/2022 8:52 PM [facility] eGFR by CKD-EPI >90 >=90 mL/min/1.7 3 m2 11/26/2022 8:52 PM [facility] Blood BLOOD SPECIMEN / Unknown Venipuncture / Unknown 11/26/2022 6:40 PM CDT 11/26/2022 6:44 PM CDT Neville Hewitt III, MD LAB - CHEMISTRY ORDERABLES Performing Organization Address [facility] [[email or web address]] Co de Phone Number [address] [phone] [phone] * (ABNORMAL) CBC W AUTO DIFFERENTIAL (11/26/2022 6:40 PM CDT) WBC 17.4(H) 3.5 - 10.5 10? 3 /uL 11/26/2022 6:50 PM [facility] RBC 4.10(L) 4.30 - 5.70 10? 6 /uL 11/26/2022 6:50 PM [facility] Hemoglobin 12.5 12.0 - 17.6 g/dL 11/26/2022 6:50 PM [facility] Hematocrit 37.2 35.2 - 51.7 % 11/26/2022 6:50 PM [facility] MCV 90.7 80.7 - 98.3 fL 11/26/2022 6:50 PM [facility] MCH 30.5 26.7 - 34.0 pg 11/26/2022 6:50 PM [facility] MCHC 33.6 30.8 - 35.9 g/dL 11/26/2022 6:50 PM [facility] RDW-SD 50.4(H) 36.0 - 50.0 fL 11/26/2022 6:50 PM [facility] RDW-CV 15.6(H) 11.2 - 14.8 % 11/26/2022 6:50 PM [facility] Platelet Count 244 150 - 400 10? 3 /uL 11/26/2022 6:50 PM [facility] MPV 11.9 9.4 - 12.9 fL 11/26/2022 6:50 PM [facility] nRBC Absolute 0.00 0 10? 3 /uL 11/26/2022 6:50 PM [facility] nRBC Auto 0.0 0 /100 WBC 11/26/2022 6:50 PM [facility] Neutrophils % 75.9(H) 35.0 - 70.0 % 11/26/2022 6:50 PM [facility] Lymphocytes % 15.7(L) 20.0 - 43.0 % 11/26/2022 6:50 PM [facility] Monocytes % 6.6 5.0 - 13.0 % 11/26/2022 6:50 PM [facility] Eosinophils % 1.2 0.0 - 6.0 % 11/26/2022 6:50 PM [facility] Basophil % 0.1 0.0 - 2.0 % 11/26/2022 6:50 PM [facility] Neutrophils Absolute 13.21(H) 1.60 - 7.00 10? 3 /uL 11/26/2022 6:50 PM [facility] Lymphocyte Absolute 2.73 1.10 - 3.90 10? 3 /uL 11/26/2022 6:50 PM [facility] Monocytes Absolute 1.14(H) 0.26 - 1.07 10? 3 /uL 11/26/2022 6:50 PM [facility] Eosinophils Absolute 0.20 0.00 - 0.47 10? 3 /uL 11/26/2022 6:50 PM [facility] Basophils Absolute 0.02 0.00 - 0.08 10? 3 /uL 11/26/2022 6:50 PM [facility] Immature Granulocytes % 0.5 0.0 - 1.0 % 11/26/2022 6:50 PM CDT [facility] Immature Granulocytes Absolute 0.08 11/26/2022 6:50 PM CDT [facility] Blood BLOOD SPECIMEN / Unknown Venipuncture / Unknown 11/26/2022 6:40 PM CDT 11/26/2022 6:44 PM CDT Neville Hewitt III, MD LAB - HEMATOLOGY ORDERABLES [facility] [address] [place] [address], [facility] [phone] * CARDIAC EKG ORDER (11/26/2022 3:48 PM CDT) Narrative 11/26/2022 3:48 PM CDT Ordered by an unspecified provider. Scanned Document CARDIAC SERVICES ORD ERABLES * EKG 12-LEAD (11/26/2022 2:50 PM CDT) Ventricular Rate 102 BPM [facility] MUSE Atrial Rate 102 BPM [facility] MUSE P-R Interval 144 ms [facility] MUSE QRS Duration ms 86 ms [facility] MUSE Q-T Interval ms 340 ms [facility] MUSE QTC Calculation (Bezet) 443 ms [facility] MUSE Calculated P [place] 71 degrees [facility] MUSE Calculated R [place] 0 degrees [facility] MUSE Calculated T [place] 78 degrees [facility] MUSE Interpretation EKG SINUS TACHYCARDIA ANTEROSEPTAL INFARCT , AGE UNDETERMINED ST ELEVATION IN ANTEROSEPTAL LEADS ABNORMAL ECG WHEN COMPARED WITH ECG OF 24-NOV-2022 23:44, SERIAL CHANGES OF EVOLVING ANTEROSEPTAL INFARCT ST LESS ELEVATED IN ANTERIOR LEADS VENT. RATE HAS DECREASED by 14 bpm Confirmed by RYANNE HARDEN MD ([id number]) on 11/29/2022 1:04:03 PM [facility] MUSE 11/26/2022 2:50 PM CDT 11/29/2022 1:04 PM CDT Alden Hurtado MD ECG ORDERABLES [facility] MUSE * GLUCOSE - POINT OF CARE (11/26/2022 2:15 PM CDT) Pathologist [facility] Glucose WB/POC 98 70 - 115 mg/dL 11/27/2022 1:48 AM CDT [facility] Specimen Type Cap Fingerstick 2022 1:48 AM CDT [facility] Blood BLOOD SPECIMEN / Unknown 11/26/2022 2:15 PM CDT 11/27/2022 1:48 AM CDT Neville Hewitt III, MD LAB - POINT OF ARE ORDERABLES Performing Organization Address [facility] [[email or web address]] Co de Phone Number [facility] [address] [place] [address], [facility] [phone] * PATHOLOGY TISSUE (11/26/2022 12:26 PM CDT) Pathologist [facility] Case Report Surgical Pathology Report ? Case: [id number] ? Authorizing Provider: ??Alden Hurtado MD ?Collected: ? 11/26/2022 12:26 PM ? Ordering Location: ? [facility] 8S ACUTE ? Received: ?11/26/2022 03:05 PM ? Pathologist: ? Naa Meza MD ? Specimen: ?Nasal Contents, right nasal polyps ? 12/01/2022 9:19 AM [facility] Final Diagnosis Nasal contents, right polyp, excision (A): - Benign respiratory mucosa with mild acute and chronic inflammation 12/01/2022 9:19 AM [facility] Microscopic Description and Comment Sections demonstrate bone and polypoid fragments of sinonasal mucosa with lymphocytes, plasma cells and neutrophils. No eosinophils are appreciated. 12/01/2022 9:19 AM [facility] Clinical History The patient is a 62-year-old man with a history of dementia, seizures, chronic aspiration and Zenker's diverticulum status post diverticulectomy, chronic respiratory failure requiring tracheostomy who presented with blood in his trachea and was found to have epistaxis from a antrochoanal polyp. Operative procedure: Right maxillary antrostomy with polypectomy, and right anterior ethmoidectomy 12/01/2022 9:19 AM [facility] Gross Description The requisition and specimen(s) are identified with the patient's name Mojgan Tabor. Received in formalin, specimen A , are multiple marie, focally hemorrhagic, irregular tissue, cartilage, and bone fragments aggregating to 2.3 x 2.2 x 0.3 cm. Filtered through a biopsy bag and submitted in toto in A1 following decalcification./HARRIET 12/01/2022 9:19 AM [facility] Pathologist Location at [facility] 12/01/2022 9:19 AM [facility] Disclaimer The performance characteristics of all immunohistochemical and indirect immunofluorescence stains (if any) cited in this report were determined by the Histopathology Laboratory of [facility]. Some of these tests were developed by [...] attending (teaching) pathologist. 12/01/2022 9:19 AM CDT [facility] Embedded Images 12/01/2022 9:19 AM CDT [facility] Biopsy, Excision NASAL CONTENTS / Unknown 11/26/2022 12:26 PM CDT 11/26/2022 3:05 PM CDT Comment:Pre-op diagnosis: Polyp of right nasal cavity [J33.0] Alden Hurtado MD LAB - PATHOLOGY/CYTO LOGY ORDERABLES Performing Organization Address City/[facility]/ZIP Co de Phone Number [facility] [address] [place] [address], [facility] [phone] * GLUCOSE - POINT OF CARE (11/26/2022 8:19 AM CDT) Glucose WB/POC 105 70 - 115 mg/dL 11/26/2022 8:24 AM CDT [facility] Specimen Type Arterial 11/26/2022 8:24 AM CDT [facility] Blood BLOOD SPECIMEN / Unknown 11/26/2022 8:19 AM CDT 11/26/2022 8:24 AM CDT Germaine Nails MD LAB - POINT OF CARE ORDERABLES Performing Organization Address [facility]/ZIP Co de Phone Number [facility] [address] [place] [address], [facility] [phone] * GLUCOSE - POINT OF CARE (11/26/2022 4:58 AM CDT) Glucose WB/POC 93 70 - 115 mg/dL 11/26/2022 4:59 AM CDT [facility] Specimen Type Cap Fingerstick 2022 4:59 AM CDT [facility] Blood BLOOD SPECIMEN / Unknown 11/26/2022 4:58 AM CDT 11/26/2022 4:59 AM CDT Germaine Nails MD LAB - POINT OF CARE ORDERABLES [facility] [address] [place] [address], [facility] [phone] * MAGNESIUM BLOOD (11/26/2022 3:10 AM CDT) Pathologist [facility] Magnesium 1.6 1.6 - 2.6 mg/dL 11/26/2022 3:57 AM [facility] Blood BLOOD SPECIMEN / Unknown Venipuncture / Unknown 11/26/2022 3:10 AM CDT 11/26/2022 3:17 AM CDT Neville Hewitt III, MD LAB - CHEMISTRY ORDERABLES Performing Organization Address [facility]/ZIP Co de Phone Number [facility] [address] [place] [address], [facility] [phone] * (ABNORMAL) RENAL FUNCTION PANEL (11/26/2022 3:10 AM CDT) Pathologist [facility] BUN 11 7 - 26 mg/dL 11/26/2022 3:57 AM [facility] Creatinine 0.46(L) 0.71 - 1.16 mg/dL 11/26/2022 3:57 AM [facility] Sodium 140 136 - 145 mmol/L 11/26/2022 3:57 AM [facility] Potassium 4.0 3.5 - 4.5 mmol/L 11/26/2022 3:57 AM [facility] Chloride 108(H) 98 - 107 mmol/L 11/26/2022 3:57 AM [facility] CO2 26 22 - 29 mmol/L 11/26/2022 3:57 AM [facility] Glucose 91 70 - 115 mg/dL 11/26/2022 3:57 AM [facility] Albumin 2.6(L) 3.4 - 5.0 g/dL 11/26/2022 3:57 AM [facility] Calcium 10.0 8.4 - 10.2 mg/dL 11/26/2022 3:57 AM [facility] Phosphorus 3.4 2.8 - 5.1 mg/dL 11/26/2022 3:57 AM [facility] Anion Gap 10 8 - 18 11/26/2022 3:57 AM [facility] BUN/Creatinine Ratio 24(H) 7 - 23 11/26/2022 3:57 AM [facility] Osmolality Calculated 289 270 - 300 mOsm/kg 11/26/2022 3:57 AM [facility] eGFR by CKD-EPI >90 >=90 mL/min/1.7 3 m2 11/26/2022 3:57 AM [facility] Blood BLOOD SPECIMEN / Unknown Venipuncture / Unknown 11/26/2022 3:10 AM CDT 11/26/2022 3:17 AM T Neville Hewitt III, MD LAB - CHEMISTRY ORDERABLES [facility] [address] [place] [address], [facility] [phone] * (ABNORMAL) CBC W AUTO DIFFERENTIAL (11/26/2022 3:10 AM CDT) WBC 12.7(H) 3.5 - 10.5 10? 3 /uL 11/26/2022 3:24 AM [facility] RBC 4.09(L) 4.30 - 5.70 10? 6 /uL 11/26/2022 3:24 AM [facility] Hemoglobin 12.5 12.0 - 17.6 g/dL 11/26/2022 3:24 AM [facility] Hematocrit 37.9 35.2 - 51.7 % 11/26/2022 3:24 AM [facility] MCV 92.7 80.7 - 98.3 fL 11/26/2022 3:24 AM [facility] MCH 30.6 26.7 - 34.0 pg 11/26/2022 3:24 AM [facility] MCHC 33.0 30.8 - 35.9 g/dL 11/26/2022 3:24 AM [facility] RDW-SD 52.3(H) 36.0 - 50.0 fL 11/26/2022 3:24 AM [facility] RDW-CV 15.7(H) 11.2 - 14.8 % 11/26/2022 3:24 AM [facility] Platelet Count 194 150 - 400 10? 3 /uL 11/26/2022 3:24 AM [facility] MPV 12.2 9.4 - 12.9 fL 11/26/2022 3:24 AM [facility] nRBC Absolute 0.00 0 10? 3 /uL 11/26/2022 3:24 AM [facility] nRBC Auto 0.0 0 /100 WBC 11/26/2022 3:24 AM [facility] Neutrophils % 66.1 35.0 - 70.0 % 11/26/2022 3:24 AM [facility] Lymphocytes % 21.6 20.0 - 43.0 % 11/26/2022 3:24 AM [facility] Monocytes % 9.6 5.0 - 13.0 % 11/26/2022 3:24 AM [facility] Eosinophils % 2.1 0.0 - 6.0 % 11/26/2022 3:24 AM [facility] Basophil % 0.2 0.0 - 2.0 % 11/26/2022 3:24 AM [facility] Neutrophils Absolute 8.39(H) 1.60 - 7.00 10? 3 /uL 11/26/2022 3:24 AM [facility] Lymphocyte Absolute 2.74 1.10 - 3.90 10? 3 /uL 11/26/2022 3:24 AM [facility] Monocytes Absolute 1.22(H) 0.26 - 1.07 10? 3 /uL 11/26/2022 3:24 AM [facility] Eosinophils Absolute 0.27 0.00 - 0.47 10? 3 /uL 11/26/2022 3:24 AM [facility] Basophils Absolute 0.02 0.00 - 0.08 10? 3 /uL 11/26/2022 3:24 AM [facility] Immature Granulocytes % 0.4 0.0 - 1.0 % 11/26/2022 3:24 AM [facility] Immature Granulocytes Absolute 0.05 11/26/2022 3:24 AM [facility] Blood BLOOD SPECIMEN / Unknown Venipuncture / Unknown 11/26/2022 3:10 AM CDT 11/26/2022 3:17 AM CDT Neville Hewitt III, MD LAB - HEMATOLOGY ORDERABLES Performing Organization Address City/State/[facility] [[email or web address] Co de Phone Number [facility] [address] [place] [address], [facility] [phone] * (ABNORMAL) CBC W/O DIFFERENTIAL (11/26/2022 3:10 AM CDT) WBC 12.7(H) 3.5 - 10.5 10? 3 /uL 11/26/2022 3:24 AM [facility] RBC 4.09(L) 4.30 - 5.70 10? 6 /uL 11/26/2022 3:24 AM [facility] Hemoglobin 12.5 12.0 - 17.6 g/dL 11/26/2022 3:24 AM [facility] Hematocrit 37.9 35.2 - 51.7 % 11/26/2022 3:24 AM [facility] MCV 92.7 80.7 - 98.3 fL 11/26/2022 3:24 AM [facility] MCH 30.6 26.7 - 34.0 pg 11/26/2022 3:24 AM [facility] MCHC 33.0 30.8 - 35.9 g/dL 11/26/2022 3:24 AM [facility] RDW-SD 52.3(H) 36.0 - 50.0 fL 11/26/2022 3:24 AM [facility] RDW-CV 15.7(H) 11.2 - 14.8 % 11/26/2022 3:24 AM [facility] Platelet Count 194 150 - 400 10? 3 /uL 11/26/2022 3:24 AM [facility] MPV 12.2 9.4 - 12.9 fL 11/26/2022 3:24 AM [facility] nRBC Absolute 0.00 0 10? 3 /uL 11/26/2022 3:24 AM CDT [facility] nRBC Auto 0.0 0 /100 WBC 11/26/2022 3:24 AM CDT [facility] Blood BLOOD SPECIMEN / Unknown Venipuncture / Unknown 11/26/2022 3:10 AM CDT 11/26/2022 3:17 AM CDT Neville Hewitt III, MD LAB - HEMATOLOGY ORDERABLES [facility] [address] [place] [address], [place] [phone] * GLUCOSE - POINT OF CARE (11/26/2022 12:16 AM CDT) Glucose WB/POC 89 70 - 115 mg/dL 11/26/2022 12:17 AM CDT [facility] Specimen Type Cap Fingerstick 2022 12:17 AM CDT [facility] Blood BLOOD SPECIMEN / Unknown 11/26/2022 12:16 AM CDT 11/26/2022 12:17 AM CDT Germaine Nails MD LAB - POINT OF CARE ORDERABLES [facility] [address] [place] [address], [place] [phone] * GLUCOSE - POINT OF CARE (11/25/2022 6:52 PM CDT) Glucose WB/POC 106 70 - 115 mg/dL 11/25/2022 6:56 PM CDT [facility] Specimen Type Cap Fingerstick 2022 6:56 PM CDT [facility] Blood BLOOD SPECIMEN / Unknown 11/25/2022 6:52 PM CDT 11/25/2022 6:56 PM CDT Neville Hewitt III, MD LAB - POINT OF ARE ORDERABLES [facility] [address] [place] [address], [facility] [phone] * (ABNORMAL) MRSA DNA PCR (11/25/2022 10:22 AM CDT) MRSA DNA by PCR Detected( A) Not detected 11/25/2022 3:48 PM CDT [facility] MICROBIOLOGY Microbiology SPECIMEN FROM [facility] / Unknown Collection / Unknown 11/25/2022 10:22 AM CDT 11/25/2022 10:30 AM CDT Narrative [facility] MICROBIOLOG[facility] - 11/25/2022 3:48 PM CDT 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 Arthur Marinelli MD LAB - MICROBIOLOGY ORDERABLES [facility] MICROBIOLOGY [address] [place] [address], [facility] [phone] * CT SINUS WWO CONTRAST (11/25/2022 6:36 [...] comprehension and verification. > Dictated by Christian aYñez DO (resident medical officer). IJason MD have personally reviewed and interpreted [...] verification. > Dictated by Christian Yañez DO (resident medical officer). I, Jason Sanchez MD have personally reviewed [...] tube. > Dictated by Usman Arce MD, (resident medical officer). Ashwin Thomason MD have personally reviewed and interpreted this examination/study. > Interpreting Provider: Ashwin Read MD on 11/25/2022 11:20 AM Narrative 11/25/2022 11:20 AM CDT PROCEDURE: ??CT CHEST W CONTRAST, DATE/TIME OF EXAM: ??11/25/2022 6:37 AM, LOCATION ??[facility] INDICATION: R04.2: Hemoptysis ADDITIONAL CLINICAL INFORMATION: Ordering [...] abdominal organs are normal. Procedure Note Dianne Read MD - 11/25/2022 PROCEDURE: CT CHEST W CONTRAST, DATE/TIME OF EXAM: 11/25/2022 6:37 AM, LOCATION [facility] INDICATION: R04.2: Hemoptysis ADDITIONAL CLINICAL INFORMATION: Ordering [...] tracheostomytube. > Dictated by Usman Arce MD, (resident medical officer). Ashwin Thomason MD have personally reviewed and interpreted this examination/study. > Interpreting Provider: Ashwin Read MD on 11/25/2022 11:20 AM Arthur Marinelli MD CT ORDERABLES * MAGNESIUM BLOOD (11/25/2022 3:35 AM CDT) Pathologist [facility] Magnesium 1.7 1.6 - 2.6 mg/dL 11/25/2022 4:08 AM [facility] Blood BLOOD SPECIMEN / Unknown Venipuncture / Unknown 11/25/2022 3:35 AM CDT 11/25/2022 3:44 AM CDT Arthur Marinelli MD LAB - CHEMISTRY ORD ERABLES [facility] [address] [place] [address], [facility] [phone] * (ABNORMAL) COMPREHENSIVE METABOLIC PANEL (11/25/2022 3:35 AM CDT) BUN 16 7 - 26 mg/dL 11/25/2022 4:08 AM [facility] Creatinine 0.45(L) 0.71 - 1.16 mg/dL 11/25/2022 4:08 AM [facility] Sodium 138 136 - 145 mmol/L 11/25/2022 4:08 AM [facility] Potassium 4.5 3.5 - 4.5 mmol/L 11/25/2022 4:08 AM [facility] Chloride 108(H) 98 - 107 mmol/L 11/25/2022 4:08 AM [facility] CO2 26 22 - 29 mmol/L 11/25/2022 4:08 AM [facility] Glucose 91 70 - 115 mg/dL 11/25/2022 4:08 AM [facility] Calcium 9.5 8.4 - 10.2 mg/dL 11/25/2022 4:08 AM [facility] Protein Total 6.9 6.0 - 8.3 g/dL 11/25/2022 4:08 AM [facility] Albumin 2.6(L) 3.4 - 5.0 g/dL 11/25/2022 4:08 AM [facility] Bilirubin Total 0.2 0.2 - 1.2 mg/dL 11/25/2022 4:08 AM [facility] Alkaline Phosphatase 85 40 - 150 U/L 11/25/2022 4:08 AM [facility] ALT 24 5 - 55 U/L 11/25/2022 4:08 AM [facility] AST 24 5 - 34 U/L 11/25/2022 4:08 AM [facility] Anion Gap 9 8 - 18 11/25/2022 4:08 AM [facility] BUN/Creatinine Ratio 36(H) 7 - 23 11/25/2022 4:08 AM [facility] Osmolality Calculated 287 270 - 300 mOsm/kg 11/25/2022 4:08 AM [facility] Albumin/Globulin Ratio 0.6(L) 1.1 - 2.3 11/25/2022 4:08 AM [facility] eGFR by CKD-EPI >90 >=90 mL/min/1.7 3 m2 11/25/2022 4:08 AM [facility] Blood BLOOD SPECIMEN / Unknown Venipuncture / Unknown 11/25/2022 3:35 AM CDT 11/25/2022 3:44 AM CDT Arthur Marinelli MD LAB - CHEMISTRY ORD ERABLES [facility] [address] [place] [address], [facility] [phone] * TYPE + SCREEN PANEL (11/25/2022 12:15 AM CDT) Antibody Screen NEG 1:17 AM CDT [facility] BLOOD BANK LAB ABO Rh O POS 11/25/2022 1:17 AM CDT [facility] BLOOD BANK LAB Blood Bank BLOOD SPECIMEN / Unknown Venipuncture / Unknown 11/25/2022 12:15 AM CDT 11/25/2022 12:21 AM CDT Arthur Marinelli MD LAB - BLOOD BANK OR DERABLES [facility] BLOOD BANK LAB [address] [place] [address], [facility] [phone] * URINALYSIS REFLEX MICROSCOPIC REFLEX CULTURE (11/25/2022 12:05 AM CDT) Color UA Yellow Straw, Yellow 11/25/2022 12:16 AM CDT [facility] Clarity UA Clear Clear 11/25/2022 12:16 AM CDT [facility] Specific [place] UA 1.009 1.005 - 1.030 11/25/2022 12:16 AM CDT [facility] pH UA 8.0 5.0 - 8.0 pH 11/25/2022 12:16 AM CDT [facility] Protein UA Negative Negative 11/25/2022 12:16 AM CDT [facility] Glucose UA Negative Negative 11/25/2022 12:16 AM CDT [facility] Ketone UA Negative Negative 11/25/2022 12:16 AM CDT [facility] Bilirubin UA Negative Negative 11/25/2022 12:16 AM CDT [facility] Blood UA Negative Negative 11/25/2022 12:16 AM CDT [facility] Nitrite UA Negative Negative 11/25/2022 12:16 AM T [facility] Leukocyte Esterase Negative Negative 11/25/2022 12:16 AM T [facility] Urobilinogen UA Negative Negative mg/dL 11/25/2022 12:16 AM T [facility] Comment UA Microscopic not indicated. 11/25/2022 12:16 AM T [facility] Urine URINE SPECIMEN OBTAINED BY CLEAN CATCH PROCEDURE / Unknown Collection / Unknown 11/25/2022 12:05 AM CDT 11/25/2022 12:10 AM CDT Narrative [facility] - 11/25/2022 12:16 AM CDT Arthur Marinelli MD LAB - URINALYSIS OR DERABLES [facility] [address] [place] [address], [facility] [phone] * XR CHEST 1VW PORTABLE (11/24/2022 11:59 PM CDT) Anatomical Region Laterality Modality Chest Radiographic Cynthia ging 11/25/2022 12:1 1 AM CDT Narrative 11/25/2022 11:25 AM CDT PROCEDURE: ??XR CHEST 1VW PORTABLE, DATE/TIME OF EXAM: ??11/24/2022 11:59 PM, LOCATION ??[facility] INDICATION: R04.2: Hemoptysis ADDITIONAL CLINICAL INFORMATION: Ordering Provider Reason For Exam: ??hemoptysis and trach bleeding COMPARISON: Chest radiograph 10/16/2022, CT angiogram chest pulmonary embolism 09/07/2022. FINDINGS/IMPRESSION: A tracheostomy tube terminates within the mid thoracic trachea. There is complete collapse of the right middle lobe and complete collapse of the right lower lobe. There is resulting rightward mediastinal shift. An abrupt cut off within the right mainstem bronchus may represent mucous plug or other debris. There is mild atelectasis at the left base. There is no evidence of pneumothorax or pleural effusion. The cardiomediastinal silhouette is obscured on the right. The visible bony thorax is intact. Report dictated by Scar Oliveira MD (resident medical officer). I, Rachle Phillips MD have personally reviewed and interpreted this examination/study. > Interpreting Provider: Rachel Phillips MD on 11/25/2022 11:25 AM Procedure Note Rachel Phillips MD - 11/25/2022 PROCEDURE: XR CHEST 1VW PORTABLE, DATE/TIME OF EXAM: 11/24/2022 11:59PM, LOCATION [facility] INDICATION: R04.2: Hemoptysis ADDITIONAL CLINICAL INFORMATION: Ordering Provider Reason For Exam: hemoptysis and trach bleeding COMPARISON: Chest radiograph 10/16/2022, CT angiogram chest pulmonary embolism 09/07/2022. FINDINGS/IMPRESSION: A tracheostomy tube terminates within the mid thoracic trachea. There is complete collapse of the right middle lobe and completecollapse of the right lower lobe. There is resulting rightward mediastinal shift.An abrupt cut off within the right mainstem bronchus may represent mucousplug or other debris. There is mild atelectasis at the left base. There is no evidence of pneumothorax or pleural effusion. The cardiomediastinal silhouette is obscured on the right. The visible bony thorax is intact. Report dictated by Scar Oliveira MD (resident medical officer). I, Rachel Phillips MD have personally reviewed and interpreted this examination/study. > Interpreting Provider: Rachel Phillips MD on 11/25/2022 11:25 AM Arthur Marinelli MD DIAGNOSTIC IMAGING ORDERABLES * (ABNORMAL) CBC W AUTO DIFFERENTIAL (11/24/2022 11:47 PM CDT) WBC 10.5 3.5 - 10.5 10? 3 /uL 11/25/2022 12:02 AM [facility] RBC 3.75(L) 4.30 - 5.70 10? 6 /uL 11/25/2022 12:02 AM [facility] Hemoglobin 11.5(L) 12.0 - 17.6 g/dL 11/25/2022 12:02 AM [facility] Hematocrit 35.9 35.2 - 51.7 % 11/25/2022 12:02 AM [facility] MCV 95.7 80.7 - 98.3 fL 11/25/2022 12:02 AM [facility] MCH 30.7 26.7 - 34.0 pg 11/25/2022 12:02 AM [facility] MCHC 32.0 30.8 - 35.9 g/dL 11/25/2022 12:02 AM [facility] RDW-SD 54.8(H) 36.0 - 50.0 fL 11/25/2022 12:02 AM [facility] RDW-CV 15.9(H) 11.2 - 14.8 % 11/25/2022 12:02 AM [facility] Platelet Count 225 150 - 400 10? 3 /uL 11/25/2022 12:02 AM [facility] MPV 12.2 9.4 - 12.9 fL 11/25/2022 12:02 AM [facility] nRBC Absolute 0.04(H) 0 10? 3 /uL 11/25/2022 12:02 AM [facility] nRBC Auto 0.4(H) 0 /100 WBC 11/25/2022 12:02 AM [facility] Neutrophils % 64.3 35.0 - 70.0 % 11/25/2022 12:02 AM [facility] Lymphocytes % 21.5 20.0 - 43.0 % 11/25/2022 12:02 AM [facility] Monocytes % 9.7 5.0 - 13.0 % 11/25/2022 12:02 AM [facility] Eosinophils % 3.6 0.0 - 6.0 % 11/25/2022 12:02 AM [facility] Basophil % 0.3 0.0 - 2.0 % 11/25/2022 12:02 AM [facility] Neutrophils Absolute 6.75 1.60 - 7.00 10? 3 /uL 11/25/2022 12:02 AM [facility] Lymphocyte Absolute 2.26 1.10 - 3.90 10? 3 /uL 11/25/2022 12:02 AM [facility] Monocytes Absolute 1.02 0.26 - 1.07 10? 3 /uL 11/25/2022 12:02 AM [facility] Eosinophils Absolute 0.38 0.00 - 0.47 10? 3 /uL 11/25/2022 12:02 AM [facility] Basophils Absolute 0.03 0.00 - 0.08 10? 3 /uL 11/25/2022 12:02 AM [facility] Immature Granulocytes % 0.6 0.0 - 1.0 % 11/25/2022 12:02 AM [facility] Immature Granulocytes Absolute 0.06 11/25/2022 12:02 AM [facility] Blood BLOOD SPECIMEN / Unknown Venipuncture / Unknown 11/24/2022 11:47 PM CDT 11/24/2022 11:55 PM CDT Arthur Marinelli MD LAB - HEMATOLOGY OR DERABLES [facility] [address] [place] [address], [facility] [phone] * EKG 12-LEAD (11/24/2022 11:44 PM CDT) Ventricular Rate 116 BPM [facility] MUSE Atrial Rate 116 BPM [facility] MUSE P-R Interval 150 ms [facility] MUSE QRS Duration ms 78 ms [facility] MUSE Q-T Interval ms 306 ms [facility] MUSE QTC Calculation (Bezet) 425 ms [facility] MUSE Calculated P [place] 54 degrees SL MUSE Calculated R [place] 5 degrees SL MUSE Calculated T [place] 67 degrees [facility] MUSE Interpretation EKG SINUS TACHYCARDIA ST ELEVATION, CONSIDER EARLY REPOLARIZATION , PERICARDITIS, OR INJURY Early ??transition ABNORMAL ECG WHEN COMPARED WITH ECG OF 09-OCT-2022 10:59, VENT. RATE HAS DECREASED by [address] LESS ELEVATED IN ANTERIOR LEADS CRITERIA FOR ANTERIOR INFARCT ARE NO LONGER PRESENT Confirmed by RYANNE HARDEN MD ([id number]) on 11/26/2022 1:23:14 PM [facility] MUSE 11/24/2022 11:4 4 PM CDT 11/26/2022 1:23 PM CDT Arthur Marinelli MD ECG ORDERABLES [facility] MUSE documented in this encounter Visit Diagnoses Diagnosis Delayed gastric emptying- Primary Dyspepsia and other specified disorders of function of stomach Hemoptysis Nasal polyp Unspecified nasal polyp Pneumonia of right lung due to infectious organism, unspecified part of lung Tracheostomy in place (HCC) Tracheostomy status Polyp of right nasal cavity Status epilepticus (HCC) Epileptic grand mal status Paroxysmal tachycardia, unspecified (HCC) Paroxysmal tachycardia, unspecified Sinus tachycardia Other specified cardiac dysrhythmias Ventricular tachycardia (HCC) Paroxysmal ventricular tachycardia Hypoxia Hypoxemia Essential (primary) hypertension Unspecified essential hypertension V-tach (HCC) Paroxysmal ventricular tachycardia Uncontrolled hypertension PEG (percutaneous endoscopic gastrostomy) status (HCC) Aspiration pneumonitis (HCC) Pneumonitis due to inhalation of food or vomitus Protein-calorie malnutrition, unspecified severity (HCC) History of stroke Transient ischemic attack (TIA), and cerebral infarction without residual deficits PEG (percutaneous endoscopic gastrostomy) adjustment/replacement/removal (HCC) Attention to gastrostomy COVID-19 Nasal polyp Unspecified nasal polyp Hemoptysis History of CVA (cerebrovascular accident) Transient ischemic attack (TIA), and cerebral infarction without residual deficits Seizure disorder (HCC) Unspecified epilepsy without mention of intractable epilepsy Dementia, vascular (HCC) Vascular dementia, uncomplicated Acute on chronic respiratory failure with hypoxia (HCC) Acute blood loss anemia Acute posthemorrhagic anemia PEG (percutaneous endoscopic gastrostomy) status (HCC) Tracheostomy in place (HCC) Tracheostomy status Sinus tachycardia Other specified cardiac dysrhythmias V-tach (HCC) Paroxysmal ventricular tachycardia Uncontrolled hypertension Severe protein-calorie malnutrition (HCC) Other severe protein-calorie malnutrition Chronic respiratory failure with hypoxia (HCC) Chronic respiratory failure documented in this encounter Administered Medications Inactive Administered Medications - up to 3 most recent administrations Medication Order [facility] Action Action Date Dose Rate Site 0.9% NaCl injection 1-10 mL 1-10 mL, Intracatheter, PRN, Other, peripheral line flush, Starting on Marian 11/25/22 at 1112, Until Marian 12/16/22 at 2245, Flush peripheral IV catheter with 1-10 mL of normal saline before and after medications and prn to clear blood from the line or to verify patency. $ Given 12/06/2022 6:44 PM CDT 3 mL $ Given 12/06/2022 12:12 PM CDT 3 mL $ Given 12/05/2022 11:54 AM CDT 3 mL 0.9% NaCl injection 3 mL 3 mL, Intracatheter, EVERY 8 HOURS, First dose on Marian 11/25/22 at 1400, Until Discontinued, Flush peripheral IV catheter with 3 mL of normal saline every 8 hours. $ Given 12/16/2022 2:46 PM CDT 3 mL $ Given 12/16/2022 5:34 AM CDT 3 mL $ Given 12/15/2022 8:28 PM CDT 3 mL acetaminophen (Tylenol) tablet 500 mg 500 mg, Enteral Tube, EVERY 6 HOURS PRN, Moderate Pain, Starting on 12/04/22 at 1012, Until 12/07/22 at 0905, Patient preference for lesser PRN pain meds may be honored when the patient requests a less strong medication, a lower dose, or a less intrusive route of administration when the lesser drug, dose and route have been ordered for the patient. This patient request must be documented in the MAR. $ Given 12/07/2022 7:29 AM CDT 500 mg G Tube acetaminophen (Tylenol) tablet 650 mg 650 mg, Enteral Tube, EVERY 4 HOURS PRN, Mild Pain, Moderate Pain, Starting on Tue12/12/22 at 0828, Until Tue12/16/22 at 2245, Patient preference for lesser PRN pain meds may be honored when the patient requests a less strong medication, a lower dose, or a less intrusive route of administration when the lesser drug, dose and route have been ordered for the patient. This patient request must be documented in the MAR. $ Given 12/12/2022 11:41 AM CDT 650 mg G Tu be artificial tears ophthalmic ointment Each Eye, EVERY 8 HOURS, First dose on Tue11/25/22 at 1400, Until Discontinued $ Given 11/26/2022 5:42 AM CDT $ Given 11/25/2022 11:16 PM CDT $ Given 11/25/2022 1:11 PM CDT artificial tears ophthalmic ointment Each Eye, EVERY 8 HOURS, First dose on Tue11/26/22 at 2200, Until Discontinued $ Given 12/06/2022 5:37 AM CDT $ Given 12/05/2022 8:13 PM CDT $ Given 12/05/2022 2:00 PM CDT aspirin chew tablet 81 mg 81 mg, Enteral Tube, DAILY, First dose on Tue12/15/22 at 0900, Until Discontinued $ Given 12/16/2022 10:54 AM CDT 81 mg J Tu be $ Given 12/15/2022 9:11 AM CDT 81 mg J Tube atorvastatin (Lipitor) tablet 40 mg 40 mg, Enteral Tube, AT BEDTIME, First dose on Tue11/25/22 at 2100, Until Discontinued $ Given 12/15/2022 8:08 PM CDT 40 mg G Tub e $ Given 12/14/2022 9:21 PM CDT 40 mg G Tube $ Given 12/13/2022 9:28 PM CDT 40 mg G Tube cefepime (Maxipime) 2,000 mg in 0.9% NaCl IV 50 mL IVPB 2,000 mg (2 g), at 100 mL/hr, Intravenous, EVERY 8 HOURS, 21 doses, First dose on Tue11/28/22 at 1400, Last dose on Tue12/05/22 at 0600, Indication for anti-infective therapy: Suspected infection, Site of anti-infective therapy: Lower Respiratory Current Rate 11/28/2022 2:24 PM CDT 100 mL/hr $ New Bag/Syringe 11/28/2022 2:24 PM CDT 2,000 mg 100 mL /hr cefepime (Maxipime) 2,000 mg in 0.9% NaCl IV 50 mL IVPB 2,000 mg (2 g), at 100 mL/hr, Intravenous, EVERY 8 HOURS, 18 doses, First dose on Tue12/01/22 at 1100, Last dose on Tue12/07/22 at 0300, Indication for anti-infective therapy: Documented infection, Site of anti-infective therapy: Lower Respiratory $ New Bag/Syringe 12/07/2022 2:30 AM CDT 2,000 mg 100 mL/hr Current Rate 12/06/2022 6:53 PM CDT 100 mL/hr $ New Bag/Syringe 12/06/2022 6:44 PM CDT 2,000 mg 100 mL /hr cefTRIAXone (Rocephin) 2,000 mg in 0.9% NaCl IV 50 mL IVPB 2,000 mg (2 g), at 100 mL/hr, Intravenous, EVERY 24 HOURS, First dose on Tue11/25/22 at 0500, Until Discontinued, Ceftriaxone can cause precipitation when administered with calcium-containing fluids, including LR. Flush lines with a compatible fluid, such as D5W or NS before and after ceftriaxone dose. Admin through separate lumens is acceptable. , Indication for anti-infective therapy: Suspected infection, Site of anti-infective therapy: Upper Respiratory, Lower Respiratory $ New Bag/Syringe 11/25/2022 4:58 AM CDT 2,000 mg 100 mL/hr chlorhexidine (Peridex) 0.12 % oral solution 15 mL 15 mL, Mouth/Throat, 2 TIMES DAILY, First dose on Tue11/26/22 at 2100, Until Discontinued, Swab oral mucosa for 30 seconds. Do not brush teeth immediately after use. . WASTE DISPOSAL INSTRUCTIONS: Black Bin Disposal required. $ Given 12/06/2022 9:11 AM CDT 15 mL $ Given 12/05/2022 8:12 PM CDT 15 mL $ Given 12/05/2022 9:33 AM CDT 15 mL cloBAZam (Onfi) tablet 20 mg 20 mg, Enteral Tube, 2 TIMES DAILY, First dose on Tue11/25/22 at 2100, Until Discontinued $ Given 12/16/2022 10:53 AM CDT 20 mg J Tube $ Given 12/15/2022 8:08 PM CDT 20 mg G Tube $ Given 12/15/2022 9:12 AM CDT 20 mg J Tube dexmedeTOMIDine (Precedex) 400 mcg in 100 mL NS infusion premix 0-1.5 mcg/kg/hr ? 68.6 kg (0-25.725 mL/hr, rounded to 0-25.73 mL/hr), Intravenous, CONTINUOUS, Starting on Marian 12/02/22 at 0200, Until Tue12/03/22 at 1454, Above RASS goal: Assess and treat pain first if CPOT greater than 2. If agitation persists Increase rate per order. At RASS goal and [...] to targeting RASS goal with the sedative. Hold medication and call physician if HR less than 40 bpm, Titration Parameters: Standard Parameters, Indication: Sedation, Initiate infusion at: 0.2 mcg/kg/hr, Titrate infusion by: 0.1 mcg/kg/hr, Titrate every: 30 minutes, Notify physician if: Unachievable RASS goal despite max dose, Titration Priority: 1st Rate Change 12/02/2022 9:44 AM CDT 0.1 mcg/kg/hr 1.72 mL/hr Rate Change 12/02/2022 7:58 AM CDT 0.2 mcg/kg/hr 3.43 mL/h r Current Rate 12/02/2022 6:57 AM CDT 0.3 mcg/kg/hr 5.15 mL/ hr dextrose 5 % and lactated ringers infusion at 100 mL/hr, Intravenous, CONTINUOUS, Starting on Tue12/07/22 at 2015, Until Tue12/08/22 at 0614 $ New Bag/Syringe 12/07/2022 10:03 PM CDT 100 mL/hr dextrose 5 % and lactated ringers infusion at 50 mL/hr, Intravenous, CONTINUOUS, Starting on Tue12/08/22 at 1300, Until Tue12/08/22 at 1637 $ New Bag/Syringe 12/08/2022 1:16 PM CDT 50 mL/hr dextrose 5 % and lactated ringers infusion at 20 mL/hr, Intravenous, CONTINUOUS, Starting on Tue12/09/22 at 1400, Until Tue12/09/22 at 1516 $ New Bag/Syringe 12/09/2022 2:00 PM CDT 20 mL/hr dextrose 5 % and lactated ringers infusion at 50 mL/hr, Intravenous, CONTINUOUS, Starting on Tue12/13/22 at 1815, Until Tue12/14/22 at 0754 Current Rate 12/14/2022 5:44 AM CDT 50 mL/hr Current Rate 12/14/2022 5:43 AM CDT 50 mL/hr Restarted 12/13/2022 9:22 PM CDT 50 mL/hr dextrose 5 % and lactated ringers infusion at 50 mL/hr, Intravenous, CONTINUOUS, Starting on Tue12/14/22 at 0800, Until Tue12/14/22 at 0907 *Current Bag - New Order 12/14/2022 8:15 AM CDT 50 mL/hr dextrose 5 % and lactated ringers infusion at 100 mL/hr, Intravenous, CONTINUOUS, Starting on Tue12/14/22 at 0915, Until Tue12/14/22 at 1514 *Current Bag - New Order 12/14/2022 9:32 AM CDT 100 mL/hr dextrose 5 % infusion at 50 mL/hr, Intravenous, CONTINUOUS, Starting on Tue12/10/22 at 1145, Until Tue12/10/22 at 1625, Glucose Accucheck q4 hours. $ New Bag/Syringe 12/10/2022 12:00 PM CDT 50 mL/hr divalproex sprinkle (Depakote Sprinkle) capsule 500 mg 500 mg, Enteral Tube, EVERY 6 HOURS, First dose on Tue11/25/22 at 1315, Until Discontinued, Do not crush or chew sprinkle beads. $ Given 12/16/2022 6:34 PM CDT 500 mg J Tube $ Given 12/16/2022 2:42 PM CDT 500 mg J Tube $ Given 12/16/2022 5:36 AM CDT 500 mg G Tube enoxaparin (Lovenox) injection 40 mg 40 mg, Subcutaneous, DAILY, First dose on Tue12/07/22 at 0945, Until Discontinued, (for prefilled syringes) do not expel air bubble from the syringe prior to the injection Remind Patient to not rub injection site. Could cause hematoma. $ Given 12/08/2022 10:23 AM CDT 40 mg Abd Left Upper Quadr ant $ Given 12/07/2022 10:52 AM CDT 40 mg A bd Right Lower Quadrant esmolol (Brevibloc) 2,500 mg in 250 mL infusion 0-200 mcg/kg/min ? 69.9 kg (0-83.88 mL/hr), Intravenous, CONTINUOUS, Starting on Tue11/27/22 at 1215, Until Tue12/01/22 at 0839, Titration Parameters: Standard Parameters, Indication: Hypertension, Tachycardia, Initiate infusion at: 50 mcg/kg/min, Titrate infusion by: 50 mcg/kg/min, Titrate every: 2 minutes, To maintain a: SBP < 180 mmHg, Notify physician if: SBP greater than 180 mmHg despite max dose Current Rate 11/28/2022 6:05 PM CDT 50 mcg/kg/min 20.97 mL/hr Current Rate 11/28/2022 3:54 PM CDT 50 mcg/kg/min 20.97 mL /hr $ New Bag/Syringe 11/28/2022 1:29 PM CDT 50 mcg/kg/min 20. 97 mL/hr esmolol (Brevibloc) bolus from infusion bag 34,950 mcg 34,950 mcg (500 mcg/kg ? 69.9 kg), Intravenous, BOLUS FROM BAG ONCE, 1 dose, On 11/27/22 at 1215 Bolus From Bag 11/27/2022 12:20 PM CDT 34,950 mcg famotidine (Pepcid) tablet 20 mg 20 mg, Oral, 2 TIMES DAILY, First dose on Tue11/26/22 at 2100, Until Discontinued $ Given 11/26/2022 9:12 PM CDT 20 mg famotidine (Pepcid) tablet 20 mg 20 mg, Enteral Tube, 2 TIMES DAILY, First dose (after last modification) on Tue11/27/22 at 0900, Until Discontinued $ Given 12/03/2022 8:15 AM CDT 20 mg G Tube $ Given 12/02/2022 8:03 PM CDT 20 mg G Tube $ Given 12/02/2022 9:34 AM CDT 20 mg G Tube fentaNYL (PF) (Sublimaze) injection 50 mcg 50 mcg, Intravenous, EVERY 10 MIN PRN, Moderate Pain, 4 doses, Starting on Tue11/26/22 at 1332, Until Tue11/26/22 at 1748, Maximum total of 4 doses. If patient reaches max total dose, please consult anesthesiologist prior to further administration of pain meds. Hold pain meds if there are signs of hypoventilation. Patient preference for lesser PRN pain meds may be honored when the patient requests a less strong medication, a lower dose, or a less intrusive route of administration when the lesser drug, dose and route have been ordered for the patient. This patient request must be documented in the MAR., PACU $ Given 11/26/2022 4:37 PM CDT 50 mcg $ Given 11/26/2022 4:20 PM CDT 50 mcg fentaNYL (PF) (Sublimaze) injection 50 mcg 50 mcg, Intravenous, EVERY 1 HOUR PRN, Moderate Pain, Severe Pain, Starting on Tue11/26/22 at 2131, Until Tue12/06/22 at 1450, Patient preference for lesser PRN pain meds may be honored when the patient requests a less strong medication, a lower dose, or a less intrusive route of administration when the lesser drug, dose and route have been ordered for the patient. This patient request must be documented in the MAR. $ Given 12/01/2022 11:29 PM CDT 50 mcg $ Given 11/27/2022 3:05 AM CDT 50 mcg $ Given 11/26/2022 11:18 PM CDT 50 mcg fentaNYL 2500 mcg/50mL (Sublimaze) infusion 0-100 mcg/hr (0-2 mL/hr), Intravenous, CONTINUOUS, Starting on 11/27/22 at 1130, Until 12/01/22 at 0839, Above CPOT goal: bolus every 5 minutes until goal CPOT then increase rate per order. Can give bolus before anticipated painful stimuli. Contact physician if unable to achieve CPOT goal after administering 4 boluses. At CPOT goal and no change in 4 hours: Decrease rate per order If significant hemodynamic changes, notify physician for instructions. Notify physician for inability to reach goals despite maximal dosage. If a sedative is ordered, titrate/administer opioid first to achieve CPOT goal, followed by titration/administration of sedative to achieve RASS goal., Titration Parameters: Analgesia, Indication: Analgesia, Initiate infusion at: 25 mcg/hr, Titrate infusion by: 25 mcg/hr, Titrate every: 5 minutes, Notify physician if: Unachievable CPOT goal despite max dose Current Rate 11/29/2022 5:53 AM CDT 25 mcg/hr 0.5 mL/hr Current Rate 11/29/2022 3:26 AM CDT 25 mcg/hr 0.5 mL/hr Current Rate 11/29/2022 2:37 AM CDT 25 mcg/hr 0.5 mL/hr folic acid (Folvite) tablet 1 mg 1 mg, Enteral Tube, DAILY, First dose on Marian 11/25/22 at 1315, Until Discontinued $ Given 12/16/2022 10:54 AM CDT 1 mg J Tu be $ Given 12/15/2022 9:11 AM CDT 1 mg J Tube $ Given 12/14/2022 9:33 AM CDT 1 mg G Tube glucagon (Glucagen) injection 1 mg 1 mg, Subcutaneous, PRN, Bedside Glucose less than 70 mg/dL - If NOT able to eat and/or NPO and withOUT IV Access, Starting on Marian 11/25/22 at 1736, Until Marian 12/16/22 at 2245, If NOT able to eat and/or NPO and NO IV Access: For Bedside glucose 54-69 mg/dL - Give 1 mg subcutaneous For Bedside Glucose LESS than 54 mg/dl - verify with a second bedside glucose (from a different site) - Give 1 mg subcutaneous Re-check and Re-treat blood glucose EVERY 10-25 minutes until blood glucose GREATER than or equal to 80 mg/dl. NOTIFY PROVIDER OF HYPOGLYCEMIC EVENT. Reconstitute vial with 1 mL of sterile water for injection for a final concentration of 1 mg/mL; shake vial gently; use immediately and discard unused portion glucose (Diabetic Use) (Dex4 Glucose) oral liquid Oral, PRN, Other, Bedside Glucose less than 70 mg/dL -If able to eat and does not have swallowing difficulties, Starting on Marian 11/25/22 at 1736, Until Marian 12/16/22 at 2245, If able to eat and can swallow thin liquids: For Bedside Glucose 54 - 69 mg/dL Give 15 grams of oral carbohydrates - 1 glucose liquid (see MAR) If patient refuses glucose liquid, then offer: - 4 ounces of fruit juice OR - 4 ounces non-diet soda OR - 8 ounces of fat-free milk For Bedside Glucose LESS than 54 mg/dL - verify with a second Bedside Glucose (from a different site) - If pt is symptomatic, do not delay treatment - If accuracy of the POC glucose is in question, confirm glucose with a STAT laboratory test. Give 30 grams of oral carbohydrates - 2 glucose liquid (see MAR) If patient refuses glucose liquid, then offer: - 8 ounces of fruit juice OR - 8 ounces non-diet soda OR - 16 ounces of fat-free milk Re-check and Re-treat blood glucose EVERY 10-25 minutes until blood glucose GREATER than or equal to 80 mg/dl. - If on recheck, bedside glucose 54-79 mg/dL - Give 15 grams of oral carbohydrates (see above for choices) NOTIFY PROVIDER OF HYPOGLYCEMIC EVENT. glucose (Diabetic Use) oral gel Oral, PRN, Other, Bedside Glucose less than 70 mg/dL -If able to eat and does not have swallowing difficulties, Starting on Marian 11/25/22 at 1736, Until Marian 12/16/22 at 2245, If able to eat and is better able to swallow gel: For Bedside Glucose 54 - 69 mg/dL [...] for choices) NOTIFY PROVIDER OF HYPOGLYCEMIC EVENT. glucose chew tablet 4 tablet 4 tablet (16 g), Oral, PRN, Other, Bedside Glucose less than 70 mg/dL -If able to eat and does not have swallowing difficulties, Starting on Marian 11/25/22 at 1736, Until Tue12/16/22 at 2245, If able to eat and does not have swallowing difficulties: For Bedside Glucose 54 - 69 mg/dL Give 16 grams of oral carbohydrates - 4 glucose tabs (see MAR) If patient refuses glucose tabs, then offer: - 4 ounces of fruit juice OR - 4 ounces non-diet soda OR - 8 ounces of fat-free milk For Bedside Glucose LESS than 54 mg/dL - verify with a second Bedside Glucose (from a different site) - If pt is symptomatic, do not delay treatment - If accuracy of the POC glucose is in question, confirm glucose with a STAT laboratory test. Give 32 grams of oral carbohydrates - 8 glucose tabs (see MAR) If patient refuses glucose gel, [...] grams of oral carbohydrates (see above for choices). NOTIFY PROVIDER OF HYPOGLYCEMIC EVENT. guaiFENesin (Robitussin) solution 10 mL 10 mL, Enteral Tube, EVERY 6 HOURS, First dose on Marian 11/25/22 at 1315, Until Discontinued $ Given 12/16/2022 6:34 PM CDT 10 mL J Tube $ Given 12/16/2022 2:46 PM CDT 10 mL J Tube $ Given 12/16/2022 5:34 AM CDT 10 mL G Tube heparin injection 5,000 Units 5,000 Units, Subcutaneous, EVERY 8 HOURS, First dose on Tue12/10/22 at 1700, Until Discontinued $ Given 12/12/2022 2:08 PM CDT 5,000 Units Abd Left Lower Quadrant $ Given 12/12/2022 6:14 AM CDT 5,000 Units A bdominal Tissue $ Given 12/11/2022 8:47 PM CDT 5,000 Units A bdominal Tissue heparin injection 5,000 Units 5,000 Units, Subcutaneous, ONCE, 1 dose, On Tue12/12/22 at 2200 $ Given 12/12/2022 9:43 PM CDT 5,000 Units Abdominal Tissue heparin injection 5,000 Units 5,000 Units, Subcutaneous, EVERY 8 HOURS, First dose on Tue12/14/22 at 2200, Until Discontinued $ Given 12/16/2022 2:42 PM CDT 5,000 Units Left Arm $ Given 12/16/2022 5:35 AM CDT 5,000 Units A bdominal Tissue $ Given 12/15/2022 8:28 PM CDT 5,000 Units A bdominal Tissue iopamidol (Isovue 300) 61 % contrast ONCE PRN, Starting on Tue12/14/22 at 1555, Until Tue12/14/22 at 1555, Intra-op $ Given 12/14/2022 3:55 PM CDT 20 mL iopamidol (Isovue 370) 76 % contrast Intravenous, CONTRAST ONCE, Starting on Marian 11/25/22 at 0619, Until 11/27/22 at 0618 $ Given - Contrast 11/25/2022 6:23 AM CDT 100 mL iopamidol (Isovue 370) 76 % contrast Intravenous, CONTRAST ONCE, Starting on 11/27/22 at 1041, Until 11/29/22 at 1040 $ Given - Contrast 11/27/2022 2:00 PM CDT 75 mL lacosamide (Vimpat) tablet 200 mg 200 mg, Enteral Tube, 2 TIMES DAILY, First dose on Tue11/25/22 at 2100, Until Discontinued $ Given 12/16/2022 10:55 AM CDT 200 mg J Tube $ Given 12/15/2022 8:08 PM CDT 200 mg G Tube $ Given 12/15/2022 9:12 AM CDT 200 mg J Tube lactated ringers infusion at 125 mL/hr, Intravenous, CONTINUOUS, Starting on Tue11/25/22 at 1600, Until Tue11/26/22 at 0359 $ New Bag/Syringe 11/25/2022 10:58 PM CDT 125 mL/hr $ New Bag/Syringe 11/25/2022 4:05 PM CDT 125 mL /hr lactated ringers infusion at 125 mL/hr, Intravenous, CONTINUOUS, Starting on Tue11/26/22 at 0900, Until Tue11/26/22 at 1856 $ New Bag/Syringe 11/26/2022 9:12 AM CDT 125 mL/hr lactated ringers infusion at 75 mL/hr, Intravenous, CONTINUOUS, Starting on Tue11/26/22 at 2200, Until Tue11/27/22 at 2226 Current Rate 11/27/2022 10:01 PM CDT 75 mL/hr Current Rate 11/27/2022 7:25 PM CDT 75 mL/hr $ New Bag/Syringe 11/27/2022 7:04 PM CDT 75 mL/ hr lactated ringers IV bolus 500 mL, at 967.74 mL/hr, Administer over 31 Minutes, ONCE, 1 dose, On [facility] 11/25/22 at 0015 $ New Bag/Syringe 11/24/2022 11:53 PM CDT 500 mL 967.74 mL/hr lactated ringers IV bolus 500 mL, at 124.48 mL/hr, Administer over 241 Minutes, ONCE, 1 dose, On [facility] 11/25/22 at 1300 $ New Bag/Syringe 11/25/2022 1:36 PM CDT 500 mL 124.48 mL/hr lactated ringers IV bolus 1,000 mL, at 1,935.48 mL/hr, Administer over 31 Minutes, ONCE, 1 dose, On Tue11/26/22 at 2145 $ New Bag/Syringe 11/26/2022 9:39 PM CDT 1,000 mL 1935.48 mL/hr lactated ringers IV bolus 500 mL, at 967.74 mL/hr, Administer over 31 Minutes, ONCE, 1 dose, On [facility] 11/27/22 at 1115 $ New Bag/Syringe 11/27/2022 10:48 AM CDT 500 mL 967.74 mL/hr levalbuterol (Xopenex) nebulizer solution 1.25 mg 1.25 mg, Inhalation, EVERY 4 HOURS, First dose (after last modification) on Tue11/26/22 at 2000, Until Discontinued $ Given 11/26/2022 6:24 PM CDT 1.25 mg levalbuterol (Xopenex) nebulizer solution 1.25 mg 1.25 mg, Inhalation, EVERY 6 HOURS, First dose (after last modification) on 11/27/22 at 0000, Until Discontinued $ Given 12/16/2022 4:50 PM CDT 1.25 mg $ Given 12/16/2022 12:42 PM CDT 1.25 mg $ Given 12/16/2022 4:19 AM CDT 1.25 mg levETIRAcetam (Keppra) oral solution 2,000 mg 2,000 mg, Enteral Tube, 2 TIMES DAILY, First dose on Tue12/08/22 at 2100, Until Discontinued $ Given 12/16/2022 10:55 AM CDT 2,000 mg J Tube $ Given 12/15/2022 8:24 PM CDT 2,000 mg G Tube $ Given 12/15/2022 9:17 AM CDT 2,000 mg J Tube levETIRAcetam (Keppra) tablet 2,000 mg 2,000 mg, Enteral Tube, 2 TIMES DAILY, First dose on Marian 11/25/22 at 2100, Until Discontinued, Do not crush or chew because of TASTE only. $ Given 12/08/2022 10:20 AM CDT 2,000 mg G Tu be $ Given 12/07/2022 9:12 PM CDT 2,000 mg G Tube $ Given 12/06/2022 8:38 PM CDT 2,000 mg G Tube lidocaine (Xylocaine) 1 % injection Subcutaneous, ONCE PRN, Starting on Tue12/14/22 at 1540, Until Tue12/14/22 at 1540, Intra-op $ Given 12/14/2022 3:40 PM CDT 4 mL Abd Left Upper Quadrant magnesium oxide (Mag-Ox) tablet 400 mg 400 mg, Enteral Tube, ONCE, 1 dose, On Tue11/28/22 at 0815 $ Given 11/28/2022 8:19 AM CDT 400 mg G Tube magnesium sulfate 2 g in 50 mL bolus 2 g, at 25 mL/hr, Administer over 120 Minutes, Intravenous, ONCE, 1 dose, On Tue11/30/22 at 0900, Infuse at 1 gm/hr Current Rate 11/30/2022 10:10 AM CDT 25 mL/hr $ New Bag/Syringe 11/30/2022 10:10 AM CDT 2 g 25 mL /hr magnesium sulfate 2 g in 50 mL bolus 2 g, at 25 mL/hr, Administer over 120 Minutes, Intravenous, ONCE, 1 dose, On [facility] 12/02/22 at 0745, Infuse at 1 gm/hr $ New Bag/Syringe 12/02/2022 8:27 AM CDT 2 g 25 mL/hr magnesium sulfate 2 g in 50 mL bolus 2 g, at 25 mL/hr, Administer over 120 Minutes, Intravenous, ONCE, 1 dose, On Tue12/05/22 at 0630, Infuse at 1 gm/hr $ New Bag/Syringe 12/05/2022 6:24 AM CDT 2 g 25 mL/hr magnesium sulfate 4 g in 100 mL bolus 4 g, at 25 mL/hr, Administer over 240 Minutes, Intravenous, ONCE, 1 dose, On Tue11/26/22 at 0845, Infuse at 1 gm/hr $ Given 11/26/2022 12:49 PM CDT 4 g $ New Bag/Syringe 11/26/2022 9:14 AM CDT 4 g 25 mL/ hr magnesium sulfate 4 g in 100 mL bolus 4 g, at 25 mL/hr, Administer over 240 Minutes, Intravenous, ONCE, 1 dose, On Tue11/26/22 at 2000, Infuse at 1 gm/hr $ New Bag/Syringe 11/26/2022 7:53 PM CDT 4 g 25 mL/hr magnesium sulfate 4 g in 100 mL bolus 4 g, at 25 mL/hr, Administer over 240 Minutes, Intravenous, ONCE, 1 dose, On Tue12/14/22 at 0815, Infuse at 1 gm/hr $ New Bag/Syringe 12/14/2022 9:52 AM CDT 4 g 25 mL/hr metoprolol (Lopressor) injection 5 mg 5 mg, Intravenous, ONCE, 1 dose, On Tue11/27/22 at 0445 $ Given 11/27/2022 4:34 AM CDT 5 mg metoprolol tartrate IR (Lopressor) tablet 25 mg 25 mg, Enteral Tube, 2 TIMES DAILY, First dose (after last modification) on Tue11/29/22 at 1200, Until Discontinued $ Given 12/16/2022 10:49 AM CDT 25 mg G Tube $ Given 12/15/2022 8:08 PM CDT 25 mg G Tube $ Given 12/15/2022 9:12 AM CDT 25 mg J Tube niCARdipine (Cardene) 20 mg in 0.9% NaCl 200 mL infusion 0-15 mg/hr (0-150 mL/hr), Intravenous, CONTINUOUS, Starting on 11/27/22 at 0900, Until 11/27/22 at 1151, Change the infusion site every 12 hours if a peripheral vein is used, Titration Parameters: Standard Parameters, Indication: Hypertension, Initiate infusion at: 2.5 mg/hr, Titrate infusion by: 2.5 mg/hr, Titrate every: 15 minutes, To maintain a: SBP 140-159 mmHg, Notify physician if: SBP greater than 180 mmHg despite max dose Rate Change 11/27/2022 10:25 AM CDT 2.5 mg/hr 25 mL/hr Current Rate 11/27/2022 9:44 AM CDT 5 mg/hr 50 mL/hr Rate Change 11/27/2022 9:43 AM CDT 5 mg/hr 50 mL/hr OLANZapine (ZyPREXA) injection 10 mg 10 mg, Intramuscular, ONCE, 1 dose, On Marian 12/02/22 at 0100, Monitor for orthostatic hypotension prior to the administration. Reconstitute with 2.1 mL of sterile water to give approximately 5 mg/mL concentration. $ Given 12/02/2022 12:43 AM CDT 10 mg Right Arm piperacillin - tazobactam (Zosyn) 3.375 g in 0.9% NaCl IV 55 mL IVPB 3.375 g, at 110 mL/hr, Intravenous, ONCE, 1 dose, On 11/28/22 at 1500, Infuse only initial dose of piperacillin-tazobactam over 30 min. Subsequent doses start 6 hours after initial dose and infused over 4 hours., Indication for anti-infective therapy: Suspected infection, Site of anti-infective therapy: Lower Respiratory $ New Bag/Syringe 11/28/2022 3:05 PM CDT 3.375 g 110 mL/hr piperacillin - tazobactam (Zosyn) 3.375 g in 0.9% NaCl IV 55 mL IVPB 3.375 g, at 13.75 mL/hr, Intravenous, EVERY 8 HOURS, 21 doses, First dose on Tue11/28/22 at 2030, Last dose on Tue12/05/22 at 1230, Indication for anti-infective therapy: Suspected infection, Site of anti-infective therapy: Lower Respiratory Current Rate 12/01/2022 5:56 AM CDT 13.75 mL/hr $ New Bag/Syringe 12/01/2022 3:45 AM CDT 3.375 g 13.75 mL/hr Rate Change 12/01/2022 12:02 AM CDT 5 mL/hr polyethylene glycol 3350 (Miralax) packet 17 g 17 g, Enteral Tube, DAILY, First dose on Tue11/28/22 at 0915, Until Discontinued, Mix in 8 ounces of water, juice, soda, coffee or tea prior to administration $ Given 12/03/2022 8:15 AM CDT 17 g G Tube $ Given 12/02/2022 9:34 AM CDT 17 g G Tube $ Given 12/01/2022 8:16 AM CDT 17 g G Tube polyethylene glycol 3350 (Miralax) packet 17 g 17 g, Enteral Tube, DAILY, First dose on 12/11/22 at 1300, Until Discontinued, Mix in 8 ounces of water, juice, soda, coffee or tea prior to administration $ Given 12/16/2022 10:49 AM CDT 17 g G Tube $ Given 12/15/2022 9:12 AM CDT 17 g J Tube $ Given 12/14/2022 9:33 AM CDT 17 g G Tube potassium chloride 20 mEq in 100 mL SW bolus 20 mEq, at 50 mL/hr, Administer over 2 Hours, Intravenous, ONCE, 1 dose, On Tue11/30/22 at 0900 $ New Bag/Syringe 11/30/2022 9:57 AM CDT 20 mEq 50 mL/hr propofol (Diprivan) infusion 0-50 mcg/kg/min ? 54.9 kg (0-16.47 mL/hr), Intravenous, CONTINUOUS, Starting on Tue11/26/22 at 1430, Until 11/27/22 at 0547, Above RASS goal: Assess and treat pain [...] max dose, Titration Priority: 1st Rate Change 11/27/2022 4:33 AM CDT 35 mcg/kg/min 11.53 mL/hr Rate Change 11/27/2022 3:09 AM CDT 40 mcg/kg/min 13.18 mL/ hr Current Rate 11/27/2022 12:53 AM CDT 35 mcg/kg/min 11.53 m L/hr propofol (Diprivan) infusion 0-50 mcg/kg/min ? 69.9 kg (0-20.97 mL/hr), Intravenous, CONTINUOUS, Starting on 11/27/22 at 0600, Until 11/27/22 at 1058, Above RASS goal: Assess and treat pain [...] max dose, Titration Priority: 1st Rate Change 11/27/2022 11:57 AM CDT 15 mcg/kg/min 6.29 mL/hr Current Rate 11/27/2022 10:16 AM CDT 30 mcg/kg/min 12.58 m L/hr $ New Bag/Syringe 11/27/2022 10:16 AM CDT 30 mcg/kg/min 12 .58 mL/hr senna-docusate (Senokot-S) tablet 1 tablet 1 tablet, Enteral Tube, 2 TIMES DAILY, First dose on Marian 11/25/22 at 1315, Until Discontinued $ Given 12/03/2022 8:32 PM CDT 1 tablet G Tube $ Given 12/03/2022 8:15 AM CDT 1 tablet G Tube $ Given 12/02/2022 8:03 PM CDT 1 tablet G Tube sodium chloride (Inhalant) 7 % nebulizer solution 4 mL 4 mL, Inhalation, EVERY 6 HOURS, First dose on Tue12/07/22 at 0130, Until Discontinued, With Sputum Induction $ Given 12/16/2022 4:50 PM CDT 4 mL $ Given 12/16/2022 12:42 PM CDT 4 mL $ Given 12/16/2022 4:20 AM CDT 4 mL sodium phosphate 30 mmol IVPB 260 mL 30 mmol, at 43.33 mL/hr, Administer over 6 Hours, Intravenous, ONCE, 1 dose, On Tue12/13/22 at 0900 Rate Change 12/13/2022 6:03 PM CDT 5 mL/hr Rate Change 12/13/2022 12:03 PM CDT 43.33 mL/hr $ New Bag/Syringe 12/13/2022 12:03 PM CDT 30 mmol 43.33 mL/hr sterile water for injection (preservative free) injection ADS Med 1 dose, Starting on Tue12/10/22 at 1218, Until Tue12/10/22 at 1823, Created by cabinet override $ New Bag/Syringe 12/10/2022 6:23 PM CDT tamsulosin (Flomax) capsule 0.4 mg 0.4 mg, Enteral Tube, DAILY, First dose on Tue11/27/22 at 0900, Until Discontinued, At the same time every day after a meal. Do not crush or chew. May open capsule and administer contents per tube but do not crush, chew, or dissolve granules. $ Given 12/16/2022 10:54 AM CDT 0.4 mg J Tube $ Given 12/15/2022 9:12 AM CDT 0.4 mg J Tube $ Given 12/14/2022 9:33 AM CDT 0.4 mg G Tube Tc-99m sulfur colloid injection SOLN 0.6 millicurie 0.6 millicurie (rounded from 0.55 millicurie = 550 micro-curie), Oral, ONCE, 1 dose, On Tue12/07/22 at 1415 $ Given 12/07/2022 1:45 PM CDT 550 micro-curie thiamine (Vitamin B-1) tablet 100 mg 100 mg, Enteral Tube, DAILY, First dose on Marian 11/25/22 at 1315, Until Discontinued $ Given 12/16/2022 10:54 AM CDT 100 mg J Tube $ Given 12/15/2022 9:12 AM CDT 100 mg J Tube $ Given 12/14/2022 9:33 AM CDT 100 mg G Tube tranexamic acid (Cyklokapron) 1,000 mg in 0.9% NaCl IV 110 mL bolus 1,000 mg, at 220 mL/hr, Intravenous, ONCE, 1 dose, On Marian 11/25/22 at 0530 $ New Bag/Syringe 11/25/2022 5:02 AM CDT 1,000 mg 220 mL/hr tranexamic acid (Cyklokapron) 1,000 mg in 0.9% NaCl IV 110 mL infusion 1,000 mg, at 13.75 mL/hr, Intravenous, ONCE, 1 dose, On Marian 11/25/22 at 0530 $ New Bag/Syringe 11/25/2022 5:03 AM CDT 1,000 mg 13.75 mL/hr vancomycin (Vancocin) 1,250 mg in 250 mL NaCl IVPB Premix 1,250 mg, at 200 mL/hr, Intravenous, EVERY 12 HOURS, 14 doses, First dose on Tue11/29/22 at 0300, Last dose on Tue12/05/22 at 1500, Indication for anti-infective therapy: Suspected infection, Site of anti-infective therapy: Lower Respiratory Rate Change 12/01/2022 4:57 AM CDT 5 mL/hr $ New Bag/Syringe 12/01/2022 3:42 AM CDT 1,250 mg 200 mL /hr Current Rate 11/30/2022 4:27 PM CDT 200 mL/hr vancomycin (Vancocin) 1,500 mg in 500 mL NaCl IVPB Premix 1,500 mg, at 333.33 mL/hr, Intravenous, ONCE, 1 dose, On Marian 11/25/22 at 0515, Indication for anti-infective therapy: Suspected infection, Site of anti-infective therapy: Lower Respiratory $ New Bag/Syringe 11/25/2022 5:58 AM CDT 1,500 mg 333.33 mL/hr vancomycin (Vancocin) 1,750 mg in 535 mL IVPB 1,750 mg (rounded from 1,747.5 mg = 25 mg/kg ? 69.9 kg), at 305.71 mL/hr, Intravenous, ONCE, 1 dose, On [place] 11/28/22 at 1515, Indication for anti-infective therapy: Suspected infection, Site of anti-infective therapy: Lower Respiratory Current Rate 11/28/2022 4:59 PM CDT 305.71 mL/hr Current Rate 11/28/2022 3:54 PM CDT 305.71 mL/h r Rate Change 11/28/2022 3:09 PM CDT 305.71 mL/hr vancomycin (Vancocin) 750 mg in 0.9% NaCl IV 250 mL IVPB 750 mg, at 333.33 mL/hr, Intravenous, EVERY 8 HOURS, First dose on Marian 11/25/22 at 1400, Until Discontinued, Indication for anti-infective therapy: Suspected infection, Site of anti-infective therapy: Upper Respiratory, Lower Respiratory $ New Bag/Syringe 11/25/2022 1:41 PM CDT 750 mg 333.33 mL/hr documented in this encounter Active and Recently Administered Medications Times are shown in CDT. Scheduled Medication Order 12/14/2022 12/15/2022 12/16/2022 0.9% NaCl injection 3 mL(Linked Group 1) 3 mL, Intracatheter, EVERY 8 HOURS, First dose on Marian 11/25/22 at 1400, Until Discontinued, Flush peripheral IV catheter with 3 mL of normal saline every 8 hours. 0539 (Not Administered - Provider: Mariajose Estrada RN - Reason: IV Currently Infusing)1309 ($ Given - Provider: Apple Lovell RN)2122 (Not Administered - Provider: Cony Estrella RN - Reason: IV Currently Infusing) 0600 ($ Given - Provider: Cony Estrella RN)1338 ($ Given - Provider: Apple Lovell RN)2028 ($ Given - Provider: Armando Villalta, ALFRED) 0534 ($ Given - Provider: Armando Villalta RN)1446 ($ Given - Provider: Zulma Mansfield RN) aspirin chew tablet 81 mg 81 mg, Enteral Tube, DAILY, First dose on Tue12/15/22 at 0900, Until Discontinued 09 ($ Given - Provider: Apple Lovell RN) 105 ($ Given - Provider: Zulma Mansfield RN) atorvastatin (Lipitor) tablet 40 mg 40 mg, Enteral Tube, AT BEDTIME, First dose on Tue11/25/22 at 2100, Until Discontinued 2120 ($ Given - Provider: Cony Estrella RN) 2007 ($ Given - Provider: Armando Villalta RN) cloBAZam (Onfi) tablet 20 mg 20 mg, Enteral Tube, 2 TIMES DAILY, First dose on Tue11/25/22 at 2100, Until Discontinued 932 ($ Given - Provider: Apple Lovell RN)2120 ($ Given - Provider: Cony Estrella RN) 09 ($ Given - Provider: Apple Lovell RN)2007 ($ Given - Provider: Armando Villalta RN) 1053 ($ Given - Provider: Zulma Mansfield RN) divalproex sprinkle (Depakote Sprinkle) capsule 500 mg 500 mg, Enteral Tube, EVERY 6 HOURS, First dose on Tue11/25/22 at 1315, Until Discontinued, Do not crush or chew sprinkle beads. 0100 ($ Given - Provider: Mariajose Estrada RN)0540 (Not Administered - Provider: Mariajose Estrada RN - Reason: NPO)1309 ($ Given - Provider: Apple Lovell RN)1714 ($ Given - Provider: Apple Lovell RN)2359 ($ Given - Provider: Cony Estrella RN) 0559 ($ Given - Provider: Cony Estrella RN)1337 ($ Given - Provider: Apple Lovell RN)1743 ($ Given - Provider: Yana Todd RN) 0027 ($ Given - Provider: Armando Villalta RN - Comment: Verified with pharmacist, this med can dissolve in water and give through GJ tube.)0536 ($ Given - Provider: Armando Villalta RN)1442 ($ Given - Provider: Zulma Mansfield RN)1834 ($ Given - Provider: Zulma Mansfield RN) folic acid (Folvite) tablet 1 mg 1 mg, Enteral Tube, DAILY, First dose on Tue11/25/22 at 1315, Until Discontinued 0933 ($ Given - Provider: Apple Lovell RN) 0911 ($ Given - Provider: Apple Lovell RN) 1054 ($ Given - Provider: Zulma Mansfield RN) guaiFENesin (Robitussin) solution 10 mL 10 mL, Enteral Tube, EVERY 6 HOURS, First dose on Tue11/25/22 at 1315, Until Discontinued 0101 ($ Given - Provider: Mariajose Estrada RN)0540 (Not Administered - Provider: Mariajose Estrada RN - Reason: NPO)1309 ($ Given - Provider: Apple Lovell RN)1714 ($ Given - Provider: Apple Lovell RN)2359 ($ Given - Provider: Cony Estrella RN) 0559 ($ Given - Provider: Cony Estrella RN)1337 ($ Given - Provider: Apple Lovell RN)1743 ($ Given - Provider: Yana Todd RN) 0027 ($ Given - Provider: Armando Villalta RN)0534 ($ Given - Provider: Armando Villalta RN)1446 ($ Given - Provider: Zulma Mansfield RN)1834 ($ Given - Provider: Zulma Mansfield RN) heparin injection 5,000 Units 5,000 Units, Subcutaneous, EVERY 8 HOURS, First dose on Tue12/14/22 at 2200, Until Discontinued 2120 ($ Given - Provider: Cony Estrella RN) 0600 ($ Given - Provider: Cony Estrella RN)1338 ($ Given - Provider: Apple Lovell RN)2028 ($ Given - Provider: Armando Villalta RN) 0535 ($ Given - Provider: Armando Villalta RN)1442 ($ Given - Provider: Zulma Mansfield RN) lacosamide (Vimpat) tablet 200 mg 200 mg, Enteral Tube, 2 TIMES DAILY, First dose on Tue11/25/22 at 2100, Until Discontinued 0933 ($ Given - Provider: Apple Lovell RN)212 ($ Given - Provider: Cony Estrella RN) 0912 ($ Given - Provider: Apple Lovell RN)2007 ($ Given - Provider: Armando Villalta RN) 1055 ($ Given - Provider: Zulma Mansfield RN) levalbuterol (Xopenex) nebulizer solution 1.25 mg 1.25 mg, Inhalation, EVERY 6 HOURS, First dose (after last modification) on Tue11/27/22 at 0000, Until Discontinued 0437 ($ Given - Provider: Saloni Mortensen RCP)1112 ($ Given - Provider: Jazmin Head RCP)1711 ($ Given - Provider: Jazmin Head RCP) 0013 ($ Given - Provider: Lynne Eastman RCP)0451 ($ Given - Provider: Lynne Eastman RCP)1135 ($ Given - Provider: Ursula Garcia RCP)1639 ($ Given - Provider: Ursula Garcia RCP)2319 ($ Given - Provider: Saloni Mortensen RCP) 0419 ($ Given - Provider: Yayo Arauz RCP)1242 ($ Given - Provider: Sandra Cesar RCP)1650 ($ Given - Provider: Sandra Cesar RCP) levETIRAcetam (Keppra) oral solution 2,000 mg 2,000 mg, Enteral Tube, 2 TIMES DAILY, First dose on Tue12/08/22 at 2100, Until Discontinued 0938 ($ Given - Provider: Apple Lovell RN)2359 ($ Given - Provider: Cony Estrella RN) 0917 ($ Given - Provider: Apple Lovell RN)202 ($ Given - Provider: Armando Villalta RN) 1055 ($ Given - Provider: Zulma Mansfield, ALFRED) magnesium sulfate 4 g in 100 mL bolus (COMPLETED) 4 g, at 25 mL/hr, Administer over 240 Minutes, Intravenous, ONCE, 1 dose, On Tue12/14/22 at 0815, Infuse at 1 gm/hr 0952 ($ New Bag/Syringe - Provider: Apple Lovell RN)1003 (Stopped - Provider: Apple Lovell RN)1003 (Stopped - Provider: Apple Lovell RN)1352 (Stopped - Provider: Apple Lovell RN) metoprolol tartrate IR (Lopressor) tablet 25 mg 25 mg, Enteral Tube, 2 TIMES DAILY, First dose (after last modification) on Tue11/29/22 at 1200, Until Discontinued 0933 ($ Given - Provider: Apple Lovell RN)2121 ($ Given - Provider: Cony Estrella RN) 0912 ($ Given - Provider: Apple Lovell, RN)2007 ($ Given - Provider: Armando Villalta RN) 1049 ($ Given - Provider: Zulma Mansfield RN) polyethylene glycol 3350 (Miralax) packet 17 g 17 g, Enteral Tube, DAILY, First dose on Tue12/11/22 at 1300, Until Discontinued, Mix in 8 ounces of water, juice, soda, coffee or tea prior to administration 0933 ($ Given - Provider: Apple Lovell RN) 0912 ($ Given - Provider: Apple Lovell RN) 1049 ($ Given - Provider: Zulma Mansfield, ALFRED) sodium chloride (Inhalant) 7 % nebulizer solution 4 mL 4 mL, Inhalation, EVERY 6 HOURS, First dose on Tue12/07/22 at 0130, Until Discontinued, With Sputum Induction 0437 ($ Given - Provider: Saloni Mortensen RCP)1112 ($ Given - Provider: Jazmin Head RCP)1711 ($ Given - Provider: Jazmin Head RCP) 0013 ($ Given - Provider: Lynne Eastman RCP)0451 ($ Given - Provider: Lynne Eastman RCP)1135 ($ Given - Provider: Ursula Garcia RCP)1639 ($ Given - Provider: Ursula Garcia RCP)2319 ($ Given - Provider: Saloni Mortensen CHAINSTITCH HEMMER) 0420 ($ Given - Provider: Yayo Arauz CHAINSTITCH HEMMER)1242 ($ Given - Provider: Sandra Cesar CHAINSTITCH HEMMER)1650 ($ Given - Provider: Sandra Cesar RCP) tamsulosin (Flomax) capsule 0.4 mg 0.4 mg, Enteral Tube, DAILY, First dose on Tue11/27/22 at 0900, Until Discontinued, At the same time every day after a meal. Do not crush or chew. May open capsule and administer contents per tube but do not crush, chew, or dissolve granules. 0933 ($ Given - Provider: Apple Lovell RN) 0912 ($ Given - Provider: Apple Lovell RN) 1054 ($ Given - Provider: Zulma Mansfield RN) thiamine (Vitamin B-1) tablet 100 mg 100 mg, Enteral Tube, DAILY, First dose on [facility] 11/25/22 at 1315, Until Discontinued 0933 ($ Given - Provider: Apple Lovell RN) 0912 ($ Given - Provider: Apple Lovell RN) 1054 ($ Given - Provider: Zulma Mansfield RN) Continuous Medication Order 12/14/2022 12/15/2022 12/16/2022 dextrose 5 % and lactated ringers infusion (CANCELED) at 50 mL/hr, Intravenous, CONTINUOUS, Starting on Tue12/13/22 at 1815, Until Tue12/14/22 at 0754 0543 (Current Rate - Provider: Mariajose Estrada RN)0544 (Current Rate - Provider: Mariajose Estrada RN) dextrose 5 % and lactated ringers infusion (CANCELED) at 50 mL/hr, Intravenous, CONTINUOUS, Starting on Tue12/14/22 at 0800, Until Tue12/14/22 at 0907 0815 (*Current Bag - New Order - Provider: Apple Lovell RN) dextrose 5 % and lactated ringers infusion () at 100 mL/hr, Intravenous, CONTINUOUS, Starting on Tue12/14/22 at 0915, Until Tue12/14/22 at 1514 0932 (*Current Bag - New Order - Provider: Apple Lovell, RN)1400 (Stopped - Provider: Apple Lovell, RN) PRN Medication Order 12/14/2022 12/15/2022 12/16/2022 0.9% NaCl injection 1-10 mL(Linked Group 1) 1-10 mL, Intracatheter, PRN, Other, peripheral line flush, Starting on Marian 11/25/22 at 1112, Until Marian 12/16/22 at 2245, Flush peripheral IV catheter with 1-10 mL of normal saline before and after medications and prn to clear blood from the line or to verify patency. acetaminophen (Tylenol) tablet 650 mg 650 mg, Enteral Tube, EVERY 4 HOURS PRN, Mild Pain, Moderate Pain, Starting on [place] 12/12/22 at 0828, Until Tue12/16/22 at 2245, Patient preference for lesser PRN pain meds may be honored when the patient requests a less strong medication, a lower dose, or a less intrusive route of administration when the lesser drug, dose and route have been ordered for the patient. This patient request must be documented in the MAR. glucagon (Glucagen) injection 1 mg 1 mg, Subcutaneous, PRN, Bedside Glucose less than 70 mg/dL - If NOT able to eat and/or NPO and withOUT IV Access, Starting on Marian 11/25/22 at 1736, Until Marian 12/16/22 at 2245, If NOT able to eat and/or NPO and NO IV Access: For Bedside glucose 54-69 mg/dL - Give 1 mg subcutaneous For Bedside Glucose LESS than 54 mg/dl - verify with a second bedside glucose (from a different site) - Give 1 mg subcutaneous Re-check and Re-treat blood glucose EVERY 10-25 minutes until blood glucose GREATER than or equal to 80 mg/dl. NOTIFY PROVIDER OF HYPOGLYCEMIC EVENT. Reconstitute vial with 1 mL of sterile water for injection for a final concentration of 1 mg/mL; shake vial gently; use immediately and discard unused portion glucose (Diabetic Use) (Dex4 Glucose) oral liquid Oral, PRN, Other, Bedside Glucose less than 70 mg/dL -If able to eat and does not have swallowing difficulties, Starting on Marian 11/25/22 at 1736, Until Marian 12/16/22 at 2245, If able to eat and can swallow thin liquids: For Bedside Glucose 54 - 69 mg/dL Give 15 grams of oral carbohydrates - 1 glucose liquid (see MAR) If patient refuses glucose liquid, then offer: - 4 ounces of fruit juice OR - 4 ounces non-diet soda OR - 8 ounces of fat-free milk For Bedside Glucose LESS than 54 mg/dL - verify with a second Bedside Glucose (from a different site) - If pt is symptomatic, do not delay treatment - If accuracy of the POC glucose is in question, confirm glucose with a STAT laboratory test. Give 30 grams of oral carbohydrates - 2 glucose liquid (see MAR) If patient refuses glucose liquid, then offer: - 8 ounces of fruit juice OR - 8 ounces non-diet soda OR - 16 ounces of fat-free milk Re-check and Re-treat blood glucose EVERY 10-25 minutes until blood glucose GREATER than or equal to 80 mg/dl. - If on recheck, bedside glucose 54-79 mg/dL - Give 15 grams of oral carbohydrates (see above for choices) NOTIFY PROVIDER OF HYPOGLYCEMIC EVENT. glucose (Diabetic Use) oral gel Oral, PRN, Other, Bedside Glucose less than 70 mg/dL -If able to eat and does not have swallowing difficulties, Starting on Marian 11/25/22 at 1736, Until Marian 12/16/22 at 2245, If able to eat and is better able to swallow gel: For Bedside Glucose 54 - 69 mg/dL [...] for choices) NOTIFY PROVIDER OF HYPOGLYCEMIC EVENT. glucose chew tablet 4 tablet 4 tablet (16 g), Oral, PRN, Other, Bedside Glucose less than 70 mg/dL -If able to eat and does not have swallowing difficulties, Starting on Marian 11/25/22 at 1736, Until Marian 12/16/22 at 2245, If able to eat and does not have swallowing difficulties: For Bedside Glucose 54 - 69 mg/dL Give 16 grams of oral carbohydrates - 4 glucose tabs (see MAR) If patient refuses glucose tabs, then offer: - 4 ounces of fruit juice OR - 4 ounces non-diet soda OR - 8 ounces of fat-free milk For Bedside Glucose LESS than 54 mg/dL - verify with a second Bedside Glucose (from a different site) - If pt is symptomatic, do not delay treatment - If accuracy of the POC glucose is in question, confirm glucose with a STAT laboratory test. Give 32 grams of oral carbohydrates - 8 glucose tabs (see MAR) If patient refuses glucose gel, [...] grams of oral carbohydrates (see above for choices). NOTIFY PROVIDER OF HYPOGLYCEMIC EVENT. iopamidol (Isovue 300) 61 % contrast (COMPLETED) ONCE PRN, Starting on Tue12/14/22 at 1555, Until Tue12/14/22 at 1555, Intra-op 1555 ($ Given - Provider: Krystal Stock MD) lidocaine (Xylocaine) 1 % injection (COMPLETED) Subcutaneous, ONCE PRN, Starting on Tue12/14/22 at 1540, Until Tue12/14/22 at 1540, Intra-op 1540 ($ Given - Provider: Krystal Stock MD) Linked Groups Order Group 1: SALINE LOCK, INSERT AND MAINTAIN (CANCELED) Routine, CONTINUOUS, Starting on Marian 11/25/22 at 1115, Until Specified, New collection, Task Completed: Yes And 0.9% NaCl injection 3 mLJump to med 3 mL, Intracatheter, EVERY 8 HOURS, First dose on Marian 11/25/22 at 1400, Until Discontinued, Flush peripheral IV catheter with 3 mL of normal saline every 8 hours. And 0.9% NaCl injection 1-10 mLJump to med 1-10 mL, Intracatheter, PRN, Other, peripheral line flush, Starting on Marian 11/25/22 at 1112, Until Marian 12/16/22 at 2245, Flush peripheral IV catheter with 1-10 mL of normal saline before and after medications and prn to clear blood from the line or to verify patency. 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
--- OUTSIDE RECORDS SUMMARY | 2024-06-08 05:33 | XMS_ITS | Encounter Summary ---
Author Organization [facility] Health Address [address] [address] Care Team Providers Care Rubber Mill Operator Name Role Phone Elizabeth Sullivan RN Unavailable [phone] Joyce Luevano CEMENT STORAGE WORKER-PREDICTIVE MAINTENANCE SPECIALIST Primary Care Provider [phone] Encounter Details Date Type Department Care Team (Latest Contact Info) Description 11/12/2022 Travel Social History Tobacco Use Types Packs/Day Years Used Date Smoking Tobacco: Former Cigarettes 1 15 Smokeless Tobacco: Never Alcohol Use Standard Drinks/Week Comments No 0 (1 standard drink = 0.6 oz pur e alcohol) last drink 2015 AUDIT-C Answer Date Recorded Q1: How often do you have a drink containing alcohol? Never 08/29/2022 Q2: How many drinks containi ng alcohol do you have on a typical day when you are drinking? Patient does not drink Q3: How often do you have si x or more drinks on one occasion? Never 08/29/2022 Overall Financial Resource Strain (CARDIA) Answe r Date Recorded How hard is it for you to pa y for the very basics like food, housing, medical care, and heating? Patient declined 08/29/2022 [facility] Occup[facility] - Occupational Stress Questionnaire Answer Date Recorded Do you feel stress - tense, restless, nervous, or anxious, or unable to sleep at night because your mind is troubled all the time - these days? Not at all 08/29/2022 Hunger Vital Sign Answer Date Recorded Within the past 12 months, y ou worried that your food would run out before you got the money to buy more. Never true 08/30/19 23 Within the past 12 months, t he food you bought just didn't last and you didn't have money to get more. Never true 08/29/2022 PRAPARE - Transportation Answer Date Re corded In the past 12 months, has l ack of transportation kept you from medical appointments or from getting medications? No 06/2022 In the past 12 months, has l ack of transportation kept you from meetings, work, or from getting things needed for daily living? No 08/29/2022 Housing Stability Vital Sign Answer Vinay e Recorded In the last 12 months, was t here a time when you were not able to pay the mortgage or rent on time? No 08/29/2022 In the last 12 months, how many places have you lived? 1 08/29/2022 In the last 12 months, was t here a time when you did not have a steady place to sleep or slept in a group home (including now)? No 08/29/2022 Sex and Gender Information Value Date Recorded [...] Yes 08/29/2022 documented as of this encounter Plan of Treatment Upcoming Encounters Date Type Department Care Team (Late st Contact Info) Description 12/05/2024 1:00 PM CDT Office Visit [facility] - Neurology [address] [facility] [place] [id number] Sean Raymundo, DO [address] [place] [id number] documented as of this encounter Visit Diagnoses Not on filedocumented in this encounter Additional Health Concerns Infection Onset Date Last Indicated Resolved Time 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
--- OUTSIDE RECORDS SUMMARY | 2024-06-08 05:33 | XMS_ITS | Encounter Summary ---
Author Organization [facility] Address [address] [place] [address] Care Team Providers Care Criminal Intelligence Specialist Name Role Phone Elizabeth Sullivan RN Unavailable [phone] Joyce Luevano TOBACCO EDUCATOR-FOOD CHEMIST Primary Care Provider [phone] Reason for Visit * Reason Comments HEMOPTYSIS Pt BIBEMS due to blo od noted while suctioning patient trach. * Auth/Cert (Routine) Specialty Diagnoses / Procedures Referred By Anabella dan Referred To Contact Referral ID Status Reason Start Date Expiration Date Visits Re quested Visits Authorized [id number] 1 1 Encounter Details Date Type Department Care Team (Late st Contact Info) Description 11/26/2022 11:05 AM CDT - 11/26/2022 1:33 PM CDT Surgery [facility] [address] [place] [id number] Alden Hurtado MD [address] [place] [address] Bilateral Nasal Endoscopy, Right polypectomy, Right Maxillary Antrostomy, Rihjy Anterior Ethmoidectomy Surgery Details Date/Time Status Location OR Service Patient Class Case Class Case Type Trauma Case? 11/26/2022 11:05 AM Posted [facility] OR OR 14 ENT Inpatient Work Ins >24 Hrs to 5 Days Panel 1 Procedure LRB Anes Op Region Wound Class Comments Bilateral Nasal Endoscopy, R ight polypectomy, Right Maxillary Antrostomy, Rihjy Anterior Ethmoidectomy N/A General Nose Clean Contaminated Surgeon Surgeon Role Service Panel Alden Hurtado MD Primary ENT 1 Rodrigo Lobo MD Resident - Assisting ENT 1 Case Notes Sinus setup, stealth, micro debrider documented in this encounter Social History Tobacco [...] medical care, and heating? Patient declined 08/29/2022 [employer] [facility] Occupat ional Health - Occupational Stress [...] place to sleep or slept in a alf (including now)? No 08/29/2022 Sex and Gender [...] Sign Reading Time Taken Comments Blood Pressure 126/87 11/26/2022 1:30 PM CDT Pulse 99 11/26/2022 1:30 PM CDT Temperature 36.1 ??C (97 ??F) 11/26/2022 1:14 PM CDT Respiratory Rate 12 11/26/2022 1:30 PM CDT Oxygen Saturation 100% 11/26/2022 1:30 PM CDT Inhaled Oxygen Concentration 50% 11/26/2022 1 :15 PM CDT Weight 54.9 kg (121 lb) 11/25/2022 6:20 AM CDT Height 177.8 cm (5' 10 ) 11/25/2022 6:20 AM CDT Body Mass Index 22.91 12/14/2022 [...] this encounter Discharge Summaries * Rober Conti, - 12/16/2022 1:45 PM CDT [facility] INTERNAL MEDICINE DISCHARGE SUMMARY PATIENT: [...] IP CONSULT TO RESPIRATORY IP CONSULT TO DIRECTOR OF INTERCOLLEGIATE ATHLETICS IP CONSULT TO NUTRITIONAL SERV IP CONSULT [...] 2022, PVD s/p L AKA, presenting from [facility] in [place] for bleeding from trach and AoC resp [...] medically cleared and stable for discharge to [facility]. Note to PCP (e.g. vitals, labs, imaging, medication start/stop, etc. to follow): Patient discharged on Metoprolol tartrate for rhythm control d/t intraoperative ventricular tachycardia. Will need follow-up. Significant Diagnostic Studies: Labs this admission: CBC: Recent Labs Lab 12/16/2234812/15/22 0818 12/14/22 0638 12/13/22 1118 12/12/22 1530 WBC 11.2* 9.2 16.9* 1 9.2 HGB 12.1 11.3* 11.9* 1 11.3* HCT 38.2 33.6* 35.9 1 34.7* MCV 94.3 89.8 91.1 1 91.3 PLTCOUNT -- 123* 134* -- 202 1 = values in this interval not displayed. BMP: Recent Labs Lab 12/16/2234812/15/22 0818 12/14/22 0638 NA 133* 135* 135* POTASSIUM 4.7* 4.2 4.2 CL 105 103 104 BUN 12 11 10 CREATININE 0.52* 0.51* 0.47* CALCIUM 9.3 9.3 9.9 CMP: Recent Labs Lab 12/16/22 03412/15/22 0818 12/14/22 0638 11/26/22 0310 11/25/22 0335 [...] Impression: Successful conversion of the existing 24 [place] gastrostomy catheter for a new 18-[place] balloon-retention gastrojejunostomy catheter under fluoroscopic guidance, as [...] Neuro: Nonverbal at baseline DISCHARGE PLANNING Disposition: [facility] facility Patient Instructions: Medication List START taking [...] medications, please ask the pharmacy when you spanish moss picker your prescription. You may also call your primary provider if you still have questions.? ? 2. FOLLOW-UP:? A) Below are your scheduled appointments? ? -If you are not going home but to Rehab or Care Home, ask the providers there about going to [...] in your care!? ? Internal Medicine Team? [facility] [address]? [place] [address]? ? Signed: Rober Conti DO Internal Medicine Resident [facility] 12/16/2022 1:45 PM Associated attestation - Feliciano [...] encounter Discharge Instructions * Discharge Instructions* Rober Conti DO - 12/15/2022 6:50 PM CDT DISCHARGE INSTRUCTIONS? [...] medications, please ask the pharmacy when you spanish moss picker your prescription. You may also call your primary provider if you still have questions.? ? 2. FOLLOW-UP:? A) Below are your scheduled appointments? ? -If you are not going home but to Rehab or Care Home, ask the providers there about going to [...] in your care!? ? Internal Medicine Team? [facility] [address]? [place] [address]? ? documented in this encounter Medications at [...] route every 6 hours 480 capsule 11 11/11/2022 01/14/2023 docusate sodium (Colace) 150 MG/15ML [...] as of this encounter Progress Notes * Gracia Hess - 12/16/2022 3:18 PM CDT Facility Transfer Note Level of Care: Actual level of care at discharge: Care Home - Medicaid Facility Name: (include name of person confirming admission): Actual discharge provider: [facility] [place] Made Aware of Special Needs (if applicable): n/a RN Call Report to:[phone] Fax D/C Orders to:[phone] Transportation (company and number): [facility] Certificate of Medical Necessity rationale: CVA, impaired mobility, dementia, Date/time of transfer: 12-16-22 @ 5:15pm Accepting MD and contact #: n/a Completed and Signed [id number] (if applicable): n/a Family/Other Notified of Transfer [...] and HTN who presents to [facility] from [facility]) for acute on chronic hypoxic respiratory failure [...] incision on nose Estimated Energy Needs: KCAL: 6463-0092 (30-35kcal/kg (ABW)) Protein (g): 90g (1.3g/kg (ABW)) [...] with current goal Ascom: 4534 * Rober Conti DO - 12/15/2022 12:55 PM CDT Internal Medicine [...] 2022, PVD s/p L AKA, presenting from [facility] in [place] for bleeding from trach and AoC resp [...] Min: 92 % Max: 100 %] Date 12/13/22 07 - 12/14/22 0659 12/14/22699 - 12/15/22 0659 Shift 6645-1529 8826-5983 24 Hour Total 5228-3186 7853-6007 24 Hour Total INTAKE I.V.(mL/kg/hr) 263.5(0.3) 16.2(0) [...] Component Name 12/14/22 0638 12/13/22 0146 12/12/22 034 NA 135* 135* 139 POTASSIUM 4.2 4.7* 4.9* CL 104 103 105 CO2 23 25 27 BUN 10 12 11 CREATININE 0.47* 0.49* 0.51* EGFR >90 >90 >90 GLUCOSE 114 94 116* CALCIUM 9.9 9.9 9.9 ANIONGAP 12 12 12 Recent Labs Component Name 12/14/22 0638 12/13/22 0146 12/12/22 034 PHOS 3.5 2.6* 2.7* MAGNESIUM 1.7 1.8 [...] YEASTBUDDING - - Few* Microbiology: Reviewed in [facility] Imaging: Reviewed in [facility] Assessment and Plan: Mojgan Tabor is 62 yo w/ pmhx of chronic resp failure w/ new hypoxia, dementia, CVA w/ left sided deficits, trach and GJ tube 12/14/22, zenker diverticulum s/p diverticulectomy 2022, PVD s/p L AKA, presenting from [facility] in [place] for bleeding from trach and AoC resp [...] TF @ facility using PEG tube - [employer] consulted - seen patient multiple times over [...] 2022 during admission for aspiration pneumonia -??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 -??Surgical removal of bleeding polyp aborted due to Vtach run -??Extubated on 12/06 -----PLAN: -??SpO2 goal of 90% -??Continue MANAGER SECURITY AND SAFETY guaifenesin, levalbuterol -??Hold MANAGER SECURITY AND SAFETY scopolamine??patch -??f/u outpatient ENT #Hypoglycemia likely 2/2 to decreased caloric intake - Per RN at bedside, patient BG has been running 70-80 -----PLAN: - Resumed TF in setting of GJ placement - BG checks q4 hours ? #QTc prolongation -??Baseline 455,??prolonged to 526, most recent EKG 11/29 438 -----PLAN: -??Avoid QT-prolonging medications ?? #PVD s/p L AKA -??On MANAGER SECURITY AND SAFETY atorvastatin 40mg -----PLAN: - restart ASA 81 ?? #Pain #Back Pain -----PLAN - Frequent repositioning - Tylenol 650mg [id number] PRN ?? #Concern for Ventilator-Associated Pneumonia - [...] Left Sided Deficits #Dementia #Seizure Disorder -??On MANAGER SECURITY AND SAFETY atorvastatin 40mg, Depakote 500mg q6h, Clobazam 20mg BID, ??Lacosamide 200mg BID, Midazolam 5mg nasal spray PRN -----PLAN: -??MANAGER SECURITY AND SAFETY ASA??were held??due to??recent??bleeding, may resume if no epistaxis/nasal polyp bleeding ?? #BPH - On MANAGER SECURITY AND SAFETY tamsulosin 0.4mg #Disposition: Inpatient. If patient tolerates GJ tube feeds for 24 hrs, can discharge back to [facility]. Likely d/c 12/16. Lines: Trach collar, Jensen, PEG tube, PIV Prophylaxis: GI - Miralax DVT - SCDs, Heparin Nutrition: DIET NPO Except: SIPS WITH MEDS DIET TUBE FEEDING CONTINUOUS Code Status: Full Code Consults: IP CONSULT TO OTOLARYNGOLOGY IP CONSULT TO NUTRITIONAL SERV IP CONSULT TO RESPIRATORY IP CONSULT TO DIRECTOR OF INTERCOLLEGIATE ATHLETICS IP CONSULT TO NUTRITIONAL SERV IP CONSULT TO NUTRITIONAL SERV IP CONSULT TO GENERAL SURGERY IP CONSULT TO INFECTIOUS DISEASES IP CONSULT TO INTERVENTIONAL RADIOLOGY IP CONSULT TO GASTROENTEROLOGY This patient will be discussed with the Attending Dr. Julius Tucker, DO Internal Medicine, PGY-1 12/14/2022 6:15 PM Associated [...] Lopez MD - 12/14/2022 5:01 PM CDT [facility] INTERNAL MEDICINE PROGRESS NOTE Patient: Mojgan Tabor [...] via PEG for nutrition at home - [employer] consulted - over the last 2 years [...] growth and acinetobacter??in sputum cx - ddx 07/01 to demargination in setting of stress from [...] HTN at baseline; was not on any MANAGER SECURITY AND SAFETY meds - CT PE negative, TSH wnl -??24h urine metanephrines WNL Plan: -??Cardiology consult: totrate BP with gtts and transition with oral antihypertensives - metop tart 25 BID for rate control ?? #QTc prolongation -??Baseline 455,??prolonged to 526, most recent EKG 11/29 438 -----PLAN: -??Continue to monitor -??Avoid QT-prolonging medications ?? #PVD s/p L AKA -??On MANAGER SECURITY AND SAFETY atorvastatin 40mg -??May resume??ASA??if no bleeding -----PLAN: Restart ASA post IR procedure.? #Acute on Chronic Hypoxic Respiratory Failure s/p tracheostomy #Antrochoanal Polyp c/b bleeding -??Tracheostomy placed Jun 2022 during admission for aspiration pneumonia -??In retirement facility, 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 -??Surgical removal of bleeding polyp aborted due to Vtach run -??Epistat in place to control bleeding; posterior balloon deflated -??Extubated on 12/06 -----PLAN: -??SpO2 goal of 90% -??Continue MANAGER SECURITY AND SAFETY guaifenesin, levalbuterol -??Hold MANAGER SECURITY AND SAFETY scopolamine??patch -??f/u outpatient ENT ?? #Pain #Back Pain - Patient complains of back pain - Upon repositioning, states pain is improved -----PLAN: - Pain control - Frequent repositioning - Tylenol 650mg [id number] PRN - Adjust pain medication as necessary [...] Left Sided Deficits #Dementia #Seizure Disorder -??On MANAGER SECURITY AND SAFETY atorvastatin 40mg, Depakote 500mg q6h, Clobazam 20mg BID, ??Lacosamide 200mg BID, Midazolam 5mg nasal spray PRN -----PLAN: -??MANAGER SECURITY AND SAFETY ASA??were held??due to??recent??bleeding, may resume if no epistaxis/nasal polyp bleeding Plan: - resuming ASA, will restart 12/13??after procedure - home atorva 40 ?? #BPH -??On MANAGER SECURITY AND SAFETY tamsulosin 0.4mg Code: FULL Diet: NPO, resume TF when ok per IR Electrolytes: Replete PRN PPx: scd, heparin Access: PIV x1 Dispo: Continue admission to medicine The above assessment and plan will be discussed with the attending. This note is not final until attested by attending physician. Ramon Lopez MD Internal Medicine Resident [facility] 12/14/2022 5:01 PM Associated attestation - Feliciano [...] Service: 12/14/2022 Feliciano Madrid MD * Tiffani Moreno, ALFRED - 12/14/2022 4:07 PM CDT Interventional Radiology [...] - 12/14/2022 6:44 AM CDT Spoke with international logistics manager A, Dirk Ram, for clarification on TF. [...] Gracia Hess - 12/13/2022 10:48 AM CDT ASHWIN newly assigned and assuming disposition and or placement from previous SW's case load. Patient is from [facility] ([phone]) SW called Angela arias (otpion 2) to make aware that patient should be ready soon, message was left. Per ASHWIN note 12-09-22 pending GJ tube for nutrition. On 12-10-22 PEG tube exchange did. UPDATE: Angela called back to say that patient will go back into his room #506. RN is to call RN: [phone] FAX: [phone] CLARITA Finch Care Coordination Hardness Inspector * Rupa Coyle RN - 12/13/2022 8:44 [...] %] Date 12/12/22699 - 12/13/22 0612/13/22699 - 12/14/22 0659 Shift 5363-9020 6213-8822 24 Hour Total 2886-3685 7725-7089 24 Hour Total INTAKE Other 300 175 [...] YEASTBUDDING - - Few* Microbiology: Reviewed in [facility] Imaging: Reviewed in [facility] Assessment and Plan: Mojgan Tabor, 62 y.o. male, remains in the hospital for GJ tube placement and pending feeding trial for replacement at his care facility. #Dysphagia s/p PEG placement #Severe Protein Calorie Malnutrition -??Tube feeds via PEG for nutrition at home - [employer] consulted - over the last 2 years [...] HTN at baseline; was not on any MANAGER SECURITY AND SAFETY meds - CT PE negative, TSH wnl -??24h urine metanephrines WNL -??Cardiology consult: consider workup for pheochromocytoma, titrate BP with gtts and transition with oral antihypertensives ?? #QTc prolongation -??Baseline 455,??prolonged to 526, most recent EKG 11/29 438 -----PLAN: -??Continue to monitor -??Avoid QT-prolonging medications ?? #PVD s/p L AKA -??On MANAGER SECURITY AND SAFETY atorvastatin 40mg -??May resume??ASA??if no bleeding -----PLAN: - Will consider restarting??ASA??12/13??if tolerates IR procedure.? 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 -??Surgical removal of bleeding polyp aborted due to Vtach run -??Epistat in place to control bleeding; posterior balloon deflated -??Extubated on 12/06 -----PLAN: -??SpO2 goal of 90% -??Continue MANAGER SECURITY AND SAFETY guaifenesin, levalbuterol -??Hold MANAGER SECURITY AND SAFETY scopolamine??patch -??f/u outpatient ENT ?? #Pain #Back Pain - Patient complains of back pain - Upon repositioning, states pain is improved -----PLAN: - Pain control - Frequent repositioning - Tylenol 650mg [id number] PRN - Adjust pain medication as necessary [...] Left Sided Deficits #Dementia #Seizure Disorder -??On MANAGER SECURITY AND SAFETY atorvastatin 40mg, Depakote 500mg q6h, Clobazam 20mg BID, ??Lacosamide 200mg BID, Midazolam 5mg nasal spray PRN -----PLAN: -??MANAGER SECURITY AND SAFETY ASA??were held??due to??recent??bleeding, may resume if no epistaxis/nasal polyp bleeding - 12/11: discussed resuming ASA, will restart 12/13??after procedure ?? #BPH - On MANAGER SECURITY AND SAFETY tamsulosin 0.4mg Lines: Trach collar, Jensen, PEG tube, PIV Prophylaxis: GI - Miralax DVT - SCDs, Heparin Nutrition: DIET NPO Except: SIPS WITH MEDS Code Status: Full Code Consults: IP CONSULT TO OTOLARYNGOLOGY IP CONSULT TO NUTRITIONAL SERV IP CONSULT TO RESPIRATORY IP CONSULT TO DIRECTOR OF INTERCOLLEGIATE ATHLETICS IP CONSULT TO NUTRITIONAL SERV IP CONSULT [...] Hepatology Fellow Division of Gastroenterology and Hepatology [facility] * Rupa Coyle RN - 12/12/2022 10:50 [...] - 12/12/22 0612/12/22699 - 12/13/22 0659 Shift 1533-1621 2959-1961 24 Hour Total 8222-3682 2452-9596 24 Hour Total INTAKE Other 300 300 Tube 601 601 Enteral 452 968 7583 Shift Total(mL/kg) 1457(20.6) 1240(17.5) 2697(38.1) OUTPUT Urine(mL/kg/hr) [...] Data Review CBC: Recent Labs Component Name 12/11/22 0402 12/10/22 0344 12/09/22 0552 WBC 7.2 6.9 7.1 HGB 13.2 13.0 12.0 PLTCOUNT 236 266 295 MCV 92.1 92.4 90.1 BMP: Recent Labs Component Name 12/12/22 0342 12/11/22 0402 12/10/22 0344 NA 139 138 139 POTASSIUM 4.9* 4.1 [...] YEASTBUDDING - - Few* Microbiology: Reviewed in [facility] Imaging: Reviewed in [facility] Assessment and Plan: #Dysphagia s/p PEG placement #Severe Protein Calorie Malnutrition -??Tube feeds via PEG for nutrition at home - [employer] consulted - over the last 2 years [...] HTN at baseline; was not on any MANAGER SECURITY AND SAFETY meds - CT PE negative, TSH wnl -??24h urine metanephrines WNL -??Cardiology consult: consider workup for pheochromocytoma, titrate BP with gtts and transition with oral antihypertensives ?? #QTc prolongation -??Baseline 455,??prolonged to 526, most recent EKG 11/29 438 -----PLAN: -??Continue to monitor -??Avoid QT-prolonging medications ?? #PVD s/p L AKA -??On MANAGER SECURITY AND SAFETY atorvastatin 40mg -??May resume??ASA??if no bleeding -----PLAN: - Will consider restarting??ASA??12/13??if tolerates IR procedure.? #Acute on Chronic Hypoxic Respiratory Failure s/p tracheostomy #Antrochoanal Polyp c/b bleeding -??Tracheostomy placed Jun 2022 during admission for aspiration pneumonia -??In retirement facility, 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 -??Surgical removal of bleeding polyp aborted due to Vtach run -??Epistat in place to control bleeding; posterior balloon deflated -??Extubated on 12/06 -----PLAN: -??SpO2 goal of 90% -??Continue MANAGER SECURITY AND SAFETY guaifenesin, levalbuterol -??Hold MANAGER SECURITY AND SAFETY scopolamine??patch -??f/u outpatient ENT #Pain #Back Pain - Patient complains of back pain - Upon repositioning, states pain is improved -----PLAN: - Pain control - Frequent repositioning - Tylenol 650mg x2gcoys PRN - Adjust pain medication as necessary [...] Left Sided Deficits #Dementia #Seizure Disorder -??On MANAGER SECURITY AND SAFETY atorvastatin 40mg, Depakote 500mg q6h, Clobazam 20mg BID, ??Lacosamide 200mg BID, Midazolam 5mg nasal spray PRN -----PLAN: -??MANAGER SECURITY AND SAFETY ASA??were held??due to??recent??bleeding, may resume if no epistaxis/nasal polyp bleeding - 12/11: discussed resuming ASA, will restart 12/13??after procedure ?? #BPH - On MANAGER SECURITY AND SAFETY tamsulosin 0.4mg Lines: Trach collar, Jensen, PEG tube, PIV Prophylaxis: GI - Miralax DVT - SCDs, Heparin Nutrition: DIET TUBE FEEDING CONTINUOUS DIET NPO Except: NO EXCEPTIONS Code Status: Full Code Consults: IP CONSULT TO OTOLARYNGOLOGY IP CONSULT TO NUTRITIONAL SERV IP CONSULT TO RESPIRATORY IP CONSULT TO DIRECTOR OF INTERCOLLEGIATE ATHLETICS IP CONSULT TO NUTRITIONAL SERV IP CONSULT TO NUTRITIONAL SERV IP CONSULT TO GENERAL SURGERY IP CONSULT TO INFECTIOUS DISEASES IP CONSULT TO INTERVENTIONAL RADIOLOGY IP CONSULT TO GASTROENTEROLOGY This patient will be discussed with the Attending Dr. Julius Tucker, DO Internal Medicine, PGY-1 12/12/2022 7:24 [...] Service: 12/12/2022 Feliciano Madrid MD * Anna Shine, ALFRED - 12/12/2022 2:55 AM CDT Problem: Fall [...] Min: 96 % Max: 100 %] Date 12/10/22699 - 12/11/2265812/11/22699 - 12/12/22 06 Shift [id number] 24 Hour Total 2648-5057 9190-1981 24 Hour Total INTAKE Tube 30 30 [...] Data Review CBC: Recent Labs Component Name 12/11/22 0402 12/10/22 0344 12/09/22 0552 WBC 7.2 6.9 7.1 HGB 13.2 13.0 12.0 PLTCOUNT 236 266 295 MCV 92.1 92.4 90.1 BMP: Recent Labs Component Name 12/11/22 0402 12/10/22 0344 12/09/22 0552 NA 138 139 138 POTASSIUM 4.1 4.8* 4.5 CL 104 104 106 CO2 25 28 27 BUN 11 15 13 CREATININE 0.50* 0.50* 0.47* EGFR >90 >90 >90 GLUCOSE 81 88 112 CALCIUM 10.5* 10.4* 10.1 ANIONGAP 13 12 10 Recent Labs Component Name 12/11/22 0402 12/10/22 0344 12/09/22 0552 PHOS 2.9 2.9 2.8 MAGNESIUM 1.7 1.7 1.8 Hepatic: Recent Labs Component Name 12/11/22 0402 12/10/22 0344 12/09/22 0552 11/26/22 0310 11/25/22 0335 11/04/22 0633 [...] YEASTBUDDING - - Few* Microbiology: Reviewed in [facility] Imaging: Reviewed in [facility] Assessment and Plan: #Dysphagia s/p PEG placement #Severe Protein Calorie Malnutrition -??Tube feeds via PEG for nutrition at home - [employer] consulted - over the last 2 years [...] HTN at baseline; was not on any MANAGER SECURITY AND SAFETY meds - CT PE negative, TSH wnl -??24h urine metanephrines WNL -??Cardiology consult: consider workup for pheochromocytoma, titrate BP with gtts and transition with oral antihypertensives ?? #QTc prolongation -??Baseline 455,??prolonged to 526, most recent EKG 11/29 438 -----PLAN: -??Continue to monitor -??Avoid QT-prolonging medications ?? #PVD s/p L AKA -??On MANAGER SECURITY AND SAFETY atorvastatin 40mg -??May resume??ASA??if no bleeding -----PLAN: - Will consider restarting ASA 12/13 if tolerates IR procedure.? 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 -??Surgical removal of bleeding polyp aborted due to Vtach run -??Epistat in place to control bleeding; posterior balloon deflated -??Extubated on 12/06 -----PLAN: -??SpO2 goal of 90% -??Continue MANAGER SECURITY AND SAFETY guaifenesin, levalbuterol -??Hold MANAGER SECURITY AND SAFETY scopolamine??patch -??f/u outpatient ENT ?? #Concern for [...] Left Sided Deficits #Dementia #Seizure Disorder -??On MANAGER SECURITY AND SAFETY atorvastatin 40mg, Depakote 500mg q6h, Clobazam 20mg BID, ??Lacosamide 200mg BID, Midazolam 5mg nasal spray PRN -----PLAN: -??MANAGER SECURITY AND SAFETY ASA??were held??due to??recent??bleeding, may resume if no epistaxis/nasal polyp bleeding - 12/11: discussed resuming ASA, will restart 12/13 after procedure ?? #BPH - on MANAGER SECURITY AND SAFETY tamsulosin 0.4mg Lines: Trach collar, Jensen, PEG tube, PIV Prophylaxis: GI - none DVT - SCDs, Lovenox Nutrition: DIET TUBE FEEDING CONTINUOUS DIET NPO Except: NO EXCEPTIONS Code Status: Full Code Consults: IP CONSULT TO OTOLARYNGOLOGY IP CONSULT TO NUTRITIONAL SERV IP CONSULT TO RESPIRATORY IP CONSULT TO DIRECTOR OF INTERCOLLEGIATE ATHLETICS IP CONSULT TO NUTRITIONAL SERV IP CONSULT [...] maintained or improved Outcome: Progressing * Mely Layne, MINH/ONI - 12/10/2022 12:04 PM CDT Nutrition Re-Assessment [...] L AKA, and HTN who presents to [facility] from [facility]) for acute on chronic hypoxic respiratory failure [...] incision on nose Estimated Energy Needs: KCAL: 8538-1735 (30-35kcal/kg (ABW)) Protein (g): 90g (1.3g/kg (ABW)) [...] Mely Layne RD/MARQUISE, LD Ascom: [id number] * Suzy Farmer RN - 12/10/2022 9:35 AM CDT Care Coordination Progress Note Anticipated level of care at discharge: Care Home - Medicaid Pt new to my caseload Discharge Plan: SW following for placement to [facility]. Pt needing GJ tube for nutritional needs. READMISSION RISK SCORE is 27 at 9:36 AM 12/10/2022. Anticipated Discharge Date: 12/10/22 Patient/Family provided with list of resources? Yes Preferred Provider / High Quality Network List given?: Unknown Reason for provider choice: Pt. choice - previous provider Family Support (Name and Phone): Extended Emergency Contact Information Primary Emergency Contact: Adriane Hilliard Mobile Relation: Sister Director Of Sleep needed? No Secondary Emergency Contact: Amarjit Tabor [facility] Relation: Brother Transportation at Discharge: Ambulance Equipment at Home: Equipment at Home: Facility Equipment List DME patient requires but does not have: DME Provider: Medication affordability concerns: No Follow Up Appointment: Transportation to MD: Ambulance Auth Number (if required): NH: DME: Medications: Transportation: Name: Suzy Farmer RN Phone: [phone] * Lula Perrin PA - 12/10/2022 9:00 [...] Perrin PA-C Vascular and Interventional Radiology [facility] [phone] * Clover Tucker DO - 12/10/2022 7:07 AM CDT Internal [...] % Max: 100 %] Date 12/09/22699 - 12/10/22 0612/10/22699 - 12/11/22 0659 Shift 0901-2278 0889-5198 24 Hour Total 2261-5204 5289-6812 24 Hour Total INTAKE Other 600 600 [...] Data Review CBC: Recent Labs Component Name 12/10/2234312/09/2255112/08/22427 WBC 6.9 7.1 8.7 HGB 13.0 12.0 11.8* PLTCOUNT 266 295 343 MCV 92.4 90.1 93.1 BMP: Recent Labs Component Name 12/10/2234312/09/2255112/08/22427 NA 139 138 137 POTASSIUM 4.8* 4.5 4.6* CL 104 106 104 CO2 28 27 26 BUN 15 13 16 CREATININE 0.50* 0.47* 0.49* EGFR >90 >90 >90 GLUCOSE 88 112 105 CALCIUM 10.4* 10.1 10.6* ANIONGAP 12 10 12 Recent Labs Component Name 12/10/2234312/09/2252 12/08/22427 PHOS 2.9 2.8 2.8 MAGNESIUM 1.7 1.8 1.9 Hepatic: Recent Labs Component Name 12/10/2234312/09/2255112/08/228 11/26/22 0310 11/25/22 0335 11/04/22 0633 10/09/22 [...] YEASTBUDDING - - Few* Microbiology: Reviewed in [facility] Imaging: Reviewed in [facility] Assessment and Plan: #Dysphagia s/p PEG placement #Severe Protein Calorie Malnutrition -??Tube feeds via PEG for nutrition at home - [employer] consulted - over the last 2 years [...] HTN at baseline; was not on any MANAGER SECURITY AND SAFETY meds - CT PE negative, TSH wnl -??24h urine metanephrines WNL -??Cardiology consult: consider workup for pheochromocytoma, titrate BP with gtts and transition with oral antihypertensives ?? #QTc prolongation -??Baseline 455,??prolonged to 526, most recent EKG 11/29 438 -----PLAN: -??Continue to monitor -??Avoid QT-prolonging medications ?? #PVD s/p L AKA -??On MANAGER [employer]URITY [employer] SAFETY atorvastatin 40mg -??May resume??ASA??if no bleeding -----PLAN: - Will consider restarting ASA 12/11 if tolerates GI/IR procedure. ?? #Acute on Chronic Hypoxic Respiratory Failure s/p tracheostomy #Antrochoanal Polyp c/b bleeding -??Tracheostomy placed Jun 2022 during admission for aspiration pneumonia -??In retirement facility, 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 -??Surgical removal of bleeding polyp aborted due to Vtach run -??Epistat in place to control bleeding; posterior balloon deflated -??Extubated on 12/06 -----PLAN: -??SpO2 goal of 90% -??Continue MANAGER SECURITY AND SAFETY guaifenesin, levalbuterol -??Hold MANAGER SECURITY AND SAFETY scopolamine??patch -??f/u outpatient ENT ?? #Concern for Ventilator-Associated Pneumonia -??Patient developed low-grade fever on 7/2/23 -??Heavy pseudomonas growth and acinetobacter??in sputum cx [...] Left Sided Deficits #Dementia #Seizure Disorder -??On MANAGER SECURITY AND SAFETY atorvastatin 40mg, Depakote 500mg q6h, Clobazam 20mg BID, ??Lacosamide 200mg BID, Midazolam 5mg nasal spray PRN -----PLAN: -??MANAGER SECURITY AND SAFETY ASA??were held??due to??recent??bleeding, may resume if no epistaxis/nasal polyp bleeding - 12/10: discussed resuming ASA, will restart 12/11 if GI/IR procedure is well tolerated ?? #BPH - on MANAGER [employer]ITY [employer] SAFETY tamsulosin 0.4mg Lines: Trach collar, Jensen, PEG tube, PIV Prophylaxis: GI - none DVT - SCDs, Lovenox Nutrition: DIET NPO Except: NO EXCEPTIONS Code Status: Full Code Consults: IP CONSULT TO OTOLARYNGOLOGY IP CONSULT TO NUTRITIONAL SERV IP CONSULT TO RESPIRATORY IP CONSULT TO DIRECTOR OF INTERCOLLEGIATE ATHLETICS IP CONSULT TO NUTRITIONAL SERV IP CONSULT TO NUTRITIONAL SERV IP CONSULT TO GENERAL SURGERY IP CONSULT TO INFECTIOUS DISEASES IP CONSULT TO INTERVENTIONAL RADIOLOGY This patient will be discussed with the Attending Dr. Macho Tucker, Internal Medicine, PGY-1 12/10/2022 7:08 AM Associated [...] Service: 12/10/2022 Dina Pritchard DO * Mariajose Estrada, ALFRED - 12/10/2022 5:31 AM CDT Problem: Fall [...] Facility Referral Followup Level of Care (SNF/Medicaid NH/Rehab/Jail Care/LTACH): SNF Pt a resident of [facility] with plans to return once medically ready. Updates sent to facility. Pt is pending placement of a GJ tube for nutrition. SW to continue to follow. Referrals initiated: Continued Care and Services - Admitted Since 11/24/2022 Destination Service Provider Request Status Selected Services Address Phone Fax Patient Preferred [facility] (formerly [facility] and [facility])Pending - Request Sent N/A [phone] [facility] [phone] -- Current Capacity last updated by Yu Nguyễn on 04/21/2022 1237 118 If Medicare-3 day qualifying stay verified: Yes monitoring facility responses Comments/changes: Name: CLARITA Thornton Phone: [phone] * Clover Tucker, - 12/09/2022 8:34 AM CDT Internal Medicine Progress Note Patient Name: Mojgan Tabor (62 year old) Room Number: 613/01 Hospital Day: 14 Admit Date: 11/24/2022 Subjective: Interval history: Patient seen and examined. No acute events overnight. Spoke with patients sister, Nettie, last nightdiscussing potential for IR procedure for [...] % Max: 100 %] Date 12/08/22699 - 12/09/22 0612/09/22699 - 12/10/22 0659 Shift 8669-6202 9611-1727 24 Hour Total 8156-5695 4568-5476 24 Hour Total INTAKE Tube 150 150 [...] Data Review CBC: Recent Labs Component Name 12/09/2252 12/08/2242712/07/228 WBC 7.1 8.7 10.4 HGB 12.0 11.8* 11.2* PLTCOUNT 295 343 426* MCV 90.1 93.1 92.5 BMP: Recent Labs Component Name 12/09/2252 07/05/21 42812/07/22227 NA 138 137 137 POTASSIUM 4.5 4.6* 4.7* CL 106 104 103 CO2 27 26 27 BUN 13 16 18 CREATININE 0.47* 0.49* 0.47* EGFR >90 >90 >90 GLUCOSE 112 105 95 CALCIUM 10.1 10.6* 10.6* ANIONGAP 10 12 12 Recent Labs Component Name 12/09/22 0552 12/08/228 12/07/22227 PHOS 2.8 2.8 3.0 MAGNESIUM 1.8 1.9 1.8 Hepatic: Recent Labs Component Name 12/09/22 0552 12/08/228 12/07/2222711/26/22 0310 11/25/22 0335 11/04/22 0633 10/09/22 1204 [...] Coagulation: Recent Labs Component Name 08/28/22 2224 06/27/222214 PT 15.2* 12.8 INR 1.2 1.0 TSH: [...] YEASTBUDDING - - Few* Microbiology: Reviewed in [facility] Imaging: Reviewed in [facility] Assessment and Plan: #Dysphagia s/p PEG placement #Severe Protein Calorie Malnutrition -??Tube feeds via PEG for nutrition at home - [employer] consulted - over the last 2 years [...] HTN at baseline; was not on any MANAGER SECURITY AND SAFETY meds - CT PE negative, TSH wnl -??24h urine metanephrines WNL -??Cardiology consult: consider workup for pheochromocytoma, titrate BP with gtts and transition with oral antihypertensives ?? #QTc prolongation -??Baseline 455,??prolonged to 526, most recent EKG 11/29 438 -----PLAN: -??Continue to monitor -??Avoid QT-prolonging medications ?? #PVD s/p L AKA -??On MANAGER [employer]URITY [employer] SAFETY atorvastatin 40mg -??May resume??ASA??if no bleeding -----PLAN: - 12/09 discussed resuming ASA. Will consider restarting it 12/10 if tolerates IR procedure. ?? 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 -??Surgical removal of bleeding polyp aborted due to Vtach run -??Epistat in place to control bleeding; posterior balloon deflated -??Extubated on 12/06 -----PLAN: -??SpO2 goal of 90% -??Continue MANAGER SECURITY AND SAFETY guaifenesin, levalbuterol -??Hold MANAGER [employer]URITY AND SAFETY scopolamine??patch -??f/u outpatient ENT ?? #Concern for [...] Left Sided Deficits #Dementia #Seizure Disorder -??On MA[employer]GER [employer] SAFETY atorvastatin 40mg, Depakote 500mg q6h, Clobazam 20mg BID, ??Lacosamide 200mg BID, Midazolam 5mg nasal spray PRN -----PLAN: -??MANAGER SECURITY AND SAFETY ASA??were held??due to??recent??bleeding, may resume if no epistaxis/nasal polyp bleeding - 12/09: discussed resuming ASA, will restart 12/10 if IR procedure is well tolerated ?? #BPH - on MA[employer]GER [employer] SAFETY tamsulosin 0.4mg Lines: Trach collar, Jensen, PEG tube, PIV Prophylaxis: GI - none DVT - SCDs, Lovenox Nutrition: DIET NPO Except: NO EXCEPTIONS Code Status: Full Code Consults: IP CONSULT TO OTOLARYNGOLOGY IP CONSULT TO NUTRITIONAL SERV IP CONSULT TO RESPIRATORY IP CONSULT TO DIRECTOR OF INTERCOLLEGIATE ATHLETICS IP CONSULT TO NUTRITIONAL SERV IP CONSULT [...] Service: 12/09/2022 Dina Pritchard DO * Mara Sanders, RN - 12/09/2022 3:24 AM CDT Problem: [...] transfer. Anticipated level of care at discharge: Care Home - Medicaid [place] Readmit Risk: 27 [...] 12/07/2022. Continue tofollow. Ivy Mata RN, BSN Immigration Manager [phone] * Clover Tucker DO - 12/08/2022 8:20 [...] Gastric emptying study to be completed with [facility] on 12/07/2022 to assess candidacy for GJ tube. Objective: T: 98.4 ??F (36.9 ??C) [Temp Min: 98.4 ??F (36.9 ??C) Max: 99.1 ??F (37.3 ??C)] HR: 94[Pulse Min: 89 Max: 96] BP: 110/76[BP Min: 110/76 Max: 136/73] MAP: 86[MAP (mmHg) Min: 84 Max: 92] RR: 17[Resp Min: 17 Max: 21] Sat: 93 %[SpO2 Min: 93 % Max: 100 %] Date 12/07/22699 - 12/08/22 0612/08/22699 - 12/09/22 0659 Shift 1899-0659 24 Hour Total 1899-0659 24 Hour Total INTAKE Tube 40 40 Shift Total(mL/kg) 40(0.6) 40(0.6) OUTPUT Urine(mL/kg/hr) 440(0.5) 1500(1.8) 1940(1.1) Shift Total(mL/kg) 440(6.2) 1500(21.2) 1940(27.4) NET -400 -1500 -190 Weight (kg) 70.8 70.8 70.8 70.8 70.8 [...] 1.8 2.0 Hepatic: Recent Labs Component Name 12/08/2242712/07/2222712/06/22 0310 11/26/22 [...] YEASTBUDDING - - Few* Microbiology: Reviewed in [facility] Imaging: Reviewed in [facility] Assessment and Plan: #Dysphagia s/p PEG placement #Severe Protein Calorie Malnutrition - Tube feeds via PEG for nutrition at home - [employer] consulted - over the last 2 years [...] HTN at baseline; was not on any MANAGER SECURITY AND SAFETY meds - CT PE negative, TSH wnl -??24h urine metanephrines WNL - Cardiology consult: consider workup for pheochromocytoma, titrate BP with gtts and transition with oral antihypertensives ?? #QTc prolongation - Baseline 455,??prolonged to 526, most recent EKG 11/29 438 -----PLAN: -??Continue to monitor -??Avoid QT-prolonging medications ?? #PVD s/p L AKA - On MANAGER SECURITY AND SAFETY atorvastatin 40mg -??May resume??ASA??if no bleeding ?? #Acute on Chronic Hypoxic Respiratory Failure s/p tracheostomy #Antrochoanal Polyp c/b bleeding - Tracheostomy placed Jun 2022 during admission for aspiration pneumonia -??In retirement facility, 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 - Surgical removal of bleeding polyp aborted due to Vtach run - Epistat in place to control bleeding; posterior balloon deflated -??Extubated on 12/06 -----PLAN: -??SpO2 goal of 90% -??Continue MANAGER SECURITY AND SAFETY guaifenesin, levalbuterol -??Hold MANAGER SECURITY AND SAFETY scopolamine??patch -??f/u outpatient ENT ?? #Concern for [...] Sided Deficits #Dementia #Seizure Disorder - On MANAGER [employer]ITY [employer] SAFETY atorvastatin 40mg, Depakote 500mg q6h, Clobazam 20mg BID, ??Lacosamide 200mg BID, Midazolam 5mg nasal spray PRN -----PLAN: -??MANAGER SECURITY AND SAFETY ASA??were held??due to??recent??bleeding, may resume if no epistaxis/nasal polyp bleeding - 12/08: discuss on rounds 12/09 if should resume ASA ?? #BPH - on MANAGER [employer]ITY [employer] SAFETY tamsulosin 0.4mg Lines: Trach collar, Jensen, PEG tube, PIV Prophylaxis: GI - none DVT - SCDs, Lovenox Nutrition: DIET NPO Except: NO EXCEPTIONS Code Status: Full Code Consults: IP CONSULT TO OTOLARYNGOLOGY IP CONSULT TO NUTRITIONAL SERV IP CONSULT TO RESPIRATORY IP CONSULT TO DIRECTOR OF INTERCOLLEGIATE ATHLETICS IP CONSULT TO NUTRITIONAL SERV IP CONSULT [...] status (CMS/HCC) (POA: Yes) Tracheostomy in place (CMS/[facility]) (POA: Yes) Uncontrolled hypertension (POA: No) Plan [...] Service: 12/08/2022 Dina Pritchard DO * Nano Andrade RN - 12/08/2022 1:14 AM CDT Problem: Fall [...] be managed safely Outcome: Progressing * Clover Tucker DO - 12/07/2022 3:37 PM CDT Internal Medicine Progress Note Patient Name: Mojgan Tabor (62 year old) Room Number: 613/01 Hospital Day: 12 Admit Date: 11/24/2022 Subjective: Interval history: Patient seen and examined. No acute events overnight. Patient is an ICU transfer. Patient seen after he returned from gastric emptying study. Patient sister and POA, Adriane, at bedside to help answer questions. Patient [...] Gastric emptying study to be completed with [facility] on 12/07/2022 to assess candidacy for [...] 12/06/22699 - 12/07/2265812/07/22699 - 12/08/22 0659 Shift 2881-1956 3227-6718 24 Hour Total 5378-4744 9403-4294 24 Hour Total INTAKE I.V.(mL/kg/hr) 294.8(0.4) 85.6(0.1) 380.3(0.2) Tube 500 300 800 40 40 Enteral 776 748 0670 Shift Total(mL/kg) 1554.8(22.6) 815.6(11.5) 2370.3(33.5) 40(0.6) 40(0.6) [...] 2.0 1.9 Hepatic: Recent Labs Component Name 12/07/2222712/06/2230912/05/2231711/26/22 03111/25/22 0335 11/04/22 0633 10/09/22 1204 PROT - [...] displayed. Coagulation: Recent Labs Component Name 08/28/22 22206/27/222214 PT 15.2* 12.8 INR 1.2 1.0 TSH: [...] YEASTBUDDING - - Few* Microbiology: Reviewed in [facility] Imaging: Reviewed in [facility] Assessment and Plan: #Dysphagia s/p PEG placement #Severe Protein Calorie Malnutrition - Tube feeds via PEG for nutrition at home - [employer] consulted - over the last 2 years [...] HTN at baseline; was not on any MANAGER SECURITY AND SAFETY meds - CT PE negative, TSH wnl -??24h urine metanephrines WNL - Cardiology consult: consider workup for pheochromocytoma, titrate BP with gtts and transition with oral antihypertensives #QTc prolongation - Baseline 455, prolonged to 526, most recent EKG 11/29 438 -----PLAN: -??Continue to monitor - Avoid QT-prolonging medications #PVD s/p L AKA - On MANAGER SECURITY AND SAFETY atorvastatin 40mg - May resume ASA??if no bleeding #Acute on Chronic Hypoxic Respiratory Failure s/p tracheostomy #Antrochoanal Polyp c/b bleeding - Tracheostomy placed Jun 2022 during admission for aspiration pneumonia -??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 - Surgical removal of bleeding polyp aborted due to Vtach run - Epistat in place to control bleeding; posterior balloon deflated - Extubated on 12/06 -----PLAN: -??SpO2 goal of 90% -??Continue MANAGER SECURITY AND SAFETY guaifenesin, levalbuterol -??Hold MANAGER SECURITY AND SAFETY scopolamine??patch -??f/u outpatient ENT #Concern for Ventilator-Associated [...] Sided Deficits #Dementia #Seizure Disorder - On MANAGER SECURITY AND SAFETY atorvastatin 40mg, Depakote 500mg q6h, Clobazam 20mg BID, ??Lacosamide 200mg BID, Midazolam 5mg nasal spray PRN -----PLAN: - MANAGER SECURITY AND SAFETY ASA??were held due to??recent??bleeding, may resume if no epistaxis/nasal polyp bleeding #BPH - on MANAGER SECURITY AND SAFETY tamsulosin 0.4mg Lines: Trach collar, Jensen, PEG tube, PIV Prophylaxis: GI - none DVT - SCDs, Lovenox Nutrition: DIET TUBE FEEDING CONTINUOUS DIET NPO Except: NO EXCEPTIONS Code Status: Full Code Consults: IP CONSULT TO OTOLARYNGOLOGY IP CONSULT TO NUTRITIONAL SERV IP CONSULT TO RESPIRATORY IP CONSULT TO DIRECTOR OF INTERCOLLEGIATE ATHLETICS IP CONSULT TO NUTRITIONAL SERV IP CONSULT TO NUTRITIONAL SERV IP CONSULT TO GENERAL SURGERY IP CONSULT TO INFECTIOUS DISEASES This patient will be discussed with the Attending Dr. Macho Tucker DO Internal Medicine, PGY-1 12/07/2022 3:37 PM Associated attestation - Dina Pritchard DO - 12/09/2022 8:50 PM CDT I have reviewed the findings and plan of care as documented by the resident. In addition: Please see attestation from progress note 12/08. Date of Service: 12/08/2022 Dina Pritchard DO * Ana Castro, MINH/ONIN - 12/07/2022 2:05 PM CDT Nutrition Re-Assessment [...] L AKA, and HTN who presents to [facility] from [facility] for acute on chronic hypoxic respiratory failure [...] Laboratory values reviewed. Recent Labs Component Name 12/07/22 0228 12/06/22 0310 12/05/22 0318 11/26/22 0310 11/25/22 0335 11/04/22 0633 [...] incision on nose Estimated Energy Needs: KCAL: 1648-8176 (30-35kcal/kg (ABW)) Protein (g): 90g (1.3g/kg (ABW)) [...] Gastric emptying study to be completed with [facility] on 12/07/2022 to assess candidacy for [...] ] PT [ ] OT [ ] [employer] [ ] Wound Care U Uncertainty Measure/Diagnostic [...] 1:08 PM Patient: Mojgan Tabor (:1960) Room: [facility] Admit Date: 11/24/2022. Hospital Day: 12 Reason [...] Gastric emptying study to be completed with [facility] on 12/07/2022 to assess candidacy for [...] affect Labs: CBC: Recent Labs Component Name 12/07/22 0228 07/10/30912/05/22317 WBC 10.4 7.3 8.5 HGB 11.2* 11.1* [...] ABGs: No results for input(s): PHART, PO2ART, [id number], BEART in the last 21043 hours. Micro: none Imaging: Imaging reviewed. Assessment: [...] Sided Deficits #Dementia #Seizure Disorder - on MANAGER SECURITY AND SAFETY atorvastatin 40mg, Depakote 500mg q6h, Clobazam 20mg BID, ??Lacosamide 200mg BID, Midazolam 5mg nasal spray PRN - MANAGER SECURITY AND SAFETY ASA??were held due to??recent??bleeding, may resume if [...] HTN at baseline; was not on any MANAGER SECURITY AND SAFETY meds - CT PE negative, TSH wnl -??24h urine metanephrines WNL - cardiology consult: consider workup for pheochromocytoma, titrate BP with gtts and transition with oral antihypertensives ?? #QTc prolongation - baseline 455, prolonged to 526, most recent EKG 11/29 438 -??continue to monitor - avoid QT-prolonging medications ?? #PVD s/p L AKA - on MANAGER SECURITY AND SAFETY atorvastatin 40mg - may resume ASA??if no bleeding ?? Pulmonary:?? #Acute on Chronic Hypoxic Respiratory Failure s/p tracheostomy #Antrochoanal Polyp c/b bleeding - tracheostomy placed Jun 2022 during admission for aspiration pneumonia -??In retirement facility, 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 - surgical removal of bleeding polyp aborted due to Vtach run - epistat in place to control bleeding; posterior balloon deflated - extubated on 12/06 -??SpO2 goal of 90% -??continue MANAGER SECURITY AND SAFETY guaifenesin, levalbuterol -??hold MANAGER SECURITY AND SAFETY scopolamine??patch -??f/u outpatient ENT ?? GI:?? #Dysphagia s/p PEG placement #Severe Protein Calorie Malnutrition - tube feeds via PEG for nutrition at home - [employer] consulted - over the last 2 years they have seen the patient several times and failed swallowstudy - Gastric emptying study today 12/07 with [facility] to assess candidacy for GJ tube placement by IR, resume feeds after study Renal:?? #BPH - on MANAGER SECURITY AND SAFETY tamsulosin 0.4mg Endocrine: BGM goal 140-180 mg/dL [...] Mely Rodriguez - 12/07/2022 9:43 AM CDT Plastic Manager came for a follow up visit. Patient's eyes were open and RN had just finished checking on him. Patient can't speak but nodded yes when asked if he would appreciate a prayer. Plastic Manager prayed,using the phrase God is good, all the time (all the time, God is good) as family had previously informed Plastic Manager that patient loved those words. No other needs were expressed. Plastic Manager assured patient of the ongoing availability of pastoral care if/when needed. 440/01 Mely Rodriguez 12/07/2022 9:44 AM #[id number] * Tejas Jeffries DO - 12/06/2022 7:15 PM CDT MICU Progress Note 12/06/2022 7:15 PM Patient: Mojgan Tabor (:1960) Room: [facility]/ Admit Date: 11/24/2022. Hospital Day: 11 Reason [...] treated with??Cefepime. Interval History: Overnight, extubated to F/trach collar. Cefepime until 0300 12/07/2022. Scheduled for gastric emptying study with [facility] tomorrow 12/07/2022 Objective: Vitals: 12/06/22 1500 12/06/22 [...] 2.7* 2.8 Hepatic: Recent Labs Component Name 12/06/2230912/05/2231712/04/22 0327 11/26/22 03111/25/22 0335 11/04/22 0633 10/09/22 1204 ALT [...] ABGs: No results for input(s): PHART, PO2ART, [id number], BEART in the last 91213 hours. Micro: none Imaging: Imaging reviewed. Assessment: [...] Sided Deficits #Dementia #Seizure Disorder - on MANAGER SECURITY AND SAFETY atorvastatin 40mg, Depakote 500mg q6h, Clobazam 20mg BID, ??Lacosamide 200mg BID, Midazolam 5mg nasal spray PRN -??holding MANAGER SECURITY AND SAFETY ASA??due to??recent??bleeding ?? #Sedation -??Sedation no longer [...] HTN at baseline; was not on any MANAGER SECURITY AND SAFETY meds - CT PE negative, TSH wnl -??24h urine metanephrines WNL - cardiology consult: consider workup for pheochromocytoma, titrate BP with gtts and transition with oral antihypertensives ?? #QTc prolongation - baseline 455 - prolonged to 526 on most recent EKG >??continue to monitor > avoid QT-prolonging medications ?? #PVD s/p L AKA - on MANAGER SECURITY AND SAFETY atorvastatin 40mg - holding MANAGER SECURITY AND SAFETY ASA??due to bleeding ?? Pulmonary:?? 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 - surgical removal of bleeding polyp aborted due to Vtach run - epistat in place to control bleeding; posterior balloon deflated this AM - intubated with mechanical ventilation - CXR: tracheostomy tube stable in position -??SpO2 goal of 90% >??continue MANAGER SECURITY AND SAFETY guaifenesin, levalbuterol >??hold MANAGER SECURITY AND SAFETY scopolamine??patch >??f/u outpatient ENT ?? GI:?? #Dysphagia s/p PEG placement #Severe Protein Calorie Malnutrition - tube feeds via PEG for nutrition at home - [employer] consulted - over the last 2 years they have seen the patient several times and failed swallowstudy - Gastric emptying study tomorrow AM with [facility] to assess candidacy for GJ tube placement by IR , NPO at midnight Renal:?? #BPH - on MANAGER SECURITY AND SAFETY tamsulosin 0.4mg Endocrine: BGM goal 140-180 mg/dL [...] ICU Monitoring Code Status:?FULL Tejas Jeffries DO Associated attestation - Stephen Witt MD - [...] Note Anticipated level of care at discharge: Care Home - Medicaid Discharge Plan: Discharge needs pending [...] Emergency Contact: Adriane Hilliard Mobile Relation: Sister Director Of Sleep needed? No Secondary Emergency Contact: Amarjit Tabor [facility] Relation: Brother Patient is alert & orientated [...] Medications: Transportation: Name: Felicity Lofton RN Phone: [phone] * Tamie Dhaliwal RN - 12/05/2022 9:00 [...] 6:13 AM Patient: Mojgan Tabor (:1960) Room: [facility] Admit Date: 11/24/2022. Hospital Day: 10 Reason [...] affect Labs: CBC: Recent Labs Component Name 12/05/2231712/04/227 12/03/22228 WBC 8.5 8.6 9.4 HGB 10.6* 10.0* 9.3* HCT 32.3* 31.2* 28.3* BMP: Recent Labs Component Name 07/02/19 31812/04/2232612/03/22228 NA 137 141 143 CL 105 108* 111* CO2 26 27 22 BUN 16 18 18 CREATININE 0.43* 0.52* 0.50* CALCIUM 10.3* 10.2 9.5 PHOS 2.7* 2.8 2.6* Hepatic: Recent Labs Component Name 12/05/2231712/04/2232612/03/2222811/26/22 03111/25/22 0335 11/04/22 0633 10/09/22 1204 ALT [...] ABGs: No results for input(s): PHART, PO2ART, [id number], BEART in the last 00283 hours. Micro: none Imaging: Imaging reviewed. Assessment: [...] Sided Deficits #Dementia #Seizure Disorder - on MANAGER SECURITY AND SAFETY atorvastatin 40mg, Depakote 500mg q6h, Clobazam 20mg BID, ??Lacosamide 200mg BID, Midazolam 5mg nasal spray PRN -??holding MANAGER SECURITY AND SAFETY ASA??due to??recent??bleeding ?? #Sedation -??propofol discontinued on [...] HTN at baseline; was not on any MANAGER SECURITY AND SAFETY meds - IV nicardipine and fluid bolus [...] ?? #PVD s/p L AKA - on MANAGER SECURITY AND SAFETY atorvastatin 40mg - holding MANAGER SECURITY AND SAFETY ASA??due to bleeding ?? Pulmonary:?? #Acute on Chronic Hypoxic Respiratory Failure s/p tracheostomy #Antrochoanal Polyp c/b bleeding - tracheostomy placed Jun 2022 during admission for aspiration pneumonia -??In [facility], 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 - surgical removal of bleeding polyp aborted due to Vtach run - epistat in place to control bleeding; posterior balloon deflated this AM - intubated with mechanical ventilation - CXR: tracheostomy tube stable in position -??SpO2 goal of 90% >??continue [employer] guaifenesin, levalbuterol >??hold [employer] scopolamine??patch >??Continue??to wean from ventilator >??f/u outpatient ENT ?? GI:?? #Dysphagia s/p PEG placement #Severe Protein Calorie Malnutrition - tube feeds via PEG for nutrition at home - [employer] consulted - over the last 2 years they have seen the patient several times and failed swallowstudy. Especially with being on ventilator, they are unable to perform another swallow study. >??ACS??does not recommend placing??J tube.??Recommended gastric emptying study to assess candidacy for GJ tube placement by IR >??continue??diet NPO > F/u gastric study Renal:?? #BPH - on [employer] tamsulosin 0.4mg Endocrine: BGM goal 140-180 mg/dL [...] High Other specified rheumatoid arthritis, unspecified site (CMS/HCC) 06/26/2015 Priority: High Uncontrolled hypertension 11/28/2022 Priority: Not Prioritized Uncontrolled. V-tach ([facility]) 11/27/2022 Priority: Not Prioritized Nasal polyp 11/25/2022 Priority: Not Prioritized Hemoptysis 11/25/2022 Priority: Not Prioritized Acute blood loss anemia 11/25/2022 Priority: Not Prioritized PEG (percutaneous endoscopic gastrostomy) status ([facility]) 11/25/2022 Priority: Not Prioritized Tracheostomy in place ([facility]) 11/25/2022 Priority: Not Prioritized Pressure ulcer of right heel, stage 3 ([facility]) 10/17/2022 Priority: Not Prioritized Dementia, vascular ([facility]) 10/17/2022 Priority: Not Prioritized Atelectasis, right 07/05/2022 Priority: Not Prioritized Contrast-induced nephropathy 07/05/2022 Priority: Not Prioritized 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 Priority: Not Prioritized Leukocytosis, unspecified type 06/28/2022 Priority: Not Prioritized Sinus tachycardia 06/28/2022 Priority: Not Prioritized Hypoxia 06/28/2022 Priority: Not Prioritized Acute respiratory failure with hypoxia ([facility]) 06/28/2022 Priority: Not Prioritized Aspiration pneumonitis ([facility]) 06/13/2022 Priority: Not Prioritized Aspiration into airway 06/12/2022 Priority: Not Prioritized Protein-calorie malnutrition, unspecified severity ([facility]) 06/03/2022 Priority: Not Prioritized Abdominal pain, generalized 05/30/2022 Priority: Not Prioritized Lethargy 05/30/2022 Priority: Not Prioritized History of stroke 05/30/2022 Priority: Not Prioritized Acute on chronic respiratory failure with hypoxia ([facility]) 05/30/2022 Priority: Not Prioritized Bacteremia 03/11/2022 Priority: Not Prioritized Ulcer of left foot ([facility]) 03/11/2022 Priority: Not Prioritized PAD (peripheral artery disease) ([facility]) 03/11/2022 Priority: Not Prioritized Severe protein-calorie malnutrition ([facility]) 03/11/2022 Priority: Not Prioritized Status epilepticus ([facility]) 12/30/2021 Priority: Not Prioritized Seizure disorder ([facility]) 12/30/2021 Priority: Not Prioritized Seizures ([facility]) 08/13/2020 Priority: Not Prioritized Therapeutic procedure Priority: Not Prioritized Cerebrovascular accident ([facility]) 06/13/2019 Priority: Not Prioritized Insomnia 06/13/2019 Priority: [...] 8:18 AM Patient: Mojgan Tabor (:1960) Room: 440/01 Admit Date: 11/24/2022. Hospital Day: 9 Reason [...] Labs: CBC: Recent Labs Component Name 12/04/2232612/03/2222812/02/22 035 WBC 8.6 9.4 13.6* HGB 10.0* 9.3* [...] ABGs: No results for input(s): PHART, PO2ART, [id number], BEART in the last 35518 hours. Micro: none Imaging: none Assessment: V-tach [...] Sided Deficits #Dementia #Seizure Disorder - on [employer] atorvastatin 40mg, Depakote 500mg q6h, Clobazam 20mg BID, ??Lacosamide 200mg BID, Midazolam 5mg nasal spray PRN -??holding [employer] ASA??due to??recent??bleeding ?? #Sedation -??propofol discontinued on [...] HTN at baseline; was not on any [employer] meds - IV nicardipine and fluid bolus [...] ?? #PVD s/p L AKA - on [employer] atorvastatin 40mg - holding [employer] ASA??due to bleeding ?? Pulmonary:?? #Acute on Chronic Hypoxic Respiratory Failure s/p tracheostomy #Antrochoanal Polyp c/b bleeding - tracheostomy placed Jun 2022 during admission for aspiration pneumonia -??In retirement facility, 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 - surgical removal of bleeding polyp aborted due to Vtach run - epistat in place to control bleeding; posterior balloon deflated this AM - intubated with mechanical ventilation - CXR: tracheostomy tube stable in position -??SpO2 goal of 90% >??continue [employer] guaifenesin, levalbuterol >??hold [employer] scopolamine??patch > Continue to wean from ventilator > f/u outpatient ENT ?? GI:?? #Dysphagia s/p PEG placement #Severe Protein Calorie Malnutrition - tube feeds via PEG for nutrition at home - [employer] consulted - over the last 2 years they have seen the patient several times and failed swallowstudy. Especially with being on ventilator, they are unable to perform another swallow study. >??ACS??does not recommend placing??J tube. Recommended gastric emptying study to assess candidacy for GJ tube placement by IR >??continue??diet NPO > F/u gastric study, d/c motility agents Renal:?? #BPH - on [employer] tamsulosin 0.4mg Endocrine: BGM goal 140-180 mg/dL [...] Priority: High Alzheimer's disease with early onset ([facility]) 05/17/2019 Priority: High Paroxysmal tachycardia, unspecified ([facility]) 05/16/2019 Priority: High Alcohol abuse, uncomplicated 08/13/2015 Priority: High Benign neoplasm of prostate 06/26/2015 Priority: High Other specified rheumatoid arthritis, unspecified site ([facility]) 06/26/2015 Priority: High Uncontrolled hypertension 11/28/2022 Priority: Not Prioritized Uncontrolled. V-tach ([facility]) 11/27/2022 Priority: Not Prioritized Nasal polyp 11/25/2022 Priority: Not Prioritized Hemoptysis 11/25/2022 Priority: Not Prioritized Acute blood loss anemia 11/25/2022 Priority: Not Prioritized PEG (percutaneous endoscopic gastrostomy) status ([facility]) 11/25/2022 Priority: Not Prioritized Tracheostomy in place ([facility]) 11/25/2022 Priority: Not Prioritized Pressure ulcer of right heel, stage 3 ([facility]) 10/17/2022 Priority: Not Prioritized Dementia, vascular ([facility]) 10/17/2022 Priority: Not Prioritized Atelectasis, right 07/05/2022 Priority: Not Prioritized Contrast-induced nephropathy 07/05/2022 Priority: Not Prioritized 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 Priority: Not Prioritized Leukocytosis, unspecified type 06/28/2022 Priority: Not Prioritized Sinus tachycardia 06/28/2022 Priority: Not Prioritized Hypoxia 06/28/2022 Priority: Not Prioritized Acute respiratory failure with hypoxia ([facility]) 06/28/2022 Priority: Not Prioritized Aspiration pneumonitis ([facility]) 06/13/2022 Priority: Not Prioritized Aspiration into airway 06/12/2022 Priority: Not Prioritized Protein-calorie malnutrition, unspecified severity ([facility]) 06/03/2022 Priority: Not Prioritized Abdominal pain, generalized 05/30/2022 Priority: Not Prioritized Lethargy 05/30/2022 Priority: Not Prioritized History of stroke 05/30/2022 Priority: Not Prioritized Acute on chronic respiratory failure with hypoxia ([facility]) 05/30/2022 Priority: Not Prioritized Bacteremia 03/11/2022 Priority: Not Prioritized Ulcer of left foot ([facility]) 03/11/2022 Priority: Not Prioritized PAD (peripheral artery disease) ([facility]) 03/11/2022 Priority: Not Prioritized Severe protein-calorie malnutrition ([facility]) 03/11/2022 Priority: Not Prioritized Status epilepticus ([facility]) 12/30/2021 Priority: Not Prioritized Seizure disorder ([facility]) 12/30/2021 Priority: Not Prioritized Seizures ([facility]) 08/13/2020 Priority: Not Prioritized Therapeutic procedure Priority: Not Prioritized Cerebrovascular accident ([facility]) 06/13/2019 Priority: Not Prioritized Insomnia 06/13/2019 Priority: [...] 6:47 AM Patient: Mojgan Tabor (:1960) Room: [facility] Admit Date: 11/24/2022. Hospital Day: 8 Reason [...] 128/75 Pulse: (!) 111 106 106 Resp: 28 23 19 Temp: SpO2: 97% 92% 96% 96% Weight: [...] affect Labs: CBC: Recent Labs Component Name 12/03/2222812/02/22 0356 12/01/22 0338 WBC 9.4 13.6* 10.9* HGB 9.3* 9.6* 9.4* HCT 28.3* 29.2* 28.4* BMP: Recent Labs Component Name 12/03/2222812/02/22 0356 12/01/22 0338 NA 143 140 139 CL 111* 109* 109* CO2 23 BUN 18 14 10 CREATININE 0.50* 0.55* 0.53* CALCIUM 9.5 9.9 9.3 PHOS 2.6* 3.0 2.7* Hepatic: Recent Labs Component Name 12/03/2222812/02/22 03512/01/22 03311/26/22 0310 11/25/22 0335 11/04/22 0633 10/09/22 1204 [...] ABGs: No results for input(s): PHART, PO2ART, TTT5QJV, BEART in the last 93023 hours. Micro: none Imaging: Imaging reviewed. Assessment: [...] Sided Deficits #Dementia #Seizure Disorder - on [employer] atorvastatin 40mg, Depakote 500mg q6h, Clobazam 20mg BID, ??Lacosamide 200mg BID, Midazolam 5mg nasal spray PRN -??holding [employer] ASA??due to??recent??bleeding ?? #Sedation -??propofol discontinued on [...] HTN at baseline; was not on any [employer] meds - IV nicardipine and fluid bolus [...] ?? #PVD s/p L AKA - on [employer] atorvastatin 40mg - holding [employer] ASA due to bleeding ?? Pulmonary:?? 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 - surgical removal of bleeding polyp aborted due to Vtach run - epistat in place to control bleeding; posterior balloon deflated this AM - intubated with mechanical ventilation - CXR: tracheostomy tube stable in position -??SpO2 goal of 90% >??continue [employer] guaifenesin, levalbuterol >??hold [employer]AF[employer] scopolamine??patch > Continue to wean from ventilator Pharmacy> ID consult for bactrim. F/u reccs > f/u outpatient ENT ?? GI:?? #Dysphagia s/p PEG placement #Severe Protein Calorie Malnutrition - tube feeds via PEG for nutrition at home - [employer] consulted - over the last 2 years they have seen the patient several times and failed swallowstudy. Especially with being on ventilator, they are unable to perform another swallow study. > ACS does not recommend placing J tube. Recommended gastric emptying study to assess candidacy for GJ tube placement by IR > F/u gastric >??continue??diet NPO ?? Renal:?? #BPH - on [employer] tamsulosin 0.4mg Endocrine: BGM goal 140-180 mg/dL [...] Epilepsy, unspecified, not intractable, without status epilepticus ([facility]) 05/25/2019 Priority: High Hemiplegia and 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- dominant side ([facility]) 05/25/2019 Priority: High Alzheimer's disease with early onset ([facility]) 05/17/2019 Priority: High Paroxysmal tachycardia, unspecified ([facility]) 05/16/2019 Priority: High Alcohol abuse, uncomplicated 08/13/2015 Priority: High Benign neoplasm of prostate 06/26/2015 Priority: High Other specified rheumatoid arthritis, unspecified site ([facility]) 06/26/2015 Priority: High Uncontrolled hypertension 11/28/2022 Priority: Not Prioritized Uncontrolled. V-tach ([facility]) 11/27/2022 Priority: Not Prioritized Nasal polyp 11/25/2022 Priority: Not Prioritized Hemoptysis 11/25/2022 Priority: Not Prioritized Acute blood loss anemia 11/25/2022 Priority: Not Prioritized PEG (percutaneous endoscopic gastrostomy) status ([facility]) 11/25/2022 Priority: Not Prioritized Tracheostomy in place ([facility]) 11/25/2022 Priority: Not Prioritized Pressure ulcer of right heel, stage 3 ([facility]) 10/17/2022 Priority: Not Prioritized Dementia, vascular ([facility]) 10/17/2022 Priority: Not Prioritized Atelectasis, right 07/05/2022 Priority: Not Prioritized Contrast-induced nephropathy 07/05/2022 Priority: Not Prioritized 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 Priority: Not Prioritized Leukocytosis, unspecified type 06/28/2022 Priority: Not Prioritized Sinus tachycardia 06/28/2022 Priority: Not Prioritized Hypoxia 06/28/2022 Priority: Not Prioritized Acute respiratory failure with hypoxia ([facility]) 06/28/2022 Priority: Not Prioritized Aspiration pneumonitis ([facility]) 06/13/2022 Priority: Not Prioritized Aspiration into airway 06/12/2022 Priority: Not Prioritized Protein-calorie malnutrition, unspecified severity ([facility]) 06/03/2022 Priority: Not Prioritized Abdominal pain, generalized 05/30/2022 Priority: Not Prioritized Lethargy 05/30/2022 Priority: Not Prioritized History of stroke 05/30/2022 Priority: Not Prioritized Acute on chronic respiratory failure with hypoxia ([facility]) 05/30/2022 Priority: Not Prioritized Bacteremia 03/11/2022 Priority: Not Prioritized Ulcer of left foot ([facility]) 03/11/2022 Priority: Not Prioritized PAD (peripheral artery disease) ([facility]) 03/11/2022 Priority: Not Prioritized Severe protein-calorie malnutrition ([facility]) 03/11/2022 Priority: Not Prioritized Status epilepticus ([facility]) 12/30/2021 Priority: Not Prioritized Seizure disorder ([facility]) 12/30/2021 Priority: Not Prioritized Seizures ([facility]) 08/13/2020 Priority: Not Prioritized Therapeutic procedure Priority: Not Prioritized Cerebrovascular accident ([facility]) 06/13/2019 Priority: Not Prioritized Insomnia 06/13/2019 Priority: [...] Bactrim. Awaiting gastric emptying study * Dimple Guerrero RCP - 12/02/2022 8:57 PM CDT Problem: Mechanical [...] Tri Morrison MD, PGY-5 General Surgery Resident [facility] * Leonie Turner MD - 12/02/2022 3:55 PM CDT Spoke extensively with POShiloh (sister) to provide updates about the care of her brother. She is frustrated that the J tube was not placed by [facility]. She wants to speak with the ACS - please reach out to her. * Teri Tariq - 12/02/2022 1:42 PM CDT Nutrition Re-Assessment [...] and HTN who presents to [facility] from [facility] ([place]) for acute on chronic hypoxic respiratory failure [...] incision on nose Estimated Energy Needs: KCAL: 2969-6276 (20-25kcal/kg ABW) Protein (g): 84-139 (1.2-2.0g/kg ABW) [...] Note Anticipated level of care at discharge: Care Home - Medicaid Discharge Plan: [facility] spoke with sister (SHARI) regarding LTAC referral. Sister was adamant that no referral be sent until she spoke with the MD. States they don't know him. They need to take out that Jtube because that's why he keeps aspirating and making him sick. They need to replace it and send him back to [facility]. CM will discuss during MICU [...] Emergency Contact: Adriane Hilliard Mobile Relation: Sister Director Of Sleep needed? No Secondary Emergency Contact: Amarjit Tabor [facility] Relation: Brother Patient is alert & orientated [...] Medications: Transportation: Name: Suresh Jaquez RN Phone: [phone] * Mely Rodriguez - 12/02/2022 9:36 AM CDT Plastic Manager came for a follow up visit. Patient remains intubated and sedated. Brother was in the roomand spoke about having confidence that this was all in God's hands. He said that his prayer is God's will be done. There were no current pastoral care needs. Brother was assured of the ongoing availability of pastoral care when / if needed. Mely Rodriguez 12/02/2022 9:38 AM #[id number] * [...] 9:59 AM Patient: Mojgan Tabor (:1960) Room: [facility] Admit Date: 11/24/2022. Hospital Day: 7 Reason for Admission: intra-operative Vtachy Hospital Course: Mojgan Tabor??with 62 M PMH [...] ABGs: No results for input(s): PHART, PO2ART, [id number], BEART in the last 75270 hours. Micro: heavy pseudomonas on sputum moderate sensitivity to zosyn. Imaging: Imaging reviewed. Assessment: PLAN: ?? Neurological:?? #History of CVA c/b Left Sided Deficits #Dementia #Seizure Disorder - on [employer] atorvastatin 40mg, Depakote 500mg q6h, Clobazam 20mg BID, ??Lacosamide 200mg BID, Midazolam 5mg nasal spray PRN - holding [employer] ASA due to??recent??bleeding #Sedation -??propofol discontinued on [...] HTN at baseline; was not on any [employer] meds - IV nicardipine and fluid bolus [...] ?? #PVD s/p L AKA - on [employer] atorvastatin 40mg - holding [employer]AF[employer] ASA due to bleeding ?? Pulmonary:?? #Acute on Chronic Hypoxic Respiratory Failure s/p tracheostomy #Antrochoanal Polyp c/b bleeding - tracheostomy placed Jun 2022 during admission for aspiration pneumonia - In retirement facility, 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 - surgical removal of bleeding polyp aborted due to Vtach run - epistat in place to control bleeding; posterior balloon deflated this AM - intubated with mechanical ventilation - CXR: tracheostomy tube stable in position - SpO2 goal of 90% > continue [employer] guaifenesin, levalbuterol > hold [employer]AF[employer] scopolamine patch until ENT recommends resuming > Spontaneous to wean from ventilator GI:?? #Dysphagia s/p PEG placement #Severe Protein Calorie Malnutrition - tube feeds via PEG for nutrition at home - [employer] consulted - over the last 2 years they have seen the patient several times and failed swallowstudy. Especially with being on ventilator, they are unable to perform another swallow study. > [facility] will not J tube placement.. > continue diet NPO ?? Renal:?? #BPH - on [employer] tamsulosin 0.4mg Endocrine: BGM goal 140-180 mg/dL [...] prevent life-threatening deterioration of the following: V-tach ([facility]) (POA: No) History of CVA (cerebrovascular accident) (POA: Yes) Seizure disorder (CMS/HCC) (POA: Yes) Acute on chronic respiratory failure with hypoxia (CMS/HCC) (POA: Yes) Protein-calorie malnutrition, unspecified severity (CMS/HCC) (POA: Yes) Sinus tachycardia (POA: Unknown) Dementia, vascular (CMS/HCC) (POA: Yes) Nasal polyp (POA: Yes) Hemoptysis (POA: Yes) Acute blood loss anemia (POA: Yes) PEG (percutaneous endoscopic gastrostomy) status ([facility]) (POA: Yes) Tracheostomy in place ([facility]) (POA: Yes) Uncontrolled hypertension (POA: No) Patient Active Problem List Diagnosis Date Noted COVID-19 04/14/2021 Priority: High History of CVA (cerebrovascular accident) 12/11/2020 Priority: High Cognitive communication deficit 08/25/2020 Priority: High Dysphagia, oropharyngeal phase 08/25/2020 Priority: High Epilepsy, unspecified, not intractable, without status epilepticus ([facility]) 05/25/2019 Priority: High Hemiplegia and 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- dominant side ([facility]) 05/25/2019 Priority: High Alzheimer's disease with early onset ([facility]) 05/17/2019 Priority: High Paroxysmal tachycardia, unspecified ([facility]) 05/16/2019 Priority: High Alcohol abuse, uncomplicated 08/13/2015 Priority: High Benign neoplasm of prostate 06/26/2015 Priority: High Other specified rheumatoid arthritis, unspecified site ([facility]) 06/26/2015 Priority: High Uncontrolled hypertension 11/28/2022 Priority: Not Prioritized Uncontrolled. V-tach ([facility]) 11/27/2022 Priority: Not Prioritized Nasal polyp 11/25/2022 Priority: Not Prioritized Hemoptysis 11/25/2022 Priority: Not Prioritized Acute blood loss anemia 11/25/2022 Priority: Not Prioritized PEG (percutaneous endoscopic gastrostomy) status ([facility]) 11/25/2022 Priority: Not Prioritized Tracheostomy in place ([facility]) 11/25/2022 Priority: Not Prioritized Pressure ulcer of right heel, stage 3 ([facility]) 10/17/2022 Priority: Not Prioritized Dementia, vascular ([facility]) 10/17/2022 Priority: Not Prioritized Atelectasis, right 07/05/2022 Priority: Not Prioritized Contrast-induced nephropathy 07/05/2022 Priority: Not Prioritized 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 Priority: Not Prioritized Leukocytosis, unspecified type 06/28/2022 Priority: Not Prioritized Sinus tachycardia 06/28/2022 Priority: Not Prioritized Hypoxia 06/28/2022 Priority: Not Prioritized Acute respiratory failure with hypoxia ([facility]) 06/28/2022 Priority: Not Prioritized Aspiration pneumonitis ([facility]) 06/13/2022 Priority: Not Prioritized Aspiration into airway 06/12/2022 Priority: Not Prioritized Protein-calorie malnutrition, unspecified severity ([facility]) 06/03/2022 Priority: Not Prioritized Abdominal pain, generalized 05/30/2022 Priority: Not Prioritized Lethargy 05/30/2022 Priority: Not Prioritized History of stroke 05/30/2022 Priority: Not Prioritized Acute on chronic respiratory failure with hypoxia ([facility]) 05/30/2022 Priority: Not Prioritized Bacteremia 03/11/2022 Priority: Not Prioritized Ulcer of left foot ([facility]) 03/11/2022 Priority: Not Prioritized PAD (peripheral artery disease) ([facility]) 03/11/2022 Priority: Not Prioritized Severe protein-calorie malnutrition ([facility]) 03/11/2022 Priority: Not Prioritized Status epilepticus ([facility]) 12/30/2021 Priority: Not Prioritized Seizure disorder ([facility]) 12/30/2021 Priority: Not Prioritized Seizures ([facility]) 08/13/2020 Priority: Not Prioritized Therapeutic procedure Priority: Not Prioritized Cerebrovascular accident ([facility]) 06/13/2019 Priority: Not Prioritized Insomnia 06/13/2019 Priority: [...] Outcome: Progressing * Melany Parmar RN - 12/01/2022 9:39 PM CDT [...] 30% FiO2 Post acute recommendation: Return to Care Home Insurance authorization is not required for post acute care needs Payer/Plan Subscriber Name Rel Member # Group # MEDICAID - [place] -* MOJGAN TABOR Kandi Vega [id number] [address] [address] Updates faxed to prior facility Continued Care and Services - Admitted Since 11/24/2022 Destination Service Provider Request Status Selected Services Address Phone Fax Patient Preferred [facility] (formerly [facility] and [facility])Pending - Request Sent N/A [id number] [facility] [phone] -- Current Capacity last updated by Yu Nguyễn on 04/21/2022 1237 118 Consult Hardness Inspector for any new social needs as they present prior to discharge See Nurse Case Management note(s) for medical updates and progress toward discharge/disposition plans Thank you, CLARITA Rico, PRACHI [facility] [phone] 12/01/2022 3:22 PM * Leonie Turner MD - 12/01/2022 12:11 PM CDT Spoke with sister (SHARI) again today. She said she was told by Dr. Harden (cardiology) and another provider that J tube is the better option for Mr. Tabor. Updated her about the followin. Weaning patient off the ventilator since he was in a tracheostomy collar in the [facility] care facility prior to admission. 2. [...] Mely Rodriguez - 12/01/2022 10:55 AM CDT Plastic Manager did initial visit with patient and his two sisters who were present at bedside. Patient had open eyes but didn't seem aware of people in the room. Sisters talked about how much patient likesthe phrase: God is good, all the time (All the time, God is good)!) Plastic Manager prayed with patient and family and family expressed appreciation. Plastic Manager assured them of the ongoing availability of pastoral care when/if needed. 440/ Mely Rodriguez 12/01/2022 10:58 AM #[phone] * [...] 7:20 AM Patient: Mojgan Tabor (:1960) Room: [facility] Admit Date: 11/24/2022. Hospital Day: 6 Reason [...] affect Labs: CBC: Recent Labs Component Name 12/01/22 0338 11/30/2231911/29/22311 WBC 10.9* 8.9 12.9* HGB 9.4* 8.0* 9.1* HCT 28.4* 24.8* 27.3* BMP: Recent Labs Component Name 12/01/22 0338 11/30/2231911/29/22311 NA 139 139 136 CL 109* 108* 108* CO2 BUN 10 8 11 CREATININE 0.53* 0.54* 0.47* CALCIUM 9.3 9.3 9.0 PHOS 2.7* 2.9 2.7* Hepatic: Recent Labs Component Name 12/01/22 03311/30/2231911/29/2231111/26/2230911/25/22 03311/04/22 0633 10/09/22 1204 ALT - - - [...] ABGs: No results for input(s): PHART, PO2ART, VVQ1BZE, BEART in the last 30281 hours. Micro: None Imaging: None Assessment: 62 [...] Sided Deficits #Dementia #Seizure Disorder - on MANA[employer] SAFETY atorvastatin 40mg, Depakote 500mg q6h, Clobazam 20mg BID, ??Lacosamide 200mg BID, Midazolam 5mg nasal spray PRN - holding [employer]AF[employer] ASA due to??recent??bleeding #Sedation -??propofol discontinued on [...] HTN at baseline; was not on any MANA[employer] SAF[employer] meds - IV nicardipine and fluid bolus [...] medications #PVD s/p L AKA - on [employer]AF[employer] atorvastatin 40mg - holding MA[employer]AF[employer] ASA due to bleeding ?? Pulmonary: #Acute on Chronic Hypoxic Respiratory Failure s/p tracheostomy #Antrochoanal Polyp c/b bleeding - tracheostomy placed Jun 2022 during admission for aspiration pneumonia - 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 - surgical removal of bleeding polyp aborted due to Vtach run - epistat in place to control bleeding; posterior balloon deflated this AM - intubated with mechanical ventilation - CXR: tracheostomy tube stable in position - SpO2 goal of 90% > continue [employer]AF[employer] guaifenesin, levalbuterol > hold [employer]AF[employer] scopolamine patch until ENT recommends resuming > Anticipating discharge to extermination supervisor care facility, we are currently weaning from ventilator - Social work and case management aware of anticipated discharge pending ACS consult (J-tube) and ventilator weaning. GI: #Dysphagia s/p PEG placement #Severe Protein Calorie Malnutrition - tube feeds via PEG for nutrition at home - [employer] consulted - over the last 2 years they have seen the patient several times and failed swallowstudy. Especially with being on ventilator, they are unable to perform another swallow study. > ACS consulted for J tube placement. F/u evaluation and reccs. > continue diet NPO Renal: #BPH - on [employer]AF[employer] tamsulosin 0.4mg Endocrine: BGM goal 140-180 mg/dL [...] cerebral infarction affecting right non- dominant side ([facility]) 05/25/2019 Priority: High Alzheimer's disease with early onset ([facility]) 05/17/2019 Priority: High Paroxysmal tachycardia, unspecified ([facility]) 05/16/2019 Priority: High Alcohol abuse, uncomplicated 08/13/2015 Priority: High Benign neoplasm of prostate 06/26/2015 Priority: High Other specified rheumatoid arthritis, unspecified site ([facility]) 06/26/2015 Priority: High Uncontrolled hypertension 11/28/2022 Priority: Not Prioritized Uncontrolled. V-tach ([facility]) 11/27/2022 Priority: Not Prioritized Nasal polyp 11/25/2022 Priority: Not Prioritized Hemoptysis 11/25/2022 Priority: Not Prioritized Acute blood loss anemia 11/25/2022 Priority: Not Prioritized PEG (percutaneous endoscopic gastrostomy) status ([facility]) 11/25/2022 Priority: Not Prioritized Tracheostomy in place ([facility]) 11/25/2022 Priority: Not Prioritized Pressure ulcer of right heel, stage 3 ([facility]) 10/17/2022 Priority: Not Prioritized Dementia, vascular ([facility]) 10/17/2022 Priority: Not Prioritized Atelectasis, right 07/05/2022 Priority: Not Prioritized Contrast-induced nephropathy 07/05/2022 Priority: Not Prioritized 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 Priority: Not Prioritized Leukocytosis, unspecified type 06/28/2022 Priority: Not Prioritized Sinus tachycardia 06/28/2022 Priority: Not Prioritized Hypoxia 06/28/2022 Priority: Not Prioritized Acute respiratory failure with hypoxia ([facility]) 06/28/2022 Priority: Not Prioritized Aspiration pneumonitis ([facility]) 06/13/2022 Priority: Not Prioritized Aspiration into airway 06/12/2022 Priority: Not Prioritized Protein-calorie malnutrition, unspecified severity ([facility]) 06/03/2022 Priority: Not Prioritized Abdominal pain, generalized 05/30/2022 Priority: Not Prioritized Lethargy 05/30/2022 Priority: Not Prioritized History of stroke 05/30/2022 Priority: Not Prioritized Acute on chronic respiratory failure with hypoxia ([facility]) 05/30/2022 Priority: Not Prioritized Bacteremia 03/11/2022 Priority: Not Prioritized Ulcer of left foot ([facility]) 03/11/2022 Priority: Not Prioritized PAD (peripheral artery disease) ([facility]) 03/11/2022 Priority: Not Prioritized Severe protein-calorie malnutrition ([facility]) 03/11/2022 Priority: Not Prioritized Status epilepticus ([facility]) 12/30/2021 Priority: Not Prioritized Seizure disorder ([facility]) 12/30/2021 Priority: Not Prioritized Seizures ([facility]) 08/13/2020 Priority: Not Prioritized Therapeutic procedure Priority: Not Prioritized Cerebrovascular accident ([facility]) 06/13/2019 Priority: Not Prioritized Insomnia 06/13/2019 Priority: [...] needed. Meka Barber, PharmD 11/30/2022 7:42 PM [facility] Vancomycin Guideline SUBJECTIVE/OBJECTIVE Mojgan Tabor is a [...] Given - Contrast 11/27/2022 Vancomycin Administrations from MAR (last 72 hours) Date/Time Action Medication Dose [...] well Labs: CBC Recent Labs Component Name 11/30/22 0320 11/29/22 0312 11/28/22 0434 WBC 8.9 12.9* 14.6* HGB 8.0* 9.1* 10.7* HCT 24.8* 27.3* 32.3* PLTCOUNT 205 202 244 BMP Recent Labs Component Name 11/30/22 0320 11/29/22 0312 11/28/22 0434 POTASSIUM 3.8 4.1 4.1 [...] > Dictated by Usman Arce MD, (residential recycle driver). Ashwin Thomason MD have personally reviewed and [...] > Dictated by Christian Yañez DO (residential recycle driver). I, Jason Sanchez MD have personally reviewed [...] 8:35 AM Patient: Mojgan Tabor (:1960) Room: [facility] Admit Date: 11/24/2022. Hospital Day: 5 Reason [...] 2.7* 3.4 Hepatic: Recent Labs Component Name 11/30/2231911/29/2231111/28/22 0434 11/26/22 0310 11/25/22 0335 11/04/22 0633 [...] ABGs: No results for input(s): PHART, PO2ART, ILD9SII, BEART in the last 41875 hours. Micro: sputum: pseudomonas. Nasal swab: MRSA [...] Sided Deficits #Dementia #Seizure Disorder - on [employer]AF[employer] atorvastatin 40mg, Depakote 500mg q6h, Clobazam 20mg BID, ??Lacosamide 200mg BID, Midazolam 5mg nasal spray PRN - holding [employer]AF[employer] ASA due to??recent??bleeding #Sedation -??propofol discontinued on [...] HTN at baseline; was not on any [employer]NA[employer] SAFETY meds - IV nicardipine and fluid bolus [...] ?? #PVD s/p L AKA - on [employer]AF[employer] atorvastatin 40mg - holding [employer]AF[employer] ASA due to bleeding ?? Pulmonary: #Acute [...] tracheostomy tube stable in position > continue [employer]AFET[employer] guaifenesin, levalbuterol > hold [employer] SAFET[employer] scopolamine patch until ENT recommends resuming > [...] soon as possible Renal: #BPH - on [employer]AF[employer] tamsulosin 0.4mg Endocrine: BGM goal 140-180 mg/dL [...] (POA: Yes) PEG (percutaneous endoscopic gastrostomy) status ([facility]) (POA: Yes) Tracheostomy in place ([facility]) (POA: Yes) Uncontrolled hypertension (POA: No) Patient Active Problem List Diagnosis Date Noted COVID-19 04/14/2021 Priority: High History of CVA (cerebrovascular accident) 12/11/2020 Priority: High Cognitive communication deficit 08/25/2020 Priority: High Dysphagia, oropharyngeal phase 08/25/2020 Priority: High Epilepsy, unspecified, not intractable, without status epilepticus ([facility]) 05/25/2019 Priority: High Hemiplegia and 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- dominant side ([facility]) 05/25/2019 Priority: High Alzheimer's disease with early onset ([facility]) 05/17/2019 Priority: High Paroxysmal tachycardia, unspecified ([facility]) 05/16/2019 Priority: High Alcohol abuse, uncomplicated 08/13/2015 Priority: High Benign neoplasm of prostate 06/26/2015 Priority: High Other specified rheumatoid arthritis, unspecified site ([facility]) 06/26/2015 Priority: High Uncontrolled hypertension 11/28/2022 Priority: Not Prioritized Uncontrolled. V-tach ([facility]) 11/27/2022 Priority: Not Prioritized Nasal polyp 11/25/2022 Priority: Not Prioritized Hemoptysis 11/25/2022 Priority: Not Prioritized Acute blood loss anemia 11/25/2022 Priority: Not Prioritized PEG (percutaneous endoscopic gastrostomy) status ([facility]) 11/25/2022 Priority: Not Prioritized Tracheostomy in place ([facility]) 11/25/2022 Priority: Not Prioritized Pressure ulcer of right heel, stage 3 ([facility]) 10/17/2022 Priority: Not Prioritized Dementia, vascular ([facility]) 10/17/2022 Priority: Not Prioritized Atelectasis, right 07/05/2022 Priority: Not Prioritized Contrast-induced nephropathy 07/05/2022 Priority: Not Prioritized 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 Priority: Not Prioritized Leukocytosis, unspecified type 06/28/2022 Priority: Not Prioritized Sinus tachycardia 06/28/2022 Priority: Not Prioritized Hypoxia 06/28/2022 Priority: Not Prioritized Acute respiratory failure with hypoxia ([facility]) 06/28/2022 Priority: Not Prioritized Aspiration pneumonitis ([facility]) 06/13/2022 Priority: Not Prioritized Aspiration into airway 06/12/2022 Priority: Not Prioritized Protein-calorie malnutrition, unspecified severity ([facility]) 06/03/2022 Priority: Not Prioritized Abdominal pain, generalized 05/30/2022 Priority: Not Prioritized Lethargy 05/30/2022 Priority: Not Prioritized History of stroke 05/30/2022 Priority: Not Prioritized Acute on chronic respiratory failure with hypoxia ([facility]) 05/30/2022 Priority: Not Prioritized Bacteremia 03/11/2022 Priority: Not Prioritized Ulcer of left foot ([facility]) 03/11/2022 Priority: Not Prioritized PAD (peripheral artery disease) ([facility]) 03/11/2022 Priority: Not Prioritized Severe protein-calorie malnutrition ([facility]) 03/11/2022 Priority: Not Prioritized Status epilepticus ([facility]) 12/30/2021 Priority: Not Prioritized Seizure disorder ([facility]) 12/30/2021 Priority: Not Prioritized Seizures ([facility]) 08/13/2020 Priority: Not Prioritized Therapeutic procedure Priority: Not Prioritized Cerebrovascular accident ([facility]) 06/13/2019 Priority: Not Prioritized Insomnia 06/13/2019 Priority: [...] 4:21 PM Patient: Mojgan Tabor (:1960) Room: [facility] Admit Date: 11/24/2022. Hospital Day: 4 Reason [...] 3.4 3.0 Hepatic: Recent Labs Component Name 11/29/2231111/28/22 0434 11/27/2231711/26/22 0310 11/25/22 0335 11/04/22 0633 10/09/22 [...] ABGs: No results for input(s): PHART, PO2ART, ICR1BBF, BEART in the last 53746 hours. Micro: cultures revealed pseudomonas aeruginosa Imaging: [...] Sided Deficits #Dementia #Seizure Disorder - on [employer]AFET[employer] atorvastatin 40mg, Depakote 500mg q6h, Clobazam 20mg BID, Lacosamide 200mg BID, Midazolam 5mg nasal spray PRN - holding [employer] SAF[employer] ASA due to recent bleeding #Sedation - [...] HTN at baseline; was not on any [employer]NA[employer] meds - IV nicardipine and fluid bolus [...] ?? #PVD s/p L AKA - on [employer]AF[employer] atorvastatin 40mg - holding [employer]AF[employer] ASA due to bleeding Pulmonary: #Acute on [...] tracheostomy tube stable in position > continue [employer] SAFETY guaifenesin, levalbuterol > hold [employer]NA[employer] SAF[employer] scopolamine patch until ENT recommends resuming > SpO2 goal of 90% GI: #Dysphagia s/p PEG placement #Severe Protein Calorie Malnutrition - tube feeds via PEG for nutrition at home > diet NPO for any additional surgical interventions, reinitiate diet as soon as possible Renal: #BPH - on [employer]AF[employer] tamsulosin 0.4mg Endocrine: BGM goal 140-180 mg/dL ID: #Concern for Ventilator-Associated Pneumonia - patient developed low-grade fever on 11/28/22 > initiated vancomycin + Zosyn for presumed ventilator-associated pneumonia and recent history of MRSA infection > sputum culture with gram stain Heme/Onc: #Tracheal Bleeding - /2 antrochoanal polyp - Hgb dropped 12.5->10.7, previously [...] High Other specified rheumatoid arthritis, unspecified site ([facility]) 06/26/2015 Priority: High Uncontrolled hypertension 11/28/2022 Priority: Not Prioritized Uncontrolled. V-tach ([facility]) 11/27/2022 Priority: Not Prioritized Nasal polyp 11/25/2022 Priority: Not Prioritized Hemoptysis 11/25/2022 Priority: Not Prioritized Acute blood loss anemia 11/25/2022 Priority: Not Prioritized PEG (percutaneous endoscopic gastrostomy) status ([facility]) 11/25/2022 Priority: Not Prioritized Tracheostomy in place ([facility]) 11/25/2022 Priority: Not Prioritized Pressure ulcer of right heel, stage 3 ([facility]) 10/17/2022 Priority: Not Prioritized Dementia, vascular ([facility]) 10/17/2022 Priority: Not Prioritized Atelectasis, right 07/05/2022 Priority: Not Prioritized Contrast-induced nephropathy 07/05/2022 Priority: Not Prioritized 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 Priority: Not Prioritized Leukocytosis, unspecified type 06/28/2022 Priority: Not Prioritized Sinus tachycardia 06/28/2022 Priority: Not Prioritized Hypoxia 06/28/2022 Priority: Not Prioritized Acute respiratory failure with hypoxia ([facility]) 06/28/2022 Priority: Not Prioritized Aspiration pneumonitis ([facility]) 06/13/2022 Priority: Not Prioritized Aspiration into airway 06/12/2022 Priority: Not Prioritized Protein-calorie malnutrition, unspecified severity ([facility]) 06/03/2022 Priority: Not Prioritized Abdominal pain, generalized 05/30/2022 Priority: Not Prioritized Lethargy 05/30/2022 Priority: Not Prioritized History of stroke 05/30/2022 Priority: Not Prioritized Acute on chronic respiratory failure with hypoxia ([facility]) 05/30/2022 Priority: Not Prioritized Bacteremia 03/11/2022 Priority: Not Prioritized Ulcer of left foot ([facility]) 03/11/2022 Priority: Not Prioritized PAD (peripheral artery disease) ([facility]) 03/11/2022 Priority: Not Prioritized Severe protein-calorie malnutrition ([facility]) 03/11/2022 Priority: Not Prioritized Status epilepticus ([facility]) 12/30/2021 Priority: Not Prioritized Seizure disorder ([facility]) 12/30/2021 Priority: Not Prioritized Seizures ([facility]) 08/13/2020 Priority: Not Prioritized Therapeutic procedure Priority: Not Prioritized Cerebrovascular accident ([facility]) 06/13/2019 Priority: Not Prioritized Insomnia 06/13/2019 Priority: [...] next level of care Post acute recommendation: Care Home Insurance authorization is not required for post acute care needs Payer/Plan Subscriber Name Rel Member # Group # MEDICAID - [place] -* MOJGAN TABOR [id number] [address] [address] Continued Care and Services - Admitted Since 11/24/2022 Destination Service Provider Request Status Selected Services Address Phone Fax Patient Preferred [facility] [place] [facility])Pending - Request Sent N/A [address] [facility] [phone] -- Current Capacity last updated by Yu Nguyễn on 04/21/2022 1237 118 See Nurse Case Management note(s) for medical updates and progress toward discharge/disposition plans Thank you, CLARITA Rico, PRACHI [facility] [phone] 11/29/2022 3:18 PM * Suresh Jaquez RN - 11/29/2022 2:30 PM CDT Care Coordination Progress Note Anticipated level of care at discharge: Care Home - Medicaid Discharge Plan: return to SNF [...] Emergency Contact: Adriane Hilliard Mobile Relation: Sister Director Of Sleep needed? No Secondary Emergency Contact: Amarjit Tabor [facility] Relation: Brother Transportation at Discharge: Ambulance Equipment at Home: Equipment at Home: Facility Equipment List DME patient requires but does not have: DME Provider: Medication affordability concerns: No Follow Up Appointment: Transportation to MD: Ambulance Auth Number (if required): [place]: DME: Medications: Transportation: Name: Suresh Jaquez RN Phone: [phone] * Ryanne Hraden MD - 11/29/2022 10:49 AM CDT ATTENDING [...] Activity ?Alcohol use: No ?Comment: last drink 2016 ?Drug use: No ?Comment: occasional ?Sexual activity: [...] ?? Lab Results: Recent Labs Component Name 11/29/2231111/28/2243311/27/22317 WBC 12.9* 14.6* 15.4* HGB 9.1* 10.7* 12.4 HCT 27.3* 32.3* 37.2 PLTCOUNT 202 244 260 Recent Labs Component Name 11/29/2231111/28/22433 11/27/22 0318 POTASSIUM 4.1 4.1 4.2 CO2 [...] input(s): CKMB, TROPONIN, MYOGLOBIN in the last 00161 hours. Recent Labs Component Name 11/27/22 0328 11/26/22 2041 11/26/22 1840 [id number] 25.5 26.1 25.3 FIO2 25.0 30.0 30.0 [...] Repeat ECHO pending. ?? ECG with old ID. 11/29/22 Left AKA. No new Sx. Stable [...] further details. ? Ryanne Harden MD, F.A.C.C. cord maker ?? 11/27/22 ??9:06 PM * Jose Enrique Johnson MD - 11/29/2022 8:47 AM CDT [facility] Inpatient Cardiology Consultation : 1960 Admission: 11/24/2022 [...] fluticasone propionate (Flonase) 50 MCG/ACT nasal spray [place] 1 (one) spray into each nostril once [...] daily midazolam (Nayzilam) 5 MG/0.1ML nasal spray [place] 0.1 mL into the nose as needed for Seizures midazolam (Nayzilam) 5 MG/0.1ML nasal spray [place] 0.1 mL into the nose as needed [...] -- 92 12 100 % -- -- 11/28/222029 119/69 -- -- 99 (!) 7 100 [...] CDT See my note. Ryanne Harden MD cord maker. [facility] Chair in Cardiology Pager [phone] * Akbar Jung MD - 11/29/2022 6:53 [...] (). Patient sent to ED from facility / tracheal and oral bleeding that began 11/24. [...] > Dictated by Usman Arce MD, (residential recycle driver). IAshwin MD have personally reviewed and interpreted [...] > Dictated by Christian Yañez DO (residential recycle driver). I, Jason Sanchez MD have personally reviewed [...] renal function and cultures as needed. Meka Barber PharmD 11/29/2022 12:03 AM [facility] Vancomycin Guideline SUBJECTIVE/OBJECTIVE Mojgan Tabor is a [...] 11.5 - - - * Josef Wick, RN - 11/28/2022 6:13 PM CDT Problem: Fall [...] Wyatt MD - 11/28/2022 1:25 PM CDT [facility] Inpatient Cardiology Consultation : 1960 Admission: 11/24/2022 [...] fluticasone propionate (Flonase) 50 MCG/ACT nasal spray [place] 1 (one) spray into each nostril once [...] daily midazolam (Nayzilam) 5 MG/0.1ML nasal spray [place] 0.1 mL into the nose as needed for Seizures midazolam (Nayzilam) 5 MG/0.1ML nasal spray [place] 0.1 mL into the nose as needed [...] 122/98 -- -- 108 12 99 % 11/27/22 2200 114/86 -- -- 108 12 99 % 11/27/22 2145 123/86 -- -- 109 12 99 % 11/27/22 2130 130/90 -- -- 109 12 99 % 11/27/22 2115 134/98 -- -- 107 12 99 % 11/27/22 2100 129/92 -- -- 107 12 99 % 11/27/225 (!) 132/100 -- -- 107 12 99 [...] CDT See my note. Ryanne Harden MD cord maker. [facility] Chair in Cardiology Pager [phone] * Ryanne Harden MD - 11/28/2022 10:20 [...] Results: Recent Labs Component Name 11/28/22 0434 11/27/22 [...] input(s): CKMB, TROPONIN, MYOGLOBIN in the last 72013 hours. Recent Labs Component Name 11/27/22 0328 11/26/22 2041 11/26/22 1840 [id number] 25.5 26.1 25.3 FIO2 25.0 30.0 30.0 [...] Repeat ECHO pending. ?? ECG with old ID. 11/28/22 Left AKA. No new Sx. Stable [...] further details. ? Ryanne Harden MD, F.A.C.C. cord maker ?? 11/27/22 ??9:06 PM * Araceli Argueta MD - 11/28/2022 9:30 AM CDT MICU Progress Note 11/28/2022 9:30 AM Patient: Mojgan Tabor (:1960) Room: [facility] Admit Date: 11/24/2022. Hospital Day: 3 CC: [...] 3.0 3.5 Hepatic: Recent Labs Component Name 11/28/2243311/27/2231711/26/22 03111/25/22 0335 11/04/22 0633 10/09/22 1204 ALT - - - 24 27 10 AST - - - 24 25 15 TBILI - - - 0.2 0.2 0.1* PROT - - - 6.9 7.7 6.9 ALB 2.4* 2.6* 2.6* 2.6* 2.9* 3.0* ALKPHOS - - - 85 124 83 Coagulation: Recent Labs Component Name 08/28/22222306/27/22221422 1309 PT 15.2* 12.8 13.5 INR 1.2 1.0 1.0 Cardiac Markers: Recent Labs Component Name 07/11/22 0040 07/01/22 1634 06/28/22 0141 06/27/22 2215 05/30/22 1750 03/08/22 1455 12/31/21 0412 CKTOTAL 49 42 - - - - 77 TROPONINI - - <0.010 <0.010 <0.010 - - - = values in this interval not displayed. ABGs: No results for input(s): PHART, PO2ART, FAB1XZR, BEART in the last 26671 hours. Imaging: Imaging reviewed. Assessment: Mr. Mojgan [...] Sided Deficits #Dementia #Seizure Disorder - on MANAGER SECURITY AND SAFETY atorvastatin 40mg, Depakote 500mg q6h, Clobazam 20mg BID, Lacosamide 200mg BID, Midazolam 5mg nasal spray PRN - holding MANAGER SECURITY AND SAFETY ASA due to recent bleeding #Sedation - [...] HTN at baseline; was not on any MANAGER SECURITY AND SAFETY meds - IV nicardipine and fluid bolus [...] 11/26 #PVD s/p L AKA - on MANAGER SECURITY AND SAFETY atorvastatin 40mg - holding MANAGER SECURITY [employer] SAFETY ASA due to bleeding Pulmonary: #Acute on [...] tracheostomy tube stable in position > continue MANAGER SECURITY AND SAFETY guaifenesin, levalbuterol > hold MANAGER SECURITY AND SAFETY scopolamine patch until ENT recommends resuming > SpO2 goal of 90% GI: #Dysphagia s/p PEG placement #Severe Protein Calorie Malnutrition - tube feeds via PEG for nutrition at home > diet NPO for any additional surgical interventions, reinitiate diet as soon as possible Renal: #BPH - on MANAGER SECURITY AND SAFETY tamsulosin 0.4mg Endocrine: BGM goal 140-180 mg/dL [...] in my notes. Stephen Witt MD * Akabr Jung MD - 11/28/2022 8:14 AM CDT [...] Dictated by Usman Arce MD, MD (residential recycle driver). IAshwin MD have personally reviewed and interpreted [...] > Dictated by Christian Yañez DO (residential recycle driver). I, Jason Sanchez MD have personally reviewed [...] Mins. Critical Care Attending: STEPHEN WITT M.D., [facility] * Gonzalo Herman RN - 11/27/2022 10:06 [...] Humidity Temp (C) 37 Celsius H2O Bag 1/4 Humidifier alarm on and functional Yes Tubing [...] Mins. Critical Care Attending: STEPHEN WITT M.D., [facility] * Araceli Argueta MD - 11/27/2022 9:06 AM CDT MICU Progress Note 11/27/2022 9:08 AM Patient: Mojgan Tabor (:1960) Room: [facility] Admit Date: 11/24/2022. Hospital Day: 2 CC: [...] 3.5 3.4 Hepatic: Recent Labs Component Name 11/27/22 03111/26/22 03111/25/22 0335 11/04/22 0633 10/09/22 1204 ALT [...] ABGs: No results for input(s): PHART, PO2ART, HAF9SRB, BEART in the last 24325 hours. Imaging: Imaging reviewed. Assessment: History of [...] Sided Deficits #Dementia #Seizure Disorder - on MANAGER SECURITY AND SAFETY atorvastatin 40mg, Depakote 500mg q6h, Clobazam 20mg BID, Lacosamide 200mg BID, Midazolam 5mg nasal spray PRN - holding MANAGER SECURITY [employer] SAFETY ASA due to bleeding #Sedation > discontinue [...] HTN at baseline; was not on any MANAGER SECURITY AND SAFETY meds - IV nicardipine and fluid bolus [...] fentanyl #PVD s/p L AKA - on MANAGER SECURITY AND SAFETY atorvastatin 40mg - holding MANAGER SECURITY AND SAFETY ASA due to bleeding Pulmonary: #Acute on [...] tracheostomy tube stable in position > continue MANAGER SECURITY AND SAFETY guaifenesin, levalbuterol > hold MANAGER SECURITY AND SAFETY scopolamine patch until ENT recommends resuming > SpO2 goal of 90% GI: #Dysphagia s/p PEG placement #Severe Protein Calorie Malnutrition - tube feeds via PEG for nutrition at home > diet NPO for any additional surgical interventions, reinitiate diet as soon as possible Renal: #BPH - on MANAGER SECURITY AND SAFETY tamsulosin 0.4mg Endocrine: BGM goal 140-180 mg/dL [...] well Labs: CBC Recent Labs Component Name 11/27/2231711/26/22 18411/26/22 0310 WBC 15.4* 17.4* 12.7* 12.7* HGB 12.4 12.5 12.5 12.5 HCT 37.2 37.2 37.9 37.9 PLTCOUNT 260 244 194 194 BMP Recent Labs Component Name 11/27/228 11/26/22 18411/26/22 0310 POTASSIUM 4.2 4.2 4.0 CO2 22 19* 26 BUN 8 10 11 CREATININE 0.45* 0.41* 0.46* GLUCOSE 115 120* 91 CALCIUM 9.7 9.8 10.0 PHOS 3.0 3.5 3.4 LFTs Recent Labs Component Name 11/25/22 0335 11/04/22 0633 10/09/22 1204 AST 24 25 15 ALT 24 27 10 ALKPHOS 85 124 83 Coags Recent Labs Component Name 08/28/22 2224 06/27/22 2215 05/11/22 1309 PT 15.2* 12.8 13.5 INR 1.2 1.0 1.0 ABG Recent Labs Component Name 11/27/228 11/26/22 2041 11/26/22 1840 02/25/21 1212 04/11/15 [...] Dictated by Usman Arce MD, MD (residential recycle driver). IAshwin MD have personally reviewed and interpreted [...] > Dictated by Christian Yañez DO (residential recycle driver). I, Jason Sanchez MD have personally reviewed [...] admission, onward) None Assessment and Plan Mojgan Kandi MercedesSharona is a 62 year old male with [...] Caicedo SLP - 11/26/2022 1:30 PM CDT [facility] Department of Physical Medicine & Rehabilitation Progress Note Patient: Mojgan Tabor [facility] Record Number: [id number] Date of : 1960 Age: [age] year old 11/26/22 1300 Therapy on Hold Therapy on Hold Surgery Elmo Ansari M.A., CCC-[employer] INFRASTRU[employer]URE CONSULTANT Speech Language Pathologist [phone] * Clover Crowley RN - 11/26/2022 10:22 AM CDT Case Management Initial Assessment Case Management screen completed & Welcome Letter given. Anticipated level of care at discharge: Care Home - Medicaid Discharge Plans: To be determined based on patient needs and recommendations from the multidisciplinary team. Prior Level of Functioning: Patient came from [facility]. He receives assistance with ADLs from the facility staff. Lives with: Other (Comment) (from [place]) Basic Needs Assessment (BNA) Score: n/a Readmission: [...] patient's preference is to stay within the [facility] and its affiliates.: Yes Verify Family Support (name and phone): Extended Emergency Contact Information Primary Emergency Contact: Adriane Hilliard Mobile Relation: Sister Director Of Sleep needed? 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 For any questions or needs please contact: Immigration Manager Name/Phone number: Clover Crowley RN Case Manager [phone] * Melany Macias MD - 11/26/2022 9:30 [...] INR 1.2 1.0 1.0 Microbiology: Reviewed in [facility] Imaging: Reviewed in [facility] Assessment and Plan: #Acute on Chronic [...] afternoon #Disposition - Comes from [facility] in [place] - Per chart review, family has been [...] Dictated by Usman Arce MD, MD (residential recycle driver). Ashwin Thomason MD have personally reviewed and [...] > Dictated by Christian Yañez DO (residential recycle driver). Jason Thomason MD have personally reviewed and interpreted [...] the flowsheet documentation) Outcome: Progressing * Koby Smith, PharmD - 11/25/2022 9:28 AM CDT ACTIVE [...] function and cultures as needed. Koby Smith, PharmD 11/25/2022 9:22 AM [facility] Vancomycin Guideline SUBJECTIVE/OBJECTIVE Mojgan Tbaor is a 62 year old male. The primary encounter diagnosis was Pneumonia of right lung dueto infectious organism, unspecified part of lung. Diagnoses of Hemoptysis, Nasal polyp, and Tracheostomy in place ([facility]) were also pertinent to this visit. Height: [...] Given - Contrast 11/25/2022 Vancomycin Administrations from [facility] (last 72 hours) Date/Time Action [...] service. However, due to being at patient cap, medicine will take overcare at 7:30am. * Myrna Choudhary RCP - 11/25/2022 5:00 AM CDT Assisted with bedside bronchoscopy. [place] protocol checklist completed prior to procedure with attending physician present. FiO2 increased to 100%. SpO2 alarm set to audible. Scope lubricated, all lung segments/airways inspected. Specimens obtained via bal. Patient tolerated procedure adequately. Specimens prepared and sent to Lab by nursing. Disposable regular bronchoscope and rhinoscope used. documented in this encounter H&P Notes * Marcella Flores, DO - 12/10/2022 12:02 PM CDT PRE-PROCEDURE [...] Epilepsy, unspecified, not intractable, without status epilepticus ([facility]) 05/25/2019 Priority: High ??? Hemiplegia and 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-dominant side ([facility]) 05/25/2019 Priority: High ??? Alzheimer's disease with early onset ([facility]) 05/17/2019 Priority: High ??? Paroxysmal tachycardia, unspecified ([facility]) 05/16/2019 Priority: High ??? Alcohol abuse, uncomplicated 08/13/2015 Priority: High ??? Benign neoplasm of prostate 06/26/2015 Priority: High ??? Other specified rheumatoid arthritis, unspecified site ([facility]) 06/26/2015 Priority: High ??? Uncontrolled hypertension 11/28/2022 Priority: Not Prioritized Uncontrolled. ??? V-tach ([facility]) 11/27/2022 Priority: Not Prioritized ??? Nasal polyp 11/25/2022 Priority: Not Prioritized ??? Hemoptysis 11/25/2022 Priority: Not Prioritized ??? Acute blood loss anemia 11/25/2022 Priority: Not Prioritized ??? PEG (percutaneous endoscopic gastrostomy) status ([facility]) 11/25/2022 Priority: Not Prioritized ??? Tracheostomy in place ([facility]) 11/25/2022 Priority: Not Prioritized ??? Pressure ulcer of right heel, stage 3 ([facility]) 10/17/2022 Priority: Not Prioritized ??? Dementia, vascular ([facility]) 10/17/2022 Priority: Not Prioritized ??? Atelectasis, right 07/05/2022 Priority: Not Prioritized ??? Contrast-induced nephropathy 07/05/2022 Priority: Not Prioritized ??? 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 Priority: Not Prioritized ??? Leukocytosis, unspecified type 06/28/2022 Priority: Not Prioritized ??? Sinus tachycardia 06/28/2022 Priority: Not Prioritized ??? Hypoxia 06/28/2022 Priority: Not Prioritized ??? Acute respiratory failure with hypoxia ([facility]) 06/28/2022 Priority: Not Prioritized ??? Aspiration pneumonitis ([facility]) 06/13/2022 Priority: Not Prioritized ??? Aspiration into airway 06/12/2022 Priority: Not Prioritized ??? Protein-calorie malnutrition, unspecified severity ([facility]) 06/03/2022 Priority: Not Prioritized ??? Abdominal pain, generalized 05/30/2022 Priority: Not Prioritized ??? Lethargy 05/30/2022 Priority: Not Prioritized ??? History of stroke 05/30/2022 Priority: Not Prioritized ??? Acute on chronic respiratory failure with hypoxia ([facility]) 05/30/2022 Priority: Not Prioritized ??? Bacteremia 03/11/2022 Priority: Not Prioritized ??? Ulcer of left foot ([facility]) 03/11/2022 Priority: Not Prioritized ??? PAD (peripheral artery disease) ([facility]) 03/11/2022 Priority: Not Prioritized ??? Severe protein-calorie malnutrition ([facility]) 03/11/2022 Priority: Not Prioritized ??? Status epilepticus ([facility]) 12/30/2021 Priority: Not Prioritized ??? Seizure disorder ([facility]) 12/30/2021 Priority: Not Prioritized ??? Seizures ([facility]) 08/13/2020 Priority: Not Prioritized ??? Therapeutic procedure Priority: Not Prioritized ??? Cerebrovascular accident ([facility]) 06/13/2019 Priority: Not Prioritized ??? Insomnia 06/13/2019 [...] (CMS/HCC) ??? HTN (hypertension) ??? Seizure (CMS/HCC) No family history on file. Past Surgical [...] No Stress: No Stress Concern Present (11/28/2022) [employer] - Occupational Stress Questionnaire [...] fluticasone propionate (Flonase) 50 MCG/ACT nasal spray [place] 1 (one) spray into each nostril once [...] ??? midazolam (Nayzilam) 5 MG/0.1ML nasal spray [place] 0.1 mL into the nose as needed for Seizures 1Each 5 ??? midazolam (Nayzilam) 5 MG/0.1ML nasal spray [place] 0.1 mL into the nose as needed [...] congestion and suctioned blood prompting transfer to [facility]. Initially requiring HFNC to maintain saturations. CT [...] case patient converted to V tach on monitoring coordinator so case was aborted. Per ENT notes [...] assess Labs: CBC: Recent Labs Component Name 11/26/2230911/24/22 2347 11/04/22 0633 WBC 12.7* 12.7* 10.5 7.4 HGB 12.5 12.5 11.5* 14.2 HCT 37.9 37.9 35.9 44.4 BMP: Recent Labs Component Name 11/26/2230911/25/22 0335 11/04/22 0633 11/01/22 0644 NA 140 138 136 139 CL 108* 108* 106 106 CO2 26 26 24 27 BUN 11 16 14 14 CREATININE 0.46* 0.45* 0.47* 0.51* CALCIUM 10.0 9.5 9.7 9.6 PHOS 3.4 - 3.0 3.2 Hepatic: Recent Labs Component Name 11/26/2230911/25/22 0335 11/04/22 0633 10/09/22 1204 ALT - 24 27 10 AST - 24 25 15 TBILI - 0.2 0.2 0.1* PROT - 6.9 7.7 6.9 ALB 2.6* 2.6* 2.9* 3.0* ALKPHOS - 85 124 83 Coagulation: Recent Labs Component Name 08/28/22222306/27/22 2215 [...] ABGs: No results for input(s): PHART, PO2ART, GBD7GLH, BEART in the last 67775 hours. Micro: Pending Imaging: Imaging reviewed. Assessment: [...] planned for polyp removal, however, procedure aborted 07/01 v tach run -Intubated, levalbuterol q4hr -CXR pending -Procal pending -Cont Home guaifenesin -Suctioning & levalbuterol q4hr -Hold scopolamine until ENT recommends resuming SpO2 goal - 90 GI: #Dysphagia s/p PEG Placement #Severe Protein Calorie Malnutrition - Dependent on PEG for medical nutrition PLAN: - holding TF in event patient needs additional surgical intervention 2/ bleeding Renal: No SAMANTHA, no electrolyte abnormalities [...] had a run of V-tach on the monitoring coordinator therefore this procedure was aborted. Patient did [...] No Stress: No Stress Concern Present (08/29/2022) [employer] - Occupational Stress Questionnaire [...] fluticasone propionate (Flonase) 50 MCG/ACT nasal spray [place] 1 (one) spray into each nostril once [...] tablet0 midazolam (Nayzilam) 5 MG/0.1ML nasal spray [place] 0.1 mL into the nose as needed for Seizures 1 Each 5 midazolam (Nayzilam) 5 MG/0.1ML nasal spray [place] 0.1 mL into the nose as needed [...] Data: Laboratory Results: Recent Labs Component Name 11/26/22183911/26/2230911/24/22 2347 WBC 17.4* 12.7* 12.7* 10.5 HGB 12.5 12.5 12.5 11.5* HCT 37.2 37.9 37.9 35.9 PLTCOUNT 244 194 194 225 Recent Labs Component Name 08/28/22222306/27/22221405/11/22 1309 PT 15.2* 12.8 13.5 Recent Labs Component Name 08/28/22222306/27/22221405/11/22 1309 INR 1.2 1.0 1.0 Recent Labs Component Name 11/26/22183911/26/220 11/25/22 0335 11/04/22 0633 POTASSIUM 4.2 4.0 4.5 4.0 CO2 19* 26 26 24 BUN 10 11 16 14 CREATININE 0.41* 0.46* 0.45* 0.47* GLUCOSE 120* 91 91 98 CALCIUM 9.8 10.0 9.5 9.7 PHOS 3.5 3.4 - 3.0 Recent Labs Component Name 11/26/22183930/23 0310 11/25/22 0335 MAGNESIUM 2.1 1.6 1.7 [...] Name 11/26/22 2041 11/26/22 1840 10/09/22 1204 HMO7CXC 26.1 25.3 26.6 FIO2 30.0 30.0 35.0 [...] for determining treatment decisions. Elmo Ozuna MD Law Enforcement Instructor of Emergency Medicine Division of Pulmonary, Critical Care and Sleep Medicine [facility] * Ward Wyatt MD - 11/26/2022 3:31 [...] ED from facility 2/2 tracheal and oral bleeding. Also patient found to have R bronchial occulusion on CXR s/p bronch at bedside with suctioning/lavage. ?? He was undergoing surgery for removal of right nasal cavity today. After first polyp removal patient apparently went to [facility], rate in 280s, no strips, not known [...] medical history of CVA (cerebral vascular accident) (CMS/HCC), HTN (hypertension), and Seizure (CMS/HCC). PAST SURGICAL HISTORY: His has a past [...] fluticasone propionate (Flonase) 50 MCG/ACT nasal spray [place] 1 (one) spray into each nostril once [...] ??? midazolam (Nayzilam) 5 MG/0.1ML nasal spray [place] 0.1 mL into the nose as needed for Seizures 1Each 5 ??? midazolam (Nayzilam) 5 MG/0.1ML nasal spray [place] 0.1 mL into the nose as needed [...] REVIEWED: LABS: CBC: Recent Labs Component Name 11/26/22 0310 11/24/22 2347 11/04/22 0633 WBC 12.7* 12.7* 10.5 7.4 HGB 12.5 12.5 11.5* 14.2 HCT 37.9 37.9 35.9 44.4 MCV 92.7 92.7 95.7 95.9 Coagulation Panel: Recent Labs Component Name 08/28/22 2224 06/27/22 2215 05/11/22 1309 PT 15.2* 12.8 13.5 INR 1.2 1.0 1.0 BMP: Recent Labs Component Name 11/26/22 03111/25/22 0335 11/04/22 0633 NA 140 138 136 CL 108* 108* 106 CO2 26 26 24 BUN 11 16 14 CREATININE 0.46* 0.45* 0.47* CALCIUM 10.0 9.5 9.7 No results for input(s): MG in the last 86139 hours. Recent Labs Component Name 11/26/22 0310 11/04/22 0633 11/01/22 0644 PHOS 3.4 3.0 3.2 Hepatic Panel: Recent Labs Component Name 11/26/22 03111/25/22 0335 11/04/22 0633 10/09/22 1204 08/28/22 1251 06/30/22 1039 03/03/18 1745 01/30/18 1255 11/28/17 0455 10/14/17 1349 AST - 24 25 - - - 18 ALT - 24 27 10 - 5 [...] 102* HDL 81 ASSESSMENT & PLAN: // Dipak-operative V tach (no strips, never lost pulse, no need for shock, no chest compression, spontaneously came back to sinus tachycardia) // CVA s/p trach and PEG //Epilepsy //RLE amputation -Please obtain TTE -Please strictly monitor on telemetry -Please ensure K at 4, Mg at 2 and Ca at 8 Recommendations are not final unless attested by Attending Bail Attacher. Thank you for your consultation and please do not hesitate to contact us with any question or concern. Ward Wyatt MD PGY-4 Painter And Paperhanger Apprentice Associated attestation - Ryanne Harden MD - [...] reviewed Lab Results: Recent Labs Component Name 11/27/22 0318 11/26/22 1840 11/26/22 0310 WBC 15.4* 17.4* 12.7* 12.7* HGB 12.4 12.5 12.5 12.5 HCT 37.2 37.2 37.9 37.9 PLTCOUNT 260 244 194 194 Recent Labs Component Name 11/27/22 0318 11/26/22 1840 11/26/22 0310 POTASSIUM 4.2 4.2 [...] input(s): CKMB, TROPONIN, MYOGLOBIN in the last 09125 hours. Recent Labs Component Name 11/27/22 0328 11/26/22 2041 11/26/22 1840 EGA2PIL 25.5 26.1 25.3 FIO2 25.0 30.0 30.0 [...] function., Repeat ECHO pending. ECG with old ID. Follow status, weight, vitals and edema, Titrate meds prn. Keep K > 4, Mg > 2, SaO2 > 92% and Hgb > 9. Please see the resident's note for further details. Ryanne Harden MD, F.A.C.C. cord maker 11/27/2022 9:06 PM * Melany Macias MD - 11/25/2022 3:25 PM CDT [facility] General Internal Medicine History & Physical 11/25/2022 [...] and HTN who presents to [facility] from [facility]) for acute on chronic hypoxic respiratory failure [...] for Hgb 11.5 (14.2 at DC on 11/04), no leukocytosis or abnormal differential. CT chest [...] No Stress: No Stress Concern Present (08/29/2022) [employer] - Occupational Stress Questionnaire [...] 5 MG/0.1ML nasal spray Generic drug: midazolam [place] 0.1 mL into the nose as needed [...] mentation. Data Review Recent Labs Component Name 11/24/22 2347 11/04/22 0633 11/01/22 0644 03/09/22 0135 [...] this interval not displayed. Microbiology: Reviewed in [facility] Imaging: Reviewed in [facility] Assessment and Plan: #Acute on Chronic [...] documented in this encounter Procedure Notes * Marcella Flores DO - 12/10/2022 1:11 PM CDTAssociated Order(s): GASTROSTOMY [...] Hepatology Fellow Division of Gastroenterology and Hepatology [facility] documented in this encounter Consult Notes * [...] airway Aspiration pneumonitis (CMS/HCC) Leukocytosis, unspecified type Sinus tachycardia Hypoxia Acute respiratory failure with hypoxia (CMS/HCC) Atelectasis, right Contrast-induced nephropathy Zenker diverticulum Pressure ulcer of right heel, stage 3 (CMS/HCC) Dementia, vascular (CMS/HCC) Nasal polyp Hemoptysis Acute blood loss anemia PEG (percutaneous endoscopic gastrostomy) status (CMS/HCC) Tracheostomy in place (CMS/HCC) V-tach (CMS/HCC) Uncontrolled hypertension Past Medical History: Diagnosis Date [...] fluticasone propionate (Flonase) 50 MCG/ACT nasal spray [place] 1 (one) spray into each nostril once [...] ??? midazolam (Nayzilam) 5 MG/0.1ML nasal spray [place] 0.1 mL into the nose as needed for Seizures 1Each 5 ??? midazolam (Nayzilam) 5 MG/0.1ML nasal spray [place] 0.1 mL into the nose as needed [...] ??? Alcohol use: No Comment: last drink 2016 Family History: family history is not on file. Review of Systems: Not able to obtain 2/2 mental status Objective: Physical Exam: BP 142/96 Pulse 73 Temp 97.8 ??F (36.6 ??C) (Oral) Resp 18 Ht 1.778 m (5' 10 ) Wt 70.8 kg(156 lb) SpO2 99% Wt Readings from Last [...] not oriented Labs: Recent Labs Component Name 12/10/2234312/09/22 1211 12/09/22 0552 12/08/22 0428 12/07/22 0228 [...] interval not displayed. Recent Labs Component Name 12/10/2234312/09/2255112/08/22427 NA 139 138 137 CL 104 106 104 CO2 28 27 26 BUN 15 13 16 CREATININE 0.50* 0.47* 0.49* Recent Labs Component Name 12/10/2234312/09/2252 12/08/22 0428 11/26/22 0310 11/25/22 0335 11/04/22 [...] institution protocol.> Dictated by Concha Turner MD (Primer Press Operator) 12/07/2022 2:16 PM ISarah DO have personally [...] 12/11/2022 2:17 PM CDT Bebe Rowe MD Law Enforcement Instructordividend clerk at [facility] Sulfate Drier Machine Operator and Advanced Endoscopist Division of Gastroenterology & [...] mood Laboratory findings: Recent Labs Component Name 12/08/22 0428 12/07/22 0228 12/06/22 0310 03/09/22 0135 03/08/22 1455 WBC 8.7 10.4 7.3 - 20.8* HGB 11.8* 11.2* 11.1* - 14.3 HCT 36.7 34.5* 34.7* - 42.9 PLTCOUNT 343 426* 435* - 211 PLATELET - - - - Occasional* - = values in this interval not displayed. Recent Labs Component Name 08/28/22 2224 06/27/22 2215 05/11/22 1309 INR 1.2 1.0 1.0 Recent Labs Component Name 12/08/22 0428 12/07/228 12/06/22 0310 NA 137 137 139 GLUCOSE 105 95 117* CREATININE 0.49* 0.47* 0.38* EGFR >90 >90 >90 Recent Labs Component Name 12/08/22 0428 12/07/228 12/06/22 0310 11/26/22 0310 11/25/22 0335 11/04/22 [...] institution protocol.> Dictated by Concha Turner MD (Primer Press Operator) 12/07/2022 2:16 PM ISarah DO have personally [...] include: malposition. All VIR physicians including: Luh Lisa Sherwani, Malik, Vaheesan, Andriy, Shun, Ashley, Stanley, Jyothi and iFto, are qualified to perform procedure. 1. Written [...] or concerns. Gaurav Avila PA-C Interventional Radiology [phone] * David Dale MD - 12/03/2022 8:09 AM CDTAssociated Order(s): IP CONSULT TO INFECTIOUS DISEASES [facility] Infectious Diseases Consultation Patient Name: Mojgan Tabor 1960 Room: [facility] Date of Admission: 11/24/2022 Date of Service: 12/03/2022 Primary Care Physician: Joyce Luevano APRN-FOOD CHEMIST Attending Physician: Ilir Mckenzie MD Reason for [...] hypoxic re spiratory failure. Patient presented to [facility] on 11/24/2022 BIBEMS due to bleeding from [...] No Stress: No Stress Concern Present (11/28/2022) [employer] - Occupational Stress Questionnaire [...] tablet by Enteral Tube route once daily Filemon Hernandez MD atorvastatin (Lipitor) 40 MG tablet 1 (one) tablet by Enteral Tube route once daily 04/01/22 Dante Nuno MD cetirizine (ZyrTEC) 10 MG tablet 1 (one) tablet by Enteral Tube route once daily Filemon Hernandez MD cloBAZam (Onfi) 20 MG tablet 1 (one) tablet by Enteral Tube route 2 times daily 11/11/22 Yana Rm APRN-CNP cloBAZam (Onfi) 20 MG tablet 1 (one) tablet by Enteral Tube route 2 times daily 11/11/22 Yana Rm APRN-CNP divalproex sprinkle (Depakote [...] fluticasone propionate (Flonase) 50 MCG/ACT nasal spray [place] 1 (one) spray into each nostril once [...] APRN-CNP midazolam (Nayzilam) 5 MG/0.1ML nasal spray [place] 0.1 mL into the nose as needed for Seizures 11/11/22 Yana Rm APRN-CNP midazolam (Nayzilam) 5 MG/0.1ML nasal spray [place] 0.1 mL into the nose as needed [...] is via enteral tube. 06/15/22 Kiko Barros, DO thiamine (Vitamin B-1) 100 MG tablet 1 [...] Lab Review CBC: Recent Labs Component Name 12/03/22 02212/02/22 0356 12/01/22 0338 WBC 9.4 13.6* 10.9* [...] aspiration pneumonia Possible tracheitis/tracheobronchitis Concern for VAP terminal [facility] facility resident coming initially with bleeding [...] David Dale MD (PGY-4) Infectious Diseases Fellow [facility] Pager: [phone] ID Clinic Associated attestation - Natali Drake [...] care. Patient's family was told by his insecticide mixer that J tube may be better for [...] place without evidence of skin infection MSK: HAWKP, no c/c/e Neuro: Moving all extremities, no [...] Royce Morrison MD, PGY-5 General Surgery Resident [facility] Associated attestation - Juan Diego Crane MD [...] Crane MD Trauma/acute care surgery * Nuria Guajardo RD/ONI - 11/29/2022 8:43 AM CDTAssociated Order(s): IP [...] and HTN who presents [facility] from [facility]) for acute on chronic hypoxic respiratory failure [...] incision on nose Estimated Energy Needs: KCAL: [id number] (20-25kcal/kg ABW) Protein (g): 84-139 (1.2-2.0g/kg ABW) [...] Sherman MD - 11/27/2022 2:54 PM CDT [facility] Inpatient Cardiology Consultation : 1960 Admission: 11/24/2022 [...] fluticasone propionate (Flonase) 50 MCG/ACT nasal spray [place] 1 (one) spray into each nostril once [...] daily midazolam (Nayzilam) 5 MG/0.1ML nasal spray [place] 0.1 mL into the nose as needed for Seizures midazolam (Nayzilam) 5 MG/0.1ML nasal spray [place] 0.1 mL into the nose as needed [...] ??C) Axillary -- -- -- -- 11/27/22 07 (!) 172/133 -- -- (!) 131 12 [...] Results: Recent Labs Component Name 11/27/2231711/26/22 18411/26/22 031 WBC 15.4* 17.4* 12.7* 12.7* HGB 12.4 12.5 12.5 12.5 HCT 37.2 37.2 37.9 37.9 PLTCOUNT 260 244 194 194 Recent Labs Component Name 11/27/22 0318 11/26/22 1840 11/26/22 0310 POTASSIUM 4.2 4.2 [...] input(s): CKMB, TROPONIN, MYOGLOBIN in the last 64650 hours. Recent Labs Component Name 11/27/22 0328 11/26/22 2041 11/26/22 1840 PCU4NIO 25.5 26.1 25.3 FIO2 25.0 30.0 30.0 [...] function., Repeat ECHO pending. ECG with old ID. 11/27/22 No new Sx. Stable and repeat ECHO pending. Follow status, weight, vitals and edema, Titrate meds prn. Keep K > 4, Mg > 2, SaO2 > 92% and Hgb > 9. Please see the resident's note for further details. Ryanne Harden MD, F.A.C.C. cord maker 11/27/22 9:06 PM * Lowell Avilez, RD/LD - 11/27/2022 9:07 AM CDTAssociated Order(s): IP [...] and HTN who presents to [facility] from [facility]) for acute on chronic hypoxic respiratory failure [...] incision on nose Estimated Energy Needs: KCAL: 6719-5148 (20-25kcal/kg ABW) Protein (g): 84-139 (1.2-2.0g/kg ABW) [...] Progress: Continue with current goal Ascom #: [id number] * Elmo Sidhu - 11/26/2022 12:28 PM [...] and HTN who presents to [facility] from [facility]) for acute on chronic hypoxic respiratory failure [...] Pain affecting intake: No Estimated Needs: KCAL: [id number] (35-45 kcal/kg) Protein (g): 96-124 (20% estimated [...] Goal Progress: New goal established Elmo Sidhu, Auditing Coder * Iggy Rodriguez - 11/26/2022 12:18 PM CDTAssociated Order(s): IP CONSULT TO DIRECTOR OF INTERCOLLEGIATE ATHLETICS Facility Admission Note Admitted From: [facility] Level of Care: [facility]/Jail Care Primary Payor at Facility: Medicaid Can patient Return: Yes Facility Contact: admissions Physician Following at Facility: Does Patient/Family want them to Return?: Yes Family/Support Name/Contact: / [phone] Number of Skilled Days Used (if applicable): n/a Prior Level of Functioning: Dependent on facility staff Disposition/Anticipated Level of Care at Discharge: return to LTC Anticipated mode of transport: ALS Special Testing Requirements: COVID test Comments: send updates to [facility] and will follow. Pt is currently requiring hi flow O2 which will need weaned down to baseline prior to d/c CLARITA Turcios / [id number] * Aaron Elder MD - 11/25/2022 5:10 AM CDTAssociated Order(s): IP CONSULT TO OTOLARYNGOLOGY [facility] Otolaryngology Consult Note 11/25/2022 REASON FOR CONSULT: tracheal bleeding CONSULTING TEAM: ED HPI Mojgan Tabor is a 62 year old yo male w/ hx of R. Occipital stroke (2015), head [...] None LABS CBC Recent Labs Component Name 11/24/22 2347 11/04/22 0633 11/01/22 0644 WBC 10.5 7.4 6.8 HGB 11.5* 14.2 13.5 HCT 35.9 44.4 42.3 PLTCOUNT 225 169 185 BMP Recent Labs Component Name 11/25/22 0335 11/04/22 0633 11/01/22 0644 NA 138 136 [...] Interventional Radiology Brief Post-Procedure Note Patient: Mojgan Chau Sharona Attending: Krystal Stock MD Marketing Sales Manager: None Diagnosis/Indication: Dysphagia Procedure: Image guided G [...] Rodrigo Lobo MD - Resident - Assisting Marketing Sales Manager(s): none Anesthesia Type: general Complications: v-tach on [...] Flush Type Water 11/26/22 0900 Site Assessment WDL 11/26/22 1018 Dressing Type Gauze 11/26/22 1018 [...] with his sister who is his powerof elevator troubleshooter and she was agreement to proceeding. DESCRIPTION [...] Ledesma at [phone] for pt transfer to S room 843. * Davion Nicholas RN - 11/25/2022 8:17 [...] 3. Nasal polyp 4. Tracheostomy in place ([facility]) Disposition: Admit to Internal Medicine By signing [...] a PMHx of stroke, was discharged from [facility] on 11/09/2022. She is presenting to the ED BIBEMS from [facility] in [place] for concerns of tracheostomy bleeding. EMS states [...] No Stress: No Stress Concern Present (08/29/2022) [employer] - Occupational Stress Questionnaire [...] interpreted by me.) - MONITORING: The patient's Ornamental Ironworking Supervisor Rhythm was interpreted by me. The school lunch monitor showed 113. The patient's Oxygen Saturation Monitor was interpreted by me. The reading was 96%. The patient wason RA at the time of the reading. This is interpreted as normal. - ECG: Interpreted by me: Date: 11/25/2022 Time: 2343 R&R: Sinus tachycardia with a ventricular rate [...] (1,500 mg Intravenous $ New Bag/Syringe 11/25/22 2051) tranexamic acid (Cyklokapron) 1,000 mg in 0.9% NaCl IV 110 mL infusion (1,000 mg Intravenous $ New Bag/Syringe 11/25/22 3154) iopamidol (Isovue 370) 76 % contrast (100 [...] 3. Nasal polyp 4. Tracheostomy in place ([facility]) Disposition: Admit to Medicine By signing my [...] RN - 11/24/2022 11:31 PM CDT Bed: [facility] Expected date: Expected time: Means of arrival: Comments: [place] 1342 ETA 20 min 62M bleeding from trach, suctioning blood, no distress, 96% on blow by. documented in this encounter Miscellaneous Notes * Coding Query - Feliciano Madrid MD - 12/15/2022 2:43 PM CDT DOCUMENTATION CLARIFICATION REQUEST Use the F2 function alanis to complete the query. Click on ???Sign?? to file the note. TO: Dr. Madrid FROM: Agnieszka Palumbo RN CCDS, Email: [email or web address] Patient Name: Mojgan Tabro Please clarify the present on admission status [...] patient converted to ventricular tachycardia on the monitoring coordinator. Case was aborted. Code blue was called. [...] 1:31 PM * Coding Query - Neville Hweitt III, MD - 11/26/2022 1:05 PM CDT DOCUMENTATION CLARIFICATION REQUEST Use the F2 function alanis to complete the query. Click ???Sign?? to file the note. TO: Dr. Hewitt FROM: Agnieszka Palumbo RN CCDS, Email: [email or web address] Patient Name: Mojgan Tabor Please review the [...] Description 12/05/2024 1:00 PM CDT Office Visit [facility] - Neurology [address] [facility] [id number] Sean Raymundo, [address] [place] [address] Scheduled Orders Name Type Priority Associated Diagnoses [...] POINT OF CARE (12/16/2022 2:08 PM CDT) Glucose WB/POC 125(H) 70 - 115 mg/dL 12/16/2022 2:12 PM CDT [facility] Specimen Type Cap Fingerstick 2022 2:12 PM CDT [facility] Blood BLOOD SPECIMEN / Unknown 12/16/2022 2:08 PM CDT 12/16/2022 2:12 PM CDT Feliciano Madrid MD LAB - POINT OF CARE ORDERABLES [address] [address], [place] [phone] * GLUCOSE - POINT OF CARE (12/16/2022 5:49 AM CDT) Glucose WB/POC 108 70 - 115 mg/dL 12/16/2022 5:56 AM CDT [facility] Specimen Type Cap Fingerstick 2022 5:56 AM CDT [facility] Blood BLOOD SPECIMEN / Unknown 12/16/2022 5:49 AM CDT 12/16/2022 5:56 AM CDT Feliciano Madrid MD LAB - POINT OF CARE ORDERABLES [address] [address], [place] [phone] * (ABNORMAL) RBC MORPHOLOGY (12/16/2022 3:49 AM CDT) [facility] Platelet Estimate Decreased(A) Adequate 12/16/2022 5:20 AM CDT [facility] Anisocytosis Occasional(A ) None 12/16/2022 5:20 AM CDT [facility] Ovalocytes Occasional(A ) None 12/16/2022 5:20 AM CDT [facility] [place] Cells 2+(A) None 12/16/2022 5:20 AM CDT [facility] Comment Platelet Platelet clumpled on the smear but appear decreased. 12/16/2022 5:20 AM CDT [facility] Blood BLOOD SPECIMEN / Unknown Lab Venipuncture / Unknown 12/16/2022 3:49 AM CDT 12/16/2022 4:04 AM CDT Neville Hewitt III, MD LAB - HEMATOLOGY ORDERABLES [address] [address], [facility] [phone] * MAGNESIUM BLOOD (12/16/2022 3:49 AM CDT) [facility] Magnesium 1.8 1.6 - 2.6 mg/dL 12/16/2022 4:29 AM CDT [facility] Blood BLOOD SPECIMEN / Unknown Lab Venipuncture / Unknown 12/16/2022 3:49 AM CDT 12/16/2022 4:14 AM CDT Neville Hewitt III, MD LAB - CHEMISTRY ORDERABLES [address] [address], [facility] [phone] * (ABNORMAL) RENAL FUNCTION PANEL (12/16/2022 3:49 AM CDT) [facility] BUN 12 7 - 26 mg/dL 12/16/2022 4:29 AM CDT [facility] Creatinine 0.52(L) 0.71 - 1.16 mg/dL 12/16/2022 4:29 AM [facility] Sodium 133(L) 136 - 145 mmol/L 12/16/2022 4:29 AM [facility] Potassium 4.7(H) 3.5 - 4.5 mmol/L 12/16/2022 4:29 AM [facility] Chloride 105 98 - 107 mmol/L 12/16/2022 4:29 AM [facility] CO2 21(L) 22 - 29 mmol/L 12/16/2022 4:29 AM [facility] Glucose 120(H) 70 - 115 mg/dL 12/16/2022 4:29 AM [facility] Albumin 2.3(L) 3.4 - 5.0 g/dL 12/16/2022 4:29 AM [facility] Calcium 9.3 8.4 - 10.2 mg/dL 12/16/2022 4:29 AM [facility] Phosphorus 2.1(L) 2.8 - 5.1 mg/dL 12/16/2022 4:29 AM [facility] Anion Gap 12 8 - 18 12/16/2022 4:29 AM [facility] BUN/Creatinine Ratio 23 7 - 23 12/16/2022 4:29 AM [facility] Osmolality Calculated 277 270 - 300 mOsm/kg 12/16/2022 4:29 AM [facility] eGFR by CKD-EPI >90 >=90 mL/min/1.7 3 m2 12/16/2022 4:29 AM [facility] Blood BLOOD SPECIMEN / Unknown Lab Venipuncture / Unknown 12/16/2022 3:49 AM CDT 12/16/2022 4:14 AM T Neville Hewitt III, MD LAB - CHEMISTRY ORDERABLES [facility] [address] [place] [address], [facility] [phone] * (ABNORMAL) CBC W AUTO DIFFERENTIAL (12/16/2022 3:49 AM CDT) WBC 11.2(H) 3.5 - 10.5 10? 3 /uL 12/16/2022 5:19 AM [facility] RBC 4.05(L) 4.30 - 5.70 10? 6 /uL 12/16/2022 5:19 AM [facility] Hemoglobin 12.1 12.0 - 17.6 g/dL 12/16/2022 5:19 AM [facility] Hematocrit 38.2 35.2 - 51.7 % 12/16/2022 5:19 AM [facility] MCV 94.3 80.7 - 98.3 fL 12/16/2022 5:19 AM [facility] MCH 29.9 26.7 - 34.0 pg 12/16/2022 5:19 AM [facility] MCHC 31.7 30.8 - 35.9 g/dL 12/16/2022 5:19 AM [facility] RDW-SD 58.3(H) 36.0 - 50.0 fL 12/16/2022 5:19 AM [facility] RDW-CV 16.7(H) 11.2 - 14.8 % 12/16/2022 5:19 AM [facility] Platelet Count 12/16/2022 5:19 AM [facility] Comment: Platelets are clumped, appear as Decreased on the slide. ?? Notified Armando Villalta RN at 0518 on 12/16/2022. MPV 12/16/2022 5:19 AM [facility] Comment:Unable to Report nRBC Absolute 0.00 0 10? 3 /uL 12/16/2022 5:19 AM [facility] nRBC Auto 0.0 0 /100 WBC 12/16/2022 5:19 AM [facility] Neutrophils % 69.4 35.0 - 70.0 % 12/16/2022 5:19 AM [facility] Lymphocytes % 20.4 20.0 - 43.0 % 12/16/2022 5:19 AM [facility] Monocytes % 7.7 5.0 - 13.0 % 12/16/2022 5:19 AM [facility] Eosinophils % 2.0 0.0 - 6.0 % 12/16/2022 5:19 AM [facility] Basophil % 0.2 0.0 - 2.0 % 12/16/2022 5:19 AM [facility] Neutrophils Absolute 7.81(H) 1.60 - 7.00 10? 3 /uL 12/16/2022 5:19 AM [facility] Lymphocyte Absolute 2.29 1.10 - 3.90 10? 3 /uL 12/16/2022 5:19 AM [facility] Monocytes Absolute 0.86 0.26 - 1.07 10? 3 /uL 12/16/2022 5:19 AM [facility] Eosinophils Absolute 0.22 0.00 - 0.47 10? 3 /uL 12/16/2022 5:19 AM [facility] Basophils Absolute 0.02 0.00 - 0.08 10? 3 /uL 12/16/2022 5:19 AM [facility] Immature Granulocytes % 0.3 0.0 - 1.0 % 12/16/2022 5:19 AM [facility] Immature Granulocytes Absolute 0.03 12/16/2022 5:19 AM [facility] Blood BLOOD SPECIMEN / Unknown Lab Venipuncture / Unknown 12/16/2022 3:49 AM CDT 12/16/2022 4:04 AM CDT Neville Hewitt III, MD LAB - HEMATOLOGY ORDERABLES Performing Organization Address [facility]/State/[facility] Co de Phone Number [facility] [address] [place] [address], [facility] [phone] * (ABNORMAL) GLUCOSE - POINT OF CARE (12/15/2022 11:34 PM CDT) Glucose WB/POC 119(H) 70 - 115 mg/dL 12/15/2022 11:48 PM T [facility] Specimen Type Cap Fingerstick 2022 11:48 PM [facility] Blood BLOOD SPECIMEN / Unknown 12/15/2022 11:34 PM CDT 12/15/2022 11:48 PM CDT Feliciano Madrid MD LAB - POINT OF CARE ORDERABLES Performing Organization Address City/[facility]/ZIP Co de Phone Number [address] [address], [place] [phone] * (ABNORMAL) GLUCOSE - POINT OF CARE (12/15/2022 5:52 PM CDT) Glucose WB/POC 135(H) 70 - 115 mg/dL 12/16/2022 7:41 AM CDT [facility] Specimen Type Cap Fingerstick 2022 7:41 AM CDT [facility] Blood BLOOD SPECIMEN / Unknown 12/15/2022 5:52 PM CDT 12/16/2022 7:41 AM CDT Feliciano Madrid MD LAB - POINT OF CARE ORDERABLES Performing Organization Address City/[facility]/ZIP Co de Phone Number [address] [address], [place] [phone] * GLUCOSE - POINT OF CARE (12/15/2022 12:58 PM CDT) Glucose WB/POC 112 70 - 115 mg/dL 12/15/2022 1:02 PM CDT [facility] Specimen Type Cap Fingerstick 2022 1:02 PM CDT [facility] Blood BLOOD SPECIMEN / Unknown 12/15/2022 12:58 PM CDT 12/15/2022 1:02 PM CDT Feliciano Madrid MD LAB - POINT OF CARE ORDERABLES [address] [address], [place] [phone] * MAGNESIUM BLOOD (12/15/2022 8:18 AM CDT) Magnesium 1.9 1.6 - 2.6 mg/dL 12/15/2022 8:55 AM [facility] Blood BLOOD SPECIMEN / Unknown Lab Venipuncture / Unknown 12/15/2022 8:18 AM CDT 12/15/2022 8:29 AM T Neville Hewitt III, MD LAB - CHEMISTRY ORDERABLES [facility] [address] [place] [address], [facility] [phone] * (ABNORMAL) RENAL FUNCTION PANEL (12/15/2022 8:18 AM CDT) BUN 11 7 - 26 mg/dL 12/15/2022 8:55 AM [facility] Creatinine 0.51(L) 0.71 - 1.16 mg/dL 12/15/2022 8:55 AM [facility] Sodium 135(L) 136 - 145 mmol/L 12/15/2022 8:55 AM [facility] Potassium 4.2 3.5 - 4.5 mmol/L 12/15/2022 8:55 AM [facility] Chloride 103 98 - 107 mmol/L 12/15/2022 8:55 AM [facility] CO2 27 22 - 29 mmol/L 12/15/2022 8:55 AM [facility] Glucose 110 70 - 115 mg/dL 12/15/2022 8:55 AM [facility] Albumin 2.3(L) 3.4 - 5.0 g/dL 12/15/2022 8:55 AM [facility] Calcium 9.3 8.4 - 10.2 mg/dL 12/15/2022 8:55 AM [facility] Phosphorus 2.8 2.8 - 5.1 mg/dL 12/15/2022 8:55 AM [facility] Anion Gap 9 8 - 18 12/15/2022 8:55 AM [facility] BUN/Creatinine Ratio 22 7 - 23 12/15/2022 8:55 AM [facility] Osmolality Calculated 280 270 - 300 mOsm/kg 12/15/2022 8:55 AM [facility] eGFR by CKD-EPI >90 >=90 mL/min/1.7 3 m2 12/15/2022 8:55 AM [facility] Blood BLOOD SPECIMEN / Unknown Lab Venipuncture / Unknown 12/15/2022 8:18 AM CDT 12/15/2022 8:29 AM CDT Neville Hewitt III, MD LAB - CHEMISTRY ORDERABLES Performing Organization Address City/State/[facility] Co de Phone Number [facility] [address] [place] [address], [facility] [phone] * (ABNORMAL) CBC W AUTO DIFFERENTIAL (12/15/2022 8:18 AM CDT) WBC 9.2 3.5 - 10.5 10? 3 /uL 12/15/2022 8:33 AM [facility] RBC 3.74(L) 4.30 - 5.70 10? 6 /uL 12/15/2022 8:33 AM [facility] Hemoglobin 11.3(L) 12.0 - 17.6 g/dL 12/15/2022 8:33 AM [facility] Hematocrit 33.6(L) 35.2 - 51.7 % 12/15/2022 8:33 AM [facility] MCV 89.8 80.7 - 98.3 fL 12/15/2022 8:33 AM [facility] MCH 30.2 26.7 - 34.0 pg 12/15/2022 8:33 AM [facility] MCHC 33.6 30.8 - 35.9 g/dL 12/15/2022 8:33 AM [facility] RDW-SD 54.0(H) 36.0 - 50.0 fL 12/15/2022 8:33 AM [facility] RDW-CV 16.3(H) 11.2 - 14.8 % 12/15/2022 8:33 AM [facility] Platelet Count 123(L) 150 - 400 10? 3 /uL 12/15/2022 8:33 AM [facility] MPV 11.9 9.4 - 12.9 fL 12/15/2022 8:33 AM [facility] nRBC Absolute 0.00 0 10? 3 /uL 12/15/2022 8:33 AM [facility] nRBC Auto 0.0 0 /100 WBC 12/15/2022 8:33 AM [facility] Neutrophils % 58.1 35.0 - 70.0 % 12/15/2022 8:33 AM [facility] Lymphocytes % 28.9 20.0 - 43.0 % 12/15/2022 8:33 AM [facility] Monocytes % 10.7 5.0 - 13.0 % 12/15/2022 8:33 AM [facility] Eosinophils % 1.8 0.0 - 6.0 % 12/15/2022 8:33 AM [facility] Basophil % 0.2 0.0 - 2.0 % 12/15/2022 8:33 AM [facility] Neutrophils Absolute 5.36 1.60 - 7.00 10? 3 /uL 12/15/2022 8:33 AM [facility] Lymphocyte Absolute 2.67 1.10 - 3.90 10? 3 /uL 12/15/2022 8:33 AM [facility] Monocytes Absolute 0.99 0.26 - 1.07 10? 3 /uL 12/15/2022 8:33 AM [facility] Eosinophils Absolute 0.17 0.00 - 0.47 10? 3 /uL 12/15/2022 8:33 AM [facility] Basophils Absolute 0.02 0.00 - 0.08 10? 3 /uL 12/15/2022 8:33 AM [facility] Immature Granulocytes % 0.3 0.0 - 1.0 % 12/15/2022 8:33 AM [facility] Immature Granulocytes Absolute 0.03 12/15/2022 8:33 AM [facility] Blood BLOOD SPECIMEN / Unknown Lab Venipuncture / Unknown 12/15/2022 8:18 AM CDT 12/15/2022 8:28 AM T Neville Hewitt III, MD LAB - HEMATOLOGY ORDERABLES [facility] [address] [place] [address], [place] [phone] * (ABNORMAL) GLUCOSE - POINT OF CARE (12/15/2022 7:15 AM CDT) Glucose WB/POC 116(H) 70 - 115 mg/dL 12/15/2022 7:20 AM CDT [facility] Specimen Type Arterial 12/15/2022 7:20 AM CDT [facility] Blood BLOOD SPECIMEN / Unknown 12/15/2022 7:15 AM CDT 12/15/2022 7:20 AM CDT Feliciano Madrid MD LAB - POINT OF CARE ORDERABLES Performing Organization Address City/[facility]/ZIP Co de Phone Number [facility] [address] [place] [address], [place] [phone] * GLUCOSE - POINT OF CARE (12/15/2022 6:13 AM CDT) Glucose WB/POC 104 70 - 115 mg/dL 12/15/2022 7:49 AM CDT [facility] Specimen Type Cap Fingerstick 2022 7:49 AM CDT [facility] Blood BLOOD SPECIMEN / Unknown 12/15/2022 6:13 AM CDT 12/15/2022 7:49 AM CDT Feliciano Madrid MD LAB - POINT OF CARE ORDERABLES [facility] [address] [place] [address], [place] [phone] * (ABNORMAL) GLUCOSE - POINT OF CARE (12/15/2022 1:10 AM CDT) Glucose WB/POC 118(H) 70 - 115 mg/dL 12/15/2022 1:15 AM CDT [facility] Specimen Type Cap Fingerstick 2022 1:15 AM CDT [facility] Blood BLOOD SPECIMEN / Unknown 12/15/2022 1:10 AM CDT 12/15/2022 1:15 AM CDT Feliciano Madrid MD LAB - POINT OF CARE ORDERABLES [facility] [address] [place] [address], [place] [phone] * GLUCOSE - POINT OF CARE (12/14/2022 8:59 PM CDT) Glucose WB/POC 108 70 - 115 mg/dL 12/14/2022 9:02 PM CDT [facility] Specimen Type Cap Fingerstick 2022 9:02 PM CDT [facility] Blood BLOOD SPECIMEN / Unknown 12/14/2022 8:59 PM CDT 12/14/2022 9:02 PM CDT Feliciano Madrid MD LAB - POINT OF CARE ORDERABLES Performing Organization Address City/[facility]/ZIP Co de Phone Number [address] [address], [place] [phone] * GLUCOSE - POINT OF CARE (12/14/2022 4:38 PM CDT) Glucose WB/POC 92 70 - 115 mg/dL 12/14/2022 4:43 PM CDT [facility] Specimen Type Cap Fingerstick 2022 4:43 PM CDT [facility] Blood BLOOD SPECIMEN / Unknown 12/14/2022 4:38 PM CDT 12/14/2022 4:43 PM CDT Feliciano Madrid MD LAB - POINT OF CARE ORDERABLES [address] [address], [place] [phone] * IR PERC G TO GJ TUBE EXCHANGE (12/14/2022 4:07 PM CDT) Anatomical Region Laterality Modality Abdomen X-Ray Angiograph y 12/16/2022 11:1 2 AM CDT Impressions 12/16/2022 11:17 AM CDT Impression: Successful conversion of the existing 24 [place] gastrostomy catheter for a new 18-[place] balloon-retention gastrojejunostomy catheter under fluoroscopic guidance, as [...] lidocaine Procedure: Exchange of the existing 24 [place] gastrostomy catheter for a new 18-[place] balloon-retention gastrojejunostomy catheter under fluoroscopic guidance. Fluoroscopic time: 2.4 minutes ?Contrast: 20 mL of [id number]-300 Procedure in detail: The procedure, risks, and possible complications were explained to the patient's family in detail, and informed consent was obtained. The patient was placed supine on the procedure table. A program scheduler film of abdomen was obtained, which showed gastrostomy catheter in place. Contrast was hand injected through the existing gastrostomy catheter and showed opacification of the gastric lumen. A 0.035 inch Bentson wire was advanced into the stomach through the existing catheter which was subsequently removed over the wire. Using a 4 [place] Kumpe catheter, the guidewire was advanced into the jejunum under fluoroscopic guidance. The Bentson guidewire was exchanged for a stiffer Amplatz wire. A new 18-[place] gastrojejunostomy catheter was then advanced over the [...] lidocaine Procedure: Exchange of the existing 24 [place] gastrostomy catheter for a new 18-[place] balloon-retention gastrojejunostomy catheter under fluoroscopic guidance. Fluoroscopic time: 2.4 minutes Contrast: 20 mL of [id number]-300 Procedure in detail: The procedure, risks, and possible complications were explained to the patient's family in detail, and informed consent was obtained. Thepatient was placed supine on the procedure table. A program scheduler film of abdomen was obtained, which showed gastrostomy catheter in place. Contrast was hand injected through the existing gastrostomy catheter and showed opacification of the gastric lumen. A 0.035 inch Bentson wire was advanced into the stomach through the existing catheter which was subsequently removed over the wire. Using a 4 [place] Kumpe catheter, the guidewire was advanced into the jejunum under fluoroscopic guidance. The Bentson guidewire was exchanged for a stiffer Amplatz wire. A [id number] gastrojejunostomy catheter was then advanced over the wire under fluoroscopic guidance. The catheter was secured by balloon insufflation. Hand injection of contrast through the gastric port confirmedintraluminal position within the stomach. Hand injection of contrast through thejejunal port confirmed intraluminal position within the jejunum. Steriledressing was applied. The patient tolerated the procedure well [facility]. There were no immediate complicationsassociated with the procedure. Impression: Successful conversion of the existing 24 [place] gastrostomy catheter for a new 18-[place] balloon-retention gastrojejunostomycatheter under fluoroscopic guidance, as described [...] - 115 mg/dL 12/14/2022 12:42 PM CDT [facility] Specimen Type Cap Fingerstick 2022 12:42 PM CDT [facility] Blood BLOOD SPECIMEN / Unknown 12/14/2022 12:34 PM CDT 12/14/2022 12:42 PM CDT Feliciano Madrid MD LAB - POINT OF CARE ORDERABLES [address] [address], [facility] [phone] * XR CHEST 1VW PORTABLE (12/14/2022 8:55 AM CDT) Anatomical Region Laterality Modality Chest Radiographic Cynthia ging 12/14/2022 8:55 AM CDT Narrative 12/14/2022 1:25 PM CDT EXAMINATION: XR CHEST 1VW PORTABLE DATE/TIME OF EXAM: ??12/14/2022 8:55 AM, LOCATION ??[facility] HISTORY: U07.1: COVID-19 leukocytosis w increasing o2 [...] abnormality. > Dictated by Lamar Mercedes MD (residential recycle driver). Bebo Thomason MD have personally reviewed and interpreted this examination/study. > Interpreting Provider: Bebo Kuo MD on 12/14/2022 1:25 PM Procedure Note Bebo Kuo MD - 12/14/2022 EXAMINATION: XR CHEST 1VW PORTABLE DATE/TIME OF EXAM: 12/14/2022 8:55 AM, LOCATION [facility] HISTORY: U07.1: COVID-19 leukocytosis w increasing o2 [...] abnormality. > Dictated by Lamar Mercedes MD (residential recycle driver). Bebo Thomason MD have personally reviewed and interpreted this examination/study. > Interpreting Provider: Bebo Kuo MD on 31:25 PM Feliciano Madrid MD DIAGNOSTIC IMAGING O RDERABLES * GLUCOSE - POINT OF CARE (12/14/2022 8:47 AM CDT) [facility] Glucose WB/POC 108 70 - 115 mg/dL 12/15/2022 12:31 AM CDT [facility] Specimen Type Cap Fingerstick 2022 12:31 AM CDT [facility] Blood BLOOD SPECIMEN / Unknown 12/14/2022 8:47 AM CDT 12/15/2022 12:31 AM CDT Feliciano Madrid MD LAB - POINT OF CARE ORDERABLES [address] [address], [facility] [phone] * MAGNESIUM BLOOD (12/14/2022 6:38 AM CDT) [facility] Magnesium 1.7 1.6 - 2.6 mg/dL 12/14/2022 7:18 AM CDT [facility] Blood BLOOD SPECIMEN / Unknown Venipuncture / Unknown 12/14/2022 6:38 AM CDT 12/14/2022 6:48 AM CDT Neville Hewitt III, MD LAB - CHEMISTRY ORDERABLES [address] [address], [place] [phone] * (ABNORMAL) RENAL FUNCTION PANEL (12/14/2022 6:38 AM CDT) [facility] BUN 10 7 - 26 mg/dL 12/14/2022 7:18 AM CDT [facility] Creatinine 0.47(L) 0.71 - 1.16 mg/dL 12/14/2022 7:18 AM CDT [facility] Sodium 135(L) 136 - 145 mmol/L 12/14/2022 7:18 AM CDT [facility] Potassium 4.2 3.5 - 4.5 mmol/L 12/14/2022 7:18 AM [facility] Chloride 104 98 - 107 mmol/L 12/14/2022 7:18 AM [facility] CO2 23 22 - 29 mmol/L 12/14/2022 7:18 AM [facility] Glucose 114 70 - 115 mg/dL 12/14/2022 7:18 AM [facility] Albumin 2.4(L) 3.4 - 5.0 g/dL 12/14/2022 7:18 AM [facility] Calcium 9.9 8.4 - 10.2 mg/dL 12/14/2022 7:18 AM [facility] Phosphorus 3.5 2.8 - 5.1 mg/dL 12/14/2022 7:18 AM [facility] Anion Gap 12 8 - 18 12/14/2022 7:18 AM [facility] BUN/Creatinine Ratio 21 7 - 23 12/14/2022 7:18 AM [facility] Osmolality Calculated 280 270 - 300 mOsm/kg 12/14/2022 7:18 AM [facility] eGFR by CKD-EPI >90 >=90 mL/min/1.7 3 m2 12/14/2022 7:18 AM [facility] Blood BLOOD SPECIMEN / Unknown Venipuncture / Unknown 12/14/2022 6:38 AM CDT 12/14/2022 6:48 AM T Neville Hewitt III, MD LAB - CHEMISTRY ORDERABLES Performing Organization Address City/State/[facility] Co de Phone Number [facility] [address] [place] [address], [facility] [phone] * (ABNORMAL) CBC W AUTO DIFFERENTIAL (12/14/2022 6:38 AM CDT) WBC 16.9(H) 3.5 - 10.5 10? 3 /uL 12/14/2022 8:47 AM [facility] RBC 3.94(L) 4.30 - 5.70 10? 6 /uL 12/14/2022 8:47 AM [facility] Hemoglobin 11.9(L) 12.0 - 17.6 g/dL 12/14/2022 8:47 AM [facility] Hematocrit 35.9 35.2 - 51.7 % 12/14/2022 8:47 AM [facility] MCV 91.1 80.7 - 98.3 fL 12/14/2022 8:47 AM [facility] MCH 30.2 26.7 - 34.0 pg 12/14/2022 8:47 AM [facility] MCHC 33.1 30.8 - 35.9 g/dL 12/14/2022 8:47 AM [facility] RDW-SD 55.2(H) 36.0 - 50.0 fL 12/14/2022 8:47 AM [facility] RDW-CV 16.4(H) 11.2 - 14.8 % 12/14/2022 8:47 AM [facility] Platelet Count 134(L) 150 - 400 10? 3 /uL 12/14/2022 8:47 AM [facility] Comment: Checked by peripheral smear. This is an appended report. ??These results have been appended to a previously preliminary verified report. MPV 12/14/2022 8:47 AM [facility] Comment:Unable to Report Immature Platelet Fraction 12/14/2022 8:47 AM [facility] Comment:Unable to Report nRBC Absolute 0.00 0 10? 3 /uL 12/14/2022 8:47 AM [facility] nRBC Auto 0.0 0 /100 WBC 12/14/2022 8:47 AM [facility] Neutrophils % 73.9(H) 35.0 - 70.0 % 12/14/2022 8:47 AM [facility] Lymphocytes % 15.8(L) 20.0 - 43.0 % 12/14/2022 8:47 AM [facility] Monocytes % 9.3 5.0 - 13.0 % 12/14/2022 8:47 AM [facility] Eosinophils % 0.4 0.0 - 6.0 % 12/14/2022 8:47 AM [facility] Basophil % 0.2 0.0 - 2.0 % 12/14/2022 8:47 AM [facility] Neutrophils Absolute 12.47(H) 1.60 - 7.00 10? 3 /uL 12/14/2022 8:47 AM [facility] Lymphocyte Absolute 2.67 1.10 - 3.90 10? 3 /uL 12/14/2022 8:47 AM [facility] Monocytes Absolute 1.56(H) 0.26 - 1.07 10? 3 /uL 12/14/2022 8:47 AM [facility] Eosinophils Absolute 0.07 0.00 - 0.47 10? 3 /uL 12/14/2022 8:47 AM [facility] Basophils Absolute 0.03 0.00 - 0.08 10? 3 /uL 12/14/2022 8:47 AM [facility] Immature Granulocytes % 0.4 0.0 - 1.0 % 12/14/2022 8:47 AM [facility] Immature Granulocytes Absolute 0.06 12/14/2022 8:47 AM [facility] Blood BLOOD SPECIMEN / Unknown Venipuncture / Unknown 12/14/2022 6:38 AM CDT 12/14/2022 6:49 AM CDT Neville Hewitt III, MD LAB - HEMATOLOGY ORDERABLES Performing Organization Address [facility]/State/[facility] Co de Phone Number [address] [address], [facility] [phone] * (ABNORMAL) GLUCOSE - POINT OF CARE (12/14/2022 3:29 AM CDT) Glucose WB/POC 117(H) 70 - 115 mg/dL 12/14/2022 6:24 AM T [facility] Specimen Type Cap Fingerstick 2022 6:24 AM [facility] Blood BLOOD SPECIMEN / Unknown 12/14/2022 3:29 AM CDT 12/14/2022 6:24 AM CDT Feliciano Madrid MD LAB - POINT OF CARE ORDERABLES [address] [address], [place] [phone] * (ABNORMAL) GLUCOSE - POINT OF CARE (12/14/2022 12:21 AM CDT) Glucose WB/POC 143(H) 70 - 115 mg/dL 12/14/2022 12:26 AM CDT [facility] Specimen Type Cap Fingerstick 2022 12:26 AM CDT [facility] Blood BLOOD SPECIMEN / Unknown 12/14/2022 12:21 AM CDT 12/14/2022 12:26 AM CDT Felicaino Madrid MD LAB - POINT OF CARE ORDERABLES Performing Organization Address City/[facility]/ZIP Co de Phone Number [address] [address], [place] [phone] * GLUCOSE - POINT OF CARE (12/13/2022 8:47 PM CDT) Glucose WB/POC 114 70 - 115 mg/dL 12/13/2022 9:03 PM CDT [facility] Specimen Type Cap Fingerstick 2022 9:03 PM CDT [facility] Blood BLOOD SPECIMEN / Unknown 12/13/2022 8:47 PM CDT 12/13/2022 9:03 PM CDT Feliciano Madrid MD LAB - POINT OF CARE ORDERABLES [address] [address], [place] [phone] * GLUCOSE - POINT OF CARE (12/13/2022 4:05 PM CDT) Glucose WB/POC 85 70 - 115 mg/dL 12/13/2022 4:13 PM CDT [facility] Specimen Type Arterial 12/13/2022 4:13 PM CDT [facility] Blood BLOOD SPECIMEN / Unknown 12/13/2022 4:05 PM CDT 12/13/2022 4:13 PM CDT Feliciano Madrid MD LAB - POINT OF CARE ORDERABLES [facility] [address] [place] [address], [place] [phone] * GLUCOSE - POINT OF CARE (12/13/2022 11:27 AM CDT) Glucose WB/POC 86 70 - 115 mg/dL 12/13/2022 11:38 AM CDT [facility] Specimen Type Arterial 12/13/2022 11:38 AM CDT [facility] Blood BLOOD SPECIMEN / Unknown 12/13/2022 11:27 AM CDT 12/13/2022 11:38 AM CDT Feliciano Madrid MD LAB - POINT OF CARE ORDERABLES [address] [address], [place] [phone] * (ABNORMAL) CBC W AUTO DIFFERENTIAL (12/13/2022 11:18 AM CDT) WBC 11.8(H) 3.5 - 10.5 10? 3 /uL 12/13/2022 12:37 PM CDT [facility] RBC 4.52 4.30 - 5.70 10? 6 /uL 12/13/2022 12:37 PM T [facility] Hemoglobin 13.7 12.0 - 17.6 g/dL 12/13/2022 12:37 PM T [facility] Hematocrit 42.2 35.2 - 51.7 % 12/13/2022 12:37 PM [facility] MCV 93.4 80.7 - 98.3 fL 12/13/2022 12:37 PM T [facility] MCH 30.3 26.7 - 34.0 pg 12/13/2022 12:37 PM T [facility] MCHC 32.5 30.8 - 35.9 g/dL 12/13/2022 12:37 PM [facility] RDW-SD 55.5(H) 36.0 - 50.0 fL 12/13/2022 12:37 PM [facility] RDW-CV 16.2(H) 11.2 - 14.8 % 12/13/2022 12:37 PM [facility] Platelet Count 12/13/2022 12:37 PM [facility] Comment: Platelets are clumped, appear as adequate on the slide. ??A blue top citrated tube is recommended for a platelet count. Notified Mercy Coyle RN at 1236 on 12/13/22. MPV 12/13/2022 12:37 PM [facility] Comment:Unable to Report Immature Platelet Fraction 12/13/2022 12:37 PM [facility] Comment:Unable to Report nRBC Absolute 0.00 0 10? 3 /uL 12/13/2022 12:37 PM [facility] nRBC Auto 0.0 0 /100 WBC 12/13/2022 12:37 PM [facility] Neutrophils % 64.9 35.0 - 70.0 % 12/13/2022 12:37 PM [facility] Lymphocytes % 22.4 20.0 - 43.0 % 12/13/2022 12:37 PM [facility] Monocytes % 9.3 5.0 - 13.0 % 12/13/2022 12:37 PM [facility] Eosinophils % 2.8 0.0 - 6.0 % 12/13/2022 12:37 PM [facility] Basophil % 0.3 0.0 - 2.0 % 12/13/2022 12:37 PM [facility] Neutrophils Absolute 7.67(H) 1.60 - 7.00 10? 3 /uL 12/13/2022 12:37 PM [facility] Lymphocyte Absolute 2.65 1.10 - 3.90 10? 3 /uL 12/13/2022 12:37 PM [facility] Monocytes Absolute 1.10(H) 0.26 - 1.07 10? 3 /uL 12/13/2022 12:37 PM CDT [facility] Eosinophils Absolute 0.33 0.00 - 0.47 10? 3 /uL 12/13/2022 12:37 PM CDT [facility] Basophils Absolute 0.03 0.00 - 0.08 10? 3 /uL 12/13/2022 12:37 PM CDT [facility] Immature Granulocytes % 0.3 0.0 - 1.0 % 12/13/2022 12:37 PM CDT [facility] Immature Granulocytes Absolute 0.03 12/13/2022 12:37 PM CDT [facility] Blood BLOOD SPECIMEN / Unknown Lab Venipuncture / Unknown 12/13/2022 11:18 AM CDT 12/13/2022 11:45 AM CDT Neville Hewitt III, MD LAB - HEMATOLOGY ORDERABLES Performing Organization Address City/[facility]/ZIP Co de Phone Number [address] [address], [facility] [phone] * GLUCOSE - POINT OF CARE (12/13/2022 7:57 AM CDT) Glucose WB/POC 86 70 - 115 mg/dL 12/13/2022 8:02 AM CDT [facility] Specimen Type Arterial 12/13/2022 8:02 AM CDT [facility] Blood BLOOD SPECIMEN / Unknown 12/13/2022 7:57 AM CDT 12/13/2022 8:02 AM CDT Feliciano Madrid MD LAB - POINT OF CARE ORDERABLES [address] [address], [facility] [phone] * GLUCOSE - POINT OF CARE (12/13/2022 4:34 AM CDT) Glucose WB/POC 85 70 - 115 mg/dL 12/14/2022 8:23 AM CDT [facility] Specimen Type Cap Fingerstick 2022 8:23 AM CDT [facility] Blood BLOOD SPECIMEN / Unknown 12/13/2022 4:34 AM CDT 12/14/2022 8:23 AM CDT Feliciano Madrid MD LAB - POINT OF CARE ORDERABLES Performing Organization Address City/[facility]/ZIP Co de Phone Number [address] [address], [facility] [phone] * MAGNESIUM BLOOD (12/13/2022 1:46 AM CDT) Pathologist [facility] Magnesium 1.8 1.6 - 2.6 mg/dL 12/13/2022 3:10 AM [facility] Blood BLOOD SPECIMEN / Unknown Lab Venipuncture / Unknown 12/13/2022 1:46 AM CDT 12/13/2022 2:42 AM CDT Neville Hewitt III, MD LAB - CHEMISTRY ORDERABLES Performing Organization Address City/[facility]/ZIP Co de Phone Number [address] [address], [facility] [phone] * (ABNORMAL) RENAL FUNCTION PANEL (12/13/2022 1:46 AM CDT) BUN 12 7 - 26 mg/dL 12/13/2022 3:10 AM [facility] Creatinine 0.49(L) 0.71 - 1.16 mg/dL 12/13/2022 3:10 AM [facility] Sodium 135(L) 136 - 145 mmol/L 12/13/2022 3:10 AM [facility] Potassium 4.7(H) 3.5 - 4.5 mmol/L 12/13/2022 3:10 AM [facility] Chloride 103 98 - 107 mmol/L 12/13/2022 3:10 AM [facility] CO2 25 22 - 29 mmol/L 12/13/2022 3:10 AM [facility] Glucose 94 70 - 115 mg/dL 12/13/2022 3:10 AM [facility] Albumin 2.5(L) 3.4 - 5.0 g/dL 12/13/2022 3:10 AM [facility] Calcium 9.9 8.4 - 10.2 mg/dL 12/13/2022 3:10 AM [facility] Phosphorus 2.6(L) 2.8 - 5.1 mg/dL 12/13/2022 3:10 AM [facility] Anion Gap 12 8 - 18 12/13/2022 3:10 AM [facility] BUN/Creatinine Ratio 24(H) 7 - 23 12/13/2022 3:10 AM [facility] Osmolality Calculated 280 270 - 300 mOsm/kg 12/13/2022 3:10 AM [facility] eGFR by CKD-EPI >90 >=90 mL/min/1.7 3 m2 12/13/2022 3:10 AM [facility] Blood BLOOD SPECIMEN / Unknown Lab Venipuncture / Unknown 12/13/2022 1:46 AM CDT 12/13/2022 2:42 AM CDT Neville Hewitt III, MD LAB - CHEMISTRY ORDERABLES [facility] [address] [place] [address], [facility] [phone] * PT-INR [facility] (12/13/2022 1:46 AM CDT) PT 13.3 12.1 - 14.8 Seconds 12/13/2022 3:06 AM [facility] INR 1.0 See Comment 12/13/2022 3:06 AM [facility] Comment:The suggested therap eutic range for standard coumadin (warfarin) therapy is an INR of 2.0-3.0. For high-risk patients (Mechanical Mitral Valve Prosthesis, etc.), the suggested prophylactic therapeutic range is an INR of 2.5-3.5. Blood BLOOD SPECIMEN / Unknown Lab Venipuncture / Unknown 12/13/2022 1:46 AM CDT 12/13/2022 2:42 AM CDT Feliciano Madrid MD LAB - COAGULATION OR DERABLES [address] [address], [facility] [phone] * (ABNORMAL) GLUCOSE - POINT OF CARE (12/13/2022 12:48 AM CDT) Glucose WB/POC 116(H) 70 - 115 mg/dL 12/13/2022 12:50 AM CDT [facility] Specimen Type Cap Fingerstick 2022 12:50 AM CDT [facility] Blood BLOOD SPECIMEN / Unknown 12/13/2022 12:48 AM CDT 12/13/2022 12:49 AM CDT Feliciano Madrid MD LAB - POINT OF CARE ORDERABLES Performing Organization Address City/[facility]/ZIP Co de Phone Number [address] [address], [place] [phone] * GLUCOSE - POINT OF CARE (12/12/2022 10:08 PM CDT) Glucose WB/POC 101 70 - 115 mg/dL 12/12/2022 10:09 PM CDT [facility] Specimen Type Cap Fingerstick 2022 10:09 PM CDT [facility] Blood BLOOD SPECIMEN / Unknown 12/12/2022 10:08 PM CDT 12/12/2022 10:09 PM CDT Feliciano Madrid MD LAB - POINT OF CARE ORDERABLES [address] [address], [place] [phone] * (ABNORMAL) GLUCOSE - POINT OF CARE (12/12/2022 5:13 PM CDT) Glucose WB/POC 119(H) 70 - 115 mg/dL 12/12/2022 5:19 PM CDT [facility] Specimen Type Cap Fingerstick 2022 5:19 PM T [facility] Blood BLOOD SPECIMEN / Unknown 12/12/2022 5:13 PM CDT 12/12/2022 5:19 PM CDT Feliciano Madrid MD LAB - POINT OF CARE ORDERABLES [facility] [address] [place] [address], [facility] [phone] * (ABNORMAL) CBC W AUTO DIFFERENTIAL (12/12/2022 3:30 PM CDT) WBC 9.2 3.5 - 10.5 10? 3 /uL 12/12/2022 3:51 PM [facility] RBC 3.80(L) 4.30 - 5.70 10? 6 /uL 12/12/2022 3:51 PM [facility] Hemoglobin 11.3(L) 12.0 - 17.6 g/dL 12/12/2022 3:51 PM [facility] Hematocrit 34.7(L) 35.2 - 51.7 % 12/12/2022 3:51 PM [facility] MCV 91.3 80.7 - 98.3 fL 12/12/2022 3:51 PM [facility] MCH 29.7 26.7 - 34.0 pg 12/12/2022 3:51 PM [facility] MCHC 32.6 30.8 - 35.9 g/dL 12/12/2022 3:51 PM [facility] RDW-SD 54.1(H) 36.0 - 50.0 fL 12/12/2022 3:51 PM [facility] RDW-CV 16.2(H) 11.2 - 14.8 % 12/12/2022 3:51 PM [facility] Platelet Count 202 150 - 400 10? 3 /uL 12/12/2022 3:51 PM [facility] MPV 11.5 9.4 - 12.9 fL 12/12/2022 3:51 PM [facility] nRBC Absolute 0.00 0 10? 3 /uL 12/12/2022 3:51 PM T [facility] nRBC Auto 0.0 0 /100 WBC 12/12/2022 3:51 PM [facility] Neutrophils % 55.5 35.0 - 70.0 % 12/12/2022 3:51 PM [facility] Lymphocytes % 30.7 20.0 - 43.0 % 12/12/2022 3:51 PM T [facility] Monocytes % 9.2 5.0 - 13.0 % 12/12/2022 3:51 PM [facility] Eosinophils % 4.1 0.0 - 6.0 % 12/12/2022 3:51 PM [facility] Basophil % 0.3 0.0 - 2.0 % 12/12/2022 3:51 PM [facility] Neutrophils Absolute 5.08 1.60 - 7.00 10? 3 /uL 12/12/2022 3:51 PM T [facility] Lymphocyte Absolute 2.81 1.10 - 3.90 10? 3 /uL 12/12/2022 3:51 PM CDT [facility] Monocytes Absolute 0.84 0.26 - 1.07 10? 3 /uL 12/12/2022 3:51 PM T [facility] Eosinophils Absolute 0.38 0.00 - 0.47 10? 3 /uL 12/12/2022 3:51 PM T [facility] Basophils Absolute 0.03 0.00 - 0.08 10? 3 /uL 12/12/2022 3:51 PM T [facility] Immature Granulocytes % 0.2 0.0 - 1.0 % 12/12/2022 3:51 PM [facility] Immature Granulocytes Absolute 0.02 12/12/2022 3:51 PM [facility] Blood BLOOD SPECIMEN / Unknown Lab Venipuncture / Unknown 12/12/2022 3:30 PM CDT 12/12/2022 3:44 PM CDT Neville Hewitt III, MD LAB - HEMATOLOGY ORDERABLES Performing Organization Address City/State/[facility] Co de Phone Number [facility] [address] [place] [address], [place] [phone] * (ABNORMAL) GLUCOSE - POINT OF CARE (12/12/2022 12:49 PM CDT) Glucose WB/POC 126(H) 70 - 115 mg/dL 12/12/2022 1:12 PM CDT [facility] Specimen Type Cap Fingerstick 2022 1:12 PM CDT [facility] Blood BLOOD SPECIMEN / Unknown 12/12/2022 12:49 PM CDT 12/12/2022 1:12 PM CDT Feliciano Madrid MD LAB - POINT OF CARE ORDERABLES [facility] [address] [place] [address], [place] [phone] * (ABNORMAL) GLUCOSE - POINT OF CARE (12/12/2022 8:47 AM CDT) Glucose WB/POC 122(H) 70 - 115 mg/dL 12/12/2022 8:51 AM CDT [facility] Specimen Type Cap Fingerstick 2022 8:51 AM CDT [facility] Blood BLOOD SPECIMEN / Unknown 12/12/2022 8:47 AM CDT 12/12/2022 8:51 AM CDT Feliciano Madrid MD LAB - POINT OF CARE ORDERABLES [facility] [address] [place] [address], [place] [phone] * (ABNORMAL) GLUCOSE - POINT OF CARE (12/12/2022 4:24 AM CDT) Glucose WB/POC 128(H) 70 - 115 mg/dL 12/12/2022 4:29 AM CDT [facility] Specimen Type Cap Fingerstick 2022 4:29 AM CDT [facility] Blood BLOOD SPECIMEN / Unknown 12/12/2022 4:24 AM CDT 12/12/2022 4:29 AM CDT Feliciano Madrid MD LAB - POINT OF CARE ORDERABLES [address] [address], [facility] [phone] * MAGNESIUM BLOOD (12/12/2022 3:42 AM CDT) Magnesium 1.7 1.6 - 2.6 mg/dL 12/12/2022 4:27 AM [facility] Blood BLOOD SPECIMEN / Unknown Lab Venipuncture / Unknown 12/12/2022 3:42 AM CDT 12/12/2022 3:59 AM CDT Neville Hewitt III, MD LAB - CHEMISTRY ORDERABLES Performing Organization Address City/[facility]/ZIP Co de Phone Number [address] [address], [facility] [phone] * (ABNORMAL) RENAL FUNCTION PANEL (12/12/2022 3:42 AM CDT) BUN 11 7 - 26 mg/dL 12/12/2022 4:27 AM [facility] Creatinine 0.51(L) 0.71 - 1.16 mg/dL 12/12/2022 4:27 AM [facility] Sodium 139 136 - 145 mmol/L 12/12/2022 4:27 AM [facility] Potassium 4.9(H) 3.5 - 4.5 mmol/L 12/12/2022 4:27 AM [facility] Chloride 105 98 - 107 mmol/L 12/12/2022 4:27 AM [facility] CO2 27 22 - 29 mmol/L 12/12/2022 4:27 AM [facility] Glucose 116(H) 70 - 115 mg/dL 12/12/2022 4:27 AM [facility] Albumin 2.4(L) 3.4 - 5.0 g/dL 12/12/2022 4:27 AM [facility] Calcium 9.9 8.4 - 10.2 mg/dL 12/12/2022 4:27 AM [facility] Phosphorus 2.7(L) 2.8 - 5.1 mg/dL 12/12/2022 4:27 AM [facility] Anion Gap 12 8 - 18 12/12/2022 4:27 AM [facility] BUN/Creatinine Ratio 22 7 - 23 12/12/2022 4:27 AM [facility] Osmolality Calculated 288 270 - 300 mOsm/kg 12/12/2022 4:27 AM [facility] eGFR by CKD-EPI >90 >=90 mL/min/1.7 3 m2 12/12/2022 4:27 AM [facility] Blood BLOOD SPECIMEN / Unknown Lab Venipuncture / Unknown 12/12/2022 3:42 AM CDT 12/12/2022 3:59 AM CDT Neville Hewitt III, MD LAB - CHEMISTRY ORDERABLES [address] [address], [place] [phone] * (ABNORMAL) GLUCOSE - POINT OF CARE (12/12/2022 12:49 AM CDT) Glucose WB/POC 125(H) 70 - 115 mg/dL 12/12/2022 7:57 AM [facility] Specimen Type Cap Fingerstick 2022 7:57 AM [facility] Blood BLOOD SPECIMEN / Unknown 12/12/2022 12:49 AM CDT 12/12/2022 7:57 AM CDT Feliciano Madrid MD LAB - POINT OF CARE ORDERABLES [address] [address], [place] [phone] * (ABNORMAL) GLUCOSE - POINT OF CARE (12/11/2022 8:44 PM CDT) Glucose WB/POC 126(H) 70 - 115 mg/dL 12/11/2022 9:16 PM CDT [facility] Specimen Type Cap Fingerstick 2022 9:16 PM CDT [facility] Blood BLOOD SPECIMEN / Unknown 12/11/2022 8:44 PM CDT 12/11/2022 9:16 PM CDT Feliciano Madrid MD LAB - POINT OF CARE ORDERABLES [address] [address], [place] [phone] * GLUCOSE - POINT OF CARE (12/11/2022 4:52 PM CDT) Glucose WB/POC 114 70 - 115 mg/dL 12/11/2022 5:50 PM CDT [facility] Specimen Type Cap Fingerstick 2022 5:50 PM CDT [facility] Blood BLOOD SPECIMEN / Unknown 12/11/2022 4:52 PM CDT 12/11/2022 5:50 PM CDT Feliciano Madrid MD LAB - POINT OF CARE ORDERABLES Performing Organization Address City/[facility]/ZIP Co de Phone Number [address] [address], [place] [phone] * GLUCOSE - POINT OF CARE (12/11/2022 1:46 PM CDT) Glucose WB/POC 112 70 - 115 mg/dL 12/11/2022 5:50 PM CDT [facility] Specimen Type Cap Fingerstick 2022 5:50 PM CDT [facility] Blood BLOOD SPECIMEN / Unknown 12/11/2022 1:46 PM CDT 12/11/2022 5:50 PM CDT Dina Pritchard DO LAB - POINT OF CARE ORDERABLES [address] [place] [address], [place] [phone] * GLUCOSE - POINT OF CARE (12/11/2022 9:41 AM CDT) Glucose WB/POC 99 70 - 115 mg/dL 12/11/2022 12:57 PM CDT [facility] Specimen Type Venous 12/11/2022 12:57 PM CDT [facility] Blood BLOOD SPECIMEN / Unknown 12/11/2022 9:41 AM CDT 12/11/2022 12:57 PM CDT Dina Terlingua DO LAB - POINT OF CARE ORDERABLES [address] [address], [place] [phone] * (ABNORMAL) GLUCOSE - POINT OF CARE (12/11/2022 4:57 AM CDT) Glucose WB/POC 117(H) 70 - 115 mg/dL 12/11/2022 6:21 AM CDT [facility] Specimen Type Arterial 12/11/2022 6:21 AM CDT [facility] Blood BLOOD SPECIMEN / Unknown 12/11/2022 4:57 AM CDT 12/11/2022 6:21 AM CDT Dina Terlingua DO LAB - POINT OF CARE ORDERABLES [address] [address], [place] [phone] * MAGNESIUM BLOOD (12/11/2022 4:02 AM CDT) Magnesium 1.7 1.6 - 2.6 mg/dL 12/11/2022 5:56 AM CDT [facility] Blood BLOOD SPECIMEN / Unknown Lab Venipuncture / Unknown 12/11/2022 4:02 AM CDT 12/11/2022 5:39 AM CDT Neville Hewitt III, MD LAB - CHEMISTRY ORDERABLES [facility] [address] [place] [address], [facility] [phone] * (ABNORMAL) RENAL FUNCTION PANEL (12/11/2022 4:02 AM [facility]) BUN 11 7 - 26 mg/dL 12/11/2022 5:56 AM [facility] Creatinine 0.50(L) 0.71 - 1.16 mg/dL 12/11/2022 5:56 AM [facility] Sodium 138 136 - 145 mmol/L 12/11/2022 5:56 AM [facility] Potassium 4.1 3.5 - 4.5 mmol/L 12/11/2022 5:56 AM [facility] Chloride 104 98 - 107 mmol/L 12/11/2022 5:56 AM [facility] CO2 25 22 - 29 mmol/L 12/11/2022 5:56 AM [facility] Glucose 81 70 - 115 mg/dL 12/11/2022 5:56 AM [facility] Albumin 2.6(L) 3.4 - 5.0 g/dL 12/11/2022 5:56 AM [facility] Calcium 10.5(H) 8.4 - 10.2 mg/dL 12/11/2022 5:56 AM [facility] Phosphorus 2.9 2.8 - 5.1 mg/dL 12/11/2022 5:56 AM [facility] Anion Gap 13 8 - 18 12/11/2022 5:56 AM [facility] BUN/Creatinine Ratio 22 7 - 23 12/11/2022 5:56 AM [facility] Osmolality Calculated 284 270 - 300 mOsm/kg 12/11/2022 5:56 AM [facility] eGFR by CKD-EPI >90 >=90 mL/min/1.7 3 m2 12/11/2022 5:56 AM [facility] Blood BLOOD SPECIMEN / Unknown Lab Venipuncture / Unknown 12/11/2022 4:02 AM CDT 12/11/2022 5:39 AM CDT Neville Hewitt III, MD LAB - CHEMISTRY ORDERABLES [facility] [address] [place] [phone], [facility] [phone] * (ABNORMAL) CBC W AUTO DIFFERENTIAL (12/11/2022 4:02 AM CDT) WBC 7.2 3.5 - 10.5 10? 3 /uL 12/11/2022 5:39 AM [facility] RBC 4.53 4.30 - 5.70 10? 6 /uL 12/11/2022 5:39 AM [facility] Hemoglobin 13.2 12.0 - 17.6 g/dL 12/11/2022 5:39 AM [facility] Hematocrit 41.7 35.2 - 51.7 % 12/11/2022 5:39 AM [facility] MCV 92.1 80.7 - 98.3 fL 12/11/2022 5:39 AM [facility] MCH 29.1 26.7 - 34.0 pg 12/11/2022 5:39 AM [facility] MCHC 31.7 30.8 - 35.9 g/dL 12/11/2022 5:39 AM [facility] RDW-SD 54.1(H) 36.0 - 50.0 fL 12/11/2022 5:39 AM [facility] RDW-CV 15.9(H) 11.2 - 14.8 % 12/11/2022 5:39 AM [facility] Platelet Count 236 150 - 400 10? 3 /uL 12/11/2022 5:39 AM [facility] MPV 11.7 9.4 - 12.9 fL 12/11/2022 5:39 AM [facility] nRBC Absolute 0.00 0 10? 3 /uL 12/11/2022 5:39 AM [facility] nRBC Auto 0.0 0 /100 WBC 12/11/2022 5:39 AM [facility] Neutrophils % 46.4 35.0 - 70.0 % 12/11/2022 5:39 AM [facility] Lymphocytes % 37.0 20.0 - 43.0 % 12/11/2022 5:39 AM [facility] Monocytes % 11.3 5.0 - 13.0 % 12/11/2022 5:39 AM [facility] Eosinophils % 4.7 0.0 - 6.0 % 12/11/2022 5:39 AM [facility] Basophil % 0.3 0.0 - 2.0 % 12/11/2022 5:39 AM [facility] Neutrophils Absolute 3.33 1.60 - 7.00 10? 3 /uL 12/11/2022 5:39 AM [facility] Lymphocyte Absolute 2.66 1.10 - 3.90 10? 3 /uL 12/11/2022 5:39 AM [facility] Monocytes Absolute 0.81 0.26 - 1.07 10? 3 /uL 12/11/2022 5:39 AM [facility] Eosinophils Absolute 0.34 0.00 - 0.47 10? 3 /uL 12/11/2022 5:39 AM [facility] Basophils Absolute 0.02 0.00 - 0.08 10? 3 /uL 12/11/2022 5:39 AM [facility] Immature Granulocytes % 0.3 0.0 - 1.0 % 12/11/2022 5:39 AM [facility] Immature Granulocytes Absolute 0.02 12/11/2022 5:39 AM [facility] Blood BLOOD SPECIMEN / Unknown Lab Venipuncture / Unknown 12/11/2022 4:02 AM CDT 12/11/2022 5:15 AM CDT Neville Hewitt III, MD LAB - HEMATOLOGY ORDERABLES [facility] [address] [place] [address], [facility] [phone] * GLUCOSE - POINT OF CARE (12/11/2022 12:55 AM CDT) Glucose WB/POC 114 70 - 115 mg/dL 12/11/2022 3:04 AM CDT [facility] Specimen Type Arterial 12/11/2022 3:04 AM CDT [facility] Blood BLOOD SPECIMEN / Unknown 12/11/2022 12:55 AM CDT 12/11/2022 3:04 AM CDT Dina Terlingua DO LAB - POINT OF CARE ORDERABLES [address] [address], [place] [phone] * GLUCOSE - POINT OF CARE (12/10/2022 8:30 PM CDT) Glucose WB/POC 103 70 - 115 mg/dL 12/10/2022 8:35 PM CDT [facility] Specimen Type Arterial 12/10/2022 8:35 PM CDT [facility] Blood BLOOD SPECIMEN / Unknown 12/10/2022 8:30 PM CDT 12/10/2022 8:35 PM CDT Dina Terlingua DO LAB - POINT OF CARE ORDERABLES Performing Organization Address City/[facility]/ZIP Co de Phone Number [address] [address], [place] [phone] * GLUCOSE - POINT OF CARE (12/10/2022 4:27 PM CDT) Glucose WB/POC 91 70 - 115 mg/dL 12/10/2022 4:32 PM CDT [facility] Specimen Type Cap Fingerstick 2022 4:32 PM CDT [facility] Blood BLOOD SPECIMEN / Unknown 12/10/2022 4:27 PM CDT 12/10/2022 4:32 PM CDT Dina Terlingua DO LAB - POINT OF CARE ORDERABLES [address] [address], [place] [phone] * GASTROSTOMY TUBE, CHANGE / REPOSITION (12/10/2022 1:11 PM CDT) Narrative [facility] [employer] - 12/10/2022 1:11 PM CDT Marcella [...] Fellow Division of Gastroenterology and Hepatology [facility] [employer] Dina Pritchard DO GI PROCEDURE ORDERAB LES [facility] [employer] * GLUCOSE - POINT OF CARE (12/10/2022 8:35 AM CDT) Glucose WB/POC 92 70 - 115 mg/dL 12/10/2022 8:45 AM CDT [facility] Specimen Type Cap Fingerstick 2022 8:45 AM CDT [facility] Blood BLOOD SPECIMEN / Unknown 12/10/2022 8:35 AM CDT 12/10/2022 8:45 AM CDT Dina Pritchard DO LAB - POINT OF CARE ORDERABLES [facility] [address] [place] [address], [facility] [phone] * GLUCOSE - POINT OF CARE (12/10/2022 4:33 AM CDT) Glucose WB/POC 86 70 - 115 mg/dL 12/10/2022 4:38 AM CDT [facility] Specimen Type Cap Fingerstick 2022 4:38 AM CDT [facility] Blood BLOOD SPECIMEN / Unknown 12/10/2022 4:33 AM CDT 12/10/2022 4:38 AM CDT Dina Pritchard DO LAB - POINT OF CARE ORDERABLES [facility] [address] [place] [address], [facility] [phone] * MAGNESIUM BLOOD (12/10/2022 3:44 AM CDT) Magnesium 1.7 1.6 - 2.6 mg/dL 12/10/2022 4:17 AM T [facility] Blood BLOOD SPECIMEN / Unknown Venipuncture / Unknown 12/10/2022 3:44 AM CDT 12/10/2022 4:04 AM CDT Neville Hewitt III, MD LAB - CHEMISTRY ORDERABLES [facility] [address] [place] [address], [place] [phone] * (ABNORMAL) RENAL FUNCTION PANEL (12/10/2022 3:44 AM CDT) BUN 15 7 - 26 mg/dL 12/10/2022 4:17 AM T [facility] Creatinine 0.50(L) 0.71 - 1.16 mg/dL 12/10/2022 4:17 AM T [facility] Sodium 139 136 - 145 mmol/L 12/10/2022 4:17 AM [facility] Potassium 4.8(H) 3.5 - 4.5 mmol/L 12/10/2022 4:17 AM [facility] Chloride 104 98 - 107 mmol/L 12/10/2022 4:17 AM [facility] CO2 28 22 - 29 mmol/L 12/10/2022 4:17 AM [facility] Glucose 88 70 - 115 mg/dL 12/10/2022 4:17 AM [facility] Albumin 2.6(L) 3.4 - 5.0 g/dL 12/10/2022 4:17 AM [facility] Calcium 10.4(H) 8.4 - 10.2 mg/dL 12/10/2022 4:17 AM [facility] Phosphorus 2.9 2.8 - 5.1 mg/dL 12/10/2022 4:17 AM [facility] Anion Gap 12 8 - 18 12/10/2022 4:17 AM [facility] BUN/Creatinine Ratio 30(H) 7 - 23 12/10/2022 4:17 AM [facility] Osmolality Calculated 288 270 - 300 mOsm/kg 12/10/2022 4:17 AM [facility] eGFR by CKD-EPI >90 >=90 mL/min/1.7 3 m2 12/10/2022 4:17 AM [facility] Blood BLOOD SPECIMEN / Unknown Venipuncture / Unknown 12/10/2022 3:44 AM CDT 12/10/2022 4:04 AM T Neville Hewitt III, MD LAB - CHEMISTRY ORDERABLES Performing Organization Address [facility] Co de Phone Number [facility] [address] [place] [phone] [phone] * (ABNORMAL) CBC W AUTO DIFFERENTIAL (12/10/2022 3:44 AM CDT) WBC 6.9 3.5 - 10.5 10? 3 /uL 12/10/2022 4:10 AM [facility] RBC 4.32 4.30 - 5.70 10? 6 /uL 12/10/2022 4:10 AM [facility] Hemoglobin 13.0 12.0 - 17.6 g/dL 12/10/2022 4:10 AM [facility] Hematocrit 39.9 35.2 - 51.7 % 12/10/2022 4:10 AM [facility] MCV 92.4 80.7 - 98.3 fL 12/10/2022 4:10 AM [facility] MCH 30.1 26.7 - 34.0 pg 12/10/2022 4:10 AM [facility] MCHC 32.6 30.8 - 35.9 g/dL 12/10/2022 4:10 AM [facility] RDW-SD 54.1(H) 36.0 - 50.0 fL 12/10/2022 4:10 AM [facility] RDW-CV 15.9(H) 11.2 - 14.8 % 12/10/2022 4:10 AM [facility] Platelet Count 266 150 - 400 10? 3 /uL 12/10/2022 4:10 AM [facility] MPV 11.1 9.4 - 12.9 fL 12/10/2022 4:10 AM [facility] Immature Platelet Fraction 5.8 1.1 - 6.2 % 12/10/2022 4:10 AM [facility] nRBC Absolute 0.00 0 10? 3 /uL 12/10/2022 4:10 AM [facility] nRBC Auto 0.0 0 /100 WBC 12/10/2022 4:10 AM [facility] Neutrophils % 48.0 35.0 - 70.0 % 12/10/2022 4:10 AM [facility] Lymphocytes % 37.3 20.0 - 43.0 % 12/10/2022 4:10 AM [facility] Monocytes % 9.7 5.0 - 13.0 % 12/10/2022 4:10 AM [facility] Eosinophils % 4.4 0.0 - 6.0 % 12/10/2022 4:10 AM [facility] Basophil % 0.3 0.0 - 2.0 % 12/10/2022 4:10 AM [facility] Neutrophils Absolute 3.31 1.60 - 7.00 10? 3 /uL 12/10/2022 4:10 AM CDT [facility] Lymphocyte Absolute 2.57 1.10 - 3.90 10? 3 /uL 12/10/2022 4:10 AM CDT [facility] Monocytes Absolute 0.67 0.26 - 1.07 10? 3 /uL 12/10/2022 4:10 AM CDT [facility] Eosinophils Absolute 0.30 0.00 - 0.47 10? 3 /uL 12/10/2022 4:10 AM CDT [facility] Basophils Absolute 0.02 0.00 - 0.08 10? 3 /uL 12/10/2022 4:10 AM T [facility] Immature Granulocytes % 0.3 0.0 - 1.0 % 12/10/2022 4:10 AM T [facility] Immature Granulocytes Absolute 0.02 12/10/2022 4:10 AM T [facility] Blood BLOOD SPECIMEN / Unknown Venipuncture / Unknown 12/10/2022 3:44 AM CDT 12/10/2022 3:59 AM CDT Neville Hewitt III, MD LAB - HEMATOLOGY ORDERABLES [address] [address], [place] [phone] * (ABNORMAL) GLUCOSE - POINT OF CARE (12/10/2022 12:34 AM CDT) Glucose WB/POC 120(H) 70 - 115 mg/dL 12/12/2022 6:12 PM CDT [facility] Specimen Type Cap Fingerstick 2022 6:12 PM CDT [facility] Blood BLOOD SPECIMEN / Unknown 12/10/2022 12:34 AM CDT 12/12/2022 6:12 PM CDT Dina Pritchard DO LAB - POINT OF CARE ORDERABLES [address] [address], [place] [phone] * GLUCOSE - POINT OF CARE (12/09/2022 8:04 PM CDT) Glucose WB/POC 115 70 - 115 mg/dL 12/09/2022 8:09 PM CDT [facility] Specimen Type Cap Fingerstick 2022 8:09 PM CDT [facility] Blood BLOOD SPECIMEN / Unknown 12/09/2022 8:04 PM CDT 12/09/2022 8:09 PM CDT Dina Terlingua DO LAB - POINT OF CARE ORDERABLES [facility] [address] [place] [address], [place] [phone] * GLUCOSE - POINT OF CARE (12/09/2022 4:20 PM CDT) Glucose WB/POC 89 70 - 115 mg/dL 12/09/2022 4:24 PM CDT [facility] Specimen Type Cap Fingerstick 2022 4:24 PM CDT [facility] Blood BLOOD SPECIMEN / Unknown 12/09/2022 4:20 PM CDT 12/09/2022 4:24 PM CDT Dina Terlingua DO LAB - POINT OF CARE ORDERABLES Performing Organization Address City/[facility]/ZIP Co de Phone Number [facility] [address] [place] [address], [place] [phone] * GLUCOSE - POINT OF CARE (12/09/2022 12:52 PM CDT) Glucose WB/POC 74 70 - 115 mg/dL 12/09/2022 12:57 PM CDT [facility] Specimen Type Cap Fingerstick 2022 12:57 PM CDT [facility] Blood BLOOD SPECIMEN / Unknown 12/09/2022 12:52 PM CDT 12/09/2022 12:57 PM CDT Dina Terlingua DO LAB - POINT OF CARE ORDERABLES [facility] [address] [place] [address], [facility] [phone] * PT-INR [facility] (12/09/2022 12:11 PM CDT) [facility] PT 14.3 12.1 - 14.8 Seconds 12/09/2022 12:55 PM CDT [facility] INR 1.1 See Comment 12/09/2022 12:55 PM CDT [facility] Comment:The suggested therap eutic range for standard coumadin (warfarin) therapy is an INR of 2.0-3.0. For high-risk patients (Mechanical Mitral Valve Prosthesis, etc.), the suggested prophylactic therapeutic range is an INR of 2.5-3.5. Blood BLOOD SPECIMEN / Unknown Lab Venipuncture / Unknown 12/09/2022 12:11 PM CDT 12/09/2022 12:14 PM CDT Gaurav Leroy PA-C LAB - COAGULATIO N ORDERABLES Performing Organization Address City/[facility]/ZIP Co de Phone Number [address] [address], [facility] [phone] * GLUCOSE - POINT OF CARE (12/09/2022 7:59 AM CDT) [facility] Glucose WB/POC 88 70 - 115 mg/dL 12/09/2022 8:04 AM CDT [facility] Specimen Type Cap Fingerstick 2022 8:04 AM CDT [facility] Blood BLOOD SPECIMEN / Unknown 12/09/2022 7:59 AM CDT 12/09/2022 8:03 AM CDT Dina Pritchard DO LAB - POINT OF CARE ORDERABLES [facility] [address] [place] [address], [place] [phone] * GLUCOSE - POINT OF CARE (12/09/2022 6:02 AM CDT) [facility] Glucose WB/POC 102 70 - 115 mg/dL 12/09/2022 6:07 AM CDT [facility] Specimen Type Arterial 12/09/2022 6:07 AM [facility] Blood BLOOD SPECIMEN / Unknown 12/09/2022 6:02 AM CDT 12/09/2022 6:07 AM CDT Dina Pritchard DO LAB - POINT OF CARE ORDERABLES Performing Organization Address City/[facility]/ZIP Co de Phone Number [address] [address], [facility] [phone] * MAGNESIUM BLOOD (12/09/2022 5:52 AM CDT) [facility] Magnesium 1.8 1.6 - 2.6 mg/dL 12/09/2022 6:43 AM [facility] Blood BLOOD SPECIMEN / Unknown Lab Venipuncture / Unknown 12/09/2022 5:52 AM CDT 12/09/2022 6:26 AM CDT Neville Hewitt III, MD LAB - CHEMISTRY ORDERABLES Performing Organization Address City/[facility]/ZIP Co de Phone Number [address] [address], [facility] [phone] * (ABNORMAL) RENAL FUNCTION PANEL (12/09/2022 5:52 AM CDT) [facility] BUN 13 7 - 26 mg/dL 12/09/2022 6:43 AM [facility] Creatinine 0.47(L) 0.71 - 1.16 mg/dL 12/09/2022 6:43 AM [facility] Sodium 138 136 - 145 mmol/L 12/09/2022 6:43 AM [facility] Potassium 4.5 3.5 - 4.5 mmol/L 12/09/2022 6:43 AM [facility] Chloride 106 98 - 107 mmol/L 12/09/2022 6:43 AM [facility] CO2 27 22 - 29 mmol/L 12/09/2022 6:43 AM [facility] Glucose 112 70 - 115 mg/dL 12/09/2022 6:43 AM [facility] Albumin 2.3(L) 3.4 - 5.0 g/dL 12/09/2022 6:43 AM [facility] Calcium 10.1 8.4 - 10.2 mg/dL 12/09/2022 6:43 AM [facility] Phosphorus 2.8 2.8 - 5.1 mg/dL 12/09/2022 6:43 AM [facility] Anion Gap 10 8 - 18 12/09/2022 6:43 AM [facility] BUN/Creatinine Ratio 28(H) 7 - 23 12/09/2022 6:43 AM [facility] Osmolality Calculated 287 270 - 300 mOsm/kg 12/09/2022 6:43 AM [facility] eGFR by CKD-EPI >90 >=90 mL/min/1.7 3 m2 12/09/2022 6:43 AM [facility] Blood BLOOD SPECIMEN / Unknown Lab Venipuncture / Unknown 12/09/2022 5:52 AM CDT 12/09/2022 6:26 AM CDT Neville Hewitt III, MD LAB - CHEMISTRY ORDERABLES Performing Organization Address [facility]/State/[facility] Co de Phone Number [facility] [address] [place] [address], [facility] [phone] * (ABNORMAL) CBC W AUTO DIFFERENTIAL (12/09/2022 5:52 AM CDT) WBC 7.1 3.5 - 10.5 10? 3 /uL 12/09/2022 6:32 AM [facility] RBC 4.05(L) 4.30 - 5.70 10? 6 /uL 12/09/2022 6:32 AM [facility] Hemoglobin 12.0 12.0 - 17.6 g/dL 12/09/2022 6:32 AM [facility] Hematocrit 36.5 35.2 - 51.7 % 12/09/2022 6:32 AM [facility] MCV 90.1 80.7 - 98.3 fL 12/09/2022 6:32 AM [facility] MCH 29.6 26.7 - 34.0 pg 12/09/2022 6:32 AM [facility] MCHC 32.9 30.8 - 35.9 g/dL 12/09/2022 6:32 AM [facility] RDW-SD 52.1(H) 36.0 - 50.0 fL 12/09/2022 6:32 AM [facility] RDW-CV 15.9(H) 11.2 - 14.8 % 12/09/2022 6:32 AM [facility] Platelet Count 295 150 - 400 10? 3 /uL 12/09/2022 6:32 AM [facility] MPV 10.8 9.4 - 12.9 fL 12/09/2022 6:32 AM [facility] nRBC Absolute 0.00 0 10? 3 /uL 12/09/2022 6:32 AM [facility] nRBC Auto 0.0 0 /100 WBC 12/09/2022 6:32 AM [facility] Neutrophils % 50.1 35.0 - 70.0 % 12/09/2022 6:32 AM [facility] Lymphocytes % 34.6 20.0 - 43.0 % 12/09/2022 6:32 AM [facility] Monocytes % 10.3 5.0 - 13.0 % 12/09/2022 6:32 AM [facility] Eosinophils % 4.1 0.0 - 6.0 % 12/09/2022 6:32 AM [facility] Basophil % 0.6 0.0 - 2.0 % 12/09/2022 6:32 AM [facility] Neutrophils Absolute 3.54 1.60 - 7.00 10? 3 /uL 12/09/2022 6:32 AM [facility] Lymphocyte Absolute 2.44 1.10 - 3.90 10? 3 /uL 12/09/2022 6:32 AM [facility] Monocytes Absolute 0.73 0.26 - 1.07 10? 3 /uL 12/09/2022 6:32 AM CDT [facility] Eosinophils Absolute 0.29 0.00 - 0.47 10? 3 /uL 12/09/2022 6:32 AM CDT [facility] Basophils Absolute 0.04 0.00 - 0.08 10? 3 /uL 12/09/2022 6:32 AM CDT [facility] Immature Granulocytes % 0.3 0.0 - 1.0 % 12/09/2022 6:32 AM CDT [facility] Immature Granulocytes Absolute 0.02 12/09/2022 6:32 AM CDT [facility] Blood BLOOD SPECIMEN / Unknown Lab Venipuncture / Unknown 12/09/2022 5:52 AM CDT 12/09/2022 6:11 AM CDT Neville Hewitt III, MD LAB - HEMATOLOGY ORDERABLES [facility] [address] [place] [address], [place] [phone] * (ABNORMAL) GLUCOSE - POINT OF CARE (12/08/2022 6:36 PM CDT) Glucose WB/POC 121(H) 70 - 115 mg/dL 12/08/2022 6:41 PM CDT [facility] Specimen Type Cap Fingerstick 2022 6:41 PM CDT [facility] Blood BLOOD SPECIMEN / Unknown 12/08/2022 6:36 PM CDT 12/08/2022 6:41 PM CDT Dina Pritchard DO LAB - POINT OF CARE ORDERABLES [facility] [address] [place] [address], [place] [phone] * GLUCOSE - POINT OF CARE (12/08/2022 4:10 PM CDT) Glucose WB/POC 107 70 - 115 mg/dL 12/08/2022 4:15 PM CDT [facility] Specimen Type Cap Fingerstick 2022 4:15 PM CDT [facility] Blood BLOOD SPECIMEN / Unknown 12/08/2022 4:10 PM CDT 12/08/2022 4:14 PM CDT Dina Pritchard DO LAB - POINT OF CARE ORDERABLES [facility] [address] [place] [address], [place] [phone] * (ABNORMAL) GLUCOSE - POINT OF CARE (12/08/2022 7:51 AM CDT) Glucose WB/POC 118(H) 70 - 115 mg/dL 12/08/2022 8:01 AM CDT [facility] Specimen Type Cap Fingerstick 2022 8:01 AM CDT [facility] Blood BLOOD SPECIMEN / Unknown 12/08/2022 7:51 AM CDT 12/08/2022 8:01 AM CDT Stephen Witt MD LAB - POINT OF CARE ORDERABLES Performing Organization Address City/[facility]/ZIP Co de Phone Number [address] [address], [place] [phone] * (ABNORMAL) GLUCOSE - POINT OF CARE (12/08/2022 7:05 AM CDT) Glucose WB/POC 123(H) 70 - 115 mg/dL 12/08/2022 7:10 AM CDT [facility] Specimen Type Arterial 12/08/2022 7:10 AM CDT [facility] Blood BLOOD SPECIMEN / Unknown 12/08/2022 7:05 AM CDT 12/08/2022 7:10 AM CDT Stephen Witt MD LAB - POINT OF CARE ORDERABLES [address] [address], [place] [phone] * MAGNESIUM BLOOD (12/08/2022 4:28 AM CDT) Magnesium 1.9 1.6 - 2.6 mg/dL 12/08/2022 6:18 AM [facility] Blood BLOOD SPECIMEN / Unknown Lab Venipuncture / Unknown 12/08/2022 4:28 AM CDT 12/08/2022 5:36 AM CDT Neville Hewitt III, MD LAB - CHEMISTRY ORDERABLES [facility] [address] [place] [address], [facility] [phone] * (ABNORMAL) RENAL FUNCTION PANEL (12/08/2022 4:28 AM CDT) Pathologist [facility] BUN 16 7 - 26 mg/dL 12/08/2022 6:18 AM [facility] Creatinine 0.49(L) 0.71 - 1.16 mg/dL 12/08/2022 6:18 AM [facility] Sodium 137 136 - 145 mmol/L 12/08/2022 6:18 AM [facility] Potassium 4.6(H) 3.5 - 4.5 mmol/L 12/08/2022 6:18 AM [facility] Chloride 104 98 - 107 mmol/L 12/08/2022 6:18 AM [facility] CO2 26 22 - 29 mmol/L 12/08/2022 6:18 AM [facility] Glucose 105 70 - 115 mg/dL 12/08/2022 6:18 AM [facility] Albumin 2.5(L) 3.4 - 5.0 g/dL 12/08/2022 6:18 AM [facility] Calcium 10.6(H) 8.4 - 10.2 mg/dL 12/08/2022 6:18 AM [facility] Phosphorus 2.8 2.8 - 5.1 mg/dL 12/08/2022 6:18 AM [facility] Anion Gap 12 8 - 18 12/08/2022 6:18 AM [facility] BUN/Creatinine Ratio 33(H) 7 - 23 12/08/2022 6:18 AM [facility] Osmolality Calculated 286 270 - 300 mOsm/kg 12/08/2022 6:18 AM [facility] eGFR by CKD-EPI >90 >=90 mL/min/1.7 3 m2 12/08/2022 6:18 AM [facility] Blood BLOOD SPECIMEN / Unknown Lab Venipuncture / Unknown 12/08/2022 4:28 AM CDT 12/08/2022 5:36 AM CDT Neville Hewitt III, MD LAB - CHEMISTRY ORDERABLES [facility] [address] [place] [address], [facility] [phone] * (ABNORMAL) CBC W AUTO DIFFERENTIAL (12/08/2022 4:28 AM CDT) WBC 8.7 3.5 - 10.5 10? 3 /uL 12/08/2022 5:44 AM [facility] RBC 3.94(L) 4.30 - 5.70 10? 6 /uL 12/08/2022 5:44 AM [facility] Hemoglobin 11.8(L) 12.0 - 17.6 g/dL 12/08/2022 5:44 AM [facility] Hematocrit 36.7 35.2 - 51.7 % 12/08/2022 5:44 AM [facility] MCV 93.1 80.7 - 98.3 fL 12/08/2022 5:44 AM [facility] MCH 29.9 26.7 - 34.0 pg 12/08/2022 5:44 AM [facility] MCHC 32.2 30.8 - 35.9 g/dL 12/08/2022 5:44 AM [facility] RDW-SD 54.2(H) 36.0 - 50.0 fL 12/08/2022 5:44 AM [facility] RDW-CV 15.9(H) 11.2 - 14.8 % 12/08/2022 5:44 AM [facility] Platelet Count 343 150 - 400 10? 3 /uL 12/08/2022 5:44 AM [facility] MPV 11.5 9.4 - 12.9 fL 12/08/2022 5:44 AM [facility] nRBC Absolute 0.00 0 10? 3 /uL 12/08/2022 5:44 AM [facility] nRBC Auto 0.0 0 /100 WBC 12/08/2022 5:44 AM [facility] Neutrophils % 55.3 35.0 - 70.0 % 12/08/2022 5:44 AM [facility] Lymphocytes % 29.8 20.0 - 43.0 % 12/08/2022 5:44 AM [facility] Monocytes % 11.3 5.0 - 13.0 % 12/08/2022 5:44 AM [facility] Eosinophils % 2.9 0.0 - 6.0 % 12/08/2022 5:44 AM [facility] Basophil % 0.5 0.0 - 2.0 % 12/08/2022 5:44 AM [facility] Neutrophils Absolute 4.82 1.60 - 7.00 10? 3 /uL 12/08/2022 5:44 AM [facility] Lymphocyte Absolute 2.59 1.10 - 3.90 10? 3 /uL 12/08/2022 5:44 AM [facility] Monocytes Absolute 0.98 0.26 - 1.07 10? 3 /uL 12/08/2022 5:44 AM [facility] Eosinophils Absolute 0.25 0.00 - 0.47 10? 3 /uL 12/08/2022 5:44 AM [facility] Basophils Absolute 0.04 0.00 - 0.08 10? 3 /uL 12/08/2022 5:44 AM [facility] Immature Granulocytes % 0.2 0.0 - 1.0 % 12/08/2022 5:44 AM [facility] Immature Granulocytes Absolute 0.02 12/08/2022 5:44 AM [facility] Blood BLOOD SPECIMEN / Unknown Lab Venipuncture / Unknown 12/08/2022 4:28 AM CDT 12/08/2022 5:36 AM CDT Neville Hewitt III, MD LAB - HEMATOLOGY ORDERABLES [address] [address], [place] [phone] * GLUCOSE - POINT OF CARE (12/07/2022 6:08 PM CDT) Glucose WB/POC 92 70 - 115 mg/dL 12/08/2022 7:33 PM CDT [facility] Specimen Type Arterial 12/08/2022 7:33 PM CDT [facility] Blood BLOOD SPECIMEN / Unknown 12/07/2022 6:08 PM CDT 12/08/2022 7:33 PM CDT Stephen Witt MD LAB - POINT OF CARE ORDERABLES Performing Organization Address City/[facility]/ZIP Co de Phone Number [address] [address], [place] [phone] * NM GASTRIC EMPTYING (12/07/2022 3:51 PM CDT) Anatomical Region Laterality Modality Abdomen Nuclear Medicine 12/07/2022 2:16 PM CDT Impressions 12/07/2022 4:40 PM CDT Impression: ?? Abnormal delayed gastric emptying with T 1/2 of >120 minutes. Of note, standardized normal values are not established for liquid gastric emptying and may vary per institution protocol. > Dictated by Concha Turner MD ([employer] Operator) 12/07/2022 2:16 PM Sarah Thomason DO have personally reviewed and interpreted this examination/study. > Interpreting Provider: Sarah Mason DO on 12/07/2022 4:40 PM Narrative 12/07/2022 4:40 PM CDT PROCEDURE: ??NM GASTRIC EMPTYING DATE/TIME OF EXAM: ??12/07/2022 2:25 PM CLINICAL INFORMATION: None relevant/not provided if blank. Indication: Z93.1: PEG (percutaneous endoscopic gastrostomy) status ([facility]) Procedure: Gastric Emptying Study History: 62-year-old male [...] Indication: Z93.1: PEG (percutaneous endoscopic gastrostomy) status ([facility]) Procedure: Gastric Emptying Study History: 62-year-old male [...] protocol. > Dictated by Concha Turner MD (Primer Press Operator) 12/07/2022 2:16PM ISarah DO have personally reviewed and interpreted this examination/study. > Interpreting Provider: Sarah Mason DO on 12/07/2022 4:40 PM Ilir Mckenzie MD NM ORDERABLES * MAGNESIUM BLOOD (12/07/2022 2:28 AM CDT) Magnesium 1.8 1.6 - 2.6 mg/dL 12/07/2022 3:19 AM [facility] Blood BLOOD SPECIMEN / Unknown Venipuncture / Unknown 12/07/2022 2:28 AM CDT 12/07/2022 2:42 AM CDT Neville Hewitt III, MD LAB - CHEMISTRY ORDERABLES Performing Organization Address [facility]/State/[facility] Co de Phone Number [facility] [address] [place] [phone], [facility] [phone] * (ABNORMAL) RENAL FUNCTION PANEL (12/07/2022 2:28 AM CDT) BUN 18 7 - 26 mg/dL 12/07/2022 3:19 AM [facility] Creatinine 0.47(L) 0.71 - 1.16 mg/dL 12/07/2022 3:19 AM [facility] Sodium 137 136 - 145 mmol/L 12/07/2022 3:19 AM [facility] Potassium 4.7(H) 3.5 - 4.5 mmol/L 12/07/2022 3:19 AM [facility] Chloride 103 98 - 107 mmol/L 12/07/2022 3:19 AM [facility] CO2 27 22 - 29 mmol/L 12/07/2022 3:19 AM [facility] Glucose 95 70 - 115 mg/dL 12/07/2022 3:19 AM [facility] Albumin 2.4(L) 3.4 - 5.0 g/dL 12/07/2022 3:19 AM [facility] Calcium 10.6(H) 8.4 - 10.2 mg/dL 12/07/2022 3:19 AM [facility] Phosphorus 3.0 2.8 - 5.1 mg/dL 12/07/2022 3:19 AM [facility] Anion Gap 12 8 - 18 12/07/2022 3:19 AM [facility] BUN/Creatinine Ratio 38(H) 7 - 23 12/07/2022 3:19 AM [facility] Osmolality Calculated 286 270 - 300 mOsm/kg 12/07/2022 3:19 AM [facility] eGFR by CKD-EPI >90 >=90 mL/min/1.7 3 m2 12/07/2022 3:19 AM [facility] Blood BLOOD SPECIMEN / Unknown Venipuncture / Unknown 12/07/2022 2:28 AM CDT 12/07/2022 2:42 AM CDT Neville Hewitt III, MD LAB - CHEMISTRY ORDERABLES Performing Organization Address [facility] Co de Phone Number [address] [phone] [phone] * (ABNORMAL) CBC W AUTO DIFFERENTIAL (12/07/2022 2:28 AM CDT) WBC 10.4 3.5 - 10.5 10? 3 /uL 12/07/2022 3:03 AM [facility] RBC 3.73(L) 4.30 - 5.70 10? 6 /uL 12/07/2022 3:03 AM [facility] Hemoglobin 11.2(L) 12.0 - 17.6 g/dL 12/07/2022 3:03 AM [facility] Hematocrit 34.5(L) 35.2 - 51.7 % 12/07/2022 3:03 AM [facility] MCV 92.5 80.7 - 98.3 fL 12/07/2022 3:03 AM [facility] MCH 30.0 26.7 - 34.0 pg 12/07/2022 3:03 AM [facility] MCHC 32.5 30.8 - 35.9 g/dL 12/07/2022 3:03 AM [facility] RDW-SD 54.0(H) 36.0 - 50.0 fL 12/07/2022 3:03 AM [facility] RDW-CV 16.0(H) 11.2 - 14.8 % 12/07/2022 3:03 AM [facility] Platelet Count 426(H) 150 - 400 10? 3 /uL 12/07/2022 3:03 AM [facility] MPV 10.6 9.4 - 12.9 fL 12/07/2022 3:03 AM [facility] nRBC Absolute 0.00 0 10? 3 /uL 12/07/2022 3:03 AM [facility] nRBC Auto 0.0 0 /100 WBC 12/07/2022 3:03 AM [facility] Neutrophils % 55.8 35.0 - 70.0 % 12/07/2022 3:03 AM [facility] Lymphocytes % 28.0 20.0 - 43.0 % 12/07/2022 3:03 AM [facility] Monocytes % 11.6 5.0 - 13.0 % 12/07/2022 3:03 AM [facility] Eosinophils % 3.9 0.0 - 6.0 % 12/07/2022 3:03 AM [facility] Basophil % 0.2 0.0 - 2.0 % 12/07/2022 3:03 AM [facility] Neutrophils Absolute 5.82 1.60 - 7.00 10? 3 /uL 12/07/2022 3:03 AM [facility] Lymphocyte Absolute 2.92 1.10 - 3.90 10? 3 /uL 12/07/2022 3:03 AM [facility] Monocytes Absolute 1.21(H) 0.26 - 1.07 10? 3 /uL 12/07/2022 3:03 AM [facility] Eosinophils Absolute 0.41 0.00 - 0.47 10? 3 /uL 12/07/2022 3:03 AM [facility] Basophils Absolute 0.02 0.00 - 0.08 10? 3 /uL 12/07/2022 3:03 AM [facility] Immature Granulocytes % 0.5 0.0 - 1.0 % 12/07/2022 3:03 AM CDT [facility] Immature Granulocytes Absolute 0.05 12/07/2022 3:03 AM CDT [facility] Blood BLOOD SPECIMEN / Unknown Venipuncture / Unknown 12/07/2022 2:28 AM CDT 12/07/2022 2:42 AM CDT Neville Hewitt III, MD LAB - HEMATOLOGY ORDERABLES Performing Organization Address City/[facility]/ZIP Co de Phone Number [address] [address], [facility] [phone] * MAGNESIUM BLOOD (12/06/2022 3:10 AM CDT) Pathologist [facility] Magnesium 2.0 1.6 - 2.6 mg/dL 12/06/2022 3:55 AM CDT [facility] Blood BLOOD SPECIMEN / Unknown Venipuncture / Unknown 12/06/2022 3:10 AM CDT 12/06/2022 3:22 AM CDT Neville Hewitt III, MD LAB - CHEMISTRY ORDERABLES Performing Organization Address City/[facility]/ZIP Co de Phone Number [address] [phone], [facility] [phone] * (ABNORMAL) RENAL FUNCTION PANEL (12/06/2022 3:10 AM CDT) BUN 16 7 - 26 mg/dL 12/06/2022 3:54 AM CDT [facility] Creatinine 0.38(L) 0.71 - 1.16 mg/dL 12/06/2022 3:54 AM T [facility] Sodium 139 136 - 145 mmol/L 12/06/2022 3:54 AM T [facility] Potassium 4.8(H) 3.5 - 4.5 mmol/L 12/06/2022 3:54 AM T [facility] Chloride 105 98 - 107 mmol/L 12/06/2022 3:54 AM T [facility] CO2 26 22 - 29 mmol/L 12/06/2022 3:54 AM [facility] Glucose 117(H) 70 - 115 mg/dL 12/06/2022 3:54 AM [facility] Albumin 2.3(L) 3.4 - 5.0 g/dL 12/06/2022 3:54 AM [facility] Calcium 10.2 8.4 - 10.2 mg/dL 12/06/2022 3:54 AM [facility] Phosphorus 2.8 2.8 - 5.1 mg/dL 12/06/2022 3:54 AM [facility] Anion Gap 13 8 - 18 12/06/2022 3:54 AM [facility] BUN/Creatinine Ratio 42(H) 7 - 23 12/06/2022 3:54 AM [facility] Osmolality Calculated 290 270 - 300 mOsm/kg 12/06/2022 3:54 AM [facility] eGFR by CKD-EPI >90 >=90 mL/min/1.7 3 m2 12/06/2022 3:54 AM [facility] Blood BLOOD SPECIMEN / Unknown Venipuncture / Unknown 12/06/2022 3:10 AM CDT 12/06/2022 3:22 AM T Neville Hewitt III, MD LAB - CHEMISTRY ORDERABLES Performing Organization Address [facility]/State/[facility] Co de Phone Number [facility] [address] [place] [phone], [facility] [phone] * (ABNORMAL) CBC W AUTO DIFFERENTIAL (12/06/2022 3:10 AM CDT) WBC 7.3 3.5 - 10.5 10? 3 /uL 12/06/2022 3:29 AM [facility] RBC 3.78(L) 4.30 - 5.70 10? 6 /uL 12/06/2022 3:29 AM [facility] Hemoglobin 11.1(L) 12.0 - 17.6 g/dL 12/06/2022 3:29 AM [facility] Hematocrit 34.7(L) 35.2 - 51.7 % 12/06/2022 3:29 AM [facility] MCV 91.8 80.7 - 98.3 fL 12/06/2022 3:29 AM [facility] MCH 29.4 26.7 - 34.0 pg 12/06/2022 3:29 AM [facility] MCHC 32.0 30.8 - 35.9 g/dL 12/06/2022 3:29 AM [facility] RDW-SD 54.2(H) 36.0 - 50.0 fL 12/06/2022 3:29 AM [facility] RDW-CV 16.0(H) 11.2 - 14.8 % 12/06/2022 3:29 AM [facility] Platelet Count 435(H) 150 - 400 10? 3 /uL 12/06/2022 3:29 AM [facility] MPV 10.5 9.4 - 12.9 fL 12/06/2022 3:29 AM [facility] nRBC Absolute 0.00 0 10? 3 /uL 12/06/2022 3:29 AM [facility] nRBC Auto 0.0 0 /100 WBC 12/06/2022 3:29 AM [facility] Neutrophils % 53.3 35.0 - 70.0 % 12/06/2022 3:29 AM [facility] Lymphocytes % 29.4 20.0 - 43.0 % 12/06/2022 3:29 AM [facility] Monocytes % 10.2 5.0 - 13.0 % 12/06/2022 3:29 AM [facility] Eosinophils % 6.2(H) 0.0 - 6.0 % 12/06/2022 3:29 AM [facility] Basophil % 0.5 0.0 - 2.0 % 12/06/2022 3:29 AM [facility] Neutrophils Absolute 3.89 1.60 - 7.00 10? 3 /uL 12/06/2022 3:29 AM [facility] Lymphocyte Absolute 2.14 1.10 - 3.90 10? 3 /uL 12/06/2022 3:29 AM [facility] Monocytes Absolute 0.74 0.26 - 1.07 10? 3 /uL 12/06/2022 3:29 AM CDT [facility] Eosinophils Absolute 0.45 0.00 - 0.47 10? 3 /uL 12/06/2022 3:29 AM CDT [facility] Basophils Absolute 0.04 0.00 - 0.08 10? 3 /uL 12/06/2022 3:29 AM CDT [facility] Immature Granulocytes % 0.4 0.0 - 1.0 % 12/06/2022 3:29 AM CDT [facility] Immature Granulocytes Absolute 0.03 12/06/2022 3:29 AM CDT [facility] Blood BLOOD SPECIMEN / Unknown Venipuncture / Unknown 12/06/2022 3:10 AM CDT 12/06/2022 3:22 AM CDT Neville Hewitt III, MD LAB - HEMATOLOGY ORDERABLES Performing Organization Address City/[facility]/ZIP Co de Phone Number [address] [address], [facility] [phone] * MAGNESIUM BLOOD (12/05/2022 3:18 AM CDT) Magnesium 1.9 1.6 - 2.6 mg/dL 12/05/2022 3:58 AM T [facility] Blood BLOOD SPECIMEN / Unknown Venipuncture / Unknown 12/05/2022 3:18 AM CDT 12/05/2022 3:28 AM CDT Neville Hewitt III, MD LAB - CHEMISTRY ORDERABLES [address] [address], [facility] [phone] * (ABNORMAL) RENAL FUNCTION PANEL (12/05/2022 3:18 AM CDT) BUN 16 7 - 26 mg/dL 12/05/2022 3:58 AM CDT [facility] Creatinine 0.43(L) 0.71 - 1.16 mg/dL 12/05/2022 3:58 AM [facility] Sodium 137 136 - 145 mmol/L 12/05/2022 3:58 AM [facility] Potassium 4.5 3.5 - 4.5 mmol/L 12/05/2022 3:58 AM [facility] Chloride 105 98 - 107 mmol/L 12/05/2022 3:58 AM [facility] CO2 26 22 - 29 mmol/L 12/05/2022 3:58 AM [facility] Glucose 131(H) 70 - 115 mg/dL 12/05/2022 3:58 AM [facility] Albumin 2.2(L) 3.4 - 5.0 g/dL 12/05/2022 3:58 AM [facility] Calcium 10.3(H) 8.4 - 10.2 mg/dL 12/05/2022 3:58 AM [facility] Phosphorus 2.7(L) 2.8 - 5.1 mg/dL 12/05/2022 3:58 AM [facility] Anion Gap 11 8 - 18 12/05/2022 3:58 AM [facility] BUN/Creatinine Ratio 37(H) 7 - 23 12/05/2022 3:58 AM [facility] Osmolality Calculated 287 270 - 300 mOsm/kg 12/05/2022 3:58 AM [facility] eGFR by CKD-EPI >90 >=90 mL/min/1.7 3 m2 12/05/2022 3:58 AM [facility] Blood BLOOD SPECIMEN / Unknown Venipuncture / Unknown 12/05/2022 3:18 AM CDT 12/05/2022 3:28 AM CDT Neville Hewitt III, MD LAB - CHEMISTRY ORDERABLES [facility] [address] [place] [phone], [facility] [phone] * (ABNORMAL) CBC W AUTO DIFFERENTIAL (12/05/2022 3:18 AM CDT) WBC 8.5 3.5 - 10.5 10? 3 /uL 12/05/2022 3:33 AM [facility] RBC 3.54(L) 4.30 - 5.70 10? 6 /uL 12/05/2022 3:33 AM [facility] Hemoglobin 10.6(L) 12.0 - 17.6 g/dL 12/05/2022 3:33 AM [facility] Hematocrit 32.3(L) 35.2 - 51.7 % 12/05/2022 3:33 AM [facility] MCV 91.2 80.7 - 98.3 fL 12/05/2022 3:33 AM [facility] MCH 29.9 26.7 - 34.0 pg 12/05/2022 3:33 AM [facility] MCHC 32.8 30.8 - 35.9 g/dL 12/05/2022 3:33 AM [facility] RDW-SD 55.8(H) 36.0 - 50.0 fL 12/05/2022 3:33 AM [facility] RDW-CV 16.6(H) 11.2 - 14.8 % 12/05/2022 3:33 AM [facility] Platelet Count 407(H) 150 - 400 10? 3 /uL 12/05/2022 3:33 AM [facility] MPV 10.5 9.4 - 12.9 fL 12/05/2022 3:33 AM [facility] nRBC Absolute 0.00 0 10? 3 /uL 12/05/2022 3:33 AM [facility] nRBC Auto 0.0 0 /100 WBC 12/05/2022 3:33 AM [facility] Neutrophils % 58.9 35.0 - 70.0 % 12/05/2022 3:33 AM [facility] Lymphocytes % 25.9 20.0 - 43.0 % 12/05/2022 3:33 AM [facility] Monocytes % 9.5 5.0 - 13.0 % 12/05/2022 3:33 AM [facility] Eosinophils % 4.8 0.0 - 6.0 % 12/05/2022 3:33 AM CDT [facility] Basophil % 0.5 0.0 - 2.0 % 12/05/2022 3:33 AM T [facility] Neutrophils Absolute 5.03 1.60 - 7.00 10? 3 /uL 12/05/2022 3:33 AM T [facility] Lymphocyte Absolute 2.21 1.10 - 3.90 10? 3 /uL 12/05/2022 3:33 AM CDT [facility] Monocytes Absolute 0.81 0.26 - 1.07 10? 3 /uL 12/05/2022 3:33 AM T [facility] Eosinophils Absolute 0.41 0.00 - 0.47 10? 3 /uL 12/05/2022 3:33 AM T [facility] Basophils Absolute 0.04 0.00 - 0.08 10? 3 /uL 12/05/2022 3:33 AM [facility] Immature Granulocytes % 0.4 0.0 - 1.0 % 12/05/2022 3:33 AM T [facility] Immature Granulocytes Absolute 0.03 12/05/2022 3:33 AM T [facility] Blood BLOOD SPECIMEN / Unknown Venipuncture / Unknown 12/05/2022 3:18 AM CDT 12/05/2022 3:26 AM CDT Neville Hewitt III, MD LAB - HEMATOLOGY ORDERABLES [address] [phone] [phone] * MAGNESIUM BLOOD (12/04/2022 3:27 AM CDT) Magnesium 2.0 1.6 - 2.6 mg/dL 12/04/2022 4:18 AM CDT [facility] Blood BLOOD SPECIMEN / Unknown Venipuncture / Unknown 12/04/2022 3:27 AM CDT 12/04/2022 3:47 AM CDT Neville Hewitt III, MD LAB - CHEMISTRY ORDERABLES [facility] [address] [place] [address], [facility] [phone] * (ABNORMAL) RENAL FUNCTION PANEL (12/04/2022 3:27 AM T) BUN 18 7 - 26 mg/dL 12/04/2022 4:18 AM [facility] Creatinine 0.52(L) 0.71 - 1.16 mg/dL 12/04/2022 4:18 AM [facility] Sodium 141 136 - 145 mmol/L 12/04/2022 4:18 AM [facility] Potassium 4.9(H) 3.5 - 4.5 mmol/L 12/04/2022 4:18 AM [facility] Chloride 108(H) 98 - 107 mmol/L 12/04/2022 4:18 AM [facility] CO2 27 22 - 29 mmol/L 12/04/2022 4:18 AM [facility] Glucose 116(H) 70 - 115 mg/dL 12/04/2022 4:18 AM [facility] Albumin 2.2(L) 3.4 - 5.0 g/dL 12/04/2022 4:18 AM [facility] Calcium 10.2 8.4 - 10.2 mg/dL 12/04/2022 4:18 AM [facility] Phosphorus 2.8 2.8 - 5.1 mg/dL 12/04/2022 4:18 AM [facility] Anion Gap 11 8 - 18 12/04/2022 4:18 AM [facility] BUN/Creatinine Ratio 35(H) 7 - 23 12/04/2022 4:18 AM [facility] Osmolality Calculated 295 270 - 300 mOsm/kg 12/04/2022 4:18 AM [facility] eGFR by CKD-EPI >90 >=90 mL/min/1.7 3 m2 12/04/2022 4:18 AM [facility] Blood BLOOD SPECIMEN / Unknown Venipuncture / Unknown 12/04/2022 3:27 AM CDT 12/04/2022 3:47 AM CDT Neville Hewitt III, MD LAB - CHEMISTRY ORDERABLES [facility] [address] [place] [phone], [facility] [phone] * (ABNORMAL) CBC W AUTO DIFFERENTIAL (12/04/2022 3:27 AM CDT) WBC 8.6 3.5 - 10.5 10? 3 /uL 12/04/2022 3:57 AM [facility] RBC 3.34(L) 4.30 - 5.70 10? 6 /uL 12/04/2022 3:57 AM [facility] Hemoglobin 10.0(L) 12.0 - 17.6 g/dL 12/04/2022 3:57 AM [facility] Hematocrit 31.2(L) 35.2 - 51.7 % 12/04/2022 3:57 AM [facility] MCV 93.4 80.7 - 98.3 fL 12/04/2022 3:57 AM [facility] MCH 29.9 26.7 - 34.0 pg 12/04/2022 3:57 AM [facility] MCHC 32.1 30.8 - 35.9 g/dL 12/04/2022 3:57 AM [facility] RDW-SD 58.2(H) 36.0 - 50.0 fL 12/04/2022 3:57 AM [facility] RDW-CV 17.3(H) 11.2 - 14.8 % 12/04/2022 3:57 AM [facility] Platelet Count 392 150 - 400 10? 3 /uL 12/04/2022 3:57 AM [facility] MPV 10.9 9.4 - 12.9 fL 12/04/2022 3:57 AM [facility] nRBC Absolute 0.00 0 10? 3 /uL 12/04/2022 3:57 AM [facility] nRBC Auto 0.0 0 /100 WBC 12/04/2022 3:57 AM [facility] Neutrophils % 60.1 35.0 - 70.0 % 12/04/2022 3:57 AM [facility] Lymphocytes % 23.8 20.0 - 43.0 % 12/04/2022 3:57 AM [facility] Monocytes % 11.9 5.0 - 13.0 % 12/04/2022 3:57 AM [facility] Eosinophils % 3.6 0.0 - 6.0 % 12/04/2022 3:57 AM [facility] Basophil % 0.3 0.0 - 2.0 % 12/04/2022 3:57 AM [facility] Neutrophils Absolute 5.15 1.60 - 7.00 10? 3 /uL 12/04/2022 3:57 AM [facility] Lymphocyte Absolute 2.04 1.10 - 3.90 10? 3 /uL 12/04/2022 3:57 AM [facility] Monocytes Absolute 1.02 0.26 - 1.07 10? 3 /uL 12/04/2022 3:57 AM [facility] Eosinophils Absolute 0.31 0.00 - 0.47 10? 3 /uL 12/04/2022 3:57 AM [facility] Basophils Absolute 0.03 0.00 - 0.08 10? 3 /uL 12/04/2022 3:57 AM [facility] Immature Granulocytes % 0.3 0.0 - 1.0 % 12/04/2022 3:57 AM [facility] Immature Granulocytes Absolute 0.03 12/04/2022 3:57 AM [facility] Blood BLOOD SPECIMEN / Unknown Venipuncture / Unknown 12/04/2022 3:27 AM CDT 12/04/2022 3:46 AM CDT Neville Hewitt III, MD LAB - HEMATOLOGY ORDERABLES [facility] [address] [place] [phone], [facility] [phone] * (ABNORMAL) GLUCOSE - POINT OF CARE (12/03/2022 3:58 PM CDT) Glucose WB/POC 140(H) 70 - 115 mg/dL 12/03/2022 11:54 PM CDT [facility] Specimen Type Cap Fingerstick 2022 11:54 PM CDT [facility] Blood BLOOD SPECIMEN / Unknown 12/03/2022 3:58 PM CDT 12/03/2022 11:54 PM CDT Ilir Mckenzie MD LAB - POINT OF CARE ORDERABLES [address] [address], [place] [phone] * GLUCOSE - POINT OF CARE (12/03/2022 11:54 AM CDT) Glucose WB/POC 99 70 - 115 mg/dL 12/03/2022 11:56 AM CDT [facility] Specimen Type Cap Fingerstick 2022 11:56 AM CDT [facility] Blood BLOOD SPECIMEN / Unknown 12/03/2022 11:54 AM CDT 12/03/2022 11:56 AM CDT Ilir Mckenzie MD LAB - POINT OF CARE ORDERABLES Performing Organization Address City/[facility]/ZIP Co de Phone Number [address] [address], [place] [phone] * GLUCOSE - POINT OF CARE (12/03/2022 7:58 AM CDT) Glucose WB/POC 97 70 - 115 mg/dL 12/03/2022 8:03 AM CDT [facility] Specimen Type Cap Fingerstick 2022 8:03 AM CDT [facility] Blood BLOOD SPECIMEN / Unknown 12/03/2022 7:58 AM CDT 12/03/2022 8:03 AM CDT lIir Mckenzie MD LAB - POINT OF CARE ORDERABLES [address] [address], [place] [phone] * GLUCOSE - POINT OF CARE (12/03/2022 4:01 AM CDT) Pathologist [facility] Glucose WB/POC 103 70 - 115 mg/dL 12/03/2022 8:03 AM T [facility] Specimen Type Cap Fingerstick 2022 8:03 AM CDT [facility] Blood BLOOD SPECIMEN / Unknown 12/03/2022 4:01 AM CDT 12/03/2022 8:03 AM CDT Ilir Mckenzie MD LAB - POINT OF CARE ORDERABLES [facility] [address] [place] [phone], [place] [phone] * MAGNESIUM BLOOD (12/03/2022 2:29 AM CDT) Pathologist [facility] Magnesium 2.1 1.6 - 2.6 mg/dL 12/03/2022 3:08 AM [facility] Blood BLOOD SPECIMEN / Unknown Venipuncture / Unknown 12/03/2022 2:29 AM CDT 12/03/2022 2:36 AM CDT Neville Hewitt III, MD LAB - CHEMISTRY ORDERABLES [address] [address], [place] [phone] * (ABNORMAL) RENAL FUNCTION PANEL (12/03/2022 2:29 AM CDT) Pathologist [facility] BUN 18 7 - 26 mg/dL 12/03/2022 3:08 AM [facility] Creatinine 0.50(L) 0.71 - 1.16 mg/dL 12/03/2022 3:08 AM [facility] Sodium 143 136 - 145 mmol/L 12/03/2022 3:08 AM [facility] Potassium 4.4 3.5 - 4.5 mmol/L 12/03/2022 3:08 AM [facility] Chloride 111(H) 98 - 107 mmol/L 12/03/2022 3:08 AM [facility] CO2 22 22 - 29 mmol/L 12/03/2022 3:08 AM [facility] Glucose 111 70 - 115 mg/dL 12/03/2022 3:08 AM [facility] Albumin 2.1(L) 3.4 - 5.0 g/dL 12/03/2022 3:08 AM [facility] Calcium 9.5 8.4 - 10.2 mg/dL 12/03/2022 3:08 AM [facility] Phosphorus 2.6(L) 2.8 - 5.1 mg/dL 12/03/2022 3:08 AM [facility] Anion Gap 14 8 - 18 12/03/2022 3:08 AM [facility] BUN/Creatinine Ratio 36(H) 7 - 23 12/03/2022 3:08 AM [facility] Osmolality Calculated 299 270 - 300 mOsm/kg 12/03/2022 3:08 AM [facility] eGFR by CKD-EPI >90 >=90 mL/min/1.7 3 m2 12/03/2022 3:08 AM [facility] Blood BLOOD SPECIMEN / Unknown Venipuncture / Unknown 12/03/2022 2:29 AM CDT 12/03/2022 2:36 AM T Neville Hewitt III, MD LAB - CHEMISTRY ORDERABLES Performing Organization Address [facility] Co de Phone Number [facility] [address] [place] [phone] [phone] * (ABNORMAL) CBC W AUTO DIFFERENTIAL (12/03/2022 2:29 AM CDT) WBC 9.4 3.5 - 10.5 10? 3 /uL 12/03/2022 2:40 AM [facility] RBC 3.12(L) 4.30 - 5.70 10? 6 /uL 12/03/2022 2:40 AM [facility] Hemoglobin 9.3(L) 12.0 - 17.6 g/dL 12/03/2022 2:40 AM [facility] Hematocrit 28.3(L) 35.2 - 51.7 % 12/03/2022 2:40 AM [facility] MCV 90.7 80.7 - 98.3 fL 12/03/2022 2:40 AM [facility] MCH 29.8 26.7 - 34.0 pg 12/03/2022 2:40 AM [facility] MCHC 32.9 30.8 - 35.9 g/dL 12/03/2022 2:40 AM [facility] RDW-SD 58.6(H) 36.0 - 50.0 fL 12/03/2022 2:40 AM [facility] RDW-CV 17.6(H) 11.2 - 14.8 % 12/03/2022 2:40 AM [facility] Platelet Count 330 150 - 400 10? 3 /uL 12/03/2022 2:40 AM [facility] MPV 10.8 9.4 - 12.9 fL 12/03/2022 2:40 AM [facility] nRBC Absolute 0.00 0 10? 3 /uL 12/03/2022 2:40 AM [facility] nRBC Auto 0.0 0 /100 WBC 12/03/2022 2:40 AM [facility] Neutrophils % 67.1 35.0 - 70.0 % 12/03/2022 2:40 AM [facility] Lymphocytes % 18.3(L) 20.0 - 43.0 % 12/03/2022 2:40 AM [facility] Monocytes % 10.4 5.0 - 13.0 % 12/03/2022 2:40 AM [facility] Eosinophils % 3.6 0.0 - 6.0 % 12/03/2022 2:40 AM [facility] Basophil % 0.2 0.0 - 2.0 % 12/03/2022 2:40 AM [facility] Neutrophils Absolute 6.30 1.60 - 7.00 10? 3 /uL 12/03/2022 2:40 AM [facility] Lymphocyte Absolute 1.72 1.10 - 3.90 10? 3 /uL 12/03/2022 2:40 AM CDT [facility] Monocytes Absolute 0.98 0.26 - 1.07 10? 3 /uL 12/03/2022 2:40 AM CDT [facility] Eosinophils Absolute 0.34 0.00 - 0.47 10? 3 /uL 12/03/2022 2:40 AM CDT [facility] Basophils Absolute 0.02 0.00 - 0.08 10? 3 /uL 12/03/2022 2:40 AM T [facility] Immature Granulocytes % 0.4 0.0 - 1.0 % 12/03/2022 2:40 AM T [facility] Immature Granulocytes Absolute 0.04 12/03/2022 2:40 AM T [facility] Blood BLOOD SPECIMEN / Unknown Venipuncture / Unknown 12/03/2022 2:29 AM CDT 12/03/2022 2:36 AM CDT Neville Hewitt III, MD LAB - HEMATOLOGY ORDERABLES [address] [address], [place] [phone] * GLUCOSE - POINT OF CARE (12/02/2022 11:36 PM CDT) Glucose WB/POC 100 70 - 115 mg/dL 12/03/2022 8:03 AM CDT [facility] Specimen Type Cap Fingerstick 2022 8:03 AM CDT [facility] Blood BLOOD SPECIMEN / Unknown 12/02/2022 11:36 PM CDT 12/03/2022 8:03 AM CDT Ilir Mckenzie MD LAB - POINT OF CARE ORDERABLES [address] [address], [place] [phone] * GLUCOSE - POINT OF CARE (12/02/2022 7:43 PM CDT) Glucose WB/POC 108 70 - 115 mg/dL 12/03/2022 8:03 AM CDT [facility] Specimen Type Cap Fingerstick 2022 8:03 AM CDT [facility] Blood BLOOD SPECIMEN / Unknown 12/02/2022 7:43 PM CDT 12/03/2022 8:03 AM CDT Ilir Mckenzie MD LAB - POINT OF CARE ORDERABLES [address] [address], [place] [phone] * GLUCOSE - POINT OF CARE (12/02/2022 4:21 PM CDT) Glucose WB/POC 96 70 - 115 mg/dL 12/03/2022 8:03 AM CDT [facility] Specimen Type Cap Fingerstick 2022 8:03 AM CDT [facility] Blood BLOOD SPECIMEN / Unknown 12/02/2022 4:21 PM CDT 12/03/2022 8:03 AM CDT Ilir Mckenzie MD LAB - POINT OF CARE ORDERABLES Performing Organization Address City/[facility]/ZIP Co de Phone Number [address] [address], [place] [phone] * (ABNORMAL) GLUCOSE - POINT OF CARE (12/02/2022 12:05 PM CDT) Glucose WB/POC 121(H) 70 - 115 mg/dL 12/02/2022 12:10 PM CDT [facility] Specimen Type Cap Fingerstick 2022 12:10 PM CDT [facility] Blood BLOOD SPECIMEN / Unknown 12/02/2022 12:05 PM CDT 12/02/2022 12:10 PM CDT Ilir Mckenzie MD LAB - POINT OF CARE ORDERABLES [address] [address], [place] [phone] * GLUCOSE - POINT OF CARE (12/02/2022 7:57 AM CDT) Glucose WB/POC 111 70 - 115 mg/dL 12/02/2022 12:10 PM CDT [facility] Specimen Type Cap Fingerstick 2022 12:10 PM CDT [facility] Blood BLOOD SPECIMEN / Unknown 12/02/2022 7:57 AM CDT 12/02/2022 12:10 PM CDT Ilir Mckenzie MD LAB - POINT OF CARE ORDERABLES [address] [address], [place] [phone] * MAGNESIUM BLOOD (12/02/2022 3:56 AM CDT) Pathologist [facility] Magnesium 1.9 1.6 - 2.6 mg/dL 12/02/2022 4:40 AM CDT [facility] Blood BLOOD SPECIMEN / Unknown Venipuncture / Unknown 12/02/2022 3:56 AM CDT 12/02/2022 4:06 AM CDT Neville Hewitt III, MD LAB - CHEMISTRY ORDERABLES [address] [address], [place] [phone] * (ABNORMAL) RENAL FUNCTION PANEL (12/02/2022 3:56 AM CDT) BUN 14 7 - 26 mg/dL 12/02/2022 4:40 AM CDT [facility] Creatinine 0.55(L) 0.71 - 1.16 mg/dL 12/02/2022 4:40 AM CDT [facility] Sodium 140 136 - 145 mmol/L 12/02/2022 4:40 AM CDT [facility] Potassium 4.3 3.5 - 4.5 mmol/L 12/02/2022 4:40 AM [facility] Chloride 109(H) 98 - 107 mmol/L 12/02/2022 4:40 AM [facility] CO2 25 22 - 29 mmol/L 12/02/2022 4:40 AM [facility] Glucose 105 70 - 115 mg/dL 12/02/2022 4:40 AM [facility] Albumin 2.2(L) 3.4 - 5.0 g/dL 12/02/2022 4:40 AM [facility] Calcium 9.9 8.4 - 10.2 mg/dL 12/02/2022 4:40 AM [facility] Phosphorus 3.0 2.8 - 5.1 mg/dL 12/02/2022 4:40 AM [facility] Anion Gap 10 8 - 18 12/02/2022 4:40 AM [facility] BUN/Creatinine Ratio 25(H) 7 - 23 12/02/2022 4:40 AM [facility] Osmolality Calculated 291 270 - 300 mOsm/kg 12/02/2022 4:40 AM [facility] eGFR by CKD-EPI >90 >=90 mL/min/1.7 3 m2 12/02/2022 4:40 AM [facility] Blood BLOOD SPECIMEN / Unknown Venipuncture / Unknown 12/02/2022 3:56 AM CDT 12/02/2022 4:06 AM CDT Neville Hewitt III, MD LAB - CHEMISTRY ORDERABLES Performing Organization Address City/State/[facility] Co de Phone Number [facility] [address] [place] [address], [facility] [phone] * (ABNORMAL) CBC W AUTO DIFFERENTIAL (12/02/2022 3:56 AM CDT) WBC 13.6(H) 3.5 - 10.5 10? 3 /uL 12/02/2022 4:32 AM [facility] RBC 3.22(L) 4.30 - 5.70 10? 6 /uL 12/02/2022 4:32 AM [facility] Hemoglobin 9.6(L) 12.0 - 17.6 g/dL 12/02/2022 4:32 AM [facility] Hematocrit 29.2(L) 35.2 - 51.7 % 12/02/2022 4:32 AM [facility] MCV 90.7 80.7 - 98.3 fL 12/02/2022 4:32 AM [facility] MCH 29.8 26.7 - 34.0 pg 12/02/2022 4:32 AM [facility] MCHC 32.9 30.8 - 35.9 g/dL 12/02/2022 4:32 AM [facility] RDW-SD 60.5(H) 36.0 - 50.0 fL 12/02/2022 4:32 AM [facility] RDW-CV 18.3(H) 11.2 - 14.8 % 12/02/2022 4:32 AM [facility] Platelet Count 338 150 - 400 10? 3 /uL 12/02/2022 4:32 AM [facility] MPV 11.5 9.4 - 12.9 fL 12/02/2022 4:32 AM [facility] nRBC Absolute 0.00 0 10? 3 /uL 12/02/2022 4:32 AM [facility] nRBC Auto 0.0 0 /100 WBC 12/02/2022 4:32 AM [facility] Neutrophils % 76.5(H) 35.0 - 70.0 % 12/02/2022 4:32 AM [facility] Lymphocytes % 11.7(L) 20.0 - 43.0 % 12/02/2022 4:32 AM [facility] Monocytes % 9.3 5.0 - 13.0 % 12/02/2022 4:32 AM [facility] Eosinophils % 1.8 0.0 - 6.0 % 12/02/2022 4:32 AM [facility] Basophil % 0.2 0.0 - 2.0 % 12/02/2022 4:32 AM [facility] Neutrophils Absolute 10.38(H) 1.60 - 7.00 10? 3 /uL 12/02/2022 4:32 AM CDT [facility] Lymphocyte Absolute 1.59 1.10 - 3.90 10? 3 /uL 12/02/2022 4:32 AM CDT [facility] Monocytes Absolute 1.26(H) 0.26 - 1.07 10? 3 /uL 12/02/2022 4:32 AM CDT [facility] Eosinophils Absolute 0.24 0.00 - 0.47 10? 3 /uL 12/02/2022 4:32 AM CDT [facility] Basophils Absolute 0.03 0.00 - 0.08 10? 3 /uL 12/02/2022 4:32 AM CDT [facility] Immature Granulocytes % 0.5 0.0 - 1.0 % 12/02/2022 4:32 AM CDT [facility] Immature Granulocytes Absolute 0.07 12/02/2022 4:32 AM CDT [facility] Blood BLOOD SPECIMEN / Unknown Venipuncture / Unknown 12/02/2022 3:56 AM CDT 12/02/2022 4:06 AM CDT Neville Hewitt III, MD LAB - HEMATOLOGY ORDERABLES [address] [address], [facility] [phone] * GLUCOSE - POINT OF CARE (12/02/2022 3:55 AM CDT) [facility] Glucose WB/POC 103 70 - 115 mg/dL 12/02/2022 12:10 PM CDT [facility] Specimen Type Venous 12/02/2022 12:10 PM CDT [facility] Blood BLOOD SPECIMEN / Unknown 12/02/2022 3:55 AM CDT 12/02/2022 12:10 PM CDT Ilir Mckenzie MD LAB - POINT OF CARE ORDERABLES [address] [address], [place] [phone] * GLUCOSE - POINT OF CARE (12/01/2022 11:44 PM CDT) Glucose WB/POC 110 70 - 115 mg/dL 12/02/2022 12:10 PM CDT [facility] Specimen Type Cap Fingerstick 2022 12:10 PM CDT [facility] Blood BLOOD SPECIMEN / Unknown 12/01/2022 11:44 PM CDT 12/02/2022 12:10 PM CDT Ilir Mckenzie MD LAB - POINT OF CARE ORDERABLES [facility] [address] [place] [address], [place] [phone] * GLUCOSE - POINT OF CARE (12/01/2022 7:42 PM CDT) Glucose WB/POC 108 70 - 115 mg/dL 12/02/2022 12:10 PM CDT [facility] Specimen Type Cap Fingerstick 2022 12:10 PM CDT [facility] Blood BLOOD SPECIMEN / Unknown 12/01/2022 7:42 PM CDT 12/02/2022 12:10 PM CDT Ilir Mckenzie MD LAB - POINT OF CARE ORDERABLES Performing Organization Address City/[facility]/ZIP Co de Phone Number [address] [address], [place] [phone] * GLUCOSE - POINT OF CARE (12/01/2022 3:55 PM CDT) Glucose WB/POC 111 70 - 115 mg/dL 12/01/2022 4:00 PM CDT [facility] Specimen Type Cap Fingerstick 2022 4:00 PM CDT [facility] Blood BLOOD SPECIMEN / Unknown 12/01/2022 3:55 PM CDT 12/01/2022 4:00 PM CDT Ilir Mckenzie MD LAB - POINT OF CARE ORDERABLES [facility] [address] [place] [address], [place] [phone] * (ABNORMAL) GLUCOSE - POINT OF CARE (12/01/2022 1:53 PM CDT) Glucose WB/POC 118(H) 70 - 115 mg/dL 12/01/2022 4:00 PM CDT [facility] Specimen Type Cap Fingerstick 2022 4:00 PM CDT [facility] Blood BLOOD SPECIMEN / Unknown 12/01/2022 1:53 PM CDT 12/01/2022 4:00 PM CDT Ilir Mckenzie MD LAB - POINT OF CARE ORDERABLES [facility] [address] [place] [address], [place] [phone] * (ABNORMAL) GLUCOSE - POINT OF CARE (12/01/2022 7:10 AM CDT) Glucose WB/POC 116(H) 70 - 115 mg/dL 12/01/2022 4:00 PM CDT [facility] Specimen Type Cap Fingerstick 2022 4:00 PM CDT [facility] Blood BLOOD SPECIMEN / Unknown 12/01/2022 7:10 AM CDT 12/01/2022 4:00 PM CDT Ilir Mckenzie MD LAB - POINT OF CARE ORDERABLES [facility] [address] [place] [address], [place] [phone] * (ABNORMAL) GLUCOSE - POINT OF CARE (12/01/2022 3:38 AM CDT) Glucose WB/POC 126(H) 70 - 115 mg/dL 12/01/2022 4:00 PM CDT [facility] Specimen Type Venous 12/01/2022 4:00 PM CDT [facility] Blood BLOOD SPECIMEN / Unknown 12/01/2022 3:38 AM CDT 12/01/2022 4:00 PM CDT Ilir Mckenzie MD LAB - POINT OF CARE ORDERABLES Performing Organization Address City/[facility]/ZIP Co de Phone Number [address] [address], [facility] [phone] * MAGNESIUM BLOOD (12/01/2022 3:38 AM CDT) Magnesium 2.0 1.6 - 2.6 mg/dL 12/01/2022 4:36 AM [facility] Blood BLOOD SPECIMEN / Unknown Venipuncture / Unknown 12/01/2022 3:38 AM CDT 12/01/2022 4:02 AM CDT Neville Hewitt III, MD LAB - CHEMISTRY ORDERABLES Performing Organization Address City/[facility]/ZIP Co de Phone Number [address] [address], [facility] [phone] * (ABNORMAL) RENAL FUNCTION PANEL (12/01/2022 3:38 AM CDT) BUN 10 7 - 26 mg/dL 12/01/2022 4:36 AM [facility] Creatinine 0.53(L) 0.71 - 1.16 mg/dL 12/01/2022 4:36 AM [facility] Sodium 139 136 - 145 mmol/L 12/01/2022 4:36 AM [facility] Potassium 3.8 3.5 - 4.5 mmol/L 12/01/2022 4:36 AM [facility] Chloride 109(H) 98 - 107 mmol/L 12/01/2022 4:36 AM [facility] CO2 23 22 - 29 mmol/L 12/01/2022 4:36 AM [facility] Glucose 124(H) 70 - 115 mg/dL 12/01/2022 4:36 AM [facility] Albumin 2.0(L) 3.4 - 5.0 g/dL 12/01/2022 4:36 AM [facility] Calcium 9.3 8.4 - 10.2 mg/dL 12/01/2022 4:36 AM [facility] Phosphorus 2.7(L) 2.8 - 5.1 mg/dL 12/01/2022 4:36 AM [facility] Anion Gap 11 8 - 18 12/01/2022 4:36 AM [facility] BUN/Creatinine Ratio 19 7 - 23 12/01/2022 4:36 AM [facility] Osmolality Calculated 288 270 - 300 mOsm/kg 12/01/2022 4:36 AM [facility] eGFR by CKD-EPI >90 >=90 mL/min/1.7 3 m2 12/01/2022 4:36 AM [facility] Blood BLOOD SPECIMEN / Unknown Venipuncture / Unknown 12/01/2022 3:38 AM CDT 12/01/2022 4:02 AM T Neville Hewitt III, MD LAB - CHEMISTRY ORDERABLES [facility] [address] [place] [address], [facility] [phone] * (ABNORMAL) CBC W AUTO DIFFERENTIAL (12/01/2022 3:38 AM T) WBC 10.9(H) 3.5 - 10.5 10? 3 /uL 12/01/2022 4:07 AM [facility] RBC 3.17(L) 4.30 - 5.70 10? 6 /uL 12/01/2022 4:07 AM [facility] Hemoglobin 9.4(L) 12.0 - 17.6 g/dL 12/01/2022 4:07 AM [facility] Hematocrit 28.4(L) 35.2 - 51.7 % 12/01/2022 4:07 AM [facility] MCV 89.6 80.7 - 98.3 fL 12/01/2022 4:07 AM [facility] MCH 29.7 26.7 - 34.0 pg 12/01/2022 4:07 AM [facility] MCHC 33.1 30.8 - 35.9 g/dL 12/01/2022 4:07 AM [facility] RDW-SD 58.7(H) 36.0 - 50.0 fL 12/01/2022 4:07 AM [facility] RDW-CV 17.8(H) 11.2 - 14.8 % 12/01/2022 4:07 AM [facility] Platelet Count 259 150 - 400 10? 3 /uL 12/01/2022 4:07 AM [facility] MPV 12.2 9.4 - 12.9 fL 12/01/2022 4:07 AM [facility] nRBC Absolute 0.00 0 10? 3 /uL 12/01/2022 4:07 AM [facility] nRBC Auto 0.0 0 /100 WBC 12/01/2022 4:07 AM [facility] Neutrophils % 64.5 35.0 - 70.0 % 12/01/2022 4:07 AM [facility] Lymphocytes % 19.3(L) 20.0 - 43.0 % 12/01/2022 4:07 AM [facility] Monocytes % 12.8 5.0 - 13.0 % 12/01/2022 4:07 AM [facility] Eosinophils % 2.7 0.0 - 6.0 % 12/01/2022 4:07 AM [facility] Basophil % 0.3 0.0 - 2.0 % 12/01/2022 4:07 AM [facility] Neutrophils Absolute 7.01(H) 1.60 - 7.00 10? 3 /uL 12/01/2022 4:07 AM [facility] Lymphocyte Absolute 2.09 1.10 - 3.90 10? 3 /uL 12/01/2022 4:07 AM [facility] Monocytes Absolute 1.39(H) 0.26 - 1.07 10? 3 /uL 12/01/2022 4:07 AM [facility] Eosinophils Absolute 0.29 0.00 - 0.47 10? 3 /uL 12/01/2022 4:07 AM CDT [facility] Basophils Absolute 0.03 0.00 - 0.08 10? 3 /uL 12/01/2022 4:07 AM CDT [facility] Immature Granulocytes % 0.4 0.0 - 1.0 % 12/01/2022 4:07 AM CDT [facility] Immature Granulocytes Absolute 0.04 12/01/2022 4:07 AM CDT [facility] Blood BLOOD SPECIMEN / Unknown Venipuncture / Unknown 12/01/2022 3:38 AM CDT 12/01/2022 4:02 AM CDT Neville Hewitt III, MD LAB - HEMATOLOGY ORDERABLES [address] [address], [facility] [phone] * TRANSFUSE RED BLOOD CELL LEUKOREDUCED UNIT(S) (12/01/2022 2:23 AM CDT) Ilir Mckenzie MD NURSING - BLOOD PROD TRANSFUSION * TRANSFUSE RED BLOOD CELL LEUKOREDUCED UNIT(S), 1 Units (12/01/2022 2:23 AM CDT) Ilir Mckenzie MD NURSING - BLOOD PROD TRANSFUSION * (ABNORMAL) GLUCOSE - POINT OF CARE (11/30/2022 11:26 PM CDT) [facility] Glucose WB/POC 125(H) 70 - 115 mg/dL 11/30/2022 11:26 PM CDT [facility] Specimen Type Cap Fingerstick 2022 11:26 PM CDT [facility] Blood BLOOD SPECIMEN / Unknown 11/30/2022 11:26 PM CDT 11/30/2022 11:26 PM CDT Ilir Mckenzie MD LAB - POINT OF CARE ORDERABLES [address] [address], [place] [phone] * PREPARE (CROSSMATCH) RBC UNIT(S), 1 Units (11/30/2022 10:51 PM CDT) Unit Description AS1 LR PRBC IRR [facility] Unit ABO O [facility] Unit Rh POS [facility] Product Number R04 [facility] Unit Donor # [id number] [facility] Unit Status transfused [facility] Product Code [id number] [facility] Blood Type Barcode 5100 [facility] Expiration Date [id number] [facility] Blood Bank BLOOD SPECIMEN / Unknown 11/30/2022 5:03 PM CDT Ilir Mckenzie MD LAB - BLOOD BANK ORD ERABLES [facility] [address] [place] [address], [place] [phone] * (ABNORMAL) GLUCOSE - POINT OF CARE (11/30/2022 7:56 PM CDT) [facility] Glucose WB/POC 128(H) 70 - 115 mg/dL 11/30/2022 11:22 PM CDT [facility] Specimen Type Cap Fingerstick 2022 11:22 PM CDT [facility] Blood BLOOD SPECIMEN / Unknown 11/30/2022 7:56 PM CDT 11/30/2022 11:22 PM CDT Ilir Mckenzie MD LAB - POINT OF CARE ORDERABLES [facility] [address] [place] [address], [place] [phone] * TYPE + SCREEN PANEL (11/30/2022 4:57 PM CDT) Pathologist [facility] Antibody Screen NEG 6:03 PM CDT [facility] ABO Rh O POS 11/30/2022 6:03 PM CDT [facility] Blood Bank BLOOD SPECIMEN / Unknown Venipuncture / Unknown 11/30/2022 4:57 PM CDT 11/30/2022 5:03 PM CDT Ilir Mckenzie MD LAB - BLOOD BANK ORD ERABLES Performing Organization Address City/[facility]/ZIP Co de Phone Number [facility] [address] [place] [address], [facility] [phone] * (ABNORMAL) GLUCOSE - POINT OF CARE (11/30/2022 3:08 PM CDT) [facility] Glucose WB/POC 139(H) 70 - 115 mg/dL 11/30/2022 3:13 PM CDT [facility] Specimen Type Cap Fingerstick 2022 3:13 PM CDT [facility] Blood BLOOD SPECIMEN / Unknown 11/30/2022 3:08 PM CDT 11/30/2022 3:13 PM CDT Ilir Mckenzie MD LAB - POINT OF CARE ORDERABLES Performing Organization Address [facility]/ZIP Co de Phone Number [address] [address], [facility] [phone] * VANCOMYCIN LEVEL TROUGH (11/30/2022 3:08 PM CDT) [facility] Vancomycin Trough 13.1 10.0 - 20.0 ug/mL 11/30/2022 3:53 PM CDT [facility] Blood BLOOD SPECIMEN / Unknown Venipuncture / Unknown 11/30/2022 3:08 PM CDT 11/30/2022 3:19 PM CDT Narrative [facility] - 11/30/2022 3:53 PM CDT See institution protocol. Ck Thorne MD LAB - CHEMISTRY OR DERABLES Performing Organization Address [facility]/ZIP Co de Phone Number [address] [address], [facility] [phone] * (ABNORMAL) GLUCOSE - POINT OF CARE (11/30/2022 1:24 PM CDT) [facility] Glucose WB/POC 120(H) 70 - 115 mg/dL 11/30/2022 2:58 PM CDT [facility] Specimen Type Cap Fingerstick 2022 2:58 PM CDT [facility] Blood BLOOD SPECIMEN / Unknown 11/30/2022 1:24 PM CDT 11/30/2022 2:57 PM CDT Ilir Mckenzie MD LAB - POINT OF CARE ORDERABLES Performing Organization Address [facility] Co de Phone Number [address] [address], [facility] [phone] * (ABNORMAL) GLUCOSE - POINT OF CARE (11/30/2022 9:44 AM CDT) Glucose WB/POC 126(H) 70 - 115 mg/dL 11/30/2022 9:49 AM CDT [facility] Specimen Type Cap Fingerstick 2022 9:49 AM CDT [facility] Blood BLOOD SPECIMEN / Unknown 11/30/2022 9:44 AM CDT 11/30/2022 9:49 AM CDT Ilir Mckenzie MD LAB - POINT OF CARE ORDERABLES Performing Organization Address [facility] Co de Phone Number [address] [address], [place] [phone] * (ABNORMAL) VANCOMYCIN LEVEL PEAK (11/30/2022 6:17 AM CDT) Pathologist [facility] Vancomycin Peak 24.9(L) 25.0 - 40.0 ug/mL 11/30/2022 7:27 AM CDT [facility] Blood BLOOD SPECIMEN / Unknown Venipuncture / Unknown 11/30/2022 6:17 AM CDT 11/30/2022 6:20 AM CDT Narrative [facility] - 11/30/2022 7:27 AM CDT See institution protocol. Data does not support the use of vancomycin peak concentration for efficacy. Ck Thorne MD LAB - CHEMISTRY OR DERABLES [facility] [address] [place] [address], [facility] [phone] * MAGNESIUM BLOOD (11/30/2022 3:20 AM CDT) Pathologist [facility] Magnesium 1.9 1.6 - 2.6 mg/dL 11/30/2022 3:59 AM [facility] Blood BLOOD SPECIMEN / Unknown Venipuncture / Unknown 11/30/2022 3:20 AM CDT 11/30/2022 3:24 AM CDT Neville Hewitt III, MD LAB - CHEMISTRY ORDERABLES [facility] [address] [place] [address], [facility] [phone] * (ABNORMAL) RENAL FUNCTION PANEL (11/30/2022 3:20 AM CDT) Pathologist [facility] BUN 8 7 - 26 mg/dL 11/30/2022 3:59 AM [facility] Creatinine 0.54(L) 0.71 - 1.16 mg/dL 11/30/2022 3:59 AM [facility] Sodium 139 136 - 145 mmol/L 11/30/2022 3:59 AM [facility] Potassium 3.8 3.5 - 4.5 mmol/L 11/30/2022 3:59 AM [facility] Chloride 108(H) 98 - 107 mmol/L 11/30/2022 3:59 AM [facility] CO2 25 22 - 29 mmol/L 11/30/2022 3:59 AM [facility] Glucose 108 70 - 115 mg/dL 11/30/2022 3:59 AM [facility] Albumin 2.0(L) 3.4 - 5.0 g/dL 11/30/2022 3:59 AM [facility] Calcium 9.3 8.4 - 10.2 mg/dL 11/30/2022 3:59 AM [facility] Phosphorus 2.9 2.8 - 5.1 mg/dL 11/30/2022 3:59 AM [facility] Anion Gap 10 8 - 18 11/30/2022 3:59 AM [facility] BUN/Creatinine Ratio 15 7 - 23 11/30/2022 3:59 AM [facility] Osmolality Calculated 287 270 - 300 mOsm/kg 11/30/2022 3:59 AM [facility] eGFR by CKD-EPI >90 >=90 mL/min/1.7 3 m2 11/30/2022 3:59 AM [facility] Blood BLOOD SPECIMEN / Unknown Venipuncture / Unknown 11/30/2022 3:20 AM CDT 11/30/2022 3:24 AM T Neville Hewitt III, MD LAB - CHEMISTRY ORDERABLES [facility] [address] [place] [address], [facility] [phone] * (ABNORMAL) CBC W AUTO DIFFERENTIAL (11/30/2022 3:20 AM CDT) WBC 8.9 3.5 - 10.5 10? 3 /uL 11/30/2022 3:34 AM [facility] RBC 2.64(L) 4.30 - 5.70 10? 6 /uL 11/30/2022 3:34 AM [facility] Hemoglobin 8.0(L) 12.0 - 17.6 g/dL 11/30/2022 3:34 AM [facility] Hematocrit 24.8(L) 35.2 - 51.7 % 11/30/2022 3:34 AM [facility] MCV 93.9 80.7 - 98.3 fL 11/30/2022 3:34 AM [facility] MCH 30.3 26.7 - 34.0 pg 11/30/2022 3:34 AM [facility] MCHC 32.3 30.8 - 35.9 g/dL 11/30/2022 3:34 AM [facility] RDW-SD 54.6(H) 36.0 - 50.0 fL 11/30/2022 3:34 AM [facility] RDW-CV 15.9(H) 11.2 - 14.8 % 11/30/2022 3:34 AM [facility] Platelet Count 205 150 - 400 10? 3 /uL 11/30/2022 3:34 AM [facility] MPV 11.6 9.4 - 12.9 fL 11/30/2022 3:34 AM [facility] nRBC Absolute 0.00 0 10? 3 /uL 11/30/2022 3:34 AM [facility] nRBC Auto 0.0 0 /100 WBC 11/30/2022 3:34 AM [facility] Neutrophils % 62.6 35.0 - 70.0 % 11/30/2022 3:34 AM [facility] Lymphocytes % 20.5 20.0 - 43.0 % 11/30/2022 3:34 AM [facility] Monocytes % 12.7 5.0 - 13.0 % 11/30/2022 3:34 AM [facility] Eosinophils % 3.6 0.0 - 6.0 % 11/30/2022 3:34 AM [facility] Basophil % 0.2 0.0 - 2.0 % 11/30/2022 3:34 AM [facility] Neutrophils Absolute 5.56 1.60 - 7.00 10? 3 /uL 11/30/2022 3:34 AM [facility] Lymphocyte Absolute 1.82 1.10 - 3.90 10? 3 /uL 11/30/2022 3:34 AM [facility] Monocytes Absolute 1.13(H) 0.26 - 1.07 10? 3 /uL 11/30/2022 3:34 AM [facility] Eosinophils Absolute 0.32 0.00 - 0.47 10? 3 /uL 11/30/2022 3:34 AM [facility] Basophils Absolute 0.02 0.00 - 0.08 10? 3 /uL 11/30/2022 3:34 AM [facility] Immature Granulocytes % 0.4 0.0 - 1.0 % 11/30/2022 3:34 AM [facility] Immature Granulocytes Absolute 0.04 11/30/2022 3:34 AM CDT [facility] Blood BLOOD SPECIMEN / Unknown Venipuncture / Unknown 11/30/2022 3:20 AM CDT 11/30/2022 3:24 AM CDT Neville Hewitt III, MD LAB - HEMATOLOGY ORDERABLES [address] [address], [place] [phone] * GLUCOSE - POINT OF CARE (11/30/2022 12:21 AM CDT) Glucose WB/POC 114 70 - 115 mg/dL 11/30/2022 9:40 AM CDT [facility] Specimen Type Cap Fingerstick 2022 9:40 AM CDT [facility] Blood BLOOD SPECIMEN / Unknown 11/30/2022 12:21 AM CDT 11/30/2022 9:40 AM CDT Ilir Mckenzie MD LAB - POINT OF CARE ORDERABLES [address] [address], [place] [phone] * GLUCOSE - POINT OF CARE (11/29/2022 7:48 PM CDT) Glucose WB/POC 113 70 - 115 mg/dL 11/30/2022 9:40 AM CDT [facility] Specimen Type Cap Fingerstick 2022 9:40 AM CDT [facility] Blood BLOOD SPECIMEN / Unknown 11/29/2022 7:48 PM CDT 11/30/2022 9:40 AM CDT Ilir Mckenzie MD LAB - POINT OF CARE ORDERABLES [address] [address], [place] [phone] * GLUCOSE - POINT OF CARE (11/29/2022 4:00 PM CDT) Glucose WB/POC 109 70 - 115 mg/dL 11/29/2022 4:00 PM CDT [facility] Specimen Type Cap Fingerstick 2022 4:00 PM CDT [facility] Blood BLOOD SPECIMEN / Unknown 11/29/2022 4:00 PM CDT 11/29/2022 4:00 PM CDT Ilir Mckenzie MD LAB - POINT OF CARE ORDERABLES [address] [address], [place] [phone] * (ABNORMAL) GLUCOSE - POINT OF CARE (11/29/2022 12:37 PM CDT) Glucose WB/POC 125(H) 70 - 115 mg/dL 11/29/2022 12:41 PM CDT [facility] Specimen Type Cap Fingerstick 2022 12:41 PM CDT [facility] Blood BLOOD SPECIMEN / Unknown 11/29/2022 12:37 PM CDT 11/29/2022 12:41 PM CDT Ilir Mckenzie MD LAB - POINT OF CARE ORDERABLES Performing Organization Address City/[facility]/ZIP Co de Phone Number [address] [address], [place] [phone] * VAS BILATERAL VENOUS DUPLEX LE (11/29/2022 11:46 AM CDT) Anatomical Region Laterality Modality Lower Extremity Intravascular Ul trasound 11/29/2022 11:1 3 AM CDT Narrative Procedure Note Kaylee Wills MD - 11/29/2022 Stephen Witt MD VASCULAR LAB OR DERABLES * EKG 12-LEAD (11/29/2022 11:40 AM CDT) Ventricular Rate 114 BPM [facility]USE Atrial Rate 114 BPM [facility] MUSE P-R Interval 136 ms [facility] QRS Duration ms 76 ms [facility] Q-T Interval ms 318 ms [facility] MUSE QTC Calculation (Bezet) 438 ms [facility] Calculated P [place] 60 degrees [facility] Calculated R [place] -13 degrees [facility] Calculated T [place] 74 degrees [facility] Interpretation EKG SINUS TACHYCARDIA ANTEROSEPTAL INFARCT (CITED ON OR BEFORE 09-OCT-2022) ST ELEVATION IN ANTEROSEPTAL LEADS consider aneurysm or no reflow ABNORMAL ECG WHEN COMPARED WITH ECG OF 27-NOV-2022 10:27, VENT. RATE HAS DECREASED by [address] ELEVATION NOW PRESENT IN ANTERIOR LEADS Confirmed by RYANNE HARDEN MD ([id number]) on 11/29/2022 7:22:59 PM [facility] MUSE 11/29/2022 11:4 0 AM CDT 11/29/2022 7:22 PM CDT Ilir Mckenzie MD ECG ORDERABLES [facility] MUSE * (ABNORMAL) ECHO COMPLETE (11/29/2022 9:56 AM CDT) Pathologist [facility] BSA [id number] m2 [facility] CV FUJ I PACS LV [...] PACS LVOT diam 2.0 cm [facility] area 3.14 cm2 [facility] LV RWT 0.446 [facility] LV Gutierrez A2C 7.796 cm SSM CV F UJI PACS LV Gutierrez A4C 7.882 cm SSM CV F UJI PACS MV E pk vladimir 54.381 cm/s SSM CV F UJI PACS MV avg E/e' ratio 5.89 SS M [facility] A pk vladimir 84.933 cm/s SSM CV F UJI PACS MV E A ratio 0.64 [facility] MV E' lateral vladimir 9.013 cm/s SS M CV FUJI PACS MV DT 172 ms SSM CV FUJ I PACS MV E' septal vladimir 9.46 cm/s SSM CV FUJI PACS MV A duration 126 ms [facility] E/e' septal 5.749 SSM C V FUJI PACS MV E/e' lateral 6.034 SSM CV FUJI PACS TR pk vladimir 225.4 cm/s [facility] P vein A vladimir 29.2 cm/s [facility] P vein A duration 112 ms [...] FUJI PACS RVIDd 2.7 cm [facility] RVOT VTI 14.352 cm [facility] TV S' vladimir 18.406 [facility] TAPSE 1.404(A) 1.7 cm [facility] RVOT pk vladimir 0.92 m/s S[facility] CV F U PACS RA area 12.027 cm2 [facility] P[facility] AV mn grad 4 mmHg SSM CV FU JI PACS AV pk grad 8 mmHg SSM CV FU JI PACS AV mn vladimir 0.98 m/s [facility] AV pk vladimir 1.39 m/s [facility] AV VTI 20.298 cm [facility] LVOT pk grad 3.53 mmHg SSM CV [facility] LVOT VTI 14.371 cm [facility] PACS AV area planimetry 2.22 cm2 [facility] AV area index 1.2 cm2/m2 SSM CV FUJI PACS AV area cont VTI 2.3 cm2 [facility] AV area pk vladimir 2.2 cm2 SSM C V [facility] PACS AV Doppler vladimir index pk vladimir 0.68 SSM CV [facility] P[facility] Dimensionless Index 0.708 SSM CV FUJI PACS MV mn grad 2 mmHg SSM CV FU JI PACS MV pk grad 4 mmHg SSM CV FU JI PACS MV mn vladimir 0.62 m/s SSM CV [facility] MV pk vladimir 99.51 cm/s [facility] MV PHT 50 ms SSM [...] 63.148 cm/s SSM CV FUJ I PACS [id number] 6.722 cm SSM CV FUJ I PACS [id number] 6.885 cm SSM CV FUJ I PACS [...] POINT OF CARE (11/29/2022 8:49 AM CDT) Glucose WB/POC 118(H) 70 - 115 mg/dL 11/29/2022 8:50 AM CDT [facility] Specimen Type Cap Fingerstick 2022 8:50 AM CDT [facility] Blood BLOOD SPECIMEN / Unknown 11/29/2022 8:49 AM CDT 11/29/2022 8:50 AM CDT Ilir Mckenzie MD LAB - POINT OF CARE ORDERABLES [facility] [address] [place] [address] [phone] * (ABNORMAL) METANEPHRINES URINE FRACTIONATED (11/29/2022 8:31 AM CDT) [facility] Metanephrine 24 Hour Urine 181 55 - 320 ug/d 12/03/2022 6:56 AM CDT [facility] ([facility]) Collection Time Hours 24 hr 12/03/2022 6:56 AM CDT [facility] ([facility]) Comment: Per 24h calculations are provided to aid interpretation for collections with a duration of 24 hours and an average daily urine volume. For specimens with notable deviations in collection time or volume, ratios of analytes to a corresponding urine creatinine concentration may assist in result interpretation. Volume 24 Hour Urine 1250 mL 12/03/2022 6:56 AM CDT [facility] ([facility]) Metanephrine Urine 145 ug/L 2022 6:56 AM CDT [facility] ([facility]) Normetanephrine Urine 1362 ug/L 12/03/2022 6:56 AM CDT [facility] ([facility]) Metanephrine Urine Ratio to PROFESSOR OF POLITICAL SCIENCE 179 0 - 300 ug/g PROFESSOR [employer] POLITICAL SCIENCE 12/03/2022 6:56 AM CDT [facility] ([facility]) Normetanephrine 24 Hour Urine 1702(H) 114 - 865 ug/d 12/03/2022 6:56 AM CDT [facility] ([facility]) Normetanephrine ug/g PROFESSOR [employer] POLITICAL SCIENCE 1681(H) 0 - 400 ug/g PROFESSOR [employer] POLITICAL SCIENCE 12/03/2022 6:56 AM CDT [facility] ([facility]) Interpretation Metanephrine Urine See Note 12/03/2022 6:56 AM CDT [facility] ([facility]) Comment: TEST INFORMATION: Metanephrines Fractionated, Urine Smaller [...] reference intervals for this test in the [facility] Test Directory ([employer]). This test was developed and its performance characteristics determined by [employer]. It has not been cleared or approved by the US Food and Drug Administration. This test was performed in a CLIA certified laboratory and is intended for clinical purposes. Creatinine Urine 81 mg/dL 12/04/19 6:56 AM CDT [employer] ([facility]) Creatinine 24 Hour Urine 1012 800 - 2100 mg/d 12/03/2022 6:56 AM CDT [facility] ([facility]) Comment: Performed by [facility], [address] [place] [address] [email or web address], Power Milian MD, PHD, Lab. Director Urine URINE SPECIMEN COLLECTION, 24 HOURS / Unknown Timed Urine Volume Measurement / Unknown 11/29/2022 8:31 AM CDT 11/29/2022 9:31 AM CDT Stephen Witt MD LAB - URINE STEFANI MATHEUS ORDERABLES [facility]) [address] * MAGNESIUM BLOOD (11/29/2022 3:12 AM CDT) Magnesium 1.9 1.6 - 2.6 mg/dL 11/29/2022 4:06 AM CDT [facility] Blood BLOOD SPECIMEN / Unknown Venipuncture / Unknown 11/29/2022 3:12 AM CDT 11/29/2022 3:36 AM CDT Neville Hewitt III, MD LAB - CHEMISTRY ORDERABLES [facility] [address] [place] [address], [place] [phone] * (ABNORMAL) RENAL FUNCTION PANEL (11/29/2022 3:12 AM CDT) BUN 11 7 - 26 mg/dL 11/29/2022 4:06 AM [facility] Creatinine 0.47(L) 0.71 - 1.16 mg/dL 11/29/2022 4:06 AM [facility] Sodium 136 136 - 145 mmol/L 11/29/2022 4:06 AM [facility] Potassium 4.1 3.5 - 4.5 mmol/L 11/29/2022 4:06 AM [facility] Chloride 108(H) 98 - 107 mmol/L 11/29/2022 4:06 AM [facility] CO2 23 22 - 29 mmol/L 11/29/2022 4:06 AM [facility] Glucose 125(H) 70 - 115 mg/dL 11/29/2022 4:06 AM [facility] Albumin 2.2(L) 3.4 - 5.0 g/dL 11/29/2022 4:06 AM [facility] Calcium 9.0 8.4 - 10.2 mg/dL 11/29/2022 4:06 AM [facility] Phosphorus 2.7(L) 2.8 - 5.1 mg/dL 11/29/2022 4:06 AM [facility] Anion Gap 9 8 - 18 11/29/2022 4:06 AM [facility] BUN/Creatinine Ratio 23 7 - 23 11/29/2022 4:06 AM [facility] Osmolality Calculated 283 270 - 300 mOsm/kg 11/29/2022 4:06 AM [facility] eGFR by CKD-EPI >90 >=90 mL/min/1.7 3 m2 11/29/2022 4:06 AM [facility] Blood BLOOD SPECIMEN / Unknown Venipuncture / Unknown 11/29/2022 3:12 AM CDT 11/29/2022 3:36 AM [facility] Neville Hewitt III, MD LAB - CHEMISTRY ORDERABLES [facility] [address] [place] [address], [facility] [phone] * (ABNORMAL) CBC W AUTO DIFFERENTIAL (11/29/2022 3:12 AM [facility]) WBC 12.9(H) 3.5 - 10.5 10? 3 /uL 11/29/2022 3:47 AM [facility] RBC 2.93(L) 4.30 - 5.70 10? 6 /uL 11/29/2022 3:47 AM [facility] Hemoglobin 9.1(L) 12.0 - 17.6 g/dL 11/29/2022 3:47 AM [facility] Hematocrit 27.3(L) 35.2 - 51.7 % 11/29/2022 3:47 AM [facility] MCV 93.2 80.7 - 98.3 fL 11/29/2022 3:47 AM [facility] MCH 31.1 26.7 - 34.0 pg 11/29/2022 3:47 AM [facility] MCHC 33.3 30.8 - 35.9 g/dL 11/29/2022 3:47 AM [facility] RDW-SD 54.0(H) 36.0 - 50.0 fL 11/29/2022 3:47 AM [facility] RDW-CV 15.9(H) 11.2 - 14.8 % 11/29/2022 3:47 AM [facility] Platelet Count 202 150 - 400 10? 3 /uL 11/29/2022 3:47 AM [facility] MPV 12.4 9.4 - 12.9 fL 11/29/2022 3:47 AM [facility] nRBC Absolute 0.00 0 10? 3 /uL 11/29/2022 3:47 AM [facility] nRBC Auto 0.0 0 /100 WBC 11/29/2022 3:47 AM [facility] Neutrophils % 73.5(H) 35.0 - 70.0 % 11/29/2022 3:47 AM [facility] Lymphocytes % 12.5(L) 20.0 - 43.0 % 11/29/2022 3:47 AM [facility] Monocytes % 11.3 5.0 - 13.0 % 11/29/2022 3:47 AM T [facility] Eosinophils % 2.0 0.0 - 6.0 % 11/29/2022 3:47 AM [facility] Basophil % 0.2 0.0 - 2.0 % 11/29/2022 3:47 AM [facility] Neutrophils Absolute 9.45(H) 1.60 - 7.00 10? 3 /uL 11/29/2022 3:47 AM T [facility] Lymphocyte Absolute 1.61 1.10 - 3.90 10? 3 /uL 11/29/2022 3:47 AM [facility] Monocytes Absolute 1.46(H) 0.26 - 1.07 10? 3 /uL 11/29/2022 3:47 AM [facility] Eosinophils Absolute 0.26 0.00 - 0.47 10? 3 /uL 11/29/2022 3:47 AM [facility] Basophils Absolute 0.03 0.00 - 0.08 10? 3 /uL 11/29/2022 3:47 AM [facility] Immature Granulocytes % 0.5 0.0 - 1.0 % 11/29/2022 3:47 AM [facility] Immature Granulocytes Absolute 0.07 11/29/2022 3:47 AM [facility] Blood BLOOD SPECIMEN / Unknown Venipuncture / Unknown 11/29/2022 3:12 AM CDT 11/29/2022 3:36 AM CDT Neville Hewitt III, MD LAB - HEMATOLOGY ORDERABLES [facility] [address] [place] [address], [facility] [phone] * (ABNORMAL) GLUCOSE - POINT OF CARE (11/28/2022 3:42 PM CDT) Glucose WB/POC 118(H) 70 - 115 mg/dL 11/29/2022 8:39 AM T [facility] Specimen Type Cap Fingerstick 2022 8:39 AM [facility] Blood BLOOD SPECIMEN / Unknown 11/28/2022 3:42 PM CDT 11/29/2022 8:39 AM CDT Stephen Witt MD LAB - POINT OF CARE ORDERABLES [facility] [address] [place] [address], [facility] [phone] * (ABNORMAL) CULTURE SPUTUM+GRAM STAIN (11/28/2022 2:27 PM CDT) Culture Heavy Pseudomonas aeruginosa(A) JELLY 12/02/2022 12:04 AM CDT [facility] Culture Moderate Acinetobacter baumannii(A) JELLY 12/02/2022 12:04 AM CDT [facility] Comment: Isolate is multi drug resistant organism (MDRO). Isolate is carbapenem resistant Culture Heavy normal oropharyngeal heidi 12/02/2022 12:04 AM CDT [facility] Gram Stain <10 per low power field Squamous epithelial cells 12/02/2022 12:04 AM CDT [facility] Gram Stain >= 25 per low power field Polymorphonuclear cells 12/02/2022 12:04 AM CDT [facility] Gram Stain Heavy Gram-negative bacilli 12/02/2022 12:04 AM CDT [facility] Gram Stain Heavy Gram-positive bacilli 12/02/2022 12:04 AM CDT [facility] Microbiology SPUTUM / Unknown Collection / Unknown 11/28/2022 2:27 PM CDT 11/28/2022 2:43 PM CDT Narrative [facility] - 12/02/2022 12:04 AM CDT This [...] Witt MD LAB - MICROBIOL OGY ORDERABLES [facility] MICROBIOLOGY [address] [place] [address], [facility] [phone] * (ABNORMAL) GLUCOSE - POINT OF CARE (11/28/2022 1:03 PM CDT) Pathologist [facility] Glucose WB/POC 141(H) 70 - 115 mg/dL 11/29/2022 8:39 AM CDT [facility] Specimen Type Cap Fingerstick 2022 8:39 AM CDT [facility] Blood BLOOD SPECIMEN / Unknown 11/28/2022 1:03 PM CDT 11/29/2022 8:39 AM CDT Stephen Witt MD LAB - POINT OF CARE ORDERABLES [facility] [address] [place] [address], [place] [phone] * (ABNORMAL) GLUCOSE - POINT OF CARE (11/28/2022 7:23 AM CDT) Glucose WB/POC 129(H) 70 - 115 mg/dL 11/28/2022 7:27 AM CDT [facility] Specimen Type Cap Fingerstick 2022 7:27 AM CDT [facility] Blood BLOOD SPECIMEN / Unknown 11/28/2022 7:23 AM CDT 11/28/2022 7:27 AM CDT Stephen Witt MD LAB - POINT OF CARE ORDERABLES [address] [address], [facility] [phone] * MAGNESIUM BLOOD (11/28/2022 4:34 AM CDT) Magnesium 1.8 1.6 - 2.6 mg/dL 11/28/2022 5:42 AM CDT [facility] Blood BLOOD SPECIMEN / Unknown Venipuncture / Unknown 11/28/2022 4:34 AM CDT 11/28/2022 5:13 AM CDT Neville Hewitt III, MD LAB - CHEMISTRY ORDERABLES [address] [address], [place] [phone] * (ABNORMAL) RENAL FUNCTION PANEL (11/28/2022 4:34 AM CDT) BUN 12 7 - 26 mg/dL 11/28/2022 5:42 AM CDT [facility] Creatinine 0.50(L) 0.71 - 1.16 mg/dL 11/28/2022 5:42 AM CDT [facility] Sodium 136 136 - 145 mmol/L 11/28/2022 5:42 AM CDT [facility] Potassium 4.1 3.5 - 4.5 mmol/L 11/28/2022 5:42 AM T [facility] Chloride 108(H) 98 - 107 mmol/L 11/28/2022 5:42 AM [facility] CO2 21(L) 22 - 29 mmol/L 11/28/2022 5:42 AM [facility] Glucose 129(H) 70 - 115 mg/dL 11/28/2022 5:42 AM [facility] Albumin 2.4(L) 3.4 - 5.0 g/dL 11/28/2022 5:42 AM [facility] Calcium 9.5 8.4 - 10.2 mg/dL 11/28/2022 5:42 AM [facility] Phosphorus 3.4 2.8 - 5.1 mg/dL 11/28/2022 5:42 AM [facility] Anion Gap 11 8 - 18 11/28/2022 5:42 AM [facility] BUN/Creatinine Ratio 24(H) 7 - 23 11/28/2022 5:42 AM [facility] Osmolality Calculated 283 270 - 300 mOsm/kg 11/28/2022 5:42 AM [facility] eGFR by CKD-EPI >90 >=90 mL/min/1.7 3 m2 11/28/2022 5:42 AM [facility] Blood BLOOD SPECIMEN / Unknown Venipuncture / Unknown 11/28/2022 4:34 AM CDT 11/28/2022 5:13 AM CDT Neville Hewitt III, MD LAB - CHEMISTRY ORDERABLES Performing Organization Address [facility] Co de Phone Number [facility] [address] [place] [address] [phone] * (ABNORMAL) CBC W AUTO DIFFERENTIAL (11/28/2022 4:34 AM CDT) WBC 14.6(H) 3.5 - 10.5 10? 3 /uL 11/28/2022 5:48 AM [facility] RBC 3.49(L) 4.30 - 5.70 10? 6 /uL 11/28/2022 5:48 AM [facility] Hemoglobin 10.7(L) 12.0 - 17.6 g/dL 11/28/2022 5:48 AM [facility] Hematocrit 32.3(L) 35.2 - 51.7 % 11/28/2022 5:48 AM [facility] MCV 92.6 80.7 - 98.3 fL 11/28/2022 5:48 AM [facility] MCH 30.7 26.7 - 34.0 pg 11/28/2022 5:48 AM [facility] MCHC 33.1 30.8 - 35.9 g/dL 11/28/2022 5:48 AM [facility] RDW-SD 53.7(H) 36.0 - 50.0 fL 11/28/2022 5:48 AM [facility] RDW-CV 15.9(H) 11.2 - 14.8 % 11/28/2022 5:48 AM [facility] Platelet Count 244 150 - 400 10? 3 /uL 11/28/2022 5:48 AM [facility] MPV 12.7 9.4 - 12.9 fL 11/28/2022 5:48 AM [facility] nRBC Absolute 0.00 0 10? 3 /uL 11/28/2022 5:48 AM [facility] nRBC Auto 0.0 0 /100 WBC 11/28/2022 5:48 AM [facility] Neutrophils % 67.5 35.0 - 70.0 % 11/28/2022 5:48 AM [facility] Lymphocytes % 20.3 20.0 - 43.0 % 11/28/2022 5:48 AM [facility] Monocytes % 9.8 5.0 - 13.0 % 11/28/2022 5:48 AM [facility] Eosinophils % 1.6 0.0 - 6.0 % 11/28/2022 5:48 AM [facility] Basophil % 0.3 0.0 - 2.0 % 11/28/2022 5:48 AM [facility] Neutrophils Absolute 9.90(H) 1.60 - 7.00 10? 3 /uL 11/28/2022 5:48 AM [facility] Lymphocyte Absolute 2.97 1.10 - 3.90 10? 3 /uL 11/28/2022 5:48 AM CDT [facility] Monocytes Absolute 1.43(H) 0.26 - 1.07 10? 3 /uL 11/28/2022 5:48 AM CDT [facility] Eosinophils Absolute 0.23 0.00 - 0.47 10? 3 /uL 11/28/2022 5:48 AM CDT [facility] Basophils Absolute 0.04 0.00 - 0.08 10? 3 /uL 11/28/2022 5:48 AM CDT [facility] Immature Granulocytes % 0.5 0.0 - 1.0 % 11/28/2022 5:48 AM CDT [facility] Immature Granulocytes Absolute 0.07 11/28/2022 5:48 AM CDT [facility] Blood BLOOD SPECIMEN / Unknown Venipuncture / Unknown 11/28/2022 4:34 AM CDT 11/28/2022 5:13 AM CDT Neville Hewitt III, MD LAB - HEMATOLOGY ORDERABLES [address] [address], [place] [phone] * (ABNORMAL) GLUCOSE - POINT OF CARE (11/27/2022 5:14 PM CDT) [facility] Signature Glucose WB/POC 133(H) 70 - 115 mg/dL 11/27/2022 5:19 PM CDT [facility] Specimen Type Cap Fingerstick 2022 5:19 PM CDT [facility] Blood BLOOD SPECIMEN / Unknown 11/27/2022 5:14 PM CDT 11/27/2022 5:19 PM CDT Stephen Witt MD LAB - POINT OF CARE ORDERABLES [address] [address], [place] [phone] * TSH REFLEX FREE T4 (11/27/2022 3:42 PM CDT) TSH 1.790 0.350 - 4.940 uIU/mL 11/27/2022 4:35 PM CDT [facility] Blood BLOOD SPECIMEN / Unknown Venipuncture / Unknown 11/27/2022 3:42 PM CDT 11/27/2022 3:49 PM CDT Stephen Witt MD LAB - CHEMISTRY ORDERABLES [facility] [address] [place] [address], [facility] [phone] * CT ANGIO CHEST PULM EMBOLISM (11/27/2022 [...] positioned. > Dictated by Ryanne Harris MD (residential recycle driver). IAshwin MD have personally reviewed and interpreted this examination/study. > Interpreting Provider: Ashwin Read MD on 11/27/2022 5:49 PM Narrative 11/27/2022 5:49 PM CDT PROCEDURE: ??CT ANGIO CHEST PULM EMBOLISM, DATE/TIME OF EXAM: ??11/27/2022 2:33 PM, LOCATION ??[facility] INDICATION: R00.0: Sinus tachycardia ADDITIONAL CLINICAL INFORMATION: [...] ANGIO CHEST PULM EMBOLISM, DATE/TIME OF EXAM: :33 PM, LOCATION [facility] INDICATION: R00.0: Sinus tachycardia ADDITIONAL CLINICAL INFORMATION: [...] positioned. > Dictated by Ryanne Harris MD (residential recycle driver). IAshwin MD have personally reviewed and interpreted this examination/study. > Interpreting Provider: Ashwin Read MD on 11/27/2022 5:49 PM [address] Witt MD CT ORDERABLES * (ABNORMAL) GLUCOSE - POINT OF CARE (11/27/2022 11:31 AM CDT) [facility] Glucose WB/POC 136(H) 70 - 115 mg/dL 11/27/2022 11:36 AM CDT [facility] Specimen Type Cap Fingerstick 2022 11:36 AM CDT [facility] Blood BLOOD SPECIMEN / Unknown 11/27/2022 11:31 AM CDT 11/27/2022 11:36 AM CDT Stephen Witt MD LAB - POINT OF CARE ORDERABLES [facility] [address] [place] [address], [facility] [phone] * EKG 12-LEAD (11/27/2022 10:27 AM CDT) [facility] Ventricular Rate 149 BPM [facility] MUSE Atrial Rate 149 BPM [facility] P-R Interval 116 ms [facility] QRS Duration ms 78 ms [facility] Q-T Interval ms 334 ms [facility] QTC Calculation (Bezet) 526 ms [facility] Calculated P [place] 75 degrees [facility] MUSE Calculated R [place] -2 degrees [facility] MUSE Calculated T [place] 94 degrees [facility] MUSE Interpretation EKG SINUS TACHYCARDIA SEPTAL INFARCT , AGE UNDETERMINED ABNORMAL ECG WHEN COMPARED WITH ECG OF 26-NOV-2022 14:50, VENT. RATE HAS INCREASED by [address] LESS ELEVATED IN ANTERIOR LEADS ST NOW DEPRESSED IN LATERAL LEADS Confirmed by RYANNE HARDEN MD ([id number]) on 11/28/2022 8:06:49 AM [facility] MUSE 11/27/2022 10:2 7 AM CDT 11/28/2022 8:06 AM CDT Stephen Witt MD ECG ORDERABLES Performing Organization Address City/[facility]/ZIP Co de Phone Number [facility] * (ABNORMAL) GLUCOSE - POINT OF CARE (11/27/2022 7:45 AM CDT) Glucose WB/POC 128(H) 70 - 115 mg/dL 11/27/2022 7:50 AM CDT [facility] Specimen Type Cap Fingerstick 2022 7:50 AM CDT [facility] Blood BLOOD SPECIMEN / Unknown 11/27/2022 7:45 AM CDT 11/27/2022 7:50 AM CDT Stephen Witt MD LAB - POINT OF CARE ORDERABLES [facility] [address] [place] [address], [facility] [phone] * (ABNORMAL) BLOOD GASES ART + COOX PANEL (11/27/2022 3:28 AM CDT) pH Arterial 7.47(H) 7.35 - 7.45 pH 11/27/2022 3:36 AM CDT [facility] pO2 Arterial 84 80 - 100 mmHg 11/27/2022 3:36 AM CDT [facility] pCO2 Arterial 35 35 - 45 mmHg 3:36 AM CDT [facility] HCO3 Arterial 25.5 20.0 - 30.0 mmol/L 11/27/2022 3:36 AM [facility] BE Arterial 2.1(H) -2.0 - 2.0 mmol/L 11/27/2022 3:36 AM [facility] Oxyhemoglobin Arterial 95.3 % 11/27/2022 3:36 AM [facility] Dexoyhemoglobin (HHB) % 2.0 % 11/27/2022 3:36 AM [facility] Methemoglobin <0.8 0.0 - 2.0 % 11/27/2022 3:36 AM [facility] Carboxyhemoglobin 2.0 0.0 - 2.0 % 2022 3:36 AM [facility] O2 Content Arterial 17.1 Interpret within clinical context ml/dL 11/27/2022 3:36 AM [facility] Hemoglobin by COOX 12.7 12.0 - 17.6 g/dL 11/27/2022 3:36 AM [facility] O2 Saturation Arterial 98 90 - 100 % 11/27/2022 3:36 AM [facility] FI O2 Arterial 25.0 % 11/27/2022 3:36 AM [facility] Blood, arterial ARTERIAL BLOOD SPECIMEN / Unknown Arterial Puncture / Unknown 11/27/2022 3:28 AM T 11/27/2022 3:33 AM [facility] - 11/27/2022 3:36 AM [facility] Carboxyhemoglobin Normal Concentration: Non-smokers: 0-2%; Smokers: 0-9%; Toxic: >20% Stephen Witt MD LAB - BLOOD GAS ES ORDERABLES [facility] [address] [place] [address], [facility] [phone] * MAGNESIUM BLOOD (11/27/2022 3:18 AM [facility]) Magnesium 2.0 1.6 - 2.6 mg/dL 11/27/2022 4:02 AM [facility] Blood BLOOD SPECIMEN / Unknown Venipuncture / Unknown 11/27/2022 3:18 AM CDT 11/27/2022 3:34 AM T Neville Hewitt III, MD LAB - CHEMISTRY ORDERABLES [facility] [address] [place] [address], [facility] [phone] * (ABNORMAL) RENAL FUNCTION PANEL (11/27/2022 3:18 AM T) BUN 8 7 - 26 mg/dL 11/27/2022 4:02 AM [facility] Creatinine 0.45(L) 0.71 - 1.16 mg/dL 11/27/2022 4:02 AM [facility] Sodium 137 136 - 145 mmol/L 11/27/2022 4:02 AM [facility] Potassium 4.2 3.5 - 4.5 mmol/L 11/27/2022 4:02 AM [facility] Chloride 104 98 - 107 mmol/L 11/27/2022 4:02 AM [facility] CO2 22 22 - 29 mmol/L 11/27/2022 4:02 AM [facility] Glucose 115 70 - 115 mg/dL 11/27/2022 4:02 AM [facility] Albumin 2.6(L) 3.4 - 5.0 g/dL 11/27/2022 4:02 AM [facility] Calcium 9.7 8.4 - 10.2 mg/dL 11/27/2022 4:02 AM [facility] Phosphorus 3.0 2.8 - 5.1 mg/dL 11/27/2022 4:02 AM [facility] Anion Gap 15 8 - 18 11/27/2022 4:02 AM [facility] BUN/Creatinine Ratio 18 7 - 23 11/27/2022 4:02 AM [facility] Osmolality Calculated 283 270 - 300 mOsm/kg 11/27/2022 4:02 AM [facility] eGFR by CKD-EPI >90 >=90 mL/min/1.7 3 m2 11/27/2022 4:02 AM CDT [facility] Blood BLOOD SPECIMEN / Unknown Venipuncture / Unknown 11/27/2022 3:18 AM CDT 11/27/2022 3:34 AM CDT Neville Hewitt III, MD LAB - CHEMISTRY ORDERABLES [facility] [address] [place] [address], [facility] [phone] * (ABNORMAL) CBC W AUTO DIFFERENTIAL (11/27/2022 3:18 AM CDT) WBC 15.4(H) 3.5 - 10.5 10? 3 /uL 11/27/2022 3:45 AM [facility] RBC 4.00(L) 4.30 - 5.70 10? 6 /uL 11/27/2022 3:45 AM [facility] Hemoglobin 12.4 12.0 - 17.6 g/dL 11/27/2022 3:45 AM [facility] Hematocrit 37.2 35.2 - 51.7 % 11/27/2022 3:45 AM [facility] MCV 93.0 80.7 - 98.3 fL 11/27/2022 3:45 AM [facility] MCH 31.0 26.7 - 34.0 pg 11/27/2022 3:45 AM [facility] MCHC 33.3 30.8 - 35.9 g/dL 11/27/2022 3:45 AM [facility] RDW-SD 52.8(H) 36.0 - 50.0 fL 11/27/2022 3:45 AM [facility] RDW-CV 15.7(H) 11.2 - 14.8 % 11/27/2022 3:45 AM [facility] Platelet Count 260 150 - 400 10? 3 /uL 11/27/2022 3:45 AM [facility] MPV 12.5 9.4 - 12.9 fL 11/27/2022 3:45 AM [facility] nRBC Absolute 0.00 0 10? 3 /uL 11/27/2022 3:45 AM [facility] nRBC Auto 0.0 0 /100 WBC 11/27/2022 3:45 AM [facility] Neutrophils % 72.2(H) 35.0 - 70.0 % 11/27/2022 3:45 AM [facility] Lymphocytes % 17.7(L) 20.0 - 43.0 % 11/27/2022 3:45 AM [facility] Monocytes % 7.5 5.0 - 13.0 % 11/27/2022 3:45 AM [facility] Eosinophils % 1.8 0.0 - 6.0 % 11/27/2022 3:45 AM [facility] Basophil % 0.2 0.0 - 2.0 % 11/27/2022 3:45 AM [facility] Neutrophils Absolute 11.11(H) 1.60 - 7.00 10? 3 /uL 11/27/2022 3:45 AM [facility] Lymphocyte Absolute 2.73 1.10 - 3.90 10? 3 /uL 11/27/2022 3:45 AM [facility] Monocytes Absolute 1.16(H) 0.26 - 1.07 10? 3 /uL 11/27/2022 3:45 AM [facility] Eosinophils Absolute 0.28 0.00 - 0.47 10? 3 /uL 11/27/2022 3:45 AM [facility] Basophils Absolute 0.03 0.00 - 0.08 10? 3 /uL 11/27/2022 3:45 AM [facility] Immature Granulocytes % 0.6 0.0 - 1.0 % 11/27/2022 3:45 AM [facility] Immature Granulocytes Absolute 0.09 11/27/2022 3:45 AM [facility] Blood BLOOD SPECIMEN / Unknown Venipuncture / Unknown 11/27/2022 3:18 AM CDT 11/27/2022 3:34 AM [facility] Neville Hewitt III, MD LAB - HEMATOLOGY ORDERABLES [facility] [address] [place] [address], [place] [phone] * (ABNORMAL) GLUCOSE - POINT OF CARE (11/27/2022 3:16 AM CDT) Glucose WB/POC 117(H) 70 - 115 mg/dL 11/27/2022 4:26 AM CDT [facility] Specimen Type Venous 11/27/2022 4:26 AM CDT [facility] Blood BLOOD SPECIMEN / Unknown 11/27/2022 3:16 AM CDT 11/27/2022 4:26 AM CDT Stephen Witt MD LAB - POINT OF CARE ORDERABLES [address] [address], [place] [phone] * (ABNORMAL) GLUCOSE - POINT OF CARE (11/27/2022 12:26 AM CDT) Glucose WB/POC 117(H) 70 - 115 mg/dL 11/27/2022 12:31 AM CDT [facility] Specimen Type Cap Fingerstick 2022 12:31 AM CDT [facility] Blood BLOOD SPECIMEN / Unknown 11/27/2022 12:26 AM CDT 11/27/2022 12:31 AM CDT Stephen Witt MD LAB - POINT OF CARE ORDERABLES [address] [address], [place] [phone] * (ABNORMAL) BLOOD GASES ART + COOX PANEL (11/26/2022 8:41 PM CDT) pH Arterial 7.48(H) 7.35 - 7.45 pH 11/26/2022 8:53 PM CDT [facility] pO2 Arterial 123(H) 80 - 100 mmHg 11/26/2022 8:53 PM CDT [facility] pCO2 Arterial 35 35 - 45 mmHg 8:53 PM [facility] HCO3 Arterial 26.1 20.0 - 30.0 mmol/L 11/26/2022 8:53 PM [facility] BE Arterial 2.8(H) -2.0 - 2.0 mmol/L 11/26/2022 8:53 PM [facility] Oxyhemoglobin Arterial 97.0 % 11/26/2022 8:53 PM [facility] Dexoyhemoglobin (HHB) % <1.0 % 11/26/2022 8:53 PM [facility] Methemoglobin 1.3 0.0 - 2.0 % 11/26/2022 8:53 PM [facility] Carboxyhemoglobin 1.6 0.0 - 2.0 % 2022 8:53 PM [facility] O2 Content Arterial 17.8 Interpret within clinical context ml/dL 11/26/2022 8:53 PM [facility] Hemoglobin by COOX 12.9 12.0 - 17.6 g/dL 11/26/2022 8:53 PM [facility] O2 Saturation Arterial 100 90 - 100 % 11/26/2022 8:53 PM [facility] FI O2 Arterial 30.0 % 11/26/2022 8:53 PM [facility] Blood, arterial ARTERIAL BLOOD SPECIMEN / Unknown Arterial Puncture / Unknown 11/26/2022 8:41 PM CDT 11/26/2022 8:48 PM [facility] - 11/26/2022 8:53 PM T Carboxyhemoglobin Normal Concentration: Non-smokers: 0-2%; Smokers: 0-9%; Toxic: >20% Neville Hewitt III, MD LAB - BLOOD GASE S ORDERABLES [facility] [address] [place] [phone], [facility] [phone] * PROCALCITONIN LEVEL (11/26/2022 7:55 PM CDT) PROCALCITONIN <0.02 <=0.10 ng/mL 11/26/2022 9:35 PM CDT [facility] Blood BLOOD SPECIMEN / Unknown Venipuncture / Unknown 11/26/2022 7:55 PM CDT 11/26/2022 8:48 PM CDT Narrative [facility] - 11/26/2022 9:35 PM CDT The change [...] Change in Procalcitonin Calculator is available at [email or web address]-WFN-[email or web address] Box ?? If clinical picture has not improved and PCT remains high, reevaluate and consider treatment failure or other causes. Neville Hewitt III, MD LAB - CHEMISTRY ORDERABLES [facility] [address] [place] [address], [facility] [phone] * (ABNORMAL) CALCIUM IONIZED WHOLE BLOOD (11/26/2022 7:55 PM CDT) [facility] Calcium Ionized 1.35 mmol/L 11/26/2022 8:54 PM CDT [facility] pH 7.48(H) 7.35 - 7.45 pH 11/26/2022 8:54 PM CDT [facility] Ionized Calcium pH Adjusted 1.39(H) 1.19 - 1.34 mmol/L 11/26/2022 8:54 PM CDT [facility] Blood BLOOD SPECIMEN / Unknown Venipuncture / Unknown 11/26/2022 7:55 PM CDT 11/26/2022 8:48 PM CDT Neville Hewitt III, MD LAB - CHEMISTRY ORDERABLES [facility] [address] [place] [address], [facility] [phone] * XR CHEST 1VW PORTABLE (11/26/2022 7:38 PM CDT) Anatomical Region Laterality Modality Chest Radiographic Cynthia ging 11/27/2022 5:08 AM CDT Narrative 11/27/2022 10:33 AM CDT PROCEDURE: ??XR CHEST 1VW PORTABLE, DATE/TIME OF EXAM: ??11/26/2022 7:39 PM, LOCATION ??[facility] INDICATION: R09.02: Hypoxia ADDITIONAL CLINICAL INFORMATION: Ordering [...] noted. Report dictated by Justin Burrell MD (residential recycle driver). I, Shane Mckenzie DO have personally reviewed and interpreted this examination/study. > Interpreting Provider: Shane Mckenzie DO on 11/27/2022 10:33 AM Procedure Note Shane Mckenzie DO - 11/27/2022 PROCEDURE: XR CHEST 1VW PORTABLE, DATE/TIME OF EXAM: 11/26/2022 7:39PM, LOCATION [facility] INDICATION: R09.02: Hypoxia ADDITIONAL CLINICAL INFORMATION: Ordering [...] noted. Report dictated by Justin Burrell MD (residential recycle driver). I, Shane Mckenzie DO have personally reviewed and interpreted this examination/study. > Interpreting Provider: Shane Mckenzie DO on 11/27/2022 10:33 AM Neville Hewitt III, MD DIAGNOSTIC IMAGI NG ORDERABLES * EKG 12-LEAD (11/26/2022 6:55 PM CDT) Ventricular Rate 121 BPM [facility] MUSE Atrial Rate 121 BPM [facility] MUSE P-R Interval 130 ms [facility] MUSE QRS Duration ms 76 ms [facility] MUSE Q-T Interval ms 330 ms [facility] MUSE QTC Calculation (Bezet) 468 ms [facility] MUSE Calculated P [place] 81 degrees [facility] MUSE Calculated R [place] -16 degrees [facility] MUSE Calculated T [place] 92 degrees [facility] MUSE Interpretation EKG SINUS TACHYCARDIA SEPTAL INFARCT , POSSIBLY ACUTE ACUTE ID / STEMI ABNORMAL ECG WHEN COMPARED WITH ECG OF 26-NOV-2022 14:50, VENT. RATE HAS INCREASED by 19 bpm Confirmed by RYANNE HARDEN MD ([id number]) on 11/28/2022 7:36:02 AM [facility] MUSE 11/26/2022 6:55 PM CDT 11/28/2022 7:36 AM CDT Neville Hewitt III, MD ECG ORDERABLES [facility] MUSE * TROPONIN-I HIGH SENSITIVE (11/26/2022 6:40 PM CDT) Troponin I High Sensitive 8 <=35 ng/L 11/26/2022 8:56 PM CDT [facility] Blood BLOOD SPECIMEN / Unknown Venipuncture / Unknown 11/26/2022 6:40 PM CDT 11/26/2022 6:44 PM CDT Neville Hewitt III, MD LAB - CHEMISTRY ORDERABLES Performing Organization Address City/[facility]/ZIP Co de Phone Number [facility] [address] [place], [place] [id number], [facility] [phone] * (ABNORMAL) BLOOD GASES ART + COOX PANEL (11/26/2022 6:40 PM CDT) pH Arterial 7.48(H) 7.35 - 7.45 pH 11/26/2022 6:51 PM CDT [facility] pO2 Arterial 95 80 - 100 mmHg 11/26/2022 6:51 PM CDT [facility] pCO2 Arterial 34(L) 35 - 45 mmHg 6:51 PM CDT [facility] HCO3 Arterial 25.3 20.0 - 30.0 mmol/L 11/26/2022 6:51 PM CDT [facility] BE Arterial 2.1(H) -2.0 - 2.0 mmol/L 11/26/2022 6:51 PM CDT [facility] Oxyhemoglobin Arterial 95.9 % 11/26/2022 6:51 PM CDT [facility] Dexoyhemoglobin (HHB) % 1.4 % 11/26/2022 6:51 PM CDT [facility] Methemoglobin 0.9 0.0 - 2.0 % 11/26/2022 6:51 PM CDT [facility] Carboxyhemoglobin 1.8 0.0 - 2.0 % 2022 6:51 PM CDT [facility] O2 Content Arterial 17.1 Interpret within clinical context ml/dL 11/26/2022 6:51 PM CDT [facility] Hemoglobin by COOX 12.6 12.0 - 17.6 g/dL 11/26/2022 6:51 PM CDT [facility] O2 Saturation Arterial 99 90 - 100 % 11/26/2022 6:51 PM CDT [facility] FI O2 Arterial 30.0 % 11/26/2022 6:51 PM CDT [facility] Blood, arterial ARTERIAL BLOOD SPECIMEN / Unknown Arterial Puncture / Unknown 11/26/2022 6:40 PM CDT 11/26/2022 6:42 PM CDT Narrative [facility] - 11/26/2022 6:51 PM CDT Carboxyhemoglobin Normal Concentration: Non-smokers: 0-2%; Smokers: 0-9%; Toxic: >20% Neville Hewitt III, MD LAB - BLOOD GASE S ORDERABLES [address] [address], [facility] [phone] * PHOSPHORUS BLOOD (11/26/2022 6:40 PM CDT) Phosphorus 3.5 2.8 - 5.1 mg/dL 11/26/2022 8:52 PM CDT [facility] Blood BLOOD SPECIMEN / Unknown Venipuncture / Unknown 11/26/2022 6:40 PM CDT 11/26/2022 6:44 PM CDT Neville Hewitt III, MD LAB - CHEMISTRY ORDERABLES [address] [address], [place] [phone] * MAGNESIUM BLOOD (11/26/2022 6:40 PM CDT) Magnesium 2.1 1.6 - 2.6 mg/dL 11/26/2022 8:52 PM [facility] Blood BLOOD SPECIMEN / Unknown Venipuncture / Unknown 11/26/2022 6:40 PM CDT 11/26/2022 6:44 PM CDT Neville Hewitt III, MD LAB - CHEMISTRY ORDERABLES Performing Organization Address [facility]/ZIP Co de Phone Number [facility] [address] [place] [address], [facility] [phone] * (ABNORMAL) BASIC METABOLIC PANEL (CALCIUM TOTAL) (11/26/2022 6:40 PM CDT) BUN 10 7 - 26 mg/dL 11/26/2022 8:52 PM [facility] Creatinine 0.41(L) 0.71 - 1.16 mg/dL 11/26/2022 8:52 PM [facility] Sodium 139 136 - 145 mmol/L 11/26/2022 8:52 PM [facility] Potassium 4.2 3.5 - 4.5 mmol/L 11/26/2022 8:52 PM [facility] Chloride 109(H) 98 - 107 mmol/L 11/26/2022 8:52 PM [facility] CO2 19(L) 22 - 29 mmol/L 11/26/2022 8:52 PM [facility] Glucose 120(H) 70 - 115 mg/dL 11/26/2022 8:52 PM [facility] Calcium 9.8 8.4 - 10.2 mg/dL 11/26/2022 8:52 PM [facility] Anion Gap 15 8 - 18 11/26/2022 8:52 PM [facility] BUN/Creatinine Ratio 24(H) 7 - 23 11/26/2022 8:52 PM [facility] Osmolality Calculated 288 270 - 300 mOsm/kg 11/26/2022 8:52 PM [facility] eGFR by CKD-EPI >90 >=90 mL/min/1.7 3 m2 11/26/2022 8:52 PM [facility] Blood BLOOD SPECIMEN / Unknown Venipuncture / Unknown 11/26/2022 6:40 PM CDT 11/26/2022 6:44 PM CDT Neville Hewitt III, MD LAB - CHEMISTRY ORDERABLES [facility] [address] [place] [address], [facility] [phone] * (ABNORMAL) CBC W AUTO DIFFERENTIAL (11/26/2022 6:40 PM CDT) WBC 17.4(H) 3.5 - 10.5 10? 3 /uL 11/26/2022 6:50 PM [facility] RBC 4.10(L) 4.30 - 5.70 10? 6 /uL 11/26/2022 6:50 PM [facility] Hemoglobin 12.5 12.0 - 17.6 g/dL 11/26/2022 6:50 PM [facility] Hematocrit 37.2 35.2 - 51.7 % 11/26/2022 6:50 PM [facility] MCV 90.7 80.7 - 98.3 fL 11/26/2022 6:50 PM [facility] MCH 30.5 26.7 - 34.0 pg 11/26/2022 6:50 PM [facility] MCHC 33.6 30.8 - 35.9 g/dL 11/26/2022 6:50 PM [facility] RDW-SD 50.4(H) 36.0 - 50.0 fL 11/26/2022 6:50 PM [facility] RDW-CV 15.6(H) 11.2 - 14.8 % 11/26/2022 6:50 PM [facility] Platelet Count 244 150 - 400 10? 3 /uL 11/26/2022 6:50 PM [facility] MPV 11.9 9.4 - 12.9 fL 11/26/2022 6:50 PM [facility] nRBC Absolute 0.00 0 10? 3 /uL 11/26/2022 6:50 PM [facility] nRBC Auto 0.0 0 /100 WBC 11/26/2022 6:50 PM [facility] Neutrophils % 75.9(H) 35.0 - 70.0 % 11/26/2022 6:50 PM [facility] Lymphocytes % 15.7(L) 20.0 - 43.0 % 11/26/2022 6:50 PM [facility] Monocytes % 6.6 5.0 - 13.0 % 11/26/2022 6:50 PM [facility] Eosinophils % 1.2 0.0 - 6.0 % 11/26/2022 6:50 PM [facility] Basophil % 0.1 0.0 - 2.0 % 11/26/2022 6:50 PM [facility] Neutrophils Absolute 13.21(H) 1.60 - 7.00 10? 3 /uL 11/26/2022 6:50 PM [facility] Lymphocyte Absolute 2.73 1.10 - 3.90 10? 3 /uL 11/26/2022 6:50 PM [facility] Monocytes Absolute 1.14(H) 0.26 - 1.07 10? 3 /uL 11/26/2022 6:50 PM [facility] Eosinophils Absolute 0.20 0.00 - 0.47 10? 3 /uL 11/26/2022 6:50 PM [facility] Basophils Absolute 0.02 0.00 - 0.08 10? 3 /uL 11/26/2022 6:50 PM [facility] Immature Granulocytes % 0.5 0.0 - 1.0 % 11/26/2022 6:50 PM [facility] Immature Granulocytes Absolute 0.08 11/26/2022 6:50 PM [facility] Blood BLOOD SPECIMEN / Unknown Venipuncture / Unknown 11/26/2022 6:40 PM CDT 11/26/2022 6:44 PM CDT Neville Hewitt III, MD LAB - HEMATOLOGY ORDERABLES Performing Organization Address City/State/[facility] Co de Phone Number [facility] [address] [place] [address], [facility] [phone] * CARDIAC EKG ORDER (11/26/2022 3:48 PM CDT) Narrative 11/26/2022 3:48 PM CDT Ordered by an unspecified provider. Scanned Document CARDIAC SERVICES ORD ERABLES * EKG 12-LEAD (11/26/2022 2:50 PM CDT) Ventricular Rate 102 BPM [facility] MUSE Atrial Rate 102 BPM [facility] MUSE P-R Interval 144 ms [facility] MUSE QRS Duration ms 86 ms [facility] MUSE Q-T Interval ms 340 ms [facility] MUSE QTC Calculation (Bezet) 443 ms [facility] MUSE Calculated P [place] 71 degrees [facility] MUSE Calculated R [place] 0 degrees [facility] MUSE Calculated T [place] 78 degrees [facility] MUSE Interpretation EKG SINUS TACHYCARDIA ANTEROSEPTAL INFARCT , AGE UNDETERMINED ST ELEVATION IN ANTEROSEPTAL LEADS ABNORMAL ECG WHEN COMPARED WITH ECG OF 24-NOV-2022 23:44, SERIAL CHANGES OF EVOLVING ANTEROSEPTAL INFARCT ST LESS ELEVATED IN ANTERIOR LEADS VENT. RATE HAS DECREASED by 14 bpm Confirmed by RYANNE HARDEN MD ([id number]) on 11/29/2022 1:04:03 PM [facility] MUSE 11/26/2022 2:50 PM CDT 11/29/2022 1:04 PM CDT Alden Hurtado MD ECG ORDERABLES [facility] MUSE * GLUCOSE - POINT OF CARE (11/26/2022 2:15 PM CDT) Pathologist [facility] Glucose WB/POC 98 70 - 115 mg/dL 11/27/2022 1:48 AM CDT [facility] Specimen Type Cap Fingerstick 2022 1:48 AM CDT [facility] Blood BLOOD SPECIMEN / Unknown 11/26/2022 2:15 PM CDT 11/27/2022 1:48 AM CDT Neville Hewitt III, MD LAB - POINT OF C ARE ORDERABLES Performing Organization Address City/State/[facility] Co de Phone Number [facility] [address] [place] [address], [place] [phone] * PATHOLOGY TISSUE (11/26/2022 12:26 PM CDT) Case Report Surgical Pathology Report ? Case: [id number] ? Authorizing Provider: ??Alden Hurtado MD ?Collected: ? 11/26/2022 12:26 PM ? Ordering Location: ? [facility] 8S ACUTE ? Received: ?11/26/2022 03:05 PM ? Pathologist: ? Naa Meza MD ? Specimen: ?Nasal Contents, right nasal polyps ? 12/01/2022 9:19 AM [facility] Final Diagnosis Nasal contents, right polyp, excision (A): - Benign respiratory mucosa with mild acute and chronic inflammation 12/01/2022 9:19 AM [facility] Microscopic Description and Comment Sections demonstrate bone and polypoid fragments of sinonasal mucosa with lymphocytes, plasma cells and neutrophils. No eosinophils are appreciated. 12/01/2022 9:19 AM [facility] Clinical History The patient is a 62-year-old man with a history of dementia, seizures, chronic aspiration and Zenker's diverticulum status post diverticulectomy, chronic respiratory failure requiring tracheostomy who presented with blood in his trachea and was found to have epistaxis from a antrochoanal polyp. Operative procedure: Right maxillary antrostomy with polypectomy, and right anterior ethmoidectomy 12/01/2022 9:19 AM [facility] PATH[facility] LAB Gross Description The requisition and specimen(s) are identified with the patient's name Mojgan Tabor. Received in formalin, specimen A , are multiple marie, focally hemorrhagic, irregular tissue, cartilage, and bone fragments aggregating to 2.3 x 2.2 x 0.3 cm. Filtered through a biopsy bag and submitted in toto in A1 following decalcification./MF 12/01/2022 9:19 AM [facility] PATH[facility] LAB Pathologist Location at [facility] 12/01/2022 9:19 AM [facility] PATH[facility] Disclaimer The performance characteristics of all immunohistochemical and indirect immunofluorescence stains (if any) cited in this report were determined by the Histopathology Laboratory of [facility]. Some of these tests were developed by [...] the attending (teaching) pathologist. 12/01/2022 9:19 AM [facility] Embedded Images 12/01/2022 9:19 AM [facility] Biopsy, Excision NASAL CONTENTS / Unknown 11/26/2022 12:26 PM CDT 11/26/2022 3:05 PM CDT Comment:Pre-op diagnosis: Polyp of right nasal cavity [J33.0] Alden Hurtado MD LAB - PATHOLOGY/CYTO LOGY ORDERABLES [facility] LAB [address] [place] [address], [facility] [phone] * GLUCOSE - POINT OF CARE (11/26/2022 8:19 AM CDT) Glucose WB/POC 105 70 - 115 mg/dL 11/26/2022 8:24 AM CDT [facility] Specimen Type Arterial 11/26/2022 8:24 AM CDT [facility] Blood BLOOD SPECIMEN / Unknown 11/26/2022 8:19 AM CDT 11/26/2022 8:24 AM CDT Germaine Nails MD LAB - POINT OF CARE ORDERABLES [address] [address], [facility] [phone] * GLUCOSE - POINT OF CARE (11/26/2022 4:58 AM CDT) Glucose WB/POC 93 70 - 115 mg/dL 11/26/2022 4:59 AM CDT [facility] Specimen Type Cap Fingerstick 2022 4:59 AM CDT [facility] Blood BLOOD SPECIMEN / Unknown 11/26/2022 4:58 AM CDT 11/26/2022 4:59 AM CDT Germaine Nails MD LAB - POINT OF CARE ORDERABLES [address] [address], [place] [phone] * MAGNESIUM BLOOD (11/26/2022 3:10 AM CDT) Magnesium 1.6 1.6 - 2.6 mg/dL 11/26/2022 3:57 AM CDT [facility] Blood BLOOD SPECIMEN / Unknown Venipuncture / Unknown 11/26/2022 3:10 AM CDT 11/26/2022 3:17 AM CDT Neville Hewitt III, MD LAB - CHEMISTRY ORDERABLES [facility] [address] [place] [address], [facility] [phone] * (ABNORMAL) RENAL FUNCTION PANEL (11/26/2022 3:10 AM [facility]) BUN 11 7 - 26 mg/dL 11/26/2022 3:57 AM [facility] Creatinine 0.46(L) 0.71 - 1.16 mg/dL 11/26/2022 3:57 AM [facility] Sodium 140 136 - 145 mmol/L 11/26/2022 3:57 AM [facility] Potassium 4.0 3.5 - 4.5 mmol/L 11/26/2022 3:57 AM [facility] Chloride 108(H) 98 - 107 mmol/L 11/26/2022 3:57 AM [facility] CO2 26 22 - 29 mmol/L 11/26/2022 3:57 AM [facility] Glucose 91 70 - 115 mg/dL 11/26/2022 3:57 AM [facility] Albumin 2.6(L) 3.4 - 5.0 g/dL 11/26/2022 3:57 AM [facility] Calcium 10.0 8.4 - 10.2 mg/dL 11/26/2022 3:57 AM [facility] Phosphorus 3.4 2.8 - 5.1 mg/dL 11/26/2022 3:57 AM [facility] Anion Gap 10 8 - 18 11/26/2022 3:57 AM [facility] BUN/Creatinine Ratio 24(H) 7 - 23 11/26/2022 3:57 AM [facility] Osmolality Calculated 289 270 - 300 mOsm/kg 11/26/2022 3:57 AM [facility] eGFR by CKD-EPI >90 >=90 mL/min/1.7 3 m2 11/26/2022 3:57 AM [facility] Blood BLOOD SPECIMEN / Unknown Venipuncture / Unknown 11/26/2022 3:10 AM CDT 11/26/2022 3:17 AM CDT Neville Hewitt III, MD LAB - CHEMISTRY ORDERABLES [facility] [address] [place] [address], [facility] [phone] * (ABNORMAL) CBC W AUTO DIFFERENTIAL (11/26/2022 3:10 AM CDT) WBC 12.7(H) 3.5 - 10.5 10? 3 /uL 11/26/2022 3:24 AM T [facility] RBC 4.09(L) 4.30 - 5.70 10? 6 /uL 11/26/2022 3:24 AM [facility] Hemoglobin 12.5 12.0 - 17.6 g/dL 11/26/2022 3:24 AM [facility] Hematocrit 37.9 35.2 - 51.7 % 11/26/2022 3:24 AM [facility] MCV 92.7 80.7 - 98.3 fL 11/26/2022 3:24 AM [facility] MCH 30.6 26.7 - 34.0 pg 11/26/2022 3:24 AM [facility] MCHC 33.0 30.8 - 35.9 g/dL 11/26/2022 3:24 AM [facility] RDW-SD 52.3(H) 36.0 - 50.0 fL 11/26/2022 3:24 AM [facility] RDW-CV 15.7(H) 11.2 - 14.8 % 11/26/2022 3:24 AM [facility] Platelet Count 194 150 - 400 10? 3 /uL 11/26/2022 3:24 AM [facility] MPV 12.2 9.4 - 12.9 fL 11/26/2022 3:24 AM [facility] nRBC Absolute 0.00 0 10? 3 /uL 11/26/2022 3:24 AM [facility] nRBC Auto 0.0 0 /100 WBC 11/26/2022 3:24 AM [facility] Neutrophils % 66.1 35.0 - 70.0 % 11/26/2022 3:24 AM [facility] Lymphocytes % 21.6 20.0 - 43.0 % 11/26/2022 3:24 AM [facility] Monocytes % 9.6 5.0 - 13.0 % 11/26/2022 3:24 AM T [facility] Eosinophils % 2.1 0.0 - 6.0 % 11/26/2022 3:24 AM T [facility] Basophil % 0.2 0.0 - 2.0 % 11/26/2022 3:24 AM T [facility] Neutrophils Absolute 8.39(H) 1.60 - 7.00 10? 3 /uL 11/26/2022 3:24 AM [facility] Lymphocyte Absolute 2.74 1.10 - 3.90 10? 3 /uL 11/26/2022 3:24 AM T [facility] Monocytes Absolute 1.22(H) 0.26 - 1.07 10? 3 /uL 11/26/2022 3:24 AM T [facility] Eosinophils Absolute 0.27 0.00 - 0.47 10? 3 /uL 11/26/2022 3:24 AM T [facility] Basophils Absolute 0.02 0.00 - 0.08 10? 3 /uL 11/26/2022 3:24 AM [facility] Immature Granulocytes % 0.4 0.0 - 1.0 % 11/26/2022 3:24 AM [facility] Immature Granulocytes Absolute 0.05 11/26/2022 3:24 AM [facility] Blood BLOOD SPECIMEN / Unknown Venipuncture / Unknown 11/26/2022 3:10 AM CDT 11/26/2022 3:17 AM CDT Neville Hewitt III, MD LAB - HEMATOLOGY ORDERABLES [facility] [address] [place] [address], [facility] [phone] * (ABNORMAL) CBC W/O DIFFERENTIAL (11/26/2022 3:10 AM CDT) WBC 12.7(H) 3.5 - 10.5 10? 3 /uL 11/26/2022 3:24 AM [facility] RBC 4.09(L) 4.30 - 5.70 10? 6 /uL 11/26/2022 3:24 AM [facility] Hemoglobin 12.5 12.0 - 17.6 g/dL 11/26/2022 3:24 AM [facility] Hematocrit 37.9 35.2 - 51.7 % 11/26/2022 3:24 AM [facility] MCV 92.7 80.7 - 98.3 fL 11/26/2022 3:24 AM [facility] MCH 30.6 26.7 - 34.0 pg 11/26/2022 3:24 AM [facility] MCHC 33.0 30.8 - 35.9 g/dL 11/26/2022 3:24 AM [facility] RDW-SD 52.3(H) 36.0 - 50.0 fL 11/26/2022 3:24 AM [facility] RDW-CV 15.7(H) 11.2 - 14.8 % 11/26/2022 3:24 AM [facility] Platelet Count 194 150 - 400 10? 3 /uL 11/26/2022 3:24 AM [facility] MPV 12.2 9.4 - 12.9 fL 11/26/2022 3:24 AM [facility] nRBC Absolute 0.00 0 10? 3 /uL 11/26/2022 3:24 AM [facility] nRBC Auto 0.0 0 /100 WBC 11/26/2022 3:24 AM [facility] Blood BLOOD SPECIMEN / Unknown Venipuncture / Unknown 11/26/2022 3:10 AM CDT 11/26/2022 3:17 AM T Neville Hewitt III, MD LAB - HEMATOLOGY ORDERABLES Performing Organization Address City/State/[facility] Co de Phone Number [facility] [address] [place] [address], [place] [phone] * GLUCOSE - POINT OF CARE (11/26/2022 12:16 AM CDT) Glucose WB/POC 89 70 - 115 mg/dL 11/26/2022 12:17 AM CDT [facility] Specimen Type Cap Fingerstick 2022 12:17 AM CDT [facility] Blood BLOOD SPECIMEN / Unknown 11/26/2022 12:16 AM CDT 11/26/2022 12:17 AM CDT Germaine Nails MD LAB - POINT OF CARE ORDERABLES [address] [address], [place] [phone] * GLUCOSE - POINT OF CARE (11/25/2022 6:52 PM CDT) Pathologist [facility] Glucose WB/POC 106 70 - 115 mg/dL 11/25/2022 6:56 PM CDT [facility] Specimen Type Cap Fingerstick 2022 6:56 PM CDT [facility] Blood BLOOD SPECIMEN / Unknown 11/25/2022 6:52 PM CDT 11/25/2022 6:56 PM CDT Neville Hewitt III, MD LAB - POINT OF C ARE ORDERABLES [facility] [address] [place] [id number], [place] [phone] * (ABNORMAL) MRSA DNA PCR (11/25/2022 10:22 AM CDT) Pathologist [facility] MRSA DNA by PCR Detected( A) Not detected 11/25/2022 3:48 PM CDT [facility] MICROBIOLOGY Microbiology SPECIMEN FROM [facility] / Unknown Collection / Unknown 11/25/2022 10:22 AM CDT 11/25/2022 10:30 AM CDT Narrative [facility] MICROBIOLOGY - 11/25/2022 3:48 PM CDT 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 Arthur Marinelli MD LAB - MICROBIOLOGY ORDERABLES [facility] MICROBIOLOGY [address] [place] [address], [facility] [phone] * CT SINUS WWO CONTRAST (11/25/2022 6:36 [...] > Dictated by Christian Yañez DO (residential recycle driver). I, Jason Sanchez MD have personally reviewed [...] > Dictated by Christian Yañez DO (residential recycle driver). I, Jason Sanchez MD have personally reviewed [...] Dictated by Usman Arce MD, MD (residential recycle driver). IByron. Manas Read MD have personally reviewed and interpreted this examination/study. > Interpreting Provider: Ashwin Read MD on 11/25/2022 11:20 AM Narrative 11/25/2022 11:20 AM CDT PROCEDURE: ??CT CHEST W CONTRAST, DATE/TIME OF EXAM: ??11/25/2022 6:37 AM, LOCATION ??[facility] INDICATION: R04.2: Hemoptysis ADDITIONAL CLINICAL INFORMATION: Ordering [...] DATE/TIME OF EXAM: 11/25/2022 6:37 AM, LOCATION [facility] INDICATION: R04.2: Hemoptysis ADDITIONAL CLINICAL INFORMATION: Ordering [...] tracheostomytube. > Dictated by Usman Arce MD, (residential recycle driver). IAshwin MD have personally reviewed and interpreted this examination/study. > Interpreting Provider: Ashwin Read MD on 11/25/2022 11:20 AM Arthur Marinelli MD CT ORDERABLES * MAGNESIUM BLOOD (11/25/2022 3:35 AM CDT) Magnesium 1.7 1.6 - 2.6 mg/dL 11/25/2022 4:08 AM CDT [facility] Blood BLOOD SPECIMEN / Unknown Venipuncture / Unknown 11/25/2022 3:35 AM CDT 11/25/2022 3:44 AM CDT Arthur Marinelli MD LAB - CHEMISTRY ORD ERABLES [facility] [address] [place] [address], [facility] [phone] * (ABNORMAL) COMPREHENSIVE METABOLIC PANEL (11/25/2022 3:35 AM [facility]) BUN 16 7 - 26 mg/dL 11/25/2022 4:08 AM [facility] Creatinine 0.45(L) 0.71 - 1.16 mg/dL 11/25/2022 4:08 AM [facility] Sodium 138 136 - 145 mmol/L 11/25/2022 4:08 AM [facility] Potassium 4.5 3.5 - 4.5 mmol/L 11/25/2022 4:08 AM [facility] Chloride 108(H) 98 - 107 mmol/L 11/25/2022 4:08 AM [facility] CO2 26 22 - 29 mmol/L 11/25/2022 4:08 AM [facility] Glucose 91 70 - 115 mg/dL 11/25/2022 4:08 AM [facility] Calcium 9.5 8.4 - 10.2 mg/dL 11/25/2022 4:08 AM [facility] Protein Total 6.9 6.0 - 8.3 g/dL 11/25/2022 4:08 AM [facility] Albumin 2.6(L) 3.4 - 5.0 g/dL 11/25/2022 4:08 AM [facility] Bilirubin Total 0.2 0.2 - 1.2 mg/dL 11/25/2022 4:08 AM [facility] Alkaline Phosphatase 85 40 - 150 U/L 11/25/2022 4:08 AM [facility] ALT 24 5 - 55 U/L 11/25/2022 4:08 AM [facility] AST 24 5 - 34 U/L 11/25/2022 4:08 AM [facility] Anion Gap 9 8 - 18 11/25/2022 4:08 AM [facility] BUN/Creatinine Ratio 36(H) 7 - 23 11/25/2022 4:08 AM [facility] Osmolality Calculated 287 270 - 300 mOsm/kg 11/25/2022 4:08 AM T [facility] Albumin/Globulin Ratio 0.6(L) 1.1 - 2.3 11/25/2022 4:08 AM T [facility] eGFR by CKD-EPI >90 >=90 mL/min/1.7 3 m2 11/25/2022 4:08 AM T [facility] Blood BLOOD SPECIMEN / Unknown Venipuncture / Unknown 11/25/2022 3:35 AM CDT 11/25/2022 3:44 AM CDT Arthur Marinelli MD LAB - CHEMISTRY ORD ERABLES Performing Organization Address City/[facility]/ZIP Co de Phone Number [address] [address], [place] [phone] * TYPE + SCREEN PANEL (11/25/2022 12:15 AM CDT) Antibody Screen NEG 1:17 AM CDT [facility] ABO Rh O POS 11/25/2022 1:17 AM CDT [facility] Blood Bank BLOOD SPECIMEN / Unknown Venipuncture / Unknown 11/25/2022 12:15 AM CDT 11/25/2022 12:21 AM CDT Arthur Marinelli MD LAB - BLOOD BANK OR DERABLES [facility] [address] [place] [address], [place] [phone] * URINALYSIS REFLEX MICROSCOPIC REFLEX CULTURE (11/25/2022 12:05 AM CDT) Color UA Yellow Straw, Yellow 11/25/2022 12:16 AM CDT [facility] Clarity UA Clear Clear 11/25/2022 12:16 AM CDT [facility] Specific [place] UA 1.009 1.005 - 1.030 11/25/2022 12:16 AM T [facility] pH UA 8.0 5.0 - 8.0 pH 11/25/2022 12:16 AM CDT [facility] Protein UA Negative Negative 11/25/2022 12:16 AM CDT [facility] Glucose UA Negative Negative 11/25/2022 12:16 AM CDT [facility] Ketone UA Negative Negative 11/25/2022 12:16 AM CDT [facility] Bilirubin UA Negative Negative 11/25/2022 12:16 AM CDT [facility] Blood UA Negative Negative 11/25/2022 12:16 AM CDT [facility] Nitrite UA Negative Negative 11/25/2022 12:16 AM CDT [facility] Leukocyte Esterase Negative Negative 11/25/2022 12:16 AM CDT [facility] Urobilinogen UA Negative Negative mg/dL 11/25/2022 12:16 AM CDT [facility] Comment UA Microscopic not indicated. 11/25/2022 12:16 AM CDT [facility] Urine URINE SPECIMEN OBTAINED BY CLEAN CATCH PROCEDURE / Unknown Collection / Unknown 11/25/2022 12:05 AM CDT 11/25/2022 12:10 AM CDT Narrative [facility] - 11/25/2022 12:16 AM CDT Arthur Marinelli MD LAB - URINALYSIS OR DERABLES Performing Organization Address City/State/[facility] Co de Phone Number [facility] [address] [place] [address], [facility] [phone] * XR CHEST 1VW PORTABLE (11/24/2022 11:59 PM CDT) Anatomical Region Laterality Modality Chest Radiographic Cynthia ging 11/25/2022 12:1 1 AM CDT Narrative 11/25/2022 11:25 AM CDT PROCEDURE: ??XR CHEST 1VW PORTABLE, DATE/TIME OF EXAM: ??11/24/2022 11:59 PM, LOCATION ??[facility] INDICATION: R04.2: Hemoptysis ADDITIONAL CLINICAL INFORMATION: Ordering [...] intact. Report dictated by Scar Oliveira MD (residential recycle driver). Rachel Thomason MD have personally reviewed and interpreted this examination/study. > Interpreting Provider: Rachel Phillips MD on 11/25/2022 11:25 AM Procedure Note Rachel Phillips MD - 11/25/2022 PROCEDURE: XR CHEST 1VW PORTABLE, DATE/TIME OF EXAM: 11/24/2022 11:59PM, LOCATION [facility] INDICATION: R04.2: Hemoptysis ADDITIONAL CLINICAL INFORMATION: Ordering [...] intact. Report dictated by Scar Oliveira MD (residential recycle driver). Rachel Thomason MD have personally reviewed and interpreted this examination/study. > Interpreting Provider: Rachel Phillips MD on 11/25/2022 11:25 AM Arthur Marinelli MD DIAGNOSTIC IMAGING ORDERABLES * (ABNORMAL) CBC W AUTO DIFFERENTIAL (11/24/2022 11:47 PM CDT) WBC 10.5 3.5 - 10.5 10? 3 /uL 11/25/2022 12:02 AM [facility] RBC 3.75(L) 4.30 - 5.70 10? 6 /uL 11/25/2022 12:02 AM [facility] Hemoglobin 11.5(L) 12.0 - 17.6 g/dL 11/25/2022 12:02 AM [facility] Hematocrit 35.9 35.2 - 51.7 % 11/25/2022 12:02 AM [facility] MCV 95.7 80.7 - 98.3 fL 11/25/2022 12:02 AM [facility] MCH 30.7 26.7 - 34.0 pg 11/25/2022 12:02 AM [facility] MCHC 32.0 30.8 - 35.9 g/dL 11/25/2022 12:02 AM [facility] RDW-SD 54.8(H) 36.0 - 50.0 fL 11/25/2022 12:02 AM [facility] RDW-CV 15.9(H) 11.2 - 14.8 % 11/25/2022 12:02 AM [facility] Platelet Count 225 150 - 400 10? 3 /uL 11/25/2022 12:02 AM [facility] MPV 12.2 9.4 - 12.9 fL 11/25/2022 12:02 AM [facility] nRBC Absolute 0.04(H) 0 10? 3 /uL 11/25/2022 12:02 AM [facility] nRBC Auto 0.4(H) 0 /100 WBC 11/25/2022 12:02 AM [facility] Neutrophils % 64.3 35.0 - 70.0 % 11/25/2022 12:02 AM [facility] Lymphocytes % 21.5 20.0 - 43.0 % 11/25/2022 12:02 AM [facility] Monocytes % 9.7 5.0 - 13.0 % 11/25/2022 12:02 AM [facility] Eosinophils % 3.6 0.0 - 6.0 % 11/25/2022 12:02 AM [facility] Basophil % 0.3 0.0 - 2.0 % 11/25/2022 12:02 AM CDT [facility] Neutrophils Absolute 6.75 1.60 - 7.00 10? 3 /uL 11/25/2022 12:02 AM [facility] Lymphocyte Absolute 2.26 1.10 - 3.90 10? 3 /uL 11/25/2022 12:02 AM [facility] Monocytes Absolute 1.02 0.26 - 1.07 10? 3 /uL 11/25/2022 12:02 AM [facility] Eosinophils Absolute 0.38 0.00 - 0.47 10? 3 /uL 11/25/2022 12:02 AM T [facility] Basophils Absolute 0.03 0.00 - 0.08 10? 3 /uL 11/25/2022 12:02 AM [facility] Immature Granulocytes % 0.6 0.0 - 1.0 % 11/25/2022 12:02 AM [facility] Immature Granulocytes Absolute 0.06 11/25/2022 12:02 AM [facility] Blood BLOOD SPECIMEN / Unknown Venipuncture / Unknown 11/24/2022 11:47 PM CDT 11/24/2022 11:55 PM CDT Arthur Marinelli MD LAB - HEMATOLOGY OR DERABLES Performing Organization Address [facility] Co de Phone Number [facility] [address] [place] [address], [facility] [phone] * EKG 12-LEAD (11/24/2022 11:44 PM CDT) Ventricular Rate 116 BPM SL MUSE Atrial Rate 116 BPM [facility] P-R Interval 150 ms [facility] QRS Duration ms 78 ms [facility] Q-T Interval ms 306 ms [facility] QTC Calculation (Bezet) 425 ms [facility] Calculated P [place] 54 degrees [facility] Calculated R [place] 5 degrees [facility] Calculated T [place] 67 degrees [facility] Interpretation EKG SINUS TACHYCARDIA ST ELEVATION, CONSIDER EARLY REPOLARIZATION , PERICARDITIS, OR INJURY Early ??transition ABNORMAL ECG WHEN COMPARED WITH ECG OF 09-OCT-2022 10:59, VENT. RATE HAS DECREASED by [address] LESS ELEVATED IN ANTERIOR LEADS CRITERIA FOR ANTERIOR INFARCT ARE NO LONGER PRESENT Confirmed by RYANNE HARDEN MD ([id number]) on 11/26/2022 1:23:14 PM [facility] IRINEO 11/24/2022 11:4 4 PM CDT 11/26/2022 1:23 PM CDT Arthur Marinelli MD ECG ORDERABLES [facility] IR[facility] documented in this encounter Visit Diagnoses Diagnosis Hemoptysis Nasal polyp Unspecified nasal polyp Pneumonia [...] status Sinus tachycardia Other specified cardiac dysrhythmias Polyp of right nasal cavity documented in this encounter Administered Medications Inactive [...] Intracatheter, EVERY 8 HOURS, First dose on Tue11/25/22 at 1400, Until Discontinued, Flush peripheral IV [...] AM CDT 650 mg G Tu be aspirin chew tablet 81 mg 81 mg, [...] 9:28 PM CDT 40 mg G Tube cloBAZam (Onfi) tablet 20 mg 20 mg, Enteral Tube, 2 TIMES DAILY, First dose on Tue11/25/22 at 2100, Until Discontinued $ Given 12/16/2022 10:53 AM CDT 20 mg J Tube $ Given 12/15/2022 8:08 PM CDT 20 mg G Tube $ Given 12/15/2022 9:12 AM CDT 20 mg J Tube divalproex sprinkle (Depakote Sprinkle) capsule 500 mg 500 mg, Enteral Tube, EVERY 6 HOURS, First dose on Marian 11/25/22 at 1315, Until Discontinued, Do not crush or chew sprinkle beads. $ Given 12/16/2022 6:34 PM CDT 500 mg J Tube $ Given 12/16/2022 2:42 PM CDT 500 mg J Tube $ Given 12/16/2022 5:36 AM CDT 500 mg G Tube folic acid (Folvite) tablet [...] does not have swallowing difficulties, Starting on Tue11/25/22 at 1736, Until Tue12/16/22 at 2245, If [...] dose on Tue11/25/22 at 1315, Until Discontinued $ Given 12/16/2022 [...] PM CDT 5,000 Units A bdominal Tissue lacosamide (Vimpat) tablet 200 mg 200 mg, Enteral Tube, 2 TIMES DAILY, First dose on Tue11/25/22 at 2100, Until Discontinued $ Given 12/16/2022 10:55 AM CDT 200 mg J Tube $ Given 12/15/2022 8:08 PM CDT 200 mg G Tube $ Given 12/15/2022 9:12 AM CDT 200 mg J Tube levalbuterol (Xopenex) nebulizer solution 1.25 mg 1.25 [...] 9:17 AM CDT 2,000 mg J Tube metoprolol tartrate IR (Lopressor) tablet 25 mg 25 mg, Enteral Tube, 2 TIMES DAILY, First dose (after last modification) on Tue11/29/22 at 1200, Until Discontinued $ Given 12/16/2022 10:49 AM CDT 25 mg G Tu be $ Given 12/15/2022 8:08 PM CDT 25 mg G Tube $ Given 12/15/2022 9:12 AM CDT 25 mg J Tube oxymetazoline (Afrin) 0.05 % nasal spray PRN, Starting on Tue11/26/22 at 1219, Until Tue11/26/22 at 1315, Intra-op $ Given 11/26/2022 12:19 PM CDT 1 bottles Operative Site polyethylene glycol 3350 (Miralax) packet 17 g [...] 9:33 AM CDT 17 g G Tube sodium chloride (Inhalant) 7 % nebulizer solution 4 mL 4 mL, Inhalation, EVERY 6 HOURS, First dose on Tue12/07/22 at 0130, Until Discontinued, With Sputum Induction $ Given 12/16/2022 4:50 PM CDT 4 mL $ Given 12/16/2022 12:42 PM CDT 4 mL $ Given 12/16/2022 4:20 AM CDT 4 mL tamsulosin (Flomax) capsule 0.4 mg 0.4 mg, Enteral Tube, DAILY, First dose on 11/27/22 at 0900, Until Discontinued, At the same [...] 9:33 AM CDT 0.4 mg G Tube thiamine (Vitamin B-1) tablet 100 mg 100 mg, Enteral Tube, DAILY, First dose on Marian 11/25/22 at 1315, Until Discontinued $ Given 12/16/2022 10:54 AM CDT 100 mg J Tu be $ Given 12/15/2022 9:12 AM CDT 100 mg J Tube $ Given 12/14/2022 9:33 AM CDT 100 mg G Tube documented in this encounter [...] Infusing)1309 ($ Given - Provider: Apple Lovell RN)212 (Not Administered - Provider: Cony Estrella RN - Reason: IV Currently Infusing) 0600 ($ Given - Provider: Cony Estrella RN)1338 ($ Given - Provider: Apple Lovell RN)2027 ($ Given - Provider: Armando Villalta RN) 0534 ($ Given - Provider: Armando Villalta [...] dose on Tue11/25/22 at 2100, Until Discontinued 09 ($ Given - Provider: Apple Lovell RN)2120 [...] Lovell RN)1714 ($ Given - Provider: Apple Nas, RN)2359 ($ Given - Provider: Cony Estrella RN) 0559 ($ Given - Provider: Cony Estrella RN)1337 ($ Given - Provider: Apple Lovell RN)1743 ($ Given - Provider: Yana Todd, RN) 0027 ($ Given - Provider: Armando [...] Lovell RN)1743 ($ Given - Provider: Yana Todd, RN) 0027 ($ Given - Provider: Armando Villalta, ALFRED)0534 ($ Given - Provider: Armando Villalta RN)1446 ($ Given - Provider: Zulma Mansfield RN)1834 ($ Given - Provider: Zulma Mansfield RN) heparin injection 5,000 Units 5,000 Units, Subcutaneous, EVERY 8 HOURS, First dose on Tue12/14/22 at 2200, Until Discontinued 2120 ($ Given - Provider: Cony Estrella RN) 06 ($ Given - Provider: Cony Estrella RN)1338 ($ Given - Provider: Apple Lovell RN)202 ($ Given - Provider: Armando Villalta, ALFRED) 0535 ($ Given - Provider: Armando Villalta, ALFRED)1442 ($ Given - Provider: Zulma Mansfield, ALFRED) lacosamide (Vimpat) tablet 200 mg 200 mg, Enteral Tube, 2 TIMES DAILY, First dose on Tue11/25/22 at 2100, Until Discontinued 0933 ($ Given - Provider: Apple Lovell RN)2120 ($ Given - Provider: Cony Estrella RN) 0912 ($ Given - Provider: Apple Lovell RN)2008 ($ Given - Provider: Armando Villalta RN) [...] RN) 0917 ($ Given - Provider: Apple Lovell, RN)2023 ($ Given - Provider: Armando Villalta, RN) 105 ($ Given - Provider: Zulma Mansfield, ALFRED) [...] Lovell, RN)2007 ($ Given - Provider: Armando Villalta, ALFRED) 1049 ($ Given - Provider: Zulma Mansfield, ALFRED) polyethylene glycol 3350 (Miralax) packet 17 [...] 0013 ($ Given - Provider: Lynne Eastman [facility])0451 ($ Given - Provider: Lynne Eastman [facility])1135 ($ Given - Provider: Ursula Garcia [facility])1639 ($ Given - Provider: Ursula Garcia [facility])2319 ($ Given - Provider: Saloni Mortensen [facility]) 0420 ($ Given - Provider: Yayo Arauz [facility])1242 ($ Given - Provider: Sandra Cesar [facility])1650 ($ Given - Provider: Sandra Cesar [facility]) tamsulosin (Flomax) capsule 0.4 mg 0.4 mg, [...] - New Order - Provider: Apple Lovell RN)1400 (Stopped - Provider: Apple Lovell RN) PRN Medication Order 12/14/2022 12/15/2022 12/16/2022 0.9% NaCl injection 1-10 mL(Linked Group 1) 1-10 mL, Intracatheter, PRN, Other, peripheral line flush, Starting on Tue11/25/22 at 1112, Until Tue12/16/22 at 2245, Flush peripheral IV catheter with [...] NPO and withOUT IV Access, Starting on Tue11/25/22 at 1736, Until Tue12/16/22 at 2245, If NOT able to eat [...] PRN, Starting on Tue12/14/22 at 1540, Until 12/14/22 at 1540, Intra-op 1540 ($ Given - [...] iso, ES 06/29/2022 06/11/2023 06/13/2023 10:14 AM AVIONIC TECHNICIAN RESIST ACB 09/18/2022 11/28/2022 MDRO 09/18/2022 06/11/2023 documented as of this encounter Care Teams Criminal Intelligence Specialist Relationship Specialty Start Date End Date Joyce Luevano, TOBACCO EDUCATOR-FOOD CHEMIST [address] [place] [phone] PCP - General 03/08/22 11/17/23 Elizabeth Sullivan, RN Immigration Manager 10/14/17 documented as of this encounter
--- OUTSIDE RECORDS SUMMARY | 2024-06-08 05:33 | XMS_ITS | Encounter Summary ---
Author Organization [facility] Health Address [address] [address] Care Team Providers Care Mate Fourth Name Role Phone Elizabeth Sullivan RN Unavailable [phone] Joyce Luevano PASSENGER BRAKEMAN-MANDARIN TUTOR Primary Care Provider [phone] Reason for Visit * Reason Onset Date Comments MEDICATION REFILL 11/11/2022 Encounter Details Date Type Department Care Team (Late st Contact Info) Description 11/11/2022 Refill [facility] - Neurology [address] [place] [phone] Yana Rm APRN-CNP [address] [place] [address] MEDICATION REFILL Social History Tobacco [...] medical care, and heating? Patient declined 08/29/2022 [facility] - Occupational [...] [place] (including now)? 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
--- OUTSIDE RECORDS SUMMARY | 2024-06-08 05:33 | XMS_ITS | Encounter Summary ---
Author Organization [facility] Health Address [address] [place] [address] Care Team Providers Care Pipe Jeeper Name Role Phone Elizabeth Sullivan RN Unavailable [phone] Joyce Luevano RETAIL BANKING MANAGER-ELEVATOR INSTALLER Primary Care Provider [phone] Reason for Visit * Reason Onset Date Comments MEDICATION REFILL 11/11/2022 Encounter Details Date Type Department Care Team (Late st Contact Info) Description 11/11/2022 Refill [facility]rology [address] [place] [phone] Yana Rm APRN-CNP [address] [place] [address] MEDICATION REFILL Social History Tobacco [...] medical care, and heating? Patient declined 08/29/2022 [facility]at ional [facility] - [...] in a care home (including now)? No 08/29/2022 Sex and [...] Yes 08/29/2022 documented as of this encounter Miscellaneous Notes * Telephone Encounter - Michaela Bass RN - 11/11/2022 2:55 PM CDT Spoke with Vicky at the patient's facility and [facility] and [facility] needs medications now. Not using the [facility]. [facility] like 7 [facility]sof [facility] and [facility] Will forward to BOUCHRA Rm in two separate refill requests. documented in this encounter Plan of Treatment Upcoming Encounters Date Type Department Care Team (Late st Contact Info) Description 12/05/2024 1:00 PM CDT Office Visit 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
--- OUTSIDE RECORDS SUMMARY | 2024-06-08 05:33 | XMS_ITS | Encounter Summary ---
Author Organization [facility] Health Address [address] [address] Care Team Providers Care Bleach Liquor Maker Name Role Phone Elizabeth Sullivan RN Unavailable [phone] Joyce Luevano TOBACCO DIPPER-DIETITIAN CONSULTANT Primary Care Provider [phone] Reason for Visit * Reason Onset Date Comments Medication Prior Auth Request 11/11/2022 Encounter Details Date Type Department Care Team (Late st Contact Info) Description 11/11/2022 Telephone [facility] [place] [address] Yana Rm APRN-CNP [address] [place] [address] Medication Prior Auth Request Social [...] medical care, and heating? Patient declined 08/29/2022 [facility] of Occupat ional Health - Occupational Stress [...] slept in a prison (including now)? No 08/29/2022 Sex and Gender [...] Encounter - Michaela Bass RN - 11/11/2022 3:56 PM CDT PA cancelled for levetiracetam. Not needed. * Telephone Encounter - Michaela Bass RN - 11/11/2022 3:49 PM CDT PA initiated with [employer] via covermymeds for levetiracetam #28. Included last visit note dated 05/06/2022. Will await a response. 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
--- OUTSIDE RECORDS SUMMARY | 2024-06-08 05:33 | XMS_ITS | Encounter Summary ---
Author Organization [facility] Health Address [address] [place] [address] Care Team Providers Care Manufacturers Representative Name Role Phone Elizabeth Sullivan RN Unavailable [phone] Joyce Luevano J2EE CONSULTANT-PUBLIC WEIGHER Primary Care Provider [phone] Encounter Details Date Type Department Care Team (Late st Contact Info) Description 11/11/2022 Orders Only [facility] [address] [place] [phone] Yana Rm APRN-CNP [address] [place] [address] Social History Tobacco Use Types [...] medical care, and heating? Patient declined 08/29/2022 [facility] Occupat ional Health - Occupational Stress [...] slept in a penitentiary (including now)? 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
--- OUTSIDE RECORDS SUMMARY | 2024-06-08 05:33 | XMS_ITS | Encounter Summary ---
Author Organization [facility] Health Address [address] [place] [address] Care Team Providers Care Milk Of Lime Slaker Name Role Phone Elizabeth Sullivan RN Unavailable Joyce Luevano CITRUS PICKER-DIE BAKER Primary Care Provider [phone] Reason for Visit * Reason Onset Date Comments MEDICATION REFILL 11/11/2022 Encounter Details Date Type Department Care Team (Late st Contact Info) Description 11/11/2022 Refill [facility] [address] [place] [phone] Yana Rm APRN-CNP [address] [place] [address] MEDICATION REFILL Social History Tobacco [...] medical care, and heating? Patient declined 08/29/2022 [facility] of Occupat ional Health - [...] slept in a custodial (including now)? No 08/29/2022 Sex and Gender [...] Encounter - Michaela Bass RN - 11/11/2022 2:59 PM CDT Spoke with Vicky at the patient's facility and they [facility] and he needs medications now. Not using the [facility] Would like 7 daysof meds sent to [facility] and [facility]. Will forward to BOUCHRA Rm in two separate refill requests. 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, not intractable, without status epilepticus (HCC)- Primary documented in this encounter Additional Health Concerns Infection Onset Date Last Indicated Resolved Time 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
--- OUTSIDE RECORDS SUMMARY | 2024-06-08 05:35 | XMS_ITS | Encounter Summary ---
Author Organization [facility] Health Address [address] [place] [address] Care Team Providers Care Fence Post Cutter Name Role Phone Elizabeth Sullivan RN Unavailable [phone] [employer] PROGRAMMER[employer]SUPERVISOR [employer] Primary Care Provider [phone] Reason for Visit * Reason Comments Chronic Lung [facility] diminished lung sounds per NH on R side with hx of atelectasis and CVA with trach present. Pt arrives maintaining saturation on 2L non-humidified O2 * Auth/Cert (Routine) Specialty Diagnoses / Procedures Referred By Contac t Referred To Contact Referral ID Status Reason Start Date Expiration Date Visits Re quested Visits Authorized [id number] 1 1 Encounter Details Date Type Department Care Team (Late st Contact Info) Description 08/28/2022 10:57 AM CDT - 11/09/2022 4:40 PM CDT Hospital Encounter [facility] [address] [place] [id number] Leonardo Clarke MD [address] [facility] [place] [address] Ilir Mckenzie MD [address] DIV OF PULMONARY/[place] [address] Artemio Abarca MD [address] DIV OF PULMONARY/[place] [address] Blair Bacon MD [address] DIV OF PULMONARY/[place] [address] Juan Diego Garcia MD [address] DIV OF PULMONARY/[place] [address] Petra Fuentes MD [address] DIV OF [facility] [place] [address] Amanda Rojo MD [address] DIV OF [facility] [place] [address] Westley Corley MD [address] [place] [address] Yasmani Vigil MD [address] [place] [address] Artur Mcgraw MD [address] [place] [address] Venessa Rosado DO [address] [place] [address] Bhavesh Easley MD [address] DIV OF [facility] [address] Ck Mccurdy MD [address] [place] [address] Vicky Silva MD [address] [place] [address] Hospitalist Discharge Disposition: Nursing Facility:Medicaid Social History Tobacco [...] care, and heating? Patient declined 08/29/2022 [facility] - Occupational Stress [...] slept in a long-term (including now)? No 08/29/2022 Sex and Gender Information Value Date Recorded Sex Assigned at Not on file Gender Identity Not on file Sexual Orientation Not on file documented as of this encounter Last Filed Vital Signs Vital Sign Reading Time Taken Comments Blood Pressure 147/79 11/09/2022 1:49 PM CDT Pulse 87 11/09/2022 1:49 PM CDT Temperature 36.7 ??C (98 ??F) 11/09/2022 1:49 PM CDT Respiratory Rate 16 11/09/2022 1:49 PM CDT Oxygen Saturation 97% 11/09/2022 1:49 PM CDT Inhaled Oxygen Concentration 21% 11/09/2022 1 :49 PM CDT Weight 54.9 kg (121 lb) 10/12/2022 4:00 AM CDT Height 182.9 cm (6' 0.01 ) 10/05/2022 5:06 AM CD T Body Mass Index 16.41 10/05/2022 5:06 AM CDT documented in this encounter Functional [...] Yes 08/29/2022 documented as of this encounter Discharge Summaries * Vicky Silva MD - 11/09/2022 12:04 PM CDT Physician Discharge Summary Patient ID: Name: Bi Tabor MRN number: [id number] AGE: [id number] year old Date of : 1960 Admit date: 08/28/2022 Discharge date: 11/09/2022 Admitting Physician: Elmo Ozuna MD Discharge Physician: Vicky Silva MD Admission Diagnoses: #Seizures #Non-Verbal #Tachypnea #Hx of MRSA #Tracheostomy s/p trach collar #Pneumonia #UTI Discharge Diagnoses: Ilmay-xf-egqsigw??respiratory failure with hypoxia??- Resolved Chronic respiratory failure (CRF) with hypoxia Bacterial PNA due to S. capitis- resolved HCAP- resolved Hx Cerebrovascular accident (CVA) Seizure disorder Essential (primary) hypertension (HTN) Severe Protein-calorie malnutrition Dysphagia Pressure ulcer of right (R) heel, stage 3- POA: Hospital Course: Bi Tabor??is a 62 year old??male?Hx CVA w/ L sided residual deficits, seizure disorder, dementia, dysphagia w/ recurrent aspiration s/p PEG, zenker divertiuculum s/p diverticulectomy 2022, chronic hypoxic respiratory faiure s/p trach 06/2022, PVD s/p L AKA c/b nonhealing foot wound, HTN who presented to [facility] 08/28 with shortness of breath, tachypnea, and increased WOB d/t lack of suction instruments at SNF. Hospitalized with??presumed bacteremia (due to Staphylococcus capitis) and wexyf-aa-ioyhkpp respiratory failure with hypoxia. Hospital course complicated by hospital-acquired bacterial pneumonia/tracheitis due to Pseudomonas aeruginosa??and Acinetobacter baummannii. ?? On admission, no elevated WBC, afebrile but??CXR w/ large R pleural effusion, R lung atelectasis, RUL GGO. Patient was started on broad spectrum abx (vanc, cefe). BCX + staph capitis, SpCx + MRSA andpseudomonas. UCx + pseudomonas. TTE negative for vegetations. Hospital course c/b mucus plugging requiring bronch 09/08, recurrent pseudomonas PNA (repeat SpCx 09/09 + pseudomonas resistant to cefepime).??Antibiotics switched to??meropenem??(09/10-09/17).??Weaned off ventilation in ICU. Tolerated trachcollar and transferred to the floor. Pt is stable and waiting for placement. Note to PCP (e.g. vitals, labs, imaging, medication start/stop, etc. to follow): Pending labs and studies: none Consults: ID Discharged Condition: stable Disposition: prison care facility Significant Laboratory Studies: Data Review CBC: Recent Labs Lab 11/04/22 0633 11/01/22 0644 10/30/22 0546 WBC 7.4 6.8 7.9 HGB 14.2 13.5 13.5 HCT 44.4 42.3 41.0 MCV 95.9 95.7 92.1 PLTCOUNT 169 185 178 BMP: Recent Labs Lab 11/04/22 0633 11/01/22 0644 10/30/22 0546 NA 136 139 140 POTASSIUM 4.0 4.0 3.6 CL 106 106 107 BUN 14 14 14 CREATININE 0.47* 0.51* 0.41* CALCIUM 9.7 9.6 9.9 CMP: Recent Labs Lab 11/04/22 0633 10/09/22 1204 08/28/22 2224 AST 25 15 13 ALT 27 10 5 TBILI 0.2 0.1* 0.6 ALKPHOS 124 83 67 ALB 2.9* 3.0* 2.0* PROT 7.7 6.9 6.0 Microbiology Results (Displays last 21 days for this encounter ONLY) Procedure Component Value - Date/Time SARS-COV-2 (COVID-19) RAPID [[id number]] (Normal) Collected: 10/21/22 173 Lab Status: Final result Specimen: Microbiology from Nasopharyngeal Updated: 10/21/22 1820 COVID-19 PCR Not detected Narrative: The [employer] Xpert Xpress SARS-COV-2 has been authorized by the Food and Drug Administration (FDA) under an Emergency Use Authorization (EUA). This test has been validated in accordance with the FDA'sguidance document Policy for Diagnostic Testing in Laboratories [...] this EUA assay are available upon request. Significant Diagnostic Studies: Imaging: No results found. Discharge Exam: Vitals: 11/08/22 2210 11/09/22 0043 11/09/22 0522 11/09/22 0617 BP: 129/75 Pulse: 85 95 89 Resp: 16 18 18 Temp: 97.9 ??F (36.6 ??C) SpO2: 100% 100% 96% 95% Weight: Height: Estimated body mass index is 16.41 kg/m?? as calculated from the following: Height as of this encounter: 1.829 m (6' 0.01 ). Weight as of this encounter: 54.9 kg (121 lb). PHYSICAL EXAM GEN No acute distress, lying in bed comfortably HEENT NC, neck supple, sclera anicteric, dry mucosa CARDIO Regular rate rhythm, no murmurs appreciated RESP Normal work of breathing, on room air, trach ABD Soft, non distended, non tender, positive BS, +PEG EXT No edema. BKA of LLE SKIN Warm, no obvious new rashes NEURO Awake. Able to say names and some words. improvement Patient Instructions: Medication List START taking these medications artificial tears ophthalmic ointment Instill into both eyes every 8 hours divalproex sprinkle 125 MG capsule Commonly known as: Depakote Sprinkle 4 (four) capsules by Enteral Tube route every 6 hours guaiFENesin 100 MG/5ML solution Commonly known as: Robitussin 10 mL by Enteral Tube route every 6 hours levalbuterol 1.25 MG/3ML nebulizer solution Commonly known as: Xopenex Inhale 3 mL by mouth every 8 hours as needed for Shortness of Breath or Wheezing scopolamine 1 MG patch Commonly known as: Transderm-Scop Apply 1 (one) patch to skin every 3 days senna-docusate 8.6-50 MG tablet Commonly known as: Senokot-S 1 (one) tablet by Enteral Tube route 2 times daily CONTINUE taking these medications acetaminophen 500 MG tablet Commonly known as: Tylenol 1 (one) tablet by Enteral Tube route every 6 hours as needed Maximum allowable Acetaminophen amount= 4 Grams (4000 mg) / 24 hours. aspirin 81 MG chew tablet Commonly known as: Aspirin atorvastatin 40 MG tablet Commonly known as: Lipitor 1 (one) tablet by Enteral Tube route once daily cetirizine 10 MG tablet Commonly known as: ZyrTEC cloBAZam 20 MG tablet Commonly known as: Onfi 1 (one) tablet by Enteral Tube route 2 times daily docusate sodium 150 MG/15ML solution Commonly known as: Colace enoxaparin 40 MG/0.4ML injection Commonly known as: Lovenox fluticasone propionate 50 MCG/ACT nasal spray Commonly known as: Flonase folic acid 1 MG tablet Commonly known as: Folvite 1 (one) tablet by Enteral Tube route once daily lacosamide 200 MG tablet Commonly known as: Vimpat 1 (one) tablet by Enteral Tube route 2 times daily levETIRAcetam 1000 MG tablet Commonly known as: Keppra 2 (two) tablets by Enteral Tube route 2 times daily Nayzilam 5 MG/0.1ML nasal spray Generic drug: midazolam [place] 0.1 mL into the nose as needed for Seizures tamsulosin 0.4 MG capsule Commonly known as: Flomax Take 1 (one) capsule by mouth once daily At the same time every day after a meal. Please make sure it is via enteral tube. thiamine 100 MG tablet Commonly known as: Vitamin B-1 1 (one) tablet by Enteral Tube route once daily STOP taking these medications artificial tears ophthalmic solution metoprolol tartrate IR 25 MG tablet Commonly known as: Lopressor polyethylene glycol 3350 17 g packet Commonly known as: Miralax solifenacin 5 MG tablet Commonly known as: Vesicare Valproic Acid 250 MG/5ML Where to Get Your Medications Information about where to get these medications is not yet available Ask your nurse or doctor about these medications ?? artificial tears ophthalmic ointment ?? divalproex sprinkle 125 MG capsule ?? guaiFENesin 100 MG/5ML solution ?? levalbuterol 1.25 MG/3ML nebulizer solution ?? scopolamine 1 MG patch ?? senna-docusate 8.6-50 MG tablet Discharge Instructions INSTRUCTIONS FROM YOUR PROVIDER: You were admitted to the hospital for bloodstream infection (called bacteremia). You also developeda bacterial pneumonia while you were hospitalized. CHANGES to your medications: There were some changes made to the medications you take. Refer to 'Discharge Medication List'. If you have any questions about your medications, you should ask your primary care provider or pharmacist. INSTRUCTIONS and FOLLOW-UP: Specific instructions regarding pneumonia are included as attachment. Your care is being transferred to a long-term care facility. Future Appointments Thursday November 10, 2022 10:00 AM Appointment with [facility] at [facility] ([phone]) [address] [facility] [address] Thursday November 10, 2022 11:30 AM (Arrive by 11:15 AM) Appointment with Anna Membreno at [facility] ([phone]) [address] [facility] [address] It has been a pleasure taking care of you. [facility] Department of Internal Medicine Division of Hospital Medicine You may reach us at (dial [phone] for the bobbin cleaning machine operator). >35 minutes spent on the discharge and planning for the patient including coordination of followup care. Signed: Vicky Silva MD 11/09/2022 12:07 PM General Internal Medicine documented in this encounter Discharge Instructions * Discharge Instructions* Vicky Silva MD - 10/22/2022 8:12 AM CDT INSTRUCTIONS FROM YOUR PROVIDER: You were admitted to the hospital for bloodstream infection (called bacteremia). You also developeda bacterial pneumonia while you were hospitalized. CHANGES to your medications: There were some changes made to the medications you take. Refer to 'Discharge Medication List'. If you have any questions about your medications, you should ask your primary care provider or pharmacist. INSTRUCTIONS and FOLLOW-UP: Specific instructions regarding pneumonia are included as attachment. Your care is being transferred to a long-term care facility. Future Appointments Thursday November 10, 2022 10:00 AM Appointment with [facility] at [facility] ([phone]) [address] [facility] [address] Thursday November 10, 2022 11:30 AM (Arrive by 11:15 AM) Appointment with Anna Membreno at [facility] ([phone]) [address] [facility] [address] It has been a pleasure taking care of you. [facility] Department of Internal Medicine [facility] Medicine You may reach us at (dial [phone] for the bobbin cleaning machine operator). documented in this encounter Medications at Time of Discharge Medication Sig Dispensed Refills Start Date End Date artificial tears ophthalmic ointment Instill into both eyes every 8 hours 10/22/2022 aspirin (Aspirin) 81 MG chew tablet 1 (one) tablet by Enteral Tube route once daily folic acid (Folvite) 1 MG tablet 1 (one) tablet by Enteral Tube route once daily 04/01/2022 thiamine (Vitamin B-1) 100 MG tablet 1 (one) tablet by Enteral Tube route once daily 04/01/2022 acetaminophen (Tylenol) 500 MG tablet 1 (one) tablet by Enteral Tube route every 6 hours as needed Maximum allowable Acetaminophen amount = 4 Grams (4000 mg) / 24 hours. 06/15/2022 01/14/2023 atorvastatin (Lipitor) 40 MG tablet 1 (one) tablet by Enteral Tube route once daily 04/01/2022 02/28/2023 cetirizine (ZyrTEC) 10 MG tablet 1 (one) tablet by Enteral Tube route once daily 12/16/2022 cloBAZam (Onfi) 20 MG tablet 1 (one) tablet by Enteral Tube route 2 times daily 05/14/2022 11/11/2022 divalproex sprinkle (Depakote Sprinkle) 125 MG capsule 4 (four) capsules by Enteral Tube route every 6 hours 10/22/2022 11/11/2022 docusate sodium (Colace) 150 MG/15ML solution Take 15 mL by mouth once daily as needed for Constipation 04/07/2022 01/14/2023 enoxaparin (Lovenox) 40 MG/0.4ML injection Inject 40 (forty) mg subcutaneously once daily 02/28/2023 fluticasone propionate (Flonase) 50 MCG/ACT nasal spray [place] 1 (one) spray into each nostril once daily 06/08/2022 12/16/2022 guaiFENesin (Robitussin) 100 MG/5ML solution 10 mL by Enteral Tube route every 6 hours 10/22/2022 02/28/2023 lacosamide (Vimpat) 200 MG tablet 1 (one) tablet by Enteral Tube route 2 times daily 05/14/2022 11/11/2022 lacosamide (VIMPAT) 200 MG tablet Take 1 tablet by mouth 2 times daily for 30 days 60 tablet 5 05/16/2019 06/28/2023 levalbuterol (Xopenex) 1.25 MG/3ML nebulizer solution Inhale 3 mL by mouth every 8 hours as needed for Shortness of Breath or Wheezing 10/22/2022 01/14/2023 levETIRAcetam (Keppra) 1000 MG tablet 2 (two) tablets by Enteral Tube route 2 times daily 05/14/2022 11/11/2022 levETIRAcetam (KEPPRA) 1000 MG tablet Take 2 tablets by mouth 2 times daily for 30 days 120 tablet 5 05/16/2019 01/14/2023 levETIRAcetam (KEPPRA) 1000 MG tabletIndications:Lo 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, intractable, without status epilepticus (HCC) Take 2 tablets by mouth 2 times daily for 30 days 120 tablet 5 02/15/2019 01/14/2023 levETIRAcetam (Keppra) 500 MG tablet 08/29/2022 01/14/2023 levETIRAcetam (KEPPRA) 750 MG tabletIndications:Pa rtial 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, intractable, without status epilepticus (HCC) Take 3 tablets by mouth 2 times daily for 30 days 180 tablet 06/10/2018 01/14/2023 midazolam (Nayzilam) 5 MG/0.1ML nasal spray [place] 0.1 mL into the nose as needed for Seizures 1 Each 5 06/21/2022 11/11/2022 scopolamine (Transderm-Scop) 1 MG patch Apply 1 (one) patch to skin every 3 days 10/22/2022 12/16/2022 senna-docusate (Senokot-S) 8.6-50 MG tablet 1 (one) tablet by Enteral Tube route 2 times daily 10/22/2022 12/16/2022 tamsulosin (Flomax) 0.4 MG capsule Take 1 (one) capsule by mouth once daily At the same time every day after a meal. Please make sure it is via enteral tube. 06/15/2022 01/14/2023 documented as of this encounter Progress Notes * Suzy Farmer RN - 11/09/2022 9:39 AM CDT Facility Transfer Note Level of Care: Actual level of care at discharge: Custodial - Non Skilled Facility Name: (include name of person confirming admission): Actual discharge provider: [facility] NH Made Aware of Special Needs (if applicable): Yes for trach supplies and air mattress RN Call Report to:[phone] RAFAEL AWAN [address] [place] nurse Fax D/C Orders to:[phone] Transportation (company and number): [employer] [phone] @ [employer] Certificate of Medical Necessity rationale: Yes Date/time of transfer: Accepting MD and contact #: Completed and Signed [id number] (if applicable): Family/Other Notified of Transfer (name/phone): Sister Adriane notified 11/08/2022 Authorization Skilled Care: Authorization for Transportation: Verified Qualifying Stay(Skilled Only): NOT APPLICABLE Comments: Please send extra trach supplies, size 5/6 trach and boots with pt Name/Phone number: Suzy Farmer RN [phone] * Clover Sanchez, RD/LD - 11/09/2022 9:28 AM CDT Nutrition Re-Assessment Brief Synopsis: Patient is diagnosed with severe malnutrition; Specific criteria can be found in assessment below Nutrition Plan: Continue TwoCal HN at 55 ml/hr. Provides 2640 kcal, 110 g protein, 924 ml free water. +300 ml q4 hrs free water flush or per MD if not on additional fluids If electrolytes or renal labs elevated: Continuous: Nepro at 60 ml/hr. Provides 2592 kcal, 117 g protein, 232 g carbohydrate, 1047 ml free water. +250 ml q4 hrs free water flush or per MD if not on additional fluids Recommendations to Physician: See above Comments: Pt scheduled for reassessment. Last BM 11/07. At TF goal. Labs reviewed. RD remains available PRN. F/u per clinical guidelines. 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 Diet order accuracy Current diet order: NPO Current tube feeding order: TwoCal HN @ 55mL/hr Nutrition recommendation: agree with current nutrition order P.O.Intake for the past 48 hrs:No data recorded Supplement(s) Consumed- Last 48 hours None Food Allergies: No known food allergies GI Concerns: None Chewing/Swallowing: Dysphagia Pain affecting intake: No Admission weight: Weight: 63.5 kg (140 lb) (08/28/22 1101) Recent Weights/Methods 09/21/2022 0400 09/24/2022 0400 09/26/2022 2112 10/02/2022 0400 10/05/2022 0445 10/05/2022 0506 10/11/2022 0400 10/12/2022 0400 Weight: 63.1 kg (139 lb 3.2 oz) 61.5 kg (135 lb 8 oz) 61.5 kg (135 lb 9.6 oz) 60.8 kg (134 lb) -- 54 kg (119 lb) 54.4 kg (120 lb) 54.9 kg (121 lb) Weight Method (Utilize Scales): -- -- -- Bedscale -- Bedscale Bedscale Bedscale Wt Comments: Height: 182.9 cm (6' 0.01 ) IBW/lb (Calculated) Male: 178.85374688189009 , Laboratory values reviewed. Recent Labs Component Name 11/04/22 0633 11/01/22 0644 10/30/22 0546 10/12/22 0716 10/09/22 1204 08/30/22 0039 08/28/22 2224 BUN 14 14 14 - 14 - 11 CREATININE 0.47* 0.51* 0.41* - 0.39* - 0.50* NA 136 139 140 - 140 - 142 POTASSIUM 4.0 4.0 3.6 - 4.0 - 3.9 CL 106 106 107 - 108* - 111* CO2 24 27 26 - 24 - 24 GLUCOSE 98 90 108 - 115 - 86 CALCIUM 9.7 9.6 9.9 - 9.8 - 8.8 PROT 7.7 - - - 6.9 - 6.0 ALB 2.9* - - - 3.0* - 2.0* TBILI 0.2 - - - 0.1* - 0.6 ALKPHOS 124 - - - 83 - 67 ALT 27 - - - 10 - 5 AST 25 - - - 15 - 13 ANIONGAP 10 10 11 - 12 - 11 BCR 30* 27* 34* - 36* - 22 OSMOLALITY 282 288 291 - 291 - 293 AGRATIO 0.6* - - - 0.8* - 0.5* EGFR >90 >90 >90 - >90 - >90 - = values in this interval not displayed. Medications noted. Current Facility-Administered Medications Medication ??? acetaminophen (Tylenol) tablet 650 mg ??? artificial tears ophthalmic ointment ??? atorvastatin (Lipitor) tablet 40 mg ??? chlorhexidine (Peridex) 0.12 % oral solution 15 mL ??? cloBAZam (Onfi) tablet 20 mg ??? dextrose 10 % IV bolus Or ??? dextrose 10 % IV bolus ??? divalproex sprinkle (Depakote Sprinkle) capsule 500 mg ??? enoxaparin (Lovenox) injection 40 mg ??? glucagon (Glucagen) injection 1 mg ??? glucose (Diabetic Use) (Dex4 Glucose) oral liquid ??? glucose (Diabetic Use) oral gel ??? glucose chew tablet 4 tablet ??? guaiFENesin (Robitussin) solution 10 mL ??? lacosamide (Vimpat) tablet 200 mg ??? levalbuterol (Xopenex) nebulizer solution 1.25 mg ??? levETIRAcetam (Keppra) tablet 2,000 mg ??? scopolamine (Transderm-Scop) 1 patch And ??? scopolamine patch placement confirmation ??? senna-docusate (Senokot-S) tablet 1 tablet Skin/Wound: WDL Estimated Energy Needs: KCAL: 8551-6153 (35-45kcal/kg (ABW)) Protein (g): 95-125g (20% of estimated kcal needs) Fluid (ml):1 ml/kcal Needs based on: Kcal/kg- (Comment) (ABW 54.9kg) Recommended Access Route: TF Malnutrition Etiology: Malnutrition in the context of: chronic disease, Malnutrition Severity: Severe BMI: Body mass index is 16.41 kg/m??. GI Concerns: None Nutrition Focused Physical Assessment: Loss of Subcutaneous Fat Orbital: Severe Buccal: Severe Tricep: Severe Muscle Loss Temples (Temporalis Muscle): Severe Clavicles (Pectoralis & Deltoids): Severe Shoulders (Deltoids): Severe Nutrition Care Process (1) Nutrition Diagnostic Statement: Inadequate protein-energy intake related to:: decreased ability to consume or tolerate adequate food and/or fluids due to illness;swallowing difficulty as evidenced by:: estimated intake insufficient to meet requirements;BMI less than 19;unintentionalweight loss Nutrition Diagnostic Statement Progress: Nutrition problem continues Nutrition Intervention: Enteral nutrition: Monitoring: TF, weight, labs, meds, BM Evaluation: Nutrition Goal: Total intake will meet estimated nutrient needs Nutrition Goal Timeframe: Throughout stay Nutrition Goal Progress: Continue with current goal ASCOM: [id number] * Mandi Hoffmann RN - 11/09/2022 2:57 AM CDT Problem: Impaired Gas Exchange Goal: Resp rate/effort will be within specified limits Outcome: Progressing Problem: Ineffective Airway Clearance Goal: Patent airway Outcome: Progressing Problem: Fall Risk Goal: Fall risk and fall related injury risk are minimized (interventions related to the fall risk can be found in the flowsheet documentation) Outcome: Progressing Problem: Nutrient: Inadequate protein-energy intake Goal: Total intake will meet estimated nutrient needs Outcome: Progressing Problem: Oxygenation/Respiratory Function Goal: Patent airway Outcome: Progressing Goal: Respiratory rate/effort will be within specified limits Outcome: Progressing Problem: Care of Tracheostomy Goal: Tracheostomy tube and site will be maintained Outcome: Progressing Problem: Potential for Infection Goal: Insertion site without signs/symptoms of infection Outcome: Progressing Problem: Knowledge Deficit Goal: Patient/Significant other demonstrates understanding of Tracheostomy Outcome: Progressing Problem: Communication/Dysarthria Goal: STG - Patient will tolerate PMV trials Outcome: Progressing Problem: Pain/Discomfort Goal: Patient exhibits reduced pain/discomfort as evidenced by pain scores Outcome: Progressing Goal: Patient uses pharmacological and non-pharmacological pain management strategies. Outcome: Progressing Goal: Patient verbalizes acceptable level of pain relief and ability to engage in desired activity. Outcome: Progressing Problem: Skin Integrity Goal: Skin integrity is maintained or improved Outcome: Progressing Problem: Daily Care Goal: Daily care needs are met Outcome: Progressing * Suzy Farmer RN - 11/08/2022 3:10 PM CDT Care Coordination Progress Note Anticipated level of care at discharge: Custodial - Skilled Facility Discharge Plan: SNF 11-09 Notified pt sister Adriane notified [phone] and she is agreeable with plan READMISSION RISK SCORE is 26 at 3:11 PM 11/08/2022. Anticipated Discharge Date: 11/09/22 Patient/Family provided with list of resources? Yes Preferred Provider / High Quality Network List given?: Yes Reason for provider choice: Unknown Family Support (Name and Phone): Extended Emergency Contact Information Primary Emergency Contact: Adriane Pearson Mobile Relation: Sister Shop Mechanic needed? No Secondary Emergency Contact: Amarjit Tabor [facility] Relation: Brother Transportation at Discharge: Ambulance Equipment at Home: Equipment at Home: Facility Equipment List DME patient requires but does not have: DME Provider: Medication affordability concerns: No Follow Up Appointment: Transportation to MD: Auth Number (if required): [place]: DME: Medications: Transportation: Name: Suzy Farmer RN Phone: [phone] * Clover Perez SLP - 11/08/2022 3:09 PM CDT [facility] Department of Physical Medicine & Rehabilitation Progress Note Patient: Bi Tabor [facility] Record Number: [id number] Date of : 1960 Age: [age] year old 11/08/22 1500 Missed Visit Missed Visit Refused Pt refused to participate. When asked if he wanted to rest, he said yes . ST will follow up tomorrow to see if Pt is willing to participate. Vane Goodwin MS CCC-REPORTING COORDINATOR Speech Language Pathologist * Suzy Farmer RN - 11/08/2022 1:49 PM CDT Care Coordination Progress Note Anticipated level of care at discharge: Custodial - Skilled Facility Discharge Plan: [facility] CM left voicemail with admission READMISSION RISK SCORE is 26 at 1:49 PM 11/08/2022. Anticipated Discharge Date: 11/09/22 Patient/Family provided with list of resources? 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 No acute events overnight. Having intermittent PMV trials, will hope for more and continued today. Pending placement with improvement. Objective: Temp: [97.3 ??F (36.3 ??C)-98.2 ??F (36.8 ??C)] 98.2 ??F (36.8 ??C) Pulse: [79-107] 79 Resp: [16-20] 16 BP: (110-140)/(73-86) 110/74 O2 %: [21 %] 21 % Weight change: Intake/Output Summary (Last 24 hours) at 11/08/2022 0907 Last data filed at 11/08/2022 0636 Gross per 24 hour Intake 3620 ml Output 1120 ml Net 2500 ml GEN No acute distress, lying in bed comfortably HEENT NC, neck supple, sclera anicteric, dry mucosa CARDIO Regular rate rhythm, no murmurs appreciated RESP Normal work of breathing, on room air, trach ABD Soft, non distended, non tender, positive BS, +PEG EXT No edema. BKA of LLE SKIN Warm, no obvious new rashes NEURO Awake. Able to say names and some words. improvement Data Review: no new labs last 24 hours IMAGING/PROCEDURES: no new imaging last 24 hours Medications: ??? artificial tears Each Eye q8h ??? atorvastatin 40 mg Enteral Tube QDAY ??? chlorhexidine 15 mL Mouth/Throat BID ??? cloBAZam 20 mg Enteral Tube BID ??? divalproex sprinkle 500 mg Enteral Tube q6h ??? enoxaparin 40 mg Subcutaneous QDAY ??? guaiFENesin 10 mL Enteral Tube q6h ??? lacosamide 200 mg Enteral Tube BID ??? levalbuterol 1.25 mg Inhalation q6h ??? levETIRAcetam 2,000 mg Enteral Tube BID ??? scopolamine 1 patch Transdermal q72h And ??? scopolamine patch placement confirmation Transdermal BID ??? senna-docusate 1 tablet Enteral Tube BID PRN Meds: ??? acetaminophen ??? dextrose IV for hypoglycemia OR dextrose IV for hypoglycemia ??? glucagon ??? glucose (Diabetic Use) ??? glucose (Diabetic Use) gel ??? glucose chew tab Bacterial pneumonia (POA: Yes) History of CVA (cerebrovascular accident) (POA: Yes) Paroxysmal tachycardia, unspecified (CMS/HCC) (POA: Yes) Essential (primary) hypertension (POA: Yes) Seizure disorder (CMS/HCC) (POA: Yes) Sepsis without acute organ dysfunction (CMS/HCC) (POA: Yes) Severe protein-calorie malnutrition (CMS/HCC) (POA: Yes) Tachypnea (POA: Yes) Chronic respiratory failure with hypoxia (CMS/HCC) (POA: Yes) Pressure ulcer of right heel, stage 3 (CMS/HCC) (POA: Yes) Dementia, vascular (CMS/HCC) (POA: Yes) Assessment/Plan: Bi Tabor is a 62 year old male Hx CVA w/ L sided residual deficits, seizure disorder, dementia,dysphagia w/ recurrent aspiration s/p PEG, zenker divertiuculum s/p diverticulectomy 2022, chronic hypoxic respiratory faiure s/p trach 06/2022, PVD s/p L AKA c/b nonhealing foot wound, HTN who presented to [facility] 08/28 with shortness of breath, tachypnea, and increased WOB d/t lack of suction instruments at SNF. Hospitalized with presumed bacteremia (due to Staphylococcus capitis) and bnqkq-kp-cleflqjdqwufcehmit failure with hypoxia. Hospital course complicated by hospital-acquired bacterial pneumonia/tracheitis due to Pseudomonas aeruginosa and Acinetobacter baummannii. On admission, no elevated WBC, afebrile but??CXR w/ large R pleural effusion, R lung atelectasis, RUL GGO. Patient was started on broad spectrum abx (vanc, cefe). BCX + staph capitis, SpCx + MRSA andpseudomonas. UCx + pseudomonas. TTE negative for vegetations. Hospital course c/b mucus plugging requiring bronch 09/08, recurrent pseudomonas PNA (repeat SpCx 09/09 + pseudomonas resistant to cefepime).??Antibiotics switched to??meropenem??(09/10-09/17).??Weaned off ventilation in ICU. Tolerated trachcollar and transferred to the floor. Pt is stable and waiting for placement. Adnoc-if-mlxpzqq respiratory failure with hypoxia - Resolved Chronic respiratory failure (CRF) with hypoxia Bacterial PNA due to S. capitis- resolved HCAP- resolved -on Trach collar, supplemental O2 to maintain Sats >92% -bronchial hygiene -on levalbuterol nebulizer 1.25 mg Qd -s/p 10 days of meropenem on 09/19 -Per Speech: Recommend use of PMV during waking hours- only for short duration w/ supervision, due to copious mucus/secretions. Started 11/06 Hx Cerebrovascular accident (CVA): Atorvastatin 40 mg ?? Seizure disorder: on levetiracetam 200 mg BID, divalproex 500 mg Q6, lacosamide 200 mg BID, clobazam 20 mg BID Essential (primary) hypertension (HTN) hold, as normotensive ?? Severe Protein-calorie malnutrition Dysphagia Enteral feedings via PEG tube -needs cuff deflation (can't due to copious amount of secretion, to call speech back for PMV) Pressure ulcer of right (R) heel, stage 3- POA: follow rn document improvement specialist instructions Access: Peripheral IVs Diet: NPO no exception. TF F/E/N: keep K 3.5-4.0 meq, Mg~2.0 mg/dl, Phosphorous 3.0-4.0 mmol/l Ppx: lovenox CODE STATUS: FULL CODE Disposition: PT/OT, speech and nutrition notes reviewed and care discussed. Plan for rehab (found aplace most likely Tuesday or Tuesday) Vicky Silva MD General Internal Medicine 11/08/2022 9:07 AM >40 minutes spent on the care of this patient and/or guardian. > 50% was spent in counseling and/or coordination of care that included the patient, family and consults. * Mandi Hoffmann RN - 11/08/2022 2:20 AM CDT Problem: Impaired Gas Exchange Goal: Resp rate/effort will be within specified limits Outcome: Progressing Problem: Ineffective Airway Clearance Goal: Patent airway Outcome: Progressing Problem: Fall Risk Goal: Fall risk and fall related injury risk are minimized (interventions related to the fall risk can be found in the flowsheet documentation) Outcome: Progressing Problem: Nutrient: Inadequate protein-energy intake Goal: Total intake will meet estimated nutrient needs Outcome: Progressing Problem: Oxygenation/Respiratory Function Goal: Patent airway Outcome: Progressing Goal: Respiratory rate/effort will be within specified limits Outcome: Progressing Problem: Care of Tracheostomy Goal: Tracheostomy tube and site will be maintained Outcome: Progressing Problem: Potential for Infection Goal: Insertion site without signs/symptoms of infection Outcome: Progressing Problem: Knowledge Deficit Goal: Patient/Significant other demonstrates understanding of Tracheostomy Outcome: Progressing Problem: Communication/Dysarthria Goal: STG - Patient will tolerate PMV trials Outcome: Progressing Problem: Pain/Discomfort Goal: Patient exhibits reduced pain/discomfort as evidenced by pain scores Outcome: Progressing Goal: Patient uses pharmacological and non-pharmacological pain management strategies. Outcome: Progressing Goal: Patient verbalizes acceptable level of pain relief and ability to engage in desired activity. Outcome: Progressing Problem: Skin Integrity Goal: Skin integrity is maintained or improved Outcome: Progressing Problem: Daily Care Goal: Daily care needs are met Outcome: Progressing * Vicky Silva MD - 11/07/2022 8:47 AM CDT INTERNAL MEDICINE PROGRESS NOTE Admit Date: 08/28/2022 Progress Note Length of Stay 71 Day(s) Subjective: Seen in the morning. Mouthing words, and able to understand some words, will continue PMV during waking hours today. Per speech only for short duration w/ supervision, due to copious mucus/secretions No change overnight or during the day yesterday. Objective: Temp: [97.7 ??F (36.5 ??C)-97.9 ??F (36.6 ??C)] 97.7 ??F (36.5 ??C) Pulse: [91-103] 100 Resp: [14-20] 20 BP: (137-155)/(79-97) 146/82 O2 %: [21 %] 21 % Weight change: Intake/Output Summary (Last 24 hours) at 11/07/2022 0847 Last data filed at 11/07/2022 0539 Gross per 24 hour Intake 2360 ml Output 2200 ml Net 160 ml GEN No acute distress, lying in bed comfortably HEENT NC, neck supple, sclera anicteric, dry mucosa CARDIO Regular rate rhythm, no murmurs appreciated RESP Normal work of breathing, on room air, trach ABD Soft, non distended, non tender, positive BS, +PEG EXT No edema. BKA of LLE SKIN Warm, no obvious new rashes NEURO Awake. Able to say names and some words. improvement Data Review: no new labs last 24 hours IMAGING/PROCEDURES: no new imaging last 24 hours Medications: ??? artificial tears Each Eye q8h ??? atorvastatin 40 mg Enteral Tube QDAY ??? chlorhexidine 15 mL Mouth/Throat BID ??? cloBAZam 20 mg Enteral Tube BID ??? divalproex sprinkle 500 mg Enteral Tube q6h ??? enoxaparin 40 mg Subcutaneous QDAY ??? guaiFENesin 10 mL Enteral Tube q6h ??? lacosamide 200 mg Enteral Tube BID ??? levalbuterol 1.25 mg Inhalation q6h ??? levETIRAcetam 2,000 mg Enteral Tube BID ??? scopolamine 1 patch Transdermal q72h And ??? scopolamine patch placement confirmation Transdermal BID ??? senna-docusate 1 tablet Enteral Tube BID PRN Meds: ??? acetaminophen ??? dextrose IV for hypoglycemia OR dextrose IV for hypoglycemia ??? glucagon ??? glucose (Diabetic Use) ??? glucose (Diabetic Use) gel ??? glucose chew tab Bacterial pneumonia (POA: Yes) History of CVA (cerebrovascular accident) (POA: Yes) Paroxysmal tachycardia, unspecified (CMS/HCC) (POA: Yes) Essential (primary) hypertension (POA: Yes) Seizure disorder (CMS/HCC) (POA: Yes) Sepsis without acute organ dysfunction (CMS/HCC) (POA: Yes) Severe protein-calorie malnutrition (CMS/HCC) (POA: Yes) Tachypnea (POA: Yes) Chronic respiratory failure with hypoxia (CMS/HCC) (POA: Yes) Pressure ulcer of right heel, stage 3 (CMS/HCC) (POA: Yes) Dementia, vascular (CMS/HCC) (POA: Yes) Assessment/Plan: Bi Tabor is a 62 year old male Hx CVA w/ L sided residual deficits, seizure disorder, dementia,dysphagia w/ recurrent aspiration s/p PEG, zenker divertiuculum s/p diverticulectomy 2022, chronic hypoxic respiratory faiure s/p trach 06/2022, PVD s/p L AKA c/b nonhealing foot wound, HTN who presented to [facility] 08/28 with shortness of breath, tachypnea, and increased WOB d/t lack of suction instruments at SNF. Hospitalized with presumed bacteremia (due to Staphylococcus capitis) and ucfac-om-pqmneiwuuinrtzszxo failure with hypoxia. Hospital course complicated by hospital-acquired bacterial pneumonia/tracheitis due to Pseudomonas aeruginosa and Acinetobacter baummannii. On admission, no elevated WBC, afebrile but??CXR w/ large R pleural effusion, R lung atelectasis, RUL GGO. Patient was started on broad spectrum abx (vanc, cefe). BCX + staph capitis, SpCx + MRSA andpseudomonas. UCx + pseudomonas. TTE negative for vegetations. Hospital course c/b mucus plugging requiring bronch 09/08, recurrent pseudomonas PNA (repeat SpCx 09/09 + pseudomonas resistant to cefepime).??Antibiotics switched to??meropenem??(09/10-09/17).??Weaned off ventilation in ICU. Tolerated trachcollar and transferred to the floor. Pt is stable and waiting for placement. Hnfvk-re-vuztlwa respiratory failure with hypoxia - Resolved Chronic respiratory failure (CRF) with hypoxia Bacterial PNA due to S. capitis- resolved HCAP- resolved -on Trach collar, supplemental O2 to maintain Sats >92% -bronchial hygiene -on levalbuterol nebulizer 1.25 mg Qd -s/p 10 days of meropenem on 09/19 -Per Speech: Recommend use of PMV during waking hours- only for short duration w/ supervision, due to copious mucus/secretions. Started 11/06 Hx Cerebrovascular accident (CVA): Atorvastatin 40 mg ?? Seizure disorder: on levetiracetam 200 mg BID, divalproex 500 mg Q6, lacosamide 200 mg BID, clobazam 20 mg BID Essential (primary) hypertension (HTN) hold, as normotensive ?? Severe Protein-calorie malnutrition Dysphagia Enteral feedings via PEG tube -needs cuff deflation (can't due to copious amount of secretion, to call speech back for PMV) Pressure ulcer of right (R) heel, stage 3- POA: follow rn document improvement specialist instructions Access: Peripheral IVs Diet: NPO no exception. TF F/E/N: keep K 3.5-4.0 meq, Mg~2.0 mg/dl, Phosphorous 3.0-4.0 mmol/l Ppx: lovenox CODE STATUS: FULL CODE Disposition: PT/OT, speech and nutrition notes reviewed and care discussed. Plan for rehab (found aplace most likely Tuesday or Tuesday) Vicky Silva MD General Internal Medicine 11/07/2022 8:47 AM >40 minutes spent on the care of this patient and/or guardian. > 50% was spent in counseling and/or coordination of care that included the patient, family and consults. * Mandi Hoffmann RN - 11/07/2022 1:23 AM CDT Problem: Impaired Gas Exchange Goal: Resp rate/effort will be within specified limits Outcome: Progressing Problem: Ineffective Airway Clearance Goal: Patent airway Outcome: Progressing Problem: Fall Risk Goal: Fall risk and fall related injury risk are minimized (interventions related to the fall risk can be found in the flowsheet documentation) Outcome: Progressing Problem: Nutrient: Inadequate protein-energy intake Goal: Total intake will meet estimated nutrient needs Outcome: Progressing Problem: Oxygenation/Respiratory Function Goal: Patent airway Outcome: Progressing Goal: Respiratory rate/effort will be within specified limits Outcome: Progressing Problem: Care of Tracheostomy Goal: Tracheostomy tube and site will be maintained Outcome: Progressing Problem: Potential for Infection Goal: Insertion site without signs/symptoms of infection Outcome: Progressing Problem: Knowledge Deficit Goal: Patient/Significant other demonstrates understanding of Tracheostomy Outcome: Progressing Problem: Communication/Dysarthria Goal: STG - Patient will tolerate PMV trials Outcome: Progressing Problem: Pain/Discomfort Goal: Patient exhibits reduced pain/discomfort as evidenced by pain scores Outcome: Progressing Goal: Patient uses pharmacological and non-pharmacological pain management strategies. Outcome: Progressing Goal: Patient verbalizes acceptable level of pain relief and ability to engage in desired activity. Outcome: Progressing Problem: Skin Integrity Goal: Skin integrity is maintained or improved Outcome: Progressing Problem: Daily Care Goal: Daily care needs are met Outcome: Progressing * Vicky Silva MD - 11/06/2022 10:30 AM CDT INTERNAL MEDICINE PROGRESS NOTE Admit Date: 08/28/2022 Progress Note Length of Stay 70 Day(s) Subjective: Seen in the morning. Mouthing words, and able to understand some words, will continue PMV during waking hours today. Per speech only for short duration w/ supervision, due to copious mucus/secretions Objective: Temp: [97.3 ??F (36.3 ??C)-97.9 ??F (36.6 ??C)] 97.3 ??F (36.3 ??C) Pulse: [83-108] 83 Resp: [17-18] 17 BP: (143-152)/(87-95) 152/88 O2 %: [21 %] 21 % Weight change: Intake/Output Summary (Last 24 hours) at 11/06/2022 1030 Last data filed at 11/06/2022 0324 Gross per 24 hour Intake 1046 ml Output 1200 ml Net -154 ml GEN No acute distress, lying in bed comfortably HEENT NC, neck supple, sclera anicteric, dry mucosa CARDIO Regular rate rhythm, no murmurs appreciated RESP Normal work of breathing, on room air, trach ABD Soft, non distended, non tender, positive BS, +PEG EXT No edema. BKA of LLE SKIN Warm, no obvious new rashes NEURO Awake. Able to say names and some words. improvement PSYCH Appropriate mood and affect Data Review: no new labs last 24 hours IMAGING/PROCEDURES: no new imaging last 24 hours Medications: ??? artificial tears Each Eye q8h ??? atorvastatin 40 mg Enteral Tube QDAY ??? chlorhexidine 15 mL Mouth/Throat BID ??? cloBAZam 20 mg Enteral Tube BID ??? divalproex sprinkle 500 mg Enteral Tube q6h ??? enoxaparin 40 mg Subcutaneous QDAY ??? guaiFENesin 10 mL Enteral Tube q6h ??? lacosamide 200 mg Enteral Tube BID ??? levalbuterol 1.25 mg Inhalation q6h ??? levETIRAcetam 2,000 mg Enteral Tube BID ??? scopolamine 1 patch Transdermal q72h And ??? scopolamine patch placement confirmation Transdermal BID ??? senna-docusate 1 tablet Enteral Tube BID PRN Meds: ??? acetaminophen ??? dextrose IV for hypoglycemia OR dextrose IV for hypoglycemia ??? glucagon ??? glucose (Diabetic Use) ??? glucose (Diabetic Use) gel ??? glucose chew tab Bacterial pneumonia (POA: Yes) History of CVA (cerebrovascular accident) (POA: Yes) Paroxysmal tachycardia, unspecified (CMS/HCC) (POA: Yes) Essential (primary) hypertension (POA: Yes) Seizure disorder (CMS/HCC) (POA: Yes) Sepsis without acute organ dysfunction (CMS/HCC) (POA: Yes) Severe protein-calorie malnutrition (CMS/HCC) (POA: Yes) Tachypnea (POA: Yes) Chronic respiratory failure with hypoxia (CMS/HCC) (POA: Yes) Pressure ulcer of right heel, stage 3 (CMS/HCC) (POA: Yes) Dementia, vascular (CMS/HCC) (POA: Yes) Assessment/Plan: Bi Tabor is a 62 year old male Hx CVA w/ L sided residual deficits, seizure disorder, dementia,dysphagia w/ recurrent aspiration s/p PEG, zenker divertiuculum s/p diverticulectomy 2022, chronic hypoxic respiratory faiure s/p trach 06/2022, PVD s/p L AKA c/b nonhealing foot wound, HTN who presented to [facility] 08/28 with shortness of breath, tachypnea, and increased WOB d/t lack of suction instruments at SNF. Hospitalized with presumed bacteremia (due to Staphylococcus capitis) and nyevi-yd-bnstkcrzaolpcsilqs failure with hypoxia. Hospital course complicated by hospital-acquired bacterial pneumonia/tracheitis due to Pseudomonas aeruginosa and Acinetobacter baummannii. On admission, no elevated WBC, afebrile but??CXR w/ large R pleural effusion, R lung atelectasis, RUL GGO. Patient was started on broad spectrum abx (vanc, cefe). BCX + staph capitis, SpCx + MRSA andpseudomonas. UCx + pseudomonas. TTE negative for vegetations. Hospital course c/b mucus plugging requiring bronch 09/08, recurrent pseudomonas PNA (repeat SpCx 09/09 + pseudomonas resistant to cefepime).??Antibiotics switched to??meropenem??(09/10-09/17).??Weaned off ventilation in ICU. Tolerated trachcollar and transferred to the floor. Pt is stable and waiting for placement. Jkzpk-et-jxvbqdo respiratory failure with hypoxia - Resolved Chronic respiratory failure (CRF) with hypoxia Bacterial PNA due to S. capitis- resolved HCAP- resolved -on Trach collar, supplemental O2 to maintain Sats >92% -bronchial hygiene -on levalbuterol nebulizer 1.25 mg Qd -s/p 10 days of meropenem on 09/19 -Per Speech: Recommend use of PMV during waking hours- only for short duration w/ supervision, due to copious mucus/secretions Hx Cerebrovascular accident (CVA): Atorvastatin 40 mg ?? Seizure disorder: on levetiracetam 200 mg BID, divalproex 500 mg Q6, lacosamide 200 mg BID, clobazam 20 mg BID Essential (primary) hypertension (HTN) hold, as normotensive ?? Severe Protein-calorie malnutrition Dysphagia Enteral feedings via PEG tube -needs cuff deflation (can't due to copious amount of secretion, to call speech back for PMV) Pressure ulcer of right (R) heel, stage 3- POA: follow rn document improvement specialist instructions Access: Peripheral IVs Diet: NPO no exception. TF F/E/N: keep K 3.5-4.0 meq, Mg~2.0 mg/dl, Phosphorous 3.0-4.0 mmol/l Ppx: lovenox CODE STATUS: FULL CODE Disposition: PT/OT, speech and nutrition notes reviewed and care discussed. Plan for rehab (found aplace most likely Tuesday or Tuesday) Vicky Silva MD General Internal Medicine 11/06/2022 10:30 AM >40 minutes spent on the care of this patient and/or guardian. > 50% was spent in counseling and/or coordination of care that included the patient, family and consults. * Angelita Jarrett RN - 11/06/2022 4:11 AM CDT Problem: Impaired Gas Exchange Goal: Resp rate/effort will be within specified limits Outcome: Progressing Problem: Ineffective Airway Clearance Goal: Patent airway Outcome: Progressing Problem: Fall Risk Goal: Fall risk and fall related injury risk are minimized (interventions related to the fall risk can be found in the flowsheet documentation) Outcome: Progressing Problem: Oxygenation/Respiratory Function Goal: Patent airway Outcome: Progressing Goal: Respiratory rate/effort will be within specified limits Outcome: Progressing Problem: Nutrient: Inadequate protein-energy intake Goal: Total intake will meet estimated nutrient needs Outcome: Progressing Problem: Skin Integrity Goal: Skin integrity is maintained or improved Outcome: Progressing Patient on HHTC 28%, suctioned clear secretion, breathing comfortably, repositioned every 2 hours. * Vicky Silva MD - 11/05/2022 4:01 PM CDT INTERNAL MEDICINE PROGRESS NOTE Admit Date: 08/28/2022 Progress Note Length of Stay 69 Day(s) Subjective: Seen in the morning. Mouthing words, and able to understand some words restroom, number 1' Speech came to re-evaluate the patient. Recommend Recommend use of PMV during waking hours- only for short duration w/ supervision, due to copious mucus/secretions Epic chat sent to RT and RN to see if we can start trial today and carry over the weekend. Objective: Temp: [97.8 ??F (36.6 ??C)-97.9 ??F (36.6 ??C)] 97.9 ??F (36.6 ??C) Pulse: [95-97] 95 Resp: [16-19] 16 BP: (134-153)/(77-95) 153/95 O2 %: [21 %] 21 % Weight change: Intake/Output Summary (Last 24 hours) at 11/05/2022 1601 Last data filed at 11/05/2022 0623 Gross per 24 hour Intake -- Output 2300 ml Net -2300 ml GEN No acute distress, lying in bed comfortably HEENT NC, neck supple, sclera anicteric, dry mucosa CARDIO Regular rate rhythm, no murmurs appreciated RESP Normal work of breathing, on room air, trach ABD Soft, non distended, non tender, positive BS, +PEG EXT No edema. BKA of LLE SKIN Warm, no obvious new rashes NEURO Awake. Responds to verbal stimuli. Mouthing words. PSYCH Appropriate mood and affect Data Review: no new labs last 24 hours IMAGING/PROCEDURES: no new imaging last 24 hours Medications: ??? artificial tears Each Eye q8h ??? atorvastatin 40 mg Enteral Tube QDAY ??? chlorhexidine 15 mL Mouth/Throat BID ??? cloBAZam 20 mg Enteral Tube BID ??? divalproex sprinkle 500 mg Enteral Tube q6h ??? enoxaparin 40 mg Subcutaneous QDAY ??? guaiFENesin 10 mL Enteral Tube q6h ??? lacosamide 200 mg Enteral Tube BID ??? levalbuterol 1.25 mg Inhalation q6h ??? levETIRAcetam 2,000 mg Enteral Tube BID ??? scopolamine 1 patch Transdermal q72h And ??? scopolamine patch placement confirmation Transdermal BID ??? senna-docusate 1 tablet Enteral Tube BID PRN Meds: ??? acetaminophen ??? dextrose IV for hypoglycemia OR dextrose IV for hypoglycemia ??? glucagon ??? glucose (Diabetic Use) ??? glucose (Diabetic Use) gel ??? glucose chew tab Bacterial pneumonia (POA: Yes) History of CVA (cerebrovascular accident) (POA: Yes) Paroxysmal tachycardia, unspecified (CMS/HCC) (POA: Yes) Essential (primary) hypertension (POA: Yes) Seizure disorder (CMS/HCC) (POA: Yes) Sepsis without acute organ dysfunction (CMS/HCC) (POA: Yes) Severe protein-calorie malnutrition (CMS/HCC) (POA: Yes) Tachypnea (POA: Yes) Chronic respiratory failure with hypoxia (CMS/HCC) (POA: Yes) Pressure ulcer of right heel, stage 3 (CMS/HCC) (POA: Yes) Dementia, vascular (CMS/HCC) (POA: Yes) Assessment/Plan: Bi Tabor is a 62 year old male Hx CVA w/ L sided residual deficits, seizure disorder, dementia,dysphagia w/ recurrent aspiration s/p PEG, zenker divertiuculum s/p diverticulectomy 2023, chronic hypoxic respiratory faiure s/p trach 06/2022, PVD s/p L AKA c/b nonhealing foot wound, HTN who presented to [facility] with shortness of breath, tachypnea, and increased WOB d/t lack of suction instruments at SNF. Hospitalized with presumed bacteremia (due to Staphylococcus capitis) and nfeno-nq-qodsfndwajhwtwpemj failure with hypoxia. Hospital course complicated by hospital-acquired bacterial pneumonia/tracheitis due to Pseudomonas aeruginosa and Acinetobacter baummannii. On admission, no elevated WBC, afebrile but??CXR w/ large R pleural effusion, R lung atelectasis, RUL GGO. Patient was started on broad spectrum abx (vanc, cefe). BCX + staph capitis, SpCx + MRSA andpseudomonas. UCx + pseudomonas. TTE negative for vegetations. Hospital course c/b mucus plugging requiring bronch 09/08, recurrent pseudomonas PNA (repeat SpCx 09/09 + pseudomonas resistant to cefepime).??Antibiotics switched to??meropenem??(09/10-09/17).??Weaned off ventilation in ICU. Tolerated trachcollar and transferred to the floor. Pt is stable and waiting for placement. Ymzjz-rq-qtkxtyj respiratory failure with hypoxia - Resolved Chronic respiratory failure (CRF) with hypoxia Bacterial PNA due to S. capitis- resolved HCAP- resolved -on Trach collar, supplemental O2 to maintain Sats >92% -bronchial hygiene -on levalbuterol nebulizer 1.25 mg Qd -s/p 10 days of meropenem on 09/19 -Per Speech: Recommend use of PMV during waking hours- only for short duration w/ supervision, due to copious mucus/secretions Hx Cerebrovascular accident (CVA): Atorvastatin 40 mg ?? Seizure disorder: on levetiracetam 200 mg BID, divalproex 500 mg Q6, lacosamide 200 mg BID, clobazam 20 mg BID Essential (primary) hypertension (HTN) hold, as normotensive ?? Severe Protein-calorie malnutrition Dysphagia Enteral feedings via PEG tube -needs cuff deflation (can't due to copious amount of secretion, to call speech back for PMV) Pressure ulcer of right (R) heel, stage 3- POA: follow rn document improvement specialist instructions Access: Peripheral IVs Diet: NPO no exception. TF F/E/N: keep K 3.5-4.0 meq, Mg~2.0 mg/dl, Phosphorous 3.0-4.0 mmol/l Ppx: lovenox CODE STATUS: FULL CODE Disposition: PT/OT, speech and nutrition notes reviewed and care discussed. Plan for rehab (found aplace most likely Tuesday or Tuesday) Vicky Silva MD General Internal Medicine 11/05/2022 4:01 PM >40 minutes spent on the care of this patient and/or guardian. > 50% was spent in counseling and/or coordination of care that included the patient, family and consults. * Suzy Farmer RN - 11/05/2022 3:45 PM CDT Care Coordination Progress Note Anticipated level of care at discharge: Custodial - Skilled Facility Continued Care and Services - Admitted Since 08/28/2022 Destination Service Provider Request Status Selected Services Address Phone Fax Patient Preferred [facility]Accepted N/A [address] [facility] [phone] -- Current Capacity last updated by Yu Nguyễn on 04/21/2022 1237 118 Internal Comment last updated by Gaurav Juarez 10/20/2022 0933 SW called and left for admissions 10/20 [facility] Accepted N/A [address] [place] [address] [phone] -- [facility] Considering N/A [address] [place] [phone] -- Michelle Gibbons Pending - Request Sent N/A 2 [facility] [address] -- [facility] Pending - Request Sent N/A [address] [facility] [address] -- [facility] Pending - Request Sent N/A [address] [facility] [phone] -- [facility] Pending - Request Sent N/A [address] [facility] [phone] -- [facility] Pending - Request Sent N/A [address] [facility] [address] [phone] -- [facility] Pending - Request Sent N/A [address] [facility] [phone] -- [facility] Pending - Request Sent N/A [address] [facility] [address] [phone] -- [facility] Pending - Request Sent N/A [address] [facility] [phone] -- [facility] Pending - Request Sent N/A [address] [facility] [address] [phone] -- [facility] Pending - Request Sent N/A [address] [place] [phone] -- [facility] Pending - Request Sent N/A 201 [facility] [address] [phone] -- [facility] Pending - Request Sent N/A [address] [place] [address] [address] [phone] -- [facility] Pending - Request Sent N/A 5 [facility] [place] [phone] -- [facility] Pending - Request Sent N/A [address] [place] [address] [phone] -- [facility] [place] Pending - Request Sent N/A [address] [facility] [phone] -- [facility] Pending - Request Sent N/A [address] [facility] [facility] [phone] -- [facility] Pending - Request Sent N/A 701 [facility] [phone] -- [facility] Pending - Request Sent N/A [address] [facility] [address] -- [facility] Pending - Request Sent N/A [address] [place] [phone] -- [facility] Pending - Request Sent N/A [address] [facility] [address] -- [facility] Pending - Request Sent N/A [address] [facility] [phone] -- [facility] Pending - Request Sent N/A [address] [facility] [address] -- [address] Pending - Request Sent N/A 29[address] [facility] [phone] -- [facility] Pending - Request Sent N/A [address] [place] [address] [phone] -- [facility] Pending - Request Sent N/A [address] [facility] [phone] -- [facility] Pending - Request Sent N/A [address] [facility] [address] [phone] -- [facility] Pending - Request Sent N/A [address] [facility] [phone] -- [facility] Pending - Request Sent N/A [address] [facility] [place] [place] [phone] -- [facility] Pending - Request Sent N/A [address] E [facility] [address] -- [facility] Declined Facility cannot provide for patient's needs, Acuity too high N/A [address] [facility] [phone] -- [facility] Declined Facility cannot provide for patient's needs N/A [address] [phone] -- [facility] Declined N/A [address] [facility] [address] [phone] -- [facility] Declined N/A [address] [address] [phone] -- [facility] Declined N/A [address] [facility] [place] [address] [phone] -- [facility] [place] ([facility]) Declined N/A [address] [place] [address] -- [facility] Declined N/A [address] [place] [address] [phone] -- [facility] Declined N/A [address] [facility] [address] [phone] -- [facility] Declined N/A [address] [address] [phone] -- [facility] Declined Facility cannot provide for patient's needs N/A 120 [facility] [phone] -- [facility] Declined N/A [address] [facility] [phone] -- [facility] Declined N/A 1623 [facility] [address] -- [facility] Declined N/A [address] [facility] [address] [phone] -- [facility] Declined Facility cannot provide for patient's needs, Thank you for this referral. N/A ONE [facility] [address] [phone] -- Internal Comment last updated by Gaurav Juarez 10/05/2022 1055 SW called and left VM for Chanel in admissions [phone] [facility] Declined Facility cannot provide for patient's needs N/A 152 [facility] [address] [phone] -- Internal Comment last updated by Yessica Hall, WEB MARKETING SPECIALIST 10/13/2022 1346 They do not accept new TRACH. Trach has to be 6 months old- per Maryan admission [facility] Declined Facility cannot provide for patient's needs N/A [address] [facility] [address] [phone] -- [facility] Declined N/A [address] [place], [facility] [address] [phone] -- Current Capacity last updated by Yu Nguyễn on 04/21/2022 1237 176 Internal Comment last updated by Gaurav Juarez 10/20/2022 0936 SW left VM for admissions 10/20 [facility] Declined Behavior issues or concerns N/A [address] [address] [phone] -- Internal Comment last updated by Gaurav Juarez 10/20/2022 0931 SW called and left message for admissions 10/20 SW called and no option for a voice mail 10/19 [facility] Declined Bed not available, Behavior issues or concerns N/A [address] [facility] [phone] -- Internal Comment last updated by Gaurav Juarez 10/19/2022 0918 SW called and admissions is reviewing 10/19 [facility] Declined N/A 101 [facility] [phone] -- [facility] Declined N/A 1201 [facility] [phone] -- [facility] Declined N/A 5[address] [facility] [address] -- [facility] Declined History N/A [address] [facility] [phone] -- [facility] Declined N/A [address] [facility] [address] [phone] -- [facility] Declined Out of service area N/A [address] [facility] [phone] -- Current Capacity last updated by Rupa Abbott, RN on 11/05/2022 1103 VM left with Admitting to call back for acceptance [facility] Declined No Medicaid beds N/A [address] [facility] [phone] -- [facility] Declined Facility cannot provide for patient's needs N/A [address] [address] [phone] -- [facility] Declined Facility cannot provide for patient's needs N/A [facility] [address] [facility] [address] -- Current Capacity last updated by Myrna Pan on 11/09/2021 0923 Male and Female beds available. , Covid swab needed prior to discharge, Please provide Covid vaccine information, if available., Medicare - Medicaid & Medicaid pending accepted. Most Insurance accepted. [facility] Declined No Medicaid beds N/A [address] [facility] [address] -- [facility] Declined Facility cannot provide for patient's needs N/A [address] [place] [address] -- Internal Comment last updated by Suzy Farmer, RN 11/03/2022 1532 Per ASHWIN Nolasco this information is inaccurate. 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 CM will contact facility for reconsideration CM called back and spoke Zulma. She will do some research and call CM back [facility] Declined Facility cannot provide for patient's needs N/A [facility] [address] [phone] -- [facility] Declined Facility cannot provide for patient's needs, Please call me with questions. [place] [phone] N/A 300 [facility] [address] [phone] -- Current Capacity last updated by Feliciano Zepeda on 10/22/2022 0728 We have 16 beds open, I will be networks computer consultant for the weekend, Feliciano [phone] [facility] Declined Facility cannot provide for patient's needs, Please call me with questions. -[place] [phone] N/A [address] [phone] -- [facility] Declined Facility cannot provide for patient's needs N/A [address] [place] [address] [phone] -- [facility] Declined No Medicaid beds N/A [id number] [address] -- [facility] Declined N/A [address] [facility] [phone] [phone] -- [facility] [place]) Declined No Medicaid beds N/A [address] [place] [address] [phone] -- Selected Continued Care - Prior Encounters Includes continued care and service providers with selected services from prior encounters from 05/30/2022 to 11/05/2022 Discharged on 06/03/2022 Admission date: 05/30/2022 - Discharge disposition: [facility] Facility Destination Service Provider Selected Services Address Phone Fax Patient Preferred [facility] [address] [place] [phone] -- CM spoke with Sally arias. She was requesting update. CM provided her with trach information and supplies she would need. LASHON requested air mattress bed, suction etc. LASHON notified pt sister Adriane and Dr Ricardo READMISSION RISK SCORE is 28 at 3:45 PM 11/05/2022. Anticipated Discharge Date: 11/09/22 Patient/Family provided with list of resources? Yes Preferred Provider / High Quality Network List given?: Yes Reason for provider choice: Unknown Family Support (Name and Phone): Extended Emergency Contact Information Primary Emergency Contact: Adriane Pearson Mobile Relation: Sister Shop Mechanic needed? No Secondary Emergency Contact: Amarjit Tabor [facility] Relation: Brother Transportation at Discharge: Ambulance Equipment at Home: Equipment at Home: Facility Equipment List DME patient requires but does not have: DME Provider: Medication affordability concerns: No Follow Up Appointment: Transportation to MD: Auth Number (if required): [place]: DME: Medications: Transportation: Name: Suzy Farmer RN Phone: [phone] * Jayy Christiansen RN - 11/05/2022 2:22 PM CDT Problem: Impaired Gas Exchange Goal: Resp rate/effort will be within specified limits Outcome: Progressing Problem: Ineffective Airway Clearance Goal: Patent airway Outcome: Progressing Problem: Fall Risk Goal: Fall risk and fall related injury risk are minimized (interventions related to the fall risk can be found in the flowsheet documentation) Outcome: Progressing Problem: Nutrient: Inadequate protein-energy intake Goal: Total intake will meet estimated nutrient needs Outcome: Progressing Problem: Oxygenation/Respiratory Function Goal: Patent airway Outcome: Progressing Goal: Respiratory rate/effort will be within specified limits Outcome: Progressing Problem: Care of Tracheostomy Goal: Tracheostomy tube and site will be maintained Outcome: Progressing Problem: Potential for Infection Goal: Insertion site without signs/symptoms of infection Outcome: Progressing Problem: Knowledge Deficit Goal: Patient/Significant other demonstrates understanding of Tracheostomy Outcome: Progressing Problem: Communication/Dysarthria Goal: STG - Patient will tolerate PMV trials Outcome: Progressing Problem: Pain/Discomfort Goal: Patient exhibits reduced pain/discomfort as evidenced by pain scores Outcome: Progressing Goal: Patient uses pharmacological and non-pharmacological pain management strategies. Outcome: Progressing Goal: Patient verbalizes acceptable level of pain relief and ability to engage in desired activity. Outcome: Progressing Problem: Skin Integrity Goal: Skin integrity is maintained or improved Outcome: Progressing Problem: Daily Care Goal: Daily care needs are met Outcome: Progressing * Suzy Farmer RN - 11/05/2022 2:18 PM CDT Care Coordination Progress Note Anticipated level of care at discharge: Custodial - Skilled Facility Discharge Plan: CM received call from pt CM. Update provided READMISSION RISK SCORE is 28 at 2:19 PM 11/05/2022. Anticipated Discharge Date: 11/09/22 Patient/Family provided with list of resources? Yes Preferred Provider / High Quality Network List given?: Yes Reason for provider choice: Unknown Family Support (Name and Phone): Extended Emergency Contact Information Primary Emergency Contact: BabakAdriane Mobile Relation: Sister Shop Mechanic needed? No Secondary Emergency Contact: Amarjit Tabor [facility] Relation: Brother Transportation at Discharge: Ambulance Equipment at Home: Equipment at Home: Facility Equipment List DME patient requires but does not have: DME Provider: Medication affordability concerns: No Follow Up Appointment: Transportation to MD: Auth Number (if required): [place]: DME: Medications: Transportation: Name: Suzy Farmer RN Phone: [phone] * Suzy Farmer RN - 11/05/2022 1:59 PM CDT Care Coordination Progress Note Anticipated level of care at discharge: Custodial - Skilled Facility Discharge Plan: SNF CM refaxed referral to [phone]. Sally stated she is unable to access Epic referral or the previous fax at this time. CM called back to Sally to confirm delivery and left message to notify CM if another referral had not been received READMISSION RISK SCORE is 28 at 1:59 PM 11/05/2022. Anticipated Discharge Date: 11/09/22 Patient/Family provided with list of resources? Yes Preferred Provider / High Quality Network List given?: Yes Reason for provider choice: Unknown Family Support (Name and Phone): Extended Emergency Contact Information Primary Emergency Contact: Adriane Pearson Mobile Relation: Sister Shop Mechanic needed? No Secondary Emergency Contact: Shant Taborger [facility] Relation: Brother Transportation at Discharge: Ambulance Equipment at Home: Equipment at Home: Facility Equipment List DME patient requires but does not have: DME Provider: Medication affordability concerns: No Follow Up Appointment: Transportation to MD: Auth Number (if required): [place]: DME: Medications: Transportation: Name: Suzy Farmer RN Phone: [phone] * Elmo Caicedo SLP - 11/05/2022 10:30 AM CDT [facility] Passy Diamondhead Valve Evaluation Patient: iB Tabor [facility] Record Number: [id number] Date of :: 1960 Age: [age] year old In addition to the 1:1 evaluation of the patient, additional eval time was spent completing the chart review prior to the assessment, completing the multidisciplinary plan of care and education plan post evaluation and communicating results of the eval to other treatment team members. PPE: n95, gown (MRSA), gloves Impressions: Patient assessed for PMV at bedside. Patient require deep suctioning of trach prior toplacing PMV with copious mucus/secretions suctioned. Patient tolerated PMV for 15 minutes with goodvocal quality, saying his name and ah several times with prompts. ST recommends for patient to only wear PMV for short durations, with supervision, due to copious mucus/secretions. ST will follow patient to assess PMV tolerance while in hospital. PMV Recommendations: Recommend use of PMV during waking hours- only for short duration w/ supervision, due to copious mucus/secretions Discharge Recommendations: TBD, due to acute medical status Speech therapy is recommended for further assessment of speech/language/cognition. Subjective: Mental Status: Lethargic Pain: Patient does not report or appear to be in pain at this time Objective: Tracheostomy Tube: [place] Breathing Status: Trach mask- 8L/min Baseline spO2: 97%+ Phonation with finger occlusion: yes Voice quality: Decreased intensity-if yes above Patient and RN were educated re: effects of trach on phonation and the need for finger occlusion orPMV use to achieve voicing and improve communicative function. Assessment: PMV was placed by REPORTING COORDINATOR and patient was observed wearing valve for approximately 20 minutes. spO2 was97%+. Vocal quality with PMV in place was Decreased intensity. Patient did not exhibit any change in respirations and did not complain of any shortness of breath. Patient was instructed in the valve's proper placement and removal. REPORTING COORDINATOR also educated patient on proper care of valve and instructions for use of valve (removed for sleep). Education: Patient, Nursing and Physician instructed in recommedations and indicated understanding. Use of PMV reviewed with RNJayy. Instructions for use also communicated on patient's whiteboard. Goals: Short Term Goals: Patient to achieve phonation with Passy Diamondhead Valve while on tracheostomy. Studio Artist Goal(s): Patient to be independent/baseline with speech/language/cognitive/swallowing to be able to safely discharge to prior level of care. If patient is discharged from the facility, this note serves as a discharge note if further speech therapy visits did not occur. Elmo Ansari M.A., [facility]-REPORTING COORDINATOR Speech Language Pathologist [phone] * Suzy Farmer RN - 11/05/2022 8:12 AM CDT Care Coordination Progress Note Anticipated level of care at discharge: Custodial - Skilled Facility Discharge Plan: SNF CM received call from [facility]. Refaxed referral per request READMISSION RISK SCORE is 28 at 8:13 AM 11/05/2022. Anticipated Discharge Date: 11/09/22 Patient/Family provided with list of resources? Yes Preferred Provider / High Quality Network List given?: Yes Reason for provider choice: Unknown Family Support (Name and Phone): Extended Emergency Contact Information Primary Emergency Contact: Adriane Pearson Mobile Relation: Sister Shop Mechanic needed? No Secondary Emergency Contact: Amarjit [facility] Relation: Brother Transportation at Discharge: Ambulance Equipment at Home: Equipment at Home: Facility Equipment List DME patient requires but does not have: DME Provider: Medication affordability concerns: No Follow Up Appointment: Transportation to MD: Auth Number (if required): [place]: DME: Medications: Transportation: Name: Suzy Farmer RN Phone: [phone] * Ankur Shen RN - 11/05/2022 12:53 AM CDT 21 is correct, not 28 * Ankur Shen RN - 11/05/2022 12:53 AM CDT Problem: Fall Risk Goal: Fall risk and fall related injury risk are minimized (interventions related to the fall risk can be found in the flowsheet documentation) Outcome: Progressing * Suzy Farmer RN - 11/04/2022 3:19 PM CDT Care Coordination Progress Note Anticipated level of care at discharge: Custodial - Skilled Facility Discharge Plan: CM called Sally with admissions. She is currently in a meeting. CM left message requesting callback. READMISSION RISK SCORE is 28 at 3:19 PM 11/04/2022. Anticipated Discharge Date: 11/09/22 Patient/Family provided with list of resources? Yes Preferred Provider / High Quality Network List given?: Yes Reason for provider choice: Unknown Family Support (Name and Phone): Extended Emergency Contact Information Primary Emergency Contact: Adriane Pearson Mobile Relation: Sister Shop Mechanic needed? No Secondary Emergency Contact: Amarjit [facility] Relation: Brother Transportation at Discharge: Ambulance Equipment at Home: Equipment at Home: Facility Equipment List DME patient requires but does not have: DME Provider: Medication affordability concerns: No Follow Up Appointment: Transportation to MD: Auth Number (if required): NH: DME: Medications: Transportation: Name: Suzy Farmer RN Phone: [phone] * Gaurav Juarez MSW - 11/04/2022 3:10 PM CDT Summary Note Discharge Level of Care:SNF Discharge Destination:TBD Phone Number: Fax Number: Insurance Auth: Anticipated Mode of Transportation: EMS Contacts (Name, relationship, phone #): Adriane [phone] Anticipated DC Date:TBD Pending Needs: Comments: SW has found two accepting facilities ([facility] and [facility]). SW to continue to follow for SNF placement. CLARITA Ram 11/04/2022 * Suzy Farmer RN - 11/04/2022 2:55 PM CDT Care Coordination Progress Note Anticipated level of care at discharge: Custodial - Skilled Facility Discharge Plan: SNF CM received phone call from pt sister Adriane She is requesting a referral be sent to [facility] in [place]. CM explained they have denied 10/20. CM sent another referral per pt request Continued Care and Services - Admitted Since 08/28/2022 Destination Service Provider Request Status Selected Services Address Phone Fax [facility] Accepted N/A [address] [place] [address] [phone] -- [facility] Considering N/A [address] [place] [address] -- Michelle Gibbons Pending - Request Sent N/A [facility] [phone] -- [facility] Pending - Request Sent N/A [address] [facility] [address] -- [facility] Pending - Request Sent N/A 29[address] [facility] [address] [phone] -- [facility] Pending - Request Sent N/A [address] [facility] [phone] -- [facility] Pending - Request Sent N/A 161 [facility] [address] [phone] -- [facility] Pending - Request Sent N/A 770 [facility] [phone] -- [facility] Pending - Request Sent N/A 140[address] [facility] [address] [phone] -- [facility] Pending - Request Sent N/A [address] [facility] [address] -- [facility] Pending - Request Sent N/A [address] [facility] [address] [phone] -- [facility] Pending - Request Sent N/A [address] [place] [phone] -- [facility] Pending - Request Sent N/A 201 [facility] [address] [phone] -- [facility] Pending - Request Sent N/A [address], [facility] [address] [phone] -- [facility] Pending - Request Sent N/A 5 [facility], [facility] [address] -- [facility] Pending - Request Sent N/A 1700 [facility] [address] [phone] -- [facility] [place] Pending - Request Sent N/A [address] [facility] [phone] -- [facility] Pending - Request Sent N/A 1000 [facility] [address] [phone] -- [facility] Pending - Request Sent N/A 701 [facility] [phone] -- [facility] Pending - Request Sent N/A 800 [facility] [address] -- [facility] Pending - Request Sent N/A [address] [place] [address] -- [facility] Pending - Request Sent N/A [address] [facility] [address] -- [facility] Pending - Request Sent N/A [address] [facility] [phone] -- [facility] Pending - Request Sent N/A 818 [facility] [address] [phone] -- [place] [address] Pending - Request Sent N/A 2950 [facility] [phone] -- [facility] Pending - Request Sent N/A [address] S [facility] [place] [address] -- [facility] Pending - Request Sent N/A 614 N [facility] [phone] -- [facility] Pending - Request Sent N/A 3900 [facility] [address] [phone] -- [facility] Pending - Request Sent N/A 3500 [facility] [phone] -- [facility] Pending - Request Sent N/A [address] [facility] [facility] [place] [place] [phone] -- [facility] Pending - Request Sent N/A 400 E [facility] [address] -- [facility] Declined Facility cannot provide for patient's needs, Acuity too high N/A 601 [facility] [phone] -- [facility] Declined Facility cannot provide for patient's needs N/A 40 N [facility] [address] -- [facility] Declined N/A [address] [facility] [address] [phone] -- [facility] Declined N/A [address] [facility] [address] [phone] -- [facility] Declined N/A [address] [place] [address] [phone] -- [facility] [place] [facility]) Declined N/A [address] [place] [address] [phone] -- [facility] Declined N/A [address] [place] [address] -- [facility] Declined N/A 253 [facility] [address] [phone] -- [facility] Declined N/A [address] [address] [phone] -- [facility] Declined Facility cannot provide for patient's needs N/A 120 [facility] [phone] -- [facility] Declined N/A [address] S [facility] [address] -- [facility] Declined N/A 1623 [facility] [address] -- [facility] Declined N/A 107 S [facility] [address] [phone] -- [facility] Declined Facility cannot provide for patient's needs, Thank you for this referral. N/A ONE [facility] [address] [phone] -- Internal Comment last updated by Gaurav Juarez 10/05/2022 1055 SW called and left VM for Chanel in admissions [phone] [facility] Declined Facility cannot provide for patient's needs N/A 152 [facility] [address] [phone] -- Internal Comment last updated by Yessica Hall MSW 10/13/2022 1346 They do not accept new TRACH. Trach has to be 6 months old- per Maryan admission [facility] Declined Facility cannot provide for patient's needs N/A [address] [facility] [address] [phone] -- [facility] Declined N/A 3490 [facility] [phone] -- Current Capacity last updated by Yu gNuyễn on 04/21/2022 1237 176 Internal Comment last updated by Gaurav Juarez 10/20/2022 0936 SW left VM for admissions 10/20 [facility])Declined Facility cannot provide for patient's needs N/A 6277 [facility] [phone] -- Current Capacity last updated by Yu Nguyễn on 04/21/2022 1237 118 Internal Comment last updated by Gaurav Juarez 10/20/2022 0933 SW called and left VM for admissions 10/20 [facility] Declined Behavior issues or concerns N/A [address] [address] [phone] -- Internal Comment last updated by Gaurav Juarez 10/20/2022 0931 SW called and left message for admissions 10/20 SW called and no option for a voice mail 10/19 [facility] Declined Bed not available, Behavior issues or concerns N/A [address] [facility] [phone] -- Internal Comment last updated by Gaurav Juraez 10/19/2022 0918 SW called and admissions is reviewing 10/19 [facility] Declined N/A 101 [facility] [id number] -- [facility] Declined N[facility]A 1201 [facility] [address] [phone] -- [facility] Declined N/A 596 [facility] [phone] -- [facility] Declined History N/A [address] [place] [address] -- [facility] Declined N/A 4930 [facility] [phone] -- [facility] Declined Out of service area N/A [address] [facility] [phone] -- [facility] Declined No Medicaid beds N/A 900 N. [facility] [phone] -- [facility] Declined Facility cannot provide for patient's needs N/A [address] [address] [phone] -- [facility] Declined Facility cannot provide for patient's needs N/A [facility] 501 [facility] [address] -- Current Capacity last updated by Myrna Pan on 11/09/2021 0923 Male and Female beds available. , Covid swab needed prior to discharge, Please provide Covid vaccine information, if available., Medicare - Medicaid & Medicaid pending accepted. Most Insurance accepted. [facility] Declined No Medicaid beds N/A [address] [facility] [address] [phone] -- [facility] Declined Facility cannot provide for patient's needs N/A [address] [place] [address] [phone] -- Internal Comment last updated by Suzy Farmer, RN 11/03/2022 1532 Per ASHWIN Nolasco this information is inaccurate. 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 CM will contact facility for reconsideration CM called back and spoke Zulma. She will do some research and call CM back [facility] Declined Facility cannot provide for patient's needs N/A [facility] [address] [phone] -- [facility] Declined Facility cannot provide for patient's needs, Please call me with questions. [place] [phone] N/A 300 [facility] [address] -- Current Capacity last updated by Feliciano Zepeda on 10/22/2022 0728 We have 16 beds open, I will be networks computer consultant for the weekend, Feliciano [phone] [facility] Declined Facility cannot provide for patient's needs, Please call me with questions. -[place] [phone] N/A [address] [address] -- [facility] Declined Facility cannot provide for patient's needs N/A [address] [facility] [address] [phone] -- [facility] Declined No Medicaid beds N/A [id number] [address] -- [facility] Declined N/A 524 [facility] [address] -- [phone] -- [facility]) Declined No Medicaid beds N/A 1251 [facility] [place] [address] [phone] -- Selected Continued Care - Prior Encounters Includes continued care and service providers with selected services from prior encounters from 05/30/2022 to 11/04/2022 Discharged on 06/03/2022 Admission date: 05/30/2022 - Discharge disposition: [facility] Facility Destination Service Provider Selected Services Address Phone Fax [facility] [address] [place] [address] -- READMISSION RISK SCORE is 28 at 2:56 PM 11/04/2022. Anticipated Discharge Date: 11/09/22 Patient/Family provided with list of resources? Yes Preferred Provider / High Quality Network List given?: Yes Reason for provider choice: Unknown Family Support (Name and Phone): Extended Emergency Contact Information Primary Emergency Contact: Adriane Pearson Mobile Relation: Sister Shop Mechanic needed? No Secondary Emergency Contact: Amarjit [facility] Relation: Brother Transportation at Discharge: Ambulance Equipment at Home: Equipment at Home: Facility Equipment List DME patient requires but does not have: DME Provider: Medication affordability concerns: No Follow Up Appointment: Transportation to MD: Katerina Number (if required): NH: DME: Medications: Transportation: Name: Suzy Farmer RN Phone: [phone] * Carole Shea RN - 11/04/2022 2:22 PM CDT Problem: Impaired Gas Exchange Goal: Resp rate/effort will be within specified limits Outcome: Progressing Problem: Ineffective Airway Clearance Goal: Patent airway Outcome: Progressing Problem: Fall Risk Goal: Fall risk and fall related injury risk are minimized (interventions related to the fall risk can be found in the flowsheet documentation) Outcome: Progressing Problem: Nutrient: Inadequate protein-energy intake Goal: Total intake will meet estimated nutrient needs Outcome: Progressing Problem: Oxygenation/Respiratory Function Goal: Patent airway Outcome: Progressing Problem: Oxygenation/Respiratory Function Goal: Respiratory rate/effort will be within specified limits Outcome: Progressing Problem: Care of Tracheostomy Goal: Tracheostomy tube and site will be maintained Outcome: Progressing Problem: Potential for Infection Goal: Insertion site without signs/symptoms of infection Outcome: Progressing Problem: Daily Care Goal: Daily care needs are met Outcome: Progressing Problem: Skin Integrity Goal: Skin integrity is maintained or improved Outcome: Progressing Problem: Pain/Discomfort Goal: Patient verbalizes acceptable level of pain relief and ability to engage in desired activity. Outcome: Progressing Problem: Pain/Discomfort Goal: Patient uses pharmacological and non-pharmacological pain management strategies. Outcome: Progressing Problem: Pain/Discomfort Goal: Patient exhibits reduced pain/discomfort as evidenced by pain scores Outcome: Progressing Problem: Communication/Dysarthria Goal: STG - Patient will tolerate PMV trials Outcome: Progressing * Suzy Farmer RN - 11/04/2022 12:25 PM CDT Care Coordination Progress Note Anticipated level of care at discharge: Custodial - Skilled Facility Discharge Plan: Continued Care and Services - Admitted Since 08/28/2022 Destination Service Provider Request Status Selected Services Address Phone Fax Patient Preferred [facility] Accepted N/A [address] [place] [address] [phone] -- [facility] Considering N/A [address] [place] [phone] -- Michelle Gibbons Pending - Request Sent N/A 2 [facility] [phone] -- [facility] Pending - Request Sent N/A 3421 [facility] [phone] -- [facility] Pending - Request Sent N/A 29[address] [facility] [address] -- [facility] Pending - Request Sent N/A [address] [facility] [address] -- [facility] Pending - Request Sent N/A 161 [facility] [address] [phone] -- [facility] Pending - Request Sent N/A 770 [facility] [phone] -- [facility] Pending - Request Sent N/A 140[address]. [facility] [address] [phone] -- [facility] Pending - Request Sent N/A [address] [facility] [phone] -- [facility] Pending - Request Sent N/A [address] [facility] [address] [phone] -- [facility] Pending - Request Sent N/A [address] [place] [phone] -- [facility] Pending - Request Sent N/A 201 [facility] [address] [phone] -- [facility] Pending - Request Sent N/A [address] [address] [phone] -- [facility] Pending - Request Sent N/A 5 [facility] [phone] -- [facility] Pending - Request Sent N/A 1700 [facility] [address] -- [facility] [place] Pending - Request Sent N/A [address], [facility] [phone] -- [facility] Pending - Request Sent N/A 1000 [facility] [address] [phone] -- [facility] Pending - Request Sent N/A 701 I[address] [facility] [phone] -- [facility] Pending - Request Sent N/A 800 E. [facility] [address] -- [facility] Pending - Request Sent N/A [address] [place] [address] [phone] -- [facility] Pending - Request Sent N/A [address] [facility] [address] -- [facility] Pending - Request Sent N/A [address] [facility] [phone] -- [facility] Pending - Request Sent N/A 818 [facility] [phone] -- [facility] Pending - Request Sent N/A [address] [phone] -- [place] [address] Pending - Request Sent N/A 2950 [facility] [phone] -- [facility] Pending - Request Sent N/A [address] [place] [address] [phone] -- [facility] Pending - Request Sent N/A 614 N [facility] [phone] -- [facility] Pending - Request Sent N/A 3900 [facility] [address] [phone] -- [facility] Pending - Request Sent N/A 3500 [facility] [phone] -- [facility] Pending - Request Sent N/A [address] [facility] [facility] [place] [place] [place] [phone] -- [facility] Pending - Request Sent N/A [address] E [facility] [address] [phone] -- [facility] Declined Facility cannot provide for patient's needs, Acuity too high N/A [address] [facility] [address] [phone] -- [facility] Declined Facility cannot provide for patient's needs N/A [address] 64[facility] [phone] -- [facility] Declined N/A 393 [facility] [address] [phone] -- [facility] [place] Declined N/A [address] [address] [phone] -- [facility] Declined N/A 3[address] [place] [address] [phone] -- [facility] [place] [facility]) Declined N/A 9[address] 10[address] [facility] [address] -- [facility] Declined N/A [address] [place] [address] -- [facility] Declined N/A 253 [facility] [address] [phone] -- [facility] Declined N/A [address] [address] [phone] -- [facility] Declined Facility cannot provide for patient's needs N/A 120 [facility] [address] -- [facility] Declined N/A [address] S [facility] [phone] -- [facility] Declined N/A 1623 [facility] [address] -- [facility] Declined N/A 107 S [facility] 089365 -- [facility] Declined Facility cannot provide for patient's needs, Thank you for this referral. N/A ONE [facility] [address] [phone] -- Internal Comment last updated by Gaurav Juarez 10/05/2022 1055 SW called and left for Chanel in admissions [phone] [facility] Declined Facility cannot provide for patient's needs N/A 152 [facility] [address] [phone] -- Internal Comment last updated by Yessica Hall, WEB MARKETING SPECIALIST 10/13/2022 1346 They do not accept new TRACH. Trach has to be 6 months old- per Maryan admission [facility] Declined Facility cannot provide for patient's needs N/A [address] [facility] [address] -- [facility]) Declined N/A 3490 [facility] [address] [phone] -- Current Capacity last updated by Yu Nguyễn on 04/21/2022 1237 176 Internal Comment last updated by Gaurav Juarez 10/20/2022 0936 SW left VM for admissions 10/20 [facility])Declined Facility cannot provide for patient's needs N/A 6[address] [facility] [address] -- Current Capacity last updated by Yu Nguyễn on 04/21/2022 1234 118 Internal Comment last updated by Gaurav Juarez 10/20/2022 0933 SW called and left VM for admissions 10/20 [facility] Declined Behavior issues or concerns N/A [address] [place] [address] [phone] -- Internal Comment last updated by Gaurav Juarez 10/20/2022 0931 SW called and left message for admissions 10/20 SW called and no option for a voice mail 10/19 [facility] Declined Bed not available, Behavior issues or concerns N/A [address] [facility] [phone] -- Internal Comment last updated by Garuav Juarez 10/19/2022 0918 SW called and admissions is reviewing 10/19 [facility] Declined N/A 101 [facility] [id number] -- [facility] Decl[facility] N/A 1201 [facility] [id number] -- [facility] Declined N/A 5[address] [facility] [address] -- [facility] ([facility]) Declined History N/A [address] [place] [address] -- [facility] [address] Declined N/A 49[address] [facility] [id number] -- [facility] Declined Out of service area N/A [address] [facility] [phone] -- [facility] Declined No Medicaid beds N/A [address] [facility] [phone] -- [facility] Declined Facility cannot provide for patient's needs N/A [address] [address] [phone] -- [facility] Declined Facility cannot provide for patient's needs N/A [facility] [address] [facility] [phone] -- Current Capacity last updated by Myrna Pan on 11/09/2021 0923 Male and Female beds available. , Covid swab needed prior to discharge, Please provide Covid vaccine information, if available., Medicare - Medicaid & Medicaid pending accepted. Most Insurance accepted. [facility] Declined No Medicaid beds N/A [address] [facility] [address] [phone] -- [facility] Declined Facility cannot provide for patient's needs N/A [address] [place] [address] [phone] -- Internal Comment last updated by Suzy Farmer RN 11/03/2022 1532 Per ASHWIN Nolasco this information is inaccurate. 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 CM will contact facility for reconsideration CM called back and spoke Zulma. She will do some research and call CM back [facility] Declined Facility cannot provide for patient's needs N/A [facility] [address] -- [facility] Declined Facility cannot provide for patient's needs, Please call me with questions. [place] [phone] N/A [address] [facility] [address] [phone] -- Current Capacity last updated by Feliciano Zepeda on 10/22/2022 0728 We have 16 beds open, I will be networks computer consultant for the weekend, Feliciano [phone] [facility] Declined Facility cannot provide for patient's needs, Please call me with questions. -[place] [phone] N/A [address] [phone] -- [facility] Declined Facility cannot provide for patient's needs N/A [address] [place] [address] [phone] -- [facility] Declined N/A 524 [facility] [address] -- [phone] -- [facility] [place]) Declined No Medicaid beds N/A [address] [place] [address] [phone] -- Selected Continued Care - Prior Encounters Includes continued care and service providers with selected services from prior encounters from 05/30/2022 to 11/04/2022 Discharged on 06/03/2022 Admission date: 05/30/2022 - Discharge disposition: [facility] Facility Destination Service Provider Selected Services Address Phone Fax Patient Preferred [facility] [address] [facility] [address] -- Pt has an accepting facility. CM phoned pt sister Adriane to discuss. Adriane wants a referral sent to [place]. CM had sent referral to [facility] ( [place]) CM spoke to admissions and they had declined pt prior due to history and they are unable to take trachs Adriane reports she would have an issue with traveling due to distance. She reports she wants to lookat another facility to see if they take trachs. Adriane would not disclose the name of the facility stating she is not sure of the name. She wants to speak to CM when she arrives to the hospital today. READMISSION RISK SCORE is 28 at 12:25 PM 11/04/2022. Anticipated Discharge Date: 11/09/22 Patient/Family provided with list of resources? Yes Preferred Provider / High Quality Network List given?: Yes Reason for provider choice: Unknown Family Support (Name and Phone): Extended Emergency Contact Information Primary Emergency Contact: Alton Pearsonel Mobile Relation: Sister Shop Mechanic needed? No Secondary Emergency Contact: Amarjit Tabor [facility] Relation: Brother Transportation at Discharge: Ambulance Equipment at Home: Equipment at Home: Facility Equipment List DME patient requires but does not have: DME Provider: Medication affordability concerns: No Follow Up Appointment: Transportation to MD: Auth Number (if required): [place]: DME: Medications: Transportation: Name: Suzy Farmer RN Phone: [phone] * Suzy Farmer RN - 11/04/2022 10:17 AM CDT Care Coordination Progress Note Anticipated level of care at discharge: Custodial - Skilled Facility Discharge Plan: SNF CM was notified that Raul [phone] with [facility] has come to see pt. SW will follow up with determination READMISSION RISK SCORE is 28 at 10:17 AM 11/04/2022. Anticipated Discharge Date: 11/05/22 Patient/Family provided with list of resources? Yes Preferred Provider / High Quality Network List given?: Yes Reason for provider choice: Unknown Family Support (Name and Phone): Extended Emergency Contact Information Primary Emergency Contact: Adriane Pearson Mobile Relation: Sister Shop Mechanic needed? No Secondary Emergency Contact: Amarjit Tabor [facility] Relation: Brother Transportation at Discharge: Ambulance Equipment at Home: Equipment at Home: Facility Equipment List DME patient requires but does not have: DME Provider: Medication affordability concerns: No Follow Up Appointment: Transportation to MD: Auth Number (if required): [place]: DME: Medications: Transportation: Name: Suzy Farmer RN Phone: [phone] * Vicky Silva MD - 11/04/2022 8:02 AM CDT INTERNAL MEDICINE PROGRESS NOTE Admit Date: 08/28/2022 Progress Note Length of Stay 68 Day(s) Subjective: Seen in the morning. Mouthing words, but unable to understand. Able to move right hand but unclear if asking for anything specific. Physical exam and pointed yes/no questions led to no obvious answer. Objective: Temp: [97.2 ??F (36.2 ??C)-97.3 ??F (36.3 ??C)] 97.3 ??F (36.3 ??C) Pulse: [96-99] 96 Resp: [17-18] 17 BP: (137-141)/(84-88) 141/88 O2 %: [21 %] 21 % Weight change: Intake/Output Summary (Last 24 hours) at 11/04/2022 0802 Last data filed at 11/04/2022 0537 Gross per 24 hour Intake 810 ml Output 2500 ml Net -1690 ml GEN No acute distress, lying in bed comfortably HEENT NC, neck supple, sclera anicteric, dry mucosa CARDIO Regular rate rhythm, no murmurs appreciated RESP Normal work of breathing, on room air, trach ABD Soft, non distended, non tender, positive BS, +PEG EXT No edema. BKA of LLE SKIN Warm, no obvious new rashes NEURO Awake. Responds to verbal stimuli. Interactive PSYCH Appropriate mood and affect Data Review: no new labs last 24 hours IMAGING/PROCEDURES: no new imaging last 24 hours Medications: ??? artificial tears Each Eye q8h ??? atorvastatin 40 mg Enteral Tube QDAY ??? chlorhexidine 15 mL Mouth/Throat BID ??? cloBAZam 20 mg Enteral Tube BID ??? divalproex sprinkle 500 mg Enteral Tube q6h ??? enoxaparin 40 mg Subcutaneous QDAY ??? guaiFENesin 10 mL Enteral Tube q6h ??? lacosamide 200 mg Enteral Tube BID ??? levalbuterol 1.25 mg Inhalation q6h ??? levETIRAcetam 2,000 mg Enteral Tube BID ??? scopolamine 1 patch Transdermal q72h And ??? scopolamine patch placement confirmation Transdermal BID ??? senna-docusate 1 tablet Enteral Tube BID PRN Meds: ??? acetaminophen ??? dextrose IV for hypoglycemia OR dextrose IV for hypoglycemia ??? glucagon ??? glucose (Diabetic Use) ??? glucose (Diabetic Use) gel ??? glucose chew tab Bacterial pneumonia (POA: Yes) History of CVA (cerebrovascular accident) (POA: Yes) Paroxysmal tachycardia, unspecified (CMS/HCC) (POA: Yes) Essential (primary) hypertension (POA: Yes) Seizure disorder (CMS/HCC) (POA: Yes) Sepsis without acute organ dysfunction (CMS/HCC) (POA: Yes) Severe protein-calorie malnutrition (CMS/HCC) (POA: Yes) Tachypnea (POA: Yes) Chronic respiratory failure with hypoxia (CMS/HCC) (POA: Yes) Pressure ulcer of right heel, stage 3 (CMS/HCC) (POA: Yes) Dementia, vascular (CMS/HCC) (POA: Yes) Assessment/Plan: Bi Tabor is a 62 year old male Hx CVA w/ L sided residual deficits, seizure disorder, dementia,dysphagia w/ recurrent aspiration s/p PEG, zenker divertiuculum s/p diverticulectomy 2022, chronic hypoxic respiratory faiure s/p trach 06/2022, PVD s/p L AKA c/b nonhealing foot wound, HTN who presented to [facility] 08[facility]28 with shortness of breath, tachypnea, and increased WOB d/t lack of suction instruments at SNF. Hospitalized with presumed bacteremia (due to Staphylococcus capitis) and iqsky-ts-fmlxoitsboayovkzhr failure with hypoxia. Hospital course complicated by hospital-acquired bacterial pneumonia/tracheitis due to Pseudomonas aeruginosa and Acinetobacter baummannii. On admission, no elevated WBC, afebrile but??CXR w/ large R pleural effusion, R lung atelectasis, RUL GGO. Patient was started on broad spectrum abx (vanc, cefe). BCX + staph capitis, SpCx + MRSA andpseudomonas. UCx + pseudomonas. TTE negative for vegetations. Hospital course c/b mucus plugging requiring bronch 09/08, recurrent pseudomonas PNA (repeat SpCx 09/09 + pseudomonas resistant to cefepime).??Antibiotics switched to??meropenem??(09/10-09/17).??Weaned off ventilation in ICU. Tolerated trachcollar and transferred to the floor. Pt is stable and waiting for placement. Dshwg-fy-rjyzrom respiratory failure with hypoxia - Resolved Chronic respiratory failure (CRF) with hypoxia Bacterial PNA due to S. capitis- resolved HCAP- resolved -on Trach collar, supplemental O2 to maintain Sats >92% -bronchial hygiene -on levalbuterol nebulizer 1.25 mg Qd -s/p 10 days of meropenem on 09/19 Hx Cerebrovascular accident (CVA): Atorvastatin 40 mg ?? Seizure disorder: on levetiracetam 200 mg BID, divalproex 500 mg Q6, lacosamide 200 mg BID, clobazam 20 mg BID Essential (primary) hypertension (HTN) hold, as normotensive ?? Severe Protein-calorie malnutrition Dysphagia Enteral feedings via PEG tube -needs cuff deflation (can't due to copious amount of secretion, to call speech back for PMV) Pressure ulcer of right (R) heel, stage 3- POA: follow rn document improvement specialist instructions Access: Peripheral IVs Diet: NPO no exception. TF F/E/N: keep K 3.5-4.0 meq, Mg~2.0 mg/dl, Phosphorous 3.0-4.0 mmol/l Ppx: lovenox CODE STATUS: FULL CODE Disposition: PT/OT, speech and nutrition notes reviewed and care discussed. Plan for rehab Vicky Silva MD General Internal Medicine 11/04/2022 8:02 AM >40 minutes spent on the care of this patient and/or guardian. > 50% was spent in counseling and/or coordination of care that included the patient, family and consults. * Carole Shea RN - 11/03/2022 12:43 PM CDT Problem: Impaired Gas Exchange Goal: Resp rate/effort will be within specified limits Outcome: Progressing Problem: Ineffective Airway Clearance Goal: Patent airway Outcome: Progressing Problem: Fall Risk Goal: Fall risk and fall related injury risk are minimized (interventions related to the fall risk can be found in the flowsheet documentation) Outcome: Progressing Problem: Nutrient: Inadequate protein-energy intake Goal: Total intake will meet estimated nutrient needs Outcome: Progressing Problem: Oxygenation/Respiratory Function Goal: Patent airway Outcome: Progressing Problem: Oxygenation/Respiratory Function Goal: Respiratory rate/effort will be within specified limits Outcome: Progressing Problem: Care of Tracheostomy Goal: Tracheostomy tube and site will be maintained Outcome: Progressing Problem: Potential for Infection Goal: Insertion site without signs/symptoms of infection Outcome: Progressing Problem: Knowledge Deficit Goal: Patient/Significant other demonstrates understanding of Tracheostomy Outcome: Progressing Problem: Communication/Dysarthria Goal: STG - Patient will tolerate PMV trials Outcome: Progressing Problem: Pain/Discomfort Goal: Patient exhibits reduced pain/discomfort as evidenced by pain scores Outcome: Progressing Problem: Pain/Discomfort Goal: Patient uses pharmacological and non-pharmacological pain management strategies. Outcome: Progressing Problem: Pain/Discomfort Goal: Patient verbalizes acceptable level of pain relief and ability to engage in desired activity. Outcome: Progressing Problem: Skin Integrity Goal: Skin integrity is maintained or improved Outcome: Progressing Problem: Daily Care Goal: Daily care needs are met Outcome: Progressing * Vicky Silva MD - 11/03/2022 10:05 AM CDT INTERNAL MEDICINE PROGRESS NOTE Admit Date: 08/28/2022 Progress Note Length of Stay 67 Day(s) Subjective: Seen in the morning. Mouthing words, very soft spoken, unable to Make out speech. Asked to have mouth wiped, waiting for RN to come back to room. Shook head no when asked if I could help with anything. Objective: Temp: [97.5 ??F (36.4 ??C)-98.1 ??F (36.7 ??C)] 97.5 ??F (36.4 ??C) Pulse: [89-100] 100 Resp: [16-18] 16 BP: (126-161)/(77-98) 161/98 O2 %: [21 %] 21 % Weight change: Intake/Output Summary (Last 24 hours) at 11/03/2022 1005 Last data filed at 11/03/2022 0118 Gross per 24 hour Intake 50 ml Output -- Net 50 ml GEN No acute distress, lying in bed comfortably HEENT NC, neck supple, sclera anicteric, moist mucosa CARDIO Regular rate rhythm, no murmurs appreciated RESP Normal work of breathing, on room air, trach ABD Soft, non distended, non tender, positive BS, +PEG EXT No edema. BKA of LLE SKIN Warm, no obvious new rashes NEURO Awake. Responds to verbal stimuli. Interactive PSYCH Appropriate mood and affect Data Review: no new labs last 24 hours IMAGING/PROCEDURES: no new imaging last 24 hours Medications: ??? artificial tears Each Eye q8h ??? atorvastatin 40 mg Enteral Tube QDAY ??? chlorhexidine 15 mL Mouth/Throat BID ??? cloBAZam 20 mg Enteral Tube BID ??? divalproex sprinkle 500 mg Enteral Tube q6h ??? enoxaparin 40 mg Subcutaneous QDAY ??? guaiFENesin 10 mL Enteral Tube q6h ??? lacosamide 200 mg Enteral Tube BID ??? levalbuterol 1.25 mg Inhalation q6h ??? levETIRAcetam 2,000 mg Enteral Tube BID ??? scopolamine 1 patch Transdermal q72h And ??? scopolamine patch placement confirmation Transdermal BID ??? senna-docusate 1 tablet Enteral Tube BID PRN Meds: ??? acetaminophen ??? dextrose IV for hypoglycemia OR dextrose IV for hypoglycemia ??? glucagon ??? glucose (Diabetic Use) ??? glucose (Diabetic Use) gel ??? glucose chew tab Bacterial pneumonia (POA: Yes) History of CVA (cerebrovascular accident) (POA: Yes) Paroxysmal tachycardia, unspecified (CMS/HCC) (POA: Yes) Essential (primary) hypertension (POA: Yes) Seizure disorder (CMS/HCC) (POA: Yes) Sepsis without acute organ dysfunction (CMS/HCC) (POA: Yes) Severe protein-calorie malnutrition (CMS/HCC) (POA: Yes) Tachypnea (POA: Yes) Chronic respiratory failure with hypoxia (CMS/HCC) (POA: Yes) Pressure ulcer of right heel, stage 3 (CMS/HCC) (POA: Yes) Dementia, vascular (CMS/HCC) (POA: Yes) Assessment/Plan: Bi Tabor is a 62 year old male Hx CVA w/ L sided residual deficits, seizure disorder, dementia,dysphagia w/ recurrent aspiration s/p PEG, zenker divertiuculum s/p diverticulectomy 2022, chronic hypoxic respiratory faiure s/p trach 06/2022, PVD s/p L AKA c/b nonhealing foot wound, HTN who presented to [facility] 08[facility] with shortness of breath, tachypnea, and increased WOB d/t lack of suction instruments at SNF. Hospitalized with presumed bacteremia (due to Staphylococcus capitis) and qnkbi-ie-ddwjgiwtwwlqvpvqkx failure with hypoxia. Hospital course complicated by hospital-acquired bacterial pneumonia/tracheitis due to Pseudomonas aeruginosa and Acinetobacter baummannii. On admission, no elevated WBC, afebrile but??CXR w/ large R pleural effusion, R lung atelectasis, RUL GGO. Patient was started on broad spectrum abx (vanc, cefe). BCX + staph capitis, SpCx + MRSA andpseudomonas. UCx + pseudomonas. TTE negative for vegetations. Hospital course c/b mucus plugging requiring bronch 09/08, recurrent pseudomonas PNA (repeat SpCx 09/09 + pseudomonas resistant to cefepime).??Antibiotics switched to??meropenem??(09/10-09/17).??Weaned off ventilation in ICU. Tolerated trachcollar and transferred to the floor. Pt is stable and waiting for placement. Dfxqf-fw-scugsie respiratory failure with hypoxia - Resolved Chronic respiratory failure (CRF) with hypoxia Bacterial PNA due to S. capitis- resolved HCAP- resolved -on Trach collar, supplemental O2 to maintain Sats >92% -bronchial hygiene -on levalbuterol nebulizer 1.25 mg Qd -s/p 10 days of meropenem on 09/19 Hx Cerebrovascular accident (CVA): Atorvastatin 40 mg ?? Seizure disorder: on levetiracetam 200 mg BID, divalproex 500 mg Q6, lacosamide 200 mg BID, clobazam 20 mg BID Essential (primary) hypertension (HTN) hold, as normotensive ?? Severe Protein-calorie malnutrition Dysphagia Enteral feedings via PEG tube -needs cuff deflation (can't due to copious amount of secretion, to call speech back for PMV) Pressure ulcer of right (R) heel, stage 3- POA: follow rn document improvement specialist instructions Access: Peripheral IVs Diet: NPO no exception. TF F/E/N: keep K 3.5-4.0 meq, Mg~2.0 mg/dl, Phosphorous 3.0-4.0 mmol/l Ppx: lovenox CODE STATUS: FULL CODE Disposition: PT/OT, speech and nutrition notes reviewed and care discussed. Plan for rehab Vicky Silva MD General Internal Medicine 11/03/2022 10:05 AM >50 minutes spent on the care of this patient and/or guardian. > 50% was spent in counseling and/or coordination of care that included the patient, family and consults. * Suzy Farmer RN - 11/03/2022 9:59 AM CDT Care Coordination Progress Note Anticipated level of care at discharge: Custodial - Skilled Facility Discharge Plan: SNF. Family refusing placement in [place] at this time. CM/SW sent multiple referrals and will cont to follow for dc READMISSION RISK SCORE is 27 at 10:00 AM 11/03/2022. Anticipated Discharge Date: 11/05/22 Patient/Family provided with list of resources? Yes Preferred Provider / High Quality Network List given?: Yes Reason for provider choice: Unknown Family Support (Name and Phone): Extended Emergency Contact Information Primary Emergency Contact: Adriane Pearson Mobile Relation: Sister Shop Mechanic needed? No Secondary Emergency Contact: Amarjit Tabor [facility] Relation: Brother Patient is alert & orientated or has capacity for decision making: Yes If No , Legal or Designated Decision Maker: N/A Transportation at Discharge: Ambulance Equipment at Home: Equipment at Home: Facility Equipment List DME patient requires but does not have: DME Provider: Medication affordability concerns: No Follow Up Appointment: Transportation to MD: Auth Number (if required): [place]: DME: Medications: Transportation: Name: Suzy Farmer RN Phone: [phone] * Gaurav Juarez, WEB MARKETING SPECIALIST - 11/03/2022 9:58 AM CDT New Facility Placement Referral source: PT/OT Date of referral:11/03 Admitted from: SNF Special Needs: Patient Goal (short term and prison): Short term Level of Care (SNF/Medicaid NH/Rehab/Penitentiary Care/LTACH): SNF Spoke with (Phone number, if not patient. Family participation encouraged): Family Contacted: No List of facilities provided (patient preference and geographic preference): No Referrals initiated: Continued Care and Services - Admitted Since 08/28/2022 Destination Service Provider Request Status Selected Services Address Phone Fax Patient Preferred Michelle Gibbons Pending - Request Sent N/A 2 [facility] [address] -- [facility] Pending - Request Sent N/A [address] [facility] [phone] -- [facility] Pending - Request Sent N/A [address] [facility] [address] -- [facility] Pending - Request Sent N/A [address] [place] [address] [phone] -- [facility] Pending - Request Sent N/A [address] [phone] -- [facility] Pending - Request Sent N/A [address] [address] [phone] -- [facility] Pending - Request Sent N/A [address] [facility] [address] [phone] -- [facility] Pending - Request Sent N/A [address] [facility] [phone] -- [facility] Pending - Request Sent N/A [address] [facility] [address] [phone] -- [facility] Pending - Request Sent N/A [facility] [address] [place] [phone] -- Current Capacity last updated by Myrna Pan on 11/09/2021 0923 Male and Female beds available. , Covid swab needed prior to discharge, Please provide Covid vaccine information, if available., Medicare - Medicaid & Medicaid pending accepted. Most Insurance accepted. [facility] Pending - Request Sent N/A [address] [facility] [phone] -- [facility] Pending - Request Sent N/A [address] [facility] [address] -- [facility] Pending - Request Sent N/A [address] [place] [address] [phone] -- [facility] Pending - Request Sent N/A [address] [facility] [address] [phone] -- [facility] Pending - Request Sent N/A [address] [place] [phone] -- [facility] Pending - Request Sent N/A [address] [facility] [address] [phone] -- [facility] Pending - Request Sent N/A [address] [facility] [id number] [phone] -- [facility] Pending - Request Sent N/A [address] [facility] [id number] [phone] -- Current Capacity last updated by Feliciano Zepeda on 10/22/2022 0728 We have 16 beds open, I will be networks computer consultant for the weekend, Feliciano [phone] [facility] Pending - Request Sent N/A [address] [address] [phone] -- [facility] Pending - Request Sent N/A [address] [facility] [phone] -- [facility] Pending - Request Sent N/A [address] [phone] -- [facility] Pending - Request Sent N/A [address] [facility] [phone] -- [facility] [place] Pending - Request Sent N/A [address] [facility] [phone] -- [facility] Pending - Request Sent N/A 1000 [facility] [address] [phone] -- [facility] Pending - Request Sent N/A [address] [place] [address] -- [facility] Pending - Request Sent N/A [address] [place] [address] [phone] -- [facility] Pending - Request Sent N/A [address] [facility] [address] -- [facility] Pending - Request Sent N/A [address] [place] [phone] -- [facility] [place] Pending - Request Sent N/A [address] [facility] [address] -- [facility] Pending - Request Sent N/A [address] [facility] [phone] -- [facility] Sw[facility] Unit Pending - Request Sent N/A [facility] [facility] [address] -- [facility] Pending - Request Sent N/A [address] [phone] -- [address] Pending - Request Sent N/A 2950 [facility] [phone] -- [facility] Pending - Request Sent N/A [address] [place] [phone] -- [facility] Pending - Request Sent N/A [address] [place] [address] -- [facility] Pending - Request Sent N/A 524 [facility] [address] -- [phone] -- [facility] Pending - Request Sent N/A 614 N [facility] [address] -- [facility] Pending - Request Sent N/A 3900 [facility] [address] [phone] -- [facility] Pending - Request Sent N/A 3500 [facility] [phone] -- [facility] Pending - Request Sent N/A [address] [facility] [facility] [place] [place] [phone] -- [facility] Pending - Request Sent N/A [address] [facility] [address] [phone] -- [facility] Pending - Request Sent N/A 400 E [facility] [address] [phone] -- [facility] Declined Facility cannot provide for patient's needs, Acuity too high N/A [address] [facility] [address] [phone] -- [facility] Declined Facility cannot provide for patient's needs N/A [address] [phone] -- [facility] Declined N/A [address], [facility] [address] [phone] -- [facility] [place] Declined N/A [address] [facility] [address] [phone] -- [facility] Declined N/A [address] [place] [address] [phone] -- [facility] [place] [facility]) Declined N/A [address] [facility] [address] -- [facility] Declined N/A [address] [facility] [address] -- [facility] Declined N/A [address] [facility] [address] [phone] -- [facility] Declined N/A [address] [address] [phone] -- [facility] Declined Facility cannot provide for patient's needs N/A 120 [facility] [address] -- [facility] Declined N/A [address] [facility] [phone] -- [facility] Declined N/A 1623 [facility] [address] -- [facility] Declined N/A 107 S [facility] [phone] -- [facility] Declined Facility cannot provide for patient's needs, Thank you for this referral. N/A ONE [facility] [address] [phone] -- Internal Comment last updated by Gaurav Juarez 10/05/2022 1055 SW called and left VM for Chanel in admissions [phone] [facility] Declined Facility cannot provide for patient's needs N/A [facility] [address] [phone] -- Internal Comment last updated by Yessica Hall MSW 10/13/2022 1346 They do not accept new TRACH. Trach has to be 6 months old- per Maryan admission [facility] Declined Facility cannot provide for patient's needs N/A [address] [facility] [address] [phone] -- [facility] Declined N/A 34[address] [facility] [phone] -- Current Capacity last updated by Yu Nguyễn on 04/21/2022 1237 176 Internal Comment last updated by Gaurav Juarez 10/20/2022 0936 SW left VM for admissions 10/20 [facility])Declined Facility cannot provide for patient's needs N/A 6277 [facility] [phone] -- Current Capacity last updated by Yu Nguyễn on 04/21/2022 1237 118 Internal Comment last updated by Gaurav Juarez 10/20/2022 0933 SW called and left VM for admissions 10/20 [facility] Declined Behavior issues or concerns N/A [address] [address] [phone] -- Internal Comment last updated by Gaurav Juarez 10/20/2022 0931 SW called and left message for admissions 10/20 SW called and no option for a voice mail 10/19 [facility] Declined Bed not available, Behavior issues or concerns N/A [address] [facility] [address] -- Internal Comment last updated by Gaurav Juarez 10/19/2022 0918 SW called and admissions is reviewing 10/19 [facility] Declined N/A 101 [facility] [phone] -- [facility] Declined N/A 1201 [facility] [address] -- [facility] Declined N/A 596 [facility] [phone] -- [facility] Declined History N/A 100 [facility] [place] [phone] -- [facility] Declined N/A 4930 [facility] [address] -- [facility] Declined Out of service area N/A [address] [facility] [address] -- Selected Continued Care - Prior Encounters Includes continued care and service providers with selected services from prior encounters from 05/30/2022 to 11/03/2022 Discharged on 06/03/2022 Admission date: 05/30/2022 - Discharge disposition: [facility] Facility Destination Service Provider Selected Services Address Phone Fax Patient Preferred [facility] [address] [facility] [phone] -- If Medicare-3 day qualifying stay verified: No monitoring facility responses Comments: Name: CLARITA Ram * Destiney Cruz, RN - 11/03/2022 1:11 AM CDT Problem: Impaired Gas Exchange Goal: Resp rate/effort will be within specified limits Outcome: Progressing Problem: Ineffective Airway Clearance Goal: Patent airway Outcome: Progressing Problem: Fall Risk Goal: Fall risk and fall related injury risk are minimized (interventions related to the fall risk can be found in the flowsheet documentation) Outcome: Progressing Problem: Nutrient: Inadequate protein-energy intake Goal: Total intake will meet estimated nutrient needs Outcome: Progressing Problem: Oxygenation/Respiratory Function Goal: Patent airway Outcome: Progressing Goal: Respiratory rate/effort will be within specified limits Outcome: Progressing Problem: Care of Tracheostomy Goal: Tracheostomy tube and site will be maintained Outcome: Progressing Problem: Potential for Infection Goal: Insertion site without signs/symptoms of infection Outcome: Progressing Problem: Knowledge Deficit Goal: Patient/Significant other demonstrates understanding of Tracheostomy Outcome: Progressing Problem: Communication/Dysarthria Goal: STG - Patient will tolerate PMV trials Outcome: Progressing Problem: Pain/Discomfort Goal: Patient exhibits reduced pain/discomfort as evidenced by pain scores Outcome: Progressing Goal: Patient uses pharmacological and non-pharmacological pain management strategies. Outcome: Progressing Goal: Patient verbalizes acceptable level of pain relief and ability to engage in desired activity. Outcome: Progressing Problem: Skin Integrity Goal: Skin integrity is maintained or improved Outcome: Progressing Problem: Daily Care Goal: Daily care needs are met Outcome: Progressing * Gaurav Juarez MSW - 11/02/2022 3:26 PM CDT ASHWIN has been in constant contact with Leonora (admissions @ [facility] in [place] [phone]) and wasinformed that they would be able to accommodate accepting this pt in to their facility. ASHWIN to continue to follow for SNF placement. CLARITA Fang 11/02/2022 * Suzy Farmer RN - 11/02/2022 3:23 PM CDT Care Coordination Progress Note Anticipated level of care at discharge: Custodial - Skilled Facility Family meeting with . Pt sister Josefa Forrest, ASHWIN assistant shift supervisor Byron Neri and CM assistant shift supervisor Maggy Hunt , charge nurse Eliane and LASHON Almonte to discuss discharge plan Additional referrals sent Continued Care and Services - Admitted Since 08/28/2022 Destination Service Provider Request Status Selected Services Address Phone Fax Patient Preferred Michelle Gibbons Pending - Request Sent N/A 2 [facility] [phone] -- [facility] Pending - Request Sent N/A [address] [facility] [address] -- [facility] Pending - Request Sent N/A [address] [facility] [address] -- [facility] Pending - Request Sent N/A [address] [facility] [phone] -- [facility] Declined Facility cannot provide for patient's needs, Acuity too high N/A [address] [facility] [address] [phone] -- [facility] Declined Facility cannot provide for patient's needs N/A [address] [phone] -- [facility] Declined N/A [address] [facility] [address] [phone] -- [facility] [place] Declined N/A [address] [facility] [address] [phone] -- [facility] Declined N/A [address] [place] [address] [phone] -- [facility] [place] [facility]) Declined N/A [address] [place] [phone] -- [facility] Declined N/A [address] [place] [address] -- [facility] Declined N/A [address] [facility] [address] [phone] -- [facility] Declined N/A [address] [address] [phone] -- [facility] Declined Facility cannot provide for patient's needs N/A 120 [facility] [address] -- [facility] Declined N/A [address] [facility] [phone] -- [facility] Declined N/A 1623 [facility] [phone] -- [facility] Declined N/A 107 [address] [facility] [address] [phone] -- [facility] Declined Facility cannot provide for patient's needs, Thank you for this referral. N/A ONE [facility] [address] [phone] -- Internal Comment last updated by Gaurav Juarez 10/05/2022 1055 SW called and left VM for Chanel in admissions [phone] [facility] Declined Facility cannot provide for patient's needs N/A 152 [facility] [address] [phone] -- Internal Comment last updated by Yessica Hall, WEB MARKETING SPECIALIST 10/13/2022 1346 They do not accept new TRACH. Trach has to be 6 months old- per Maryan admission [facility] Declined Facility cannot provide for patient's needs N/A [address] [facility] [address] -- [facility]) Declined N/A 34[address] [facility] [address] -- Current Capacity last updated by Yu Nguyễn on 04/21/2022 1237 176 Internal Comment last updated by Gaurav Juarez 10/20/2022 0936 SW left VM for admissions 10/20 [facility])Declined Facility cannot provide for patient's needs N/A 6[address] [facility] [facility] [phone] -- Current Capacity last updated by Yu Nguyễn on 04/21/2022 1237 118 Internal Comment last updated by Gaurav Juarez 10/20/2022 0933 SW called and left VM for admissions 10/20 [facility] Declined Behavior issues or concerns N/A [address] [place] [address] [phone] -- Internal Comment last updated by Gaurav Juarez 10/20/2022 0931 SW called and left message for admissions 10/20 SW called and no option for a voice mail 10/19 [facility] Declined Bed not available, Behavior issues or concerns N/A [address] [facility] [phone] -- Internal Comment last updated by Gaurav Juarez 10/19/2022 0918 SW called and admissions is reviewing 10/19 [facility] Declined N/A 101 [facility] [phone] -- [facility] Declined N/A 1201 [facility] [phone] -- [facility] Declined N/A 596 [facility] [address] [phone] -- [facility] Declined History N/A 100 [facility] [place] [phone] -- [facility] Declined N/A 4930 [facility] [phone] -- Selected Continued Care - Prior Encounters Includes continued care and service providers with selected services from prior encounters from 05/30/2022 to 11/02/2022 Discharged on 06/03/2022 Admission date: 05/30/2022 - Discharge disposition: [facility] Facility Destination Service Provider Selected Services Address Phone Fax Patient Preferred [facility] [address] [facility] [phone] -- READMISSION RISK SCORE is 27 at 3:23 PM 11/02/2022. Anticipated Discharge Date: 11/05/22 Patient/Family provided with list of resources? Yes Preferred Provider / High Quality Network List given?: Yes Reason for provider choice: Unknown Family Support (Name and Phone): Extended Emergency Contact Information Primary Emergency Contact: Adriane Pearson Mobile Relation: Sister Shop Mechanic needed? No Secondary Emergency Contact: Amarjit [facility] Relation: Brother Transportation at Discharge: Ambulance Equipment at Home: Equipment at Home: Facility Equipment List DME patient requires but does not have: DME Provider: Medication affordability concerns: No Follow Up Appointment: Transportation to MD: Auth Number (if required): [place]: DME: Medications: Transportation: Name: Suzy Farmer RN Phone: [phone] * Rosa Bell - 11/02/2022 2:39 PM CDT Nutrition Re-Assessment Brief Synopsis: Patient is diagnosed with severe malnutrition; Specific criteria can be found in assessment below Nutrition Plan: NPO + TF New TF Recommendations: Continuous: Continuous: TwoCal HN @ 55 ml/hr. Provides 2640 kcal, 110 g pro, 287 g CHO, and 924 ml free water. +300 ml q4 hrs free water flush or per MD if not on additional fluids Start TF at 45 ml/hr, advance 10 ml q 2 hrs If electrolytes or renal labs elevated: Continuous: Nepro at 60 ml/hr. Provides 2592 kcal, 117 g protein, 232 g carbohydrate, 1047 ml free water. +250 ml q4 hrs free water flush or per MD if not on additional fluids Recommendations to Physician: See above + Replace lytes before restarting TF Comments: Pt scheduled for reassessment. Per chart review, pt currently receiving TF of Nepro at goal of 60 ml/hr via PEG. See above for new TF recs. Per chart review, pt has trach. Per chart review, pt last BM 10/30, on bowel regimen. Per chart review, pt receiving statin. + 1.8 L net fluid balance. Per chart review, no recent weight hx since 10/12,new weights ordered on 10/20, 10/28, no new weights taken. New weight ordered today. RD to follow up per clinical nutrition protocol. 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 Height: 182.9 cm (6' 0.01 ) Weight: 54.9 kg (121 lb) BMI: Body mass index is 16.41 kg/m??. BMI Range: Underweight IBW/lb (Calculated) Male: 178.77527244070222 , Recent Weights/Methods 09/21/2022 0400 09/24/2022 0400 09/26/2022 2112 10/02/2022 0400 10/05/2022 0445 10/05/2022 0506 10/11/2022 0400 10/12/2022 0400 Weight: 63.1 kg (139 lb 3.2 oz) 61.5 kg (135 lb 8 oz) 61.5 kg (135 lb 9.6 oz) 60.8 kg (134 lb) -- 54 kg (119 lb) 54.4 kg (120 lb) 54.9 kg (121 lb) Weight Method (Utilize Scales): -- -- -- Bedscale -- Bedscale Bedscale Bedscale Wt Comments: Per chart review, no recent weight hx since 10/12, new weights ordered on 10/20, 10/28, nonew weights taken. New weight ordered today. Diet order accuracy Current diet order: NPO Current tube feeding order: Nepro at 60mL/hr Nutrition recommendation: alter/change nutrition order P.O.Intake for the past 48 hrs: No data recorded Supplement(s) Consumed- Last 48 hours None Food Allergies: No known food allergies Chewing/Swallowing: Dysphagia Pain affecting intake: No Estimated Needs: KCAL: 9089-0448 (35-45kcal/kg (ABW)) Protein (g): 95-125g (20% of estimated kcal needs) Fluid (ml): 1 ml/kcal Needs based on: Kcal/kg- (Comment) (ABW 54.9kg) Recommended Access Route: TF Malnutrition Etiology: Malnutrition in the context of: chronic disease, Malnutrition Severity: Severe BMI: Body mass index is 16.41 kg/m??. GI Concerns: None Nutrition Focused Physical Assessment: Loss of Subcutaneous Fat Orbital: Severe Buccal: Severe Tricep: Severe Muscle Loss Temples (Temporalis Muscle): Severe Clavicles (Pectoralis & Deltoids): Severe Shoulders (Deltoids): Severe Pertinent Nutrition Labs: Recent Labs Component Name 11/01/22 0644 10/30/22 0546 10/28/22 0621 10/12/22 0716 10/09/22 1204 08/30/22 0039 08/28/22 2224 08/28/22 1251 BUN 14 14 16 - 14 - 11 12 CREATININE 0.51* 0.41* 0.46* - 0.39* - 0.50* 0.51* NA 139 140 139 - 140 - 142 139 POTASSIUM 4.0 3.6 3.6 - 4.0 - 3.9 4.5 CL 106 107 104 - 108* - 111* 103 CO2 27 26 26 - 24 - 24 27 GLUCOSE 90 108 92 - 115 - 86 100 CALCIUM 9.6 9.9 9.7 - 9.8 - 8.8 9.8 PROT - - - - 6.9 - 6.0 7.5 ALB - - - - 3.0* - 2.0* 2.5* TBILI - - - - 0.1* - 0.6 0.5 ALKPHOS - - - - 83 - 67 88 ALT - - - - 10 - 5 6 AST - - - - 15 - 13 14 ANIONGAP 10 11 13 - 12 - 11 14 BCR 27* 34* 35* - 36* - 22 24* OSMOLALITY 288 291 289 - 291 - 293 288 AGRATIO - - - - 0.8* - 0.5* 0.5* EGFR >90 >90 >90 - >90 - >90 >90 - = values in this interval not displayed. Pertinent Nutrition Medications: Current Facility-Administered Medications Medication ??? acetaminophen (Tylenol) tablet 650 mg ??? artificial tears ophthalmic ointment ??? atorvastatin (Lipitor) tablet 40 mg ??? chlorhexidine (Peridex) 0.12 % oral solution 15 mL ??? cloBAZam (Onfi) tablet 20 mg ??? dextrose 10 % IV bolus Or ??? dextrose 10 % IV bolus ??? divalproex sprinkle (Depakote Sprinkle) capsule 500 mg ??? enoxaparin (Lovenox) injection 40 mg ??? glucagon (Glucagen) injection 1 mg ??? glucose (Diabetic Use) (Dex4 Glucose) oral liquid ??? glucose (Diabetic Use) oral gel ??? glucose chew tablet 4 tablet ??? guaiFENesin (Robitussin) solution 10 mL ??? lacosamide (Vimpat) tablet 200 mg ??? levalbuterol (Xopenex) nebulizer solution 1.25 mg ??? levETIRAcetam (Keppra) tablet 2,000 mg ??? scopolamine (Transderm-Scop) 1 patch And ??? scopolamine patch placement confirmation ??? senna-docusate (Senokot-S) tablet 1 tablet Skin/Wound: WDL Nutrition Care Process (1) Nutrition Diagnostic Statement: Inadequate protein-energy intake related to:: decreased ability to consume or tolerate adequate food and/or fluids due to illness;swallowing difficulty as evidenced by:: estimated intake insufficient to meet requirements;BMI less than 19;unintentionalweight loss Nutrition Diagnostic Statement Progress: Nutrition problem continues Nutrition Intervention: Enteral nutrition: Monitoring: GI, TF tolerance, I&O's, weight, labs, medications. Evaluation: Nutrition Goal: Total intake will meet estimated nutrient needs Nutrition Goal Timeframe: Throughout stay Nutrition Goal Progress: Continue with current goal Rosa Bell, Clinical Psychology Professor * Vicky Silva MD - 11/02/2022 10:03 AM CDT Family Notification Documentation Contact made: 11/02/2022 3:03 PM Person(s) contacted: Adriane Pearson (Sister) Method of communication: In-person Duration of discussion: 60 minutes Summary of discussion Please refer to LASHON Almonte's note. Provided support and presence due to complex disposition * Vicky Silva MD - 11/02/2022 9:23 AM CDT INTERNAL MEDICINE PROGRESS NOTE Admit Date: 08/28/2022 Progress Note Length of Stay 66 Day(s) Subjective: Seen in the morning. Mouthing words, very soft spoken, unable to Make out speech. Nods yes/no questions. No pain or acute distress currently. Objective: Temp: [97.2 ??F (36.2 ??C)-97.3 ??F (36.3 ??C)] 97.2 ??F (36.2 ??C) Pulse: [89-95] 89 Resp: [16] 16 BP: (137-138)/(86-92) 137/92 O2 %: [21 %] 21 % Weight change: Intake/Output Summary (Last 24 hours) at 11/02/2022 0923 Last data filed at 11/01/2022 2330 Gross per 24 hour Intake 1826 ml Output -- Net 1826 ml GEN No acute distress, lying in bed comfortably HEENT NC, neck supple, sclera anicteric, moist mucosa CARDIO Regular rate rhythm, no murmurs appreciated RESP Normal work of breathing, on room air, trach ABD Soft, non distended, non tender, positive BS, +PEG EXT No edema. BKA of LLE SKIN Warm, no obvious new rashes NEURO Awake. Responds to verbal stimuli. Interactive PSYCH Appropriate mood and affect Data Review: data personally reviewed as below Recent Labs Component Name 11/01/2244 10/30/22 0546 10/28/22620 WBC 6.8 7.9 7.6 HGB 13.5 13.5 13.4 HCT 42.3 41.0 40.9 MCV 95.7 92.1 94.0 Recent Labs Component Name 11/01/2244 10/30/2246 10/28/22620 CALCIUM 9.6 9.9 9.7 PHOS 3.2 2.7* 2.8 Recent Labs Component Name 11/01/2244 10/30/22 0546 10/28/22 0621 NA 139 140 139 CL 106 107 104 CO2 27 26 26 BUN 14 14 16 CREATININE 0.51* 0.41* 0.46* IMAGING/PROCEDURES: no new imaging last 24 hours Medications: ??? artificial tears Each Eye q8h ??? atorvastatin 40 mg Enteral Tube QDAY ??? chlorhexidine 15 mL Mouth/Throat BID ??? cloBAZam 20 mg Enteral Tube BID ??? divalproex sprinkle 500 mg Enteral Tube q6h ??? enoxaparin 40 mg Subcutaneous QDAY ??? guaiFENesin 10 mL Enteral Tube q6h ??? lacosamide 200 mg Enteral Tube BID ??? levalbuterol 1.25 mg Inhalation q6h ??? levETIRAcetam 2,000 mg Enteral Tube BID ??? scopolamine 1 patch Transdermal q72h And ??? scopolamine patch placement confirmation Transdermal BID ??? senna-docusate 1 tablet Enteral Tube BID PRN Meds: ??? acetaminophen ??? dextrose IV for hypoglycemia OR dextrose IV for hypoglycemia ??? glucagon ??? glucose (Diabetic Use) ??? glucose (Diabetic Use) gel ??? glucose chew tab Bacterial pneumonia (POA: Yes) History of CVA (cerebrovascular accident) (POA: Yes) Paroxysmal tachycardia, unspecified (CMS/HCC) (POA: Yes) Essential (primary) hypertension (POA: Yes) Seizure disorder (CMS/HCC) (POA: Yes) Sepsis without acute organ dysfunction (CMS/HCC) (POA: Yes) Severe protein-calorie malnutrition (CMS/HCC) (POA: Yes) Tachypnea (POA: Yes) Chronic respiratory failure with hypoxia (CMS/HCC) (POA: Yes) Pressure ulcer of right heel, stage 3 (CMS/HCC) (POA: Yes) Dementia, vascular (CMS/HCC) (POA: Yes) Assessment/Plan: Bi Tabor is a 62 year old male Hx CVA w/ L sided residual deficits, seizure disorder, dementia,dysphagia w/ recurrent aspiration s/p PEG, zenker divertiuculum s/p diverticulectomy 2022, chronic hypoxic respiratory faiure s/p trach 06/2022, PVD s/p L AKA c/b nonhealing foot wound, HTN who presented to [facility] 08/28 with shortness of breath, tachypnea, and increased WOB d/t lack of suction instruments at SNF. Hospitalized with presumed bacteremia (due to Staphylococcus capitis) and hdzin-uf-mdhvplgubyrswdvbco failure with hypoxia. Hospital course complicated by hospital-acquired bacterial pneumonia/tracheitis due to Pseudomonas aeruginosa and Acinetobacter baummannii. On admission, no elevated WBC, afebrile but??CXR w/ large R pleural effusion, R lung atelectasis, RUL GGO. Patient was started on broad spectrum abx (vanc, cefe). BCX + staph capitis, SpCx + MRSA andpseudomonas. UCx + pseudomonas. TTE negative for vegetations. Hospital course c/b mucus plugging requiring bronch 09/08, recurrent pseudomonas PNA (repeat SpCx 09/09 + pseudomonas resistant to cefepime).??Antibiotics switched to??meropenem??(09/10-09/17).??Weaned off ventilation in ICU. Tolerated trachcollar and transferred to the floor. Pt is stable and waiting for placement. Sfrvg-dm-lhdizff respiratory failure with hypoxia - Resolved Chronic respiratory failure (CRF) with hypoxia Bacterial PNA due to S. capitis- resolved HCAP- resolved -on Trach collar, supplemental O2 to maintain Sats >92% -bronchial hygiene -on levalbuterol nebulizer 1.25 mg Qd -s/p 10 days of meropenem on 09/19 Hx Cerebrovascular accident (CVA): Atorvastatin 40 mg ?? Seizure disorder: on levetiracetam 200 mg BID, divalproex 500 mg Q6, lacosamide 200 mg BID, clobazam 20 mg BID Essential (primary) hypertension (HTN) hold, as normotensive ?? Severe Protein-calorie malnutrition Dysphagia Enteral feedings via PEG tube -needs cuff deflation (can't due to copious amount of secretion, to call speech back for PMV) Pressure ulcer of right (R) heel, stage 3- POA: follow rn document improvement specialist instructions Access: Peripheral IVs Diet: NPO no exception. TF F/E/N: keep K 3.5-4.0 meq, Mg~2.0 mg/dl, Phosphorous 3.0-4.0 mmol/l Ppx: lovenox CODE STATUS: FULL CODE Disposition: PT/OT, speech and nutrition notes reviewed and care discussed. Plan for rehab Vicky Silva MD General Internal Medicine 11/02/2022 9:23 AM >60 minutes spent on the care of this patient and/or guardian. > 50% was spent in counseling and/or coordination of care that included the patient, family and consults. * Riky Lara RN - 11/02/2022 9:20 AM CDT Problem: Impaired Gas Exchange Goal: Resp rate/effort will be within specified limits Outcome: Progressing Problem: Ineffective Airway Clearance Goal: Patent airway Outcome: Progressing Problem: Fall Risk Goal: Fall risk and fall related injury risk are minimized (interventions related to the fall risk can be found in the flowsheet documentation) Outcome: Progressing Problem: Nutrient: Inadequate protein-energy intake Goal: Total intake will meet estimated nutrient needs Outcome: Progressing Problem: Oxygenation/Respiratory Function Goal: Patent airway Outcome: Progressing Goal: Respiratory rate/effort will be within specified limits Outcome: Progressing Problem: Care of Tracheostomy Goal: Tracheostomy tube and site will be maintained Outcome: Progressing Problem: Potential for Infection Goal: Insertion site without signs/symptoms of infection Outcome: Progressing Problem: Knowledge Deficit Goal: Patient/Significant other demonstrates understanding of Tracheostomy Outcome: Progressing Problem: Communication/Dysarthria Goal: STG - Patient will tolerate PMV trials Outcome: Progressing Problem: Pain/Discomfort Goal: Patient exhibits reduced pain/discomfort as evidenced by pain scores Outcome: Progressing Goal: Patient uses pharmacological and non-pharmacological pain management strategies. Outcome: Progressing Goal: Patient verbalizes acceptable level of pain relief and ability to engage in desired activity. Outcome: Progressing Problem: Skin Integrity Goal: Skin integrity is maintained or improved Outcome: Progressing Problem: Daily Care Goal: Daily care needs are met Outcome: Progressing * Destiney Cruz RN - 11/01/2022 11:25 PM CDT Problem: Impaired Gas Exchange Goal: Resp rate/effort will be within specified limits Outcome: Progressing Problem: Ineffective Airway Clearance Goal: Patent airway Outcome: Progressing Problem: Fall Risk Goal: Fall risk and fall related injury risk are minimized (interventions related to the fall risk can be found in the flowsheet documentation) Outcome: Progressing Problem: Nutrient: Inadequate protein-energy intake Goal: Total intake will meet estimated nutrient needs Outcome: Progressing Problem: Oxygenation/Respiratory Function Goal: Patent [...] is maintained or improved Outcome: Progressing Problem: Daily Care Goal: Daily care needs are met Outcome: Progressing * Suzy Farmer RN - 11/01/2022 2:52 PM CDT Care Coordination Progress Note Anticipated level of care at discharge: Custodial - Skilled Facility CM reached out to pt sister Adriane [phone] to discuss DC plan. [facility] has accepted this pt. Pt sister is refusing placement there. CM will reach out to my assistant shift supervisor to discuss Discharge Plan: READMISSION RISK SCORE is 27 at 2:53 PM 11/01/2022. Anticipated Discharge Date: 11/05/22 Patient/Family provided with list of resources? Yes Preferred Provider / High Quality Network List given?: Yes Reason for provider choice: Unknown Family Support (Name and Phone): Extended Emergency Contact Information Primary Emergency Contact: Adriane Pearson Mobile Relation: Sister Shop Mechanic needed? No Secondary Emergency Contact: Amarjit Tabor [facility] Relation: Brother Transportation at Discharge: Ambulance Equipment at Home: Equipment at Home: Facility Equipment List DME patient requires but does not have: DME Provider: Medication affordability concerns: No Follow Up Appointment: Transportation to MD: Auth Number (if required): [place]: DME: Medications: Transportation: Name: Suzy Farmer RN Phone: [phone] * Jayy Christiansen RN - 11/01/2022 12:58 PM CDT Problem: Impaired Gas Exchange Goal: Resp rate/effort will be within specified limits Outcome: Progressing Problem: Ineffective Airway Clearance Goal: Patent airway Outcome: Progressing Problem: Fall Risk Goal: Fall risk and fall related injury risk are minimized (interventions related to the fall risk can be found in the flowsheet documentation) Outcome: Progressing Problem: Nutrient: Inadequate protein-energy intake Goal: Total intake will meet estimated nutrient needs Outcome: Progressing Problem: Oxygenation/Respiratory Function Goal: Patent airway Outcome: Progressing Goal: Respiratory rate/effort will be within specified limits Outcome: Progressing Problem: Care of Tracheostomy Goal: Tracheostomy tube and site will be maintained Outcome: Progressing Problem: Potential for Infection Goal: Insertion site without signs/symptoms of infection Outcome: Progressing Problem: Knowledge Deficit Goal: Patient/Significant other demonstrates understanding of Tracheostomy Outcome: Progressing Problem: Communication/Dysarthria Goal: STG - Patient will tolerate PMV trials Outcome: Progressing Problem: Pain/Discomfort Goal: Patient exhibits reduced pain/discomfort as evidenced by pain scores Outcome: Progressing Goal: Patient uses pharmacological and non-pharmacological pain management strategies. Outcome: Progressing Goal: Patient verbalizes acceptable level of pain relief and ability to engage in desired activity. Outcome: Progressing Problem: Skin Integrity Goal: Skin integrity is maintained or improved Outcome: Progressing Problem: Daily Care Goal: Daily care needs are met Outcome: Progressing * Venessa Rosado DO - 11/01/2022 9:50 AM CDT Internal Medicine Progress Note Admission Date: 08/28/2022 Length of Stay: 65 Subjective 24h- Pt denies any pain or respiratory issues. Pt is slow to respond but does indicate answers to interview questions. No acute events overnight. Trach secretions have improved. Resting comfortably. Objective Temp: [97.3 ??F (36.3 ??C)-98.6 ??F (37 ??C)] 97.3 ??F (36.3 ??C) Pulse: [94-116] 99 Resp: [16-18] 16 BP: (127-136)/(77-88) 131/88 O2 %: [21 %] 21 % Weight change: Intake/Output Summary (Last 24 hours) at 11/01/2022 0950 Last data filed at 11/01/2022 0031 Gross per 24 hour Intake 1305 ml Output 1100 ml Net 205 ml Physical Exam Constitutional: General: He is not in acute distress. Comments: Awake. Interactive. Responds to verbal stimuli. Neck: Trachea: Tracheostomy present. Cardiovascular: Rate and Rhythm: Normal rate and regular rhythm. Heart sounds: Normal heart sounds. No murmur heard. Pulmonary: Effort: Pulmonary effort is normal. Breath sounds: Normal breath sounds. Comments: Humidified air via trach collar. Abdominal: General: Bowel sounds are normal. Palpations: Abdomen is soft. Tenderness: There is no abdominal tenderness. Skin: General: Skin is warm. Neurological: Mental Status: He is alert. Laboratory Data Recent Labs Component Name 11/01/22 0644 10/30/22 0546 10/28/22 0621 WBC 6.8 7.9 7.6 HGB 13.5 13.5 13.4 HCT 42.3 41.0 40.9 PLTCOUNT 185 178 182 MCV 95.7 92.1 94.0 Recent Labs Component Name 11/01/22 0644 10/30/22 0546 10/28/22 0621 NA 139 140 139 POTASSIUM 4.0 3.6 3.6 CL 106 107 104 CO2 27 26 26 BUN 14 14 16 CREATININE 0.51* 0.41* 0.46* Recent Labs Component Name 11/01/22 0644 10/30/22 0546 10/28/22620 CALCIUM 9.6 9.9 9.7 PHOS 3.2 2.7* 2.8 Assessment and Plan Bi Tabor is a 62 year old male hospitalized with presumed bacteremia (due to Staphylococcus capitis) and blwqg-gs-mdcjiyk respiratory failure with hypoxia. Hospital course complicated by hospital-acquired bacterial pneumonia/tracheitis due to Pseudomonas aeruginosa and Acinetobacter baummannii.His active/chronic diseases include cerebrovascular dementia, seizure disorder, dysphagia (post-PEG tube placement), CRF with hypoxia (post-tracheostomy tube placement in Jun, 2022), PAD (post-L AKA), and HTN. Pt is stable and waiting for placement. Veywp-zw-qadrmik respiratory failure with hypoxia - Resolved Chronic respiratory failure (CRF) with hypoxia Bacterial PNA due to S. capitis- resolved HCAP- resolved Plan: Supplemental O2 via trach collar to maintain SpO2 >= 92%- not currently utilizing is on humidified air - Bronchial hygiene. - Continue levalbuterol nebulizer solution 1.25 mg Q 6 hrs INH. - completed a 10-day course of meropenem on 09/19. Hx Cerebrovascular accident (CVA) Plan: Secondary stroke prevention. - Continue atorvastatin 40 mg QDAY ET. Seizure disorder Plan: AED regimen. Continue levetiracetam 2000 mg BID ET. Continue divalproex 500 mg Q 6 hrs ET. Continue lacosamide 200 mg BID ET. Continue clobazam 20 mg BID ET. Essential (primary) hypertension (HTN) - Monitor to restart as indicated Protein-calorie malnutrition Dysphagia Clinical findings consistent with severe protein-calorie malnutrition. Plan: Follow up on nutrition/dietetics recommendations regarding further management of protein-calorie malnutrition. Enteral feedings via PEG tube. Pressure ulcer of right (R) heel, stage 3- POA Plan: Wound care per wound care consultants. ??? artificial tears Each Eye q8h ??? atorvastatin 40 mg Enteral Tube QDAY ??? chlorhexidine 15 mL Mouth/Throat BID ??? cloBAZam 20 mg Enteral Tube BID ??? divalproex sprinkle 500 mg Enteral Tube q6h ??? enoxaparin 40 mg Subcutaneous QDAY ??? guaiFENesin 10 mL Enteral Tube q6h ??? lacosamide 200 mg Enteral Tube BID ??? levalbuterol 1.25 mg Inhalation q6h ??? levETIRAcetam 2,000 mg Enteral Tube BID ??? scopolamine 1 patch Transdermal q72h And ??? scopolamine patch placement confirmation Transdermal BID ??? senna-docusate 1 tablet Enteral Tube BID ??? acetaminophen ??? dextrose IV for hypoglycemia OR dextrose IV for hypoglycemia ??? glucagon ??? glucose (Diabetic Use) ??? glucose (Diabetic Use) gel ??? glucose chew tab Prophylaxis VTE risk: high. Pharmacologic thromboprophylaxis is indicated. - Continue enoxaparin 40 mg QDAY SubQ. Diet DIET NPO Except: NO EXCEPTIONS DIET TUBE FEEDING CONTINUOUS Activity Level: Activity as tolerated Weight bearing: No restrictions (WBAT) Consults IP CONSULT TO NUTRITIONAL SERV IP CONSULT TO RESPIRATORY IP CONSULT TO NUTRITIONAL SERV IP CONSULT TO INFECTIOUS DISEASES IP CONSULT TO TRACK SERVICE PERSON IP CONSULT TO SKIN CARE NURSE IP CONSULT TO TRACK SERVICE PERSON Disposition Medical Floor (Inpatient) Pending SNF placement wont take because of trach being new Care Coordination Nursing staff updated with changes to care plan. Code Status Full Code Summary Problem List Bacterial pneumonia (POA: Yes) History of CVA (cerebrovascular accident) (POA: Yes) Paroxysmal tachycardia, unspecified (CMS/HCC) (POA: Yes) Essential (primary) hypertension (POA: Yes) Seizure disorder (CMS/HCC) (POA: Yes) Sepsis without acute organ dysfunction (CMS/HCC) (POA: Yes) Severe protein-calorie malnutrition (CMS/HCC) (POA: Yes) Tachypnea (POA: Yes) Chronic respiratory failure with hypoxia (CMS/HCC) (POA: Yes) Pressure ulcer of right heel, stage 3 (CMS/HCC) (POA: Yes) Dementia, vascular (CMS/HCC) (POA: Yes) Venessa Rosado DO Signed: 11/01/2022 9:50 AM * Berny Pichardo RN - 10/31/2022 9:45 PM CDT Problem: Impaired Gas Exchange Goal: Resp rate/effort will be within specified limits Outcome: Progressing Problem: Ineffective Airway Clearance Goal: Patent airway Outcome: Progressing Problem: Fall Risk Goal: Fall risk and fall related injury risk are minimized (interventions related to the fall risk can be found in the flowsheet documentation) Outcome: Progressing Problem: Nutrient: Inadequate protein-energy intake Goal: Total intake will meet estimated nutrient needs Outcome: Progressing Problem: Oxygenation/Respiratory Function Goal: Patent airway Outcome: Progressing Goal: Respiratory rate/effort will be within specified limits Outcome: Progressing Problem: Care of Tracheostomy Goal: Tracheostomy tube and site will be maintained Outcome: Progressing Problem: Potential for Infection Goal: Insertion site without signs/symptoms of infection Outcome: Progressing Problem: Knowledge Deficit Goal: Patient/Significant other demonstrates understanding of Tracheostomy Outcome: Progressing Problem: Communication/Dysarthria Goal: STG - Patient will tolerate PMV trials Outcome: Progressing Problem: Pain/Discomfort Goal: Patient exhibits reduced pain/discomfort as evidenced by pain scores Outcome: Progressing Goal: Patient uses pharmacological and non-pharmacological pain management strategies. Outcome: Progressing Goal: Patient verbalizes acceptable level of pain relief and ability to engage in desired activity. Outcome: Progressing Problem: Skin Integrity Goal: Skin integrity is maintained or improved Outcome: Progressing Problem: Daily Care Goal: Daily care needs are met Outcome: Progressing * Venessa Rosado DO - 10/31/2022 10:25 AM CDT Internal Medicine Progress Note Admission Date: 08/28/2022 Length of Stay: 64 Subjective 24h- Pt denies any pain or respiratory issues. Pt is slow to respond but does indicate answers to interview questions. No acute events overnight. Trach secretions have improved. Objective Temp: [97.3 ??F (36.3 ??C)-98.4 ??F (36.9 ??C)] 98.2 ??F (36.8 ??C) Pulse: [100-106] 102 Resp: [21-25] 21 BP: (119-141)/(80-93) 119/83 O2 %: [21 %] 21 % Weight change: Intake/Output Summary (Last 24 hours) at 10/31/2022 1025 Last data filed at 10/31/2022 0800 Gross per 24 hour Intake 60 ml Output 3300 ml Net -3240 ml Physical Exam Constitutional: General: He is not in acute distress. Comments: Awake. Interactive. Responds to verbal stimuli. Neck: Trachea: Tracheostomy present. Cardiovascular: Rate and Rhythm: Normal rate and regular rhythm. Heart sounds: Normal heart sounds. No murmur heard. Pulmonary: Effort: Pulmonary effort is normal. Breath sounds: Normal breath sounds. Comments: Humidified air via trach collar. Abdominal: General: Bowel sounds are normal. Palpations: Abdomen is soft. Tenderness: There is no abdominal tenderness. Skin: General: Skin is warm. Neurological: Mental Status: He is alert. Laboratory Data Recent Labs Component Name 10/30/22 0546 10/28/22 0621 10/26/22 0830 WBC 7.9 7.6 8.1 HGB 13.5 13.4 12.9 HCT 41.0 40.9 39.0 PLTCOUNT 178 182 225 MCV 92.1 94.0 92.6 Recent Labs Component Name 10/30/22 0546 10/28/22 0621 10/26/22 0830 NA 140 139 141 POTASSIUM 3.6 3.6 3.5 CL 107 104 102 CO2 26 26 26 BUN 14 16 15 CREATININE 0.41* 0.46* 0.43* Recent Labs Component Name 10/30/22 0546 10/28/22 0621 10/26/22 0830 CALCIUM 9.9 9.7 9.9 PHOS 2.7* 2.8 2.8 Assessment and Plan Bi Tabor is a 62 year old male hospitalized with presumed bacteremia (due to Staphylococcus capitis) and htbta-pq-jjjxzmv respiratory failure with hypoxia. Hospital course complicated by hospital-acquired bacterial pneumonia/tracheitis due to Pseudomonas aeruginosa and Acinetobacter baummannii.His active/chronic diseases include cerebrovascular dementia, seizure disorder, dysphagia (post-PEG tube placement), CRF with hypoxia (post-tracheostomy tube placement in Jun, 2022), PAD (post-L AKA), and HTN. Pt is stable and waiting for placement. Fjiqh-hj-woyyyhd respiratory failure with hypoxia - Resolved Chronic respiratory failure (CRF) with hypoxia Bacterial PNA due to S. capitis- resolved HCAP- resolved Plan: Supplemental O2 via trach collar to maintain SpO2 >= 92%- not currently utilizing is on humidified air - Bronchial hygiene. - Continue levalbuterol nebulizer solution 1.25 mg Q 6 hrs INH. - completed a 10-day course of meropenem on 09/19. Hx Cerebrovascular accident (CVA) Plan: Secondary stroke prevention. - Continue atorvastatin 40 mg QDAY ET. Seizure disorder Plan: AED regimen. Continue levetiracetam 2000 mg BID ET. Continue divalproex 500 mg Q 6 hrs ET. Continue lacosamide 200 mg BID ET. Continue clobazam 20 mg BID ET. Essential (primary) hypertension (HTN) - Monitor to restart as indicated Protein-calorie malnutrition Dysphagia Clinical findings consistent with severe protein-calorie malnutrition. Plan: Follow up on nutrition/dietetics recommendations regarding further management of protein-calorie malnutrition. Enteral feedings via PEG tube. Pressure ulcer of right (R) heel, stage 3- POA Plan: Wound care per wound care consultants. ??? artificial tears Each Eye q8h ??? atorvastatin 40 mg Enteral Tube QDAY ??? chlorhexidine 15 mL Mouth/Throat BID ??? cloBAZam 20 mg Enteral Tube BID ??? divalproex sprinkle 500 mg Enteral Tube q6h ??? enoxaparin 40 mg Subcutaneous QDAY ??? guaiFENesin 10 mL Enteral Tube q6h ??? lacosamide 200 mg Enteral Tube BID ??? levalbuterol 1.25 mg Inhalation q6h ??? levETIRAcetam 2,000 mg Enteral Tube BID ??? scopolamine 1 patch Transdermal q72h And ??? scopolamine patch placement confirmation Transdermal BID ??? senna-docusate 1 tablet Enteral Tube BID ??? acetaminophen ??? dextrose IV for hypoglycemia OR dextrose IV for hypoglycemia ??? glucagon ??? glucose (Diabetic Use) ??? glucose (Diabetic Use) gel ??? glucose chew tab Prophylaxis VTE risk: high. Pharmacologic thromboprophylaxis is indicated. - Continue enoxaparin 40 mg QDAY SubQ. Diet DIET NPO Except: NO EXCEPTIONS DIET TUBE FEEDING CONTINUOUS Activity Level: Activity as tolerated Weight bearing: No restrictions (WBAT) Consults IP CONSULT TO NUTRITIONAL SERV IP CONSULT TO RESPIRATORY IP CONSULT TO NUTRITIONAL SERV IP CONSULT TO INFECTIOUS DISEASES IP CONSULT TO TRACK SERVICE PERSON IP CONSULT TO SKIN CARE NURSE IP CONSULT TO TRACK SERVICE PERSON Disposition Medical Floor (Inpatient) Pending SNF placement Care Coordination Nursing staff updated with changes to care plan. Code Status Full Code Summary Problem List Bacterial pneumonia (POA: Yes) History of CVA (cerebrovascular accident) (POA: Yes) Paroxysmal tachycardia, unspecified (CMS/HCC) (POA: Yes) Essential (primary) hypertension (POA: Yes) Seizure disorder (CMS/HCC) (POA: Yes) Sepsis without acute organ dysfunction (CMS/HCC) (POA: Yes) Severe protein-calorie malnutrition (CMS/HCC) (POA: Yes) Tachypnea (POA: Yes) Chronic respiratory failure with hypoxia (CMS/HCC) (POA: Yes) Pressure ulcer of right heel, stage 3 (CMS/HCC) (POA: Yes) Dementia, vascular (CMS/HCC) (POA: Yes) Venessa Rosado DO Signed: 10/31/2022 10:25 AM * Ankur Shen, RN - 10/30/2022 10:57 PM CDT Problem: Fall Risk Goal: Fall risk and fall related injury risk are minimized (interventions related to the fall risk can be found in the flowsheet documentation) Outcome: Progressing * Carole Shea RN - 10/30/2022 3:49 PM CDT Problem: Impaired Gas Exchange Goal: Resp rate/effort will be within specified limits Outcome: Progressing Problem: Ineffective Airway Clearance Goal: Patent airway Outcome: Progressing Problem: Fall Risk Goal: Fall risk and fall related injury risk are minimized (interventions related to the fall risk can be found in the flowsheet documentation) Outcome: Progressing Problem: Nutrient: Inadequate protein-energy intake Goal: Total intake will meet estimated nutrient needs Outcome: Progressing Problem: Oxygenation/Respiratory Function Goal: Patent airway Outcome: Progressing Problem: Oxygenation/Respiratory Function Goal: Respiratory rate/effort will be within specified limits Outcome: Progressing Problem: Care of Tracheostomy Goal: Tracheostomy tube and site will be maintained Outcome: Progressing * Venessa Rosado DO - 10/30/2022 10:28 AM CDT Internal Medicine Progress Note Admission Date: 08/28/2022 Length of Stay: 63 Subjective 24h- Pt denies any pain or respiratory issues. Pt is slow to respond but does indicate answers to interview questions. No acute events overnight. Objective Temp: [97.3 ??F (36.3 ??C)-98.1 ??F (36.7 ??C)] 97.3 ??F (36.3 ??C) Pulse: [85-106] 103 Resp: [16-21] 16 BP: (106-124)/(84-94) 124/84 O2 %: [21 %] 21 % Weight change: Intake/Output Summary (Last 24 hours) at 10/30/2022 1028 Last data filed at 10/30/2022 0602 Gross per 24 hour Intake 1410 ml Output 400 ml Net 1010 ml Physical Exam Constitutional: General: He is not in acute distress. Appearance: He is diaphoretic. Comments: Awake. Interactive. Responds to verbal stimuli. Neck: Trachea: Tracheostomy present. Cardiovascular: Rate and Rhythm: Normal rate and regular rhythm. Heart sounds: Normal heart sounds. No murmur heard. Pulmonary: Effort: Pulmonary effort is normal. Breath sounds: Normal breath sounds. Comments: Supplemental oxygen being administered via trach collar at 10 L/min. Abdominal: General: Bowel sounds are normal. Palpations: Abdomen is soft. Tenderness: There is no abdominal tenderness. Skin: General: Skin is warm. Neurological: Mental Status: He is alert. Laboratory Data Recent Labs Component Name 10/30/22 0546 10/28/2221 10/26/22 0830 WBC 7.9 7.6 8.1 HGB 13.5 13.4 12.9 HCT 41.0 40.9 39.0 PLTCOUNT 178 182 225 MCV 92.1 94.0 92.6 Recent Labs Component Name 10/30/22 0546 10/28/2221 10/26/22 0830 NA 140 139 141 POTASSIUM 3.6 3.6 3.5 CL 107 104 102 CO2 26 26 26 BUN 14 16 15 CREATININE 0.41* 0.46* 0.43* Recent Labs Component Name 10/30/22 0546 10/28/2262010/26/22 0830 CALCIUM 9.9 9.7 9.9 PHOS 2.7* 2.8 2.8 Assessment and Plan Bi Tabor is a 62 year old male hospitalized with presumed bacteremia (due to Staphylococcus capitis) and eyrbw-ek-mbcssdx respiratory failure with hypoxia. Hospital course complicated by hospital-acquired bacterial pneumonia/tracheitis due to Pseudomonas aeruginosa and Acinetobacter baummannii.His active/chronic diseases include cerebrovascular dementia, seizure disorder, dysphagia (post-PEG tube placement), CRF with hypoxia (post-tracheostomy tube placement in Jun, 2022), PAD (post-L AKA), and HTN. Pt is stable and waiting for placement. Sgzhm-sz-ilgvwso respiratory failure with hypoxia - Resolved Chronic respiratory failure (CRF) with hypoxia Bacterial PNA due to S. capitis- resolved HCAP- resolved Plan: Supplemental O2 via trach collar to maintain SpO2 >= 92%- not currently utilizing is on humidified air - Bronchial hygiene. - Continue levalbuterol nebulizer solution 1.25 mg Q 6 hrs INH. - completed a 10-day course of meropenem on 09/19. Hx Cerebrovascular accident (CVA) Plan: Secondary stroke prevention. - Continue atorvastatin 40 mg QDAY ET. Seizure disorder Plan: AED regimen. Continue levetiracetam 2000 mg BID ET. Continue divalproex 500 mg Q 6 hrs ET. Continue lacosamide 200 mg BID ET. Continue clobazam 20 mg BID ET. Essential (primary) hypertension (HTN) - Monitor to restart as indicated Protein-calorie malnutrition Dysphagia Clinical findings consistent with severe protein-calorie malnutrition. Plan: Follow up on nutrition/dietetics recommendations regarding further management of protein-calorie malnutrition. Enteral feedings via PEG tube. Pressure ulcer of right (R) heel, stage 3 Present on admission. Plan: Wound care per wound care consultants. ??? artificial tears Each Eye q8h ??? atorvastatin 40 mg Enteral Tube QDAY ??? chlorhexidine 15 mL Mouth/Throat BID ??? cloBAZam 20 mg Enteral Tube BID ??? divalproex sprinkle 500 mg Enteral Tube q6h ??? enoxaparin 40 mg Subcutaneous QDAY ??? guaiFENesin 10 mL Enteral Tube q6h ??? lacosamide 200 mg Enteral Tube BID ??? levalbuterol 1.25 mg Inhalation q6h ??? levETIRAcetam 2,000 mg Enteral Tube BID ??? scopolamine 1 patch Transdermal q72h And ??? scopolamine patch placement confirmation Transdermal BID ??? senna-docusate 1 tablet Enteral Tube BID ??? acetaminophen ??? dextrose IV for hypoglycemia OR dextrose IV for hypoglycemia ??? glucagon ??? glucose (Diabetic Use) ??? glucose (Diabetic Use) gel ??? glucose chew tab Prophylaxis VTE risk: high. Pharmacologic thromboprophylaxis is indicated. - Continue enoxaparin 40 mg QDAY SubQ. Diet DIET NPO Except: NO EXCEPTIONS DIET TUBE FEEDING CONTINUOUS Activity Level: Activity as tolerated Weight bearing: No restrictions (WBAT) Consults IP CONSULT TO NUTRITIONAL SERV IP CONSULT TO RESPIRATORY IP CONSULT TO NUTRITIONAL SERV IP CONSULT TO INFECTIOUS DISEASES IP CONSULT TO TRACK SERVICE PERSON IP CONSULT TO SKIN CARE NURSE IP CONSULT TO TRACK SERVICE PERSON Disposition Medical Floor (Inpatient) Pending SNF placement Care Coordination Nursing staff updated with changes to care plan. Code Status Full Code Summary Problem List Bacterial pneumonia (POA: Yes) History of CVA (cerebrovascular accident) (POA: Yes) Paroxysmal tachycardia, unspecified (CMS/HCC) (POA: Yes) Essential (primary) hypertension (POA: Yes) Seizure disorder (CMS/HCC) (POA: Yes) Sepsis without acute organ dysfunction (CMS/HCC) (POA: Yes) Severe protein-calorie malnutrition (CMS/HCC) (POA: Yes) Tachypnea (POA: Yes) Chronic respiratory failure with hypoxia (CMS/HCC) (POA: Yes) Pressure ulcer of right heel, stage 3 (CMS/HCC) (POA: Yes) Dementia, vascular (CMS/HCC) (POA: Yes) Venessa Rosado DO Signed: 10/30/2022 10:28 AM * Nhung Wagner RN - 10/29/2022 11:36 PM CDT Problem: Impaired Gas Exchange Goal: Resp rate/effort will be within specified limits Outcome: Progressing Problem: Fall Risk Goal: Fall risk and fall related injury risk are minimized (interventions related to the fall risk can be found in the flowsheet documentation) Outcome: Progressing * Eliane Stein RN - 10/29/2022 7:12 PM CDT Sister made aware that tremoring in lips and extremities is a sign for this pt that depakote level is too low. shell sieve operator attending made aware. * Venessa Rosado DO - 10/29/2022 11:52 AM CDT Internal Medicine Progress Note Admission Date: 08/28/2022 Length of Stay: 62 Subjective 24h- Pt denies any pain or respiratory issues. Pt is slow to respond but does indicate answers to interview questions. No acute events overnight. Pt is resting comfortably at this time and breathing comfortably on humidified room air. Pt is attempting to vocalize more and able to read some lip movement. Objective Temp: [97.3 ??F (36.3 ??C)-98.1 ??F (36.7 ??C)] 98.1 ??F (36.7 ??C) Pulse: [88-98] 98 Resp: [16-20] 20 BP: (126-137)/(80-89) 137/89 O2 %: [21 %] 21 % Weight change: Intake/Output Summary (Last 24 hours) at 10/29/2022 1152 Last data filed at 10/29/2022 0945 Gross per 24 hour Intake 6300 ml Output 1200 ml Net 5100 ml Physical Exam Constitutional: General: He is not in acute distress. Appearance: He is diaphoretic. Comments: Awake. Interactive. Responds to verbal stimuli. Neck: Trachea: Tracheostomy present. Cardiovascular: Rate and Rhythm: Normal rate and regular rhythm. Heart sounds: Normal heart sounds. No murmur heard. Pulmonary: Effort: Pulmonary effort is normal. Breath sounds: Normal breath sounds. Comments: Supplemental oxygen being administered via trach collar at 10 L/min. Abdominal: General: Bowel sounds are normal. Palpations: Abdomen is soft. Tenderness: There is no abdominal tenderness. Skin: General: Skin is warm. Neurological: Mental Status: He is alert. Laboratory Data Recent Labs Component Name 10/28/2262010/26/2282910/24/22 0426 WBC 7.6 8.1 7.2 HGB 13.4 12.9 13.1 HCT 40.9 39.0 39.9 PLTCOUNT 182 225 248 MCV 94.0 92.6 92.6 Recent Labs Component Name 10/28/2262010/26/2282910/24/22 0426 NA 139 141 139 POTASSIUM 3.6 3.5 3.8 CL 104 102 103 CO2 26 26 27 BUN 16 15 15 CREATININE 0.46* 0.43* 0.45* Recent Labs Component Name 10/28/2262010/26/2282910/24/22 0426 CALCIUM 9.7 9.9 10.2 PHOS 2.8 2.8 2.6* Assessment and Plan Bi Tabor is a 62 year old male hospitalized with presumed bacteremia (due to Staphylococcus capitis) and feaee-bg-wmoruil respiratory failure with hypoxia. Hospital course complicated by hospital-acquired bacterial pneumonia/tracheitis due to Pseudomonas aeruginosa and Acinetobacter baummannii.His active/chronic diseases include cerebrovascular dementia, seizure disorder, dysphagia (post-PEG tube placement), CRF with hypoxia (post-tracheostomy tube placement in Jun, 2022), PAD (post-L AKA), and HTN. Pt is stable and waiting for placement. Yokta-os-mrkoxxk respiratory failure with hypoxia - Resolved Chronic respiratory failure (CRF) with hypoxia Bacterial PNA due to S. capitis- resolved HCAP- resolved Plan: Supplemental O2 via trach collar to maintain SpO2 >= 92%- not currently utilizing - Bronchial hygiene. - Continue levalbuterol nebulizer solution 1.25 mg Q 6 hrs INH. - completed a 10-day course of meropenem on 09/19. Hx Cerebrovascular accident (CVA) Plan: Secondary stroke prevention. - Continue atorvastatin 40 mg QDAY ET. Seizure disorder Plan: AED regimen. Continue levetiracetam 2000 mg BID ET. Continue divalproex 500 mg Q 6 hrs ET. Continue lacosamide 200 mg BID ET. Continue clobazam 20 mg BID ET. Essential (primary) hypertension (HTN) - Monitor to restart as indicated Protein-calorie malnutrition Dysphagia Clinical findings consistent with severe protein-calorie malnutrition. Plan: Follow up on nutrition/dietetics recommendations regarding further management of protein-calorie malnutrition. Enteral feedings via PEG tube. Pressure ulcer of right (R) heel, stage 3 Present on admission. Plan: Wound care per wound care consultants. ??? artificial tears Each Eye q8h ??? atorvastatin 40 mg Enteral Tube QDAY ??? chlorhexidine 15 mL Mouth/Throat BID ??? cloBAZam 20 mg Enteral Tube BID ??? divalproex sprinkle 500 mg Enteral Tube q6h ??? enoxaparin 40 mg Subcutaneous QDAY ??? guaiFENesin 10 mL Enteral Tube q6h ??? lacosamide 200 mg Enteral Tube BID ??? levalbuterol 1.25 mg Inhalation q6h ??? levETIRAcetam 2,000 mg Enteral Tube BID ??? scopolamine 1 patch Transdermal q72h And ??? scopolamine patch placement confirmation Transdermal BID ??? senna-docusate 1 tablet Enteral Tube BID ??? acetaminophen ??? dextrose IV for hypoglycemia OR dextrose IV for hypoglycemia ??? glucagon ??? glucose (Diabetic Use) ??? glucose (Diabetic Use) gel ??? glucose chew tab Prophylaxis VTE risk: high. Pharmacologic thromboprophylaxis is indicated. - Continue enoxaparin 40 mg QDAY SubQ. Diet DIET NPO Except: NO EXCEPTIONS DIET TUBE FEEDING CONTINUOUS Activity Level: Activity as tolerated Weight bearing: No restrictions (WBAT) Consults IP CONSULT TO NUTRITIONAL SERV IP CONSULT TO RESPIRATORY IP CONSULT TO NUTRITIONAL SERV IP CONSULT TO INFECTIOUS DISEASES IP CONSULT TO TRACK SERVICE PERSON IP CONSULT TO SKIN CARE NURSE IP CONSULT TO TRACK SERVICE PERSON Disposition Medical Floor (Inpatient) Pending SNF placement Care Coordination Nursing staff updated with changes to care plan. Code Status Full Code Summary Problem List Bacterial pneumonia (POA: Yes) History of CVA (cerebrovascular accident) (POA: Yes) Paroxysmal tachycardia, unspecified (CMS/HCC) (POA: Yes) Essential (primary) hypertension (POA: Yes) Seizure disorder (CMS/HCC) (POA: Yes) Sepsis without acute organ dysfunction (CMS/HCC) (POA: Yes) Severe protein-calorie malnutrition (CMS/HCC) (POA: Yes) Tachypnea (POA: Yes) Chronic respiratory failure with hypoxia (CMS/HCC) (POA: Yes) Pressure ulcer of right heel, stage 3 (CMS/HCC) (POA: Yes) Dementia, vascular (CMS/HCC) (POA: Yes) Venessa Rosado DO Signed: 10/29/2022 11:52 AM * Berny Pichardo RN - 10/28/2022 10:13 PM CDT Problem: Impaired Gas Exchange Goal: Resp rate/effort will be within specified limits Outcome: Progressing Problem: Ineffective Airway Clearance Goal: Patent airway Outcome: Progressing Problem: Fall Risk Goal: Fall risk and fall related injury risk are minimized (interventions related to the fall risk can be found in the flowsheet documentation) Outcome: Progressing Problem: Nutrient: Inadequate protein-energy intake Goal: Total intake will meet estimated nutrient needs Outcome: Progressing Problem: Oxygenation/Respiratory Function Goal: Patent airway Outcome: Progressing Goal: Respiratory rate/effort will be within specified limits Outcome: Progressing Problem: Care of Tracheostomy Goal: Tracheostomy tube and site will be maintained Outcome: Progressing Problem: Potential for Infection Goal: Insertion site without signs/symptoms of infection Outcome: Progressing Problem: Knowledge Deficit Goal: Patient/Significant other demonstrates understanding of Tracheostomy Outcome: Progressing Problem: Communication/Dysarthria Goal: STG - Patient will tolerate PMV trials Outcome: Progressing Problem: Pain/Discomfort Goal: Patient exhibits reduced pain/discomfort as evidenced by pain scores Outcome: Progressing Goal: Patient uses pharmacological and non-pharmacological pain management strategies. Outcome: Progressing Goal: Patient verbalizes acceptable level of pain relief and ability to engage in desired activity. Outcome: Progressing Problem: Skin Integrity Goal: Skin integrity is maintained or improved Outcome: Progressing Problem: Daily Care Goal: Daily care needs are met Outcome: Progressing * Gaurav Juarez MSW - 10/28/2022 3:07 PM CDT Summary Note Discharge Level of Care:SNF Discharge Destination:TBD Phone Number: Fax Number: Insurance Auth: Anticipated Mode of Transportation:EMS Contacts (Name, relationship, phone #): Adriane [phone] Anticipated DC Date:TBD Pending Needs: Accepting SNF Comments:SW followed up with the SNF referrals but no accepting SNF. [facility] [place] reviewing. CLARITA Ram 10/28/2022 * Ana Castro RD/NOLAN - 10/28/2022 10:19 AM CDT Nutrition Re-Assessment Brief Synopsis: Patient is diagnosed with severe malnutrition; Specific criteria can be found in assessment below Nutrition Plan: NPO + TF Tube Feeding Recommendations: Continuous: Nepro at 60 ml/hr. Provides 2592 kcal, 117 g protein, 232 g carbohydrate, 1047 ml free water. +250 ml q4 hrs free water flush or per MD if not on additional fluids Recommendations to Physician: See TF recs above Monitor electrolytes Code for severe malnutrition Comments: Pt scheduled for reassessment. Pt receiving TF of Nepro at goal via PEG. 0mL gastric output reported 10/26 ; 0mL residuals reported 10/25. LBM reported 10/26. Pt pending placement. Will continue to follow. 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 Diet order accuracy Current diet order: NPO Current tube feeding order: Nepro at 60mL/hr Nutrition recommendation: alter/change nutrition order P.O.Intake for the past 48 hrs:No data recorded Supplement(s) Consumed- Last 48 hours None Food Allergies: No known food allergies GI Concerns: None Chewing/Swallowing: Dysphagia Pain affecting intake: No Admission weight: Weight: 63.5 kg (140 lb) (08/28/22 1101) Recent Weights/Methods 09/21/2022 0400 09/24/2022 0400 09/26/2022 2112 10/02/2022 0400 10/05/2022 0445 10/05/2022 0506 10/11/2022 0400 10/12/2022 0400 Weight: 63.1 kg (139 lb 3.2 oz) 61.5 kg (135 lb 8 oz) 61.5 kg (135 lb 9.6 oz) 60.8 kg (134 lb) -- 54 kg (119 lb) 54.4 kg (120 lb) 54.9 kg (121 lb) Weight Method (Utilize Scales): -- -- -- Bedscale -- Bedscale Bedscale Bedscale Wt Comments: New wt ordered 10/20 - no new wt recorded; new wt ordered today Height: 182.9 cm (6' 0.01 ) IBW/lb (Calculated) Male: [id number] , Laboratory values reviewed. Recent Labs Component Name 10/28/22 0621 10/26/22 0830 10/24/22 0426 10/12/22 0716 10/09/22 1204 08/30/22 0039 08/28/22 2224 08/28/22 1251 BUN 16 15 15 - 14 - 11 12 CREATININE 0.46* 0.43* 0.45* - 0.39* - 0.50* 0.51* NA 139 141 139 - 140 - 142 139 POTASSIUM 3.6 3.5 3.8 - 4.0 - 3.9 4.5 CL 104 102 103 - 108* - 111* 103 CO2 26 26 27 - 24 - 24 27 GLUCOSE 92 99 104 - 115 - 86 100 CALCIUM 9.7 9.9 10.2 - 9.8 - 8.8 9.8 PROT - - - - 6.9 - 6.0 7.5 ALB - - - - 3.0* - 2.0* 2.5* TBILI - - - - 0.1* - 0.6 0.5 ALKPHOS - - - - 83 - 67 88 ALT - - - - 10 - 5 6 AST - - - - 15 - 13 14 ANIONGAP 13 17 13 - 12 - 11 14 BCR 35* 35* 33* - 36* - 22 24* OSMOLALITY 289 293 289 - 291 - 293 288 AGRATIO - - - - 0.8* - 0.5* 0.5* EGFR >90 >90 >90 - >90 - >90 >90 - = values in this interval not displayed. Medications noted. Current Facility-Administered Medications Medication ??? acetaminophen (Tylenol) tablet 650 mg ??? artificial tears ophthalmic ointment ??? atorvastatin (Lipitor) tablet 40 mg ??? chlorhexidine (Peridex) 0.12 % oral solution 15 mL ??? cloBAZam (Onfi) tablet 20 mg ??? dextrose 10 % IV bolus Or ??? dextrose 10 % IV bolus ??? divalproex sprinkle (Depakote Sprinkle) capsule 500 mg ??? enoxaparin (Lovenox) injection 40 mg ??? glucagon (Glucagen) injection 1 mg ??? glucose (Diabetic Use) (Dex4 Glucose) oral liquid ??? glucose (Diabetic Use) oral gel ??? glucose chew tablet 4 tablet ??? guaiFENesin (Robitussin) solution 10 mL ??? lacosamide (Vimpat) tablet 200 mg ??? levalbuterol (Xopenex) nebulizer solution 1.25 mg ??? levETIRAcetam (Keppra) tablet 2,000 mg ??? scopolamine (Transderm-Scop) 1 patch And ??? scopolamine patch placement confirmation ??? senna-docusate (Senokot-S) tablet 1 tablet Skin/Wound: WDL Estimated Energy Needs: KCAL: 4868-2867 (35-45kcal/kg (ABW)) Protein (g): 95-125g (20% of estimated kcal needs) Fluid (ml):1 ml/kcal Needs based on: Kcal/kg- (Comment) (ABW 54.9kg) Recommended Access Route: TF Malnutrition Etiology: Malnutrition in the context of: chronic disease, Malnutrition Severity: Severe BMI: Body mass index is 16.41 kg/m??. GI Concerns: None Nutrition Focused Physical Assessment: Loss of Subcutaneous Fat Orbital: Severe Buccal: Severe Tricep: Severe Muscle Loss Temples (Temporalis Muscle): Severe Clavicles (Pectoralis & Deltoids): Severe Shoulders (Deltoids): Severe Nutrition Care Process (2) Nutrition Diagnostic Statement (2): Malnutrition related to:: inadequate protein-energy intake as evidenced by:: unintentional weight loss;BMI less than 19;loss of subcutaneous fat;loss of muscle mass Nutrition Diagnostic Statement Progress: New diagnostic statement established Nutrition Intervention: Enteral nutrition: Monitoring: TF, BM, labs, meds, weight Evaluation: Nutrition Goal: Total intake will meet estimated nutrient needs Nutrition Goal Timeframe: Throughout stay Nutrition Goal Progress: Continue with current goal [id number] * Suresh Jaquez RN - 10/28/2022 10:03 AM CDT Case Management Progress Note Anticipated level of care at discharge: Custodial - Skilled Facility Bing notified for reconsideration. Laurita, Continued Care and Services - Admitted Since 08/28/2022 Destination Service Provider Request Status Selected Services Address Phone Fax Patient Preferred [facility] Pending - Request Sent N/A [address] [address] [phone] -- [facility]) Pending - Request Sent N/A [address] [facility] [address] -- Current Capacity last updated by Yu Nguyễn on 04/21/2022 1237 176 Internal Comment last updated by Gaurav Juarez 10/20/2022 0936 SW left VM for admissions 10/20 [facility] Pending - Request Sent N/A [address] [place] [address] [phone] -- Internal Comment last updated by Gaurav Juarez D 10/20/2022 0931 SW called and left message for admissions 10/20 SW called and no option for a voice mail 10/19 [facility] Pending - Request Sent N/A [address] [facility] [address] [phone] -- [facility] Pending - Request Sent N/A [address] [facility] [phone] -- [facility] ([facility]) Pending - Request Sent N/A [address] [facility] [place] [address] -- [facility] Pending - Request Sent N/A [address] [facility] [phone] -- [facility] Declined Facility cannot provide for patient's needs, Acuity too high N/A [address] [facility] [phone] -- [facility] Declined Facility cannot provide for patient's needs N/A [address] [address] -- [facility] Declined N/A [address] [facility] [address] [phone] -- [facility] Declined N/A [address] [address] [phone] -- [facility] Declined N/A [address] [place] [address] [phone] -- [facility] [place] ([facility]) Declined N/A [address] [facility] [address] -- [facility] Declined N/[place] [address] [place] [address] -- [facility] Declined N/A [address] [facility] [address] [phone] -- [facility] Declined Facility cannot provide for patient's needs N/A [address] [facility] [phone] -- [facility] Declined N/A [address] [facility] [phone] -- [facility] Declined N/A [address] [facility] [address] -- [facility] Declined N/A [address] [facility] [address] [phone] -- [facility] Declined Facility cannot provide for patient's needs, Thank you for this referral. N/A [address] [facility] [address] [phone] -- Internal Comment last updated by Gaurav Juarez 10/05/2022 1055 SW called and left VM for Chanel in admissions [phone] [facility] Declined Facility cannot provide for patient's needs N/A [address] [facility] [address] [phone] -- Internal Comment last updated by Yessica Hall, WEB MARKETING SPECIALIST 10/13/2022 1346 They do not accept new TRACH. Trach has to be 6 months old- per Maryan admission [facility] Declined Facility cannot provide for patient's needs N/A [address] [facility] [address] [phone] -- [facility])Declined Facility cannot provide for patient's needs N/A [address] [facility] [phone] -- Current Capacity last updated by Yu Nguyễn on 04/21/2022 1234 118 Internal Comment last updated by Gaurav Juarez 10/20/2022 0933 SW called and left VM for admissions 10/20 [facility] Declined Bed not available N/A [address] [facility] [address] [phone] -- Internal Comment last updated by Gaurav Juarez 10/19/2022 0918 SW called and admissions is reviewing 10/19 [facility] Declined N/A [address] [facility] [id number] -- Selected Continued Care - Prior Encounters Includes continued care and service providers with selected services from prior encounters from 05/30/2022 to 10/28/2022 Discharged on 06/03/2022 Admission date: 05/30/2022 - Discharge disposition: [facility] Facility Destination Service Provider Selected Services Address Phone Fax Patient Preferred [facility] [address] [facility] [phone] -- Basic Needs Assessment (BNA) Score: Complex Needs Assessment (REPORTING COORDINATOR) Score: Anticipated Discharge Date: 11/01/22 Transportation at Discharge: Ambulance Transportation to MD: Equipment at Home: Equipment at Home: Facility Equipment Additional DME needed: Pharmacy benefit: Yes Comments: Auth Number (if required) NH: DME: Needed for Medications: Transportation: Name: Suresh Jaquez RN Phone: [phone] * Suresh Jaquez RN - 10/28/2022 9:44 AM CDT Case Management Progress Note Anticipated level of care at discharge: Custodial - Skilled Facility Difficult placement due to new trach, Jul 22. Additional referrals sent. CM continues to follow fordischarge. Basic Needs Assessment (BNA) Score: Complex Needs Assessment (REPORTING COORDINATOR) Score: Anticipated Discharge Date: 11/01/22 Transportation at Discharge: Ambulance Transportation to MD: Equipment at Home: Equipment at Home: Facility Equipment Additional DME needed: Pharmacy benefit: Yes Comments: Auth Number (if required) NH: DME: Needed for Medications: Transportation: Name: Suresh Jaquez RN Phone: [phone] * Carmelina Gould RN - 10/28/2022 9:28 AM CDT Problem: Fall Risk Goal: Fall risk and fall related injury risk are minimized (interventions related to the fall risk can be found in the flowsheet documentation) Outcome: Progressing Problem: Oxygenation/Respiratory Function Goal: Patent airway Outcome: Progressing Problem: Care of Tracheostomy Goal: Tracheostomy tube and site will be maintained Outcome: Progressing * Venessa Rosado DO - 10/28/2022 9:09 AM CDT Internal Medicine Progress Note Admission Date: 08/28/2022 Length of Stay: 61 Subjective 24h- Pt denies any pain or respiratory issues. Pt is slow to respond but does indicate answers to interview questions. No acute events overnight. Pt is resting comfortably at this time and breathing comfortably on humidified room air. Objective Temp: [97.3 ??F (36.3 ??C)-97.9 ??F (36.6 ??C)] 97.3 ??F (36.3 ??C) Pulse: [94-102] 102 Resp: [16] 16 BP: (126-137)/(80-96) 130/86 O2 %: [21 %] 21 % Weight change: Intake/Output Summary (Last 24 hours) at 10/28/2022 0909 Last data filed at 10/28/2022 0714 Gross per 24 hour Intake 1570 ml Output 650 ml Net 920 ml Physical Exam Constitutional: General: He is not in acute distress. Appearance: He is diaphoretic. Comments: Awake. Interactive. Responds to verbal stimuli. Neck: Trachea: Tracheostomy present. Cardiovascular: Rate and Rhythm: Normal rate and regular rhythm. Heart sounds: Normal heart sounds. No murmur heard. Pulmonary: Effort: Pulmonary effort is normal. Breath sounds: Normal breath sounds. Comments: Supplemental oxygen being administered via trach collar at 10 L/min. Abdominal: General: Bowel sounds are normal. Palpations: Abdomen is soft. Tenderness: There is no abdominal tenderness. Skin: General: Skin is warm. Neurological: Mental Status: He is alert. Laboratory Data Recent Labs Component Name 10/28/2262010/26/2282910/24/22 0426 WBC 7.6 8.1 7.2 HGB 13.4 12.9 13.1 HCT 40.9 39.0 39.9 PLTCOUNT 182 225 248 MCV 94.0 92.6 92.6 Recent Labs Component Name 10/28/2262010/26/22 0830 10/24/22 0426 NA 139 141 139 POTASSIUM 3.6 3.5 3.8 CL 104 102 103 CO2 26 26 27 BUN 16 15 15 CREATININE 0.46* 0.43* 0.45* Recent Labs Component Name 10/28/2262010/26/2282910/24/22 0426 CALCIUM 9.7 9.9 10.2 PHOS 2.8 2.8 2.6* Assessment and Plan Bi Tabor is a 62 year old male hospitalized with presumed bacteremia (due to Staphylococcus capitis) and ygobo-fi-ddsbhzf respiratory failure with hypoxia. Hospital course complicated by hospital-acquired bacterial pneumonia/tracheitis due to Pseudomonas aeruginosa and Acinetobacter baummannii.His active/chronic diseases include cerebrovascular dementia, seizure disorder, dysphagia (post-PEG tube placement), CRF with hypoxia (post-tracheostomy tube placement in Jun, 2022), PAD (post-L AKA), and HTN. Pt is stable and waiting for placement. Xqqrh-by-gvwotsx respiratory failure with hypoxia - Resolved Chronic respiratory failure (CRF) with hypoxia Bacterial PNA due to S. capitis- resolved HCAP- resolved Plan: Supplemental O2 via trach collar to maintain SpO2 >= 92%- not currently utilizing - Bronchial hygiene. - Continue levalbuterol nebulizer solution 1.25 mg Q 6 hrs INH. - completed a 10-day course of meropenem on 09/19. Hx Cerebrovascular accident (CVA) Plan: Secondary stroke prevention. - Continue atorvastatin 40 mg QDAY ET. Seizure disorder Plan: AED regimen. Continue levetiracetam 2000 mg BID ET. Continue divalproex 500 mg Q 6 hrs ET. Continue lacosamide 200 mg BID ET. Continue clobazam 20 mg BID ET. Essential (primary) hypertension (HTN) - Monitor to restart as indicated Protein-calorie malnutrition Dysphagia Clinical findings consistent with severe protein-calorie malnutrition. Plan: Follow up on nutrition/dietetics recommendations regarding further management of protein-calorie malnutrition. Enteral feedings via PEG tube. Pressure ulcer of right (R) heel, stage 3 Present on admission. Plan: Wound care per wound care consultants. ??? artificial tears Each Eye q8h ??? atorvastatin 40 mg Enteral Tube QDAY ??? chlorhexidine 15 mL Mouth/Throat BID ??? cloBAZam 20 mg Enteral Tube BID ??? divalproex sprinkle 500 mg Enteral Tube q6h ??? enoxaparin 40 mg Subcutaneous QDAY ??? guaiFENesin 10 mL Enteral Tube q6h ??? lacosamide 200 mg Enteral Tube BID ??? levalbuterol 1.25 mg Inhalation q6h ??? levETIRAcetam 2,000 mg Enteral Tube BID ??? scopolamine 1 patch Transdermal q72h And ??? scopolamine patch placement confirmation Transdermal BID ??? senna-docusate 1 tablet Enteral Tube BID ??? acetaminophen ??? dextrose IV for hypoglycemia OR dextrose IV for hypoglycemia ??? glucagon ??? glucose (Diabetic Use) ??? glucose (Diabetic Use) gel ??? glucose chew tab Prophylaxis VTE risk: high. Pharmacologic thromboprophylaxis is indicated. - Continue enoxaparin 40 mg QDAY SubQ. Diet DIET NPO Except: NO EXCEPTIONS DIET TUBE FEEDING CONTINUOUS Activity Level: Activity as tolerated Weight bearing: No restrictions (WBAT) Consults IP CONSULT TO NUTRITIONAL SERV IP CONSULT TO RESPIRATORY IP CONSULT TO NUTRITIONAL SERV IP CONSULT TO INFECTIOUS DISEASES IP CONSULT TO TRACK SERVICE PERSON IP CONSULT TO SKIN CARE NURSE IP CONSULT TO TRACK SERVICE PERSON Disposition Medical Floor (Inpatient) Pending SNF placement Care Coordination Nursing staff updated with changes to care plan. Code Status Full Code Summary Problem List Bacterial pneumonia (POA: Yes) History of CVA (cerebrovascular accident) (POA: Yes) Paroxysmal tachycardia, unspecified (CMS/HCC) (POA: Yes) Essential (primary) hypertension (POA: Yes) Seizure disorder (CMS/HCC) (POA: Yes) Sepsis without acute organ dysfunction (CMS/HCC) (POA: Yes) Severe protein-calorie malnutrition (CMS/HCC) (POA: Yes) Tachypnea (POA: Yes) Chronic respiratory failure with hypoxia (CMS/HCC) (POA: Yes) Pressure ulcer of right heel, stage 3 (CMS/HCC) (POA: Yes) Dementia, vascular (CMS/HCC) (POA: Yes) Venessa Rosado DO Signed: 10/28/2022 9:09 AM * David Govea RCP - 10/28/2022 6:19 AM CDT Patient remains on humidified room air (21% FIO2), with oxygen saturations at 100% at current time of therapy. Secretions are thick white, clear and clears quite well with suctioning via trach. Continue to monitor. * Mara Lloyd RN - 10/28/2022 4:44 AM CDT Resting quietly in bed all shift. No distress noted during the night. Pt remains on 10L medical airwith humidity. Pt suctioned 2 times during the night d/t sputum build up. Pt turned every 2 hours to prevent further skin break and maintain current status. TF currently infusing at 6 0ml/hr with 250ml water flush q 4 hours. Purewick remains in place and is connected to suction. No bowel movementsduring taper and floater. * Mara Lloyd RN - 10/27/2022 9:14 PM CDT Problem: Impaired Gas Exchange Goal: Resp rate/effort will be within specified limits Outcome: Progressing Problem: Ineffective Airway Clearance Goal: Patent airway Outcome: Progressing Problem: Fall Risk Goal: Fall risk and fall related injury risk are minimized (interventions related to the fall risk can be found in the flowsheet documentation) Outcome: Progressing Problem: Nutrient: Inadequate protein-energy intake Goal: Total intake will meet estimated nutrient needs Outcome: Progressing Problem: Oxygenation/Respiratory Function Goal: Patent airway Outcome: Progressing Goal: Respiratory rate/effort will be within specified limits Outcome: Progressing Problem: Care of Tracheostomy Goal: Tracheostomy tube and site will be maintained Outcome: Progressing Problem: Potential for Infection Goal: Insertion site without signs/symptoms of infection Outcome: Progressing Problem: Knowledge Deficit Goal: Patient/Significant other demonstrates understanding of Tracheostomy Outcome: Progressing Problem: Communication/Dysarthria Goal: STG - Patient will tolerate PMV trials Outcome: Progressing Problem: Pain/Discomfort Goal: Patient exhibits reduced pain/discomfort as evidenced by pain scores Outcome: Progressing Goal: Patient uses pharmacological and non-pharmacological pain management strategies. Outcome: Progressing Goal: Patient verbalizes acceptable level of pain relief and ability to engage in desired activity. Outcome: Progressing Problem: Skin Integrity Goal: Skin integrity is maintained or improved Outcome: Progressing Problem: Daily Care Goal: Daily care needs are met Outcome: Progressing * Venessa Rosado DO - 10/27/2022 12:55 PM CDT Internal Medicine Progress Note Admission Date: 08/28/2022 Length of Stay: 60 Subjective 24h- Pt denies any pain or respiratory issues. Pt is slow to respond but does indicate answers to interview questions. No acute events overnight. Pt is resting comfortably at this time and breathing comfortably. Objective Temp: [97.7 ??F (36.5 ??C)-99.5 ??F (37.5 ??C)] 99.5 ??F (37.5 ??C) Pulse: [105-117] 105 Resp: [16-18] 16 BP: (126-149)/(78-90) 126/78 O2 %: [21 %] 21 % Weight change: Intake/Output Summary (Last 24 hours) at 10/27/2022 1255 Last data filed at 10/27/2022 0621 Gross per 24 hour Intake 1320 ml Output 0 ml Net 1320 ml Physical Exam Constitutional: General: He is not in acute distress. Comments: Awake. Interactive. Responds to verbal stimuli. Neck: Trachea: Tracheostomy present. Cardiovascular: Rate and Rhythm: Normal rate and regular rhythm. Heart sounds: Normal heart sounds. No murmur heard. Pulmonary: Effort: Pulmonary effort is normal. Breath sounds: Normal breath sounds. Comments: Supplemental oxygen being administered via trach collar at 10 L/min. Abdominal: General: Bowel sounds are normal. Palpations: Abdomen is soft. Tenderness: There is no abdominal tenderness. Skin: General: Skin is warm and dry. Neurological: Mental Status: He is alert. Laboratory Data Recent Labs Component Name 10/26/22 0830 10/24/2242510/22/22 0431 WBC 8.1 7.2 6.5 HGB 12.9 13.1 12.1 HCT 39.0 39.9 36.9 PLTCOUNT 225 248 233 MCV 92.6 92.6 94.1 Recent Labs Component Name 10/26/22 0830 10/24/226 10/22/22 0431 NA 141 139 140 POTASSIUM 3.5 3.8 3.8 CL 102 103 103 CO2 26 27 25 BUN 15 15 14 CREATININE 0.43* 0.45* 0.52* Recent Labs Component Name 10/26/22 0830 10/24/226 10/22/22 0431 CALCIUM 9.9 10.2 9.9 PHOS 2.8 2.6* 3.3 Assessment and Plan Bi Tabor is a 62 year old male hospitalized with presumed bacteremia (due to Staphylococcus capitis) and dinla-ae-yvlgrry respiratory failure with hypoxia. Hospital course complicated by hospital-acquired bacterial pneumonia/tracheitis due to Pseudomonas aeruginosa and Acinetobacter baummannii.His active/chronic diseases include cerebrovascular dementia, seizure disorder, dysphagia (post-PEG tube placement), CRF with hypoxia (post-tracheostomy tube placement in Jun, 2022), PAD (post-L AKA), and HTN. Pt is stable and waiting for placement. [id number]-[id number] respiratory failure with hypoxia - Resolved Chronic respiratory failure (CRF) with hypoxia Bacterial PNA due to S. capitis- resolved HCAP- resolved Plan: Supplemental O2 via trach collar to maintain SpO2 >= 92%. - Bronchial hygiene. - Continue levalbuterol nebulizer solution 1.25 mg Q 6 hrs INH. - completed a 10-day course of meropenem on 09/19. Hx Cerebrovascular accident (CVA) Plan: Secondary stroke prevention. - Continue atorvastatin 40 mg QDAY ET. Seizure disorder Plan: AED regimen. Continue levetiracetam 2000 mg BID ET. Continue divalproex 500 mg Q 6 hrs ET. Continue lacosamide 200 mg BID ET. Continue clobazam 20 mg BID ET. Essential (primary) hypertension (HTN) - Monitor to restart as indicated Protein-calorie malnutrition Dysphagia Clinical findings consistent with severe protein-calorie malnutrition. Plan: Follow up on nutrition/dietetics recommendations regarding further management of protein-calorie malnutrition. Enteral feedings via PEG tube. Pressure ulcer of right (R) heel, stage 3 Present on admission. Plan: Wound care per wound care consultants. ??? artificial tears Each Eye q8h ??? atorvastatin 40 mg Enteral Tube QDAY ??? chlorhexidine 15 mL Mouth/Throat BID ??? cloBAZam 20 mg Enteral Tube BID ??? divalproex sprinkle 500 mg Enteral Tube q6h ??? enoxaparin 40 mg Subcutaneous QDAY ??? guaiFENesin 10 mL Enteral Tube q6h ??? lacosamide 200 mg Enteral Tube BID ??? levalbuterol 1.25 mg Inhalation q6h ??? levETIRAcetam 2,000 mg Enteral Tube BID ??? scopolamine 1 patch Transdermal q72h And ??? scopolamine patch placement confirmation Transdermal BID ??? senna-docusate 1 tablet Enteral Tube BID ??? acetaminophen ??? dextrose IV for hypoglycemia OR dextrose IV for hypoglycemia ??? glucagon ??? glucose (Diabetic Use) ??? glucose (Diabetic Use) gel ??? glucose chew tab Prophylaxis VTE risk: high. Pharmacologic thromboprophylaxis is indicated. - Continue enoxaparin 40 mg QDAY SubQ. Diet DIET NPO Except: NO EXCEPTIONS DIET TUBE FEEDING CONTINUOUS Activity Level: Activity as tolerated Weight bearing: No restrictions (WBAT) Consults IP CONSULT TO NUTRITIONAL SERV IP CONSULT TO RESPIRATORY IP CONSULT TO NUTRITIONAL SERV IP CONSULT TO INFECTIOUS DISEASES IP CONSULT TO TRACK SERVICE PERSON IP CONSULT TO SKIN CARE NURSE IP CONSULT TO TRACK SERVICE PERSON Disposition Medical Floor (Inpatient) Pending SNF placement Care Coordination Nursing staff updated with changes to care plan. Code Status Full Code Summary Problem List Bacterial pneumonia (POA: Yes) History of CVA (cerebrovascular accident) (POA: Yes) Paroxysmal tachycardia, unspecified (CMS/HCC) (POA: Yes) Essential (primary) hypertension (POA: Yes) Seizure disorder (CMS/HCC) (POA: Yes) Sepsis without acute organ dysfunction (CMS/HCC) (POA: Yes) Severe protein-calorie malnutrition (CMS/HCC) (POA: Yes) Tachypnea (POA: Yes) Chronic respiratory failure with hypoxia (CMS/HCC) (POA: Yes) Pressure ulcer of right heel, stage 3 (CMS/HCC) (POA: Yes) Dementia, vascular (CMS/HCC) (POA: Yes) Venessa Rosado DO Signed: 10/27/2022 12:55 PM * Suzy Farmer RN - 10/27/2022 12:24 PM CDT Care Coordination Progress Note Anticipated level of care at discharge: Custodial - Skilled Facility Discharge Plan: CM [facility] or her sister kylie will accept this pt back. They are unable to accommodate his needs. Sister Adriane notified and addition referrals sent first choice is [facility] in [place] READMISSION RISK SCORE is 27 at 12:25 PM 10/27/2022. Anticipated Discharge Date: 10/29/22 Patient/Family provided with list of resources? Yes Preferred Provider / High Quality Network List given?: Yes Reason for provider choice: Unknown Family Support (Name and Phone): Extended Emergency Contact Information Primary Emergency Contact: Adriane Pearson Mobile Relation: Sister Shop Mechanic needed? No Secondary Emergency Contact: SharonaAmarjit waldron [facility] Relation: Brother Transportation at Discharge: Ambulance Equipment at Home: Equipment at Home: Facility Equipment List DME patient requires but does not have: DME Provider: Medication affordability concerns: No Follow Up Appointment: Transportation to MD: Auth Number (if required): [place]: DME: Medications: Transportation: Name: Suzy Farmer RN Phone: [phone] * Suzy Farmer RN - 10/27/2022 12:19 PM CDT Images from the original note were not included. Care Coordination Progress Note ?? Anticipated level of care at discharge: Custodial - Skilled Facility Discharge Plan: Discharge Plan: LASHON [facility] with Maribell from [facility] [phone][facility] She will have her assistant shift supervisor contact CM when she is available ?? LASHON had spoken with sister Adriane ?? READMISSION RISK SCORE is 27 at 11:42 AM 10/26/2022. ?? Anticipated Discharge Date: 10/29/22 ?? Patient/Family provided with list of resources? Yes Preferred Provider / High Quality Network List given?: Yes Reason for provider choice: Unknown ?? Family Support (Name and Phone): Extended Emergency Contact Information Primary Emergency Contact: Adriane Pearson Mobile Relation: Sister Shop Mechanic needed? No Secondary Emergency Contact: SharonaShantAmarjit [facility] Relation: Brother ?? Patient is alert & orientated or has capacity for decision making: Yes?? If No , Legal or Designated Decision Maker: N/A ?? Transportation at Discharge: Ambulance ?? Equipment at Home: Equipment at Home: Facility Equipment ?? List DME patient requires but does not have: ?? DME Provider: ?? Medication affordability concerns: No? Follow Up Appointment: ?? Transportation to MD: ?? Auth Number (if required): [place]: DME: Medications: Transportation: ?? Name: Suzy Farmer RN Phone: [phone] Revision History * Berny Pichardo RN - 10/27/2022 11:56 AM CDT Problem: Impaired Gas Exchange Goal: Resp rate/effort will be within specified limits Outcome: Progressing Problem: Ineffective Airway Clearance Goal: Patent airway Outcome: Progressing Problem: Fall Risk Goal: Fall risk and fall related injury risk are minimized (interventions related to the fall risk can be found in the flowsheet documentation) Outcome: Progressing Problem: Nutrient: Inadequate protein-energy intake Goal: Total intake will meet estimated nutrient needs Outcome: Progressing Problem: Oxygenation/Respiratory Function Goal: Patent airway Outcome: Progressing Goal: Respiratory rate/effort will be within specified limits Outcome: Progressing Problem: Care of Tracheostomy Goal: Tracheostomy tube and site will be maintained Outcome: Progressing Problem: Potential for Infection Goal: Insertion site without signs/symptoms of infection Outcome: Progressing Problem: Knowledge Deficit Goal: Patient/Significant other demonstrates understanding of Tracheostomy Outcome: Progressing Problem: Communication/Dysarthria Goal: STG - Patient will tolerate PMV trials Outcome: Progressing Problem: Pain/Discomfort Goal: Patient exhibits reduced pain/discomfort as evidenced by pain scores Outcome: Progressing Goal: Patient uses pharmacological and non-pharmacological pain management strategies. Outcome: Progressing Goal: Patient verbalizes acceptable level of pain relief and ability to engage in desired activity. Outcome: Progressing Problem: Skin Integrity Goal: Skin integrity is maintained or improved Outcome: Progressing Problem: Daily Care Goal: Daily care needs are met Outcome: Progressing * Mara Lloyd RN - 10/26/2022 10:01 PM CDT Problem: Impaired Gas Exchange Goal: Resp rate/effort will be within specified limits Outcome: Progressing Problem: Ineffective Airway Clearance Goal: Patent airway Outcome: Progressing Problem: Fall Risk Goal: Fall risk and fall related injury risk are minimized (interventions related to the fall risk can be found in the flowsheet documentation) Outcome: Progressing Problem: Nutrient: Inadequate protein-energy intake Goal: Total intake will meet estimated nutrient needs Outcome: Progressing Problem: Oxygenation/Respiratory Function Goal: Patent airway Outcome: Progressing Goal: Respiratory rate/effort will be within specified limits Outcome: Progressing Problem: Care of Tracheostomy Goal: Tracheostomy tube and site will be maintained Outcome: Progressing Problem: Potential for Infection Goal: Insertion site without signs/symptoms of infection Outcome: Progressing Problem: Knowledge Deficit Goal: Patient/Significant other demonstrates understanding of Tracheostomy Outcome: Progressing Problem: Communication/Dysarthria Goal: STG - Patient will tolerate PMV trials Outcome: Progressing Problem: Pain/Discomfort Goal: Patient exhibits reduced pain/discomfort as evidenced by pain scores Outcome: Progressing Goal: Patient uses pharmacological and non-pharmacological pain management strategies. Outcome: Progressing Goal: Patient verbalizes acceptable level of pain relief and ability to engage in desired activity. Outcome: Progressing Problem: Skin Integrity Goal: Skin integrity is maintained or improved Outcome: Progressing Problem: Daily Care Goal: Daily care needs are met Outcome: Progressing * Venessa Rosado DO - 10/26/2022 5:02 PM CDT Internal Medicine Progress Note Admission Date: 08/28/2022 Length of Stay: 59 Subjective 24h- Pt denies any pain or respiratory issues. Pt is slow to respond but does indicate answers to interview questions. No acute events overnight. Pt is resting comfortably at this time. Objective Temp: [97.9 ??F (36.6 ??C)] 97.9 ??F (36.6 ??C) Pulse: [97] 97 Resp: [18] 18 BP: (141)/(93) 141/93 O2 %: [21 %] 21 % Weight change: Intake/Output Summary (Last 24 hours) at 10/26/2022 1702 Last data filed at 10/25/20222057 Gross per 24 hour Intake -- Output 0 ml Net 0 ml Physical Exam Constitutional: General: He is not in acute distress. Comments: Awake. Interactive. Responds to verbal stimuli. Neck: Trachea: Tracheostomy present. Cardiovascular: Rate and Rhythm: Normal rate and regular rhythm. Heart sounds: Normal heart sounds. No murmur heard. Pulmonary: Effort: Pulmonary effort is normal. Breath sounds: Normal breath sounds. Comments: Supplemental oxygen being administered via trach collar at 10 L/min. Abdominal: General: Bowel sounds are normal. Palpations: Abdomen is soft. Tenderness: There is no abdominal tenderness. Skin: General: Skin is warm and dry. Neurological: Mental Status: He is alert. Laboratory Data Recent Labs Component Name 10/26/22 0830 10/24/22 0426 10/22/22 0431 WBC 8.1 7.2 6.5 HGB 12.9 13.1 12.1 HCT 39.0 39.9 36.9 PLTCOUNT 225 248 233 MCV 92.6 92.6 94.1 Recent Labs Component Name 10/26/22 0830 10/24/22 0426 10/22/22 0431 NA 141 139 140 POTASSIUM 3.5 3.8 3.8 CL 102 103 103 CO2 26 27 25 BUN 15 15 14 CREATININE 0.43* 0.45* 0.52* Recent Labs Component Name 10/26/2230 10/24/226 10/22/22 0431 CALCIUM 9.9 10.2 9.9 PHOS 2.8 2.6* 3.3 Assessment and Plan Bi Tabor is a 62 year old male hospitalized with presumed bacteremia (due to Staphylococcus capitis) and tyqwp-wd-bzvlewb respiratory failure with hypoxia. Hospital course complicated by hospital-acquired bacterial pneumonia/tracheitis due to Pseudomonas aeruginosa and Acinetobacter baummannii.His active/chronic diseases include cerebrovascular dementia, seizure disorder, dysphagia (post-PEG tube placement), CRF with hypoxia (post-tracheostomy tube placement in Jun, 2022), PAD (post-L AKA), and HTN. Pt is stable and waiting for placement. Loktb-tk-ompjaiz respiratory failure with hypoxia - Resolved Chronic respiratory failure (CRF) with hypoxia Bacterial PNA due to S. capitis- resolved HCAP- resolved Plan: Supplemental O2 via trach collar to maintain SpO2 >= 92%. - Bronchial hygiene. - Continue levalbuterol nebulizer solution 1.25 mg Q 6 hrs INH. - completed a 10-day course of meropenem on 09/19. Hx Cerebrovascular accident (CVA) Plan: Secondary stroke prevention. - Continue atorvastatin 40 mg QDAY ET. Seizure disorder Plan: AED regimen. Continue levetiracetam 2000 mg BID ET. Continue divalproex 500 mg Q 6 hrs ET. Continue lacosamide 200 mg BID ET. Continue clobazam 20 mg BID ET. Essential (primary) hypertension (HTN) - Monitor to restart as indicated Protein-calorie malnutrition Dysphagia Clinical findings consistent with severe protein-calorie malnutrition. Plan: Follow up on nutrition/dietetics recommendations regarding further management of protein-calorie malnutrition. Enteral feedings via PEG tube. Pressure ulcer of right (R) heel, stage 3 Present on admission. Plan: Wound care per wound care consultants. ??? artificial tears Each Eye q8h ??? atorvastatin 40 mg Enteral Tube QDAY ??? chlorhexidine 15 mL Mouth/Throat BID ??? cloBAZam 20 mg Enteral Tube BID ??? divalproex sprinkle 500 mg Enteral Tube q6h ??? enoxaparin 40 mg Subcutaneous QDAY ??? guaiFENesin 10 mL Enteral Tube q6h ??? lacosamide 200 mg Enteral Tube BID ??? levalbuterol 1.25 mg Inhalation q6h ??? levETIRAcetam 2,000 mg Enteral Tube BID ??? scopolamine 1 patch Transdermal q72h And ??? scopolamine patch placement confirmation Transdermal BID ??? senna-docusate 1 tablet Enteral Tube BID ??? acetaminophen ??? dextrose IV for hypoglycemia OR dextrose IV for hypoglycemia ??? glucagon ??? glucose (Diabetic Use) ??? glucose (Diabetic Use) gel ??? glucose chew tab Prophylaxis VTE risk: high. Pharmacologic thromboprophylaxis is indicated. - Continue enoxaparin 40 mg QDAY SubQ. Diet DIET NPO Except: NO EXCEPTIONS DIET TUBE FEEDING CONTINUOUS Activity Level: Activity as tolerated Weight bearing: No restrictions (WBAT) Consults IP CONSULT TO NUTRITIONAL SERV IP CONSULT TO RESPIRATORY IP CONSULT TO NUTRITIONAL SERV IP CONSULT TO INFECTIOUS DISEASES IP CONSULT TO TRACK SERVICE PERSON IP CONSULT TO SKIN CARE NURSE IP CONSULT TO TRACK SERVICE PERSON Disposition Medical Floor (Inpatient) Pending SNF placement Care Coordination Nursing staff updated with changes to care plan. Code Status Full Code Summary Problem List Bacterial pneumonia (POA: Yes) History of CVA (cerebrovascular accident) (POA: Yes) Paroxysmal tachycardia, unspecified (CMS/HCC) (POA: Yes) Essential (primary) hypertension (POA: Yes) Seizure disorder (CMS/HCC) (POA: Yes) Sepsis without acute organ dysfunction (CMS/HCC) (POA: Yes) Severe protein-calorie malnutrition (CMS/HCC) (POA: Yes) Tachypnea (POA: Yes) Chronic respiratory failure with hypoxia (CMS/HCC) (POA: Yes) Pressure ulcer of right heel, stage 3 (CMS/HCC) (POA: Yes) Dementia, vascular (CMS/HCC) (POA: Yes) Venessa Rosado DO Signed: 10/26/2022 5:02 PM * Suzy Farmer RN - 10/26/2022 11:42 AM CDT Care Coordination Progress Note Anticipated level of care at discharge: Custodial - Skilled Facility Discharge Plan: Discharge Plan: LASHON spoke with Maribell from [facility] [phone]: [facility] (Formerly [facility]) reconsideration Notes updated from respiratory She will have her assistant shift supervisor contact CM when she isavailable CM had spoken with sister Adriane READMISSION RISK SCORE is 27 at 11:42 AM 10/26/2022. Anticipated Discharge Date: 10/29/22 Patient/Family provided with list of resources? Yes Preferred Provider / High Quality Network List given?: Yes Reason for provider choice: Unknown Family Support (Name and Phone): Extended Emergency Contact Information Primary Emergency Contact: Adriane Pearson Mobile Relation: Sister Shop Mechanic needed? No Secondary Emergency Contact: Amarjit Tabor [facility] Relation: Brother Patient is alert & orientated or has capacity for decision making: Yes If No , Legal or Designated Decision Maker: N/A Transportation at Discharge: Ambulance Equipment at Home: Equipment at Home: Facility Equipment List DME patient requires but does not have: DME Provider: Medication affordability concerns: No Follow Up Appointment: Transportation to MD: Auth Number (if required): [place]: DME: Medications: Transportation: Name: Suzy Farmer RN Phone: [phone] * Suzy Farmer RN - 10/26/2022 11:39 AM CDT Care Coordination Progress Note Anticipated level of care at discharge: Custodial - Skilled Facility READMISSION RISK SCORE is 27 at 11:39 AM 10/26/2022. Anticipated Discharge Date: 10/29/22 Patient/Family provided with list of resources? Yes Preferred Provider / High Quality Network List given?: Yes Reason for provider choice: Unknown Family Support (Name and Phone): Extended Emergency Contact Information Primary Emergency Contact: Adriane Pearson Mobile Relation: Sister Shop Mechanic needed? No Secondary Emergency Contact: Amarjit Tabor [facility] Relation: Brother Patient is alert & orientated or has capacity for decision making: Yes If No , Legal or Designated Decision Maker: N/A Transportation at Discharge: Ambulance Equipment at Home: Equipment at Home: Facility Equipment List DME patient requires but does not have: DME Provider: Medication affordability concerns: No Follow Up Appointment: Transportation to MD: Auth Number (if required): NH: DME: Medications: Transportation: Name: Suzy Farmer RN Phone: [phone] * Benny Miranda RCP - 10/26/2022 9:53 AM CDT Patient has been successsfully weaned to room air and continues on 21% via compressed air flowmeterfor humidity. O2 saturation is currently 100%. * Libertad Small RN - 10/26/2022 9:28 AM CDT Spoke with sister Adriane who voiced concerns about being informed her brother was on 10L O2. I visualized this patient and he is receiving humidified air at this time, no additional oxygen needs. I also called respiratory who agreed that the patient is not on oxygen and will be entering a note. Thisshould be considered when deciding on facility placement. * Riky Lara RN - 10/26/2022 7:26 AM CDT Problem: Impaired Gas Exchange Goal: Resp rate/effort will be within specified limits Outcome: Progressing Problem: Ineffective Airway Clearance Goal: Patent airway Outcome: Progressing Problem: Fall Risk Goal: Fall risk and fall related injury risk are minimized (interventions related to the fall risk can be found in the flowsheet documentation) Outcome: Progressing Problem: Nutrient: Inadequate protein-energy intake Goal: Total intake will meet estimated nutrient needs Outcome: Progressing Problem: Oxygenation/Respiratory Function Goal: Patent airway Outcome: Progressing Goal: Respiratory rate/effort will be within specified limits Outcome: Progressing Problem: Care of Tracheostomy Goal: Tracheostomy tube and site will be maintained Outcome: Progressing Problem: Potential for Infection Goal: Insertion site without signs/symptoms of infection Outcome: Progressing Problem: Knowledge Deficit Goal: Patient/Significant other demonstrates understanding of Tracheostomy Outcome: Progressing Problem: Communication/Dysarthria Goal: STG - Patient will tolerate PMV trials Outcome: Progressing Problem: Pain/Discomfort Goal: Patient exhibits reduced pain/discomfort as evidenced by pain scores Outcome: Progressing Goal: Patient uses pharmacological and non-pharmacological pain management strategies. Outcome: Progressing Goal: Patient verbalizes acceptable level of pain relief and ability to engage in desired activity. Outcome: Progressing Problem: Skin Integrity Goal: Skin integrity is maintained or improved Outcome: Progressing Problem: Daily Care Goal: Daily care needs are met Outcome: Progressing * Vito Ceron RN - 10/26/2022 4:38 AM CDT Problem: Impaired Gas Exchange Goal: Resp rate/effort will be within specified limits Outcome: Progressing Problem: Ineffective Airway Clearance Goal: Patent airway Outcome: Progressing Problem: Fall Risk Goal: Fall risk and fall related injury risk are minimized (interventions related to the fall risk can be found in the flowsheet documentation) Outcome: Progressing Problem: Nutrient: Inadequate protein-energy intake Goal: Total intake will meet estimated nutrient needs Outcome: Progressing Problem: Oxygenation/Respiratory Function Goal: Patent airway Outcome: Progressing Goal: Respiratory rate/effort will be within specified limits Outcome: Progressing Problem: Care of Tracheostomy Goal: Tracheostomy tube and site will be maintained Outcome: Progressing Problem: Potential for Infection Goal: Insertion site without signs/symptoms of infection Outcome: Progressing Problem: Knowledge Deficit Goal: Patient/Significant other demonstrates understanding of Tracheostomy Outcome: Progressing Problem: Communication/Dysarthria Goal: STG - Patient will tolerate PMV trials Outcome: Progressing Problem: Pain/Discomfort Goal: Patient exhibits reduced pain/discomfort as evidenced by pain scores Outcome: Progressing Goal: Patient uses pharmacological and non-pharmacological pain management strategies. Outcome: Progressing Goal: Patient verbalizes acceptable level of pain relief and ability to engage in desired activity. Outcome: Progressing Problem: Skin Integrity Goal: Skin integrity is maintained or improved Outcome: Progressing Problem: Daily Care Goal: Daily care needs are met Outcome: Progressing * Carole Shea RN - 10/25/2022 6:33 PM CDT Patient has been resting comfortably. Patient does not seem to be in pain or agitated. Patient is well ventilated and respirations are normal. * Venessa Rosado DO - 10/25/2022 12:35 PM CDT Internal Medicine Progress Note Admission Date: 08/28/2022 Length of Stay: 58 Subjective 24h- Pt denies any pain or respiratory issues. Pt is slow to respond but does indicate answers to interview questions. No acute events overnight. Objective Temp: [98.1 ??F (36.7 ??C)] 98.1 ??F (36.7 ??C) Pulse: [88-100] 100 Resp: [16] 16 BP: (142-146)/(78-92) 142/78 O2 %: [21 %] 21 % Weight change: Intake/Output Summary (Last 24 hours) at 10/25/2022 1235 Last data filed at 10/25/2022 0954 Gross per 24 hour Intake 1867 ml Output 1650 ml Net 217 ml Physical Exam Constitutional: General: He is not in acute distress. Comments: Awake. Interactive. Responds to verbal stimuli. Neck: Trachea: Tracheostomy present. Cardiovascular: Rate and Rhythm: Normal rate and regular rhythm. Heart sounds: Normal heart sounds. No murmur heard. Pulmonary: Effort: Pulmonary effort is normal. Breath sounds: Normal breath sounds. Comments: Supplemental oxygen being administered via trach collar at 10 L/min. Abdominal: General: Bowel sounds are normal. Palpations: Abdomen is soft. Tenderness: There is no abdominal tenderness. Skin: General: Skin is warm and dry. Neurological: Mental Status: He is alert. Laboratory Data Recent Labs Component Name 10/24/2242510/22/2243010/20/22430 WBC 7.2 6.5 6.6 HGB 13.1 12.1 11.9* HCT 39.9 36.9 36.0 PLTCOUNT 248 233 221 MCV 92.6 94.1 92.5 Recent Labs Component Name 10/24/2242510/22/2243010/20/22430 NA 139 140 138 POTASSIUM 3.8 3.8 4.1 CL 103 103 101 CO2 27 25 27 BUN 15 14 21 CREATININE 0.45* 0.52* 0.46* Recent Labs Component Name 10/24/2242510/22/2243010/20/22430 CALCIUM 10.2 9.9 10.5* PHOS 2.6* 3.3 3.2 Assessment and Plan Bi Tabor is a 62 year old male hospitalized with presumed bacteremia (due to Staphylococcus capitis) and noqgu-po-ziinlfr respiratory failure with hypoxia. Hospital course complicated by hospital-acquired bacterial pneumonia/tracheitis due to Pseudomonas aeruginosa and Acinetobacter baummannii.His active/chronic diseases include cerebrovascular dementia, seizure disorder, dysphagia (post-PEG tube placement), CRF with hypoxia (post-tracheostomy tube placement in Jun, 2022), PAD (post-L AKA), and HTN. Pt is stable and waiting for placement. Xrncn-cs-vrvrrak respiratory failure with hypoxia - Resolved Chronic respiratory failure (CRF) with hypoxia Bacterial PNA due to S. capitis- resolved HCAP- resolved Plan: Supplemental O2 via trach collar to maintain SpO2 >= 92%. - Bronchial hygiene. - Continue levalbuterol nebulizer solution 1.25 mg Q 6 hrs INH. - completed a 10-day course of meropenem on 09/19. Hx Cerebrovascular accident (CVA) Plan: Secondary stroke prevention. - Continue atorvastatin 40 mg QDAY ET. Seizure disorder Plan: AED regimen. Continue levetiracetam 2000 mg BID ET. Continue divalproex 500 mg Q 6 hrs ET. Continue lacosamide 200 mg BID ET. Continue clobazam 20 mg BID ET. Essential (primary) hypertension (HTN) - Monitor to restart as indicated Protein-calorie malnutrition Dysphagia Clinical findings consistent with severe protein-calorie malnutrition. Plan: Follow up on nutrition/dietetics recommendations regarding further management of protein-calorie malnutrition. Enteral feedings via PEG tube. Pressure ulcer of right (R) heel, stage 3 Present on admission. Plan: Wound care per wound care consultants. ??? artificial tears Each Eye q8h ??? atorvastatin 40 mg Enteral Tube QDAY ??? chlorhexidine 15 mL Mouth/Throat BID ??? cloBAZam 20 mg Enteral Tube BID ??? divalproex sprinkle 500 mg Enteral Tube q6h ??? enoxaparin 40 mg Subcutaneous QDAY ??? guaiFENesin 10 mL Enteral Tube q6h ??? lacosamide 200 mg Enteral Tube BID ??? levalbuterol 1.25 mg Inhalation q6h ??? levETIRAcetam 2,000 mg Enteral Tube BID ??? scopolamine 1 patch Transdermal q72h And ??? scopolamine patch placement confirmation Transdermal BID ??? senna-docusate 1 tablet Enteral Tube BID ??? acetaminophen ??? dextrose IV for hypoglycemia OR dextrose IV for hypoglycemia ??? glucagon ??? glucose (Diabetic Use) ??? glucose (Diabetic Use) gel ??? glucose chew tab Prophylaxis VTE risk: high. Pharmacologic thromboprophylaxis is indicated. - Continue enoxaparin 40 mg QDAY SubQ. Diet DIET NPO Except: NO EXCEPTIONS DIET TUBE FEEDING CONTINUOUS Activity Level: Activity as tolerated Weight bearing: No restrictions (WBAT) Consults IP CONSULT TO NUTRITIONAL SERV IP CONSULT TO RESPIRATORY IP CONSULT TO NUTRITIONAL SERV IP CONSULT TO INFECTIOUS DISEASES IP CONSULT TO TRACK SERVICE PERSON IP CONSULT TO SKIN CARE NURSE IP CONSULT TO TRACK SERVICE PERSON Disposition Medical Floor (Inpatient) Care Coordination Nursing staff updated with changes to care plan. Code Status Full Code Summary Problem List Bacterial pneumonia (POA: Yes) History of CVA (cerebrovascular accident) (POA: Yes) Paroxysmal tachycardia, unspecified (CMS/HCC) (POA: Yes) Essential (primary) hypertension (POA: Yes) Seizure disorder (CMS/HCC) (POA: Yes) Sepsis without acute organ dysfunction (CMS/HCC) (POA: Yes) Severe protein-calorie malnutrition (CMS/HCC) (POA: Yes) Tachypnea (POA: Yes) Chronic respiratory failure with hypoxia (CMS/HCC) (POA: Yes) Pressure ulcer of right heel, stage 3 (CMS/HCC) (POA: Yes) Dementia, vascular (CMS/HCC) (POA: Yes) Venessa Rosado DO Signed: 10/25/2022 12:35 PM * Suzy Farmer RN - 10/25/2022 11:56 AM CDT Care Coordination Progress Note Anticipated level of care at discharge: Custodial - Skilled Facility Discharge Plan: SNF when there is an accepting facility READMISSION RISK SCORE is 27 at 11:56 AM 10/25/2022. Anticipated Discharge Date: 10/26/22 Patient/Family provided with list of resources? Yes Preferred Provider / High Quality Network List given?: Yes Reason for provider choice: Unknown Family Support (Name and Phone): Extended Emergency Contact Information Primary Emergency Contact: Adriane Pearson Mobile Relation: Sister Shop Mechanic needed? No Secondary Emergency Contact: Amarjit Tabor [facility] Relation: Brother Patient is alert & orientated or has capacity for decision making: Yes If No , Legal or Designated Decision Maker: N/A Transportation at Discharge: Ambulance Equipment at Home: Equipment at Home: Facility Equipment List DME patient requires but does not have: DME Provider: Medication affordability concerns: No Follow Up Appointment: Transportation to MD: Auth Number (if required): NH: DME: Medications: Transportation: Name: Suzy Farmer RN Phone: [phone] * Selina Woods RN - 10/25/2022 12:01 AM CDT Problem: Impaired Gas Exchange Goal: Resp rate/effort will be within specified limits Outcome: Progressing Problem: Oxygenation/Respiratory Function Goal: Patent airway Outcome: Progressing Problem: Daily Care Goal: Daily care needs are met Outcome: Progressing * Ck Mccurdy MD - 10/24/2022 8:37 AM CDT Internal Medicine Progress Note Admission Date: 08/28/2022 Length of Stay: 57 Subjective It is difficult for him to relay subjective concerns due to presence of tracheostomy tube. He is able to articulate that he has a headache. He denies pain. He denies dyspnea. Objective Temp: [98.2 ??F (36.8 ??C)] 98.2 ??F (36.8 ??C) Pulse: [90-112] 112 Resp: [18] 18 BP: (121-130)/(78-89) 121/78 O2 %: [40 %] 40 % Weight change: Intake/Output Summary (Last 24 hours) at 10/24/2022 0837 Last data filed at 10/24/2022 0544 Gross per 24 hour Intake 1395 ml Output 1250 ml Net 145 ml Physical Exam Constitutional: General: He is not in acute distress. Comments: Awake. Interactive. Responds to verbal stimuli. Weight classification: Underweight. Malnourished. Euvolemic. Neck: Trachea: Tracheostomy present. Cardiovascular: Rate and Rhythm: Normal rate and regular rhythm. Heart sounds: Normal heart sounds. No murmur heard. Pulmonary: Effort: Pulmonary effort is normal. Breath sounds: Normal breath sounds. Comments: Supplemental oxygen being administered via trach collar at 10 L/min. Abdominal: General: Bowel sounds are normal. Palpations: Abdomen is soft. Tenderness: There is no abdominal tenderness. Skin: General: Skin is warm and dry. Neurological: Mental Status: He is alert. Laboratory Data Recent Labs Component Name 10/24/22 0426 10/22/22 0431 10/20/22430 WBC 7.2 6.5 6.6 HGB 13.1 12.1 11.9* HCT 39.9 36.9 36.0 PLTCOUNT 248 233 221 MCV 92.6 94.1 92.5 Recent Labs Component Name 10/24/22 0426 10/22/22 0431 10/20/22430 NA 139 140 138 POTASSIUM 3.8 3.8 4.1 CL 103 103 101 CO2 27 25 27 BUN 15 14 21 CREATININE 0.45* 0.52* 0.46* Recent Labs Component Name 10/24/226 10/22/2243010/20/22430 CALCIUM 10.2 9.9 10.5* PHOS 2.6* 3.3 3.2 Assessment and Plan Bi Tabor is a 62 year old male hospitalized with presumed bacteremia (due to Staphylococcus capitis) and tqqft-zc-hwebueb respiratory failure with hypoxia. Hospital course complicated by hospital-acquired bacterial pneumonia/tracheitis due to Pseudomonas aeruginosa and Acinetobacter baummannii.His active/chronic diseases include cerebrovascular dementia, seizure disorder, dysphagia (post-PEG tube placement), CRF with hypoxia (post-tracheostomy tube placement in Jun, 2022), PAD (post-L AKA), and HTN. Vheje-hm-pcppils respiratory failure (A-on-CRF) with hypoxia - Resolved Chronic respiratory failure (CRF) with hypoxia Etiology of A-on-CRF accounted for by bacterial pneumonia. Past 24 hrs: Supplemental O2 has been required to maintain adequate O2 saturation. Plan: Supplemental O2 via trach collar to maintain SpO2 >= 92%. Bronchial hygiene. Expectorant pharmacotherapy. Continue levalbuterol nebulizer solution 1.25 mg Q 6 hrs INH. Hospital-acquired pneumonia (HAP) - Resolved Bacterial pneumonia - Resolved Bacterial tracheitis - Resolved Bacteremia due to S. capitis - Resolved Sepsis - Resolved Clinical and imaging findigns consistent with bacterial pneumonia. Risk factors for infection by MDR bacteria include recent hospitalization and recent stay in long-term care facility. 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 Dpujv-xq-pzfuzdh hypoxic respiratory failure present at time ofdiagnosis consistent with severe sepsis. Past 24 hrs: qSOFA: 0/3; SIRS: 1/4 (tachycardia). Plan: He completed a 10-day course of meropenem on 09/19. Hx Cerebrovascular accident (CVA) Plan: Secondary stroke prevention. - Continue atorvastatin 40 mg QDAY ET. Seizure disorder Plan: AED regimen. Continue levetiracetam 2000 mg BID ET. Continue divalproex 500 mg Q 6 hrs ET. Continue lacosamide 200 mg BID ET. Continue clobazam 20 mg BID ET. Essential (primary) hypertension (HTN) No evidence of new target-organ dysfunction related to HTN. Past 24 hrs: Blood pressure control: fair. Plan: Serial monitoring of blood pressure. Withhold anti-HTN medications in setting of normal blood pressure. Protein-calorie malnutrition Dysphagia Clinical findings consistent with severe protein-calorie malnutrition. Plan: Follow up on nutrition/dietetics recommendations regarding further management of protein-calorie malnutrition. Enteral feedings via PEG tube. Pressure ulcer of right (R) heel, stage 3 Present on admission. Plan: Wound care per wound care consultants. ??? artificial tears Each Eye q8h ??? atorvastatin 40 mg Enteral Tube QDAY ??? chlorhexidine 15 mL Mouth/Throat BID ??? cloBAZam 20 mg Enteral Tube BID ??? divalproex sprinkle 500 mg Enteral Tube q6h ??? enoxaparin 40 mg Subcutaneous QDAY ??? guaiFENesin 10 mL Enteral Tube q6h ??? lacosamide 200 mg Enteral Tube BID ??? levalbuterol 1.25 mg Inhalation q6h ??? levETIRAcetam 2,000 mg Enteral Tube BID ??? scopolamine 1 patch Transdermal q72h And ??? scopolamine patch placement confirmation Transdermal BID ??? senna-docusate 1 tablet Enteral Tube BID ??? acetaminophen ??? dextrose IV for hypoglycemia OR dextrose IV for hypoglycemia ??? glucagon ??? glucose (Diabetic Use) ??? glucose (Diabetic Use) gel ??? glucose chew tab Prophylaxis VTE risk: high. Pharmacologic thromboprophylaxis is indicated. - Continue enoxaparin 40 mg QDAY SubQ. Diet DIET NPO Except: NO EXCEPTIONS DIET TUBE FEEDING CONTINUOUS Activity Level: Activity as tolerated Weight bearing: No restrictions (WBAT) Consults IP CONSULT TO NUTRITIONAL SERV IP CONSULT TO RESPIRATORY IP CONSULT TO NUTRITIONAL SERV IP CONSULT TO INFECTIOUS DISEASES IP CONSULT TO TRACK SERVICE PERSON IP CONSULT TO SKIN CARE NURSE IP CONSULT TO TRACK SERVICE PERSON Disposition Medical Floor (Inpatient) Care Coordination Nursing staff updated with changes to care plan. Code Status Full Code Summary Problem List Bacterial pneumonia (POA: Yes) History of CVA (cerebrovascular accident) (POA: Yes) Paroxysmal tachycardia, unspecified (CMS/HCC) (POA: Yes) Essential (primary) hypertension (POA: Yes) Seizure disorder (CMS/HCC) (POA: Yes) Sepsis without acute organ dysfunction (CMS/HCC) (POA: Yes) Severe protein-calorie malnutrition (CMS/HCC) (POA: Yes) Tachypnea (POA: Yes) Chronic respiratory failure with hypoxia (CMS/HCC) (POA: Yes) Pressure ulcer of right heel, stage 3 (CMS/HCC) (POA: Yes) Dementia, vascular (CMS/HCC) (POA: Yes) Ck Mccurdy MD Hospitalist [employer] [facility] Pager: Signed: 10/24/2022 8:37 AM * Selina Woods RN - 10/24/2022 6:18 AM CDT Problem: Daily Care Goal: Daily care needs are met Outcome: Progressing Problem: Skin Integrity Goal: Skin integrity is maintained or improved Outcome: Progressing Problem: Care of Tracheostomy Goal: Tracheostomy tube and site will be maintained Outcome: Progressing * Ck Mccurdy MD - 10/23/2022 7:32 AM CDT Internal Medicine Progress Note Admission Date: 08/28/2022 Length of Stay: 56 Subjective He is unable to relay subjective concerns due to mental status (at baseline) and presence of tracheostomy tube. He is able to mouth that his name is Bi Tabor. Objective Temp: [97.5 ??F (36.4 ??C)-97.8 ??F (36.6 ??C)] 97.5 ??F (36.4 ??C) Pulse: [75-103] 83 Resp: [16-20] 20 BP: (119-137)/(57-88) 130/88 O2 %: [40 %] 40 % Weight change: Intake/Output Summary (Last 24 hours) at 10/23/2022 0733 Last data filed at 10/23/2022 0526 Gross per 24 hour Intake 1605 ml Output 1100 ml Net 505 ml Physical Exam Constitutional: General: He is not in acute distress. Comments: Awake. Interactive. Responds to verbal stimuli. Weight classification: Underweight. Malnourished. Euvolemic. Cardiovascular: Rate and Rhythm: Normal rate and regular rhythm. Heart sounds: Normal heart sounds. No murmur heard. Pulmonary: Effort: Pulmonary effort is normal. Breath sounds: Normal breath sounds. Comments: Supplemental oxygen being administered via trach collar at 10 L/min. Abdominal: General: Bowel sounds are normal. Palpations: Abdomen is soft. Tenderness: There is no abdominal tenderness. Skin: General: Skin is warm and dry. Neurological: Mental Status: He is alert. Laboratory Data Recent Labs Component Name 10/22/22 04310/20/2243010/18/22 04310/16/22 0729 WBC 6.5 6.6 5.8 9.3 HGB 12.1 11.9* 12.4 13.5 HCT 36.9 36.0 38.0 40.6 PLTCOUNT 233 221 - 161 MCV 94.1 92.5 93.1 93.3 Recent Labs Component Name 10/22/22 0431 10/20/2243010/18/22433 NA 140 138 140 POTASSIUM 3.8 4.1 5.5* CL 103 101 105 CO2 25 27 22 BUN 14 21 16 CREATININE 0.52* 0.46* 0.55* Recent Labs Component Name 10/22/22 0431 10/20/22 04310/18/22 043 CALCIUM 9.9 10.5* 10.1 PHOS 3.3 3.2 3.2 Assessment and Plan Bi Tabor is a 62 year old male hospitalized with presumed bacteremia (due to Staphylococcus capitis) and jvkto-wb-hpwrwee respiratory failure with hypoxia. Hospital course complicated by hospital-acquired bacterial pneumonia/tracheitis due to Pseudomonas aeruginosa and Acinetobacter baummannii.His active/chronic diseases include cerebrovascular dementia, seizure disorder, dysphagia (post-PEG tube placement), CRF with hypoxia (post-tracheostomy tube placement in Jun, 2022), PAD (post-L AKA), and HTN. Tledl-hx-nvnmpiv respiratory failure (A-on-CRF) with hypoxia - Resolved Chronic respiratory failure (CRF) with hypoxia Etiology of A-on-CRF accounted for by bacterial pneumonia. Past 24 hrs: Supplemental O2 has been required to maintain adequate O2 saturation. Plan: Supplemental O2 via trach collar to maintain SpO2 >= 92%. Bronchial hygiene. Expectorant pharmacotherapy. Continue levalbuterol nebulizer solution 1.25 mg Q 6 hrs INH. Hospital-acquired pneumonia (HAP) - Resolved Bacterial pneumonia - Resolved Bacterial tracheitis - Resolved Bacteremia due to S. capitis - Resolved Sepsis - Resolved Clinical and imaging findigns consistent with bacterial pneumonia. Risk factors for infection by MDR bacteria include recent hospitalization and recent stay in long-term care facility. 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 Ciwyj-tb-jspryev hypoxic respiratory failure present at time ofdiagnosis consistent with severe sepsis. Past 24 hrs: qSOFA: 0/3; SIRS: 1/4 (tachycardia). Plan: He completed a 10-day course of meropenem on 09/19. Hx Cerebrovascular accident (CVA) Plan: Secondary stroke prevention. - Continue atorvastatin 40 mg QDAY ET. Seizure disorder Plan: AED regimen. Continue levetiracetam 2000 mg BID ET. Continue divalproex 500 mg Q 6 hrs ET. Continue lacosamide 200 mg BID ET. Continue clobazam 20 mg BID ET. Essential (primary) hypertension (HTN) No evidence of new target-organ dysfunction related to HTN. Past 24 hrs: Blood pressure control: fair. Plan: Serial monitoring of blood pressure. Withhold anti-HTN medications in setting of normal blood pressure. Protein-calorie malnutrition Dysphagia Clinical findings consistent with severe protein-calorie malnutrition. Plan: Follow up on nutrition/dietetics recommendations regarding further management of protein-calorie malnutrition. Enteral feedings via PEG tube. Pressure ulcer of right (R) heel, stage 3 Present on admission. Plan: Wound care per wound care consultants. ??? artificial tears Each Eye q8h ??? atorvastatin 40 mg Enteral Tube QDAY ??? chlorhexidine 15 mL Mouth/Throat BID ??? cloBAZam 20 mg Enteral Tube BID ??? divalproex sprinkle 500 mg Enteral Tube q6h ??? enoxaparin 40 mg Subcutaneous QDAY ??? guaiFENesin 10 mL Enteral Tube q6h ??? lacosamide 200 mg Enteral Tube BID ??? levalbuterol 1.25 mg Inhalation q6h ??? levETIRAcetam 2,000 mg Enteral Tube BID ??? scopolamine 1 patch Transdermal q72h And ??? scopolamine patch placement confirmation Transdermal BID ??? senna-docusate 1 tablet Enteral Tube BID ??? acetaminophen ??? dextrose IV for hypoglycemia OR dextrose IV for hypoglycemia ??? glucagon ??? glucose (Diabetic Use) ??? glucose (Diabetic Use) gel ??? glucose chew tab Prophylaxis VTE risk: high. Pharmacologic thromboprophylaxis is indicated. - Continue enoxaparin 40 mg QDAY SubQ. Diet DIET NPO Except: NO EXCEPTIONS DIET TUBE FEEDING CONTINUOUS Activity Level: Activity as tolerated Weight bearing: No restrictions (WBAT) Consults IP CONSULT TO NUTRITIONAL SERV IP CONSULT TO RESPIRATORY IP CONSULT TO NUTRITIONAL SERV IP CONSULT TO INFECTIOUS DISEASES IP CONSULT TO TRACK SERVICE PERSON IP CONSULT TO SKIN CARE NURSE IP CONSULT TO TRACK SERVICE PERSON Disposition Medical Floor (Inpatient) Care Coordination Nursing staff updated with changes to care plan. Updates to disposition plan discussed with social work and case management. Code Status Full Code Summary Problem List Bacterial pneumonia (POA: Yes) History of CVA (cerebrovascular accident) (POA: Yes) Paroxysmal tachycardia, unspecified (CMS/HCC) (POA: Yes) Essential (primary) hypertension (POA: Yes) Seizure disorder (CMS/HCC) (POA: Yes) Sepsis without acute organ dysfunction (CMS/HCC) (POA: Yes) Severe protein-calorie malnutrition (CMS/HCC) (POA: Yes) Tachypnea (POA: Yes) Chronic respiratory failure with hypoxia (CMS/HCC) (POA: Yes) Pressure ulcer of right heel, stage 3 (CMS/HCC) (POA: Yes) Dementia, vascular (CMS/HCC) (POA: Yes) Ck Mccurdy MD Hospitalist [facility] [facility] Pager: Signed: 10/23/2022 7:33 AM * Ana Castro, MINH/NOLAN - 10/22/2022 3:38 PM CDT Nutrition Re-Assessment Brief Synopsis: Patient is diagnosed with severe malnutrition; Specific criteria can be found in assessment below Nutrition Plan: NPO + TF Tube Feeding Recommendations: Continuous: Nepro at 60 ml/hr. Provides 2592 kcal, 117 g protein, 232 g carbohydrate, 1047 ml free water. +250 ml q4 hrs free water flush or per MD if not on additional fluids Recommendations to Physician: See TF recs above Monitor electrolytes Code for severe malnutrition Comments: Pt scheduled for reassessment. Pt receiving TF of Nepro at goal via PEG. 0mL gastric output reported today; 5mL residuals reported 10/20. +BM x2 over 24hrs per I/Os. 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 Diet order accuracy Current diet order: NPO Current tube feeding order: Nepro at 60mL/hr Nutrition recommendation: alter/change nutrition order P.O.Intake for the past 48 hrs:No data recorded Supplement(s) Consumed- Last 48 hours None Food Allergies: No known food allergies GI Concerns: None Chewing/Swallowing: Dysphagia Pain affecting intake: No Admission weight: Weight: 63.5 kg (140 lb) (08/28/22 1101) Recent Weights/Methods 09/21/2022 0400 09/24/2022 0400 09/26/2022 2112 10/02/2022 0400 10/05/2022 0445 10/05/2022 0506 10/11/2022 0400 10/12/2022 0400 Weight: 63.1 kg (139 lb 3.2 oz) 61.5 kg (135 lb 8 oz) 61.5 kg (135 lb 9.6 oz) 60.8 kg (134 lb) -- 54 kg (119 lb) 54.4 kg (120 lb) 54.9 kg (121 lb) Weight Method (Utilize Scales): -- -- -- Bedscale -- Bedscale Bedscale Bedscale Wt Comments: New wt ordered 10/20 - no new wt recorded Height: 182.9 cm (6' 0.01 ) IBW/lb (Calculated) Male: [id number] , Laboratory values reviewed. Recent Labs Component Name 10/22/22 0431 10/20/22 0431 10/18/22 0434 10/12/22 0716 10/09/22 1204 08/30/22 0039 08/28/22 2224 08/28/22 1251 BUN 14 21 16 - 14 - 11 12 CREATININE 0.52* 0.46* 0.55* - 0.39* - 0.50* 0.51* NA 140 138 140 - 140 - 142 139 POTASSIUM 3.8 4.1 5.5* - 4.0 - 3.9 4.5 CL 103 101 105 - 108* - 111* 103 CO2 25 27 22 - 24 - 24 27 GLUCOSE 103 101 118* - 115 - 86 100 CALCIUM 9.9 10.5* 10.1 - 9.8 - 8.8 9.8 PROT - - - - 6.9 - 6.0 7.5 ALB - - - - 3.0* - 2.0* 2.5* TBILI - - - - 0.1* - 0.6 0.5 ALKPHOS - - - - 83 - 67 88 ALT - - - - 10 - 5 6 AST - - - - 15 - 13 14 ANIONGAP 16 14 19* - 12 - 11 14 BCR 27* 46* 29* - 36* - 22 24* OSMOLALITY 291 289 292 - 291 - 293 288 AGRATIO - - - - 0.8* - 0.5* 0.5* EGFR >90 >90 >90 - >90 - >90 >90 - = values in this interval not displayed. Medications noted. Current Facility-Administered Medications Medication ??? acetaminophen (Tylenol) tablet 650 mg ??? artificial tears ophthalmic ointment ??? atorvastatin (Lipitor) tablet 40 mg ??? chlorhexidine (Peridex) 0.12 % oral solution 15 mL ??? cloBAZam (Onfi) tablet 20 mg ??? dextrose 10 % IV bolus Or ??? dextrose 10 % IV bolus ??? divalproex sprinkle (Depakote Sprinkle) capsule 500 mg ??? enoxaparin (Lovenox) injection 40 mg ??? glucagon (Glucagen) injection 1 mg ??? glucose (Diabetic Use) (Dex4 Glucose) oral liquid ??? glucose (Diabetic Use) oral gel ??? glucose chew tablet 4 tablet ??? guaiFENesin (Robitussin) solution 10 mL ??? lacosamide (Vimpat) tablet 200 mg ??? levalbuterol (Xopenex) nebulizer solution 1.25 mg ??? levETIRAcetam (Keppra) tablet 2,000 mg ??? scopolamine (Transderm-Scop) 1 patch And ??? scopolamine patch placement confirmation ??? senna-docusate (Senokot-S) tablet 1 tablet Skin/Wound: WDL Estimated Energy Needs: KCAL: 9310-2064 (35-45kcal/kg (ABW)) Protein (g): 95-125g (20% of estimated kcal needs) Fluid (ml):1 ml/kcal Needs based on: Kcal/kg- (Comment) (ABW 54.9kg) Recommended Access Route: TF Malnutrition Etiology: Malnutrition in the context of: chronic disease, Malnutrition Severity: Severe BMI: Body mass index is 16.41 kg/m??. GI Concerns: None Nutrition Focused Physical Assessment: Loss of Subcutaneous Fat Orbital: Severe Buccal: Severe Tricep: Severe Muscle Loss Temples (Temporalis Muscle): Severe Clavicles (Pectoralis & Deltoids): Severe Shoulders (Deltoids): Severe Nutrition Care Process (2) Nutrition Diagnostic Statement (2): Malnutrition related to:: inadequate protein-energy intake as evidenced by:: unintentional weight loss;BMI less than 19;loss of subcutaneous fat;loss of muscle mass Nutrition Diagnostic Statement Progress: New diagnostic statement established Nutrition Intervention: Enteral nutrition: Monitoring: TF, BM, labs, meds, weight Evaluation: Nutrition Goal: Total intake will meet estimated nutrient needs Nutrition Goal Timeframe: Throughout stay Nutrition Goal Progress: Continue with current goal [id number] * Suzy Farmer RN - 10/22/2022 2:32 PM CDT Care Coordination Progress Note Anticipated level of care at discharge: Custodial - Skilled Facility Discharge Plan: SNF when there is an accepting facility. CM received call from Maribell with [facility]. They are unable to accommodate pt at this time due to his new oxygen increase. Charge Kristi called Maribell to update report and they are still unable to accept him. They will send a referral to [facility] ( they declined in past). CM has informed ambulance team and pt sister Adriane. CM updated Janusz with new determination READMISSION RISK SCORE is 27 at 2:32 PM 10/22/2022. Anticipated Discharge Date: 10/26/22 Patient/Family provided with list of resources? Yes Preferred Provider / High Quality Network List given?: Yes Reason for provider choice: Pt. choice - previous provider Family Support (Name and Phone): Extended Emergency Contact Information Primary Emergency Contact: Adriane Pearson Mobile Relation: Sister Shop Mechanic needed? No Secondary Emergency Contact: Amarjit Tabor [facility] Relation: Brother Transportation at Discharge: Ambulance Equipment at Home: Equipment at Home: Facility Equipment List DME patient requires but does not have: DME Provider: Medication affordability concerns: No Follow Up Appointment: Transportation to MD: Auth Number (if required): [place]: DME: Medications: Transportation: Name: Suzy Farmer RN Phone: [phone] * Ck Mccurdy MD - 10/22/2022 2:30 PM CDT Internal Medicine Progress Note Admission Date: 08/28/2022 Length of Stay: 55 Subjective He is unable to relay subjective concerns due to mental status (at baseline) and presence of tracheostomy tube. He shakes his head when asked if he had any concerns or if anything was bothering him. Objective Temp: [97.3 ??F (36.3 ??C)-97.7 ??F (36.5 ??C)] 97.7 ??F (36.5 ??C) Pulse: [75-103] 75 Resp: [16-18] 16 BP: (118-122)/(71-84) 122/84 O2 %: [40 %] 40 % Weight change: Intake/Output Summary (Last 24 hours) at 10/22/2022 1430 Last data filed at 10/22/2022 1024 Gross per 24 hour Intake -- Output 0 ml Net 0 ml Physical Exam Constitutional: General: He is not in acute distress. Comments: Awake. Lying supine in bed. Interactive. Responds to verbal stimuli. Weight classification: Underweight. Malnourished. Euvolemic. Cardiovascular: Rate and Rhythm: Normal rate and regular rhythm. Heart sounds: Normal heart sounds. No murmur heard. Pulmonary: Effort: Pulmonary effort is normal. Breath sounds: Normal breath sounds. Comments: Supplemental oxygen being administered via trach collar at 10 L/min. Abdominal: General: Bowel sounds are normal. Palpations: Abdomen is soft. Tenderness: There is no abdominal tenderness. Skin: General: Skin is warm and dry. Neurological: Mental Status: He is alert. Laboratory Data Recent Labs Component Name 10/22/2243010/20/2243010/18/22 04310/16/22 0729 WBC 6.5 6.6 5.8 9.3 HGB 12.1 11.9* 12.4 13.5 HCT 36.9 36.0 38.0 40.6 PLTCOUNT 233 221 - 161 MCV 94.1 92.5 93.1 93.3 Recent Labs Component Name 10/22/22 04310/20/22 04310/18/22 043 NA 140 138 140 POTASSIUM 3.8 4.1 5.5* CL 103 101 105 CO2 25 27 22 BUN 14 21 16 CREATININE 0.52* 0.46* 0.55* Recent Labs Component Name 10/22/22 04310/20/2243010/18/22 043 CALCIUM 9.9 10.5* 10.1 PHOS 3.3 3.2 3.2 Assessment and Plan Bi Tabor is a 62 year old male hospitalized with presumed bacteremia (due to Staphylococcus capitis) and ronuj-zo-moqxmow respiratory failure with hypoxia. Hospital course complicated by hospital-acquired bacterial pneumonia/tracheitis due to Pseudomonas aeruginosa and Acinetobacter baummannii.His active/chronic diseases include cerebrovascular dementia, seizure disorder, dysphagia (post-PEG tube placement), CRF with hypoxia (post-tracheostomy tube placement in Jun, 2022), PAD (post-L AKA), and HTN. Wvrvt-uj-wodubfe respiratory failure (A-on-CRF) with hypoxia - Resolved Chronic respiratory failure (CRF) with hypoxia Etiology of A-on-CRF accounted for by bacterial pneumonia. Past 24 hrs: Supplemental O2 has been required to maintain adequate O2 saturation. Plan: Supplemental O2 via trach collar to maintain SpO2 >= 92%. Bronchial hygiene. Expectorant pharmacotherapy. Continue levalbuterol nebulizer solution 1.25 mg Q 6 hrs INH. Hospital-acquired pneumonia (HAP) - Resolved Bacterial pneumonia - Resolved Bacterial tracheitis - Resolved Bacteremia due to S. capitis - Resolved Sepsis - Resolved Clinical and imaging findigns consistent with bacterial pneumonia. Risk factors for infection by MDR bacteria include recent hospitalization and recent stay in long-term care facility. 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 Esvgy-su-rkvbxfe hypoxic respiratory failure present at time ofdiagnosis consistent with severe sepsis. Past 24 hrs: qSOFA: 0/3; SIRS: 1/4 (tachycardia). Plan: He completed a 10-day course of meropenem on 09/19. Hx Cerebrovascular accident (CVA) Plan: Secondary stroke prevention. - Continue atorvastatin 40 mg QDAY ET. Seizure disorder Plan: AED regimen. Continue levetiracetam 2000 mg BID ET. Continue divalproex 500 mg Q 6 hrs ET. Continue lacosamide 200 mg BID ET. Continue clobazam 20 mg BID ET. Essential (primary) hypertension (HTN) No evidence of new target-organ dysfunction related to HTN. Past 24 hrs: Blood pressure control: fair. Plan: Serial monitoring of blood pressure. Withhold anti-HTN medications in setting of normal blood pressure. Protein-calorie malnutrition Dysphagia Clinical findings consistent with severe protein-calorie malnutrition. Plan: Follow up on nutrition/dietetics recommendations regarding further management of protein-calorie malnutrition. Enteral feedings via PEG tube. Pressure ulcer of right (R) heel, stage 3 Present on admission. Plan: Wound care per wound care consultants. ??? artificial tears Each Eye q8h ??? atorvastatin 40 mg Enteral Tube QDAY ??? chlorhexidine 15 mL Mouth/Throat BID ??? cloBAZam 20 mg Enteral Tube BID ??? divalproex sprinkle 500 mg Enteral Tube q6h ??? enoxaparin 40 mg Subcutaneous QDAY ??? guaiFENesin 10 mL Enteral Tube q6h ??? lacosamide 200 mg Enteral Tube BID ??? levalbuterol 1.25 mg Inhalation q6h ??? levETIRAcetam 2,000 mg Enteral Tube BID ??? scopolamine 1 patch Transdermal q72h And ??? scopolamine patch placement confirmation Transdermal BID ??? senna-docusate 1 tablet Enteral Tube BID ??? acetaminophen ??? dextrose IV for hypoglycemia OR dextrose IV for hypoglycemia ??? glucagon ??? glucose (Diabetic Use) ??? glucose (Diabetic Use) gel ??? glucose chew tab Prophylaxis VTE risk: high. Pharmacologic thromboprophylaxis is indicated. - Continue enoxaparin 40 mg QDAY SubQ. Diet DIET NPO Except: NO EXCEPTIONS DIET TUBE FEEDING CONTINUOUS Activity Level: Activity as tolerated Weight bearing: No restrictions (WBAT) Consults IP CONSULT TO NUTRITIONAL SERV IP CONSULT TO RESPIRATORY IP CONSULT TO NUTRITIONAL SERV IP CONSULT TO INFECTIOUS DISEASES IP CONSULT TO TRACK SERVICE PERSON IP CONSULT TO SKIN CARE NURSE IP CONSULT TO TRACK SERVICE PERSON Disposition Medical Floor (Inpatient) Care Coordination Nursing staff updated with changes to care plan. Updates to disposition plan discussed with social work and case management. Code Status Full Code Summary Problem List Bacterial pneumonia (POA: Yes) History of CVA (cerebrovascular accident) (POA: Yes) Paroxysmal tachycardia, unspecified (CMS/HCC) (POA: Yes) Essential (primary) hypertension (POA: Yes) Seizure disorder (CMS/HCC) (POA: Yes) Sepsis without acute organ dysfunction (CMS/HCC) (POA: Yes) Severe protein-calorie malnutrition (CMS/HCC) (POA: Yes) Tachypnea (POA: Yes) Chronic respiratory failure with hypoxia (CMS/HCC) (POA: Yes) Pressure ulcer of right heel, stage 3 (CMS/HCC) (POA: Yes) Dementia, vascular (CMS/HCC) (POA: Yes) Ck Mccurdy MD Hospitalist [employer] [facility] Pager: Signed: 10/22/2022 2:30 PM * Gaurav Juarez, WEB MARKETING SPECIALIST - 10/22/2022 11:57 AM CDT Facility Transfer Note Level of Care: Actual level of care at discharge: Custodial - Skilled Facility Facility Name: (include name of person confirming admission): Actual discharge provider: [facility] [place] Made Aware of Special Needs (if applicable): Yes RN Call Report to:[phone] Fax D/C Orders to:[phone] Transportation (company and number): [facility] [id number] Certificate of Medical Necessity rationale: Yes Date/time of transfer: 10/22 @ 2:00PM Accepting MD and contact #: Completed and Signed [id number] (if applicable): Family/Other Notified of Transfer (name/phone): Sister notified Authorization Skilled Care: Authorization for Transportation: Verified Qualifying Stay(Skilled Only): YES Comments: Name/Phone number: CLARITA Ram [phone] * Suzy Farmer RN - 10/22/2022 9:58 AM CDT Care Coordination Progress Note Anticipated level of care at discharge: Custodial - Medicaid Discharge Plan: SNF. [facility] arranged at 1400 10/22 [place] sister notified of ambulance time change. Please consult CM for any other discharge needs READMISSION RISK SCORE is 27 at 9:59 AM 10/22/2022. Anticipated Discharge Date: 10/26/22 Patient/Family provided with list of resources? Yes Preferred Provider / High Quality Network List given?: Yes Reason for provider choice: Pt. choice - previous provider Family Support (Name and Phone): Extended Emergency Contact Information Primary Emergency Contact: Adriane Pearson Mobile Relation: Sister Shop Mechanic needed? No Secondary Emergency Contact: Amarjit Tabor [facility] Relation: Brother Patient is alert & orientated or has capacity for decision making: Yes If No , Legal or Designated Decision Maker: N/A Transportation at Discharge: Ambulance Equipment at Home: Equipment at Home: Facility Equipment List DME patient requires but does not have: DME Provider: Medication affordability concerns: No Follow Up Appointment: Transportation to MD: Auth Number (if required): [place]: DME: Medications: Transportation: Name: Suzy Farmer RN Phone: [phone] * Carole Shea RN - 10/22/2022 7:48 AM CDT Patient calmly in bed watching TV. Suctioned patient and got a good amount of mucous out. Will continue to monitor patient VS and suction as needed * Destiney Cruz RN - 10/22/2022 12:19 AM CDT Problem: Impaired Gas Exchange Goal: Resp rate/effort will be within specified limits Outcome: Progressing Problem: Ineffective Airway Clearance Goal: Patent airway Outcome: Progressing Problem: Fall Risk Goal: Fall risk and fall related injury risk are minimized (interventions related to the fall risk can be found in the flowsheet documentation) Outcome: Progressing Problem: Nutrient: Inadequate protein-energy intake Goal: Total intake will meet estimated nutrient needs Outcome: Progressing Problem: Oxygenation/Respiratory Function Goal: Patent airway Outcome: Progressing Goal: Respiratory rate/effort will be within specified limits Outcome: Progressing Problem: Care of Tracheostomy Goal: Tracheostomy tube and site will be maintained Outcome: Progressing Problem: Potential for Infection Goal: Insertion site without signs/symptoms of infection Outcome: Progressing Problem: Knowledge Deficit Goal: Patient/Significant other demonstrates understanding of Tracheostomy Outcome: Progressing Problem: Communication/Dysarthria Goal: STG - Patient will tolerate PMV trials Outcome: Progressing Problem: Pain/Discomfort Goal: Patient exhibits reduced pain/discomfort as evidenced by pain scores Outcome: Progressing Goal: Patient uses pharmacological and non-pharmacological pain management strategies. Outcome: Progressing Goal: Patient verbalizes acceptable level of pain relief and ability to engage in desired activity. Outcome: Progressing Problem: Skin Integrity Goal: Skin integrity is maintained or improved Outcome: Progressing Problem: Daily Care Goal: Daily care needs are met Outcome: Progressing * Vicky Hunt, ALFRED - 10/21/2022 5:35 PM CDT Ambulance arranged with [facility] through dispatch [phone]. For 2pm 10/22. I have alerted ASHWIN Juaerz and LASHON Farmer that pt requires approval through Medicaid [place] for transport as well. Team will render auth in am. * Suzy Farmer RN - 10/21/2022 2:43 PM CDT Care Coordination Progress Note Anticipated level of care at discharge: Custodial - Medicaid Discharge Plan CM [phone]: [facility] has accepted. Pt is on 8 liters on trach collar. Ambulance arranged. Updated sister. She is agreeable with discharge Adriane is aware that [place] check will be turned over to the facility - $30.00 Pt will need a negative COVID screen. Notified Sam SIMON. READMISSION RISK SCORE is 27 at 2:43 PM 10/21/2022. Anticipated Discharge Date: 10/26/22 Patient/Family provided with list of resources? Yes Preferred Provider / High Quality Network List given?: Yes Reason for provider choice: Pt. choice - previous provider Family Support (Name and Phone): Extended Emergency Contact Information Primary Emergency Contact: Adriane Pearson Mobile Relation: Sister Shop Mechanic needed? No Secondary Emergency Contact: Amarjit Tabor [facility] Relation: Brother Patient is alert & orientated or has capacity for decision making: Yes If No , Legal or Designated Decision Maker: N/A Transportation at Discharge: Ambulance Equipment at Home: Equipment at Home: Facility Equipment List DME patient requires but does not have: DME Provider: Medication affordability concerns: No Follow Up Appointment: Transportation to MD: Auth Number (if required): [place]: DME: Medications: Transportation: Name: Suzy Farmer RN Phone: [phone] * Suzy Farmer RN - 10/21/2022 10:13 AM CDT Care Coordination Progress Note Anticipated level of care at discharge: Custodial - Medicaid Discharge Plan: No accepting SNF at this time. Another referral sent to [facility] at this time. Discussed plan with pt sister READMISSION RISK SCORE is 27 at 10:13 AM 10/21/2022. Anticipated Discharge Date: 10/22/22 Patient/Family provided with list of resources? Yes Preferred Provider / High Quality Network List given?: Yes Reason for provider choice: Pt. choice - previous provider Family Support (Name and Phone): Extended Emergency Contact Information Primary Emergency Contact: Adriane Pearson Mobile Relation: Sister Shop Mechanic needed? No Secondary Emergency Contact: Amarjit Tabor [facility] Relation: Brother Patient is alert & orientated or has capacity for decision making: Yes If No , Legal or Designated Decision Maker: N/A Transportation at Discharge: Ambulance Equipment at Home: Equipment at Home: Facility Equipment List DME patient requires but does not have: DME Provider: Medication affordability concerns: No Follow Up Appointment: Transportation to MD: Auth Number (if required): [place]: DME: Medications: Transportation: Name: Suzy Farmer RN Phone: [phone] * Ck Mccurdy MD - 10/21/2022 8:15 AM CDT Internal Medicine Progress Note Admission Date: 08/28/2022 Length of Stay: 54 Subjective He is unable to relay subjective concerns due to mental status (at baseline). He motions towards his tracheostomy when asked if anything is bothering him. Objective Temp: [97.3 ??F (36.3 ??C)-98.8 ??F (37.1 ??C)] 97.3 ??F (36.3 ??C) Pulse: [86-108] 97 Resp: [16-18] 16 BP: (125-135)/(77-83) 135/79 O2 %: [40 %] 40 % Weight change: Intake/Output Summary (Last 24 hours) at 10/21/2022 0815 Last data filed at 10/21/2022 0020 Gross per 24 hour Intake -- Output 450 ml Net -450 ml Physical Exam Constitutional: General: He is not in acute distress. Comments: Awake. Interactive. Responds to verbal stimuli. Weight classification: Underweight. Malnourished. Euvolemic. Cardiovascular: Rate and Rhythm: Normal rate and regular rhythm. Heart sounds: Normal heart sounds. No murmur heard. Pulmonary: Effort: Pulmonary effort is normal. Breath sounds: Normal breath sounds. Comments: Supplemental oxygen being administered via trach collar at 10 L/min. Abdominal: General: Bowel sounds are normal. Palpations: Abdomen is soft. Tenderness: There is no abdominal tenderness. Skin: General: Skin is warm and dry. Neurological: Mental Status: He is alert. Laboratory Data Recent Labs Component Name 10/20/22 04310/18/22 04310/16/22 0729 10/14/22 0553 WBC 6.6 5.8 9.3 7.0 HGB 11.9* 12.4 13.5 12.7 HCT 36.0 38.0 40.6 38.1 PLTCOUNT 221 - 161 156 MCV 92.5 93.1 93.3 93.6 Recent Labs Component Name 10/20/22 0431 10/18/22 04310/16/22 0729 NA 138 140 139 POTASSIUM 4.1 5.5* 4.2 CL 101 105 104 CO2 27 22 23 BUN 21 16 15 CREATININE 0.46* 0.55* 0.44* Recent Labs Component Name 10/20/22 0431 10/18/22 0434 10/16/22 0729 CALCIUM 10.5* 10.1 10.4* PHOS 3.2 3.2 2.8 Assessment and Plan Bi Tabor is a 62 year old male hospitalized with presumed bacteremia (due to Staphylococcus capitis) and dlihe-jx-lhrjdlw respiratory failure with hypoxia. Hospital course complicated by hospital-acquired bacterial pneumonia/tracheitis due to Pseudomonas aeruginosa and Acinetobacter baummannii.His active/chronic diseases include cerebrovascular dementia, seizure disorder, dysphagia (post-PEG tube placement), CRF with hypoxia (post-tracheostomy tube placement in Jun, 2022), PAD (post-L AKA), and HTN. Lfyfc-bh-xdjvdia respiratory failure (A-on-CRF) with hypoxia - Resolved Chronic respiratory failure (CRF) with hypoxia Etiology of A-on-CRF accounted for by bacterial pneumonia. Past 24 hrs: Supplemental O2 has been required to maintain adequate O2 saturation. Plan: Supplemental O2 via trach collar to maintain SpO2 >= 92%. Bronchial hygiene. Expectorant pharmacotherapy. Continue levalbuterol nebulizer solution 1.25 mg Q 6 hrs INH. Hospital-acquired pneumonia (HAP) - Resolved Bacterial pneumonia - Resolved Bacterial tracheitis - Resolved Bacteremia due to S. capitis - Resolved Sepsis - Resolved Clinical and imaging findigns consistent with bacterial pneumonia. Risk factors for infection by MDR bacteria include recent hospitalization and recent stay in long-term care facility. 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 Ncikk-vr-mlasbzg hypoxic respiratory failure present at time ofdiagnosis consistent with severe sepsis. Past 24 hrs: qSOFA: 0/3; SIRS: 1/4 (tachycardia). Plan: He completed a 10-day course of meropenem on 09/19. Hx Cerebrovascular accident (CVA) Plan: Secondary stroke prevention. - Continue atorvastatin 40 mg QDAY ET. Seizure disorder Plan: AED regimen. Continue levetiracetam 2000 mg BID ET. Continue divalproex 500 mg Q 6 hrs ET. Continue lacosamide 200 mg BID ET. Continue clobazam 20 mg BID ET. Essential (primary) hypertension (HTN) No evidence of new target-organ dysfunction related to HTN. Past 24 hrs: Blood pressure control: fair. Plan: Serial monitoring of blood pressure. Withhold anti-HTN medications in setting of normal blood pressure. Protein-calorie malnutrition Dysphagia Clinical findings consistent with severe protein-calorie malnutrition. Plan: Follow up on nutrition/dietetics recommendations regarding further management of protein-calorie malnutrition. Enteral feedings via PEG tube. Pressure ulcer of right (R) heel, stage 3 Present on admission. Plan: Wound care per wound care consultants. ??? artificial tears Each Eye q8h ??? atorvastatin 40 mg Enteral Tube QDAY ??? chlorhexidine 15 mL Mouth/Throat BID ??? cloBAZam 20 mg Enteral Tube BID ??? divalproex sprinkle 500 mg Enteral Tube q6h ??? enoxaparin 40 mg Subcutaneous QDAY ??? guaiFENesin 10 mL Enteral Tube q6h ??? lacosamide 200 mg Enteral Tube BID ??? levalbuterol 1.25 mg Inhalation q6h ??? levETIRAcetam 2,000 mg Enteral Tube BID ??? scopolamine 1 patch Transdermal q72h And ??? scopolamine patch placement confirmation Transdermal BID ??? senna-docusate 1 tablet Enteral Tube BID ??? acetaminophen ??? dextrose IV for hypoglycemia OR dextrose IV for hypoglycemia ??? glucagon ??? glucose (Diabetic Use) ??? glucose (Diabetic Use) gel ??? glucose chew tab Prophylaxis VTE risk: high. Pharmacologic thromboprophylaxis is indicated. - Continue enoxaparin 40 mg QDAY SubQ. Diet DIET NPO Except: NO EXCEPTIONS DIET TUBE FEEDING CONTINUOUS Activity Level: Activity as tolerated Weight bearing: No restrictions (WBAT) Consults IP CONSULT TO NUTRITIONAL SERV IP CONSULT TO RESPIRATORY IP CONSULT TO NUTRITIONAL SERV IP CONSULT TO INFECTIOUS DISEASES IP CONSULT TO TRACK SERVICE PERSON IP CONSULT TO SKIN CARE NURSE IP CONSULT TO TRACK SERVICE PERSON Disposition Medical Floor (Inpatient) Care Coordination Nursing staff updated with changes to care plan. Updates to disposition plan discussed with social work and case management. Code Status Full Code Summary Problem List Bacterial pneumonia (POA: Yes) History of CVA (cerebrovascular accident) (POA: Yes) Paroxysmal tachycardia, unspecified (CMS/HCC) (POA: Yes) Essential (primary) hypertension (POA: Yes) Seizure disorder (CMS/HCC) (POA: Yes) Sepsis without acute organ dysfunction (CMS/HCC) (POA: Yes) Severe protein-calorie malnutrition (CMS/HCC) (POA: Yes) Tachypnea (POA: Yes) Chronic respiratory failure with hypoxia (CMS/HCC) (POA: Yes) Pressure ulcer of right heel, stage 3 (CMS/HCC) (POA: Yes) Dementia, vascular (CMS/HCC) (POA: Yes) Ck Mccurdy MD Hospitalist [employer] [facility] Pager: Signed: 10/21/2022 8:15 AM * Carole Shea RN - 10/21/2022 7:40 AM CDT Patient sleeping comfortably in bed. Will suction patient adequately and keep airway clear. Will attempt to keep patient heart rate within normal rates as well as his saturation rate. * Riky Lara RN - 10/20/2022 11:40 AM CDT Problem: Impaired Gas Exchange Goal: Resp rate/effort will be within specified limits Outcome: Progressing Problem: Ineffective Airway Clearance Goal: Patent airway Outcome: Progressing Problem: Fall Risk Goal: Fall risk and fall related injury risk are minimized (interventions related to the fall risk can be found in the flowsheet documentation) Outcome: Progressing Problem: Nutrient: Inadequate protein-energy intake Goal: Total intake will meet estimated nutrient needs Outcome: Progressing Problem: Oxygenation/Respiratory Function Goal: Patent airway Outcome: Progressing Goal: Respiratory rate/effort will be within specified limits Outcome: Progressing Problem: Care of Tracheostomy Goal: Tracheostomy tube and site will be maintained Outcome: Progressing Problem: Potential for Infection Goal: Insertion site without signs/symptoms of infection Outcome: Progressing Problem: Knowledge Deficit Goal: Patient/Significant other demonstrates understanding of Tracheostomy Outcome: Progressing Problem: Communication/Dysarthria Goal: STG - Patient will tolerate PMV trials Outcome: Progressing Problem: Pain/Discomfort Goal: Patient exhibits reduced pain/discomfort as evidenced by pain scores Outcome: Progressing Goal: Patient uses pharmacological and non-pharmacological pain management strategies. Outcome: Progressing Goal: Patient verbalizes acceptable level of pain relief and ability to engage in desired activity. Outcome: Progressing Problem: Skin Integrity Goal: Skin integrity is maintained or improved Outcome: Progressing Problem: Daily Care Goal: Daily care needs are met Outcome: Progressing * Ck Mccurdy MD - 10/20/2022 7:21 AM CDT Internal Medicine Progress Note Admission Date: 08/28/2022 Length of Stay: 53 Subjective Note: He is unable to relay subjective concerns due to mental status (at baseline). He nods in response to some yes-no questions. Objective Temp: [97.3 ??F (36.3 ??C)-97.7 ??F (36.5 ??C)] 97.7 ??F (36.5 ??C) Pulse: [94-103] 95 Resp: [16-20] 18 BP: (120-134)/(72-85) 134/85 O2 %: [40 %] 40 % Weight change: Intake/Output Summary (Last 24 hours) at 10/20/2022 0721 Last data filed at 10/20/2022 0050 Gross per 24 hour Intake 250 ml Output 800 ml Net -550 ml Physical Exam Constitutional: General: He is not in acute distress. Comments: Awake. Responds to verbal stimuli. Weight classification: Underweight. Malnourished. Euvolemic. Cardiovascular: Rate and Rhythm: Normal rate and regular rhythm. Heart sounds: Normal heart sounds. No murmur heard. Pulmonary: Effort: Pulmonary effort is normal. Breath sounds: Normal breath sounds. Comments: Supplemental oxygen being administered via trach collar at 10 L/min. Abdominal: General: Bowel sounds are normal. Palpations: Abdomen is soft. Tenderness: There is no abdominal tenderness. Skin: General: Skin is warm and dry. Neurological: Mental Status: He is alert. Laboratory Data Recent Labs Component Name 10/20/22 0431 10/18/22 0434 10/16/22 0729 10/14/22 0553 WBC 6.6 5.8 9.3 7.0 HGB 11.9* 12.4 13.5 12.7 HCT 36.0 38.0 40.6 38.1 PLTCOUNT 221 - 161 156 MCV 92.5 93.1 93.3 93.6 Recent Labs Component Name 10/20/22 0431 10/18/22 0434 10/16/22 0729 NA 138 140 139 POTASSIUM 4.1 5.5* 4.2 CL 101 105 104 CO2 BUN 21 16 15 CREATININE 0.46* 0.55* 0.44* Recent Labs Component Name 10/20/22 0431 10/18/22 0434 10/16/22 0729 CALCIUM 10.5* 10.1 10.4* PHOS 3.2 3.2 2.8 Assessment and Plan Bi Tabor is a 62 year old male hospitalized with presumed bacteremia (due to Staphylococcus capitis) and mqjmj-ht-lovktcm respiratory failure with hypoxia. Hospital course complicated by hospital-acquired bacterial pneumonia/tracheitis due to Pseudomonas aeruginosa and Acinetobacter baummannii.His active/chronic diseases include cerebrovascular dementia, seizure disorder, dysphagia (post-PEG tube placement), CRF with hypoxia (post-tracheostomy tube placement in Jun, 2022), PAD (post-L AKA), and HTN. Vwjmd-ht-svgxlbf respiratory failure (A-on-CRF) with hypoxia - Resolved Chronic respiratory failure (CRF) with hypoxia Etiology of A-on-CRF accounted for by bacterial pneumonia. Past 24 hrs: Supplemental O2 has been required to maintain adequate O2 saturation. Plan: Supplemental O2 via trach collar to maintain SpO2 >= 92%. Bronchial hygiene. Expectorant pharmacotherapy. Continue levalbuterol nebulizer solution 1.25 mg Q 6 hrs INH. Hospital-acquired pneumonia (HAP) - Resolved Bacterial pneumonia - Resolved Bacterial tracheitis - Resolved Bacteremia due to S. capitis - Resolved Sepsis - Resolved Clinical and imaging findigns consistent with bacterial pneumonia. Risk factors for infection by MDR bacteria include recent hospitalization and recent stay in long-term care facility. 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 Cpych-ad-vojgxfy hypoxic respiratory failure present at time ofdiagnosis consistent with severe sepsis. Past 24 hrs: qSOFA: 0/3; SIRS: 1/4 (tachycardia). Plan: He completed a 10-day course of meropenem on 09/19. Hx Cerebrovascular accident (CVA) Plan: Secondary stroke prevention. - Continue atorvastatin 40 mg QDAY ET. Seizure disorder Plan: AED regimen. Continue levetiracetam 2000 mg BID ET. Continue divalproex 500 mg Q 6 hrs ET. Continue lacosamide 200 mg BID ET. Continue clobazam 20 mg BID ET. Essential (primary) hypertension (HTN) No evidence of new target-organ dysfunction related to HTN. Past 24 hrs: Blood pressure control: fair. Plan: Serial monitoring of blood pressure. Withhold anti-HTN medications in setting of normal blood pressure. Protein-calorie malnutrition Dysphagia Clinical findings consistent with severe protein-calorie malnutrition. Plan: Follow up on nutrition/dietetics recommendations regarding further management of protein-calorie malnutrition. Enteral feedings via PEG tube. Pressure ulcer of right (R) heel, stage 3 Present on admission. Plan: Wound care per wound care consultants. ??? artificial tears Each Eye q8h ??? atorvastatin 40 mg Enteral Tube QDAY ??? chlorhexidine 15 mL Mouth/Throat BID ??? cloBAZam 20 mg Enteral Tube BID ??? divalproex sprinkle 500 mg Enteral Tube q6h ??? enoxaparin 40 mg Subcutaneous QDAY ??? guaiFENesin 10 mL Enteral Tube q6h ??? lacosamide 200 mg Enteral Tube BID ??? levalbuterol 1.25 mg Inhalation q6h ??? levETIRAcetam 2,000 mg Enteral Tube BID ??? scopolamine 1 patch Transdermal q72h And ??? scopolamine patch placement confirmation Transdermal BID ??? senna-docusate 1 tablet Enteral Tube BID ??? acetaminophen ??? dextrose IV for hypoglycemia OR dextrose IV for hypoglycemia ??? glucagon ??? glucose (Diabetic Use) ??? glucose (Diabetic Use) gel ??? glucose chew tab Prophylaxis VTE risk: high. Pharmacologic thromboprophylaxis is indicated. - Continue enoxaparin 40 mg QDAY SubQ. Diet DIET NPO Except: NO EXCEPTIONS DIET TUBE FEEDING CONTINUOUS Activity Level: Activity as tolerated Weight bearing: No restrictions (WBAT) Consults IP CONSULT TO NUTRITIONAL SERV IP CONSULT TO RESPIRATORY IP CONSULT TO NUTRITIONAL SERV IP CONSULT TO INFECTIOUS DISEASES IP CONSULT TO TRACK SERVICE PERSON IP CONSULT TO SKIN CARE NURSE IP CONSULT TO TRACK SERVICE PERSON Disposition Medical Floor (Inpatient) Care Coordination Nursing staff updated with changes to care plan. Updates to disposition plan discussed with social work and case management. Code Status Full Code Summary Problem List Bacterial pneumonia (POA: Yes) History of CVA (cerebrovascular accident) (POA: Yes) Paroxysmal tachycardia, unspecified (CMS/HCC) (POA: Yes) Essential (primary) hypertension (POA: Yes) Seizure disorder (CMS/HCC) (POA: Yes) Sepsis without acute organ dysfunction (CMS/HCC) (POA: Yes) Severe protein-calorie malnutrition (CMS/HCC) (POA: Yes) Tachypnea (POA: Yes) Chronic respiratory failure with hypoxia (CMS/HCC) (POA: Yes) Pressure ulcer of right heel, stage 3 (CMS/HCC) (POA: Yes) Dementia, vascular (CMS/HCC) (POA: Yes) Ck Mccurdy MD Hospitalist [employer] [facility] Pager: Signed: 10/20/2022 7:21 AM * Destiney Cruz RN - 10/20/2022 12:20 AM CDT Patient continues to need regular suction tolerates well. Problem: Impaired Gas Exchange Goal: Resp rate/effort will be within specified limits Outcome: Progressing Problem: Ineffective Airway Clearance Goal: Patent airway Outcome: Progressing Problem: Fall Risk Goal: Fall risk and fall related injury risk are minimized (interventions related to the fall risk can be found in the flowsheet documentation) Outcome: Progressing Problem: Nutrient: Inadequate protein-energy intake Goal: Total intake will meet estimated nutrient needs Outcome: Progressing Problem: Oxygenation/Respiratory Function Goal: Patent airway Outcome: Progressing Goal: Respiratory rate/effort will be within specified limits Outcome: Progressing Problem: Care of Tracheostomy Goal: Tracheostomy tube and site will be maintained Outcome: Progressing Problem: Knowledge Deficit Goal: Patient/Significant other demonstrates understanding of Tracheostomy Outcome: Progressing Problem: Potential for Infection Goal: Insertion site without signs/symptoms of infection Outcome: Progressing Problem: Communication/Dysarthria Goal: STG - Patient will tolerate PMV trials Outcome: Progressing Problem: Pain/Discomfort Goal: Patient exhibits reduced pain/discomfort as evidenced by pain scores Outcome: Progressing Goal: Patient uses pharmacological and non-pharmacological pain management strategies. Outcome: Progressing Goal: Patient verbalizes acceptable level of pain relief and ability to engage in desired activity. Outcome: Progressing Problem: Skin Integrity Goal: Skin integrity is maintained or improved Outcome: Progressing Problem: Daily Care Goal: Daily care needs are met Outcome: Progressing * Suzy Farmer RN - 10/19/2022 9:56 AM CDT Care Coordination Progress Note Anticipated level of care at discharge: Custodial - Medicaid Discharge Plan: SNF. CM received call from sister Ilda. She is requesting a referral to be sent to [facility] for review.Cm spoke with Tab from [facility]. She reviewed and they are unable to accept at this time. CM will cont to work with for discharge. CM will update sister when she calls back. She is currently unavailable READMISSION RISK SCORE is 28 at 9:56 AM 10/19/2022. Anticipated Discharge Date: 10/19/22 Patient/Family provided with list of resources? Yes Preferred Provider / High Quality Network List given?: Yes Reason for provider choice: Pt. choice - previous provider Family Support (Name and Phone): Extended Emergency Contact Information Primary Emergency Contact: Adriane Pearson Mobile Relation: Sister Shop Mechanic needed? No Secondary Emergency Contact: Amarjit Tabor [facility] Relation: Brother Patient is alert & orientated or has capacity for decision making: Yes If No , Legal or Designated Decision Maker: N/A Transportation at Discharge: Ambulance Equipment at Home: Equipment at Home: Facility Equipment List DME patient requires but does not have: DME Provider: Medication affordability concerns: No Follow Up Appointment: Transportation to MD: Auth Number (if required): [place]: DME: Medications: Transportation: Name: Suzy Farmer RN Phone: [phone] * Gaurav Juarez MSW - 10/19/2022 8:34 AM CDT has sent several additional referrals including [facility] facilities near [place]. to continue to follow for SNF placement. CLARITA Fang 10/19/2022 * Ck Mccurdy MD - 10/19/2022 7:39 AM CDT Internal Medicine Progress Note Admission Date: 08/28/2022 Length of Stay: 52 Subjective Note: He is unable to relay subjective concerns due to mental status (at baseline). Objective Temp: [98.6 ??F (37 ??C)-99.1 ??F (37.3 ??C)] 98.6 ??F (37 ??C) Pulse: [100-117] 103 Resp: [14-22] 16 BP: (117-122)/(75-78) 122/78 O2 %: [28 %] 28 % Weight change: Intake/Output Summary (Last 24 hours) at 10/19/2022 0739 Last data filed at 10/19/2022 0026 Gross per 24 hour Intake 850 ml Output 700 ml Net 150 ml Physical Exam Constitutional: General: He is not in acute distress. Comments: Sleeping. Easily awoken. Responds to verbal stimuli. Weight classification: Underweight. Malnourished. Euvolemic. Cardiovascular: Rate and Rhythm: Normal rate and regular rhythm. Heart sounds: Normal heart sounds. No murmur heard. Pulmonary: Effort: Pulmonary effort is normal. Breath sounds: Normal breath sounds. Comments: Supplemental oxygen being administered via trach collar at 10 L/min. Abdominal: General: Bowel sounds are normal. Palpations: Abdomen is soft. Tenderness: There is no abdominal tenderness. Skin: General: Skin is warm and dry. Laboratory Data Recent Labs Component Name 10/18/22 0434 10/16/22 0729 10/14/22 0553 10/12/22 0716 WBC 5.8 9.3 7.0 9.2 HGB 12.4 13.5 12.7 12.1 HCT 38.0 40.6 38.1 36.0 PLTCOUNT - 161 156 165 MCV 93.1 93.3 93.6 94.0 Recent Labs Component Name 10/18/22 0434 10/16/22 0729 10/14/22 0553 NA 140 139 140 POTASSIUM 5.5* 4.2 4.5 CL 105 104 106 CO2 22 23 27 BUN 16 15 15 CREATININE 0.55* 0.44* 0.43* Recent Labs Component Name 10/18/22 0434 10/16/22 0729 10/14/22 0553 CALCIUM 10.1 10.4* 10.2 PHOS 3.2 2.8 3.2 Assessment and Plan Bi Tabor is a 62 year old male hospitalized with presumed bacteremia (due to Staphylococcus capitis) and lfrel-rq-gwiubrc respiratory failure with hypoxia. Hospital course complicated by hospital-acquired bacterial pneumonia/tracheitis due to Pseudomonas aeruginosa and Acinetobacter baummannii.His active/chronic diseases include cerebrovascular dementia, seizure disorder, dysphagia (post-PEG tube placement), CRF with hypoxia (post-tracheostomy tube placement in Jun, 2022), PAD (post-L AKA), and HTN. Sofae-le-ihqjroh respiratory failure (A-on-CRF) with hypoxia - Resolved Chronic respiratory failure (CRF) with hypoxia Etiology of A-on-CRF accounted for by bacterial pneumonia. Past 24 hrs: Supplemental O2 has been required to maintain adequate O2 saturation. Plan: Supplemental O2 via trach collar to maintain SpO2 >= 92%. Bronchial hygiene. Expectorant pharmacotherapy. Continue levalbuterol nebulizer solution 1.25 mg Q 6 hrs INH. Hospital-acquired pneumonia (HAP) - Resolved Bacterial pneumonia - Resolved Bacterial tracheitis - Resolved Bacteremia due to S. capitis - Resolved Sepsis - Resolved Clinical and imaging findigns consistent with bacterial pneumonia. Risk factors for infection by MDR bacteria include recent hospitalization and recent stay in long-term care facility. 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 Dxqbr-pl-oqbenpw hypoxic respiratory failure present at time ofdiagnosis consistent with severe sepsis. Past 24 hrs: qSOFA: 1/3 (tachypnea); SIRS: 2/4 (tachycardia and tachypnea). Plan: He completed a 10-day course of meropenem on 09/19. Hx Cerebrovascular accident (CVA) Plan: Secondary stroke prevention. - Continue atorvastatin 40 mg QDAY ET. Seizure disorder Plan: AED regimen. Continue levetiracetam 2000 mg BID ET. Continue divalproex 500 mg Q 6 hrs ET. Continue lacosamide 200 mg BID ET. Continue clobazam 20 mg BID ET. Essential (primary) hypertension (HTN) No evidence of new target-organ dysfunction related to HTN. Past 24 hrs: Blood pressure control: fair. Plan: Serial monitoring of blood pressure. Withhold anti-HTN medications in setting of normal blood pressure. Protein-calorie malnutrition Dysphagia Clinical findings consistent with severe protein-calorie malnutrition. Plan: Follow up on nutrition/dietetics recommendations regarding further management of protein-calorie malnutrition. Enteral feedings via PEG tube. Pressure ulcer of right (R) heel, stage 3 Present on admission. Plan: Wound care per wound care consultants. ??? artificial tears Each Eye q8h ??? atorvastatin 40 mg Enteral Tube QDAY ??? chlorhexidine 15 mL Mouth/Throat BID ??? cloBAZam 20 mg Enteral Tube BID ??? divalproex sprinkle 500 mg Enteral Tube q6h ??? enoxaparin 40 mg Subcutaneous QDAY ??? guaiFENesin 10 mL Enteral Tube q6h ??? lacosamide 200 mg Enteral Tube BID ??? levalbuterol 1.25 mg Inhalation q6h ??? levETIRAcetam 2,000 mg Enteral Tube BID ??? scopolamine 1 patch Transdermal q72h And ??? scopolamine patch placement confirmation Transdermal BID ??? senna-docusate 1 tablet Enteral Tube BID ??? acetaminophen ??? dextrose IV for hypoglycemia OR dextrose IV for hypoglycemia ??? glucagon ??? glucose (Diabetic Use) ??? glucose (Diabetic Use) gel ??? glucose chew tab Prophylaxis VTE risk: high. Pharmacologic thromboprophylaxis is indicated. - Continue enoxaparin 40 mg QDAY SubQ. Diet DIET NPO Except: NO EXCEPTIONS DIET TUBE FEEDING CONTINUOUS Activity Level: Activity as tolerated Weight bearing: No restrictions (WBAT) Consults IP CONSULT TO NUTRITIONAL SERV IP CONSULT TO RESPIRATORY IP CONSULT TO NUTRITIONAL SERV IP CONSULT TO INFECTIOUS DISEASES IP CONSULT TO TRACK SERVICE PERSON IP CONSULT TO SKIN CARE NURSE IP CONSULT TO TRACK SERVICE PERSON Disposition Medical Floor (Inpatient) Care Coordination Nursing staff updated with changes to care plan. Updates to disposition plan discussed with social work and case management. Code Status Full Code Summary Problem List Bacterial pneumonia (POA: Yes) History of CVA (cerebrovascular accident) (POA: Yes) Paroxysmal tachycardia, unspecified (CMS/HCC) (POA: Yes) Essential (primary) hypertension (POA: Yes) Seizure disorder (CMS/HCC) (POA: Yes) Sepsis without acute organ dysfunction (CMS/HCC) (POA: Yes) Severe protein-calorie malnutrition (CMS/HCC) (POA: Yes) Tachypnea (POA: Yes) Chronic respiratory failure with hypoxia (CMS/HCC) (POA: Yes) Pressure ulcer of right heel, stage 3 (CMS/HCC) (POA: Yes) Dementia, vascular (CMS/HCC) (POA: Yes) Ck Mccurdy MD Hospitalist [employer] [facility] Pager: Signed: 10/19/2022 7:39 AM * Riky Lara RN - 10/19/2022 7:27 AM CDT Problem: Impaired Gas Exchange Goal: Resp rate/effort will be within specified limits Outcome: Progressing Problem: Ineffective Airway Clearance Goal: Patent airway Outcome: Progressing Problem: Fall Risk Goal: Fall risk and fall related injury risk are minimized (interventions related to the fall risk can be found in the flowsheet documentation) Outcome: Progressing Problem: Nutrient: Inadequate protein-energy intake Goal: Total intake will meet estimated nutrient needs Outcome: Progressing Problem: Oxygenation/Respiratory Function Goal: Patent airway Outcome: Progressing Goal: Respiratory rate/effort will be within specified limits Outcome: Progressing Problem: Care of Tracheostomy Goal: Tracheostomy tube and site will be maintained Outcome: Progressing Problem: Potential for Infection Goal: Insertion site without signs/symptoms of infection Outcome: Progressing Problem: Knowledge Deficit Goal: Patient/Significant other demonstrates understanding of Tracheostomy Outcome: Progressing Problem: Communication/Dysarthria Goal: STG - Patient will tolerate PMV trials Outcome: Progressing Problem: Pain/Discomfort Goal: Patient exhibits reduced pain/discomfort as evidenced by pain scores Outcome: Progressing Goal: Patient uses pharmacological and non-pharmacological pain management strategies. Outcome: Progressing Goal: Patient verbalizes acceptable level of pain relief and ability to engage in desired activity. Outcome: Progressing Problem: Skin Integrity Goal: Skin integrity is maintained or improved Outcome: Progressing Problem: Daily Care Goal: Daily care needs are met Outcome: Progressing * Destiney Cruz RN - 10/19/2022 12:16 AM CDT Problem: Impaired Gas Exchange Goal: Resp rate/effort will be within specified limits Outcome: Progressing Problem: Ineffective Airway Clearance Goal: Patent airway Outcome: Progressing Problem: Fall Risk Goal: Fall risk and fall related injury risk are minimized (interventions related to the fall risk can be found in the flowsheet documentation) Outcome: Progressing Problem: Nutrient: Inadequate protein-energy intake Goal: Total intake will meet estimated nutrient needs Outcome: Progressing Problem: Oxygenation/Respiratory Function Goal: Patent airway Outcome: Progressing Goal: Respiratory rate/effort will be within specified limits Outcome: Progressing Problem: Care of Tracheostomy Goal: Tracheostomy tube and site will be maintained Outcome: Progressing Problem: Potential for Infection Goal: Insertion site without signs/symptoms of infection Outcome: Progressing Problem: Knowledge Deficit Goal: Patient/Significant other demonstrates understanding of Tracheostomy Outcome: Progressing Problem: Communication/Dysarthria Goal: STG - Patient will tolerate PMV trials Outcome: Progressing Problem: Pain/Discomfort Goal: Patient exhibits reduced pain/discomfort as evidenced by pain scores Outcome: Progressing Goal: Patient uses pharmacological and non-pharmacological pain management strategies. Outcome: Progressing Goal: Patient verbalizes acceptable level of pain relief and ability to engage in desired activity. Outcome: Progressing * Susan De Paz RN - 10/18/2022 4:29 PM CDT Problem: Impaired Gas Exchange Goal: Resp rate/effort will be within specified limits Outcome: Progressing Problem: Ineffective Airway Clearance Goal: Patent airway Outcome: Progressing Problem: Fall Risk Goal: Fall risk and fall related injury risk are minimized (interventions related to the fall risk can be found in the flowsheet documentation) Outcome: Progressing Problem: Nutrient: Inadequate protein-energy intake Goal: Total intake will meet estimated nutrient needs Outcome: Progressing Problem: Oxygenation/Respiratory Function Goal: Patent airway Outcome: Progressing Goal: Respiratory rate/effort will be within specified limits Outcome: Progressing Problem: Care of Tracheostomy Goal: Tracheostomy tube and site will be maintained Outcome: Progressing Problem: Potential for Infection Goal: Insertion site without signs/symptoms of infection Outcome: Progressing Problem: Knowledge Deficit Goal: Patient/Significant other demonstrates understanding of Tracheostomy Outcome: Progressing Problem: Communication/Dysarthria Goal: STG - Patient will tolerate PMV trials Outcome: Progressing Problem: Pain/Discomfort Goal: Patient exhibits reduced pain/discomfort as evidenced by pain scores Outcome: Progressing Goal: Patient uses pharmacological and non-pharmacological pain management strategies. Outcome: Progressing Goal: Patient verbalizes acceptable level of pain relief and ability to engage in desired activity. Outcome: Progressing Problem: Skin Integrity Goal: Skin integrity is maintained or improved Outcome: Progressing Problem: Daily Care Goal: Daily care needs are met Outcome: Progressing * Ana Castor RD/NOLAN - 10/18/2022 10:42 AM CDT Nutrition Re-Assessment Brief Synopsis: Patient is diagnosed with severe malnutrition; Specific criteria can be found in assessment below Nutrition Plan: NPO + TF Tube Feeding Recommendations: Continuous: Nepro at 60 ml/hr. Provides 2592 kcal, 117 g protein, 232 g carbohydrate, 1047 ml free water. +250 ml q4 hrs free water flush or per MD if not on additional fluids Recommendations to Physician: See TF recs above Monitor electrolytes Code for severe malnutrition Comments: Pt scheduled for reassessment. Pt receiving TF of TwoCal HN at goal via PEG. 0mL residuals reported 10/16; 15mL residuals reported 10/15. RD altered TF order 07/01 this facility being out of stock of TwoCal HN, see TF recs above. Potassium elevated. +BM x2 over 24hrs per I/Os. Will continue to follow. 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 Diet order accuracy Current diet order: NPO Current tube feeding order: Two Bruno HN at 55mL/hr Nutrition recommendation: agree with current nutrition order P.O.Intake for the past 48 hrs:No data recorded Supplement(s) Consumed- Last 48 hours None Food Allergies: No known food allergies GI Concerns: None Chewing/Swallowing: Dysphagia Pain affecting intake: No Admission weight: Weight: 63.5 kg (140 lb) (08/28/22 1101) Recent Weights/Methods 09/21/2022 0400 09/24/2022 0400 09/26/2022 2112 10/02/2022 0400 10/05/2022 0445 10/05/2022 0506 10/11/2022 0400 10/12/2022 0400 Weight: 63.1 kg (139 lb 3.2 oz) 61.5 kg (135 lb 8 oz) 61.5 kg (135 lb 9.6 oz) 60.8 kg (134 lb) -- 54 kg (119 lb) 54.4 kg (120 lb) 54.9 kg (121 lb) Weight Method (Utilize Scales): -- -- -- Bedscale -- Bedscale Bedscale Bedscale Wt Comments: New wt ordered today Height: 182.9 cm (6' 0.01 ) IBW/lb (Calculated) Male: [id number] , Laboratory values reviewed. Recent Labs Component Name 10/18/22 0434 10/16/22 0729 10/14/22 0553 10/12/22 0716 10/09/22 1204 08/30/22 0039 08/28/22 2224 08/28/22 1251 BUN 16 15 15 - 14 - 11 12 CREATININE 0.55* 0.44* 0.43* - 0.39* - 0.50* 0.51* NA 140 139 140 - 140 - 142 139 POTASSIUM 5.5* 4.2 4.5 - 4.0 - 3.9 4.5 CL 105 104 106 - 108* - 111* 103 CO2 22 23 27 - 24 - 24 27 GLUCOSE 118* 117* 100 - 115 - 86 100 CALCIUM 10.1 10.4* 10.2 - 9.8 - 8.8 9.8 PROT - - - - 6.9 - 6.0 7.5 ALB - - - - 3.0* - 2.0* 2.5* TBILI - - - - 0.1* - 0.6 0.5 ALKPHOS - - - - 83 - 67 88 ALT - - - - 10 - 5 6 AST - - - - 15 - 13 14 ANIONGAP 19* 16 12 - 12 - 11 14 BCR 29* 34* 35* - 36* - 22 24* OSMOLALITY 292 290 291 - 291 - 293 288 AGRATIO - - - - 0.8* - 0.5* 0.5* EGFR >90 >90 >90 - >90 - >90 >90 - = values in this interval not displayed. Medications noted. Current Facility-Administered Medications Medication ??? acetaminophen (Tylenol) tablet 650 mg ??? artificial tears ophthalmic ointment ??? atorvastatin (Lipitor) tablet 40 mg ??? chlorhexidine (Peridex) 0.12 % oral solution 15 mL ??? cloBAZam (Onfi) tablet 20 mg ??? dextrose 10 % IV bolus Or ??? dextrose 10 % IV bolus ??? divalproex sprinkle (Depakote Sprinkle) capsule 500 mg ??? enoxaparin (Lovenox) injection 40 mg ??? glucagon (Glucagen) injection 1 mg ??? glucose (Diabetic Use) (Dex4 Glucose) oral liquid ??? glucose (Diabetic Use) oral gel ??? glucose chew tablet 4 tablet ??? guaiFENesin (Robitussin) solution 10 mL ??? lacosamide (Vimpat) tablet 200 mg ??? levalbuterol (Xopenex) nebulizer solution 1.25 mg ??? levETIRAcetam (Keppra) tablet 2,000 mg ??? scopolamine (Transderm-Scop) 1 patch And ??? scopolamine patch placement confirmation ??? senna-docusate (Senokot-S) tablet 1 tablet Skin/Wound: WDL Estimated Energy Needs: KCAL: 3196-3100 (35-45kcal/kg (ABW)) Protein (g): 95-125g (20% of estimated kcal needs) Fluid (ml):1 ml/kcal Needs based on: Kcal/kg- (Comment) (ABW 54.9kg) Recommended Access Route: TF Malnutrition Etiology: Malnutrition in the context of: chronic disease, Malnutrition Severity: Severe BMI: Body mass index is 16.41 kg/m??. GI Concerns: None Nutrition Focused Physical Assessment: Loss of Subcutaneous Fat Orbital: Severe Buccal: Severe Tricep: Severe Muscle Loss Temples (Temporalis Muscle): Severe Clavicles (Pectoralis & Deltoids): Severe Shoulders (Deltoids): Severe Nutrition Care Process (2) Nutrition Diagnostic Statement (2): Malnutrition related to:: inadequate protein-energy intake as evidenced by:: unintentional weight loss;BMI less than 19;loss of subcutaneous fat;loss of muscle mass Nutrition Diagnostic Statement Progress: New diagnostic statement established Nutrition Intervention: Enteral nutrition: Monitoring: TF, BM, labs, meds, weight Evaluation: Nutrition Goal: Total intake will meet estimated nutrient needs Nutrition Goal Timeframe: Throughout stay Nutrition Goal Progress: Continue with current goal [id number] * Ck Mccurdy MD - 10/18/2022 7:15 AM CDT Internal Medicine Progress Note Admission Date: 08/28/2022 Length of Stay: 51 Subjective Note: He is unable to relay subjective concerns due to mental status (at baseline). Respiratory therapy reports scant secretions. Objective Temp: [97.9 ??F (36.6 ??C)] 97.9 ??F (36.6 ??C) Pulse: [94-112] 101 Resp: [16-24] 24 BP: (128-146)/(80-86) 137/81 O2 %: [28 %-29 %] 28 % Weight change: Intake/Output Summary (Last 24 hours) at 10/18/2022 0716 Last data filed at 10/18/2022 0555 Gross per 24 hour Intake 1813 ml Output 2500 ml Net -687 ml Physical Exam Constitutional: General: He is not in acute distress. Comments: Sleeping. Not interactive. Responds to verbal stimuli. Weight classification: Underweight. Malnourished. Euvolemic. Cardiovascular: Rate and Rhythm: Normal rate and regular rhythm. Heart sounds: Normal heart sounds. No murmur heard. Pulmonary: Effort: Pulmonary effort is normal. Breath sounds: Normal breath sounds. Comments: Supplemental oxygen being administered via trach collar at 10 L/min. Abdominal: General: Bowel sounds are normal. Palpations: Abdomen is soft. Tenderness: There is no abdominal tenderness. Skin: General: Skin is warm and dry. Laboratory Data Recent Labs Component Name 05/22/23 0434 10/16/22 0729 10/14/22 0553 10/12/22 0716 WBC 5.8 9.3 7.0 9.2 HGB 12.4 13.5 12.7 12.1 HCT 38.0 40.6 38.1 36.0 PLTCOUNT - 161 156 165 MCV 93.1 93.3 93.6 94.0 Recent Labs Component Name 10/18/22 0434 10/16/22 0729 10/14/22 0553 NA 140 139 140 POTASSIUM 5.5* 4.2 4.5 CL 105 104 106 CO2 BUN 16 15 15 CREATININE 0.55* 0.44* 0.43* Recent Labs Component Name 10/18/22 0434 10/16/22 0729 10/14/22 0553 CALCIUM 10.1 10.4* 10.2 PHOS 3.2 2.8 3.2 Assessment and Plan Bi Tabor is a 62 year old male hospitalized with presumed bacteremia (due to Staphylococcus capitis) and fzvsx-tf-wzswxdf respiratory failure with hypoxia. Hospital course complicated by hospital-acquired bacterial pneumonia/tracheitis due to Pseudomonas aeruginosa and Acinetobacter baummannii.His active/chronic diseases include cerebrovascular dementia, seizure disorder, dysphagia (post-PEG tube placement), CRF with hypoxia (post-tracheostomy tube placement in Jun, 2022), PAD (post-L AKA), and HTN. Urnti-mq-tolzbwg respiratory failure (A-on-CRF) with hypoxia - Resolved Chronic respiratory failure (CRF) with hypoxia Etiology of A-on-CRF accounted for by bacterial pneumonia. Past 24 hrs: Supplemental O2 has been required to maintain adequate O2 saturation. Plan: Supplemental O2 via trach collar to maintain SpO2 >= 92%. Bronchial hygiene. Expectorant pharmacotherapy. Continue levalbuterol nebulizer solution 1.25 mg Q 6 hrs INH. Discontinue NaCl 7% nebulizer solution Q 6 hrs INH. Hospital-acquired pneumonia (HAP) - Resolved Bacterial pneumonia - Resolved Bacterial tracheitis - Resolved Bacteremia due to S. capitis - Resolved Sepsis - Resolved Clinical and imaging findigns consistent with bacterial pneumonia. Risk factors for infection by MDR bacteria include recent hospitalization and recent stay in long-term care facility. 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 Dplgy-qj-ntbnjbe hypoxic respiratory failure present at time ofdiagnosis consistent with severe sepsis. Past 24 hrs: qSOFA: 1/3 (tachypnea); SIRS: 2/4 (tachycardia and tachypnea). Plan: He completed a 10-day course of meropenem on 09/19. Hx Cerebrovascular accident (CVA) Plan: Secondary stroke prevention. - Continue atorvastatin 40 mg QDAY ET. Seizure disorder Plan: AED regimen. Continue levetiracetam 2000 mg BID ET. Continue divalproex 500 mg Q 6 hrs ET. Continue lacosamide 200 mg BID ET. Continue clobazam 20 mg BID ET. Essential (primary) hypertension (HTN) No evidence of new target-organ dysfunction related to HTN. Past 24 hrs: Blood pressure control: fair. Plan: Serial monitoring of blood pressure. Withhold anti-HTN medications in setting of normal blood pressure. Protein-calorie malnutrition Dysphagia Clinical findings consistent with severe protein-calorie malnutrition. Plan: Follow up on nutrition/dietetics recommendations regarding further management of protein-calorie malnutrition. Enteral feedings via PEG tube. Pressure ulcer of right (R) heel, stage 3 Present on admission. Plan: Wound care per wound care consultants. ??? artificial tears Each Eye q8h ??? atorvastatin 40 mg Enteral Tube QDAY ??? chlorhexidine 15 mL Mouth/Throat BID ??? cloBAZam 20 mg Enteral Tube BID ??? divalproex sprinkle 500 mg Enteral Tube q6h ??? enoxaparin 40 mg Subcutaneous QDAY ??? guaiFENesin 10 mL Enteral Tube q6h ??? lacosamide 200 mg Enteral Tube BID ??? levalbuterol 1.25 mg Inhalation q6h ??? levETIRAcetam 2,000 mg Enteral Tube BID ??? scopolamine 1 patch Transdermal q72h And ??? scopolamine patch placement confirmation Transdermal BID ??? senna-docusate 1 tablet Enteral Tube BID ??? sodium chloride (Inhalant) 4 mL Inhalation q6h ??? acetaminophen ??? dextrose IV for hypoglycemia OR dextrose IV for hypoglycemia ??? glucagon ??? glucose (Diabetic Use) ??? glucose (Diabetic Use) gel ??? glucose chew tab Prophylaxis VTE risk: high. Pharmacologic thromboprophylaxis is indicated. - Continue enoxaparin 40 mg QDAY SubQ. Diet DIET NPO Except: NO EXCEPTIONS DIET TUBE FEEDING CONTINUOUS Activity Level: Activity as tolerated Weight bearing: No restrictions (WBAT) Consults IP CONSULT TO NUTRITIONAL SERV IP CONSULT TO RESPIRATORY IP CONSULT TO NUTRITIONAL SERV IP CONSULT TO INFECTIOUS DISEASES IP CONSULT TO TRACK SERVICE PERSON IP CONSULT TO SKIN CARE NURSE IP CONSULT TO TRACK SERVICE PERSON Disposition Medical Floor (Inpatient) Care Coordination Nursing staff updated with changes to care plan. Updates to disposition plan discussed with social work and case management. Code Status Full Code Summary Problem List Bacterial pneumonia (POA: Yes) History of CVA (cerebrovascular accident) (POA: Yes) Paroxysmal tachycardia, unspecified (CMS/HCC) (POA: Yes) Essential (primary) hypertension (POA: Yes) Seizure disorder (CMS/HCC) (POA: Yes) Sepsis without acute organ dysfunction (CMS/HCC) (POA: Yes) Severe protein-calorie malnutrition (CMS/HCC) (POA: Yes) Tachypnea (POA: Yes) Chronic respiratory failure with hypoxia (CMS/HCC) (POA: Yes) Pressure ulcer of right heel, stage 3 (CMS/HCC) (POA: Yes) Dementia, vascular (CMS/HCC) (POA: Yes) Ck Mccurdy MD Hospitalist [employer] [facility] Pager: Signed: 10/18/2022 7:16 AM * Destiney Cruz RN - 10/17/2022 7:35 PM CDT Problem: Impaired Gas Exchange Goal: Resp rate/effort will be within specified limits Outcome: Progressing Problem: Ineffective Airway Clearance Goal: Patent airway Outcome: Progressing Problem: Fall Risk Goal: Fall risk and fall related injury risk are minimized (interventions related to the fall risk can be found in the flowsheet documentation) Outcome: Progressing Problem: Nutrient: Inadequate protein-energy intake Goal: Total intake will meet estimated nutrient needs Outcome: Progressing Problem: Oxygenation/Respiratory Function Goal: Patent airway Outcome: Progressing Goal: Respiratory rate/effort will be within specified limits Outcome: Progressing Problem: Care of Tracheostomy Goal: Tracheostomy tube and site will be maintained Outcome: Progressing Problem: Knowledge Deficit Goal: Patient/Significant other demonstrates understanding of Tracheostomy Outcome: Progressing Problem: Communication/Dysarthria Goal: STG - Patient will tolerate PMV trials Outcome: Progressing Problem: Skin Integrity Goal: Skin integrity is maintained or improved Outcome: Progressing Problem: Daily Care Goal: Daily care needs are met Outcome: Progressing * Maia Hoskins RN - 10/17/2022 12:03 PM CDT Problem: Impaired Gas Exchange Goal: Resp rate/effort will be within specified limits Outcome: Progressing Problem: Ineffective Airway Clearance Goal: Patent airway Outcome: Progressing Problem: Fall Risk Goal: Fall risk and fall related injury risk are minimized (interventions related to the fall risk can be found in the flowsheet documentation) Outcome: Progressing Problem: Nutrient: Inadequate protein-energy intake Goal: Total intake will meet estimated nutrient needs Outcome: Progressing Problem: Oxygenation/Respiratory Function Goal: Patent airway Outcome: Progressing Goal: Respiratory rate/effort will be within specified limits Outcome: Progressing Problem: Care of Tracheostomy Goal: Tracheostomy tube and site will be maintained Outcome: Progressing Problem: Potential for Infection Goal: Insertion site without signs/symptoms of infection Outcome: Progressing Problem: Knowledge Deficit Goal: Patient/Significant other demonstrates understanding of Tracheostomy Outcome: Progressing Problem: Communication/Dysarthria Goal: STG - Patient will tolerate PMV trials Outcome: Progressing Problem: Pain/Discomfort Goal: Patient exhibits reduced pain/discomfort as evidenced by pain scores Outcome: Progressing Goal: Patient uses pharmacological and non-pharmacological pain management strategies. Outcome: Progressing Goal: Patient verbalizes acceptable level of pain relief and ability to engage in desired activity. Outcome: Progressing Problem: Skin Integrity Goal: Skin integrity is maintained or improved Outcome: Progressing * Ck Mccurdy MD - 10/17/2022 7:19 AM CDT Internal Medicine Progress Note Admission Date: 08/28/2022 Length of Stay: 50 Subjective Note: He is unable to relay subjective concerns due to mental status (at baseline). Objective Temp: [98.1 ??F (36.7 ??C)] 98.1 ??F (36.7 ??C) Pulse: [106-117] 112 Resp: [16-20] 16 BP: (142-158)/(86-88) 157/88 O2 %: [28 %-29 %] 29 % Weight change: Intake/Output Summary (Last 24 hours) at 10/17/2022 0719 Last data filed at 10/16/20221999 Gross per 24 hour Intake 60 ml Output 0 ml Net 60 ml Physical Exam Constitutional: General: He is not in acute distress. Comments: Awake. Not interactive. Responds to verbal stimuli. Weight classification: Underweight. Malnourished. Euvolemic. Cardiovascular: Rate and Rhythm: Normal rate and regular rhythm. Heart sounds: Normal heart sounds. No murmur heard. Pulmonary: Effort: Pulmonary effort is normal. Breath sounds: Normal breath sounds. Comments: Supplemental oxygen being administered via trach collar at 10 L/min. Abdominal: General: Bowel sounds are normal. Palpations: Abdomen is soft. Tenderness: There is no abdominal tenderness. Skin: General: Skin is warm and dry. Neurological: Mental Status: He is alert. Laboratory Data Recent Labs Component Name 10/16/22 0729 10/14/22 0553 10/12/22 0716 WBC 9.3 7.0 9.2 HGB 13.5 12.7 12.1 HCT 40.6 38.1 36.0 PLTCOUNT 161 156 165 MCV 93.3 93.6 94.0 Recent Labs Component Name 10/16/22 0729 10/14/22 0553 10/12/22 0716 NA 139 140 141 POTASSIUM 4.2 4.5 4.2 CL 104 106 106 CO2 23 27 25 BUN 15 15 12 CREATININE 0.44* 0.43* 0.50* Recent Labs Component Name 10/16/22 0729 10/14/22 0553 10/12/22 0716 CALCIUM 10.4* 10.2 10.1 PHOS 2.8 3.2 3.4 Recent Labs Component Name 10/09/22 1204 08/28/22 2224 08/28/22 1251 06/30/22 1039 03/03/18 1745 01/30/18 1255 11/28/17 0455 10/14/17 1349 PROT 6.9 6.0 7.5 6.2 - 6.9 - 7.0 ALB 3.0* 2.0* 2.5* 2.2* - 3.7 - 3.9 ALKPHOS 83 67 88 65 - 75 - 86 AST 15 13 14 13 - 14 - 18 ALT 10 5 6 5 - 10 - 9 TBILI 0.1* 0.6 0.5 0.3 - 0.4 - 0.6 DBILI - - - 0.2 - 0.2 - 0.2 - = values in this interval not displayed. Assessment and Plan Bi Tabor is a 62 year old male hospitalized with presumed bacteremia (due to Staphylococcus capitis) and fhsmv-wa-nlfgojc respiratory failure with hypoxia. Hospital course complicated by hospital-acquired bacterial pneumonia/tracheitis due to Pseudomonas aeruginosa and Acinetobacter baummannii.His active/chronic diseases include cerebrovascular dementia, seizure disorder, dysphagia (post-PEG tube placement), CRF with hypoxia (post-tracheostomy tube placement in Jun, 2022), PAD (post-L AKA), and HTN. Yejeh-hr-livxcot respiratory failure (A-on-CRF) with hypoxia - Resolved Chronic respiratory failure (CRF) with hypoxia Etiology of A-on-CRF accounted for by bacterial pneumonia. Past 24 hrs: Supplemental O2 has been required to maintain adequate O2 saturation. Plan: Supplemental O2 via trach collar to maintain SpO2 >= 92%. Bronchial hygiene. Expectorant pharmacotherapy. Continue levalbuterol nebulizer solution 1.25 mg Q 6 hrs INH. Continue NaCl 7% nebulizer solution Q 6 hrs INH. Hospital-acquired pneumonia (HAP) - Resolved Bacterial pneumonia - Resolved Bacterial tracheitis - Resolved Bacteremia due to S. capitis - Resolved Sepsis - Resolved Clinical and imaging findigns consistent with bacterial pneumonia. Risk factors for infection by MDR bacteria include recent hospitalization and recent stay in long-term care facility. 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 Nrfbe-bz-ycyvdfo hypoxic respiratory failure present at time ofdiagnosis consistent with severe sepsis. Past 24 hrs: qSOFA: 0/3; SIRS: 1/4 (tachycardia). Plan: He completed a 10-day course of meropenem on 09/19. Hx Cerebrovascular accident (CVA) Plan: Secondary stroke prevention. - Continue atorvastatin 40 mg QDAY ET. Seizure disorder Plan: AED regimen. Continue levetiracetam 2000 mg BID ET. Continue divalproex 500 mg Q 6 hrs ET. Continue lacosamide 200 mg BID ET. Continue clobazam 20 mg BID ET. Essential (primary) hypertension (HTN) No evidence of new target-organ dysfunction related to HTN. Past 24 hrs: Blood pressure control: fair. Plan: Serial monitoring of blood pressure. Withhold anti-HTN medications in setting of normal blood pressure. Protein-calorie malnutrition Dysphagia Clinical findings consistent with severe protein-calorie malnutrition. Plan: Follow up on nutrition/dietetics recommendations regarding further management of protein-calorie malnutrition. Enteral feedings via PEG tube. Pressure ulcer of right (R) heel, stage 3 Present on admission. Plan: Wound care per wound care consultants. ??? artificial tears Each Eye q8h ??? atorvastatin 40 mg Enteral Tube QDAY ??? chlorhexidine 15 mL Mouth/Throat BID ??? cloBAZam 20 mg Enteral Tube BID ??? divalproex sprinkle 500 mg Enteral Tube q6h ??? enoxaparin 40 mg Subcutaneous QDAY ??? guaiFENesin 10 mL Enteral Tube q6h ??? lacosamide 200 mg Enteral Tube BID ??? levalbuterol 1.25 mg Inhalation q6h ??? levETIRAcetam 2,000 mg Enteral Tube BID ??? scopolamine 1 patch Transdermal q72h And ??? scopolamine patch placement confirmation Transdermal BID ??? senna-docusate 1 tablet Enteral Tube BID ??? sodium chloride (Inhalant) 4 mL Inhalation q6h ??? acetaminophen ??? dextrose IV for hypoglycemia OR dextrose IV for hypoglycemia ??? glucagon ??? glucose (Diabetic Use) ??? glucose (Diabetic Use) gel ??? glucose chew tab Prophylaxis VTE risk: high. Pharmacologic thromboprophylaxis is indicated. - Continue enoxaparin 40 mg QDAY SubQ. Diet DIET NPO Except: NO EXCEPTIONS DIET TUBE FEEDING CONTINUOUS Activity Level: Activity as tolerated Weight bearing: No restrictions (WBAT) Consults IP CONSULT TO NUTRITIONAL SERV IP CONSULT TO RESPIRATORY IP CONSULT TO NUTRITIONAL SERV IP CONSULT TO INFECTIOUS DISEASES IP CONSULT TO TRACK SERVICE PERSON IP CONSULT TO SKIN CARE NURSE IP CONSULT TO TRACK SERVICE PERSON Disposition Medical Floor (Inpatient) Care Coordination Nursing staff updated with changes to care plan. Approximately 52 minutes was spent reviewing medical records including laboratory/imaging data, updating nursing staff regarding changes to care plan and providing updates to/discussing care plan with patient. Greater than 50% of the time was spent performing care coordination. Code Status Full Code Summary Problem List History of CVA (cerebrovascular accident) (POA: Yes) Paroxysmal tachycardia, unspecified (CMS/HCC) (POA: Yes) Essential (primary) hypertension (POA: Yes) Seizure disorder (CMS/HCC) (POA: Yes) Sepsis without acute organ dysfunction (CMS/HCC) (POA: Yes) Severe protein-calorie malnutrition (CMS/HCC) (POA: Yes) Tachypnea (POA: Yes) Chronic respiratory failure with hypoxia (CMS/HCC) (POA: Yes) Pressure ulcer of right heel, stage 3 (CMS/HCC) (POA: Yes) Dementia, vascular (CMS/HCC) (POA: Yes) Ck Mccurdy MD Hospitalist [employer] [facility] Pager: Signed: 10/17/2022 7:19 AM * Ramonita Oropeza RN - 10/17/2022 4:18 AM CDT Problem: Impaired Gas Exchange Goal: Resp rate/effort will be within specified limits Outcome: Progressing Problem: Ineffective Airway Clearance Goal: Patent airway Outcome: Progressing Problem: Fall Risk Goal: Fall risk and fall related injury risk are minimized (interventions related to the fall risk can be found in the flowsheet documentation) Outcome: Progressing Problem: Nutrient: Inadequate protein-energy intake Goal: Total intake will meet estimated nutrient needs Outcome: Progressing Problem: Oxygenation/Respiratory Function Goal: Patent airway Outcome: Progressing Goal: Respiratory rate/effort will be within specified limits Outcome: Progressing Problem: Care of Tracheostomy Goal: Tracheostomy tube and site will be maintained Outcome: Progressing Problem: Potential for Infection Goal: Insertion site without signs/symptoms of infection Outcome: Progressing Problem: Knowledge Deficit Goal: Patient/Significant other demonstrates understanding of Tracheostomy Outcome: Progressing Problem: Communication/Dysarthria Goal: STG - Patient will tolerate PMV trials Outcome: Progressing Problem: Pain/Discomfort Goal: Patient exhibits reduced pain/discomfort as evidenced by pain scores Outcome: Progressing Goal: Patient uses pharmacological and non-pharmacological pain management strategies. Outcome: Progressing Goal: Patient verbalizes acceptable level of pain relief and ability to engage in desired activity. Outcome: Progressing Problem: Skin Integrity Goal: Skin integrity is maintained or improved Outcome: Progressing * Carole Shea RN - 10/16/2022 4:33 PM CDT Patient oxygen demands has increased and patient requires more suctioning. Will continue to monitoroxygen demands and suctioned as needed. * Rinku Kinney MD - 10/16/2022 3:08 PM CDT Hospitalist Progress Note HPI 62 year old male with past medical history significant for CVA w/??left??sided residual deficits, seizure disorder, dementia, dysphagia w/ recurrent aspiration s/p PEG, zenker divertiuculum s/p diverticulectomy 2022, chronic hypoxic respiratory faiure s/p trach 06/2022, PVD s/p L AKA c/b nonhealing foot wound, HTN who presented to [facility] 08/28 with shortness of breath Subjective: Patient had transient desaturation from 97% to 92% which improved rapidly with tracheal suctioning. Patient family members at bedside including sister who is patient's POA. Family felt like his breathing is getting worse. I had extensive discussion with the family about overall care. Objective: Blood pressure 158/86, pulse 109, temperature 97.7 ??F (36.5 ??C), temperature source Axillary, resp. rate 20, height 1.829 m (6' 0.01 ), weight 54.9 kg (121 lb), SpO2 95 %. Gen: Not very interactive. HEENT: Trach in place. RESP: Clear to auscultation CV: Nl S1 and S2 GI: G tube present EXT: left AKA KRISTIAN reviewed Relevant labs reviewed Relevant imaging reviewed Assessment/Plan: 1. Chronic hypoxic respiratory failure: s/p trach, continue trach care, continue saline nebs q6hrs,xopenex nebs q6 hours, scopolamine patch. CXR done today 10/16 showed normal lung parenchyma and isunchanged from before. On review of VS, O2 requirement largely unchanged in last 2 weeks. No further change in treatment/evaluation at this time. Continue to monitor. ?? 2. Seizure disorder: continue??lacosamide, Keppra, Depakote and clobazam, seizure precaution ?? 3. Hx of CVA: continue lipitor ?? 4. PVD: s/p left AKA, continue lipitor ?? 5. Staph??capitis and pseudomonas bacteremia: completed meropenem 09/17 6. Pressure ulcer:??on right heel, wound care?? 7. Zenker diverticulum s/p diverticulectomy 8. Hyperlipidemia, continue Lipitor?? 9. Normocytic anemia: monitor 10. GOC: Appropriate to involve palliative care. However, it does not seem like the family/POA is open to the discussion. Will continue to address this ?? Diet: tube feedings. DVT prophylaxis: lovenox Code status: full code Disposition: Awaiting disposition to [place]. Rinku Kinney MD [facility] Medicine 10/16/2022 Feel free to text page me through [employer], login [email or web address] * Carole Shea RN - 10/16/2022 3:03 PM CDT Patient family is concerned about his oxygen demand. Informed them that he he been requiring more suctioning then usual. Patient has been a tachycardic as well. Patient family had a talk with the provider who ordered an X-RAY came back clear and shows no infiltration. * Ankur Shen RN - 10/15/2022 11:45 PM CDT Problem: Fall Risk Goal: Fall risk and fall related injury risk are minimized (interventions related to the fall risk can be found in the flowsheet documentation) Outcome: Progressing * Artur Mcgraw MD - 10/15/2022 2:01 PM CDT [facility] Medicine Progress Note Name: Bi Tabor Age: [age] year old Room: 7704/1 Date Admitted: 08/28/2022 Chief Complaint: Shortness of breath Subjective: Patient was seen and examined at bedside. Denies chest pain, shortness of breath,cough, headaches, dizziness. States he feels really good today. Objective: Vitals: 10/15/22 0808 10/15/22 0949 10/15/22 1000 10/15/22 1305 BP: 148/81 Pulse: 92 93 94 91 Resp: 20 20 20 15 Temp: 97.5 ??F (36.4 ??C) SpO2: 96% 96% 95% 100% Weight: Height: Estimated body mass index is 16.41 kg/m?? as calculated from the following: Height as of this encounter: 1.829 m (6' 0.01 ). Weight as of this encounter: 54.9 kg (121 lb). Physical Exam: General: Alert, cooperative HEENT: NC,AT, trach in place Neck: Supple, no JVD Heart: RRR, normal S1 and S2 Lungs:??clear breath sounds Abdomen: Soft, non-tender, normal bowel sounds Extremities: No edema Pulses: 2+ and symmetric MSKL: Normal bulk and tone. Intact ROM in all extremities Neuro: Alert??and oriented x3 Labs: Recent Labs Component Name 10/14/22 0553 10/12/22 0716 10/09/22 1204 08/29/22 0537 08/28/22 2224 WBC 7.0 - 9.4 - - HGB 12.7 - 12.6 - - HCT 38.1 - 38.6 - - NA 140 - 140 - 142 CL 106 - 108* - 111* BUN 15 - 14 - 11 CREATININE 0.43* - 0.39* - 0.50* PHOS 3.2 - - - 3.5 CALCIUM 10.2 - 9.8 - 8.8 PT - - - - 15.2* INR - - - - 1.2 AST - - 15 - 13 ALT - - 10 - 5 ALKPHOS - - 83 - 67 TBILI - - 0.1* - 0.6 - = values in this interval not displayed. Imaging: No results found. History of CVA (cerebrovascular accident) (POA: Yes) Paroxysmal tachycardia, unspecified (CMS/HCC) (POA: Yes) Sepsis without acute organ dysfunction (CMS/HCC) (POA: Yes) Protein calorie malnutrition (CMS/HCC) (POA: Yes) Tachypnea (POA: Yes) Chronic respiratory failure with hypoxia (CMS/HCC) (POA: Yes) Assessment and Plan: 62 year old male with past medical history significant for CVA w/??left??sided residual deficits, seizure disorder, dementia, dysphagia w/ recurrent aspiration s/p PEG, zenker divertiuculum s/p diverticulectomy 2022, chronic hypoxic respiratory faiure s/p trach 06/2022, PVD s/p L AKA c/b nonhealing foot wound, HTN who presented to [facility] 08/28 with shortness of breath 1. Chronic hypoxic respiratory failure: s/p trach, continue trach care, continue saline nebs q6hrs,xopenex nebs q6 hours, scopolamine patch? 2. Seizure disorder: continue??lacosamide, Keppra, Depakote and clobazam, seizure precaution ?? 3. Hx of CVA: continue lipitor ?? 4. PVD: s/p left AKA, continue lipitor ?? 5. Staph??capitis bacteremia: completed meropenem 09/17 ?? 6. Pseudomonal pneumonia:??completed Meropenem 09/17 ?? 7. Pressure ulcer:??on right heel, wound care? 8. Zenker diverticulum s/p diverticulectomy ?? 9. Hyperlipidemia, continue Lipitor? 10. Normocytic anemia: monitor ?? 11. HTN: not on antihypertensive Lines:??PIV Disposition: Inpatient Diet:??tube feed Prophylaxis:??lovenox Code: Full Artur Mcgraw MD Hospitalist, Internal Medicine * Carmelina Gould RN - 10/15/2022 12:38 PM CDT Problem: Ineffective Airway Clearance Goal: Patent airway Outcome: Progressing Problem: Fall Risk Goal: Fall risk and fall related injury risk are minimized (interventions related to the fall risk can be found in the flowsheet documentation) Outcome: Progressing Problem: Nutrient: Inadequate protein-energy intake Goal: Total intake will meet estimated nutrient needs Outcome: Progressing Problem: Oxygenation/Respiratory Function Goal: Patent airway Outcome: Progressing * Ivy Mata RN - 10/15/2022 9:58 AM CDT Case Management Progress Note Pt is new to this CM's caseload as of 10/15/2022. Continue to monitor until dc or transfer. Anticipated level of care at discharge: Custodial - Medicaid Readmit Risk: 27 Anticipated Discharge Date: 10/19/22 Transportation at Discharge: Ambulance Transportation to MD: Medicaid provider Equipment at Home: Equipment at Home: Facility Equipment Additional DME needed: None noted at this time Pharmacy benefit: No Comments: Previous CM reached out to covering to assist with transfer to NH. If [facility] not[facility], family wants [facility] as a backup option. Continue to follow for safe dc. Ivy Mata RN, BSN Vice President Underwriting [phone] * Mara Brewer RN - 10/15/2022 3:46 AM CDT Problem: Impaired Gas Exchange Goal: Resp rate/effort will be within specified limits Outcome: Progressing Problem: Ineffective Airway Clearance Goal: Patent airway Outcome: Progressing Problem: Fall Risk Goal: Fall risk and fall related injury risk are minimized (interventions related to the fall risk can be found in the flowsheet documentation) Outcome: Progressing Problem: Oxygenation/Respiratory Function Goal: Patent airway Outcome: Progressing Goal: Respiratory rate/effort will be within specified limits Outcome: Progressing Problem: Care of Tracheostomy Goal: Tracheostomy tube and site will be maintained Outcome: Progressing Problem: Potential for Infection Goal: Insertion site without signs/symptoms of infection Outcome: Progressing Problem: Pain/Discomfort Goal: Patient exhibits reduced pain/discomfort as evidenced by pain scores Outcome: Progressing Goal: Patient uses pharmacological and non-pharmacological pain management strategies. Outcome: Progressing Goal: Patient verbalizes acceptable level of pain relief and ability to engage in desired activity. Outcome: Progressing * Suzy Farmer RN - 10/14/2022 1:19 PM CDT Care Coordination Progress Note Anticipated level of care at discharge: Custodial - Medicaid Discharge Plan: SNF. CM asked M ASHWIN Galarza to assist with dc plan with [facility] CM spoke with sister and if [facility] is unable to accept she would [facility]. SW updated READMISSION RISK SCORE is 27 at 1:19 PM 10/14/2022. Anticipated Discharge Date: 10/15/22 Patient/Family provided with list of resources? Yes Preferred Provider / High Quality Network List given?: Yes Reason for provider choice: Pt. choice - previous provider Family Support (Name and Phone): Extended Emergency Contact Information Primary Emergency Contact: Adriane Pearson Mobile Relation: Sister Shop Mechanic needed? No Secondary Emergency Contact: Amarjit Tabor [facility] Relation: Brother Patient is alert & orientated or has capacity for decision making: Yes If No , Legal or Designated Decision Maker: N/A Transportation at Discharge: Ambulance Equipment at Home: Equipment at Home: Facility Equipment List DME patient requires but does not have: DME Provider: Medication affordability concerns: No Follow Up Appointment: Transportation to [place]: Auth Number (if required): NH: DME: Medications: Transportation: Name: Suzy Farmer RN Phone: [phone] * Venessa Rosado DO - 10/14/2022 9:26 AM CDT Hospital Medicine Progress Note Name: Bi Tabor Age: [age] year old Room: [facility] Date Admitted: 08/28/2022 Chief Complaint: Shortness of breath Subjective: 24h- Pt continues to have upper airway secretions with no indication of pain or respiratory distress. Has been afebrile for >24h. No acute events overnight. Objective: Vitals: 10/13/22201010/14/22 0013 10/14/22 0449 10/14/22 0729 BP: 118/68 129/81 119/82 138/82 Pulse: 102 97 98 93 Resp: 16 Temp: 97.9 ??F (36.6 ??C) 97.7 ??F (36.5 ??C) 97.3 ??F (36.3 ??C) 97.2 ??F (36.2 ??C) SpO2: 93% 95% 95% 95% Weight: Height: Estimated body mass index is 16.41 kg/m?? as calculated from the following: Height as of this encounter: 1.829 m (6' 0.01 ). Weight as of this encounter: 54.9 kg (121 lb). Physical Exam: General: ANAD HEENT: NC,AT, trach in place Neck: Supple, no JVD Heart: RRR, normal S1 and S2 Lungs:??Coarse breath sounds throughout Abdomen: Soft, non-tender, normal bowel sounds Extremities: No edema Pulses: 2+ and symmetric MSKL: Normal bulk and tone. Intact ROM in all extremities Neuro: Alert??and oriented x3 answering yes and no questions Labs: Recent Labs Component Name 10/14/22 0553 10/12/22 0716 10/09/22 1204 08/29/22 0537 08/28/22 2224 WBC 7.0 - 9.4 - - HGB 12.7 - 12.6 - - HCT 38.1 - 38.6 - - NA 140 - 140 - 142 CL 106 - 108* - 111* BUN 15 - 14 - 11 CREATININE 0.43* - 0.39* - 0.50* PHOS 3.2 - - - 3.5 CALCIUM 10.2 - 9.8 - 8.8 PT - - - - 15.2* INR - - - - 1.2 AST - - 15 - 13 ALT - - 10 - 5 ALKPHOS - - 83 - 67 TBILI - - 0.1* - 0.6 - = values in this interval not displayed. Imaging: No results found. History of CVA (cerebrovascular accident) (POA: Yes) Paroxysmal tachycardia, unspecified (CMS/HCC) (POA: Yes) Sepsis without acute organ dysfunction (CMS/HCC) (POA: Yes) Protein calorie malnutrition (CMS/HCC) (POA: Yes) Tachypnea (POA: Yes) Chronic respiratory failure with hypoxia (CMS/HCC) (POA: Yes) Assessment and Plan: 62 year old male with past medical history significant for CVA w/??left??sided residual deficits, seizure disorder, dementia, dysphagia w/ recurrent aspiration s/p PEG, zenker divertiuculum s/p diverticulectomy 2022, chronic hypoxic respiratory faiure s/p trach 06/2022, PVD s/p L AKA c/b nonhealing foot wound, HTN who presented to [facility] 08/28 with shortness of breath. Chronic hypoxic respiratory failure: s/p trach Abundant upper airway secretions Fever- resolved Concern for ongoing aspiration events - continue trach care - continue saline nebs q6hrs - xopenex nebs q6 hours - scopolamine patch - Holding ABX at this time will initiate if sustained fever is noted - Repeat CXR on personally reviewed on with no evidence of aspiration, pleural fluid or consolidation with improved CXR noted. ?? Seizure disorder - continue??lacosamide, Keppra, Depakote and clobazam - seizure precaution ?? Hx of CVA - continue lipitor ?? PVD - s/p left AKA - continue lipitor ?? Staph??capitis bacteremia: completed meropenem 09/17 Pseudomonal pneumonia:??completed Meropenem 09/17 ?? Pressure ulcer - ??on right heel, wound care? Zenker diverticulum s/p diverticulectomy ?? HLD - continue Lipitor? Normocytic anemia: monitor ?? HTN: not on antihypertensive Lines:??PIV Disposition: Inpatient with NH placement pending Diet:??tube feed Prophylaxis:??lovenox Code: Full Venessa Rosado DO Hospitalist, Internal Medicine * Carole Shea RN - 10/14/2022 7:39 AM CDT Assumed care of patient. Patient oxygen saturation was at 97% at the time. Patient stable and had no complains of pain as of now. * Rg Nicolas RN - 10/14/2022 5:03 AM CDT Problem: Impaired Gas Exchange Goal: Resp rate/effort will be within specified limits 10/14/2022 050 by Rg Nicolas RN Outcome: Progressing 10/14/2022 050 by Rg Nicolas RN Outcome: Progressing Problem: Ineffective Airway Clearance Goal: Patent airway 10/14/2022 050 by Rg Nicolas RN Outcome: Progressing 10/14/2022 050 by Rg Nicolas RN Outcome: Progressing Problem: Fall Risk Goal: Fall risk and fall related injury risk are minimized (interventions related to the fall risk can be found in the flowsheet documentation) 10/14/2022 050 by Rg Nicolas RN Outcome: Progressing 10/14/2022 050 by Rg Nicolas RN Outcome: Progressing Problem: Nutrient: Inadequate protein-energy intake Goal: Total intake will meet estimated nutrient needs 10/14/2022 050 by Rg Nicolas RN Outcome: Progressing 10/14/2022 050 by Rg Nicolas RN Outcome: Progressing Problem: Oxygenation/Respiratory Function Goal: Patent airway 10/14/2022 050 by Rg Nicolas RN Outcome: Progressing 10/14/2022 050 by Rg Nicolas RN Outcome: Progressing Goal: Respiratory rate/effort will be within specified limits 10/14/2022 050 by Rg Nicolas RN Outcome: Progressing 10/14/2022 050 by Rg Nicolas RN Outcome: Progressing Problem: Care of Tracheostomy Goal: Tracheostomy tube and site will be maintained 10/14/2022 050 by Rg Nicolas RN Outcome: Progressing 10/14/2022 050 by Rg Nicolas RN Outcome: Progressing Problem: Potential for Infection Goal: Insertion site without signs/symptoms of infection 10/14/2022502 by Rg Nicolas RN Outcome: Progressing 10/14/2022502 by Rg Nicolas RN Outcome: Progressing Problem: Knowledge Deficit Goal: Patient/Significant other demonstrates understanding of Tracheostomy 10/14/2022502 by Rg Nicolas RN Outcome: Progressing 10/14/2022502 by Rg Nicolas RN Outcome: Progressing Problem: Communication/Dysarthria Goal: STG - Patient will tolerate PMV trials 10/14/2022502 by Rg Nicolas RN Outcome: Progressing 10/14/2022502 by Rg Nicolas RN Outcome: Progressing Problem: Pain/Discomfort Goal: Patient exhibits reduced pain/discomfort as evidenced by pain scores 10/14/2022502 by Rg Nicolas RN Outcome: Progressing 10/14/2022502 by Rg Nicolas RN Outcome: Progressing Goal: Patient uses pharmacological and non-pharmacological pain management strategies. 10/14/2022502 by Rg Nicolas RN Outcome: Progressing 10/14/2022502 by Rg Nicolas RN Outcome: Progressing Goal: Patient verbalizes acceptable level of pain relief and ability to engage in desired activity. 10/14/2022502 by Rg Nicolas RN Outcome: Progressing 10/14/2022502 by Rg Nicolas RN Outcome: Progressing Problem: Skin Integrity Goal: Skin integrity is maintained or improved 10/14/2022502 by Rg Nicolas RN Outcome: Progressing 10/14/2022502 by Rg Nicolas RN Outcome: Progressing * Rg Nicolas RN - 10/14/2022 5:03 AM CDT Problem: Impaired Gas Exchange Goal: Resp rate/effort will be within specified limits Outcome: Progressing Problem: Ineffective Airway Clearance Goal: Patent airway Outcome: Progressing Problem: Fall Risk Goal: Fall risk and fall related injury risk are minimized (interventions related to the fall risk can be found in the flowsheet documentation) Outcome: Progressing Problem: Nutrient: Inadequate protein-energy intake Goal: Total intake will meet estimated nutrient needs Outcome: Progressing Problem: Oxygenation/Respiratory Function Goal: Patent airway Outcome: Progressing Goal: Respiratory rate/effort will be within specified limits Outcome: Progressing Problem: Care of Tracheostomy Goal: Tracheostomy tube and site will be maintained Outcome: Progressing Problem: Potential for Infection Goal: Insertion site without signs/symptoms of infection Outcome: Progressing Problem: Knowledge Deficit Goal: Patient/Significant other demonstrates understanding of Tracheostomy Outcome: Progressing Problem: Communication/Dysarthria Goal: STG - Patient will tolerate PMV trials Outcome: Progressing Problem: Pain/Discomfort Goal: Patient exhibits reduced pain/discomfort as evidenced by pain scores Outcome: Progressing Goal: Patient uses pharmacological and non-pharmacological pain management strategies. Outcome: Progressing Goal: Patient verbalizes acceptable level of pain relief and ability to engage in desired activity. Outcome: Progressing Problem: Skin Integrity Goal: Skin integrity is maintained or improved Outcome: Progressing * Ana Castro RD/NOLAN - 10/13/2022 1:17 PM CDT Nutrition Re-Assessment Brief Synopsis: Patient is diagnosed with severe malnutrition; Specific criteria can be found in assessment below Nutrition Plan: NPO + TF Tube Feeding Recommendations: Continuous: TwoCal HN @ 55 ml/hr. Provides 2640 kcal, 110 g pro, 287 g CHO, and 924 ml free water. +300 ml q4 hrs free water flush or per MD if not on additional fluids Recommendations to Physician: See TF recs above Code for severe malnutrition Comments: Pt scheduled for reassessment. Pt receiving TF of TwoCal HN at goal via PEG. 0mL gastric output reported 10/07; 10mL residuals reported yesterday. No changes to nutrition plan at this time. LBM reported 10/12. Will continue to follow. 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 Diet order accuracy Current diet order: NPO Current tube feeding order: Two Bruno HN at 55mL/hr Nutrition recommendation: agree with current nutrition order P.O.Intake for the past 48 hrs:No data recorded Supplement(s) Consumed- Last 48 hours None Food Allergies: No known food allergies GI Concerns: None Chewing/Swallowing: Dysphagia Pain affecting intake: No Admission weight: Weight: 63.5 kg (140 lb) (08/28/22 1101) Recent Weights/Methods 09/21/2022 0400 09/24/2022 0400 09/26/2022 2112 10/02/2022 0400 10/05/2022 0445 10/05/2022 0506 10/11/2022 0400 10/12/2022 0400 Weight: 63.1 kg (139 lb 3.2 oz) 61.5 kg (135 lb 8 oz) 61.5 kg (135 lb 9.6 oz) 60.8 kg (134 lb) -- 54 kg (119 lb) 54.4 kg (120 lb) 54.9 kg (121 lb) Weight Method (Utilize Scales): -- -- -- Bedscale -- Bedscale Bedscale Bedscale Wt Comments: Weight appears to be trending back up after increasing kcal/protein intake from TF; monitoring Height: 182.9 cm (6' 0.01 ) IBW/lb (Calculated) Male: [id number] , Laboratory values reviewed. Recent Labs Component Name 10/12/22 0716 10/09/22 1204 10/08/22 0624 08/30/22 0039 08/28/22 2224 08/28/22 1251 BUN 12 14 19 - 11 12 CREATININE 0.50* 0.39* 0.45* - 0.50* 0.51* NA 141 140 138 - 142 139 POTASSIUM 4.2 4.0 4.3 - 3.9 4.5 CL 106 108* 105 - 111* 103 CO2 25 24 28 - 24 27 GLUCOSE 86 115 74 - 86 100 CALCIUM 10.1 9.8 9.7 - 8.8 9.8 PROT - 6.9 - - 6.0 7.5 ALB - 3.0* - - 2.0* 2.5* TBILI - 0.1* - - 0.6 0.5 ALKPHOS - 83 - - 67 88 ALT - 10 - - 5 6 AST - 15 - - 13 14 ANIONGAP 14 12 9 - 11 14 BCR 24* 36* 42* - 22 24* OSMOLALITY 291 291 287 - 293 288 AGRATIO - 0.8* - - 0.5* 0.5* EGFR >90 >90 >90 - >90 >90 - = values in this interval not displayed. Medications noted. Current Facility-Administered Medications Medication ??? acetaminophen (Tylenol) tablet 650 mg ??? artificial tears ophthalmic ointment ??? atorvastatin (Lipitor) tablet 40 mg ??? chlorhexidine (Peridex) 0.12 % oral solution 15 mL ??? cloBAZam (Onfi) tablet 20 mg ??? dextrose 10 % IV bolus Or ??? dextrose 10 % IV bolus ??? divalproex sprinkle (Depakote Sprinkle) capsule 500 mg ??? enoxaparin (Lovenox) injection 40 mg ??? glucagon (Glucagen) injection 1 mg ??? glucose (Diabetic Use) (Dex4 Glucose) oral liquid ??? glucose (Diabetic Use) oral gel ??? glucose chew tablet 4 tablet ??? guaiFENesin (Robitussin) solution 10 mL ??? lacosamide (Vimpat) tablet 200 mg ??? levalbuterol (Xopenex) nebulizer solution 1.25 mg ??? levETIRAcetam (Keppra) tablet 2,000 mg ??? scopolamine (Transderm-Scop) 1 patch And ??? scopolamine patch placement confirmation ??? senna-docusate (Senokot-S) tablet 1 tablet ??? sodium chloride (Inhalant) 7 % nebulizer solution 4 mL Skin/Wound: WDL Estimated Energy Needs: KCAL: 0430-5386 (35-45kcal/kg (ABW)) Protein (g): 110-140g (20% estimated kcal needs) Fluid (ml): 1ml/kcal Needs based on: Kcal/kg- (Comment) (ABW 61.5kg) Recommended Access Route: TF Malnutrition Etiology: Malnutrition in the context of: chronic disease, Malnutrition Severity: Severe BMI: Body mass index is 16.41 kg/m??. GI Concerns: None Nutrition Focused Physical Assessment: Loss of Subcutaneous Fat Orbital: Severe Buccal: Severe Tricep: Severe Muscle Loss Temples (Temporalis Muscle): Severe Clavicles (Pectoralis & Deltoids): Severe Shoulders (Deltoids): Severe Nutrition Care Process (2) Nutrition Diagnostic Statement (2): Malnutrition related to:: inadequate protein-energy intake as evidenced by:: unintentional weight loss;BMI less than 19;loss of subcutaneous fat;loss of muscle mass Nutrition Diagnostic Statement Progress: New diagnostic statement established Nutrition Intervention: Enteral nutrition: Monitoring: TF, BM, labs, meds, weight Evaluation: Nutrition Goal: Total intake will meet estimated nutrient needs Nutrition Goal Timeframe: Throughout stay Nutrition Goal Progress: Continue with current goal [id number] * Venessa Rosado DO - 10/13/2022 12:41 PM CDT Hospital Medicine Progress Note Name: Bi Tabor Age: [age] year old Room: [facility]/ Date Admitted: 08/28/2022 Chief Complaint: Shortness of breath Subjective: 24h- Pt reports no pain or respiratory distress without any acute events overnight. He is noted to have some upper airway secretions with strong cough. Pt did have Tm 100.8F in the past 24 hours. Objective: Vitals: 10/13/22 0506 10/13/22 0805 10/13/22 1131 10/13/22 1152 BP: 132/72 123/77 Pulse: 109 (!) 112 95 96 Resp: 18 16 16 18 Temp: 98.4 ??F (36.9 ??C) SpO2: 96% 92% 96% 99% Weight: Height: Estimated body mass index is 16.41 kg/m?? as calculated from the following: Height as of this encounter: 1.829 m (6' 0.01 ). Weight as of this encounter: 54.9 kg (121 lb). Physical Exam: General: ANAD HEENT: NC,AT, trach in place Neck: Supple, no JVD Heart: RRR, normal S1 and S2 Lungs:??Coarse breath sounds throughout Abdomen: Soft, non-tender, normal bowel sounds Extremities: No edema Pulses: 2+ and symmetric MSKL: Normal bulk and tone. Intact ROM in all extremities Neuro: Alert??and oriented x3 Labs: Recent Labs Component Name 10/12/22 0716 10/09/22 1204 08/29/22 0537 08/28/22 2224 WBC 9.2 9.4 - - HGB 12.1 12.6 - - HCT 36.0 38.6 - - NA 141 140 - 142 CL 106 108* - 111* BUN 12 14 - 11 CREATININE 0.50* 0.39* - 0.50* PHOS 3.4 - - 3.5 CALCIUM 10.1 9.8 - 8.8 PT - - - 15.2* INR - - - 1.2 AST - 15 - 13 ALT - 10 - 5 ALKPHOS - 83 - 67 TBILI - 0.1* - 0.6 - = values in this interval not displayed. Imaging: No results found. History of CVA (cerebrovascular accident) (POA: Yes) Paroxysmal tachycardia, unspecified (CMS/HCC) (POA: Yes) Sepsis without acute organ dysfunction (CMS/HCC) (POA: Yes) Protein calorie malnutrition (CMS/HCC) (POA: Yes) Tachypnea (POA: Yes) Chronic respiratory failure with hypoxia (CMS/HCC) (POA: Yes) Assessment and Plan: 62 year old male with past medical history significant for CVA w/??left??sided residual deficits, seizure disorder, dementia, dysphagia w/ recurrent aspiration s/p PEG, zenker divertiuculum s/p diverticulectomy 2022, chronic hypoxic respiratory faiure s/p trach 06/2022, PVD s/p L AKA c/b nonhealing foot wound, HTN who presented to [facility] 08/28 with shortness of breath. Chronic hypoxic respiratory failure: s/p trach Abundant upper airway secretions Fever Concern for ongoing aspiration events - continue trach care - continue saline nebs q6hrs - xopenex nebs q6 hours - scopolamine patch - Holding ABX at this time will initiate if sustained fever is noted - Repeat CXR on personally reviewed on with no evidence of aspiration, pleural fluid or consolidation with improved CXR noted. ?? Seizure disorder - continue??lacosamide, Keppra, Depakote and clobazam - seizure precaution ?? Hx of CVA - continue lipitor ?? PVD - s/p left AKA - continue lipitor ?? Staph??capitis bacteremia: completed meropenem 09/17 Pseudomonal pneumonia:??completed Meropenem 09/17 ?? Pressure ulcer - ??on right heel, wound care? Zenker diverticulum s/p diverticulectomy ?? HLD - continue Lipitor? Normocytic anemia: monitor ?? HTN: not on antihypertensive Lines:??PIV Disposition: Inpatient with NH placement pending Diet:??tube feed Prophylaxis:??lovenox Code: Full Venessa Rosado DO Hospitalist, Internal Medicine * Coty Cobian RN - 10/13/2022 11:59 AM CDT Problem: Impaired Gas Exchange Goal: Resp rate/effort will be within specified limits Outcome: Progressing Problem: Ineffective Airway Clearance Goal: Patent airway Outcome: Progressing Problem: Fall Risk Goal: Fall risk and fall related injury risk are minimized (interventions related to the fall risk can be found in the flowsheet documentation) Outcome: Progressing Problem: Nutrient: Inadequate protein-energy intake Goal: Total intake will meet estimated nutrient needs Outcome: Progressing Problem: Oxygenation/Respiratory Function Goal: Patent airway Outcome: Progressing Goal: Respiratory rate/effort will be within specified limits Outcome: Progressing * Suzy Farmer RN - 10/13/2022 11:20 AM CDT Care Coordination Progress Note Anticipated level of care at discharge: Custodial - Medicaid Discharge Plan: SNF. [facility] [place] [facility] will need updates. SW notified READMISSION RISK SCORE is 27 at 11:20 AM 10/13/2022. Anticipated Discharge Date: 10/15/22 Patient/Family provided with list of resources? Yes Preferred Provider / High Quality Network List given?: Yes Reason for provider choice: Pt. choice - previous provider Family Support (Name and Phone): Extended Emergency Contact Information Primary Emergency Contact: Adriane Pearson Mobile Relation: Sister Shop Mechanic needed? No Secondary Emergency Contact: Amarjit Tabor [facility] Relation: Brother Patient is alert & orientated or has capacity for decision making: Yes If No , Legal or Designated Decision Maker: N/A Transportation at Discharge: Ambulance Equipment at Home: Equipment at Home: Facility Equipment List DME patient requires but does not have: DME Provider: Medication affordability concerns: No Follow Up Appointment: Transportation to MD: Auth Number (if required): [place]: DME: Medications: Transportation: Name: Suzy Farmer RN Phone: [phone] * Yessica Hall MSW - 10/13/2022 10:11 AM CDT New Facility Referral Followup Level of Care (SNF/Medicaid NH/Rehab/Penitentiary Care/LTACH): SW following pt for LTC placement. [facility] considering. ASHWIN spoke with Flaquita in admission and she said she will get back with the information on pt from the team. ASHWIN was asked to speak with Alma Flowers at [phone] SW spoke with Maryan at [facility] and per facility declined due New trach. Facility would like Trach to be at least 6 months old. ASHWIN will check with other facilities: [facility] Addendum: 12:40 pm: ASHWIN sent updated notes to [facility] and Carl[facility] Simmons. Additional referral sent. Pt has [place] Medicaid. Addendum: 03:13 pm: ASHWIN received a call from Abimbola from [facility]. Per Abimbola she will have to discuss with the team of they can accept to any of the [facility] facilities. Pt was in one of their facilities before and pt's sister created issues while pt was there. Abimbola unsure if any of their facilities ( they have 8 facilities) would be able to accept pt, but she would try. Extended Emergency Contact Information Primary Emergency Contact: Adriane Pearson Mobile Relation: Sister Shop Mechanic needed? No Secondary Emergency Contact: Amarjit Tabor [facility] Relation: Brother Referrals initiated: Continued Care and Services - Admitted Since 08/28/2022 Destination Service Provider Request Status Selected Services Address Phone Fax Patient Preferred [facility] Considering N/A [address] [facility] [address] [phone] -- [facility] Pending - Request Sent N/A [address] [facility] [address] [phone] -- [facility] Pending - Request Sent N/A [address] [facility] [facility] [address] [phone] -- [facility] [place] ([facility]) Pending - Request Sent N/A [address] [place] [address] [phone] -- [facility] Pending - Request Sent N/A [address] [place] [phone] -- [facility] Pending - Request Sent N/A [address] [facility] [phone] -- [facility] Pending - Request Sent N/A [address] [address] [phone] -- [facility] Pending - Request Sent N/A [address] [facility] [phone] -- [facility] Pending - Request Sent N/A [address] [facility] [phone] -- [facility] Pending - Request Sent N/A [address] [place] [phone] -- [facility] Pending - Request Sent N/A [address] [facility] [address] [phone] -- [facility] Pending - Request Sent N/A [address] [facility] [address] [phone] -- [facility] Pending - Request Sent N/A [address] [facility] [phone] -- Current Capacity last updated by Yu Nguyễn on 04/21/2022 1237 [address] [facility]Pending - Request Sent N/A [address] [facility] [phone] -- Current Capacity last updated by Yu Nguyễn on 04/21/2022 1237 [address] [facility] Declined Facility cannot provide for patient's needs, Acuity too high N/A [address] [facility] [phone] -- [facility] Declined Facility cannot provide for patient's needs N/A [address] [phone] -- [facility] Declined N/A [address] [address] [phone] -- [facility] Declined Facility cannot provide for patient's needs, Thank you for this referral. N/A [address] [facility] [address] [phone] -- Internal Comment last updated by Gaurav Juarez 10/05/2022 1055 SW called and left VM for Chanel in admissions [phone] Selected Continued Care - Prior Encounters Includes continued care and service providers with selected services from prior encounters from 05/30/2022 to 10/13/2022 Discharged on 06/03/2022 Admission date: 05/30/2022 - Discharge disposition: [facility] Facility Destination Service Provider Selected Services Address Phone Fax [facility] [address] [facility] [phone] -- If Medicare-3 day qualifying stay verified: No monitoring facility responses Comments/changes: Name: CLARITA Fuentes Phone: SW remotely assisting * Rg Nicolas RN - 10/13/2022 3:49 AM CDT Problem: Impaired Gas Exchange Goal: Resp rate/effort will be within specified limits Outcome: Progressing Problem: Ineffective Airway Clearance Goal: Patent airway Outcome: Progressing Problem: Fall Risk Goal: Fall risk and fall related injury risk are minimized (interventions related to the fall risk can be found in the flowsheet documentation) Outcome: Progressing Problem: Nutrient: Inadequate protein-energy intake Goal: Total intake will meet estimated nutrient needs Outcome: Progressing Problem: Oxygenation/Respiratory Function Goal: Patent airway Outcome: Progressing Goal: Respiratory rate/effort will be within specified limits Outcome: Progressing Problem: Care of Tracheostomy Goal: Tracheostomy tube and site will be maintained Outcome: Progressing Problem: Potential for Infection Goal: Insertion site without signs/symptoms of infection Outcome: Progressing Problem: Knowledge Deficit Goal: Patient/Significant other demonstrates understanding of Tracheostomy Outcome: Progressing Problem: Communication/Dysarthria Goal: STG - Patient will tolerate PMV trials Outcome: Progressing Problem: Pain/Discomfort Goal: Patient exhibits reduced pain/discomfort as evidenced by pain scores Outcome: Progressing Goal: Patient uses pharmacological and non-pharmacological pain management strategies. Outcome: Progressing Goal: Patient verbalizes acceptable level of pain relief and ability to engage in desired activity. Outcome: Progressing Problem: Skin Integrity Goal: Skin integrity is maintained or improved Outcome: Progressing * Venessa Rosado, DO - 10/12/2022 2:47 PM CDT Hospital Medicine Progress Note Name: Bi Tabor Age: [age] year old Room: 7704/1 Date Admitted: 08/28/2022 Chief Complaint: Shortness of breath Subjective: 24h- Pt reports no pain or respiratory distress without any acute events overnight. He is noted to have some upper airway secretions with strong cough. Objective: Vitals: 10/12/22 0400 10/12/22 0459 10/12/22 0750 10/12/22 1040 BP: 116/75 130/84 146/85 Pulse: (!) 110 96 (!) 117 Resp: 16 20 Temp: 98.2 ??F (36.8 ??C) 98.2 ??F (36.8 ??C) 98 ??F (36.7 ??C) SpO2: 96% 99% 95% Weight: 54.9 kg (121 lb) Height: Estimated body mass index is 16.41 kg/m?? as calculated from the following: Height as of this encounter: 1.829 m (6' 0.01 ). Weight as of this encounter: 54.9 kg (121 lb). Physical Exam: General: ANAD HEENT: NC,AT, trach in place Neck: Supple, no JVD Heart: RRR, normal S1 and S2 Lungs:??cCoarse upper airway sounds that are improved with cough Abdomen: Soft, non-tender, normal bowel sounds Extremities: No edema Pulses: 2+ and symmetric MSKL: Normal bulk and tone. Intact ROM in all extremities Neuro: Alert??and oriented x3 Labs: Recent Labs Component Name 10/12/22 0716 10/09/22 1204 08/29/22 0537 08/28/22 2224 WBC 9.2 9.4 - - HGB 12.1 12.6 - - HCT 36.0 38.6 - - NA 141 140 - 142 CL 106 108* - 111* BUN 12 14 - 11 CREATININE 0.50* 0.39* - 0.50* PHOS 3.4 - - 3.5 CALCIUM 10.1 9.8 - 8.8 PT - - - 15.2* INR - - - 1.2 AST - 15 - 13 ALT - 10 - 5 ALKPHOS - 83 - 67 TBILI - 0.1* - 0.6 - = values in this interval not displayed. Imaging: No results found. History of CVA (cerebrovascular accident) (POA: Yes) Paroxysmal tachycardia, unspecified (CMS/HCC) (POA: Yes) Sepsis without acute organ dysfunction (CMS/HCC) (POA: Yes) Protein calorie malnutrition (CMS/HCC) (POA: Yes) Tachypnea (POA: Yes) Chronic respiratory failure with hypoxia (CMS/HCC) (POA: Yes) Assessment and Plan: 62 year old male with past medical history significant for CVA w/??left??sided residual deficits, seizure disorder, dementia, dysphagia w/ recurrent aspiration s/p PEG, zenker divertiuculum s/p diverticulectomy 2022, chronic hypoxic respiratory faiure s/p trach 06/2022, PVD s/p L AKA c/b nonhealing foot wound, HTN who presented to [facility] 08/28 with shortness of breath. Chronic hypoxic respiratory failure: s/p trach Abundant upper airway secretions - continue trach care - continue saline nebs q6hrs - xopenex nebs q6 hours - scopolamine patch ?? Seizure disorder - continue??lacosamide, Keppra, Depakote and clobazam - seizure precaution ?? Hx of CVA - continue lipitor ?? PVD - s/p left AKA - continue lipitor ?? Staph??capitis bacteremia: completed meropenem 09/17 Pseudomonal pneumonia:??completed Meropenem 09/17 ?? Pressure ulcer - ??on right heel, wound care? Zenker diverticulum s/p diverticulectomy ?? HLD - continue Lipitor? Normocytic anemia: monitor ?? HTN: not on antihypertensive Lines:??PIV Disposition: Inpatient with NH placement pending Diet:??tube feed Prophylaxis:??lovenox Code: Full Venessa Rosado DO Hospitalist, Internal Medicine * Suzy Farmer RN - 10/12/2022 12:50 PM CDT Care Coordination Progress Note Anticipated level of care at discharge: Custodial - Medicaid Discharge Plan: SNF/ CM received call call from pt . Gave her an updated. SW had left messagewith Maryan with admissions at [facility] [phone]. Awaiting determination. CM will update sister when information becomes available READMISSION RISK SCORE is 27 at 12:50 PM 10/12/2022. Anticipated Discharge Date: 10/15/22 Patient/Family provided with list of resources? Yes Preferred Provider / High Quality Network List given?: Yes Reason for provider choice: Pt. choice - previous provider Family Support (Name and Phone): Extended Emergency Contact Information Primary Emergency Contact: BabakAdriane Mobile Relation: Sister Shop Mechanic needed? No Secondary Emergency Contact: Amarjit Tabor [facility] Relation: Brother Patient is alert & orientated or has capacity for decision making: Yes If No , Legal or Designated Decision Maker: N/A Transportation at Discharge: Ambulance Equipment at Home: Equipment at Home: Facility Equipment List DME patient requires but does not have: DME Provider: Medication affordability concerns: No Follow Up Appointment: Transportation to MD: Auth Number (if required): NH: DME: Medications: Transportation: Name: Suzy Farmer RN Phone: [phone] * Destiney Cruz RN - 10/12/2022 12:09 AM CDT Problem: Impaired Gas Exchange Goal: Resp rate/effort will be within specified limits Outcome: Progressing Problem: Ineffective Airway Clearance Goal: Patent airway Outcome: Progressing Problem: Fall Risk Goal: Fall risk and fall related injury risk are minimized (interventions related to the fall risk can be found in the flowsheet documentation) Outcome: Progressing Problem: Nutrient: Inadequate protein-energy intake Goal: Total intake will meet estimated nutrient needs Outcome: Progressing Problem: Oxygenation/Respiratory Function Goal: Patent airway Outcome: Progressing Goal: Respiratory rate/effort will be within specified limits Outcome: Progressing Problem: Care of Tracheostomy Goal: Tracheostomy tube and site will be maintained Outcome: Progressing Problem: Potential for Infection Goal: Insertion site without signs/symptoms of infection Outcome: Progressing Problem: Knowledge Deficit Goal: Patient/Significant other demonstrates understanding of Tracheostomy Outcome: Progressing Problem: Communication/Dysarthria Goal: STG - Patient will tolerate PMV trials Outcome: Progressing Problem: Pain/Discomfort Goal: Patient exhibits reduced pain/discomfort as evidenced by pain scores Outcome: Progressing Goal: Patient uses pharmacological and non-pharmacological pain management strategies. Outcome: Progressing Goal: Patient verbalizes acceptable level of pain relief and ability to engage in desired activity. Outcome: Progressing Problem: Skin Integrity Goal: Skin integrity is maintained or improved Outcome: Progressing * Artur Mcgraw MD - 10/11/2022 2:07 PM CDT [facility] Medicine Progress Note Name: Bi Tabor Age: [age] year old Room: [facility]/ Date Admitted: 08/28/2022 Chief Complaint: Shortness of breath Subjective: Patient was seen and examined at bedside. Says he feels terrible but is not able to tell me what exactly is the cause for this. Denies chest pain, shortness of breath,cough, headaches, dizziness. Objective: Vitals: 10/11/22 0742 10/11/22 0904 10/11/22 1210 10/11/22 1326 BP: 119/85 119/73 Pulse: 72 86 84 Resp: 18 16 16 Temp: 97.9 ??F (36.6 ??C) SpO2: 97% 99% 97% 98% Weight: Height: Estimated body mass index is 16.27 kg/m?? as calculated from the following: Height as of this encounter: 1.829 m (6' 0.01 ). Weight as of this encounter: 54.4 kg (120 lb). Physical Exam: General: Alert, cooperative HEENT: NC,AT, trach in place Neck: Supple, no JVD Heart: RRR, normal S1 and S2 Lungs:??clear breath sounds Abdomen: Soft, non-tender, normal bowel sounds Extremities: No edema Pulses: 2+ and symmetric MSKL: Normal bulk and tone. Intact ROM in all extremities Neuro: Alert??and oriented x3 Labs: Recent Labs Component Name 10/09/22 1204 10/08/22 0624 08/29/22 0537 08/28/22 2224 WBC 9.4 5.6 - - HGB 12.6 12.5 - - HCT 38.6 38.0 - - NA 140 138 - 142 CL 108* 105 - 111* BUN 14 19 - 11 CREATININE 0.39* 0.45* - 0.50* PHOS - 3.2 - 3.5 CALCIUM 9.8 9.7 - 8.8 PT - - - 15.2* INR - - - 1.2 AST 15 - - 13 ALT 10 - - 5 ALKPHOS 83 - - 67 TBILI 0.1* - - 0.6 - = values in this interval not displayed. Imaging: No results found. History of CVA (cerebrovascular accident) (POA: Yes) Paroxysmal tachycardia, unspecified (CMS/HCC) (POA: Yes) Sepsis without acute organ dysfunction (CMS/HCC) (POA: Yes) Protein calorie malnutrition (CMS/HCC) (POA: Yes) Tachypnea (POA: Yes) Chronic respiratory failure with hypoxia (CMS/HCC) (POA: Yes) Assessment and Plan: 62 year old male with past medical history significant for CVA w/??left??sided residual deficits, seizure disorder, dementia, dysphagia w/ recurrent aspiration s/p PEG, zenker divertiuculum s/p diverticulectomy 2022, chronic hypoxic respiratory faiure s/p trach 06/2022, PVD s/p L AKA c/b nonhealing foot wound, HTN who presented to [facility] 08/28 with shortness of breath 1. Chronic hypoxic respiratory failure: s/p trach, continue trach care, continue saline nebs q6hrs,xopenex nebs q6 hours, scopolamine patch ?? 2. Seizure disorder: continue??lacosamide, Keppra, Depakote and clobazam, seizure precaution ?? 3. Hx of CVA: continue lipitor ?? 4. PVD: s/p left AKA, continue lipitor ?? 5. Staph??capitis bacteremia: completed meropenem 09/17 ?? 6. Pseudomonal pneumonia:??completed Meropenem 09/17 ?? 7. Pressure ulcer:??on right heel, wound care? 8. Zenker diverticulum s/p diverticulectomy ?? 9. Hyperlipidemia, continue Lipitor? 10. Normocytic anemia: monitor ?? 11. HTN: not on antihypertensive Lines:??PIV Disposition: Inpatient Diet:??tube feed Prophylaxis:??lovenox Code: Full Artur Mcgraw MD Hospitalist, Internal Medicine * Maia Hoskins RN - 10/11/2022 11:48 AM CDT Problem: Impaired Gas Exchange Goal: Resp rate/effort will be within specified limits Outcome: Progressing Problem: Ineffective Airway Clearance Goal: Patent airway Outcome: Progressing Problem: Fall Risk Goal: Fall risk and fall related injury risk are minimized (interventions related to the fall risk can be found in the flowsheet documentation) Outcome: Progressing Problem: Nutrient: Inadequate protein-energy intake Goal: Total intake will meet estimated nutrient needs Outcome: Progressing Problem: Oxygenation/Respiratory Function Goal: Patent airway Outcome: Progressing Goal: Respiratory rate/effort will be within specified limits Outcome: Progressing Problem: Care of Tracheostomy Goal: Tracheostomy tube and site will be maintained Outcome: Progressing Problem: Potential for Infection Goal: Insertion site without signs/symptoms of infection Outcome: Progressing Problem: Knowledge Deficit Goal: Patient/Significant other demonstrates understanding of Tracheostomy Outcome: Progressing Problem: Communication/Dysarthria Goal: STG - Patient will tolerate PMV trials Outcome: Progressing Problem: Pain/Discomfort Goal: Patient exhibits reduced pain/discomfort as evidenced by pain scores Outcome: Progressing Goal: Patient uses pharmacological and non-pharmacological pain management strategies. Outcome: Progressing Goal: Patient verbalizes acceptable level of pain relief and ability to engage in desired activity. Outcome: Progressing Problem: Skin Integrity Goal: Skin integrity is maintained or improved Outcome: Progressing * Suzy Framer RN - 10/11/2022 9:39 AM CDT Care Coordination Progress Note ?? Anticipated level of care at discharge: Custodial - Medicaid Discharge Plan: SNF. [facility] coming for an onsite. Adriane will do a visit to facility on 10/08 as well. CM/SW will continue to follow for placement ?? READMISSION RISK SCORE is 27 at 3:03 PM 10/08/2022. ?? Anticipated Discharge Date: 10/12/22 ?? Patient/Family provided with list of resources? Yes Preferred Provider / High Quality Network List given?: Yes Reason for provider choice: Pt. choice - previous provider ?? Family Support (Name and Phone): Extended Emergency Contact Information Primary Emergency Contact: Adriane Pearson Mobile Relation: Sister Shop Mechanic needed? No Secondary Emergency Contact: Amarjit Tabor [facility] Relation: Brother ?? Patient is alert & orientated or has capacity for decision making: Yes?? If No , Legal or Designated Decision Maker: N/A ?? Transportation at Discharge: Ambulance ?? Equipment at Home: Equipment at Home: Facility Equipment ?? List DME patient requires but does not have: ?? DME Provider: ?? Medication affordability concerns: No? Follow Up Appointment: ?? Transportation to MD: ?? Auth Number (if required): NH: DME: Medications: Transportation: ?? Name: Suzy Farmer RN Phone: [phone] * Destiney Cruz RN - 10/10/2022 11:04 PM CDT Patient resting in bed no signs of distress at this time suctioned as per ordered will continue to monitor airway. Problem: Impaired Gas Exchange Goal: Resp rate/effort will be within specified limits Outcome: Progressing Problem: Ineffective Airway Clearance Goal: Patent airway Outcome: Progressing Problem: Fall Risk Goal: Fall risk and fall related injury risk are minimized (interventions related to the fall risk can be found in the flowsheet documentation) Outcome: Progressing Problem: Nutrient: Inadequate protein-energy intake Goal: Total intake will meet estimated nutrient needs Outcome: Progressing Problem: Oxygenation/Respiratory Function Goal: Patent airway Outcome: Progressing Goal: Respiratory rate/effort will be within specified limits Outcome: Progressing Problem: Care of Tracheostomy Goal: Tracheostomy tube and site will be maintained Outcome: Progressing Problem: Potential for Infection Goal: Insertion site without signs/symptoms of infection Outcome: Progressing Problem: Knowledge Deficit Goal: Patient/Significant other demonstrates understanding of Tracheostomy Outcome: Progressing Problem: Skin Integrity Goal: Skin integrity is maintained or improved Outcome: Progressing Problem: Pain/Discomfort Goal: Patient exhibits reduced pain/discomfort as evidenced by pain scores Outcome: Progressing Goal: Patient uses pharmacological and non-pharmacological pain management strategies. Outcome: Progressing Goal: Patient verbalizes acceptable level of pain relief and ability to engage in desired activity. Outcome: Progressing Problem: Communication/Dysarthria Goal: STG - Patient will tolerate PMV trials Outcome: Progressing * Rhianna Hernandez RN - 10/10/2022 8:30 PM CDT Rapid Response [place] [address] Patient: Bi Tabor : 1960 Location: [facility] Routine rounds completed on patient. Currently sleeping quietly in bed. No s/s of distress noted. VSS. 100% on room air. No concerns at this time per dry pan charger. Vital Signs: Patient Vitals for the past 6 hrs: Temp Pulse Resp BP BP Method 10/10/222017 97.5 ??F (36.4 ??C) 81 18 133/76 Automatic Rhianna Hernandez RN Rapid Response Nurse [id number] * Maia Hoskins RN - 10/10/2022 11:26 AM CDT Problem: Impaired Gas Exchange Goal: Resp rate/effort will be within specified limits Outcome: Progressing Problem: Ineffective Airway Clearance Goal: Patent airway Outcome: Progressing Problem: Fall Risk Goal: Fall risk and fall related injury risk are minimized (interventions related to the fall risk can be found in the flowsheet documentation) Outcome: Progressing Problem: Nutrient: Inadequate protein-energy intake Goal: Total intake will meet estimated nutrient needs Outcome: Progressing Problem: Oxygenation/Respiratory Function Goal: Patent airway Outcome: Progressing Goal: Respiratory rate/effort will be within specified limits Outcome: Progressing Problem: Care of Tracheostomy Goal: Tracheostomy tube and site will be maintained Outcome: Progressing Problem: Potential for Infection Goal: Insertion site without signs/symptoms of infection Outcome: Progressing Problem: Knowledge Deficit Goal: Patient/Significant other demonstrates understanding of Tracheostomy Outcome: Progressing Problem: Communication/Dysarthria Goal: STG - Patient will tolerate PMV trials Outcome: Progressing Problem: Pain/Discomfort Goal: Patient exhibits reduced pain/discomfort as evidenced by pain scores Outcome: Progressing Goal: Patient uses pharmacological and non-pharmacological pain management strategies. Outcome: Progressing Goal: Patient verbalizes acceptable level of pain relief and ability to engage in desired activity. Outcome: Progressing Problem: Skin Integrity Goal: Skin integrity is maintained or improved Outcome: Progressing * Artur Mcgraw MD - 10/10/2022 9:19 AM CDT [facility] Medicine Progress Note Name: Bi Tabor Age: [age] year old Room: [facility]/1 Date Admitted: 08/28/2022 Chief Complaint: Shortness of breath Subjective: Patient was seen and examined at bedside. Denies chest pain, shortness of breath,cough, headaches, dizziness. Adriane pearson given an update about clinical course. Objective: Vitals: 10/10/22 0044 10/10/22 0443 10/10/22 0542 10/10/22 0853 BP: 126/64 122/71 146/77 Pulse: 83 85 88 91 Resp: 18 18 18 16 Temp: 97.7 ??F (36.5 ??C) 97.9 ??F (36.6 ??C) 97.7 ??F (36.5 ??C) SpO2: 98% 96% 96% Weight: Height: Estimated body mass index is 16.14 kg/m?? as calculated from the following: Height as of this encounter: 1.829 m (6' 0.01 ). Weight as of this encounter: 54 kg (119 lb). Physical Exam: General: Alert, cooperative HEENT: NC,AT, trach in place Neck: Supple, no JVD Heart: RRR, normal S1 and S2 Lungs: clear breath sounds Abdomen: Soft, non-tender, normal bowel sounds Extremities: No edema Pulses: 2+ and symmetric MSKL: Normal bulk and tone. Intact ROM in all extremities Neuro: Alert??and oriented x3 Labs: Recent Labs Component Name 10/09/22 1204 10/08/22 0624 08/29/22 0537 08/28/22 2224 WBC 9.4 5.6 - - HGB 12.6 12.5 - - HCT 38.6 38.0 - - NA 140 138 - 142 CL 108* 105 - 111* BUN 14 19 - 11 CREATININE 0.39* 0.45* - 0.50* PHOS - 3.2 - 3.5 CALCIUM 9.8 9.7 - 8.8 PT - - - 15.2* INR - - - 1.2 AST 15 - - 13 ALT 10 - - 5 ALKPHOS 83 - - 67 TBILI 0.1* - - 0.6 - = values in this interval not displayed. Imaging: No results found. History of CVA (cerebrovascular accident) (POA: Yes) Paroxysmal tachycardia, unspecified (CMS/HCC) (POA: Yes) Sepsis without acute organ dysfunction (CMS/HCC) (POA: Yes) Protein calorie malnutrition (CMS/HCC) (POA: Yes) Tachypnea (POA: Yes) Chronic respiratory failure with hypoxia (CMS/HCC) (POA: Yes) Assessment and Plan: 62 year old male with past medical history significant for CVA w/??left??sided residual deficits, seizure disorder, dementia, dysphagia w/ recurrent aspiration s/p PEG, zenker divertiuculum s/p diverticulectomy 2022, chronic hypoxic respiratory faiure s/p trach 06/2022, PVD s/p L AKA c/b nonhealing foot wound, HTN who presented to [facility] 08/28 with shortness of breath 1. Chronic hypoxic respiratory failure: s/p trach, continue trach care, continue saline nebs q6hrs,xopenex nebs q6 hours, scopolamine patch ?? 2. Seizure disorder: continue??lacosamide, Keppra, Depakote and clobazam, seizure precaution ?? 3. Hx of CVA: continue lipitor ?? 4. PVD: s/p left AKA, continue lipitor ?? 5. Staph??capitis bacteremia: completed meropenem 09/17 ?? 6. Pseudomonal pneumonia:??completed Meropenem 09/17 ?? 7. Pressure ulcer:??on right heel, wound care? 8. Zenker diverticulum s/p diverticulectomy ?? 9. Hyperlipidemia, continue Lipitor? 10. Normocytic anemia: monitor ?? 11. HTN: not on antihypertensive Lines:??PIV Disposition: Inpatient Diet:??tube feed Prophylaxis:??lovenox Code: Full Artur Mcgraw MD Hospitalist, Internal Medicine * Rg Nicolas RN - 10/10/2022 5:18 AM CDT Problem: Impaired Gas Exchange Goal: Resp rate/effort will be within specified limits Outcome: Progressing Problem: Impaired Gas Exchange Goal: Resp rate/effort will be within specified limits Outcome: Progressing Problem: Ineffective Airway Clearance Goal: Patent airway Outcome: Progressing Problem: Fall Risk Goal: Fall risk and fall related injury risk are minimized (interventions related to the fall risk can be found in the flowsheet documentation) Outcome: Progressing Problem: Nutrient: Inadequate protein-energy intake Goal: Total intake will meet estimated nutrient needs Outcome: Progressing Problem: Oxygenation/Respiratory Function Goal: Patent airway Outcome: Progressing Goal: Respiratory rate/effort will be within specified limits Outcome: Progressing Problem: Care of Tracheostomy Goal: Tracheostomy tube and site will be maintained Outcome: Progressing Problem: Potential for Infection Goal: Insertion site without signs/symptoms of infection Outcome: Progressing Problem: Knowledge Deficit Goal: Patient/Significant other demonstrates understanding of Tracheostomy Outcome: Progressing Problem: Communication/Dysarthria Goal: STG - Patient will tolerate PMV trials Outcome: Progressing Problem: Pain/Discomfort Goal: Patient exhibits reduced pain/discomfort as evidenced by pain scores Outcome: Progressing Goal: Patient uses pharmacological and non-pharmacological pain management strategies. Outcome: Progressing Goal: Patient verbalizes acceptable level of pain relief and ability to engage in desired activity. Outcome: Progressing Problem: Skin Integrity Goal: Skin integrity is maintained or improved Outcome: Progressing * Rhianna Hernandez RN - 10/09/2022 8:20 PM CDT Rapid Response Nurse Rounding Note [facility] [address] [place] [address] Patient: Bi Tabor : 1960 Location: [facility] Routine rounds completed on patient. Resting quietly in bed. Oriented to self. VSS. 98% on trach collar 25L/30%. Issues during the day with mucous clearance. Spoke with primary RN who plans to do regular trach suctioning to prevent plugging and airway impairment. No other concerns at this time per primary RN. Will continue to follow Vital Signs: Patient Vitals for the past 6 hrs: Temp Pulse Resp BP BP Method 10/10/22 0044 97.7 ??F (36.5 ??C) 83 18 126/64 Automatic 10/09/222012 98.4 ??F (36.9 ??C) 100 18 122/71 Automatic Rhianna Hernandez RN Rapid Response Nurse [id number] * Ritesh Connors RN - 10/09/2022 6:55 PM CDT Pt has had no further incidents this evening. He has been suctioned as needed as has produced a fewballs of mucus. He also coughed a lot up in his mouth. He had a small hay like bowel movement. Charge attempted to get a IV twice with no success. He continues with feeding tube at 65 cc/ hr. Medications down tube with no complications at this time. He is able to make needs known and denies any at this time. Call light in easy reach. * Ritesh Connors RN - 10/09/2022 6:49 PM CDT Problem: Impaired Gas Exchange Goal: Resp rate/effort will be within specified limits 10/09/2022 1849 by Ritesh Connors RN Outcome: Not Progressing 10/09/2022 1756 by Ritesh Connors RN Outcome: Not Progressing * Ritesh Connors RN - 10/09/2022 5:57 PM CDT Problem: Impaired Gas Exchange Goal: Resp rate/effort will be within specified limits Outcome: Not Progressing * Ritseh Connors RN - 10/09/2022 4:00 PM CDT Tube feeding resumed at current setting MD stated No concerns of aspiration. Will continue to monitor. Charge aware * Ritesh Connors RN - 10/09/2022 3:26 PM CDT Pt cbg 86 MD notified. MD aware feeding is still on hold at this time. MD stated continue to monitor and after he reviews labs he will put in orders. Will continue to monitor no new orders at this time. Charge nurse aware. * Ritesh Connors RN - 10/09/2022 12:02 PM CDT RN notified by respiratory that pt is tachypneic and tachycardic. notified by respiratorydorotheacalled. and dorothea team to room. PT pulse 136 at this time. Pt being suctioned and put on airvo at 35% flow of 50 p 126 and rapid team in room blood gases and labs drawn at this time. * Artur Mcgraw MD - 10/09/2022 9:33 AM CDT [facility] Medicine Progress Note Name: Bi Tabor Age: [age] year old Room: 7704/1 Date Admitted: 08/28/2022 Chief Complaint: Shortness of breath Subjective: Patient was seen and examined at bedside. Denies chest pain, shortness of breath,cough, headaches, dizziness. He states he feels better than most of his hospital stay today. Sounds gurgly. Reinforced RT for continued bronchial hygiene with suction and percussion. Objective: Vitals: 10/08/22 1616 10/09/22 0430 10/09/22 0806 10/09/22 0839 BP: 132/68 117/82 140/77 Pulse: 74 105 94 (!) 117 Resp: 16 16 16 14 Temp: 97.3 ??F (36.3 ??C) 97.7 ??F (36.5 ??C) SpO2: 95% 96% 97% 95% Weight: Height: Estimated body mass index is 16.14 kg/m?? as calculated from the following: Height as of this encounter: 1.829 m (6' 0.01 ). Weight as of this encounter: 54 kg (119 lb). Physical Exam: General: Alert, cooperative, sounds gurgly HEENT: NC,AT, trach in place Neck: Supple, no JVD Heart: RRR, normal S1 and S2 Lungs: upper airway conducted sounds Abdomen: Soft, non-tender, normal bowel sounds Extremities: No edema Pulses: 2+ and symmetric MSKL: Normal bulk and tone. Intact ROM in all extremities Neuro: Alert??and oriented x3 Labs: Recent Labs Component Name 10/08/22 0624 08/29/22 0537 08/28/22 2224 WBC 5.6 - - HGB 12.5 - - HCT 38.0 - - NA 138 - 142 CL 105 - 111* BUN 19 - 11 CREATININE 0.45* - 0.50* PHOS 3.2 - 3.5 CALCIUM 9.7 - 8.8 PT - - 15.2* INR - - 1.2 AST - - 13 ALT - - 5 ALKPHOS - - 67 TBILI - - 0.6 - = values in this interval not displayed. Imaging: No results found. History of CVA (cerebrovascular accident) (POA: Yes) Paroxysmal tachycardia, unspecified (CMS/HCC) (POA: Yes) Sepsis without acute organ dysfunction (CMS/HCC) (POA: Yes) Protein calorie malnutrition (CMS/HCC) (POA: Yes) Tachypnea (POA: Yes) Chronic respiratory failure with hypoxia (CMS/HCC) (POA: Yes) Assessment and Plan: 62 year old male with past medical history significant for CVA w/??left??sided residual deficits, seizure disorder, dementia, dysphagia w/ recurrent aspiration s/p PEG, zenker divertiuculum s/p diverticulectomy 2022, chronic hypoxic respiratory faiure s/p trach 06/2022, PVD s/p L AKA c/b nonhealing foot wound, HTN who presented to [facility] 08/28 with shortness of breath 1. Chronic hypoxic respiratory failure: s/p trach, continue trach care ?? 2. Seizure disorder: continue??lacosamide, Keppra, Depakote and clobazam, seizure precaution ?? 3. Hx of CVA: continue lipitor ?? 4. PVD: s/p left AKA, continue lipitor ?? 5. Staph??capitis bacteremia: completed meropenem 09/17 ?? 6. Pseudomonal pneumonia:??completed Meropenem 09/17 ?? 7. Pressure ulcer:??on right heel, wound care? 8. Zenker diverticulum s/p diverticulectomy ?? 9. Hyperlipidemia, continue Lipitor? 10. Normocytic anemia: monitor ?? 11. HTN: not on antihypertensive Lines:??PIV Disposition: Inpatient Diet:??tube feed Prophylaxis:??lovenox Code: Full Artur Mcgraw MD Hospitalist, Internal Medicine * Rg Nicolas RN - 10/09/2022 4:51 AM CDT Pt stable, q2hr turn , malewick in place, maintained o2 sats on 2l, feeds continues * Ana Castro RD/NOLAN - 10/08/2022 3:10 PM CDT Nutrition Re-Assessment Brief Synopsis: Patient is diagnosed with severe malnutrition; Specific criteria can be found in assessment below Nutrition Plan: NPO + TF Tube Feeding Recommendations: Continuous: TwoCal HN @ 55 ml/hr. Provides 2640 kcal, 110 g pro, 287 g CHO, and 924 ml free water. +300 ml q4 hrs free water flush or per MD if not on additional fluids Start TF at 45 ml/hr, advance 10 ml q4 until at goal Recommendations to Physician: See TF recs above Code for severe malnutrition Comments: Pt scheduled for reassessment. Pt A&Ox1. Weight appears to be trending down. Pt sleeping at time of attempted visit today; no visitors at bedside. Pt w/visible muscle wasting/fat loss, meets ASPEN criteria for malnutrition, see malnutrition etiology below. RD altered TF order to better meet estimated needs, see TF recs above. 20mL residuals reported today; 0mL gastric output reported yesterday. +BM x3 over 24hrs per I/Os - miralax and senna d/c'd. Will continue to follow. 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 Diet order accuracy Current diet order: NPO Current tube feeding order: Jevity 1.5 @65ml/hr+1 prostat packet Nutrition recommendation: alter/change nutrition order P.O.Intake for the past 48 hrs:No data recorded Supplement(s) Consumed- Last 48 hours None Food Allergies: No known food allergies GI Concerns: None Chewing/Swallowing: Dysphagia Pain affecting intake: No Admission weight: Weight: 63.5 kg (140 lb) (08/28/22 1101) Recent Weights/Methods 09/19/2022 0400 09/20/2022 0601 09/21/2022 0400 09/24/2022 0400 09/26/2022 2112 10/02/2022 0400 10/05/2022 0445 10/05/2022 0506 Weight: 63.5 kg (139 lb 14.4 oz) 63 kg (138 lb 12.8 oz) 63.1 kg (139 lb 3.2 oz) 61.5 kg (135 lb 8 oz) 61.5 kg (135 lb 9.6 oz) 60.8 kg (134 lb) -- 54 kg (119 lb) Weight Method (Utilize Scales): Bedscale Bedscale -- -- -- Bedscale -- Bedscale Wt Comments: Weight trending down - questionable wt hx in EMR; montioring Height: 182.9 cm (6' 0.01 ) IBW/lb (Calculated) Male: [id number] , Laboratory values reviewed. Recent Labs Component Name 10/08/22 0624 10/06/22 1158 10/04/22 0837 08/30/22 0039 08/28/22 2224 08/28/22 1251 07/01/22 1634 06/30/22 1039 BUN 19 15 12 - 11 12 - 7 CREATININE 0.45* 0.47* 0.47* - 0.50* 0.51* - 0.58* NA 138 141 141 - 142 139 - 140 POTASSIUM 4.3 4.4 4.3 - 3.9 4.5 - 4.0 CL 105 105 105 - 111* 103 - 107 CO2 28 26 26 - 24 27 - 24 GLUCOSE 74 100 117* - 86 100 - 115 CALCIUM 9.7 10.4* 10.0 - 8.8 9.8 - 9.5 PROT - - - - 6.0 7.5 - 6.2 ALB - - - - 2.0* 2.5* - 2.2* TBILI - - - - 0.6 0.5 - 0.3 ALKPHOS - - - - 67 88 - 65 ALT - - - - 5 6 - 5 AST - - - - 13 14 - 13 ANIONGAP 9 14 14 - 11 14 - 13 BCR 42* 32* 26* - 22 24* - 12 OSMOLALITY 287 293 293 - 293 288 - 289 AGRATIO - - - - 0.5* 0.5* - 0.6* EGFR >90 >90 >90 - >90 >90 - >90 - = values in this interval not displayed. Medications noted. Current Facility-Administered Medications Medication ??? acetaminophen (Tylenol) tablet 650 mg ??? artificial tears ophthalmic ointment ??? atorvastatin (Lipitor) tablet 40 mg ??? chlorhexidine (Peridex) 0.12 % oral solution 15 mL ??? cloBAZam (Onfi) tablet 20 mg ??? dextrose 10 % IV bolus Or ??? dextrose 10 % IV bolus ??? divalproex sprinkle (Depakote Sprinkle) capsule 500 mg ??? enoxaparin (Lovenox) injection 40 mg ??? glucagon (Glucagen) injection 1 mg ??? glucose (Diabetic Use) (Dex4 Glucose) oral liquid ??? glucose (Diabetic Use) oral gel ??? glucose chew tablet 4 tablet ??? guaiFENesin (Robitussin) solution 10 mL ??? lacosamide (Vimpat) tablet 200 mg ??? levalbuterol (Xopenex) nebulizer solution 1.25 mg ??? levETIRAcetam (Keppra) tablet 2,000 mg ??? scopolamine (Transderm-Scop) 1 patch And ??? scopolamine patch placement confirmation ??? senna-docusate (Senokot-S) tablet 1 tablet ??? sodium chloride (Inhalant) 7 % nebulizer solution 4 mL Skin/Wound: WDL Estimated Energy Needs: KCAL: 1199-1259 (35-45kcal/kg (ABW)) Protein (g): 110-140g (20% estimated kcal needs) Fluid (ml): 1ml/kcal Needs based on: Kcal/kg- (Comment) (ABW 61.5kg) Recommended Access Route: TF Malnutrition Etiology: Malnutrition in the context of: chronic disease, Malnutrition Severity: Severe BMI: Body mass index is 16.14 kg/m??. GI Concerns: None Nutrition Focused Physical Assessment: Loss of Subcutaneous Fat Orbital: Severe Buccal: Severe Tricep: Severe Muscle Loss Temples (Temporalis Muscle): Severe Clavicles (Pectoralis & Deltoids): Severe Shoulders (Deltoids): Severe Nutrition Care Process (2) Nutrition Diagnostic Statement (2): Malnutrition related to:: inadequate protein-energy intake as evidenced by:: unintentional weight loss;BMI less than 19;loss of subcutaneous fat;loss of muscle mass Nutrition Diagnostic Statement Progress: New diagnostic statement established Nutrition Intervention: Enteral nutrition: Monitoring: TF, BM, labs, meds, weight Evaluation: Nutrition Goal: Total intake will meet estimated nutrient needs Nutrition Goal Timeframe: Throughout stay Nutrition Goal Progress: Continue with current goal [id number] * Suzy Farmer RN - 10/08/2022 3:03 PM CDT Care Coordination Progress Note Anticipated level of care at discharge: Custodial - Medicaid Discharge Plan: SNF. Sister Adriane aware that [facility] is not able to accept this pt. Esther is considering. LASHON provided her with contact information. [facility] is coming for an onsite. Adriane will doa visit to facility on Tuesday as well. LASHON/ASHWIN will continue to follow for placement READMISSION RISK SCORE is 27 at 3:03 PM 10/08/2022. Anticipated Discharge Date: 10/12/22 Patient/Family provided with list of resources? Yes Preferred Provider / High Quality Network List given?: Yes Reason for provider choice: Pt. choice - previous provider Family Support (Name and Phone): Extended Emergency Contact Information Primary Emergency Contact: Adriane Pearson Mobile Relation: Sister Shop Mechanic needed? No Secondary Emergency Contact: Amarjit Tabor [facility] Relation: Brother Patient is alert & orientated or has capacity for decision making: Yes If No , Legal or Designated Decision Maker: N/A Transportation at Discharge: Ambulance Equipment at Home: Equipment at Home: Facility Equipment List DME patient requires but does not have: DME Provider: Medication affordability concerns: No Follow Up Appointment: Transportation to MD: Auth Number (if required): [place]: DME: Medications: Transportation: Name: Suzy Farmer RN Phone: [phone] * Suzy Farmer RN - 10/08/2022 12:31 PM CDT Care Coordination Progress Note Anticipated level of care at discharge: Custodial - Medicaid Discharge Plan: [facility] [place] is not able to accept this pt. CM contacted sister Adriane [phone] to consider [facility] in [place]. She is currently at a and will get back with CM READMISSION RISK SCORE is 27 at 12:31 PM 10/08/2022. Anticipated Discharge Date: 10/12/22 Patient/Family provided with list of resources? Yes Preferred Provider / High Quality Network List given?: Yes Reason for provider choice: Pt. choice - previous provider Family Support (Name and Phone): Extended Emergency Contact Information Primary Emergency Contact: Adriane Pearson Mobile Relation: Sister Shop Mechanic needed? No Secondary Emergency Contact: Amarjit Tabor [facility] Relation: Brother Patient is alert & orientated or has capacity for decision making: Yes If No , Legal or Designated Decision Maker: N/A Transportation at Discharge: Ambulance Equipment at Home: Equipment at Home: Facility Equipment List DME patient requires but does not have: DME Provider: Medication affordability concerns: No Follow Up Appointment: Transportation to MD: Auth Number (if required): [place]: DME: Medications: Transportation: Name: Suzy Farmer RN Phone: [phone] * Gaurav Juarez MSW - 10/08/2022 12:05 PM CDT Tuesday Summary Note Discharge Level of Care:SNF Discharge Destination:[facility] Phone Number:Maryan [phone] Fax Number: Insurance Auth: Anticipated Mode of Transportation:EMS Contacts (Name, relationship, phone #): Sister Adriane [phone] Anticipated DC Date:TBD Pending Needs: Sister to agree on [facility] Comments: CLARITA Ram 10/08/2022 * Artur Mcgraw MD - 10/08/2022 8:41 AM CDT Hospital Medicine Progress Note Name: Bi Tabor Age: [age] year old Room: 7704/1 Date Admitted: 08/28/2022 Chief Complaint: Shortness of breath Subjective: Patient was seen and examined at bedside. Denies chest pain, shortness of breath,cough. Abdominal pain has improved after discontinuation of miralax Objective: Vitals: 10/07/22201410/08/22 0204 10/08/22 0421 10/08/22 0818 BP: 134/69 145/67 121/76 125/73 Pulse: 89 84 95 73 Resp: 18 18 18 18 Temp: 97.9 ??F (36.6 ??C) 97.5 ??F (36.4 ??C) 97.7 ??F (36.5 ??C) SpO2: 100% 100% 98% 100% Weight: Height: Estimated body mass index is 16.14 kg/m?? as calculated from the following: Height as of this encounter: 1.829 m (6'). Weight as of this encounter: 54 kg (119 lb). Physical Exam: General: Alert, cooperative, NAD HEENT: NC,AT, trach in place Neck: Supple, no JVD Heart: RRR, normal S1 and S2 Lungs: Clear to auscultation Abdomen: Soft, non-tender, normal bowel sounds Extremities: No edema Pulses: 2+ and symmetric MSKL: Normal bulk and tone. Intact ROM in all extremities Neuro: Alert and oriented x3 Labs: Recent Labs Component Name 10/08/22 0624 08/29/22 0537 08/28/22 2224 WBC 5.6 - - HGB 12.5 - - HCT 38.0 - - NA 138 - 142 CL 105 - 111* BUN 19 - 11 CREATININE 0.45* - 0.50* PHOS 3.2 - 3.5 CALCIUM 9.7 - 8.8 PT - - 15.2* INR - - 1.2 AST - - 13 ALT - - 5 ALKPHOS - - 67 TBILI - - 0.6 - = values in this interval not displayed. Imaging: No results found. History of CVA (cerebrovascular accident) (POA: Yes) Paroxysmal tachycardia, unspecified (CMS/HCC) (POA: Yes) Sepsis without acute organ dysfunction (CMS/HCC) (POA: Yes) Protein calorie malnutrition (CMS/HCC) (POA: Yes) Tachypnea (POA: Yes) Chronic respiratory failure with hypoxia (CMS/HCC) (POA: Yes) Assessment and Plan: 62 year old male with past medical history significant for CVA w/??left??sided residual deficits, seizure disorder, dementia, dysphagia w/ recurrent aspiration s/p PEG, zenker divertiuculum s/p diverticulectomy 2022, chronic hypoxic respiratory faiure s/p trach 06/2022, PVD s/p L AKA c/b nonhealing foot wound, HTN who presented to [facility] 08/28 with shortness of breath 1. Chronic hypoxic respiratory failure: s/p trach, continue trach care ?? 2. Seizure disorder: continue??lacosamide, Keppra, Depakote and clobazam, seizure precaution ?? 3. Hx of CVA: continue lipitor ?? 4. PVD: s/p left AKA, continue lipitor ?? 5. Staph??capitis bacteremia: completed meropenem 09/17 ?? 6. Pseudomonal pneumonia:??completed Meropenem 09/17 ?? 7. Pressure ulcer:??on right heel, wound care? 8. Zenker diverticulum s/p diverticulectomy ?? 9. Hyperlipidemia, continue Lipitor? 10. Normocytic anemia: monitor ?? 11. HTN: not on antihypertensive Lines:??PIV Disposition: Inpatient Diet:??tube feed Prophylaxis:??lovenox Code: Full Artur Mcgraw MD Hospitalist, Internal Medicine * Ramonita Oropeza RN - 10/07/2022 11:56 PM CDT Problem: Impaired Gas Exchange Goal: Resp rate/effort will be within specified limits Outcome: Progressing Problem: Ineffective Airway Clearance Goal: Patent airway Outcome: Progressing Problem: Fall Risk Goal: Fall risk and fall related injury risk are minimized (interventions related to the fall risk can be found in the flowsheet documentation) Outcome: Progressing Problem: Nutrient: Inadequate protein-energy intake Goal: Total intake will meet estimated nutrient needs Outcome: Progressing Problem: Oxygenation/Respiratory Function Goal: Patent airway Outcome: Progressing Goal: Respiratory rate/effort will be within specified limits Outcome: Progressing Problem: Care of Tracheostomy Goal: Tracheostomy tube and site will be maintained Outcome: Progressing Problem: Potential for Infection Goal: Insertion site without signs/symptoms of infection Outcome: Progressing Problem: Knowledge Deficit Goal: Patient/Significant other demonstrates understanding of Tracheostomy Outcome: Progressing Problem: Communication/Dysarthria Goal: STG - Patient will tolerate PMV trials Outcome: Progressing Problem: Pain/Discomfort Goal: Patient exhibits reduced pain/discomfort as evidenced by pain scores Outcome: Progressing Goal: Patient uses pharmacological and non-pharmacological pain management strategies. Outcome: Progressing Goal: Patient verbalizes acceptable level of pain relief and ability to engage in desired activity. Outcome: Progressing Problem: Skin Integrity Goal: Skin integrity is maintained or improved Outcome: Progressing * Gianfranco Skaggs RN - 10/07/2022 10:13 AM CDT Problem: Impaired Gas Exchange Goal: Resp rate/effort will be within specified limits Outcome: Progressing Problem: Ineffective Airway Clearance Goal: Patent airway Outcome: Progressing Problem: Fall Risk Goal: Fall risk and fall related injury risk are minimized (interventions related to the fall risk can be found in the flowsheet documentation) Outcome: Progressing Problem: Nutrient: Inadequate protein-energy intake Goal: Total intake will meet estimated nutrient needs Outcome: Progressing Problem: Oxygenation/Respiratory Function Goal: Patent airway Outcome: Progressing Goal: Respiratory rate/effort will be within specified limits Outcome: Progressing Problem: Care of Tracheostomy Goal: Tracheostomy tube and site will be maintained Outcome: Progressing Problem: Potential for Infection Goal: Insertion site without signs/symptoms of infection Outcome: Progressing Problem: Knowledge Deficit Goal: Patient/Significant other demonstrates understanding of Tracheostomy Outcome: Progressing Problem: Communication/Dysarthria Goal: STG - Patient will tolerate PMV trials Outcome: Progressing Problem: Pain/Discomfort Goal: Patient exhibits reduced pain/discomfort as evidenced by pain scores Outcome: Progressing Goal: Patient uses pharmacological and non-pharmacological pain management strategies. Outcome: Progressing Goal: Patient verbalizes acceptable level of pain relief and ability to engage in desired activity. Outcome: Progressing Problem: Skin Integrity Goal: Skin integrity is maintained or improved Outcome: Progressing * Artur Mcgraw MD - 10/07/2022 10:12 AM CDT [facility] Medicine Progress Note Name: Bi Tabor Age: [age] year old Room: 7704/1 Date Admitted: 08/28/2022 Chief Complaint: Shortness of breath Subjective: Patient was seen and examined at bedside. Denies chest pain, shortness of breath,cough. States he had some abdominal pain overnight but now it is resolved. He feels it was cramping and that it was generalized. Will DC miralax as he is havingnormal bowel movements daily. Objective: Vitals: 10/07/22 0118 10/07/22 0429 10/07/22 0443 10/07/22 0930 BP: 114/72 138/76 Pulse: 83 70 79 76 Resp: 18 18 18 16 Temp: 97.7 ??F (36.5 ??C) 97.3 ??F (36.3 ??C) SpO2: 99% 99% 98% 100% Weight: Height: Estimated body mass index is 16.14 kg/m?? as calculated from the following: Height as of this encounter: 1.829 m (6'). Weight as of this encounter: 54 kg (119 lb). Physical Exam: General: Alert, cooperative, NAD HEENT: NC,AT, trach in place Neck: Supple, no JVD Heart: RRR, normal S1 and S2 Lungs: Clear to auscultation Abdomen: Soft, non-tender, normal bowel sounds Extremities: No edema Pulses: 2+ and symmetric MSKL: Normal bulk and tone. Intact ROM in all extremities Neuro: Alert and oriented x3 Labs: Recent Labs Component Name 10/06/22 1158 08/29/22 0537 08/28/22 2224 WBC 5.6 - - HGB 12.8 - - HCT 39.8 - - NA 141 - 142 CL 105 - 111* BUN 15 - 11 CREATININE 0.47* - 0.50* PHOS 3.1 - 3.5 CALCIUM 10.4* - 8.8 PT - - 15.2* INR - - 1.2 AST - - 13 ALT - - 5 ALKPHOS - - 67 TBILI - - 0.6 - = values in this interval not displayed. Imaging: No results found. History of CVA (cerebrovascular accident) (POA: Yes) Paroxysmal tachycardia, unspecified (CMS/HCC) (POA: Yes) Sepsis without acute organ dysfunction (CMS/HCC) (POA: Yes) Protein calorie malnutrition (CMS/HCC) (POA: Yes) Tachypnea (POA: Yes) Chronic respiratory failure with hypoxia (CMS/HCC) (POA: Yes) Assessment and Plan: 62 year old male with past medical history significant for CVA w/??left??sided residual deficits, seizure disorder, dementia, dysphagia w/ recurrent aspiration s/p PEG, zenker divertiuculum s/p diverticulectomy 2022, chronic hypoxic respiratory faiure s/p trach 06/2022, PVD s/p L AKA c/b nonhealing foot wound, HTN who presented to [facility] 08/28 with shortness of breath 1. Chronic hypoxic respiratory failure: s/p trach, continue trach care ?? 2. Seizure disorder: continue??lacosamide, Keppra, Depakote and clobazam, seizure precaution ?? 3. Hx of CVA: continue lipitor ?? 4. PVD: s/p left AKA, continue lipitor ?? 5. Staph??capitis bacteremia: completed meropenem 09/17 ?? 6. Pseudomonal pneumonia:??completed Meropenem 09/17 ?? 7. Pressure ulcer:??on right heel, wound care? 8. Zenker diverticulum s/p diverticulectomy ?? 9. Hyperlipidemia, continue Lipitor? 10. Normocytic anemia: monitor ?? 11. HTN: not on antihypertensive Lines:??PIV Disposition: Inpatient Diet:??tube feed Prophylaxis:??lovenox Code: Full Artur Mcgraw MD Hospitalist, Internal Medicine * Suzy Farmer RN - 10/07/2022 9:52 AM CDT Care Coordination Progress Note Anticipated level of care at discharge: Custodial - Medicaid Discharge Plan: SNF when accepting facility has auth READMISSION RISK SCORE is 27 at 9:52 AM 10/07/2022. Anticipated Discharge Date: 10/08/22 Patient/Family provided with list of resources? Yes Preferred Provider / High Quality Network List given?: Yes Reason for provider choice: Pt. choice - previous provider Family Support (Name and Phone): Extended Emergency Contact Information Primary Emergency Contact: Adriane Pearson Mobile Relation: Sister Shop Mechanic needed? No Secondary Emergency Contact: Amarjit Tabor [facility] Relation: Brother Patient is alert & orientated or has capacity for decision making: Yes If No , Legal or Designated Decision Maker: N/A Transportation at Discharge: Ambulance Equipment at Home: Equipment at Home: Facility Equipment List DME patient requires but does not have: DME Provider: Medication affordability concerns: No Follow Up Appointment: Transportation to MD: Auth Number (if required): [place]: DME: Medications: Transportation: Name: Suzy Farmer RN Phone: [phone] * Gaurav Juarez MSW - 10/07/2022 9:23 AM CDT ASHWIN and LASHON spoke with the pt's Sister Adriane and she is now agreeable to having the pt go to [facility]. ASHWIN spoke with Abimbola in admissions to inquire about this pt coming to their facility. ASHWIN has sent updated notes. SW to continue to follow for SNF placement. CLARITA Fang 10/07/2022 * Ramonita Oropeza RN - 10/07/2022 1:58 AM CDT Problem: Impaired Gas Exchange Goal: Resp rate/effort will be within specified limits Outcome: Progressing Problem: Ineffective Airway Clearance Goal: Patent airway Outcome: Progressing Problem: Fall Risk Goal: Fall risk and fall related injury risk are minimized (interventions related to the fall risk can be found in the flowsheet documentation) Outcome: Progressing Problem: Nutrient: Inadequate protein-energy intake Goal: Total intake will meet estimated nutrient needs Outcome: Progressing Problem: Oxygenation/Respiratory Function Goal: Patent airway Outcome: Progressing Goal: Respiratory rate/effort will be within specified limits Outcome: Progressing Problem: Care of Tracheostomy Goal: Tracheostomy tube and site will be maintained Outcome: Progressing Problem: Potential for Infection Goal: Insertion site without signs/symptoms of infection Outcome: Progressing Problem: Knowledge Deficit Goal: Patient/Significant other demonstrates understanding of Tracheostomy Outcome: Progressing Problem: Communication/Dysarthria Goal: STG - Patient will tolerate PMV trials Outcome: Progressing Problem: Pain/Discomfort Goal: Patient exhibits reduced pain/discomfort as evidenced by pain scores Outcome: Progressing Goal: Patient uses pharmacological and non-pharmacological pain management strategies. Outcome: Progressing Goal: Patient verbalizes acceptable level of pain relief and ability to engage in desired activity. Outcome: Progressing Problem: Skin Integrity Goal: Skin integrity is maintained or improved Outcome: Progressing * Suzy Farmer RN - 10/06/2022 12:38 PM CDT Care Coordination Progress Note Anticipated level of care at discharge: Custodial - Medicaid Discharge Plan: LASHON spoke with sister Adriane [phone]. SHe is agreeable to dc to [facility]. Gaurav CHRISTOPHER has contacted facility with family determination READMISSION RISK SCORE is 28 at 12:38 PM 10/06/2022. Anticipated Discharge Date: 10/08/22 Patient/Family provided with list of resources? Yes Preferred Provider / High Quality Network List given?: Yes Reason for provider choice: Pt. choice - previous provider Family Support (Name and Phone): Extended Emergency Contact Information Primary Emergency Contact: Alton Pearsonel Mobile Relation: Sister Shop Mechanic needed? No Secondary Emergency Contact: Amarjit Tabor [facility] Relation: Brother Patient is alert & orientated or has capacity for decision making: Yes If No , Legal or Designated Decision Maker: N/A Transportation at Discharge: Ambulance Equipment at Home: Equipment at Home: Facility Equipment List DME patient requires but does not have: DME Provider: Medication affordability concerns: No Follow Up Appointment: Transportation to MD: Auth Number (if required): [place]: DME: Medications: Transportation: Name: Suzy Farmer RN Phone: [phone] * Artur Mcgraw MD - 10/06/2022 10:48 AM CDT [facility] Medicine Progress Note Name: Bi Tabor Age: [age] year old Room: 7704/1 Date Admitted: 08/28/2022 Chief Complaint: Shortness of breath Subjective: Patient was seen and examined at bedside. Denies chest pain, shortness of breath, abdominal pain, cough Objective: Vitals: 10/06/22 0018 10/06/22 0443 10/06/22 0821 10/06/22 0844 BP: 132/72 150/81 140/79 Pulse: 70 71 74 73 Resp: 16 16 16 16 Temp: 97.3 ??F (36.3 ??C) 97.9 ??F (36.6 ??C) 97.3 ??F (36.3 ??C) SpO2: 100% 98% 99% 100% Weight: Height: Estimated body mass index is 16.14 kg/m?? as calculated from the following: Height as of this encounter: 1.829 m (6'). Weight as of this encounter: 54 kg (119 lb). Physical Exam: General: Alert, cooperative, NAD HEENT: NC,AT, trach in place Neck: Supple, no JVD Heart: RRR, normal S1 and S2 Lungs: Clear to auscultation Abdomen: Soft, non-tender, normal bowel sounds Extremities: No edema Pulses: 2+ and symmetric MSKL: Normal bulk and tone. Intact ROM in all extremities Neuro: Alert Labs: Recent Labs Component Name 10/04/22 0837 08/29/22 0537 08/28/22 2224 WBC 4.9 - - HGB 11.9* - - HCT 36.9 - - NA 141 - 142 CL 105 - 111* BUN 12 - 11 CREATININE 0.47* - 0.50* PHOS 3.8 - 3.5 CALCIUM 10.0 - 8.8 PT - - 15.2* INR - - 1.2 AST - - 13 ALT - - 5 ALKPHOS - - 67 TBILI - - 0.6 - = values in this interval not displayed. Imaging: No results found. History of CVA (cerebrovascular accident) (POA: Yes) Paroxysmal tachycardia, unspecified (CMS/HCC) (POA: Yes) Sepsis without acute organ dysfunction (CMS/HCC) (POA: Yes) Protein calorie malnutrition (CMS/HCC) (POA: Yes) Tachypnea (POA: Yes) Chronic respiratory failure with hypoxia (CMS/HCC) (POA: Yes) Assessment and Plan: 62 year old male with past medical history significant for CVA w/??left??sided residual deficits, seizure disorder, dementia, dysphagia w/ recurrent aspiration s/p PEG, zenker divertiuculum s/p diverticulectomy 2022, chronic hypoxic respiratory faiure s/p trach 06/2022, PVD s/p L AKA c/b nonhealing foot wound, HTN who presented to [facility] 08/28 with shortness of breath 1. Chronic hypoxic respiratory failure: s/p trach, continue trach care ?? 2. Seizure disorder: continue lacosamide, Keppra, Depakote and clobazam, seizure precaution ?? 3. Hx of CVA: continue lipitor ?? 4. PVD: s/p left AKA, continue lipitor ?? 5. Staph capitis bacteremia: completed meropenem 09/17 ?? 6. Pseudomonal pneumonia: completed Meropenem 09/17 ?? 7. Pressure ulcer: on right heel, wound care? 8. Zenker diverticulum s/p diverticulectomy ?? 9. Hyperlipidemia, continue Lipitor ?? 10. Normocytic anemia: monitor ?? 11. HTN: not on antihypertensive Lines: PIV Disposition: Inpatient Diet: tube feed Prophylaxis: lovenox Code: Full Artur Mcgraw MD Hospitalist, Internal Medicine * Ramonita Oropeza RN - 10/06/2022 3:02 AM CDT Problem: Impaired Gas Exchange Goal: Resp rate/effort will be within specified limits Outcome: Progressing Problem: Ineffective Airway Clearance Goal: Patent airway Outcome: Progressing Problem: Fall Risk Goal: Fall risk and fall related injury risk are minimized (interventions related to the fall risk can be found in the flowsheet documentation) Outcome: Progressing Problem: Nutrient: Inadequate protein-energy intake Goal: Total intake will meet estimated nutrient needs Outcome: Progressing Problem: Oxygenation/Respiratory Function Goal: Patent airway Outcome: Progressing Goal: Respiratory rate/effort will be within specified limits Outcome: Progressing Problem: Care of Tracheostomy Goal: Tracheostomy tube and site will be maintained Outcome: Progressing Problem: Potential for Infection Goal: Insertion site without signs/symptoms of infection Outcome: Progressing Problem: Knowledge Deficit Goal: Patient/Significant other demonstrates understanding of Tracheostomy Outcome: Progressing Problem: Communication/Dysarthria Goal: STG - Patient will tolerate PMV trials Outcome: Progressing Problem: Pain/Discomfort Goal: Patient exhibits reduced pain/discomfort as evidenced by pain scores Outcome: Progressing Goal: Patient uses pharmacological and non-pharmacological pain management strategies. Outcome: Progressing Goal: Patient verbalizes acceptable level of pain relief and ability to engage in desired activity. Outcome: Progressing Problem: Skin Integrity Goal: Skin integrity is maintained or improved Outcome: Progressing * Carole Shea RN - 10/05/2022 2:34 PM CDT Patient has not desaturated and tolerating his oxygen therapy through his trach. Patient has expressed he has no pain. * Artur Mcgraw MD - 10/05/2022 11:23 AM CDT [facility] Medicine Progress Note Name: Bi Tabor Age: [age] year old Room: [facility] Date Admitted: 08/28/2022 Chief Complaint: Shortness of breath Subjective: Patient was seen and examined at bedside. Denies chest pain, shortness of breath, abdominal pain, cough Objective: Vitals: 10/05/22 0445 10/05/22 0506 10/05/22 0823 10/05/22 0839 BP: 145/70 Pulse: 58 73 Resp: 16 16 Temp: 97.3 ??F (36.3 ??C) 97.3 ??F (36.3 ??C) SpO2: 95% 100% 100% Weight: 54 kg (119 lb) Height: Estimated body mass index is 16.14 kg/m?? as calculated from the following: Height as of this encounter: 1.829 m (6'). Weight as of this encounter: 54 kg (119 lb). Physical Exam: General: Alert, cooperative, NAD HEENT: NC,AT, trach in place Neck: Supple, no JVD Heart: RRR, normal S1 and S2 Lungs: Clear to auscultation Abdomen: Soft, non-tender, normal bowel sounds Extremities: No edema Pulses: 2+ and symmetric MSKL: Normal bulk and tone. Intact ROM in all extremities Neuro: Alert Labs: Recent Labs Component Name 10/04/22 0837 08/29/22 0537 08/28/22 2224 WBC 4.9 - - HGB 11.9* - - HCT 36.9 - - NA 141 - 142 CL 105 - 111* BUN 12 - 11 CREATININE 0.47* - 0.50* PHOS 3.8 - 3.5 CALCIUM 10.0 - 8.8 PT - - 15.2* INR - - 1.2 AST - - 13 ALT - - 5 ALKPHOS - - 67 TBILI - - 0.6 - = values in this interval not displayed. Imaging: No results found. History of CVA (cerebrovascular accident) (POA: Yes) Paroxysmal tachycardia, unspecified (CMS/HCC) (POA: Yes) Sepsis without acute organ dysfunction (CMS/HCC) (POA: Yes) Protein calorie malnutrition (CMS/HCC) (POA: Yes) Tachypnea (POA: Yes) Chronic respiratory failure with hypoxia (CMS/HCC) (POA: Yes) Assessment and Plan: 62 year old male with past medical history significant for CVA w/ left sided residual deficits, seizure disorder, dementia, dysphagia w/ recurrent aspiration s/p PEG, zenker divertiuculum s/p diverticulectomy 2022, chronic hypoxic respiratory faiure s/p trach 06/2022, PVD s/p L AKA c/b nonhealing foot wound, HTN who presented to [facility] 08/28 with shortness of breath 1. Chronic hypoxic respiratory failure: s/p trach, continue trach care 2. Seizure disorder: continue lacosamide, Keppra, Depakote and clobazam, seizure precaution 3. Hx of CVA: continue lipitor 4. PVD: s/p left AKA, continue lipitor 5. Staph capitis bacteremia: completed meropenem 09/17 6. Pseudomonal pneumonia: completed Meropenem 09/17 7. Pressure ulcer: on right heel, wound care?? 8. Zenker diverticulum s/p diverticulectomy 9. Hyperlipidemia, continue Lipitor 10. Normocytic anemia: monitor 11. HTN: not on antihypertensive Lines: PIV Disposition: Inpatient Diet: tube feed Prophylaxis: lovenox Code: Full Artur Mcgraw MD Hospitalist, Internal Medicine * Gaurav Juarez WEB MARKETING SPECIALIST - 10/05/2022 10:57 AM CDT SW called and left for Chanel ([phone]) in admissions at [facility] to inquire about this pt coming to their SNF. SW to continue to follow for SNF placement. CLARITA Fang 10/05/2022 * Wood Charles RN - 10/05/2022 5:16 AM CDT Patient switched to dolphin mattress. Linens changed, bed in lowest position with bed alarm on. * Wood Charles RN - 10/04/2022 11:34 PM CDT Problem: Impaired Gas Exchange Goal: Resp rate/effort will be within specified limits Outcome: Progressing Problem: Ineffective Airway Clearance Goal: Patent airway Outcome: Progressing Problem: Fall Risk Goal: Fall risk and fall related injury risk are minimized (interventions related to the fall risk can be found in the flowsheet documentation) Outcome: Progressing Problem: Nutrient: Inadequate protein-energy intake Goal: Total intake will meet estimated nutrient needs Outcome: Progressing Problem: Oxygenation/Respiratory Function Goal: Patent [...] is maintained or improved Outcome: Progressing * Riky Lara RN - 10/04/2022 3:54 PM CDT Problem: Impaired Gas Exchange Goal: Resp rate/effort will be within specified limits Outcome: Progressing Problem: Ineffective Airway Clearance Goal: Patent airway Outcome: Progressing Problem: Fall Risk Goal: Fall risk and fall related injury risk are minimized (interventions related to the fall risk can be found in the flowsheet documentation) Outcome: Progressing Problem: Nutrient: Inadequate protein-energy intake Goal: Total intake will meet estimated nutrient needs Outcome: Progressing Problem: Oxygenation/Respiratory Function Goal: Patent airway Outcome: Progressing Goal: Respiratory rate/effort will be within specified limits Outcome: Progressing Problem: Care of Tracheostomy Goal: Tracheostomy tube and site will be maintained Outcome: Progressing Problem: Potential for Infection Goal: Insertion site without signs/symptoms of infection Outcome: Progressing Problem: Knowledge Deficit Goal: Patient/Significant other demonstrates understanding of Tracheostomy Outcome: Progressing Problem: Communication/Dysarthria Goal: STG - Patient will tolerate PMV trials Outcome: Progressing Problem: Pain/Discomfort Goal: Patient exhibits reduced pain/discomfort as evidenced by pain scores Outcome: Progressing Goal: Patient uses pharmacological and non-pharmacological pain management strategies. Outcome: Progressing Goal: Patient verbalizes acceptable level of pain relief and ability to engage in desired activity. Outcome: Progressing Problem: Skin Integrity Goal: Skin integrity is maintained or improved Outcome: Progressing * Ana Castro, MINH/ONIN - 10/04/2022 10:35 AM CDT Nutrition Re-Assessment Brief Synopsis: Patient is at Nutrition Risk; Specific criteria can be found in assessment below Nutrition Plan: NPO + TF Tube Feeding Recommendations: Continuous: Jevity 1.5 at 65 ml/hr. +Jovan BID Provides 2340 kcal, 99 g protein, 336 g carbohydrate, 1186 ml free water. +50 ml q 6 hrs free water flush or per MD if on IVF +200 ml q4 hrs free water flush or per MD if not on additional fluids TF considerations: 1. Do not hold unless residuals >500 as recommended by ASPEN. 2. For critical care, If residuals >200, monitor for symptoms of intolerance. 3. Signs of intolerance include: lytes>NL, diarrhea, abdominal pain or distention. 4. Head of bed > 30?? Recommendations to Physician: see TF recs above Comments: Pt scheduled for reassessment. Pt receiving TF of Jevity 1.5 at goal of 65mL/hr, see TF recs above. 0mL gastric output reported 10/02; 265mL residuals reported this am; avoid holding TF unless residuals >500. +BM today. Will continue to follow. 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 Diet order accuracy Current diet order: NPO Current tube feeding order: Jevity 1.5 @65ml/hr+1 prostat packet Nutrition recommendation: alter/change nutrition order P.O.Intake for the past 48 hrs:No data recorded Food Allergies: No known food allergies GI Concerns: None Chewing/Swallowing: Dysphagia Pain affecting intake: No Admission weight: Weight: 63.5 kg (140 lb) (08/28/22 1101) Recent Weights/Methods 09/15/2022 0437 09/17/2022 0400 09/19/2022 0400 09/20/2022 0601 09/21/2022 0400 09/24/2022 0400 09/26/2022 2112 10/02/2022 040 Weight: 64 kg (141 lb) 61.5 kg (135 lb 8 oz) 63.5 kg (139 lb 14.4 oz) 63 kg (138 lb 12.8 oz) 63.1 kg (139 lb 3.2 oz) 61.5 kg (135 lb 8 oz) 61.5 kg (135 lb 9.6 oz) 60.8 kg (134 lb) Weight Method (Utilize Scales): Bedscale Bedscale Bedscale Bedscale -- -- -- Bedscale BMI: Body mass index is 18.17 kg/m??. BMI Range: Underweight Wt Comments: Weight appears to be trending down; monitoring Height: 182.9 cm (6') IBW/lb (Calculated) Male: 178 , Laboratory values reviewed. Recent Labs Component Name 10/04/22 0837 10/02/22 1015 09/30/22 0708 08/30/22 0039 08/28/22 2224 08/28/22 1251 07/01/22 1634 06/30/22 1039 BUN 12 14 14 - 11 12 - 7 CREATININE 0.47* 0.43* 0.48* - 0.50* 0.51* - 0.58* NA 141 142 139 - 142 139 - 140 POTASSIUM 4.3 4.2 4.1 - 3.9 4.5 - 4.0 CL 105 101 103 - 111* 103 - 107 CO2 26 27 27 - 24 27 - 24 GLUCOSE 117* 104 95 - 86 100 - 115 CALCIUM 10.0 10.0 10.1 - 8.8 9.8 - 9.5 PROT - - - - 6.0 7.5 - 6.2 ALB - - - - 2.0* 2.5* - 2.2* TBILI - - - - 0.6 0.5 - 0.3 ALKPHOS - - - - 67 88 - 65 ALT - - - - 5 6 - 5 AST - - - - 13 14 - 13 ANIONGAP 14 18 13 - 11 14 - 13 BCR 26* 33* 29* - 22 24* - 12 OSMOLALITY 293 295 288 - 293 288 - 289 AGRATIO - - - - 0.5* 0.5* - 0.6* EGFR >90 >90 >90 - >90 >90 [...] ??? enoxaparin (Lovenox) injection 40 mg ??? glucagon (Glucagen) injection 1 mg ??? glucose (Diabetic Use) (Dex4 Glucose) oral liquid ??? glucose (Diabetic Use) oral gel ??? glucose chew tablet 4 tablet ??? guaiFENesin (Robitussin) solution 10 mL ??? lacosamide (Vimpat) tablet 200 mg ??? levalbuterol (Xopenex) nebulizer solution 1.25 mg ??? levETIRAcetam (Keppra) tablet 2,000 mg ??? polyethylene glycol 3350 (Miralax) packet 17 g ??? scopolamine (Transderm-Scop) 1 patch And ??? scopolamine patch placement confirmation ??? senna-docusate (Senokot-S) tablet 1 tablet ??? sodium chloride (Inhalant) 7 % nebulizer solution 4 mL Skin/Wound: WDL Estimated Energy Needs: KCAL: 3242-5335 (35-45kcal/kg (ABW)) Protein (g): 110-140g (20% estimated kcal needs) Fluid (ml): 1ml/kcal Needs based on: Kcal/kg- (Comment) (ABW 61.5kg) Recommended Access Route: TF Nutrition Care Process (1) Nutrition Diagnostic Statement: Inadequate protein-energy intake related to:: decreased ability to consume or tolerate adequate food and/or fluids due to illness;swallowing difficulty as evidenced by:: estimated intake insufficient to meet requirements;BMI less than 19;unintentionalweight loss Nutrition Diagnostic Statement Progress: Nutrition problem continues Nutrition Intervention: Enteral nutrition: Monitoring: TF, BM, labs, meds, weight Evaluation: Nutrition Goal: Total intake will meet estimated nutrient needs Nutrition Goal Timeframe: Throughout stay Nutrition Goal Progress: Continue with current goal [id number] * Suzy Farmer RN - 10/04/2022 9:43 AM CDT Care Coordination Progress Note ?? Anticipated level of care at discharge: Custodial - Medicaid Discharge Plan: SNF. SW following for placement ?? READMISSION RISK SCORE is 28 at 9:01 AM 09/29/2022. ?? Anticipated Discharge Date: 10/01/22 ?? Patient/Family provided with list of resources? Yes Preferred Provider / High Quality Network List given?: Yes Reason for provider choice: Pt. choice - previous provider ?? Family Support (Name and Phone): Extended Emergency Contact Information Primary Emergency Contact: Adriane Pearson Mobile Relation: Sister Shop Mechanic needed? No Secondary Emergency Contact: Amarjit [facility] Relation: Brother ? Transportation at Discharge: Ambulance ?? Equipment at Home: Equipment at Home: Facility Equipment ?? List DME patient requires but does not have: ?? DME Provider: ?? Medication affordability concerns: No? Follow Up Appointment: ?? Transportation to MD: ?? Auth Number (if required): [place]: DME: Medications: Transportation: ?? Name: Suzy Farmer RN Phone: [phone] * Petra Fuentes MD - 10/04/2022 7:02 AM CDT Hospitalist Progress Note Subjective: No acute events overnight. Patient is awake and alert this morning, he was able to answer majority of my questions He denied any complaints Objective: BP 130/75 Pulse 65 Temp 97.3 ??F (36.3 ??C) (Oral) Resp 16 Ht 1.829 m (6') Wt 60.8 kg (134 lb) SpO2 99% Gen: NAD, mood appropriate HEENT: NCAT, EOMI, MMM, no JVD RESP: Clear to auscultation bilaterally CV: NI S1 and S2, No gallops, murmur GI: Soft and non tender, no rigidity and guarding, +BS, no HSM EXT: No edema. MAR reviewed today Relevant labs reviewed today. Creatinine Date Value Ref Range Status 10/02/2022 0.43 (L) 0.71 - 1.16 mg/dL Final Hemoglobin Date Value Ref Range Status 10/02/2022 11.3 (L) 12.0 - 17.6 g/dL Final Relevant imaging reviewed today Reviewed active orders today Assessment/Plan: History of CVA (cerebrovascular accident) (POA: Yes) Paroxysmal tachycardia, unspecified (CMS/HCC) (POA: Yes) Sepsis without acute organ dysfunction (CMS/HCC) (POA: Yes) Protein calorie malnutrition (CMS/HCC) (POA: Yes) Tachypnea (POA: Yes) Chronic respiratory failure with hypoxia (CMS/HCC) (POA: Yes) Chronic hypoxic respiratory failure s/p trach Seizure disorder, continue lacosamide, Keppra, Depakote and clobazam, seizure precaution 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, bedbound Hypertension Peripheral vascular disease S/p left AKA complicated by nonhealing stage II ulcer, present on admission, skin care precaution, wound care Normocytic anemia Recurrent aspiration pneumonia s/p PEG tube, currently strict NPO Staph capitis bacteremia, completed antibiotic regimen UTI, completed antibiotic regimen Recent Pseudomonal pneumonia, completed antibiotic regimen Pressure ulcer on right heel, present on admission Wound care Reviewed recent Wound Care images under the media tab, pressure ulcer on right heel healing well Skin care precaution Zenker diverticulum s/p diverticulectomy Hyperlipidemia, continue Lipitor Diet - strict NPO, tube feeding DVT PPx: Lovenox Code Status: Full PT/OT consulted Fall & aspiration precautions Discussed with care coordination team Called patient's sister, his POA to update about the patient's health status and treatment plan. Her questions and concerns were addressed in detail. Discussed patient at multidisciplinary round. Total time spent more than 38 minutes, more than 50% spent for coordinating patient care and counseling about treatment plan. Petra Fuentes MD, MRCP (), FACP, FRCP Type[employer]ensed massage therapist Department of Internal Medicine Feel free to text page me through [employer]. * Ramonita Oropeza RN - 10/04/2022 1:47 AM CDT Problem: Impaired Gas Exchange Goal: Resp rate/effort will be within specified limits Outcome: Progressing Problem: Ineffective Airway Clearance Goal: Patent airway Outcome: Progressing Problem: Fall Risk Goal: Fall risk and fall related injury risk are minimized (interventions related to the fall risk can be found in the flowsheet documentation) Outcome: Progressing Problem: Nutrient: Inadequate protein-energy intake Goal: Total intake will meet estimated nutrient needs Outcome: Progressing Problem: Oxygenation/Respiratory Function Goal: Patent airway Outcome: Progressing Goal: Respiratory rate/effort will be within specified limits Outcome: Progressing Problem: Care of Tracheostomy Goal: Tracheostomy tube and site will be maintained Outcome: Progressing Problem: Potential for Infection Goal: Insertion site without signs/symptoms of infection Outcome: Progressing Problem: Knowledge Deficit Goal: Patient/Significant other demonstrates understanding of Tracheostomy Outcome: Progressing Problem: Communication/Dysarthria Goal: STG - Patient will tolerate PMV trials Outcome: Progressing Problem: Pain/Discomfort Goal: Patient exhibits reduced pain/discomfort as evidenced by pain scores Outcome: Progressing Goal: Patient uses pharmacological and non-pharmacological pain management strategies. Outcome: Progressing Goal: Patient verbalizes acceptable level of pain relief and ability to engage in desired activity. Outcome: Progressing Problem: Skin Integrity Goal: Skin integrity is maintained or improved Outcome: Progressing * Maia Hoskins RN - 10/03/2022 7:22 PM CDT PATIENT IS HARD STICK , COULD NOT FIND ANY VISIBLE VEINS FOR A NEW IV. PASS IT TO [facility]NA[facility] NURSE . * Maia Hoskins RN - 10/03/2022 12:19 PM CDT Problem: Impaired Gas Exchange Goal: Resp rate/effort will be within specified limits Outcome: Progressing Problem: Ineffective Airway Clearance Goal: Patent airway Outcome: Progressing Problem: Fall Risk Goal: Fall risk and fall related injury risk are minimized (interventions related to the fall risk can be found in the flowsheet documentation) Outcome: Progressing Problem: Nutrient: Inadequate protein-energy intake Goal: Total intake will meet estimated nutrient needs Outcome: Progressing Problem: Oxygenation/Respiratory Function Goal: Patent airway Outcome: Progressing Goal: Respiratory rate/effort will be within specified limits Outcome: Progressing Problem: Care of Tracheostomy Goal: Tracheostomy tube and site will be maintained Outcome: Progressing Problem: Potential for Infection Goal: Insertion site without signs/symptoms of infection Outcome: Progressing Problem: Knowledge Deficit Goal: Patient/Significant other demonstrates understanding of Tracheostomy Outcome: Progressing Problem: Communication/Dysarthria Goal: STG - Patient will tolerate PMV trials Outcome: Progressing Problem: Pain/Discomfort Goal: Patient exhibits reduced pain/discomfort as evidenced by pain scores Outcome: Progressing Goal: Patient uses pharmacological and non-pharmacological pain management strategies. Outcome: Progressing Goal: Patient verbalizes acceptable level of pain relief and ability to engage in desired activity. Outcome: Progressing Problem: Skin Integrity Goal: Skin integrity is maintained or improved Outcome: Progressing * Petra Fuentes MD - 10/03/2022 7:17 AM CDT Hospitalist Progress Note Subjective: No acute events overnight. Patient is sleepy this morning, was able to wake up with verbal commands She was able to answer few of my questions. He denied any complaints Objective: BP 126/77 Pulse 88 Temp 97.5 ??F (36.4 ??C) (Oral) Resp 18 Ht 1.829 m (6') Wt 60.8 kg (134 lb) SpO2 95% Gen: NAD, mood appropriate HEENT: NCAT, EOMI, MMM, no JVD RESP: Clear to auscultation bilaterally CV: NI S1 and S2, No gallops, murmur GI: Soft and non tender, no rigidity and guarding, +BS, no HSM EXT: No edema. MAR reviewed today Relevant labs reviewed today. Creatinine Date Value Ref Range Status 10/02/2022 0.43 (L) 0.71 - 1.16 mg/dL Final Hemoglobin Date Value Ref Range Status 10/02/2022 11.3 (L) 12.0 - 17.6 g/dL Final Relevant imaging reviewed today Reviewed active orders today Assessment/Plan: History of CVA (cerebrovascular accident) (POA: Yes) Paroxysmal tachycardia, unspecified (CMS/HCC) (POA: Yes) Sepsis without acute organ dysfunction (CMS/HCC) (POA: Yes) Protein calorie malnutrition (CMS/HCC) (POA: Yes) Tachypnea (POA: Yes) Chronic respiratory failure with hypoxia (CMS/HCC) (POA: Yes) Chronic hypoxic respiratory failure s/p trach Seizure disorder, continue lacosamide, Keppra, Depakote and clobazam, seizure precaution 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, bedbound Hypertension Peripheral vascular disease S/p left AKA complicated by nonhealing stage II ulcer, present on admission, skin care precaution, wound care Normocytic anemia Recurrent aspiration pneumonia s/p peg tube, currently strict NPO Staph capitis bacteremia, completed antibiotic regimen UTI, completed antibiotic regimen Pseudomonal pneumonia, completed antibiotic regimen Pressure ulcer on right heel, present on admission Wound care Skin care precaution Zenker diverticulum s/p diverticulectomy Hyperlipidemia, continue Lipitor Diet - strict NPO, tube feeding DVT PPx: Lovenox Code Status: Full PT/OT consulted Fall & aspiration precautions Discussed with care coordination team Petra Fuentes MD, MRCP ([place]), FACP, FRCP [employer]ensed massage therapist Department of Internal Medicine Feel free to text page me through [employer]. * Ramonita Oropeza RN - 10/03/2022 1:34 AM CDT Problem: Impaired Gas Exchange Goal: Resp rate/effort will be within specified limits Outcome: Progressing Problem: Ineffective Airway Clearance Goal: Patent airway Outcome: Progressing Problem: Fall Risk Goal: Fall risk and fall related injury risk are minimized (interventions related to the fall risk can be found in the flowsheet documentation) Outcome: Progressing Problem: Nutrient: Inadequate protein-energy intake Goal: Total intake will meet estimated nutrient needs Outcome: Progressing Problem: Oxygenation/Respiratory Function Goal: Patent airway Outcome: Progressing Goal: Respiratory rate/effort will be within specified limits Outcome: Progressing Problem: Care of Tracheostomy Goal: Tracheostomy tube and site will be maintained Outcome: Progressing Problem: Potential for Infection Goal: Insertion site without signs/symptoms of infection Outcome: Progressing Problem: Knowledge Deficit Goal: Patient/Significant other demonstrates understanding of Tracheostomy Outcome: Progressing Problem: Communication/Dysarthria Goal: STG - Patient will tolerate PMV trials Outcome: Progressing Problem: Pain/Discomfort Goal: Patient exhibits reduced pain/discomfort as evidenced by pain scores Outcome: Progressing Goal: Patient uses pharmacological and non-pharmacological pain management strategies. Outcome: Progressing Goal: Patient verbalizes acceptable level of pain relief and ability to engage in desired activity. Outcome: Progressing Problem: Skin Integrity Goal: Skin integrity is maintained or improved Outcome: Progressing * Maia Hoskins RN - 10/02/2022 1:29 PM CDT Problem: Impaired Gas Exchange Goal: Resp rate/effort will be within specified limits Outcome: Progressing Problem: Ineffective Airway Clearance Goal: Patent airway Outcome: Progressing Problem: Fall Risk Goal: Fall risk and fall related injury risk are minimized (interventions related to the fall risk can be found in the flowsheet documentation) Outcome: Progressing Problem: Nutrient: Inadequate protein-energy intake Goal: Total intake will meet estimated nutrient needs Outcome: Progressing Problem: Oxygenation/Respiratory Function Goal: Patent airway Outcome: Progressing Goal: Respiratory rate/effort will be within specified limits Outcome: Progressing Problem: Care of Tracheostomy Goal: Tracheostomy tube and site will be maintained Outcome: Progressing Problem: Potential for Infection Goal: Insertion site without signs/symptoms of infection Outcome: Progressing Problem: Knowledge Deficit Goal: Patient/Significant other demonstrates understanding of Tracheostomy Outcome: Progressing Problem: Communication/Dysarthria Goal: STG - Patient will tolerate PMV trials Outcome: Progressing Problem: Pain/Discomfort Goal: Patient exhibits reduced pain/discomfort as evidenced by pain scores Outcome: Progressing Goal: Patient uses pharmacological and non-pharmacological pain management strategies. Outcome: Progressing Goal: Patient verbalizes acceptable level of pain relief and ability to engage in desired activity. Outcome: Progressing Problem: Skin Integrity Goal: Skin integrity is maintained or improved Outcome: Progressing * Petra Fuentes MD - 10/02/2022 8:16 AM CDT Hospitalist Progress Note Subjective: No acute events overnight. Patient is sleepy this morning, was able to wake up with verbal commands She was able to answer few of my questions He denied any complaints Objective: BP 127/79 Pulse 79 Temp 97.5 ??F (36.4 ??C) (Axillary) Resp 22 Ht 1.829 m (6') Wt 60.8 kg(134 lb) SpO2 98% Gen: NAD, mood appropriate HEENT: NCAT, EOMI, MMM, no JVD RESP: Clear to auscultation bilaterally CV: NI S1 and S2, No gallops, murmur GI: Soft and non tender, no rigidity and guarding, +BS, no HSM EXT: No edema. MAR reviewed today Relevant labs reviewed today. Creatinine Date Value Ref Range Status 09/30/2022 0.48 (L) 0.71 - 1.16 mg/dL Final Hemoglobin Date Value Ref Range Status 09/30/2022 11.1 (L) 12.0 - 17.6 g/dL Final Relevant imaging reviewed today Reviewed active orders today Assessment/Plan: History of CVA (cerebrovascular accident) (POA: Yes) Paroxysmal tachycardia, unspecified (CMS/HCC) (POA: Yes) Sepsis without acute organ dysfunction (CMS/HCC) (POA: Yes) Protein calorie malnutrition (CMS/HCC) (POA: Yes) Tachypnea (POA: Yes) Chronic respiratory failure with hypoxia (CMS/HCC) (POA: Yes) Chronic hypoxic respiratory failure s/p trach Seizure disorder, continue lacosamide, Keppra, Depakote and clobazam, seizure precaution 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, bedbound Hypertension Peripheral vascular disease S/p left AKA complicated by nonhealing stage II ulcer, present on admission, skin care precaution, wound care Normocytic anemia Recurrent aspiration pneumonia s/p peg tube, currently strict NPO Staph capitis bacteremia, completed antibiotic regimen UTI, completed antibiotic regimen Pseudomonal pneumonia, completed antibiotic regimen Pressure ulcer on right heel, present on admission Wound care Skin care precaution Zenker diverticulum s/p diverticulectomy Hyperlipidemia, continue Lipitor Diet - strict NPO, tube feeding DVT PPx: Lovenox Code Status: Full PT/OT consulted Fall & aspiration precautions Discussed with care coordination team Discussed patient at the multidisciplinary rounding Petra Fuentes MD, MRCP ([place]), FACP, FRCP [employer]ensed massage therapist Department of Internal Medicine Feel free to text page me through [employer]. * Destiney Cruz RN - 10/01/2022 10:32 PM CDT Problem: Impaired Gas Exchange Goal: Resp rate/effort will be within specified limits Outcome: Progressing Problem: Ineffective Airway Clearance Goal: Patent airway Outcome: Progressing Problem: Fall Risk Goal: Fall risk and fall related injury risk are minimized (interventions related to the fall risk can be found in the flowsheet documentation) Outcome: Progressing Problem: Nutrient: Inadequate protein-energy intake Goal: Total intake will meet estimated nutrient needs Outcome: Progressing Problem: Oxygenation/Respiratory Function Goal: Patent airway Outcome: Progressing Goal: Respiratory rate/effort will be within specified limits Outcome: Progressing Problem: Care of Tracheostomy Goal: Tracheostomy tube and site will be maintained Outcome: Progressing Problem: Potential for Infection Goal: Insertion site without signs/symptoms of infection Outcome: Progressing Problem: Knowledge Deficit Goal: Patient/Significant other demonstrates understanding of Tracheostomy Outcome: Progressing Problem: Communication/Dysarthria Goal: STG - Patient will tolerate PMV trials Outcome: Progressing Problem: Pain/Discomfort Goal: Patient exhibits reduced pain/discomfort as evidenced by pain scores Outcome: Progressing Goal: Patient uses pharmacological and non-pharmacological pain management strategies. Outcome: Progressing Goal: Patient verbalizes acceptable level of pain relief and ability to engage in desired activity. Outcome: Progressing Problem: Skin Integrity Goal: Skin integrity is maintained or improved Outcome: Progressing * Gaurav Juarez MSW - 10/01/2022 3:12 PM CDT Tuesday Summary Note Discharge Level of Care:SNF Discharge Destination:[facility] [place] Phone Number: Fax Number: Insurance Auth: Anticipated Mode of Transportation:EMS Contacts (Name, relationship, phone #): Sister Veda [phone] Anticipated DC Date: Pending Needs: Comments: CLARITA Ram 10/01/2022 * Suzy Farmer RN - 10/01/2022 1:01 PM CDT Care Coordination Progress Note Anticipated level of care at discharge: Custodial - Medicaid Discharge Plan: LASHON spoke with sister Adriane and she reports she did go to the [facility] this am. She will get back with LASHON SW sent additional referral to [facility] in [place] per sisters request READMISSION RISK SCORE is 28 at 12:29 PM 10/06/2022. Anticipated Discharge Date: 10/08/22 Patient/Family provided with list of resources? Yes Preferred Provider / High Quality Network List given?: Yes Reason for provider choice: Pt. choice - previous provider Family Support (Name and Phone): Extended Emergency Contact Information Primary Emergency Contact: Adriane Pearson Mobile Relation: Sister Shop Mechanic needed? No Secondary Emergency Contact: Amarjit [facility] Relation: Brother Patient is alert & orientated or has capacity for decision making: Yes Transportation at Discharge: Ambulance Equipment at Home: Equipment at Home: Facility Equipment List DME patient requires but does not have: DME Provider: Medication affordability concerns: No Follow Up Appointment: Transportation to MD: Auth Number (if required): [place]: DME: Medications: Transportation: Name: Suzy Farmer RN Phone: [phone] * Petra Fuentes MD - 10/01/2022 7:41 AM CDT Hospitalist Progress Note Subjective: No acute events overnight. Patient is much alert and oriented then last week He denied any complaints Was able to have small conversation Objective: BP 124/75 Pulse 99 Temp 97.9 ??F (36.6 ??C) (Axillary) Resp 18 Ht 1.829 m (6') Wt 61.5 kg(135 lb 9.6 oz) SpO2 96% Gen: NAD, mood appropriate HEENT: NCAT, EOMI, MMM, no JVD RESP: Clear to auscultation bilaterally CV: NI S1 and S2, No gallops, murmur GI: Soft and non tender, no rigidity and guarding, +BS, no HSM EXT: No edema. MAR reviewed today Relevant labs reviewed today. Creatinine Date Value Ref Range Status 09/30/2022 0.48 (L) 0.71 - 1.16 mg/dL Final Hemoglobin Date Value Ref Range Status 09/30/2022 11.1 (L) 12.0 - 17.6 g/dL Final Relevant imaging reviewed today Reviewed active orders today Assessment/Plan: History of CVA (cerebrovascular accident) (POA: Yes) Paroxysmal tachycardia, unspecified (CMS/HCC) (POA: Yes) Sepsis without acute organ dysfunction (CMS/HCC) (POA: Yes) Protein calorie malnutrition (CMS/HCC) (POA: Yes) Tachypnea (POA: Yes) Chronic respiratory failure with hypoxia (CMS/HCC) (POA: Yes) Chronic hypoxic respiratory failure s/p trach Seizure disorder, continue lacosamide, Keppra, Depakote and clobazam, seizure precaution 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, bedbound Hypertension Peripheral vascular disease S/p left AKA complicated by nonhealing stage II ulcer, present on admission, skin care precaution, wound care Normocytic anemia Recurrent aspiration pneumonia s/p peg tube, currently strict NPO Staph capitis bacteremia, completed antibiotic regimen UTI, completed antibiotic regimen Pseudomonal pneumonia, completed antibiotic regimen Pressure ulcer on right heel, present on admission Wound care Skin care precaution Zenker diverticulum s/p diverticulectomy Hyperlipidemia, continue Lipitor Diet - strict NPO, tube feeding DVT PPx: Lovenox Code Status: Full PT/OT consulted Fall & aspiration precautions Discussed with care coordination team Discussed patient at the multidisciplinary rounding Discussed with Patient's sister. Her questions & concerns were addressed. Total time spent more than 38 minutes, more than 50% spent for coordinating patient care and counseling about treatment plan. Petra Fuentes MD, MRCP (), FACP, FRCP [employer] W[employer]ensed massage therapist Department of Internal Medicine Feel free to text page me through [employer]. * Sushila Mckeon RN - 10/01/2022 4:43 AM CDT Problem: Impaired Gas Exchange Goal: Resp rate/effort will be within specified limits Outcome: Progressing Problem: Ineffective Airway Clearance Goal: Patent airway Outcome: Progressing Problem: Fall Risk Goal: Fall risk and fall related injury risk are minimized (interventions related to the fall risk can be found in the flowsheet documentation) Outcome: Progressing Problem: Nutrient: Inadequate protein-energy intake Goal: Total intake will meet estimated nutrient needs Outcome: Progressing Problem: Oxygenation/Respiratory Function Goal: Patent airway Outcome: Progressing Goal: Respiratory rate/effort will be within specified limits Outcome: Progressing Problem: Care of Tracheostomy Goal: Tracheostomy tube and site will be maintained Outcome: Progressing Problem: Potential for Infection Goal: Insertion site without signs/symptoms of infection Outcome: Progressing Problem: Knowledge Deficit Goal: Patient/Significant other demonstrates understanding of Tracheostomy Outcome: Progressing Problem: Communication/Dysarthria Goal: STG - Patient will tolerate PMV trials Outcome: Progressing Problem: Pain/Discomfort Goal: Patient exhibits reduced pain/discomfort as evidenced by pain scores Outcome: Progressing Goal: Patient uses pharmacological and non-pharmacological pain management strategies. Outcome: Progressing Goal: Patient verbalizes acceptable level of pain relief and ability to engage in desired activity. Outcome: Progressing Problem: Skin Integrity Goal: Skin integrity is maintained or improved Outcome: Progressing * Suzy Farmer RN - 09/30/2022 1:28 PM CDT Care Coordination Progress Note Anticipated level of care at discharge: Custodial - Medicaid Discharge Plan: CM attempted to speak with pt sister Adriane [phone] to discuss dc plan. She is not able to speak at this time d/t in the family. She will call CM when she is available READMISSION RISK SCORE is 28 at 12:30 PM 10/06/2022. Anticipated Discharge Date: 10/08/22 Patient/Family provided with list of resources? Yes Preferred Provider / High Quality Network List given?: Yes Reason for provider choice: Pt. choice - previous provider Family Support (Name and Phone): Extended Emergency Contact Information Primary Emergency Contact: Adriane Pearson Mobile Relation: Sister Shop Mechanic needed? No Secondary Emergency Contact: Amarjit [facility] Relation: Brother Patient is alert & orientated or has capacity for decision making: Yes If No , Legal or Designated Decision Maker: N/A Transportation at Discharge: Ambulance Equipment at Home: Equipment at Home: Facility Equipment List DME patient requires but does not have: DME Provider: Medication affordability concerns: No Follow Up Appointment: Transportation to MD: Katerina Number (if required): NH: DME: Medications: Transportation: Name: Suzy Farmer RN Phone: [phone] * Petra Fuentes MD - 09/30/2022 7:26 AM CDT Hospitalist Progress Note Subjective: No acute events overnight. Patient is much alert and oriented then last week He denied any complaints Was able to have small conversation Objective: BP 115/80 Pulse 106 Temp 97.7 ??F (36.5 ??C) (Axillary) Resp 18 Ht 1.829 m (6') Wt 61.5 kg (135 lb 9.6 oz) SpO2 97% Gen: NAD, mood appropriate HEENT: NCAT, EOMI, MMM, no JVD RESP: Clear to auscultation bilaterally CV: NI S1 and S2, No gallops, murmur GI: Soft and non tender, no rigidity and guarding, +BS, no HSM EXT: No edema. MAR reviewed today Relevant labs reviewed today. Creatinine Date Value Ref Range Status 09/28/2022 0.44 (L) 0.71 - 1.16 mg/dL Final Hemoglobin Date Value Ref Range Status 09/28/2022 11.1 (L) 12.0 - 17.6 g/dL Final Relevant imaging reviewed today Reviewed active orders today Assessment/Plan: History of CVA (cerebrovascular accident) (POA: Yes) Paroxysmal tachycardia, unspecified (CMS/HCC) (POA: Yes) Sepsis without acute organ dysfunction (CMS/HCC) (POA: Yes) Protein calorie malnutrition (CMS/HCC) (POA: Yes) Tachypnea (POA: Yes) Chronic respiratory failure with hypoxia (CMS/HCC) (POA: Yes) Chronic hypoxic respiratory failure s/p trach Seizure disorder, continue lacosamide, Keppra, Depakote and clobazam, seizure precaution 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, bedbound Hypertension Peripheral vascular disease S/p left AKA complicated by nonhealing stage II ulcer, present on admission, skin care precaution, wound care Normocytic anemia Recurrent aspiration pneumonia s/p peg tube, currently strict NPO Staph capitis bacteremia, completed antibiotic regimen UTI, completed antibiotic regimen Pseudomonal pneumonia, completed antibiotic regimen Pressure ulcer on right heel, present on admission Wound care Skin care precaution Zenker diverticulum s/p diverticulectomy Hyperlipidemia, continue Lipitor Diet - strict NPO, tube feeding DVT PPx: Lovenox Code Status: Full PT/OT consulted Fall & aspiration precautions Discussed with care coordination team Discussed patient at the multidisciplinary rounding Petra Fuentes MD, MRCP ([place]), FACP, FRCP [employer]licensed massage therapist Department of Internal Medicine Feel free to text page me through [employer]. * Wood Charles RN - 09/30/2022 3:03 AM CDT Per RT, patient's trach collar settings must remain at FiO2 28% with an absolute minimum of 6L. Titrating below 6L does not give patient appropriate humidification. Patient is getting humidification due to history of mucus plugs. Patient needs humidification to keep secretions thin. * Ramonita Oropeza RN - 09/30/2022 2:03 AM CDT Problem: Impaired Gas Exchange Goal: Resp rate/effort will be within specified limits Outcome: Progressing Problem: Ineffective Airway Clearance Goal: Patent airway Outcome: Progressing Problem: Fall Risk Goal: Fall risk and fall related injury risk are minimized (interventions related to the fall risk can be found in the flowsheet documentation) Outcome: Progressing Problem: Nutrient: Inadequate protein-energy intake Goal: Total intake will meet estimated nutrient needs Outcome: Progressing Problem: Oxygenation/Respiratory Function Goal: Patent airway Outcome: Progressing Goal: Respiratory rate/effort will be within specified limits Outcome: Progressing Problem: Care of Tracheostomy Goal: Tracheostomy tube and site will be maintained Outcome: Progressing Problem: Potential for Infection Goal: Insertion site without signs/symptoms of infection Outcome: Progressing Problem: Knowledge Deficit Goal: Patient/Significant other demonstrates understanding of Tracheostomy Outcome: Progressing Problem: Communication/Dysarthria Goal: STG - Patient will tolerate PMV trials Outcome: Progressing Problem: Pain/Discomfort Goal: Patient exhibits reduced pain/discomfort as evidenced by pain scores Outcome: Progressing Goal: Patient uses pharmacological and non-pharmacological pain management strategies. Outcome: Progressing Goal: Patient verbalizes acceptable level of pain relief and ability to engage in desired activity. Outcome: Progressing Problem: Skin Integrity Goal: Skin integrity is maintained or improved Outcome: Progressing * Ramnoita Oropeza RN - 09/30/2022 1:12 AM CDT Patient with audible secretions and oxygen saturation at 92% on assessment, encouraged patient to cough and performed oral suction. Patient was unable to clear secretions by cough only. Upon trachealsuctioning of patient, met resistance at the entrance of the trach due to viscous secretions. Primary RN and dry pan charger present at bedside for tracheal suctioning, sterile technique maintained. RT informed and performed assessment at the bedside. * Aan Castro RD/NOLAN - 09/29/2022 3:14 PM CDT Nutrition Re-Assessment Brief Synopsis: Patient is at Nutrition Risk; Specific criteria can be found in assessment below Nutrition Plan: NPO + TF Tube Feeding Recommendations: Continuous: Jevity 1.5 at 70 ml/hr. +Jovan BID Provides 2520 kcal, 107 g protein, 362 g carbohydrate, 1277 ml free water. +50 ml q 6 hrs free water flush or per MD if on IVF +200 ml q4 hrs free water flush or per MD if not on additional fluids Recommendations to Physician: Alter TF order, see TF recs above Comments: Pt scheduled for reassessment. Pt receiving TF of Jevity 1.5 at goal of 65mL/hr; Recommend increasing goal rate to better meet estimated energy and protein needs, see TF recs above. 0mL gastric output reported 5/2; 10mL residuals reported 5/2. LBM reported 5/3. Will continue to follow. 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 Diet order accuracy Current diet order: NPO Current tube feeding order: Jevity 1.5 @65ml/hr+1 prostat packet Nutrition recommendation: alter/change nutrition order P.O.Intake for the past 48 hrs:No data recorded Food Allergies: No known food allergies GI Concerns: None Chewing/Swallowing: Dysphagia Pain affecting intake: No Admission weight: Weight: 63.5 kg (140 lb) (08/28/22 1101) Recent Weights/Methods 09/14/2022 0352 09/15/2022 0437 09/17/2022 0400 09/19/2022 0400 09/20/2022 0601 09/21/2022 0400 09/24/2022 0400 09/26/20222111 Weight: 60 kg (132 lb 3.2 oz) 64 kg (141 lb) 61.5 kg (135 lb 8 oz) 63.5 kg (139 lb 14.4 oz) 63 kg (138 lb 12.8 oz) 63.1 kg (139 lb 3.2 oz) 61.5 kg (135 lb 8 oz) 61.5 kg (135 lb 9.6 oz) Weight Method (Utilize Scales): Bedscale Bed[facility] -- -- BMI: Body mass index is 18.39 kg/m??. BMI Range: Underweight Wt Comments: Weight appears to be trending down; recommend increasing TF rate, see recs above Height: 182.9 cm (6') IBW/lb (Calculated) Male: 178 , Laboratory values reviewed. Recent Labs Component Name 09/28/22 0650 09/26/22 0718 09/24/22 0759 08/30/22 0039 08/28/22 2224 08/28/22 1251 07/01/22 1634 06/30/22 1039 BUN 11 16 14 - 11 12 - 7 CREATININE 0.44* 0.45* 0.42* - 0.50* 0.51* - 0.58* NA 139 141 142 - 142 139 - 140 POTASSIUM 4.5 4.5 4.8* - 3.9 4.5 - 4.0 CL 102 104 105 - 111* 103 - 107 CO2 28 26 22 - 24 27 - 24 GLUCOSE 98 100 115 - 86 100 - 115 CALCIUM 10.0 10.4* 10.2 - 8.8 9.8 - 9.5 PROT - - - - 6.0 7.5 - 6.2 ALB - - - - 2.0* 2.5* - 2.2* TBILI - - - - 0.6 0.5 - 0.3 ALKPHOS - - - - 67 88 - 65 ALT - - - - 5 6 - 5 AST - - - - 13 14 - 13 ANIONGAP 14 16 20* - 11 14 - 13 BCR 25* 36* 33* - 22 24* - 12 OSMOLALITY 287 293 295 - 293 288 - 289 AGRATIO - - - - 0.5* 0.5* - 0.6* EGFR >90 >90 >90 - >90 >90 [...] ??? enoxaparin (Lovenox) injection 40 mg ??? glucagon (Glucagen) injection 1 mg ??? glucose (Diabetic Use) (Dex4 Glucose) oral liquid ??? glucose (Diabetic Use) oral gel ??? glucose chew tablet 4 tablet ??? guaiFENesin (Robitussin) solution 10 mL ??? lacosamide (Vimpat) tablet 200 mg ??? levalbuterol (Xopenex) nebulizer solution 1.25 mg ??? levETIRAcetam (Keppra) tablet 2,000 mg ??? polyethylene glycol 3350 (Miralax) packet 17 g ??? scopolamine (Transderm-Scop) 1 patch And ??? scopolamine patch placement confirmation ??? senna-docusate (Senokot-S) tablet 1 tablet ??? sodium chloride (Inhalant) 7 % nebulizer solution 4 mL Skin/Wound: WDL Estimated Energy Needs: KCAL: 7965-6006 (35-45kcal/kg (ABW)) Protein (g): 110-140g (20% estimated kcal needs) Fluid (ml): 1ml/kcal Needs based on: Kcal/kg- (Comment) (ABW 61.5kg) Recommended Access Route: TF Nutrition Care Process (1) Nutrition Diagnostic Statement: Inadequate protein-energy intake related to:: decreased ability to consume or tolerate adequate food and/or fluids due to illness;swallowing difficulty as evidenced by:: estimated intake insufficient to meet requirements;BMI less than 19;unintentionalweight loss Nutrition Diagnostic Statement Progress: Nutrition problem continues Nutrition Intervention: Enteral nutrition: Monitoring: TF, BM, labs, meds, weight Evaluation: Nutrition Goal: Total intake will meet estimated nutrient needs Nutrition Goal Timeframe: Throughout stay Nutrition Goal Progress: Continue with current goal Crscom [id number] * Libertad Small RN - 09/29/2022 12:49 PM CDT ALFRED Villarreal informed me the patient's sisters wanted to speak with me. Upon entering the room they werevery upset with their brother's care and wanted me to listen to their concerns. I did as as such and found that their main concerns were a wound that he had on his foot which they stated he developedin the hospital, and his oxygen for his trach. I showed them the wound photos which [facility] and explained that the wound nurses saw him and provided wound care recommendations which Iexplained to them. They then stated that he must've gotten the wound at his previous facility. I then explained how the oxygen works for his trach and that he has been at his baseline and we provideda scopolamine patch to help with the secretions. I apologized for any concerns they have had and informed then that if they have any others that I would be happy to assist in the future. They were very relieved after our conversation and said they were very grateful for talking with me and thanked me for the explanations. * Cherelle Pantoja RN - 09/29/2022 9:47 AM CDT Pt alert and arouses easily. Pt appears comfortable and is stable. VSS, afebrile. Pt denies pain. IV site assessed, intact. Continue to manage airway, Oxygen saturation to maintain > 92%. Pt is currently on FIO2 28% and oxygen 4 L on trach mask collar. RT f/u with respiratory care and nebulizer as ordered by MD. Continue to change position every 2 hours to promote skin integrity and ongoing skin care. Monitor for changes in condition, safety, right heel wound and pain and comfort. Educated pt on oxygen therapy and safety. Pt verbalized understanding. Problem: Impaired Gas Exchange Goal: Resp rate/effort will be within specified limits Outcome: Progressing Problem: Ineffective Airway Clearance Goal: Patent airway Outcome: Progressing Problem: Fall Risk Goal: Fall risk and fall related injury risk are minimized (interventions related to the fall risk can be found in the flowsheet documentation) Outcome: Progressing Problem: Nutrient: Inadequate protein-energy intake Goal: Total intake will meet estimated nutrient needs Outcome: Progressing Problem: Oxygenation/Respiratory Function Goal: Patent airway Outcome: Progressing Goal: Respiratory rate/effort will be within specified limits Outcome: Progressing Problem: Care of Tracheostomy Goal: Tracheostomy tube and site will be maintained Outcome: Progressing Problem: Potential for Infection Goal: Insertion site without signs/symptoms of infection Outcome: Progressing Problem: Knowledge Deficit Goal: Patient/Significant other demonstrates understanding of Tracheostomy Outcome: Progressing Problem: Communication/Dysarthria Goal: STG - Patient will tolerate PMV trials Outcome: Progressing Problem: Pain/Discomfort Goal: Patient exhibits reduced pain/discomfort as evidenced by pain scores Outcome: Progressing Goal: Patient uses pharmacological and non-pharmacological pain management strategies. Outcome: Progressing Goal: Patient verbalizes acceptable level of pain relief and ability to engage in desired activity. Outcome: Progressing Problem: Skin Integrity Goal: Skin integrity is maintained or improved Outcome: Progressing * Suzy Farmer RN - 09/29/2022 9:01 AM CDT Care Coordination Progress Note Anticipated level of care at discharge: Custodial - Medicaid Pt new to my caseload Discharge Plan: SNF. SW following for placement READMISSION RISK SCORE is 28 at 9:01 AM 09/29/2022. Anticipated Discharge Date: 10/01/22 Patient/Family provided with list of resources? Yes Preferred Provider / High Quality Network List given?: Yes Reason for provider choice: Pt. choice - previous provider Family Support (Name and Phone): Extended Emergency Contact Information Primary Emergency Contact: BabakAdriane Mobile Relation: Sister Shop Mechanic needed? No Secondary Emergency Contact: Amarjit [facility] Relation: Brother Transportation at Discharge: Ambulance Equipment at Home: Equipment at Home: Facility Equipment List DME patient requires but does not have: DME Provider: Medication affordability concerns: No Follow Up Appointment: Transportation to MD: Auth Number (if required): NH: DME: Medications: Transportation: Name: Suzy Farmer RN Phone: [phone] * Petra Fuentes MD - 09/29/2022 7:08 AM CDT Hospitalist Progress Note Subjective: No acute events overnight. Patient is much alert and oriented then last week He denied any complaints Was able to have small conversation Objective: BP 119/65 Pulse 76 Temp 97.5 ??F (36.4 ??C) (Axillary) Resp 18 Ht 1.829 m (6') Wt 61.5 kg(135 lb 9.6 oz) SpO2 99% Gen: NAD, mood appropriate HEENT: NCAT, EOMI, MMM, no JVD RESP: Clear to auscultation bilaterally CV: NI S1 and S2, No gallops, murmur GI: Soft and non tender, no rigidity and guarding, +BS, no HSM EXT: No edema. MAR reviewed today Relevant labs reviewed today. Creatinine Date Value Ref Range Status 09/28/2022 0.44 (L) 0.71 - 1.16 mg/dL Final Hemoglobin Date Value Ref Range Status 09/28/2022 11.1 (L) 12.0 - 17.6 g/dL Final Relevant imaging reviewed today Reviewed active orders today Assessment/Plan: History of CVA (cerebrovascular accident) (POA: Yes) Paroxysmal tachycardia, unspecified (CMS/HCC) (POA: Yes) Sepsis without acute organ dysfunction (CMS/HCC) (POA: Yes) Protein calorie malnutrition (CMS/HCC) (POA: Yes) Tachypnea (POA: Yes) Chronic respiratory failure with hypoxia (CMS/HCC) (POA: Yes) Chronic hypoxic respiratory failure s/p trach Seizure disorder, continue lacosamide, Keppra, Depakote and clobazam, seizure precaution 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, bedbound Hypertension Peripheral vascular disease S/p left AKA complicated by nonhealing stage II ulcer, present on admission, skin care precaution, wound care Normocytic anemia Recurrent aspiration pneumonia s/p peg tube, currently strict NPO Staph capitis bacteremia, completed antibiotic regimen UTI, completed antibiotic regimen Pseudomonal pneumonia, completed antibiotic regimen Pressure ulcer on right heel, present on admission Wound care Skin care precaution Zenker diverticulum s/p diverticulectomy Hyperlipidemia, continue Lipitor Diet - strict NPO, tube feeding DVT PPx: Lovenox Code Status: Full PT/OT consulted Fall & aspiration precautions Discussed with care coordination team Discussed patient at the multidisciplinary rounding Petra Fuentes MD, MRCP (), FACP, FRCP Type[employer] Winderlicensed massage therapist Department of Internal Medicine Feel free to text page me through [employer]. * Ramonita Oropeza RN - 09/29/2022 2:21 AM CDT Problem: Impaired Gas Exchange Goal: Resp rate/effort will be within specified limits Outcome: Progressing Problem: Ineffective Airway Clearance Goal: Patent airway Outcome: Progressing Problem: Fall Risk Goal: Fall risk and fall related injury risk are minimized (interventions related to the fall risk can be found in the flowsheet documentation) Outcome: Progressing Problem: Nutrient: Inadequate protein-energy intake Goal: Total intake will meet estimated nutrient needs Outcome: Progressing Problem: Oxygenation/Respiratory Function Goal: Patent airway Outcome: Progressing Goal: Respiratory rate/effort will be within specified limits Outcome: Progressing Problem: Care of Tracheostomy Goal: Tracheostomy tube and site will be maintained Outcome: Progressing Problem: Potential for Infection Goal: Insertion site without signs/symptoms of infection Outcome: Progressing Problem: Knowledge Deficit Goal: Patient/Significant other demonstrates understanding of Tracheostomy Outcome: Progressing Problem: Communication/Dysarthria Goal: STG - Patient will tolerate PMV trials Outcome: Progressing Problem: Pain/Discomfort Goal: Patient exhibits reduced pain/discomfort as evidenced by pain scores Outcome: Progressing Goal: Patient uses pharmacological and non-pharmacological pain management strategies. Outcome: Progressing Goal: Patient verbalizes acceptable level of pain relief and ability to engage in desired activity. Outcome: Progressing Problem: Skin Integrity Goal: Skin integrity is maintained or improved Outcome: Progressing * Cherelle Pantoja RN - 09/28/2022 1:00 PM CDT Pt awake and alert. Provided good hygein care, repositioned and provided trach care. Pt denies painand appears comfortable. Continue to monitor oxygen saturation, tube feeding and position change topromote skin integrity. Problem: Impaired Gas Exchange Goal: Resp rate/effort will be within specified limits Outcome: Progressing Problem: Ineffective Airway Clearance Goal: Patent airway Outcome: Progressing Problem: Fall Risk Goal: Fall risk and fall related injury risk are minimized (interventions related to the fall risk can be found in the flowsheet documentation) Outcome: Progressing Problem: Nutrient: Inadequate protein-energy intake Goal: Total intake will meet estimated nutrient needs Outcome: Progressing Problem: Oxygenation/Respiratory Function Goal: Patent airway Outcome: Progressing Goal: Respiratory rate/effort will be within specified limits Outcome: Progressing Problem: Care of Tracheostomy Goal: Tracheostomy tube and site will be maintained Outcome: Progressing Problem: Potential for Infection Goal: Insertion site without signs/symptoms of infection Outcome: Progressing Problem: Knowledge Deficit Goal: Patient/Significant other demonstrates understanding of Tracheostomy Outcome: Progressing Problem: Communication/Dysarthria Goal: STG - Patient will tolerate PMV trials Outcome: Progressing Problem: Pain/Discomfort Goal: Patient exhibits reduced pain/discomfort as evidenced by pain scores Outcome: Progressing Goal: Patient uses pharmacological and non-pharmacological pain management strategies. Outcome: Progressing Goal: Patient verbalizes acceptable level of pain relief and ability to engage in desired activity. Outcome: Progressing Problem: Skin Integrity Goal: Skin integrity is maintained or improved Outcome: Progressing * Petra Fuentes MD - 09/28/2022 7:10 AM CDT Hospitalist Progress Note Subjective: No acute events overnight. Patient is much alert and oriented then last week He denied any complaints Was able to have small conversation Objective: BP 142/71 Pulse 80 Temp 97.3 ??F (36.3 ??C) (Oral) Resp 18 Ht 1.829 m (6') Wt 61.5 kg (135 lb 9.6 oz) SpO2 100% Gen: NAD, mood appropriate HEENT: NCAT, EOMI, MMM, no JVD RESP: Clear to auscultation bilaterally CV: NI S1 and S2, No gallops, murmur GI: Soft and non tender, no rigidity and guarding, +BS, no HSM EXT: No edema. MAR reviewed today Relevant labs reviewed today. Creatinine Date Value Ref Range Status 09/26/2022 0.45 (L) 0.71 - 1.16 mg/dL Final Hemoglobin Date Value Ref Range Status 09/26/2022 12.2 12.0 - 17.6 g/dL Final Relevant imaging reviewed today Reviewed active orders today Assessment/Plan: History of CVA (cerebrovascular accident) (POA: Yes) Paroxysmal tachycardia, unspecified (CMS/HCC) (POA: Yes) Sepsis without acute organ dysfunction (CMS/HCC) (POA: Yes) Protein calorie malnutrition (CMS/HCC) (POA: Yes) Tachypnea (POA: Yes) Chronic respiratory failure with hypoxia (CMS/HCC) (POA: Yes) Chronic hypoxic respiratory failure s/p trach Seizure disorder, continue lacosamide, Keppra, Depakote and clobazam, seizure precaution 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, bedbound Hypertension Peripheral vascular disease S/p left AKA complicated by nonhealing stage II ulcer, present on admission, skin care precaution, wound care Normocytic anemia Recurrent aspiration pneumonia s/p peg tube, currently strict NPO Staph capitis bacteremia, completed antibiotic regimen UTI, completed antibiotic regimen Pseudomonal pneumonia, completed antibiotic regimen Zenker diverticulum s/p diverticulectomy Hyperlipidemia, continue Lipitor Pressure ulcer on right heel, present on admission Wound care Skin care precaution Diet - strict NPO, tube feeding DVT PPx: Lovenox Code Status: Full PT/OT consulted Fall & aspiration precautions Discussed with care coordination team I had a very detailed discussion over the phone with patient's 2 sisters. Answered their questions about oxygen requirement and wound care. Discussed patient at the multidisciplinary rounding Total time spent more than 50 minutes. Petra Fuentes MD, MRCP (), FACP, FRCP Typewriter Ribbon Winderlicensed massage therapist Department of Internal Medicine Feel free to text page me through [employer]. * Ramonita Oropeza RN - 09/28/2022 1:50 AM CDT Problem: Impaired Gas Exchange Goal: Resp rate/effort will be within specified limits Outcome: Progressing Problem: Ineffective Airway Clearance Goal: Patent airway Outcome: Progressing Problem: Fall Risk Goal: Fall risk and fall related injury risk are minimized (interventions related to the fall risk can be found in the flowsheet documentation) Outcome: Progressing Problem: Nutrient: Inadequate protein-energy intake Goal: Total intake will meet estimated nutrient needs Outcome: Progressing Problem: Oxygenation/Respiratory Function Goal: Patent airway Outcome: Progressing Goal: Respiratory rate/effort will be within specified limits Outcome: Progressing Problem: Care of Tracheostomy Goal: Tracheostomy tube and site will be maintained Outcome: Progressing Problem: Potential for Infection Goal: Insertion site without signs/symptoms of infection Outcome: Progressing Problem: Knowledge Deficit Goal: Patient/Significant other demonstrates understanding of Tracheostomy Outcome: Progressing Problem: Communication/Dysarthria Goal: STG - Patient will tolerate PMV trials Outcome: Progressing Problem: Pain/Discomfort Goal: Patient exhibits reduced pain/discomfort as evidenced by pain scores Outcome: Progressing Goal: Patient uses pharmacological and non-pharmacological pain management strategies. Outcome: Progressing Goal: Patient verbalizes acceptable level of pain relief and ability to engage in desired activity. Outcome: Progressing Problem: Skin Integrity Goal: Skin integrity is maintained or improved Outcome: Progressing * John Aguero RN - 09/27/2022 7:09 PM CDT Care Coordination Progress Note Anticipated level of care at discharge: Custodial - Medicaid Discharge Plan: Patient is new to my case load. Patient was denied by [facility], pending SNF referrals. SW following. READMISSION RISK SCORE is 28 at 7:10 PM 09/27/2022. Anticipated Discharge Date: 09/29/22 Patient/Family provided with list of resources? Yes Preferred Provider / High Quality Network List given?: Yes Reason for provider choice: Pt. choice - previous provider Family Support (Name and Phone): Extended Emergency Contact Information Primary Emergency Contact: Adriane Pearson Mobile Relation: Sister Shop Mechanic needed? No Secondary Emergency Contact: Amarjit Tabor [facility] Relation: Brother Transportation at Discharge: Ambulance Equipment at Home: Equipment at Home: Facility Equipment List DME patient requires but does not have: DME Provider: Medication affordability concerns: No Follow Up Appointment: Transportation to MD: John Aguero RN BSN solar manager [phone] * Carole Shea RN - 09/27/2022 6:37 PM CDT Patient has been reduced to 2L O2. Patient is saturating at 100%. Patient also had me removed his oxygen completely because it was bothering him. Patient is still at 100% with the oxygen off * Carole Shea RN - 09/27/2022 6:29 PM CDT Patient stated he did not want his oxygen on. Took off oxygen for patient. His 02 is at 100% with it off. * Izzy Harris PharmD - 09/27/2022 9:23 AM CDT [facility] Pharmacy Medication History Note The current prior to admission ([employer]) medication list has been reviewed by a pharmacist. Outpatient medications were clarified with [facility] records. Please note all medications may NOT have been clarified pending available information at the time. Current Updated Home Medications: Medications Prior to Admission Medication Sig Action Taken acetaminophen (Tylenol) 500 MG tablet 1 (one) tablet by Enteral Tube route every 6 hours as needed Maximum allowable Acetaminophen amount = 4 Grams (4000 mg) / 24 hours. artificial tears ophthalmic solution Instill 1 (one) drop into both eyes 3 times daily as needed aspirin (Aspirin) 81 MG chew tablet 1 (one) tablet by Enteral Tube route once daily Added atorvastatin (Lipitor) 40 MG tablet 1 (one) tablet by Enteral Tube route once daily cetirizine (ZyrTEC) 10 MG tablet 1 (one) tablet by Enteral Tube route once daily Added cloBAZam (Onfi) 20 MG tablet 1 (one) tablet by Enteral Tube route 2 times daily docusate sodium (Colace) 150 MG/15ML solution Take 15 mL by mouth once daily as needed for Constipation Updated frequency enoxaparin (Lovenox) 40 MG/0.4ML injection Inject 40 (forty) mg subcutaneously once daily Added fluticasone propionate (Flonase) 50 MCG/ACT nasal spray [place] 1 (one) spray into each nostril once daily Adjusted frequency from PRN folic acid (Folvite) 1 MG tablet 1 (one) tablet by Enteral Tube route once daily lacosamide (Vimpat) 200 MG tablet 1 (one) tablet by Enteral Tube route 2 times daily levETIRAcetam (Keppra) 1000 MG tablet 2 (two) tablets by Enteral Tube route 2 times daily metoprolol tartrate IR (Lopressor) 25 MG tablet 1 (one) tablet by Enteral Tube route every 8 hours Hold for BP < 110 or HR < 60 Added midazolam (Nayzilam) 5 MG/0.1ML nasal spray [place] 0.1 mL into the nose as needed for Seizures Not on facility's med list, but was filled May 2022 so kept on polyethylene glycol 3350 (Miralax) 17 g packet Take 17 (seventeen) g by mouth once daily Added solifenacin (Vesicare) 5 MG tablet Take 1 (one) tablet by mouth once daily Added tamsulosin (Flomax) 0.4 MG capsule Take 1 (one) capsule by mouth once daily At the same time every day after a meal. Please make sure it is via enteral tube. thiamine (Vitamin B-1) 100 MG tablet 1 (one) tablet by Enteral Tube route once daily Valproate Sodium (Valproic Acid) 250 MG/5ML 10 mL by Enteral Tube route every 6 hours Added Medications removed: Carboxymethylcellulose ophthalmic Loratadine Oxybutynin Please note that this only serves as an updated medication list and all medical teams should continue to manage the patient as deemed most appropriate. If any questions about the home medication listarise please do not hesitate to contact the [facility] pharmacy dept ([id number]). Thank you. Assessment Completed by: Izzy Harris, PharmD 09/27/2022 9:17 AM * Yasmani Vigil MD - 09/27/2022 8:03 AM CDT Medicine Inpatient Progress Note 09/27/22 8:03 AM Subjective: No acute events overnight. No new complaints this morning. Baseline is 2L O2. Spoke to sisters in depth. Remain full code. Objective: Temp: [98.1 ??F (36.7 ??C)-98.2 ??F (36.8 ??C)] 98.2 ??F (36.8 ??C) Pulse: [74-105] 87 Resp: [15-18] 15 BP: (131-143)/(75-87) 131/80 O2 %: [28 %] 28 % Intake/Output Summary (Last 24 hours) at 09/27/2022 0803 Last data filed at 09/27/2022 0651 Gross per 24 hour Intake 2566 ml Output 1300 ml Net 1266 ml General: Awake, cooperative, in no distress. HEENT: Tracheostomy collar Lungs: Clear to auscultation bilaterally, no crackles, no wheezes. Heart: RRR, S1 / S2 normal, no murmurs. No JVD. Abdomen: Bowel sounds normal, soft, non-tender, non-distended, no masses. Extremities: Left AKA, able to give thumbs up and thumbs down with right hand Skin: No rashes or lesions. Neurologic: Left arm ewakness Data Review: Labs and imaging reviewed. ASSESSMENT & PLAN: Per with modifications Chronic hypoxic respiratory failure Seizure disorder Status post trach Urinary tract infection, resolved Pseudomonal pneumonia, resolved Staph capitis bacteremia, resolved Recurrent aspiration status post PEG Zenker diverticulum status post diverticulectomy History CVA complicated by left-sided weakness Hypertension Peripheral vascular disease Status post left AKA complicated by nonhealing stage II ulcer Normocytic anemia Patient is status post treatment for Staph, MRSA, pseudomonal infection. Continue trach care. -patient baseline prior to admission was 2LO2 on trach. Wean to 2L. Continue lacosamide 200 mg b.i.d., Keppra 2 g b.i.d., clobazam 20 b.i.d., Depakote 500 Continue atorvastatin Bowel regimen Wound care per wound care nurse Serial CBCs and BMP - Nutrition: TF Jevity 1.5 65ml/h + 200 FWF q3h Prophylaxis - lovenox Code Status - Full Code Disposition - returning to: Medicine Yasmani Vigil MD 09/27/22 8:03 AM * Wood Charles RN - 09/26/2022 11:12 PM CDT Problem: Impaired Gas Exchange Goal: Resp rate/effort will be within specified limits Outcome: Progressing Problem: Ineffective Airway Clearance Goal: Patent airway Outcome: Progressing Problem: Fall Risk Goal: Fall risk and fall related injury risk are minimized (interventions related to the fall risk can be found in the flowsheet documentation) Outcome: Progressing Problem: Nutrient: Inadequate protein-energy intake Goal: Total intake will meet estimated nutrient needs Outcome: Progressing Problem: Oxygenation/Respiratory Function Goal: Patent [...] is maintained or improved Outcome: Progressing * Cherelle Pantoja RN - 09/26/2022 3:23 PM CDT Pt alert, awake and tracks movement. Pt appears comfortable. Noted pt coughed up thick white frothysputum on his gown. Provided good sterile suction as well as good oral care. Pt tolerated well. Continous pulse oximetry in place and pt sating up in 96 to 100 % on current trach setting at 28% FIO2 on 8 liters. PEG tube infusing Jevity 1.5 at 65 ml/hr with water flush 200 ml every 3 hours. Assessed the PEG residual and out 5 ml, re-instilled the residual output. Pt requires every 2 hours position change with 2 staff assist. Assisted with reposition to left side. Pt tolerated the activities well. External condom cath draining adequate urine, slightly zenon/yellow, clear. Right foot elevated on a pillow and assessed the skin. Pt denies pain. Pt tried to communicate but this inspector automatic typewriter unable to understand therefore asked the pt to shake his head side to side for dislikes and up and down for likes. Pt demonstrated understanding when he shook his head side to side when asked about the pain. Enc. Deep breath and cough, which pt demonstrated understanding when he coughed. Continue to monitor airway, oxygen saturation and trach care. Problem: Impaired Gas Exchange Goal: Resp rate/effort will be within specified limits Outcome: Progressing Problem: Ineffective Airway Clearance Goal: Patent airway Outcome: Progressing Problem: Fall Risk Goal: Fall risk and fall related injury risk are minimized (interventions related to the fall risk can be found in the flowsheet documentation) Outcome: Progressing Problem: Nutrient: Inadequate protein-energy intake Goal: Total intake will meet estimated nutrient needs Outcome: Progressing Problem: Oxygenation/Respiratory Function Goal: Patent airway Outcome: Progressing Goal: Respiratory rate/effort will be within specified limits Outcome: Progressing Problem: Care of Tracheostomy Goal: Tracheostomy tube and site will be maintained Outcome: Progressing Problem: Potential for Infection Goal: Insertion site without signs/symptoms of infection Outcome: Progressing Problem: Knowledge Deficit Goal: Patient/Significant other demonstrates understanding of Tracheostomy Outcome: Progressing Problem: Communication/Dysarthria Goal: STG - Patient will tolerate PMV trials Outcome: Progressing Problem: Pain/Discomfort Goal: Patient exhibits reduced pain/discomfort as evidenced by pain scores Outcome: Progressing Goal: Patient uses pharmacological and non-pharmacological pain management strategies. Outcome: Progressing Goal: Patient verbalizes acceptable level of pain relief and ability to engage in desired activity. Outcome: Progressing Problem: Skin Integrity Goal: Skin integrity is maintained or improved Outcome: Progressing * Westley Corley MD - 09/26/2022 7:16 AM CDT INTERNAL MEDICINE PROGRESS NOTE Patient: Bi Tabor (:1960) Admit Date: 08/28/2022. Interval Updates No acute events overnight. Hospital Course Bi Tabor is a 62 year old male admitted on 08/28/2022 for increased work of breathing. 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 He has been atnursing home for 1 day since being discharged from the [place]. He required ICU for mechanical ventilation. Status post treatment for Staph capitis bacteremia, MRSA and Pseudomonas pneumonia and Pseudomonas UTI TTE negative for any vegetations. His hospital course was also complicated by mucus plugging requiring bronchoscopy on 08 September and recurrent Pseudomonas pneumonia. He also had intermittent tachycardia which was thought to be due to pain. He was transferred to [facility] awaiting placement. Physical Exam BP 124/68 Pulse 97 Temp 98.6 ??F (37 ??C) (Oral) Resp 20 Ht 1.829 m (6') Wt 61.5 kg (135 lb 8 oz) SpO2 100% Intake/Output Summary (Last 24 hours) at 09/26/2022 0718 Last data filed at 09/26/2022 0537 Gross per 24 hour Intake 1951 ml Output -- Net 1951 ml GEN Awake, cooperative HEET Normocephalic, without obvious abnormality, atraumatic. EOMs intact. NECK Tracheostomy collar CHEST No tenderness or deformity RES CTAB CVS RRR, S1, S2 normal, no murmur GI Soft, NT, ND, +BS EXT Left AKA BISMARK Left arm weakness SKIN Skin color, texture normal. No rashes or lesions. Data Review Labs CBC Recent Labs Component Name 09/24/22 0759 09/21/22 0640 09/20/22 0648 WBC 7.6 10.4 9.5 HGB 10.7* 10.1* 10.0* HCT 34.4* 31.7* 31.6* MCV 100.0* 96.6 98.8* CMP Recent Labs Component Name 09/24/22 0759 09/21/22 0640 09/20/22 0648 08/30/22 0039 08/28/22 2224 08/28/22 1251 07/01/22 1634 06/30/22 1039 NA 142 138 139 - 142 139 - 140 CL 105 104 106 - 111* 103 - 107 CO2 24 24 - 24 - 24 CREATININE 0.42* 0.39* 0.40* - 0.50* 0.51* - 0.58* BUN 14 13 16 - 11 12 - 7 ALKPHOS - - - - 67 88 - 65 ALT - - - - 5 6 - 5 AST - - - - 13 14 - 13 - = values in this interval not displayed. ABG No results for input(s): PHART, PO2ART, VDE3NOX, ODN3PXR in the last 98417 hours. Invalid input(s): Q1HFVYA LFTs Recent Labs Component Name 08/28/224 ALT 5 AST 13 ALKPHOS 67 TBILI 0.6 COAGs Recent Labs Component Name 08/28/22 2224 06/27/22 2215 05/11/22 1309 PT 15.2* 12.8 13.5 INR 1.2 1.0 1.0 LIPIDs Recent Labs Component Name 07/07/22 0345 04/11/15 0622 CHOL - 196 HDL - 81 LDLCALC - 102* TRIG 102 63 CARDIAC Recent Labs Component Name 07/11/22 0040 07/01/22 1634 06/28/22 0141 CKTOTAL 49 - - TROPONINI - - <0.010 - = values in this interval not displayed. DIABETES Recent Labs Component Name 09/24/22 0759 CREATININE 0.42* Microbiology Reviewed in chart Radiology Reviewed in chart Assessment & Plan Chronic hypoxic respiratory failure Seizure disorder Status post trach Urinary tract infection, resolved Pseudomonal pneumonia, resolved Staph capitis bacteremia, resolved Recurrent aspiration status post PEG Zenker diverticulum status post diverticulectomy History CVA complicated by left-sided weakness Hypertension Peripheral vascular disease Status post left AKA complicated by nonhealing stage II ulcer Normocytic anemia Patient is status post treatment for Staph, MRSA, pseudomonal infection. Continue trach care. Continue lacosamide 200 mg b.i.d., Keppra 2 g b.i.d., clobazam 20 b.i.d., Depakote 500 Continue atorvastatin Bowel regimen Wound care per wound care nurse Serial CBCs and BMP Westley Corley M.D. General Internal Medicine 09/26/2022 7:18 AM * Wood Charles RN - 09/25/2022 11:03 PM CDT Problem: Impaired Gas Exchange Goal: Resp rate/effort will be within specified limits Outcome: Progressing Problem: Ineffective Airway Clearance Goal: Patent airway Outcome: Progressing Problem: Fall Risk Goal: Fall risk and fall related injury risk are minimized (interventions related to the fall risk can be found in the flowsheet documentation) Outcome: Progressing Problem: Oxygenation/Respiratory Function Goal: Patent airway Outcome: Progressing Goal: Respiratory rate/effort will be within specified limits Outcome: Progressing Problem: Care of Tracheostomy Goal: Tracheostomy tube and site will be maintained Outcome: Progressing Problem: Pain/Discomfort Goal: Patient exhibits reduced pain/discomfort as evidenced by pain scores Outcome: Progressing Goal: Patient uses pharmacological and non-pharmacological pain management strategies. Outcome: Progressing Goal: Patient verbalizes acceptable level of pain relief and ability to engage in desired activity. Outcome: Progressing * Yasmani Vigil MD - 09/25/2022 7:20 PM CDT Plan Of Care Subj: Transferred to [facility] General: Awake, cooperative, in no distress. Lungs: Non distressed breathing. Trach collar in place Heart: Regular. No JVD. Abdomen: Bowel sounds normal, soft, non-tender, non-distended, no masses. PEG tube in place Extremities: No edema. Right AKA Neurologic: Alert and oriented. Left hand and arm weakness Plan: 62 M w/ Hx??stroke??w/??left??sided residual deficits, seizure disorder, dementia, dysphagia w/ recurrent aspiration s/p PEG, zenker divertiuculum s/p diverticulectomy 2022, chronic hypoxic respiratory faiure s/p trach 06/2022, PVD s/p L AKA c/b nonhealing foot wound, HTN who presented to [facility] 08/28 with shortness of breath, tachypnea, and increased WOB #chronic hypoxia #recurrent aspiration PEG tube dependent #protein calorie malnutrition #dementia #PD s/p L INGE #Hx CVA #seizure disorder Yasmani Vigil MD * Maryan Hughes RN - 09/25/2022 5:53 PM CDT 1744 Report called to Amilcar SIMON. All questions answered. * Bakari Zacarias - 09/25/2022 11:52 AM CDT [facility] INTERNAL MEDICINE PROGRESS NOTE Patient: Bi Tabor Sex: male Age: [age] year old Date of : 1960 Date of Admission: 08/28/2022 Date: 09/25/2022 LOS: 28 SUBJECTIVE Interval History: No acute events overnight. Patient appeared comfortable and able to nod to answer yes/no questions,occasionally spoke to say yes/no. Hospital Course: Per Dr. Cortes: 62 M w/ Hx stroke w/??left??sided residual deficits, seizure disorder, dementia, dysphagia w/ recurrent aspiration s/p PEG, zenker divertiuculum s/p diverticulectomy 2022, chronic hypoxic respiratory faiure s/p trach 06/2022, PVD s/p L AKA c/b nonhealing foot wound, HTN who presented to [facility] 08/28 with shortness of breath, tachypnea, and increased WOB d/t lack of suction instruments atSNF. ?? On admission, no elevated WBC, afebrile but??CXR w/ large R pleural effusion, R lung atelectasis, RUL GGO. Patient was started on broad spectrum abx (vanc, cefe). BCX + staph capitis, SpCx + MRSA andpseudomonas. UCx + pseudomonas. TTE negative for vegetations. Hospital course c/b mucus plugging requiring bronch 09/08, recurrent pseudomonas PNA (repeat SpCx 09/09 + pseudomonas resistant to cefepime).??Antibiotics switched to??meropenem??(09/10-09/17).??Weaned off ventilation in ICU. Tolerated trachcollar and transferred to the floor. ?? On interview, patient is able to nod yes/no questions, is not able to speak most of the time. Repeat CXR unchanged. 09/18/22 pt became tachycardic into 130s, sinus and required increase in O2, but hassince resolved without further episodes. 09/22/22 patient required suctioning for a mucous plug. Scopolamine patch was placed which significantly improved secretions. Breathing well on 6L O2. OBJECTIVE Vital Signs: Vitals: 09/24/22 2233 09/24/22 2336 09/25/22 0343 09/25/22 0926 BP: 142/79 146/90 122/81 Pulse: 93 95 94 92 Resp: 18 18 18 17 Temp: 98.2 ??F (36.8 ??C) 98.4 ??F (36.9 ??C) 98.2 ??F (36.8 ??C) SpO2: 100% 100% 99% 100% Weight: Height: Temp Min: 96.6 ??F (35.9 ??C) Max: 100.9 ??F (38.3 ??C), Pulse Min: 65 Max: 138, Resp Min: 8 Max: 100, BP Min: 85/63 Max: 175/91 Intake & Output: In: 4611 Out: 3600 [Urine:3600] Physical Exam: General: Alert, no acute distress Neck: No JVD or cartoid bruit. Trachea midline. Heart: RRR, Normal S1 and S2. No murmurs appreciated. Chest: Trach collar. Bilateral wheezes, mildly diminished breath sounds on right side. Abdomen: PEG tube placed. Soft, non-tender, non-distended, bowel sounds present Extremities: No lower extremity edema, left AKA, right foot ulcer. Neuro: No focal deficits noted Intake/Output Summary (Last 24 hours) at 09/25/2022 1157 Last data filed at 09/25/2022 0936 Gross per 24 hour Intake 2377 ml Output 1000 ml Net 1377 ml Current Medications: Scheduled: ??? 0.9% NaCl 3 mL Intracatheter q8h ??? artificial tears Each Eye q8h ??? atorvastatin 40 mg Enteral Tube QDAY ??? chlorhexidine 15 mL Mouth/Throat BID ??? cloBAZam 20 mg Enteral Tube BID ??? divalproex sprinkle 500 mg Enteral Tube q6h ??? enoxaparin 40 mg Subcutaneous QDAY ??? guaiFENesin 10 mL Enteral Tube q6h ??? lacosamide 200 mg Enteral Tube BID ??? levalbuterol 1.25 mg Inhalation q12h ??? levETIRAcetam 2,000 mg Enteral Tube BID ??? polyethylene glycol 3350 17 g Enteral Tube BID ??? scopolamine 1 patch Transdermal q72h And ??? scopolamine patch placement confirmation Transdermal BID ??? senna-docusate 1 tablet Enteral Tube BID ??? sodium chloride (Inhalant) 4 mL Inhalation BID Continuous: PRN: ??? SALINE LOCK, INSERT AND MAINTAIN AND 0.9% NaCl AND 0.9% NaCl ??? acetaminophen ??? dextrose IV for hypoglycemia OR dextrose IV for hypoglycemia ??? glucagon ??? glucose (Diabetic Use) ??? glucose (Diabetic Use) gel ??? glucose chew tab Significant Lab Results: CBC: Recent Labs Component Name 09/24/22 0759 09/21/22 0640 09/20/22 0648 WBC 7.6 10.4 9.5 HGB 10.7* 10.1* 10.0* HCT 34.4* 31.7* 31.6* MCV 100.0* 96.6 98.8* Coagulation Panel: Recent Labs Component Name 08/28/22 2224 06/27/22 2215 05/11/22 1309 PT 15.2* 12.8 13.5 INR 1.2 1.0 1.0 BMP: Recent Labs Component Name 09/24/22 0759 09/21/22 0640 09/20/22 0648 NA 142 138 139 POTASSIUM 4.8* 4.4 4.6* CL 105 104 106 CO2 BUN 14 13 16 CREATININE 0.42* 0.39* 0.40* CALCIUM 10.2 10.0 9.7 Recent Labs Component Name 09/24/22 0759 09/21/22 0640 09/20/22 0648 MAGNESIUM 1.7 1.7 1.7 Recent Labs Component Name 09/24/22 0759 09/21/22 0640 09/20/22 0648 PHOS 3.1 3.2 3.5 Hepatic Panel: Recent Labs Component Name 08/28/22 2224 08/28/22 1251 06/30/22 1039 03/03/18 1745 01/30/18 1255 11/28/17 0455 10/14/17 1349 AST 13 14 13 - 14 - 18 ALT 5 6 5 - 10 - 9 ALKPHOS 67 88 65 - 75 - 86 TBILI 0.6 0.5 0.3 - 0.4 - 0.6 DBILI - - 0.2 - 0.2 - 0.2 IBILI - - 0.1 - 0.2 - 0.4 ALB 2.0* 2.5* 2.2* - 3.7 - 3.9 - = values in this interval not displayed. ABG: Recent Labs Component Name 09/14/22 1208 09/07/22 0941 08/28/22 1849 PH 7.43 7.44 7.41 PCO2 45 46* 41 PO2 79* 100 79* Amylase/Lipase: Invalid input(s): AMYL, LIPA Thyroid Studies: Recent Labs Component Name 07/04/22 0145 TSH 1.955 Cardiac Enzymes: Recent Labs Component Name 07/11/22 0040 07/01/22 1634 06/28/22 0141 06/27/22 2215 05/30/22 1750 CKTOTAL 49 - - - - TROPONINI - - <0.010 <0.010 <0.010 - = values in this interval not displayed. Lipid Panel: Recent Labs Component Name 04/11/15 0622 LDLCALC 102* HDL 81 Microbiology: Reviewed Imaging & Studies: Reviewed ASSESSMENT & PLAN #Acute on Chronic Hypoxic Respiratory Failure #MDR Pneumonia - Tracheostomy placed on 06/2022. Patient is able to tolerate 6L oxygen well. MRSA and Pseudomonas resolved following completion of meropenem course (finished on 09/17) - Continue levalbuterol, guafenesin, HTS - RT following - Repeat CXR showed no worsening of pleural effusion/consolidation - Pending SNF bed for discharge #Bacteremia #UTI - Infections have resolved with negative blood and urine cultures following completion of Abx course #History of Seizures - Continue home Keppra BID, Clobazam BID, Depakote, Lacosamide #History of CVA - Continue home Atorva - Speech therapy for evaluation of PMV upon switching to trach w/out cuff #Dysphagia #Zenker Diverticulum #Recurring Aspiration - Aspiration precautions - Miralax and Senna BID #Nonhealing Foot Ulcer - Wound care following - Per 09/14 note: - Apply a Mepilex AG foam, secure with Kerlix, change q3 days and prn off load right heel at all times with heel boot - Routine turning and pressure ulcer prevention measures- apply a Mepilex AG foam, secure with Kerlix, change q3 days and prn - Off load right heel at all times with heel boot - Routine turning and pressure ulcer prevention measures Code: Full Diet: TF via PEG, strict NPO Electrolytes: Replete PRN PPx: Lovenox Access: PIV, PEG Dispo: Pending SNF The above assessment and plan will be discussed with the attending. This note is not final until attested by attending physician. Bakari Zacarias MS4 [facility] 09/25/2022 11:57 AM * Syed Stout MD - 09/25/2022 6:45 AM CDT [facility] INTERNAL MEDICINE PROGRESS NOTE Patient: Bi Tabor Sex: male Age: [age] year old Date of : 1960 Date of Admission: 08/28/2022 Date: 09/25/2022 LOS: 28 ASSESSMENT & PLAN In summary, 2 M w/ Hx stroke w/??left??sided residual deficits, seizure disorder, dementia, dysphagia w/ recurrent aspiration s/p PEG, zenker divertiuculum s/p diverticulectomy 2022, chronic hypoxic respiratory faiure s/p trach 06/2022, PVD s/p L AKA c/b nonhealing foot wound, HTN who presented to [facility] 08/28 with shortness of breath, tachypnea, and increased WOB Problem List History of CVA (cerebrovascular accident) (POA: Yes) Paroxysmal tachycardia, unspecified (CMS/HCC) (POA: Yes) Sepsis without acute organ dysfunction (CMS/HCC) (POA: Yes) Protein calorie malnutrition (CMS/HCC) (POA: Yes) Tachypnea (POA: Yes) Chronic respiratory failure with hypoxia (CMS/HCC) (POA: Yes) Chronic respiratory failure (CRF) with hypoxia Etiology of CRF accounted for by recurrent pneumonias and mucous plugging s/p tracheostomy 06/2022 MRSA and pseudomonas??(Spx CX 09/09 +MRSA, +Pseudo; 09/11: +Pseudo, resistant to cefepime). Completed??meropenem for 7 day course (09/10-?09/17) Plan: Telemetry monitoring and continuous pulse oximetry. Supplemental O2 via nasal cannula or trach collar to maintain SpO2 >= 92%. - Continue levalbuterol??nebs, HTS, guafenesin, NaCl neb - Trach collar, RT following - Frequent suctioning, bronchial hygiene, trach care - Procal level negative??09/17 - Wean Oxygen to baseline of 6 L if able to tolerate - Scopolamine patch Goals of care with POA Urinary tract infection BCx 08/28/22: +Staph capitis. BCX 08/30 negative. UA Cx 08/29/22: Pseudomonas aeruginosa Completed??7 day treatment??for UTI and bacteremia w/ negative cultures now Plan: Meropenum EOT 09/17 Seizure disorder : Continue home??meds:??Lacosamide 200 BID, keppra 2 g BID, clobazam 20 BID, depakote 500 ?? Hx CVA c/b L sided deficits: Continue home??atorva 40mg daily ?? Hypertension Plan: Serial monitoring of blood pressure. Withhold anti-HTN medications in setting of normal blood pressure. 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 PVD?? s/p L AKA c/b nonhealing foot wound Stage 2 - Wound care following: - apply a Mepilex AG foam, secure with Kerlix, change q3 days and prn - off load right heel at all times with heel boot - routine turning and pressure ulcer prevention measures- apply a Mepilex AG foam, secure with Kerlix, change q3 days and prn - off load right heel at all times with heel boot - routine turning and pressure ulcer prevention measures as detailed in 09/14 note ?? Normocytic??Anemia Thrombocytopenia??- resolved - Likely JOSE G and AoCD - Trend CBC -??Transfuse for Hb < 7, plt < 10 [facility] Transfer Checklist: Reasons for Transfer to [facility] patient waiting for placement Brief Hospital Course 62 M w/ Hx stroke w/??left??sided residual deficits, seizure disorder, dementia, dysphagia w/ recurrent aspiration s/p PEG, zenker divertiuculum s/p diverticulectomy 2022, chronic hypoxic respiratoryfaiure s/p trach 06/2022, PVD s/p L AKA c/b nonhealing foot wound, HTN who presented to [facility]28 withshortness of breath, tachypnea, and increased WOB d/t lack of suction instruments at [facility]. Hospital course c/b mucus plugging requiring bronch 09/08, recurrent pseudomonas PNA (repeat SpCx 09/09 + pseudomonas resistant to cefepime).??Antibiotics switched to??meropenem??(09/10-09/17).??Weaned off ventilation in ICU. Tolerated trach collar and transferred to the floor. Pertinent PMH: Hx stroke w/??left??sided residual deficits, seizure disorder, dementia, dysphagia w/ recurrent aspiration s/p PEG, zenker divertiuculum s/p diverticulectomy 2022, chronic hypoxic respiratory faiure s/p trach 06/2022, PVD s/p L AKA c/b nonhealing foot wound, HTN ABx Indications/End Date: n.a Consult Teams Past and Present: IP CONSULT TO NUTRITIONAL SERV IP CONSULT TO RESPIRATORY IP CONSULT TO NUTRITIONAL SERV IP CONSULT TO INFECTIOUS DISEASES IP CONSULT TO TRACK SERVICE PERSON IP CONSULT TO SKIN CARE NURSE Pending Workup: n.a Things to Watch: Goals of care with POA Disposition Place and Date: SNF tbd To Address Prior to DC: Goals of care SUBJECTIVE Interval History: No acute events overnight. Patient nods head yes or no to questions at times. Son at bedside this morning. On going goals of care conversation. Pending SNF. Hospital Course: 62 M w/ Hx stroke w/??left??sided residual deficits, seizure disorder, dementia, dysphagia w/ recurrent aspiration s/p PEG, zenker divertiuculum s/p diverticulectomy 2022, chronic hypoxic respiratoryfaiure s/p trach 06/2022, PVD s/p L AKA c/b nonhealing foot wound, HTN who presented to [facility] 08/[facility] withshortness of breath, tachypnea, and increased WOB d/t lack of suction instruments at SNF. ?? On admission, no elevated WBC, afebrile but??CXR w/ large R pleural effusion, R lung atelectasis, RUL GGO. Patient was started on broad spectrum abx (vanc, cefe). BCX + staph capitis, SpCx + MRSA andpseudomonas. UCx + pseudomonas. TTE negative for vegetations. ?? Hospital course c/b mucus plugging requiring bronch 09/08, recurrent pseudomonas PNA (repeat SpCx 09/09 + pseudomonas resistant to cefepime).??Antibiotics switched to??meropenem??(09/10-09/17).??Weaned off ventilation in ICU. Tolerated trach collar and transferred to the floor. ?? On interview, patient is able to nod yes/no questions, is not able to speak. Repeat CXR unchanged. 09/18/22 pt became tachycardic into 130s, sinus and required increase in O2. 09/22/22 patient requiredsuctioning for a mucous plug. Scopolamine patch was placed which significantly improved secretions.Breathing well on 6L O2.?? OBJECTIVE Vital Signs: Vitals: 09/24/22202809/24/22 2233 09/24/22 2336 09/25/22 0343 BP: 131/79 142/79 146/90 Pulse: 98 93 95 94 Resp: 18 18 18 18 Temp: 98.1 ??F (36.7 ??C) 98.2 ??F (36.8 ??C) 98.4 ??F (36.9 ??C) SpO2: 100% 100% 99% Weight: Height: Temp Min: 96.6 ??F (35.9 ??C) Max: 100.9 ??F (38.3 ??C), Pulse Min: 65 Max: 138, Resp Min: 8 Max: 100, BP Min: 85/63 Max: 175/91 Physical Exam: General: Alert and oriented to person,??no acute distress Neck: No JVD or cartoid bruit. Trachea midline. Heart: RRR, Normal S1 and S2. No murmurs appreciated. Chest: Normal breath sounds, wheezes bilaterally??R>L, strong cough present, secretions requiring suction, trach collar Abdomen: Soft, non-tender, non-distended, bowel sounds present, PEG tube without surrounding erythema Extremities: ??L AKA, No lower extremity edema, 2+ distal peripheral pulses, Small stage 2 ulcer onheel, rewrapped wound. L arm weakness, movement of left arm 3/5 but 0/5 hand Neuro: No focal deficits noted Current Medications: Scheduled: ??? 0.9% NaCl 3 mL Intracatheter q8h ??? artificial tears Each Eye q8h ??? atorvastatin 40 mg Enteral Tube QDAY ??? chlorhexidine 15 mL Mouth/Throat BID ??? cloBAZam 20 mg Enteral Tube BID ??? divalproex sprinkle 500 mg Enteral Tube q6h ??? enoxaparin 40 mg Subcutaneous QDAY ??? guaiFENesin 10 mL Enteral Tube q6h ??? lacosamide 200 mg Enteral Tube BID ??? levalbuterol 1.25 mg Inhalation q12h ??? levETIRAcetam 2,000 mg Enteral Tube BID ??? polyethylene glycol 3350 17 g Enteral Tube BID ??? scopolamine 1 patch Transdermal q72h And ??? scopolamine patch placement confirmation Transdermal BID ??? senna-docusate 1 tablet Enteral Tube BID ??? sodium chloride (Inhalant) 4 mL Inhalation BID Continuous: PRN: ??? SALINE LOCK, INSERT AND MAINTAIN AND 0.9% NaCl AND 0.9% NaCl ??? acetaminophen ??? dextrose IV for hypoglycemia OR dextrose IV for hypoglycemia ??? glucagon ??? glucose (Diabetic Use) ??? glucose (Diabetic Use) gel ??? glucose chew tab Significant Lab Results: [facility] Microbiology: [facility] Imaging & Studies: Reviewed [facility] Code: Full Code Diet: DIET NPO Except: NO EXCEPTIONS DIET TUBE FEEDING CONTINUOUS Electrolytes: Replete PRN to K ~4, Mg ~2 and Phos ~3 PPx: Lovenox Access: PIV Dispo: Inpatient medicine Consults: IP CONSULT TO NUTRITIONAL SERV IP CONSULT TO RESPIRATORY IP CONSULT TO NUTRITIONAL SERV IP CONSULT TO INFECTIOUS DISEASES IP CONSULT TO TRACK SERVICE PERSON IP CONSULT TO SKIN CARE NURSE The above assessment and plan will be discussed with the attending. This note is not final until attested by attending physician. Syed Stout MD Internal Medicine Resident [facility] 09/25/2022 6:45 AM Associated attestation - Amanda Rojo MD - 09/25/2022 4:58 PM CDT Attending Physician Attestation I have seen and examined the patient with the resident and I agree with the findings and plan of care as documented by Dr. Stout. In addition: 62 yo M PMH dysphagia c/b zenker diverticulum (s/p PEG 02/2022), chronic hypoxic respiratory failure (d/t mucous plugging and failed extubation s/p trach 06/2021 w/ baseline O2 2L via trach collar), [facility]AKA (02/2022 for L foot gangrene), dementia, refractory epilepsy who p/w increased WOB, tachypnea from [facility] on 08/28 (had been at [facility] 1 day since being discharged from [place]). Required ICU for mechanical ventilation. S/p tx for staph capitis bacteremia (negative echo), MRSA and pseudomonas PNA, and pseudomonas UTI. Course c/b mucous plugging requiring bronch 09/08 and recurrent pseudomonas PNA. Transferred to floor 09/15. Had intermittent tachycardia, now resolved. Transfer to [facility] while awaiting SNF placement. Discussed care with patient's sister and POA (Adriane Pearson [phone]) and updated on transfer to [facility]. She reports patient is to be full code, poor understanding of patient's prognosis given his decompensation since trach and multiple prolonged admissions. #tachycardia - resolved, may be 2/2 pain #chronic hypoxic resp failure, PEG dependent: continue weaning O2 to 2L or RA via trach collar if possible, cont TF's #dementia: patient able to only mouth words, was noted on prior admissions prior to trach placement, follows commands and moves extremities #dispo: pending acceptance to SNF (prior SNF no longer able to accept due to concerns for patients frequent suctioning needs) History of CVA (cerebrovascular accident) (POA: Yes) Paroxysmal tachycardia, unspecified (CMS/HCC) (POA: Yes) Sepsis without acute organ dysfunction (CMS/HCC) (POA: Yes) Protein calorie malnutrition (CMS/HCC) (POA: Yes) Tachypnea (POA: Yes) Chronic respiratory failure with hypoxia (CMS/HCC) (POA: Yes) Date of Service: 09/25/2022 Amanda Rojo MD Internal Medicine * Willow Varghese RN - 09/25/2022 2:07 AM CDT Problem: Impaired Gas Exchange Goal: Resp rate/effort will be within specified limits Outcome: Progressing Problem: Fall Risk Goal: Fall risk and fall related injury risk are minimized (interventions related to the fall risk can be found in the flowsheet documentation) Outcome: Progressing Problem: Care of Tracheostomy Goal: Tracheostomy tube and site will be maintained Outcome: Progressing * Sam Ariza RN - 09/24/2022 4:42 PM CDT Problem: Impaired Gas Exchange Goal: Resp rate/effort will be within specified limits Outcome: Progressing Problem: Ineffective Airway Clearance Goal: Patent airway Outcome: Progressing Problem: Fall Risk Goal: Fall risk and fall related injury risk are minimized (interventions related to the fall risk can be found in the flowsheet documentation) Outcome: Progressing Problem: Nutrient: Inadequate protein-energy intake Goal: Total intake will meet estimated nutrient needs Outcome: Progressing Problem: Oxygenation/Respiratory Function Goal: Patent airway Outcome: Progressing Goal: Respiratory rate/effort will be within specified limits Outcome: Progressing Problem: Care of Tracheostomy Goal: Tracheostomy tube and site will be maintained Outcome: Progressing Problem: Potential for Infection Goal: Insertion site without signs/symptoms of infection Outcome: Progressing Problem: Knowledge Deficit Goal: Patient/Significant other demonstrates understanding of Tracheostomy Outcome: Progressing Problem: Communication/Dysarthria Goal: STG - Patient will tolerate PMV trials Outcome: Progressing Problem: Pain/Discomfort Goal: Patient exhibits reduced pain/discomfort as evidenced by pain scores Outcome: Progressing Goal: Patient uses pharmacological and non-pharmacological pain management strategies. Outcome: Progressing Goal: Patient verbalizes acceptable level of pain relief and ability to engage in desired activity. Outcome: Progressing Problem: Skin Integrity Goal: Skin integrity is maintained or improved Outcome: Progressing * Lowell Avilez RD/LD - 09/24/2022 1:39 PM CDT Nutrition Re-Assessment Brief Synopsis: Patient is at Nutrition Risk; Specific criteria can be found in assessment below Nutrition Plan: NPO Continue: Updated recs: Jevity 1.5 at 65 ml/hr. Provides 2340 kcal, 99 g protein, 336 g carbohydrate, 1186 ml free water. + jovan BID +50 ml q 6 hrs free water flush or per MD if on IVF +100 ml q4 hrs free water flush or per MD if not on additional fluids Recommendations to Physician: None Comments: Pt scheduled for follow up. Receiving jevity 1.5 at goal of 65ml/hr. 15ml residual x 24 hrs. 0ml output x 24 hrs. Secretions are improved with scopolamine. Last BM 09/24/22. K+ 4.8. Will continue to monitor as needed. 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 Diet order accuracy Current diet order: NPO Current tube feeding order: Jevity 1.5 @65ml/hr+1 prostat packet Nutrition recommendation: alter/change nutrition order P.O.Intake for the past 48 hrs:No data recorded Food Allergies: No known food allergies GI Concerns: None Chewing/Swallowing: Dysphagia Pain affecting intake: No Admission weight: Weight: 63.5 kg (140 lb) (08/28/22 1101) Recent Weights/Methods 09/13/2022 0200 09/14/2022 0352 09/15/2022 0437 09/17/2022 0400 09/19/2022 0400 09/20/2022 0601 09/21/2022 0400 09/24/2022 0400 Weight: 65.3 kg (144 lb) 60 kg (132 lb 3.2 oz) 64 kg (141 lb) 61.5 kg (135 lb 8 oz) 63.5 kg (139 lb14.4 oz) 63 kg (138 lb 12.8 oz) 63.1 kg (139 lb 3.2 oz) 61.5 kg (135 lb 8 oz) Weight Method (Utilize Scales): Bedscale Bedscale Bedscale Bedscale Bedscale Bedscale -- -- BMI: Body mass index is 18.38 kg/m??. BMI Range: Underweight Wt Comments: Monitoring Height: 182.9 cm (6') IBW/lb (Calculated) Male: 178 , Laboratory values reviewed. Recent Labs Component Name 09/24/22 0759 09/21/22 0640 09/20/22 0648 08/30/22 0039 08/28/22 2224 08/28/22 1251 07/01/22 1634 06/30/22 1039 BUN 14 13 16 - 11 12 - 7 CREATININE 0.42* 0.39* 0.40* - 0.50* 0.51* - 0.58* NA 142 138 139 - 142 139 - 140 POTASSIUM 4.8* 4.4 4.6* - 3.9 4.5 - 4.0 CL 105 104 106 - 111* 103 - 107 CO2 22 24 24 - 24 27 - 24 GLUCOSE 115 109 93 - 86 100 - 115 CALCIUM 10.2 10.0 9.7 - 8.8 9.8 - 9.5 PROT - - - - 6.0 7.5 - 6.2 ALB - - - - 2.0* 2.5* - 2.2* TBILI - - - - 0.6 0.5 - 0.3 ALKPHOS - - - - 67 88 - 65 ALT - - - - 5 6 - 5 AST - - - - 13 14 - 13 ANIONGAP 20* 14 14 - 11 14 - 13 BCR 33* 33* 40* - 22 24* - 12 OSMOLALITY 295 287 289 - 293 288 - 289 AGRATIO - - - - 0.5* 0.5* - 0.6* EGFR >90 >90 >90 - >90 >90 [...] ??? enoxaparin (Lovenox) injection 40 mg ??? glucagon (Glucagen) injection 1 mg ??? glucose (Diabetic Use) (Dex4 Glucose) oral liquid ??? glucose (Diabetic Use) oral gel ??? glucose chew tablet 4 tablet ??? guaiFENesin (Robitussin) solution 10 mL ??? lacosamide (Vimpat) tablet 200 mg ??? levalbuterol (Xopenex) nebulizer solution 1.25 mg ??? levETIRAcetam (Keppra) tablet 2,000 mg ??? polyethylene glycol 3350 (Miralax) packet 17 g ??? scopolamine (Transderm-Scop) 1 patch And ??? scopolamine patch placement confirmation ??? senna-docusate (Senokot-S) tablet 1 tablet ??? sodium chloride (Inhalant) 7 % nebulizer solution 4 mL Skin/Wound: WDL Estimated Energy Needs: KCAL: 9910-6915 (35-40kcal/kg of ABW) Protein (g): 93-109 (20% of estimated needs) Fluid (ml): 1 ml/kcal Needs based on: Kcal/kg- (Comment) Recommended Access Route: TF Nutrition Care Process (1) Nutrition Diagnostic Statement: Inadequate protein-energy intake related to:: decreased ability to consume or tolerate adequate food and/or fluids due to illness;swallowing difficulty as evidenced by:: estimated intake insufficient to meet requirements;BMI less than 19;unintentionalweight loss Nutrition Diagnostic Statement Progress: Nutrition problem continues Nutrition Intervention: Enteral nutrition: Monitoring: PO intake, labs, weight, BM Evaluation: Nutrition Goal: Total intake will meet estimated nutrient needs Nutrition Goal Timeframe: Throughout stay Nutrition Goal Progress: Continue with current goal Ascom #: [id number] * Candy aCraballo MD - 09/24/2022 10:40 AM CDT [facility] INTERNAL MEDICINE PROGRESS NOTE Patient: Bi Tabor Sex: male Age: [age] year old Date of : 1960 Date of Admission: 08/28/2022 Date: 09/24/2022 LOS: 27 SUBJECTIVE Interval History: No acute events overnight. Patient resting comfortably, saturating 98% on 5L. Improvement after scopolamine patch was started. Per Respiratory Therapy, patient is managing secretions well, which are thinner and smaller volume. Hospital Course: 62 M w/ Hx stroke w/??left??sided residual deficits, seizure disorder, dementia, dysphagia w/ recurrent aspiration s/p PEG, zenker divertiuculum s/p diverticulectomy 2022, chronic hypoxic respiratoryfaiure s/p trach 06/2022, PVD s/p L AKA c/b nonhealing foot wound, HTN who presented to [facility] 08/[facility] withshortness of breath, tachypnea, and increased WOB d/t lack of suction instruments at SNF. On admission, no elevated WBC, afebrile but??CXR w/ large R pleural effusion, R lung atelectasis, RUL GGO. Patient was started on broad spectrum abx (vanc, cefe). BCX + staph capitis, SpCx + MRSA andpseudomonas. UCx + pseudomonas. TTE negative for vegetations. Hospital course c/b mucus plugging requiring bronch 09/08, recurrent pseudomonas PNA (repeat SpCx 09/09 + pseudomonas resistant to cefepime).??Antibiotics switched to??meropenem??(09/10-09/17).??Weaned off ventilation in ICU. Tolerated trach collar and transferred to the floor. On interview, patient is able to nod yes/no questions, is not able to speak. Repeat CXR unchanged. 09/18/22 pt became tachycardic into 130s, sinus and required increase in O2. 09/22/22 patient requiredsuctioning for a mucous plug. Scopolamine patch was placed which significantly improved secretions.Breathing well on 6L O2. OBJECTIVE Vital Signs: Vitals: 09/24/22 0259 09/24/22 0400 09/24/22 0806 09/24/22 0939 BP: 126/75 146/79 Pulse: 94 101 109 Resp: 18 18 Temp: 97.5 ??F (36.4 ??C) 97.4 ??F (36.3 ??C) SpO2: 96% 100% 96% Weight: 61.5 kg (135 lb 8 oz) Height: Temp Min: 96.6 ??F (35.9 ??C) Max: 100.9 ??F (38.3 ??C), Pulse Min: 65 Max: 138, Resp Min: 8 Max: 100, BP Min: 85/63 Max: 175/91 Intake & Output: In: 6088 Out: 4050 [Urine:4050] Physical Exam: General: Alert and oriented to person, no acute distress Neck: No JVD or cartoid bruit. Trachea midline. Heart: RRR, Normal S1 and S2. No murmurs appreciated. Chest: Normal breath sounds, wheezes bilaterally R>L, strong cough present, secretions requiringsuction, trach collar Abdomen: Soft, non-tender, non-distended, bowel sounds present, PEG tube without surrounding erythema Extremities: L AKA, No lower extremity edema, 2+ distal peripheral pulses, Small stage 2 ulcer on heel, rewrapped wound. L arm weakness, movement of left arm 3/5 but 0/5 hand Neuro: No focal deficits noted Intake/Output Summary (Last 24 hours) at 09/24/2022 1041 Last data filed at 09/24/2022 0551 Gross per 24 hour Intake 3392 ml Output 2600 ml Net 792 ml Current Medications: Scheduled: ??? 0.9% NaCl 3 mL Intracatheter q8h ??? artificial tears Each Eye q8h ??? atorvastatin 40 mg Enteral Tube QDAY ??? chlorhexidine 15 mL Mouth/Throat BID ??? cloBAZam 20 mg Enteral Tube BID ??? divalproex sprinkle 500 mg Enteral Tube q6h ??? enoxaparin 40 mg Subcutaneous QDAY ??? guaiFENesin 10 mL Enteral Tube q6h ??? lacosamide 200 mg Enteral Tube BID ??? levalbuterol 1.25 mg Inhalation q12h ??? levETIRAcetam 2,000 mg Enteral Tube BID ??? polyethylene glycol 3350 17 g Enteral Tube BID ??? scopolamine 1 patch Transdermal q72h And ??? scopolamine patch placement confirmation Transdermal BID ??? senna-docusate 1 tablet Enteral Tube BID ??? sodium chloride (Inhalant) 4 mL Inhalation BID Continuous: PRN: ??? SALINE LOCK, INSERT AND MAINTAIN AND 0.9% NaCl AND 0.9% NaCl ??? acetaminophen ??? dextrose IV for hypoglycemia OR dextrose IV for hypoglycemia ??? glucagon ??? glucose (Diabetic Use) ??? glucose (Diabetic Use) gel ??? glucose chew tab ASSESSMENT & PLAN Sinus tachycardia - resolved Fever x1 100.5F 09/17/22 - resolved - Pt is high risk for aspiration PNA 2/2 dysphagia, low fluid intake, possibly dehydrated vs other cardiac etiology - Per chart review paroxysmal tachycardia has occurred in the past without known cause - Aspiration precautions - Low threshold for c diff if this becomes a concern. No diarrhea currently - WBC today pending, 6.7 yesterday - EKG showing sinus tachy - Trop, CXR, bld cx and CBC pending - 1L LR over 4 hour infusion (EF 58%) - Increased FWF to 200 ml Q4H ?? Acute on chronic hypoxic respiratory failure MDRO Pneumonia (MRSA, pseudomonas) - resolved - s/p tracheostomy 06/2022 - MRSA and pseudomonas??(Spx CX 09/09 +MRSA, +Pseudo; 09/11: +Pseudo, resistant to cefepime). Completed meropenem for 7 day course (09/10-?09/17) - Continue levalbuterol??nebs, HTS, guafenesin, NaCl neb - Trach collar, RT following - Frequent suctioning, bronchial hygiene, trach care - Procal level negative 09/17 - Wean Oxygen to baseline of 6 L if able to tolerate - Scopolamine patch ?? Staph capitis bacteremia??- resolved Pseudomonas UTI??- resolved - BCx 08/28/22: +Staph capitis. BCX 08/30 negative. - UA Cx 08/29/22: Pseudomonas aeruginosa - Completed??7 day treatment??for UTI and bacteremia w/ negative cultures now - Meropenum EOT 09/17 ?? Seizure disorder - Continue home??meds:??Lacosamide 200 BID, keppra 2 g BID, clobazam 20 BID, depakote 500 ?? Hx CVA c/b L sided deficits - Continue home??atorva 40mg daily - Speech therapy to re-evaluate for PMV when pt trach changed to one without cuff ?? HFpEF Hx of??HTN - Echo??08/2022:??G1DD on TTE?? -??Not currently on??home BP meds - Normotensive ?? 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 PVD?? s/p L AKA c/b nonhealing foot wound Stage 2 - Wound care following: - apply a Mepilex AG foam, secure with Kerlix, change q3 days and prn - off load right heel at all times with heel boot - routine turning and pressure ulcer prevention measures- apply a Mepilex AG foam, secure with Kerlix, change q3 days and prn - off load right heel at all times with heel boot - routine turning and pressure ulcer prevention measures as detailed in 09/14 note ?? Normocytic??Anemia Thrombocytopenia??- resolved - Likely JOSE G and AoCD - Trend CBC -??Transfuse for Hb < 7, plt < 10 ?? Code:??Full Diet:??TF via PEG, strict NPO Electrolytes:??Replete PRN PPx:??Lovenox Access:??PIV, PEG Dispo: Pending SNF referral responses. ?? The above assessment and plan will be discussed with the attending, Dr. Rojo. Candy Caraballo MD Internal Medicine Resident [facility] 09/24/2022 10:41 AM Associated attestation - Amanda Rojo MD - 09/24/2022 4:36 PM CDT Attending Physician Attestation I have seen and examined the patient with the resident and I agree with the findings and plan of care as documented by Dr. Byrd. In addition: 62 yo M PMH chronic hypoxic resp failure on 6L at baseline w/ chronic trach/PEG d/t stroke w/ residual L sided weakness who p/w increased WOB, [place]ypnea from [facility] on 08/28. Required ICU for mechanical ventilation. S/p tx for staph capitis bacteremia (negative echo), MRSA and pseudomonas PNA, and pseudomonas UTI. Course c/b mucous plugging requiring bronch 09/08 and recurrent pseudomonas PNA. Transferred to floor 09/15. #tachycardia: f/u repeat CXR to r/o worsening effusion vs new PNA, if stable will give IVF's as maybe intravascularly deplete from scopolamine patch #chronic hypoxic resp failure, PEG dependent: 6L at baseline, cont TF's #dispo: pending acceptance to SNF History of CVA (cerebrovascular accident) (POA: Yes) Paroxysmal tachycardia, unspecified (CMS/HCC) (POA: Yes) Sepsis without acute organ dysfunction (CMS/HCC) (POA: Yes) Protein calorie malnutrition (CMS/HCC) (POA: Yes) Tachypnea (POA: Yes) Chronic respiratory failure with hypoxia (CMS/HCC) (POA: Yes) Date of Service: 09/24/2022 Amanda Rojo MD Internal Medicine * Romana Laird MSW - 09/24/2022 10:01 AM CDT SW sent to referral to [facility] is also reviewing. CLARITA Varma 09/24/2022 * Dilcia Mccabe RN - 09/24/2022 12:48 AM CDT Problem: Impaired Gas Exchange Goal: Resp rate/effort will be within specified limits Outcome: Progressing Problem: Ineffective Airway Clearance Goal: Patent airway Outcome: Progressing Problem: Fall Risk Goal: Fall risk and fall related injury risk are minimized (interventions related to the fall risk can be found in the flowsheet documentation) Outcome: Progressing Problem: Nutrient: Inadequate protein-energy intake Goal: Total intake will meet estimated nutrient needs Outcome: Progressing Problem: Oxygenation/Respiratory Function Goal: Patent airway Outcome: Progressing Problem: Care of Tracheostomy Goal: Tracheostomy tube and site will be maintained Outcome: Progressing Problem: Potential for Infection Goal: Insertion site without signs/symptoms of infection Outcome: Progressing Problem: Knowledge Deficit Goal: Patient/Significant other demonstrates understanding of Tracheostomy Outcome: Progressing Problem: Communication/Dysarthria Goal: STG - Patient will tolerate PMV trials Outcome: Progressing Problem: Pain/Discomfort Goal: Patient exhibits reduced pain/discomfort as evidenced by pain scores Outcome: Progressing Problem: Skin Integrity Goal: Skin integrity is maintained or improved Outcome: Progressing * Candy Caraballo MD - 09/23/2022 4:52 PM CDT [facility] INTERNAL MEDICINE PROGRESS NOTE Patient: Bi Tabor Sex: male Age: [age] year old Date of : 1960 Date of Admission: 08/28/2022 Date: 09/23/2022 LOS: 26 SUBJECTIVE Interval History: No acute events overnight. Patient resting comfortably, saturating 98% on 5L. Improvement after scopolamine patch was started. Per Respiratory Therapy, patient is managing secretions well, which are thinner and smaller volume. Hospital Course: 62 M w/ Hx CVA w/??left??sided residual deficits, seizure disorder, dementia, dysphagia w/ recurrent aspiration s/p PEG, zenker divertiuculum s/p diverticulectomy 2022, chronic hypoxic respiratory faiure s/p trach 06/2022, PVD s/p L AKA c/b nonhealing foot wound, HTN who presented to [facility] 08/28 with shortness of breath, tachypnea, and increased WOB d/t lack of suction instruments at SNF.On admission,no elevated WBC, afebrile but??CXR w/ large R pleural effusion, R lung atelectasis, RUL GGO. Patient was started on broad spectrum abx (vanc, cefe). BCX + staph capitis, SpCx + MRSA and pseudomonas. UCx + pseudomonas. TTE negative for vegetations. Hospital course c/b mucus plugging requiring bronch 09/08, recurrent pseudomonas PNA (repeat SpCx 09/09 + pseudomonas resistant to cefepime).??Antibiotics switched to??meropenem??(09/10-09/17).??Weaned off ventilation in ICU. Tolerated trach collar and transferred to the floor. On interview, patient is able to nod yes/no questions, is not able to speak.Denies fevers, chills, chest pain, cough, difficulty breathing, nausea at this time. Labs unremarkable, ABG pH 7.40, CO2 45 in the afternoon today. Recent CXR 2 days prior looks unchanged. ??Breathing well on 5L 30 O2. 09/18/22 pt became tachycardic into 130s, sinus and required increase in O2. 1 fever management 100.5F overnight, no repeat fever. CXR, EKG, Trop, 1L LR, increased FWF. OBJECTIVE Vital Signs: Vitals: 09/23/22 0831 09/23/22 1142 09/23/22 1448 09/23/22 1641 BP: 129/88 135/80 Pulse: 88 79 74 Resp: 20 18 Temp: 96.6 ??F (35.9 ??C) 97.5 ??F (36.4 ??C) SpO2: 100% 100% 99% 98% Weight: Height: Temp Min: 96.6 ??F (35.9 ??C) Max: 100.9 ??F (38.3 ??C), Pulse Min: 65 Max: 138, Resp Min: 8 Max: 100, BP Min: 85/63 Max: 175/91 Intake & Output: In: 4996 Out: 3100 [Urine:3100] Physical Exam: General: Alert and oriented to person, no acute distress, sputum in oral cavity and larynx requiring suctioning Neck: No JVD or cartoid bruit. Trachea midline. Heart: RRR, Normal S1 and S2. No murmurs appreciated. Chest: Normal breath sounds, wheezes bilaterally R>L,strong cough present, secretions requiring suction, trach collar Abdomen: Soft, non-tender, non-distended, bowel sounds present, PEG tube without surrounding erythema Extremities: L AKA, No lower extremity edema, 2+ distal peripheral pulses, Small stage 2 ulcer on heel, rewrapped wound. L arm weakness, movement of left arm 3/5 but 0/5 hand Neuro: No focal deficits noted Intake/Output Summary (Last 24 hours) at 09/23/2022 1653 Last data filed at 09/23/2022 1144 Gross per 24 hour Intake 2696 ml Output 2950 ml Net -254 ml Current Medications: Scheduled: ??? 0.9% NaCl 3 mL Intracatheter q8h ??? artificial tears Each Eye q8h ??? atorvastatin 40 mg Enteral Tube QDAY ??? chlorhexidine 15 mL Mouth/Throat BID ??? cloBAZam 20 mg Enteral Tube BID ??? divalproex sprinkle 500 mg Enteral Tube q6h ??? enoxaparin 40 mg Subcutaneous QDAY ??? guaiFENesin 10 mL Enteral Tube q6h ??? lacosamide 200 mg Enteral Tube BID ??? levalbuterol 1.25 mg Inhalation q12h ??? levETIRAcetam 2,000 mg Enteral Tube BID ??? polyethylene glycol 3350 17 g Enteral Tube BID ??? scopolamine 1 patch Transdermal q72h And ??? scopolamine patch placement confirmation Transdermal BID ??? senna-docusate 1 tablet Enteral Tube BID ??? sodium chloride (Inhalant) 4 mL Inhalation BID Continuous: PRN: ??? SALINE LOCK, INSERT AND MAINTAIN AND 0.9% NaCl AND 0.9% NaCl ??? acetaminophen ??? dextrose IV for hypoglycemia OR dextrose IV for hypoglycemia ??? glucagon ??? glucose (Diabetic Use) ??? glucose (Diabetic Use) gel ??? glucose chew tab ASSESSMENT & PLAN Sinus tachycardia - resolved Fever x1 100.5F 09/17/22 - resolved - Pt is high risk for aspiration PNA 2/2 dysphagia, low fluid intake, possibly dehydrated vs other cardiac etiology - Per chart review paroxysmal tachycardia has occurred in the past without known cause - Aspiration precautions - Low threshold for c diff if this becomes a concern. No diarrhea currently - WBC today pending, 6.7 yesterday - EKG showing sinus tachy - Trop, CXR, bld cx and CBC pending - 1L LR over 4 hour infusion (EF 58%) - Increased FWF to 200 ml Q4H ?? Acute on chronic hypoxic respiratory failure MDRO Pneumonia (MRSA, pseudomonas) - resolved - s/p tracheostomy 06/2022 - MRSA and pseudomonas??(Spx CX 09/09 +MRSA, +Pseudo; 09/11: +Pseudo, resistant to cefepime). Completed meropenem for 7 day course (09/10-?09/17) - Continue levalbuterol??nebs, HTS, guafenesin, NaCl neb - Trach collar, RT following - Frequent suctioning, bronchial hygiene, trach care - Procal level negative 09/17 - Wean Oxygen to baseline of 6 L if able to tolerate - Scopolamine patch ?? Staph capitis bacteremia??- resolved Pseudomonas UTI??- resolved - BCx 08/28/22: +Staph capitis. BCX 08/30 negative. - UA Cx 08/29/22: Pseudomonas aeruginosa - Completed??7 day treatment??for UTI and bacteremia w/ negative cultures now - Meropenum EOT 09/17 ?? Seizure disorder - Continue home??meds:??Lacosamide 200 BID, keppra 2 g BID, clobazam 20 BID, depakote 500 ?? Hx CVA c/b L sided deficits - Continue home??atorva 40mg daily - Speech therapy to re-evaluate for PMV when pt trach changed to one without cuff ?? HFpEF Hx of??HTN - Echo??08/2022:??G1DD on TTE?? -??Not currently on??home BP meds - Normotensive ?? 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 PVD?? s/p L AKA c/b nonhealing foot wound Stage 2 - Wound care following: - apply a Mepilex AG foam, secure with Kerlix, change q3 days and prn - off load right heel at all times with heel boot - routine turning and pressure ulcer prevention measures- apply a Mepilex AG foam, secure with Kerlix, change q3 days and prn - off load right heel at all times with heel boot - routine turning and pressure ulcer prevention measures as detailed in 09/14 note ?? Normocytic??Anemia Thrombocytopenia??- resolved - Likely JOSE G and AoCD - Trend CBC -??Transfuse for Hb < 7, plt < 10 ?? Code:??Full Diet:??TF via PEG, strict NPO Electrolytes:??Replete PRN PPx:??Lovenox Access:??PIV, PEG Dispo: Pending SNF referral responses. ?? The above assessment and plan will be discussed with the attending, Dr. Fuentes. Candy Caraballo MD Internal Medicine Resident [facility] 09/23/2022 4:53 PM Associated attestation - Petra Fuentes MD - 09/23/2022 4:57 PM CDT I have seen and examined the patient. I agree with the assessment and plan as documented by the resident. History of CVA (cerebrovascular accident) (POA: Yes) Paroxysmal tachycardia, unspecified (CMS/HCC) (POA: Yes) Febrile (POA: Unknown) Seizure (CMS/HCC) (POA: Yes) Sepsis without acute organ dysfunction (CMS/HCC) (POA: Yes) Protein calorie malnutrition (CMS/HCC) (POA: Yes) Pulmonary infiltrate (POA: Yes) Acute on chronic respiratory failure with hypoxia (CMS/HCC) (POA: Yes) Tachycardia (POA: Yes) Tachypnea (POA: Yes) SOB (shortness of breath) (POA: Yes) Please see note for further details. Discussed with care coordination team. Total time spent more than 38 minutes, more than 50% spent for coordinating patient care and counseling about treatment plan. Petra uFentes MD, MRCP (), FACP, FRCP [employer] massage therapist Please feel free to text page me through [employer]. Happy to answer your questions. * Kirby Dowell, RN - 09/23/2022 4:37 PM CDT Problem: Impaired Gas Exchange Goal: Resp rate/effort will be within specified limits Outcome: Progressing Problem: Ineffective Airway Clearance Goal: Patent airway Outcome: Progressing Problem: Fall Risk Goal: Fall risk and fall related injury risk are minimized (interventions related to the fall risk can be found in the flowsheet documentation) Outcome: Progressing Problem: Nutrient: Inadequate protein-energy intake Goal: Total intake will meet estimated nutrient needs Outcome: Progressing Problem: Oxygenation/Respiratory Function Goal: Patent airway Outcome: Progressing Goal: Respiratory rate/effort will be within specified limits Outcome: Progressing Problem: Care of Tracheostomy Goal: Tracheostomy tube and site will be maintained Outcome: Progressing Problem: Potential for Infection Goal: Insertion site without signs/symptoms of infection Outcome: Progressing Problem: Knowledge Deficit Goal: Patient/Significant other demonstrates understanding of Tracheostomy Outcome: Progressing Problem: Communication/Dysarthria Goal: STG - Patient will tolerate PMV trials Outcome: Progressing Problem: Pain/Discomfort Goal: Patient exhibits reduced pain/discomfort as evidenced by pain scores Outcome: Progressing Goal: Patient uses pharmacological and non-pharmacological pain management strategies. Outcome: Progressing Goal: Patient verbalizes acceptable level of pain relief and ability to engage in desired activity. Outcome: Progressing Problem: Skin Integrity Goal: Skin integrity is maintained or improved Outcome: Progressing * Clover Crowley RN - 09/23/2022 9:16 AM CDT Case Management Progress Note Anticipated level of care at discharge: Custodial - Medicaid Patient is medically ready for discharge. Currently on trach collar 6L at 28% with fairly frequent suctioning needs. Patient was previously at [facility] and they will not accept patient back. He is on the settings they discharged him on. Informed by SW that patient cannot return to facility he came from due to them not being able to meet his needs. SW notified of LTACH inability to accept andthat additional SNF referrals need to be sent. SW following for placement. Basic Needs Assessment (BNA) Score: n/a Anticipated Discharge Date: 09/27/22 Transportation at Discharge: Ambulance Transportation to MD: Equipment at Home: Equipment at Home: Facility Equipment Additional DME needed: Name: Clover Crowley RN Case Manager [phone] * Hansa Medina RN - 09/22/2022 11:02 PM CDT Problem: Fall Risk Goal: Fall risk and fall related injury risk are minimized (interventions related to the fall risk can be found in the flowsheet documentation) Outcome: Progressing Problem: Nutrient: Inadequate protein-energy intake Goal: Total intake will meet estimated nutrient needs Outcome: Progressing * Kirby Dowell RN - 09/22/2022 3:36 PM CDT Problem: Impaired Gas Exchange Goal: Resp rate/effort will be within specified limits Outcome: Progressing Problem: Ineffective Airway Clearance Goal: Patent airway Outcome: Progressing Problem: Fall Risk Goal: Fall risk and fall related injury risk are minimized (interventions related to the fall risk can be found in the flowsheet documentation) Outcome: Progressing Problem: Nutrient: Inadequate protein-energy intake Goal: Total intake will meet estimated nutrient needs Outcome: Progressing Problem: Oxygenation/Respiratory Function Goal: Patent airway Outcome: Progressing Goal: Respiratory rate/effort will be within specified limits Outcome: Progressing Problem: Care of Tracheostomy Goal: Tracheostomy tube and site will be maintained Outcome: Progressing Problem: Potential for Infection Goal: Insertion site without signs/symptoms of infection Outcome: Progressing Problem: Knowledge Deficit Goal: Patient/Significant other demonstrates understanding of Tracheostomy Outcome: Progressing Problem: Communication/Dysarthria Goal: STG - Patient will tolerate PMV trials Outcome: Progressing Problem: Pain/Discomfort Goal: Patient exhibits reduced pain/discomfort as evidenced by pain scores Outcome: Progressing Goal: Patient uses pharmacological and non-pharmacological pain management strategies. Outcome: Progressing Goal: Patient verbalizes acceptable level of pain relief and ability to engage in desired activity. Outcome: Progressing Problem: Skin Integrity Goal: Skin integrity is maintained or improved Outcome: Progressing * Romana Laird MSW - 09/22/2022 1:59 PM CDT SW spoke to Daina from [facility] [phone] regarding patient's return to [facility]. She stated that at this time they are no longer able to meet the patient's needs and cannot accept him back. CM following for LTAC placement. SW spoke to Abimbola from [facility] [phone] and she stated that they accept trachs. Referral sent. CLARITA Varma 09/22/2022 * Candy Caraballo MD - 09/22/2022 1:26 PM CDT [facility] INTERNAL MEDICINE PROGRESS NOTE Patient: Bi Tabor Sex: male Age: [age] year old Date of : 1960 Date of Admission: 08/28/2022 Date: 09/22/2022 LOS: 25 SUBJECTIVE Interval History: No acute events overnight. Patient resting comfortably, saturating 98% on 5L. Hospital Course: 62 M w/ Hx CVA w/??left??sided residual deficits, seizure disorder, dementia, dysphagia w/ recurrent aspiration s/p PEG, zenker divertiuculum s/p diverticulectomy 2022, chronic hypoxic respiratory faiure s/p trach 06/2022, PVD s/p L AKA c/b nonhealing foot wound, HTN who [facility] with shortness of breath, tachypnea, and increased WOB d/t lack of suction instruments at SNF.On admission,no elevated WBC, afebrile but??CXR w/ large R pleural effusion, R lung atelectasis, RUL GGO. Patient was started on broad spectrum abx (vanc, cefe). BCX + staph capitis, SpCx + MRSA and pseudomonas. UCx + pseudomonas. TTE negative for vegetations. Hospital course c/b mucus plugging requiring bronch 09/08, recurrent pseudomonas PNA (repeat SpCx 09/09 + pseudomonas resistant to cefepime).??Antibiotics switched to??meropenem??(09/10-09/17).??Weaned off ventilation in ICU. Tolerated trach collar and transferred to the floor. On interview, patient is able to nod yes/no questions, is not able to speak.Denies fevers, chills, chest pain, cough, difficulty breathing, nausea at this time. Labs unremarkable, ABG pH 7.40, CO2 45 in the afternoon today. Recent CXR 2 days prior looks unchanged. ??Breathing well on 5L 30 O2. 09/18/22 pt became tachycardic into 130s, sinus and required increase in O2. 1 fever management 100.5F overnight, no repeat fever. CXR, EKG, Trop, 1L LR, increased FWF. OBJECTIVE Vital Signs: Vitals: 09/22/22 0414 09/22/22 0757 09/22/22 0904 09/22/22 1038 BP: 113/76 120/76 104/88 Pulse: 80 85 91 84 Resp: 18 18 18 Temp: 98.3 ??F (36.8 ??C) 98 ??F (36.7 ??C) 97.6 ??F (36.4 ??C) SpO2: 100% 98% 99% 100% Weight: Height: Temp Min: 97.2 ??F (36.2 ??C) Max: 100.9 ??F (38.3 ??C), Pulse Min: 65 Max: 138, Resp Min: 8 Max: 100, BP Min: 85/63 Max: 175/91 Intake & Output: In: 5044 Out: 3000 [Urine:3000] Physical Exam: General: Alert and oriented to person, no acute distress, sputum in oral cavity and larynx requiring suctioning Neck: No JVD or cartoid bruit. Trachea midline. Heart: RRR, Normal S1 and S2. No murmurs appreciated. Chest: Normal breath sounds, wheezes bilaterally R>L,strong cough present, secretions requiring suction, trach collar Abdomen: Soft, non-tender, non-distended, bowel sounds present, PEG tube without surrounding erythema Extremities: L AKA, No lower extremity edema, 2+ distal peripheral pulses, Small stage 2 ulcer on heel, rewrapped wound. L arm weakness, movement of left arm 3/5 but 0/5 hand Neuro: No focal deficits noted Intake/Output Summary (Last 24 hours) at 09/22/2022 1326 Last data filed at 09/22/2022 0853 Gross per 24 hour Intake 2661 ml Output 900 ml Net 1761 ml Current Medications: Scheduled: ??? 0.9% NaCl 3 mL Intracatheter q8h ??? artificial tears Each Eye q8h ??? atorvastatin 40 mg Enteral Tube QDAY ??? chlorhexidine 15 mL Mouth/Throat BID ??? cloBAZam 20 mg Enteral Tube BID ??? divalproex sprinkle 500 mg Enteral Tube q6h ??? enoxaparin 40 mg Subcutaneous QDAY ??? guaiFENesin 10 mL Enteral Tube q6h ??? lacosamide 200 mg Enteral Tube BID ??? levalbuterol 1.25 mg Inhalation q12h ??? levETIRAcetam 2,000 mg Enteral Tube BID ??? polyethylene glycol 3350 17 g Enteral Tube BID ??? senna-docusate 1 tablet Enteral Tube BID ??? sodium chloride (Inhalant) 4 mL Inhalation BID Continuous: PRN: ??? SALINE LOCK, INSERT AND MAINTAIN AND 0.9% NaCl AND 0.9% NaCl ??? acetaminophen ??? dextrose IV for hypoglycemia OR dextrose IV for hypoglycemia ??? glucagon ??? glucose (Diabetic Use) ??? glucose (Diabetic Use) gel ??? glucose chew tab ASSESSMENT & PLAN Sinus tachycardia - resolved Fever x1 100.5F 09/17/22 - resolved - Pt is high risk for aspiration PNA 2/2 dysphagia, low fluid intake, possibly dehydrated vs other cardiac etiology - Per chart review paroxysmal tachycardia has occurred in the past without known cause - Aspiration precautions - Low threshold for c diff if this becomes a concern. No diarrhea currently - WBC today pending, 6.7 yesterday - EKG showing sinus tachy - Trop, CXR, bld cx and CBC pending - 1L LR over 4 hour infusion (EF 58%) - Increased FWF to 200 ml Q4H ?? Acute on chronic hypoxic respiratory failure MDRO Pneumonia (MRSA, pseudomonas) - resolved - s/p tracheostomy 06/2022 - MRSA and pseudomonas??(Spx CX 09/09 +MRSA, +Pseudo; 09/11: +Pseudo, resistant to cefepime). Completed meropenem for 7 day course (09/10-?09/17) - Continue levalbuterol??nebs, HTS, guafenesin, NaCl neb - Trach collar, RT following - Frequent suctioning, bronchial hygiene, trach care - Procal level negative 09/17 - Wean Oxygen to baseline of 6 L if able to tolerate ?? Staph capitis bacteremia??- resolved Pseudomonas UTI??- resolved - BCx 08/28/22: +Staph capitis. BCX 08/30 negative. - UA Cx 08/29/22: Pseudomonas aeruginosa - Completed??7 day treatment??for UTI and bacteremia w/ negative cultures now - Meropenum EOT 09/17 ?? Seizure disorder - Continue home??meds:??Lacosamide 200 BID, keppra 2 g BID, clobazam 20 BID, depakote 500 ?? Hx CVA c/b L sided deficits - Continue home??atorva 40mg daily - Speech therapy to re-evaluate for PMV when pt trach changed to one without cuff ?? HFpEF Hx of??HTN - Echo??08/2022:??G1DD on TTE?? -??Not currently on??home BP meds - Normotensive ?? 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 PVD?? s/p L AKA c/b nonhealing foot wound Stage 2 - Wound care following: - apply a Mepilex AG foam, secure with Kerlix, change q3 days and prn - off load right heel at all times with heel boot - routine turning and pressure ulcer prevention measures- apply a Mepilex AG foam, secure with Kerlix, change q3 days and prn - off load right heel at all times with heel boot - routine turning and pressure ulcer prevention measures as detailed in 09/14 note ?? Normocytic??Anemia Thrombocytopenia??- resolved - Likely JOSE G and AoCD - Trend CBC -??Transfuse for Hb < 7, plt < 10 ?? Code:??Full Diet:??TF via PEG, strict NPO Electrolytes:??Replete PRN PPx:??Lovenox Access:??PIV, PEG Dispo: Pending SNF referral responses. ?? The above assessment and plan will be discussed with the attending, Dr. Fuentes. Candy Caraballo MD Internal Medicine Resident [facility] 09/22/2022 1:26 PM Associated attestation - Petra Fuentes MD - 09/22/2022 2:09 PM CDT I have seen and examined the patient. I agree with the assessment and plan as documented by the resident. History of CVA (cerebrovascular accident) (POA: Yes) Paroxysmal tachycardia, unspecified (CMS/HCC) (POA: Yes) Febrile (POA: Unknown) Seizure (CMS/HCC) (POA: Yes) Sepsis without acute organ dysfunction (CMS/HCC) (POA: Yes) Protein calorie malnutrition (CMS/HCC) (POA: Yes) Pulmonary infiltrate (POA: Yes) Acute on chronic respiratory failure with hypoxia (CMS/HCC) (POA: Yes) Tachycardia (POA: Yes) Tachypnea (POA: Yes) SOB (shortness of breath) (POA: Yes) Please see note for further details. Discussed with care coordination team. Total time spent more than 38 minutes, more than 50% spent for coordinating patient care and counseling about treatment plan. Petra Fuentes MD, MRCP (), FACP, FRCP [employer]ensed massage therapist Please feel free to text page me through [employer]. Happy to answer your questions. * Randall Cedillo, ALFRED - 09/22/2022 8:15 AM CDT Rapid Response Nurse Rounding Note [address] [address] Patient: Bi Taobr : 1960 Location: Patient assessed during rapid response rounds. Patient oxygen saturation 98% with FiO2 at 28% on high humidity trach collar. No rapid response interventions necessary at this time. Randall Cedillo RN Vital Signs: Patient Vitals for the past 6 hrs: Temp Pulse Resp BP BP Method 09/22/22 0757 98 ??F (36.7 ??C) 85 18 120/76 Automatic 09/22/22 0414 98.3 ??F (36.8 ??C) 80 18 113/76 -- Randall Cedillo RN Rapid Response Nurse [phone] * China Rizzo RN - 09/22/2022 4:51 AM CDT Problem: Impaired Gas Exchange Goal: Resp rate/effort will be within specified limits Outcome: Progressing Problem: Ineffective Airway Clearance Goal: Patent airway Outcome: Progressing Problem: Fall Risk Goal: Fall risk and fall related injury risk are minimized (interventions related to the fall risk can be found in the flowsheet documentation) Outcome: Progressing Problem: Nutrient: Inadequate protein-energy intake Goal: Total intake will meet estimated nutrient needs Outcome: Progressing Problem: Oxygenation/Respiratory Function Goal: Patent airway Outcome: Progressing Goal: Respiratory rate/effort will be within specified limits Outcome: Progressing Problem: Care of Tracheostomy Goal: Tracheostomy tube and site will be maintained Outcome: Progressing Problem: Potential for Infection Goal: Insertion site without signs/symptoms of infection Outcome: Progressing Problem: Knowledge Deficit Goal: Patient/Significant other demonstrates understanding of Tracheostomy Outcome: Progressing Problem: Communication/Dysarthria Goal: STG - Patient will tolerate PMV trials Outcome: Progressing Problem: Pain/Discomfort Goal: Patient exhibits reduced pain/discomfort as evidenced by pain scores Outcome: Progressing Goal: Patient uses pharmacological and non-pharmacological pain management strategies. Outcome: Progressing Goal: Patient verbalizes acceptable level of pain relief and ability to engage in desired activity. Outcome: Progressing Problem: Skin Integrity Goal: Skin integrity is maintained or improved Outcome: Progressing * Candy Caraballo MD - 09/21/2022 3:22 PM CDT [facility] INTERNAL MEDICINE PROGRESS NOTE Patient: Bi Tabor Sex: male Age: [age] year old Date of : 1960 Date of Admission: 08/28/2022 Date: 09/21/2022 LOS: 24 SUBJECTIVE Interval History: Had mucous plugging and was suctioned by rapid nurse overnight, on 10L of O2. Hospital Course: 62 M w/ Hx CVA w/??left??sided residual deficits, seizure disorder, dementia, dysphagia w/ recurrent aspiration s/p PEG, zenker divertiuculum s/p diverticulectomy 2022, chronic hypoxic respiratory faiure s/p trach 06/2022, PVD s/p L AKA c/b nonhealing foot wound, HTN who presented to [facility] 08/28 with shortness of breath, tachypnea, and increased WOB d/t lack of suction instruments at SNF.On admission,no elevated WBC, afebrile but??CXR w/ large R pleural effusion, R lung atelectasis, RUL GGO. Patient was started on broad spectrum abx (vanc, cefe). BCX + staph capitis, SpCx + MRSA and pseudomonas. UCx + pseudomonas. TTE negative for vegetations. Hospital course c/b mucus plugging requiring bronch 09/08, recurrent pseudomonas PNA (repeat SpCx 09/09 + pseudomonas resistant to cefepime).??Antibiotics switched to??meropenem??(09/10-09/17).??Weaned off ventilation in ICU. Tolerated trach collar and transferred to the floor. On interview, patient is able to nod yes/no questions, is not able to speak.Denies fevers, chills, chest pain, cough, difficulty breathing, nausea at this time. Labs unremarkable, ABG pH 7.40, CO2 45 in the afternoon today. Recent CXR 2 days prior looks unchanged. ??Breathing well on 5L 30 O2. 09/18/22 pt became tachycardic into 130s, sinus and required increase in O2. 1 fever management 100.5F overnight, no repeat fever. CXR, EKG, Trop, 1L LR, increased FWF. OBJECTIVE Vital Signs: Vitals: 09/21/22 0454 09/21/22 0847 09/21/22 0956 09/21/22 1209 BP: 133/82 175/91 123/82 Pulse: 100 88 85 87 Resp: 18 18 20 Temp: 98.1 ??F (36.7 ??C) 98 ??F (36.7 ??C) 97.9 ??F (36.6 ??C) SpO2: 97% 97% 98% 98% Weight: Height: Temp Min: 97.2 ??F (36.2 ??C) Max: 100.9 ??F (38.3 ??C), Pulse Min: 65 Max: 138, Resp Min: 8 Max: 100, BP Min: 85/63 Max: 175/91 Intake & Output: In: 3012 Out: 4100 [Urine:4100] Physical Exam: General: Alert and oriented to person, no acute distress, sputum in oral cavity and larynx requiring suctioning Neck: No JVD or cartoid bruit. Trachea midline. Heart: RRR, Normal S1 and S2. No murmurs appreciated. Chest: Normal breath sounds, wheezes bilaterally R>L,strong cough present, secretions requiring suction, trach collar Abdomen: Soft, non-tender, non-distended, bowel sounds present, PEG tube without surrounding erythema Extremities: L AKA, No lower extremity edema, 2+ distal peripheral pulses, Small stage 2 ulcer on heel, rewrapped wound. L arm weakness, movement of left arm 3/5 but 0/5 hand Neuro: No focal deficits noted Intake/Output Summary (Last 24 hours) at 09/21/2022 1523 Last data filed at 09/21/2022 0850 Gross per 24 hour Intake 2794 ml Output 2100 ml Net 694 ml Current Medications: Scheduled: ??? 0.9% NaCl 3 mL Intracatheter q8h ??? artificial tears Each Eye q8h ??? atorvastatin 40 mg Enteral Tube QDAY ??? chlorhexidine 15 mL Mouth/Throat BID ??? cloBAZam 20 mg Enteral Tube BID ??? divalproex sprinkle 500 mg Enteral Tube q6h ??? enoxaparin 40 mg Subcutaneous QDAY ??? guaiFENesin 10 mL Enteral Tube q6h ??? lacosamide 200 mg Enteral Tube BID ??? levalbuterol 1.25 mg Inhalation q12h ??? levETIRAcetam 2,000 mg Enteral Tube BID ??? polyethylene glycol 3350 17 g Enteral Tube BID ??? senna-docusate 1 tablet Enteral Tube BID ??? sodium chloride (Inhalant) 4 mL Inhalation BID Continuous: PRN: ??? SALINE LOCK, INSERT AND MAINTAIN AND 0.9% NaCl AND 0.9% NaCl ??? acetaminophen ??? dextrose IV for hypoglycemia OR dextrose IV for hypoglycemia ??? glucagon ??? glucose (Diabetic Use) ??? glucose (Diabetic Use) gel ??? glucose chew tab ASSESSMENT & PLAN Sinus tachycardia - resolved Fever x1 100.5F 09/17/22 - resolved - Pt is high risk for aspiration PNA 2/2 dysphagia, low fluid intake, possibly dehydrated vs other cardiac etiology - Per chart review paroxysmal tachycardia has occurred in the past without known cause - Aspiration precautions - Low threshold for c diff if this becomes a concern. No diarrhea currently - WBC today pending, 6.7 yesterday - EKG showing sinus tachy - Trop, CXR, bld cx and CBC pending - 1L LR over 4 hour infusion (EF 58%) - Increased FWF to 200 ml Q4H ?? Acute on chronic hypoxic respiratory failure MDRO Pneumonia (MRSA, pseudomonas) - resolved - s/p tracheostomy 06/2022 - MRSA and pseudomonas??(Spx CX 09/09 +MRSA, +Pseudo; 09/11: +Pseudo, resistant to cefepime). Completed meropenem for 7 day course (09/10-?09/17) - Continue levalbuterol??nebs, HTS, guafenesin, NaCl neb - Trach collar, RT following - Frequent suctioning, bronchial hygiene, trach care - Procal level negative 09/17 - Wean Oxygen to baseline of 6 L if able to tolerate ?? Staph capitis bacteremia??- resolved Pseudomonas UTI??- resolved - BCx 08/28/22: +Staph capitis. BCX 08/30 negative. - UA Cx 08/29/22: Pseudomonas aeruginosa - Completed??7 day treatment??for UTI and bacteremia w/ negative cultures now - Meropenum EOT 09/17 ?? Seizure disorder - Continue home??meds:??Lacosamide 200 BID, keppra 2 g BID, clobazam 20 BID, depakote 500 ?? Hx CVA c/b L sided deficits - Continue home??atorva 40mg daily - Speech therapy to re-evaluate for PMV when pt trach changed to one without cuff ?? HFpEF Hx of??HTN - Echo??08/2022:??G1DD on TTE?? -??Not currently on??home BP meds - Normotensive ?? 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 PVD?? s/p L AKA c/b nonhealing foot wound Stage 2 - Wound care following: - apply a Mepilex AG foam, secure with Kerlix, change q3 days and prn - off load right heel at all times with heel boot - routine turning and pressure ulcer prevention measures- apply a Mepilex AG foam, secure with Kerlix, change q3 days and prn - off load right heel at all times with heel boot - routine turning and pressure ulcer prevention measures as detailed in 09/14 note ?? Normocytic??Anemia Thrombocytopenia??- resolved - Likely JOSE G and AoCD - Trend CBC -??Transfuse for Hb < 7, plt < 10 ?? Code:??Full Diet:??TF via PEG, strict NPO Electrolytes:??Replete PRN PPx:??Lovenox Access:??PIV, PEG Dispo: Pending SNF referral responses. ?? The above assessment and plan will be discussed with the attending, Dr. Fuentes. Candy Caraballo MD Internal Medicine Resident [facility] 09/21/2022 3:23 PM Associated attestation - Petra Fuentes MD - 09/22/2022 8:39 AM CDT I have seen and examined the patient. I agree with the assessment and plan as documented by the resident. History of CVA (cerebrovascular accident) (POA: Yes) Paroxysmal tachycardia, unspecified (CMS/HCC) (POA: Yes) Febrile (POA: Unknown) Seizure (CMS/HCC) (POA: Yes) Sepsis without acute organ dysfunction (CMS/HCC) (POA: Yes) Protein calorie malnutrition (CMS/HCC) (POA: Yes) Pulmonary infiltrate (POA: Yes) Acute on chronic respiratory failure with hypoxia (CMS/HCC) (POA: Yes) Tachycardia (POA: Yes) Tachypnea (POA: Yes) SOB (shortness of breath) (POA: Yes) Please see note for further details. Discussed with care coordination team. Total time spent more than 38 minutes, more than 50% spent for coordinating patient care and counseling about treatment plan. Petra Fuentes MD, MRCP (), FACP, FRCP [employer]ensed massage therapist Please feel free to text page me through [employer]. Happy to answer your questions. * Lowell Avilez, RD/LD - 09/21/2022 12:49 PM CDT Nutrition Re-Assessment Brief Synopsis: Patient is at Nutrition Risk; Specific criteria can be found in assessment below Nutrition Plan: NPO Updated recs: Jevity 1.5 at 65 ml/hr. Provides 2340 kcal, 99 g protein, 336 g carbohydrate, 1186 ml free water. + jovan BID +50 ml q 6 hrs free water flush or per MD if on IVF +100 ml q4 hrs free water flush or per MD if not on additional fluids Recommendations to Physician: See above Comments: Pt scheduled for reassessment. Receiving TF at goal of 65ml/hr. See updated recs. Pt has right heel wound, will order jovan BID through PEG. 25ml residual x 24 hrs. 0ml of output 09/20/. 2BM x 24 hrs. RN notes that patient is having frequent stools, he has not received his senna or miralax today to see if this helps. Lytes WNL. Will continue to monitor as needed. 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 Diet order accuracy Current diet order: NPO Current tube feeding order: Jevity 1.5 @65ml/hr+1 prostat packet Nutrition recommendation: alter/change nutrition order P.O.Intake for the past 48 hrs:% Meal Taken Av % Min: 0 % Max: 0 % Supplement(s) Consumed- Last 48 hours None Food Allergies: No known food allergies GI Concerns: None Chewing/Swallowing: Dysphagia Pain affecting intake: No Admission weight: Weight: 63.5 kg (140 lb) (08/28/22 1101) Recent Weights/Methods 09/12/2022 0400 09/13/2022 0200 09/14/2022 0352 09/15/2022 0437 09/17/2022 0400 09/19/2022 0400 09/20/2022 0601 09/21/2022 0400 Weight: 65.5 kg (144 lb 6.4 oz) 65.3 kg (144 lb) 60 kg (132 lb 3.2 oz) 64 kg (141 lb) 61.5 kg (135 lb 8 oz) 63.5 kg (139 lb 14.4 oz) 63 kg (138 lb 12.8 oz) 63.1 kg (139 lb 3.2 oz) Weight Method (Utilize Scales): Bedscale Bedscale Bedscale Bedscale Bedscale Bedscale Bedscale -- BMI: Body mass index is 18.88 kg/m??. BMI Range: Underweight Wt Comments: Monitoring Height: 182.9 cm (6') IBW/lb (Calculated) Male: 178 , Laboratory values reviewed. Recent Labs Component Name 09/21/22 0640 09/20/22 0648 09/19/22 0816 08/30/22 0039 08/28/22 2224 08/28/22 1251 07/01/22 1634 06/30/22 1039 BUN 13 16 15 - 11 12 - 7 CREATININE 0.39* 0.40* 0.40* - 0.50* 0.51* - 0.58* NA 138 139 138 - 142 139 - 140 POTASSIUM 4.4 4.6* 4.3 - 3.9 4.5 - 4.0 CL 104 106 105 - 111* 103 - 107 CO2 24 24 26 - 24 27 - 24 GLUCOSE 109 93 129* - 86 100 - 115 CALCIUM 10.0 9.7 9.8 - 8.8 9.8 - 9.5 PROT - - - - 6.0 7.5 - 6.2 ALB - - - - 2.0* 2.5* - 2.2* TBILI - - - - 0.6 0.5 - 0.3 ALKPHOS - - - - 67 88 - 65 ALT - - - - 5 6 - 5 AST - - - - 13 14 - 13 ANIONGAP 14 14 11 - 11 14 - 13 BCR 33* 40* 38* - 22 24* - 12 OSMOLALITY 287 289 289 - 293 288 - 289 AGRATIO - - - - 0.5* 0.5* - 0.6* EGFR >90 >90 >90 - >90 >90 [...] ??? enoxaparin (Lovenox) injection 40 mg ??? glucagon (Glucagen) injection 1 mg ??? glucose (Diabetic Use) (Dex4 Glucose) oral liquid ??? glucose (Diabetic Use) oral gel ??? glucose chew tablet 4 tablet ??? guaiFENesin (Robitussin) solution 10 mL ??? lacosamide (Vimpat) tablet 200 mg ??? levalbuterol (Xopenex) nebulizer solution 1.25 mg ??? levETIRAcetam (Keppra) tablet 2,000 mg ??? polyethylene glycol 3350 (Miralax) packet 17 g ??? senna-docusate (Senokot-S) tablet 1 tablet ??? sodium chloride (Inhalant) 7 % nebulizer solution 4 mL Skin/Wound: WDL Estimated Energy Needs: KCAL: 8647-5315 (35-40kcal/kg of ABW) Protein (g): 93-109 (20% of estimated needs) Fluid (ml): 1 ml/kcal Needs based on: Kcal/kg- (Comment) Recommended Access Route: TF Nutrition Care Process (1) Nutrition Diagnostic Statement: Inadequate protein-energy intake related to:: decreased ability to consume or tolerate adequate food and/or fluids due to illness;swallowing difficulty as evidenced by:: estimated intake insufficient to meet requirements;BMI less than 19;unintentionalweight loss Nutrition Diagnostic Statement Progress: Nutrition problem continues Nutrition Intervention: Enteral nutrition: Monitoring: TF, labs, weights, BM, I/O Evaluation: Nutrition Goal: Total intake will meet estimated nutrient needs Nutrition Goal Timeframe: Throughout stay Nutrition Goal Progress: Continue with current goal Ascom #: [id number] * Karla Yun RN - 09/21/2022 10:59 AM CDT Problem: Impaired Gas Exchange Goal: Resp rate/effort will be within specified limits Outcome: Progressing Problem: Ineffective Airway Clearance Goal: Patent airway Outcome: Progressing Problem: Fall Risk Goal: Fall risk and fall related injury risk are minimized (interventions related to the fall risk can be found in the flowsheet documentation) Outcome: Progressing Problem: Oxygenation/Respiratory Function Goal: Patent airway Outcome: Progressing Goal: Respiratory rate/effort will be within specified limits Outcome: Progressing * Grover Gould RN - 09/21/2022 2:49 AM CDT Problem: Impaired Gas Exchange Goal: Resp rate/effort will be within specified limits Outcome: Progressing Problem: Ineffective Airway Clearance Goal: Patent airway Outcome: Progressing Problem: Fall Risk Goal: Fall risk and fall related injury risk are minimized (interventions related to the fall risk can be found in the flowsheet documentation) Outcome: Progressing Problem: Nutrient: Inadequate protein-energy intake Goal: Total intake will meet estimated nutrient needs Outcome: Progressing Problem: Oxygenation/Respiratory Function Goal: Patent airway Outcome: Progressing Goal: Respiratory rate/effort will be within specified limits Outcome: Progressing Problem: Care of Tracheostomy Goal: Tracheostomy tube and site will be maintained Outcome: Progressing Problem: Potential for Infection Goal: Insertion site without signs/symptoms of infection Outcome: Progressing Problem: Knowledge Deficit Goal: Patient/Significant other demonstrates understanding of Tracheostomy Outcome: Progressing Problem: Communication/Dysarthria Goal: STG - Patient will tolerate PMV trials Outcome: Progressing Problem: Pain/Discomfort Goal: Patient exhibits reduced pain/discomfort as evidenced by pain scores Outcome: Progressing Goal: Patient uses pharmacological and non-pharmacological pain management strategies. Outcome: Progressing Goal: Patient verbalizes acceptable level of pain relief and ability to engage in desired activity. Outcome: Progressing Problem: Skin Integrity Goal: Skin integrity is maintained or improved Outcome: Progressing * Gianfranco Bedoya RN - 09/20/2022 7:18 PM CDT Pt noted O2 saturation dropping to 87% on 8L , 30% FiO2. Pt was suctioned and noted O2 sats increase to 92-93% but unable to maintain. Resp therapy notified because despite suctioning and with increase FiO2 pt cannot maintain O2 saturation above 90% also rapid nurse Randall notified and came to bedside and suctioned pt. Currently pt back to 10L, 30%FiO2, sating 98%. * Candy Caraballo MD - 09/20/2022 3:58 PM CDT [facility] INTERNAL MEDICINE PROGRESS NOTE Patient: Bi Tabor Sex: male Age: [age] year old Date of : 1960 Date of Admission: 08/28/2022 Date: 09/20/2022 LOS: 23 SUBJECTIVE Interval History: No acute events overnight. Tachycardia resolving, on 8L of O2. Hospital Course: 62 M w/ Hx CVA w/??left??sided residual deficits, seizure disorder, dementia, dysphagia w/ recurrent aspiration s/p PEG, zenker divertiuculum s/p diverticulectomy 2022, chronic hypoxic respiratory faiure s/p trach 06/2022, PVD s/p L AKA c/b nonhealing foot wound, HTN who presented to [facility] 08/28 with shortness of breath, tachypnea, and increased WOB d/t lack of suction instruments at SNF.On admission,no elevated WBC, afebrile but??CXR w/ large R pleural effusion, R lung atelectasis, RUL GGO. Patient was started on broad spectrum abx (vanc, cefe). BCX + staph capitis, SpCx + MRSA and pseudomonas. UCx + pseudomonas. TTE negative for vegetations. Hospital course c/b mucus plugging requiring bronch 09/08, recurrent pseudomonas PNA (repeat SpCx 09/09 + pseudomonas resistant to cefepime).??Antibiotics switched to??meropenem??(09/10-09/17).??Weaned off ventilation in ICU. Tolerated trach collar and transferred to the floor. On interview, patient is able to nod yes/no questions, is not able to speak.Denies fevers, chills, chest pain, cough, difficulty breathing, nausea at this time. Labs unremarkable, ABG pH 7.40, CO2 45 in the afternoon today. Recent CXR 2 days prior looks unchanged. ??Breathing well on 5L 30 O2. 09/18/22 pt became tachycardic into 130s, sinus and required increase in O2. 1 fever management 100.5F overnight, no repeat fever. CXR, EKG, Trop, 1L LR, increased FWF. OBJECTIVE Vital Signs: Vitals: 09/20/22 0601 09/20/22 0848 09/20/22 0900 09/20/22 1118 BP: 137/82 129/84 Pulse: 84 79 92 Resp: 20 20 16 Temp: 98.1 ??F (36.7 ??C) 99.4 ??F (37.4 ??C) SpO2: 100% 100% Weight: 63 kg (138 lb 12.8 oz) Height: Temp Min: 97.2 ??F (36.2 ??C) Max: 100.9 ??F (38.3 ??C), Pulse Min: 65 Max: 138, Resp Min: 8 Max: 100, BP Min: 85/63 Max: 161/83 Intake & Output: In: 2494 Out: 2950 [Urine:2950] Physical Exam: General: Alert and oriented to person, no acute distress, sputum in oral cavity and larynx requiring suctioning Neck: No JVD or cartoid bruit. Trachea midline. Heart: RRR, Normal S1 and S2. No murmurs appreciated. Chest: Normal breath sounds, wheezes bilaterally R>L,strong cough present, secretions requiring suction, trach collar Abdomen: Soft, non-tender, non-distended, bowel sounds present, PEG tube without surrounding erythema Extremities: L AKA, No lower extremity edema, 2+ distal peripheral pulses, Small stage 2 ulcer on heel, rewrapped wound. L arm weakness, movement of left arm 3/5 but 0/5 hand Neuro: No focal deficits noted Intake/Output Summary (Last 24 hours) at 09/20/2022 1558 Last data filed at 09/20/2022 1054 Gross per 24 hour Intake 1007 ml Output 2000 ml Net -993 ml Current Medications: Scheduled: ??? 0.9% NaCl 3 mL Intracatheter q8h ??? artificial tears Each Eye q8h ??? atorvastatin 40 mg Enteral Tube QDAY ??? chlorhexidine 15 mL Mouth/Throat BID ??? cloBAZam 20 mg Enteral Tube BID ??? divalproex sprinkle 500 mg Enteral Tube q6h ??? enoxaparin 40 mg Subcutaneous QDAY ??? guaiFENesin 10 mL Enteral Tube q6h ??? lacosamide 200 mg Enteral Tube BID ??? levalbuterol 1.25 mg Inhalation q12h ??? levETIRAcetam 2,000 mg Enteral Tube BID ??? polyethylene glycol 3350 17 g Enteral Tube BID ??? senna-docusate 1 tablet Enteral Tube BID ??? sodium chloride (Inhalant) 4 mL Inhalation BID Continuous: PRN: ??? SALINE LOCK, INSERT AND MAINTAIN AND 0.9% NaCl AND 0.9% NaCl ??? acetaminophen ??? dextrose IV for hypoglycemia OR dextrose IV for hypoglycemia ??? glucagon ??? glucose (Diabetic Use) ??? glucose (Diabetic Use) gel ??? glucose chew tab ASSESSMENT & PLAN Sinus tachycardia - resolved Fever x1 100.5F 09/17/22 - resolved - Pt is high risk for aspiration PNA 2/2 dysphagia, low fluid intake, possibly dehydrated vs other cardiac etiology - Per chart review paroxysmal tachycardia has occurred in the past without known cause - Aspiration precautions - Low threshold for c diff if this becomes a concern. No diarrhea currently - WBC today pending, 6.7 yesterday - EKG showing sinus tachy - Trop, CXR, bld cx and CBC pending - 1L LR over 4 hour infusion (EF 58%) - Increased FWF to 200 ml Q4H ?? Acute on chronic hypoxic respiratory failure MDRO Pneumonia (MRSA, pseudomonas) - resolved - s/p tracheostomy 06/2022 - MRSA and pseudomonas??(Spx CX 09/09 +MRSA, +Pseudo; 09/11: +Pseudo, resistant to cefepime). Completed meropenem for 7 day course (09/10-?09/17) - Continue levalbuterol??nebs, HTS, guafenesin, NaCl neb - Trach collar, RT following - Frequent suctioning, bronchial hygiene, trach care - Procal level negative 09/17 - Wean Oxygen to baseline of 6 L if able to tolerate ?? Staph capitis bacteremia??- resolved Pseudomonas UTI??- resolved - BCx 08/28/22: +Staph capitis. BCX 08/30 negative. - UA Cx 08/29/22: Pseudomonas aeruginosa - Completed??7 day treatment??for UTI and bacteremia w/ negative cultures now - Meropenum EOT 09/17 ?? Seizure disorder - Continue home??meds:??Lacosamide 200 BID, keppra 2 g BID, clobazam 20 BID, depakote 500 ?? Hx CVA c/b L sided deficits - Continue home??atorva 40mg daily - Speech therapy to re-evaluate for PMV when pt trach changed to one without cuff ?? HFpEF Hx of??HTN - Echo??08/2022:??G1DD on TTE?? -??Not currently on??home BP meds - Normotensive ?? 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 PVD?? s/p L AKA c/b nonhealing foot wound Stage 2 - Wound care following: - apply a Mepilex AG foam, secure with Kerlix, change q3 days and prn - off load right heel at all times with heel boot - routine turning and pressure ulcer prevention measures- apply a Mepilex AG foam, secure with Kerlix, change q3 days and prn - off load right heel at all times with heel boot - routine turning and pressure ulcer prevention measures as detailed in 09/14 note ?? Normocytic??Anemia Thrombocytopenia??- resolved - Likely JOSE G and AoCD - Trend CBC -??Transfuse for Hb < 7, plt < 10 ?? Code:??Full Diet:??TF via PEG, strict NPO Electrolytes:??Replete PRN PPx:??Lovenox Access:??PIV, PEG Dispo: Pending SNF referral responses. ?? The above assessment and plan will be discussed with the attending, Dr. Fuentes. Candy Caraballo MD Internal Medicine Resident [facility] 09/20/2022 3:58 PM Associated attestation - Petra Fuentes MD - 09/20/2022 4:17 PM CDT I have seen and examined the patient. I agree with the assessment and plan as documented by the resident. History of CVA (cerebrovascular accident) (POA: Yes) Paroxysmal tachycardia, unspecified (CMS/HCC) (POA: Yes) Febrile (POA: Unknown) Seizure (CMS/HCC) (POA: Yes) Sepsis without acute organ dysfunction (CMS/HCC) (POA: Yes) Protein calorie malnutrition (CMS/HCC) (POA: Yes) Pulmonary infiltrate (POA: Yes) Acute on chronic respiratory failure with hypoxia (CMS/HCC) (POA: Yes) Tachycardia (POA: Yes) Tachypnea (POA: Yes) SOB (shortness of breath) (POA: Yes) Please see note for further details. Discussed with care coordination team. Total time spent more than 38 minutes, more than 50% spent for coordinating patient care and counseling about treatment plan. Petra Fuentes MD, MRCP (), FACP, FRCP [employer] massage therapist Please feel free to text page me through [employer]. Happy to answer your questions. * Kirby Dowell RN - 09/20/2022 3:27 PM CDT Problem: Impaired Gas Exchange Goal: Resp rate/effort will be within specified limits Outcome: Progressing Problem: Ineffective Airway Clearance Goal: Patent airway Outcome: Progressing Problem: Fall Risk Goal: Fall risk and fall related injury risk are minimized (interventions related to the fall risk can be found in the flowsheet documentation) Outcome: Progressing Problem: Nutrient: Inadequate protein-energy intake Goal: Total intake will meet estimated nutrient needs Outcome: Progressing Problem: Oxygenation/Respiratory Function Goal: Patent airway Outcome: Progressing Goal: Respiratory rate/effort will be within specified limits Outcome: Progressing Problem: Care of Tracheostomy Goal: Tracheostomy tube and site will be maintained Outcome: Progressing Problem: Potential for Infection Goal: Insertion site without signs/symptoms of infection Outcome: Progressing Problem: Knowledge Deficit Goal: Patient/Significant other demonstrates understanding of Tracheostomy Outcome: Progressing Problem: Communication/Dysarthria Goal: STG - Patient will tolerate PMV trials Outcome: Progressing Problem: Pain/Discomfort Goal: Patient exhibits reduced pain/discomfort as evidenced by pain scores Outcome: Progressing Goal: Patient uses pharmacological and non-pharmacological pain management strategies. Outcome: Progressing Goal: Patient verbalizes acceptable level of pain relief and ability to engage in desired activity. Outcome: Progressing Problem: Skin Integrity Goal: Skin integrity is maintained or improved Outcome: Progressing * Ebony Martinez RN - 09/19/2022 11:43 PM CDT Problem: Impaired Gas Exchange Goal: Resp rate/effort will be within specified limits Outcome: Progressing Problem: Ineffective Airway Clearance Goal: Patent airway Outcome: Progressing Problem: Fall Risk Goal: Fall risk and fall related injury risk are minimized (interventions related to the fall risk can be found in the flowsheet documentation) Outcome: Progressing Problem: Nutrient: Inadequate protein-energy intake Goal: Total intake will meet estimated nutrient needs Outcome: Progressing Problem: Oxygenation/Respiratory Function Goal: Patent airway Outcome: Progressing Goal: Respiratory rate/effort will be within specified limits Outcome: Progressing Problem: Care of Tracheostomy Goal: Tracheostomy tube and site will be maintained Outcome: Progressing Problem: Potential for Infection Goal: Insertion site without signs/symptoms of infection Outcome: Progressing Problem: Knowledge Deficit Goal: Patient/Significant other demonstrates understanding of Tracheostomy Outcome: Progressing Problem: Communication/Dysarthria Goal: STG - Patient will tolerate PMV trials Outcome: Progressing Problem: Pain/Discomfort Goal: Patient exhibits reduced pain/discomfort as evidenced by pain scores Outcome: Progressing Goal: Patient uses pharmacological and non-pharmacological pain management strategies. Outcome: Progressing Goal: Patient verbalizes acceptable level of pain relief and ability to engage in desired activity. Outcome: Progressing Problem: Skin Integrity Goal: Skin integrity is maintained or improved Outcome: Progressing * Renetta Eden RN - 09/19/2022 7:48 AM CDT Problem: Impaired Gas Exchange Goal: Resp rate/effort will be within specified limits Outcome: Progressing Problem: Ineffective Airway Clearance Goal: Patent airway Outcome: Progressing Problem: Fall Risk Goal: Fall risk and fall related injury risk are minimized (interventions related to the fall risk can be found in the flowsheet documentation) Outcome: Progressing Problem: Nutrient: Inadequate protein-energy intake Goal: Total intake will meet estimated nutrient needs Outcome: Progressing Problem: Oxygenation/Respiratory Function Goal: Patent airway Outcome: Progressing Goal: Respiratory rate/effort will be within specified limits Outcome: Progressing Problem: Care of Tracheostomy Goal: Tracheostomy tube and site will be maintained Outcome: Progressing Problem: Potential for Infection Goal: Insertion site without signs/symptoms of infection Outcome: Progressing Problem: Knowledge Deficit Goal: Patient/Significant other demonstrates understanding of Tracheostomy Outcome: Progressing Problem: Communication/Dysarthria Goal: STG - Patient will tolerate PMV trials Outcome: Progressing Problem: Pain/Discomfort Goal: Patient exhibits reduced pain/discomfort as evidenced by pain scores Outcome: Progressing Goal: Patient uses pharmacological and non-pharmacological pain management strategies. Outcome: Progressing Goal: Patient verbalizes acceptable level of pain relief and ability to engage in desired activity. Outcome: Progressing Problem: Skin Integrity Goal: Skin integrity is maintained or improved Outcome: Progressing * Garcia Olmstead MD - 09/19/2022 7:07 AM CDT [facility] INTERNAL MEDICINE PROGRESS NOTE Patient: Bi Tabor Sex: male Age: [age] year old Date of : 1960 Date of Admission: 08/28/2022 Date: 09/19/2022 LOS: 22 SUBJECTIVE Interval History: Pt denies pain of SOB. Pt remained afebrile since 1x fever of 100.5F. Pt mental status remained stable, no acute changes. Intensive pulmonary therapy yesterday. Pt remains on 8L of 28% FiO2. Repeat CXR shows significant improvement in r-side. Hospital Course: Mr. Tabor is a 62 M w/ Hx CVA w/ left sided residual deficits, seizure disorder, dementia, dysphagia w/ recurrent aspiration s/p PEG, zenker divertiuculum s/p diverticulectomy 2022, chronic hypoxic respiratory faiure s/p trach 06/2022, PVD s/p L AKA c/b nonhealing foot wound, HTN who presented to [facility] 08/28 with shortness of breath, tachypnea, and increased WOB d/t lack of suction instruments at SNF.On admission, no elevated WBC, afebrile but CXR w/ large R pleural effusion, R lung atelectasis, RULGGO. Patient was started on broad spectrum abx (vanc, cefe). BCX + staph capitis, SpCx + MRSA and pseudomonas. UCx + pseudomonas. TTE negative for vegetations. Hospital course c/b mucus plugging requiring bronch 09/08, recurrent pseudomonas PNA (repeat SpCx 09/09 + pseudomonas resistant to cefepime).Antibiotics switched to meropenem (09/10-09/17). Weaned off ventilation in ICU. Tolerated trach collar and transferred to the floor. On interview, patient is able to nod yes/no questions, is not able to speak. Denies fevers, chills, chest pain, cough, difficulty breathing, nausea at this time. Labs un remarkable, ABG pH 7.40, CO2 45 in the afternoon today. Recent CXR 2 days prior looks unchanged. Breathing well on 5L 30 O2. 09/18/22 pt became tachycardic into 130s, sinus and required increase in O2. 1 fever management 100.5F overnight, no repeat fever. CXR, EKG, Trop, 1L LR, increased FWF. Tachycardia improved with increasing fluids, Trops negative, EKG wnl. CXR revealed r-side white out, improvement on repeat CXR 09/19 after aggressive bronchial hygiene (HTS, guaifenesin, IPV therapy, inhalers and deep lavage). OBJECTIVE Vital Signs: Vitals: 09/18/22 2141 09/18/22 2353 09/19/22 0347 09/19/22 0400 BP: 139/90 124/75 Pulse: (!) 113 105 98 Resp: 20 20 20 Temp: 99.7 ??F (37.6 ??C) 99.5 ??F (37.5 ??C) SpO2: 100% 100% 100% Weight: 63.5 kg (139 lb 14.4 oz) Height: Temp Min: 97.2 ??F (36.2 ??C) Max: 100.9 ??F (38.3 ??C), Pulse Min: 65 Max: 138, Resp Min: 8 Max: 100, BP Min: 85/63 Max: 161/83 Intake & Output: In: 3360 Out: 1400 [Urine:1400] Physical Exam: General: Alert and oriented to person, no acute distress, sputum in oral cavity and larynx requiring suctioning Neck: No JVD or cartoid bruit. Trachea midline. Heart: RRR, Normal S1 and S2. No murmurs appreciated. Chest: Normal breath sounds, wheezes bilaterally improved from yesterday,strong cough present, secretions requiring suction, trach collar Abdomen: Soft, non-tender, non-distended, bowel sounds present, PEG tube without surrounding erythema Extremities: L AKA, No lower extremity edema, 2+ distal peripheral pulses, Small stage 2 ulcer on heel, rewrapped wound. L arm weakness, movement of left arm 3/5 but 0/5 hand Neuro: No focal deficits noted Intake/Output Summary (Last 24 hours) at 09/19/2022 0707 Last data filed at 09/19/2022 0617 Gross per 24 hour Intake 1487 ml Output 1000 ml Net 487 ml Current Medications: Scheduled: ??? 0.9% NaCl 3 mL Intracatheter q8h ??? artificial tears Each Eye q8h ??? atorvastatin 40 mg Enteral Tube QDAY ??? chlorhexidine 15 mL Mouth/Throat BID ??? cloBAZam 20 mg Enteral Tube BID ??? divalproex sprinkle 500 mg Enteral Tube q6h ??? enoxaparin 40 mg Subcutaneous QDAY ??? guaiFENesin 10 mL Enteral Tube q6h ??? lacosamide 200 mg Enteral Tube BID ??? levalbuterol 1.25 mg Inhalation q12h ??? levETIRAcetam 2,000 mg Enteral Tube BID ??? meropenem 1,000 mg Intravenous q8h ??? polyethylene glycol 3350 17 g Enteral Tube BID ??? senna-docusate 1 tablet Enteral Tube BID ??? sodium chloride (Inhalant) 4 mL Inhalation BID Continuous: PRN: ??? SALINE LOCK, INSERT AND MAINTAIN AND 0.9% NaCl AND 0.9% NaCl ??? acetaminophen ??? dextrose IV for hypoglycemia OR dextrose IV for hypoglycemia ??? glucagon ??? glucose (Diabetic Use) ??? glucose (Diabetic Use) gel ??? glucose chew tab Significant Lab Results: Recent Results (from the past 24 hour(s)) GLUCOSE - POINT OF CARE Collection Time: 09/18/22 7:32 AM Result Value Ref Range Glucose WB/POC 132 (H) 70 - 115 mg/dL Specimen Type Cap Fingerstick EKG 12-LEAD Collection Time: 09/18/22 9:03 AM Result Value Ref Range Ventricular Rate 131 BPM Atrial Rate 131 BPM P-R Interval 146 ms QRS Duration ms 76 ms Q-T Interval ms 302 ms QTC Calculation (Bezet) 445 ms Calculated P Boswell 57 degrees Calculated R Boswell 26 degrees Calculated T Boswell 88 degrees Interpretation EKG SINUS TACHYCARDIA NONSPECIFIC T WAVE ABNORMALITY ABNORMAL ECG NO PREVIOUS ECGS AVAILABLE CULTURE SPUTUM+GRAM STAIN Collection Time: 09/18/22 1:46 PM Specimen: Sputum Trach/Endo ; Microbiology Result Value Ref Range Gram Stain Light Polymorphonuclear cells Gram Stain Light Gram-positive cocci Gram Stain Light Gram-negative coccobacilli TROPONIN-I HIGH SENSITIVE Collection Time: 09/18/22 2:51 PM Result Value Ref Range Troponin I High Sensitive 7 <=35 ng/L CBC W AUTO DIFFERENTIAL Collection Time: 09/18/22 2:51 PM Result Value Ref Range WBC 14.1 (H) 3.5 - 10.5 10??3/uL RBC 3.65 (L) 4.30 - 5.70 10??6/uL Hemoglobin 11.5 (L) 12.0 - 17.6 g/dL Hematocrit 35.8 35.2 - 51.7 % MCV 98.1 80.7 - 98.3 fL MCH 31.5 26.7 - 34.0 pg MCHC 32.1 30.8 - 35.9 g/dL RDW-SD 51.4 (H) 36.0 - 50.0 fL RDW-CV 14.2 11.2 - 14.8 % Platelet Count 206 150 - 400 10??3/uL MPV 12.7 9.4 - 12.9 fL nRBC Absolute 0.00 0 10??3/uL nRBC Auto 0.0 0 /100 WBC Neutrophils % 68.7 35.0 - 70.0 % Lymphocytes % 18.9 (L) 20.0 - 43.0 % Monocytes % 11.1 5.0 - 13.0 % Eosinophils % 0.8 0.0 - 6.0 % Basophil % 0.2 0.0 - 2.0 % Neutrophils Absolute 9.70 (H) 1.60 - 7.00 10??3/uL Lymphocyte Absolute 2.66 1.10 - 3.90 10??3/uL Monocytes Absolute 1.57 (H) 0.26 - 1.07 10??3/uL Eosinophils Absolute 0.11 0.00 - 0.47 10??3/uL Basophils Absolute 0.03 0.00 - 0.08 10??3/uL Immature Granulocytes % 0.3 0.0 - 1.0 % Immature Granulocytes Absolute 0.04 GLUCOSE - POINT OF CARE Collection Time: 09/18/22 4:38 PM Result Value Ref Range Glucose WB/POC 107 70 - 115 mg/dL Specimen Type Cap Fingerstick GLUCOSE - POINT OF CARE Collection Time: 09/19/22 12:42 AM Result Value Ref Range Glucose WB/POC 133 (H) 70 - 115 mg/dL Specimen Type Arterial GLUCOSE - POINT OF CARE Collection Time: 09/19/22 6:25 AM Result Value Ref Range Glucose WB/POC 139 (H) 70 - 115 mg/dL Specimen Type Arterial Microbiology: 09/08 SPUTUM CX Moderate Pseudomonas aeruginosa??Abnormal?? 09/18 Bld cx pending Imaging & Studies: 09/12 FINDINGS/IMPRESSION: ?? Tracheostomy tube tip overlies upper thoracic trachea. ?? Mild interval clearing of right basilar airspace opacification from prior exam dated 09/09/2022. The left lung is relatively clear. No pleural effusion or pneumothorax is noted. The cardiomediastinal silhouette is within normal limits given patient rotation. No acute osseous abnormality is noted. 09/07 IMPRESSION: ?? 1. No CT evidence of pulmonary embolism. ?? 2. Debris and secretions within the in right main bronchus with worsening collapse of the right lower and middle lobe. There is increasing left to right mediastinal shift. The right upper lobe appears partially collapsed. There is dense consolidation within all 3 lobes of the right lung which likely a combination of atelectasis and aspiration. There is a right-sided pleural effusion. 09/18/22 CXR FINDINGS/IMPRESSION: Lines, tubes, hardware: * Tracheostomy tube terminates in the midthoracic trachea. ?? There is interval worsening of the [id number] mediastinal shift secondary to complete collapse of the right lung with cup of the right mainstem bronchus consistent with mucous plugging. Small amount of underlying right-sided pleural effusion cannot be entirely excluded. There is no pneumothorax. The cardiomediastinal silhouette shifted to the right hemithorax. The visible bony thorax is intact. 09/19/21 CXR- pending final read My read: mucus plug resolved ASSESSMENT & PLAN Mucus Plug Sinus tachycardia Fever x1 100.5F 09/17/22 Leukocytosis - Aspiration precautions - WBC doubled 6.7 --> 14.1--> 9.3, improved with aggressive bronchial hygiene and removal of thick secretions - Tachycardia improved s/p 1L LR over 4 hour infusion (EF 58%) and Increased FWF to 200 ml Q4H, increase again to 200 Q3H today as pt HR moderately elevated. EKG showing sinus tachy, Trops negative. - As evidenced by improving (and resolved) CXR, WBC and tachycardia while remaining afebrile, symptoms most likely related to large mucus plugging on R- side, and negative procal 09/17 - 09/18 Bld cx NGTD - Likely not infectious, will DC meropenum - Continue IPV therapy with deep lavage/suctioning, levalbuterol nebs, HTS, guafenesin, NaCl neb with RT Acute on chronic hypoxic respiratory failure MDRO Pneumonia (MRSA, pseudomonas) - resolved - s/p tracheostomy 06/2022 - MRSA and pseudomonas (Spx CX 09/09 +MRSA, +Pseudo; 09/11: +Pseudo, resistant to cefepime). Completed meropenem for 7 day course (09/10- 09/17) - Procal level negative 09/17 - Wean Oxygen to baseline of 6 L if able to tolerate ?? Staph capitis bacteremia - resolved Pseudomonas UTI - resolved - BCx 08/28/22: +Staph capitis. BCX 08/30 negative. - UA Cx 08/29/22: Pseudomonas aeruginosa - Completed 7 day treatment for UTI and bacteremia w/ negative cultures now - Meropenum EOT 09/17 ?? Seizure disorder - Continue home meds: Lacosamide 200 BID, keppra 2 g BID, clobazam 20 BID, depakote 500 ?? Hx CVA withresidual L sided deficits - Continue home atorva 40mg daily - Speech therapy to re-evaluate for PMV when pt trach changed to one without cuff ?? HFpEF Hx of HTN - Echo 08/2022: G1DD on TTE - Not currently on home BP meds - Normotensive ?? 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 PVD L AKA c/b nonhealing foot wound Stage 2, Present on admission - Wound care following: - apply a Mepilex AG foam, secure with Kerlix, change q3 days and prn - off load right heel at all times with heel boot - routine turning and pressure ulcer prevention measures- apply a Mepilex AG foam, secure with Kerlix, change q3 days and prn - off load right heel at all times with heel boot - routine turning and pressure ulcer prevention measures as detailed in 09/14 note - Skin precautions ?? Normocytic Anemia Thrombocytopenia - resolved - Likely JOSE G and AoCD - Trend CBC - Transfuse for Hb < 7, plt < 10 ?? Code: Full Diet: TF via PEG, strict NPO Electrolytes: Replete PRN PPx: Lovenox Access: PIV, PEG Dispo: Pending LTAC/SNF referral responses. The above assessment and plan will be discussed with the attending. This note is not final until attested by attending physician. Garcia Olmstead MD Internal Medicine Resident [facility] 09/19/2022 7:07 AM Associated attestation - Petra Fuentes MD - 09/20/2022 7:54 AM CDT I have seen and examined the patient. I agree with the assessment and plan as documented by the resident. History of CVA (cerebrovascular accident) (POA: Yes) Paroxysmal tachycardia, unspecified (CMS/HCC) (POA: Yes) Febrile (POA: Unknown) Seizure (CMS/HCC) (POA: Yes) Sepsis without acute organ dysfunction (CMS/HCC) (POA: Yes) Protein calorie malnutrition (CMS/HCC) (POA: Yes) Pulmonary infiltrate (POA: Yes) Acute on chronic respiratory failure with hypoxia (CMS/HCC) (POA: Yes) Tachycardia (POA: Yes) Tachypnea (POA: Yes) SOB (shortness of breath) (POA: Yes) Please see note for further details. Discussed with care coordination team. Total time spent more than 38 minutes, more than 50% spent for coordinating patient care and counseling about treatment plan. Petra Fuentes MD, MRCP (), FACP, FRCP [employer] Winder[employer]ensed massage therapist Please feel free to text page me through [employer]. Happy to answer your questions. * Garcia Olmstead MD - 09/18/2022 5:12 PM CDT Plan of Care - Internal Medicine Pt remained tachy this AM into 130s improved upon 1L LR hydration. Also increased FWF to 200 Q4H. Pt saturating >95% on 8L of 28% FiO2. Pt is alert, without acute mental status changes, however spiked a fever last night of 100.5 F x1 bld cx sent. WBCs doubled (6.7 --> 14), CXR revealed R sided white out likely 2/2 mucus plugging. RT following closely, were able to perform deep lavage, removed moderate thick secretions and some thin, pink tinged secretion, send for sputum culture. Pulm recommending IPV therapy and BID hypertonic saline therapy/aggressive bronchial hygiene. Restarted on Meropenum (last dose 09/17) d/t MDRO PNA. Plan is to consult ID, as well. * Garcia Olmstead MD - 09/18/2022 7:45 AM CDT [facility] INTERNAL MEDICINE PROGRESS NOTE Patient: Bi Tabor Sex: male Age: [age] year old Date of : 1960 Date of Admission: 08/28/2022 Date: 09/18/2022 LOS: 21 SUBJECTIVE Interval History: Over last 24 hrs, pt tachycardic into 130s in sinus, tylenol given for possible pain-induced concern with no improvement pt tolerating, no residuals. Pt have 1 fever management 100.5F overnight, no repeat fever. Secretions remain clear and not increased, pt mental status remained stable, no acute change. Jensen is cap not indwelling. CBC pending this AM. Pt denied pain this AM, endorses feeling well. Discussed with RN the plan for this pt: EKG, Trop, CXR, CBC, Bld cx, 1L LR, increased FWF. Hospital Course: Mr. Tabor is a 62 M w/ Hx CVA w/ left sided residual deficits, seizure disorder, dementia, dysphagia w/ recurrent aspiration s/p PEG, zenker divertiuculum s/p diverticulectomy 2022, chronic hypoxic respiratory faiure s/p trach 06/2022, PVD s/p L AKA c/b nonhealing foot wound, HTN who presented to [facility] 08/28 with shortness of breath, tachypnea, and increased WOB d/t lack of suction instruments at SNF.On admission, no elevated WBC, afebrile but CXR w/ large R pleural effusion, R lung atelectasis, RULGGO. Patient was started on broad spectrum abx (vanc, cefe). BCX + staph capitis, SpCx + MRSA and pseudomonas. UCx + pseudomonas. TTE negative for vegetations. Hospital course c/b mucus plugging requiring bronch 09/08, recurrent pseudomonas PNA (repeat SpCx 09/09 + pseudomonas resistant to cefepime).Antibiotics switched to meropenem (09/10-09/17). Weaned off ventilation in ICU. Tolerated trach collar and transferred to the floor. On interview, patient is able to nod yes/no questions, is not able to speak. Denies fevers, chills, chest pain, cough, difficulty breathing, nausea at this time. Labs un remarkable, ABG pH 7.40, CO2 45 in the afternoon today. Recent CXR 2 days prior looks unchanged. Breathing well on 5L 30 O2. 09/18/22 pt became tachycardic into 130s, sinus and required increase in O2. 1 fever management 100.5F overnight, no repeat fever. CXR, EKG, Trop, 1L LR, increased FWF. OBJECTIVE Vital Signs: Vitals: 09/17/22 2036 09/17/22 2146 09/17/22 2329 09/18/22 0342 BP: 141/86 120/80 Pulse: (!) 132 (!) 134 (!) 132 Resp: Temp: 98 ??F (36.7 ??C) 97.5 ??F (36.4 ??C) 97.9 ??F (36.6 ??C) SpO2: 94% 98% Weight: Height: Temp Min: 97.2 ??F (36.2 ??C) Max: 100.9 ??F (38.3 ??C), Pulse Min: 65 Max: 136, Resp Min: 8 Max: 100, BP Min: 85/63 Max: 161/83 Intake & Output: In: 2784 Out: 2200 [Urine:2200] Physical Exam: General: Alert and oriented to person, no acute distress, sputum in oral cavity and larynx requiring suctioning Neck: No JVD or cartoid bruit. Trachea midline. Heart: RRR, Normal S1 and S2. No murmurs appreciated. Chest: Normal breath sounds, wheezes bilaterally R>L,strong cough present, secretions requiring suction, trach collar Abdomen: Soft, non-tender, non-distended, bowel sounds present, PEG tube without surrounding erythema Extremities: L AKA, No lower extremity edema, 2+ distal peripheral pulses, Small stage 2 ulcer on heel, rewrapped wound. L arm weakness, movement of left arm 3/5 but 0/5 hand Neuro: No focal deficits noted Intake/Output Summary (Last 24 hours) at 09/18/2022 0795 Last data filed at 09/18/2022 0532 Gross per 24 hour Intake 1873 ml Output 1350 ml Net 523 ml Current Medications: Scheduled: ??? 0.9% NaCl 3 mL Intracatheter q8h ??? artificial tears Each Eye q8h ??? atorvastatin 40 mg Enteral Tube QDAY ??? chlorhexidine 15 mL Mouth/Throat BID ??? cloBAZam 20 mg Enteral Tube BID ??? divalproex sprinkle 500 mg Enteral Tube q6h ??? enoxaparin 40 mg Subcutaneous QDAY ??? guaiFENesin 10 mL Enteral Tube q6h ??? lacosamide 200 mg Enteral Tube BID ??? levalbuterol 1.25 mg Inhalation q12h ??? levETIRAcetam 2,000 mg Enteral Tube BID ??? polyethylene glycol 3350 17 g Enteral Tube BID ??? senna-docusate 1 tablet Enteral Tube BID ??? sodium chloride (Inhalant) 4 mL Inhalation BID Continuous: PRN: ??? SALINE LOCK, INSERT AND MAINTAIN AND 0.9% NaCl AND 0.9% NaCl ??? acetaminophen ??? dextrose IV for hypoglycemia OR dextrose IV for hypoglycemia ??? glucagon ??? glucose (Diabetic Use) ??? glucose (Diabetic Use) gel ??? glucose chew tab Significant Lab Results: Recent Results (from the past 24 hour(s)) GLUCOSE - POINT OF CARE Collection Time: 09/17/22 8:18 AM Result Value Ref Range Glucose WB/POC 111 70 - 115 mg/dL Specimen Type Cap Fingerstick GLUCOSE - POINT OF CARE Collection Time: 09/17/22 11:27 AM Result Value Ref Range Glucose WB/POC 153 (H) 70 - 115 mg/dL Specimen Type Cap Fingerstick GLUCOSE - POINT OF CARE Collection Time: 09/17/22 11:48 PM Result Value Ref Range Glucose WB/POC 159 (H) 70 - 115 mg/dL Specimen Type Cap Fingerstick GLUCOSE - POINT OF CARE Collection Time: 09/18/22 6:52 AM Result Value Ref Range Glucose WB/POC 163 (H) 70 - 115 mg/dL Specimen Type Cap Fingerstick GLUCOSE - POINT OF CARE Collection Time: 09/18/22 7:32 AM Result Value Ref Range Glucose WB/POC 132 (H) 70 - 115 mg/dL Specimen Type Cap Fingerstick Microbiology: 09/08 SPUTUM CX Moderate Pseudomonas aeruginosa??Abnormal?? 09/18 Bld cx pending Imaging & Studies: 09/12 FINDINGS/IMPRESSION: ?? Tracheostomy tube tip overlies upper thoracic trachea. ?? Mild interval clearing of right basilar airspace opacification from prior exam dated 09/09/2022. The left lung is relatively clear. No pleural effusion or pneumothorax is noted. The cardiomediastinal silhouette is within normal limits given patient rotation. No acute osseous abnormality is noted. 09/07 IMPRESSION: ?? 1. No CT evidence of pulmonary embolism. ?? 2. Debris and secretions within the in right main bronchus with worsening collapse of the right lower and middle lobe. There is increasing left to right mediastinal shift. The right upper lobe appears partially collapsed. There is dense consolidation within all 3 lobes of the right lung which likely a combination of atelectasis and aspiration. There is a right-sided pleural effusion. 09/18/22 CXR - Pending ASSESSMENT & PLAN Sinus tachycardia Fever x1 100.5F 09/17/22 - Pt is high risk for aspiration PNA 2/2 dysphagia, low fluid intake, possibly dehydrated vs other cardiac etiology - Per chart review paroxysmal tachycardia has occurred in the past without known cause - Aspiration precautions - Low threshold for c diff if this becomes a concern. No diarrhea currently - WBC today pending, 6.7 yesterday - EKG showing sinus tachy - Trop, CXR, bld cx and CBC pending - 1L LR over 4 hour infusion (EF 58%) - Increased FWF to 200 ml Q4H Acute on chronic hypoxic respiratory failure MDRO Pneumonia (MRSA, pseudomonas) - resolved - s/p tracheostomy 06/2022 - MRSA and pseudomonas (Spx CX 09/09 +MRSA, +Pseudo; 09/11: +Pseudo, resistant to cefepime). Completed meropenem for 7 day course (09/10- 09/17) - Continue levalbuterol nebs, HTS, guafenesin, NaCl neb - Trach collar, RT following - Frequent suctioning, bronchial hygiene, trach care - Procal level negative 09/17 - Wean Oxygen to baseline of 6 L if able to tolerate ?? Staph capitis bacteremia - resolved Pseudomonas UTI - resolved - BCx 08/28/22: +Staph capitis. BCX 08/30 negative. - UA Cx 08/29/22: Pseudomonas aeruginosa - Completed 7 day treatment for UTI and bacteremia w/ negative cultures now - Meropenum EOT 09/17 ?? Seizure disorder - Continue home meds: Lacosamide 200 BID, keppra 2 g BID, clobazam 20 BID, depakote 500 ?? Hx CVA c/b L sided deficits - Continue home atorva 40mg daily - Speech therapy to re-evaluate for PMV when pt trach changed to one without cuff ?? HFpEF Hx of HTN - Echo 08/2022: G1DD on TTE - Not currently on home BP meds - Normotensive ?? 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 PVD s/p L AKA c/b nonhealing foot wound Stage 2 - Wound care following: - apply a Mepilex AG foam, secure with Kerlix, change q3 days and prn - off load right heel at all times with heel boot - routine turning and pressure ulcer prevention measures- apply a Mepilex AG foam, secure with Kerlix, change q3 days and prn - off load right heel at all times with heel boot - routine turning and pressure ulcer prevention measures as detailed in 09/14 note ?? Normocytic Anemia Thrombocytopenia - resolved - Likely JOSE G and AoCD - Trend CBC - Transfuse for Hb < 7, plt < 10 ?? Code: Full Diet: TF via PEG, strict NPO Electrolytes: Replete PRN PPx: Lovenox Access: PIV, PEG Dispo: Pending SNF referral responses. The above assessment and plan will be discussed with the attending. This note is not final until attested by attending physician. Garcia Olmstead MD Internal Medicine Resident [facility] 09/18/2022 7:45 AM Associated attestation - Saw Nguyễn MD - 09/18/2022 5:41 PM CDT I have seen and examined the patient with the resident and I agree with the findings and plan of care as documented by the resident. In addition: Sepsis, pneumonia, right lung opacification - CXR with total right lung opacification concerning for mucus plug versus lung collapse. Pulmonology consult to assist with management. Continue aggressive pulm hygiene. Resume meropenem. Problem List History of CVA (cerebrovascular accident) (POA: Yes) Paroxysmal tachycardia, unspecified (CMS/HCC) (POA: Yes) Febrile (POA: Unknown) Seizure (CMS/HCC) (POA: Yes) Sepsis without acute organ dysfunction (CMS/HCC) (POA: Yes) Protein calorie malnutrition (CMS/HCC) (POA: Yes) Pulmonary infiltrate (POA: Yes) Acute on chronic respiratory failure with hypoxia (CMS/HCC) (POA: Yes) Tachycardia (POA: Yes) Tachypnea (POA: Yes) SOB (shortness of breath) (POA: Yes) Date of Service: 09/18/2022 Saw Nguyễn MD * Renetta Eden RN - 09/18/2022 7:39 AM CDT Blood Cx Pause: Per Garcia Olmstead MD blood cx needed for fever overnight and patient at high risk for re-infection Shiloh Eden RN * Renetta Eden RN - 09/18/2022 7:37 AM CDT Problem: Impaired Gas Exchange Goal: Resp rate/effort will be within specified limits Outcome: Progressing Problem: Ineffective Airway Clearance Goal: Patent airway Outcome: Progressing Problem: Fall Risk Goal: Fall risk and fall related injury risk are minimized (interventions related to the fall risk can be found in the flowsheet documentation) Outcome: Progressing Problem: Nutrient: Inadequate protein-energy intake Goal: Total intake will meet estimated nutrient needs Outcome: Progressing Problem: Oxygenation/Respiratory Function Goal: Patent airway Outcome: Progressing Goal: Respiratory rate/effort will be within specified limits Outcome: Progressing Problem: Care of Tracheostomy Goal: Tracheostomy tube and site will be maintained Outcome: Progressing Problem: Potential for Infection Goal: Insertion site without signs/symptoms of infection Outcome: Progressing Problem: Knowledge Deficit Goal: Patient/Significant other demonstrates understanding of Tracheostomy Outcome: Progressing Problem: Communication/Dysarthria Goal: STG - Patient will tolerate PMV trials Outcome: Progressing Problem: Pain/Discomfort Goal: Patient exhibits reduced pain/discomfort as evidenced by pain scores Outcome: Progressing Goal: Patient uses pharmacological and non-pharmacological pain management strategies. Outcome: Progressing Goal: Patient verbalizes acceptable level of pain relief and ability to engage in desired activity. Outcome: Progressing Problem: Skin Integrity Goal: Skin integrity is maintained or improved Outcome: Progressing * Yudi Haider RN - 09/17/2022 11:53 PM CDT Problem: Fall Risk Goal: Fall risk and fall related injury risk are minimized (interventions related to the fall risk can be found in the flowsheet documentation) Outcome: Progressing Problem: Ineffective Airway Clearance Goal: Patent airway Outcome: Progressing Problem: Care of Tracheostomy Goal: Tracheostomy tube and site will be maintained Outcome: Progressing Problem: Knowledge Deficit Goal: Patient/Significant other demonstrates understanding of Tracheostomy Outcome: Progressing * Garcia Olmstead MD - 09/17/2022 4:07 PM CDT Family Notification Documentation Contact made: 09/17/2022 3:30 PM Person(s) contacted: Brother Method of communication: In-person Duration of discussion: 15 minutes Summary of discussion Spoke with brother at bedside. Updated about hospital course and pt treatments at this time. Answered all questions at bedside. * Garcia Olmstead MD - 09/17/2022 1:01 PM CDT [facility] INTERNAL MEDICINE PROGRESS NOTE Patient: Bi Tabor Sex: male Age: [age] year old Date of : 1960 Date of Admission: 08/28/2022 Date: 09/17/2022 LOS: 20 SUBJECTIVE Interval History: Tube feeds running at goal, pt tolerating, no residuals. Pt is able to speak after suctioning mouth, asking about his urination (jensen in place). Explained jensen use. Pt understands, also asking about his next steps. Discussed plan for the day. Pt stating he is doing okay, denies pain, SOB, OROPEZA, chest pain. RT encountered in room, asked about switching trach collar as balloon has not been utilized. Hospital Course: Mr. Tabor is a 62 M w/ Hx CVA w/ left sided residual deficits, seizure disorder, dementia, dysphagia w/ recurrent aspiration s/p PEG, zenker divertiuculum s/p diverticulectomy 2022, chronic hypoxic respiratory faiure s/p trach 06/2022, PVD s/p L AKA c/b nonhealing foot wound, HTN who presented to [facility] 08/28 with shortness of breath, tachypnea, and increased WOB d/t lack of suction instruments at SNF.On admission, no elevated WBC, afebrile but CXR w/ large R pleural effusion, R lung atelectasis, RULGGO. Patient was started on broad spectrum abx (vanc, cefe). BCX + staph capitis, SpCx + MRSA and pseudomonas. UCx + pseudomonas. TTE negative for vegetations. Hospital course c/b mucus plugging requiring bronch 09/08, recurrent pseudomonas PNA (repeat SpCx 09/09 + pseudomonas resistant to cefepime).Antibiotics switched to meropenem (09/10-09/17). Weaned off ventilation in ICU. Tolerated trach collar and transferred to the floor. On interview, patient is able to nod yes/no questions, is not able to speak. Denies fevers, chills, chest pain, cough, difficulty breathing, nausea at this time. Labs un remarkable, ABG pH 7.40, CO2 45 in the afternoon today. Recent CXR 2 days prior looks unchanged. Breathing well on 5L 30 O2. OBJECTIVE Vital Signs: Vitals: 09/16/22 2321 09/17/22 0327 09/17/22 0400 09/17/22 0838 BP: 125/91 117/68 Pulse: 88 105 98 Resp: 18 18 20 Temp: 98.2 ??F (36.8 ??C) 98.5 ??F (36.9 ??C) SpO2: 100% 100% 98% Weight: 61.5 kg (135 lb 8 oz) Height: Temp Min: 97.2 ??F (36.2 ??C) Max: 100.9 ??F (38.3 ??C), Pulse Min: 65 Max: 130, Resp Min: 8 Max: 100, BP Min: 85/63 Max: 161/83 Intake & Output: In: 1804 Out: 2450 [Urine:2450] Physical Exam: General: Alert and oriented to person, place, time and situation, no acute distress, sputum in oralcavity and larynx requiring suctioning Neck: No JVD or cartoid bruit. Trachea midline. Heart: RRR, Normal S1 and S2. No murmurs appreciated. Chest: Normal breath sounds, wheezes bilaterally,strong cough present, secretions requiring suction, trach collar Abdomen: Soft, non-tender, non-distended, bowel sounds present, PEG tube without surrounding erythema Extremities: L AKA, No lower extremity edema, 2+ distal peripheral pulses, Small stage 2 ulcer on heel, rewrapped wound. L arm weakness, movement of left arm 3/5 but 0/5 hand Neuro: No focal deficits noted Intake/Output Summary (Last 24 hours) at 09/17/2022 1301 Last data filed at 09/17/2022 0425 Gross per 24 hour Intake 1538 ml Output 1200 ml Net 338 ml Current Medications: Scheduled: ??? 0.9% NaCl 3 mL Intracatheter q8h ??? artificial tears Each Eye q8h ??? atorvastatin 40 mg Enteral Tube QDAY ??? chlorhexidine 15 mL Mouth/Throat BID ??? cloBAZam 20 mg Enteral Tube BID ??? divalproex sprinkle 500 mg Enteral Tube q6h ??? enoxaparin 40 mg Subcutaneous QDAY ??? guaiFENesin 10 mL Enteral Tube q6h ??? lacosamide 200 mg Enteral Tube BID ??? levalbuterol 1.25 mg Inhalation q12h ??? levETIRAcetam 2,000 mg Enteral Tube BID ??? polyethylene glycol 3350 17 g Enteral Tube BID ??? senna-docusate 1 tablet Enteral Tube BID ??? sodium chloride (Inhalant) 4 mL Inhalation BID Continuous: PRN: ??? SALINE LOCK, INSERT AND MAINTAIN AND 0.9% NaCl AND 0.9% NaCl ??? acetaminophen ??? dextrose IV for hypoglycemia OR dextrose IV for hypoglycemia ??? glucagon ??? glucose (Diabetic Use) ??? glucose (Diabetic Use) gel ??? glucose chew tab Significant Lab Results: Recent Results (from the past 24 hour(s)) GLUCOSE - POINT OF CARE Collection Time: 09/16/22 5:43 PM Result Value Ref Range Glucose WB/POC 121 (H) 70 - 115 mg/dL Specimen Type Cap Fingerstick GLUCOSE - POINT OF CARE Collection Time: 09/16/22 11:40 PM Result Value Ref Range Glucose WB/POC 117 (H) 70 - 115 mg/dL Specimen Type Cap Fingerstick CBC W AUTO DIFFERENTIAL Collection Time: 09/17/22 6:59 AM Result Value Ref Range WBC 6.7 3.5 - 10.5 10??3/uL RBC 3.50 (L) 4.30 - 5.70 10??6/uL Hemoglobin 10.9 (L) 12.0 - 17.6 g/dL Hematocrit 34.5 (L) 35.2 - 51.7 % MCV 98.6 (H) 80.7 - 98.3 fL MCH 31.1 26.7 - 34.0 pg MCHC 31.6 30.8 - 35.9 g/dL RDW-SD 51.1 (H) 36.0 - 50.0 fL RDW-CV 14.2 11.2 - 14.8 % Platelet Count 306 150 - 400 10??3/uL MPV 12.7 9.4 - 12.9 fL nRBC Absolute 0.00 0 10??3/uL nRBC Auto 0.0 0 /100 WBC Neutrophils % 47.0 35.0 - 70.0 % Lymphocytes % 35.7 20.0 - 43.0 % Monocytes % 9.7 5.0 - 13.0 % Eosinophils % 6.9 (H) 0.0 - 6.0 % Basophil % 0.6 0.0 - 2.0 % Neutrophils Absolute 3.13 1.60 - 7.00 10??3/uL Lymphocyte Absolute 2.38 1.10 - 3.90 10??3/uL Monocytes Absolute 0.65 0.26 - 1.07 10??3/uL Eosinophils Absolute 0.46 0.00 - 0.47 10??3/uL Basophils Absolute 0.04 0.00 - 0.08 10??3/uL Immature Granulocytes % 0.1 0.0 - 1.0 % Immature Granulocytes Absolute 0.01 BASIC METABOLIC PANEL (CALCIUM TOTAL) Collection Time: 09/17/22 6:59 AM Result Value Ref Range BUN 16 7 - 26 mg/dL Creatinine 0.40 (L) 0.71 - 1.16 mg/dL Sodium 136 136 - 145 mmol/L Potassium 4.1 3.5 - 4.5 mmol/L Chloride 102 98 - 107 mmol/L CO2 26 22 - 29 mmol/L Glucose 104 70 - 115 mg/dL Calcium 9.9 8.4 - 10.2 mg/dL Anion Gap 12 8 - 18 BUN/Creatinine Ratio 40 (H) 7 - 23 Osmolality Calculated 283 270 - 300 mOsm/kg eGFR by CKD-EPI >90 >=90 mL/min/1.73 m2 MAGNESIUM BLOOD Collection Time: 09/17/22 6:59 AM Result Value Ref Range Magnesium 1.6 1.6 - 2.6 mg/dL PHOSPHORUS BLOOD Collection Time: 09/17/22 6:59 AM Result Value Ref Range Phosphorus 2.8 2.8 - 5.1 mg/dL PROCALCITONIN LEVEL Collection Time: 09/17/22 6:59 AM Result Value Ref Range PROCALCITONIN <0.02 <=0.10 ng/mL GLUCOSE - POINT OF CARE Collection Time: 09/17/22 8:18 AM Result Value Ref Range Glucose WB/POC 111 70 - 115 mg/dL Specimen Type Cap Fingerstick GLUCOSE - POINT OF CARE Collection Time: 09/17/22 11:27 AM Result Value Ref Range Glucose WB/POC 153 (H) 70 - 115 mg/dL Specimen Type Cap Fingerstick Microbiology: 09/08 SPUTUM CX Moderate Pseudomonas aeruginosa??Abnormal?? Imaging & Studies: 09/12 FINDINGS/IMPRESSION: ?? Tracheostomy tube tip overlies upper thoracic trachea. ?? Mild interval clearing of right basilar airspace opacification from prior exam dated 09/09/2022. The left lung is relatively clear. No pleural effusion or pneumothorax is noted. The cardiomediastinal silhouette is within normal limits given patient rotation. No acute osseous abnormality is noted. 09/07 IMPRESSION: ?? 1. No CT evidence of pulmonary embolism. ?? 2. Debris and secretions within the in right main bronchus with worsening collapse of the right lower and middle lobe. There is increasing left to right mediastinal shift. The right upper lobe appears partially collapsed. There is dense consolidation within all 3 lobes of the right lung which likely a combination of atelectasis and aspiration. There is a right-sided pleural effusion. ASSESSMENT & PLAN Acute on chronic hypoxic respiratory failure MDRO Pneumonia (MRSA, pseudomonas) - s/p tracheostomy 06/2022 - MRSA and pseudomonas (Spx CX 09/09 +MRSA, +Pseudo; 09/11: +Pseudo, resistant to cefepime) - Previously on Vanc and Cefe, now on Marycarmen - Continue meropenem for 7 day course (EOT 09/10- 09/17) - Continue levalbuterol nebs, HTS, guafenesin, NaCl neb scheduled - Trach collar, RT following for cuff deflation when pt able - Frequent suctioning, bronchial hygiene, trach care - Procal level negative, can keep abx EOT today ?? Staph capitis bacteremia - resolved Pseudomonas UTI - resolved - BCx 08/28/22: +Staph capitis. BCX 08/30 negative. - UA Cx 08/29/22: Pseudomonas aeruginosa - Completed 7 day treatment for UTI and bacteremia w/ negative cultures now - Meropenum EOT 09/17 ?? Seizure disorder -Continue home meds: Lacosamide 200 BID, keppra 2 g BID, clobazam 20 BID, depakote 500 ?? Hx CVA c/b L sided deficits - Continue home atorva 40mg daily - Speech therapy to re-evaluate for PMV when pt able to tolerate cuff deflation per RT ?? HFpEF Hx of HTN - Echo 08/2022: G1DD on TTE - Not currently on home BP meds - Normotensive - CTM ?? 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 PVD s/p L AKA c/b nonhealing foot wound Stage 2 - Wound care following: - apply a Mepilex AG foam, secure with Kerlix, change q3 days and prn - off load right heel at all times with heel boot - routine turning and pressure ulcer prevention measures- apply a Mepilex AG foam, secure with Kerlix, change q3 days and prn - off load right heel at all times with heel boot - routine turning and pressure ulcer prevention measures as detailed in 09/14 note ?? Normocytic Anemia Thrombocytopenia - resolved - Likely JOSE G and AoCD - Trend CBC - Transfuse for Hb < 7, plt < 10 ?? Code: Full Diet: TF via PEG, strict NPO Electrolytes: Replete PRN PPx: Lovenox Access: PIV, PEG Dispo: Pending SNF referral responses. The above assessment and plan will be discussed with the attending. This note is not final until attested by attending physician. Garcia Olmstead MD Internal Medicine Resident [facility] 09/17/2022 1:01 PM Associated attestation - Cory Cali MD - 09/17/2022 2:14 PM CDT I have verified the documentation of the resident including all history, exam, and medical decision-making details. I have personally performed a physical exam and have personally reviewed the data to support my medical decision-making as outlined in their note. I agree with their assessment and plan other than any corrections/additions as documented below. Corrections/Additions: - None Date of Service: 09/17/2022 Cory Cali MD * Iggy Rodriguez - 09/17/2022 11:33 AM CDT Tuesday Summary Note Discharge Level of Care: LTC Discharge Destination: [facility] Insurance Auth: n/a Anticipated Mode of Transportation: ALS Contacts (Name, relationship, phone #): sister Forrest, Anticipated DC Date: 09/21/22 Pending Needs: medical stability, decreased suctioning requirement, appropriate staffing at facility Comments: ASHWIN spoke with Daina in admissions at [facility] ([phone]). SW explained that Pt hasbeen weaned down to 6L 28% through trach but is requiring suctioning 3x per shift. Daina informed SW that their DON and TERRAPIN FISHER are both out with COVID , so they do not have the staffing to meet Pt's needs at least until they return on 09/21. She asked that SW call back on 09/21, once they are expectedto be fully staffed again, to discuss possible d/c. SW will continue to follow. CLARITA Turcios Phone [phone] 09/17/2022 * eDbi Harris RN - 09/17/2022 9:52 AM CDT Problem: Pain/Discomfort Goal: Patient exhibits reduced pain/discomfort as evidenced by pain scores Outcome: Progressing Goal: Patient uses pharmacological and non-pharmacological pain management strategies. Outcome: Progressing Goal: Patient verbalizes acceptable level of pain relief and ability to engage in desired activity. Outcome: Progressing * Delilah Son RN - 09/16/2022 5:47 PM CDT Problem: Impaired Gas Exchange Goal: Resp rate/effort will be within specified limits 09/16/20221745 by Delilah Son, RN Outcome: Progressing 09/16/20221745 by Delilah Son RN Outcome: Progressing Problem: Ineffective Airway Clearance Goal: Patent airway 09/16/2022 174 by Delilah Son RN Outcome: Progressing 09/16/2022 174 by Delilah Son RN Outcome: Progressing Problem: Fall Risk Goal: Fall risk and fall related injury risk are minimized (interventions related to the fall risk can be found in the flowsheet documentation) 09/16/2022 174 by Delilah Son RN Outcome: Progressing 09/16/2022 174 by Delilah Son RN Outcome: Progressing Problem: Nutrient: Inadequate protein-energy intake Goal: Total intake will meet estimated nutrient needs 09/16/20221745 by Delilah Son RN Outcome: Progressing 09/16/20221745 by Delilah Son RN Outcome: Progressing Problem: Oxygenation/Respiratory Function Goal: Patent airway 09/16/2022 174 by Delilah Son RN Outcome: Progressing 09/16/2022 174 by Delilah Son RN Outcome: Progressing Goal: Respiratory rate/effort will be within specified limits 09/16/20221745 by Delilah Son RN Outcome: Progressing 09/16/2022 174 by Delilah Son RN Outcome: Progressing Problem: Care of Tracheostomy Goal: Tracheostomy tube and site will be maintained 09/16/20221745 by Delilah Son RN Outcome: Progressing 09/16/2022 174 by Delilah Son RN Outcome: Progressing Problem: Potential for Infection Goal: Insertion site without signs/symptoms of infection 09/16/2022 174 by Delilah Son RN Outcome: Progressing 09/16/2022 174 by Delilah Son RN Outcome: Progressing Problem: Knowledge Deficit Goal: Patient/Significant other demonstrates understanding of Tracheostomy 09/16/20221745 by Delilah Son RN Outcome: Progressing 09/16/20221745 by Delilah Son RN Outcome: Progressing Problem: Communication/Dysarthria Goal: STG - Patient will tolerate PMV trials 09/16/20221745 by Delilah Son RN Outcome: Progressing 09/16/2022 174 by Delilah Son RN Outcome: Progressing Problem: Pain/Discomfort Goal: Patient exhibits reduced pain/discomfort as evidenced by pain scores 09/16/20221745 by Delilah Son RN Outcome: Progressing 09/16/20221745 by Delilah Son RN Outcome: Progressing Goal: Patient uses pharmacological and non-pharmacological pain management strategies. 09/16/2022 174 by Delilah Son RN Outcome: Progressing 09/16/20221745 by Delilah Son RN Outcome: Progressing Goal: Patient verbalizes acceptable level of pain relief and ability to engage in desired activity. 09/16/20221745 by Delilah Son RN Outcome: Progressing 09/16/20221745 by Delilah Son RN Outcome: Progressing Problem: Skin Integrity Goal: Skin integrity is maintained or improved 09/16/20221745 by Delilah Son RN Outcome: Progressing 09/16/20221745 by Delilah Son RN Outcome: Progressing * Delilah Son RN - 09/16/2022 5:46 PM CDT Problem: Impaired Gas Exchange Goal: Resp rate/effort will be within specified limits Outcome: Progressing Problem: Ineffective Airway Clearance Goal: Patent airway Outcome: Progressing Problem: Fall Risk Goal: Fall risk and fall related injury risk are minimized (interventions related to the fall risk can be found in the flowsheet documentation) Outcome: Progressing Problem: Nutrient: Inadequate protein-energy intake Goal: Total intake will meet estimated nutrient needs Outcome: Progressing Problem: Oxygenation/Respiratory Function Goal: Patent airway Outcome: Progressing Goal: Respiratory rate/effort will be within specified limits Outcome: Progressing Problem: Care of Tracheostomy Goal: Tracheostomy tube and site will be maintained Outcome: Progressing Problem: Potential for Infection Goal: Insertion site without signs/symptoms of infection Outcome: Progressing Problem: Knowledge Deficit Goal: Patient/Significant other demonstrates understanding of Tracheostomy Outcome: Progressing Problem: Communication/Dysarthria Goal: STG - Patient will tolerate PMV trials Outcome: Progressing Problem: Pain/Discomfort Goal: Patient exhibits reduced pain/discomfort as evidenced by pain scores Outcome: Progressing Goal: Patient uses pharmacological and non-pharmacological pain management strategies. Outcome: Progressing Goal: Patient verbalizes acceptable level of pain relief and ability to engage in desired activity. Outcome: Progressing Problem: Skin Integrity Goal: Skin integrity is maintained or improved Outcome: Progressing * Iggy Rodriguez - 09/16/2022 3:36 PM CDT SW left a voicemail for DON at [facility], requesting a return call, regarding d/c plan. Pt is now on baseline O2 requirement through trach but is still requiring suctioning 3x per shift. SW continues to follow. CALRITA Carson [phone] * Marcella Calderon SLP - 09/16/2022 9:40 AM CDT [facility] Department of Physical Medicine & Rehabilitation Progress Note Patient: Bi Tabor Med Record Number: [id number] Date of : 1960 Age: [age] year old REPORTING COORDINATOR consult for PMV evaluation received and acknowledged. Upon entering the room, Pt with noted bivona tracheostomy with cuff inflated with saline at baseline. REPORTING COORDINATOR reached out to RT to inquire about Pt's candidacy for cuff deflation given this is required prior to attempting PMV trials. Per discussion with RT, Pt is not yet medically appropriate for cuff deflation given his copious amount of secretions. Given cuff of Pt's tracheostomy needs to remain inflated at this time, REPORTING COORDINATOR will complete order for PMV assessment and request medical team reconsult if/when Pt is able to tolerate cuff deflation. Marcella Scherer M.S., [facility]-REPORTING COORDINATOR Speech Language Pathologist [phone] * Clover Crowley RN - 09/16/2022 9:19 AM CDT Case Management Progress Note Anticipated level of care at discharge: Custodial - Medicaid Patient is on trach collar 6L at 50% FiO2. Has peg tube, on IV abx. [facility] is unable to accept patient. SW following for placement. Basic Needs Assessment (BNA) Score: n/a Anticipated Discharge Date: 09/21/22 Transportation at Discharge: Ambulance Transportation to MD: Equipment at Home: Equipment at Home: Facility Equipment Additional DME needed: Name: Clover Crowley RN Case Manager [phone] * Garcia Olmstead MD - 09/16/2022 6:50 AM CDT [facility] INTERNAL MEDICINE PROGRESS NOTE Patient: Bi Tabor Sex: male Age: [age] year old Date of : 1960 Date of Admission: 08/28/2022 Date: 09/16/2022 LOS: 19 SUBJECTIVE Interval History: Tube feeds were held at [place] d/t malfunctioning per RN, tried to replace parts of the tube without success. Pepsi and change of connector solved the problem, flow is patent through PEG tube. Patient endorses pain in right foot. Limited communication but did mouth words/make enough sound to express needs. Hospital Course: Mr. Tabor is a 62 M w/ Hx CVA w/ left sided residual deficits, seizure disorder, dementia, dysphagia w/ recurrent aspiration s/p PEG, zenker divertiuculum s/p diverticulectomy 2022, chronic hypoxic respiratory faiure s/p trach 06/2022, PVD s/p L AKA c/b nonhealing foot wound, HTN who presented to [facility] 08/28 with shortness of breath, tachypnea, and increased WOB d/t lack of suction instruments at SNF.On admission, no elevated WBC, afebrile but CXR w/ large R pleural effusion, R lung atelectasis, RULGGO. Patient was started on broad spectrum abx (vanc, cefe). BCX + staph capitis, SpCx + MRSA and pseudomonas. UCx + pseudomonas. TTE negative for vegetations. Hospital course c/b mucus plugging requiring bronch 09/08, recurrent pseudomonas PNA (repeat SpCx 09/09 + pseudomonas resistant to cefepime).Antibiotics switched to meropenem (09/10-09/17). Weaned off ventilation in ICU. Tolerated trach collar and transferred to the floor. On interview, patient is able to nod yes/no questions, is not able to speak. Denies fevers, chills, chest pain, cough, difficulty breathing, nausea at this time. Labs un remarkable, ABG pH 7.40, CO2 45 in the afternoon today. Recent CXR 2 days prior looks unchanged. Breathing well on 5L 30 O2. OBJECTIVE Vital Signs: Vitals: 09/15/22 2040 09/15/22 2334 09/16/22 0337 09/16/22 0500 BP: 133/94 142/83 Pulse: 95 90 80 Resp: 18 18 18 Temp: 97.9 ??F (36.6 ??C) 97.4 ??F (36.3 ??C) SpO2: 100% 100% 100% 100% Weight: Height: Temp Min: 97.2 ??F (36.2 ??C) Max: 100.9 ??F (38.3 ??C), Pulse Min: 65 Max: 130, Resp Min: 8 Max: 100, BP Min: 85/63 Max: 161/83 Intake & Output: In: 659 Out: 3480 [Urine:3480] Physical Exam: General: Alert and oriented to person, place, time and situation, no acute distress Neck: No JVD or cartoid bruit. Trachea midline. Heart: RRR, Normal S1 and S2. No murmurs appreciated. Chest: Normal breath sounds, wheezes bilaterally,strong cough present, secretions requiring suction, trach collar Abdomen: Soft, non-tender, non-distended, bowel sounds present, PEG tube without surrounding erythema Extremities: L AKA, No lower extremity edema, 2+ distal peripheral pulses, Small stage 2 ulcer on heel, rewrapped wound. L arm weakness, movement of left arm 3/5 but 0/5 hand Neuro: No focal deficits noted Intake/Output Summary (Last 24 hours) at 09/16/2022 06 Last data filed at 09/16/2022 0634 Gross per 24 hour Intake 216 ml Output 2450 ml Net -2234 ml Current Medications: Scheduled: ??? 0.9% NaCl 3 mL Intracatheter q8h ??? artificial tears Each Eye q8h ??? atorvastatin 40 mg Enteral Tube QDAY ??? chlorhexidine 15 mL Mouth/Throat BID ??? cloBAZam 20 mg Enteral Tube BID ??? divalproex sprinkle 500 mg Enteral Tube q6h ??? enoxaparin 40 mg Subcutaneous QDAY ??? guaiFENesin 10 mL Enteral Tube q6h ??? lacosamide 200 mg Enteral Tube BID ??? levalbuterol 1.25 mg Inhalation q12h ??? levETIRAcetam 2,000 mg Enteral Tube BID ??? meropenem 1,000 mg Intravenous q8h ??? polyethylene glycol 3350 17 g Enteral Tube BID ??? senna-docusate 1 tablet Enteral Tube BID ??? sodium chloride (Inhalant) 4 mL Inhalation BID Continuous: PRN: ??? SALINE LOCK, INSERT AND MAINTAIN AND 0.9% NaCl AND 0.9% NaCl ??? dextrose IV for hypoglycemia OR dextrose IV for hypoglycemia ??? glucagon ??? glucose (Diabetic Use) ??? glucose (Diabetic Use) gel ??? glucose chew tab Significant Lab Results: Recent Results (from the past 24 hour(s)) CBC W AUTO DIFFERENTIAL Collection Time: 09/15/22 8:08 AM Result Value Ref Range WBC 6.6 3.5 - 10.5 10??3/uL RBC 3.20 (L) 4.30 - 5.70 10??6/uL Hemoglobin 10.5 (L) 12.0 - 17.6 g/dL Hematocrit 32.0 (L) 35.2 - 51.7 % MCV 100.0 (H) 80.7 - 98.3 fL MCH 32.8 26.7 - 34.0 pg MCHC 32.8 30.8 - 35.9 g/dL RDW-SD 52.2 (H) 36.0 - 50.0 fL RDW-CV 14.2 11.2 - 14.8 % Platelet Count 296 150 - 400 10??3/uL MPV 13.0 (H) 9.4 - 12.9 fL nRBC Absolute 0.00 0 10??3/uL nRBC Auto 0.0 0 /100 WBC Neutrophils % 51.7 35.0 - 70.0 % Lymphocytes % 30.2 20.0 - 43.0 % Monocytes % 12.2 5.0 - 13.0 % Eosinophils % 5.2 0.0 - 6.0 % Basophil % 0.5 0.0 - 2.0 % Neutrophils Absolute 3.41 1.60 - 7.00 10??3/uL Lymphocyte Absolute 1.99 1.10 - 3.90 10??3/uL Monocytes Absolute 0.80 0.26 - 1.07 10??3/uL Eosinophils Absolute 0.34 0.00 - 0.47 10??3/uL Basophils Absolute 0.03 0.00 - 0.08 10??3/uL Immature Granulocytes % 0.2 0.0 - 1.0 % Immature Granulocytes Absolute 0.01 BASIC METABOLIC PANEL (CALCIUM TOTAL) Collection Time: 09/15/22 8:08 AM Result Value Ref Range BUN 14 7 - 26 mg/dL Creatinine 0.36 (L) 0.71 - 1.16 mg/dL Sodium 138 136 - 145 mmol/L Potassium 4.5 3.5 - 4.5 mmol/L Chloride 105 98 - 107 mmol/L CO2 27 22 - 29 mmol/L Glucose 81 70 - 115 mg/dL Calcium 9.9 8.4 - 10.2 mg/dL Anion Gap 11 8 - 18 BUN/Creatinine Ratio 39 (H) 7 - 23 Osmolality Calculated 286 270 - 300 mOsm/kg eGFR by CKD-EPI >90 >=90 mL/min/1.73 m2 MAGNESIUM BLOOD Collection Time: 09/15/22 8:08 AM Result Value Ref Range Magnesium 1.7 1.6 - 2.6 mg/dL PHOSPHORUS BLOOD Collection Time: 09/15/22 8:08 AM Result Value Ref Range Phosphorus 3.2 2.8 - 5.1 mg/dL GLUCOSE - POINT OF CARE Collection Time: 09/15/22 12:13 PM Result Value Ref Range Glucose WB/POC 118 (H) 70 - 115 mg/dL Specimen Type Cap Fingerstick GLUCOSE - POINT OF CARE Collection Time: 09/15/22 5:44 PM Result Value Ref Range Glucose WB/POC 115 70 - 115 mg/dL Specimen Type Cap Fingerstick GLUCOSE - POINT OF CARE Collection Time: 09/16/22 12:06 AM Result Value Ref Range Glucose WB/POC 105 70 - 115 mg/dL Specimen Type Cap Fingerstick CBC W AUTO DIFFERENTIAL Collection Time: 09/16/22 6:28 AM Result Value Ref Range WBC 6.0 3.5 - 10.5 10??3/uL RBC 3.57 (L) 4.30 - 5.70 10??6/uL Hemoglobin 11.5 (L) 12.0 - 17.6 g/dL Hematocrit 35.3 35.2 - 51.7 % MCV 98.9 (H) 80.7 - 98.3 fL MCH 32.2 26.7 - 34.0 pg MCHC 32.6 30.8 - 35.9 g/dL RDW-SD 51.2 (H) 36.0 - 50.0 fL RDW-CV 14.0 11.2 - 14.8 % Platelet Count 285 150 - 400 10??3/uL MPV 12.3 9.4 - 12.9 fL nRBC Absolute 0.00 0 10??3/uL nRBC Auto 0.0 0 /100 WBC Neutrophils % 48.2 35.0 - 70.0 % Lymphocytes % 34.5 20.0 - 43.0 % Monocytes % 10.3 5.0 - 13.0 % Eosinophils % 6.1 (H) 0.0 - 6.0 % Basophil % 0.7 0.0 - 2.0 % Neutrophils Absolute 2.91 1.60 - 7.00 10??3/uL Lymphocyte Absolute 2.08 1.10 - 3.90 10??3/uL Monocytes Absolute 0.62 0.26 - 1.07 10??3/uL Eosinophils Absolute 0.37 0.00 - 0.47 10??3/uL Basophils Absolute 0.04 0.00 - 0.08 10??3/uL Immature Granulocytes % 0.2 0.0 - 1.0 % Immature Granulocytes Absolute 0.01 Microbiology: 09/08 SPUTUM CX Moderate Pseudomonas aeruginosa??Abnormal?? Imaging & Studies: 09/12 FINDINGS/IMPRESSION: ?? Tracheostomy tube tip overlies upper thoracic trachea. ?? Mild interval clearing of right basilar airspace opacification from prior exam dated 09/09/2022. The left lung is relatively clear. No pleural effusion or pneumothorax is noted. The cardiomediastinal silhouette is within normal limits given patient rotation. No acute osseous abnormality is noted. 09/07 IMPRESSION: ?? 1. No CT evidence of pulmonary embolism. ?? 2. Debris and secretions within the in right main bronchus with worsening collapse of the right lower and middle lobe. There is increasing left to right mediastinal shift. The right upper lobe appears partially collapsed. There is dense consolidation within all 3 lobes of the right lung which likely a combination of atelectasis and aspiration. There is a right-sided pleural effusion. ASSESSMENT & PLAN Acute on chronic hypoxic respiratory failure MDRO Pneumonia (MRSA, pseudomonas) - s/p tracheostomy 06/2022 - MRSA and pseudomonas (Spx CX 09/09 +MRSA, +Pseudo; 09/11: +Pseudo, resistant to cefepime) - Previously on Vanc and Cefe, now on Marycarmen - Continue meropenem for 7 day course (EOT 09/10- 09/17) - Continue levalbuterol nebs, HTS, guafenesin, NaCl neb scheduled - Trach collar, RT following for cuff deflation when pt able - Frequent suctioning, bronchial hygiene, trach care - Procal level to guide abx therapy if elevated ?? Staph capitis bacteremia - resolved Pseudomonas UTI - resolved - BCx 08/28/22: +Staph capitis. BCX 08/30 negative. - UA Cx 08/29/22: Pseudomonas aeruginosa - Completed 7 day treatment for UTI and bacteremia w/ negative cultures now - Meropenum EOT 09/17 ?? Seizure disorder -Continue home meds: Lacosamide 200 BID, keppra 2 g BID, clobazam 20 BID, depakote 500 ?? Hx CVA c/b L sided deficits - Continue home atorva 40mg daily - Speech therapy to re-evaluate for PMV when pt able to tolerate cuff deflation per RT ?? HFpEF Hx of HTN - Echo 08/2022: G1DD on TTE - Not currently on home BP meds - Normotensive - CTM ?? 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 PVD s/p L AKA c/b nonhealing foot wound Stage 2 - Wound care following: - apply a Mepilex AG foam, secure with Kerlix, change q3 days and prn - off load right heel at all times with heel boot - routine turning and pressure ulcer prevention measures- apply a Mepilex AG foam, secure with Kerlix, change q3 days and prn - off load right heel at all times with heel boot - routine turning and pressure ulcer prevention measures as detailed in 09/14 note ?? Normocytic Anemia Thrombocytopenia - resolved - Likely JOSE G and AoCD - Trend CBC - Transfuse for Hb < 7, plt < 10 ?? Code: Full Diet: TF via PEG, strict NPO Electrolytes: Replete PRN PPx: Lovenox Access: PIV Dispo: Pending SNF referral responses. The above assessment and plan will be discussed with the attending. This note is not final until attested by attending physician. Garcia Olmstead MD Internal Medicine Resident [facility] 09/16/2022 6:52 AM Associated attestation - Cory Cali MD - 09/17/2022 6:47 AM CDT I have verified the documentation of the resident including all history, exam, and medical decision-making details. I have personally performed a physical exam and have personally reviewed the data to support my medical decision-making as outlined in their note. I agree with their assessment and plan other than any corrections/additions as documented below. Corrections/Additions: - Patient remains hospitalized for ongoing treatment of Severe Sepsis with Acute on Chronic HypoxicRespiratory Failure secondary to Ventilator Associated Multidrug resistant Pseudomonas Pneumonia. Continuing meropenem. - I also note right heel ulcer, stage III and present on arrival that appears to have appropriate wound care measures in place at time of my exam today. Wound did not appear grossly infected and did appear to be healing appropriately. Date of Service: 09/16/2022 Cory Cali MD * Tenzin Diaz RN - 09/16/2022 3:22 AM CDT Problem: Impaired Gas Exchange Goal: Resp rate/effort will be within specified limits Outcome: Progressing Problem: Ineffective Airway Clearance Goal: Patent airway 09/16/2022 0322 by Tenzin Diaz RN Outcome: Progressing 09/16/2022 0320 by Tenzin Diaz RN Outcome: Progressing * Tenzin Diaz RN - 09/16/2022 3:20 AM CDT Problem: Impaired Gas Exchange Goal: Resp rate/effort will be within specified limits Outcome: Progressing * Iggy Rodriguez - 09/15/2022 3:01 PM CDT SW sent updates to Pt's previous SNF, [facility], now that he has transferred outof the ICU and is on 5L at 30%. Per CM from [facility], Pt is still requiring frequent suctioning. [facility] is unable to accept Pt, as he has been weaned down to his baseline O2 requirement. SW had made an additional SNF referral to [facility], while Pt was in the ICU, as they are well equipped tomeet the needs of trach Pt's, but they have also denied. SW will follow. Iggy Rodriguez, WEB MARKETING SPECIALIST [phone] * Garcia Olmstead MD - 09/15/2022 8:13 AM CDT Internal Medicine Plan of Care In addition to H&P note and plan for the day, we re-consulted speech therapy now that pt is on trach collar and transferred to the floor. Will continue PEG feeding until safe to advance oral and transition if possible. * Hansa Medina RN - 09/15/2022 1:48 AM CDT Problem: Impaired Gas Exchange Goal: Resp rate/effort will be within specified limits Outcome: Progressing Problem: Ineffective Airway Clearance Goal: Patent airway Outcome: Progressing * Aman Horton RN - 09/14/2022 10:30 AM CDT Images from the original note were not included. WOUND OSTOMY NURSE CONSULT NOTE Bi Tabor is an 62 year old malewho has Stage III pressure ulcer(s). This consultation was requested by Tri SIMON. History Social History Substance and Sexual Activity Alcohol Use No Comment: last drink 2015 Social History Tobacco Use Smoking Status Former ??? Packs/day: 1.00 ??? Years: 15.00 ??? Pack years: 15.00 ??? Types: Cigarettes Smokeless Tobacco Never Past Medical History: Diagnosis Date ??? CVA (cerebral vascular accident) (CMS/HCC) ??? HTN (hypertension) ??? Seizure (CMS/HCC) Past Surgical History: Procedure Laterality Date ??? ENDOSCOPY, UPPER N/A 03/25/2022 N/A; ESOPHAGOGASTRODUODENOSCOPY (EGD) DIAGNOSTIC with PEG Placement ??? ENT SURGERY N/A 07/15/2022 N/A; TRANSCERVICAL ZENKERS DIVERTICULECTOMY, OPEN TRACHEOSTOMY ??? Leg Amputation, Below Knee Left 03/15/2022 Left; LEFT BKA POSS AKA Medications/Allergies Allergies Allergen Reactions ??? Clonazepam Psychiatric hallucinations Medications Prior to Admission Medication Sig Dispense Refill ??? acetaminophen (Tylenol) 500 MG tablet 1 (one) tablet by Enteral Tube route every 6 hours as needed Maximum allowable Acetaminophen amount = 4 Grams (4000 mg) / 24 hours. ??? artificial tears ophthalmic solution Instill 1 (one) drop into both eyes 3 times daily as needed ??? atorvastatin (Lipitor) 40 MG tablet 1 (one) tablet by Enteral Tube route once daily ??? carboxymethylcellulose sodium (Refresh;Celluvisc) 1 % ophthalmic solution 1 (one) drop by Ophthalmic route once daily as needed ??? cloBAZam (Onfi) 20 MG tablet 1 (one) tablet by Enteral Tube route 2 times daily ??? docusate sodium (Colace) 150 MG/15ML solution Take 15 mL by mouth as needed ??? fluticasone propionate (Flonase) 50 MCG/ACT nasal spray [place] 1 (one) spray into each nostril as needed ??? folic acid (Folvite) 1 MG tablet 1 (one) tablet by Enteral Tube route once daily ??? lacosamide (Vimpat) 200 MG tablet 1 (one) tablet by Enteral Tube route 2 times daily ??? levETIRAcetam (Keppra) 1000 MG tablet 2 (two) tablets by Enteral Tube route 2 times daily ??? loratadine (Claritin) 10 MG tablet Take 1 (one) tablet by mouth once daily ??? midazolam (Nayzilam) 5 MG/0.1ML nasal spray [place] 0.1 mL into the nose as needed for Seizures 1Each 5 ??? oxybutynin (Ditropan) 5 MG tablet 1 (one) tablet by Enteral Tube route 2 times daily 30 tablet 0 ??? tamsulosin (Flomax) 0.4 MG capsule Take 1 (one) capsule by mouth once daily At the same time every day after a meal. Please make sure it is via enteral tube. ??? thiamine (Vitamin B-1) 100 MG tablet 1 (one) tablet by Enteral Tube route once daily Data Review: Chemistry: Lab results smartLinks are not currently available CBC: Lab results smartLinks are not currently available Assessment Vitals: 09/14/22 0800 09/14/22 0839 09/14/22 0900 09/14/22 1000 BP: 120/72 131/78 130/73 Pulse: 79 87 95 95 Resp: 21 20 23 20 Temp: 97.7 ??F (36.5 ??C) SpO2: 100% 100% 98% 98% Weight: Height: Pain Assessment Pain Location #1 Pain Scale/Observation: Behaviors Pain Rating Score #1: 0 Sedation Level #1: 1-Awake and alert Goal Numeric Pain Scale: 0 Functional Goal: Turn in bed;Participate in ADLs;Participate in therapies;Ability to adequately rest Functional Goal Met?: Yes Pain Intervention(s): Non-pharmacological Non-pharmacological interventions: Rest Behaviors/Assumed Pain Present : Asleep/Resting with eyes closed Giuseppe Score Giuseppe Scale - Adult Sensory Perception: Very Limited Moisture: Occasionally Moist Activity: Bedfast Mobility: Very Limited Nutrition: Adequate Friction and Shear: Potential Problem Total Score: 13 Patient was seen per nursing request for right heel wound . He has extensive history as seen aboveand his right foot and heel were assessed by me today. Upon chart review it was noted that the patient was admitted with a POA right heel evolving DTI, photographed in the ED: Today the wound has evolved and declared itself as a stage 3 pressure injury, POA 1 x 2.5 x 0.1 cm pearly pink with serosanguinous drainage.: Unable to see LDA documentation for the last 2 weeks, unclear of wound care plan. Recommendations: - clean right heel with NS, dry well, - apply a Mepilex AG foam, secure with Kerlix, change q3 days and prn - off load right heel at all times with heel boot - routine turning and pressure ulcer prevention measures: - Frequent turns - Recommend low air loss mattress - Use pillows or positioning wedge (avoid positioning directly on trochanter when using side lying position) - Keep HOB below 30 degrees when medically feasible - Reduce Friction/Shear - Lift patient in bed with sheet or pad. DO NOT PULL OR DRAG - Single layer flat sheet for turning/microturns - Large sacral Mepilex prevention dressing for patients with contained/managed incontinence, changeq 3 days and prn - Moisture/incontinence protection - dry skin well, apply protective barrier cream/ointment bid andprn Re consult with any new needs. Aman Horton RN * Melany Tran RD/NOLAN - 09/14/2022 10:19 AM CDT Initial Nutrition Assessment Brief Synopsis: Patient is at Nutrition Risk; Specific criteria can be found in assessment below Nutrition Plan: NPO Continue below via PEG: Jevity 1.5 at 65 ml/hr+1 prostat packet Provides 2440 kcal, 114 g protein, 346 g carbohydrate, 1186 ml free water. +50 ml q 6 hrs free water flush or per MD if on IVF +100 ml q4 hrs free water flush or per MD if not on additional fluids Recommendations to Physician: Continue above Comments: Pt scheduled for reassessment. Pt receiving TF at goal rate above. Weight continues to vary between RD encounters, RD suspects actual body weight to be 132-138#. Unable to obtain orientation to discuss weight hx. Tolerating trach collar, pt to potentially transfer to the floor. Last BM 09/12, no other GI complications noted. RD to follow. 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 Height: 182.9 cm (6') Weight: 60 kg (132 lb 3.2 oz) BMI: Body mass index is 17.93 kg/m??. BMI Range: Underweight IBW/lb (Calculated) Male: 178 , Recent Weights/Methods 08/29/2022 0529 09/04/2022 0357 09/05/2022 0500 09/08/2022 0500 09/11/2022 0000 09/12/2022 0400 09/13/2022 0200 09/14/2022 0352 Weight: 62 kg (136 lb 9.6 oz) 61.2 kg (135 lb) 56 kg (123 lb 6.4 oz) 55 kg (121 lb 3.2 oz) 63 kg (138 lb 12.8 oz) 65.5 kg (144 lb 6.4 oz) 65.3 kg (144 lb) 60 kg (132 lb 3.2 oz) Weight Method (Utilize Scales): Bedscale Bedscale Bedscale Bedscale Bedscale Bedscale Bedscale Bedscale Wt Comments: reviewed, weight continues to vary, RD suspects actual body weight to be closer to 60kg Diet order accuracy Current diet order: NPO Current tube feeding order: Jevity 1.5 @65ml/hr+1 prostat packet Nutrition recommendation: agree with current nutrition order P.O.Intake for the past 48 hrs: No data recorded Food Allergies: No known food allergies GI Concerns: None Chewing/Swallowing: Dysphagia Pain affecting intake: No Estimated Needs: KCAL: 3710-5817 (35-40kcal/kg of ABW) Protein (g): 93-109 (20% of estimated needs) Fluid (ml): 1 ml/kcal Needs based on: Kcal/kg- (Comment) Recommended Access Route: TF Laboratory values: Recent Labs Component Name 09/14/22 0059 09/13/22 0443 09/12/22 0443 08/30/22 0039 08/28/22 2224 08/28/22 1251 07/01/22 1634 06/30/22 1039 BUN 14 16 15 - 11 12 - 7 CREATININE 0.41* 0.40* 0.39* - 0.50* 0.51* - 0.58* NA 141 138 140 - 142 139 - 140 POTASSIUM 4.2 4.4 4.0 - 3.9 4.5 - 4.0 CL 106 105 106 - 111* 103 - 107 CO2 30* 28 28 - 24 27 - 24 GLUCOSE 113 89 87 - 86 100 - 115 CALCIUM 10.1 9.6 9.3 - 8.8 9.8 - 9.5 PROT - - - - 6.0 7.5 - 6.2 ALB - - - - 2.0* 2.5* - 2.2* TBILI - - - - 0.6 0.5 - 0.3 ALKPHOS - - - - 67 88 - 65 ALT - - - - 5 6 - 5 AST - - - - 13 14 - 13 ANIONGAP 9 9 10 - 11 14 - 13 BCR 34* 40* 38* - 22 24* - 12 OSMOLALITY 293 287 290 - 293 288 - 289 AGRATIO - - - - 0.5* 0.5* - 0.6* EGFR >90 >90 >90 - >90 >90 - >90 - = values in this interval not displayed. Medications: Current Facility-Administered Medications Medication ??? 0.9% NaCl injection 3 mL And ??? 0.9% NaCl injection 1-10 mL ??? artificial tears ophthalmic ointment ??? atorvastatin (Lipitor) tablet 40 mg ??? chlorhexidine (Peridex) 0.12 % oral solution 15 mL ??? cloBAZam (Onfi) tablet 20 mg ??? dextrose 10 % IV bolus Or ??? dextrose 10 % IV bolus ??? divalproex sprinkle (Depakote Sprinkle) capsule 500 mg ??? enoxaparin (Lovenox) injection 40 mg ??? glucagon (Glucagen) injection 1 mg ??? glucose (Diabetic Use) (Dex4 Glucose) oral liquid ??? glucose (Diabetic Use) oral gel ??? glucose chew tablet 4 tablet ??? guaiFENesin (Robitussin) solution 10 mL ??? lacosamide (Vimpat) tablet 200 mg ??? levalbuterol (Xopenex) nebulizer solution 1.25 mg ??? levETIRAcetam (Keppra) tablet 2,000 mg ??? magnesium sulfate 2 g in 50 mL bolus ??? meropenem (Merrem) 1,000 mg in 0.9% NaCl IV 50 mL IVPB ??? polyethylene glycol 3350 (Miralax) packet 17 g ??? senna-docusate (Senokot-S) tablet 1 tablet ??? sodium chloride (Inhalant) 7 % nebulizer solution 4 mL Skin/Wound: WDL Nutrition Care Process (1) Nutrition Diagnostic Statement: Inadequate protein-energy intake related to:: decreased ability to consume or tolerate adequate food and/or fluids due to illness;swallowing difficulty as evidenced by:: estimated intake insufficient to meet requirements;BMI less than 19;unintentionalweight loss Nutrition Diagnostic Statement Progress: Nutrition problem continues Nutrition Intervention: Enteral nutrition: Monitoring: GI, TF, WT, labs, medications Evaluation: Nutrition Goal: Total intake will meet estimated nutrient needs Nutrition Goal Timeframe: Throughout stay Nutrition Goal Progress: Continue with current goal Ascom [id number] * Philly Otoole RN - 09/14/2022 9:21 AM CDT Care Coordination Progress Note Anticipated level of care at discharge: Custodial - Medicaid, [facility] CM Assessment: Patient admitted for acute on chronic hypoxic respiratory failure. Patient needs continuous abx for pseudomonas PNA, trach collar trials, continued IPV/nebulizer therapies, REPORTING COORDINATOR to determine longevity of PEG needs. Family updated, [facility] is following. CM will continueto follow POC and provide additional assistance as needed. Discharge Plan: LTAC READMISSION RISK SCORE is 27 at 9:21 AM 09/14/2022. Anticipated Discharge Date: 09/14/22 Patient/Family provided with list of resources? No Preferred Provider / High Quality Network List given?: No Reason for provider choice: Pt. choice - previous provider Family Support (Name and Phone): Extended Emergency Contact Information Primary Emergency Contact: Adriane Pearson Mobile Relation: Sister Shop Mechanic needed? No Secondary Emergency Contact: Amarjit Tabor [facility] Relation: Brother Patient is alert & orientated or has capacity for decision making: No If No , Legal or Designated Decision Maker: Sister (Name: Adriane Pearson, ) Transportation at Discharge: Ambulance Equipment at Home: Equipment at Home: Facility Equipment List DME patient requires but does not have: DME Provider: Medication affordability concerns: No Follow Up Appointment: Transportation to MD: Katerina Number (if required): NH: DME: Medications: Transportation: Philly Otoole RN, BSN, MSN, Vice President Underwriting [employer] [facility], Case Management Dept [phone] * Rae Donahue I., - 09/14/2022 9:01 AM CDT MICU PROGRESS NOTE Name: Bi Tabor Hospital Day: 17 SUBJECTIVE BRIEF HOSPITAL COURSE: Mr. Tabor is a 62 M w/ Hx CVA w/ L sided residual deficits, seizure disorder, dementia, dysphagia w/ recurrent aspiration s/p PEG, zenker divertiuculum s/p diverticulectomy 2022, chronic hypoxic respiratory faiure s/p trach 06/2022, PVD s/p L AKA c/b nonhealing foot wound, HTN who presented to [facility] 08/28 with shortness of breath, tachypnea, and increased WOB d/t lack of suction instruments at SNF. CXR w/ large R pleural effusion, R lung atelectasis, RUL GGO. Patient was started on broad spectrum abx. BCX + staph capitis, SpCx + MRSA and pseudomonas. UCx + pseudomonas. TTE negative for vegetations. Hospital course c/b mucus plugging requiring bronch 09/08, recurrent pseudomonas PNA (repeat SpCx 09/09 + pseudomonas resistant to cefepime). Patient is currently in ICU, ventilated (working on wean),and being treated for pseudomonas PNA w/ meropenem. INTERVAL HISTORY: NAEON. Tolerated trach collar overnight. OBJECTIVE Temp: [97.2 ??F (36.2 ??C)-98.7 ??F (37.1 ??C)] 97.2 ??F (36.2 ??C) Pulse: [72-100] 87 Resp: [11-100] 20 BP: (107-144)/(63-94) 107/71 O2 %: [30 %] 30 % I/O last 2 completed shifts: In: 2229 [I.V.:149; Other:180] Out: 1070 [Urine:1070] General: NAD HEENT: NC AT trach in place Cardio: RRR Resp: CTAB, trach collar Abdomen: Soft, NT, ND, +BS Extremities: L AKA, R no edema Skin: No visible rashes Neuro: Awake and able to follow R sided commands, nod appropriately ASSESSMENT & PLAN History of CVA (cerebrovascular accident) POA: Yes Paroxysmal tachycardia, unspecified (CMS/HCC) POA: Yes Seizure (CMS/HCC) POA: Yes Sepsis without acute organ dysfunction (CMS/HCC) POA: Yes Protein calorie malnutrition (CMS/HCC) POA: Yes Pulmonary infiltrate POA: Yes Acute on chronic respiratory failure with hypoxia (CMS/HCC) POA: Yes Tachycardia POA: Yes Tachypnea POA: Yes SOB (shortness of breath) POA: Yes Neuro # Seizure disorder -Home marcia: Lacosamide 200 BID, keppra 2 g BID, clobazam 20 BID, depakote 500 ---Monitor for seizures # Hx CVA c/b L sided deficits ---Continue home statin Cardiovascular Hx HTN. Not currently on antihypertensives # HFpEF: G1DD on TTE 08/2022 Pulmonary # Acute on chronic hypoxic respiratory failure # MDRO Pneumonia (MRSA, pseudomonas) -s/p tracheostomy 06/2022 -Tx for MRSA and pseudomonas PNA this admission. Currently being treated for Pseudomonas resistant to cefepime (+ Cx 09/09) w/ meropenem ---VAP bundle ---Continue meropenem for 7 day course (EOT 09/17) ---Continue trach collar ---Continue levalbuterol, HTS, guafenesin ---Frequent suctioning GI # Recurrent aspiration s/p PEG # Zenker diverticulum s/p diverticulectomy 06/2022 ---Continue TF Renal MARI Endocrine MARI. Hypoglycemia protocol Infectious Disease # MDRO Pneumonia -- MRSA and pseudomonas # Staph capitis bacteremia # Pseudomonas UTI ----Completed tx for UTI and bacteremia ----Currently completing tx for Pseudomonas PNA w/ Meropenem Hematology/Oncology # Anemia, thrombocytopenia -Trend CBC. Transfuse for Hb < 7, plt < 10 Lines: PIV; Trach, PEG DVT Prophylaxis: Lovenox GI Prophylaxis: N/A Diet: TF Activity: As tolerated Code status: Full Disposition: TTF Rae Donahue DO Pulmonary/Critical Care Medicine Fellow Associated attestation - Juan Diego Garcia MD - 09/14/2022 6:51 PM CDT I have seen, examined and discussed the patient with the fellow and I agree with the the findings and plan of care/recommendations as documented by the fellow. Date of service: 09/14/2022 Juan Diego Garcia M.D. Recreation Leader of Internal Medicine Division of Pulmonary, Critical Care and Sleep Medicine [facility] * Rae Donahue DO - 09/13/2022 1:58 PM CDT Family Notification Documentation Contact made: 09/13/2022 1:58 PM Person(s) contacted: sister Forrest Method of communication: In-person Duration of discussion: 10 minutes Summary of discussion Spoke with patient's sister, Adriane, at the bedside. Updated her on continued abx for pseudomonas PNA, trach collar trials, continued IPV/nebulizer therapies. She had concerns about aspiration and HOB, which we discussed. She also verbalized hope to continue working w/ REPORTING COORDINATOR to determine longevity of PEG needs. All questions were answered at this time. Will continue to update. * Yana Lawrence RN - 09/13/2022 1:05 PM CDT Problem: Impaired Gas Exchange Goal: Resp rate/effort will be within specified limits Outcome: Progressing Problem: Ineffective Airway Clearance Goal: Patent airway Outcome: Progressing Problem: Fall Risk Goal: Fall risk and fall related injury risk are minimized (interventions related to the fall risk can be found in the flowsheet documentation) Outcome: Progressing Problem: Nutrient: Inadequate protein-energy intake Goal: Total intake will meet estimated nutrient needs Outcome: Progressing Problem: Oxygenation/Respiratory Function Goal: Patent airway Outcome: Progressing Goal: Respiratory rate/effort will be within specified limits Outcome: Progressing Problem: Care of Tracheostomy Goal: Tracheostomy tube and site will be maintained Outcome: Progressing Problem: Potential for Infection Goal: Insertion site without signs/symptoms of infection Outcome: Progressing Problem: Knowledge Deficit Goal: Patient/Significant other demonstrates understanding of Tracheostomy Outcome: Progressing Problem: Communication/Dysarthria Goal: STG - Patient will tolerate PMV trials Outcome: Progressing Problem: Pain/Discomfort Goal: Patient exhibits reduced pain/discomfort as evidenced by pain scores Outcome: Progressing Goal: Patient uses pharmacological and non-pharmacological pain management strategies. Outcome: Progressing Goal: Patient verbalizes acceptable level of pain relief and ability to engage in desired activity. Outcome: Progressing * Rae Donahue DO - 09/13/2022 8:28 AM CDT MICU PROGRESS NOTE Name: Bi Tabor Hospital Day: 16 SUBJECTIVE BRIEF HOSPITAL COURSE: Mr. Tabor is a 62 M w/ Hx CVA w/ L sided residual deficits, seizure disorder, dementia, dysphagia w/ recurrent aspiration s/p PEG, zenker divertiuculum s/p diverticulectomy 2022, chronic hypoxic respiratory faiure s/p trach 06/2022, PVD s/p L AKA c/b nonhealing foot wound, HTN who presented to [facility] 08/28 with shortness of breath, tachypnea, and increased WOB d/t lack of suction instruments at SNF. CXR w/ large R pleural effusion, R lung atelectasis, RUL GGO. Patient was started on broad spectrum abx. BCX + staph capitis, SpCx + MRSA and pseudomonas. UCx + pseudomonas. TTE negative for vegetations. Hospital course c/b mucus plugging requiring bronch 09/08, recurrent pseudomonas PNA (repeat SpCx 09/09 + pseudomonas resistant to cefepime). Patient is currently in ICU, ventilated (working on wean),and being treated for pseudomonas PNA w/ meropenem. INTERVAL HISTORY: NAEON. Awake this AM and nodding appropriately. OBJECTIVE Temp: [97.8 ??F (36.6 ??C)-98.9 ??F (37.2 ??C)] 97.8 ??F (36.6 ??C) Pulse: [75-101] 83 Resp: [16-23] 17 BP: (99-137)/(65-87) 119/74 O2 %: [30 %] 30 % I/O last 2 completed shifts: In: 1744.5 [I.V.:298.5] Out: 2650 [Urine:2650] General: NAD, vented via trach HEENT: NC AT trach in place Cardio: RRR Resp: CTAB, MV through trach -- PSV Abdomen: Soft, NT, ND, +BS Extremities: L AKA, R no edema Skin: No visible rashes Neuro: Awake and able to follow R sided commands, nod appropriately ASSESSMENT & PLAN History of CVA (cerebrovascular accident) POA: Yes Paroxysmal tachycardia, unspecified (CMS/HCC) POA: Yes Seizure (CMS/HCC) POA: Yes Sepsis without acute organ dysfunction (CMS/HCC) POA: Yes Protein calorie malnutrition (CMS/HCC) POA: Yes Pulmonary infiltrate POA: Yes Acute on chronic respiratory failure with hypoxia (CMS/HCC) POA: Yes Tachycardia POA: Yes Tachypnea POA: Yes SOB (shortness of breath) POA: Yes Neuro # Seizure disorder -Home marcia: Lacosamide 200 BID, keppra 2 g BID, clobazam 20 BID, depakote 500 ---Monitor for seizures # Hx CVA c/b L sided deficits ---Continue home statin Cardiovascular Hx HTN. Not currently on antihypertensives # HFpEF: G1DD on TTE 08/2022 Pulmonary # Acute on chronic hypoxic respiratory failure # MDRO Pneumonia (MRSA, pseudomonas) -s/p tracheostomy 06/2022 -Tx for MRSA and pseudomonas PNA this admission. Currently being treated for Pseudomonas resistant to cefepime (+ Cx 09/09) w/ meropenem ---VAP bundle ---Continue meropenem for 7 day course (EOT 09/17) ---Continue mechanical ventilation. Consider trach collar trials ---Continue levalbuterol, HTS, guafenesin ---Frequent suctioning GI # Recurrent aspiration s/p PEG # Zenker diverticulum s/p diverticulectomy 06/2022 ---Continue TF Renal MARI Endocrine MARI. Hypoglycemia protocol Infectious Disease # MDRO Pneumonia -- MRSA and pseudomonas # Staph capitis bacteremia # Pseudomonas UTI ----Completed tx for UTI and bacteremia ----Currently completing tx for Pseudomonas PNA w/ Meropenem Hematology/Oncology # Anemia, thrombocytopenia -Trend CBC. Transfuse for Hb < 7, plt < 10 Lines: PIV; Trach, PEG DVT Prophylaxis: Lovenox GI Prophylaxis: N/A Diet: TF Activity: As tolerated Code status: Full Disposition: ICU Rae Donahue DO Pulmonary/Critical Care Medicine Fellow Associated attestation - Juan Diego Garcia MD - 09/13/2022 6:49 PM CDT I have seen, examined and discussed the patient with the fellow and I agree with the the findings and plan of care/recommendations as documented by the fellow. Date of service: 09/13/2022 Juan Diego Garcia M.D. Recreation Leader of Internal Medicine Division of Pulmonary, Critical Care and Sleep Medicine [facility] * Yana Lawrence RN - 09/12/2022 4:13 PM CDT Problem: Impaired Gas Exchange Goal: Resp rate/effort will be within specified limits Outcome: Progressing Problem: Ineffective Airway Clearance Goal: Patent airway Outcome: Progressing Problem: Fall Risk Goal: Fall risk and fall related injury risk are minimized (interventions related to the fall risk can be found in the flowsheet documentation) Outcome: Progressing Problem: Nutrient: Inadequate protein-energy intake Goal: Total intake will meet estimated nutrient needs Outcome: Progressing Problem: Oxygenation/Respiratory Function Goal: Patent airway Outcome: Progressing Goal: Respiratory rate/effort will be within specified limits Outcome: Progressing Problem: Care of Tracheostomy Goal: Tracheostomy tube and site will be maintained Outcome: Progressing Problem: Potential for Infection Goal: Insertion site without signs/symptoms of infection Outcome: Progressing Problem: Knowledge Deficit Goal: Patient/Significant other demonstrates understanding of Tracheostomy Outcome: Progressing Problem: Communication/Dysarthria Goal: STG - Patient will tolerate PMV trials Outcome: Progressing Problem: Pain/Discomfort Goal: Patient exhibits reduced pain/discomfort as evidenced by pain scores Outcome: Progressing Goal: Patient uses pharmacological and non-pharmacological pain management strategies. Outcome: Progressing Goal: Patient verbalizes acceptable level of pain relief and ability to engage in desired activity. Outcome: Progressing * Karime Malik MD - 09/12/2022 10:43 AM CDT Family Notification Documentation Family was updated yesterday, sister is coming today, will update as well. * Karime Malik MD - 09/12/2022 10:42 AM CDT Images from the original note were not included. MICU PROGRESS NOTE 09/12/2022 at 10:42 AM Admit Date: 08/28/2022 LOS: 15 days BRIEF HOSPITAL COURSE: Bi Tabor is a 62 year old male PMHx of CVA with residual left-sided deficits, HTN, seizure disorder, dementia, dysphagia with recurrent aspiration s/p PEG tube, PVD s/p left AKA c/b non-healing foot wound (02/2022), Zenker diverticulum s/p diverticulectomy (07/15/2022), chronic hypoxic respiratory failure s/p tracheostomy (07/15/2022) who presented to ED on 08/28/2022 with SOB. Pt was tachypneic with increased work of breathing. SNF did not have suction instruments, so he was brought to ED. In the ED, vitals were Temp 100.2 degrees, BP 133/87, HR 121, RR 27, SpO2 95% on 10 L. Labs showed WBC 15.4, hemoglobin 11.8, platelets 143, creatinine 0.51, troponin 10 --> 9, procalcitonin <0.02.UA showed 2+ LE, 21-50 WBC, trace bacteria.CXR showed large right pleural effusion resulting in near complete collapse of the right lung and ill-defined/GGO of the remaining aerated portion of the RUL. Pt started on IV vancomycin and cefepime. MRSA PCR positive. Blood cultures x2 positive for staphylococcus capitis. Sputum culture positive for MRSA and pseudomonas. Urine culture positive for pseudomonas. ID consulted. TTE without vegetations. Underwent bronch on 09/08 for mucus plugging Repeat sputum cx sent on 09/09 due to febrile and repeat thick secretions. Sputum cx from 09/09 positive for pseudomonas resistant to cefepime ABx changed on 09/10 from vanc and cefepime to meropenem. Interval History: No acute events overnight SUBJECTIVE (Last 24 hours): Unable to assess. Patient trached and non-verbal OBJECTIVE: Temp: [97.9 ??F (36.6 ??C)-99 ??F (37.2 ??C)] 97.9 ??F (36.6 ??C) Pulse: [73-102] 80 Resp: [9-85] 15 BP: (101-131)/(62-83) 127/72 O2 %: [30 %-35 %] 30 % Intake/Output Summary (Last 24 hours) at 09/12/2022 1042 Last data filed at 09/12/2022 0736 Gross per 24 hour Intake 1457.93 ml Output 2200 ml Net -742.07 ml Physical Exam: General: Lying in bed, Elderly, Trach HEENT: PERRL, EOMI, MMM, No JVD. Trach+ Lungs: CTAB no wheezes Heart: RRR no murmurs Abdomen: S/NT/ND/BS x4, PEG tube + Extremity: No Edema, Pulses 2+; Left AKA Skin: Warm and dry. No rashes or bruising noted. Neurological: Non-verbal due to trach, able to follow commands on the right. Intake/Output Summary (Last 24 hours) at 09/12/2022 1042 Last data filed at 09/12/2022 0736 Gross per 24 hour Intake 1457.93 ml Output 2200 ml Net -742.07 ml Vitals Pulse: 80 SpO2: 97 % Ventilator Information Ventilator ID: [id number] Ventilation Rate SET VENTILATION RATE (bpm): 15 bpm OBSERVED VENTILATION RATE (bpm): 14 bpm Insp Time (sec): 0.67 sec Insp Flow (L/Min): 40 l/Min Insp rise/Ramp (sec): 50 Sec ETS (%): 45 % I:E Ratio: 1:6.0 Actual I:E Ratio: 1:6.5 f/VT (RSBI): 57 Volumes EXHALED TIDAL VOLUME (ml): 328 ml Spontaneous Tidal Volume (mL): 352 ML Observed Minute Ventilation (L/m): 4.6 Liters/Minute Ventilator Pressures OBSERVED PEAK INSPIRATORY PRESSURE (cm H2O): 23 cm H2O Pressure Support: 12 cm H2O PLATEAU PRESSURE (cm H2O): 15 cm H2O Mean Airway Pressure (cm H2O): 10 cm H2O PEEP/CPAP: 8 cm H20 Safety & Alarms Airway Emergency Supplies Available: Bulb syringe/suction;Resuscitation Bag with PEEP Valve;Appropriate Size Mask;Oxygen Connecting Tubing;Obturator;Extra Trach Same Size;Extra Trach Smaller Size Humidity Temp (C): 37 Celsius Humidifier alarm on and functional: Yes Backup Mode Checked: Yes Alarm Volume: 10 High Pressure Alarm (cm H2O): 40 cm H2O Low Minute Ventilation : 3 Low Tidal Volume : 200 ml High Tidal Volume : 1000 Low Resp Rate: 8 High Resp Rate: 40 Apnea alarm (On/Off): On Apnea (secs): 20 secs Pulmonary Suctioning Suctioned?: Yes Suction Mode: Trach Catheter Size: 14 FR Secretion Consistency: Thick Secretion Color: Gerard;White Secretions Amount: Large Hyperoxygenated prior to suctioning?: Yes Labs: CBC: Recent Labs Component Name 09/12/2244209/11/2243409/10/22442 WBC 8.9 9.1 7.8 HGB 9.1* 8.9* 9.3* BMP: Recent Labs Component Name 04/16/23 0443 04/15/23 0435 04/14/23 0443 NA 140 139 137 CL 106 105 106 CO2 28 28 28 BUN 15 20 19 CREATININE 0.39* 0.39* 0.43* CALCIUM 9.3 9.4 8.9 MAGNESIUM 1.8 1.7 1.8 PHOS 2.8 3.1 3.4 LFT: Recent Labs Component Name 08/28/22 2224 08/28/22 1251 06/30/22 1039 PROT 6.0 7.5 6.2 ALB 2.0* 2.5* 2.2* ALKPHOS 67 88 65 AST 13 14 13 ALT 5 6 5 Coagulation: Recent Labs Component Name 08/28/22 2224 06/27/22 2215 05/11/22 1309 PT 15.2* 12.8 13.5 INR 1.2 1.0 1.0 Cardiac markers: Recent Labs Component Name 07/11/22 0040 07/01/22 1634 06/28/22 0141 06/27/22 2215 05/30/22 1750 03/08/22 1455 12/31/21 0412 CKTOTAL 49 42 - - - - 77 TROPONINI - - <0.010 <0.010 <0.010 - - - = values in this interval not displayed. Microbiology: Microbiology Results (Displays last 21 days for this encounter ONLY) Procedure Component Value - Date/Time CULTURE SPUTUM+GRAM STAIN [[id number]] (Abnormal) (Susceptibility) Collected: 09/08/22 0438 Lab Status: Final result Specimen: Microbiology from Sputum Lower Resp Tract Updated: 09/11/22 0653 Culture Moderate Pseudomonas aeruginosa Moderate normal oropharyngeal domenico Gram Stain <10 per low power field Squamous epithelial cells >= 25 per low power field Polymorphonuclear cells Moderate Gram-negative bacilli Rare Gram-positive bacilli Susceptibility Pseudomonas aeruginosa (1) Antibiotic Interpretation Microscan Method Status Piperacillin-tazobactam Resistant KB Final Amikacin Susceptible <=2 ug/mL JELLY Final Cefepime Resistant >=64 ug/mL JELLY Final Ceftazidime Resistant >=64 ug/mL JELLY Final Ciprofloxacin Susceptible <=0.25 ug/mL JELLY Final Gentamicin Susceptible <=1 ug/mL JELLY Final Meropenem Susceptible 0.5 ug/mL JELLY Final Tobramycin Susceptible <=1 ug/mL JELLY Final CULTURE BLOOD [[id number]] (Normal) Collected: 08/30/22 09 Lab Status: Final result Specimen: Blood Peripheral Updated: 09/04/22 140 Culture No growth day 5 CULTURE BLOOD [[id number]] (Normal) Collected: 08/30/22 0940 Lab Status: Final result Specimen: Blood Peripheral Updated: 09/04/22 1401 Culture No growth day 5 CULTURE URINE [[id number]] (Abnormal) (Susceptibility) Collected: 08/29/22 0514 Lab Status: Final result Specimen: Urine Clean Catch Updated: 09/01/22 0049 Culture Urine 50,000-100,000 CFU/mL Pseudomonas aeruginosa 50,000-100,000 CFU/mL urogenital domenico Susceptibility Pseudomonas aeruginosa (3) Antibiotic Interpretation Microscan Method Status Amikacin Susceptible 4 ug/mL JELLY Final Cefepime Susceptible 4 ug/mL JELLY Final Ceftazidime Susceptible 4 ug/mL JELLY Final Ciprofloxacin Susceptible <=0.25 ug/mL JELLY Final Gentamicin Susceptible 2 ug/mL JELLY Final Meropenem Susceptible <=0.25 ug/mL JELLY Final Piperacillin-tazobactam Susceptible <=4 ug/mL JELLY Final Tobramycin Susceptible <=1 ug/mL JELLY Final CULTURE SPUTUM+GRAM STAIN [[id number]] (Abnormal) (Susceptibility) Collected: 08/29/22512 Lab Status: Final result Specimen: Microbiology from Sputum Suctioned Updated: 08/31/22 0249 Culture Moderate Pseudomonas aeruginosa Moderate Staphylococcus aureus methicillin-resistant (MRSA) Comment: Staphylococcus aureus methicillin-resistant (MRSA) detected by penicillin binding protein immunoassay. Contact precautions required. Conventional antibiotic susceptibility testing to follow. Moderate normal oropharyngeal domenico Gram Stain <10 per low power field Squamous epithelial cells >= 25 per low power field Polymorphonuclear cells Heavy Gram-positive cocci Moderate Gram-positive bacilli Narrative: Methicillin-resistant Staphylococci (MRSA) are resistant to all currently available beta-lactam antibiotics with the exception of the newer cephalosporins with anti-MRSA activity. Contact precautionsrequired. Susceptibility Pseudomonas aeruginosa (1) Antibiotic Interpretation Microscan Method Status Amikacin Susceptible <=2 ug/mL JELLY Final Cefepime Susceptible 2 ug/mL JELLY Final Ceftazidime Susceptible 8 ug/mL JELLY Final Ciprofloxacin Susceptible <=0.25 ug/mL JELLY Final Gentamicin Susceptible <=1 ug/mL JELLY Final Meropenem Susceptible <=0.25 ug/mL JELLY Final Piperacillin-tazobactam Intermediate 32 ug/mL JELLY Final Tobramycin Susceptible <=1 ug/mL JELLY Final Staphylococcus aureus methicillin-resistant (MRSA) (2) Antibiotic Interpretation Microscan Method Status Clindamycin Resistant 0.25 ug/mL JELLY Final Doxycycline Susceptible <=0.5 ug/mL JELLY Final Gentamicin Susceptible <=0.5 ug/mL JELLY Final Inducible Clindamycin Resistance Pos POS ug/mL JELLY Final Linezolid Susceptible 2 ug/mL JLELY Final Oxacillin Resistant >=4 ug/mL JELLY Final Tetracycline Susceptible <=1 ug/mL JELLY Final Trimethoprim-sulfamethoxazole Susceptible <=10 ug/mL JELLY Final Vancomycin Susceptible <=0.5 ug/mL JELLY Final Susceptibility Comments This isolate is presumed to be resistant to clindamycin on the basis of detection of inducible clindamycin resistance. MRSA DNA PCR [[id number]] (Abnormal) Collected: 08/28/22 1442 Lab Status: Final result Specimen: Microbiology from Nasal Updated: 08/28/221951 MRSA DNA by PCR Detected Narrative: 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 CULTURE BLOOD [[id number]] (Abnormal) (Susceptibility) Collected: 08/28/22 1251 Lab Status: Final result Specimen: Blood Peripheral Updated: 08/31/22 1209 Culture Growth of Staphylococcus capitis Gram Stain Gram-positive cocci in clusters Narrative: Pos @ 18.5 hours Susceptibility Staphylococcus capitis (1) Antibiotic Interpretation Microscan Method Status Clindamycin Resistant >=4 ug/mL JELLY Final Doxycycline Susceptible <=0.5 ug/mL JELLY Final Gentamicin Susceptible <=0.5 ug/mL JELLY Final Inducible Clindamycin Resistance Neg NEG ug/mL JELLY Final Linezolid Susceptible 2 ug/mL JELLY Final Oxacillin Resistant >=4 ug/mL JELLY Final Tetracycline Susceptible <=1 ug/mL JELLY Final Trimethoprim-sulfamethoxazole Susceptible <=10 ug/mL JELLY Final Vancomycin Susceptible 1 ug/mL JELLY Final BCID PANEL [[id number]] (Abnormal) Collected: 08/28/22 1251 Lab Status: Final result Specimen: Blood Peripheral Updated: 08/29/22 1427 Staphylococcus species Detected Comment: Staphylococcus species (not S. aureus, S. lugdunensis, or S. epidermidis). Narrative: Blood Culture ID Panel performed by [employer] multiplex PCR. Test Panel includes: Antimicrobial Resistance Genes: Mec A/C and MREJ (methicillin-resistance gene-MRSA) and van A/B (vancomycin- resistance gene). Gram Positive Bacteria: Enterococcus faecalis, Enterococcus faecium, Staphylococcus (genus), Staphylococcus aureus, Staphylococcus epidermidis, Staphylococcus lugdunensis, Streptococcus (genus), Streptococcus agalactiae (Group B), Streptococcus pneumoniae, Streptococcus pyogenes (Group A). CULTURE BLOOD [[id number]] (Abnormal) Collected: 08/28/22 1238 Lab Status: Final result Specimen: Blood Peripheral Updated: 08/31/22 1051 Culture Growth of Staphylococcus capitis Gram Stain Gram-positive cocci in clusters Narrative: Positive @ 24 hours and 40 minutes Refer to previously reported susceptibility testing, specimen number: [id number] SARS-COV-2 (COVID-19)+INFLU A+B PCR RAPID [[id number]] (Normal) Collected: 08/28/22 1220 Lab Status: Final result Specimen: Microbiology from Nasopharyngeal Updated: 08/28/22 1308 COVID-19 PCR Not detected Influenza A Rapid [...] acid amplification assay performance was validated by [facility]. This test has been authorized [...] this EUA assay are available upon request. Imaging: Following images reviewed CT ANGIO CHEST PULM EMBOLISM Result Date: 09/08/2022 IMPRESSION: 1. No CT evidence of pulmonary embolism. 2. Debris and secretions within the in right main bronchus with worsening collapse of the right lower and middle lobe. There is increasing left toright mediastinal shift. The right upper lobe appears partially collapsed. There is dense consolidation within all 3 lobes of the right lung which likely a combination of atelectasis and aspiration. There is a right-sided pleural effusion. > Dictated by Quan Nguyễn MD. I, Eron Payton have personally reviewed and interpreted this examination/study. > Interpreting Provider: Eron Payton on 09/08/2022 10:21 AM Medications: Scheduled Medications ??? 0.9% NaCl 3 mL Intracatheter q8h ??? artificial tears Each Eye q8h ??? atorvastatin 40 mg Enteral Tube QDAY ??? chlorhexidine 15 mL Mouth/Throat BID ??? cloBAZam 20 mg Enteral Tube BID ??? divalproex sprinkle 500 mg Enteral Tube q6h ??? enoxaparin 40 mg Subcutaneous QDAY ??? guaiFENesin 10 mL Enteral Tube q6h ??? lacosamide 200 mg Enteral Tube BID ??? levalbuterol 1.25 mg Inhalation q6h ??? levETIRAcetam 2,000 mg Enteral Tube BID ??? magnesium sulfate 1 g Intravenous Once ??? meropenem 1,000 mg Intravenous q8h ??? polyethylene glycol 3350 17 g Enteral Tube BID ??? senna-docusate 1 tablet Enteral Tube BID ??? sodium chloride (Inhalant) 4 mL Inhalation BID Continuous Medications PRN Medications ??? SALINE LOCK, INSERT AND MAINTAIN AND 0.9% NaCl AND 0.9% NaCl ??? dextrose IV for hypoglycemia OR dextrose IV for hypoglycemia ??? glucagon ??? glucose (Diabetic Use) ??? glucose (Diabetic Use) gel ??? glucose chew tab ASSESSMENT History of CVA (cerebrovascular accident) POA: Yes Paroxysmal tachycardia, unspecified (CMS/HCC) POA: Yes Seizure (CMS/HCC) POA: Yes Sepsis without acute organ dysfunction (CMS/HCC) POA: Yes Protein calorie malnutrition (CMS/HCC) POA: Yes Pulmonary infiltrate POA: Yes Acute on chronic respiratory failure with hypoxia (CMS/HCC) POA: Yes Tachycardia POA: Yes Tachypnea POA: Yes SOB (shortness of breath) POA: Yes PLAN: NEURO/PSYCH: #Seizure disorder -Home meds: Lacosamide 200 mg BID, levetiracetam 2000 mg BID, clobazam 20 mg BID -Divalproex 500 mg Q6H started on 08/30. Valproate level on 08/30 was <13 Plan: -Continue above #CVA Left sided residual deficits - c/w home statin CARDIO: No active issues. Most recent TTE on 08/30/2022 showed EF 58%, grade I DD, no vegetations PULM: Right-sided pleural effusion #AHRF #Mucus plugging #s/p tracheostomy -. Pt started on vancomycin and cefepime on admission. Sputum culture positive for MRSA and pseudomonas -No window on bedside thoracentesis on 08/30 -s/p antibiotics above with EOT on 09/03 -CXR on 09/04 shows persistent collapse of RLL. 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 Unclear source at this time. Pt does not have CVC or arterial line -UA showed 2+ LE, 21-50 WBC, trace bacteria. Urine culture positive for pseudomonas -Sputum culture positive for MRSA and pseudomonas -Repeat blood cultures x2 from 08/30 showed no growth Plan: - IV meropenem for 7 days (09/10 - ) HEME/ONC: #Anemia #Thrombocytopenia - resolved Plan: -Continue to monitor. Transfuse for hemoglobin <7 or platelets <10 Transfusion Protocol: Hb < 7, Plt < 10 LDA: Peripheral IV Anterior;Right Forearm (Active) Placement Date/Time: 09/09/22 0000 Orientation: Anterior;Right Location: Forearm Name/Credentials of person who placed: k christianson IV Catheter Size: 20 Gauge Technique: Ultrasound Guidance Number ofstart attempts: 1 Local Anesthetic Used?: No... Number of days: 1 Enteral - Percutaneous Endoscopic Gastrostomy Abdomen;Midline;Upper (Active) Placement Date/Time: 03/25/22 1654 Name/Credentials of person who placed: Jolynn Ann MD Type: Percutaneous Endoscopic Gastrostomy Tube Location: Abdomen;Midline;Upper Size (FR): 24 Procedure Tolerance: Well Number of days: 168 Trach Shiley (Active) Placement Date/Time: 07/15/22 0943 Person who placed: DR CALLAHAN Brand: Christine Cuff Type: Air Trach size: 6 MM Inner Cannula Size: 7.5 FR Procedure Tolerance: General Anesthesia Number of days: 56 Trach Bivona (Active) No placement date or time found. Pre-existing airway in place from:: Outside Facility Brand: BivonaAirway Device: Cuffed Cuff Type: Water (Bivona) Number of days: External Urinary Device 09/01/22 1200 (Active) Placement Date/Time: 09/01/22 1200 Procedure Tolerance: Well Number of days: 8 Prophylaxis: DVT prophylaxis: [x] Lovenox 40mg , [] Lovenox 30mg, [] Sq Heparin GI prophylaxis: none Aspiration precautions with elevation of HOB by 30 degrees. Fluids: none Diet: DIET TUBE FEEDING CONTINUOUS DIET NPO Except: NO EXCEPTIONS Activity: Ad Merline Disposition: ICU Monitoring Code Status: Full Code Karime Malik MD Critical care fellow Associated attestation - Juan Diego Garcia MD - 09/12/2022 8:56 PM CDT I have seen, examined and discussed the patient with the fellow and I agree with the the findings and plan of care/recommendations as documented by the fellow. Date of service: 09/12/2022 Juan Diego Garcia M.D. Recreation Leader of Internal Medicine Division of Pulmonary, Critical Care and Sleep Medicine [facility] * Karime Malik MD - 09/11/2022 4:00 PM CDT Family Notification Documentation ?? Contact made: 09/11/2022 4:01 PM Person(s) contacted: Adriane Pearson Method of communication: Phone Phone number: [phone] ?? Summary of discussion I called Adriane and updated her on Bi's condition. All questions were answered. * Neli Guan RN - 09/11/2022 1:20 PM CDT Notified MICU 3 of Changes on Bedside Monitor Stat 12 Led obtained. Notified MICU 3 of EKG Changes Pt VS WNL patient has no c/o @ this time. Pt shows no s/sx of distress @ this time no new orders. * Karime Malik MD - 09/11/2022 10:13 AM CDT Images from the original note were not included. MICU PROGRESS NOTE 09/11/2022 at 10:13 AM Admit Date: 08/28/2022 LOS: 14 days BRIEF HOSPITAL COURSE: Bi aTbor is a 62 year old male PMHx of CVA with residual left-sided deficits, HTN, seizure disorder, dementia, dysphagia with recurrent aspiration s/p PEG tube, PVD s/p left AKA c/b non-healing foot wound (02/2022), Zenker diverticulum s/p diverticulectomy (07/15/2022), chronic hypoxic respiratory failure s/p tracheostomy (07/15/2022) who presented to ED on 08/28/2022 with SOB. Pt was tachypneic with increased work of breathing. SNF did not have suction instruments, so he was brought to ED. In the ED, vitals were Temp 100.2 degrees, BP 133/87, HR 121, RR 27, SpO2 95% on 10 L. Labs showed WBC 15.4, hemoglobin 11.8, platelets 143, creatinine 0.51, troponin 10 --> 9, procalcitonin <0.02.UA showed 2+ LE, 21-50 WBC, trace bacteria.CXR showed large right pleural effusion resulting in near complete collapse of the right lung and ill-defined/GGO of the remaining aerated portion of the RUL. Pt started on IV vancomycin and cefepime. MRSA PCR positive. Blood cultures x2 positive for staphylococcus capitis. Sputum culture positive for MRSA and pseudomonas. Urine culture positive for pseudomonas. ID consulted. TTE without vegetations. Underwent bronch on 09/08 for mucus plugging Repeat sputum cx sent on 09/09 due to febrile and repeat thick secretions. Sputum cx from 09/09 positive for pseudomonas resistant to cefepime ABx changed on 09/10 from vanc and cefepime to meropenem. Interval History: No acute events overnight SUBJECTIVE (Last 24 hours): Unable to assess. Patient trached and non-verbal OBJECTIVE: Temp: [97.9 ??F (36.6 ??C)-98.4 ??F (36.9 ??C)] 98 ??F (36.7 ??C) Pulse: [90-111] 104 Resp: [12-31] 15 BP: (96-132)/(67-86) 116/85 O2 %: [30 %-35 %] 35 % Intake/Output Summary (Last 24 hours) at 09/11/2022 1013 Last data filed at 09/11/2022 0747 Gross per 24 hour Intake 2561 ml Output 1450 ml Net 1111 ml Physical Exam: General: Lying in bed, Elderly, Trach HEENT: PERRL, EOMI, MMM, No JVD. Trach+ Lungs: CTAB no wheezes Heart: RRR no murmurs Abdomen: S/NT/ND/BS x4, PEG tube + Extremity: No Edema, Pulses 2+; Left AKA Skin: Warm and dry. No rashes or bruising noted. Neurological: Non-verbal due to trach, able to follow commands on the right. Intake/Output Summary (Last 24 hours) at 09/11/2022 1013 Last data filed at 09/11/2022 0747 Gross per 24 hour Intake 2561 ml Output 1450 ml Net 1111 ml Vitals Pulse: 104 SpO2: 100 % Ventilator Information Ventilator ID: [id number] Ventilation Rate SET VENTILATION RATE (bpm): 15 bpm OBSERVED VENTILATION RATE (bpm): 15 bpm Insp Time (sec): 0.67 sec Insp Flow (L/Min): 40 l/Min Insp rise/Ramp (sec): 50 Sec ETS (%): 45 % I:E Ratio: 1:3.3 Actual I:E Ratio: 1:3.3 f/VT (RSBI): 51 Volumes EXHALED TIDAL VOLUME (ml): 374 ml Spontaneous Tidal Volume (mL): 342 ML Observed Minute Ventilation (L/m): 4.7 Liters/Minute Ventilator Pressures OBSERVED PEAK INSPIRATORY PRESSURE (cm H2O): 22 cm H2O Pressure Support: 12 cm H2O PLATEAU PRESSURE (cm H2O): 15 cm H2O Mean Airway Pressure (cm H2O): 11 cm H2O PEEP/CPAP: 8 cm H20 Safety & Alarms Airway Emergency Supplies Available: Obturator;Bulb syringe/suction;Resuscitation Bag with PEEP Valve;Appropriate Size Mask;Extra Trach Same Size;Extra Trach Smaller Size Humidity Temp (C): 37 Celsius Humidifier alarm on and functional: Yes Backup Mode Checked: Yes Alarm Volume: 10 High Pressure Alarm (cm H2O): 40 cm H2O Low Minute Ventilation : 3 Low Tidal Volume : 200 ml High Tidal Volume : 1000 Low Resp Rate: 8 High Resp Rate: 40 Apnea alarm (On/Off): On Apnea (secs): 20 secs Pulmonary Suctioning Suctioned?: Yes Suction Mode: Oral;Trach Catheter Size: 14 FR Secretion Consistency: Thick Secretion Color: Yellow Secretions Amount: Moderate Hyperoxygenated prior to suctioning?: Yes Labs: CBC: Recent Labs Component Name 09/11/2243409/10/2244209/09/22414 WBC 9.1 7.8 7.4 HGB 8.9* 9.3* 9.5* BMP: Recent Labs Component Name 09/11/2243409/10/2244213/23 0415 NA 139 137 139 CL 105 106 104 CO2 28 28 26 BUN 20 19 18 CREATININE 0.39* 0.43* 0.45* CALCIUM 9.4 8.9 9.5 MAGNESIUM 1.7 1.8 1.7 PHOS 3.1 3.4 2.4* LFT: Recent Labs Component Name 08/28/22 2224 08/28/22 1251 06/30/22 1039 PROT 6.0 7.5 6.2 ALB 2.0* 2.5* 2.2* ALKPHOS 67 88 65 AST 13 14 13 ALT 5 6 5 Coagulation: Recent Labs Component Name 08/28/22 2224 06/27/22 2215 05/11/22 1309 PT 15.2* 12.8 13.5 INR 1.2 1.0 1.0 Cardiac markers: Recent Labs Component Name 07/11/22 0040 07/01/22 1634 06/28/22 0141 06/27/22 2215 05/30/22 1750 03/08/22 1455 12/31/21 0412 CKTOTAL 49 42 - - - - 77 TROPONINI - - <0.010 <0.010 <0.010 - - - = values in this interval not displayed. Microbiology: Microbiology Results (Displays last 21 days for this encounter ONLY) Procedure Component Value - Date/Time CULTURE SPUTUM+GRAM STAIN [[id number]] (Abnormal) (Susceptibility) Collected: 09/08/22 0438 Lab Status: Final result Specimen: Microbiology from Sputum Lower Resp Tract Updated: 09/11/22 0653 Culture Moderate Pseudomonas aeruginosa Moderate normal oropharyngeal domenico Gram Stain <10 per low power field Squamous epithelial cells >= 25 per low power field Polymorphonuclear cells Moderate Gram-negative bacilli Rare Gram-positive bacilli Susceptibility Pseudomonas aeruginosa (1) Antibiotic Interpretation Microscan Method Status Piperacillin-tazobactam Resistant KB Final Amikacin Susceptible <=2 ug/mL JELLY Final Cefepime Resistant >=64 ug/mL JELLY Final Ceftazidime Resistant >=64 ug/mL JELLY Final Ciprofloxacin Susceptible <=0.25 ug/mL JELLY Final Gentamicin Susceptible <=1 ug/mL JELLY Final Meropenem Susceptible 0.5 ug/mL JELLY Final Tobramycin Susceptible <=1 ug/mL JELLY Final CULTURE BLOOD [[id number]] (Normal) Collected: 08/30/22 0955 Lab Status: Final result Specimen: Blood Peripheral Updated: 09/04/22 1401 Culture No growth day 5 CULTURE BLOOD [[id number]] (Normal) Collected: 08/30/22 0940 Lab Status: Final result Specimen: Blood Peripheral Updated: 09/04/22 1401 Culture No growth day 5 CULTURE URINE [[id number]] (Abnormal) (Susceptibility) Collected: 08/29/22 0514 Lab Status: Final result Specimen: Urine Clean Catch Updated: 09/01/22 0049 Culture Urine 50,000-100,000 CFU/mL Pseudomonas aeruginosa 50,000-100,000 CFU/mL urogenital domenico Susceptibility Pseudomonas aeruginosa (3) Antibiotic Interpretation Microscan Method Status Amikacin Susceptible 4 ug/mL JELLY Final Cefepime Susceptible 4 ug/mL JELLY Final Ceftazidime Susceptible 4 ug/mL JELLY Final Ciprofloxacin Susceptible <=0.25 ug/mL JELLY Final Gentamicin Susceptible 2 ug/mL JELLY Final Meropenem Susceptible <=0.25 ug/mL JELLY Final Piperacillin-tazobactam Susceptible <=4 ug/mL JELLY Final Tobramycin Susceptible <=1 ug/mL JELLY Final CULTURE SPUTUM+GRAM STAIN [[id number]] (Abnormal) (Susceptibility) Collected: 08/29/22 0513 Lab Status: Final result Specimen: Microbiology from Sputum Suctioned Updated: 08/31/22 0249 Culture Moderate Pseudomonas aeruginosa Moderate Staphylococcus aureus methicillin-resistant (MRSA) Comment: Staphylococcus aureus methicillin-resistant (MRSA) detected by penicillin binding protein immunoassay. Contact precautions required. Conventional antibiotic susceptibility testing to follow. Moderate normal oropharyngeal domenico Gram Stain <10 per low power field Squamous epithelial cells >= 25 per low power field Polymorphonuclear cells Heavy Gram-positive cocci Moderate Gram-positive bacilli Narrative: Methicillin-resistant Staphylococci (MRSA) are resistant to all currently available beta-lactam antibiotics with the exception of the newer cephalosporins with anti-MRSA activity. Contact precautionsrequired. Susceptibility Pseudomonas aeruginosa (1) Antibiotic Interpretation Microscan Method Status Amikacin Susceptible <=2 ug/mL JELLY Final Cefepime Susceptible 2 ug/mL JELLY Final Ceftazidime Susceptible 8 ug/mL JELLY Final Ciprofloxacin Susceptible <=0.25 ug/mL JELLY Final Gentamicin Susceptible <=1 ug/mL JELLY Final Meropenem Susceptible <=0.25 ug/mL JELLY Final Piperacillin-tazobactam Intermediate 32 ug/mL JELLY Final Tobramycin Susceptible <=1 ug/mL JELLY Final Staphylococcus aureus methicillin-resistant (MRSA) (2) Antibiotic Interpretation Microscan Method Status Clindamycin Resistant 0.25 ug/mL JELLY Final Doxycycline Susceptible <=0.5 ug/mL JELLY Final Gentamicin Susceptible <=0.5 ug/mL JELLY Final Inducible Clindamycin Resistance Pos POS ug/mL JELLY Final Linezolid Susceptible 2 ug/mL JELLY Final Oxacillin Resistant >=4 ug/mL JELLY Final Tetracycline Susceptible <=1 ug/mL JELLY Final Trimethoprim-sulfamethoxazole Susceptible <=10 ug/mL JELLY Final Vancomycin Susceptible <=0.5 ug/mL JELLY Final Susceptibility Comments This isolate is presumed to be resistant to clindamycin on the basis of detection of inducible clindamycin resistance. MRSA DNA PCR [[id number]] (Abnormal) Collected: 08/28/22 1442 Lab Status: Final result Specimen: Microbiology from Nasal Updated: 08/28/221951 MRSA DNA by PCR Detected Narrative: 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 CULTURE BLOOD [[id number]] (Abnormal) (Susceptibility) Collected: 08/28/22 1251 Lab Status: Final result Specimen: Blood Peripheral Updated: 08/31/22 1209 Culture Growth of Staphylococcus capitis Gram Stain Gram-positive cocci in clusters Narrative: Pos @ 18.5 hours Susceptibility Staphylococcus capitis (1) Antibiotic Interpretation Microscan Method Status Clindamycin Resistant >=4 ug/mL JELLY Final Doxycycline Susceptible <=0.5 ug/mL JELLY Final Gentamicin Susceptible <=0.5 ug/mL JELLY Final Inducible Clindamycin Resistance Neg NEG ug/mL JELLY Final Linezolid Susceptible 2 ug/mL JELLY Final Oxacillin Resistant >=4 ug/mL JELLY Final Tetracycline Susceptible <=1 ug/mL JELLY Final Trimethoprim-sulfamethoxazole Susceptible <=10 ug/mL JELLY Final Vancomycin Susceptible 1 ug/mL JELLY Final BCID PANEL [[id number]] (Abnormal) Collected: 08/28/22 1251 Lab Status: Final result Specimen: Blood Peripheral Updated: 08/29/22 1427 Staphylococcus species Detected Comment: Staphylococcus species (not S. aureus, S. lugdunensis, or S. epidermidis). Narrative: Blood Culture ID Panel performed by [employer] multiplex PCR. Test Panel includes: Antimicrobial Resistance Genes: Mec A/C and MREJ (methicillin-resistance gene-MRSA) and van A/B (vancomycin- resistance gene). Gram Positive Bacteria: Enterococcus faecalis, Enterococcus faecium, Staphylococcus (genus), Staphylococcus aureus, Staphylococcus epidermidis, Staphylococcus lugdunensis, Streptococcus (genus), Streptococcus agalactiae (Group B), Streptococcus pneumoniae, Streptococcus pyogenes (Group A). CULTURE BLOOD [[id number]] (Abnormal) Collected: 08/28/22 1238 Lab Status: Final result Specimen: Blood Peripheral Updated: 08/31/22 1051 Culture Growth of Staphylococcus capitis Gram Stain Gram-positive cocci in clusters Narrative: Positive @ 24 hours and 40 minutes Refer to previously reported susceptibility testing, specimen number: [id number] SARS-COV-2 (COVID-19)+INFLU A+B PCR RAPID [[id number]] (Normal) Collected: 08/28/22 1220 Lab Status: Final result Specimen: Microbiology from Nasopharyngeal Updated: 08/28/22 1308 COVID-19 PCR Not detected Influenza A Rapid [...] acid amplification assay performance was validated by [facility]. This test has been authorized [...] this EUA assay are available upon request. Imaging: Following images reviewed CT ANGIO CHEST PULM EMBOLISM Result Date: 09/08/2022 IMPRESSION: 1. No CT evidence of pulmonary embolism. 2. Debris and secretions within the in right main bronchus with worsening collapse of the right lower and middle lobe. There is increasing left toright mediastinal shift. The right upper lobe appears partially collapsed. There is dense consolidation within all 3 lobes of the right lung which likely a combination of atelectasis and aspiration. There is a right-sided pleural effusion. > Dictated by Quan Nguyễn MD. I, Eron Payton have personally reviewed and interpreted this examination/study. > Interpreting Provider: Eron Payton on 09/08/2022 10:21 AM Medications: Scheduled Medications ??? 0.9% NaCl 3 mL Intracatheter q8h ??? artificial tears Each Eye q8h ??? atorvastatin 40 mg Enteral Tube QDAY ??? chlorhexidine 15 mL Mouth/Throat BID ??? cloBAZam 20 mg Enteral Tube BID ??? divalproex sprinkle 500 mg Enteral Tube q6h ??? enoxaparin 40 mg Subcutaneous QDAY ??? guaiFENesin 10 mL Enteral Tube q6h ??? lacosamide 200 mg Enteral Tube BID ??? levalbuterol 1.25 mg Inhalation q6h ??? levETIRAcetam 2,000 mg Enteral Tube BID ??? meropenem 1,000 mg Intravenous q8h ??? polyethylene glycol 3350 17 g Enteral Tube BID ??? senna-docusate 1 tablet Enteral Tube BID ??? sodium chloride (Inhalant) 4 mL Inhalation BID Continuous Medications PRN Medications ??? SALINE LOCK, INSERT AND MAINTAIN AND 0.9% NaCl AND 0.9% NaCl ??? dextrose IV for hypoglycemia OR dextrose IV for hypoglycemia ??? glucagon ??? glucose (Diabetic Use) ??? glucose (Diabetic Use) gel ??? glucose chew tab ASSESSMENT History of CVA (cerebrovascular accident) POA: Yes Paroxysmal tachycardia, unspecified (CMS/HCC) POA: Yes Seizure (CMS/HCC) POA: Yes Sepsis without acute organ dysfunction (CMS/HCC) POA: Yes Protein calorie malnutrition (CMS/HCC) POA: Yes Pulmonary infiltrate POA: Yes Acute on chronic respiratory failure with hypoxia (CMS/HCC) POA: Yes Tachycardia POA: Yes Tachypnea POA: Yes SOB (shortness of breath) POA: Yes PLAN: NEURO/PSYCH: #Seizure disorder -Home meds: Lacosamide 200 mg BID, levetiracetam 2000 mg BID, clobazam 20 mg BID -Divalproex 500 mg Q6H started on 08/30. Valproate level on 08/30 was <13 Plan: -Continue above #CVA Left sided residual deficits - c/w home statin CARDIO: No active issues. Most recent TTE on 08/30/2022 showed EF 58%, grade I DD, no vegetations PULM: Right-sided pleural effusion #AHRF #Mucus plugging #s/p tracheostomy -. Pt started on vancomycin and cefepime on admission. Sputum culture positive for MRSA and pseudomonas -No window on bedside thoracentesis on 08/30 -s/p antibiotics above with EOT on 09/03 -CXR on 09/04 shows persistent collapse of RLL. S/p bronchoscopy on 09/07, during which pt was oted tohave copious, thick secretions throughout the RUL, RML, and RL - Repeat sputum cx from 09/09 positive for pseudomonas resistant to cefepime Plan: -Continue levalbuterol nebulizers Q6H, hypertonic saline nebulizers BID, and guaifenesin 10 mL Q6H -Continue PSV - meropenem IV 1 g q8 h (total 7 days) GI: #Zenker diverticulum s/p diverticulectomy (06/2022) #Aspiration s/p PEG tube Plan: -Continue tube feeds with [facility] RENAL: MARI Electrolytes: Monitor chem 7 and Mg every 24 hours and replace Mg if less than1.8 or if K < 3.5 ENDOCRINE: BG goal 140-180 ID: #Staph capitis bacteremia #Pesudomonas UTI #MRSA and pseudomonas pneumonia #Leukocytosis -Blood cultures x2 from 08/28 positive for staph capitis. Unclear source at this time. Pt does not have CVC or arterial line -UA showed 2+ LE, 21-50 WBC, trace bacteria. Urine culture positive for pseudomonas -Sputum culture positive for MRSA and pseudomonas -Repeat blood cultures x2 from 08/30 showed no growth Plan: - IV meropenem for 7 days (09/10 - ) HEME/ONC: #Anemia #Thrombocytopenia - resolved Plan: -Continue to monitor. Transfuse for hemoglobin <7 or platelets <10 Transfusion Protocol: Hb < 7, Plt < 10 LDA: Peripheral IV Anterior;Right Forearm (Active) Placement Date/Time: 09/09/22 0000 Orientation: Anterior;Right Location: Forearm Name/Credentials of person who placed: mckayla christianson IV Catheter Size: 20 Gauge Technique: Ultrasound Guidance Number of start attempts: 1 Local Anesthetic Used?: No... Number of days: 1 Enteral - Percutaneous Endoscopic Gastrostomy Abdomen;Midline;Upper (Active) Placement Date/Time: 03/25/22 1654 Name/Credentials of person who placed: Jolynn Ann MD Type: Percutaneous Endoscopic Gastrostomy Tube Location: Abdomen;Midline;Upper Size (FR): 24 Procedure Tolerance: Well Number of days: 168 Trach Christine (Active) Placement Date/Time: 07/15/22 0943 Person who placed: DR CALLAHAN Brand: Christine Cuff Type: Air Trach size: 6 MM Inner Cannula Size: 7.5 FR Procedure Tolerance: General Anesthesia Number of days: 56 Trach Bivona (Active) No placement date or time found. Pre-existing airway in place from:: Outside Facility Brand: BivonaAirway Device: Cuffed Cuff Type: Water (Bivona) Number of days: External Urinary Device 09/01/22 1200 (Active) Placement Date/Time: 09/01/22 1200 Procedure Tolerance: Well Number of days: 8 Prophylaxis: DVT prophylaxis: [x] Lovenox 40mg , [] Lovenox 30mg, [] Sq Heparin GI prophylaxis: none Aspiration precautions with elevation of HOB by 30 degrees. Fluids: none Diet: DIET TUBE FEEDING CONTINUOUS DIET NPO Except: NO EXCEPTIONS Activity: Ad Merline Disposition: ICU Monitoring Code Status: Full Code Karime Malki MD Critical care fellow Associated attestation - Juan Diego Garcia MD - 09/11/2022 7:16 PM CDT I have seen, examined and discussed the patient with the fellow and I agree with the the findings and plan of care/recommendations as documented by the fellow. Date of service: 09/11/2022 Juan Diego Garcia M.D. Recreation Leader of Internal Medicine Division of Pulmonary, Critical Care and Sleep Medicine [facility] * Neli Guan, ALFRED - 09/11/2022 8:01 AM CDT Problem: Impaired Gas Exchange Goal: Resp rate/effort will be within specified limits Outcome: Progressing Problem: Ineffective Airway Clearance Goal: Patent airway Outcome: Progressing Problem: Fall Risk Goal: Fall risk and fall related injury risk are minimized (interventions related to the fall risk can be found in the flowsheet documentation) Outcome: Progressing Problem: Oxygenation/Respiratory Function Goal: Patent airway Outcome: Progressing * Philly Otoole RN - 09/10/2022 3:25 PM CDT Care Coordination Progress Note Anticipated level of care at discharge: Custodial - Medicaid, Studio Artist Acute Care (LTAC) CM Assessment: Patient admitted for acute on chronic hypoxic respiratory failure. Patient will needLTACH placement Laurita from [facility] is following patient for possible placement. CM will continue to follow POC and provide additional assistance as needed. Discharge Plan: [facility] READMISSION RISK SCORE is 28 at 3:25 PM 09/10/2022. Anticipated Discharge Date: 09/14/22 Patient/Family provided with list of resources? No Preferred Provider / High Quality Network List given?: No Reason for provider choice: Pt. choice - previous provider Family Support (Name and Phone): Extended Emergency Contact Information Primary Emergency Contact: Adriane Pearson Mobile Relation: Sister Shop Mechanic needed? No Secondary Emergency Contact: Amarjit Tabor [facility] Relation: Brother Patient is alert & orientated or has capacity for decision making: No If No , Legal or Designated Decision Maker: Sister (Name: Adriane Rodriguezlin, ) Transportation at Discharge: Ambulance Equipment at Home: Equipment at Home: Facility Equipment List DME patient requires but does not have: DME Provider: Medication affordability concerns: No Follow Up Appointment: Transportation to MD: Auth Number (if required): [place]: DME: Medications: Transportation: Philly Otoole RN, BSN, MSN, Vice President Underwriting [facility]isting [facility], Case Management Dept [phone] * Iggy Rodriguez - 09/10/2022 8:52 AM CDT Tuesday Summary Note Discharge Level of Care: LTC vs LTACH Discharge Destination: [facility] vs [facility] Auth: need for LTACH, not LTC Anticipated Mode of Transportation: ALS Contacts (Name, relationship, phone #): sister Forrest, Anticipated DC Date: TBD Pending Needs: medical stability Comments: Pt currently vented and only appropriate for LTACH. To return to [facility], Pt needs weaned down to 6L through trach and cannot require suctioning for that 2x per shift. CLARITA Turcios Phone [phone] 09/10/2022 * Rhina Cohen MD - 09/10/2022 8:00 AM CDT Images from the original note were not included. MICU PROGRESS NOTE 09/10/2022 at 8:00 AM Admit Date: 08/28/2022 LOS: 13 days BRIEF HOSPITAL COURSE: Bi Tabor is a 62 year old male PMHx of CVA with residual left-sided deficits, HTN, seizure disorder, dementia, dysphagia with recurrent aspiration s/p PEG tube, PVD s/p left AKA c/b non-healing foot wound (02/2022), Zenker diverticulum s/p diverticulectomy (07/15/2022), chronic hypoxic respiratory failure s/p tracheostomy (07/15/2022) who presented to ED on 08/28/2022 with SOB. Pt was tachypneic with increased work of breathing. SNF did not have suction instruments, so he was brought to ED. In the ED, vitals were Temp 100.2 degrees, BP 133/87, HR 121, RR 27, SpO2 95% on 10 L. Labs showed WBC 15.4, hemoglobin 11.8, platelets 143, creatinine 0.51, troponin 10 --> 9, procalcitonin <0.02.UA showed 2+ LE, 21-50 WBC, trace bacteria.CXR showed large right pleural effusion resulting in near complete collapse of the right lung and ill-defined/GGO of the remaining aerated portion of the RUL. Pt started on IV vancomycin and cefepime. MRSA PCR positive. Blood cultures x2 positive for staphylococcus capitis. Sputum culture positive for MRSA and pseudomonas. Urine culture positive for pseudomonas. ID consulted. TTE without vegetations. Underwent bronch on 09/08 for mucus plugging Repeat sputum cx sent on 09/09 due to febrile and repeat thick secretions. Sputum cx from 09/09 positive for pseudomonas resistant to cefepime ABx changed on 09/10 from vanc and cefepime to meropenem. Interval History: Febrile to 38.3 Sputum cx from 09/09 positive for pseudomonas resistant to cefepime ABx changed on 09/10 from vanc and cefepime to meropenem. SUBJECTIVE (Last 24 hours): Unable to assess. Patient trached and non-verbal OBJECTIVE: Temp: [98.5 ??F (36.9 ??C)-100.9 ??F (38.3 ??C)] 98.5 ??F (36.9 ??C) Pulse: [103-129] 112 Resp: [9-29] 27 BP: (111-143)/(78-94) 135/86 O2 %: [40 %] 40 % Intake/Output Summary (Last 24 hours) at 09/10/2022 0800 Last data filed at 09/10/2022 0753 Gross per 24 hour Intake 2759.01 ml Output 990 ml Net 1769.01 ml Physical Exam: General: Lying in bed, Elderly, Trach HEENT: PERRL, EOMI, MMM, No JVD. Trach+ Lungs: CTAB no wheezes Heart: RRR no murmurs Abdomen: S/NT/ND/BS x4, PEG tube + Extremity: No Edema, Pulses 2+; Left AKA Skin: Warm and dry. No rashes or bruising noted. Neurological: Non-verbal due to trach, able to follow commands on the right. Intake/Output Summary (Last 24 hours) at 09/10/2022 0800 Last data filed at 09/10/2022 0753 Gross per 24 hour Intake 2759.01 ml Output 990 ml Net 1769.01 ml Vitals Pulse: (!) 112 SpO2: 99 % Ventilator Information Ventilator ID: [id number] Ventilation Rate SET VENTILATION RATE (bpm): 15 bpm OBSERVED VENTILATION RATE (bpm): 24 bpm Insp Time (sec): 0.67 sec Insp Flow (L/Min): 40 l/Min Insp rise/Ramp (sec): 50 Sec ETS (%): 45 % Actual I:E Ratio: 1:3.4 f/VT (RSBI): 102 Volumes EXHALED TIDAL VOLUME (ml): 524 ml Spontaneous Tidal Volume (mL): 229 ML Observed Minute Ventilation (L/m): 5.7 Liters/Minute Ventilator Pressures OBSERVED PEAK INSPIRATORY PRESSURE (cm H2O): 22 cm H2O Pressure Support: 12 cm H2O Mean Airway Pressure (cm H2O): 11 cm H2O PEEP/CPAP: 8 cm H20 Safety & Alarms Airway Emergency Supplies Available: Bulb syringe/suction;Obturator;Resuscitation Bag with PEEP Valve;Appropriate Size Mask;Oxygen Connecting Tubing;Extra Trach Same Size;Extra Trach Smaller Size Humidity Temp (C): 37 Celsius Humidifier alarm on and functional: Yes Backup Mode Checked: Yes Alarm Volume: 10 High Pressure Alarm (cm H2O): 40 cm H2O Low Minute Ventilation : 3 Low Tidal Volume : 200 ml High Tidal Volume : 1000 Low Resp Rate: 8 High Resp Rate: 40 Apnea alarm (On/Off): On Apnea (secs): 20 secs Pulmonary Suctioning Suctioned?: Yes Suction Mode: Trach Catheter Size: 14 FR Secretion Consistency: Thick Secretion Color: Yellow;Gerard Secretions Amount: Large Hyperoxygenated prior to suctioning?: Yes Labs: CBC: Recent Labs Component Name 09/10/22 0443 09/09/22 0415 09/08/22 0437 WBC 7.8 7.4 9.9 HGB 9.3* 9.5* 10.2* BMP: Recent Labs Component Name 09/10/22 0443 09/09/22 0415 09/08/22 0437 NA 137 139 137 CL 106 104 103 CO2 28 26 29 BUN 19 18 12 CREATININE 0.43* 0.45* 0.48* CALCIUM 8.9 9.5 9.8 MAGNESIUM 1.8 1.7 1.8 PHOS 3.4 2.4* 3.6 LFT: Recent Labs Component Name 08/28/22 2224 08/28/22 1251 06/30/22 1039 PROT 6.0 7.5 6.2 ALB 2.0* 2.5* 2.2* ALKPHOS 67 88 65 AST 13 14 13 ALT 5 6 5 Coagulation: Recent Labs Component Name 08/28/22222306/27/22 2215 05/11/22 1309 PT 15.2* 12.8 13.5 INR 1.2 1.0 1.0 Cardiac markers: Recent Labs Component Name 07/11/22 0040 07/01/22 1634 06/28/22 0141 06/27/22 2215 05/30/22 1750 03/08/22 1455 12/31/21 0412 CKTOTAL 49 42 - - - - 77 TROPONINI - - <0.010 <0.010 <0.010 - - - = values in this interval not displayed. Microbiology: Microbiology Results (Displays last 21 days for this encounter ONLY) Procedure Component Value - Date/Time CULTURE SPUTUM+GRAM STAIN [[id number]] (Abnormal) (Susceptibility) Collected: 09/08/228 Lab Status: Preliminary result Specimen: Microbiology from Sputum Lower Resp Tract Updated: 09/10/22 0554 Culture Moderate Pseudomonas aeruginosa Moderate normal oropharyngeal domenico Gram Stain <10 per low power field Squamous epithelial cells >= 25 per low power field Polymorphonuclear cells Moderate Gram-negative bacilli Rare Gram-positive bacilli Susceptibility Pseudomonas aeruginosa (1) Antibiotic Interpretation Microscan Method Status Amikacin Susceptible <=2 ug/mL JELLY Final Cefepime Resistant >=64 ug/mL JELLY Final Ceftazidime Resistant >=64 ug/mL JELLY Final Ciprofloxacin Susceptible <=0.25 ug/mL JELLY Final Gentamicin Susceptible <=1 ug/mL JELLY Final Meropenem Susceptible 0.5 ug/mL JELLY Final Tobramycin Susceptible <=1 ug/mL JELLY Final CULTURE BLOOD [[id number]] (Normal) Collected: 08/30/22 0955 Lab Status: Final result Specimen: Blood Peripheral Updated: 09/04/22 1401 Culture No growth day 5 CULTURE BLOOD [[id number]] (Normal) Collected: 08/30/22 0940 Lab Status: Final result Specimen: Blood Peripheral Updated: 09/04/22 1401 Culture No growth day 5 CULTURE URINE [[id number]] (Abnormal) (Susceptibility) Collected: 08/29/22 0514 Lab Status: Final result Specimen: Urine Clean Catch Updated: 09/01/22 0049 Culture Urine 50,000-100,000 CFU/mL Pseudomonas aeruginosa 50,000-100,000 CFU/mL urogenital domenico Susceptibility Pseudomonas aeruginosa (3) Antibiotic Interpretation Microscan Method Status Amikacin Susceptible 4 ug/mL JELLY Final Cefepime Susceptible 4 ug/mL JELLY Final Ceftazidime Susceptible 4 ug/mL JELLY Final Ciprofloxacin Susceptible <=0.25 ug/mL JELLY Final Gentamicin Susceptible 2 ug/mL JELLY Final Meropenem Susceptible <=0.25 ug/mL JELLY Final Piperacillin-tazobactam Susceptible <=4 ug/mL JELLY Final Tobramycin Susceptible <=1 ug/mL JELLY Final CULTURE SPUTUM+GRAM STAIN [[id number]] (Abnormal) (Susceptibility) Collected: 08/29/22512 Lab Status: Final result Specimen: Microbiology from Sputum Suctioned Updated: 08/31/22 0249 Culture Moderate Pseudomonas aeruginosa Moderate Staphylococcus aureus methicillin-resistant (MRSA) Comment: Staphylococcus aureus methicillin-resistant (MRSA) detected by penicillin binding protein immunoassay. Contact precautions required. Conventional antibiotic susceptibility testing to follow. Moderate normal oropharyngeal domenico Gram Stain <10 per low power field Squamous epithelial cells >= 25 per low power field Polymorphonuclear cells Heavy Gram-positive cocci Moderate Gram-positive bacilli Narrative: Methicillin-resistant Staphylococci (MRSA) are resistant to all currently available beta-lactam antibiotics with the exception of the newer cephalosporins with anti-MRSA activity. Contact precautionsrequired. Susceptibility Pseudomonas aeruginosa (1) Antibiotic Interpretation Microscan Method Status Amikacin Susceptible <=2 ug/mL JELLY Final Cefepime Susceptible 2 ug/mL JELLY Final Ceftazidime Susceptible 8 ug/mL JELLY Final Ciprofloxacin Susceptible <=0.25 ug/mL JELLY Final Gentamicin Susceptible <=1 ug/mL JELLY Final Meropenem Susceptible <=0.25 ug/mL JELLY Final Piperacillin-tazobactam Intermediate 32 ug/mL JELLY Final Tobramycin Susceptible <=1 ug/mL JELLY Final Staphylococcus aureus methicillin-resistant (MRSA) (2) Antibiotic Interpretation Microscan Method Status Clindamycin Resistant 0.25 ug/mL JELLY Final Doxycycline Susceptible <=0.5 ug/mL JELLY Final Gentamicin Susceptible <=0.5 ug/mL JELLY Final Inducible Clindamycin Resistance Pos POS ug/mL JELLY Final Linezolid Susceptible 2 ug/mL JELLY Final Oxacillin Resistant >=4 ug/mL JELLY Final Tetracycline Susceptible <=1 ug/mL JELLY Final Trimethoprim-sulfamethoxazole Susceptible <=10 ug/mL JELLY Final Vancomycin Susceptible <=0.5 ug/mL JELLY Final Susceptibility Comments This isolate is presumed to be resistant to clindamycin on the basis of detection of inducible clindamycin resistance. MRSA DNA PCR [[id number]] (Abnormal) Collected: 08/28/22 1442 Lab Status: Final result Specimen: Microbiology from Nasal Updated: 08/28/22 195 MRSA DNA by PCR Detected Narrative: 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 CULTURE BLOOD [[id number]] (Abnormal) (Susceptibility) Collected: 08/28/22 1251 Lab Status: Final result Specimen: Blood Peripheral Updated: 08/31/22 1209 Culture Growth of Staphylococcus capitis Gram Stain Gram-positive cocci in clusters Narrative: Pos @ 18.5 hours Susceptibility Staphylococcus capitis (1) Antibiotic Interpretation Microscan Method Status Clindamycin Resistant >=4 ug/mL JELLY Final Doxycycline Susceptible <=0.5 ug/mL JELLY Final Gentamicin Susceptible <=0.5 ug/mL JELLY Final Inducible Clindamycin Resistance Neg NEG ug/mL JELLY Final Linezolid Susceptible 2 ug/mL JELLY Final Oxacillin Resistant >=4 ug/mL JELLY Final Tetracycline Susceptible <=1 ug/mL JELLY Final Trimethoprim-sulfamethoxazole Susceptible <=10 ug/mL JELLY Final Vancomycin Susceptible 1 ug/mL JELLY Final BCID PANEL [[id number]] (Abnormal) Collected: 08/28/22 1251 Lab Status: Final result Specimen: Blood Peripheral Updated: 08/29/22 1427 Staphylococcus species Detected Comment: Staphylococcus species (not S. aureus, S. lugdunensis, or S. epidermidis). Narrative: Blood Culture ID Panel performed by [employer] multiplex PCR. Test Panel includes: Antimicrobial Resistance Genes: Mec A/C and MREJ (methicillin-resistance gene-MRSA) and van A/B (vancomycin- resistance gene). Gram Positive Bacteria: Enterococcus faecalis, Enterococcus faecium, Staphylococcus (genus), Staphylococcus aureus, Staphylococcus epidermidis, Staphylococcus lugdunensis, Streptococcus (genus), Streptococcus agalactiae (Group B), Streptococcus pneumoniae, Streptococcus pyogenes (Group A). CULTURE BLOOD [[id number]] (Abnormal) Collected: 08/28/22 1238 Lab Status: Final result Specimen: Blood Peripheral Updated: 08/31/22 1051 Culture Growth of Staphylococcus capitis Gram Stain Gram-positive cocci in clusters Narrative: Positive @ 24 hours and 40 minutes Refer to previously reported susceptibility testing, specimen number: [id number] SARS-COV-2 (COVID-19)+INFLU A+B PCR RAPID [[id number]] (Normal) Collected: 08/28/22 1220 Lab Status: Final result Specimen: Microbiology from Nasopharyngeal Updated: 08/28/22 1308 COVID-19 PCR Not detected Influenza A Rapid [...] acid amplification assay performance was validated by [facility]. This test has been authorized [...] this EUA assay are available upon request. Imaging: Following images reviewed CT ANGIO CHEST PULM EMBOLISM Result Date: 09/08/2022 IMPRESSION: 1. No CT evidence of pulmonary embolism. 2. Debris and secretions within the in right main bronchus with worsening collapse of the right lower and middle lobe. There is increasing left toright mediastinal shift. The right upper lobe appears partially collapsed. There is dense consolidation within all 3 lobes of the right lung which likely a combination of atelectasis and aspiration. There is a right-sided pleural effusion. > Dictated by Quan Nguyễn MD. I, Eron Payton have personally reviewed and interpreted this examination/study. > Interpreting Provider: Eron Payton on 09/08/2022 10:21 AM Medications: Scheduled Medications ??? 0.9% NaCl 3 mL Intracatheter q8h ??? artificial tears Each Eye q8h ??? atorvastatin 40 mg Enteral Tube QDAY ??? chlorhexidine 15 mL Mouth/Throat BID ??? cloBAZam 20 mg Enteral Tube BID ??? divalproex sprinkle 500 mg Enteral Tube q6h ??? enoxaparin 40 mg Subcutaneous QDAY ??? guaiFENesin 10 mL Enteral Tube q6h ??? lacosamide 200 mg Enteral Tube BID ??? levalbuterol 1.25 mg Inhalation q6h ??? levETIRAcetam 2,000 mg Enteral Tube BID ??? meropenem 1,000 mg Intravenous q8h ??? polyethylene glycol 3350 17 g Enteral Tube BID ??? senna-docusate 1 tablet Enteral Tube BID ??? sodium chloride (Inhalant) 4 mL Inhalation BID ??? vancomycin 750 mg Intravenous q8h Continuous Medications PRN Medications ??? SALINE LOCK, INSERT AND MAINTAIN AND 0.9% NaCl AND 0.9% NaCl ASSESSMENT History of CVA (cerebrovascular accident) POA: Yes Paroxysmal tachycardia, unspecified (CMS/HCC) POA: Yes Seizure (CMS/HCC) POA: Yes Sepsis without acute organ dysfunction (CMS/HCC) POA: Yes Protein calorie malnutrition (CMS/HCC) POA: Yes Pulmonary infiltrate POA: Yes Acute on chronic respiratory failure with hypoxia (CMS/HCC) POA: Yes Tachycardia POA: Yes Tachypnea POA: Yes SOB (shortness of breath) POA: Yes PLAN: NEURO/PSYCH: #Seizure disorder -Home meds: Lacosamide 200 mg BID, levetiracetam 2000 mg BID, clobazam 20 mg BID -Divalproex 500 mg Q6H started on 08/30. Valproate level on 08/30 was <13 Plan: -Continue above #CVA Left sided residual deficits - c/w home statin CARDIO: No active issues. Most recent TTE on 08/30/2022 showed EF 58%, grade I DD, no vegetations PULM: Right-sided pleural effusion #AHRF #Mucus plugging #s/p tracheostomy -. Pt started on vancomycin and cefepime on admission. Sputum culture positive for MRSA and pseudomonas -No window on bedside thoracentesis on 08/30 -s/p antibiotics above with EOT on 09/03 -CXR on 09/04 shows persistent collapse of RLL. S/p bronchoscopy on 09/07, during which pt was oted tohave copious, thick secretions throughout the RUL, RML, and RL - Repeat sputum cx from 09/09 positive for pseudomonas resistant to cefepime Plan: -Continue levalbuterol nebulizers Q6H, hypertonic saline nebulizers BID, and guaifenesin 10 mL Q6H -Continue PSV - meropenem IV 1 g q8 h (total 7 days) GI: #Zenker diverticulum s/p diverticulectomy (06/2022) #Aspiration s/p PEG tube Plan: -Continue tube feeds with [facility] RENAL: MARI Electrolytes: Monitor chem 7 and Mg every 24 hours and replace Mg if less than1.8 or if K < 3.5 ENDOCRINE: BG goal 140-180 ID: #Staph capitis bacteremia #Pesudomonas UTI #MRSA and pseudomonas pneumonia #Leukocytosis -Blood cultures x2 from 08/28 positive for staph capitis. Unclear source at this time. Pt does not have CVC or arterial line -UA showed 2+ LE, 21-50 WBC, trace bacteria. Urine culture positive for pseudomonas -Sputum culture positive for MRSA and pseudomonas -Repeat blood cultures x2 from 08/30 showed no growth Plan: - IV meropenem for 7 days (09/10 - ) HEME/ONC: #Anemia #Thrombocytopenia Plan: -Continue to monitor. Transfuse for hemoglobin <7 or platelets <10 Transfusion Protocol: Hb < 7, Plt < 10 LDA: Peripheral IV Anterior;Right Forearm (Active) Placement Date/Time: 09/09/22 0000 Orientation: Anterior;Right Location: Forearm Name/Credentials of person who placed: k christianson IV Catheter Size: 20 Gauge Technique: Ultrasound Guidance Number of start attempts: 1 Local Anesthetic Used?: No... Number of days: 1 Enteral - Percutaneous Endoscopic Gastrostomy Abdomen;Midline;Upper (Active) Placement Date/Time: 03/25/22 1654 Name/Credentials of person who placed: Jolynn Ann MD Type: Percutaneous Endoscopic Gastrostomy Tube Location: Abdomen;Midline;Upper Size (FR): 24 Procedure Tolerance: Well Number of days: 168 Trach Shiley (Active) Placement Date/Time: 07/15/22 0943 Person who placed: DR CALLAHAN Brand: Christine Cuff Type: Air Trach size: 6 MM Inner Cannula Size: 7.5 FR Procedure Tolerance: General Anesthesia Number of days: 56 Trach Bivona (Active) No placement date or time found. Pre-existing airway in place from:: Outside Facility Brand: BivonaAirway Device: Cuffed Cuff Type: Water (Bivona) Number of days: External Urinary Device 09/01/22 1200 (Active) Placement Date/Time: 09/01/22 1200 Procedure Tolerance: Well Number of days: 8 Prophylaxis: DVT prophylaxis: [x] Lovenox 40mg , [] Lovenox 30mg, [] Sq Heparin GI prophylaxis: none Aspiration precautions with elevation of HOB by 30 degrees. Fluids: none Diet: DIET TUBE FEEDING CONTINUOUS DIET NPO Except: NO EXCEPTIONS Activity: Ad Merline Disposition: ICU Monitoring Code Status: Full Code Rhina Cohen MD Pulmonary & Critical Care Fellow, PGY-4 Division of Pulmonary, Critical Care and Sleep Medicine [facility] Associated attestation - Blair Bacon MD - 09/10/2022 2:30 PM CDT I have seen and examined the patient with the resident and I agree with the findings and plan of care as documented by the resident except as noted below: Had fever overnight, significant secretions, Pseudomonas on cultures from sputum, resistant to cefepime. Stop cefepime and vancomycin. Start Meropenem. Airway clearance with IPV and hypertonic saline. CXR as needed. Continue PSV for now. VAP bundle. Titrate O2 to keep asts > 88%. Continue AEDs per home meds. Will need LTACH placement. DVT ppx. I have updated his sister this morning at the bedside. Answered her questions. Date of service: 09/10/2022 Blair Bacon MD [employer] [facility] of Internal Medicine Division of Pulmonary, Critical Care and Sleep Medicine [facility] Pager: [phone] * Ashley Fam, RN - 09/09/2022 4:34 PM CDT Case Management Initial Assessment Anticipated Discharge Date: 09/14/22 Transportation at Discharge: Ambulance Anticipated level of care at discharge: Custodial - Medicaid, [facility] ([facility]) [facility] Prior to admission level of care: Custodial - Medicaid [facility] Discharge Goals and Plans: Patient Goals: return to prior level of assist Plans: Discharge needs identified. See progress notes for details. Case Management to follow for discharge planning. Comments: Patient is new to my service. This CM is covering this patient for today, 09/09/2022. Zarina ([phone]), clinical liaison for [place] [facility] is following patient for possible LTACH placement. Discharge needs dependent on the recommendations of the interdisciplinary team. Lives with: Other (Comment) (facility: [facility]) Physical Limitations: None Requires Assistance With: Mobility;Dressing;Toileting;Hygiene;Transfers;Housekeeping;Meal Preparatio n;Medication Administration;Shopping Preferred Pharmacy: [facility] - [address] [facility] [id number] [facility] [id number] Advance Directive: No Advance Directive Would you like assistance on completing and executing or revising an Advance Directive?: No READMISSION RISK SCORE is 27 at 4:34 PM 09/09/2022. Met with chart review Family Support (name and phone): Extended Emergency Contact Information Primary Emergency Contact: Adriane Pearson Mobile Relation: Sister Shop Mechanic needed? No Secondary Emergency Contact: Amarjit Tabor [facility] Relation: Brother Patient or account representative requests care coordination reach out to family or caregiver listed above regarding discharge planning and at time of discharge? No Patient/Family provided with list of resources? No Preferred Provider / High Quality Network List given?: No Reason for provider choice: Pt. choice - previous provider Equipment at Home: Facility Equipment Casting Tester Referral: No Will continue to follow. For any questions or needs please contact: Vice President Underwriting Name/Phone number: Ashley Fam RN [phone] * Elmo Caicedo SLP - 09/09/2022 3:00 PM CDT [facility] Department of Physical Medicine & Rehabilitation Progress Note Patient: Bi Tabor Med Record Number: [id number] Date of : 1960 Age: [age] year old 09/09/22 1600 Therapy on Hold Therapy on Hold Chart Reviewed;New Order Required for Therapy Patient on vent support at this time. Please re-consult ST when patient restarts trach collar trials. Elmo Ansari M.A., [facility]-REPORTING COORDINATOR Speech Language Pathologist [phone] * Jake Mosqueda MD - 09/09/2022 9:25 AM CDT [facility] 09/09/2022 9:25 AM Patient: Bi Tabor (:1960) Room[facility] Admit Date: 08/28/2022. Hospital Day: 12 CC: Acute on chronic hypoxic respiratory failure Hospital Course: Mr. Tabor is a 62-year-old male with PMHx of CVA with residual left-sided deficits, HTN, seizure disorder, dementia, dysphagia with recurrent aspiration s/p PEG tube, PVD s/p left AKA c/b non-healingfoot wound (02/2022), Zenker diverticulum s/p diverticulectomy (07/15/2022), chronic hypoxic respiratory failure s/p tracheostomy (07/15/2022) who presented to ED on 08/28/2022 with SOB. Pt was tachypneic with increased work of breathing. SNF did not have suction instruments, so he was brought to ED. In the ED, vitals were Temp 100.2 degrees, BP 133/87, HR 121, RR 27, SpO2 95% on 10 L. Labs showed WBC 15.4, hemoglobin 11.8, platelets 143, creatinine 0.51, troponin 10 --> 9, procalcitonin <0.02. UA showed 2+ LE, 21-50 WBC, trace bacteria. Blood cultures positive for gram- positive in clusters. CXR showed large right pleural effusion resulting in near complete collapse of the right lung and ill-defined/GGO of the remaining aerated portion of the RUL. Pt started on IV vancomycin and cefepime. MRSA PCR positive. Blood cultures x2 positive for staphylococcus capitis. Sputum culture positivefor MRSA and pseudomonas. Urine culture positive for pseudomonas. ID consulted. TTE without vegetations. Interval History: Pt placed on PSV yesterday afternoon and remained on the ventilator overnight. Since midnight, he is having recurrent apnea. Tmax was 100.3 degrees. Objective: Vitals: 09/09/22 0500 09/09/22 0512 09/09/22 0600 09/09/22 0800 BP: 125/87 124/84 Pulse: 98 97 105 Resp: 15 15 15 Temp: 99.1 ??F (37.3 ??C) SpO2: 96% 96% 96% Weight: Height: Physical Exam General - NAD, cachectic, apneic on the ventilator HEENT - NC/AT, EOMI Chest - On ventilator. Coarse breath sounds bilaterally CV - RRR. No murmurs Abdomen - PEG tube in LUQ Musculoskeletal - s/p right AKA Extremities - No clubbing, no cyanosis, no edema Skin - No rashes, lesions or jaundice Neurologic - CN II-XII grossly intact. No focal deficits Psych - Appropriate mood and affect Labs: CBC: Recent Labs Component Name 09/09/22 0415 09/08/22 0437 09/07/22 0304 WBC 7.4 9.9 6.5 HGB 9.5* 10.2* 9.9* HCT 29.6* 31.5* 31.1* BMP: Recent Labs Component Name 09/09/22 0415 09/08/22 0437 09/07/22 0304 NA 139 137 139 CL 104 103 103 CO2 26 29 29 BUN 18 12 13 CREATININE 0.45* 0.48* 0.45* CALCIUM 9.5 9.8 9.5 PHOS 2.4* 3.6 3.5 Hepatic: Recent Labs Component Name 08/28/22 2224 08/28/22 1251 06/30/22 1039 ALT 5 6 5 AST 13 14 13 TBILI 0.6 0.5 0.3 PROT 6.0 7.5 6.2 ALB 2.0* 2.5* 2.2* ALKPHOS 67 88 65 Coagulation: Recent Labs Component Name 08/28/22 2224 06/27/22 2215 05/11/22 1309 PT 15.2* 12.8 13.5 INR 1.2 1.0 1.0 Cardiac Markers: Recent Labs Component Name 07/11/22 0040 07/01/22 1634 06/28/22 0141 06/27/22 2215 05/30/22 1750 03/08/22 1455 12/31/21 0412 CKTOTAL 49 42 - - - - 77 TROPONINI - - <0.010 <0.010 <0.010 - - - = values in this interval not displayed. Micro: Reviewed. Imaging: Reviewed. Assessment: History of CVA (cerebrovascular accident) POA: Yes Paroxysmal tachycardia, unspecified (CMS/HCC) POA: Yes Seizure (CMS/HCC) POA: Yes Sepsis without acute organ dysfunction (CMS/HCC) POA: Yes Protein calorie malnutrition (CMS/HCC) POA: Yes Pulmonary infiltrate POA: Yes Acute on chronic respiratory failure with hypoxia (CMS/HCC) POA: Yes Tachycardia POA: Yes Tachypnea POA: Yes SOB (shortness of breath) POA: Yes PLAN: Neurological: #Seizure disorder -Home meds: Lacosamide 200 mg BID, levetiracetam 2000 mg BID, clobazam 20 mg BID -Divalproex 500 mg Q6H started on 08/30. Valproate level on 08/30 was <13 Plan: -Continue above Cardiovascular: No active issues. Most recent TTE on 08/30/2022 showed EF 58%, grade I DD, no vegetations Pulmonary: #Right-sided pleural effusion #AHRF #Mucus plugging #s/p tracheostomy -See presentation and workup above. Pt started on vancomycin and cefepime on admission. Sputum culture positive for MRSA and pseudomonas -No window on bedside thoracentesis on 08/30 -s/p antibiotics above with EOT on 09/03 -CXR on 09/04 shows persistent collapse of RLL. S/p bronchoscopy on 09/07, during which pt was oted tohave copious, thick secretions throughout the RUL, RML, and RL Plan: -Continue levalbuterol nebulizers Q6H, hypertonic saline nebulizers BID, and guaifenesin 10 mL Q6H -Continue PSV -Start vancomycin and cefepime. 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 Endocrine: BG goal 140-180. Hypoglycemia protocol ID: #Staph capitis bacteremia #Pesudomonas UTI #MRSA and pseudomonas pneumonia #Leukocytosis -Blood cultures x2 from 08/28 positive for staph capitis. Unclear source at this time. Pt does not have CVC or arterial line -UA showed 2+ LE, 21-50 WBC, trace bacteria. Urine culture positive for pseudomonas -Sputum culture positive for MRSA and pseudomonas -Repeat blood cultures x2 from 08/30 showed no growth Plan: -Management as above Heme/Onc: #Anemia #Thrombocytopenia Plan: -Continue to monitor. Transfuse for hemoglobin <7 or platelets <10 FEN: Monitor electrolytes and replete PRN Lines: Trach, PEG tube, PIV x1, condom catheter Prophylaxis: Aspiration precautions with HOB elevation by 30 degrees DVT prophyalxis with SCDs, enoxaparin Diet: Tube feeds Activity: Ambulate/up ad merline Disposition: ICU monitoring Code Status: Full code Jake Mosqueda MD Associated attestation - Blair Bacon MD - 09/09/2022 11:30 AM CDT I have seen and examined the patient with the resident and I agree with the findings and plan of care as documented by the resident except as noted below: Had mucous plugs 2 nights ago, now still some residual RLL collapse which appear to be chronic. Hadincrease secretions with mucous plugging. Low grade temp. Sputum gram stain +. I am ok with abx fornow and deescalate quickly based on cultures. Continue PSV for now. VAP bundle. Continue AEDs per home meds. Will need LTACH placement. Date of service: 09/09/2022 Blair Bacon MD [employer] [facility] Medicine Division of Pulmonary, Critical Care and Sleep Medicine [facility] Pager: [phone] * Jake Mosqueda MD - 09/08/2022 4:21 PM CDT Family Notification Documentation Contact made: 09/08/2022 4:21 PM Person(s) contacted: Adriane Pearson Method of communication: Phone Phone number: [phone] Summary of discussion Pt had recurrent mucous plugging overnight, which required bronchoscopy. He had to be placed back on the ventilator this afternoon. I updated Adriane with regards to this. There is a very good chance that pt is never able to have his tracheostomy removed. Adriane voiced understanding but would like to see how he does while on the ventilator. All questions answered. * Myrna Hammond - 09/08/2022 11:42 AM CDT Shell Sorter visited with patient and his two older sisters. Patient's sisters requested prayer. Shell Sorter prayed with patient and his sisters at bedside. Patient's sisters stated that patient has a strong jarett in God and regularly proclaims that God is good! Pastoral care remains available continuously. 439/01 Myrna Hammond 09/08/2022 11:44 AM * Melany Tran, RD/ONIN - 09/08/2022 9:28 AM CDT Initial Nutrition Assessment Brief Synopsis: Patient is at Nutrition Risk; Specific criteria can be found in assessment below Nutrition Plan: NPO Alter TF to below: Jevity 1.5 at 65 ml/hr+1 prostat packet Provides 2440 kcal, 114 g protein, 346 g carbohydrate, 1186 ml free water. +50 ml q 6 hrs free water flush or per MD if on IVF +100 ml q4 hrs free water flush or per MD if not on additional fluids Recommendations to Physician: Adjusted TF to above Comments: Pt scheduled for reassessment. Pt receiving TF at previous goal rate consistently. Pt diagnosed with malnutrition in previous RD visit. Noted that weight continues to trend down per EMR, increased TF rate to above with additional prostat packet. Last BM 09/07, RD to follow. 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 Height: 182.9 cm (6') Weight: 55 kg (121 lb 3.2 oz) (WEighed without SCD machine, boot, wedges) BMI: Body mass index is 16.44 kg/m??. BMI Range: Underweight IBW/lb (Calculated) Male: 178 , Recent Weights/Methods 07/19/2022 0400 07/20/2022 0400 08/20/2022 1346 08/28/2022 1101 08/29/2022 0529 09/04/2022 0357 09/05/2022 0500 09/08/2022 0500 Weight: 65.5 kg (144 lb 6.4 oz) 66 kg (145 lb 8.1 oz) 63.5 kg (140 lb) 63.5 kg (140 lb) 62 kg (136 lb 9.6 oz) 61.2 kg (135 lb) 56 kg (123 lb 6.4 oz) 55 kg (121 lb 3.2 oz) Weight Method (Utilize Scales): Bedscale Bedscale Estimated -- Bedscale Bedscale Bedscale Bedscale Wt Comments: reviewed, weight continues to trend down, -14# in last 2 weeks. (significant weight loss) Diet order accuracy Current diet order: NPO Current tube feeding order: Jevity 1.5 @60ml/hr Nutrition recommendation: alter/change nutrition order P.O.Intake for the past 48 hrs: No data recorded Food Allergies: No known food allergies GI Concerns: None Chewing/Swallowing: Dysphagia Pain affecting intake: No Estimated Needs: KCAL: 0189-1919 (30-35kcal/kg of ABW) Protein (g): 93-109 (20% of estimated needs) Fluid (ml): 1 ml/kcal Needs based on: Kcal/kg- (Comment) Recommended Access Route: TF Laboratory values: Recent Labs Component Name 09/08/22 0437 09/07/22 0304 09/06/22 0524 08/30/22 0039 08/28/22 2224 08/28/22 1251 07/01/22 1634 06/30/22 1039 BUN 12 13 13 - 11 12 - 7 CREATININE 0.48* 0.45* 0.43* - 0.50* 0.51* - 0.58* NA 137 139 138 - 142 139 - 140 POTASSIUM 4.7* 4.5 4.5 - 3.9 4.5 - 4.0 CL 103 103 103 - 111* 103 - 107 CO2 29 29 29 - 24 27 - 24 GLUCOSE 120* 116* 86 - 86 100 - 115 CALCIUM 9.8 9.5 9.5 - 8.8 9.8 - 9.5 PROT - - - - 6.0 7.5 - 6.2 ALB - - - - 2.0* 2.5* - 2.2* TBILI - - - - 0.6 0.5 - 0.3 ALKPHOS - - - - 67 88 - 65 ALT - - - - 5 6 - 5 AST - - - - 13 14 - 13 ANIONGAP 10 12 11 - 11 14 - 13 BCR 25* 29* 30* - 22 24* - 12 OSMOLALITY 285 289 285 - 293 288 - 289 AGRATIO - - - - 0.5* 0.5* - 0.6* EGFR >90 >90 >90 - >90 >90 - >90 - = values in this interval not displayed. Medications: Current Facility-Administered Medications Medication ??? 0.9% NaCl injection 3 mL And ??? 0.9% NaCl injection 1-10 mL ??? artificial tears ophthalmic ointment ??? atorvastatin [...] ??? levETIRAcetam (Keppra) tablet 2,000 mg ??? polyethylene glycol 3350 (Miralax) packet 17 g ??? senna-docusate (Senokot-S) tablet 1 tablet Skin/Wound: WDL Nutrition Care Process (1) Nutrition Diagnostic Statement: Inadequate protein-energy intake related to:: decreased ability to consume or tolerate adequate food and/or fluids due to illness;swallowing difficulty as evidenced by:: estimated intake insufficient to meet requirements;BMI less than 19;unintentionalweight loss Nutrition Diagnostic Statement Progress: Nutrition problem continues Nutrition Intervention: Enteral nutrition: Monitoring: GI, TF, WT, labs, medications Evaluation: Nutrition Goal: Total intake will meet estimated nutrient needs Nutrition Goal Timeframe: Throughout stay Nutrition Goal Progress: Continue with current goal Ascom [id number] * Jake Mosqueda MD - 09/08/2022 8:22 AM CDT MICU Progress Note 09/08/2022 8:22 AM Patient: Bi Tabor (:1960) Room: 439/01 Admit Date: 08/28/2022. Hospital Day: 11 CC: Acute on chronic hypoxic respiratory failure Hospital Course: Mr. Tabor is a 62-year-old male with PMHx of CVA with residual left-sided deficits, HTN, seizure disorder, dementia, dysphagia with recurrent aspiration s/p PEG tube, PVD s/p left AKA c/b non-healingfoot wound (02/2022), Zenker diverticulum s/p diverticulectomy (07/15/2022), chronic hypoxic respiratory failure s/p tracheostomy (07/15/2022) who presented to ED on 08/28/2022 with SOB. Pt was tachypneic with increased work of breathing. SNF did not have suction instruments, so he was brought to ED. In the ED, vitals were Temp 100.2 degrees, BP 133/87, HR 121, RR 27, SpO2 95% on 10 L. Labs showed WBC 15.4, hemoglobin 11.8, platelets 143, creatinine 0.51, troponin 10 --> 9, procalcitonin <0.02. UA showed 2+ LE, 21-50 WBC, trace bacteria. Blood cultures positive for gram- positive in clusters. CXR showed large right pleural effusion resulting in near complete collapse of the right lung and ill-defined/GGO of the remaining aerated portion of the RUL. Pt started on IV vancomycin and cefepime. MRSA PCR positive. Blood cultures x2 positive for staphylococcus capitis. Sputum culture positivefor MRSA and pseudomonas. Urine culture positive for pseudomonas. ID consulted. TTE without vegetations. Interval History: Pt tachycardic to the 120s yesterday. CT angio chest PE no PE but findings suggestive of aspiration. He underwent bronchoscopy and was noted to have copious, thick secretions throughout the RUL, RML,and RLL. No other events overnight. Pt remains on trach collar. Objective: Vitals: 09/08/22 0300 09/08/22 0400 09/08/22 0500 09/08/22 0600 BP: 106/76 85/63 102/71 Pulse: (!) 126 (!) 122 (!) 124 (!) 122 Resp: (!) 36 28 19 29 Temp: 98.8 ??F (37.1 ??C) SpO2: 93% 93% 94% (!) 88% Weight: 55 kg (121 lb 3.2 oz) Height: Physical Exam General - NAD, cachectic, able to answer questions and follow commands HEENT - NC/AT, EOMI Chest - On trach collar. Coarse breath sounds bilaterally CV - RRR. No murmurs Abdomen - PEG tube in LUQ Musculoskeletal - s/p right AKA Extremities - No clubbing, no cyanosis, no edema Skin - No rashes, lesions or jaundice Neurologic - CN II-XII grossly intact. No focal deficits Psych - Appropriate mood and affect Labs: CBC: Recent Labs Component Name 09/08/2243609/07/22 0304 09/06/22 0524 WBC 9.9 6.5 6.5 HGB 10.2* 9.9* 9.4* HCT 31.5* 31.1* 29.4* BMP: Recent Labs Component Name 09/08/22 04309/07/22 0304 09/06/22 0524 NA 137 139 138 CL 103 103 103 CO2 29 29 29 BUN 12 13 13 CREATININE 0.48* 0.45* 0.43* CALCIUM 9.8 9.5 9.5 PHOS 3.6 3.5 3.8 Hepatic: Recent Labs Component Name 08/28/224 08/28/22 1251 06/30/22 1039 ALT 5 6 5 AST 13 14 13 TBILI 0.6 0.5 0.3 PROT 6.0 7.5 6.2 ALB 2.0* 2.5* 2.2* ALKPHOS 67 88 65 Coagulation: Recent Labs Component Name 08/28/22 22206/27/22 2215 05/11/22 1309 PT 15.2* 12.8 13.5 INR 1.2 1.0 1.0 Cardiac Markers: Recent Labs Component Name 07/11/22 0040 07/01/22 1634 06/28/22 0141 06/27/22 2215 05/30/22 1750 03/08/22 1455 12/31/21 0412 CKTOTAL 49 42 - - - - 77 TROPONINI - - <0.010 <0.010 <0.010 - - - = values in this interval not displayed. Micro: Reviewed. Imaging: Reviewed. Assessment: History of CVA (cerebrovascular accident) POA: Yes Paroxysmal tachycardia, unspecified (CMS/HCC) POA: Yes Seizure (CMS/HCC) POA: Yes Sepsis without acute organ dysfunction (CMS/HCC) POA: Yes Protein calorie malnutrition (CMS/HCC) POA: Yes Pulmonary infiltrate POA: Yes Acute on chronic respiratory failure with hypoxia (CMS/HCC) POA: Yes Tachycardia POA: Yes Tachypnea POA: Yes SOB (shortness of breath) POA: Yes PLAN: Neurological: #Seizure disorder -Home meds: Lacosamide 200 mg BID, levetiracetam 2000 mg BID, clobazam 20 mg BID -Divalproex 500 mg Q6H started on 08/30. Valproate level on 08/30 was <13 Plan: -Continue above Cardiovascular: No active issues. Most recent TTE on 08/30/2022 showed EF 58%, grade I DD, no vegetations Pulmonary: #Right-sided pleural effusion #AHRF #Mucus plugging #s/p tracheostomy -See presentation and workup above. Pt started on vancomycin and cefepime on admission. Sputum culture positive for MRSA and pseudomonas -No window on bedside thoracentesis on 08/30 -s/p antibiotics above with EOT on 09/03 -CXR on 09/04 shows persistent collapse of RLL. S/p bronchoscopy on 09/07, during which pt was oted tohave copious, thick secretions throughout the RUL, RML, and RL Plan: -Continue levalbuterol nebulizers Q6H, hypertonic saline nebulizers BID, and guaifenesin 10 mL Q6H -Place back on PSV 10/04 with repeat CXR tomorrow morning GI: #Zenker diverticulum s/p diverticulectomy (06/2022) #Aspiration s/p PEG tube Plan: -Continue tube feeds with [facility]WF Renal: No active issues. Endocrine: BG goal 140-180. Hypoglycemia protocol ID: #Staph capitis bacteremia #Pesudomonas UTI #MRSA and pseudomonas pneumonia #Leukocytosis -Blood cultures x2 from 08/28 positive for staph capitis. Unclear source at this time. Pt does not have CVC or arterial line -UA showed 2+ LE, 21-50 WBC, trace bacteria. Urine culture positive for pseudomonas -Sputum culture positive for MRSA and pseudomonas -Repeat blood cultures x2 from 08/30 showed no growth Plan: -s/p treatment as above Heme/Onc: #Anemia #Thrombocytopenia Plan: -Continue to monitor. Transfuse for hemoglobin <7 or platelets <10 FEN: Monitor electrolytes and replete PRN Lines: Trach, PEG tube, PIV x1, condom catheter Prophylaxis: Aspiration precautions with HOB elevation by 30 degrees DVT prophyalxis with SCDs, enoxaparin Diet: Tube feeds Activity: Ambulate/up ad merline Disposition: ICU monitoring Code Status: Full code Jake Mosqueda MD Associated attestation - Juan Diego Garcia MD - 09/08/2022 4:41 PM CDT I have seen, examined and discussed the patient with the fellow and I agree with the the findings and plan of care/recommendations as documented by the fellow. Date of service: 09/08/2022 Juan Diego Garcia M.D. [employer] Leader of Internal Medicine Division of Pulmonary, Critical Care and Sleep Medicine [facility] * Meggan Peace RCP - 09/08/2022 4:15 AM CDT RT at bedside to assist for bronchoscopy. Patient placed on 100% FIO2 prior to procedure. Patient had large amounts of secretions suctioned during procedure. Sample was obtained and sent to lab. Patient tolerated procedure well. Patient FIO2 changed back to previous setting. * Iggy Rodriguez - 09/07/2022 11:27 AM CDT ASHWIN spoke with ALFRED Esquivel at [facility]. She states Pt will need weaned down to 6 L through his trach collar prior to returning. Pt also cannot require suctioning more than 2x per shift. Per RN,Pt required suctioning 3x overnight but has only needed suction once so far today. MICU3 updated. ASHWIN will continue to follow. Iggy Rodriguez, WEB MARKETING SPECIALIST [phone] * Jake Mosqueda MD - 09/07/2022 8:14 AM CDT MICU Progress Note 09/07/2022 8:14 AM Patient: Bi Tabor (:1960) Room: [facility] Admit Date: 08/28/2022. Hospital Day: 10 CC: Acute on chronic hypoxic respiratory failure Hospital Course: Mr. Tabor is a 62-year-old male with PMHx of CVA with residual left-sided deficits, HTN, seizure disorder, dementia, dysphagia with recurrent aspiration s/p PEG tube, PVD s/p left AKA c/b non-healingfoot wound (02/2022), Zenker diverticulum s/p diverticulectomy (07/15/2022), chronic hypoxic respiratory failure s/p tracheostomy (07/15/2022) who presented to ED on 08/28/2022 with SOB. Pt was tachypneic with increased work of breathing. SNF did not have suction instruments, so he was brought to ED. In the ED, vitals were Temp 100.2 degrees, BP 133/87, HR 121, RR 27, SpO2 95% on 10 L. Labs showed WBC 15.4, hemoglobin 11.8, platelets 143, creatinine 0.51, troponin 10 --> 9, procalcitonin <0.02. UA showed 2+ LE, 21-50 WBC, trace bacteria. Blood cultures positive for gram- positive in clusters. CXR showed large right pleural effusion resulting in near complete collapse of the right lung and ill-defined/GGO of the remaining aerated portion of the RUL. Pt started on IV vancomycin and cefepime. MRSA PCR positive. Blood cultures x2 positive for staphylococcus capitis. Sputum culture positivefor MRSA and pseudomonas. Urine culture positive for pseudomonas. ID consulted. TTE without vegetations. Interval History: No acute events overnight. Pt remains on trach collar this morning. Objective: Vitals: 09/07/22 0400 09/07/22 0556 09/07/22 0600 09/07/22 0700 BP: 111/71 100/75 106/66 Pulse: (!) 110 100 104 (!) 110 Resp: 25 28 24 Temp: SpO2: 93% 98% 99% 96% Weight: Height: Physical Exam General - NAD, cachectic, able to answer questions and follow commands HEENT - NC/AT, EOMI Chest - On trach collar. Coarse breath sounds bilaterally CV - RRR. No murmurs Abdomen - PEG tube in LUQ Musculoskeletal - s/p right AKA Extremities - No clubbing, no cyanosis, no edema Skin - No rashes, lesions or jaundice Neurologic - CN II-XII grossly intact. No focal deficits Psych - Appropriate mood and affect Labs: CBC: Recent Labs Component Name 09/07/22 03009/06/22 0509/05/22 0219 WBC 6.5 6.5 6.3 HGB 9.9* 9.4* 8.7* HCT 31.1* 29.4* 26.8* BMP: Recent Labs Component Name 09/07/2230309/06/22 0524 09/05/22 0219 NA 139 138 139 CL 103 103 106 CO2 29 29 29 BUN 13 13 11 CREATININE 0.45* 0.43* 0.44* CALCIUM 9.5 9.5 9.2 PHOS 3.5 3.8 2.6* Hepatic: Recent Labs Component Name 08/28/224 08/28/22 1251 06/30/22 1039 ALT 5 6 5 AST 13 14 13 TBILI 0.6 0.5 0.3 PROT 6.0 7.5 6.2 ALB 2.0* 2.5* 2.2* ALKPHOS 67 88 65 Coagulation: Recent Labs Component Name 08/28/22222306/27/22 2215 05/11/22 1309 PT 15.2* 12.8 13.5 INR 1.2 1.0 1.0 Cardiac Markers: Recent Labs Component Name 07/11/22 0040 07/01/22 1634 06/28/22 0141 06/27/22 2215 05/30/22 1750 03/08/22 1455 12/31/21 0412 CKTOTAL 49 42 - - - - 77 TROPONINI - - <0.010 <0.010 <0.010 - - - = values in this interval not displayed. Micro: Reviewed. Imaging: Reviewed. Assessment: History of CVA (cerebrovascular accident) POA: Yes Paroxysmal tachycardia, unspecified (CMS/HCC) POA: Yes Seizure (CMS/HCC) POA: Yes Sepsis without acute organ dysfunction (CMS/HCC) POA: Yes Protein calorie malnutrition (CMS/HCC) POA: Yes Pulmonary infiltrate POA: Yes Acute on chronic respiratory failure with hypoxia (CMS/HCC) POA: Yes Tachycardia POA: Yes Tachypnea POA: Yes SOB (shortness of breath) POA: Yes PLAN: Neurological: #Seizure disorder -Home meds: Lacosamide 200 mg BID, levetiracetam 2000 mg BID, clobazam 20 mg BID -Divalproex 500 mg Q6H started on 08/30. Valproate level on 08/30 was <13 Plan: -Continue above Cardiovascular: No active issues. Most recent TTE on 08/30/2022 showed EF 58%, grade I DD, no vegetations Pulmonary: #Right-sided pleural effusion #AHRF #s/p tracheostomy -See presentation and workup above. Pt started on vancomycin and cefepime on admission. Sputum culture positive for MRSA and pseudomonas -No window on bedside thoracentesis on 08/30 -CXR on 09/04 shows persistent collapse of RLL Plan: -s/p antibiotics above with EOT on 09/03. Pt is also on levalbuterol nebulizers Q6H PRN and guaifenesin 10 mL Q6H -Continue trach collar. Wean as able -Check ABG GI: #Zenker diverticulum s/p diverticulectomy (06/2022) #Aspiration s/p PEG tube Plan: -Continue tube feeds with [facility] Renal: No active issues. Endocrine: BG goal 140-180. Hypoglycemia protocol ID: #Staph capitis bacteremia #Pesudomonas UTI #MRSA and pseudomonas pneumonia #Leukocytosis -Blood cultures x2 from 08/28 positive for staph capitis. Unclear source at this time. Pt does not have CVC or arterial line -UA showed 2+ LE, 21-50 WBC, trace bacteria. Urine culture positive for pseudomonas -Sputum culture positive for MRSA and pseudomonas -Repeat blood cultures x2 from 08/30 showed no growth Plan: -s/p treatment as above Heme/Onc: #Anemia #Thrombocytopenia Plan: -Continue to monitor. Transfuse for hemoglobin <7 or platelets <10 FEN: Monitor electrolytes and replete PRN Lines: Trach, PEG tube, PIV x1, condom catheter Prophylaxis: Aspiration precautions with HOB elevation by 30 degrees DVT prophyalxis with SCDs, enoxaparin Diet: Tube feeds Activity: Ambulate/up ad merline Disposition: ICU monitoring Code Status: Full code Jake Mosqueda MD Associated attestation - Juan Diego Garcia MD - 09/07/2022 6:40 PM CDT I have seen, examined and discussed the patient with the fellow and I agree with the the findings and plan of care/recommendations as documented by the fellow. Date of service: 09/07/2022 Juan Diego Garcia M.D. Re[employer] Leader of Internal Medicine Division of Pulmonary, Critical Care and Sleep Medicine [facility] * Iggy Rodriguez - 09/06/2022 3:55 PM CDT ASHWIN was notified by [facility] that Pt is expected to be medically ready for d/c back to [facility] tomorrow. ASHWIN called and spoke with Daina, in admission, at [facility]. SW inquired about Pt prior O2 requirement and if they are able to manage Pt on 8L O2 at 40% FiO2. She was unsure and stated her trach care nurse was not in the building today. She will discuss with the [facility] care nurse tomorrow and call SW back. CLARITA Carson [phone] * Myrna Hammond - 09/06/2022 11:51 AM CDT Shell Sorter visited with patient's sister. Patient was sleeping.Patient's sister wanted to talk with his RN. RN approached and spoke with patient's sister. Patient's sister needed to leave for work and expressed no additional pastoral care needs at this time. Shell Sorter assured her of the continued presence of pastoral care. 4301/[id number] Myrna Hammond 09/06/2022 11:57 AM * Jake Mosqueda MD - 09/06/2022 8:29 AM CDT MICU Progress Note 09/06/2022 8:29 AM Patient: Bi Tabor (:1960) Room: [facility] Admit Date: 08/28/2022. Hospital Day: 9 CC: Acute on chronic hypoxic respiratory failure Hospital Course: Mr. Tabor is a 62-year-old male with PMHx of CVA with residual left-sided deficits, HTN, seizure disorder, dementia, dysphagia with recurrent aspiration s/p PEG tube, PVD s/p left AKA c/b non-healingfoot wound (02/2022), Zenker diverticulum s/p diverticulectomy (07/15/2022), chronic hypoxic respiratory failure s/p tracheostomy (07/15/2022) who presented to ED on 08/28/2022 with SOB. Pt was tachypneic with increased work of breathing. SNF did not have suction instruments, so he was brought to ED. In the ED, vitals were Temp 100.2 degrees, BP 133/87, HR 121, RR 27, SpO2 95% on 10 L. Labs showed WBC 15.4, hemoglobin 11.8, platelets 143, creatinine 0.51, troponin 10 --> 9, procalcitonin <0.02. UA showed 2+ LE, 21-50 WBC, trace bacteria. Blood cultures positive for gram- positive in clusters. CXR showed large right pleural effusion resulting in near complete collapse of the right lung and ill-defined/GGO of the remaining aerated portion of the RUL. Pt started on IV vancomycin and cefepime. MRSA PCR positive. Blood cultures x2 positive for staphylococcus capitis. Sputum culture positivefor MRSA and pseudomonas. Urine culture positive for pseudomonas. ID consulted. TTE without vegetations. Interval History: No acute events overnight. Pt was on PSV yesterday and overnight, which he tolerated well. Objective: Vitals: 09/06/22 0400 09/06/22 0500 09/06/22 0600 09/06/22 0800 BP: 119/81 118/76 89/63 Pulse: 90 93 92 Resp: 18 16 17 Temp: 97.4 ??F (36.3 ??C) 97.9 ??F (36.6 ??C) SpO2: 98% 100% 98% Weight: Height: Physical Exam General - NAD, cachectic, able to answer questions and follow commands HEENT - NC/AT, EOMI Chest - On PSV. Coarse breath sounds bilaterally CV - RRR. No murmurs Abdomen - PEG tube in LUQ Musculoskeletal - s/p right AKA Extremities - No clubbing, no cyanosis, no edema Skin - No rashes, lesions or jaundice Neurologic - CN II-XII grossly intact. No focal deficits Psych - Appropriate mood and affect Labs: CBC: Recent Labs Component Name 09/06/22 0524 09/05/22 0219 09/04/22 0340 WBC 6.5 6.3 6.4 HGB 9.4* 8.7* 8.7* HCT 29.4* 26.8* 27.7* BMP: Recent Labs Component Name 09/06/22 0524 09/05/22 0219 09/04/22 0340 NA 138 139 142 CL 103 106 108* CO2 29 29 29 BUN 13 11 11 CREATININE 0.43* 0.44* 0.32* CALCIUM 9.5 9.2 9.5 PHOS 3.8 2.6* 2.8 Hepatic: Recent Labs Component Name 08/28/22222308/28/22 1251 06/30/22 1039 ALT 5 6 5 AST 13 14 13 TBILI 0.6 0.5 0.3 PROT 6.0 7.5 6.2 ALB 2.0* 2.5* 2.2* ALKPHOS 67 88 65 Coagulation: Recent Labs Component Name 08/28/22222306/27/22221405/11/22 1309 PT 15.2* 12.8 13.5 INR 1.2 1.0 1.0 Cardiac Markers: Recent Labs Component Name 07/11/22 0040 07/01/22 1634 06/28/22 0141 06/27/22221401/23 1750 03/08/22 1455 12/31/21 0412 CKTOTAL 49 42 - - - - 77 TROPONINI - - <0.010 <0.010 <0.010 - - - = values in this interval not displayed. Micro: Reviewed. Imaging: Reviewed. Assessment: History of CVA (cerebrovascular accident) POA: Yes Paroxysmal tachycardia, unspecified (CMS/HCC) POA: Yes Seizure (CMS/HCC) POA: Yes Sepsis without acute organ dysfunction (CMS/HCC) POA: Yes Protein calorie malnutrition (CMS/HCC) POA: Yes Pulmonary infiltrate POA: Yes Acute on chronic respiratory failure with hypoxia (CMS/HCC) POA: Yes Tachycardia POA: Yes Tachypnea POA: Yes SOB (shortness of breath) POA: Yes PLAN: Neurological: #Seizure disorder -Home meds: Lacosamide 200 mg BID, levetiracetam 2000 mg BID, clobazam 20 mg BID -Divalproex 500 mg Q6H started on 08/30. Valproate level on 08/30 was <13 Plan: -Continue above Cardiovascular: No active issues. Most recent TTE on 08/30/2022 showed EF 58%, grade I DD, no vegetations Pulmonary: #Right-sided pleural effusion #AHRF #s/p tracheostomy -See presentation and workup above. Pt started on vancomycin and cefepime on admission. Sputum culture positive for MRSA and pseudomonas -No window on bedside thoracentesis on 08/30 -CXR on 09/04 shows persistent collapse of RLL Plan: -s/p antibiotics above with EOT on 09/03. Pt is also on levalbuterol nebulizers Q6H PRN, and guaifenesin 10 mL Q6H -Transition back to trach collar today. 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 Endocrine: BG goal 140-180. Hypoglycemia protocol ID: #Staph capitis bacteremia #Pesudomonas UTI #MRSA and pseudomonas pneumonia #Leukocytosis -Blood cultures x2 from 08/28 positive for staph capitis. Unclear source at this time. Pt does not have CVC or arterial line -UA showed 2+ LE, 21-50 WBC, trace bacteria. Urine culture positive for pseudomonas -Sputum culture positive for MRSA and pseudomonas -Repeat blood cultures x2 from 08/30 showed no growth Plan: -s/p treatment as above Heme/Onc: #Anemia #Thrombocytopenia Plan: -Continue to monitor. Transfuse for hemoglobin <7 or platelets <10 FEN: Monitor electrolytes and replete PRN Lines: Trach, PEG tube, PIV x1, condom catheter Prophylaxis: Aspiration precautions with HOB elevation by 30 degrees DVT prophyalxis with SCDs, enoxaparin Diet: Tube feeds Activity: Ambulate/up ad merline Disposition: ICU monitoring Code Status: Full code Jake Mosqueda MD Associated attestation - Juan Diego Garcia MD - 09/06/2022 7:45 PM CDT I have seen, examined and discussed the patient with the fellow and I agree with the the findings and plan of care/recommendations as documented by the fellow. Date of service: 09/06/2022 Juan Diego Garcia M.D. Recreation Leader of Internal Medicine Division of Pulmonary, Critical Care and Sleep Medicine [facility] * Jake Mosqueda MD - 09/05/2022 9:53 AM CDT MICU Progress Note 09/05/2022 9:53 AM Patient: Bi Tabor (:1960) Room: [facility] Admit Date: 08/28/2022. Hospital Day: 8 CC: Acute on chronic hypoxic respiratory failure Hospital Course: Mr. Tabor is a 62-year-old male with PMHx of CVA with residual left-sided deficits, HTN, seizure disorder, dementia, dysphagia with recurrent aspiration s/p PEG tube, PVD s/p left AKA c/b non-healingfoot wound (02/2022), Zenker diverticulum s/p diverticulectomy (07/15/2022), chronic hypoxic respiratory failure s/p tracheostomy (07/15/2022) who presented to ED on 08/28/2022 with SOB. Pt was tachypneic with increased work of breathing. SNF did not have suction instruments, so he was brought to ED. In the ED, vitals were Temp 100.2 degrees, BP 133/87, HR 121, RR 27, SpO2 95% on 10 L. Labs showed WBC 15.4, hemoglobin 11.8, platelets 143, creatinine 0.51, troponin 10 --> 9, procalcitonin <0.02. UA showed 2+ LE, 21-50 WBC, trace bacteria. Blood cultures positive for gram- positive in clusters. CXR showed large right pleural effusion resulting in near complete collapse of the right lung and ill-defined/GGO of the remaining aerated portion of the RUL. Pt started on IV vancomycin and cefepime. MRSA PCR positive. Blood cultures x2 positive for staphylococcus capitis. Sputum culture positivefor MRSA and pseudomonas. Urine culture positive for pseudomonas. ID consulted. TTE without vegetations. Interval History: No acute events overnight. Pt has been afebrile. He is on 4 L trach collar this morning and is overall doing well. Objective: Vitals: 09/05/22 0600 09/05/22 0610 09/05/22 0700 09/05/22 0800 BP: 99/64 119/78 113/70 Pulse: 92 89 92 94 Resp: 24 18 19 Temp: 97.4 ??F (36.3 ??C) SpO2: 96% 98% 98% 97% Weight: Height: Physical Exam General - NAD, cachectic, able to answer questions and follow commands HEENT - NC/AT, EOMI Chest - On trach collar. Coarse breath sounds bilaterally CV - RRR. No murmurs Abdomen - PEG tube in LUQ Musculoskeletal - s/p right AKA Extremities - No clubbing, no cyanosis, no edema Skin - No rashes, lesions or jaundice Neurologic - CN II-XII grossly intact. No focal deficits Psych - Appropriate mood and affect Labs: CBC: Recent Labs Component Name 09/05/22 0219 09/04/22 0340 09/03/22 0256 WBC 6.3 6.4 5.6 HGB 8.7* 8.7* 8.7* HCT 26.8* 27.7* 27.3* BMP: Recent Labs Component Name 09/05/22 0219 09/04/22 0340 09/03/22 0256 NA 139 142 143 CL 106 108* 109* CO2 29 29 27 BUN 11 11 10 CREATININE 0.44* 0.32* 0.35* CALCIUM 9.2 9.5 8.8 PHOS 2.6* 2.8 3.5 Hepatic: Recent Labs Component Name 08/28/22 2224 08/28/22 1251 06/30/22 1039 ALT 5 6 5 AST 13 14 13 TBILI 0.6 0.5 0.3 PROT 6.0 7.5 6.2 ALB 2.0* 2.5* 2.2* ALKPHOS 67 88 65 Coagulation: Recent Labs Component Name 08/28/22222306/27/22 2215 05/11/22 1309 PT 15.2* 12.8 13.5 INR 1.2 1.0 1.0 Cardiac Markers: Recent Labs Component Name 07/11/22 0040 07/01/22 1634 06/28/22 0141 06/27/22 2215 05/30/22 1750 03/08/22 1455 12/31/21 0412 CKTOTAL 49 42 - - - - 77 TROPONINI - - <0.010 <0.010 <0.010 - - - = values in this interval not displayed. Micro: Reviewed. Imaging: Reviewed. Assessment: History of CVA (cerebrovascular accident) POA: Yes Paroxysmal tachycardia, unspecified (CMS/HCC) POA: Yes Seizure (CMS/HCC) POA: Yes Sepsis without acute organ dysfunction (CMS/HCC) POA: Yes Protein calorie malnutrition (CMS/HCC) POA: Yes Pulmonary infiltrate POA: Yes Acute on chronic respiratory failure with hypoxia (CMS/HCC) POA: Yes Tachycardia POA: Yes Tachypnea POA: Yes SOB (shortness of breath) POA: Yes PLAN: Neurological: #Seizure disorder -Home meds: Lacosamide 200 mg BID, levetiracetam 2000 mg BID, clobazam 20 mg BID -Divalproex 500 mg Q6H started on 08/30. Valproate level on 08/30 was <13 Plan: -Continue above Cardiovascular: No active issues. Most recent TTE on 08/30/2022 showed EF 58%, grade I DD, no vegetations Pulmonary: #Right-sided pleural effusion #AHRF #s/p tracheostomy -See presentation and workup above. Pt started on vancomycin and cefepime on admission. Sputum culture positive for MRSA and pseudomonas -No window on bedside thoracentesis on 08/30 -CXR on 09/04 shows persistent collapse of RLL Plan: -s/p antibiotics above with EOT on 09/03. Pt is also on levalbuterol nebulizers Q6H PRN, and guaifenesin 10 mL Q6H. Discontinue hypertonic saline nebulizer BID and NAC 600 mg BID -Place pt on PSV 10/04 until tomorrow with repeat CXR on 09/06. If no improvement, he may need bronchoscopy GI: #Zenker diverticulum s/p diverticulectomy (06/2022) #Aspiration s/p PEG tube Plan: -Continue tube feeds with FWF Renal: No active issues. Endocrine: BG goal 140-180. Hypoglycemia protocol ID: #Staph capitis bacteremia #Pesudomonas UTI #MRSA and pseudomonas pneumonia #Leukocytosis -Blood cultures x2 from 08/28 positive for staph capitis. Unclear source at this time. Pt does not have CVC or arterial line -UA showed 2+ LE, 21-50 WBC, trace bacteria. Urine culture positive for pseudomonas -Sputum culture positive for MRSA and pseudomonas -Repeat blood cultures x2 from 08/30 showed no growth Plan: -s/p treatment as above Heme/Onc: #Anemia #Thrombocytopenia Plan: -Continue to monitor. Transfuse for hemoglobin <7 or platelets <10 FEN: Monitor electrolytes and replete PRN Lines: Trach, PEG tube, PIV x1, condom catheter Prophylaxis: Aspiration precautions with HOB elevation by 30 degrees GI prophyalxis with pantoprazole DVT prophyalxis with SCDs, enoxaparin Diet: Tube feeds Activity: Ambulate/up ad merline Disposition: TTF Code Status: Full code Jake Mosqueda MD Associated attestation - Blair Bacon MD - 09/05/2022 10:32 AM CDT I have seen and examined the patient with the resident and I agree with the findings and plan of care as documented by the resident except as noted below: Repeat chest x-ray with persistent collapse of the right lower lobe. I have reviewed his prior imaging, this right lower lobe has been collapsed since 08/16. I am not sure if it will open up. We will put him on the ventilator with positive pressure, pressure support of 5 and PEEP of 8. Repeat chest x-ray in the morning. If lung does not open up, we will then perform a bronchoscopy for inspection and possibly suctioning if there is any mucous plugs. Continue airway clearance with IPV. We will remain in the ICU for the ventilator today. Date of service: 09/05/2022 Blair Bacon MD Typewriter Ribbon Winder of Internal Medicine Division of Pulmonary, Critical Care and Sleep Medicine [facility] Pager: [phone] * Lila Baptiste RN - 09/05/2022 1:48 AM CDT Problem: Impaired Gas Exchange Goal: Resp rate/effort will be within specified limits Outcome: Progressing Problem: Ineffective Airway Clearance Goal: Patent airway Outcome: Progressing Note: Suction PRN. Problem: Fall Risk Goal: Fall risk and fall related injury risk are minimized (interventions related to the fall risk can be found in the flowsheet documentation) Outcome: Progressing Note: Fall prevention protocol maintained. Problem: Nutrient: Inadequate protein-energy intake Goal: Total intake will meet estimated nutrient needs Outcome: Progressing Problem: Oxygenation/Respiratory Function Goal: Patent airway Outcome: Progressing Note: Suction PRN. Goal: Respiratory rate/effort will be within specified limits Outcome: Progressing Problem: Care of Tracheostomy Goal: Tracheostomy tube and site will be maintained Outcome: Progressing Note: BID trach care and PRN. Problem: Potential for Infection Goal: Insertion site without signs/symptoms of infection Outcome: Progressing Problem: Knowledge Deficit Goal: Patient/Significant other demonstrates understanding of Tracheostomy Outcome: Progressing Problem: Communication/Dysarthria Goal: STG - Patient will tolerate PMV trials Outcome: Progressing Problem: Pain/Discomfort Goal: Patient exhibits reduced pain/discomfort as evidenced by pain scores Outcome: Progressing Goal: Patient uses pharmacological and non-pharmacological pain management strategies. Outcome: Progressing Goal: Patient verbalizes acceptable level of pain relief and ability to engage in desired activity. Outcome: Progressing * Jake Mosqueda MD - 09/04/2022 10:45 AM CDT MICU Progress Note 09/04/2022 10:45 AM Patient: Bi Tabor (:1960) Room: [facility] Admit Date: 08/28/2022. Hospital Day: 7 CC: Acute on chronic hypoxic respiratory failure Hospital Course: Mr. Tabor is a 62-year-old male with PMHx of CVA with residual left-sided deficits, HTN, seizure disorder, dementia, dysphagia with recurrent aspiration s/p PEG tube, PVD s/p left AKA c/b non-healingfoot wound (02/2022), Zenker diverticulum s/p diverticulectomy (07/15/2022), chronic hypoxic respiratory failure s/p tracheostomy (07/15/2022) who presented to ED on 08/28/2022 with SOB. Pt was tachypneic with increased work of breathing. SNF did not have suction instruments, so he was brought to ED. In the ED, vitals were Temp 100.2 degrees, BP 133/87, HR 121, RR 27, SpO2 95% on 10 L. Labs showed WBC 15.4, hemoglobin 11.8, platelets 143, creatinine 0.51, troponin 10 --> 9, procalcitonin <0.02. UA showed 2+ LE, 21-50 WBC, trace bacteria. Blood cultures positive for gram- positive in clusters. CXR showed large right pleural effusion resulting in near complete collapse of the right lung and ill-defined/GGO of the remaining aerated portion of the RUL. Pt started on IV vancomycin and cefepime. MRSA PCR positive. Blood cultures x2 positive for staphylococcus capitis. Sputum culture positivefor MRSA and pseudomonas. Urine culture positive for pseudomonas. ID consulted. TTE without vegetations. Interval History: No acute events overnight. Pt has been afebrile. He is on 6 L trach collar this morning and is overall doing well. Objective: Vitals: 09/04/22 0600 09/04/22 0615 09/04/22 0630 09/04/22 0903 BP: 119/72 Pulse: 102 105 (!) 120 94 Resp: 25 28 29 10 Temp: 98.8 ??F (37.1 ??C) SpO2: 95% 93% (!) 88% 94% Weight: Height: Physical Exam General - NAD, cachectic, able to answer questions and follow commands HEENT - NC/AT, EOMI Chest - On trach collar. Coarse breath sounds bilaterally CV - RRR. No murmurs Abdomen - PEG tube in LUQ Musculoskeletal - s/p right AKA Extremities - No clubbing, no cyanosis, no edema Skin - No rashes, lesions or jaundice Neurologic - CN II-XII grossly intact. No focal deficits Psych - Appropriate mood and affect Labs: CBC: Recent Labs Component Name 09/04/22 0340 09/03/22 0256 09/02/22 0400 WBC 6.4 5.6 4.5 HGB 8.7* 8.7* 8.5* HCT 27.7* 27.3* 26.7* BMP: Recent Labs Component Name 09/04/22 0340 09/03/22 0256 09/02/22 0400 NA 142 143 142 CL 108* 109* 110* CO2 29 27 27 BUN 11 10 9 CREATININE 0.32* 0.35* 0.32* CALCIUM 9.5 8.8 8.8 PHOS 2.8 3.5 2.4* Hepatic: Recent Labs Component Name 08/28/22222308/28/22 1251 06/30/22 1039 ALT 5 6 5 AST 13 14 13 TBILI 0.6 0.5 0.3 PROT 6.0 7.5 6.2 ALB 2.0* 2.5* 2.2* ALKPHOS 67 88 65 Coagulation: Recent Labs Component Name 08/28/22222306/27/22 22105/11/22 1309 PT 15.2* 12.8 13.5 INR 1.2 1.0 1.0 Cardiac Markers: Recent Labs Component Name 07/11/22 0040 07/01/22 1634 06/28/22 0141 06/27/22 2215 05/30/22 1750 03/08/22 1455 12/31/21 0412 CKTOTAL 49 42 - - - - 77 TROPONINI - - <0.010 <0.010 <0.010 - - - = values in this interval not displayed. Micro: Reviewed. Imaging: Reviewed. Assessment: History of CVA (cerebrovascular accident) POA: Yes Paroxysmal tachycardia, unspecified (CMS/HCC) POA: Yes Seizure (CMS/HCC) POA: Yes Sepsis without acute organ dysfunction (CMS/HCC) POA: Yes Protein calorie malnutrition (CMS/HCC) POA: Yes Pulmonary infiltrate POA: Yes Acute on chronic respiratory failure with hypoxia (CMS/HCC) POA: Yes Tachycardia POA: Yes Tachypnea POA: Yes SOB (shortness of breath) POA: Yes PLAN: Neurological: #Seizure disorder -Home meds: Lacosamide 200 mg BID, levetiracetam 2000 mg BID, clobazam 20 mg BID -Divalproex 500 mg Q6H started on 08/30. Valproate level on 08/30 was <13 Plan: -Continue above Cardiovascular: No active issues. Most recent TTE on 08/30/2022 showed EF 58%, grade I DD, no vegetations Pulmonary: #Right-sided pleural effusion #AHRF #s/p tracheostomy -See presentation and workup above. Pt started on vancomycin and cefepime on admission. Sputum culture positive for MRSA and pseudomonas -No window on bedside thoracentesis on 08/30 Plan: -s/p antibiotics above with EOT on 09/03. Pt is also on levalbuterol nebulizers Q6H PRN, hypertonic saline nebulizer BID, NAC 600 mg BID, and guaifenesin 10 mL Q6H -Continue to wean respiratory support. Can consider pulmonary consult on floor for trach weaning -Repeat CXR today GI: #Zenker diverticulum s/p diverticulectomy (06/2022) #Aspiration s/p PEG tube Plan: -Continue tube feeds with FWF Renal: No active issues. Endocrine: BG goal 140-180. Hypoglycemia protocol ID: #Staph capitis bacteremia #Pesudomonas UTI #MRSA and pseudomonas pneumonia #Leukocytosis -Blood cultures x2 from 08/28 positive for staph capitis. Unclear source at this time. Pt does not have CVC or arterial line -UA showed 2+ LE, 21-50 WBC, trace bacteria. Urine culture positive for pseudomonas -Sputum culture positive for MRSA and pseudomonas -Repeat blood cultures x2 from 08/30 showed no growth Plan: -If repeat blood cultures remain negative, will treat pneumonia/UTI for 7 days. If positive, will need repeat blood cultures and 14 days of antibiotics Heme/Onc: #Anemia #Thrombocytopenia Plan: -Continue to monitor. Transfuse for hemoglobin <7 or platelets <10 FEN: Monitor electrolytes and replete PRN Lines: Trach, PEG tube, PIV x3, condom catheter Prophylaxis: Aspiration precautions with HOB elevation by 30 degrees GI prophyalxis with pantoprazole DVT prophyalxis with SCDs, enoxaparin Diet: Tube feeds Activity: Ambulate/up ad merline Disposition: TTF Code Status: Full code Jake Mosqueda MD Associated attestation - Blair Bacon MD - 09/04/2022 12:44 PM CDT I have seen and examined the patient with the resident and I agree with the findings and plan of care as documented by the resident except as noted below: Status post tracheostomy on trach collar. Has moderate secretions. Mild increase in O2 requirementstoday. Was on Pass[place] valve yesterday, will hold off given increase in O2 requirements. Repeat chest x-ray today, looks like he has some collapse in the right lower lobe for the last couple of weeks. Continue airway clearance measures with bronchial hygiene. Transfer to the floor. Date of service: 09/04/2022 Blair Bacon MD [employer] Winder of Internal Medicine Division of Pulmonary, Critical Care and Sleep Medicine [facility] Pager: [phone] * Iggy Rodriguez - 09/03/2022 1:22 PM CDT Tuesday Summary Note Discharge Level of Care: LTC Discharge Destination: [facility] Insurance Auth: n/a Anticipated Mode of Transportation: ALS Contacts (Name, relationship, phone #): sister Forrest, Anticipated DC Date: TBD Pending Needs: medical stability CLARITA Turcios Phone [phone] 09/03/2022 * Melany Tran, MINH/NOLAN - 09/03/2022 12:32 PM CDT Initial Nutrition Assessment Brief Synopsis: Patient is diagnosed with moderate malnutrition; Specific criteria can be found in assessment below Nutrition Plan: NPO Jevity 1.5 at 60 ml/hr. Provides 2160 kcal, 92 g protein, 311 g carbohydrate, 1094 ml free water. +50 ml q 6 hrs free water flush or per MD if on IVF +100 ml q4 hrs free water flush or per MD if not on additional fluids Recommendations to Physician: Code for malnutrition. Comments: Pt scheduled for reassessment. Pt remains in ICU on trach collar. Pt receiving TF at above goal rate. Pt c/o abdominal pain. Pt discussed this AM in MICU rounds and patient to eventually return back to facility. x2 stool in last x24 hours. Weight stable. RD to follow. 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 Height: 182.9 cm (6') Weight: 62 kg (136 lb 9.6 oz) BMI: Body mass index is 18.53 kg/m??. BMI Range: Normal IBW/lb (Calculated) Male: 178 , Recent Weights/Methods 07/16/2022 0400 07/17/2022 0400 07/18/2022 0347 07/19/2022 0400 07/20/2022 0400 08/20/2022 1346 08/28/2022 1101 08/29/2022 0529 Weight: 66.5 kg (146 lb 9.7 oz) 67 kg (147 lb 11.3 oz) 65 kg (143 lb 4.8 oz) 65.5 kg (144 lb 6.4 oz) 66 kg (145 lb 8.1 oz) 63.5 kg (140 lb) 63.5 kg (140 lb) 62 kg (136 lb 9.6 oz) Weight Method (Utilize Scales): Bedscale Bedscale Bedscale Bedscale Bedscale Estimated -- Bedscale Wt Comments: reviewed, monitoring. No recent weight since 08/29. Diet order accuracy Current diet order: NPO Current tube feeding order: Jevity 1.5 @60ml/hr Nutrition recommendation: alter/change nutrition order P.O.Intake for the past 48 hrs: No data recorded Food Allergies: No known food allergies Chewing/Swallowing: Dysphagia Pain affecting intake: No Estimated Needs: KCAL: [id number] (30-35kcal/kg of ABW) Protein (g): 93-109 (20% of estimated needs) Fluid (ml): 1 ml/kcal Needs based on: Kcal/kg- (Comment) Recommended Access Route: TF Malnutrition Etiology: Malnutrition in the context of: chronic disease, Malnutrition Severity: Moderate BMI: Body mass index is 18.53 kg/m??. GI Concerns: None Nutrition Focused Physical Assessment: Loss of Subcutaneous Fat Orbital: Moderate Buccal: Moderate Tricep: Moderate Muscle Loss Temples (Temporalis Muscle): Moderate Clavicles (Pectoralis & Deltoids): Moderate Shoulders (Deltoids): Moderate Pertinent Nutrition Labs: Recent Labs Component Name 09/03/22 0256 09/02/22 0400 09/01/22 0205 08/30/22 0039 08/28/22 2224 08/28/22 1251 07/01/22 1634 06/30/22 1039 BUN 10 9 9 - 11 12 - 7 CREATININE 0.35* 0.32* 0.34* - 0.50* 0.51* - 0.58* NA 143 142 141 - 142 139 - 140 POTASSIUM 3.9 3.9 3.7 - 3.9 4.5 - 4.0 CL 109* 110* 109* - 111* 103 - 107 CO2 27 27 23 - 24 27 - 24 GLUCOSE 125* 115 114 - 86 100 - 115 CALCIUM 8.8 8.8 8.9 - 8.8 9.8 - 9.5 PROT - - - - 6.0 7.5 - 6.2 ALB - - - - 2.0* 2.5* - 2.2* TBILI - - - - 0.6 0.5 - 0.3 ALKPHOS - - - - 67 88 - 65 ALT - - - - 5 6 - 5 AST - - - - 13 14 - 13 ANIONGAP 11 9 13 - 11 14 - 13 BCR 29* 28* 26* - 22 24* - 12 OSMOLALITY 297 294 292 - 293 288 - 289 AGRATIO - - - - 0.5* 0.5* - 0.6* EGFR >90 >90 >90 - >90 >90 - >90 - = values in this interval not displayed. Pertinent Nutrition Medications: Current Facility-Administered Medications Medication ??? 0.9% NaCl injection 3 mL And ??? 0.9% NaCl injection 1-10 mL ??? acetylcysteine (Mucomyst) 20 % solution 600 mg ??? cefepime (Maxipime) 2,000 mg in 0.9% NaCl IV 50 mL IVPB ??? cloBAZam (Onfi) tablet 20 mg ??? divalproex sprinkle (Depakote Sprinkle) capsule 500 mg ??? enoxaparin (Lovenox) injection 40 mg ??? guaiFENesin (Robitussin) solution 10 mL ??? lacosamide (Vimpat) tablet 200 mg ??? levalbuterol (Xopenex) nebulizer solution 1.25 mg ??? levETIRAcetam (Keppra) tablet 2,000 mg ??? polyethylene glycol 3350 (Miralax) packet 17 g ??? senna-docusate (Senokot-S) tablet 1 tablet ??? sodium chloride (Inhalant) 7 % nebulizer solution 4 mL ??? vancomycin (Vancocin) 750 mg in 0.9% NaCl IV 250 mL IVPB Skin/Wound: WDL Nutrition Care Process (1) Nutrition Diagnostic Statement: Inadequate protein-energy intake related to:: decreased ability to consume or tolerate adequate food and/or fluids due to illness;swallowing difficulty as evidenced by:: estimated intake insufficient to meet requirements;BMI less than 19;unintentionalweight loss Nutrition Diagnostic Statement Progress: Nutrition problem continues Nutrition Intervention: Enteral nutrition: Monitoring: GI, TF, WT, labs, medications Evaluation: Nutrition Goal: Total intake will meet estimated nutrient needs Nutrition Goal Timeframe: Throughout stay Nutrition Goal Progress: Continue with current goal [id number] [id number] * Elmo Caicedo, REPORTING COORDINATOR - 09/03/2022 10:04 AM CDT [facility] Passy [place] Valve Therapy Patient: Bi Tabor [facility] Record Number: [id number] Date of :: 1960 Age: [age] year old PPE: n95, gloves, gown (MRSA) Impressions: Patient reassessed at bedside for PMV. Patient wearing PMV when REPORTING COORDINATOR entered room and demonstrated appropriate vocal quality. No deep suctioning required. Patient with adequate vocal quality with PMV. recommends for patient to wear PMV during waking hours. PMV Recommendations: Recommend use of PMV during waking hours Discharge Recommendations: TBD, due to acute medical status Speech therapy is recommended for further assessment of speech/language/cognition. Subjective: Mental Status: Lethargic Pain: Patient does not report pain at this time Follow-up for pain: No follow-up for pain indicated and patient agreed to proceed with treatment Objective: Tracheostomy Tube: Bivona 6 Breathing Status: trach collar- 4L/min Baseline spO2: 98% Phonation with finger occlusion: yes Voice quality: Decreased intensity-if yes above Patient was educated re: effects of trach on phonation and the need for finger occlusion or PMV useto achieve voicing and improve communicative function. Assessment: PMV was placed by REPORTING COORDINATOR and patient was observed wearing valve for approximately 20 minutes. spO2 was94%+. Vocal quality with PMV in place was Decreased intensity. Patient did not exhibit any change in respirations and did not complain of any shortness of breath. Patient was instructed in the valve's proper placement and removal. REPORTING COORDINATOR also educated patient on proper care of valve and instructions for use of valve (removed for sleep). Education: Patient not appropriate for education at this time secondary to altered mental status orquestionable understanding. Use of PMV reviewed with RN, Naa. Instructions for use also communicated on patient's whiteboard. Goals: Short Term Goals: Patient to achieve phonation with Passy Diamondhead Valve while on tracheostomy. Studio Artist Goal(s): Patient to be independent/baseline with speech/language/cognitive/swallowing to be able to safely discharge to prior level of care. If patient is discharged from the facility, this note serves as a discharge note if further speech therapy visits did not occur. Elmo Ansari M.A., [facility]-REPORTING COORDINATOR Speech Language Pathologist [phone] * Philly Otoole RN - 09/03/2022 9:27 AM CDT Case Management Progress Note Anticipated level of care at discharge: Custodial - Medicaid CM Assessment: Patient is from [facility]. Patient admitted for acute on chronic hypoxic respiratory failure. ID following, trach, PEG tube, DVT Ppx. Patient will discharge to [facility] when medically stable. CM will continue to follow POC and provide additional assistance as needed. Discharge Plan: Return to facility READMISSION RISK SCORE is 28 at 9:28 AM 09/03/2022. Anticipated Discharge Date: Anticipated Discharge Date: 09/03/22 Patient/Family provided with list of resources? No Preferred Provider / High Quality Network List given?: No Reason for provider choice: Pt. choice - previous provider Family Support (name and phone): Extended Emergency Contact Information Primary Emergency Contact: Adriane Pearson Mobile Relation: Sister Shop Mechanic needed? No Secondary Emergency Contact: Amarjit Tabor [facility] Relation: Brother Transportation at Discharge: Follow Up Appointment: Transportation to MD: Equipment at Home: Equipment at Home: Facility Equipment List DME patient requires but does not have: DME Provider: Hunger Screening: Within the past 12 months, you worried that your food would run out before you got the money to buymore.: Never true Within the past 12 months, the food you bought just didn't last and you didn't have money to get more.: Never true Medication affordability concerns: No Auth Number (if required) NH: DME: Medications: Transportation: Name: Philly Otoole RN, BSN, MSN, CM /[phone] * Jake Mosqueda MD - 09/03/2022 8:08 AM CDT MICU Progress Note 09/03/2022 8:08 AM Patient: Bi Tabor (:1960) Room: [facility] Admit Date: 08/28/2022. Hospital Day: 6 CC: Acute on chronic hypoxic respiratory failure Hospital Course: Mr. Tabor is a 62-year-old male with PMHx of CVA with residual left-sided deficits, HTN, seizure disorder, dementia, dysphagia with recurrent aspiration s/p PEG tube, PVD s/p left AKA c/b non-healingfoot wound (02/2022), Zenker diverticulum s/p diverticulectomy (07/15/2022), chronic hypoxic respiratory failure s/p tracheostomy (07/15/2022) who presented to ED on 08/28/2022 with SOB. Pt was tachypneic with increased work of breathing. SNF did not have suction instruments, so he was brought to ED. In the ED, vitals were Temp 100.2 degrees, BP 133/87, HR 121, RR 27, SpO2 95% on 10 L. Labs showed WBC 15.4, hemoglobin 11.8, platelets 143, creatinine 0.51, troponin 10 --> 9, procalcitonin <0.02. UA showed 2+ LE, 21-50 WBC, trace bacteria. Blood cultures positive for gram- positive in clusters. CXR showed large right pleural effusion resulting in near complete collapse of the right lung and ill-defined/GGO of the remaining aerated portion of the RUL. Pt started on IV vancomycin and cefepime. MRSA PCR positive. Blood cultures x2 positive for staphylococcus capitis. Sputum culture positivefor MRSA and pseudomonas. Urine culture positive for pseudomonas. ID consulted. TTE without vegetations. Interval History: No acute events overnight. Pt has been afebrile. He had a headache overnight that has resolved. Pt down to 4 L this morning. Objective: Vitals: 09/03/22 0300 09/03/22 0400 09/03/22 0500 09/03/22 0600 BP: 116/71 108/67 96/70 140/80 Pulse: 88 80 81 91 Resp: 19 19 23 22 Temp: 98.7 ??F (37.1 ??C) SpO2: 94% 99% 100% 96% Weight: Height: Physical Exam General - NAD, cachectic, able to answer questions and follow commands HEENT - NC/AT, EOMI Chest - On trach collar. Coarse breath sounds bilaterally CV - RRR. No murmurs Abdomen - PEG tube in LUQ Musculoskeletal - s/p right AKA Extremities - No clubbing, no cyanosis, no edema Skin - No rashes, lesions or jaundice Neurologic - CN II-XII grossly intact. No focal deficits Psych - Appropriate mood and affect Labs: CBC: Recent Labs Component Name 09/03/22 0256 09/02/22 0400 09/01/22 0205 WBC 5.6 4.5 6.3 HGB 8.7* 8.5* 8.8* HCT 27.3* 26.7* 26.7* BMP: Recent Labs Component Name 09/03/22 0256 09/02/22 0400 09/01/22 0205 NA 143 142 141 CL 109* 110* 109* CO2 27 27 23 BUN 10 9 9 CREATININE 0.35* 0.32* 0.34* CALCIUM 8.8 8.8 8.9 PHOS 3.5 2.4* 2.8 Hepatic: Recent Labs Component Name 08/28/22222308/28/22 1251 06/30/22 1039 ALT 5 6 5 AST 13 14 13 TBILI 0.6 0.5 0.3 PROT 6.0 7.5 6.2 ALB 2.0* 2.5* 2.2* ALKPHOS 67 88 65 Coagulation: Recent Labs Component Name 08/28/22222306/27/22221405/11/22 1309 PT 15.2* 12.8 13.5 INR 1.2 1.0 1.0 Cardiac Markers: Recent Labs Component Name 07/11/22 0040 07/01/22 1634 06/28/22 0141 06/27/22 2215 05/30/22 1750 03/08/22 1455 12/31/21 0412 CKTOTAL 49 42 - - - - 77 TROPONINI - - <0.010 <0.010 <0.010 - - - = values in this interval not displayed. Micro: Reviewed. Imaging: Reviewed. Assessment: History of CVA (cerebrovascular accident) POA: Yes Paroxysmal tachycardia, unspecified (CMS/HCC) POA: Yes Seizure (CMS/HCC) POA: Yes Sepsis without acute organ dysfunction (CMS/HCC) POA: Yes Protein calorie malnutrition (CMS/HCC) POA: Yes Pulmonary infiltrate POA: Yes Acute on chronic respiratory failure with hypoxia (CMS/HCC) POA: Yes Tachycardia POA: Yes Tachypnea POA: Yes SOB (shortness of breath) POA: Yes PLAN: Neurological: #Seizure disorder -Home meds: Lacosamide 200 mg BID, levetiracetam 2000 mg BID, clobazam 20 mg BID -Divalproex 500 mg Q6H started on 08/30. Valproate level on 08/30 was <13 Plan: -Continue above Cardiovascular: No active issues. Most recent TTE on 08/30/2022 showed EF 58%, grade I DD, no vegetations Pulmonary: #Right-sided pleural effusion #AHRF #s/p tracheostomy -See presentation and workup above. Pt started on vancomycin and cefepime on admission. Sputum culture positive for MRSA and pseudomonas -No window on bedside thoracentesis on 08/30 Plan: -Continue antibiotics above with EOT on 09/03. Pt is also on levalbuterol nebulizers Q6H PRN, hypertonic saline nebulizer BID, NAC 600 mg BID, and guaifenesin 10 mL Q6H -Continue to wean respiratory support. Can consider pulmonary consult on floor for trach weaning GI: #Zenker diverticulum s/p diverticulectomy (06/2022) #Aspiration s/p PEG tube Plan: -Continue tube feeds with FWF Renal: No active issues. Endocrine: BG goal 140-180. Hypoglycemia protocol ID: #Staph capitis bacteremia #Pesudomonas UTI #MRSA and pseudomonas pneumonia #Leukocytosis -Blood cultures x2 from 08/28 positive for staph capitis. Unclear source at this time. Pt does not have CVC or arterial line -UA showed 2+ LE, 21-50 WBC, trace bacteria. Urine culture positive for pseudomonas -Sputum culture positive for MRSA and pseudomonas -Repeat blood cultures x2 from 08/30 showed no growth Plan: -If repeat blood cultures remain negative, will treat pneumonia/UTI for 7 days. If positive, will need repeat blood cultures and 14 days of antibiotics Heme/Onc: #Anemia #Thrombocytopenia Plan: -Continue to monitor. Transfuse for hemoglobin <7 or platelets <10 FEN: Monitor electrolytes and replete PRN Lines: Trach, PEG tube, PIV x3, condom catheter Prophylaxis: Aspiration precautions with HOB elevation by 30 degrees GI prophyalxis with pantoprazole DVT prophyalxis with SCDs, enoxaparin Diet: Tube feeds Activity: Ambulate/up ad merline Disposition: TTF Code Status: Full code Jake Mosqueda MD Associated attestation - Artemio Abarca MD - 09/03/2022 1:18 PM CDT I saw and evaluated the patient. I reviewed the resident???s note and agree with findings and plan as documented in the resident???s note Artemio Abarca MD Division of Pulmonary, Critical Care, & Sleep Medicine [facility] P: [phone] 09/03/2022 , 1:18 PM * Elmo Caicedo SLP - 09/02/2022 10:30 AM CDT [facility] Passy Diamondhead Valve Therapy Patient: Bi Tabor [facility] Record Number: [id number] Date of :: 1960 Age: [age] year old PPE: n95, gloves, gown (MRSA) Impressions: Patient reassessed at bedside for PMV. REPORTING COORDINATOR provided trach care and suction as needed before placing PMV. Patient able to wear PMV for 20 minutes with SPO2 above 98% with 6L/min via trachcollar. Patient with adequate vocal quality with PMV. ST recommends for patient to wear PMV during waking hours. PMV Recommendations: Recommend use of PMV during waking hours Discharge Recommendations: TBD, due to acute medical status Speech therapy is recommended for further assessment of speech/language/cognition. Subjective: Mental Status: Lethargic Pain: Patient does not report pain at this time Follow-up for pain: No follow-up for pain indicated and patient agreed to proceed with treatment Objective: Tracheostomy Tube: Bivona 6 Breathing Status: trach collar- 6L/min Baseline spO2: 98% Phonation with finger occlusion: yes Voice quality: Decreased intensity-if yes above Patient was educated re: effects of trach on phonation and the need for finger occlusion or PMV useto achieve voicing and improve communicative function. Assessment: PMV was placed by REPORTING COORDINATOR and patient was observed wearing valve for approximately 20 minutes. spO2 was94%+. Vocal quality with PMV in place was Decreased intensity. Patient did not exhibit any change in respirations and did not complain of any shortness of breath. Patient was instructed in the valve's proper placement and removal. REPORTING COORDINATOR also educated patient on proper care of valve and instructions for use of valve (removed for sleep). Education: Patient not appropriate for education at this time secondary to altered mental status orquestionable understanding. Use of PMV reviewed with RN, Naa. Instructions for use also communicated on patient's whiteboard. Goals: Short Term Goals: Patient to achieve phonation with Passy Lucius Valve while on tracheostomy. Penitentiary Goal(s): Patient to be independent/baseline with speech/language/cognitive/swallowing to be able to safely discharge to prior level of care. If patient is discharged from the facility, this note serves as a discharge note if further speech therapy visits did not occur. Elmo Ansari M.A., [facility]-REPORTING COORDINATOR Speech Language Pathologist [phone] * Jake Mosqueda MD - 09/02/2022 7:43 AM CDT [facility] 09/02/2022 7:43 AM Patient: Bi Tabor (:1960) Room: [facility] Admit Date: 08/28/2022. Hospital Day: 5 CC: Acute on chronic hypoxic respiratory failure Hospital Course: Mr. Tabor is a 62-year-old male with PMHx of CVA with residual left-sided deficits, HTN, seizure disorder, dementia, dysphagia with recurrent aspiration s/p PEG tube, PVD s/p left AKA c/b non-healingfoot wound (02/2022), Zenker diverticulum s/p diverticulectomy (07/15/2022), chronic hypoxic respiratory failure s/p tracheostomy (07/15/2022) who presented to ED on 08/28/2022 with SOB. Pt was tachypneic with increased work of breathing. SNF did not have suction instruments, so he was brought to ED. In the ED, vitals were Temp 100.2 degrees, BP 133/87, HR 121, RR 27, SpO2 95% on 10 L. Labs showed WBC 15.4, hemoglobin 11.8, platelets 143, creatinine 0.51, troponin 10 --> 9, procalcitonin <0.02. UA showed 2+ LE, 21-50 WBC, trace bacteria. Blood cultures positive for gram- positive in clusters. CXR showed large right pleural effusion resulting in near complete collapse of the right lung and ill-defined/GGO of the remaining aerated portion of the RUL. Pt started on IV vancomycin and cefepime. MRSA PCR positive. Blood cultures x2 positive for staphylococcus capitis. Sputum culture positivefor MRSA and pseudomonas. Urine culture positive for pseudomonas. ID consulted. TTE without vegetations. Interval History: No acute events overnight. Pt has been afebrile. He c/o abdominal pain this morning. Pt is on 8 L trach collar. Objective: Vitals: 09/02/22 0400 09/02/22 0500 09/02/22 0600 09/02/22 0612 BP: 115/71 126/80 124/70 Pulse: 75 75 74 75 Resp: 19 21 19 22 Temp: SpO2: 91% 91% 96% 97% Weight: Height: Physical Exam General - NAD, cachectic, able to answer questions and follow commands HEENT - NC/AT, EOMI Chest - On trach collar. Coarse breath sounds bilaterally CV - RRR. No murmurs Abdomen - PEG tube in LUQ Musculoskeletal - s/p right AKA Extremities - No clubbing, no cyanosis, no edema Skin - No rashes, lesions or jaundice Neurologic - CN II-XII grossly intact. No focal deficits Psych - Appropriate mood and affect Labs: CBC: Recent Labs Component Name 09/02/22 0400 09/01/22 0205 08/31/22 0057 WBC 4.5 6.3 11.4* HGB 8.5* 8.8* 8.8* HCT 26.7* 26.7* 27.1* BMP: Recent Labs Component Name 09/02/22 0400 09/01/22 0205 08/31/22 0057 NA 142 141 144 CL 110* 109* 107 CO2 BUN 9 9 9 CREATININE 0.32* 0.34* 0.37* CALCIUM 8.8 8.9 9.1 PHOS 2.4* 2.8 2.7* Hepatic: Recent Labs Component Name 08/28/22 2224 08/28/22 1251 06/30/22 1039 ALT 5 6 5 AST 13 14 13 TBILI 0.6 0.5 0.3 PROT 6.0 7.5 6.2 ALB 2.0* 2.5* 2.2* ALKPHOS 67 88 65 Coagulation: Recent Labs Component Name 08/28/22222306/27/22221405/11/22 1309 PT 15.2* 12.8 13.5 INR 1.2 1.0 1.0 Cardiac Markers: Recent Labs Component Name 07/11/22 0040 07/01/22 1634 06/28/22 0141 06/27/22 2215 05/30/22 1750 03/08/22 1455 12/31/21 0412 CKTOTAL 49 42 - - - - 77 TROPONINI - - <0.010 <0.010 <0.010 - - - = values in this interval not displayed. Micro: Reviewed. Imaging: Reviewed. Assessment: History of CVA (cerebrovascular accident) POA: Yes Paroxysmal tachycardia, unspecified (CMS/HCC) POA: Yes Seizure (CMS/HCC) POA: Yes Sepsis without acute organ dysfunction (CMS/HCC) POA: Yes Protein calorie malnutrition (CMS/HCC) POA: Yes Pulmonary infiltrate POA: Yes Acute on chronic respiratory failure with hypoxia (CMS/HCC) POA: Yes Tachycardia POA: Yes Tachypnea POA: Yes SOB (shortness of breath) POA: Yes PLAN: Neurological: #Seizure disorder -Home meds: Lacosamide 200 mg BID, levetiracetam 2000 mg BID, clobazam 20 mg BID -Divalproex 500 mg Q6H started on 08/30. Valproate level on 08/30 was <13 Plan: -Continue above Cardiovascular: No active issues. Most recent TTE on 08/30/2022 showed EF 58%, grade I DD, no vegetations Pulmonary: #Right-sided pleural effusion #AHRF #s/p tracheostomy -See presentation and workup above. Pt started on vancomycin and cefepime on admission. Sputum culture positive for MRSA and pseudomonas -No window on bedside thoracentesis on 08/30 Plan: -Continue antibiotics above with EOT on 09/03. Pt is also on levalbuterol nebulizers Q6H and hypertonic saline nebulizer BID. Start NAC 600 mg BID and guaifenesin 10 mL Q6H -Can consider pulmonology consult on floor for trach weaning GI: #Zenker diverticulum s/p diverticulectomy (06/2022) #Aspiration s/p PEG tube Plan: -Continue tube feeds with FWF Renal: No active issues. Endocrine: BG goal 140-180. Hypoglycemia protocol ID: #Staph capitis bacteremia #Pesudomonas UTI #MRSA and pseudomonas pneumonia #Leukocytosis -Blood cultures x2 from 08/28 positive for staph capitis. Unclear source at this time. Pt does not have CVC or arterial line -UA showed 2+ LE, 21-50 WBC, trace bacteria. Urine culture positive for pseudomonas -Sputum culture positive for MRSA and pseudomonas -Repeat blood cultures x2 from 08/30 showed no growth Plan: -If repeat blood cultures remain negative, will treat pneumonia/UTI for 7 days. If positive, will need repeat blood cultures and 14 days of antibiotics Heme/Onc: #Anemia #Thrombocytopenia Plan: -Continue to monitor. Transfuse for hemoglobin <7 or platelets <10 FEN: Monitor electrolytes and replete PRN Lines: Trach, PEG tube, PIV x3, condom catheter Prophylaxis: Aspiration precautions with HOB elevation by 30 degrees GI prophyalxis with pantoprazole DVT prophyalxis with SCDs, enoxaparin Diet: Tube feeds Activity: Ambulate/up ad merline Disposition: TTF Code Status: Full code Jake Mosqueda MD Associated attestation - Artemio Abarca MD - 09/02/2022 10:45 AM CDT I saw and evaluated the patient. I reviewed the resident???s note and agree with findings and plan as documented in the resident???s note Artemio Abarca MD Division of Pulmonary, Critical Care, & Sleep Medicine [facility] [employer] [facility] P: [phone] 09/02/2022 , 10:45 AM * Bhavesh Phillips MD - 09/01/2022 7:19 PM CDT [facility] Infectious Diseases Progress Note Date of Admission: 08/28/2022 10:57 AM Length of Stay: Day 4 Room: 43/ Attending: Artemio Abarca MD Subjective Since last seen by us, oxygen requirements have been stable but patient reports symptomatic improvement in his dypsnea and abdominal pain. No complaints of fevers/chills, patient has remained afebrile. Sputum culture susceptibilities returned with pseudomonas sensitive to cefepime and MRSA susceptible to vanc. Antimicrobial History Current Antibiotics Vancomycin (08/28-present) Cefepime (08/28-present Inpatient Medications ??? 0.9% NaCl 3 mL Intracatheter q8h ??? cefepime 2 g Intravenous q8h ??? cloBAZam 20 mg Enteral Tube BID ??? divalproex sprinkle 500 mg Enteral Tube q6h ??? enoxaparin 40 mg Subcutaneous QDAY ??? lacosamide 200 mg Enteral Tube BID ??? levETIRAcetam 2,000 mg Enteral Tube BID ??? polyethylene glycol 3350 17 g Enteral Tube QDAY ??? senna-docusate 1 tablet Enteral Tube QDAY ??? sodium chloride (Inhalant) 4 mL Inhalation BID ??? sterile water (PF) ??? vancomycin 1,000 mg Intravenous q8h Objective Vitals BP 137/81 Pulse 92 Temp 97.6 ??F (36.4 ??C) (Axillary) Resp 22 Ht 1.829 m (6') Wt 62 kg (136 lb 9.6 oz) SpO2 94% Temp (24hrs), Av ??F (36.7 ??C), Min:97.4 ??F (36.3 ??C), Max:98.9 ??F (37.2 ??C) Physical Exam Constitutional: Alert and cooperative, NAD, tracheostomy in place, pateint nonverbal Head, Ears, Nose: Normocephalic, atraumatic. External ears, nose normal Eyes: Conjunctivae/corneas clear. No scleral icterus. Neck: Tracheostomy without erythema at site, expectorating white/yellow phlegm Oral: Dentition fair, no thrush Cardiovascular: S1, S2 normal. No murmurs, rubs, or gallops. Respiratory: Good air entry, clear to auscultation bilaterally without rales, rhonchi, or wheezes. GI: Soft, non-tender; bowel sounds normal. PEG tube without erythema or purulent drainage Musculoskeletal: Extremities normal, atraumatic, no cyanosis or edema Skin: No rashes Hem/Lymphatic: No palpable cervical or supraclavicular nodes Psych: Normal mood and affect. Neurologic: Awake, alert, oriented. Lines: PIV x3 in left arm. PEG tube and trach as above, condom automobile service writer Review CBC: Recent Labs Component Name 09/01/2220408/31/227 08/30/22 0039 WBC 6.3 11.4* 11.8* RBC 2.67* 2.71* 2.73* HGB 8.8* 8.8* 8.9* HCT 26.7* 27.1* 27.8* MCV 100.0* 100.0* 101.8* BMP: Recent Labs Component Name 09/01/22 0205 08/31/227 08/30/22 0039 08/28/22222308/28/22 1251 07/01/22 1634 06/30/22 1039 NA 141 144 141 142 139 - 140 CL 109* 107 111* 111* 103 - 107 CO2 24 24 27 - 24 BUN 9 9 12 11 12 - 7 CREATININE 0.34* 0.37* 0.45* 0.50* 0.51* - 0.58* ALB - - - 2.0* 2.5* - 2.2* PROT - - - 6.0 7.5 - 6.2 - = values in this interval not displayed. estimated creatinine clearance is 200.1 mL/min (A) (by C-G formula based on SCr of 0.34 mg/dL (L)). LFTs: Recent Labs Component Name 08/28/22222308/28/22 12506/30/22 1039 06/27/22 2215 ALKPHOS 67 88 65 95 ALT 5 6 5 6 AST 13 14 13 19 LIPASE - - - 18 Coagulation: Recent Labs Component Name 08/28/22 2224 06/27/22 2215 05/11/22 1309 PT 15.2* 12.8 13.5 INR 1.2 1.0 1.0 Microbiology, Imaging and other diagnostic tests MICROBIOLOGY: Blood culture: 08/28: Staph Capitis 07/01 08/30: NGTD Urine culture: 08/28: Pseudomonas aeruginosa, hanna-susceptible Sputum Culture: 08/28: Pseudomonas aeruginosa and MRSA HISTOPATHOLOGY: None at this admission IMAGING & PROCEDURES: I have independently reviewed all pertinent imaging data. Reports available in EMR. Assessment and Recommendations ?? #Staph capitis bacteremia - Patient presenting with increased dyspnea and sputum production from trach, since admission has had sporadic low grade fevers - Blood cultures collected on admission positive 07/01 for Staph capitis. Normally skin/oral domenico, could possibly be contaminant. - TTE performed with no evidence of endocarditis - Has no purulent drainage or erythema from PEG tube site concerning for infection at this site - Given gram positive bacteremia would get TTE for further evaluation for possible vegetation - Follow up cultures on 08/30 have been NGTD. Given lack of growth we can likely consider this a contaminant and at this time do not need to treat with 14 day antibiotic course ?? #Hospital Acquired Pneumonia vs tracheitis - Paitnet presenting with increased tachypncea, subjective dyspnea. CXR on arrival noted to have large pleural effusion in right lobe. Unclear if this may be parapneumonic, signfiicantly larger than on previous imaging in June. - Still making more frequent secretions but oxygen saturations adequate on humidified air. - Sputum cultures positive for heavy Pseudomonas and MRSA. Currently receiving vancomycin and cefepime - Patient initially with large pleural effusion on CXR but seems to be improving on follow up CXR and dyspnea improving. Unable to find a window for thoracentesis, but at this time we believe that wecan treat with seven day course of antibiotics for uncomplicated pneumonia with seven day course ?? #Possible Urinary Tract Infection - Patient with UA concerning for urinary tract infection. No complaints of dysuria at this time from patient but per nursing urine seemed cloudy - Urine cultures collected, showing hanna-susceptible Pseudomonas, covered by current treatment regimen Renal Function: estimated creatinine clearance is 200.1 mL/min (A) (by C-G formula based on SCr of 0.34 mg/dL (L)). Allergies: Allergies Allergen Reactions ??? Clonazepam Psychiatric hallucinations Plan/Recommendations - Continue cefepime and vancomycin for 7 day course for uncomplicated pneumonia coverage - If concerned for empyema or parapneumonic effusion, consider IR consult for possible image-guidedthoracentesis - We will sign off at this time. Please call ID if follow up blood cultures return positive, or with any questions about treatment plan Check CBC with auto diff and CMP at least weekly while on IV antibiotics Thank you for allowing us to participate in the care of this patient. We will continue to follow and monitor with you closely. Patient seen, examined, and case/plan were discussed with my attending physician, Dr. Valdez. I spent over 45 min in the care of this patient, and over 50% of that time was spent in counseling and coordination of care. Bhavesh Phillips MD PGY-2, Internal Medicine [facility] Pager: [phone] [facility] Associated attestation - Mira Valdez MD - 09/02/2022 10:54 AM CDT Patient was seen by me with a resident. Agree with plans and findings. * Felicity Lofton RN - 09/01/2022 1:02 PM CDT A Chart Review has been conducted by Case Management. Based on current condition, will patient be able to return to prior living situation?yes Anticipated Discharge Date: 09/03/22 Anticipated discharge needs: IV antibiotics Barriers to discharge / additional discharge needs: none Immediately apparant Additional comments: pt from [facility] Per nursing assessments: presented to ED on 08/28/2022 with SOB. Pt was tachypneic with increased work of breathing Transportation (who): [facility] [facility] Quilting Machine Operator/Support: sister Adriane Pearson Quilting Machine Operator person: Home/Functional Status: TF. Trach Functional and Cognitive Status Is person deaf or have serious hearing difficulty?: No Is person blind or have serious difficulty seeing?: No Does person have serious difficulty walking/climbing stairs?: Yes Does person have difficulty dressing/bathing?: Yes Does person have difficulty doing errands alone?: Yes Does person have difficulty concentrating/remembering/making decisions?: Yes Equipment with patient: None Assistive Devices: None ?. Will continue to follow. For any questions or needs please contact: Vice President Underwriting Name/Phone number: Felicity Lofton RN [phone] * Elmo Caicedo SLP - 09/01/2022 11:00 AM CDT [facility] Passy Lucius Valve Evaluation Patient: Bi Tabor [facility] Record Number: [id number] Date of :: 1960 Age: [age] year old In addition to the 1:1 evaluation of the patient, additional eval time was spent completing the chart review prior to the assessment, completing the multidisciplinary plan of care and education plan post evaluation and communicating results of the eval to other treatment team members. PPE: n95, gloves, gown (MRSA) Impressions: Patient assessed at bedside for PMV. Patient able to tolerate finger occlusion of trach and wear PMV for 20 minutes with SPO2 above 94% with 8L/min via trach collar. ST recommends for patient to wear PMV during waking hours. Patient very reticent and required max cues and encouragementin order to vocalize with REPORTING COORDINATOR. ST will follow patient to assess PMV tolerance. PMV Recommendations: Recommend use of PMV during waking hours Discharge Recommendations: TBD, due to acute medical status Speech therapy is recommended for further assessment of speech/language/cognition. Subjective: Mental Status: Lethargic Pain: Patient does not report pain at this time Follow-up for pain: No follow-up for pain indicated and patient agreed to proceed with treatment Objective: Tracheostomy Tube: Bivona 6 Breathing Status: trach collar- 8L/min Baseline spO2: 94% Phonation with finger occlusion: yes Voice quality: Decreased intensity-if yes above Patient was educated re: effects of trach on phonation and the need for finger occlusion or PMV useto achieve voicing and improve communicative function. Assessment: PMV was placed by REPORTING COORDINATOR and patient was observed wearing valve for approximately 20 minutes. spO2 was94%+. Vocal quality with PMV in place was Decreased intensity. Patient did not exhibit any change in respirations and did not complain of any shortness of breath. Patient was instructed in the valve's proper placement and removal. REPORTING COORDINATOR also educated patient on proper care of valve and instructions for use of valve (removed for sleep). Education: Patient not appropriate for education at this time secondary to altered mental status orquestionable understanding. Use of PMV reviewed with RN, Naa. Instructions for use also communicated on patient's whiteboard. Goals: Short Term Goals: Patient to achieve phonation with Passy Lucius Valve while on tracheostomy. Studio Artist Goal(s): Patient to be independent/baseline with speech/language/cognitive/swallowing to be able to safely discharge to prior level of care. If patient is discharged from the facility, this note serves as a discharge note if further speech therapy visits did not occur. Elmo Ansari M.A., [facility]-REPORTING COORDINATOR Speech Language Pathologist [phone] * Trista Can, PT - 09/01/2022 10:52 AM CDT [facility] Physical Medicine and Rehabilitation Physical Therapy Initial Evaluation Note Patient: Bi Tabor Med Record Number: [id number] Date of : 1960 Age: [age] year old PT seen at request of MICU 3 team. PPE worn by staff: gloves;mask - procedural PPE worn by patient: gown - surgical;socks - clean Co eval with OT Recommendations: Discharge PT Discharge Recommendations: Patient at baseline per therapy evaluation and has no further skilledtherapy needs while in hospital In addition to the 1:1 evaluation of the patient, additional eval time was spent completing the chart review prior to the assessment, completing the multidisciplinary plan of care and education plan post evaluation and communicating results of the eval to other treatment team members. Nurse and Occupational Therapy contacted regarding patient status and/or discharge plan. Physician Orders: Evaluation and Treat PRECAUTIONS: Activity Level: Up ad merline DIAGNOSIS: Patient Active Problem List: Seizure (CMS/HCC) Cerebrovascular accident (CMS/HCC) Hyperlipidemia Hypertension Insomnia Low back pain Osteoporosis Truncal ataxia Therapeutic procedure Seizures (CMS/HCC) Alcohol abuse, uncomplicated Benign neoplasm of prostate Epilepsy, unspecified, not intractable, without status epilepticus (CMS/HCC) Difficulty in walking, not elsewhere classified Muscle weakness (generalized) Other specified rheumatoid arthritis, unspecified site (CMS/HCC) Syncope and collapse Alzheimer's disease with early onset (CMS/HCC) Cognitive communication deficit COVID-19 Dysphagia, oropharyngeal phase Hemiplegia and 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- dominant side (CMS/HCC) History of CVA (cerebrovascular accident) Paroxysmal tachycardia, unspecified (CMS/HCC) Status epilepticus (CMS/HCC) Acute encephalopathy Sepsis without acute organ dysfunction (CMS/HCC) Bacteremia Ulcer of left foot (CMS/HCC) PAD (peripheral artery disease) (CMS/HCC) Protein calorie malnutrition (CMS/HCC) Abdominal pain, generalized Lethargy History of stroke Pulmonary infiltrate Acute on chronic respiratory failure with hypoxia (CMS/HCC) Protein-calorie malnutrition, unspecified severity (CMS/HCC) Aspiration into airway Aspiration pneumonitis (CMS/HCC) Leukocytosis, unspecified type Tachycardia Hypoxia Acute respiratory failure with hypoxia (CMS/HCC) Pneumonia of right lower lobe due to infectious organism Atelectasis, right Contrast-induced nephropathy Zenker diverticula Hypernatremia Hyperkalemia Tachypnea SOB (shortness of breath) Past Medical History: Diagnosis Date ??? CVA (cerebral vascular accident) (CMS/HCC) ??? HTN (hypertension) ??? Seizure (CMS/HCC) SUBJECTIVE: Subjective: Pt agreeable to session Home Situation: Type of Residence: Custodial Equipment at Home: Facility Equipment Prior Level of Functioning: Prior Level of Function Have Help at Home?: Yes, there is help at home now Who assists you at home?: Staff How often is assistance provided?: daily Pain Assessment: Pain Location #1 Pain Scale/Observation: Numeric (0-10) Pain Rating Score #1: 0 OBJECTIVE: At start of therapy session, patient found in bed. General Appearance: pleasant male, supine in bed, NAD LDAs: IV's: Peripheral line, Telemetry, Oxygen High Flow Oxygen and PEG Tube Edema: no edema noted in bilateral lower extremities Vitals: (*Assess the 3 levels of oxygen saturations both for room air and 02 unless rest on room air is 88% or less). Rest BP: 106/71 HR: 78 Sp02 97% 7L @ 30% via trach collar Ex/Gait/Activity Without 02 BP: HR: 81 Sp02 96% 7L @ 30% via trach collar Post Activity BP: 144/84 HR: 82 Sp02 96% 7L @ 30% via trach collar Observations: Vitals monitored throughout session. Pt without any SOB, dizziness, or signs/symptomsof distress. RN notified and aware at end of session. Mental Status/Cognition: Orientation Level: Oriented to Person ROM: RLE: AROM WFL LLE: AROM WFL Strength: RLE:WFL LLE: WFL Tone: RLE: no abnormal tone noted LLE: no abnormal tone noted Coordination: RLE: WNL LLE: WNL Sensation: RLE: no complaints of numbness or tingling LLE: no complaints of numbness or tingling Mobility: A gait belt and non-slip socks were used for all out of bed activity this date. Bed Mobility: Rolling: Total Assistance Supine to Sit: Total Assistance;X 2 (to long sit) with HOB in semi-fowlers position Sit to Supine: Total Assistance;X 2 (long sit to supine) Balance: Balance Scales/Tests Used: Sitting: Static/Dynamic Sitting - Static: Poor Sitting - Dynamic: Not tested ACTIVITY TOLERANCE: Patient's activity tolerance: fair TREATMENT/INTERVENTIONS: evaluation, bed mobility training, transfer training, gait training, balance activities and monitoring of vitals EDUCATION: While performing PT, Patient was instructed in:functional mobility training, energy conservation, safety awareness/fall precautions , discharge planning, use of call light Presented to patient who demonstrates Fair understanding of instructions given. INFORMED CONSENT TO TREATMENT: Plan of care including recommended therapy, goals and frequency, discussed with patient who understands and agrees to proceed. ASSESSMENT: Patient demonstrates baseline functioning with mobility. No continued Physical Therapy indicated atthis time Goals: No goals established as pt is at baseline Equipment Issued: gait belt Plan: Plan: Discontinue IP PT If patient is discharged from the facility, this note serves as a discharge summary if further physical therapy visits did not occur. Refer to filed flowsheet for further details. Following therapy session, patient left in bed, with bed alarm on , with call light within reach, with RNYuliana aware, with therapy cues visible on white board. * Antionette Portillo OT - 09/01/2022 10:46 AM CDT [facility] Medicine [facility] Rehabilitation Occupational Therapy Initial Evaluation Note Patient: Bi Tabor Med Record Number: [id number] Date of : 1960 Age: [age] year old PPE worn by staff: gloves;mask - procedural PPE worn by patient: gown - surgical;socks - clean Tech: No Co-eval with PT 2/2 skilled assist Recommendations: Discharge OT Discharge Recommendations: Patient at baseline per therapy evaluation and has no further skilledtherapy needs while in hospital PT Discharge Recommendations: Patient at baseline per therapy evaluation and has no further skilledtherapy needs while in hospital In addition to the 1:1 evaluation of the patient, additional eval time was spent completing the chart review prior to the assessment, completing the multidisciplinary plan of care and education plan post evaluation and communicating results of the eval to other treatment team members. Nurse and Physical Therapy contacted regarding patient status and/or discharge plan. Physician Orders: Evaluation and Treat Activity Level: up ad merline PRECAUTIONS: DIAGNOSIS: Patient Active Problem List: Seizure (CMS/HCC) Cerebrovascular accident (CMS/HCC) Hyperlipidemia Hypertension Insomnia Low back pain Osteoporosis Truncal ataxia Therapeutic procedure Seizures (CMS/HCC) Alcohol abuse, uncomplicated Benign neoplasm of prostate Epilepsy, unspecified, not intractable, without status epilepticus (CMS/HCC) Difficulty in walking, not elsewhere classified Muscle weakness (generalized) Other specified rheumatoid arthritis, unspecified site (CMS/HCC) Syncope and collapse Alzheimer's disease with early onset (CMS/HCC) Cognitive communication deficit COVID-19 Dysphagia, oropharyngeal phase Hemiplegia and 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- dominant side (CMS/HCC) History of CVA (cerebrovascular accident) Paroxysmal tachycardia, unspecified (CMS/HCC) Status epilepticus (CMS/HCC) Acute encephalopathy Sepsis without acute organ dysfunction (CMS/HCC) Bacteremia Ulcer of left foot (CMS/HCC) PAD (peripheral artery disease) (CMS/HCC) Protein calorie malnutrition (CMS/HCC) Abdominal pain, generalized Lethargy History of stroke Pulmonary infiltrate Acute on chronic respiratory failure with hypoxia (CMS/HCC) Protein-calorie malnutrition, unspecified severity (CMS/HCC) Aspiration into airway Aspiration pneumonitis (CMS/HCC) Leukocytosis, unspecified type Tachycardia Hypoxia Acute respiratory failure with hypoxia (CMS/HCC) Pneumonia of right lower lobe due to infectious organism Atelectasis, right Contrast-induced nephropathy Zenker diverticula Hypernatremia Hyperkalemia Tachypnea SOB (shortness of breath) Past Medical History: Diagnosis Date ??? CVA (cerebral vascular accident) (CMS/HCC) ??? HTN (hypertension) ??? Seizure ([facility]/HCC) SUBJECTIVE: Pt mouths, I love you. PATIENT GOALS: unable to obtain 2/2 cognitive deficits Home Situation: Type of Residence: Custodial Equipment at Home: Facility Equipment Prior Level of Functioning: Have Help at Home?: Yes, there is help at home now Who assists you at home?: Staff How often is assistance provided?: daily Pain Assessment: Pain Location #1 Pain Scale/Observation: Numeric (0-10) Pain Rating Score #1: 0 Sedation Level #1: 1-Awake and alert Pain Intervention(s): Declined Intervention OBJECTIVE: At start of therapy session, patient found in bed and with no alarm General Appearance: 62 year old male found supine in bed, NAD. LDA: IV's: Peripheral line, Telemetry, Oxygen Tracheostomy and PEG Tube Edema: No edema noted Vitals: (*Assess the 3 levels of oxygen saturations both for room air and 02 unless rest on room air is 88% or less). Rest BP: 106/71 HR: 78 Sp02 97% 7L @ 30% via trach collar Ex/Gait/Activity Without 02 BP: ?? HR: 81 Sp02 96% 7L @ 30% via trach collar Post Activity BP: 144/84 HR: 82 Sp02 96% 7L @ 30% via trach collar Observations: Vitals monitored throughout session. Pt without any SOB, dizziness, or signs/symptomsof distress. RN notified and aware at end of session. Mental Status/Cognition: Level of Consciousness-Adult: Alert Orientation Level: Oriented to Person;Disoriented to Situation;Disoriented to Place;Disoriented to Time Cognition: Follows Commands-inconsistent;Processing-delayed;Judgement-decreased;Safety awareness-decreased Attention Span: Difficulty attending to directions Memory: Decreased short term memory Following Commands: Follows one step commands with repetition/cues (25% of the time) Safety Judgement: Decreased awareness of need for safety Awareness of Errors: Decreased awareness of deficits UE ROM: RUE: PROM WFL, weak grasp, no other AROM observed LUE: PROM WFL, no AROM observed Strength: RUE: deficits noted LUE: 0/5 UE Tone RUE: no abnormal tone noted LUE: moderate Coordination: deficits noted for serial opposition UE Proprioception RUE: Absent LUE: Absent UE Sensation RUE: no complaints of numbness or tingling LUE: no complaints of numbness or tingling Perception: Inattention/Neglect: Cues to attend right visual field;Cues to attend left visual field (poor tracking and eye contact observed) Visual/Motor Tracking: Unable to test secondary due to decreased visual attention Mobility: A gait belt and non-slip socks were used for all out of bed activity this date. Bed Mobility: Rolling: Total Assistance Supine to Sit: Total Assistance;X 2 (to long sit) with HOB in semi-fowlers position Sit to Supine: Total Assistance;X 2 (long sit to supine) Balance: Balance Scales/Tests Used: Sitting: Static/Dynamic Sitting - Static: Poor Activities of Daily Living Feeding: Activity Does Not Occur (NPO) Oral Facial Hygiene: Total Assistance (facial hygiene) Bathing: Activity Does Not Occur Upper Body Dressing: Total Assistance (adjusting gown) Lower Body Dressing: Total Assistance (donning/doffing green heel protectant boot) Toileting: Activity Does Not Occur Splint Issued/Checked: none ACTIVITY TOLERANCE: Patient's activity tolerance: poor. TREATMENT / EDUCATION / INTERVENTIONS: While performing OT, Patient was instructed in:functional mobility training, self-care training, energy conservation, safety awareness/fall precautions Presented to patient who demonstrates Poor understanding of instructions given. INFORMED CONSENT TO TREATMENT: Plan of care is discussed but patient with questionable understanding. ASSESSMENT: Patient demonstrated independence/ baseline with activities of daily living. No continued IP Occupational Therapy indicated at this time. Plan: Plan: Discontinue IP OT If patient is discharged from the facility, this note serves as a discharge summary if further occupational therapy visits did not occur. Refer to filed flowsheet for further details. Following therapy session, patient left in bed, with call light within reach, with RN, Timothy aware. * Jake Mosqueda MD - 09/01/2022 8:28 AM CDT MICU Progress Note 09/01/2022 8:28 AM Patient: Bi Tabor (:1960) Room: [facility] Admit Date: 08/28/2022. Hospital Day: 4 CC: Acute on chronic hypoxic respiratory failure Hospital Course: Mr. Tabor is a 62-year-old male with PMHx of CVA with residual left-sided deficits, HTN, seizure disorder, dementia, dysphagia with recurrent aspiration s/p PEG tube, PVD s/p left AKA c/b non-healingfoot wound (02/2022), Zenker diverticulum s/p diverticulectomy (07/15/2022), chronic hypoxic respiratory failure s/p tracheostomy (07/15/2022) who presented to ED on 08/28/2022 with SOB. Pt was tachypneic with increased work of breathing. SNF did not have suction instruments, so he was brought to ED. In the ED, vitals were Temp 100.2 degrees, BP 133/87, HR 121, RR 27, SpO2 95% on 10 L. Labs showed WBC 15.4, hemoglobin 11.8, platelets 143, creatinine 0.51, troponin 10 --> 9, procalcitonin <0.02. UA showed 2+ LE, 21-50 WBC, trace bacteria. Blood cultures positive for gram- positive in clusters. CXR showed large right pleural effusion resulting in near complete collapse of the right lung and ill-defined/GGO of the remaining aerated portion of the RUL. Pt started on IV vancomycin and cefepime. MRSA PCR positive. Blood cultures x2 positive for staphylococcus capitis. Sputum culture positivefor MRSA and pseudomonas. Urine culture positive for pseudomonas. ID consulted. TTE without vegetations. Interval History: No acute events overnight. Pt has been afebrile. He is more interactive this morning. Breathing andabdominal discomfort are improved. Pt remains on trach collar 8 L. Objective: Vitals: 09/01/22 0400 09/01/22 0500 09/01/22 0600 09/01/22 0700 BP: 146/82 137/81 119/69 128/74 Pulse: 87 80 80 84 Resp: 18 16 19 17 Temp: 98.5 ??F (36.9 ??C) SpO2: 97% 99% 99% 96% Weight: Height: Physical Exam General - NAD, cachectic, able to answer questions and follow commands HEENT - NC/AT, EOMI Chest - On trach collar. Coarse breath sounds bilaterally CV - RRR. No murmurs Abdomen - PEG tube in LUQ Musculoskeletal - s/p right AKA Extremities - No clubbing, no cyanosis, no edema Skin - No rashes, lesions or jaundice Neurologic - CN II-XII grossly intact. No focal deficits Psych - Appropriate mood and affect Labs: CBC: Recent Labs Component Name 09/01/22 0205 08/31/22 0057 08/30/22 0039 WBC 6.3 11.4* 11.8* HGB 8.8* 8.8* 8.9* HCT 26.7* 27.1* 27.8* BMP: Recent Labs Component Name 09/01/22 0205 08/31/22 0057 08/30/22 0039 08/28/22 2224 NA 141 144 141 142 CL 109* 107 111* 111* CO2 24 BUN 9 9 12 11 CREATININE 0.34* 0.37* 0.45* 0.50* CALCIUM 8.9 9.1 9.4 8.8 PHOS 2.8 2.7* - 3.5 Hepatic: Recent Labs Component Name 08/28/22 2224 08/28/22 1251 06/30/22 1039 ALT 5 6 5 AST 13 14 13 TBILI 0.6 0.5 0.3 PROT 6.0 7.5 6.2 ALB 2.0* 2.5* 2.2* ALKPHOS 67 88 65 Coagulation: Recent Labs Component Name 08/28/22 2224 06/27/22 2215 05/11/22 1309 PT 15.2* 12.8 13.5 INR 1.2 1.0 1.0 Cardiac Markers: Recent Labs Component Name 07/11/22 0040 07/01/22 1634 06/28/22 0141 06/27/22 2215 05/30/22 1750 03/08/22 1455 12/31/21 0412 CKTOTAL 49 42 - - - - 77 TROPONINI - - <0.010 <0.010 <0.010 - - - = values in this interval not displayed. Micro: Reviewed. Imaging: Reviewed. Assessment: History of CVA (cerebrovascular accident) POA: Yes Paroxysmal tachycardia, unspecified (CMS/HCC) POA: Yes Seizure (CMS/HCC) POA: Yes Sepsis without acute organ dysfunction (CMS/HCC) POA: Yes Protein calorie malnutrition (CMS/HCC) POA: Yes Pulmonary infiltrate POA: Yes Acute on chronic respiratory failure with hypoxia (CMS/HCC) POA: Yes Tachycardia POA: Yes Tachypnea POA: Yes SOB (shortness of breath) POA: Yes PLAN: Neurological: #Seizure disorder -Home meds: Lacosamide 200 mg BID, levetiracetam 2000 mg BID, clobazam 20 mg BID -Divalproex 500 mg Q6H started on 08/30. Valproate level <13 Plan: -Continue above Cardiovascular: No active issues. Most recent TTE on 08/30/2022 showed EF 58%, grade I DD, no vegetations Pulmonary: #Right-sided pleural effusion #AHRF #s/p tracheostomy -See presentation and workup above. Pt started on vancomycin and cefepime on admission. Sputum culture positive for MRSA and pseudomonas -No window on bedside thoracentesis on 08/30 Plan: -Continue antibiotics above. Pt is also on levalbuterol nebulizers Q6H and hypertonic saline nebulizer BID -Can consider pulmonology consult on floor for trach weaning GI: #Zenker diverticulum s/p diverticulectomy (06/2022) #Aspiration s/p PEG tube Plan: -Continue tube feeds with [facility] Renal: No active issues. Endocrine: BG goal 140-180. Hypoglycemia protocol ID: #Staph capitis bacteremia #Pesudomonas UTI #MRSA and pseudomonas pneumonia #Leukocytosis -Blood cultures x2 from 08/28 positive for staph capitis. Unclear source at this time. Pt does not have CVC or arterial line -UA showed 2+ LE, 21-50 WBC, trace bacteria. Urine culture positive for pseudomonas -Sputum culture positive for MRSA and pseudomonas -Repeat blood cultures x2 from 08/30 showed no growth Plan: -See TTE above -Follow up ID recs, but pt will likely need another set of blood cultures to confirm clearance. Antibiotics as above Heme/Onc: #Anemia #Thrombocytopenia Plan: -Continue to monitor. Transfuse for hemoglobin <7 or platelets <10 FEN: Monitor electrolytes and replete PRN Lines: Trach, PEG tube, PIV x3, condom catheter Prophylaxis: Aspiration precautions with HOB elevation by 30 degrees GI prophyalxis with pantoprazole DVT prophyalxis with SCDs, enoxaparin Diet: Tube feeds Activity: Ambulate/up ad merline Disposition: TTF Code Status: Full code Jake Mosqueda MD Associated attestation - Artemio Abarca MD - 09/01/2022 6:43 PM CDT I saw and evaluated the patient. I reviewed the resident???s note and agree with findings and plan as documented in the resident???s note Artemio Abarca MD Division of Pulmonary, Critical Care, & Sleep Medicine [facility] P: [phone] 09/01/2022 , 6:43 PM * Becki Madera RN - 08/31/2022 9:54 AM CDT Problem: Impaired Gas Exchange Goal: Resp rate/effort will be within specified limits Outcome: Progressing Problem: Ineffective Airway Clearance Goal: Patent airway Outcome: Progressing Problem: Fall Risk Goal: Fall risk and fall related injury risk are minimized (interventions related to the fall risk can be found in the flowsheet documentation) Outcome: Progressing Problem: Nutrient: Inadequate protein-energy intake Goal: Total intake will meet estimated nutrient needs Outcome: Progressing * Jake Mosqueda MD - 08/31/2022 6:42 AM CDT MICU Progress Note 08/31/2022 6:42 AM Patient: Bi Tabor (:1960) Room: [facility] Admit Date: 08/28/2022. Hospital Day: 3 CC: Acute on chronic hypoxic respiratory failure Hospital Course: Mr. Tabor is a 62-year-old male with PMHx of CVA with residual left-sided deficits, HTN, seizure disorder, dementia, dysphagia with recurrent aspiration s/p PEG tube, PVD s/p left AKA c/b non-healingfoot wound (02/2022), Zenker diverticulum s/p diverticulectomy (07/15/2022), chronic hypoxic respiratory failure s/p tracheostomy (07/15/2022) who presented to ED on 08/28/2022 with SOB. Pt was tachypneic with increased work of breathing. SNF did not have suction instruments, so he was brought to ED. In the ED, vitals were Temp 100.2 degrees, BP 133/87, HR 121, RR 27, SpO2 95% on 10 L. Labs showed WBC 15.4, hemoglobin 11.8, platelets 143, creatinine 0.51, troponin 10 --> 9, procalcitonin <0.02. UA showed 2+ LE, 21-50 WBC, trace bacteria. Blood cultures positive for gram- positive in clusters. CXR showed large right pleural effusion resulting in near complete collapse of the right lung and ill-defined/GGO of the remaining aerated portion of the RUL. Pt started on IV vancomycin and cefepime. MRSA PCR positive. Sputum gram stain positive for heavy gram-positive cocci and moderate gram-positive bacilli. Interval History: No acute events overnight. Pt has been afebrile. Objective: Vitals: 08/31/22 0300 08/31/22 0400 08/31/22 0500 08/31/22 0600 BP: 99/63 125/77 121/76 116/65 Pulse: 88 93 95 92 Resp: 27 22 22 20 Temp: SpO2: 97% 97% 99% 94% Weight: Height: Physical Exam General - NAD, cachectic, able to answer questions and follow commands HEENT - NC/AT, EOMI Chest - On trach collar. Coarse breath sounds bilaterally CV - RRR. No murmurs Abdomen - PEG tube in LUQ Musculoskeletal - s/p right AKA Extremities - No clubbing, no cyanosis, no edema Skin - No rashes, lesions or jaundice Neurologic - CN II-XII grossly intact. No focal deficits Psych - Appropriate mood and affect Labs: CBC: Recent Labs Component Name 08/31/225608/30/22 0039 08/29/22 0537 WBC 11.4* 11.8* 12.0* HGB 8.8* 8.9* 9.4* HCT 27.1* 27.8* 30.0* BMP: Recent Labs Component Name 08/31/225608/30/22 0039 08/28/224 08/28/22 1251 07/21/22 0218 NA 144 141 142 - 142 CL 107 111* 111* - 109* CO2 23 24 24 - 26 BUN 9 12 11 - 19 CREATININE 0.37* 0.45* 0.50* - 0.53* CALCIUM 9.1 9.4 8.8 - 9.2 PHOS 2.7* - 3.5 - 3.0 - = values in this interval not displayed. Hepatic: Recent Labs Component Name 08/28/22222308/28/22 1251 06/30/22 1039 ALT 5 6 5 AST 13 14 13 TBILI 0.6 0.5 0.3 PROT 6.0 7.5 6.2 ALB 2.0* 2.5* 2.2* ALKPHOS 67 88 65 Coagulation: Recent Labs Component Name 08/28/22222306/27/22 2215 05/11/22 1309 PT 15.2* 12.8 13.5 INR 1.2 1.0 1.0 Cardiac Markers: Recent Labs Component Name 07/11/22 0040 07/01/22 1634 06/28/22 0141 06/27/22 2215 05/30/22 1750 03/08/22 1455 12/31/21 0412 CKTOTAL 49 42 - - - - 77 TROPONINI - - <0.010 <0.010 <0.010 - - - = values in this interval not displayed. Micro: Reviewed. Imaging: Reviewed. Assessment: History of CVA (cerebrovascular accident) POA: Yes Paroxysmal tachycardia, unspecified (CMS/HCC) POA: Yes Seizure (CMS/HCC) POA: Yes Sepsis without acute organ dysfunction (CMS/HCC) POA: Yes Protein calorie malnutrition (CMS/HCC) POA: Yes Pulmonary infiltrate POA: Yes Acute on chronic respiratory failure with hypoxia (CMS/HCC) POA: Yes Tachycardia POA: Yes Tachypnea POA: Yes SOB (shortness of breath) POA: Yes PLAN: Neurological: #Seizure disorder -Home meds: Lacosamide 200 mg BID, levetiracetam 2000 mg BID, clobazam 20 mg BID -Divalproex 500 mg Q6H started on 08/30. Valproate level <13 Plan: -Continue above Cardiovascular: No active issues. Most recent TTE on 03/11/2022 showed EF 47% with abnormal LV segmental wall motion, grade I diastolic dysfunction. Pulmonary: #Right-sided pleural effusion #AHRF #s/p tracheostomy -See presentation and workup above. Pt started on vancomycin and cefepime on admission. Sputum culture positive for MRSA and pseudomonas -No window on bedside thoracentesis on 08/30 Plan: -Continue antibiotics above. Pt is also on levalbuterol nebulizers Q6H and hypertonic saline nebulizer BID -Will need pulmonology consult on floor GI: #Zenker diverticulum s/p diverticulectomy (06/2022) #Aspiration s/p PEG tube Plan: -Continue tube feeds with FWF Renal: No active issues. Endocrine: BG goal 140-180. Hypoglycemia protocol ID: #Staph capitis bacteremia #Pesudomonas UTI #Leukocytosis -Blood cultures x2 from 08/28 positive for staph capitis. Unclear source at this time. Pt does not have CVC or arterial line -UA showed 2+ LE, 21-50 WBC, trace bacteria. Urine culture pending -WBC 15.4 on admission. Likely 2/2 underlying Plan: -Follow up TTE read and repeat blood cultures, as well as ID recs -Antibiotics as above Heme/Onc: #Anemia #Thrombocytopenia Plan: -Continue to monitor. Transfuse for hemoglobin <7 or platelets <10 FEN: Monitor electrolytes and replete PRN Lines: Trach, PEG tube, PIV x3, condom catheter Prophylaxis: Aspiration precautions with HOB elevation by 30 degrees GI prophyalxis with pantoprazole DVT prophyalxis with SCDs, enoxaparin Diet: Tube feeds Activity: Ambulate/up ad merline Disposition: TTF Code Status: Full code Jake Mosqueda MD Associated attestation - Artemio Abarca MD - 08/31/2022 2:30 PM CDT I saw and evaluated the patient. I reviewed the resident???s note and agree with findings and plan as documented in the resident???s note Artemio Abarca MD Division of Pulmonary, Critical Care, & Sleep Medicine [facility] P: [phone] 08/31/2022 , 2:30 PM * Elmo Caicedo SLP - 08/30/2022 11:00 AM CDT [facility] Department of Physical Medicine & Rehabilitation Progress Note Patient: Bi Tabor Med Record Number: [id number] Date of : 1960 Age: [age] year old 08/30/22 1100 Missed Visit Missed Visit Patient continues with copious secretions requiring frequent tracheal suction and not appropriate for PMV eval at this time. ST will follow patient to assess PMV readiness, when able. Elmo Ansari M.A. [facility]-REPORTING COORDINATOR Speech Language Pathologist [phone] * Jake Mosqueda MD - 08/30/2022 6:47 AM CDT MICU Progress Note 08/29/2022 2:00 PM Patient: Bi Tabor (:1960) Room: [facility] Admit Date: 08/28/2022. Hospital Day: 1 CC: Acute on chronic hypoxic respiratory failure Hospital Course: Mr. Tabor is a 62-year-old male with PMHx of CVA with residual left-sided deficits, HTN, seizure disorder, dementia, dysphagia with recurrent aspiration s/p PEG tube, PVD s/p left AKA c/b non-healingfoot wound (02/2022), Zenker diverticulum s/p diverticulectomy (07/15/2022), chronic hypoxic respiratory failure s/p tracheostomy (07/15/2022) who presented to ED on 08/28/2022 with SOB. Pt was tachypneic with increased work of breathing. SNF did not have suction instruments, so he was brought to ED. In the ED, vitals were Temp 100.2 degrees, BP 133/87, HR 121, RR 27, SpO2 95% on 10 L. Labs showed WBC 15.4, hemoglobin 11.8, platelets 143, creatinine 0.51, troponin 10 --> 9, procalcitonin <0.02. UA showed 2+ LE, 21-50 WBC, trace bacteria. Blood cultures positive for gram- positive in clusters. CXR showed large right pleural effusion resulting in near complete collapse of the right lung and ill-defined/GGO of the remaining aerated portion of the RUL. Pt started on IV vancomycin and cefepime. MRSA PCR positive. Sputum gram stain positive for heavy gram-positive cocci and moderate gram-positive bacilli. Interval History: Tmax was 100.5 degrees at 2000. Pt was on trach collar overnight. This morning, he is able to answer questions. He c/o some abdominal pain but says that it always hurts. Pt's nurse also noted some drainage from around his PEG tube. Objective: Vitals: 08/29/22 1000 08/29/22 1100 08/29/22 1200 08/29/22 1238 BP: 140/88 142/81 146/96 Pulse: 102 101 103 103 Resp: Temp: 98.4 ??F (36.9 ??C) SpO2: 95% 93% 97% 96% Weight: Height: Physical Exam General - NAD, cachectic, able to answer questions and follow commands HEENT - NC/AT, EOMI Chest - On trach collar. Coarse breath sounds bilaterally CV - RRR. No murmurs Abdomen - PEG tube in LUQ with some mucus-like drainage but no surrounding erythema Musculoskeletal - s/p right AKA Extremities - No clubbing, no cyanosis, no edema Skin - No rashes, lesions or jaundice Neurologic - CN II-XII grossly intact. No focal deficits Psych - Appropriate mood and affect Labs: CBC: Recent Labs Component Name 08/29/22 0537 08/28/22 1251 07/21/22 0218 WBC 12.0* 15.4* 10.2 HGB 9.4* 11.8* 7.4* HCT 30.0* 37.0 22.9* BMP: Recent Labs Component Name 08/28/22 2224 08/28/22 1251 07/21/22 0218 07/20/22 0305 NA 142 139 142 139 CL 111* 103 109* 106 CO2 24 27 26 25 BUN 11 12 19 23 CREATININE 0.50* 0.51* 0.53* 0.71 CALCIUM 8.8 9.8 9.2 9.4 PHOS 3.5 - 3.0 2.8 Hepatic: Recent Labs Component Name 08/28/224 08/28/22 1251 06/30/22 1039 ALT 5 6 5 AST 13 14 13 TBILI 0.6 0.5 0.3 PROT 6.0 7.5 6.2 ALB 2.0* 2.5* 2.2* ALKPHOS 67 88 65 Coagulation: Recent Labs Component Name 08/28/22222306/27/22 2215 05/11/22 1309 PT 15.2* 12.8 13.5 INR 1.2 1.0 1.0 Cardiac Markers: Recent Labs Component Name 07/11/22 0040 07/01/22 1634 06/28/22 0141 06/27/22 2215 05/30/22 1750 03/08/22 1455 12/31/21 0412 CKTOTAL 49 42 - - - - 77 TROPONINI - - <0.010 <0.010 <0.010 - - - = values in this interval not displayed. Micro: Reviewed. Imaging: Reviewed. Assessment: Tachypnea POA: Unknown SOB (shortness of breath) POA: Unknown PLAN: Neurological: #Seizure disorder -Home meds: Lacosamide 200 mg BID, levetiracetam 2000 mg BID, clobazam 20 mg BID Plan: -Continue above -Pt is also reportedly on divalproex 500 mg Q6H. It is unclear what he was getting at SNF. Will restart and check valproic acid level Cardiovascular: No active issues. Most recent TTE on 03/11/2022 showed EF 47% with abnormal LV segmental wall motion, grade I diastolic dysfunction. Pulmonary: #Right-sided pleural effusion #AHRF #s/p tracheostomy -See presentation and workup above. Pt started on vancomycin and cefepime on admission Plan: -Continue above. Pt is also on levalbuterol nebulizers Q6H and hypertonic saline nebulizer BID -Follow up pending sputum culture -Possible thoracentesis today if good window GI: #Zenker diverticulum s/p diverticulectomy (06/2022) #Aspiration s/p PEG tube Plan: -Continue tube feeds with FWF Renal: No active issues. Endocrine: BG goal 140-180. Hypoglycemia protocol ID: #Gram-positive bacteremia #UTI #Leukocytosis -Blood cultures x2 from 08/28 positive for gram-positive cocci in clusters -UA showed 2+ LE, 21-50 WBC, trace bacteria. Urine culture pending -WBC 15.4 on admission. Likely 2/2 underlying Plan: -Follow up pending cultures and susceptibilities. De-escalate antibiotics as able -ID consulted. Appreciate recs. TTE ordered Heme/Onc: #Anemia #Thrombocytopenia Plan: -Continue to monitor. Transfuse for hemoglobin <7 or platelets <10 FEN: Monitor electrolytes and replete PRN Lines: Trach, PEG tube, PIV x3, condom catheter Prophylaxis: Aspiration precautions with HOB elevation by 30 degrees GI prophyalxis with pantoprazole DVT prophyalxis with SCDs, enoxaparin Diet: Tube feeds Activity: Ambulate/up ad merline Disposition: TTF Code Status: Full code Jake Mosqueda MD Associated attestation - Artemio Abarca MD - 08/30/2022 1:45 PM CDT I saw and evaluated the patient. I reviewed the resident???s note and agree with findings and plan as documented in the resident???s note Artemio Abarca MD Division of Pulmonary, Critical Care, & Sleep Medicine [facility] P: [phone] 08/30/2022 , 1:45 PM * Artemio Abarca MD - 08/29/2022 10:21 PM CDT MICU ATTENDING PROGRESS NOTE Patient seen and examined with the micu team. Please see note for further details. I confirm history, exam, assessment and plan except as I have noted below: Subjective: Arrived overnight Came off the ventilator Tolerating trach collar well Objective: Current vital signs Blood pressure 103/61, pulse 97, temperature (Abnormal) 100.5 ??F (38.1 ??C), temperature source Axillary, resp. rate 23, height 1.829 m (6'), weight 62 kg (136 lb 9.6 oz), SpO2 99 %. Physical Exam General: chronically ill appearing Chest: coarse BL Heart: RRR, Normal S1, S2. No murmur, gallops and/or rubs. Abdomen: + BS, soft, NT, ND. No hepatosplenomegaly Extremities: No edema. Good distal pulses. Data Review: Recent Labs Component Name 08/29/22 0537 08/28/22 2224 07/07/22 1205 07/07/22 0345 07/05/22 0226 07/04/22 0145 04/11/15 0622 04/11/15 0622 WBC 12.0* - - 5.0 - 5.9 - - RBC 2.94* - - 3.12* - 3.28* - - HCT 30.0* - - 28.9* - 30.9* - - ALT - 5 - - - - - - AST - 13 - - - - - - NA - 142 - 144 - 148* - - CL - 111* - 114* - 112* - - CO2 - - - BUN - 11 - 39* - 38* - - CREATININE - 0.50* - 2.85* - 3.55* - - EGFR - >90 - 24* - 19* - - CALCIUM - 8.8 - 8.6 - 9.4 - - TBILI - 0.6 - - - - - - PROT - 6.0 - - - - - - TSH - - - - - 1.955 - - CHOL - - - - - - - 196 LDLCALC - - - - - - - 102* TRIG - - - 102 - - - 63 - = values in this interval not displayed. Radiology: Reviewed Assessment: History of CVA (cerebrovascular accident) POA: Yes Paroxysmal tachycardia, unspecified (CMS/HCC) POA: Yes Seizure (CMS/HCC) POA: Yes Sepsis without acute organ dysfunction (CMS/HCC) POA: Yes Protein calorie malnutrition (CMS/HCC) POA: Yes Pulmonary infiltrate POA: Yes Acute on chronic respiratory failure with hypoxia (CMS/HCC) POA: Yes Tachycardia POA: Yes Tachypnea POA: Yes SOB (shortness of breath) POA: Yes Plan/Recommendations: Airway hyegene Cont abx with cefepime. Stop vanco Wean FIO2 Trach care TF Follow cultures Please see ADMINISTRATIVE SPECIALIST/fellow's/resident's note for more details. Artemio Abarca MD Division of Pulmonary, Critical Care, & Sleep Medicine [facility] P: [phone] 08/29/2022 , 10:21 PM * Vidal Rdz RN - 08/29/2022 6:45 PM CDT Problem: Impaired Gas Exchange Goal: Resp rate/effort will be within specified limits Outcome: Progressing Problem: Ineffective Airway Clearance Goal: Patent airway Outcome: Progressing Problem: Fall Risk Goal: Fall risk and fall related injury risk are minimized (interventions related to the fall risk can be found in the flowsheet documentation) Outcome: Progressing * Yary Abbott SLP - 08/29/2022 9:48 AM CDT [facility] Department of Physical Medicine & Rehabilitation Progress Note Patient: Bi Tabor [facility] Record Number: [id number] Date of : 1960 Age: [age] year old 08/29/22 0947 Missed Visit Missed Visit [place] (Reached out to medical team for clarification of REPORTING COORDINATOR orders. Per consultation with pt not appropriate for PMV orders this date. REPORTING COORDINATOR will f/u) * Susan Good RN - 08/28/2022 11:21 PM CDT Problem: Impaired Gas Exchange Goal: Resp rate/effort will be within specified limits Outcome: Progressing Problem: Ineffective Airway Clearance Goal: Patent airway Outcome: Progressing Problem: Fall Risk Goal: Fall risk and fall related injury risk are minimized (interventions related to the fall risk can be found in the flowsheet documentation) Outcome: Progressing * Vidal Rdz RN - 08/28/2022 7:31 PM CDT Pt arrived in unit shortly after 1800. MICU team at bedside and orders received. All IV lines patent, VSS at arrival. Report given to taper and floater accepting RN. * Karla Guzman RCP - 08/28/2022 6:24 PM CDT Patient was transport to ICU room 439. Report was given to the ICU RT. * Karla Guzman RCP - 08/28/2022 4:59 PM CDT Problem: Impaired Gas Exchange Goal: Resp rate/effort will be within specified limits Outcome: Progressing Problem: Ineffective Airway Clearance Goal: Patent airway Outcome: Progressing Trach will be secured via trach black device to keep airway in place. Size 6.0 trach secured via trach black. Trach bag in room for emergency use with the following supplies: Obturator from indwelling trach, Extra trach tubes (same size and one size smaller), Manual resuscitation bag w/ mask, Suction catheter kit (appropriate size for trach), 10 ml syringe, Sterile 4x4 gauze sponges, Tape and Decannulation Risk paper in supply bag. * Walt Og MD - 08/28/2022 4:12 PM CDT Patient is accepted to MICU. The accepting attending is Dr. Mckenzie. The ER is aware and has resumed care of the patient. Raleigh Og MD Internal Medicine, PGY-3 * Suresh Newman PharmD - 08/28/2022 3:00 PM CDT Vancomycin Per Pharmacy - Initial Note Subjective Bi Tabor is a 62 year old male being initiated on vancomycin. Indication for anti-infective therapy: suspected infection Site of anti-infective therapy: Lower respiratory. Goal trough 15-20 mcg/mL. Objective Day of treatment: 1 Weight: 63.5 kg (140 lb) Estimated Creatinine Clearance: >100 mL/min (based on SCr of 0.51 mg/dL) Ht Readings from Last 1 Encounters: 08/28/22 6' (1.829 m) Recent Labs Component Name 08/28/22 1251 07/21/22 0218 07/20/22 0305 07/05/22 0226 07/04/22 0145 07/03/22 0405 07/02/22 0531 07/01/22 1634 06/30/22 1039 06/30/22 0707 CREATININE 0.51* 0.53* 0.71 - 3.55* 3.16* 1.99* 1.05 0.58* - WBC 15.4* 10.2 9.3 - 5.9 6.9 5.7 7.0 10.7* - VANCORNDM - - - - 22.0 26.1 32.1 - - - VANCTROUGH - - - - - - - 22.7* 25.2* 5.3* - = values in this interval not displayed. Vancomycin Administrations from JUL (last 72 hours) Date/Time Action Medication Dose Rate 08/28/22 1331 $ New Bag/Syringe vancomycin (Vancocin) 1,500 mg in 500 mL NaCl IVPB Premix 1,500 mg 333.33 mL/hr Assessment Target trough: 15-20 mcg/mL This patient has been on multiple vancomycin regimens in the recent past. In February 2022, he was therapeutic on 1250 mg q8h. This regimen was re-initiated in May 2022, and he was slightly supratherapeutic. In June 2022, he was started on 750 mg q12h and was significantly subtherapeutic so his dose was increased to 1000 mg q8h, however he developed an SAMANTHA while on this regimen and became supratherapeutic 2/2 poor clearance. Since his kidney function is stable at this time and most similar to his kidney function in February2022, as well as given multiple positive MRSA swabs in the past, he will be initiated on 1250 mg q8h and kidney function will be monitored very closely. Based on his February pharmacokinetics, this dosing strategy will provide a trough of ~16 mcg/mL. Plan Dosing: Loading Dose: 1500 mg Maintenance Dose: 1250 mg, Dosing Interval: q 8 hr. Monitoring Plan: Will obtain a vancomycin trough level prior to the 5th dose on 08/29 at 2000 and adjust regimen if appropriate. Will continue to monitor patient's renal function. Please contact the [facility] pharmacy department ([phone]) with any questions. Suresh Newman PharmD 08/28/2022 2:43 PM Resources: Vancomycin Protocol documented in this encounter H&P Notes * Kristin Bello MD - 09/14/2022 10:59 PM CDT [facility] INTERNAL MEDICINE HISTORY & PHYSICAL NOTE Date of Admission: 08/28/2022 Patient: Bi Tabor Sex: male Age: [age] year old Date of : 1960 Code Status: Full Code SUBJECTIVE Chief Complaint: Chief Complaint Patient presents with ??? Chronic Lung Disease BIBEMS from [facility] for diminished lung sounds per HI on R side with hx of atelectasis and CVA with trach present. Pt arrives maintaining saturation on 2L non-humidified O2 History of Present Illness: Adapted from Dr. Donahue: Mr. Tabor is a 62 M w/ Hx CVA w/ left sided residual deficits, seizure disorder, dementia, dysphagia w/ recurrent aspiration s/p PEG, zenker divertiuculum s/p diverticulectomy 2022, chronic hypoxic respiratory faiure s/p trach 06/2022, PVD s/p L AKA c/b nonhealing foot wound, HTN who presented to [facility] 08/28 with shortness of breath, tachypnea, and increased WOB d/t lack of suction instruments at SNF.On admission, no elevated WBC, afebrile but CXR w/ large R pleural effusion, R lung atelectasis, RULGGO. Patient was started on broad spectrum abx (vanc, cefe). BCX + staph capitis, SpCx + MRSA and pseudomonas. UCx + pseudomonas. TTE negative for vegetations. Hospital course c/b mucus plugging requiring bronch 09/08, recurrent pseudomonas PNA (repeat SpCx 09/09 + pseudomonas resistant to cefepime).Antibiotics switched to meropenem (09/10-09/17). Weaned off ventilation in ICU. Tolerated trach collar overnight. Stable for TTF. On interview, patient is able to nod yes/no questions, is not able to speak. Denies fevers, chills,chest pain, cough, difficulty breathing, nausea at this time. Labs unremarkable, ABG pH 7.40, CO2 45 in the afternoon today. Recent CXR 2 days prior looks unchanged. Breathing well on 5L 30 O2. Past Medical History: Past Medical History: Diagnosis [...] 03/15/2022 Left; LEFT BKA POSS AKA Family History: No family history on file. [...] Determinants of Health Financial Resource Strain: Unknown ??? Difficulty of Paying Living Expenses: Patient refused Food Insecurity: No Food Insecurity ??? Worried About Running Out of Food in the Last Year: Never true ??? Ran Out of Food in the Last Year: Never true Transportation Needs: No Transportation Needs ??? Lack of Transportation (Medical): No ??? Lack of Transportation (Non-Medical): No Stress: No Stress Concern Present ??? Feeling of Stress : Not at all Housing Stability: Low Risk ??? Unable to Pay for Housing in [...] / 24 hours. ??? artificial tears ophthalmic solution Instill 1 (one) drop into both eyes 3 times daily as needed ??? atorvastatin (Lipitor) 40 MG tablet 1 (one) tablet by Enteral Tube route once daily ??? carboxymethylcellulose sodium (Refresh;Celluvisc) 1 % ophthalmic solution 1 (one) drop by Ophthalmic route once daily as needed ??? cloBAZam (Onfi) 20 MG tablet 1 (one) tablet by Enteral Tube route 2 times daily ??? docusate sodium (Colace) 150 MG/15ML solution Take 15 mL by mouth as needed ??? fluticasone propionate (Flonase) 50 MCG/ACT nasal spray [place] 1 (one) spray into each nostril as needed ??? folic acid (Folvite) 1 MG tablet 1 (one) tablet by Enteral Tube route once daily ??? lacosamide (Vimpat) 200 MG tablet 1 (one) tablet by Enteral Tube route 2 times daily ??? levETIRAcetam (Keppra) 1000 MG tablet 2 (two) tablets by Enteral Tube route 2 times daily ??? loratadine (Claritin) 10 MG tablet Take 1 (one) tablet by mouth once daily ??? midazolam (Nayzilam) 5 MG/0.1ML nasal spray [place] 0.1 mL into the nose as needed for Seizures 1Each 5 ??? oxybutynin (Ditropan) 5 MG tablet 1 (one) tablet by Enteral Tube route 2 times daily 30 tablet 0 ??? tamsulosin (Flomax) 0.4 MG capsule Take 1 (one) capsule by mouth once daily At the same time every day after a meal. Please make sure it is via enteral tube. ??? thiamine (Vitamin B-1) 100 MG tablet 1 (one) tablet by Enteral Tube route once daily Current Medications: Scheduled: ??? 0.9% NaCl 3 mL Intracatheter q8h ??? artificial tears Each Eye q8h ??? atorvastatin 40 mg Enteral Tube QDAY ??? chlorhexidine 15 mL Mouth/Throat BID ??? cloBAZam 20 mg Enteral Tube BID ??? divalproex sprinkle 500 mg Enteral Tube q6h ??? enoxaparin 40 mg Subcutaneous QDAY ??? guaiFENesin 10 mL Enteral Tube q6h ??? lacosamide 200 mg Enteral Tube BID ??? levalbuterol 1.25 mg Inhalation q12h ??? levETIRAcetam 2,000 mg Enteral Tube BID ??? meropenem 1,000 mg Intravenous q8h ??? polyethylene glycol 3350 17 g Enteral Tube BID ??? senna-docusate 1 tablet Enteral Tube BID ??? sodium chloride (Inhalant) 4 mL Inhalation BID Continuous: PRN: ??? SALINE LOCK, INSERT AND MAINTAIN AND 0.9% NaCl AND 0.9% NaCl ??? dextrose IV for hypoglycemia OR dextrose IV for hypoglycemia ??? glucagon ??? glucose (Diabetic Use) ??? glucose (Diabetic Use) gel ??? glucose chew tab Review of Systems: (positives are bolded) CONSTITUTIONAL: fatigue, weight loss, fevers, chills, sweats, malaise, anorexia EYES: visual blurring, double vision, eye pain ENT: hearing loss, tinnitus, vertigo, epistaxis, bleeding gums RESP: shortness of breath, dyspnea on exertion, cough, pleuritic chest pain, wheezing CV: palpitations, syncope, chest pain, edema, orthopnea, PND GI: dysphagia, nausea, vomiting, abdominal pain, constipation, diarrhea : incontinence, dysuria, frequency, hematuria, kidney stone MSK: joint stiffness, swelling, pain NEURO: headaches, syncope, seizures, gait problems, tremor, balance, memory SKIN: rash, itching, bruising, lumps or bumps PSYCH: depressed mood, anxiety, suicidal or homicidal ideation ENDO: cold or heat intolerance, polyphagia, polydipsia, polyuria HEME: anemia, bleeding disorder, abnormal bruising, blood clots OBJECTIVE Vital Signs: Temp: [97.2 ??F (36.2 ??C)-98.4 ??F (36.9 ??C)] 97.9 ??F (36.6 ??C) Pulse: [72-101] 89 Resp: [13-26] 20 BP: (103-142)/(67-86) 142/86 O2 %: [30 %] 30 % Physical Exam: General: alert and oriented, no acute distress, pleasant and cooperative Head: normocephalic, atraumatic Eyes: conjunctivae clear, extraocular muscles intact Mouth/Throat: has trach collar on 5L 30FiO2, oropharynx clear with no lesions, moist mucous membranes Neck: no jugular venous distension, no cervical lympadenopathy, good range of motion CV: regular rate and rhythm, no murmurs appreciated Resp: clear to auscultation bilaterally, no wheezes or crackles heard Abd: soft, nontender, nondistended, normoactive bowel sounds Extremities: no lower extremity edema, no cyanosis Skin: skin color and turgor normal, no rashes or lesions noted Neuro: moving all extremities well, no focal deficits Lab Results: CBC: Recent Labs Component Name 09/14/22 0059 09/13/22 0443 09/12/22 0443 WBC 6.8 6.6 8.9 HGB 9.9* 8.8* 9.1* HCT 30.6* 27.8* 28.8* MCV 98.7* 99.3* 100.3* Coagulation Panel: Recent Labs Component Name 08/28/22 2224 06/27/22 2215 05/11/22 1309 PT 15.2* 12.8 13.5 INR 1.2 1.0 1.0 BMP: Recent Labs Component Name 09/14/22 0059 09/13/22 0443 09/12/22 0443 NA 141 138 140 POTASSIUM 4.2 4.4 4.0 CL 106 105 106 CO2 30* 28 28 BUN 14 16 15 CREATININE 0.41* 0.40* 0.39* CALCIUM 10.1 9.6 9.3 Recent Labs Component Name 09/14/22 0059 09/13/22 0443 09/12/22 0443 MAGNESIUM 1.7 1.7 1.8 Recent Labs Component Name 09/14/22 0059 09/13/22 0443 09/12/22 0443 PHOS 2.9 3.1 2.8 Hepatic Panel: Recent Labs Component Name 08/28/224 08/28/22 1251 06/30/22 1039 03/03/18 1745 01/30/18 1255 11/28/17 0455 10/14/17 1349 AST 13 14 13 - 14 - 18 ALT 5 6 5 - 10 - 9 ALKPHOS 67 88 65 - 75 - 86 TBILI 0.6 0.5 0.3 - 0.4 - 0.6 DBILI - - 0.2 - 0.2 - 0.2 IBILI - - 0.1 - 0.2 - 0.4 ALB 2.0* 2.5* 2.2* - 3.7 - 3.9 - = values in this interval not displayed. ABG: Recent Labs Component Name 09/14/22 1208 09/07/22 0941 08/28/22 1849 PH 7.43 7.44 7.41 PCO2 45 46* 41 PO2 79* 100 79* Amylase/Lipase: Invalid input(s): AMYL, LIPA Thyroid Studies: Recent Labs Component Name 07/04/22 0145 TSH 1.955 Cardiac Enzymes: Recent Labs Component Name 07/11/22 0040 07/01/22 1634 06/28/22 0141 06/27/22 2215 05/30/22 1750 CKTOTAL 49 - - - - TROPONINI - - <0.010 <0.010 <0.010 - = values in this interval not displayed. Lipid Panel: Recent Labs Component Name 04/11/15 0622 LDLCALC 102* HDL 81 Microbiology: Look below Imaging & Studies: Look below ASSESSMENT & PLAN # Acute on chronic hypoxic respiratory failure # MDRO Pneumonia (MRSA, pseudomonas) #s/p Trach - s/p tracheostomy 06/2022 - MRSA and pseudomonas (Spx CX 09/09 +MRSA, +Pseudo; 09/11: +Pseudo, resistant to cefepime) - Previously on Vanc and Cefe -> now on Marycarmen) Plan: - Continue meropenem for 7 day course (EOT 09/10- 09/17) - Continue levalbuterol nebs, HTS, guafenesin, NaCl neb scheduled - Continue trach collar - Frequent suctioning, bronchial hygiene, trach care # Staph capitis bacteremia - resolved # Pseudomonas UTI - resolved - BCx 08/28/22: +Staph capitis. BCX 08/30 negative. - UA Cx 08/29/22: Pseudomonas aeruginosa - Completed 7 day treatment for UTI and bacteremia w/ negative cultures now (Was on vanc and cefe ->now on marycarmen) #Seizure disorder -Home meds: Lacosamide 200 BID, keppra 2 g BID, clobazam 20 BID, depakote 500 Plan: - Continue home meds lacosamide, keppra, clobazam, depakote - Monitor for seizures ?? #Hx CVA c/b L sided deficits - Continue home atorva 40mg daily #HFpEF #Hx of HTN - Echo 08/2022: G1DD on TTE - Not currently on home BP meds - Normotensive on admisson Plan: - CTM # Recurrent aspiration s/p PEG # Zenker diverticulum s/p diverticulectomy 06/2022 - Continue TF - Bowel regimen: miralax and senna BID scheduled #PVD #s/p L AKA c/b nonhealing foot wound - Wound care following # Normocytic Anemia #Thrombocytopenia - resolved - Likely JOSE G and AoCD - Trend CBC - Transfuse for Hb < 7, plt < 10 Code: Full Diet: TF Electrolytes: Replete PRN PPx: Lovenox Access: PIV Dispo: Admit to Medicine. Back to halfway. The above assessment and plan will be discussed with the attending. This note is not final until attested by attending physician. Kristin Bello MD Internal Medicine Resident [facility] 09/15/2022 1:00 AM Associated attestation - Petra Fuentes MD - 09/15/2022 4:41 PM CDT I have seen and examined the patient. I agree with the assessment and plan as documented by the resident. History of CVA (cerebrovascular accident) POA: Yes Paroxysmal tachycardia, unspecified (CMS/HCC) POA: Yes Seizure (CMS/HCC) POA: Yes Sepsis without acute organ dysfunction (CMS/HCC) POA: Yes Protein calorie malnutrition (CMS/HCC) POA: Yes Pulmonary infiltrate POA: Yes Acute on chronic respiratory failure with hypoxia (CMS/HCC) POA: Yes Tachycardia POA: Yes Tachypnea POA: Yes SOB (shortness of breath) POA: Yes Please see note for further details. Discussed with care coordination team. Total time spent more than 38 minutes, more than 50% spent for coordinating patient care and counseling about treatment plan. Petra Fuentes MD, MRCP (), FACP, FRCP Type[employer] Ribbon Winderlicensed massage therapist Please feel free to text page me through [employer]. Happy to answer your questions. * Hawk Salmon, [employer] PROGRAMMER-SUPERVISOR [employer] - 08/28/2022 8:20 PM CDT Images from the original note were not included. MICU Consult History & Physical Note Primary Team: Cardiac Surgery 08/28/2022 Patient: Bi Tabor (:1960) [facility] Admit Date: 08/28/2022. Hospital Day: 0 Postop Day: * No surgery found * CC: Chief Complaint Patient presents with ??? Chronic Lung Disease BIBEMS from [facility] for diminished lung sounds per NH on R side with hx of atelectasis and CVA with trach present. Pt arrives maintaining saturation on 2L non-humidified O2 HPI* is a 62 year old male with a past medical history that includes CVA (with residual L-sidedand HTN who is presenting to the ED for evaluation of shortness of breath. Patient is BIBEMS from [facility] for evaluation after the patient's trach was unable to be properly suctioned. RN reports that thepatient was found in his room this morning, when he was tachypneic with increased work of breathing. On examination, patient is nonverbal and no acute distress. No family at the bedside. Hemodynamically stable on arrival. MICU4 was consulted for critical care recommendations. *Information obtained from chart review Past Medical History Past Medical History: Diagnosis [...] BKA POSS AKA Social History Social History Socioeconomic History ??? [...] Determinants of Health Financial Resource Strain: Unknown ??? Difficulty of Paying Living Expenses: Patient refused Food Insecurity: No Food Insecurity ??? Worried About Running Out of Food in the Last Year: Never true ??? Ran Out of Food in the Last Year: Never true Transportation Needs: No Transportation Needs ??? Lack of Transportation (Medical): No ??? Lack of Transportation (Non-Medical): No Stress: No Stress Concern Present ??? Feeling of Stress : Not at all Housing Stability: Low Risk ??? Unable to Pay for Housing in the Last Year: No ??? Number of Places Lived in the Last Year: 1 ??? Unstable Housing in the Last Year: No Family History No family history on file. Allergies Allergies Allergen Reactions ??? Clonazepam Psychiatric hallucinations Home Medications Medications Prior to Admission Medication Sig Dispense Refill ??? acetaminophen (Tylenol) 500 MG tablet 1 (one) tablet by Enteral Tube route every 6 hours as needed Maximum allowable Acetaminophen amount = 4 Grams (4000 mg) / 24 hours. ??? artificial tears ophthalmic solution Instill 1 (one) drop into both eyes 3 times daily as needed ??? atorvastatin (Lipitor) 40 MG tablet 1 (one) tablet by Enteral Tube route once daily ??? carboxymethylcellulose sodium (Refresh;Celluvisc) 1 % ophthalmic solution 1 (one) drop by Ophthalmic route once daily as needed ??? cloBAZam (Onfi) 20 MG tablet 1 (one) tablet by Enteral Tube route 2 times daily ??? docusate sodium (Colace) 150 MG/15ML solution Take 15 mL by mouth as needed ??? fluticasone propionate (Flonase) 50 MCG/ACT nasal spray [place] 1 (one) spray into each nostril as needed ??? folic acid (Folvite) 1 MG tablet 1 (one) tablet by Enteral Tube route once daily ??? lacosamide (Vimpat) 200 MG tablet 1 (one) tablet by Enteral Tube route 2 times daily ??? levETIRAcetam (Keppra) 1000 MG tablet 2 (two) tablets by Enteral Tube route 2 times daily ??? loratadine (Claritin) 10 MG tablet Take 1 (one) tablet by mouth once daily ??? midazolam (Nayzilam) 5 MG/0.1ML nasal spray [place] 0.1 mL into the nose as needed for Seizures 1Each 5 ??? oxybutynin (Ditropan) 5 MG tablet 1 (one) tablet by Enteral Tube route 2 times daily 30 tablet 0 ??? tamsulosin (Flomax) 0.4 MG capsule Take 1 (one) capsule by mouth once daily At the same time every day after a meal. Please make sure it is via enteral tube. ??? thiamine (Vitamin B-1) 100 MG tablet 1 (one) tablet by Enteral Tube route once daily Review of Systems (positives are in bold) Unable to obtain medical history secondary to nonverbal Objective Temp: 97.8 ??F (36.6 ??C) (08/28 1800) Pulse: 94 (08/28 1899) Resp: 22 (08/28 1899) BP: 103/67 (08/28 1899) O2 %: 50 % (08/28 1800) SpO2: 98 % (08/28 1899) No intake or output data in the 24 hours ending 08/28/222021 Respiratory Support $ O2 DEVICE: Heated;Humidified;Mask - Tracheal/Trach Collar $ O2 % (FiO2): 50 % O2 %: 50 % Physical Exam (positives in bold) General - NAD, afebrile, non cachectic HEENT - NC/AT, EOMI, clear conjunctivae, moist mucous membranes Neck - Supple, no LAD, no JVD Chest - CTAB no crackles or wheezes bilaterally CV - RRR no murmurs, radial and DP pulses 2/4, good capillary refill Abdomen - Soft, NT/ND, +BS, no organomegaly Musculoskeletal - Moves all four extremities Extremities - No c/c/e Skin - warm, dry, and intact Neurologic - non-verbal Psych - non-verbal Labs CBC: Recent Labs Component Name 08/28/22 1251 07/21/22 0218 07/20/22 0305 WBC 15.4* 10.2 9.3 HGB 11.8* 7.4* 7.8* HCT 37.0 22.9* 23.1* BMP: Recent Labs Component Name 08/28/22 1251 07/21/22 0218 07/20/22 0305 07/19/22 0322 NA 139 142 139 140 POTASSIUM 4.5 3.9 3.6 3.9 CL 103 109* 106 108* CO2 27 26 25 25 BUN 12 21 CREATININE 0.51* 0.53* 0.71 0.86 CALCIUM 9.8 9.2 9.4 8.9 GLUCOSE 100 113 108 109 PHOS - 3.0 2.8 2.8 MAGNESIUM - 1.6 1.6 1.7 Hepatic: Recent Labs Component Name 08/28/22 1251 06/30/22 1039 06/27/22 2215 ALT 6 5 6 AST 14 13 19 TBILI 0.5 0.3 0.3 PROT 7.5 6.2 8.3 ALB 2.5* 2.2* 3.4 ALKPHOS 88 65 95 Coagulation: Recent Labs Component Name 06/27/22 2215 05/11/22 1309 03/11/22 1059 PT 12.8 13.5 15.4* INR 1.0 1.0 1.2 Cardiac Markers: Recent Labs Component Name 07/11/22 0040 07/01/22 1634 06/28/22 0141 06/27/22 2215 05/30/22 1750 03/08/22 1455 12/31/21 0412 CKTOTAL 49 42 - - - - 77 TROPONINI - - <0.010 <0.010 <0.010 - - - = values in this interval not displayed. ABGs: Recent Labs Component Name 08/28/22 1849 07/06/22 0518 07/05/22 2242 02/25/21 1212 04/11/15 0622 PH 7.41 7.48* 7.48* - 7.38 PCO2 41 32* 33* - 36 PO2 79* 69* 163* - 134* HCO3 - - - - 20.9* FIO2 50.0 60.0 100.0 - 20.0 - = values in this interval not displayed. Micro Microbiology Results (Displays last 21 days for this encounter ONLY) Procedure Component Value - Date/Time CULTURE SPUTUM+GRAM STAIN [[id number]] Lab Status: No result Specimen: Microbiology from Sputum Suctioned CULTURE URINE [[id number]] Lab Status: No result Specimen: Urine Cath Straight MRSA DNA PCR [[id number]] (Abnormal) Collected: 08/28/22 1442 Lab Status: Final result Specimen: Microbiology from Nasal Updated: 08/28/221951 MRSA DNA by PCR Detected Narrative: 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 CULTURE BLOOD [[id number]] Collected: 08/28/22 1251 Lab Status: In process Specimen: Blood Peripheral Updated: 08/28/22 1302 CULTURE BLOOD [[id number]] Collected: 08/28/22 1238 Lab Status: In process Specimen: Blood Peripheral Updated: 08/28/22 1302 SARS-COV-2 (COVID-19)+INFLU A+B PCR RAPID [[id number]] (Normal) Collected: 08/28/22 1220 Lab Status: Final result Specimen: Microbiology from Nasopharyngeal Updated: 08/28/22 1308 COVID-19 PCR Not detected Influenza A Rapid [...] acid amplification assay performance was validated by [facility]. This test has been authorized [...] this EUA assay are available upon request. Imaging I have personally reviewed the pertient imaging Assessment Tachypnea POA: Unknown SOB (shortness of breath) POA: Unknown Recommendations Neuro #Seizures #Non-Verbal -Notify team for LOC/change in neuro status, consider CTH if indicated -Sedation and Pain mgmt per primary Cardiac -Management per Primary Team. Pulm #SOB #Tachypnea #Hx of MRSA #Tracheostomy s/p trach collar #Pneumonia -continue Vancomycin -continue Cefepime -Monitor for respiratory distress, HOB >30??, SpO2 >92% -Extubation per Primary -IS 10x/hr and OOB to chair TID once extubated. -CT management per primary GI -NPO at this time. After extubation, bedside swallow and ADAT Renal -Monitor I&O's, Daily BMP, Mg, Phos Endocrine -BGM goal 140-180 mg/dL -Insulin gtt, transition to SSI when tolerating PO intake ID #UTI -continue vancomycin and cefepime -UA cultures pending -Jensen for accurate UOP Heme/Onc -Monitor CBC. Transfuse for Hgb <7, plt <10 FEN -Monitor electrolytes QD, Replace K<4, Mg<2, Phos<3 LDA per Primary: Peripheral IV Left Forearm (Active) Placement Date/Time: 08/28/22 1248 Orientation: Left Location: Forearm Name/Credentials of person who placed: Aureliano SIMON IV Catheter Size: 18 Gauge Technique: Anatomical Landmarks;Ultrasound Guidance Number of start attempts: 1 Procedure Toleran... Number of days: 0 Peripheral IV Anterior;Distal;Left;Upper Arm (Active) Placement Date/Time: 08/28/22 1830 Orientation: Anterior;Distal;Left;Upper Location: Arm IV Catheter Size: 18 Gauge Technique: Ultrasound Guidance Number of start attempts: 1 Local Anesthetic Used?: None Procedure Tolerance: Well Number of days: 0 Peripheral IV Posterior;Right Hand (Active) Placement Date/Time: 08/28/22 1825 Orientation: Posterior;Right Location: Hand IV Catheter Size: 22Gauge Technique: Anatomical Landmarks Number of start attempts: 1 Local Anesthetic Used?: None Procedure Tolerance: Well Number of days: 0 Enteral - Percutaneous Endoscopic Gastrostomy Abdomen;Midline;Upper (Active) Placement Date/Time: 03/25/22 1654 Name/Credentials of person who placed: Jolynn Ann MD Type: Percutaneous Endoscopic Gastrostomy Tube Location: Abdomen;Midline;Upper Size (FR): 24 Procedure Tolerance: Well Number of days: 156 Trach Shiley (Active) Placement Date/Time: 07/15/22 0943 Person who placed: DR CALLAHAN Brand: Christine Cuff Type: Air Trach size: 6 MM Inner Cannula Size: 7.5 FR Procedure Tolerance: General Anesthesia Number of days: 44 Condom Urinary Catheter 08/28/22 1100 (Active) Placement Date/Time: 08/28/22 1100 Size: Medium Procedure Tolerance: Well Number of days: 0 Prophylaxis: Aspiration precautions: HOB >30?? GI prophylaxis: Protonix DVT prophylaxis: SCD's, Enoxaparin Diet: DIET NPO Except: NO EXCEPTIONS DIET TUBE FEEDING CONTINUOUS Activity: Up as tolerated, PT/OT when able Disposition: Primary Team Code Status: Full Code Hawk Gonzalez Viky, KOLTON-BELINDA 08/28/2022 8:22 PM Nurse Practitioner, MICU 4 Associated attestation - Elmo Ozuna MD - 08/30/2022 2:40 AM CDT Medical ICU Attending Note Date of Service: 08/28 I have seen and examined the patient with the resident. I agree with the resident/fellow note except for the following additions/corrections. In brief, Bi Tabor is a 62 year old male admitted to the ICU for ventilator dependent with a urinary tract infection. Patient is nonverbal at baseline who came in from the halfway for concern for increased work of breathing. This was not observed in the ER or the ICU. A UA was sent which is consistent with urinary tract infection due the fact the patient is vent dependent the patient wasadmitted to the medical ICU. Allergies: Allergies Allergen Reactions Clonazepam Psychiatric hallucinations [...] Determinants of Health Financial Resource Strain: Unknown Difficulty of Paying Living Expenses: Patient refused Food Insecurity: No Food Insecurity Worried About Running Out of Food in the Last Year: Never true Ran Out of Food in the Last Year: Never true Transportation Needs: No Transportation Needs Lack of Transportation (Medical): No Lack of Transportation (Non-Medical): No Stress: No Stress Concern Present Feeling of Stress : Not at all Housing Stability: Low Risk Unable to Pay for Housing in the [...] mg) / 24 hours. artificial tears ophthalmic solution Instill 1 (one) drop into both eyes 3 times daily as needed atorvastatin (Lipitor) 40 MG tablet 1 (one) tablet by Enteral Tube route once daily carboxymethylcellulose sodium (Refresh;Celluvisc) 1 % ophthalmic solution 1 (one) drop by Ophthalmic route once daily as needed cloBAZam (Onfi) 20 MG tablet 1 (one) tablet by Enteral Tube route 2 times daily docusate sodium (Colace) 150 MG/15ML solution Take 15 mL by mouth as needed fluticasone propionate (Flonase) 50 MCG/ACT nasal spray [place] 1 (one) spray into each nostril as needed folic acid (Folvite) 1 MG tablet 1 (one) tablet by Enteral Tube route once daily lacosamide (Vimpat) 200 MG tablet 1 (one) tablet by Enteral Tube route 2 times daily levETIRAcetam (Keppra) 1000 MG tablet 2 (two) tablets by Enteral Tube route 2 times daily loratadine (Claritin) 10 MG tablet Take 1 (one) tablet by mouth once daily midazolam (Nayzilam) 5 MG/0.1ML nasal spray [place] 0.1 mL into the nose as needed for Seizures 1 Each 5 oxybutynin (Ditropan) 5 MG tablet 1 (one) tablet by Enteral Tube route 2 times daily 30 tablet 0 tamsulosin (Flomax) 0.4 MG capsule Take 1 (one) capsule by mouth once daily At the same time every day after a meal. Please make sure it is via enteral tube. thiamine (Vitamin B-1) 100 MG tablet 1 (one) tablet by Enteral Tube route once daily Physical Exam: BP 136/83 Pulse 96 Temp 97.8 ??F (36.6 ??C) (Axillary) Resp 26 Ht 1.829 m (6') Wt 62 kg (136 lb 9.6 oz) SpO2 96% General - NAD, afebrile, non cachectic HEENT - NC/AT, EOMI, clear conjunctivae, moist mucous membranes Neck - Supple, no LAD, no JVD Chest - CTAB no crackles or wheezes bilaterally CV - RRR no murmurs, radial and DP pulses 2/4, good capillary refill Abdomen - Soft, NT/ND, +BS, no organomegaly Musculoskeletal - Moves all four extremities Extremities - No c/c/e Skin - warm, dry, and intact Neurologic - non-verbal Data: Laboratory Results: Recent Labs Component Name 08/29/22 0537 08/28/22 1251 07/21/22 0218 WBC 12.0* 15.4* 10.2 HGB 9.4* 11.8* 7.4* HCT 30.0* 37.0 22.9* PLTCOUNT 112* 143* 252 Recent Labs Component Name 08/28/22222306/27/22221405/11/22 1309 PT 15.2* 12.8 13.5 Recent Labs Component Name 08/28/22222306/27/22221405/11/22 1309 INR 1.2 1.0 1.0 Recent Labs Component Name 08/28/224 08/28/22 1251 07/21/22 0218 07/20/22 0305 POTASSIUM 3.9 4.5 3.9 3.6 CO2 24 27 26 25 BUN 11 12 19 23 CREATININE 0.50* 0.51* 0.53* 0.71 GLUCOSE 86 100 113 108 CALCIUM 8.8 9.8 9.2 9.4 PHOS 3.5 - 3.0 2.8 Recent Labs Component Name 08/28/22 2224 07/21/22 0218 07/20/22 0305 MAGNESIUM 1.7 1.6 1.6 Recent Labs Component Name 08/28/22 2224 08/28/22 1251 06/30/22 1039 ALKPHOS 67 88 65 ALT 5 6 5 AST 13 14 13 Recent Labs Component Name 07/11/22 0040 07/01/22 1634 06/28/22 0141 06/27/22 2215 05/30/22 1750 03/08/22 1455 12/31/21 0412 CKTOTAL 49 42 - - - - 77 TROPONINI - - <0.010 <0.010 <0.010 - - - = values in this interval not displayed. ABG: Recent Labs Component Name 08/28/22 1849 07/06/22 0518 07/05/22 2242 UPA2ZEI 26.0 24 25 FIO2 50.0 60.0 100.0 I have personally reviewed the pertient labs and imaging. Tachypnea POA: Unknown SOB (shortness of breath) POA: Unknown Plan: Hospital-acquired pneumonia -continue Vancomycin -continue Cefepime - also MRSA swab to hopefully deescalate vancomycin - follow-up on culture Possible urinary tract infection - follow-up on UA Dispo: ICU for continued level care Code status: Full Critical Care Time: 31 Pt. is at high risk for complications [...] for determining treatment decisions. Elmo Ozuna MD Type[employer] Winder of Emergency Medicine Division of Pulmonary, Critical Care and Sleep Medicine [facility] documented in this encounter Procedure Notes * Dionne Pyle DO - 09/08/2022 3:35 AM CDTProcedure(s): BRONCHOSCOPY DIAGNOSTIC Bronchoscopy Procedure Note Pre-op Diagnosis: Mucous Plugging. Surgeon: Dionne Pyle DO Sedation/Analgesia: fentanyl, propofol Procedure Details Informed consent was obtained for the procedure, including possible sedation. Risks of hypoxemia, lung injury/perforation, hemorrhage, infection, arrhythmia, and adverse drug reaction were discussed. Time-Out Process performed, verified patient identification, verified procedure, verified correct patient position, special equipment available. Prior to the administration of sedation, adequate oxygenation and ventilation was assured by adjusting mechanical ventilator to 1.0 jennifer of oxygen and matching the patients minute ventilation. The bronchoscope was advanced through the trach into the trachea. Findings: Copious thick secretions seen throughout RUL, RML, RLL. Minimal secretions on left. Therapeutic suctioning performed Sample sent for culture Complications: None; patient tolerated the procedure well. Condition: stable. Attending Attestation: This procedure was performed independently of the time included in today's admission/progress note(s). This procedure was performed under the direct supervision of Dr. Sorto, who was present for the entire procedure. Dionne Pyle DO Pulmonary / Critical Care Fellow Division of Pulmonary, Critical Care, & Sleep Medicine [facility] Pager [phone] 09/08/22 3:37 AM Associated attestation - Nurys Sorto MD - 09/08/2022 6:48 AM CDT I was present during the entire procedure documented in this encounter Consult Notes * Gaurav Juarez MSW - 09/28/2022 3:11 PM CDTAssociated Order(s): IP CONSULT TO TRACK SERVICE PERSON SW spoke with the pt's sister and she is requesting to speak with the physician. SW informed the attending. SW aware the pt's sister DID NOT go visit [facility] today. SW to continue to follow for SNF placement. CLARITA Fang 09/28/2022 * Iggy Rodriguez - 09/01/2022 1:10 PM CDTAssociated Order(s): IP CONSULT TO TRACK SERVICE PERSON Facility Admission Note Admitted From: [facility] Level of Care (Skilled, Residential, Assisted, Retirement, Fci): Retirement Primary Payor at Facility: Medicaid Can patient Return: Yes Facility Contact: admissions Physician Following at Facility: Does Patient/Family want them to Return?: Yes Family/Support Name/Contact: sister Forrest / [phone] Number of Skilled Days Used (if applicable): n/a Prior Level of Functioning: Facility staff provides care Disposition/Anticipated Level of Care at Discharge: return to LTC Anticipated mode of transport: ambulance Comments: SW faxed clinical updates to [facility] and will follow. CLARITA Turcios / [phone] * Melany Tran RD/NOLAN - 08/30/2022 1:44 PM CDTAssociated Order(s): IP CONSULT TO NUTRITIONAL SERV Initial Nutrition Assessment Brief Synopsis: Patient is at Nutrition Risk; Specific criteria can be found in assessment below Nutrition Plan: NPO Alter TF to below: TF considerations: Start at 20ml/h and increase by 10ml/h q4h until goal Jevity 1.5 at 60 ml/hr. Provides 2160 kcal, 92 g protein, 311 g carbohydrate, 1094 ml free water. +50 ml q 6 hrs free water flush or per MD if on IVF +100 ml q4 hrs free water flush or per MD if not on additional fluids Recommendations to Physician: Adjusted TF to above Comments: Pt consulted for TF and TF at home. Pt has been started on Vital AF 1.2 @50ml/hr, recommend above regimen as patient remains off the ventilator. Pt needs NFPE at follow up, noted weight loss since previous admission. RD observed moderate temporal wasting, other providers in room during RDvisit. Pt nonverbal at baseline and came from [place]. RD to follow. BM DEBIT AGENT. 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 Height: 182.9 cm (6') Weight: 62 kg (136 lb 9.6 oz) BMI: Body mass index is 18.53 kg/m??. BMI Range: Normal IBW/lb (Calculated) Male: 178 , Recent Weights/Methods 07/16/2022 0400 07/17/2022 0400 07/18/2022 0347 07/19/2022 0400 07/20/2022 0400 08/20/2022 1346 08/28/2022 1101 08/29/2022 0529 Weight: 66.5 kg (146 lb 9.7 oz) 67 kg (147 lb 11.3 oz) 65 kg (143 lb 4.8 oz) 65.5 kg (144 lb 6.4 oz) 66 kg (145 lb 8.1 oz) 63.5 kg (140 lb) 63.5 kg (140 lb) 62 kg (136 lb 9.6 oz) Weight Method (Utilize Scales): Bedscale Bedscale Bedscale Bedscale Bedscale Estimated -- Bedscale Wt Comments: reviewed, weight loss of -4# in last week, or -10# in two months Diet order accuracy Current diet order: NPO Current tube feeding order: VAF @ 50ml/hr Nutrition recommendation: alter/change nutrition order P.O.Intake for the past 48 hrs: No data recorded Food Allergies: No known food allergies GI Concerns: None Chewing/Swallowing: Dysphagia Pain affecting intake: No Estimated Needs: KCAL: [id number] (30-35kcal/kg of ABW) Protein (g): 93-109 (20% of estimated needs) Fluid (ml): 1 ml/kcal Needs based on: Kcal/kg- (Comment) Recommended Access Route: TF Laboratory values: Recent Labs Component Name 08/30/22 0039 08/28/22 2224 08/28/22 1251 07/01/22 1634 06/30/22 1039 BUN 12 11 12 - 7 CREATININE 0.45* 0.50* 0.51* - 0.58* NA 141 142 139 - 140 POTASSIUM 3.6 3.9 4.5 - 4.0 CL 111* 111* 103 - 107 CO2 24 24 27 - 24 GLUCOSE 107 86 100 - 115 CALCIUM 9.4 8.8 9.8 - 9.5 PROT - 6.0 7.5 - 6.2 ALB - 2.0* 2.5* - 2.2* TBILI - 0.6 0.5 - 0.3 ALKPHOS - 67 88 - 65 ALT - 5 6 - 5 AST - 13 14 - 13 ANIONGAP 10 11 14 - 13 BCR 27* 22 24* - 12 OSMOLALITY 292 293 288 - 289 AGRATIO - 0.5* 0.5* - 0.6* EGFR >90 >90 >90 - >90 - = values in this interval not displayed. Medications: Current Facility-Administered Medications Medication ??? 0.9% NaCl injection 3 mL And ??? 0.9% NaCl injection 1-10 mL ??? cefepime (Maxipime) 2,000 mg in 0.9% NaCl IV 50 mL IVPB ??? cloBAZam (Onfi) tablet 20 mg ??? dextrose 10 % IV bolus Or ??? dextrose 10 % IV bolus ??? divalproex sprinkle (Depakote Sprinkle) capsule 500 mg ??? enoxaparin (Lovenox) injection 40 mg ??? glucagon (Glucagen) injection 1 mg ??? glucose (Diabetic Use) (Dex4 Glucose) oral liquid ??? glucose (Diabetic Use) oral gel ??? glucose chew tablet 4 tablet ??? lacosamide (Vimpat) tablet 200 mg ??? levalbuterol (Xopenex) nebulizer solution 1.25 mg ??? levETIRAcetam (Keppra) tablet 2,000 mg ??? polyethylene glycol 3350 (Miralax) packet 17 g ??? potassium chloride (Klor-Con) packet 40 mEq ??? senna-docusate (Senokot-S) tablet 1 tablet ??? sodium chloride (Inhalant) 7 % nebulizer solution 4 mL ??? vancomycin (Vancocin) 750 mg in 0.9% NaCl IV 250 mL IVPB Skin/Wound: WDL Nutrition Care Process (1) Nutrition Diagnostic Statement: Inadequate protein-energy intake related to:: decreased ability to consume or tolerate adequate food and/or fluids due to illness;swallowing difficulty as evidenced by:: estimated intake insufficient to meet requirements;BMI less than 19;unintentionalweight loss Nutrition Diagnostic Statement Progress: New diagnostic statement established Nutrition Intervention: Enteral nutrition: Monitoring: GI, TF, WT, labs, medications Evaluation: Nutrition Goal: Total intake will meet estimated nutrient needs Nutrition Goal Timeframe: Throughout stay Nutrition Goal Progress: New goal established Ascom [id number] * Bhavesh Phillips MD - 08/30/2022 1:17 PM CDTAssociated Order(s): IP CONSULT TO INFECTIOUS DISEASES [facility] Infectious Diseases Consultation Patient Name: Bi Tabor 1960 Room: [facility] Date of Admission: 08/28/2022 Date of Service: 08/30/2022 Primary Care Physician: Joyce Luevano APRN-BELINDA Attending Physician: Artemio Abarca MD Reason for Infectious Disease Consultation Staph Capitis Bacteremia History of Present Illness HPI: Bi Tabor is a 62 year old black male with PMH of CVA with left sided deficits, HTN, seizure disorder, demenia, dysphagia with recurrent aspiration episodes s/p PEG tube placement 02/2022, PVD with left AKA 02/2022, tracheostomy placement 06/2022. Sandra initially presented to [facility] 08/28 due to worsening respiratory secretions and incresed work of breathing at his SNF. SNF apparently did nothave capability to suction patent's trach site, so he was subsequently BIBEMS to ED for further evaluation and management. On presentation, aptient had tachypena to 27 RPM, HR elevated at 121, patient satting well on 10L oxygen through trach. CXR was performed which showed large right pleural effusion with collapse of right lung. Blood cultures collected which were positive for Staph capitis 2.Sputum culture was collected as well which was positive for Pseudomonas and MRSA. Patient was started on vancomycin and cefepime for possible hospital acquired pneumonia and was admitted to MICU. At present, patient is saturating adequately with 8L humidified air, he had one recorded fever overnight to 100.5 which defervesced on follow up vitals. He notes some discomfort around his PEG tube site today but no diarrhea reported, denies fevers/chills, denies dyspnea at present, he is producingsputum but unable to tell me if it is more or less than normal. Medical History Past Medical History: Diagnosis Date [...] Left; LEFT BKA POSS AKA Social History (Limited due to patinet being nonverbal) Smokin pack year smoking history Alcohol: denies history Illicit drugs/IV drug use: Denies history Living situation: At [facility] Travel Hx: no international travel Sick contacts:denies recent contacts TB exposure: Unsure Prosthetic / Implant History: Peg tube placed 02/2022, Trach placed 06/2022 Immunizations: Immunization History Administered Date(s) Administered ??? Covid [employer] primary monovalent 12+ yr 0.3mL Purple cap [...] history. Review of Systems Review of Systems Constitutional: Positive for fever. Negative for chills, malaise/fatigue and weight loss. HENT: Negative for congestion, nosebleeds, sinus pain and sore throat. Respiratory: Positive for cough, sputum production and shortness of breath. Negative for hemoptysisand wheezing. Cardiovascular: Negative for palpitations, orthopnea, claudication and leg swelling. Gastrointestinal: Positive for abdominal pain. Negative for blood in stool, diarrhea, melena, nausea and vomiting. Genitourinary: Negative for dysuria and flank pain. Musculoskeletal: Negative for back pain, joint pain and myalgias. Allergies Allergies Allergen Reactions ??? Clonazepam Psychiatric hallucinations Antimicrobial History Current Antibiotics Vancomycin (08/28-present) Cefepime (08/28-present) Home Medications Prior to Admission medications Medication Sig Start Date End Date Taking? Authorizing Provider acetaminophen (Tylenol) 500 MG tablet 1 (one) tablet by Enteral Tube route every 6 hours as needed Maximum allowable Acetaminophen amount = 4 Grams (4000 mg) / 24 hours. 06/15/22 Kiko Barros, artificial tears ophthalmic solution Instill 1 (one) drop into both eyes 3 times daily as needed 03/31/22 Dante Nuno MD atorvastatin (Lipitor) 40 MG tablet 1 (one) tablet by Enteral Tube route once daily 04/01/22 Dnate Nuno MD carboxymethylcellulose sodium (Refresh;Celluvisc) 1 % ophthalmic solution 1 (one) drop by Ophthalmic route once daily as needed Filemon Hernandez MD cloBAZam (Onfi) 20 MG tablet 1 (one) tablet by Enteral Tube route 2 times daily 05/14/22 Karime Echavarria MD docusate sodium (Colace) 150 MG/15ML solution Take 15 mL by mouth as needed 04/07/22 Filemon Hernandez MD fluticasone propionate (Flonase) 50 MCG/ACT nasal spray [place] 1 (one) spray into each nostril as needed 06/08/22 Filemon Hernandez MD folic acid (Folvite) 1 MG tablet 1 (one) tablet by Enteral Tube route once daily 04/01/22 Dante Nuno MD lacosamide (Vimpat) 200 MG tablet 1 (one) tablet by Enteral Tube route 2 times daily 05/14/22 Karime Echavarria MD levETIRAcetam (Keppra) 1000 MG tablet 2 (two) tablets by Enteral Tube route 2 times daily 05/14/22 Karime Echavarria MD loratadine (Claritin) 10 MG tablet Take 1 (one) tablet by mouth once daily 06/07/22 ProviderFilemon MD midazolam (Nayzilam) 5 MG/0.1ML nasal spray [place] 0.1 mL into the nose as needed for Seizures 06/21/22 Yana Rm, [employer] oxybutynin (Ditropan) 5 MG tablet 1 (one) tablet by Enteral Tube route 2 times daily 07/21/22 Raisa Vee MD tamsulosin (Flomax) 0.4 MG capsule Take 1 (one) capsule by mouth once daily At the same time every day after a meal. Please make sure it is via enteral tube. 06/15/22 Kiko Barros, thiamine (Vitamin B-1) 100 MG tablet 1 (one) tablet by Enteral Tube route once daily 04/01/22 Dante Nuno MD Inpatient Medications ??? 0.9% NaCl 3 mL Intracatheter q8h ??? cefepime 2 g Intravenous q8h ??? cloBAZam 20 mg Enteral Tube BID ??? divalproex sprinkle 500 mg Enteral Tube q6h ??? enoxaparin 40 mg Subcutaneous QDAY ??? lacosamide 200 mg Enteral Tube BID ??? levalbuterol 1.25 mg Inhalation q6h ??? levETIRAcetam 2,000 mg Enteral Tube BID ??? polyethylene glycol 3350 17 g Enteral Tube QDAY ??? senna-docusate 1 tablet Enteral Tube QDAY ??? sodium chloride (Inhalant) 4 mL Inhalation BID ??? vancomycin 750 mg Intravenous q8h Objective Vitals BP 132/71 Pulse 98 Temp 98.9 ??F (37.2 ??C) (Oral) Resp 16 Ht 1.829 m (6') Wt 62 kg (136 lb 9.6 oz) SpO2 99% Temp (24hrs), Av.3 ??F (37.4 ??C), Min:97.9 ??F (36.6 ??C), Max:100.5 ??F (38.1 ??C) Physical Exam Constitutional: Alert and cooperative, NAD, tracheostomy in place, pateint nonverbal Head, Ears, Nose: Normocephalic, atraumatic. External ears, nose normal Eyes: Conjunctivae/corneas clear. No scleral icterus. Neck: Tracheostomy without erythema at site, expectorating white/yellow phlegm Oral: Dentition fair, no thrush Cardiovascular: S1, S2 normal. No murmurs, rubs, or gallops. Respiratory: Good air entry, clear to auscultation bilaterally without rales, rhonchi, or wheezes. GI: Soft, non-tender; bowel sounds normal. PEG tube without erythema or purulent drainage Musculoskeletal: Extremities normal, atraumatic, no cyanosis or edema Skin: No rashes Hem/Lymphatic: No palpable cervical or supraclavicular nodes Psych: Normal mood and affect. Neurologic: Awake, alert, oriented. Lines: PIV x3 in left arm. 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 estimated creatinine clearance is 151.2 mL/min (A) (by C-G formula based on SCr of 0.45 mg/dL (L)). LFTs: Recent Labs Component Name 08/28/22 2224 08/28/22 1251 06/30/22 1039 06/27/22 2215 ALKPHOS 67 88 65 95 ALT 5 6 5 6 AST 13 14 13 19 LIPASE - - - 18 Coagulation: Recent Labs Component Name 08/28/22 2224 06/27/22 2215 05/11/22 1309 PT 15.2* 12.8 13.5 INR 1.2 1.0 1.0 Microbiology, Imaging and other diagnostic tests MICROBIOLOGY: Blood culture: 08/28/2022: Positive for Staph capitis 07/0108/30/2022: NGTD Urine culture: 08/29/2022: Currently pending Sputum Culture: 08/29/2022: Positive for Pseudomonas aeroginosa, MRSA HISTOPATHOLOGY: None at this admission IMAGING & PROCEDURES: I have independently reviewed all pertinent images. Reports in chart. Assessment and Recommendations #Staph capitis bacteremia - Patient presenting with increased dyspnea and sputum production from trach, since admission has had sporadic low grade fevers - Blood cultures collected on admission positive 2/2 for Staph capitis. Normally skin/oral domenico, could possibly be contaminant. - Has no purulent drainage or erythema from PEG tube site concerning for infection at this site - Given gram positive bacteremia would get TTE for further evaluation for possible vegetation - Currently has adequate coverage with vancomycin. Will follow up on subsequent blood cultures to determine if possible contaminant #Hospital Acquired Pneumonia vs tracheitis - Paitnet presenting with increased tachypncea, subjective dyspnea. CXR on arrival noted to have large pleural effusion in right lobe. Unclear if this may be parapneumonic, signfiicantly larger than on previous imaging in June. - Still making more frequent secretions but oxygen saturations adequate on humidified air. - Sputum cultures positive for heavy Pseudomonas and MRSA. Currently receiving vancomycin and cefepime - Would consider getting possible thoracentesis if able in order to determine whether pleural effusion is infectious etiology in order to help determine antibiotic duration #Possible Urinary Tract Infection - Patient with UA concerning for urinary tract infection. No complaints of dysuria at this time from patient but per nursing urine seemed cloudy - Urine cultures collected, will follow potential speciation Renal Function: estimated creatinine clearance is 151.2 mL/min (A) (by C-G formula based on SCr of 0.45 mg/dL (L)). Allergies: Allergies Allergen Reactions ??? Clonazepam Psychiatric hallucinations Plan/Recommendations - Agree with TTE for further evaluation for possible valvular vegetations - Continue vancomycin and cefepime at this time - If possible, would consider getting sample of pleural fluid to determine if possible infectious etiology and to help drive antibiotic coverage/duration - Will follow susceptibilities of sputum culture, will continue to monitor positive blood culture speciation and whether subsequent blood cultures return positive - Will follow pending urine cultures -As part of routine screening, please obtain HIV 4th generation screen and HCV antibody with reflexto HCV RNA quantitative (universally recommended per CDC guidelines, pt agreeable to screening at this time) Check CBC with auto diff and CMP at least weekly while on IV antibiotics Thank you for allowing us to participate in the care of this patient. We will continue to follow and monitor with you closely. Patient seen, examined, and case/plan were discussed with my attending physician, Dr. Valdez. Case was discussed with primary, MICU 3 team. I spent over 40 min in the care of this patient, and over 50% of that time was spent in counseling and coordination of care. Bhavesh Phillips MD PGY-2, Internal Medicine Infectious Disease (Team 1) [facility] Pager: [phone] ID Clinic Associated attestation - Mira Valdez MD - 08/31/2022 8:25 AM CDT Pt was seen by me with a resident. Agree with plans and findings. documented in this encounter ED Notes * Shannon Hays Graduate Nurse - 08/28/2022 5:48 PM CDT Report given to maged. * Moriah Saleem MD - 08/28/2022 3:41 PM CDT ASSUMED CARE NOTE Patient signed out to me by Dr. Clarke at 3:01 PM. Briefly, Bi Tabor is a 62 year old male is being evaluated for SOB and trach problem. Pmhx of CVA, trach/ peg dependent, HTN, seizure. Pt presented from [place] for decreased breath sounds. Per previous team it appears trach had not been properly suctioned. Tachycardic and tachypneic on exam. Sepsisprotocol initiated at 12:14 per previous team. At this time the patient's condition is Stable. Thus far, studies reveal CXR shows lower lobe infiltrate per previous team's read Pending formal CXR read results. Plan is reassess once CXR read results, call and admit to medicine. ED COURSE: 3:48 PM- After discussion with medicine, the patient will be admitted to their service for further management of care. 4:55 PM- Pt upgraded to the MICU at this time. Clinical Impression: 1. SOB (shortness of breath) 2. Tachypnea Disposition: Admit to MICU By signing my name below, I, Viri Mariano, attest that this documentation has been prepared under the direction and in the presence of Dr. Saleem. Signed: Laisha Xiao. I, Dr. Saleem, personally performed the services described in this documentation. All medical recordentries made by the scribe were at my direction and in my presence. I have reviewed the chart and agree that the record reflects my personal performance and is accurate and complete. * Leonardo Clarke MD - 08/28/2022 11:09 AM CDT ED ATTENDING NOTE Interval History: Bi Tabor is a 62 year old male with a past medical history that includes CVA (with residual L-sided and HTN who is presenting to the ED for evaluation of shortness of breath. Patient is BIBEMS from [facility] for evaluation after patient's trach was unable to be properly suctioned. RN reports that thepatient was found in his room this morning, when he was tachypneic with increased work of breathing. Suction instruments were unable to be located at the [facility], and patient was brought here. Patient isotherwise nonverbal and unable to provide information. Past Medical History: Diagnosis Date ??? CVA [...] Determinants of Health Financial Resource Strain: Unknown ??? Difficulty of Paying Living Expenses: Patient refused Food Insecurity: No Food Insecurity ??? Worried About Running Out of Food in the Last Year: Never true ??? Ran Out of Food in the Last Year: Never true Transportation Needs: No Transportation Needs ??? Lack of Transportation (Medical): No ??? Lack of Transportation (Non-Medical): No Stress: No Stress Concern Present ??? Feeling of Stress : Not at all Housing Stability: Low Risk ??? Unable to Pay for Housing in the Last Year: No ??? Number of Places Lived in the Last Year: 1 ??? Unstable Housing in the Last Year: No Review of Systems Unable to perform ROS: Patient nonverbal Vitals: 08/28/22 1400 08/28/22 1415 08/28/22 1430 08/28/22 1445 BP: 100/67 93/63 118/75 122/79 Pulse: (!) 121 (!) 120 (!) 114 (!) 112 Resp: 29 26 Temp: SpO2: 96% 97% 96% 97% Weight: Height: Physical Exam Constitutional: General: He is not in acute distress. Appearance: He is ill-appearing. He is not diaphoretic. HENT: Head: Normocephalic and atraumatic. Nose: Nose normal. Mouth/Throat: Mouth: Mucous membranes are moist. Eyes: Extraocular Movements: Extraocular movements intact. Conjunctiva/sclera: Conjunctivae normal. Pupils: Pupils are equal, round, and reactive to light. Neck: Comments: Trach collar in place Cardiovascular: Rate and Rhythm: Normal rate and regular rhythm. Pulmonary: Effort: Pulmonary effort is normal. No respiratory distress. Breath sounds: Normal breath sounds. Abdominal: General: Abdomen is flat. There is no distension. Palpations: Abdomen is soft. Tenderness: There is no abdominal tenderness. Comments: PEG tube in place Musculoskeletal: General: No swelling, tenderness or signs of injury. Cervical back: No tenderness. Skin: General: Skin is warm and dry. Comments: No visible sores to BLE Neurological: Mental Status: He is alert. Comments: Nonverbal Medical Decision Making: Dx: Unable to suction tracheostomy at [facility] DDx: COVID vs other viral illness vs UTI vs metabolic abnormality vs other Plan: Labs, COVID swab, lactic acid, reassess Results: Labs Reviewed CBC W AUTO DIFFERENTIAL - Abnormal; Notable for the following components: Result Value WBC 15.4 (*) RBC 3.68 (*) Hemoglobin 11.8 (*) MCV 100.5 (*) RDW-SD 61.5 (*) RDW-CV 16.6 (*) Platelet Count 143 (*) Immature Platelet Fraction 10.3 (*) Neutrophils % 72.7 (*) Lymphocytes % 15.1 (*) Neutrophils Absolute 11.17 (*) Monocytes Absolute 1.76 (*) All other components within normal limits COMPREHENSIVE METABOLIC PANEL - Abnormal; Notable for the following components: Creatinine 0.51 (*) Albumin 2.5 (*) BUN/Creatinine Ratio 24 (*) Albumin/Globulin Ratio 0.5 (*) All other components within normal limits SARS-COV-2 (COVID-19)+INFLU A+B PCR RAPID - Normal Narrative: Influenza assay performed by Nucleic Acid [...] acid amplification assay performance was validated by [facility]. This test has been authorized [...] this EUA assay are available upon request. LACTIC ACID BLOOD REFLEX TO REPEAT - Normal TROPONIN-I HIGH SENSITIVE BASELINE + 1HR - Normal PROCALCITONIN LEVEL - Normal Narrative: The change in procalcitonin (PCT) concentration over time provides support in decision making on antibiotic discontinuation for suspected or confirmed septic patients. Follow-up samples should be tested once every 1-2 days based upon physician discretion taking into account the patient???s evolution and progress. Consider discontinuation of antibiotic therapy if the PCT current is <= 0.5 ng/mL or if the delta PCT is > 80%. Duration of antibiotics should not be determined solely on PCT; established guidelines for the indication should be followed. ?? PCT peak: Highest observed PCT concentration ?? PCT current: Most recent PCT concentration ?? Calculate delta PCT using the following equation: Delta PCT = PCT Peak - PCT current X 100% PCT Peak The Change in Procalcitonin Calculator is available at [email or web address] If clinical picture has not improved and PCT remains high, reevaluate and consider treatment failure or other causes. CULTURE BLOOD CULTURE BLOOD MRSA DNA PCR URINALYSIS REFLEX TO MICROSCOPIC NO CULTURE TROPONIN-I HIGH SENSITIVE REFLEX 1HOUR CREATININE BLOOD - POCT (IP) SL XR CHEST 1VW PORTABLE (Results Pending) ED course: The patient's Oxygen Saturation Monitor was interpreted by me. The reading was 100%. The patient was on trach collar at the time of the reading. This is interpreted as normal for patient. 12:14 PM: 3:04 PM - High suspicion for SEPSIS, will initiate protocol. 1:49 PM: Labs reviewed by me- WBC elevated to 15.4K, COVID negative. 2:47 PM: I have reassessed the patient's hemodynamic status. 3:00 PM: Patient has been signed out to Dr. Saleem. Pending CXR results. Consult No Procedure done at this time No Ultrasound done at this time No CRITICAL CARE IN THE ED No Orders and Medicine administered during this encounter: Orders Placed This Encounter ??? SARS-COV-2 (COVID-19)+INFLU A+B PCR RAPID ??? CULTURE BLOOD ??? MRSA DNA PCR ??? XR CHEST 1VW PORTABLE ??? CBC W AUTO DIFFERENTIAL ??? COMPREHENSIVE METABOLIC PANEL ??? LACTIC ACID BLOOD REFLEX TO REPEAT ??? TROPONIN-I HIGH SENSITIVE BASELINE + 1HR ??? URINALYSIS REFLEX TO MICROSCOPIC NO CULTURE ??? PROCALCITONIN LEVEL ??? TROPONIN-I HIGH SENSITIVE REFLEX 1HOUR ??? VANCOMYCIN LEVEL TROUGH ??? CREATININE BLOOD - POCT (IP) [facility] ??? EKG 12-LEAD ??? AND Linked Order Group ??? 0.9% NaCl injection 3 mL ??? 0.9% NaCl injection 1-10 mL ??? cefepime (Maxipime) 2,000 mg in 0.9% NaCl IV 50 mL IVPB ??? cefepime (Maxipime) 2,000 mg in 0.9% NaCl IV 50 mL IVPB ??? DISCONTD: vancomycin (Vancocin) 1,500 mg in 500 mL NaCl IVPB Premix ??? FOLLOWED BY Linked Order Group ??? 0.9% NaCl IV bolus ??? 0.9% NaCl infusion ??? vancomycin (Vancocin) IV dose per pharmacy ??? vancomycin (Vancocin) 1,500 mg in 500 mL NaCl IVPB Premix ??? DISCONTD: vancomycin (Vancocin) 1,000 mg in 0.9% NaCl IV 250 mL IVPB ??? DISCONTD: acetaminophen (Tylenol) suppository 650 mg ??? acetaminophen (Tylenol) solution 650 mg ??? vancomycin (Vancocin) 1,250 mg in 250 mL NaCl IVPB Premix Medications 0.9% NaCl injection 3 mL (3 mL Intracatheter $ Given 08/28/22 1326) And 0.9% NaCl injection 1-10 mL (has no administration in time range) cefepime (Maxipime) 2,000 mg in 0.9% NaCl IV 50 mL IVPB (has no administration in time range) cefepime (Maxipime) 2,000 mg in 0.9% NaCl IV 50 mL IVPB (has no administration in time range) 0.9% NaCl IV bolus (0 mL Intravenous Stopped 08/28/22 1324) Followed by 0.9% NaCl infusion ( Intravenous $ New Bag/Syringe 08/28/22 1325) vancomycin (Vancocin) IV dose per pharmacy (has no administration in time range) acetaminophen (Tylenol) solution 650 mg (has no administration in time range) vancomycin (Vancocin) 1,250 mg in 250 mL NaCl IVPB Premix (has no administration in time range) vancomycin (Vancocin) 1,500 mg in 500 mL NaCl IVPB Premix (1,500 mg Intravenous $ New Bag/Syringe 08/28/22 1331) Clinical Impression: 1. SOB (shortness of breath) 2. Tachypnea Disposition: Pending- WILSON to Dr. Saleem By signing my name below, I, Pia Xie, attest that this documentation has been prepared under the direction and in the presence of Dr. Clarke. Signed: Laisha Tejada. I, Dr. Clarke, personally performed the services described in this documentation. All medical record entries made by the scribe were at my direction and in my presence. I have reviewed the chart and agree that the record reflects my personal performance and is accurate and complete. * Clover Villegas RN - 08/28/2022 10:59 AM CDT BIBEMS from [facility] for diminished lung sounds per NH on R side with hx of atelectasis and CVA with trach present. Pt arrives maintaining saturation on 2L non-humidified O2. Pt arrives with several skin lesions that have been documented in [facility] * Wood Roa RN - 08/28/2022 10:57 AM CDT Bed: AC30 Expected date: Expected time: Means of arrival: Comments: 4C bing patient documented in this encounter Miscellaneous Notes * Clinical References AVS - Ck Mccurdy MD - 10/22/2022 8:12 AM CDT Images from the original note were not included. [id number] What Is Pneumonia? Pneumonia is a serious lung infection. It can affect 1 or both lungs. Many cases of pneumonia are caused by bacteria or viruses. Fungi may also cause pneumonia, but this is less common. You may get pneumonia after an illness, such as a cold, flu, or bronchitis. Those most at risk for pneumonia include babies, children, older adults, smokers, and people with long-term (chronic) health problems or weak immune systems. Healthy lungs ?? Air travels in and out of the lungs through tubes called airways. ?? The tubes branch into smaller passages called bronchioles. These end in tiny sacs called alveoli. ?? Blood vessels surrounding the alveoli take oxygen into the bloodstream. At the same time, the alveoli remove carbon dioxide (a waste gas) from the blood. The carbon dioxide is then exhaled. When you have pneumonia ?? Pneumonia causes the bronchioles and the alveoli to fill with excess mucus or pus and become inflamed. ?? Your body?s response may be to cough. This can help clear out the fluid. ?? The fluid (mucus) you cough up may look green or dark yellow. ?? The excess mucus may make you feel short of breath. ?? The inflammation and infection may give you a fever. What are the symptoms? Symptoms of pneumonia can come without warning. At first, you may think you have a cold or flu. Butsymptoms may get worse quickly, turning into pneumonia. Symptoms can be different for bacterial andviral pneumonia. They may be mild or severe. Common symptoms may include: ?? Severe cough with green or yellow mucus that doesn't get better, or gets worse ?? Fever and chills ?? Upset stomach (nausea), vomiting or diarrhea ?? Loss of appetite ?? Shortness of breath with normal daily activities ?? Increased heart rate ?? Chest pain or discomfort when breathing in or coughing ?? Headache ?? A lot of sweating and clammy skin ?? Severe tiredness (fatigue) Last Reviewed Date: 2021 ?? [id number] [employer]. All rights reserved. This information is not intended as a substitute for professional medical care. Always follow your healthcare professional's instructions. * Coding Query - Venessa Rosado, DO - 10/13/2022 5:35 PM CDT DOCUMENTATION CLARIFICATION REQUEST TO: Dr. Rosado FROM: Vashti Vega RN, CDS Email: [email or web address] Use the F2 function alanis to complete the query. Click on ???Sign?? to file the note. Patient Name: Bi Tabor Please review the clinical information below and clarify the severity of malnutrition as documentedon Internal Medicine progress notes. Choices may include but are not limited to: ??? Severe protein calorie malnutrition ??? Moderate protein calorie malnutrition ??? Mild protein calorie malnutrition ??? Unable to determine ??? Other, please specify The medical record reflects the following: o Risk Factors: Dysphagia with recurrent dysphagia requiring NPO, s/p PEG tube placement o Clinical Findings: Nutrition re-assessment: Malnutrition in the context of: chronic disease, Malnutrition Severity: Severe. Body mass index is 16.41 kg/m??. Nutrition Focused Physical Assessment: Loss of Subcutaneous Fat: Orbital: Severe. Buccal: Severe. Tricep: Severe. Muscle Loss: Temples (Temporalis Muscle): Severe. Clavicles (Pectoralis & Deltoids): Severe. Shoulders (Deltoids): Severe o Treatment: Nutrition consult. Enteral nutrition. PROVIDER RESPONSE (Use F2 to respond) ??? Severe protein calorie malnutrition THIS DOCUMENT IS MAINTAINED A PERMANENT PART OF THE MEDICAL RECORD. * Significant Event - Artur Mcgraw MD - 10/09/2022 2:02 PM CDT RN notified patient is tachypnea and tachycardic. At bedside patient denies chest pain but looks visibly tachypnea. CXR with signs of possible aspiration on right side. Reviewed with radiologist. Rapid called and aggressive suctioning with large amount of thick copious secretions. ABG with pO61 pH 7.42. pCO 41. No signs of CO2 retention. A/P Respiratory distress was caused most likely by mucus plugging. Low suspicion for PE currently givenhigher likelihood of above diagnosis. Appreciate RT assistance in switching to HiFlow trach adapter to facilitate mucus thinning. The patient was not hypoxic during this event. Mucomyst q 6hours, saline nebs i7ixtxt and xopenex q 6 hours scheduled. Artur Mcgraw MD Hospitalist Nursing staff updated with changes to care plan. I spent 30 minutes in full attendance with this critically-ill patient. Critical care was necessaryto treat or prevent life-threatening deterioration of the following: aggressive deep suctioning. * Code/Rapid Response Event - Randall Cedillo RN - 10/09/2022 12:01 PM CDT RAPID RESPONSE EVENT NOTE [id number] [place] [address] Patient: Bi Tabor Location: 7704/1 : 1960 Reason for Admission: No admission diagnoses are documented for this encounter. Provider Teams Team Comment Primary Team Specialty Team Pager 1st Contact 1st Contact Number RODO CLARK 1 Yes Internal Medicine -- Event Date/Time: 10/09/2022 1147 Summary of Events: 1147 - The Rapid Response Team (GOLDSMITH APPRENTICE) was paged for desaturation and tachycardia.1155 - Patient drowsy, opens eyes spontaneously. Respirations tachypniec, breath sounds coarse bilaterally on 35% fio2 per high humidity trach collar 1200 - patient placed on high flow trach adaptor with settings of 50% fio2 and 50 l/m 1204 - labs and abg drawn 1210 - patient deep suctioned with large copious amount of thick greenish white secretions. 1220 - respiratory status improving with decreased work of breathing, oxygen saturation 98-100% 1227 - chest x-ray complete 1241 - trop complete 1300 - patient continues on high flow trach adaptor, patient tachycardia improved to mid 110s- 120s, no further orders received at this time. End of rapid response. Randall Cedillo RN Vital Signs: Patient Vitals for the past 24 hrs: Temp Pulse Resp BP SpO2 O2 % (FiO2) 10/09/22 1157 97.7 ??F (36.5 ??C) (!) 133 (!) 34 126/79 92 % 35 % 10/09/22 1140 -- (!) 134 (!) 34 -- 95 % 35 % 10/09/22 0839 -- (!) 117 14 -- 95 % 21 % 10/09/22 0806 -- 94 16 140/77 97 % -- 10/09/22 0430 97.7 ??F (36.5 ??C) 105 16 117/82 96 % -- 10/08/22 1616 97.3 ??F (36.3 ??C) 74 16 132/68 95 % -- 10/08/22 1341 -- -- -- -- 98 % -- Outcome: Patient to remain in current room. Randall Cedillo RN Rapid Response Nurse * Coding Query - Cory Cali MD - 09/14/2022 4:18 PM CDT DOCUMENTATION CLARIFICATION REQUEST TO: Dr. Cali FROM: Vashti Vega RN, CDS Email: [email or web address] Use the F2 function alanis to complete the query. Click ???Sign?? to file the note. Patient Name: Bi Tabor Please review the clinical information below and clarify the right heel evolving DTI as documented on 09/14/22, wound care consult. Etiology of ulcer - Choices may include but are not limited to: ??? Pressure ulcer, stage III, present on admission ??? Pressure ulcer stage I, present on admission ??? Pressure ulcer, stage II, present on admission ??? Pressure ulcer, stage IV, present on admission ??? Pressure ulcer, unstageable, present on admission ??? Pressure ulcer, stage III, not present on admission ??? Pressure ulcer stage I, not present on admission ??? Pressure ulcer, stage II, not present on admission ??? Pressure ulcer, stage IV, not present on admission ??? Pressure ulcer, unstageable, not present on admission ??? Unable to determine ??? Other, please specify The medical record reflects the following: o Risk Factors: Dementia, Hx CVA with left sided deficit. Immobility due to chronic illness. o Clinical Findings: Wound Care consult: Upon chart review it was noted that the patient was admitted with a POA right heel evolving DTI, photographed in the ED. Today the wound has evolved and declared itself a a stage 3 pressure injury, POA 1 x 2.5 x 0.1 cm pearly pink with serosanginous drainage. o Treatment: Wound Care consult. Clean right heel with NS, dry well. Apply Mepilex AG foam, secure with kerlix, change q3 days and prn. Off load right heel at all times with heel boot. Frequent turns. PROVIDER RESPONSE (Use F2 to respond) Pressure ulcer of right heel, stage III, present on admission THIS DOCUMENT IS MAINTAINED A PERMANENT PART OF THE MEDICAL RECORD. documented in this encounter Plan of Treatment Upcoming Encounters Date Type Department Care Team (Late st Contact Info) Description 12/05/2024 1:00 PM CDT Office Visit [facility] - Neurology [address] [place] [address], [place] [address] Sean Raymundo, [address] [place] [address], [place] [address] Scheduled Orders Name Type Priority Associated Diagnoses Orde r Schedule OXYGEN WITH TITRATION PROTOCOL Respiratory Care Routine ONCE for 1 Occurrences starting 09/06/2022 until 09/06/2022 documented as of this encounter Procedures Procedure Name Priority Date/Time Associated Diagnosis Comments CARDIAC EKG ORDER 11/19/2022 2:2 3 PM CDT GLUCOSE - POINT OF CARE Routine 11/09/2022 8:32 AM CDT GLUCOSE - POINT OF CARE Routine 11/08/2022 7:52 PM CDT GLUCOSE - POINT OF CARE Routine 11/08/2022 8:00 AM CDT GLUCOSE - POINT OF CARE Routine 11/07/2022 9:58 PM CDT GLUCOSE - POINT OF CARE Routine 11/07/2022 7:17 AM CDT GLUCOSE - POINT OF CARE Routine 11/06/2022 8:32 PM CDT GLUCOSE - POINT OF CARE Routine 11/06/2022 7:52 AM CDT GLUCOSE - POINT OF CARE Routine 11/04/2022 10:46 PM CDT GLUCOSE - POINT OF CARE Routine 11/04/2022 7:42 AM CDT CBC W AUTO DIFFERENTIAL AM Draw 11/04/2022 6:33 AM CDT COMPREHENSIVE METABOLIC PANEL AM Draw 11/04/2022 6:33 AM CDT PHOSPHORUS BLOOD Routine 11/04/2022 6:33 AM CDT MAGNESIUM BLOOD Routine 11/04/2022 6:33 AM CDT GLUCOSE - POINT OF CARE Routine 11/03/2022 8:08 PM CDT GLUCOSE - POINT OF CARE Routine 11/03/2022 5:54 AM CDT GLUCOSE - POINT OF CARE Routine 11/03/2022 12:35 AM CDT GLUCOSE - POINT OF CARE Routine 11/02/2022 6:08 PM CDT GLUCOSE - POINT OF CARE Routine 11/02/2022 5:56 AM CDT GLUCOSE - POINT OF CARE Routine 11/02/2022 12:26 AM CDT GLUCOSE - POINT OF CARE Routine 11/01/2022 12:22 PM CDT GLUCOSE - POINT OF CARE Routine 11/01/2022 7:00 AM CDT CBC W AUTO DIFFERENTIAL AM Draw 11/01/2022 6:44 AM CDT BASIC METABOLIC PANEL (CALCIUM TOTAL) AM Draw 11/01/2022 6:44 AM CDT PHOSPHORUS BLOOD Routine 11/01/2022 6:44 AM CDT MAGNESIUM BLOOD Routine 11/01/2022 6:44 AM CDT GLUCOSE - POINT OF CARE Routine 11/01/2022 12:28 AM CDT GLUCOSE - POINT OF CARE Routine 10/31/2022 11:37 AM CDT GLUCOSE - POINT OF CARE Routine 10/31/2022 12:23 AM CDT GLUCOSE - POINT OF CARE Routine 10/30/2022 5:12 PM CDT GLUCOSE - POINT OF CARE Routine 10/30/2022 11:18 AM CDT VALPROIC ACID FREE+TOTAL PANEL AM Draw 10/30/2022 5:46 AM CDT CBC W AUTO DIFFERENTIAL AM Draw 10/30/2022 5:46 AM CDT BASIC METABOLIC PANEL (CALCIUM TOTAL) AM Draw 10/30/2022 5:46 AM CDT PHOSPHORUS BLOOD Routine 10/30/2022 5:46 AM CDT MAGNESIUM BLOOD Routine 10/30/2022 5:46 AM CDT GLUCOSE - POINT OF CARE Routine 10/30/2022 12:03 AM CDT GLUCOSE - POINT OF CARE Routine 10/29/2022 11:55 AM CDT GLUCOSE - POINT OF CARE Routine 10/29/2022 5:04 AM CDT GLUCOSE - POINT OF CARE Routine 10/29/2022 12:15 AM CDT GLUCOSE - POINT OF CARE Routine 10/28/2022 12:25 PM CDT CBC W AUTO DIFFERENTIAL AM Draw 10/28/2022 6:21 AM CDT BASIC METABOLIC PANEL (CALCIUM TOTAL) AM Draw 10/28/2022 6:21 AM CDT PHOSPHORUS BLOOD Routine 10/28/2022 6:21 AM CDT MAGNESIUM BLOOD Routine 10/28/2022 6:21 AM CDT GLUCOSE - POINT OF CARE Routine 10/28/2022 5:43 AM CDT GLUCOSE - POINT OF CARE Routine 10/28/2022 12:21 AM CDT GLUCOSE - POINT OF CARE Routine 10/27/2022 11:39 AM CDT GLUCOSE - POINT OF CARE Routine 10/27/2022 6:11 AM CDT GLUCOSE - POINT OF CARE Routine 10/27/2022 12:55 AM CDT GLUCOSE - POINT OF CARE Routine 10/26/2022 9:08 PM CDT GLUCOSE - POINT OF CARE Routine 10/26/2022 4:13 PM CDT CBC W AUTO DIFFERENTIAL AM Draw 10/26/2022 8:30 AM CDT BASIC METABOLIC PANEL (CALCIUM TOTAL) AM Draw 10/26/2022 8:30 AM CDT PHOSPHORUS BLOOD Routine 10/26/2022 8:30 AM CDT MAGNESIUM BLOOD Routine 10/26/2022 8:30 AM CDT GLUCOSE - POINT OF CARE Routine 10/26/2022 6:20 AM CDT GLUCOSE - POINT OF CARE Routine 10/26/2022 12:30 AM CDT GLUCOSE - POINT OF CARE Routine 10/25/2022 5:16 PM CDT GLUCOSE - POINT OF CARE Routine 10/25/2022 11:13 AM CDT GLUCOSE - POINT OF CARE Routine 10/25/2022 6:03 AM CDT GLUCOSE - POINT OF CARE Routine 10/25/2022 12:18 AM CDT GLUCOSE - POINT OF CARE Routine 10/24/2022 6:09 PM CDT GLUCOSE - POINT OF CARE Routine 10/24/2022 12:22 PM CDT CBC W AUTO DIFFERENTIAL AM Draw 10/24/2022 4:26 AM CDT BASIC METABOLIC PANEL (CALCIUM TOTAL) AM Draw 10/24/2022 4:26 AM CDT PHOSPHORUS BLOOD Routine 10/24/2022 4:26 AM CDT MAGNESIUM BLOOD Routine 10/24/2022 4:26 AM CDT GLUCOSE - POINT OF CARE Routine 10/22/2022 5:38 PM CDT GLUCOSE - POINT OF CARE Routine 10/22/2022 11:43 AM CDT GLUCOSE - POINT OF CARE Routine 10/22/2022 8:01 AM CDT GLUCOSE - POINT OF CARE Routine 10/22/2022 6:18 AM CDT CBC W AUTO DIFFERENTIAL AM Draw 10/22/2022 4:31 AM CDT BASIC METABOLIC PANEL (CALCIUM TOTAL) AM Draw 10/22/2022 4:31 AM CDT PHOSPHORUS BLOOD Routine 10/22/2022 4:31 AM CDT MAGNESIUM BLOOD Routine 10/22/2022 4:31 AM CDT GLUCOSE - POINT OF CARE Routine 10/22/2022 12:22 AM CDT SARS-COV-2 (COVID-19) RAPID RINKU 10/21/2022 5:37 PM CDT GLUCOSE - POINT OF CARE Routine 10/21/2022 5:03 AM CDT GLUCOSE - POINT OF CARE Routine 10/21/2022 1:45 AM CDT GLUCOSE - POINT OF CARE Routine 10/20/2022 6:32 PM CDT GLUCOSE - POINT OF CARE Routine 10/20/2022 2:03 PM CDT GLUCOSE - POINT OF CARE Routine 10/20/2022 6:47 AM CDT DIFFERENTIAL MANUAL AM Draw 10/20/2022 4 :31 AM CDT CBC W AUTO DIFFERENTIAL AM Draw 10/20/2022 4:31 AM CDT BASIC METABOLIC PANEL (CALCIUM TOTAL) AM Draw 10/20/2022 4:31 AM CDT PHOSPHORUS BLOOD Routine 10/20/2022 4:31 AM CDT MAGNESIUM BLOOD Routine 10/20/2022 4:31 AM CDT GLUCOSE - POINT OF CARE Routine 10/19/2022 11:15 PM CDT GLUCOSE - POINT OF CARE Routine 10/19/2022 11:41 AM CDT GLUCOSE - POINT OF CARE Routine 10/19/2022 6:12 AM CDT GLUCOSE - POINT OF CARE Routine 10/19/2022 12:38 AM CDT GLUCOSE - POINT OF CARE Routine 10/18/2022 6:19 PM CDT GLUCOSE - POINT OF CARE Routine 10/18/2022 12:10 PM CDT GLUCOSE - POINT OF CARE Routine 10/18/2022 6:13 AM CDT CBC W AUTO DIFFERENTIAL AM Draw 10/18/2022 4:34 AM CDT BASIC METABOLIC PANEL (CALCIUM TOTAL) AM Draw 10/18/2022 4:34 AM CDT PHOSPHORUS BLOOD Routine 10/18/2022 4:34 AM CDT MAGNESIUM BLOOD Routine 10/18/2022 4:34 AM CDT GLUCOSE - POINT OF CARE Routine 10/18/2022 12:19 AM CDT GLUCOSE - POINT OF CARE Routine 10/17/2022 6:16 PM CDT GLUCOSE - POINT OF CARE Routine 10/17/2022 8:00 AM CDT GLUCOSE - POINT OF CARE Routine 10/17/2022 2:44 AM CDT XR CHEST 1VW PORTABLE STAT 10/16/2022 1:51 PM CDT Aspiration into airway, sequela GLUCOSE - POINT OF CARE Routine 10/16/2022 7:39 AM CDT CBC W AUTO DIFFERENTIAL AM Draw 10/16/2022 7:29 AM CDT BASIC METABOLIC PANEL (CALCIUM TOTAL) AM Draw 10/16/2022 7:29 AM CDT PHOSPHORUS BLOOD Routine 10/16/2022 7:29 AM CDT MAGNESIUM BLOOD Routine 10/16/2022 7:29 AM CDT GLUCOSE - POINT OF CARE Routine 10/16/2022 6:14 AM CDT GLUCOSE - POINT OF CARE Routine 10/16/2022 12:16 AM CDT GLUCOSE - POINT OF CARE Routine 10/15/2022 6:11 AM CDT GLUCOSE - POINT OF CARE Routine 10/15/2022 12:06 AM CDT GLUCOSE - POINT OF CARE Routine 10/14/2022 5:25 PM CDT GLUCOSE - POINT OF CARE Routine 10/14/2022 12:25 PM CDT GLUCOSE - POINT OF CARE Routine 10/14/2022 6:32 AM CDT CBC W AUTO DIFFERENTIAL AM Draw 10/14/2022 5:53 AM CDT BASIC METABOLIC PANEL (CALCIUM TOTAL) AM Draw 10/14/2022 5:53 AM CDT PHOSPHORUS BLOOD Routine 10/14/2022 5:53 AM CDT MAGNESIUM BLOOD Routine 10/14/2022 5:53 AM CDT GLUCOSE - POINT OF CARE Routine 10/14/2022 12:19 AM CDT GLUCOSE - POINT OF CARE Routine 10/13/2022 6:15 PM CDT GLUCOSE - POINT OF CARE Routine 10/13/2022 11:28 AM CDT XR CHEST 1VW PORTABLE Routine 10/13/2022 8:22 AM CDT Fever, unspecified fever cause GLUCOSE - POINT OF CARE Routine 10/12/2022 9:49 PM CDT GLUCOSE - POINT OF CARE Routine 10/12/2022 11:45 AM CDT CBC W AUTO DIFFERENTIAL AM Draw 10/12/2022 7:16 AM CDT BASIC METABOLIC PANEL (CALCIUM TOTAL) AM Draw 10/12/2022 7:16 AM CDT PHOSPHORUS BLOOD Routine 10/12/2022 7:16 AM CDT MAGNESIUM BLOOD Routine 10/12/2022 7:16 AM CDT GLUCOSE - POINT OF CARE Routine 10/12/2022 5:42 AM CDT GLUCOSE - POINT OF CARE Routine 10/12/2022 1:16 AM CDT GLUCOSE - POINT OF CARE Routine 10/11/2022 5:16 PM CDT GLUCOSE - POINT OF CARE Routine 10/11/2022 12:08 PM CDT GLUCOSE - POINT OF CARE Routine 10/11/2022 6:02 AM CDT GLUCOSE - POINT OF CARE Routine 10/11/2022 12:12 AM CDT GLUCOSE - POINT OF CARE Routine 10/10/2022 6:28 PM CDT GLUCOSE - POINT OF CARE Routine 10/10/2022 11:51 AM CDT GLUCOSE - POINT OF CARE Routine 10/10/2022 6:21 AM CDT GLUCOSE - POINT OF CARE Routine 10/10/2022 12:41 AM CDT GLUCOSE - POINT OF CARE Routine 10/09/2022 6:44 PM CDT GLUCOSE - POINT OF CARE Routine 10/09/2022 5:05 PM CDT GLUCOSE - POINT OF CARE Routine 10/09/2022 3:02 PM CDT TROPONIN-I HIGH SENSITIVE STAT 10/09/2022 12:41 PM CDT XR CHEST 1VW PORTABLE STAT 10/09/2022 12:27 PM CDT Aspiration into airway, initial encounter CBC W/O DIFFERENTIAL STAT 10/09/2022 12:04 PM CDT Hypoxia COMPREHENSIVE METABOLIC PANEL STAT 10/09/2022 12:04 PM CDT Hypoxia LACTIC ACID BLOOD STAT 10/09/2022 12: 04 PM CDT BLOOD GASES ART + COOX PANEL STAT 10/09/2022 12:04 PM CDT EKG 12-LEAD Routine 10/09/2022 10:59 AM CDT Chronic respiratory failure with hypoxia (HCC) GLUCOSE - POINT OF CARE Routine 10/09/2022 8:05 AM CDT GLUCOSE - POINT OF CARE Routine 10/09/2022 6:30 AM CDT GLUCOSE - POINT OF CARE Routine 10/08/2022 6:02 PM CDT GLUCOSE - POINT OF CARE Routine 10/08/2022 11:45 AM CDT GLUCOSE - POINT OF CARE Routine 10/08/2022 7:43 AM CDT CBC W AUTO DIFFERENTIAL AM Draw 10/08/2022 6:24 AM CDT BASIC METABOLIC PANEL (CALCIUM TOTAL) AM Draw 10/08/2022 6:24 AM CDT PHOSPHORUS BLOOD Routine 10/08/2022 6:24 AM CDT MAGNESIUM BLOOD Routine 10/08/2022 6:24 AM CDT GLUCOSE - POINT OF CARE Routine 10/08/2022 6:02 AM CDT GLUCOSE - POINT OF CARE Routine 10/08/2022 12:15 AM CDT GLUCOSE - POINT OF CARE Routine 10/07/2022 5:29 PM CDT GLUCOSE - POINT OF CARE Routine 10/07/2022 11:58 AM CDT GLUCOSE - POINT OF CARE Routine 10/07/2022 6:22 AM CDT GLUCOSE - POINT OF CARE Routine 10/07/2022 12:17 AM CDT GLUCOSE - POINT OF CARE Routine 10/06/2022 12:00 PM CDT CBC W AUTO DIFFERENTIAL AM Draw 10/06/2022 11:58 AM CDT BASIC METABOLIC PANEL (CALCIUM TOTAL) AM Draw 10/06/2022 11:58 AM CDT PHOSPHORUS BLOOD Routine 10/06/2022 11:5 8 AM CDT MAGNESIUM BLOOD Routine 10/06/2022 11:58 AM CDT GLUCOSE - POINT OF CARE Routine 10/06/2022 6:15 AM CDT GLUCOSE - POINT OF CARE Routine 10/06/2022 12:34 AM CDT GLUCOSE - POINT OF CARE Routine 10/05/2022 5:10 PM CDT GLUCOSE - POINT OF CARE Routine 10/05/2022 12:13 PM CDT GLUCOSE - POINT OF CARE Routine 10/05/2022 5:57 AM CDT GLUCOSE - POINT OF CARE Routine 10/05/2022 12:53 AM CDT CBC W AUTO DIFFERENTIAL AM Draw 10/04/2022 8:37 AM CDT BASIC METABOLIC PANEL (CALCIUM TOTAL) AM Draw 10/04/2022 8:37 AM CDT PHOSPHORUS BLOOD Routine 10/04/2022 8:37 AM CDT MAGNESIUM BLOOD Routine 10/04/2022 8:37 AM CDT GLUCOSE - POINT OF CARE Routine 10/04/2022 6:39 AM CDT GLUCOSE - POINT OF CARE Routine 10/04/2022 12:16 AM CDT GLUCOSE - POINT OF CARE Routine 10/03/2022 6:26 PM CDT GLUCOSE - POINT OF CARE Routine 10/03/2022 1:00 PM CDT GLUCOSE - POINT OF CARE Routine 10/03/2022 12:00 PM CDT GLUCOSE - POINT OF CARE Routine 10/03/2022 8:10 AM CDT GLUCOSE - POINT OF CARE Routine 10/03/2022 6:05 AM CDT GLUCOSE - POINT OF CARE Routine 10/03/2022 12:23 AM CDT GLUCOSE - POINT OF CARE Routine 10/02/2022 6:33 PM CDT GLUCOSE - POINT OF CARE Routine 10/02/2022 2:53 PM CDT GLUCOSE - POINT OF CARE Routine 10/02/2022 11:45 AM CDT CBC W AUTO DIFFERENTIAL AM Draw 10/02/2022 10:15 AM CDT BASIC METABOLIC PANEL (CALCIUM TOTAL) AM Draw 10/02/2022 10:15 AM CDT PHOSPHORUS BLOOD Routine 10/02/2022 10:1 5 AM CDT MAGNESIUM BLOOD Routine 10/02/2022 10:15 AM CDT GLUCOSE - POINT OF CARE Routine 10/02/2022 6:24 AM CDT GLUCOSE - POINT OF CARE Routine 10/02/2022 12:25 AM CDT GLUCOSE - POINT OF CARE Routine 10/01/2022 5:38 PM CDT GLUCOSE - POINT OF CARE Routine 10/01/2022 12:00 PM CDT GLUCOSE - POINT OF CARE Routine 10/01/2022 8:04 AM CDT GLUCOSE - POINT OF CARE Routine 10/01/2022 6:01 AM CDT GLUCOSE - POINT OF CARE Routine 09/30/2022 9:44 PM CDT GLUCOSE - POINT OF CARE Routine 09/30/2022 12:08 PM CDT CBC W AUTO DIFFERENTIAL AM Draw 09/30/2022 7:08 AM CDT BASIC METABOLIC PANEL (CALCIUM TOTAL) AM Draw 09/30/2022 7:08 AM CDT PHOSPHORUS BLOOD Routine 09/30/2022 7:08 AM CDT MAGNESIUM BLOOD Routine 09/30/2022 7:08 AM CDT GLUCOSE - POINT OF CARE Routine 09/30/2022 6:28 AM CDT GLUCOSE - POINT OF CARE Routine 09/30/2022 12:28 AM CDT GLUCOSE - POINT OF CARE Routine 09/29/2022 8:37 PM CDT GLUCOSE - POINT OF CARE Routine 09/29/2022 5:02 PM CDT GLUCOSE - POINT OF CARE Routine 09/29/2022 11:00 AM CDT GLUCOSE - POINT OF CARE Routine 09/29/2022 6:19 AM CDT GLUCOSE - POINT OF CARE Routine 09/29/2022 12:19 AM CDT GLUCOSE - POINT OF CARE Routine 09/28/2022 5:45 PM CDT GLUCOSE - POINT OF CARE Routine 09/28/2022 11:50 AM CDT GLUCOSE - POINT OF CARE Routine 09/28/2022 7:42 AM CDT CBC W AUTO DIFFERENTIAL AM Draw 09/28/2022 6:51 AM CDT BASIC METABOLIC PANEL (CALCIUM TOTAL) AM Draw 09/28/2022 6:50 AM CDT PHOSPHORUS BLOOD Routine 09/28/2022 6:50 AM CDT MAGNESIUM BLOOD Routine 09/28/2022 6:50 AM CDT GLUCOSE - POINT OF CARE Routine 09/28/2022 6:03 AM CDT GLUCOSE - POINT OF CARE Routine 09/28/2022 1:53 AM CDT GLUCOSE - POINT OF CARE Routine 09/27/2022 11:21 AM CDT GLUCOSE - POINT OF CARE Routine 09/27/2022 7:01 AM CDT GLUCOSE - POINT OF CARE Routine 09/27/2022 1:02 AM CDT GLUCOSE - POINT OF CARE Routine 09/26/2022 9:12 PM CDT GLUCOSE - POINT OF CARE Routine 09/26/2022 5:18 PM CDT GLUCOSE - POINT OF CARE Routine 09/26/2022 12:08 PM CDT CBC W AUTO DIFFERENTIAL AM Draw 09/26/2022 7:18 AM CDT BASIC METABOLIC PANEL (CALCIUM TOTAL) AM Draw 09/26/2022 7:18 AM CDT PHOSPHORUS BLOOD Routine 09/26/2022 7:18 AM CDT MAGNESIUM BLOOD Routine 09/26/2022 7:18 AM CDT GLUCOSE - POINT OF CARE Routine 09/25/2022 11:29 PM CDT GLUCOSE - POINT OF CARE Routine 09/25/2022 5:22 PM CDT GLUCOSE - POINT OF CARE Routine 09/25/2022 12:39 PM CDT GLUCOSE - POINT OF CARE Routine 09/25/2022 8:10 AM CDT GLUCOSE - POINT OF CARE Routine 09/25/2022 5:35 AM CDT GLUCOSE - POINT OF CARE Routine 09/24/2022 11:39 PM CDT GLUCOSE - POINT OF CARE Routine 09/24/2022 4:11 PM CDT XR CHEST 1VW PORTABLE Routine 09/24/2022 2:19 PM CDT Tachycardia GLUCOSE - POINT OF CARE Routine 09/24/2022 11:47 AM CDT GLUCOSE - POINT OF CARE Routine 09/24/2022 8:06 AM CDT CBC W AUTO DIFFERENTIAL AM Draw 09/24/2022 7:59 AM CDT BASIC METABOLIC PANEL (CALCIUM TOTAL) AM Draw 09/24/2022 7:59 AM CDT PHOSPHORUS BLOOD Routine 09/24/2022 7:59 AM CDT MAGNESIUM BLOOD Routine 09/24/2022 7:59 AM CDT GLUCOSE - POINT OF CARE Routine 09/24/2022 5:57 AM CDT GLUCOSE - POINT OF CARE Routine 09/23/2022 11:37 PM CDT GLUCOSE - POINT OF CARE Routine 09/23/2022 5:25 PM CDT GLUCOSE - POINT OF CARE Routine 09/23/2022 12:57 PM CDT GLUCOSE - POINT OF CARE Routine 09/23/2022 5:50 AM CDT GLUCOSE - POINT OF CARE Routine 09/22/2022 11:48 PM CDT GLUCOSE - POINT OF CARE Routine 09/22/2022 5:45 PM CDT GLUCOSE - POINT OF CARE Routine 09/22/2022 11:40 AM CDT GLUCOSE - POINT OF CARE Routine 09/22/2022 7:35 AM CDT GLUCOSE - POINT OF CARE Routine 09/22/2022 5:55 AM CDT GLUCOSE - POINT OF CARE Routine 09/21/2022 11:51 PM CDT GLUCOSE - POINT OF CARE Routine 09/21/2022 4:22 PM CDT GLUCOSE - POINT OF CARE Routine 09/21/2022 12:06 PM CDT GLUCOSE - POINT OF CARE Routine 09/21/2022 8:52 AM CDT CBC W AUTO DIFFERENTIAL AM Draw 09/21/2022 6:40 AM CDT BASIC METABOLIC PANEL (CALCIUM TOTAL) AM Draw 09/21/2022 6:40 AM CDT PHOSPHORUS BLOOD Routine 09/21/2022 6:40 AM CDT MAGNESIUM BLOOD Routine 09/21/2022 6:40 AM CDT GLUCOSE - POINT OF CARE Routine 09/21/2022 6:15 AM CDT GLUCOSE - POINT OF CARE Routine 09/21/2022 1:12 AM CDT GLUCOSE - POINT OF CARE Routine 09/20/2022 9:34 PM CDT GLUCOSE - POINT OF CARE Routine 09/20/2022 7:02 PM CDT CBC W AUTO DIFFERENTIAL AM Draw 09/20/2022 6:48 AM CDT BASIC METABOLIC PANEL (CALCIUM TOTAL) AM Draw 09/20/2022 6:48 AM CDT PHOSPHORUS BLOOD Routine 09/20/2022 6:48 AM CDT MAGNESIUM BLOOD Routine 09/20/2022 6:48 AM CDT GLUCOSE - POINT OF CARE Routine 09/19/2022 8:49 PM CDT CULTURE BLOOD Timed 09/19/2022 8:16 AM CDT CBC W AUTO DIFFERENTIAL AM Draw 09/19/2022 8:16 AM CDT BASIC METABOLIC PANEL (CALCIUM TOTAL) AM Draw 09/19/2022 8:16 AM CDT PHOSPHORUS BLOOD Routine 09/19/2022 8:16 AM CDT MAGNESIUM BLOOD Routine 09/19/2022 8:16 AM CDT GLUCOSE - POINT OF CARE Routine 09/19/2022 7:55 AM CDT GLUCOSE - POINT OF CARE Routine 09/19/2022 6:25 AM CDT XR CHEST 1VW PORTABLE Routine 09/19/2022 4:30 AM CDT SOB (shortness of breath) Pulmonary infiltrate Acute on chronic respiratory failure with hypoxia (HCC) GLUCOSE - POINT OF CARE Routine 09/19/2022 12:42 AM CDT GLUCOSE - POINT OF CARE Routine 09/18/2022 4:38 PM CDT TROPONIN-I HIGH SENSITIVE STAT 09/18/2022 2:51 PM CDT CULTURE BLOOD Timed 09/18/2022 2:51 PM CDT CBC W AUTO DIFFERENTIAL Routine 09/18/2022 2:51 PM CDT CULTURE SPUTUM+GRAM STAIN Routine 09/18/2022 1:46 PM CDT EKG 12-LEAD Routine 09/18/2022 9:03 AM CDT Paroxysmal atrial tachycardia (CMS/HCC) XR CHEST 1VW PORTABLE Routine 09/18/2022 8:55 AM CDT Fever in other diseases GLUCOSE - POINT OF CARE Routine 09/18/2022 7:32 AM CDT GLUCOSE - POINT OF CARE Routine 09/18/2022 6:52 AM CDT BASIC METABOLIC PANEL (CALCIUM TOTAL) AM Draw 09/18/2022 6:29 AM CDT PHOSPHORUS BLOOD Routine 09/18/2022 6:29 AM CDT MAGNESIUM BLOOD Routine 09/18/2022 6:29 AM CDT GLUCOSE - POINT OF CARE Routine 09/17/2022 11:48 PM CDT GLUCOSE - POINT OF CARE Routine 09/17/2022 11:27 AM CDT GLUCOSE - POINT OF CARE Routine 09/17/2022 8:18 AM CDT PROCALCITONIN LEVEL AM Draw 09/17/2022 6 :59 AM CDT CBC W AUTO DIFFERENTIAL AM Draw 09/17/2022 6:59 AM CDT BASIC METABOLIC PANEL (CALCIUM TOTAL) AM Draw 09/17/2022 6:59 AM CDT PHOSPHORUS BLOOD Routine 09/17/2022 6:59 AM CDT MAGNESIUM BLOOD Routine 09/17/2022 6:59 AM CDT GLUCOSE - POINT OF CARE Routine 09/17/2022 6:58 AM CDT GLUCOSE - POINT OF CARE Routine 09/16/2022 11:40 PM CDT GLUCOSE - POINT OF CARE Routine 09/16/2022 5:43 PM CDT GLUCOSE - POINT OF CARE Routine 09/16/2022 12:04 PM CDT CBC W AUTO DIFFERENTIAL AM Draw 09/16/2022 6:28 AM CDT BASIC METABOLIC PANEL (CALCIUM TOTAL) AM Draw 09/16/2022 6:28 AM CDT PHOSPHORUS BLOOD Routine 09/16/2022 6:28 AM CDT MAGNESIUM BLOOD Routine 09/16/2022 6:28 AM CDT GLUCOSE - POINT OF CARE Routine 09/16/2022 12:06 AM CDT GLUCOSE - POINT OF CARE Routine 09/15/2022 5:44 PM CDT GLUCOSE - POINT OF CARE Routine 09/15/2022 12:13 PM CDT CBC W AUTO DIFFERENTIAL AM Draw 09/15/2022 8:08 AM CDT BASIC METABOLIC PANEL (CALCIUM TOTAL) AM Draw 09/15/2022 8:08 AM CDT PHOSPHORUS BLOOD Routine 09/15/2022 8:08 AM CDT MAGNESIUM BLOOD Routine 09/15/2022 8:08 AM CDT GLUCOSE - POINT OF CARE Routine 09/15/2022 5:32 AM CDT BLOOD GASES ART + COOX PANEL Routine 09/14/2022 12:08 PM CDT CBC W AUTO DIFFERENTIAL AM Draw 09/14/2022 12:59 AM CDT BASIC METABOLIC PANEL (CALCIUM TOTAL) AM Draw 09/14/2022 12:59 AM CDT PHOSPHORUS BLOOD Routine 09/14/2022 12:5 9 AM CDT MAGNESIUM BLOOD Routine 09/14/2022 12:59 AM CDT GLUCOSE - POINT OF CARE Routine 09/13/2022 11:05 PM CDT GLUCOSE - POINT OF CARE Routine 09/13/2022 6:54 PM CDT GLUCOSE - POINT OF CARE Routine 09/13/2022 1:47 PM CDT GLUCOSE - POINT OF CARE Routine 09/13/2022 11:21 AM CDT CBC W AUTO DIFFERENTIAL AM Draw 09/13/2022 4:43 AM CDT BASIC METABOLIC PANEL (CALCIUM TOTAL) AM Draw 09/13/2022 4:43 AM CDT PHOSPHORUS BLOOD Routine 09/13/2022 4:43 AM CDT MAGNESIUM BLOOD Routine 09/13/2022 4:43 AM CDT GLUCOSE - POINT OF CARE Routine 09/12/2022 6:32 PM CDT GLUCOSE - POINT OF CARE Routine 09/12/2022 1:13 PM CDT XR CHEST 1VW PORTABLE STAT 09/12/2022 11:14 AM CDT Pulmonary infiltrate GLUCOSE - POINT OF CARE Routine 09/12/2022 9:06 AM CDT CBC W AUTO DIFFERENTIAL AM Draw 09/12/2022 4:43 AM CDT BASIC METABOLIC PANEL (CALCIUM TOTAL) AM Draw 09/12/2022 4:43 AM CDT PHOSPHORUS BLOOD Routine 09/12/2022 4:43 AM CDT MAGNESIUM BLOOD Routine 09/12/2022 4:43 AM CDT GLUCOSE - POINT OF CARE Routine 09/11/2022 5:04 PM CDT EKG 12-LEAD STAT 09/11/2022 1:14 PM CDT Tachycardia CBC W AUTO DIFFERENTIAL AM Draw 09/11/2022 4:35 AM CDT BASIC METABOLIC PANEL (CALCIUM TOTAL) AM Draw 09/11/2022 4:35 AM CDT PHOSPHORUS BLOOD Routine 09/11/2022 4:35 AM CDT MAGNESIUM BLOOD Routine 09/11/2022 4:35 AM CDT GLUCOSE - POINT OF CARE Routine 09/10/2022 5:59 PM CDT GLUCOSE - POINT OF CARE Routine 09/10/2022 11:39 AM CDT VANCOMYCIN LEVEL TROUGH Timed 09/10/2022 9:06 AM CDT GLUCOSE - POINT OF CARE Routine 09/10/2022 8:00 AM CDT CBC W AUTO DIFFERENTIAL AM Draw 09/10/2022 4:43 AM CDT BASIC METABOLIC PANEL (CALCIUM TOTAL) AM Draw 09/10/2022 4:43 AM CDT PHOSPHORUS BLOOD Routine 09/10/2022 4:43 AM CDT MAGNESIUM BLOOD Routine 09/10/2022 4:43 AM CDT XR CHEST 1VW PORTABLE Routine 09/09/2022 4:40 AM CDT Acute on chronic respiratory failure with hypoxia (HCC) CBC W AUTO DIFFERENTIAL AM Draw 09/09/2022 4:15 AM CDT BASIC METABOLIC PANEL (CALCIUM TOTAL) AM Draw 09/09/2022 4:15 AM CDT PHOSPHORUS BLOOD Routine 09/09/2022 4:15 AM CDT MAGNESIUM BLOOD Routine 09/09/2022 4:15 AM CDT CULTURE SPUTUM+GRAM STAIN Routine 09/08/2022 4:38 AM CDT CBC W AUTO DIFFERENTIAL AM Draw 09/08/2022 4:37 AM CDT BASIC METABOLIC PANEL (CALCIUM TOTAL) AM Draw 09/08/2022 4:37 AM CDT PHOSPHORUS BLOOD Routine 09/08/2022 4:37 AM CDT MAGNESIUM BLOOD Routine 09/08/2022 4:37 AM CDT XR CHEST 1VW PORTABLE STAT 09/08/2022 4:12 AM CDT Aspiration pneumonitis (HCC) CT ANGIO CHEST PULM EMBOLISM STAT 09/07/2022 11:48 PM CDT Acute on chronic respiratory failure with hypoxia (HCC) EKG 12-LEAD STAT 09/07/2022 10:58 AM CDT Hyperkalemia BLOOD GASES ART + COOX PANEL Routine 09/07/2022 9:41 AM CDT CBC W AUTO DIFFERENTIAL AM Draw 09/07/2022 3:04 AM CDT BASIC METABOLIC PANEL (CALCIUM TOTAL) AM Draw 09/07/2022 3:04 AM CDT PHOSPHORUS BLOOD Routine 09/07/2022 3:04 AM CDT MAGNESIUM BLOOD Routine 09/07/2022 3:04 AM CDT EKG 12-LEAD STAT 09/06/2022 3:50 PM CDT Acute on chronic respiratory failure with hypoxia (HCC) XR CHEST 1VW PORTABLE Routine 09/06/2022 7:48 AM CDT Acute on chronic respiratory failure with hypoxia (HCC) CBC W AUTO DIFFERENTIAL AM Draw 09/06/2022 5:24 AM CDT BASIC METABOLIC PANEL (CALCIUM TOTAL) AM Draw 09/06/2022 5:24 AM CDT PHOSPHORUS BLOOD Routine 09/06/2022 5:24 AM CDT MAGNESIUM BLOOD Routine 09/06/2022 5:24 AM CDT CBC W AUTO DIFFERENTIAL AM Draw 09/05/2022 2:19 AM CDT BASIC METABOLIC PANEL (CALCIUM TOTAL) AM Draw 09/05/2022 2:19 AM CDT PHOSPHORUS BLOOD Routine 09/05/2022 2:19 AM CDT MAGNESIUM BLOOD Routine 09/05/2022 2:19 AM CDT XR CHEST 1VW PORTABLE Routine 09/04/2022 12:18 PM CDT SOB (shortness of breath) CBC W AUTO DIFFERENTIAL AM Draw 09/04/2022 3:40 AM CDT BASIC METABOLIC PANEL (CALCIUM TOTAL) AM Draw 09/04/2022 3:40 AM CDT PHOSPHORUS BLOOD Routine 09/04/2022 3:40 AM CDT MAGNESIUM BLOOD Routine 09/04/2022 3:40 AM CDT CBC W AUTO DIFFERENTIAL AM Draw 09/03/2022 2:56 AM CDT BASIC METABOLIC PANEL (CALCIUM TOTAL) AM Draw 09/03/2022 2:56 AM CDT PHOSPHORUS BLOOD Routine 09/03/2022 2:56 AM CDT MAGNESIUM BLOOD Routine 09/03/2022 2:56 AM CDT VANCOMYCIN LEVEL TROUGH Timed 09/02/2022 8:48 AM CDT CBC W AUTO DIFFERENTIAL AM Draw 09/02/2022 4:00 AM CDT BASIC METABOLIC PANEL (CALCIUM TOTAL) AM Draw 09/02/2022 4:00 AM CDT PHOSPHORUS BLOOD Routine 09/02/2022 4:00 AM CDT MAGNESIUM BLOOD Routine 09/02/2022 4:00 AM CDT GLUCOSE - POINT OF CARE Routine 09/01/2022 4:39 PM CDT GLUCOSE - POINT OF CARE Routine 09/01/2022 11:35 AM CDT GLUCOSE - POINT OF CARE Routine 09/01/2022 8:51 AM CDT GLUCOSE - POINT OF CARE Routine 09/01/2022 3:53 AM CDT HEPATITIS C AB SCREEN RFLX NAAT QUANT Routine 09/01/2022 2:05 AM CDT HIV-1 HIV-2 ANTIBODY + HIV P24 AG PANEL Routine 09/01/2022 2:05 AM CDT CBC W AUTO DIFFERENTIAL AM Draw 09/01/2022 2:05 AM CDT BASIC METABOLIC PANEL (CALCIUM TOTAL) AM Draw 09/01/2022 2:05 AM CDT PHOSPHORUS BLOOD Routine 09/01/2022 2:05 AM CDT MAGNESIUM BLOOD Routine 09/01/2022 2:05 AM CDT GLUCOSE - POINT OF CARE Routine 08/31/2022 9:57 PM CDT GLUCOSE - POINT OF CARE Routine 08/31/2022 3:32 PM CDT CARDIAC EKG ORDER 08/31/2022 12: 44 PM CDT GLUCOSE - POINT OF CARE Routine 08/31/2022 11:49 AM CDT VANCOMYCIN LEVEL TROUGH Timed 08/31/2022 9:23 AM CDT OT EVAL AND TREAT Routine 08/31/2022 8:0 9 AM CDT PT EVAL AND TREAT Routine 08/31/2022 8:0 9 AM CDT GLUCOSE - POINT OF CARE Routine 08/31/2022 7:49 AM CDT GLUCOSE - POINT OF CARE Routine 08/31/2022 5:49 AM CDT CBC W AUTO DIFFERENTIAL AM Draw 08/31/2022 12:57 AM CDT BASIC METABOLIC PANEL (CALCIUM TOTAL) AM Draw 08/31/2022 12:57 AM CDT PHOSPHORUS BLOOD Routine 08/31/2022 12:5 7 AM CDT MAGNESIUM BLOOD Routine 08/31/2022 12:57 AM CDT GLUCOSE - POINT OF CARE Routine 08/31/2022 12:56 AM CDT GLUCOSE - POINT OF CARE Routine 08/30/2022 8:48 PM CDT GLUCOSE - POINT OF CARE Routine 08/30/2022 4:30 PM CDT ECHO COMPLETE Routine 08/30/2022 4:19 PM CDT Bacteremia GLUCOSE - POINT OF CARE Routine 08/30/2022 12:35 PM CDT CULTURE BLOOD Timed 08/30/2022 9:55 AM CDT VALPROIC ACID LEVEL Routine 08/30/2022 9 :52 AM CDT CULTURE BLOOD Timed 08/30/2022 9:40 AM CDT GLUCOSE - POINT OF CARE Routine 08/30/2022 4:36 AM CDT GLUCOSE - POINT OF CARE Routine 08/30/2022 12:39 AM CDT CBC W AUTO DIFFERENTIAL AM Draw 08/30/2022 12:39 AM CDT BASIC METABOLIC PANEL (CALCIUM TOTAL) AM Draw 08/30/2022 12:39 AM CDT GLUCOSE - POINT OF CARE Routine 08/29/2022 9:03 PM CDT GLUCOSE - POINT OF CARE Routine 08/29/2022 5:01 PM CDT GLUCOSE - POINT OF CARE Routine 08/29/2022 1:31 PM CDT GLUCOSE - POINT OF CARE Routine 08/29/2022 8:25 AM CDT GLUCOSE - POINT OF CARE Routine 08/29/2022 5:45 AM CDT HEMOGLOBIN A1C Routine 08/29/2022 5:37 AM CDT CBC W AUTO DIFFERENTIAL Routine 08/29/2022 5:37 AM CDT CULTURE URINE Routine 08/29/2022 5:14 AM CDT CULTURE SPUTUM+GRAM STAIN Routine 08/29/2022 5:13 AM CDT PT-INR SL[facility] STAT 08/28/2022 10:24 PM CDT CALCIUM IONIZED WHOLE BLOOD STAT 08/28/2022 10:24 PM CDT COMPREHENSIVE METABOLIC PANEL STAT 08/28/2022 10:24 PM CDT PHOSPHORUS BLOOD STAT 08/28/2022 10:2 4 PM CDT MAGNESIUM BLOOD STAT 08/28/2022 10:24 PM CDT LACTIC ACID BLOOD STAT 08/28/2022 10: 24 PM CDT XR CHEST 1VW PORTABLE STAT 08/28/2022 7:12 PM CDT Pulmonary infiltrate Acute on chronic respiratory failure with hypoxia (HCC) XR ABDOMEN KUB PORTABLE STAT 08/28/2022 7:12 PM CDT History of stroke Protein-calorie malnutrition, unspecified severity (HCC) BLOOD GASES ART + COOX PANEL STAT 08/28/2022 6:49 PM CDT URINALYSIS REFLEX TO MICROSCOPIC NO CULTURE STAT 08/28/2022 3:16 PM CDT XR CHEST 1VW PORTABLE STAT 08/28/2022 3:12 PM CDT SOB (shortness of breath) TROPONIN-I HIGH SENSITIVE REFLEX 1HOUR Timed 08/28/2022 2:47 PM CDT MRSA DNA PCR STAT 08/28/2022 2:42 PM CDT LACTIC ACID BLOOD REFLEX TO REPEAT STAT 08/28/2022 12:51 PM CDT PROCALCITONIN LEVEL STAT 08/28/2022 1 2:51 PM CDT BCID PANEL Routine 08/28/2022 12:51 PM CDT TROPONIN-I HIGH SENSITIVE BASELINE + 1HR STAT 08/28/2022 12:51 PM CDT CULTURE BLOOD Timed 08/28/2022 12:51 PM CDT CBC W AUTO DIFFERENTIAL STAT 08/28/2022 12:51 PM CDT COMPREHENSIVE METABOLIC PANEL STAT 08/28/2022 12:51 PM CDT CULTURE BLOOD Timed 08/28/2022 12:38 PM CDT SARS-COV-2 (COVID-19)+INFLU A+B PCR RAPID STAT 08/28/2022 12:20 PM CDT EKG 12-LEAD Routine 08/28/2022 12:15 PM CDT SOB (shortness of breath) documented in this encounter Results * CARDIAC EKG ORDER (11/19/2022 2:23 PM CDT) Narrative 11/19/2022 2:23 PM CDT Ordered by an unspecified provider. Scanned Document CARDIAC SERVICES ORD ERABLES * GLUCOSE - POINT OF CARE (11/09/2022 8:32 AM CDT) Glucose WB/POC 115 70 - 115 mg/dL 11/09/2022 8:33 AM CDT [facility] Specimen Type Cap Fingerstick 2022 8:33 AM CDT [facility] Blood BLOOD SPECIMEN / Unknown 11/09/2022 8:32 AM CDT 11/09/2022 8:33 AM CDT Vicky Silva MD LAB - POINT OF CARE ORDERABLES Performing Organization Address City/[facility]/ZIP Co de Phone Number [address] [address], [facility] [phone] * GLUCOSE - POINT OF CARE (11/08/2022 7:52 PM CDT) Glucose WB/POC 112 70 - 115 mg/dL 11/09/2022 7:21 AM CDT [facility] Specimen Type Cap Fingerstick 2022 7:21 AM CDT [facility] Blood BLOOD SPECIMEN / Unknown 11/08/2022 7:52 PM CDT 11/09/2022 7:20 AM CDT Vicky Silva MD LAB - POINT OF CARE ORDERABLES [address] [address], [place] [phone] * GLUCOSE - POINT OF CARE (11/08/2022 8:00 AM CDT) Glucose WB/POC 75 70 - 115 mg/dL 11/08/2022 8:00 AM CDT [facility] Specimen Type Cap Fingerstick 2022 8:00 AM CDT [facility] Blood BLOOD SPECIMEN / Unknown 11/08/2022 8:00 AM CDT 11/08/2022 8:00 AM CDT Vicky Silva MD LAB - POINT OF CARE ORDERABLES [facility] [address] [place] [id number], [place] [phone] * GLUCOSE - POINT OF CARE (11/07/2022 9:58 PM CDT) Glucose WB/POC 97 70 - 115 mg/dL 11/07/2022 10:03 PM CDT [facility] Specimen Type Cap Fingerstick 2022 10:03 PM CDT [facility] Blood BLOOD SPECIMEN / Unknown 11/07/2022 9:58 PM CDT 11/07/2022 10:03 PM CDT Vicky Silva MD LAB - POINT OF CARE ORDERABLES Performing Organization Address City/[facility]/ZIP Co de Phone Number [address] [address], [place] [phone] * GLUCOSE - POINT OF CARE (11/07/2022 7:17 AM CDT) Glucose WB/POC 111 70 - 115 mg/dL 11/07/2022 7:18 AM CDT [facility] Specimen Type Cap Fingerstick 2022 7:18 AM CDT [facility] Blood BLOOD SPECIMEN / Unknown 11/07/2022 7:17 AM CDT 11/07/2022 7:18 AM CDT Vicky Silva MD LAB - POINT OF CARE ORDERABLES Performing Organization Address City/[facility]/ZIP Co de Phone Number [address] [address], [place] [phone] * GLUCOSE - POINT OF CARE (11/06/2022 8:32 PM CDT) Glucose WB/POC 108 70 - 115 mg/dL 11/06/2022 8:35 PM CDT [facility] Specimen Type Cap Fingerstick 2022 8:35 PM CDT [facility] Blood BLOOD SPECIMEN / Unknown 11/06/2022 8:32 PM CDT 11/06/2022 8:35 PM CDT Vicky Silva MD LAB - POINT OF CARE ORDERABLES Performing Organization Address City/[facility]/ZIP Co de Phone Number [address] [address], [place] [phone] * (ABNORMAL) GLUCOSE - POINT OF CARE (11/06/2022 7:52 AM CDT) Glucose WB/POC 126(H) 70 - 115 mg/dL 11/06/2022 7:54 AM CDT [facility] Specimen Type Cap Fingerstick 2022 7:54 AM CDT [facility] Blood BLOOD SPECIMEN / Unknown 11/06/2022 7:52 AM CDT 11/06/2022 7:54 AM CDT Vicky Silva MD LAB - POINT OF CARE ORDERABLES Performing Organization Address [facility]/ZIP Co de Phone Number [address] [address], [place] [phone] * GLUCOSE - POINT OF CARE (11/04/2022 10:46 PM CDT) Glucose WB/POC 100 70 - 115 mg/dL 11/04/2022 10:51 PM CDT [facility] Specimen Type Cap Fingerstick 2022 10:51 PM CDT [facility] Blood BLOOD SPECIMEN / Unknown 11/04/2022 10:46 PM CDT 11/04/2022 10:51 PM CDT Vicky Silva MD LAB - POINT OF CARE ORDERABLES Performing Organization Address City/[facility]/ZIP Co de Phone Number [address] [address], [place] [phone] * GLUCOSE - POINT OF CARE (11/04/2022 7:42 AM CDT) Glucose WB/POC 106 70 - 115 mg/dL 11/04/2022 7:48 AM [facility] Specimen Type Arterial 11/04/2022 7:48 AM [facility] Blood BLOOD SPECIMEN / Unknown 11/04/2022 7:42 AM CDT 11/04/2022 7:48 AM CDT Vicky Silva MD LAB - POINT OF CARE ORDERABLES [facility] [address] [place] [phone], [facility] [phone] * (ABNORMAL) CBC W AUTO DIFFERENTIAL (11/04/2022 6:33 AM CDT) Pathologist [facility] WBC 7.4 3.5 - 10.5 10? 3 /uL 11/04/2022 7:20 AM [facility] RBC 4.63 4.30 - 5.70 10? 6 /uL 11/04/2022 7:20 AM [facility] Hemoglobin 14.2 12.0 - 17.6 g/dL 11/04/2022 7:20 AM [facility] Hematocrit 44.4 35.2 - 51.7 % 11/04/2022 7:20 AM [facility] MCV 95.9 80.7 - 98.3 fL 11/04/2022 7:20 AM [facility] MCH 30.7 26.7 - 34.0 pg 11/04/2022 7:20 AM [facility] MCHC 32.0 30.8 - 35.9 g/dL 11/04/2022 7:20 AM [facility] RDW-SD 48.5 36.0 - 50.0 fL 11/04/2022 7:20 AM [facility] RDW-CV 13.8 11.2 - 14.8 % 11/04/2022 7:20 AM [facility] Platelet Count 169 150 - 400 10? 3 /uL 11/04/2022 7:20 AM [facility] MPV 11/04/2022 7:20 AM [facility] Comment:Unable to Report Immature Platelet Fraction 15.3(H) 1.1 - 6.2 % 11/04/2022 7:20 AM [facility] nRBC Absolute 0.00 0 10? 3 /uL 11/04/2022 7:20 AM [facility] nRBC Auto 0.0 0 /100 WBC 11/04/2022 7:20 AM [facility] Neutrophils % 48.7 35.0 - 70.0 % 11/04/2022 7:20 AM [facility] Lymphocytes % 36.5 20.0 - 43.0 % 11/04/2022 7:20 AM [facility] Monocytes % 9.6 5.0 - 13.0 % 11/04/2022 7:20 AM [facility] Eosinophils % 4.5 0.0 - 6.0 % 11/04/2022 7:20 AM [facility] Basophil % 0.3 0.0 - 2.0 % 11/04/2022 7:20 AM [facility] Neutrophils Absolute 3.60 1.60 - 7.00 10? 3 /uL 11/04/2022 7:20 AM [facility] Lymphocyte Absolute 2.70 1.10 - 3.90 10? 3 /uL 11/04/2022 7:20 AM [facility] Monocytes Absolute 0.71 0.26 - 1.07 10? 3 /uL 11/04/2022 7:20 AM [facility] Eosinophils Absolute 0.33 0.00 - 0.47 10? 3 /uL 11/04/2022 7:20 AM [facility] Basophils Absolute 0.02 0.00 - 0.08 10? 3 /uL 11/04/2022 7:20 AM [facility] Immature Granulocytes % 0.4 0.0 - 1.0 % 11/04/2022 7:20 AM [facility] Immature Granulocytes Absolute 0.03 11/04/2022 7:20 AM [facility] Blood BLOOD SPECIMEN / Unknown Lab Venipuncture / Unknown 11/04/2022 6:33 AM CDT 11/04/2022 6:52 AM CDT Vicky Silva MD LAB - HEMATOLOGY ORD BRENDA Performing Organization Address City/[facility]/ZIP Co de Phone Number [address] [address], [place] [phone] * MAGNESIUM BLOOD (11/04/2022 6:33 AM CDT) Magnesium 1.8 1.6 - 2.6 mg/dL 11/04/2022 7:13 AM CDT [facility] Blood BLOOD SPECIMEN / Unknown Lab Venipuncture / Unknown 11/04/2022 6:33 AM CDT 11/04/2022 6:57 AM CDT Vicky Silva MD LAB - CHEMISTRY MARSHAL MEDEROS Performing Organization Address [facility]/ZIP Co de Phone Number [address] [address], [place] [phone] * PHOSPHORUS BLOOD (11/04/2022 6:33 AM CDT) Phosphorus 3.0 2.8 - 5.1 mg/dL 11/04/2022 7:13 AM CDT [facility] Blood BLOOD SPECIMEN / Unknown Lab Venipuncture / Unknown 11/04/2022 6:33 AM CDT 11/04/2022 6:57 AM CDT Vicky Silva MD LAB - CHEMISTRY MARSHAL MEDEROS Performing Organization Address City/[facility]/ZIP Co de Phone Number [address] [address], [place] [phone] * (ABNORMAL) COMPREHENSIVE METABOLIC PANEL (11/04/2022 6:33 AM CDT) BUN 14 7 - 26 mg/dL 11/04/2022 7:13 AM CDT [facility] Creatinine 0.47(L) 0.71 - 1.16 mg/dL 11/04/2022 7:13 AM [facility] Sodium 136 136 - 145 mmol/L 11/04/2022 7:13 AM [facility] Potassium 4.0 3.5 - 4.5 mmol/L 11/04/2022 7:13 AM [facility] Chloride 106 98 - 107 mmol/L 11/04/2022 7:13 AM [facility] CO2 24 22 - 29 mmol/L 11/04/2022 7:13 AM [facility] Glucose 98 70 - 115 mg/dL 11/04/2022 7:13 AM [facility] Calcium 9.7 8.4 - 10.2 mg/dL 11/04/2022 7:13 AM [facility] Protein Total 7.7 6.0 - 8.3 g/dL 11/04/2022 7:13 AM [facility] Albumin 2.9(L) 3.4 - 5.0 g/dL 11/04/2022 7:13 AM [facility] Bilirubin Total 0.2 0.2 - 1.2 mg/dL 11/04/2022 7:13 AM [facility] Alkaline Phosphatase 124 40 - 150 U/L 11/04/2022 7:13 AM [facility] ALT 27 5 - 55 U/L 11/04/2022 7:13 AM [facility] AST 25 5 - 34 U/L 11/04/2022 7:13 AM [facility] Anion Gap 10 8 - 18 11/04/2022 7:13 AM [facility] BUN/Creatinine Ratio 30(H) 7 - 23 11/04/2022 7:13 AM [facility] Osmolality Calculated 282 270 - 300 mOsm/kg 11/04/2022 7:13 AM [facility] Albumin/Globulin Ratio 0.6(L) 1.1 - 2.3 11/04/2022 7:13 AM [facility] eGFR by CKD-EPI >90 >=90 mL/min/1.7 3 m2 11/04/2022 7:13 AM [facility] Blood BLOOD SPECIMEN / Unknown Lab Venipuncture / Unknown 11/04/2022 6:33 AM CDT 11/04/2022 6:57 AM CDT Vicky Silva MD LAB - CHEMISTRY MARSHAL MEDEROS Performing Organization Address City/[facility]/ZIP Co de Phone Number [address] [address], [place] [phone] * GLUCOSE - POINT OF CARE (11/03/2022 8:08 PM CDT) Glucose WB/POC 112 70 - 115 mg/dL 11/03/2022 8:12 PM CDT [facility] Specimen Type Cap Fingerstick 2022 8:12 PM CDT [facility] Blood BLOOD SPECIMEN / Unknown 11/03/2022 8:08 PM CDT 11/03/2022 8:12 PM CDT Vicky Silva MD LAB - POINT OF CARE ORDERABLES Performing Organization Address [facility]/ZIP Co de Phone Number [address] [address], [place] [phone] * GLUCOSE - POINT OF CARE (11/03/2022 5:54 AM CDT) Glucose WB/POC 106 70 - 115 mg/dL 11/03/2022 5:55 AM CDT [facility] Specimen Type Cap Fingerstick 2022 5:55 AM CDT [facility] Blood BLOOD SPECIMEN / Unknown 11/03/2022 5:54 AM CDT 11/03/2022 5:55 AM CDT Vicky Silva MD LAB - POINT OF CARE ORDERABLES Performing Organization Address City/[facility]/ZIP Co de Phone Number [address] [address], [place] [phone] * GLUCOSE - POINT OF CARE (11/03/2022 12:35 AM CDT) Glucose WB/POC 89 70 - 115 mg/dL 11/03/2022 12:36 AM CDT [facility] Specimen Type Cap Fingerstick 2022 12:36 AM CDT [facility] Blood BLOOD SPECIMEN / Unknown 11/03/2022 12:35 AM CDT 11/03/2022 12:36 AM CDT Vicky Silva MD LAB - POINT OF CARE ORDERABLES [address] [address], [place] [phone] * GLUCOSE - POINT OF CARE (11/02/2022 6:08 PM CDT) Glucose WB/POC 98 70 - 115 mg/dL 11/02/2022 6:09 PM CDT [facility] Specimen Type Cap Fingerstick 2022 6:09 PM CDT [facility] Blood BLOOD SPECIMEN / Unknown 11/02/2022 6:08 PM CDT 11/02/2022 6:09 PM CDT Vicky Silva MD LAB - POINT OF CARE ORDERABLES Performing Organization Address City/[facility]/ZIP Co de Phone Number [address] [address], [place] [phone] * GLUCOSE - POINT OF CARE (11/02/2022 5:56 AM CDT) Glucose WB/POC 98 70 - 115 mg/dL 11/02/2022 5:57 AM CDT [facility] Specimen Type Cap Fingerstick 2022 5:57 AM CDT [facility] Blood BLOOD SPECIMEN / Unknown 11/02/2022 5:56 AM CDT 11/02/2022 5:57 AM CDT Venessa Rosado DO LAB - POINT OF CARE ORDERABLES [address] [address], [place] [phone] * GLUCOSE - POINT OF CARE (11/02/2022 12:26 AM CDT) Glucose WB/POC 88 70 - 115 mg/dL 11/02/2022 12:27 AM CDT [facility] Specimen Type Cap Fingerstick 2022 12:27 AM CDT [facility] Blood BLOOD SPECIMEN / Unknown 11/02/2022 12:26 AM CDT 11/02/2022 12:27 AM CDT Venessa Rosado DO LAB - POINT OF CARE ORDERABLES Performing Organization Address City/[facility]/ZIP Co de Phone Number [facility] [address] [place] [phone], [place] [phone] * GLUCOSE - POINT OF CARE (11/01/2022 12:22 PM CDT) Glucose WB/POC 110 70 - 115 mg/dL 11/01/2022 12:23 PM CDT [facility] Specimen Type Cap Fingerstick 2022 12:23 PM CDT [facility] Blood BLOOD SPECIMEN / Unknown 11/01/2022 12:22 PM CDT 11/01/2022 12:23 PM CDT Venessa Rosado DO LAB - POINT OF CARE ORDERABLES Performing Organization Address City/[facility]/ZIP Co de Phone Number [facility] [address] [place] [phone], [place] [phone] * GLUCOSE - POINT OF CARE (11/01/2022 7:00 AM CDT) Glucose WB/POC 107 70 - 115 mg/dL 11/01/2022 7:05 AM CDT [facility] Specimen Type Cap Fingerstick 2022 7:05 AM CDT [facility] Blood BLOOD SPECIMEN / Unknown 11/01/2022 7:00 AM CDT 11/01/2022 7:05 AM CDT Venessa Rosado DO LAB - POINT OF CARE ORDERABLES [address] [address], [facility] [phone] * PHOSPHORUS BLOOD (11/01/2022 6:44 AM CDT) Pathologist [facility] Phosphorus 3.2 2.8 - 5.1 mg/dL 11/01/2022 8:04 AM CDT [facility] Blood BLOOD SPECIMEN / Unknown Lab Venipuncture / Unknown 11/01/2022 6:44 AM CDT 11/01/2022 7:37 AM CDT Petra Fuentes MD LAB - CHEMISTRY MARSHAL MEDEROS Performing Organization Address City/[facility]/ZIP Co de Phone Number [address] [address], [facility] [phone] * MAGNESIUM BLOOD (11/01/2022 6:44 AM CDT) Pathologist [facility] Magnesium 1.8 1.6 - 2.6 mg/dL 11/01/2022 8:04 AM CDT [facility] Blood BLOOD SPECIMEN / Unknown Lab Venipuncture / Unknown 11/01/2022 6:44 AM CDT 11/01/2022 7:37 AM CDT Petra Fuentes MD LAB - CHEMISTRY [facility]SHAL MEDEROS [address] [address], [facility] [phone] * (ABNORMAL) CBC W AUTO DIFFERENTIAL (11/01/2022 6:44 AM CDT) WBC 6.8 3.5 - 10.5 10? 3 /uL 11/01/2022 8:01 AM CDT [facility] RBC 4.42 4.30 - 5.70 10? 6 /uL 11/01/2022 8:01 AM CDT [facility] Hemoglobin 13.5 12.0 - 17.6 g/dL 11/01/2022 8:01 AM CDT [facility] Hematocrit 42.3 35.2 - 51.7 % 11/01/2022 8:01 AM [facility] MCV 95.7 80.7 - 98.3 fL 11/01/2022 8:01 AM [facility] MCH 30.5 26.7 - 34.0 pg 11/01/2022 8:01 AM [facility] MCHC 31.9 30.8 - 35.9 g/dL 11/01/2022 8:01 AM [facility] RDW-SD 48.6 36.0 - 50.0 fL 11/01/2022 8:01 AM [facility] RDW-CV 13.7 11.2 - 14.8 % 11/01/2022 8:01 AM [facility] Platelet Count 185 150 - 400 10? 3 /uL 11/01/2022 8:01 AM [facility] MPV 11/01/2022 8:01 AM [facility] Comment:Unable to Report Immature Platelet Fraction 12.9(H) 1.1 - 6.2 % 11/01/2022 8:01 AM [facility] nRBC Absolute 0.00 0 10? 3 /uL 11/01/2022 8:01 AM [facility] nRBC Auto 0.0 0 /100 WBC 11/01/2022 8:01 AM [facility] Neutrophils % 47.7 35.0 - 70.0 % 11/01/2022 8:01 AM [facility] Lymphocytes % 40.2 20.0 - 43.0 % 11/01/2022 8:01 AM [facility] Monocytes % 8.8 5.0 - 13.0 % 11/01/2022 8:01 AM [facility] Eosinophils % 3.1 0.0 - 6.0 % 11/01/2022 8:01 AM [facility] Basophil % 0.1 0.0 - 2.0 % 11/01/2022 8:01 AM [facility] Neutrophils Absolute 3.23 1.60 - 7.00 10? 3 /uL 11/01/2022 8:01 AM [facility] Lymphocyte Absolute 2.73 1.10 - 3.90 10? 3 /uL 11/01/2022 8:01 AM [facility] Monocytes Absolute 0.60 0.26 - 1.07 10? 3 /uL 11/01/2022 8:01 AM [facility] Eosinophils Absolute 0.21 0.00 - 0.47 10? 3 /uL 11/01/2022 8:01 AM [facility] Basophils Absolute 0.01 0.00 - 0.08 10? 3 /uL 11/01/2022 8:01 AM [facility] Immature Granulocytes % 0.1 0.0 - 1.0 % 11/01/2022 8:01 AM [facility] Immature Granulocytes Absolute 0.01 11/01/2022 8:01 AM [facility] Blood BLOOD SPECIMEN / Unknown Lab Venipuncture / Unknown 11/01/2022 6:44 AM CDT 11/01/2022 7:37 AM T Petra Fuentes MD LAB - HEMATOLOGY ORD ERABLES [facility] [address] [place] [address], [facility] [phone] * (ABNORMAL) BASIC METABOLIC PANEL (CALCIUM TOTAL) (11/01/2022 6:44 AM T) BUN 14 7 - 26 mg/dL 11/01/2022 8:04 AM [facility] Creatinine 0.51(L) 0.71 - 1.16 mg/dL 11/01/2022 8:04 AM [facility] Sodium 139 136 - 145 mmol/L 11/01/2022 8:04 AM [facility] Potassium 4.0 3.5 - 4.5 mmol/L 11/01/2022 8:04 AM [facility] Chloride 106 98 - 107 mmol/L 11/01/2022 8:04 AM [facility] CO2 27 22 - 29 mmol/L 11/01/2022 8:04 AM [facility] Glucose 90 70 - 115 mg/dL 11/01/2022 8:04 AM [facility] Calcium 9.6 8.4 - 10.2 mg/dL 11/01/2022 8:04 AM [facility] Anion Gap 10 8 - 18 11/01/2022 8:04 AM [facility] BUN/Creatinine Ratio 27(H) 7 - 23 11/01/2022 8:04 AM [facility] Osmolality Calculated 288 270 - 300 mOsm/kg 11/01/2022 8:04 AM [facility] eGFR by CKD-EPI >90 >=90 mL/min/1.7 3 m2 11/01/2022 8:04 AM [facility] Blood BLOOD SPECIMEN / Unknown Lab Venipuncture / Unknown 11/01/2022 6:44 AM CDT 11/01/2022 7:37 AM CDT Petra Fuentes MD LAB - CHEMISTRY [facility]SHAL MEDEROS [address] [address], [place] [phone] * GLUCOSE - POINT OF CARE (11/01/2022 12:28 AM CDT) Glucose WB/POC 108 70 - 115 mg/dL 11/01/2022 12:33 AM CDT [facility] Specimen Type Cap Fingerstick 2022 12:33 AM T [facility] Blood BLOOD SPECIMEN / Unknown 11/01/2022 12:28 AM CDT 11/01/2022 12:33 AM CDT Venessa Rosado DO LAB - POINT OF CARE ORDERABLES [address] [address], [place] [phone] * GLUCOSE - POINT OF CARE (10/31/2022 11:37 AM CDT) Glucose WB/POC 93 70 - 115 mg/dL 10/31/2022 11:41 AM CDT [facility] Specimen Type Cap Fingerstick 2022 11:41 AM CDT [facility] Blood BLOOD SPECIMEN / Unknown 10/31/2022 11:37 AM CDT 10/31/2022 11:41 AM CDT Venessa Rosado LAB - POINT OF CARE ORDERABLES [facility] [address] [place] [address], [place] [phone] * GLUCOSE - POINT OF CARE (10/31/2022 12:23 AM CDT) Glucose WB/POC 94 70 - 115 mg/dL 10/31/2022 12:30 AM CDT [facility] Specimen Type Cap Fingerstick 2022 12:30 AM CDT [facility] Blood BLOOD SPECIMEN / Unknown 10/31/2022 12:23 AM CDT 10/31/2022 12:30 AM CDT Venessa Rosado LAB - POINT OF CARE ORDERABLES Performing Organization Address City/[facility]/ZIP Co de Phone Number [facility] [address] [place] [address], [place] [phone] * GLUCOSE - POINT OF CARE (10/30/2022 5:12 PM CDT) Glucose WB/POC 112 70 - 115 mg/dL 10/30/2022 5:14 PM CDT [facility] Specimen Type Cap Fingerstick 2022 5:14 PM CDT [facility] Blood BLOOD SPECIMEN / Unknown 10/30/2022 5:12 PM CDT 10/30/2022 5:14 PM CDT Venessa Rosado DO LAB - POINT OF CARE ORDERABLES [facility] [address] [place] [address], [place] [phone] * GLUCOSE - POINT OF CARE (10/30/2022 11:18 AM CDT) Glucose WB/POC 99 70 - 115 mg/dL 10/30/2022 11:25 AM CDT [facility] Specimen Type Cap Fingerstick 2022 11:25 AM CDT [facility] Blood BLOOD SPECIMEN / Unknown 10/30/2022 11:18 AM CDT 10/30/2022 11:25 AM CDT Venessa Rosado DO LAB - POINT OF CARE ORDERABLES [address] [address], [place] [phone] * (ABNORMAL) PHOSPHORUS BLOOD (10/30/2022 5:46 AM CDT) Pathologist [facility] Phosphorus 2.7(L) 2.8 - 5.1 mg/dL 10/30/2022 7:04 AM CDT [facility] Blood BLOOD SPECIMEN / Unknown Lab Venipuncture / Unknown 10/30/2022 5:46 AM CDT 10/30/2022 6:37 AM CDT Petra Fuentes MD LAB - CHEMISTRY MARSHAL MEDEROS Performing Organization Address [facility]/ZIP Co de Phone Number [address] [address], [place] [phone] * MAGNESIUM BLOOD (10/30/2022 5:46 AM CDT) Pathologist [facility] Magnesium 1.8 1.6 - 2.6 mg/dL 10/30/2022 7:04 AM CDT [facility] Blood BLOOD SPECIMEN / Unknown Lab Venipuncture / Unknown 10/30/2022 5:46 AM CDT 10/30/2022 6:37 AM CDT Petra Fuentes MD LAB - CHEMISTRY MARSHAL MEDEROS Performing Organization Address City/[facility]/ZIP Co de Phone Number [address] [address], [place] [phone] * (ABNORMAL) CBC W AUTO DIFFERENTIAL (10/30/2022 5:46 AM T) WBC 7.9 3.5 - 10.5 10? 3 /uL 10/30/2022 7:20 AM [facility] RBC 4.45 4.30 - 5.70 10? 6 /uL 10/30/2022 7:20 AM [facility] Hemoglobin 13.5 12.0 - 17.6 g/dL 10/30/2022 7:20 AM [facility] Hematocrit 41.0 35.2 - 51.7 % 10/30/2022 7:20 AM [facility] MCV 92.1 80.7 - 98.3 fL 10/30/2022 7:20 AM [facility] MCH 30.3 26.7 - 34.0 pg 10/30/2022 7:20 AM [facility] MCHC 32.9 30.8 - 35.9 g/dL 10/30/2022 7:20 AM [facility] RDW-SD 46.0 36.0 - 50.0 fL 10/30/2022 7:20 AM [facility] RDW-CV 13.7 11.2 - 14.8 % 10/30/2022 7:20 AM [facility] Platelet Count 178 150 - 400 10? 3 /uL 10/30/2022 7:20 AM [facility] MPV 10/30/2022 7:20 AM [facility] Comment:Unable to Report Immature Platelet Fraction 18.6(H) 1.1 - 6.2 % 10/30/2022 7:20 AM [facility] nRBC Absolute 0.00 0 10? 3 /uL 10/30/2022 7:20 AM [facility] nRBC Auto 0.0 0 /100 WBC 10/30/2022 7:20 AM [facility] Neutrophils % 54.9 35.0 - 70.0 % 10/30/2022 7:20 AM [facility] Lymphocytes % 34.6 20.0 - 43.0 % 10/30/2022 7:20 AM [facility] Monocytes % 6.9 5.0 - 13.0 % 10/30/2022 7:20 AM CDT [facility] Eosinophils % 2.9 0.0 - 6.0 % 10/30/2022 7:20 AM [facility] Basophil % 0.3 0.0 - 2.0 % 10/30/2022 7:20 AM T [facility] Neutrophils Absolute 4.36 1.60 - 7.00 10? 3 /uL 10/30/2022 7:20 AM T [facility] Lymphocyte Absolute 2.75 1.10 - 3.90 10? 3 /uL 10/30/2022 7:20 AM [facility] Monocytes Absolute 0.55 0.26 - 1.07 10? 3 /uL 10/30/2022 7:20 AM [facility] Eosinophils Absolute 0.23 0.00 - 0.47 10? 3 /uL 10/30/2022 7:20 AM [facility] Basophils Absolute 0.02 0.00 - 0.08 10? 3 /uL 10/30/2022 7:20 AM [facility] Immature Granulocytes % 0.4 0.0 - 1.0 % 10/30/2022 7:20 AM [facility] Immature Granulocytes Absolute 0.03 10/30/2022 7:20 AM [facility] Blood BLOOD SPECIMEN / Unknown Lab Venipuncture / Unknown 10/30/2022 5:46 AM CDT 10/30/2022 6:37 AM CDT Petra Fuentes MD LAB - HEMATOLOGY ORD ERABLES [facility] [address] [place] [address], [facility] [phone] * (ABNORMAL) BASIC METABOLIC PANEL (CALCIUM TOTAL) (10/30/2022 5:46 AM CDT) BUN 14 7 - 26 mg/dL 10/30/2022 7:04 AM T [facility] Creatinine 0.41(L) 0.71 - 1.16 mg/dL 10/30/2022 7:04 AM [facility] Sodium 140 136 - 145 mmol/L 10/30/2022 7:04 AM [facility] Potassium 3.6 3.5 - 4.5 mmol/L 10/30/2022 7:04 AM [facility] Chloride 107 98 - 107 mmol/L 10/30/2022 7:04 AM [facility] CO2 26 22 - 29 mmol/L 10/30/2022 7:04 AM [facility] Glucose 108 70 - 115 mg/dL 10/30/2022 7:04 AM [facility] Calcium 9.9 8.4 - 10.2 mg/dL 10/30/2022 7:04 AM [facility] Anion Gap 11 8 - 18 10/30/2022 7:04 AM [facility] BUN/Creatinine Ratio 34(H) 7 - 23 10/30/2022 7:04 AM [facility] Osmolality Calculated 291 270 - 300 mOsm/kg 10/30/2022 7:04 AM [facility] eGFR by CKD-EPI >90 >=90 mL/min/1.7 3 m2 10/30/2022 7:04 AM [facility] Blood BLOOD SPECIMEN / Unknown Lab Venipuncture / Unknown 10/30/2022 5:46 AM CDT 10/30/2022 6:37 AM CDT Petra Fuentes MD LAB - CHEMISTRY MARSHAL MEDEROS [facility] Organization Address City/State/[facility] Co de Phone Number [facility] [address] [place] [address], [facility] [phone] * (ABNORMAL) VALPROIC ACID FREE+TOTAL PANEL (10/30/2022 5:46 AM CDT) Valproic Acid % Free 21(H) 5 - 18 % 11/06/2022 12:30 PM CDT [facility] ([facility]) Comment: INTERPRETIVE INFORMATION: VPA-percent Free Valproic Acid, [...] include headache, somnolence and dizziness. Performed By: [facility] [employer] [address] [place] [address] Steward/Steward[employer] Dining Room: Power Milian MD, PhD Valproic Acid Free 16 7 - 23 ug/mL 11/06/2022 12:30 PM CDT [facility] ([facility]) Valproic Acid Total 76 50 - 125 ug/mL 11/06/2022 12:30 PM CDT [facility]) Blood BLOOD SPECIMEN / Unknown Lab Venipuncture / Unknown 10/30/2022 5:46 AM CDT 10/30/2022 6:29 AM CDT Neha Palomino MD LAB - THERAPEUTIC DR UG MONITORING ORDERABLES [facility] ([facility]) [address] [place] [address], [facility] * GLUCOSE - POINT OF CARE (10/30/2022 12:03 AM CDT) Glucose WB/POC 84 70 - 115 mg/dL 10/30/2022 12:04 AM CDT [facility] Specimen Type Cap Fingerstick 2022 12:04 AM CDT [facility] Blood BLOOD SPECIMEN / Unknown 10/30/2022 12:03 AM CDT 10/30/2022 12:04 AM CDT Venessa Rosado DO LAB - POINT OF CARE ORDERABLES [facility] [address] [place] [address], [place] [phone] * (ABNORMAL) GLUCOSE - POINT OF CARE (10/29/2022 11:55 AM CDT) Glucose WB/POC 116(H) 70 - 115 mg/dL 10/29/2022 11:56 AM CDT [facility] Specimen Type Cap Fingerstick 2022 11:56 AM CDT [facility] Blood BLOOD SPECIMEN / Unknown 10/29/2022 11:55 AM CDT 10/29/2022 11:56 AM CDT Venessa Rosado DO LAB - POINT OF CARE ORDERABLES [facility] [address] [place] [address], [place] [phone] * GLUCOSE - POINT OF CARE (10/29/2022 5:04 AM CDT) Glucose WB/POC 96 70 - 115 mg/dL 10/29/2022 5:09 AM CDT [facility] Specimen Type Cap Fingerstick 2022 5:09 AM CDT [facility] Blood BLOOD SPECIMEN / Unknown 10/29/2022 5:04 AM CDT 10/29/2022 5:09 AM CDT Venessa Rosado DO LAB - POINT OF CARE ORDERABLES Performing Organization Address City/[facility]/ZIP Co de Phone Number [address] [address], [place] [phone] * GLUCOSE - POINT OF CARE (10/29/2022 12:15 AM CDT) Glucose WB/POC 88 70 - 115 mg/dL 10/29/2022 5:09 AM CDT [facility] Specimen Type Cap Fingerstick 2022 5:09 AM CDT [facility] Blood BLOOD SPECIMEN / Unknown 10/29/2022 12:15 AM CDT 10/29/2022 5:09 AM CDT Venessa Rosado DO LAB - POINT OF CARE ORDERABLES [address] [address], [facility] [phone] * GLUCOSE - POINT OF CARE (10/28/2022 12:25 PM CDT) Glucose WB/POC 106 70 - 115 mg/dL 10/28/2022 12:26 PM CDT [facility] Specimen Type Cap Fingerstick 2022 12:26 PM CDT [facility] Blood BLOOD SPECIMEN / Unknown 10/28/2022 12:25 PM CDT 10/28/2022 12:26 PM CDT Venessa Rosado DO LAB - POINT OF CARE ORDERABLES [address] [address], [facility] [phone] * PHOSPHORUS BLOOD (10/28/2022 6:21 AM CDT) Phosphorus 2.8 2.8 - 5.1 mg/dL 10/28/2022 7:43 AM CDT [facility] Blood BLOOD SPECIMEN / Unknown Lab Venipuncture / Unknown 10/28/2022 6:21 AM CDT 10/28/2022 7:12 AM CDT Petra Fuentes MD LAB - CHEMISTRY MARSHAL MEDEROS [address] [address], [place] [phone] * MAGNESIUM BLOOD (10/28/2022 6:21 AM CDT) Magnesium 1.7 1.6 - 2.6 mg/dL 10/28/2022 7:43 AM CDT [facility] Blood BLOOD SPECIMEN / Unknown Lab Venipuncture / Unknown 10/28/2022 6:21 AM CDT 10/28/2022 7:12 AM CDT Petra Fuentes MD LAB - CHEMISTRY MARSHAL MEDEROS [facility] [address] [place] [address], [facility] [phone] * (ABNORMAL) CBC W AUTO DIFFERENTIAL (10/28/2022 6:21 AM CDT) WBC 7.6 3.5 - 10.5 10? 3 /uL 10/28/2022 8:07 AM [facility] RBC 4.35 4.30 - 5.70 10? 6 /uL 10/28/2022 8:07 AM [facility] Hemoglobin 13.4 12.0 - 17.6 g/dL 10/28/2022 8:07 AM [facility] Hematocrit 40.9 35.2 - 51.7 % 10/28/2022 8:07 AM [facility] MCV 94.0 80.7 - 98.3 fL 10/28/2022 8:07 AM [facility] MCH 30.8 26.7 - 34.0 pg 10/28/2022 8:07 AM [facility] MCHC 32.8 30.8 - 35.9 g/dL 10/28/2022 8:07 AM [facility] RDW-SD 45.9 36.0 - 50.0 fL 10/28/2022 8:07 AM [facility] RDW-CV 13.5 11.2 - 14.8 % 10/28/2022 8:07 AM [facility] Platelet Count 182 150 - 400 10? 3 /uL 10/28/2022 8:07 AM [facility] MPV 10/28/2022 8:07 AM [facility] Comment:Unable to Report Immature Platelet Fraction 13.5(H) 1.1 - 6.2 % 10/28/2022 8:07 AM [facility] nRBC Absolute 0.00 0 10? 3 /uL 10/28/2022 8:07 AM [facility] nRBC Auto 0.0 0 /100 WBC 10/28/2022 8:07 AM [facility] Neutrophils % 52.1 35.0 - 70.0 % 10/28/2022 8:07 AM [facility] Lymphocytes % 34.1 20.0 - 43.0 % 10/28/2022 8:07 AM [facility] Monocytes % 9.6 5.0 - 13.0 % 10/28/2022 8:07 AM [facility] Eosinophils % 3.3 0.0 - 6.0 % 10/28/2022 8:07 AM [facility] Basophil % 0.4 0.0 - 2.0 % 10/28/2022 8:07 AM [facility] Neutrophils Absolute 3.95 1.60 - 7.00 10? 3 /uL 10/28/2022 8:07 AM [facility] Lymphocyte Absolute 2.59 1.10 - 3.90 10? 3 /uL 10/28/2022 8:07 AM [facility] Monocytes Absolute 0.73 0.26 - 1.07 10? 3 /uL 10/28/2022 8:07 AM [facility] Eosinophils Absolute 0.25 0.00 - 0.47 10? 3 /uL 10/28/2022 8:07 AM [facility] Basophils Absolute 0.03 0.00 - 0.08 10? 3 /uL 10/28/2022 8:07 AM [facility] Immature Granulocytes % 0.5 0.0 - 1.0 % 10/28/2022 8:07 AM [facility] Immature Granulocytes Absolute 0.04 10/28/2022 8:07 AM [facility] Blood BLOOD SPECIMEN / Unknown Lab Venipuncture / Unknown 10/28/2022 6:21 AM CDT 10/28/2022 7:11 AM CDT Petra Fuentes MD LAB - HEMATOLOGY ORD ERABLES [facility] [address] [place] [address], [facility] [phone] * (ABNORMAL) BASIC METABOLIC PANEL (CALCIUM TOTAL) (10/28/2022 6:21 AM CDT) BUN 16 7 - 26 mg/dL 10/28/2022 7:43 AM [facility] Creatinine 0.46(L) 0.71 - 1.16 mg/dL 10/28/2022 7:43 AM [facility] Sodium 139 136 - 145 mmol/L 10/28/2022 7:43 AM [facility] Potassium 3.6 3.5 - 4.5 mmol/L 10/28/2022 7:43 AM [facility] Chloride 104 98 - 107 mmol/L 10/28/2022 7:43 AM [facility] CO2 26 22 - 29 mmol/L 10/28/2022 7:43 AM [facility] Glucose 92 70 - 115 mg/dL 10/28/2022 7:43 AM [facility] Calcium 9.7 8.4 - 10.2 mg/dL 10/28/2022 7:43 AM [facility] Anion Gap 13 8 - 18 10/28/2022 7:43 AM [facility] BUN/Creatinine Ratio 35(H) 7 - 23 10/28/2022 7:43 AM [facility] Osmolality Calculated 289 270 - 300 mOsm/kg 10/28/2022 7:43 AM [facility] eGFR by CKD-EPI >90 >=90 mL/min/1.7 3 m2 10/28/2022 7:43 AM [facility] Blood BLOOD SPECIMEN / Unknown Lab Venipuncture / Unknown 10/28/2022 6:21 AM CDT 10/28/2022 7:12 AM T Petra Fuentes MD LAB - CHEMISTRY MARSHAL MEDEROS [facility] Organization Address City/State/ZIP Co de Phone Number [facility] [address] [place] [address], [facility] [phone] * GLUCOSE - POINT OF CARE (10/28/2022 5:43 AM CDT) Glucose WB/POC 101 70 - 115 mg/dL 10/28/2022 5:48 AM [facility] Specimen Type Cap Fingerstick 2022 5:48 AM [facility] Blood BLOOD SPECIMEN / Unknown 10/28/2022 5:43 AM CDT 10/28/2022 5:48 AM CDT Venessa Rosado DO LAB - POINT OF CARE ORDERABLES [address] [address], [place] [phone] * GLUCOSE - POINT OF CARE (10/28/2022 12:21 AM CDT) Glucose WB/POC 109 70 - 115 mg/dL 10/28/2022 12:30 AM CDT [facility] Specimen Type Cap Fingerstick 2022 12:30 AM CDT [facility] Blood BLOOD SPECIMEN / Unknown 10/28/2022 12:21 AM CDT 10/28/2022 12:30 AM CDT Venessa Rosado LAB - POINT OF CARE ORDERABLES Performing Organization Address City/[facility]/ZIP Co de Phone Number [address] [address], [place] [phone] * GLUCOSE - POINT OF CARE (10/27/2022 11:39 AM CDT) Glucose WB/POC 110 70 - 115 mg/dL 10/27/2022 11:41 AM CDT [facility] Specimen Type Cap Fingerstick 2022 11:41 AM CDT [facility] Blood BLOOD SPECIMEN / Unknown 10/27/2022 11:39 AM CDT 10/27/2022 11:41 AM CDT Venessa Rosado LAB - POINT OF CARE ORDERABLES [address] [address], [place] [phone] * GLUCOSE - POINT OF CARE (10/27/2022 6:11 AM CDT) Glucose WB/POC 103 70 - 115 mg/dL 10/27/2022 6:16 AM CDT [facility] Specimen Type Cap Fingerstick 2022 6:16 AM CDT [facility] Blood BLOOD SPECIMEN / Unknown 10/27/2022 6:11 AM CDT 10/27/2022 6:16 AM CDT Venessa Rosado DO LAB - POINT OF CARE ORDERABLES [address] [address], [place] [phone] * GLUCOSE - POINT OF CARE (10/27/2022 12:55 AM CDT) Glucose WB/POC 95 70 - 115 mg/dL 10/27/2022 12:59 AM CDT [facility] Specimen Type Cap Fingerstick 2022 12:59 AM CDT [facility] Blood BLOOD SPECIMEN / Unknown 10/27/2022 12:55 AM CDT 10/27/2022 12:59 AM CDT Venessa Rosado DO LAB - POINT OF CARE ORDERABLES [address] [address], [place] [phone] * GLUCOSE - POINT OF CARE (10/26/2022 9:08 PM CDT) Glucose WB/POC 109 70 - 115 mg/dL 10/26/2022 9:09 PM CDT [facility] Specimen Type Arterial 10/26/2022 9:09 PM CDT [facility] Blood BLOOD SPECIMEN / Unknown 10/26/2022 9:08 PM CDT 10/26/2022 9:09 PM CDT Venessa Rosado DO LAB - POINT OF CARE ORDERABLES [address] [address], [place] [phone] * GLUCOSE - POINT OF CARE (10/26/2022 4:13 PM CDT) Glucose WB/POC 113 70 - 115 mg/dL 10/26/2022 4:18 PM CDT [facility] Specimen Type Arterial 10/26/2022 4:18 PM CDT [facility] Blood BLOOD SPECIMEN / Unknown 10/26/2022 4:13 PM CDT 10/26/2022 4:18 PM CDT Venessa Rosado DO LAB - POINT OF CARE ORDERABLES [address] [address], [place] [phone] * PHOSPHORUS BLOOD (10/26/2022 8:30 AM CDT) Phosphorus 2.8 2.8 - 5.1 mg/dL 10/26/2022 9:29 AM CDT [facility] Blood BLOOD SPECIMEN / Unknown Lab Venipuncture / Unknown 10/26/2022 8:30 AM CDT 10/26/2022 8:58 AM CDT Petra Fuentes MD LAB - CHEMISTRY [facility] [address] [address], [place] [phone] * MAGNESIUM BLOOD (10/26/2022 8:30 AM CDT) Magnesium 1.8 1.6 - 2.6 mg/dL 10/26/2022 9:29 AM CDT [facility] Blood BLOOD SPECIMEN / Unknown Lab Venipuncture / Unknown 10/26/2022 8:30 AM CDT 10/26/2022 8:58 AM CDT Petra Fuentes MD LAB - CHEMISTRY [facility] [address] [address], [place] [phone] * (ABNORMAL) CBC W AUTO DIFFERENTIAL (10/26/2022 8:30 AM [facility]) WBC 8.1 3.5 - 10.5 10? 3 /uL 10/26/2022 9:11 AM [facility] RBC 4.21(L) 4.30 - 5.70 10? 6 /uL 10/26/2022 9:11 AM [facility] Hemoglobin 12.9 12.0 - 17.6 g/dL 10/26/2022 9:11 AM [facility] Hematocrit 39.0 35.2 - 51.7 % 10/26/2022 9:11 AM [facility] MCV 92.6 80.7 - 98.3 fL 10/26/2022 9:11 AM [facility] MCH 30.6 26.7 - 34.0 pg 10/26/2022 9:11 AM [facility] MCHC 33.1 30.8 - 35.9 g/dL 10/26/2022 9:11 AM [facility] RDW-SD 45.7 36.0 - 50.0 fL 10/26/2022 9:11 AM [facility] RDW-CV 13.4 11.2 - 14.8 % 10/26/2022 9:11 AM [facility] Platelet Count 225 150 - 400 10? 3 /uL 10/26/2022 9:11 AM [facility] MPV 12.5 9.4 - 12.9 fL 10/26/2022 9:11 AM [facility] nRBC Absolute 0.00 0 10? 3 /uL 10/26/2022 9:11 AM [facility] nRBC Auto 0.0 0 /100 WBC 10/26/2022 9:11 AM [facility] Neutrophils % 57.3 35.0 - 70.0 % 10/26/2022 9:11 AM [facility] Lymphocytes % 30.5 20.0 - 43.0 % 10/26/2022 9:11 AM [facility] Monocytes % 8.6 5.0 - 13.0 % 10/26/2022 9:11 AM [facility] Eosinophils % 3.0 0.0 - 6.0 % 10/26/2022 9:11 AM [facility] Basophil % 0.2 0.0 - 2.0 % 10/26/2022 9:11 AM [facility] Neutrophils Absolute 4.62 1.60 - 7.00 10? 3 /uL 10/26/2022 9:11 AM [facility] Lymphocyte Absolute 2.46 1.10 - 3.90 10? 3 /uL 10/26/2022 9:11 AM [facility] Monocytes Absolute 0.69 0.26 - 1.07 10? 3 /uL 10/26/2022 9:11 AM [facility] Eosinophils Absolute 0.24 0.00 - 0.47 10? 3 /uL 10/26/2022 9:11 AM [facility] Basophils Absolute 0.02 0.00 - 0.08 10? 3 /uL 10/26/2022 9:11 AM [facility] Immature Granulocytes % 0.4 0.0 - 1.0 % 10/26/2022 9:11 AM [facility] Immature Granulocytes Absolute 0.03 10/26/2022 9:11 AM [facility] Blood BLOOD SPECIMEN / Unknown Lab Venipuncture / Unknown 10/26/2022 8:30 AM CDT 10/26/2022 8:57 AM CDT Petra Fuentes MD LAB - HEMATOLOGY ORD ERABLES Performing Organization Address City/State/[facility] Co de Phone Number [address] [address], [facility] [phone] * (ABNORMAL) BASIC METABOLIC PANEL (CALCIUM TOTAL) (10/26/2022 8:30 AM CDT) BUN 15 7 - 26 mg/dL 10/26/2022 9:29 AM [facility] Creatinine 0.43(L) 0.71 - 1.16 mg/dL 10/26/2022 9:29 AM [facility] Sodium 141 136 - 145 mmol/L 10/26/2022 9:29 AM [facility] Potassium 3.5 3.5 - 4.5 mmol/L 10/26/2022 9:29 AM [facility] Chloride 102 98 - 107 mmol/L 10/26/2022 9:29 AM [facility] CO2 26 22 - 29 mmol/L 10/26/2022 9:29 AM [facility] Glucose 99 70 - 115 mg/dL 10/26/2022 9:29 AM [facility] Calcium 9.9 8.4 - 10.2 mg/dL 10/26/2022 9:29 AM [facility] Anion Gap 17 8 - 18 10/26/2022 9:29 AM [facility] BUN/Creatinine Ratio 35(H) 7 - 23 10/26/2022 9:29 AM [facility] Osmolality Calculated 293 270 - 300 mOsm/kg 10/26/2022 9:29 AM [facility] eGFR by CKD-EPI >90 >=90 mL/min/1.7 3 m2 10/26/2022 9:29 AM [facility] Blood BLOOD SPECIMEN / Unknown Lab Venipuncture / Unknown 10/26/2022 8:30 AM CDT 10/26/2022 8:58 AM CDT Petra Fuentes MD LAB - CHEMISTRY MARSHAL MEDEROS Performing Organization Address City/[facility]/ZIP Co de Phone Number [facility] [address] [place] [address], [facility] [phone] * GLUCOSE - POINT OF CARE (10/26/2022 6:20 AM CDT) Glucose WB/POC 100 70 - 115 mg/dL 10/26/2022 6:25 AM [facility] Specimen Type Cap Fingerstick 2022 6:25 AM [facility] Blood BLOOD SPECIMEN / Unknown 10/26/2022 6:20 AM CDT 10/26/2022 6:25 AM CDT Venessa Rosado DO LAB - POINT OF CARE ORDERABLES [address] [address], [place] [phone] * GLUCOSE - POINT OF CARE (10/26/2022 12:30 AM CDT) Glucose WB/POC 108 70 - 115 mg/dL 10/26/2022 12:31 AM CDT [facility] Specimen Type Cap Fingerstick 2022 12:31 AM CDT [facility] Blood BLOOD SPECIMEN / Unknown 10/26/2022 12:30 AM CDT 10/26/2022 12:31 AM CDT Venessa Rosado LAB - POINT OF CARE ORDERABLES Performing Organization Address [facility]/ZIP Co de Phone Number [address] [address], [place] [phone] * (ABNORMAL) GLUCOSE - POINT OF CARE (10/25/2022 5:16 PM CDT) Glucose WB/POC 118(H) 70 - 115 mg/dL 10/25/2022 5:18 PM CDT [facility] Specimen Type Cap Fingerstick 2022 5:18 PM CDT [facility] Blood BLOOD SPECIMEN / Unknown 10/25/2022 5:16 PM CDT 10/25/2022 5:18 PM CDT Venessa Rosado LAB - POINT OF CARE ORDERABLES [address] [address], [place] [phone] * GLUCOSE - POINT OF CARE (10/25/2022 11:13 AM CDT) Glucose WB/POC 104 70 - 115 mg/dL 10/25/2022 5:18 PM CDT [facility] Specimen Type Cap Fingerstick 2022 5:18 PM CDT [facility] Blood BLOOD SPECIMEN / Unknown 10/25/2022 11:13 AM CDT 10/25/2022 5:18 PM CDT Venessa Rosado DO LAB - POINT OF CARE ORDERABLES [facility] [address] [place] [address], [place] [phone] * GLUCOSE - POINT OF CARE (10/25/2022 6:03 AM CDT) Glucose WB/POC 111 70 - 115 mg/dL 10/25/2022 6:05 AM CDT [facility] Specimen Type Cap Fingerstick 2022 6:05 AM CDT [facility] Blood BLOOD SPECIMEN / Unknown 10/25/2022 6:03 AM CDT 10/25/2022 6:05 AM CDT Ck Mccurdy MD LAB - POINT OF CARE ORDERABLES Performing Organization Address City/[facility]/ZIP Co de Phone Number [address] [address], [place] [phone] * GLUCOSE - POINT OF CARE (10/25/2022 12:18 AM CDT) Glucose WB/POC 108 70 - 115 mg/dL 10/25/2022 12:19 AM CDT [facility] Specimen Type Cap Fingerstick 2022 12:19 AM CDT [facility] Blood BLOOD SPECIMEN / Unknown 10/25/2022 12:18 AM CDT 10/25/2022 12:19 AM CDT Ck Mccurdy MD LAB - POINT OF CARE ORDERABLES [address] [address], [place] [phone] * GLUCOSE - POINT OF CARE (10/24/2022 6:09 PM CDT) Glucose WB/POC 103 70 - 115 mg/dL 10/24/2022 6:13 PM CDT [facility] Specimen Type Cap Fingerstick 2022 6:13 PM CDT [facility] Blood BLOOD SPECIMEN / Unknown 10/24/2022 6:09 PM CDT 10/24/2022 6:13 PM CDT Ck Mccurdy MD LAB - POINT OF CARE ORDERABLES Performing Organization Address City/[facility]/ZIP Co de Phone Number [address] [address], [place] [phone] * (ABNORMAL) GLUCOSE - POINT OF CARE (10/24/2022 12:22 PM CDT) Glucose WB/POC 129(H) 70 - 115 mg/dL 10/24/2022 12:24 PM CDT [facility] Specimen Type Cap Fingerstick 2022 12:24 PM CDT [facility] Blood BLOOD SPECIMEN / Unknown 10/24/2022 12:22 PM CDT 10/24/2022 12:24 PM CDT Ck Mccurdy MD LAB - POINT OF CARE ORDERABLES Performing Organization Address [facility]/ZIP Co de Phone Number [address] [address], [place] [phone] * (ABNORMAL) PHOSPHORUS BLOOD (10/24/2022 4:26 AM CDT) Phosphorus 2.6(L) 2.8 - 5.1 mg/dL 10/24/2022 5:21 AM CDT [facility] Blood BLOOD SPECIMEN / Unknown Lab Venipuncture / Unknown 10/24/2022 4:26 AM CDT 10/24/2022 4:45 AM CDT Petra Fuentes MD LAB - CHEMISTRY MARSHAL MEDEROS Performing Organization Address City/[facility]/ZIP Co de Phone Number [address] [address], [place] [phone] * MAGNESIUM BLOOD (10/24/2022 4:26 AM CDT) Magnesium 1.7 1.6 - 2.6 mg/dL 10/24/2022 5:21 AM [facility] Blood BLOOD SPECIMEN / Unknown Lab Venipuncture / Unknown 10/24/2022 4:26 AM CDT 10/24/2022 4:45 AM CDT Petra Fuentes MD LAB - CHEMISTRY MARSHAL MEDEROS [facility] Organization Address City/State/ZIP Co de Phone Number [facility] [address] [place] [address], [facility] [phone] * CBC W AUTO DIFFERENTIAL (10/24/2022 4:26 AM CDT) WBC 7.2 3.5 - 10.5 10? 3 /uL 10/24/2022 5:21 AM [facility] RBC 4.31 4.30 - 5.70 10? 6 /uL 10/24/2022 5:21 AM [facility] Hemoglobin 13.1 12.0 - 17.6 g/dL 10/24/2022 5:21 AM [facility] Hematocrit 39.9 35.2 - 51.7 % 10/24/2022 5:21 AM [facility] MCV 92.6 80.7 - 98.3 fL 10/24/2022 5:21 AM [facility] MCH 30.4 26.7 - 34.0 pg 10/24/2022 5:21 AM [facility] MCHC 32.8 30.8 - 35.9 g/dL 10/24/2022 5:21 AM [facility] RDW-SD 45.5 36.0 - 50.0 fL 10/24/2022 5:21 AM [facility] RDW-CV 13.3 11.2 - 14.8 % 10/24/2022 5:21 AM [facility] Platelet Count 248 150 - 400 10? 3 /uL 10/24/2022 5:21 AM [facility] MPV 12.4 9.4 - 12.9 fL 10/24/2022 5:21 AM [facility] nRBC Absolute 0.00 0 10? 3 /uL 10/24/2022 5:21 AM [facility] nRBC Auto 0.0 0 /100 WBC 10/24/2022 5:21 AM [facility] Neutrophils % 57.6 35.0 - 70.0 % 10/24/2022 5:21 AM [facility] Lymphocytes % 29.4 20.0 - 43.0 % 10/24/2022 5:21 AM [facility] Monocytes % 8.6 5.0 - 13.0 % 10/24/2022 5:21 AM [facility] Eosinophils % 4.0 0.0 - 6.0 % 10/24/2022 5:21 AM [facility] Basophil % 0.3 0.0 - 2.0 % 10/24/2022 5:21 AM [facility] Neutrophils Absolute 4.16 1.60 - 7.00 10? 3 /uL 10/24/2022 5:21 AM [facility] Lymphocyte Absolute 2.12 1.10 - 3.90 10? 3 /uL 10/24/2022 5:21 AM [facility] Monocytes Absolute 0.62 0.26 - 1.07 10? 3 /uL 10/24/2022 5:21 AM [facility] Eosinophils Absolute 0.29 0.00 - 0.47 10? 3 /uL 10/24/2022 5:21 AM [facility] Basophils Absolute 0.02 0.00 - 0.08 10? 3 /uL 10/24/2022 5:21 AM [facility] Immature Granulocytes % 0.1 0.0 - 1.0 % 10/24/2022 5:21 AM [facility] Immature Granulocytes Absolute 0.01 10/24/2022 5:21 AM [facility] Blood BLOOD SPECIMEN / Unknown Lab Venipuncture / Unknown 10/24/2022 4:26 AM CDT 10/24/2022 4:45 AM T Petra Fuentes MD LAB - HEMATOLOGY ORD ERABLES Performing Organization Address City/[facility]/ZIP Co de Phone Number [facility] [address] [place] [address], [facility] [phone] * (ABNORMAL) BASIC METABOLIC PANEL (CALCIUM TOTAL) (10/24/2022 4:26 AM CDT) BUN 15 7 - 26 mg/dL 10/24/2022 5:21 AM [facility] Creatinine 0.45(L) 0.71 - 1.16 mg/dL 10/24/2022 5:21 AM [facility] Sodium 139 136 - 145 mmol/L 10/24/2022 5:21 AM [facility] Potassium 3.8 3.5 - 4.5 mmol/L 10/24/2022 5:21 AM [facility] Chloride 103 98 - 107 mmol/L 10/24/2022 5:21 AM [facility] CO2 27 22 - 29 mmol/L 10/24/2022 5:21 AM [facility] Glucose 104 70 - 115 mg/dL 10/24/2022 5:21 AM [facility] Calcium 10.2 8.4 - 10.2 mg/dL 10/24/2022 5:21 AM [facility] Anion Gap 13 8 - 18 10/24/2022 5:21 AM [facility] BUN/Creatinine Ratio 33(H) 7 - 23 10/24/2022 5:21 AM [facility] Osmolality Calculated 289 270 - 300 mOsm/kg 10/24/2022 5:21 AM [facility] eGFR by CKD-EPI >90 >=90 mL/min/1.7 3 m2 10/24/2022 5:21 AM [facility] Blood BLOOD SPECIMEN / Unknown Lab Venipuncture / Unknown 10/24/2022 4:26 AM CDT 10/24/2022 4:45 AM T Petra Fuentes MD LAB - CHEMISTRY ORDE RABSHILPA [facility] [address] [place] [address], [facility] [phone] * GLUCOSE - POINT OF CARE (10/22/2022 5:38 PM CDT) Glucose WB/POC 112 70 - 115 mg/dL 10/22/2022 6:07 PM CDT [facility] Specimen Type Cap Fingerstick 2022 6:07 PM CDT [facility] Blood BLOOD SPECIMEN / Unknown 10/22/2022 5:38 PM CDT 10/22/2022 6:07 PM CDT Ck Mccurdy MD LAB - POINT OF CARE ORDERABLES [address] [address], [facility] [phone] * (ABNORMAL) GLUCOSE - POINT OF CARE (10/22/2022 11:43 AM CDT) Glucose WB/POC 129(H) 70 - 115 mg/dL 10/22/2022 11:44 AM CDT [facility] Specimen Type Cap Fingerstick 2022 11:44 AM CDT [facility] Blood BLOOD SPECIMEN / Unknown 10/22/2022 11:43 AM CDT 10/22/2022 11:44 AM CDT Ck Mccurdy MD LAB - POINT OF CARE ORDERABLES [address] [address], [place] [phone] * GLUCOSE - POINT OF CARE (10/22/2022 8:01 AM CDT) Glucose WB/POC 106 70 - 115 mg/dL 10/22/2022 8:08 AM CDT [facility] Specimen Type Cap Fingerstick 2022 8:08 AM CDT [facility] Blood BLOOD SPECIMEN / Unknown 10/22/2022 8:01 AM CDT 10/22/2022 8:08 AM CDT Ck Mccurdy MD LAB - POINT OF CARE ORDERABLES [address] [address], [place] [phone] * GLUCOSE - POINT OF CARE (10/22/2022 6:18 AM CDT) Glucose WB/POC 87 70 - 115 mg/dL 10/22/2022 6:19 AM CDT [facility] Specimen Type Cap Fingerstick 2022 6:19 AM CDT [facility] Blood BLOOD SPECIMEN / Unknown 10/22/2022 6:18 AM CDT 10/22/2022 6:18 AM CDT Ck Mccurdy MD LAB - POINT OF CARE ORDERABLES Performing Organization Address City/[facility]/ZIP Co de Phone Number [address] [address], [place] [phone] * PHOSPHORUS BLOOD (10/22/2022 4:31 AM CDT) Phosphorus 3.3 2.8 - 5.1 mg/dL 10/22/2022 5:41 AM CDT [facility] Blood BLOOD SPECIMEN / Unknown Lab Venipuncture / Unknown 10/22/2022 4:31 AM CDT 10/22/2022 5:11 AM CDT Petra Fuentes MD LAB - CHEMISTRY MARSHAL MEDEROS [address] [address], [place] [phone] * MAGNESIUM BLOOD (10/22/2022 4:31 AM CDT) Magnesium 1.7 1.6 - 2.6 mg/dL 10/22/2022 5:41 AM CDT [facility] Blood BLOOD SPECIMEN / Unknown Lab Venipuncture / Unknown 10/22/2022 4:31 AM CDT 10/22/2022 5:11 AM CDT Petra Fuentes MD LAB - CHEMISTRY MARSHAL MEDEROS [facility] [address] [place] [address], [facility] [phone] * (ABNORMAL) CBC W AUTO DIFFERENTIAL (10/22/2022 4:31 AM CDT) WBC 6.5 3.5 - 10.5 10? 3 /uL 10/22/2022 5:21 AM T [facility] RBC 3.92(L) 4.30 - 5.70 10? 6 /uL 10/22/2022 5:21 AM [facility] Hemoglobin 12.1 12.0 - 17.6 g/dL 10/22/2022 5:21 AM [facility] Hematocrit 36.9 35.2 - 51.7 % 10/22/2022 5:21 AM [facility] MCV 94.1 80.7 - 98.3 fL 10/22/2022 5:21 AM [facility] MCH 30.9 26.7 - 34.0 pg 10/22/2022 5:21 AM [facility] MCHC 32.8 30.8 - 35.9 g/dL 10/22/2022 5:21 AM [facility] RDW-SD 45.6 36.0 - 50.0 fL 10/22/2022 5:21 AM [facility] RDW-CV 13.2 11.2 - 14.8 % 10/22/2022 5:21 AM [facility] Platelet Count 233 150 - 400 10? 3 /uL 10/22/2022 5:21 AM [facility] MPV 12.4 9.4 - 12.9 fL 10/22/2022 5:21 AM [facility] nRBC Absolute 0.00 0 10? 3 /uL 10/22/2022 5:21 AM [facility] nRBC Auto 0.0 0 /100 WBC 10/22/2022 5:21 AM [facility] Neutrophils % 48.1 35.0 - 70.0 % 10/22/2022 5:21 AM T [facility] Lymphocytes % 35.9 20.0 - 43.0 % 10/22/2022 5:21 AM [facility] Monocytes % 10.8 5.0 - 13.0 % 10/22/2022 5:21 AM T [facility] Eosinophils % 4.5 0.0 - 6.0 % 10/22/2022 5:21 AM T [facility] Basophil % 0.5 0.0 - 2.0 % 10/22/2022 5:21 AM [facility] Neutrophils Absolute 3.14 1.60 - 7.00 10? 3 /uL 10/22/2022 5:21 AM [facility] Lymphocyte Absolute 2.34 1.10 - 3.90 10? 3 /uL 10/22/2022 5:21 AM T [facility] Monocytes Absolute 0.70 0.26 - 1.07 10? 3 /uL 10/22/2022 5:21 AM [facility] Eosinophils Absolute 0.29 0.00 - 0.47 10? 3 /uL 10/22/2022 5:21 AM T [facility] Basophils Absolute 0.03 0.00 - 0.08 10? 3 /uL 10/22/2022 5:21 AM [facility] Immature Granulocytes % 0.2 0.0 - 1.0 % 10/22/2022 5:21 AM [facility] Immature Granulocytes Absolute 0.01 10/22/2022 5:21 AM [facility] Blood BLOOD SPECIMEN / Unknown Lab Venipuncture / Unknown 10/22/2022 4:31 AM CDT 10/22/2022 5:11 AM CDT Petra Fuentes MD LAB - HEMATOLOGY ORD ERABLES [facility] [address] [place] [address], [facility] [phone] * (ABNORMAL) BASIC METABOLIC PANEL (CALCIUM TOTAL) (10/22/2022 4:31 AM CDT) BUN 14 7 - 26 mg/dL 10/22/2022 5:41 AM [facility] Creatinine 0.52(L) 0.71 - 1.16 mg/dL 10/22/2022 5:41 AM [facility] Sodium 140 136 - 145 mmol/L 10/22/2022 5:41 AM [facility] Potassium 3.8 3.5 - 4.5 mmol/L 10/22/2022 5:41 AM [facility] Chloride 103 98 - 107 mmol/L 10/22/2022 5:41 AM [facility] CO2 25 22 - 29 mmol/L 10/22/2022 5:41 AM [facility] Glucose 103 70 - 115 mg/dL 10/22/2022 5:41 AM [facility] Calcium 9.9 8.4 - 10.2 mg/dL 10/22/2022 5:41 AM [facility] Anion Gap 16 8 - 18 10/22/2022 5:41 AM [facility] BUN/Creatinine Ratio 27(H) 7 - 23 10/22/2022 5:41 AM [facility] Osmolality Calculated 291 270 - 300 mOsm/kg 10/22/2022 5:41 AM [facility] eGFR by CKD-EPI >90 >=90 mL/min/1.7 3 m2 10/22/2022 5:41 AM [facility] Blood BLOOD SPECIMEN / Unknown Lab Venipuncture / Unknown 10/22/2022 4:31 AM CDT 10/22/2022 5:11 AM T Petra Fuentes MD LAB - CHEMISTRY MARSHAL MEDEROS [facility] Organization Address City/State/ZIP Co de Phone Number [facility] [address] [place] [address], [facility] [phone] * GLUCOSE - POINT OF CARE (10/22/2022 12:22 AM CDT) Glucose WB/POC 106 70 - 115 mg/dL 10/22/2022 12:23 AM [facility] Specimen Type Cap Fingerstick 2022 12:23 AM CDT [facility] Blood BLOOD SPECIMEN / Unknown 10/22/2022 12:22 AM CDT 10/22/2022 12:23 AM CDT Ck Mccurdy MD LAB - POINT OF CARE ORDERABLES Performing Organization Address City/[facility]/ZIP Co de Phone Number [address] [address], [facility] [phone] * SARS-COV-2 (COVID-19) RAPID (10/21/2022 5:37 PM CDT) COVID-19 PCR Not detected Not detected 10/22/19 6:20 PM CDT [facility] Microbiology SPECIMEN FROM NASOPHARYNGEAL STRUCTURE / Unknown Collection / Unknown 10/21/2022 5:37 PM CDT 10/21/2022 5:44 PM CDT Narrative [facility] - 10/21/2022 6:20 PM CDT The [employer] Xpert Xpress SARS-COV-2 has been authorized by [...] Mccurdy MD LAB - MICROBIO LOGY ORDERABLES Performing Organization Address City/[facility]/ZIP Co de Phone Number [facility] [address] [place] [address], [place] [phone] * GLUCOSE - POINT OF CARE (10/21/2022 5:03 AM CDT) Glucose WB/POC 103 70 - 115 mg/dL 10/21/2022 5:07 AM CDT [facility] Specimen Type Cap Fingerstick 2022 5:07 AM CDT [facility] Blood BLOOD SPECIMEN / Unknown 10/21/2022 5:03 AM CDT 10/21/2022 5:07 AM CDT Ck Mccurdy MD LAB - POINT OF CARE ORDERABLES [address] [address], [place] [phone] * GLUCOSE - POINT OF CARE (10/21/2022 1:45 AM CDT) Glucose WB/POC 112 70 - 115 mg/dL 10/21/2022 1:50 AM CDT [facility] Specimen Type Cap Fingerstick 2022 1:50 AM CDT [facility] Blood BLOOD SPECIMEN / Unknown 10/21/2022 1:45 AM CDT 10/21/2022 1:49 AM CDT Ck Mccurdy MD LAB - POINT OF CARE ORDERABLES [facility] [address] [place] [address], [place] [phone] * (ABNORMAL) GLUCOSE - POINT OF CARE (10/20/2022 6:32 PM CDT) Glucose WB/POC 119(H) 70 - 115 mg/dL 10/20/2022 6:33 PM CDT [facility] Specimen Type Cap Fingerstick 2022 6:33 PM CDT [facility] Blood BLOOD SPECIMEN / Unknown 10/20/2022 6:32 PM CDT 10/20/2022 6:33 PM CDT Ck Mccurdy MD LAB - POINT OF CARE ORDERABLES [address] [address], [place] [phone] * (ABNORMAL) GLUCOSE - POINT OF CARE (10/20/2022 2:03 PM CDT) Glucose WB/POC 117(H) 70 - 115 mg/dL 10/20/2022 2:04 PM CDT [facility] Specimen Type Cap Fingerstick 2022 2:04 PM CDT [facility] Blood BLOOD SPECIMEN / Unknown 10/20/2022 2:03 PM CDT 10/20/2022 2:04 PM CDT Ck Mccurdy MD LAB - POINT OF CARE ORDERABLES Performing Organization Address City/[facility]/ZIP Co de Phone Number [address] [address], [place] [phone] * GLUCOSE - POINT OF CARE (10/20/2022 6:47 AM CDT) Glucose WB/POC 92 70 - 115 mg/dL 10/20/2022 7:10 AM CDT [facility] Specimen Type Cap Fingerstick 2022 7:10 AM CDT [facility] Blood BLOOD SPECIMEN / Unknown 10/20/2022 6:47 AM CDT 10/20/2022 7:10 AM CDT Ck Mccurdy MD LAB - POINT OF CARE ORDERABLES [address] [address], [place] [phone] * (ABNORMAL) DIFFERENTIAL MANUAL (10/20/2022 4:31 AM CDT) WBC (corrected for NRBC) 6.6 10? 3 /uL 10/20/2022 8:14 AM CDT [facility] Total Cell Count 100 10/21/19 8:14 AM [facility] Neutrophils Absolute Manual 3.23 1.60 - 7.00 10? 3 /uL 10/20/2022 8:14 AM [facility] Comment:(BANDS+SEGS) x WBC = NEUT # (ANC) Lymphocyte Absolute Manual 1.91 1.10 - 3.90 10? 3 /uL 10/20/2022 8:14 AM [facility] Monocytes Absolute Manual 1.19(H) 0.26 - 1.07 10? 3 /uL 10/20/2022 8:14 AM [facility] Eosinophils Absolute Manual 0.13 0.00 - 0.47 10? 3 /uL 10/20/2022 8:14 AM [facility] Neutrophil % Manual 49 35 - 70 % 10/20/2022 8:14 AM [facility] Lymphocyte % Manual 29 20 - 43 % 10/20/2022 8:14 AM [facility] Monocytes % Manual 18(H) 5 - 13 % 10/20/2022 8:14 AM [facility] Eosinophils % Manual 2 0 - 6 % 10/20/2022 8:14 AM [facility] Atypical Lymphocyte % Manual 2(H) 0 % 10/20/2022 8:14 AM [facility] Platelet Estimate Adequate Adequate 10/20/2022 8:14 AM [facility] Polychromasia Rare(A) None 10/20/2022 8:14 AM [facility] Ovalocytes Occasional( A) None 10/20/2022 8:14 AM [facility] Minden Cells Few(A) None 10/20/2022 8:14 AM [facility] Tear Drop Cells Rare(A) None 8:14 AM [facility] Blood BLOOD SPECIMEN / Unknown Lab Venipuncture / Unknown 10/20/2022 4:31 AM CDT 10/20/2022 5:17 AM T Petra Fuentes MD LAB - HEMATOLOGY ORD ERABLES [address] [address], [place] [phone] * PHOSPHORUS BLOOD (10/20/2022 4:31 AM CDT) Phosphorus 3.2 2.8 - 5.1 mg/dL 10/20/2022 5:50 AM CDT [facility] Blood BLOOD SPECIMEN / Unknown Lab Venipuncture / Unknown 10/20/2022 4:31 AM CDT 10/20/2022 5:17 AM CDT Petra Fuentes MD LAB - CHEMISTRY MARSHAL MEDEROS [address] [address], [place] [phone] * MAGNESIUM BLOOD (10/20/2022 4:31 AM CDT) Pathologist [facility] Magnesium 1.9 1.6 - 2.6 mg/dL 10/20/2022 5:50 AM CDT [facility] Blood BLOOD SPECIMEN / Unknown Lab Venipuncture / Unknown 10/20/2022 4:31 AM CDT 10/20/2022 5:17 AM CDT Petra Fuentes MD LAB - CHEMISTRY MARSHAL MEDEROS [address] [address], [place] [phone] * (ABNORMAL) CBC W AUTO DIFFERENTIAL (10/20/2022 4:31 AM CDT) WBC 6.6 3.5 - 10.5 10? 3 /uL 10/20/2022 5:42 AM CDT [facility] RBC 3.89(L) 4.30 - 5.70 10? 6 /uL 10/20/2022 5:42 AM CDT [facility] Hemoglobin 11.9(L) 12.0 - 17.6 g/dL 10/20/2022 5:42 AM CDT [facility] Hematocrit 36.0 35.2 - 51.7 % 10/20/2022 5:42 AM [facility] MCV 92.5 80.7 - 98.3 fL 10/20/2022 5:42 AM [facility] MCH 30.6 26.7 - 34.0 pg 10/20/2022 5:42 AM [facility] MCHC 33.1 30.8 - 35.9 g/dL 10/20/2022 5:42 AM [facility] RDW-SD 45.9 36.0 - 50.0 fL 10/20/2022 5:42 AM [facility] RDW-CV 13.5 11.2 - 14.8 % 10/20/2022 5:42 AM [facility] Platelet Count 221 150 - 400 10? 3 /uL 10/20/2022 5:42 AM [facility] MPV 12.8 9.4 - 12.9 fL 10/20/2022 5:42 AM [facility] nRBC Absolute 0.00 0 10? 3 /uL 10/20/2022 5:42 AM [facility] nRBC Auto 0.0 0 /100 WBC 10/20/2022 5:42 AM [facility] Blood BLOOD SPECIMEN / Unknown Lab Venipuncture / Unknown 10/20/2022 4:31 AM CDT 10/20/2022 5:17 AM CDT Petra Fuentes MD LAB - HEMATOLOGY ORD ERABLES [facility] [address] [place] [id number], [facility] [phone] * (ABNORMAL) BASIC METABOLIC PANEL (CALCIUM TOTAL) (10/20/2022 4:31 AM CDT) BUN 21 7 - 26 mg/dL 10/20/2022 5:49 AM [facility] Creatinine 0.46(L) 0.71 - 1.16 mg/dL 10/20/2022 5:49 AM [facility] Sodium 138 136 - 145 mmol/L 10/20/2022 5:49 AM [facility] Potassium 4.1 3.5 - 4.5 mmol/L 10/20/2022 5:49 AM [facility] Chloride 101 98 - 107 mmol/L 10/20/2022 5:49 AM [facility] CO2 27 22 - 29 mmol/L 10/20/2022 5:49 AM [facility] Glucose 101 70 - 115 mg/dL 10/20/2022 5:49 AM [facility] Calcium 10.5(H) 8.4 - 10.2 mg/dL 10/20/2022 5:49 AM [facility] Anion Gap 14 8 - 18 10/20/2022 5:49 AM [facility] BUN/Creatinine Ratio 46(H) 7 - 23 10/20/2022 5:49 AM [facility] Osmolality Calculated 289 270 - 300 mOsm/kg 10/20/2022 5:49 AM [facility] eGFR by CKD-EPI >90 >=90 mL/min/1.7 3 m2 10/20/2022 5:49 AM [facility] Blood BLOOD SPECIMEN / Unknown Lab Venipuncture / Unknown 10/20/2022 4:31 AM CDT 10/20/2022 5:17 AM CDT Petra Fuentes MD LAB - CHEMISTRY [facility] Performing Organization Address City/[facility]/ZIP Co de Phone Number [facility] [address] [place] [address], [facility] [phone] * (ABNORMAL) GLUCOSE - POINT OF CARE (10/19/2022 11:15 PM CDT) Glucose WB/POC 122(H) 70 - 115 mg/dL 10/19/2022 11:22 PM T [facility] Specimen Type Cap Fingerstick 2022 11:22 PM T [facility] Blood BLOOD SPECIMEN / Unknown 10/19/2022 11:15 PM CDT 10/19/2022 11:22 PM CDT Ck Mccurdy MD LAB - POINT OF CARE ORDERABLES [facility] [address] [place] [id number], [place] [phone] * GLUCOSE - POINT OF CARE (10/19/2022 11:41 AM CDT) Glucose WB/POC 111 70 - 115 mg/dL 10/19/2022 11:42 AM CDT [facility] Specimen Type Cap Fingerstick 2022 11:42 AM CDT [facility] Blood BLOOD SPECIMEN / Unknown 10/19/2022 11:41 AM CDT 10/19/2022 11:42 AM CDT Ck Mccurdy MD LAB - POINT OF CARE ORDERABLES Performing Organization Address City/[facility]/ZIP Co de Phone Number [address] [address], [place] [phone] * (ABNORMAL) GLUCOSE - POINT OF CARE (10/19/2022 6:12 AM CDT) Glucose WB/POC 118(H) 70 - 115 mg/dL 10/19/2022 6:13 AM CDT [facility] Specimen Type Cap Fingerstick 2022 6:13 AM CDT [facility] Blood BLOOD SPECIMEN / Unknown 10/19/2022 6:12 AM CDT 10/19/2022 6:13 AM CDT Ck Mccurdy MD LAB - POINT OF CARE ORDERABLES [address] [address], [place] [phone] * (ABNORMAL) GLUCOSE - POINT OF CARE (10/19/2022 12:38 AM CDT) Glucose WB/POC 137(H) 70 - 115 mg/dL 10/19/2022 12:38 AM CDT [facility] Specimen Type Cap Fingerstick 2022 12:38 AM CDT [facility] Blood BLOOD SPECIMEN / Unknown 10/19/2022 12:38 AM CDT 10/19/2022 12:38 AM CDT Ck Mccurdy MD LAB - POINT OF CARE ORDERABLES [address] [address], [place] [phone] * GLUCOSE - POINT OF CARE (10/18/2022 6:19 PM CDT) Glucose WB/POC 114 70 - 115 mg/dL 10/18/2022 6:21 PM CDT [facility] Specimen Type Cap Fingerstick 2022 6:21 PM CDT [facility] Blood BLOOD SPECIMEN / Unknown 10/18/2022 6:19 PM CDT 10/18/2022 6:21 PM CDT Ck Mccurdy MD LAB - POINT OF CARE ORDERABLES Performing Organization Address City/[facility]/ZIP Co de Phone Number [address] [address], [place] [phone] * (ABNORMAL) GLUCOSE - POINT OF CARE (10/18/2022 12:10 PM CDT) Glucose WB/POC 138(H) 70 - 115 mg/dL 10/18/2022 5:08 PM CDT [facility] Specimen Type Cap Fingerstick 2022 5:08 PM CDT [facility] Blood BLOOD SPECIMEN / Unknown 10/18/2022 12:10 PM CDT 10/18/2022 5:08 PM CDT Ck Mccurdy MD LAB - POINT OF CARE ORDERABLES [address] [address], [place] [phone] * GLUCOSE - POINT OF CARE (10/18/2022 6:13 AM CDT) Glucose WB/POC 108 70 - 115 mg/dL 10/18/2022 6:17 AM CDT [facility] Specimen Type Cap Fingerstick 2022 6:17 AM CDT [facility] Blood BLOOD SPECIMEN / Unknown 10/18/2022 6:13 AM CDT 10/18/2022 6:17 AM CDT Ck Mccurdy MD LAB - POINT OF CARE ORDERABLES [address] [address], [place] [phone] * PHOSPHORUS BLOOD (10/18/2022 4:34 AM CDT) Phosphorus 3.2 2.8 - 5.1 mg/dL 10/18/2022 5:46 AM CDT [facility] Blood BLOOD SPECIMEN / Unknown Lab Venipuncture / Unknown 10/18/2022 4:34 AM CDT 10/18/2022 5:12 AM CDT Petra Fuentes MD LAB - CHEMISTRY MARSHAL MEDEROS Performing Organization Address [facility]/ZIP Co de Phone Number [address] [address], [place] [phone] * MAGNESIUM BLOOD (10/18/2022 4:34 AM CDT) Magnesium 1.8 1.6 - 2.6 mg/dL 10/18/2022 5:46 AM CDT [facility] Blood BLOOD SPECIMEN / Unknown Lab Venipuncture / Unknown 10/18/2022 4:34 AM CDT 10/18/2022 5:12 AM CDT Petra Fuentes MD LAB - CHEMISTRY MARSHAL MEDEROS Performing Organization Address City/[facility]/ZIP Co de Phone Number [address] [address], [place] [phone] * (ABNORMAL) CBC W AUTO DIFFERENTIAL (10/18/2022 4:34 AM CDT) WBC 5.8 3.5 - 10.5 10? 3 /uL 10/18/2022 7:19 AM [facility] RBC 4.08(L) 4.30 - 5.70 10? 6 /uL 10/18/2022 7:19 AM [facility] Hemoglobin 12.4 12.0 - 17.6 g/dL 10/18/2022 7:19 AM [facility] Hematocrit 38.0 35.2 - 51.7 % 10/18/2022 7:19 AM [facility] MCV 93.1 80.7 - 98.3 fL 10/18/2022 7:19 AM [facility] MCH 30.4 26.7 - 34.0 pg 10/18/2022 7:19 AM [facility] MCHC 32.6 30.8 - 35.9 g/dL 10/18/2022 7:19 AM [facility] RDW-SD 47.2 36.0 - 50.0 fL 10/18/2022 7:19 AM [facility] RDW-CV 13.7 11.2 - 14.8 % 10/18/2022 7:19 AM [facility] Platelet Count 10/18/2022 7:19 AM [facility] Comment: Platelets are clumped, appear as adequate on the slide. ??A blue top citrated tube is required for a platelet count. Notified jojo De Paz RN at 0716 on 10/18/22. MPV 10/18/2022 7:19 AM [facility] Comment:Unable to Report Immature Platelet Fraction 10/18/2022 7:19 AM [facility] Comment:Unable to Report nRBC Absolute 0.00 0 10? 3 /uL 10/18/2022 7:19 AM [facility] nRBC Auto 0.0 0 /100 WBC 10/18/2022 7:19 AM [facility] Neutrophils % 52.0 35.0 - 70.0 % 10/18/2022 7:19 AM [facility] Lymphocytes % 28.3 20.0 - 43.0 % 10/18/2022 7:19 AM [facility] Monocytes % 15.8(H) 5.0 - 13.0 % 10/18/2022 7:19 AM [facility] Eosinophils % 3.1 0.0 - 6.0 % 10/18/2022 7:19 AM [facility] Basophil % 0.3 0.0 - 2.0 % 10/18/2022 7:19 AM [facility] Neutrophils Absolute 2.99 1.60 - 7.00 10? 3 /uL 10/18/2022 7:19 AM [facility] Lymphocyte Absolute 1.63 1.10 - 3.90 10? 3 /uL 10/18/2022 7:19 AM [facility] Monocytes Absolute 0.91 0.26 - 1.07 10? 3 /uL 10/18/2022 7:19 AM [facility] Eosinophils Absolute 0.18 0.00 - 0.47 10? 3 /uL 10/18/2022 7:19 AM [facility] Basophils Absolute 0.02 0.00 - 0.08 10? 3 /uL 10/18/2022 7:19 AM [facility] Immature Granulocytes % 0.5 0.0 - 1.0 % 10/18/2022 7:19 AM [facility] Immature Granulocytes Absolute 0.03 10/18/2022 7:19 AM [facility] Blood BLOOD SPECIMEN / Unknown Lab Venipuncture / Unknown 10/18/2022 4:34 AM CDT 10/18/2022 5:12 AM CDT Petra Fuentes MD LAB - HEMATOLOGY ORD ERABLES [facility] [address] [place] [phone], [facility] [phone] * (ABNORMAL) BASIC METABOLIC PANEL (CALCIUM TOTAL) (10/18/2022 4:34 AM CDT) BUN 16 7 - 26 mg/dL 10/18/2022 5:46 AM [facility] Creatinine 0.55(L) 0.71 - 1.16 mg/dL 10/18/2022 5:46 AM [facility] Sodium 140 136 - 145 mmol/L 10/18/2022 5:46 AM [facility] Potassium 5.5(H) 3.5 - 4.5 mmol/L 10/18/2022 5:46 AM [facility] Chloride 105 98 - 107 mmol/L 10/18/2022 5:46 AM [facility] CO2 22 22 - 29 mmol/L 10/18/2022 5:46 AM [facility] Glucose 118(H) 70 - 115 mg/dL 10/18/2022 5:46 AM [facility] Calcium 10.1 8.4 - 10.2 mg/dL 10/18/2022 5:46 AM [facility] Anion Gap 19(H) 8 - 18 10/18/2022 5:46 AM [facility] BUN/Creatinine Ratio 29(H) 7 - 23 10/18/2022 5:46 AM [facility] Osmolality Calculated 292 270 - 300 mOsm/kg 10/18/2022 5:46 AM [facility] eGFR by CKD-EPI >90 >=90 mL/min/1.7 3 m2 10/18/2022 5:46 AM [facility] Blood BLOOD SPECIMEN / Unknown Lab Venipuncture / Unknown 10/18/2022 4:34 AM CDT 10/18/2022 5:12 AM T Petra Fuentes MD LAB - CHEMISTRY MARSHAL MEDEROS [facility] Organization Address City/State/ZIP Co de Phone Number [facility] [address] [place] [address], [facility] [phone] * GLUCOSE - POINT OF CARE (10/18/2022 12:19 AM CDT) Glucose WB/POC 95 70 - 115 mg/dL 10/18/2022 12:23 AM [facility] Specimen Type Cap Fingerstick 2022 12:23 AM [facility] Blood BLOOD SPECIMEN / Unknown 10/18/2022 12:19 AM CDT 10/18/2022 12:23 AM CDT Ck Mccurdy MD LAB - POINT OF CARE ORDERABLES [facility] [address] [place] [address], [place] [phone] * (ABNORMAL) GLUCOSE - POINT OF CARE (10/17/2022 6:16 PM CDT) Glucose WB/POC 132(H) 70 - 115 mg/dL 10/17/2022 6:21 PM CDT [facility] Specimen Type Cap Fingerstick 2022 6:21 PM CDT [facility] Blood BLOOD SPECIMEN / Unknown 10/17/2022 6:16 PM CDT 10/17/2022 6:21 PM CDT Ck Mccurdy MD LAB - POINT OF CARE ORDERABLES Performing Organization Address City/[facility]/ZIP Co de Phone Number [address] [address], [place] [phone] * (ABNORMAL) GLUCOSE - POINT OF CARE (10/17/2022 8:00 AM CDT) Glucose WB/POC 132(H) 70 - 115 mg/dL 10/17/2022 8:05 AM CDT [facility] Specimen Type Cap Fingerstick 2022 8:05 AM CDT [facility] Blood BLOOD SPECIMEN / Unknown 10/17/2022 8:00 AM CDT 10/17/2022 8:05 AM CDT Ck Mccurdy MD LAB - POINT OF CARE ORDERABLES [address] [address], [place] [phone] * (ABNORMAL) GLUCOSE - POINT OF CARE (10/17/2022 2:44 AM CDT) Glucose WB/POC 123(H) 70 - 115 mg/dL 10/17/2022 2:45 AM CDT [facility] Specimen Type Cap Fingerstick 2022 2:45 AM CDT [facility] Blood BLOOD SPECIMEN / Unknown 10/17/2022 2:44 AM CDT 10/17/2022 2:45 AM CDT Artur Mcgraw MD LAB - POINT OF CARE ORDERABLES [facility] [address] [place] [address], [facility] [phone] * XR CHEST 1VW PORTABLE (10/16/2022 1:51 PM CDT) Anatomical Region Laterality Modality Chest Radiographic Cynthia ging 10/16/2022 3:18 PM CDT Narrative 10/16/2022 3:19 PM CDT PROCEDURE: ??XR CHEST 1VW PORTABLE DATE/TIME OF EXAM: ??10/16/2022 1:51 PM CLINICAL INFORMATION: None relevant/not provided if blank. Indication: T17.908S: Aspiration into airway, sequela Additional History: COMPARISON: Chest x-ray 10/13/2022 FINDINGS/IMPRESSION: Tracheostomy tube in place similar to prior exam. Bibasilar subsegmental atelectasis no pleural effusion. No pneumothorax. The cardiomediastinal silhouette is normal. The visible bony thorax is intact. > Interpreting Provider: Eron Payton on 10/16/2022 3:19 PM Procedure Note Eron Payton MD - 10/16/2022 PROCEDURE: XR CHEST 1VW PORTABLE DATE/TIME OF EXAM: 10/16/2022 1:51 PM CLINICAL INFORMATION: None relevant/not provided if blank. Indication: T17.908S: Aspiration into airway, sequela Additional History: COMPARISON: Chest x-ray 10/13/2022 FINDINGS/IMPRESSION: Tracheostomy tube in place similar to prior exam. Bibasilar subsegmental atelectasis no pleural effusion. Nopneumothorax. The cardiomediastinal silhouette is normal. The visible bony thorax is intact. > Interpreting Provider: Eron Payton on 10/16/2022 3:19 PM Artur Mcgraw MD DIAGNOSTIC IMAGING ORDERABLES * (ABNORMAL) GLUCOSE - POINT OF CARE (10/16/2022 7:39 AM CDT) Glucose WB/POC 123(H) 70 - 115 mg/dL 10/16/2022 7:39 AM CDT [facility] Specimen Type Cap Fingerstick 2022 7:39 AM CDT [facility] Blood BLOOD SPECIMEN / Unknown 10/16/2022 7:39 AM CDT 10/16/2022 7:39 AM CDT Artur Mcgraw MD LAB - POINT OF CARE ORDERABLES [address] [address], [place] [phone] * PHOSPHORUS BLOOD (10/16/2022 7:29 AM CDT) Phosphorus 2.8 2.8 - 5.1 mg/dL 10/16/2022 9:03 AM CDT [facility] Blood BLOOD SPECIMEN / Unknown Lab Venipuncture / Unknown 10/16/2022 7:29 AM CDT 10/16/2022 8:33 AM CDT Petra Fuentes MD LAB - CHEMISTRY MARSHAL MEDEROS [address] [address], [place] [phone] * MAGNESIUM BLOOD (10/16/2022 7:29 AM CDT) Magnesium 1.7 1.6 - 2.6 mg/dL 10/16/2022 9:03 AM CDT [facility] Blood BLOOD SPECIMEN / Unknown Lab Venipuncture / Unknown 10/16/2022 7:29 AM CDT 10/16/2022 8:33 AM CDT Petra Fuentes MD LAB - CHEMISTRY MARSHAL Diana Organization Address City/State/ZIP Co de Phone Number [facility] [address] [place] [address], [facility] [phone] * (ABNORMAL) CBC W AUTO DIFFERENTIAL (10/16/2022 7:29 AM CDT) WBC 9.3 3.5 - 10.5 10? 3 /uL 10/16/2022 8:40 AM [facility] RBC 4.35 4.30 - 5.70 10? 6 /uL 10/16/2022 8:40 AM [facility] Hemoglobin 13.5 12.0 - 17.6 g/dL 10/16/2022 8:40 AM [facility] Hematocrit 40.6 35.2 - 51.7 % 10/16/2022 8:40 AM [facility] MCV 93.3 80.7 - 98.3 fL 10/16/2022 8:40 AM [facility] MCH 31.0 26.7 - 34.0 pg 10/16/2022 8:40 AM [facility] MCHC 33.3 30.8 - 35.9 g/dL 10/16/2022 8:40 AM [facility] RDW-SD 47.5 36.0 - 50.0 fL 10/16/2022 8:40 AM [facility] RDW-CV 13.8 11.2 - 14.8 % 10/16/2022 8:40 AM [facility] Platelet Count 161 150 - 400 10? 3 /uL 10/16/2022 8:40 AM [facility] MPV 14.4(H) 9.4 - 12.9 fL 10/16/2022 8:40 AM [facility] Immature Platelet Fraction 16.0(H) 1.1 - 6.2 % 10/16/2022 8:40 AM [facility] nRBC Absolute 0.00 0 10? 3 /uL 10/16/2022 8:40 AM [facility] nRBC Auto 0.0 0 /100 WBC 10/16/2022 8:40 AM [facility] Neutrophils % 66.1 35.0 - 70.0 % 10/16/2022 8:40 AM [facility] Lymphocytes % 19.4(L) 20.0 - 43.0 % 10/16/2022 8:40 AM [facility] Monocytes % 11.6 5.0 - 13.0 % 10/16/2022 8:40 AM [facility] Eosinophils % 2.5 0.0 - 6.0 % 10/16/2022 8:40 AM [facility] Basophil % 0.2 0.0 - 2.0 % 10/16/2022 8:40 AM [facility] Neutrophils Absolute 6.12 1.60 - 7.00 10? 3 /uL 10/16/2022 8:40 AM [facility] Lymphocyte Absolute 1.79 1.10 - 3.90 10? 3 /uL 10/16/2022 8:40 AM [facility] Monocytes Absolute 1.07 0.26 - 1.07 10? 3 /uL 10/16/2022 8:40 AM [facility] Eosinophils Absolute 0.23 0.00 - 0.47 10? 3 /uL 10/16/2022 8:40 AM [facility] Basophils Absolute 0.02 0.00 - 0.08 10? 3 /uL 10/16/2022 8:40 AM [facility] Immature Granulocytes % 0.2 0.0 - 1.0 % 10/16/2022 8:40 AM [facility] Immature Granulocytes Absolute 0.02 10/16/2022 8:40 AM [facility] Blood BLOOD SPECIMEN / Unknown Lab Venipuncture / Unknown 10/16/2022 7:29 AM CDT 10/16/2022 8:31 AM T Petra Fuentes MD LAB - HEMATOLOGY ORD ERABLES [facility] [address] [place] [address] [phone] * (ABNORMAL) BASIC METABOLIC PANEL (CALCIUM TOTAL) (10/16/2022 7:29 AM CDT) BUN 15 7 - 26 mg/dL 10/16/2022 9:03 AM [facility] Creatinine 0.44(L) 0.71 - 1.16 mg/dL 10/16/2022 9:03 AM [facility] Sodium 139 136 - 145 mmol/L 10/16/2022 9:03 AM [facility] Potassium 4.2 3.5 - 4.5 mmol/L 10/16/2022 9:03 AM [facility] Chloride 104 98 - 107 mmol/L 10/16/2022 9:03 AM [facility] CO2 23 22 - 29 mmol/L 10/16/2022 9:03 AM [facility] Glucose 117(H) 70 - 115 mg/dL 10/16/2022 9:03 AM [facility] Calcium 10.4(H) 8.4 - 10.2 mg/dL 10/16/2022 9:03 AM [facility] Anion Gap 16 8 - 18 10/16/2022 9:03 AM [facility] BUN/Creatinine Ratio 34(H) 7 - 23 10/16/2022 9:03 AM [facility] Osmolality Calculated 290 270 - 300 mOsm/kg 10/16/2022 9:03 AM [facility] eGFR by CKD-EPI >90 >=90 mL/min/1.7 3 m2 10/16/2022 9:03 AM [facility] Blood BLOOD SPECIMEN / Unknown Lab Venipuncture / Unknown 10/16/2022 7:29 AM CDT 10/16/2022 8:33 AM T Petra Fuentes MD LAB - CHEMISTRY MARSHAL MEDEROS [facility] Organization Address City/State/ZIP Co de Phone Number [facility] [address] [place] [phone], [facility] [phone] * (ABNORMAL) GLUCOSE - POINT OF CARE (10/16/2022 6:14 AM CDT) Glucose WB/POC 142(H) 70 - 115 mg/dL 10/16/2022 6:19 AM CDT [facility] Specimen Type Cap Fingerstick 2022 6:19 AM CDT [facility] Blood BLOOD SPECIMEN / Unknown 10/16/2022 6:14 AM CDT 10/16/2022 6:19 AM CDT Artur Mcgraw MD LAB - POINT OF CARE ORDERABLES [facility] [address] [place] [address], [place] [phone] * GLUCOSE - POINT OF CARE (10/16/2022 12:16 AM CDT) Glucose WB/POC 113 70 - 115 mg/dL 10/16/2022 6:12 AM CDT [facility] Specimen Type Cap Fingerstick 2022 6:12 AM CDT [facility] Blood BLOOD SPECIMEN / Unknown 10/16/2022 12:16 AM CDT 10/16/2022 6:12 AM CDT Artur Mcgraw MD LAB - POINT OF CARE ORDERABLES Performing Organization Address City/[facility]/ZIP Co de Phone Number [address] [address], [place] [phone] * (ABNORMAL) GLUCOSE - POINT OF CARE (10/15/2022 6:11 AM CDT) Glucose WB/POC 131(H) 70 - 115 mg/dL 10/15/2022 11:34 AM CDT [facility] Specimen Type Cap Fingerstick 2022 11:34 AM CDT [facility] Blood BLOOD SPECIMEN / Unknown 10/15/2022 6:11 AM CDT 10/15/2022 11:34 AM CDT Venessa Rosado DO LAB - POINT OF CARE ORDERABLES [facility] [address] [place] [address], [place] [phone] * (ABNORMAL) GLUCOSE - POINT OF CARE (10/15/2022 12:06 AM CDT) Glucose WB/POC 118(H) 70 - 115 mg/dL 10/15/2022 12:11 AM CDT [facility] Specimen Type Cap Fingerstick 2022 12:11 AM CDT [facility] Blood BLOOD SPECIMEN / Unknown 10/15/2022 12:06 AM CDT 10/15/2022 12:11 AM CDT Venessa Rosado DO LAB - POINT OF CARE ORDERABLES [facility] [address] [place] [address], [place] [phone] * (ABNORMAL) GLUCOSE - POINT OF CARE (10/14/2022 5:25 PM CDT) Glucose WB/POC 117(H) 70 - 115 mg/dL 10/14/2022 8:36 PM CDT [facility] Specimen Type Cap Fingerstick 2022 8:36 PM CDT [facility] Blood BLOOD SPECIMEN / Unknown 10/14/2022 5:25 PM CDT 10/14/2022 8:36 PM CDT Venessa Rosado DO LAB - POINT OF CARE ORDERABLES [facility] [address] [place] [address], [place] [phone] * (ABNORMAL) GLUCOSE - POINT OF CARE (10/14/2022 12:25 PM CDT) Glucose WB/POC 169(H) 70 - 115 mg/dL 10/14/2022 12:26 PM CDT [facility] Specimen Type Cap Fingerstick 2022 12:26 PM CDT [facility] Blood BLOOD SPECIMEN / Unknown 10/14/2022 12:25 PM CDT 10/14/2022 12:26 PM CDT Venessa Rosado DO LAB - POINT OF CARE ORDERABLES [address] [address], [facility] [phone] * (ABNORMAL) GLUCOSE - POINT OF CARE (10/14/2022 6:32 AM CDT) Glucose WB/POC 122(H) 70 - 115 mg/dL 10/14/2022 6:33 AM CDT [facility] Specimen Type Cap Fingerstick 2022 6:33 AM CDT [facility] Blood BLOOD SPECIMEN / Unknown 10/14/2022 6:32 AM CDT 10/14/2022 6:33 AM CDT Venessa Rosado DO LAB - POINT OF CARE ORDERABLES Performing Organization Address [facility]/ZIP Co de Phone Number [address] [address], [place] [phone] * PHOSPHORUS BLOOD (10/14/2022 5:53 AM CDT) Phosphorus 3.2 2.8 - 5.1 mg/dL 10/14/2022 7:48 AM CDT [facility] Blood BLOOD SPECIMEN / Unknown Lab Venipuncture / Unknown 10/14/2022 5:53 AM CDT 10/14/2022 7:24 AM CDT Petra Fuentes MD LAB - CHEMISTRY MARSHAL MEDEROS [address] [address], [place] [phone] * MAGNESIUM BLOOD (10/14/2022 5:53 AM CDT) Magnesium 1.7 1.6 - 2.6 mg/dL 10/14/2022 7:48 AM [facility] Blood BLOOD SPECIMEN / Unknown Lab Venipuncture / Unknown 10/14/2022 5:53 AM CDT 10/14/2022 7:24 AM CDT Petra Fuentes MD LAB - CHEMISTRY MARSHAL Diana Organization Address City/State/ZIP Co de Phone Number [facility] [address] [place] [address] [phone] * (ABNORMAL) CBC W AUTO DIFFERENTIAL (10/14/2022 5:53 AM CDT) WBC 7.0 3.5 - 10.5 10? 3 /uL 10/14/2022 7:38 AM [facility] RBC 4.07(L) 4.30 - 5.70 10? 6 /uL 10/14/2022 7:38 AM [facility] Hemoglobin 12.7 12.0 - 17.6 g/dL 10/14/2022 7:38 AM [facility] Hematocrit 38.1 35.2 - 51.7 % 10/14/2022 7:38 AM [facility] MCV 93.6 80.7 - 98.3 fL 10/14/2022 7:38 AM [facility] MCH 31.2 26.7 - 34.0 pg 10/14/2022 7:38 AM [facility] MCHC 33.3 30.8 - 35.9 g/dL 10/14/2022 7:38 AM [facility] RDW-SD 48.9 36.0 - 50.0 fL 10/14/2022 7:38 AM [facility] RDW-CV 14.3 11.2 - 14.8 % 10/14/2022 7:38 AM [facility] Platelet Count 156 150 - 400 10? 3 /uL 10/14/2022 7:38 AM [facility] MPV 10/14/2022 7:38 AM [facility] Comment:Unable to Report Immature Platelet Fraction 16.3(H) 1.1 - 6.2 % 10/14/2022 7:38 AM [facility] nRBC Absolute 0.00 0 10? 3 /uL 10/14/2022 7:38 AM [facility] nRBC Auto 0.0 0 /100 WBC 10/14/2022 7:38 AM [facility] Neutrophils % 54.8 35.0 - 70.0 % 10/14/2022 7:38 AM [facility] Lymphocytes % 30.9 20.0 - 43.0 % 10/14/2022 7:38 AM [facility] Monocytes % 11.2 5.0 - 13.0 % 10/14/2022 7:38 AM [facility] Eosinophils % 2.7 0.0 - 6.0 % 10/14/2022 7:38 AM [facility] Basophil % 0.1 0.0 - 2.0 % 10/14/2022 7:38 AM [facility] Neutrophils Absolute 3.81 1.60 - 7.00 10? 3 /uL 10/14/2022 7:38 AM [facility] Lymphocyte Absolute 2.15 1.10 - 3.90 10? 3 /uL 10/14/2022 7:38 AM [facility] Monocytes Absolute 0.78 0.26 - 1.07 10? 3 /uL 10/14/2022 7:38 AM [facility] Eosinophils Absolute 0.19 0.00 - 0.47 10? 3 /uL 10/14/2022 7:38 AM [facility] Basophils Absolute 0.01 0.00 - 0.08 10? 3 /uL 10/14/2022 7:38 AM [facility] Immature Granulocytes % 0.3 0.0 - 1.0 % 10/14/2022 7:38 AM [facility] Immature Granulocytes Absolute 0.02 10/14/2022 7:38 AM [facility] Blood BLOOD SPECIMEN / Unknown Lab Venipuncture / Unknown 10/14/2022 5:53 AM CDT 10/14/2022 7:24 AM T Petra Fuentes MD LAB - HEMATOLOGY ORD ERABLES [facility] [address] [place] [address], [facility] [phone] * (ABNORMAL) BASIC METABOLIC PANEL (CALCIUM TOTAL) (10/14/2022 5:53 AM CDT) BUN 15 7 - 26 mg/dL 10/14/2022 7:48 AM [facility] Creatinine 0.43(L) 0.71 - 1.16 mg/dL 10/14/2022 7:48 AM [facility] Sodium 140 136 - 145 mmol/L 10/14/2022 7:48 AM [facility] Potassium 4.5 3.5 - 4.5 mmol/L 10/14/2022 7:48 AM [facility] Chloride 106 98 - 107 mmol/L 10/14/2022 7:48 AM [facility] CO2 27 22 - 29 mmol/L 10/14/2022 7:48 AM [facility] Glucose 100 70 - 115 mg/dL 10/14/2022 7:48 AM [facility] Calcium 10.2 8.4 - 10.2 mg/dL 10/14/2022 7:48 AM [facility] Anion Gap 12 8 - 18 10/14/2022 7:48 AM [facility] BUN/Creatinine Ratio 35(H) 7 - 23 10/14/2022 7:48 AM [facility] Osmolality Calculated 291 270 - 300 mOsm/kg 10/14/2022 7:48 AM [facility] eGFR by CKD-EPI >90 >=90 mL/min/1.7 3 m2 10/14/2022 7:48 AM [facility] Blood BLOOD SPECIMEN / Unknown Lab Venipuncture / Unknown 10/14/2022 5:53 AM CDT 10/14/2022 7:24 AM T Petra Fuentes MD LAB - CHEMISTRY MARSHAL Diana Organization Address City/State/ZIP Co de Phone Number [facility] [address] [place] [address], [facility] [phone] * (ABNORMAL) GLUCOSE - POINT OF CARE (10/14/2022 12:19 AM CDT) Glucose WB/POC 140(H) 70 - 115 mg/dL 10/14/2022 12:19 AM CDT [facility] Specimen Type Cap Fingerstick 2022 12:19 AM CDT [facility] Blood BLOOD SPECIMEN / Unknown 10/14/2022 12:19 AM CDT 10/14/2022 12:19 AM CDT [facility]eness[facility] LAB - POINT OF CARE ORDERABLES [address] [address], [place] [phone] * (ABNORMAL) GLUCOSE - POINT OF CARE (10/13/2022 6:15 PM CDT) Glucose WB/POC 132(H) 70 - 115 mg/dL 10/13/2022 6:16 PM CDT [facility] Specimen Type Cap Fingerstick 2022 6:16 PM CDT [facility] Blood BLOOD SPECIMEN / Unknown 10/13/2022 6:15 PM CDT 10/13/2022 6:16 PM CDT Venessa Rosado DO LAB - POINT OF CARE ORDERABLES [address] [address], [place] [phone] * (ABNORMAL) GLUCOSE - POINT OF CARE (10/13/2022 11:28 AM CDT) Glucose WB/POC 144(H) 70 - 115 mg/dL 10/13/2022 11:33 AM CDT [facility] Specimen Type Cap Fingerstick 2022 11:33 AM CDT [facility] Blood BLOOD SPECIMEN / Unknown 10/13/2022 11:28 AM CDT 10/13/2022 11:33 AM CDT Venessa Rosado DO LAB - POINT OF CARE ORDERABLES [facility] [place] [address], [facility] [phone] * XR CHEST 1VW PORTABLE (10/13/2022 8:22 AM CDT) Anatomical Region Laterality Modality Chest Radiographic Cynthia ging 10/13/2022 9:46 AM CDT Narrative 10/13/2022 10:55 AM CDT PROCEDURE: ??XR CHEST 1VW PORTABLE, DATE/TIME OF EXAM: ??10/13/2022 9:09 AM, LOCATION ??[facility] INDICATION: R50.9: Fever, unspecified fever cause ADDITIONAL CLINICAL INFORMATION: Ordering Provider Reason For Exam: ??Fever COMPARISON: Multiple priors, the most recent chest x-ray dated 10/09/2022. FINDINGS/IMPRESSION: Tracheostomy tube terminates in the midthoracic trachea. Interval mostly resolution of the right lower and middle lobe opacities. There is no pleural effusion or pneumothorax. The cardiomediastinal silhouette is normal. > Dictated by Nash Arreola MD (residential mortgage manager). > Dictated by Nash Arreola (Shot Dropper) 10/13/2022 9:46 AM IHermes MD have personally reviewed and interpreted this examination/study. > Interpreting Provider: Hermes Martinez MD on 10/13/2022 10:55 AM Procedure Note Hermes Martinez MD - 10/13/2022 PROCEDURE: XR CHEST 1VW PORTABLE, DATE/TIME OF EXAM: 10/13/2022 9:09AM, LOCATION [facility] INDICATION: R50.9: Fever, unspecified fever cause ADDITIONAL CLINICAL INFORMATION: Ordering Provider Reason For Exam: Fever COMPARISON: Multiple priors, the most recent chest x-ray dated 10/09/2022. FINDINGS/IMPRESSION: Tracheostomy tube terminates in the midthoracic trachea. Interval mostly resolution of the right lower and middle lobe opacities. There is no pleural effusion or pneumothorax. The cardiomediastinal silhouette is normal. > Dictated by Nash Arreola MD (residential mortgage manager). > Dictated by Nash Arreola (Shot Dropper) 10/13/2022 9:46 AM I, Hermes Martinez MD have personally reviewed and interpreted this examination/study. > Interpreting Provider: Hermes Martinez MD on 10/13/2022 10:55 AM [facility]ado DO DIAGNOSTIC IMAGING O RDERABLES * (ABNORMAL) GLUCOSE - POINT OF CARE (10/12/2022 9:49 PM CDT) Glucose WB/POC 123(H) 70 - 115 mg/dL 10/12/2022 9:52 PM CDT [facility] Specimen Type Cap Fingerstick 2022 9:52 PM CDT [facility] Blood BLOOD SPECIMEN / Unknown 10/12/2022 9:49 PM CDT 10/12/2022 9:52 PM CDT Venessa Rosado DO LAB - POINT OF CARE ORDERABLES [address] [address], [facility] [phone] * (ABNORMAL) GLUCOSE - POINT OF CARE (10/12/2022 11:45 AM CDT) Glucose WB/POC 116(H) 70 - 115 mg/dL 10/12/2022 11:46 AM CDT [facility] Specimen Type Cap Fingerstick 2022 11:46 AM CDT [facility] Blood BLOOD SPECIMEN / Unknown 10/12/2022 11:45 AM CDT 10/12/2022 11:46 AM CDT Venessa Rosado DO LAB - POINT OF CARE ORDERABLES [address] [address], [place] [phone] * PHOSPHORUS BLOOD (10/12/2022 7:16 AM CDT) Phosphorus 3.4 2.8 - 5.1 mg/dL 10/12/2022 8:12 AM CDT [facility] Blood BLOOD SPECIMEN / Unknown Lab Venipuncture / Unknown 10/12/2022 7:16 AM CDT 10/12/2022 7:43 AM CDT Petra Fuentes MD LAB - CHEMISTRY MARSHAL MEDEROS [facility] [address] [place] [address], [facility] [phone] * MAGNESIUM BLOOD (10/12/2022 7:16 AM CDT) Magnesium 1.6 1.6 - 2.6 mg/dL 10/12/2022 8:12 AM T [facility] Blood BLOOD SPECIMEN / Unknown Lab Venipuncture / Unknown 10/12/2022 7:16 AM CDT 10/12/2022 7:43 AM CDT Petra Fuentes MD LAB - CHEMISTRY AMRSHAL MEDEROS [address] [address], [facility] [phone] * (ABNORMAL) CBC W AUTO DIFFERENTIAL (10/12/2022 7:16 AM CDT) WBC 9.2 3.5 - 10.5 10? 3 /uL 10/12/2022 8:23 AM T [facility] RBC 3.83(L) 4.30 - 5.70 10? 6 /uL 10/12/2022 8:23 AM T [facility] Hemoglobin 12.1 12.0 - 17.6 g/dL 10/12/2022 8:23 AM T [facility] Hematocrit 36.0 35.2 - 51.7 % 10/12/2022 8:23 AM [facility] MCV 94.0 80.7 - 98.3 fL 10/12/2022 8:23 AM T [facility] MCH 31.6 26.7 - 34.0 pg 10/12/2022 8:23 AM [facility] MCHC 33.6 30.8 - 35.9 g/dL 10/12/2022 8:23 AM [facility] RDW-SD 49.1 36.0 - 50.0 fL 10/12/2022 8:23 AM [facility] RDW-CV 14.2 11.2 - 14.8 % 10/12/2022 8:23 AM [facility] Platelet Count 165 150 - 400 10? 3 /uL 10/12/2022 8:23 AM [facility] MPV 10/12/2022 8:23 AM [facility] Comment:Unable to Report Immature Platelet Fraction 13.9(H) 1.1 - 6.2 % 10/12/2022 8:23 AM [facility] nRBC Absolute 0.00 0 10? 3 /uL 10/12/2022 8:23 AM [facility] nRBC Auto 0.0 0 /100 WBC 10/12/2022 8:23 AM [facility] Neutrophils % 60.8 35.0 - 70.0 % 10/12/2022 8:23 AM [facility] Lymphocytes % 23.6 20.0 - 43.0 % 10/12/2022 8:23 AM [facility] Monocytes % 11.4 5.0 - 13.0 % 10/12/2022 8:23 AM [facility] Eosinophils % 3.9 0.0 - 6.0 % 10/12/2022 8:23 AM [facility] Basophil % 0.2 0.0 - 2.0 % 10/12/2022 8:23 AM [facility] Neutrophils Absolute 5.62 1.60 - 7.00 10? 3 /uL 10/12/2022 8:23 AM [facility] Lymphocyte Absolute 2.18 1.10 - 3.90 10? 3 /uL 10/12/2022 8:23 AM [facility] Monocytes Absolute 1.05 0.26 - 1.07 10? 3 /uL 10/12/2022 8:23 AM [facility] Eosinophils Absolute 0.36 0.00 - 0.47 10? 3 /uL 10/12/2022 8:23 AM [facility] Basophils Absolute 0.02 0.00 - 0.08 10? 3 /uL 10/12/2022 8:23 AM [facility] Immature Granulocytes % 0.1 0.0 - 1.0 % 10/12/2022 8:23 AM [facility] Immature Granulocytes Absolute 0.01 10/12/2022 8:23 AM [facility] Blood BLOOD SPECIMEN / Unknown Lab Venipuncture / Unknown 10/12/2022 7:16 AM CDT 10/12/2022 7:43 AM T Petra Fuentes MD LAB - HEMATOLOGY ORD ERABLES [facility] [address] [place] [address], [facility] [phone] * (ABNORMAL) BASIC METABOLIC PANEL (CALCIUM TOTAL) (10/12/2022 7:16 AM CDT) BUN 12 7 - 26 mg/dL 10/12/2022 8:12 AM [facility] Creatinine 0.50(L) 0.71 - 1.16 mg/dL 10/12/2022 8:12 AM [facility] Sodium 141 136 - 145 mmol/L 10/12/2022 8:12 AM [facility] Potassium 4.2 3.5 - 4.5 mmol/L 10/12/2022 8:12 AM [facility] Chloride 106 98 - 107 mmol/L 10/12/2022 8:12 AM [facility] CO2 25 22 - 29 mmol/L 10/12/2022 8:12 AM [facility] Glucose 86 70 - 115 mg/dL 10/12/2022 8:12 AM [facility] Calcium 10.1 8.4 - 10.2 mg/dL 10/12/2022 8:12 AM [facility] Anion Gap 14 8 - 18 10/12/2022 8:12 AM [facility] BUN/Creatinine Ratio 24(H) 7 - 23 10/12/2022 8:12 AM [facility] Osmolality Calculated 291 270 - 300 mOsm/kg 10/12/2022 8:12 AM CDT [facility] eGFR by CKD-EPI >90 >=90 mL/min/1.7 3 m2 10/12/2022 8:12 AM CDT [facility] Blood BLOOD SPECIMEN / Unknown Lab Venipuncture / Unknown 10/12/2022 7:16 AM CDT 10/12/2022 7:43 AM CDT Petra Fuentes MD LAB - CHEMISTRY MARSHAL MEDEROS Performing Organization Address City/[facility]/ZIP Co de Phone Number [facility] [address] [place] [phone], [place] [phone] * (ABNORMAL) GLUCOSE - POINT OF CARE (10/12/2022 5:42 AM CDT) Glucose WB/POC 121(H) 70 - 115 mg/dL 10/12/2022 5:44 AM CDT [facility] Specimen Type Cap Fingerstick 2022 5:44 AM CDT [facility] Blood BLOOD SPECIMEN / Unknown 10/12/2022 5:42 AM CDT 10/12/2022 5:43 AM CDT Artur Mcgraw MD LAB - POINT OF CARE ORDERABLES Performing Organization Address City/[facility]/ZIP Co de Phone Number [facility] [address] [place] [phone], [place] [phone] * GLUCOSE - POINT OF CARE (10/12/2022 1:16 AM CDT) Glucose WB/POC 87 70 - 115 mg/dL 10/12/2022 1:17 AM CDT [facility] Specimen Type Cap Fingerstick 2022 1:17 AM CDT [facility] Blood BLOOD SPECIMEN / Unknown 10/12/2022 1:16 AM CDT 10/12/2022 1:17 AM CDT Artur Mcgraw MD LAB - POINT OF CARE ORDERABLES Performing Organization Address City/[facility]/ZIP Co de Phone Number [facility] [address] [place] [phone], [place] [phone] * GLUCOSE - POINT OF CARE (10/11/2022 5:16 PM CDT) Glucose WB/POC 111 70 - 115 mg/dL 10/11/2022 5:17 PM CDT [facility] Specimen Type Cap Fingerstick 2022 5:17 PM CDT [facility] Blood BLOOD SPECIMEN / Unknown 10/11/2022 5:16 PM CDT 10/11/2022 5:17 PM CDT Artur Mcgraw MD LAB - POINT OF CARE ORDERABLES Performing Organization Address City/[facility]/ZIP Co de Phone Number [address] [address], [place] [phone] * GLUCOSE - POINT OF CARE (10/11/2022 12:08 PM CDT) Glucose WB/POC 99 70 - 115 mg/dL 10/11/2022 12:09 PM CDT [facility] Specimen Type Cap Fingerstick 2022 12:09 PM CDT [facility] Blood BLOOD SPECIMEN / Unknown 10/11/2022 12:08 PM CDT 10/11/2022 12:09 PM CDT Artur Mcgraw MD LAB - POINT OF CARE ORDERABLES [facility] [address] [place] [phone], [place] [phone] * GLUCOSE - POINT OF CARE (10/11/2022 6:02 AM CDT) Glucose WB/POC 109 70 - 115 mg/dL 10/11/2022 6:06 AM CDT [facility] Specimen Type Cap Fingerstick 2022 6:06 AM CDT [facility] Blood BLOOD SPECIMEN / Unknown 10/11/2022 6:02 AM CDT 10/11/2022 6:06 AM CDT Artur Mcgraw MD LAB - POINT OF CARE ORDERABLES [facility] [address] [place] [phone], [place] [phone] * GLUCOSE - POINT OF CARE (10/11/2022 12:12 AM CDT) Glucose WB/POC 115 70 - 115 mg/dL 10/11/2022 12:16 AM CDT [facility] Specimen Type Cap Fingerstick 2022 12:16 AM CDT [facility] Blood BLOOD SPECIMEN / Unknown 10/11/2022 12:12 AM CDT 10/11/2022 12:16 AM CDT Artur Mcgraw MD LAB - POINT OF CARE ORDERABLES [address] [address], [place] [phone] * (ABNORMAL) GLUCOSE - POINT OF CARE (10/10/2022 6:28 PM CDT) Glucose WB/POC 120(H) 70 - 115 mg/dL 10/10/2022 6:32 PM CDT [facility] Specimen Type Cap Fingerstick 2022 6:32 PM CDT [facility] Blood BLOOD SPECIMEN / Unknown 10/10/2022 6:28 PM CDT 10/10/2022 6:32 PM CDT Artur Mcgraw MD LAB - POINT OF CARE ORDERABLES [address] [address], [place] [phone] * (ABNORMAL) GLUCOSE - POINT OF CARE (10/10/2022 11:51 AM CDT) Glucose WB/POC 121(H) 70 - 115 mg/dL 10/10/2022 11:55 AM CDT [facility] Specimen Type Cap Fingerstick 2022 11:55 AM CDT [facility] Blood BLOOD SPECIMEN / Unknown 10/10/2022 11:51 AM CDT 10/10/2022 11:55 AM CDT Artur Mcgraw MD LAB - POINT OF CARE ORDERABLES Performing Organization Address City/[facility]/ZIP Co de Phone Number [facility] [address] [place] [phone], [place] [phone] * (ABNORMAL) GLUCOSE - POINT OF CARE (10/10/2022 6:21 AM CDT) Glucose WB/POC 125(H) 70 - 115 mg/dL 10/10/2022 6:26 AM CDT [facility] Specimen Type Cap Fingerstick 2022 6:26 AM CDT [facility] Blood BLOOD SPECIMEN / Unknown 10/10/2022 6:21 AM CDT 10/10/2022 6:26 AM CDT Artur Mcgraw MD LAB - POINT OF CARE ORDERABLES Performing Organization Address City/[facility]/ZIP Co de Phone Number [address] [address], [place] [phone] * GLUCOSE - POINT OF CARE (10/10/2022 12:41 AM CDT) Glucose WB/POC 105 70 - 115 mg/dL 10/10/2022 12:46 AM CDT [facility] Specimen Type Cap Fingerstick 2022 12:46 AM CDT [facility] Blood BLOOD SPECIMEN / Unknown 10/10/2022 12:41 AM CDT 10/10/2022 12:46 AM CDT Artur Mcgraw MD LAB - POINT OF CARE ORDERABLES [place] [address] [place] [address], [place] [phone] * (ABNORMAL) GLUCOSE - POINT OF CARE (10/09/2022 6:44 PM CDT) Glucose WB/POC 119(H) 70 - 115 mg/dL 10/09/2022 6:48 PM CDT [facility] Specimen Type Cap Fingerstick 2022 6:48 PM CDT [facility] Blood BLOOD SPECIMEN / Unknown 10/09/2022 6:44 PM CDT 10/09/2022 6:48 PM CDT Artur Mcgraw MD LAB - POINT OF CARE ORDERABLES [facility] [address] [place] [address], [place] [phone] * GLUCOSE - POINT OF CARE (10/09/2022 5:05 PM CDT) Glucose WB/POC 102 70 - 115 mg/dL 10/09/2022 5:08 PM CDT [facility] Specimen Type Cap Fingerstick 2022 5:08 PM CDT [facility] Blood BLOOD SPECIMEN / Unknown 10/09/2022 5:05 PM CDT 10/09/2022 5:08 PM CDT Artur Mcgraw MD LAB - POINT OF CARE ORDERABLES [facility] [address] [place] [phone], [place] [phone] * GLUCOSE - POINT OF CARE (10/09/2022 3:02 PM CDT) Glucose WB/POC 86 70 - 115 mg/dL 10/09/2022 3:03 PM CDT [facility] Specimen Type Cap Fingerstick 2022 3:03 PM CDT [facility] Blood BLOOD SPECIMEN / Unknown 10/09/2022 3:02 PM CDT 10/09/2022 3:03 PM CDT Artur Mcgraw MD LAB - POINT OF CARE ORDERABLES [address] [address], [place] [phone] * TROPONIN-I HIGH SENSITIVE (10/09/2022 12:41 PM CDT) Troponin I High Sensitive 5 <=35 ng/L 10/09/2022 1:27 PM CDT [facility] Blood BLOOD SPECIMEN / Unknown Venipuncture / Unknown 10/09/2022 12:41 PM CDT 10/09/2022 12:56 PM CDT Artur Mcgraw MD LAB - CHEMISTRY ORD ERABLES Performing Organization Address City/[facility]/ZIP Co de Phone Number [address] [address], [place] [phone] * XR CHEST 1VW PORTABLE (10/09/2022 12:27 PM CDT) Anatomical Region Laterality Modality Chest Radiographic Cynthia ging 10/09/2022 12:1 7 PM CDT Narrative 10/09/2022 2:53 PM CDT PROCEDURE: ??XR CHEST 1VW PORTABLE DATE/TIME OF EXAM: ??10/09/2022 11:57 AM CLINICAL INFORMATION: None relevant/not provided if blank. Indication: T17.908A: Aspiration into airway, initial encounter Additional History: COMPARISON: Chest x-ray 09/16/2022. FINDINGS/IMPRESSION: Tracheostomy tube in place. Rotated appearance likely limits evaluation small right pleural effusion with right lung base opacities likely representing underlying pneumonia/atelectasis, not significantly changed since prior exam. Since prior exam, there appears to be new hazy airspace opacities in the right upper lobe concerning for underlying pneumonia. The cardiomediastinal silhouette is obscured. The visible bony thorax is intact. IEron have personally reviewed and interpreted this examination/study. > Interpreting Provider: Eron Payton on 10/09/2022 2:53 PM Procedure Note Eron Payton MD - 10/09/2022 PROCEDURE: XR CHEST 1VW PORTABLE DATE/TIME OF EXAM: 10/09/2022 11:57 AM CLINICAL INFORMATION: None relevant/not provided if blank. Indication: T17.908A: Aspiration into airway, initial encounter Additional History: COMPARISON: Chest x-ray 09/16/2022. FINDINGS/IMPRESSION: Tracheostomy tube in place. Rotated appearance likely limits evaluation small right pleural effusion with right lung base opacities likely representing underlying pneumonia/atelectasis, not significantly changed since prior exam. Since prior exam, there appears to be new hazy airspace opacities in the right upper lobe concerning for underlying pneumonia. The cardiomediastinal silhouette is obscured. The visible bony thorax is intact. I, Eron Payton have personally reviewed and interpreted this examination/study. > Interpreting Provider: Eron Payton on 10/09/2022 2:53 PM Artur Mcgraw MD DIAGNOSTIC IMAGING ORDERABLES * LACTIC ACID BLOOD (10/09/2022 12:04 PM CDT) [facility] Lactic Acid-Stat 1.7 <=2.0 mmol/L 10/09/2022 1:13 PM CDT [facility] Blood BLOOD SPECIMEN / Unknown Venipuncture / Unknown 10/09/2022 12:04 PM CDT 10/09/2022 12:13 PM CDT Artur Mcgraw MD LAB - CHEMISTRY ORD ERABLES [facility] [address] [place] [phone], [facility] [phone] * (ABNORMAL) COMPREHENSIVE METABOLIC PANEL (10/09/2022 12:04 PM CDT) Pathologist [facility] BUN 14 7 - 26 mg/dL 10/09/2022 12:41 PM CDT [facility] Creatinine 0.39(L) 0.71 - 1.16 mg/dL 10/09/2022 12:41 PM [facility] Sodium 140 136 - 145 mmol/L 10/09/2022 12:41 PM [facility] Potassium 4.0 3.5 - 4.5 mmol/L 10/09/2022 12:41 PM [facility] Chloride 108(H) 98 - 107 mmol/L 10/09/2022 12:41 PM [facility] CO2 24 22 - 29 mmol/L 10/09/2022 12:41 PM [facility] Glucose 115 70 - 115 mg/dL 10/09/2022 12:41 PM [facility] Calcium 9.8 8.4 - 10.2 mg/dL 10/09/2022 12:41 PM [facility] Protein Total 6.9 6.0 - 8.3 g/dL 10/09/2022 12:41 PM [facility] Albumin 3.0(L) 3.4 - 5.0 g/dL 10/09/2022 12:41 PM [facility] Bilirubin Total 0.1(L) 0.2 - 1.2 mg/dL 10/09/2022 12:41 PM [facility] Alkaline Phosphatase 83 40 - 150 U/L 10/09/2022 12:41 PM [facility] ALT 10 5 - 55 U/L 10/09/2022 12:41 PM [facility] AST 15 5 - 34 U/L 10/09/2022 12:41 PM [facility] Anion Gap 12 8 - 18 10/09/2022 12:41 PM [facility] BUN/Creatinine Ratio 36(H) 7 - 23 10/09/2022 12:41 PM [facility] Osmolality Calculated 291 270 - 300 mOsm/kg 10/09/2022 12:41 PM [facility] Albumin/Globulin Ratio 0.8(L) 1.1 - 2.3 10/09/2022 12:41 PM [facility] eGFR by CKD-EPI >90 >=90 mL/min/1.7 3 m2 10/09/2022 12:41 PM [facility] Blood BLOOD SPECIMEN / Unknown Venipuncture / Unknown 10/09/2022 12:04 PM CDT 10/09/2022 12:13 PM CDT Artur Mcgraw MD LAB - CHEMISTRY ORD ERABLES [facility] [address] [place] [address], [facility] [phone] * (ABNORMAL) CBC W/O DIFFERENTIAL (10/09/2022 12:04 PM CDT) WBC 9.4 3.5 - 10.5 10? 3 /uL 10/09/2022 12:29 PM [facility] RBC 4.03(L) 4.30 - 5.70 10? 6 /uL 10/09/2022 12:29 PM [facility] Hemoglobin 12.6 12.0 - 17.6 g/dL 10/09/2022 12:29 PM [facility] Hematocrit 38.6 35.2 - 51.7 % 10/09/2022 12:29 PM [facility] MCV 95.8 80.7 - 98.3 fL 10/09/2022 12:29 PM [facility] MCH 31.3 26.7 - 34.0 pg 10/09/2022 12:29 PM [facility] MCHC 32.6 30.8 - 35.9 g/dL 10/09/2022 12:29 PM [facility] RDW-SD 49.9 36.0 - 50.0 fL 10/09/2022 12:29 PM [facility] RDW-CV 14.3 11.2 - 14.8 % 10/09/2022 12:29 PM [facility] Platelet Count 181 150 - 400 10? 3 /uL 10/09/2022 12:29 PM [facility] MPV 10/09/2022 12:29 PM [facility] Comment:Unable to Report Immature Platelet Fraction 11.6(H) 1.1 - 6.2 % 10/09/2022 12:29 PM [facility] nRBC Absolute 0.00 0 10? 3 /uL 10/09/2022 12:29 PM [facility] nRBC Auto 0.0 0 /100 WBC 10/09/2022 12:29 PM [facility] Blood BLOOD SPECIMEN / Unknown Venipuncture / Unknown 10/09/2022 12:04 PM CDT 10/09/2022 12:13 PM CDT Artur Mcgraw MD LAB - HEMATOLOGY OR DERABLES Performing Organization Address [facility] Co de Phone Number [facility] [address] [place] [address], [facility] [phone] * (ABNORMAL) BLOOD GASES ART + COOX PANEL (10/09/2022 12:04 PM T) pH Arterial 7.42 7.35 - 7.45 pH 10/09/2022 12:19 PM [facility] pO2 Arterial 61(L) 80 - 100 mmHg 10/09/2022 12:19 PM [facility] pCO2 Arterial 41 35 - 45 mmHg 12:19 PM [facility] HCO3 Arterial 26.6 20.0 - 30.0 mmol/L 10/09/2022 12:19 PM [facility] BE Arterial 1.9 -2.0 - 2.0 mmol/L 10/09/2022 12:19 PM [facility] Oxyhemoglobin Arterial 89.0 % 10/09/2022 12:19 PM [facility] Dexoyhemoglobin (HHB) % 8.7 % 10/09/2022 12:19 PM [facility] Methemoglobin <0.8 0.0 - 2.0 % 10/09/2022 12:19 PM [facility] Carboxyhemoglobin 2.0 0.0 - 2.0 % 2022 12:19 PM [facility] O2 Content Arterial 16.3 Interpret within clinical context ml/dL 10/09/2022 12:19 PM [facility] Hemoglobin by COOX 13.0 12.0 - 17.6 g/dL 10/09/2022 12:19 PM [facility] O2 Saturation Arterial 91 90 - 100 % 10/09/2022 12:19 PM CDT [facility] FI O2 Arterial 35.0 % 10/09/2022 12:19 PM CDT [facility] Blood, arterial ARTERIAL BLOOD SPECIMEN / Unknown Arterial Puncture / Unknown 10/09/2022 12:04 PM CDT 10/09/2022 12:12 PM CDT Narrative [facility] - 10/09/2022 12:19 PM CDT Carboxyhemoglobin Normal Concentration: Non-smokers: 0-2%; Smokers: 0-9%; Toxic: >20% Artur Mcgraw MD LAB - BLOOD GASES O RDERABLES Performing Organization Address City/[facility]/ZIP Co de Phone Number [facility] [address] [place] [phone], [facility] [phone] * EKG 12-LEAD (10/09/2022 10:59 AM CDT) Ventricular Rate 125 BPM [facility] Atrial Rate 125 BPM [facility] P-R Interval 160 ms [facility] QRS Duration ms 80 ms [facility] Q-T Interval ms 298 ms [facility] QTC Calculation (Bezet) 430 ms [facility] Calculated P Boswell 61 degrees [facility] Calculated R Boswell 3 degrees [facility] Calculated T Boswell 91 degrees [facility] Interpretation EKG SINUS TACHYCARDIA POSSIBLE ANTEROSEPTAL INFARCT , AGE UNDETERMINED ABNORMAL ECG Confirmed by LINNEA BERNARD MD ([id number]) on 11/03/2022 12:58:18 PM [facility] 10/09/2022 10:5 9 AM CDT 11/03/2022 12:58 PM CDT Artur Mcgraw MD ECG ORDERABLES [facility] * (ABNORMAL) GLUCOSE - POINT OF CARE (10/09/2022 8:05 AM CDT) Glucose WB/POC 118(H) 70 - 115 mg/dL 10/09/2022 8:08 AM CDT [facility] Specimen Type Cap Fingerstick 2022 8:08 AM CDT [facility] Blood BLOOD SPECIMEN / Unknown 10/09/2022 8:05 AM CDT 10/09/2022 8:08 AM CDT Artur Mcgraw MD LAB - POINT OF CARE ORDERABLES [address] [address], [place] [phone] * (ABNORMAL) GLUCOSE - POINT OF CARE (10/09/2022 6:30 AM CDT) Glucose WB/POC 120(H) 70 - 115 mg/dL 10/09/2022 5:39 PM CDT [facility] Specimen Type Venous 10/09/2022 5:39 PM CDT [facility] Blood BLOOD SPECIMEN / Unknown 10/09/2022 6:30 AM CDT 10/09/2022 5:39 PM CDT Artur Mcgraw MD LAB - POINT OF CARE ORDERABLES Performing Organization Address City/[facility]/ZIP Co de Phone Number [address] [address], [place] [phone] * GLUCOSE - POINT OF CARE (10/08/2022 6:02 PM CDT) Glucose WB/POC 115 70 - 115 mg/dL 10/08/2022 6:03 PM CDT [facility] Specimen Type Cap Fingerstick 2022 6:03 PM CDT [facility] Blood BLOOD SPECIMEN / Unknown 10/08/2022 6:02 PM CDT 10/08/2022 6:03 PM CDT Artur Mcgraw MD LAB - POINT OF CARE ORDERABLES [address] [address], [place] [phone] * (ABNORMAL) GLUCOSE - POINT OF CARE (10/08/2022 11:45 AM CDT) Glucose WB/POC 125(H) 70 - 115 mg/dL 10/08/2022 11:46 AM CDT [facility] Specimen Type Cap Fingerstick 2022 11:46 AM CDT [facility] Blood BLOOD SPECIMEN / Unknown 10/08/2022 11:45 AM CDT 10/08/2022 11:46 AM CDT Artur Mcgraw MD LAB - POINT OF CARE ORDERABLES [address] [address], [place] [phone] * GLUCOSE - POINT OF CARE (10/08/2022 7:43 AM CDT) Glucose WB/POC 115 70 - 115 mg/dL 10/08/2022 7:44 AM CDT [facility] Specimen Type Cap Fingerstick 2022 7:44 AM CDT [facility] Blood BLOOD SPECIMEN / Unknown 10/08/2022 7:43 AM CDT 10/08/2022 7:44 AM CDT Artur Mcgraw MD LAB - POINT OF CARE ORDERABLES [address] [address], [place] [phone] * PHOSPHORUS BLOOD (10/08/2022 6:24 AM CDT) Phosphorus 3.2 2.8 - 5.1 mg/dL 10/08/2022 8:18 AM CDT [facility] Blood BLOOD SPECIMEN / Unknown Lab Venipuncture / Unknown 10/08/2022 6:24 AM CDT 10/08/2022 7:17 AM CDT Petra Fuentes MD LAB - CHEMISTRY [facility] [address] [place] [address], [facility] [phone] * MAGNESIUM BLOOD (10/08/2022 6:24 AM CDT) [facility] Magnesium 1.8 1.6 - 2.6 mg/dL 10/08/2022 8:18 AM [facility] Blood BLOOD SPECIMEN / Unknown Lab Venipuncture / Unknown 10/08/2022 6:24 AM CDT 10/08/2022 7:17 AM CDT Petra Fuentes MD LAB - CHEMISTRY [facility] [address] [place] [address], [facility] [phone] * (ABNORMAL) CBC W AUTO DIFFERENTIAL (10/08/2022 6:24 AM CDT) [facility] WBC 5.6 3.5 - 10.5 10? 3 /uL 10/08/2022 7:47 AM [facility] RBC 4.03(L) 4.30 - 5.70 10? 6 /uL 10/08/2022 7:47 AM [facility] Hemoglobin 12.5 12.0 - 17.6 g/dL 10/08/2022 7:47 AM [facility] Hematocrit 38.0 35.2 - 51.7 % 10/08/2022 7:47 AM [facility] MCV 94.3 80.7 - 98.3 fL 10/08/2022 7:47 AM [facility] MCH 31.0 26.7 - 34.0 pg 10/08/2022 7:47 AM [facility] MCHC 32.9 30.8 - 35.9 g/dL 10/08/2022 7:47 AM [facility] RDW-SD 48.9 36.0 - 50.0 fL 10/08/2022 7:47 AM [facility] RDW-CV 14.3 11.2 - 14.8 % 10/08/2022 7:47 AM [facility] Platelet Count 173 150 - 400 10? 3 /uL 10/08/2022 7:47 AM [facility] MPV 13.9(H) 9.4 - 12.9 fL 10/08/2022 7:47 AM [facility] Immature Platelet Fraction 14.0(H) 1.1 - 6.2 % 10/08/2022 7:47 AM [facility] nRBC Absolute 0.00 0 10? 3 /uL 10/08/2022 7:47 AM [facility] nRBC Auto 0.0 0 /100 WBC 10/08/2022 7:47 AM [facility] Neutrophils % 40.4 35.0 - 70.0 % 10/08/2022 7:47 AM [facility] Lymphocytes % 41.9 20.0 - 43.0 % 10/08/2022 7:47 AM [facility] Monocytes % 10.9 5.0 - 13.0 % 10/08/2022 7:47 AM [facility] Eosinophils % 6.1(H) 0.0 - 6.0 % 10/08/2022 7:47 AM [facility] Basophil % 0.5 0.0 - 2.0 % 10/08/2022 7:47 AM [facility] Neutrophils Absolute 2.27 1.60 - 7.00 10? 3 /uL 10/08/2022 7:47 AM [facility] Lymphocyte Absolute 2.35 1.10 - 3.90 10? 3 /uL 10/08/2022 7:47 AM [facility] Monocytes Absolute 0.61 0.26 - 1.07 10? 3 /uL 10/08/2022 7:47 AM [facility] Eosinophils Absolute 0.34 0.00 - 0.47 10? 3 /uL 10/08/2022 7:47 AM [facility] Basophils Absolute 0.03 0.00 - 0.08 10? 3 /uL 10/08/2022 7:47 AM [facility] Immature Granulocytes % 0.2 0.0 - 1.0 % 10/08/2022 7:47 AM [facility] Immature Granulocytes Absolute 0.01 10/08/2022 7:47 AM [facility] Blood BLOOD SPECIMEN / Unknown Lab Venipuncture / Unknown 10/08/2022 6:24 AM CDT 10/08/2022 7:17 AM CDT Petra Fuentes MD LAB - HEMATOLOGY ORD ERABLES [facility] [address] [place] [address], [facility] [phone] * (ABNORMAL) BASIC METABOLIC PANEL (CALCIUM TOTAL) (10/08/2022 6:24 AM CDT) BUN 19 7 - 26 mg/dL 10/08/2022 8:18 AM [facility] Creatinine 0.45(L) 0.71 - 1.16 mg/dL 10/08/2022 8:18 AM [facility] Sodium 138 136 - 145 mmol/L 10/08/2022 8:18 AM [facility] Potassium 4.3 3.5 - 4.5 mmol/L 10/08/2022 8:18 AM [facility] Chloride 105 98 - 107 mmol/L 10/08/2022 8:18 AM [facility] CO2 28 22 - 29 mmol/L 10/08/2022 8:18 AM [facility] Glucose 74 70 - 115 mg/dL 10/08/2022 8:18 AM [facility] Calcium 9.7 8.4 - 10.2 mg/dL 10/08/2022 8:18 AM [facility] Anion Gap 9 8 - 18 10/08/2022 8:18 AM [facility] BUN/Creatinine Ratio 42(H) 7 - 23 10/08/2022 8:18 AM [facility] Osmolality Calculated 287 270 - 300 mOsm/kg 10/08/2022 8:18 AM [facility] eGFR by CKD-EPI >90 >=90 mL/min/1.7 3 m2 10/08/2022 8:18 AM [facility] Blood BLOOD SPECIMEN / Unknown Lab Venipuncture / Unknown 10/08/2022 6:24 AM CDT 10/08/2022 7:17 AM CDT Petra Fuentes MD LAB - CHEMISTRY MARSHAL MEDEROS [address] [address], [place] [phone] * GLUCOSE - POINT OF CARE (10/08/2022 6:02 AM CDT) Glucose WB/POC 111 70 - 115 mg/dL 10/08/2022 6:07 AM CDT [facility] Specimen Type Cap Fingerstick 2022 6:07 AM CDT [facility] Blood BLOOD SPECIMEN / Unknown 10/08/2022 6:02 AM CDT 10/08/2022 6:07 AM CDT Artur Mcgraw MD LAB - POINT OF CARE ORDERABLES Performing Organization Address City/[facility]/ZIP Co de Phone Number [address] [address], [place] [phone] * GLUCOSE - POINT OF CARE (10/08/2022 12:15 AM CDT) Glucose WB/POC 107 70 - 115 mg/dL 10/08/2022 12:20 AM CDT [facility] Specimen Type Cap Fingerstick 2022 12:20 AM CDT [facility] Blood BLOOD SPECIMEN / Unknown 10/08/2022 12:15 AM CDT 10/08/2022 12:20 AM CDT Artur Mcgraw MD LAB - POINT OF CARE ORDERABLES [address] [address], [place] [phone] * GLUCOSE - POINT OF CARE (10/07/2022 5:29 PM CDT) Glucose WB/POC 91 70 - 115 mg/dL 10/07/2022 5:33 PM CDT [facility] Specimen Type Cap Fingerstick 2022 5:33 PM CDT [facility] Blood BLOOD SPECIMEN / Unknown 10/07/2022 5:29 PM CDT 10/07/2022 5:33 PM CDT Artur Mcgraw MD LAB - POINT OF CARE ORDERABLES Performing Organization Address City/[facility]/ZIP Co de Phone Number [address] [address], [place] [phone] * (ABNORMAL) GLUCOSE - POINT OF CARE (10/07/2022 11:58 AM CDT) Glucose WB/POC 118(H) 70 - 115 mg/dL 10/07/2022 12:05 PM CDT [facility] Specimen Type Cap Fingerstick 2022 12:05 PM CDT [facility] Blood BLOOD SPECIMEN / Unknown 10/07/2022 11:58 AM CDT 10/07/2022 12:05 PM CDT Artur Mcgraw MD LAB - POINT OF CARE ORDERABLES Performing Organization Address [facility]/ZIP Co de Phone Number [address] [address], [place] [phone] * GLUCOSE - POINT OF CARE (10/07/2022 6:22 AM CDT) Glucose WB/POC 114 70 - 115 mg/dL 10/07/2022 6:26 AM CDT [facility] Specimen Type Cap Fingerstick 2022 6:26 AM CDT [facility] Blood BLOOD SPECIMEN / Unknown 10/07/2022 6:22 AM CDT 10/07/2022 6:26 AM CDT Artur Mcgraw MD LAB - POINT OF CARE ORDERABLES [address] [address], [place] [phone] * GLUCOSE - POINT OF CARE (10/07/2022 12:17 AM CDT) Glucose WB/POC 102 70 - 115 mg/dL 10/07/2022 12:22 AM CDT [facility] Specimen Type Cap Fingerstick 2022 12:22 AM CDT [facility] Blood BLOOD SPECIMEN / Unknown 10/07/2022 12:17 AM CDT 10/07/2022 12:22 AM CDT Artur Mcgraw MD LAB - POINT OF CARE ORDERABLES [address] [address], [place] [phone] * (ABNORMAL) GLUCOSE - POINT OF CARE (10/06/2022 12:00 PM CDT) Glucose WB/POC 117(H) 70 - 115 mg/dL 10/06/2022 1:35 PM CDT [facility] Specimen Type Cap Fingerstick 2022 1:35 PM CDT [facility] Blood BLOOD SPECIMEN / Unknown 10/06/2022 12:00 PM CDT 10/06/2022 1:35 PM CDT Artur Mcgraw MD LAB - POINT OF CARE ORDERABLES [address] [address], [place] [phone] * PHOSPHORUS BLOOD (10/06/2022 11:58 AM CDT) Phosphorus 3.1 2.8 - 5.1 mg/dL 10/06/2022 1:22 PM CDT [facility] Blood BLOOD SPECIMEN / Unknown Lab Venipuncture / Unknown 10/06/2022 11:58 AM CDT 10/06/2022 12:57 PM CDT Petra Fuentes MD LAB - CHEMISTRY MARSHAL MEDEROS [facility] [address] [place] [address], [place] [phone] * MAGNESIUM BLOOD (10/06/2022 11:58 AM CDT) [facility] Magnesium 1.7 1.6 - 2.6 mg/dL 10/06/2022 1:22 PM T [facility] Blood BLOOD SPECIMEN / Unknown Lab Venipuncture / Unknown 10/06/2022 11:58 AM CDT 10/06/2022 12:57 PM CDT Petra Fuentes MD LAB - CHEMISTRY MARSHAL MEDEROS Performing Organization Address City/[facility]/ZIP Co de Phone Number [facility] [address] [place] [address], [place] [phone] * (ABNORMAL) CBC W AUTO DIFFERENTIAL (10/06/2022 11:58 AM CDT) [facility] WBC 5.6 3.5 - 10.5 10? 3 /uL 10/06/2022 1:31 PM [facility] RBC 4.18(L) 4.30 - 5.70 10? 6 /uL 10/06/2022 1:31 PM [facility] Hemoglobin 12.8 12.0 - 17.6 g/dL 10/06/2022 1:31 PM [facility] Hematocrit 39.8 35.2 - 51.7 % 10/06/2022 1:31 PM [facility] MCV 95.2 80.7 - 98.3 fL 10/06/2022 1:31 PM [facility] MCH 30.6 26.7 - 34.0 pg 10/06/2022 1:31 PM [facility] MCHC 32.2 30.8 - 35.9 g/dL 10/06/2022 1:31 PM [facility] RDW-SD 48.7 36.0 - 50.0 fL 10/06/2022 1:31 PM [facility] RDW-CV 14.0 11.2 - 14.8 % 10/06/2022 1:31 PM [facility] Platelet Count 190 150 - 400 10? 3 /uL 10/06/2022 1:31 PM [facility] MPV 10/06/2022 1:31 PM [facility] Comment:Unable to Report Immature Platelet Fraction 13.9(H) 1.1 - 6.2 % 10/06/2022 1:31 PM [facility] nRBC Absolute 0.00 0 10? 3 /uL 10/06/2022 1:31 PM [facility] nRBC Auto 0.0 0 /100 WBC 10/06/2022 1:31 PM [facility] Neutrophils % 40.6 35.0 - 70.0 % 10/06/2022 1:31 PM [facility] Lymphocytes % 42.8 20.0 - 43.0 % 10/06/2022 1:31 PM [facility] Monocytes % 11.3 5.0 - 13.0 % 10/06/2022 1:31 PM [facility] Eosinophils % 4.5 0.0 - 6.0 % 10/06/2022 1:31 PM [facility] Basophil % 0.4 0.0 - 2.0 % 10/06/2022 1:31 PM [facility] Neutrophils Absolute 2.26 1.60 - 7.00 10? 3 /uL 10/06/2022 1:31 PM [facility] Lymphocyte Absolute 2.38 1.10 - 3.90 10? 3 /uL 10/06/2022 1:31 PM [facility] Monocytes Absolute 0.63 0.26 - 1.07 10? 3 /uL 10/06/2022 1:31 PM [facility] Eosinophils Absolute 0.25 0.00 - 0.47 10? 3 /uL 10/06/2022 1:31 PM [facility] Basophils Absolute 0.02 0.00 - 0.08 10? 3 /uL 10/06/2022 1:31 PM [facility] Immature Granulocytes % 0.4 0.0 - 1.0 % 10/06/2022 1:31 PM [facility] Immature Granulocytes Absolute 0.02 10/06/2022 1:31 PM [facility] Blood BLOOD SPECIMEN / Unknown Lab Venipuncture / Unknown 10/06/2022 11:58 AM CDT 10/06/2022 12:57 PM CDT Petra Fuentes MD LAB - HEMATOLOGY ORD ERABLES [facility] [address] [place] [address], [facility] [phone] * (ABNORMAL) BASIC METABOLIC PANEL (CALCIUM TOTAL) (10/06/2022 11:58 AM CDT) BUN 15 7 - 26 mg/dL 10/06/2022 1:22 PM [facility] Creatinine 0.47(L) 0.71 - 1.16 mg/dL 10/06/2022 1:22 PM [facility] Sodium 141 136 - 145 mmol/L 10/06/2022 1:22 PM [facility] Potassium 4.4 3.5 - 4.5 mmol/L 10/06/2022 1:22 PM [facility] Chloride 105 98 - 107 mmol/L 10/06/2022 1:22 PM [facility] CO2 26 22 - 29 mmol/L 10/06/2022 1:22 PM [facility] Glucose 100 70 - 115 mg/dL 10/06/2022 1:22 PM [facility] Calcium 10.4(H) 8.4 - 10.2 mg/dL 10/06/2022 1:22 PM [facility] Anion Gap 14 8 - 18 10/06/2022 1:22 PM [facility] BUN/Creatinine Ratio 32(H) 7 - 23 10/06/2022 1:22 PM [facility] Osmolality Calculated 293 270 - 300 mOsm/kg 10/06/2022 1:22 PM [facility] eGFR by CKD-EPI >90 >=90 mL/min/1.7 3 m2 10/06/2022 1:22 PM [facility] Blood BLOOD SPECIMEN / Unknown Lab Venipuncture / Unknown 10/06/2022 11:58 AM CDT 10/06/2022 12:57 PM CDT Petra Fuentes MD LAB - CHEMISTRY MARSHAL MEDEROS [facility] [address] [place] [address], [place] [phone] * GLUCOSE - POINT OF CARE (10/06/2022 6:15 AM CDT) Glucose WB/POC 98 70 - 115 mg/dL 10/06/2022 6:20 AM CDT [facility] Specimen Type Cap Fingerstick 2022 6:20 AM CDT [facility] Blood BLOOD SPECIMEN / Unknown 10/06/2022 6:15 AM CDT 10/06/2022 6:20 AM CDT Artur Mcgraw MD LAB - POINT OF CARE ORDERABLES Performing Organization Address City/[facility]/ZIP Co de Phone Number [address] [address], [place] [phone] * GLUCOSE - POINT OF CARE (10/06/2022 12:34 AM CDT) Glucose WB/POC 109 70 - 115 mg/dL 10/06/2022 12:35 AM CDT [facility] Specimen Type Cap Fingerstick 2022 12:35 AM CDT [facility] Blood BLOOD SPECIMEN / Unknown 10/06/2022 12:34 AM CDT 10/06/2022 12:35 AM CDT Artur Mcgraw MD LAB - POINT OF CARE ORDERABLES [address] [address], [place] [phone] * (ABNORMAL) GLUCOSE - POINT OF CARE (10/05/2022 5:10 PM CDT) Glucose WB/POC 122(H) 70 - 115 mg/dL 10/05/2022 5:11 PM CDT [facility] Specimen Type Cap Fingerstick 2022 5:11 PM CDT [facility] Blood BLOOD SPECIMEN / Unknown 10/05/2022 5:10 PM CDT 10/05/2022 5:11 PM CDT Artur Mcgraw MD LAB - POINT OF CARE ORDERABLES [address] [address], [place] [phone] * GLUCOSE - POINT OF CARE (10/05/2022 12:13 PM CDT) Glucose WB/POC 102 70 - 115 mg/dL 10/05/2022 12:14 PM CDT [facility] Specimen Type Cap Fingerstick 2022 12:14 PM CDT [facility] Blood BLOOD SPECIMEN / Unknown 10/05/2022 12:13 PM CDT 10/05/2022 12:13 PM CDT Artur Mcgraw MD LAB - POINT OF CARE ORDERABLES Performing Organization Address City/[facility]/ZIP Co de Phone Number [address] [address], [place] [phone] * GLUCOSE - POINT OF CARE (10/05/2022 5:57 AM CDT) Glucose WB/POC 100 70 - 115 mg/dL 10/05/2022 6:00 AM CDT [facility] Specimen Type Cap Fingerstick 2022 6:00 AM CDT [facility] Blood BLOOD SPECIMEN / Unknown 10/05/2022 5:57 AM CDT 10/05/2022 5:59 AM CDT Petra Fuentes MD LAB - POINT OF CARE ORDERABLES [address] [address], [place] [phone] * GLUCOSE - POINT OF CARE (10/05/2022 12:53 AM CDT) Glucose WB/POC 105 70 - 115 mg/dL 10/05/2022 12:54 AM CDT [facility] Specimen Type Cap Fingerstick 2022 12:54 AM CDT [facility] Blood BLOOD SPECIMEN / Unknown 10/05/2022 12:53 AM CDT 10/05/2022 12:54 AM CDT Petra Fuentes MD LAB - POINT OF CARE ORDERABLES [address] [address], [facility] [phone] * PHOSPHORUS BLOOD (10/04/2022 8:37 AM CDT) Phosphorus 3.8 2.8 - 5.1 mg/dL 10/04/2022 9:33 AM CDT [facility] Blood BLOOD SPECIMEN / Unknown Lab Venipuncture / Unknown 10/04/2022 8:37 AM CDT 10/04/2022 8:54 AM CDT Petra Fuentes MD LAB - CHEMISTRY MARSHAL MEDEROS Performing Organization Address City/[facility]/ZIP Co de Phone Number [address] [address], [place] [phone] * MAGNESIUM BLOOD (10/04/2022 8:37 AM CDT) Magnesium 1.7 1.6 - 2.6 mg/dL 10/04/2022 9:33 AM CDT [facility] Blood BLOOD SPECIMEN / Unknown Lab Venipuncture / Unknown 10/04/2022 8:37 AM CDT 10/04/2022 8:54 AM CDT Petra Fuentes MD LAB - CHEMISTRY MARSHAL MEDEROS [place] [address] [place] [address] [phone] * (ABNORMAL) CBC W AUTO DIFFERENTIAL (10/04/2022 8:37 AM T) WBC 4.9 3.5 - 10.5 10? 3 /uL 10/04/2022 9:09 AM [facility] RBC 3.84(L) 4.30 - 5.70 10? 6 /uL 10/04/2022 9:09 AM [facility] Hemoglobin 11.9(L) 12.0 - 17.6 g/dL 10/04/2022 9:09 AM [facility] Hematocrit 36.9 35.2 - 51.7 % 10/04/2022 9:09 AM [facility] MCV 96.1 80.7 - 98.3 fL 10/04/2022 9:09 AM [facility] MCH 31.0 26.7 - 34.0 pg 10/04/2022 9:09 AM [facility] MCHC 32.2 30.8 - 35.9 g/dL 10/04/2022 9:09 AM [facility] RDW-SD 48.7 36.0 - 50.0 fL 10/04/2022 9:09 AM [facility] RDW-CV 13.9 11.2 - 14.8 % 10/04/2022 9:09 AM [facility] Platelet Count 173 150 - 400 10? 3 /uL 10/04/2022 9:09 AM [facility] MPV 12.4 9.4 - 12.9 fL 10/04/2022 9:09 AM [facility] nRBC Absolute 0.00 0 10? 3 /uL 10/04/2022 9:09 AM [facility] nRBC Auto 0.0 0 /100 WBC 10/04/2022 9:09 AM [facility] Neutrophils % 35.9 35.0 - 70.0 % 10/04/2022 9:09 AM [facility] Lymphocytes % 47.2(H) 20.0 - 43.0 % 10/04/2022 9:09 AM [facility] Monocytes % 10.1 5.0 - 13.0 % 10/04/2022 9:09 AM [facility] Eosinophils % 6.4(H) 0.0 - 6.0 % 10/04/2022 9:09 AM [facility] Basophil % 0.4 0.0 - 2.0 % 10/04/2022 9:09 AM [facility] Neutrophils Absolute 1.75 1.60 - 7.00 10? 3 /uL 10/04/2022 9:09 AM [facility] Lymphocyte Absolute 2.30 1.10 - 3.90 10? 3 /uL 10/04/2022 9:09 AM [facility] Monocytes Absolute 0.49 0.26 - 1.07 10? 3 /uL 10/04/2022 9:09 AM [facility] Eosinophils Absolute 0.31 0.00 - 0.47 10? 3 /uL 10/04/2022 9:09 AM [facility] Basophils Absolute 0.02 0.00 - 0.08 10? 3 /uL 10/04/2022 9:09 AM [facility] Immature Granulocytes % 0.0 0.0 - 1.0 % 10/04/2022 9:09 AM [facility] Immature Granulocytes Absolute 0.00 10/04/2022 9:09 AM [facility] Blood BLOOD SPECIMEN / Unknown Lab Venipuncture / Unknown 10/04/2022 8:37 AM CDT 10/04/2022 8:54 AM T Petra Fuentes MD LAB - HEMATOLOGY ORD ERABLES [facility] [address] [place] [address], [facility] [phone] * (ABNORMAL) BASIC METABOLIC PANEL (CALCIUM TOTAL) (10/04/2022 8:37 AM CDT) BUN 12 7 - 26 mg/dL 10/04/2022 9:33 AM [facility] Creatinine 0.47(L) 0.71 - 1.16 mg/dL 10/04/2022 9:33 AM [facility] Sodium 141 136 - 145 mmol/L 10/04/2022 9:33 AM [facility] Potassium 4.3 3.5 - 4.5 mmol/L 10/04/2022 9:33 AM [facility] Chloride 105 98 - 107 mmol/L 10/04/2022 9:33 AM [facility] CO2 26 22 - 29 mmol/L 10/04/2022 9:33 AM [facility] Glucose 117(H) 70 - 115 mg/dL 10/04/2022 9:33 AM [facility] Calcium 10.0 8.4 - 10.2 mg/dL 10/04/2022 9:33 AM [facility] Anion Gap 14 8 - 18 10/04/2022 9:33 AM [facility] BUN/Creatinine Ratio 26(H) 7 - 23 10/04/2022 9:33 AM [facility] Osmolality Calculated 293 270 - 300 mOsm/kg 10/04/2022 9:33 AM [facility] eGFR by CKD-EPI >90 >=90 mL/min/1.7 3 m2 10/04/2022 9:33 AM [facility] Blood BLOOD SPECIMEN / Unknown Lab Venipuncture / Unknown 10/04/2022 8:37 AM CDT 10/04/2022 8:54 AM CDT Petra Fuentes MD LAB - CHEMISTRY MARSHAL MEDEROS [facility] Organization Address City/State/ZIP Co de Phone Number [address] [address], [facility] [phone] * GLUCOSE - POINT OF CARE (10/04/2022 6:39 AM CDT) Glucose WB/POC 84 70 - 115 mg/dL 10/04/2022 6:40 AM [facility] Specimen Type Cap Fingerstick 2022 6:40 AM [facility] Blood BLOOD SPECIMEN / Unknown 10/04/2022 6:39 AM CDT 10/04/2022 6:40 AM CDT Petra Fuentes MD LAB - POINT OF CARE ORDERABLES [address] [address], [place] [phone] * GLUCOSE - POINT OF CARE (10/04/2022 12:16 AM CDT) Glucose WB/POC 95 70 - 115 mg/dL 10/04/2022 12:17 AM CDT [facility] Specimen Type Cap Fingerstick 2022 12:17 AM CDT [facility] Blood BLOOD SPECIMEN / Unknown 10/04/2022 12:16 AM CDT 10/04/2022 12:17 AM CDT Petra Fuentes MD LAB - POINT OF CARE ORDERABLES Performing Organization Address City/[facility]/ZIP Co de Phone Number [address] [address], [place] [phone] * GLUCOSE - POINT OF CARE (10/03/2022 6:26 PM CDT) Glucose WB/POC 105 70 - 115 mg/dL 10/03/2022 6:31 PM CDT [facility] Specimen Type Cap Fingerstick 2022 6:31 PM CDT [facility] Blood BLOOD SPECIMEN / Unknown 10/03/2022 6:26 PM CDT 10/03/2022 6:31 PM CDT Petra Fuentes MD LAB - POINT OF CARE ORDERABLES [address] [address], [place] [phone] * GLUCOSE - POINT OF CARE (10/03/2022 1:00 PM CDT) Glucose WB/POC 94 70 - 115 mg/dL 10/03/2022 1:05 PM CDT [facility] Specimen Type Cap Fingerstick 2022 1:05 PM CDT [facility] Blood BLOOD SPECIMEN / Unknown 10/03/2022 1:00 PM CDT 10/03/2022 1:05 PM CDT Petra Fuentes MD LAB - POINT OF CARE ORDERABLES [address] [address], [place] [phone] * GLUCOSE - POINT OF CARE (10/03/2022 12:00 PM CDT) Glucose WB/POC 95 70 - 115 mg/dL 10/04/2022 6:50 AM CDT [facility] Specimen Type Cap Fingerstick 2022 6:50 AM CDT [facility] Blood BLOOD SPECIMEN / Unknown 10/03/2022 12:00 PM CDT 10/04/2022 6:50 AM CDT Petra Fuentes MD LAB - POINT OF CARE ORDERABLES [address] [address], [place] [phone] * GLUCOSE - POINT OF CARE (10/03/2022 8:10 AM CDT) Glucose WB/POC 104 70 - 115 mg/dL 10/03/2022 8:19 AM CDT [facility] Specimen Type Cap Fingerstick 2022 8:19 AM CDT [facility] Blood BLOOD SPECIMEN / Unknown 10/03/2022 8:10 AM CDT 10/03/2022 8:19 AM CDT Petra Fuentes MD LAB - POINT OF CARE ORDERABLES [address] [address], [place] [phone] * GLUCOSE - POINT OF CARE (10/03/2022 6:05 AM CDT) Glucose WB/POC 111 70 - 115 mg/dL 10/03/2022 6:06 AM CDT [facility] Specimen Type Cap Fingerstick 2022 6:06 AM CDT [facility] Blood BLOOD SPECIMEN / Unknown 10/03/2022 6:05 AM CDT 10/03/2022 6:06 AM CDT Petra Fuentes MD LAB - POINT OF CARE ORDERABLES [address] [address], [place] [phone] * GLUCOSE - POINT OF CARE (10/03/2022 12:23 AM CDT) Glucose WB/POC 84 70 - 115 mg/dL 10/03/2022 12:24 AM CDT [facility] Specimen Type Cap Fingerstick 2022 12:24 AM CDT [facility] Blood BLOOD SPECIMEN / Unknown 10/03/2022 12:23 AM CDT 10/03/2022 12:24 AM CDT Petra Fuentes MD LAB - POINT OF CARE ORDERABLES [address] [address], [place] [phone] * (ABNORMAL) GLUCOSE - POINT OF CARE (10/02/2022 6:33 PM CDT) Glucose WB/POC 119(H) 70 - 115 mg/dL 10/02/2022 6:38 PM CDT [facility] Specimen Type Cap Fingerstick 2022 6:38 PM CDT [facility] Blood BLOOD SPECIMEN / Unknown 10/02/2022 6:33 PM CDT 10/02/2022 6:38 PM CDT Petra Fuentes MD LAB - POINT OF CARE ORDERABLES [address] [address], [place] [phone] * GLUCOSE - POINT OF CARE (10/02/2022 2:53 PM CDT) Glucose WB/POC 108 70 - 115 mg/dL 10/02/2022 2:58 PM CDT [facility] Specimen Type Cap Fingerstick 2022 2:58 PM CDT [facility] Blood BLOOD SPECIMEN / Unknown 10/02/2022 2:53 PM CDT 10/02/2022 2:58 PM CDT Petra Fuentes MD LAB - POINT OF CARE ORDERABLES Performing Organization Address City/[facility]/ZIP Co de Phone Number [address] [address], [place] [phone] * GLUCOSE - POINT OF CARE (10/02/2022 11:45 AM CDT) Glucose WB/POC 110 70 - 115 mg/dL 10/02/2022 11:51 AM CDT [facility] Specimen Type Cap Fingerstick 2022 11:51 AM CDT [facility] Blood BLOOD SPECIMEN / Unknown 10/02/2022 11:45 AM CDT 10/02/2022 11:50 AM CDT Petra Fuentes MD LAB - POINT OF CARE ORDERABLES [address] [address], [place] [phone] * PHOSPHORUS BLOOD (10/02/2022 10:15 AM CDT) Phosphorus 3.6 2.8 - 5.1 mg/dL 10/02/2022 1:09 PM CDT [facility] Blood BLOOD SPECIMEN / Unknown Lab Venipuncture / Unknown 10/02/2022 10:15 AM CDT 10/02/2022 12:28 PM CDT Petra Fuentes MD LAB - CHEMISTRY MARSHAL MEDEROS [address] [address], [place] [phone] * MAGNESIUM BLOOD (10/02/2022 10:15 AM CDT) Magnesium 1.7 1.6 - 2.6 mg/dL 10/02/2022 1:09 PM T [facility] Blood BLOOD SPECIMEN / Unknown Lab Venipuncture / Unknown 10/02/2022 10:15 AM CDT 10/02/2022 12:28 PM CDT Petra Fuentes MD LAB - CHEMISTRY MARSHAL MEDEROS Performing Organization Address [facility]/ZIP Co de Phone Number [address] [address], [place] [phone] * (ABNORMAL) CBC W AUTO DIFFERENTIAL (10/02/2022 10:15 AM CDT) WBC 5.6 3.5 - 10.5 10? 3 /uL 10/02/2022 12:46 PM [facility] RBC 3.60(L) 4.30 - 5.70 10? 6 /uL 10/02/2022 12:46 PM [facility] Hemoglobin 11.3(L) 12.0 - 17.6 g/dL 10/02/2022 12:46 PM [facility] Hematocrit 34.3(L) 35.2 - 51.7 % 10/02/2022 12:46 PM [facility] MCV 95.3 80.7 - 98.3 fL 10/02/2022 12:46 PM T [facility] MCH 31.4 26.7 - 34.0 pg 10/02/2022 12:46 PM [facility] MCHC 32.9 30.8 - 35.9 g/dL 10/02/2022 12:46 PM [facility] RDW-SD 48.4 36.0 - 50.0 fL 10/02/2022 12:46 PM [facility] RDW-CV 13.9 11.2 - 14.8 % 10/02/2022 12:46 PM [facility] Platelet Count 182 150 - 400 10? 3 /uL 10/02/2022 12:46 PM [facility] MPV 12.6 9.4 - 12.9 fL 10/02/2022 12:46 PM [facility] nRBC Absolute 0.00 0 10? 3 /uL 10/02/2022 12:46 PM [facility] nRBC Auto 0.0 0 /100 WBC 10/02/2022 12:46 PM [facility] Neutrophils % 47.0 35.0 - 70.0 % 10/02/2022 12:46 PM [facility] Lymphocytes % 38.0 20.0 - 43.0 % 10/02/2022 12:46 PM [facility] Monocytes % 8.9 5.0 - 13.0 % 10/02/2022 12:46 PM [facility] Eosinophils % 5.4 0.0 - 6.0 % 10/02/2022 12:46 PM [facility] Basophil % 0.5 0.0 - 2.0 % 10/02/2022 12:46 PM [facility] Neutrophils Absolute 2.63 1.60 - 7.00 10? 3 /uL 10/02/2022 12:46 PM [facility] Lymphocyte Absolute 2.13 1.10 - 3.90 10? 3 /uL 10/02/2022 12:46 PM [facility] Monocytes Absolute 0.50 0.26 - 1.07 10? 3 /uL 10/02/2022 12:46 PM [facility] Eosinophils Absolute 0.30 0.00 - 0.47 10? 3 /uL 10/02/2022 12:46 PM [facility] Basophils Absolute 0.03 0.00 - 0.08 10? 3 /uL 10/02/2022 12:46 PM [facility] Immature Granulocytes % 0.2 0.0 - 1.0 % 10/02/2022 12:46 PM [facility] Immature Granulocytes Absolute 0.01 10/02/2022 12:46 PM [facility] Blood BLOOD SPECIMEN / Unknown Lab Venipuncture / Unknown 10/02/2022 10:15 AM CDT 10/02/2022 12:29 PM CDT Petra Fuentes MD LAB - HEMATOLOGY ORD ERABLES [facility] [address] [place] [address], [facility] [phone] * (ABNORMAL) BASIC METABOLIC PANEL (CALCIUM TOTAL) (10/02/2022 10:15 AM CDT) BUN 14 7 - 26 mg/dL 10/02/2022 1:09 PM [facility] Creatinine 0.43(L) 0.71 - 1.16 mg/dL 10/02/2022 1:09 PM [facility] Sodium 142 136 - 145 mmol/L 10/02/2022 1:09 PM [facility] Potassium 4.2 3.5 - 4.5 mmol/L 10/02/2022 1:09 PM [facility] Chloride 101 98 - 107 mmol/L 10/02/2022 1:09 PM [facility] CO2 27 22 - 29 mmol/L 10/02/2022 1:09 PM [facility] Glucose 104 70 - 115 mg/dL 10/02/2022 1:09 PM [facility] Calcium 10.0 8.4 - 10.2 mg/dL 10/02/2022 1:09 PM [facility] Anion Gap 18 8 - 18 10/02/2022 1:09 PM [facility] BUN/Creatinine Ratio 33(H) 7 - 23 10/02/2022 1:09 PM [facility] Osmolality Calculated 295 270 - 300 mOsm/kg 10/02/2022 1:09 PM [facility] eGFR by CKD-EPI >90 >=90 mL/min/1.7 3 m2 10/02/2022 1:09 PM [facility] Blood BLOOD SPECIMEN / Unknown Lab Venipuncture / Unknown 10/02/2022 10:15 AM CDT 10/02/2022 12:28 PM CDT Petra Fuentes MD LAB - CHEMISTRY [facility] [address] [address], [place] [phone] * GLUCOSE - POINT OF CARE (10/02/2022 6:24 AM CDT) Glucose WB/POC 99 70 - 115 mg/dL 10/02/2022 6:29 AM CDT [facility] Specimen Type Cap Fingerstick 2022 6:29 AM CDT [facility] Blood BLOOD SPECIMEN / Unknown 10/02/2022 6:24 AM CDT 10/02/2022 6:29 AM CDT Petra Fuentes MD LAB - POINT OF CARE ORDERABLES Performing Organization Address City/[facility]/ZIP Co de Phone Number [address] [address], [place] [phone] * GLUCOSE - POINT OF CARE (10/02/2022 12:25 AM CDT) Glucose WB/POC 107 70 - 115 mg/dL 10/02/2022 1:05 AM CDT [facility] Specimen Type Cap Fingerstick 2022 1:05 AM CDT [facility] Blood BLOOD SPECIMEN / Unknown 10/02/2022 12:25 AM CDT 10/02/2022 1:05 AM CDT Petra Fuentes MD LAB - POINT OF CARE ORDERABLES [address] [address], [place] [phone] * GLUCOSE - POINT OF CARE (10/01/2022 5:38 PM CDT) Glucose WB/POC 96 70 - 115 mg/dL 10/01/2022 5:39 PM CDT [facility] Specimen Type Cap Fingerstick 2022 5:39 PM CDT [facility] Blood BLOOD SPECIMEN / Unknown 10/01/2022 5:38 PM CDT 10/01/2022 5:39 PM CDT Petra Fuentes MD LAB - POINT OF CARE ORDERABLES [address] [address], [place] [phone] * (ABNORMAL) GLUCOSE - POINT OF CARE (10/01/2022 12:00 PM CDT) Glucose WB/POC 131(H) 70 - 115 mg/dL 10/01/2022 12:05 PM CDT [facility] Specimen Type Cap Fingerstick 2022 12:05 PM CDT [facility] Blood BLOOD SPECIMEN / Unknown 10/01/2022 12:00 PM CDT 10/01/2022 12:05 PM CDT Petra Fuentes MD LAB - POINT OF CARE ORDERABLES Performing Organization Address City/[facility]/ZIP Co de Phone Number [address] [address], [place] [phone] * (ABNORMAL) GLUCOSE - POINT OF CARE (10/01/2022 8:04 AM CDT) Glucose WB/POC 129(H) 70 - 115 mg/dL 10/01/2022 8:06 AM CDT [facility] Specimen Type Cap Fingerstick 2022 8:06 AM CDT [facility] Blood BLOOD SPECIMEN / Unknown 10/01/2022 8:04 AM CDT 10/01/2022 8:06 AM CDT Petra Fuentes MD LAB - POINT OF CARE ORDERABLES [address] [address], [place] [phone] * GLUCOSE - POINT OF CARE (10/01/2022 6:01 AM CDT) Glucose WB/POC 96 70 - 115 mg/dL 10/01/2022 6:06 AM CDT [facility] Specimen Type Cap Fingerstick 2022 6:06 AM CDT [facility] Blood BLOOD SPECIMEN / Unknown 10/01/2022 6:01 AM CDT 10/01/2022 6:06 AM CDT Petra Fuentes MD LAB - POINT OF CARE ORDERABLES [facility] [address] [place] [address], [place] [phone] * GLUCOSE - POINT OF CARE (09/30/2022 9:44 PM CDT) Glucose WB/POC 105 70 - 115 mg/dL 09/30/2022 9:51 PM CDT [facility] Specimen Type Cap Fingerstick 2022 9:51 PM CDT [facility] Blood BLOOD SPECIMEN / Unknown 09/30/2022 9:44 PM CDT 09/30/2022 9:51 PM CDT Petra Fuentes MD LAB - POINT OF CARE ORDERABLES [facility] [address] [place] [address], [place] [phone] * GLUCOSE - POINT OF CARE (09/30/2022 12:08 PM CDT) Glucose WB/POC 101 70 - 115 mg/dL 09/30/2022 12:10 PM CDT [facility] Specimen Type Cap Fingerstick 2022 12:10 PM CDT [facility] Blood BLOOD SPECIMEN / Unknown 09/30/2022 12:08 PM CDT 09/30/2022 12:10 PM CDT Petra Fuentes MD LAB - POINT OF CARE ORDERABLES [address] [address], [facility] [phone] * PHOSPHORUS BLOOD (09/30/2022 7:08 AM CDT) Phosphorus 3.5 2.8 - 5.1 mg/dL 09/30/2022 8:53 AM CDT [facility] Blood BLOOD SPECIMEN / Unknown Lab Venipuncture / Unknown 09/30/2022 7:08 AM CDT 09/30/2022 8:26 AM CDT Petra Fuentes MD LAB - CHEMISTRY MARSHAL MEDEROS Performing Organization Address City/[facility]/ZIP Co de Phone Number [address] [address], [facility] [phone] * MAGNESIUM BLOOD (09/30/2022 7:08 AM CDT) Pathologist [facility] Magnesium 1.8 1.6 - 2.6 mg/dL 09/30/2022 8:53 AM CDT [facility] Blood BLOOD SPECIMEN / Unknown Lab Venipuncture / Unknown 09/30/2022 7:08 AM CDT 09/30/2022 8:26 AM CDT Petra Fuentes MD LAB - CHEMISTRY MARSHAL MEDEROS [address] [address], [facility] [phone] * (ABNORMAL) CBC W AUTO DIFFERENTIAL (09/30/2022 7:08 AM CDT) WBC 7.5 3.5 - 10.5 10? 3 /uL 09/30/2022 8:59 AM CDT [facility] RBC 3.57(L) 4.30 - 5.70 10? 6 /uL 09/30/2022 8:59 AM CDT [facility] Hemoglobin 11.1(L) 12.0 - 17.6 g/dL 09/30/2022 8:59 AM [facility] Hematocrit 34.4(L) 35.2 - 51.7 % 09/30/2022 8:59 AM [facility] MCV 96.4 80.7 - 98.3 fL 09/30/2022 8:59 AM [facility] MCH 31.1 26.7 - 34.0 pg 09/30/2022 8:59 AM [facility] MCHC 32.3 30.8 - 35.9 g/dL 09/30/2022 8:59 AM [facility] RDW-SD 47.8 36.0 - 50.0 fL 09/30/2022 8:59 AM [facility] RDW-CV 13.6 11.2 - 14.8 % 09/30/2022 8:59 AM [facility] Platelet Count 196 150 - 400 10? 3 /uL 09/30/2022 8:59 AM [facility] MPV 12.2 9.4 - 12.9 fL 09/30/2022 8:59 AM [facility] nRBC Absolute 0.00 0 10? 3 /uL 09/30/2022 8:59 AM [facility] nRBC Auto 0.0 0 /100 WBC 09/30/2022 8:59 AM [facility] Neutrophils % 55.6 35.0 - 70.0 % 09/30/2022 8:59 AM [facility] Lymphocytes % 32.5 20.0 - 43.0 % 09/30/2022 8:59 AM [facility] Monocytes % 6.9 5.0 - 13.0 % 09/30/2022 8:59 AM [facility] Eosinophils % 4.4 0.0 - 6.0 % 09/30/2022 8:59 AM [facility] Basophil % 0.3 0.0 - 2.0 % 09/30/2022 8:59 AM [facility] Neutrophils Absolute 4.17 1.60 - 7.00 10? 3 /uL 09/30/2022 8:59 AM [facility] Lymphocyte Absolute 2.44 1.10 - 3.90 10? 3 /uL 09/30/2022 8:59 AM T [facility] Monocytes Absolute 0.52 0.26 - 1.07 10? 3 /uL 09/30/2022 8:59 AM [facility] Eosinophils Absolute 0.33 0.00 - 0.47 10? 3 /uL 09/30/2022 8:59 AM T [facility] Basophils Absolute 0.02 0.00 - 0.08 10? 3 /uL 09/30/2022 8:59 AM [facility] Immature Granulocytes % 0.3 0.0 - 1.0 % 09/30/2022 8:59 AM [facility] Immature Granulocytes Absolute 0.02 09/30/2022 8:59 AM [facility] Blood BLOOD SPECIMEN / Unknown Lab Venipuncture / Unknown 09/30/2022 7:08 AM CDT 09/30/2022 8:26 AM T Petra Fuentes MD LAB - HEMATOLOGY ORD ERABLES [facility] [address] [place] [address], [facility] [phone] * (ABNORMAL) BASIC METABOLIC PANEL (CALCIUM TOTAL) (09/30/2022 7:08 AM CDT) BUN 14 7 - 26 mg/dL 09/30/2022 8:53 AM [facility] Creatinine 0.48(L) 0.71 - 1.16 mg/dL 09/30/2022 8:53 AM [facility] Sodium 139 136 - 145 mmol/L 09/30/2022 8:53 AM [facility] Potassium 4.1 3.5 - 4.5 mmol/L 09/30/2022 8:53 AM [facility] Chloride 103 98 - 107 mmol/L 09/30/2022 8:53 AM [facility] CO2 27 22 - 29 mmol/L 09/30/2022 8:53 AM [facility] Glucose 95 70 - 115 mg/dL 09/30/2022 8:53 AM [facility] Calcium 10.1 8.4 - 10.2 mg/dL 09/30/2022 8:53 AM T [facility] Anion Gap 13 8 - 18 09/30/2022 8:53 AM [facility] BUN/Creatinine Ratio 29(H) 7 - 23 09/30/2022 8:53 AM T [facility] Osmolality Calculated 288 270 - 300 mOsm/kg 09/30/2022 8:53 AM T [facility] eGFR by CKD-EPI >90 >=90 mL/min/1.7 3 m2 09/30/2022 8:53 AM [facility] Blood BLOOD SPECIMEN / Unknown Lab Venipuncture / Unknown 09/30/2022 7:08 AM CDT 09/30/2022 8:26 AM CDT Petra Fuentes MD LAB - CHEMISTRY ORDE RABLES [address] [address], [place] [phone] * GLUCOSE - POINT OF CARE (09/30/2022 6:28 AM CDT) Glucose WB/POC 111 70 - 115 mg/dL 09/30/2022 6:33 AM T [facility] Specimen Type Cap Fingerstick 2022 6:33 AM T [facility] Blood BLOOD SPECIMEN / Unknown 09/30/2022 6:28 AM CDT 09/30/2022 6:33 AM CDT Petra Fuentes MD LAB - POINT OF CARE ORDERABLES [address] [address], [place] [phone] * GLUCOSE - POINT OF CARE (09/30/2022 12:28 AM CDT) Glucose WB/POC 110 70 - 115 mg/dL 09/30/2022 12:33 AM T [facility] Specimen Type Cap Fingerstick 2022 12:33 AM CDT [facility] Blood BLOOD SPECIMEN / Unknown 09/30/2022 12:28 AM CDT 09/30/2022 12:33 AM CDT Narrative Authorizing Provider Result Hallie Fuentes MD LAB - POINT OF CARE ORDERABLES [facility] [address] [place] [address], [place] [phone] * GLUCOSE - POINT OF CARE (09/29/2022 8:37 PM CDT) Glucose WB/POC 113 70 - 115 mg/dL 09/29/2022 8:42 PM CDT [facility] Specimen Type Cap Fingerstick 2022 8:42 PM CDT [facility] Blood BLOOD SPECIMEN / Unknown 09/29/2022 8:37 PM CDT 09/29/2022 8:42 PM CDT Petra Fuentes MD LAB - POINT OF CARE ORDERABLES [address] [address], [place] [phone] * GLUCOSE - POINT OF CARE (09/29/2022 5:02 PM CDT) Glucose WB/POC 111 70 - 115 mg/dL 09/29/2022 5:08 PM CDT [facility] Specimen Type Cap Fingerstick 2022 5:08 PM CDT [facility] Blood BLOOD SPECIMEN / Unknown 09/29/2022 5:02 PM CDT 09/29/2022 5:08 PM CDT Petra Fuentes MD LAB - POINT OF CARE ORDERABLES [facility] [address] [place] [address], [place] [phone] * GLUCOSE - POINT OF CARE (09/29/2022 11:00 AM CDT) Glucose WB/POC 88 70 - 115 mg/dL 09/29/2022 11:15 AM CDT [facility] Specimen Type Cap Fingerstick 2022 11:15 AM CDT [facility] Blood BLOOD SPECIMEN / Unknown 09/29/2022 11:00 AM CDT 09/29/2022 11:15 AM CDT Petra Fuentes MD LAB - POINT OF CARE ORDERABLES [address] [address], [place] [phone] * GLUCOSE - POINT OF CARE (09/29/2022 6:19 AM CDT) Glucose WB/POC 108 70 - 115 mg/dL 09/29/2022 6:23 AM CDT [facility] Specimen Type Cap Fingerstick 2022 6:23 AM CDT [facility] Blood BLOOD SPECIMEN / Unknown 09/29/2022 6:19 AM CDT 09/29/2022 6:23 AM CDT Petra Fuentes MD LAB - POINT OF CARE ORDERABLES [address] [address], [place] [phone] * GLUCOSE - POINT OF CARE (09/29/2022 12:19 AM CDT) Glucose WB/POC 77 70 - 115 mg/dL 09/29/2022 12:21 AM CDT [facility] Specimen Type Cap Fingerstick 2022 12:21 AM CDT [facility] Blood BLOOD SPECIMEN / Unknown 09/29/2022 12:19 AM CDT 09/29/2022 12:21 AM CDT Petra Fuentes MD LAB - POINT OF CARE ORDERABLES [facility] [address] [address], [place] [phone] * GLUCOSE - POINT OF CARE (09/28/2022 5:45 PM CDT) Glucose WB/POC 103 70 - 115 mg/dL 09/28/2022 5:45 PM CDT [facility] Specimen Type Cap Fingerstick 2022 5:45 PM CDT [facility] Blood BLOOD SPECIMEN / Unknown 09/28/2022 5:45 PM CDT 09/28/2022 5:45 PM CDT Petra Fuentes MD LAB - POINT OF CARE ORDERABLES [address] [address], [facility] [phone] * GLUCOSE - POINT OF CARE (09/28/2022 11:50 AM CDT) Glucose WB/POC 84 70 - 115 mg/dL 09/28/2022 11:51 AM CDT [facility] Specimen Type Cap Fingerstick 2022 11:51 AM CDT [facility] Blood BLOOD SPECIMEN / Unknown 09/28/2022 11:50 AM CDT 09/28/2022 11:51 AM CDT Petra Fuentes MD LAB - POINT OF CARE ORDERABLES [address] [address], [place] [phone] * GLUCOSE - POINT OF CARE (09/28/2022 7:42 AM CDT) Glucose WB/POC 115 70 - 115 mg/dL 09/28/2022 7:43 AM CDT [facility] Specimen Type Cap Fingerstick 2022 7:43 AM CDT [facility] Blood BLOOD SPECIMEN / Unknown 09/28/2022 7:42 AM CDT 09/28/2022 7:42 AM CDT Petra Fuentes MD LAB - POINT OF CARE ORDERABLES [facility] [address] [place] [address], [facility] [phone] * (ABNORMAL) CBC W AUTO DIFFERENTIAL (09/28/2022 6:51 AM CDT) WBC 4.8 3.5 - 10.5 10? 3 /uL 09/28/2022 7:39 AM [facility] RBC 3.61(L) 4.30 - 5.70 10? 6 /uL 09/28/2022 7:39 AM [facility] Hemoglobin 11.1(L) 12.0 - 17.6 g/dL 09/28/2022 7:39 AM [facility] Hematocrit 34.5(L) 35.2 - 51.7 % 09/28/2022 7:39 AM [facility] MCV 95.6 80.7 - 98.3 fL 09/28/2022 7:39 AM [facility] MCH 30.7 26.7 - 34.0 pg 09/28/2022 7:39 AM [facility] MCHC 32.2 30.8 - 35.9 g/dL 09/28/2022 7:39 AM [facility] RDW-SD 47.5 36.0 - 50.0 fL 09/28/2022 7:39 AM [facility] RDW-CV 13.4 11.2 - 14.8 % 09/28/2022 7:39 AM [facility] Platelet Count 206 150 - 400 10? 3 /uL 09/28/2022 7:39 AM [facility] MPV 11.7 9.4 - 12.9 fL 09/28/2022 7:39 AM [facility] nRBC Absolute 0.00 0 10? 3 /uL 09/28/2022 7:39 AM [facility] nRBC Auto 0.0 0 /100 WBC 09/28/2022 7:39 AM [facility] Neutrophils % 41.7 35.0 - 70.0 % 09/28/2022 7:39 AM [facility] Lymphocytes % 44.0(H) 20.0 - 43.0 % 09/28/2022 7:39 AM [facility] Monocytes % 7.4 5.0 - 13.0 % 09/28/2022 7:39 AM [facility] Eosinophils % 6.3(H) 0.0 - 6.0 % 09/28/2022 7:39 AM [facility] Basophil % 0.6 0.0 - 2.0 % 09/28/2022 7:39 AM [facility] Neutrophils Absolute 1.98 1.60 - 7.00 10? 3 /uL 09/28/2022 7:39 AM [facility] Lymphocyte Absolute 2.09 1.10 - 3.90 10? 3 /uL 09/28/2022 7:39 AM [facility] Monocytes Absolute 0.35 0.26 - 1.07 10? 3 /uL 09/28/2022 7:39 AM [facility] Eosinophils Absolute 0.30 0.00 - 0.47 10? 3 /uL 09/28/2022 7:39 AM [facility] Basophils Absolute 0.03 0.00 - 0.08 10? 3 /uL 09/28/2022 7:39 AM [facility] Immature Granulocytes % 0.0 0.0 - 1.0 % 09/28/2022 7:39 AM [facility] Immature Granulocytes Absolute 0.00 09/28/2022 7:39 AM [facility] Blood BLOOD SPECIMEN / Unknown Lab Venipuncture / Unknown 09/28/2022 6:51 AM CDT 09/28/2022 7:28 AM CDT Petra Fuentes MD LAB - HEMATOLOGY ORD ERABLES [facility] [address] [place] [address], [facility] [phone] * PHOSPHORUS BLOOD (09/28/2022 6:50 AM CDT) [facility] Signature Phosphorus 3.3 2.8 - 5.1 mg/dL 09/28/2022 8:02 AM CDT [facility] Blood BLOOD SPECIMEN / Unknown Lab Venipuncture / Unknown 09/28/2022 6:50 AM CDT 09/28/2022 7:28 AM CDT Petra Fuentes MD LAB - CHEMISTRY MARSHAL MEDEROS [address] [address], [facility] [phone] * MAGNESIUM BLOOD (09/28/2022 6:50 AM CDT) Magnesium 1.8 1.6 - 2.6 mg/dL 09/28/2022 8:02 AM [facility] Blood BLOOD SPECIMEN / Unknown Lab Venipuncture / Unknown 09/28/2022 6:50 AM CDT 09/28/2022 7:28 AM CDT Petra Fuentes MD LAB - CHEMISTRY MARSHAL MEDEROS [address] [address], [facility] [phone] * (ABNORMAL) BASIC METABOLIC PANEL (CALCIUM TOTAL) (09/28/2022 6:50 AM CDT) BUN 11 7 - 26 mg/dL 09/28/2022 8:02 AM [facility] Creatinine 0.44(L) 0.71 - 1.16 mg/dL 09/28/2022 8:02 AM [facility] Sodium 139 136 - 145 mmol/L 09/28/2022 8:02 AM [facility] Potassium 4.5 3.5 - 4.5 mmol/L 09/28/2022 8:02 AM [facility] Chloride 102 98 - 107 mmol/L 09/28/2022 8:02 AM [facility] CO2 28 22 - 29 mmol/L 09/28/2022 8:02 AM [facility] Glucose 98 70 - 115 mg/dL 09/28/2022 8:02 AM [facility] Calcium 10.0 8.4 - 10.2 mg/dL 09/28/2022 8:02 AM [facility] Anion Gap 14 8 - 18 09/28/2022 8:02 AM [facility] BUN/Creatinine Ratio 25(H) 7 - 23 09/28/2022 8:02 AM [facility] Osmolality Calculated 287 270 - 300 mOsm/kg 09/28/2022 8:02 AM [facility] eGFR by CKD-EPI >90 >=90 mL/min/1.7 3 m2 09/28/2022 8:02 AM [facility] Blood BLOOD SPECIMEN / Unknown Lab Venipuncture / Unknown 09/28/2022 6:50 AM CDT 09/28/2022 7:28 AM CDT Petra Fuentes MD LAB - CHEMISTRY MARSHAL MEDEROS [address] [address], [facility] [phone] * GLUCOSE - POINT OF CARE (09/28/2022 6:03 AM CDT) Glucose WB/POC 92 70 - 115 mg/dL 09/28/2022 6:04 AM [facility] Specimen Type Cap Fingerstick 2022 6:04 AM T [facility] Blood BLOOD SPECIMEN / Unknown 09/28/2022 6:03 AM CDT 09/28/2022 6:04 AM CDT Yasmani Vigil MD LAB - POINT OF CARE ORDERABLES [address] [address], [place] [phone] * GLUCOSE - POINT OF CARE (09/28/2022 1:53 AM CDT) Glucose WB/POC 92 70 - 115 mg/dL 09/28/2022 1:57 AM CDT [facility] Specimen Type Cap Fingerstick 2022 1:57 AM CDT [facility] Blood BLOOD SPECIMEN / Unknown 09/28/2022 1:53 AM CDT 09/28/2022 1:57 AM CDT Yasmani Vigil MD LAB - POINT OF CARE ORDERABLES [address] [address], [place] [phone] * GLUCOSE - POINT OF CARE (09/27/2022 11:21 AM CDT) Glucose WB/POC 112 70 - 115 mg/dL 09/27/2022 11:26 AM CDT [facility] Specimen Type Cap Fingerstick 2022 11:26 AM CDT [facility] Blood BLOOD SPECIMEN / Unknown 09/27/2022 11:21 AM CDT 09/27/2022 11:26 AM CDT Yasmani Vigil MD LAB - POINT OF CARE ORDERABLES [address] [address], [place] [phone] * GLUCOSE - POINT OF CARE (09/27/2022 7:01 AM CDT) Glucose WB/POC 83 70 - 115 mg/dL 09/27/2022 7:03 AM CDT [facility] Specimen Type Cap Fingerstick 2022 7:03 AM CDT [facility] Blood BLOOD SPECIMEN / Unknown 09/27/2022 7:01 AM CDT 09/27/2022 7:03 AM CDT Westley Corley MD LAB - POINT OF CARE ORDERABLES [address] [address], [place] [phone] * GLUCOSE - POINT OF CARE (09/27/2022 1:02 AM CDT) Glucose WB/POC 110 70 - 115 mg/dL 09/27/2022 1:03 AM CDT [facility] Specimen Type Cap Fingerstick 2022 1:03 AM CDT [facility] Blood BLOOD SPECIMEN / Unknown 09/27/2022 1:02 AM CDT 09/27/2022 1:03 AM CDT Westley Corley MD LAB - POINT OF CARE ORDERABLES [address] [address], [place] [phone] * GLUCOSE - POINT OF CARE (09/26/2022 9:12 PM CDT) Glucose WB/POC 79 70 - 115 mg/dL 09/26/2022 9:13 PM CDT [facility] Specimen Type Arterial 09/26/2022 9:13 PM CDT [facility] Blood BLOOD SPECIMEN / Unknown 09/26/2022 9:12 PM CDT 09/26/2022 9:13 PM CDT Westley Corley MD LAB - POINT OF CARE ORDERABLES [address] [address], [place] [phone] * GLUCOSE - POINT OF CARE (09/26/2022 5:18 PM CDT) Glucose WB/POC 113 70 - 115 mg/dL 09/26/2022 5:21 PM CDT [facility] Specimen Type Cap Fingerstick 2022 5:21 PM CDT [facility] Blood BLOOD SPECIMEN / Unknown 09/26/2022 5:18 PM CDT 09/26/2022 5:21 PM CDT Westley Corley MD LAB - POINT OF CARE ORDERABLES [place] [address] [place] [address], [place] [phone] * (ABNORMAL) GLUCOSE - POINT OF CARE (09/26/2022 12:08 PM CDT) Glucose WB/POC 139(H) 70 - 115 mg/dL 09/26/2022 12:13 PM CDT [facility] Specimen Type Cap Fingerstick 2022 12:13 PM CDT [facility] Blood BLOOD SPECIMEN / Unknown 09/26/2022 12:08 PM CDT 09/26/2022 12:13 PM CDT Westley Corley MD LAB - POINT OF CARE ORDERABLES [address] [address], [place] [phone] * PHOSPHORUS BLOOD (09/26/2022 7:18 AM CDT) Phosphorus 3.5 2.8 - 5.1 mg/dL 09/26/2022 8:09 AM CDT [facility] Blood BLOOD SPECIMEN / Unknown Lab Venipuncture / Unknown 09/26/2022 7:18 AM CDT 09/26/2022 7:34 AM CDT Petra Fuentes MD LAB - CHEMISTRY MARSHAL MEDEROS [address] [address], [place] [phone] * MAGNESIUM BLOOD (09/26/2022 7:18 AM CDT) Magnesium 1.8 1.6 - 2.6 mg/dL 09/26/2022 8:09 AM CDT [facility] Blood BLOOD SPECIMEN / Unknown Lab Venipuncture / Unknown 09/26/2022 7:18 AM CDT 09/26/2022 7:34 AM CDT Petra Fuentes MD LAB - CHEMISTRY ORDByron ABRAMSLES [facility] Organization Address City/State/ZIP Co de Phone Number [facility] [address] [place] [address], [facility] [phone] * (ABNORMAL) CBC W AUTO DIFFERENTIAL (09/26/2022 7:18 AM CDT) WBC 5.3 3.5 - 10.5 10? 3 /uL 09/26/2022 8:19 AM T [facility] RBC 3.91(L) 4.30 - 5.70 10? 6 /uL 09/26/2022 8:19 AM [facility] Hemoglobin 12.2 12.0 - 17.6 g/dL 09/26/2022 8:19 AM [facility] Hematocrit 37.4 35.2 - 51.7 % 09/26/2022 8:19 AM [facility] MCV 95.7 80.7 - 98.3 fL 09/26/2022 8:19 AM [facility] MCH 31.2 26.7 - 34.0 pg 09/26/2022 8:19 AM [facility] MCHC 32.6 30.8 - 35.9 g/dL 09/26/2022 8:19 AM [facility] RDW-SD 47.2 36.0 - 50.0 fL 09/26/2022 8:19 AM [facility] RDW-CV 13.4 11.2 - 14.8 % 09/26/2022 8:19 AM [facility] Platelet Count 215 150 - 400 10? 3 /uL 09/26/2022 8:19 AM [facility] MPV 11.8 9.4 - 12.9 fL 09/26/2022 8:19 AM [facility] nRBC Absolute 0.00 0 10? 3 /uL 09/26/2022 8:19 AM [facility] nRBC Auto 0.0 0 /100 WBC 09/26/2022 8:19 AM [facility] Neutrophils % 36.8 35.0 - 70.0 % 09/26/2022 8:19 AM [facility] Lymphocytes % 49.1(H) 20.0 - 43.0 % 09/26/2022 8:19 AM [facility] Monocytes % 8.1 5.0 - 13.0 % 09/26/2022 8:19 AM [facility] Eosinophils % 5.2 0.0 - 6.0 % 09/26/2022 8:19 AM [facility] Basophil % 0.4 0.0 - 2.0 % 09/26/2022 8:19 AM [facility] Neutrophils Absolute 1.97 1.60 - 7.00 10? 3 /uL 09/26/2022 8:19 AM [facility] Lymphocyte Absolute 2.62 1.10 - 3.90 10? 3 /uL 09/26/2022 8:19 AM [facility] Monocytes Absolute 0.43 0.26 - 1.07 10? 3 /uL 09/26/2022 8:19 AM [facility] Eosinophils Absolute 0.28 0.00 - 0.47 10? 3 /uL 09/26/2022 8:19 AM [facility] Basophils Absolute 0.02 0.00 - 0.08 10? 3 /uL 09/26/2022 8:19 AM [facility] Immature Granulocytes % 0.4 0.0 - 1.0 % 09/26/2022 8:19 AM [facility] Immature Granulocytes Absolute 0.02 09/26/2022 8:19 AM [facility] Blood BLOOD SPECIMEN / Unknown Lab Venipuncture / Unknown 09/26/2022 7:18 AM CDT 09/26/2022 7:34 AM CDT Petra Fuentes MD LAB - HEMATOLOGY ORD ERABLES [address] [address], [facility] [phone] * (ABNORMAL) BASIC METABOLIC PANEL (CALCIUM TOTAL) (09/26/2022 7:18 AM CDT) BUN 16 7 - 26 mg/dL 09/26/2022 8:09 AM [facility] Creatinine 0.45(L) 0.71 - 1.16 mg/dL 09/26/2022 8:09 AM [facility] Sodium 141 136 - 145 mmol/L 09/26/2022 8:09 AM [facility] Potassium 4.5 3.5 - 4.5 mmol/L 09/26/2022 8:09 AM [facility] Chloride 104 98 - 107 mmol/L 09/26/2022 8:09 AM [facility] CO2 26 22 - 29 mmol/L 09/26/2022 8:09 AM [facility] Glucose 100 70 - 115 mg/dL 09/26/2022 8:09 AM [facility] Calcium 10.4(H) 8.4 - 10.2 mg/dL 09/26/2022 8:09 AM [facility] Anion Gap 16 8 - 18 09/26/2022 8:09 AM [facility] BUN/Creatinine Ratio 36(H) 7 - 23 09/26/2022 8:09 AM [facility] Osmolality Calculated 293 270 - 300 mOsm/kg 09/26/2022 8:09 AM [facility] eGFR by CKD-EPI >90 >=90 mL/min/1.7 3 m2 09/26/2022 8:09 AM [facility] Blood BLOOD SPECIMEN / Unknown Lab Venipuncture / Unknown 09/26/2022 7:18 AM CDT 09/26/2022 7:34 AM T Petra Fuentes MD LAB - CHEMISTRY MARSHAL MEDEROS [facility] Organization Address City/State/ZIP Co de Phone Number [facility] [address] [place] [address], [facility] [phone] * GLUCOSE - POINT OF CARE (09/25/2022 11:29 PM [facility]) Glucose WB/POC 110 70 - 115 mg/dL 09/25/2022 11:30 PM [facility] Specimen Type Cap Fingerstick 2022 11:30 PM [facility] Blood BLOOD SPECIMEN / Unknown 09/25/2022 11:29 PM CDT 09/25/2022 11:30 PM CDT Amanda Rojo MD LAB - POINT OF CARE ORDERABLES [address] [address], [place] [phone] * (ABNORMAL) GLUCOSE - POINT OF CARE (09/25/2022 5:22 PM CDT) Glucose WB/POC 133(H) 70 - 115 mg/dL 09/25/2022 5:24 PM CDT [facility] Specimen Type Cap Fingerstick 2022 5:24 PM CDT [facility] Blood BLOOD SPECIMEN / Unknown 09/25/2022 5:22 PM CDT 09/25/2022 5:24 PM CDT Amanda Rojo MD LAB - POINT OF CARE ORDERABLES Performing Organization Address City/[facility]/ZIP Co de Phone Number [address] [address], [place] [phone] * (ABNORMAL) GLUCOSE - POINT OF CARE (09/25/2022 12:39 PM CDT) Glucose WB/POC 138(H) 70 - 115 mg/dL 09/25/2022 12:40 PM CDT [facility] Specimen Type Cap Fingerstick 2022 12:40 PM CDT [facility] Blood BLOOD SPECIMEN / Unknown 09/25/2022 12:39 PM CDT 09/25/2022 12:40 PM CDT Amanda Rojo MD LAB - POINT OF CARE ORDERABLES [address] [address], [place] [phone] * (ABNORMAL) GLUCOSE - POINT OF CARE (09/25/2022 8:10 AM CDT) Glucose WB/POC 136(H) 70 - 115 mg/dL 09/25/2022 8:11 AM CDT [facility] Specimen Type Cap Fingerstick 2022 8:11 AM CDT [facility] Blood BLOOD SPECIMEN / Unknown 09/25/2022 8:10 AM CDT 09/25/2022 8:11 AM CDT Amanda Rojo MD LAB - POINT OF CARE ORDERABLES Performing Organization Address City/[facility]/ZIP Co de Phone Number [address] [address], [place] [phone] * (ABNORMAL) GLUCOSE - POINT OF CARE (09/25/2022 5:35 AM CDT) Glucose WB/POC 124(H) 70 - 115 mg/dL 09/25/2022 5:39 AM CDT [facility] Specimen Type Cap Fingerstick 2022 5:39 AM CDT [facility] Blood BLOOD SPECIMEN / Unknown 09/25/2022 5:35 AM CDT 09/25/2022 5:39 AM CDT Amanda Rojo MD LAB - POINT OF CARE ORDERABLES Performing Organization Address [facility] Co de Phone Number [address] [address], [place] [phone] * (ABNORMAL) GLUCOSE - POINT OF CARE (09/24/2022 11:39 PM CDT) Glucose WB/POC 122(H) 70 - 115 mg/dL 09/24/2022 11:52 PM CDT [facility] Specimen Type Cap Fingerstick 2022 11:52 PM CDT [facility] Blood BLOOD SPECIMEN / Unknown 09/24/2022 11:39 PM CDT 09/24/2022 11:52 PM CDT Amanda Rojo MD LAB - POINT OF CARE ORDERABLES Performing Organization Address City/[facility]/ZIP Co de Phone Number [address] [place] [address], [facility] [phone] * GLUCOSE - POINT OF CARE (09/24/2022 4:11 PM CDT) Glucose WB/POC 96 70 - 115 mg/dL 09/24/2022 4:12 PM CDT [facility] Specimen Type Arterial 09/24/2022 4:12 PM CDT [facility] Blood BLOOD SPECIMEN / Unknown 09/24/2022 4:11 PM CDT 09/24/2022 4:12 PM CDT Amanda Rojo MD LAB - POINT OF CARE ORDERABLES [id number] [place] [address], [facility] [phone] * XR CHEST 1VW PORTABLE (09/24/2022 2:19 PM CDT) Anatomical Region Laterality Modality Chest Radiographic Cynthia ging 09/24/2022 2:15 PM CDT Narrative 09/24/2022 5:13 PM CDT PROCEDURE: ??XR CHEST 1VW PORTABLE, DATE/TIME OF EXAM: ??09/24/2022 1:54 PM, LOCATION ??[facility] INDICATION: R00.0: Tachycardia ADDITIONAL CLINICAL INFORMATION: Ordering Provider Reason For Exam: ??Tachycardia, hx trach and pna COMPARISON: Chest x-ray from 09/19/2022 FINDINGS/IMPRESSION: Tracheostomy tube terminates within the mid thoracic trachea. The patient is rotated to the right. There is a small volume pleural effusion on the right with right lower lung consolidation concerning for pneumonia. No pneumothorax. There is lower lung atelectasis. The cardiomediastinal silhouette is obscured secondary to patient rotation and positioning. Report dictated by Shane Dougherty DO (residential mortgage manager). I, Jhon Graham MD have personally reviewed and interpreted this examination/study. > Interpreting Provider: John Graham MD on 09/24/2022 5:13 PM Procedure Note John Graham MD - 09/24/2022 PROCEDURE: XR CHEST 1VW PORTABLE, DATE/TIME OF EXAM: 09/24/2022 1:54PM, LOCATION [facility] INDICATION: R00.0: Tachycardia ADDITIONAL CLINICAL INFORMATION: Ordering Provider Reason For Exam: Tachycardia, hx trach and pna COMPARISON: Chest x-ray from 09/19/2022 FINDINGS/IMPRESSION: Tracheostomy tube terminates within the mid thoracic trachea. Thepatient is rotated to the right. There is a small volume pleural effusion on the right with right lowerlung consolidation concerning for pneumonia. No pneumothorax. There is lower lung atelectasis. The cardiomediastinal silhouette is obscured secondaryto patient rotation and positioning. Report dictated by Shane Dougherty DO (residential mortgage manager). I, John Graham MD have personally reviewed and interpreted this examination/study. > Interpreting Provider: John Graham MD on 09/24/2022 5:13 PM Amanda Rojo MD DIAGNOSTIC IMAGING O RDERABLES * GLUCOSE - POINT OF CARE (09/24/2022 11:47 AM CDT) Glucose WB/POC 100 70 - 115 mg/dL 09/24/2022 11:48 AM CDT [facility] Specimen Type Arterial 09/24/2022 11:48 AM CDT [facility] Blood BLOOD SPECIMEN / Unknown 09/24/2022 11:47 AM CDT 09/24/2022 11:48 AM CDT Amanda Rojo MD LAB - POINT OF CARE ORDERABLES Performing Organization Address City/State/[facility] Co de Phone Number [facility] [address] [place] [address], [facility] [phone] * (ABNORMAL) GLUCOSE - POINT OF CARE (09/24/2022 8:06 AM CDT) Glucose WB/POC 136(H) 70 - 115 mg/dL 09/24/2022 8:06 AM CDT [facility] Specimen Type Arterial 09/24/2022 8:06 AM CDT [facility] Blood BLOOD SPECIMEN / Unknown 09/24/2022 8:06 AM CDT 09/24/2022 8:06 AM CDT Amanda Rojo MD LAB - POINT OF CARE ORDERABLES [address] [address], [place] [phone] * PHOSPHORUS BLOOD (09/24/2022 7:59 AM CDT) Phosphorus 3.1 2.8 - 5.1 mg/dL 09/24/2022 9:07 AM CDT [facility] Blood BLOOD SPECIMEN / Unknown Lab Venipuncture / Unknown 09/24/2022 7:59 AM CDT 09/24/2022 8:15 AM CDT Petra Fuentes MD LAB - CHEMISTRY MARSHAL MEDEROS Performing Organization Address City/[facility]/ZIP Co de Phone Number [address] [address], [place] [phone] * MAGNESIUM BLOOD (09/24/2022 7:59 AM CDT) Magnesium 1.7 1.6 - 2.6 mg/dL 09/24/2022 9:07 AM CDT [facility] Blood BLOOD SPECIMEN / Unknown Lab Venipuncture / Unknown 09/24/2022 7:59 AM CDT 09/24/2022 8:15 AM CDT Petra Fuentes MD LAB - CHEMISTRY MARSHAL MEDEROS [address] [address], [place] [phone] * (ABNORMAL) CBC W AUTO DIFFERENTIAL (09/24/2022 7:59 AM CDT) WBC 7.6 3.5 - 10.5 10? 3 /uL 09/24/2022 8:28 AM CDT [facility] RBC 3.44(L) 4.30 - 5.70 10? 6 /uL 09/24/2022 8:28 AM [facility] Hemoglobin 10.7(L) 12.0 - 17.6 g/dL 09/24/2022 8:28 AM [facility] Hematocrit 34.4(L) 35.2 - 51.7 % 09/24/2022 8:28 AM [facility] MCV 100.0(H) 80.7 - 98.3 fL 09/24/2022 8:28 AM [facility] MCH 31.1 26.7 - 34.0 pg 09/24/2022 8:28 AM [facility] MCHC 31.1 30.8 - 35.9 g/dL 09/24/2022 8:28 AM [facility] RDW-SD 48.5 36.0 - 50.0 fL 09/24/2022 8:28 AM [facility] RDW-CV 13.2 11.2 - 14.8 % 09/24/2022 8:28 AM [facility] Platelet Count 130(L) 150 - 400 10? 3 /uL 09/24/2022 8:28 AM [facility] MPV 12.5 9.4 - 12.9 fL 09/24/2022 8:28 AM [facility] nRBC Absolute 0.00 0 10? 3 /uL 09/24/2022 8:28 AM [facility] nRBC Auto 0.0 0 /100 WBC 09/24/2022 8:28 AM [facility] Neutrophils % 61.4 35.0 - 70.0 % 09/24/2022 8:28 AM [facility] Lymphocytes % 24.5 20.0 - 43.0 % 09/24/2022 8:28 AM [facility] Monocytes % 9.5 5.0 - 13.0 % 09/24/2022 8:28 AM [facility] Eosinophils % 4.0 0.0 - 6.0 % 09/24/2022 8:28 AM [facility] Basophil % 0.3 0.0 - 2.0 % 09/24/2022 8:28 AM [facility] Neutrophils Absolute 4.65 1.60 - 7.00 10? 3 /uL 09/24/2022 8:28 AM [facility] Lymphocyte Absolute 1.85 1.10 - 3.90 10? 3 /uL 09/24/2022 8:28 AM [facility] Monocytes Absolute 0.72 0.26 - 1.07 10? 3 /uL 09/24/2022 8:28 AM [facility] Eosinophils Absolute 0.30 0.00 - 0.47 10? 3 /uL 09/24/2022 8:28 AM [facility] Basophils Absolute 0.02 0.00 - 0.08 10? 3 /uL 09/24/2022 8:28 AM [facility] Immature Granulocytes % 0.3 0.0 - 1.0 % 09/24/2022 8:28 AM [facility] Immature Granulocytes Absolute 0.02 09/24/2022 8:28 AM [facility] Blood BLOOD SPECIMEN / Unknown Lab Venipuncture / Unknown 09/24/2022 7:59 AM CDT 09/24/2022 8:16 AM CDT Petra Fuentes MD LAB - HEMATOLOGY ORD ERABLES [facility] [address] [place] [address], [facility] [phone] * (ABNORMAL) BASIC METABOLIC PANEL (CALCIUM TOTAL) (09/24/2022 7:59 AM CDT) BUN 14 7 - 26 mg/dL 09/24/2022 9:07 AM [facility] Creatinine 0.42(L) 0.71 - 1.16 mg/dL 09/24/2022 9:07 AM [facility] Sodium 142 136 - 145 mmol/L 09/24/2022 9:07 AM [facility] Potassium 4.8(H) 3.5 - 4.5 mmol/L 09/24/2022 9:07 AM [facility] Chloride 105 98 - 107 mmol/L 09/24/2022 9:07 AM [facility] CO2 22 22 - 29 mmol/L 09/24/2022 9:07 AM [facility] Glucose 115 70 - 115 mg/dL 09/24/2022 9:07 AM [facility] Calcium 10.2 8.4 - 10.2 mg/dL 09/24/2022 9:07 AM [facility] Anion Gap 20(H) 8 - 18 09/24/2022 9:07 AM [facility] BUN/Creatinine Ratio 33(H) 7 - 23 09/24/2022 9:07 AM [facility] Osmolality Calculated 295 270 - 300 mOsm/kg 09/24/2022 9:07 AM [facility] eGFR by CKD-EPI >90 >=90 mL/min/1.7 3 m2 09/24/2022 9:07 AM [facility] Blood BLOOD SPECIMEN / Unknown Lab Venipuncture / Unknown 09/24/2022 7:59 AM CDT 09/24/2022 8:15 AM CDT Petra Fuentes MD LAB - CHEMISTRY ORDByron MEDEROS [address] [address], [place] [phone] * GLUCOSE - POINT OF CARE (09/24/2022 5:57 AM CDT) Glucose WB/POC 115 70 - 115 mg/dL 09/24/2022 6:01 AM [facility] Specimen Type Cap Fingerstick 2022 6:01 AM [facility] Blood BLOOD SPECIMEN / Unknown 09/24/2022 5:57 AM CDT 09/24/2022 6:01 AM CDT Petra Fuentes MD LAB - POINT OF CARE ORDERABLES [address] [address], [place] [phone] * (ABNORMAL) GLUCOSE - POINT OF CARE (09/23/2022 11:37 PM CDT) Glucose WB/POC 127(H) 70 - 115 mg/dL 09/23/2022 11:41 PM CDT [facility] Specimen Type Cap Fingerstick 2022 11:41 PM CDT [facility] Blood BLOOD SPECIMEN / Unknown 09/23/2022 11:37 PM CDT 09/23/2022 11:41 PM CDT Petra Fuentes MD LAB - POINT OF CARE ORDERABLES [facility] [address] [place] [address], [place] [phone] * (ABNORMAL) GLUCOSE - POINT OF CARE (09/23/2022 5:25 PM CDT) Glucose WB/POC 117(H) 70 - 115 mg/dL 09/23/2022 5:36 PM CDT [facility] Specimen Type Cap Fingerstick 2022 5:36 PM CDT [facility] Blood BLOOD SPECIMEN / Unknown 09/23/2022 5:25 PM CDT 09/23/2022 5:36 PM CDT Petra Fuentes MD LAB - POINT OF CARE ORDERABLES Performing Organization Address City/[facility]/ZIP Co de Phone Number [address] [address], [place] [phone] * (ABNORMAL) GLUCOSE - POINT OF CARE (09/23/2022 12:57 PM CDT) Glucose WB/POC 121(H) 70 - 115 mg/dL 09/23/2022 12:59 PM CDT [facility] Specimen Type Cap Fingerstick 2022 12:59 PM CDT [facility] Blood BLOOD SPECIMEN / Unknown 09/23/2022 12:57 PM CDT 09/23/2022 12:59 PM CDT Petra Fuentes MD LAB - POINT OF CARE ORDERABLES [facility] [address] [place] [address], [place] [phone] * GLUCOSE - POINT OF CARE (09/23/2022 5:50 AM CDT) Glucose WB/POC 99 70 - 115 mg/dL 09/23/2022 5:55 AM CDT [facility] Specimen Type Cap Fingerstick 2022 5:55 AM CDT [facility] Blood BLOOD SPECIMEN / Unknown 09/23/2022 5:50 AM CDT 09/23/2022 5:55 AM CDT Petra Fuentes MD LAB - POINT OF CARE ORDERABLES [facility] [address] [place] [address], [place] [phone] * (ABNORMAL) GLUCOSE - POINT OF CARE (09/22/2022 11:48 PM CDT) Glucose WB/POC 118(H) 70 - 115 mg/dL 09/22/2022 11:57 PM CDT [facility] Specimen Type Cap Fingerstick 2022 11:57 PM CDT [facility] Blood BLOOD SPECIMEN / Unknown 09/22/2022 11:48 PM CDT 09/22/2022 11:57 PM CDT Petra Fuentes MD LAB - POINT OF CARE ORDERABLES [facility] [address] [place] [address], [place] [phone] * GLUCOSE - POINT OF CARE (09/22/2022 5:45 PM CDT) Glucose WB/POC 114 70 - 115 mg/dL 09/22/2022 5:46 PM CDT [facility] Specimen Type Cap Fingerstick 2022 5:46 PM CDT [facility] Blood BLOOD SPECIMEN / Unknown 09/22/2022 5:45 PM CDT 09/22/2022 5:46 PM CDT Petra Fuentes MD LAB - POINT OF CARE ORDERABLES [address] [address], [place] [phone] * (ABNORMAL) GLUCOSE - POINT OF CARE (09/22/2022 11:40 AM CDT) Glucose WB/POC 118(H) 70 - 115 mg/dL 09/22/2022 11:41 AM CDT [facility] Specimen Type Cap Fingerstick 2022 11:41 AM CDT [facility] Blood BLOOD SPECIMEN / Unknown 09/22/2022 11:40 AM CDT 09/22/2022 11:41 AM CDT Petra Fuentes MD LAB - POINT OF CARE ORDERABLES [address] [address], [place] [phone] * (ABNORMAL) GLUCOSE - POINT OF CARE (09/22/2022 7:35 AM CDT) Glucose WB/POC 151(H) 70 - 115 mg/dL 09/22/2022 7:36 AM CDT [facility] Specimen Type Cap Fingerstick 2022 7:36 AM CDT [facility] Blood BLOOD SPECIMEN / Unknown 09/22/2022 7:35 AM CDT 09/22/2022 7:36 AM CDT Petra Fuentes MD LAB - POINT OF CARE ORDERABLES [address] [address], [place] [phone] * (ABNORMAL) GLUCOSE - POINT OF CARE (09/22/2022 5:55 AM CDT) Glucose WB/POC 120(H) 70 - 115 mg/dL 09/22/2022 5:56 AM CDT [facility] Specimen Type Cap Fingerstick 2022 5:56 AM CDT [facility] Blood BLOOD SPECIMEN / Unknown 09/22/2022 5:55 AM CDT 09/22/2022 5:56 AM CDT Petra Fuentes MD LAB - POINT OF CARE ORDERABLES [address] [address], [place] [phone] * GLUCOSE - POINT OF CARE (09/21/2022 11:51 PM CDT) Glucose WB/POC 109 70 - 115 mg/dL 09/21/2022 11:52 PM CDT [facility] Specimen Type Cap Fingerstick 2022 11:52 PM CDT [facility] Blood BLOOD SPECIMEN / Unknown 09/21/2022 11:51 PM CDT 09/21/2022 11:52 PM CDT Petra Fuentes MD LAB - POINT OF CARE ORDERABLES Performing Organization Address City/[facility]/ZIP Co de Phone Number [address] [address], [place] [phone] * GLUCOSE - POINT OF CARE (09/21/2022 4:22 PM CDT) Glucose WB/POC 85 70 - 115 mg/dL 09/21/2022 4:23 PM CDT [facility] Specimen Type Cap Fingerstick 2022 4:23 PM CDT [facility] Blood BLOOD SPECIMEN / Unknown 09/21/2022 4:22 PM CDT 09/21/2022 4:23 PM CDT Petra Fuentes MD LAB - POINT OF CARE ORDERABLES [address] [address], [place] [phone] * (ABNORMAL) GLUCOSE - POINT OF CARE (09/21/2022 12:06 PM CDT) Pathologist [facility] Glucose WB/POC 166(H) 70 - 115 mg/dL 09/21/2022 12:07 PM CDT [facility] Specimen Type Cap Fingerstick 2022 12:07 PM CDT [facility] Blood BLOOD SPECIMEN / Unknown 09/21/2022 12:06 PM CDT 09/21/2022 12:07 PM CDT Petra Fuentes MD LAB - POINT OF CARE ORDERABLES [facility] [address] [place] [address], [place] [phone] * GLUCOSE - POINT OF CARE (09/21/2022 8:52 AM CDT) Pathologist [facility] Glucose WB/POC 105 70 - 115 mg/dL 09/21/2022 8:57 AM CDT [facility] Specimen Type Cap Fingerstick 2022 8:57 AM CDT [facility] Blood BLOOD SPECIMEN / Unknown 09/21/2022 8:52 AM CDT 09/21/2022 8:57 AM CDT Petra Fuentes MD LAB - POINT OF CARE ORDERABLES [facility] [address] [place] [address], [place] [phone] * (ABNORMAL) CBC W AUTO DIFFERENTIAL (09/21/2022 6:40 AM CDT) Pathologist [facility] WBC 10.4 3.5 - 10.5 10? 3 /uL 09/21/2022 7:22 AM CDT [facility] RBC 3.28(L) 4.30 - 5.70 10? 6 /uL 09/21/2022 7:22 AM CDT [facility] Hemoglobin 10.1(L) 12.0 - 17.6 g/dL 09/21/2022 7:22 AM [facility] Hematocrit 31.7(L) 35.2 - 51.7 % 09/21/2022 7:22 AM [facility] MCV 96.6 80.7 - 98.3 fL 09/21/2022 7:22 AM [facility] MCH 30.8 26.7 - 34.0 pg 09/21/2022 7:22 AM [facility] MCHC 31.9 30.8 - 35.9 g/dL 09/21/2022 7:22 AM [facility] RDW-SD 47.7 36.0 - 50.0 fL 09/21/2022 7:22 AM [facility] RDW-CV 13.4 11.2 - 14.8 % 09/21/2022 7:22 AM [facility] Platelet Count 239 150 - 400 10? 3 /uL 09/21/2022 7:22 AM [facility] MPV 12.3 9.4 - 12.9 fL 09/21/2022 7:22 AM [facility] nRBC Absolute 0.00 0 10? 3 /uL 09/21/2022 7:22 AM [facility] nRBC Auto 0.0 0 /100 WBC 09/21/2022 7:22 AM [facility] Neutrophils % 66.6 35.0 - 70.0 % 09/21/2022 7:22 AM [facility] Lymphocytes % 20.5 20.0 - 43.0 % 09/21/2022 7:22 AM [facility] Monocytes % 9.0 5.0 - 13.0 % 09/21/2022 7:22 AM [facility] Eosinophils % 3.5 0.0 - 6.0 % 09/21/2022 7:22 AM [facility] Basophil % 0.2 0.0 - 2.0 % 09/21/2022 7:22 AM [facility] Neutrophils Absolute 6.93 1.60 - 7.00 10? 3 /uL 09/21/2022 7:22 AM [facility] Lymphocyte Absolute 2.13 1.10 - 3.90 10? 3 /uL 09/21/2022 7:22 AM [facility] Monocytes Absolute 0.94 0.26 - 1.07 10? 3 /uL 09/21/2022 7:22 AM [facility] Eosinophils Absolute 0.36 0.00 - 0.47 10? 3 /uL 09/21/2022 7:22 AM [facility] Basophils Absolute 0.02 0.00 - 0.08 10? 3 /uL 09/21/2022 7:22 AM [facility] Immature Granulocytes % 0.2 0.0 - 1.0 % 09/21/2022 7:22 AM [facility] Immature Granulocytes Absolute 0.02 09/21/2022 7:22 AM [facility] Blood BLOOD SPECIMEN / Unknown Lab Venipuncture / Unknown 09/21/2022 6:40 AM CDT 09/21/2022 7:02 AM CDT Petra Fuentes MD LAB - HEMATOLOGY ORD ERABLES [facility] [address] [place] [address], [facility] [phone] * (ABNORMAL) BASIC METABOLIC PANEL (CALCIUM TOTAL) (09/21/2022 6:40 AM CDT) BUN 13 7 - 26 mg/dL 09/21/2022 7:33 AM [facility] Creatinine 0.39(L) 0.71 - 1.16 mg/dL 09/21/2022 7:33 AM [facility] Sodium 138 136 - 145 mmol/L 09/21/2022 7:33 AM [facility] Potassium 4.4 3.5 - 4.5 mmol/L 09/21/2022 7:33 AM [facility] Chloride 104 98 - 107 mmol/L 09/21/2022 7:33 AM [facility] CO2 24 22 - 29 mmol/L 09/21/2022 7:33 AM [facility] Glucose 109 70 - 115 mg/dL 09/21/2022 7:33 AM [facility] Calcium 10.0 8.4 - 10.2 mg/dL 09/21/2022 7:33 AM CDT [facility] Anion Gap 14 8 - 18 09/21/2022 7:33 AM CDT [facility] BUN/Creatinine Ratio 33(H) 7 - 23 09/21/2022 7:33 AM CDT [facility] Osmolality Calculated 287 270 - 300 mOsm/kg 09/21/2022 7:33 AM CDT [facility] eGFR by CKD-EPI >90 >=90 mL/min/1.7 3 m2 09/21/2022 7:33 AM CDT [facility] Blood BLOOD SPECIMEN / Unknown Lab Venipuncture / Unknown 09/21/2022 6:40 AM CDT 09/21/2022 7:02 AM CDT Petra Fuentes MD LAB - CHEMISTRY MARSHAL MEDEROS [address] [address], [facility] [phone] * PHOSPHORUS BLOOD (09/21/2022 6:40 AM CDT) Phosphorus 3.2 2.8 - 5.1 mg/dL 09/21/2022 7:33 AM CDT [facility] Blood BLOOD SPECIMEN / Unknown Lab Venipuncture / Unknown 09/21/2022 6:40 AM CDT 09/21/2022 7:02 AM CDT Artemio Abarca MD LAB - CHEMISTRY MARSHAL MEDEROS [facility] [address] [place] [phone], [facility] [phone] * MAGNESIUM BLOOD (09/21/2022 6:40 AM CDT) Magnesium 1.7 1.6 - 2.6 mg/dL 09/21/2022 7:33 AM CDT [facility] Blood BLOOD SPECIMEN / Unknown Lab Venipuncture / Unknown 09/21/2022 6:40 AM CDT 09/21/2022 7:02 AM CDT Artemio Abarca MD LAB - CHEMISTRY MARSHAL MEDEROS [address] [address], [place] [phone] * GLUCOSE - POINT OF CARE (09/21/2022 6:15 AM CDT) Glucose WB/POC 113 70 - 115 mg/dL 09/21/2022 6:21 AM CDT [facility] Specimen Type Cap Fingerstick 2022 6:21 AM CDT [facility] Blood BLOOD SPECIMEN / Unknown 09/21/2022 6:15 AM CDT 09/21/2022 6:20 AM CDT Petra Fuentes MD LAB - POINT OF CARE ORDERABLES Performing Organization Address City/[facility]/ZIP Co de Phone Number [address] [address], [place] [phone] * (ABNORMAL) GLUCOSE - POINT OF CARE (09/21/2022 1:12 AM CDT) Glucose WB/POC 127(H) 70 - 115 mg/dL 09/21/2022 1:14 AM CDT [facility] Specimen Type Cap Fingerstick 2022 1:14 AM CDT [facility] Blood BLOOD SPECIMEN / Unknown 09/21/2022 1:12 AM CDT 09/21/2022 1:14 AM CDT Petra Fuentes MD LAB - POINT OF CARE ORDERABLES [address] [address], [place] [phone] * (ABNORMAL) GLUCOSE - POINT OF CARE (09/20/2022 9:34 PM CDT) Glucose WB/POC 119(H) 70 - 115 mg/dL 09/20/2022 9:41 PM CDT [facility] Specimen Type Cap Fingerstick 2022 9:41 PM CDT [facility] Blood BLOOD SPECIMEN / Unknown 09/20/2022 9:34 PM CDT 09/20/2022 9:40 PM CDT Petra Fuentes MD LAB - POINT OF CARE ORDERABLES [address] [address], [place] [phone] * GLUCOSE - POINT OF CARE (09/20/2022 7:02 PM CDT) Pathologist [facility] Glucose WB/POC 112 70 - 115 mg/dL 09/20/2022 7:06 PM CDT [facility] Specimen Type Cap Fingerstick 2022 7:06 PM CDT [facility] Blood BLOOD SPECIMEN / Unknown 09/20/2022 7:02 PM CDT 09/20/2022 7:06 PM CDT Petra Fuentes MD LAB - POINT OF CARE ORDERABLES [address] [address], [place] [phone] * (ABNORMAL) CBC W AUTO DIFFERENTIAL (09/20/2022 6:48 AM CDT) WBC 9.5 3.5 - 10.5 10? 3 /uL 09/20/2022 7:26 AM [facility] RBC 3.20(L) 4.30 - 5.70 10? 6 /uL 09/20/2022 7:26 AM [facility] Hemoglobin 10.0(L) 12.0 - 17.6 g/dL 09/20/2022 7:26 AM [facility] Hematocrit 31.6(L) 35.2 - 51.7 % 09/20/2022 7:26 AM [facility] MCV 98.8(H) 80.7 - 98.3 fL 09/20/2022 7:26 AM [facility] MCH 31.3 26.7 - 34.0 pg 09/20/2022 7:26 AM [facility] MCHC 31.6 30.8 - 35.9 g/dL 09/20/2022 7:26 AM [facility] RDW-SD 49.5 36.0 - 50.0 fL 09/20/2022 7:26 AM [facility] RDW-CV 13.7 11.2 - 14.8 % 09/20/2022 7:26 AM [facility] Platelet Count 189 150 - 400 10? 3 /uL 09/20/2022 7:26 AM [facility] MPV 12.3 9.4 - 12.9 fL 09/20/2022 7:26 AM [facility] nRBC Absolute 0.00 0 10? 3 /uL 09/20/2022 7:26 AM [facility] nRBC Auto 0.0 0 /100 WBC 09/20/2022 7:26 AM [facility] Neutrophils % 63.0 35.0 - 70.0 % 09/20/2022 7:26 AM [facility] Lymphocytes % 21.6 20.0 - 43.0 % 09/20/2022 7:26 AM [facility] Monocytes % 11.5 5.0 - 13.0 % 09/20/2022 7:26 AM [facility] Eosinophils % 3.3 0.0 - 6.0 % 09/20/2022 7:26 AM [facility] Basophil % 0.3 0.0 - 2.0 % 09/20/2022 7:26 AM [facility] Neutrophils Absolute 5.95 1.60 - 7.00 10? 3 /uL 09/20/2022 7:26 AM [facility] Lymphocyte Absolute 2.04 1.10 - 3.90 10? 3 /uL 09/20/2022 7:26 AM [facility] Monocytes Absolute 1.09(H) 0.26 - 1.07 10? 3 /uL 09/20/2022 7:26 AM [facility] Eosinophils Absolute 0.31 0.00 - 0.47 10? 3 /uL 09/20/2022 7:26 AM [facility] Basophils Absolute 0.03 0.00 - 0.08 10? 3 /uL 09/20/2022 7:26 AM [facility] Immature Granulocytes % 0.3 0.0 - 1.0 % 09/20/2022 7:26 AM [facility] Immature Granulocytes Absolute 0.03 09/20/2022 7:26 AM [facility] Blood BLOOD SPECIMEN / Unknown Lab Venipuncture / Unknown 09/20/2022 6:48 AM CDT 09/20/2022 7:14 AM T Petra Fuentes MD LAB - HEMATOLOGY ORD ERABLES [facility] [address] [place] [address], [facility] [phone] * (ABNORMAL) BASIC METABOLIC PANEL (CALCIUM TOTAL) (09/20/2022 6:48 AM CDT) BUN 16 7 - 26 mg/dL 09/20/2022 7:45 AM [facility] Creatinine 0.40(L) 0.71 - 1.16 mg/dL 09/20/2022 7:45 AM [facility] Sodium 139 136 - 145 mmol/L 09/20/2022 7:45 AM [facility] Potassium 4.6(H) 3.5 - 4.5 mmol/L 09/20/2022 7:45 AM [facility] Chloride 106 98 - 107 mmol/L 09/20/2022 7:45 AM [facility] CO2 24 22 - 29 mmol/L 09/20/2022 7:45 AM [facility] Glucose 93 70 - 115 mg/dL 09/20/2022 7:45 AM [facility] Calcium 9.7 8.4 - 10.2 mg/dL 09/20/2022 7:45 AM [facility] Anion Gap 14 8 - 18 09/20/2022 7:45 AM [facility] BUN/Creatinine Ratio 40(H) 7 - 23 09/20/2022 7:45 AM CDT [facility] Osmolality Calculated 289 270 - 300 mOsm/kg 09/20/2022 7:45 AM CDT [facility] eGFR by CKD-EPI >90 >=90 mL/min/1.7 3 m2 09/20/2022 7:45 AM CDT [facility] Blood BLOOD SPECIMEN / Unknown Lab Venipuncture / Unknown 09/20/2022 6:48 AM CDT 09/20/2022 7:14 AM CDT Petra Fuentes MD LAB - CHEMISTRY [facility] [address] [address], [place] [phone] * PHOSPHORUS BLOOD (09/20/2022 6:48 AM CDT) Phosphorus 3.5 2.8 - 5.1 mg/dL 09/20/2022 7:45 AM CDT [facility] Blood BLOOD SPECIMEN / Unknown Lab Venipuncture / Unknown 09/20/2022 6:48 AM CDT 09/20/2022 7:14 AM CDT Artemio Abarca MD LAB - CHEMISTRY [facility] [address] [address], [place] [phone] * MAGNESIUM BLOOD (09/20/2022 6:48 AM CDT) Magnesium 1.7 1.6 - 2.6 mg/dL 09/20/2022 7:45 AM CDT [facility] Blood BLOOD SPECIMEN / Unknown Lab Venipuncture / Unknown 09/20/2022 6:48 AM CDT 09/20/2022 7:14 AM CDT Artemio Abarca MD LAB - CHEMISTRY [facility] [address] [address], [place] [phone] * GLUCOSE - POINT OF CARE (09/19/2022 8:49 PM CDT) Pathologist [facility] Glucose WB/POC 108 70 - 115 mg/dL 09/19/2022 8:56 PM [facility] Specimen Type Arterial 09/19/2022 8:56 PM [facility] Blood BLOOD SPECIMEN / Unknown 09/19/2022 8:49 PM CDT 09/19/2022 8:56 PM CDT Petra Fuentes MD LAB - POINT OF CARE ORDERABLES [facility] [address] [place] [id number], [facility] [phone] * (ABNORMAL) CBC W AUTO DIFFERENTIAL (09/19/2022 8:16 AM CDT) Pathologist [facility] WBC 9.3 3.5 - 10.5 10? 3 /uL 09/19/2022 8:40 AM [facility] RBC 3.09(L) 4.30 - 5.70 10? 6 /uL 09/19/2022 8:40 AM [facility] Hemoglobin 9.8(L) 12.0 - 17.6 g/dL 09/19/2022 8:40 AM [facility] Hematocrit 30.0(L) 35.2 - 51.7 % 09/19/2022 8:40 AM [facility] MCV 97.1 80.7 - 98.3 fL 09/19/2022 8:40 AM [facility] MCH 31.7 26.7 - 34.0 pg 09/19/2022 8:40 AM [facility] MCHC 32.7 30.8 - 35.9 g/dL 09/19/2022 8:40 AM [facility] RDW-SD 49.7 36.0 - 50.0 fL 09/19/2022 8:40 AM [facility] RDW-CV 14.1 11.2 - 14.8 % 09/19/2022 8:40 AM [facility] Platelet Count 251 150 - 400 10? 3 /uL 09/19/2022 8:40 AM [facility] MPV 12.1 9.4 - 12.9 fL 09/19/2022 8:40 AM [facility] nRBC Absolute 0.00 0 10? 3 /uL 09/19/2022 8:40 AM [facility] nRBC Auto 0.0 0 /100 WBC 09/19/2022 8:40 AM [facility] Neutrophils % 64.1 35.0 - 70.0 % 09/19/2022 8:40 AM [facility] Lymphocytes % 24.2 20.0 - 43.0 % 09/19/2022 8:40 AM [facility] Monocytes % 9.1 5.0 - 13.0 % 09/19/2022 8:40 AM [facility] Eosinophils % 2.2 0.0 - 6.0 % 09/19/2022 8:40 AM [facility] Basophil % 0.2 0.0 - 2.0 % 09/19/2022 8:40 AM [facility] Neutrophils Absolute 5.95 1.60 - 7.00 10? 3 /uL 09/19/2022 8:40 AM [facility] Lymphocyte Absolute 2.25 1.10 - 3.90 10? 3 /uL 09/19/2022 8:40 AM [facility] Monocytes Absolute 0.84 0.26 - 1.07 10? 3 /uL 09/19/2022 8:40 AM [facility] Eosinophils Absolute 0.20 0.00 - 0.47 10? 3 /uL 09/19/2022 8:40 AM [facility] Basophils Absolute 0.02 0.00 - 0.08 10? 3 /uL 09/19/2022 8:40 AM [facility] Immature Granulocytes % 0.2 0.0 - 1.0 % 09/19/2022 8:40 AM [facility] Immature Granulocytes Absolute 0.02 09/19/2022 8:40 AM [facility] Blood BLOOD SPECIMEN / Unknown Lab Venipuncture / Unknown 09/19/2022 8:16 AM CDT 09/19/2022 8:31 AM CDT Petra Fuentes MD LAB - HEMATOLOGY ORD ERABLES [facility] [address] [place] [address], [facility] [phone] * (ABNORMAL) BASIC METABOLIC PANEL (CALCIUM TOTAL) (09/19/2022 8:16 AM CDT) BUN 15 7 - 26 mg/dL 09/19/2022 9:01 AM [facility] Creatinine 0.40(L) 0.71 - 1.16 mg/dL 09/19/2022 9:01 AM [facility] Sodium 138 136 - 145 mmol/L 09/19/2022 9:01 AM [facility] Potassium 4.3 3.5 - 4.5 mmol/L 09/19/2022 9:01 AM [facility] Chloride 105 98 - 107 mmol/L 09/19/2022 9:01 AM [facility] CO2 26 22 - 29 mmol/L 09/19/2022 9:01 AM [facility] Glucose 129(H) 70 - 115 mg/dL 09/19/2022 9:01 AM [facility] Calcium 9.8 8.4 - 10.2 mg/dL 09/19/2022 9:01 AM [facility] Anion Gap 11 8 - 18 09/19/2022 9:01 AM [facility] BUN/Creatinine Ratio 38(H) 7 - 23 09/19/2022 9:01 AM [facility] Osmolality Calculated 289 270 - 300 mOsm/kg 09/19/2022 9:01 AM [facility] eGFR by CKD-EPI >90 >=90 mL/min/1.7 3 m2 09/19/2022 9:01 AM [facility] Blood BLOOD SPECIMEN / Unknown Lab Venipuncture / Unknown 09/19/2022 8:16 AM CDT 09/19/2022 8:31 AM CDT Petra Fuentes MD LAB - CHEMISTRY MARSHAL MEDEROS Performing Organization Address City/[facility]/ZIP Co de Phone Number [address] [address], [facility] [phone] * (ABNORMAL) PHOSPHORUS BLOOD (09/19/2022 8:16 AM CDT) Phosphorus 2.7(L) 2.8 - 5.1 mg/dL 09/19/2022 9:01 AM CDT [facility] Blood BLOOD SPECIMEN / Unknown Lab Venipuncture / Unknown 09/19/2022 8:16 AM CDT 09/19/2022 8:31 AM CDT Artemio Abarca MD LAB - CHEMISTRY MARSHAL MEDEROS Performing Organization Address City/[facility]/ZIP Co de Phone Number [address] [address], [facility] [phone] * MAGNESIUM BLOOD (09/19/2022 8:16 AM CDT) Magnesium 1.7 1.6 - 2.6 mg/dL 09/19/2022 9:01 AM CDT [facility] Blood BLOOD SPECIMEN / Unknown Lab Venipuncture / Unknown 09/19/2022 8:16 AM CDT 09/19/2022 8:31 AM CDT Artemio Abarca MD LAB - CHEMISTRY MARSHAL MEDEROS [address] [address], [place] [phone] * CULTURE BLOOD (09/19/2022 8:16 AM CDT) Culture No growth day 5 JELLY 09/24/2022 11:00 AM CDT [facility] Blood PERIPHERAL BLOOD / Unknown Lab Venipuncture / Unknown 09/19/2022 8:16 AM CDT 09/19/2022 8:26 AM CDT Petra Fuentes MD LAB - MICROBIOLOGY O RDERABLES [facility] [address] [place] [address], [facility] [phone] * (ABNORMAL) GLUCOSE - POINT OF CARE (09/19/2022 7:55 AM CDT) Glucose WB/POC 127(H) 70 - 115 mg/dL 09/19/2022 8:00 AM CDT [facility] Specimen Type Cap Fingerstick 2022 8:00 AM CDT [facility] Blood BLOOD SPECIMEN / Unknown 09/19/2022 7:55 AM CDT 09/19/2022 8:00 AM CDT Petra Fuentes MD LAB - POINT OF CARE ORDERABLES Performing Organization Address City/[facility]/ZIP Co de Phone Number [place] [address] [place] [address], [place] [phone] * (ABNORMAL) GLUCOSE - POINT OF CARE (09/19/2022 6:25 AM CDT) Glucose WB/POC 139(H) 70 - 115 mg/dL 09/19/2022 6:26 AM CDT [facility] Specimen Type Arterial 09/19/2022 6:26 AM CDT [facility] Blood BLOOD SPECIMEN / Unknown 09/19/2022 6:25 AM CDT 09/19/2022 6:26 AM CDT Petra Fuentes MD LAB - POINT OF CARE ORDERABLES [facility] [address] [place] [address], [place] [phone] * XR CHEST 1VW PORTABLE (09/19/2022 4:30 AM CDT) Anatomical Region Laterality Modality Chest Radiographic Cynthia ging 09/19/2022 7:53 AM CDT Narrative 09/19/2022 5:10 PM CDT PROCEDURE: ??XR CHEST 1VW PORTABLE, DATE/TIME OF EXAM: ??09/19/2022 4:30 AM, LOCATION ??[facility] INDICATION: R06.02: SOB (shortness of breath) R91.8: Pulmonary infiltrate J96.21: Acute on chronic respiratory failure with hypoxia (CMS/HCC) ADDITIONAL CLINICAL INFORMATION: Ordering Provider Reason For Exam: ??interval mucous plug COMPARISON: Multiple priors, the most recent chest x-ray from 09/18/2022. FINDINGS/IMPRESSION: Tracheostomy tube terminates in the midthoracic trachea Interval resolution of the total right lung atelectasis. Small volume right pleural effusion with associated mild compressive atelectasis and/consolidation. There is no pneumothorax. The cardiomediastinal silhouette is normal. No mediastinal shift. > Dictated by Nash Arreola MD (residential mortgage manager). John Thomason MD have personally reviewed and interpreted this examination/study. > Interpreting Provider: John Graham MD on 09/19/2022 5:10 PM Procedure Note John Graham MD - 09/19/2022 PROCEDURE: XR CHEST 1VW PORTABLE, DATE/TIME OF EXAM: 09/19/2022 4:30AM, LOCATION [facility] INDICATION: R06.02: SOB (shortness of breath) R91.8: Pulmonary infiltrate J96.21: Acute on chronic respiratory failure with hypoxia (CMS/HCC) ADDITIONAL CLINICAL INFORMATION: Ordering Provider Reason For Exam: interval mucous plug COMPARISON: Multiple priors, the most recent chest x-ray from 09/18/2022. FINDINGS/IMPRESSION: Tracheostomy tube terminates in the midthoracic trachea Interval resolution of the total right lung atelectasis. Small volumeright pleural effusion with associated mild compressive atelectasis and/consolidation. There is no pneumothorax. The cardiomediastinal silhouette is normal. No mediastinal shift. > Dictated by Nash Arreola MD (residential mortgage manager). John Thomason MD have personally reviewed and interpreted this examination/study. > Interpreting Provider: John Graham MD on 09/19/2022 5:10 PM Petra Fuentes MD DIAGNOSTIC IMAGING O RDERABLES * (ABNORMAL) GLUCOSE - POINT OF CARE (09/19/2022 12:42 AM CDT) Glucose WB/POC 133(H) 70 - 115 mg/dL 09/19/2022 12:46 AM CDT [facility] Specimen Type Arterial 09/19/2022 12:46 AM CDT [facility] Blood BLOOD SPECIMEN / Unknown 09/19/2022 12:42 AM CDT 09/19/2022 12:46 AM CDT Petra Fuentes MD LAB - POINT OF CARE ORDERABLES [facility] [address] [place] [address], [place] [phone] * GLUCOSE - POINT OF CARE (09/18/2022 4:38 PM CDT) Glucose WB/POC 107 70 - 115 mg/dL 09/18/2022 4:39 PM CDT [facility] Specimen Type Cap Fingerstick 2022 4:39 PM CDT [facility] Blood BLOOD SPECIMEN / Unknown 09/18/2022 4:38 PM CDT 09/18/2022 4:38 PM CDT Petra Fuentes MD LAB - POINT OF CARE ORDERABLES Performing Organization Address City/[facility]/ZIP Co de Phone Number [facility] [address] [place] [phone], [place] [phone] * CULTURE BLOOD (09/18/2022 2:51 PM CDT) Culture No growth day 5 JELLY 09/23/2022 4:00 PM CDT [facility] Blood PERIPHERAL BLOOD / Unknown Lab Venipuncture / Unknown 09/18/2022 2:51 PM CDT 09/18/2022 2:58 PM CDT Petra Fuentes MD LAB - MICROBIOLOGY O RDERABLES [facility] [address] [place] [address], [place] [phone] * (ABNORMAL) CBC W AUTO DIFFERENTIAL (09/18/2022 2:51 PM CDT) WBC 14.1(H) 3.5 - 10.5 10? 3 /uL 09/18/2022 3:30 PM [facility] RBC 3.65(L) 4.30 - 5.70 10? 6 /uL 09/18/2022 3:30 PM [facility] Hemoglobin 11.5(L) 12.0 - 17.6 g/dL 09/18/2022 3:30 PM [facility] Hematocrit 35.8 35.2 - 51.7 % 09/18/2022 3:30 PM [facility] MCV 98.1 80.7 - 98.3 fL 09/18/2022 3:30 PM [facility] MCH 31.5 26.7 - 34.0 pg 09/18/2022 3:30 PM [facility] MCHC 32.1 30.8 - 35.9 g/dL 09/18/2022 3:30 PM [facility] RDW-SD 51.4(H) 36.0 - 50.0 fL 09/18/2022 3:30 PM [facility] RDW-CV 14.2 11.2 - 14.8 % 09/18/2022 3:30 PM [facility] Platelet Count 206 150 - 400 10? 3 /uL 09/18/2022 3:30 PM [facility] MPV 12.7 9.4 - 12.9 fL 09/18/2022 3:30 PM [facility] nRBC Absolute 0.00 0 10? 3 /uL 09/18/2022 3:30 PM [facility] nRBC Auto 0.0 0 /100 WBC 09/18/2022 3:30 PM [facility] Neutrophils % 68.7 35.0 - 70.0 % 09/18/2022 3:30 PM [facility] Lymphocytes % 18.9(L) 20.0 - 43.0 % 09/18/2022 3:30 PM [facility] Monocytes % 11.1 5.0 - 13.0 % 09/18/2022 3:30 PM CDT [facility] Eosinophils % 0.8 0.0 - 6.0 % 09/18/2022 3:30 PM CDT [facility] Basophil % 0.2 0.0 - 2.0 % 09/18/2022 3:30 PM CDT [facility] Neutrophils Absolute 9.70(H) 1.60 - 7.00 10? 3 /uL 09/18/2022 3:30 PM CDT [facility] Lymphocyte Absolute 2.66 1.10 - 3.90 10? 3 /uL 09/18/2022 3:30 PM CDT [facility] Monocytes Absolute 1.57(H) 0.26 - 1.07 10? 3 /uL 09/18/2022 3:30 PM CDT [facility] Eosinophils Absolute 0.11 0.00 - 0.47 10? 3 /uL 09/18/2022 3:30 PM CDT [facility] Basophils Absolute 0.03 0.00 - 0.08 10? 3 /uL 09/18/2022 3:30 PM CDT [facility] Immature Granulocytes % 0.3 0.0 - 1.0 % 09/18/2022 3:30 PM CDT [facility] Immature Granulocytes Absolute 0.04 09/18/2022 3:30 PM CDT [facility] Blood BLOOD SPECIMEN / Unknown Lab Venipuncture / Unknown 09/18/2022 2:51 PM CDT 09/18/2022 2:59 PM CDT Petra Fuentes MD LAB - HEMATOLOGY ORD ERABLES [facility] [address] [place] [address], [facility] [phone] * TROPONIN-I HIGH SENSITIVE (09/18/2022 2:51 PM CDT) Troponin I High Sensitive 7 <=35 ng/L 09/18/2022 3:34 PM CDT [facility] Blood BLOOD SPECIMEN / Unknown Lab Venipuncture / Unknown 09/18/2022 2:51 PM CDT 09/18/2022 2:59 PM CDT Petra Fuentes MD LAB - CHEMISTRY MARSHAL Diana Organization Address City/State/ZIP Co de Phone Number [facility] [address] [place] [phone], [facility] [phone] * (ABNORMAL) CULTURE SPUTUM+GRAM STAIN (09/18/2022 1:46 PM CDT) Culture Heavy Acinetobacter baumannii(A) JELLY 09/22/2022 7:27 AM CDT [facility] Comment: Isolate is multi drug resistant organism (MDRO). Isolate is carbapenem resistant Culture Light Pseudomonas aeruginosa(A) JELLY 09/22/2022 7:27 AM CDT [facility] Comment: Isolate is multi drug resistant organism (MDRO). Isolate is carbapenem resistant Gram Stain Light Polymorphonuclear cells 09/22/2022 7:27 AM CDT [facility] Gram Stain Light Gram-positive cocci 09/22/2022 7:27 AM CDT [facility] Gram Stain Light Gram-negative coccobacilli 09/22/2022 7:27 AM CDT [facility] Microbiology SPECIMEN FROM ENDOTRACHEAL TUBE / Unknown Collection / Unknown 09/18/2022 1:46 PM CDT 09/18/2022 2:07 PM CDT Narrative [facility] - 09/22/2022 7:27 AM CDT This isolate is carbapenem resistant. Contact precautions required. Infectious Disease consult recommended. This isolate is a multidrug resistant organism (MDRO). MDROs are resistant to 3 or more classes of antibiotics. Contact Precautions required. Infectious Diseases consult recommended. Organism Antibiotic Method Susceptibility Acinetobacter baumannii Ampicillin-sulbactam JELLY 16 ug/mL: Intermediate Acinetobacter baumannii Cefepime JELLY 32 ug/mL: Resistant Acinetobacter baumannii Ceftazidime JELLY 16 [...] to amoxicillin/clavulanic acid (Augmentin) cannot be inferred. Pseudomonas aeruginosa Amikacin JELLY <=2 ug/mL: Susceptible Pseudomonas aeruginosa Cefepime JELLY 2 ug/mL: Intermediate Pseudomonas aeruginosa Ceftazidime JELLY 16 ug/mL: Intermediate Pseudomonas aeruginosa Ciprofloxacin JELLY <=0.25 ug/mL: Susceptible Pseudomonas aeruginosa Gentamicin JELLY <=1 ug/mL: Susceptible Pseudomonas aeruginosa Meropenem JELLY 8 ug/mL: Resistant Pseudomonas aeruginosa Piperacillin-tazobactam JELLY 32 ug/mL: Intermediate Pseudomonas aeruginosa Tobramycin JELLY <=1 ug/mL: Susceptible Petra Fuentes MD LAB - MICROBIOLOGY O RDERABLES Performing Organization Address [facility] Co de Phone Number [facility] [address] [place], [address] [phone] * EKG 12-LEAD (09/18/2022 9:03 AM CDT) Ventricular Rate 131 BPM [facility]USE Atrial Rate 131 BPM [facility] M[facility] P-R Interval 146 ms [facility]USE QRS Duration ms 76 ms [facility] Q-T Interval ms 302 ms [facility] MUSE QTC Calculation (Bezet) 445 ms [facility] MUSE Calculated P Boswell 57 degrees [facility] MUSE Calculated R Boswell 26 degrees [facility] MUSE Calculated T Boswell 88 degrees [facility]USE Interpretation EKG SINUS TACHYCARDIA NONSPECIFIC T WAVE ABNORMALITY ABNORMAL ECG COMPARED TO PRIOR EKG ??september 11 2022 NO SIGNIFICANT CHANGE WAS FOUND Confirmed by Misael Ritter ([id number]) on 09/26/2022 2:11:13 PM [facility] MUSE 09/18/2022 9:03 AM CDT 09/26/2022 2:11 PM CDT Petra Fuentes MD ECG ORDERABLES Performing Organization Address [facility] de Phone Number [facility] * XR CHEST 1VW PORTABLE (09/18/2022 8:55 AM CDT) Anatomical Region Laterality Modality Chest Radiographic Cynthia ging 09/18/2022 10:2 3 AM CDT Narrative 09/18/2022 9:05 PM CDT PROCEDURE: ??XR CHEST 1VW PORTABLE, DATE/TIME OF EXAM: ??09/18/2022 8:55 AM, LOCATION ??[facility] INDICATION: R50.81: Fever in other diseases ADDITIONAL CLINICAL INFORMATION: Ordering Provider Reason For Exam: ??developing pneumonia? COMPARISON: Chest radiograph 09/12/2022 FINDINGS/IMPRESSION: Lines, tubes, hardware: * Tracheostomy tube terminates in the midthoracic trachea. There is interval worsening of the yazl-rm-[id number] mediastinal shift secondary to complete collapse of the right lung with cup of the right mainstem bronchus consistent with mucous plugging. Small amount of underlying right-sided pleural effusion cannot be entirely excluded. There is no pneumothorax. The cardiomediastinal silhouette shifted to the right hemithorax. The visible bony thorax is intact. Report dictated by Carrie Ashby MD, MD (residential mortgage manager). John Thomason MD have personally reviewed and interpreted this examination/study. > Interpreting Provider: John Graham MD on 09/18/2022 9:05 PM Procedure Note John Graham MD - 09/18/2022 PROCEDURE: XR CHEST 1VW PORTABLE, DATE/TIME OF EXAM: 09/18/2022 8:55AM, LOCATION [facility] INDICATION: R50.81: Fever in other diseases ADDITIONAL CLINICAL INFORMATION: Ordering Provider Reason For Exam: developing pneumonia? COMPARISON: Chest radiograph 09/12/2022 FINDINGS/IMPRESSION: Lines, tubes, hardware: * Tracheostomy tube terminates in the midthoracic trachea. There is interval worsening of the qoxk-io-uykoa mediastinal shift secondary to complete collapse of the right lung with cup of the right mainstem bronchus consistent with mucous plugging. Small amount of underlying right-sided pleural effusion cannot be entirely excluded.There is no pneumothorax. The cardiomediastinal silhouette shifted to theright hemithorax. The visible bony thorax is intact. Report dictated by Carrie Ashby MD, MD (residential mortgage manager). John Thomason MD have personally reviewed and interpreted this examination/study. > Interpreting Provider: John Graham MD on 09/18/2022 9:05 PM Petra Fuentes MD DIAGNOSTIC IMAGING O RDERABLES * (ABNORMAL) GLUCOSE - POINT OF CARE (09/18/2022 7:32 AM CDT) Glucose WB/POC 132(H) 70 - 115 mg/dL 09/18/2022 7:34 AM CDT [facility] Specimen Type Cap Fingerstick 2022 7:34 AM CDT [facility] Blood BLOOD SPECIMEN / Unknown 09/18/2022 7:32 AM CDT 09/18/2022 7:33 AM CDT Petra Fuentes MD LAB - POINT OF CARE ORDERABLES [address] [address], [facility] [phone] * (ABNORMAL) GLUCOSE - POINT OF CARE (09/18/2022 6:52 AM CDT) Glucose WB/POC 163(H) 70 - 115 mg/dL 09/18/2022 6:53 AM CDT [facility] Specimen Type Cap Fingerstick 2022 6:53 AM CDT [facility] Blood BLOOD SPECIMEN / Unknown 09/18/2022 6:52 AM CDT 09/18/2022 6:53 AM CDT Petra Fuentes MD LAB - POINT OF CARE ORDERABLES [address] [address], [place] [phone] * (ABNORMAL) PHOSPHORUS BLOOD (09/18/2022 6:29 AM CDT) Phosphorus 2.4(L) 2.8 - 5.1 mg/dL 09/18/2022 7:46 AM CDT [facility] Blood BLOOD SPECIMEN / Unknown Lab Venipuncture / Unknown 09/18/2022 6:29 AM CDT 09/18/2022 7:17 AM CDT Artemio Abarca MD LAB - CHEMISTRY MARSHAL MEDEROS Performing Organization Address [facility]/ZIP Co de Phone Number [address] [address], [facility] [phone] * MAGNESIUM BLOOD (09/18/2022 6:29 AM CDT) Pathologist [facility] Magnesium 1.8 1.6 - 2.6 mg/dL 09/18/2022 7:46 AM [facility] Blood BLOOD SPECIMEN / Unknown Lab Venipuncture / Unknown 09/18/2022 6:29 AM CDT 09/18/2022 7:17 AM CDT Artemio Abarca MD LAB - CHEMISTRY MARSHAL MEDEROS Performing Organization Address [facility]/ZIP Co de Phone Number [address] [address], [facility] [phone] * (ABNORMAL) BASIC METABOLIC PANEL (CALCIUM TOTAL) (09/18/2022 6:29 AM CDT) Pathologist [facility] BUN 16 7 - 26 mg/dL 09/18/2022 7:46 AM [facility] Creatinine 0.51(L) 0.71 - 1.16 mg/dL 09/18/2022 7:46 AM [facility] Sodium 142 136 - 145 mmol/L 09/18/2022 7:46 AM [facility] Potassium 4.7(H) 3.5 - 4.5 mmol/L 09/18/2022 7:46 AM [facility] Chloride 107 98 - 107 mmol/L 09/18/2022 7:46 AM [facility] CO2 21(L) 22 - 29 mmol/L 09/18/2022 7:46 AM [facility] Glucose 136(H) 70 - 115 mg/dL 09/18/2022 7:46 AM [facility] Calcium 9.8 8.4 - 10.2 mg/dL 09/18/2022 7:46 AM CDT [facility] Anion Gap 19(H) 8 - 18 09/18/2022 7:46 AM CDT [facility] BUN/Creatinine Ratio 31(H) 7 - 23 09/18/2022 7:46 AM T [facility] Osmolality Calculated 297 270 - 300 mOsm/kg 09/18/2022 7:46 AM CDT [facility] eGFR by CKD-EPI >90 >=90 mL/min/1.7 3 m2 09/18/2022 7:46 AM CDT [facility] Blood BLOOD SPECIMEN / Unknown Lab Venipuncture / Unknown 09/18/2022 6:29 AM CDT 09/18/2022 7:17 AM CDT Artemio Abarca MD LAB - CHEMISTRY ORDByron MEDEROS Performing Organization Address City/[facility]/ZIP Co de Phone Number [address] [address], [place] [phone] * (ABNORMAL) GLUCOSE - POINT OF CARE (09/17/2022 11:48 PM CDT) Glucose WB/POC 159(H) 70 - 115 mg/dL 09/17/2022 11:51 PM CDT [facility] Specimen Type Cap Fingerstick 2022 11:51 PM CDT [facility] Blood BLOOD SPECIMEN / Unknown 09/17/2022 11:48 PM CDT 09/17/2022 11:51 PM CDT Petra Fuentes MD LAB - POINT OF CARE ORDERABLES [facility] [address] [place] [address], [place] [phone] * (ABNORMAL) GLUCOSE - POINT OF CARE (09/17/2022 11:27 AM CDT) Glucose WB/POC 153(H) 70 - 115 mg/dL 09/17/2022 11:28 AM CDT [facility] Specimen Type Cap Fingerstick 2022 11:28 AM CDT [facility] Blood BLOOD SPECIMEN / Unknown 09/17/2022 11:27 AM CDT 09/17/2022 11:28 AM CDT Petra Fuentes MD LAB - POINT OF CARE ORDERABLES [facility] [address] [place] [address], [place] [phone] * GLUCOSE - POINT OF CARE (09/17/2022 8:18 AM CDT) Glucose WB/POC 111 70 - 115 mg/dL 09/17/2022 8:19 AM CDT [facility] Specimen Type Cap Fingerstick 2022 8:19 AM CDT [facility] Blood BLOOD SPECIMEN / Unknown 09/17/2022 8:18 AM CDT 09/17/2022 8:19 AM CDT Petra Fuentes MD LAB - POINT OF CARE ORDERABLES [facility] [address] [place] [address], [place] [phone] * PHOSPHORUS BLOOD (09/17/2022 6:59 AM CDT) Phosphorus 2.8 2.8 - 5.1 mg/dL 09/17/2022 10:22 AM CDT [facility] Blood BLOOD SPECIMEN / Unknown Lab Venipuncture / Unknown 09/17/2022 6:59 AM CDT 09/17/2022 9:48 AM CDT Artemio Abarca MD LAB - CHEMISTRY MARSHAL MEDEROS [facility] [address] [place] [address], [place] [phone] * MAGNESIUM BLOOD (09/17/2022 6:59 AM CDT) Magnesium 1.6 1.6 - 2.6 mg/dL 09/17/2022 10:22 AM [facility] Blood BLOOD SPECIMEN / Unknown Lab Venipuncture / Unknown 09/17/2022 6:59 AM CDT 09/17/2022 9:48 AM CDT Artemio Abarca MD LAB - CHEMISTRY MARSHAL MEDEROS [facility] Organization Address City/State/ZIP Co de Phone Number [facility] [address] [place] [address], [facility] [phone] * (ABNORMAL) BASIC METABOLIC PANEL (CALCIUM TOTAL) (09/17/2022 6:59 AM CDT) BUN 16 7 - 26 mg/dL 09/17/2022 10:22 AM [facility] Creatinine 0.40(L) 0.71 - 1.16 mg/dL 09/17/2022 10:22 AM [facility] Sodium 136 136 - 145 mmol/L 09/17/2022 10:22 AM [facility] Potassium 4.1 3.5 - 4.5 mmol/L 09/17/2022 10:22 AM [facility] Chloride 102 98 - 107 mmol/L 09/17/2022 10:22 AM [facility] CO2 26 22 - 29 mmol/L 09/17/2022 10:22 AM [facility] Glucose 104 70 - 115 mg/dL 09/17/2022 10:22 AM [facility] Calcium 9.9 8.4 - 10.2 mg/dL 09/17/2022 10:22 AM [facility] Anion Gap 12 8 - 18 09/17/2022 10:22 AM [facility] BUN/Creatinine Ratio 40(H) 7 - 23 09/17/2022 10:22 AM [facility] Osmolality Calculated 283 270 - 300 mOsm/kg 09/17/2022 10:22 AM [facility] eGFR by CKD-EPI >90 >=90 mL/min/1.7 3 m2 09/17/2022 10:22 AM [facility] Blood BLOOD SPECIMEN / Unknown Lab Venipuncture / Unknown 09/17/2022 6:59 AM CDT 09/17/2022 9:48 AM CDT Artemio Abarca MD LAB - CHEMISTRY MARSHAL MEDEROS [facility] [address] [place] [address], [facility] [phone] * (ABNORMAL) CBC W AUTO DIFFERENTIAL (09/17/2022 6:59 AM CDT) WBC 6.7 3.5 - 10.5 10? 3 /uL 09/17/2022 10:00 AM [facility] RBC 3.50(L) 4.30 - 5.70 10? 6 /uL 09/17/2022 10:00 AM [facility] Hemoglobin 10.9(L) 12.0 - 17.6 g/dL 09/17/2022 10:00 AM [facility] Hematocrit 34.5(L) 35.2 - 51.7 % 09/17/2022 10:00 AM [facility] MCV 98.6(H) 80.7 - 98.3 fL 09/17/2022 10:00 AM [facility] MCH 31.1 26.7 - 34.0 pg 09/17/2022 10:00 AM [facility] MCHC 31.6 30.8 - 35.9 g/dL 09/17/2022 10:00 AM [facility] RDW-SD 51.1(H) 36.0 - 50.0 fL 09/17/2022 10:00 AM [facility] RDW-CV 14.2 11.2 - 14.8 % 09/17/2022 10:00 AM [facility] Platelet Count 306 150 - 400 10? 3 /uL 09/17/2022 10:00 AM [facility] MPV 12.7 9.4 - 12.9 fL 09/17/2022 10:00 AM [facility] nRBC Absolute 0.00 0 10? 3 /uL 09/17/2022 10:00 AM [facility] nRBC Auto 0.0 0 /100 WBC 09/17/2022 10:00 AM [facility] Neutrophils % 47.0 35.0 - 70.0 % 09/17/2022 10:00 AM [facility] Lymphocytes % 35.7 20.0 - 43.0 % 09/17/2022 10:00 AM [facility] Monocytes % 9.7 5.0 - 13.0 % 09/17/2022 10:00 AM [facility] Eosinophils % 6.9(H) 0.0 - 6.0 % 09/17/2022 10:00 AM [facility] Basophil % 0.6 0.0 - 2.0 % 09/17/2022 10:00 AM [facility] Neutrophils Absolute 3.13 1.60 - 7.00 10? 3 /uL 09/17/2022 10:00 AM [facility] Lymphocyte Absolute 2.38 1.10 - 3.90 10? 3 /uL 09/17/2022 10:00 AM [facility] Monocytes Absolute 0.65 0.26 - 1.07 10? 3 /uL 09/17/2022 10:00 AM [facility] Eosinophils Absolute 0.46 0.00 - 0.47 10? 3 /uL 09/17/2022 10:00 AM [facility] Basophils Absolute 0.04 0.00 - 0.08 10? 3 /uL 09/17/2022 10:00 AM [facility] Immature Granulocytes % 0.1 0.0 - 1.0 % 09/17/2022 10:00 AM [facility] Immature Granulocytes Absolute 0.01 09/17/2022 10:00 AM [facility] Blood BLOOD SPECIMEN / Unknown Lab Venipuncture / Unknown 09/17/2022 6:59 AM CDT 09/17/2022 9:48 AM [facility] Artemio Abarca MD LAB - HEMATOLOGY ORD ERABLES [facility] [address] [place] [address], [facility] [phone] * PROCALCITONIN LEVEL (09/17/2022 6:59 AM CDT) PROCALCITONIN <0.02 <=0.10 ng/mL 09/17/2022 10:29 AM CDT [facility] Blood BLOOD SPECIMEN / Unknown Lab Venipuncture / Unknown 09/17/2022 6:59 AM CDT 09/17/2022 9:47 AM CDT Narrative [facility] - 09/17/2022 10:29 AM CDT The change in procalcitonin (PCT) [...] Change in Procalcitonin Calculator is available at [email or web address] ?? If clinical picture has not improved and PCT remains high, reevaluate and consider treatment failure or other causes. Petra Fuentes MD LAB - CHEMISTRY MARSHAL MEDEROS [facility] [address] [place] [address], [place] [phone] * (ABNORMAL) GLUCOSE - POINT OF CARE (09/17/2022 6:58 AM CDT) Glucose WB/POC 132(H) 70 - 115 mg/dL 09/18/2022 11:48 AM CDT [facility] Specimen Type Cap Fingerstick 2022 11:48 AM CDT [facility] Blood BLOOD SPECIMEN / Unknown 09/17/2022 6:58 AM CDT 09/18/2022 11:48 AM CDT Petra Fuentes MD LAB - POINT OF CARE ORDERABLES [facility] [address] [place] [address], [place] [phone] * (ABNORMAL) GLUCOSE - POINT OF CARE (09/16/2022 11:40 PM CDT) Glucose WB/POC 117(H) 70 - 115 mg/dL 09/16/2022 11:45 PM CDT [facility] Specimen Type Cap Fingerstick 2022 11:45 PM CDT [facility] Blood BLOOD SPECIMEN / Unknown 09/16/2022 11:40 PM CDT 09/16/2022 11:45 PM CDT Petra Fuentes MD LAB - POINT OF CARE ORDERABLES [facility] [address] [place] [address], [place] [phone] * (ABNORMAL) GLUCOSE - POINT OF CARE (09/16/2022 5:43 PM CDT) Glucose WB/POC 121(H) 70 - 115 mg/dL 09/16/2022 5:48 PM CDT [facility] Specimen Type Cap Fingerstick 2022 5:48 PM CDT [facility] Blood BLOOD SPECIMEN / Unknown 09/16/2022 5:43 PM CDT 09/16/2022 5:48 PM CDT Petra Fuentes MD LAB - POINT OF CARE ORDERABLES [address] [address], [place] [phone] * GLUCOSE - POINT OF CARE (09/16/2022 12:04 PM CDT) Glucose WB/POC 97 70 - 115 mg/dL 09/16/2022 12:10 PM CDT [facility] Specimen Type Cap Fingerstick 2022 12:10 PM CDT [facility] Blood BLOOD SPECIMEN / Unknown 09/16/2022 12:04 PM CDT 09/16/2022 12:10 PM CDT Petra Fuentes MD LAB - POINT OF CARE ORDERABLES Performing Organization Address City/[facility]/ZIP Co de Phone Number [address] [address], [place] [phone] * PHOSPHORUS BLOOD (09/16/2022 6:28 AM CDT) Phosphorus 3.5 2.8 - 5.1 mg/dL 09/16/2022 7:19 AM CDT [facility] Blood BLOOD SPECIMEN / Unknown Lab Venipuncture / Unknown 09/16/2022 6:28 AM CDT 09/16/2022 6:53 AM CDT Artemio Abarca MD LAB - CHEMISTRY MARSHAL MEDEROS [address] [address], [place] [phone] * MAGNESIUM BLOOD (09/16/2022 6:28 AM CDT) Magnesium 1.6 1.6 - 2.6 mg/dL 09/16/2022 7:19 AM CDT [facility] Blood BLOOD SPECIMEN / Unknown Lab Venipuncture / Unknown 09/16/2022 6:28 AM CDT 09/16/2022 6:53 AM CDT Artemio Abarca MD LAB - CHEMISTRY MARSHAL MEDEROS [facility] Organization Address City/State/ZIP Co de Phone Number [facility] [address] [place] [address], [facility] [phone] * (ABNORMAL) BASIC METABOLIC PANEL (CALCIUM TOTAL) (09/16/2022 6:28 AM CDT) BUN 12 7 - 26 mg/dL 09/16/2022 7:19 AM [facility] Creatinine 0.39(L) 0.71 - 1.16 mg/dL 09/16/2022 7:19 AM [facility] Sodium 138 136 - 145 mmol/L 09/16/2022 7:19 AM [facility] Potassium 4.2 3.5 - 4.5 mmol/L 09/16/2022 7:19 AM [facility] Chloride 104 98 - 107 mmol/L 09/16/2022 7:19 AM [facility] CO2 26 22 - 29 mmol/L 09/16/2022 7:19 AM [facility] Glucose 87 70 - 115 mg/dL 09/16/2022 7:19 AM [facility] Calcium 10.5(H) 8.4 - 10.2 mg/dL 09/16/2022 7:19 AM [facility] Anion Gap 12 8 - 18 09/16/2022 7:19 AM [facility] BUN/Creatinine Ratio 31(H) 7 - 23 09/16/2022 7:19 AM [facility] Osmolality Calculated 285 270 - 300 mOsm/kg 09/16/2022 7:19 AM [facility] eGFR by CKD-EPI >90 >=90 mL/min/1.7 3 m2 09/16/2022 7:19 AM [facility] Blood BLOOD SPECIMEN / Unknown Lab Venipuncture / Unknown 09/16/2022 6:28 AM CDT 09/16/2022 6:53 AM CDT Artemio Abarca MD LAB - CHEMISTRY MARSHAL MEDEROS [facility] Organization Address City/State/ZIP Co de Phone Number [facility] [address] [place] [address], [facility] [phone] * (ABNORMAL) CBC W AUTO DIFFERENTIAL (09/16/2022 6:28 AM CDT) WBC 6.0 3.5 - 10.5 10? 3 /uL 09/16/2022 7:13 AM [facility] RBC 3.57(L) 4.30 - 5.70 10? 6 /uL 09/16/2022 7:13 AM [facility] Hemoglobin 11.5(L) 12.0 - 17.6 g/dL 09/16/2022 7:13 AM [facility] Hematocrit 35.3 35.2 - 51.7 % 09/16/2022 7:13 AM [facility] MCV 98.9(H) 80.7 - 98.3 fL 09/16/2022 7:13 AM [facility] MCH 32.2 26.7 - 34.0 pg 09/16/2022 7:13 AM [facility] MCHC 32.6 30.8 - 35.9 g/dL 09/16/2022 7:13 AM [facility] RDW-SD 51.2(H) 36.0 - 50.0 fL 09/16/2022 7:13 AM [facility] RDW-CV 14.0 11.2 - 14.8 % 09/16/2022 7:13 AM [facility] Platelet Count 285 150 - 400 10? 3 /uL 09/16/2022 7:13 AM [facility] MPV 12.3 9.4 - 12.9 fL 09/16/2022 7:13 AM [facility] nRBC Absolute 0.00 0 10? 3 /uL 09/16/2022 7:13 AM [facility] nRBC Auto 0.0 0 /100 WBC 09/16/2022 7:13 AM [facility] Neutrophils % 48.2 35.0 - 70.0 % 09/16/2022 7:13 AM [facility] Lymphocytes % 34.5 20.0 - 43.0 % 09/16/2022 7:13 AM [facility] Monocytes % 10.3 5.0 - 13.0 % 09/16/2022 7:13 AM [facility] Eosinophils % 6.1(H) 0.0 - 6.0 % 09/16/2022 7:13 AM [facility] Basophil % 0.7 0.0 - 2.0 % 09/16/2022 7:13 AM [facility] Neutrophils Absolute 2.91 1.60 - 7.00 10? 3 /uL 09/16/2022 7:13 AM [facility] Lymphocyte Absolute 2.08 1.10 - 3.90 10? 3 /uL 09/16/2022 7:13 AM [facility] Monocytes Absolute 0.62 0.26 - 1.07 10? 3 /uL 09/16/2022 7:13 AM [facility] Eosinophils Absolute 0.37 0.00 - 0.47 10? 3 /uL 09/16/2022 7:13 AM [facility] Basophils Absolute 0.04 0.00 - 0.08 10? 3 /uL 09/16/2022 7:13 AM [facility] Immature Granulocytes % 0.2 0.0 - 1.0 % 09/16/2022 7:13 AM [facility] Immature Granulocytes Absolute 0.01 09/16/2022 7:13 AM [facility] Blood BLOOD SPECIMEN / Unknown Lab Venipuncture / Unknown 09/16/2022 6:28 AM CDT 09/16/2022 6:53 AM CDT Artemio Abarca MD LAB - HEMATOLOGY ORD ERABLES [facility] [address] [place] [phone], [facility] [phone] * GLUCOSE - POINT OF CARE (09/16/2022 12:06 AM CDT) [facility] Glucose WB/POC 105 70 - 115 mg/dL 09/16/2022 12:12 AM CDT [facility] Specimen Type Cap Fingerstick 2022 12:12 AM CDT [facility] Blood BLOOD SPECIMEN / Unknown 09/16/2022 12:06 AM CDT 09/16/2022 12:12 AM CDT Petra Fuentes MD LAB - POINT OF CARE ORDERABLES [address] [address], [place] [phone] * GLUCOSE - POINT OF CARE (09/15/2022 5:44 PM CDT) Glucose WB/POC 115 70 - 115 mg/dL 09/15/2022 5:48 PM CDT [facility] Specimen Type Cap Fingerstick 2022 5:48 PM CDT [facility] Blood BLOOD SPECIMEN / Unknown 09/15/2022 5:44 PM CDT 09/15/2022 5:48 PM CDT Petra Fuentes MD LAB - POINT OF CARE ORDERABLES Performing Organization Address City/[facility]/ZIP Co de Phone Number [address] [address], [place] [phone] * (ABNORMAL) GLUCOSE - POINT OF CARE (09/15/2022 12:13 PM CDT) Glucose WB/POC 118(H) 70 - 115 mg/dL 09/15/2022 12:19 PM CDT [facility] Specimen Type Cap Fingerstick 2022 12:19 PM CDT [facility] Blood BLOOD SPECIMEN / Unknown 09/15/2022 12:13 PM CDT 09/15/2022 12:19 PM CDT Petra Fuentes MD LAB - POINT OF CARE ORDERABLES [address] [address], [place] [phone] * PHOSPHORUS BLOOD (09/15/2022 8:08 AM CDT) Phosphorus 3.2 2.8 - 5.1 mg/dL 09/15/2022 9:40 AM CDT [facility] Blood BLOOD SPECIMEN / Unknown Lab Venipuncture / Unknown 09/15/2022 8:08 AM CDT 09/15/2022 9:12 AM CDT Artemio Abarca MD LAB - CHEMISTRY MARSHAL MEDEROS Performing Organization Address City/[facility]/ZIP Co de Phone Number [address] [address], [facility] [phone] * MAGNESIUM BLOOD (09/15/2022 8:08 AM CDT) Magnesium 1.7 1.6 - 2.6 mg/dL 09/15/2022 9:40 AM CDT [facility] Blood BLOOD SPECIMEN / Unknown Lab Venipuncture / Unknown 09/15/2022 8:08 AM CDT 09/15/2022 9:12 AM CDT Artemio Abarca MD LAB - CHEMISTRY MARSHAL MEDEROS [address] [address], [facility] [phone] * (ABNORMAL) BASIC METABOLIC PANEL (CALCIUM TOTAL) (09/15/2022 8:08 AM CDT) BUN 14 7 - 26 mg/dL 09/15/2022 9:40 AM CDT [facility] Creatinine 0.36(L) 0.71 - 1.16 mg/dL 09/15/2022 9:40 AM CDT [facility] Sodium 138 136 - 145 mmol/L 09/15/2022 9:40 AM CDT [facility] Potassium 4.5 3.5 - 4.5 mmol/L 09/15/2022 9:40 AM CDT [facility] Chloride 105 98 - 107 mmol/L 09/15/2022 9:40 AM [facility] CO2 27 22 - 29 mmol/L 09/15/2022 9:40 AM [facility] Glucose 81 70 - 115 mg/dL 09/15/2022 9:40 AM [facility] Calcium 9.9 8.4 - 10.2 mg/dL 09/15/2022 9:40 AM [facility] Anion Gap 11 8 - 18 09/15/2022 9:40 AM [facility] BUN/Creatinine Ratio 39(H) 7 - 23 09/15/2022 9:40 AM [facility] Osmolality Calculated 286 270 - 300 mOsm/kg 09/15/2022 9:40 AM [facility] eGFR by CKD-EPI >90 >=90 mL/min/1.7 3 m2 09/15/2022 9:40 AM [facility] Blood BLOOD SPECIMEN / Unknown Lab Venipuncture / Unknown 09/15/2022 8:08 AM CDT 09/15/2022 9:12 AM T Artemio Abarca MD [facility] Organization Address City/State/ZIP Co de Phone Number [facility] [address] [place] [phone], [facility] [phone] * (ABNORMAL) CBC W AUTO DIFFERENTIAL (09/15/2022 8:08 AM CDT) WBC 6.6 3.5 - 10.5 10? 3 /uL 09/15/2022 9:28 AM [facility] RBC 3.20(L) 4.30 - 5.70 10? 6 /uL 09/15/2022 9:28 AM [facility] Hemoglobin 10.5(L) 12.0 - 17.6 g/dL 09/15/2022 9:28 AM [facility] Hematocrit 32.0(L) 35.2 - 51.7 % 09/15/2022 9:28 AM [facility] MCV 100.0(H) 80.7 - 98.3 fL 09/15/2022 9:28 AM [facility] MCH 32.8 26.7 - 34.0 pg 09/15/2022 9:28 AM [facility] MCHC 32.8 30.8 - 35.9 g/dL 09/15/2022 9:28 AM [facility] RDW-SD 52.2(H) 36.0 - 50.0 fL 09/15/2022 9:28 AM [facility] RDW-CV 14.2 11.2 - 14.8 % 09/15/2022 9:28 AM [facility] Platelet Count 296 150 - 400 10? 3 /uL 09/15/2022 9:28 AM [facility] MPV 13.0(H) 9.4 - 12.9 fL 09/15/2022 9:28 AM [facility] nRBC Absolute 0.00 0 10? 3 /uL 09/15/2022 9:28 AM [facility] nRBC Auto 0.0 0 /100 WBC 09/15/2022 9:28 AM [facility] Neutrophils % 51.7 35.0 - 70.0 % 09/15/2022 9:28 AM [facility] Lymphocytes % 30.2 20.0 - 43.0 % 09/15/2022 9:28 AM [facility] Monocytes % 12.2 5.0 - 13.0 % 09/15/2022 9:28 AM [facility] Eosinophils % 5.2 0.0 - 6.0 % 09/15/2022 9:28 AM [facility] Basophil % 0.5 0.0 - 2.0 % 09/15/2022 9:28 AM [facility] Neutrophils Absolute 3.41 1.60 - 7.00 10? 3 /uL 09/15/2022 9:28 AM [facility] Lymphocyte Absolute 1.99 1.10 - 3.90 10? 3 /uL 09/15/2022 9:28 AM [facility] Monocytes Absolute 0.80 0.26 - 1.07 10? 3 /uL 09/15/2022 9:28 AM [facility] Eosinophils Absolute 0.34 0.00 - 0.47 10? 3 /uL 09/15/2022 9:28 AM CDT [facility] Basophils Absolute 0.03 0.00 - 0.08 10? 3 /uL 09/15/2022 9:28 AM CDT [facility] Immature Granulocytes % 0.2 0.0 - 1.0 % 09/15/2022 9:28 AM CDT [facility] Immature Granulocytes Absolute 0.01 09/15/2022 9:28 AM CDT [facility] Blood BLOOD SPECIMEN / Unknown Lab Venipuncture / Unknown 09/15/2022 8:08 AM CDT 09/15/2022 9:12 AM CDT Artemio Abarca MD LAB - HEMATOLOGY ORD ERABLES [facility] [address] [place] [address], [place] [phone] * (ABNORMAL) GLUCOSE - POINT OF CARE (09/15/2022 5:32 AM CDT) Glucose WB/POC 127(H) 70 - 115 mg/dL 09/15/2022 5:33 AM CDT [facility] Specimen Type Arterial 09/15/2022 5:33 AM CDT [facility] Blood BLOOD SPECIMEN / Unknown 09/15/2022 5:32 AM CDT 09/15/2022 5:33 AM CDT Juan Diego Garcia MD LAB - POINT OF CARE ORDERABLES [facility] [address] [place] [address], [place] [phone] * (ABNORMAL) BLOOD GASES ART + COOX PANEL (09/14/2022 12:08 PM CDT) pH Arterial 7.43 7.35 - 7.45 pH 09/14/2022 12:16 PM CDT [facility] pO2 Arterial 79(L) 80 - 100 mmHg 09/14/2022 12:16 PM CDT [facility] pCO2 Arterial 45 35 - 45 mmHg 12:16 PM [facility] HCO3 Arterial 29.9 20.0 - 30.0 mmol/L 09/14/2022 12:16 PM [facility] BE Arterial 4.9(H) -2.0 - 2.0 mmol/L 09/14/2022 12:16 PM [facility] Oxyhemoglobin Arterial 95.1 % 09/14/2022 12:16 PM [facility] Dexoyhemoglobin (HHB) % 2.1 % 09/14/2022 12:16 PM [facility] Methemoglobin 0.8 0.0 - 2.0 % 09/14/2022 12:16 PM [facility] Carboxyhemoglobin 2.0 0.0 - 2.0 % 2022 12:16 PM [facility] O2 Content Arterial 13.6 Interpret within clinical context ml/dL 09/14/2022 12:16 PM [facility] Hemoglobin by COOX 10.1(L) 12.0 - 17.6 g/dL 09/14/2022 12:16 PM [facility] O2 Saturation Arterial 98 90 - 100 % 09/14/2022 12:16 PM [facility] FI O2 Arterial 30.0 % 09/14/2022 12:16 PM [facility] Blood, arterial ARTERIAL BLOOD SPECIMEN / Unknown Arterial Puncture / Unknown 09/14/2022 12:08 PM T 09/14/2022 12:11 PM [facility] - 09/14/2022 12:16 PM [facility] Carboxyhemoglobin Normal Concentration: Non-smokers: 0-2%; Smokers: 0-9%; Toxic: >20% Juan Diego Garcia MD LAB - BLOOD GASES OR DERABLES [facility] [address] [place] [address], [facility] [phone] * PHOSPHORUS BLOOD (09/14/2022 12:59 AM [facility]) Phosphorus 2.9 2.8 - 5.1 mg/dL 09/14/2022 1:33 AM CDT [facility] Blood BLOOD SPECIMEN / Unknown Venipuncture / Unknown 09/14/2022 12:59 AM CDT 09/14/2022 1:03 AM CDT Artemio Abarca MD LAB - CHEMISTRY MARSHAL MEDEROS Performing Organization Address City/[facility]/ZIP Co de Phone Number [facility] [address] [place] [phone], [facility] [phone] * MAGNESIUM BLOOD (09/14/2022 12:59 AM CDT) Magnesium 1.7 1.6 - 2.6 mg/dL 09/14/2022 1:33 AM [facility] Blood BLOOD SPECIMEN / Unknown Venipuncture / Unknown 09/14/2022 12:59 AM CDT 09/14/2022 1:03 AM CDT Artemio Abarca MD LAB - CHEMISTRY MARSHAL MDEEROS [facility] [address] [place] [phone], [facility] [phone] * (ABNORMAL) BASIC METABOLIC PANEL (CALCIUM TOTAL) (09/14/2022 12:59 AM CDT) BUN 14 7 - 26 mg/dL 09/14/2022 1:33 AM [facility] Creatinine 0.41(L) 0.71 - 1.16 mg/dL 09/14/2022 1:33 AM [facility] Sodium 141 136 - 145 mmol/L 09/14/2022 1:33 AM [facility] Potassium 4.2 3.5 - 4.5 mmol/L 09/14/2022 1:33 AM [facility] Chloride 106 98 - 107 mmol/L 09/14/2022 1:33 AM [facility] CO2 30(H) 22 - 29 mmol/L 09/14/2022 1:33 AM [facility] Glucose 113 70 - 115 mg/dL 09/14/2022 1:33 AM [facility] Calcium 10.1 8.4 - 10.2 mg/dL 09/14/2022 1:33 AM [facility] Anion Gap 9 8 - 18 09/14/2022 1:33 AM [facility] BUN/Creatinine Ratio 34(H) 7 - 23 09/14/2022 1:33 AM [facility] Osmolality Calculated 293 270 - 300 mOsm/kg 09/14/2022 1:33 AM [facility] eGFR by CKD-EPI >90 >=90 mL/min/1.7 3 m2 09/14/2022 1:33 AM [facility] Blood BLOOD SPECIMEN / Unknown Venipuncture / Unknown 09/14/2022 12:59 AM CDT 09/14/2022 1:03 AM T Artemio Abarca MD LAB - CHEMISTRY MARSHAL MEDEROS [facility] Organization Address City/State/ZIP Co de Phone Number [facility] [address] [place] [phone], [facility] [phone] * (ABNORMAL) CBC W AUTO DIFFERENTIAL (09/14/2022 12:59 AM CDT) WBC 6.8 3.5 - 10.5 10? 3 /uL 09/14/2022 1:14 AM [facility] RBC 3.10(L) 4.30 - 5.70 10? 6 /uL 09/14/2022 1:14 AM [facility] Hemoglobin 9.9(L) 12.0 - 17.6 g/dL 09/14/2022 1:14 AM [facility] Hematocrit 30.6(L) 35.2 - 51.7 % 09/14/2022 1:14 AM [facility] MCV 98.7(H) 80.7 - 98.3 fL 09/14/2022 1:14 AM [facility] MCH 31.9 26.7 - 34.0 pg 09/14/2022 1:14 AM [facility] MCHC 32.4 30.8 - 35.9 g/dL 09/14/2022 1:14 AM [facility] RDW-SD 51.8(H) 36.0 - 50.0 fL 09/14/2022 1:14 AM [facility] RDW-CV 14.2 11.2 - 14.8 % 09/14/2022 1:14 AM [facility] Platelet Count 283 150 - 400 10? 3 /uL 09/14/2022 1:14 AM [facility] MPV 12.2 9.4 - 12.9 fL 09/14/2022 1:14 AM [facility] nRBC Absolute 0.00 0 10? 3 /uL 09/14/2022 1:14 AM [facility] nRBC Auto 0.0 0 /100 WBC 09/14/2022 1:14 AM [facility] Neutrophils % 51.5 35.0 - 70.0 % 09/14/2022 1:14 AM [facility] Lymphocytes % 31.3 20.0 - 43.0 % 09/14/2022 1:14 AM [facility] Monocytes % 9.9 5.0 - 13.0 % 09/14/2022 1:14 AM [facility] Eosinophils % 6.6(H) 0.0 - 6.0 % 09/14/2022 1:14 AM [facility] Basophil % 0.4 0.0 - 2.0 % 09/14/2022 1:14 AM [facility] Neutrophils Absolute 3.50 1.60 - 7.00 10? 3 /uL 09/14/2022 1:14 AM [facility] Lymphocyte Absolute 2.13 1.10 - 3.90 10? 3 /uL 09/14/2022 1:14 AM [facility] Monocytes Absolute 0.67 0.26 - 1.07 10? 3 /uL 09/14/2022 1:14 AM [facility] Eosinophils Absolute 0.45 0.00 - 0.47 10? 3 /uL 09/14/2022 1:14 AM [facility] Basophils Absolute 0.03 0.00 - 0.08 10? 3 /uL 09/14/2022 1:14 AM [facility] Immature Granulocytes % 0.3 0.0 - 1.0 % 09/14/2022 1:14 AM CDT [facility] Immature Granulocytes Absolute 0.02 09/14/2022 1:14 AM CDT [facility] Blood BLOOD SPECIMEN / Unknown Venipuncture / Unknown 09/14/2022 12:59 AM CDT 09/14/2022 1:03 AM CDT Artemio Abarca MD LAB - HEMATOLOGY ORD ERABLES Performing Organization Address City/[facility]/ZIP Co de Phone Number [address] [address], [place] [phone] * (ABNORMAL) GLUCOSE - POINT OF CARE (09/13/2022 11:05 PM CDT) Glucose WB/POC 148(H) 70 - 115 mg/dL 09/13/2022 11:05 PM CDT [facility] Specimen Type Cap Fingerstick 2022 11:05 PM CDT [facility] Blood BLOOD SPECIMEN / Unknown 09/13/2022 11:05 PM CDT 09/13/2022 11:05 PM CDT Juan Diego Garcia MD LAB - POINT OF CARE ORDERABLES Performing Organization Address [facility]/ZIP Co de Phone Number [address] [address], [place] [phone] * GLUCOSE - POINT OF CARE (09/13/2022 6:54 PM CDT) Glucose WB/POC 98 70 - 115 mg/dL 09/13/2022 6:59 PM CDT [facility] Specimen Type Cap Fingerstick 2022 6:59 PM CDT [facility] Blood BLOOD SPECIMEN / Unknown 09/13/2022 6:54 PM CDT 09/13/2022 6:59 PM CDT Juan Diego Garcia MD LAB - POINT OF CARE ORDERABLES Performing Organization Address City/[facility]/ZIP Co de Phone Number [address] [address], [place] [phone] * GLUCOSE - POINT OF CARE (09/13/2022 1:47 PM CDT) Glucose WB/POC 113 70 - 115 mg/dL 09/13/2022 3:10 PM CDT [facility] Specimen Type Cap Fingerstick 2022 3:10 PM CDT [facility] Blood BLOOD SPECIMEN / Unknown 09/13/2022 1:47 PM CDT 09/13/2022 3:10 PM CDT Juan Diego Garcia MD LAB - POINT OF CARE ORDERABLES [facility] [address] [place] [address], [facility] [phone] * GLUCOSE - POINT OF CARE (09/13/2022 11:21 AM CDT) Glucose WB/POC 78 70 - 115 mg/dL 09/13/2022 11:22 AM CDT [facility] Specimen Type Cap Fingerstick 2022 11:22 AM CDT [facility] Blood BLOOD SPECIMEN / Unknown 09/13/2022 11:21 AM CDT 09/13/2022 11:22 AM CDT Juan Diego Garcia MD LAB - POINT OF CARE ORDERABLES [facility] [address] [place] [address], [place] [phone] * PHOSPHORUS BLOOD (09/13/2022 4:43 AM CDT) Phosphorus 3.1 2.8 - 5.1 mg/dL 09/13/2022 5:28 AM CDT [facility] Blood BLOOD SPECIMEN / Unknown Venipuncture / Unknown 09/13/2022 4:43 AM CDT 09/13/2022 5:01 AM CDT Artemio Abarca MD LAB - CHEMISTRY ORDE RABLES [facility] [address] [place] [address], [place] [phone] * MAGNESIUM BLOOD (09/13/2022 4:43 AM CDT) Magnesium 1.7 1.6 - 2.6 mg/dL 09/13/2022 5:28 AM T [facility] Blood BLOOD SPECIMEN / Unknown Venipuncture / Unknown 09/13/2022 4:43 AM CDT 09/13/2022 5:01 AM CDT Artemio Abarca MD LAB - CHEMISTRY [facility] Performing Organization Address City/[facility]/ZIP Co de Phone Number [facility] [address] [place] [address], [place] [phone] * (ABNORMAL) BASIC METABOLIC PANEL (CALCIUM TOTAL) (09/13/2022 4:43 AM CDT) BUN 16 7 - 26 mg/dL 09/13/2022 5:28 AM [facility] Creatinine 0.40(L) 0.71 - 1.16 mg/dL 09/13/2022 5:28 AM [facility] Sodium 138 136 - 145 mmol/L 09/13/2022 5:28 AM [facility] Potassium 4.4 3.5 - 4.5 mmol/L 09/13/2022 5:28 AM [facility] Chloride 105 98 - 107 mmol/L 09/13/2022 5:28 AM [facility] CO2 28 22 - 29 mmol/L 09/13/2022 5:28 AM [facility] Glucose 89 70 - 115 mg/dL 09/13/2022 5:28 AM [facility] Calcium 9.6 8.4 - 10.2 mg/dL 09/13/2022 5:28 AM [facility] Anion Gap 9 8 - 18 09/13/2022 5:28 AM [facility] BUN/Creatinine Ratio 40(H) 7 - 23 09/13/2022 5:28 AM [facility] Osmolality Calculated 287 270 - 300 mOsm/kg 09/13/2022 5:28 AM [facility] eGFR by CKD-EPI >90 >=90 mL/min/1.7 3 m2 09/13/2022 5:28 AM [facility] Blood BLOOD SPECIMEN / Unknown Venipuncture / Unknown 09/13/2022 4:43 AM CDT 09/13/2022 5:01 AM CDT Artemio Abarca MD LAB - CHEMISTRY [facility] Organization Address City/State/ZIP Co de Phone Number [facility] [address] [place] [address], [facility] [phone] * (ABNORMAL) CBC W AUTO DIFFERENTIAL (09/13/2022 4:43 AM T) WBC 6.6 3.5 - 10.5 10? 3 /uL 09/13/2022 5:26 AM [facility] RBC 2.80(L) 4.30 - 5.70 10? 6 /uL 09/13/2022 5:26 AM [facility] Hemoglobin 8.8(L) 12.0 - 17.6 g/dL 09/13/2022 5:26 AM [facility] Hematocrit 27.8(L) 35.2 - 51.7 % 09/13/2022 5:26 AM [facility] MCV 99.3(H) 80.7 - 98.3 fL 09/13/2022 5:26 AM [facility] MCH 31.4 26.7 - 34.0 pg 09/13/2022 5:26 AM [facility] MCHC 31.7 30.8 - 35.9 g/dL 09/13/2022 5:26 AM [facility] RDW-SD 53.2(H) 36.0 - 50.0 fL 09/13/2022 5:26 AM [facility] RDW-CV 14.6 11.2 - 14.8 % 09/13/2022 5:26 AM [facility] Platelet Count 248 150 - 400 10? 3 /uL 09/13/2022 5:26 AM [facility] MPV 12.9 9.4 - 12.9 fL 09/13/2022 5:26 AM [facility] nRBC Absolute 0.00 0 10? 3 /uL 09/13/2022 5:26 AM [facility] nRBC Auto 0.0 0 /100 WBC 09/13/2022 5:26 AM [facility] Neutrophils % 48.6 35.0 - 70.0 % 09/13/2022 5:26 AM [facility] Lymphocytes % 35.4 20.0 - 43.0 % 09/13/2022 5:26 AM [facility] Monocytes % 8.5 5.0 - 13.0 % 09/13/2022 5:26 AM [facility] Eosinophils % 6.7(H) 0.0 - 6.0 % 09/13/2022 5:26 AM [facility] Basophil % 0.5 0.0 - 2.0 % 09/13/2022 5:26 AM [facility] Neutrophils Absolute 3.22 1.60 - 7.00 10? 3 /uL 09/13/2022 5:26 AM [facility] Lymphocyte Absolute 2.34 1.10 - 3.90 10? 3 /uL 09/13/2022 5:26 AM [facility] Monocytes Absolute 0.56 0.26 - 1.07 10? 3 /uL 09/13/2022 5:26 AM [facility] Eosinophils Absolute 0.44 0.00 - 0.47 10? 3 /uL 09/13/2022 5:26 AM [facility] Basophils Absolute 0.03 0.00 - 0.08 10? 3 /uL 09/13/2022 5:26 AM [facility] Immature Granulocytes % 0.3 0.0 - 1.0 % 09/13/2022 5:26 AM [facility] Immature Granulocytes Absolute 0.02 09/13/2022 5:26 AM [facility] Blood BLOOD SPECIMEN / Unknown Venipuncture / Unknown 09/13/2022 4:43 AM CDT 09/13/2022 5:01 AM CDT Artemio Abarca MD LAB - HEMATOLOGY ORD ERABLES [address] [address], [place] [phone] * GLUCOSE - POINT OF CARE (09/12/2022 6:32 PM CDT) Glucose WB/POC 104 70 - 115 mg/dL 09/12/2022 6:37 PM CDT [facility] Specimen Type Cap Fingerstick 2022 6:37 PM CDT [facility] Blood BLOOD SPECIMEN / Unknown 09/12/2022 6:32 PM CDT 09/12/2022 6:36 PM CDT Juan Diego Garcia MD LAB - POINT OF CARE ORDERABLES Performing Organization Address City/[facility]/ZIP Co de Phone Number [address] [address], [place] [phone] * GLUCOSE - POINT OF CARE (09/12/2022 1:13 PM CDT) Glucose WB/POC 101 70 - 115 mg/dL 09/13/2022 12:00 PM CDT [facility] Specimen Type Cap Fingerstick 2022 12:00 PM CDT [facility] Blood BLOOD SPECIMEN / Unknown 09/12/2022 1:13 PM CDT 09/13/2022 11:59 AM CDT Juan Diego Garcia MD LAB - POINT OF CARE ORDERABLES [address] [address], [place] [phone] * XR CHEST 1VW PORTABLE (09/12/2022 11:14 AM CDT) Anatomical Region Laterality Modality Chest Radiographic Cynthia ging 09/12/2022 6:41 PM CDT Narrative 09/13/2022 11:00 AM CDT PROCEDURE: ??XR CHEST 1VW PORTABLE, DATE/TIME OF EXAM: ??09/12/2022 11:14 AM, LOCATION ??[facility] INDICATION: R91.8: Pulmonary infiltrate ADDITIONAL CLINICAL INFORMATION: Ordering Provider Reason For Exam: ??r side infiltrate COMPARISON: Multiple prior CXRs (most recent 09/09/2022) and CT of chest 09/07/2022. FINDINGS/IMPRESSION: Tracheostomy tube tip overlies upper thoracic trachea. Mild interval clearing of right basilar airspace opacification from prior exam dated 09/09/2022. The left lung is relatively clear. No pleural effusion or pneumothorax is noted. The cardiomediastinal silhouette is within normal limits given patient rotation. No acute osseous abnormality is noted. Report dictated by Clayton Baca MD (residential mortgage manager). KOBE Thomason MD have personally reviewed and interpreted this examination/study. > Interpreting Provider: KOBE RUBIO MD on 09/13/2022 11:00 AM Procedure Note Kobe Rubio MD - 09/13/2022 PROCEDURE: XR CHEST 1VW PORTABLE, DATE/TIME OF EXAM: 09/12/2022 11:14AM, LOCATION [facility] INDICATION: R91.8: Pulmonary infiltrate ADDITIONAL CLINICAL INFORMATION: Ordering Provider Reason For Exam: r side infiltrate COMPARISON: Multiple prior CXRs (most recent 09/09/2022) and CT of chest 09/07/2022. FINDINGS/IMPRESSION: Tracheostomy tube tip overlies upper thoracic trachea. Mild interval clearing of right basilar airspace opacification fromprior exam dated 09/09/2022. The left lung is relatively clear. No pleural effusion or pneumothorax is noted. The cardiomediastinal silhouette is within normal limits given patient rotation. No acute osseousabnormality is noted. Report dictated by Clayton Baca MD (residential mortgage manager). KOBE Thomason MD have personally reviewed and interpreted this examination/study. > Interpreting Provider: KOBE RUBIO MD on 09/13/2022 11:00 AM Juan Diego Garcia MD DIAGNOSTIC IMAGING O RDERABLES * GLUCOSE - POINT OF CARE (09/12/2022 9:06 AM CDT) Glucose WB/POC 107 70 - 115 mg/dL 09/13/2022 11:59 AM CDT [facility] Specimen Type Cap Fingerstick 2022 11:59 AM CDT [facility] Blood BLOOD SPECIMEN / Unknown 09/12/2022 9:06 AM CDT 09/13/2022 11:59 AM CDT Juan Diego Garcia MD LAB - POINT OF CARE ORDERABLES [address] [address], [place] [phone] * PHOSPHORUS BLOOD (09/12/2022 4:43 AM CDT) Phosphorus 2.8 2.8 - 5.1 mg/dL 09/12/2022 5:24 AM CDT [facility] Blood BLOOD SPECIMEN / Unknown Venipuncture / Unknown 09/12/2022 4:43 AM CDT 09/12/2022 4:54 AM CDT Artemio Abarca MD LAB - CHEMISTRY MARSHAL MEDEROS [address] [address], [place] [phone] * MAGNESIUM BLOOD (09/12/2022 4:43 AM CDT) Magnesium 1.8 1.6 - 2.6 mg/dL 09/12/2022 5:24 AM CDT [facility] Blood BLOOD SPECIMEN / Unknown Venipuncture / Unknown 09/12/2022 4:43 AM CDT 09/12/2022 4:54 AM CDT Artemio Abarca MD LAB - CHEMISTRY MARSHAL MEDEROS [address] [address], [place] [phone] * (ABNORMAL) BASIC METABOLIC PANEL (CALCIUM TOTAL) (09/12/2022 4:43 AM CDT) [facility] BUN 15 7 - 26 mg/dL 09/12/2022 5:24 AM [facility] Creatinine 0.39(L) 0.71 - 1.16 mg/dL 09/12/2022 5:24 AM [facility] Sodium 140 136 - 145 mmol/L 09/12/2022 5:24 AM [facility] Potassium 4.0 3.5 - 4.5 mmol/L 09/12/2022 5:24 AM [facility] Chloride 106 98 - 107 mmol/L 09/12/2022 5:24 AM [facility] CO2 28 22 - 29 mmol/L 09/12/2022 5:24 AM [facility] Glucose 87 70 - 115 mg/dL 09/12/2022 5:24 AM [facility] Calcium 9.3 8.4 - 10.2 mg/dL 09/12/2022 5:24 AM [facility] Anion Gap 10 8 - 18 09/12/2022 5:24 AM [facility] BUN/Creatinine Ratio 38(H) 7 - 23 09/12/2022 5:24 AM [facility] Osmolality Calculated 290 270 - 300 mOsm/kg 09/12/2022 5:24 AM [facility] eGFR by CKD-EPI >90 >=90 mL/min/1.7 3 m2 09/12/2022 5:24 AM [facility] Blood BLOOD SPECIMEN / Unknown Venipuncture / Unknown 09/12/2022 4:43 AM CDT 09/12/2022 4:54 AM CDT Artemio Abarca MD LAB - CHEMISTRY MARSHAL MEDEROS [facility] Organization Address City/State/ZIP Co de Phone Number [facility] [address] [place] [address], [facility] [phone] * (ABNORMAL) CBC W AUTO DIFFERENTIAL (09/12/2022 4:43 AM CDT) WBC 8.9 3.5 - 10.5 10? 3 /uL 09/12/2022 5:20 AM [facility] RBC 2.87(L) 4.30 - 5.70 10? 6 /uL 09/12/2022 5:20 AM [facility] Hemoglobin 9.1(L) 12.0 - 17.6 g/dL 09/12/2022 5:20 AM [facility] Hematocrit 28.8(L) 35.2 - 51.7 % 09/12/2022 5:20 AM [facility] MCV 100.3(H) 80.7 - 98.3 fL 09/12/2022 5:20 AM [facility] MCH 31.7 26.7 - 34.0 pg 09/12/2022 5:20 AM [facility] MCHC 31.6 30.8 - 35.9 g/dL 09/12/2022 5:20 AM [facility] RDW-SD 54.9(H) 36.0 - 50.0 fL 09/12/2022 5:20 AM [facility] RDW-CV 14.8 11.2 - 14.8 % 09/12/2022 5:20 AM [facility] Platelet Count 238 150 - 400 10? 3 /uL 09/12/2022 5:20 AM [facility] MPV 12.9 9.4 - 12.9 fL 09/12/2022 5:20 AM [facility] nRBC Absolute 0.00 0 10? 3 /uL 09/12/2022 5:20 AM [facility] nRBC Auto 0.0 0 /100 WBC 09/12/2022 5:20 AM [facility] Neutrophils % 56.1 35.0 - 70.0 % 09/12/2022 5:20 AM [facility] Lymphocytes % 28.7 20.0 - 43.0 % 09/12/2022 5:20 AM [facility] Monocytes % 8.4 5.0 - 13.0 % 09/12/2022 5:20 AM [facility] Eosinophils % 6.2(H) 0.0 - 6.0 % 09/12/2022 5:20 AM CDT [facility] Basophil % 0.3 0.0 - 2.0 % 09/12/2022 5:20 AM CDT [facility] Neutrophils Absolute 4.97 1.60 - 7.00 10? 3 /uL 09/12/2022 5:20 AM CDT [facility] Lymphocyte Absolute 2.55 1.10 - 3.90 10? 3 /uL 09/12/2022 5:20 AM CDT [facility] Monocytes Absolute 0.75 0.26 - 1.07 10? 3 /uL 09/12/2022 5:20 AM T [facility] Eosinophils Absolute 0.55(H) 0.00 - 0.47 10? 3 /uL 09/12/2022 5:20 AM CDT [facility] Basophils Absolute 0.03 0.00 - 0.08 10? 3 /uL 09/12/2022 5:20 AM CDT [facility] Immature Granulocytes % 0.3 0.0 - 1.0 % 09/12/2022 5:20 AM CDT [facility] Immature Granulocytes Absolute 0.03 09/12/2022 5:20 AM T [facility] Blood BLOOD SPECIMEN / Unknown Venipuncture / Unknown 09/12/2022 4:43 AM CDT 09/12/2022 4:54 AM CDT Artemio Abarca MD LAB - HEMATOLOGY ORD ERABLES [facility] [address] [place] [address], [facility] [phone] * (ABNORMAL) GLUCOSE - POINT OF CARE (09/11/2022 5:04 PM CDT) [facility] Glucose WB/POC 121(H) 70 - 115 mg/dL 09/11/2022 5:26 PM CDT [facility] Specimen Type Cap Fingerstick 2022 5:26 PM CDT [facility] Blood BLOOD SPECIMEN / Unknown 09/11/2022 5:04 PM CDT 09/11/2022 5:26 PM CDT Juan Diego Garcia MD LAB - POINT OF CARE ORDERABLES Performing Organization Address [facility] Co de Phone Number [facility] [address] [place] [address], [place] [phone] * EKG 12-LEAD (09/11/2022 1:14 PM CDT) Ventricular Rate 102 BPM [facility] MUSE Atrial Rate 102 BPM [facility] MUSE P-R Interval 144 ms [facility] M[facility] QRS Duration ms 76 ms [facility] MUSE Q-T Interval ms 320 ms [facility] MUSE QTC Calculation (Bezet) 417 ms [facility] MUSE Calculated P Boswell 77 degrees SL MUSE Calculated R Boswell 25 degrees [facility] MUSE Calculated T Boswell 91 degrees [facility] MUSE Interpretation EKG SINUS TACHYCARDIA SEPTAL INFARCT , AGE UNDETERMINED ABNORMAL ECG WHEN COMPARED WITH ECG OF 11-SEP-2022 13:13, MANUAL COMPARISON REQUIRED, DATA IS UNCONFIRMED Confirmed by LINNEA BERNARD MD ([id number]) on 09/12/2022 8:30:22 AM [facility] 09/11/2022 1:14 PM CDT 09/12/2022 8:30 AM CDT Juan Diego Garcia MD ECG ORDERABLES Performing Organization Address [facility] de Phone Number [facility] MUSE * PHOSPHORUS BLOOD (09/11/2022 4:35 AM CDT) Pathologist [facility] Phosphorus 3.1 2.8 - 5.1 mg/dL 09/11/2022 5:15 AM CDT [facility] Blood BLOOD SPECIMEN / Unknown Venipuncture / Unknown 09/11/2022 4:35 AM CDT 09/11/2022 4:48 AM CDT Artemio Abarca MD LAB - CHEMISTRY MARSHAL MEDEROS Performing Organization Address [facility] Co de Phone Number [facility] [address] [place] [phone], [place] [phone] * MAGNESIUM BLOOD (09/11/2022 4:35 AM CDT) Pathologist [facility] Magnesium 1.7 1.6 - 2.6 mg/dL 09/11/2022 5:15 AM [facility] Blood BLOOD SPECIMEN / Unknown Venipuncture / Unknown 09/11/2022 4:35 AM CDT 09/11/2022 4:48 AM CDT Artemio Abarca MD LAB - CHEMISTRY MARSHAL MEDEROS [facility] Organization Address City/State/ZIP Co de Phone Number [facility] [address] [place] [address], [facility] [phone] * (ABNORMAL) BASIC METABOLIC PANEL (CALCIUM TOTAL) (09/11/2022 4:35 AM CDT) Pathologist [facility] BUN 20 7 - 26 mg/dL 09/11/2022 5:15 AM [facility] Creatinine 0.39(L) 0.71 - 1.16 mg/dL 09/11/2022 5:15 AM [facility] Sodium 139 136 - 145 mmol/L 09/11/2022 5:15 AM [facility] Potassium 4.5 3.5 - 4.5 mmol/L 09/11/2022 5:15 AM [facility] Chloride 105 98 - 107 mmol/L 09/11/2022 5:15 AM [facility] CO2 28 22 - 29 mmol/L 09/11/2022 5:15 AM [facility] Glucose 95 70 - 115 mg/dL 09/11/2022 5:15 AM [facility] Calcium 9.4 8.4 - 10.2 mg/dL 09/11/2022 5:15 AM [facility] Anion Gap 11 8 - 18 09/11/2022 5:15 AM [facility] BUN/Creatinine Ratio >50(H) 7 - 23 09/11/2022 5:15 AM [facility] Osmolality Calculated 290 270 - 300 mOsm/kg 09/11/2022 5:15 AM [facility] eGFR by CKD-EPI >90 >=90 mL/min/1.7 3 m2 09/11/2022 5:15 AM [facility] Blood BLOOD SPECIMEN / Unknown Venipuncture / Unknown 09/11/2022 4:35 AM CDT 09/11/2022 4:48 AM CDT Artemio Abarca MD LAB - CHEMISTRY MARSHAL MEDEROS [facility] [address] [place] [address], [facility] [phone] * (ABNORMAL) CBC W AUTO DIFFERENTIAL (09/11/2022 4:35 AM CDT) WBC 9.1 3.5 - 10.5 10? 3 /uL 09/11/2022 5:09 AM [facility] RBC 2.76(L) 4.30 - 5.70 10? 6 /uL 09/11/2022 5:09 AM [facility] Hemoglobin 8.9(L) 12.0 - 17.6 g/dL 09/11/2022 5:09 AM [facility] Hematocrit 27.3(L) 35.2 - 51.7 % 09/11/2022 5:09 AM [facility] MCV 98.9(H) 80.7 - 98.3 fL 09/11/2022 5:09 AM [facility] MCH 32.2 26.7 - 34.0 pg 09/11/2022 5:09 AM [facility] MCHC 32.6 30.8 - 35.9 g/dL 09/11/2022 5:09 AM [facility] RDW-SD 54.5(H) 36.0 - 50.0 fL 09/11/2022 5:09 AM [facility] RDW-CV 15.1(H) 11.2 - 14.8 % 09/11/2022 5:09 AM [facility] Platelet Count 223 150 - 400 10? 3 /uL 09/11/2022 5:09 AM [facility] MPV 12.2 9.4 - 12.9 fL 09/11/2022 5:09 AM [facility] nRBC Absolute 0.00 0 10? 3 /uL 09/11/2022 5:09 AM [facility] nRBC Auto 0.0 0 /100 WBC 09/11/2022 5:09 AM [facility] Neutrophils % 65.1 35.0 - 70.0 % 09/11/2022 5:09 AM [facility] Lymphocytes % 19.8(L) 20.0 - 43.0 % 09/11/2022 5:09 AM [facility] Monocytes % 9.8 5.0 - 13.0 % 09/11/2022 5:09 AM [facility] Eosinophils % 4.8 0.0 - 6.0 % 09/11/2022 5:09 AM [facility] Basophil % 0.3 0.0 - 2.0 % 09/11/2022 5:09 AM [facility] Neutrophils Absolute 5.91 1.60 - 7.00 10? 3 /uL 09/11/2022 5:09 AM [facility] Lymphocyte Absolute 1.80 1.10 - 3.90 10? 3 /uL 09/11/2022 5:09 AM [facility] Monocytes Absolute 0.89 0.26 - 1.07 10? 3 /uL 09/11/2022 5:09 AM [facility] Eosinophils Absolute 0.44 0.00 - 0.47 10? 3 /uL 09/11/2022 5:09 AM [facility] Basophils Absolute 0.03 0.00 - 0.08 10? 3 /uL 09/11/2022 5:09 AM [facility] Immature Granulocytes % 0.2 0.0 - 1.0 % 09/11/2022 5:09 AM [facility] Immature Granulocytes Absolute 0.02 09/11/2022 5:09 AM [facility] Blood BLOOD SPECIMEN / Unknown Venipuncture / Unknown 09/11/2022 4:35 AM CDT 09/11/2022 4:48 AM T Artemio Abarca MD LAB - HEMATOLOGY ORD ERABLES [facility] [address] [place] [address], [facility] [phone] * GLUCOSE - POINT OF CARE (09/10/2022 5:59 PM CDT) Glucose WB/POC 102 70 - 115 mg/dL 09/10/2022 5:59 PM CDT [facility] Specimen Type Cap Fingerstick 2022 5:59 PM CDT [facility] Blood BLOOD SPECIMEN / Unknown 09/10/2022 5:59 PM CDT 09/10/2022 5:59 PM CDT Juan Diego Garcia MD LAB - POINT OF CARE ORDERABLES [facility] [address] [place] [address], [facility] [phone] * (ABNORMAL) GLUCOSE - POINT OF CARE (09/10/2022 11:39 AM CDT) Glucose WB/POC 135(H) 70 - 115 mg/dL 09/10/2022 11:40 AM CDT [facility] Specimen Type Cap Fingerstick 2022 11:40 AM CDT [facility] Blood BLOOD SPECIMEN / Unknown 09/10/2022 11:39 AM CDT 09/10/2022 11:40 AM CDT Juan Diego Garcia MD LAB - POINT OF CARE ORDERABLES [facility] [address] [place] [address], [facility] [phone] * VANCOMYCIN LEVEL TROUGH (09/10/2022 9:06 AM CDT) Vancomycin Trough 14.1 10.0 - 20.0 ug/mL 09/10/2022 10:05 AM CDT [facility] Blood BLOOD SPECIMEN / Unknown Venipuncture / Unknown 09/10/2022 9:06 AM CDT 09/10/2022 9:27 AM CDT Narrative [facility] - 09/10/2022 10:05 AM CDT See institution protocol. Juan Diego Garcia MD LAB - CHEMISTRY MARSHAL MEDEROS Performing Organization Address City/[facility]/ZIP Co de Phone Number [address] [address], [place] [phone] * (ABNORMAL) GLUCOSE - POINT OF CARE (09/10/2022 8:00 AM CDT) Glucose WB/POC 117(H) 70 - 115 mg/dL 09/10/2022 8:00 AM CDT [facility] Specimen Type Cap Fingerstick 2022 8:00 AM CDT [facility] Blood BLOOD SPECIMEN / Unknown 09/10/2022 8:00 AM CDT 09/10/2022 8:00 AM CDT Juan Diego Garcia MD LAB - POINT OF CARE ORDERABLES Performing Organization Address [facility]/ZIP Co de Phone Number [address] [address], [place] [phone] * PHOSPHORUS BLOOD (09/10/2022 4:43 AM CDT) Phosphorus 3.4 2.8 - 5.1 mg/dL 09/10/2022 5:21 AM CDT [facility] Blood BLOOD SPECIMEN / Unknown Venipuncture / Unknown 09/10/2022 4:43 AM CDT 09/10/2022 4:55 AM CDT Artemio Abarca MD LAB - CHEMISTRY ORDByron MEDEROS Performing Organization Address City/[facility]/ZIP Co de Phone Number [address] [address], [place] [phone] * MAGNESIUM BLOOD (09/10/2022 4:43 AM CDT) Magnesium 1.8 1.6 - 2.6 mg/dL 09/10/2022 5:21 AM CDT [facility] Blood BLOOD SPECIMEN / Unknown Venipuncture / Unknown 09/10/2022 4:43 AM CDT 09/10/2022 4:55 AM CDT Artemio Abarca MD LAB - CHEMISTRY MARSHAL MEDEROS [facility] Organization Address City/State/ZIP Co de Phone Number [facility] [address] [place] [address], [facility] [phone] * (ABNORMAL) BASIC METABOLIC PANEL (CALCIUM TOTAL) (09/10/2022 4:43 AM CDT) BUN 19 7 - 26 mg/dL 09/10/2022 5:21 AM [facility] Creatinine 0.43(L) 0.71 - 1.16 mg/dL 09/10/2022 5:21 AM [facility] Sodium 137 136 - 145 mmol/L 09/10/2022 5:21 AM [facility] Potassium 4.5 3.5 - 4.5 mmol/L 09/10/2022 5:21 AM [facility] Chloride 106 98 - 107 mmol/L 09/10/2022 5:21 AM [facility] CO2 28 22 - 29 mmol/L 09/10/2022 5:21 AM [facility] Glucose 127(H) 70 - 115 mg/dL 09/10/2022 5:21 AM [facility] Calcium 8.9 8.4 - 10.2 mg/dL 09/10/2022 5:21 AM [facility] Anion Gap 8 8 - 18 09/10/2022 5:21 AM [facility] BUN/Creatinine Ratio 44(H) 7 - 23 09/10/2022 5:21 AM [facility] Osmolality Calculated 288 270 - 300 mOsm/kg 09/10/2022 5:21 AM [facility] eGFR by CKD-EPI >90 >=90 mL/min/1.7 3 m2 09/10/2022 5:21 AM [facility] Blood BLOOD SPECIMEN / Unknown Venipuncture / Unknown 09/10/2022 4:43 AM CDT 09/10/2022 4:55 AM CDT Artemio Abarca MD LAB - CHEMISTRY MARSHAL Diana Organization Address City/State/ZIP Co de Phone Number [facility] [address] [place] [phone], [facility] [phone] * (ABNORMAL) CBC W AUTO DIFFERENTIAL (09/10/2022 4:43 AM CDT) WBC 7.8 3.5 - 10.5 10? 3 /uL 09/10/2022 5:17 AM [facility] RBC 2.89(L) 4.30 - 5.70 10? 6 /uL 09/10/2022 5:17 AM [facility] Hemoglobin 9.3(L) 12.0 - 17.6 g/dL 09/10/2022 5:17 AM [facility] Hematocrit 29.4(L) 35.2 - 51.7 % 09/10/2022 5:17 AM [facility] MCV 101.7(H) 80.7 - 98.3 fL 09/10/2022 5:17 AM [facility] MCH 32.2 26.7 - 34.0 pg 09/10/2022 5:17 AM [facility] MCHC 31.6 30.8 - 35.9 g/dL 09/10/2022 5:17 AM [facility] RDW-SD 57.9(H) 36.0 - 50.0 fL 09/10/2022 5:17 AM [facility] RDW-CV 15.4(H) 11.2 - 14.8 % 09/10/2022 5:17 AM [facility] Platelet Count 236 150 - 400 10? 3 /uL 09/10/2022 5:17 AM [facility] MPV 11.9 9.4 - 12.9 fL 09/10/2022 5:17 AM [facility] nRBC Absolute 0.00 0 10? 3 /uL 09/10/2022 5:17 AM [facility] nRBC Auto 0.0 0 /100 WBC 09/10/2022 5:17 AM [facility] Neutrophils % 60.3 35.0 - 70.0 % 09/10/2022 5:17 AM CDT [facility] Lymphocytes % 24.3 20.0 - 43.0 % 09/10/2022 5:17 AM T [facility] Monocytes % 9.5 5.0 - 13.0 % 09/10/2022 5:17 AM T [facility] Eosinophils % 5.2 0.0 - 6.0 % 09/10/2022 5:17 AM T [facility] Basophil % 0.3 0.0 - 2.0 % 09/10/2022 5:17 AM T [facility] Neutrophils Absolute 4.71 1.60 - 7.00 10? 3 /uL 09/10/2022 5:17 AM T [facility] Lymphocyte Absolute 1.90 1.10 - 3.90 10? 3 /uL 09/10/2022 5:17 AM T [facility] Monocytes Absolute 0.74 0.26 - 1.07 10? 3 /uL 09/10/2022 5:17 AM [facility] Eosinophils Absolute 0.41 0.00 - 0.47 10? 3 /uL 09/10/2022 5:17 AM [facility] Basophils Absolute 0.02 0.00 - 0.08 10? 3 /uL 09/10/2022 5:17 AM [facility] Immature Granulocytes % 0.4 0.0 - 1.0 % 09/10/2022 5:17 AM T [facility] Immature Granulocytes Absolute 0.03 09/10/2022 5:17 AM [facility] Blood BLOOD SPECIMEN / Unknown Venipuncture / Unknown 09/10/2022 4:43 AM CDT 09/10/2022 4:55 AM CDT Artemio Abraca MD LAB - HEMATOLOGY ORD ERABLES [facility] [address] [place] [phone], [facility] [phone] * XR CHEST 1VW PORTABLE (09/09/2022 4:40 AM CDT) Anatomical Region Laterality Modality Chest Radiographic Cynthia ging 09/09/2022 9:05 AM CDT Narrative 09/09/2022 4:17 PM CDT PROCEDURE: ??XR CHEST 1VW PORTABLE, DATE/TIME OF EXAM: ??09/09/2022 4:40 AM, LOCATION ??[facility] INDICATION: J96.21: Acute on chronic respiratory failure with hypoxia ([facility]/HCC) ADDITIONAL CLINICAL INFORMATION: Ordering Provider Reason For Exam: ??Mucus plugging COMPARISON: Chest x-ray dated 09/08/2022 FINDINGS/IMPRESSION: Tracheostomy tube terminates in mid thoracic trachea. Improved right middle and lower lung aeration with a persistent small right pleural effusion and residual atelectasis. Left lung remains clear. There is no pneumothorax. The cardiomediastinal silhouette is obscured. Report dictated by Usman Arce MD, (residential mortgage manager). Bebo Thomason MD have personally reviewed and interpreted this examination/study. > Interpreting Provider: Bebo Kuo MD on 09/09/2022 4:17 PM Procedure Note Bebo Kuo MD - 09/09/2022 PROCEDURE: XR CHEST 1VW PORTABLE, DATE/TIME OF EXAM: 09/09/2022 4:40AM, LOCATION [facility] INDICATION: J96.21: Acute on chronic respiratory failure with hypoxia ([facility]/HCC) ADDITIONAL CLINICAL INFORMATION: Ordering Provider Reason For Exam: Mucus plugging COMPARISON: Chest x-ray dated 09/08/2022 FINDINGS/IMPRESSION: Tracheostomy tube terminates in mid thoracic trachea. Improved right middle and lower lung aeration with a persistent smallright pleural effusion and residual atelectasis. Left lung remains clear.There is no pneumothorax. The cardiomediastinal silhouette is obscured. Report dictated by Usman Arce MD, (residential mortgage manager). Bebo Thomason MD have personally reviewed and interpreted this examination/study. > Interpreting Provider: Bebo Kuo MD on 34:17 PM Juan Diego Garcia MD DIAGNOSTIC IMAGING O RDERABLES * (ABNORMAL) PHOSPHORUS BLOOD (09/09/2022 4:15 AM CDT) Phosphorus 2.4(L) 2.8 - 5.1 mg/dL 09/09/2022 5:18 AM CDT [facility] Blood BLOOD SPECIMEN / Unknown Venipuncture / Unknown 09/09/2022 4:15 AM CDT 09/09/2022 4:34 AM CDT Artemio Abarca MD LAB - CHEMISTRY [facility] [address] [address], [facility] [phone] * MAGNESIUM BLOOD (09/09/2022 4:15 AM CDT) Pathologist [facility] Magnesium 1.7 1.6 - 2.6 mg/dL 09/09/2022 5:18 AM CDT [facility] Blood BLOOD SPECIMEN / Unknown Venipuncture / Unknown 09/09/2022 4:15 AM CDT 09/09/2022 4:34 AM CDT Artemio Abarca MD LAB - CHEMISTRY [facility] [address] [address], [place] [phone] * (ABNORMAL) BASIC METABOLIC PANEL (CALCIUM TOTAL) (09/09/2022 4:15 AM CDT) BUN 18 7 - 26 mg/dL 09/09/2022 5:18 AM CDT [facility] Creatinine 0.45(L) 0.71 - 1.16 mg/dL 09/09/2022 5:18 AM CDT [facility] Sodium 139 136 - 145 mmol/L 09/09/2022 5:18 AM CDT [facility] Potassium 4.2 3.5 - 4.5 mmol/L 09/09/2022 5:18 AM CDT [facility] Chloride 104 98 - 107 mmol/L 09/09/2022 5:18 AM [facility] CO2 26 22 - 29 mmol/L 09/09/2022 5:18 AM [facility] Glucose 133(H) 70 - 115 mg/dL 09/09/2022 5:18 AM [facility] Calcium 9.5 8.4 - 10.2 mg/dL 09/09/2022 5:18 AM [facility] Anion Gap 13 8 - 18 09/09/2022 5:18 AM [facility] BUN/Creatinine Ratio 40(H) 7 - 23 09/09/2022 5:18 AM [facility] Osmolality Calculated 292 270 - 300 mOsm/kg 09/09/2022 5:18 AM [facility] eGFR by CKD-EPI >90 >=90 mL/min/1.7 3 m2 09/09/2022 5:18 AM [facility] Blood BLOOD SPECIMEN / Unknown Venipuncture / Unknown 09/09/2022 4:15 AM CDT 09/09/2022 4:34 AM CDT Artemio Abarca MD LAB - CHEMISTRY [facility] Organization Address City/State/ZIP Co de Phone Number [facility] [address] [place] [id number], [facility] [phone] * (ABNORMAL) CBC W AUTO DIFFERENTIAL (09/09/2022 4:15 AM CDT) WBC 7.4 3.5 - 10.5 10? 3 /uL 09/09/2022 4:52 AM [facility] RBC 2.98(L) 4.30 - 5.70 10? 6 /uL 09/09/2022 4:52 AM [facility] Hemoglobin 9.5(L) 12.0 - 17.6 g/dL 09/09/2022 4:52 AM [facility] Hematocrit 29.6(L) 35.2 - 51.7 % 09/09/2022 4:52 AM [facility] MCV 99.3(H) 80.7 - 98.3 fL 09/09/2022 4:52 AM [facility] MCH 31.9 26.7 - 34.0 pg 09/09/2022 4:52 AM [facility] MCHC 32.1 30.8 - 35.9 g/dL 09/09/2022 4:52 AM [facility] RDW-SD 55.5(H) 36.0 - 50.0 fL 09/09/2022 4:52 AM [facility] RDW-CV 15.5(H) 11.2 - 14.8 % 09/09/2022 4:52 AM [facility] Platelet Count 261 150 - 400 10? 3 /uL 09/09/2022 4:52 AM [facility] MPV 11.9 9.4 - 12.9 fL 09/09/2022 4:52 AM [facility] nRBC Absolute 0.00 0 10? 3 /uL 09/09/2022 4:52 AM [facility] nRBC Auto 0.0 0 /100 WBC 09/09/2022 4:52 AM [facility] Neutrophils % 55.8 35.0 - 70.0 % 09/09/2022 4:52 AM [facility] Lymphocytes % 31.0 20.0 - 43.0 % 09/09/2022 4:52 AM [facility] Monocytes % 8.3 5.0 - 13.0 % 09/09/2022 4:52 AM [facility] Eosinophils % 3.9 0.0 - 6.0 % 09/09/2022 4:52 AM [facility] Basophil % 0.3 0.0 - 2.0 % 09/09/2022 4:52 AM [facility] Neutrophils Absolute 4.15 1.60 - 7.00 10? 3 /uL 09/09/2022 4:52 AM [facility] Lymphocyte Absolute 2.30 1.10 - 3.90 10? 3 /uL 09/09/2022 4:52 AM [facility] Monocytes Absolute 0.62 0.26 - 1.07 10? 3 /uL 09/09/2022 4:52 AM [facility] Eosinophils Absolute 0.29 0.00 - 0.47 10? 3 /uL 09/09/2022 4:52 AM CDT [facility] Basophils Absolute 0.02 0.00 - 0.08 10? 3 /uL 09/09/2022 4:52 AM CDT [facility] Immature Granulocytes % 0.7 0.0 - 1.0 % 09/09/2022 4:52 AM CDT [facility] Immature Granulocytes Absolute 0.05 09/09/2022 4:52 AM CDT [facility] Blood BLOOD SPECIMEN / Unknown Venipuncture / Unknown 09/09/2022 4:15 AM CDT 09/09/2022 4:35 AM CDT Artemio Abarca MD LAB - HEMATOLOGY ORD ERABLES [facility] [address] [place] [address], [facility] [phone] * (ABNORMAL) CULTURE SPUTUM+GRAM STAIN (09/08/2022 4:38 AM CDT) Culture Moderate Pseudomonas aeruginosa(A) JELLY 09/11/2022 6:53 AM CDT [facility] Culture Moderate normal oropharyngeal domenico JELLY 09/11/2022 6:53 AM CDT [facility] Gram Stain <10 per low power field Squamous epithelial cells 09/11/2022 6:53 AM CDT [facility] Gram Stain >= 25 per low power field Polymorphonuclear cells 09/11/2022 6:53 AM CDT [facility] Gram Stain Moderate Gram-negative bacilli 09/11/2022 6:53 AM CDT [facility] Gram Stain Rare Gram-positive bacilli 09/11/2022 6:53 AM CDT [facility] Microbiology LOWER RESPIRATORY FLUID SPECIMEN / Unknown Collection / Unknown 09/08/2022 4:38 AM CDT 09/08/2022 4:44 AM CDT Narrative Organism Antibiotic Method Susceptibility Pseudomonas aeruginosa Piperacillin-tazobactam KB Resistant Pseudomonas aeruginosa Amikacin JELLY <=2 ug/mL: Susceptible Pseudomonas aeruginosa Cefepime JELLY >=64 ug/mL: Resistant Pseudomonas aeruginosa Ceftazidime JELLY >=64 ug/mL: Resistant Pseudomonas aeruginosa Ciprofloxacin JELLY <=0.25 ug/mL: Susceptible Pseudomonas aeruginosa Gentamicin JELLY <=1 ug/mL: Susceptible Pseudomonas aeruginosa Meropenem JELLY 0.5 ug/mL: Susceptible Pseudomonas aeruginosa Tobramycin JELLY <=1 ug/mL: Susceptible Juan Diego Garcia MD LAB - MICROBIOLOGY O RDERABLES [facility] [address] [place] [address], [facility] [phone] * PHOSPHORUS BLOOD (09/08/2022 4:37 AM CDT) Phosphorus 3.6 2.8 - 5.1 mg/dL 09/08/2022 5:35 AM CDT [facility] Blood BLOOD SPECIMEN / Unknown Venipuncture / Unknown 09/08/2022 4:37 AM CDT 09/08/2022 4:46 AM CDT Artemio Abarca MD LAB - CHEMISTRY [facility]SH[facility] Performing Organization Address City/[facility]/ZIP Co de Phone Number [address] [address], [facility] [phone] * MAGNESIUM BLOOD (09/08/2022 4:37 AM CDT) Magnesium 1.8 1.6 - 2.6 mg/dL 09/08/2022 5:18 AM CDT [facility] Blood BLOOD SPECIMEN / Unknown Venipuncture / Unknown 09/08/2022 4:37 AM CDT 09/08/2022 4:46 AM CDT Artemio Abarca MD LAB - CHEMISTRY MARSHAL MEDEROS Performing Organization Address City/[facility]/ZIP Co de Phone Number [address] [address], [facility] [phone] * (ABNORMAL) BASIC METABOLIC PANEL (CALCIUM TOTAL) (09/08/2022 4:37 AM CDT) BUN 12 7 - 26 mg/dL 09/08/2022 5:18 AM [facility] Creatinine 0.48(L) 0.71 - 1.16 mg/dL 09/08/2022 5:18 AM [facility] Sodium 137 136 - 145 mmol/L 09/08/2022 5:18 AM [facility] Potassium 4.7(H) 3.5 - 4.5 mmol/L 09/08/2022 5:18 AM [facility] Chloride 103 98 - 107 mmol/L 09/08/2022 5:18 AM [facility] CO2 29 22 - 29 mmol/L 09/08/2022 5:18 AM [facility] Glucose 120(H) 70 - 115 mg/dL 09/08/2022 5:18 AM [facility] Calcium 9.8 8.4 - 10.2 mg/dL 09/08/2022 5:18 AM [facility] Anion Gap 10 8 - 18 09/08/2022 5:18 AM [facility] BUN/Creatinine Ratio 25(H) 7 - 23 09/08/2022 5:18 AM [facility] Osmolality Calculated 285 270 - 300 mOsm/kg 09/08/2022 5:18 AM [facility] eGFR by CKD-EPI >90 >=90 mL/min/1.7 3 m2 09/08/2022 5:18 AM [facility] Blood BLOOD SPECIMEN / Unknown Venipuncture / Unknown 09/08/2022 4:37 AM CDT 09/08/2022 4:46 AM CDT Artemio Abarca MD LAB - CHEMISTRY ORDE [facility] Organization Address City/State/ZIP Co de Phone Number [facility] [address] [place] [address], [facility] [phone] * (ABNORMAL) CBC W AUTO DIFFERENTIAL (09/08/2022 4:37 AM CDT) WBC 9.9 3.5 - 10.5 10? 3 /uL 09/08/2022 5:08 AM [facility] RBC 3.13(L) 4.30 - 5.70 10? 6 /uL 09/08/2022 5:08 AM [facility] Hemoglobin 10.2(L) 12.0 - 17.6 g/dL 09/08/2022 5:08 AM [facility] Hematocrit 31.5(L) 35.2 - 51.7 % 09/08/2022 5:08 AM [facility] MCV 100.6(H) 80.7 - 98.3 fL 09/08/2022 5:08 AM [facility] MCH 32.6 26.7 - 34.0 pg 09/08/2022 5:08 AM [facility] MCHC 32.4 30.8 - 35.9 g/dL 09/08/2022 5:08 AM [facility] RDW-SD 56.5(H) 36.0 - 50.0 fL 09/08/2022 5:08 AM [facility] RDW-CV 15.6(H) 11.2 - 14.8 % 09/08/2022 5:08 AM [facility] Platelet Count 269 150 - 400 10? 3 /uL 09/08/2022 5:08 AM [facility] MPV 11.4 9.4 - 12.9 fL 09/08/2022 5:08 AM [facility] nRBC Absolute 0.00 0 10? 3 /uL 09/08/2022 5:08 AM [facility] nRBC Auto 0.0 0 /100 WBC 09/08/2022 5:08 AM [facility] Neutrophils % 66.8 35.0 - 70.0 % 09/08/2022 5:08 AM [facility] Lymphocytes % 21.0 20.0 - 43.0 % 09/08/2022 5:08 AM [facility] Monocytes % 8.5 5.0 - 13.0 % 09/08/2022 5:08 AM [facility] Eosinophils % 3.0 0.0 - 6.0 % 09/08/2022 5:08 AM [facility] Basophil % 0.2 0.0 - 2.0 % 09/08/2022 5:08 AM [facility] Neutrophils Absolute 6.63 1.60 - 7.00 10? 3 /uL 09/08/2022 5:08 AM CDT [facility] Lymphocyte Absolute 2.08 1.10 - 3.90 10? 3 /uL 09/08/2022 5:08 AM CDT [facility] Monocytes Absolute 0.84 0.26 - 1.07 10? 3 /uL 09/08/2022 5:08 AM CDT [facility] Eosinophils Absolute 0.30 0.00 - 0.47 10? 3 /uL 09/08/2022 5:08 AM CDT [facility] Basophils Absolute 0.02 0.00 - 0.08 10? 3 /uL 09/08/2022 5:08 AM CDT [facility] Immature Granulocytes % 0.5 0.0 - 1.0 % 09/08/2022 5:08 AM CDT [facility] Immature Granulocytes Absolute 0.05 09/08/2022 5:08 AM CDT [facility] Blood BLOOD SPECIMEN / Unknown Venipuncture / Unknown 09/08/2022 4:37 AM CDT 09/08/2022 4:46 AM CDT Artemio Abarca MD LAB - HEMATOLOGY ORD ERABLES [facility] [address] [place] [address], [facility] [phone] * XR CHEST 1VW PORTABLE (09/08/2022 4:12 AM CDT) Anatomical Region Laterality Modality Chest Radiographic Cynthia ging 09/08/2022 10:2 4 AM CDT Narrative 09/08/2022 10:58 AM CDT PROCEDURE: ??XR CHEST 1VW PORTABLE, DATE/TIME OF EXAM: ??09/08/2022 4:12 AM, LOCATION ??[facility] INDICATION: J69.0: Aspiration pneumonitis ([facility]/HCC) ADDITIONAL CLINICAL INFORMATION: Ordering Provider Reason For Exam: ??s/p bronchoscopy COMPARISON: Chest x-ray from 09/06/2022 FINDINGS/IMPRESSION: The gastric tube terminates within the mid thoracic trachea. There is opacification of the right middle and right lower lobes as evidenced by obscuration of the right heart border in the right hemidiaphragm. This is likely compatible with complete right lower lobe and right middle lobe atelectatic collapse secondary to mucous plugging and/or aspiration of contents. There is tracheal deviation to the right likely secondary to atelectatic collapse of the right middle and right lower lobes. A component of right pleural effusion cannot be entirely excluded. The cardiomediastinal silhouette is obscured. The left hemithorax is clear. The visible bony thorax is intact. Report dictated by Shane Dougherty, ?? (residential mortgage manager). > Dictated by Shane Dougherty MD (Shot Dropper) 09/08/2022 10:27 AM Hermes Thomason MD have personally reviewed and interpreted this examination/study. > Interpreting Provider: Hermes Martinez MD on 09/08/2022 10:58 AM Procedure Note Hermes Martinez MD - 09/08/2022 PROCEDURE: XR CHEST 1VW PORTABLE, DATE/TIME OF EXAM: 09/08/2022 4:12AM, LOCATION [facility] INDICATION: J69.0: Aspiration pneumonitis ([facility]/HCC) ADDITIONAL CLINICAL INFORMATION: Ordering Provider Reason For Exam: s/p bronchoscopy COMPARISON: Chest x-ray from 09/06/2022 FINDINGS/IMPRESSION: The gastric tube terminates within the mid thoracic trachea. There is opacification of the right middle and right lower lobes as evidenced by obscuration of the right heart border in the right hemidiaphragm. This is likely compatible with complete right lower lobeand right middle lobe atelectatic collapse secondary to mucous pluggingand/or aspiration of contents. There is tracheal deviation to the right likely secondary to atelectatic collapse of the right middle and right lower lobes. A component of right pleural effusion cannot be entirelyexcluded. The cardiomediastinal silhouette is obscured. The left hemithorax isclear. The visible bony thorax is intact. Report dictated by Shane Dougherty DO (residential mortgage manager). > Dictated by Shane Dougherty MD (Shot Dropper) 09/08/2022 10:27 AM Hermes Thomason MD have personally reviewed and interpreted this examination/study. > Interpreting Provider: Hermes Martinez MD on 09/08/2022 10:58 AM Juan Diego Garcia MD DIAGNOSTIC IMAGING O RDERABLES * CT ANGIO CHEST PULM EMBOLISM (09/07/2022 11:48 PM CDT) Anatomical Region Laterality Modality Chest Computed Tomogra phy 09/08/2022 7:47 AM CDT Impressions 09/08/2022 10:21 AM CDT IMPRESSION: 1. No CT evidence of pulmonary embolism. 2. Debris and secretions within the in right main bronchus with worsening collapse of the right lower and middle lobe. There is increasing left to right mediastinal shift. The right upper lobe appears partially collapsed. There is dense consolidation within all 3 lobes of the right lung which likely a combination of atelectasis and aspiration. There is a right-sided pleural effusion. > Dictated by Quan Nguyễn MD. I, Eron Payton have personally reviewed and interpreted this examination/study. > Interpreting Provider: Eron Payton on 09/08/2022 10:21 AM Narrative 09/08/2022 10:21 AM CDT PROCEDURE: ??CT ANGIO CHEST PULM EMBOLISM DATE/TIME OF EXAM: ??09/07/2022 11:49 PM CLINICAL INFORMATION: None relevant/not provided if blank. Indication: J96.21: Acute on chronic respiratory failure with hypoxia (CMS/HCC) Additional History: COMPARISON: CT chest 08/16/2022 TECHNIQUE: CT angiography of the chest was performed without IV contrast followed by IV contrast, including 3D post processing CTA image reconstruction. ?? CT angiography of the chest was performed with IV contrast. MIP (maximum intensity projection) images or 3D post processing was performed. CT dose reduction technique was used including Automated Exposure Control CONTRAST: ?? IOPAMIDOL 76 % IV SOLN:75 mL FINDINGS: Lines/tubes, *Tracheostomy tube with tip in the mid thoracic trachea. *Partially visualized percutaneous gastrostomy tube. Diagnostic quality: Adequate Vasculature: There is no evidence for pulmonary embolism. Atherosclerosis of the thoracic aorta. Lungs/airway: There is debris within the right main bronchus with worsening atelectasis of the right lower and middle lobe. There is increasing left to right mediastinal shift. The right upper lobe appears partially collapsed. There is dense consolidation in the right lower, middle, and the posterior-inferior portions of the left upper lobe and likely evidence of comminution of atelectasis and aspiration. There is a right-sided pleural effusion. Heart/mediastinum: There is [id number] mediastinal shift. The heart is not enlarged. There is no pericardial effusion. There are no abnormally enlarged hilar or mediastinal lymph nodes. Upper abdomen: No acute process identified in the visualized upper abdomen. Bone/soft tissues: Degenerative changes in the thoracic spine. There is a chronic deformity at the right distal clavicle and mid sternum. Procedure Note Eron Payton MD - 09/08/2022 PROCEDURE: CT ANGIO CHEST PULM EMBOLISM DATE/TIME OF EXAM: 09/07/2022 11:49 PM CLINICAL INFORMATION: None relevant/not provided if blank. Indication: J96.21: Acute on chronic respiratory failure with hypoxia (CMS/HCC) Additional History: COMPARISON: CT chest 08/16/2022 TECHNIQUE: CT angiography of the chest was performed without IV contrast followedby IV contrast, including 3D post processing CTA image reconstruction. CT angiography of the chest was performed with IV contrast. MIP (maximum intensity projection) images or 3D post processing was performed. CTdose reduction technique was used including Automated Exposure Control CONTRAST: IOPAMIDOL 76 % IV SOLN:75 mL FINDINGS: Lines/tubes, *Tracheostomy tube with tip in the mid thoracic trachea. *Partially visualized percutaneous gastrostomy tube. Diagnostic quality: Adequate Vasculature: There is no evidence for pulmonary embolism.Atherosclerosis of the thoracic aorta. Lungs/airway: There is debris within the right main bronchus withworsening atelectasis of the right lower and middle lobe. There is increasing leftto right mediastinal shift. The right upper lobe appears partiallycollapsed. There is dense consolidation in the right lower, middle, and the posterior-inferior portions of the left upper lobe and likely evidenceof comminution of atelectasis and aspiration. There is a right-sidedpleural effusion. Heart/mediastinum: There is [id number] mediastinal shift. The heartis not enlarged. There is no pericardial effusion. There are no abnormally enlarged hilar or mediastinal lymph nodes. Upper abdomen: No acute process identified in the visualized upperabdomen. Bone/soft tissues: Degenerative changes in the thoracic spine. There jacquelyn chronic deformity at the right distal clavicle and mid sternum. IMPRESSION: 1. No CT evidence of pulmonary embolism. 2. Debris and secretions within the in right main bronchus withworsening collapse of the right lower and middle lobe. There is increasing left to right mediastinal shift. The right upper lobe appears partiallycollapsed. There is dense consolidation within all 3 lobes of the right lung which likely a combination of atelectasis and aspiration. There is aright-sided pleural effusion. > Dictated by Quan Nguyễn MD. I, Eron Payton have personally reviewed and interpreted this examination/study. > Interpreting Provider: Eron Payton on 09/08/2022 10:21 AM Juan Diego Garcia MD CT ORDERABLES * EKG 12-LEAD (09/07/2022 10:58 AM CDT) Ventricular Rate 120 BPM [facility] MUSE Atrial Rate 120 BPM [facility] MUSE P-R Interval 144 ms [facility] MUSE QRS Duration ms 76 ms [facility]USE Q-T Interval ms 304 ms [facility] MUSE QTC Calculation (Bezet) 429 ms [facility] MUSE Calculated P Boswell 65 degrees SL MUSE Calculated R Boswell 17 degrees SL MUSE Calculated T Boswell 88 degrees SL MUSE Interpretation EKG SINUS TACHYCARDIA NONSPECIFIC T WAVE ABNORMALITY ABNORMAL ECG WHEN COMPARED WITH ECG OF 06-SEP-2022 15:50, CRITERIA FOR SEPTAL INFARCT ARE NO LONGER PRESENT Confirmed by LINNEA BERNARD MD ([id number]) on 09/08/2022 9:30:53 AM [facility] MUSE 09/07/2022 10:5 8 AM CDT 09/08/2022 9:30 AM CDT Juan Diego Garcia MD ECG ORDERABLES [facility] M[facility] * (ABNORMAL) BLOOD GASES ART + COOX PANEL (09/07/2022 9:41 AM CDT) pH Arterial 7.44 7.35 - 7.45 pH 09/07/2022 9:50 AM CDT [facility] pO2 Arterial 100 80 - 100 mmHg 09/07/2022 9:50 AM CDT [facility] pCO2 Arterial 46(H) 35 - 45 mmHg 9:50 AM [facility] HCO3 Arterial 31.2(H) 20.0 - 30.0 mmol/L 09/07/2022 9:50 AM [facility] BE Arterial 6.2(H) -2.0 - 2.0 mmol/L 09/07/2022 9:50 AM [facility] Oxyhemoglobin Arterial 96.4 % 09/07/2022 9:50 AM [facility] Dexoyhemoglobin (HHB) % 1.3 % 09/07/2022 9:50 AM [facility] Methemoglobin 0.9 0.0 - 2.0 % 09/07/2022 9:50 AM [facility] Carboxyhemoglobin 1.4 0.0 - 2.0 % 2022 9:50 AM [facility] O2 Content Arterial 14.1 Interpret within clinical context ml/dL 09/07/2022 9:50 AM [facility] Hemoglobin by COOX 10.3(L) 12.0 - 17.6 g/dL 09/07/2022 9:50 AM [facility] O2 Saturation Arterial 99 90 - 100 % 09/07/2022 9:50 AM [facility] FI O2 Arterial 40.0 % 09/07/2022 9:50 AM [facility] Blood, arterial ARTERIAL BLOOD SPECIMEN / Unknown Arterial Puncture / Unknown 09/07/2022 9:41 AM T 09/07/2022 9:47 AM [facility] - 09/07/2022 9:50 AM [facility] Carboxyhemoglobin Normal Concentration: Non-smokers: 0-2%; Smokers: 0-9%; Toxic: >20% Juan Diego Garcia MD LAB - BLOOD GASES OR DERABLES [address] [address], [facility] [phone] * PHOSPHORUS BLOOD (09/07/2022 3:04 AM [facility]) Phosphorus 3.5 2.8 - 5.1 mg/dL 09/07/2022 3:36 AM CDT [facility] Blood BLOOD SPECIMEN / Unknown Venipuncture / Unknown 09/07/2022 3:04 AM CDT 09/07/2022 3:11 AM CDT Artemio Abarca MD LAB - CHEMISTRY MARSHAL MEDEROS [address] [address], [facility] [phone] * MAGNESIUM BLOOD (09/07/2022 3:04 AM CDT) Magnesium 1.8 1.6 - 2.6 mg/dL 09/07/2022 3:36 AM T [facility] Blood BLOOD SPECIMEN / Unknown Venipuncture / Unknown 09/07/2022 3:04 AM CDT 09/07/2022 3:11 AM CDT Artemio Abarca MD LAB - CHEMISTRY ORDByron MEDEROS [address] [address], [facility] [phone] * (ABNORMAL) BASIC METABOLIC PANEL (CALCIUM TOTAL) (09/07/2022 3:04 AM CDT) BUN 13 7 - 26 mg/dL 09/07/2022 3:36 AM T [facility] Creatinine 0.45(L) 0.71 - 1.16 mg/dL 09/07/2022 3:36 AM T [facility] Sodium 139 136 - 145 mmol/L 09/07/2022 3:36 AM T [facility] Potassium 4.5 3.5 - 4.5 mmol/L 09/07/2022 3:36 AM [facility] Chloride 103 98 - 107 mmol/L 09/07/2022 3:36 AM [facility] CO2 29 22 - 29 mmol/L 09/07/2022 3:36 AM T [facility] Glucose 116(H) 70 - 115 mg/dL 09/07/2022 3:36 AM [facility] Calcium 9.5 8.4 - 10.2 mg/dL 09/07/2022 3:36 AM [facility] Anion Gap 12 8 - 18 09/07/2022 3:36 AM [facility] BUN/Creatinine Ratio 29(H) 7 - 23 09/07/2022 3:36 AM [facility] Osmolality Calculated 289 270 - 300 mOsm/kg 09/07/2022 3:36 AM [facility] eGFR by CKD-EPI >90 >=90 mL/min/1.7 3 m2 09/07/2022 3:36 AM [facility] Blood BLOOD SPECIMEN / Unknown Venipuncture / Unknown 09/07/2022 3:04 AM CDT 09/07/2022 3:11 AM CDT Artemio Abarca MD LAB - CHEMISTRY MARSHAL MEDEROS [facility] Organization Address [facility] Co de Phone Number [address] [address] [phone] * (ABNORMAL) CBC W AUTO DIFFERENTIAL (09/07/2022 3:04 AM T) WBC 6.5 3.5 - 10.5 10? 3 /uL 09/07/2022 3:21 AM [facility] RBC 3.07(L) 4.30 - 5.70 10? 6 /uL 09/07/2022 3:21 AM [facility] Hemoglobin 9.9(L) 12.0 - 17.6 g/dL 09/07/2022 3:21 AM [facility] Hematocrit 31.1(L) 35.2 - 51.7 % 09/07/2022 3:21 AM [facility] MCV 101.3(H) 80.7 - 98.3 fL 09/07/2022 3:21 AM [facility] MCH 32.2 26.7 - 34.0 pg 09/07/2022 3:21 AM [facility] MCHC 31.8 30.8 - 35.9 g/dL 09/07/2022 3:21 AM [facility] RDW-SD 56.6(H) 36.0 - 50.0 fL 09/07/2022 3:21 AM [facility] RDW-CV 15.4(H) 11.2 - 14.8 % 09/07/2022 3:21 AM [facility] Platelet Count 255 150 - 400 10? 3 /uL 09/07/2022 3:21 AM [facility] MPV 10.9 9.4 - 12.9 fL 09/07/2022 3:21 AM [facility] nRBC Absolute 0.00 0 10? 3 /uL 09/07/2022 3:21 AM [facility] nRBC Auto 0.0 0 /100 WBC 09/07/2022 3:21 AM [facility] Neutrophils % 44.5 35.0 - 70.0 % 09/07/2022 3:21 AM [facility] Lymphocytes % 36.4 20.0 - 43.0 % 09/07/2022 3:21 AM [facility] Monocytes % 10.9 5.0 - 13.0 % 09/07/2022 3:21 AM [facility] Eosinophils % 6.9(H) 0.0 - 6.0 % 09/07/2022 3:21 AM [facility] Basophil % 0.5 0.0 - 2.0 % 09/07/2022 3:21 AM [facility] Neutrophils Absolute 2.91 1.60 - 7.00 10? 3 /uL 09/07/2022 3:21 AM [facility] Lymphocyte Absolute 2.38 1.10 - 3.90 10? 3 /uL 09/07/2022 3:21 AM [facility] Monocytes Absolute 0.71 0.26 - 1.07 10? 3 /uL 09/07/2022 3:21 AM [facility] Eosinophils Absolute 0.45 0.00 - 0.47 10? 3 /uL 09/07/2022 3:21 AM [facility] Basophils Absolute 0.03 0.00 - 0.08 10? 3 /uL 09/07/2022 3:21 AM [facility] Immature Granulocytes % 0.8 0.0 - 1.0 % 09/07/2022 3:21 AM CDT [facility] Immature Granulocytes Absolute 0.05 09/07/2022 3:21 AM CDT [facility] Blood BLOOD SPECIMEN / Unknown Venipuncture / Unknown 09/07/2022 3:04 AM CDT 09/07/2022 3:11 AM CDT Artemio Abarca MD LAB - HEMATOLOGY ORD ERABLES [facility] [address] [place] [address], [facility] [phone] * EKG 12-LEAD (09/06/2022 3:50 PM CDT) Ventricular Rate 104 BPM [facility] MUSE Atrial Rate 104 BPM H MUSE P-R Interval 144 ms [facility] MUSE QRS Duration ms 74 ms [facility] MUSE Q-T Interval ms 314 ms [facility] MUSE QTC Calculation (Bezet) 412 ms SL MUSE Calculated P Boswell 80 degrees [facility] MUSE Calculated R Boswell 6 degrees [facility] MUSE Calculated T Boswell 90 degrees [facility] MUSE Interpretation EKG SINUS TACHYCARDIA POSSIBLE SEPTAL INFARCT , AGE UNDETERMINED ABNORMAL ECG WHEN COMPARED WITH ECG OF 28-AUG-2022 12:15, PREMATURE VENTRICULAR COMPLEXES ARE NO LONGER PRESENT Confirmed by LINNEA BERNARD MD ([id number]) on 09/07/2022 9:22:53 AM [facility] MUSE 09/06/2022 3:50 PM CDT 09/07/2022 9:22 AM CDT Juan Diego Garcia MD ECG ORDERABLES Performing Organization Address [facility]/ZIP Co de Phone Number [facility] MUSE * XR CHEST 1VW PORTABLE (09/06/2022 7:48 AM CDT) Anatomical Region Laterality Modality Chest Radiographic Cynthia ging 09/06/2022 9:25 AM CDT Narrative 09/06/2022 3:49 PM CDT PROCEDURE: ??XR CHEST 1VW PORTABLE, DATE/TIME OF EXAM: ??09/06/2022 7:48 AM, LOCATION ??[facility] INDICATION: J96.21: Acute on chronic respiratory failure with hypoxia (CMS/HCC) ADDITIONAL CLINICAL INFORMATION: Ordering Provider Reason For Exam: ??AHRF, evaluate RLL COMPARISON: Chest x-ray dated 09/04/2022 FINDINGS/IMPRESSION: Tracheostomy tube terminates approximately 6.5 cm above the brionna. Improved right pleural effusion and improved right middle and lower lobe atelectasis. Left lung is clear. There is no pneumothorax. The cardiomediastinal silhouette is grossly normal for technique. Report dictated by Usman Arce MD, (residential mortgage manager). Rachel Thomason MD have personally reviewed and interpreted this examination/study. > Interpreting Provider: Rachel Phillips MD on 09/06/2022 3:49 PM Procedure Note Rachel Phillips MD - 09/06/2022 PROCEDURE: XR CHEST 1VW PORTABLE, DATE/TIME OF EXAM: 09/06/2022 7:48AM, LOCATION [facility] INDICATION: J96.21: Acute on chronic respiratory failure with hypoxia ([facility]/HCC) ADDITIONAL CLINICAL INFORMATION: Ordering Provider Reason For Exam: AHRF, evaluate RLL COMPARISON: Chest x-ray dated 09/04/2022 FINDINGS/IMPRESSION: Tracheostomy tube terminates approximately 6.5 cm above the brionna. Improved right pleural effusion and improved right middle and lower lobe atelectasis. Left lung is clear. There is no pneumothorax. The cardiomediastinal silhouette is grossly normal for technique. Report dictated by Usman Arce MD, (residential mortgage manager). Rachel Thomason MD have personally reviewed and interpreted this examination/study. > Interpreting Provider: Rachel Phillips MD on 09/06/2022 3:49 PM Blair Bacon MD DIAGNOSTIC IMAGING O RDERABLES * PHOSPHORUS BLOOD (09/06/2022 5:24 AM CDT) Phosphorus 3.8 2.8 - 5.1 mg/dL 09/06/2022 6:39 AM CDT [facility] Blood BLOOD SPECIMEN / Unknown Venipuncture / Unknown 09/06/2022 5:24 AM CDT 09/06/2022 5:56 AM CDT Artemio Abarca MD LAB - CHEMISTRY MARSHAL MEDEROS [address] [address], [facility] [phone] * MAGNESIUM BLOOD (09/06/2022 5:24 AM CDT) Pathologist [facility] Magnesium 1.7 1.6 - 2.6 mg/dL 09/06/2022 6:39 AM T [facility] Blood BLOOD SPECIMEN / Unknown Venipuncture / Unknown 09/06/2022 5:24 AM CDT 09/06/2022 5:56 AM CDT Artemio Abarca MD LAB - CHEMISTRY MARSHAL MEDEROS Performing Organization Address City/[facility]/ZIP Co de Phone Number [address] [address], [facility] [phone] * (ABNORMAL) BASIC METABOLIC PANEL (CALCIUM TOTAL) (09/06/2022 5:24 AM CDT) Pathologist [facility] BUN 13 7 - 26 mg/dL 09/06/2022 6:56 AM [facility] Creatinine 0.43(L) 0.71 - 1.16 mg/dL 09/06/2022 6:56 AM [facility] Sodium 138 136 - 145 mmol/L 09/06/2022 6:56 AM [facility] Potassium 4.5 3.5 - 4.5 mmol/L 09/06/2022 6:56 AM [facility] Chloride 103 98 - 107 mmol/L 09/06/2022 6:56 AM [facility] CO2 29 22 - 29 mmol/L 09/06/2022 6:56 AM [facility] Glucose 86 70 - 115 mg/dL 09/06/2022 6:56 AM [facility] Calcium 9.5 8.4 - 10.2 mg/dL 09/06/2022 6:56 AM [facility] Anion Gap 11 8 - 18 09/06/2022 6:56 AM [facility] BUN/Creatinine Ratio 30(H) 7 - 23 09/06/2022 6:56 AM [facility] Osmolality Calculated 285 270 - 300 mOsm/kg 09/06/2022 6:56 AM [facility] eGFR by CKD-EPI >90 >=90 mL/min/1.7 3 m2 09/06/2022 6:56 AM [facility] Blood BLOOD SPECIMEN / Unknown Venipuncture / Unknown 09/06/2022 5:24 AM CDT 09/06/2022 5:56 AM CDT Artemio Abarca MD LAB - CHEMISTRY LUCIE GATITO [facility] Organization Address City/State/ZIP Co de Phone Number [facility] [address] [place] [address], [facility] [phone] * (ABNORMAL) CBC W AUTO DIFFERENTIAL (09/06/2022 5:24 AM CDT) WBC 6.5 3.5 - 10.5 10? 3 /uL 09/06/2022 5:52 AM [facility] RBC 2.91(L) 4.30 - 5.70 10? 6 /uL 09/06/2022 5:52 AM [facility] Hemoglobin 9.4(L) 12.0 - 17.6 g/dL 09/06/2022 5:52 AM [facility] Hematocrit 29.4(L) 35.2 - 51.7 % 09/06/2022 5:52 AM [facility] MCV 101.0(H) 80.7 - 98.3 fL 09/06/2022 5:52 AM [facility] MCH 32.3 26.7 - 34.0 pg 09/06/2022 5:52 AM [facility] MCHC 32.0 30.8 - 35.9 g/dL 09/06/2022 5:52 AM [facility] RDW-SD 57.1(H) 36.0 - 50.0 fL 09/06/2022 5:52 AM [facility] RDW-CV 15.5(H) 11.2 - 14.8 % 09/06/2022 5:52 AM [facility] Platelet Count 252 150 - 400 10? 3 /uL 09/06/2022 5:52 AM [facility] MPV 11.2 9.4 - 12.9 fL 09/06/2022 5:52 AM [facility] nRBC Absolute 0.00 0 10? 3 /uL 09/06/2022 5:52 AM [facility] nRBC Auto 0.0 0 /100 WBC 09/06/2022 5:52 AM [facility] Neutrophils % 45.0 35.0 - 70.0 % 09/06/2022 5:52 AM [facility] Lymphocytes % 35.9 20.0 - 43.0 % 09/06/2022 5:52 AM [facility] Monocytes % 12.2 5.0 - 13.0 % 09/06/2022 5:52 AM [facility] Eosinophils % 6.1(H) 0.0 - 6.0 % 09/06/2022 5:52 AM [facility] Basophil % 0.3 0.0 - 2.0 % 09/06/2022 5:52 AM [facility] Neutrophils Absolute 2.94 1.60 - 7.00 10? 3 /uL 09/06/2022 5:52 AM [facility] Lymphocyte Absolute 2.35 1.10 - 3.90 10? 3 /uL 09/06/2022 5:52 AM [facility] Monocytes Absolute 0.80 0.26 - 1.07 10? 3 /uL 09/06/2022 5:52 AM [facility] Eosinophils Absolute 0.40 0.00 - 0.47 10? 3 /uL 09/06/2022 5:52 AM [facility] Basophils Absolute 0.02 0.00 - 0.08 10? 3 /uL 09/06/2022 5:52 AM [facility] Immature Granulocytes % 0.5 0.0 - 1.0 % 09/06/2022 5:52 AM [facility] Immature Granulocytes Absolute 0.03 09/06/2022 5:52 AM CDT [facility] Blood BLOOD SPECIMEN / Unknown Venipuncture / Unknown 09/06/2022 5:24 AM CDT 09/06/2022 5:41 AM CDT Artemio Abarca MD LAB - HEMATOLOGY ORD BRENDA Performing Organization Address City/[facility]/ZIP Co de Phone Number [address] [address], [place] [phone] * (ABNORMAL) PHOSPHORUS BLOOD (09/05/2022 2:19 AM CDT) Phosphorus 2.6(L) 2.8 - 5.1 mg/dL 09/05/2022 3:00 AM CDT [facility] Blood BLOOD SPECIMEN / Unknown Venipuncture / Unknown 09/05/2022 2:19 AM CDT 09/05/2022 2:27 AM CDT Artemio Abarca MD LAB - CHEMISTRY MARSHAL MEDEROS Performing Organization Address [facility]/ZIP Co de Phone Number [address] [address], [place] [phone] * MAGNESIUM BLOOD (09/05/2022 2:19 AM CDT) Magnesium 1.7 1.6 - 2.6 mg/dL 09/05/2022 3:00 AM CDT [facility] Blood BLOOD SPECIMEN / Unknown Venipuncture / Unknown 09/05/2022 2:19 AM CDT 09/05/2022 2:27 AM CDT Artemio Abarca MD LAB - CHEMISTRY MARSHAL MEDEROS Performing Organization Address City/[facility]/ZIP Co de Phone Number [address] [address], [place] [phone] * (ABNORMAL) BASIC METABOLIC PANEL (CALCIUM TOTAL) (09/05/2022 2:19 AM CDT) BUN 11 7 - 26 mg/dL 09/05/2022 3:00 AM [facility] Creatinine 0.44(L) 0.71 - 1.16 mg/dL 09/05/2022 3:00 AM [facility] Sodium 139 136 - 145 mmol/L 09/05/2022 3:00 AM [facility] Potassium 4.4 3.5 - 4.5 mmol/L 09/05/2022 3:00 AM [facility] Chloride 106 98 - 107 mmol/L 09/05/2022 3:00 AM [facility] CO2 29 22 - 29 mmol/L 09/05/2022 3:00 AM [facility] Glucose 112 70 - 115 mg/dL 09/05/2022 3:00 AM [facility] Calcium 9.2 8.4 - 10.2 mg/dL 09/05/2022 3:00 AM [facility] Anion Gap 8 8 - 18 09/05/2022 3:00 AM [facility] BUN/Creatinine Ratio 25(H) 7 - 23 09/05/2022 3:00 AM [facility] Osmolality Calculated 288 270 - 300 mOsm/kg 09/05/2022 3:00 AM [facility] eGFR by CKD-EPI >90 >=90 mL/min/1.7 3 m2 09/05/2022 3:00 AM [facility] Blood BLOOD SPECIMEN / Unknown Venipuncture / Unknown 09/05/2022 2:19 AM CDT 09/05/2022 2:27 AM T Artemio Abarca MD LAB - CHEMISTRY MARSHAL MEDEROS [facility] Organization Address City/State/ZIP Co de Phone Number [facility] [address] [place] [phone], [facility] [phone] * (ABNORMAL) CBC W AUTO DIFFERENTIAL (09/05/2022 2:19 AM CDT) [facility] WBC 6.3 3.5 - 10.5 10? 3 /uL 09/05/2022 2:35 AM [facility] RBC 2.66(L) 4.30 - 5.70 10? 6 /uL 09/05/2022 2:35 AM [facility] Hemoglobin 8.7(L) 12.0 - 17.6 g/dL 09/05/2022 2:35 AM [facility] Hematocrit 26.8(L) 35.2 - 51.7 % 09/05/2022 2:35 AM [facility] MCV 100.8(H) 80.7 - 98.3 fL 09/05/2022 2:35 AM [facility] MCH 32.7 26.7 - 34.0 pg 09/05/2022 2:35 AM [facility] MCHC 32.5 30.8 - 35.9 g/dL 09/05/2022 2:35 AM [facility] RDW-SD 56.0(H) 36.0 - 50.0 fL 09/05/2022 2:35 AM [facility] RDW-CV 15.4(H) 11.2 - 14.8 % 09/05/2022 2:35 AM [facility] Platelet Count 214 150 - 400 10? 3 /uL 09/05/2022 2:35 AM [facility] MPV 11.3 9.4 - 12.9 fL 09/05/2022 2:35 AM [facility] nRBC Absolute 0.00 0 10? 3 /uL 09/05/2022 2:35 AM [facility] nRBC Auto 0.0 0 /100 WBC 09/05/2022 2:35 AM [facility] Neutrophils % 53.0 35.0 - 70.0 % 09/05/2022 2:35 AM [facility] Lymphocytes % 30.2 20.0 - 43.0 % 09/05/2022 2:35 AM [facility] Monocytes % 9.9 5.0 - 13.0 % 09/05/2022 2:35 AM [facility] Eosinophils % 5.9 0.0 - 6.0 % 09/05/2022 2:35 AM [facility] Basophil % 0.5 0.0 - 2.0 % 09/05/2022 2:35 AM CDT [facility] Neutrophils Absolute 3.34 1.60 - 7.00 10? 3 /uL 09/05/2022 2:35 AM CDT [facility] Lymphocyte Absolute 1.90 1.10 - 3.90 10? 3 /uL 09/05/2022 2:35 AM CDT [facility] Monocytes Absolute 0.62 0.26 - 1.07 10? 3 /uL 09/05/2022 2:35 AM CDT [facility] Eosinophils Absolute 0.37 0.00 - 0.47 10? 3 /uL 09/05/2022 2:35 AM CDT [facility] Basophils Absolute 0.03 0.00 - 0.08 10? 3 /uL 09/05/2022 2:35 AM CDT [facility] Immature Granulocytes % 0.5 0.0 - 1.0 % 09/05/2022 2:35 AM CDT [facility] Immature Granulocytes Absolute 0.03 09/05/2022 2:35 AM CDT [facility] Blood BLOOD SPECIMEN / Unknown Venipuncture / Unknown 09/05/2022 2:19 AM CDT 09/05/2022 2:27 AM CDT Artemio Abarca MD LAB - HEMATOLOGY ORD ERABLES [facility] [address] [place] [address], [facility] [phone] * XR CHEST 1VW PORTABLE (09/04/2022 12:18 PM CDT) Anatomical Region Laterality Modality Chest Radiographic Cynthia ging 09/04/2022 1:46 PM CDT Narrative 09/04/2022 8:39 PM CDT PROCEDURE: ??XR CHEST 1VW PORTABLE, DATE/TIME OF EXAM: ??09/04/2022 12:18 PM, LOCATION ??[facility] INDICATION: R06.02: SOB (shortness of breath) ADDITIONAL CLINICAL INFORMATION: Ordering Provider Reason For Exam: ??AHRF COMPARISON: Chest radiograph 08/28/2022. TECHNIQUE: Frontal radiograph of the chest. FINDINGS/IMPRESSION: *Tracheostomy tube terminates within the superior thoracic trachea. The patient is rotated. A small/medium right-sided pleural effusion is redemonstrated with adjacent compressive atelectasis, slightly increased in size compared to prior. No evidence of pneumothorax or left-sided focal consolidation. The cardiomediastinal silhouette is slightly increased prior. The visible bony thorax is intact. Report dictated by Ashu Welch M.D. (residential mortgage manager) KOBE Thomason MD have personally reviewed and interpreted this examination/study. > Interpreting Provider: KOBE RUBIO MD on 09/04/2022 8:39 PM Procedure Note Kobe Rubio MD - 09/04/2022 PROCEDURE: XR CHEST 1VW PORTABLE, DATE/TIME OF EXAM: 09/04/2022 12:18PM, LOCATION [facility] INDICATION: R06.02: SOB (shortness of breath) ADDITIONAL CLINICAL INFORMATION: Ordering Provider Reason For Exam: AHRF COMPARISON: Chest radiograph 08/28/2022. TECHNIQUE: Frontal radiograph of the chest. FINDINGS/IMPRESSION: *Tracheostomy tube terminates within the superior thoracic trachea. The patient is rotated. A small/medium right-sided pleural effusion is redemonstrated with adjacent compressive atelectasis, slightly increasedin size compared to prior. No evidence of pneumothorax or left-sided focal consolidation. The cardiomediastinal silhouette is slightly increased prior. Thevisible bony thorax is intact. Report dictated by Ashu Welch M.D. (residential mortgage manager) KOBE Thomason MD have personally reviewed and interpreted this examination/study. > Interpreting Provider: KOBE RUBIO MD on 09/04/2022 8:39 PM Artemio Abarca MD DIAGNOSTIC IMAGING O RDERABLES * PHOSPHORUS BLOOD (09/04/2022 3:40 AM CDT) Phosphorus 2.8 2.8 - 5.1 mg/dL 09/04/2022 4:40 AM CDT [facility] Blood BLOOD SPECIMEN / Unknown Venipuncture / Unknown 09/04/2022 3:40 AM CDT 09/04/2022 4:10 AM CDT Artemio Abarca MD LAB - CHEMISTRY MARSHAL MEDEROS [address] [address], [place] [phone] * MAGNESIUM BLOOD (09/04/2022 3:40 AM CDT) Magnesium 1.7 1.6 - 2.6 mg/dL 09/04/2022 4:40 AM T [facility] Blood BLOOD SPECIMEN / Unknown Venipuncture / Unknown 09/04/2022 3:40 AM CDT 09/04/2022 4:10 AM CDT Artemio Abarca MD LAB - CHEMISTRY MARSHAL MEDEROS [address] [address], [place] [phone] * (ABNORMAL) BASIC METABOLIC PANEL (CALCIUM TOTAL) (09/04/2022 3:40 AM CDT) BUN 11 7 - 26 mg/dL 09/04/2022 4:40 AM [facility] Creatinine 0.32(L) 0.71 - 1.16 mg/dL 09/04/2022 4:40 AM [facility] Sodium 142 136 - 145 mmol/L 09/04/2022 4:40 AM [facility] Potassium 4.1 3.5 - 4.5 mmol/L 09/04/2022 4:40 AM [facility] Chloride 108(H) 98 - 107 mmol/L 09/04/2022 4:40 AM [facility] CO2 29 22 - 29 mmol/L 09/04/2022 4:40 AM [facility] Glucose 123(H) 70 - 115 mg/dL 09/04/2022 4:40 AM [facility] Calcium 9.5 8.4 - 10.2 mg/dL 09/04/2022 4:40 AM [facility] Anion Gap 9 8 - 18 09/04/2022 4:40 AM [facility] BUN/Creatinine Ratio 34(H) 7 - 23 09/04/2022 4:40 AM [facility] Osmolality Calculated 295 270 - 300 mOsm/kg 09/04/2022 4:40 AM [facility] eGFR by CKD-EPI >90 >=90 mL/min/1.7 3 m2 09/04/2022 4:40 AM [facility] Blood BLOOD SPECIMEN / Unknown Venipuncture / Unknown 09/04/2022 3:40 AM CDT 09/04/2022 4:10 AM CDT Artemio Abarca MD LAB - CHEMISTRY LUCIE GATITO [facility] Organization Address City/State/ZIP Co de Phone Number [facility] [address] [place] [phone], [facility] [phone] * (ABNORMAL) CBC W AUTO DIFFERENTIAL (09/04/2022 3:40 AM T) WBC 6.4 3.5 - 10.5 10? 3 /uL 09/04/2022 4:16 AM [facility] RBC 2.75(L) 4.30 - 5.70 10? 6 /uL 09/04/2022 4:16 AM [facility] Hemoglobin 8.7(L) 12.0 - 17.6 g/dL 09/04/2022 4:16 AM [facility] Hematocrit 27.7(L) 35.2 - 51.7 % 09/04/2022 4:16 AM [facility] MCV 100.7(H) 80.7 - 98.3 fL 09/04/2022 4:16 AM [facility] MCH 31.6 26.7 - 34.0 pg 09/04/2022 4:16 AM [facility] MCHC 31.4 30.8 - 35.9 g/dL 09/04/2022 4:16 AM [facility] RDW-SD 55.9(H) 36.0 - 50.0 fL 09/04/2022 4:16 AM [facility] RDW-CV 15.1(H) 11.2 - 14.8 % 09/04/2022 4:16 AM [facility] Platelet Count 215 150 - 400 10? 3 /uL 09/04/2022 4:16 AM [facility] MPV 11.9 9.4 - 12.9 fL 09/04/2022 4:16 AM [facility] nRBC Absolute 0.00 0 10? 3 /uL 09/04/2022 4:16 AM [facility] nRBC Auto 0.0 0 /100 WBC 09/04/2022 4:16 AM [facility] Neutrophils % 58.5 35.0 - 70.0 % 09/04/2022 4:16 AM [facility] Lymphocytes % 24.3 20.0 - 43.0 % 09/04/2022 4:16 AM [facility] Monocytes % 10.7 5.0 - 13.0 % 09/04/2022 4:16 AM [facility] Eosinophils % 5.9 0.0 - 6.0 % 09/04/2022 4:16 AM [facility] Basophil % 0.3 0.0 - 2.0 % 09/04/2022 4:16 AM [facility] Neutrophils Absolute 3.76 1.60 - 7.00 10? 3 /uL 09/04/2022 4:16 AM [facility] Lymphocyte Absolute 1.56 1.10 - 3.90 10? 3 /uL 09/04/2022 4:16 AM [facility] Monocytes Absolute 0.69 0.26 - 1.07 10? 3 /uL 09/04/2022 4:16 AM [facility] Eosinophils Absolute 0.38 0.00 - 0.47 10? 3 /uL 09/04/2022 4:16 AM [facility] Basophils Absolute 0.02 0.00 - 0.08 10? 3 /uL 09/04/2022 4:16 AM [facility] Immature Granulocytes % 0.3 0.0 - 1.0 % 09/04/2022 4:16 AM [facility] Immature Granulocytes Absolute 0.02 09/04/2022 4:16 AM [facility] Blood BLOOD SPECIMEN / Unknown Venipuncture / Unknown 09/04/2022 3:40 AM CDT 09/04/2022 4:07 AM CDT Artemio Abarca MD LAB - HEMATOLOGY ORD BRENDA Performing Organization Address City/[facility]/ZIP Co de Phone Number [address] [address], [place] [phone] * PHOSPHORUS BLOOD (09/03/2022 2:56 AM CDT) Phosphorus 3.5 2.8 - 5.1 mg/dL 09/03/2022 3:38 AM CDT [facility] Blood BLOOD SPECIMEN / Unknown Venipuncture / Unknown 09/03/2022 2:56 AM CDT 09/03/2022 3:11 AM CDT Artemio Abarca MD LAB - CHEMISTRY MARSHAL MEDEROS Performing Organization Address [facility]/ZIP Co de Phone Number [address] [address], [place] [phone] * MAGNESIUM BLOOD (09/03/2022 2:56 AM CDT) Magnesium 1.7 1.6 - 2.6 mg/dL 09/03/2022 3:38 AM CDT [facility] Blood BLOOD SPECIMEN / Unknown Venipuncture / Unknown 09/03/2022 2:56 AM CDT 09/03/2022 3:11 AM CDT Artemio Abarca MD LAB - CHEMISTRY MARSHAL MEDEROS Performing Organization Address [facility]/ZIP Co de Phone Number [address] [address], [facility] [phone] * (ABNORMAL) BASIC METABOLIC PANEL (CALCIUM TOTAL) (09/03/2022 2:56 AM CDT) BUN 10 7 - 26 mg/dL 09/03/2022 3:38 AM CDT [facility] Creatinine 0.35(L) 0.71 - 1.16 mg/dL 09/03/2022 3:38 AM [facility] Sodium 143 136 - 145 mmol/L 09/03/2022 3:38 AM [facility] Potassium 3.9 3.5 - 4.5 mmol/L 09/03/2022 3:38 AM [facility] Chloride 109(H) 98 - 107 mmol/L 09/03/2022 3:38 AM [facility] CO2 27 22 - 29 mmol/L 09/03/2022 3:38 AM [facility] Glucose 125(H) 70 - 115 mg/dL 09/03/2022 3:38 AM [facility] Calcium 8.8 8.4 - 10.2 mg/dL 09/03/2022 3:38 AM [facility] Anion Gap 11 8 - 18 09/03/2022 3:38 AM [facility] BUN/Creatinine Ratio 29(H) 7 - 23 09/03/2022 3:38 AM [facility] Osmolality Calculated 297 270 - 300 mOsm/kg 09/03/2022 3:38 AM [facility] eGFR by CKD-EPI >90 >=90 mL/min/1.7 3 m2 09/03/2022 3:38 AM [facility] Blood BLOOD SPECIMEN / Unknown Venipuncture / Unknown 09/03/2022 2:56 AM CDT 09/03/2022 3:11 AM T Artemio Abarca MD LAB - CHEMISTRY MARSHAL [facility] Organization Address City/State/[facility] Co de Phone Number [facility] [address] [place] [phone], [facility] [phone] * (ABNORMAL) CBC W AUTO DIFFERENTIAL (09/03/2022 2:56 AM CDT) WBC 5.6 3.5 - 10.5 10? 3 /uL 09/03/2022 3:21 AM [facility] RBC 2.70(L) 4.30 - 5.70 10? 6 /uL 09/03/2022 3:21 AM [facility] Hemoglobin 8.7(L) 12.0 - 17.6 g/dL 09/03/2022 3:21 AM [facility] Hematocrit 27.3(L) 35.2 - 51.7 % 09/03/2022 3:21 AM [facility] MCV 101.1(H) 80.7 - 98.3 fL 09/03/2022 3:21 AM [facility] MCH 32.2 26.7 - 34.0 pg 09/03/2022 3:21 AM [facility] MCHC 31.9 30.8 - 35.9 g/dL 09/03/2022 3:21 AM [facility] RDW-SD 57.4(H) 36.0 - 50.0 fL 09/03/2022 3:21 AM [facility] RDW-CV 15.5(H) 11.2 - 14.8 % 09/03/2022 3:21 AM [facility] Platelet Count 181 150 - 400 10? 3 /uL 09/03/2022 3:21 AM [facility] MPV 11.8 9.4 - 12.9 fL 09/03/2022 3:21 AM [facility] nRBC Absolute 0.00 0 10? 3 /uL 09/03/2022 3:21 AM [facility] nRBC Auto 0.0 0 /100 WBC 09/03/2022 3:21 AM [facility] Neutrophils % 54.7 35.0 - 70.0 % 09/03/2022 3:21 AM [facility] Lymphocytes % 26.7 20.0 - 43.0 % 09/03/2022 3:21 AM [facility] Monocytes % 10.8 5.0 - 13.0 % 09/03/2022 3:21 AM [facility] Eosinophils % 7.2(H) 0.0 - 6.0 % 09/03/2022 3:21 AM [facility] Basophil % 0.4 0.0 - 2.0 % 09/03/2022 3:21 AM [facility] Neutrophils Absolute 3.04 1.60 - 7.00 10? 3 /uL 09/03/2022 3:21 AM CDT [facility] Lymphocyte Absolute 1.48 1.10 - 3.90 10? 3 /uL 09/03/2022 3:21 AM CDT [facility] Monocytes Absolute 0.60 0.26 - 1.07 10? 3 /uL 09/03/2022 3:21 AM CDT [facility] Eosinophils Absolute 0.40 0.00 - 0.47 10? 3 /uL 09/03/2022 3:21 AM CDT [facility] Basophils Absolute 0.02 0.00 - 0.08 10? 3 /uL 09/03/2022 3:21 AM CDT [facility] Immature Granulocytes % 0.2 0.0 - 1.0 % 09/03/2022 3:21 AM T [facility] Immature Granulocytes Absolute 0.01 09/03/2022 3:21 AM CDT [facility] Blood BLOOD SPECIMEN / Unknown Venipuncture / Unknown 09/03/2022 2:56 AM CDT 09/03/2022 3:12 AM CDT Artemio Abarca MD LAB - HEMATOLOGY ORD BRENDA [address] [address], [facility] [phone] * (ABNORMAL) VANCOMYCIN LEVEL TROUGH (09/02/2022 8:48 AM CDT) Vancomycin Trough 20.7(H) 10.0 - 20.0 ug/mL 09/02/2022 9:18 AM CDT [facility] Blood BLOOD SPECIMEN / Unknown Venipuncture / Unknown 09/02/2022 8:48 AM CDT 09/02/2022 8:50 AM CDT Narrative [facility] - 09/02/2022 9:18 AM CDT See institution protocol. Artemio Abarca MD LAB - CHEMISTRY ORDByron MEEDROS [address] [address], [facility] [phone] * (ABNORMAL) PHOSPHORUS BLOOD (09/02/2022 4:00 AM CDT) Pathologist [facility] Phosphorus 2.4(L) 2.8 - 5.1 mg/dL 09/02/2022 4:38 AM CDT [facility] Blood BLOOD SPECIMEN / Unknown Venipuncture / Unknown 09/02/2022 4:00 AM CDT 09/02/2022 4:07 AM CDT Artemio Abarca MD LAB - CHEMISTRY MARSHAL MEDEROS Performing Organization Address City/[facility]/ZIP Co de Phone Number [address] [address], [facility] [phone] * MAGNESIUM BLOOD (09/02/2022 4:00 AM CDT) [facility] Magnesium 1.6 1.6 - 2.6 mg/dL 09/02/2022 4:38 AM T [facility] Blood BLOOD SPECIMEN / Unknown Venipuncture / Unknown 09/02/2022 4:00 AM CDT 09/02/2022 4:07 AM CDT Artemio Abarca MD LAB - CHEMISTRY MARSHAL MEDEROS [address] [address], [place] [phone] * (ABNORMAL) BASIC METABOLIC PANEL (CALCIUM TOTAL) (09/02/2022 4:00 AM CDT) [facility] BUN 9 7 - 26 mg/dL 09/02/2022 4:38 AM CDT [facility] Creatinine 0.32(L) 0.71 - 1.16 mg/dL 09/02/2022 4:38 AM T [facility] Sodium 142 136 - 145 mmol/L 09/02/2022 4:38 AM T [facility] Potassium 3.9 3.5 - 4.5 mmol/L 09/02/2022 4:38 AM T [facility] Chloride 110(H) 98 - 107 mmol/L 09/02/2022 4:38 AM [facility] CO2 27 22 - 29 mmol/L 09/02/2022 4:38 AM [facility] Glucose 115 70 - 115 mg/dL 09/02/2022 4:38 AM [facility] Calcium 8.8 8.4 - 10.2 mg/dL 09/02/2022 4:38 AM [facility] Anion Gap 9 8 - 18 09/02/2022 4:38 AM [facility] BUN/Creatinine Ratio 28(H) 7 - 23 09/02/2022 4:38 AM [facility] Osmolality Calculated 294 270 - 300 mOsm/kg 09/02/2022 4:38 AM [facility] eGFR by CKD-EPI >90 >=90 mL/min/1.7 3 m2 09/02/2022 4:38 AM [facility] Blood BLOOD SPECIMEN / Unknown Venipuncture / Unknown 09/02/2022 4:00 AM CDT 09/02/2022 4:07 AM T Artemio Abarca MD [facility] Organization Address City/State/ZIP Co de Phone Number [address] [phone] [phone] * (ABNORMAL) CBC W AUTO DIFFERENTIAL (09/02/2022 4:00 AM T) WBC 4.5 3.5 - 10.5 10? 3 /uL 09/02/2022 4:16 AM [facility] RBC 2.65(L) 4.30 - 5.70 10? 6 /uL 09/02/2022 4:16 AM [facility] Hemoglobin 8.5(L) 12.0 - 17.6 g/dL 09/02/2022 4:16 AM [facility] Hematocrit 26.7(L) 35.2 - 51.7 % 09/02/2022 4:16 AM [facility] MCV 100.8(H) 80.7 - 98.3 fL 09/02/2022 4:16 AM [facility] MCH 32.1 26.7 - 34.0 pg 09/02/2022 4:16 AM [facility] MCHC 31.8 30.8 - 35.9 g/dL 09/02/2022 4:16 AM [facility] RDW-SD 55.5(H) 36.0 - 50.0 fL 09/02/2022 4:16 AM [facility] RDW-CV 15.2(H) 11.2 - 14.8 % 09/02/2022 4:16 AM [facility] Platelet Count 158 150 - 400 10? 3 /uL 09/02/2022 4:16 AM [facility] MPV 11.8 9.4 - 12.9 fL 09/02/2022 4:16 AM [facility] nRBC Absolute 0.00 0 10? 3 /uL 09/02/2022 4:16 AM [facility] nRBC Auto 0.0 0 /100 WBC 09/02/2022 4:16 AM [facility] Neutrophils % 51.2 35.0 - 70.0 % 09/02/2022 4:16 AM [facility] Lymphocytes % 32.1 20.0 - 43.0 % 09/02/2022 4:16 AM [facility] Monocytes % 9.7 5.0 - 13.0 % 09/02/2022 4:16 AM [facility] Eosinophils % 6.6(H) 0.0 - 6.0 % 09/02/2022 4:16 AM [facility] Basophil % 0.2 0.0 - 2.0 % 09/02/2022 4:16 AM [facility] Neutrophils Absolute 2.31 1.60 - 7.00 10? 3 /uL 09/02/2022 4:16 AM [facility] Lymphocyte Absolute 1.45 1.10 - 3.90 10? 3 /uL 09/02/2022 4:16 AM [facility] Monocytes Absolute 0.44 0.26 - 1.07 10? 3 /uL 09/02/2022 4:16 AM [facility] Eosinophils Absolute 0.30 0.00 - 0.47 10? 3 /uL 09/02/2022 4:16 AM CDT [facility] Basophils Absolute 0.01 0.00 - 0.08 10? 3 /uL 09/02/2022 4:16 AM CDT [facility] Immature Granulocytes % 0.2 0.0 - 1.0 % 09/02/2022 4:16 AM CDT [facility] Immature Granulocytes Absolute 0.01 09/02/2022 4:16 AM CDT [facility] Blood BLOOD SPECIMEN / Unknown Venipuncture / Unknown 09/02/2022 4:00 AM CDT 09/02/2022 4:07 AM CDT Artemio Abarca MD LAB - HEMATOLOGY ORD ERABLES [address] [address], [facility] [phone] * GLUCOSE - POINT OF CARE (09/01/2022 4:39 PM CDT) Glucose WB/POC 98 70 - 115 mg/dL 09/01/2022 4:44 PM CDT [facility] Specimen Type Cap Fingerstick 2022 4:44 PM CDT [facility] Blood BLOOD SPECIMEN / Unknown 09/01/2022 4:39 PM CDT 09/01/2022 4:44 PM CDT Artemio Abarca MD LAB - POINT OF CARE ORDERABLES [address] [address], [place] [phone] * GLUCOSE - POINT OF CARE (09/01/2022 11:35 AM CDT) Glucose WB/POC 110 70 - 115 mg/dL 09/01/2022 8:39 PM CDT [facility] Specimen Type Cap Fingerstick 2022 8:39 PM CDT [facility] Blood BLOOD SPECIMEN / Unknown 09/01/2022 11:35 AM CDT 09/01/2022 8:39 PM CDT Artemio Abarca MD LAB - POINT OF CARE ORDERABLES [address] [address], [place] [phone] * (ABNORMAL) GLUCOSE - POINT OF CARE (09/01/2022 8:51 AM CDT) Glucose WB/POC 140(H) 70 - 115 mg/dL 09/01/2022 8:57 AM CDT [facility] Specimen Type Cap Fingerstick 2022 8:57 AM CDT [facility] Blood BLOOD SPECIMEN / Unknown 09/01/2022 8:51 AM CDT 09/01/2022 8:57 AM CDT Artemio Abarca MD LAB - POINT OF CARE ORDERABLES Performing Organization Address City/[facility]/ZIP Co de Phone Number [address] [address], [place] [phone] * (ABNORMAL) GLUCOSE - POINT OF CARE (09/01/2022 3:53 AM CDT) Glucose WB/POC 150(H) 70 - 115 mg/dL 09/01/2022 3:55 AM CDT [facility] Specimen Type Cap Fingerstick 2022 3:55 AM CDT [facility] Blood BLOOD SPECIMEN / Unknown 09/01/2022 3:53 AM CDT 09/01/2022 3:54 AM CDT Artemio Abarca MD LAB - POINT OF CARE ORDERABLES [address] [address], [place] [phone] * PHOSPHORUS BLOOD (09/01/2022 2:05 AM CDT) Phosphorus 2.8 2.8 - 5.1 mg/dL 09/01/2022 2:53 AM CDT [facility] Blood BLOOD SPECIMEN / Unknown Venipuncture / Unknown 09/01/2022 2:05 AM CDT 09/01/2022 2:23 AM CDT Artemio Abarca MD LAB - CHEMISTRY MARSHAL MEDEROS Performing Organization Address City/[facility]/ZIP Co de Phone Number [address] [address], [facility] [phone] * MAGNESIUM BLOOD (09/01/2022 2:05 AM CDT) Magnesium 1.6 1.6 - 2.6 mg/dL 09/01/2022 2:53 AM T [facility] Blood BLOOD SPECIMEN / Unknown Venipuncture / Unknown 09/01/2022 2:05 AM CDT 09/01/2022 2:23 AM CDT Artemio Abarca MD LAB - CHEMISTRY MARSHAL MEDEROS Performing Organization Address City/[facility]/ZIP Co de Phone Number [address] [address], [facility] [phone] * (ABNORMAL) BASIC METABOLIC PANEL (CALCIUM TOTAL) (09/01/2022 2:05 AM CDT) BUN 9 7 - 26 mg/dL 09/01/2022 2:53 AM [facility] Creatinine 0.34(L) 0.71 - 1.16 mg/dL 09/01/2022 2:53 AM [facility] Sodium 141 136 - 145 mmol/L 09/01/2022 2:53 AM T [facility] Potassium 3.7 3.5 - 4.5 mmol/L 09/01/2022 2:53 AM [facility] Chloride 109(H) 98 - 107 mmol/L 09/01/2022 2:53 AM [facility] CO2 23 22 - 29 mmol/L 09/01/2022 2:53 AM [facility] Glucose 114 70 - 115 mg/dL 09/01/2022 2:53 AM T [facility] Calcium 8.9 8.4 - 10.2 mg/dL 09/01/2022 2:53 AM [facility] Anion Gap 13 8 - 18 09/01/2022 2:53 AM [facility] BUN/Creatinine Ratio 26(H) 7 - 23 09/01/2022 2:53 AM [facility] Osmolality Calculated 292 270 - 300 mOsm/kg 09/01/2022 2:53 AM [facility] eGFR by CKD-EPI >90 >=90 mL/min/1.7 3 m2 09/01/2022 2:53 AM [facility] Blood BLOOD SPECIMEN / Unknown Venipuncture / Unknown 09/01/2022 2:05 AM CDT 09/01/2022 2:23 AM T Artemio Abarca MD LAB - [facility] Organization Address City/State/ZIP Co de Phone Number [address] [address], [facility] [phone] * (ABNORMAL) CBC W AUTO DIFFERENTIAL (09/01/2022 2:05 AM T) WBC 6.3 3.5 - 10.5 10? 3 /uL 09/01/2022 2:49 AM [facility] RBC 2.67(L) 4.30 - 5.70 10? 6 /uL 09/01/2022 2:49 AM [facility] Hemoglobin 8.8(L) 12.0 - 17.6 g/dL 09/01/2022 2:49 AM [facility] Hematocrit 26.7(L) 35.2 - 51.7 % 09/01/2022 2:49 AM [facility] MCV 100.0(H) 80.7 - 98.3 fL 09/01/2022 2:49 AM [facility] MCH 33.0 26.7 - 34.0 pg 09/01/2022 2:49 AM [facility] MCHC 33.0 30.8 - 35.9 g/dL 09/01/2022 2:49 AM [facility] RDW-SD 55.0(H) 36.0 - 50.0 fL 09/01/2022 2:49 AM [facility] RDW-CV 15.1(H) 11.2 - 14.8 % 09/01/2022 2:49 AM [facility] Platelet Count 146(L) 150 - 400 10? 3 /uL 09/01/2022 2:49 AM [facility] MPV 12.6 9.4 - 12.9 fL 09/01/2022 2:49 AM [facility] nRBC Absolute 0.00 0 10? 3 /uL 09/01/2022 2:49 AM [facility] nRBC Auto 0.0 0 /100 WBC 09/01/2022 2:49 AM [facility] Neutrophils % 58.6 35.0 - 70.0 % 09/01/2022 2:49 AM [facility] Lymphocytes % 25.1 20.0 - 43.0 % 09/01/2022 2:49 AM [facility] Monocytes % 11.2 5.0 - 13.0 % 09/01/2022 2:49 AM [facility] Eosinophils % 4.6 0.0 - 6.0 % 09/01/2022 2:49 AM [facility] Basophil % 0.2 0.0 - 2.0 % 09/01/2022 2:49 AM [facility] Neutrophils Absolute 3.67 1.60 - 7.00 10? 3 /uL 09/01/2022 2:49 AM [facility] Lymphocyte Absolute 1.57 1.10 - 3.90 10? 3 /uL 09/01/2022 2:49 AM [facility] Monocytes Absolute 0.70 0.26 - 1.07 10? 3 /uL 09/01/2022 2:49 AM [facility] Eosinophils Absolute 0.29 0.00 - 0.47 10? 3 /uL 09/01/2022 2:49 AM [facility] Basophils Absolute 0.01 0.00 - 0.08 10? 3 /uL 09/01/2022 2:49 AM [facility] Immature Granulocytes % 0.3 0.0 - 1.0 % 09/01/2022 2:49 AM CDT [facility] Immature Granulocytes Absolute 0.02 09/01/2022 2:49 AM CDT [facility] Blood BLOOD SPECIMEN / Unknown Venipuncture / Unknown 09/01/2022 2:05 AM CDT 09/01/2022 2:23 AM CDT Artemio Abarca MD LAB - HEMATOLOGY ORD ERABLES Performing Organization Address [facility]/ZIP Co de Phone Number [address] [address], [facility] [phone] * HEPATITIS C AB SCREEN RFLX NAAT QUANT (09/01/2022 2:05 AM CDT) Hepatitis C Antibody Non-react phan Non-reac tive 09/01/2022 3:09 AM CDT [facility] Comment:Hepatitis C Antibody screen indicates no [...] CDT Artemio Abarca MD LAB - CHEMISTRY ORDE GATITO Performing Organization Address City/[facility]/ZIP Co de Phone Number [address] [address], [facility] [phone] * HIV-1 HIV-2 ANTIBODY + HIV P24 AG PANEL (09/01/2022 2:05 AM CDT) HIV Antigen/Antibod y 1 & 2 Non-reacti ve Non-react phan 09/01/2022 3:09 AM CDT [facility] Comment:No Laboratory eviden ce of HIV infection. Blood BLOOD SPECIMEN / Unknown Venipuncture / Unknown 09/01/2022 2:05 AM CDT 09/01/2022 2:15 AM CDT Artemio Abarca MD LAB - CHEMISTRY ORDE RABSHILPA [address] [address], [place] [phone] * (ABNORMAL) GLUCOSE - POINT OF CARE (08/31/2022 9:57 PM CDT) Glucose WB/POC 139(H) 70 - 115 mg/dL 08/31/2022 9:57 PM CDT [facility] Specimen Type Cap Fingerstick 2022 9:57 PM CDT [facility] Blood BLOOD SPECIMEN / Unknown 08/31/2022 9:57 PM CDT 08/31/2022 9:57 PM CDT Artemio Abarca MD LAB - POINT OF CARE ORDERABLES Performing Organization Address City/[facility]/ZIP Co de Phone Number [address] [address], [place] [phone] * GLUCOSE - POINT OF CARE (08/31/2022 3:32 PM CDT) Glucose WB/POC 93 70 - 115 mg/dL 08/31/2022 3:33 PM CDT [facility] Specimen Type Cap Fingerstick 2022 3:33 PM CDT [facility] Blood BLOOD SPECIMEN / Unknown 08/31/2022 3:32 PM CDT 08/31/2022 3:33 PM CDT Artemio Abarca MD LAB - POINT OF CARE ORDERABLES [address] [address], [place] [phone] * CARDIAC EKG ORDER (08/31/2022 12:44 PM CDT) Narrative 08/31/2022 12:44 PM CDT Ordered by an unspecified provider. Scanned Document CARDIAC SERVICES ORD ERABLES * (ABNORMAL) GLUCOSE - POINT OF CARE (08/31/2022 11:49 AM CDT) Glucose WB/POC 118(H) 70 - 115 mg/dL 08/31/2022 11:50 AM CDT [facility] Specimen Type Cap Fingerstick 2022 11:50 AM CDT [facility] Blood BLOOD SPECIMEN / Unknown 08/31/2022 11:49 AM CDT 08/31/2022 11:50 AM CDT Artemio Abarca MD LAB - POINT OF CARE ORDERABLES [address] [address], [facility] [phone] * VANCOMYCIN LEVEL TROUGH (08/31/2022 9:23 AM CDT) Vancomycin Trough 11.5 10.0 - 20.0 ug/mL 08/31/2022 9:59 AM CDT [facility] Blood BLOOD SPECIMEN / Unknown Venipuncture / Unknown 08/31/2022 9:23 AM CDT 08/31/2022 9:28 AM CDT Narrative [facility] - 08/31/2022 9:59 AM CDT See institution protocol. Artemio Abarca MD LAB - CHEMISTRY ORDE RABLES [address] [address], [place] [phone] * GLUCOSE - POINT OF CARE (08/31/2022 7:49 AM CDT) Glucose WB/POC 112 70 - 115 mg/dL 08/31/2022 7:50 AM CDT [facility] Specimen Type Cap Fingerstick 2022 7:50 AM CDT [facility] Blood BLOOD SPECIMEN / Unknown 08/31/2022 7:49 AM CDT 08/31/2022 7:49 AM CDT Artemio Abarca MD LAB - POINT OF CARE ORDERABLES Performing Organization Address City/[facility]/ZIP Co de Phone Number [address] [address], [facility] [phone] * (ABNORMAL) GLUCOSE - POINT OF CARE (08/31/2022 5:49 AM CDT) Glucose WB/POC 159(H) 70 - 115 mg/dL 08/31/2022 5:50 AM CDT [facility] Specimen Type Cap Fingerstick 2022 5:50 AM CDT [facility] Blood BLOOD SPECIMEN / Unknown 08/31/2022 5:49 AM CDT 08/31/2022 5:50 AM CDT Artemio Abarca MD LAB - POINT OF CARE ORDERABLES Performing Organization Address City/[facility]/ZIP Co de Phone Number [address] [address], [facility] [phone] * (ABNORMAL) PHOSPHORUS BLOOD (08/31/2022 12:57 AM CDT) Phosphorus 2.7(L) 2.8 - 5.1 mg/dL 08/31/2022 1:32 AM CDT [facility] Blood BLOOD SPECIMEN / Unknown Venipuncture / Unknown 08/31/2022 12:57 AM CDT 08/31/2022 1:07 AM CDT Artemio Abarca MD LAB - CHEMISTRY MARSHAL MEDEROS [address] [address], [place] [phone] * (ABNORMAL) MAGNESIUM BLOOD (08/31/2022 12:57 AM CDT) Magnesium 1.5(L) 1.6 - 2.6 mg/dL 08/31/2022 1:32 AM CDT [facility] Blood BLOOD SPECIMEN / Unknown Venipuncture / Unknown 08/31/2022 12:57 AM CDT 08/31/2022 1:07 AM CDT Artemio Abarca MD LAB - CHEMISTRY MARSHAL MEDEROS [facility] Organization Address City/State/ZIP Co de Phone Number [facility] [address] [place] [address], [facility] [phone] * (ABNORMAL) BASIC METABOLIC PANEL (CALCIUM TOTAL) (08/31/2022 12:57 AM CDT) BUN 9 7 - 26 mg/dL 08/31/2022 1:32 AM [facility] Creatinine 0.37(L) 0.71 - 1.16 mg/dL 08/31/2022 1:32 AM [facility] Sodium 144 136 - 145 mmol/L 08/31/2022 1:32 AM [facility] Potassium 4.1 3.5 - 4.5 mmol/L 08/31/2022 1:32 AM [facility] Chloride 107 98 - 107 mmol/L 08/31/2022 1:32 AM [facility] CO2 23 22 - 29 mmol/L 08/31/2022 1:32 AM [facility] Glucose 128(H) 70 - 115 mg/dL 08/31/2022 1:32 AM [facility] Calcium 9.1 8.4 - 10.2 mg/dL 08/31/2022 1:32 AM [facility] Anion Gap 18 8 - 18 08/31/2022 1:32 AM [facility] BUN/Creatinine Ratio 24(H) 7 - 23 08/31/2022 1:32 AM [facility] Osmolality Calculated 298 270 - 300 mOsm/kg 08/31/2022 1:32 AM [facility] eGFR by CKD-EPI >90 >=90 mL/min/1.7 3 m2 08/31/2022 1:32 AM [facility] Blood BLOOD SPECIMEN / Unknown Venipuncture / Unknown 08/31/2022 12:57 AM CDT 08/31/2022 1:07 AM CDT Artemio Abarca MD LAB - CHEMISTRY MARSHAL MEDEROS [facility] Organization Address City/State/ZIP Co de Phone Number [facility] [address] [place] [address], [facility] [phone] * (ABNORMAL) CBC W AUTO DIFFERENTIAL (08/31/2022 12:57 AM CDT) WBC 11.4(H) 3.5 - 10.5 10? 3 /uL 08/31/2022 1:14 AM T [facility] RBC 2.71(L) 4.30 - 5.70 10? 6 /uL 08/31/2022 1:14 AM [facility] Hemoglobin 8.8(L) 12.0 - 17.6 g/dL 08/31/2022 1:14 AM [facility] Hematocrit 27.1(L) 35.2 - 51.7 % 08/31/2022 1:14 AM [facility] MCV 100.0(H) 80.7 - 98.3 fL 08/31/2022 1:14 AM [facility] MCH 32.5 26.7 - 34.0 pg 08/31/2022 1:14 AM [facility] MCHC 32.5 30.8 - 35.9 g/dL 08/31/2022 1:14 AM [facility] RDW-SD 56.3(H) 36.0 - 50.0 fL 08/31/2022 1:14 AM [facility] RDW-CV 15.5(H) 11.2 - 14.8 % 08/31/2022 1:14 AM [facility] Platelet Count 124(L) 150 - 400 10? 3 /uL 08/31/2022 1:14 AM [facility] MPV 12.9 9.4 - 12.9 fL 08/31/2022 1:14 AM [facility] nRBC Absolute 0.00 0 10? 3 /uL 08/31/2022 1:14 AM [facility] nRBC Auto 0.0 0 /100 WBC 08/31/2022 1:14 AM [facility] Neutrophils % 68.6 35.0 - 70.0 % 08/31/2022 1:14 AM [facility] Lymphocytes % 16.7(L) 20.0 - 43.0 % 08/31/2022 1:14 AM [facility] Monocytes % 10.5 5.0 - 13.0 % 08/31/2022 1:14 AM [facility] Eosinophils % 3.4 0.0 - 6.0 % 08/31/2022 1:14 AM [facility] Basophil % 0.4 0.0 - 2.0 % 08/31/2022 1:14 AM [facility] Neutrophils Absolute 7.79(H) 1.60 - 7.00 10? 3 /uL 08/31/2022 1:14 AM [facility] Lymphocyte Absolute 1.90 1.10 - 3.90 10? 3 /uL 08/31/2022 1:14 AM [facility] Monocytes Absolute 1.19(H) 0.26 - 1.07 10? 3 /uL 08/31/2022 1:14 AM [facility] Eosinophils Absolute 0.39 0.00 - 0.47 10? 3 /uL 08/31/2022 1:14 AM [facility] Basophils Absolute 0.04 0.00 - 0.08 10? 3 /uL 08/31/2022 1:14 AM [facility] Immature Granulocytes % 0.4 0.0 - 1.0 % 08/31/2022 1:14 AM [facility] Immature Granulocytes Absolute 0.05 08/31/2022 1:14 AM [facility] Blood BLOOD SPECIMEN / Unknown Venipuncture / Unknown 08/31/2022 12:57 AM CDT 08/31/2022 1:07 AM CDT Artemio Abarca MD LAB - HEMATOLOGY ORD ERABLES [facility] [address] [place] [address], [facility] [phone] * (ABNORMAL) GLUCOSE - POINT OF CARE (08/31/2022 12:56 AM CDT) Glucose WB/POC 132(H) 70 - 115 mg/dL 08/31/2022 12:57 AM CDT [facility] Specimen Type Cap Fingerstick 2022 12:57 AM CDT [facility] Blood BLOOD SPECIMEN / Unknown 08/31/2022 12:56 AM CDT 08/31/2022 12:57 AM CDT Artemio Abarca MD LAB - POINT OF CARE ORDERABLES Performing Organization Address City/[facility]/ZIP Co de Phone Number [address] [address], [place] [phone] * (ABNORMAL) GLUCOSE - POINT OF CARE (08/30/2022 8:48 PM CDT) Glucose WB/POC 124(H) 70 - 115 mg/dL 08/31/2022 12:57 AM CDT [facility] Specimen Type Cap Fingerstick 2022 12:57 AM CDT [facility] Blood BLOOD SPECIMEN / Unknown 08/30/2022 8:48 PM CDT 08/31/2022 12:57 AM CDT Artemio Abarca MD LAB - POINT OF CARE ORDERABLES Performing Organization Address [facility]/ZIP Co de Phone Number [address] [address], [place] [phone] * GLUCOSE - POINT OF CARE (08/30/2022 4:30 PM CDT) Glucose WB/POC 95 70 - 115 mg/dL 08/30/2022 4:35 PM CDT [facility] Specimen Type Cap Fingerstick 2022 4:35 PM CDT [facility] Blood BLOOD SPECIMEN / Unknown 08/30/2022 4:30 PM CDT 08/30/2022 4:35 PM CDT Artemio Abarca MD LAB - POINT OF CARE ORDERABLES [address] [address], [facility] [phone] * ECHO COMPLETE (08/30/2022 4:19 PM CDT) Anatomical Region Laterality Modality Chest Echo 08/30/2022 3:41 PM CDT Narrative Procedure Note Binta George MD - 08/31/2022 Artemio Abarca MD ECHOCARDIOGRAPHY RAD IANT * GLUCOSE - POINT OF CARE (08/30/2022 12:35 PM CDT) [facility] Glucose WB/POC 92 70 - 115 mg/dL 08/30/2022 12:36 PM CDT [facility] Specimen Type Cap Fingerstick 2022 12:36 PM CDT [facility] Blood BLOOD SPECIMEN / Unknown 08/30/2022 12:35 PM CDT 08/30/2022 12:36 PM CDT Artemio Abarca MD LAB - POINT OF CARE ORDERABLES [address] [address], [facility] [phone] * CULTURE BLOOD (08/30/2022 9:55 AM CDT) [facility] Culture No growth day 5 JELLY 09/04/2022 2:01 PM CDT [facility] Blood PERIPHERAL BLOOD / Unknown Venipuncture / Unknown 08/30/2022 9:55 AM CDT 08/30/2022 10:01 AM CDT Artemio Abarca MD LAB - MICROBIOLOGY O RDERABLES [facility] [address] [place] [address], [place] [phone] * (ABNORMAL) VALPROIC ACID LEVEL (08/30/2022 9:52 AM CDT) Pathologist [facility] Valproic Acid Total <13(L) 50 - 100 ug/mL 08/30/2022 10:57 AM CDT [facility] Blood BLOOD SPECIMEN / Unknown Venipuncture / Unknown 08/30/2022 9:52 AM CDT 08/30/2022 10:01 AM CDT Artemio Abarca MD LAB - CHEMISTRY ORDE GATITO [address] [address], [place] [phone] * CULTURE BLOOD (08/30/2022 9:40 AM CDT) [facility] Culture No growth day 5 JELLY 09/04/2022 2:01 PM CDT [facility] Blood PERIPHERAL BLOOD / Unknown Venipuncture / Unknown 08/30/2022 9:40 AM CDT 08/30/2022 10:00 AM CDT Artemio Abarca MD LAB - MICROBIOLOGY O RDERABLES Performing Organization Address [facility]/ZIP Co de Phone Number [facility] [address] [place] [address], [facility] [phone] * (ABNORMAL) GLUCOSE - POINT OF CARE (08/30/2022 4:36 AM CDT) [facility] Glucose WB/POC 127(H) 70 - 115 mg/dL 08/30/2022 4:38 AM CDT [facility] Specimen Type Cap Fingerstick 2022 4:38 AM CDT [facility] Blood BLOOD SPECIMEN / Unknown 08/30/2022 4:36 AM CDT 08/30/2022 4:38 AM CDT Artemio Abarca MD LAB - POINT OF CARE ORDERABLES Performing Organization Address [facility]/ZIP Co de Phone Number [address] [address], [place] [phone] * GLUCOSE - POINT OF CARE (08/30/2022 12:39 AM CDT) Pathologist [facility] Glucose WB/POC 99 70 - 115 mg/dL 08/30/2022 12:40 AM [facility] Specimen Type Venous 08/30/2022 12:40 AM [facility] Blood BLOOD SPECIMEN / Unknown 08/30/2022 12:39 AM CDT 08/30/2022 12:40 AM CDT Artemio Abarca MD LAB - POINT OF CARE ORDERABLES [facility] [address] [place] [address], [facility] [phone] * (ABNORMAL) BASIC METABOLIC PANEL (CALCIUM TOTAL) (08/30/2022 12:39 AM CDT) [facility] BUN 12 7 - 26 mg/dL 08/30/2022 1:18 AM [facility] Creatinine 0.45(L) 0.71 - 1.16 mg/dL 08/30/2022 1:18 AM [facility] Sodium 141 136 - 145 mmol/L 08/30/2022 1:18 AM [facility] Potassium 3.6 3.5 - 4.5 mmol/L 08/30/2022 1:18 AM [facility] Chloride 111(H) 98 - 107 mmol/L 08/30/2022 1:18 AM [facility] CO2 24 22 - 29 mmol/L 08/30/2022 1:18 AM [facility] Glucose 107 70 - 115 mg/dL 08/30/2022 1:18 AM [facility] Calcium 9.4 8.4 - 10.2 mg/dL 08/30/2022 1:18 AM [facility] Anion Gap 10 8 - 18 08/30/2022 1:18 AM [facility] BUN/Creatinine Ratio 27(H) 7 - 23 08/30/2022 1:18 AM [facility] Osmolality Calculated 292 270 - 300 mOsm/kg 08/30/2022 1:18 AM [facility] eGFR by CKD-EPI >90 >=90 mL/min/1.7 3 m2 08/30/2022 1:18 AM [facility] Blood BLOOD SPECIMEN / Unknown Venipuncture / Unknown 08/30/2022 12:39 AM CDT 08/30/2022 12:48 AM CDT Artemio Abarca MD LAB - CHEMISTRY [facility] Organization Address City/State/ZIP Co de Phone Number [facility] [address] [place] [address], [facility] [phone] * (ABNORMAL) CBC W AUTO DIFFERENTIAL (08/30/2022 12:39 AM CDT) WBC 11.8(H) 3.5 - 10.5 10? 3 /uL 08/30/2022 1:05 AM [facility] RBC 2.73(L) 4.30 - 5.70 10? 6 /uL 08/30/2022 1:05 AM [facility] Hemoglobin 8.9(L) 12.0 - 17.6 g/dL 08/30/2022 1:05 AM [facility] Hematocrit 27.8(L) 35.2 - 51.7 % 08/30/2022 1:05 AM [facility] MCV 101.8(H) 80.7 - 98.3 fL 08/30/2022 1:05 AM [facility] MCH 32.6 26.7 - 34.0 pg 08/30/2022 1:05 AM [facility] MCHC 32.0 30.8 - 35.9 g/dL 08/30/2022 1:05 AM [facility] RDW-SD 58.0(H) 36.0 - 50.0 fL 08/30/2022 1:05 AM [facility] RDW-CV 15.6(H) 11.2 - 14.8 % 08/30/2022 1:05 AM [facility] Platelet Count 109(L) 150 - 400 10? 3 /uL 08/30/2022 1:05 AM [facility] MPV 13.3(H) 9.4 - 12.9 fL 08/30/2022 1:05 AM [facility] Immature Platelet Fraction 9.3(H) 1.1 - 6.2 % 08/30/2022 1:05 AM [facility] nRBC Absolute 0.00 0 10? 3 /uL 08/30/2022 1:05 AM [facility] nRBC Auto 0.0 0 /100 WBC 08/30/2022 1:05 AM [facility] Neutrophils % 71.6(H) 35.0 - 70.0 % 08/30/2022 1:05 AM [facility] Lymphocytes % 15.4(L) 20.0 - 43.0 % 08/30/2022 1:05 AM [facility] Monocytes % 11.2 5.0 - 13.0 % 08/30/2022 1:05 AM [facility] Eosinophils % 1.3 0.0 - 6.0 % 08/30/2022 1:05 AM [facility] Basophil % 0.2 0.0 - 2.0 % 08/30/2022 1:05 AM [facility] Neutrophils Absolute 8.42(H) 1.60 - 7.00 10? 3 /uL 08/30/2022 1:05 AM [facility] Lymphocyte Absolute 1.81 1.10 - 3.90 10? 3 /uL 08/30/2022 1:05 AM [facility] Monocytes Absolute 1.32(H) 0.26 - 1.07 10? 3 /uL 08/30/2022 1:05 AM [facility] Eosinophils Absolute 0.15 0.00 - 0.47 10? 3 /uL 08/30/2022 1:05 AM [facility] Basophils Absolute 0.02 0.00 - 0.08 10? 3 /uL 08/30/2022 1:05 AM [facility] Immature Granulocytes % 0.3 0.0 - 1.0 % 08/30/2022 1:05 AM [facility] Immature Granulocytes Absolute 0.03 08/30/2022 1:05 AM [facility] Blood BLOOD SPECIMEN / Unknown Venipuncture / Unknown 08/30/2022 12:39 AM CDT 08/30/2022 12:48 AM CDT Artemio Abarca MD LAB - HEMATOLOGY ORD ERABLES [address] [address], [place] [phone] * GLUCOSE - POINT OF CARE (08/29/2022 9:03 PM CDT) Glucose WB/POC 89 70 - 115 mg/dL 08/29/2022 9:04 PM CDT [facility] Specimen Type Cap Fingerstick 2022 9:04 PM CDT [facility] Blood BLOOD SPECIMEN / Unknown 08/29/2022 9:03 PM CDT 08/29/2022 9:04 PM CDT Artemio Abarca MD LAB - POINT OF CARE ORDERABLES Performing Organization Address City/[facility]/ZIP Co de Phone Number [address] [address], [place] [phone] * GLUCOSE - POINT OF CARE (08/29/2022 5:01 PM CDT) Glucose WB/POC 92 70 - 115 mg/dL 08/29/2022 5:12 PM CDT [facility] Specimen Type Cap Fingerstick 2022 5:12 PM CDT [facility] Blood BLOOD SPECIMEN / Unknown 08/29/2022 5:01 PM CDT 08/29/2022 5:12 PM CDT Artemio Abarca MD LAB - POINT OF CARE ORDERABLES [address] [address], [place] [phone] * GLUCOSE - POINT OF CARE (08/29/2022 1:31 PM CDT) Glucose WB/POC 108 70 - 115 mg/dL 08/29/2022 1:43 PM CDT [facility] Specimen Type Cap Fingerstick 2022 1:43 PM CDT [facility] Blood BLOOD SPECIMEN / Unknown 08/29/2022 1:31 PM CDT 08/29/2022 1:43 PM CDT Artemio Abarca MD LAB - POINT OF CARE ORDERABLES Performing Organization Address City/[facility]/ZIP Co de Phone Number [address] [address], [place] [phone] * (ABNORMAL) GLUCOSE - POINT OF CARE (08/29/2022 8:25 AM CDT) Glucose WB/POC 132(H) 70 - 115 mg/dL 08/29/2022 8:37 AM CDT [facility] Specimen Type Cap Fingerstick 2022 8:37 AM CDT [facility] Blood BLOOD SPECIMEN / Unknown 08/29/2022 8:25 AM CDT 08/29/2022 8:37 AM CDT Artemio Abarca MD LAB - POINT OF CARE ORDERABLES Performing Organization Address [facility]/ZIP Co de Phone Number [address] [address], [place] [phone] * GLUCOSE - POINT OF CARE (08/29/2022 5:45 AM CDT) Glucose WB/POC 99 70 - 115 mg/dL 08/29/2022 12:18 PM CDT [facility] Specimen Type Venous 08/29/2022 12:18 PM CDT [facility] Blood BLOOD SPECIMEN / Unknown 08/29/2022 5:45 AM CDT 08/29/2022 12:18 PM CDT Ilir Mckenzie MD LAB - POINT OF CARE ORDERABLES Performing Organization Address City/[facility]/ZIP Co de Phone Number [address] [address], [place] [phone] * HEMOGLOBIN A1C (08/29/2022 5:37 AM CDT) Pathologist [facility] Hemoglobin A1c 4.4 <=5.6 % 08/29/2022 11:42 AM T [facility] Estimated Average Glucose 80 mg/dL 08/29/2022 11:42 AM T [facility] Comment: HbA1c Interpretation: Normal : < 5.7% Pre-diabetes: 5.7-6.4% Diabetes: Equal to or greater than 6.5% Test results diagnostic of diabetes should be repeated for confirmation. Treatment target values recommended by ADA and other clinical organizations should be used to evaluate metabolic control in patients. Reference: [place] [employer], Standards of Care in Diabetes -2020 In patients 70 years and older consider HbA1c target range of 7.0-7.5% (Reference: Lukas Matamoros et al. MAXIMILIANODA. 2012) The Sebia assay for the measurement of HbA1c is a National Glycohemoglobin Standardization Program (NGSP) certified method. Blood BLOOD SPECIMEN / Unknown Venipuncture / Unknown 08/29/2022 5:37 AM CDT 08/29/2022 5:52 AM CDT [employer]GRAMMER[employer]SUPERVISOR [employer] LAB - CHEMISTRY OR DERABLES Performing Organization Address City/State/[facility] Co de Phone Number [facility] [address] [address], [facility] [phone] * (ABNORMAL) CBC W AUTO DIFFERENTIAL (08/29/2022 5:37 AM CDT) Pathologist [facility] WBC 12.0(H) 3.5 - 10.5 10? 3 /uL 08/29/2022 6:15 AM CDT [facility] RBC 2.94(L) 4.30 - 5.70 10? 6 /uL 08/29/2022 6:15 AM T [facility] Hemoglobin 9.4(L) 12.0 - 17.6 g/dL 08/29/2022 6:15 AM T [facility] Hematocrit 30.0(L) 35.2 - 51.7 % 08/29/2022 6:15 AM T [facility] MCV 102.0(H) 80.7 - 98.3 fL 08/29/2022 6:15 AM [facility] MCH 32.0 26.7 - 34.0 pg 08/29/2022 6:15 AM [facility] MCHC 31.3 30.8 - 35.9 g/dL 08/29/2022 6:15 AM [facility] RDW-SD 59.7(H) 36.0 - 50.0 fL 08/29/2022 6:15 AM [facility] RDW-CV 16.1(H) 11.2 - 14.8 % 08/29/2022 6:15 AM [facility] Platelet Count 112(L) 150 - 400 10? 3 /uL 08/29/2022 6:15 AM [facility] MPV 08/29/2022 6:15 AM [facility] Comment:Unable to Report Immature Platelet Fraction 11.2(H) 1.1 - 6.2 % 08/29/2022 6:15 AM [facility] nRBC Absolute 0.00 0 10? 3 /uL 08/29/2022 6:15 AM [facility] nRBC Auto 0.0 0 /100 WBC 08/29/2022 6:15 AM [facility] Neutrophils % 74.5(H) 35.0 - 70.0 % 08/29/2022 6:15 AM [facility] Lymphocytes % 13.2(L) 20.0 - 43.0 % 08/29/2022 6:15 AM [facility] Monocytes % 10.6 5.0 - 13.0 % 08/29/2022 6:15 AM [facility] Eosinophils % 1.2 0.0 - 6.0 % 08/29/2022 6:15 AM [facility] Basophil % 0.2 0.0 - 2.0 % 08/29/2022 6:15 AM [facility] Neutrophils Absolute 8.93(H) 1.60 - 7.00 10? 3 /uL 08/29/2022 6:15 AM [facility] Lymphocyte Absolute 1.59 1.10 - 3.90 10? 3 /uL 08/29/2022 6:15 AM CDT [facility] Monocytes Absolute 1.27(H) 0.26 - 1.07 10? 3 /uL 08/29/2022 6:15 AM CDT [facility] Eosinophils Absolute 0.15 0.00 - 0.47 10? 3 /uL 08/29/2022 6:15 AM CDT [facility] Basophils Absolute 0.03 0.00 - 0.08 10? 3 /uL 08/29/2022 6:15 AM CDT [facility] Immature Granulocytes % 0.3 0.0 - 1.0 % 08/29/2022 6:15 AM CDT [facility] Immature Granulocytes Absolute 0.04 08/29/2022 6:15 AM CDT [facility] Blood BLOOD SPECIMEN / Unknown Venipuncture / Unknown 08/29/2022 5:37 AM CDT 08/29/2022 5:52 AM CDT Ilir Mckenzie MD LAB - HEMATOLOGY ORD ERABLES [facility] [address] [place] [address], [facility] [phone] * (ABNORMAL) CULTURE URINE (08/29/2022 5:14 AM CDT) [facility] Culture Urine 50,000-100,000 CFU/mL Pseudomonas aeruginosa(A) JELLY 09/01/2022 12:49 AM CDT [facility] Culture Urine 50,000-100,000 CFU/mL urogenital domenico 09/01/2022 12:49 AM CDT [facility] Urine URINE SPECIMEN OBTAINED BY CLEAN CATCH PROCEDURE / Unknown Collection / Unknown 08/29/2022 5:14 AM CDT 08/29/2022 5:43 AM CDT Narrative Organism Antibiotic Method Susceptibility Pseudomonas aeruginosa Amikacin JELLY 4 ug/mL: Susceptible Pseudomonas aeruginosa Cefepime JELLY 4 ug/mL: Susceptible Pseudomonas aeruginosa Ceftazidime JELLY 4 ug/mL: Susceptible Pseudomonas aeruginosa Ciprofloxacin JELLY <=0.25 ug/mL: Susceptible Pseudomonas aeruginosa Gentamicin JELLY 2 ug/mL: Susceptible Pseudomonas aeruginosa Meropenem JELLY <=0.25 ug/mL: Susceptible Pseudomonas aeruginosa Piperacillin-tazobactam JELLY <=4 ug/mL: Susceptible Pseudomonas aeruginosa Tobramycin JELLY <=1 ug/mL: Susceptible Ilir Mckenzie MD LAB - MICROBIOLOGY O RDERABLES [facility] [address] [place] [address], [facility] [phone] * (ABNORMAL) CULTURE SPUTUM+GRAM STAIN (08/29/2022 5:13 AM CDT) Culture Moderate Pseudomonas aeruginosa(A) JELLY 08/31/2022 2:49 AM CDT [facility] Culture Moderate Staphylococcus aureus methicillin-resista nt (MRSA)(A) JELLY 08/31/2022 2:49 AM CDT [facility] Comment:Staphylococcus aureu s methicillin-resistant (MRSA) detected by penicillin binding protein immunoassay. Contact precautions required. Conventional antibiotic susceptibility testing to follow. Culture Moderate normal oropharyngeal domenico JELLY 08/31/2022 2:49 AM CDT [facility] Gram Stain <10 per low power field Squamous epithelial cells 08/31/2022 2:49 AM CDT [facility] Gram Stain >= 25 per low power field Polymorphonuclear cells 08/31/2022 2:49 AM CDT [facility] Gram Stain Heavy Gram-positive cocci 08/31/2022 2:49 AM CDT [facility] Gram Stain Moderate Gram-positive bacilli 08/31/2022 2:49 AM T [facility] Microbiology SPUTUM SPECIMEN OBTAINED FROM SPUTUM SUCTION TRAP / Unknown Collection / Unknown 08/29/2022 5:13 AM CDT 08/29/2022 5:43 AM CDT Narrative [facility] - 08/31/2022 2:49 AM CDT Methicillin-resistant Staphylococci (MRSA) are resistant to all currently available beta-lactam antibiotics with the exception of the newer cephalosporins with anti-MRSA activity. Contact precautions required. Organism Antibiotic Method Susceptibility Pseudomonas aeruginosa Amikacin JELLY <=2 ug/mL: Susceptible Pseudomonas aeruginosa Cefepime JELLY 2 ug/mL: Susceptible Pseudomonas aeruginosa Ceftazidime JELLY 8 ug/mL: Susceptible Pseudomonas aeruginosa Ciprofloxacin JELLY <=0.25 ug/mL: Susceptible Pseudomonas aeruginosa Gentamicin JELLY <=1 ug/mL: Susceptible Pseudomonas aeruginosa Meropenem JELLY <=0.25 ug/mL: Susceptible Pseudomonas aeruginosa Piperacillin-tazobactam JELLY 32 ug/mL: Intermediate Pseudomonas aeruginosa Tobramycin JELLY <=1 ug/mL: Susceptible Staphylococcus aureus methicillin-resistant (MRSA) Clindamycin JELLY 0.25 ug/mL: Resistant Staphylococcus aureus methicillin-resistant (MRSA) Doxycycline JELLY <=0.5 ug/mL: Susceptible Staphylococcus aureus methicillin-resistant (MRSA) Gentamicin JELLY <=0.5 ug/mL: Susceptible Staphylococcus aureus methicillin-resistant (MRSA) Inducible Clindamycin Resistance JELLY POS ug/mL: Pos Staphylococcus aureus methicillin-resistant (MRSA) Linezolid JELLY 2 ug/mL: Susceptible Staphylococcus aureus methicillin-resistant (MRSA) Oxacillin JELLY >=4 ug/mL: Resistant Staphylococcus aureus methicillin-resistant (MRSA) Tetracycline JELLY <=1 ug/mL: Susceptible Staphylococcus aureus methicillin-resistant (MRSA) Trimethoprim-sulfamethoxa zole JELLY <=10 ug/mL: Susceptible Staphylococcus aureus methicillin-resistant (MRSA) Vancomycin JELLY <=0.5 ug/mL: Susceptible Comment: This isolate is presumed to be resistant to clindamycin on the basis of detection of inducible clindamycin resistance. Ilir Mckenzie MD LAB - MICROBIOLOGY O RDERABLES [facility] [address] [facility] [address] [phone] * (ABNORMAL) PT-INR [facility] (08/28/2022 10:24 PM CDT) [facility] PT 15.2(H) 12.1 - 14.8 Seconds 08/28/2022 10:59 PM CDT [facility] INR 1.2 See Comment 08/28/2022 10:59 PM CDT [facility] Comment:The suggested therap eutic range for standard coumadin (warfarin) therapy is an INR of 2.0-3.0. For high-risk patients (Mechanical Mitral Valve Prosthesis, etc.), the suggested prophylactic therapeutic range is an INR of 2.5-3.5. Blood BLOOD SPECIMEN / Unknown Venipuncture / Unknown 08/28/2022 10:24 PM CDT 08/28/2022 10:36 PM CDT [employer] PROGRAMMER[employer]SUPERVISOR [employer] LAB - COAGULATION ORDERABLES [address] [address], [facility] [phone] * PHOSPHORUS BLOOD (08/28/2022 10:24 PM CDT) Phosphorus 3.5 2.8 - 5.1 mg/dL 08/28/2022 11:05 PM CDT [facility] Blood BLOOD SPECIMEN / Unknown Venipuncture / Unknown 08/28/2022 10:24 PM CDT 08/28/2022 10:36 PM CDT [employer] PROGRAMMER-SUPERVISOR [employer] LAB - CHEMISTRY OR DERABLES Performing Organization Address City/[facility]/ZIP Co de Phone Number [address] [address], [facility] [phone] * MAGNESIUM BLOOD (08/28/2022 10:24 PM CDT) Magnesium 1.7 1.6 - 2.6 mg/dL 08/28/2022 11:05 PM CDT [facility] Blood BLOOD SPECIMEN / Unknown Venipuncture / Unknown 08/28/2022 10:24 PM CDT 08/28/2022 10:36 PM CDT [employer] PROGRAMMER-SUPERVIS[employer] LAB - CHEMISTRY OR DERABLES [address] [address], [facility] [phone] * LACTIC ACID BLOOD (08/28/2022 10:24 PM CDT) Lactic Acid-Stat 0.9 <=2.0 mmol/L 08/28/2022 10:59 PM CDT [facility] Blood BLOOD SPECIMEN / Unknown Venipuncture / Unknown 08/28/2022 10:24 PM CDT 08/28/2022 10:36 PM CDT [employer] PROGRAMMER-SUPERVISOR [employer] LAB - CHEMISTRY OR DERABLES [facility] [address] [place] [address], [facility] [phone] * (ABNORMAL) COMPREHENSIVE METABOLIC PANEL (08/28/2022 10:24 PM CDT) BUN 11 7 - 26 mg/dL 08/28/2022 11:05 PM [facility] Creatinine 0.50(L) 0.71 - 1.16 mg/dL 08/28/2022 11:05 PM [facility] Sodium 142 136 - 145 mmol/L 08/28/2022 11:05 PM [facility] Potassium 3.9 3.5 - 4.5 mmol/L 08/28/2022 11:05 PM [facility] Chloride 111(H) 98 - 107 mmol/L 08/28/2022 11:05 PM [facility] CO2 24 22 - 29 mmol/L 08/28/2022 11:05 PM [facility] Glucose 86 70 - 115 mg/dL 08/28/2022 11:05 PM [facility] Calcium 8.8 8.4 - 10.2 mg/dL 08/28/2022 11:05 PM [facility] Protein Total 6.0 6.0 - 8.3 g/dL 08/28/2022 11:05 PM [facility] Albumin 2.0(L) 3.4 - 5.0 g/dL 08/28/2022 11:05 PM [facility] Bilirubin Total 0.6 0.2 - 1.2 mg/dL 08/28/2022 11:05 PM [facility] Alkaline Phosphatase 67 40 - 150 U/L 08/28/2022 11:05 PM [facility] ALT 5 5 - 55 U/L 08/28/2022 11:05 PM [facility] AST 13 5 - 34 U/L 08/28/2022 11:05 PM [facility] Anion Gap 11 8 - 18 08/28/2022 11:05 PM T [facility] BUN/Creatinine Ratio 22 7 - 23 08/28/2022 11:05 PM T [facility] Osmolality Calculated 293 270 - 300 mOsm/kg 08/28/2022 11:05 PM [facility] Albumin/Globulin Ratio 0.5(L) 1.1 - 2.3 08/28/2022 11:05 PM [facility] eGFR by CKD-EPI >90 >=90 mL/min/1.7 3 m2 08/28/2022 11:05 PM T [facility] Blood BLOOD SPECIMEN / Unknown Venipuncture / Unknown 08/28/2022 10:24 PM CDT 08/28/2022 10:36 PM CDT [employer] PROGRAMMER-SUPERVISOR [employer] LAB - CHEMISTRY OR DERABLES Performing Organization Address City/[facility]/ZIP Co de Phone Number [address] [address], [employer] [phone] * CALCIUM IONIZED WHOLE BLOOD (08/28/2022 10:24 PM CDT) Calcium Ionized 1.34 mmol/L 08/28/2022 10:38 PM CDT [facility] pH 7.35 7.35 - 7.45 pH 08/28/2022 10:38 PM CDT [facility] Ionized Calcium pH Adjusted 1.31 1.19 - 1.34 mmol/L 08/28/2022 10:38 PM T [facility] Blood BLOOD SPECIMEN / Unknown Venipuncture / Unknown 08/28/2022 10:24 PM CDT 08/28/2022 10:37 PM CDT [employer] PROGRAMMER-SUPERVISOR [employer] LAB - CHEMISTRY OR DERABLES Performing Organization Address [facility]/ZIP Co de Phone Number [address] [address], [place] [phone] * XR CHEST 1VW PORTABLE (08/28/2022 7:12 PM CDT) Anatomical Region Laterality Modality Chest Radiographic Cynthia ging 08/29/2022 6:14 AM CDT Narrative 08/29/2022 12:30 PM CDT PROCEDURE: ??XR CHEST 1VW PORTABLE, DATE/TIME OF EXAM: ??08/28/2022 7:12 PM, LOCATION ??[facility] INDICATION: R91.8: Pulmonary infiltrate J96.21: Acute on chronic respiratory failure with hypoxia (CMS/HCC) ADDITIONAL CLINICAL INFORMATION: Ordering Provider Reason For Exam: ??acute hypoxic respiratory failure COMPARISON: Chest x-ray from 08/28/2022. FINDINGS/IMPRESSION: Thoracostomy tube terminates in the mid thoracic trachea The patient is rotated to the right. Moderate volume right pleural effusion with associated atelectasis and/or consolidation, decreased from prior study. Left lung is clear. There is no pneumothorax. The cardiomediastinal silhouette is stable. > Dictated by Nash Arreola MD (residential mortgage manager). Shane Thomason DO have personally reviewed and interpreted this examination/study. > Interpreting Provider: Shane Mckenzie DO on 08/29/2022 12:30 PM Procedure Note Shane Mckenzie DO - 08/29/2022 PROCEDURE: XR CHEST 1VW PORTABLE, DATE/TIME OF EXAM: 08/28/2022 7:12 PM, LOCATION [facility] INDICATION: R91.8: Pulmonary infiltrate J96.21: Acute on chronic respiratory failure with hypoxia (CMS/HCC) ADDITIONAL CLINICAL INFORMATION: Ordering Provider Reason For Exam: acute hypoxic respiratory failure COMPARISON: Chest x-ray from 08/28/2022. FINDINGS/IMPRESSION: Thoracostomy tube terminates in the mid thoracic trachea The patient is rotated to the right. Moderate volume right pleural effusion with associated atelectasisand/or consolidation, decreased from prior study. Left lung is clear. There isno pneumothorax. The cardiomediastinal silhouette is stable. > Dictated by Nash Arreola MD (residential mortgage manager). Shane Thomason DO have personally reviewed and interpreted this examination/study. > Interpreting Provider: Shane Mckenzie DO on 08/29/2022 12:30 PM Ilir Mckenzie MD DIAGNOSTIC IMAGING O RDERABLES * XR ABDOMEN KUB PORTABLE (08/28/2022 7:12 PM CDT) Anatomical Region Laterality Modality Abdomen Radiographic Cynthia ging 08/29/2022 6:13 AM CDT Narrative 08/29/2022 12:30 PM CDT PROCEDURE: ??XR ABDOMEN KUB PORTABLE, DATE/TIME OF EXAM: ??08/28/2022 7:12 PM, LOCATION ??[facility] INDICATION: Z86.73: History of stroke E46: Protein-calorie malnutrition, unspecified severity (CMS/HCC) ADDITIONAL CLINICAL INFORMATION: Ordering Provider Reason For Exam: ??confirm G tube COMPARISON: CT chest abdomen pelvis from 06/28/2022. FINDINGS/IMPRESSION: A G-tube is seen in the mid abdomen. Large volume right pleural effusion with associated atelectasis. Nonobstructive bowel gas pattern. Report dictated by Nash Arreola MD (residential mortgage manager). Shane Thomason DO have personally reviewed and interpreted this examination/study. > Interpreting Provider: Shane Mckenzie DO on 08/29/2022 12:30 PM Procedure Note Shnae Mckenzie DO - 08/29/2022 PROCEDURE: XR ABDOMEN KUB PORTABLE, DATE/TIME OF EXAM: 08/28/2022 7:12PM, LOCATION [facility] INDICATION: Z86.73: History of stroke E46: Protein-calorie malnutrition, unspecified severity (CMS/HCC) ADDITIONAL CLINICAL INFORMATION: Ordering Provider Reason For Exam: confirm G tube COMPARISON: CT chest abdomen pelvis from 06/28/2022. FINDINGS/IMPRESSION: A G-tube is seen in the mid abdomen. Large volume right pleural effusion with associated atelectasis. Nonobstructive bowel gas pattern. Report dictated by Nash Arreola MD (residential mortgage manager). Shane Thomason DO have personally reviewed and interpreted this examination/study. > Interpreting Provider: Shane Mckenzie DO on 08/29/2022 12:30 PM Ilir Mckenzie MD DIAGNOSTIC IMAGING O RDERABLES * (ABNORMAL) BLOOD GASES ART + COOX PANEL (08/28/2022 6:49 PM CDT) pH Arterial 7.41 7.35 - 7.45 pH 08/28/2022 6:55 PM [facility] pO2 Arterial 79(L) 80 - 100 mmHg 08/28/2022 6:55 PM [facility] pCO2 Arterial 41 35 - 45 mmHg 6:55 PM [facility] HCO3 Arterial 26.0 20.0 - 30.0 mmol/L 08/28/2022 6:55 PM [facility] BE Arterial 1.2 -2.0 - 2.0 mmol/L 08/28/2022 6:55 PM [facility] Oxyhemoglobin Arterial 93.4 % 08/28/2022 6:55 PM [facility] Dexoyhemoglobin (HHB) % 3.6 % 08/28/2022 6:55 PM [facility] Methemoglobin 0.8 0.0 - 2.0 % 08/28/2022 6:55 PM [facility] Carboxyhemoglobin 2.2(H) 0.0 - 2.0 % 2022 6:55 PM [facility] O2 Content Arterial 12.8 Interpret within clinical context ml/dL 08/28/2022 6:55 PM [facility] Hemoglobin by COOX 9.7(L) 12.0 - 17.6 g/dL 08/28/2022 6:55 PM [facility] O2 Saturation Arterial 96 90 - 100 % 08/28/2022 6:55 PM [facility] FI O2 Arterial 50.0 % 08/28/2022 6:55 PM [facility] Blood, arterial ARTERIAL BLOOD SPECIMEN / Unknown Arterial Puncture / Unknown 08/28/2022 6:49 PM CDT 08/28/2022 6:52 PM [facility] - 08/28/2022 6:55 PM [facility] Carboxyhemoglobin Normal Concentration: Non-smokers: 0-2%; Smokers: 0-9%; Toxic: >20% Ilir Mckenzie MD LAB - BLOOD GASES OR DERABLES [facility] [address] [place] [address], [facility] [phone] * (ABNORMAL) URINALYSIS REFLEX TO MICROSCOPIC NO CULTURE (08/28/2022 3:16 PM CDT) Color UA Yellow Straw, Yellow 08/28/2022 3:32 PM CDT [facility] Clarity UA Slt Cloudy(A) Clear 08/28/2022 3:32 PM CDT [facility] Specific [place] UA 1.010 1.005 - 1.030 08/28/2022 3:32 PM CDT [facility] pH UA 8.0 5.0 - 8.0 pH 08/28/2022 3:32 PM T [facility] Protein UA Negative Negative 08/28/2022 3:32 PM CDT [facility] Glucose UA Negative Negative 08/28/2022 3:32 PM CDT [facility] Ketone UA Negative Negative 08/28/2022 3:32 PM CDT [facility] Bilirubin UA Negative Negative 08/28/2022 3:32 PM CDT [facility] Blood UA Negative Negative 08/28/2022 3:32 PM CDT [facility] Nitrite UA Negative Negative 08/28/2022 3:32 PM [facility] Leukocyte Esterase 2+(A) Negative 08/28/2022 3:32 PM CDT [facility] Urobilinogen UA 2.0(A) Negative mg/dL 08/28/2022 3:32 PM [facility] RBC UA 6-10(A) None Seen, 0-2, 3-5 /HPF 08/28/2022 3:32 PM [facility] WBC UA 21-50(A) None Seen, 0-5 /HPF 08/28/2022 3:32 PM [facility] Bacteria UA Trace(A) None /HPF 08/28/2022 3:32 PM [facility] Squamous Epithelial Cells UA None Seen None Seen, 0-2, 3-5 /HPF 08/28/2022 3:32 PM [facility] Mucus UA 1+ /LPF 08/28/2022 3:32 PM [facility] Urine URINE SPECIMEN OBTAINED BY CLEAN CATCH PROCEDURE / Unknown Collection / Unknown 08/28/2022 3:16 PM CDT 08/28/2022 3:23 PM CDT Narrative [facility] - 08/28/2022 3:32 PM CDT Leonardo Clarke MD LAB - URINALYSIS ORD ERABLES [facility] [address] [place] [address], [facility] [phone] * XR CHEST 1VW PORTABLE (08/28/2022 3:12 PM CDT) Anatomical Region Laterality Modality Chest Radiographic Cynthia ging 08/28/2022 5:51 PM CDT Impressions 08/28/2022 7:25 PM CDT IMPRESSION: Large right pleural effusion resulting in near complete collapse of the right lung and with ill-defined/groundglass opacities of the remaining aerated portion of the right upper lung zone. Report dictated by Ashu Welch M.D. (residential mortgage manager) [place] MD, PhD have personally reviewed and interpreted this examination/study. > Interpreting Provider: Georgia Lees MD, PhD on 08/28/2022 7:25 PM Narrative 08/28/2022 7:25 PM CDT EXAM: XR CHEST 1VW PORTABLE DATE/TIME: 08/28/2022 3:13 PM LOCATION: ??[facility] HISTORY: R06.02: SOB (shortness of breath) COMPARISON: Chest radiograph 07/16/2022. FINDINGS: Lines/Tubes: Re-demonstrated tracheostomy tube, which projects over the superior aspect of the trachea and is ~7 cm above the brionna. Pleura/Lungs: Large right pleural effusion resulting in near complete collapse of the right lung and with ill-defined/groundglass opacities of the remaining aerated portion of the right upper lung zone. Left lung is clear. No left pleural effusion. No conspicuous pneumothorax. Mediastinum/Other: Right cardiomediastinal silhouette is obscured by the large right pleural effusion. Bones: Visible bony thorax is intact. Procedure Note Georgia Lees MD - 08/28/2022 EXAM: XR CHEST 1VW PORTABLE DATE/TIME: 08/28/2022 3:13 PM LOCATION: [facility] HISTORY: R06.02: SOB (shortness of breath) COMPARISON: Chest radiograph 07/16/2022. FINDINGS: Lines/Tubes: Re-demonstrated tracheostomy tube, which projects over the superior aspect of the trachea and is ~7 cm above the brionna. Pleura/Lungs: Large right pleural effusion resulting in near complete collapse of the right lung and with ill-defined/groundglass opacities of the remaining aerated portion of the right upper lung zone. Left lung is clear. No left pleural effusion. No conspicuous pneumothorax. Mediastinum/Other: Right cardiomediastinal silhouette is obscured by the large right pleural effusion. Bones: Visible bony thorax is intact. IMPRESSION: Large right pleural effusion resulting in near complete collapse of the right lung and with ill-defined/groundglass opacities of the remaining aerated portion of the right upper lung zone. Report dictated by Ashu Welch M.D. (residential mortgage manager) I, Georgia Lees MD, PhD have personally reviewed and interpreted this examination/study. > Interpreting Provider: Georgia Lees MD, PhD on 08/28/2022 7:25 PM Leonardo Clarke MD DIAGNOSTIC IMAGING O RDERABLES * TROPONIN-I HIGH SENSITIVE REFLEX 1HOUR (08/28/2022 2:47 PM CDT) Troponin I High Sensitive 9 <=35 ng/L 08/28/2022 3:26 PM CDT [facility] Delta Troponin I HS 08/28/2022 3:26 PM CDT [facility] Comment:Delta value intentio maria del rosario not calculated. Baseline to 1 hour specimen collection interval exceeded. Blood BLOOD SPECIMEN / Unknown Venipuncture / Unknown 08/28/2022 2:47 PM CDT 08/28/2022 2:51 PM CDT Leonardo Clarke MD LAB - CHEMISTRY MARSHAL MEDEROS [facility] Organization Address City/State/ZIP Co de Phone Number [facility] [address] [place] [address], [facility] [phone] * (ABNORMAL) MRSA DNA PCR (08/28/2022 2:42 PM CDT) Pathologist [facility] MRSA DNA by PCR Detected( A) Not detected 08/28/2022 7:52 PM CDT [facility] Microbiology SPECIMEN FROM NASAL FOSSAE / Unknown Collection / Unknown 08/28/2022 2:42 PM CDT 08/28/2022 2:44 PM CDT Narrative [facility] - 08/28/2022 7:52 PM CDT 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 Leonardo Clarke MD LAB - MICROBIOLOGY O VANESSA [facility] [address] [place] [address], [facility] [phone] * (ABNORMAL) BCID PANEL (08/28/2022 12:51 PM CDT) Pathologist [facility] Staphylococcus species Detected (A) Not detected 08/29/2022 2:27 PM CDT [facility] Comment:Staphylococcus speci es (not S. aureus, S. lugdunensis, or S. epidermidis). Blood PERIPHERAL BLOOD / Unknown Venipuncture / Unknown 08/28/2022 12:51 PM CDT 08/28/2022 1:02 PM CDT Narrative [facility] - 08/29/2022 2:27 PM CDT Blood Culture ID Panel performed by [employer] multiplex PCR. Test Panel includes: Antimicrobial Resistance Genes: Mec A/C and MREJ (methicillin-resistance gene-MRSA) and van A/B (vancomycin-resistance gene). Gram Positive Bacteria: Enterococcus faecalis, Enterococcus faecium, Staphylococcus (genus), Staphylococcus aureus, Staphylococcus epidermidis, Staphylococcus lugdunensis, Streptococcus (genus), Streptococcus agalactiae (Group B), Streptococcus pneumoniae, Streptococcus pyogenes (Group A). Leonardo Clarke MD LAB - MICROBIOLOGY O RDERABLES [facility] [address] [place], [place] [address], [facility] [phone] * PROCALCITONIN LEVEL (08/28/2022 12:51 PM CDT) PROCALCITONIN <0.02 <=0.10 ng/mL 08/28/2022 1:42 PM CDT [facility] Blood BLOOD SPECIMEN / Unknown Venipuncture / Unknown 08/28/2022 12:51 PM CDT 08/28/2022 1:02 PM CDT Narrative [facility] - 08/28/2022 1:42 PM CDT The change in procalcitonin (PCT) [...] Change in Procalcitonin Calculator is available at [email or web address] ?? If clinical picture has not improved and PCT remains high, reevaluate and consider treatment failure or other causes. Leonardo D Elster MD LAB - CHEMISTRY LUCIByron [facility] [address] [place] [address], [facility] [phone] * (ABNORMAL) CULTURE BLOOD (08/28/2022 12:51 PM CDT) Culture Growth of Staphylococcus capitis(AA) JELLY 08/31/2022 12:09 PM CDT [facility] Gram Stain Gram-positive cocci in clusters(AA) 08/31/2022 12:09 PM CDT [facility] Blood PERIPHERAL BLOOD / Unknown Venipuncture / Unknown 08/28/2022 12:51 PM CDT 08/28/2022 1:02 PM CDT Narrative [facility] - 08/31/2022 12:09 PM CDT Pos @ 18.5 hours Organism Antibiotic Method Susceptibility Staphylococcus capitis Clindamycin JELLY >=4 ug/mL: Resistant Staphylococcus capitis Doxycycline JELLY <=0.5 ug/mL: Susceptible Staphylococcus capitis Gentamicin JELLY <=0.5 ug/mL: Susceptible Staphylococcus capitis Inducible Clindam ycin Resistance JELLY NEG ug/mL: Neg Staphylococcus capitis Linezolid JELLY 2 ug/mL: Susceptible Staphylococcus capitis Oxacillin JELLY >=4 ug/mL: Resistant Staphylococcus capitis Tetracycline JELLY <=1 ug/mL: Susceptible Staphylococcus capitis Trimethoprim-sulf amethoxazol e JELLY <=10 ug/mL: Susceptible Staphylococcus capitis Vancomycin JELLY 1 ug/mL: Susceptible Leonardo Clarke MD LAB - MICROBIOLOGY O RDERABLES [facility] [address] [place] [address], [facility] [phone] * TROPONIN-I HIGH SENSITIVE BASELINE + 1HR (08/28/2022 12:51 PM CDT) Troponin I High Sensitive 10 <=35 ng/L 08/28/2022 1:37 PM CDT [facility] Blood BLOOD SPECIMEN / Unknown Venipuncture / Unknown 08/28/2022 12:51 PM CDT 08/28/2022 1:03 PM CDT Leonardo Clarke MD LAB - CHEMISTRY MARSHAL [facility] [address] [address], [place] [phone] * LACTIC ACID BLOOD REFLEX TO REPEAT (08/28/2022 12:51 PM CDT) Pathologist [facility] Lactic Acid-Stat 1.4 <=2.0 mmol/L 08/28/2022 1:27 PM CDT [facility] Blood BLOOD SPECIMEN / Unknown Venipuncture / Unknown 08/28/2022 12:51 PM CDT 08/28/2022 1:03 PM CDT Leonardo Clarke MD LAB - CHEMISTRY MARSHAL MEDEROS Performing Organization Address City/[facility]/ZIP Co de Phone Number [address] [address], [place] [phone] * (ABNORMAL) COMPREHENSIVE METABOLIC PANEL (08/28/2022 12:51 PM CDT) Pathologist [facility] BUN 12 7 - 26 mg/dL 08/28/2022 1:31 PM T [facility] Creatinine 0.51(L) 0.71 - 1.16 mg/dL 08/28/2022 1:31 PM [facility] Sodium 139 136 - 145 mmol/L 08/28/2022 1:31 PM [facility] Potassium 4.5 3.5 - 4.5 mmol/L 08/28/2022 1:31 PM [facility] Chloride 103 98 - 107 mmol/L 08/28/2022 1:31 PM [facility] CO2 27 22 - 29 mmol/L 08/28/2022 1:31 PM [facility] Glucose 100 70 - 115 mg/dL 08/28/2022 1:31 PM T [facility] Calcium 9.8 8.4 - 10.2 mg/dL 08/28/2022 1:31 PM T [facility] Protein Total 7.5 6.0 - 8.3 g/dL 08/28/2022 1:31 PM [facility] Albumin 2.5(L) 3.4 - 5.0 g/dL 08/28/2022 1:31 PM [facility] Bilirubin Total 0.5 0.2 - 1.2 mg/dL 08/28/2022 1:31 PM [facility] Alkaline Phosphatase 88 40 - 150 U/L 08/28/2022 1:31 PM [facility] ALT 6 5 - 55 U/L 08/28/2022 1:31 PM [facility] AST 14 5 - 34 U/L 08/28/2022 1:31 PM [facility] Anion Gap 14 8 - 18 08/28/2022 1:31 PM [facility] BUN/Creatinine Ratio 24(H) 7 - 23 08/28/2022 1:31 PM [facility] Osmolality Calculated 288 270 - 300 mOsm/kg 08/28/2022 1:31 PM [facility] Albumin/Globulin Ratio 0.5(L) 1.1 - 2.3 08/28/2022 1:31 PM [facility] eGFR by CKD-EPI >90 >=90 mL/min/1.7 3 m2 08/28/2022 1:31 PM [facility] Blood BLOOD SPECIMEN / Unknown Venipuncture / Unknown 08/28/2022 12:51 PM CDT 08/28/2022 1:03 PM T Leonardo Clarke MD LAB - CHEMISTRY MARSHAL MEDEROS [facility] Organization Address City/State/ZIP Co de Phone Number [facility] [address] [place] [address], [facility] [phone] * (ABNORMAL) CBC W AUTO DIFFERENTIAL (08/28/2022 12:51 PM CDT) WBC 15.4(H) 3.5 - 10.5 10? 3 /uL 08/28/2022 1:09 PM [facility] RBC 3.68(L) 4.30 - 5.70 10? 6 /uL 08/28/2022 1:09 PM [facility] Hemoglobin 11.8(L) 12.0 - 17.6 g/dL 08/28/2022 1:09 PM [facility] Hematocrit 37.0 35.2 - 51.7 % 08/28/2022 1:09 PM [facility] MCV 100.5(H) 80.7 - 98.3 fL 08/28/2022 1:09 PM [facility] MCH 32.1 26.7 - 34.0 pg 08/28/2022 1:09 PM [facility] MCHC 31.9 30.8 - 35.9 g/dL 08/28/2022 1:09 PM [facility] RDW-SD 61.5(H) 36.0 - 50.0 fL 08/28/2022 1:09 PM [facility] RDW-CV 16.6(H) 11.2 - 14.8 % 08/28/2022 1:09 PM [facility] Platelet Count 143(L) 150 - 400 10? 3 /uL 08/28/2022 1:09 PM [facility] MPV 12.9 9.4 - 12.9 fL 08/28/2022 1:09 PM [facility] Immature Platelet Fraction 10.3(H) 1.1 - 6.2 % 08/28/2022 1:09 PM [facility] nRBC Absolute 0.00 0 10? 3 /uL 08/28/2022 1:09 PM [facility] nRBC Auto 0.0 0 /100 WBC 08/28/2022 1:09 PM [facility] Neutrophils % 72.7(H) 35.0 - 70.0 % 08/28/2022 1:09 PM [facility] Lymphocytes % 15.1(L) 20.0 - 43.0 % 08/28/2022 1:09 PM [facility] Monocytes % 11.5 5.0 - 13.0 % 08/28/2022 1:09 PM [facility] Eosinophils % 0.3 0.0 - 6.0 % 08/28/2022 1:09 PM [facility] Basophil % 0.1 0.0 - 2.0 % 08/28/2022 1:09 PM CDT [facility] Neutrophils Absolute 11.17(H) 1.60 - 7.00 10? 3 /uL 08/28/2022 1:09 PM CDT [facility] Lymphocyte Absolute 2.32 1.10 - 3.90 10? 3 /uL 08/28/2022 1:09 PM CDT [facility] Monocytes Absolute 1.76(H) 0.26 - 1.07 10? 3 /uL 08/28/2022 1:09 PM CDT [facility] Eosinophils Absolute 0.05 0.00 - 0.47 10? 3 /uL 08/28/2022 1:09 PM CDT [facility] Basophils Absolute 0.02 0.00 - 0.08 10? 3 /uL 08/28/2022 1:09 PM CDT [facility] Immature Granulocytes % 0.3 0.0 - 1.0 % 08/28/2022 1:09 PM CDT [facility] Immature Granulocytes Absolute 0.05 08/28/2022 1:09 PM CDT [facility] Blood BLOOD SPECIMEN / Unknown Venipuncture / Unknown 08/28/2022 12:51 PM CDT 08/28/2022 1:03 PM CDT Leonardo Clarke MD LAB - HEMATOLOGY ORD ERABLES [facility] [address] [place] [address], [facility] [phone] * (ABNORMAL) CULTURE BLOOD (08/28/2022 12:38 PM CDT) Culture Growth of Staphylococcus capitis(AA) 08/31/2022 10:51 AM CDT [facility] Gram Stain Gram-positive cocci in clusters(AA) 08/31/2022 10:51 AM CDT [facility] Blood PERIPHERAL BLOOD / Unknown Venipuncture / Unknown 08/28/2022 12:38 PM CDT 08/28/2022 1:02 PM CDT Narrative [facility] - 08/31/2022 10:51 AM CDT Positive @ 24 hours and 40 minutes Refer to previously reported susceptibility testing, specimen number: [id number] Leonardo Clarke MD LAB - MICROBIOLOGY O RDERABLES [facility] [address] [place] [address], [facility] [phone] * SARS-COV-2 (COVID-19)+INFLU A+B PCR RAPID (08/28/2022 12:20 PM CDT) COVID-19 PCR Not detected Not detected 08/29/19 1:08 PM CDT [facility] Influenza A Rapid BILLY Not Detected Not Detected 08/28/2022 1:08 PM CDT [facility] Influenza B BILLY Rapid Not Detected Not Detected 08/28/2022 1:08 PM CDT [facility] Microbiology SPECIMEN FROM NASOPHARYNGEAL STRUCTURE / Unknown Collection / Unknown 08/28/2022 12:20 PM CDT 08/28/2022 12:25 PM CDT Narrative [facility] - 08/28/2022 1:08 PM CDT Influenza assay performed by [employer]. [...] acid amplification assay performance was validated by [facility]. This test has been authorized [...] EUA assay are available upon request. Leonardo Clarke MD LAB - MICROBIOLOGY O RDERABLES Performing Organization Address [facility]/ZIP Co de Phone Number [facility] [place] [address] [place] [address], [facility] [phone] * EKG 12-LEAD (08/28/2022 12:15 PM CDT) Pathologist [facility] Ventricular Rate 125 BPM [facility] Atrial Rate 125 BPM [facility] P-R Interval 150 ms [facility] QRS Duration ms 74 ms [facility] Q-T Interval ms 292 ms [facility] QTC Calculation (Bezet) 421 ms [facility] MUSE Calculated P Boswell 49 degrees [facility] MUSE Calculated R Boswell 14 degrees [facility] MUSE Calculated T Boswell 77 degrees SL MUSE Interpretation EKG SINUS TACHYCARDIA WITH OCCASIONAL PREMATURE VENTRICULAR COMPLEXES OTHERWISE NORMAL ECG WHEN COMPARED WITH ECG OF 30-JUN-2022 03:51, NO SIGNIFICANT CHANGE WAS FOUND Confirmed by USHA OLSEN, POLLO ([id number]) on 08/29/2022 11:49:57 PM [facility] 08/28/2022 12:1 5 PM CDT 08/29/2022 11:49 PM CDT Leonardo Clarke MD ECG ORDERABLES Performing Organization Address [facility] Co de Phone Number [facility] documented in this encounter Visit Diagnoses Diagnosis Bacterial pneumonia- Primary Bacterial pneumonia, unspecified Aspiration into airway, initial encounter SOB (shortness of breath) Shortness of breath Tachypnea Pulmonary infiltrate Other nonspecific abnormal finding of lung field Acute on chronic respiratory failure with hypoxia (HCC) History of stroke Transient ischemic attack (TIA), and cerebral infarction without residual deficits Protein-calorie malnutrition, unspecified severity (HCC) Bacteremia Hyperkalemia Hyperpotassemia Aspiration pneumonitis (HCC) Pneumonitis due to inhalation of food or vomitus CVA, old, cognitive deficits Cognitive deficits, late effect of cerebrovascular disease Tachycardia Tachycardia, unspecified Paroxysmal atrial tachycardia (HCC) Paroxysmal supraventricular tachycardia Fever in other diseases Chronic respiratory failure with hypoxia (HCC) Chronic respiratory failure Hypoxia Hypoxemia COVID-19 Dysphagia, oropharyngeal phase Paroxysmal tachycardia, unspecified (HCC) Paroxysmal tachycardia, unspecified Aspiration into airway, sequela Fever, unspecified fever cause Tachypnea SOB (shortness of breath) Shortness of breath Tachycardia Tachycardia, unspecified Sepsis without acute organ dysfunction (HCC) Seizure (CMS/HCC) Other convulsions Pulmonary infiltrate Other nonspecific abnormal finding of lung field Severe protein-calorie malnutrition (HCC) Other severe protein-calorie malnutrition Paroxysmal tachycardia, unspecified (CMS/HCC) Paroxysmal tachycardia, unspecified History of CVA (cerebrovascular accident) Transient ischemic attack (TIA), and cerebral infarction without residual deficits Acute on chronic respiratory failure with hypoxia (HCC) Febrile Fever, unspecified Chronic respiratory failure with hypoxia (HCC) Chronic respiratory failure Pressure ulcer of right heel, stage 3 (HCC) Dementia, vascular (HCC) Vascular dementia, uncomplicated Essential (primary) hypertension Unspecified essential hypertension Seizure disorder (CMS/HCC) Unspecified epilepsy without mention of intractable epilepsy Zenker diverticulum Diverticulum of esophagus, acquired documented in this encounter Administered Medications Inactive Administered Medications - up to 3 most recent administrations Medication Order MAR Action Action Date Dose Rate Site 0.9% NaCl infusion at 125 mL/hr, Intravenous, CONTINUOUS, Starting on 08/28/22 at 1230, Until 08/28/22 at 1838 $ New Bag/Syringe 08/28/2022 5:11 PM CDT 125 mL/hr $ New Bag/Syringe 08/28/2022 1:25 PM CDT 125 mL /hr 0.9% NaCl injection 3 mL 3 mL, Intracatheter, EVERY 8 HOURS, First dose on 08/28/22 at 1400, Until Discontinued, Flush peripheral IV catheter with 3 mL of normal saline every 8 hours. $ Given 10/05/2022 6:08 AM CDT 3 mL $ Given 10/04/2022 10:07 PM CDT 3 mL $ Given 10/04/2022 1:11 PM CDT 3 mL 0.9% NaCl IV bolus 1,905 mL (30 mL/kg ? 63.5 kg), at 1,905 mL/hr, Administer over 60 Minutes, BOLUS IV, 1 dose, On 08/28/22 at 1230, Monitor closely and notify physician for persistent hypotension during initial 60 minutes after crystalloid 30 ml/kg bolus stop time. (hypotension = SBP LESS than 90 mmHg or MAP LESS than 65 mmHg or decrease in SBP by more than 40 mmHg from last SBP considered normal for patient) $ New Bag/Syringe 08/28/2022 12:54 PM CDT 1,905 mL 1905 mL/hr acetaminophen (Tylenol) solution 650 mg 650 mg, Enteral Tube, NOW, 1 dose, On 08/28/22 at 1500, Patient preference for lesser PRN pain meds may be honored when the patient requests a less strong medication, a lower dose, or a less intrusive route of administration when the lesser drug, dose and route have been ordered for the patient. This patient request must be documented in the MAR. $ Given 08/28/2022 4:30 PM CDT 650 mg G Tube acetaminophen (Tylenol) tablet 500 mg 500 mg, Enteral Tube, NOW, 1 dose, On Tue09/10/22 at 0000, Patient preference for lesser PRN pain meds may be honored when the patient requests a less strong medication, a lower dose, or a less intrusive route of administration when the lesser drug, dose and route have been ordered for the patient. This patient request must be documented in the MAR. $ Given 09/10/2022 12:09 AM CDT 500 mg G Tube acetaminophen (Tylenol) tablet 650 mg 650 mg, Oral, EVERY 4 HOURS PRN, Moderate Pain, Mild Pain, Starting on Marian 09/16/22 at 1303, Until 09/27/22 at 0851, Patient preference for lesser PRN pain meds may be honored when the patient requests a less strong medication, a lower dose, or a less intrusive route of administration when the lesser drug, dose and route have been ordered for the patient. This patient request must be documented in the MAR. $ Given 09/26/2022 9:42 PM CDT 650 mg $ Given 09/25/2022 6:13 PM CDT 650 mg $ Given 09/24/2022 10:13 PM CDT 650 mg acetaminophen (Tylenol) tablet 650 mg 650 mg, Enteral Tube, EVERY 4 HOURS PRN, Moderate Pain, Mild Pain, Starting on 09/27/22 at 0851, Until 11/09/22 at 1746, Patient preference for lesser PRN pain meds may be honored when the patient requests a less strong medication, a lower dose, or a less intrusive route of administration when the lesser drug, dose and route have been ordered for the patient. This patient request must be documented in the MAR. $ Given 11/03/2022 8:12 AM CDT 650 mg J Tube $ Given 10/24/2022 9:39 AM CDT 650 mg G Tube $ Given 10/18/2022 7:48 AM CDT 650 mg G Tube acetylcysteine (Mucomyst) 20 % solution 300 mg 300 mg (1.5 mL), Inhalation, EVERY 6 HOURS, 4 doses, First dose (after last modification) on [facility] 10/09/22 at 1300, Last dose on [place] 10/10/22 at 0600 $ Given 10/09/2022 10:55 PM CDT 300 mg $ Given 10/09/2022 5:10 PM CDT 300 mg $ Given 10/09/2022 1:18 PM CDT 300 mg acetylcysteine (Mucomyst) 20 % solution 600 mg 600 mg (3 mL), Inhalation, EVERY 6 HOURS, First dose on [facility] 09/02/22 at 1200, Until Discontinued $ Given 09/05/2022 6:07 AM CDT 600 mg $ Given 09/04/2022 11:15 PM CDT 600 mg $ Given 09/04/2022 4:36 PM CDT 600 mg albuterol (Proventil;Ventolin) (2.5 MG/3ML) 0.083% nebulizer solution 2.5 mg 2.5 mg, Inhalation, EVERY 6 HOURS, First dose on [place] 08/29/22 at 0815, Until Discontinued $ Given 08/30/2022 5:01 AM CDT 2.5 mg $ Given 08/29/2022 11:19 PM CDT 2.5 mg $ Given 08/29/2022 4:37 PM CDT 2.5 mg artificial tears ophthalmic ointment Each Eye, EVERY 8 HOURS, First dose on [place] 09/05/22 at 1400, Until Discontinued $ Given 11/09/2022 5:34 AM CDT $ Given 11/08/2022 9:49 PM CDT $ Given 11/08/2022 5:26 AM CDT atorvastatin (Lipitor) tablet 40 mg 40 mg, Enteral Tube, DAILY, First dose on 09/06/22 at 1230, Until Discontinued $ Given 11/09/2022 9:31 AM CDT 40 mg G Tub e $ Given 11/08/2022 9:39 AM CDT 40 mg G Tube $ Given 11/07/2022 10:31 AM CDT 40 mg G Tube bisacodyl (Dulcolax) suppository 10 mg 10 mg, Rectal, ONCE, 1 dose, On Tu09/07/22 at 0815 $ Given 09/07/2022 8:42 AM CDT 10 mg cefepime (Maxipime) 2,000 mg in 0.9% NaCl IV 50 mL IVPB 2,000 mg (2 g), at 600 mL/hr, Intravenous, NOW, 1 dose, On 08/28/22 at 1215, Indication for anti-infective therapy: Suspected infection, Site of anti-infective therapy: Lower Respiratory, Other, Other site of infection (free text): Ventilator Associated $ New Bag/Syringe 08/28/2022 3:19 PM CDT 2,000 mg 600 mL/hr cefepime (Maxipime) 2,000 mg in 0.9% NaCl IV 50 mL IVPB 2,000 mg (2 g), at 100 mL/hr, Intravenous, EVERY 8 HOURS, 19 doses, First dose on 08/28/22 at 1915, Last dose on Tue09/03/22 at 2200, Indication for anti-infective therapy: Suspected infection, Site of anti-infective therapy: Lower Respiratory, Other, Other site of infection (free text): Ventilator Associated $ New Bag/Syringe 09/03/2022 9:56 PM CDT 2,000 mg 100 mL/hr $ New Bag/Syringe 09/03/2022 1:53 PM CDT 2,000 mg 100 mL /hr $ New Bag/Syringe 09/03/2022 5:04 AM CDT 2,000 mg 100 mL /hr cefepime (Maxipime) 2,000 mg in 0.9% NaCl IV 50 mL IVPB 2,000 mg (2 g), at 100 mL/hr, Intravenous, EVERY 8 HOURS, First dose on [place] 09/09/22 at 0800, Until Discontinued, Indication for anti-infective therapy: Suspected infection, Site of anti-infective therapy: Lower Respiratory $ New Bag/Syringe 09/09/2022 11:41 PM CDT 2,000 mg 100 mL/hr $ New Bag/Syringe 09/09/2022 4:42 PM CDT 2,000 mg 100 mL /hr $ New Bag/Syringe 09/09/2022 8:52 AM CDT 2,000 mg 100 mL /hr chlorhexidine (Peridex) 0.12 % oral solution 15 mL 15 mL, Mouth/Throat, 2 TIMES DAILY, First dose on Tue09/05/22 at 1030, Until Discontinued, Swab oral mucosa for 30 seconds. Do not brush teeth immediately after use. . WASTE DISPOSAL INSTRUCTIONS: Black Bin Disposal required. $ Given 11/09/2022 9:31 AM CDT 15 mL $ Given 11/08/2022 9:50 PM CDT 15 mL $ Given 11/08/2022 9:39 AM CDT 15 mL cloBAZam (Onfi) tablet 20 mg 20 mg, Enteral Tube, 2 TIMES DAILY, First dose on Tue08/28/22 at 2115, Until Discontinued $ Given 11/09/2022 9:30 AM CDT 20 mg G Tub e $ Given 11/08/2022 9:51 PM CDT 20 mg G Tube $ Given 11/08/2022 9:39 AM CDT 20 mg G Tube dextrose 10 % IV bolus 12.5 g, at 468.75 mL/hr, Intravenous, PRN, Other, Bedside Glucose less than 70 mg/dL -If NOT able to eat and/or NPO and with IV Access, Starting on Tue09/10/22 at 1115, Until Tue11/09/22 at 1746, If NOT able to eat and/or NPO [...] NPO and with IV Access, Starting on Tue09/10/22 at 1115, Until Tu11/09/22 at 1746, If NOT able to eat and/or NPO and with IV Access: For Bedside Glucose 54-69 mg/dL - give 12.5 g Dextrose IV STAT For Bedside Glucose LESS than 54 mg/dl - verify with a second Bedside Glucose (from a different site) and give 25 g Dextrose IV STAT Re-check and Re-treat blood glucose EVERY - 10-25 minutes until blood glucose GREATER than or equal to 80 mg/dl. - If repeat bedside glucose 54-79 give 12.5 g Dextrose IV STAT NOTIFY PROVIDER OF HYPOGLYCEMIC EVENT. divalproex sprinkle (Depakote Sprinkle) capsule 500 mg 500 mg, Enteral Tube, EVERY 6 HOURS, First dose (after last modification) on Tue08/30/22 at 1200, Until Discontinued, Do not crush or chew sprinkle beads. $ Given 11/09/2022 1:25 PM CDT 500 mg G Tube $ Given 11/09/2022 5:34 AM CDT 500 mg G Tube $ Given 11/09/2022 12:00 AM CDT 500 mg G Tube enoxaparin (Lovenox) injection 40 mg 40 mg, Subcutaneous, DAILY, First dose on 08/28/22 at 1915, Until Discontinued, (for prefilled syringes) do not expel air bubble from the syringe prior to the injection Remind Patient to not rub injection site. Could cause hematoma. $ Given 11/09/2022 9:31 AM CDT 40 mg Ab dominal Tissue $ Given 11/08/2022 9:39 AM CDT 40 mg Ab dominal Tissue $ Given 11/07/2022 10:32 AM CDT 40 mg A bd Left Lower Quadrant fentaNYL (PF) (Sublimaze) injection 100 mcg 100 mcg, Intravenous, ONCE, 1 dose, On Tue09/08/22 at 0300, Patient preference for lesser PRN pain meds may be honored when the patient requests a less strong medication, a lower dose, or a less intrusive route of administration when the lesser drug, dose and route have been ordered for the patient. This patient request must be documented in the MAR. $ Given 09/08/2022 3:20 AM CDT 100 mcg fentaNYL (PF) (Sublimaze) injection 50 mcg 50 mcg, Intravenous, ONCE, 1 dose, On Tue09/08/22 at 0400, Patient preference for lesser PRN pain meds may be honored when the patient requests a less strong medication, a lower dose, or a less intrusive route of administration when the lesser drug, dose and route have been ordered for the patient. This patient request must be documented in the MAR. $ Given 09/08/2022 3:48 AM CDT 50 mcg fentaNYL (Sublimaze) injection 0.05 mg/mL ADS Med 1 dose, Starting on Tue09/08/22 at 0327, Until Tue09/08/22 at 0348, Created by cabinet override Patient preference for lesser PRN pain meds [...] NPO and withOUT IV Access, Starting on Tue09/10/22 at 1115, Until Tue11/09/22 at 1746, If NOT able to eat and/or NPO and NO IV Access: For Bedside glucose 54-69 mg/dL - Give 1 mg SQ For Bedside Glucose LESS than 54 mg/dl - verify with a second bedside glucose (from a different site) - Give 1 mg SQ Re-check and Re-treat blood glucose EVERY 10-25 [...] does not have swallowing difficulties, Starting on Tue09/10/22 at 1115, Until Tue11/09/22 at 1746, If able to eat and can swallow [...] does not have swallowing difficulties, Starting on Tue09/10/22 at 1115, Until Tue11/09/22 at 1746, If able to eat and is better [...] does not have swallowing difficulties, Starting on Tue09/10/22 at 1115, Until Tue11/09/22 at 1746, If able to eat and does not [...] Tube, EVERY 6 HOURS, First dose on Tue09/02/22 at 1200, Until Discontinued $ Given 09/07/2022 4:05 AM CDT 10 mL G Tube $ Given 09/06/2022 11:38 PM CDT 10 mL G Tube $ Given 09/06/2022 5:31 PM CDT 10 mL G Tube guaiFENesin (Robitussin) solution 10 mL 10 mL, Enteral Tube, EVERY 8 HOURS, First dose (after last modification) on Tue09/07/22 at 1400, Until Discontinued $ Given 09/08/2022 2:25 PM CDT 10 m L G Tube $ Given 09/08/2022 6:26 AM CDT 10 mL G Tube $ Given 09/07/2022 9:52 PM CDT 10 mL G Tube guaiFENesin (Robitussin) solution 10 mL 10 mL, Enteral Tube, EVERY 6 HOURS, First dose (after last modification) on Tue09/08/22 at 1800, Until Discontinued $ Given 11/09/2022 1:25 PM CDT 10 m L G Tube $ Given 11/09/2022 5:34 AM CDT 10 mL G Tube $ Given 11/09/2022 12:00 AM CDT 10 mL G Tube iopamidol (Isovue 370) 76 % contrast Intravenous, CONTRAST ONCE, Starting on Tue09/07/22 at 2307, Until [place] 09/09/22 at 2306 $ Given - Contrast 09/07/2022 11:38 PM CDT 75 mL lacosamide (Vimpat) tablet 200 mg 200 mg, Enteral Tube, 2 TIMES DAILY, First dose on Tue08/28/22 at 2130, Until Discontinued $ Given 11/08/2022 9:51 PM CDT 200 mg G Tube $ Given 11/08/2022 9:39 AM CDT 200 mg G Tube $ Given 11/07/2022 8:36 PM CDT 200 mg G Tube lactated ringers infusion at 750 mL/hr, Intravenous, CONTINUOUS, Starting on Tue09/07/22 at 1800, Until Tue09/07/22 at 1859 $ New Bag/Syringe 09/07/2022 5:55 PM CDT 750 mL/hr lactated ringers IV bolus 1,000 mL, at 248.96 mL/hr, Administer over 241 Minutes, ONCE, 1 dose, On Tue09/18/22 at 0945 $ New Bag/Syringe 09/18/2022 10:30 AM CDT 1,000 mL 248.96 mL/hr lactated ringers IV bolus 500 mL, at 491.8 mL/hr, Administer over 61 Minutes, ONCE, 1 dose, On Tue09/19/22 at 1015 $ New Bag/Syringe 09/19/2022 10:41 AM CDT 500 mL 491.8 mL/hr levalbuterol (Xopenex) nebulizer solution 1.25 mg 1.25 mg, Inhalation, EVERY 6 HOURS, First dose on Tue08/30/22 at 1200, Until Discontinued $ Given 09/01/2022 4:59 AM CDT 1.25 mg $ Given 08/31/2022 11:12 PM CDT 1.25 mg $ Given 08/31/2022 5:08 PM CDT 1.25 mg levalbuterol (Xopenex) nebulizer solution 1.25 mg 1.25 mg, Inhalation, EVERY 6 HOURS PRN, Shortness of Breath, Wheezing, Starting on Tue09/01/22 at 0945, Until Tue09/08/22 at 1446 $ Given 09/08/2022 2:44 PM CDT 1.25 mg $ Given 09/07/2022 5:56 AM CDT 1.25 mg $ Given 09/06/2022 2:22 PM CDT 1.25 mg levalbuterol (Xopenex) nebulizer solution 1.25 mg 1.25 mg, Inhalation, EVERY 6 HOURS, First dose (after last modification) on Tue09/08/22 at 1800, Until Discontinued $ Given 09/13/2022 5:39 AM CDT 1.25 mg $ Given 09/13/2022 12:11 AM CDT 1.25 mg $ Given 09/12/2022 4:39 PM CDT 1.25 mg levalbuterol (Xopenex) nebulizer solution 1.25 mg 1.25 mg, Inhalation, EVERY 12 HOURS, First dose (after last modification) on Tue09/13/22 at 2100, Until Discontinued $ Given 10/09/2022 8:21 AM CDT 1.25 mg $ Given 10/08/2022 8:50 PM CDT 1.25 mg $ Given 10/08/2022 8:42 AM CDT 1.25 mg levalbuterol (Xopenex) nebulizer solution 1.25 mg 1.25 mg, Inhalation, EVERY 6 HOURS, First dose (after last modification) on 10/09/22 at 1800, Until Discontinued $ Given 11/09/2022 12:28 PM CDT 1.25 mg $ Given 11/09/2022 6:17 AM CDT 1.25 mg $ Given 11/09/2022 12:43 AM CDT 1.25 mg levETIRAcetam (Keppra) tablet 2,000 mg 2,000 mg, Enteral Tube, 2 TIMES DAILY, First dose on 08/28/22 at 2115, Until Discontinued, Do not crush or chew because of TASTE only. $ Given 11/09/2022 9:30 AM CDT 2,000 m g G Tube $ Given 11/08/2022 9:51 PM CDT 2,000 mg G Tube $ Given 11/08/2022 9:39 AM CDT 2,000 mg G Tube lidocaine (Xylocaine MPF) 2% injection ADS Med 1 dose, Starting on Tue09/08/22 at 0320, Until Tue09/08/22 at 0340, Created by cabinet override lidocaine (Xylocaine) 2 % injection Per ET Tube, ONCE, 1 dose, On Tue09/08/22 at 0400 $ Given 09/08/2022 3:40 AM CDT 2 mL magnesium sulfate 1 g in 100 mL bolus 1 g, at 100 mL/hr, Administer over 60 Minutes, Intravenous, ONCE, 1 dose, On Tue09/12/22 at 0830, Infuse at 1 gm/hr $ New Bag/Syringe 09/12/2022 10:02 AM CDT 1 g 100 mL/hr magnesium sulfate 2 g in 50 mL bolus 2 g, at 25 mL/hr, Administer over 120 Minutes, Intravenous, ONCE, 1 dose, On Tue08/31/22 at 0630, Infuse at 1 gm/hr $ New Bag/Syringe 08/31/2022 6:18 AM CDT 2 g 25 mL/hr magnesium sulfate 2 g in 50 mL bolus 2 g, at 25 mL/hr, Administer over 120 Minutes, Intravenous, ONCE, 1 dose, On Tue09/01/22 at 0715, Infuse at 1 gm/hr $ New Bag/Syringe 09/01/2022 6:55 AM CDT 2 g 25 mL/hr magnesium sulfate 2 g in 50 mL bolus 2 g, at 25 mL/hr, Administer over 120 Minutes, Intravenous, ONCE, 1 dose, On Tue09/02/22 at 0800, Infuse at 1 gm/hr $ New Bag/Syringe 09/02/2022 8:57 AM CDT 2 g 25 mL/hr magnesium sulfate 2 g in 50 mL bolus 2 g, at 25 mL/hr, Administer over 120 Minutes, Intravenous, ONCE, 1 dose, On Tue09/11/22 at 1045, Infuse at 1 gm/hr $ New Bag/Syringe 09/11/2022 10:38 AM CDT 2 g 25 mL/hr magnesium sulfate 2 g in 50 mL bolus 2 g, at 25 mL/hr, Administer over 120 Minutes, Intravenous, ONCE, 1 dose, On Tue09/14/22 at 0815, Infuse at 1 gm/hr $ New Bag/Syringe 09/14/2022 8:35 AM CDT 2 g 25 mL/hr meropenem (Merrem) 1,000 mg in 0.9% NaCl IV 50 mL IVPB 1,000 mg, at 100 mL/hr, Intravenous, EVERY 8 HOURS, 21 doses, First dose on Tue09/10/22 at 0830, Last dose on Tue09/17/22 at 0030, Indication for restricted (Tier 2) anti-infective therapy (empiric or definitive treatment): Other, Other: psuedomonas resistant to cefepime $ New Bag/Syringe 09/17/2022 12:24 AM CDT 1,000 mg 100 mL/hr $ New Bag/Syringe 09/16/2022 3:49 PM CDT 1,000 mg 100 mL /hr $ New Bag/Syringe 09/16/2022 8:52 AM CDT 1,000 mg 100 mL /hr meropenem (Merrem) 1,000 mg in 0.9% NaCl IV 50 mL IVPB 1,000 mg, at 100 mL/hr, Intravenous, EVERY 8 HOURS, First dose on Tue09/18/22 at 1830, Until Discontinued, Indication for restricted (Tier 2) anti-infective therapy (empiric or definitive treatment): Hx of resistant ESBL or MDRO $ New Bag/Syringe 09/19/2022 9:44 AM CDT 1,000 mg 100 mL/hr $ New Bag/Syringe 09/19/2022 3:02 AM CDT 1,000 mg 100 mL /hr $ New Bag/Syringe 09/18/2022 6:09 PM CDT 1,000 mg 100 mL /hr perflutren lipid microsphere (Definity) injection 1.5 mL 1.5 mL, Intravenous, INTRA-PROCEDURE ONCE, 1 dose, On Tue08/30/22 at 1615, Shake well before using. $ Given 08/30/2022 4:07 PM CDT 1.5 mL polyethylene glycol 3350 (Miralax) packet 17 g 17 g, Enteral Tube, DAILY, First dose on Tue08/29/22 at 0900, Until Discontinued, Mix in 8 ounces of water, juice, soda, coffee or tea prior to administration $ Given 09/04/2022 9:29 AM CDT 17 g G Tube $ Given 09/02/2022 8:57 AM CDT 17 g G Tube $ Given 09/01/2022 8:43 AM CDT 17 g G Tube polyethylene glycol 3350 (Miralax) packet 17 g 17 g, Enteral Tube, 2 TIMES DAILY, First dose (after last modification) on Tue09/05/22 at 0900, Until Discontinued, Mix in 8 ounces of water, juice, soda, coffee or tea prior to administration $ Given 10/07/2022 8:56 AM CDT 17 g J Tube $ Given 10/06/2022 10:33 PM CDT 17 g G Tube $ Given 10/06/2022 9:04 AM CDT 17 g G Tube potassium - sodium phosphates (Phos-Nak) powder 1 packet 1 packet, Oral, 3 TIMES DAILY WITH MEALS, 3 doses, First dose on Tue09/01/22 at 0800, Last dose on Tue09/01/22 at 1800, Mix contents of packet in 6 to 8 ounces of water and drink, may taste better if cold Contains Phos 8 mmol, K+ 7 mEq, Na 7 mEq per packet $ Given 09/01/2022 5:38 PM CDT 1 packet G T ube $ Given 09/01/2022 11:37 AM CDT 1 packet G Tube $ Given 09/01/2022 8:44 AM CDT 1 packet potassium chloride (Klor-Con) packet 40 mEq 40 mEq, Enteral Tube, ONCE, 1 dose, On Tue08/30/22 at 1315, DISSOLVE IN 120 ML OF COLD WATER OR JUICE AND DRINK SLOWLY $ Given 08/30/2022 1:51 PM CDT 40 mEq G Tube propofol (Diprivan) injection 100 mg 100 mg, Intravenous, ONCE, 1 dose, On Tue09/08/22 at 0315 $ New Bag/Syringe 09/08/2022 3:50 AM CDT 100 mg scopolamine (Transderm-Scop) 1 patch 1 patch, Administer over 72 Hours, EVERY 72 HOURS, First dose on Tue09/22/22 at 1545, Until Discontinued, Apply patch behind the ear, do not cut patch, only 1 patch should be worn at a time and remove old patch before applying new patch.This patch may contain metal and is not compatible with MRI. Notify radiology of patch location upon arrival to MRI. Each patch contains 1.5 mg scopolamine base and is formulated to deliver 1 mg of scopolamine over 72 hours. $ Applied 11/09/2022 3:14 PM CDT 1 patch Behind Left Ear $ Applied 11/06/2022 4:39 PM CDT 1 patch Be hind Right Ear $ Applied 11/03/2022 4:28 PM CDT 1 patch Be hind Left Ear scopolamine patch placement confirmation Transdermal, 2 TIMES DAILY, First dose on Tue09/22/22 at 2100, Until Discontinued, Patient has a patch to be confirmed on transition to inpatient and 2 times daily. senna-docusate (Senokot-S) tablet 1 tablet 1 tablet, Enteral Tube, DAILY, First dose on Tue08/29/22 at 0900, Until Discontinued $ Given 09/04/2022 9:29 AM CDT 1 tablet G Tub e $ Given 09/02/2022 8:57 AM CDT 1 tablet G Tube $ Given 09/01/2022 8:44 AM CDT 1 tablet G Tube senna-docusate (Senokot-S) tablet 1 tablet 1 tablet, Enteral Tube, 2 TIMES DAILY, First dose (after last modification) on Tue09/05/22 at 0900, Until Discontinued $ Given 11/09/2022 9:30 AM CDT 1 tablet G Tube $ Given 11/08/2022 9:51 PM CDT 1 tablet G Tube $ Given 11/08/2022 9:39 AM CDT 1 tablet G Tube sodium - potassium phosphates (K Phos Neutral) tablet 2 tablet 2 tablet, Enteral Tube, EVERY 4 HOURS, 3 doses, First dose on Tue08/31/22 at 0800, Last dose on Tue08/31/22 at 1600, Contains Phos 8 mmol, K+ 1.1 mEq, Na 13 mEq per tablet $ Given 08/31/2022 3:26 PM CDT 2 tablets G Tub e $ Given 08/31/2022 12:00 PM CDT 2 tablets G Tube $ Given 08/31/2022 7:51 AM CDT 2 tablets G Tube sodium - potassium phosphates (K Phos Neutral) tablet 2 tablet 2 tablet, Oral, 3 TIMES DAILY, 3 doses, First dose on Tue09/02/22 at 0900, Last dose on Tue09/02/22 at 2100, Contains Phos 8 mmol, K+ 1.1 mEq, Na 13 mEq per tablet $ Given 09/02/2022 8:53 PM CDT 2 tablets $ Given 09/02/2022 2:39 PM CDT 2 tablets $ Given 09/02/2022 8:57 AM CDT 2 tablets sodium - potassium phosphates (K Phos Neutral) tablet 2 tablet 2 tablet, Oral, 2 TIMES DAILY, 2 doses, First dose on [place] 09/05/22 at 0900, Last dose on Tue09/05/22 at 2100, Contains Phos 8 mmol, K+ 1.1 mEq, Na 13 mEq per tablet $ Given 09/05/2022 9:25 PM CDT 2 tablets $ Given 09/05/2022 9:03 AM CDT 2 tablets G Tube sodium - potassium phosphates (K Phos Neutral) tablet 2 tablet 2 tablet, Enteral Tube, 2 TIMES DAILY, 2 doses, First dose (after last modification) on [facility] 09/09/22 at 0900, Last dose on [place] 09/09/22 at 2100, Contains Phos 8 mmol, K+ 1.1 mEq, Na 13 mEq per tablet $ Given 09/09/2022 7:35 PM CDT 2 tablets G Tube $ Given 09/09/2022 8:50 AM CDT 2 tablets G Tube sodium chloride (Inhalant) 7 % nebulizer solution 4 mL 4 mL, Inhalation, 2 TIMES DAILY, First dose (after last reorder) on [place] 08/29/22 at 0900, Until Discontinued, With Sputum Induction $ Given 09/04/2022 11:15 PM CDT 4 mL $ Given 09/04/2022 11:10 AM CDT 4 mL $ Given 09/03/2022 11:07 PM CDT 4 mL sodium chloride (Inhalant) 7 % nebulizer solution 4 mL 4 mL, Inhalation, 2 TIMES DAILY, First dose on [facility] 09/09/22 at 0000, Until Discontinued, With Sputum Induction $ Given 10/09/2022 8:21 AM CDT 4 mL $ Given 10/08/2022 8:50 PM CDT 4 mL $ Given 10/08/2022 8:42 AM CDT 4 mL sodium chloride (Inhalant) 7 % nebulizer solution 4 mL 4 mL, Inhalation, EVERY 6 HOURS, First dose (after last modification) on [facility] 10/09/22 at 1800, Until Discontinued, With Sputum Induction $ Given 10/18/2022 5:41 AM CDT 4 mL $ Given 10/17/2022 11:51 PM CDT 4 mL $ Given 10/17/2022 5:11 PM CDT 4 mL sodium phosphate 30 mmol IVPB 260 mL 30 mmol, at 43.33 mL/hr, Administer over 6 Hours, Intravenous, ONCE, 1 dose, On [place] 09/19/22 at 1100 $ New Bag/Syringe 09/19/2022 11:44 AM CDT 30 mmol 43.33 mL/hr vancomycin (Vancocin) 1,000 mg in 0.9% NaCl IV 250 mL IVPB 1,000 mg, at 250 mL/hr, Intravenous, EVERY 8 HOURS, First dose (after last modification) on [facility] 08/31/22 at 1700, Until Discontinued, Indication for anti-infective therapy: Documented infection, Site of anti-infective therapy: Blood $ New Bag/Syringe 09/02/2022 12:34 AM CDT 1,000 mg 250 mL/hr $ New Bag/Syringe 09/01/2022 4:35 PM CDT 1,000 mg 250 mL /hr $ New Bag/Syringe 09/01/2022 8:45 AM CDT 1,000 mg 250 mL /hr vancomycin (Vancocin) 1,250 mg in 250 mL NaCl IVPB Premix 1,250 mg, at 200 mL/hr, Intravenous, EVERY 8 HOURS, First dose (after last modification) on [facility] 08/28/22 at 2100, Until Discontinued, Indication for anti-infective therapy: Suspected infection, Site of anti-infective therapy: Lower Respiratory $ New Bag/Syringe 08/29/2022 5:35 AM CDT 1,250 mg 200 mL/hr $ New Bag/Syringe 08/28/2022 10:39 PM CDT 1,250 mg 200 m L/hr vancomycin (Vancocin) 1,250 mg in 250 mL NaCl IVPB Premix 1,250 mg (rounded from 1,375 mg = 25 mg/kg ? 55 kg), at 200 mL/hr, Intravenous, ONCE, 1 dose, On [facility] 09/09/22 at 0745, Indication for anti-infective therapy: Suspected infection, Site of anti-infective therapy: Lower Respiratory $ New Bag/Syringe 09/09/2022 11:10 AM CDT 1,250 mg 200 mL/hr vancomycin (Vancocin) 1,500 mg in 500 mL NaCl IVPB Premix 1,500 mg, at 333.33 mL/hr, Intravenous, ONCE, 1 dose, On 08/28/22 at 1245, Indication for anti-infective therapy: Suspected infection, Site of anti-infective therapy: Lower Respiratory $ New Bag/Syringe 08/28/2022 1:31 PM CDT 1,500 mg 333.33 mL/hr vancomycin (Vancocin) 750 mg in 0.9% NaCl IV 250 mL IVPB 750 mg, at 333.33 mL/hr, Intravenous, EVERY 8 HOURS, First dose on Tue08/30/22 at 1030, Until Discontinued, Indication for anti-infective therapy: Documented infection, Site of anti-infective therapy: Blood $ New Bag/Syringe 08/31/2022 10:01 AM CDT 750 mg 333.33 mL/hr Current Rate 08/31/2022 2:44 AM CDT 333.33 mL/h r $ New Bag/Syringe 08/31/2022 2:39 AM CDT 750 mg 333.33 mL/hr vancomycin (Vancocin) 750 mg in 0.9% NaCl IV 250 mL IVPB 750 mg, at 333.33 mL/hr, Intravenous, EVERY 8 HOURS, 5 doses, First dose (after last modification) on Tue09/02/22 at 1100, Last dose on Tue09/03/22 at 1900, Indication for anti-infective therapy: Documented infection, Site of anti-infective therapy: Blood $ New Bag/Syringe 09/03/2022 6:13 PM CDT 750 mg 333.33 mL/hr Restarted 09/03/2022 12:06 PM CDT 333.33 mL/hr $ New Bag/Syringe 09/03/2022 12:06 PM CDT 750 mg 333.3 3 mL/hr vancomycin (Vancocin) 750 mg in 0.9% NaCl IV 250 mL IVPB 750 mg, at 333.33 mL/hr, Intravenous, EVERY 8 HOURS, First dose on [place] 09/09/22 at 1800, Until Discontinued, Indication for anti-infective therapy: Documented infection, Site of anti-infective therapy: Lower Respiratory $ New Bag/Syringe 09/10/2022 2:50 AM CDT 750 mg 333.33 mL/hr $ New Bag/Syringe 09/09/2022 5:51 PM CDT 750 mg 333.33 mL/hr documented in this encounter Active and Recently Administered Medications Times are shown in CDT. Scheduled Medication Order 11/07/2022 11/08/2022 11/09/2022 artificial tears ophthalmic ointment Each Eye, EVERY 8 HOURS, First dose on 09/05/22 at 1400, Until Discontinued 0547 ($ Given - Provider: Mandi Hoffmann RN)1503 ($ Given - Provider: Cherelle Martinez RN)203 ($ Given - Provider: Mandi Hoffmann, RN) 0526 ($ Given - Provider: Mandi Hoffmann, RN)1327 (Not Administered - Provider: Kristi Villarreal RN - Reason: Patient sleeping)2149 ($ Given - Provider: Mandi Hoffmann RN) 0534 ($ Given - Provider: Mandi Hoffmann, ALFRED)1326 (Not Administered - Provider: Kristi Villarreal RN - Reason: Patient sleeping) atorvastatin (Lipitor) tablet 40 mg 40 mg, Enteral Tube, DAILY, First dose on 09/06/22 at 1230, Until Discontinued 1031 ($ Given - Provider: Cherelle Martinez RN) 0939 ($ Given - Provider: Kristi Villarreal, RN) 0931 ($ Given - Provider: Kristi Villarreal, RN) chlorhexidine (Peridex) 0.12 % oral solution 15 mL 15 mL, Mouth/Throat, 2 TIMES DAILY, First dose on 09/05/22 at 1030, Until Discontinued, Swab oral mucosa for 30 seconds. Do not brush teeth immediately after use. . WASTE DISPOSAL INSTRUCTIONS: Black Bin Disposal required. 1032 ($ Given - Provider: Cherelle Martinez RN)2035 ($ Given - Provider: Mandi Hoffmann RN) 0939 ($ Given - Provider: Kristi Villarreal, RN)2150 ($ Given - Provider: Mandi Hoffmann RN) 0931 ($ Given - Provider: Kristi Villarreal, RN) cloBAZam (Onfi) tablet 20 mg 20 mg, Enteral Tube, 2 TIMES DAILY, First dose on 08/28/22 at 2115, Until Discontinued 1031 ($ Given - Provider: Cherelle Martinez RN)2036 ($ Given - Provider: Mandi Hoffmann RN) 0939 ($ Given - Provider: Kristi Villarreal RN)2151 ($ Given - Provider: Mandi Hoffmann RN) 0930 ($ Given - Provider: Kristi Villarreal RN) divalproex sprinkle (Depakote Sprinkle) capsule 500 mg 500 mg, Enteral Tube, EVERY 6 HOURS, First dose (after last modification) on Tue08/30/22 at 1200, Until Discontinued, Do not crush or chew sprinkle beads. 0044 ($ Given - Provider: Mandi Hoffmann RN)0547 ($ Given - Provider: Mandi Hoffmann RN)1231 ($ Given - Provider: Cherelle Martinez RN)1843 ($ Given - Provider: Cherelle Martinez RN) 0004 ($ Given - Provider: Mandi Hoffmann RN)0525 ($ Given - Provider: Mandi Hoffmann RN)1159 ($ Given - Provider: Kristi Villarreal RN)1814 ($ Given - Provider: Kristi Villarreal RN) 0000 ($ Given - Provider: Mandi Hoffmann RN)0534 ($ Given - Provider: Mandi Hoffmann RN)1325 ($ Given - Provider: Kristi Villarreal, ALFRED) enoxaparin (Lovenox) injection 40 mg 40 mg, Subcutaneous, DAILY, First dose on Tue08/28/22 at 1915, Until Discontinued, (for prefilled syringes) do not expel air bubble from the syringe prior to the injection Remind Patient to not rub injection site. Could cause hematoma. 1032 ($ Given - Provider: Cherelle Martinez RN) 0939 ($ Given - Provider: Kristi Villarreal RN) 0931 ($ Given - Provider: Kristi Villarreal, RN) guaiFENesin (Robitussin) solution 10 mL 10 mL, Enteral Tube, EVERY 6 HOURS, First dose (after last modification) on Tue09/08/22 at 1800, Until Discontinued 0044 ($ Given - Provider: Mandi Hoffmann RN)0547 ($ Given - Provider: Mandi Hoffmann RN)1231 ($ Given - Provider: Cherelle Martinez RN)1843 ($ Given - Provider: Cherelle Martinez RN) 0004 ($ Given - Provider: Mandi Hoffmann RN)0526 ($ Given - Provider: Mandi Hoffmann RN)1159 ($ Given - Provider: Krisit Villarreal RN)1814 ($ Given - Provider: Kristi Villarreal RN) 0000 ($ Given - Provider: Mandi Hoffmann RN)0534 ($ Given - Provider: Mandi Hoffmann RN)1325 ($ Given - Provider: Kristi Villarreal RN) lacosamide (Vimpat) tablet 200 mg 200 mg, Enteral Tube, 2 TIMES DAILY, First dose on 08/28/22 at 2130, Until Discontinued 1031 ($ Given - Provider: Cherelle Martinez RN)203 ($ Given - Provider: Mandi Hoffmann RN) 0939 ($ Given - Provider: Kristi Villarreal RN)2151 ($ Given - Provider: Mandi Hoffmann RN) 0931 (Not Administered - Provider: Kristi Villarreal RN - Reason: Medication not available) levalbuterol (Xopenex) nebulizer solution 1.25 mg 1.25 mg, Inhalation, EVERY 6 HOURS, First dose (after last modification) on 10/09/22 at 1800, Until Discontinued 0607 ($ Given - Provider: Eric Lira)1007 ($ Given - Provider: Hermes Maynard RCP) 0055 ($ Given - Provider: Dimple Guerrero RCP)0516 ($ Given - Provider: Dimple Guerrero RCP)0732 (Not Administered - Provider: Kristi Villarreal RN - Reason: Patient sleeping)1233 ($ Given - Provider: Lupillo Bullock RCP)1810 ($ Given - Provider: Lupillo Bullock RCP) 0043 ($ Given - Provider: Melany Weir RCP)0617 ($ Given - Provider: Melany Weir RCP)1228 ($ Given - Provider: Luplilo Bullock RCP) levETIRAcetam (Keppra) tablet 2,000 mg 2,000 mg, Enteral Tube, 2 TIMES DAILY, First dose on 08/28/22 at 2115, Until Discontinued, Do not crush or chew because of TASTE only. 1031 ($ Given - Provider: Cherelle Martinez RN)203 ($ Given - Provider: Mandi Hoffmann RN) 0939 ($ Given - Provider: Kristi Villarreal, RN)2150 ($ Given - Provider: Mandi Hoffmann RN) 0930 ($ Given - Provider: Kristi Villarreal, RN) scopolamine (Transderm-Scop) 1 patch(Linked Group 1) 1 patch, Administer over 72 Hours, EVERY 72 HOURS, First dose on Tue09/22/22 at 1545, Until Discontinued, Apply patch behind the ear, do not cut patch, only 1 patch should be worn at a time and remove old patch before applying new patch.This patch may contain metal and is not compatible with MRI. Notify radiology of patch location upon arrival to MRI. Each patch contains 1.5 mg scopolamine base and is formulated to deliver 1 mg of scopolamine over 72 hours. 1513 (Removed - Provider: Naresh Thakur, Nurse Barrel Burner)1514 ($ Applied - Provider: Naresh Thakur, Nurse Barrel Burner)1640 (Due: Removed - Provider: Generic, Auto Release - Comment: Time automatically adjusted from order being discontinued) scopolamine patch placement confirmation(Linked Group 1) Transdermal, 2 TIMES DAILY, First dose on Tue09/22/22 at 2100, Until Discontinued, Patient has a patch to be confirmed on transition to inpatient and 2 times daily. 1032 (*Reviewed - Provider: Cherelle Martinez RN - Comment: right ear)2036 (*Reviewed - Provider: Mandi Hoffmann RN) 0940 (*Reviewed - Provider: Kristi Villarreal, RN)215 (*Reviewed - Provider: Mandi Hoffmann RN) 0932 (*Reviewed - Provider: Kristi Villarreal, RN) senna-docusate (Senokot-S) tablet 1 tablet 1 tablet, Enteral Tube, 2 TIMES DAILY, First dose (after last modification) on Tue09/05/22 at 0900, Until Discontinued 1031 ($ Given - Provider: Cherelle Martinez RN)2035 ($ Given - Provider: Mandi Hoffmann RN) 0939 ($ Given - Provider: Kristi Villarreal, RN)215 ($ Given - Provider: Mandi Hoffmann RN) 0930 ($ Given - Provider: Kristi Villarreal, RN) PRN Medication Order 11/07/2022 11/08/2022 11/09/2022 acetaminophen (Tylenol) tablet 650 mg 650 mg, Enteral Tube, EVERY 4 HOURS PRN, Moderate Pain, Mild Pain, Starting on Tue09/27/22 at 0851, Until Tue11/09/22 at 1746, Patient preference for lesser PRN pain meds may be honored when the patient requests a less strong medication, a lower dose, or a less intrusive route of administration when the lesser drug, dose and route have been ordered for the patient. This patient request must be documented in the MAR. dextrose 10 % IV bolus(Linked Group 2) 12.5 g, at 468.75 mL/hr, Intravenous, PRN, Other, Bedside Glucose less than 70 mg/dL -If NOT able to eat and/or NPO and with IV Access, Starting on Tue09/10/22 at 1115, Until Tue11/09/22 at 1746, If NOT able to eat and/or NPO [...] EVENT. dextrose 10 % IV bolus(Linked Group 2) 25 g, at 937.5 mL/hr, Intravenous, PRN, Other, Bedside Glucose less than 70 mg/dL -If NOT able to eat and/or NPO and with IV Access, Starting on Tue09/10/22 at 1115, Until Tue11/09/22 at 1746, If NOT able to eat and/or NPO and with IV Access: For Bedside Glucose 54-69 mg/dL - give 12.5 g Dextrose IV STAT For Bedside Glucose LESS than 54 mg/dl - verify with a second Bedside Glucose (from a different site) and give 25 g Dextrose IV STAT Re-check and Re-treat blood glucose EVERY - 10-25 minutes until blood glucose GREATER than or equal to 80 mg/dl. - If repeat bedside glucose 54-79 give 12.5 g Dextrose IV STAT NOTIFY PROVIDER OF HYPOGLYCEMIC EVENT. glucagon (Glucagen) injection 1 mg 1 mg, Subcutaneous, PRN, Bedside Glucose less than 70 mg/dL - If NOT able to eat and/or NPO and withOUT IV Access, Starting on Tue09/10/22 at 1115, Until Tue11/09/22 at 1746, If NOT able to eat and/or NPO and NO IV Access: For Bedside glucose 54-69 mg/dL - Give 1 mg SQ For Bedside Glucose LESS than 54 mg/dl - verify with a second bedside glucose (from a different site) - Give 1 mg SQ Re-check and Re-treat blood glucose EVERY 10-25 [...] does not have swallowing difficulties, Starting on Tue09/10/22 at 1115, Until Tue11/09/22 at 1746, If able to eat and can swallow [...] does not have swallowing difficulties, Starting on Tue09/10/22 at 1115, Until Tue11/09/22 at 1746, If able to eat and is better [...] does not have swallowing difficulties, Starting on Tue09/10/22 at 1115, Until Tue11/09/22 at 1746, If able to eat and does not [...] for choices). NOTIFY PROVIDER OF HYPOGLYCEMIC EVENT. Linked Groups Order Group 1: scopolamine (Transderm-Scop) 1 patchJump to med 1 patch, Administer over 72 Hours, EVERY 72 HOURS, First dose on Tue09/22/22 at 1545, Until Discontinued, Apply patch behind the ear, do not cut patch, only 1 patch should be worn at a time and remove old patch before applying new patch.This patch may contain metal and is not compatible with MRI. Notify radiology of patch location upon arrival to MRI. Each patch contains 1.5 mg scopolamine base and is formulated to deliver 1 mg of scopolamine over 72 hours. And scopolamine patch placement confirmationJump to med Transdermal, 2 TIMES DAILY, First dose on Tue09/22/22 at 2100, Until Discontinued, Patient has a patch to be confirmed on transition to inpatient and 2 times daily. Group 2: dextrose 10 % IV bolusJump to med 12.5 g, at 468.75 mL/hr, Intravenous, PRN, Other, Bedside Glucose less than 70 mg/dL -If NOT able to eat and/or NPO and with IV Access, Starting on Tue09/10/22 at 1115, Until Tue11/09/22 at 1746, If NOT able to eat and/or NPO [...] NPO and with IV Access, Starting on Tue09/10/22 at 1115, Until Tue11/09/22 at 1746, If NOT able to eat and/or NPO and with IV Access: For Bedside Glucose 54-69 mg/dL - give 12.5 g Dextrose IV STAT For Bedside Glucose LESS than 54 mg/dl - verify with a second Bedside Glucose (from a different site) and give 25 g Dextrose IV STAT Re-check and Re-treat blood glucose EVERY - 10-25 minutes until blood glucose GREATER than or equal to 80 mg/dl. - If repeat bedside glucose 54- 79 give 12.5 g Dextrose IV STAT NOTIFY PROVIDER OF HYPOGLYCEMIC EVENT. 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
--- OUTSIDE RECORDS SUMMARY | 2024-06-08 05:35 | XMS_ITS | Encounter Summary ---
Author Organization [facility] Address [address] [facility] [place] [address] Care Team Providers Care Artistic Director Name Role Phone Elizabeth Sullivan RN Unavailable [phone] Joyce Luevano LIBRARIAN SCHOOL-DINING ROOM ATTENDANT Primary Care Provider [phone] Reason for Visit * Reason Comments Altered mental status PT BIBEMS, Pt [facility], Receiving facility did not have the appropriate equipment. Diverted to [facility], Called vita and vita stated they would recieve back but EMS already in ED, PT not in accute distress. VSS on 4L via trach collar which is base line. Encounter Details Date Type Department Care Team (Late st Contact Info) Description 08/20/2022 1:42 PM CDT - 08/20/2022 2:13 PM CDT Emergency [facility] [address] [place] [address] [place] [id number] [place] [address] Tracheostomy dependent (HCC) Discharge Disposition: Cycle Manager Acute Care Social History Tobacco Use Types Packs/Day Years Used Date Smoking Tobacco: Former Cigarettes 1 15 Smokeless Tobacco: Never Alcohol Use Standard Drinks/Week Comments No 0 (1 standard drink = 0.6 oz pur e alcohol) last drink 2015 AUDIT-C Answer Date Recorded Q1: How often do you have a drink containing alcohol? Never 07/05/2022 Q2: How many drinks containi ng alcohol do you have on a typical day when you are drinking? Patient does not drink Q3: How often do you have si x or more drinks on one occasion? Never 07/05/2022 Overall Financial Resource Strain (CARDIA) Answe r Date Recorded How hard is it for you to pa y for the very basics like food, housing, medical care, and heating? Patient declined 07/05/2022 [facility] of Occupat ional Health - Occupational Stress Questionnaire Answer Date Recorded Do you feel stress - tense, restless, nervous, or anxious, or unable to sleep at night because your mind is troubled all the time - these days? Not at all 07/05/2022 Hunger Vital Sign Answer Date Recorded Within the past 12 months, y ou worried that your food would run out before you got the money to buy more. Never true 07/05/19 23 Within the past 12 months, t he food you bought just didn't last and you didn't have money to get more. Never true 07/05/2022 PRAPARE - Transportation Answer Date Re corded In the past 12 months, has l ack of transportation kept you from medical appointments or from getting medications? No 10/2022 In the past 12 months, has l ack of transportation kept you from meetings, work, or from getting things needed for daily living? No 07/05/2022 Housing Stability Vital Sign Answer Vinay e Recorded In the last 12 months, was t here a time when you were not able to pay the mortgage or rent on time? No 07/05/2022 In the last 12 months, how many places have you lived? 1 07/05/2022 In the last 12 months, was t here a time when you did not have a steady place to sleep or slept in a longterm (including now)? No 07/05/2022 Sex and Gender Information Value Date Recorded Sex Assigned at Not on file Gender Identity Not on file Sexual Orientation Not on file documented as of this encounter Last Filed Vital Signs Vital Sign Reading Time Taken Comments Blood Pressure 112/75 08/20/2022 1:46 PM CDT Pulse 99 08/20/2022 1:46 PM CDT Temperature 36.7 ??C (98.1 ??F) 08/20/2022 1:46 PM CD T Respiratory Rate 18 08/20/2022 1:46 PM CDT Oxygen Saturation - - Inhaled Oxygen Concentration - - Weight 63.5 kg (140 lb) 08/20/2022 1:46 PM CDT Height 182.9 cm (6') 08/20/2022 1:46 PM CDT Body Mass Index 18.99 08/20/2022 1:46 PM CDT documented in this encounter Functional Status Functional Status Response Date of Assess ment Is person deaf or have serious hearing difficult y? No 07/05/2022 Is person blind or have serious difficulty seein g? No 07/05/2022 Does person have serious dif ficulty walking/climbing stairs? Yes 07/05/2022 Does person have difficulty dressing/bathing? Ye s 07/05/2022 Does person have difficulty doing errands alone? Yes 07/05/2022 Cognitive Status Response Date of Assessm ent Does person have difficulty concentrating/remembering/making decisions? Yes 07/05/2022 documented as of this encounter Medications at Time of Discharge Medication Sig Dispensed Refills Start Date End Date folic acid (Folvite) 1 MG tablet 1 (one) tablet by Enteral Tube route once daily 04/01/2022 thiamine (Vitamin B-1) 100 MG tablet 1 (one) tablet by Enteral Tube route once daily 04/01/2022 acetaminophen (Tylenol) 500 MG tablet 1 (one) tablet by Enteral Tube route every 6 hours as needed Maximum allowable Acetaminophen amount = 4 Grams (4000 mg) / 24 hours. 06/15/2022 01/14/2023 artificial tears ophthalmic solution Instill 1 (one) drop into both eyes 3 times daily as needed 03/31/2022 11/09/2022 aspirin (Aspirin) 81 MG chew tablet 1 (one) tablet by Enteral Tube route once daily for 30 days 30 tablet 07/21/2022 08/20/2022 atorvastatin (Lipitor) 40 MG tablet 1 (one) tablet by Enteral Tube route once daily 04/01/2022 02/28/2023 carboxymethylcellulo se sodium (Refresh;Celluvisc) 1 % ophthalmic solution 1 (one) drop by Ophthalmic route once daily as needed 09/27/2022 cloBAZam (Onfi) 20 MG tablet 1 (one) tablet by Enteral Tube route 2 times daily 05/14/2022 11/11/2022 divalproex sprinkle (Depakote Sprinkle) 125 MG capsule 4 (four) capsules by Enteral Tube route Every 6 Hours (03,09,15,21) for 30 days 480 capsule 07/21/2022 08/20/2022 docusate sodium (Colace) 150 MG/15ML solution Take 15 mL by mouth once daily as needed for Constipation 04/07/2022 01/14/2023 fluticasone propionate (Flonase) 50 MCG/ACT nasal spray [place] 1 (one) spray into each nostril once daily 06/08/2022 12/16/2022 lacosamide (Vimpat) 200 MG tablet 1 (one) [...] days 120 tablet 5 02/15/2019 01/14/2023 levETIRAcetam (KEPPRA) 750 MG tabletIndications:Pa rtial 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, intractable, without status epilepticus (HCC) Take 3 tablets by mouth 2 times daily for 30 days 180 tablet 06/10/2018 01/14/2023 loratadine (Claritin) 10 MG tablet Take 1 (one) tablet by mouth once daily 06/07/2022 09/27/2022 midazolam (Nayzilam) 5 MG/0.1ML nasal spray [place] 0.1 mL into the nose as needed for Seizures 1 Each 5 06/21/2022 11/11/2022 oxybutynin (Ditropan) 5 MG tablet 1 (one) tablet by Enteral Tube route 2 times daily 30 tablet 07/21/2022 09/27/2022 polyethylene glycol 3350 (Miralax) 17 g packet 17 (seventeen) g by Enteral Tube route once daily for 30 days 30 packet 07/21/2022 08/20/2022 tamsulosin (Flomax) 0.4 MG capsule Take 1 (one) capsule by mouth once daily At the same time every day after a meal. Please make sure it is via enteral tube. 06/15/2022 01/14/2023 documented as of this encounter Progress Notes * Tamie Cavanaugh MSW - 08/20/2022 1:52 PM CDT Facility Transfer Note Level of Care: Actual level of care at discharge: Cycle Manager Acute Care (LTAC) Facility Name: (include name of person confirming admission): Actual discharge provider: [facility] Escal[facility] Made Aware of Special Needs (if applicable): n/a RN Call Report to:[phone] Fax D/C Orders to:did not request Transportation (company and number): [employer] [phone] Certificate of Medical Necessity rationale: trach, non communicative, max assist Date/time of transfer: 08/20/2022 2pm Accepting MD and contact #: MD Alonzo Completed and Signed [id number] (if applicable): n/a Family/Other Notified of Transfer (name/phone): [facility] in contact with family Authorization Skilled Care: Authorization for Transportation: Verified Qualifying Stay(Skilled Only): NOT APPLICABLE Comments: ..Facesheet, CMN, full transfer printout and number for report to ED RN. No further needsat time of transfer. Pt was to transfer from [facility] to [facility]--[facility] did not have all required DME--at this time pt is returning to [facility]. Name/Phone number: CLARITA Knight ED Natural Sciences Manager [phone] documented in this encounter ED Notes * Trista Layne RN - 08/20/2022 2:00 PM CDT PT transported by same ems Crew, Pt suctioned for comfort before transport. Small amt of flem. * Elmo Ozuna MD - 08/20/2022 1:43 PM CDT ED Attending Note History of Present Illness: Bi Tabor is a 62 year old male presenting to the ED c/o trach dependence individual who was at [facility] for vent weaning. Patient subsequently has been vent we did and was accepted to a nursing facility today but they did not have the required equipment. The patient was post be directedback to [facility] but there was a confusion by the nursing staff and the patient was diverted here. There is no change per EMS of any other active for this patient and the patient is nonverbal and unable to provide any history. Past Medical History: Diagnosis Date ??? CVA [...] the Last Year: No Review of Systems: ROS unable to obtain secondary to non verbal status No data found. Exam: General: Lying in bed, Elderly, Tracheostomy site in place. Trach collar HEENT: PERRL, EOMI, MMM, No JVD, OG/ET Tube in place Lungs: CTAB no w/r/r Heart: RRR no m/r/g Abdomen: S/NT/ND/BS x4, Extremity: No Edema, Pulses 2+ Skin: Warm and dry. No rashes or bruising noted. Neurological: Trach collar Data Results: Labs Reviewed - No data to display No orders to display Medical Decision Making: No orders of the defined types were placed in this encounter. Medications - No data to display Summary of Stay: Briefly this is a 62-year-old male who was supposed to be diverted back to [facility] but came to [facility]. Arrival here we were able to contact [facility] and the patient was accepted back to his room at 3:[address] Rosado therefore the Impella was filled out and the patient was discharged back to [facility] Clinical Impression: 1. Tracheostomy dependent (CMS/HCC) Disposition: Patient was discharged back to [facility] Elmo Ozuna MD Fire Information Officer of Emergency Lens Coating TechnicianFire Information Officer of Pulmonary & Critical Care Medicine [facility] * Trista Layne RN - 08/20/2022 1:43 PM CDT PT Seen by ED Attending, no emergent condition at this time vita contacted. Will accept PT back,Called RPT to [facility] nurse, GHAZAL Completed. PT at current Baseline, Pt suctioned for comfort before transport. PT nonverbal at baseline, no following commands. * Wood Roa RN - 08/20/2022 1:42 PM CDT Bed: [facility] Expected date: Expected time: Means of arrival: Comments: [id number] trach patient from [facility] documented in this encounter Plan of Treatment Upcoming Encounters Date Type Department Care Team (Late st Contact Info) Description 12/05/2024 1:00 PM CDT Office Visit [facility] - Neurology [address] [place] [address], [facility] [place] [id number] Sean Raymundo, [address] [place] [phone] documented as of this encounter Visit Diagnoses Diagnosis Tracheostomy dependent (HCC) Tracheostomy status documented in this encounter Additional Health Concerns Infection Onset Date Last Indicated Resolved Time MRSA Comment: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
--- OUTSIDE RECORDS SUMMARY | 2024-06-08 05:35 | XMS_ITS | Encounter Summary ---
Author Organization [facility] Health Address [address] [facility] [place] [address] Care Team Providers Care Bolt Sawyer Name Role Phone Elizabeth Sullivan RN Unavailable [phone] Joyce Luevano TOOLING INSPECTOR-WANT AD SUPERVISOR Primary Care Provider [phone] Reason for Visit * Reason Onset Date Comments Results 07/27/2022 Encounter Details Date Type Department Care Team (Late st Contact Info) Description 07/27/2022 Telephone [facility] [address] [place] [address] Yana Rm APRN-WANT AD SUPERVISOR [address] [place] [address] Results Social History Tobacco Use Types Packs/Day Years [...] medical care, and heating? Patient declined 07/05/2022 [facility] [place] of Occupat ional Health - Occupational Stress [...] slept in a alf (including now)? No 07/05/2022 Sex and Gender [...] Yes 07/05/2022 documented as of this encounter Miscellaneous Notes * Telephone Encounter - Michaela Bass RN - 07/27/2022 9:47 AM CST Images from the original note were not included. Yana Rm, KOLTON-Michaela Snow, RN Caller: Unspecified (4 days ago, ??4:08 PM) The facility said they were checking labs on him today. Can we just check if they have results in next few days. Thanks! -Yana Called an spoke with Lucie SIMON at [facility] and did have labs drawn this morning. Will fax results over to us. 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
--- OUTSIDE RECORDS SUMMARY | 2024-06-08 05:35 | XMS_ITS | Encounter Summary ---
Author Organization [facility] Health Address [address] [facility] [place] [address] Care Team Providers Care Pca Name Role Phone Elizabeth Sullivan RN Unavailable [phone] Joyce Luevano ENTRY ENGINEER-SPINNING BATH PATROLLER Primary Care Provider [phone] Reason for Visit * Reason Onset Date Comments Order 07/23/2022 Encounter Details Date Type Department Care Team (Late st Contact Info) Description 07/23/2022 Telephone [facility] [address] [facility], [place] [address] Sean Raymundo DO [address] [place] [address] Order Social History Tobacco Use Types Packs/Day [...] medical care, and heating? Patient declined 07/05/2022 [facility] [place] of Occupat ional Health - Occupational Stress [...] slept in a custodial (including now)? No 07/05/2022 Sex and Gender [...] encounter Miscellaneous Notes * Telephone Encounter - Gloria Ricketts MA - 07/23/2022 4:08 PM CST Todd calling wanting to know if the patient can have request about divalproex clinton wanting to know if it can change patient currently in [facility] [address] and wanting to switch medication liquid so it wouldn't clog up his feeding tube. The patient family is okay with the switch wanting a second opinion from Dr. Raymundo before doing so. Directly callback # [phone] TRICAL LINE SPLICER documented in this encounter Plan of Treatment Upcoming Encounters Date Type Department Care Team (Late st Contact Info) Description 12/05/2024 1:00 PM CDT Office Visit [facility] - Neurology [address] [place] [address], [place] [address] Sean Raymundo, DO [address] [place] [address] [place] [address] documented as of this encounter Visit Diagnoses Not on filedocumented in this encounter Additional Health Concerns Infection Onset Date Last Indicated Resolved Time 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
--- OUTSIDE RECORDS SUMMARY | 2024-06-08 05:35 | XMS_ITS | Encounter Summary ---
Author Organization [facility] Health Address [address] [facility] [place] [address] Care Team Providers Care Rug Layer Name Role Phone Elizabeth Sullivan RN Unavailable [phone] Joyce Luevano HYPERION ADMINISTRATOR-SAP HANA ARCHITECT Primary Care Provider [phone] Reason for Visit * Reason Onset Date Comments Concerns 07/23/2022 Encounter Details Date Type Department Care Team (Late st Contact Info) Description 07/23/2022 Telephone [facility] [address] [place] [address] Yana Rm APRN-SAP HANA ARCHITECT [address] [place] [address] Concerns Social History Tobacco Use Types Packs/Day Years [...] medical care, and heating? Patient declined 07/05/2022 [facility] [place] of Occupat ional Health - Occupational Stress [...] slept in a retirement (including now)? No 07/05/2022 Sex and Gender [...] Telephone Encounter - Michaela Bass, ALFRED - 07/23/2022 2:48 PM CST Left message for Lucie SIMON at [facility] [address] regarding the medications that the patient is getting in the facility namely the depakote sprinkles. Will await a return call. 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
--- OUTSIDE RECORDS SUMMARY | 2024-06-08 05:35 | XMS_ITS | Encounter Summary ---
Author Organization [facility] Health Address [address] [place] [place] [address] Care Team Providers Care Steam Shovel Engineer Name Role Phone Elizabeth Sullivan RN Unavailable [phone] Joyce Luevano MANAGER READING-FARM SPECIALIST Primary Care Provider [phone] Reason for Visit * Reason Onset Date Comments Medication Management 07/26/2022 Care Management 07/26/2022 Encounter Details Date Type Department Care Team (Late st Contact Info) Description 07/26/2022 Telephone [facility] [address] [facility], [place] [address] Sean Raymundo, DO [address] [place] [address] Medication Management; Care Management Social History Tobacco Use Types [...] medical care, and heating? Patient declined 07/05/2022 [facility] of Occupat ional Health - Occupational Stress [...] encounter Miscellaneous Notes * Telephone Encounter - Adriel Mosley Reinaldo - 07/26/2022 2:51 PM CST Patient sister called stating that she is at [facility] on [facility] with Bi and the Nurses there telling her that the Doctor is going to change one of his seizure medication because they don`twant to deal with the Depakote Sprinkle. She feels as though they should not be tampering with his seizures medications and want us to confirm that they should not be doing so. Please advise Thanks Ephraim ENT TURNER documented in this encounter Plan of Treatment Upcoming Encounters Date Type Department Care Team (Late st Contact Info) Description 12/05/2024 1:00 PM CDT Office Visit [facility] - Neurology [address] [place] [address], [facility] [place] [address] Sean Raymundo, DO [address] [place] [address] [place] [address] documented as of this encounter Visit Diagnoses Not on filedocumented in this encounter Additional Health Concerns Infection Onset Date Last Indicated Resolved Time 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
--- OUTSIDE RECORDS SUMMARY | 2024-06-08 05:35 | XMS_ITS | Encounter Summary ---
Author Organization [facility] Health Address [address] [place] [address] Care Team Providers Care Landing Scaler Name Role Phone Elizabeth Sullivan RN Unavailable [phone] Joyce Luevano GROUP THERAPIST-COMPOSITE ASSEMBLER Primary Care Provider [phone] Reason for Visit * Reason Onset Date Comments Medication Management 07/23/2022 Encounter Details Date Type Department Care Team (Late st Contact Info) Description 07/23/2022 Telephone [facility] [address] [place] [address] Yana Rm APRN-CNP [address] [place] [address] Medication Management Social History Tobacco Use Types Packs/Day [...] medical care, and heating? Patient declined 07/05/2022 [facility] [place] of Occupat ional Health - Occupational Stress [...] slept in a intermediate (including now)? No 07/05/2022 Sex and Gender [...] encounter Miscellaneous Notes * Telephone Encounter - Yana Rm APRN-CNP - 07/23/2022 4:27 PM TECHNICAL WRITING LEAD/MGR Received message from patients Adriane hanna (POA) concern that patient's divalproex sprinkles (previously on 500mg [id number]) Was switched to valproic acid liquid formulary. Spoke to Todd at [facility], Dr. Holm switched patient to valproic acid (liquid) 500mg Q6 hours with plans to repeat level next week. Discussed with gustavo hanna with change in formulary with close monitoring of level. Will wait for results of repeat level next week. ELANA Cullen NICAL WRITING LEAD/MGR documented in this encounter Plan of Treatment Upcoming Encounters Date Type Department Care Team (Late st Contact Info) Description 12/05/2024 1:00 PM CDT Office Visit 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
--- OUTSIDE RECORDS SUMMARY | 2024-06-08 05:35 | XMS_ITS | Encounter Summary ---
Author Organization [facility] Health Address [address] [place] [address] Care Team Providers Care Bottling Supervisor Name Role Phone Elizabeth Sullivan RN Unavailable [phone] Joyce Luevano LOGISTICS LOSS PREVENTION MANAGER-DIETETIC ASSISTANT Primary Care Provider [phone] Reason for Referral * Radiology Services (Routine) - Closed Specialty Diagnoses / Procedures Referred By Contac t Referred To Contact CT Scan Diagnoses Opacity of lung on imaging study Procedures CT CHEST WO CONTRAST Will Butler MD [address] [place] [address] [place] [address] [facility] [address] [place] [phone] Referral ID Status Reason Start Date Expiration Date Visits Re quested Visits Authorized [id number] Closed 08/16/2022 08/16/2023 1 1 Reason for Visit * Radiology Services (Routine) - Closed Specialty Diagnoses / Procedures Referred By Anabella dan Referred To Contact CT Scan Diagnoses Opacity of lung on imaging study Procedures CT CHEST WO CONTRAST Will Butler MD [address] [place] [address] [address] [place] [address] [facility] [address] [place] [address] Referral ID Status Reason Start Date Expiration Date Visits Re quested Visits Authorized [id number] Closed 08/16/2022 08/16/2023 1 1 Encounter Details Date Type Department Care Team (Latest Contact Info) Description 08/16/2022 1:00 PM CDT - 08/16/2022 11:59 PM CDT Hospital Encounter [facility] [address] [place] [phone] Will Butler MD [address] [facility] [address] [place] [address] Discharge Disposition: Home or Self Care Social [...] medical care, and heating? Patient declined 07/05/2022 [facility] [place] of Occupat ional Health - Occupational [...] slept in a fdc (including now)? No 07/05/2022 Sex and Gender [...] fluticasone propionate (Flonase) 50 MCG/ACT nasal spray [place] 1 (one) spray into each nostril once [...] 09/27/2022 midazolam (Nayzilam) 5 MG/0.1ML nasal spray [place] 0.1 mL into the nose as needed [...] 06/15/2022 01/14/2023 documented as of this encounter Plan of Treatment Upcoming Encounters Date Type Department Care Team (Late st Contact Info) Description 12/05/2024 1:00 PM CDT Office Visit [facility] - Neurology [address] [place] [address], [facility] [place] [phone] Sean Raymundo, [address] [place] [address] [place] [phone] documented as of this encounter Procedures Procedure Name Priority Date/Time Associated Diagnosis Comments CT CHEST WO CONTRAST Routine 08/16/2022 2:29 PM CDT Opacity of lung on imaging study documented in this encounter Results * CT CHEST WO CONTRAST (08/16/2022 2:29 [...] lobe. Report dictated by Flavio Stover MD (resident assistant). I, Bebo Kuo MD have personally [...] lobe. Report dictated by Flavio Stover MD (resident assistant). I, Bebo Kuo MD have personally reviewed and interpreted this examination/study. 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
--- OUTSIDE RECORDS SUMMARY | 2024-06-08 05:36 | XMS_ITS | Encounter Summary ---
Author Organization [facility] Health Address [address] [place] [address] Care Team Providers Care Hat Cleaner Name Role Phone Elizabeth Sullivan RN Unavailable [phone] Joyce Luevano SOFTBALL PLAYER-MACHINE GUNNER Primary Care Provider [phone] Reason for Visit * Reason Comments Shortness of Breath Pt presents to emerg ency department via EMS for complaints of shortness of breath. Pt is from [facility] and was found in bed with anO2 sat in the low 80s. Staff states that they placed pt on 2L with no reaction. EMS was called. Upon arrival EMS placed pt on NR at 15L. Pt placed on monitor and called light was placed in reach. * Auth/Cert (Routine) Specialty Diagnoses / Procedures Referred By Anabella t Referred To Contact Referral ID Status Reason Start Date Expiration Date Visits Re quested Visits Authorized [id number] 1 1 Encounter Details Date Type Department Care Team (Late st Contact Info) Description 06/27/2022 9:22 PM AUTOMOTIVE PAINT TECHNICIAN - 07/21/2022 5:19 PM AUTOMOTIVE PAINT TECHNICIAN Hospital Encounter [facility] ICU [address] [place] [id number] Arthur Marinelli MD [address] [place] [id number] Bhavesh Easley MD [address] DIV [place] [address] Cory Cali MD [address] [facility] 2L DIV OF [facility] [place] [address] Artur Mcgraw MD [address] [place] [address] Randy Diaz MD [address] [place] [address] Ramya Witt MD [address] [facility] [place] [address] Tolu Leach MD [address] [facility] DIV OF PULMONARY/[place] [address] Artemio Abarca MD [address] [facility] 2L DIV OF PULMONARY[place] [address] Juan Diego Garcia MD [address] [facility] 2L DIV OF PULMONARY/[place] [address] Emergency Medicine Discharge Disposition: Director Of Enterprise Strategy Acute Care Social History Tobacco Use Types [...] medical care, and heating? Patient declined 07/05/2022 [facility] [place] [facility] Occupat ional Health - Occupational Stress [...] Sign Reading Time Taken Comments Blood Pressure 130/81 07/21/2022 4:00 PM AUTOMOTIVE PAINT TECHNICIAN Pulse 98 07/21/2022 4:00 PM AUTOMOTIVE PAINT TECHNICIAN Temperature 37.4 ??C (99.3 ??F) 07/21/2022 11:[address] Respiratory Rate 24 07/21/2022 4:00 PM AUTOMOTIVE PAINT TECHNICIAN Oxygen Saturation 100% 07/21/2022 4:00 PM AUTOMOTIVE PAINT TECHNICIAN Inhaled Oxygen Concentration 30% 07/21/2022 3 :57 PM AUTOMOTIVE PAINT TECHNICIAN Weight 66 kg (145 lb 8.1 oz) 07/20/2022 4:00 AM AUTOMOTIVE PAINT TECHNICIAN Height 185.4 cm (6' 1 ) 06/27/2022 9:40 PM AUTOMOTIVE PAINT TECHNICIAN Body Mass Index 19.2 06/27/2022 9:40 PM AUTOMOTIVE PAINT TECHNICIAN documented in this encounter Functional Status Functional [...] Yes 07/05/2022 documented as of this encounter Discharge Summaries * Raisa Vee MD - 07/21/2022 3:15 PM CST Physician Discharge Summary Patient ID: Mojgan Tabor [id number] 62 year old 1960 Admit date: 06/27/2022 Discharge date and time: 07/21/2022 Admitting Physician: Cory Cali MD Discharge Physician: Raisa Vee MD Present on Admission: ??? Leukocytosis, unspecified type ??? Tachycardia ??? Hypoxia ??? Acute respiratory failure with hypoxia (CMS/HCC) ??? Pneumonia of right lower lobe due to infectious organism ??? History of stroke ??? Epilepsy, unspecified, not intractable, without status epilepticus (CMS/HCC) ??? Hemiplegia and 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-dominant side (CMS/HCC) ??? Muscle weakness (generalized) ??? PAD (peripheral artery disease) (CMS/HCC) ??? Sepsis without acute organ dysfunction (CMS/HCC) ??? Protein-calorie malnutrition, unspecified severity (CMS/HCC) ??? Aspiration into airway ??? Atelectasis, right ??? Contrast-induced nephropathy ??? Acute encephalopathy ??? Zenker diverticula Discharge Diagnoses: Seizure Disorder and Encephalopathy Admission Condition: poor Discharged Condition: good Consults: ENT Hospital Course: Mojgan Tabor is a 62 year old male??w/ PMHx significant for CVA with residual L sided defects, history of seizure disorder, dementia, dysphagia with recurrent aspiration (PEG-dependent), Zenker diverticulum, hypertension, BPH, PAD s/p L AKA d/t non-healing foot wound (02/2022), who [facility] presented [facility] on [facility]28 with complaints of hypoxia. The patient is a shelter resident at [facility]. Imaging in ED showed likely aspiration pneumonia, for which he was started on antibiotics. ENT was consulted for possible surgical intervention with his Zenker diverticulum. On 07/02 the patient was noted to have R hemithorax opacification with mediastinal shift. Pulmonary Medicine was consulted on 07/03, and due to recurring events of mucus plugging with desaturations, the patient was transferred to the ICU for further evaluation and management. Upon arrival, patient underwent awake bronchoscopy with suction of mucus plugs and had initial radiographic improvement and also in oxygenation. ICU course was c/b atelectasis of R lung with haziness of LLL for which patient underwentintubation and bronchoscopy on 07/06/2022 with improved chest xray post bronchoscopy but with persistently collapsed RLL and bedside ultrasound with collapsed RLL with curtain sign on the right hemithorax and small ??Effusion on the Right; IPV initiated; Continuous EEG started by neurology. Patient was unable to be weaned off the ventilator due to neurological dysfunction, increased secretions. Patient is had transcervical Zenker's diverticulectomy, tracheostomy on 07/15/22. Since then, patient has been weaned off of the ventilator and is currently doing well on the trach collar. He is now more alert and minimally responding to commands. Withdraws to pain. Nods his head yes or shakes no . Squeezes fingers and gives a thumbs up on command. Patient to be transferred to [facility] [place] for further weaning from trach and eventual decannulation. Was seen by and cleared by ENT prior to discharge. To follow outpatient/PCP: ENT Significant Diagnostic Studies: Labs this admission: CBC: Recent Labs Lab Units 07/21/22 0218 07/20/22 0305 07/19/22 0322 07/18/22 0344 07/17/22 0412 WBC 10??3/uL 10.2 9.3 9.2 8.6 8.9 RBC 10??6/uL 2.45* 2.49* 2.31* 2.33* 2.36* HGB g/dL 7.4* 7.8* 7.1* 7.2* 7.4* HCT % 22.9* 23.1* 21.6* 21.6* 21.6* BMP: Recent Labs Lab Units 07/21/22 0218 07/20/22 0305 07/19/22 03207/18/22 03407/17/22 0412 NA mmol/L 142 139 140 140 141 CL mmol/L 109* 106 108* 109* 108* CO2 mmol/L 26 25 25 25 25 BUN mg/dL 23 21 18 16 CREATININE mg/dL 0.53* 0.71 0.86 0.94 1.05 CALCIUM mg/dL 9.2 9.4 8.9 8.8 8.5 Magnesium: No results for input(s): MG in the last 168 hours. Phosphorus: Recent Labs Lab Units 07/21/22 0218 07/20/22 0305 07/19/2232107/18/22 03407/17/22 0412 PHOS mg/dL 3.0 2.8 2.8 2.9 3.5 Coagulation: No results for input(s): PT, INR, APTT in the last 168 hours. Endocrine: No results for input(s): TSH, A1C in the last 168 hours. LFTs: No results for input(s): AST, ALT, TBILI, DBILI, IBILI, ALB, GGT, TP in the last 168 hours. Invalid input(s): ALP Imaging: XR CHEST 2VW Result Date: 06/02/2022 IMPRESSION: Bilateral lower lobe opacities consistent with aspiration pneumonia. Report dictated byAshu Welch M.D. (operations vice president) Ashwin Thomason MD have personally reviewed and interpreted this examination/study. > Interpreting Provider: Ashwin Read MD on 06/02/2022 5:09 PM XR FOOT LEFT 3VW OR MORE Result Date: 03/05/2022 IMPRESSION: No evidence of osteomyelitis or other acute osseous abnormality. > Interpreting Provider: Rachel Phillips MD on 03/05/2022 12:[address] HEAD WO CONTRAST Result Date: 06/21/2022 IMPRESSION: No acute intracranial abnormality. Specifically, no acute intracranial hemorrhage as clinically queried. The report was drafted by Nash Arreola MD (residential coordinator) Georgia Thomason MD, PhD have personally reviewed and interpreted this examination/study. > Interpreting Provider: Georgia Lees MD, PhD on 06/21/2022 9:[address] HEAD NON CONTRAST - suspected intracranial hemorrhage Result Date: 05/11/2022 IMPRESSION: 1. No acute intracranial abnormality. 2. No significant change since 03/17/2022. Reportdictated by Quan Nguyễn MD (operations vice president). Latrice Thomason MD have personally reviewed andinterpreted this examination/study. > Interpreting Provider: Latrice Ortiz MD on 05/11/2022 3:[address] HEAD WO CONTRAST Result Date: 03/18/2022 IMPRESSION: 1.No acute intracranial hemorrhage, midline shift, or significant mass effect. Report dictated by Akbar Barillas MD, MD (operations vice president). IWojciech MD have personally reviewed and interpreted this examination/study. > Interpreting Provider: Wojciech Neil MD on 03/18/2022 10:[address] HEAD WO CONTRAST Result Date: 03/11/2022 IMPRESSION: 1.No acute intracranial abnormality. 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 > Interpreting Provider: Latrice Ortiz MD on 1:[address] HEAD WO CONTRAST Result Date: 03/10/2022 IMPRESSION: 1.No acute intracranial hemorrhage, midline shift, or significant mass effect. > Interpreting Provider: Wojciech Neil MD on 03/10/2022 6:09 PM FL ESOPHAGRAM Result Date: 05/14/2022 IMPRESSION: 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 Report dictated by Scar Oliveira MD (operations vice president). Rachel Thomason MD have personally reviewed and interpreted this examination/study. > Interpreting Provider: Rachel Phillips MD on 05/14/2022 4:48 PM XR CHEST 1VW PORTABLE Result Date: 06/27/2022 IMPRESSION: Right lower lung zone consolidative opacities, which corresponds to the consolidation seen on chest CT 06/12/2022 and consistent with pneumonia and/or aspiration pneumonitis. Report drafted by Rodolfo Naidu MD (residential coordinator). IGeorgia MD, PhD have personally reviewed and interpreted this examination/study. > Interpreting Provider: Georgia Lees MD, PhD on 06/27/2022 11:09 PM XR CHEST 1VW PORTABLE Result Date: 06/12/2022 IMPRESSION: No pulmonary consolidation. Report dictated by Carrie Ashby MD (operations vice president). ICharles MD have personally reviewed and interpreted this examination/study. > Interpreting Provider: Charles Hare MD on 06/12/2022 12:28 PM XR CHEST 1VW PORTABLE Result Date: 05/11/2022 IMPRESSION: No acute pulmonary process. Report dictated by Ashu Welch M.D. (operations vice president) Paddy, KOBE RUBIO MD have personally reviewed and interpreted this examination/study. > Interpreting Provider: KOBE RUBIO MD on 05/11/2022 1:29 PM XR CHEST 1VW PORTABLE Result Date: 12/30/2021 IMPRESSION: No acute cardiopulmonary abnormalities. Report dictated by Marianna Langley MD (radiologyresident). IBebo MD have personally reviewed and interpreted this examination/study. > Interpreting Provider: Bebo Kuo MD on 12/30/2021 12:15 PM FL SWALLOWING FUNCTION STUDY Result Date: 03/22/2022 IMPRESSION: Modified barium swallow fluoroscopy as described. Please see detailed report from speech pathology staff. Ashwin Thomason MD have personally reviewed and interpreted this examination/study. > Interpreting Provider: Ashwin Read MD on 03/22/2022 3:[address] CHEST ABDOMEN PELVIS W CONT Result Date: 06/12/2022 Impression: 1.Right lower lung consolidation compatible with aspiration and/or pneumonia. 2.Severalenhancing hepatic lesions measuring up to 1.1 cm. These could represent flash filling hemangiomas or lesions of other etiology. These are more conspicuous compared to prior studies, possibly due to differences in the phase of contrast. Consider further characterization with liver MRI or follow-up to ensure stability. 3.Heterogeneous renal cortical enhancement, possibly reflecting pyelonephritis or a renal parenchymal or vascular process. Several nonobstructing small calculi, left greater than right. > Dictated by Brandee Celestin MD (operations vice president). ICharles MD have personally reviewed and interpreted this examination/study. > Interpreting Provider: Charles Hare MD on 06/12/2022 9:[address] CHEST ABDOMEN PELVIS W CONT Result Date: 03/09/2022 Impression: 1.Dependent left basilar consolidation with mild tree-in-bud opacities. Mild posterior right upper lobe tree-in-bud opacities. This concerning for aspiration pneumonia. 2.Multiple bilateral pulmonary nodules as detailed above including a 1.8 cm spiculated nodule. This may represent a mul tifocal infection although adenocarcinoma can have a similar appearance. 3 months follow-up is recommended. 3.No acute abnormality in the abdomen or pelvis. > Dictated by Brandee Celestin MD (operations vice president). I, John Graham MD have personally reviewed and interpreted this examination/study. > Interpreting Provider: John Graham MD on 03/09/2022 9:27 AM MRI FOOT LEFT WWO CONTRAST Result Date: 03/15/2022 IMPRESSION: 1. No abnormal marrow signal in the left foot to indicate acute osteomyelitis. 2. No loculated fluid collection in the left foot. > Interpreting Provider: John Graham MD on 28:[address] ANGIO BRAIN NECK STROKE Result Date: 12/29/2021 IMPRESSION: 1.The dural venous sinuses are not [...] comprehension and verification. > Dictated by: Ami Acuna MD, PhD (operations vice president). Saloni Thomason MD have personally reviewed and interpreted this examination/study. > Interpreting Provider: Saloni Lemus MD on 12/29/2021 11:[address] BRAIN STROKE Addendum Date: 12/29/2021 Dr. Lemus, the neuroradiology attending, reviewed the images at the time of this communication.> Interpreting Provider: Saloni Lemus MD on 12/29/2021 3:47 PM Result Date: 12/29/2021 IMPRESSION: 1.No acute intracranial process. 2.Old infarcts and senescent changes are stable compared to the brain CT from 05/01/2021. These findings were discussed in detail with the patient's care provider, MD Carrie by Dr. Ami Clifford MD, PhD, via telephone at 0816 hrs on 12/29/2021 with readback comprehension and verification. > Dictated by: Ami Clifford MD, PhD (operations vice president). Saloni Thomason MD have personally reviewed and interpreted this examination/study. > Interpreting Provider: Saloni Lemus MD on 12/29/2021 11:[address] CHEST PE W ABD PELVIS W CONT Result Date: 06/28/2022 Impression: 1.No evidence of acute pulmonary embolism. 2.Volume loss and confluent consolidation inthe right lower lobe with areas of hypoenhancement [...] unremarkable. > Dictated by Alexandro Kelsey MD (operations vice president) Ashwin Thomason MD have personally reviewed and interpreted this examination/study. > Interpreting Provider: Ashwin Read MD on 06/28/2022 8:[address] CHEST PE W ABD PELVIS W CONT Result Date: 05/30/2022 Impression: 1.No evidence of pulmonary embolism. 2.Debris are noted in the upper thoracic. Left lower lobe consolidative opacity is increased compared to the prior exam. Tree-in-bud opacities in the left upper lobe and right lower lung. Findings consistent with aspiration pneumonia. Focal bronchiectasis in the left lung base suggest acute on chronic aspiration. 3.No acute finding in the abdomen and pelvis. > Dictated by Ernie Tapia MD (operations vice president). John Thomason MD have personally reviewed and interpreted this examination/study. > Interpreting Provider: John Graham MD on 05/30/2022 11:10 PM Discharge Exam: GEN HEENT CARDIO RESP ABD EXT NEURO SKIN Disposition: technician terminal and repeater care facility Patient Instructions: Medication List START taking these medications oxybutynin 5 MG tablet Commonly known as: Ditropan 1 (one) tablet by Enteral Tube route 2 times daily CHANGE how you take these medications acetaminophen 500 MG tablet Commonly known as: Tylenol 1 (one) tablet by Enteral Tube route every 6 hours as needed Maximum allowable Acetaminophen amount= 4 Grams (4000 mg) / 24 hours. What changed: when to take this divalproex sprinkle 125 MG capsule Commonly known as: Depakote Sprinkle 4 (four) capsules by Enteral Tube route Every 6 Hours (03,09,15,21) for 30 days What changed: Another medication with the same name was removed. Continue taking this medication, and follow the directions you see here. polyethylene glycol 3350 17 g packet Commonly known as: Miralax 17 (seventeen) g by Enteral Tube route once daily for 30 days What changed: ?? when to take this ?? reasons to take this CONTINUE taking these medications artificial tears ophthalmic solution Instill 1 (one) drop into both eyes 3 times daily as needed aspirin 81 MG chew tablet Commonly known as: Aspirin 1 (one) tablet by Enteral Tube route once daily for 30 days atorvastatin 40 MG tablet Commonly known as: Lipitor 1 (one) tablet by Enteral Tube route once daily carboxymethylcellulose sodium 1 % ophthalmic solution Commonly known as: Refresh;Celluvisc cloBAZam 20 MG tablet Commonly known as: Onfi 1 (one) tablet by Enteral Tube route 2 times daily docusate sodium 150 MG/15ML solution Commonly known as: Colace fluticasone propionate 50 MCG/ACT nasal spray Commonly [...] Enteral Tube route 2 times daily loratadine 10 MG tablet Commonly known as: Claritin Nayzilam 5 MG/0.1ML nasal spray Generic drug: midazolam Godwin 0.1 mL into the nose as needed [...] route once daily STOP taking these medications bisacodyl 10 MG suppository Commonly known as: Dulcolax Where to Get Your Medications These medications were sent to [facility] Rx - 1A Document [place] [address] [address] [place] [address] ?? aspirin 81 MG chew tablet ?? divalproex sprinkle 125 MG capsule ?? oxybutynin 5 MG tablet ?? polyethylene glycol 3350 17 g packet Discharge Instructions Please follow up with ENT Raisa Vee MD Pulmonary and Critical Care Fellow [facility] Pager Number [phone] MOTIVE PAINT TECHNICIAN documented in this encounter Discharge Instructions * Discharge Instructions* Raisa Vee MD - 07/21/2022 3:00 PM AUTOMOTIVE PAINT TECHNICIAN Please follow up with ENT MOTIVE PAINT TECHNICIAN documented in this encounter Medications at Time [...] fluticasone propionate (Flonase) 50 MCG/ACT nasal spray Godwin 1 (one) spray into each nostril once [...] 09/27/2022 midazolam (Nayzilam) 5 MG/0.1ML nasal spray Godwin 0.1 mL into the nose as needed [...] as of this encounter Progress Notes * Jaden Padilla RN - 07/21/2022 4:49 PM CST Pt discharged to facility per orders. Problem: Fall Risk Goal: Fall risk and fall related injury risk are minimized (interventions related to the fall risk can be found in the flowsheet documentation) Outcome: Progressing Problem: Hemodynamic Status/Cardiac Output Goal: Patient has stable vital signs and fluid balance Outcome: Progressing Problem: Skin Integrity Goal: Skin integrity is maintained or improved Outcome: Progressing Problem: Oral Intake: Inadequate oral intake Goal: Enteral/parenteral nutrition prescription will be consistent with estimated needs Outcome: Progressing Problem: Pain/Discomfort Goal: Patient exhibits reduced pain/discomfort as evidenced by pain scores Outcome: Progressing Goal: Patient uses pharmacological and non-pharmacological pain management strategies. Outcome: Progressing Goal: Patient verbalizes acceptable level of pain relief and ability to engage in desired activity. Outcome: Progressing Problem: Oxygenation/Respiratory Function Goal: Patent airway Outcome: Progressing Goal: Respiratory rate/effort will be within specified limits Outcome: Progressing Problem: Care of Tracheostomy Goal: Tracheostomy tube and site will be maintained Outcome: Progressing Problem: Potential for Infection Goal: Insertion site without signs/symptoms of infection Outcome: Progressing Problem: Knowledge Deficit Goal: Patient/Significant other demonstrates understanding of Tracheostomy Outcome: Progressing Problem: Balance Goal: LTG - Patient will demonstrate Intervention to enhance balance for safe completion of daily activities Outcome: Progressing Problem: Transfers Goal: STG - Patient to transfer to and from sit to supine Outcome: Progressing MOTIVE PAINT TECHNICIAN * Felicity Lofton RN - 07/21/2022 3:40 PM CST Pt to transfer at 4;30 via [facility] , Trip # [id number]. Packet delivered to bedside MOTIVE PAINT TECHNICIAN * Felicity Lofton RN - 07/21/2022 1:05 PM CST Laurita with [facility] called with available bed for today . Team notified and states pt is medicallyready for discharge to LTAC Update Laurita informed CM that sister does not think pt is ready , Team notified and will call sister Anupama MOBILE: [phone] 1:35 Team spoke with pt's sister , OK for tranfer after trach downsized per team Felicity Lofton RN Care Coordination X [phone] MOTIVE PAINT TECHNICIAN * Blair Molina MD - 07/21/2022 10:24 AM CST Otolaryngology Progress Note 07/21/2022 SUBJECTIVE: 6 Days Post-Op s/p trach and Open Zenker's repair NAEON, VSS Mechanically ventilated through trach, on spontaneous setting this morning then placed on Trach collar Not yet mentally appropriate for MBS No concerns from nursing VITALS: Temp (30hrs) Max:99 ??F (37.2 ??C) Vitals: 07/21/22 0844 07/21/22 0900 07/21/22 0943 07/21/22 1000 BP: 123/70 107/58 Pulse: 100 96 104 102 Resp: Temp: 98.2 ??F (36.8 ??C) SpO2: 99% 100% Weight: Height: PHYSICAL EXAM: Gen: no acute distress, resting comfortably. HEENT: trach in place 6-0 cuffed Shiley, left neck incision c/d/i no fluctuance or significant edema sutures removed. Mild blood-tinged secreations Pulm: mechanically ventilated 30%/ 5 PEEP ASSESSMENT: Mojgan Tabor is a 62 year old male with a PMH significant for R. Occipital stroke (2015), head injury, seizures, Alzheimer's, Right BKA, refractory epilepsy, dysphasia w/PEG tube placement on 03/25/22 who is seen in consultation for Zenker's diverticulum. Recently seen outpatient with plans for elective surgery for his known Zenker's diverticulum, however he is again admitted with aspiration PNA.Now s/p transcervical Zenker's diverticulectomy, tracheostomy 07/15/22. PLAN: - Trach cleared from an ENT/surgical perspective. Ok for LTACH. Ok to change trach and work towardsdecannulation as appropriate. - Please have trach obturator in bag and prominently displayed at head of bed along with trach safety supplies in room. - - Routine trach care, routine suction and clean/remove/exchange inner cannula Recommend NPO with tube feeds until cleared by MBS- this can be done with ENT HOSPITAL PHARMACY TECHNICIAN Marcella Cheney on an outpatient setting in conjunction with follow up with Dr Hurtado. Please call to arrange this follow up AFTER patient is off vent for good and mentally appropriate for PO. - [phone] Blair Molina MD Otolaryngology and Head and Neck Surgery 07/21/22 MOTIVE PAINT TECHNICIAN * Raisa Vee MD - 07/20/2022 3:41 PM CST MEDICAL ICU Progress Note 07/20/2022 at 3:41 PM Admit Date: 06/27/2022 LOS: 22 days Brief Hospital Course: Mojgan Tabor is a 62 year old male??w/ PMHx significant for CVA with residual L sided defects, history of seizure disorder, dementia, dysphagia with recurrent aspiration (PEG-dependent), Zenker diverticulum, hypertension, BPH, PAD s/p L AKA d/t non-healing foot wound (02/2022), who [facility] presented [facility] on 06/28 with complaints of hypoxia. The patient is a shelter resident at [facility]. Imaging in ED showed likely aspiration pneumonia, for which he was started on antibiotics. ENT was consulted for possible surgical intervention with his Zenker diverticulum. On 07/02 the patient was noted to have R hemithorax opacification with mediastinal shift. Pulmonary Medicine was consulted on 07/03, and due to recurring events of mucus plugging with desaturations, the patient was transferred to the ICU for further evaluation and management. Upon arrival, patient underwent awake bronchoscopy with suction of mucus plugs and had initial radiographic improvement and also in oxygenation. ICU course was c/b atelectasis of R lung with haziness of LLL for which patient underwentintubation and bronchoscopy on 07/06/2022 with improved chest xray post bronchoscopy but with persistently collapsed RLL and bedside ultrasound with collapsed RLL with curtain sign on the right hemithorax and small Effusion on the Right; IPV initiated; Continuous EEG started by neurology. Patient wasunable to be weaned off the ventilator due to neurological dysfunction, increased secretions. Plan was discussed with ENT with tentative plan of zenker's diverticulum removal on 07/15/2021. Subjective: Interval History: -Patient is s/p transcervical Zenker's diverticulectomy, tracheostomy 07/15/22. Seen and examined atbeside. -On trach collar today -Jensen replaced -Pending LTACH OBJECTIVE: Temp: [97.7 ??F (36.5 ??C)-99.2 ??F (37.3 ??C)] 98.2 ??F (36.8 ??C) Pulse: [79-105] 96 Resp: [17-23] 22 BP: (104-143)/(60-81) 130/74 O2 %: [30 %] 30 % Intake/Output Summary (Last 24 hours) at 07/20/2022 1541 Last data filed at 07/20/2022 1530 Gross per 24 hour Intake 3153 ml Output 2750 ml Net 403 ml Physical Exam: General: Lying in bed, Elderly, Tracheostomy site in place. Trach collar HEENT: PERRL, EOMI, MMM, No JVD, OG/ET Tube in place Lungs: CTAB no w/r/r Heart: RRR no m/r/g Abdomen: S/NT/ND/BS x4, Extremity: No Edema, Pulses 2+ Skin: Warm and dry. No rashes or bruising noted. Neurological: Trach collar Intake/Output Summary (Last 24 hours) at 07/20/2022 1541 Last data filed at 07/20/2022 1530 Gross per 24 hour Intake 3153 ml Output 2750 ml Net 403 ml Vitals Pulse: 96 SpO2: 100 % Ventilator Information Ventilator ID: [id number] Ventilation Rate SET VENTILATION RATE (bpm): 10 bpm OBSERVED VENTILATION RATE (bpm): 26 bpm Insp Time (%): 30 % Insp Time (sec): 1.13 sec Insp Flow (L/Min): 60 l/Min Insp rise/Ramp (sec): 50 Sec ETS (%): 25 % % Row Cycle: 25 % I:E Ratio: 1:2 Actual I:E Ratio: 1:2.5 f/VT (RSBI): 78 Volumes SET TIDAL VOLUME (mL): 0 ML IDEAL BODY WEIGHT (kg): 69 kg EXHALED TIDAL VOLUME (ml): 315 ml Spontaneous Tidal Volume (mL): 331 ML Observed Minute Ventilation (L/m): 8.8 Liters/Minute Ventilator Pressures OBSERVED PEAK INSPIRATORY PRESSURE (cm H2O): 15 cm H2O Pressure Support: 8 cm H2O PLATEAU PRESSURE (cm H2O): 16 cm H2O Mean Airway Pressure (cm H2O): 8.5 cm H2O PEEP/CPAP: 5 cm H20 Actual PEEP (Intrinsic): 5 cm H20 Safety & Alarms Airway Emergency Supplies Available: Resuscitation Bag with PEEP Valve;Obturator;Extra Trach Same Size;Extra Trach Smaller Size;Appropriate Size Mask Humidity Temp (C): 37 Celsius Humidifier alarm on and functional: Yes Backup Mode Checked: Yes Alarm Volume: 10 High Pressure Alarm (cm H2O): 40 cm H2O Low Minute Ventilation : 3 Low Tidal Volume : 200 ml High Tidal Volume : 1000 Low Resp Rate: 6 High Resp Rate: 40 Apnea alarm (On/Off): On Apnea (secs): 25 secs Pulmonary Suctioning Suctioned?: Yes Suction Mode: Oral;Trach Secretion Consistency: Thick Secretion Color: Yellow;White Secretions Amount: Moderate Hyperoxygenated prior to suctioning?: Yes Labs: CBC: Recent Labs Component Name 07/20/2230407/19/2232107/18/22 0344 WBC 9.3 9.2 8.6 HGB 7.8* 7.1* 7.2* BMP: Recent Labs Component Name 07/20/22 03007/19/22 0322 07/18/22 0344 NA 139 140 140 CL 106 108* 109* CO2 25 25 25 BUN 23 21 18 CREATININE 0.71 0.86 0.94 CALCIUM 9.4 8.9 8.8 MAGNESIUM 1.6 1.7 1.7 PHOS 2.8 2.8 2.9 LFT: Recent Labs Component Name 06/30/22 1039 06/27/22221406/21/22 1926 PROT 6.2 8.3 8.3 ALB 2.2* 3.4 3.2* ALKPHOS 65 95 88 AST 13 19 19 ALT 5 6 10 Coagulation: Recent Labs Component Name 06/27/22221405/11/22 1309 03/11/22 1059 PT 12.8 13.5 15.4* INR 1.0 1.0 1.2 Cardiac markers: Recent Labs Component Name 07/11/22 0040 07/01/22 1634 06/28/22 0141 06/27/22 2215 05/30/22 1750 03/08/22 1455 12/31/21 0412 CKTOTAL 49 42 - - - - 77 TROPONINI - - <0.010 <0.010 <0.010 - - - = values in this interval not displayed. MICROBIOLOGY Microbiology Results (Displays last 21 days for this encounter ONLY) Procedure Component Value - Date/Time CULTURE BRONCHIAL WASHING+GRAM STAIN [[id number]] Collected: 07/05/22 223 Lab Status: Final result Specimen: Microbiology from Bronchial Washings Updated: 07/07/22 1552 Culture No growth Gram Stain Rare Polymorphonuclear cells Rare Squamous epithelial cells No organisms seen CULTURE URINE [[id number]] Collected: 07/04/22 0145 Lab Status: Final result Specimen: Urine Clean Catch Updated: 07/05/22 0822 Culture Urine 10,000-50,000 CFU/mL urogenital heidi CULTURE BLOOD FUNGUS [[id number]] (Normal) Collected: 06/30/22 204 Lab Status: Preliminary result Specimen: Blood Peripheral Updated: 07/19/22 1202 Culture No fungus isolated RESPIRATORY PANEL WITH SARS-COV-2 BY PCR (ST) [[id number]] (Normal) Collected: 06/30/22 195 Lab Status: Final result Specimen: Microbiology from Nasopharyngeal Updated: 07/01/22 0014 Adenovirus PCR Not detected Coronavirus 229E PCR Not detected Coronavirus HKU1 PCR Not detected Coronavirus NL63 PCR Not detected Coronavirus OC43 PCR Not detected COVID-19 PCR Not detected Human Metapneumovirus PCR Not detected Human Rhinovirus/Enterovirus PCR Not detected Influenza A PCR Not detected Influenza B PCR Not detected Parainfluenza Virus 1 PCR Not detected Parainfluenza Virus 2 PCR Not detected Parainfluenza Virus 3 PCR Not detected Parainfluenza Virus 4 PCR Not detected Respiratory Syncytial Virus PCR Not detected Bordetella parapertussis PCR Not detected Bordetella pertussis PCR Not detected Chlamydia pneumoniae PCR Not detected Mycoplasma pneumoniae PCR Not detected Narrative: This nucleic amplification assay has received FDA authorization via the [employer]. CULTURE BLOOD [[id number]] (Normal) Collected: 06/30/22 1625 Lab Status: Final result Specimen: Blood Peripheral Updated: 07/05/22 1901 Culture No growth day 5 CULTURE BLOOD [[id number]] (Normal) Collected: 06/30/22 1611 Lab Status: Final result Specimen: Blood Peripheral Updated: 07/05/22 1901 Culture No growth day 5 IMAGING No results found. Medications ??? 0.9% NaCl 3 mL Intracatheter q8h ??? albuterol HFA 4 puff Inhalation q12h ??? artificial tears Each Eye q8h ??? aspirin 81 mg Enteral Tube QDAY ??? atorvastatin 40 mg Enteral Tube QDAY ??? chlorhexidine 15 mL Mouth/Throat BID ??? cloBAZam 20 mg Enteral Tube BID ??? divalproex sprinkle 500 mg Enteral Tube Every 6 Hours (03,09,15,21) ??? enoxaparin 40 mg Subcutaneous QDAY ??? famotidine 20 mg Enteral Tube QDAY ??? lacosamide 200 mg Enteral Tube BID ??? levETIRAcetam 1,000 mg Enteral Tube BID ??? oxybutynin 5 mg Enteral Tube BID ??? polyethylene glycol 3350 17 g Enteral Tube QDAY ??? senna-docusate 1 tablet Enteral Tube BID ??? sodium chloride (Inhalant) 4 mL Inhalation BID ??? tamsulosin 0.4 mg Oral QDAY Continuous Medications PRN Medications ??? SALINE LOCK, INSERT AND MAINTAIN AND 0.9% NaCl AND 0.9% NaCl ??? acetaminophen ??? artificial tears ??? bisacodyl ??? EPINEPHrine-NaCl 0.9% ??? fentaNYL (PF) ??? lidocaine 1 % - EPINEPHrine [id number] ASSESSMENT: Epilepsy, unspecified, not intractable, without status epilepticus (CMS/HCC) POA: Yes Muscle weakness (generalized) POA: Yes Hemiplegia and 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- dominant side (CMS/HCC) POA: Yes Acute encephalopathy POA: Yes Sepsis without acute organ dysfunction (CMS/HCC) POA: Yes PAD (peripheral artery disease) (CMS/HCC) POA: Yes History of stroke POA: Yes Protein-calorie malnutrition, unspecified severity (CMS/HCC) POA: Yes Aspiration into airway POA: Yes Leukocytosis, unspecified type POA: Yes Tachycardia POA: Yes Hypoxia POA: Yes Acute respiratory failure with hypoxia (CMS/HCC) POA: Yes Pneumonia of right lower lobe due to infectious organism POA: Yes Atelectasis, right POA: Yes Contrast-induced nephropathy POA: Yes Zenker diverticula POA: Yes Hypernatremia POA: No Hyperkalemia POA: No PLAN: Neurological -Encephalopathy related to metabolic, hypoxia, seizure disorder, ICU delirium, Brain infarction -On depakote 500 mg q6h, Clobazam 20 mg bid, Keppra 500mg bid and Vimpat 200 mg BID -Continue ASA -Lipitor 40 mg daily -Aspiration precautions -Seizure precautions -Appreciate neurology recommendations Cardiovascular: -Continue ASA -Keep MAP >65 Pulmonary: -On Trach Collar and doing well -Has complicated 7 days of antibiotics. 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 Will monitor Na daily with CMP. -Continue Flomax 0.4mg daily -Oxybutynin 5 mg bid -Electrolytes: Monitor chem 7 and Mg every 24 hours and replace Mg if less than 1.8 or if K < 3.5 -Urinary retention: Has a jensen catheter. Endocrine: -Sliding scale to keep between glucose between 140 - 180 I.D.: -Completed Zosyn for 7 days Heme/Onc: Transfusion Protocol: Hb < 7, Plt < 10 LDA: Peripheral IV Anterior;Left;Upper Arm (Active) Placement Date/Time: 07/10/22 0200 Orientation: Anterior;Left;Upper Location: Arm Name/Credentials of person who placed: Kandi GoodsonWesley IV Catheter Size: 20 Gauge Technique: Ultrasound Guidance Number of days: 4 Enteral - Percutaneous Endoscopic Gastrostomy Abdomen;Midline;Upper (Active) Placement Date/Time: 03/25/22 1654 Name/Credentials of person who placed: Jolynn Ann MD Type: Percutaneous Endoscopic Gastrostomy Tube Location: Abdomen;Midline;Upper Size (FR): 24 Procedure Tolerance: Well Number of days: 111 ETT Endotracheal Tube 8 MM (Active) Placement Date/Time: 07/05/228 Person who placed: Shannon Nino MD Mask Ventilation: easy mask Induction: Rapid Sequence Blade Type: King Blade Size: 4 Support Device: Video Laryngoscope Device: Endotracheal Tube Location: Oral Tube s... Number of days: 8 Other Wound Anterior;Lower;Proximal;Right Arm (Active) Date/Time: 06/29/221999 Orientation: Anterior;Lower;Proximal;Right Location: Arm Number of days: 14 Other Wound Left Ear (Active) Date/Time: 07/03/221839 Orientation: Left Location: Ear Number of days: 10 Other Wound Right Ear (Active) Date/Time: 07/03/221839 Orientation: Right Location: Ear Number of days: 10 Prophylaxis: DVT prophylaxis: [x] Lovenox 40mg , [] Lovenox 30mg, [] Sq Heparin GI prophylaxis: Pepcid Aspiration precautions with elevation of HOB by 30 degrees. Fluids: None. On TF. Diet: DIETARY NUTRITION SUPPLEMENTS DIET NPO Except: NO EXCEPTIONS DIET TUBE FEEDING CONTINUOUS Activity: Ad Merline Disposition: ICU Monitoring Code: Full Code Raisa Vee M.D. Pulmonary / Critical Care Fellow Division of Pulmonary, Critical Care, & Sleep Medicine [facility] 07/20/22 MOTIVE PAINT TECHNICIAN Associated attestation - Juan Diego Garcia MD - 07/20/2022 7:52 PM AUTOMOTIVE PAINT TECHNICIAN I have seen, examined and discussed the patient with the fellow and I agree with the the findings and plan of care/recommendations as documented by the fellow. Date of service: 07/20/2022 Juan Diego Garcia M.D. Customer Service Dispatcher of Internal Medicine Division of Pulmonary, Critical Care and Sleep Medicine [facility] * Sonalmerlynalvino Chuy - 07/20/2022 2:32 PM CST Patient seen for bedside mobility together with PT/OT Start time: 929 End time: 946 Session duration: 17 minutes Airway and position: 6 cuffed Trach Patient's vent/O2 settings during session: SPONT PS8, PEEP 5, 30% Vital signs continuously monitored during session and were as follows. Before: Heart rate - 101 Respiratory rate- 12 SpO2- 100 After: 101 14 100 Patient activity:Pt was moved to sitting position on side of bed, right leg exercise, pt laid back supine after. Patient tolerated session Pt PSV bumped up to 10 due to increased RR. Pt placed back on PS of 8 after Post treatment patient VSS stable throughout, stayed in bed MOTIVE PAINT TECHNICIAN * Felicity Lofton RN - 07/20/2022 1:04 PM CST Referral sent to Vita , Laurita @[phone] aware , states she has spoken to pt's sister Felicity Lofton RN Care Coordination X [phone] MOTIVE PAINT TECHNICIAN * Mohindergretchen Mandi, PT - 07/20/2022 9:26 AM CST [facility] Physical Medicine and Rehabilitation Physical Therapy Initial Evaluation Note Patient: Mojgan Tabor Med Record Number: [id number] Date of : 1960 Age: [age] year old CoEval with RT due to pt's respiratory needs and OT due to pt unknown tolerance and assist level. PPE worn by staff: gloves;mask - procedural;gown - disposable PPE worn by patient: gown - patient, clean Discharge Recommendation: Patient will benefit from multidisciplinary inpatient therapies; LTAC forpt's respiratory needs. In addition to the 1:1 evaluation of the patient, additional eval time was spent completing the chart review prior to the assessment, completing the multidisciplinary plan of care and education plan post evaluation and communicating results of the eval to other treatment team members. Nurse and Occupational Therapy contacted regarding patient status and/or discharge plan. Physician Orders: Evaluation and Treat PRECAUTIONS: Weight Bearing Status: (No WB restrictions) Activity Level: Up with Assist Other Precautions: L inattention DIAGNOSIS: Patient Active Problem List: Seizure (CMS/HCC) [...] right Contrast-induced nephropathy Zenker diverticula Hypernatremia Hyperkalemia Past Medical History: Diagnosis Date ??? CVA (cerebral vascular accident) (CMS/HCC) ??? HTN (hypertension) ??? Seizure (CMS/HCC) SUBJECTIVE: Subjective: Pt does not verbalize 2/2 trach/vent at this time. Pt does not resist initiating mobility. Home Situation: Type of Residence: (unable to obtain 2/2 AMS) Prior Level of Functioning: Prior Level of Function Mobility: (unable to obtain 2/2 AMS) Pain Assessment: Pain Location #1 Pain Scale/Observation: Behaviors Pain Intervention(s): Non-pharmacological Behaviors/Assumed Pain Present : (facial grimace with sup<>sit & cervical PROM) OBJECTIVE: At start of therapy session, patient found in bed and with no alarm. General Appearance: adult male sleeping in bed in [facility]. LDAs: IV's: Peripheral line, Catheter, Telemetry, Oxygen Ventilator and Tracheostomy and PEG Tube Edema: no edema noted in bilateral lower extremities Vitals: (*Assess the 3 levels of oxygen saturations both for room air and 02 unless rest on room air is 88% or less). Rest BP: ? 123/73 (92) HR: 101 Sp02 ?? Sp02 100% Room Air ?? L O2 ?? Spont 30% FiO2 8/5 Ex/Gait/Activity With 02 BP: 131/85 (99) HR: 105 Sp02 100% L O2 Spont 30% FiO2 10/5 Post Activity BP: 139/76 (95) HR: 96 Sp02 ?? Sp02 100% L O2 ?? Room Air Spont 30% FiO2 10/5 Observations: Pt with increased respiratory rate, so RT increased pressure support. RT student, Agustin, present throughout session. Mental Status/Cognition: Level of Consciousness-Adult: Drowsy;Eyes Open Spontaneously;Responds to verbal stimuli Orientation Level: Unable to Obtain Cognition: Follows Commands-inconsistent;Attention/concentration-decreased Attention Span: Difficulty attending to directions ROM: RLE: PROM WFL LLE: L AKA Strength: RLE:deficits noted LLE: L AKA Pt gross functional strength impaired. Tone: RLE: no abnormal tone noted LLE: L AKA Coordination: RLE: impaired LLE: L AKA Sensation: RLE: not tested LLE: not tested Unable to formally assess 2/2 cognition. Perception: Inattention/Neglect: Cues to attend left visual field;Cues to attend to left side of body Visual/Motor Tracking: Requires cues, head turns, or add eye shifts to track Mobility: A gait belt and non-slip socks were used for all out of bed activity this date. Bed Mobility: Rolling: Total Assistance Supine to Sit: Total Assistance;X 2 with HOB in semi-fowlers position Sit to Supine: Total Assistance;X 2 Balance: Balance Scales/Tests Used: Sitting: Static/Dynamic Sitting - Static: Poor Sitting - Dynamic: Poor ACTIVITY TOLERANCE: Patient's activity tolerance: poor TREATMENT/INTERVENTIONS: evaluation, bed mobility training, transfer training and monitoring of vitals Modified Florentino: Current Modified [place] Score: 5 EDUCATION: While performing PT, Patient was instructed in:functional mobility training, safety awareness/fall precautions , use of call light Presented to patient who demonstrates Questionable understanding of instructions given. INFORMED CONSENT TO TREATMENT: Plan of care including recommended therapy, goals and frequency, discussed with patient who understands and agrees to proceed. ASSESSMENT: Patient would benefit from additional Physical Therapy sessions to achieve the following functionalgoals to enhance independence. Short Term Goals: Goal Formation Patient unable to participate in goal formulation Patient will perform bed mobility with maximal assist Patient will transfer bed to/from chair with maximal assist and X 2 Fpc Goal(s): Patient to discharge to appropriate next level of inpatient care. Equipment Issued: none Plan: Plan: Transfer training Endurance training Bed mobility training Balance training Energy conservation techniques Safety awareness Home exercise program training If patient is discharged from the facility, this note serves as a discharge summary if further physical therapy visits did not occur. Refer to filed flowsheet for further details. Following therapy session, patient left in bed, with bed alarm on , with call light within reach, with RN, Meeta aware, with therapy cues visible on white board. All lines, monitors, IV's, equipment in place and intact pre and post visit. Patient was in no discomfort and had no additional needs at conclusion of PT eval. MOTIVE PAINT TECHNICIAN * Saloni Payan, OT - 07/20/2022 9:26 AM CST [facility] Physical Medicine and Rehabilitation Occupational Therapy Initial Evaluation Note Co-eval with PT and RT Patient: Mojgan Tabor [facility] Record Number: [id number] Date of : 1960 Age: [age] year old PPE worn by staff: gloves;mask - procedural;gown - disposable PPE worn by patient: gown - patient, clean Tech: No Discharge Recommendation: Patient will benefit from multidisciplinary inpatient therapies. LTAC In addition to the 1:1 evaluation of the patient, additional eval time was spent completing the chart review prior to the assessment, completing the multidisciplinary plan of care and education plan post evaluation and communicating results of the eval to other treatment team members. Nurse and Physical Therapy contacted regarding patient status and/or discharge plan. Physician Orders: Evaluation and Treat Activity Level: up to chair with assist PRECAUTIONS: Weight Bearing Status: Lower Extremity;Upper Extremity Weight Bearing: WBAT DIAGNOSIS: Patient Active Problem List: Seizure (CMS/HCC) [...] right Contrast-induced nephropathy Zenker diverticula Hypernatremia Hyperkalemia Past Medical History: Diagnosis Date ??? CVA (cerebral vascular accident) (CMS/HCC) ??? HTN (hypertension) ??? Seizure (CMS/HCC) SUBJECTIVE: Subjective: Pt nonverbal throughout PATIENT GOALS: Patient's Primary Concern: unable to state Home Situation: Type of Residence: (unable to obtain 2/2 AMS) Prior Level of Functioning: Mobility: (unable to obtain 2/2 AMS) Pain Assessment: Pain Location #1 Pain Scale/Observation: Behaviors Pain Intervention(s): Non-pharmacological Behaviors/Assumed Pain Present : (facial grimace with sup<>sit) OBJECTIVE: At start of therapy session, patient found in bed General Appearance: resting in bed, NAD LDA: IV's: Peripheral line, Catheter, PEG Tube and vent to trach Edema: No edema noted Vitals: (*Assess the 3 levels of oxygen saturations both for room air and 02 unless rest on room air is 88% or less). Rest BP: 123/73 (92) HR: 101 Sp02 Sp02 100% Room Air L O2 Spont 30% FiO2 8/5 Ex/Gait/Activity With 02 BP: 131/85 (99) HR: 105 Sp02 100% L O2 Spont 30% FiO2 10/5 Post Activity BP: 139/76 (95) HR: 96 Sp02 Sp02 100% L O2 Room Air Spont 30% FiO2 10/5 Observations: Pt with increased respiratory rate, so RT increased pressure support. RT student Agustin present throughout session. Mental Status/Cognition: Level of Consciousness-Adult: Drowsy;Eyes Open Spontaneously;Responds to verbal stimuli Orientation Level: Unable to Obtain Cognition: Follows Commands-inconsistent;Attention/concentration-decreased Attention Span: Difficulty attending to directions UE ROM: RUE: PROM WFL LUE: PROM WFL Strength: R grasp 3/5, R elbow 2-/5, R shoulder 1/5 L grasp 2/5, otherwise 0/5 UE Tone RUE: no abnormal tone noted LUE: flaccid Coordination: deficits noted for serial opposition UE Sensation RUE: no complaints of numbness or tingling LUE: facial grimace with noxious stimulus to hand, no withdrawal Perception: Unable to track or locate to L visual field Mobility: A gait belt and non-slip socks were used for all out of bed activity this date. Bed Mobility: Rolling: Total Assistance Supine to Sit: Total Assistance;X 2 with HOB in semi-fowlers position Sit to Supine: Total Assistance;X 2 Functional Ambulation: Not tested this date Balance: Balance Scales/Tests Used: Sitting: Static/Dynamic Sitting - Static: Poor Sitting - Dynamic: Poor Activities of Daily Living Oral Facial Hygiene: Maximal Assistance (to wash face when presented with warm wet washcloth) Upper Body Dressing: Total Assistance (to manage gown) Toileting: Total Assistance (to roll and complete BM hygiene) Splint Issued/Checked: none ACTIVITY TOLERANCE: Patient's activity tolerance: poor plus. TREATMENT / EDUCATION / INTERVENTIONS: While performing OT, Patient was instructed in:functional mobility training, self-care training, cognitive retraining, safety awareness/fall precautions , discharge planning Patient not appropriate for education at this time secondary to mental status. INFORMED CONSENT TO TREATMENT: Plan of care is discussed but patient with questionable understanding. ASSESSMENT: Functional performance limited due to: limited activities of daily living, pain, decreased functional mobility, decreased functional balance, decreased cognition , decreased safety awareness, upper extremity functional impairments, decreased endurance and activity tolerance, decreased coordination and decreased visual motor skills. Patient continues to benefit from skilled Occupational Therapy toachieve the following functional goals. Short Term Goals: Goal Formation Patient unable to participate in goal formulation Cognition: 1 step commands and 100% of the time Patient will perform supine to/from sit with moderate assist and X 2 Patient will tolerate treatment 25 minutes and with fair+ endurance Patient will demonstrate fair understanding of safety education, HEP education, energy conservationand adaptive equipment Director Of Enterprise Strategy Goal(s): Patient to discharge to appropriate next level of inpatient care. Plan: Plan: ADL training Adaptive equipment training Cognitive stimulation Functional transfer training Functional balance training Endurance training Bed mobility training Energy conservation techniques Safety awareness Home exercise program training Coordination exercises If patient is discharged from the facility, this note serves as a discharge summary if further occupational therapy visits did not occur. Refer to filed flowsheet for further details. Following therapy session, patient left in bed, with call light within reach, with RNMeeta aware, with therapy cues visible on white board. Pt turned to L side per ALFRED Tim. MOTIVE PAINT TECHNICIAN * Sondra Orlando MD - 07/20/2022 7:58 AM CST Otolaryngology Progress Note 07/20/2022 SUBJECTIVE: 5 Days Post-Op s/p trach and Zenker's repair BILLY VSS Mechanically ventilated through trach, on spontaneous setting Not yet mentally appropriate for MBS No concerns from nursing VITALS: Temp (30hrs) Max:99.2 ??F (37.3 ??C) Vitals: 07/20/22 0414 07/20/22 0500 07/20/22 0600 07/20/22 0700 BP: 131/70 129/72 143/77 Pulse: 104 105 99 100 Resp: Temp: SpO2: 100% 100% 100% 100% Weight: Height: Intake/Output Summary (Last 24 hours) at 07/20/2022 0759 Last data filed at 07/20/2022 0632 Gross per 24 hour Intake 2845 ml Output 2445 ml Net 400 ml MEDICATIONS FOR CURRENT ENCOUNTER: SCHEDULED MEDICATIONS: 0.9% NaCl injection 3 mL, Intracatheter, q8h albuterol HFA (Proventil; Ventolin; Proair) 108 (90 Base) MCG/ACT inhaler 4 puff, Inhalation, q12h artificial tears ophthalmic ointment, Each Eye, q8h aspirin chew tablet 81 mg, Enteral Tube, QDAY atorvastatin (Lipitor) tablet 40 mg, Enteral Tube, QDAY chlorhexidine (Peridex) 0.12 % oral solution 15 mL, Mouth/Throat, BID cloBAZam (Onfi) tablet 20 mg, Enteral Tube, BID divalproex sprinkle (Depakote Sprinkle) capsule 500 mg, Enteral Tube, Every 6 Hours (03,09,15,21) enoxaparin (Lovenox) injection 40 mg, Subcutaneous, QDAY famotidine (Pepcid) tablet 20 mg, Enteral Tube, QDAY lacosamide (Vimpat) tablet 200 mg, Enteral Tube, BID levETIRAcetam (Keppra) tablet 1,000 mg, Enteral Tube, BID oxybutynin (Ditropan) tablet 5 mg, Enteral Tube, BID polyethylene glycol 3350 (Miralax) packet 17 g, Enteral Tube, QDAY senna-docusate (Senokot-S) tablet 1 tablet, Enteral Tube, BID sodium chloride (Inhalant) 7 % nebulizer solution 4 mL, Inhalation, BID ?? tamsulosin (Flomax) capsule 0.4 mg, Oral, QDAY ?? CONTINUOUS MEDICATIONS: PRN MEDICATIONS: 0.9% NaCl injection 1-10 mL, Intracatheter, PRN acetaminophen (Tylenol) tablet 500 mg, Enteral Tube, q4h PRN artificial tears ophthalmic solution 1 drop, Each Eye, TID PRN bisacodyl (Dulcolax) suppository 10 mg, Rectal, QDAY PRN EPINEPHrine-NaCl 0.9% syringe, , PRN fentaNYL (PF) (Sublimaze) injection 25 mcg, Intravenous, q1h PRN ?? lidocaine 1% (Xylocaine-MPF) - EPINEPHrine 1:100,000 injection, , PRN PHYSICAL EXAM: Gen: no acute distress, resting comfortably. HEENT: trach in place 6-0 cuffed Shiley, left neck incision c/d/i no fluctuance or significant edema. Mild blood-tinged secreations Pulm: mechanically ventilated 30%/ 5 PEEP ASSESSMENT: Mojgan Tabor is a 62 year old male with a PMH significant for R. Occipital stroke (2014), head injury, seizures, Alzheimer's, Right BKA, refractory epilepsy, dysphasia w/PEG tube placement on 03/25/22 who is seen in consultation for Zenker's diverticulum. Recently seen outpatient with plans for elective surgery for his known Zenker's diverticulum, however he is again admitted with aspiration PNA.Now s/p transcervical Zenker's diverticulectomy, tracheostomy 07/15/22. PLAN: - Please have trach obturator in bag and prominently displayed at head of bed - Please have sign in room/above bed stating: ENT only to cut trach sutures, change trach ties, change/downsize trach - Please have an extra same size trach tube (6-0 cuffed), one-size small trach tube (4-0 cuffed), trach ties, and suture removal kit at bedside - Routine trach care, ok to suction and clean/remove/exchange inner cannula - plan for possible MBS when neurologically appropriate with HOSPITAL PHARMACY TECHNICIAN Marcella Thomas. ENT will coordinate. - Continue NPO until swallowing study completed. OK for tube feeds Sondra Orlando MD Otolaryngology and Head and Neck Surgery 07/20/22 MOTIVE PAINT TECHNICIAN * Raisa Vee MD - 07/19/2022 3:53 PM CST Images from the original note were not included. MEDICAL ICU Progress Note 07/19/2022 at 3:53 PM Admit Date: 06/27/2022 LOS: 21 days Brief Hospital Course: oMjgan Tabor is a 62 year old male??w/ PMHx significant for CVA with residual L sided defects, history of seizure disorder, dementia, dysphagia with recurrent aspiration (PEG-dependent), Zenker diverticulum, hypertension, BPH, PAD s/p L AKA d/t non-healing foot wound (02/2022), who initially presented to [facility] on 06/28 with complaints of hypoxia. The patient is a shelter resident at [facility]. Imaging in ED showed likely aspiration pneumonia, for which he was started on antibiotics. ENT was consulted for possible surgical intervention with his Zenker diverticulum. On 07/02 the patient was noted to have R hemithorax opacification with mediastinal shift. Pulmonary Medicine was consulted on 07/03, and due to recurring events of mucus plugging with desaturations, the patient was transferred to the ICU for further evaluation and management. Upon arrival, patient underwent awake bronchoscopy with suction of mucus plugs and had initial radiographic improvement and also in oxygenation. ICU course was c/b atelectasis of R lung with haziness of LLL for which patient underwentintubation and bronchoscopy on 07/06/2022 with improved chest xray post bronchoscopy but with persistently collapsed RLL and bedside ultrasound with collapsed RLL with curtain sign on the right hemithorax and small Effusion on the Right; IPV initiated; Continuous EEG started by neurology. Patient wasunable to be weaned off the ventilator due to neurological dysfunction, increased secretions. Plan was discussed with ENT with tentative plan of zenker's diverticulum removal on 07/15/2021. Subjective: Interval History: -Patient is s/p transcervical Zenker's diverticulectomy, tracheostomy 07/15/22. Seen and examined at[facility]ide. -On PSV. Plan for trach collar today -Jensen got pulled out overnight OBJECTIVE: Temp: [97.8 ??F (36.6 ??C)-99 ??F (37.2 ??C)] 97.8 ??F (36.6 ??C) Pulse: [78-108] 80 Resp: [10-21] 20 BP: (95-133)/(57-78) 95/67 Arterial Line BP #1: (81-140)/(48-65) 133/59 O2 %: [30 %] 30 % Intake/Output Summary (Last 24 hours) at 07/19/2022 1553 Last data filed at 07/19/2022 1200 Gross per 24 hour Intake 2247 ml Output 1650 ml Net 597 ml Physical Exam: General: Lying in bed, Elderly, Tracheostomy site in place. Trach to vent on PSV HEENT: PERRL, EOMI, MMM, No JVD, OG/ET Tube in place Lungs: CTAB no w/r/r Heart: RRR no m/r/g Abdomen: S/NT/ND/BS x4, Extremity: No Edema, Pulses 2+ Skin: Warm and dry. No rashes or bruising noted. Neurological: Trach to vent. Moves all extremities. Requiring significant stimulation to assist breathing on PSV. Intake/Output Summary (Last 24 hours) at 07/19/2022 1553 Last data filed at 07/19/2022 1200 Gross per 24 hour Intake 2247 ml Output 1650 ml Net 597 ml Vitals Pulse: 80 SpO2: 99 % Ventilator Information Ventilator ID: [id number] Ventilation Rate SET VENTILATION RATE (bpm): 10 bpm OBSERVED VENTILATION RATE (bpm): 20 bpm Insp Time (%): 30 % Insp Time (sec): 1.13 sec Insp Flow (L/Min): 60 l/Min Insp rise/Ramp (sec): 50 Sec ETS (%): 25 % % Row Cycle: 25 % I:E Ratio: 1:2 Actual I:E Ratio: 1:3.1 f/VT (RSBI): 58 Volumes SET TIDAL VOLUME (mL): 0 ML IDEAL BODY WEIGHT (kg): 69 kg EXHALED TIDAL VOLUME (ml): 315 ml Spontaneous Tidal Volume (mL): 344 ML Observed Minute Ventilation (L/m): 6.7 Liters/Minute Ventilator Pressures OBSERVED PEAK INSPIRATORY PRESSURE (cm H2O): 15 cm H2O Pressure Support: 8 cm H2O PLATEAU PRESSURE (cm H2O): 16 cm H2O Mean Airway Pressure (cm H2O): 7.6 cm H2O PEEP/CPAP: 5 cm H20 Actual PEEP (Intrinsic): 5 cm H20 Safety & Alarms Airway Emergency Supplies Available: Appropriate Size Mask;Resuscitation Bag with PEEP Valve Humidity Temp (C): 37 Celsius Humidifier alarm [...] secs Pulmonary Suctioning Suctioned?: Yes Suction Mode: Oral;ET Tube Secretion Consistency: Thick Secretion Color: Clear;White Secretions Amount: Small Hyperoxygenated prior to suctioning?: Yes Labs: CBC: Recent Labs Component Name 07/19/22 03207/18/22 0344 07/17/22 0412 WBC 9.2 8.6 8.9 HGB 7.1* 7.2* 7.4* BMP: Recent Labs Component Name 07/19/22 03207/18/22 0344 07/17/22 0412 NA 140 140 141 CL 108* 109* 108* CO2 25 25 25 BUN 21 18 16 CREATININE 0.86 0.94 1.05 CALCIUM 8.9 8.8 8.5 MAGNESIUM 1.7 1.7 1.8 PHOS 2.8 2.9 3.5 LFT: Recent Labs Component Name 06/30/22 1039 06/27/22 2215 06/21/22 1926 PROT 6.2 8.3 8.3 ALB 2.2* 3.4 3.2* ALKPHOS 65 95 88 AST 13 19 19 ALT 5 6 10 Coagulation: Recent Labs Component Name 06/27/22 2215 05/11/22 1309 03/11/22 1059 PT 12.8 13.5 15.4* INR 1.0 1.0 1.2 Cardiac markers: Recent Labs Component Name 07/11/22 0040 07/01/22 1634 06/28/22 0141 06/27/22 2215 05/30/22 1750 03/08/22 1455 12/31/21 0412 CKTOTAL 49 42 - - - - 77 TROPONINI - - <0.010 <0.010 <0.010 - - - = values in this interval not displayed. MICROBIOLOGY Microbiology Results (Displays last 21 days for this encounter ONLY) Procedure Component Value - Date/Time CULTURE BRONCHIAL WASHING+GRAM STAIN [[id number]] Collected: 07/05/222230 Lab Status: Final result Specimen: Microbiology from Bronchial Washings Updated: 07/07/22 1552 Culture No growth Gram Stain Rare Polymorphonuclear cells Rare Squamous epithelial cells No organisms seen CULTURE URINE [[id number]] Collected: 07/04/22 0145 Lab Status: Final result Specimen: Urine Clean Catch Updated: 07/05/22 0822 Culture Urine 10,000-50,000 CFU/mL urogenital heidi CULTURE BLOOD FUNGUS [[id number]] (Normal) Collected: 06/30/222044 Lab Status: Preliminary result Specimen: Blood Peripheral Updated: 07/19/22 1202 Culture No fungus isolated RESPIRATORY PANEL WITH SARS-COV-2 BY PCR ([facility]) [[id number]] (Normal) Collected: 06/30/221951 Lab Status: Final result Specimen: Microbiology from Nasopharyngeal Updated: 07/01/22 0014 Adenovirus PCR Not detected Coronavirus 229E PCR Not detected Coronavirus HKU1 PCR Not detected Coronavirus NL63 PCR Not detected Coronavirus OC43 PCR Not detected COVID-19 PCR Not detected Human Metapneumovirus PCR Not detected Human Rhinovirus/Enterovirus PCR Not detected Influenza A PCR Not detected Influenza B PCR Not detected Parainfluenza Virus 1 PCR Not detected Parainfluenza Virus 2 PCR Not detected Parainfluenza Virus 3 PCR Not detected Parainfluenza Virus 4 PCR Not detected Respiratory Syncytial Virus PCR Not detected Bordetella parapertussis PCR Not detected Bordetella pertussis PCR Not detected Chlamydia pneumoniae PCR Not detected Mycoplasma pneumoniae PCR Not detected Narrative: This nucleic amplification assay has received FDA authorization via the [employer]. CULTURE BLOOD [[id number]] (Normal) Collected: 06/30/22 1625 Lab Status: Final result Specimen: Blood Peripheral Updated: 07/05/22 1901 Culture No growth day 5 CULTURE BLOOD [[id number]] (Normal) Collected: 06/30/22 1611 Lab Status: Final result Specimen: Blood Peripheral Updated: 07/05/22 1901 Culture No growth day 5 CULTURE MRSA [[id number]] (Abnormal) Collected: 06/29/22 1242 Lab Status: Final result Specimen: Microbiology from Nasal Updated: 06/30/222138 Culture Growth of Staphylococcus aureus methicillin-resistant (MRSA) Narrative: Methicillin-resistant Staphylococci (MRSA) are resistant to all currently available beta-lactam antibiotics with the exception of the newer cephalosporins with anti-MRSA activity. Contact precautionsrequired. IMAGING No results found. Medications ??? 0.9% NaCl 3 mL Intracatheter q8h ??? albuterol HFA 4 puff Inhalation q12h ??? artificial tears Each Eye q8h ??? aspirin 81 mg Enteral Tube QDAY ??? atorvastatin 40 mg Enteral Tube QDAY ??? chlorhexidine 15 mL Mouth/Throat BID ??? cloBAZam 20 mg Enteral Tube BID ??? divalproex sprinkle 500 mg Enteral Tube Every 6 Hours (03,09,15,21) ??? enoxaparin 40 mg Subcutaneous QDAY ??? famotidine 20 mg Enteral Tube QDAY ??? lacosamide 200 mg Enteral Tube BID ??? levETIRAcetam 1,000 mg Enteral Tube BID ??? oxybutynin 5 mg Enteral Tube BID ??? polyethylene glycol 3350 17 g Enteral Tube QDAY ??? senna-docusate 1 tablet Enteral Tube BID ??? sodium chloride (Inhalant) 4 mL Inhalation BID ??? tamsulosin 0.4 mg Oral QDAY Continuous Medications PRN Medications ??? SALINE LOCK, INSERT AND MAINTAIN AND 0.9% NaCl AND 0.9% NaCl ??? acetaminophen ??? artificial tears ??? bisacodyl ??? EPINEPHrine-NaCl 0.9% ??? fentaNYL (PF) ??? lidocaine 1 % - EPINEPHrine [id number] ASSESSMENT: Epilepsy, unspecified, not intractable, without status epilepticus ([facility]) POA: Yes Muscle weakness (generalized) POA: Yes Hemiplegia and 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- dominant side ([facility]) POA: Yes Acute encephalopathy POA: Yes Sepsis without acute organ dysfunction ([facility]) POA: Yes PAD (peripheral artery disease) ([facility]) POA: Yes History of stroke POA: Yes Protein-calorie malnutrition, unspecified severity ([facility]) POA: Yes Aspiration into airway POA: Yes Leukocytosis, unspecified type POA: Yes Tachycardia POA: Yes Hypoxia POA: Yes Acute respiratory failure with hypoxia ([facility]) POA: Yes Pneumonia of right lower lobe due to infectious organism POA: Yes Atelectasis, right POA: Yes Contrast-induced nephropathy POA: Yes Zenker diverticula POA: Yes Hypernatremia POA: No Hyperkalemia POA: No PLAN: Neurological -Encephalopathy related to metabolic, hypoxia, seizure disorder, ICU delirium, Brain infarction -On depakote 500 mg q6h, Clobazam 20 mg bid, Keppra 500mg bid and Vimpat 200 mg BID -Continue ASA -Lipitor 40 mg daily -Aspiration precautions -Seizure precautions -Appreciate neurology recommendations Cardiovascular: -Continue ASA -Keep MAP >65 Pulmonary: -Did will with PSV. Will attempt trach collar today -Has complicated 7 days of antibiotics. 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 Will monitor Na daily with CMP. -Continue Flomax 0.4mg daily -Oxybutynin 5 mg bid -Electrolytes: Monitor chem 7 and Mg every 24 hours and replace Mg if less than 1.8 or if K < 3.5 -Urinary retention: Removed jensen OVN. Will straight cath as needed and replace jensen if continue to retain urine Endocrine: -Sliding scale to keep between glucose between 140 - 180 I.D.: -Completed Zosyn for 7 days Heme/Onc: Transfusion Protocol: Hb < 7, Plt < 10 LDA: Peripheral IV Anterior;Left;Upper Arm (Active) Placement Date/Time: 07/10/22199 Orientation: Anterior;Left;Upper Location: Arm Name/Credentials of person who placed: Kandi GoodsonWesley IV Catheter Size: 20 Gauge Technique: Ultrasound Guidance Number of days: 4 Enteral - Percutaneous Endoscopic Gastrostomy Abdomen;Midline;Upper (Active) Placement Date/Time: 03/25/221653 Name/Credentials of person who placed: Jolynn Ann MD Type: Percutaneous Endoscopic Gastrostomy Tube Location: Abdomen;Midline;Upper Size (FR): 24 Procedure Tolerance: Well Number of days: 111 ETT Endotracheal Tube 8 MM (Active) Placement Date/Time: 07/05/222127 Person who placed: Shannon Nino MD Mask Ventilation: easy mask Induction: Rapid Sequence Blade Type: King Blade Size: 4 Support Device: Video Laryngoscope Device: Endotracheal Tube Location: Oral Tube s... Number of days: 8 Other Wound Anterior;Lower;Proximal;Right Arm (Active) Date/Time: 06/29/221999 Orientation: Anterior;Lower;Proximal;Right Location: Arm Number of days: 14 Other Wound Left Ear (Active) Date/Time: 07/03/221839 Orientation: Left Location: Ear Number of days: 10 Other Wound Right Ear (Active) Date/Time: 07/03/221839 Orientation: Right Location: Ear Number of days: 10 Prophylaxis: DVT prophylaxis: [x] Lovenox 40mg , [] Lovenox 30mg, [] Sq Heparin GI prophylaxis: Pepcid Aspiration precautions with elevation of HOB by 30 degrees. Fluids: None. On TF. Diet: DIETARY NUTRITION SUPPLEMENTS DIET NPO Except: NO EXCEPTIONS DIET TUBE FEEDING CONTINUOUS Activity: Ad Merline Disposition: ICU Monitoring Code: Full Code Raisa Vee M.D. Pulmonary / Critical Care Fellow Division of Pulmonary, Critical Care, & Sleep Medicine [facility] 07/19/22 MOTIVE PAINT TECHNICIAN Associated attestation - Juan Diego Garcia MD - 07/19/2022 7:00 PM AUTOMOTIVE PAINT TECHNICIAN I have seen, examined and discussed the patient with the fellow and I agree with the the findings and plan of care/recommendations as documented by the fellow. Date of service: 07/19/2022 Juan Diego Garcia M.D. Customer Service Dispatcher of Internal Medicine Division of Pulmonary, Critical Care and Sleep Medicine [facility] * Saloni Payan OT - 07/19/2022 1:46 PM CST [facility] Department of Physical Medicine & Rehabilitation Progress Note Patient: Mojgan Tabor Med Record Number: [id number] Date of : 1960 Age: [age] year old 07/19/22 1346 Missed Visit Missed Visit Bedrest AM - Most recent activity order continues to be bedrest. Discussed with MICU 3 at rounds this AM the need for updated activity order which has been requested multiple times since last . MD stated he will update activity order. 1346 addendum - Activity order still not updated at this time. MOTIVE PAINT TECHNICIAN * Svetlana Lewis MD - 07/19/2022 8:04 AM CST Otolaryngology Progress Note 07/19/2022 SUBJECTIVE: 4 Days Post-Op s/p trach and Zenker's repair NAEON, VSS Mechanically ventilated through trach Not yet mentally appropriate for MBS No concerns from nursing VITALS: Temp (30hrs) Max:99 ??F (37.2 ??C) Vitals: 07/19/22 0400 07/19/22 0419 07/19/22 0500 07/19/22 0600 BP: 130/78 113/67 116/67 Pulse: 93 95 93 96 Resp: 14 12 Temp: 98.6 ??F (37 ??C) SpO2: 97% 100% 100% 99% Weight: 65.5 kg (144 lb 6.4 oz) Height: Intake/Output Summary (Last 24 hours) at 07/19/2022 0804 Last data filed at 07/19/2022 0400 Gross per 24 hour Intake 1617 ml Output 2900 ml Net -1283 ml MEDICATIONS FOR CURRENT ENCOUNTER: SCHEDULED MEDICATIONS: 0.9% NaCl injection 3 mL, Intracatheter, q8h albuterol HFA (Proventil; Ventolin; Proair) 108 (90 Base) MCG/ACT inhaler 4 puff, Inhalation, q12h artificial tears ophthalmic ointment, Each Eye, q8h aspirin chew tablet 81 mg, Enteral Tube, QDAY atorvastatin (Lipitor) tablet 40 mg, Enteral Tube, QDAY chlorhexidine (Peridex) 0.12 % oral solution 15 mL, Mouth/Throat, BID cloBAZam (Onfi) tablet 20 mg, Enteral Tube, BID divalproex sprinkle (Depakote Sprinkle) capsule 500 mg, Enteral Tube, Every 6 Hours (03,09,15,21) enoxaparin (Lovenox) injection 40 mg, Subcutaneous, QDAY famotidine (Pepcid) tablet 20 mg, Enteral Tube, QDAY lacosamide (Vimpat) tablet 200 mg, Enteral Tube, BID levETIRAcetam (Keppra) tablet 1,000 mg, Enteral Tube, BID oxybutynin (Ditropan) tablet 5 mg, Enteral Tube, BID polyethylene glycol 3350 (Miralax) packet 17 g, Enteral Tube, QDAY senna-docusate (Senokot-S) tablet 1 tablet, Enteral Tube, BID sodium chloride (Inhalant) 7 % nebulizer solution 4 mL, Inhalation, BID ?? tamsulosin (Flomax) capsule 0.4 mg, Oral, QDAY ?? CONTINUOUS MEDICATIONS: PRN MEDICATIONS: 0.9% NaCl injection 1-10 mL, Intracatheter, PRN acetaminophen (Tylenol) tablet 500 mg, Enteral Tube, q4h PRN artificial tears ophthalmic solution 1 drop, Each Eye, TID PRN bisacodyl (Dulcolax) suppository 10 mg, Rectal, QDAY PRN EPINEPHrine-NaCl 0.9% syringe, , PRN fentaNYL (PF) (Sublimaze) injection 25 mcg, Intravenous, q1h PRN ?? lidocaine 1% (Xylocaine-MPF) - EPINEPHrine 1:100,000 injection, , PRN PHYSICAL EXAM: Gen: no acute distress, resting comfortably. HEENT: trach in place 6-0 cuffed Shiley, left neck incision c/d/i no fluctuance or significant edema. Mild blood-tinged secreations Pulm: mechanically ventilated 30%/ 5 PEEP ASSESSMENT: Mojgan Tabor is a 62 year old male with a PMH significant for R. Occipital stroke (2015), head injury, seizures, Alzheimer's, Right BKA, refractory epilepsy, dysphasia w/PEG tube placement on 03/25/22 who is seen in consultation for Zenker's diverticulum. Recently seen outpatient with plans for elective surgery for his known Zenker's diverticulum, however he is again admitted with aspiration PNA.Now s/p transcervical Zenker's diverticulectomy, tracheostomy 07/15/22. PLAN: - Please have trach obturator in bag and prominently displayed at head of bed - Please have sign in room/above bed stating: ENT only to cut trach sutures, change trach ties, change/downsize trach - Please have an extra same size trach tube (6-0 cuffed), one-size small trach tube (4-0 cuffed), trach ties, and suture removal kit at bedside - Routine trach care, ok to suction and clean/remove/exchange inner cannula - plan for possible MBS when neurologically appropriate with HOSPITAL PHARMACY TECHNICIAN Marcella Thomas. ENT will coordinate. - Continue NPO until swallowing study completed OK for tube feeds Svetlana Lewis MD Otolaryngology and Head and Neck Surgery 07/19/22 MOTIVE PAINT TECHNICIAN * Mandi Ray, PT - 07/19/2022 7:54 AM CST [facility] Department of Physical Medicine & Rehabilitation Progress Note Patient: Mojgan Tabor Med Record Number: [id number] Date of : 1960 Age: [age] year old 07/19/22 0740 Missed Visit Missed Visit Bedrest Please update activity orders as appropriate to initiate physical therapy evaluation and POC. MOTIVE PAINT TECHNICIAN * Melany Tran RD/NOLAN - 07/19/2022 7:36 AM CST Nutrition Re-Assessment Brief Synopsis: Patient is at Nutrition Risk; Specific criteria can be found in assessment below Nutrition Plan: NPO Vital AF 1.2 Bruno at goal of 50 ml/hr. Provides 1440 kcal, 90 g protein, 133 g carbohydrate, and 973 ml free water +50 ml q 6 hrs free water flush or per MD if on IVF +100 ml q4 hrs free water flush or per MD if not on additional fluid Recommendations to Physician: See above Comments: Pt scheduled for reassessment. Pt remains intubated and receiving TF at goal rate above. Pt s/p transcervical Zenker's diverticulectomy and tracheostomy 07/15/22. x1 stool in last x24 hours.On Protonix and miralax. Renal electrolytes remain wnl. RD will continue to follow. Assessment: Med/Surg History and Clinical Diagnoses: 62 year old male with PMH of seizures, stroke w/residual Lsided deficits, dementia, Zenker diverticulum, dysphagia, HTN, BPH, PAD s/p L [facility] Diet order accuracy Current diet order: NPO Current tube feeding order: VAF @50ml/hr Nutrition recommendation: alter/change nutrition order P.O.Intake for the past 48 hrs:No data recorded Food Allergies: No known food allergies GI Concerns: None Chewing/Swallowing: Other (Comment) (intubated) Pain affecting intake: No Admission weight: Weight: 47.6 kg (105 lb) (06/27/22 2131) Recent Weights/Methods 07/06/2022 0400 07/07/2022 0400 07/10/2022 0400 07/12/2022 0400 07/16/2022 0400 07/17/2022 0400 07/18/2022 0347 07/19/2022 0400 Weight: 57.5 kg (126 lb 12.2 oz) 60.5 kg (133 lb 6.1 oz) 62.5 kg (137 lb 12.6 oz) 62 kg (136 lb 11 oz) 66.5 kg (146 lb 9.7 oz) 67 kg (147 lb 11.3 oz) 65 kg (143 lb 4.8 oz) 65.5 kg (144 lb 6.4 oz) Weight Method (Utilize Scales): Bedscale Bedscale Bedscale Bedscale Bedscale Bedscale Bedscale Bedscale BMI: Body mass index is 19.05 kg/m??. BMI Range: Normal Wt Comments: reviewed, weight trending up Height: 185.4 cm (6' 1 ) IBW/lb (Calculated) Male: 184 , Laboratory values reviewed. Recent Labs Component Name 07/19/22 0322 07/18/22 0344 07/17/22 0412 07/01/22 1634 06/30/22 1039 06/29/22 0709 06/27/22 2215 06/21/22 1926 BUN 21 18 16 - 7 - 17 14 CREATININE 0.86 0.94 1.05 - 0.58* - 0.78 0.58* NA 140 140 141 - 140 - 142 142 POTASSIUM 3.9 3.6 3.5 - 4.0 - 4.4 4.5 CL 108* 109* 108* - 107 - 101 106 CO2 25 25 25 - 24 - 26 29 GLUCOSE 109 107 110 - 115 - 98 116* CALCIUM 8.9 8.8 8.5 - 9.5 - 10.3* 10.7* PROT - - - - 6.2 - 8.3 8.3 ALB - - - - 2.2* - 3.4 3.2* TBILI - - - - 0.3 - 0.3 0.3 ALKPHOS - - - - 65 - 95 88 ALT - - - - 5 - 6 10 AST - - - - 13 - 19 19 ANIONGAP 11 10 12 - 13 - 19* 12 BCR 24* 19 15 - 12 - 24* OSMOLALITY 294 292 294 - 289 - 296 295 AGRATIO - - - - 0.6* - 0.7* 0.6* EGFR >90 >90 81* - >90 - >90 >90 - = values in this interval not displayed. Medications noted. Current Facility-Administered Medications Medication ??? 0.9% NaCl injection 3 mL And ??? 0.9% NaCl injection 1-10 mL ??? acetaminophen (Tylenol) tablet 500 mg ??? albuterol HFA (Proventil; Ventolin; Proair) 108 (90 Base) MCG/ACT inhaler 4 puff ??? artificial tears ophthalmic ointment ??? artificial tears ophthalmic solution 1 drop ??? aspirin chew tablet 81 mg ??? atorvastatin (Lipitor) tablet 40 mg ??? bisacodyl (Dulcolax) suppository 10 mg ??? chlorhexidine (Peridex) 0.12 % oral solution 15 mL ??? cloBAZam (Onfi) tablet 20 mg ??? divalproex sprinkle (Depakote Sprinkle) capsule 500 mg ??? enoxaparin (Lovenox) injection 40 mg ??? EPINEPHrine-NaCl 0.9% syringe ??? famotidine (Pepcid) tablet 20 mg ??? fentaNYL (PF) (Sublimaze) injection 25 mcg ??? lacosamide (Vimpat) tablet 200 mg ??? levETIRAcetam (Keppra) tablet 1,000 mg ??? lidocaine 1% (Xylocaine-MPF) - EPINEPHrine 1:100,000 injection ??? oxybutynin (Ditropan) tablet 5 mg ??? polyethylene glycol 3350 (Miralax) packet 17 g ??? senna-docusate (Senokot-S) tablet 1 tablet ??? sodium chloride (Inhalant) 7 % nebulizer solution 4 mL ??? tamsulosin (Flomax) capsule 0.4 mg Skin/Wound: Exceptions (right arm) Estimated Energy Needs: KCAL: 3596-1623 (20-25kcal/kg of ABW) Protein (g): 70-87 (1.2-1.5gm/kg of ABW) Fluid (ml): 1 ml/kcal Needs based on: Kcal/kg- (Comment) (58kg of ABW) Recommended Access Route: TF Education needed: None Education Provided: Not appropriate Nutrition Care Process (1) Nutrition Diagnostic Statement: Inadequate oral intake related to:: decreased ability to consume or tolerate food and/or fluids due to illness as evidenced by:: need for parenteral or enteral intake to supplement oral intake Nutrition Diagnostic Statement Progress: Nutrition problem continues Nutrition Intervention: Enteral nutrition: Monitoring: GI, TF, WT, labs, medications Evaluation: Nutrition Goal: Enteral/Parenteral Nutrition prescription will be consistent with estimated nutrient needs Nutrition Goal Timeframe: Ongoing Nutrition Goal Progress: Continue with current goal Ascom [id number] MOTIVE PAINT TECHNICIAN * Lindsay Herrera, ATTIC FANS MECHANIC - 07/18/2022 3:50 PM CST Pt will be monitored for secretions and will be suctioned as needed to maintain patent airway. MOTIVE PAINT TECHNICIAN * Chely Alves, PT - 07/18/2022 11:48 AM CST [facility] Department of Physical Medicine & Rehabilitation Progress Note Patient: Mojgan Tabor Med Record Number: [id number] Date of : 1960 Age: [age] year old 07/18/22 1100 Missed Visit Missed Visit Bedrest;Other (Comment) Please update activity orders prior to mobilization with therapy. Thank you MOTIVE PAINT TECHNICIAN * Raisa Vee MD - 07/18/2022 10:47 AM CST Images from the original note were not included. MEDICAL ICU Progress Note 07/18/2022 at 10:48 AM Admit Date: 06/27/2022 LOS: 20 days Brief Hospital Course: Mojgan Tabor is a 62 year old male??w/ PMHx significant for CVA with residual L sided defects, history of seizure disorder, dementia, dysphagia with recurrent aspiration (PEG-dependent), Zenker diverticulum, hypertension, BPH, PAD s/p L AKA d/t non-healing foot wound (02/2022), who initially presented [facility] on 06/28 with complaints of hypoxia. The patient is a shelter resident at [facility]. Imaging in ED showed likely aspiration pneumonia, for which he was started on antibiotics. ENT was consulted for possible surgical intervention with his Zenker diverticulum. On 07/02 the patient was noted to have R hemithorax opacification with mediastinal shift. Pulmonary Medicine was consulted on 07/03, and due to recurring events of mucus plugging with desaturations, the patient was transferred to the ICU for further evaluation and management. Upon arrival, patient underwent awake bronchoscopy with suction of mucus plugs and had initial radiographic improvement and also in oxygenation. ICU course was c/b atelectasis of R lung with haziness of LLL for which patient underwentintubation and bronchoscopy on 07/06/2022 with improved chest xray post bronchoscopy but with persistently collapsed RLL and bedside ultrasound with collapsed RLL with curtain sign on the right hemithorax and small Effusion on the Right; IPV initiated; Continuous EEG started by neurology. Patient wasunable to be weaned off the ventilator due to neurological dysfunction, increased secretions. Plan was discussed with ENT with tentative plan of zenker's diverticulum removal on 07/15/2021. Subjective: Interval History: -Patient is s/p transcervical Zenker's diverticulectomy, tracheostomy 07/15/22. Seen and examined atbeside. Patient still requiring significant encouragement to breathe. Patient is minimally responding to commands but still very weak. -Plan for PSV today and ASV 60% tonight. OBJECTIVE: Temp: [98.1 ??F (36.7 ??C)-99 ??F (37.2 ??C)] 98.9 ??F (37.2 ??C) Pulse: [80-112] 86 Resp: [14-20] 20 BP: (103-147)/(65-79) 121/75 Arterial Line BP #1: (86-166)/(49-80) 149/73 O2 %: [30 %] 30 % Intake/Output Summary (Last 24 hours) at 07/18/2022 1048 Last data filed at 07/18/2022 0348 Gross per 24 hour Intake 1721 ml Output 820 ml Net 901 ml Physical Exam: General: Lying in bed, Elderly, Tracheostomy site in place. Trach to vent on PSV HEENT: PERRL, EOMI, MMM, No JVD, OG/ET Tube in place Lungs: CTAB no w/r/r Heart: RRR no m/r/g Abdomen: S/NT/ND/BS x4, Extremity: No Edema, Pulses 2+ Skin: Warm and dry. No rashes or bruising noted. Neurological: Trach to vent. Moves all extremities. Requiring significant stimulation to assist breathing on PSV. Intake/Output Summary (Last 24 hours) at 07/18/2022 1048 Last data filed at 07/18/2022 0348 Gross per 24 hour Intake 1721 ml Output 820 ml Net 901 ml Vitals Pulse: 86 SpO2: 99 % Ventilator Information Ventilator ID: [id number] Ventilation Rate SET VENTILATION RATE (bpm): 10 bpm OBSERVED VENTILATION RATE (bpm): 20 bpm Insp Time (%): 30 % Insp Time (sec): 1.13 sec Insp Flow (L/Min): 60 l/Min Insp rise/Ramp (sec): 50 Sec ETS (%): 25 % % Row Cycle: 25 % I:E Ratio: 1:2 Actual I:E Ratio: 1:5.8 f/VT (RSBI): 42 Volumes SET TIDAL VOLUME (mL): 0 ML IDEAL BODY WEIGHT (kg): 69 kg EXHALED TIDAL VOLUME (ml): 315 ml Spontaneous Tidal Volume (mL): 388 ML Observed Minute Ventilation (L/m): 5.9 Liters/Minute Ventilator Pressures OBSERVED PEAK INSPIRATORY PRESSURE (cm H2O): 15 cm H2O Pressure Support: 8 cm H2O PLATEAU PRESSURE (cm H2O): 16 cm H2O Mean Airway Pressure (cm H2O): 7.3 cm H2O PEEP/CPAP: 5 cm H20 Actual PEEP (Intrinsic): 5 cm H20 Safety & Alarms Airway Emergency Supplies Available: Resuscitation Bag with PEEP Valve;Appropriate Size Mask Humidity Temp (C): 37 Celsius Humidifier alarm [...] Pulmonary Suctioning Suctioned?: Yes Suction Mode: Oral;Trach Secretion Consistency: Thick Secretion Color: Clear Secretions Amount: Small Hyperoxygenated prior to suctioning?: Yes Labs: CBC: Recent Labs Component Name 07/18/22 03407/17/22 04107/16/22518 WBC 8.6 8.9 9.9 HGB 7.2* 7.4* 7.7* BMP: Recent Labs Component Name 07/18/2234307/17/2241107/16/22 05 NA 140 141 140 CL 109* 108* 108* CO2 25 25 22 BUN 18 16 22 CREATININE 0.94 1.05 1.21* CALCIUM 8.8 8.5 8.8 MAGNESIUM 1.7 1.8 1.6 PHOS 2.9 3.5 2.1* LFT: Recent Labs Component Name 06/30/22 1039 06/27/22221406/21/22 1926 PROT 6.2 8.3 8.3 ALB 2.2* 3.4 3.2* ALKPHOS 65 95 88 AST 13 19 19 ALT 5 6 10 Coagulation: Recent Labs Component Name 06/27/22221405/11/22 1309 03/11/22 1059 PT 12.8 13.5 15.4* INR 1.0 1.0 1.2 Cardiac markers: Recent Labs Component Name 07/11/22 0040 07/01/22 1634 06/28/22 0141 06/27/22221405/30/22 1750 03/08/22 1455 12/31/21 0412 CKTOTAL 49 42 - - - - 77 TROPONINI - - <0.010 <0.010 <0.010 - - - = values in this interval not displayed. MICROBIOLOGY Microbiology Results (Displays last 21 days for this encounter ONLY) Procedure Component Value - Date/Time CULTURE BRONCHIAL WASHING+GRAM STAIN [[id number]] Collected: 07/05/222230 Lab Status: Final result Specimen: Microbiology from Bronchial Washings Updated: 07/07/22 1552 Culture No growth Gram Stain Rare Polymorphonuclear cells Rare Squamous epithelial cells No organisms seen CULTURE URINE [[id number]] Collected: 07/04/22 0145 Lab Status: Final result Specimen: Urine Clean Catch Updated: 07/05/22 0822 Culture Urine 10,000-50,000 CFU/mL urogenital heidi CULTURE BLOOD FUNGUS [[id number]] (Normal) Collected: 06/30/222044 Lab Status: Preliminary result Specimen: Blood Peripheral Updated: 07/12/22 0822 Culture No fungus isolated RESPIRATORY PANEL WITH SARS-COV-2 BY PCR (ST) [[id number]] (Normal) Collected: 06/30/221951 Lab Status: Final result Specimen: Microbiology from Nasopharyngeal Updated: 07/01/22 0014 Adenovirus PCR Not detected Coronavirus 229E PCR Not detected Coronavirus HKU1 PCR Not detected Coronavirus NL63 PCR Not detected Coronavirus OC43 PCR Not detected COVID-19 PCR Not detected Human Metapneumovirus PCR Not detected Human Rhinovirus/Enterovirus PCR Not detected Influenza A PCR Not detected Influenza B PCR Not detected Parainfluenza Virus 1 PCR Not detected Parainfluenza Virus 2 PCR Not detected Parainfluenza Virus 3 PCR Not detected Parainfluenza Virus 4 PCR Not detected Respiratory Syncytial Virus PCR Not detected Bordetella parapertussis PCR Not detected Bordetella pertussis PCR Not detected Chlamydia pneumoniae PCR Not detected Mycoplasma pneumoniae PCR Not detected Narrative: This nucleic amplification assay has received FDA authorization via the [employer]. CULTURE BLOOD [[id number]] (Normal) Collected: 06/30/22 1625 Lab Status: Final result Specimen: Blood Peripheral Updated: 07/05/22 1901 Culture No growth day 5 CULTURE BLOOD [[id number]] (Normal) Collected: 06/30/22 1611 Lab Status: Final result Specimen: Blood Peripheral Updated: 07/05/22 1901 Culture No growth day 5 CULTURE MRSA [[id number]] (Abnormal) Collected: 06/29/22 1242 Lab Status: Final result Specimen: Microbiology from Nasal Updated: 06/30/22 2139 Culture Growth of Staphylococcus aureus methicillin-resistant (MRSA) Narrative: Methicillin-resistant Staphylococci (MRSA) are resistant to all currently available beta-lactam antibiotics with the exception of the newer cephalosporins with anti-MRSA activity. Contact precautionsrequired. LEGIONELLA ANTIGEN URINE [[id number]] (Normal) Collected: 06/28/22 0348 Lab Status: Final result Specimen: Urine Updated: 06/28/22 1005 Legionella Antigen Urine Negative Narrative: This assay detects Legionella pneumophila serogroup one (1) antigen. A negative test result does not rule out the possibility of Legionella infection due to other serogroups or species of Legionella.A positive result may indicate a recent or remote infection with serogroup 1. SARS-COV-2 (COVID-19) FLU A/B RSV PCR RAPID [[id number]] (Normal) Collected: 06/27/22 2223 Lab Status: Final result Specimen: Microbiology from Nasopharyngeal Updated: 06/27/22 2310 COVID-19 PCR Not detected Influenza A PCR Not detected Influenza B PCR Not detected RSV PCR Not detected Narrative: This nucleic acid amplification assay has been authorized by the Food and Drug administration (FDA)under an Emergency??Use Authorization (EUA).?? This test is only authorized for the duration of time the declaration that circumstances exist justifying the authorization of emergency use of in vitrodiagnostic tests for detection of SARS-CoV-2 virus and/or diagnosis of COVID-19 infection under section 564(b)(1) of the Act, 21 U.S.C 360bbb-3 (b)(1), unless the authorization is terminated or revoked sooner. Fact Sheets for this EUA assay are available upon request. CULTURE BLOOD [[id number]] (Normal) Collected: 06/27/222214 Lab Status: Final result Specimen: Blood Peripheral Updated: 07/03/22199 Culture No growth day 5 CULTURE BLOOD [[id number]] (Normal) Collected: 06/27/222199 Lab Status: Final result Specimen: Blood Peripheral Updated: 07/03/22199 Culture No growth day 5 IMAGING No results found. Medications ??? 0.9% NaCl 3 mL Intracatheter q8h ??? albuterol 2.5 mg Inhalation q12h ??? artificial tears Each Eye q8h ??? aspirin 81 mg Enteral Tube QDAY ??? atorvastatin 40 mg Enteral Tube QDAY ??? chlorhexidine 15 mL Mouth/Throat BID ??? cloBAZam 20 mg Enteral Tube BID ??? divalproex sprinkle 500 mg Enteral Tube Every 6 Hours (03,09,15,21) ??? enoxaparin 40 mg Subcutaneous QDAY ??? famotidine 20 mg Enteral Tube QDAY ??? lacosamide 200 mg Enteral Tube BID ??? levETIRAcetam 1,000 mg Enteral Tube BID ??? oxybutynin 5 mg Enteral Tube BID ??? polyethylene glycol 3350 17 g Enteral Tube QDAY ??? senna-docusate 1 tablet Enteral Tube BID ??? sodium chloride (Inhalant) 4 mL Inhalation BID ??? tamsulosin 0.4 mg Oral QDAY Continuous Medications PRN Medications ??? SALINE LOCK, INSERT AND MAINTAIN AND 0.9% NaCl AND 0.9% NaCl ??? acetaminophen ??? artificial tears ??? bisacodyl ??? EPINEPHrine-NaCl 0.9% ??? fentaNYL (PF) ??? lidocaine 1 % - EPINEPHrine [id number] ASSESSMENT: Epilepsy, unspecified, not intractable, without status epilepticus (CMS/HCC) POA: Yes Muscle weakness (generalized) POA: Yes Hemiplegia and 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- dominant side (CMS/HCC) POA: Yes Acute encephalopathy POA: Yes Sepsis without acute organ dysfunction (CMS/HCC) POA: Yes PAD (peripheral artery disease) ([facility]/HCC) POA: Yes History of stroke POA: Yes Protein-calorie malnutrition, unspecified severity (CMS/HCC) POA: Yes Aspiration into airway POA: Yes Leukocytosis, unspecified type POA: Yes Tachycardia POA: Yes Hypoxia POA: Yes Acute respiratory failure with hypoxia ([facility]/HCC) POA: Yes Pneumonia of right lower lobe due to infectious organism POA: Yes Atelectasis, right POA: Yes Contrast-induced nephropathy POA: Yes Zenker diverticula POA: Yes Hypernatremia POA: No Hyperkalemia POA: No PLAN: Neurological -Encephalopathy related to metabolic, hypoxia, seizure disorder, ICU delirium, Brain infarction -On depakote 500 mg q6h, Clobazam 20 mg bid, Keppra 500mg bid and Vimpat 200 mg BID -Continue ASA -Lipitor 40 mg daily -Aspiration precautions -Seizure precautions -Appreciate neurology recommendations Cardiovascular: -Continue ASA -Keep MAP >65 Pulmonary: -Trach to vent attempted PSV today. Will place back on ASV 60% at night. -Has complicated 7 days of antibiotics. 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 Will monitor Na daily with CMP. -Continue Flomax 0.4mg daily -Oxybutynin 5 mg bid -Electrolytes: Monitor chem 7 and Mg every 24 hours and replace Mg if less than1.8 or if K < 3.5 -Urinary retention: Jensen in place (placed on 07/15/22) Endocrine: -Sliding scale to keep between glucose between 140 - 180 I.D.: -Completed Zosyn for 7 days Heme/Onc: Transfusion Protocol: Hb < 7, Plt < 10 LDA: Peripheral IV Anterior;Left;Upper Arm (Active) Placement Date/Time: 07/10/22 0200 Orientation: Anterior;Left;Upper Location: Arm Name/Credentials of person who placed: Kandi GoodsonWesley IV Catheter Size: 20 Gauge Technique: Ultrasound Guidance Number of days: 4 Enteral - Percutaneous Endoscopic Gastrostomy Abdomen;Midline;Upper (Active) Placement Date/Time: 03/25/22 1654 Name/Credentials of person who placed: Jolynn Ann MD Type: Percutaneous Endoscopic Gastrostomy Tube Location: Abdomen;Midline;Upper Size (FR): 24 Procedure Tolerance: Well Number of days: 111 ETT Endotracheal Tube 8 MM (Active) Placement Date/Time: 07/05/222127 Person who placed: Shannon Nino MD Mask Ventilation: easy mask Induction: Rapid Sequence Blade Type: King Blade Size: 4 Support Device: Video Laryngoscope Device: Endotracheal Tube Location: Oral Tube s... Number of days: 8 Other Wound Anterior;Lower;Proximal;Right Arm (Active) Date/Time: 06/29/221999 Orientation: Anterior;Lower;Proximal;Right Location: Arm Number of days: 14 Other Wound Left Ear (Active) Date/Time: 07/03/221839 Orientation: Left Location: Ear Number of days: 10 Other Wound Right Ear (Active) Date/Time: 07/03/221839 Orientation: Right Location: Ear Number of days: 10 Prophylaxis: DVT prophylaxis: [x] Lovenox 40mg , [] Lovenox 30mg, [] Sq Heparin GI prophylaxis: Pepcid Aspiration precautions with elevation of HOB by 30 degrees. Fluids: None. On TF. Diet: DIETARY NUTRITION SUPPLEMENTS DIET NPO Except: NO EXCEPTIONS DIET TUBE FEEDING CONTINUOUS Activity: Ad Merline Disposition: ICU Monitoring Code: Full Code Raisa Vee M.D. Pulmonary / Critical Care Fellow Division of Pulmonary, Critical Care, & Sleep Medicine [facility] 07/18/22 MOTIVE PAINT TECHNICIAN Associated attestation - Artemio Abarca MD - 07/18/2022 7:37 PM AUTOMOTIVE PAINT TECHNICIAN I saw and evaluated the patient. I reviewed the resident???s note and agree with findings and plan as documented in the resident???s note Artemio Abarca MD Division of Pulmonary, Critical Care, & Sleep Medicine [facility] P: [phone] 07/18/2022 , 7:37 PM * Jhoana Caro MD - 07/18/2022 8:50 AM CST Otolaryngology Progress Note 07/18/2022 SUBJECTIVE: 3 Days Post-Op s/p trach and Zenker's repair NAEON, VSS Mechanically ventilated Not yet mentally appropriate for MBS No concerns from nursing VITALS: Temp (30hrs) Max:99 ??F (37.2 ??C) Vitals: 07/18/22 0400 07/18/22 0444 07/18/22 0500 07/18/22 0600 BP: 133/77 147/79 127/78 Pulse: 80 86 86 86 Resp: 18 14 14 Temp: 98.9 ??F (37.2 ??C) SpO2: 97% 99% 98% 98% Weight: Height: Intake/Output Summary (Last 24 hours) at 07/18/2022 0850 Last data filed at 07/18/2022 0348 Gross per 24 hour Intake 2081 ml Output 1220 ml Net 861 ml MEDICATIONS FOR CURRENT ENCOUNTER: SCHEDULED MEDICATIONS: 0.9% NaCl injection 3 mL, Intracatheter, q8h albuterol (Proventil;Ventolin) (5 MG/ML) 0.5% nebulizer solution 2.5 mg, Inhalation, q12h artificial tears ophthalmic ointment, Each Eye, q8h aspirin chew tablet 81 mg, Enteral Tube, QDAY atorvastatin (Lipitor) tablet 40 mg, Enteral Tube, QDAY chlorhexidine (Peridex) 0.12 % oral solution 15 mL, Mouth/Throat, BID cloBAZam (Onfi) tablet 20 mg, Enteral Tube, BID divalproex sprinkle (Depakote Sprinkle) capsule 500 mg, Enteral Tube, Every 6 Hours (03,09,15,21) enoxaparin (Lovenox) injection 40 mg, Subcutaneous, QDAY famotidine (Pepcid) tablet 20 mg, Enteral Tube, QDAY lacosamide (Vimpat) tablet 200 mg, Enteral Tube, BID levETIRAcetam (Keppra) tablet 1,000 mg, Enteral Tube, BID oxybutynin (Ditropan) tablet 5 mg, Enteral Tube, BID polyethylene glycol 3350 (Miralax) packet 17 g, Enteral Tube, QDAY senna-docusate (Senokot-S) tablet 1 tablet, Enteral Tube, BID sodium chloride (Inhalant) 7 % nebulizer solution 4 mL, Inhalation, BID ?? tamsulosin (Flomax) capsule 0.4 mg, Oral, QDAY ?? CONTINUOUS MEDICATIONS: PRN MEDICATIONS: 0.9% NaCl injection 1-10 mL, Intracatheter, PRN acetaminophen (Tylenol) tablet 500 mg, Enteral Tube, q4h PRN artificial tears ophthalmic solution 1 drop, Each Eye, TID PRN bisacodyl (Dulcolax) suppository 10 mg, Rectal, QDAY PRN EPINEPHrine-NaCl 0.9% syringe, , PRN fentaNYL (PF) (Sublimaze) injection 25 mcg, Intravenous, q1h PRN ?? lidocaine 1% (Xylocaine-MPF) - EPINEPHrine 1:100,000 injection, , PRN PHYSICAL EXAM: Gen: no acute distress, resting comfortably. HEENT: trach in place 6-0 cuffed Shiley, left neck incision c/d/i no fluctuance or significant edema. Mild blood-tinged secreations Pulm: mechanically ventilated 30%/ 5 PEEP ASSESSMENT: Mojgan Tabor is a 62 year old male with a PMH significant for R. Occipital stroke (2015), head injury, seizures, Alzheimer's, Right BKA, refractory epilepsy, dysphasia w/PEG tube placement on 03/25/22 who is seen in consultation for Zenker's diverticulum. Recently seen outpatient with plans for elective surgery for his known Zenker's diverticulum, however he is again admitted with aspiration PNA.Now s/p transcervical Zenker's diverticulectomy, tracheostomy 07/15/22. PLAN: - Please have trach obturator in bag and prominently displayed at head of bed - Please have sign in room/above bed stating: ENT only to cut trach sutures, change trach ties, change/downsize trach - Please have an extra same size trach tube (6-0 cuffed), one-size small trach tube (4-0 cuffed), trach ties, and suture removal kit at bedside - Routine trach care, ok to suction and clean/remove/exchange inner cannula - plan for possible MBS when neurologically appropriate with HOSPITAL PHARMACY TECHNICIAN Marcella Thomas. ENT will coordinate. Jhoana Caro MD Otolaryngology and Head and Neck Surgery 07/18/22 MOTIVE PAINT TECHNICIAN * Saloni Payan OT - 07/17/2022 1:58 PM CST [facility] Department of Physical Medicine & Rehabilitation Progress Note Patient: Mojgan Tabor Med Record Number: [id number] Date of : 1960 Age: [age] year old 07/17/22 1358 Missed Visit Missed Visit Bedrest Pt is vent to trach, will follow up Tuesday with early mobility team. Also, please update activity orders prior to mobilization with therapy. Thank you. MOTIVE PAINT TECHNICIAN * Raisa Vee MD - 07/17/2022 12:45 PM CST Images from the original note were not included. MEDICAL ICU Progress Note 07/17/2022 at 12:46 PM Admit Date: 06/27/2022 LOS: 19 days Brief Hospital Course: Mojgan Tabor is a 62 year old male??w/ PMHx significant for CVA with residual L sided defects, history of seizure disorder, dementia, dysphagia with recurrent aspiration (PEG-dependent), Zenker diverticulum, hypertension, BPH, PAD s/p L AKA d/t non-healing foot wound (02/2022), who initially presented [facility] on 06/28 with complaints of hypoxia. The patient is a shelter resident at [facility]. Imaging in ED showed likely aspiration pneumonia, for which he was started on antibiotics. ENT was consulted for possible surgical intervention with his Zenker diverticulum. On 07/02 the patient was noted to have R hemithorax opacification with mediastinal shift. Pulmonary Medicine was consulted on 07/03, and due to recurring events of mucus plugging with desaturations, the patient was transferred to the ICU for further evaluation and management. Upon arrival, patient underwent awake bronchoscopy with suction of mucus plugs and had initial radiographic improvement and also in oxygenation. ICU course was c/b atelectasis of R lung with haziness of LLL for which patient underwentintubation and bronchoscopy on 07/06/2022 with improved chest xray post bronchoscopy but with persistently collapsed RLL and bedside ultrasound with collapsed RLL with curtain sign on the right hemithorax and small Effusion on the Right; IPV initiated; Continuous EEG started by neurology. Patient wasunable to be weaned off the ventilator due to neurological dysfunction, increased secretions. Plan was discussed with ENT with tentative plan of zenker's diverticulum removal on 07/15/2021. Subjective: Interval History: -Patient is POD 2 s/p transcervical Zenker's diverticulectomy, tracheostomy 07/15/22. Seen and examined at beside. Patient still requiring significant encouragement to breathe. Patient is minimally responding to commands but still very weak. -PSV failed today. Back on ASV at 60%. OBJECTIVE: Temp: [98.1 ??F (36.7 ??C)-98.9 ??F (37.2 ??C)] 98.4 ??F (36.9 ??C) Pulse: [80-110] 107 Resp: [11-22] 17 BP: (97-153)/(61-94) 117/73 Arterial Line BP #1: (77-158)/(26-70) 130/62 O2 %: [30 %] 30 % Intake/Output Summary (Last 24 hours) at 07/17/2022 1246 Last data filed at 07/17/2022 1200 Gross per 24 hour Intake 2683.91 ml Output 1745 ml Net 938.91 ml Physical Exam: General: Lying in bed, Elderly, Tracheostomy site in place. Trach to vent on ASV HEENT: PERRL, EOMI, MMM, No JVD, OG/ET Tube in place Lungs: CTAB no w/r/r Heart: RRR no m/r/g Abdomen: S/NT/ND/BS x4, Extremity: No Edema, Pulses 2+ Skin: Warm and dry. No rashes or bruising noted. Neurological: Trach to vent. Moves all extremities. Requiring significant stimulation to assist breathing on PSV. Intake/Output Summary (Last 24 hours) at 07/17/2022 1246 Last data filed at 07/17/2022 1200 Gross per 24 hour Intake 2683.91 ml Output 1745 ml Net 938.91 ml Vitals Pulse: 107 SpO2: 97 % Ventilator Information Ventilator ID: [id number] Ventilation Rate SET VENTILATION RATE (bpm): 10 bpm OBSERVED VENTILATION RATE (bpm): 24 bpm Insp Time (%): 30 % Insp Time (sec): 1.13 sec Insp Flow (L/Min): 60 l/Min Insp rise/Ramp (sec): 0.05 Sec ETS (%): 25 % I:E Ratio: 1:2 Actual I:E Ratio: 1:2.5 f/VT (RSBI): 86 Volumes SET TIDAL VOLUME (mL): 0 ML IDEAL BODY WEIGHT (kg): 69 kg EXHALED TIDAL VOLUME (ml): 340 ml Spontaneous Tidal Volume (mL): 337 ML Observed Minute Ventilation (L/m): 7.5 Liters/Minute Ventilator Pressures OBSERVED PEAK INSPIRATORY PRESSURE (cm H2O): 14 cm H2O Pressure Support: 8 cm H2O PLATEAU PRESSURE (cm H2O): 16 cm H2O Mean Airway Pressure (cm H2O): 7.5 cm H2O PEEP/CPAP: 5 cm H20 Actual PEEP (Intrinsic): 5 cm H20 Safety & Alarms Airway Emergency Supplies Available: Resuscitation Bag with PEEP Valve;Appropriate Size Mask;Obturator;Extra Trach Smaller Size;Extra Trach Same Size Humidity Temp (C): 37 Celsius Humidifier [...] Pulmonary Suctioning Suctioned?: Yes Suction Mode: Oral;Trach Secretion Consistency: Thick Secretion Color: Gerard Secretions Amount: Moderate Hyperoxygenated prior to suctioning?: Yes Labs: CBC: Recent Labs Component Name 07/17/22 0412 07/16/22 0519 07/15/22 0401 WBC 8.9 9.9 6.7 HGB 7.4* 7.7* 8.4* BMP: Recent Labs Component Name 07/17/22 0412 07/16/22 0519 07/15/22 0401 NA 141 140 143 CL 108* 108* 107 CO2 25 22 26 BUN 16 22 26 CREATININE 1.05 1.21* 1.13 CALCIUM 8.5 8.8 9.6 MAGNESIUM 1.8 1.6 1.8 PHOS 3.5 2.1* 4.0 LFT: Recent Labs Component Name 06/30/22 1039 06/27/22221406/21/22 1926 PROT 6.2 8.3 8.3 ALB 2.2* 3.4 3.2* ALKPHOS 65 95 88 AST 13 19 19 ALT 5 6 10 Coagulation: Recent Labs Component Name 06/27/22221405/11/22 1309 03/11/22 1059 PT 12.8 13.5 15.4* INR 1.0 1.0 1.2 Cardiac markers: Recent Labs Component Name 07/11/22 0040 07/01/22 1634 06/28/22 0141 06/27/22221405/30/22 1750 03/08/22 1455 12/31/21 0412 CKTOTAL 49 42 - - - - 77 TROPONINI - - <0.010 <0.010 <0.010 - - - = values in this interval not displayed. MICROBIOLOGY Microbiology Results (Displays last 21 days for this encounter ONLY) Procedure Component Value - Date/Time CULTURE BRONCHIAL WASHING+GRAM STAIN [[id number]] Collected: 07/05/222230 Lab Status: Final result Specimen: Microbiology from Bronchial Washings Updated: 07/07/22 1552 Culture No growth Gram Stain Rare Polymorphonuclear cells Rare Squamous epithelial cells No organisms seen CULTURE URINE [[id number]] Collected: 07/04/22 014 Lab Status: Final result Specimen: Urine Clean Catch Updated: 07/05/22821 Culture Urine 10,000-50,000 CFU/mL urogenital heidi CULTURE BLOOD FUNGUS [[id number]] (Normal) Collected: 06/30/222044 Lab Status: Preliminary result Specimen: Blood Peripheral Updated: 07/12/22821 Culture No fungus isolated RESPIRATORY PANEL WITH SARS-COV-2 BY PCR (STL) [[id number]] (Normal) Collected: 06/30/221951 Lab Status: Final result Specimen: Microbiology from Nasopharyngeal Updated: 07/01/22 0014 Adenovirus PCR Not detected Coronavirus 229E PCR Not detected Coronavirus HKU1 PCR Not detected Coronavirus NL63 PCR Not detected Coronavirus OC43 PCR Not detected COVID-19 PCR Not detected Human Metapneumovirus PCR Not detected Human Rhinovirus/Enterovirus PCR Not detected Influenza A PCR Not detected Influenza B PCR Not detected Parainfluenza Virus 1 PCR Not detected Parainfluenza Virus 2 PCR Not detected Parainfluenza Virus 3 PCR Not detected Parainfluenza Virus 4 PCR Not detected Respiratory Syncytial Virus PCR Not detected Bordetella parapertussis PCR Not detected Bordetella pertussis PCR Not detected Chlamydia pneumoniae PCR Not detected Mycoplasma pneumoniae PCR Not detected Narrative: This nucleic amplification assay has received FDA authorization via the [employer]. CULTURE BLOOD [[id number]] (Normal) Collected: 06/30/22 1625 Lab Status: Final result Specimen: Blood Peripheral Updated: 07/05/22 1901 Culture No growth day 5 CULTURE BLOOD [[id number]] (Normal) Collected: 06/30/22 1611 Lab Status: Final result Specimen: Blood Peripheral Updated: 07/05/22 1901 Culture No growth day 5 CULTURE MRSA [[id number]] (Abnormal) Collected: 06/29/22 1242 Lab Status: Final result Specimen: Microbiology from Nasal Updated: 06/30/22 2139 Culture Growth of Staphylococcus aureus methicillin-resistant (MRSA) Narrative: Methicillin-resistant Staphylococci (MRSA) are resistant to all currently available beta-lactam antibiotics with the exception of the newer cephalosporins with anti-MRSA activity. Contact precautionsrequired. LEGIONELLA ANTIGEN URINE [[id number]] (Normal) Collected: 06/28/22 0348 Lab Status: Final result Specimen: Urine Updated: 06/28/22 1005 Legionella Antigen Urine Negative Narrative: This assay detects Legionella pneumophila serogroup one (1) antigen. A negative test result does not rule out the possibility of Legionella infection due to other serogroups or species of Legionella.A positive result may indicate a recent or remote infection with serogroup 1. SARS-COV-2 (COVID-19) FLU A/B RSV PCR RAPID [[id number]] (Normal) Collected: 06/27/22 2223 Lab Status: Final result Specimen: Microbiology from Nasopharyngeal Updated: 06/27/22 2310 COVID-19 PCR Not detected Influenza A PCR Not detected Influenza B PCR Not detected RSV PCR Not detected Narrative: This nucleic acid amplification assay has been authorized by the Food and Drug administration (FDA)under an Emergency??Use Authorization (EUA).?? This test is only authorized for the duration of time the declaration that circumstances exist justifying the authorization of emergency use of in vitrodiagnostic tests for detection of SARS-CoV-2 virus and/or diagnosis of COVID-19 infection under section 564(b)(1) of the Act, 21 U.S.C 360bbb-3 (b)(1), unless the authorization is terminated or revoked sooner. Fact Sheets for this EUA assay are available upon request. CULTURE BLOOD [[id number]] (Normal) Collected: 06/27/222214 Lab Status: Final result Specimen: Blood Peripheral Updated: 07/03/22 0200 Culture No growth day 5 CULTURE BLOOD [[id number]] (Normal) Collected: 06/27/222199 Lab Status: Final result Specimen: Blood Peripheral Updated: 07/03/22 0200 Culture No growth day 5 IMAGING No results found. Medications ??? 0.9% NaCl 3 mL Intracatheter q8h ??? albuterol 2.5 mg Inhalation q12h ??? artificial tears Each Eye q8h ??? aspirin 81 mg Enteral Tube QDAY ??? atorvastatin 40 mg Enteral Tube QDAY ??? chlorhexidine 15 mL Mouth/Throat BID ??? cloBAZam 20 mg Enteral Tube BID ??? divalproex sprinkle 500 mg Enteral Tube Every 6 Hours (03,09,15,21) ??? enoxaparin 40 mg Subcutaneous QDAY ??? famotidine 20 mg Enteral Tube QDAY ??? lacosamide 200 mg Enteral Tube BID ??? levETIRAcetam 1,000 mg Enteral Tube BID ??? oxybutynin 5 mg Enteral Tube BID ??? polyethylene glycol 3350 17 g Enteral Tube QDAY ??? senna-docusate 1 tablet Enteral Tube BID ??? sodium chloride (Inhalant) 4 mL Inhalation BID ??? tamsulosin 0.4 mg Oral QDAY Continuous Medications PRN Medications ??? SALINE LOCK, INSERT AND MAINTAIN AND 0.9% NaCl AND 0.9% NaCl ??? acetaminophen ??? artificial tears ??? bisacodyl ??? EPINEPHrine-NaCl 0.9% ??? fentaNYL (PF) ??? 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 ([facility]) POA: Yes Acute encephalopathy POA: Yes Sepsis without acute organ dysfunction ([facility]) POA: Yes PAD (peripheral artery disease) ([facility]) POA: Yes History of stroke POA: Yes Protein-calorie malnutrition, unspecified severity ([facility]) POA: Yes Aspiration into airway POA: Yes Leukocytosis, unspecified type POA: Yes Tachycardia POA: Yes Hypoxia POA: Yes Acute respiratory failure with hypoxia ([facility]) POA: Yes Pneumonia of right lower lobe due to infectious organism POA: Yes Atelectasis, right POA: Yes Contrast-induced nephropathy POA: Yes Zenker diverticula POA: Yes Hypernatremia POA: No Hyperkalemia POA: No PLAN: Neurological -Encephalopathy related to metabolic, hypoxia, seizure disorder, ICU delirium, Brain infarction -On depakote 500 mg q6h, Clobazam 20 mg bid, Keppra 500mg bid and Vimpat 200 mg BID -Continue ASA -Lipitor 40 mg daily -Aspiration precautions -Seizure precautions -Appreciate neurology recommendations Cardiovascular: -Continue ASA -Keep MAP >65 Pulmonary: -Trach to vent attempted PSV today but failed. Will place back on ASV and retry tomorrow. -Has complicated 7 days of antibiotics. 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 Will monitor Na daily with CMP. -Continue Flomax 0.4mg daily -Oxybutynin 5 mg bid -Electrolytes: Monitor chem 7 and Mg every 24 hours and replace Mg if less than1.8 or if K < 3.5 -Urinary retention: Jensen in place (placed on 07/15/22) Endocrine: -Sliding scale to keep between glucose between 140 - 180 I.D.: -Completed Zosyn for 7 days Heme/Onc: Transfusion Protocol: Hb < 7, Plt < 10 LDA: Peripheral IV Anterior;Left;Upper Arm (Active) Placement Date/Time: 07/10/22 0200 Orientation: Anterior;Left;Upper Location: Arm Name/Credentials of person who placed: L Wesley IV Catheter Size: 20 Gauge Technique: Ultrasound Guidance Number of days: 4 Enteral - Percutaneous Endoscopic Gastrostomy Abdomen;Midline;Upper (Active) Placement Date/Time: 03/25/22 165 Name/Credentials of person who placed: Jolynn Ann MD Type: Percutaneous Endoscopic Gastrostomy Tube Location: Abdomen;Midline;Upper Size (FR): 24 Procedure Tolerance: Well Number of days: 111 ETT Endotracheal Tube 8 MM (Active) Placement Date/Time: 07/05/222127 Person who placed: Shannon Nino MD Mask Ventilation: easy mask Induction: Rapid Sequence Blade Type: King Blade Size: 4 Support Device: Video Laryngoscope Device: Endotracheal Tube Location: Oral Tube s... Number of days: 8 Other Wound Anterior;Lower;Proximal;Right Arm (Active) Date/Time: 06/29/221999 Orientation: Anterior;Lower;Proximal;Right Location: Arm Number of days: 14 Other Wound Left Ear (Active) Date/Time: 07/03/221839 Orientation: Left Location: Ear Number of days: 10 Other Wound Right Ear (Active) Date/Time: 07/03/221839 Orientation: Right Location: Ear Number of days: 10 Prophylaxis: DVT prophylaxis: [x] Lovenox 40mg , [] Lovenox 30mg, [] Sq Heparin GI prophylaxis: Pepcid Aspiration precautions with elevation of HOB by 30 degrees. Fluids: None. On TF. Diet: DIETARY NUTRITION SUPPLEMENTS DIET NPO Except: NO EXCEPTIONS DIET TUBE FEEDING CONTINUOUS Activity: Ad Merline Disposition: ICU Monitoring Code: Full Code Raisa Vee M.D. Pulmonary / Critical Care Fellow Division of Pulmonary, Critical Care, & Sleep Medicine [facility] 07/17/22 MOTIVE PAINT TECHNICIAN Associated attestation - Artemio Abarca MD - 07/17/2022 2:30 PM AUTOMOTIVE PAINT TECHNICIAN Medical ICU Attending Note I have seen and examined the patient with the resident/fellow. Please see note for further details. In brief, Mojgan Tabor is a 62 year old male admitted to the ICU for recurrent aspiration and acutehypoxic respiratory failure requiring intubation. ASSESSMENT/PLAN: Critical care was necessary to treat or prevent life-threatening deterioration of the following: Epilepsy, unspecified, not intractable, without status epilepticus (CMS/HCC) POA: Yes Muscle weakness (generalized) POA: Yes Hemiplegia and 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- dominant side (CMS/HCC) POA: Yes Acute encephalopathy POA: Yes Sepsis without acute organ dysfunction (CMS/HCC) POA: Yes PAD (peripheral artery disease) (CMS/HCC) POA: Yes History of stroke POA: Yes Protein-calorie malnutrition, unspecified severity (CMS/HCC) POA: Yes Aspiration into airway POA: Yes Leukocytosis, unspecified type POA: Yes Tachycardia POA: Yes Hypoxia POA: Yes Acute respiratory failure with hypoxia (CMS/HCC) POA: Yes Pneumonia of right lower lobe due to infectious organism POA: Yes Atelectasis, right POA: Yes Contrast-induced nephropathy POA: Yes Zenker diverticula POA: Yes Hypernatremia POA: No Hyperkalemia POA: No The plan of care consists of: Neuro: Off sedation Mental status fluctuates Keppra and vimpat Will need aggressive PT/OT Neuro checks Respiratory: S/p trach. Started weaning. Has excellent lung mechanics Changed to PSV /, however, cont to have apnea episodes Will need ongoing trails of PSV Alternate with ASV, give 50-60% of ASV support Needs bronchoscopy prn for airway clearance. Cont IPV, vest, and bronchodilators for now HOB>30; Monitor for Respiratory distress Cardiovascular/Hemodynamics: Hemodynamic monitoring. Goal MAP ~65mmHg GI/Nutrition: TF Has PEG GI prophylaxis . Renal/lytes: Supportive care Heme: Transfuse if Hb <7.0 gm/dl ID: Antibiotics: completed zosyn course Disposition: ICU monitoring I spent 32 minutes in full attendance with this critically-ill patient. Time spent was exclusive ofseparately billed procedures, treating other patients, and teaching time. I have reviewed and agreewith resident/fellow documentation. Pt. is at high risk for [...] discussion is necessary for determining treatment decisions. Critical Care Attending: Artemio bAarca MD * Chely Alves, PT - 07/17/2022 12:21 PM CST [facility] Department of Physical Medicine & Rehabilitation Progress Note Patient: Mojgan Tabor [facility] Record Number: [id number] Date of : 1960 Age: [age] year old 07/17/22 1200 Missed Visit Missed Visit Bedrest;Other (Comment) Please update activity orders so therapy can be initiated. MOTIVE PAINT TECHNICIAN * Sondra Orlando MD - 07/17/2022 8:27 AM CST Otolaryngology Progress Note 07/17/2022 SUBJECTIVE: 2 Days Post-Op s/p trach and Zenker's repair. NAEON, VSS. Mechanically ventilated. Not yet mentallyappropriate for MBS. VITALS: Temp (30hrs) Max:101.3 ??F (38.5 ??C) Vitals: 07/17/22 0400 07/17/22 0411 07/17/22 0500 07/17/22 0600 BP: 148/82 137/80 135/77 Pulse: 90 95 90 87 Resp: 14 14 14 Temp: 98.1 ??F (36.7 ??C) SpO2: 98% 97% 97% 97% Weight: 67 kg (147 lb 11.3 oz) Height: Intake/Output Summary (Last 24 hours) at 07/17/2022 0827 Last data filed at 07/17/2022 0600 Gross per 24 hour Intake 2331.76 ml Output 1440 ml Net 891.76 ml MEDICATIONS FOR CURRENT ENCOUNTER: SCHEDULED MEDICATIONS: 0.9% NaCl injection 3 mL, Intracatheter, q8h albuterol (Proventil;Ventolin) (5 MG/ML) 0.5% nebulizer solution 2.5 mg, Inhalation, q12h artificial tears ophthalmic ointment, Each Eye, q8h aspirin chew tablet 81 mg, Enteral Tube, QDAY atorvastatin (Lipitor) tablet 40 mg, Enteral Tube, QDAY chlorhexidine (Peridex) 0.12 % oral solution 15 mL, Mouth/Throat, BID cloBAZam (Onfi) tablet 20 mg, Enteral Tube, BID divalproex sprinkle (Depakote Sprinkle) capsule 500 mg, Enteral Tube, Every 6 Hours (03,09,15,21) enoxaparin (Lovenox) injection 40 mg, Subcutaneous, QDAY famotidine (Pepcid) tablet 20 mg, Enteral Tube, QDAY lacosamide (Vimpat) tablet 200 mg, Enteral Tube, BID levETIRAcetam (Keppra) tablet 1,000 mg, Enteral Tube, BID oxybutynin (Ditropan) tablet 5 mg, Enteral Tube, BID polyethylene glycol 3350 (Miralax) packet 17 g, Enteral Tube, QDAY senna-docusate (Senokot-S) tablet 1 tablet, Enteral Tube, BID sodium chloride (Inhalant) 7 % nebulizer solution 4 mL, Inhalation, BID tamsulosin (Flomax) capsule 0.4 mg, Oral, QDAY [COMPLETED] lactated ringers IV bolus, Intravenous, Once ?? [COMPLETED] potassium phosphate 30 mmol in d5w 260 mL bolus premix, Intravenous, Once ?? CONTINUOUS MEDICATIONS: PRN MEDICATIONS: 0.9% NaCl injection 1-10 mL, Intracatheter, PRN acetaminophen (Tylenol) tablet 500 mg, Enteral Tube, q4h PRN artificial tears ophthalmic solution 1 drop, Each Eye, TID PRN bisacodyl (Dulcolax) suppository 10 mg, Rectal, QDAY PRN EPINEPHrine-NaCl 0.9% syringe, , PRN fentaNYL (PF) (Sublimaze) injection 25 mcg, Intravenous, q1h PRN ?? lidocaine 1% (Xylocaine-MPF) - EPINEPHrine 1:100,000 injection, , PRN PHYSICAL EXAM: Gen: no acute distress, resting comfortably. HEENT: trach in place 6-0 cuffed Shiley, left neck incision c/d/i no fluctuance or significant edema. Mild blood-tinged secreations Pulm: mechanically ventilated 30%/5PEEP ASSESSMENT: Mojgan Tabor is a 62 year old male with a PMH significant for R. Occipital stroke (2015), head injury, seizures, Alzheimer's, Right BKA, refractory epilepsy, dysphasia w/PEG tube placement on 03/25/22 who is seen in consultation for Zenker's diverticulum. Recently seen outpatient with plans for elective surgery for his known Zenker's diverticulum, however he is again admitted with aspiration PNA.Now s/p transcervical Zenker's diverticulectomy, tracheostomy 07/15/22. PLAN: - Please have trach obturator in bag and prominently displayed at head of bed - Please have sign in room/above bed stating: ENT only to cut trach sutures, change trach ties, change/downsize trach - Please have an extra same size trach tube (6-0 cuffed), one-size small trach tube (4-0 cuffed), trach ties, and suture removal kit at bedside - Routine trach care, ok to suction and clean/remove/exchange inner cannula - plan for possible MBS when neurologically appropriate with HOSPITAL PHARMACY TECHNICIAN Marcella Thomas. ENT will coordinate. Sondra Orlando MD Otolaryngology and Head and Neck Surgery Resident 07/17/22 MOTIVE PAINT TECHNICIAN * Raisa Vee MD - 07/16/2022 1:23 PM CST Images from the original note were not included. MEDICAL ICU Progress Note 07/16/2022 at 1:24 PM Admit Date: 06/27/2022 LOS: 18 days Brief Hospital Course: Mojgan Tabor is a 62 year old male??w/ PMHx significant for CVA with residual L sided defects, history of seizure disorder, dementia, dysphagia with recurrent aspiration (PEG-dependent), Zenker diverticulum, hypertension, BPH, PAD s/p L AKA d/t non-healing foot wound (02/2022), who initially presented to [facility] ED on 06/28 with complaints of hypoxia. The patient is a shelter resident at [facility]. Imaging in ED showed likely aspiration pneumonia, for which he was started on antibiotics. ENT was consulted for possible surgical intervention with his Zenker diverticulum. On 07/02 the patient was noted to have R hemithorax opacification with mediastinal shift. Pulmonary Medicine was consulted on 07/03, and due to recurring events of mucus plugging with desaturations, the patient was transferred to the ICU for further evaluation and management. Upon arrival, patient underwent awake bronchoscopy with suction of mucus plugs and had initial radiographic improvement and also in oxygenation. ICU course was c/b atelectasis of R lung with haziness of LLL for which patient underwentintubation and bronchoscopy on 07/06/2022 with improved chest xray post bronchoscopy but with persistently collapsed RLL and bedside ultrasound with collapsed RLL with curtain sign on the right hemithorax and small Effusion on the Right; IPV initiated; Continuous EEG started by neurology. Patient wasunable to be weaned off the ventilator due to neurological dysfunction, increased secretions. Plan was discussed with ENT with tentative plan of zenker's diverticulum removal on 07/15/2021. Subjective: Interval History: -Patient is POD 1 s/p transcervical Zenker's diverticulectomy, tracheostomy 07/15/22. Seen and examined at beside. Patient still requiring significant encouragement to breath. Patient is responding tocommands but still very weak. -PSV today. ASV at night. -500cc bolus LR administered OVN for hypotension. No more episodes this morning OBJECTIVE: Temp: [97.8 ??F (36.6 ??C)-101.3 ??F (38.5 ??C)] 97.8 ??F (36.6 ??C) Pulse: [88-120] 90 Resp: [11-20] 11 BP: (98-138)/(64-78) 118/67 Arterial Line BP #1: (84-161)/(47-69) 105/54 O2 %: [30 %-40 %] 30 % Intake/Output Summary (Last 24 hours) at 07/16/2022 1324 Last data filed at 07/16/2022 1200 Gross per 24 hour Intake 2223.14 ml Output 1735 ml Net 488.14 ml Physical Exam: General: Lying in bed, Elderly, Tracheostomy site in place. Trach to vent on PSV HEENT: PERRL, EOMI, MMM, No JVD, OG/ET Tube in place Lungs: CTAB no w/r/r Heart: RRR no m/r/g Abdomen: S/NT/ND/BS x4, Extremity: No Edema, Pulses 2+ Skin: Warm and dry. No rashes or bruising noted. Neurological: Trach to vent. Moves all extremities. Requiring significant stimulation to assist breathing on PSV. Intake/Output Summary (Last 24 hours) at 07/16/2022 1324 Last data filed at 07/16/2022 1200 Gross per 24 hour Intake 2223.14 ml Output 1735 ml Net 488.14 ml Vitals Pulse: 90 SpO2: 96 % Ventilator Information Ventilator ID: [id number] Ventilation Rate SET VENTILATION RATE (bpm): 10 bpm OBSERVED VENTILATION RATE (bpm): 17 bpm Insp Time (%): 30 % Insp Time (sec): 1.13 sec Insp Flow (L/Min): 60 l/Min Insp rise/Ramp (sec): 0.05 Sec ETS (%): 25 % I:E Ratio: 1:2 Actual I:E Ratio: 1:2.3 f/VT (RSBI): 86 Volumes SET TIDAL VOLUME (mL): 0 ML EXHALED TIDAL VOLUME (ml): 525 ml Spontaneous Tidal Volume (mL): 337 ML Observed Minute Ventilation (L/m): 5.5 Liters/Minute Ventilator Pressures OBSERVED PEAK INSPIRATORY PRESSURE (cm H2O): 16 cm H2O Pressure Support: 8 cm H2O PLATEAU PRESSURE (cm H2O): 13 cm H2O Mean Airway Pressure (cm H2O): 8 cm H2O PEEP/CPAP: 5 cm H20 Actual PEEP (Intrinsic): 5 cm H20 Safety & Alarms Airway Emergency Supplies Available: Obturator;Resuscitation Bag with PEEP Valve;Oxygen Connecting Tubing;Extra Trach Same Size;Extra Trach Smaller [...] Pulmonary Suctioning Suctioned?: Yes Suction Mode: Oral;Trach Secretion Consistency: Thick Secretion Color: Blood streaked Secretions Amount: Moderate Hyperoxygenated prior to suctioning?: Yes Labs: CBC: Recent Labs Component Name 07/16/22 0519 07/15/22 0401 07/14/22 0411 WBC 9.9 6.7 6.8 HGB 7.7* 8.4* 8.2* BMP: Recent Labs Component Name 07/16/22 0519 07/15/22 0401 07/14/22 0411 NA 140 143 139 CL 108* 107 104 CO2 22 26 25 BUN 22 26 34* CREATININE 1.21* 1.13 1.30* CALCIUM 8.8 9.6 9.6 MAGNESIUM 1.6 1.8 1.8 PHOS 2.1* 4.0 3.0 LFT: Recent Labs Component Name 06/30/22 1039 06/27/22221406/21/22 1926 PROT 6.2 8.3 8.3 ALB 2.2* 3.4 3.2* ALKPHOS 65 95 88 AST 13 19 19 ALT 5 6 10 Coagulation: Recent Labs Component Name 06/27/22 2215 05/11/22 1309 03/11/22 1059 PT 12.8 13.5 15.4* INR 1.0 1.0 1.2 Cardiac markers: Recent Labs Component Name 07/11/22 0040 07/01/22 1634 06/28/22 0141 06/27/22 2215 05/30/22 1750 03/08/22 1455 12/31/21 0412 CKTOTAL 49 42 - - - - 77 TROPONINI - - <0.010 <0.010 <0.010 - - - = values in this interval not displayed. MICROBIOLOGY Microbiology Results (Displays last 21 days for this encounter ONLY) Procedure Component Value - Date/Time CULTURE BRONCHIAL WASHING+GRAM STAIN [[id number]] Collected: 07/05/222230 Lab Status: Final result Specimen: Microbiology from Bronchial Washings Updated: 07/07/22 1552 Culture No growth Gram Stain Rare Polymorphonuclear cells Rare Squamous epithelial cells No organisms seen CULTURE URINE [[id number]] Collected: 02/05/23 0145 Lab Status: Final result Specimen: Urine Clean Catch Updated: 07/05/22 0822 Culture Urine 10,000-50,000 CFU/mL urogenital heidi CULTURE BLOOD FUNGUS [[id number]] (Normal) Collected: 06/30/22 2045 Lab Status: Preliminary result Specimen: Blood Peripheral Updated: 07/12/22 0822 Culture No fungus isolated RESPIRATORY PANEL WITH SARS-COV-2 BY PCR (STL) [[id number]] (Normal) Collected: 06/30/22 195 Lab Status: Final result Specimen: Microbiology from Nasopharyngeal Updated: 07/01/22 0014 Adenovirus PCR Not detected Coronavirus 229E PCR Not detected Coronavirus HKU1 PCR Not detected Coronavirus NL63 PCR Not detected Coronavirus OC43 PCR Not detected COVID-19 PCR Not detected Human Metapneumovirus PCR Not detected Human Rhinovirus/Enterovirus PCR Not detected Influenza A PCR Not detected Influenza B PCR Not detected Parainfluenza Virus 1 PCR Not detected Parainfluenza Virus 2 PCR Not detected Parainfluenza Virus 3 PCR Not detected Parainfluenza Virus 4 PCR Not detected Respiratory Syncytial Virus PCR Not detected Bordetella parapertussis PCR Not detected Bordetella pertussis PCR Not detected Chlamydia pneumoniae PCR Not detected Mycoplasma pneumoniae PCR Not detected Narrative: This nucleic amplification assay has received FDA authorization via the [employer]. CULTURE BLOOD [[id number]] (Normal) Collected: 06/30/22 1625 Lab Status: Final result Specimen: Blood Peripheral Updated: 07/05/22 1901 Culture No growth day 5 CULTURE BLOOD [[id number]] (Normal) Collected: 06/30/22 1611 Lab Status: Final result Specimen: Blood Peripheral Updated: 07/05/22 1901 Culture No growth day 5 CULTURE MRSA [[id number]] (Abnormal) Collected: 06/29/22 1242 Lab Status: Final result Specimen: Microbiology from Nasal Updated: 06/30/22 2139 Culture Growth of Staphylococcus aureus methicillin-resistant (MRSA) Narrative: Methicillin-resistant Staphylococci (MRSA) are resistant to all currently available beta-lactam antibiotics with the exception of the newer cephalosporins with anti-MRSA activity. Contact precautionsrequired. LEGIONELLA ANTIGEN URINE [[id number]] (Normal) Collected: 06/28/22 0348 Lab Status: Final result Specimen: Urine Updated: 06/28/22 1005 Legionella Antigen Urine Negative Narrative: This assay detects Legionella pneumophila serogroup one (1) antigen. A negative test result does not rule out the possibility of Legionella infection due to other serogroups or species of Legionella.A positive result may indicate a recent or remote infection with serogroup 1. SARS-COV-2 (COVID-19) FLU A/B RSV PCR RAPID [[id number]] (Normal) Collected: 06/27/222222 Lab Status: Final result Specimen: Microbiology from Nasopharyngeal Updated: 06/27/22 2310 COVID-19 PCR Not detected Influenza A PCR Not detected Influenza B PCR Not detected RSV PCR Not detected Narrative: This nucleic acid amplification assay has been authorized by the Food and Drug administration (FDA)under an Emergency??Use Authorization (EUA).?? This test is only authorized for the duration of time the declaration that circumstances exist justifying the authorization of emergency use of in vitrodiagnostic tests for detection of SARS-CoV-2 virus and/or diagnosis of COVID-19 infection under section 564(b)(1) of the Act, 21 U.S.C 360bbb-3 (b)(1), unless the authorization is terminated or revoked sooner. Fact Sheets for this EUA assay are available upon request. CULTURE BLOOD [[id number]] (Normal) Collected: 06/27/222214 Lab Status: Final result Specimen: Blood Peripheral Updated: 07/03/22 0200 Culture No growth day 5 CULTURE BLOOD [[id number]] (Normal) Collected: 06/27/222199 Lab Status: Final result Specimen: Blood Peripheral Updated: 07/03/22 0200 Culture No growth day 5 IMAGING No results found. Medications ??? 0.9% NaCl 3 mL Intracatheter q8h ??? albuterol 2.5 mg Inhalation q12h ??? artificial tears Each Eye q8h ??? aspirin 81 mg Enteral Tube QDAY ??? atorvastatin 40 mg Enteral Tube QDAY ??? chlorhexidine 15 mL Mouth/Throat BID ??? cloBAZam 20 mg Enteral Tube BID ??? divalproex sprinkle 500 mg Enteral Tube Every 6 Hours (03,09,15,21) ??? enoxaparin 40 mg Subcutaneous QDAY ??? famotidine 20 mg Enteral Tube QDAY ??? lacosamide 200 mg Enteral Tube BID ??? levETIRAcetam 1,000 mg Enteral Tube BID ??? oxybutynin 5 mg Enteral Tube BID ??? polyethylene glycol 3350 17 g Enteral Tube QDAY ??? potassium phosphate 30 mmol Intravenous Once ??? senna-docusate 1 tablet Enteral Tube BID ??? sodium chloride (Inhalant) 4 mL Inhalation BID ??? tamsulosin 0.4 mg Oral QDAY Continuous Medications PRN Medications ??? SALINE LOCK, INSERT AND MAINTAIN AND 0.9% NaCl AND 0.9% NaCl ??? acetaminophen ??? artificial tears ??? bisacodyl ??? EPINEPHrine-NaCl 0.9% ??? fentaNYL (PF) ??? 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 (CMS/HCC) POA: Yes Acute encephalopathy POA: Yes Sepsis without acute organ dysfunction (CMS/HCC) POA: Yes PAD (peripheral artery disease) (CMS/HCC) POA: Yes History of stroke POA: Yes Protein-calorie malnutrition, unspecified severity (CMS/HCC) POA: Yes Aspiration into airway POA: Yes Leukocytosis, unspecified type POA: Yes Tachycardia POA: Yes Hypoxia POA: Yes Acute respiratory failure with hypoxia (CMS/HCC) POA: Yes Pneumonia of right lower lobe due to infectious organism POA: Yes Atelectasis, right POA: Yes Contrast-induced nephropathy POA: Yes Zenker diverticula POA: Yes Hypernatremia POA: No Hyperkalemia POA: No PLAN: Neurological -Encephalopathy related to metabolic, hypoxia, seizure disorder, prolonged ICU stay and intubation, Brain infarction -On depakote 500 mg q6h, Clobazam 20 mg bid, Keppra 500mg bid and Vimpat 200 mg BID -Continue ASA -Lipitor 40 mg daily -Aspiration precautions -Seizure precautions -Follow neurology recommendations Cardiovascular: -Continue ASA -Keep MAP >65 Pulmonary: -Trach to vent on PSV now. Will place back on ASV tonight and try to wean off mechanicalventilation in the coming days. -Has complicated 7 days of antibiotics. 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 Will monitor Na daily with CMP. -Continue Flomax 0.4mg daily -Oxybutynin 5 mg bid -Electrolytes: Monitor chem 7 and Mg every 24 hours and replace Mg if less than1.8 or if K < 3.5 -Urinary retention: Jensen in place (placed on 07/15/22) Endocrine: -Sliding scale to keep between glucose between 140 - 180 I.D.: -Completed Zosyn for 7 days Heme/Onc: Transfusion Protocol: Hb < 7, Plt < 10 LDA: Peripheral IV Anterior;Left;Upper Arm (Active) Placement Date/Time: 07/10/22 0200 Orientation: Anterior;Left;Upper Location: Arm Name/Credentials of person who placed: Kandi Olson IV Catheter Size: 20 Gauge Technique: Ultrasound Guidance Number of days: 4 Enteral - Percutaneous Endoscopic Gastrostomy Abdomen;Midline;Upper (Active) Placement Date/Time: 03/25/22 165 Name/Credentials of person who placed: Jolynn Ann MD Type: Percutaneous Endoscopic Gastrostomy Tube Location: Abdomen;Midline;Upper Size (FR): 24 Procedure Tolerance: Well Number of days: 111 ETT Endotracheal Tube 8 MM (Active) Placement Date/Time: 07/05/222127 Person who placed: Shannon Nino MD Mask Ventilation: easy mask Induction: Rapid Sequence Blade Type: King Blade Size: 4 Support Device: Video Laryngoscope Device: Endotracheal Tube Location: Oral Tube s... Number of days: 8 Other Wound Anterior;Lower;Proximal;Right Arm (Active) Date/Time: 06/29/221999 Orientation: Anterior;Lower;Proximal;Right Location: Arm Number of days: 14 Other Wound Left Ear (Active) Date/Time: 07/03/221839 Orientation: Left Location: Ear Number of days: 10 Other Wound Right Ear (Active) Date/Time: 07/03/221839 Orientation: Right Location: Ear Number of days: 10 Prophylaxis: DVT prophylaxis: [x] Lovenox 40mg , [] Lovenox 30mg, [] Sq Heparin GI prophylaxis: Pepcid Aspiration precautions with elevation of HOB by 30 degrees. Fluids: None. On TF. Diet: DIETARY NUTRITION SUPPLEMENTS DIET NPO Except: NO EXCEPTIONS DIET TUBE FEEDING CONTINUOUS Activity: Ad Merline Disposition: ICU Monitoring Code: Full Code Raisa Vee M.D. Pulmonary / Critical Care Fellow Division of Pulmonary, Critical Care, & Sleep Medicine [facility] 07/16/22 MOTIVE PAINT TECHNICIAN Associated attestation - Artemio Abarca MD - 07/16/2022 2:00 PM AUTOMOTIVE PAINT TECHNICIAN Medical ICU Attending Note I have seen and examined the patient with the resident/fellow. Please see note for further details. In brief, Mojgan Tabor is a 62 year old male admitted to the ICU for recurrent aspiration and acutehypoxic respiratory failure requiring intubation. ASSESSMENT/PLAN: Critical care was necessary to treat or prevent life-threatening deterioration of the following: Epilepsy, unspecified, not intractable, without status epilepticus (CMS/HCC) POA: Yes Muscle weakness (generalized) POA: Yes Hemiplegia and 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- dominant side (CMS/HCC) POA: Yes Acute encephalopathy POA: Yes Sepsis without acute organ dysfunction (CMS/HCC) POA: Yes PAD (peripheral artery disease) (CMS/HCC) POA: Yes History of stroke POA: Yes Protein-calorie malnutrition, unspecified severity (CMS/HCC) POA: Yes Aspiration into airway POA: Yes Leukocytosis, unspecified type POA: Yes Tachycardia POA: Yes Hypoxia POA: Yes Acute respiratory failure with hypoxia (CMS/HCC) POA: Yes Pneumonia of right lower lobe due to infectious organism POA: Yes Atelectasis, right POA: Yes Contrast-induced nephropathy POA: Yes Zenker diverticula POA: Yes Hypernatremia POA: No Hyperkalemia POA: No The plan of care consists of: Neuro: Off sedation Mental status fluctuates Keppra and vimpat Start PT/OT Neuro checks Respiratory: S/p trach. Started weaning. I placed the pt on PSV 12/5. Doing well with excellent lung mechanics Needs bronchoscopy prn for airway clearance. Cont IPV, vest, and bronchodilators for now HOB>30; Monitor for Respiratory distress Cardiovascular/Hemodynamics: Hemodynamic monitoring. Goal MAP ~65mmHg GI/Nutrition: TF Has PEG GI prophylaxis . Renal/lytes: Supportive care Heme: Transfuse if Hb <7.0 gm/dl ID: Antibiotics: completed zosyn course Disposition: ICU monitoring I spent 32 minutes in full attendance with this critically-ill patient. Time spent was exclusive ofseparately billed procedures, treating other patients, and teaching time. I have reviewed and agreewith resident/fellow documentation. Pt. is at high risk for [...] discussion is necessary for determining treatment decisions. Critical Care Attending: Artemio Abarca MD * Portillo Flynn MD - 07/16/2022 9:00 AM CST Otolaryngology Progress Note 07/16/2022 SUBJECTIVE: Fever to 101.3 this AM, mild oozing bleed from around trach faceplate. No self reported concerns this morning. VITALS: Temp (30hrs) Max:101.3 ??F (38.5 ??C) Vitals: 07/16/22 0530 07/16/22 0600 07/16/22 0630 07/16/22 0800 BP: 125/78 Pulse: 93 Resp: 17 Temp: (!) 101.3 ??F (38.5 ??C) 99.6 ??F (37.6 ??C) 98.4 ??F (36.9 ??C) SpO2: 98% Weight: Height: Intake/Output Summary (Last 24 hours) at 07/16/2022 0900 Last data filed at 07/16/2022 0800 Gross per 24 hour Intake 2750.29 ml Output 1940 ml Net 810.29 ml MEDICATIONS FOR CURRENT ENCOUNTER: SCHEDULED MEDICATIONS: 0.9% NaCl injection 3 mL, Intracatheter, q8h albuterol (Proventil;Ventolin) (5 MG/ML) 0.5% nebulizer solution 2.5 mg, Inhalation, q12h artificial tears ophthalmic ointment, Each Eye, q8h aspirin chew tablet 81 mg, Enteral Tube, QDAY atorvastatin (Lipitor) tablet 40 mg, Enteral Tube, QDAY chlorhexidine (Peridex) 0.12 % oral solution 15 mL, Mouth/Throat, BID cloBAZam (Onfi) tablet 20 mg, Enteral Tube, BID enoxaparin (Lovenox) injection 40 mg, Subcutaneous, QDAY famotidine (Pepcid) tablet 20 mg, Enteral Tube, QDAY lacosamide (Vimpat) injection 200 mg, Intravenous, BID levETIRAcetam (Keppra) 500 mg in 100 mL IVPB, Intravenous, q12h oxybutynin (Ditropan) tablet 5 mg, Enteral Tube, BID polyethylene glycol 3350 (Miralax) packet 17 g, Enteral Tube, QDAY potassium phosphate 30 mmol in d5w 260 mL bolus premix, Intravenous, Once sodium chloride (Inhalant) 7 % nebulizer solution 4 mL, Inhalation, BID tamsulosin (Flomax) capsule 0.4 mg, Oral, QDAY valproate (Depacon) 500 mg in 0.9% NaCl IV 55 mL IVPB, Intravenous, Every 6 Hours (03,09,15,21) ?? [COMPLETED] lactated ringers IV bolus, Intravenous, Once ?? CONTINUOUS MEDICATIONS: PRN MEDICATIONS: 0.9% NaCl injection 1-10 mL, Intracatheter, PRN acetaminophen (Tylenol) tablet 500 mg, Enteral Tube, q4h PRN artificial tears ophthalmic solution 1 drop, Each Eye, TID PRN bisacodyl (Dulcolax) suppository 10 mg, Rectal, QDAY PRN EPINEPHrine-NaCl 0.9% syringe, , PRN fentaNYL (PF) (Sublimaze) injection 25 mcg, Intravenous, q1h PRN ?? lidocaine 1% (Xylocaine-MPF) - EPINEPHrine 1:100,000 injection, , PRN PHYSICAL EXAM: Gen: no acute distress, resting comfortably HEENT: trach in place 6-0 cuffed Shiley, left neck incision c/d/i no fluctuance or significant edema. ASSESSMENT: Mojgan Tabor is a 62 year old male with a PMH significant for R. Occipital stroke (2015), head injury, seizures, Alzheimer's, Right BKA, refractory epilepsy, dysphasia w/PEG tube placement on 03/25/22 who is seen in consultation for Zenker's diverticulum. Recently seen outpatient with plans for elective surgery for his known Zenker's diverticulum, however he is again admitted with aspiration PNA.Now s/p transcervical Zenker's diverticulectomy, tracheostomy 07/15/22. PLAN: - Please have trach obturator in bag and prominently displayed at head of bed - Please have sign in room/above bed stating: ENT only to cut trach sutures, change trach ties, change/downsize trach - Please have an extra same size trach tube (6-0 cuffed), one-size small trach tube (4-0 cuffed), trach ties, and suture removal kit at bedside - Routine trach care, ok to suction and clean/remove/exchange inner cannula - plan for possible MBS when neurologically appropriate with HOSPITAL PHARMACY TECHNICIAN Marcella Thomas. ENT will coordinate. Portillo Flynn MD PGY-5 Otolaryngology - Head and Neck Surgery 07/16/22 9:05 AM MOTIVE PAINT TECHNICIAN * Kortney Cruz RCP - 07/15/2022 4:42 PM CST IPV placed on hold due to some bleeding around new trach MOTIVE PAINT TECHNICIAN * Raisa Vee MD - 07/15/2022 11:44 AM CST Images from the original note were not included. MEDICAL ICU Progress Note 07/15/2022 at 11:44 AM Admit Date: 06/27/2022 LOS: 17 days Brief Hospital Course: Mojgan Tabor is a 62 year old male??w/ PMHx significant for CVA with residual L sided defects, history of seizure disorder, dementia, dysphagia with recurrent aspiration (PEG-dependent), Zenker diverticulum, hypertension, BPH, PAD s/p L AKA d/t non-healing foot wound (02/2022), who initially presented to [facility] ED on 06/28 with complaints of hypoxia. The patient is a shelter resident at [facility]. Imaging in ED showed likely aspiration pneumonia, for which he was started on antibiotics. ENT was consulted for possible surgical intervention with his Zenker diverticulum. On 07/02 the patient was noted to have R hemithorax opacification with mediastinal shift. Pulmonary Medicine was consulted on 07/03, and due to recurring events of mucus plugging with desaturations, the patient was transferred to the ICU for further evaluation and management. Upon arrival, patient underwent awake bronchoscopy with suction of mucus plugs and had initial radiographic improvement and also in oxygenation. ICU course was c/b atelectasis of R lung with haziness of LLL for which patient underwentintubation and bronchoscopy on 07/06/2022 with improved chest xray post bronchoscopy but with persistently collapsed RLL and bedside ultrasound with collapsed RLL with curtain sign on the right hemithorax and small Effusion on the Right; IPV initiated; Continuous EEG started by neurology. Patient wasunable to be weaned off the ventilator due to neurological dysfunction, increased secretions. Plan was discussed with ENT with tentative plan of zenker's diverticulum removal on 07/15/2021. Subjective: Interval History: OR for Zenkers diverticulum and surgical trach today. Seen and examined with family at beside aftersurgery. Patient is still sedated from surgery so becomes apneic on SBT. Will attempt again later today. Otherwise doing well. ROS wnl. OBJECTIVE: Temp: [97.5 ??F (36.4 ??C)-98.3 ??F (36.8 ??C)] 97.5 ??F (36.4 ??C) Pulse: [70-85] 85 Resp: [10-24] 22 BP: (110-145)/(61-81) 135/68 Arterial Line BP #1: (122)/(59) 122/59 O2 %: [25 %-40 %] 40 % Intake/Output Summary (Last 24 hours) at 07/15/2022 1144 Last data filed at 07/15/2022 1039 Gross per 24 hour Intake 3017.07 ml Output 2500 ml Net 517.07 ml Physical Exam: General: Lying in bed, Elderly, Tracheostomy site in place. Trach to vent on ASV HEENT: PERRL, EOMI, MMM, No JVD, OG/ET Tube in place Lungs: CTAB no w/r/r Heart: RRR no m/r/g Abdomen: S/NT/ND/BS x4, Extremity: No Edema, Pulses 2+ Skin: Warm and dry. No rashes or bruising noted. Neurological: Trach to vent. Still sedated from surgery so unable to do a comprehensive neuro exam.Moves all extremities Intake/Output Summary (Last 24 hours) at 07/15/2022 1144 Last data filed at 07/15/2022 1039 Gross per 24 hour Intake 3017.07 ml Output 2500 ml Net 517.07 ml Vitals Pulse: 85 SpO2: 100 % Ventilator Information Ventilator ID: [id number] Ventilation Rate SET VENTILATION RATE (bpm): 10 bpm OBSERVED VENTILATION RATE (bpm): 13 bpm Insp Time (sec): 2 sec Insp Flow (L/Min): 60 l/Min Insp rise/Ramp (sec): 0.05 Sec ETS (%): 25 % I:E Ratio: 1:2 Actual I:E Ratio: 1:3 f/VT (RSBI): 86 Volumes SET TIDAL VOLUME (mL): 0 ML EXHALED TIDAL VOLUME (ml): 338 ml Spontaneous Tidal Volume (mL): 53 ML Observed Minute Ventilation (L/m): 8 Liters/Minute Ventilator Pressures OBSERVED PEAK INSPIRATORY PRESSURE (cm H2O): 23 cm H2O Pressure Support: 8 cm H2O PLATEAU PRESSURE (cm H2O): 17 cm H2O Mean Airway Pressure (cm H2O): 9 cm H2O PEEP/CPAP: 5 cm H20 Actual PEEP (Intrinsic): 5 cm H20 Safety & Alarms Airway Emergency Supplies Available: Resuscitation Bag;Resuscitation Bag with PEEP Valve;Appropriate Size Mask;Oxygen Connecting Tubing;Extra Trach Same Size;Extra Trach Smaller Size;Obturator Humidity Temp (C): 37 Celsius Humidifier alarm [...] secs Pulmonary Suctioning Suctioned?: Yes Suction Mode: Oral;ET Tube Secretion Consistency: Thick Secretion Color: White Secretions Amount: Moderate Hyperoxygenated prior to suctioning?: Yes Labs: CBC: Recent Labs Component Name 07/15/22 0401 07/14/22 0411 07/13/22 041 WBC 6.7 6.8 8.6 HGB 8.4* 8.2* 8.9* BMP: Recent Labs Component Name 07/15/22 0401 07/14/22 0411 07/13/223 NA 143 139 143 CL 107 104 108* CO2 26 25 26 BUN 26 34* 36* CREATININE 1.13 1.30* 1.36* CALCIUM 9.6 9.6 9.4 MAGNESIUM 1.8 1.8 1.8 PHOS 4.0 3.0 2.7* LFT: Recent Labs Component Name 06/30/22 1039 06/27/22221406/21/22 1926 PROT 6.2 8.3 8.3 ALB 2.2* 3.4 3.2* ALKPHOS 65 95 88 AST 13 19 19 ALT 5 6 10 Coagulation: Recent Labs Component Name 06/27/22221405/11/22 1309 03/11/22 1059 PT 12.8 13.5 15.4* INR 1.0 1.0 1.2 Cardiac markers: Recent Labs Component Name 07/11/22 0040 07/01/22 1634 06/28/22 0141 06/27/22 2215 05/30/22 1750 03/08/22 1455 12/31/21 0412 CKTOTAL 49 42 - - - - 77 TROPONINI - - <0.010 <0.010 <0.010 - - - = values in this interval not displayed. MICROBIOLOGY Microbiology Results (Displays last 21 days for this encounter ONLY) Procedure Component Value - Date/Time CULTURE BRONCHIAL WASHING+GRAM STAIN [[id number]] Collected: 07/05/222230 Lab Status: Final result Specimen: Microbiology from Bronchial Washings Updated: 07/07/22 1552 Culture No growth Gram Stain Rare Polymorphonuclear cells Rare Squamous epithelial cells No organisms seen CULTURE URINE [[id number]] Collected: 07/04/22 0145 Lab Status: Final result Specimen: Urine Clean Catch Updated: 07/05/22 0822 Culture Urine 10,000-50,000 CFU/mL urogenital heidi CULTURE BLOOD FUNGUS [[id number]] (Normal) Collected: 06/30/22 2045 Lab Status: Preliminary result Specimen: Blood Peripheral Updated: 07/12/22 0822 Culture No fungus isolated RESPIRATORY PANEL WITH SARS-COV-2 BY PCR (STL) [[id number]] (Normal) Collected: 06/30/22 1952 Lab Status: Final result Specimen: Microbiology from Nasopharyngeal Updated: 07/01/22 0014 Adenovirus PCR Not detected Coronavirus 229E PCR Not detected Coronavirus HKU1 PCR Not detected Coronavirus NL63 PCR Not detected Coronavirus OC43 PCR Not detected COVID-19 PCR Not detected Human Metapneumovirus PCR Not detected Human Rhinovirus/Enterovirus PCR Not detected Influenza A PCR Not detected Influenza B PCR Not detected Parainfluenza Virus 1 PCR Not detected Parainfluenza Virus 2 PCR Not detected Parainfluenza Virus 3 PCR Not detected Parainfluenza Virus 4 PCR Not detected Respiratory Syncytial Virus PCR Not detected Bordetella parapertussis PCR Not detected Bordetella pertussis PCR Not detected Chlamydia pneumoniae PCR Not detected Mycoplasma pneumoniae PCR Not detected Narrative: This nucleic amplification assay has received FDA authorization via the [employer]. CULTURE BLOOD [[id number]] (Normal) Collected: 06/30/22 1625 Lab Status: Final result Specimen: Blood Peripheral Updated: 07/05/22 1901 Culture No growth day 5 CULTURE BLOOD [[id number]] (Normal) Collected: 06/30/22 1611 Lab Status: Final result Specimen: Blood Peripheral Updated: 07/05/22 1901 Culture No growth day 5 CULTURE MRSA [[id number]] (Abnormal) Collected: 06/29/22 1242 Lab Status: Final result Specimen: Microbiology from Nasal Updated: 06/30/22 2139 Culture Growth of Staphylococcus aureus methicillin-resistant (MRSA) Narrative: Methicillin-resistant Staphylococci (MRSA) are resistant to all currently available beta-lactam antibiotics with the exception of the newer cephalosporins with anti-MRSA activity. Contact precautionsrequired. LEGIONELLA ANTIGEN URINE [[id number]] (Normal) Collected: 06/28/22 0348 Lab Status: Final result Specimen: Urine Updated: 06/28/22 1005 Legionella Antigen Urine Negative Narrative: This assay detects Legionella pneumophila serogroup one (1) antigen. A negative test result does not rule out the possibility of Legionella infection due to other serogroups or species of Legionella.A positive result may indicate a recent or remote infection with serogroup 1. SARS-COV-2 (COVID-19) FLU A/B RSV PCR RAPID [[id number]] (Normal) Collected: 06/27/222222 Lab Status: Final result Specimen: Microbiology from Nasopharyngeal Updated: 06/27/22 2310 COVID-19 PCR Not detected Influenza A PCR Not detected Influenza B PCR Not detected RSV PCR Not detected Narrative: This nucleic acid amplification assay has been authorized by the Food and Drug administration (FDA)under an Emergency??Use Authorization (EUA).?? This test is only authorized for the duration of time the declaration that circumstances exist justifying the authorization of emergency use of in vitrodiagnostic tests for detection of SARS-CoV-2 virus and/or diagnosis of COVID-19 infection under section 564(b)(1) of the Act, 21 U.S.C 360bbb-3 (b)(1), unless the authorization is terminated or revoked sooner. Fact Sheets for this EUA assay are available upon request. CULTURE BLOOD [[id number]] (Normal) Collected: 06/27/222214 Lab Status: Final result Specimen: Blood Peripheral Updated: 07/03/22 0200 Culture No growth day 5 CULTURE BLOOD [[id number]] (Normal) Collected: 06/27/222199 Lab Status: Final result Specimen: Blood Peripheral Updated: 07/03/22 0200 Culture No growth day 5 IMAGING No results found. Medications ??? 0.9% NaCl 3 mL Intracatheter q8h ??? albuterol 2.5 mg Inhalation q12h ??? artificial tears Each Eye q8h ??? aspirin 81 mg Enteral Tube QDAY ??? atorvastatin 40 mg Enteral Tube QDAY ??? chlorhexidine 15 mL Mouth/Throat BID ??? cloBAZam 20 mg Enteral Tube BID ??? famotidine 20 mg Enteral Tube QDAY ??? lacosamide 200 mg Intravenous BID ??? levETIRAcetam 500 mg Intravenous q12h ??? oxybutynin 5 mg Enteral Tube BID ??? polyethylene glycol 3350 17 g Enteral Tube QDAY ??? sodium chloride (Inhalant) 4 mL Inhalation BID ??? tamsulosin 0.4 mg Oral QDAY ??? valproate 500 mg Intravenous Every 6 Hours (03,09,15,21) Continuous Medications PRN Medications ??? SALINE LOCK, INSERT AND MAINTAIN AND 0.9% NaCl AND 0.9% NaCl ??? acetaminophen ??? artificial tears ??? bisacodyl ??? EPINEPHrine-NaCl 0.9% ??? fentaNYL (PF) ??? lidocaine 1 % - EPINEPHrine 1:[id number] ASSESSMENT: Epilepsy, unspecified, not intractable, without status epilepticus ([facility]) POA: Yes Muscle weakness (generalized) POA: Yes Hemiplegia and 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- dominant side ([facility]) POA: Yes Acute encephalopathy POA: Yes Sepsis without acute organ dysfunction ([facility]) POA: Yes PAD (peripheral artery disease) ([facility]) POA: Yes History of stroke POA: Yes Protein-calorie malnutrition, unspecified severity ([facility]) POA: Yes Aspiration into airway POA: Yes Leukocytosis, unspecified type POA: Yes Tachycardia POA: Yes Hypoxia POA: Yes Acute respiratory failure with hypoxia ([facility]) POA: Yes Pneumonia of right lower lobe due to infectious organism POA: Yes Atelectasis, right POA: Yes Contrast-induced nephropathy POA: Yes Zenker diverticula POA: Yes Hypernatremia POA: No Hyperkalemia POA: No PLAN: Neurological -Has seizure disorder: On depakote 500 mg q6h, Clobazam 20 mg bid, - Keppra 500mg bid and Vimpat 200 mg BID -Continue ASA -Lipitor 40 mg daily -Aspiration precautions -Seizure precautions -Follow neurology recommendations Cardiovascular: -Continue ASA -Keep MAP >65 Pulmonary: -Trach to vent on ASV 120% for now. Will try to place on SBT today and try to wean of mechanical ventilation in the coming days. -Has complicated 7 days of antibiotics. GI: -Zenker diverticulum s/p surgery on 07/15 ENT -Protonix 40 mg daily -Miralax 17 gm daily -Continue tube feeding Renal: -Continue FWF at 250cc q6h. Will monitor Na daily with CMP. -Continue Flomax 0.4mg daily -Oxybutynin 5 mg bid -Electrolytes: Monitor chem 7 and Mg every 24 hours and replace Mg if less than1.8 or if K < 3.5 -Urinary retention: Straight cath as needed Endocrine: -Sliding scale to keep between glucose between 140 - 180 I.D.: -Completed Zosyn for 7 days Heme/Onc: Transfusion Protocol: Hb < 7, Plt < 10 LDA: Peripheral IV Anterior;Left;Upper Arm (Active) Placement Date/Time: 07/10/22 0200 Orientation: Anterior;Left;Upper Location: Arm Name/Credentials of person who placed: Kandi Olson IV Catheter Size: 20 Gauge Technique: Ultrasound Guidance Number of days: 4 Enteral - Percutaneous Endoscopic Gastrostomy Abdomen;Midline;Upper (Active) Placement Date/Time: 03/25/221653 Name/Credentials of person who placed: Jolynn Ann MD Type: Percutaneous Endoscopic Gastrostomy Tube Location: Abdomen;Midline;Upper Size (FR): 24 Procedure Tolerance: Well Number of days: 111 ETT Endotracheal Tube 8 MM (Active) Placement Date/Time: 07/05/222127 Person who placed: Shannon Nino MD Mask Ventilation: easy mask Induction: Rapid Sequence Blade Type: King Blade Size: 4 Support Device: Video Laryngoscope Device: Endotracheal Tube Location: Oral Tube s... Number of days: 8 Other Wound Anterior;Lower;Proximal;Right Arm (Active) Date/Time: 06/29/221999 Orientation: Anterior;Lower;Proximal;Right Location: Arm Number of days: 14 Other Wound Left Ear (Active) Date/Time: 07/03/221839 Orientation: Left Location: Ear Number of days: 10 Other Wound Right Ear (Active) Date/Time: 07/03/221839 Orientation: Right Location: Ear Number of days: 10 Prophylaxis: DVT prophylaxis: [x] Lovenox 40mg , [] Lovenox 30mg, [] Sq Heparin GI prophylaxis: Pepcid Aspiration precautions with elevation of HOB by 30 degrees. Fluids: None. On TF. Diet: DIET TUBE FEEDING CONTINUOUS DIETARY NUTRITION SUPPLEMENTS DIET NPO Except: NO EXCEPTIONS Activity: Ad Merline Disposition: ICU Monitoring Code: Full Code Raisa Vee M.D. Pulmonary / Critical Care Fellow Division of Pulmonary, Critical Care, & Sleep Medicine [facility] 07/15/22 MOTIVE PAINT TECHNICIAN Associated attestation - Artemio Abarca MD - 07/15/2022 3:37 PM AUTOMOTIVE PAINT TECHNICIAN Medical ICU Attending Note I have seen and examined the patient with the resident/fellow. Please see note for further details. In brief, Mojgan Tabor is a 62 year old male admitted to the ICU for recurrent aspiration and acutehypoxic respiratory failure requiring intubation. ASSESSMENT/PLAN: Critical care was necessary to treat or prevent life-threatening deterioration of the following: Epilepsy, unspecified, not intractable, without status epilepticus (CMS/HCC) POA: Yes Muscle weakness (generalized) POA: Yes Hemiplegia and 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- dominant side (CMS/HCC) POA: Yes Acute encephalopathy POA: Yes Sepsis without acute organ dysfunction (CMS/HCC) POA: Yes PAD (peripheral artery disease) (CMS/HCC) POA: Yes History of stroke POA: Yes Protein-calorie malnutrition, unspecified severity (CMS/HCC) POA: Yes Aspiration into airway POA: Yes Leukocytosis, unspecified type POA: Yes Tachycardia POA: Yes Hypoxia POA: Yes Acute respiratory failure with hypoxia (CMS/HCC) POA: Yes Pneumonia of right lower lobe due to infectious organism POA: Yes Atelectasis, right POA: Yes Contrast-induced nephropathy POA: Yes Zenker diverticula POA: Yes Hypernatremia POA: No Hyperkalemia POA: No The plan of care consists of: Neuro: Cont sedation for RASS 0. Remains encephaloapthic. Slightly more awake today. Keppra and vimpat Start PT/OT Neuro checks Respiratory: Cont full vent support. Underwent trach. Start vent weaning tomorrow Needs bronchoscopy prn for airway clearance. Cont IPV, vest, and bronchodilators for now Change setting to PAC 15/5 HOB>30; Monitor for Respiratory distress Cardiovascular/Hemodynamics: Hemodynamic monitoring. Goal MAP ~65mmHg GI/Nutrition: TF Has PEG GI prophylaxis . Renal/lytes: Supportive care Heme: Transfuse if Hb <7.0 gm/dl ID: Antibiotics: completed zosyn course Disposition: ICU monitoring I spent 31 minutes in full attendance with this critically-ill patient. Time spent was exclusive ofseparately billed procedures, treating other patients, and teaching time. I have reviewed and agreewith resident/fellow documentation. Pt. is at high risk for [...] discussion is necessary for determining treatment decisions. Critical Care Attending: Artemio Abarca MD * Kortney Cruz RCP - 07/15/2022 11:20 AM CST Returned from OR, placed back on vent with documented settings. small amount of bloody secretions MOTIVE PAINT TECHNICIAN * Rodrigo Lobo MD - 07/15/2022 9:56 AM CST ENT Plan of Care S/p transcervical Zenker's diverticulectomy and open tracheostomy. Plan - When mental status is appropriate, patient will need a MBS with Marcella Thomas (ENT HOSPITAL PHARMACY TECHNICIAN) to evaluate swallow prior to initiating oral diet - Please contact us when ready for MBS so that it can be arranged - Maintain NPO in the meantime Tracheostomy Postop Care Instructions: - Please have trach obturator in bag and prominently displayed at head of bed. - Please have sign in room/above bed stating: ENT only to cut trach sutures, change trach ties, change/downsize trach . - Please have an extra same size trach tube (6-0 cuffed Shiley), one-size small trach tube (4-0 cuffed Shiley), trach ties, and suture removal kit at bedside. - Routine trach care, ok to suction and clean/remove/exchange inner cannula BID and PRN. - Plan for ENT to do first trach change around POD#3-5 (07/18-07/20) pending patient's clinical and respiratory status. Rodrigo Lobo MD Otolaryngology - Head & Neck Surgery 07/15/2022 9:58 AM MOTIVE PAINT TECHNICIAN * James Oliveira RN - 07/15/2022 9:36 AM CST Case Management Progress Note Anticipated level of care at discharge: [facility] - Medicaid Discharge Plan: SNF [facility] SW following for SNF d/c ([facility] tentatively accepted) Patient remains in the ICU, intubated, sedated, on the vent. Going to the OR today 07/15/2022 for Transoral vs transvervical zenkers diverticulectomy, open tracheostomy. Readmission: Yes Readmission Risk: READMISSION RISK SCORE is 26 at 9:36 AM 07/15/2022. Anticipated Discharge Date: Anticipated Discharge Date: 07/22/22 Patient/Family provided with list of resources? Unknown Preferred Provider / High Quality Network List given?: Unknown Reason for provider choice: Unknown Transportation at Discharge: Ambulance Transportation to MD:Ambulance Equipment at Home: Equipment at Home: Facility Equipment Hunger Screening: Within the past 12 months, you worried that your food would run out before you got the money to buymore.: Never true Within the past 12 months, the food you bought just didn't last and you didn't have money to get more.: Never true Medication affordability concerns: No James Oliveira, MSN, lab tester Office:[phone] 07/15/2022 MOTIVE PAINT TECHNICIAN * Kortney Cruz RCP - 07/15/2022 9:30 AM CST PT GOING TO OR NOW FOR TRACHEOSTOMY. MOTIVE PAINT TECHNICIAN * Saloni Payan OT - 07/15/2022 9:25 AM CST [facility] Department of Physical Medicine & Rehabilitation Progress Note Patient: Mojgan Tabor [facility] Record Number: [id number] Date of : 1960 Age: [age] year old 07/15/22 0925 Therapy on Hold Therapy on Hold Chart Reviewed;Surgery;New Order Required for Therapy Pt to OR under general anesthesia. Per PMR guidelines, pt to be placed on hold from therapy services at this time. Please reorder inpatient therapy when pt appropriate for mobilization. Thank you. MOTIVE PAINT TECHNICIAN * Mandi Ray, PT - 07/15/2022 9:12 AM CST [facility] Department of Physical Medicine & Rehabilitation Progress Note Patient: Mojgan Tabor [facility] Record Number: [id number] Date of : 1960 Age: [age] year old 07/15/22 0912 Therapy on Hold Therapy on Hold Chart Reviewed;Surgery;New Order Required for Therapy Please re-consult physical therapy when pt appropriate for functional mobility evaluation. Thank you. MOTIVE PAINT TECHNICIAN * Alden Hutrado MD - 07/15/2022 6:46 AM CST Otolaryngology Progress Note 07/15/2022 SUBJECTIVE: NAEO Intubated, sedated VITALS: Temp (30hrs) Max:98.3 ??F (36.8 ??C) Vitals: 07/15/22 0400 07/15/22 0420 07/15/22 0500 07/15/22 0600 BP: 137/74 145/73 134/74 Pulse: 75 82 75 71 Resp: 14 14 24 Temp: 98.1 ??F (36.7 ??C) SpO2: 99% 100% 99% 99% Weight: Height: Intake/Output Summary (Last 24 hours) at 07/15/2022 0646 Last data filed at 07/15/2022 0637 Gross per 24 hour Intake 1530.07 ml Output 1500 ml Net 30.07 ml MEDICATIONS FOR CURRENT ENCOUNTER: SCHEDULED MEDICATIONS: 0.9% NaCl injection 3 mL, Intracatheter, q8h albuterol (Proventil;Ventolin) (5 MG/ML) 0.5% nebulizer solution 2.5 mg, Inhalation, q12h artificial tears ophthalmic ointment, Each Eye, q8h aspirin chew tablet 81 mg, Enteral Tube, QDAY atorvastatin (Lipitor) tablet 40 mg, Enteral Tube, QDAY chlorhexidine (Peridex) 0.12 % oral solution 15 mL, Mouth/Throat, BID cloBAZam (Onfi) tablet 20 mg, Enteral Tube, BID famotidine (Pepcid) tablet 20 mg, Enteral Tube, QDAY oxybutynin (Ditropan) tablet 5 mg, Enteral Tube, BID polyethylene glycol 3350 (Miralax) packet 17 g, Enteral Tube, QDAY sodium chloride (Inhalant) 7 % nebulizer solution 4 mL, Inhalation, BID tamsulosin (Flomax) capsule 0.4 mg, Oral, QDAY valproate (Depacon) 500 mg in 0.9% NaCl IV 55 mL IVPB, Intravenous, Every 6 Hours (03,09,15,21) [START ON 07/16/2022] lacosamide (Vimpat) injection 200 mg, Intravenous, BID ?? [START ON 07/16/2022] levETIRAcetam (Keppra) 500 mg in 100 mL IVPB, Intravenous, q12h CONTINUOUS MEDICATIONS: ?? lactated ringers infusion, Intravenous, Continuous PRN MEDICATIONS: 0.9% NaCl injection 1-10 mL, Intracatheter, PRN acetaminophen (Tylenol) tablet 500 mg, Enteral Tube, q4h PRN artificial tears ophthalmic solution 1 drop, Each Eye, TID PRN bisacodyl (Dulcolax) suppository 10 mg, Rectal, QDAY PRN ?? fentaNYL (PF) (Sublimaze) injection 25 mcg, Intravenous, q1h PRN PHYSICAL EXAM: Gen: Intuabted, sedated, intermittently follows limited commands HEENT: neck soft, ETT in place. Airway landmarks palpable Pulm: Intubated, PEEP 5, FiO2 25 IMAGING CXR reviewed -- improvement in white out of right hemithorax (07/07), no new imaging ASSESSMENT: Mojgan Tabor is a 62 year old male with a PMH significant for R. Occipital stroke (2014), head injury, seizures, Alzheimer's, Right BKA, refractory epilepsy, dysphasia w/PEG tube placement on 03/25/22 who is seen in consultation for Zenker's diverticulum. Recently seen outpatient with plans for elective surgery for his known Zenker's diverticulum, however he is again admitted with aspiration PNA. PLAN: - Proceed to OR today for Transoral vs transvervical Zenkers diverticulectomy, open tracheostomy -Consent obtained and in chart -Contine to wean vent as able - Please call ENT with any questions or concerns Alden Hurtado MD Otolaryngology - Head and Neck Surgery 07/15/2022 MOTIVE PAINT TECHNICIAN * Myrna Hammond - 07/14/2022 5:08 PM CST Trucksmith consulted with staff on patient's conditions. Patient is expected to have surgery tomorrow. Pastoral care remains available continuously. 424/ Myrna Hammond 07/14/2022 5:09 PM MOTIVE PAINT TECHNICIAN * Raisa Vee MD - 07/14/2022 4:55 PM CST Images from the original note were not included. MEDICAL ICU Progress Note 07/14/2022 at 4:55 PM Admit Date: 06/27/2022 LOS: 16 days Brief Hospital Course: Mojgan Tabor is a 62 year old male??w/ PMHx significant for CVA with residual L sided defects, history of seizure disorder, dementia, dysphagia with recurrent aspiration (PEG-dependent), Zenker diverticulum, hypertension, BPH, PAD s/p L AKA d/t non-healing foot wound (02/2022), who initially presented to [facility] ED on 06/28 with complaints of hypoxia. The patient is a shelter resident at [facility]. Imaging in ED showed likely aspiration pneumonia, for which he was started on antibiotics. ENT was consulted for possible surgical intervention with his Zenker diverticulum. On 07/02 the patient was noted to have R hemithorax opacification with mediastinal shift. Pulmonary Medicine was consulted on 07/03, and due to recurring events of mucus plugging with desaturations, the patient was transferred to the ICU for further evaluation and management. Upon arrival, patient underwent awake bronchoscopy with suction of mucus plugs and had initial radiographic improvement and also in oxygenation. ICU course was c/b atelectasis of R lung with haziness of LLL for which patient underwentintubation and bronchoscopy on 07/06/2022 with improved chest xray post bronchoscopy but with persistently collapsed RLL and bedside ultrasound with collapsed RLL with curtain sign on the right hemithorax and small Effusion on the Right; IPV initiated; Continuous EEG started by neurology. Patient wasunable to be weaned off the ventilator due to neurological dysfunction, increased secretions. Plan was discussed with ENT with tentative plan of zenker's diverticulum removal on 07/15/2021. Subjective: Interval History: Patient was noted to be more alert today. Following commands. On SBT and doing well with good RSBI.Good cough reflex. However, still with significant secretions and therefore not a candidate to be weaned off the ventilator. Plan for trach tomorrow. ROS otherwise negative. OBJECTIVE: Temp: [97 ??F (36.1 ??C)-98.1 ??F (36.7 ??C)] 97.8 ??F (36.6 ??C) Pulse: [55-81] 78 Resp: [10-16] 11 BP: (99-142)/(58-85) 119/75 O2 %: [25 %] 25 % Intake/Output Summary (Last 24 hours) at 07/14/20221654 Last data filed at 07/14/2022 1600 Gross per 24 hour Intake 1938 ml Output 1750 ml Net 188 ml Physical Exam: General: Lying in bed, Elderly, Intubated on spontaneous breathing HEENT: PERRL, EOMI, MMM, No JVD, OG/ET Tube in place Lungs: CTAB no w/r/r Heart: RRR no m/r/g Abdomen: S/NT/ND/BS x4, Extremity: No Edema, Pulses 2+ Skin: Warm and dry. No rashes or bruising noted. Neurological: Intubated but awake and following commands Intake/Output Summary (Last 24 hours) at 07/14/20221654 Last data filed at 07/14/2022 1600 Gross per 24 hour Intake 1938 ml Output 1750 ml Net 188 ml Vitals Pulse: 78 SpO2: 98 % Ventilator Information Ventilator ID: [id number] Ventilation Rate SET VENTILATION RATE (bpm): 10 bpm OBSERVED VENTILATION RATE (bpm): 11 bpm Insp Time (sec): 2 sec Insp Flow (L/Min): 60 l/Min Insp rise/Ramp (sec): 0.05 Sec ETS (%): 25 % I:E Ratio: 1:2 Actual I:E Ratio: 1:1.5 f/VT (RSBI): 86 Volumes SET TIDAL VOLUME (mL): 400 ML EXHALED TIDAL VOLUME (ml): 416 ml Spontaneous Tidal Volume (mL): 344 ML Observed Minute Ventilation (L/m): 6.6 Liters/Minute Ventilator Pressures OBSERVED PEAK INSPIRATORY PRESSURE (cm H2O): 15 cm H2O Pressure Support: 8 cm H2O PLATEAU PRESSURE (cm H2O): 17 cm H2O Mean Airway Pressure (cm H2O): 9.7 cm H2O PEEP/CPAP: 5 cm H20 Actual PEEP (Intrinsic): 5 cm H20 Safety & Alarms Airway Emergency Supplies Available: Resuscitation Bag;Resuscitation Bag with PEEP Valve;Appropriate Size Mask Humidity Temp (C): 37 Celsius Humidifier alarm [...] secs Pulmonary Suctioning Suctioned?: Yes Suction Mode: Oral;ET Tube Secretion Consistency: Thick Secretion Color: White;Clear Secretions Amount: Copious Hyperoxygenated prior to suctioning?: Yes Labs: CBC: Recent Labs Component Name 07/14/2241007/13/2241207/12/22 0450 WBC 6.8 8.6 6.6 HGB 8.2* 8.9* 9.3* BMP: Recent Labs Component Name 07/14/22 04107/13/22 0413 07/12/22 0450 NA 139 143 143 CL 104 108* 109* CO2 25 26 25 BUN 34* 36* 42* CREATININE 1.30* 1.36* 1.58* CALCIUM 9.6 9.4 9.0 MAGNESIUM 1.8 1.8 1.9 PHOS 3.0 2.7* 3.4 LFT: Recent Labs Component Name 06/30/22 1039 06/27/22221406/21/22 1926 PROT 6.2 8.3 8.3 ALB 2.2* 3.4 3.2* ALKPHOS 65 95 88 AST 13 19 19 ALT 5 6 10 Coagulation: Recent Labs Component Name 06/27/22 2215 05/11/22 1309 03/11/22 1059 PT 12.8 13.5 15.4* INR 1.0 1.0 1.2 Cardiac markers: Recent Labs Component Name 07/11/22 0040 07/01/22 1634 06/28/22 0141 06/27/22 2215 05/30/22 1750 03/08/22 1455 12/31/21 0412 CKTOTAL 49 42 - - - - 77 TROPONINI - - <0.010 <0.010 <0.010 - - - = values in this interval not displayed. MICROBIOLOGY Microbiology Results (Displays last 21 days for this encounter ONLY) Procedure Component Value - Date/Time CULTURE BRONCHIAL WASHING+GRAM STAIN [[id number]] Collected: 07/05/222230 Lab Status: Final result Specimen: Microbiology from Bronchial Washings Updated: 07/07/22 1552 Culture No growth Gram Stain Rare Polymorphonuclear cells Rare Squamous epithelial cells No organisms seen CULTURE URINE [[id number]] Collected: 07/04/22 0145 Lab Status: Final result Specimen: Urine Clean Catch Updated: 07/05/22821 Culture Urine 10,000-50,000 CFU/mL urogenital heidi CULTURE BLOOD FUNGUS [[id number]] (Normal) Collected: 06/30/22 2045 Lab Status: Preliminary result Specimen: Blood Peripheral Updated: 07/12/22821 Culture No fungus isolated RESPIRATORY PANEL WITH SARS-COV-2 BY PCR ([facility]) [[id number]] (Normal) Collected: 06/30/221951 Lab Status: Final result Specimen: Microbiology from Nasopharyngeal Updated: 07/01/22 0014 Adenovirus PCR Not detected Coronavirus 229E PCR Not detected Coronavirus HKU1 PCR Not detected Coronavirus NL63 PCR Not detected Coronavirus OC43 PCR Not detected COVID-19 PCR Not detected Human Metapneumovirus PCR Not detected Human Rhinovirus/Enterovirus PCR Not detected Influenza A PCR Not detected Influenza B PCR Not detected Parainfluenza Virus 1 PCR Not detected Parainfluenza Virus 2 PCR Not detected Parainfluenza Virus 3 PCR Not detected Parainfluenza Virus 4 PCR Not detected Respiratory Syncytial Virus PCR Not detected Bordetella parapertussis PCR Not detected Bordetella pertussis PCR Not detected Chlamydia pneumoniae PCR Not detected Mycoplasma pneumoniae PCR Not detected Narrative: This nucleic amplification assay has received FDA authorization via the [employer]. CULTURE BLOOD [[id number]] (Normal) Collected: 06/30/22 1625 Lab Status: Final result Specimen: Blood Peripheral Updated: 07/05/22 1901 Culture No growth day 5 CULTURE BLOOD [[id number]] (Normal) Collected: 06/30/22 1611 Lab Status: Final result Specimen: Blood Peripheral Updated: 07/05/22 1901 Culture No growth day 5 CULTURE MRSA [[id number]] (Abnormal) Collected: 06/29/22 1242 Lab Status: Final result Specimen: Microbiology from Nasal Updated: 06/30/22 2139 Culture Growth of Staphylococcus aureus methicillin-resistant (MRSA) Narrative: Methicillin-resistant Staphylococci (MRSA) are resistant to all currently available beta-lactam antibiotics with the exception of the newer cephalosporins with anti-MRSA activity. Contact precautionsrequired. LEGIONELLA ANTIGEN URINE [[id number]] (Normal) Collected: 06/28/22 0348 Lab Status: Final result Specimen: Urine Updated: 06/28/22 1005 Legionella Antigen Urine Negative Narrative: This assay detects Legionella pneumophila serogroup one (1) antigen. A negative test result does not rule out the possibility of Legionella infection due to other serogroups or species of Legionella.A positive result may indicate a recent or remote infection with serogroup 1. SARS-COV-2 (COVID-19) FLU A/B RSV PCR RAPID [[id number]] (Normal) Collected: 06/27/22 2223 Lab Status: Final result Specimen: Microbiology from Nasopharyngeal Updated: 06/27/22 2310 COVID-19 PCR Not detected Influenza A PCR Not detected Influenza B PCR Not detected RSV PCR Not detected Narrative: This nucleic acid amplification assay has been authorized by the Food and Drug administration (FDA)under an Emergency??Use Authorization (EUA).?? This test is only authorized for the duration of time the declaration that circumstances exist justifying the authorization of emergency use of in vitrodiagnostic tests for detection of SARS-CoV-2 virus and/or diagnosis of COVID-19 infection under section 564(b)(1) of the Act, 21 U.S.C 360bbb-3 (b)(1), unless the authorization is terminated or revoked sooner. Fact Sheets for this EUA assay are available upon request. CULTURE BLOOD [[id number]] (Normal) Collected: 06/27/222214 Lab Status: Final result Specimen: Blood Peripheral Updated: 07/03/22 0200 Culture No growth day 5 CULTURE BLOOD [[id number]] (Normal) Collected: 06/27/222199 Lab Status: Final result Specimen: Blood Peripheral Updated: 07/03/220 Culture No growth day 5 IMAGING No results found. Medications ??? 0.9% NaCl 3 mL Intracatheter q8h ??? albuterol 2.5 mg Inhalation q12h ??? artificial tears Each Eye q8h ??? aspirin 81 mg Enteral Tube QDAY ??? atorvastatin 40 mg Enteral Tube QDAY ??? chlorhexidine 15 mL Mouth/Throat BID ??? cloBAZam 20 mg Enteral Tube BID ??? divalproex sprinkle 500 mg Enteral Tube Every 6 Hours (03,09,15,21) ??? famotidine 20 mg Enteral Tube QDAY ??? lacosamide 200 mg Enteral Tube BID ??? levETIRAcetam 500 mg Enteral Tube BID ??? oxybutynin 5 mg Enteral Tube BID ??? polyethylene glycol 3350 17 g Enteral Tube QDAY ??? sodium chloride (Inhalant) 4 mL Inhalation BID ??? tamsulosin 0.4 mg Oral QDAY Continuous Medications PRN Medications ??? SALINE LOCK, INSERT AND MAINTAIN AND 0.9% NaCl AND 0.9% NaCl ??? acetaminophen ??? artificial tears ??? bisacodyl ??? fentaNYL (PF) ASSESSMENT: Epilepsy, unspecified, not intractable, without status epilepticus (CMS/HCC) POA: Yes Muscle weakness (generalized) POA: Yes Hemiplegia and 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- dominant side (CMS/HCC) POA: Yes Acute encephalopathy POA: Yes Sepsis without acute organ dysfunction (CMS/HCC) POA: Yes PAD (peripheral artery disease) (CMS/HCC) POA: Yes History of stroke POA: Yes Protein-calorie malnutrition, unspecified severity (CMS/HCC) POA: Yes Aspiration into airway POA: Yes Leukocytosis, unspecified type POA: Yes Tachycardia POA: Yes Hypoxia POA: Yes Acute respiratory failure with hypoxia (CMS/HCC) POA: Yes Pneumonia of right lower lobe due to infectious organism POA: Yes Atelectasis, right POA: Yes Contrast-induced nephropathy POA: Yes Zenker diverticula POA: Yes Hypernatremia POA: No Hyperkalemia POA: No PLAN: Neurological -Has seizure disorder: On depakote 500 mg q6h, Clobazam 20 mg bid, - Keppra 500mg bid and Vimpat 200 mg BID -Continue ASA -Lipitor 40 mg daily -Aspiration precautions -Seizure precautions -Follow neurology recommendations Cardiovascular: -Continue ASA -Keep MAP >65 Pulmonary: -Continue mechanical ventilation but on spontaneous breathing and doing well. -Not a candidate for liberation from the ventilator at this time. -Has complicated 7 days of antibiotics. -Management of zenker's diverticulum as per ENT- surgery likely on 07/15/22 with tracheostomy GI: -Zenker diverticulum as above -Protonix 40 mg daily -Miralax 17 gm daily -Continue tube feeding Renal: -Continue FWF at 250cc q6h. Will monitor Na daily with CMP. -Continue Flomax 0.4mg daily -Oxybutynin 5 mg bid -Electrolytes: Monitor chem 7 and Mg every 24 hours and replace Mg if less than1.8 or if K < 3.5 Endocrine: -Sliding scale to keep between glucose between 140 - 180 I.D.: -Completed Zosyn for 7 days Heme/Onc: Transfusion Protocol: Hb < 7, Plt < 10 LDA: Peripheral IV Anterior;Left;Upper Arm (Active) Placement Date/Time: 07/10/22 0200 Orientation: Anterior;Left;Upper Location: Arm Name/Credentials of person who placed: Kandi Olson IV Catheter Size: 20 Gauge Technique: Ultrasound Guidance Number of days: 4 Enteral - Percutaneous Endoscopic Gastrostomy Abdomen;Midline;Upper (Active) Placement Date/Time: 03/25/22 1654 Name/Credentials of person who placed: Jolynn Ann MD Type: Percutaneous Endoscopic Gastrostomy Tube Location: Abdomen;Midline;Upper Size (FR): 24 Procedure Tolerance: Well Number of days: 111 ETT Endotracheal Tube 8 MM (Active) Placement Date/Time: 07/05/222127 Person who placed: Shannon Nino MD Mask Ventilation: easy mask Induction: Rapid Sequence Blade Type: King Blade Size: 4 Support Device: Video Laryngoscope Device: Endotracheal Tube Location: Oral Tube s... Number of days: 8 Other Wound Anterior;Lower;Proximal;Right Arm (Active) Date/Time: 06/29/221999 Orientation: Anterior;Lower;Proximal;Right Location: Arm Number of days: 14 Other Wound Left Ear (Active) Date/Time: 07/03/221839 Orientation: Left Location: Ear Number of days: 10 Other Wound Right Ear (Active) Date/Time: 07/03/221839 Orientation: Right Location: Ear Number of days: 10 Prophylaxis: DVT prophylaxis: [x] Lovenox 40mg , [] Lovenox 30mg, [] Sq Heparin DVT ppx on hold for ENT surgery tomorrow GI prophylaxis: Pepcid Aspiration precautions with elevation of HOB by 30 degrees. Fluids: None. On TF. NPO after midnight Diet: DIET NPO Except: NO EXCEPTIONS DIET TUBE FEEDING CONTINUOUS DIETARY NUTRITION SUPPLEMENTS DIET NPO Except: NO EXCEPTIONS Activity: Ad Merline Disposition: ICU Monitoring Code: Full Code Raisa Vee M.D. Pulmonary / Critical Care Fellow Division of Pulmonary, Critical Care, & Sleep Medicine [facility] 07/14/22 MOTIVE PAINT TECHNICIAN Associated attestation - Artemio Abarca MD - 07/14/2022 5:45 PM AUTOMOTIVE PAINT TECHNICIAN Medical ICU Attending Note I have seen and examined the patient with the resident/fellow. Please see note for further details. In brief, Mojgan Tabor is a 62 year old male admitted to the ICU for recurrent aspiration and acutehypoxic respiratory failure requiring intubation. ASSESSMENT/PLAN: Critical care was necessary to treat or prevent life-threatening deterioration of the following: Epilepsy, unspecified, not intractable, without status epilepticus (CMS/HCC) POA: Yes Muscle weakness (generalized) POA: Yes Hemiplegia and 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- dominant side (CMS/HCC) POA: Yes Acute encephalopathy POA: Yes Sepsis without acute organ dysfunction (CMS/HCC) POA: Yes PAD (peripheral artery disease) (CMS/HCC) POA: Yes History of stroke POA: Yes Protein-calorie malnutrition, unspecified severity (CMS/HCC) POA: Yes Aspiration into airway POA: Yes Leukocytosis, unspecified type POA: Yes Tachycardia POA: Yes Hypoxia POA: Yes Acute respiratory failure with hypoxia (CMS/HCC) POA: Yes Pneumonia of right lower lobe due to infectious organism POA: Yes Atelectasis, right POA: Yes Contrast-induced nephropathy POA: Yes Zenker diverticula POA: Yes Hypernatremia POA: No Hyperkalemia POA: No The plan of care consists of: Neuro: Cont sedation for RASS 0. Remains encephaloapthic. Slightly more awake today. Keppra and vimpat Start PT/OT Neuro checks Respiratory: Cont full vent support Needs bronchoscopy prn for airway clearance. Cont IPV, vest, and bronchodilators for now Agree with plans for trach, not a candidate for liberation from the vent Not a candidate for liberation due to weakness and encephaloapthy. Discussed with family weaning plans after tracheostomy ASV 100% PEEP 5 HOB>30; Monitor for Respiratory distress Cardiovascular/Hemodynamics: Hemodynamic monitoring. Goal MAP ~65mmHg GI/Nutrition: TF GI prophylaxis . Renal/lytes: Supportive care Heme: Transfuse if Hb <7.0 gm/dl ID: Antibiotics: completed zosyn course Disposition: ICU monitoring I spent 33 minutes in full attendance with this critically-ill patient. Time spent was exclusive ofseparately billed procedures, treating other patients, and teaching time. I have reviewed and agreewith resident/fellow documentation. Pt. is at high risk for [...] discussion is necessary for determining treatment decisions. Critical Care Attending: Artemio Abarca MD * Svetlana Lewis MD - 07/14/2022 1:13 PM CST Plan of Care Zenker's diverticulum with plan for transoral vs transcervical diverticulectomy and open tracheostomy tomorrow - consent obtained - NPO at midnight - Hold ASA in AM Svetlana Lewis MD General Surgery Resident 1:13 PM 07/14/2022 MOTIVE PAINT TECHNICIAN * Melany Tran, MINH/ONIN - 07/14/2022 12:51 PM CST Nutrition Re-Assessment Brief Synopsis: Patient is dx with malnutrition; ; Specific criteria can be found in assessment below Nutrition Plan: NPO Vital AF 1.2 Bruno at goal of 50 ml/hr. Provides 1440 kcal, 90 g protein, 133 g carbohydrate, and 973 ml free water +50 ml q 6 hrs free water flush or per MD if on IVF +100 ml q4 hrs free water flush or per MD if not on additional fluid Recommendations to Physician: Adjust TF formula to above-renal electrolytes wnl Comments: Pt scheduled for reassessment. Pt remains intubated and receiving Nepro @ 30ml/hr+1 packet of prostat. Recommend altering TF to above formula as renal electrolytes wnl. Above regimen will meet estimated protein demands with malnutrition on the ventilator. Pt to receive surgery on 07/15 w/ ENT. Last BM today. Assessment: Med/Surg History and Clinical Diagnoses: 62 year old male with PMH of seizures, stroke w/residual Lsided deficits, dementia, Zenker diverticulum, dysphagia, HTN, BPH, PAD s/p L AKA [facility] Diet order accuracy Current diet order: NPO Current tube feeding order: Nepro @ 30ml/hr Nutrition recommendation: alter/change nutrition order P.O.Intake for the past 48 hrs:No data recorded Food Allergies: No known food allergies GI Concerns: None Chewing/Swallowing: Other (Comment) (intubated) Pain affecting intake: No Admission weight: Weight: 47.6 kg (105 lb) (06/27/222130) Recent Weights/Methods 06/27/2022 2131 07/01/2022 0400 07/04/2022 0000 07/05/2022 0000 07/06/2022 0400 07/07/2022 0400 07/10/2022 0400 07/12/2022 0400 Weight: 47.6 kg (105 lb) 59 kg (130 lb) 60 kg (132 lb 4.4 oz) 59 kg (130 lb 1.1 oz) 57.5 kg (126 lb12.2 oz) 60.5 kg (133 lb 6.1 oz) 62.5 kg (137 lb 12.6 oz) 62 kg (136 lb 11 oz) Weight Method (Utilize Scales): Stated -- Bedscale Bedscale Bedscale Bedscale Bedscale Bedscale Wt Comments: reviewed, monitoring. Height: 185.4 cm (6' 1 ) IBW/lb (Calculated) Male: 184 , Malnutrition Etiology: Malnutrition in the context of: chronic disease, Malnutrition Severity: Severe BMI: Body mass index is 18.03 kg/m??. GI Concerns: None Nutrition Focused Physical Assessment: Loss of Subcutaneous Fat Orbital: Severe Buccal: Severe Chest/Ribs: Severe Muscle Loss Temples (Temporalis Muscle): Severe Clavicles (Pectoralis & Deltoids): Severe Shoulders (Deltoids): Severe Laboratory values reviewed. Recent Labs Component Name 07/14/22 0411 07/13/22 0413 07/12/22 0450 07/01/22 1634 06/30/22 1039 06/29/22 0709 06/27/22 2215 06/21/22 1926 BUN 34* 36* 42* - 7 - 17 14 CREATININE 1.30* 1.36* 1.58* - 0.58* - 0.78 0.58* NA 139 143 143 - 140 - 142 142 POTASSIUM 3.5 3.8 4.5 - 4.0 - 4.4 4.5 CL 104 108* 109* - 107 - 101 106 CO2 25 26 25 - 24 - 26 29 GLUCOSE 92 101 112 - 115 - 98 116* CALCIUM 9.6 9.4 9.0 - 9.5 - 10.3* 10.7* PROT - - - - 6.2 - 8.3 8.3 ALB - - - - 2.2* - 3.4 3.2* TBILI - - - - 0.3 - 0.3 0.3 ALKPHOS - - - - 65 - 95 88 ALT - - - - 5 - 6 10 AST - - - - 13 19 19 ANIONGAP 14 13 14 - 13 - 19* 12 BCR 26* 26* 27* - 12 - 22 24* OSMOLALITY 295 304* 307* - 289 - 296 295 AGRATIO - - - - 0.6* - 0.7* 0.6* EGFR 63* 59* 49* - >90 - >90 >90 - = values in this interval not displayed. Medications noted. Current Facility-Administered Medications Medication ??? 0.9% NaCl injection 3 mL And ??? 0.9% NaCl injection 1-10 mL ??? acetaminophen (Tylenol) tablet 500 mg ??? albuterol (Proventil;Ventolin) (5 MG/ML) 0.5% nebulizer solution 2.5 mg ??? artificial tears ophthalmic ointment ??? artificial tears ophthalmic solution 1 drop ??? aspirin chew tablet 81 mg ??? atorvastatin (Lipitor) tablet 40 mg ??? bisacodyl (Dulcolax) suppository 10 mg ??? chlorhexidine (Peridex) 0.12 % oral solution 15 mL ??? cloBAZam (Onfi) tablet 20 mg ??? divalproex sprinkle (Depakote Sprinkle) capsule 500 mg ??? famotidine (Pepcid) tablet 20 mg ??? fentaNYL (PF) (Sublimaze) injection 25 mcg ??? lacosamide (Vimpat) tablet 200 mg ??? levETIRAcetam (Keppra) tablet 500 mg ??? oxybutynin (Ditropan) tablet 5 mg ??? polyethylene glycol 3350 (Miralax) packet 17 g ??? sodium chloride (Inhalant) 7 % nebulizer solution 4 mL ??? tamsulosin (Flomax) capsule 0.4 mg Skin/Wound: Exceptions (right arm) Estimated Energy Needs: KCAL: 2812-2244 (20-25kcal/kg of ABW) Protein (g): 70-87 (1.2-1.5gm/kg of ABW) Fluid (ml): 1 ml/kcal Needs based on: Kcal/kg- (Comment) (58kg of ABW) Recommended Access Route: TF Education needed: None Education Provided: Not appropriate Nutrition Care Process (2) Nutrition Diagnostic Statement (2): Malnutrition related to:: inadequate protein-energy intake as evidenced by:: loss of muscle mass;loss of subcutaneous fat Nutrition Diagnostic Statement Progress: Nutrition problem continues Nutrition Intervention: Enteral nutrition: Monitoring: GI, TF, WT, labs, medications Evaluation: Nutrition Goal: Total intake will meet estimated nutrient needs Nutrition Goal Timeframe: Throughout stay Nutrition Goal Progress: Continue with current goal Ascom [id number] Ascom [id number] MOTIVE PAINT TECHNICIAN * Meeta Trjuillo RN - 07/14/2022 9:27 AM CST Problem: Fall Risk Goal: Fall risk and fall related injury risk are minimized (interventions related to the fall risk can be found in the flowsheet documentation) Outcome: Progressing Problem: Hemodynamic Status/Cardiac Output Goal: Patient has stable vital signs and fluid balance Outcome: Progressing Problem: Skin Integrity Goal: Skin integrity is maintained or improved Outcome: Progressing Problem: Oral Intake: Inadequate oral [...] Absence of injury while restrained Outcome: Progressing MOTIVE PAINT TECHNICIAN * Akbar Patten MD - 07/13/2022 11:19 AM CST MICU PROGRESS NOTE Name: Mojgan Tabor Admission date: 06/27/2022 Hospital Day: 15 SUBJECTIVE BRIEF HOSPITAL COURSE: Mojgan Tabor is a 62 year old male w/ PMHx significant for CVA with residual L sided defects, history of seizure disorder, dementia, dysphagia with recurrent aspiration (PEG-dependent), Zenker diverticulum, hypertension, BPH, PAD s/p L AKA d/t non-healing foot wound (02/2022), who [facility] with complaints of hypoxia. The patient is a shelter resident at [facility]. Imaging in ED showed likely aspiration pneumonia, for which he was started on antibiotics. ENT was consulted for possible surgical intervention with his Zenker diverticulum. On 07/02 the patient was noted to have R hemithorax opacification with mediastinal shift. Pulmonary Medicine was consulted on 07/03, and due to recurring events of mucus plugging with desaturations, the patient was transferred to the ICU for further evaluation and management. Upon arrival, patient underwent awake bronchoscopy with suction of mucus plugs and had initial radiographic improvement and also in oxygenation. ICU timeline: 07/05/22: Chest xray showed atelectasis of R lung with haziness of LLL which may s/o segmental atelectasis 07/06/22: Intubated and bronchoscopy was performed; Improved chest xray post bronchoscopy with persistently collapsed RLL; Bedside ultrasound- Collapsed RLL with curtain sign on the right hemithorax; small Effusion on the Right; IPV initiated; Continuous EEG started by neurology 07/07/22: opening eyes to commands 07/08/22: following commands; discussed with ENT and tentative plan of zenker's diverticulum removal on 07/15/2021 07/09/22: Opening eyes to commands; Following commands inconsistently 07/10/22: no new events 07/11/22: no new events INTERVAL HISTORY: Opening eyes to commands Following commands inconsistently ROS ROS could not be done as patient is intubated OBJECTIVE Temp: [97.5 ??F (36.4 ??C)-99.5 ??F (37.5 ??C)] 99.5 ??F (37.5 ??C) Pulse: [72-105] 80 Resp: [9-20] 9 BP: (84-170)/(60-90) 117/70 O2 %: [25 %] 25 % I/O last 2 completed shifts: In: 1544 Out: 1750 [Urine:1750] Physical Exam GEN No acute distress; intubated HEENT Does not track with eyes CHEST No chest wall tenderness CARDIO RRR, no M/R/G, +S1/S2 RESP Diminished right lung breath sounds ABD Soft, NT, ND, +BS. EXT L BKA NEURO Non focal SKIN Warm, dry, no rashes/lesions noted DATA Recent Labs Component Name 07/13/22 0413 07/12/22 0450 07/11/22 0040 WBC 8.6 6.6 5.0 RBC 2.80* 2.99* 3.31* HGB 8.9* 9.3* 10.1* HCT 25.9* 28.0* 31.0* MCV 92.5 93.6 93.7 MCHC 34.4 33.2 32.6 PLTCOUNT 81* 152 153 NEUTPCT 63.7 59.3 46.5 NEUTABS 5.48 3.89 2.34 Recent Labs Component Name 07/13/22 0413 07/12/22 0450 07/11/22 0040 07/01/22 1634 06/30/22 1039 06/29/22 0709 06/27/22 2215 06/21/22 1926 POTASSIUM 3.8 4.5 5.3* - 4.0 - 4.4 4.5 CO2 26 25 26 - 24 - 26 29 BUN 36* 42* 46* - 7 - 17 14 CREATININE 1.36* 1.58* 1.81* - 0.58* - 0.78 0.58* GLUCOSE 101 112 101 - 115 - 98 116* CALCIUM 9.4 9.0 9.8 - 9.5 - 10.3* 10.7* ALT - - - - 5 - 6 10 ALKPHOS - - - - 65 - 95 88 AST - - - - 13 - 19 19 EGFR 59* 49* 42* - >90 - >90 >90 - = values in this interval not displayed. Chest xray Endotracheal tube terminates in the mid thoracic trachea. Interval significantly improved aeration of the right lung. Moderate opacity remains in the right mid and lower chest consistent with atelectasis/airspace disease. Small right pleural fluid is present. There is improved aeration of the left lower lung field, with mild residual atelectasis/airspace disease. Pleural fluid may be associated. No pneumothorax is visible. The cardiomediastinal silhouette is normal. The visible bony thorax is intact. ASSESSMENT Epilepsy, unspecified, not intractable, without status epilepticus (CMS/HCC) POA: Yes Muscle weakness (generalized) POA: Yes Hemiplegia and 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- dominant side (CMS/HCC) POA: Yes Acute encephalopathy POA: Yes Sepsis without acute organ dysfunction (CMS/HCC) POA: Yes PAD (peripheral artery disease) (CMS/HCC) POA: Yes History of stroke POA: Yes Protein-calorie malnutrition, unspecified severity (CMS/HCC) POA: Yes Aspiration into airway POA: Yes Leukocytosis, unspecified type POA: Yes Tachycardia POA: Yes Hypoxia POA: Yes Acute respiratory failure with hypoxia (CMS/HCC) POA: Yes Pneumonia of right lower lobe due to infectious organism POA: Yes Atelectasis, right POA: Yes Contrast-induced nephropathy POA: Yes Zenker diverticula POA: Yes Hypernatremia POA: No Hyperkalemia POA: No PLAN Neurological - Depakote 500 mg q6h - Clobazam 20 mg bid - Keppra 500mg bid - Vimpat 200 mg BID - continue ASA - Lipitor 40 mg daily - Aspiration precautions - Seizure precautions - Follow neurology recommendations ?? Cardiovascular - continue ASA - wound care - Keep MAP >65 ?? Pulmonary - Continue mechanical ventilation with ASV 50% PEEP 5 - Wean FiO2 for SpO2>92% - Not a candidate for liberation - completed 7 days of antibiotics - management of zenker's diverticulum as per ENT- surgery likely on 07/15/22 with tracheostomy GI - Protonix 40 mg daily - Miralax 17 gm daily - changed tube feeding from promote to Nepro Renal - measure BMP every 8 hours - Free water flushes 250 cc q6h - BMP daily and monitor renal function - flomax 0.4 mg daily - Oxybutynin 5 mg twice daily - Discontinue Lokelma Endocrine Maintain Euglycemia 140-180 mg/dL ?? Infectious Disease Completed Zosyn for 7 days ?? Hematology/Oncology - Hgb threshold for transfusion: <7 in absence of active bleeding - Platelet count threshold for transfusion: <10 in absence of active bleeding ?? Other No active issues. ?? LDA: Peripheral IV Anterior;Left;Upper Arm (Active) Placement Date/Time: 07/10/22 0200 Orientation: Anterior;Left;Upper Location: Arm Name/Credentials of person who placed: Kandi Olson IV Catheter Size: 20 Gauge Technique: Ultrasound Guidance Number of days: 3 Enteral - Percutaneous Endoscopic Gastrostomy Abdomen;Midline;Upper (Active) Placement Date/Time: 03/25/22 1654 Name/Credentials of person who placed: Jolynn Ann MD Type: Percutaneous Endoscopic Gastrostomy Tube Location: Abdomen;Midline;Upper Size (FR): 24 Procedure Tolerance: Well Number of days: 109 ETT Endotracheal Tube 8 MM (Active) Placement Date/Time: 07/05/222127 Person who placed: Shannon Nino MD Mask Ventilation: easy mask Induction: Rapid Sequence Blade Type: King Blade Size: 4 Support Device: Video Laryngoscope Device: Endotracheal Tube Location: Oral Tube s... Number of days: 7 Other Wound Anterior;Lower;Proximal;Right Arm (Active) Date/Time: 06/29/221999 Orientation: Anterior;Lower;Proximal;Right Location: Arm Number of days: 13 Other Wound Left Ear (Active) Date/Time: 07/03/221839 Orientation: Left Location: Ear Number of days: 9 Other Wound Right Ear (Active) Date/Time: 07/03/221839 Orientation: Right Location: Ear Number of days: 9 External Urinary Device 07/12/22 (Active) Placement Date: 07/12/22 Number of days: 1 DVT Prophylaxis: Heparin subq and SCD GI Prophylaxis: Pepcid Diet: NPO; Tube feeding Activity: Up ad merline Code status: Full Code [facility] Ak[facility] Patten MD (PGY6-Fellow) Pulmonary Disease and Critical Care Medicine Division of Pulmonary, Critical Care, & Sleep Medicine [facility] 07/05/2022 11:19 AM MOTIVE PAINT TECHNICIAN Associated attestation - Artemio Abarca MD - 07/14/2022 6:31 AM AUTOMOTIVE PAINT TECHNICIAN Medical ICU Attending Note I have seen and examined the patient with the resident/fellow. Please see note for further details. In brief, Mojgan Tabor is a 62 year old male admitted to the ICU for recurrent aspiration and acutehypoxic respiratory failure requiring intubation. ASSESSMENT/PLAN: Critical care was necessary to treat or prevent life-threatening deterioration of the following: Epilepsy, unspecified, not intractable, without status epilepticus (CMS/HCC) POA: Yes Muscle weakness (generalized) POA: Yes Hemiplegia and 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- dominant side (CMS/HCC) POA: Yes Acute encephalopathy POA: Yes Sepsis without acute organ dysfunction (CMS/HCC) POA: Yes PAD (peripheral artery disease) (CMS/HCC) POA: Yes History of stroke POA: Yes Protein-calorie malnutrition, unspecified severity (CMS/HCC) POA: Yes Aspiration into airway POA: Yes Leukocytosis, unspecified type POA: Yes Tachycardia POA: Yes Hypoxia POA: Yes Acute respiratory failure with hypoxia (CMS/HCC) POA: Yes Pneumonia of right lower lobe due to infectious organism POA: Yes Atelectasis, right POA: Yes Contrast-induced nephropathy POA: Yes Zenker diverticula POA: Yes Hypernatremia POA: No Hyperkalemia POA: No The plan of care consists of: Neuro: Cont sedation for RASS 0. Remains encephaloapthic Keppra and vimpat Neuro checks Respiratory: Cont full vent support Needs bronchoscopy prn for airway clearance. Cont IPV, vest, and bronchodilators for now Agree with plans for trach, not a candidate for liberation from the vent ASV 100% PEEP 5 HOB>30; Monitor for Respiratory distress Cardiovascular/Hemodynamics: Hemodynamic monitoring. Goal MAP ~65mmHg GI/Nutrition: TF GI prophylaxis . Renal/lytes: Supportive care Heme: Transfuse if Hb <7.0 gm/dl ID: Antibiotics: completed zosyn course Disposition: ICU monitoring I spent 32 minutes in full attendance with this critically-ill patient. Time spent was exclusive ofseparately billed procedures, treating other patients, and teaching time. I have reviewed and agreewith resident/fellow documentation. Pt. is at high risk for [...] discussion is necessary for determining treatment decisions. Critical Care Attending: Artemio Abarca MD * Jhoana Caro MD - 07/13/2022 11:14 AM CST Otolaryngology Progress Note 07/13/2022 SUBJECTIVE: NAEO Intubated, sedated Intermittently follows limited commands VITALS: Temp (30hrs) Max:99.5 ??F (37.5 ??C) Vitals: 07/13/22 0846 07/13/22 0900 07/13/22 1000 07/13/22 1100 BP: 129/76 84/60 117/70 Pulse: 81 81 83 80 Resp: 10 9 9 Temp: SpO2: 98% 99% 97% 98% Weight: Height: Intake/Output Summary (Last 24 hours) at 07/13/2022 1114 Last data filed at 07/13/2022 0819 Gross per 24 hour Intake 2044 ml Output 1750 ml Net 294 ml MEDICATIONS FOR CURRENT ENCOUNTER: SCHEDULED MEDICATIONS: 0.9% NaCl injection 3 mL, Intracatheter, q8h artificial tears ophthalmic ointment, Each Eye, q8h aspirin chew tablet 81 mg, Enteral Tube, QDAY atorvastatin (Lipitor) tablet 40 mg, Enteral Tube, QDAY chlorhexidine (Peridex) 0.12 % oral solution 15 mL, Mouth/Throat, BID cloBAZam (Onfi) tablet 20 mg, Enteral Tube, BID divalproex sprinkle (Depakote Sprinkle) capsule 500 mg, Enteral Tube, Every 6 Hours (03,09,15,) enoxaparin (Lovenox) injection 40 mg, Subcutaneous, QDAY famotidine (Pepcid) tablet 20 mg, Enteral Tube, QDAY lacosamide (Vimpat) tablet 200 mg, Enteral Tube, BID levETIRAcetam (Keppra) tablet 500 mg, Enteral Tube, BID oxybutynin (Ditropan) tablet 5 mg, Enteral Tube, BID polyethylene glycol 3350 (Miralax) packet 17 g, Enteral Tube, QDAY ?? tamsulosin (Flomax) capsule 0.4 mg, Oral, QDAY ?? CONTINUOUS MEDICATIONS: PRN MEDICATIONS: 0.9% NaCl injection 1-10 mL, Intracatheter, PRN acetaminophen (Tylenol) tablet 500 mg, Enteral Tube, q4h PRN artificial tears ophthalmic solution 1 drop, Each Eye, TID PRN bisacodyl (Dulcolax) suppository 10 mg, Rectal, QDAY PRN ?? fentaNYL (PF) (Sublimaze) injection 25 mcg, Intravenous, q1h PRN PHYSICAL EXAM: Gen: Intuabted, sedated, intermittently follows limited commands HEENT: neck soft, ETT in place. Airway landmarks palpable Pulm: Intubated, PEEP 5, FiO2 25 IMAGING CXR reviewed -- improvement in white out of right hemithorax (07/07), no new imaging ASSESSMENT: Mojgan Tabor is a 62 year old male with a PMH significant for R. Occipital stroke (2014), head injury, seizures, Alzheimer's, Right BKA, refractory epilepsy, dysphasia w/PEG tube placement on 03/25/22 who is seen in consultation for Zenker's diverticulum. Recently seen outpatient with plans for elective surgery for his known Zenker's diverticulum, however he is again admitted with aspiration PNA. PLAN: - Plan for OR with ENT on 07/15 -Transoral vs transvervical Zenkers diverticulectomy, open tracheostomy -Consent obtained and in chart -Contine to wean vent as able - Please call ENT with any questions or concerns Jhoana Caro MD Otolaryngology - Head and Neck Surgery 07/13/2022 MOTIVE PAINT TECHNICIAN * Meeta Trujillo RN - 07/13/2022 7:41 AM CST Problem: Fall Risk Goal: Fall risk and fall related injury risk are minimized (interventions related to the fall risk can be found in the flowsheet documentation) Outcome: Progressing Problem: Hemodynamic Status/Cardiac Output Goal: Patient has stable vital signs and fluid balance Outcome: Progressing Problem: Skin Integrity Goal: Skin integrity is maintained or improved Outcome: Progressing Problem: Oral Intake: Inadequate oral [...] Absence of injury while restrained Outcome: Progressing MOTIVE PAINT TECHNICIAN * Akbar Patten MD - 07/12/2022 11:34 AM CST MICU PROGRESS NOTE Name: Mojgan Tabor Admission date: 06/27/2022 Hospital Day: 14 SUBJECTIVE BRIEF HOSPITAL COURSE: Mojgan Tabor is a 62 year old male w/ PMHx significant for CVA with residual L sided defects, history of seizure disorder, dementia, dysphagia with recurrent aspiration (PEG-dependent), Zenker diverticulum, hypertension, BPH, PAD s/p L AKA d/t non-healing foot wound (02/2022), who [facility] with complaints of hypoxia. The patient is a shelter resident at [facility]. Imaging in ED showed likely aspiration pneumonia, for which he was started on antibiotics. ENT was consulted for possible surgical intervention with his Zenker diverticulum. On 07/02 the patient was noted to have R hemithorax opacification with mediastinal shift. Pulmonary Medicine was consulted on 07/03, and due to recurring events of mucus plugging with desaturations, the patient was transferred to the ICU for further evaluation and management. Upon arrival, patient underwent awake bronchoscopy with suction of mucus plugs and had initial radiographic improvement and also in oxygenation. ICU timeline: 07/05/22: Chest xray showed atelectasis of R lung with haziness of LLL which may s/o segmental atelectasis 07/06/22: Intubated and bronchoscopy was performed; Improved chest xray post bronchoscopy with persistently collapsed RLL; Bedside ultrasound- Collapsed RLL with curtain sign on the right hemithorax; small Effusion on the Right; IPV initiated; Continuous EEG started by neurology 07/07/22: opening eyes to commands 07/08/22: following commands; discussed with ENT and tentative plan of zenker's diverticulum removal on 07/15/2021 07/09/22: Opening eyes to commands; Following commands inconsistently 07/10/22: no new events INTERVAL HISTORY: Opening eyes to commands Following commands inconsistently ROS ROS could not be done as patient is intubated OBJECTIVE Temp: [97 ??F (36.1 ??C)-98.6 ??F (37 ??C)] 98.6 ??F (37 ??C) Pulse: [75-105] 86 Resp: [6-19] 11 BP: (94-171)/(65-91) 104/73 O2 %: [25 %] 25 % I/O last 2 completed shifts: In: 2222 Out: - Physical Exam GEN No acute distress; intubated HEENT Does not track with eyes CHEST No chest wall tenderness CARDIO RRR, no M/R/G, +S1/S2 RESP Diminished right lung breath sounds ABD Soft, NT, ND, +BS. EXT L BKA NEURO Non focal SKIN Warm, dry, no rashes/lesions noted DATA Recent Labs Component Name 07/12/22 0450 07/11/22 0040 07/10/22 0005 WBC 6.6 5.0 5.2 RBC 2.99* 3.31* 2.80* HGB 9.3* 10.1* 8.6* HCT 28.0* 31.0* 26.1* MCV 93.6 93.7 93.2 MCHC 33.2 32.6 33.0 PLTCOUNT 152 153 134* NEUTPCT 59.3 46.5 47.6 NEUTABS 3.89 2.34 2.45 Recent Labs Component Name 07/12/22 0450 07/11/22 0040 07/10/22 0005 07/01/22 1634 06/30/22 1039 06/29/22 0709 06/27/22 2215 06/21/22 1926 POTASSIUM 4.5 5.3* 5.1* - 4.0 - 4.4 4.5 CO2 25 26 23 - 24 - 26 29 BUN 42* 46* 44* - 7 - 17 14 CREATININE 1.58* 1.81* 1.96* - 0.58* - 0.78 0.58* GLUCOSE 112 101 101 - 115 - 98 116* CALCIUM 9.0 9.8 9.1 - 9.5 - 10.3* 10.7* ALT - - - - 5 - 6 10 ALKPHOS - - - - 65 95 88 AST - - - - 19 EGFR 49* 42* 38* - >90 - >90 >90 - = values in this interval not displayed. Chest xray Endotracheal tube terminates in the mid thoracic trachea. Interval significantly improved aeration of the right lung. Moderate opacity remains in the right mid and lower chest consistent with atelectasis/airspace disease. Small right pleural fluid is present. There is improved aeration of the left lower lung field, with mild residual atelectasis/airspace disease. Pleural fluid may be associated. No pneumothorax is visible. The cardiomediastinal silhouette is normal. The visible bony thorax is intact. ASSESSMENT Epilepsy, unspecified, not intractable, without status epilepticus (CMS/HCC) POA: Yes Muscle weakness (generalized) POA: Yes Hemiplegia and 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- dominant side ([facility]/HCC) POA: Yes Acute encephalopathy POA: Yes Sepsis without acute organ dysfunction ([facility]/HCC) POA: Yes PAD (peripheral artery disease) ([facility]) POA: Yes History of stroke POA: Yes Protein-calorie malnutrition, unspecified severity ([facility]/HCC) POA: Yes Aspiration into airway POA: Yes Leukocytosis, unspecified type POA: Yes Tachycardia POA: Yes Hypoxia POA: Yes Acute respiratory failure with hypoxia ([facility]) POA: Yes Pneumonia of right lower lobe due to infectious organism POA: Yes Atelectasis, right POA: Yes Contrast-induced nephropathy POA: Yes Zenker diverticula POA: Yes Hypernatremia POA: No Hyperkalemia POA: No PLAN Neurological - Depakote 500 mg q6h - Clobazam 20 mg bid - Keppra 500mg bid - Vimpat 200 mg BID - continue ASA - Lipitor 40 mg daily - Aspiration precautions - Seizure precautions - Follow neurology recommendations ?? Cardiovascular - continue ASA - wound care - Keep MAP >65 ?? Pulmonary - Continue mechanical ventilation with ASV 50% PEEP 5 - Wean FiO2 for SpO2>92% - Not a candidate for liberation - completed 7 days of antibiotics - management of zenker's diverticulum as per ENT- surgery likely on 07/15/22 with possible tracheostomy GI - Protonix 40 mg daily - Miralax 17 gm daily - changed tube feeding from promote to Nepro Renal - measure BMP every 8 hours - Free water flushes 250 cc q6h - BMP daily and monitor renal function - flomax 0.4 mg daily - Oxybutynin 5 mg twice daily - Discontinue Lokelsd Endocrine Maintain Euglycemia 140-180 mg/dL ?? Infectious Disease Completed Zosyn for 7 days ?? Hematology/Oncology - Hgb threshold for transfusion: <7 in absence of active bleeding - Platelet count threshold for transfusion: <10 in absence of active bleeding ?? Other No active issues. ?? LDA: Peripheral IV Anterior;Left;Upper Arm (Active) Placement Date/Time: 07/10/22 0200 Orientation: Anterior;Left;Upper Location: Arm Name/Credentials of person who placed: L Wesley IV Catheter Size: 20 Gauge Technique: Ultrasound Guidance Number of days: 2 Enteral - Percutaneous Endoscopic Gastrostomy Abdomen;Midline;Upper (Active) Placement Date/Time: 03/25/22 165 Name/Credentials of person who placed: Jolynn Ann MD Type: Percutaneous Endoscopic Gastrostomy Tube Location: Abdomen;Midline;Upper Size (FR): 24 Procedure Tolerance: Well Number of days: 108 ETT Endotracheal Tube 8 MM (Active) Placement Date/Time: 07/05/222127 Person who placed: Shannon Nino MD Mask Ventilation: easy mask Induction: Rapid Sequence Blade Type: King Blade Size: 4 Support Device: Video Laryngoscope Device: Endotracheal Tube Location: Oral Tube s... Number of days: 6 Other Wound Anterior;Lower;Proximal;Right Arm (Active) Date/Time: 06/29/221999 Orientation: Anterior;Lower;Proximal;Right Location: Arm Number of days: 12 Other Wound Left Ear (Active) Date/Time: 07/03/221839 Orientation: Left Location: Ear Number of days: 8 Other Wound Right Ear (Active) Date/Time: 07/03/221839 Orientation: Right Location: Ear Number of days: 8 DVT Prophylaxis: Heparin subq and SCD GI Prophylaxis: Pepcid Diet: NPO; Tube feeding Activity: Up ad merline Code status: Full Code Disposition: ASHUTOSH Patten MD (PGY6-Fellow) Pulmonary Disease and Critical Care Medicine Division of Pulmonary, Critical Care, & Sleep Medicine [facility] 07/05/2022 11:34 AM MOTIVE PAINT TECHNICIAN Associated attestation - Artemio Abarca MD - 07/12/2022 2:34 PM AUTOMOTIVE PAINT TECHNICIAN Medical ICU Attending Note I have seen and examined the patient with the resident/fellow. Please see note for further details. In brief, Mojgan Tabor is a 62 year old male admitted to the ICU for recurrent aspiration and acutehypoxic respiratory failure requiring intubation. ASSESSMENT/PLAN: Critical care was necessary to treat or prevent life-threatening deterioration of the following: Epilepsy, unspecified, not intractable, without status epilepticus (CMS/HCC) POA: Yes Muscle weakness (generalized) POA: Yes Hemiplegia and 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- dominant side (CMS/HCC) POA: Yes Acute encephalopathy POA: Yes Sepsis without acute organ dysfunction (CMS/HCC) POA: Yes PAD (peripheral artery disease) (CMS/HCC) POA: Yes History of stroke POA: Yes Protein-calorie malnutrition, unspecified severity (CMS/HCC) POA: Yes Aspiration into airway POA: Yes Leukocytosis, unspecified type POA: Yes Tachycardia POA: Yes Hypoxia POA: Yes Acute respiratory failure with hypoxia (CMS/HCC) POA: Yes Pneumonia of right lower lobe due to infectious organism POA: Yes Atelectasis, right POA: Yes Contrast-induced nephropathy POA: Yes Zenker diverticula POA: Yes Hypernatremia POA: No Hyperkalemia POA: No The plan of care consists of: Neuro: Cont sedation for RASS 0 Keppra and vimpat Neuro checks Respiratory: Cont full vent support Needs bronchoscopy prn for airway clearance. Cont IPV, vest, and bronchodilators for now Agree with plans for trach, not a candidate for liberation from the vent HOB>30; Monitor for Respiratory distress Cardiovascular/Hemodynamics: Hemodynamic monitoring. Goal MAP ~65mmHg GI/Nutrition: TF GI prophylaxis . Renal/lytes: Supportive care Heme: Transfuse if Hb <7.0 gm/dl ID: Antibiotics: completed zosyn course Disposition: ICU monitoring I spent 40 minutes in full attendance with this critically-ill patient. Time spent was exclusive ofseparately billed procedures, treating other patients, and teaching time. I have reviewed and agreewith resident/fellow documentation. Pt. is at high risk for [...] discussion is necessary for determining treatment decisions. Critical Care Attending: Artemio Abarca MD * Meeta Trujillo, RN - 07/12/2022 10:35 AM CST Problem: Fall Risk Goal: Fall risk and fall related injury risk are minimized (interventions related to the fall risk can be found in the flowsheet documentation) Outcome: Progressing Problem: Hemodynamic Status/Cardiac Output Goal: Patient has stable vital signs and fluid balance Outcome: Progressing Problem: Skin Integrity Goal: Skin integrity is maintained or improved Outcome: Progressing Problem: Oral Intake: Inadequate oral [...] Absence of injury while restrained Outcome: Progressing MOTIVE PAINT TECHNICIAN * Melany Tran RD/NOLAN - 07/12/2022 8:39 AM CST Clinical Nutrition Comments: Pt screened for switching of TF formula to Nepro @ 55ml/hr. Noted that formula was changed over weekend 2/2 hyperkalemia. Recommend decreasing TF to below as current rate is overfeeding patient by 1,000kcal. Nepro at 30 ml/hr+ 1 packet of prostat. Provides 1396 kcal, 73 g protein, 126 g carbohydrate, 523 ml free water. +50 ml q 6 hrs free water flush or per MD if on IVF +100 ml q4 hrs free water flush or per MD if not on additional fluids Diet order accuracy Current diet order: NPO Current tube feeding order: Promote @50ml/hr Nutrition recommendation: alter/change nutrition order P.O.Intake for the past 48 hrs:No data recorded Food Allergies: No known food allergies Admission weight: Weight: 47.6 kg (105 lb) (06/27/22 2131) Filed Wts: 07/06/22 0400 07/07/22 0400 07/10/22 0400 07/12/22 0400 Weight: 57.5 kg (126 lb 12.2 oz) 60.5 kg (133 lb 6.1 oz) 62.5 kg (137 lb 12.6 oz) 62 kg (136 lb 11 oz) Height: 185.4 cm (6' 1 ) IBW/lb (Calculated) Male: 184 , BMI: Body mass index is 18.03 kg/m??. BMI Range: Underweight Laboratory values reviewed. Medications noted. Nutrition Recommendations: Adjust TF to above to prevent overfeeding on the ventilator. Will continue to monitor per Clinical Nutrition guidelines. Ascom [id number] MOTIVE PAINT TECHNICIAN * Jhoana Caro MD - 07/12/2022 7:16 AM CST Otolaryngology Progress Note 07/12/2022 SUBJECTIVE: NAEO Intubated, sedated Intermittently follows limited commands VITALS: Temp (30hrs) Max:97.7 ??F (36.5 ??C) Vitals: 07/12/22 0300 07/12/22 0400 07/12/22 0500 07/12/22 0600 BP: 124/74 120/73 130/78 149/87 Pulse: 101 105 98 94 Resp: 17 10 12 Temp: 97.7 ??F (36.5 ??C) SpO2: 99% 98% 99% 97% Weight: 62 kg (136 lb 11 oz) Height: Intake/Output Summary (Last 24 hours) at 07/12/2022 0716 Last data filed at 07/12/2022 0457 Gross per 24 hour Intake 2223 ml Output -- Net 2223 ml MEDICATIONS FOR CURRENT ENCOUNTER: SCHEDULED MEDICATIONS: 0.9% NaCl injection 3 mL, Intracatheter, q8h artificial tears ophthalmic ointment, Each Eye, q8h aspirin chew tablet 81 mg, Enteral Tube, QDAY atorvastatin (Lipitor) tablet 40 mg, Enteral Tube, QDAY chlorhexidine (Peridex) 0.12 % oral solution 15 mL, Mouth/Throat, BID cloBAZam (Onfi) tablet 20 mg, Enteral Tube, BID divalproex sprinkle (Depakote Sprinkle) capsule 500 mg, Enteral Tube, Every 6 Hours (03,09,15,21) famotidine (Pepcid) tablet 20 mg, Enteral Tube, QDAY heparin injection 5,000 Units, Subcutaneous, TID lacosamide (Vimpat) tablet 200 mg, Enteral Tube, BID levETIRAcetam (Keppra) tablet 500 mg, Enteral Tube, BID oxybutynin (Ditropan) tablet 5 mg, Enteral Tube, BID polyethylene glycol 3350 (Miralax) packet 17 g, Enteral Tube, QDAY sodium zirconium cyclosilicate (Lokelma) packet 10 g, Oral, BID ?? tamsulosin (Flomax) capsule 0.4 mg, Oral, QDAY ?? CONTINUOUS MEDICATIONS: PRN MEDICATIONS: 0.9% NaCl injection 1-10 mL, Intracatheter, PRN acetaminophen (Tylenol) tablet 500 mg, Enteral Tube, q4h PRN artificial tears ophthalmic solution 1 drop, Each Eye, TID PRN bisacodyl (Dulcolax) suppository 10 mg, Rectal, QDAY PRN ?? fentaNYL (PF) (Sublimaze) injection 25 mcg, Intravenous, q1h PRN PHYSICAL EXAM: Gen: Intuabted, sedated, intermittently follows limited commands HEENT: neck soft, ETT in place. Airway landmarks palpable Pulm: Intubated, PEEP 5, FiO2 25 IMAGING CXR reviewed -- improvement in white out of right hemithorax (07/07), no new imaging ASSESSMENT: Mojgan Tabor is a 62 year old male with a PMH significant for R. Occipital stroke (2015), head injury, seizures, Alzheimer's, Right BKA, refractory epilepsy, dysphasia w/PEG tube placement on 03/25/22 who is seen in consultation for Zenker's diverticulum. Recently seen outpatient with plans for elective surgery for his known Zenker's diverticulum, however he is again admitted with aspiration PNA. PLAN: - Plan for OR with ENT on 07/15 -Transoral vs transvervical Zenkers diverticulectomy -Contine to wean vent as able - Please call ENT with any questions or concerns Jhoana Caro MD Otolaryngology - Head and Neck Surgery 07/12/2022 MOTIVE PAINT TECHNICIAN * Akbar Patten MD - 07/11/2022 3:05 PM CST Family Notification Documentation Contact made: 07/11/2022 3:06 PM Person(s) contacted: Adriane Method of communication: In-person Summary of discussion Discussed with Adriane and her about pertinent aspects of patient care, timing of surgery andneed for tracheostomy. Akbar Patten MD (PGY6-Fellow) Pulmonary Disease and Critical Care Medicine Division of Pulmonary, Critical Care, & Sleep Medicine [facility] 07/11/2022 3:06 PM MOTIVE PAINT TECHNICIAN * Akbar Patten MD - 07/11/2022 12:08 PM CST MICU PROGRESS NOTE Name: Mojgan Tabor Admission date: 06/27/2022 Hospital Day: 13 SUBJECTIVE BRIEF HOSPITAL COURSE: Mojgan Tabor is a 62 year old male w/ PMHx significant for CVA with residual L sided defects, history of seizure disorder, dementia, dysphagia with recurrent aspiration (PEG-dependent), Zenker diverticulum, hypertension, BPH, PAD s/p L AKA d/t non-healing foot wound (02/2022), who [facility] presented [facility] on 06/28 with complaints of hypoxia. The patient is a shelter resident at [facility]. Imaging in ED showed likely aspiration pneumonia, for which he was started on antibiotics. ENT was consulted for possible surgical intervention with his Zenker diverticulum. On 07/02 the patient was noted to have R hemithorax opacification with mediastinal shift. Pulmonary Medicine was consulted on 07/03, and due to recurring events of mucus plugging with desaturations, the patient was transferred to the ICU for further evaluation and management. Upon arrival, patient underwent awake bronchoscopy with suction of mucus plugs and had initial radiographic improvement and also in oxygenation. ICU timeline: 07/05/22: Chest xray showed atelectasis of R lung with haziness of LLL which may s/o segmental atelectasis 07/06/22: Intubated and bronchoscopy was performed; Improved chest xray post bronchoscopy with persistently collapsed RLL; Bedside ultrasound- Collapsed RLL with curtain sign on the right hemithorax; small Effusion on the Right; IPV initiated; Continuous EEG started by neurology 07/07/22: opening eyes to commands 07/08/22: following commands; discussed with ENT and tentative plan of zenker's diverticulum removal on 07/15/2021 07/09/22: Opening eyes to commands; Following commands inconsistently INTERVAL HISTORY: Opening eyes to commands Following commands inconsistently ROS ROS could not be done as patient is intubated OBJECTIVE Temp: [96.9 ??F (36.1 ??C)-97.7 ??F (36.5 ??C)] 96.9 ??F (36.1 ??C) Pulse: [62-86] 86 Resp: [10-24] 15 BP: (119-163)/(65-98) 131/86 O2 %: [25 %-26 %] 25 % I/O last 2 completed shifts: In: 2305 Out: 2450 [Urine:2450] Physical Exam GEN No acute distress; intubated HEENT Does not track with eyes CHEST No chest wall tenderness CARDIO RRR, no M/R/G, +S1/S2 RESP Diminished right lung breath sounds ABD Soft, NT, ND, +BS. EXT L BKA NEURO Non focal SKIN Warm, dry, no rashes/lesions noted DATA Recent Labs Component Name 07/11/22 0040 07/10/22 0005 07/09/22 0303 WBC 5.0 5.2 4.9 RBC 3.31* 2.80* 2.60* HGB 10.1* 8.6* 8.0* HCT 31.0* 26.1* 24.4* MCV 93.7 93.2 93.8 MCHC 32.6 33.0 32.8 PLTCOUNT 153 134* 116* NEUTPCT 46.5 47.6 52.4 NEUTABS 2.34 2.45 2.55 Recent Labs Component Name 07/11/22 0040 07/10/22 0005 07/09/22 0303 07/01/22 1634 06/30/22 1039 06/29/22 0709 06/27/22 2215 06/21/22 1926 POTASSIUM 5.3* 5.1* 4.7* - 4.0 - 4.4 4.5 CO2 26 23 22 - 24 - 26 29 BUN 46* 44* 39* - 7 - 17 14 CREATININE 1.81* 1.96* 2.18* - 0.58* - 0.78 0.58* GLUCOSE 101 101 109 - 115 - 98 116* CALCIUM 9.8 9.1 9.0 - 9.5 - 10.3* 10.7* ALT - - - - 5 - 6 10 ALKPHOS - - - - 65 - 95 88 AST - - - - 13 - 19 19 EGFR 42* 38* 34* - >90 - >90 >90 - = values in this interval not displayed. Chest xray Endotracheal tube terminates in the mid thoracic trachea. Interval significantly improved aeration of the right lung. Moderate opacity remains in the right mid and lower chest consistent with atelectasis/airspace disease. Small right pleural fluid is present. There is improved aeration of the left lower lung field, with mild residual atelectasis/airspace disease. Pleural fluid may be associated. No pneumothorax is visible. The cardiomediastinal silhouette is normal. The visible bony thorax is intact. ASSESSMENT Epilepsy, unspecified, not intractable, without status epilepticus (CMS/HCC) POA: Yes Muscle weakness (generalized) POA: Yes Hemiplegia and 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- dominant side (CMS/HCC) POA: Yes Acute encephalopathy POA: Yes Sepsis without acute organ dysfunction (CMS/HCC) POA: Yes PAD (peripheral artery disease) (CMS/HCC) POA: Yes History of stroke POA: Yes Protein-calorie malnutrition, unspecified severity (CMS/HCC) POA: Yes Aspiration into airway POA: Yes Leukocytosis, unspecified type POA: Yes Tachycardia POA: Yes Hypoxia POA: Yes Acute respiratory failure with hypoxia (CMS/HCC) POA: Yes Pneumonia of right lower lobe due to infectious organism POA: Yes Atelectasis, right POA: Yes Contrast-induced nephropathy POA: Yes Zenker diverticula POA: Yes Hypernatremia POA: No Hyperkalemia POA: No PLAN Neurological - Depakote 500 mg q6h - Clobazam 20 mg bid - Keppra 500mg bid - Vimpat 200 mg BID - continue ASA - Lipitor 40 mg daily - Aspiration precautions - Seizure precautions - Follow neurology recommendations ?? Cardiovascular - continue ASA - wound care - Keep MAP >65 ?? Pulmonary - Continue mechanical ventilation with ASV 50% PEEP 5 - Wean FiO2 for SpO2>92% - completed 7 days of antibiotics - management of zenker's diverticulum as per ENT- surgery likely on 07/15/22 with possible tracheostomy GI - Protonix 40 mg daily - Miralax 17 gm daily - change tube feeding from promote to Nepro Renal ??- measure BMP every 8 hours - Free water flushes 250 cc q6h - BMP daily and monitor renal function - flomax 0.4 mg daily - Oxybutynin 5 mg twice daily - Lokelma 10 ng twice daily Endocrine Maintain Euglycemia 140-180 mg/dL ?? Infectious Disease Completed Zosyn for 7 days ?? Hematology/Oncology - Hgb threshold for transfusion: <7 in absence of active bleeding - Platelet count threshold for transfusion: <10 in absence of active bleeding ?? Other No active issues. ?? LDA: Peripheral IV Right;Upper Arm (Active) Placement Date/Time: 07/09/22 0403 Orientation: Right;Upper Location: Arm IV Catheter Size: 20 Gauge Technique: Ultrasound Guidance Number of days: 2 Peripheral IV Anterior;Left;Upper Arm (Active) Placement Date/Time: 07/10/22 0200 Orientation: Anterior;Left;Upper Location: Arm Name/Credentials of person who placed: Kandi Olson IV Catheter Size: 20 Gauge Technique: Ultrasound Guidance Number of days: 1 Enteral - Percutaneous Endoscopic Gastrostomy Abdomen;Midline;Upper (Active) Placement Date/Time: 03/25/22 1654 Name/Credentials of person who placed: Jolynn Ann MD Type: Percutaneous Endoscopic Gastrostomy Tube Location: Abdomen;Midline;Upper Size (FR): 24 Procedure Tolerance: Well Number of days: 107 ETT Endotracheal Tube 8 MM (Active) Placement Date/Time: 07/05/228 Person who placed: Shannon Nino MD Mask Ventilation: easy mask Induction: Rapid Sequence Blade Type: King Blade Size: 4 Support Device: Video Laryngoscope Device: Endotracheal Tube Location: Oral Tube s... Number of days: 5 Other Wound Anterior;Lower;Proximal;Right Arm (Active) Date/Time: 06/29/221999 Orientation: Anterior;Lower;Proximal;Right Location: Arm Number of days: 11 Other Wound Left Ear (Active) Date/Time: 07/03/221839 Orientation: Left Location: Ear Number of days: 7 Other Wound Right Ear (Active) Date/Time: 07/03/221839 Orientation: Right Location: Ear Number of days: 7 External Urinary Device 07/10/221899 (Active) Placement Date/Time: 07/10/221899 Number of days: 0 DVT Prophylaxis: Heparin subq and SCD GI Prophylaxis: Pepcid Diet: NPO; Tube feeding Activity: Up ad merline Code status: Full Code Disposition: ASHUTOSH Patten MD (PGY6-Fellow) Pulmonary Disease and Critical Care Medicine Division of Pulmonary, Critical Care, & Sleep Medicine [facility] 07/05/2022 12:36 PM MOTIVE PAINT TECHNICIAN Associated attestation - Tolu Leach MD - 07/11/2022 7:51 PM AUTOMOTIVE PAINT TECHNICIAN I have seen and examined the patient with the resident, and I agree with the findings and plan of care as documented by the resident. Date of Service: 07/11/2022 Critical Care attending: Tolu Leach MD * Akbar Patten MD - 07/10/2022 3:42 PM CST MICU PROGRESS NOTE Name: Mojgan Tabor Admission date: 06/27/2022 Hospital Day: 12 SUBJECTIVE BRIEF HOSPITAL COURSE: Mojgan Tabor is a 62 year old male w/ PMHx significant for CVA with residual L sided defects, history of seizure disorder, dementia, dysphagia with recurrent aspiration (PEG-dependent), Zenker diverticulum, hypertension, BPH, PAD s/p L AKA d/t non-healing foot wound (02/2022), who initially presented [facility] on 06/28 with complaints of hypoxia. The patient is a shelter resident at [facility]. Imaging in ED showed likely aspiration pneumonia, for which he was started on antibiotics. ENT was consulted for possible surgical intervention with his Zenker diverticulum. On 07/02 the patient was noted to have R hemithorax opacification with mediastinal shift. Pulmonary Medicine was consulted on 07/03, and due to recurring events of mucus plugging with desaturations, the patient was transferred to the ICU for further evaluation and management. Upon arrival, patient underwent awake bronchoscopy with suction of mucus plugs and had initial radiographic improvement and also in oxygenation. ICU timeline: 07/05/22: Chest xray showed atelectasis of R lung with haziness of LLL which may s/o segmental atelectasis 07/06/22: Intubated and bronchoscopy was performed; Improved chest xray post bronchoscopy with persistently collapsed RLL; Bedside ultrasound- Collapsed RLL with curtain sign on the right hemithorax; small Effusion on the Right; IPV initiated; Continuous EEG started by neurology 07/07/22: opening eyes to commands 07/08/22: following commands; discussed with ENT and tentative plan of zenker's diverticulum removal on 07/15/2021 INTERVAL HISTORY: Opening eyes to commands Following commands inconsistently ROS ROS could not be done as patient is intubated OBJECTIVE Temp: [97.9 ??F (36.6 ??C)-98.4 ??F (36.9 ??C)] 98.2 ??F (36.8 ??C) Pulse: [74-89] 74 Resp: [10-23] 11 BP: (116-147)/(66-81) 138/72 O2 %: [25 %] 25 % I/O last 2 completed shifts: In: 1255 Out: 1870 [Urine:1870] Physical Exam GEN No acute distress; intubated HEENT Does not track with eyes CHEST No chest wall tenderness CARDIO RRR, no M/R/G, +S1/S2 RESP Diminished right lung breath sounds ABD Soft, NT, ND, +BS. EXT L BKA NEURO Non focal SKIN Warm, dry, no rashes/lesions noted DATA Recent Labs Component Name 07/10/22 0005 07/09/22 0303 07/08/22 0334 WBC 5.2 4.9 6.0 RBC 2.80* 2.60* 2.85* HGB 8.6* 8.0* 8.8* HCT 26.1* 24.4* 26.7* MCV 93.2 93.8 93.7 MCHC 33.0 32.8 33.0 PLTCOUNT 134* 116* 144* NEUTPCT 47.6 52.4 55.5 NEUTABS 2.45 2.55 3.34 Recent Labs Component Name 07/10/22 0005 07/09/22 0303 07/08/22 2046 07/01/22 1634 06/30/22 1039 06/29/22 0709 06/27/22 2215 06/21/22 1926 POTASSIUM 5.1* 4.7* 4.4 - 4.0 - 4.4 4.5 CO2 23 22 - 29 BUN 44* 39* 40* - 7 - 17 14 CREATININE 1.96* 2.18* 2.30* - 0.58* - 0.78 0.58* GLUCOSE 101 109 105 - 115 - 98 116* CALCIUM 9.1 9.0 8.8 - 9.5 - 10.3* 10.7* ALT - - - - 5 - 6 10 ALKPHOS - - - - 65 - 95 88 AST - - - - 13 - 19 19 EGFR 38* 34* 32* - >90 - >90 >90 - = values in this interval not displayed. Chest xray Endotracheal tube terminates in the mid thoracic trachea. Interval significantly improved aeration of the right lung. Moderate opacity remains in the right mid and lower chest consistent with atelectasis/airspace disease. Small right pleural fluid is present. There is improved aeration of the left lower lung field, with mild residual atelectasis/airspace disease. Pleural fluid may be associated. No pneumothorax is visible. The cardiomediastinal silhouette is normal. The visible bony thorax is intact. ASSESSMENT Epilepsy, unspecified, not intractable, without status epilepticus (CMS/HCC) POA: Yes Muscle weakness (generalized) POA: Yes Hemiplegia and 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- dominant side (CMS/HCC) POA: Yes Acute encephalopathy POA: Yes Sepsis without acute organ dysfunction (CMS/HCC) POA: Yes PAD (peripheral artery disease) (CMS/HCC) POA: Yes History of stroke POA: Yes Protein-calorie malnutrition, unspecified severity (CMS/HCC) POA: Yes Aspiration into airway POA: Yes Leukocytosis, unspecified type POA: Yes Tachycardia POA: Yes Hypoxia POA: Yes Acute respiratory failure with hypoxia (CMS/HCC) POA: Yes Pneumonia of right lower lobe due to infectious organism POA: Yes Atelectasis, right POA: Yes Contrast-induced nephropathy POA: Yes Zenker diverticula POA: Yes Hypernatremia POA: No PLAN Neurological - Depakote 500 mg q6h - Clobazam 20 mg bid - Keppra 500mg bid - Vimpat 200 mg BID - continue ASA - Lipitor 40 mg daily - Aspiration precautions - Seizure precautions - Follow neurology recommendations ?? Cardiovascular - continue ASA - wound care - Keep MAP >65 ?? Pulmonary - Continue mechanical ventilation with ASV 50% PEEP 5 - Wean FiO2 for SpO2>92% - Discontinue IPV - completed 7 days of antibiotics - management of zenker's diverticulum as per ENT- surgery likely on 07/15/22 with possible tracheostomy GI - Protonix 40 mg daily - Miralax 17 gm daily - continue tube feeding Renal ??- measure BMP every 8 hours - Free water flushes 250 cc q6h - BMP daily and monitor renal function - flomax 0.4 mg daily - Oxybutynin 5 mg twice daily Endocrine Maintain Euglycemia 140-180 mg/dL ?? Infectious Disease Completed Zosyn for 7 days ?? Hematology/Oncology - Hgb threshold for transfusion: <7 in absence of active bleeding - Platelet count threshold for transfusion: <10 in absence of active bleeding ?? Other No active issues. ?? LDA: Peripheral IV Right;Upper Arm (Active) Placement Date/Time: 07/09/22 0403 Orientation: Right;Upper Location: Arm IV Catheter Size: 20 Gauge Technique: Ultrasound Guidance Number of days: 1 Peripheral IV Anterior;Left;Upper Arm (Active) Placement Date/Time: 07/10/22 0200 Orientation: Anterior;Left;Upper Location: Arm Name/Credentials of person who placed: Kandi GoodosnWesley IV Catheter Size: 20 Gauge Technique: Ultrasound Guidance Number of days: 0 Enteral - Percutaneous Endoscopic Gastrostomy Abdomen;Midline;Upper (Active) Placement Date/Time: 03/25/22 1654 Name/Credentials of person who placed: Jolynn Ann MD Type: Percutaneous Endoscopic Gastrostomy Tube Location: Abdomen;Midline;Upper Size (FR): 24 Procedure Tolerance: Well Number of days: 106 ETT Endotracheal Tube 8 MM (Active) Placement Date/Time: 07/05/222127 Person who placed: Shannon Nino MD Mask Ventilation: easy mask Induction: Rapid Sequence Blade Type: King Blade Size: 4 Support Device: Video Laryngoscope Device: Endotracheal Tube Location: Oral Tube s... Number of days: 4 Other Wound Anterior;Lower;Proximal;Right Arm (Active) Date/Time: 06/29/221999 Orientation: Anterior;Lower;Proximal;Right Location: Arm Number of days: 10 Other Wound Left Ear (Active) Date/Time: 07/03/221839 Orientation: Left Location: Ear Number of days: 6 Other Wound Right Ear (Active) Date/Time: 07/03/221839 Orientation: Right Location: Ear Number of days: 6 DVT Prophylaxis: Heparin subq and SCD GI Prophylaxis: Pepcid Diet: NPO; Tube feeding Activity: Bedrest Code status: Full Code Disposition: ASHUTOSH Patten MD (PGY6-Fellow) Pulmonary Disease and Critical Care Medicine Division of Pulmonary, Critical Care, & Sleep Medicine [facility] 07/05/2022 3:42 PM MOTIVE PAINT TECHNICIAN Associated attestation - Tolu Leach MD - 07/11/2022 7:49 PM AUTOMOTIVE PAINT TECHNICIAN I have seen and examined the patient with the resident, and I agree with the findings and plan of care as documented by the resident. Date of Service: 07/10/2022 Critical Care attending: Tolu Leach MD * Jazmyne Rodriguez RN - 07/10/2022 3:09 PM CST Problem: Fall Risk Goal: Fall risk and fall related injury risk are minimized (interventions related to the fall risk can be found in the flowsheet documentation) Outcome: Progressing Problem: Hemodynamic Status/Cardiac Output Goal: Patient has stable vital signs and fluid balance Outcome: Progressing Problem: Pain/Discomfort Goal: Patient exhibits reduced pain/discomfort as evidenced by pain scores Outcome: Progressing Problem: Safety related to restraint use Goal: Absence of injury while restrained Outcome: Progressing MOTIVE PAINT TECHNICIAN * Iggy Rodriguez - 07/09/2022 2:41 PM CST Tuesday Summary Note Discharge Level of Care: SNF vs LTACH Discharge Destination: [facility] vs LTACH Insurance Auth: n/a Anticipated Mode of Transportation: ambulance Contacts (Name, relationship, phone #): sister Forrest, Anticipated DC Date: TBD Pending Needs: medical stability Comments: Pt is a long-term care resident of [facility] but remains intubated, at this time. CLARITA Turcios Phone [phone] 07/09/2022 MOTIVE PAINT TECHNICIAN * Melany Tran RD/NOLAN - 07/09/2022 12:57 PM CST Nutrition Re-Assessment Brief Synopsis: Patient is at Nutrition Risk; Specific criteria can be found in assessment below Nutrition Plan: NPO Promote at goal of 55 ml/hr. Provides 1320 kcal, 83 g protein, 172 g carbohydrate, 1107 ml free water. +50 ml q 6 hrs free water flush or per MD if on IVF +100 ml q4 hrs free water flush or per MD if not on additional fluids ?? Recommendations to Physician: Increased TF from 50m/hr to 55ml/hr Comments: Pt scheduled for reassessment. Pt remains intubated and receiving Promote @ 50ml/hr--ycgq53p/hr, will increase to goal. x1 stool today. K 4.7. Will continue to follow. Assessment: Med/Surg History and Clinical Diagnoses: 62 year old male with PMH of seizures, stroke w/residual Lsided deficits, dementia, Zenker diverticulum, dysphagia, HTN, BPH, PAD s/p L AKA [facility] Diet order accuracy Current diet order: NPO Current tube feeding order: Promote @50ml/hr Nutrition recommendation: alter/change nutrition order P.O.Intake for the past 48 hrs:No data recorded Food Allergies: No known food allergies GI Concerns: None Chewing/Swallowing: Other (Comment) (intubated) Pain affecting intake: No Admission weight: Weight: 47.6 kg (105 lb) (06/27/222130) Recent Weights/Methods 06/21/2022 1910 06/25/2022 1117 06/27/20221 07/01/2022 0400 07/04/2022 0000 07/05/2022 0000 07/06/2022 0400 07/07/2022 0400 Weight: 68 kg (150 lb) 47.6 kg (105 lb) 47.6 kg (105 lb) 59 kg (130 lb) 60 kg (132 lb 4.4 oz) 59 kg(130 lb 1.1 oz) 57.5 kg (126 lb 12.2 oz) 60.5 kg (133 lb 6.1 oz) Weight Method (Utilize Scales): Estimated -- Stated -- Bedscale Bedscale Bedscale Bedscale BMI: Body mass index is 17.6 kg/m??. BMI Range: Underweight Wt Comments: reviewed, weight trending up Height: 185.4 cm (6' 1 ) IBW/lb (Calculated) Male: 184 , Laboratory values reviewed. Recent Labs Component Name 07/09/22 0303 07/08/22 2046 07/08/22 1222 07/01/22 1634 06/30/22 1039 06/29/22 0709 06/27/22 2215 06/21/22 1926 BUN 39* 40* 40* - 7 - 17 14 CREATININE 2.18* 2.30* 2.45* - 0.58* - 0.78 0.58* NA 143 145 145 - 140 - 142 142 POTASSIUM 4.7* 4.4 4.6* - 4.0 - 4.4 4.5 CL 114* 115* 113* - 107 - 101 106 CO2 23 - 24 - 29 GLUCOSE 109 105 109 - 115 - 98 116* CALCIUM 9.0 8.8 9.2 - 9.5 - 10.3* 10.7* PROT - - - - 6.2 - 8.3 8.3 ALB - - - - 2.2* - 3.4 3.2* TBILI - - - - 0.3 - 0.3 0.3 ALKPHOS - - - - 65 - 95 88 ALT - - - - 5 - 6 10 AST - - - - 13 - 19 19 ANIONGAP 12 11 15 - 13 - 19* 12 BCR 18 17 16 - 12 - 22 24* OSMOLALITY 306* 310* 310* - 289 - 296 295 AGRATIO - - - - 0.6* - 0.7* 0.6* EGFR 34* 32* 29* - >90 - >90 >90 - = values in this interval not displayed. Medications noted. Current Facility-Administered Medications Medication ??? 0.9% NaCl injection 3 mL And ??? 0.9% NaCl injection 1-10 mL ??? acetaminophen (Tylenol) tablet 500 mg ??? artificial tears ophthalmic ointment ??? artificial tears ophthalmic solution 1 drop ??? aspirin chew tablet 81 mg ??? atorvastatin (Lipitor) tablet 40 mg ??? bisacodyl (Dulcolax) suppository 10 mg ??? chlorhexidine (Peridex) 0.12 % oral solution 15 mL ??? cloBAZam (Onfi) tablet 20 mg ??? divalproex sprinkle (Depakote Sprinkle) capsule 500 mg ??? [START ON 07/10/2022] famotidine (Pepcid) tablet 20 mg ??? fentaNYL (PF) (Sublimaze) injection 25 mcg ??? fluticasone propionate (Flonase) nasal spray 1 spray ??? heparin injection 5,000 Units ??? lacosamide (Vimpat) tablet 200 mg ??? levETIRAcetam (Keppra) tablet 500 mg ??? oxybutynin (Ditropan) tablet 5 mg ??? polyethylene glycol 3350 (Miralax) packet 17 g ??? tamsulosin (Flomax) capsule 0.4 mg Skin/Wound: Exceptions (right arm) Estimated Energy Needs: KCAL: 7775-5919 (20-25kcal/kg of ABW) Protein (g): 70-87 (1.2-1.5gm/kg of ABW) Fluid (ml): 1 ml/kcal Needs based on: Kcal/kg- (Comment) (58kg of ABW) Recommended Access Route: TF Education needed: None Education Provided: Not appropriate Nutrition Care Process (1) Nutrition Diagnostic Statement: Inadequate oral intake related to:: decreased ability to consume or tolerate food and/or fluids due to illness as evidenced by:: need for parenteral or enteral intake to supplement oral intake Nutrition Diagnostic Statement Progress: Nutrition problem continues Nutrition Intervention: Enteral nutrition: Monitoring: GI, TF, WT, labs, medications Evaluation: Nutrition Goal: Enteral/Parenteral Nutrition prescription will be consistent with estimated nutrient needs Nutrition Goal Timeframe: Ongoing Nutrition Goal Progress: Continue with current goal Ascom [id number] MOTIVE PAINT TECHNICIAN * Akbar Patten MD - 07/09/2022 11:53 AM CST MICU PROGRESS NOTE Name: Mojgan Tabor Admission date: 06/27/2022 Hospital Day: 11 SUBJECTIVE BRIEF HOSPITAL COURSE: Mojgan Tabor is a 62 year old male w/ PMHx significant for CVA with residual L sided defects, history of seizure disorder, dementia, dysphagia with recurrent aspiration (PEG-dependent), Zenker diverticulum, hypertension, BPH, PAD s/p L AKA d/t non-healing foot wound (02/2022), who [facility] with complaints of hypoxia. The patient is a shelter resident at [facility]. Imaging in ED showed likely aspiration pneumonia, for which he was started on antibiotics. ENT was consulted for possible surgical intervention with his Zenker diverticulum. On 07/02 the patient was noted to have R hemithorax opacification with mediastinal shift. Pulmonary Medicine was consulted on 07/03, and due to recurring events of mucus plugging with desaturations, the patient was transferred to the ICU for further evaluation and management. Upon arrival, patient underwent awake bronchoscopy with suction of mucus plugs and had initial radiographic improvement and also in oxygenation. ICU timeline: 07/05/22: Chest xray showed atelectasis of R lung with haziness of LLL which may s/o segmental atelectasis 07/06/22: Intubated and bronchoscopy was performed; Improved chest xray post bronchoscopy with persistently collapsed RLL; Bedside ultrasound- Collapsed RLL with curtain sign on the right hemithorax; small Effusion on the Right; IPV initiated; Continuous EEG started by neurology 07/07/22: opening eyes to commands INTERVAL HISTORY: Opening eyes to commands Following commands inconsistently ROS ROS could not be done as patient is intubated OBJECTIVE Temp: [97 ??F (36.1 ??C)-98 ??F (36.7 ??C)] 97.7 ??F (36.5 ??C) Pulse: [68-90] 84 Resp: [12-25] 13 BP: (104-164)/(64-89) 143/77 O2 %: [25 %-40 %] 25 % I/O last 2 completed shifts: In: - Out: 1310 [Urine:1310] Physical Exam GEN No acute distress; intubated HEENT Does not track with eyes CHEST No chest wall tenderness CARDIO RRR, no M/R/G, +S1/S2 RESP Diminished right lung breath sounds ABD Soft, NT, ND, +BS. EXT L BKA NEURO Non focal SKIN Warm, dry, no rashes/lesions noted DATA Recent Labs Component Name 07/09/22 0303 07/08/22 0334 07/07/22 0345 WBC 4.9 6.0 5.0 RBC 2.60* 2.85* 3.12* HGB 8.0* 8.8* 9.5* HCT 24.4* 26.7* 28.9* MCV 93.8 93.7 92.6 MCHC 32.8 33.0 32.9 PLTCOUNT 116* 144* 162 NEUTPCT 52.4 55.5 52.9 NEUTABS 2.55 3.34 2.63 Recent Labs Component Name 07/09/22 0303 07/08/22 2046 07/08/22 1222 07/01/22 1634 06/30/22 1039 06/29/22 0709 06/27/22 2215 06/21/22 1926 POTASSIUM 4.7* 4.4 4.6* - 4.0 - 4.4 4.5 CO2 - - 29 BUN 39* 40* 40* - 7 - 17 14 CREATININE 2.18* 2.30* 2.45* - 0.58* - 0.78 0.58* GLUCOSE 109 105 109 - 115 - 98 116* CALCIUM 9.0 8.8 9.2 - 9.5 - 10.3* 10.7* ALT - - - - 5 - 6 10 ALKPHOS - - - - 65 - 95 88 AST - - - - 13 - 19 19 EGFR 34* 32* 29* - >90 - >90 >90 - = values in this interval not displayed. Chest xray Endotracheal tube terminates in the mid thoracic trachea. Interval significantly improved aeration of the right lung. Moderate opacity remains in the right mid and lower chest consistent with atelectasis/airspace disease. Small right pleural fluid is present. There is improved aeration of the left lower lung field, with mild residual atelectasis/airspace disease. Pleural fluid may be associated. No pneumothorax is visible. The cardiomediastinal silhouette is normal. The visible bony thorax is intact. ASSESSMENT Epilepsy, unspecified, not intractable, without status epilepticus (CMS/HCC) POA: Yes Muscle weakness (generalized) POA: Yes Hemiplegia and 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- dominant side (CMS/HCC) POA: Yes Acute encephalopathy POA: Yes Sepsis without acute organ dysfunction (CMS/HCC) POA: Yes PAD (peripheral artery disease) (CMS/HCC) POA: Yes History of stroke POA: Yes Protein-calorie malnutrition, unspecified severity (CMS/HCC) POA: Yes Aspiration into airway POA: Yes Leukocytosis, unspecified type POA: Yes Tachycardia POA: Yes Hypoxia POA: Yes Acute respiratory failure with hypoxia (CMS/HCC) POA: Yes Pneumonia of right lower lobe due to infectious organism POA: Yes Atelectasis, right POA: Yes Contrast-induced nephropathy POA: Yes Zenker diverticula POA: Yes Hypernatremia POA: No PLAN Neurological - Depakote 500 mg q6h - Clobazam 20 mg bid - Keppra 500mg bid - Vimpat 200 mg BID - continue ASA - Lipitor 40 mg daily - Thiamine 100 mg daily - Folic acid 1 mg daily - Aspiration precautions - Seizure precautions - Follow neurology recommendations ?? Cardiovascular - continue ASA - wound care - Keep MAP >65 ?? Pulmonary - Continue mechanical ventilation with ASV 50% PEEP 5 - Wean FiO2 for SpO2>92% - Discontinue IPV - completed 7 days of antibiotics - management of zenker's diverticulum as per ENT?? GI - Protonix 40 mg daily - Miralax 17 gm daily - continue tube feeding - consult nutrition Renal ??- measure BMP every 8 hours - Free water flushes 250 cc q6h - BMP daily and monitor renal function - flomax 0.4 mg daily Remove jensen catheter Endocrine Maintain Euglycemia 140-180 mg/dL ?? Infectious Disease Completed Zosyn for 7 days ?? Hematology/Oncology - Hgb threshold for transfusion: <7 in absence of active bleeding - Platelet count threshold for transfusion: <10 in absence of active bleeding ?? Other No active issues. ?? LDA: Peripheral IV Left Antecubital (Active) Placement Date/Time: 06/27/222139 Existing LDA : EMS Orientation: Left Location: Antecubital IV Catheter Size: 18 Gauge Number of days: 11 Peripheral IV Right;Upper Arm (Active) Placement Date/Time: 07/09/22 040 Orientation: Right;Upper Location: Arm IV Catheter Size: 20 Gauge Technique: Ultrasound Guidance Number of days: 0 Enteral - Percutaneous Endoscopic Gastrostomy Abdomen;Midline;Upper (Active) Placement Date/Time: 03/25/221653 Name/Credentials of person who placed: Jolynn Ann MD Type: Percutaneous Endoscopic Gastrostomy Tube Location: Abdomen;Midline;Upper Size (FR): 24 Procedure Tolerance: Well Number of days: 105 ETT Endotracheal Tube 8 MM (Active) Placement Date/Time: 07/05/222127 Person who placed: Shannon Nino MD Mask Ventilation: easy mask Induction: Rapid Sequence Blade Type: King Blade Size: 4 Support Device: Video Laryngoscope Device: Endotracheal Tube Location: Oral Tube s... Number of days: 3 Other Wound Anterior;Lower;Proximal;Right Arm (Active) Date/Time: 06/29/221999 Orientation: Anterior;Lower;Proximal;Right Location: Arm Number of days: 9 Other Wound Left Ear (Active) Date/Time: 07/03/221839 Orientation: Left Location: Ear Number of days: 5 Other Wound Right Ear (Active) Date/Time: 07/03/221839 Orientation: Right Location: Ear Number of days: 5 Indwelling Transurethral Urinary Catheter (Active) Placement Date/Time: 07/07/22 1613 Name/Credentials of person who placed: ALFRED Acosta Inserted by ?: No Size (FR): 16 Urinary Catheter Type: Coude Catheter Balloon Size: 10 mL Closed System Maintained This Shift: Yes, Seal Intact Number of ... Number of days: 1 DVT Prophylaxis: Heparin subq and SCD GI Prophylaxis: protonix Diet: NPO; Tube feeding Activity: Bedrest Code status: Full Code Disposition: MICU Akbar Patten MD (PGY6-Fellow) Pulmonary Disease and Critical Care Medicine Division of Pulmonary, Critical Care, & Sleep Medicine [facility] 07/05/2022 12:04 PM MOTIVE PAINT TECHNICIAN Associated attestation - Tolu Leach MD - 07/09/2022 3:58 PM AUTOMOTIVE PAINT TECHNICIAN MICU Attending Note: I have seen and examined the patient with the house staff on MICU team. I have verified all detailsof the house staff's note and agree with the documentation except for the changes I have documentedbelow: Interval History: MS waxing and waning. Not ready for vent liberation. Exam: Vitals: 07/09/22 0832 07/09/22 0900 07/09/22 1139 07/09/22 1400 BP: 143/77 Pulse: 68 72 84 Resp: 13 Temp: 97.7 ??F (36.5 ??C) 98.1 ??F (36.7 ??C) SpO2: 100% 100% 98% Weight: Height: Neuro: spontaneous eye opening no command following. CVS: S1S2+, RRR RS: BL mechanical breath sounds Abd: soft NT ND BS+ Ext: L BKA Labs: CBC: Recent Labs Component Name 07/09/2230207/08/22 0334 07/07/22 0345 WBC 4.9 6.0 5.0 HGB 8.0* 8.8* 9.5* HCT 24.4* 26.7* 28.9* BMP: Recent Labs Component Name 07/09/22 0303 07/08/22 2046 07/08/22 1222 07/08/22 0334 07/07/22 1205 07/07/22 0345 NA 143 145 145 146* - 144 CL 114* 115* 113* 114* - 114* CO2 22 23 22 20* - 22 BUN 39* 40* 40* 39* - 39* CREATININE 2.18* 2.30* 2.45* 2.64* - 2.85* CALCIUM 9.0 8.8 9.2 8.8 - 8.6 PHOS 3.1 - - 2.4* - 2.8 - = values in this interval not displayed. Hepatic: Recent Labs Component Name 06/30/22 1039 06/27/22 22106/21/22 1926 ALT 5 6 10 AST 13 19 19 TBILI 0.3 0.3 0.3 PROT 6.2 8.3 8.3 ALB 2.2* 3.4 3.2* ALKPHOS 65 95 88 Coagulation: Recent Labs Component Name 06/27/22221405/11/22 1309 03/11/22 1059 PT 12.8 13.5 15.4* INR 1.0 1.0 1.2 Cardiac Markers: Recent Labs Component Name 06/28/22 0141 06/27/22221405/30/22 1750 TROPONINI <0.010 <0.010 <0.010 ABGs: No results for input(s): PHART, PO2ART, VCS7ITY, BEART in the last 36245 hours. 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 (CMS/HCC) POA: Yes Acute encephalopathy POA: Yes Sepsis without acute organ dysfunction (CMS/HCC) POA: Yes PAD (peripheral artery disease) (CMS/HCC) POA: Yes History of stroke POA: Yes Protein-calorie malnutrition, unspecified severity (CMS/HCC) POA: Yes Aspiration into airway POA: Yes Leukocytosis, unspecified type POA: Yes Tachycardia POA: Yes Hypoxia POA: Yes Acute respiratory failure with hypoxia (CMS/HCC) POA: Yes Pneumonia of right lower lobe due to infectious organism POA: Yes Atelectasis, right POA: Yes Contrast-induced nephropathy POA: Yes Zenker diverticula POA: Yes Hypernatremia POA: No Plan: Cont current AED regimen.Cont ASA and statin. Did not tolerate PSV. Cont on ASV. Plan for surgical intervention on zenkers diverticulum and may need trach. Cont tube feeds SAMANTHA most likely related to contrast injury. UOP decent. Creat plateaued. Cont flomax and add oxybutynin Pt. is critically ill with vital organ impairment or failure Time involved in the performance of separately billable procedures, teaching, reviewing education material was not counted towards critical care time. Patient is unable or incompetent to participate in giving a history and/or making decisions and discussion is necessary for determining treatment decisions. Overall critical care time provided: 30 Mins. Date of Service: 07/08/2022 Critical Care Attending: Dr. Tolu Leach MD, MPH * Akbar Patten MD - 07/08/2022 3:49 PM CST MICU PROGRESS NOTE Name: Mojgan Tabor Admission date: 06/27/2022 Hospital Day: 10 SUBJECTIVE BRIEF HOSPITAL COURSE: Mojgan Tabor is a 62 year old male w/ PMHx significant for CVA with residual L sided defects, history of seizure disorder, dementia, dysphagia with recurrent aspiration (PEG-dependent), Zenker diverticulum, hypertension, BPH, PAD s/p L AKA d/t non-healing foot wound (02/2022), who initially presented to [facility] ED on 06/28 with complaints of hypoxia. The patient is a shelter resident at [facility]. Imaging in ED showed likely aspiration pneumonia, for which he was started on antibiotics. ENT was consulted for possible surgical intervention with his Zenker diverticulum. On 07/02 the patient was noted to have R hemithorax opacification with mediastinal shift. Pulmonary Medicine was consulted on 07/03, and due to recurring events of mucus plugging with desaturations, the patient was transferred to the ICU for further evaluation and management. Upon arrival, patient underwent awake bronchoscopy with suction of mucus plugs and had initial radiographic improvement and also in oxygenation. ICU timeline: 07/05/22: Chest xray showed atelectasis of R lung with haziness of LLL which may s/o segmental atelectasis 07/06/22: Intubated and bronchoscopy was performed; Improved chest xray post bronchoscopy with persistently collapsed RLL; Bedside ultrasound- Collapsed RLL with curtain sign on the right hemithorax; small Effusion on the Right; IPV initiated; Continuous EEG started by neurology 07/07/22: opening eyes to commands INTERVAL HISTORY: Opening eyes to commands EEG reported no seizure activity ROS ROS could not be done as patient is intubated OBJECTIVE Temp: [98 ??F (36.7 ??C)-98.8 ??F (37.1 ??C)] 98 ??F (36.7 ??C) Pulse: [80-96] 80 Resp: [0-20] 16 BP: (94-140)/(66-91) 122/87 O2 %: [30 %-40 %] 40 % I/O last 2 completed shifts: In: 1508 [Other:30] Out: 1575 [Urine:1375; Other:200] Physical Exam GEN No acute distress; intubated HEENT Does not track with eyes CHEST No chest wall tenderness CARDIO RRR, no M/R/G, +S1/S2 RESP Diminished right lung breath sounds ABD Soft, NT, ND, +BS. EXT L BKA NEURO Non focal SKIN Warm, dry, no rashes/lesions noted DATA Recent Labs Component Name 07/08/22 0334 07/07/22 0345 07/06/22 0349 WBC 6.0 5.0 6.5 RBC 2.85* 3.12* 3.16* HGB 8.8* 9.5* 9.7* HCT 26.7* 28.9* 29.3* MCV 93.7 92.6 92.7 MCHC 33.0 32.9 33.1 PLTCOUNT 144* 162 157 NEUTPCT 55.5 52.9 53.9 NEUTABS 3.34 2.63 3.51 Recent Labs Component Name 07/08/22 1222 07/08/22 0334 07/07/22 1957 07/01/22 1634 06/30/22 1039 06/29/22 0709 06/27/22 2215 06/21/22 1926 POTASSIUM 4.6* 4.4 4.4 - 4.0 - 4.4 4.5 CO2 22 20* 20* - 24 - 26 29 BUN 40* 39* 39* - 7 - 17 14 CREATININE 2.45* 2.64* 2.75* - 0.58* - 0.78 0.58* GLUCOSE 109 99 106 - 115 - 98 116* CALCIUM 9.2 8.8 8.9 - 9.5 - 10.3* 10.7* ALT - - - - 5 - 6 10 ALKPHOS - - - - 65 - 95 88 AST - - - - 13 - 19 19 EGFR 29* 27* 25* - >90 - >90 >90 - = values in this interval not displayed. Chest xray Endotracheal tube terminates in the mid thoracic trachea. Interval significantly improved aeration of the right lung. Moderate opacity remains in the right mid and lower chest consistent with atelectasis/airspace disease. Small right pleural fluid is present. There is improved aeration of the left lower lung field, with mild residual atelectasis/airspace disease. Pleural fluid may be associated. No pneumothorax is visible. The cardiomediastinal silhouette is normal. The visible bony thorax is intact. ASSESSMENT Epilepsy, unspecified, not intractable, without status epilepticus (CMS/HCC) POA: Yes Muscle weakness (generalized) POA: Yes Hemiplegia and 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- dominant side (CMS/HCC) POA: Yes Acute encephalopathy POA: Yes Sepsis without acute organ dysfunction (CMS/HCC) POA: Yes PAD (peripheral artery disease) (CMS/HCC) POA: Yes History of stroke POA: Yes Protein-calorie malnutrition, unspecified severity (CMS/HCC) POA: Yes Aspiration into airway POA: Yes Leukocytosis, unspecified type POA: Yes Tachycardia POA: Yes Hypoxia POA: Yes Acute respiratory failure with hypoxia (CMS/HCC) POA: Yes Pneumonia of right lower lobe due to infectious organism POA: Yes Atelectasis, right POA: Yes Contrast-induced nephropathy POA: Yes Zenker diverticula POA: Yes Hypernatremia POA: No PLAN Neurological - Depakote 500 mg q6h - Clobazam 20 mg bid - Keppra 500mg bid - Vimpat 200 mg BID - continue ASA - Lipitor 40 mg daily - Thiamine 100 mg daily - Folic acid 1 mg daily - Aspiration precautions - Seizure precautions - Follow neurology recommendations ?? Cardiovascular - continue ASA - wound care - Keep MAP >65 ?? Pulmonary - Continue mechanical ventilation with ASV 50% PEEP 5 - Wean FiO2 for SpO2>92% - Discontinue IPV - completed 7 days of antibiotics - management of zenker's diverticulum as per ENT?? GI - Protonix 40 mg daily - Miralax 17 gm daily - continue tube feeding - consult nutrition Renal ??- measure BMP every 8 hours - Free water flushes 250 cc q6h - BMP every 8 hours and monitor renal function - flomax 0.4 mg daily Endocrine Maintain Euglycemia 140-180 mg/dL ?? Infectious Disease Completed Zosyn for 7 days ?? Hematology/Oncology - Hgb threshold for transfusion: <7 in absence of active bleeding - Platelet count threshold for transfusion: <10 in absence of active bleeding ?? Other No active issues. ?? LDA: Peripheral IV Left Antecubital (Active) Placement Date/Time: 06/27/222139 Existing LDA : EMS Orientation: Left Location: Antecubital IV Catheter Size: 18 Gauge Number of days: 10 Peripheral IV Anterior;Left;Upper Arm (Active) Placement Date/Time: 06/29/222144 Orientation: Anterior;Left;Upper Location: Arm Name/Credentials of person who placed: Rhianna SIMON IV Catheter Size: 20 Gauge Technique: Ultrasound Guidance Number of start attempts: 1 Local Anesthetic Used?: No... Number of days: 8 Enteral - Percutaneous Endoscopic Gastrostomy Abdomen;Midline;Upper (Active) Placement Date/Time: 03/25/221653 Name/Credentials of person who placed: Jolynn Ann MD Type: Percutaneous Endoscopic Gastrostomy Tube Location: Abdomen;Midline;Upper Size (FR): 24 Procedure Tolerance: Well Number of days: 104 ETT Endotracheal Tube 8 MM (Active) Placement Date/Time: 07/05/222127 Person who placed: Shannon Nino MD Mask Ventilation: easy mask Induction: Rapid Sequence Blade Type: King Blade Size: 4 Support Device: Video Laryngoscope Device: Endotracheal Tube Location: Oral Tube s... Number of days: 2 Other Wound Anterior;Lower;Proximal;Right Arm (Active) Date/Time: 06/29/221999 Orientation: Anterior;Lower;Proximal;Right Location: Arm Number of days: 8 Other Wound Left Ear (Active) Date/Time: 07/03/221839 Orientation: Left Location: Ear Number of days: 4 Other Wound Right Ear (Active) Date/Time: 07/03/221839 Orientation: Right Location: Ear Number of days: 4 Indwelling Transurethral Urinary Catheter (Active) Placement Date/Time: 07/07/22 1613 Name/Credentials of person who placed: ALFRED Acosta Inserted by ?: No Size (FR): 16 Urinary Catheter Type: Coude Catheter Balloon Size: 10 mL Closed System Maintained This Shift: Yes, Seal Intact Number of ... Number of days: 0 DVT Prophylaxis: Heparin subq and SCD GI Prophylaxis: protonix Diet: NPO; Tube feeding Activity: Bedrest Code status: Full Code Disposition: MICU Akbar Patten MD ([id number]-Fellow) Pulmonary Disease and Critical Care Medicine Division of Pulmonary, Critical Care, & Sleep Medicine [facility] 07/05/2022 3:49 PM MOTIVE PAINT TECHNICIAN Associated attestation - Tolu Leach MD - 07/08/2022 5:37 PM AUTOMOTIVE PAINT TECHNICIAN MICU Attending Note: I have seen and examined the patient with the house staff on MICU team. I have verified all detailsof the house staff's note and agree with the documentation except for the changes I have documentedbelow: Interval History: Ms much improved. Switched to ASV. Exam: Vitals: 07/08/22 1100 07/08/22 1200 07/08/22 1225 07/08/22 1536 BP: 162/86 144/77 Pulse: 80 76 80 Resp: (!) 8 16 16 Temp: 98 ??F (36.7 ??C) SpO2: 100% 100% 100% Weight: Height: Neuro: spontaneous eye opening no command following. CVS: S1S2+, RRR RS: BL mechanical breath sounds Abd: soft NT ND BS+ Ext: L BKA Labs: CBC: Recent Labs Component Name 07/08/22 0334 07/07/22 03407/06/22348 WBC 6.0 5.0 6.5 HGB 8.8* 9.5* 9.7* HCT 26.7* 28.9* 29.3* BMP: Recent Labs Component Name 07/08/22 1222 07/08/22 0334 07/07/22 1957 07/07/22 1205 07/07/22 0345 07/06/22 1218 07/06/22 0349 NA 145 146* 145 - 144 - 150* CL 113* 114* 115* - 114* - 115* CO2 22 20* 20* - 22 - 21* BUN 40* 39* 39* - 39* - 34* CREATININE 2.45* 2.64* 2.75* - 2.85* - 2.76* CALCIUM 9.2 8.8 8.9 - 8.6 - 7.6* PHOS - 2.4* - - 2.8 - 2.9 - = values in this interval not displayed. Hepatic: Recent Labs Component Name 06/30/22 1039 06/27/22 2215 06/21/22 1926 ALT 5 6 10 AST 13 19 19 TBILI 0.3 0.3 0.3 PROT 6.2 8.3 8.3 ALB 2.2* 3.4 3.2* ALKPHOS 65 95 88 Coagulation: Recent Labs Component Name 06/27/22 2215 05/11/22 1309 03/11/22 1059 PT 12.8 13.5 15.4* INR 1.0 1.0 1.2 Cardiac Markers: Recent Labs Component Name 06/28/22 0141 06/27/22 2215 05/30/22 1750 TROPONINI <0.010 <0.010 <0.010 ABGs: No results for input(s): PHART, PO2ART, [id number], BEART in the last 39324 hours. 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 (CMS/HCC) POA: Yes Acute encephalopathy POA: Yes Sepsis without acute organ dysfunction (CMS/HCC) POA: Yes PAD (peripheral artery disease) (CMS/HCC) POA: Yes History of stroke POA: Yes Protein-calorie malnutrition, unspecified severity (CMS/HCC) POA: Yes Aspiration into airway POA: Yes Leukocytosis, unspecified type POA: Yes Tachycardia POA: Yes Hypoxia POA: Yes Acute respiratory failure with hypoxia (CMS/HCC) POA: Yes Pneumonia of right lower lobe due to infectious organism POA: Yes Atelectasis, right POA: Yes Contrast-induced nephropathy POA: Yes Zenker diverticula POA: Yes Hypernatremia POA: No Plan: D/with neurology and cont current AED regimen.Cont ASA and statin. Did not tolerate PSV. Cont on ASV. Cont tube feeds SAMANTHA most likely related to contrast injury. UOP decent. Creat plateaued. Cont flomax and add oxybutynin Pt. is critically ill with vital organ impairment or failure Time involved in the performance of separately billable procedures, teaching, reviewing education material was not counted towards critical care time. Patient is unable or incompetent to participate in giving a history and/or making decisions and discussion is necessary for determining treatment decisions. Overall critical care time provided: 30 Mins. Date of Service: 07/08/2022 Critical Care Attending: Dr. Tolu Leach MD, MPH * Gaurav Pineda RCP - 07/08/2022 8:58 AM CST RT unable to safely deliver IPV psi 35 while patient is on VC 13 480 10. Peak pressures 52 and Plateau 40. RT changed vent setting to PSV 10/10 to deliver duration of IPV treatment. On PSV, peak pressure 36 and plateau 28. Returned patient to prior settings after treatment. MOTIVE PAINT TECHNICIAN * Corina Luther MD - 07/08/2022 8:00 AM CST Neurology Consult Note Patient: Mojgan Tabor Age: [age] year old Admission Date and Time: 06/27/2022 Hospital length of stay: 10 Subjective Reason for consult: Concerns about seizure and management of AED medications History of Presenting Illness: Mojgan Tabor is a 62 year old male with past medical history of hypertension, hyperlipidemia, R ANESTHESIA 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 His imaging was concerning for aspiration pneumonia and zenker diverticulum. ENTwas consulted for the Zenker diverticulum and they recommended outpatient procedure. For his aspiration pneumonia and right hemithorax opacification with mediastinal shift, pulmonology was consulted.He was transferred to MICU due to recurring events of mucus plugging with desaturations. He underwent awake bronchoscopy with suction of mucus plugs and had initial radiographic improvement and also in oxygenation on 07/05/2022. He is currently on Levetiracetam 2 grams BID, Lacosamide 200 mg BID, Clobazam 20 mg BID, Depakote 500 mg Q6H. Neurology was consulted for eyelid blinking movement as well as orofacial movements notedby the primary team. As per the bedside nurse, patient was taken off propofol yesterday and that iswhen they started noticing these movements. There is no obvious shaking or abnormal movement anywhere. Bedside 2 mg ativan was given which resulted resolving in eye blinking movement. Of note, patient was noted to have SAMANTHA and primary team requested assistance in management of AED. Interval History: No acute events overnight. Patient is afebrile and his vital signs were stable Past Medical History No history on file. Past Medical History: Diagnosis Date ??? CVA (cerebral vascular accident) (CMS/HCC) ??? HTN (hypertension) ??? Seizure (CMS/HCC) Past Surgical History: Procedure Laterality Date ??? ENDOSCOPY, UPPER N/A 03/25/2022 N/A; ESOPHAGOGASTRODUODENOSCOPY (EGD) DIAGNOSTIC with PEG Placement ??? Leg Amputation, Below Knee Left 03/15/2022 Left; LEFT BKA POSS AKA Allergies Allergies Allergen Reactions ??? Clonazepam Psychiatric hallucinations Family History FMHx: Unable to obtain family history due to altered mental status/non availability of family members for collateral info. Social History Social history couldn't be obtained due to altered mental status/non availability of family membersfor collateral info. Review of Systems Patient intubated, unable to review Objective BP 122/87 Pulse 80 Temp 98.2 ??F (36.8 ??C) (Oral) Resp 16 Ht 1.854 m (6' 1 ) Wt 60.5 kg (133 lb 6.1 oz) SpO2 100% Temp (30hrs) Max:98.9 ??F (37.2 ??C) Body mass index is 17.6 kg/m??. Exam: Awake, not following commands Intubated and in restraints in upper extremities Pupils 4 mm reactive bilaterally Cannot appreciate any facial asymmetry due to the tube Tone normal decreased bulk Left leg below knee amputation Labs: Valproic acid free 42 (high) Valproic acid total 56 Clobazam 222 cEEG: IMPRESSION This is an abnormal cEEG due to 1) right fronto-temporal epileptiform discharges and 2) generalizedslowing. ?? CLINICAL CORRELATION: From 07/06-07/07 these findings indicate an area of increased cortical irritability superimposed on a diffuse encephalopathy, but are not specific to etiology. No electrographic seizures were seen duringthis epoch. ?? From 07/07-07/08 these findings indicate an area of increased cortical irritability superimposed on a diffuse encephalopathy, but are not specific to etiology. No electrographic seizures were seen duringthis epoch. Episodes of frequent blinking had no electro-cerebral correlate. ?? Neuroimaging: CT head 06/21/2022: Unchanged hypodense area of the right medial occipital lobe, consistent with a chronic right posterior cerebral artery (ANESTHESIA ATTENDING) vascular territory infarct. Unchanged small chronic lacunes of the left cerebellum, left paramedian isabella, thalami, and left basal ganglia. Scattered and confluent white matter hypodensities, which are nonspecific but likely represents the sequela of chronic microangiopathic change. Moderate generalized parenchymal volume loss with ex vacuo dilation of the ventricles. Re-demonstrated complete opacification of the right maxillary sinus with mixed density material extending into the right nasal cavity through an accessory ostium, which may represent an antrochoanal polyp. Mild mucosal thickening of the ethmoidair cells. Incidentally noted left middle nasal turbinate cory bullosa versus lamella. Healed fracture deformity of the left lamina papyracea; otherwise, orbits are unremarkable. Mastoids demonstrate no significant abnormality. Re-demonstrated left paramidline occipital scalp ovoid lesion measuring 3.4 x 1.3 x 0.6 cm (CC x TV x AP; , 08/15), which favors a sebaceous or epidermal inclusion cyst. Soft tissue opacification of the right greater than left external auditory canals, consistent with cerumen. Moderate calcific atherosclerosis of the carotid siphons. Assessment and Plan: Assessment: Mojgan Taobr is 62 year old gentleman with refractory epilepsy, R ANESTHESIA ATTENDING infarct (residual left sided weakness), HTN, HLD, alcohol abuse and cervical osteoarthritis who is currently admitted for hypoxicrespiratory failure secondary to community acquired pneumonia. EEG is not correlating with the eyeli d blinking or orofacial movement, most likely it is myoclonus. Plan: - Discontinue EEG - Will follow up on Valproic acid on 07/09/2022 - Continue Depakote 500 mg Q6H - Continue Levetiracetam to 500 mg BID (due to low creatinine clearance 25 mL/min) - Continue Clobazam 20 mg BID - Continue Lacosamide 200 mg BID - Monitor electrolytes and replete as needed (Keep Mg>2, Phos>4 and normal sodium) - Please see attending attestation for update of the plan - Please call Neurology if you have any questions/concerns Discussed with Neurocritical Attending Physician, Dr. Macario Luther MD Neurology Resident. MOTIVE PAINT TECHNICIAN Associated attestation - Nurys Sorto MD - 07/08/2022 4:30 PM AUTOMOTIVE PAINT TECHNICIAN I have seen and examined the patient with the resident and I agree with the findings and plan of care as documented by the resident except for below: Plan of care for today: Clinically improving and MICU attempting to extubate. Cont current AED dose Can stop cEEG Date of Service: 07/08/2022 Nurys Sorto MD Neurologic Critical Care Attending * Clover Gibbons RN - 07/07/2022 9:56 PM CST Problem: Safety related to restraint use Goal: Absence of injury while restrained Outcome: Progressing MOTIVE PAINT TECHNICIAN * Mandi Jiménez RN - 07/07/2022 10:56 AM CST Case Management Progress Note Anticipated level of care at discharge: Penitentiary - Medicaid Barrier to Disposition: Intubated and sedated, SAMANTHA, Seizure evaluation/EEG. TF, Active problems. Medical staff continues to build poc for disposition and current problems. Will await readiness for disposition. Anticipated Discharge Date: 07/14/22 Transportation at Discharge: Ambulance Transportation to MD: Ambulance Equipment at Home: Equipment at Home: Facility Equipment Additional DME needed: tbd Pharmacy benefit: Yes Comments: Mandi Jiménez Rn BSN [facility] [employer] LibrarianField Rep: [phone] 07/07/2022 MOTIVE PAINT TECHNICIAN * Corina Luther MD - 07/07/2022 9:26 AM CST Neurology Consult Note Patient: Mojgan Tabor Age: [age] year old Admission Date and Time: 06/27/2022 Hospital length of stay: 9 Subjective Reason for consult: Concerns about seizure and management of AED medications History of Presenting Illness: Mojgan Tabor is a 62 year old male with past medical history of hypertension, hyperlipidemia, R ANESTHESIA 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 His imaging was concerning for aspiration pneumonia and zenker diverticulum. ENTwas consulted for the Zenker diverticulum and they recommended outpatient procedure. For his aspiration pneumonia and right hemithorax opacification with mediastinal shift, pulmonology was consulted.He was transferred to MICU due to recurring events of mucus plugging with desaturations. He underwent awake bronchoscopy with suction of mucus plugs and had initial radiographic improvement and also in oxygenation on 07/05/2022. He is currently on Levetiracetam 2 grams BID, Lacosamide 200 mg BID, Clobazam 20 mg BID, Depakote 500 mg Q6H. Neurology was consulted for eyelid blinking movement as well as orofacial movements notedby the primary team. As per the bedside nurse, patient was taken off propofol yesterday and that iswhen they started noticing these movements. There is no obvious shaking or abnormal movement anywhere. Bedside 2 mg ativan was given which resulted resolving in eye blinking movement. Of note, patient was noted to have SAMANTHA and primary team requested assistance in management of AED. Interval History: No acute events. Vital signs stable Past Medical History No history on file. Past Medical History: Diagnosis Date ??? CVA (cerebral vascular accident) (CMS/HCC) ??? HTN (hypertension) ??? Seizure (CMS/HCC) Past Surgical History: Procedure Laterality Date ??? ENDOSCOPY, UPPER N/A 03/25/2022 N/A; ESOPHAGOGASTRODUODENOSCOPY (EGD) DIAGNOSTIC with PEG Placement ??? Leg Amputation, Below Knee Left 03/15/2022 Left; LEFT BKA POSS AKA Allergies Allergies Allergen Reactions ??? Clonazepam Psychiatric hallucinations Family History FMHx: Unable to obtain family history due to altered mental status/non availability of family members for collateral info. Social History Social history couldn't be obtained due to altered mental status/non availability of family membersfor collateral info. Review of Systems Patient intubated, unable to review Objective BP 116/82 Pulse 99 Temp 98.9 ??F (37.2 ??C) (Oral) Resp 13 Ht 1.854 m (6' 1 ) Wt 60.5 kg (133 lb 6.1 oz) SpO2 99% Temp (30hrs) Max:99.2 ??F (37.3 ??C) Body mass index is 17.6 kg/m??. Exam: Awake, not following commands Intubated and in restraints in upper extremities Pupils 4 mm reactive bilaterally Eyelid twitching movement noted bilaterally without any obvious nystagmus Cannot appreciate any facial asymmetry due to the tube Tone normal decreased bulk Left leg below knee amputation Labs: Valproic acid: 72 Pending Clobazam level cEEG: IMPRESSION This is an abnormal cEEG due to 1) right fronto-temporal epileptiform discharges and 2) generalizedslowing. ?? CLINICAL CORRELATION: From 07/06-07/07 these findings indicate an area of increased cortical irritability superimposed on a diffuse encephalopathy, but are not specific to etiology. No electrographic seizures were seen duringthis epoch. ?? Neuroimaging: CT head 06/21/2022: Unchanged hypodense area of the right medial occipital lobe, consistent with a chronic right posterior cerebral artery (ANESTHESIA ATTENDING) vascular territory infarct. Unchanged small chronic lacunes of the left cerebellum, left paramedian isabella, thalami, and left basal ganglia. Scattered and confluent white matter hypodensities, which are nonspecific but likely represents the sequela of chronic microangiopathic change. Moderate generalized parenchymal volume loss with ex vacuo dilation of the ventricles. Re-demonstrated complete opacification of the right maxillary sinus with mixed density material extending into the right nasal cavity through an accessory ostium, which may represent an antrochoanal polyp. Mild mucosal thickening of the ethmoidair cells. Incidentally noted left middle nasal turbinate cory bullosa versus lamella. Healed fracture deformity of the left lamina papyracea; otherwise, orbits are unremarkable. Mastoids demonstrate no significant abnormality. Re-demonstrated left paramidline occipital scalp ovoid lesion measuring 3.4 x 1.3 x 0.6 cm (CC x TV x AP; , 08/15), which favors a sebaceous or epidermal inclusion cyst. Soft tissue opacification of the right greater than left external auditory canals, consistent with cerumen. Moderate calcific atherosclerosis of the carotid siphons. Assessment and Plan: Assessment: Mojgan Tabor is 62 year old gentleman with refractory epilepsy, R ANESTHESIA ATTENDING infarct (residual left sided weakness), HTN, HLD, alcohol abuse and cervical osteoarthritis who is currently admitted for hypoxicrespiratory failure secondary to community acquired pneumonia. EEG is not correlating with the eyeli d blinking or orofacial movement, most likely it is myoclonus. Plan: - Continue video EEG - Repeat level of Valproic acid on 07/09/2022 - Continue Depakote 500 mg Q6H - Continue Levetiracetam to 500 mg BID (in light of his SAMANTHA) - Continue Clobazam 20 mg BID - Continue Lacosamide 200 mg BID - Continue Depakote 500 mg Q6H - Monitor electrolytes and replete as needed (Keep Mg>2, Phos>4 and normal sodium) - Please see attending attestation for update of the plan Discussed with Neurocritical Attending Physician, Dr. Macario Luther MD Neurology Resident. MOTIVE PAINT TECHNICIAN Associated attestation - Nurys Sorto MD - 07/07/2022 3:28 PM AUTOMOTIVE PAINT TECHNICIAN I have seen and examined the patient with the resident and I agree with the findings and plan of care as documented by the resident except for below: Plan of care for today: Patient has known epileptiform discharges because of his epilepsy. His blinking movements are not epileptic and some of them might be voluntary. Cont cEEG for another day Cont all AEDs at current dosage Date of Service: 07/07/2022 Nurys Sorto MD Neurologic Critical Care Attending * Akbar Patten MD - 07/07/2022 7:48 AM CST MICU PROGRESS NOTE Name: Mojgan Tabor Admission date: 06/27/2022 Hospital Day: 9 SUBJECTIVE BRIEF HOSPITAL COURSE: Mojgan Tabor is a 62 year old male w/ PMHx significant for CVA with residual L sided defects, history of seizure disorder, dementia, dysphagia with recurrent aspiration (PEG-dependent), Zenker diverticulum, hypertension, BPH, PAD s/p L AKA d/t non-healing foot wound (02/2022), who initially presented to [facility] on 06/28 with complaints of hypoxia. The patient is a shelter resident at [facility]. Imaging in ED showed likely aspiration pneumonia, for which he was started on antibiotics. ENT was consulted for possible surgical intervention with his Zenker diverticulum. On 07/02 the patient was noted to have R hemithorax opacification with mediastinal shift. Pulmonary Medicine was consulted on 07/03, and due to recurring events of mucus plugging with desaturations, the patient was transferred to the ICU for further evaluation and management. Upon arrival, patient underwent awake bronchoscopy with suction of mucus plugs and had initial radiographic improvement and also in oxygenation. ICU timeline: 07/05/22: Chest xray showed atelectasis of R lung with haziness of LLL which may s/o segmental atelectasis 07/06/22: Intubated and bronchoscopy was performed; Improved chest xray post bronchoscopy with persistently collapsed RLL; Bedside ultrasound- Collapsed RLL with curtain sign on the right hemithorax; small Effusion on the Right; IPV initiated; Continuous EEG started by neurology INTERVAL HISTORY: Opening eyes to commands Not following commands consistently ROS ROS could not be done as patient is intubated OBJECTIVE Temp: [97.7 ??F (36.5 ??C)-99.2 ??F (37.3 ??C)] 98.9 ??F (37.2 ??C) Pulse: [84-107] 107 Resp: [12-16] 13 BP: (92-140)/(64-87) 100/70 O2 %: [30 %-60 %] 30 % I/O last 2 completed shifts: In: 1739.7 [I.V.:441.7] Out: 1100 [Urine:1100] Physical Exam GEN No acute distress; intubated HEENT Does not track with eyes CHEST No chest wall tenderness CARDIO RRR, no M/R/G, +S1/S2 RESP Diminished right lung breath sounds ABD Soft, NT, ND, +BS. EXT L BKA NEURO Non focal SKIN Warm, dry, no rashes/lesions noted DATA Recent Labs Component Name 07/07/22 0345 07/06/229 07/05/22 0226 WBC 5.0 6.5 5.4 RBC 3.12* 3.16* 2.88* HGB 9.5* 9.7* 8.9* HCT 28.9* 29.3* 27.3* MCV 92.6 92.7 94.8 MCHC 32.9 33.1 32.6 PLTCOUNT 162 157 143* NEUTPCT 52.9 53.9 56.9 NEUTABS 2.63 3.51 3.10 Recent Labs Component Name 07/07/22 0345 07/06/22202407/06/22 1218 07/01/22 1634 06/30/22 1039 06/29/22 0709 06/27/22 2215 06/21/22 1926 POTASSIUM 4.5 3.7 4.7* - 4.0 - 4.4 4.5 CO2 22 19* 22 - 24 - 26 29 BUN 39* 34* 37* - 7 - 17 14 CREATININE 2.85* 2.48* 2.73* - 0.58* - 0.78 0.58* GLUCOSE 118* 88 91 - 115 - 98 116* CALCIUM 8.6 7.4* 8.1* - 9.5 - 10.3* 10.7* ALT - - - - 5 - 6 10 ALKPHOS - - - - 65 - 95 88 AST - - - - 13 - 19 19 EGFR 24* 29* 26* - >90 - >90 >90 - = values in this interval not displayed. Chest xray Endotracheal tube terminates in the mid thoracic trachea. Interval significantly improved aeration of the right lung. Moderate opacity remains in the right mid and lower chest consistent with atelectasis/airspace disease. Small right pleural fluid is present. There is improved aeration of the left lower lung field, with mild residual atelectasis/airspace disease. Pleural fluid may be associated. No pneumothorax is visible. The cardiomediastinal silhouette is normal. The visible bony thorax is intact. ASSESSMENT Epilepsy, unspecified, not intractable, without status epilepticus (CMS/HCC) POA: Yes Muscle weakness (generalized) POA: Yes Hemiplegia and 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- dominant side (CMS/HCC) POA: Yes Acute encephalopathy POA: Yes Sepsis without acute organ dysfunction (CMS/HCC) POA: Yes PAD (peripheral artery disease) (CMS/HCC) POA: Yes History of stroke POA: Yes Protein-calorie malnutrition, unspecified severity (CMS/HCC) POA: Yes Aspiration into airway POA: Yes Leukocytosis, unspecified type POA: Yes Tachycardia POA: Yes Hypoxia POA: Yes Acute respiratory failure with hypoxia (CMS/HCC) POA: Yes Pneumonia of right lower lobe due to infectious organism POA: Yes Atelectasis, right POA: Yes Contrast-induced nephropathy POA: Yes Zenker diverticula POA: Yes Hypernatremia POA: No PLAN Neurological - Depakote 500 mg q6h - clobazam 20 mg bid - Keppra 500mg bid - Vimpat 200 mg BID - continue ASA - Lipitor 40 mg daily - Thiamine 100 mg daily - Folic acid 1 mg daily - Aspiration precautions - Seizure precautions - Follow neurology recommendations ?? Cardiovascular - continue ASA - wound care - Keep MAP >65 ?? Pulmonary - Continue mechanical ventilation with Vt 480 ml/PEEP 10/RR 13 and FiO2 30% -wean FiO2 for SpO2>92% - Discontinue mucomyst, HST saline and duo nebs - Continue IPV for another day - Start High flow nasal cannula for supplemental oxygen - completed 7 days of antibiotics - management of zenker's diverticulum as per ENT?? GI - Protonix 40 mg daily - Miralax 17 gm daily - continue tube feeding - consult nutrition Renal - Discontinue IVF ??- measure BMP every 8 hours - Free water flushes 250 cc q4h--> sodium trended down from 150 to 144--> decrease to 150 cc Q4H - BMP every 8 hours and monitor renal function - flomax 0.4 mg daily Endocrine Maintain Euglycemia 140-180 mg/dL ?? Infectious Disease Completed Zosyn for 7 days ?? Hematology/Oncology - Hgb threshold for transfusion: <7 in absence of active bleeding - platelet count threshold for transfusion: <10 in absence of active bleeding ?? Other No active issues. ?? LDA: Peripheral IV Left Antecubital (Active) Placement Date/Time: 06/27/222139 Existing LDA : EMS Orientation: Left Location: Antecubital IV Catheter Size: 18 Gauge Number of days: 9 Peripheral IV Anterior;Left;Upper Arm (Active) Placement Date/Time: 06/29/222144 Orientation: Anterior;Left;Upper Location: Arm Name/Credentials of person who placed: Rhianna SIMON IV Catheter Size: 20 Gauge Technique: Ultrasound Guidance Number of start attempts: 1 Local Anesthetic Used?: No... Number of days: 7 Fecal Drainage Device With balloon (Active) Placement Date: 07/06/22 Person who placed: Patti SIMON Fecal Incontinence Device: With balloon Number of days: 1 Enteral - Percutaneous Endoscopic Gastrostomy Abdomen;Midline;Upper (Active) Placement Date/Time: 03/25/221653 Name/Credentials of person who placed: Jolynn Ann MD Type: Percutaneous Endoscopic Gastrostomy Tube Location: Abdomen;Midline;Upper Size (FR): 24 Procedure Tolerance: Well Number of days: 103 ETT Endotracheal Tube 8 MM (Active) Placement Date/Time: 07/05/222127 Person who placed: Shannon Nino MD Mask Ventilation: easy mask Induction: Rapid Sequence Blade Type: King Blade Size: 4 Support Device: Video Laryngoscope Device: Endotracheal Tube Location: Oral Tube s... Number of days: 1 Other Wound Anterior;Lower;Proximal;Right Arm (Active) Date/Time: 06/29/221999 Orientation: Anterior;Lower;Proximal;Right Location: Arm Number of days: 7 Other Wound Left Ear (Active) Date/Time: 07/03/221839 Orientation: Left Location: Ear Number of days: 3 Other Wound Right Ear (Active) Date/Time: 07/03/221839 Orientation: Right Location: Ear Number of days: 3 DVT Prophylaxis: Heparin subq and SCD GI Prophylaxis: protonix Diet: NPO; Tube feeding 20 cc/hr Activity: Bedrest Code status: Full Code Disposition: ASHUTOSH Patten MD (PGY6-Fellow) Pulmonary Disease and Critical Care Medicine Division of Pulmonary, Critical Care, & Sleep Medicine [facility] 07/05/2022 7:48 AM MOTIVE PAINT TECHNICIAN Associated attestation - Tolu Leach MD - 07/07/2022 4:17 PM AUTOMOTIVE PAINT TECHNICIAN MICU Attending Note: I have seen and examined the patient with the house staff on MICU team. I have verified all detailsof the house staff's note and agree with the documentation except for the changes I have documentedbelow: Interval History: MS slightly better. R Lung atelectasis improved. Exam: Vitals: 07/07/22 1000 07/07/22 1100 07/07/22 1200 07/07/22 1300 BP: 105/79 96/72 100/65 110/75 Pulse: 97 97 96 93 Resp: 13 13 13 13 Temp: 98.5 ??F (36.9 ??C) SpO2: 100% 100% 100% 98% Weight: Height: Neuro: spontaneous eye opening no command following. CVS: S1S2+, RRR RS: BL mechanical breath sounds Abd: soft NT ND BS+ Ext: L BKA Labs: CBC: Recent Labs Component Name 07/07/22 0345 07/06/2234807/05/22225 WBC 5.0 6.5 5.4 HGB 9.5* 9.7* 8.9* HCT 28.9* 29.3* 27.3* BMP: Recent Labs Component Name 07/07/22 1205 07/07/22 0345 07/06/22202407/06/22 1218 07/06/22 0349 07/05/22203807/05/22 0226 NA 141 144 146* - 150* - 151* CL 113* 114* 119* - 115* - 115* CO2 23 22 19* - 21* - 25 BUN 38* 39* 34* - 34* - 40* CREATININE 2.85* 2.85* 2.48* - 2.76* - 3.43* CALCIUM 8.8 8.6 7.4* - 7.6* - 9.0 PHOS - 2.8 - - 2.9 - 5.0 - = values in this interval not displayed. Hepatic: Recent Labs Component Name 06/30/22 1039 06/27/22221406/21/22 1926 ALT 5 6 10 AST 13 19 19 TBILI 0.3 0.3 0.3 PROT 6.2 8.3 8.3 ALB 2.2* 3.4 3.2* ALKPHOS 65 95 88 Coagulation: Recent Labs Component Name 06/27/22 2215 05/11/22 1309 03/11/22 1059 PT 12.8 13.5 15.4* INR 1.0 1.0 1.2 Cardiac Markers: Recent Labs Component Name 06/28/22 0141 06/27/225 05/30/22 1750 TROPONINI <0.010 <0.010 <0.010 ABGs: No results for input(s): PHART, PO2ART, TKH2COV, BEART in the last 83605 hours. 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 (CMS/HCC) POA: Yes Acute encephalopathy POA: Yes Sepsis without acute organ dysfunction (CMS/HCC) POA: Yes PAD (peripheral artery disease) (CMS/HCC) POA: Yes History of stroke POA: Yes Protein-calorie malnutrition, unspecified severity (CMS/HCC) POA: Yes Aspiration into airway POA: Yes Leukocytosis, unspecified type POA: Yes Tachycardia POA: Yes Hypoxia POA: Yes Acute respiratory failure with hypoxia (CMS/HCC) POA: Yes Pneumonia of right lower lobe due to infectious organism POA: Yes Atelectasis, right POA: Yes Contrast-induced nephropathy POA: Yes Zenker diverticula POA: Yes Hypernatremia POA: No Plan: D/with neurology and AED regimen adjusted accordingly after review of AED levels. Cont ASA and statin. Cont IPV for now. Not ready for vent liberation. Cont tube feeds Cont on VAC. Cont IPV with mucomyst and hypertonic saline nebs Hypernatremia multifactorial and in conjunction with SAMANTHA - improving. SAMANTHA most likely related to contrast injury. UOP decent. DC iv fluids Cont flomax and add oxybutynin Pt. is critically ill with vital organ impairment or failure Time involved in the performance of separately billable procedures, teaching, reviewing education material was not counted towards critical care time. Patient is unable or incompetent to participate in giving a history and/or making decisions and discussion is necessary for determining treatment decisions. Overall critical care time provided: 30 Mins. Date of Service: 07/07/2022 Critical Care Attending: Dr. Tolu Leach MD, MPH * Svetlana Lewis MD - 07/07/2022 6:30 AM CST Otolaryngology Progress Note 07/07/2022 SUBJECTIVE: Pt intubated two days ago and proceeded to undergo bronchoscopy with thick mucus suctioned. Since intubation noted to have some twitching and eye movements concerning for seizures in setting of hx ofrefractory epilepsy currently with EEG monitoring in place. VITALS: Temp (30hrs) Max:99.2 ??F (37.3 ??C) Vitals: 07/07/22 0300 07/07/22 0400 07/07/22 0500 07/07/22 0600 BP: 118/79 118/86 100/80 100/70 Pulse: 99 101 103 107 Resp: 13 13 13 13 Temp: 98.9 ??F (37.2 ??C) SpO2: 99% 100% 98% 100% Weight: 60.5 kg (133 lb 6.1 oz) Height: Intake/Output Summary (Last 24 hours) at 07/07/2022 0630 Last data filed at 07/07/2022 0600 Gross per 24 hour Intake 2068.33 ml Output 1100 ml Net 968.33 ml MEDICATIONS FOR CURRENT ENCOUNTER: SCHEDULED MEDICATIONS: 0.9% NaCl injection 3 mL, Intracatheter, q8h acetylcysteine (Mucomyst) 20 % solution 600 mg, Inhalation, q6h albuterol-ipratropium (Duo-Neb) nebulizer solution 3 mL, Inhalation, q6h artificial tears ophthalmic ointment, Each Eye, q8h aspirin chew tablet 81 mg, Enteral Tube, QDAY atorvastatin (Lipitor) tablet 40 mg, Enteral Tube, QDAY chlorhexidine (Peridex) 0.12 % oral solution 15 mL, Mouth/Throat, BID cloBAZam (Onfi) tablet 20 mg, Enteral Tube, BID divalproex sprinkle (Depakote Sprinkle) capsule 500 mg, Enteral Tube, Every 6 Hours (03,09,15,21) fluticasone propionate (Flonase) nasal spray 1 spray, Each Nostril, QDAY heparin injection 5,000 Units, Subcutaneous, TID lacosamide (Vimpat) tablet 200 mg, Enteral Tube, BID levETIRAcetam (Keppra) tablet 500 mg, Enteral Tube, BID pantoprazole (Protonix) injection 40 mg, Intravenous, QDAY polyethylene glycol 3350 (Miralax) packet 17 g, Enteral Tube, QDAY sodium chloride (Inhalant) 7 % nebulizer solution 4 mL, Inhalation, BID tamsulosin (Flomax) capsule 0.4 mg, Oral, QDAY [COMPLETED] LORazepam (Ativan) injection 2 mg, Intravenous, Once [COMPLETED] potassium chloride (Klor-Con) packet 40 mEq, Enteral Tube, Once ?? [COMPLETED] potassium chloride 40 mEq in 270 mL bolus, Intravenous, Once CONTINUOUS MEDICATIONS: ?? propofol (Diprivan) infusion, Intravenous, Continuous PRN MEDICATIONS: 0.9% NaCl injection 1-10 mL, Intracatheter, PRN acetaminophen (Tylenol) tablet 500 mg, Enteral Tube, q4h PRN artificial tears ophthalmic solution 1 drop, Each Eye, TID PRN ?? bisacodyl (Dulcolax) suppository 10 mg, Rectal, QDAY PRN PHYSICAL EXAM: Gen: Sedated HEENT: EEG monitoring in place, neck soft Pulm: Intubated, PEEP 10, FiO2 30 IMAGING CXR reviewed -- improvement in white out of right hemithorax ASSESSMENT: Mojgan Tabor is a 62 year old male with a PMH significant for R. Occipital stroke (2014), head injury, seizures, Alzheimer's, Right BKA, refractory epilepsy, dysphasia w/PEG tube placement on 03/25/22 who is seen in consultation for Zenker's diverticulum. Recently seen outpatient with plans for elective surgery for his known Zenker's diverticulum, however he is again admitted with aspiration PNA. PLAN: - Patient currently being monitored for seizures, will wait for patient to improve clinically priorto any surgery - Improvement on imaging of opacification of the right hemithorax after bronchoscopy -- wean vent as able - Please call ENT with any questions or concerns. Svetlana Lewis MD Otolaryngology - Head and Neck Surgery 07/07/2022 MOTIVE PAINT TECHNICIAN Associated attestation - Alden Hurtado MD - 07/07/2022 12:51 PM AUTOMOTIVE PAINT TECHNICIAN Attending Physician Supervisory Note I personally interviewed and examined the patient and agree with the Resident above. In addition I note: Intubated, ventilated, EEG in progress. I spoke again with his family who was present and discussedwith MICU team. Will plan tentatively for surgery for his Zenker's diverticulum next week. The soonest availability at this time is 07/15. Meanwhile will follow his clinical progress. If he is unable to wean off the vent by then, can perform tracheostomy at the same time. Alden Hurtado MD * Akbar Patten MD - 07/06/2022 5:04 PM CST MICU PROGRESS NOTE Name: Mojgan Tabor Admission date: 06/27/2022 Hospital Day: 8 SUBJECTIVE BRIEF HOSPITAL COURSE: Mojgan Tabor is a 62 year old male w/ PMHx significant for CVA with residual L sided defects, history of seizure disorder, dementia, dysphagia with recurrent aspiration (PEG-dependent), Zenker diverticulum, hypertension, BPH, PAD s/p L AKA d/t non-healing foot wound (02/2022), who initially presented to [facility] on 06/28 with complaints of hypoxia. The patient is a shelter resident at [facility]. Imaging in ED showed likely aspiration pneumonia, for which he was started on antibiotics. ENT was consulted for possible surgical intervention with his Zenker diverticulum. On 07/02 the patient was noted to have R hemithorax opacification with mediastinal shift. Pulmonary Medicine was consulted on 07/03, and due to recurring events of mucus plugging with desaturations, the patient was transferred to the ICU for further evaluation and management. Upon arrival, patient underwent awake bronchoscopy with suction of mucus plugs and had initial radiographic improvement and also in oxygenation. ICU timeline: 07/05/22: Chest xray showed atelectasis of R lung with haziness of LLL which may s/o segmental atelactasis INTERVAL HISTORY: Intubated and bronchoscopy was performed overnight Improved chest xray post bronchoscopy with persistently collapsed RLL Bedside ultrasound- Collapsed RLL with curtain sign on the right hemithorax; small Effusion on the Right IPV initiated Continuous EEG started by neurology ROS ROS could not be done as patient is intubated OBJECTIVE Temp: [97.7 ??F (36.5 ??C)-99 ??F (37.2 ??C)] 98 ??F (36.7 ??C) Pulse: [84-117] 88 Resp: [7-24] 13 BP: (92-198)/(64-122) 130/83 O2 %: [30 %-100 %] 30 % I/O last 2 completed shifts: In: 3160.5 [I.V.:2371.5] Out: 1525 [Urine:1525] Physical Exam GEN No acute distress; intubated HEENT Does not track with eyes CHEST No chest wall tenderness CARDIO RRR, no M/R/G, +S1/S2 RESP Diminished right lung breath sounds ABD Soft, NT, ND, +BS. EXT L BKA NEURO Non focal SKIN Warm, dry, no rashes/lesions noted DATA Recent Labs Component Name 07/06/22 0349 07/05/22 0226 07/04/22 0145 WBC 6.5 5.4 5.9 RBC 3.16* 2.88* 3.28* HGB 9.7* 8.9* 10.1* HCT 29.3* 27.3* 30.9* MCV 92.7 94.8 94.2 MCHC 33.1 32.6 32.7 PLTCOUNT 157 143* 141* NEUTPCT 53.9 56.9 64.0 NEUTABS 3.51 3.10 3.77 Recent Labs Component Name 07/06/22 1218 07/06/22 0349 07/05/22 2039 07/01/22 1634 06/30/22 1039 06/29/22 0709 06/27/22 2215 06/21/22 1926 POTASSIUM 4.7* 2.7* 3.5 - 4.0 - 4.4 4.5 CO2 22 21* 26 - 24 - 26 29 BUN 37* 34* 37* - 7 - 17 14 CREATININE 2.73* 2.76* 3.08* - 0.58* - 0.78 0.58* GLUCOSE 91 108 109 - 115 - 98 116* CALCIUM 8.1* 7.6* 9.1 - 9.5 - 10.3* 10.7* ALT - - - - 5 - 6 10 ALKPHOS - - - - 65 - 95 88 AST - - - - 13 - 19 19 EGFR 26* 25* 22* - >90 - >90 >90 - = values in this interval not displayed. ASSESSMENT Epilepsy, unspecified, not intractable, without status epilepticus ([facility]/HCC) POA: Yes Muscle weakness (generalized) POA: Yes Hemiplegia and 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- dominant side ([facility]/HCC) POA: Yes Acute encephalopathy POA: Yes Sepsis without acute organ dysfunction ([facility]/HCC) POA: Yes PAD (peripheral artery disease) ([facility]) POA: Yes History of stroke POA: Yes Protein-calorie malnutrition, unspecified severity ([facility]/HCC) POA: Yes Aspiration into airway POA: Yes Leukocytosis, unspecified type POA: Yes Tachycardia POA: Yes Hypoxia POA: Yes Acute respiratory failure with hypoxia ([facility]/HCC) POA: Yes Pneumonia of right lower lobe due to infectious organism POA: Yes Atelectasis, right POA: Yes Contrast-induced nephropathy POA: Yes Zenker diverticula POA: Yes Hypernatremia POA: No PLAN Neurological - Depakote 500 mg q6h - clobazam 20 mg bid - Keppra 2g bid - Vimpat 200 mg BID - continue ASA - Lipitor 40 mg daily - Thiamine 100 mg daily - Folic acid 1 mg daily - Aspiration precautions - Seizure precautions - Follow neurology recommendations ?? Cardiovascular - continue ASA - wound care - Keep MAP >65 ?? Pulmonary - Continue mechanical ventilation with Vt 480 ml/PEEP 10/RR 13 and FiO2 30% -wean FiO2 for SpO2>92% Aggressive pulmonary toilet with following ?? Mucomist 10 mg Q6H ?? Hypertonic saline 7% twice daily ?? Duo-nebs every 6 hours ?? IPV therapy Q6H - Start High flow nasal cannula for supplemental oxygen - completed 7 days of antibiotics - No current plan for OR for zenker's diverticulum?? GI - Protonix 40 mg daily - Miralax 17 gm daily - continue tube feeding - consult nutrition Renal - Discontinue IVF ??- measure BMP every 8 hours - Free water flushes 250 cc q4h--> sodium trended down from 150 to 144--> decrease to 150 cc Q4H - BMP every 8 hours and monitor renal function - flomax 0.4 mg daily Endocrine Maintain Euglycemia 140-180 mg/dL ?? Infectious Disease Completed Zosyn for 7 days ?? Hematology/Oncology - Hgb threshold for transfusion: <7 in absence of active bleeding - platelet count threshold for transfusion: <10 in absence of active bleeding ?? Other No active issues. ?? LDA: Peripheral IV Left Antecubital (Active) Placement Date/Time: 06/27/222139 Existing LDA : EMS Orientation: Left Location: Antecubital IV Catheter Size: 18 Gauge Number of days: 8 Peripheral IV Anterior;Left;Upper Arm (Active) Placement Date/Time: 06/29/222144 Orientation: Anterior;Left;Upper Location: Arm Name/Credentialsof person who placed: Rhianna SIMON IV Catheter Size: 20 Gauge Technique: Ultrasound Guidance Number ofstart attempts: 1 Local Anesthetic Used?: No... Number of days: 6 Enteral - Percutaneous Endoscopic Gastrostomy Abdomen;Midline;Upper (Active) Placement Date/Time: 03/25/221653 Name/Credentials of person who placed: Jolynn Ann MD Type: Percutaneous Endoscopic Gastrostomy Tube Location: Abdomen;Midline;Upper Size (FR): 24 Procedure Tolerance: Well Number of days: 103 ETT Endotracheal Tube 8 MM (Active) Placement Date/Time: 07/05/222127 Person who placed: Shannon Nino MD Mask Ventilation: easy mask Induction: Rapid Sequence Blade Type: King Blade Size: 4 Support Device: Video Laryngoscope Device: Endotracheal Tube Location: Oral Tube s... Number of days: 0 Other Wound Anterior;Lower;Proximal;Right Arm (Active) Date/Time: 06/29/221999 Orientation: Anterior;Lower;Proximal;Right Location: Arm Number of days: 6 Other Wound Left Ear (Active) Date/Time: 07/03/221839 Orientation: Left Location: Ear Number of days: 2 Other Wound Right Ear (Active) Date/Time: 07/03/221839 Orientation: Right Location: Ear Number of days: 2 DVT Prophylaxis: Heparin subq and SCD GI Prophylaxis: protonix Diet: NPO; Tube feeding 20 cc/hr Activity: Bedrest Code status: Full Code Disposition: MICU Akbar Patten MD (PGY6-Fellow) Pulmonary Disease and Critical Care Medicine Division of Pulmonary, Critical Care, & Sleep Medicine [facility] 07/05/2022 5:04 PM MOTIVE PAINT TECHNICIAN Associated attestation - Tolu Leach MD - 07/07/2022 8:30 AM AUTOMOTIVE PAINT TECHNICIAN MICU Attending Note: I have seen and examined the patient with the house staff on MICU team. I have verified all detailsof the house staff's note and agree with the documentation except for the changes I have documentedbelow: Interval History: Intubated and rt lung atelectasis improved. Airway pressures stable. Exam: Vitals: 07/07/22 0300 07/07/22 0400 07/07/22 0500 07/07/22 0600 BP: 118/79 118/86 100/80 100/70 Pulse: 99 101 103 107 Resp: 13 13 13 13 Temp: 98.9 ??F (37.2 ??C) SpO2: 99% 100% 98% 100% Weight: 60.5 kg (133 lb 6.1 oz) Height: Neuro: sedated CVS: S1S2+, RRR RS: BL mechanical breath sounds Abd: soft NT ND BS+ Ext: L BKA Labs: CBC: Recent Labs Component Name 07/07/2234407/06/2234807/05/22225 WBC 5.0 6.5 5.4 HGB 9.5* 9.7* 8.9* HCT 28.9* 29.3* 27.3* BMP: Recent Labs Component Name 07/07/2234407/06/22202407/06/22121707/06/2234807/05/22203807/05/22225 NA 144 146* 144 150* - 151* CL 114* 119* 115* 115* - 115* CO2 22 19* 22 21* - 25 BUN 39* 34* 37* 34* - 40* CREATININE 2.85* 2.48* 2.73* 2.76* - 3.43* CALCIUM 8.6 7.4* 8.1* 7.6* - 9.0 PHOS 2.8 - - 2.9 - 5.0 - = values in this interval not displayed. Hepatic: Recent Labs Component Name 06/30/22 1039 06/27/22 2215 06/21/22 1926 ALT 5 6 10 AST 13 19 19 TBILI 0.3 0.3 0.3 PROT 6.2 8.3 8.3 ALB 2.2* 3.4 3.2* ALKPHOS 65 95 88 Coagulation: Recent Labs Component Name 06/27/22221405/11/22 1309 03/11/22 1059 PT 12.8 13.5 15.4* INR 1.0 1.0 1.2 Cardiac Markers: Recent Labs Component Name 06/28/22 0141 06/27/225 05/30/22 1750 TROPONINI <0.010 <0.010 <0.010 ABGs: No results for input(s): PHART, PO2ART, QRQ7IRQ, BEART in the last 34131 hours. 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 (CMS/HCC) POA: Yes Acute encephalopathy POA: Yes Sepsis without acute organ dysfunction (CMS/HCC) POA: Yes PAD (peripheral artery disease) (CMS/HCC) POA: Yes History of stroke POA: Yes Protein-calorie malnutrition, unspecified severity (CMS/HCC) POA: Yes Aspiration into airway POA: Yes Leukocytosis, unspecified type POA: Yes Tachycardia POA: Yes Hypoxia POA: Yes Acute respiratory failure with hypoxia (CMS/HCC) POA: Yes Pneumonia of right lower lobe due to infectious organism POA: Yes Atelectasis, right POA: Yes Contrast-induced nephropathy POA: Yes Zenker diverticula POA: Yes Hypernatremia POA: No Plan: Has complex AED regimen. Appreciate neuro input. Adjust meds accordingly. Cont ASA Cont tube feeds Cont on VAC. Cont IPV with mucomyst and hypertonic saline nebs Hypernatremia multifactorial and in conjunction with SAMANTHA - improving. SAMANTHA most likely related to contrast injury. UOP decent. Will wait for creat to plateau. Will start D5W drip Pt. is critically ill with vital organ impairment or failure Time involved in the performance of separately billable procedures, teaching, reviewing education material was not counted towards critical care time. Patient is unable or incompetent to participate in giving a history and/or making decisions and discussion is necessary for determining treatment decisions. Overall critical care time provided: 32 Mins. Date of Service: 07/06/2022 Critical Care Attending: Dr. Tolu Leach MD, MPH * Ivy Tim MD - 07/06/2022 8:44 AM CST [facility] Department of Nephrology Date of Admission: 06/27/2022 Length of Stay: 8 Consulting Service: Medicine team. Reason for Consult: SAMANTHA HISTORY: 62 yr old man with cognitive impairment, Hx of CVA with L-sided weakness, dysphagia, HTN, L AKA (s/t PAD) who is admitted with hypoxic respiratory failure s.t CAP. Initiated on empiric broad spectrumparenteral coverage (Vanc and zosyn). His BMI is ~ 17 with a baseline S.Cr 0.5 - 0.7. No to have a decline in renal function (non-oliguric) since 06-30-22. No hemodynamic instability noted throughout hospitalization. Received iodinated contrast (06-28-22). There is one supra therapeutic vancomycin trough 25.2 (06-30-22). He is non-oliguric. Non- conversant. UA with +1 proteinuria, 6-10 pyuria. FeNa 2.1% Interval events: Intubated and had bronch for mucus plugging. Intubated and sedated this AM. Resting comfortably without agitation. Hospital Medications: ??? 0.9% NaCl 3 mL Intracatheter q8h ??? acetylcysteine 3 mL Inhalation q6h ??? albuterol-ipratropium 3 mL Inhalation q6h ??? artificial tears Each Eye q8h ??? aspirin 81 mg Enteral Tube QDAY ??? atorvastatin 40 mg Enteral Tube QDAY ??? chlorhexidine 15 mL Mouth/Throat BID ??? cloBAZam 20 mg Enteral Tube BID ??? divalproex sprinkle 500 mg Enteral Tube Every 6 Hours (,09,15,21) ??? fluticasone propionate 1 spray Each Nostril QDAY ??? folic acid 1 mg Enteral Tube QDAY ??? heparin 5,000 Units Subcutaneous TID ??? lacosamide 200 mg Enteral Tube BID ??? levETIRAcetam 2,000 mg Enteral Tube BID ??? pantoprazole 40 mg Intravenous QDAY ??? polyethylene glycol 3350 17 g Enteral Tube QDAY ??? potassium chloride 40 mEq Intravenous Once ??? sodium chloride (Inhalant) 4 mL Inhalation BID ??? tamsulosin 0.4 mg Oral QDAY ??? thiamine 100 mg Enteral Tube QDAY dextrose, , Last Rate: 100 mL/hr at 07/06/22 0700 propofol, 0-50 mcg/kg/min, Last Rate: 20 mcg/kg/min (07/06/22 0758) PRN Meds: ??? SALINE LOCK, INSERT AND MAINTAIN AND 0.9% NaCl AND 0.9% NaCl ??? acetaminophen ??? artificial tears ??? bisacodyl OBJECTIVE: Vitals: 07/06/22 0400 07/06/22 0449 07/06/22 0500 07/06/22 0600 BP: 111/73 133/87 126/81 Pulse: 92 92 87 92 Resp: 15 15 15 13 Temp: 99 ??F (37.2 ??C) SpO2: 100% 100% 100% Weight: 57.5 kg (126 lb 12.2 oz) Height: Estimated body mass index is 16.72 kg/m?? as calculated from the following: Height as of this encounter: 1.854 m (6' 1 ). Weight as of this encounter: 57.5 kg (126 lb 12.2 oz). Intake/Output Summary (Last 24 hours) at 07/06/2022 0844 Last data filed at 07/06/2022 0813 Gross per 24 hour Intake 3109.45 ml Output 1225 ml Net 1884.45 ml Physical Exam: Physical Exam Constitutional: Appearance: Intubated and sedated. No acute distress. HENT: Head: Normocephalic. Mouth/Throat: Mouth: Mucous membranes are dry Cardiovascular: Rate and Rhythm: Normal rate and regular rhythm. Pulses: Normal pulses. Heart sounds: Normal heart sounds. No murmur heard. Pulmonary: Breath sounds: Poor air movement, mechanical breath sounds Abdominal: General: Abdomen is flat. Palpations: Abdomen is soft. Comments: G- tube. Musculoskeletal: Cervical back: Neck supple. Skin: General: Skin is warm and dry. Neurological: Comments: Intubated and sedated. LABS: CBC: Recent Labs Component Name 07/06/2234807/05/2222507/04/22 014 WBC 6.5 5.4 5.9 HGB 9.7* 8.9* 10.1* HCT 29.3* 27.3* 30.9* MCV 92.7 94.8 94.2 BMP: Recent Labs Component Name 07/06/2234807/05/22203807/05/22225 NA 150* 151* 151* CL 115* 113* 115* CO2 21* 26 25 BUN 34* 37* 40* CREATININE 2.76* 3.08* 3.43* Recent Labs Component Name 07/06/2234807/05/22203807/05/2222507/04/22 014 CALCIUM 7.6* 9.1 9.0 9.4 PHOS 2.9 - 5.0 5.9* LFT: Recent Labs Component Name 06/30/22 1039 06/27/22221406/21/22 1926 03/03/18 1745 01/30/18 1255 11/28/17 0455 10/14/17 1349 PROT 6.2 8.3 8.3 - 6.9 - 7.0 ALB 2.2* 3.4 3.2* - 3.7 - 3.9 ALKPHOS 65 95 88 - 75 - 86 AST 13 19 19 - 14 - 18 ALT 5 6 10 - 10 - 9 TBILI 0.3 0.3 0.3 - 0.4 - 0.6 DBILI 0.2 - - - 0.2 - 0.2 IBILI 0.1 - - - 0.2 - 0.4 - = values in this interval not displayed. Recent Labs Component Name 06/27/222214 LIPASE 18 Recent Labs Component Name 07/04/22 0145 TSH 1.955 Coagulation: Recent Labs Component Name 06/27/22221405/11/22 1309 03/11/22 1059 PT 12.8 13.5 15.4* INR 1.0 1.0 1.2 Cardiac markers: Recent Labs Component Name 07/01/22 1634 06/28/22 0141 06/27/22 2215 05/30/22 1750 03/08/22 1455 12/31/21 0412 02/25/21 1134 05/15/19 0911 CKTOTAL 42 - - - - 77 - 63 TROPONINI - <0.010 <0.010 <0.010 - - - <0.010 - = values in this interval not displayed. ABG: Recent Labs Component Name 07/06/22 0518 07/05/22 2242 07/03/22 1739 [id number] 24 IMAGING: No results found. ASSESSMENT: 62 yr old man with cognitive impairment, Hx of CVA with L-sided weakness, dysphagia, HTN, L AKA (s/t PAD) who is admitted with hypoxic respiratory failure 2/2 CAP Initiated on empiric broad spectrum parenteral coverage (Vanc and zosyn). His BMI is ~ 17 with a baseline S.Cr 0.5 - 0.7. No to have a decline in renal function (non-oliguric) since 06-30-22. No hemodynamic instability noted throughout hospitalization. Received iodinated contrast (06-28-22). There is one supra therapeutic vancomycin trough 25.2 (06-30-22). He is non-oliguric. Non- conversant. UA with +1 proteinuria, 6-10 pyuria. FeNa 2.1 %. SAMANTHA with Cr to 3.55, continues to slowly improve. Cr down to 2.76 today. Likely multifactorial etiology (contrast vs vanc toxicity). Remains hypernatremic. Will perform manual urine microscopy when able Agree with D5W @100ml/hr for hypernatremia, could also consider increasing FWF to 300 q4h for ~2L FWD. CTM renal panel. Strict I and Os. Pt d/w Dr Matt Fisher. Ivy Tim MD PGY-3 07/05/2022 8:44 AM MOTIVE PAINT TECHNICIAN Associated attestation - Luiz Henderson MD - 07/06/2022 4:35 PM AUTOMOTIVE PAINT TECHNICIAN I have seen and examined the patient with house-staff on rounds at 11:30 AM. I agree with the house-staff note with the additions/modificiations listed below. Patient intubated today AM. SAMANTHA continues slowly improving, creatinine 2.73 from a max 3.55. Hypernatremia, Na 150. - Agree with D5W for hypernatremia. Consider increase in free water flushes - Suggest to follow Na level closely. Nephrology will sign off. Thank you for involving us in the management of your patient * Meggan Peace RCP - 07/05/2022 10:41 PM CST RT at bedside for post intubation bronchoscopy.Patient tolerated procedure well. MOTIVE PAINT TECHNICIAN * Meggan Peace RCP - 07/05/2022 10:38 PM CST Patient Intubated with an 8.0 ET tube. Tube visualized throught chords, fogging in tube, CO2 detector, bilateral breath sounds. Patient tolerated procedure well with out complication. MOTIVE PAINT TECHNICIAN * Myrna Hammond - 07/05/2022 12:21 PM CST Chaplains attended a family meeting along with medical team members, patient's RN, and patient's sisters, Jaleesa (oldest sister) and Adriane (POA). Adriane explained to the medical team patient's history and recent baseline of communicating well. Medical team explained patient's current situation and opt ions going forward, depending upon patient's condition and any changes in his status. Adriane stated that she wanted the team to treat patient as they would their own family member. Adriane was explicit in saying that she wanted patient to stay full code. Adriane and Jaleesa expressed appreciation for this facility, the medical teams and the RN's that are working with their brother. Pastoral care remains available continuously. Myrna Hammond 07/05/2022 12:27 PM MOTIVE PAINT TECHNICIAN * Akbar Patten MD - 07/05/2022 8:55 AM CST MICU PROGRESS NOTE Name: Mojgan Tabor Admission date: 06/27/2022 Hospital Day: 7 SUBJECTIVE BRIEF HOSPITAL COURSE: Mojgan Tabor is a 62 year old male w/ PMHx significant for CVA with residual L sided defects, history of seizure disorder, dementia, dysphagia with recurrent aspiration (PEG-dependent), Zenker diverticulum, hypertension, BPH, PAD s/p L AKA d/t non-healing foot wound (02/2022), who initially presented [facility] on 06/28 with complaints of hypoxia. The patient is a shelter resident at [facility]. Imaging in ED showed likely aspiration pneumonia, for which he was started on antibiotics. ENT was consulted for possible surgical intervention with his Zenker diverticulum. On 07/02 the patient was noted to have R hemithorax opacification with mediastinal shift. Pulmonary Medicine was consulted on 07/03, and due to recurring events of mucus plugging with desaturations, the patient was transferred to the ICU for further evaluation and management. Upon arrival, patient underwent awake bronchoscopy with suction of mucus plugs and had initial radiographic improvement and also in oxygenation. INTERVAL HISTORY: On 2-3 LPM in am with diminished breath sounds on R Chest xray showed atelectasis of R lung with haziness of LLL which may s/o segmental atelactasis ROS ROS could not be done as patient is AO X 0 OBJECTIVE Temp: [98 ??F (36.7 ??C)-99.7 ??F (37.6 ??C)] 98 ??F (36.7 ??C) Pulse: [86-117] 108 Resp: [10-36] 36 BP: (113-173)/(67-133) 136/80 O2 %: [50 %] 50 % I/O last 2 completed shifts: In: 2811.7 [I.V.:2561.7] Out: 1350 [Urine:1350] Physical Exam GEN No acute distress HEENT Does not track with eyes CHEST No chest wall tenderness CARDIO RRR, no M/R/G, +S1/S2 RESP Diminished right lung breath sounds, coarse left ABD Soft, NT, ND, +BS. EXT L BKA NEURO Non focal; does not follow commands SKIN Warm, dry, no rashes/lesions noted PSYCH Appropriate mood and affect DATA Recent Labs Component Name 07/05/2222507/04/225 07/03/22 0405 WBC 5.4 5.9 6.9 RBC 2.88* 3.28* 3.10* HGB 8.9* 10.1* 9.6* HCT 27.3* 30.9* 29.6* MCV 94.8 94.2 95.5 MCHC 32.6 32.7 32.4 PLTCOUNT 143* 141* 120* NEUTPCT 56.9 64.0 59.2 NEUTABS 3.10 3.77 4.06 Recent Labs Component Name 07/05/2222507/04/2214407/03/22 0405 07/01/22 1634 06/30/22 1039 06/29/22 0709 06/27/22 2215 06/21/22 1926 POTASSIUM 4.1 4.6* 4.7* - 4.0 - 4.4 4.5 CO2 25 23 27 - 24 - 26 29 BUN 40* 38* 32* - 7 - 17 14 CREATININE 3.43* 3.55* 3.16* - 0.58* - 0.78 0.58* GLUCOSE 83 90 86 - 115 - 98 116* CALCIUM 9.0 9.4 9.1 - 9.5 - 10.3* 10.7* ALT - - - - 5 - 6 10 ALKPHOS - - - - 65 - 95 88 AST - - - - 13 - 19 19 EGFR 20* 19* 22* - >90 - >90 >90 - = values in this interval not displayed. ASSESSMENT Epilepsy, unspecified, not intractable, without status epilepticus (CMS/HCC) POA: Yes Muscle weakness (generalized) POA: Yes Hemiplegia and 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- dominant side (CMS/HCC) POA: Yes Acute encephalopathy POA: Yes Sepsis without acute organ dysfunction (CMS/HCC) POA: Yes PAD (peripheral artery disease) (CMS/HCC) POA: Yes History of stroke POA: Yes Protein-calorie malnutrition, unspecified severity (CMS/HCC) POA: Yes Aspiration into airway POA: Yes Leukocytosis, unspecified type POA: Yes Tachycardia POA: Yes Hypoxia POA: Yes Acute respiratory failure with hypoxia (CMS/[facility]) POA: Yes Pneumonia of right lower lobe due to infectious organism POA: Yes Atelectasis, right POA: Yes Contrast-induced nephropathy POA: Yes Zenker diverticula POA: Yes Hypernatremia POA: No PLAN Neurological - Depakote 500 mg q6h - clobazam 20 mg bid - Keppra 2g bid - Vimpat 200 mg BID - continue ASA - Lipitor 40 mg daily - Thiamine 100 mg daily - Folic acid 1 mg daily - Aspiration precautions - Seizure precautions ?? Cardiovascular - continue ASA - wound care - Keep MAP >65 ?? Pulmonary - Aggressive pulmonary toilet with following ?? Mucomist 10 mg Q6H ?? Hypertonic saline 7% twice daily ?? Duo-nebs every 6 hours ?? Vest therapy Q6H - Start High flow nasal cannula for supplemental oxygen - titrate FiO2 to maintain SpO2>92% - completed 7 days of antibiotics - No current plan for OR for zenker's diverticulum?? GI - Protonix 40 mg daily - Miralax 17 gm daily Renal - Give 200 cc/hr D5 for two hours followed by 75 cc/hr for hypernatremia ??- measure BMP every 8 hours - Free water flushes 50 cc q4h Endocrine Maintain Euglycemia 140-180 mg/dL ?? Infectious Disease Completed Zosyn for 7 days ?? Hematology/Oncology - Hgb threshold for transfusion: <7 in absence of active bleeding - platelet count threshold for transfusion: <10 in absence of active bleeding ?? Other No active issues. ?? LDA: Peripheral IV Left Antecubital (Active) Placement Date/Time: 06/27/222139 Existing LDA : EMS Orientation: Left Location: Antecubital IV Catheter Size: 18 Gauge Number of days: 7 Peripheral IV Anterior;Left;Upper Arm (Active) Placement Date/Time: 06/29/222144 Orientation: Anterior;Left;Upper Location: Arm Name/Credentials of person who placed: Rhianna SIMON IV Catheter Size: 20 Gauge Technique: Ultrasound Guidance Number of start attempts: 1 Local Anesthetic Used?: No... Number of days: 5 Enteral - Percutaneous Endoscopic Gastrostomy Abdomen;Midline;Upper (Active) Placement Date/Time: 03/25/221653 Name/Credentials of person who placed: Jolynn Ann MD Type: Percutaneous Endoscopic Gastrostomy Tube Location: Abdomen;Midline;Upper Size (FR): 24 Procedure Tolerance: Well Number of days: 102 Other Wound Anterior;Lower;Proximal;Right Arm (Active) Date/Time: 06/29/221999 Orientation: Anterior;Lower;Proximal;Right Location: Arm Number of days: 5 Other Wound Left Ear (Active) Date/Time: 07/03/221839 Orientation: Left Location: Ear Number of days: 1 Other Wound Right Ear (Active) Date/Time: 07/03/221839 Orientation: Right Location: Ear Number of days: 1 Condom Urinary Catheter 07/03/221899 (Active) Placement Date/Time: 07/03/221899 Size: Medium Procedure Tolerance: Well Number of days: 1 DVT Prophylaxis: Heparin subq and SCD GI Prophylaxis: protonix Diet: NPO; Tube feeding 20 cc/hr Activity: Bedrest Code status: Full Code Disposition: MICU Akbar Patten MD (PGY6-Fellow) Pulmonary Disease and Critical Care Medicine Division of Pulmonary, Critical Care, & Sleep Medicine [facility] 07/05/2022 4:16 PM MOTIVE PAINT TECHNICIAN Associated attestation - Tolu Leach MD - 07/05/2022 8:53 PM AUTOMOTIVE PAINT TECHNICIAN MICU Attending Note: I have seen and examined the patient with the house staff on MICU team. I have verified all detailsof the house staff's note and agree with the documentation except for the changes I have documentedbelow: Interval History: Cont to have R lung collapse. Mucomyst and hypertonic nebs added. UOP remains poor. Exam: Vitals: 07/05/22 1912 07/05/22 1930 07/05/22199907/05/222025 BP: (!) 181/100 (!) 178/107 (!) 185/115 Pulse: (!) 114 (!) 113 (!) 113 (!) 117 Resp: 14 17 17 Temp: SpO2: 99% 100% 100% Weight: Height: Neuro: awake not following commands. CVS: S1S2+, RRR RS: absent breath sounds on the right side in the bases and diminished in upper lobes Abd: soft NT ND BS+ Ext: L BKA Labs: CBC: Recent Labs Component Name 07/05/22 02207/04/2214407/03/22 0405 WBC 5.4 5.9 6.9 HGB 8.9* 10.1* 9.6* HCT 27.3* 30.9* 29.6* BMP: Recent Labs Component Name 07/05/2222507/04/2214407/03/2240406/21/22 19206/15/22 0603 NA 151* 148* 144 - 143 CL 115* 112* 110* - 103 CO2 25 23 27 - 27 BUN 40* 38* 32* - 12 CREATININE 3.43* 3.55* 3.16* - 0.67* CALCIUM 9.0 9.4 9.1 - 9.9 PHOS 5.0 5.9* - - 3.0 - = values in this interval not displayed. Hepatic: Recent Labs Component Name 06/30/22 1039 06/27/22221406/21/22 1926 ALT 5 6 10 AST 13 19 19 TBILI 0.3 0.3 0.3 PROT 6.2 8.3 8.3 ALB 2.2* 3.4 3.2* ALKPHOS 65 95 88 Coagulation: Recent Labs Component Name 06/27/22221405/11/22 1309 03/11/22 1059 PT 12.8 13.5 15.4* INR 1.0 1.0 1.2 Cardiac Markers: Recent Labs Component Name 06/28/22 01406/27/22221405/30/22 1750 TROPONINI <0.010 <0.010 <0.010 ABGs: No results for input(s): PHART, PO2ART, AQU4XUN, BEART in the last 73018 hours. 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 (CMS/HCC) POA: Yes Acute encephalopathy POA: Yes Sepsis without acute organ dysfunction (CMS/HCC) POA: Yes PAD (peripheral artery disease) (CMS/HCC) POA: Yes History of stroke POA: Yes Protein-calorie malnutrition, unspecified severity (CMS/HCC) POA: Yes Aspiration into airway POA: Yes Leukocytosis, unspecified type POA: Yes Tachycardia POA: Yes Hypoxia POA: Yes Acute respiratory failure with hypoxia (CMS/HCC) POA: Yes Pneumonia of right lower lobe due to infectious organism POA: Yes Atelectasis, right POA: Yes Contrast-induced nephropathy POA: Yes Zenker diverticula POA: Yes Hypernatremia POA: No Plan: Has complex AED regimen. Will need neuro to reconsult tomorrow. His MS could be altered from the meds. Metabolic causes of uremia also possible. Drug pharmacokinetics now may be affected with his creatinine clearance decreased. Check depakote and clobazam levels. Cont ASA Resume low dose tube feeds Aggressive pulmonary toileting with vest. Add mucomyst and hypertonic saline nebs. Repeat CXR in the evening and if no improvement will need intubation. Hypernatremia multifactorial and in conjunction with SAMANTHA. SAMANTHA most likely related to contrast injury. UOP decent. Will wait for creat to plateau. Will start D5W drip Cont tube feeds at 20 ml/hr I discussed with the pateints sisters at length about the clinical condition and the plan of care in the presence of the patients nurse, my team and pastoral care. They confirmed he is full code and are ok with intubation if need be. Pt. is critically ill with vital organ impairment or failure Time involved in the performance of separately billable procedures, teaching, reviewing education material was not counted towards critical care time. Patient is unable or incompetent to participate in giving a history and/or making decisions and discussion is necessary for determining treatment decisions. Overall critical care time provided: 55 Mins. Date of Service: 07/05/2022 Critical Care Attending: Dr. Tolu Leach MD, MPH * Mandi Jiménez RN - 07/05/2022 8:54 AM CST Case Management Progress Note Anticipated level of care at discharge: Penitentiary - Medicaid This patient is new to my workload today. MICU [address] blade quintanilla Trach this week. Pallitive care discussion requested for GOC and to support patient wishes. Anticipated Discharge Date: 07/05/22 Transportation at Discharge: Ambulance Transportation to MD: Ambulance Equipment at Home: Equipment at Home: Facility Equipment Additional DME needed: unknown Pharmacy benefit: Yes Comments: Mandi Jiménez Rn BSN [facility] [employer] LibrarianField Rep: [phone] 07/05/2022 MOTIVE PAINT TECHNICIAN * Ivy Tim MD - 07/05/2022 8:32 AM CST [facility] Department of Nephrology Date of Admission: 06/27/2022 Length of Stay: 7 Consulting Service: Medicine team. Reason for Consult: SAMANTHA HISTORY: 62 yr old man with cognitive impairment, Hx of CVA with L-sided weakness, dysphagia, HTN, L AKA (s/t PAD) who is admitted with hypoxic respiratory failure s.t CAP. Initiated on empiric broad spectrumparenteral coverage (Vanc and zosyn). His BMI is ~ 17 with a baseline S.Cr 0.5 - 0.7. No to have a decline in renal function (non-oliguric) since 06-30-22. No hemodynamic instability noted throughout hospitalization. Received iodinated contrast (06-28-22). There is one supra therapeutic vancomycin trough 25.2 (06-30-22). He is non-oliguric. Non- conversant. UA with +1 proteinuria, 6-10 pyuria. FeNa 2.1% Interval events: Rapid for desaturations to 70s on 6L NC with somnolence. Transferred to ICU. Bronch yesterday for Rmucous plugging. This AM patient resting in bed alert but non-conversant. No apparent distress withpercussive vest on. Cr improved slightly this AM however hypernatremia worsened. Hospital Medications: ??? 0.9% NaCl 3 mL Intracatheter q8h ??? albuterol-ipratropium 3 mL Inhalation q4h WA ??? aspirin 81 mg Enteral Tube QDAY ??? atorvastatin 40 mg Enteral Tube QDAY ??? cloBAZam 20 mg Enteral Tube BID ??? divalproex sprinkle 500 mg Enteral Tube Every 6 Hours (03,09,15,21) ??? fluticasone propionate 1 spray Each Nostril QDAY ??? folic acid 1 mg Enteral Tube QDAY ??? heparin 5,000 Units Subcutaneous TID ??? lacosamide 200 mg Enteral Tube BID ??? levETIRAcetam 2,000 mg Enteral Tube BID ??? pantoprazole 40 mg Intravenous QDAY ??? polyethylene glycol 3350 17 g Enteral Tube QDAY ??? tamsulosin 0.4 mg Oral QDAY ??? thiamine 100 mg Enteral Tube QDAY ??? vancomycin (VANCOCIN) IV dose per pharmacy Does not apply DIRECTED lactated ringers, , Last Rate: 75 mL/hr at 07/05/22 0036 PRN Meds: ??? SALINE LOCK, INSERT AND MAINTAIN AND 0.9% NaCl AND 0.9% NaCl ??? acetaminophen ??? artificial tears ??? bisacodyl OBJECTIVE: Vitals: 07/05/22 0545 07/05/22 0600 07/05/22 0629 07/05/22 0700 BP: 163/81 151/85 Pulse: 86 98 99 97 Resp: 12 17 15 17 Temp: SpO2: 99% 95% 96% 97% Weight: Height: Estimated body mass index is 17.16 kg/m?? as calculated from the following: Height as of this encounter: 1.854 m (6' 1 ). Weight as of this encounter: 59 kg (130 lb 1.1 oz). Intake/Output Summary (Last 24 hours) at 07/05/2022 0832 Last data filed at 07/05/2022 0621 Gross per 24 hour Intake 2811.7 ml Output 1350 ml Net 1461.7 ml Physical Exam: Physical Exam Constitutional: Appearance: He is ill-appearing. HENT: Head: Normocephalic. Mouth/Throat: Mouth: Mucous membranes are dry. Cardiovascular: Rate and Rhythm: Normal rate and regular rhythm. Pulses: Normal pulses. Heart sounds: Normal heart sounds. No murmur heard. Pulmonary: Breath sounds: Wheezing and rhonchi present. Abdominal: General: Abdomen is flat. Palpations: Abdomen is soft. Comments: G- tube. Musculoskeletal: Cervical back: Neck supple. Comments: LUE edema. Skin: General: Skin is warm and dry. Neurological: Comments: Somnolent. LABS: CBC: Recent Labs Component Name 07/05/2222507/04/225 07/03/22 0405 WBC 5.4 5.9 6.9 HGB 8.9* 10.1* 9.6* HCT 27.3* 30.9* 29.6* MCV 94.8 94.2 95.5 BMP: Recent Labs Component Name 07/05/2222507/04/22 0145 07/03/22 0405 NA 151* 148* 144 CL 115* 112* 110* CO2 BUN 40* 38* 32* CREATININE 3.43* 3.55* 3.16* Recent Labs Component Name 07/05/2222507/04/22 0145 07/03/22 0405 06/21/22 19206/15/22 0603 CALCIUM 9.0 9.4 9.1 - 9.9 PHOS 5.0 5.9* - - 3.0 - = values in this interval not displayed. LFT: Recent Labs Component Name 06/30/22 1039 06/27/22 22106/21/22 19203/03/18 1745 01/30/18 1255 11/28/17 0455 10/14/17 1349 PROT 6.2 8.3 8.3 - 6.9 - 7.0 ALB 2.2* 3.4 3.2* - 3.7 - 3.9 ALKPHOS 65 95 88 - 75 - 86 AST 13 19 19 - 14 - 18 ALT 5 6 10 - 10 - 9 TBILI 0.3 0.3 0.3 - 0.4 - 0.6 DBILI 0.2 - - - 0.2 - 0.2 IBILI 0.1 - - - 0.2 - 0.4 - = values in this interval not displayed. Recent Labs Component Name 06/27/222214 LIPASE 18 Recent Labs Component Name 07/04/22 0145 TSH 1.955 Coagulation: Recent Labs Component Name 06/27/22 2215 05/11/22 1309 03/11/22 1059 PT 12.8 13.5 15.4* INR 1.0 1.0 1.2 Cardiac markers: Recent Labs Component Name 07/01/22 1634 06/28/22 0141 06/27/22 2215 05/30/22 1750 03/08/22 1455 12/31/21 0412 02/25/21 1134 05/15/19 0911 CKTOTAL 42 - - - - 77 - 63 TROPONINI - <0.010 <0.010 <0.010 - - - <0.010 - = values in this interval not displayed. ABG: Recent Labs Component Name 07/03/22 1739 03/11/22 1059 [id number] 27 30 IMAGING: No results found. ASSESSMENT: 62 yr old man with cognitive impairment, Hx of CVA with L-sided weakness, dysphagia, HTN, L AKA (s/t PAD) who is admitted with hypoxic respiratory failure 2/2 CAP Initiated on empiric broad spectrum parenteral coverage (Vanc and zosyn). His BMI is ~ 17 with a baseline S.Cr 0.5 - 0.7. No to have a decline in renal function (non-oliguric) since 06-30-22. No hemodynamic instability noted throughout hospitalization. Received iodinated contrast (06-28-22). There is one supra therapeutic vancomycin trough 25.2 (06-30-22). He is non-oliguric. Non- conversant. UA with +1 proteinuria, 6-10 pyuria. FeNa 2.1 %. SAMANTHA with Cr to 3.55, improved slightly today at 3.43, although actual renal function may be worse than suggested by Cr given sarcopenia and L AKA. Likely multifactorial etiology (contrast vs vanc toxicity). Consider renal US Will perform manual urine microscopy when able Agree with D5W @75ml/hr for hypernatremia CTM renal panel. Strict I and Os. Pt d/w Dr Matt Fisher. Ivy Tim MD PGY-3 07/05/2022 8:32 AM MOTIVE PAINT TECHNICIAN Associated attestation - Luiz Henderson MD - 07/05/2022 8:29 PM AUTOMOTIVE PAINT TECHNICIAN I have seen and examined the patient with house-staff on rounds at 11;25 AM. I agree with the house-staff note with the additions/modificiations listed below. SAMANTHA, non oliguric. Good urine output; Creatinine slightly improved. Electrolyte status: Hypernatremia, 151, K 4.1, CO2 25. - Agree to continue 1/2 NS 75 ml/hr. * Rosa Mcfarland PharmD - 07/04/2022 2:58 PM CST Vancomycin Per Pharmacy - Discontinuation Notification Due to Change in Level of Care This patient was transferred to the ICU, therefore vancomycin will no longer be managed by pharmacy Subjective: Mojgan Tabor is a 62 year old male receiving vancomycin dosed per pharmacy. Indication for anti-infective therapy: documented infection Site of anti-infective therapy: Lower respiratory. Goal trough 15-20 mcg/mL. Objective: Vancomycin day of therapy 7 Current regimen: vancomycin on hold for supratherapeutic levels (vancomycin 1000mg q8h stopped 07/01/22 after five doses) Vancomycin Administrations from JUL (last 72 hours) Date/Time Action Medication Dose Rate 07/01/22 1652 $ New Bag/Syringe vancomycin (Vancocin) 1,000 mg in 0.9% NaCl IV 250 mL IVPB 1,000 mg 250 mL/hr Recent Labs Component Name 07/04/22 0145 07/03/22 0405 07/02/22 0531 07/01/22 1634 06/30/22 1039 06/30/22 0707 VANCORNDM 22.0 26.1 32.1 - - - VANCTROUGH - - - 22.7* 25.2* 5.3* Assessment/Recommendation: Transferred to ICU. Level today still above 20; would continue holding vanc. If feel vanc is still indicated past today then check random level with 2/6 AM labs. Please contact the [facility] pharmacy department ([phone]) with any questions. Rosa Mcfarland, Savi 07/04/2022 2:54 PM Resources: Vancomycin Protocol MOTIVE PAINT TECHNICIAN * Demetrio Cary RCP - 07/04/2022 2:17 PM CST Assisted with bedside bronchoscopy. [place] protocol checklist completed prior to procedure with attending physician present. Pt placed on NRB mask 15L.Oral bite block in place. Other settings/alarms adjusted appropriately for procedure. SpO2 alarm set to audible. Scope lubricated with silicon spray per orders . Lidocaine instilled via scope to brionna and mainstem bronchi per bronch Team. All lung segments/airways inspected.Suction was also done and flushed with sterile saline, moderate secrection were removed.Thin white/ red/ pinkish suctioned from the Right lobe Patient tolerated procedure well. Settings & alarms returned to previous. Disposable bronchoscope used? Yes MOTIVE PAINT TECHNICIAN * Aaron Elder MD - 07/04/2022 9:17 AM CST Otolaryngology Progress Note 07/04/2022 SUBJECTIVE: Patient with right hemithorax opacification. Discussed with primary medicine team possibility of scheduling for surgery later this week given continued aspiration. Patient transferred to ICU after increasing O2 requirements. Per chart review, discussion was had with family regarding measures such as bronchoscopy and elective intubation which were ultimately decided against VITALS: Temp (30hrs) Max:98.1 ??F (36.7 ??C) Vitals: 07/04/22 0600 07/04/22 0700 07/04/22 0800 07/04/22 0835 BP: 163/94 135/82 152/95 Pulse: 98 101 99 Resp: 16 16 20 Temp: 97.8 ??F (36.6 ??C) SpO2: 99% 100% 98% Weight: Height: Intake/Output Summary (Last 24 hours) at 07/04/2022 0917 Last data filed at 07/04/2022 0600 Gross per 24 hour Intake 522.9 ml Output 1900 ml Net -1377.1 ml MEDICATIONS FOR CURRENT ENCOUNTER: ?? SCHEDULED MEDICATIONS: ?? 0.9% NaCl injection 3 mL, Intracatheter, q8h ?? albuterol-ipratropium (Duo-Neb) nebulizer solution 3 mL, Inhalation, q4h WA ?? aspirin chew tablet 81 mg, Enteral Tube, QDAY ?? atorvastatin (Lipitor) tablet 40 mg, Enteral Tube, QDAY ?? cloBAZam (Onfi) tablet 20 mg, Enteral Tube, BID ?? divalproex sprinkle (Depakote Sprinkle) capsule 500 mg, Enteral Tube, Every 6 Hours (03,09,15,21) ?? fluticasone propionate (Flonase) nasal spray 1 spray, Each Nostril, QDAY ?? folic acid (Folvite) tablet 1 mg, Enteral Tube, QDAY ?? heparin injection 5,000 Units, Subcutaneous, TID ?? lacosamide (Vimpat) tablet 200 mg, Enteral Tube, BID ?? levETIRAcetam (Keppra) tablet 2,000 mg, Enteral Tube, BID ?? piperacillin - tazobactam (Zosyn) 3.375 g in 0.9% NaCl IV 55 mL IVPB, Intravenous, q8h ?? polyethylene glycol 3350 (Miralax) packet 17 g, Enteral Tube, QDAY ?? tamsulosin (Flomax) capsule 0.4 mg, Oral, QDAY ?? thiamine (Vitamin B-1) tablet 100 mg, Enteral Tube, QDAY ?? vancomycin (Vancocin) IV dose per pharmacy, Does not apply, DIRECTED ?? CONTINUOUS MEDICATIONS: ?? lactated ringers infusion, Intravenous, Continuous ?? PRN MEDICATIONS: ?? 0.9% NaCl injection 1-10 mL, Intracatheter, PRN ?? acetaminophen (Tylenol) tablet 500 mg, Enteral Tube, q4h PRN ?? artificial tears ophthalmic solution 1 drop, Each Eye, TID PRN ?? bisacodyl (Dulcolax) suppository 10 mg, Rectal, QDAY PRN PHYSICAL EXAM: Gen: Disoriented, not verbally responsive HEENT: Neck soft without palpable masses. Pulm: Non-labored breathing on NC. Right lung sounds diminished on ausculation Neuro: CN II-XII grossly intact. IMAGING CXR reviewed ASSESSMENT: Mojgan Tabor is a 62 year old male with a PMH significant for R. Occipital stroke (2015), head injury, seizures, Alzheimer's, Right BKA, refractory epilepsy, dysphasia w/PEG tube placement on 03/25/22 who is seen in consultation for Zenker's diverticulum. Recently seen outpatient with plans for elective surgery for his known Zenker's diverticulum, however he is again admitted with aspiration PNA. PLAN: - Patient respiratory status acutely worsened overnight, will wait for patient to improve clinically prior to any surgery - Surgery will require patient to be intubated which carry same risks as were previously discussed by ICU team with family regarding prolonged ventilation - Please call ENT with any questions or concerns. Aaron Elder MD Otolaryngology - Head and Neck Surgery 07/04/2022 MOTIVE PAINT TECHNICIAN * Jaylan Stockton MD - 07/04/2022 7:03 AM CST MICU PROGRESS NOTE Name: Mojgan Tabor Admission date: 06/27/2022 Hospital Day: 6 SUBJECTIVE BRIEF HOSPITAL COURSE: Mojgan Tabor is a 62 year old male w/ PMHx significant for CVA with residual L sided defects, history of seizure disorder, dementia, dysphagia with recurrent aspiration (PEG-dependent), Zenker diverticulum, hypertension, BPH, PAD s/p L AKA d/t non-healing foot wound (02/2022), who initially presented to [facility] ED on 06/28 with complaints of hypoxia. The patient is a shelter resident at [facility]. Imaging in ED showed likely aspiration pneumonia, for which he was started on antibiotics. ENT was consulted for possible surgical intervention with his Zenker diverticulum. On 07/02 the patient was noted to have R hemithorax opacification with mediastinal shift. Pulmonary Medicine was consulted on 07/03, and due to recurring events of mucus plugging with desaturations, the patient was transferred to the ICU for further evaluation and management. ?? Initial ICU assessment, unable to produce a strong cough on command. On NRB with oxygen saturation 100%, non-tachypneic, no accessory muscle use. INTERVAL HISTORY: No acute events overnight. Brother Jim at bedside this AM, Sister on phone, updated. Temp (30hrs) Max:98.1 ??F (36.7 ??C) Hemodynamically stable. O2 needs down from NRB to nasal cannula OBJECTIVE Temp: [97.6 ??F (36.4 ??C)-98.1 ??F (36.7 ??C)] 97.8 ??F (36.6 ??C) Pulse: [92-113] 99 Resp: [13-31] 20 BP: (135-200)/(77-113) 152/95 O2 %: [90 %-100 %] 100 % I/O last 2 completed shifts: In: 522.9 [I.V.:322.9] Out: 1900 [Urine:1900] Physical Exam GEN No acute distress HEENT Does not track with eyes CHEST No chest wall tenderness CARDIO RRR, no M/R/G, +S1/S2 RESP Diminished right lung breath sounds, coarse left ABD Soft, NT, ND, +BS. EXT L BKA NEURO No focal deficits noted, no verbal, does not follow complex commands SKIN Warm, dry, no rashes/lesions noted PSYCH Appropriate mood and affect DATA I personally reviewed available imaging and labwork. ASSESSMENT Epilepsy, unspecified, not intractable, without status epilepticus (CMS/HCC) POA: Yes Muscle weakness (generalized) POA: Yes Hemiplegia and 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- dominant side (CMS/HCC) POA: Yes Sepsis without acute organ dysfunction (CMS/HCC) POA: Yes PAD (peripheral artery disease) (CMS/HCC) POA: Yes History of stroke POA: Yes Protein-calorie malnutrition, unspecified severity (CMS/HCC) POA: Yes Leukocytosis, unspecified type POA: Yes Tachycardia POA: Yes Hypoxia POA: Yes Acute respiratory failure with hypoxia (CMS/HCC) POA: Yes Pneumonia of right lower lobe due to infectious organism POA: Yes PLAN Neurological #. Acute encephalopathy - seizures v delirium v metabolic v vascular - Plan------ - continue antibiotics at this time - correct underlying electrolyte abnormalities - continue thiamine 100 mg - continue folate 1g daily - avoid oversedating medications - CAM-ICU delirium screening # Hx of Refractory seizures - onset at age of 31; two types, 1-Brief staring events, 2-gen convulsive - Follows with u Neurology ?? given encephalopathy can not rule out non-convulsive status ?? continue Depakote 500 mg q6h ?? continue clobazam 20 mg bid ?? continue Vimpat 200 mg bid ?? continue Keppra 2g bid ?? #. History of Ischemic R Occipital CVA with residual L hemiplegia - Plan------ - continue ASA - continue statin ?? Cardiovascular #. PAD s/p L AKA - Plan------ - continue ASA - wound care to follow ?? Pulmonary #. Acute hypoxic respiratory failure - likely secondary to aspiration and poor cough - significant R sided mucus plugging on CXR 07/02 and 07/03 - likely causing desaturation events on the medical floor - Plan------ - d/w family, prefer to continue conservative measures at this time. No emergent need for intubation - aggressive pulmonary toilet/bronchial hyigene - titrate FiO2 to maintain SpO2>92% - continue antibiotics at this time (EOT 07/05) ?? GI #. History of Zenker diverticulum - ENT following, considering possible surgical intervention - Plan------ - per last note from ENT was planned to go to OR Wednesday 07/05; will discuss ?? Renal #. Acute kidney injury - presumed secondary to ATN/AIN - nephrology following, appreciate recommendations - UA repeat reviewed - Plan------ - Continue mIVF LR @ 75 cc/hr ?? Endocrine Maintain Euglycemia ?? Infectious Disease #. Aspiration pneumonia - with R mucus plugging causing absorption atelectasis - Plan------ - continue current antimicrobials, EOT ~07/05 - family considering therapeutic bronchoscopy #. Urinary tract infection - +LE with WBC's in urine on last U/A - Plan------ - recheck U/A with culture, no Ejnsen in place at this time - continue antibiotics at this time ?? Hematology/Oncology #. Anemia, normocytic #. Thrombocytopenia - Plan------ - Hgb threshold for transfusion: <7 in absence of active bleeding - platelet count threshold for transfusion: <10 in absence of active bleeding ?? Other No active issues. ?? LDA: Peripheral IV Left Antecubital (Active) Placement Date/Time: 06/27/222139 Existing LDA : EMS Orientation: Left Location: Antecubital IV Catheter Size: 18 Gauge Number of days: 6 Peripheral IV Anterior;Left;Upper Arm (Active) Placement Date/Time: 06/29/222144 Orientation: Anterior;Left;Upper Location: Arm Name/Credentials of person who placed: Rhianna SIMON IV Catheter Size: 20 Gauge Technique: Ultrasound Guidance Number of start attempts: 1 Local Anesthetic Used?: No... Number of days: 4 Enteral - Percutaneous Endoscopic Gastrostomy Abdomen;Midline;Upper (Active) Placement Date/Time: 03/25/221653 Name/Credentials of person who placed: Jolynn Ann MD Type: Percutaneous Endoscopic Gastrostomy Tube Location: Abdomen;Midline;Upper Size (FR): 24 Procedure Tolerance: Well Number of days: 100 Other Wound Anterior;Lower;Proximal;Right Arm (Active) Date/Time: 06/29/221999 Orientation: Anterior;Lower;Proximal;Right Location: Arm Number of days: 4 Other Wound Left Ear (Active) Date/Time: 07/03/221839 Orientation: Left Location: Ear Number of days: 0 Other Wound Right Ear (Active) Date/Time: 07/03/221839 Orientation: Right Location: Ear Number of days: 0 Condom Urinary Catheter 07/03/221899 (Active) Placement Date/Time: 07/03/221899 Size: Medium Procedure Tolerance: Well Number of days: 0 DVT Prophylaxis: Heparin subq GI Prophylaxis: protonix Diet: NPO Activity: Bedrest Code status: Full Code Disposition: [facility] Jaylan Jenn Stockton MD Critical Care Fellow MOTIVE PAINT TECHNICIAN Associated attestation - Ramya Witt MD - 07/04/2022 10:30 AM AUTOMOTIVE PAINT TECHNICIAN 07/04/2022 Attending Physician Supervisory Note I personally saw, evaluated and examined the patient and agree with the assessment and plan of the housestaff doctor except noted in my notes. Plan therapeutic bronch awake with face mask. CXR is noted- opacification of right hemithorax is noted. Consent is obtained. ICU monitoring. Ramya Witt MD * Migel Ramirez DO - 07/03/2022 8:30 PM CST Family Notification Documentation Contact made: 07/03/2022 8:30 PM Person(s) contacted: Adriane (sister) and Jaleesa (sister) Method of communication: Phone Duration of discussion: 30 minutes Summary of discussion I spoke with patient's sisters on the phone, Adriane and Jaleesa. They were updated on patient's condition and plan of care. We discussed patient's current condition and reason for ICU transfer. I offered elective intubation and therapeutic bronchoscopy for likely mucus plugging and absorptionatelectasis with the caveat that the patient may require prolonged ventilatory support due to his multiple comorbidities (muscle wasting, low BMI, uncorrected esophageal diverticulum with likely chronic aspiration). If this were the case, he would likely need tracheostomy with indefinite ventilatorsupport (worse case scenario). Alternatively, I offered to continue aggressive pulmonary toilet/bronchial hygiene. At this time, patient has no need for emergent mechanical ventilatory support. After consideration, both Adriane and Jaleesa agree to continue conservative measures at this time. I did give them the 4S charge nurse phone number to contact in case of further questions or to clarify plan of care as needed. All questions were answered to their satisfaction. Migel Ramirez DO, PGY-6 Pulmonary & Critical Care Fellow MOTIVE PAINT TECHNICIAN * Karen Lawrence, RN - 07/03/2022 7:19 PM CST Pt arrived, dried blood to right nare and face, large bm, dried to hair on bottom. Pt face when washed removed skin buildup to reveal pink underneath. Oral care pulled multiple areas of dried skin from mouth and lips. Blisters to right forearm bleeding, dressing in bed with patient. MOTIVE PAINT TECHNICIAN * Artur Mcgraw MD - 07/03/2022 3:12 PM CST Rapid response called for desaturation to 70% on 6L NC O2. Patient is on a non re breather on arrival. Currently no signs of respiratory distress. He is oriented x0 and will open eyes to sternal rub only. There is concerns for future airway protection in the context of Zenker's diverticulum and elevated aspiration risk.. Will transition to Hi Flow NC O2. Adriane Hilliard was updated and confirms Full Code status. She wants the patient to be intubated if that is required. Artur Mcgraw MD Hospitalist MOTIVE PAINT TECHNICIAN * Clover Ceron PharmD - 07/03/2022 9:42 AM CST Vancomycin Per Pharmacy - Follow-Up Note Subjective Mojgan Tabor is a 62 year old male receiving vancomycin dosed per pharmacy. Indication for anti-infective therapy: documented infection Site of anti-infective therapy: Lower respiratory. Goal trough 15-20 mcg/mL. Objective Day of treatment: 6 Current dosing regimen: vancomycin on hold for supratherapeutic levels (vancomycin 1000mg q8h stopped 07/01/22 after five doses) Weight: 59 kg (130 lb) Estimated Creatinine Clearance: 20.5 mL/min (A) (by C-G formula based on SCr of 3.16 mg/dL (H)). Ht Readings from Last 1 Encounters: 06/27/22 6' 1 (1.854 m) Recent Labs Component Name 07/03/22 0405 07/02/22 0531 07/01/22 1634 06/30/22 1039 06/30/22 0707 CREATININE 3.16* 1.99* 1.05 0.58* - WBC 6.9 5.7 7.0 10.7* - VANCORNDM 26.1 32.1 - - - VANCTROUGH - - 22.7* 25.2* 5.3* Vancomycin Administrations from JUL (last 72 hours) Date/Time Action Medication Dose Rate 07/01/22 1652 $ New Bag/Syringe vancomycin (Vancocin) 1,000 mg in 0.9% NaCl IV 250 mL IVPB 1,000 mg 250 mL/hr 07/01/22 0851 $ New Bag/Syringe vancomycin (Vancocin) 1,000 mg in 0.9% NaCl IV 250 mL IVPB 1,000 mg 250 mL/hr 07/01/22 0114 $ New Bag/Syringe vancomycin (Vancocin) 1,000 mg in 0.9% NaCl IV 250 mL IVPB 1,000 mg 250 mL/hr 06/30/22 1640 $ New Bag/Syringe vancomycin (Vancocin) 1,000 mg in 0.9% NaCl IV 250 mL IVPB 1,000 mg 250 mL/hr Assessment Target trough:15-20 mcg/mL The vancomycin serum level reported above was drawn ~35 hours after the previous dose was administered. Patient's trough level is above the therapeutic range on the current regimen. Pharmacokinetic parameters are unable to be calculated on the random level this morning because they are less likely to be reliable in the setting of unstable renal function S.Cr is unstable at this time. Plan Dosing: HOLD vancomycin today due to continued supratherapeutic level Monitoring: Will obtain a random vancomycin level about 24 hours after the level drawn today and re-dose if appropriate. Will resume dosing when serum level is < 20 mcg/mL. Will continue to monitor patient's renal function. Please contact the [facility] pharmacy department ([phone]) with any questions. Clover Ceron PharmD 07/03/2022 9:33 AM Resources: Vancomycin Protocol MOTIVE PAINT TECHNICIAN * Artur Mcgraw MD - 07/03/2022 8:44 AM CST [facility] Medicine Progress Note Name: Mojgan Tabor Age: [age] year old Room: 812/01 Date Admitted: 06/27/2022 Chief Complaint: Shortness of breath Subjective: Patient was seen and examined at bedside. Seen sleeping. Opens eyes to sternal rub but unable to provide ROS today. No signs of respiratory distress. Clinical course updated to sister Adriane Hilliard. Objective: Vitals: 07/03/22 0125 07/03/22 0200 07/03/22 0206 07/03/22 0404 BP: 147/89 Pulse: 105 96 Resp: Temp: 97.6 ??F (36.4 ??C) SpO2: 91% 94% 94% 98% Weight: Height: Estimated body mass index is 17.15 kg/m?? as calculated from the following: Height as of this encounter: 1.854 m (6' 1 ). Weight as of this encounter: 59 kg (130 lb). Physical Exam: General: Alert Skin: No rashes or lesions noted HEENT: NC,AT, PERRL, EOMINeck: Supple, no JVD Heart: RRR, normal S1 and S2 Lungs: diffuse coarse crackles, decreased breath sounds right lung Abdomen: Soft, non-tender, normal bowel sounds.??PEG tube in place Extremities:??RUE swelling improved Pulses: 2+ and symmetric MSKL: Normal bulk and tone. Intact ROM in all extremities Neuro: Alert Labs: Recent Labs Component Name 07/03/22 0405 07/01/22 1634 06/30/22 1039 06/27/22 2330 06/27/22 2215 06/21/22 1926 06/15/22 0603 WBC 6.9 - 10.7* - - - 6.8 HGB 9.6* - 11.4* - - - 12.8 HCT 29.6* - 34.0* - - - 38.1 NA 144 - 140 - 142 - 143 CL 110* - 107 - 101 - 103 BUN 32* - 7 - 17 - 12 CREATININE 3.16* - 0.58* - 0.78 - 0.67* PHOS - - - - - - 3.0 CALCIUM 9.1 - 9.5 - 10.3* - 9.9 PT - - - - 12.8 - - INR - - - - 1.0 - - AST - - 13 - 19 - 13 ALT - - 5 - 6 - 9 ALKPHOS - - 65 - 95 - 77 TBILI - - 0.3 - 0.3 - 0.2 - = values in this interval not displayed. Imaging: No results found. Epilepsy, unspecified, not intractable, without status epilepticus (CMS/HCC) POA: Yes Muscle weakness (generalized) POA: Yes Hemiplegia and 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- dominant side (CMS/HCC) POA: Yes Sepsis without acute organ dysfunction (CMS/HCC) POA: Yes PAD (peripheral artery disease) (CMS/HCC) POA: Yes History of stroke POA: Yes Protein-calorie malnutrition, unspecified severity (CMS/HCC) POA: Yes Leukocytosis, unspecified type POA: Yes Tachycardia POA: Yes Hypoxia POA: Yes Acute respiratory failure with hypoxia (CMS/HCC) POA: Yes Pneumonia of right lower lobe due to infectious organism POA: Yes Assessment and Plan: 62 year old male with past medical history significant for seizures, stroke w/residual L sided deficits, dementia, Zenker diverticulum, dysphagia, HTN, BPH, PAD s/p L AKA??who is presenting for hypoxia 1. Pneumonia: continue Zosyn and Vanc, (plan for 7 day treatment EOT 07/05) procal elevated, MRSA swab??positive, unable to expectorate for sputum culture ?? 2. Left thigh??lesion: reviewed imaging with radiology and these findings were present in CT from 05/30 and 06/12, US left thigh??without clear evidence of rim enhancement suggestive of abscess; will monitor for now ?? 3. SAMANTHA: FeNA indicative of intrinsic path, likely related to vanc, renally dosed medications, nephrology consulted 4. Aspiration: -right lung opacification, repeat CXR to with persistent right lung collapse, no tachypnea or respiratory distress, -ABG stat, continue holding tube feed until nutrition eval, consult pulmonology -will re discuss with ENT about possible intervention for Zenker's diverticulum -continue bronchial hygiene and nebs 5. Acute hypoxic respiratory failure: 07/01 to aspiration + pneumonia, continue Zosyn and Vancomycin,pulmonology consult 6. Hx of seizure disorder: continue??depakote 500mg q6h, clobazam 20mg BID, vimpat 200mg BID, Keppra 2g BID 7. Hx of CVA: continue lipitor 8. PAD: continue asprin and lipitor 9. BPH: continue tamsulosin?? Lines:??PIV Disposition: Inpatient Diet:??Tube feed Prophylaxis:??SQH Code:??Full Artur Mcgraw MD Hospitalist, Internal Medicine MOTIVE PAINT TECHNICIAN * Mary Simmons MSW - 07/02/2022 3:21 PM CST Tuesday Summary Note Discharge Level of Care:SNF Discharge Destination:[facility] Insurance Auth:N/A Anticipated Mode of Transportation:EMS Contacts (Name, relationship, phone #): Adriane Rodrigues, Anticipated DC Date:07/05 Pending Needs:Medical readiness Comments: Pt resident of [facility]. Facility and family anticipate pt to return to facility when medically appropriate. SW to follow for discharge. CLARITA Thornton [id number] 07/02/2022 MOTIVE PAINT TECHNICIAN * Rose Marie Peters RN - 07/02/2022 3:00 PM CST Case Management Progress Note Anticipated level of care at discharge: Penitentiary - Medicaid Discharge Plan: discharge back to [facility] Readmission: Yes Readmission Risk: READMISSION RISK SCORE is 25 at 3:00 PM 07/02/2022. Anticipated Discharge Date: Anticipated Discharge Date: 07/05/22 Patient/Family provided with list of resources? Unknown Preferred Provider / High Quality Network List given?: Unknown Reason for provider choice: Unknown Transportation at Discharge: Ambulance Follow Up Appointment: Transportation to MD:Bernice Equipment at Home: Equipment at Home: Facility Equipment List DME patient requires but does not have: DME Provider: Huy Screening: Medication affordability concerns: Name: Rose Marie Peters RN MOTIVE PAINT TECHNICIAN * Pat Rodriguez RN - 07/02/2022 11:07 AM CST Problem: Fall Risk Goal: Fall risk and fall related injury risk are minimized (interventions related to the fall risk can be found in the flowsheet documentation) Outcome: Progressing Problem: Hemodynamic Status/Cardiac Output Goal: Patient has stable vital signs and fluid balance Outcome: Progressing Problem: Skin Integrity Goal: Skin integrity is maintained or improved Outcome: Progressing Problem: Oral Intake: Inadequate oral intake Goal: Enteral/parenteral nutrition prescription will be consistent with estimated needs Outcome: Progressing MOTIVE PAINT TECHNICIAN * Pat Rodriguez RN - 07/02/2022 11:02 AM CST 0900 Upon assessment pt sounds gurgly. Oral suctioning provided, O2 sat 98% 2L NC. TF residual 150ml. called (Dr. Mcgraw). Per , RN to pause TF and call respiratory for suctioning. RN to give medsper PEG as ordered. RN bladder scanned pt (338ml), will re-scan per order. 0915 RT at bedside suctioning pt 1700 Continue holding TF per Dr. Mcgraw MOTIVE PAINT TECHNICIAN * Lucien, Artur Haq MD - 07/02/2022 9:45 AM CST [facility] Medicine Progress Note Name: Mojgan Tabor Age: [age] year old Room: 812/ Date Admitted: 06/27/2022 Chief Complaint: Shortness of breath Subjective: Patient was seen and examined at bedside. More alert today. Able to say his name. Sounds gurgly. Denies any chest pain, headaches, dizziness, shortness of breath. Objective: Vitals: 07/02/22 0428 07/02/22 0747 07/02/22 0841 07/02/22 0926 BP: 147/71 155/79 Pulse: 106 (!) 113 (!) 117 Resp: 18 20 20 Temp: 98.9 ??F (37.2 ??C) 98 ??F (36.7 ??C) SpO2: 94% 98% 92% Weight: Height: Estimated body mass index is 17.15 kg/m?? as calculated from the following: Height as of this encounter: 1.854 m (6' 1 ). Weight as of this encounter: 59 kg (130 lb). Physical Exam: General: Alert, cooperative, NAD Skin: No rashes or lesions noted HEENT: NC,AT, PERRL, EOMINeck: Supple, no JVD Heart: RRR, normal S1 and S2 Lungs: Clear to auscultation. No wheezes, rales or rhonchi Abdomen: Soft, non-tender, normal bowel sounds.??PEG tube in place Extremities:??RUE swelling Pulses: 2+ and symmetric MSKL: Normal bulk and tone. Intact ROM in all extremities Neuro: Alert, squeezes hands R>L Labs: Recent Labs Component Name 07/02/22 0531 07/01/22 1634 06/30/22 1039 06/27/22 2330 06/27/22 2215 06/21/22 1926 06/15/22 0603 WBC 5.7 - 10.7* - - - 6.8 HGB 9.8* - 11.4* - - - 12.8 HCT 30.2* - 34.0* - - - 38.1 NA 144 - 140 - 142 - 143 CL 111* - 107 - 101 - 103 BUN 19 - 7 - 17 - 12 CREATININE 1.99* - 0.58* - 0.78 - 0.67* PHOS - - - - - - 3.0 CALCIUM 9.1 - 9.5 - 10.3* - 9.9 PT - - - - 12.8 - - INR - - - - 1.0 - - AST - - 13 - 19 - 13 ALT - - 5 - 6 - 9 ALKPHOS - - 65 - 95 - 77 TBILI - - 0.3 - 0.3 - 0.2 - = values in this interval not displayed. Imaging: No results found. Epilepsy, unspecified, not intractable, without status epilepticus (CMS/HCC) POA: Yes Muscle weakness (generalized) POA: Yes Hemiplegia and 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- dominant side (CMS/HCC) POA: Yes Sepsis without acute organ dysfunction (CMS/HCC) POA: Yes PAD (peripheral artery disease) (CMS/HCC) POA: Yes History of stroke POA: Yes Protein-calorie malnutrition, unspecified severity (CMS/HCC) POA: Yes Leukocytosis, unspecified type POA: Yes Tachycardia POA: Yes Hypoxia POA: Yes Acute respiratory failure with hypoxia (CMS/HCC) POA: Yes Pneumonia of right lower lobe due to infectious organism POA: Yes Assessment and Plan: 62 year old male with past medical history significant for seizures, stroke w/residual L sided deficits, dementia, Zenker diverticulum, dysphagia, HTN, BPH, PAD s/p L AKA??who is presenting for hypoxia 1. Pneumonia: continue Zosyn and Vanc,(plan for 7 day treatment EOT 07/05) procal elevated, MRSA swab positive, unable to expectorate for sputum culture ?? 2. Left thigh??lesion: reviewed imaging with radiology and these findings were present in CT from 05/30 and 06/12, US left thigh without clear evidence of rim enhancement suggestive of abscess; will monitor for now ?? 3. Fever episode: likely 2/2 to pneumonia vs drug fever vs aspiration no new rashes, right arm blisters noted which appeared after IV infiltration stable, repeat blood culture and fungal culture without growth so far; RUE Duplex without DVT continue Zosyn and Vancomycin? 4. Hx of seizure disorder: continue??depakote 500mg q6h, clobazam 20mg BID, vimpat 200mg BID, Keppra 2g BID ?? 4. Hx of CVA: continue lipitor ?? 5. PAD: continue asprin and lipitor ?? 6. BPH: continue tamsulosin?? Lines:??PIV Disposition: Inpatient Diet:??Tube feed Prophylaxis:??SQH Code:??Full Artur Mcgraw MD Hospitalist, Internal Medicine MOTIVE PAINT TECHNICIAN * Tamie Carrera, PharmD - 07/02/2022 7:46 AM CST Vancomycin Per Pharmacy - Follow-Up Note Subjective Mojgan Tabor is a 62 year old male receiving vancomycin dosed per pharmacy. Indication for anti-infective therapy: documented infection Site of anti-infective therapy: Lower respiratory. Goal trough 15-20 mcg/mL. Objective Day of treatment: 5 Current dosing regimen: vancomycin on hold for supratherapeutic levels (vancomycin 1000mg q8h stopped 07/01/22 after five doses) Weight: 59 kg (130 lb) Estimated Creatinine Clearance: 32.5 mL/min (A) (by C-G formula based on SCr of 1.99 mg/dL (H)). Ht Readings from Last 1 Encounters: 06/27/22 6' 1 (1.854 m) Recent Labs Component Name 07/02/22 0531 07/01/22 1634 06/30/22 1039 06/30/22 0707 CREATININE 1.99* 1.05 0.58* - WBC 5.7 7.0 10.7* - VANCORNDM 32.1 - - - VANCTROUGH - 22.7* 25.2* 5.3* Vancomycin Administrations from JUL (last 72 hours) Date/Time Action Medication Dose Rate 07/01/22 1652 $ New Bag/Syringe vancomycin (Vancocin) 1,000 mg in 0.9% NaCl IV 250 mL IVPB 1,000 mg 250 mL/hr 07/01/22 0851 $ New Bag/Syringe vancomycin (Vancocin) 1,000 mg in 0.9% NaCl IV 250 mL IVPB 1,000 mg 250 mL/hr 07/01/22 0114 $ New Bag/Syringe vancomycin (Vancocin) 1,000 mg in 0.9% NaCl IV 250 mL IVPB 1,000 mg 250 mL/hr 06/30/22 1640 $ New Bag/Syringe vancomycin (Vancocin) 1,000 mg in 0.9% NaCl IV 250 mL IVPB 1,000 mg 250 mL/hr 06/30/22 0902 $ New Bag/Syringe vancomycin (Vancocin) 1,000 mg in 0.9% NaCl IV 250 mL IVPB 1,000 mg 250 mL/hr 06/29/22 2206 $ New Bag/Syringe vancomycin (Vancocin) 750 mg in 0.9% NaCl IV 250 mL IVPB 750 mg 333.33 mL/hr 06/29/22 0929 $ New Bag/Syringe vancomycin (Vancocin) 750 mg in 0.9% NaCl IV 250 mL IVPB 750 mg 333.33 mL/hr Assessment Target trough: 15-20 mcg/mL The vancomycin serum level this morning is 32.1 mcg/mL. This was drawn 12.67 hours after the previous dose was administered. The serum vancomycin level is above the therapeutic range. Pharmacokinetic parameters are unable to be calculated on the random level this morning using the best available calculation methods and are less likely to be reliable in the setting of unstable renal function. SCr is unstable at this time. Plan Dosing: Will hold vancomycin today. Monitoring: Will obtain a random serum vancomycin level with morning labs on 07/03/22 (will resume dosing when serum level is < 20 mcg/mL). Will continue to monitor patient's renal function. Please contact the [facility] pharmacy department ([phone]) with any questions. Tamie Carrera, PharmD 07/02/2022 7:29 AM Resources: Vancomycin Protocol MOTIVE PAINT TECHNICIAN * Nevaeh Valera, [facility] - 07/01/2022 6:52 PM CST Vancomycin Per Pharmacy - Follow-Up Note Subjective Mojgan Tabor is a 62 year old male receiving vancomycin dosed per pharmacy. Indication for anti-infective therapy: suspected infection Site of anti-infective therapy: Lower respiratory. Goal trough 15-20 mcg/mL. Objective Day of treatment: 4 Current dosing regimen: 1000 mg, q 8 hr. Weight: 59 kg (130 lb) Estimated Creatinine Clearance: 61.7 mL/min (by C-G formula based on SCr of 1.05 mg/dL). Ht Readings from Last 1 Encounters: 06/27/22 6' 1 (1.854 m) Recent Labs Component Name 07/01/22 1634 06/30/22 1039 06/30/22 0707 06/29/22 0709 CREATININE 1.05 0.58* - 0.56* WBC 7.0 10.7* - 11.1* VANCTROUGH 22.7* 25.2* 5.3* - Radiocontrast within 72 hours The 3 most recent administrations since 06/28/2022 are shown below each listed medication. Other Order Route Dose Action Date iopamidol (Isovue 370) 76 % contrast Intravenous 100 mL $ Given - Contrast 06/28/2022 Vancomycin Administrations from JUL (last 72 hours) Date/Time Action Medication Dose Rate 07/01/22 1652 $ New Bag/Syringe vancomycin (Vancocin) 1,000 mg in 0.9% NaCl IV 250 mL IVPB 1,000 mg 250 mL/hr 07/01/22 0851 $ New Bag/Syringe vancomycin (Vancocin) 1,000 mg in 0.9% NaCl IV 250 mL IVPB 1,000 mg 250 mL/hr 07/01/22 0114 $ New Bag/Syringe vancomycin (Vancocin) 1,000 mg in 0.9% NaCl IV 250 mL IVPB 1,000 mg 250 mL/hr 06/30/22 1640 $ New Bag/Syringe vancomycin (Vancocin) 1,000 mg in 0.9% NaCl IV 250 mL IVPB 1,000 mg 250 mL/hr 06/30/22 0902 $ New Bag/Syringe vancomycin (Vancocin) 1,000 mg in 0.9% NaCl IV 250 mL IVPB 1,000 mg 250 mL/hr 06/29/22 2206 $ New Bag/Syringe vancomycin (Vancocin) 750 mg in 0.9% NaCl IV 250 mL IVPB 750 mg 333.33 mL/hr 06/29/22 0929 $ New Bag/Syringe vancomycin (Vancocin) 750 mg in 0.9% NaCl IV 250 mL IVPB 750 mg 333.33 mL/hr 06/28/22 2203 $ New Bag/Syringe vancomycin (Vancocin) 750 mg in 0.9% NaCl IV 250 mL IVPB 750 mg 333.33 mL/hr Assessment Target trough:15-20 mcg/mL The vancomycin serum level reported above was drawn 7.7 hours after the previous dose was administered. Using pharmacokinetic calculations, the extrapolated true trough is approximately 22.1 mcg/mL Patient's trough level is above the therapeutic range on the current regimen. Ke = 0.0856 hr-1 t1/2 = 8.1 hrs Vd = 48 L S.Cr is stable at this time, but with small rise over last 24 hours. Too soon to tell if truly unstable versus lab aberration. Patient did receive one more 1000mg dose after lab resulted and before order discontinued Plan Dosing: Will hold current vancomycin therapy Monitoring: Will order a random level in ~12hrs from last dose given to evaluate renal function and medication clearance ability Random level scheduled for 07/02/22 @ 0500 Will continue to monitor patient's renal function. Please contact the [facility] pharmacy department ([phone]) with any questions. Nevaeh Valera RPH 07/01/2022 6:46 PM Resources: Vancomycin Protocol MOTIVE PAINT TECHNICIAN * Mary Simmons, [employer] - 07/01/2022 3:52 PM CST Facility Admission Note Admitted From: [facility] Level of Care (Skilled, Residential, Assisted, Longterm, Detention): Residential Primary Payor at Facility: [facility] Medicaid Can patient Return: Yes Facility Contact: Daina [phone] Physician Following at Facility: [facility] Does Patient/Family want them to Return?: QIANA DIOPM with sister Family/Support Name/Contact: Adriane, , Number of Skilled Days Used (if applicable): n/a Prior Level of Functioning: Alert and oriented, Disposition/Anticipated Level of Care at Discharge: Anticipated mode of transport: EMS Special Testing Requirements: n/a Comments: Facility will be able to accept pt back on the weekend. Daina [phone] UPDATE: Sister, Adriane, agreeable to patient returning to [place]. Name/Phone number: Mary Simmons, [employer] [phone] MOTIVE PAINT TECHNICIAN * Mely Layne, [facility] - 07/01/2022 2:41 PM CST Initial Nutrition Assessment Brief Synopsis: Patient is at Nutrition Risk; Specific criteria can be found in assessment below Nutrition Plan: NPO; receiving Jevity 1.5 @ 60 ml/hr TF recommendations: Jevity 1.5 at 55 ml/hr + Prostat pkt BID Provides 2180 kcal, 114 g protein, 305 g carbohydrate, 1003 ml free water. +100 ml q 6 hrs free water flush or per MD if on IVF +150 ml q 4 hrs free water flush or per MD if not on additional fluids Recommendations to Physician: See above. Comments: Pt screened for low BMI. Weight hx indicates pt has gained weight since last admission. Pt NPO receiving Jevity 1.5 @ 60 ml/hr via PEG tube. See TF recs above. Last BM 06/30. Labs reviewed; RD noted decreased [employer] (0.58) and serum albumin (2.2). Will continue to monitor per Clinical Nutrition guidelines. Assessment: Med/Surg History and Clinical Diagnoses: 62 year old male with PMH of seizures, stroke w/residual Lsided deficits, dementia, Zenker diverticulum, dysphagia, HTN, BPH, PAD s/p L AKA [facility] Height: 185.4 cm (6' 1 ) Weight: 59 kg (130 lb) BMI: Body mass index is 17.15 kg/m??. BMI Range: Underweight IBW/lb (Calculated) Male: 184 , Recent Weights/Methods 05/30/2022 1434 05/31/2022 0115 06/01/2022 1200 06/11/2022 2016 06/21/2022 1910 06/25/2022 1117 06/27/2022 2131 07/01/2022 0400 Weight: 59.5 kg (131 lb 2.8 oz) 59.5 kg (131 lb 2.8 oz) 59.5 kg (131 lb 2.8 oz) 68 kg (150 lb) 68 kg (150 lb) 47.6 kg (105 lb) 47.6 kg (105 lb) 59 kg (130 lb) Weight Method (Utilize Scales): -- -- -- -- Estimated -- Stated -- Wt Comments: reviewed; weight stable Diet order accuracy Current diet order: NPO Current tube feeding order: Jevity 1.5 @ 60 ml/hr Nutrition recommendation: agree with current nutrition order P.O.Intake for the past 48 hrs: No data recorded Supplement(s) Consumed- Last 48 hours None Food Allergies: No known food allergies GI Concerns: None Chewing/Swallowing: Dysphagia (w/ PEG tube) Pain affecting intake: No Estimated Needs: KCAL: 5664-2127 (30-35 kcal/kg ABW) Protein (g): 100 (1.2 g/kg IBW) Fluid (ml): 1 ml/kcal Needs based on: Kcal/kg- (Comment) (59kg) Recommended Access Route: TF Laboratory values: Recent Labs Component Name 06/30/22 1039 06/29/22 0709 06/27/22 2215 06/21/22 1926 BUN 7 11 17 14 CREATININE 0.58* 0.56* 0.78 0.58* NA 140 140 142 142 POTASSIUM 4.0 4.4 4.4 4.5 CL 107 106 101 106 CO2 24 26 26 29 GLUCOSE 115 102 98 116* CALCIUM 9.5 9.5 10.3* 10.7* PROT 6.2 - 8.3 8.3 ALB 2.2* - 3.4 3.2* TBILI 0.3 - 0.3 0.3 ALKPHOS 65 - 95 88 ALT 5 - 6 10 AST 13 - 19 19 ANIONGAP 13 12 19* 12 BCR 12 20 22 24* OSMOLALITY 289 290 296 295 AGRATIO 0.6* - 0.7* 0.6* EGFR >90 >90 >90 >90 Medications: Current Facility-Administered Medications Medication ??? 0.9% NaCl injection 3 mL And ??? 0.9% NaCl injection 1-10 mL ??? acetaminophen (Tylenol) tablet 500 mg ??? artificial tears ophthalmic solution 1 drop ??? aspirin chew tablet 81 mg ??? atorvastatin (Lipitor) tablet 40 mg ??? bisacodyl (Dulcolax) suppository 10 mg ??? cloBAZam (Onfi) tablet 20 mg ??? divalproex sprinkle (Depakote Sprinkle) capsule 500 mg ??? fluticasone propionate (Flonase) nasal spray 1 spray ??? folic acid (Folvite) tablet 1 mg ??? heparin injection 5,000 Units ??? lacosamide (Vimpat) tablet 200 mg ??? lactated ringers infusion ??? levETIRAcetam (Keppra) tablet 2,000 mg ??? piperacillin - tazobactam (Zosyn) 3.375 g in 0.9% NaCl IV 55 mL IVPB ??? polyethylene glycol 3350 (Miralax) packet 17 g ??? tamsulosin (Flomax) capsule 0.4 mg ??? thiamine (Vitamin B-1) tablet 100 mg ??? vancomycin (Vancocin) 1,000 mg in 0.9% NaCl IV 250 mL IVPB ??? vancomycin (Vancocin) IV dose per pharmacy Skin/Wound: Exceptions (right arm) Nutrition Care Process (1) Nutrition Diagnostic Statement: [...] Ongoing Nutrition Goal Progress: New goal established Ascom: [id number] MOTIVE PAINT TECHNICIAN * Pat Rodriguez RN - 07/01/2022 12:21 PM CST Problem: Fall Risk Goal: Fall risk and fall related injury risk are minimized (interventions related to the fall risk can be found in the flowsheet documentation) Outcome: Progressing Problem: Hemodynamic Status/Cardiac Output Goal: Patient has stable vital signs and fluid balance Outcome: Progressing Problem: Skin Integrity Goal: Skin integrity is maintained or improved Outcome: Progressing MOTIVE PAINT TECHNICIAN * Artur Mcgraw MD - 07/01/2022 10:24 AM CST [facility] Progress Note Name: Mojgan Tabor Age: [age] year old Room: 812/01 Date Admitted: 06/27/2022 Chief Complaint: Shortness of breath Subjective: Patient was seen and examined at bedside. Mumbling and unable to give a reliable ROS. Arousal to sternal rub Objective: Vitals: 07/01/22 0400 07/01/22 0511 07/01/22 0559 07/01/22 0748 BP: 124/72 142/87 Pulse: (!) 111 101 Resp: 18 18 Temp: 98.3 ??F (36.8 ??C) 98.5 ??F (36.9 ??C) SpO2: 96% 100% 100% Weight: 59 kg (130 lb) Height: Estimated body mass index is 17.15 kg/m?? as calculated from the following: Height as of this encounter: 1.854 m (6' 1 ). Weight as of this encounter: 59 kg (130 lb). Physical Exam: General: Alert, cooperative, NAD Skin: No rashes or lesions noted HEENT: NC,AT, PERRL, EOMINeck: Supple, no JVD Heart: RRR, normal S1 and S2 Lungs: Clear to auscultation. No wheezes, rales or rhonchi Abdomen: Soft, non-tender, normal bowel sounds. PEG tube in place Extremities: RUE swelling Pulses: 2+ and symmetric MSKL: Normal bulk and tone. Intact ROM in all extremities Neuro: Alert, squeezes hands R>L Labs: Recent Labs Component Name 06/30/22 1039 06/27/22 2330 06/27/22 2215 06/21/22 1926 06/15/22 0603 WBC 10.7* - - - 6.8 HGB 11.4* - - - 12.8 HCT 34.0* - - - 38.1 NA 140 - 142 - 143 CL 107 - 101 - 103 BUN 7 17 - 12 CREATININE 0.58* - 0.78 - 0.67* PHOS - - - - 3.0 CALCIUM 9.5 - 10.3* - 9.9 PT - - 12.8 - - INR - - 1.0 - - AST 13 - 19 - 13 ALT 5 - 6 - 9 ALKPHOS 65 - 95 - 77 TBILI 0.3 - 0.3 - 0.2 - = values in this interval not displayed. Imaging: No results found. Epilepsy, unspecified, not intractable, without status epilepticus (CMS/HCC) POA: Yes Muscle weakness (generalized) POA: Yes Hemiplegia and 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- dominant side (CMS/HCC) POA: Yes Sepsis without acute organ dysfunction (CMS/HCC) POA: Yes PAD (peripheral artery disease) (CMS/HCC) POA: Yes History of stroke POA: Yes Protein-calorie malnutrition, unspecified severity (CMS/HCC) POA: Yes Leukocytosis, unspecified type POA: Yes Tachycardia POA: Yes Hypoxia POA: Yes Acute respiratory failure with hypoxia (CMS/HCC) POA: Yes Pneumonia of right lower lobe due to infectious organism POA: Yes Assessment and Plan: 62 year old male with past medical history significant for seizures, stroke w/residual L sided deficits, dementia, Zenker diverticulum, dysphagia, HTN, BPH, PAD s/p L AKA??who is presenting for hypoxia 1. Pneumonia: continue Zosyn and Vanc, procal elevated, MRSA swab positive, unable to expectorate for sputum culture ?? 2. Left thigh lesion: can not rule infection, reviewed imaging with radiology and these findings were present in CT from 05/30 and 06/12, US left thigh pending ?? 3. Fever episode: likely 2/2 to pneumonia vs drug fever vs aspiration no new rashes, right arm blisters noted which appeared after IV infiltration stable, repeat blood culture and fungal culture pending; RUE Duplex without DVT continue Zosyn and Vancomycin ?? 4. Hx of seizure disorder: continue??depakote 500mg q6h, clobazam 20mg BID, vimpat 200mg BID, Keppra 2g BID ?? 4. Hx of CVA: continue lipitor ?? 5. PAD: continue asprin and lipitor ?? 6. BPH: continue tamsulosin Lines:??PIV Disposition: Inpatient Diet:??Tube feed Prophylaxis:??SQ Code: Full Artur Mcgraw MD Hospitalist, Internal Medicine MOTIVE PAINT TECHNICIAN * Lola Loco RN - 07/01/2022 6:00 AM CST Problem: Fall Risk Goal: Fall risk and fall related injury risk are minimized (interventions related to the fall risk can be found in the flowsheet documentation) 07/01/2022 075 by Lola Loco RN Outcome: Progressing 07/01/2022 06 by Lola Loco RN Outcome: Progressing Problem: Hemodynamic Status/Cardiac Output Goal: Patient has stable vital signs and fluid balance 07/01/2022751 by Lola Loco RN Outcome: Progressing 07/01/2022 06 by Lola Loco RN Outcome: Progressing Problem: Skin Integrity Goal: Skin integrity is maintained or improved 07/01/2022751 by Lola Loco RN Outcome: Progressing 07/01/2022621 by Lola Loco RN Outcome: Progressing Christine Tran PharmD - 06/30/2022 11:29 AM CST Vancomycin Per Pharmacy - Follow-Up Note Mojgan Tabor is a 62 year old male receiving vancomycin dosed per pharmacy. Additional vancomycin trough collected by lab this morning following level at 0707 because previoussample was thought to be lost. The second level was collected while the dose was infusing and not reflective of therapy. Please see previous note for accurate trough level and plan. Recent Labs Component Name 06/30/22 1039 06/30/22 0707 06/29/22 0709 06/27/22 2330 06/27/22 2215 06/02/22 0453 06/01/22 0538 CREATININE 0.58* - 0.56* - 0.78 - 0.68* WBC 10.7* - 11.1* 15.8* - - 7.0 VANCTROUGH 25.2* 5.3* - - - - 35.3* - = values in this interval not displayed. Please contact the [facility] pharmacy department ([phone]) with any questions. Christine Otto PharmD 06/30/2022 11:25 AM Resources: Vancomycin Protocol MOTIVE PAINT TECHNICIAN * Artur Mcgraw MD - 06/30/2022 11:20 AM CST [facility] Progress Note Name: Mojgan Tabor Age: [age] year old Room: 812/01 Date Admitted: 06/27/2022 Chief Complaint: Shortness of breath Subjective: Patient was seen and examined at bedside. Less verbal in the morning today. Febrile. Objective: Vitals: 06/30/22 0030 06/30/22 0553 06/30/22 0751 06/30/22 0833 BP: 128/88 146/85 150/83 Pulse: (!) 110 (!) 129 (!) 132 (!) 135 Resp: 18 18 18 22 Temp: 98.1 ??F (36.7 ??C) 99.3 ??F (37.4 ??C) (!) 100.2 ??F (37.9 ??C) SpO2: 97% 92% 92% 95% Weight: Height: Estimated body mass index is 13.85 kg/m?? as calculated from the following: Height as of this encounter: 1.854 m (6' 1 ). Weight as of this encounter: 47.6 kg (105 lb). Physical Exam: General: Alert, cooperative, NAD Skin: No rashes or lesions noted HEENT: NC,AT, PERRL, EOMI, No drainage or sinus tenderness, nares patent, Mucous membranes moist Neck: Supple, no JVD Heart: RRR, normal S1 and S2 Lungs: Clear to auscultation. No wheezes, rales or rhonchi Abdomen: Soft, non-tender, normal bowel sounds. PEG tube in place Extremities: RUE swelling with blistering Pulses: 2+ and symmetric MSKL: Normal bulk and tone. Intact ROM in all extremities Neuro: Alert and oriented X1 Labs: Recent Labs Component Name 06/30/22 1039 06/27/22 2330 06/27/22 2215 06/21/22 1926 06/15/22 0603 WBC 10.7* - - - 6.8 HGB 11.4* - - - 12.8 HCT 34.0* - - - 38.1 NA 140 - 142 - 143 CL 107 - 101 - 103 BUN 7 - 17 - 12 CREATININE 0.58* - 0.78 - 0.67* PHOS - - - - 3.0 CALCIUM 9.5 - 10.3* - 9.9 PT - - 12.8 - - INR - - 1.0 - - AST - - 19 - 13 ALT - - 6 - 9 ALKPHOS - - 95 - 77 TBILI - - 0.3 - 0.2 - = values in this interval not displayed. Imaging: XR CHEST 1VW PORTABLE Result Date: 06/27/2022 IMPRESSION: Right lower lung zone consolidative opacities, which corresponds to the consolidation seen on chest CT 06/12/2022 and consistent with pneumonia and/or aspiration pneumonitis. Report drafted by Rodolfo Naidu MD (residential coordinator). I, Georgia Lees MD, PhD have personally reviewed and interpreted this examination/study. > Interpreting Provider: Georgia Lees MD, PhD on 06/27/2022 11:[address] CHEST PE W ABD PELVIS W CONT Result Date: 06/28/2022 Impression: 1.No evidence of acute pulmonary embolism. 2.Volume loss and confluent consolidation inthe right lower lobe with areas of hypoenhancement [...] unremarkable. > Dictated by Alexandro Kelsey MD (operations vice president) Ashwin Thomason MD have personally reviewed and interpreted this examination/study. > Interpreting Provider: Ashwin Read MD on 06/28/2022 8:38 AM Epilepsy, unspecified, not intractable, without status epilepticus (CMS/HCC) POA: Yes Muscle weakness (generalized) POA: Yes Hemiplegia and 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- dominant side (CMS/HCC) POA: Yes Sepsis without acute organ dysfunction (CMS/HCC) POA: Yes PAD (peripheral artery disease) (CMS/HCC) POA: Yes History of stroke POA: Yes Protein-calorie malnutrition, unspecified severity (CMS/HCC) POA: Yes Leukocytosis, unspecified type POA: Yes Tachycardia POA: Yes Hypoxia POA: Yes Acute respiratory failure with hypoxia (CMS/HCC) POA: Yes Pneumonia of right lower lobe due to infectious organism POA: Yes Assessment and Plan: 62 year old male with past medical history significant for seizures, stroke w/residual L sided deficits, dementia, Zenker diverticulum, dysphagia, HTN, BPH, PAD s/p L AKA??who is presenting for hypoxia 1. Pneumonia: continue Zosyn and Vanc, procal elevated, MRSA swab pending ?? 2. Left thigh lesion: can not rule infection, reviewed imaging with radiology and these findings were present in CT from 05/30 and 06/12, US left thigh ordered ?? 3. Fever episode: likely 2/2 to pneumonia vs drug fever vs aspiration, no new rashes, right arm blisters noted which appeared after IV infiltration, repeat blood culture and fungal culture; rule out upper extremity DVT continue Zosyn and Vancomycin 4. Hx of seizure disorder: continue depakote 500mg q6h, clobazam 20mg BID, vimpat 200mg BID, Buyfbs2z BID ?? 4. Hx of CVA: continue lipitor ?? 5. PAD: continue asprin and lipitor ?? 6. BPH: continue tamsulosin Lines: PIV Disposition: Inpatient Diet: Tube feed Prophylaxis: [facility] Code: Full Artur Mcgraw MD Hospitalist, Internal Medicine MOTIVE PAINT TECHNICIAN * Christine Otto, PharmD - 06/30/2022 8:31 AM CST Vancomycin Per Pharmacy - Follow-Up Note Subjective Mojgan Tabor is a 62 year old male receiving vancomycin dosed per pharmacy. Indication for anti-infective therapy: suspected infection Site of anti-infective therapy: Lower respiratory. Goal trough 15-20 mcg/mL. Objective Day of treatment: 3 Current dosing regimen: 750 mg, q 12 h. Weight: 47.6 kg (105 lb) Estimated Creatinine Clearance: 93.3 mL/min (A) (by C-G formula based on SCr of 0.56 mg/dL (L)). Ht Readings from Last 1 Encounters: 06/27/22 6' 1 (1.854 m) Recent Labs Component Name 06/30/22 0707 06/29/22 0709 06/27/22 2330 06/27/22 2215 06/21/22 1926 06/02/22 0453 06/01/22 0538 03/19/22 0203 03/18/22 0606 CREATININE - 0.56* - 0.78 0.58* - 0.68* - 0.56* WBC - 11.1* 15.8* - 9.9 - 7.0 - - VANCTROUGH 5.3* - - - - - 35.3* - <2.5* - = values in this interval not displayed. Radiocontrast within 72 hours The 3 most recent administrations since 06/27/2022 are shown below each listed medication. Other Order Route Dose Action Date iopamidol (Isovue 370) 76 % contrast Intravenous 100 mL $ Given - Contrast 06/28/2022 Vancomycin Administrations from JUL (last 72 hours) Date/Time Action Medication Dose Rate 06/29/22 2206 $ New Bag/Syringe vancomycin (Vancocin) 750 mg in 0.9% NaCl IV 250 mL IVPB 750 mg 333.33 mL/hr 06/29/22 0929 $ New Bag/Syringe vancomycin (Vancocin) 750 mg in 0.9% NaCl IV 250 mL IVPB 750 mg 333.33 mL/hr 06/28/22 2203 $ New Bag/Syringe vancomycin (Vancocin) 750 mg in 0.9% NaCl IV 250 mL IVPB 750 mg 333.33 mL/hr 06/28/22 0725 $ New Bag/Syringe vancomycin (Vancocin) 1,250 mg in 250 mL NaCl IVPB Premix 1,250 mg 200 mL/hr Assessment Target trough:15-20 mcg/mL The vancomycin serum level reported above was drawn 9 hours after the previous dose was administered. Using pharmacokinetic calculations, the extrapolated true trough is approximately 3.3 mcg/mL Patient's trough level is below the therapeutic range on the current regimen. Ke = 0.1543 t1/2 = 4.5 Vd = 44 S.Cr is stable at this time. Plan Dosing: Patient previously supratherapeutic on 1250 mg q8hr during admission 05/30/22-06/03/22. Will adjust dose to 1000 mg q8hr. This regimen is predicted to provide a trough = 10.8 mcg/mL and AUC = 438 (goal 400-600). Monitoring: Will obtain a vancomycin trough level prior to the 5th dose on 07/01 at 1530 and adjust regimen if appropriate. Will continue to monitor patient's renal function. Please contact the [facility] pharmacy department ([phone]) with any questions. Christine Otto PharmD 06/30/2022 7:51 AM Resources: Vancomycin Protocol MOTIVE PAINT TECHNICIAN * Lola Loco RN - 06/30/2022 6:00 AM CST Problem: Fall Risk Goal: Fall risk and fall related injury risk are minimized (interventions related to the fall risk can be found in the flowsheet documentation) Outcome: Progressing Problem: Hemodynamic Status/Cardiac Output Goal: Patient has stable vital signs and fluid balance Outcome: Progressing Problem: Skin Integrity Goal: Skin integrity is maintained or improved Outcome: Progressing MOTIVE PAINT TECHNICIAN * Vinny Cruz RN - 06/29/2022 5:31 PM CST Problem: Fall Risk Goal: Fall risk and fall related injury risk are minimized (interventions related to the fall risk can be found in the flowsheet documentation) Outcome: Progressing MOTIVE PAINT TECHNICIAN * Artur Mcgraw MD - 06/29/2022 3:02 PM CST Hospital Medicine Progress Note Name: Mojgan Tabor Age: [age] year old Room: 812/01 Date Admitted: 06/27/2022 Chief Complaint: Shortness of breath Subjective: Patient was seen and examined at bedside. Denies chest pain, headaches, dizziness, shortness of breath, abdominal pain, cough. Objective: Vitals: 06/29/22 0400 06/29/22 0804 06/29/22 0904 06/29/22 1212 BP: 130/86 127/79 122/80 Pulse: 101 105 102 (!) 112 Resp: 17 18 18 18 Temp: 98.2 ??F (36.8 ??C) 97.8 ??F (36.6 ??C) 98.5 ??F (36.9 ??C) SpO2: 100% 100% 100% 97% Weight: Height: Estimated body mass index is 13.85 kg/m?? as calculated from the following: Height as of this encounter: 1.854 m (6' 1 ). Weight as of this encounter: 47.6 kg (105 lb). Physical Exam: General: Alert Skin: No rashes or lesions noted HEENT: NC,AT, PERRL, EOM Neck: Supple, no JVD Heart: RRR, normal S1 and S2 Lungs: Clear to auscultatio Abdomen: Soft, non-tender, normal bowel sounds. PEG tube in place Extremities: No edema Pulses: 2+ and symmetric MSKL: Normal bulk and tone. Intact ROM in all extremities Neuro: Alert and oriented X 1 Labs: Recent Labs Component Name 06/29/22 0709 06/27/22 2330 06/27/22 2215 06/21/22 1926 06/15/22 0603 WBC 11.1* - - - 6.8 HGB 10.6* - - - 12.8 HCT 32.4* - - - 38.1 NA 140 - 142 - 143 CL 106 - 101 - 103 BUN 11 - 17 - 12 CREATININE 0.56* - 0.78 - 0.67* PHOS - - - - 3.0 CALCIUM 9.5 - 10.3* - 9.9 PT - - 12.8 - - INR - - 1.0 - - AST - - 19 - 13 ALT - - 6 - 9 ALKPHOS - - 95 - 77 TBILI - - 0.3 - 0.2 - = values in this interval not displayed. Imaging: XR CHEST 1VW PORTABLE Result Date: 06/27/2022 IMPRESSION: Right lower lung zone consolidative opacities, which corresponds to the consolidation seen on chest CT 06/12/2022 and consistent with pneumonia and/or aspiration pneumonitis. Report drafted by Rodolfo Naidu MD (residential coordinator). I, Georgia Lees MD, PhD have personally reviewed and interpreted this examination/study. > Interpreting Provider: Georgia Lees MD, PhD on 06/27/2022 11:[address] CHEST PE W ABD PELVIS W CONT Result Date: 06/28/2022 Impression: 1.No evidence of acute pulmonary embolism. 2.Volume loss and confluent consolidation inthe right lower lobe with areas of hypoenhancement [...] unremarkable. > Dictated by Alexandro Kelsey MD (operations vice president) IAshwin MD have personally reviewed and interpreted this examination/study. > Interpreting Provider: Ashwin Read MD on 06/28/2022 8:38 AM Epilepsy, unspecified, not intractable, without status epilepticus (CMS/HCC) POA: Yes Muscle weakness (generalized) POA: Yes Hemiplegia and 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- dominant side (CMS/HCC) POA: Yes Sepsis without acute organ dysfunction (CMS/HCC) POA: Yes PAD (peripheral artery disease) (CMS/HCC) POA: Yes History of stroke POA: Yes Protein-calorie malnutrition, unspecified severity (CMS/HCC) POA: Yes Leukocytosis, unspecified type POA: Yes Tachycardia POA: Yes Hypoxia POA: Yes Acute respiratory failure with hypoxia (CMS/HCC) POA: Yes Pneumonia of right lower lobe due to infectious organism POA: Yes Assessment and Plan: 62 year old male with past medical history significant for eizures, stroke w/residual L sided deficits, dementia, Zenker diverticulum, dysphagia, HTN, BPH, PAD s/p L AKA who is presenting for hypoxia 1. Pneumonia: continue Zosyn and Vanc, procal elevated, MRSA swab pending 2. Left thigh hematoma: can not rule infection, will monitor given 3. Hx of seizure disorder: continue depakote 500mg q6h, clobazam 20mg BID, vimpat 200mg BID, Dsjvma1d BID 4. Hx of CVA: continue lipitor 5. PAD: continue asprin and lipitor 6. BPH: continue tamsulosin Lines: PIV Disposition: Inpatient Diet: Tube feed Prophylaxis: [facility] Code: FUll Artur Mcgraw MD Hospitalist, Internal Medicine MOTIVE PAINT TECHNICIAN * Rose Marie Peters RN - 06/29/2022 11:39 AM CST Case Management Initial Assessment Case Management screen completed Anticipated Discharge Date: 07/02/22 Transportation at Discharge: Ambulance Anticipated level of care at discharge: [facility] - Medicaid Anticipated level of care provider: None Prior to admission level of care: Penitentiary - Medicaid Prior to admit provider: None Discharge Goals and Plans: Plans: Discharge needs identified. See progress notes for details. Case Management to follow for discharge planning. Comments: Lives with: Other (Comment) ([facility]) Physical Limitations: Bed Bound Requires Assistance With: Mobility;Dressing;Toileting;Hygiene;Transfers;Housekeeping;Meal Preparatio n;Medication Administration;Shopping Insurance: Payer/Plan Subscriber Name Rel Member # Group # [facility] * MOJGAN TABOR Kandi Self [id number] [address] Readmission: Yes Readmission Risk: READMISSION RISK SCORE is 25 at 11:40 AM 06/29/2022. Met with spoke with patient's sisterAdriane Family Support (name and phone): Extended Emergency Contact Information Primary Emergency Contact: Adriane Hilliard [place] Relation: Sister Director Of Personnel needed? No Secondary Emergency Contact: Amarjit Tabor [facility] Relation: Brother Patient or product support representative requests care coordination reach out to family or caregiver listed above regarding discharge planning and at time of discharge? yes Patient/Family provided with list of resources? Unknown Preferred Provider / High Quality Network List given?: Unknown Reason for provider choice: Unknown Equipment at Home: Facility Equipment Furnace Cooler Referral: yes for return to facility Will continue to follow. For any questions or needs please contact: [employer] Librarian Name/Phone number: Rose Marie Peters RN [phone] MOTIVE PAINT TECHNICIAN * Ck Smiley RCP - 06/28/2022 10:39 AM CST Pt given 7% Sodium Chloride nebulizer at this time. Pt wheezing during treatment, so ALB 5mg dose given at this time. See MAR. Ck Smiley RCP Pt also transitioned to 4l/m Nc at this time. SP02 99%. Ck Smiley RCP MOTIVE PAINT TECHNICIAN Bhavesh Sofia MD - 06/28/2022 9:46 AM CST Hospital Medicine Progress Note Interval History: Reports breathing is still labored. Denies chest pain, nausea, vomiting. Has remained in bed in ED. Objective: BP (!) 168/102 Pulse 103 Temp 99.3 ??F (37.4 ??C) Resp 13 Ht 1.854 m (6' 1 ) Wt 47.6 kg (105 lb) SpO2 96% Physical Exam Constitutional: Appearance: He is ill-appearing. Cardiovascular: Rate and Rhythm: Tachycardia present. Pulmonary: Effort: Pulmonary effort is normal. No respiratory distress. Breath sounds: Rales present. No wheezing. Abdominal: General: Abdomen is flat. Bowel sounds are normal. Palpations: Abdomen is soft. Skin: General: Skin is warm and dry. Psychiatric: Mood and Affect: Mood normal. MEDICATIONS FOR CURRENT ENCOUNTER: SCHEDULED MEDICATIONS: Followed by 0.9% NaCl injection 3 mL, Intracatheter, q8h aspirin chew tablet 81 mg, Enteral Tube, QDAY atorvastatin (Lipitor) tablet 40 mg, Enteral Tube, QDAY cloBAZam (Onfi) tablet 20 mg, Enteral Tube, BID divalproex sprinkle (Depakote Sprinkle) capsule 500 mg, Enteral Tube, Every 6 Hours (03,09,15,21) fluticasone propionate (Flonase) nasal spray 1 spray, Each Nostril, QDAY folic acid (Folvite) tablet 1 mg, Enteral Tube, QDAY heparin injection 5,000 Units, Subcutaneous, TID lacosamide (Vimpat) tablet 200 mg, Enteral Tube, BID levETIRAcetam (Keppra) tablet 2,000 mg, Enteral Tube, BID piperacillin - tazobactam (Zosyn) 3.375 g in 0.9% NaCl IV 55 mL IVPB, Intravenous, q8h polyethylene glycol 3350 (Miralax) packet 17 g, Enteral Tube, QDAY sodium chloride (Inhalant) 7 % nebulizer solution 4 mL, Inhalation, QDAY tamsulosin (Flomax) capsule 0.4 mg, Oral, QDAY thiamine (Vitamin B-1) tablet 100 mg, Enteral Tube, QDAY vancomycin (Vancocin) 750 mg in 0.9% NaCl IV 250 mL IVPB, Intravenous, q12h vancomycin (Vancocin) IV dose per pharmacy, Does not apply, DIRECTED [COMPLETED] acetaminophen (Tylenol) tablet 650 mg, Enteral Tube, Now [COMPLETED] lactated ringers IV bolus, Intravenous, Once [COMPLETED] piperacillin - tazobactam (Zosyn) 3.375 g in 0.9% NaCl IV 55 mL IVPB, Intravenous, Once [COMPLETED] vancomycin (Vancocin) 1,250 mg in 250 mL NaCl IVPB Premix, Intravenous, Once CONTINUOUS MEDICATIONS: lactated ringers infusion, Intravenous, Continuous PRN MEDICATIONS: 0.9% NaCl injection 1-10 mL, Intracatheter, PRN acetaminophen (Tylenol) tablet 500 mg, Enteral Tube, q4h PRN artificial tears ophthalmic solution 1 drop, Each Eye, TID PRN bisacodyl (Dulcolax) suppository 10 mg, Rectal, QDAY PRN Relevant labs reviewed in [facility] Recent Labs Component Name 06/27/22 2330 06/21/22 1926 06/15/22 0603 03/09/22 0135 03/08/22 1455 WBC 15.8* 9.9 6.8 - 20.8* RBC 3.88* 4.21* 4.08* - 4.43 HGB 11.9* 12.9 12.8 - 14.3 HCT 36.7 40.4 38.1 - 42.9 MCV 94.6 96.0 93.4 - 96.8 PLATELET - - - - Occasional* PLTCOUNT 196 380 213 - 211 - = values in this interval not displayed. Recent Labs Component Name 06/27/22221406/21/22192506/15/22 0603 POTASSIUM 4.4 4.5 4.0 CO2 26 29 27 GLUCOSE 98 116* 120* BUN 17 14 12 CREATININE 0.78 0.58* 0.67* CALCIUM 10.3* 10.7* 9.9 AST 19 19 13 ALT 6 10 9 Relevant imaging reviewed in EPIC Assessment/Plan: Please refer to Dr. Chandra note for full A&P Will DC Levaquin. Continue Vanc and Zosyn Will repeat lactic acid. Seizure precautions, aspiration precautions. Disposition:Inpatient for ongoing care Bhavesh Easley MD [facility] Medicine 06/28/2022 MOTIVE PAINT TECHNICIAN * Carmine Marte, PharmD - 06/28/2022 4:16 AM CST Vancomycin Per Pharmacy - Initial Note Subjective Mojgan Tabor is a 62 year old male being initiated on vancomycin. Indication for anti-infective therapy: suspected infection Site of anti-infective therapy: Lower respiratory. Goal trough 15-20 mcg/mL. Objective Day of treatment: 1 Weight: 47.6 kg (105 lb) Estimated Creatinine Clearance: 67 mL/min (based on SCr of 0.78) Ht Readings from Last 1 Encounters: 06/27/22 6' 1 (1.854 m) Recent Labs Component Name 06/27/22 23306/27/22221406/21/22192506/15/22 0603 06/02/22 0453 06/01/22 0538 03/19/22 0203 03/18/22 0606 03/16/22 0619 03/15/22 0638 CREATININE - 0.78 0.58* 0.67* - 0.68* - 0.56* - - WBC 15.8* - 9.9 6.8 - 7.0 - - - - VANCTROUGH - - - - - 35.3* - <2.5* - 15.1 - = values in this interval not displayed. Radiocontrast within 72 hours The 3 most recent administrations since 06/25/2022 are shown below each listed medication. Other Order Route Dose Action Date iopamidol (Isovue 370) 76 % contrast Intravenous 100 mL $ Given - Contrast 06/28/2022 Vancomycin Administrations from JUL (last 72 hours) None Assessment Target trough: 15-20 mcg/mL A dosing regimen of 750 mg q 12 hours is predicted to achieve a trough of approximately 13.4 mcg/mL. Ke = 0.0692 hr-1 t1/2 = 10 hrs Vd = 44 L Renal function based on S Cr is stable at this time. In February of 2022, pt was able to achieve therapeutic kinetics on 1250 mg q8h. When this dosing regimen was re-trialed earlier in May, this resulted in a trough of ~35. Will empirically dose based on above-calculated kinetics. Plan Dosing: Loading Dose: 1250 mg Maintenance Dose: 750 mg, Dosing Interval: q 12 h. Monitoring Plan: Will obtain a vancomycin trough level prior to the 5th dose on 06/30 at 0400 and adjust regimen if appropriate. Will continue to monitor patient's renal function. Please contact the [facility] pharmacy department ([phone]) with any questions. Carmine Marte PharmD 06/28/2022 4:11 AM Resources: Vancomycin Protocol MOTIVE PAINT TECHNICIAN documented in this encounter H&P Notes * Migel Ramirez, - 07/03/2022 5:53 PM CST ICU HISTORY AND PHYSICAL 07/03/2022 at 5:53 PM Admission date: 06/27/2022 9:22 PM HPI // SUBJECTIVE History was obtained from patient and medical chart. Mojgan Tabor is a 62 year old male w/ PMHx significant for CVA with residual L sided defects, history of seizure disorder, dementia, dysphagia with recurrent aspiration (PEG-dependent), Zenker diverticulum, hypertension, BPH, PAD s/p L AKA d/t non-healing foot wound (02/2022), who initially presented to [facility] ED on 06/28 with complaints of hypoxia. The patient is a shelter resident at [facility]. Imaging in ED showed likely aspiration pneumonia, for which he was started on antibiotics. ENT was consulted for possible surgical intervention with his Zenker diverticulum. On 07/02 the patient was noted to have R hemithorax opacification with mediastinal shift. Pulmonary Medicine was consulted on 07/03, and due to recurring events of mucus plugging with desaturations, the patient was transferred to the ICU for further evaluation and management. Patient seen/examined at bedside. He awakens to voice. He is unable to produce a strong cough on command. On NRB with oxygen saturation 100%, non-tachypneic, no accessory muscle use. PAST MEDICAL HISTORY Patient has a past medical history of CVA (cerebral vascular accident) ([facility]), HTN (hypertension), and Seizure ([facility]). PAST SURGICAL HISTORY Patient has a past surgical history that includes leg amputation, below knee (Left, 03/15/2022) andendoscopy, upper (N/A, 03/25/2022). FAMILY HISTORY Patient's family history is not on file. SOCIAL HISTORY Patient reports that he has quit smoking. His smoking use included cigarettes. He has a 15.00 pack-year smoking history. He has never used smokeless tobacco. He reports that he does not drink alcoholand does not use drugs. ALLERGIES Allergies Allergen Reactions ??? Clonazepam Psychiatric hallucinations REVIEW OF SYSTEMS Unable to obtain due to mentation. PHYSICAL EXAM General: Thin, supraclavicular muscule wasting, no acute distress. HEENT: NC, AT, EOMi, PERRL, sclera anicteric Neck: supple, no LAD, no JVD or cartoid bruit. Cardio: RRR, Normal S1 and S2. No murmurs or rubs. Resp: Coarse breath sounds bilaterally, bilateral rhonci, coarse rales without wheezes Abdomen: soft, non tender, non distended, normal bowel sounds, no organomegaly. PEG in place. Extremities: L lower extremity AKA Skin: xerosis with small bullae noted on forearms Neurological: lethargic, following simple commands Musculoskeletal exam grossly normal, full range of motion in all three extremities. I/O: Intake/Output Summary (Last 24 hours) at 07/03/2022 1753 Last data filed at 07/03/2022 0407 Gross per 24 hour Intake 0 ml Output 1160 ml Net -1160 ml DATA I personally reviewed available imaging and labwork. ASSESSMENT Epilepsy, unspecified, not intractable, without status epilepticus ([facility]/HCC) POA: Yes Muscle weakness (generalized) POA: Yes Hemiplegia and 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- dominant side ([facility]/HCC) POA: Yes Sepsis without acute organ dysfunction ([facility]/HCC) POA: Yes PAD (peripheral artery disease) ([facility]) POA: Yes History of stroke POA: Yes Protein-calorie malnutrition, unspecified severity ([facility]) POA: Yes Leukocytosis, unspecified type POA: Yes Tachycardia POA: Yes Hypoxia POA: Yes Acute respiratory failure with hypoxia ([facility]) POA: Yes Pneumonia of right lower lobe due to infectious organism POA: Yes PLAN Neurological #. Acute encephalopathy - in the setting of dementia/delirium, presumed septic vs metabolic vs vascular vs others - Plan------ - continue antibiotics at this time - correct underlying electrolyte abnormalities - continue thiamine 100 mg - continue folate 1g daily - avoid oversedating medications - CAM-ICU delirium screening #. History of strokes with residual L hemiplegia - Plan------ - continue ASA - continue statin #. History of seizures - Plan------ - continue Depakote 500 mg q6h - continue clobazam 20 mg bid - continue Vimpat 200 mg bid - continue Keppra 2g bid Cardiovascular #. PAD s/p L AKA - Plan------ - continue ASA - wound care to follow Pulmonary #. Acute hypoxic respiratory failure - likely secondary to aspiration and poor cough - significant R sided mucus plugging on CXR 07/02 and 07/03 - likely causing desaturation events on the medical floor - Plan------ - d/w family, prefer to continue conservative measures at this time. No emergent need for intubation - aggressive pulmonary toilet/bronchial hyigene - titrate FiO2 to maintain SpO2>92% - continue antibiotics at this time (EOT 07/05) GI #. History of Zenker diverticulum - ENT following, considering possible surgical intervention - Plan------ - discuss w/ ENT Renal #. Acute kidney injury - presumed secondary to ATN/AIN - nephrology following, appreciate recommendations - Plan------ - repeat U/A 2/5 - start LR @ 75 cc/hr Endocrine Check TSH/FT4 panel Infectious Disease #. Aspiration pneumonia - with R mucus plugging causing absorption atelectasis - Plan------ - continue current antimicrobials, EOT ~2/6 - family considering therapeutic bronchoscopy #. Urinary tract infection - +LE with WBC's in urine on last U/A - Plan------ - recheck U/A with culture, no Jensen in place at this time - continue antibiotics at this time Hematology/Oncology #. Anemia, normocytic #. Thrombocytopenia - Plan------ - Hgb threshold for transfusion: <7 in absence of active bleeding - platelet count threshold for transfusion: <10 in absence of active bleeding Other No active issues. LDA: Peripheral IV Left Antecubital (Active) Placement Date/Time: 06/27/222139 Existing LDA : EMS Orientation: Left Location: Antecubital IV Catheter Size: 18 Gauge Number of days: 5 Peripheral IV Anterior;Left;Upper Arm (Active) Placement Date/Time: 06/29/222144 Orientation: Anterior;Left;Upper Location: Arm Name/Credentials of person who placed: Rhianna SIMON IV Catheter Size: 20 Gauge Technique: Ultrasound Guidance Number of start attempts: 1 Local Anesthetic Used?: No... Number of days: 3 Enteral - Percutaneous Endoscopic Gastrostomy Abdomen;Midline;Upper (Active) Placement Date/Time: 03/25/221653 Name/Credentials of person who placed: oJlynn Ann MD Type: Percutaneous Endoscopic Gastrostomy Tube Location: Abdomen;Midline;Upper Size (FR): 24 Procedure Tolerance: Well Number of days: 100 Other Wound Anterior;Lower;Proximal;Right Arm (Active) Date/Time: 06/29/221999 Orientation: Anterior;Lower;Proximal;Right Location: Arm Number of days: 3 DVT Prophylaxis: Heparin 5000 units SQ TID GI Prophylaxis: Not indicated Diet: NPO Activity: Bedrest Code status: Full Code Disposition: MICU Migel Ramirez DO, PGY-6 Pulmonary & Critical Care Fellow MOTIVE PAINT TECHNICIAN Associated attestation - Ruth Mauricio MD - 07/03/2022 10:52 PM AUTOMOTIVE PAINT TECHNICIAN I have seen and examined the patient with the resident/fellow, and I agree with the findings and plan of care as documented by the resident/fellow. Date of Service: 07/03/2022 Ruth Mauricio MD Director [employer]ment advisor Division of Pulmonary, Critical Care and Sleep Medicine [facility] Pager: [phone] * Yasmani Vigil MD - 06/28/2022 3:02 AM CST INTERNAL MEDICINE HISTORY AND PHYSICAL Name: Mojgan Tabor Admit Date and Time: 06/27/2022 9:22 PM Room: [place] [address] Chief Complaint: Chief Complaint Patient presents with ??? Shortness of Breath Pt presents to emergency department via EMS for complaints of shortness of breath. Pt is from [facility] and was found in bed with anO2 sat in the low 80s. Staff states that they placed pt on 2L with no reaction. EMS was called. Upon arrival EMS placed pt on NR at 15L. Pt placed on monitor and called light was placed in reach. HPI: Mojgan Tabor is a 62 year old male with PMH of seizures, stroke w/residual L sided deficits, dementia, Zenker diverticulum, dysphagia, HTN, BPH, PAD s/p L AKA who presents from [facility] with hypoxia. Patient AO1-2 at baseline. History taken from chart review. Earlier today patient began saturating at 92-94% on 4L NC, baseline 97% on RA. EMS placed on 15L NRB, then put on 30L 40% NFNC at [facility]. Initial labs notable for elevated lactic and WBC 15.6. CT chest showing RLL opacities concerning for pneumonia. He was recently inpatient 05/30-06/03 for aspiration pneumonia (treated for 5 days with Vanc+CTX), again 06/11 to 06/15 for fever and aspiration (given 1 day of antibiotics), and then again 06/24-06/25 for seizures. In the ED he was given 1L bolus, started on CTX + AZT for CAP, cultures and UA taken. Concern that given his recent antibiotic use, multiple admissions, and residing at a shelter that he should be treated for hospital acquired pneumonia. Medications 0.9% NaCl injection 3 mL (has no administration in time range) And 0.9% NaCl injection 1-10 mL (has no administration in time range) heparin injection 5,000 Units (has no administration in time range) atorvastatin (Lipitor) tablet 40 mg (has no administration in time range) bisacodyl (Dulcolax) suppository 10 mg (has no administration in time range) cloBAZam (Onfi) tablet 20 mg (has no administration in time range) divalproex sprinkle (Depakote Sprinkle) capsule 500 mg (has no administration in time range) lacosamide (Vimpat) tablet 200 mg (has no administration in time range) levETIRAcetam (Keppra) tablet 2,000 mg (has no administration in time range) tamsulosin (Flomax) capsule 0.4 mg (has no administration in time range) thiamine (Vitamin B-1) tablet 100 mg (has no administration in time range) vancomycin (Vancocin) IV dose per pharmacy (has no administration in time range) levoFLOXacin (Levaquin) 750 mg in 150 mL IVPB (has no administration in time range) folic acid (Folvite) tablet 1 mg (has no administration in time range) fluticasone propionate (Flonase) nasal spray 1 spray (has no administration in time range) aspirin chew tablet 81 mg (has no administration in time range) artificial tears ophthalmic solution 1 drop (has no administration in time range) polyethylene glycol 3350 (Miralax) packet 17 g (has no administration in time range) piperacillin - tazobactam (Zosyn) 3.375 g in 0.9% NaCl IV 55 mL IVPB (has no administration in timerange) piperacillin - tazobactam (Zosyn) 3.375 g in 0.9% NaCl IV 55 mL IVPB (has no administration in timerange) vancomycin (Vancocin) 1,250 mg in 250 mL NaCl IVPB Premix (has no administration in time range) Followed by vancomycin (Vancocin) 750 mg in 0.9% NaCl IV 250 mL IVPB (has no administration in time range) lactated ringers IV bolus (0 mL Intravenous Stopped 06/27/22 2255) acetaminophen (Tylenol) tablet 650 mg (650 mg Enteral Tube $ Given 06/28/22 0029) Current Facility-Administered Medications Medication Dose Route Frequency Provider Last Rate Last Admin ??? 0.9% NaCl injection 3 mL 3 mL Intracatheter q8h Yasmani Vigil MD And ??? 0.9% NaCl injection 1-10 mL 1-10 mL Intracatheter PRN Yasmani Vigil MD ??? azithromycin (Zithromax) 500 mg in 0.9% NaCl IV 250 mL IVPB 500 mg Intravenous q24h Lowell Null MD Stopped at 06/28/22 0042 ??? cefTRIAXone (Rocephin) 2,000 mg in 0.9% NaCl IV 50 mL IVPB 2 g Intravenous q24h Lowell Null MD Stopped at 06/27/22 2332 ??? heparin injection 5,000 Units 5,000 Units Subcutaneous TID Yasmani Vigil MD ??? iopamidol (Isovue 370) 76 % contrast Intravenous Contrast - Once Arthur Marinelli MD 100 mL at 06/28/22 0051 Current Outpatient Medications Medication Sig Dispense Refill ??? acetaminophen (Tylenol) 500 MG tablet 1 (one) tablet by Enteral Tube route every 6 hours as needed Maximum allowable Acetaminophen amount = 4 Grams (4000 mg) / 24 hours. (Patient taking differently: 1 (one) tablet by Enteral Tube route as needed Maximum allowable Acetaminophen amount = 4 Grams (4000 mg) / 24 hours.) ??? artificial tears ophthalmic solution Instill 1 (one) drop into both eyes 3 times daily as needed ??? aspirin (Aspirin) 81 MG chew tablet 1 (one) tablet by Enteral Tube route once daily for 30 days30 tablet 0 ??? atorvastatin (Lipitor) 40 MG tablet 1 (one) tablet by Enteral Tube route once daily ??? bisacodyl (Dulcolax) 10 MG suppository Insert 1 (one) suppository into the rectum once daily asneeded for Constipation ??? carboxymethylcellulose sodium (Refresh;Celluvisc) 1 % ophthalmic solution 1 (one) drop by Ophthalmic route once daily as needed ??? cloBAZam (Onfi) 20 MG tablet 1 (one) tablet by Enteral Tube route 2 times daily ??? divalproex DR (Depakote) 500 MG tablet Take 1 (one) tablet by mouth as directed ??? divalproex sprinkle (Depakote Sprinkle) 125 MG capsule 4 (four) capsules by Enteral Tube route Every 6 Hours (03,09,15,21) for 30 days 480 capsule 0 ??? docusate sodium (Colace) 150 MG/15ML solution Take 15 mL by mouth as needed ??? fluticasone propionate (Flonase) 50 MCG/ACT nasal spray Godwin 1 (one) spray into each nostril as needed ??? folic acid (Folvite) 1 MG tablet 1 (one) tablet by Enteral Tube route once daily ??? lacosamide (Vimpat) 200 MG tablet 1 (one) tablet by Enteral Tube route 2 times daily ??? levETIRAcetam (Keppra) 1000 MG tablet 2 (two) tablets by Enteral Tube route 2 times daily ??? levETIRAcetam (Keppra) 500 MG tablet Take 1 (one) tablet by mouth as directed ??? loratadine (Claritin) 10 MG tablet Take 1 (one) tablet by mouth once daily ??? midazolam (Nayzilam) 5 MG/0.1ML nasal spray Godwin 0.1 mL into the nose as needed for Seizures 1Each 5 ??? polyethylene glycol 3350 (Miralax) 17 g packet 17 (seventeen) g by Enteral Tube route once daily for 30 days (Patient taking differently: 17 (seventeen) g by Enteral Tube route as needed) 30 packet 0 ??? tamsulosin (Flomax) 0.4 MG capsule Take 1 (one) capsule by mouth once daily At the same time every day after a meal. Please make sure it is via enteral tube. ??? thiamine (Vitamin B-1) 100 MG tablet 1 (one) tablet by Enteral Tube route once daily ??? Valproate Sodium (Valproic Acid) 250 MG/5ML Take 5 mL by mouth as directed Allergies Allergen Reactions ??? Clonazepam Psychiatric hallucinations Past Medical History: Diagnosis Date ??? CVA (cerebral vascular accident) (CMS/HCC) ??? HTN (hypertension) ??? Seizure (CMS/HCC) Past Surgical History: Procedure Laterality Date ??? ENDOSCOPY, UPPER N/A 03/25/2022 N/A; ESOPHAGOGASTRODUODENOSCOPY (EGD) DIAGNOSTIC with PEG Placement ??? Leg Amputation, Below Knee Left 03/15/2022 Left; LEFT BKA POSS AKA No family history on file. Social History Tobacco Use ??? Smoking status: Former Packs/day: 1.00 Years: 15.00 Pack years: 15.00 Types: Cigarettes ??? Smokeless tobacco: Never Vaping Use ??? Vaping Use: Never used Substance Use Topics ??? Alcohol use: No Comment: last drink 2015 ??? Drug use: No Comment: occasional ROS: BOLDED if positive GEN: weight changes, fevers, chills, or night sweats Ear/Nose: rhinitis, epistaxis, hearing changes Throat: sore throat, dysphagia RESP: cough, sputum, shortness of breath CARDIAC: chest pain, palpitations, MENDOZA, orthopnea, edema GI: nausea/vomiting, abdominal pain, diarrhea, constipation : dysuria, hematuria MSK: arthralgias, myalgias Heme: bleeding, bruising SKIN: rash, pruritis NEURO: headache, dizziness, lightheadedness Objective: BP 128/78 Pulse (!) 114 Temp 99.3 ??F (37.4 ??C) Resp 21 Ht 1.854 m (6' 1 ) Wt 47.6 kg (105 lb) SpO2 96% Estimated body mass index is 13.85 kg/m?? as calculated from the following: Height as of this encounter: 1.854 m (6' 1 ). Weight as of this encounter: 47.6 kg (105 lb). Exam GEN:No acute distress. HFNC in place. Cachectic HEENT: PERRL. EOMI. Sclera anicteric. Oropharynx with no erythema/exudates. Moist mucous membranes. NECK: -JVD CHEST: CTABL HEART: RRR, Normal S1, S2. No murmurs/rubs/gallops. ABD: Soft, NT, ND, +BS. PEG tube in place EXT: No clubbing or edema. L AKA NEURO: A&O x 1-2, and appropriately interactive. Moving all extremities with no focal neurologic deficits. Overall weak. Data Review Recent Labs Component Name 06/27/22 23306/21/22192506/15/22 0603 WBC 15.8* 9.9 6.8 HGB 11.9* 12.9 12.8 HCT 36.7 40.4 38.1 MCV 94.6 96.0 93.4 Recent Labs Component Name 06/27/22221406/21/22192506/15/22 0603 06/14/22 0524 06/13/22 0534 CALCIUM 10.3* 10.7* 9.9 9.7 9.9 PHOS - - 3.0 2.6* 3.1 Recent Labs Component Name 06/27/22221406/21/22192506/15/22 0603 NA 142 142 143 CL 101 106 103 CO2 26 29 27 BUN 17 14 12 CREATININE 0.78 0.58* 0.67* Recent Labs Component Name 06/27/22221406/21/22192506/15/22 0603 03/03/18 1745 01/30/18 1255 11/28/17 0455 10/14/17 1349 10/13/17 1526 PROT 8.3 8.3 7.1 - 6.9 - 7.0 8.4* ALB 3.4 3.2* 2.8* - 3.7 - 3.9 4.8 ALKPHOS 95 88 77 - 75 - 86 88 AST 19 19 13 - 14 - 18 23 ALT 6 10 9 - 10 - 9 11 TBILI 0.3 0.3 0.2 - 0.4 - 0.6 1.4* DBILI - - - - 0.2 - 0.2 0.4 - = values in this interval not displayed. Recent Labs Component Name 06/27/22221405/11/22 1309 03/11/22 1059 PT 12.8 13.5 15.4* INR 1.0 1.0 1.2 Recent Labs Component Name 06/28/22 0141 06/27/22221405/30/22 1750 03/08/22 1455 12/31/21 0412 02/25/21 1134 05/15/19 0911 05/13/19 2030 01/24/19 0154 CKTOTAL - - - - 77 - 63 - 127 CKMBCK2 - - - - - - 0.8 - - TROPONINI <0.010 <0.010 <0.010 - - - <0.010 - - - = values in this interval not displayed. Radiology CT Chest PE w abd pelvis w contrast prelim read No evidence of acute pulmonary embolism. Volume loss and confluent consolidation in the right lower lobe with areas of hypoenhancement and surrounding septal thickening and ground glass opacities consistent with pneumonia. There is a 2.6 cm rim-enhancing round lesion involving the left proximal thigh hamstring musculature which is nearly isodense compared to muscle. With degree of rim enhancement findings may representan abscess however hematoma cannot be excluded. Noncalcified atherosclerotic plaque in the left superficial femoral artery with resultant focal moderate to high-grade stenosis. Moderate distention of the urinary bladder is noted, otherwise unremarkable. CT HEAD WO CONTRAST Result Date: 06/21/2022 IMPRESSION: No acute intracranial abnormality. Specifically, no acute intracranial hemorrhage as clinically queried. The report was drafted by Nash Arreola MD (residential coordinator) Georgia Thomason MD, PhD have personally reviewed and interpreted this examination/study. > Interpreting Provider: Georgia Lees MD, PhD on 06/21/2022 9:14 PM XR CHEST 1VW PORTABLE Rsult Date: 06/27/2022 IMPRESSION: Right lower lung zone consolidative opacities, which corresponds to the consolidation seen on chest CT 06/12/2022 and consistent with pneumonia and/or aspiration pneumonitis. Report drafted by Rodolfo Naidu MD (residential coordinator). Georgia Thomason MD, PhD have personally reviewed and interpreted this examination/study. > Interpreting Provider: Georgia Lees MD, PhD on 06/27/2022 11:09 PM Microbiology Microbiology Results (Displays last 21 days for this encounter ONLY) Procedure Component Value - Date/Time SARS-COV-2 (COVID-19) FLU A/B RSV PCR RAPID [[id number]] (Normal) Collected: 06/27/222222 Lab Status: Final result Specimen: Microbiology from Nasopharyngeal Updated: 06/27/222309 COVID-19 PCR Not detected Influenza A PCR Not detected Influenza B PCR Not detected RSV PCR Not detected Narrative: This nucleic acid amplification assay has been authorized by the Food and Drug administration (FDA)under an Emergency??Use Authorization (EUA).?? This test is only authorized for the duration of time the declaration that circumstances exist justifying the authorization of emergency use of in vitrodiagnostic tests for detection of SARS-CoV-2 virus and/or diagnosis of COVID-19 infection under section 564(b)(1) of the Act, 21 U.S.C 360bbb-3 (b)(1), unless the authorization is terminated or revoked sooner. Fact Sheets for this EUA assay are available upon request. CULTURE BLOOD [[id number]] Collected: 06/27/222214 Lab Status: In process Specimen: Blood Peripheral Updated: 06/27/222228 CULTURE BLOOD [[id number]] Collected: 06/27/222199 Lab Status: In process Specimen: Blood Peripheral Updated: 06/27/222228 CULTURE SPUTUM+GRAM STAIN [[id number]] Collected: 06/12/22 0337 Lab Status: Final result Specimen: Microbiology from Sputum Updated: 06/14/22 0502 Culture Heavy normal oropharyngeal heidi Gram Stain <10 per low power field Squamous epithelial cells >= 25 per low power field Polymorphonuclear cells Heavy Gram-negative diplococci Moderate Gram-positive bacilli Moderate Gram-positive cocci pairs and chains SARS-COV-2 (COVID-19) FLU A/B RSV PCR RAPID [[id number]] (Normal) Collected: 06/11/222121 Lab Status: Final result Specimen: Microbiology from Nasopharyngeal Updated: 06/11/222226 COVID-19 PCR Not detected Influenza A PCR Not detected Influenza B PCR Not detected RSV PCR Not detected Narrative: This nucleic acid amplification assay has been authorized by the Food and Drug administration (FDA)under an Emergency??Use Authorization (EUA).?? This test is only authorized for the duration of time the declaration that circumstances exist justifying the authorization of emergency use of in vitrodiagnostic tests for detection of SARS-CoV-2 virus and/or diagnosis of COVID-19 infection under section 564(b)(1) of the Act, 21 U.S.C 360bbb-3 (b)(1), unless the authorization is terminated or revoked sooner. Fact Sheets for this EUA assay are available upon request. Assessment and Plan: #SOB #Pneumonia: HAP vs CAP #leukocytosis Sepsis protocol. Given 1L (EF 40%), LR@100. Will treat for HAP given recent admissions, antibiotic use, and residing in [place]. Treat per IDSA guidelines. -Vanc + Levaquin + Zosyn (can likely dc levaquin) -UA and blood cx pending, procal ordered #epilepsy, unspecified, not intractable without status epilepticus Continue home meds: depakote 500mg q6h, clobazam 20mg BID, vimpat 200mg BID, Keppra 2g BID -per chart review, he is followed by neurology and they had been attempting to contact nursing hometo verify his seizure medications. 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, scheduled for upcoming surgery -keep NPO, tube feeds Fluids: LR@100 Nutrition: Jevity 1.5 @60ml/h + FWF 50ml q6h (on IVF), Bolus 360ml Jevity 1.5 4x/daily +75ml FWF before and after each bolus Lines: PIV Activity: ad merline Prophylaxis: HSQ Dispo: inpatient Code status: Full Code PCP: Joyce Luevano APRN-[employer]INE [employer] Yasmani Vigil MD MOTIVE PAINT TECHNICIAN documented in this encounter Procedure Notes * Sean Raymundo, - 07/08/2022 7:17 AM CST [facility] EEG REPORT Patient Name: Mojgan Tabor EEG#: [id number] Recording Start Time: 12:23 PM 07/06/2022 Epoch Start Time: 05:00 AM 07/07/2022 Epoch Stop Time: 08:51 AM 07/08/2022 Clinical History: Mojgan Tabor is a 62 year old male with encephalopathy. This continuous video EEGmonitoring is ordered to evaluate for seizures in the setting of altered mental status. Current medications Current Facility-Administered Medications Medication ??? 0.9% NaCl injection 3 mL And ??? 0.9% NaCl injection 1-10 mL ??? acetaminophen (Tylenol) tablet 500 mg ??? artificial tears ophthalmic ointment ??? artificial tears ophthalmic solution 1 drop ??? aspirin chew tablet 81 mg ??? atorvastatin (Lipitor) tablet 40 mg ??? bisacodyl (Dulcolax) suppository 10 mg ??? chlorhexidine (Peridex) 0.12 % oral solution 15 mL ??? cloBAZam (Onfi) tablet 20 mg ??? divalproex sprinkle (Depakote Sprinkle) capsule 500 mg ??? fentaNYL (PF) (Sublimaze) injection 25 mcg ??? fluticasone propionate (Flonase) nasal spray 1 spray ??? heparin injection 5,000 Units ??? lacosamide (Vimpat) tablet 200 mg ??? levETIRAcetam (Keppra) tablet 500 mg ??? oxybutynin (Ditropan) tablet 5 mg ??? pantoprazole (Protonix) packet 40 mg ??? polyethylene glycol 3350 (Miralax) packet 17 g ??? tamsulosin (Flomax) capsule 0.4 mg Description This is a continuous video EEG monitoring is 21-channels; consisting of 20 channels of EEG obtainedfrom electrodes placed on the scalp according to the international 10-20 system, T1 and T2 electrodes, and one channel of EKG monitoring. Background: Epoch Start Time: 12:23 PM 07/06/2022 Epoch Stop Time: 05:00 AM 07/07/2022 The background was symmetric. No well-developed posterior dominant rhythm was identified. Anterior-posterior gradient was absent. The background was continuous and consisted of generalized poorly-organized admixed polymorphic theta and delta frequency activity. Variability was present. Reactivity was minimal. Normal sleep architecture was not seen. Frequent spike and sharp wave discharges were seen maximal independently over the T2/F8 and Fp2/F8 electrodes. Periods of frequent blinking had no electro- cerebral correlate. Activation procedures were not performed. Epoch Start Time: 05:00 AM 07/07/2022 Epoch Stop Time: 08:51 AM 07/08/2022 The background was symmetric. No well-developed posterior dominant rhythm was identified. Anterior-posterior gradient was absent. The background was continuous and consisted of generalized poorly-organized admixed polymorphic theta and delta frequency activity. Variability was present. Reactivity was minimal. Normal sleep architecture was not seen. Frequent spike and sharp wave discharges were seen maximal independently over the T2/F8 and Fp2/F8 electrodes. Periods of frequent blinking had no electro- cerebral correlate. Activation procedures were not performed. EKG was observed throughout the recording. IMPRESSION This is an abnormal cEEG due to 1) right fronto-temporal epileptiform discharges and 2) generalizedslowing. CLINICAL CORRELATION: From 07/06-07/07 these findings indicate an area of increased cortical irritability superimposed on a diffuse encephalopathy, but are not specific to etiology. No electrographic seizures were seen duringthis epoch. From 07/07-07/08 these findings indicate an area of increased cortical irritability superimposed on a diffuse encephalopathy, but are not specific to etiology. No electrographic seizures were seen duringthis epoch. Episodes of frequent blinking had no electro-cerebral correlate. Sean Raymundo DO MOTIVE PAINT TECHNICIAN * GiannaAugust - 07/07/2022 6:51 PM CST Neurology called after putting in DC EEG order for this patient but then decided they wanted to keep it on for now. MOTIVE PAINT TECHNICIAN * Sean Raymundo DO - 07/07/2022 10:51 AM CST [facility] EEG REPORT Patient Name: Mojgan Tabor EEG#: [id number] Recording Start Time: 12:23 PM 07/06/2022 Epoch Start Time: 12:23 PM 07/06/2022 Epoch Stop Time: 05:00 AM 07/07/2022 Clinical History: Mojgan Tabor is a 62 year old male with encephalopathy. This continuous video EEGmonitoring is ordered to evaluate for seizures in the setting of altered mental status. Current medications Current Facility-Administered Medications Medication ??? 0.9% NaCl injection 3 mL And ??? 0.9% NaCl injection 1-10 mL ??? acetaminophen (Tylenol) tablet 500 mg ??? artificial tears ophthalmic ointment ??? artificial tears ophthalmic solution 1 drop ??? aspirin chew tablet 81 mg ??? atorvastatin (Lipitor) tablet 40 mg ??? bisacodyl (Dulcolax) suppository 10 mg ??? chlorhexidine (Peridex) 0.12 % oral solution 15 mL ??? cloBAZam (Onfi) tablet 20 mg ??? divalproex sprinkle (Depakote Sprinkle) capsule 500 mg ??? fentaNYL (PF) (Sublimaze) injection 25 mcg ??? fluticasone propionate (Flonase) nasal spray 1 spray ??? heparin injection 5,000 Units ??? lacosamide (Vimpat) tablet 200 mg ??? levETIRAcetam (Keppra) tablet 500 mg ??? oxybutynin (Ditropan) tablet 5 mg ??? [START ON 07/08/2022] pantoprazole (Protonix) packet 40 mg ??? polyethylene glycol 3350 (Miralax) packet 17 g ??? tamsulosin (Flomax) capsule 0.4 mg Description This is a continuous video EEG monitoring is 21-channels; consisting of 20 channels of EEG obtainedfrom electrodes placed on the scalp according to the international 10-20 system, T1 and T2 electrodes, and one channel of EKG monitoring. Background: Epoch Start Time: 12:23 PM 07/06/2022 Epoch Stop Time: 05:00 AM 07/07/2022 The background was symmetric. No well-developed posterior dominant rhythm was identified. Anterior-posterior gradient was absent. The background was continuous and consisted of generalized poorly-organized admixed polymorphic theta and delta frequency activity. Variability was present. Reactivity was minimal. Normal sleep architecture was not seen. Frequent spike and sharp wave discharges were seen maximal independently over the T2/F8 and Fp2/F8 electrodes. Activation procedures were not performed. EKG was observed throughout the recording. IMPRESSION This is an abnormal cEEG due to 1) right fronto-temporal epileptiform discharges and 2) generalizedslowing. CLINICAL CORRELATION: From 07/06-07/07 these findings indicate an area of increased cortical irritability superimposed on a diffuse encephalopathy, but are not specific to etiology. No electrographic seizures were seen duringthis epoch. Sean Raymundo DO MOTIVE PAINT TECHNICIAN * Juan Diego Lang - 07/07/2022 9:30 AM CST Fixed some electrodes updated vitals and stim pt. MOTIVE PAINT TECHNICIAN * Gianna August - 07/06/2022 12:49 PM CST MRI electrodes attached. MOTIVE PAINT TECHNICIAN * Shannon Nino DO - 07/05/2022 10:32 PM CST Images from the original note were not included. Bronchoscopy Procedure Note Pre-op Diagnosis: Atelectasis and Mucous Plugging. Surgeon: Shannon Nino DO Assistants: RT, RN, attending Sedation/Analgesia: fentanyl, propofol Procedure Details Informed consent [...] ventilation. The bronchoscope was advanced through the ETT into the trachea. Findings: Copious thick secretions with mucous plug covering orifice of right mainstem bronchus. Left side inspected and with some minimal secretions spilling over from right side. Right side suctioned with removal of thick pink-tinged mucous and old clots of blood. Multiple aliqouts of NS instilled to assisted in mucous removal. After further suctioning, right mainstem cleared and further segments visualized. Seems that right upper lobe had the most secretions with spill over into other lobes. At the end of the procedure, all major segments patent. No signs of active bleeding in airway Complications: None; patient tolerated the procedure well. Condition: stable. Attending Attestation: This procedure was performed independently of the time included in today's admission/progress note(s). This procedure was performed under the direct supervision of Dr. Miranda, who was present for the entire procedure. Shannon Nino DO 07/05/2022 11:51 PM Pulmonary & Critical Care Fellow Division of Pulmonary, Critical Care and Sleep Medicine [facility] MOTIVE PAINT TECHNICIAN Associated attestation - Ruth Mauricio MD - 07/05/2022 11:59 PM AUTOMOTIVE PAINT TECHNICIAN I was personally present for all portions of the procedure and supervised the fellow/resident. Ruth Mauricio MD Director [employer] advisor Division of Pulmonary, Critical Care and Sleep Medicine [facility] Pager: [phone] * Shannon Nino DO - 07/05/2022 10:05 PM CST Endotracheal Intubation Procedure Note Indications: mucous plugging, respiratory failure Performed by : Shannon Nino DO Assistants: RN, RT, residents, attending Procedure: Pre-oxygenation with 1.0 jennifer oxygen Ambu bag: yes Oral airway: no Sedation: etomidate Paralytic: rocuronium 60 mg Equipment: C-Mac 4 blade was used, 8.0 cuffed ETT Number of attempts: 1 ETT location confirmed by auscultation and CO2 detector ETT secured to 24 cm at the teeth Complications: None; patient tolerated the procedure well. ' Condition stable. Recommendations: CXR ordered to verify placement. Attending Attestation::This procedure was performed under direct supervision of attending Dr. Nain Nino 07/05/2022 10:05 PM MOTIVE PAINT TECHNICIAN Associated attestation - Ruth Mauricio MD - 07/05/2022 11:58 PM AUTOMOTIVE PAINT TECHNICIAN I was personally present for all portions of the procedure and supervised the fellow/resident. Ruth Mauricio MD Director [employer] advisor Division of Pulmonary, Critical Care and Sleep Medicine [facility] Pager: [phone] * Ramya Witt MD - 07/04/2022 3:54 PM CST Images from the original note were not included. Bronchoscopy Procedure Note Awake Bronch under moderate sedation. Pre-op Diagnosis: Pneumonia, Atelectasis, Hypoxemic Respiratory Failure and Mucous Plugging. Surgeon: Ramya Witt MD Assistants: RT Megan and nursing staff. Sedation/Analgesia: midazolam, fentanyl and topical lidocaine Procedure Details Informed consent was obtained for the procedure, including possible sedation. Risks of hypoxemia, lung injury/perforation, hemorrhage, infection, arrhythmia, and adverse drug reaction were discussed. Time-Out Process performed, verified patient identification, verified procedure, verified correct patient position, special equipment available. Prior to the administration of sedation, adequate oxygenation and ventilation was assured by oxygenvia face mask. The bronchoscope size 5.0 mm/2.2mm was advanced through the bronch adapter in to trachea. Trache and brionna visualized - mucous plugs removed by withdrawing the bronchoscope through the mouth with continuous suction. Bronchoscope changed from regular to large size 5.8 mm/2.8 mm to providebetter suction. Right and left main stem were serially visualized. Therapeutic aspiration performedusing saline lavage. pt tolerated well. Cough and gag present during the procedure. Distal airways not examined. Detailed inspection of airways RLL, LLL, and RML was not performed. This was a limitedawake bronch to open up the right lung. Complications: None; patient tolerated the procedure well. Condition: stable. CRITICAL CARE ATTENDING PHYSICIAN: Rmaya Witt M.D., [facility] MOTIVE PAINT TECHNICIAN * Ramya Witt MD - 07/04/2022 12:15 PM CST Post Sedation Note Mojgan Tabor is a 62 year old male born on 1960 Unit that procedure is to be preformed: ICU Pre-Procedure Diagnosis: Complete opacification of right hemithorax. Procedure: Bronch with therapeutic aspiration. Post Procedure Diagnosis: same. Complications: none Monitoring: Monitoring consisted of: heart rate, satellite project site monitor, continuous pulse oximetry, frequent blood pressure checks, level of consciousness, IV access, constant attendance by RN until patientrecovered, constant attendance by MD until patient stable and intubation and emergency airway equipment available. Response: Vital signs stable, airway patent, O2 saturations greater than 92% and suctioning of oralsecretions required. Patient Status Post Procedure: Activity: Able to move two extremeties voluntarily on command = 1 Respiration: Able to breathe deeply and cough freely = 2 Circulation: Blood pressure +/- 20mm Hg of normal = 2 Consciousness: Arousable on calling = 1 Color: 2 - color is WNL Ramon Score: 9 Temperature: Normalthermic Pain: 0 Post sedation nausea & vomiting present: no nausea Post-sedation hydration status Is adequate: Yes Total Physician Drug Administration / Monitoring Time: 30 minutes. Patient was monitored during recovery and returned to pre-procedure baseline. Discharge plan: ICU MOTIVE PAINT TECHNICIAN * Ramya Witt MD - 07/04/2022 10:30 AM CST Pre-Sedation Note Mojgan Tabor is a 62 year old male born on 1960 Unit where the procedure was preformed: MICU H&P I have reviewed this H&P written on 07/04/2022 and there are no significant changes since the time of the exam. Pertinent review of system Cardiac - no chest pain or dyspnea on exertion Resp - No distress on 6L. - poor cough. Patient status - Awake and talking in single words. Allergies Allergies Allergen Reactions ??? Clonazepam Psychiatric hallucinations Home Meds Medications Prior to Admission Medication Sig Dispense Refill ??? acetaminophen (Tylenol) 500 MG tablet 1 (one) tablet by Enteral Tube route every 6 hours as needed Maximum allowable Acetaminophen amount = 4 Grams (4000 mg) / 24 hours. (Patient taking differently: 1 (one) tablet by Enteral Tube route as needed Maximum allowable Acetaminophen amount = 4 Grams (4000 mg) / 24 hours.) ??? artificial tears ophthalmic solution Instill 1 (one) drop into both eyes 3 times daily as needed ??? aspirin (Aspirin) 81 MG chew tablet 1 (one) tablet by Enteral Tube route once daily for 30 days30 tablet 0 ??? atorvastatin (Lipitor) 40 MG tablet 1 (one) tablet by Enteral Tube route once daily ??? bisacodyl (Dulcolax) 10 MG suppository Insert 1 (one) suppository into the rectum once daily asneeded for Constipation ??? carboxymethylcellulose sodium (Refresh;Celluvisc) 1 % ophthalmic solution 1 (one) drop by Ophthalmic route once daily as needed ??? cloBAZam (Onfi) 20 MG tablet 1 (one) tablet by Enteral Tube route 2 times daily ??? divalproex DR (Depakote) 500 MG tablet Take 1 (one) tablet by mouth as directed ??? divalproex sprinkle (Depakote Sprinkle) 125 MG capsule 4 (four) capsules by Enteral Tube route Every 6 Hours (03,09,15,21) for 30 days 480 capsule 0 ??? docusate sodium (Colace) 150 MG/15ML solution Take 15 mL by mouth as needed ??? fluticasone propionate (Flonase) 50 MCG/ACT nasal spray Godwin 1 (one) spray into each nostril as [...] ??? midazolam (Nayzilam) 5 MG/0.1ML nasal spray Godwin 0.1 mL into the nose as needed for Seizures 1Each 5 ??? polyethylene glycol 3350 (Miralax) 17 g packet 17 (seventeen) g by Enteral Tube route once daily for 30 days (Patient taking differently: 17 (seventeen) g by Enteral Tube route as needed) 30 packet 0 ??? tamsulosin (Flomax) 0.4 MG capsule Take 1 (one) capsule by mouth once daily At the same time every day after a meal. Please make sure it is via enteral tube. ??? thiamine (Vitamin B-1) 100 MG tablet 1 (one) tablet by Enteral Tube route once daily Patient Active Problem List: Seizure (CMS/HCC) Cerebrovascular [...] Protein-calorie malnutrition, unspecified severity (CMS/HCC) Aspiration into lower respiratory tract, initial encounter Aspiration pneumonitis (CMS/HCC) Leukocytosis, unspecified type Tachycardia Hypoxia Acute respiratory failure with hypoxia (CMS/HCC) Pneumonia of right lower lobe due to infectious organism Vitals: 07/04/22 0700 07/04/22 0800 07/04/22 0835 07/04/22 0925 BP: 135/82 152/95 Pulse: 101 99 96 Resp: 16 20 20 Temp: 97.8 ??F (36.6 ??C) SpO2: 100% 98% 98% Weight: Height: Status Test none Anesthesis History no past endotracheal intubation History of airway problems: Oxygen saturation less than 91% on room air Expected Level: Minimal Sedation- pt's mental status is compromised plan is to use minimal sedationand work with topical lidocaine as much as possible to allow therapeutic aspiration of the right lung. Indication: Sedation is required to allow for Bronch of complete opacification of right hemithorax. Consent: Risks, benefits and alternatives were discussed with power of in classroom tutor (Sister) and consent for procedure was obtained. PO Intake: Regular Meal > 8 hours ASA Class: Class 3 - Severe Systemic Disease, Definite Functional Limitations Mallampati: Grade 2: Soft palate, base of uvula, tonsillar pillars, and portion of posterior pharyngeal wall visible. Medication: Conscious Sedation, topical lidocaine and versed and fentanyl (smallest possible dose needed) Immediate Pre-Procedure Assessment: Review of vital signs:Yes Patient reports or my clinical evaluation indicates there have been no changes in the patient's condition prior to the start of the procedure: Yes MOTIVE PAINT TECHNICIAN documented in this encounter Consult Notes * Caio Oliveira - 07/15/2022 9:28 AM CST New patient to caseload in the absence of the primary Furnace Cooler Chart reviewed Not medically ready to transition to next level of care Patient will have surgery today for Transoral vs transvervical Zenkers diverticulectomy 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 ([address] [id number]) Please re-consult Furnace Cooler when disposition needs have been identified CLARITA Rico MBA Covering Furnace Cooler [phone] 07/15/2022 9:29 AM MOTIVE PAINT TECHNICIAN * Corina Luther MD - 07/06/2022 9:46 AM CSTAssociated Order(s): IP CONSULT TO NEUROLOGY; IP CONSULT TO NEUROLOGY Neurology Consult Note Patient: Mojgan Tabor Age: [age] year old Admission Date and Time: 06/27/2022 Hospital length of stay: 8 Subjective Reason for consult: Concerns about seizure and management of AED medications History of Presenting Illness: Mojgan Tabor is a 62 year old male with past medical history of hypertension, hyperlipidemia, R ANESTHESIA 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 His imaging was concerning for aspiration pneumonia and zenker diverticulum. ENTwas consulted for the Zenker diverticulum and they recommended outpatient procedure. For his aspiration pneumonia and right hemithorax opacification with mediastinal shift, pulmonology was consulted.He was transferred to MICU due to recurring events of mucus plugging with desaturations. He underwent awake bronchoscopy with suction of mucus plugs and had initial radiographic improvement and also in oxygenation on 07/05/2022. He is currently on Levetiracetam 2 grams BID, Lacosamide 200 mg BID, Clobazam 20 mg BID, Depakote 500 mg Q6H. Neurology was consulted for eyelid blinking movement as well as orofacial movements notedby the primary team. As per the bedside nurse, patient was taken off propofol yesterday and that iswhen they started noticing these movements. There is no obvious shaking or abnormal movement anywhere. Bedside 2 mg ativan was given which resulted resolving in eye blinking movement. Of note, patient was noted to have SAMANTHA and primary team requested assistance in management of AED. Past Medical History No history on file. Past Medical History: Diagnosis Date ??? CVA (cerebral vascular accident) (CMS/HCC) ??? HTN (hypertension) ??? Seizure (CMS/HCC) Past Surgical History: Procedure Laterality Date ??? ENDOSCOPY, UPPER N/A 03/25/2022 N/A; ESOPHAGOGASTRODUODENOSCOPY (EGD) DIAGNOSTIC with PEG Placement ??? Leg Amputation, Below Knee Left 03/15/2022 Left; LEFT BKA POSS AKA Allergies Allergies Allergen Reactions ??? Clonazepam Psychiatric hallucinations Family History FMHx: Unable to obtain family history due to altered mental status/non availability of family members for collateral info. Social History Social history couldn't be obtained due to altered mental status/non availability of family membersfor collateral info. Review of Systems Patient intubated, unable to review Objective BP 126/81 Pulse 85 Temp 99 ??F (37.2 ??C) (Oral) Resp 13 Ht 1.854 m (6' 1 ) Wt 57.5 kg (126 lb 12.2 oz) SpO2 99% Temp (30hrs) Max:99.7 ??F (37.6 ??C) Body mass index is 16.72 kg/m??. Exam: Awake, not following commands Intubated and in restraints in upper extremities Pupils 4 mm reactive bilaterally Eyelid twitching movement noted bilaterally without any obvious nystagmus Cannot appreciate any facial asymmetry due to the tube Tone normal decreased bulk withdraws from pain in all 4 extremities Labs: Pending Valproic acid Pending Clobazam level Neuroimaging: CT head 06/21/2022: Unchanged hypodense area of the right medial occipital lobe, consistent with a chronic right posterior cerebral artery (ANESTHESIA ATTENDING) vascular territory infarct. Unchanged small chronic lacunes of the left cerebellum, left paramedian isabella, thalami, and left basal ganglia. Scattered and confluent white matter hypodensities, which are nonspecific but likely represents the sequela of chronic microangiopathic change. Moderate generalized parenchymal volume loss with ex vacuo dilation of the ventricles. Re-demonstrated complete opacification of the right maxillary sinus with mixed density material extending into the right nasal cavity through an accessory ostium, which may represent an antrochoanal polyp. Mild mucosal thickening of the ethmoidair cells. Incidentally noted left middle nasal turbinate cory bullosa versus lamella. Healed fracture deformity of the left lamina papyracea; otherwise, orbits are unremarkable. Mastoids demonstrate no significant abnormality. Re-demonstrated left paramidline occipital scalp ovoid lesion measuring 3.4 x 1.3 x 0.6 cm (CC x TV x AP; , 08/15), which favors a sebaceous or epidermal inclusion cyst. Soft tissue opacification of the right greater than left external auditory canals, consistent with cerumen. Moderate calcific atherosclerosis of the carotid siphons. Assessment and Plan: Assessment: Mojgan Tabor is 62 year old gentleman with refractory epilepsy, R ANESTHESIA ATTENDING infarct (residual left sided weakness), HTN, HLD, alcohol abuse and cervical osteoarthritis who is currently admitted for hypoxicrespiratory failure secondary to community acquired pneumonia. Patient's eyelid blinking which is re sponsive to benzodiazepine can be consistent with eyelid myoclonus vs seizure. Plan: - Would recommend starting Continuous video EEG (order placed) - Decrease the Levetiracetam to 500 mg BID (in light of his SAMANTHA) - Ordered Valproate level - Continue Clobazam 20 mg BID - Continue Lacosamide 200 mg BID - Continue Depakote 500 mg Q6H - Monitor electrolytes and replete as needed (Keep Mg>2, Phos>4 and normal sodium) - Please see attending attestation for update of the plan Discussed with Neurocritical Attending Physician, Dr. Macario Luther MD Neurology Resident. MOTIVE PAINT TECHNICIAN Associated attestation - Nurys Sorto MD - 07/06/2022 7:19 PM AUTOMOTIVE PAINT TECHNICIAN I have seen and examined the patient with the resident and I agree with the findings and plan of care as documented by the resident except for below: Plan of care for today: Hx of refractory epilepsy currently admitted for hypoxic respiratory failure and CAP. Neurology is consulted for status epilepticus rule out given clinical eye blinking. Cont all curent AEDs Check VPA level cEEG Date of Service: 07/06/2022 Nurys Sorto MD Neurologic Critical Care Attending * Melany Tran RD/NOLAN - 07/06/2022 9:12 AM CSTAssociated Order(s): IP CONSULT TO NUTRITIONAL SERV Nutrition Re-Assessment Brief Synopsis: Patient is dx with malnutrition; ; Specific criteria can be found in assessment below Nutrition Plan: NPO Alter TF to below Start TF at 20 ml/hr, advance 10 ml q 24 hrs to be at goal by day 4 of intubation. *ESPEN guidelines recommend slow advancement rate for ICU patients* TF recommendations ON propofol- current rate of 7.08ml/hr providing 187 lipid kcal- Promote with goal rate of 50ml/hr. Provides 1387 kcals, 75 g Pro, 156 g carbohydrate, 1007 ml free water +50 ml q 6 hrs free water flush or per MD if on IVF +100 ml q4 hrs free water flush or per MD if not on additional fluids TF recommendations OFF propofol- Promote at goal of 55 ml/hr. Provides 1320 kcal, 83 g protein, 172 g carbohydrate, 1107 ml free water. +50 ml q 6 hrs free water flush or per MD if on IVF +100 ml q4 hrs free water flush or per MD if not on additional fluids Recommendations to Physician: See above Replete K Comments: Pt consulted per vent protocol. Pt receiving Propofol. Pt receiving Jevity 1.5 @20ml/hr, will switch TF to formula that is appropriate for ventilated patients. x3 stool today per EMR. Receiving dextrose and thiamin. Pt discussed this AM in interdisciplinary rounds. Assessment: Med/Surg History and Clinical Diagnoses: 62 year old male with PMH of seizures, stroke w/residual Lsided deficits, dementia, Zenker diverticulum, dysphagia, HTN, BPH, PAD s/p L VANIA [facility] Diet order accuracy Current diet order: NPO Current tube feeding order: Jevity 1.5 @20ml/hr Nutrition recommendation: alter/change nutrition order P.O.Intake for the past 48 hrs:No data recorded Food Allergies: No known food allergies GI Concerns: None Chewing/Swallowing: Other (Comment) (intubated) Pain affecting intake: No Admission weight: Weight: 47.6 kg (105 lb) (06/27/222130) Recent Weights/Methods 06/11/2022201506/21/2022 1910 06/25/2022 1117 06/27/2022 2131 07/01/2022 0400 07/04/2022 0000 07/05/2022 0000 07/06/2022 0400 Weight: 68 kg (150 lb) 68 kg (150 lb) 47.6 kg (105 lb) 47.6 kg (105 lb) 59 kg (130 lb) 60 kg (132 lb 4.4 oz) 59 kg (130 lb 1.1 oz) 57.5 kg (126 lb 12.2 oz) Weight Method (Utilize Scales): -- Estimated -- Stated -- Bedscale Bedscale Bedscale Wt Comments: reviewed, monitoring. Height: 185.4 cm (6' 1 ) IBW/lb (Calculated) Male: 184 , Malnutrition Etiology: Malnutrition in the context of: chronic disease, Malnutrition Severity: Severe BMI: Body mass index is 16.72 kg/m??. GI Concerns: None Nutrition Focused Physical Assessment: Loss of Subcutaneous Fat Orbital: Severe Buccal: Severe Chest/Ribs: Severe Muscle Loss Temples (Temporalis Muscle): Severe Clavicles (Pectoralis & Deltoids): Severe Shoulders (Deltoids): Severe Laboratory values reviewed. Recent Labs Component Name 07/06/22 0349 07/05/229 07/05/22 0226 07/01/22 1634 06/30/22 1039 06/29/22 0709 06/27/22 2215 06/21/22 1926 BUN 34* 37* 40* - 7 - 17 14 CREATININE 2.76* 3.08* 3.43* - 0.58* - 0.78 0.58* NA 150* 151* 151* - 140 - 142 142 POTASSIUM 2.7* 3.5 4.1 - 4.0 - 4.4 4.5 CL 115* 113* 115* - 107 - 101 106 CO2 21* 26 25 - 24 - 26 29 GLUCOSE 108 109 83 - 115 - 98 116* CALCIUM 7.6* 9.1 9.0 - 9.5 - 10.3* 10.7* PROT - - - - 6.2 - 8.3 8.3 ALB - - - - 2.2* - 3.4 3.2* TBILI - - - - 0.3 - 0.3 0.3 ALKPHOS - - - - 65 - 95 88 ALT - - - - 5 - 6 10 AST - - - - 13 - 19 19 ANIONGAP 17 16 15 - 13 - 19* 12 BCR 12 12 12 - 12 - 22 24* OSMOLALITY 318* 321* 321* - 289 - 296 295 AGRATIO - - - - 0.6* - 0.7* 0.6* EGFR 25* 22* 20* - >90 - >90 >90 - = values in this interval not displayed. Medications noted. Current Facility-Administered Medications Medication ??? 0.9% NaCl injection 3 mL And ??? 0.9% NaCl injection 1-10 mL ??? acetaminophen (Tylenol) tablet 500 mg ??? acetylcysteine (Mucomyst) 20 % solution 600 mg ??? albuterol-ipratropium (Duo-Neb) nebulizer solution 3 mL ??? artificial tears ophthalmic ointment ??? artificial tears ophthalmic solution 1 drop ??? aspirin chew tablet 81 mg ??? atorvastatin (Lipitor) tablet 40 mg ??? bisacodyl (Dulcolax) suppository 10 mg ??? chlorhexidine (Peridex) 0.12 % oral solution 15 mL ??? cloBAZam (Onfi) tablet 20 mg ??? dextrose 5 % infusion ??? divalproex sprinkle (Depakote Sprinkle) capsule 500 mg ??? fluticasone propionate (Flonase) nasal spray 1 spray ??? folic acid (Folvite) tablet 1 mg ??? heparin injection 5,000 Units ??? lacosamide (Vimpat) tablet 200 mg ??? levETIRAcetam (Keppra) tablet 2,000 mg ??? pantoprazole (Protonix) injection 40 mg ??? polyethylene glycol 3350 (Miralax) packet 17 g ??? propofol (Diprivan) infusion ??? sodium chloride (Inhalant) 7 % nebulizer solution 4 mL ??? tamsulosin (Flomax) capsule 0.4 mg ??? thiamine (Vitamin B-1) tablet 100 mg Skin/Wound: Exceptions (right arm) Estimated Energy Needs: KCAL: 2061-4002 (20-25kcal/kg of ABW) Protein (g): 70-87 (1.2-1.5gm/kg of ABW) Fluid (ml): 1 ml/kcal Needs based on: Kcal/kg- (Comment) (58kg of ABW) Recommended Access Route: TF Education needed: None Education Provided: Not appropriate Nutrition Care Process (2) Nutrition Diagnostic Statement (2): Malnutrition related to:: inadequate protein-energy intake as evidenced by:: loss of muscle mass;loss of subcutaneous fat Nutrition Diagnostic Statement Progress: Nutrition problem continues Nutrition Intervention: Enteral nutrition: Monitoring: GI,TF,WT, labs, medications Evaluation: Nutrition Goal: Total intake will meet estimated nutrient needs Nutrition Goal Timeframe: Throughout stay Nutrition Goal Progress: Continue with current goal Ascom [id number] MOTIVE PAINT TECHNICIAN * Melany Tran RD/LDN - 07/05/2022 10:06 AM CSTAssociated Order(s): IP CONSULT TO NUTRITIONAL SERV Nutrition Re-Assessment Brief Synopsis: Patient is at Nutrition Risk; Specific criteria can be found in assessment below Nutrition Plan: NPO Alter formula to below as facility is out of TwoCal HN: TF considerations: 1. Start at 20ml/h and increase by 10ml/h q4h until goal 2. Do not hold unless residuals >500 as recommended by ASPEN. 3. For critical care, If residuals >200, monitor for symptoms of intolerance. 4. Signs of intolerance include: lytes>NL, diarrhea, abdominal pain or distention. 5. Head of bed > 30?? Jevity 1.5 at 55 ml/hr+ 1 prostat packet. Provides 2080 kcal, 99 g protein, 295 g carbohydrate, 1003 ml free water. +120 ml q4 hrs free water flush Recommendations to Physician: See above, once TwoCal HN is out alter TF to above Comments: Pt consulted for tube feeding recommendations. Pt currently receiving TwoCalHN @ 60ml/hr.Facility is currently out of formula-recommend finishing current bottle of formula and resuming above regimen. Formula will be changed back once TwoCal HN is back in stock. Encourage HOB elevated at all time due to increased risk for aspiration. Bolus TF recommendations not recommended at this time. Na 151, recommend increasing FWF. Last BM 07/04. RD will continue to follow. Assessment: Med/Surg History and Clinical Diagnoses: 62 year old male with PMH of seizures, stroke w/residual Lsided deficits, dementia, Zenker diverticulum, dysphagia, HTN, BPH, PAD s/p L AKA [facility] Diet order accuracy Current diet order: NPO Current tube feeding order: TwoCal HN @ 60ml/hr Nutrition recommendation: alter/change nutrition order P.O.Intake for the past 48 hrs:No data recorded Food Allergies: No known food allergies GI Concerns: None Chewing/Swallowing: Dysphagia (w/ PEG tube) Pain affecting intake: No Admission weight: Weight: 47.6 kg (105 lb) (06/27/222130) Recent Weights/Methods 06/01/2022 1200 06/11/2022 2016 06/21/2022 1910 06/25/2022 1117 06/27/2022 2131 07/01/2022 0400 07/04/2022 0000 07/05/2022 0000 Weight: 59.5 kg (131 lb 2.8 oz) 68 kg (150 lb) 68 kg (150 lb) 47.6 kg (105 lb) 47.6 kg (105 lb) 59 kg (130 lb) 60 kg (132 lb 4.4 oz) 59 kg (130 lb 1.1 oz) Weight Method (Utilize Scales): -- -- Estimated -- Stated -- Bedscale Bedscale BMI: Body mass index is 17.16 kg/m??. BMI Range: Underweight Wt Comments: reviewed, weight trending up Height: 185.4 cm (6' 1 ) IBW/lb (Calculated) Male: 184 , Laboratory values reviewed. Recent Labs Component Name 07/05/22 0226 07/04/22 0145 07/03/22 0405 07/01/22 1634 06/30/22 1039 06/29/22 0709 06/27/22 2215 06/21/22 1926 BUN 40* 38* 32* - 7 - 17 14 CREATININE 3.43* 3.55* 3.16* - 0.58* - 0.78 0.58* NA 151* 148* 144 - 140 - 142 142 POTASSIUM 4.1 4.6* 4.7* - 4.0 - 4.4 4.5 CL 115* 112* 110* - 107 - 101 106 CO2 25 23 27 - 24 - 26 29 GLUCOSE 83 90 86 - 115 - 98 116* CALCIUM 9.0 9.4 9.1 - 9.5 - 10.3* 10.7* PROT - - - - 6.2 - 8.3 8.3 ALB - - - - 2.2* - 3.4 3.2* TBILI - - - - 0.3 - 0.3 0.3 ALKPHOS - - - - 65 - 95 88 ALT - - - - 5 - 6 10 AST - - - - 13 - 19 19 ANIONGAP 15 18 12 - 13 - 19* 12 BCR 12 11 10 - - 22 24* OSMOLALITY 321* 315* 304* - 289 - 296 295 AGRATIO - - - - 0.6* - 0.7* 0.6* EGFR 20* 19* 22* - >90 - >90 >90 - = values in this interval not displayed. Medications noted. Current Facility-Administered Medications Medication ??? 0.9% NaCl injection 3 mL And ??? 0.9% NaCl injection 1-10 mL ??? acetaminophen (Tylenol) tablet 500 mg ??? albuterol-ipratropium (Duo-Neb) nebulizer solution 3 mL ??? artificial tears ophthalmic solution 1 drop ??? aspirin chew tablet 81 mg ??? atorvastatin (Lipitor) tablet 40 mg ??? bisacodyl (Dulcolax) suppository 10 mg ??? cloBAZam (Onfi) tablet 20 mg ??? dextrose 5 % infusion ??? dextrose 5 % infusion ??? divalproex sprinkle (Depakote Sprinkle) capsule 500 mg ??? fluticasone propionate (Flonase) nasal spray 1 spray ??? folic acid (Folvite) tablet 1 mg ??? heparin injection 5,000 Units ??? lacosamide (Vimpat) tablet 200 mg ??? levETIRAcetam (Keppra) tablet 2,000 mg ??? pantoprazole (Protonix) injection 40 mg ??? polyethylene glycol 3350 (Miralax) packet 17 g ??? sodium chloride (Inhalant) 7 % nebulizer solution 4 mL ??? tamsulosin (Flomax) capsule 0.4 mg ??? thiamine (Vitamin B-1) tablet 100 mg ??? vancomycin (Vancocin) IV dose per pharmacy Skin/Wound: Exceptions (right arm) Estimated Energy Needs: KCAL: 5075-2623 (30-35 kcal/kg ABW) Protein (g): 100 (1.2 g/kg IBW) Fluid (ml): 1 ml/kcal Needs based on: Kcal/kg- (Comment) (59kg) Recommended Access Route: TF Education needed: None Education Provided: Not appropriate Nutrition Care Process (1) Nutrition Diagnostic Statement: Inadequate oral intake related to:: decreased ability to consume or tolerate food and/or fluids due to illness as evidenced by:: need for parenteral or enteral intake to supplement oral intake Nutrition Diagnostic Statement Progress: Nutrition problem continues Nutrition Intervention: Enteral nutrition: Monitoring: GI, TF, WT, labs, medications Evaluation: Nutrition Goal: Enteral/Parenteral Nutrition prescription will be consistent with estimated nutrient needs Nutrition Goal Timeframe: Ongoing Nutrition Goal Progress: Continue with current goal Ascom [id number] MOTIVE PAINT TECHNICIAN * Lucien Alaniz MD - 07/03/2022 2:47 PM CSTAssociated Order(s): IP CONSULT TO NEPHROLOGY [facility] Department of Nephrology History & Physical Date of Admission: 06/27/2022 Length of Stay: 5 Date of Service: 07/03/2022 Consulting Service: Medicine team. Reason for Consult: SAMANTHA HISTORY: 62 yr old man with cognitive impairment, Hx of CVA with L-sided weakness, dysphagia, HTN, L AKA (s/t PAD) who is admitted with hypoxic respiratory failure s.t CAP. Initiated on empiric broad spectrumparenteral coverage (Vanc and zosyn). His BMI is ~ 17 with a baseline S.Cr 0.5 - 0.7. No to have a decline in renal function (non-oliguric) since 06-30-22. No hemodynamic instability noted throughout hospitalization. Received iodinated contrast (06-28-22). There is one supra therapeutic vancomycin trough 25.2 (06-30-22). He is non-oliguric. Non- conversant. UA with +1 proteinuria, 6-10 pyuria. FeNa 2.1% (doubt it veracity in non-oliguric states). Review of Systems: Unable to review systems. Past Medical History: Diagnosis Date ??? CVA (cerebral vascular accident) (CMS/HCC) ??? HTN (hypertension) ??? Seizure (CMS/HCC) Past Surgical History: Procedure Laterality Date ??? ENDOSCOPY, UPPER N/A 03/25/2022 N/A; ESOPHAGOGASTRODUODENOSCOPY (EGD) DIAGNOSTIC with PEG Placement ??? Leg Amputation, Below Knee Left 03/15/2022 Left; LEFT BKA POSS AKA No family history on file. Social History: [...] Social Determinants of Health Financial Resource Strain: Not on file Food Insecurity: No Food Insecurity ??? Worried About Running Out of Food in the Last Year: Never true ??? Ran Out of Food in the Last Year: Never true Transportation Needs: Not on file Stress: Not on file Housing Stability: Not on file Allergies: Allergies Allergen Reactions ??? Clonazepam Psychiatric hallucinations Home Medications: No current facility-administered medications on file prior to encounter. Current Outpatient Medications on File Prior to Encounter Medication Sig Dispense Refill ??? acetaminophen (Tylenol) 500 MG tablet 1 (one) tablet by Enteral Tube route every 6 hours as needed Maximum allowable Acetaminophen amount = 4 Grams (4000 mg) / 24 hours. (Patient taking differently: 1 (one) tablet by Enteral Tube route as needed Maximum allowable Acetaminophen amount = 4 Grams (4000 mg) / 24 hours.) ??? artificial tears ophthalmic solution Instill 1 (one) drop into both eyes 3 times daily as needed ??? aspirin (Aspirin) 81 MG chew tablet 1 (one) tablet by Enteral Tube route once daily for 30 days30 tablet 0 ??? atorvastatin (Lipitor) 40 MG tablet 1 (one) tablet by Enteral Tube route once daily ??? bisacodyl (Dulcolax) 10 MG suppository Insert 1 (one) suppository into the rectum once daily asneeded for Constipation ??? carboxymethylcellulose sodium (Refresh;Celluvisc) 1 % ophthalmic solution 1 (one) drop by Ophthalmic route once daily as needed ??? cloBAZam (Onfi) 20 MG tablet 1 (one) tablet by Enteral Tube route 2 times daily ??? divalproex DR (Depakote) 500 MG tablet Take 1 (one) tablet by mouth as directed ??? divalproex sprinkle (Depakote Sprinkle) 125 MG capsule 4 (four) capsules by Enteral Tube route Every 6 Hours (03,09,15,21) for 30 days 480 capsule 0 ??? docusate sodium (Colace) 150 MG/15ML solution Take 15 mL by mouth as needed ??? fluticasone propionate (Flonase) 50 MCG/ACT nasal spray Godwin 1 (one) spray into each nostril as [...] ??? midazolam (Nayzilam) 5 MG/0.1ML nasal spray Godwin 0.1 mL into the nose as needed for Seizures 1Each 5 ??? polyethylene glycol 3350 (Miralax) 17 g packet 17 (seventeen) g by Enteral Tube route once daily for 30 days (Patient taking differently: 17 (seventeen) g by Enteral Tube route as needed) 30 packet 0 ??? tamsulosin (Flomax) 0.4 MG capsule Take 1 (one) capsule by mouth once daily At the same time every day after a meal. Please make sure it is via enteral tube. ??? thiamine (Vitamin B-1) 100 MG tablet 1 (one) tablet by Enteral Tube route once daily Hospital Medications: ??? 0.9% NaCl 3 mL Intracatheter q8h ??? albuterol-ipratropium 3 mL Inhalation q4h WA ??? aspirin 81 mg Enteral Tube QDAY ??? atorvastatin 40 mg Enteral Tube QDAY ??? cloBAZam 20 mg Enteral Tube BID ??? divalproex sprinkle 500 mg Enteral Tube Every 6 Hours (03,09,15,21) ??? fluticasone propionate 1 spray Each Nostril QDAY ??? folic acid 1 mg Enteral Tube QDAY ??? heparin 5,000 Units Subcutaneous TID ??? lacosamide 200 mg Enteral Tube BID ??? levETIRAcetam 2,000 mg Enteral Tube BID ??? piperacillin-tazobactam 3.375 g Intravenous q8h ??? polyethylene glycol 3350 17 g Enteral Tube QDAY ??? tamsulosin 0.4 mg Oral QDAY ??? thiamine 100 mg Enteral Tube QDAY ??? vancomycin (VANCOCIN) IV dose per pharmacy Does not apply DIRECTED PRN Meds: ??? SALINE LOCK, INSERT AND MAINTAIN AND 0.9% NaCl AND 0.9% NaCl ??? acetaminophen ??? artificial tears ??? bisacodyl OBJECTIVE: Vitals: 07/03/22 0957 07/03/22 1130 07/03/22 1147 07/03/22 1401 BP: 159/77 144/80 Pulse: 95 98 109 Resp: 20 20 20 20 Temp: 98 ??F (36.7 ??C) SpO2: 96% (!) 85% 93% 92% Weight: Height: Estimated body mass index is 17.15 kg/m?? as calculated from the following: Height as of this encounter: 1.854 m (6' 1 ). Weight as of this encounter: 59 kg (130 lb). Intake/Output Summary (Last 24 hours) at 07/03/2022 1447 Last data filed at 07/03/2022 0407 Gross per 24 hour Intake 0 ml Output 1160 ml Net -1160 ml Physical Exam: Physical Exam Constitutional: Appearance: He is ill-appearing. HENT: Head: Normocephalic. Mouth/Throat: Mouth: Mucous membranes are dry. Cardiovascular: Rate and Rhythm: Normal rate and regular rhythm. Pulses: Normal pulses. Heart sounds: Normal heart sounds. No murmur heard. Pulmonary: Breath sounds: Wheezing and rhonchi present. Abdominal: General: Abdomen is flat. Palpations: Abdomen is soft. Comments: G- tube. Musculoskeletal: Cervical back: Neck supple. Comments: LUE edema. Skin: General: Skin is warm and dry. Neurological: Comments: Somnolent. LABS: CBC: Recent Labs Component Name 07/03/22 0405 07/02/22 0531 07/01/22 1634 WBC 6.9 5.7 7.0 HGB 9.6* 9.8* 9.4* HCT 29.6* 30.2* 28.9* MCV 95.5 95.6 94.4 BMP: Recent Labs Component Name 07/03/22 0405 07/02/22 0531 07/01/22 1634 NA 144 144 143 CL 110* 111* 109* CO2 27 24 26 BUN 32* 19 12 CREATININE 3.16* 1.99* 1.05 Recent Labs Component Name 07/03/22 0405 07/02/22 0531 07/01/22 1634 06/21/22 1926 06/15/22 0603 06/14/22 0524 06/13/22 0534 CALCIUM 9.1 9.1 9.0 - 9.9 9.7 9.9 PHOS - - - - 3.0 2.6* 3.1 - = values in this interval not displayed. LFT: Recent Labs Component Name 06/30/22 1039 06/27/22 2215 06/21/22 1926 03/03/18 1745 01/30/18 1255 11/28/17 0455 10/14/17 1349 PROT 6.2 8.3 8.3 - 6.9 - 7.0 ALB 2.2* 3.4 3.2* - 3.7 - 3.9 ALKPHOS 65 95 88 - 75 - 86 AST 13 19 19 - 14 - 18 ALT 5 6 10 - 10 - 9 TBILI 0.3 0.3 0.3 - 0.4 - 0.6 DBILI 0.2 - - - 0.2 - 0.2 IBILI 0.1 - - - 0.2 - 0.4 - = values in this interval not displayed. Recent Labs Component Name 06/27/22 2215 LIPASE 18 Recent Labs Component Name 06/12/22 0337 TSH 2.755 Coagulation: Recent Labs Component Name 06/27/22 2215 05/11/22 1309 03/11/22 1059 PT 12.8 13.5 15.4* INR 1.0 1.0 1.2 Cardiac markers: Recent Labs Component Name 07/01/22 1634 06/28/22 0141 06/27/22 2215 05/30/22 1750 03/08/22 1455 12/31/21 0412 02/25/21 1134 05/15/19 0911 CKTOTAL 42 - - - - 77 - 63 TROPONINI - <0.010 <0.010 <0.010 - - - <0.010 - = values in this interval not displayed. ABG: Recent Labs Component Name 10/13/22 1059 [id number] IMAGING: No results found. ASSESSMENT: 62 yr old man with cognitive impairment, Hx of CVA with L-sided weakness, dysphagia, HTN, L AKA (s/t PAD) who is admitted with hypoxic respiratory failure s.t CAP. Initiated on empiric broad spectrumparenteral coverage (Vanc and zosyn). His BMI is ~ 17 with a baseline S.Cr 0.5 - 0.7. No to have a decline in renal function (non-oliguric) since 06-30-22. No hemodynamic instability noted throughout hospitalization. Received iodinated contrast (06-28-22). There is one supra therapeutic vancomycin trough 25.2 (06-30-22). He is non-oliguric. Non- conversant. UA with +1 proteinuria, 6-10 pyuria. FeNa 2.1% (doubt it veracity in non-oliguric states). SAMANTHA with a S.Cr 3.16 (actual renal function may be worse than suggested by S.Cr given sarcopenia and L AKA). Likely multifactorial etiology (CAN, ? Van nephrotoxicity). Suggest repeating UA tomorrow. Consider renal US. Will perform manual urine microscopy when able. Consider starting IVF (LR or NS) @ 75 ml/hour. Daily renal panel. Strict I and Os. Will continue to follow. Pt d/w Dr Matt Fisher. Lucien Alaniz MD Nephrology Fellow 07/03/2022 2:47 PM MOTIVE PAINT TECHNICIAN Associated attestation - Luiz Henderson MD - 07/03/2022 5:38 PM AUTOMOTIVE PAINT TECHNICIAN I have seen and examined the patient with house-staff on rounds at 12:20 PM. I agree with the house-staff note with the additions/modificiations listed below. 62 yr old man with cognitive impairment, Hx of CVA with L-sided weakness, dysphagia, HTN, L AKA, admitted with hypoxic respiratory failure. Patient has received empiric vancomycin and Zosyn. Evolved with non-oliguric SAMANTHA with an increase in serum creatinine from a BL of 0.6-0.8 to 3.16 over the last 3 days. Possible risk factors include IV contrast and use of vancomycin (elevated trugh level on 06/30/3022)-Zosyn. No apparent significant alterations in hemodynamics. Urine FeNa is elevated suggestive of intrinsic renal disease. Other findings include protein 1+, and WBC 6-10 (no WBC on 06/28/2022). Consider acute nephrotoxicity, interstitial nephropathy. - Suggest IV fluids. - Follow through level of vancomycin - Eosinophils in urine - Avoid nephrotoxic agents Please, see fellow's note for recommendations * Nuria Guajardo, MINH/LD - 07/03/2022 11:56 AM CSTAssociated Order(s): IP CONSULT TO NUTRITIONAL SERV Nutrition Re-Assessment Brief Synopsis: Patient is dx with malnutrition; Specific criteria can be found in assessment below Nutrition Plan: TwoCal HN at 40 ml/hr. Provides 1920 kcal, 80 g protein, 209g CHO, 672 ml free water. +150 ml q4 hrs free water flush or per MD if not on additional fluids TF considerations: Head of bed must be >30 degrees when TF is infusing Recommendations to Physician: code for malnutrition Comments: Consulted for concern for aspiration. Spoke with RN who reported pt is often leaning overor with poor posture in bed. Head of bed is currently >30 degrees currently. RN unsure if doing TF only during the day would help. Bolus feeds contraindicated due to aspiration risk. Residuals notan issue. TF held currently, was infusing through PEG tube. 2 BM x24 hrs. Will trial changing to TwoCal formula as it is more fluid and calorie dense. Assessment: Med/Surg History and Clinical Diagnoses: 62 year old male with PMH of seizures, stroke w/residual Lsided deficits, dementia, Zenker diverticulum, dysphagia, HTN, BPH, PAD s/p L AKA [facility] Diet order accuracy Current diet order: NPO Current tube feeding order: held for aspiration Nutrition recommendation: agree with current nutrition order P.O.Intake for the past 48 hrs:No data recorded Food Allergies: No known food allergies GI Concerns: None Chewing/Swallowing: Dysphagia (w/ PEG tube) Pain affecting intake: No Admission weight: Weight: 47.6 kg (105 lb) (06/27/22 2131) Recent Weights/Methods 05/30/2022 1434 05/31/2022 0115 06/01/2022 1200 06/11/2022 2016 06/21/2022 1910 06/25/2022 1117 06/27/2022 2131 07/01/2022 0400 Weight: 59.5 kg (131 lb 2.8 oz) 59.5 kg (131 lb 2.8 oz) 59.5 kg (131 lb 2.8 oz) 68 kg (150 lb) 68 kg (150 lb) 47.6 kg (105 lb) 47.6 kg (105 lb) 59 kg (130 lb) Weight Method (Utilize Scales): -- -- -- -- Estimated -- Stated -- Wt Comments: monitoring Height: 185.4 cm (6' 1 ) IBW/lb (Calculated) Male: 184 , Malnutrition Etiology: Malnutrition in the context of: chronic disease, Malnutrition Severity: Severe BMI: Body mass index is 17.15 kg/m??. GI Concerns: None Nutrition Focused Physical Assessment: Loss of Subcutaneous Fat Orbital: Severe Buccal: Severe Chest/Ribs: Severe Muscle Loss Temples (Temporalis Muscle): Severe Clavicles (Pectoralis & Deltoids): Severe Shoulders (Deltoids): Severe Laboratory values reviewed. Recent Labs Component Name 07/03/22 0405 07/02/22 0531 07/01/22 1634 06/30/22 1039 06/29/22 0709 06/27/22 2215 06/21/22 1926 BUN 32* 19 12 7 - 17 14 CREATININE 3.16* 1.99* 1.05 0.58* - 0.78 0.58* NA 144 144 143 140 - 142 142 POTASSIUM 4.7* 4.3 3.9 4.0 - 4.4 4.5 CL 110* 111* 109* 107 - 101 106 CO2 27 24 26 24 - 26 29 GLUCOSE 86 113 108 115 - 98 116* CALCIUM 9.1 9.1 9.0 9.5 - 10.3* 10.7* PROT - - - 6.2 - 8.3 8.3 ALB - - - 2.2* - 3.4 3.2* TBILI - - - 0.3 - 0.3 0.3 ALKPHOS - - - 65 - 95 88 ALT - - - 5 - 6 10 AST - - - 13 - 19 19 ANIONGAP 12 13 12 13 - 19* 12 BCR 10 10 11 12 - 22 24* OSMOLALITY 304* 301* 296 289 - 296 295 AGRATIO - - - 0.6* - 0.7* 0.6* EGFR 22* 37* 81* >90 - >90 >90 - = values in this interval not displayed. Medications noted. Current Facility-Administered Medications Medication ??? 0.9% NaCl injection 3 mL And ??? 0.9% NaCl injection 1-10 mL ??? acetaminophen (Tylenol) tablet 500 mg ??? albuterol-ipratropium (Duo-Neb) nebulizer solution 3 mL ??? artificial tears ophthalmic solution 1 drop ??? aspirin chew tablet 81 mg ??? atorvastatin (Lipitor) tablet 40 mg ??? bisacodyl (Dulcolax) suppository 10 mg ??? cloBAZam (Onfi) tablet 20 mg ??? divalproex sprinkle (Depakote Sprinkle) capsule 500 mg ??? fluticasone propionate (Flonase) nasal spray 1 spray ??? folic acid (Folvite) tablet 1 mg ??? heparin injection 5,000 Units ??? lacosamide (Vimpat) tablet 200 mg ??? levETIRAcetam (Keppra) tablet 2,000 mg ??? piperacillin - tazobactam (Zosyn) 3.375 g in 0.9% NaCl IV 55 mL IVPB ??? polyethylene glycol 3350 (Miralax) packet 17 g ??? tamsulosin (Flomax) capsule 0.4 mg ??? thiamine (Vitamin B-1) tablet 100 mg ??? vancomycin (Vancocin) IV dose per pharmacy Skin/Wound: Exceptions (right arm) Estimated Energy Needs: KCAL: 5977-9996 (30-35 kcal/kg ABW) Protein (g): 100 (1.2 g/kg IBW) Fluid (ml): 1 ml/kcal Needs based on: Kcal/kg- (Comment) (59kg) Recommended Access Route: TF Education needed: None Education Provided: Not appropriate Nutrition Care Process (2) Nutrition Diagnostic Statement (2): Malnutrition related to:: inadequate protein-energy intake as evidenced by:: loss of muscle mass;loss of subcutaneous fat Nutrition Diagnostic Statement Progress: New diagnostic statement established Nutrition Intervention: Enteral nutrition: Monitoring: TF, BM, labs, meds, weight Evaluation: Nutrition Goal: Total intake will meet estimated nutrient needs Nutrition Goal Timeframe: Throughout stay Nutrition Goal Progress: New goal established Ascom: [id number] MOTIVE PAINT TECHNICIAN * Rae Donahue I., DO - 07/03/2022 10:21 AM CSTAssociated Order(s): IP CONSULT TO BUILDINGS AND GROUNDS COORDINATOR Images from the original note were not included. PULMONARY CONSULT NOTE Consult requested by Med Team Attending Physician:Artur Mcgraw MD Reason for consultation: Mucus plugging HPI: Mojgan Tabor is a 62 year old male w/ hx of CVA w/ residual L sided deficits, seizure hx, dementia (AO 1-2 at BL per HP), dysphagia w/ recurrent aspiration (PEG dependent), Zenker diverticulum, HTN, BPH, PAD s/p L AKA who presented to [facility] 06/28 from [facility] w/ hypoxia. He had been admitted a few weeks prior under similar circumstances, had CT chest c/f aspiration PNA for whichhe was treated w/ Vanc/CTX prior to discharge. On re-presentation, chest imaging once again showed RLL consolidation, GGOs c/f PNA. He was started on CTX + azithromycin in ED for presumed CAP and admitted to medicine team where he was escalated to Vanc/zosyn/levaquin. Levaquin was d/c after 24 hours. Procal was noted to be +, MRSA swab +, unable to obtain SpCx. Patient currently planned to complete 7 day course of vanc/zosyn on 07/05. Of note, ENT also consulted d/t Zenker diverticulum, concern for recurrent aspiration of contents, discussing surgical intervention. Pulmonary was consulted as patient seems to have recurrent episodes of aspiration and CXR imaging now shows complete opacification of R with rightward mediastinal shift, concerning for mucus pluggingand atelectasis. On interview, patient answers yes/no questions. Family is present at bedside. I asked patient to cough and at first he did this weakly, however when I asked him to cough harder, he was able to do so.He did not expectorate any sputum with his cough. He is currently on 2 L O2 NC with normal respiratory effort, no accessory use. ROS: See HPI above PAST MEDICAL HISTORY: CVA, seizure hx, dementia, dysphagia, recurrent aspiration, HTN, BPH, PAD PAST SURGICAL HISTORY: L AKA, PEG placement FAMILY HISTORY: Non-contributory SOCIAL HISTORY: Tobacco: Former, 15 pack year hx, quit prior to stroke Illicit drugs: No hx ETOH: Last used 2015 ALLERGIES: Clonazepam OBJECTIVE: Vitals: 07/03/22 0200 07/03/22 0206 07/03/22 0404 07/03/22 0957 BP: 147/89 159/77 Pulse: 105 96 95 Resp: 20 Temp: 97.6 ??F (36.4 ??C) 98 ??F (36.7 ??C) SpO2: 94% 94% 98% 96% Weight: Height: PE: Gen: NAD, resting comfortably in bed HEENT: NC/AT, EOMI. Sclera anicteric CV: Borderline tachy but regular Chest: Severely diminished on R, moderate air movement on L, normal respiratory effort on 2 L o2 NC, no accessory muscle use Abd: PEG in place Extr: L AKA, no edema RLE Neuro: Able to answer yes/no questions and follow simple commands, unable to elaborate on questioning but family is present for this purpose Skin: Dry skin noted LABS: Reviewed MICRO: I have personally reviewed the patient's most recent microbiology and note the following: Microbiology Results (Displays last 21 days for this encounter ONLY) Procedure Component Value - Date/Time CULTURE BLOOD FUNGUS [[id number]] (Normal) Collected: 06/30/222044 Lab Status: Preliminary result Specimen: Blood Peripheral Updated: 07/02/22 1259 Culture Culture in progress RESPIRATORY PANEL WITH SARS-COV-2 BY PCR ([facility]) [[id number]] (Normal) Collected: 06/30/221951 Lab Status: Final result Specimen: Microbiology from Nasopharyngeal Updated: 07/01/22 0014 Adenovirus PCR Not detected Coronavirus 229E PCR Not detected Coronavirus HKU1 PCR Not detected Coronavirus NL63 PCR Not detected Coronavirus OC43 PCR Not detected COVID-19 PCR Not detected Human Metapneumovirus PCR Not detected Human Rhinovirus/Enterovirus PCR Not detected Influenza A PCR Not detected Influenza B PCR Not detected Parainfluenza Virus 1 PCR Not detected Parainfluenza Virus 2 PCR Not detected Parainfluenza Virus 3 PCR Not detected Parainfluenza Virus 4 PCR Not detected Respiratory Syncytial Virus PCR Not detected Bordetella parapertussis PCR Not detected Bordetella pertussis PCR Not detected Chlamydia pneumoniae PCR Not detected Mycoplasma pneumoniae PCR Not detected Narrative: This nucleic amplification assay has received FDA authorization via the [employer]. CULTURE BLOOD [[id number]] (Normal) Collected: 06/30/22 1625 Lab Status: Preliminary result Specimen: Blood Peripheral Updated: 07/02/22 1901 Culture No growth CULTURE BLOOD [[id number]] (Normal) Collected: 06/30/22 1611 Lab Status: Preliminary result Specimen: Blood Peripheral Updated: 07/02/22 1901 Culture No growth CULTURE MRSA [[id number]] (Abnormal) Collected: 06/29/22 1242 Lab Status: Final result Specimen: Microbiology from Nasal Updated: 06/30/22 2139 Culture Growth of Staphylococcus aureus methicillin-resistant (MRSA) Narrative: Methicillin-resistant Staphylococci (MRSA) are resistant to all currently available beta-lactam antibiotics with the exception of the newer cephalosporins with anti-MRSA activity. Contact precautionsrequired. LEGIONELLA ANTIGEN URINE [[id number]] (Normal) Collected: 06/28/22 0348 Lab Status: Final result Specimen: Urine Updated: 06/28/22 1005 Legionella Antigen Urine Negative Narrative: This assay detects Legionella pneumophila serogroup one (1) antigen. A negative test result does not rule out the possibility of Legionella infection due to other serogroups or species of Legionella.A positive result may indicate a recent or remote infection with serogroup 1. SARS-COV-2 (COVID-19) FLU A/B RSV PCR RAPID [[id number]] (Normal) Collected: 06/27/22 2223 Lab Status: Final result Specimen: Microbiology from Nasopharyngeal Updated: 06/27/22 2310 COVID-19 PCR Not detected Influenza A PCR Not detected Influenza B PCR Not detected RSV PCR Not detected Narrative: This nucleic acid amplification assay has been authorized by the Food and Drug administration (FDA)under an Emergency??Use Authorization (EUA).?? This test is only authorized for the duration of time the declaration that circumstances exist justifying the authorization of emergency use of in vitrodiagnostic tests for detection of SARS-CoV-2 virus and/or diagnosis of COVID-19 infection under section 564(b)(1) of the Act, 21 U.S.C 360bbb-3 (b)(1), unless the authorization is terminated or revoked sooner. Fact Sheets for this EUA assay are available upon request. CULTURE BLOOD [[id number]] (Normal) Collected: 06/27/222214 Lab Status: Final result Specimen: Blood Peripheral Updated: 07/03/22199 Culture No growth day 5 CULTURE BLOOD [[id number]] (Normal) Collected: 06/27/222199 Lab Status: Final result Specimen: Blood Peripheral Updated: 07/03/22199 Culture No growth day 5 IMAGING: I have personally reviewed the patient's most recent imaging and note the following: XR CHEST 1VW PORTABLE Result Date: 06/27/2022 IMPRESSION: Right lower lung zone consolidative opacities, which corresponds to the consolidation seen on chest CT 06/12/2022 and consistent with pneumonia and/or aspiration pneumonitis. Report drafted by Rodolfo Naidu MD (residential coordinator). IGeorgia MD, PhD have personally reviewed and interpreted this examination/study. > Interpreting Provider: Georgia Lees MD, PhD on 06/27/2022 11:[address] CHEST ABDOMEN PELVIS W CONT Result Date: 06/12/2022 Impression: 1.Right lower lung consolidation compatible with aspiration and/or pneumonia. 2.Severalenhancing hepatic lesions measuring up to 1.1 cm. These could represent flash filling hemangiomas or lesions of other etiology. These are more conspicuous compared to prior studies, possibly due to differences in the phase of contrast. Consider further characterization with liver MRI or follow-up to ensure stability. 3.Heterogeneous renal cortical enhancement, possibly reflecting pyelonephritis or a renal parenchymal or vascular process. Several nonobstructing small calculi, left greater than right. > Dictated by Brandee Celestin MD (operations vice president). Charles Thomason MD have personally reviewed and interpreted this examination/study. > Interpreting Provider: Charles Hare MD on 06/12/2022 9:[address] CHEST PE W ABD PELVIS W CONT Result Date: 06/28/2022 Impression: 1.No evidence of acute pulmonary embolism. 2.Volume loss and confluent consolidation inthe right lower lobe with areas of hypoenhancement [...] unremarkable. > Dictated by Alexandro Kelsey MD (operations vice president) IAshwin MD have personally reviewed and interpreted this examination/study. > Interpreting Provider: Ashwin Read MD on 06/28/2022 8:38 AM ASSESSMENT/PLAN: ??? Acute hypoxic respiratory failure, currently on NC ??? Recurrent aspiration pneumonia o Currently on vanc/zosyn for 7 day course, ending 07/05 o MRSA + nasal swab ??? R hemithorax opacification on chest imaging o C/f mucus plugging and atelectasis given mediastinal shift o POCUS completed at bedside which confirms atelectatic lung, no effusion present ??? Hx CVA w/ L sided deficits ??? Dysphagia s/p PEG ??? Zenker diverticulum RECOMMENDATIONS: ??? Patient's cough is not ideal, however it would be reasonable to attempt bronchial hygiene measures such as vest therapy and scheduled nebulizers. If respiratory status worsens, low threshold for ICU transfer ??? Recommend frequent oral suctioning ??? Patient is high risk for continued aspiration, mucus plugging o Aspiration precautions, NPO o Agree with ENT consultation to evaluate possible intervention for Zenker's diverticulum given recurrent episodes of aspiration o GOC discussion with family are recommended to delineate wishes on intubation should respiratory status worsen ??? Continue abx to complete course for aspiration PNA ? ? Titrate supplemental oxygen to maintain SpO2>92% Thank you for the interesting consult. Pulmonary Medicine will continue to follow. Please don't hesitate to contact us with questions or concerns. Patient to be staffed with pulmonary attending (Dr. Abarca) Rae Donahue DO Pulmonary/Critical Care Medicine Fellow MOTIVE PAINT TECHNICIAN Associated attestation - Artemio Abarca MD - 07/03/2022 6:21 PM AUTOMOTIVE PAINT TECHNICIAN I saw and evaluated the patient. I reviewed the resident???s note and agree with findings and plan as documented in the resident???s note Artemio Abarca MD Division of Pulmonary, Critical Care, & Sleep Medicine [facility] [employer] P: [phone] 07/03/2022 , 6:21 PM * Blair Molina MD - 06/29/2022 5:23 PM CST Images from the original note were not included. Otolaryngology-Head and Neck Surgery Consultation Note PATIENT INFORMATION Mojgan Tabor 62 year old male Today's Date: 06/29/2022 CC: Chief Complaint Patient presents with Shortness of Breath Pt presents to emergency department via EMS for complaints of shortness of breath. Pt is from [facility] and was found in bed with anO2 sat in the low 80s. Staff states that they placed pt on 2L with no reaction. EMS was called. Upon arrival EMS placed pt on NR at 15L. Pt placed on monitor and called light was placed in reach. Reason for consult: Zenker Diverticulum Consulting Service: Medicine HPI/ROS/Allergies HPI: Mojgan Tabor is a 62 year old male with a PMH significant for R. Occipital stroke (2014), headinjury, seizures, Alzheimer's, Right BKA, refractory epilepsy, dysphasia w/PEG tube placement on 03/25/22. seen in consultation for patient's known zenker diverticulum. Pt was seen last week in clinic with discussion of planned repair. Pt admitted for presumed aspiration pneumonia despite recommendation for NPO. Hx otherwise limited due to pt somnolence. Allergies: Allergies Allergen Reactions Clonazepam Psychiatric hallucinations Review of Systems (negative unless bold): Constitutional: Fatigue, appetite change, weight change, sleep change HEENT: Rhinorrhea, vision changes, throat ache Respiratory: Dyspnea, wheezing, cough Cardiovascular: Decreased exercise tolerance, palpitations Gastrointestinal: Diarrhea, constipation, nausea, abdominal pain Musculoskeletal: Joint pain Neurological: Seizures, headaches PMH/PSH/SH/FH/Meds PAST MEDICAL HISTORY Past Medical History: Diagnosis Date CVA (cerebral vascular accident) (CMS/HCC) HTN (hypertension) Seizure (CMS/HCC) PAST SURGICAL HISTORY Past Surgical History: Procedure Laterality Date ENDOSCOPY, UPPER N/A 03/25/2022 N/A; ESOPHAGOGASTRODUODENOSCOPY (EGD) DIAGNOSTIC with PEG Placement Leg Amputation, Below Knee Left 03/15/2022 Left; LEFT BKA POSS AKA SOCIAL HISTORY: Social History Tobacco Use Smoking status: Former Packs/day: 1.00 Years: 15.00 Pack years: 15.00 Types: Cigarettes Smokeless tobacco: Never Vaping Use Vaping Use: Never used Substance Use Topics Alcohol use: No Comment: last drink 2015 Drug use: No Comment: occasional FAMILY HISTORY Non-contributory. MEDICATIONS No current facility-administered medications on file prior to encounter. Current Outpatient Medications on File Prior to Encounter Medication Sig Dispense Refill acetaminophen (Tylenol) 500 MG tablet 1 (one) tablet by Enteral Tube route every 6 hours as needed Maximum allowable Acetaminophen amount = 4 Grams (4000 mg) / 24 hours. (Patient taking differently: 1 (one) tablet by Enteral Tube route as needed Maximum allowable Acetaminophen amount = 4 Grams (4000 mg) / 24 hours.) artificial tears ophthalmic solution Instill 1 (one) drop into both eyes 3 times daily as needed aspirin (Aspirin) 81 MG chew tablet 1 (one) tablet by Enteral Tube route once daily for 30 days 30 tablet 0 atorvastatin (Lipitor) 40 MG tablet 1 (one) tablet by Enteral Tube route once daily bisacodyl (Dulcolax) 10 MG suppository Insert 1 (one) suppository into the rectum once daily as needed for Constipation carboxymethylcellulose sodium (Refresh;Celluvisc) 1 % ophthalmic solution 1 (one) drop by Ophthalmic route once daily as needed cloBAZam (Onfi) 20 MG tablet 1 (one) tablet by Enteral Tube route [address] (Depakote) 500 MG tablet Take 1 (one) tablet by mouth as directed divalproex sprinkle (Depakote Sprinkle) 125 MG capsule 4 (four) capsules by Enteral Tube route Every 6 Hours (03,09,15,21) for 30 days 480 capsule 0 docusate sodium (Colace) 150 MG/15ML solution Take 15 mL by mouth as needed fluticasone propionate (Flonase) 50 MCG/ACT nasal spray Godwin 1 (one) spray into each nostril as [...] daily midazolam (Nayzilam) 5 MG/0.1ML nasal spray Godwin 0.1 mL into the nose as needed for Seizures 1 Each 5 polyethylene glycol 3350 (Miralax) 17 g packet 17 (seventeen) g by Enteral Tube route once daily for 30 days (Patient taking differently: 17 (seventeen) g by Enteral Tube route as needed) 30 packet 0 tamsulosin (Flomax) 0.4 MG capsule Take 1 (one) capsule by mouth once daily At the same time every day after a meal. Please make sure it is via enteral tube. thiamine (Vitamin B-1) 100 MG tablet 1 (one) tablet by Enteral Tube route once daily Physical Exam Vitals: BP 129/88 Pulse (!) 113 Temp 98.2 ??F (36.8 ??C) (Oral) Resp 18 Ht 1.854 m (6' 1 ) Wt 47.6 kg (105 lb) SpO2 95% BMI 13.85 kg/m?? PHYSICAL EXAM General: drowsy and disoriented. Neuro: Moving all 4. CV: RRR. Respiratory: Non-labored respiratory effort on RA. Extremities: Left BKA Ears, Nose, Mouth, and Throat Exam External exam of the ears and nose: Grossly normal Otoscopy: deferred Hearing assessment: Grossly normal Nasal mucosa, septum, and turbinates: Moist mucosa, septum non-deviated, inferior turbinates normal. Lips, teeth, and gums: No masses or lesions. poor dentition. Oropharynx: normal tonsils. Posterior oropharynx clear of blood. Examination of neck: Soft, flat, supple, no appreciable lymphadenopathy. Examination of thyroid: Not enlarged, no tenderness. Neurological and Cranial Nerves: II-XII grossly intact, including V1-V3, VII Head and face inspection: NC/AT. Labs/Imaging/Micro/Pathology Recent Labs: CBC Recent Labs Component Name 06/29/22 0709 06/27/22 2330 06/21/221925 WBC 11.1* 15.8* 9.9 HGB 10.6* 11.9* 12.9 HCT 32.4* 36.7 40.4 PLTCOUNT 142* 196 380 BMP Recent Labs Component Name 06/29/22 0709 06/27/22 2215 06/21/226 06/15/22 0603 06/14/22 0524 06/13/22 0534 POTASSIUM 4.4 4.4 4.5 4.0 4.0 3.9 CO2 26 26 29 27 26 26 BUN 11 17 14 12 15 14 CREATININE 0.56* 0.78 0.58* 0.67* 0.77 0.83 GLUCOSE 102 98 116* 120* 118* 78 CALCIUM 9.5 10.3* 10.7* 9.9 9.7 9.9 PHOS - - - 3.0 2.6* 3.1 LFTs Recent Labs Component Name 06/27/22 2215 06/21/226 06/15/22 0603 AST 19 19 13 ALT 6 10 9 ALKPHOS 95 88 77 Coags Recent Labs Component Name 06/27/225 05/11/22 1309 03/11/22 1059 PT 12.8 13.5 15.4* INR 1.0 1.0 1.2 ABG Recent Labs Component Name 05/11/22 1309 03/11/22 1059 02/25/21 1212 04/11/15 0622 PH 7.36 7.47* 7.34 7.38 PO2 - 80 - 134* PCO2 - 41 - 36 HCO3 - - - 20.9* BE - 5.6* - -3.6* Recent Imaging/Studies: MBS and esophagram reviewed. Recent Micro/Pathology: No new relevant cultures or biopsies. ASSESSMENT & PLAN Mojgan Tabor is a 62 year old male with a PMH significant for R. Occipital stroke (2015), head injury, seizures, Alzheimer's, Right BKA, refractory epilepsy, dysphasia w/PEG tube placement on 03/25/22. seen in consultation for zenker diverticulum.. - Will add for Tuesday07/05/22 for zenkers repair (endoscopic vs open). - Will consent prior - Hold feeds and AC MN prior. Seizure care per per neurology Continue G tube feeds Please page ENT with questions/concerns. Blair Molina MD 06/29/2022 5:34 PM MOTIVE PAINT TECHNICIAN Associated attestation - Alden Hurtado MD - 06/30/2022 1:03 PM AUTOMOTIVE PAINT TECHNICIAN Attending Physician Supervisory Note I personally interviewed and examined the patient and agree with the Resident above. In addition I note: Recently seen outpatient by myself and we agreed to proceed with elective surgery for his known Zenker's diverticulum, however he is now again admitted with aspiration. He is currently on O2 NC. I suspect he will continue to intermittently aspirate the contents of the diverticulum even if he remains NPO so it is worth considering surgery during this admission. Will discuss with his family and hospitalitis prior to finalizing. Alden Hurtado MD documented in this encounter Nursing Notes * Elif Galvan RN - 07/15/2022 9:57 AM CST Trach obturator for placed trach, 6 Shiley, and replacement 6 Shiley and 4 Shiley( cuffless ) trachtubes sent with patient back to ICU and given to bedside MOBILE APPLICATION DEVELOPMENT LEAD. MOTIVE PAINT TECHNICIAN documented in this encounter OR Notes * Operative - Alden Hurtado MD - 07/15/2022 8:11 AM CST Operative Report Name: Mojgan Tabor 1960 Age: [age] year old Proc Date: 07/15/22 Sex: male PREOPERATIVE DIAGNOSES: 1. Zenker's diverticulum 2. Respiratory failure POSTOPERATIVE DIAGNOSES: 1. same SURGEON: Alden Hurtado MD RESIDENT: Roscoe Lobo MD PROCEDURES: 1. Transcervical Zenker's diverticulectomy with cricopharyngeal myotomy 2. Tracheostomy FINDINGS: 1. Zenker's pouch excised with stapler 2. Complete cricopharyngeal myotomy 3. No pharyngotomy 4. 6-0 cuffed shiley placed INDICATIONS FOR PROCEDURE: The patient is a 62 year old male with a history of seizure disorder, and Zenker's diverticulum. As a result he had a G-tube placed and was made strictly n.p.o. Nonethelesshe has been admitted for multiple recurrent aspiration pneumonias. We had planned an elective Zenker's repair, however he was admitted once again with an aspiration pneumonia ultimately requiring intubation and unable to be weaned off the ventilator for 1 week. After discussion with his sisters we agreed to proceed with a Zenker's repair as well as a tracheostomy the same setting. DESCRIPTION OF PROCEDURE: The patient was brought to the operating room and placed in the supine position on the operating table. General anesthesia was induced. We first examined the hypopharynx with a micrograms laryngoscope. We able to visualize the Zenker'sdiverticulum but difficulty visualizing the esophageal inlet. I therefore elected to proceed with atranscervical approach. Bougie dilators placed in the esophagus to facilitate dissection. The neck was then extended and rotated to the right side. A transverse incision was marked at the level of the cricoid and the left neck and injected with local anesthetic. The neck was then prepped and drapedusual sterile fashion. The skin and platysma was divided. Subplatysmal flaps were elevated. We developed the plane between the sternocleidomastoid muscle and the strap musculature. The omohyoid muscle was mobilized and retracted inferiorly. The middle thyroid vein was ligated and tied. We then continue dissecting medial to the great vessels along the side of the larynx until we reached the retropharyngeal space. We then mobilized the larynx and rotated this medially along the dissecting along the posterior aspect of the pharynx unduly diverticulum was apparent. We then carefully dissected thefascia off of this until it was fully mobilized and only attached at its neck to the hypopharynx. This was grasped with a Herber retractor retracted superiorly while we dissected along the submucosal space and divided the cricopharyngeus muscle inferiorly. We then use a TA stapler to staple and divide across the base of the diverticulum. The wound was then irrigated. Hemostasis was ensured. The skin was closed with 3-0 Vicryl platysma, 3-0 Vicryl for the deep dermis, and 5-0 fast gut superficially. Then moved onto the tracheostomy. A 15 mm transverse incision was marked just above the sternal notch to allow it to be from the neck wound. Continued down to the strap musculature were then divided along the midline raphae and retracted laterally. The thyroid isthmus was divided with Bovie cautery exposing anterior tracheal wall. We then made a horizontal incision between the second third tracheal ring, elevated Louise flap inferiorly and sutured this inferior skin flap with 3-0 Vicryl suture. Endotracheal tube was then withdrawn and a 6 cuffed Shiley placed the tracheostomy stoma. This was connected to the ventilatory circuit and appropriate placement was confirmed with easy ventilation return of CO2. The tracheostomy is and secured to the skin in 4 quadrants to assault suturesand trach ties. The patient was then transported back to the ICU in stable condition. COMPLICATIONS: None. ESTIMATED BLOOD LOSS: 20 mL DISPOSITION: ICU Alden Hurtado MD MOTIVE PAINT TECHNICIAN * Brief Op Note - Rodrigo Lobo MD - 07/15/2022 7:30 AM CST Brief Op Note Procedure: TRANSCERVICAL ZENKERS DIVERTICULECTOMY, OPEN TRACHEOSTOMY Patient Name: Mojgan Tabor Date of Service: 07/15/2022 Pre-Op Diagnosis: DYSPHAGIA OROPHARYNGEAL PHASE, Respiratory failure Post-Op Diagnosis: Same Surgeon(s) and Role: * Alden Hurtado MD - Primary * Svetlana Lewis MD - Resident - Assisting * Rodrigo Lobo MD - Resident - Assisting Floorperson(s): none Anesthesia Type: general Complications: none Findings: transoral approach attempted but sufficient view of diverticulum could not be obtained, transcervical diverticulectomy performed, 6-0 cuffed Shiley trach placed EBL: minimal blood loss Urine Output : see I/O IV Fluid Intake: see anesthesia Drains: Enteral - Percutaneous Endoscopic Gastrostomy Abdomen;Midline;Upper (Active) Surrounding Skin Dry;Intact 07/15/22 06 Tube Status Infusing 07/15/22 06 Gastric Output Amount (mL) 0 ML 07/05/22 08 Gastric Output Description None/NA 07/15/22 06 Position verified Auscultation;Stomach contents obtained 07/15/22 06 Gastric Residual Amount (ML) 0 ML 07/15/22 06 Gastric Flush Amount 250 ML 07/14/22 193 Gastric Flush Type Water 07/14/22 193 Site Assessment WDL 07/15/22 06 Dressing Type None 07/15/22 06 Dressing Status Clean, Dry, Intact 07/15/22 06 Site Care Open to Air 07/15/22 06 Dressing Change Date 07/07/22 07/07/22 06 Dressing ChangeTime 0600 07/07/22 06 Tubing Maintenance Tubing Changed;Bag Changed;Tube feed syringe Changed 07/15/22 06 Graduated Cylinder Change Date 07/15/22 07/15/22 06 Tube Feed Syringe Change Date 07/15/22 07/15/22 06 [REMOVED] Fecal Drainage Device With balloon (Removed) Rectal Device Output amount 150 07/07/22 1800 Output description Liquid;Brown 07/07/22 2100 Assessment Intact Casandra-rectal Tissue 07/07/22 2100 Balloon Inflation Fluid Amount 45 mL 07/07/22 2100 Rectal Tube Balloon Deflation Yes 07/07/22 0800 Irrigation amount 30 07/07/22 0800 Specimen(s): ID Type Source Tests Collected by Time Destination A : HYPOPHARYNGEAL DIVERTICULUM Biopsy, Excision Soft Tissue, Other PATHOLOGY TISSUE Alden Hurtado MD 07/15/2022 9:52 AM Implant(s): * No implants in log * Rodrigo Lobo MD MOTIVE PAINT TECHNICIAN documented in this encounter ED Notes * Beatriz Cochran RN - 06/28/2022 10:22 PM CST Report giving to receiving Nurse. MOTIVE PAINT TECHNICIAN * Merrick García RN - 06/28/2022 7:15 AM CST Report to ALFRED Avina MOTIVE PAINT TECHNICIAN * Merrick García RN - 06/28/2022 6:59 AM CST Pt resting comfortably asleep on stretcher at this time. RR even and unlabored. Pt noted to be in no distress, Pt's call light noted to be in reach with bedrails up x2. Pt's external catheter noted to be removed. This RN changed pt and applied new catheter. MOTIVE PAINT TECHNICIAN * Merrick García RN - 06/28/2022 5:42 AM CST Pt resting comfortably asleep on stretcher at this time. RR even and unlabored. Pt noted to be in no distress, Pt's call light noted to be in reach with bedrails up x2. MOTIVE PAINT TECHNICIAN * Merrick García RN - 06/28/2022 4:39 AM CST Pt resting comfortably asleep on stretcher at this time. RR even and unlabored. Pt noted to be in no distress, Pt's call light noted to be in reach with bedrails up x2. MOTIVE PAINT TECHNICIAN * Merrick García RN - 06/28/2022 3:21 AM CST Pt resting comfortably asleep on stretcher at this time. RR even and unlabored. Pt noted to be in no distress, Pt's call light noted to be in reach with bedrails up x2. MOTIVE PAINT TECHNICIAN * Merrick García RN - 06/28/2022 2:31 AM CST Pt resting comfortably asleep on stretcher at this time. RR even and unlabored. Pt noted to be in no distress, Pt's call light noted to be in reach with bedrails up x2. MOTIVE PAINT TECHNICIAN * Merrick García RN - 06/28/2022 1:40 AM CST Pt resting comfortably asleep on stretcher at this time. RR even and unlabored. Pt noted to be in no distress, Pt's call light noted to be in reach with bedrails up x2. MOTIVE PAINT TECHNICIAN * Merrick García RN - 06/28/2022 12:53 AM CST Pt back to room from CT at this time. Pt was placed back on monitor and back on high flow. Pt denies any needs at this time. Pt's call light noted to be in reach. MOTIVE PAINT TECHNICIAN * Merrick García RN - 06/28/2022 12:42 AM CST Pt to CT on NR at this time. MOTIVE PAINT TECHNICIAN * Merrick García RN - 06/27/2022 11:40 PM CST Pt resting comfortably asleep on stretcher at this time. RR even and unlabored. Pt noted to be in no distress, Pt's call light noted to be in reach with bedrails up x2. MOTIVE PAINT TECHNICIAN * Arthur Marinelli MD - 06/27/2022 11:18 PM CST Emergency Medicine Attending Note Interval History : Chief Complaint Patient presents with ??? Shortness of Breath Pt presents to emergency department via EMS for complaints of shortness of breath. Pt is from [facility] and was found in bed with anO2 sat in the low 80s. Staff states that they placed pt on 2L with no reaction. EMS was called. Upon arrival EMS placed pt on NR at 15L. Pt placed on monitor and called light was placed in reach. Mojgan Tabor is a 62 year old male presenting to the ED c/o hypoxia. Patient arrives from nursing facility for further evaluation. Per nursing staff, patient was hypoxic in the 80s. Patient reports he does not feel well and is short of breath. Patient has past medical history of HTN, seizures, and CVA. Patient has a past surgical history of BKA and PEG placement. Patient has no other complaints or modifying factors at this time. Past Medical History: Diagnosis Date ??? CVA (cerebral vascular accident) (CMS/HCC) ??? HTN (hypertension) ??? Seizure (CMS/HCC) Past Surgical History: Procedure Laterality Date ??? ENDOSCOPY, UPPER N/A 03/25/2022 N/A; ESOPHAGOGASTRODUODENOSCOPY (EGD) DIAGNOSTIC with PEG Placement ??? Leg Amputation, Below Knee Left 03/15/2022 [...] Social Determinants of Health Financial Resource Strain: Not on file Food Insecurity: No Food Insecurity ??? Worried About Running Out of Food in the Last Year: Never true ??? Ran Out of Food in the Last Year: Never true Transportation Needs: Not on file Stress: Not on file Housing Stability: Not on file Allergies Allergen Reactions ??? Clonazepam Psychiatric hallucinations Review of Systems: (+) positive Review of Systems Constitutional: Positive for malaise/fatigue. Negative for chills, diaphoresis and fever. HENT: Negative for congestion and nosebleeds. Eyes: Negative for photophobia and pain. Respiratory: Positive for shortness of breath. Negative for cough, hemoptysis, sputum production, wheezing and stridor. Cardiovascular: Negative for chest pain, palpitations, orthopnea and leg swelling. Gastrointestinal: Negative for abdominal pain, constipation, diarrhea, nausea and vomiting. Genitourinary: Negative for dysuria and frequency. Musculoskeletal: Negative for back pain and myalgias. Skin: Negative for rash. Neurological: Negative for dizziness, sensory change, focal weakness, loss of consciousness, weakness and headaches. Physical Exam Vitals: 06/27/22 2143 06/27/22 2158 06/27/22 2213 06/27/22 2228 BP: 160/98 156/95 151/93 (!) 150/113 Pulse: (!) 135 (!) 131 (!) 135 (!) 130 Resp: 10 24 9 15 Temp: SpO2: 93% 96% 92% Weight: Height: Physical Exam Constitutional: General: He is not in acute distress. Appearance: Normal appearance. He is not ill-appearing, toxic-appearing or diaphoretic. Interventions: Nasal cannula in place. HENT: Head: Normocephalic and atraumatic. Nose: Nose normal. Mouth/Throat: Mouth: Mucous membranes are dry. Pharynx: Oropharynx is clear. Eyes: Pupils: Pupils are equal, round, and reactive to light. Cardiovascular: Rate and Rhythm: Regular rhythm. Tachycardia present. Pulses: Normal pulses. Pulmonary: Effort: Respiratory distress present. Breath sounds: Normal breath sounds. Abdominal: General: Abdomen is flat. There is no distension. Tenderness: There is no abdominal tenderness. There is no guarding. Comments: PEG tube in place. Musculoskeletal: General: No tenderness. Normal range of motion. Cervical back: Normal range of motion and neck supple. Skin: General: Skin is warm and dry. Neurological: General: No focal deficit present. Mental Status: He is alert and oriented to person, place, and time. Mental status is at baseline. Psychiatric: Mood and Affect: Mood normal. Behavior: Behavior normal. Medical Decision Making: Problem List: 1. Shortness of breath - Ddx: viral illness vs pneumonia vs aspiration vs ACS vs metabolic disturbance vs other - PLAN: EKG, lab work up, x-ray, CT, UA, antibiotics, blood cultures. Likely admission. see below for further orders/plan. Orders Placed This Encounter ??? CULTURE BLOOD ??? SARS-COV-2 (COVID-19) FLU A/B RSV PCR RAPID ??? XR CHEST 1VW PORTABLE ??? CT CHEST PE W ABD PELVIS W CONT ??? CBC W AUTO DIFFERENTIAL ??? COMPREHENSIVE METABOLIC PANEL ??? LACTIC ACID BLOOD REFLEX TO REPEAT ??? LIPASE BLOOD ??? MAGNESIUM BLOOD ??? TROPONIN I ??? TROPONIN I ??? URINALYSIS REFLEX TO MICROSCOPIC NO CULTURE ??? PT-INR [facility] ??? High Flow Nasal Cannula Therapy ??? EKG 12-LEAD ??? lactated ringers IV bolus ??? cefTRIAXone (Rocephin) 2,000 mg in 0.9% NaCl IV 50 mL IVPB ??? azithromycin (Zithromax) 500 mg in 0.9% NaCl IV 250 mL IVPB Data Review: (All Labs/Imaging/ECG, other diagnostics independently interpreted by me.) - MONITORING: The patient's Prepress Operator Rhythm was interpreted by me. The monitoring and evaluation advisor showed sinus tachycardia. This is interpreted as normal. The patient's Oxygen Saturation Monitor was interpreted by me. The reading was 92%. The patient wason high-flow nasal canula at the time of the reading. This is interpreted as abnormal. - ECG: Interpreted by me: Date: 06/27/2022 Time: 22:40 R&R: sinus tachycardia with a ventricular rate of 127 bpm - LABS: Labs Reviewed COMPREHENSIVE METABOLIC PANEL - Abnormal; Notable for the following components: Result Value Calcium 10.3 (*) Anion Gap 19 (*) Albumin/Globulin Ratio 0.7 (*) All other components within normal limits LACTIC ACID BLOOD REFLEX TO REPEAT - Abnormal; Notable for the following components: Lactic Acid-Stat 2.5 (*) All other components within normal limits SARS-COV-2 (COVID-19) FLU A/B RSV PCR RAPID - Normal Narrative: This nucleic acid amplification assay has been authorized by the Food and Drug administration (FDA)under an Emergency??Use Authorization (EUA).?? This test is only authorized for the duration of time the declaration that circumstances exist justifying the authorization of emergency use of in vitrodiagnostic tests for detection of SARS-CoV-2 virus and/or diagnosis of COVID-19 infection under section 564(b)(1) of the Act, 21 U.S.C 360bbb-3 (b)(1), unless the authorization is terminated or revoked sooner. Fact Sheets for this EUA assay are available upon request. LIPASE BLOOD - Normal Narrative: Lipase results from the [employer] Al[employer] analyzer may not be comparable with other methodologies. MAGNESIUM BLOOD - Normal TROPONIN I - Normal PT-INR [facility] - Normal CULTURE BLOOD CULTURE BLOOD CBC W AUTO DIFFERENTIAL URINALYSIS REFLEX TO MICROSCOPIC NO CULTURE TROPONIN I - IMAGING: XR CHEST 1VW PORTABLE Final Result EXAM: XR CHEST 1VW PORTABLE DATE/TIME: 06/27/2022 10:02 PM LOCATION: [facility] HISTORY: R09.02: Hypoxia COMPARISON: Chest radiograph 06/11/2022. Chest CT 06/12/2022. FINDINGS: Lines/Tubes: None. Lungs: Right lower lung zone consolidative opacities, which corresponds to the consolidation seen on chest CT 06/12/2022 and consistent with pneumonia or aspiration pneumonitis. Left lung is clear. Pleura: No pneumothorax or pleural effusion. Mediastinum/Other: Normal cardiomediastinal silhouette given rotation. Bones: Visible bony thorax is intact. IMPRESSION: Right lower lung zone consolidative opacities, which corresponds to the consolidation seen on chest CT 06/12/2022 and consistent with pneumonia and/or aspiration pneumonitis. Report drafted by Rodolfo Naidu MD (residential coordinator). Georgia Thomason MD, PhD have personally reviewed and interpreted this examination/study. > Interpreting Provider: Georgia Lees MD, PhD on 06/27/2022 11:[address] CHEST PE W ABD PELVIS W CONT (Results Pending) XR CHEST 1VW PORTABLE Result Date: 06/27/2022 IMPRESSION: Right lower lung zone consolidative opacities, which corresponds to the consolidation seen on chest CT 06/12/2022 and consistent with pneumonia and/or aspiration pneumonitis. Report drafted by Rodolfo Naidu MD (residential coordinator). Georgia Thomason MD, PhD have personally reviewed and interpreted this examination/study. > Interpreting Provider: Georgia Lees MD, PhD on 06/27/2022 11:09 PM - MEDS: Medications cefTRIAXone (Rocephin) 2,000 mg in 0.9% NaCl IV 50 mL IVPB (2,000 mg Intravenous $ New Bag/Syringe 06/27/22 2302) azithromycin (Zithromax) 500 mg in 0.9% NaCl IV 250 mL IVPB (has no administration in time range) lactated ringers IV bolus (0 mL Intravenous Stopped 06/27/22 2258) MDM: History is obtained from patient and is located in my HPI section. I also externally reviewed previous records that I had access to within [facility] and noted relevant statements in my HPI. Code status patient/POA: Full Relevant PE findings: mildly increased work of breathing, tachycardia Labs reviewed: elevated WBC count Imaging reviewed: CXR with RLL infiltrate ED COURSE 2114: Patient will continued hypoxia on NC, patient placed on High flow NC with improvement of O2 saturation. 0130: CT PE shows RLL infiltrate, patient being treated with Abx for likely PNA. Due to tachycardia, new O2 requirement, will admit patient to medicine. 0330: Patient admitted to medicine at this time. 0530: Medicine has assumed care of the patient at this time. On reevaluation: improved work up breathing on supplemental O2 Labs/images reviewed at bedside with patient: none Conclusion and Disposition: Acute problems: SOB Exacerbations of chronic problems: none Systemic issues: none Consultations in the ED: none Medication changes: none Follow up: per admitting team This patient was evaluated during the COVID-19 pandemic. Orders and Medicine administered during this encounter: Orders Placed This Encounter ??? CULTURE BLOOD ??? SARS-COV-2 (COVID-19) FLU A/B RSV PCR RAPID ??? XR CHEST 1VW PORTABLE ??? CT CHEST PE W ABD PELVIS W CONT ??? CBC W AUTO DIFFERENTIAL ??? COMPREHENSIVE METABOLIC PANEL ??? LACTIC ACID BLOOD REFLEX TO REPEAT ??? LIPASE BLOOD ??? MAGNESIUM BLOOD ??? TROPONIN I ??? TROPONIN I ??? URINALYSIS REFLEX TO MICROSCOPIC NO CULTURE ??? PT-INR [facility] ??? High Flow Nasal Cannula Therapy ??? EKG 12-LEAD ??? lactated ringers IV bolus ??? cefTRIAXone (Rocephin) 2,000 mg in 0.9% NaCl IV 50 mL IVPB ??? azithromycin (Zithromax) 500 mg in 0.9% NaCl IV 250 mL IVPB Medications cefTRIAXone (Rocephin) 2,000 mg in 0.9% NaCl IV 50 mL IVPB (2,000 mg Intravenous $ New Bag/Syringe 06/27/22 8862) azithromycin (Zithromax) 500 mg in 0.9% NaCl IV 250 mL IVPB (has no administration in time range) lactated ringers IV bolus (0 mL Intravenous Stopped 06/27/22 4057) Clinical Impression: 1. Hypoxia 2. Acute respiratory failure with hypoxia (CMS/HCC) Disposition: Admit to Medicine I, Dr. Marinelli, personally performed the services described in this documentation. All medical record entries made by the scribe were at my direction and in my presence. I have reviewed the chart and agree that the record reflects my personal performance and is accurate and complete. MOTIVE PAINT TECHNICIAN * Merrick García, RN - 06/27/2022 10:48 PM CST This RN at bedside. Pt noted to be incontinent of bladder. Depends changed and male external catheter applied with drainage bag. MOTIVE PAINT TECHNICIAN * Merrick García, ALFRED - 06/27/2022 10:34 PM CST Pt resting comfortably asleep on stretcher at this time. RR even and unlabored. Pt noted to be in no distress, Pt's call light noted to be in reach with bedrails up x2. OT * Dawn Zamorano RN - 06/27/2022 9:42 PM CST Bed: 23 Expected date: Expected time: Means of arrival: Comments: Blanche [id number] - 62M, SOB, on NRB 96% O2 MOTIVE PAINT TECHNICIAN documented in this encounter Miscellaneous Notes * Code/Rapid Response Event - Herb Mckeon RN - 07/03/2022 3:21 PM AUTOMOTIVE PAINT TECHNICIAN RAPID RESPONSE EVENT NOTE [address] [address] Patient: Mojgan Tabor Location: 8106/30 : 1960 Reason for Admission: No admission diagnoses are documented for this encounter. Provider Teams Team Primary Team Specialty Team Pager [facility] MED 1 Yes Internal Medicine [facility] Pulmonary Team No Pulmonary Disease Event Date/Time: 07/03/2022 1500 Summary of Events: The Rapid Response Team (SCHEDULING ANALYST) was called regarding patient oxygen desaturation. Patient found to have SpO2 of 70's.. Patient placed on non- rebreather mask. Patient NT suctioned with copious output. Patient placed on high flow nasal cannula at 60L/100%. Patient SpO2 of 94% on highflow nasal cannula. Orders for ICU placed by MD Mcgraw. Will continue to monitor until transfer. Vital Signs: Patient Vitals for the past 24 hrs: Temp Pulse Resp BP SpO2 07/03/22 1401 -- 109 20 -- 92 % 07/03/22 1147 -- 98 20 144/80 93 % 07/03/22 1130 -- -- 20 -- (!) 85 % 07/03/22 0957 98 ??F (36.7 ??C) 95 20 159/77 96 % 07/03/22 0404 -- 96 -- -- 98 % 07/03/22 0206 97.6 ??F (36.4 ??C) 105 -- 147/89 94 % 07/03/22 0200 -- -- -- -- 94 % 07/03/22 0125 -- -- -- -- 91 % 07/03/22 0120 -- -- -- -- 90 % 07/03/22 0119 -- -- -- -- (!) 89 % 07/02/22 2330 -- -- -- -- 94 % 07/02/22 2142 97.9 ??F (36.6 ??C) (!) 113 -- 147/77 93 % 07/02/22 1549 98.9 ??F (37.2 ??C) (!) 116 20 143/72 -- Outcome: Patient to be transferred to ICU pending bed placement. Herb Mckeon, RN Rapid Response Nurse MOTIVE PAINT TECHNICIAN documented in this encounter Plan of Treatment Upcoming Encounters Date Type Department Care Team (Late st Contact Info) Description 12/05/2024 1:00 PM CDT Office Visit [facility] - Neurology [address] [place] [address], [place] [phone] Sean Raymundo, [address] [place] [phone] Scheduled Orders Name Type Priority Associated Diagnoses Order Schedule INITIATE SBT (VENTILATOR LIBERATION TRIAL) PROTOCOL Respiratory Care Routine ONCE for 1 Occurrences starting 07/05/2022 until 07/05/2022 OXYGEN WITH TITRATION PROTOCOL Respiratory Care Routine ONCE for 1 Occurrences starting 07/15/2022 until 07/15/2022 documented as of this encounter Procedures Procedure Name Priority Date/Time Associated Diagnosis Comments CBC W AUTO DIFFERENTIAL AM Draw 07/21/2022 2:18 AM AUTOMOTIVE PAINT TECHNICIAN BASIC METABOLIC PANEL (CALCIUM TOTAL) AM Draw 07/21/2022 2:18 AM AUTOMOTIVE PAINT TECHNICIAN PHOSPHORUS BLOOD Routine 07/21/2022 2:18 AM AUTOMOTIVE PAINT TECHNICIAN MAGNESIUM BLOOD Routine 07/21/2022 2:18 AM AUTOMOTIVE PAINT TECHNICIAN CBC W AUTO DIFFERENTIAL AM Draw 07/20/2022 3:05 AM AUTOMOTIVE PAINT TECHNICIAN BASIC METABOLIC PANEL (CALCIUM TOTAL) AM Draw 07/20/2022 3:05 AM AUTOMOTIVE PAINT TECHNICIAN PHOSPHORUS BLOOD Routine 07/20/2022 3:05 AM AUTOMOTIVE PAINT TECHNICIAN MAGNESIUM BLOOD Routine 07/20/2022 3:05 AM AUTOMOTIVE PAINT TECHNICIAN CBC W AUTO DIFFERENTIAL AM Draw 07/19/2022 3:22 AM AUTOMOTIVE PAINT TECHNICIAN BASIC METABOLIC PANEL (CALCIUM TOTAL) AM Draw 07/19/2022 3:22 AM AUTOMOTIVE PAINT TECHNICIAN PHOSPHORUS BLOOD Routine 07/19/2022 3:22 AM AUTOMOTIVE PAINT TECHNICIAN MAGNESIUM BLOOD Routine 07/19/2022 3:22 AM AUTOMOTIVE PAINT TECHNICIAN CBC W AUTO DIFFERENTIAL AM Draw 07/18/2022 3:44 AM AUTOMOTIVE PAINT TECHNICIAN BASIC METABOLIC PANEL (CALCIUM TOTAL) AM Draw 07/18/2022 3:44 AM AUTOMOTIVE PAINT TECHNICIAN PHOSPHORUS BLOOD Routine 07/18/2022 3:44 AM AUTOMOTIVE PAINT TECHNICIAN MAGNESIUM BLOOD Routine 07/18/2022 3:44 AM AUTOMOTIVE PAINT TECHNICIAN CBC W AUTO DIFFERENTIAL AM Draw 07/17/2022 4:12 AM AUTOMOTIVE PAINT TECHNICIAN BASIC METABOLIC PANEL (CALCIUM TOTAL) AM Draw 07/17/2022 4:12 AM AUTOMOTIVE PAINT TECHNICIAN PHOSPHORUS BLOOD Routine 07/17/2022 4:12 AM AUTOMOTIVE PAINT TECHNICIAN MAGNESIUM BLOOD Routine 07/17/2022 4:12 AM AUTOMOTIVE PAINT TECHNICIAN CBC W AUTO DIFFERENTIAL AM Draw 07/16/2022 5:19 AM AUTOMOTIVE PAINT TECHNICIAN BASIC METABOLIC PANEL (CALCIUM TOTAL) AM Draw 07/16/2022 5:19 AM AUTOMOTIVE PAINT TECHNICIAN PHOSPHORUS BLOOD Routine 07/16/2022 5:19 AM AUTOMOTIVE PAINT TECHNICIAN MAGNESIUM BLOOD Routine 07/16/2022 5:19 AM AUTOMOTIVE PAINT TECHNICIAN XR CHEST 1VW PORTABLE STAT 07/16/2022 1:38 AM AUTOMOTIVE PAINT TECHNICIAN Aspiration into airway, subsequent encounter PATHOLOGY TISSUE Routine 07/15/2022 9:52 AM AUTOMOTIVE PAINT TECHNICIAN Dysphagia, oropharyngeal phase DIVERTICULECTOMY ESOPHAGEAL/ZENKERS 07/15/2022 8:11 AM AUTOMOTIVE PAINT TECHNICIAN Dysphagia, oropharyngeal phase Special Needs SUPINE TYPE + SCREEN PANEL STAT 07/15/2022 7 :05 AM AUTOMOTIVE PAINT TECHNICIAN CBC W AUTO DIFFERENTIAL AM Draw 07/15/2022 4:01 AM AUTOMOTIVE PAINT TECHNICIAN BASIC METABOLIC PANEL (CALCIUM TOTAL) AM Draw 07/15/2022 4:01 AM AUTOMOTIVE PAINT TECHNICIAN PHOSPHORUS BLOOD Routine 07/15/2022 4:01 AM AUTOMOTIVE PAINT TECHNICIAN MAGNESIUM BLOOD Routine 07/15/2022 4:01 AM AUTOMOTIVE PAINT TECHNICIAN OT EVAL AND TREAT Routine 07/14/2022 10:34 AM AUTOMOTIVE PAINT TECHNICIAN PT EVAL AND TREAT Routine 07/14/2022 10:34 AM AUTOMOTIVE PAINT TECHNICIAN CBC W AUTO DIFFERENTIAL AM Draw 07/14/2022 4:11 AM AUTOMOTIVE PAINT TECHNICIAN BASIC METABOLIC PANEL (CALCIUM TOTAL) AM Draw 07/14/2022 4:11 AM AUTOMOTIVE PAINT TECHNICIAN PHOSPHORUS BLOOD Routine 07/14/2022 4:11 AM AUTOMOTIVE PAINT TECHNICIAN MAGNESIUM BLOOD Routine 07/14/2022 4:11 AM AUTOMOTIVE PAINT TECHNICIAN CBC W AUTO DIFFERENTIAL AM Draw 07/13/2022 4:13 AM AUTOMOTIVE PAINT TECHNICIAN BASIC METABOLIC PANEL (CALCIUM TOTAL) AM Draw 07/13/2022 4:13 AM AUTOMOTIVE PAINT TECHNICIAN PHOSPHORUS BLOOD Routine 07/13/2022 4:13 AM AUTOMOTIVE PAINT TECHNICIAN MAGNESIUM BLOOD Routine 07/13/2022 4:13 AM AUTOMOTIVE PAINT TECHNICIAN CBC W AUTO DIFFERENTIAL AM Draw 07/12/2022 4:50 AM AUTOMOTIVE PAINT TECHNICIAN BASIC METABOLIC PANEL (CALCIUM TOTAL) AM Draw 07/12/2022 4:50 AM AUTOMOTIVE PAINT TECHNICIAN PHOSPHORUS BLOOD Routine 07/12/2022 4:50 AM AUTOMOTIVE PAINT TECHNICIAN MAGNESIUM BLOOD Routine 07/12/2022 4:50 AM AUTOMOTIVE PAINT TECHNICIAN CBC W AUTO DIFFERENTIAL AM Draw 07/11/2022 12:40 AM AUTOMOTIVE PAINT TECHNICIAN BASIC METABOLIC PANEL (CALCIUM TOTAL) AM Draw 07/11/2022 12:40 AM AUTOMOTIVE PAINT TECHNICIAN PHOSPHORUS BLOOD Routine 07/11/2022 12:40 AM AUTOMOTIVE PAINT TECHNICIAN MAGNESIUM BLOOD Routine 07/11/2022 12:40 AM AUTOMOTIVE PAINT TECHNICIAN CK BLOOD Add on 07/11/2022 12:40 AM AUTOMOTIVE PAINT TECHNICIAN CBC W AUTO DIFFERENTIAL AM Draw 07/10/2022 12:05 AM AUTOMOTIVE PAINT TECHNICIAN BASIC METABOLIC PANEL (CALCIUM TOTAL) AM Draw 07/10/2022 12:05 AM AUTOMOTIVE PAINT TECHNICIAN PHOSPHORUS BLOOD Routine 07/10/2022 12:05 AM AUTOMOTIVE PAINT TECHNICIAN MAGNESIUM BLOOD Routine 07/10/2022 12:05 AM AUTOMOTIVE PAINT TECHNICIAN CBC W AUTO DIFFERENTIAL AM Draw 07/09/2022 3:03 AM AUTOMOTIVE PAINT TECHNICIAN BASIC METABOLIC PANEL (CALCIUM TOTAL) Routine 07/09/2022 3:03 AM AUTOMOTIVE PAINT TECHNICIAN PHOSPHORUS BLOOD Routine 07/09/2022 3:03 AM AUTOMOTIVE PAINT TECHNICIAN MAGNESIUM BLOOD Routine 07/09/2022 3:03 AM AUTOMOTIVE PAINT TECHNICIAN VALPROIC ACID LEVEL Routine 07/09/2022 3 :03 AM AUTOMOTIVE PAINT TECHNICIAN BASIC METABOLIC PANEL (CALCIUM TOTAL) Routine 07/08/2022 8:46 PM AUTOMOTIVE PAINT TECHNICIAN BASIC METABOLIC PANEL (CALCIUM TOTAL) Routine 07/08/2022 12:22 PM AUTOMOTIVE PAINT TECHNICIAN CBC W AUTO DIFFERENTIAL AM Draw 07/08/2022 3:34 AM AUTOMOTIVE PAINT TECHNICIAN BASIC METABOLIC PANEL (CALCIUM TOTAL) Routine 07/08/2022 3:34 AM AUTOMOTIVE PAINT TECHNICIAN PHOSPHORUS BLOOD Routine 07/08/2022 3:34 AM AUTOMOTIVE PAINT TECHNICIAN MAGNESIUM BLOOD Routine 07/08/2022 3:34 AM AUTOMOTIVE PAINT TECHNICIAN BASIC METABOLIC PANEL (CALCIUM TOTAL) Routine 07/07/2022 7:57 PM AUTOMOTIVE PAINT TECHNICIAN BASIC METABOLIC PANEL (CALCIUM TOTAL) Routine 07/07/2022 12:05 PM AUTOMOTIVE PAINT TECHNICIAN CARDIAC EKG ORDER 07/07/2022 10:38 AM AUTOMOTIVE PAINT TECHNICIAN XR CHEST 1VW PORTABLE STAT 07/07/2022 8:37 AM AUTOMOTIVE PAINT TECHNICIAN Seizures (HCC) Aspiration into airway, subsequent encounter CBC W AUTO DIFFERENTIAL AM Draw 07/07/2022 3:45 AM AUTOMOTIVE PAINT TECHNICIAN BASIC METABOLIC PANEL (CALCIUM TOTAL) Routine 07/07/2022 3:45 AM AUTOMOTIVE PAINT TECHNICIAN TRIGLYCERIDES BLOOD AM Draw 07/07/2022 3 :45 AM AUTOMOTIVE PAINT TECHNICIAN PHOSPHORUS BLOOD Routine 07/07/2022 3:45 AM AUTOMOTIVE PAINT TECHNICIAN MAGNESIUM BLOOD Routine 07/07/2022 3:45 AM AUTOMOTIVE PAINT TECHNICIAN VALPROIC ACID LEVEL Routine 07/07/2022 3 :45 AM AUTOMOTIVE PAINT TECHNICIAN BASIC METABOLIC PANEL (CALCIUM TOTAL) Routine 07/06/2022 8:25 PM AUTOMOTIVE PAINT TECHNICIAN BASIC METABOLIC PANEL (CALCIUM TOTAL) Routine 07/06/2022 12:18 PM AUTOMOTIVE PAINT TECHNICIAN EEG VIDEO MONITORING Routine 07/06/2022 10:50 AM AUTOMOTIVE PAINT TECHNICIAN BLOOD GASES ART + COOX PANEL Routine 07/06/2022 5:18 AM AUTOMOTIVE PAINT TECHNICIAN CBC W AUTO DIFFERENTIAL AM Draw 07/06/2022 3:49 AM AUTOMOTIVE PAINT TECHNICIAN BASIC METABOLIC PANEL (CALCIUM TOTAL) Routine 07/06/2022 3:49 AM AUTOMOTIVE PAINT TECHNICIAN PHOSPHORUS BLOOD Routine 07/06/2022 3:49 AM AUTOMOTIVE PAINT TECHNICIAN MAGNESIUM BLOOD Routine 07/06/2022 3:49 AM AUTOMOTIVE PAINT TECHNICIAN BLOOD GASES ART + COOX PANEL Timed 07/05/2022 10:42 PM AUTOMOTIVE PAINT TECHNICIAN CULTURE BRONCHIAL WASHING+GRAM STAIN Routine 07/05/2022 10:31 PM AUTOMOTIVE PAINT TECHNICIAN CLOBAZAM QUANT BLOOD RINKU 07/05/2022 10:30 PM AUTOMOTIVE PAINT TECHNICIAN VALPROIC ACID FREE+TOTAL PANEL RINKU 07/05/2022 10:30 PM AUTOMOTIVE PAINT TECHNICIAN XR CHEST 1VW PORTABLE STAT 07/05/2022 10:14 PM AUTOMOTIVE PAINT TECHNICIAN Pulmonary infiltrate BASIC METABOLIC PANEL (CALCIUM TOTAL) Routine 07/05/2022 8:39 PM AUTOMOTIVE PAINT TECHNICIAN XR CHEST 1VW PORTABLE STAT 07/05/2022 5:23 PM AUTOMOTIVE PAINT TECHNICIAN Atelectasis, right XR CHEST 1VW PORTABLE STAT 07/05/2022 9:41 AM AUTOMOTIVE PAINT TECHNICIAN Acute respiratory failure with hypoxia (HCC) CBC W AUTO DIFFERENTIAL AM Draw 07/05/2022 2:26 AM AUTOMOTIVE PAINT TECHNICIAN BASIC METABOLIC PANEL (CALCIUM TOTAL) AM Draw 07/05/2022 2:26 AM AUTOMOTIVE PAINT TECHNICIAN PHOSPHORUS BLOOD Routine 07/05/2022 2:26 AM AUTOMOTIVE PAINT TECHNICIAN MAGNESIUM BLOOD Routine 07/05/2022 2:26 AM AUTOMOTIVE PAINT TECHNICIAN XR CHEST 1VW PORTABLE STAT 07/04/2022 1:12 PM AUTOMOTIVE PAINT TECHNICIAN Aspiration into airway, sequela XR CHEST 1VW PORTABLE STAT 07/04/2022 10:27 AM AUTOMOTIVE PAINT TECHNICIAN Aspiration pneumonitis (HCC) TSH REFLEX FREE T4 Routine 07/04/2022 1: 45 AM AUTOMOTIVE PAINT TECHNICIAN URINALYSIS REFLEX TO MICROSCOPIC NO CULTURE Routine 07/04/2022 1:45 AM AUTOMOTIVE PAINT TECHNICIAN CULTURE URINE Routine 07/04/2022 1:45 AM AUTOMOTIVE PAINT TECHNICIAN CBC W AUTO DIFFERENTIAL AM Draw 07/04/2022 1:45 AM AUTOMOTIVE PAINT TECHNICIAN BASIC METABOLIC PANEL (CALCIUM TOTAL) AM Draw 07/04/2022 1:45 AM AUTOMOTIVE PAINT TECHNICIAN PHOSPHORUS BLOOD Routine 07/04/2022 1:45 AM AUTOMOTIVE PAINT TECHNICIAN MAGNESIUM BLOOD Routine 07/04/2022 1:45 AM AUTOMOTIVE PAINT TECHNICIAN VANCOMYCIN LEVEL RANDOM Routine 07/04/2022 1:45 AM AUTOMOTIVE PAINT TECHNICIAN BLOOD GASES ART + COOX PANEL STAT 07/03/2022 5:39 PM AUTOMOTIVE PAINT TECHNICIAN XR CHEST 1VW PORTABLE STAT 07/03/2022 4:03 PM AUTOMOTIVE PAINT TECHNICIAN Pulmonary infiltrate Acute on chronic respiratory failure with hypoxia (HCC) XR CHEST 1VW PORTABLE STAT 07/03/2022 10:03 AM AUTOMOTIVE PAINT TECHNICIAN Aspiration into airway, sequela CBC W AUTO DIFFERENTIAL AM Draw 07/03/2022 4:05 AM AUTOMOTIVE PAINT TECHNICIAN BASIC METABOLIC PANEL (CALCIUM TOTAL) AM Draw 07/03/2022 4:05 AM AUTOMOTIVE PAINT TECHNICIAN VANCOMYCIN LEVEL RANDOM Routine 07/03/2022 4:05 AM AUTOMOTIVE PAINT TECHNICIAN URINALYSIS W/MICROSCOPIC NO CULTURE Routine 07/02/2022 11:37 AM AUTOMOTIVE PAINT TECHNICIAN SODIUM URINE RANDOM Routine 07/02/2022 11:37 AM AUTOMOTIVE PAINT TECHNICIAN CREATININE URINE RANDOM Routine 07/02/2022 11:37 AM AUTOMOTIVE PAINT TECHNICIAN XR CHEST 1VW PORTABLE Routine 07/02/2022 10:30 AM AUTOMOTIVE PAINT TECHNICIAN Dysphagia, oropharyngeal phase CBC W AUTO DIFFERENTIAL AM Draw 07/02/2022 5:31 AM AUTOMOTIVE PAINT TECHNICIAN BASIC METABOLIC PANEL (CALCIUM TOTAL) AM Draw 07/02/2022 5:31 AM AUTOMOTIVE PAINT TECHNICIAN VANCOMYCIN LEVEL RANDOM Timed 07/02/2022 5:31 AM AUTOMOTIVE PAINT TECHNICIAN CBC W AUTO DIFFERENTIAL AM Draw 07/01/2022 4:34 PM AUTOMOTIVE PAINT TECHNICIAN BASIC METABOLIC PANEL (CALCIUM TOTAL) AM Draw 07/01/2022 4:34 PM AUTOMOTIVE PAINT TECHNICIAN CK BLOOD Routine 07/01/2022 4:34 PM AUTOMOTIVE PAINT TECHNICIAN VANCOMYCIN LEVEL TROUGH Timed 07/01/2022 4:34 PM AUTOMOTIVE PAINT TECHNICIAN US PELVIS LIMITED Routine 07/01/2022 3:0 0 PM AUTOMOTIVE PAINT TECHNICIAN History of CVA (cerebrovascular accident) GLUCOSE - POINT OF CARE Routine 07/01/2022 5:07 AM AUTOMOTIVE PAINT TECHNICIAN CULTURE BLOOD FUNGUS Timed 06/30/2022 8:45 PM AUTOMOTIVE PAINT TECHNICIAN RESPIRATORY PANEL WITH SARS-COV-2 BY PCR (STL) Routine 06/30/2022 7:52 PM AUTOMOTIVE PAINT TECHNICIAN CULTURE BLOOD Timed 06/30/2022 4:25 PM AUTOMOTIVE PAINT TECHNICIAN CULTURE BLOOD Timed 06/30/2022 4:11 PM AUTOMOTIVE PAINT TECHNICIAN VAS RIGHT VENOUS DUPLEX UE Routine 06/30/2022 3:22 PM AUTOMOTIVE PAINT TECHNICIAN Aspiration pneumonitis (HCC) Aspiration into lower respiratory tract, initial encounter CARDIAC EKG ORDER 06/30/2022 10:43 AM AUTOMOTIVE PAINT TECHNICIAN CBC W/O DIFFERENTIAL AM Draw 06/30/2022 10:39 AM AUTOMOTIVE PAINT TECHNICIAN BASIC METABOLIC PANEL (CALCIUM TOTAL) AM Draw 06/30/2022 10:39 AM AUTOMOTIVE PAINT TECHNICIAN HEPATIC FUNCTION PANEL Routine 10:39 AM AUTOMOTIVE PAINT TECHNICIAN VANCOMYCIN LEVEL TROUGH Timed 06/30/2022 10:39 AM AUTOMOTIVE PAINT TECHNICIAN VANCOMYCIN LEVEL TROUGH Timed 06/30/2022 7:07 AM AUTOMOTIVE PAINT TECHNICIAN EKG 12-LEAD STAT 06/30/2022 3:51 AM AUTOMOTIVE PAINT TECHNICIAN Paroxysmal tachycardia, unspecified (HCC) CULTURE MRSA Routine 06/29/2022 12:42 PM AUTOMOTIVE PAINT TECHNICIAN CBC W/O DIFFERENTIAL AM Draw 06/29/2022 7:09 AM AUTOMOTIVE PAINT TECHNICIAN BASIC METABOLIC PANEL (CALCIUM TOTAL) AM Draw 06/29/2022 7:09 AM AUTOMOTIVE PAINT TECHNICIAN PROCALCITONIN LEVEL Timed 06/28/2022 5 :30 PM AUTOMOTIVE PAINT TECHNICIAN LACTIC ACID BLOOD STAT 06/28/2022 11:08 AM AUTOMOTIVE PAINT TECHNICIAN LACTIC ACID BLOOD STAT 06/28/2022 6:3 1 AM AUTOMOTIVE PAINT TECHNICIAN URINALYSIS REFLEX TO MICROSCOPIC NO CULTURE STAT 06/28/2022 3:48 AM AUTOMOTIVE PAINT TECHNICIAN LEGIONELLA ANTIGEN URINE STAT 06/28/2022 3:48 AM AUTOMOTIVE PAINT TECHNICIAN LACTIC ACID BLOOD REFLEX TO REPEAT Timed STAT 06/28/2022 1:41 AM AUTOMOTIVE PAINT TECHNICIAN LACTIC ACID REPEAT REFLEX Timed STAT 06/28/2022 1:41 AM AUTOMOTIVE PAINT TECHNICIAN TROPONIN I Timed 06/28/2022 1:41 AM AUTOMOTIVE PAINT TECHNICIAN CT CHEST PE W ABD PELVIS W CONT STAT 06/28/2022 1:05 AM AUTOMOTIVE PAINT TECHNICIAN Hypoxia CBC W AUTO DIFFERENTIAL STAT 06/27/2022 11:30 PM AUTOMOTIVE PAINT TECHNICIAN EKG 12-LEAD Routine 06/27/2022 10:40 PM AUTOMOTIVE PAINT TECHNICIAN Hypoxia SARS-COV-2 (COVID-19) FLU A/B RSV PCR RAPID STAT 06/27/2022 10:23 PM AUTOMOTIVE PAINT TECHNICIAN PT-INR [facility] STAT 06/27/2022 10:15 PM AUTOMOTIVE PAINT TECHNICIAN LACTIC ACID BLOOD REFLEX TO REPEAT STAT 06/27/2022 10:15 PM AUTOMOTIVE PAINT TECHNICIAN LACTIC ACID REPEAT REFLEX STAT 06/27/2022 10:15 PM AUTOMOTIVE PAINT TECHNICIAN TROPONIN I STAT 06/27/2022 10:15 PM AUTOMOTIVE PAINT TECHNICIAN CULTURE BLOOD Timed 06/27/2022 10:15 PM AUTOMOTIVE PAINT TECHNICIAN COMPREHENSIVE METABOLIC PANEL STAT 06/27/2022 10:15 PM AUTOMOTIVE PAINT TECHNICIAN MAGNESIUM BLOOD STAT 06/27/2022 10:15 PM AUTOMOTIVE PAINT TECHNICIAN LIPASE BLOOD STAT 06/27/2022 10:15 PM AUTOMOTIVE PAINT TECHNICIAN HIGH FLOW NASAL CANNULA TX STAT 06/27/2022 10:02 PM AUTOMOTIVE PAINT TECHNICIAN XR CHEST 1VW PORTABLE STAT 06/27/2022 10:01 PM AUTOMOTIVE PAINT TECHNICIAN Hypoxia CULTURE BLOOD Timed 06/27/2022 10:00 PM AUTOMOTIVE PAINT TECHNICIAN documented in this encounter Results * (ABNORMAL) BASIC METABOLIC PANEL (CALCIUM TOTAL) (07/21/2022 2:18 AM AUTOMOTIVE PAINT TECHNICIAN) BUN 19 7 - 26 mg/dL 07/21/2022 2:54 AM [facility] Creatinine 0.53(L) 0.71 - 1.16 mg/dL 07/21/2022 2:54 AM [facility] Sodium 142 136 - 145 mmol/L 07/21/2022 2:54 AM [facility] Potassium 3.9 3.5 - 4.5 mmol/L 07/21/2022 2:54 AM [facility] Chloride 109(H) 98 - 107 mmol/L 07/21/2022 2:54 AM [facility] CO2 26 22 - 29 mmol/L 07/21/2022 2:54 AM [facility] Glucose 113 70 - 115 mg/dL 07/21/2022 2:54 AM [facility] Calcium 9.2 8.4 - 10.2 mg/dL 07/21/2022 2:54 AM [facility] Anion Gap 11 8 - 18 07/21/2022 2:54 AM [facility] BUN/Creatinine Ratio 36(H) 7 - 23 07/21/2022 2:54 AM [facility] Osmolality Calculated 297 270 - 300 mOsm/kg 07/21/2022 2:54 AM [facility] eGFR by CKD-EPI >90 >=90 mL/min/1.7 3 m2 07/21/2022 2:54 AM [facility] Blood BLOOD SPECIMEN / Unknown Venipuncture / Unknown 07/21/2022 2:18 AM AUTOMOTIVE PAINT TECHNICIAN 07/21/2022 2:29 AM AUTOMOTIVE PAINT TECHNICIAN Tolu Leach MD LAB - CHEMISTRY ORDE GATITO [facility] [address] [place] [id number], [facility] [phone] * PHOSPHORUS BLOOD (07/21/2022 2:18 AM AUTOMOTIVE PAINT TECHNICIAN) Phosphorus 3.0 2.8 - 5.1 mg/dL 07/21/2022 2:54 AM AUTOMOTIVE PAINT TECHNICIAN [facility] Blood BLOOD SPECIMEN / Unknown Venipuncture / Unknown 07/21/2022 2:18 AM AUTOMOTIVE PAINT TECHNICIAN 07/21/2022 2:29 AM AUTOMOTIVE PAINT TECHNICIAN Randy Diaz MD LAB - CHEMISTRY MARSHAL MEDEROS Performing Organization Address City/[facility]/ZIP Co de Phone Number [address] [address], [facility] [phone] * MAGNESIUM BLOOD (07/21/2022 2:18 AM AUTOMOTIVE PAINT TECHNICIAN) Pathologist [facility] Magnesium 1.6 1.6 - 2.6 mg/dL 07/21/2022 2:54 AM [facility] Blood BLOOD SPECIMEN / Unknown Venipuncture / Unknown 07/21/2022 2:18 AM AUTOMOTIVE PAINT TECHNICIAN 07/21/2022 2:29 AM AUTOMOTIVE PAINT TECHNICIAN Randy Diaz MD LAB - CHEMISTRY MARSHAL MEDEROS Performing Organization Address City/[facility]/ZIP Co de Phone Number [address] [address], [facility] [phone] * (ABNORMAL) CBC W AUTO DIFFERENTIAL (07/21/2022 2:18 AM AUTOMOTIVE PAINT TECHNICIAN) WBC 10.2 3.5 - 10.5 10? 3 /uL 07/21/2022 2:38 AM [facility] RBC 2.45(L) 4.30 - 5.70 10? 6 /uL 07/21/2022 2:38 AM [facility] Hemoglobin 7.4(L) 12.0 - 17.6 g/dL 07/21/2022 2:38 AM [facility] Hematocrit 22.9(L) 35.2 - 51.7 % 07/21/2022 2:38 AM [facility] MCV 93.5 80.7 - 98.3 fL 07/21/2022 2:38 AM [facility] MCH 30.2 26.7 - 34.0 pg 07/21/2022 2:38 AM [facility] MCHC 32.3 30.8 - 35.9 g/dL 07/21/2022 2:38 AM [facility] RDW-SD 48.6 36.0 - 50.0 fL 07/21/2022 2:38 AM [facility] RDW-CV 14.6 11.2 - 14.8 % 07/21/2022 2:38 AM [facility] Platelet Count 252 150 - 400 10? 3 /uL 07/21/2022 2:38 AM [facility] MPV 12.7 9.4 - 12.9 fL 07/21/2022 2:38 AM [facility] nRBC Absolute 0.00 0 10? 3 /uL 07/21/2022 2:38 AM [facility] nRBC Auto 0.0 0 /100 WBC 07/21/2022 2:38 AM [facility] Neutrophils % 62.2 35.0 - 70.0 % 07/21/2022 2:38 AM [facility] Lymphocytes % 21.1 20.0 - 43.0 % 07/21/2022 2:38 AM [facility] Monocytes % 11.1 5.0 - 13.0 % 07/21/2022 2:38 AM [facility] Eosinophils % 5.0 0.0 - 6.0 % 07/21/2022 2:38 AM [facility] Basophil % 0.3 0.0 - 2.0 % 07/21/2022 2:38 AM [facility] Neutrophils Absolute 6.36 1.60 - 7.00 10? 3 /uL 07/21/2022 2:38 AM [facility] Lymphocyte Absolute 2.16 1.10 - 3.90 10? 3 /uL 07/21/2022 2:38 AM [facility] Monocytes Absolute 1.13(H) 0.26 - 1.07 10? 3 /uL 07/21/2022 2:38 AM [facility] Eosinophils Absolute 0.51(H) 0.00 - 0.47 10? 3 /uL 07/21/2022 2:38 AM [facility] Basophils Absolute 0.03 0.00 - 0.08 10? 3 /uL 07/21/2022 2:38 AM [facility] Immature Granulocytes % 0.3 0.0 - 1.0 % 07/21/2022 2:38 AM [facility] Immature Granulocytes Absolute 0.03 07/21/2022 2:38 AM [facility] Blood BLOOD SPECIMEN / Unknown Venipuncture / Unknown 07/21/2022 2:18 AM AUTOMOTIVE PAINT TECHNICIAN 07/21/2022 2:[address] [facility] Artur Mcgraw MD LAB - HEMATOLOGY OR DERABLES [facility] [address] [place] [address], [facility] [phone] * (ABNORMAL) BASIC METABOLIC PANEL (CALCIUM TOTAL) (07/20/2022 3:[address] [facility]) BUN 23 7 - 26 mg/dL 07/20/2022 3:46 AM [facility] Creatinine 0.71 0.71 - 1.16 mg/dL 07/20/2022 3:46 AM [facility] Sodium 139 136 - 145 mmol/L 07/20/2022 3:46 AM [facility] Potassium 3.6 3.5 - 4.5 mmol/L 07/20/2022 3:46 AM [facility] Chloride 106 98 - 107 mmol/L 07/20/2022 3:46 AM [facility] CO2 25 22 - 29 mmol/L 07/20/2022 3:46 AM [facility] Glucose 108 70 - 115 mg/dL 07/20/2022 3:46 AM [facility] Calcium 9.4 8.4 - 10.2 mg/dL 07/20/2022 3:46 AM [facility] Anion Gap 12 8 - 18 07/20/2022 3:46 AM [facility] BUN/Creatinine Ratio 32(H) 7 - 23 07/20/2022 3:46 AM [facility] Osmolality Calculated 292 270 - 300 mOsm/kg 07/20/2022 3:46 AM [facility] eGFR by CKD-EPI >90 >=90 mL/min/1.7 3 m2 07/20/2022 3:46 AM [facility] Blood BLOOD SPECIMEN / Unknown Venipuncture / Unknown 07/20/2022 3:05 AM AUTOMOTIVE PAINT TECHNICIAN 07/20/2022 3:15 AM AUTOMOTIVE PAINT TECHNICIAN Tolu Leach MD LAB - CHEMISTRY ORDByron MEDEROS [address] [address], [place] [phone] * PHOSPHORUS BLOOD (07/20/2022 3:05 AM AUTOMOTIVE PAINT TECHNICIAN) Phosphorus 2.8 2.8 - 5.1 mg/dL 07/20/2022 3:46 AM [facility] Blood BLOOD SPECIMEN / Unknown Venipuncture / Unknown 07/20/2022 3:05 AM AUTOMOTIVE PAINT TECHNICIAN 07/20/2022 3:15 AM AUTOMOTIVE PAINT TECHNICIAN Randy Diaz MD LAB - CHEMISTRY MARSHAL MEDEROS Performing Organization Address City/[facility]/ZIP Co de Phone Number [address] [address], [place] [phone] * MAGNESIUM BLOOD (07/20/2022 3:05 AM AUTOMOTIVE PAINT TECHNICIAN) Magnesium 1.6 1.6 - 2.6 mg/dL 07/20/2022 3:46 AM AUTOMOTIVE PAINT TECHNICIAN [facility] Blood BLOOD SPECIMEN / Unknown Venipuncture / Unknown 07/20/2022 3:05 AM AUTOMOTIVE PAINT TECHNICIAN 07/20/2022 3:15 AM AUTOMOTIVE PAINT TECHNICIAN Randy Diaz MD LAB - CHEMISTRY MARSHAL MEDEROS Performing Organization Address City/[facility]/ZIP Co de Phone Number [address] [address], [place] [phone] * (ABNORMAL) CBC W AUTO DIFFERENTIAL (07/20/2022 3:[address] [facility]) WBC 9.3 3.5 - 10.5 10? 3 /uL 07/20/2022 3:19 AM [facility] RBC 2.49(L) 4.30 - 5.70 10? 6 /uL 07/20/2022 3:19 AM [facility] Hemoglobin 7.8(L) 12.0 - 17.6 g/dL 07/20/2022 3:19 AM [facility] Hematocrit 23.1(L) 35.2 - 51.7 % 07/20/2022 3:19 AM [facility] MCV 92.8 80.7 - 98.3 fL 07/20/2022 3:19 AM [facility] MCH 31.3 26.7 - 34.0 pg 07/20/2022 3:19 AM [facility] MCHC 33.8 30.8 - 35.9 g/dL 07/20/2022 3:19 AM [facility] RDW-SD 48.2 36.0 - 50.0 fL 07/20/2022 3:19 AM [facility] RDW-CV 14.5 11.2 - 14.8 % 07/20/2022 3:19 AM [facility] Platelet Count 283 150 - 400 10? 3 /uL 07/20/2022 3:19 AM [facility] MPV 12.2 9.4 - 12.9 fL 07/20/2022 3:19 AM [facility] nRBC Absolute 0.00 0 10? 3 /uL 07/20/2022 3:19 AM [facility] nRBC Auto 0.0 0 /100 WBC 07/20/2022 3:19 AM [facility] Neutrophils % 61.2 35.0 - 70.0 % 07/20/2022 3:19 AM [facility] Lymphocytes % 19.5(L) 20.0 - 43.0 % 07/20/2022 3:19 AM [facility] Monocytes % 12.5 5.0 - 13.0 % 07/20/2022 3:19 AM [facility] Eosinophils % 6.2(H) 0.0 - 6.0 % 07/20/2022 3:19 AM [facility] Basophil % 0.3 0.0 - 2.0 % 07/20/2022 3:19 AM [facility] Neutrophils Absolute 5.69 1.60 - 7.00 10? 3 /uL 07/20/2022 3:19 AM [facility] Lymphocyte Absolute 1.82 1.10 - 3.90 10? 3 /uL 07/20/2022 3:19 AM [facility] Monocytes Absolute 1.16(H) 0.26 - 1.07 10? 3 /uL 07/20/2022 3:19 AM [facility] Eosinophils Absolute 0.58(H) 0.00 - 0.47 10? 3 /uL 07/20/2022 3:19 AM [facility] Basophils Absolute 0.03 0.00 - 0.08 10? 3 /uL 07/20/2022 3:19 AM [facility] Immature Granulocytes % 0.3 0.0 - 1.0 % 07/20/2022 3:19 AM [facility] Immature Granulocytes Absolute 0.03 07/20/2022 3:19 AM [facility] Blood BLOOD SPECIMEN / Unknown Venipuncture / Unknown 07/20/2022 3:05 AM AUTOMOTIVE PAINT TECHNICIAN 07/20/2022 3:[address] [facility] Artur Mcgraw MD LAB - HEMATOLOGY OR DERABLES Performing Organization Address [facility]/State/[facility] Co de Phone Number [facility] [address] [place] [address], [facility] [phone] * (ABNORMAL) BASIC METABOLIC PANEL (CALCIUM TOTAL) (07/19/2022 3:22 AM AUTOMOTIVE PAINT TECHNICIAN) BUN 21 7 - 26 mg/dL 07/19/2022 4:06 AM [facility] Creatinine 0.86 0.71 - 1.16 mg/dL 07/19/2022 4:06 AM [facility] Sodium 140 136 - 145 mmol/L 07/19/2022 4:06 AM [facility] Potassium 3.9 3.5 - 4.5 mmol/L 07/19/2022 4:06 AM [facility] Chloride 108(H) 98 - 107 mmol/L 07/19/2022 4:06 AM [facility] CO2 25 22 - 29 mmol/L 07/19/2022 4:06 AM [facility] Glucose 109 70 - 115 mg/dL 07/19/2022 4:06 AM [facility] Calcium 8.9 8.4 - 10.2 mg/dL 07/19/2022 4:06 AM [facility] Anion Gap 11 8 - 18 07/19/2022 4:06 AM [facility] BUN/Creatinine Ratio 24(H) 7 - 23 07/19/2022 4:06 AM [facility] Osmolality Calculated 294 270 - 300 mOsm/kg 07/19/2022 4:06 AM [facility] eGFR by CKD-EPI >90 >=90 mL/min/1.7 3 m2 07/19/2022 4:06 AM [facility] Blood BLOOD SPECIMEN / Unknown Venipuncture / Unknown 07/19/2022 3:22 AM AUTOMOTIVE PAINT TECHNICIAN 07/19/2022 3:28 AM AUTOMOTIVE PAINT TECHNICIAN Tolu Leach MD LAB - CHEMISTRY MARSHAL MEDEROS [address] [address], [facility] [phone] * PHOSPHORUS BLOOD (07/19/2022 3:22 AM AUTOMOTIVE PAINT TECHNICIAN) Phosphorus 2.8 2.8 - 5.1 mg/dL 07/19/2022 4:06 AM [facility] Blood BLOOD SPECIMEN / Unknown Venipuncture / Unknown 07/19/2022 3:22 AM AUTOMOTIVE PAINT TECHNICIAN 07/19/2022 3:28 AM AUTOMOTIVE PAINT TECHNICIAN Randy Diaz MD LAB - CHEMISTRY MARSHAL MEDEROS [address] [address], [place] [phone] * MAGNESIUM BLOOD (07/19/2022 3:22 AM AUTOMOTIVE PAINT TECHNICIAN) Pathologist [facility] Magnesium 1.7 1.6 - 2.6 mg/dL 07/19/2022 4:06 AM [facility] Blood BLOOD SPECIMEN / Unknown Venipuncture / Unknown 07/19/2022 3:22 AM AUTOMOTIVE PAINT TECHNICIAN 07/19/2022 3:28 AM AUTOMOTIVE PAINT TECHNICIAN Randy Diaz MD LAB - CHEMISTRY MARSHAL MEDEROS Performing Organization Address City/[facility] Co de Phone Number [facility] [address] [place] [address], [facility] [phone] * (ABNORMAL) CBC W AUTO DIFFERENTIAL (07/19/2022 3:22 AM AUTOMOTIVE PAINT TECHNICIAN) [facility] WBC 9.2 3.5 - 10.5 10? 3 /uL 07/19/2022 3:40 AM [facility] RBC 2.31(L) 4.30 - 5.70 10? 6 /uL 07/19/2022 3:40 AM [facility] Hemoglobin 7.1(L) 12.0 - 17.6 g/dL 07/19/2022 3:40 AM [facility] Hematocrit 21.6(L) 35.2 - 51.7 % 07/19/2022 3:40 AM [facility] MCV 93.5 80.7 - 98.3 fL 07/19/2022 3:40 AM [facility] MCH 30.7 26.7 - 34.0 pg 07/19/2022 3:40 AM [facility] MCHC 32.9 30.8 - 35.9 g/dL 07/19/2022 3:40 AM [facility] RDW-SD 48.3 36.0 - 50.0 fL 07/19/2022 3:40 AM [facility] RDW-CV 14.5 11.2 - 14.8 % 07/19/2022 3:40 AM [facility] Platelet Count 230 150 - 400 10? 3 /uL 07/19/2022 3:40 AM [facility] MPV 12.1 9.4 - 12.9 fL 07/19/2022 3:40 AM [facility] nRBC Absolute 0.00 0 10? 3 /uL 07/19/2022 3:40 AM [facility] nRBC Auto 0.0 0 /100 WBC 07/19/2022 3:40 AM [facility] Neutrophils % 61.9 35.0 - 70.0 % 07/19/2022 3:40 AM [facility] Lymphocytes % 19.6(L) 20.0 - 43.0 % 07/19/2022 3:40 AM [facility] Monocytes % 14.1(H) 5.0 - 13.0 % 07/19/2022 3:40 AM [facility] Eosinophils % 3.7 0.0 - 6.0 % 07/19/2022 3:40 AM [facility] Basophil % 0.2 0.0 - 2.0 % 07/19/2022 3:40 AM [facility] Neutrophils Absolute 5.69 1.60 - 7.00 10? 3 /uL 07/19/2022 3:40 AM [facility] Lymphocyte Absolute 1.80 1.10 - 3.90 10? 3 /uL 07/19/2022 3:40 AM [facility] Monocytes Absolute 1.30(H) 0.26 - 1.07 10? 3 /uL 07/19/2022 3:40 AM [facility] Eosinophils Absolute 0.34 0.00 - 0.47 10? 3 /uL 07/19/2022 3:40 AM [facility] Basophils Absolute 0.02 0.00 - 0.08 10? 3 /uL 07/19/2022 3:40 AM [facility] Immature Granulocytes % 0.5 0.0 - 1.0 % 07/19/2022 3:40 AM [facility] Immature Granulocytes Absolute 0.05 07/19/2022 3:40 AM [facility] Blood BLOOD SPECIMEN / Unknown Venipuncture / Unknown 07/19/2022 3:22 AM AUTOMOTIVE PAINT TECHNICIAN 07/19/2022 3:[address] [facility] Artur Mcgraw MD LAB - HEMATOLOGY OR DERABLES Performing Organization Address City/State/[facility] Co de Phone Number [facility] [address] [place] [address], [facility] [phone] * (ABNORMAL) BASIC METABOLIC PANEL (CALCIUM TOTAL) (07/18/2022 3:[address] [facility]) BUN 18 7 - 26 mg/dL 07/18/2022 4:26 AM [facility] Creatinine 0.94 0.71 - 1.16 mg/dL 07/18/2022 4:26 AM [facility] Sodium 140 136 - 145 mmol/L 07/18/2022 4:26 AM [facility] Potassium 3.6 3.5 - 4.5 mmol/L 07/18/2022 4:26 AM [facility] Chloride 109(H) 98 - 107 mmol/L 07/18/2022 4:26 AM [facility] CO2 25 22 - 29 mmol/L 07/18/2022 4:26 AM [facility] Glucose 107 70 - 115 mg/dL 07/18/2022 4:26 AM [facility] Calcium 8.8 8.4 - 10.2 mg/dL 07/18/2022 4:26 AM [facility] Anion Gap 10 8 - 18 07/18/2022 4:26 AM [facility] BUN/Creatinine Ratio 19 7 - 23 07/18/2022 4:26 AM [facility] Osmolality Calculated 292 270 - 300 mOsm/kg 07/18/2022 4:26 AM [facility] eGFR by CKD-EPI >90 >=90 mL/min/1.7 3 m2 07/18/2022 4:26 AM [facility] Blood BLOOD SPECIMEN / Unknown Venipuncture / Unknown 07/18/2022 3:44 AM AUTOMOTIVE PAINT TECHNICIAN 07/18/2022 3:[address] [facility] Tolu Leach MD LAB - CHEMISTRY MARSHAL MEDEROS [facility] [address] [place] [address], [facility] [phone] * PHOSPHORUS BLOOD (07/18/2022 3:[address] [facility]) Pathologist [facility] Phosphorus 2.9 2.8 - 5.1 mg/dL 07/18/2022 4:26 AM [facility] Blood BLOOD SPECIMEN / Unknown Venipuncture / Unknown 07/18/2022 3:44 AM AUTOMOTIVE PAINT TECHNICIAN 07/18/2022 3:56 AM AUTOMOTIVE PAINT TECHNICIAN Randy Diaz MD LAB - CHEMISTRY MARSHAL MEDEROS [address] [address], [facility] [phone] * MAGNESIUM BLOOD (07/18/2022 3:44 AM AUTOMOTIVE PAINT TECHNICIAN) Magnesium 1.7 1.6 - 2.6 mg/dL 07/18/2022 4:26 AM [facility] Blood BLOOD SPECIMEN / Unknown Venipuncture / Unknown 07/18/2022 3:44 AM AUTOMOTIVE PAINT TECHNICIAN 07/18/2022 3:56 AM AUTOMOTIVE PAINT TECHNICIAN Randy Diaz MD LAB - CHEMISTRY MARSHAL MEDEROS [address] [address], [facility] [phone] * (ABNORMAL) CBC W AUTO DIFFERENTIAL (07/18/2022 3:44 AM AUTOMOTIVE PAINT TECHNICIAN) WBC 8.6 3.5 - 10.5 10? 3 /uL 07/18/2022 4:10 AM [facility] RBC 2.33(L) 4.30 - 5.70 10? 6 /uL 07/18/2022 4:10 AM [facility] Hemoglobin 7.2(L) 12.0 - 17.6 g/dL 07/18/2022 4:10 AM [facility] Hematocrit 21.6(L) 35.2 - 51.7 % 07/18/2022 4:10 AM [facility] MCV 92.7 80.7 - 98.3 fL 07/18/2022 4:10 AM [facility] MCH 30.9 26.7 - 34.0 pg 07/18/2022 4:10 AM [facility] MCHC 33.3 30.8 - 35.9 g/dL 07/18/2022 4:10 AM [facility] RDW-SD 47.3 36.0 - 50.0 fL 07/18/2022 4:10 AM [facility] RDW-CV 14.3 11.2 - 14.8 % 07/18/2022 4:10 AM [facility] Platelet Count 201 150 - 400 10? 3 /uL 07/18/2022 4:10 AM [facility] MPV 12.5 9.4 - 12.9 fL 07/18/2022 4:10 AM [facility] nRBC Absolute 0.00 0 10? 3 /uL 07/18/2022 4:10 AM [facility] nRBC Auto 0.0 0 /100 WBC 07/18/2022 4:10 AM [facility] Neutrophils % 61.4 35.0 - 70.0 % 07/18/2022 4:10 AM [facility] Lymphocytes % 20.3 20.0 - 43.0 % 07/18/2022 4:10 AM [facility] Monocytes % 13.1(H) 5.0 - 13.0 % 07/18/2022 4:10 AM [facility] Eosinophils % 4.6 0.0 - 6.0 % 07/18/2022 4:10 AM [facility] Basophil % 0.1 0.0 - 2.0 % 07/18/2022 4:10 AM [facility] Neutrophils Absolute 5.27 1.60 - 7.00 10? 3 /uL 07/18/2022 4:10 AM [facility] Lymphocyte Absolute 1.74 1.10 - 3.90 10? 3 /uL 07/18/2022 4:10 AM [facility] Monocytes Absolute 1.12(H) 0.26 - 1.07 10? 3 /uL 07/18/2022 4:10 AM [facility] Eosinophils Absolute 0.39 0.00 - 0.47 10? 3 /uL 07/18/2022 4:10 AM [facility] Basophils Absolute 0.01 0.00 - 0.08 10? 3 /uL 07/18/2022 4:10 AM [facility] Immature Granulocytes % 0.5 0.0 - 1.0 % 07/18/2022 4:10 AM [facility] Immature Granulocytes Absolute 0.04 07/18/2022 4:10 AM [facility] Blood BLOOD SPECIMEN / Unknown Venipuncture / Unknown 07/18/2022 3:44 AM AUTOMOTIVE PAINT TECHNICIAN 07/18/2022 3:57 AM AUTOMOTIVE PAINT TECHNICIAN Artur Mcgraw MD LAB - HEMATOLOGY OR DERABLES [facility] [address] [place] [address], [facility] [phone] * (ABNORMAL) BASIC METABOLIC PANEL (CALCIUM TOTAL) (07/17/2022 4:[address] [facility]) BUN 16 7 - 26 mg/dL 07/17/2022 6:56 AM [facility] Creatinine 1.05 0.71 - 1.16 mg/dL 07/17/2022 6:56 AM [facility] Sodium 141 136 - 145 mmol/L 07/17/2022 6:56 AM [facility] Potassium 3.5 3.5 - 4.5 mmol/L 07/17/2022 6:56 AM [facility] Chloride 108(H) 98 - 107 mmol/L 07/17/2022 6:56 AM [facility] CO2 25 22 - 29 mmol/L 07/17/2022 6:56 AM [facility] Glucose 110 70 - 115 mg/dL 07/17/2022 6:56 AM [facility] Calcium 8.5 8.4 - 10.2 mg/dL 07/17/2022 6:56 AM [facility] Anion Gap 12 8 - 18 07/17/2022 6:56 AM [facility] BUN/Creatinine Ratio 15 7 - 23 07/17/2022 6:56 AM [facility] Osmolality Calculated 294 270 - 300 mOsm/kg 07/17/2022 6:56 AM [facility] eGFR by CKD-EPI 81(L) >=90 mL/min/1.7 3 m2 07/17/2022 6:56 AM [facility] Blood BLOOD SPECIMEN / Unknown Venipuncture / Unknown 07/17/2022 4:12 AM AUTOMOTIVE PAINT TECHNICIAN 07/17/2022 4:26 AM AUTOMOTIVE PAINT TECHNICIAN Tolu Leach MD LAB - CHEMISTRY MARSHAL MEDEROS Performing Organization Address City/[facility]/ZIP Co de Phone Number [address] [address], [place] [phone] * PHOSPHORUS BLOOD (07/17/2022 4:12 AM AUTOMOTIVE PAINT TECHNICIAN) Phosphorus 3.5 2.8 - 5.1 mg/dL 07/17/2022 5:54 AM AUTOMOTIVE PAINT TECHNICIAN [facility] Blood BLOOD SPECIMEN / Unknown Venipuncture / Unknown 07/17/2022 4:12 AM AUTOMOTIVE PAINT TECHNICIAN 07/17/2022 4:26 AM AUTOMOTIVE PAINT TECHNICIAN Randy Diaz MD LAB - CHEMISTRY MARSHAL MEDEROS Performing Organization Address [facility]/ZIP Co de Phone Number [address] [address], [place] [phone] * MAGNESIUM BLOOD (07/17/2022 4:12 AM AUTOMOTIVE PAINT TECHNICIAN) Magnesium 1.8 1.6 - 2.6 mg/dL 07/17/2022 4:56 AM AUTOMOTIVE PAINT TECHNICIAN [facility] Blood BLOOD SPECIMEN / Unknown Venipuncture / Unknown 07/17/2022 4:12 AM AUTOMOTIVE PAINT TECHNICIAN 07/17/2022 4:26 AM AUTOMOTIVE PAINT TECHNICIAN Randy Diaz MD LAB - CHEMISTRY MARSHAL MEDEROS Performing Organization Address [facility]/ZIP Co de Phone Number [address] [address], [place] [phone] * (ABNORMAL) CBC W AUTO DIFFERENTIAL (07/17/2022 4:12 AM AUTOMOTIVE PAINT TECHNICIAN) WBC 8.9 3.5 - 10.5 10? 3 /uL 07/17/2022 4:24 AM AUTOMOTIVE PAINT TECHNICIAN [facility] RBC 2.36(L) 4.30 - 5.70 10? 6 /uL 07/17/2022 4:24 AM [facility] Hemoglobin 7.4(L) 12.0 - 17.6 g/dL 07/17/2022 4:24 AM [facility] Hematocrit 21.6(L) 35.2 - 51.7 % 07/17/2022 4:24 AM [facility] MCV 91.5 80.7 - 98.3 fL 07/17/2022 4:24 AM [facility] MCH 31.4 26.7 - 34.0 pg 07/17/2022 4:24 AM [facility] MCHC 34.3 30.8 - 35.9 g/dL 07/17/2022 4:24 AM [facility] RDW-SD 46.2 36.0 - 50.0 fL 07/17/2022 4:24 AM [facility] RDW-CV 14.3 11.2 - 14.8 % 07/17/2022 4:24 AM [facility] Platelet Count 189 150 - 400 10? 3 /uL 07/17/2022 4:24 AM [facility] MPV 12.4 9.4 - 12.9 fL 07/17/2022 4:24 AM [facility] nRBC Absolute 0.00 0 10? 3 /uL 07/17/2022 4:24 AM [facility] nRBC Auto 0.0 0 /100 WBC 07/17/2022 4:24 AM [facility] Neutrophils % 62.8 35.0 - 70.0 % 07/17/2022 4:24 AM [facility] Lymphocytes % 18.9(L) 20.0 - 43.0 % 07/17/2022 4:24 AM [facility] Monocytes % 14.6(H) 5.0 - 13.0 % 07/17/2022 4:24 AM [facility] Eosinophils % 3.1 0.0 - 6.0 % 07/17/2022 4:24 AM [facility] Basophil % 0.1 0.0 - 2.0 % 07/17/2022 4:24 AM [facility] Neutrophils Absolute 5.57 1.60 - 7.00 10? 3 /uL 07/17/2022 4:24 AM [facility] Lymphocyte Absolute 1.67 1.10 - 3.90 10? 3 /uL 07/17/2022 4:24 AM [facility] Monocytes Absolute 1.29(H) 0.26 - 1.07 10? 3 /uL 07/17/2022 4:24 AM [facility] Eosinophils Absolute 0.27 0.00 - 0.47 10? 3 /uL 07/17/2022 4:24 AM [facility] Basophils Absolute 0.01 0.00 - 0.08 10? 3 /uL 07/17/2022 4:24 AM [facility] Immature Granulocytes % 0.5 0.0 - 1.0 % 07/17/2022 4:24 AM [facility] Immature Granulocytes Absolute 0.04 07/17/2022 4:24 AM [facility] Blood BLOOD SPECIMEN / Unknown Venipuncture / Unknown 07/17/2022 4:12 AM AUTOMOTIVE PAINT TECHNICIAN 07/17/2022 4:[address] [facility] Artur Mcgraw MD LAB - HEMATOLOGY OR DERABLES Performing Organization Address [facility]/State/ZIP Co de Phone Number [facility] [address] [place] [phone], [facility] [phone] * (ABNORMAL) BASIC METABOLIC PANEL (CALCIUM TOTAL) (07/16/2022 5:19 AM AUTOMOTIVE PAINT TECHNICIAN) BUN 22 7 - 26 mg/dL 07/16/2022 6:15 AM [facility] Creatinine 1.21(H) 0.71 - 1.16 mg/dL 07/16/2022 6:15 AM [facility] Sodium 140 136 - 145 mmol/L 07/16/2022 6:15 AM [facility] Potassium 3.2(L) 3.5 - 4.5 mmol/L 07/16/2022 6:15 AM [facility] Chloride 108(H) 98 - 107 mmol/L 07/16/2022 6:15 AM [facility] CO2 22 22 - 29 mmol/L 07/16/2022 6:15 AM [facility] Glucose 113 70 - 115 mg/dL 07/16/2022 6:15 AM [facility] Calcium 8.8 8.4 - 10.2 mg/dL 07/16/2022 6:15 AM [facility] Anion Gap 13 8 - 18 07/16/2022 6:15 AM [facility] BUN/Creatinine Ratio 18 7 - 23 07/16/2022 6:15 AM [facility] Osmolality Calculated 294 270 - 300 mOsm/kg 07/16/2022 6:15 AM [facility] eGFR by CKD-EPI 68(L) >=90 mL/min/1.7 3 m2 07/16/2022 6:15 AM [facility] Blood BLOOD SPECIMEN / Unknown Venipuncture / Unknown 07/16/2022 5:19 AM AUTOMOTIVE PAINT TECHNICIAN 07/16/2022 5:38 AM AUTOMOTIVE PAINT TECHNICIAN Tolu Leach MD LAB - CHEMISTRY ORDByron MEDEROS [address] [address], [facility] [phone] * (ABNORMAL) PHOSPHORUS BLOOD (07/16/2022 5:19 AM AUTOMOTIVE PAINT TECHNICIAN) Phosphorus 2.1(L) 2.8 - 5.1 mg/dL 07/16/2022 6:15 AM [facility] Blood BLOOD SPECIMEN / Unknown Venipuncture / Unknown 07/16/2022 5:19 AM AUTOMOTIVE PAINT TECHNICIAN 07/16/2022 5:38 AM AUTOMOTIVE PAINT TECHNICIAN Randy Diaz MD LAB - CHEMISTRY ORDByron MEDEROS [address] [address], [facility] [phone] * MAGNESIUM BLOOD (07/16/2022 5:19 AM AUTOMOTIVE PAINT TECHNICIAN) Magnesium 1.6 1.6 - 2.6 mg/dL 07/16/2022 6:15 AM [facility] Blood BLOOD SPECIMEN / Unknown Venipuncture / Unknown 07/16/2022 5:19 AM AUTOMOTIVE PAINT TECHNICIAN 07/16/2022 5:[address] [facility] Randy Diaz MD LAB - CHEMISTRY [facility]AL MEDEROS [facility] [facility] [address] [place] [address], [facility] [phone] * (ABNORMAL) CBC W AUTO DIFFERENTIAL (07/16/2022 5:[address] [facility]) WBC 9.9 3.5 - 10.5 10? 3 /uL 07/16/2022 7:02 AM [facility] RBC 2.51(L) 4.30 - 5.70 10? 6 /uL 07/16/2022 7:02 AM [facility] Hemoglobin 7.7(L) 12.0 - 17.6 g/dL 07/16/2022 7:02 AM [facility] Hematocrit 22.5(L) 35.2 - 51.7 % 07/16/2022 7:02 AM [facility] MCV 89.6 80.7 - 98.3 fL 07/16/2022 7:02 AM [facility] MCH 30.7 26.7 - 34.0 pg 07/16/2022 7:02 AM [facility] MCHC 34.2 30.8 - 35.9 g/dL 07/16/2022 7:02 AM [facility] RDW-SD 44.6 36.0 - 50.0 fL 07/16/2022 7:02 AM [facility] RDW-CV 14.0 11.2 - 14.8 % 07/16/2022 7:02 AM [facility] Platelet Count 179 150 - 400 10? 3 /uL 07/16/2022 7:02 AM [facility] MPV 12.8 9.4 - 12.9 fL 07/16/2022 7:02 AM [facility] nRBC Absolute 0.00 0 10? 3 /uL 07/16/2022 7:02 AM [facility] nRBC Auto 0.0 0 /100 WBC 07/16/2022 7:02 AM [facility] Neutrophils % 63.2 35.0 - 70.0 % 07/16/2022 7:02 AM [facility] Lymphocytes % 17.5(L) 20.0 - 43.0 % 07/16/2022 7:02 AM [facility] Monocytes % 17.5(H) 5.0 - 13.0 % 07/16/2022 7:02 AM [facility] Eosinophils % 1.0 0.0 - 6.0 % 07/16/2022 7:02 AM [facility] Basophil % 0.2 0.0 - 2.0 % 07/16/2022 7:02 AM [facility] Neutrophils Absolute 6.23 1.60 - 7.00 10? 3 /uL 07/16/2022 7:02 AM [facility] Lymphocyte Absolute 1.73 1.10 - 3.90 10? 3 /uL 07/16/2022 7:02 AM [facility] Monocytes Absolute 1.73(H) 0.26 - 1.07 10? 3 /uL 07/16/2022 7:02 AM [facility] Eosinophils Absolute 0.10 0.00 - 0.47 10? 3 /uL 07/16/2022 7:02 AM [facility] Basophils Absolute 0.02 0.00 - 0.08 10? 3 /uL 07/16/2022 7:02 AM [facility] Immature Granulocytes % 0.6 0.0 - 1.0 % 07/16/2022 7:02 AM [facility] Immature Granulocytes Absolute 0.06 07/16/2022 7:02 AM [facility] Blood BLOOD SPECIMEN / Unknown Venipuncture / Unknown 07/16/2022 5:19 AM AUTOMOTIVE PAINT TECHNICIAN 07/16/2022 5:38 AM AUTOMOTIVE PAINT TECHNICIAN Artur Mcgraw MD LAB - HEMATOLOGY OR DERABLES [facility] [address] [place] [address], [facility] [phone] * XR CHEST 1VW PORTABLE (07/16/2022 1:38 AM AUTOMOTIVE PAINT TECHNICIAN) Anatomical Region Laterality Modality Chest Radiographic Cynthia ging 07/16/2022 9:23 AM AUTOMOTIVE PAINT TECHNICIAN Narrative 07/17/2022 11:23 AM AUTOMOTIVE PAINT TECHNICIAN PROCEDURE: ??XR CHEST 1VW PORTABLE, DATE/TIME OF EXAM: ??07/16/2022 1:38 AM, LOCATION ??[facility] INDICATION: T17.908D: Aspiration into airway, subsequent encounter ADDITIONAL CLINICAL INFORMATION: Ordering Provider Reason For Exam: ??worsening breath sound, mild fever COMPARISON: Chest radiograph on 07/07/2022. FINDINGS/IMPRESSION: Tracheostomy tube terminates in the mid thoracic trachea. Bilateral lower lobe hazy airspace opacities. Small right pleural fluid is present. No pneumothorax is visible. The cardiomediastinal silhouette is normal. The visible bony thorax is intact. > Dictated by Arthur Hawk (Mill Attendant) John Thomason MD have personally reviewed and interpreted this examination/study. > Interpreting Provider: John Graham MD on 07/17/2022 11:23 AM Procedure Note John Graham MD - 07/17/2022 PROCEDURE: XR CHEST 1VW PORTABLE, DATE/TIME OF EXAM: 07/16/2022 1:38AM, LOCATION [facility] INDICATION: T17.908D: Aspiration into airway, subsequent encounter ADDITIONAL CLINICAL INFORMATION: Ordering Provider Reason For Exam: worsening breath sound, mild fever COMPARISON: Chest radiograph on 07/07/2022. FINDINGS/IMPRESSION: Tracheostomy tube terminates in the mid thoracic trachea. Bilateral lower lobe hazy airspace opacities. Small right pleural fluidis present. No pneumothorax is visible. The cardiomediastinal silhouette is normal. The visible bony thorax is intact. > Dictated by Arthur Hawk (Mill Attendant) John Thomason MD have personally reviewed and interpreted this examination/study. > Interpreting Provider: John Graham MD on 07/17/2022 11:23 AM Artemio Abarca MD DIAGNOSTIC IMAGING O RDERABLES * PATHOLOGY TISSUE (07/15/2022 9:52 AM AUTOMOTIVE PAINT TECHNICIAN) Case Report Surgical Pathology Report ? Case: [id number] ? Authorizing Provider: ??Alden Hurtado MD ?Collected: ? 07/15/2022 09:52 AM ? Ordering Location: ? [facility] ICU ? Received: ?07/15/2022 12:19 PM ? Pathologist: ? Loretta Hernandez MD ? Specimen: ?Oropharynx, HYPOPHARYNGEAL DIVERTICULUM ? 07/19/2022 11:20 AM [facility] Final Diagnosis Oropharynx, hypopharyngeal diverticulum, diverticulectomy (A): - Zenker's diverticulum 07/19/2022 11:20 AM [facility] Microscopic Description and Comment Microscopic examination substantiates the final diagnosis. Sections show squamous mucosa without associated muscular wall, compatible with diverticulum. 07/19/2022 11:20 AM [facility] Clinical History The patient is a 62-year-old man with history of seizure disorder and Zenker's diverticulum. Operative procedure-transcervic al Zenker's diverticulectomy with Cricopharyngeal myotomy. 07/19/2022 11:20 AM [facility] Gross Description The requisition and specimen are labeled with the patient's name,Mojgan Tabor. Received in formalin, specimen A is a gerard-pink soft tissue with 1 and stapled. Opened to show diverticulum. Day Care Attendant sections submitted in A1. 07/19/2022 11:20 AM [facility] Disclaimer The performance characteristics of all immunohistochemical and indirect immunofluorescence stains (if any) cited in this report were determined by the Histopathology Laboratory of [facility]. Some of these tests were developed [...] and interpreted by the attending (teaching) pathologist. 07/19/2022 11:20 AM [facility] Embedded Images 07/19/2022 11:20 AM [facility] Biopsy, Excision (Oropharynx) 07/15/2022 9:52 AM AUTOMOTIVE PAINT TECHNICIAN 07/15/2022 12:19 PM AUTOMOTIVE PAINT TECHNICIAN Comment:Pre-op diagnosis: DYSPHAGIA OROPHARYNGEAL PHASE Alden Hurtado MD LAB - PATHOLOGY/CYTO LOGY ORDERABLES Performing Organization Address City/[facility]/ZIP Co de Phone Number [facility] [address] [facility]. [address] [phone] * TYPE + SCREEN PANEL (07/15/2022 7:05 AM AUTOMOTIVE PAINT TECHNICIAN) Antibody Screen NEG 3 8:16 AM [facility] ABO Rh O POS 07/15/2022 8:16 AM [facility] Blood Bank BLOOD SPECIMEN / Unknown Venipuncture / Unknown 07/15/2022 7:05 AM AUTOMOTIVE PAINT TECHNICIAN 07/15/2022 7:15 AM AUTOMOTIVE PAINT TECHNICIAN Artemio Abarca MD LAB - BLOOD BANK ORD ERABLES Performing Organization Address [facility]/ZIP Co de Phone Number [facility] [address] [place] [address], [facility] [phone] * (ABNORMAL) BASIC METABOLIC PANEL (CALCIUM TOTAL) (07/15/2022 4:[address] [facility]) BUN 26 7 - 26 mg/dL 07/15/2022 4:46 AM [facility] Creatinine 1.13 0.71 - 1.16 mg/dL 07/15/2022 4:46 AM [facility] Sodium 143 136 - 145 mmol/L 07/15/2022 4:46 AM [facility] Potassium 3.6 3.5 - 4.5 mmol/L 07/15/2022 4:46 AM [facility] Chloride 107 98 - 107 mmol/L 07/15/2022 4:46 AM [facility] CO2 26 22 - 29 mmol/L 07/15/2022 4:46 AM [facility] Glucose 89 70 - 115 mg/dL 07/15/2022 4:46 AM [facility] Calcium 9.6 8.4 - 10.2 mg/dL 07/15/2022 4:46 AM [facility] Anion Gap 14 8 - 18 07/15/2022 4:46 AM [facility] BUN/Creatinine Ratio 23 7 - 23 07/15/2022 4:46 AM [facility] Osmolality Calculated 300 270 - 300 mOsm/kg 07/15/2022 4:46 AM [facility] eGFR by CKD-EPI 74(L) >=90 mL/min/1.7 3 m2 07/15/2022 4:46 AM [facility] Blood BLOOD SPECIMEN / Unknown Venipuncture / Unknown 07/15/2022 4:[address] [facility] 07/15/2022 4:[address] [facility] Tolu Leach MD LAB - CHEMISTRY MARSHAL Diana Organization Address City/State/ZIP Co de Phone Number [facility] [address] [place] [address], [facility] [phone] * PHOSPHORUS BLOOD (07/15/2022 4:[address] [facility]) Phosphorus 4.0 2.8 - 5.1 mg/dL 07/15/2022 4:46 AM [facility] Blood BLOOD SPECIMEN / Unknown Venipuncture / Unknown 07/15/2022 4:01 AM AUTOMOTIVE PAINT TECHNICIAN 07/15/2022 4:09 AM AUTOMOTIVE PAINT TECHNICIAN Randy Diaz MD LAB - CHEMISTRY MARSHAL [facility] [address] [address], [facility] [phone] * MAGNESIUM BLOOD (07/15/2022 4:01 AM AUTOMOTIVE PAINT TECHNICIAN) Magnesium 1.8 1.6 - 2.6 mg/dL 07/15/2022 4:46 AM [facility] Blood BLOOD SPECIMEN / Unknown Venipuncture / Unknown 07/15/2022 4:01 AM AUTOMOTIVE PAINT TECHNICIAN 07/15/2022 4:09 AM AUTOMOTIVE PAINT TECHNICIAN Randy Diaz MD LAB - CHEMISTRY MARSHAL MEDEROS Performing Organization Address City/[facility]/ZIP Co de Phone Number [address] [address], [facility] [phone] * (ABNORMAL) CBC W AUTO DIFFERENTIAL (07/15/2022 4:01 AM AUTOMOTIVE PAINT TECHNICIAN) WBC 6.7 3.5 - 10.5 10? 3 /uL 07/15/2022 4:13 AM [facility] RBC 2.76(L) 4.30 - 5.70 10? 6 /uL 07/15/2022 4:13 AM [facility] Hemoglobin 8.4(L) 12.0 - 17.6 g/dL 07/15/2022 4:13 AM [facility] Hematocrit 25.3(L) 35.2 - 51.7 % 07/15/2022 4:13 AM [facility] MCV 91.7 80.7 - 98.3 fL 07/15/2022 4:13 AM [facility] MCH 30.4 26.7 - 34.0 pg 07/15/2022 4:13 AM [facility] MCHC 33.2 30.8 - 35.9 g/dL 07/15/2022 4:13 AM [facility] RDW-SD 46.1 36.0 - 50.0 fL 07/15/2022 4:13 AM [facility] RDW-CV 14.0 11.2 - 14.8 % 07/15/2022 4:13 AM [facility] Platelet Count 164 150 - 400 10? 3 /uL 07/15/2022 4:13 AM [facility] MPV 12.4 9.4 - 12.9 fL 07/15/2022 4:13 AM [facility] nRBC Absolute 0.00 0 10? 3 /uL 07/15/2022 4:13 AM [facility] nRBC Auto 0.0 0 /100 WBC 07/15/2022 4:13 AM [facility] Neutrophils % 60.3 35.0 - 70.0 % 07/15/2022 4:13 AM [facility] Lymphocytes % 22.1 20.0 - 43.0 % 07/15/2022 4:13 AM [facility] Monocytes % 13.3(H) 5.0 - 13.0 % 07/15/2022 4:13 AM [facility] Eosinophils % 3.6 0.0 - 6.0 % 07/15/2022 4:13 AM [facility] Basophil % 0.3 0.0 - 2.0 % 07/15/2022 4:13 AM [facility] Neutrophils Absolute 4.04 1.60 - 7.00 10? 3 /uL 07/15/2022 4:13 AM [facility] Lymphocyte Absolute 1.48 1.10 - 3.90 10? 3 /uL 07/15/2022 4:13 AM [facility] Monocytes Absolute 0.89 0.26 - 1.07 10? 3 /uL 07/15/2022 4:13 AM [facility] Eosinophils Absolute 0.24 0.00 - 0.47 10? 3 /uL 07/15/2022 4:13 AM [facility] Basophils Absolute 0.02 0.00 - 0.08 10? 3 /uL 07/15/2022 4:13 AM [facility] Immature Granulocytes % 0.4 0.0 - 1.0 % 07/15/2022 4:13 AM [facility] Immature Granulocytes Absolute 0.03 07/15/2022 4:13 AM [facility] Blood BLOOD SPECIMEN / Unknown Venipuncture / Unknown 07/15/2022 4:01 AM AUTOMOTIVE PAINT TECHNICIAN 07/15/2022 4:09 AM AUTOMOTIVE PAINT TECHNICIAN Artur Mcgraw MD LAB - HEMATOLOGY OR DERABLES Performing Organization Address City/[facility] Co de Phone Number [facility] [address] [place] [address], [facility] [phone] * (ABNORMAL) BASIC METABOLIC PANEL (CALCIUM TOTAL) (07/14/2022 4:[address] [facility]) BUN 34(H) 7 - 26 mg/dL 07/14/2022 4:52 AM [facility] Creatinine 1.30(H) 0.71 - 1.16 mg/dL 07/14/2022 4:52 AM [facility] Sodium 139 136 - 145 mmol/L 07/14/2022 4:52 AM [facility] Potassium 3.5 3.5 - 4.5 mmol/L 07/14/2022 4:52 AM [facility] Chloride 104 98 - 107 mmol/L 07/14/2022 4:52 AM [facility] CO2 25 22 - 29 mmol/L 07/14/2022 4:52 AM [facility] Glucose 92 70 - 115 mg/dL 07/14/2022 4:52 AM [facility] Calcium 9.6 8.4 - 10.2 mg/dL 07/14/2022 4:52 AM [facility] Anion Gap 14 8 - 18 07/14/2022 4:52 AM [facility] BUN/Creatinine Ratio 26(H) 7 - 23 07/14/2022 4:52 AM [facility] Osmolality Calculated 295 270 - 300 mOsm/kg 07/14/2022 4:52 AM [facility] eGFR by CKD-EPI 63(L) >=90 mL/min/1.7 3 m2 07/14/2022 4:52 AM [facility] Blood BLOOD SPECIMEN / Unknown Venipuncture / Unknown 07/14/2022 4:11 AM AUTOMOTIVE PAINT TECHNICIAN 07/14/2022 4:25 AM AUTOMOTIVE PAINT TECHNICIAN Tolu Leach MD LAB - CHEMISTRY MARSHAL MEDEROS Performing Organization Address City/[facility]/ZIP Co de Phone Number [address] [address], [place] [phone] * PHOSPHORUS BLOOD (07/14/2022 4:11 AM AUTOMOTIVE PAINT TECHNICIAN) Phosphorus 3.0 2.8 - 5.1 mg/dL 07/14/2022 4:52 AM AUTOMOTIVE PAINT TECHNICIAN [facility] Blood BLOOD SPECIMEN / Unknown Venipuncture / Unknown 07/14/2022 4:11 AM AUTOMOTIVE PAINT TECHNICIAN 07/14/2022 4:25 AM AUTOMOTIVE PAINT TECHNICIAN Randy Diaz MD LAB - CHEMISTRY MARSHAL MEDEROS Performing Organization Address [facility]/ZIP Co de Phone Number [address] [address], [place] [phone] * MAGNESIUM BLOOD (07/14/2022 4:11 AM AUTOMOTIVE PAINT TECHNICIAN) Magnesium 1.8 1.6 - 2.6 mg/dL 07/14/2022 4:52 AM AUTOMOTIVE PAINT TECHNICIAN [facility] Blood BLOOD SPECIMEN / Unknown Venipuncture / Unknown 07/14/2022 4:11 AM AUTOMOTIVE PAINT TECHNICIAN 07/14/2022 4:25 AM AUTOMOTIVE PAINT TECHNICIAN Randy Diaz MD LAB - CHEMISTRY MARSHAL MEDEROS [address] [address], [place] [phone] * (ABNORMAL) CBC W AUTO DIFFERENTIAL (07/14/2022 4:11 AM AUTOMOTIVE PAINT TECHNICIAN) WBC 6.8 3.5 - 10.5 10? 3 /uL 07/14/2022 4:47 AM AUTOMOTIVE PAINT TECHNICIAN [facility] RBC 2.72(L) 4.30 - 5.70 10? 6 /uL 07/14/2022 4:47 AM [facility] Hemoglobin 8.2(L) 12.0 - 17.6 g/dL 07/14/2022 4:47 AM [facility] Hematocrit 24.8(L) 35.2 - 51.7 % 07/14/2022 4:47 AM [facility] MCV 91.2 80.7 - 98.3 fL 07/14/2022 4:47 AM [facility] MCH 30.1 26.7 - 34.0 pg 07/14/2022 4:47 AM [facility] MCHC 33.1 30.8 - 35.9 g/dL 07/14/2022 4:47 AM [facility] RDW-SD 45.3 36.0 - 50.0 fL 07/14/2022 4:47 AM [facility] RDW-CV 13.9 11.2 - 14.8 % 07/14/2022 4:47 AM [facility] Platelet Count 146(L) 150 - 400 10? 3 /uL 07/14/2022 4:47 AM [facility] MPV 12.9 9.4 - 12.9 fL 07/14/2022 4:47 AM [facility] nRBC Absolute 0.00 0 10? 3 /uL 07/14/2022 4:47 AM [facility] nRBC Auto 0.0 0 /100 WBC 07/14/2022 4:47 AM [facility] Neutrophils % 56.4 35.0 - 70.0 % 07/14/2022 4:47 AM [facility] Lymphocytes % 27.1 20.0 - 43.0 % 07/14/2022 4:47 AM [facility] Monocytes % 12.2 5.0 - 13.0 % 07/14/2022 4:47 AM [facility] Eosinophils % 3.4 0.0 - 6.0 % 07/14/2022 4:47 AM [facility] Basophil % 0.3 0.0 - 2.0 % 07/14/2022 4:47 AM [facility] Neutrophils Absolute 3.84 1.60 - 7.00 10? 3 /uL 07/14/2022 4:47 AM [facility] Lymphocyte Absolute 1.84 1.10 - 3.90 10? 3 /uL 07/14/2022 4:47 AM [facility] Monocytes Absolute 0.83 0.26 - 1.07 10? 3 /uL 07/14/2022 4:47 AM [facility] Eosinophils Absolute 0.23 0.00 - 0.47 10? 3 /uL 07/14/2022 4:47 AM [facility] Basophils Absolute 0.02 0.00 - 0.08 10? 3 /uL 07/14/2022 4:47 AM [facility] Immature Granulocytes % 0.6 0.0 - 1.0 % 07/14/2022 4:47 AM [facility] Immature Granulocytes Absolute 0.04 07/14/2022 4:47 AM [facility] Blood BLOOD SPECIMEN / Unknown Venipuncture / Unknown 07/14/2022 4:11 AM AUTOMOTIVE PAINT TECHNICIAN 07/14/2022 4:[address] [facility] Artur Mcgraw MD LAB - HEMATOLOGY OR DERABLES Performing Organization Address [facility]/State/ZIP Co de Phone Number [facility] [address] [place] [address], [facility] [phone] * (ABNORMAL) BASIC METABOLIC PANEL (CALCIUM TOTAL) (07/13/2022 4:[address] [facility]) BUN 36(H) 7 - 26 mg/dL 07/13/2022 5:16 AM [facility] Creatinine 1.36(H) 0.71 - 1.16 mg/dL 07/13/2022 5:16 AM [facility] Sodium 143 136 - 145 mmol/L 07/13/2022 5:16 AM [facility] Potassium 3.8 3.5 - 4.5 mmol/L 07/13/2022 5:16 AM [facility] Chloride 108(H) 98 - 107 mmol/L 07/13/2022 5:16 AM [facility] CO2 26 22 - 29 mmol/L 07/13/2022 5:16 AM [facility] Glucose 101 70 - 115 mg/dL 07/13/2022 5:16 AM [facility] Calcium 9.4 8.4 - 10.2 mg/dL 07/13/2022 5:16 AM [facility] Anion Gap 13 8 - 18 07/13/2022 5:16 AM [facility] BUN/Creatinine Ratio 26(H) 7 - 23 07/13/2022 5:16 AM [facility] Osmolality Calculated 304(H) 270 - 300 mOsm/kg 07/13/2022 5:16 AM [facility] eGFR by CKD-EPI 59(L) >=90 mL/min/1.7 3 m2 07/13/2022 5:16 AM [facility] Blood BLOOD SPECIMEN / Unknown Venipuncture / Unknown 07/13/2022 4:13 AM AUTOMOTIVE PAINT TECHNICIAN 07/13/2022 4:50 AM AUTOMOTIVE PAINT TECHNICIAN Tolu Leach MD LAB - CHEMISTRY MARSHAL MEDEROS [address] [address], [facility] [phone] * (ABNORMAL) PHOSPHORUS BLOOD (07/13/2022 4:13 AM AUTOMOTIVE PAINT TECHNICIAN) Phosphorus 2.7(L) 2.8 - 5.1 mg/dL 07/13/2022 5:16 AM [facility] Blood BLOOD SPECIMEN / Unknown Venipuncture / Unknown 07/13/2022 4:13 AM AUTOMOTIVE PAINT TECHNICIAN 07/13/2022 4:50 AM AUTOMOTIVE PAINT TECHNICIAN Randy Diaz MD LAB - CHEMISTRY MARSHAL MEDEROS [address] [address], [facility] [phone] * MAGNESIUM BLOOD (07/13/2022 4:13 AM AUTOMOTIVE PAINT TECHNICIAN) Magnesium 1.8 1.6 - 2.6 mg/dL 07/13/2022 5:16 AM [facility] Blood BLOOD SPECIMEN / Unknown Venipuncture / Unknown 07/13/2022 4:13 AM AUTOMOTIVE PAINT TECHNICIAN 07/13/2022 4:50 AM AUTOMOTIVE PAINT TECHNICIAN Randy Diaz MD LAB - CHEMISTRY [facility] [address] [place] [address], [facility] [phone] * (ABNORMAL) CBC W AUTO DIFFERENTIAL (07/13/2022 4:13 AM AUTOMOTIVE PAINT TECHNICIAN) WBC 8.6 3.5 - 10.5 10? 3 /uL 07/13/2022 5:12 AM [facility] RBC 2.80(L) 4.30 - 5.70 10? 6 /uL 07/13/2022 5:12 AM [facility] Hemoglobin 8.9(L) 12.0 - 17.6 g/dL 07/13/2022 5:12 AM [facility] Hematocrit 25.9(L) 35.2 - 51.7 % 07/13/2022 5:12 AM [facility] MCV 92.5 80.7 - 98.3 fL 07/13/2022 5:12 AM [facility] MCH 31.8 26.7 - 34.0 pg 07/13/2022 5:12 AM [facility] MCHC 34.4 30.8 - 35.9 g/dL 07/13/2022 5:12 AM [facility] RDW-SD 46.3 36.0 - 50.0 fL 07/13/2022 5:12 AM [facility] RDW-CV 13.6 11.2 - 14.8 % 07/13/2022 5:12 AM [facility] Platelet Count 81(L) 150 - 400 10? 3 /uL 07/13/2022 5:12 AM [facility] MPV 12.2 9.4 - 12.9 fL 07/13/2022 5:12 AM [facility] nRBC Absolute 0.00 0 10? 3 /uL 07/13/2022 5:12 AM [facility] nRBC Auto 0.0 0 /100 WBC 07/13/2022 5:12 AM [facility] Neutrophils % 63.7 35.0 - 70.0 % 07/13/2022 5:12 AM [facility] Lymphocytes % 20.8 20.0 - 43.0 % 07/13/2022 5:12 AM [facility] Monocytes % 12.7 5.0 - 13.0 % 07/13/2022 5:12 AM [facility] Eosinophils % 1.9 0.0 - 6.0 % 07/13/2022 5:12 AM [facility] Basophil % 0.2 0.0 - 2.0 % 07/13/2022 5:12 AM [facility] Neutrophils Absolute 5.48 1.60 - 7.00 10? 3 /uL 07/13/2022 5:12 AM [facility] Lymphocyte Absolute 1.79 1.10 - 3.90 10? 3 /uL 07/13/2022 5:12 AM [facility] Monocytes Absolute 1.09(H) 0.26 - 1.07 10? 3 /uL 07/13/2022 5:12 AM [facility] Eosinophils Absolute 0.16 0.00 - 0.47 10? 3 /uL 07/13/2022 5:12 AM [facility] Basophils Absolute 0.02 0.00 - 0.08 10? 3 /uL 07/13/2022 5:12 AM [facility] Immature Granulocytes % 0.7 0.0 - 1.0 % 07/13/2022 5:12 AM [facility] Immature Granulocytes Absolute 0.06 07/13/2022 5:12 AM [facility] Blood BLOOD SPECIMEN / Unknown Venipuncture / Unknown 07/13/2022 4:13 AM AUTOMOTIVE PAINT TECHNICIAN 07/13/2022 4:[address] [facility] Artur Mcgraw MD LAB - HEMATOLOGY OR DERABLES [address] [address], [facility] [phone] * (ABNORMAL) BASIC METABOLIC PANEL (CALCIUM TOTAL) (07/12/2022 4:50 AM AUTOMOTIVE PAINT TECHNICIAN) BUN 42(H) 7 - 26 mg/dL 07/12/2022 7:22 AM [facility] Creatinine 1.58(H) 0.71 - 1.16 mg/dL 07/12/2022 7:22 AM [facility] Sodium 143 136 - 145 mmol/L 07/12/2022 7:22 AM [facility] Potassium 4.5 3.5 - 4.5 mmol/L 07/12/2022 7:22 AM [facility] Chloride 109(H) 98 - 107 mmol/L 07/12/2022 7:22 AM [facility] CO2 25 22 - 29 mmol/L 07/12/2022 7:22 AM [facility] Glucose 112 70 - 115 mg/dL 07/12/2022 7:22 AM [facility] Calcium 9.0 8.4 - 10.2 mg/dL 07/12/2022 7:22 AM [facility] Anion Gap 14 8 - 18 07/12/2022 7:22 AM [facility] BUN/Creatinine Ratio 27(H) 7 - 23 07/12/2022 7:22 AM [facility] Osmolality Calculated 307(H) 270 - 300 mOsm/kg 07/12/2022 7:22 AM [facility] eGFR by CKD-EPI 49(L) >=90 mL/min/1.7 3 m2 07/12/2022 7:22 AM [facility] Blood BLOOD SPECIMEN / Unknown Venipuncture / Unknown 07/12/2022 4:50 AM AUTOMOTIVE PAINT TECHNICIAN 07/12/2022 6:18 AM AUTOMOTIVE PAINT TECHNICIAN Tolu Leach MD LAB - CHEMISTRY [facility] Organization Address City/State/[facility] Co de Phone Number [place] [facility] [address] [place] [address], [facility] [phone] * PHOSPHORUS BLOOD (07/12/2022 4:50 AM AUTOMOTIVE PAINT TECHNICIAN) Phosphorus 3.4 2.8 - 5.1 mg/dL 07/12/2022 7:22 AM [facility] Blood BLOOD SPECIMEN / Unknown Venipuncture / Unknown 07/12/2022 4:50 AM AUTOMOTIVE PAINT TECHNICIAN 07/12/2022 6:18 AM AUTOMOTIVE PAINT TECHNICIAN Randy Diaz MD LAB - CHEMISTRY MARSHAL MEDEROS [address] [address], [facility] [phone] * MAGNESIUM BLOOD (07/12/2022 4:50 AM AUTOMOTIVE PAINT TECHNICIAN) Magnesium 1.9 1.6 - 2.6 mg/dL 07/12/2022 7:22 AM [facility] Blood BLOOD SPECIMEN / Unknown Venipuncture / Unknown 07/12/2022 4:50 AM AUTOMOTIVE PAINT TECHNICIAN 07/12/2022 6:18 AM AUTOMOTIVE PAINT TECHNICIAN Randy Diaz MD LAB - CHEMISTRY MARSHAL MEDEROS Performing Organization Address [facility]/ZIP Co de Phone Number [address] [address], [facility] [phone] * (ABNORMAL) CBC W AUTO DIFFERENTIAL (07/12/2022 4:50 AM AUTOMOTIVE PAINT TECHNICIAN) WBC 6.6 3.5 - 10.5 10? 3 /uL 07/12/2022 6:26 AM [facility] RBC 2.99(L) 4.30 - 5.70 10? 6 /uL 07/12/2022 6:26 AM [facility] Hemoglobin 9.3(L) 12.0 - 17.6 g/dL 07/12/2022 6:26 AM [facility] Hematocrit 28.0(L) 35.2 - 51.7 % 07/12/2022 6:26 AM [facility] MCV 93.6 80.7 - 98.3 fL 07/12/2022 6:26 AM [facility] MCH 31.1 26.7 - 34.0 pg 07/12/2022 6:26 AM [facility] MCHC 33.2 30.8 - 35.9 g/dL 07/12/2022 6:26 AM [facility] RDW-SD 46.4 36.0 - 50.0 fL 07/12/2022 6:26 AM [facility] RDW-CV 13.7 11.2 - 14.8 % 07/12/2022 6:26 AM [facility] Platelet Count 152 150 - 400 10? 3 /uL 07/12/2022 6:26 AM [facility] MPV 12.8 9.4 - 12.9 fL 07/12/2022 6:26 AM [facility] nRBC Absolute 0.00 0 10? 3 /uL 07/12/2022 6:26 AM [facility] nRBC Auto 0.0 0 /100 WBC 07/12/2022 6:26 AM [facility] Neutrophils % 59.3 35.0 - 70.0 % 07/12/2022 6:26 AM [facility] Lymphocytes % 26.7 20.0 - 43.0 % 07/12/2022 6:26 AM [facility] Monocytes % 9.9 5.0 - 13.0 % 07/12/2022 6:26 AM [facility] Eosinophils % 3.0 0.0 - 6.0 % 07/12/2022 6:26 AM [facility] Basophil % 0.3 0.0 - 2.0 % 07/12/2022 6:26 AM [facility] Neutrophils Absolute 3.89 1.60 - 7.00 10? 3 /uL 07/12/2022 6:26 AM [facility] Lymphocyte Absolute 1.75 1.10 - 3.90 10? 3 /uL 07/12/2022 6:26 AM [facility] Monocytes Absolute 0.65 0.26 - 1.07 10? 3 /uL 07/12/2022 6:26 AM [facility] Eosinophils Absolute 0.20 0.00 - 0.47 10? 3 /uL 07/12/2022 6:26 AM [facility] Basophils Absolute 0.02 0.00 - 0.08 10? 3 /uL 07/12/2022 6:26 AM [facility] Immature Granulocytes % 0.8 0.0 - 1.0 % 07/12/2022 6:26 AM [facility] Immature Granulocytes Absolute 0.05 07/12/2022 6:26 AM [facility] Blood BLOOD SPECIMEN / Unknown Venipuncture / Unknown 07/12/2022 4:50 AM AUTOMOTIVE PAINT TECHNICIAN 07/12/2022 6:18 AM AUTOMOTIVE PAINT TECHNICIAN Artur Mcgraw MD LAB - HEMATOLOGY OR DERABLES [address] [address], [facility] [phone] * CK BLOOD (07/11/2022 12:40 AM AUTOMOTIVE PAINT TECHNICIAN) CK Total 49 30 - 200 U/L 07/11/2022 4:37 PM [facility] Blood BLOOD SPECIMEN / Unknown 07/11/2022 12:40 AM AUTOMOTIVE PAINT TECHNICIAN 07/11/2022 4:24 PM AUTOMOTIVE PAINT TECHNICIAN Tolu Leach MD LAB - CHEMISTRY ORDByron MEDEROS Performing Organization Address [facility]/ZIP Co de Phone Number [address] [address], [facility] [phone] * (ABNORMAL) BASIC METABOLIC PANEL (CALCIUM TOTAL) (07/11/2022 12:40 AM AUTOMOTIVE PAINT TECHNICIAN) BUN 46(H) 7 - 26 mg/dL 07/11/2022 1:18 AM [facility] Creatinine 1.81(H) 0.71 - 1.16 mg/dL 07/11/2022 1:18 AM [facility] Sodium 142 136 - 145 mmol/L 07/11/2022 1:18 AM [facility] Potassium 5.3(H) 3.5 - 4.5 mmol/L 07/11/2022 1:18 AM [facility] Chloride 109(H) 98 - 107 mmol/L 07/11/2022 1:18 AM [facility] CO2 26 22 - 29 mmol/L 07/11/2022 1:18 AM [facility] Glucose 101 70 - 115 mg/dL 07/11/2022 1:18 AM [facility] Calcium 9.8 8.4 - 10.2 mg/dL 07/11/2022 1:18 AM [facility] Anion Gap 12 8 - 18 07/11/2022 1:18 AM [facility] BUN/Creatinine Ratio 25(H) 7 - 23 07/11/2022 1:18 AM [facility] Osmolality Calculated 306(H) 270 - 300 mOsm/kg 07/11/2022 1:18 AM [facility] eGFR by CKD-EPI 42(L) >=90 mL/min/1.7 3 m2 07/11/2022 1:18 AM [facility] Blood BLOOD SPECIMEN / Unknown Venipuncture / Unknown 07/11/2022 12:40 AM AUTOMOTIVE PAINT TECHNICIAN 07/11/2022 12:53 AM AUTOMOTIVE PAINT TECHNICIAN Tolu Leach MD LAB - CHEMISTRY MARSHAL MEDEROS [address] [address], [facility] [phone] * PHOSPHORUS BLOOD (07/11/2022 12:40 AM AUTOMOTIVE PAINT TECHNICIAN) Phosphorus 3.9 2.8 - 5.1 mg/dL 07/11/2022 1:18 AM AUTOMOTIVE PAINT TECHNICIAN [facility] Blood BLOOD SPECIMEN / Unknown Venipuncture / Unknown 07/11/2022 12:40 AM AUTOMOTIVE PAINT TECHNICIAN 07/11/2022 12:53 AM AUTOMOTIVE PAINT TECHNICIAN Randy Diaz MD LAB - CHEMISTRY MARSHAL MEDEROS Performing Organization Address City/[facility]/ZIP Co de Phone Number [address] [address], [place] [phone] * MAGNESIUM BLOOD (07/11/2022 12:40 AM AUTOMOTIVE PAINT TECHNICIAN) Magnesium 1.9 1.6 - 2.6 mg/dL 07/11/2022 1:18 AM AUTOMOTIVE PAINT TECHNICIAN [facility] Blood BLOOD SPECIMEN / Unknown Venipuncture / Unknown 07/11/2022 12:40 AM AUTOMOTIVE PAINT TECHNICIAN 07/11/2022 12:53 AM AUTOMOTIVE PAINT TECHNICIAN Randy Diaz MD LAB - CHEMISTRY MARSHAL MEDEROS [address] [place] [address], [facility] [phone] * (ABNORMAL) CBC W AUTO DIFFERENTIAL (07/11/2022 12:[address] [facility]) WBC 5.0 3.5 - 10.5 10? 3 /uL 07/11/2022 1:32 AM [facility] RBC 3.31(L) 4.30 - 5.70 10? 6 /uL 07/11/2022 1:32 AM [facility] Hemoglobin 10.1(L) 12.0 - 17.6 g/dL 07/11/2022 1:32 AM [facility] Hematocrit 31.0(L) 35.2 - 51.7 % 07/11/2022 1:32 AM [facility] MCV 93.7 80.7 - 98.3 fL 07/11/2022 1:32 AM [facility] MCH 30.5 26.7 - 34.0 pg 07/11/2022 1:32 AM [facility] MCHC 32.6 30.8 - 35.9 g/dL 07/11/2022 1:32 AM [facility] RDW-SD 46.2 36.0 - 50.0 fL 07/11/2022 1:32 AM [facility] RDW-CV 13.5 11.2 - 14.8 % 07/11/2022 1:32 AM [facility] Platelet Count 153 150 - 400 10? 3 /uL 07/11/2022 1:32 AM [facility] MPV 12.3 9.4 - 12.9 fL 07/11/2022 1:32 AM [facility] nRBC Absolute 0.00 0 10? 3 /uL 07/11/2022 1:32 AM [facility] nRBC Auto 0.0 0 /100 WBC 07/11/2022 1:32 AM [facility] Neutrophils % 46.5 35.0 - 70.0 % 07/11/2022 1:32 AM [facility] Lymphocytes % 36.5 20.0 - 43.0 % 07/11/2022 1:32 AM [facility] Monocytes % 11.2 5.0 - 13.0 % 07/11/2022 1:32 AM [facility] Eosinophils % 5.0 0.0 - 6.0 % 07/11/2022 1:32 AM [facility] Basophil % 0.4 0.0 - 2.0 % 07/11/2022 1:32 AM [facility] Neutrophils Absolute 2.34 1.60 - 7.00 10? 3 /uL 07/11/2022 1:32 AM [facility] Lymphocyte Absolute 1.83 1.10 - 3.90 10? 3 /uL 07/11/2022 1:32 AM [facility] Monocytes Absolute 0.56 0.26 - 1.07 10? 3 /uL 07/11/2022 1:32 AM [facility] Eosinophils Absolute 0.25 0.00 - 0.47 10? 3 /uL 07/11/2022 1:32 AM [facility] Basophils Absolute 0.02 0.00 - 0.08 10? 3 /uL 07/11/2022 1:32 AM [facility] Immature Granulocytes % 0.4 0.0 - 1.0 % 07/11/2022 1:32 AM [facility] Immature Granulocytes Absolute 0.02 07/11/2022 1:32 AM [facility] Blood BLOOD SPECIMEN / Unknown Venipuncture / Unknown 07/11/2022 12:40 AM AUTOMOTIVE PAINT TECHNICIAN 07/11/2022 12:[address] [facility] Artur Mcgraw MD LAB - HEMATOLOGY OR DERABLES Performing Organization Address [facility] Co de Phone Number [address] [address] [phone] * (ABNORMAL) BASIC METABOLIC PANEL (CALCIUM TOTAL) (07/10/2022 12:[address] [facility]) BUN 44(H) 7 - 26 mg/dL 07/10/2022 12:52 AM [facility] Creatinine 1.96(H) 0.71 - 1.16 mg/dL 07/10/2022 12:52 AM [facility] Sodium 141 136 - 145 mmol/L 07/10/2022 12:52 AM [facility] Potassium 5.1(H) 3.5 - 4.5 mmol/L 07/10/2022 12:52 AM [facility] Chloride 111(H) 98 - 107 mmol/L 07/10/2022 12:52 AM [facility] CO2 23 22 - 29 mmol/L 07/10/2022 12:52 AM [facility] Glucose 101 70 - 115 mg/dL 07/10/2022 12:52 AM [facility] Calcium 9.1 8.4 - 10.2 mg/dL 07/10/2022 12:52 AM [facility] Anion Gap 12 8 - 18 07/10/2022 12:52 AM [facility] BUN/Creatinine Ratio 22 7 - 23 07/10/2022 12:52 AM [facility] Osmolality Calculated 303(H) 270 - 300 mOsm/kg 07/10/2022 12:52 AM [facility] eGFR by CKD-EPI 38(L) >=90 mL/min/1.7 3 m2 07/10/2022 12:52 AM [facility] Blood BLOOD SPECIMEN / Unknown Venipuncture / Unknown 07/10/2022 12:05 AM AUTOMOTIVE PAINT TECHNICIAN 07/10/2022 12:24 AM AUTOMOTIVE PAINT TECHNICIAN Tolu Leach MD LAB - CHEMISTRY ORDByron MEDEROS [address] [address], [place] [phone] * PHOSPHORUS BLOOD (07/10/2022 12:05 AM AUTOMOTIVE PAINT TECHNICIAN) Phosphorus 3.6 2.8 - 5.1 mg/dL 07/10/2022 12:52 AM [facility] Blood BLOOD SPECIMEN / Unknown Venipuncture / Unknown 07/10/2022 12:05 AM AUTOMOTIVE PAINT TECHNICIAN 07/10/2022 12:24 AM AUTOMOTIVE PAINT TECHNICIAN Randy Diaz MD LAB - CHEMISTRY MARSHAL MEDEROS [address] [address], [place] [phone] * MAGNESIUM BLOOD (07/10/2022 12:[address] [facility]) Magnesium 1.8 1.6 - 2.6 mg/dL 07/10/2022 12:52 AM [facility] Blood BLOOD SPECIMEN / Unknown Venipuncture / Unknown 07/10/2022 12:05 AM AUTOMOTIVE PAINT TECHNICIAN 07/10/2022 12:24 AM AUTOMOTIVE PAINT TECHNICIAN Randy Diaz MD LAB - CHEMISTRY ORDE GATITO [facility] [address] [place] [address], [facility] [phone] * (ABNORMAL) CBC W AUTO DIFFERENTIAL (07/10/2022 12:[address] [facility]) WBC 5.2 3.5 - 10.5 10? 3 /uL 07/10/2022 12:33 AM [facility] RBC 2.80(L) 4.30 - 5.70 10? 6 /uL 07/10/2022 12:33 AM [facility] Hemoglobin 8.6(L) 12.0 - 17.6 g/dL 07/10/2022 12:33 AM [facility] Hematocrit 26.1(L) 35.2 - 51.7 % 07/10/2022 12:33 AM [facility] MCV 93.2 80.7 - 98.3 fL 07/10/2022 12:33 AM [facility] MCH 30.7 26.7 - 34.0 pg 07/10/2022 12:33 AM [facility] MCHC 33.0 30.8 - 35.9 g/dL 07/10/2022 12:33 AM [facility] RDW-SD 46.1 36.0 - 50.0 fL 07/10/2022 12:33 AM [facility] RDW-CV 13.5 11.2 - 14.8 % 07/10/2022 12:33 AM [facility] Platelet Count 134(L) 150 - 400 10? 3 /uL 07/10/2022 12:33 AM [facility] MPV 12.3 9.4 - 12.9 fL 07/10/2022 12:33 AM [facility] nRBC Absolute 0.00 0 10? 3 /uL 07/10/2022 12:33 AM [facility] nRBC Auto 0.0 0 /100 WBC 07/10/2022 12:33 AM [facility] Neutrophils % 47.6 35.0 - 70.0 % 07/10/2022 12:33 AM [facility] Lymphocytes % 36.1 20.0 - 43.0 % 07/10/2022 12:33 AM [facility] Monocytes % 10.5 5.0 - 13.0 % 07/10/2022 12:33 AM [facility] Eosinophils % 5.0 0.0 - 6.0 % 07/10/2022 12:33 AM [facility] Basophil % 0.2 0.0 - 2.0 % 07/10/2022 12:33 AM [facility] Neutrophils Absolute 2.45 1.60 - 7.00 10? 3 /uL 07/10/2022 12:33 AM [facility] Lymphocyte Absolute 1.86 1.10 - 3.90 10? 3 /uL 07/10/2022 12:33 AM [facility] Monocytes Absolute 0.54 0.26 - 1.07 10? 3 /uL 07/10/2022 12:33 AM [facility] Eosinophils Absolute 0.26 0.00 - 0.47 10? 3 /uL 07/10/2022 12:33 AM [facility] Basophils Absolute 0.01 0.00 - 0.08 10? 3 /uL 07/10/2022 12:33 AM [facility] Immature Granulocytes % 0.6 0.0 - 1.0 % 07/10/2022 12:33 AM [facility] Immature Granulocytes Absolute 0.03 07/10/2022 12:33 AM [facility] Blood BLOOD SPECIMEN / Unknown Venipuncture / Unknown 07/10/2022 12:05 AM AUTOMOTIVE PAINT TECHNICIAN 07/10/2022 12:24 AM AUTOMOTIVE PAINT TECHNICIAN Artur Mcgraw MD LAB - HEMATOLOGY OR DERABLES [facility] [address] [place] [address], [facility] [phone] * (ABNORMAL) BASIC METABOLIC PANEL (CALCIUM TOTAL) (07/09/2022 3:[address] [facility]) BUN 39(H) 7 - 26 mg/dL 07/09/2022 3:48 AM [facility] Creatinine 2.18(H) 0.71 - 1.16 mg/dL 07/09/2022 3:48 AM [facility] Sodium 143 136 - 145 mmol/L 07/09/2022 3:48 AM [facility] Potassium 4.7(H) 3.5 - 4.5 mmol/L 07/09/2022 3:48 AM [facility] Chloride 114(H) 98 - 107 mmol/L 07/09/2022 3:48 AM [facility] CO2 22 22 - 29 mmol/L 07/09/2022 3:48 AM [facility] Glucose 109 70 - 115 mg/dL 07/09/2022 3:48 AM [facility] Calcium 9.0 8.4 - 10.2 mg/dL 07/09/2022 3:48 AM [facility] Anion Gap 12 8 - 18 07/09/2022 3:48 AM [facility] BUN/Creatinine Ratio 18 7 - 23 07/09/2022 3:48 AM [facility] Osmolality Calculated 306(H) 270 - 300 mOsm/kg 07/09/2022 3:48 AM [facility] eGFR by CKD-EPI 34(L) >=90 mL/min/1.7 3 m2 07/09/2022 3:48 AM [facility] Blood BLOOD SPECIMEN / Unknown Venipuncture / Unknown 07/09/2022 3:03 AM AUTOMOTIVE PAINT TECHNICIAN 07/09/2022 3:[address] [facility] Ramya Witt MD LAB - CHEMISTRY ORDERABLES [facility] [address] [place] [address], [facility] [phone] * PHOSPHORUS BLOOD (07/09/2022 3:03 AM AUTOMOTIVE PAINT TECHNICIAN) Phosphorus 3.1 2.8 - 5.1 mg/dL 07/09/2022 3:48 AM [facility] Blood BLOOD SPECIMEN / Unknown Venipuncture / Unknown 07/09/2022 3:03 AM AUTOMOTIVE PAINT TECHNICIAN 07/09/2022 3:15 AM AUTOMOTIVE PAINT TECHNICIAN Randy Diaz MD LAB - CHEMISTRY MARSHAL MEDEROS [facility] [address] [place] [address], [facility] [phone] * MAGNESIUM BLOOD (07/09/2022 3:03 AM AUTOMOTIVE PAINT TECHNICIAN) Pathologist [facility] Magnesium 2.1 1.6 - 2.6 mg/dL 07/09/2022 3:48 AM [facility] Blood BLOOD SPECIMEN / Unknown Venipuncture / Unknown 07/09/2022 3:03 AM AUTOMOTIVE PAINT TECHNICIAN 07/09/2022 3:15 AM AUTOMOTIVE PAINT TECHNICIAN Randy Diaz MD LAB - CHEMISTRY MARSHAL MEDEROS [address] [address], [facility] [phone] * (ABNORMAL) CBC W AUTO DIFFERENTIAL (07/09/2022 3:03 AM AUTOMOTIVE PAINT TECHNICIAN) Pathologist [facility] WBC 4.9 3.5 - 10.5 10? 3 /uL 07/09/2022 3:25 AM [facility] RBC 2.60(L) 4.30 - 5.70 10? 6 /uL 07/09/2022 3:25 AM [facility] Hemoglobin 8.0(L) 12.0 - 17.6 g/dL 07/09/2022 3:25 AM [facility] Hematocrit 24.4(L) 35.2 - 51.7 % 07/09/2022 3:25 AM [facility] MCV 93.8 80.7 - 98.3 fL 07/09/2022 3:25 AM [facility] MCH 30.8 26.7 - 34.0 pg 07/09/2022 3:25 AM [facility] MCHC 32.8 30.8 - 35.9 g/dL 07/09/2022 3:25 AM [facility] RDW-SD 46.5 36.0 - 50.0 fL 07/09/2022 3:25 AM [facility] RDW-CV 13.7 11.2 - 14.8 % 07/09/2022 3:25 AM [facility] Platelet Count 116(L) 150 - 400 10? 3 /uL 07/09/2022 3:25 AM [facility] MPV 12.1 9.4 - 12.9 fL 07/09/2022 3:25 AM [facility] nRBC Absolute 0.00 0 10? 3 /uL 07/09/2022 3:25 AM [facility] nRBC Auto 0.0 0 /100 WBC 07/09/2022 3:25 AM [facility] Neutrophils % 52.4 35.0 - 70.0 % 07/09/2022 3:25 AM [facility] Lymphocytes % 31.4 20.0 - 43.0 % 07/09/2022 3:25 AM [facility] Monocytes % 10.9 5.0 - 13.0 % 07/09/2022 3:25 AM [facility] Eosinophils % 4.5 0.0 - 6.0 % 07/09/2022 3:25 AM [facility] Basophil % 0.2 0.0 - 2.0 % 07/09/2022 3:25 AM [facility] Neutrophils Absolute 2.55 1.60 - 7.00 10? 3 /uL 07/09/2022 3:25 AM [facility] Lymphocyte Absolute 1.53 1.10 - 3.90 10? 3 /uL 07/09/2022 3:25 AM [facility] Monocytes Absolute 0.53 0.26 - 1.07 10? 3 /uL 07/09/2022 3:25 AM [facility] Eosinophils Absolute 0.22 0.00 - 0.47 10? 3 /uL 07/09/2022 3:25 AM [facility] Basophils Absolute 0.01 0.00 - 0.08 10? 3 /uL 07/09/2022 3:25 AM [facility] Immature Granulocytes % 0.6 0.0 - 1.0 % 07/09/2022 3:25 AM [facility] Immature Granulocytes Absolute 0.03 07/09/2022 3:25 AM [facility] Blood BLOOD SPECIMEN / Unknown Venipuncture / Unknown 07/09/2022 3:03 AM [employer] TECHNICIAN 07/09/2022 3:15 AM [employer] PAINT TECHNICIAN Artur Mcgraw MD LAB - HEMATOLOGY OR DERABLES [facility] [address] [place] [id number], [facility] [phone] * VALPROIC ACID LEVEL (07/09/2022 3:03 AM AUTOMOTIVE PAINT TECHNICIAN) Pathologist [facility] Valproic Acid Total 77 50 - 100 ug/mL 07/09/2022 3:31 AM [facility] Blood BLOOD SPECIMEN / Unknown Venipuncture / Unknown 07/09/2022 3:03 AM AUT[employer]IVE PAINT TECHNICIAN 07/09/2022 3:08 AM AUTOMOTIVE PAINT TECHNICIAN Tolu Leach MD LAB - CHEMISTRY [place] [address] [address], [place] [phone] * (ABNORMAL) BASIC METABOLIC PANEL (CALCIUM TOTAL) (07/08/2022 8:46 PM AUT[employer]IVE PAINT TECHNICIAN) BUN 40(H) 7 - 26 mg/dL 07/08/2022 9:30 PM [facility] Creatinine 2.30(H) 0.71 - 1.16 mg/dL 07/08/2022 9:30 PM [facility] Sodium 145 136 - 145 mmol/L 07/08/2022 9:30 PM [facility] Potassium 4.4 3.5 - 4.5 mmol/L 07/08/2022 9:30 PM AUTOMOTIVE PAINT TECHNICIAN [facility] Chloride 115(H) 98 - 107 mmol/L 07/08/2022 9:30 PM [facility] CO2 23 22 - 29 mmol/L 07/08/2022 9:30 PM [facility] Glucose 105 70 - 115 mg/dL 07/08/2022 9:30 PM [facility] Calcium 8.8 8.4 - 10.2 mg/dL 07/08/2022 9:30 PM [facility] Anion Gap 11 8 - 18 07/08/2022 9:30 PM [facility] BUN/Creatinine Ratio 17 7 - 23 07/08/2022 9:30 PM [facility] Osmolality Calculated 310(H) 270 - 300 mOsm/kg 07/08/2022 9:30 PM [facility] eGFR by CKD-EPI 32(L) >=90 mL/min/1.7 3 m2 07/08/2022 9:30 PM [facility] Blood BLOOD SPECIMEN / Unknown Venipuncture / Unknown 07/08/2022 8:46 PM [employer] PAINT TECHNICIAN 07/08/2022 9:00 PM AUT[employer]IVE PAINT TECHNICIAN Ramya Witt MD LAB - CHEMISTRY ORDERABLES [facility] [address] [place] [address], [facility] [phone] * (ABNORMAL) BASIC METABOLIC PANEL (CALCIUM TOTAL) (07/08/2022 12:22 PM AUTOMOTIVE PAINT TECHNICIAN) BUN 40(H) 7 - 26 mg/dL 07/08/2022 12:58 PM [facility] Creatinine 2.45(H) 0.71 - 1.16 mg/dL 07/08/2022 12:58 PM [facility] Sodium 145 136 - 145 mmol/L 07/08/2022 12:58 PM [facility] Potassium 4.6(H) 3.5 - 4.5 mmol/L 07/08/2022 12:58 PM [facility] Chloride 113(H) 98 - 107 mmol/L 07/08/2022 12:58 PM [facility] CO2 22 22 - 29 mmol/L 07/08/2022 12:58 PM [facility] Glucose 109 70 - 115 mg/dL 07/08/2022 12:58 PM [facility] Calcium 9.2 8.4 - 10.2 mg/dL 07/08/2022 12:58 PM [facility] Anion Gap 15 8 - 18 07/08/2022 12:58 PM [facility] BUN/Creatinine Ratio 16 7 - 23 07/08/2022 12:58 PM [facility] Osmolality Calculated 310(H) 270 - 300 mOsm/kg 07/08/2022 12:58 PM [facility] eGFR by CKD-EPI 29(L) >=90 mL/min/1.7 3 m2 07/08/2022 12:58 PM [facility] Blood BLOOD SPECIMEN / Unknown Venipuncture / Unknown 07/08/2022 12:22 PM AUTOMOTIVE PAINT TECHNICIAN 07/08/2022 12:[address] [facility] Ramya Witt MD LAB - CHEMISTRY ORDERABLES [facility] [address] [place] [address], [facility] [phone] * (ABNORMAL) BASIC METABOLIC PANEL (CALCIUM TOTAL) (07/08/2022 3:[address] [facility]) BUN 39(H) 7 - 26 mg/dL 07/08/2022 4:07 AM [facility] Creatinine 2.64(H) 0.71 - 1.16 mg/dL 07/08/2022 4:07 AM [facility] Sodium 146(H) 136 - 145 mmol/L 07/08/2022 4:07 AM [facility] Potassium 4.4 3.5 - 4.5 mmol/L 07/08/2022 4:07 AM [facility] Chloride 114(H) 98 - 107 mmol/L 07/08/2022 4:07 AM [facility] CO2 20(L) 22 - 29 mmol/L 07/08/2022 4:07 AM [facility] Glucose 99 70 - 115 mg/dL 07/08/2022 4:07 AM [facility] Calcium 8.8 8.4 - 10.2 mg/dL 07/08/2022 4:07 AM [facility] Anion Gap 16 8 - 18 07/08/2022 4:07 AM [facility] BUN/Creatinine Ratio 15 7 - 23 07/08/2022 4:07 AM [facility] Osmolality Calculated 311(H) 270 - 300 mOsm/kg 07/08/2022 4:07 AM [facility] eGFR by CKD-EPI 27(L) >=90 mL/min/1.7 3 m2 07/08/2022 4:07 AM [facility] Blood BLOOD SPECIMEN / Unknown Venipuncture / Unknown 07/08/2022 3:34 AM [employer]IVE PAINT TECHNICIAN 07/08/2022 3:37 AM AUTOMOTIVE PAINT TECHNICIAN Ramya Witt MD LAB - CHEMISTRY ORDERABLES [address] [address], [facility] [phone] * (ABNORMAL) PHOSPHORUS BLOOD (07/08/2022 3:34 AM AUTOMOTIVE PAINT TECHNICIAN) Phosphorus 2.4(L) 2.8 - 5.1 mg/dL 07/08/2022 4:07 AM [facility] Blood BLOOD SPECIMEN / Unknown Venipuncture / Unknown 07/08/2022 3:34 AM [employer]OM[employer]IVE PAINT TECHNICIAN 07/08/2022 3:37 AM AUTOMOTIVE PAINT TECHNICIAN Randy Diaz MD LAB - CHEMISTRY [place] [facility] [address] [address], [facility] [phone] * MAGNESIUM BLOOD (07/08/2022 3:34 AM AUTOMOTIVE PAINT TECHNICIAN) Magnesium 2.2 1.6 - 2.6 mg/dL 07/08/2022 4:07 AM [facility] Blood BLOOD SPECIMEN / Unknown Venipuncture / Unknown 07/08/2022 3:34 AM AUTOMOTIVE PAINT TECHNICIAN 07/08/2022 3:37 AM AUTOMOTIVE PAINT TECHNICIAN Randy Diaz MD LAB - CHEMISTRY MARSHAL [facility] [address] [place] [address], [facility] [phone] * (ABNORMAL) CBC W AUTO DIFFERENTIAL (07/08/2022 3:[address] [facility]) WBC 6.0 3.5 - 10.5 10? 3 /uL 07/08/2022 4:04 AM [facility] RBC 2.85(L) 4.30 - 5.70 10? 6 /uL 07/08/2022 4:04 AM [facility] Hemoglobin 8.8(L) 12.0 - 17.6 g/dL 07/08/2022 4:04 AM [facility] Hematocrit 26.7(L) 35.2 - 51.7 % 07/08/2022 4:04 AM [facility] MCV 93.7 80.7 - 98.3 fL 07/08/2022 4:04 AM [facility] MCH 30.9 26.7 - 34.0 pg 07/08/2022 4:04 AM [facility] MCHC 33.0 30.8 - 35.9 g/dL 07/08/2022 4:04 AM [facility] RDW-SD 47.1 36.0 - 50.0 fL 07/08/2022 4:04 AM [facility] RDW-CV 13.9 11.2 - 14.8 % 07/08/2022 4:04 AM [facility] Platelet Count 144(L) 150 - 400 10? 3 /uL 07/08/2022 4:04 AM [facility] MPV 12.2 9.4 - 12.9 fL 07/08/2022 4:04 AM [facility] nRBC Absolute 0.00 0 10? 3 /uL 07/08/2022 4:04 AM [facility] nRBC Auto 0.0 0 /100 WBC 07/08/2022 4:04 AM [facility] Neutrophils % 55.5 35.0 - 70.0 % 07/08/2022 4:04 AM [facility] Lymphocytes % 25.6 20.0 - 43.0 % 07/08/2022 4:04 AM [facility] Monocytes % 11.8 5.0 - 13.0 % 07/08/2022 4:04 AM [facility] Eosinophils % 6.2(H) 0.0 - 6.0 % 07/08/2022 4:04 AM [facility] Basophil % 0.2 0.0 - 2.0 % 07/08/2022 4:04 AM [facility] Neutrophils Absolute 3.34 1.60 - 7.00 10? 3 /uL 07/08/2022 4:04 AM [facility] Lymphocyte Absolute 1.54 1.10 - 3.90 10? 3 /uL 07/08/2022 4:04 AM [facility] Monocytes Absolute 0.71 0.26 - 1.07 10? 3 /uL 07/08/2022 4:04 AM [facility] Eosinophils Absolute 0.37 0.00 - 0.47 10? 3 /uL 07/08/2022 4:04 AM [facility] Basophils Absolute 0.01 0.00 - 0.08 10? 3 /uL 07/08/2022 4:04 AM [facility] Immature Granulocytes % 0.7 0.0 - 1.0 % 07/08/2022 4:04 AM [facility] Immature Granulocytes Absolute 0.04 07/08/2022 4:04 AM [facility] Blood BLOOD SPECIMEN / Unknown Venipuncture / Unknown 07/08/2022 3:34 AM AUTOMOTIVE PAINT TECHNICIAN 07/08/2022 3:[address] [facility] Artur Mcgraw MD LAB - HEMATOLOGY OR DERABLES [facility] [address] [place] [address], [facility] [phone] * (ABNORMAL) BASIC METABOLIC PANEL (CALCIUM TOTAL) (07/07/2022 7:57 PM AUTOMOTIVE PAINT TECHNICIAN) BUN 39(H) 7 - 26 mg/dL 07/07/2022 8:27 PM [facility] Creatinine 2.75(H) 0.71 - 1.16 mg/dL 07/07/2022 8:27 PM [facility] Sodium 145 136 - 145 mmol/L 07/07/2022 8:27 PM [facility] Potassium 4.4 3.5 - 4.5 mmol/L 07/07/2022 8:27 PM [facility] Chloride 115(H) 98 - 107 mmol/L 07/07/2022 8:27 PM [facility] CO2 20(L) 22 - 29 mmol/L 07/07/2022 8:27 PM [facility] Glucose 106 70 - 115 mg/dL 07/07/2022 8:27 PM [facility] Calcium 8.9 8.4 - 10.2 mg/dL 07/07/2022 8:27 PM [facility] Anion Gap 14 8 - 18 07/07/2022 8:27 PM [facility] BUN/Creatinine Ratio 14 7 - 23 07/07/2022 8:27 PM [facility] Osmolality Calculated 310(H) 270 - 300 mOsm/kg 07/07/2022 8:27 PM [facility] eGFR by CKD-EPI 25(L) >=90 mL/min/1.7 3 m2 07/07/2022 8:27 PM [facility] Blood BLOOD SPECIMEN / Unknown Venipuncture / Unknown 07/07/2022 7:57 PM AUTOMOTIVE PAINT TECHNICIAN 07/07/2022 8:[address] [facility] Ramya Witt MD LAB - CHEMISTRY ORDERABLES [facility] [address] [place] [address], [facility] [phone] * (ABNORMAL) BASIC METABOLIC PANEL (CALCIUM TOTAL) (07/07/2022 12:[address] [facility]) BUN 38(H) 7 - 26 mg/dL 07/07/2022 12:41 PM [facility] Creatinine 2.85(H) 0.71 - 1.16 mg/dL 07/07/2022 12:41 PM [facility] Sodium 141 136 - 145 mmol/L 07/07/2022 12:41 PM [facility] Potassium 4.6(H) 3.5 - 4.5 mmol/L 07/07/2022 12:41 PM [facility] Chloride 113(H) 98 - 107 mmol/L 07/07/2022 12:41 PM [facility] CO2 23 22 - 29 mmol/L 07/07/2022 12:41 PM [facility] Glucose 117(H) 70 - 115 mg/dL 07/07/2022 12:41 PM [facility] Calcium 8.8 8.4 - 10.2 mg/dL 07/07/2022 12:41 PM [facility] Anion Gap 10 8 - 18 07/07/2022 12:41 PM [facility] BUN/Creatinine Ratio 13 7 - 23 07/07/2022 12:41 PM [facility] Osmolality Calculated 302(H) 270 - 300 mOsm/kg 07/07/2022 12:41 PM [facility] eGFR by CKD-EPI 24(L) >=90 mL/min/1.7 3 m2 07/07/2022 12:41 PM [facility] Blood BLOOD SPECIMEN / Unknown Venipuncture / Unknown 07/07/2022 12:05 PM AUTOMOTIVE PAINT TECHNICIAN 07/07/2022 12:11 PM AUTOMOTIVE PAINT TECHNICIAN Ramya Witt MD LAB - CHEMISTRY ORDERABLES [facility] [address] [place] [phone], [facility] [phone] * CARDIAC EKG ORDER (07/07/2022 10:38 AM AUTOMOTIVE PAINT TECHNICIAN) Narrative 07/07/2022 10:38 AM AUTOMOTIVE PAINT TECHNICIAN Ordered by an unspecified provider. Scanned Document CARDIAC SERVICES ORD ERABLES * XR CHEST 1VW PORTABLE (07/07/2022 8:37 AM AUTOMOTIVE PAINT TECHNICIAN) Anatomical Region Laterality Modality Chest Radiographic Cynthia ging 07/07/2022 10:0 2 AM AUTOMOTIVE PAINT TECHNICIAN Narrative 07/07/2022 10:35 AM AUTOMOTIVE PAINT TECHNICIAN EXAMINATION: XR CHEST 1VW PORTABLE HISTORY: R56.9: Seizures (CMS/HCC) T17.908D: Aspiration into airway, subsequent encounter COMPARISON: Chest x-ray dated 07/05/2022 FINDINGS/IMPRESSION: Endotracheal tube terminates in the mid thoracic trachea. Interval significantly improved aeration of the right lung. Mild bibasilar atelectasis and or airspace opacity. Small right pleural fluid is present. No pneumothorax is visible. The cardiomediastinal silhouette is normal. The visible bony thorax is intact. > Dictated by Arthur Hawk (Mill Attendant) Eron Thomason have personally reviewed and interpreted this examination/study. > Interpreting Provider: Eron Payton on 07/07/2022 10:35 AM Procedure Note Eron Payton MD - 07/07/2022 EXAMINATION: XR CHEST 1VW PORTABLE HISTORY: R56.9: Seizures (CMS/HCC) T17.908D: Aspiration into airway, subsequent encounter COMPARISON: Chest x-ray dated 07/05/2022 FINDINGS/IMPRESSION: Endotracheal tube terminates in the mid thoracic trachea. Interval significantly improved aeration of the right lung. Mildbibasilar atelectasis and or airspace opacity. Small right pleural fluid ispresent. No pneumothorax is visible. The cardiomediastinal silhouette is normal.The visible bony thorax is intact. > Dictated by Arthur Hawk (Mill Attendant) Eron Thomason have personally reviewed and interpreted this examination/study. > Interpreting Provider: Eron Payton on 07/07/2022 10:35 AM Tolu Leach MD DIAGNOSTIC IMAGING O RDERABLES * (ABNORMAL) BASIC METABOLIC PANEL (CALCIUM TOTAL) (07/07/2022 3:45 AM AUTOMOTIVE PAINT TECHNICIAN) BUN 39(H) 7 - 26 mg/dL 07/07/2022 5:05 AM [facility] Creatinine 2.85(H) 0.71 - 1.16 mg/dL 07/07/2022 5:05 AM [facility] Sodium 144 136 - 145 mmol/L 07/07/2022 5:05 AM [facility] Potassium 4.5 3.5 - 4.5 mmol/L 07/07/2022 5:05 AM [facility] Chloride 114(H) 98 - 107 mmol/L 07/07/2022 5:05 AM [facility] CO2 22 22 - 29 mmol/L 07/07/2022 5:05 AM [facility] Glucose 118(H) 70 - 115 mg/dL 07/07/2022 5:05 AM [facility] Calcium 8.6 8.4 - 10.2 mg/dL 07/07/2022 5:05 AM [facility] Anion Gap 13 8 - 18 07/07/2022 5:05 AM [facility] BUN/Creatinine Ratio 14 7 - 23 07/07/2022 5:05 AM [facility] Osmolality Calculated 308(H) 270 - 300 mOsm/kg 07/07/2022 5:05 AM [facility] eGFR by CKD-EPI 24(L) >=90 mL/min/1.7 3 m2 07/07/2022 5:05 AM [facility] Blood BLOOD SPECIMEN / Unknown Venipuncture / Unknown 07/07/2022 3:45 AM AUTOMOTIVE PAINT TECHNICIAN 07/07/2022 3:54 AM AUTOMOTIVE PAINT TECHNICIAN Ramya Witt MD LAB - CHEMISTRY ORDERABLES Performing Organization Address City/[facility]/ZIP Co de Phone Number [address] [address], [place] [phone] * PHOSPHORUS BLOOD (07/07/2022 3:45 AM AUTOMOTIVE PAINT TECHNICIAN) Phosphorus 2.8 2.8 - 5.1 mg/dL 07/07/2022 4:25 AM [facility] Blood BLOOD SPECIMEN / Unknown Venipuncture / Unknown 07/07/2022 3:45 AM AUTOMOTIVE PAINT TECHNICIAN 07/07/2022 3:54 AM AUTOMOTIVE PAINT TECHNICIAN Randy Diaz MD LAB - CHEMISTRY [facility]DE [facility] [address] [address], [place] [phone] * MAGNESIUM BLOOD (07/07/2022 3:45 AM AUTOMOTIVE PAINT TECHNICIAN) Pathologist [facility] Magnesium 2.3 1.6 - 2.6 mg/dL 07/07/2022 4:25 AM [facility] Blood BLOOD SPECIMEN / Unknown Venipuncture / Unknown 07/07/2022 3:45 AM AUTOMOTIVE PAINT TECHNICIAN 07/07/2022 3:54 AM AUTOMOTIVE PAINT TECHNICIAN Randy Diaz MD LAB - CHEMISTRY ORDE GATITO [facility] [address] [place] [address], [facility] [phone] * (ABNORMAL) CBC W AUTO DIFFERENTIAL (07/07/2022 3:45 AM AUTOMOTIVE PAINT TECHNICIAN) Pathologist [facility] WBC 5.0 3.5 - 10.5 10? 3 /uL 07/07/2022 4:01 AM [facility] RBC 3.12(L) 4.30 - 5.70 10? 6 /uL 07/07/2022 4:01 AM [facility] Hemoglobin 9.5(L) 12.0 - 17.6 g/dL 07/07/2022 4:01 AM [facility] Hematocrit 28.9(L) 35.2 - 51.7 % 07/07/2022 4:01 AM [facility] MCV 92.6 80.7 - 98.3 fL 07/07/2022 4:01 AM [facility] MCH 30.4 26.7 - 34.0 pg 07/07/2022 4:01 AM [facility] MCHC 32.9 30.8 - 35.9 g/dL 07/07/2022 4:01 AM [facility] RDW-SD 47.0 36.0 - 50.0 fL 07/07/2022 4:01 AM [facility] RDW-CV 13.9 11.2 - 14.8 % 07/07/2022 4:01 AM [facility] Platelet Count 162 150 - 400 10? 3 /uL 07/07/2022 4:01 AM [facility] MPV 12.7 9.4 - 12.9 fL 07/07/2022 4:01 AM [facility] nRBC Absolute 0.00 0 10? 3 /uL 07/07/2022 4:01 AM [facility] nRBC Auto 0.0 0 /100 WBC 07/07/2022 4:01 AM [facility] Neutrophils % 52.9 35.0 - 70.0 % 07/07/2022 4:01 AM [facility] Lymphocytes % 26.5 20.0 - 43.0 % 07/07/2022 4:01 AM [facility] Monocytes % 12.0 5.0 - 13.0 % 07/07/2022 4:01 AM [facility] Eosinophils % 7.6(H) 0.0 - 6.0 % 07/07/2022 4:01 AM [facility] Basophil % 0.2 0.0 - 2.0 % 07/07/2022 4:01 AM [facility] Neutrophils Absolute 2.63 1.60 - 7.00 10? 3 /uL 07/07/2022 4:01 AM [facility] Lymphocyte Absolute 1.32 1.10 - 3.90 10? 3 /uL 07/07/2022 4:01 AM [facility] Monocytes Absolute 0.60 0.26 - 1.07 10? 3 /uL 07/07/2022 4:01 AM [facility] Eosinophils Absolute 0.38 0.00 - 0.47 10? 3 /uL 07/07/2022 4:01 AM [facility] Basophils Absolute 0.01 0.00 - 0.08 10? 3 /uL 07/07/2022 4:01 AM [facility] Immature Granulocytes % 0.8 0.0 - 1.0 % 07/07/2022 4:01 AM [facility] Immature Granulocytes Absolute 0.04 07/07/2022 4:01 AM [facility] Blood BLOOD SPECIMEN / Unknown Venipuncture / Unknown 07/07/2022 3:45 AM AUTOMOTIVE PAINT TECHNICIAN 07/07/2022 3:54 AM AUTOMOTIVE PAINT TECHNICIAN Artur Mcgraw MD LAB - HEMATOLOGY OR DERABLES Performing Organization Address City/[facility]/ZIP Co de Phone Number [facility] [address] [place] [phone], [place] [phone] * VALPROIC ACID LEVEL (07/07/2022 3:45 AM AUTOMOTIVE PAINT TECHNICIAN) Pathologist [facility] Valproic Acid Total 72 50 - 100 ug/mL 07/07/2022 4:20 AM [facility] Blood BLOOD SPECIMEN / Unknown Venipuncture / Unknown 07/07/2022 3:45 AM AUTOMOTIVE PAINT TECHNICIAN 07/07/2022 3:53 AM AUTOMOTIVE PAINT TECHNICIAN Ramya Witt MD LAB - CHEMISTRY ORDERABLES Performing Organization Address [facility] Co de Phone Number [address] [address], [place] [phone] * TRIGLYCERIDES BLOOD (07/07/2022 3:45 AM AUTOMOTIVE PAINT TECHNICIAN) [facility] Triglycerides 102 <150 mg/dL 07/07/2022 4:25 AM [facility] Comment: ATP III Classification of Triglycerides: ?<150 mg/dL: ??Normal ? 150 - 199 mg/dL: ??Borderline High ? 200 - 400 mg/dL: ??High ?>500 mg/dL: ??Very High Blood BLOOD SPECIMEN / Unknown Venipuncture / Unknown 07/07/2022 3:45 AM AUTOMOTIVE PAINT TECHNICIAN 07/07/2022 3:54 AM AUTOMOTIVE PAINT TECHNICIAN Ramya Witt MD LAB - CHEMISTRY ORDERABLES Performing Organization Address [facility]/ZIP Co de Phone Number [facility] [address] [place] [address], [place] [phone] * (ABNORMAL) BASIC METABOLIC PANEL (CALCIUM TOTAL) (07/06/2022 8:25 PM AUTOMOTIVE PAINT TECHNICIAN) Pathologist [facility] BUN 34(H) 7 - 26 mg/dL 07/06/2022 9:03 PM [facility] Creatinine 2.48(H) 0.71 - 1.16 mg/dL 07/06/2022 9:03 PM [facility] Sodium 146(H) 136 - 145 mmol/L 07/06/2022 9:03 PM [facility] Potassium 3.7 3.5 - 4.5 mmol/L 07/06/2022 9:03 PM [facility] Chloride 119(H) 98 - 107 mmol/L 07/06/2022 9:03 PM [facility] CO2 19(L) 22 - 29 mmol/L 07/06/2022 9:03 PM [facility] Glucose 88 70 - 115 mg/dL 07/06/2022 9:03 PM [facility] Calcium 7.4(L) 8.4 - 10.2 mg/dL 07/06/2022 9:03 PM [facility] Anion Gap 12 8 - 18 07/06/2022 9:03 PM [facility] BUN/Creatinine Ratio 14 7 - 23 07/06/2022 9:03 PM [facility] Osmolality Calculated 309(H) 270 - 300 mOsm/kg 07/06/2022 9:03 PM [facility] eGFR by CKD-EPI 29(L) >=90 mL/min/1.7 3 m2 07/06/2022 9:03 PM [facility] Blood BLOOD SPECIMEN / Unknown Venipuncture / Unknown 07/06/2022 8:25 PM AUTOMOTIVE PAINT TECHNICIAN 07/06/2022 8:[address] [facility] Ramya Witt MD LAB - CHEMISTRY ORDERABLES [facility] [address] [place] [address], [facility] [phone] * (ABNORMAL) BASIC METABOLIC PANEL (CALCIUM TOTAL) (07/06/2022 12:[address] [facility]) BUN 37(H) 7 - 26 mg/dL 07/06/2022 12:52 PM [facility] Creatinine 2.73(H) 0.71 - 1.16 mg/dL 07/06/2022 12:52 PM [facility] Sodium 144 136 - 145 mmol/L 07/06/2022 12:52 PM [facility] Potassium 4.7(H) 3.5 - 4.5 mmol/L 07/06/2022 12:52 PM [facility] Chloride 115(H) 98 - 107 mmol/L 07/06/2022 12:52 PM [facility] CO2 22 22 - 29 mmol/L 07/06/2022 12:52 PM [facility] Glucose 91 70 - 115 mg/dL 07/06/2022 12:52 PM [facility] Calcium 8.1(L) 8.4 - 10.2 mg/dL 07/06/2022 12:52 PM [facility] Anion Gap 12 8 - 18 07/06/2022 12:52 PM [facility] BUN/Creatinine Ratio 14 7 - 23 07/06/2022 12:52 PM [facility] Osmolality Calculated 306(H) 270 - 300 mOsm/kg 07/06/2022 12:52 PM [facility] eGFR by CKD-EPI 26(L) >=90 mL/min/1.7 3 m2 07/06/2022 12:52 PM [facility] Blood BLOOD SPECIMEN / Unknown Venipuncture / Unknown 07/06/2022 12:18 PM AUTOMOTIVE PAINT TECHNICIAN 07/06/2022 12:[address] [facility] Ramya Witt MD LAB - CHEMISTRY ORDERABLES [facility] [address] [place] [phone], [facility] [phone] * (ABNORMAL) BLOOD GASES ART + COOX PANEL (07/06/2022 5:[address] [facility]) pH Arterial 7.48(H) 7.35 - 7.45 pH 07/06/2022 5:25 AM [facility] pO2 Arterial 69(L) 80 - 100 mmHg 07/06/2022 5:25 AM [facility] pCO2 Arterial 32(L) 35 - 45 mmHg 5:25 AM [facility] HCO3 Arterial 24 20 - 30 mmol/l 07/06/2022 5:25 AM [facility] BE Arterial 0.7 -2.0 - 2.0 mmol/L 07/06/2022 5:25 AM [facility] Oxyhemoglobin Arterial 93.5 % 07/06/2022 5:25 AM [facility] Dexoyhemoglobin (HHB) % 3.6 % 07/06/2022 5:25 AM [facility] Methemoglobin 1.0 0.0 - 2.0 % 07/06/2022 5:25 AM [facility] Carboxyhemoglobin 1.8 0.0 - 2.0 % 2022 5:25 AM [facility] O2 Content Arterial 13.3 Interpret within clinical context ml/dL 07/06/2022 5:25 AM [facility] Hemoglobin by COOX 10.1(L) 12.0 - 17.6 g/dL 07/06/2022 5:25 AM [facility] O2 Saturation Arterial 96 90 - 100 % 07/06/2022 5:25 AM [facility] FI O2 Arterial 60.0 % 07/06/2022 5:25 AM [facility] Blood, arterial ARTERIAL BLOOD SPECIMEN / Unknown Arterial Puncture / Unknown 07/06/2022 5:[address] [facility] 07/06/2022 5:23 AM [facility] - 07/06/2022 5:[address] [facility] Carboxyhemoglobin Normal Concentration: Non-smokers: 0-2%; Smokers: 0-9%; Toxic: >20% Ramya Witt MD LAB - BLOOD GAS ES ORDERABLES [facility] [address] [place] [phone], [facility] [phone] * (ABNORMAL) BASIC METABOLIC PANEL (CALCIUM TOTAL) (07/06/2022 3:[address] [facility]) BUN 34(H) 7 - 26 mg/dL 07/06/2022 4:20 AM [facility] Creatinine 2.76(H) 0.71 - 1.16 mg/dL 07/06/2022 4:20 AM [facility] Sodium 150(H) 136 - 145 mmol/L 07/06/2022 4:20 AM [facility] Potassium 2.7(L) 3.5 - 4.5 mmol/L 07/06/2022 4:20 AM [facility] Chloride 115(H) 98 - 107 mmol/L 07/06/2022 4:20 AM [facility] CO2 21(L) 22 - 29 mmol/L 07/06/2022 4:20 AM [facility] Glucose 108 70 - 115 mg/dL 07/06/2022 4:20 AM [facility] Calcium 7.6(L) 8.4 - 10.2 mg/dL 07/06/2022 4:20 AM [facility] Anion Gap 17 8 - 18 07/06/2022 4:20 AM [facility] BUN/Creatinine Ratio 12 7 - 23 07/06/2022 4:20 AM [facility] Osmolality Calculated 318(H) 270 - 300 mOsm/kg 07/06/2022 4:20 AM [facility] eGFR by CKD-EPI 25(L) >=90 mL/min/1.7 3 m2 07/06/2022 4:20 AM [facility] Blood BLOOD SPECIMEN / Unknown Venipuncture / Unknown 07/06/2022 3:49 AM [employer] TECH[employer]ICIAN 07/06/2022 3:54 AM [employer] TECHNICIAN Ramya Witt MD LAB - CHEMISTRY ORDERABLES [address] [id number], [facility] [phone] * PHOSPHORUS BLOOD (07/06/2022 3:49 AM [employer] PAINT TECHNICIAN) Phosphorus 2.9 2.8 - 5.1 mg/dL 07/06/2022 4:20 AM [facility] Blood BLOOD SPECIMEN / Unknown Venipuncture / Unknown 07/06/2022 3:49 AM [employer] PAINT TECHNICIAN 07/06/2022 3:54 AM AUT[employer] PAINT TECHNICIAN Randy Diaz MD LAB - CHEMISTRY MARSHAL MEDEROS [facility] [address] [place] [id number], [facility] [phone] * MAGNESIUM BLOOD (07/06/2022 3:49 AM AUTOMOTIVE PAINT TECHNICIAN) [facility] Magnesium 2.0 1.6 - 2.6 mg/dL 07/06/2022 4:20 AM [facility] Blood BLOOD SPECIMEN / Unknown Venipuncture / Unknown 07/06/2022 3:49 AM AUT[employer]IVE PAINT TECHNICIAN 07/06/2022 3:54 AM AUTOMOTIVE PAINT TECHNICIAN Randy Diaz MD LAB - CHEMISTRY MARSHAL MEDEROS Performing Organization Address [facility]/ZIP Co de Phone Number [address] [phone], [facility] [phone] * (ABNORMAL) CBC W AUTO DIFFERENTIAL (07/06/2022 3:49 AM AUTOMOTIVE PAINT TECHNICIAN) [facility] WBC 6.5 3.5 - 10.5 10? 3 /uL 07/06/2022 4:05 AM [facility] RBC 3.16(L) 4.30 - 5.70 10? 6 /uL 07/06/2022 4:05 AM [facility] Hemoglobin 9.7(L) 12.0 - 17.6 g/dL 07/06/2022 4:05 AM [facility] Hematocrit 29.3(L) 35.2 - 51.7 % 07/06/2022 4:05 AM [facility] MCV 92.7 80.7 - 98.3 fL 07/06/2022 4:05 AM [facility] MCH 30.7 26.7 - 34.0 pg 07/06/2022 4:05 AM [facility] MCHC 33.1 30.8 - 35.9 g/dL 07/06/2022 4:05 AM [facility] RDW-SD 46.5 36.0 - 50.0 fL 07/06/2022 4:05 AM [facility] RDW-CV 13.6 11.2 - 14.8 % 07/06/2022 4:05 AM [facility] Platelet Count 157 150 - 400 10? 3 /uL 07/06/2022 4:05 AM [facility] MPV 11.8 9.4 - 12.9 fL 07/06/2022 4:05 AM [facility] nRBC Absolute 0.00 0 10? 3 /uL 07/06/2022 4:05 AM [facility] nRBC Auto 0.0 0 /100 WBC 07/06/2022 4:05 AM [facility] Neutrophils % 53.9 35.0 - 70.0 % 07/06/2022 4:05 AM [facility] Lymphocytes % 21.9 20.0 - 43.0 % 07/06/2022 4:05 AM [facility] Monocytes % 18.4(H) 5.0 - 13.0 % 07/06/2022 4:05 AM [facility] Eosinophils % 4.9 0.0 - 6.0 % 07/06/2022 4:05 AM [facility] Basophil % 0.3 0.0 - 2.0 % 07/06/2022 4:05 AM [facility] Neutrophils Absolute 3.51 1.60 - 7.00 10? 3 /uL 07/06/2022 4:05 AM [facility] Lymphocyte Absolute 1.43 1.10 - 3.90 10? 3 /uL 07/06/2022 4:05 AM [facility] Monocytes Absolute 1.20(H) 0.26 - 1.07 10? 3 /uL 07/06/2022 4:05 AM [facility] Eosinophils Absolute 0.32 0.00 - 0.47 10? 3 /uL 07/06/2022 4:05 AM [facility] Basophils Absolute 0.02 0.00 - 0.08 10? 3 /uL 07/06/2022 4:05 AM [facility] Immature Granulocytes % 0.6 0.0 - 1.0 % 07/06/2022 4:05 AM [facility] Immature Granulocytes Absolute 0.04 07/06/2022 4:05 AM [facility] Blood BLOOD SPECIMEN / Unknown Venipuncture / Unknown 07/06/2022 3:49 AM [employer] PAINT TECHNICIAN 07/06/2022 3:55 AM [employer] PAINT TECHNICIAN Artur Mcgraw MD LAB - HEMATOLOGY [place] DERABLES [facility] [address] [place] [address], [facility] [phone] * (ABNORMAL) BLOOD GASES ART + COOX PANEL (07/05/2022 10:42 PM AUTOMOTIVE PAINT TECHNICIAN) pH Arterial 7.48(H) 7.35 - 7.45 pH 07/05/2022 10:56 PM [facility] pO2 Arterial 163(H) 80 - 100 mmHg 07/05/2022 10:56 PM [facility] pCO2 Arterial 33(L) 35 - 45 mmHg 10:56 PM [facility] HCO3 Arterial 25 20 - 30 mmol/l 07/05/2022 10:56 PM [facility] BE Arterial 1.4 -2.0 - 2.0 mmol/L 07/05/2022 10:56 PM [facility] Oxyhemoglobin Arterial 97.0 % 07/05/2022 10:56 PM [facility] Dexoyhemoglobin (HHB) % 0.0 % 07/05/2022 10:56 PM [facility] Methemoglobin 2.0 0.0 - 2.0 % 07/05/2022 10:56 PM [facility] Carboxyhemoglobin 1.0 0.0 - 2.0 % 2022 10:56 PM [facility] O2 Content Arterial 14.4 Interpret within clinical context ml/dL 07/05/2022 10:56 PM [facility] Hemoglobin by COOX 10.3(L) 12.0 - 17.6 g/dL 07/05/2022 10:56 PM [facility] O2 Saturation Arterial 100 90 - 100 % 07/05/2022 10:56 PM [facility] FI O2 Arterial 100.0 % 07/05/2022 10:56 PM [facility] Blood, arterial ARTERIAL BLOOD SPECIMEN / Unknown Arterial Puncture / Unknown 07/05/2022 10:42 PM AUTOMOTIVE PAINT TECHNICIAN 07/05/2022 10:50 PM AUTOMOTIVE PAINT TECHNICIAN Narrative [facility] - 07/05/2022 10:56 PM AUTOMOTIVE PAINT TECHNICIAN Carboxyhemoglobin Normal Concentration: Non-smokers: 0-2%; Smokers: 0-9%; Toxic: >20% Ramya Witt MD LAB - BLOOD GAS ES ORDERABLES [facility] [address] [place] [address], [facility] [phone] * CULTURE BRONCHIAL WASHING+GRAM STAIN (07/05/2022 10:31 PM AUTOMOTIVE PAINT TECHNICIAN) Culture No growth JELLY 07/07/2022 3:52 PM AUTOMOTIVE PAINT TECHNICIAN [facility] Gram Stain Rare Polymorphonuclear cells 07/07/2022 3:52 PM AUTOMOTIVE PAINT TECHNICIAN [facility] Gram Stain Rare Squamous epithelial cells 07/07/2022 3:52 PM AUTOMOTIVE PAINT TECHNICIAN [facility] Gram Stain No organisms seen 023 3:52 PM AUTOMOTIVE PAINT TECHNICIAN [facility] NETWORK MICROBIOLOGY Microbiology SPECIMEN FROM LUNG OBTAINED BY BRONCHIAL WASHING PROCEDURE / Unknown Collection / Unknown 07/05/2022 10:31 PM AUTOMOTIVE PAINT TECHNICIAN 07/05/2022 10:50 PM AUTOMOTIVE PAINT TECHNICIAN Ramya Witt MD LAB - MICROBIOL OGY ORDERABLES [facility] MICRO[facility]OLOG[facility] [address] [place] [address], [facility] [phone] * CLOBAZAM QUANT BLOOD (07/05/2022 10:30 PM AUTOMOTIVE PAINT TECHNICIAN) Clobazam 222 30 - 300 ng/mL 07/08/2022 5:43 AM AUTOMOTIVE PAINT TECHNICIAN [facility] ([facility]) Comment: INTERPRETIVE INFORMATION: Clobazam and Metabolite, Quant, ?S/P Clobazam Therapeutic Range: 30-300 ng/mL Toxic Range: Greater than 500 ng/mL N-Desmethylclobazam Therapeutic Range: 300-3000 ng/mL Toxic Range: Greater than 5000 ng/mL Clobazam is a benzodiazepine drug indicated for adjunctive treatment for seizures associated with [place]-Gastaut syndrome in patients 2 years and older. ??The therapeutic range is based on serum, pre-dose (trough) draw collection at steady-state concentration. ??The pharmacokinetics of clobazam are influenced by drug-drug interactions and by poor [id number] metabolism. ??The metabolite, N-desmethylclobazam has about 20% activity of clobazam. ??Adverse effects may include constipation, somnolence, sedation and skin rash. ??The concomitant use of clobazam with other central nervous system (LINOTYPE MACHINIST APPRENTICE) depressants may increase the risk of somnolence and sedation. Test developed and characteristics determined by [facility]. See Compliance Statement B: [employer] N-Desmethylclobazam 1178 300 - 3000 ng/mL 07/08/2022 5:43 AM AUTOMOTIVE PAINT TECHNICIAN [facility] ([facility]) Comment: Performed By: [facility] [address] [place] [address] Typing Bookkeeper: Power Milian MD, PhD Blood BLOOD SPECIMEN / Unknown Venipuncture / Unknown 07/05/2022 10:30 PM AUTOMOTIVE PAINT TECHNICIAN 07/05/2022 10:50 PM AUTOMOTIVE PAINT TECHNICIAN Tolu Leach MD LAB - CHEMISTRY ORDE GATITO [facility]) [address] * (ABNORMAL) VALPROIC ACID FREE+TOTAL PANEL (07/05/2022 10:30 PM AUTOMOTIVE PAINT TECHNICIAN) Valproic Acid % Free 75(H) 5 - 18 % 07/07/2022 7:34 PM AUTOMOTIVE PAINT TECHNICIAN [facility] ([facility]) Comment: The result is physiologically unusual. ??The free valproic acid concentration is ??typically about 5 - 18 percent of the total valproic acid concentration. INTERPRETIVE INFORMATION: VPA-percent Free Valproic Acid, Total [...] include headache, somnolence and dizziness. Performed By: [facility] [address] [place] [address] Typing Bookkeeper: Power Milian MD, PhD Valproic Acid Free 42(H) 7 - 23 ug/mL 07/07/2022 7:34 PM AUTOMOTIVE PAINT TECHNICIAN [employer] ([facility]) Valproic Acid Total 56 50 - 125 ug/mL 07/07/2022 7:34 PM AUTOMOTIVE PAINT TECHNICIAN [employer] ([facility]) Blood BLOOD SPECIMEN / Unknown Venipuncture / Unknown 07/05/2022 10:30 PM AUTOMOTIVE PAINT TECHNICIAN 07/05/2022 10:50 PM AUTOMOTIVE PAINT TECHNICIAN Tolu Leach MD LAB - THERAPEUTIC DR DIAZ MONITORING ORDERABLES [facility]) [address] [place] [address], [facility] * XR CHEST 1VW PORTABLE (07/05/2022 10:14 PM AUTOMOTIVE PAINT TECHNICIAN) Anatomical Region Laterality Modality Chest Radiographic Cynthia ging 07/06/2022 9:01 AM AUTOMOTIVE PAINT TECHNICIAN Narrative 07/06/2022 10:59 AM AUTOMOTIVE PAINT TECHNICIAN EXAMINATION: XR CHEST 1VW PORTABLE HISTORY: R91.8: Pulmonary infiltrate COMPARISON: Chest x-ray dated 07/05/2022 FINDINGS/IMPRESSION: Endotracheal tube terminates in the mid thoracic trachea. Interval significantly improved aeration of the right lung. Moderate opacity remains in the right mid and lower chest consistent with atelectasis/airspace disease. Small right pleural fluid is present. There is improved aeration of the left lower lung field, with mild residual atelectasis/airspace disease. Pleural fluid may be associated. No pneumothorax is visible. The cardiomediastinal silhouette is normal. The visible bony thorax is intact. > Dictated by Guilherme Foy MD (operations vice president). IRachel MD have personally reviewed and interpreted this examination/study. > Interpreting Provider: Rachel Phillips MD on 07/06/2022 10:59 AM Procedure Note Rachel Phillips MD - 07/06/2022 EXAMINATION: XR CHEST 1VW PORTABLE HISTORY: R91.8: Pulmonary infiltrate COMPARISON: Chest x-ray dated 07/05/2022 FINDINGS/IMPRESSION: Endotracheal tube terminates in the mid thoracic trachea. Interval significantly improved aeration of the right lung. Moderate opacity remains in the right mid and lower chest consistent with atelectasis/airspace disease. Small right pleural fluid is present.There is improved aeration of the left lower lung field, with mild residual atelectasis/airspace disease. Pleural fluid may be associated. No pneumothorax is visible. The cardiomediastinal silhouette is normal. The visible bony thorax is intact. > Dictated by Guilherme Foy MD (operations vice president). I, Rachel Phillips MD have personally reviewed and interpreted this examination/study. > Interpreting Provider: Rachel Phillips MD on 07/06/2022 10:59 AM Ramya Witt MD DIAGNOSTIC IMAG ING ORDERABLES * (ABNORMAL) BASIC METABOLIC PANEL (CALCIUM TOTAL) (07/05/2022 8:39 PM AUTOMOTIVE PAINT TECHNICIAN) BUN 37(H) 7 - 26 mg/dL 07/05/2022 9:21 PM [facility] Creatinine 3.08(H) 0.71 - 1.16 mg/dL 07/05/2022 9:21 PM [facility] Sodium 151(H) 136 - 145 mmol/L 07/05/2022 9:21 PM [facility] Potassium 3.5 3.5 - 4.5 mmol/L 07/05/2022 9:21 PM [facility] Chloride 113(H) 98 - 107 mmol/L 07/05/2022 9:21 PM [facility] CO2 26 22 - 29 mmol/L 07/05/2022 9:21 PM [facility] Glucose 109 70 - 115 mg/dL 07/05/2022 9:21 PM [facility] Calcium 9.1 8.4 - 10.2 mg/dL 07/05/2022 9:21 PM [facility] Anion Gap 16 8 - 18 07/05/2022 9:21 PM [facility] BUN/Creatinine Ratio 12 7 - 23 07/05/2022 9:21 PM [facility] Osmolality Calculated 321(H) 270 - 300 mOsm/kg 07/05/2022 9:21 PM [facility] eGFR by CKD-EPI 22(L) >=90 mL/min/1.7 3 m2 07/05/2022 9:21 PM [facility] Blood BLOOD SPECIMEN / Unknown Venipuncture / Unknown 07/05/2022 8:39 PM AUTOMOTIVE PAINT TECHNICIAN 07/05/2022 8:51 PM AUTOMOTIVE PAINT TECHNICIAN Ramya Witt MD LAB - CHEMISTRY ORDERABLES [facility] [address] [place] [address], [facility] [phone] * XR CHEST 1VW PORTABLE (07/05/2022 5:23 PM AUTOMOTIVE PAINT TECHNICIAN) Anatomical Region Laterality Modality Chest Radiographic Cynthia ging 07/06/2022 8:24 AM AUTOMOTIVE PAINT TECHNICIAN Narrative 07/06/2022 10:38 AM AUTOMOTIVE PAINT TECHNICIAN EXAMINATION: XR CHEST 1VW PORTABLE HISTORY: J98.11: Atelectasis, right COMPARISON: Chest x-ray dated 07/05/2022 at 9:21 AM FINDINGS/IMPRESSION: There is progressive loss of aeration of the right lung, now completely opacified, consistent with complete atelectasis. Rule out central airway obstruction with mucous plug. Pleural fluid may be associated. There is shift of the heart and mediastinum to the right, unchanged. Moderate opacity in the left lower chest is consistent with atelectasis/airspace disease and pleural fluid, unchanged. Cardiomediastinal contours are obscured on the right. No pneumothorax. > Dictated by Arthur Hawk MD (operations vice president). IRachel MD have personally reviewed and interpreted this examination/study. > Interpreting Provider: Rachel Phillips MD on 07/06/2022 10:38 AM Procedure Note Rachel Phillips MD - 07/06/2022 EXAMINATION: XR CHEST 1VW PORTABLE HISTORY: J98.11: Atelectasis, right COMPARISON: Chest x-ray dated 07/05/2022 at 9:21 AM FINDINGS/IMPRESSION: There is progressive loss of aeration of the right lung, now completely opacified, consistent with complete atelectasis. Rule out central airway obstruction with mucous plug. Pleural fluid may be associated. There is shift of the heart and mediastinum to the right, unchanged. Moderate opacity in the left lower chest is consistent with atelectasis/airspace disease and pleural fluid, unchanged. Cardiomediastinal contours are obscured on the right. No pneumothorax. > Dictated by Arthur Hawk MD (operations vice president). IRachel MD have personally reviewed and interpreted this examination/study. > Interpreting Provider: Rachel Phillips MD on 07/06/2022 10:38 AM Ramya Witt MD DIAGNOSTIC IMAG ING ORDERABLES * XR CHEST 1VW PORTABLE (07/05/2022 9:41 AM AUTOMOTIVE PAINT TECHNICIAN) Anatomical Region Laterality Modality Chest Radiographic Cynthia ging 07/05/2022 9:47 AM AUTOMOTIVE PAINT TECHNICIAN Narrative 07/05/2022 10:56 PM AUTOMOTIVE PAINT TECHNICIAN EXAMINATION: XR CHEST 1VW PORTABLE HISTORY: J96.01: Acute respiratory failure with hypoxia (CMS/HCC) COMPARISON: Chest x-ray dated 07/04/2022 FINDINGS/IMPRESSION: Collapse of right lung with mediastinal shift towards the right. Small pleural effusion on the left is possible. This likely is due to mucous plugging ??The cardiomediastinal silhouette is normal. > Dictated by Guilherme Foy MD (operations vice president). John Thomason MD have personally reviewed and interpreted this examination/study. > Interpreting Provider: John Graham MD on 07/05/2022 10:56 PM Procedure Note John Graham MD - 07/05/2022 EXAMINATION: XR CHEST 1VW PORTABLE HISTORY: J96.01: Acute respiratory failure with hypoxia (CMS/HCC) COMPARISON: Chest x-ray dated 07/04/2022 FINDINGS/IMPRESSION: Collapse of right lung with mediastinal shift towards the right. Small pleural effusion on the left is possible. This likely is due to mucous plugging The cardiomediastinal silhouette is normal. > Dictated by Guilherme Foy MD (operations vice president). I, John Graham MD have personally reviewed and interpreted this examination/study. > Interpreting Provider: John Graham MD on 07/05/2022 10:56 PM Ramya Witt MD DIAGNOSTIC IMAG ING ORDERABLES * PHOSPHORUS BLOOD (07/05/2022 2:26 AM AUTOMOTIVE PAINT TECHNICIAN) Phosphorus 5.0 2.8 - 5.1 mg/dL 07/05/2022 3:03 AM AUTOMOTIVE PAINT TECHNICIAN [facility] Blood BLOOD SPECIMEN / Unknown Venipuncture / Unknown 07/05/2022 2:26 AM AUTOMOTIVE PAINT TECHNICIAN 07/05/2022 2:33 AM AUTOMOTIVE PAINT TECHNICIAN Randy Diaz MD LAB - CHEMISTRY [facility] MEDER[facility] [address] [address], [facility] [phone] * MAGNESIUM BLOOD (07/05/2022 2:26 AM AUTOMOTIVE PAINT TECHNICIAN) Pathologist [facility] Magnesium 2.6 1.6 - 2.6 mg/dL 07/05/2022 3:03 AM AUTOMOTIVE PAINT TECHNICIAN [facility] Blood BLOOD SPECIMEN / Unknown Venipuncture / Unknown 07/05/2022 2:26 AM AUTOMOTIVE PAINT TECHNICIAN 07/05/2022 2:33 AM AUTOMOTIVE PAINT TECHNICIAN Randy Diaz MD LAB - CHEMISTRY [facility]SH[facility] MEDEROS [address] [address], [facility] [phone] * (ABNORMAL) CBC W AUTO DIFFERENTIAL (07/05/2022 2:26 AM AUTOMOTIVE PAINT TECHNICIAN) WBC 5.4 3.5 - 10.5 10? 3 /uL 07/05/2022 2:58 AM [facility] RBC 2.88(L) 4.30 - 5.70 10? 6 /uL 07/05/2022 2:58 AM [facility] Hemoglobin 8.9(L) 12.0 - 17.6 g/dL 07/05/2022 2:58 AM [facility] Hematocrit 27.3(L) 35.2 - 51.7 % 07/05/2022 2:58 AM [facility] MCV 94.8 80.7 - 98.3 fL 07/05/2022 2:58 AM [facility] MCH 30.9 26.7 - 34.0 pg 07/05/2022 2:58 AM [facility] MCHC 32.6 30.8 - 35.9 g/dL 07/05/2022 2:58 AM [facility] RDW-SD 47.2 36.0 - 50.0 fL 07/05/2022 2:58 AM [facility] RDW-CV 13.6 11.2 - 14.8 % 07/05/2022 2:58 AM [facility] Platelet Count 143(L) 150 - 400 10? 3 /uL 07/05/2022 2:58 AM [facility] MPV 12.2 9.4 - 12.9 fL 07/05/2022 2:58 AM [facility] Immature Platelet Fraction 5.3 1.1 - 6.2 % 07/05/2022 2:58 AM [facility] nRBC Absolute 0.00 0 10? 3 /uL 07/05/2022 2:58 AM [facility] nRBC Auto 0.0 0 /100 WBC 07/05/2022 2:58 AM [facility] Neutrophils % 56.9 35.0 - 70.0 % 07/05/2022 2:58 AM [facility] Lymphocytes % 23.0 20.0 - 43.0 % 07/05/2022 2:58 AM [facility] Monocytes % 15.3(H) 5.0 - 13.0 % 07/05/2022 2:58 AM [facility] Eosinophils % 4.2 0.0 - 6.0 % 07/05/2022 2:58 AM [facility] Basophil % 0.2 0.0 - 2.0 % 07/05/2022 2:58 AM [facility] Neutrophils Absolute 3.10 1.60 - 7.00 10? 3 /uL 07/05/2022 2:58 AM [facility] Lymphocyte Absolute 1.25 1.10 - 3.90 10? 3 /uL 07/05/2022 2:58 AM [facility] Monocytes Absolute 0.83 0.26 - 1.07 10? 3 /uL 07/05/2022 2:58 AM [facility] Eosinophils Absolute 0.23 0.00 - 0.47 10? 3 /uL 07/05/2022 2:58 AM [facility] Basophils Absolute 0.01 0.00 - 0.08 10? 3 /uL 07/05/2022 2:58 AM [facility] Immature Granulocytes % 0.4 0.0 - 1.0 % 07/05/2022 2:58 AM [facility] Immature Granulocytes Absolute 0.02 07/05/2022 2:58 AM [facility] Blood BLOOD SPECIMEN / Unknown Venipuncture / Unknown 07/05/2022 2:26 AM AUTOMOTIVE PAINT TECHNICIAN 07/05/2022 2:[address] [facility] Artur Mcgraw MD LAB - HEMATOLOGY OR DERABLES Performing Organization Address [facility]/State/[facility] Co de Phone Number [facility] [address] [place] [address], [facility] [phone] * (ABNORMAL) BASIC METABOLIC PANEL (CALCIUM TOTAL) (07/05/2022 2:[address] [facility]) BUN 40(H) 7 - 26 mg/dL 07/05/2022 3:03 AM [facility] Creatinine 3.43(H) 0.71 - 1.16 mg/dL 07/05/2022 3:03 AM [facility] Sodium 151(H) 136 - 145 mmol/L 07/05/2022 3:03 AM [facility] Potassium 4.1 3.5 - 4.5 mmol/L 07/05/2022 3:03 AM [facility] Chloride 115(H) 98 - 107 mmol/L 07/05/2022 3:03 AM [facility] CO2 25 22 - 29 mmol/L 07/05/2022 3:03 AM [facility] Glucose 83 70 - 115 mg/dL 07/05/2022 3:03 AM [facility] Calcium 9.0 8.4 - 10.2 mg/dL 07/05/2022 3:03 AM [facility] Anion Gap 15 8 - 18 07/05/2022 3:03 AM [facility] BUN/Creatinine Ratio 12 7 - 23 07/05/2022 3:03 AM [facility] Osmolality Calculated 321(H) 270 - 300 mOsm/kg 07/05/2022 3:03 AM [facility] eGFR by CKD-EPI 20(L) >=90 mL/min/1.7 3 m2 07/05/2022 3:03 AM [facility] Blood BLOOD SPECIMEN / Unknown Venipuncture / Unknown 07/05/2022 2:26 AM AUTOMOTIVE PAINT TECHNICIAN 07/05/2022 2:33 AM AUTOMOTIVE PAINT TECHNICIAN Artur Mcgraw MD LAB - CHEMISTRY ORD ERABLES [facility] [address] [place] [address], [facility] [phone] * XR CHEST 1VW PORTABLE (07/04/2022 1:12 PM AUTOMOTIVE PAINT TECHNICIAN) Anatomical Region Laterality Modality Chest Radiographic Cynthia ging 07/04/2022 2:01 PM AUTOMOTIVE PAINT TECHNICIAN Narrative 07/04/2022 4:34 PM AUTOMOTIVE PAINT TECHNICIAN PROCEDURE: ??XR CHEST 1VW PORTABLE, DATE/TIME OF EXAM: ??07/04/2022 1:12 PM, LOCATION ??[facility] INDICATION: T17.908S: Aspiration into airway, sequela ADDITIONAL CLINICAL INFORMATION: Ordering Provider Reason For Exam: ??post bronchoscopy COMPARISON: Multiple prior chest x-rays, most recently chest x-ray 07/04/2022 FINDINGS/IMPRESSION: Significant improvement of the opacification of the right lung with residual hazy opacities in the right lung base. Bibasilar right greater than left atelectasis. Small right pleural fluid. No pneumothorax The cardiomediastinal silhouette is obscured. Report dictated by Usman Arce MD, (operations vice president). Eron Thomason have personally reviewed and interpreted this examination/study. > Interpreting Provider: Eron Payton on 07/04/2022 4:34 PM Procedure Note Eron Payton MD - 07/04/2022 PROCEDURE: XR CHEST 1VW PORTABLE, DATE/TIME OF EXAM: 07/04/2022 1:12 PM, LOCATION [facility] INDICATION: T17.908S: Aspiration into airway, sequela ADDITIONAL CLINICAL INFORMATION: Ordering Provider Reason For Exam: post bronchoscopy COMPARISON: Multiple prior chest x-rays, most recently chest x-ray 07/04/2022 FINDINGS/IMPRESSION: Significant improvement of the opacification of the right lung with residual hazy opacities in the right lung base. Bibasilar right greater than left atelectasis. Small right pleural fluid. No pneumothorax The cardiomediastinalsilhouette is obscured. Report dictated by Usman Arce MD, (operations vice president). Eron Thomason have personally reviewed and interpreted this examination/study. > Interpreting Provider: Eron Payton on 07/04/2022 4:34 PM Randy Diaz MD DIAGNOSTIC IMAGING O RDERABLES * XR CHEST 1VW PORTABLE (07/04/2022 10:27 AM AUTOMOTIVE PAINT TECHNICIAN) Anatomical Region Laterality Modality Chest Radiographic Cynthia ging 07/04/2022 1:11 PM AUTOMOTIVE PAINT TECHNICIAN Narrative 07/04/2022 4:18 PM AUTOMOTIVE PAINT TECHNICIAN PROCEDURE: ??XR CHEST 1VW PORTABLE, DATE/TIME OF EXAM: ??07/04/2022 10:27 AM, LOCATION ??[facility] INDICATION: J69.0: Aspiration pneumonitis (CMS/HCC) ADDITIONAL CLINICAL INFORMATION: Ordering Provider Reason For Exam: ??Right mucus plugging COMPARISON: Multiple prior chest x-rays, most recently chest x-ray dated 07/03/2022 FINDINGS/IMPRESSION: Near complete opacification of the right lung with tracheal shift towards the right, unchanged. There is new obscuration of the left hemidiaphragm, could be secondary to left lower lobe collapse along with small left pleural effusion. No pneumothorax identified. The cardiomediastinal silhouette is obscured. Report dictated by Usman Arce MD, (operations vice president). Eron Thomason have personally reviewed and interpreted this examination/study. > Interpreting Provider: Eron Payton on 07/04/2022 4:18 PM Procedure Note Eron Payton MD - 07/04/2022 PROCEDURE: XR CHEST 1VW PORTABLE, DATE/TIME OF EXAM: 07/04/2022 10:27AM, LOCATION [facility] INDICATION: J69.0: Aspiration pneumonitis (CMS/HCC) ADDITIONAL CLINICAL INFORMATION: Ordering Provider Reason For Exam: Right mucus plugging COMPARISON: Multiple prior chest x-rays, most recently chest x-ray dated 07/03/2022 FINDINGS/IMPRESSION: Near complete opacification of the right lung with tracheal shifttowards the right, unchanged. There is new obscuration of the lefthemidiaphragm, could be secondary to left lower lobe collapse along with small left pleural effusion. No pneumothorax identified. The cardiomediastinal silhouette is obscured. Report dictated by Usman Arce MD, (operations vice president). Eron Thomason have personally reviewed and interpreted this examination/study. > Interpreting Provider: Eron Payton on 07/04/2022 4:18 PM Randy Diaz MD DIAGNOSTIC IMAGING O RDERABLES * (ABNORMAL) PHOSPHORUS BLOOD (07/04/2022 1:45 AM AUTOMOTIVE PAINT TECHNICIAN) Phosphorus 5.9(H) 2.8 - 5.1 mg/dL 07/04/2022 2:20 AM AUTOMOTIVE PAINT TECHNICIAN [facility] Blood BLOOD SPECIMEN / Unknown Venipuncture / Unknown 07/04/2022 1:45 AM AUTOMOTIVE PAINT TECHNICIAN 07/04/2022 1:52 AM AUTOMOTIVE PAINT TECHNICIAN Randy Diaz MD LAB - CHEMISTRY MARSHAL MEDEROS [facility] [address] [place] [address], [facility] [phone] * MAGNESIUM BLOOD (07/04/2022 1:45 AM AUTOMOTIVE PAINT TECHNICIAN) [facility] Magnesium 2.4 1.6 - 2.6 mg/dL 07/04/2022 2:20 AM [facility] Blood BLOOD SPECIMEN / Unknown Venipuncture / Unknown 07/04/2022 1:45 AM AUTOMOTIVE PAINT TECHNICIAN 07/04/2022 1:52 AM AUTOMOTIVE PAINT TECHNICIAN Randy Diaz MD LAB - CHEMISTRY ORDByron MEDEROS Performing Organization Address [facility]/ZIP Co de Phone Number [address] [address], [facility] [phone] * (ABNORMAL) CBC W AUTO DIFFERENTIAL (07/04/2022 1:45 AM AUTOMOTIVE PAINT TECHNICIAN) [facility] WBC 5.9 3.5 - 10.5 10? 3 /uL 07/04/2022 1:57 AM [facility] RBC 3.28(L) 4.30 - 5.70 10? 6 /uL 07/04/2022 1:57 AM [facility] Hemoglobin 10.1(L) 12.0 - 17.6 g/dL 07/04/2022 1:57 AM [facility] Hematocrit 30.9(L) 35.2 - 51.7 % 07/04/2022 1:57 AM [facility] MCV 94.2 80.7 - 98.3 fL 07/04/2022 1:57 AM [facility] MCH 30.8 26.7 - 34.0 pg 07/04/2022 1:57 AM [facility] MCHC 32.7 30.8 - 35.9 g/dL 07/04/2022 1:57 AM [facility] RDW-SD 45.2 36.0 - 50.0 fL 07/04/2022 1:57 AM [facility] RDW-CV 13.2 11.2 - 14.8 % 07/04/2022 1:57 AM [facility] Platelet Count 141(L) 150 - 400 10? 3 /uL 07/04/2022 1:57 AM [facility] MPV 12.1 9.4 - 12.9 fL 07/04/2022 1:57 AM [facility] nRBC Absolute 0.00 0 10? 3 /uL 07/04/2022 1:57 AM [facility] nRBC Auto 0.0 0 /100 WBC 07/04/2022 1:57 AM [facility] Neutrophils % 64.0 35.0 - 70.0 % 07/04/2022 1:57 AM [facility] Lymphocytes % 17.7(L) 20.0 - 43.0 % 07/04/2022 1:57 AM [facility] Monocytes % 14.9(H) 5.0 - 13.0 % 07/04/2022 1:57 AM [facility] Eosinophils % 2.9 0.0 - 6.0 % 07/04/2022 1:57 AM [facility] Basophil % 0.2 0.0 - 2.0 % 07/04/2022 1:57 AM [facility] Neutrophils Absolute 3.77 1.60 - 7.00 10? 3 /uL 07/04/2022 1:57 AM [facility] Lymphocyte Absolute 1.04(L) 1.10 - 3.90 10? 3 /uL 07/04/2022 1:57 AM [facility] Monocytes Absolute 0.88 0.26 - 1.07 10? 3 /uL 07/04/2022 1:57 AM [facility] Eosinophils Absolute 0.17 0.00 - 0.47 10? 3 /uL 07/04/2022 1:57 AM [facility] Basophils Absolute 0.01 0.00 - 0.08 10? 3 /uL 07/04/2022 1:57 AM [facility] Immature Granulocytes % 0.3 0.0 - 1.0 % 07/04/2022 1:57 AM [facility] Immature Granulocytes Absolute 0.02 07/04/2022 1:57 AM [facility] Blood BLOOD SPECIMEN / Unknown Venipuncture / Unknown 07/04/2022 1:45 AM AUTOMOTIVE PAINT TECHNICIAN 07/04/2022 1:51 AM AUTOMOTIVE PAINT TECHNICIAN Artur Mcgraw MD LAB - HEMATOLOGY OR DERABLES [facility] [address] [place] [address], [facility] [phone] * (ABNORMAL) BASIC METABOLIC PANEL (CALCIUM TOTAL) (07/04/2022 1:45 AM AUTOMOTIVE PAINT TECHNICIAN) BUN 38(H) 7 - 26 mg/dL 07/04/2022 2:20 AM [facility] Creatinine 3.55(H) 0.71 - 1.16 mg/dL 07/04/2022 2:20 AM [facility] Sodium 148(H) 136 - 145 mmol/L 07/04/2022 2:20 AM [facility] Potassium 4.6(H) 3.5 - 4.5 mmol/L 07/04/2022 2:20 AM [facility] Chloride 112(H) 98 - 107 mmol/L 07/04/2022 2:20 AM [facility] CO2 23 22 - 29 mmol/L 07/04/2022 2:20 AM [facility] Glucose 90 70 - 115 mg/dL 07/04/2022 2:20 AM [facility] Calcium 9.4 8.4 - 10.2 mg/dL 07/04/2022 2:20 AM [facility] Anion Gap 18 8 - 18 07/04/2022 2:20 AM [facility] BUN/Creatinine Ratio 11 7 - 23 07/04/2022 2:20 AM [facility] Osmolality Calculated 315(H) 270 - 300 mOsm/kg 07/04/2022 2:20 AM [facility] eGFR by CKD-EPI 19(L) >=90 mL/min/1.7 3 m2 07/04/2022 2:20 AM [facility] Blood BLOOD SPECIMEN / Unknown Venipuncture / Unknown 07/04/2022 1:45 AM AUTOMOTIVE PAINT TECHNICIAN 07/04/2022 1:52 AM AUTOMOTIVE PAINT TECHNICIAN Artur Mcgraw MD LAB - CHEMISTRY ORD ERABLES [facility] [address] [place] [address], [facility] [phone] * CULTURE URINE (07/04/2022 1:45 AM AUTOMOTIVE PAINT TECHNICIAN) Culture Urine 10,000-50,000 CFU/mL urogenital heidi JELLY 07/05/2022 8:22 AM AUTOMOTIVE PAINT TECHNICIAN [facility] MICROBIOLOGY Urine URINE SPECIMEN OBTAINED BY CLEAN CATCH PROCEDURE / Unknown Collection / Unknown 07/04/2022 1:45 AM AUTOMOTIVE PAINT TECHNICIAN 07/04/2022 1:50 AM AUTOMOTIVE PAINT TECHNICIAN Randy Diaz MD LAB - MICROBIOLOGY O RDERABLES [facility] MICROBIOLOGY [address] [place] [address], [facility] [phone] * (ABNORMAL) URINALYSIS REFLEX TO MICROSCOPIC NO CULTURE (07/04/2022 1:45 AM AUTOMOTIVE PAINT TECHNICIAN) Color UA Yellow Straw, Yellow 07/04/2022 1:57 AM [facility] Clarity UA Clear Clear 07/04/2022 1:57 AM [facility] Specific [place] UA 1.010 1.005 - 1.030 07/04/2022 1:57 AM [facility] pH UA 6.0 5.0 - 8.0 pH 07/04/2022 1:57 AM [facility] Protein UA Negative Negative 07/04/2022 1:57 AM [facility] Glucose UA Negative Negative 07/04/2022 1:57 AM [facility] Ketone UA Negative Negative 07/04/2022 1:57 AM [facility] Bilirubin UA Negative Negative 07/04/2022 1:57 AM [facility] Blood UA Negative Negative 07/04/2022 1:57 AM [facility] Nitrite UA Negative Negative 07/04/2022 1:57 AM [facility] Leukocyte Esterase 1+(A) Negative 07/04/2022 1:57 AM [facility] Urobilinogen UA Negative Negative mg/dL 07/04/2022 1:57 AM [facility] RBC UA 3-5 None Seen, 0-2, 3-5 /HPF 07/04/2022 1:57 AM [facility] WBC UA 6-10(A) None Seen, 0-5 /HPF 07/04/2022 1:57 AM [facility] Bacteria UA Trace(A) None /HPF 07/04/2022 1:57 AM [facility] Yeast Budding UA Few(A) None /HPF 07/04/19 1:57 AM [facility] Squamous Epithelial Cells UA 0-2 None Seen, 0-2, 3-5 /HPF 07/04/2022 1:57 AM AUTOMOTIVE PAINT TECHNICIAN [facility] Mucus UA 1+ /LPF 07/04/2022 1:57 AM [facility] Urine URINE SPECIMEN OBTAINED BY CLEAN CATCH PROCEDURE / Unknown Collection / Unknown 07/04/2022 1:45 AM AUTOMOTIVE PAINT TECHNICIAN 07/04/2022 1:49 AM AUTOMOTIVE PAINT TECHNICIAN Narrative [facility] - 07/04/2022 1:57 AM AUTOMOTIVE PAINT TECHNICIAN Randy Diaz MD LAB - URINALYSIS ORD ERABLES Performing Organization Address City/[facility]/ZIP Co de Phone Number [address] [address], [facility] [phone] * TSH REFLEX FREE T4 (07/04/2022 1:45 AM AUTOMOTIVE PAINT TECHNICIAN) Pathologist [facility] TSH 1.955 0.350 - 4.940 uIU/mL 07/04/2022 2:37 AM [facility] Blood BLOOD SPECIMEN / Unknown Venipuncture / Unknown 07/04/2022 1:45 AM AUTOMOTIVE PAINT TECHNICIAN 07/04/2022 1:52 AM AUTOMOTIVE PAINT TECHNICIAN Randy Diaz MD LAB - CHEMISTRY ORDE RABLES [address] [address], [facility] [phone] * VANCOMYCIN LEVEL RANDOM (07/04/2022 1:45 AM AUTOMOTIVE PAINT TECHNICIAN) Vancomycin Random 22.0 Therapeutic Ranges not established for random specimens ug/mL 07/04/2022 2:20 AM [facility] Blood BLOOD SPECIMEN / Unknown Venipuncture / Unknown 07/04/2022 1:45 AM AUTOMOTIVE PAINT TECHNICIAN 07/04/2022 1:52 AM [facility] - 07/04/2022 2:20 AM AUTOMOTIVE PAINT TECHNICIAN See institution protocol. Artur Mcgraw MD LAB - CHEMISTRY ORD ERABLES [facility] [address] [place] [address], [facility] [phone] * (ABNORMAL) BLOOD GASES ART + COOX PANEL (07/03/2022 5:39 PM AUTOMOTIVE PAINT TECHNICIAN) pH Arterial 7.39 7.35 - 7.45 pH 07/03/2022 5:46 PM [facility] pO2 Arterial 133(H) 80 - 100 mmHg 07/03/2022 5:46 PM [facility] pCO2 Arterial 44 35 - 45 mmHg 5:46 PM [facility] HCO3 Arterial 27 20 - 30 mmol/l 07/03/2022 5:46 PM [facility] BE Arterial 1.3 -2.0 - 2.0 mmol/L 07/03/2022 5:46 PM [facility] Oxyhemoglobin Arterial 97.5 % 07/03/2022 5:46 PM [facility] Dexoyhemoglobin (HHB) % 0.4 % 07/03/2022 5:46 PM [facility] Methemoglobin 1.2 0.0 - 2.0 % 07/03/2022 5:46 PM [facility] Carboxyhemoglobin 1.0 0.0 - 2.0 % 2022 5:46 PM [facility] O2 Content Arterial 15.2 Interpret within clinical context ml/dL 07/03/2022 5:46 PM [facility] Hemoglobin by COOX 10.9(L) 12.0 - 17.6 g/dL 07/03/2022 5:46 PM [facility] O2 Saturation Arterial 100 90 - 100 % 07/03/2022 5:46 PM AUTOMOTIVE PAINT TECHNICIAN [facility] FI O2 Arterial 90.0 % 07/03/2022 5:46 PM AUTOMOTIVE PAINT TECHNICIAN [facility] Blood, arterial ARTERIAL BLOOD SPECIMEN / Unknown Arterial Puncture / Unknown 07/03/2022 5:39 PM AUTOMOTIVE PAINT TECHNICIAN 07/03/2022 5:44 PM AUTOMOTIVE PAINT TECHNICIAN Narrative [facility] - 07/03/2022 5:46 PM AUTOMOTIVE PAINT TECHNICIAN Carboxyhemoglobin Normal Concentration: Non-smokers: 0-2%; Smokers: 0-9%; Toxic: >20% Artur Mcgraw MD LAB - BLOOD GASES O RDERABLES [facility] [address] [place] [address], [facility] [phone] * XR CHEST 1VW PORTABLE (07/03/2022 4:03 PM AUTOMOTIVE PAINT TECHNICIAN) Anatomical Region Laterality Modality Chest Radiographic Cynthia ging 07/03/2022 4:20 PM AUTOMOTIVE PAINT TECHNICIAN Narrative 07/03/2022 4:57 PM AUTOMOTIVE PAINT TECHNICIAN PROCEDURE: ??XR CHEST 1VW PORTABLE, DATE/TIME OF EXAM: ??07/03/2022 4:04 PM, LOCATION ??[facility] INDICATION: R91.8: Pulmonary infiltrate J96.21: Acute on chronic respiratory failure with hypoxia (CMS/HCC) ADDITIONAL CLINICAL INFORMATION: Ordering Provider Reason For Exam: ??hypoxia COMPARISON: Chest x-ray 07/03/2022 FINDINGS/IMPRESSION: Near complete opacification of the right lung with tracheal shift towards the right, unchanged. Left lung is clear. No pneumothorax identified. The cardiomediastinal silhouette is obscured. Report dictated by Usman Arce MD, (operations vice president). IEron have personally reviewed and interpreted this examination/study. > Interpreting Provider: Eron Payton on 07/03/2022 4:57 PM Procedure Note Eron Payton MD - 07/03/2022 PROCEDURE: XR CHEST 1VW PORTABLE, DATE/TIME OF EXAM: 07/03/2022 4:04 PM, LOCATION [facility] INDICATION: R91.8: Pulmonary infiltrate J96.21: Acute on chronic respiratory failure with hypoxia (CMS/HCC) ADDITIONAL CLINICAL INFORMATION: Ordering Provider Reason For Exam: hypoxia COMPARISON: Chest x-ray 07/03/2022 FINDINGS/IMPRESSION: Near complete opacification of the right lung with tracheal shifttowards the right, unchanged. Left lung is clear. No pneumothorax identified.The cardiomediastinal silhouette is obscured. Report dictated by Usman Arce MD, (operations vice president). Eron Thomason have personally reviewed and interpreted this examination/study. > Interpreting Provider: Eron Payton on 07/03/2022 4:57 PM Artur Mcgraw MD DIAGNOSTIC IMAGING ORDERABLES * XR CHEST 1VW PORTABLE (07/03/2022 10:03 AM AUTOMOTIVE PAINT TECHNICIAN) Anatomical Region Laterality Modality Chest Radiographic Cynthia ging 07/03/2022 10:1 0 AM AUTOMOTIVE PAINT TECHNICIAN Narrative 07/03/2022 12:19 PM AUTOMOTIVE PAINT TECHNICIAN PROCEDURE: ??XR CHEST 1VW PORTABLE, DATE/TIME OF EXAM: ??07/03/2022 10:04 AM, LOCATION ??[facility] INDICATION: T17.908S: Aspiration into airway, sequela ADDITIONAL CLINICAL INFORMATION: Ordering Provider Reason For Exam: ??aspiration risk COMPARISON: Chest x-ray 06/27/2022, chest x-ray 07/02/[address] chest abdomen pelvis 06/28/2022 FINDINGS/IMPRESSION: Unchanged complete opacification of the right hemithorax with tracheal deviation towards the right. This could be secondary to mucous plugging/aspiration and a component of small pleural effusion. Left lung is clear. No left-sided pleural effusion or pneumothorax. ??The cardiomediastinal silhouette is obscured. Report dictated by Usman Arce MD, (operations vice president). These findings were discussed with patient's care provider, Dr. Mcgraw, by on 07/03/2022 10:12 AM with read back verification. Eron Thomason have personally reviewed and interpreted this examination/study. > Interpreting Provider: Eron Payton on 07/03/2022 12:19 PM Procedure Note Eron Payton MD - 07/03/2022 PROCEDURE: XR CHEST 1VW PORTABLE, DATE/TIME OF EXAM: 07/03/2022 10:04AM, LOCATION [facility] INDICATION: T17.908S: Aspiration into airway, sequela ADDITIONAL CLINICAL INFORMATION: Ordering Provider Reason For Exam: aspiration risk COMPARISON: Chest x-ray 06/27/2022, chest x-ray 07/02/[address] chest abdomen pelvis 06/28/2022 FINDINGS/IMPRESSION: Unchanged complete opacification of the right hemithorax with tracheal deviation towards the right. This could be secondary to mucous plugging/aspiration and a component of small pleural effusion. Left lungis clear. No left-sided pleural effusion or pneumothorax. The cardiomediastinal silhouette is obscured. Report dictated by Usman Arce MD, (operations vice president). These findings were discussed with patient's care provider, Dr. Mcgraw, by on 07/03/2022 10:12 AM with read back verification. I, Eron Payton have personally reviewed and interpreted this examination/study. > Interpreting Provider: Eron Payton on 07/03/2022 12:19 PM Artur Mcgraw MD DIAGNOSTIC IMAGING ORDERABLES * (ABNORMAL) CBC W AUTO DIFFERENTIAL (07/03/2022 4:[address] [facility]) WBC 6.9 3.5 - 10.5 10? 3 /uL 07/03/2022 4:29 AM [facility] RBC 3.10(L) 4.30 - 5.70 10? 6 /uL 07/03/2022 4:29 AM [facility] Hemoglobin 9.6(L) 12.0 - 17.6 g/dL 07/03/2022 4:29 AM [facility] Hematocrit 29.6(L) 35.2 - 51.7 % 07/03/2022 4:29 AM [facility] MCV 95.5 80.7 - 98.3 fL 07/03/2022 4:29 AM [facility] MCH 31.0 26.7 - 34.0 pg 07/03/2022 4:29 AM [facility] MCHC 32.4 30.8 - 35.9 g/dL 07/03/2022 4:29 AM [facility] RDW-SD 46.5 36.0 - 50.0 fL 07/03/2022 4:29 AM [facility] RDW-CV 13.5 11.2 - 14.8 % 07/03/2022 4:29 AM [facility] Platelet Count 120(L) 150 - 400 10? 3 /uL 07/03/2022 4:29 AM [facility] MPV 13.3(H) 9.4 - 12.9 fL 07/03/2022 4:29 AM [facility] Immature Platelet Fraction 8.6(H) 1.1 - 6.2 % 07/03/2022 4:29 AM [facility] nRBC Absolute 0.00 0 10? 3 /uL 07/03/2022 4:29 AM [facility] nRBC Auto 0.0 0 /100 WBC 07/03/2022 4:29 AM [facility] Neutrophils % 59.2 35.0 - 70.0 % 07/03/2022 4:29 AM [facility] Lymphocytes % 19.8(L) 20.0 - 43.0 % 07/03/2022 4:29 AM [facility] Monocytes % 17.3(H) 5.0 - 13.0 % 07/03/2022 4:29 AM [facility] Eosinophils % 3.3 0.0 - 6.0 % 07/03/2022 4:29 AM [facility] Basophil % 0.1 0.0 - 2.0 % 07/03/2022 4:29 AM [facility] Neutrophils Absolute 4.06 1.60 - 7.00 10? 3 /uL 07/03/2022 4:29 AM [facility] Lymphocyte Absolute 1.36 1.10 - 3.90 10? 3 /uL 07/03/2022 4:29 AM [facility] Monocytes Absolute 1.19(H) 0.26 - 1.07 10? 3 /uL 07/03/2022 4:29 AM [facility] Eosinophils Absolute 0.23 0.00 - 0.47 10? 3 /uL 07/03/2022 4:29 AM [facility] Basophils Absolute 0.01 0.00 - 0.08 10? 3 /uL 07/03/2022 4:29 AM [facility] Immature Granulocytes % 0.3 0.0 - 1.0 % 07/03/2022 4:29 AM [facility] Immature Granulocytes Absolute 0.02 07/03/2022 4:29 AM [facility] Blood BLOOD SPECIMEN / Unknown Venipuncture / Unknown 07/03/2022 4:05 AM AUTOMOTIVE PAINT TECHNICIAN 07/03/2022 4:18 AM AUTOMOTIVE PAINT TECHNICIAN Artur Mcgraw MD LAB - HEMATOLOGY OR DERABLES Performing Organization Address City/State/[facility] Co de Phone Number [facility] [address] [place] [address], [facility] [phone] * (ABNORMAL) BASIC METABOLIC PANEL (CALCIUM TOTAL) (07/03/2022 4:[address] [facility]) BUN 32(H) 7 - 26 mg/dL 07/03/2022 5:07 AM [facility] Creatinine 3.16(H) 0.71 - 1.16 mg/dL 07/03/2022 5:07 AM [facility] Sodium 144 136 - 145 mmol/L 07/03/2022 5:07 AM [facility] Potassium 4.7(H) 3.5 - 4.5 mmol/L 07/03/2022 5:07 AM [facility] Chloride 110(H) 98 - 107 mmol/L 07/03/2022 5:07 AM [facility] CO2 27 22 - 29 mmol/L 07/03/2022 5:07 AM [facility] Glucose 86 70 - 115 mg/dL 07/03/2022 5:07 AM [facility] Calcium 9.1 8.4 - 10.2 mg/dL 07/03/2022 5:07 AM [facility] Anion Gap 12 8 - 18 07/03/2022 5:07 AM [facility] BUN/Creatinine Ratio 10 7 - 23 07/03/2022 5:07 AM [facility] Osmolality Calculated 304(H) 270 - 300 mOsm/kg 07/03/2022 5:07 AM [facility] eGFR by CKD-EPI 22(L) >=90 mL/min/1.7 3 m2 07/03/2022 5:07 AM [facility] Blood BLOOD SPECIMEN / Unknown Venipuncture / Unknown 07/03/2022 4:05 AM AUTOMOTIVE PAINT TECHNICIAN 07/03/2022 4:18 AM AUTOMOTIVE PAINT TECHNICIAN Artur Mcgraw MD LAB - CHEMISTRY ORD ERABLES [address] [address], [place] [phone] * VANCOMYCIN LEVEL RANDOM (07/03/2022 4:05 AM AUTOMOTIVE PAINT TECHNICIAN) Vancomycin Random 26.1 Therapeutic Ranges not established for random specimens ug/mL 07/03/2022 4:49 AM AUTOMOTIVE PAINT TECHNICIAN [facility] Blood BLOOD SPECIMEN / Unknown Venipuncture / Unknown 07/03/2022 4:05 AM AUTOMOTIVE PAINT TECHNICIAN 07/03/2022 4:18 AM AUTOMOTIVE PAINT TECHNICIAN Narrative [facility] - 07/03/2022 4:49 AM AUTOMOTIVE PAINT TECHNICIAN See institution protocol. Artur Mcgraw MD LAB - CHEMISTRY ORD ERABLES Performing Organization Address City/[facility]/ZIP Co de Phone Number [address] [address], [place] [phone] * CREATININE URINE RANDOM (07/02/2022 11:37 AM AUTOMOTIVE PAINT TECHNICIAN) Creatinine Urine 26 Not Established mg/dL 07/02/2022 12:07 PM AUTOMOTIVE PAINT TECHNICIAN [facility] Urine URINE SPECIMEN OBTAINED BY CLEAN CATCH PROCEDURE / Unknown Collection / Unknown 07/02/2022 11:37 AM AUTOMOTIVE PAINT TECHNICIAN 07/02/2022 11:44 AM AUTOMOTIVE PAINT TECHNICIAN Artur Mcgraw MD LAB - URINE LETTERER RY ORDERABLES [address] [address], [place] [phone] * SODIUM URINE RANDOM (07/02/2022 11:37 AM AUTOMOTIVE PAINT TECHNICIAN) Sodium Urine 40 Not Established mmol/L 07/02/2022 12:07 PM [facility] Urine URINE SPECIMEN OBTAINED BY CLEAN CATCH PROCEDURE / Unknown Collection / Unknown 07/02/2022 11:37 AM AUTOMOTIVE PAINT TECHNICIAN 07/02/2022 11:44 AM AUTOMOTIVE PAINT TECHNICIAN Artur Mcgraw MD LAB - URINE LETTERER RY ORDERABLES [facility] [address] [place] [address], [facility] [phone] * (ABNORMAL) URINALYSIS W/MICROSCOPIC NO CULTURE (07/02/2022 11:37 AM AUTOMOTIVE PAINT TECHNICIAN) Color UA Yellow Straw, Yellow 07/02/2022 11:56 AM [facility] Clarity UA Clear Clear 07/02/2022 11:56 AM [facility] Specific [place] UA 1.006 1.005 - 1.030 07/02/2022 11:56 AM [facility] pH UA 7.0 5.0 - 8.0 pH 07/02/2022 11:56 AM [facility] Protein UA 1+(A) Negative 07/02/2022 11:56 AM [facility] Glucose UA Negative Negative 07/02/2022 11:56 AM [facility] Ketone UA Negative Negative 07/02/2022 11:56 AM [facility] Bilirubin UA Negative Negative 07/02/2022 11:56 AM [facility] Blood UA Negative Negative 07/02/2022 11:56 AM [facility] Nitrite UA Negative Negative 07/02/2022 11:56 AM [facility] Leukocyte Esterase 3+(A) Negative 07/02/2022 11:56 AM [facility] Urobilinogen UA Negative Negative mg/dL 07/02/2022 11:56 AM [facility] RBC UA 3-5 None Seen, 0-2, 3-5 /HPF 07/02/2022 11:56 AM [facility] WBC UA 6-10(A) None Seen, 0-5 /HPF 07/02/2022 11:56 AM AUTOMOTIVE PAINT TECHNICIAN [facility] Bacteria UA Trace(A) None /HPF 07/02/2022 11:56 AM [facility] Squamous Epithelial Cells UA 0-2 None Seen, 0-2, 3-5 /HPF 07/02/2022 11:56 AM [facility] Yeast Budding UA Few(A) None /HPF 07/02/19 11:56 AM [facility] Urine URINE SPECIMEN OBTAINED BY CLEAN CATCH PROCEDURE / Unknown Collection / Unknown 07/02/2022 11:37 AM AUTOMOTIVE PAINT TECHNICIAN 07/02/2022 11:44 AM AUTOMOTIVE PAINT TECHNICIAN Narrative [facility] - 07/02/2022 11:56 AM AUTOMOTIVE PAINT TECHNICIAN Artur Mcgraw MD LAB - URINALYSIS OR DERABLES [address] [address], [facility] [phone] * XR CHEST 1VW PORTABLE (07/02/2022 10:30 AM AUTOMOTIVE PAINT TECHNICIAN) Anatomical Region Laterality Modality Chest Radiographic Cynthia ging 07/02/2022 10:5 3 AM AUTOMOTIVE PAINT TECHNICIAN Narrative 07/02/2022 4:35 PM AUTOMOTIVE PAINT TECHNICIAN PROCEDURE: ??XR CHEST 1VW PORTABLE, DATE/TIME OF EXAM: ??07/02/2022 10:30 AM, LOCATION ??[facility] INDICATION: R13.12: Dysphagia, oropharyngeal phase ADDITIONAL CLINICAL INFORMATION: Ordering Provider Reason For Exam: ??increased gurgling with breathing; assesment for aspiration COMPARISON: 06/27/2022. FINDINGS/IMPRESSION: New complete opacification of the right hemithorax likely representing right lung collapse possibly due to aspiration versus mucous plugging. A pleural effusion may be contributing. There is resultant rightward shift of the heart and mediastinum. Left lung is clear. There is no left-sided pleural effusion or pneumothorax. The mediastinal contours and cardiac silhouette are partially obscured. Report dictated by Akbar Barillas MD, MD (operations vice president). I, Charles Hare MD have personally reviewed and interpreted this examination/study. > Interpreting Provider: Charles Hare MD on 07/02/2022 4:35 PM Procedure Note Charles Hare MD - 07/02/2022 PROCEDURE: XR CHEST 1VW PORTABLE, DATE/TIME OF EXAM: 07/02/2022 10:30AM, LOCATION [facility] INDICATION: R13.12: Dysphagia, oropharyngeal phase ADDITIONAL CLINICAL INFORMATION: Ordering Provider Reason For Exam: increased gurgling with breathing; assesment for aspiration COMPARISON: 06/27/2022. FINDINGS/IMPRESSION: New complete opacification of the right hemithorax likely representing right lung collapse possibly due to aspiration versus mucous plugging. A pleural effusion may be contributing. There is resultant rightward shiftof the heart and mediastinum. Left lung is clear. There is no left-sided pleural effusion or pneumothorax. The mediastinal contours and cardiac silhouette are partially obscured. Report dictated by Akbar Barillas MD, MD (operations vice president). I, Charles Hare MD have personally reviewed and interpreted this examination/study. > Interpreting Provider: Charles Hare MD on 07/02/2022 4:35 PM Artur Mcgraw MD DIAGNOSTIC IMAGING ORDERABLES * (ABNORMAL) CBC W AUTO DIFFERENTIAL (07/02/2022 5:31 AM AUTOMOTIVE PAINT TECHNICIAN) WBC 5.7 3.5 - 10.5 10? 3 /uL 07/02/2022 6:12 AM [facility] RBC 3.16(L) 4.30 - 5.70 10? 6 /uL 07/02/2022 6:12 AM [facility] Hemoglobin 9.8(L) 12.0 - 17.6 g/dL 07/02/2022 6:12 AM [facility] Hematocrit 30.2(L) 35.2 - 51.7 % 07/02/2022 6:12 AM [facility] MCV 95.6 80.7 - 98.3 fL 07/02/2022 6:12 AM [facility] MCH 31.0 26.7 - 34.0 pg 07/02/2022 6:12 AM [facility] MCHC 32.5 30.8 - 35.9 g/dL 07/02/2022 6:12 AM [facility] RDW-SD 45.5 36.0 - 50.0 fL 07/02/2022 6:12 AM [facility] RDW-CV 13.1 11.2 - 14.8 % 07/02/2022 6:12 AM [facility] Platelet Count 119(L) 150 - 400 10? 3 /uL 07/02/2022 6:12 AM [facility] MPV 12.8 9.4 - 12.9 fL 07/02/2022 6:12 AM [facility] nRBC Absolute 0.00 0 10? 3 /uL 07/02/2022 6:12 AM [facility] nRBC Auto 0.0 0 /100 WBC 07/02/2022 6:12 AM [facility] Neutrophils % 57.4 35.0 - 70.0 % 07/02/2022 6:12 AM [facility] Lymphocytes % 19.9(L) 20.0 - 43.0 % 07/02/2022 6:12 AM [facility] Monocytes % 17.8(H) 5.0 - 13.0 % 07/02/2022 6:12 AM [facility] [facility] Eosinophils % 4.4 0.0 - 6.0 % 07/02/2022 6:12 AM [facility] Basophil % 0.3 0.0 - 2.0 % 07/02/2022 6:12 AM [facility] Neutrophils Absolute 3.29 1.60 - 7.00 10? 3 /uL 07/02/2022 6:12 AM [facility] Lymphocyte Absolute 1.14 1.10 - 3.90 10? 3 /uL 07/02/2022 6:12 AM [facility] Monocytes Absolute 1.02 0.26 - 1.07 10? 3 /uL 07/02/2022 6:12 AM [facility] Eosinophils Absolute 0.25 0.00 - 0.47 10? 3 /uL 07/02/2022 6:12 AM [facility] Basophils Absolute 0.02 0.00 - 0.08 10? 3 /uL 07/02/2022 6:12 AM [facility] Immature Granulocytes % 0.2 0.0 - 1.0 % 07/02/2022 6:12 AM [facility] Immature Granulocytes Absolute 0.01 07/02/2022 6:12 AM [facility] Blood BLOOD SPECIMEN / Unknown Lab Venipuncture / Unknown 07/02/2022 5:31 AM AUTOMOTIVE PAINT TECHNICIAN 07/02/2022 6:02 AM AUTOMOTIVE PAINT TECHNICIAN Artur Mcgraw MD LAB - HEMATOLOGY OR DERABLES [facility] [address] [place] [address], [facility] [phone] * (ABNORMAL) BASIC METABOLIC PANEL (CALCIUM TOTAL) (07/02/2022 5:[address] [facility]) BUN 19 7 - 26 mg/dL 07/02/2022 6:39 AM [facility] Creatinine 1.99(H) 0.71 - 1.16 mg/dL 07/02/2022 6:39 AM [facility] Sodium 144 136 - 145 mmol/L 07/02/2022 6:39 AM [facility] Potassium 4.3 3.5 - 4.5 mmol/L 07/02/2022 6:39 AM [facility] Chloride 111(H) 98 - 107 mmol/L 07/02/2022 6:39 AM [facility] CO2 24 22 - 29 mmol/L 07/02/2022 6:39 AM [facility] Glucose 113 70 - 115 mg/dL 07/02/2022 6:39 AM [facility] Calcium 9.1 8.4 - 10.2 mg/dL 07/02/2022 6:39 AM [facility] Anion Gap 13 8 - 18 07/02/2022 6:39 AM [facility] BUN/Creatinine Ratio 10 7 - 23 07/02/2022 6:39 AM [facility] Osmolality Calculated 301(H) 270 - 300 mOsm/kg 07/02/2022 6:39 AM [facility] eGFR by CKD-EPI 37(L) >=90 mL/min/1.7 3 m2 07/02/2022 6:39 AM [facility] Blood BLOOD SPECIMEN / Unknown Lab Venipuncture / Unknown 07/02/2022 5:31 AM AUTOMOTIVE PAINT TECHNICIAN 07/02/2022 6:02 AM AUTOMOTIVE PAINT TECHNICIAN Artur Mcgraw MD LAB - CHEMISTRY ORD ERABLES Performing Organization Address City/[facility]/ZIP Co de Phone Number [facility] [address] [place] [address], [place] [phone] * VANCOMYCIN LEVEL RANDOM (07/02/2022 5:31 AM AUTOMOTIVE PAINT TECHNICIAN) Pathologist [facility] Vancomycin Random 32.1 Therapeutic Ranges not established for random specimens ug/mL 07/02/2022 6:31 AM AUTOMOTIVE PAINT TECHNICIAN [facility] Blood BLOOD SPECIMEN / Unknown Lab Venipuncture / Unknown 07/02/2022 5:31 AM AUTOMOTIVE PAINT TECHNICIAN 07/02/2022 6:02 AM AUTOMOTIVE PAINT TECHNICIAN Narrative [facility] - 07/02/2022 6:31 AM AUTOMOTIVE PAINT TECHNICIAN See institution protocol. Artur Mcgraw MD LAB - CHEMISTRY ORD ERABLES Performing Organization Address City/[facility]/ZIP Co de Phone Number [address] [address], [place] [phone] * (ABNORMAL) VANCOMYCIN LEVEL TROUGH (07/01/2022 4:34 PM AUTOMOTIVE PAINT TECHNICIAN) Pathologist [facility] Vancomycin Trough 22.7(H) 10.0 - 20.0 ug/mL 07/01/2022 5:35 PM AUTOMOTIVE PAINT TECHNICIAN [facility] Blood BLOOD SPECIMEN / Unknown Lab Venipuncture / Unknown 07/01/2022 4:34 PM AUTOMOTIVE PAINT TECHNICIAN 07/01/2022 5:11 PM AUTOMOTIVE PAINT TECHNICIAN Narrative [facility] - 07/01/2022 5:35 PM AUTOMOTIVE PAINT TECHNICIAN See institution protocol. Artur Mcgraw MD LAB - CHEMISTRY ORD ERABLES Performing Organization Address City/[facility]/ZIP Co de Phone Number [address] [address], [place] [phone] * (ABNORMAL) CBC W AUTO DIFFERENTIAL (07/01/2022 4:34 PM AUTOMOTIVE PAINT TECHNICIAN) WBC 7.0 3.5 - 10.5 10? 3 /uL 07/01/2022 5:33 PM [facility] RBC 3.06(L) 4.30 - 5.70 10? 6 /uL 07/01/2022 5:33 PM [facility] Hemoglobin 9.4(L) 12.0 - 17.6 g/dL 07/01/2022 5:33 PM [facility] Hematocrit 28.9(L) 35.2 - 51.7 % 07/01/2022 5:33 PM [facility] MCV 94.4 80.7 - 98.3 fL 07/01/2022 5:33 PM [facility] MCH 30.7 26.7 - 34.0 pg 07/01/2022 5:33 PM [facility] MCHC 32.5 30.8 - 35.9 g/dL 07/01/2022 5:33 PM [facility] RDW-SD 45.1 36.0 - 50.0 fL 07/01/2022 5:33 PM [facility] RDW-CV 13.2 11.2 - 14.8 % 07/01/2022 5:33 PM [facility] Platelet Count 108(L) 150 - 400 10? 3 /uL 07/01/2022 5:33 PM [facility] MPV 13.5(H) 9.4 - 12.9 fL 07/01/2022 5:33 PM [facility] Immature Platelet Fraction 9.4(H) 1.1 - 6.2 % 07/01/2022 5:33 PM [facility] nRBC Absolute 0.00 0 10? 3 /uL 07/01/2022 5:33 PM [facility] nRBC Auto 0.0 0 /100 WBC 07/01/2022 5:33 PM [facility] Neutrophils % 59.5 35.0 - 70.0 % 07/01/2022 5:33 PM [facility] Lymphocytes % 19.8(L) 20.0 - 43.0 % 07/01/2022 5:33 PM [facility] Monocytes % 15.5(H) 5.0 - 13.0 % 07/01/2022 5:33 PM [facility] Eosinophils % 4.6 0.0 - 6.0 % 07/01/2022 5:33 PM [facility] Basophil % 0.3 0.0 - 2.0 % 07/01/2022 5:33 PM [facility] Neutrophils Absolute 4.19 1.60 - 7.00 10? 3 /uL 07/01/2022 5:33 PM [facility] Lymphocyte Absolute 1.39 1.10 - 3.90 10? 3 /uL 07/01/2022 5:33 PM [facility] Monocytes Absolute 1.09(H) 0.26 - 1.07 10? 3 /uL 07/01/2022 5:33 PM [facility] Eosinophils Absolute 0.32 0.00 - 0.47 10? 3 /uL 07/01/2022 5:33 PM [facility] Basophils Absolute 0.02 0.00 - 0.08 10? 3 /uL 07/01/2022 5:33 PM [facility] Immature Granulocytes % 0.3 0.0 - 1.0 % 07/01/2022 5:33 PM [facility] Immature Granulocytes Absolute 0.02 07/01/2022 5:33 PM [facility] Blood BLOOD SPECIMEN / Unknown Lab Venipuncture / Unknown 07/01/2022 4:34 PM AUTOMOTIVE PAINT TECHNICIAN 07/01/2022 5:[address] [facility] Artur Mcgraw MD LAB - HEMATOLOGY OR DERABLES Performing Organization Address City/State/[facility] Co de Phone Number [facility] [address] [place] [address], [facility] [phone] * (ABNORMAL) BASIC METABOLIC PANEL (CALCIUM TOTAL) (07/01/2022 4:34 PM AUTOMOTIVE PAINT TECHNICIAN) BUN 12 7 - 26 mg/dL 07/01/2022 5:36 PM [facility] Creatinine 1.05 0.71 - 1.16 mg/dL 07/01/2022 5:36 PM [facility] Sodium 143 136 - 145 mmol/L 07/01/2022 5:36 PM [facility] Potassium 3.9 3.5 - 4.5 mmol/L 07/01/2022 5:36 PM [facility] Chloride 109(H) 98 - 107 mmol/L 07/01/2022 5:36 PM [facility] CO2 26 22 - 29 mmol/L 07/01/2022 5:36 PM [facility] Glucose 108 70 - 115 mg/dL 07/01/2022 5:36 PM [facility] Calcium 9.0 8.4 - 10.2 mg/dL 07/01/2022 5:36 PM [facility] Anion Gap 12 8 - 18 07/01/2022 5:36 PM [facility] BUN/Creatinine Ratio 11 7 - 23 07/01/2022 5:36 PM [facility] Osmolality Calculated 296 270 - 300 mOsm/kg 07/01/2022 5:36 PM [facility] eGFR by CKD-EPI 81(L) >=90 mL/min/1.7 3 m2 07/01/2022 5:36 PM [facility] Blood BLOOD SPECIMEN / Unknown Lab Venipuncture / Unknown 07/01/2022 4:34 PM AUTOMOTIVE PAINT TECHNICIAN 07/01/2022 5:11 PM AUTOMOTIVE PAINT TECHNICIAN Artur Mcgraw MD LAB - CHEMISTRY ORD ERABLES [address] [address], [place] [phone] * CK BLOOD (07/01/2022 4:34 PM AUTOMOTIVE PAINT TECHNICIAN) CK Total 42 30 - 200 U/L 07/01/2022 5:35 PM [facility] Blood BLOOD SPECIMEN / Unknown Lab Venipuncture / Unknown 07/01/2022 4:34 PM AUTOMOTIVE PAINT TECHNICIAN 07/01/2022 5:11 PM AUTOMOTIVE PAINT TECHNICIAN Artur Mcgraw MD LAB - CHEMISTRY ORD ERABLES [address] [address], [place] [phone] * US PELVIS LIMITED (07/01/2022 3:00 PM AUTOMOTIVE PAINT TECHNICIAN) Anatomical Region Laterality Modality Pelvis Ultrasound 07/01/2022 3:19 PM AUTOMOTIVE PAINT TECHNICIAN Narrative 07/02/2022 8:36 AM AUTOMOTIVE PAINT TECHNICIAN PROCEDURE: ??US PELVIS LIMITED, DATE/TIME OF EXAM: ??07/01/2022 2:23 PM, LOCATION ??[facility] INDICATION: Z86.73: History of CVA (cerebrovascular accident) [...] 06/28/2022. Report dictated by Ashu Welch M.D. (operations vice president) IRachel MD have personally reviewed and interpreted this examination/study. > Interpreting Provider: Rachel Phillips MD on 07/02/2022 8:36 AM Procedure Note Rachel Phillips MD - 07/02/2022 PROCEDURE: US PELVIS LIMITED, DATE/TIME OF EXAM: 07/01/2022 2:23 PM, LOCATION [facility] INDICATION: Z86.73: History of CVA (cerebrovascular accident) [...] 06/28/2022. Report dictated by Ashu Welch M.D. (operations vice president) Rachel Thomason MD have personally reviewed and interpreted this examination/study. > Interpreting Provider: Rachel Phillips MD on 07/02/2022 8:36 AM Artur Mcgraw MD US ORDERABLES * (ABNORMAL) GLUCOSE - POINT OF CARE (07/01/2022 5:07 AM AUTOMOTIVE PAINT TECHNICIAN) [facility] Glucose WB/POC 125(H) 70 - 115 mg/dL 07/01/2022 5:12 AM AUTOMOTIVE PAINT TECHNICIAN [facility] Specimen Type Cap Fingerstick 2022 5:12 AM AUTOMOTIVE PAINT TECHNICIAN [facility] Blood BLOOD SPECIMEN / Unknown 07/01/2022 5:07 AM AUTOMOTIVE PAINT TECHNICIAN 07/01/2022 5:12 AM AUTOMOTIVE PAINT TECHNICIAN Artur Mcgraw MD LAB - POINT OF CARE ORDERABLES [facility] [address] [place] [address], [place] [phone] * CULTURE BLOOD FUNGUS (06/30/2022 8:45 PM AUTOMOTIVE PAINT TECHNICIAN) [facility] Culture No fungus isolated JELLY 08/09/2022 2:[address] [facility] Blood PERIPHERAL BLOOD / Unknown Lab Venipuncture / Unknown 06/30/2022 8:45 PM AUTOMOTIVE PAINT TECHNICIAN 06/30/2022 9:20 PM AUTOMOTIVE PAINT TECHNICIAN Artur Mcgraw MD LAB - MICROBIOLOGY ORDERABLES [facility] [address] [place] [address], [facility] [phone] * RESPIRATORY PANEL WITH SARS-COV-2 BY PCR (STL) (06/30/2022 7:52 PM AUTOMOTIVE PAINT TECHNICIAN) [facility] Adenovirus PCR Not detected Not detected 07/01/2022 12:14 AM AUTOMOTIVE PAINT TECHNICIAN [facility] Coronavirus 229E PCR Not detected Not detected 07/01/2022 12:14 AM AUTOMOTIVE PAINT TECHNICIAN [facility] Coronavirus HKU1 PCR Not detected Not detected 07/01/2022 12:14 AM AUTOMOTIVE PAINT TECHNICIAN [facility] Coronavirus NL63 PCR Not detected Not detected 07/01/2022 12:14 AM AUTOMOTIVE PAINT TECHNICIAN [facility] Coronavirus OC43 PCR Not detected Not detected 07/01/2022 12:14 AM AUTOMOTIVE PAINT TECHNICIAN [facility] COVID-19 PCR Not detected Not detected 07/01/2022 12:14 AM AUTOMOTIVE PAINT TECHNICIAN [facility] Human Metapneumovirus PCR Not detected Not detected 07/01/2022 12:14 AM AUTOMOTIVE PAINT TECHNICIAN [facility] Human Rhinovirus/Enterov irus PCR Not detected Not detected 07/01/2022 12:14 AM AUTOMOTIVE PAINT TECHNICIAN [facility] Influenza A PCR Not detected Not detected 07/01/2022 12:14 AM AUTOMOTIVE PAINT TECHNICIAN [facility] Influenza B PCR Not detected Not detected 07/01/2022 12:14 AM AUTOMOTIVE PAINT TECHNICIAN [facility] Parainfluenza Virus 1 PCR Not detected Not detected 07/01/2022 12:14 AM AUTOMOTIVE PAINT TECHNICIAN [facility] Parainfluenza Virus 2 PCR Not detected Not detected 07/01/2022 12:14 AM AUTOMOTIVE PAINT TECHNICIAN [facility] Parainfluenza Virus 3 PCR Not detected Not detected 07/01/2022 12:14 AM AUTOMOTIVE PAINT TECHNICIAN [facility] Parainfluenza Virus 4 PCR Not detected Not detected 07/01/2022 12:14 AM AUTOMOTIVE PAINT TECHNICIAN [facility] Respiratory Syncytial Virus PCR Not detected Not detected 07/01/2022 12:14 AM AUTOMOTIVE PAINT TECHNICIAN [facility] Bordetella parapertussis PCR Not detected Not detected 07/01/2022 12:14 AM AUTOMOTIVE PAINT TECHNICIAN [facility] Bordetella pertussis PCR Not detected Not detected 07/01/2022 12:14 AM AUTOMOTIVE PAINT TECHNICIAN [facility] Chlamydia pneumoniae PCR Not detected Not detected 07/01/2022 12:14 AM AUTOMOTIVE PAINT TECHNICIAN [facility] Mycoplasma pneumoniae PCR Not detected Not detected 07/01/2022 12:14 AM AUTOMOTIVE PAINT TECHNICIAN [facility] Microbiology SPECIMEN FROM NASOPHARYNGEAL STRUCTURE / Unknown Collection / Unknown 06/30/2022 7:52 PM AUTOMOTIVE PAINT TECHNICIAN 06/30/2022 7:55 PM AUTOMOTIVE PAINT TECHNICIAN Narrative [facility] - 07/01/2022 12:14 AM AUTOMOTIVE PAINT TECHNICIAN This nucleic amplification assay has received FDA authorization via the [employer]. Artur Mcgraw MD LAB - MICROBIOLOGY ORDERABLES Performing Organization Address [facility] Co de Phone Number [facility] [address] [place] [address], [facility] [phone] * CULTURE BLOOD (06/30/2022 4:25 PM AUTOMOTIVE PAINT TECHNICIAN) Culture No growth day 5 JELLY 07/05/2022 7:01 PM AUTOMOTIVE PAINT TECHNICIAN [facility] Blood PERIPHERAL BLOOD / Unknown Lab Venipuncture / Unknown 06/30/2022 4:25 PM AUTOMOTIVE PAINT TECHNICIAN 06/30/2022 5:13 PM AUTOMOTIVE PAINT TECHNICIAN Artur Mcgraw MD LAB - MICROBIOLOGY ORDERABLES Performing Organization Address [facility] de Phone Number [facility] [address] [place] [address], [facility] [phone] * CULTURE BLOOD (06/30/2022 4:11 PM AUTOMOTIVE PAINT TECHNICIAN) Culture No growth day 5 JELLY 07/05/2022 7:01 PM AUTOMOTIVE PAINT TECHNICIAN [facility] Blood PERIPHERAL BLOOD / Unknown Lab Venipuncture / Unknown 06/30/2022 4:11 PM AUTOMOTIVE PAINT TECHNICIAN 06/30/2022 5:12 PM AUTOMOTIVE PAINT TECHNICIAN Artur Mcgraw MD LAB - MICROBIOLOGY ORDERABLES Performing Organization Address [facility] de Phone Number [facility] [address] [place] [address], [facility] [phone] * VAS RIGHT VENOUS DUPLEX UE (06/30/2022 3:22 PM AUTOMOTIVE PAINT TECHNICIAN) Anatomical Region Laterality Modality Upper Extremity Intravascular Ul trasound 06/30/2022 2:44 PM AUTOMOTIVE PAINT TECHNICIAN Narrative Procedure Note Shane Doyle MD - 06/30/2022 Artur Mcgraw MD VASCULAR LAB ORDERA BLES * CARDIAC EKG ORDER (06/30/2022 10:43 AM AUTOMOTIVE PAINT TECHNICIAN) Narrative 06/30/2022 10:43 AM AUTOMOTIVE PAINT TECHNICIAN Ordered by an unspecified provider. Scanned Document CARDIAC SERVICES ORD ERABLES * (ABNORMAL) HEPATIC FUNCTION PANEL (06/30/2022 10:39 AM AUTOMOTIVE PAINT TECHNICIAN) [facility] Protein Total 6.2 6.0 - 8.3 g/dL 023 1:57 PM [facility] Albumin 2.2(L) 3.4 - 5.0 g/dL 06/30/2022 1:57 PM [facility] Bilirubin Total 0.3 0.2 - 1.2 mg/dL 05/2022 1:57 PM [facility] Bilirubin Conjugated 0.2 0.1 - 0.5 mg/dL 06/30/2022 1:57 PM [facility] Bilirubin Unconjugated 0.1 Unconjugated Bilirubin is a calculated value: Reference ranges have not been established. mg/dL 06/30/2022 1:57 PM [facility] Alkaline Phosphatase 65 40 - 150 U/L 06/30/2022 1:57 PM [facility] ALT 5 5 - 55 U/L 06/30/2022 1:57 PM [facility] AST 13 5 - 34 U/L 06/30/2022 1:57 PM [facility] Albumin/Globulin Ratio 0.6(L) 1.1 - 2.3 06/30/2022 1:57 PM [facility] Blood BLOOD SPECIMEN / Unknown Lab Venipuncture / Unknown 06/30/2022 10:39 AM AUTOMOTIVE PAINT TECHNICIAN 06/30/2022 10:45 AM AUTOMOTIVE PAINT TECHNICIAN Artur Mcgraw MD LAB - CHEMISTRY ORD ERABLES [facility] [address] [place] [address], [facility] [phone] * (ABNORMAL) CBC W/O DIFFERENTIAL (06/30/2022 10:39 AM AUTOMOTIVE PAINT TECHNICIAN) WBC 10.7(H) 3.5 - 10.5 10? 3 /uL 06/30/2022 11:05 AM [facility] RBC 3.66(L) 4.30 - 5.70 10? 6 /uL 06/30/2022 11:05 AM [facility] Hemoglobin 11.4(L) 12.0 - 17.6 g/dL 06/30/2022 11:05 AM [facility] Hematocrit 34.0(L) 35.2 - 51.7 % 06/30/2022 11:05 AM [facility] MCV 92.9 80.7 - 98.3 fL 06/30/2022 11:05 AM [facility] MCH 31.1 26.7 - 34.0 pg 06/30/2022 11:05 AM [facility] MCHC 33.5 30.8 - 35.9 g/dL 06/30/2022 11:05 AM [facility] RDW-SD 43.9 36.0 - 50.0 fL 06/30/2022 11:05 AM [facility] RDW-CV 12.9 11.2 - 14.8 % 06/30/2022 11:05 AM [facility] Platelet Count 128(L) 150 - 400 10? 3 /uL 06/30/2022 11:05 AM [facility] MPV 06/30/2022 11:05 AM [facility] Comment:Unable to Report Immature Platelet Fraction 11.7(H) 1.1 - 6.2 % 06/30/2022 11:05 AM [facility] nRBC Absolute 0.00 0 10? 3 /uL 06/30/2022 11:05 AM [facility] nRBC Auto 0.0 0 /100 WBC 06/30/2022 11:05 AM [facility] Blood BLOOD SPECIMEN / Unknown Lab Venipuncture / Unknown 06/30/2022 10:39 AM AUTOMOTIVE PAINT TECHNICIAN 06/30/2022 10:45 AM AUTOMOTIVE PAINT TECHNICIAN Artur Mcgraw MD LAB - HEMATOLOGY OR DERABLES Performing Organization Address City/State/[facility] Co de Phone Number [facility] [address] [place], [place] [id number], [facility] [phone] * (ABNORMAL) BASIC METABOLIC PANEL (CALCIUM TOTAL) (06/30/2022 10:[address] [facility]) [facility] BUN 7 7 - 26 mg/dL 06/30/2022 11:19 AM [facility] Creatinine 0.58(L) 0.71 - 1.16 mg/dL 06/30/2022 11:19 AM [facility] Sodium 140 136 - 145 mmol/L 06/30/2022 11:19 AM [facility] Potassium 4.0 3.5 - 4.5 mmol/L 06/30/2022 11:19 AM [facility] Chloride 107 98 - 107 mmol/L 06/30/2022 11:19 AM [facility] CO2 24 22 - 29 mmol/L 06/30/2022 11:19 AM [facility] Glucose 115 70 - 115 mg/dL 06/30/2022 11:19 AM [facility] Calcium 9.5 8.4 - 10.2 mg/dL 06/30/2022 11:19 AM [facility] Anion Gap 13 8 - 18 06/30/2022 11:19 AM [facility] BUN/Creatinine Ratio 12 7 - 23 06/30/2022 11:19 AM [facility] Osmolality Calculated 289 270 - 300 mOsm/kg 06/30/2022 11:19 AM [facility] eGFR by CKD-EPI >90 >=90 mL/min/1.7 3 m2 06/30/2022 11:19 AM [facility] Blood BLOOD SPECIMEN / Unknown Lab Venipuncture / Unknown 06/30/2022 10:39 AM AUTOMOTIVE PAINT TECHNICIAN 06/30/2022 10:[address] [facility] Artur Mcgraw MD LAB - CHEMISTRY ORD ERABLES [facility] [address] [place] [address], [facility] [phone] * (ABNORMAL) VANCOMYCIN LEVEL TROUGH (06/30/2022 10:[address] [facility]) [facility] Vancomycin Trough 25.2(HH) 10.0 - 20.0 ug/mL 06/30/2022 11:18 AM AUTOMOTIVE PAINT TECHNICIAN [facility] Blood BLOOD SPECIMEN / Unknown Lab Venipuncture / Unknown 06/30/2022 10:39 AM AUTOMOTIVE PAINT TECHNICIAN 06/30/2022 10:45 AM AUTOMOTIVE PAINT TECHNICIAN Narrative [facility] - 06/30/2022 11:18 AM AUTOMOTIVE PAINT TECHNICIAN See institution protocol. Artur Mcgraw MD LAB - CHEMISTRY LUCI GUTIERREZ Performing Organization Address [facility]/ZIP Co de Phone Number [address] [address], [facility] [phone] * (ABNORMAL) VANCOMYCIN LEVEL TROUGH (06/30/2022 7:07 AM AUTOMOTIVE PAINT TECHNICIAN) [facility] Vancomycin Trough 5.3(L) 10.0 - 20.0 ug/mL 06/30/2022 7:46 AM AUTOMOTIVE PAINT TECHNICIAN [facility] Blood BLOOD SPECIMEN / Unknown Lab Venipuncture / Unknown 06/30/2022 7:07 AM AUTOMOTIVE PAINT TECHNICIAN 06/30/2022 7:16 AM AUTOMOTIVE PAINT TECHNICIAN Narrative [facility] - 06/30/2022 7:46 AM AUTOMOTIVE PAINT TECHNICIAN See institution protocol. Bhavesh Easley MD LAB - CHEMISTRY MARSHAL MEDEROS Performing Organization Address [facility] Co de Phone Number [address] [address], [facility] [phone] * EKG 12-LEAD (06/30/2022 3:51 AM AUTOMOTIVE PAINT TECHNICIAN) Ventricular Rate 125 BPM [facility] MUSE Atrial Rate 125 BPM [facility] MUSE P-R Interval 148 ms [facility] MUSE QRS Duration ms 76 ms [facility] MUSE Q-T Interval ms 286 ms [facility] MUSE QTC Calculation (Bezet) 412 ms [facility] MUSE Calculated P [place] 65 degrees SL MUSE Calculated R [place] 2 degrees [facility] MUSE Calculated T [place] 82 degrees [facility] MUSE Interpretation EKG SINUS TACHYCARDIA WITH OCCASIONAL PREMATURE VENTRICULAR COMPLEXES OTHERWISE NORMAL ECG WHEN COMPARED WITH ECG OF 27-JUN-2022 22:40, MANUAL COMPARISON REQUIRED, DATA IS UNCONFIRMED Confirmed by SHARDA LANDIS MD ([id number]) on 06/30/2022 1:15:51 PM [facility] MUSE 06/30/2022 3:51 AM AUTOMOTIVE PAINT TECHNICIAN 06/30/2022 1:15 PM AUTOMOTIVE PAINT TECHNICIAN Yasmani Vigil MD ECG ORDERABLES Performing Organization Address City/[facility]/ZIP Co de Phone Number [facility] MUSE * (ABNORMAL) CULTURE MRSA (06/29/2022 12:42 PM AUTOMOTIVE PAINT TECHNICIAN) Pathologist [facility] Culture Growth of Staphylococcus aureus methicillin-resist ant (MRSA)(A) 06/30/2022 9:39 PM AUTOMOTIVE PAINT TECHNICIAN [facility] MICROBIOLOGY Microbiology SPECIMEN FROM NASAL FOSSAE / Unknown Collection / Unknown 06/29/2022 12:42 PM AUTOMOTIVE PAINT TECHNICIAN 06/29/2022 12:50 PM AUTOMOTIVE PAINT TECHNICIAN Narrative [facility] MICROBIOLOGY - 06/30/2022 9:39 PM AUTOMOTIVE PAINT TECHNICIAN Methicillin-resistant Staphylococci (MRSA) are resistant to all currently available beta-lactam antibiotics with the exception of the newer cephalosporins with anti-MRSA activity. Contact precautions required. Artur Mcgraw MD LAB - MICROBIOLOGY ORDERABLES Performing Organization Address [facility] Co de Phone Number [facility] [facility] [address] [place], [place] [address], [facility] [phone] * (ABNORMAL) BASIC METABOLIC PANEL (CALCIUM TOTAL) (06/29/2022 7:09 AM AUTOMOTIVE PAINT TECHNICIAN) BUN 11 7 - 26 mg/dL 06/29/2022 7:46 AM [facility] Creatinine 0.56(L) 0.71 - 1.16 mg/dL 06/29/2022 7:46 AM [facility] Sodium 140 136 - 145 mmol/L 06/29/2022 7:46 AM [facility] Potassium 4.4 3.5 - 4.5 mmol/L 06/29/2022 7:46 AM [facility] Chloride 106 98 - 107 mmol/L 06/29/2022 7:46 AM [facility] CO2 26 22 - 29 mmol/L 06/29/2022 7:46 AM AUTOMOTIVE PAINT TECHNICIAN [facility] Glucose 102 70 - 115 mg/dL 06/29/2022 7:46 AM [facility] Calcium 9.5 8.4 - 10.2 mg/dL 06/29/2022 7:46 AM [facility] Anion Gap 12 8 - 18 06/29/2022 7:46 AM [facility] BUN/Creatinine Ratio 20 7 - 23 06/29/2022 7:46 AM [facility] Osmolality Calculated 290 270 - 300 mOsm/kg 06/29/2022 7:46 AM [facility] eGFR by CKD-EPI >90 >=90 mL/min/1.7 3 m2 06/29/2022 7:46 AM [facility] Blood BLOOD SPECIMEN / Unknown Lab Venipuncture / Unknown 06/29/2022 7:09 AM AUTOMOTIVE PAINT TECHNICIAN 06/29/2022 7:[address] [facility] Bhavesh Easley MD LAB - CHEMISTRY MARSHAL MEDEROS [facility] Organization Address [facility] Co de Phone Number [address] [address] [phone] * (ABNORMAL) CBC W/O DIFFERENTIAL (06/29/2022 7:[address] [facility]) WBC 11.1(H) 3.5 - 10.5 10? 3 /uL 06/29/2022 7:27 AM [facility] RBC 3.40(L) 4.30 - 5.70 10? 6 /uL 06/29/2022 7:27 AM [facility] Hemoglobin 10.6(L) 12.0 - 17.6 g/dL 06/29/2022 7:27 AM [facility] Hematocrit 32.4(L) 35.2 - 51.7 % 06/29/2022 7:27 AM [facility] MCV 95.3 80.7 - 98.3 fL 06/29/2022 7:27 AM [facility] MCH 31.2 26.7 - 34.0 pg 06/29/2022 7:27 AM [facility] MCHC 32.7 30.8 - 35.9 g/dL 06/29/2022 7:27 AM [facility] RDW-SD 44.7 36.0 - 50.0 fL 06/29/2022 7:27 AM [facility] RDW-CV 13.1 11.2 - 14.8 % 06/29/2022 7:27 AM [facility] Platelet Count 142(L) 150 - 400 10? 3 /uL 06/29/2022 7:27 AM [facility] MPV 12.7 9.4 - 12.9 fL 06/29/2022 7:27 AM [facility] nRBC Absolute 0.00 0 10? 3 /uL 06/29/2022 7:27 AM [facility] nRBC Auto 0.0 0 /100 WBC 06/29/2022 7:27 AM [facility] Blood BLOOD SPECIMEN / Unknown Lab Venipuncture / Unknown 06/29/2022 7:09 AM AUTOMOTIVE PAINT TECHNICIAN 06/29/2022 7:[address] [facility] Bhavesh Easley MD LAB - HEMATOLOGY ORD ERABLES [facility] [address] [place] [address], [facility] [phone] * (ABNORMAL) PROCALCITONIN LEVEL (06/28/2022 5:30 PM AUTOMOTIVE PAINT TECHNICIAN) PROCALCITONIN 0.30(H) <=0.10 ng/mL 06/28/2022 6:36 PM [facility] Blood BLOOD SPECIMEN / Unknown Venipuncture / Unknown 06/28/2022 5:30 PM AUTOMOTIVE PAINT TECHNICIAN 06/28/2022 5:34 PM AUTOMOTIVE PAINT TECHNICIAN Narrative [facility] - 06/28/2022 6:36 PM AUTOMOTIVE PAINT TECHNICIAN The change in procalcitonin (PCT) concentration over [...] Change in Procalcitonin Calculator is available at [email or web address] ?? If clinical picture has not improved and PCT remains high, reevaluate and consider treatment failure or other causes. Yasmani Vigil MD LAB - CHEMISTRY MARSHAL MEDEROS Performing Organization Address City/[facility]/ZIP Co de Phone Number [address] [address], [facility] [phone] * LACTIC ACID BLOOD (06/28/2022 11:08 AM AUTOMOTIVE PAINT TECHNICIAN) [facility] Lactic Acid-Stat 2.0 <=2.0 mmol/L 06/28/2022 12:06 PM AUTOMOTIVE PAINT TECHNICIAN [facility] Blood BLOOD SPECIMEN / Unknown Venipuncture / Unknown 06/28/2022 11:08 AM AUTOMOTIVE PAINT TECHNICIAN 06/28/2022 11:44 AM AUTOMOTIVE PAINT TECHNICIAN Bhavesh Easley MD LAB - CHEMISTRY MARSHAL MEDEROS Performing Organization Address [facility]/ZIP Co de Phone Number [address] [address], [facility] [phone] * (ABNORMAL) LACTIC ACID BLOOD (06/28/2022 6:31 AM AUTOMOTIVE PAINT TECHNICIAN) [facility] Lactic Acid-Stat 2.5(H) <=2.0 mmol/L 06/28/2022 6:56 AM AUTOMOTIVE PAINT TECHNICIAN [facility] Blood BLOOD SPECIMEN / Unknown Venipuncture / Unknown 06/28/2022 6:31 AM AUTOMOTIVE PAINT TECHNICIAN 06/28/2022 6:32 AM AUTOMOTIVE PAINT TECHNICIAN Yasmani Vigil MD LAB - CHEMISTRY MARSHAL MEDEROS Performing Organization Address [facility]/ZIP Co de Phone Number [facility] [address] [place] [address], [facility] [phone] * LEGIONELLA ANTIGEN URINE (06/28/2022 3:48 AM AUTOMOTIVE PAINT TECHNICIAN) Legionella Antigen Urine Negative Negative 06/28/2022 10:05 AM [facility] Urine URINE / Unknown Collection / Unknown 06/28/2022 3:48 AM AUTOMOTIVE PAINT TECHNICIAN 06/28/2022 3:52 AM AUTOMOTIVE PAINT TECHNICIAN Narrative [facility] - 06/28/2022 10:05 AM AUTOMOTIVE PAINT TECHNICIAN This assay detects Legionella pneumophila serogroup one (1) antigen. A negative test result does not rule out the possibility of Legionella infection due to other serogroups or species of Legionella. A positive result may indicate a recent or remote infection with serogroup 1. Yasmani Vigil MD LAB - MICROBIOLOGY O RDERABLES Performing Organization Address City/[facility]/ZIP Co de Phone Number [facility] [address] [place] [address], [facility] [phone] * (ABNORMAL) URINALYSIS REFLEX TO MICROSCOPIC NO CULTURE (06/28/2022 3:48 AM AUTOMOTIVE PAINT TECHNICIAN) Color UA Yellow Straw, Yellow 06/28/2022 4:07 AM [facility] Clarity UA Clear Clear 06/28/2022 4:07 AM [facility] Specific [place] UA 1.015 1.005 - 1.030 06/28/2022 4:07 AM [facility] pH UA 8.5(H) 5.0 - 8.0 pH 06/28/2022 4:07 AM [facility] Protein UA Negative Negative 06/28/2022 4:07 AM [facility] Glucose UA Negative Negative 06/28/2022 4:07 AM [facility] Ketone UA Negative Negative 06/28/2022 4:07 AM [facility] Bilirubin UA Negative Negative 06/28/2022 4:07 AM [facility] Blood UA Negative Negative 06/28/2022 4:07 AM [facility] Nitrite UA Negative Negative 06/28/2022 4:07 AM [facility] Leukocyte Esterase Negative Negative 06/28/2022 4:07 AM [facility] Urobilinogen UA Negative Negative mg/dL 06/28/2022 4:07 AM [facility] RBC UA 0-2 None Seen, 0-2, 3-5 /HPF 06/28/2022 4:07 AM [facility] WBC UA 0-5 None Seen, 0-5 /HPF 06/28/2022 4:07 AM [facility] Squamous Epithelial Cells UA 0-2 None Seen, 0-2, 3-5 /HPF 06/28/2022 4:07 AM [facility] Urine URINE SPECIMEN OBTAINED BY CLEAN CATCH PROCEDURE / Unknown Collection / Unknown 06/28/2022 3:48 AM AUTOMOTIVE PAINT TECHNICIAN 06/28/2022 3:[address] [facility] Narrative [facility] - 06/28/2022 4:07 AM AUTOMOTIVE PAINT TECHNICIAN Arthur Marinelli MD LAB - URINALYSIS OR DERABLES [address] [address], [place] [phone] * LACTIC ACID REPEAT REFLEX (06/28/2022 1:41 AM AUTOMOTIVE PAINT TECHNICIAN) Lactic Acid Repeat Reflex Order LACTIC ACID REPEAT HAS BEEN ORDERED 06/28/2022 4:03 AM [facility] Blood BLOOD SPECIMEN / Unknown Venipuncture / Unknown 06/28/2022 1:41 AM AUTOMOTIVE PAINT TECHNICIAN 06/28/2022 2:05 AM AUTOMOTIVE PAINT TECHNICIAN Arthur Marinelli MD LAB - CHEMISTRY ORD ERABLES [address] [address], [place] [phone] * (ABNORMAL) LACTIC ACID BLOOD REFLEX TO REPEAT (06/28/2022 1:41 AM AUTOMOTIVE PAINT TECHNICIAN) Lactic Acid-Stat 2.9(H) <=2.0 mmol/L 06/28/2022 2:05 AM AUTOMOTIVE PAINT TECHNICIAN [facility] Blood BLOOD SPECIMEN / Unknown Venipuncture / Unknown 06/28/2022 1:41 AM AUTOMOTIVE PAINT TECHNICIAN 06/28/2022 1:45 AM AUTOMOTIVE PAINT TECHNICIAN Arthur Marinelli MD LAB - CHEMISTRY ORD ERABLES [address] [address], [facility] [phone] * TROPONIN I (06/28/2022 1:41 AM AUTOMOTIVE PAINT TECHNICIAN) Pathologist [facility] Troponin I <0.010 <0.032 ng/mL 06/28/2022 2:16 AM AUTOMOTIVE PAINT TECHNICIAN [facility] Blood BLOOD SPECIMEN / Unknown Venipuncture / Unknown 06/28/2022 1:41 AM AUTOMOTIVE PAINT TECHNICIAN 06/28/2022 1:46 AM AUTOMOTIVE PAINT TECHNICIAN Arthur Marinelli MD LAB - CHEMISTRY ORD ERABLES [address] [address], [facility] [phone] * CT CHEST PE W ABD PELVIS W CONT (06/28/2022 1:05 AM AUTOMOTIVE PAINT TECHNICIAN) Anatomical Region Laterality Modality Chest, Abdomen, Pelvis Computed Tomography 06/28/2022 1:52 AM AUTOMOTIVE PAINT TECHNICIAN Impressions 06/28/2022 8:38 AM AUTOMOTIVE PAINT TECHNICIAN Impression: 1.No evidence of acute pulmonary embolism. [...] unremarkable. > Dictated by Alexandro Kelsey MD (operations vice president) Ashwin Thomason MD have personally reviewed and interpreted this examination/study. > Interpreting Provider: Ashwin Read MD on 06/28/2022 8:38 AM Narrative 06/28/2022 8:38 AM AUTOMOTIVE PAINT TECHNICIAN PROCEDURE: ??CT CHEST PE W ABD PELVIS W CONT, DATE/TIME OF EXAM: ??06/28/2022 1:26 AM, LOCATION ??[facility] INDICATION: R09.02: Hypoxia ADDITIONAL CLINICAL INFORMATION: [...] tissues of the pelvis. Procedure Note Dianne Read MD - 06/28/2022 PROCEDURE: CT CHEST PE W ABD PELVIS W CONT, DATE/TIME OF EXAM:06/28/2022 1:26 AM, LOCATION [facility] INDICATION: R09.02: Hypoxia ADDITIONAL CLINICAL INFORMATION: [...] unremarkable. > Dictated by Alexandro Kelsey MD (operations vice president) IAshwin MD have personally reviewed and interpreted this examination/study. > Interpreting Provider: Ashwin Read MD on 06/28/2022 8:38 AM Arthur Marinelli MD CT ORDERABLES * (ABNORMAL) CBC W AUTO DIFFERENTIAL (06/27/2022 11:30 PM AUTOMOTIVE PAINT TECHNICIAN) WBC 15.8(H) 3.5 - 10.5 10? 3 /uL 06/27/2022 11:42 PM AUTOMOTIVE PAINT TECHNICIAN [facility] RBC 3.88(L) 4.30 - 5.70 10? 6 /uL 06/27/2022 11:42 PM AUTOMOTIVE PAINT TECHNICIAN [facility] Hemoglobin 11.9(L) 12.0 - 17.6 g/dL 06/27/2022 11:42 PM AUTOMOTIVE PAINT TECHNICIAN [facility] Hematocrit 36.7 35.2 - 51.7 % 06/27/2022 11:42 PM [facility] MCV 94.6 80.7 - 98.3 fL 06/27/2022 11:42 PM [facility] MCH 30.7 26.7 - 34.0 pg 06/27/2022 11:42 PM [facility] MCHC 32.4 30.8 - 35.9 g/dL 06/27/2022 11:42 PM [facility] RDW-SD 44.0 36.0 - 50.0 fL 06/27/2022 11:42 PM [facility] RDW-CV 12.9 11.2 - 14.8 % 06/27/2022 11:42 PM [facility] Platelet Count 196 150 - 400 10? 3 /uL 06/27/2022 11:42 PM [facility] MPV 12.5 9.4 - 12.9 fL 06/27/2022 11:42 PM [facility] nRBC Absolute 0.00 0 10? 3 /uL 06/27/2022 11:42 PM [facility] nRBC Auto 0.0 0 /100 WBC 06/27/2022 11:42 PM [facility] Neutrophils % 82.1(H) 35.0 - 70.0 % 06/27/2022 11:42 PM [facility] Lymphocytes % 9.1(L) 20.0 - 43.0 % 06/27/2022 11:42 PM [facility] Monocytes % 7.1 5.0 - 13.0 % 06/27/2022 11:42 PM [facility] Eosinophils % 1.1 0.0 - 6.0 % 06/27/2022 11:42 PM [facility] Basophil % 0.2 0.0 - 2.0 % 06/27/2022 11:42 PM [facility] Neutrophils Absolute 12.97(H) 1.60 - 7.00 10? 3 /uL 06/27/2022 11:42 PM [facility] Lymphocyte Absolute 1.44 1.10 - 3.90 10? 3 /uL 06/27/2022 11:42 PM [facility] Monocytes Absolute 1.13(H) 0.26 - 1.07 10? 3 /uL 06/27/2022 11:42 PM AUTOMOTIVE PAINT TECHNICIAN [facility] Eosinophils Absolute 0.18 0.00 - 0.47 10? 3 /uL 06/27/2022 11:42 PM AUTOMOTIVE PAINT TECHNICIAN [facility] Basophils Absolute 0.03 0.00 - 0.08 10? 3 /uL 06/27/2022 11:42 PM AUTOMOTIVE PAINT TECHNICIAN [facility] Immature Granulocytes % 0.4 0.0 - 1.0 % 06/27/2022 11:42 PM [facility] Immature Granulocytes Absolute 0.06 06/27/2022 11:42 PM AUTOMOTIVE PAINT TECHNICIAN [facility] Blood BLOOD SPECIMEN / Unknown Venipuncture / Unknown 06/27/2022 11:30 PM AUTOMOTIVE PAINT TECHNICIAN 06/27/2022 11:35 PM AUTOMOTIVE PAINT TECHNICIAN Arthur Marinelli MD LAB - HEMATOLOGY OR DERABLES Performing Organization Address [facility]/ZIP Co de Phone Number [facility] [address] [place] [address], [facility] [phone] * EKG 12-LEAD (06/27/2022 10:40 PM AUTOMOTIVE PAINT TECHNICIAN) Pathologist [facility] Ventricular Rate 137 BPM SL MUSE Atrial Rate 137 BPM [facility] MUSE P-R Interval 136 ms [facility] MUSE QRS Duration ms 74 ms [facility] MUSE Q-T Interval ms 284 ms [facility] MUSE QTC Calculation (Bezet) 428 ms [facility] MUSE Calculated P [place] 31 degrees SL MUSE Calculated R [place] 17 degrees [facility] MUSE Calculated T [place] 82 degrees [facility] MUSE Interpretation EKG SINUS TACHYCARDIA ANTERIOR INFARCT (CITED ON OR BEFORE 30-MAY-2022) ABNORMAL ECG WHEN COMPARED WITH ECG OF 30-MAY-2022 16:00, VENT. RATE HAS INCREASED BY ??46 BPM QUESTIONABLE CHANGE IN INITIAL FORCES OF SEPTAL LEADS T WAVE INVERSION NO LONGER EVIDENT IN ANTERIOR LEADS Confirmed by INO LANDIS MDSHORE ([id number]) on 06/30/2022 2:22:42 PM [facility] MUSE 06/27/2022 10:4 0 PM AUTOMOTIVE PAINT TECHNICIAN 06/30/2022 2:22 PM AUTOMOTIVE PAINT TECHNICIAN Arthur Marinelli MD ECG ORDERABLES Performing Organization Address [facility] Co de Phone Number [facility] * SARS-COV-2 (COVID-19) FLU A/B RSV PCR RAPID (06/27/2022 10:23 PM AUTOMOTIVE PAINT TECHNICIAN) COVID-19 PCR Not detected Not detected 06/27/19 11:10 PM AUTOMOTIVE PAINT TECHNICIAN [facility] Influenza A PCR Not detected Not detected 06/27/2022 11:10 PM AUTOMOTIVE PAINT TECHNICIAN [facility] Influenza B PCR Not detected Not detected 06/27/2022 11:10 PM AUTOMOTIVE PAINT TECHNICIAN [facility] RSV PCR Not detected Not detected 06/27/2022 11:10 PM AUTOMOTIVE PAINT TECHNICIAN [facility] Microbiology SPECIMEN FROM NASOPHARYNGEAL STRUCTURE / Unknown Collection / Unknown 06/27/2022 10:23 PM AUTOMOTIVE PAINT TECHNICIAN 06/27/2022 10:28 PM AUTOMOTIVE PAINT TECHNICIAN Narrative [facility] - 06/27/2022 11:10 PM AUTOMOTIVE PAINT TECHNICIAN This nucleic acid amplification assay has been [...] Arthur Marinelli MD LAB - MICROBIOLOGY ORDERABLES Performing Organization Address City/[facility]/ZIP Co de Phone Number [facility] [address] [place] [address], [facility] [phone] * LACTIC ACID REPEAT REFLEX (06/27/2022 10:15 PM AUTOMOTIVE PAINT TECHNICIAN) Lactic Acid Repeat Reflex Order LACTIC ACID REPEAT HAS BEEN ORDERED 06/28/2022 12:31 AM AUTOMOTIVE PAINT TECHNICIAN [facility] Blood BLOOD SPECIMEN / Unknown Venipuncture / Unknown 06/27/2022 10:15 PM AUTOMOTIVE PAINT TECHNICIAN 06/27/2022 11:06 PM AUTOMOTIVE PAINT TECHNICIAN Arthur Marinelli MD LAB - CHEMISTRY ORD ERABLES [facility] [address] [place] [address], [facility] [phone] * PT-INR [facility] (06/27/2022 10:15 PM AUTOMOTIVE PAINT TECHNICIAN) PT 12.8 12.1 - 14.8 Seconds 06/27/2022 10:54 PM AUTOMOTIVE PAINT TECHNICIAN [facility] INR 1.0 See Comment 06/27/2022 10:54 PM AUTOMOTIVE PAINT TECHNICIAN [facility] Comment:The suggested therap eutic range for standard coumadin (warfarin) therapy is an INR of 2.0-3.0. For high-risk patients (Mechanical Mitral Valve Prosthesis, etc.), the suggested prophylactic therapeutic range is an INR of 2.5-3.5. Blood BLOOD SPECIMEN / Unknown Venipuncture / Unknown 06/27/2022 10:15 PM AUTOMOTIVE PAINT TECHNICIAN 06/27/2022 10:33 PM AUTOMOTIVE PAINT TECHNICIAN Arthur Marinelli MD LAB - COAGULATION O RDERABLES [facility] [address] [place] [address], [facility] [phone] * CULTURE BLOOD (06/27/2022 10:15 PM AUTOMOTIVE PAINT TECHNICIAN) Culture No growth day 5 JELLY 07/03/2022 2:00 AM AUTOMOTIVE PAINT TECHNICIAN [facility] Blood PERIPHERAL BLOOD / Unknown Venipuncture / Unknown 06/27/2022 10:15 PM AUTOMOTIVE PAINT TECHNICIAN 06/27/2022 10:29 PM AUTOMOTIVE PAINT TECHNICIAN Arthur Marinelli MD LAB - MICROBIOLOGY ORDERABLES [facility] [address] [place] [address], [facility] [phone] * TROPONIN I (06/27/2022 10:15 PM AUTOMOTIVE PAINT TECHNICIAN) Troponin I <0.010 <0.032 ng/mL 06/27/2022 11:05 PM AUTOMOTIVE PAINT TECHNICIAN [facility] Blood BLOOD SPECIMEN / Unknown Venipuncture / Unknown 06/27/2022 10:15 PM AUTOMOTIVE PAINT TECHNICIAN 06/27/2022 10:32 PM AUTOMOTIVE PAINT TECHNICIAN Arthur Marinelli MD LAB - CHEMISTRY ORD ERABLES Performing Organization Address City/[facility]/ZIP Co de Phone Number [address] [address], [place] [phone] * MAGNESIUM BLOOD (06/27/2022 10:15 PM AUTOMOTIVE PAINT TECHNICIAN) Magnesium 1.9 1.6 - 2.6 mg/dL 06/27/2022 10:59 PM AUTOMOTIVE PAINT TECHNICIAN [facility] Blood BLOOD SPECIMEN / Unknown Venipuncture / Unknown 06/27/2022 10:15 PM AUTOMOTIVE PAINT TECHNICIAN 06/27/2022 10:32 PM AUTOMOTIVE PAINT TECHNICIAN Arthur Marinelli MD LAB - CHEMISTRY ORD ERABLES Performing Organization Address City/[facility]/ZIP Co de Phone Number [address] [address], [place] [phone] * LIPASE BLOOD (06/27/2022 10:15 PM AUTOMOTIVE PAINT TECHNICIAN) Pathologist [facility] Lipase 18 8 - 78 U/L 06/27/2022 10:59 PM AUTOMOTIVE PAINT TECHNICIAN [facility] Blood BLOOD SPECIMEN / Unknown Venipuncture / Unknown 06/27/2022 10:15 PM AUTOMOTIVE PAINT TECHNICIAN 06/27/2022 10:32 PM AUTOMOTIVE PAINT TECHNICIAN Narrative [facility] - 06/27/2022 10:59 PM AUTOMOTIVE PAINT TECHNICIAN Lipase results from the [employer] Al[employer] analyzer may not be comparable with other methodologies. Arthur Marinelli MD LAB - CHEMISTRY ORD ERABLES Performing Organization Address City/[facility]/ZIP Co de Phone Number [address] [address], [place] [phone] * (ABNORMAL) LACTIC ACID BLOOD REFLEX TO REPEAT (06/27/2022 10:15 PM AUTOMOTIVE PAINT TECHNICIAN) Pathologist [facility] Lactic Acid-Stat 2.5(H) <=2.0 mmol/L 06/27/2022 11:06 PM [facility] Blood BLOOD SPECIMEN / Unknown Venipuncture / Unknown 06/27/2022 10:15 PM AUTOMOTIVE PAINT TECHNICIAN 06/27/2022 10:32 PM AUTOMOTIVE PAINT TECHNICIAN Arthur Marinelli MD LAB - CHEMISTRY ORD ERABLES Performing Organization Address City/[facility]/ZIP Co de Phone Number [facility] [address] [place] [address] [phone] * (ABNORMAL) COMPREHENSIVE METABOLIC PANEL (06/27/2022 10:15 PM AUTOMOTIVE PAINT TECHNICIAN) [facility] BUN 17 7 - 26 mg/dL 06/27/2022 10:59 PM [facility] Creatinine 0.78 0.71 - 1.16 mg/dL 06/27/2022 10:59 PM [facility] Sodium 142 136 - 145 mmol/L 06/27/2022 10:59 PM [facility] Potassium 4.4 3.5 - 4.5 mmol/L 06/27/2022 10:59 PM [facility] Chloride 101 98 - 107 mmol/L 06/27/2022 10:59 PM [facility] CO2 26 22 - 29 mmol/L 06/27/2022 10:59 PM [facility] Glucose 98 70 - 115 mg/dL 06/27/2022 10:59 PM [facility] Calcium 10.3(H) 8.4 - 10.2 mg/dL 06/27/2022 10:59 PM [facility] Protein Total 8.3 6.0 - 8.3 g/dL 06/27/2022 10:59 PM [facility] Albumin 3.4 3.4 - 5.0 g/dL 06/27/2022 10:59 PM [facility] Bilirubin Total 0.3 0.2 - 1.2 mg/dL 06/27/2022 10:59 PM [facility] Alkaline Phosphatase 95 40 - 150 U/L 06/27/2022 10:59 PM [facility] ALT 6 5 - 55 U/L 06/27/2022 10:59 PM [facility] AST 19 5 - 34 U/L 06/27/2022 10:59 PM [facility] Anion Gap 19(H) 8 - 18 06/27/2022 10:59 PM [facility] BUN/Creatinine Ratio 22 7 - 23 06/27/2022 10:59 PM [facility] Osmolality Calculated 296 270 - 300 mOsm/kg 06/27/2022 10:59 PM [facility] Albumin/Globulin Ratio 0.7(L) 1.1 - 2.3 06/27/2022 10:59 PM [facility] eGFR by CKD-EPI >90 >=90 mL/min/1.7 3 m2 06/27/2022 10:59 PM [facility] Blood BLOOD SPECIMEN / Unknown Venipuncture / Unknown 06/27/2022 10:15 PM AUTOMOTIVE PAINT TECHNICIAN 06/27/2022 10:32 PM AUTOMOTIVE PAINT TECHNICIAN Arthur Marinelli MD LAB - CHEMISTRY ORD ERABLES [facility] [address] [place] [address], [facility] [phone] * XR CHEST 1VW PORTABLE (06/27/2022 10:01 PM AUTOMOTIVE PAINT TECHNICIAN) Anatomical Region Laterality Modality Chest Radiographic Cynthia ging 06/27/2022 10:2 2 PM AUTOMOTIVE PAINT TECHNICIAN Impressions 06/27/2022 11:09 PM AUTOMOTIVE PAINT TECHNICIAN IMPRESSION: Right lower lung zone consolidative opacities, which corresponds to the consolidation seen on chest CT 06/12/2022 and consistent with pneumonia and/or aspiration pneumonitis. Report drafted by Rodolfo Naidu MD (residential coordinator). I, Georgia Lees MD, PhD have personally reviewed and interpreted this examination/study. > Interpreting Provider: Georgia Lees MD, PhD on 06/27/2022 11:09 PM Narrative 06/27/2022 11:09 PM AUTOMOTIVE PAINT TECHNICIAN EXAM: XR CHEST 1VW PORTABLE DATE/TIME: 06/27/2022 10:02 PM LOCATION: ??[facility] HISTORY: R09.02: Hypoxia COMPARISON: Chest radiograph 06/11/2022. Chest CT 06/12/2022. FINDINGS: Lines/Tubes: None. Lungs: Right lower lung zone consolidative opacities, which corresponds to the consolidation seen on chest CT 06/12/2022 and consistent with pneumonia or aspiration pneumonitis. Left lung is clear. Pleura: No pneumothorax or pleural effusion. Mediastinum/Other: Normal cardiomediastinal silhouette given rotation. Bones: Visible bony thorax is intact. Procedure Note Georgia Lees MD - 06/27/2022 EXAM: XR CHEST 1VW PORTABLE DATE/TIME: 06/27/2022 10:02 PM LOCATION: [facility] HISTORY: R09.02: Hypoxia COMPARISON: Chest radiograph 06/11/2022. Chest CT 06/12/2022. FINDINGS: Lines/Tubes: None. Lungs: Right lower lung zone consolidative opacities, which correspondsto the consolidation seen on chest CT 06/12/2022 and consistent withpneumonia or aspiration pneumonitis. Left lung is clear. Pleura: No pneumothorax or pleural effusion. Mediastinum/Other: Normal cardiomediastinal silhouette given rotation. Bones: Visible bony thorax is intact. IMPRESSION: Right lower lung zone consolidative opacities, which corresponds to the consolidation seen on chest CT 06/12/2022 and consistent with pneumonia and/or aspiration pneumonitis. Report drafted by Rodolfo Naidu MD (residential coordinator). I, Georiga Lees MD, PhD have personally reviewed and interpreted this examination/study. > Interpreting Provider: Georgia Lees MD, PhD on 06/27/2022 11:09 PM Arthur Marinelli MD DIAGNOSTIC IMAGING ORDERABLES * CULTURE BLOOD (06/27/2022 10:00 PM AUTOMOTIVE PAINT TECHNICIAN) Culture No growth day 5 JELLY 07/03/2022 2:00 AM AUTOMOTIVE PAINT TECHNICIAN [facility] Blood PERIPHERAL BLOOD / Unknown Venipuncture / Unknown 06/27/2022 10:00 PM AUTOMOTIVE PAINT TECHNICIAN 06/27/2022 10:29 PM AUTOMOTIVE PAINT TECHNICIAN Arthur Marinelli MD LAB - MICROBIOLOGY ORDERABLES [facility] [address] [place] [address], [facility] [phone] documented in this encounter Visit Diagnoses Diagnosis History of CVA (cerebrovascular accident)- Primary Transient ischemic attack (TIA), and cerebral infarction without residual deficits Hypoxia Hypoxemia Acute respiratory failure with hypoxia (HCC) Acute respiratory failure Leukocytosis, unspecified type Tachycardia Tachycardia, unspecified Pneumonia of right lower lobe due to infectious organism Paroxysmal tachycardia, unspecified (HCC) Paroxysmal tachycardia, unspecified Aspiration pneumonitis (HCC) Pneumonitis due to inhalation of food or vomitus Aspiration into lower respiratory tract, initial encounter Dysphagia, oropharyngeal phase Aspiration into airway, sequela Pulmonary infiltrate Other nonspecific abnormal finding of lung field Acute on chronic respiratory failure with hypoxia (HCC) Atelectasis, right Pulmonary collapse History of stroke Transient ischemic attack (TIA), and cerebral infarction without residual deficits Seizures (HCC) Other convulsions Aspiration into airway, subsequent encounter Abdominal pain, generalized Leukocytosis, unspecified type Tachycardia Tachycardia, unspecified Hypoxia Hypoxemia Acute respiratory failure with hypoxia (HCC) Acute respiratory failure Pneumonia of right lower lobe due to infectious organism History of stroke Transient ischemic attack (TIA), and cerebral infarction without residual deficits Epilepsy, unspecified, not intractable, without status epilepticus (HCC) Hemiplegia and 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- dominant side (CMS/HCC) Muscle weakness (generalized) PAD (peripheral artery disease) (HCC) Unspecified disorders of arteries and arterioles Sepsis without acute organ dysfunction (HCC) Protein-calorie malnutrition, unspecified severity (HCC) Aspiration into airway Atelectasis, right Pulmonary collapse Contrast-induced nephropathy Acute encephalopathy Encephalopathy, unspecified Zenker diverticula Diverticulum of esophagus, acquired Hypernatremia Hyperosmolality and/or hypernatremia Hyperkalemia Hyperpotassemia documented in this encounter Administered Medications Inactive Administered Medications - up to 3 most recent administrations Medication Order MAR Action Action Date Dose Rate Site 0.9% NaCl injection 1-10 mL 1-10 mL, Intracatheter, PRN, Other, peripheral line flush, Starting on Tue06/28/22 at 0256, Until Tue07/21/22 at 1819, Flush peripheral IV catheter with 1-10 mL of normal saline before and after medications and prn to clear blood from the line or to verify patency. 0.9% NaCl injection 3 mL 3 mL, Intracatheter, EVERY 8 HOURS, First dose on Tue06/28/22 at 0600, Until Discontinued, Flush peripheral IV catheter with 3 mL of normal saline every 8 hours. $ Given 07/21/2022 5:23 AM AUTOMOTIVE PAINT TECHNICIAN 3 mL $ Given 07/20/2022 8:46 PM AUTOMOTIVE PAINT TECHNICIAN 3 mL $ Given 07/20/2022 3:21 PM AUTOMOTIVE PAINT TECHNICIAN 3 mL acetaminophen (Tylenol) tablet 500 mg 500 mg, Enteral Tube, EVERY 4 HOURS PRN, Mild Pain, Moderate Pain, Starting on Tue06/28/22 at 0441, Until Tue07/21/22 at 1819, Patient preference for lesser PRN pain meds may be honored when the patient requests a less strong medication, a lower dose, or a less intrusive route of administration when the lesser drug, dose and route have been ordered for the patient. This patient request must be documented in the MAR. $ Given 07/16/2022 11:08 AM AUTOMOTIVE PAINT TECHNICIAN 500 mg G Tu be $ Given 07/15/2022 9:56 PM AUTOMOTIVE PAINT TECHNICIAN 500 mg G Tube $ Given 06/30/2022 2:27 PM AUTOMOTIVE PAINT TECHNICIAN 500 mg G Tube acetaminophen (Tylenol) tablet 650 mg 650 mg, Enteral Tube, NOW, 1 dose, On Tue06/27/22 at 2345, Patient preference for lesser PRN pain meds may be honored when the patient requests a less strong medication, a lower dose, or a less intrusive route of administration when the lesser drug, dose and route have been ordered for the patient. This patient request must be documented in the MAR. $ Given 06/28/2022 12:29 AM AUTOMOTIVE PAINT TECHNICIAN 650 mg G Tu be acetylcysteine (Mucomyst) 20 % solution 2,000 mg 2,000 mg (10 mL), Inhalation, EVERY 6 HOURS, First dose on Tue07/05/22 at 1800, Until Discontinued $ Given 07/05/2022 5:29 PM AUTOMOTIVE PAINT TECHNICIAN 800 mg acetylcysteine (Mucomyst) 20 % solution 600 mg 600 mg (3 mL), Inhalation, EVERY 6 HOURS, First dose (after last modification) on Tue07/06/22 at 0000, Until Discontinued $ Given 07/07/2022 5:12 AM AUTOMOTIVE PAINT TECHNICIAN 600 mg $ Given 07/07/2022 12:33 AM AUTOMOTIVE PAINT TECHNICIAN 600 mg $ Given 07/06/2022 5:54 PM AUTOMOTIVE PAINT TECHNICIAN 600 mg albuterol (Proventil; Ventolin) 0.5% neb solution ADS Med 1 dose, Starting on Tue06/28/22 at 1045, Until Tue06/28/22 at 1048, Created by cabinet override $ Given 06/28/2022 10:48 AM AUTOMOTIVE PAINT TECHNICIAN 5 mg albuterol (Proventil;Ventolin) (5 MG/ML) 0.5% nebulizer solution 2.5 mg 2.5 mg, Inhalation, EVERY 12 HOURS, First dose on Tue07/14/22 at 1215, Until Discontinued $ Given 07/18/2022 8:30 PM AUTOMOTIVE PAINT TECHNICIAN 2.5 mg $ Given 07/18/2022 8:53 AM AUTOMOTIVE PAINT TECHNICIAN 2.5 mg $ Given 07/17/2022 9:58 PM AUTOMOTIVE PAINT TECHNICIAN 2.5 mg albuterol HFA (Proventil; Ventolin; Proair) 108 (90 Base) MCG/ACT inhaler 4 puff 4 puff, Inhalation, EVERY 12 HOURS, First dose (after last modification) on Tue07/19/22 at 0900, Until Discontinued, Shake well before using. WASTE DISPOSAL INSTRUCTION: Send to Pharmacy for Disposal. $ Given 07/21/2022 8:35 AM AUTOMOTIVE PAINT TECHNICIAN 4 puffs $ Given 07/20/2022 9:47 PM AUTOMOTIVE PAINT TECHNICIAN 4 puffs $ Given 07/20/2022 9:12 AM AUTOMOTIVE PAINT TECHNICIAN 4 puffs albuterol-ipratropium (Duo-Neb) nebulizer solution 3 mL 3 mL, Inhalation, EVERY 4 HR WHILE AWAKE, First dose on Tue07/03/22 at 1400, Until Discontinued $ Given 07/05/2022 12:37 PM AUTOMOTIVE PAINT TECHNICIAN 3 mL $ Given 07/05/2022 10:01 AM AUTOMOTIVE PAINT TECHNICIAN 3 mL $ Given 07/05/2022 5:45 AM AUTOMOTIVE PAINT TECHNICIAN 3 mL albuterol-ipratropium (Duo-Neb) nebulizer solution 3 mL 3 mL, Inhalation, EVERY 6 HOURS, First dose (after last modification) on Tue07/05/22 at 1800, Until Discontinued $ Given 07/07/2022 5:12 AM AUTOMOTIVE PAINT TECHNICIAN 3 mL $ Given 07/07/2022 12:34 AM AUTOMOTIVE PAINT TECHNICIAN 3 mL $ Given 07/06/2022 5:54 PM AUTOMOTIVE PAINT TECHNICIAN 3 mL artificial tears ophthalmic ointment Each Eye, EVERY 8 HOURS, First dose on Tue07/05/22 at 2200, Until Discontinued $ Given 07/21/2022 5:23 AM AUTOMOTIVE PAINT TECHNICIAN $ Given 07/20/2022 8:45 PM AUTOMOTIVE PAINT TECHNICIAN $ Given 07/20/2022 3:20 PM AUTOMOTIVE PAINT TECHNICIAN aspirin chew tablet 81 mg 81 mg, Enteral Tube, DAILY, First dose on Tue06/28/22 at 0900, Until Discontinued $ Given 07/21/2022 9:31 AM AUTOMOTIVE PAINT TECHNICIAN 81 mg G Tub e $ Given 07/20/2022 8:30 AM AUTOMOTIVE PAINT TECHNICIAN 81 mg G Tube $ Given 07/19/2022 9:12 AM AUTOMOTIVE PAINT TECHNICIAN 81 mg G Tube atorvastatin (Lipitor) tablet 40 mg 40 mg, Enteral Tube, DAILY, First dose on Tue06/28/22 at 0900, Until Discontinued $ Given 07/21/2022 9:31 AM AUTOMOTIVE PAINT TECHNICIAN 40 mg G Tub e $ Given 07/20/2022 8:30 AM AUTOMOTIVE PAINT TECHNICIAN 40 mg G Tube $ Given 07/19/2022 9:13 AM AUTOMOTIVE PAINT TECHNICIAN 40 mg G Tube azithromycin (Zithromax) 500 mg in 0.9% NaCl IV 250 mL IVPB 500 mg, at 250 mL/hr, Intravenous, EVERY 24 HOURS, 5 doses, First dose on Tue06/27/22 at 2245, Last dose on Marian 07/01/22 at 2245, Indication for anti-infective therapy: Suspected infection, Site of anti-infective therapy: Lower Respiratory $ New Bag/Syringe 06/27/2022 11:40 PM AUTOMOTIVE PAINT TECHNICIAN 500 mg 250 mL/hr cefTRIAXone (Rocephin) 2,000 mg in 0.9% NaCl IV 50 mL IVPB 2,000 mg (2 g), at 100 mL/hr, Intravenous, EVERY 24 HOURS, 7 doses, First dose on Tue06/27/22 at 2245, Last dose on [facility] 07/03/22 at 2245, Ceftriaxone can cause precipitation when administered with calcium-containing fluids, including LR. Flush lines with a compatible fluid, such as D5W or NS before and after ceftriaxone dose. Admin through separate lumens is acceptable. , Indication for anti-infective therapy: Suspected infection, Site of anti-infective therapy: Lower Respiratory $ New Bag/Syringe 06/27/2022 11:02 PM AUTOMOTIVE PAINT TECHNICIAN 2,000 mg 100 mL/hr chlorhexidine (Peridex) 0.12 % oral solution 15 mL 15 mL, Mouth/Throat, 2 TIMES DAILY, First dose on Tue07/05/22 at 2130, Until Discontinued, Swab oral mucosa for 30 seconds. Do not brush teeth immediately after use. . WASTE DISPOSAL INSTRUCTIONS: Black Bin Disposal required. $ Given 07/21/2022 9:30 AM AUTOMOTIVE PAINT TECHNICIAN 15 mL $ Given 07/20/2022 8:31 PM AUTOMOTIVE PAINT TECHNICIAN 15 mL $ Given 07/20/2022 8:30 AM AUTOMOTIVE PAINT TECHNICIAN 15 mL cloBAZam (Onfi) tablet 20 mg 20 mg, Enteral Tube, 2 TIMES DAILY, First dose on Tue06/28/22 at 0900, Until Discontinued $ Given 07/21/2022 9:30 AM AUTOMOTIVE PAINT TECHNICIAN 20 mg G Tube $ Given 07/20/2022 8:31 PM AUTOMOTIVE PAINT TECHNICIAN 20 mg G Tube $ Given 07/20/2022 8:30 AM AUTOMOTIVE PAINT TECHNICIAN 20 mg G Tube dextrose 5 % infusion at 200 mL/hr, Intravenous, CONTINUOUS, Starting on Tue07/05/22 at 1000, Until Tue07/05/22 at 1159 Rate Change 07/05/2022 12:35 PM AUTOMOTIVE PAINT TECHNICIAN 75 mL/hr $ New Bag/Syringe 07/05/2022 10:27 AM AUTOMOTIVE PAINT TECHNICIAN 200 m L/hr dextrose 5 % infusion at 100 mL/hr, Intravenous, CONTINUOUS, Starting on Tue07/05/22 at 1200, Until Tue07/06/22 at 0933 Current Rate 07/06/2022 7:00 AM AUTOMOTIVE PAINT TECHNICIAN 100 mL/hr Current Rate 07/06/2022 6:00 AM AUTOMOTIVE PAINT TECHNICIAN 100 mL/hr Current Rate 07/06/2022 5:00 AM AUTOMOTIVE PAINT TECHNICIAN 100 mL/hr divalproex sprinkle (Depakote Sprinkle) capsule 500 mg 500 mg, Enteral Tube, EVERY 6 HOURS (03,09,15,21), First dose on Tue06/28/22 at 0315, Until Discontinued, Do not crush or chew sprinkle beads. $ Given 07/07/2022 8:12 AM AUTOMOTIVE PAINT TECHNICIAN 500 mg G Tube $ Given 07/07/2022 3:31 AM AUTOMOTIVE PAINT TECHNICIAN 500 mg G Tube $ Given 07/06/2022 8:08 PM AUTOMOTIVE PAINT TECHNICIAN 500 mg G Tube divalproex sprinkle (Depakote Sprinkle) capsule 500 mg 500 mg, Enteral Tube, EVERY 8 HOURS, First dose (after last modification) on Tue07/07/22 at 1400, Until Discontinued, Do not crush or chew sprinkle beads. $ Given 07/07/2022 3:38 PM AUTOMOTIVE PAINT TECHNICIAN 500 mg G Tube divalproex sprinkle (Depakote Sprinkle) capsule 500 mg 500 mg, Enteral Tube, EVERY 6 HOURS (,,,), First dose (after last modification) on Tue07/07/22 at 2100, Until Discontinued, Flush PEG tube with 50 cc of Water after administering the medication Do not crush or chew sprinkle beads. $ Given 07/14/2022 7:41 PM AUTOMOTIVE PAINT TECHNICIAN 500 mg G Tube $ Given 07/14/2022 3:37 PM AUTOMOTIVE PAINT TECHNICIAN 500 mg G Tube $ Given 07/14/2022 8:21 AM AUTOMOTIVE PAINT TECHNICIAN 500 mg G Tube divalproex sprinkle (Depakote Sprinkle) capsule 500 mg 500 mg, Enteral Tube, EVERY 6 HOURS (,,,), First dose on Tue07/16/22 at 1500, Until Discontinued, Do not crush or chew sprinkle beads. $ Given 07/21/2022 2:39 PM AUTOMOTIVE PAINT TECHNICIAN 500 mg G Tube $ Given 07/21/2022 9:30 AM AUTOMOTIVE PAINT TECHNICIAN 500 mg G Tube $ Given 07/21/2022 2:05 AM AUTOMOTIVE PAINT TECHNICIAN 500 mg G Tube enoxaparin (Lovenox) injection 40 mg 40 mg, Subcutaneous, DAILY, First dose (after last modification) on Tue07/12/22 at 1515, Until Discontinued, (for prefilled syringes) do not expel air bubble from the syringe prior to the injection Remind Patient to not rub injection site. Could cause hematoma. $ Given 07/14/2022 8:20 AM AUTOMOTIVE PAINT TECHNICIAN 40 mg Ab dominal Tissue $ Given 07/13/2022 8:23 AM AUTOMOTIVE PAINT TECHNICIAN 40 mg Ab dominal Tissue $ Given 07/12/2022 9:35 PM AUTOMOTIVE PAINT TECHNICIAN 40 mg Ab dominal Tissue enoxaparin (Lovenox) injection 40 mg 40 mg, Subcutaneous, DAILY, First dose on Tue07/16/22 at 0900, Until Discontinued, (for prefilled syringes) do not expel air bubble from the syringe prior to the injection Remind Patient to not rub injection site. Could cause hematoma. $ Given 07/21/2022 9:31 AM AUTOMOTIVE PAINT TECHNICIAN 40 mg Ab dominal Tissue $ Given 07/20/2022 8:30 AM AUTOMOTIVE PAINT TECHNICIAN 40 mg Ab dominal Tissue $ Given 07/19/2022 9:14 AM AUTOMOTIVE PAINT TECHNICIAN 40 mg Ab d Right Lower Quadrant EPINEPHrine-NaCl 0.9% syringe PRN, Starting on Marian 07/15/22 at 0810, Until Tue07/21/22 at 1819, Intra-op $ Given 07/15/2022 8:10 AM AUTOMOTIVE PAINT TECHNICIAN 0.2 mL Ope rative Site etomidate (Amidate) injection 20 mg 20 mg, Intravenous, ONCE, 1 dose, On Tue07/05/22 at 2115 $ Given 07/05/2022 9:26 PM AUTOMOTIVE PAINT TECHNICIAN 20 mg famotidine (Pepcid) tablet 20 mg 20 mg, Enteral Tube, DAILY, First dose on 07/10/22 at 0900, Until Discontinued $ Given 07/21/2022 9:31 AM AUTOMOTIVE PAINT TECHNICIAN 20 mg G Tube $ Given 07/20/2022 8:30 AM AUTOMOTIVE PAINT TECHNICIAN 20 mg G Tube $ Given 07/19/2022 9:12 AM AUTOMOTIVE PAINT TECHNICIAN 20 mg G Tube fentaNYL (PF) (Sublimaze) injection 100 mcg 100 mcg, Intravenous, ONCE, 1 dose, On Tue07/05/22 at 2200, Patient preference for lesser PRN pain meds may be honored when the patient requests a less strong medication, a lower dose, or a less intrusive route of administration when the lesser drug, dose and route have been ordered for the patient. This patient request must be documented in the MAR. $ Given 07/05/2022 9:40 PM AUTOMOTIVE PAINT TECHNICIAN 100 m cg fentaNYL (PF) (Sublimaze) injection 25 mcg 25 mcg, Intravenous, EVERY 1 HOUR PRN, Moderate Pain, Severe Pain, Starting on Tue07/07/22 at 0945, Until Tue07/21/22 at 1819, Patient preference for lesser PRN pain meds may be honored when the patient requests a less strong medication, a lower dose, or a less intrusive route of administration when the lesser drug, dose and route have been ordered for the patient. This patient request must be documented in the MAR. fentaNYL (PF) (Sublimaze) injection 50 mcg 50 mcg, Intravenous, ONCE, 1 dose, On Tue07/04/22 at 1230, Patient preference for lesser PRN pain meds may be honored when the patient requests a less strong medication, a lower dose, or a less intrusive route of administration when the lesser drug, dose and route have been ordered for the patient. This patient request must be documented in the MAR. $ Given 07/04/2022 12:20 PM AUTOMOTIVE PAINT TECHNICIAN 50 m cg fentaNYL (Sublimaze) injection 0.05 mg/mL ADS Med 1 dose, Starting on Tue07/04/22 at 1159, Until Tue07/04/22 at 1220, Created by cabinet override Patient preference for lesser PRN pain meds may be honored when the patient requests a less strong medication, a lower dose, or a less intrusive route of administration when the lesser drug, dose and route have been ordered for the patient. This patient request must be documented in the MAR. fluticasone propionate (Flonase) nasal spray 1 spray 1 spray, Each Nostril, DAILY, First dose on Tue06/28/22 at 0900, Until Discontinued, Shake gently before use. $ Given 07/08/2022 8:38 AM AUTOMOTIVE PAINT TECHNICIAN 1 spr ay $ Given 07/07/2022 8:25 AM AUTOMOTIVE PAINT TECHNICIAN 1 spray $ Given 07/05/2022 8:56 AM AUTOMOTIVE PAINT TECHNICIAN 1 spray folic acid (Folvite) tablet 1 mg 1 mg, Enteral Tube, DAILY, First dose on Tue06/28/22 at 0900, Until Discontinued $ Given 07/06/2022 8:01 AM AUTOMOTIVE PAINT TECHNICIAN 1 mg G Tube $ Given 07/05/2022 8:29 AM AUTOMOTIVE PAINT TECHNICIAN 1 mg G Tube $ Given 07/04/2022 9:06 AM AUTOMOTIVE PAINT TECHNICIAN 1 mg G Tube heparin injection 5,000 Units 5,000 Units, Subcutaneous, 3 TIMES DAILY, First dose on Tue06/28/22 at 0900, Until Discontinued $ Given 07/12/2022 1:15 PM AUTOMOTIVE PAINT TECHNICIAN 5,000 Units Abdominal Tissue $ Given 07/12/2022 9:10 AM AUTOMOTIVE PAINT TECHNICIAN 5,000 Units A bdominal Tissue $ Given 07/11/2022 9:29 PM AUTOMOTIVE PAINT TECHNICIAN 5,000 Units A bdominal Tissue iopamidol (Isovue 370) 76 % contrast Intravenous, CONTRAST ONCE, Starting on Tue06/28/22 at 0051, Until Tue06/28/22 at 0343 $ Given - Contrast 06/28/2022 12:51 AM AUTOMOTIVE PAINT TECHNICIAN 100 mL labetalol (Normodyne; Trandate) injection 20 mg 20 mg, Intravenous, ONCE, 1 dose, On Tue07/05/22 at 1930, Max IV dose is 300mg/24 hours. $ Given 07/05/2022 8:26 PM AUTOMOTIVE PAINT TECHNICIAN 20 mg lacosamide (Vimpat) injection 200 mg 200 mg, Intravenous, 2 TIMES DAILY, First dose (after last modification) on Marian 07/15/22 at 0930, Until Discontinued, Doses up to 400 mg may be administered undiluted at less than 80 mg/min (400 mg over 5 min) $ Given 07/16/2022 8:22 AM AUTOMOTIVE PAINT TECHNICIAN 200 mg $ Given 07/15/2022 9:38 PM AUTOMOTIVE PAINT TECHNICIAN 200 mg $ Given 07/15/2022 12:02 PM AUTOMOTIVE PAINT TECHNICIAN 200 mg lacosamide (Vimpat) tablet 200 mg 200 mg, Enteral Tube, 2 TIMES DAILY, First dose on Tue06/28/22 at 0900, Until Discontinued $ Given 07/14/2022 7:41 PM AUTOMOTIVE PAINT TECHNICIAN 200 mg G Tube $ Given 07/14/2022 8:21 AM AUTOMOTIVE PAINT TECHNICIAN 200 mg G Tube $ Given 07/13/2022 7:49 PM AUTOMOTIVE PAINT TECHNICIAN 200 mg G Tube lacosamide (Vimpat) tablet 200 mg 200 mg, Enteral Tube, 2 TIMES DAILY, First dose on Tue07/16/22 at 2100, Until Discontinued $ Given 07/21/2022 9:31 AM AUTOMOTIVE PAINT TECHNICIAN 200 mg G Tube $ Given 07/20/2022 8:31 PM AUTOMOTIVE PAINT TECHNICIAN 200 mg G Tube $ Given 07/20/2022 8:31 AM AUTOMOTIVE PAINT TECHNICIAN 200 mg G Tube lactated ringers infusion at 50 mL/hr, Intravenous, CONTINUOUS, Starting on Tue06/28/22 at 0530, Until Tue07/02/22 at 0800 $ New Bag/Syringe 07/02/2022 7:04 AM AUTOMOTIVE PAINT TECHNICIAN 50 mL/hr $ New Bag/Syringe 07/01/2022 11:25 AM AUTOMOTIVE PAINT TECHNICIAN 50 mL /hr $ New Bag/Syringe 07/01/2022 1:20 AM AUTOMOTIVE PAINT TECHNICIAN 100 mL /hr lactated ringers infusion at 75 mL/hr, Intravenous, CONTINUOUS, Starting on Tue07/03/22 at 2130, Until Tue07/05/22 at 0928 $ New Bag/Syringe 07/05/2022 12:36 AM AUTOMOTIVE PAINT TECHNICIAN 75 mL/hr Current Rate 07/04/2022 5:32 PM AUTOMOTIVE PAINT TECHNICIAN 75 mL/hr Current Rate 07/04/2022 4:14 PM AUTOMOTIVE PAINT TECHNICIAN 75 mL/hr lactated ringers infusion at 50 mL/hr, Intravenous, CONTINUOUS, Starting on Tue07/15/22 at 0230, Until Tue07/15/22 at 0815 $ New Bag/Syringe 07/15/2022 2:09 AM AUTOMOTIVE PAINT TECHNICIAN 50 mL/hr lactated ringers IV bolus 1,000 mL, at 1,935.48 mL/hr, Administer over 31 Minutes, ONCE, 1 dose, On Tue06/27/22 at 2200 $ New Bag/Syringe 06/27/2022 10:24 PM AUTOMOTIVE PAINT TECHNICIAN 1,000 mL 1935.48 mL/hr lactated ringers IV bolus 500 mL, at 247.93 mL/hr, Administer over 121 Minutes, ONCE, 1 dose, On Tue07/16/22 at 0145 Current Rate 07/16/2022 3:00 AM AUTOMOTIVE PAINT TECHNICIAN 247.93 mL/hr Current Rate 07/16/2022 2:00 AM AUTOMOTIVE PAINT TECHNICIAN 247.93 mL/h r $ New Bag/Syringe 07/16/2022 1:56 AM AUTOMOTIVE PAINT TECHNICIAN 500 mL 247.93 mL/hr lactated ringers IV bolus 500 mL, at 1,875 mL/hr, Administer over 16 Minutes, ONCE, 1 dose, On Tue07/16/22 at 1630 $ New Bag/Syringe 07/16/2022 4:17 PM AUTOMOTIVE PAINT TECHNICIAN 500 mL 1875 mL/hr levETIRAcetam (Keppra) 500 mg in 100 mL IVPB 500 mg, at 400 mL/hr, Intravenous, EVERY 12 HOURS, First dose (after last modification) on Tue07/15/22 at 0930, Until Discontinued $ New Bag/Syringe 07/16/2022 8:26 AM AUTOMOTIVE PAINT TECHNICIAN 500 mg 400 mL/hr $ New Bag/Syringe 07/15/2022 9:43 PM AUTOMOTIVE PAINT TECHNICIAN 500 mg 400 mL /hr $ New Bag/Syringe 07/15/2022 12:09 PM AUTOMOTIVE PAINT TECHNICIAN 500 mg 400 m L/hr levETIRAcetam (Keppra) tablet 1,000 mg 1,000 mg, Enteral Tube, 2 TIMES DAILY, First dose on Tue07/16/22 at 2100, Until Discontinued, Do not crush or chew because of TASTE only. $ Given 07/21/2022 9:31 AM AUTOMOTIVE PAINT TECHNICIAN 1,000 m g G Tube $ Given 07/20/2022 8:31 PM AUTOMOTIVE PAINT TECHNICIAN 1,000 mg G Tube $ Given 07/20/2022 8:30 AM AUTOMOTIVE PAINT TECHNICIAN 1,000 mg G Tube levETIRAcetam (Keppra) tablet 2,000 mg 2,000 mg, Enteral Tube, 2 TIMES DAILY, First dose on Tue06/28/22 at 0900, Until Discontinued, Do not crush or chew because of TASTE only. $ Given 07/06/2022 7:59 AM AUTOMOTIVE PAINT TECHNICIAN 2,000 m g G Tube $ Given 07/05/2022 8:25 PM AUTOMOTIVE PAINT TECHNICIAN 2,000 mg G Tube $ Given 07/05/2022 8:32 AM AUTOMOTIVE PAINT TECHNICIAN 2,000 mg G Tube levETIRAcetam (Keppra) tablet 500 mg 500 mg, Enteral Tube, 2 TIMES DAILY, First dose on Tue07/06/22 at 2100, Until Discontinued, Do not crush or chew because of TASTE only. $ Given 07/14/2022 7:41 PM AUTOMOTIVE PAINT TECHNICIAN 500 mg G Tube $ Given 07/14/2022 8:20 AM AUTOMOTIVE PAINT TECHNICIAN 500 mg G Tube $ Given 07/13/2022 7:49 PM AUTOMOTIVE PAINT TECHNICIAN 500 mg G Tube levoFLOXacin (Levaquin) 750 mg in 150 mL IVPB 750 mg, at 100 mL/hr, Intravenous, EVERY 24 HOURS, 7 doses, First dose on Tue06/28/22 at 0415, Last dose on Tue07/04/22 at 0415, Indication for anti-infective therapy: Documented infection, Site of anti-infective therapy: Lower Respiratory $ New Bag/Syringe 06/28/2022 5:38 AM AUTOMOTIVE PAINT TECHNICIAN 750 mg 100 mL/hr lidocaine (Xylocaine PF) 1% injection ADS Med 1 dose, Starting on Tue07/04/22 at 1100, Until Tue07/04/22 at 1128, Created by cabinet override lidocaine 1% (Xylocaine-MPF) - EPINEPHrine 1:100,000 injection PRN, Starting on Marian 07/15/22 at 0810, Until Tue07/21/22 at 1819, Intra-op $ Given 07/15/2022 8:10 AM AUTOMOTIVE PAINT TECHNICIAN 5 mL Operative Site lidocaine PF (Xylocaine MPF) 1 % injection 20 mL 20 mL, Nebulization, ONCE, 1 dose, On Tue07/04/22 at 1130 $ Given 07/04/2022 11:28 AM AUTOMOTIVE PAINT TECHNICIAN 300 mg LORazepam (Ativan) injection 2 mg 2 mg, Intravenous, ONCE, 1 dose, On Tue07/06/22 at 1115 $ Given 07/06/2022 10:54 AM AUTOMOTIVE PAINT TECHNICIAN 2 mg LORazepam (Ativan) injection ADS Med 1 dose, Starting on Tue07/06/22 at 1050, Until Tue07/06/22 at 1054, Created by cabinet override midazolam (Versed) 1 mg/mL injection ADS Med 1 dose, Starting on Tue07/04/22 at 1159, Until Tue07/04/22 at 1201, Created by cabinet override midazolam (Versed) injection 1 mg 1 mg, Intravenous, PRE-OP ONCE, 1 dose, On Tue07/04/22 at 1300, Already given during procedure $ Given 07/04/2022 12:01 PM AUTOMOTIVE PAINT TECHNICIAN 1 mg midazolam (Versed) injection 2 mg 2 mg, Intravenous, PRE-OP ONCE, 1 dose, On Tue07/04/22 at 1215 $ Given 07/04/2022 12:01 PM AUTOMOTIVE PAINT TECHNICIAN 2 mg oxybutynin (Ditropan) tablet 5 mg 5 mg, Enteral Tube, 2 TIMES DAILY, First dose on Tue07/07/22 at 1030, Until Discontinued $ Given 07/21/2022 9:31 AM AUTOMOTIVE PAINT TECHNICIAN 5 mg G Tube $ Given 07/20/2022 8:31 PM AUTOMOTIVE PAINT TECHNICIAN 5 mg G Tube $ Given 07/20/2022 8:30 AM AUTOMOTIVE PAINT TECHNICIAN 5 mg G Tube pantoprazole (Protonix) injection 40 mg 40 mg, Intravenous, DAILY, First dose on Tue07/04/22 at 1000, Until Discontinued, For every 40 mg of pantoprazole mix with 10 mL Normal Saline (final concentration = 4 mg/mL). Inject SLOWLY over 2 min. $ Given 07/07/2022 8:25 AM AUTOMOTIVE PAINT TECHNICIAN 40 mg $ Given 07/06/2022 8:01 AM AUTOMOTIVE PAINT TECHNICIAN 40 mg $ Given 07/05/2022 8:44 AM AUTOMOTIVE PAINT TECHNICIAN 40 mg pantoprazole (Protonix) packet 40 mg 40 mg, Enteral Tube, DAILY, First dose on Tue07/08/22 at 0900, Until Discontinued, Mix contents of packet in 1 teaspoonful (5 mls) of apple juice or applesauce and ingest (within 10 minutes after mixing with applesauce or after stirring with applejuice for 5 seconds) $ Given 07/09/2022 8:11 AM AUTOMOTIVE PAINT TECHNICIAN 40 mg G Tub e $ Given 07/08/2022 8:38 AM AUTOMOTIVE PAINT TECHNICIAN 40 mg OG Tube piperacillin - tazobactam (Zosyn) 3.375 g in 0.9% NaCl IV 55 mL IVPB 3.375 g, at 110 mL/hr, Intravenous, Once, 1 dose, On Tue06/28/22 at 0400, Infuse only initial dose of piperacillin-tazobactam over 30 min. Subsequent doses start 6 hours after initial dose and infused over 4 hours., Indication for anti-infective therapy: Documented infection, Site of anti-infective therapy: Lower Respiratory $ New Bag/Syringe 06/28/2022 4:45 AM AUTOMOTIVE PAINT TECHNICIAN 3.375 g 110 mL/hr piperacillin - tazobactam (Zosyn) 3.375 g in 0.9% NaCl IV 55 mL IVPB 3.375 g, at 13.75 mL/hr, Intravenous, EVERY 8 HOURS, 21 doses, First dose (after last modification) on Tue06/28/22 at 1000, Last dose on Tue07/05/22 at 0200, Indication for anti-infective therapy: Documented infection, Site of anti-infective therapy: Lower Respiratory $ New Bag/Syringe 07/05/2022 2:19 AM AUTOMOTIVE PAINT TECHNICIAN 3.375 g 13.75 mL/hr Current Rate 07/04/2022 5:32 PM AUTOMOTIVE PAINT TECHNICIAN 13.75 mL/hr $ New Bag/Syringe 07/04/2022 5:26 PM AUTOMOTIVE PAINT TECHNICIAN 3.375 g 13.75 mL/hr polyethylene glycol 3350 (Miralax) packet 17 g 17 g, Enteral Tube, DAILY, First dose on Tue06/28/22 at 0900, Until Discontinued, Mix in 8 ounces of water, juice, soda, coffee or tea prior to administration $ Given 07/21/2022 9:31 AM AUTOMOTIVE PAINT TECHNICIAN 17 g G Tube $ Given 07/20/2022 8:30 AM AUTOMOTIVE PAINT TECHNICIAN 17 g G Tube $ Given 07/19/2022 9:14 AM AUTOMOTIVE PAINT TECHNICIAN 17 g G Tube potassium chloride (Klor-Con) packet 40 mEq 40 mEq, Enteral Tube, ONCE, 1 dose, On Tue07/06/22 at 0445, DISSOLVE IN 120 ML OF COLD WATER OR JUICE AND DRINK SLOWLY $ Given 07/06/2022 5:03 AM AUTOMOTIVE PAINT TECHNICIAN 40 mEq G Tube potassium chloride (Klor-Con) packet 40 mEq 40 mEq, Enteral Tube, ONCE, 1 dose, On Tue07/06/22 at 1000, DISSOLVE IN 120 ML OF COLD WATER OR JUICE AND DRINK SLOWLY $ Given 07/06/2022 10:34 AM AUTOMOTIVE PAINT TECHNICIAN 40 mEq G Tube potassium chloride 40 mEq in 270 mL bolus 40 mEq, at 67.5 mL/hr, Administer over 4 Hours, Intravenous, ONCE, 1 dose, On Tue07/06/22 at 0445 Current Rate 07/06/2022 7:00 AM AUTOMOTIVE PAINT TECHNICIAN 67.5 mL/hr Current Rate 07/06/2022 6:00 AM AUTOMOTIVE PAINT TECHNICIAN 67.5 mL/hr $ New Bag/Syringe 07/06/2022 5:03 AM AUTOMOTIVE PAINT TECHNICIAN 40 mEq 67.5 m L/hr potassium phosphate 30 mmol in d5w 260 mL bolus premix 30 mmol, at 43.33 mL/hr, Administer over 6 Hours, Intravenous, ONCE, 1 dose, On Tue07/16/22 at 0815, 3 mmol phosphate = 4.4 mEq potassium Rate Change 07/16/2022 8:48 AM AUTOMOTIVE PAINT TECHNICIAN 43.33 mL/hr $ New Bag/Syringe 07/16/2022 8:48 AM AUTOMOTIVE PAINT TECHNICIAN 30 mmol 43.33 mL/hr propofol (Diprivan) infusion 0-50 mcg/kg/min ? 59 kg (0-17.7 mL/hr), Intravenous, CONTINUOUS, Starting on Tue07/05/22 at 2130, Until Tue07/07/22 at 0945, Above RASS goal: Assess and treat pain [...] max dose, Titration Priority: 1st Rate Change 07/06/2022 8:52 AM AUTOMOTIVE PAINT TECHNICIAN 10 mcg/kg/min 3.54 mL/hr $ New Bag/Syringe 07/06/2022 7:58 AM AUTOMOTIVE PAINT TECHNICIAN 20 mcg/kg/min 7.0 8 mL/hr Current Rate 07/06/2022 7:00 AM AUTOMOTIVE PAINT TECHNICIAN 20 mcg/kg/min 7.08 mL/ hr rocuronium (Zemuron) injection 60 mg 60 mg, Intravenous, ONCE, 1 dose, On Tue07/05/22 at 2115 $ Given 07/05/2022 9:27 PM AUTOMOTIVE PAINT TECHNICIAN 60 mg senna-docusate (Senokot-S) tablet 1 tablet 1 tablet, Enteral Tube, 2 TIMES DAILY, First dose on Tue07/16/22 at 1045, Until Discontinued $ Given 07/21/2022 9:31 AM AUTOMOTIVE PAINT TECHNICIAN 1 tablet G Tube $ Given 07/20/2022 8:31 PM AUTOMOTIVE PAINT TECHNICIAN 1 tablet G Tube $ Given 07/20/2022 8:30 AM AUTOMOTIVE PAINT TECHNICIAN 1 tablet G Tube sodium chloride (Inhalant) 7 % nebulizer solution 4 mL 4 mL, Inhalation, DAILY, 3 doses, First dose on Tue06/28/22 at 0900, Last dose on Tue06/30/22 at 0900, With Sputum Induction $ Given 06/30/2022 8:32 AM AUTOMOTIVE PAINT TECHNICIAN 4 mL $ Given 06/29/2022 9:04 AM AUTOMOTIVE PAINT TECHNICIAN 4 mL $ Given 06/28/2022 10:38 AM AUTOMOTIVE PAINT TECHNICIAN 4 mL sodium chloride (Inhalant) 7 % nebulizer solution 4 mL 4 mL, Inhalation, 2 TIMES DAILY, First dose on Tue07/05/22 at 1000, Until Discontinued $ Given 07/07/2022 12:34 AM AUTOMOTIVE PAINT TECHNICIAN 4 mL $ Given 07/06/2022 12:17 PM AUTOMOTIVE PAINT TECHNICIAN 4 mL $ Given 07/05/2022 8:49 PM AUTOMOTIVE PAINT TECHNICIAN 4 mL sodium chloride (Inhalant) 7 % nebulizer solution 4 mL 4 mL, Inhalation, 2 TIMES DAILY, First dose on Tue07/14/22 at 1215, Until Discontinued $ Given 07/21/2022 8:35 AM AUTOMOTIVE PAINT TECHNICIAN 4 mL $ Given 07/20/2022 9:47 PM AUTOMOTIVE PAINT TECHNICIAN 4 mL $ Given 07/20/2022 9:12 AM AUTOMOTIVE PAINT TECHNICIAN 4 mL sodium zirconium cyclosilicate (Lokelma) packet 10 g 10 g, Oral, 2 TIMES DAILY, First dose on Tue07/11/22 at 0930, Until Discontinued, Administer other oral meds at least 2 hours before or 2 hours after $ Given 07/12/2022 9:11 AM AUTOMOTIVE PAINT TECHNICIAN 10 g $ Given 07/11/2022 9:29 PM AUTOMOTIVE PAINT TECHNICIAN 10 g $ Given 07/11/2022 10:20 AM AUTOMOTIVE PAINT TECHNICIAN 10 g tamsulosin (Flomax) capsule 0.4 mg 0.4 mg, Oral, DAILY, First dose on Tue06/28/22 at 0900, Until Discontinued, At the same time every day after a meal. Give by enteral tube Do not crush, chew $ Given 07/21/2022 9:36 AM AUTOMOTIVE PAINT TECHNICIAN 0.4 mg $ Given 07/20/2022 8:30 AM AUTOMOTIVE PAINT TECHNICIAN 0.4 mg $ Given 07/19/2022 9:13 AM AUTOMOTIVE PAINT TECHNICIAN 0.4 mg thiamine (Vitamin B-1) tablet 100 mg 100 mg, Enteral Tube, DAILY, First dose on Tue06/28/22 at 0900, Until Discontinued $ Given 07/06/2022 8:00 AM AUTOMOTIVE PAINT TECHNICIAN 100 mg G Tub e $ Given 07/05/2022 8:30 AM AUTOMOTIVE PAINT TECHNICIAN 100 mg G Tube $ Given 07/04/2022 9:06 AM AUTOMOTIVE PAINT TECHNICIAN 100 mg G Tube valproate (Depacon) 500 mg in 0.9% NaCl IV 55 mL IVPB 500 mg, at 110 mL/hr, Intravenous, EVERY 6 HOURS (03,09,15,21), First dose on Tue07/15/22 at 0300, Until Discontinued $ New Bag/Syringe 07/16/2022 8:35 AM AUTOMOTIVE PAINT TECHNICIAN 500 mg 110 mL/hr Current Rate 07/16/2022 3:53 AM AUTOMOTIVE PAINT TECHNICIAN 110 mL/hr $ New Bag/Syringe 07/16/2022 3:22 AM AUTOMOTIVE PAINT TECHNICIAN 500 mg 110 mL /hr vancomycin (Vancocin) 1,000 mg in 0.9% NaCl IV 250 mL IVPB 1,000 mg, at 250 mL/hr, Intravenous, EVERY 8 HOURS, First dose (after last modification) on Tue06/30/22 at 0830, Until Discontinued, Indication for anti-infective therapy: Suspected infection, Site of anti-infective therapy: Lower Respiratory $ New Bag/Syringe 07/01/2022 4:52 PM AUTOMOTIVE PAINT TECHNICIAN 1,000 mg 250 mL/hr $ New Bag/Syringe 07/01/2022 8:51 AM AUTOMOTIVE PAINT TECHNICIAN 1,000 mg 250 mL /hr $ New Bag/Syringe 07/01/2022 1:14 AM AUTOMOTIVE PAINT TECHNICIAN 1,000 mg 250 mL /hr vancomycin (Vancocin) 1,250 mg in 250 mL NaCl IVPB Premix 1,250 mg, at 200 mL/hr, Intravenous, ONCE, 1 dose, On Tue06/28/22 at 0500, Indication for anti-infective therapy: Suspected infection, Site of anti-infective therapy: Lower Respiratory $ New Bag/Syringe 06/28/2022 7:25 AM AUTOMOTIVE PAINT TECHNICIAN 1,250 mg 200 mL/hr vancomycin (Vancocin) 750 mg in 0.9% NaCl IV 250 mL IVPB 750 mg, at 333.33 mL/hr, Intravenous, EVERY 12 HOURS, 14 doses, First dose on Tue06/28/22 at 2000, Last dose on Tue07/05/22 at 0800, Indication for anti-infective therapy: Suspected infection, Site of anti-infective therapy: Lower Respiratory $ New Bag/Syringe 06/29/2022 10:06 PM AUTOMOTIVE PAINT TECHNICIAN 750 mg 333.33 mL/hr $ New Bag/Syringe 06/29/2022 9:29 AM AUTOMOTIVE PAINT TECHNICIAN 750 mg 333.33 mL/hr $ New Bag/Syringe 06/28/2022 10:03 PM AUTOMOTIVE PAINT TECHNICIAN 750 mg 333.3 3 mL/hr documented in this encounter Active and Recently Administered Medications Times are shown in AUTOMOTIVE PAINT TECHNICIAN. Scheduled Medication Order 07/19/2022 07/20/2022 07/21/2022 0.9% NaCl injection 3 mL(Linked Group 1) 3 mL, Intracatheter, EVERY 8 HOURS, First dose on Tue06/28/22 at 0600, Until Discontinued, Flush peripheral IV catheter with 3 mL of normal saline every 8 hours. 0411 ($ Given - Provider: Susan Good RN)1418 ($ Given - Provider: Timothy Kline, ALFRED)2147 ($ Given - Provider: Viri Olson, ALFRED) 0506 ($ Given - Provider: Viri Olson, RN)1521 ($ Given - Provider: Kaye Xie RN)2046 ($ Given - Provider: Viri Olson, RN) 0523 ($ Given - Provider: Tonja Ramirez RN)1433 (Not Administered - Provider: Jaden Padilla RN - Reason: Loss of Access) albuterol HFA (Proventil; Ventolin; Proair) 108 (90 Base) MCG/ACT inhaler 4 puff (CANCELED) 4 puff, Inhalation, EVERY 12 HOURS, First dose (after last modification) on Tue07/19/22 at 0900, Until Discontinued, Shake well before using. WASTE DISPOSAL INSTRUCTION: Send to Pharmacy for Disposal. 0930 ($ Given - Provider: Roz Jean RCP)2107 ($ Given - Provider: Coni Todd RCP) 0912 ($ Given - Provider: Roz Jean RCP)2147 ($ Given - Provider: Coni Todd RCP) 0835 ($ Given - Provider: Lindsay Herrera RCP) artificial tears ophthalmic ointment Each Eye, EVERY 8 HOURS, First dose on Tue07/05/22 at 2200, Until Discontinued 0411 (Not Administered - Provider: Susan Good RN - Reason: Patient sleeping)1418 ($ Given - Provider: Timothy Kline RN)2148 ($ Given - Provider: Viri Olson RN) 0506 ($ Given - Provider: Viri Olson RN)1520 ($ Given - Provider: Kaye Xie RN)2045 ($ Given - Provider: Viri Olson RN) 0523 ($ Given - Provider: Tonja Ramirez RN)1439 (Not Administered - Provider: Jaden Padilla RN - Reason: See Comments - Comment: No longer on mechanical ventilation) aspirin chew tablet 81 mg 81 mg, Enteral Tube, DAILY, First dose on Tue06/28/22 at 0900, Until Discontinued 09 ($ Given - Provider: Timothy Kline RN) 0830 ($ Given - Provider: Meeta Trujillo, ALFRED) 0931 ($ Given - Provider: Crystal Schaefer RN) atorvastatin (Lipitor) tablet 40 mg 40 mg, Enteral Tube, DAILY, First dose on Tue06/28/22 at 0900, Until Discontinued 09 ($ Given - Provider: Timothy Kline RN) 0830 ($ Given - Provider: Meeta Trujillo RN) 0931 ($ Given - Provider: Crystal Schaefer, ALFRED) chlorhexidine (Peridex) 0.12 % oral solution 15 mL 15 mL, Mouth/Throat, 2 TIMES DAILY, First dose on Tue07/05/22 at 2130, Until Discontinued, Swab oral mucosa for 30 seconds. Do not brush teeth immediately after use. . WASTE DISPOSAL INSTRUCTIONS: Black Bin Disposal required. 09 ($ Given - Provider: Timothy lKine RN)2147 ($ Given - Provider: Viri Olson RN) 0830 ($ Given - Provider: Meeta Trujillo, ALFRED)2030 ($ Given - Provider: Viri Olson, ALFRED) 0930 ($ Given - Provider: Crystal Schaefer, ALFRED) cloBAZam (Onfi) tablet 20 mg 20 mg, Enteral Tube, 2 TIMES DAILY, First dose on Tue06/28/22 at 0900, Until Discontinued 912 ($ Given - Provider: Timothy Kline RN)2146 ($ Given - Provider: Viri Olson RN) 0830 ($ Given - Provider: Meeta Trujillo, ALFRED)2030 ($ Given - Provider: Viri Olson RN) 0930 ($ Given - Provider: Crystal Schaefer, ALFRED) divalproex sprinkle (Depakote Sprinkle) capsule 500 mg 500 mg, Enteral Tube, EVERY 6 HOURS (03,09,15,21), First dose on Tue07/16/22 at 1500, Until Discontinued, Do not crush or chew sprinkle beads. 0320 ($ Given - Provider: Susan Good RN)0923 ($ Given - Provider: Timothy Kline RN)1418 ($ Given - Provider: Timothy Kline, ALFRED) 0010 (Not Administered - Provider: Viri Olson RN - Reason: Medication not available)0241 ($ Given - Provider: Viri Olson RN)1009 ($ Given - Provider: Meeta Trujillo, ALFRED)1520 ($ Given - Provider: Kaye Xie RN)2030 ($ Given - Provider: Viri Olson, ALFRED) 0205 ($ Given - Provider: Viri Olson RN)0930 ($ Given - Provider: Crystal Schaefer, ALFRED)1439 ($ Given - Provider: Jaden Padilla, ALFRED) enoxaparin (Lovenox) injection 40 mg 40 mg, Subcutaneous, DAILY, First dose on Tue07/16/22 at 0900, Until Discontinued, (for prefilled syringes) do not expel air bubble from the syringe prior to the injection Remind Patient to not rub injection site. Could cause hematoma. 0914 ($ Given - Provider: Timothy Kline RN) 08 ($ Given - Provider: Meeta Trujillo, ALFRED) 0931 ($ Given - Provider: Crystal Schaefer, ALFRED) famotidine (Pepcid) tablet 20 mg 20 mg, Enteral Tube, DAILY, First dose on Tue07/10/22 at 0900, Until Discontinued 911 ($ Given - Provider: Timothy Kline RN) 829 ($ Given - Provider: Meeta Trujillo RN) 0931 ($ Given - Provider: Crystal Schaefer RN) lacosamide (Vimpat) tablet 200 mg 200 mg, Enteral Tube, 2 TIMES DAILY, First dose on Tue07/16/22 at 2100, Until Discontinued 913 ($ Given - Provider: Timothy Kline RN)2146 ($ Given - Provider: Viri Olson RN) 08 ($ Given - Provider: Meeta Trujillo, ALFRED)2030 ($ Given - Provider: Vrii Olson, ALFRED) 0931 ($ Given - Provider: Crystal Schaefer, ALFRED) levETIRAcetam (Keppra) tablet 1,000 mg 1,000 mg, Enteral Tube, 2 TIMES DAILY, First dose on Tue07/16/22 at 2100, Until Discontinued, Do not crush or chew because of TASTE only. 09 ($ Given - Provider: Timothy Kline RN)2146 ($ Given - Provider: Viri Olson RN) 08 ($ Given - Provider: Meeta Trujillo, ALFRED)2030 ($ Given - Provider: Viri Olson, ALFRED) 0931 ($ Given - Provider: Crystal Schaefer RN) oxybutynin (Ditropan) tablet 5 mg 5 mg, Enteral Tube, 2 TIMES DAILY, First dose on Tue07/07/22 at 1030, Until Discontinued 912 ($ Given - Provider: Timothy Kline RN)2146 ($ Given - Provider: Viri Olson RN) 829 ($ Given - Provider: Meeta Trujillo RN)2030 ($ Given - Provider: Viri Olson, ALFRED) 0931 ($ Given - Provider: Crystal Schaefer, ALFRED) polyethylene glycol 3350 (Miralax) packet 17 g 17 g, Enteral Tube, DAILY, First dose on Tue06/28/22 at 0900, Until Discontinued, Mix in 8 ounces of water, juice, soda, coffee or tea prior to administration 0914 ($ Given - Provider: Timothy Kline RN) 08 ($ Given - Provider: Meeta Trujillo RN) 0931 ($ Given - Provider: Crystal Schaefer, ALFRED) senna-docusate (Senokot-S) tablet 1 tablet 1 tablet, Enteral Tube, 2 TIMES DAILY, First dose on Tue07/16/22 at 1045, Until Discontinued 912 ($ Given - Provider: Timothy Kline RN)2147 ($ Given - Provider: Viri Olson RN) 829 ($ Given - Provider: Meeta Trujillo RN)2030 ($ Given - Provider: Viri Olson RN) 0931 ($ Given - Provider: Crystal Schaefer, ALFRED) sodium chloride (Inhalant) 7 % nebulizer solution 4 mL 4 mL, Inhalation, 2 TIMES DAILY, First dose on Tue07/14/22 at 1215, Until Discontinued 929 ($ Given - Provider: Roz Jean RCP)2106 ($ Given - Provider: Coni Todd RCP) 09 ($ Given - Provider: Roz Jean RCP)2146 ($ Given - Provider: Coni Todd RCP) 0835 ($ Given - Provider: Lindsay Herrera RCP) tamsulosin (Flomax) capsule 0.4 mg 0.4 mg, Oral, DAILY, First dose on Tue06/28/22 at 0900, Until Discontinued, At the same time every day after a meal. Give by enteral tube Do not crush, chew 0913 ($ Given - Provider: Timothy Kline RN - Comment: pharm approved to give through g tube) 0830 ($ Given - Provider: Meeta Trujillo, ALFRED) 0936 ($ Given - Provider: Crystal Schaefer RN) PRN Medication Order 07/19/2022 07/20/2022 07/21/2022 0.9% NaCl injection 1-10 mL(Linked Group 1) 1-10 mL, Intracatheter, PRN, Other, peripheral line flush, Starting on Tue06/28/22 at 0256, Until Tue07/21/22 at 181, Flush peripheral IV catheter with 1-10 mL of normal saline before and after medications and prn to clear blood from the line or to verify patency. acetaminophen (Tylenol) tablet 500 mg 500 mg, Enteral Tube, EVERY 4 HOURS PRN, Mild Pain, Moderate Pain, Starting on Tue06/28/22 at 0441, Until Tue07/21/22 at 181, Patient preference for lesser PRN pain meds may be honored when the patient requests a less strong medication, a lower dose, or a less intrusive route of administration when the lesser drug, dose and route have been ordered for the patient. This patient request must be documented in the MAR. artificial tears ophthalmic solution 1 drop 1 drop, Each Eye, 3 TIMES DAILY PRN, Dry Eyes, Starting on Tue06/28/22 at 0346, Until Tue07/21/22 at 181 bisacodyl (Dulcolax) suppository 10 mg 10 mg, Rectal, DAILY PRN, Constipation, Starting on Tue06/28/22 at 0305, Until Tue07/21/22 at 181 EPINEPHrine-NaCl 0.9% syringe PRN, Starting on Marian 07/15/22 at 0810, Until Tue07/21/22 at 181, Intra-op fentaNYL (PF) (Sublimaze) injection 25 mcg 25 mcg, Intravenous, EVERY 1 HOUR PRN, Moderate Pain, Severe Pain, Starting on Tue07/07/22 at 0945, Until Tue07/21/22 at 181, Patient preference for lesser PRN pain meds may be honored when the patient requests a less strong medication, a lower dose, or a less intrusive route of administration when the lesser drug, dose and route have been ordered for the patient. This patient request must be documented in the MAR. lidocaine 1% (Xylocaine-MPF) - EPINEPHrine 1:100,000 injection PRN, Starting on Marian 07/15/22 at 0810, Until 07/21/22 at 1819, Intra-op Linked Groups Order Group 1: SALINE LOCK, INSERT AND MAINTAIN (CANCELED) Routine, CONTINUOUS, Starting on Tue06/28/22 at 0300, Until Specified, New collection, Task Completed: Yes And 0.9% NaCl injection 3 mLJump to med 3 mL, Intracatheter, EVERY 8 HOURS, First dose on Tue06/28/22 at 0600, Until Discontinued, Flush peripheral IV catheter with 3 mL of normal saline every 8 hours. And 0.9% NaCl injection 1-10 mLJump to med 1-10 mL, Intracatheter, PRN, Other, peripheral line flush, Starting on Tue06/28/22 at 0256, Until Tue07/21/22 at 1819, Flush peripheral IV catheter with 1-10 mL of normal saline before and after medications and prn to clear blood from the line or to verify patency. 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 05/31/2022 05/31/2022 06/29/19 7:19 AM AUTOMOTIVE PAINT TECHNICIAN COVID-19 Under Investigation 06/27/2022 06/27/2022 06/27/2022 11:10 PM AUTOMOTIVE PAINT TECHNICIAN MRSA Comment:06/13/23 Nasal MRSA doesn't require iso, ES 06/29/2022 06/11/2023 06/13/2023 10:14 AM AUTOMOTIVE PAINT TECHNICIAN COVID-19 Under Investigation 06/30/2022 06/30/2022 07/01/2022 12:14 AM AUTOMOTIVE PAINT TECHNICIAN documented as of this encounter Care Teams Hat Cleaner Relationship Specialty Start Date End Date Joyce Luevano, SOFTBALL PLAYER-MACHINE GUNNER [address] [place] [id number] PCP - General 03/08/22 11/17/23 Elizabeth Sullivan, RN Morgue Librarian 10/14/17 documented as of this encounter
--- OUTSIDE RECORDS SUMMARY | 2024-06-08 05:37 | XMS_ITS | Encounter Summary ---
Author Organization [facility] Address [address] [place] [address] Care Team Providers Care Nuclear Monitoring Technician Name Role Phone Elizabeth Sullivan RN Unavailable [phone] Joyce Luevano PERIOPERATIVE ASSISTANT-BASKET HAND WEAVER Primary Care Provider [phone] Reason for Visit * Reason Comments Shortness of Breath Pt presents to emerg ency department via EMS for complaints of shortness of breath. Pt is from [facility] and was found in bed [...] Expiration Date Visits Re quested Visits Authorized [id number] 1 1 Encounter Details Date Type Department Care Team (Late st Contact Info) Description 07/15/2022 7:30 AM ATTORNEY LAW CLERK - 07/15/2022 10:05 AM ATTORNEY LAW CLERK Surgery [facility] [address] [place] [id number] Alden Hurtado MD [address] [place] [address] TRANSCERVICAL ZENKERS DIVERTICULECTOMY, OPEN TRACHEOSTOMY Surgery Details Date/Time Status Location OR Service Patient Class Case Class Case Type Trauma Case? 07/15/2022 7:30 AM Posted [facility] OR OR 09 ENT Inpatient Elective > 5 days Panel 1 Procedure LRB Anes Op Region Wound Class Comments TRANSCERVICAL ZENKERS DIVERTICULECTOMY, OPEN TRACHEOSTOMY N/A General Mouth Clean Contaminated Surgeon Surgeon Role Service Panel Alden Hurtado MD Primary ENT 1 Rodrigo Lobo MD Resident - Assisting ENT 1 Svetlana Lewis MD Resident - Assisting 1 Special Needs SUPINE documented in this encounter Social History Tobacco [...] care, and heating? Patient declined 07/05/2022 [facility] of Occupat ional Health - Occupational Stress [...] slept in a residential (including now)? No 07/05/2022 Sex and Gender Information Value Date Recorded Sex Assigned at Not on file Gender Identity Not on file Sexual Orientation Not on file documented as of this encounter Last Filed Vital Signs Vital Sign Reading Time Taken Comments Blood Pressure 135/68 07/15/2022 7:00 AM ATTORNEY LAW CLERK Pulse 75 07/15/2022 7:25 AM ATTORNEY LAW CLERK Temperature 36.7 ??C (98.1 ??F) 07/15/2022 4:00 AM CS T Respiratory Rate 22 07/15/2022 7:00 AM ATTORNEY LAW CLERK Oxygen Saturation 98% 07/15/2022 7:25 AM ATTORNEY LAW CLERK Inhaled Oxygen Concentration 25% 07/15/2022 7 :25 AM ATTORNEY LAW CLERK Weight 62 kg (136 lb 11 oz) 07/12/2022 4:[address] Height 185.4 cm (6' 1 ) 06/27/2022 9:40 PM ATTORNEY LAW CLERK Body Mass Index 19.2 06/27/2022 9:40 PM ATTORNEY LAW CLERK documented in this encounter Functional Status Functional [...] Physician Discharge Summary Patient ID: Mojgan Tabor [id number] 62 year old 1960 Admit date: 06/27/2022 [...] foot wound (02/2022), who initially presented to [facility] ED on 06/28 with complaints of hypoxia. The patient is a shelter resident at [facility]. Imaging in ED showed likely [...] on command. Patient to be transferred to [facility] [place] for further weaning from trach and eventual decannulation. Was seen by and cleared by ENT prior to discharge. To follow outpatient/PCP: ENT Significant Diagnostic Studies: Labs this admission: CBC: Recent Labs Lab Units 07/21/2221707/20/2230407/19/2232107/18/22 0344 07/17/22 0412 WBC 10??3/uL 10.2 9.3 9.2 8.6 8.9 RBC 10??6/uL 2.45* 2.49* 2.31* 2.33* 2.36* HGB g/dL 7.4* 7.8* 7.1* 7.2* 7.4* HCT % 22.9* 23.1* 21.6* 21.6* 21.6* BMP: Recent Labs Lab Units 07/21/2221707/20/22 0305 07/19/22 0322 07/18/22 0344 07/17/22 0412 NA mmol/L 142 139 140 140 141 CL mmol/L 109* 106 108* 109* 108* CO2 mmol/L 26 25 25 25 25 BUN mg/dL 19 23 21 18 16 CREATININE mg/dL 0.53* 0.71 0.86 0.94 1.05 CALCIUM mg/dL 9.2 9.4 8.9 8.8 8.5 Magnesium: No results for input(s): MG in the last 168 hours. Phosphorus: Recent Labs Lab Units 07/21/22 0218 07/20/22 0305 07/19/22 0322 07/18/22 0344 07/17/22 0412 PHOS mg/dL 3.0 2.8 2.8 2.9 [...] aspiration pneumonia. Report dictated byAshu Welch M.D. (founder and president) IAshwin MD have personally reviewed and [...] was drafted by Nash Arreola MD (residential carpet installer) I, Georgia Lees MD, PhD have personally reviewed and interpreted this examination/study. > Interpreting Provider: Georgia Lees MD, PhD on 06/21/2022 9:[address] HEAD NON CONTRAST - suspected intracranial hemorrhage Result Date: 05/11/2022 IMPRESSION: 1. No acute intracranial abnormality. 2. No significant change since 03/17/2022. Reportdictated by Quan Nguyễn MD (founder and president). Latrice Thomason MD have personally reviewed andinterpreted this examination/study. > Interpreting Provider: Latrice Ortiz MD on 05/11/2022 3:[address] HEAD WO CONTRAST Result Date: 03/18/2022 IMPRESSION: 1.No acute intracranial hemorrhage, midline shift, or significant mass effect. Report dictated by Akbar Barillas MD, MD (founder and president). I, Wojciech Neil MD have personally reviewed and interpreted this [...] esophagus. Report dictated by Scar Oliveira MD (founder and president). Rachel Thomason MD have personally reviewed and interpreted this examination/study. > Interpreting Provider: Rachel Phillips MD on 05/14/2022 4:48 PM XR CHEST 1VW PORTABLE Result Date: 06/27/2022 IMPRESSION: Right lower lung zone consolidative opacities, which corresponds to the consolidation seen on chest CT 06/12/2022 and consistent with pneumonia and/or aspiration pneumonitis. Report drafted by Rodolfo Naidu MD (residential carpet installer). IGeorgia MD, PhD have personally reviewed and interpreted this examination/study. > Interpreting Provider: Georgia Lees MD, PhD on 06/27/2022 11:09 PM XR CHEST 1VW PORTABLE Result Date: 06/12/2022 IMPRESSION: No pulmonary consolidation. Report dictated by Carrie Ashby MD (founder and president). Charles Thomason MD have personally reviewed and interpreted this examination/study. > Interpreting Provider: Charles Hare MD on 06/12/2022 12:28 PM XR CHEST 1VW PORTABLE Result Date: 05/11/2022 IMPRESSION: No acute pulmonary process. Report dictated by Ashu Welch M.D. (founder and president) Paddy, KOBE RUBIO MD have personally reviewed and interpreted this examination/study. > Interpreting Provider: KOBE RUBIO MD on 05/11/2022 1:29 PM XR CHEST 1VW PORTABLE Result Date: 12/30/2021 IMPRESSION: No acute cardiopulmonary abnormalities. Report dictated by Marianna Langley MD (radiologyresident). I, Bebo Kuo MD have personally reviewed [...] right. > Dictated by Brandee Celestin MD (founder and president). Charles Thomason MD have personally reviewed [...] pelvis. > Dictated by Brandee Celestin MD (founder and president). John Thomason MD have personally reviewed [...] > Dictated by: Ami Acuna MD, PhD (founder and president). Saloni Thomason MD have personally reviewed [...] > Dictated by: Ami Clifford MD, PhD (founder and president). Saloni Thomason MD have personally reviewed [...] unremarkable. > Dictated by Alexandro Kelsey MD (founder and president) Ashwin Thomason MD have personally reviewed [...] pelvis. > Dictated by Ernie Tapia MD (founder and president). John Thomason MD have personally reviewed and interpreted this examination/study. > Interpreting Provider: John Graham MD on 05/30/2022 11:10 PM Discharge Exam: GEN HEENT CARDIO RESP ABD EXT NEURO SKIN Disposition: shelter care facility Patient Instructions: Medication List START [...] 5 MG/0.1ML nasal spray Generic drug: midazolam Bartow 0.1 mL into the nose as needed [...] Your Medications These medications were sent to [facility] - [address] [facility] [address], [place] [address] ?? aspirin 81 MG chew tablet ?? divalproex sprinkle 125 MG capsule ?? oxybutynin 5 MG tablet ?? polyethylene glycol 3350 17 g packet Discharge Instructions Please follow up with ENT Raisa Vee MD Pulmonary and Critical Care Fellow [facility] Pager Number [phone] RNEY LAW CLERK documented in this encounter Discharge Instructions * Discharge Instructions* Raisa Vee MD - 07/21/2022 3:00 PM ATTORNEY LAW CLERK Please follow up with ENT RNEY LAW CLERK documented in this encounter Medications at Time [...] fluticasone propionate (Flonase) 50 MCG/ACT nasal spray Bartow 1 (one) spray into each nostril once [...] 09/27/2022 midazolam (Nayzilam) 5 MG/0.1ML nasal spray Bartow 0.1 mL into the nose as needed [...] and from sit to supine Outcome: Progressing RNEY LAW CLERK * Felicity Lofton RN - 07/21/2022 3:40 PM CST Pt to transfer at 4;30 via , Trip # [id number]. Packet delivered to bedside RNEY LAW CLERK * Felicity Lofton RN - 07/21/2022 1:05 PM CST Laurita with [facility] called with available bed for today . Team notified and states pt is medicallyready for discharge to LTAC Update Laurita informed CM that sister does not think pt is ready , Team notified and will call sister Ethyl MOBILE: [phone] 1:35 Team spoke with pt's sister , OK for tranfer after trach downsized per team Felicity Lofton RN Care Coordination X [phone] RNEY LAW CLERK * Blair Molina MD - 07/21/2022 10:24 [...] 107/58 Pulse: 100 96 104 102 Resp: 24 Temp: 98.2 ??F (36.8 ??C) SpO2: 99% [...] MBS- this can be done with ENT ENDING MACHINE OPERATOR Marcella Cheney on an outpatient setting in conjunction with follow up with Dr Hurtado. Please call to arrange this follow up AFTER patient is off vent for good and mentally appropriate for PO. - [phone] Blair Molina MD Otolaryngology and Head and Neck Surgery 07/21/22 RNEY LAW CLERK * Raisa Vee MD - 07/20/2022 3:41 [...] The patient is a shelter resident at [facility]. Imaging in ED showed likely [...] 7.1* 7.2* BMP: Recent Labs Component Name 07/20/2230407/19/2232119/23 0344 NA 139 140 140 CL 106 [...] Value - Date/Time CULTURE BRONCHIAL WASHING+GRAM STAIN [[id number]] Collected: 07/05/222230 Lab Status: Final result Specimen: Microbiology from Bronchial Washings Updated: 07/07/22 1552 Culture No growth Gram Stain Rare Polymorphonuclear cells Rare Squamous epithelial cells No organisms seen CULTURE URINE [[id number]] Collected: 07/04/22 0145 Lab Status: Final result Specimen: Urine Clean Catch Updated: 07/05/22 0822 Culture Urine 10,000-50,000 CFU/mL urogenital heidi CULTURE BLOOD FUNGUS [[id number]] (Normal) Collected: 06/30/222044 Lab Status: Preliminary result Specimen: Blood Peripheral Updated: 07/19/22 1202 Culture No fungus isolated RESPIRATORY PANEL WITH SARS-COV-2 BY PCR (STL) [[id number]] (Normal) Collected: 06/30/22 195 Lab Status: Final [...] via the De Jacob Pathway. CULTURE BLOOD [[id number]] (Normal) Collected: 06/30/22 1625 Lab Status: Final result Specimen: Blood Peripheral Updated: 07/05/22 190 Culture No growth day 5 CULTURE BLOOD [[id number]] (Normal) Collected: 06/30/22 1611 Lab Status: Final [...] (PF) ??? lidocaine 1 % - EPINEPHrine 1:304246 ASSESSMENT: Epilepsy, unspecified, not intractable, without status epilepticus ([facility]) POA: Yes Muscle weakness (generalized) POA: Yes Hemiplegia and 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- dominant side ([facility]) POA: Yes Acute encephalopathy POA: Yes Sepsis without acute organ dysfunction ([facility]) POA: Yes PAD (peripheral artery disease) ([facility]) POA: Yes History of stroke POA: Yes Protein-calorie malnutrition, unspecified severity ([facility]) POA: Yes Aspiration into airway POA: Yes Leukocytosis, unspecified type POA: Yes Tachycardia POA: Yes Hypoxia POA: Yes Acute respiratory failure with hypoxia ([facility]) POA: Yes Pneumonia of right lower lobe [...] of Pulmonary, Critical Care, & Sleep Medicine [facility] 07/20/22 RNEY LAW CLERK Associated attestation - Juan Diego Garcia MD - 07/20/2022 7:52 PM ATTORNEY LAW CLERK I have seen, examined and discussed the patient with the fellow and I agree with the the findings and plan of care/recommendations as documented by the fellow. Date of service: 07/20/2022 Juan Diego Garcia M.D. [facility] of Internal Medicine Division of Pulmonary, Critical Care and Sleep Medicine [facility] * Chuy Russell - 07/20/2022 2:32 PM CST Patient seen [...] patient VSS stable throughout, stayed in bed RNEY LAW CLERK * Felicity Lofton RN - 07/20/2022 1:04 PM CST Referral sent to [facility] , [facility] @[phone] aware , states she has spoken to pt's sister Felicity Lofton RN CM Care Coordination X [phone] RNEY LAW CLERK * Mandi Ray, PT - 07/20/2022 9:26 AM CST [facility] Physical Medicine and Rehabilitation Physical Therapy Initial Evaluation Note Patient: Mojgan Tabor Med Record Number: [id number] Date of : 1960 Age: [age] year [...] Epilepsy, unspecified, not intractable, without status epilepticus ([facility]) Difficulty in walking, not elsewhere classified Muscle weakness (generalized) Other specified rheumatoid arthritis, unspecified site ([facility]/H[facility]) Syncope and collapse Alzheimer's disease with early onset ([facility]) Cognitive communication deficit COVID-19 Dysphagia, oropharyngeal phase Hemiplegia and 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- dominant side ([facility]/HCC) History of CVA (cerebrovascular accident) Paroxysmal tachycardia, unspecified (CMS/HCC) Status epilepticus (CMS/HCC) Acute encephalopathy Sepsis without acute organ dysfunction ([facility]) Bacteremia Ulcer of left foot ([facility]/HCC) PAD (peripheral artery disease) ([facility]/HCC) Protein calorie malnutrition ([facility]/HCC) Abdominal pain, generalized Lethargy History of stroke Pulmonary infiltrate Acute on chronic respiratory failure with hypoxia ([facility]/HCC) Protein-calorie malnutrition, unspecified severity ([facility]/HCC) Aspiration into airway Aspiration pneumonitis ([facility]/HCC) Leukocytosis, unspecified type Tachycardia Hypoxia Acute respiratory failure with hypoxia ([facility]/HCC) Pneumonia of right lower lobe due to [...] Appearance: adult male sleeping in bed in [facility]. LDAs: IV's: Peripheral line, Catheter, Telemetry, Oxygen [...] rate, so RT increased pressure support. RT studentAgustin, present throughout session. Mental Status/Cognition: Level of [...] transfer training and monitoring of vitals Modified Plymouth: Current Modified [place] Score: 5 EDUCATION: While performing PT, Patient [...] chair with maximal assist and X 2 Care Home Goal(s): Patient to discharge to appropriate next [...] , with call light within reach, with RNMeeta aware, with therapy cues visible on white board. All lines, monitors, IV's, equipment in place and intact pre and post visit. Patient was in no discomfort and had no additional needs at conclusion of PT eval. RNEY LAW CLERK * Saloni Payan OT - 07/20/2022 9:26 AM CST [facility] Physical Medicine and Rehabilitation Occupational Therapy Initial Evaluation Note Co-eval with PT and RT Patient: Mojgan Tabor Med Record Number: [id number] Date of : 1960 Age: [age] year [...] Active Problem List: Seizure (CMS/HCC) Cerebrovascular accident ([facility]) Hyperlipidemia Hypertension Insomnia Low back pain Osteoporosis Truncal ataxia Therapeutic procedure Seizures ([facility]/HCC) Alcohol abuse, uncomplicated Benign neoplasm of prostate Epilepsy, unspecified, not intractable, without status epilepticus ([facility]) Difficulty in walking, not elsewhere classified Muscle weakness (generalized) Other specified rheumatoid arthritis, unspecified site ([facility]) Syncope and collapse Alzheimer's disease with early onset ([facility]) Cognitive communication deficit COVID-19 Dysphagia, oropharyngeal phase Hemiplegia and 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- dominant side ([facility]) History of CVA (cerebrovascular accident) Paroxysmal tachycardia, unspecified ([facility]/HCC) Status epilepticus ([facility]) Acute encephalopathy Sepsis without acute organ dysfunction ([facility]) Bacteremia Ulcer of left foot ([facility] PAD (peripheral artery disease) ([facility]) Protein calorie malnutrition ([facility]) Abdominal pain, generalized Lethargy History of stroke Pulmonary infiltrate Acute on chronic respiratory failure with hypoxia ([facility]) Protein-calorie malnutrition, unspecified severity ([facility]) Aspiration into airway Aspiration pneumonitis ([facility]) Leukocytosis, unspecified type Tachycardia Hypoxia Acute respiratory failure with hypoxia ([facility]) Pneumonia of right lower lobe due to infectious organism Atelectasis, right Contrast-induced nephropathy Zenker diverticula Hypernatremia Hyperkalemia Past Medical History: Diagnosis Date ??? CVA (cerebral vascular accident) ([facility]/HCC) ??? HTN (hypertension) ??? Seizure ([facility]/HCC) SUBJECTIVE: Subjective: Pt nonverbal throughout PATIENT GOALS: [...] education, HEP education, energy conservationand adaptive equipment Care Home Goal(s): Patient to discharge to appropriate next [...] bed, with call light within reach, with Meeta SIMON aware, with therapy cues visible on white board. Pt turned to L side per ALFRED Tim. RNEY LAW CLERK * Sondra Orlando MD - 07/20/2022 7:58 AM CST Otolaryngology Progress Note 07/20/2022 SUBJECTIVE: 5 Days Post-Op s/p trach and Zenker's repair BILLY, VSS Mechanically ventilated through trach, on spontaneous [...] for possible MBS when neurologically appropriate with ENDING MACHINE OPERATOR Marcella Thomas. ENT will coordinate. - Continue NPO until swallowing study completed. OK for tube feeds Sondra Orlando MD Otolaryngology and Head and Neck Surgery 07/20/22 RNEY LAW CLERK * Raisa Vee MD - 07/19/2022 3:53 PM CST Images from the original note were not included. MEDICAL ICU Progress Note 07/19/2022 at 3:53 PM Admit Date: 06/27/2022 LOS: 21 days Brief Hospital Course: Mojgan Tabor is a 62 year old male??w/ PMHx significant for CVA with residual L sided defects, history of seizure disorder, dementia, dysphagia with recurrent aspiration (PEG-dependent), Zenker diverticulum, hypertension, BPH, PAD s/p L AKA d/t non-healing foot wound (02/2022), who initially presented [facility] on 06/28 with complaints of hypoxia. The patient is a shelter resident at [facility]. Imaging in ED showed likely [...] Labs: CBC: Recent Labs Component Name 07/19/22 0322 07/18/22 0344 07/17/22 0412 WBC 9.2 8.6 8.9 [...] Value - Date/Time CULTURE BRONCHIAL WASHING+GRAM STAIN [[id number]] Collected: 07/05/222230 Lab Status: Final result Specimen: Microbiology from Bronchial Washings Updated: 07/07/22 1552 Culture No growth Gram Stain Rare Polymorphonuclear cells Rare Squamous epithelial cells No organisms seen CULTURE URINE [[id number]] Collected: 07/04/22 0145 Lab Status: Final result Specimen: Urine Clean Catch Updated: 07/05/22 0822 Culture Urine 10,000-50,000 CFU/mL urogenital heidi CULTURE BLOOD FUNGUS [[id number]] (Normal) Collected: 06/30/22 2045 Lab Status: Preliminary result Specimen: Blood Peripheral Updated: 07/19/22 1202 Culture No fungus isolated RESPIRATORY PANEL WITH SARS-COV-2 BY PCR (ST) [[id number]] (Normal) Collected: 06/30/22 195 Lab Status: Final [...] via the De Jacob Pathway. CULTURE BLOOD [[id number]] (Normal) Collected: 06/30/22 1625 Lab Status: Final result Specimen: Blood Peripheral Updated: 07/05/22 1901 Culture No growth day 5 CULTURE BLOOD [[id number]] (Normal) Collected: 06/30/22 1611 Lab Status: Final result Specimen: Blood Peripheral Updated: 07/05/22 1901 Culture No growth day 5 CULTURE MRSA [[id number]] (Abnormal) Collected: 06/29/22 1242 Lab Status: Final [...] (PF) ??? lidocaine 1 % - EPINEPHrine 1:271931 ASSESSMENT: Epilepsy, unspecified, not intractable, without status [...] of Pulmonary, Critical Care, & Sleep Medicine [facility] 07/19/22 RNEY LAW CLERK Associated attestation - Juan Diego Garcia MD - 07/19/2022 7:00 PM ATTORNEY LAW CLERK I have seen, examined and discussed the patient with the fellow and I agree with the the findings and plan of care/recommendations as documented by the fellow. Date of service: 07/19/2022 Juan Diego Garcia M.D. [facility] Internal Medicine Division of Pulmonary, Critical Care and Sleep Medicine [facility] * Saloni Payan OT - 07/19/2022 1:46 PM CST [facility] Department of Physical Medicine & Rehabilitation Progress Note Patient: Mojgan Tabor Med Record Number: [id number] Date of : 1960 Age: [age] year old 07/19/22 1346 Missed Visit Missed Visit Bedrest AM - Most recent activity order continues to be bedrest. Discussed with MICU 3 at rounds this AM the need for updated activity order which has been requested multiple times since last . stated he will update activity order. 1346 addendum - Activity order still not updated at this time. RNEY LAW CLERK * Svetlana Lewis MD - 07/19/2022 8:04 [...] comfortably. HEENT: trach in place 6-0 cuffed Kailaley, left neck incision c/d/i no fluctuance or [...] for possible MBS when neurologically appropriate with ENDING MACHINE OPERATOR Marcella Thomas. ENT will coordinate. - Continue NPO until swallowing study completed OK for tube feeds Svetlana Lewis MD Otolaryngology and Head and Neck Surgery 07/19/22 RNEY LAW CLERK * Mandi Ray, PT - 07/19/2022 7:54 AM CST [facility] Department of Physical Medicine & Rehabilitation Progress Note Patient: Mojgan Tabor Med Record Number: [id number] Date of : 1960 Age: [age] year old 07/19/22 0740 Missed Visit Missed Visit Bedrest Please update activity orders as appropriate to initiate physical therapy evaluation and POC. RNEY LAW CLERK * Melany Tran RD/NOLAN - 07/19/2022 7:36 [...] BPH, [facility]AD [facility] with hypoxia Diet order accuracy Current diet order: NPO Current tube feeding order: VAF @50ml/hr Nutrition recommendation: alter/change nutrition order P.O.Intake for the past 48 hrs:No data recorded Food Allergies: No known food allergies GI Concerns: None Chewing/Swallowing: Other (Comment) (intubated) Pain affecting intake: No Admission weight: Weight: 47.6 kg (105 lb) (06/27/222130) Recent Weights/Methods 07/06/2022 0400 07/07/2022 0400 07/10/2022 [...] 6 10 AST - - - - - 19 ANIONGAP 11 10 12 - - 19* 12 BCR 24* 19 15 - - 24* OSMOLALITY 294 292 294 - [...] Exceptions (right arm) Estimated Energy Needs: KCAL: 3790-1673 (20-25kcal/kg of ABW) Protein (g): 70-87 (1.2-1.5gm/kg [...] Progress: Continue with current goal Ascom 4535 RNEY LAW CLERK * Lindsay Herrera RCP - 07/18/2022 3:50 PM CST Pt will be monitored for secretions and will be suctioned as needed to maintain patent airway. RNEY LAW CLERK * Chely Alves, PT - 07/18/2022 11:48 AM CST [facility] Department of Physical Medicine & Rehabilitation Progress Note Patient: Mojgan Tabor Med Record Number: [id number] Date of : 1960 Age: [age] year old 07/18/22 1100 Missed Visit Missed Visit Bedrest;Other (Comment) Please update activity orders prior to mobilization with therapy. Thank you RNEY LAW CLERK * Raisa Vee MD - 07/18/2022 10:47 [...] The patient is a shelter resident at [facility]. Imaging in ED showed likely [...] Yes Labs: CBC: Recent Labs Component Name 07/18/2234307/17/2241107/16/2219 WBC 8.6 8.9 9.9 HGB 7.2* 7.4* 7.7* BMP: Recent Labs Component Name 07/18/2234307/17/2241107/16/22 0519 NA 140 141 140 CL 109* 108* [...] 10 Coagulation: Recent Labs Component Name 06/27/22 22105/11/22 1309 03/11/22 1059 PT 12.8 13.5 15.4* [...] Value - Date/Time CULTURE BRONCHIAL WASHING+GRAM STAIN [[id number]] Collected: 07/05/22 2231 Lab Status: Final result Specimen: Microbiology from Bronchial Washings Updated: 07/07/22 1552 Culture No growth Gram Stain Rare Polymorphonuclear cells Rare Squamous epithelial cells No organisms seen CULTURE URINE [[id number]] Collected: 07/04/22 0145 Lab Status: Final result Specimen: Urine Clean Catch Updated: 07/05/22 0822 Culture Urine 10,000-50,000 CFU/mL urogenital heidi CULTURE BLOOD FUNGUS [[id number]] (Normal) Collected: 06/30/22 2045 Lab Status: Preliminary result Specimen: Blood Peripheral Updated: 07/12/22 0822 Culture No fungus isolated RESPIRATORY PANEL WITH SARS-COV-2 BY PCR (STL) [[id number]] (Normal) Collected: 06/30/22 195 Lab Status: Final [...] via the De Jacob Pathway. CULTURE BLOOD [[id number]] (Normal) Collected: 06/30/22 1625 Lab Status: Final result Specimen: Blood Peripheral Updated: 07/05/22 1901 Culture No growth day 5 CULTURE BLOOD [[id number]] (Normal) Collected: 06/30/22 1611 Lab Status: Final result Specimen: Blood Peripheral Updated: 07/05/22 1901 Culture No growth day 5 CULTURE MRSA [[id number]] (Abnormal) Collected: 06/29/22 1242 Lab Status: Final result Specimen: Microbiology from Nasal Updated: 06/30/22 2139 Culture Growth of Staphylococcus aureus methicillin-resistant (MRSA) Narrative: Methicillin-resistant Staphylococci (MRSA) are resistant to all currently available beta-lactam antibiotics with the exception of the newer cephalosporins with anti-MRSA activity. Contact precautionsrequired. LEGIONELLA ANTIGEN URINE [[id number]] (Normal) Collected: 06/28/22 0348 Lab Status: Final [...] SARS-COV-2 (COVID-19) FLU A/B RSV PCR RAPID [[id number]] (Normal) Collected: 06/27/222222 Lab Status: Final result [...] assay are available upon request. CULTURE BLOOD [[id number]] (Normal) Collected: 06/27/222214 Lab Status: Final result Specimen: Blood Peripheral Updated: 07/03/22 0200 Culture No growth day 5 CULTURE BLOOD [[id number]] (Normal) Collected: 06/27/222199 Lab Status: Final result [...] (PF) ??? lidocaine 1 % - EPINEPHrine 1:769104 ASSESSMENT: Epilepsy, unspecified, not intractable, without status [...] Endotracheal Tube 8 MM (Active) Placement Date/Time: 07/05/22 2128 Person who placed: Shannon Nino MD Mask Ventilation: easy mask Induction: Rapid Sequence Blade Type: King Blade Size: 4 Support Device: Video Laryngoscope Device: Endotracheal Tube Location: Oral Tube s... Number of days: 8 Other Wound Anterior;Lower;Proximal;Right Arm (Active) Date/Time: 06/29/221999 Orientation: Anterior;Lower;Proximal;Right Location: Arm Number of days: 14 Other Wound Left Ear (Active) Date/Time: 07/03/22 1840 Orientation: Left Location: Ear Number of days: [...] of Pulmonary, Critical Care, & Sleep Medicine [facility] 07/18/22 RNEY LAW CLERK Associated attestation - Artemio Abarca MD - 07/18/2022 7:37 PM ATTORNEY LAW CLERK I saw and evaluated the patient. I reviewed the resident???s note and agree with findings and plan as documented in the resident???s note Artemio Abarca MD Division of Pulmonary, Critical Care, & Sleep Medicine [facility] [employer] P: [phone] 07/18/2022 , 7:37 PM * Jhoana Caro [...] for possible MBS when neurologically appropriate with ENDING MACHINE OPERATOR Marcella Thomas. ENT will coordinate. Jhoana Caro MD Otolaryngology and Head and Neck Surgery 07/18/22 RNEY LAW CLERK * Saloni Payan OT - 07/17/2022 1:58 PM CST [facility] Department of Physical Medicine & Rehabilitation Progress Note Patient: Mojgan Tabor Med Record Number: [id number] Date of : 1960 Age: [age] year old 07/17/22 1358 Missed Visit Missed Visit Bedrest Pt is vent to trach, will follow up Tuesday with early mobility team. Also, please update activity orders prior to mobilization with therapy. Thank you. RNEY LAW CLERK * Raisa Vee MD - 07/17/2022 12:45 [...] The patient is a shelter resident at [facility]. Imaging in ED showed likely [...] Labs: CBC: Recent Labs Component Name 07/17/22 04107/16/22 0519 07/15/22 0401 WBC 8.9 9.9 6.7 HGB 7.4* 7.7* 8.4* BMP: Recent Labs Component Name 07/17/22 04107/16/22 0519 07/15/22 0401 NA 141 140 143 [...] Value - Date/Time CULTURE BRONCHIAL WASHING+GRAM STAIN [[id number]] Collected: 07/05/222230 Lab Status: Final result Specimen: Microbiology from Bronchial Washings Updated: 07/07/22 1552 Culture No growth Gram Stain Rare Polymorphonuclear cells Rare Squamous epithelial cells No organisms seen CULTURE URINE [[id number]] Collected: 07/04/22 0145 Lab Status: Final result Specimen: Urine Clean Catch Updated: 07/05/22 0822 Culture Urine 10,000-50,000 CFU/mL urogenital heidi CULTURE BLOOD FUNGUS [[id number]] (Normal) Collected: 06/30/222044 Lab Status: Preliminary result Specimen: Blood Peripheral Updated: 07/12/22 08 Culture No fungus isolated RESPIRATORY PANEL WITH SARS-COV-2 BY PCR (STL) [[id number]] (Normal) Collected: 06/30/221951 Lab Status: Final result [...] via the De Jacob Pathway. CULTURE BLOOD [[id number]] (Normal) Collected: 06/30/22 1625 Lab Status: Final result Specimen: Blood Peripheral Updated: 07/05/22 190 Culture No growth day 5 CULTURE BLOOD [[id number]] (Normal) Collected: 06/30/22 1611 Lab Status: Final result Specimen: Blood Peripheral Updated: 07/05/22 1901 Culture No growth day 5 CULTURE MRSA [[id number]] (Abnormal) Collected: 06/29/22 1242 Lab Status: Final result Specimen: Microbiology from Nasal Updated: 06/30/22 2139 Culture Growth of Staphylococcus aureus methicillin-resistant (MRSA) Narrative: Methicillin-resistant Staphylococci (MRSA) are resistant to all currently available beta-lactam antibiotics with the exception of the newer cephalosporins with anti-MRSA activity. Contact precautionsrequired. LEGIONELLA ANTIGEN URINE [[id number]] (Normal) Collected: 06/28/22 0348 Lab Status: Final [...] SARS-COV-2 (COVID-19) FLU A/B RSV PCR RAPID [[id number]] (Normal) Collected: 06/27/223 Lab Status: Final result Specimen: Microbiology from [...] assay are available upon request. CULTURE BLOOD [[id number]] (Normal) Collected: 06/27/222214 Lab Status: Final result Specimen: Blood Peripheral Updated: 07/03/22 0200 Culture No growth day 5 CULTURE BLOOD [[id number]] (Normal) Collected: 06/27/222199 Lab Status: Final result [...] (PF) ??? lidocaine 1 % - EPINEPHrine 1:492474 ASSESSMENT: Epilepsy, unspecified, not intractable, without status [...] of Pulmonary, Critical Care, & Sleep Medicine [facility] 07/17/22 RNEY LAW CLERK Associated attestation - Artemio Abarca MD - 07/17/2022 2:30 PM ATTORNEY LAW CLERK Medical ICU Attending Note I have seen [...] Has excellent lung mechanics Changed to PSV 05/03, however, cont to have apnea episodes Will [...] Critical Care Attending: Artemio Abarca MD * Chely Alves, PT - 07/17/2022 12:21 PM CST [facility] Department of Physical Medicine & Rehabilitation Progress Note Patient: Mojgan Tabor [facility] Record Number: [id number] Date of : 1960 Age: [age] year old 07/17/22 1200 Missed Visit Missed Visit Bedrest;Other (Comment) Please update activity orders so therapy can be initiated. RNEY LAW CLERK * Sondra Orlando MD - 07/17/2022 8:27 [...] for possible MBS when neurologically appropriate with ENDING MACHINE OPERATOR Marcella Thomas. ENT will coordinate. Sondra Orlando MD Otolaryngology and Head and Neck Surgery Resident 07/17/22 RNEY LAW CLERK * Raisa Vee MD - 07/16/2022 1:23 [...] The patient is a shelter resident at [facility]. Imaging in ED showed likely [...] Yes Labs: CBC: Recent Labs Component Name 07/16/2251807/15/22 0401 07/14/22 0411 WBC 9.9 6.7 6.8 HGB 7.7* 8.4* 8.2* BMP: Recent Labs Component Name 07/16/2251807/15/22 0401 07/14/22 0411 NA 140 143 139 [...] Value - Date/Time CULTURE BRONCHIAL WASHING+GRAM STAIN [[id number]] Collected: 07/05/222230 Lab Status: Final result Specimen: Microbiology from Bronchial Washings Updated: 07/07/22 1552 Culture No growth Gram Stain Rare Polymorphonuclear cells Rare Squamous epithelial cells No organisms seen CULTURE URINE [[id number]] Collected: 07/04/22 0145 Lab Status: Final result Specimen: Urine Clean Catch Updated: 07/05/22 0822 Culture Urine 10,000-50,000 CFU/mL urogenital heidi CULTURE BLOOD FUNGUS [[id number]] (Normal) Collected: 06/30/222044 Lab Status: Preliminary result Specimen: Blood Peripheral Updated: 07/12/22 0822 Culture No fungus isolated RESPIRATORY PANEL WITH SARS-COV-2 BY PCR (ST) [[id number]] (Normal) Collected: 06/30/221951 Lab Status: Final result [...] via the De Jacob Pathway. CULTURE BLOOD [[id number]] (Normal) Collected: 06/30/22 1625 Lab Status: Final result Specimen: Blood Peripheral Updated: 07/05/22 1901 Culture No growth day 5 CULTURE BLOOD [[id number]] (Normal) Collected: 06/30/22 1611 Lab Status: Final result Specimen: Blood Peripheral Updated: 07/05/22 1901 Culture No growth day 5 CULTURE MRSA [[id number]] (Abnormal) Collected: 06/29/22 1242 Lab Status: Final result Specimen: Microbiology from Nasal Updated: 06/30/22 2139 Culture Growth of Staphylococcus aureus methicillin-resistant (MRSA) Narrative: Methicillin-resistant Staphylococci (MRSA) are resistant to all currently available beta-lactam antibiotics with the exception of the newer cephalosporins with anti-MRSA activity. Contact precautionsrequired. LEGIONELLA ANTIGEN URINE [[id number]] (Normal) Collected: 06/28/22 0348 Lab Status: Final [...] SARS-COV-2 (COVID-19) FLU A/B RSV PCR RAPID [[id number]] (Normal) Collected: 06/27/22 2223 Lab Status: Final [...] assay are available upon request. CULTURE BLOOD [[id number]] (Normal) Collected: 06/27/222214 Lab Status: Final result Specimen: Blood Peripheral Updated: 07/03/22199 Culture No growth day 5 CULTURE BLOOD [[id number]] (Normal) Collected: 06/27/222199 Lab Status: Final result [...] (PF) ??? lidocaine 1 % - EPINEPHrine 1:721629 ASSESSMENT: Epilepsy, unspecified, not intractable, without status [...] of Pulmonary, Critical Care, & Sleep Medicine [facility] 07/16/22 RNEY LAW CLERK Associated attestation - Artemio Abarca MD - 07/16/2022 2:00 PM ATTORNEY LAW CLERK Medical ICU Attending Note I have seen [...] weaning. I placed the pt on PSV 12/. Doing well with excellent lung mechanics Needs [...] 55 mL IVPB, Intravenous, Every 6 Hours (03,09,15,) ?? [COMPLETED] lactated ringers IV bolus, Intravenous, [...] for possible MBS when neurologically appropriate with ENDING MACHINE OPERATOR Marcella Thomas. ENT will coordinate. Portillo Flynn MD PGY-5 Otolaryngology - Head and Neck Surgery 07/16/22 9:05 AM RNEY LAW CLERK * Kortney Cruz RCP - 07/15/2022 4:42 PM CST IPV placed on hold due to some bleeding around new trach RNEY LAW CLERK * Raisa Vee MD - 07/15/2022 11:44 [...] The patient is a shelter resident at [facility]. Imaging in ED showed likely [...] [facility] Patient is still sedated from surgery so [...] Labs: CBC: Recent Labs Component Name 07/15/22 04007/14/22 0411 07/13/22 0413 WBC 6.7 6.8 8.6 HGB 8.4* 8.2* 8.9* BMP: Recent Labs Component Name 07/15/22 0401 07/14/22 0411 07/13/22 0413 NA 143 139 143 CL 107 104 [...] Value - Date/Time CULTURE BRONCHIAL WASHING+GRAM STAIN [[id number]] Collected: 07/05/222230 Lab Status: Final result Specimen: Microbiology from Bronchial Washings Updated: 07/07/22 1552 Culture No growth Gram Stain Rare Polymorphonuclear cells Rare Squamous epithelial cells No organisms seen CULTURE URINE [[id number]] Collected: 07/04/22 0145 Lab Status: Final result Specimen: Urine Clean Catch Updated: 07/05/22 0822 Culture Urine 10,000-50,000 CFU/mL urogenital heidi CULTURE BLOOD FUNGUS [[id number]] (Normal) Collected: 06/30/22 204 Lab Status: Preliminary result Specimen: Blood Peripheral Updated: 07/12/22 0822 Culture No fungus isolated RESPIRATORY PANEL WITH SARS-COV-2 BY PCR ([facility]) [[id number]] (Normal) Collected: 06/30/221951 Lab Status: Final result [...] via the De Jacob Pathway. CULTURE BLOOD [[id number]] (Normal) Collected: 06/30/22 1625 Lab Status: Final result Specimen: Blood Peripheral Updated: 07/05/22 1901 Culture No growth day 5 CULTURE BLOOD [[id number]] (Normal) Collected: 06/30/22 1611 Lab Status: Final result Specimen: Blood Peripheral Updated: 07/05/22 1901 Culture No growth day 5 CULTURE MRSA [[id number]] (Abnormal) Collected: 06/29/22 1242 Lab Status: Final result Specimen: Microbiology from Nasal Updated: 06/30/22 2139 Culture Growth of Staphylococcus aureus methicillin-resistant (MRSA) Narrative: Methicillin-resistant Staphylococci (MRSA) are resistant to all currently available beta-lactam antibiotics with the exception of the newer cephalosporins with anti-MRSA activity. Contact precautionsrequired. LEGIONELLA ANTIGEN URINE [[id number]] (Normal) Collected: 06/28/22 0348 Lab Status: Final [...] SARS-COV-2 (COVID-19) FLU A/B RSV PCR RAPID [[id number]] (Normal) Collected: 06/27/22 2223 Lab Status: Final [...] assay are available upon request. CULTURE BLOOD [[id number]] (Normal) Collected: 06/27/222214 Lab Status: Final result Specimen: Blood Peripheral Updated: 07/03/22199 Culture No growth day 5 CULTURE BLOOD [[id number]] (Normal) Collected: 06/27/222199 Lab Status: Final result [...] (PF) ??? lidocaine 1 % - EPINEPHrine 1:442507 ASSESSMENT: Epilepsy, unspecified, not intractable, without status [...] Endotracheal Tube 8 MM (Active) Placement Date/Time: 07/05/22 2128 Person who placed: Shannon Nino MD Mask [...] of Pulmonary, Critical Care, & Sleep Medicine [facility] 07/15/22 RNEY LAW CLERK Associated attestation - Artemio Abarca MD - 07/15/2022 3:37 PM ATTORNEY LAW CLERK Medical ICU Attending Note I have seen [...] documented settings. small amount of bloody secretions RNEY LAW CLERK * Rodrigo Lobo MD - 07/15/2022 9:56 AM CST ENT Plan of Care S/p transcervical Zenker's diverticulectomy and open tracheostomy. Plan - When mental status is appropriate, patient will need a MBS with Marcella Thomas (ENT ENDING MACHINE OPERATOR) to evaluate swallow prior to initiating oral [...] Head & Neck Surgery 07/15/2022 9:58 AM RNEY LAW CLERK * James Oliveira RN - 07/15/2022 9:36 AM CST Case Management Progress Note Anticipated level of care at discharge: Prison - Medicaid Discharge Plan: SNF [facility] SW following for SNF d/c ([facility] tentatively accepted) Patient remains [...] get more.: Never true Medication affordability concerns: Lana Oliveira, MSN, solar project coordination specialist Office:[phone] 07/15/2022 RNEY LAW CLERK * Kortney Cruz RCP - 07/15/2022 9:30 AM CST PT GOING TO OR NOW FOR TRACHEOSTOMY. RNEY LAW CLERK * Saloni Payan OT - 07/15/2022 9:25 AM CST [facility] Department of Physical Medicine & Rehabilitation Progress Note Patient: Mojgan Tabor [facility] Record Number: [id number] Date of : 1960 Age: [age] year old 07/15/22 0925 Therapy on Hold Therapy on Hold Chart Reviewed;Surgery;New Order Required for Therapy Pt to OR under general anesthesia. Per PMR guidelines, pt to be placed on hold from therapy services at this time. Please reorder inpatient therapy when pt appropriate for mobilization. Thank you. RNEY LAW CLERK * Mandi Ray, PT - 07/15/2022 9:12 AM CST [facility] Department of Physical Medicine & Rehabilitation Progress Note Patient: Mojgan Tabor [facility] Record Number: [id number] Date of : 1960 Age: [age] year old 07/15/22 0912 Therapy on Hold Therapy on Hold Chart Reviewed;Surgery;New Order Required for Therapy Please re-consult physical therapy when pt appropriate for functional mobility evaluation. Thank you. RNEY LAW CLERK * Alden Hurtado MD - 07/15/2022 6:46 AM CST Otolaryngology [...] 55 mL IVPB, Intravenous, Every 6 Hours (03,09,15,) [START ON 07/16/2022] lacosamide (Vimpat) injection 200 [...] Otolaryngology - Head and Neck Surgery 07/15/2022 RNEY LAW CLERK * Myrna Hammond - 07/14/2022 5:08 PM CST Supervisor [employer] consulted with staff on patient's conditions. Patient is expected to have surgery tomorrow. Pastoral care remains available continuously. / Myrna Hammond 07/14/2022 5:09 PM RNEY LAW CLERK * Raisa Vee MD - 07/14/2022 4:55 [...] The patient is a shelter resident at [facility]. Imaging in ED showed likely [...] 9.3* BMP: Recent Labs Component Name 07/14/22 0411 07/13/22 04107/12/22 0450 NA 139 143 143 CL 104 [...] Value - Date/Time CULTURE BRONCHIAL WASHING+GRAM STAIN [[id number]] Collected: 07/05/222230 Lab Status: Final result Specimen: Microbiology from Bronchial Washings Updated: 07/07/22 1552 Culture No growth Gram Stain Rare Polymorphonuclear cells Rare Squamous epithelial cells No organisms seen CULTURE URINE [[id number]] Collected: 07/04/22 0145 Lab Status: Final result Specimen: Urine Clean Catch Updated: 07/05/22 0822 Culture Urine 10,000-50,000 CFU/mL urogenital heidi CULTURE BLOOD FUNGUS [[id number]] (Normal) Collected: 06/30/22 2045 Lab Status: Preliminary result Specimen: Blood Peripheral Updated: 07/12/22 0822 Culture No fungus isolated RESPIRATORY PANEL WITH SARS-COV-2 BY PCR ([facility]) [[id number]] (Normal) Collected: 06/30/221951 Lab Status: Final result [...] via the De Jacob Pathway. CULTURE BLOOD [[id number]] (Normal) Collected: 06/30/22 1625 Lab Status: Final result Specimen: Blood Peripheral Updated: 07/05/22 1901 Culture No growth day 5 CULTURE BLOOD [[id number]] (Normal) Collected: 06/30/22 1611 Lab Status: Final result Specimen: Blood Peripheral Updated: 07/05/22 1901 Culture No growth day 5 CULTURE MRSA [[id number]] (Abnormal) Collected: 06/29/22 1242 Lab Status: Final result Specimen: Microbiology from Nasal Updated: 06/30/22 2139 Culture Growth of Staphylococcus aureus methicillin-resistant (MRSA) Narrative: Methicillin-resistant Staphylococci (MRSA) are resistant to all currently available beta-lactam antibiotics with the exception of the newer cephalosporins with anti-MRSA activity. Contact precautionsrequired. LEGIONELLA ANTIGEN URINE [[id number]] (Normal) Collected: 06/28/22 0348 Lab Status: Final [...] SARS-COV-2 (COVID-19) FLU A/B RSV PCR RAPID [[id number]] (Normal) Collected: 06/27/222222 Lab Status: Final result [...] assay are available upon request. 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 ([facility]) POA: Yes Acute encephalopathy POA: Yes Sepsis without acute organ dysfunction ([facility]) POA: Yes PAD (peripheral artery disease) ([facility]) POA: Yes History of stroke POA: Yes Protein-calorie malnutrition, unspecified severity ([facility]) POA: Yes Aspiration into airway POA: Yes Leukocytosis, unspecified type POA: Yes Tachycardia POA: Yes Hypoxia POA: Yes Acute respiratory failure with hypoxia ([facility]) POA: Yes Pneumonia of right lower lobe [...] Arm Name/Credentials of person who placed: Kandi Wesley IV Catheter Size: 20 Gauge Technique: [...] of Pulmonary, Critical Care, & Sleep Medicine [facility] 07/14/22 RNEY LAW CLERK Associated attestation - Artemio Abarca MD - 07/14/2022 5:45 PM ATTORNEY LAW CLERK Medical ICU Attending Note I have seen [...] MD General Surgery Resident 1:13 PM 07/14/2022 RNEY LAW CLERK * Melany Tran RD/NOLAN - 07/14/2022 12:51 PM CST Nutrition Re-Assessment [...] BPH, PAD s/p L [facility] Diet order accuracy Current diet order: NPO Current tube feeding order: Nepro @ 30ml/hr Nutrition recommendation: alter/change nutrition order P.O.Intake for the past 48 hrs:No data recorded Food Allergies: No known food allergies GI Concerns: None Chewing/Swallowing: Other (Comment) (intubated) Pain affecting intake: No Admission weight: Weight: 47.6 kg (105 lb) (06/27/222130) Recent Weights/Methods 06/27/2022213007/01/2022 0400 07/04/2022 0000 07/05/2022 0000 07/06/2022 0400 [...] - - 13 - 19 19 ANIONGAP 14 13 14 - [...] Exceptions (right arm) Estimated Energy Needs: KCAL: 4498-5494 (20-25kcal/kg of ABW) Protein (g): 70-87 (1.2-1.5gm/kg [...] with current goal Ascom 4535 Ascom 4535 RNEY LAW CLERK * Meeta Trujillo RN - 07/14/2022 9:27 AM CST Problem: [...] Absence of injury while restrained Outcome: Progressing RNEY LAW CLERK * Akbar Patten MD - 07/13/2022 11:19 [...] The patient is a shelter resident at [facility]. Imaging in ED showed likely [...] ad merline Code status: Full Code Disposition: JELLYU Akbar Patten MD (PGY6-Fellow) Pulmonary Disease and Critical Care Medicine Division of Pulmonary, Critical Care, & Sleep Medicine [facility] 07/05/2022 11:19 AM RNEY LAW CLERK Associated attestation - Artemio Abarca MD - 07/14/2022 6:31 AM ATTORNEY LAW CLERK Medical ICU Attending Note I have seen [...] Otolaryngology - Head and Neck Surgery 07/13/2022 RNEY LAW CLERK * Meeta Trujillo RN - 07/13/2022 7:41 [...] Absence of injury while restrained Outcome: Progressing RNEY LAW CLERK * Akbar Patten MD - 07/12/2022 11:34 [...] The patient is a shelter resident at [facility]. Imaging in ED showed likely [...] - - 13 - 19 19 EGFR 49* 42* 38* - >90 [...] Arm Name/Credentials of person who placed: Kandi Wesley IV Catheter Size: 20 Gauge Technique: [...] Pulmonary, Critical Care, & Sleep Medicine [facility] 07/05/2022 11:34 AM RNEY LAW CLERK Associated attestation - Artemio Abarca MD - 07/12/2022 2:34 PM ATTORNEY LAW CLERK Medical ICU Attending Note I have seen [...] Care Attending: Artemio Abarca MD * Meeta Trujillo RN - 07/12/2022 10:35 AM CST Problem: [...] Absence of injury while restrained Outcome: Progressing RNEY LAW CLERK * Melany Tran RD/NOLAN - 07/12/2022 8:39 [...] monitor per Clinical Nutrition guidelines. Ascom [id number] RNEY LAW CLERK * Jhoana Caro MD - 07/12/2022 7:16 AM CST Otolaryngology Progress Note 07/12/2022 SUBJECTIVE: NAEO Intubated, sedated Intermittently follows limited commands VITALS: Temp (30hrs) Max:97.7 ??F (36.5 ??C) Vitals: 07/12/22 0300 07/12/22 0400 07/12/22 0500 07/12/22 0600 BP: 124/74 120/73 130/78 149/87 Pulse: 101 105 98 94 Resp: 19 17 10 12 Temp: 97.7 ??F (36.5 [...] Otolaryngology - Head and Neck Surgery 07/12/2022 RNEY LAW CLERK * Akbar Patten MD - 07/11/2022 3:05 PM CST Family Notification Documentation Contact made: 07/11/2022 3:06 PM Person(s) contacted: Adriane Method of communication: In-person Summary of discussion Discussed with Adriane and her about pertinent aspects of patient care, timing of surgery andneed for tracheostomy. Akbar Patten MD (PGY6-Fellow) Pulmonary Disease and Critical Care Medicine Division of Pulmonary, Critical Care, & Sleep Medicine [facility] 07/11/2022 3:06 PM RNEY LAW CLERK * Akbar Patten MD - 07/11/2022 12:08 [...] The patient is a shelter resident at [facility]. Imaging in ED showed likely [...] Arm Name/Credentials of person who placed: Kandi Wesley IV Catheter Size: 20 Gauge Technique: [...] Pulmonary, Critical Care, & Sleep Medicine [facility] 07/05/2022 12:36 PM RNEY LAW CLERK Associated attestation - Tolu Leach MD - 07/11/2022 7:51 PM ATTORNEY LAW CLERK I have seen and examined the patient [...] The patient is a shelter resident at [facility]. Imaging in ED showed likely [...] ??F (36.8 ??C) Pulse: [74-89] 74 Resp: [03-21] 11 BP: (116-147)/(66-81) 138/72 O2 %: [25 [...] 4.4 - 4.0 - 4.4 4.5 CO2 - 29 BUN 44* 39* 40* - [...] POA: Yes Acute respiratory failure with hypoxia ([facility]/HCC) POA: Yes Pneumonia of right lower lobe [...] IV Anterior;Left;Upper Arm (Active) Placement Date/Time: 07/10/22 020 Orientation: Anterior;Left;Upper Location: Arm Name/Credentials of person [...] Pulmonary, Critical Care, & Sleep Medicine [facility] 07/05/2022 3:42 PM RNEY LAW CLERK Associated attestation - Tolu Leach MD - 07/11/2022 7:49 PM ATTORNEY LAW CLERK I have seen and examined the patient [...] Absence of injury while restrained Outcome: Progressing RNEY LAW CLERK * Iggy Rodriguez - 07/09/2022 2:41 PM CST Tuesday Summary Note Discharge Level of Care: SNF vs LTACH Discharge Destination: [facility] vs LTACH Insurance Auth: n/a Anticipated Mode of Transportation: ambulance Contacts (Name, relationship, phone #): sister Forrest, Anticipated DC Date: TBD Pending Needs: medical stability Comments: Pt is a long-term care resident of [facility] but remains intubated, at this time. CLARITA Turcios Phone [phone] 07/09/2022 RNEY LAW CLERK * Melany Tran RD/NOLAN - 07/09/2022 12:57 [...] Pt remains intubated and receiving Promote @ 50ml/hr--derh31d/hr, will increase to goal. x1 stool today. K 4.7. Will continue to follow. Assessment: Med/Surg History and Clinical Diagnoses: 62 year old male with PMH of seizures, stroke w/residual Lsided deficits, dementia, Zenker diverticulum, dysphagia, HTN, BPH, PAD s/p L AKA [facility] Diet order accuracy Current diet order: NPO Current tube feeding order: Promote @50ml/hr Nutrition recommendation: alter/change nutrition order P.O.Intake for the past 48 hrs:No data recorded Food Allergies: No known food allergies GI Concerns: None Chewing/Swallowing: Other (Comment) (intubated) Pain affecting intake: No Admission weight: Weight: 47.6 kg (105 lb) (06/27/222130) Recent Weights/Methods 06/21/2022 1910 06/25/2022 1117 06/27/2022 2131 07/01/2022 [...] 113* - 107 - 101 106 CO2 22 23 22 - 24 - 26 29 GLUCOSE 109 105 109 - 115 [...] Exceptions (right arm) Estimated Energy Needs: KCAL: 9532-3424 (20-25kcal/kg of ABW) Protein (g): 70-87 (1.2-1.5gm/kg [...] Progress: Continue with current goal Ascom 4535 RNEY LAW CLERK * Akbar Patten MD - 07/09/2022 11:53 [...] The patient is a shelter resident at [facility]. Imaging in ED showed likely [...] 4.6* - 4.0 - 4.4 4.5 CO2 22 23 22 - - 29 BUN 39* 40* 40* [...] Peripheral IV Left Antecubital (Active) Placement Date/Time: 06/27/22 2140 Existing LDA : EMS Orientation: Left Location: [...] Indwelling Transurethral Urinary Catheter (Active) Placement Date/Time: 07/07/221612 Name/Credentials of person who placed: ALFRED Acosta [...] Pulmonary, Critical Care, & Sleep Medicine [facility] 07/05/2022 12:04 PM RNEY LAW CLERK Associated attestation - Tolu Leach MD - 07/09/2022 3:58 PM ATTORNEY LAW CLERK MICU Attending Note: I have seen and [...] BKA Labs: CBC: Recent Labs Component Name 07/09/22 0303 07/08/22 [...] ABGs: No results for input(s): PHART, PO2ART, FQN5VQT, BEART in the last 68560 hours. 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 ([facility]/HCC) POA: Yes Acute encephalopathy POA: Yes Sepsis without acute organ dysfunction ([facility]/HCC) POA: Yes PAD (peripheral artery disease) ([facility]/HCC) POA: Yes History of stroke POA: Yes Protein-calorie malnutrition, unspecified severity (CMS/HCC) POA: Yes Aspiration into airway POA: Yes Leukocytosis, unspecified type POA: Yes Tachycardia POA: Yes Hypoxia POA: Yes Acute respiratory failure with hypoxia ([facility]/HCC) POA: Yes Pneumonia of right lower lobe [...] The patient is a shelter resident at [facility]. Imaging in ED showed likely [...] Transurethral Urinary Catheter (Active) Placement Date/Time: 07/07/22 161 Name/Credentials of person who placed: ALFRED Acosta [...] Pulmonary, Critical Care, & Sleep Medicine [facility] 07/05/2022 3:49 PM RNEY LAW CLERK Associated attestation - Tolu Leach MD - 07/08/2022 5:37 PM ATTORNEY LAW CLERK MICU Attending Note: I have seen and [...] Recent Labs Component Name 07/08/22 0334 07/07/22 03407/06/22 034 WBC 6.0 5.0 6.5 HGB 8.8* 9.5* [...] 95 88 Coagulation: Recent Labs Component Name 06/27/225 05/11/22 1309 03/11/22 1059 PT 12.8 13.5 15.4* INR 1.0 1.0 1.2 Cardiac Markers: Recent Labs Component Name 06/28/22 0141 06/27/22 2215 05/30/22 1750 TROPONINI <0.010 <0.010 <0.010 ABGs: No results for input(s): PHART, PO2ART, ISA9IYT, BEART in the last 63981 hours. Assessment: Epilepsy, unspecified, not intractable, without [...] Dr. Tolu Leach MD, MPH * Gaurav Pineda, [facility] - 07/08/2022 8:58 AM CST RT unable to safely deliver IPV psi 35 while patient is on VC 13 480 10. Peak pressures 52 and Plateau 40. RT changed vent setting to PSV 10/10 to deliver duration of IPV treatment. On PSV, peak pressure 36 and plateau 28. Returned patient to prior settings after treatment. RNEY LAW CLERK * Corina Luther MD - 07/08/2022 8:00 AM CST Neurology Consult Note Patient: Mojgan Tabor Age: [age] year old Admission Date and Time: 06/27/2022 Hospital length of stay: 10 Subjective Reason for consult: Concerns about seizure and management of AED medications History of Presenting Illness: Mojgan Tabor is a 62 year old male with past medical history of hypertension, hyperlipidemia, 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 Unchanged small chronic lacunes [...] year old gentleman with refractory epilepsy, R BARTENDER HELPER infarct (residual left sided weakness), HTN, HLD, [...] Physician, Dr. Macario Luther MD Neurology Resident. RNEY LAW CLERK Associated attestation - Nurys Sorto MD - 07/08/2022 4:30 PM ATTORNEY LAW CLERK I have seen and examined the patient [...] Absence of injury while restrained Outcome: Progressing RNEY LAW CLERK * Mandi Jiménez RN - 07/07/2022 10:56 AM CST Case Management Progress Note Anticipated level of care at discharge: Prison - Medicaid Barrier to Disposition: Intubated and sedated, SAMANTHA, Seizure evaluation/EEG. TF, Active problems. Medical staff continues to build poc for disposition and current problems. Will await readiness for disposition. Anticipated Discharge Date: 07/14/22 Transportation at Discharge: Ambulance Transportation to MD: Ambulance Equipment at Home: Equipment at Home: Facility Equipment Additional DME needed: tbd Pharmacy benefit: Yes Comments: Mandi Jiménez Rn BSN [facility] ShovelerBoom Stick Man: [phone] 07/07/2022 RNEY LAW CLERK * Corina Luther MD - 07/07/2022 9:26 AM CST Neurology Consult Note Patient: Mojgan Tabor Age: [age] year old Admission Date and Time: 06/27/2022 Hospital length of stay: 9 Subjective Reason for consult: Concerns about seizure and management of AED medications History of Presenting Illness: Mojgan Tabor is a 62 year old male with past medical history of hypertension, hyperlipidemia, 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 Unchanged small chronic lacunes [...] year old gentleman with refractory epilepsy, R BARTENDER HELPER infarct (residual left sided weakness), HTN, HLD, [...] Physician, Dr. Macario Luther MD Neurology Resident. RNEY LAW CLERK Associated attestation - Nurys Sorto MD - 07/07/2022 3:28 PM ATTORNEY LAW CLERK I have seen and examined the patient [...] The patient is a shelter resident at [facility]. Imaging in ED showed likely [...] rashes/lesions noted DATA Recent Labs Component Name 07/07/2234407/06/2234807/05/22225 WBC 5.0 6.5 5.4 RBC 3.12* 3.16* 2.88* HGB 9.5* 9.7* 8.9* HCT 28.9* 29.3* 27.3* MCV 92.6 92.7 94.8 MCHC 32.9 33.1 32.6 PLTCOUNT 162 157 143* NEUTPCT 52.9 53.9 56.9 NEUTABS 2.63 3.51 3.10 Recent Labs Component Name 07/07/2234407/06/22202407/06/22 1218 07/01/22 1634 06/30/22 1039 06/29/22 0709 [...] Pulmonary, Critical Care, & Sleep Medicine [facility] 07/05/2022 7:48 AM RNEY LAW CLERK Associated attestation - Tolu Leach MD - 07/07/2022 4:17 PM ATTORNEY LAW CLERK MICU Attending Note: I have seen and [...] BKA Labs: CBC: Recent Labs Component Name 02/08/34407/06/2234807/05/22225 WBC 5.0 6.5 5.4 HGB 9.5* 9.7* 8.9* HCT 28.9* 29.3* 27.3* BMP: Recent Labs Component Name 07/07/22 1205 07/07/22 0345 07/06/22202407/06/22 1218 07/06/2234807/05/22203807/05/22225 NA 141 144 146* - 150* - 151* CL 113* 114* 119* - 115* - 115* CO2 19* - 21* - 25 BUN 38* [...] ABGs: No results for input(s): PHART, PO2ART, [id number], BEART in the last 27423 hours. Assessment: Epilepsy, unspecified, not intractable, without [...] Otolaryngology - Head and Neck Surgery 07/07/2022 RNEY LAW CLERK Associated attestation - Alden Hurtado MD - 07/07/2022 12:51 PM ATTORNEY LAW CLERK Attending Physician Supervisory Note I personally interviewed [...] The patient is a shelter resident at [facility]. Imaging in ED showed likely [...] Pulmonary, Critical Care, & Sleep Medicine [facility] 07/05/2022 5:04 PM RNEY LAW CLERK Associated attestation - Tolu Leach MD - 07/07/2022 8:30 AM ATTORNEY LAW CLERK MICU Attending Note: I have seen and [...] ABGs: No results for input(s): PHART, PO2ART, [id number], BEART in the last 38014 hours. Assessment: Epilepsy, unspecified, not intractable, without [...] Tim MD - 07/06/2022 8:44 AM CST [facility] Department of Nephrology Date of Admission: [...] 1.955 Coagulation: Recent Labs Component Name 06/27/22 22105/11/22 1309 03/11/22 1059 PT 12.8 13.5 15.4* [...] Name 07/06/22 0518 07/05/22 2242 07/03/22 1739 [id number] 24 25 27 IMAGING: No results found. ASSESSMENT: 62 yr [...] Ivy Tim MD PGY-3 07/05/2022 8:44 AM RNEY LAW CLERK Associated attestation - Luiz Henderson MD - 07/06/2022 4:35 PM ATTORNEY LAW CLERK I have seen and examined the patient [...] for post intubation bronchoscopy.Patient tolerated procedure well. RNEY LAW CLERK * Meggan Peace RCP - 07/05/2022 10:38 PM CST Patient Intubated with an 8.0 ET tube. Tube visualized throught chords, fogging in tube, CO2 detector, bilateral breath sounds. Patient tolerated procedure well with out complication. RNEY LAW CLERK * Myrna Hammond - 07/05/2022 12:21 PM [...] their brother. Pastoral care remains available continuously. 424/ Myrna Hammond 07/05/2022 12:27 PM RNEY LAW CLERK * Akbar Patten MD - 07/05/2022 8:55 [...] The patient is a shelter resident at [facility]. Imaging in ED showed likely [...] and affect DATA Recent Labs Component Name 07/05/2222507/04/22 0145 07/03/22 0405 WBC 5.4 5.9 6.9 RBC 2.88* 3.28* 3.10* HGB 8.9* 10.1* 9.6* HCT 27.3* 30.9* 29.6* MCV 94.8 94.2 95.5 MCHC 32.6 32.7 32.4 PLTCOUNT 143* 141* 120* NEUTPCT 56.9 64.0 59.2 NEUTABS 3.10 3.77 4.06 Recent Labs Component Name 07/05/22 02207/04/22 0145 07/03/22 0405 07/01/22 1634 06/30/22 1039 06/29/22 0709 06/27/22 2215 01/23/23 1926 POTASSIUM 4.1 4.6* 4.7* - 4.0 [...] Pulmonary, Critical Care, & Sleep Medicine [facility] 07/05/2022 4:16 PM RNEY LAW CLERK Associated attestation - Tolu Leach MD - 07/05/2022 8:53 PM ATTORNEY LAW CLERK MICU Attending Note: I have seen and examined the patient with the house staff on MICU team. I have verified all detailsof the house staff's note and agree with the documentation except for the changes I have documentedbelow: Interval History: Cont to have R lung collapse. Mucomyst and hypertonic nebs added. UOP remains poor. Exam: Vitals: 07/05/22 19107/05/22 19307/05/22199907/05/222025 BP: (!) 181/100 (!) 178/107 (!) 185/115 [...] BKA Labs: CBC: Recent Labs Component Name 07/05/2222507/04/2214407/03/22 0405 WBC 5.4 5.9 6.9 HGB 8.9* 10.1* 9.6* HCT 27.3* 30.9* 29.6* BMP: Recent Labs Component Name 07/05/2222507/04/2214407/03/225 06/21/22192506/15/22 0603 NA 151* 148* 144 - 143 CL 115* 112* 110* - 103 CO2 27 - 27 BUN 40* 38* 32* [...] ABGs: No results for input(s): PHART, PO2ART, AJK4MSZ, BEART in the last 93039 hours. Assessment: Epilepsy, unspecified, not intractable, without [...] Note Anticipated level of care at discharge: Prison - Medicaid This patient is new to my workload today. MICU [address] blade quintanilla Trach this week. Pallitive care discussion requested for GOC and to support patient wishes. Anticipated Discharge Date: 07/05/22 Transportation at Discharge: Ambulance Transportation to MD: Ambulance Equipment at Home: Equipment at Home: Facility Equipment Additional DME needed: unknown Pharmacy benefit: Yes Comments: Mandi Jiménez Rn BSN [facility] [employer] Man: [phone] 07/05/2022 RNEY LAW CLERK * Ivy Tim MD - 07/05/2022 8:32 AM CST [facility] Department of Nephrology Date of Admission: [...] 148* 144 CL 115* 112* 110* CO2 25 23 27 BUN 40* 38* 32* CREATININE 3.43* 3.55* 3.16* Recent Labs Component Name 07/05/2222507/04/225 07/03/22 0405 06/21/22 1926 06/15/22 0603 CALCIUM 9.0 9.4 9.1 - 9.9 [...] not displayed. Recent Labs Component Name 06/27/22 221 LIPASE 18 Recent Labs Component Name 07/04/22 [...] Labs Component Name 07/03/22 1739 03/11/22 1059 [id number] 27 30 IMAGING: No results found. ASSESSMENT: [...] instability noted throughout hospitalization. Received iodinated contrast (1-30-23). There is one supra therapeutic vancomycin trough [...] Ivy Tim MD PGY-3 07/05/2022 8:32 AM RNEY LAW CLERK Associated attestation - Luiz Henderson MD - 07/05/2022 8:29 PM ATTORNEY LAW CLERK I have seen and examined the patient with house-staff on rounds at 11;25 AM. I agree with the house-staff note with the additions/modificiations listed below. SAMANTHA, non oliguric. Good urine output; Creatinine slightly improved. Electrolyte status: Hypernatremia, 151, K 4.1, CO2 25. - Agree to continue 1/2 NS 75 ml/hr. * Rosa Mcfarland, PharmD - 07/04/2022 2:58 PM CST Vancomycin [...] with 2/6 AM labs. Please contact the [facility] pharmacy department ([phone]) with any questions. Rosa Mcfarland PharmD 07/04/2022 2:54 PM Resources: Vancomycin Protocol RNEY LAW CLERK * Demetrio Cary RCP - 07/04/2022 2:17 PM CST Assisted with bedside bronchoscopy. [place] protocol checklist completed prior to procedure with [...] returned to previous. Disposable bronchoscope used? Yes RNEY LAW CLERK * Aaron Elder MD - 07/04/2022 9:17 [...] Otolaryngology - Head and Neck Surgery 07/04/2022 RNEY LAW CLERK * Jaylan Stockton MD - 07/04/2022 7:03 [...] The patient is a shelter resident at [facility]. Imaging in ED showed likely [...] staring events, 2-gen convulsive - Follows with [facility] ?? given encephalopathy can not rule [...] Bedrest Code status: Full Code Disposition: ASHUTOSH Stockton MD Critical Care Fellow RNEY LAW CLERK Associated attestation - Ramya Witt MD - 07/04/2022 10:30 AM ATTORNEY LAW CLERK 07/04/2022 Attending Physician Supervisory Note I personally [...] DO, PGY-6 Pulmonary & Critical Care Fellow RNEY LAW CLERK * Karen Lawrence RN - 07/03/2022 7:19 PM CST Pt arrived, dried blood to right nare and face, large bm, dried to hair on bottom. Pt face when washed removed skin buildup to reveal pink underneath. Oral care pulled multiple areas of dried skin from mouth and lips. Blisters to right forearm bleeding, dressing in bed with patient. RNEY LAW CLERK * Artur Mcgraw MD - 07/03/2022 3:12 [...] be intubated if that is required. Artur Mcgarw MD Hospitalist RNEY LAW CLERK * Clover Ceron, PharmD - 07/03/2022 9:42 AM CST Vancomycin [...] monitor patient's renal function. Please contact the [facility] pharmacy department ([phone]) with any questions. Clover Ceron PharmD 07/03/2022 9:33 AM Resources: Vancomycin Protocol RNEY LAW CLERK * Artur Mcgraw MD - 07/03/2022 8:44 AM CST Hospital Medicine Progress Note Name: Mojgan [...] and nebs 5. Acute hypoxic respiratory failure: 2/2 to aspiration + pneumonia, continue Zosyn and Vancomycin,pulmonology consult 6. Hx of seizure disorder: continue??depakote 500mg q6h, clobazam 20mg BID, vimpat 200mg BID, Keppra 2g BID 7. Hx of CVA: continue lipitor 8. PAD: continue asprin and lipitor 9. BPH: continue tamsulosin?? Lines:??PIV Disposition: Inpatient Diet:??Tube feed Prophylaxis:??[facility] Code:??Full Artur Mcgraw MD Hospitalist, Internal Medicine RNEY LAW CLERK * Mary Simmons MSW - 07/02/2022 3:21 PM CST Tuesday Summary Note Discharge Level of Care:SNF Discharge Destination:[facility] Insurance Auth:N/A Anticipated Mode of Transportation:EMS Contacts (Name, relationship, phone #): Adriane Rodrigues, Anticipated DC Date:07/05 Pending Needs:Medical readiness Comments: Pt resident of [facility]. Facility and family anticipate pt to return to facility when medically appropriate. SW to follow for discharge. CLARITA Thornton [id number] 07/02/2022 RNEY LAW CLERK * Rose Marie Peters RN - 07/02/2022 3:00 PM CST Case Management Progress Note Anticipated level of care at discharge: Prison - Medicaid Discharge Plan: discharge back to [facility] Readmission: Yes Readmission Risk: READMISSION RISK SCORE is 25 at 3:00 PM 07/02/2022. Anticipated Discharge Date: Anticipated Discharge Date: 07/05/22 Patient/Family provided with list of resources? Unknown Preferred Provider / High Quality Network List given?: Unknown Reason for provider choice: Unknown Transportation at Discharge: Ambulance Follow Up Appointment: Transportation to MD:Ambulance Equipment at Home: Equipment at Home: Facility Equipment List DME patient requires but does not have: DME Provider: Huy Screening: Medication affordability concerns: Name: Rose Marie Peters, RN RNEY LAW CLERK * Pat Rodriguez RN - 07/02/2022 11:07 [...] be consistent with estimated needs Outcome: Progressing RNEY LAW CLERK * Pat Rodriguez RN - 07/02/2022 11:02 AM CST 0900 Upon assessment pt sounds gurgly. Oral suctioning provided, O2 sat 98% 2L NC. TF residual 150ml. MD called (Dr. Mcgraw). Per , RN to pause TF and call respiratory for suctioning. RN to give medsper PEG as ordered. RN bladder scanned pt (338ml), will re-scan per order. 0915 RT at bedside suctioning pt 1700 Continue holding TF per Dr. Mcgraw RNEY LAW CLERK * Artur Mgcraw MD - 07/02/2022 9:45 AM CST [facility] Medicine Progress Note Name: Mojgan Tabor [...] Code:??Full Artur Mcgraw MD Hospitalist, Internal Medicine RNEY LAW CLERK * Tamie Carrera, PharmD - 07/02/2022 7:46 [...] monitor patient's renal function. Please contact the [facility] pharmacy department ([phone]) with any questions. Tamie Carrera PharmD 07/02/2022 7:29 AM Resources: Vancomycin Protocol RNEY LAW CLERK * Nevaeh Valera, [facility] - 07/01/2022 6:52 PM CST Vancomycin Per [...] Given - Contrast 06/28/2022 [address]comycin [address] from [facility] (last 72 hours) Date/Time Action Medication Dose [...] monitor patient's renal function. Please contact the [facility] pharmacy department ([phone]) with any questions. Nevaeh Valera RPH 07/01/2022 6:46 PM Resources: Vancomycin Protocol RNEY LAW CLERK * Mary Simmons, RUBBER FLAP TUBER MACHINE OPERATOR - 07/01/2022 3:52 PM CST Facility Admission Note Admitted From: [facility] Level of Care (Skilled, Residential, Assisted, Assisted, Prison): Residential Primary Payor at Facility: [place] Medicaid Can patient Return: Yes Facility Contact: Daina [phone] Physician Following at Facility: Sherrie Does Patient/Family want them to Return?: ASHLIED-ASHWIN LVM with sister Family/Support Name/Contact: Adriane, , Number of Skilled Days Used (if applicable): n/a Prior Level of Functioning: Alert and oriented, Disposition/Anticipated Level of Care at Discharge: Anticipated mode of transport: EMS Special Testing Requirements: n/a Comments: Facility will be able to accept pt back on the weekend. Daina [phone] UPDATE: SisterAdriane, agreeable to patient returning to [facility]. Name/Phone number: Mary Simmons, RUBBER FLAP TUBER MACHINE OPERATOR [phone] RNEY LAW CLERK * Mely Layne RD/ONI - 07/01/2022 2:41 PM CST Initial Nutrition [...] BM 06/30. Labs reviewed; RD noted decreased Avionics Systems Engineer (0.58) and serum albumin (2.2). Will continue to monitor per Clinical Nutrition guidelines. Assessment: Med/Surg History and Clinical Diagnoses: 62 year old male with PMH of seizures, stroke w/residual Lsided deficits, dementia, Zenker diverticulum, dysphagia, HTN, BPH, PAD s/p L AKA [facility] Height: 185.4 cm [...] Pain affecting intake: No Estimated Needs: KCAL: 7220-8347 (30-35 kcal/kg ABW) Protein (g): 100 (1.2 [...] Goal Progress: New goal established Ascom: 4533 RNEY LAW CLERK * Pat Rodriguez RN - 07/01/2022 12:21 [...] integrity is maintained or improved Outcome: Progressing RNEY LAW CLERK * Artur Mcgraw MD - 07/01/2022 10:24 AM CST [facility] Medicine Progress Note Name: Mojgan Tabor [...] continue tamsulosin Lines:??PIV Disposition: Inpatient Diet:??Tube feed Prophylaxis:??SQH Code: Full Artur Mcgraw MD Hospitalist, Internal Medicine RNEY LAW CLERK * Lola Loco RN - 07/01/2022 6:00 AM CST Problem: Fall Risk Goal: Fall risk and fall related injury risk are minimized (interventions related to the fall risk can be found in the flowsheet documentation) 07/01/2022751 by Lola Loco RN Outcome: Progressing 07/01/2022621 by Lola Loco RN Outcome: Progressing Problem: Hemodynamic Status/Cardiac Output Goal: Patient has stable vital signs and fluid balance 07/01/2022 075 by Lola Loco RN Outcome: Progressing 07/01/2022621 by Lola Loco RN Outcome: Progressing Problem: Skin Integrity Goal: Skin integrity is maintained or improved 07/01/2022751 by Lola Loco RN Outcome: Progressing 07/01/2022621 by Lola Loco RN Outcome: Progressing RNEY LAW CLERK * Christine Otto, BillieD - 06/30/2022 11:29 AM CST Vancomycin Per [...] this interval not displayed. Please contact the [facility] pharmacy department ([phone]) with any questions. Christine Otto PharmD 06/30/2022 11:25 AM Resources: Vancomycin Protocol RNEY LAW CLERK * Artur Mcgraw MD - 06/30/2022 11:20 AM CST Hospital Medicine Progress Note Name: Mojgan [...] Report drafted by Rodolfo Naidu MD (residential carpet installer). I, Georgia Lees MD, PhD have personally [...] unremarkable. > Dictated by Alexandro Kelsey MD (founder and president) IAshwin MD have personally reviewed and [...] q6h, clobazam 20mg BID, vimpat 200mg BID, [id number] BID ?? 4. Hx of CVA: continue lipitor ?? 5. PAD: continue asprin and lipitor ?? 6. BPH: continue tamsulosin Lines: PIV Disposition: Inpatient Diet: Tube feed Prophylaxis: SQH Code: Full Artur Mcgraw MD Hospitalist, Internal Medicine RNEY LAW CLERK * Christine Otto, PharmD - 06/30/2022 8:31 [...] monitor patient's renal function. Please contact the [facility] pharmacy department ([phone]) with any questions. Christine Otto PharmD 06/30/2022 7:51 AM Resources: Vancomycin Protocol RNEY LAW CLERK * Lola Loco RN - 06/30/2022 6:00 [...] integrity is maintained or improved Outcome: Progressing RNEY LAW CLERK * Vinny Cruz RN - 06/29/2022 5:31 PM CST Problem: Fall Risk Goal: Fall risk and fall related injury risk are minimized (interventions related to the fall risk can be found in the flowsheet documentation) Outcome: Progressing RNEY LAW CLERK * Artur Mcgraw MD - 06/29/2022 3:02 [...] Report drafted by Rodolfo Naidu MD (residential carpet installer). I, Georgia Lees MD, PhD have personally [...] unremarkable. > Dictated by Alexandro Kelsey MD (founder and president) IAshwin MD have personally reviewed and [...] q6h, clobazam 20mg BID, vimpat 200mg BID, [id number] BID 4. Hx of CVA: continue lipitor 5. PAD: continue asprin and lipitor 6. BPH: continue tamsulosin Lines: PIV Disposition: Inpatient Diet: Tube feed Prophylaxis: h Code: FUll Artur Mcgraw MD Hospitalist, Internal Medicine RNEY LAW CLERK * Rose Marie Peters RN - 06/29/2022 11:39 AM CST Case Management Initial Assessment Case Management screen completed Anticipated Discharge Date: 07/02/22 Transportation at Discharge: Ambulance Anticipated level of care at discharge: Prison - Medicaid Anticipated level of care provider: None Prior to admission level of care: Prison - Medicaid Prior to admit provider: None Discharge Goals and Plans: Plans: Discharge needs identified. See progress notes for details. Case Management to follow for discharge planning. Comments: Lives with: Other (Comment) ([facility]) Physical Limitations: Bed Bound Requires Assistance With: Mobility;Dressing;Toileting;Hygiene;Transfers;Housekeeping;Meal Preparatio n;Medication Administration;Shopping Insurance: Payer/Plan Subscriber Name Rel Member # Group # [facility] * MOJGAN TABOR Self [id number] [address] Readmission: Yes Readmission Risk: READMISSION RISK SCORE is 25 at 11:40 AM 06/29/2022. Met with spoke with patient's sisterAdriane Family Support (name and phone): Extended Emergency Contact Information Primary Emergency Contact: Adriane Hilliard Mobile Relation: Sister Livestock Producer needed? No Secondary Emergency Contact: Amarjti Tabor [facility] Relation: Brother Patient or compliance representative requests care coordination reach out to family or caregiver listed above regarding discharge planning and at time of discharge? yes Patient/Family provided with list of resources? Unknown Preferred Provider / High Quality Network List given?: Unknown Reason for provider choice: Unknown Equipment at Home: Facility Equipment Escapement Matcher Referral: yes for return to facility Will continue to follow. For any questions or needs please contact: Shoveler Name/Phone number: Rose Marie Peters RN [phone] RNEY LAW CLERK * Ck Smiley RCP - 06/28/2022 10:39 AM CST Pt given 7% Sodium Chloride nebulizer at this time. Pt wheezing during treatment, so ALB 5mg dose given at this time. See MAR. Ck Smiley RCP Pt also transitioned to 4l/m Nc at this time. SP02 99%. Ck Smiley RCP RNEY LAW CLERK * Bhavesh Easley MD - 06/28/2022 9:46 AM CST Hospital [...] Rectal, QDAY PRN Relevant labs reviewed in [facility] Recent Labs Component Name 06/27/22 23306/21/22192506/15/22 0603 03/09/22 0135 03/08/22 1455 WBC 15.8* 9.9 6.8 - 20.8* RBC 3.88* 4.21* 4.08* - 4.43 HGB 11.9* 12.9 12.8 - 14.3 HCT 36.7 40.4 38.1 - 42.9 MCV 94.6 96.0 93.4 - 96.8 PLATELET - - - - Occasional* PLTCOUNT 196 380 213 - 211 - = values in this interval not displayed. Recent Labs Component Name 06/27/22 2215 06/21/22192506/15/22 0603 POTASSIUM 4.4 4.5 4.0 CO2 26 29 27 GLUCOSE 98 116* 120* BUN 17 14 12 CREATININE 0.78 0.58* 0.67* CALCIUM 10.3* 10.7* 9.9 AST 19 19 13 ALT 6 10 9 Relevant imaging reviewed in [facility] Assessment/Plan: Please refer to Dr. Chandra note for full A&P Will DC Levaquin. Continue Vanc and Zosyn Will repeat lactic acid. Seizure precautions, aspiration precautions. Disposition:Inpatient for ongoing care Bhavesh Easley MD [facility] Medicine 06/28/2022 RNEY LAW CLERK * Carmine Marte, PharmD - 06/28/2022 4:16 [...] (1.854 m) Recent Labs Component Name 06/27/22 2330 06/27/22 2215 06/21/22 1926 06/15/22 0603 06/02/22 0453 06/01/22 0538 03/19/22 0203 [...] monitor patient's renal function. Please contact the [facility] pharmacy department ([phone]) with any questions. Carmine Marte PharmD 06/28/2022 4:11 AM Resources: Vancomycin Protocol RNEY LAW CLERK documented in this encounter H&P Notes * Migel Ramirez, DO - 07/03/2022 5:53 PM CST ICU HISTORY [...] The patient is a shelter resident at [facility]. Imaging in ED showed likely [...] HTN (hypertension), and Seizure (CMS/HCC). PAST SURGICAL HISTORY Patient has a past [...] appreciate recommendations - Plan------ - repeat U/A 07/04 - start LR @ 75 cc/hr Endocrine [...] DO, PGY-6 Pulmonary & Critical Care Fellow RNEY LAW CLERK Associated attestation - Ruth Mauricio MD - 07/03/2022 10:52 PM ATTORNEY LAW CLERK I have seen and examined the patient with the resident/fellow, and I agree with the findings and plan of care as documented by the resident/fellow. Date of Service: 07/03/2022 Ruth Mauricio MD Dump Motor Operatortransfusion aide Division of Pulmonary, Critical Care and Sleep Medicine [facility] Pager: [phone] * Yasmani Vigil MD - 06/28/2022 3:02 AM CST INTERNAL MEDICINE HISTORY AND PHYSICAL Name: Mojgan Tabor Admit Date and Time: 06/27/2022 9:22 PM Room: [place] [address] Chief Complaint: Chief Complaint Patient presents with ??? Shortness of Breath Pt presents to emergency department via EMS for complaints of shortness of breath. Pt is from [facility] and was found in bed [...] PAD s/p L AKA who presents from [facility] with hypoxia. Patient AO1-2 at baseline. History taken from chart review. Earlier today patient began saturating at 92-94% on 4L NC, baseline 97% on RA. EMS placed on 15L NRB, then put on 30L 40% NFNC at [facility]. Initial labs notable for elevated lactic and [...] fluticasone propionate (Flonase) 50 MCG/ACT nasal spray Bartow 1 (one) spray into each nostril as [...] ??? midazolam (Nayzilam) 5 MG/0.1ML nasal spray Bartow 0.1 mL into the nose as needed [...] Data Review Recent Labs Component Name 06/27/22 2330 06/21/22192506/15/22 0603 WBC 15.8* 9.9 6.8 HGB 11.9* [...] displayed. Recent Labs Component Name 06/27/22 2215 05/11/22 1309 03/11/22 1059 PT 12.8 13.5 15.4* INR 1.0 1.0 1.2 Recent Labs Component Name 06/28/22 0141 06/27/22 2215 05/30/22 1750 03/08/22 [...] was drafted by Nash Arreola MD (residential carpet installer) I, Georgia Lees MD, PhD have personally reviewed and interpreted this examination/study. > Interpreting Provider: Georgia Lees MD, PhD on 06/21/2022 9:14 PM XR CHEST 1VW PORTABLE Rsult Date: 06/27/2022 IMPRESSION: Right lower lung zone consolidative opacities, which corresponds to the consolidation seen on chest CT 06/12/2022 and consistent with pneumonia and/or aspiration pneumonitis. Report drafted by Rodolfo Nadiu MD (residential carpet installer). I, Georgia Lees MD, PhD have personally reviewed and interpreted this examination/study. > Interpreting Provider: Georgia Lees MD, PhD on 06/27/2022 11:09 PM Microbiology Microbiology Results (Displays last 21 days for this encounter ONLY) Procedure Component Value - Date/Time SARS-COV-2 (COVID-19) FLU A/B RSV PCR RAPID [[id number]] (Normal) Collected: 06/27/222222 Lab Status: Final result [...] assay are available upon request. CULTURE BLOOD [[id number]] Collected: 06/27/222214 Lab Status: In process Specimen: Blood Peripheral Updated: 06/27/222228 CULTURE BLOOD [[id number]] Collected: 06/27/222199 Lab Status: In process Specimen: Blood Peripheral Updated: 06/27/222228 CULTURE SPUTUM+GRAM STAIN [[id number]] Collected: 06/12/22 0337 Lab Status: Final result Specimen: Microbiology from Sputum Updated: 06/14/22 0502 Culture Heavy normal oropharyngeal heidi Gram Stain <10 per low power field Squamous epithelial cells >= 25 per low power field Polymorphonuclear cells Heavy Gram-negative diplococci Moderate Gram-positive bacilli Moderate Gram-positive cocci pairs and chains SARS-COV-2 (COVID-19) FLU A/B RSV PCR RAPID [[id number]] (Normal) Collected: 06/11/222121 Lab Status: Final result [...] recent admissions, antibiotic use, and residing in [place]. Treat per IDSA guidelines. -Vanc + Levaquin [...] inpatient Code status: Full Code PCP: Joyce Luevano, PERIOPERATIVE ASSISTANT-BASKET HAND WEAVER Yasmani Vigil MD RNEY LAW CLERK documented in this encounter Procedure Notes * Sean Raymundo, DO - 07/08/2022 7:17 AM CST [facility] EEG REPORT Patient Name: Mojgan Tabor EEG#: [id number] Recording Start Time: 12:23 PM 07/06/2022 Epoch [...] had no electro-cerebral correlate. Sean Raymundo DO RNEY LAW CLERK * Fitzhughaugust - 07/07/2022 6:51 PM CST Neurology called after putting in DC EEG order for this patient but then decided they wanted to keep it on for now. RNEY LAW CLERK * Sean Raymundo DO - 07/07/2022 10:51 AM CST [facility] EEG REPORT Patient Name: Mojgan Tabor EEG#: [id number] Recording Start Time: 12:23 PM 07/06/2022 Epoch [...] were seen duringthis epoch. Sean Raymundo DO RNEY LAW CLERK * Juan Diego Lang - 07/07/2022 9:30 AM CST Fixed some electrodes updated vitals and stim pt. RNEY LAW CLERK * Gianna, August - 07/06/2022 12:49 PM CST MRI electrodes attached. RNEY LAW CLERK * Shannon Nino DO - 07/05/2022 10:32 [...] of Pulmonary, Critical Care and Sleep Medicine [facility] RNEY LAW CLERK Associated attestation - Ruth Mauricio MD - 07/05/2022 11:59 PM ATTORNEY LAW CLERK I was personally present for all portions of the procedure and supervised the fellow/resident. Ruth Mauricio MD Dump Motor Operatortransfusion aide Division of Pulmonary, Critical Care and Sleep Medicine [facility] Pager: [phone] * Shannon Nino DO - 07/05/2022 10:05 [...] direct supervision of attending Dr. Nain Nino DO 07/05/2022 10:05 PM RNEY LAW CLERK Associated attestation - Ruth Mauricio MD - 07/05/2022 11:58 PM ATTORNEY LAW CLERK I was personally present for all portions of the procedure and supervised the fellow/resident. Ruth Mauricio MD Dump Motor Operatortransfusion aide Division of Pulmonary, Critical Care and Sleep Medicine [facility] Pager: [phone] * Ramya Witt MD - 07/04/2022 3:54 PM CST Images from the original note were not included. Bronchoscopy Procedure Note Awake Bronch under moderate sedation. Pre-op Diagnosis: Pneumonia, Atelectasis, Hypoxemic Respiratory Failure and Mucous Plugging. Surgeon: Ramya Witt MD Assistants: Megan, RT and nursing staff. Sedation/Analgesia: midazolam, fentanyl and [...] well. Condition: stable. CRITICAL CARE ATTENDING PHYSICIAN: Ramya Witt M.D., [facility] RNEY LAW CLERK * Ramya Witt MD - 07/04/2022 12:15 PM CST Post Sedation Note Mojgan Tabor is a 62 year old male born on 1960 Unit that procedure is to be preformed: ICU Pre-Procedure Diagnosis: Complete opacification of right hemithorax. Procedure: Bronch with therapeutic aspiration. Post Procedure Diagnosis: same. Complications: none Monitoring: Monitoring consisted of: heart rate, child monitor, continuous pulse oximetry, frequent blood pressure [...] returned to pre-procedure baseline. Discharge plan: ICU RNEY LAW CLERK * Ramya Witt MD - 07/04/2022 10:30 [...] fluticasone propionate (Flonase) 50 MCG/ACT nasal spray Bartow 1 (one) spray into each nostril as [...] ??? midazolam (Nayzilam) 5 MG/0.1ML nasal spray Bartow 0.1 mL into the nose as needed [...] and alternatives were discussed with power of attorney lawyer (Sister) and consent for procedure was obtained. 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 Unchanged small chronic lacunes [...] year old gentleman with refractory epilepsy, R BARTENDER HELPER infarct (residual left sided weakness), HTN, HLD, [...] Physician, Dr. Macario Luther MD Neurology Resident. RNEY LAW CLERK Associated attestation - Nurys Sorto MD - 07/06/2022 7:19 PM ATTORNEY LAW CLERK I have seen and examined the patient [...] MD Neurologic Critical Care Attending * Melany Tran, MINH/ONIN - 07/06/2022 9:12 AM CSTAssociated Order(s): IP [...] BPH, PAD s/p L [facility] Diet order accuracy Current diet order: NPO Current tube feeding order: Jevity 1.5 @20ml/hr Nutrition recommendation: alter/change nutrition order P.O.Intake for the past 48 hrs:No data recorded Food Allergies: No known food allergies GI Concerns: None Chewing/Swallowing: Other (Comment) (intubated) Pain affecting intake: No Admission weight: Weight: 47.6 kg (105 lb) (06/27/222130) Recent Weights/Methods 06/11/2022 2016 06/21/2022 1910 06/25/2022 1117 06/27/20221 07/01/2022 0400 07/04/2022 0000 07/05/2022 0000 07/06/2022399 Weight: 68 kg (150 lb) 68 kg [...] reviewed. Recent Labs Component Name 07/06/22 0349 07/05/22203807/05/22 0226 07/01/22 1634 06/30/22 1039 06/29/22 0709 [...] 13 - 19* 12 BCR 12 12 - - 22 24* OSMOLALITY 318* 321* 321* [...] Exceptions (right arm) Estimated Energy Needs: KCAL: 9937-0291 (20-25kcal/kg of ABW) Protein (g): 70-87 (1.2-1.5gm/kg [...] Progress: Continue with current goal Ascom 4535 RNEY LAW CLERK * Melany Tran RD/LDN - 07/05/2022 10:06 [...] diverticulum, dysphagia, HTN, BPH, PAD s/p L GABRIELLA [facility] Diet order accuracy [...] 13 - 19* 12 BCR 12 11 - 24* OSMOLALITY 321* 315* 304* - 289 [...] Exceptions (right arm) Estimated Energy Needs: KCAL: 6628-2862 (30-35 kcal/kg ABW) Protein (g): 100 (1.2 [...] Progress: Continue with current goal Ascom 4535 RNEY LAW CLERK * Lucien Alaniz MD - 07/03/2022 2:47 PM CSTAssociated Order(s): IP CONSULT TO NEPHROLOGY [facility] Department of Nephrology History & Physical [...] fluticasone propionate (Flonase) 50 MCG/ACT nasal spray Bartow 1 (one) spray into each nostril as [...] ??? midazolam (Nayzilam) 5 MG/0.1ML nasal spray Bartow 0.1 mL into the nose as needed [...] not displayed. ABG: Recent Labs Component Name 03/11/22 1059 [id number] 30 IMAGING: No results found. ASSESSMENT: 62 [...] Alaniz MD Nephrology Fellow 07/03/2022 2:47 PM RNEY LAW CLERK Associated attestation - Luiz Henderson MD - 07/03/2022 5:38 PM ATTORNEY LAW CLERK I have seen and examined the patient [...] BPH, PAD s/p L AKA [facility] Diet order accuracy Current diet order: NPO Current tube feeding order: held for aspiration Nutrition recommendation: agree with current nutrition order P.O.Intake for the past 48 hrs:No data recorded Food Allergies: No known food allergies GI Concerns: None Chewing/Swallowing: Dysphagia (w/ PEG tube) Pain affecting intake: No Admission weight: Weight: 47.6 kg (105 lb) (06/27/222130) Recent Weights/Methods 05/30/2022 1434 05/31/2022 0115 06/01/2022 [...] Laboratory values reviewed. Recent Labs Component Name 02/04/23 0405 07/02/22 0531 07/01/22 1634 06/30/22 1039 [...] Exceptions (right arm) Estimated Energy Needs: KCAL: 5462-7146 (30-35 kcal/kg ABW) Protein (g): 100 (1.2 [...] Goal Progress: New goal established Ascom: 4534 RNEY LAW CLERK * Rae Donahue DO - 07/03/2022 10:21 AM CSTAssociated Order(s): IP CONSULT TO SOCIAL SERVICE LIAISON Images from the original note were not [...] PAD s/p L AKA who presented to [facility] from [facility] w/ hypoxia. He had been admitted a [...] Component Value - Date/Time CULTURE BLOOD FUNGUS [[id number]] (Normal) Collected: 06/30/222044 Lab Status: Preliminary result Specimen: Blood Peripheral Updated: 07/02/22 1259 Culture Culture in progress RESPIRATORY PANEL WITH SARS-COV-2 BY PCR ([facility]) [[id number]] (Normal) Collected: 06/30/221951 Lab Status: Final result [...] via the [employer] Pathway. CULTURE BLOOD [[id number]] (Normal) Collected: 06/30/22 1625 Lab Status: Preliminary result Specimen: Blood Peripheral Updated: 07/02/22 1901 Culture No growth CULTURE BLOOD [[id number]] (Normal) Collected: 06/30/22 1611 Lab Status: Preliminary result Specimen: Blood Peripheral Updated: 07/02/22 1901 Culture No growth CULTURE MRSA [[id number]] (Abnormal) Collected: 06/29/22 1242 Lab Status: Final result Specimen: Microbiology from Nasal Updated: 06/30/22 2139 Culture Growth of Staphylococcus aureus methicillin-resistant (MRSA) Narrative: Methicillin-resistant Staphylococci (MRSA) are resistant to all currently available beta-lactam antibiotics with the exception of the newer cephalosporins with anti-MRSA activity. Contact precautionsrequired. LEGIONELLA ANTIGEN URINE [[id number]] (Normal) Collected: 06/28/22 0348 Lab Status: Final [...] SARS-COV-2 (COVID-19) FLU A/B RSV PCR RAPID [[id number]] (Normal) Collected: 06/27/222222 Lab Status: Final result [...] assay are available upon request. CULTURE BLOOD [[id number]] (Normal) Collected: 06/27/222214 Lab Status: Final result Specimen: Blood Peripheral Updated: 07/03/22 0200 Culture No growth day 5 CULTURE BLOOD [[id number]] (Normal) Collected: 06/27/222199 Lab Status: Final result Specimen: Blood Peripheral Updated: 07/03/22 0200 Culture No growth day 5 IMAGING: I have personally reviewed the patient's most recent imaging and note the following: XR CHEST 1VW PORTABLE Result Date: 06/27/2022 IMPRESSION: Right lower lung zone consolidative opacities, which corresponds to the consolidation seen on chest CT 06/12/2022 and consistent with pneumonia and/or aspiration pneumonitis. Report drafted by Rodolfo Naidu MD (residential carpet installer). I, Georgia Lees MD, PhD have personally [...] right. > Dictated by Brandee Celestin MD (founder and president). I, Charles Hare MD have personally [...] unremarkable. > Dictated by Alexandro Kelsey MD (founder and president) Ashwin Thomason MD have personally reviewed and interpreted this examination/study. > Interpreting Provider: Ashwin Read MD on 06/28/2022 8:38 AM ASSESSMENT/PLAN: ??? Acute hypoxic respiratory failure, currently on NC ??? Recurrent aspiration pneumonia o Currently on vanc/zosyn for 7 day course, ending 2/6 o MRSA + nasal swab ??? R [...] staffed with pulmonary attending (Dr. Abarca) Rae Donahue, DO Pulmonary/Critical Care Medicine Fellow RNEY LAW CLERK Associated attestation - Artemio Abarca MD - 07/03/2022 6:21 PM ATTORNEY LAW CLERK I saw and evaluated the patient. I reviewed the resident???s note and agree with findings and plan as documented in the resident???s note Artemio Abarca MD Division of Pulmonary, Critical Care, & Sleep Medicine [facility] P: [phone] 07/03/2022 , 6:21 PM * Blair Molina MD - 06/29/2022 5:23 PM CST Images from the original note were not included. Otolaryngology-Head and Neck Surgery Consultation Note PATIENT INFORMATION Mojgan Tabor 62 year old male Today's Date: 06/29/2022 CC: Chief Complaint Patient presents with Shortness of Breath Pt presents to emergency department via EMS for complaints of shortness of breath. Pt is from [facility] and was found in bed [...] (cerebral vascular accident) (CMS/HCC) HTN (hypertension) Seizure ([facility]) PAST SURGICAL HISTORY Past Surgical History: Procedure [...] fluticasone propionate (Flonase) 50 MCG/ACT nasal spray Bartow 1 (one) spray into each nostril as [...] daily midazolam (Nayzilam) 5 MG/0.1ML nasal spray Bartow 0.1 mL into the nose as needed [...] Labs Component Name 06/29/22 0709 06/27/22 2330 06/21/22 1926 WBC 11.1* 15.8* 9.9 HGB 10.6* 11.9* 12.9 HCT 32.4* 36.7 40.4 PLTCOUNT 142* 196 380 BMP Recent Labs Component Name 06/29/22 0709 06/27/22 2215 06/21/22 1926 06/15/22 0603 06/14/22 0524 06/13/22 0534 POTASSIUM 4.4 4.4 4.5 4.0 4.0 3.9 CO2 26 26 29 27 26 26 BUN 11 17 14 12 15 14 CREATININE 0.56* 0.78 0.58* 0.67* 0.77 0.83 GLUCOSE 102 98 116* 120* 118* 78 CALCIUM 9.5 10.3* 10.7* 9.9 9.7 9.9 PHOS - - - 3.0 2.6* 3.1 LFTs Recent Labs Component Name 06/27/22 2215 06/21/22 1926 06/15/22 0603 AST 19 19 13 ALT 6 10 9 ALKPHOS 95 88 77 Coags Recent Labs Component Name 06/27/22 2215 05/11/22 [...] questions/concerns. Blair Molina MD 06/29/2022 5:34 PM RNEY LAW CLERK Associated attestation - Alden Hurtado MD - 06/30/2022 1:03 PM ATTORNEY LAW CLERK Attending Physician Supervisory Note I personally interviewed [...] back to ICU and given to bedside FLOATING OPERATOR. RNEY LAW CLERK documented in this encounter OR Notes * [...] the hypopharynx. This was grasped with a [place] retractor retracted superiorly while we dissected along [...] 20 mL DISPOSITION: ICU Alden Hurtado MD RNEY LAW CLERK * Brief Op Note - Rodrigo Lobo [...] Rodrigo Lobo MD - Resident - Assisting Manufacturing Coordinator(s): none Anesthesia Type: general Complications: none Findings: [...] Output description Liquid;Brown 07/07/22 2100 Assessment Intact Dipak-rectal Tissue 07/07/22 2100 Balloon Inflation Fluid Amount 45 mL 07/07/22 2100 Rectal Tube Balloon Deflation Yes 07/07/22 0800 Irrigation amount 30 07/07/22 0800 Specimen(s): ID Type Source Tests Collected by Time Destination A : HYPOPHARYNGEAL DIVERTICULUM Biopsy, Excision Soft Tissue, Other PATHOLOGY TISSUE Alden Hurtado MD 07/15/2022 9:52 AM Implant(s): * No implants in log * Rodrigo Lobo MD RNEY LAW CLERK documented in this encounter ED Notes * Beatriz Cochran RN - 06/28/2022 10:22 PM CST Report giving to receiving Nurse. RNEY LAW CLERK * Merrick García RN - 06/28/2022 7:15 AM CST Report to ALFRED Avina RNEY LAW CLERK * Merrick García RN - 06/28/2022 6:59 AM CST Pt resting comfortably asleep on stretcher at this time. RR even and unlabored. Pt noted to be in no distress, Pt's call light noted to be in reach with bedrails up x2. Pt's external catheter noted to be removed. This RN changed pt and applied new catheter. RNEY LAW CLERK * Merrick García RN - 06/28/2022 5:42 AM CST Pt resting comfortably asleep on stretcher at this time. RR even and unlabored. Pt noted to be in no distress, Pt's call light noted to be in reach with bedrails up x2. RNEY LAW CLERK * Merrick García RN - 06/28/2022 4:39 AM CST Pt resting comfortably asleep on stretcher at this time. RR even and unlabored. Pt noted to be in no distress, Pt's call light noted to be in reach with bedrails up x2. OT * Merrick García RN - 06/28/2022 3:21 AM CST Pt resting comfortably asleep on stretcher at this time. RR even and unlabored. Pt noted to be in no distress, Pt's call light noted to be in reach with bedrails up x2. OT * Merrick García RN - 06/28/2022 2:31 AM CST Pt resting comfortably asleep on stretcher at this time. RR even and unlabored. Pt noted to be in no distress, Pt's call light noted to be in reach with bedrails up x2. OT * Merrick García RN - 06/28/2022 1:40 AM CST Pt resting comfortably asleep on stretcher at this time. RR even and unlabored. Pt noted to be in no distress, Pt's call light noted to be in reach with bedrails up x2. Merrick Mcdowell RN - 06/28/2022 12:53 AM CST Pt back to room from CT at this time. Pt was placed back on monitor and back on high flow. Pt denies any needs at this time. Pt's call light noted to be in reach. RNEY LAW CLERK * Merrick García RN - 06/28/2022 12:42 AM CST Pt to CT on NR at this time. RNEY LAW CLERK * Merrick García RN - 06/27/2022 11:40 PM CST Pt resting comfortably asleep on stretcher at this time. RR even and unlabored. Pt noted to be in no distress, Pt's call light noted to be in reach with bedrails up x2. RNEY LAW CLERK * Arthur Marinelli MD - 06/27/2022 11:18 PM CST Emergency Medicine Attending Note Interval History : Chief Complaint Patient presents with ??? Shortness of Breath Pt presents to emergency department via EMS for complaints of shortness of breath. Pt is from [facility] and was found in bed [...] interpreted by me.) - MONITORING: The patient's Payment Poster Rhythm was interpreted by me. The monitor tech showed sinus tachycardia. This is interpreted as [...] - Normal Narrative: Lipase results from the [employer] Alinity analyzer may not be comparable with other methodologies. MAGNESIUM BLOOD - Normal TROPONIN I - Normal PT-INR [facility] - Normal CULTURE BLOOD CULTURE BLOOD CBC W AUTO DIFFERENTIAL URINALYSIS REFLEX TO MICROSCOPIC NO CULTURE TROPONIN I - IMAGING: XR CHEST 1VW PORTABLE Final Result EXAM: XR CHEST 1VW PORTABLE DATE/TIME: 06/27/2022 10:02 PM LOCATION: [facility] HISTORY: R09.02: Hypoxia COMPARISON: Chest radiograph 06/11/2022. [...] Report drafted by Rodolfo Naidu MD (residential carpet installer). IGeorgia MD, PhD have personally reviewed and [...] Report drafted by Rodolfo Naidu MD (residential carpet installer). IGeorgia MD, PhD have personally reviewed and [...] bolus (0 mL Intravenous Stopped 06/27/22 2255) MDM: History is obtained from patient and is located in my HPI section. I also externally reviewed previous records that I had access to within [facility] and noted relevant statements in my [...] bolus (0 mL Intravenous Stopped 06/27/22 2255) Clinical Impression: 1. Hypoxia 2. Acute respiratory failure with hypoxia (CMS/HCC) Disposition: Admit to Medicine I, Dr. Marinelli, personally performed the services described in this documentation. All medical record entries made by the scribe were at my direction and in my presence. I have reviewed the chart and agree that the record reflects my personal performance and is accurate and complete. RNEY LAW CLERK * Merrick García RN - 06/27/2022 10:48 PM CST This RN at bedside. Pt noted to be incontinent of bladder. Depends changed and male external catheter applied with drainage bag. RNEY LAW CLERK * Merrick García RN - 06/27/2022 10:34 PM CST Pt resting comfortably asleep on stretcher at this time. RR even and unlabored. Pt noted to be in no distress, Pt's call light noted to be in reach with bedrails up x2. RNEY LAW CLERK * Dawn Zamorano RN - 06/27/2022 9:42 PM CST Bed: 23 Expected date: Expected time: Means of arrival: Comments: Blanche [id number] - 62M, SOB, on NRB 96% O2 RNEY LAW CLERK documented in this encounter Miscellaneous Notes * Code/Rapid Response Event - Herb Mckeon RN - 07/03/2022 3:21 PM ATTORNEY LAW CLERK RAPID RESPONSE EVENT NOTE [facility] [address] [place] [address] Patient: Mojgan Tabor Location: 812/ : 1960 Reason for Admission: No admission diagnoses are documented for this encounter. Provider Teams Team Primary Team Specialty Team Pager [facility] MED 1 Yes Internal Medicine [facility] Pulmonary Team No Pulmonary Disease Event Date/Time: 07/03/2022 1500 Summary of Events: The Rapid Response Team (ABALONE DIVER) was called regarding patient oxygen desaturation. Patient [...] placement. Herb Mckeon, RN Rapid Response Nurse RNEY LAW CLERK documented in this encounter Plan of Treatment Upcoming Encounters Date Type Department Care Team (Late st Contact Info) Description 12/05/2024 1:00 PM CDT Office Visit [facility] - Neurology [address] [place] [address], [place] [phone] Sean Raymundo, DO [address] [place] [address] [place] [phone] (work) Scheduled Orders Name Type Priority Associated Diagnoses Order Schedule INITIATE SBT (VENTILATOR LIBERATION TRIAL) PROTOCOL Respiratory Care Routine ONCE for 1 Occurrences starting 07/05/2022 until 07/05/2022 OXYGEN WITH TITRATION PROTOCOL Respiratory Care Routine ONCE for 1 Occurrences starting 07/15/2022 until 07/15/2022 documented as of this encounter Procedures Procedure Name Priority Date/Time Associated Diagnosis Comments CBC W AUTO DIFFERENTIAL AM Draw 07/21/2022 2:18 AM ATTORNEY LAW CLERK BASIC METABOLIC PANEL (CALCIUM TOTAL) AM Draw 07/21/2022 2:18 AM ATTORNEY LAW CLERK PHOSPHORUS BLOOD Routine 07/21/2022 2:18 AM ATTORNEY LAW CLERK MAGNESIUM BLOOD Routine 07/21/2022 2:18 AM ATTORNEY LAW CLERK CBC W AUTO DIFFERENTIAL AM Draw 07/20/2022 3:05 AM ATTORNEY LAW CLERK BASIC METABOLIC PANEL (CALCIUM TOTAL) AM Draw 07/20/2022 3:05 AM ATTORNEY LAW CLERK PHOSPHORUS BLOOD Routine 07/20/2022 3:05 AM ATTORNEY LAW CLERK MAGNESIUM BLOOD Routine 07/20/2022 3:05 AM ATTORNEY LAW CLERK CBC W AUTO DIFFERENTIAL AM Draw 07/19/2022 3:22 AM ATTORNEY LAW CLERK BASIC METABOLIC PANEL (CALCIUM TOTAL) AM Draw 07/19/2022 3:22 AM ATTORNEY LAW CLERK PHOSPHORUS BLOOD Routine 07/19/2022 3:22 AM ATTORNEY LAW CLERK MAGNESIUM BLOOD Routine 07/19/2022 3:22 AM ATTORNEY LAW CLERK CBC W AUTO DIFFERENTIAL AM Draw 07/18/2022 3:44 AM ATTORNEY LAW CLERK BASIC METABOLIC PANEL (CALCIUM TOTAL) AM Draw 07/18/2022 3:44 AM ATTORNEY LAW CLERK PHOSPHORUS BLOOD Routine 07/18/2022 3:44 AM ATTORNEY LAW CLERK MAGNESIUM BLOOD Routine 07/18/2022 3:44 AM ATTORNEY LAW CLERK CBC W AUTO DIFFERENTIAL AM Draw 07/17/2022 4:12 AM ATTORNEY LAW CLERK BASIC METABOLIC PANEL (CALCIUM TOTAL) AM Draw 07/17/2022 4:12 AM ATTORNEY LAW CLERK PHOSPHORUS BLOOD Routine 07/17/2022 4:12 AM ATTORNEY LAW CLERK MAGNESIUM BLOOD Routine 07/17/2022 4:12 AM ATTORNEY LAW CLERK CBC W AUTO DIFFERENTIAL AM Draw 07/16/2022 5:19 AM ATTORNEY LAW CLERK BASIC METABOLIC PANEL (CALCIUM TOTAL) AM Draw 07/16/2022 5:19 AM ATTORNEY LAW CLERK PHOSPHORUS BLOOD Routine 07/16/2022 5:19 AM ATTORNEY LAW CLERK MAGNESIUM BLOOD Routine 07/16/2022 5:19 AM ATTORNEY LAW CLERK XR CHEST 1VW PORTABLE STAT 07/16/2022 1:38 AM ATTORNEY LAW CLERK Aspiration into airway, subsequent encounter PATHOLOGY TISSUE Routine 07/15/2022 9:52 AM ATTORNEY LAW CLERK Dysphagia, oropharyngeal phase DIVERTICULECTOMY ESOPHAGEAL/ZENKERS 07/15/2022 8:11 AM ATTORNEY LAW CLERK Dysphagia, oropharyngeal phase Special Needs SUPINE TYPE + SCREEN PANEL STAT 07/15/2022 7 :05 AM ATTORNEY LAW CLERK CBC W AUTO DIFFERENTIAL AM Draw 07/15/2022 4:01 AM ATTORNEY LAW CLERK BASIC METABOLIC PANEL (CALCIUM TOTAL) AM Draw 07/15/2022 4:01 AM ATTORNEY LAW CLERK PHOSPHORUS BLOOD Routine 07/15/2022 4:01 AM ATTORNEY LAW CLERK MAGNESIUM BLOOD Routine 07/15/2022 4:01 AM ATTORNEY LAW CLERK OT EVAL AND TREAT Routine 07/14/2022 10:34 AM ATTORNEY LAW CLERK PT EVAL AND TREAT Routine 07/14/2022 10:34 AM ATTORNEY LAW CLERK CBC W AUTO DIFFERENTIAL AM Draw 07/14/2022 4:11 AM ATTORNEY LAW CLERK BASIC METABOLIC PANEL (CALCIUM TOTAL) AM Draw 07/14/2022 4:11 AM ATTORNEY LAW CLERK PHOSPHORUS BLOOD Routine 07/14/2022 4:11 AM ATTORNEY LAW CLERK MAGNESIUM BLOOD Routine 07/14/2022 4:11 AM ATTORNEY LAW CLERK CBC W AUTO DIFFERENTIAL AM Draw 07/13/2022 4:13 AM ATTORNEY LAW CLERK BASIC METABOLIC PANEL (CALCIUM TOTAL) AM Draw 07/13/2022 4:13 AM ATTORNEY LAW CLERK PHOSPHORUS BLOOD Routine 07/13/2022 4:13 AM ATTORNEY LAW CLERK MAGNESIUM BLOOD Routine 07/13/2022 4:13 AM ATTORNEY LAW CLERK CBC W AUTO DIFFERENTIAL AM Draw 07/12/2022 4:50 AM ATTORNEY LAW CLERK BASIC METABOLIC PANEL (CALCIUM TOTAL) AM Draw 07/12/2022 4:50 AM ATTORNEY LAW CLERK PHOSPHORUS BLOOD Routine 07/12/2022 4:50 AM ATTORNEY LAW CLERK MAGNESIUM BLOOD Routine 07/12/2022 4:50 AM ATTORNEY LAW CLERK CBC W AUTO DIFFERENTIAL AM Draw 07/11/2022 12:40 AM ATTORNEY LAW CLERK BASIC METABOLIC PANEL (CALCIUM TOTAL) AM Draw 07/11/2022 12:40 AM ATTORNEY LAW CLERK PHOSPHORUS BLOOD Routine 07/11/2022 12:40 AM ATTORNEY LAW CLERK MAGNESIUM BLOOD Routine 07/11/2022 12:40 AM ATTORNEY LAW CLERK CK BLOOD Add on 07/11/2022 12:40 AM ATTORNEY LAW CLERK CBC W AUTO DIFFERENTIAL AM Draw 07/10/2022 12:05 AM ATTORNEY LAW CLERK BASIC METABOLIC PANEL (CALCIUM TOTAL) AM Draw 07/10/2022 12:05 AM ATTORNEY LAW CLERK PHOSPHORUS BLOOD Routine 07/10/2022 12:05 AM ATTORNEY LAW CLERK MAGNESIUM BLOOD Routine 07/10/2022 12:05 AM ATTORNEY LAW CLERK CBC W AUTO DIFFERENTIAL AM Draw 07/09/2022 3:03 AM ATTORNEY LAW CLERK BASIC METABOLIC PANEL (CALCIUM TOTAL) Routine 07/09/2022 3:03 AM ATTORNEY LAW CLERK PHOSPHORUS BLOOD Routine 07/09/2022 3:03 AM ATTORNEY LAW CLERK MAGNESIUM BLOOD Routine 07/09/2022 3:03 AM ATTORNEY LAW CLERK VALPROIC ACID LEVEL Routine 07/09/2022 3 :03 AM ATTORNEY LAW CLERK BASIC METABOLIC PANEL (CALCIUM TOTAL) Routine 07/08/2022 8:46 PM ATTORNEY LAW CLERK BASIC METABOLIC PANEL (CALCIUM TOTAL) Routine 07/08/2022 12:22 PM ATTORNEY LAW CLERK CBC W AUTO DIFFERENTIAL AM Draw 07/08/2022 3:34 AM ATTORNEY LAW CLERK BASIC METABOLIC PANEL (CALCIUM TOTAL) Routine 07/08/2022 3:34 AM ATTORNEY LAW CLERK PHOSPHORUS BLOOD Routine 07/08/2022 3:34 AM ATTORNEY LAW CLERK MAGNESIUM BLOOD Routine 07/08/2022 3:34 AM ATTORNEY LAW CLERK BASIC METABOLIC PANEL (CALCIUM TOTAL) Routine 07/07/2022 7:57 PM ATTORNEY LAW CLERK BASIC METABOLIC PANEL (CALCIUM TOTAL) Routine 07/07/2022 12:05 PM ATTORNEY LAW CLERK CARDIAC EKG ORDER 07/07/2022 10:38 AM ATTORNEY LAW CLERK XR CHEST 1VW PORTABLE STAT 07/07/2022 8:37 AM ATTORNEY LAW CLERK Seizures (HCC) Aspiration into airway, subsequent encounter CBC W AUTO DIFFERENTIAL AM Draw 07/07/2022 3:45 AM ATTORNEY LAW CLERK BASIC METABOLIC PANEL (CALCIUM TOTAL) Routine 07/07/2022 3:45 AM ATTORNEY LAW CLERK TRIGLYCERIDES BLOOD AM Draw 07/07/2022 3 :45 AM ATTORNEY LAW CLERK PHOSPHORUS BLOOD Routine 07/07/2022 3:45 AM ATTORNEY LAW CLERK MAGNESIUM BLOOD Routine 07/07/2022 3:45 AM ATTORNEY LAW CLERK VALPROIC ACID LEVEL Routine 07/07/2022 3 :45 AM ATTORNEY LAW CLERK BASIC METABOLIC PANEL (CALCIUM TOTAL) Routine 07/06/2022 8:25 PM ATTORNEY LAW CLERK BASIC METABOLIC PANEL (CALCIUM TOTAL) Routine 07/06/2022 12:18 PM ATTORNEY LAW CLERK EEG VIDEO MONITORING Routine 07/06/2022 10:50 AM ATTORNEY LAW CLERK BLOOD GASES ART + COOX PANEL Routine 07/06/2022 5:18 AM ATTORNEY LAW CLERK CBC W AUTO DIFFERENTIAL AM Draw 07/06/2022 3:49 AM ATTORNEY LAW CLERK BASIC METABOLIC PANEL (CALCIUM TOTAL) Routine 07/06/2022 3:49 AM ATTORNEY LAW CLERK PHOSPHORUS BLOOD Routine 07/06/2022 3:49 AM ATTORNEY LAW CLERK MAGNESIUM BLOOD Routine 07/06/2022 3:49 AM ATTORNEY LAW CLERK BLOOD GASES ART + COOX PANEL Timed 07/05/2022 10:42 PM ATTORNEY LAW CLERK CULTURE BRONCHIAL WASHING+GRAM STAIN Routine 07/05/2022 10:31 PM ATTORNEY LAW CLERK CLOBAZAM QUANT BLOOD RINKU 07/05/2022 10:30 PM ATTORNEY LAW CLERK VALPROIC ACID FREE+TOTAL PANEL RINKU 07/05/2022 10:30 PM ATTORNEY LAW CLERK XR CHEST 1VW PORTABLE STAT 07/05/2022 10:14 PM ATTORNEY LAW CLERK Pulmonary infiltrate BASIC METABOLIC PANEL (CALCIUM TOTAL) Routine 07/05/2022 8:39 PM ATTORNEY LAW CLERK XR CHEST 1VW PORTABLE STAT 07/05/2022 5:23 PM ATTORNEY LAW CLERK Atelectasis, right XR CHEST 1VW PORTABLE STAT 07/05/2022 9:41 AM ATTORNEY LAW CLERK Acute respiratory failure with hypoxia (HCC) CBC W AUTO DIFFERENTIAL AM Draw 07/05/2022 2:26 AM ATTORNEY LAW CLERK BASIC METABOLIC PANEL (CALCIUM TOTAL) AM Draw 07/05/2022 2:26 AM ATTORNEY LAW CLERK PHOSPHORUS BLOOD Routine 07/05/2022 2:26 AM ATTORNEY LAW CLERK MAGNESIUM BLOOD Routine 07/05/2022 2:26 AM ATTORNEY LAW CLERK XR CHEST 1VW PORTABLE STAT 07/04/2022 1:12 PM ATTORNEY LAW CLERK Aspiration into airway, sequela XR CHEST 1VW PORTABLE STAT 07/04/2022 10:27 AM ATTORNEY LAW CLERK Aspiration pneumonitis (HCC) TSH REFLEX FREE T4 Routine 07/04/2022 1: 45 AM ATTORNEY LAW CLERK URINALYSIS REFLEX TO MICROSCOPIC NO CULTURE Routine 07/04/2022 1:45 AM ATTORNEY LAW CLERK CULTURE URINE Routine 07/04/2022 1:45 AM ATTORNEY LAW CLERK CBC W AUTO DIFFERENTIAL AM Draw 07/04/2022 1:45 AM ATTORNEY LAW CLERK BASIC METABOLIC PANEL (CALCIUM TOTAL) AM Draw 07/04/2022 1:45 AM ATTORNEY LAW CLERK PHOSPHORUS BLOOD Routine 07/04/2022 1:45 AM ATTORNEY LAW CLERK MAGNESIUM BLOOD Routine 07/04/2022 1:45 AM ATTORNEY LAW CLERK VANCOMYCIN LEVEL RANDOM Routine 07/04/2022 1:45 AM ATTORNEY LAW CLERK BLOOD GASES ART + COOX PANEL STAT 07/03/2022 5:39 PM ATTORNEY LAW CLERK XR CHEST 1VW PORTABLE STAT 07/03/2022 4:03 PM ATTORNEY LAW CLERK Pulmonary infiltrate Acute on chronic respiratory failure with hypoxia (HCC) XR CHEST 1VW PORTABLE STAT 07/03/2022 10:03 AM ATTORNEY LAW CLERK Aspiration into airway, sequela CBC W AUTO DIFFERENTIAL AM Draw 07/03/2022 4:05 AM ATTORNEY LAW CLERK BASIC METABOLIC PANEL (CALCIUM TOTAL) AM Draw 07/03/2022 4:05 AM ATTORNEY LAW CLERK VANCOMYCIN LEVEL RANDOM Routine 07/03/2022 4:05 AM ATTORNEY LAW CLERK URINALYSIS W/MICROSCOPIC NO CULTURE Routine 07/02/2022 11:37 AM ATTORNEY LAW CLERK SODIUM URINE RANDOM Routine 07/02/2022 11:37 AM ATTORNEY LAW CLERK CREATININE URINE RANDOM Routine 07/02/2022 11:37 AM ATTORNEY LAW CLERK XR CHEST 1VW PORTABLE Routine 07/02/2022 10:30 AM ATTORNEY LAW CLERK Dysphagia, oropharyngeal phase CBC W AUTO DIFFERENTIAL AM Draw 07/02/2022 5:31 AM ATTORNEY LAW CLERK BASIC METABOLIC PANEL (CALCIUM TOTAL) AM Draw 07/02/2022 5:31 AM ATTORNEY LAW CLERK VANCOMYCIN LEVEL RANDOM Timed 07/02/2022 5:31 AM ATTORNEY LAW CLERK CBC W AUTO DIFFERENTIAL AM Draw 07/01/2022 4:34 PM ATTORNEY LAW CLERK BASIC METABOLIC PANEL (CALCIUM TOTAL) AM Draw 07/01/2022 4:34 PM ATTORNEY LAW CLERK CK BLOOD Routine 07/01/2022 4:34 PM ATTORNEY LAW CLERK VANCOMYCIN LEVEL TROUGH Timed 07/01/2022 4:34 PM ATTORNEY LAW CLERK US PELVIS LIMITED Routine 07/01/2022 3:0 0 PM ATTORNEY LAW CLERK History of CVA (cerebrovascular accident) GLUCOSE - POINT OF CARE Routine 07/01/2022 5:07 AM ATTORNEY LAW CLERK CULTURE BLOOD FUNGUS Timed 06/30/2022 8:45 PM ATTORNEY LAW CLERK RESPIRATORY PANEL WITH SARS-COV-2 BY PCR (STL) Routine 06/30/2022 7:52 PM ATTORNEY LAW CLERK CULTURE BLOOD Timed 06/30/2022 4:25 PM ATTORNEY LAW CLERK CULTURE BLOOD Timed 06/30/2022 4:11 PM ATTORNEY LAW CLERK VAS RIGHT VENOUS DUPLEX UE Routine 06/30/2022 3:22 PM ATTORNEY LAW CLERK Aspiration pneumonitis (HCC) Aspiration into lower respiratory tract, initial encounter CARDIAC EKG ORDER 06/30/2022 10:43 AM ATTORNEY LAW CLERK CBC W/O DIFFERENTIAL AM Draw 06/30/2022 10:39 AM ATTORNEY LAW CLERK BASIC METABOLIC PANEL (CALCIUM TOTAL) AM Draw 06/30/2022 10:39 AM ATTORNEY LAW CLERK HEPATIC FUNCTION PANEL Routine 10:39 AM ATTORNEY LAW CLERK VANCOMYCIN LEVEL TROUGH Timed 06/30/2022 10:39 AM ATTORNEY LAW CLERK VANCOMYCIN LEVEL TROUGH Timed 06/30/2022 7:07 AM ATTORNEY LAW CLERK EKG 12-LEAD STAT 06/30/2022 3:51 AM ATTORNEY LAW CLERK Paroxysmal tachycardia, unspecified (HCC) CULTURE MRSA Routine 06/29/2022 12:42 PM ATTORNEY LAW CLERK CBC W/O DIFFERENTIAL AM Draw 06/29/2022 7:09 AM ATTORNEY LAW CLERK BASIC METABOLIC PANEL (CALCIUM TOTAL) AM Draw 06/29/2022 7:09 AM ATTORNEY LAW CLERK PROCALCITONIN LEVEL Timed 06/28/2022 5 :30 PM ATTORNEY LAW CLERK LACTIC ACID BLOOD STAT 06/28/2022 11:08 AM ATTORNEY LAW CLERK LACTIC ACID BLOOD STAT 06/28/2022 6:3 1 AM ATTORNEY LAW CLERK URINALYSIS REFLEX TO MICROSCOPIC NO CULTURE STAT 06/28/2022 3:48 AM ATTORNEY LAW CLERK LEGIONELLA ANTIGEN URINE STAT 06/28/2022 3:48 AM ATTORNEY LAW CLERK LACTIC ACID BLOOD REFLEX TO REPEAT Timed STAT 06/28/2022 1:41 AM ATTORNEY LAW CLERK LACTIC ACID REPEAT REFLEX Timed STAT 06/28/2022 1:41 AM ATTORNEY LAW CLERK TROPONIN I Timed 06/28/2022 1:41 [address] CHEST PE W ABD PELVIS W CONT STAT 06/28/2022 1:05 AM ATTORNEY LAW CLERK Hypoxia CBC W AUTO DIFFERENTIAL STAT 06/27/2022 11:30 PM ATTORNEY LAW CLERK EKG 12-LEAD Routine 06/27/2022 10:40 PM ATTORNEY LAW CLERK Hypoxia SARS-COV-2 (COVID-19) FLU A/B RSV PCR RAPID STAT 06/27/2022 10:23 PM ATTORNEY LAW CLERK PT-INR [facility] STAT 06/27/2022 10:15 PM ATTORNEY LAW CLERK LACTIC ACID BLOOD REFLEX TO REPEAT STAT 06/27/2022 10:15 PM ATTORNEY LAW CLERK LACTIC ACID REPEAT REFLEX STAT 06/27/2022 10:15 PM ATTORNEY LAW CLERK TROPONIN I STAT 06/27/2022 10:15 PM ATTORNEY LAW CLERK CULTURE BLOOD Timed 06/27/2022 10:15 PM ATTORNEY LAW CLERK COMPREHENSIVE METABOLIC PANEL STAT 06/27/2022 10:15 PM ATTORNEY LAW CLERK MAGNESIUM BLOOD STAT 06/27/2022 10:15 PM ATTORNEY LAW CLERK LIPASE BLOOD STAT 06/27/2022 10:15 PM ATTORNEY LAW CLERK HIGH FLOW NASAL CANNULA TX STAT 06/27/2022 10:02 PM ATTORNEY LAW CLERK XR CHEST 1VW PORTABLE STAT 06/27/2022 10:01 PM ATTORNEY LAW CLERK Hypoxia CULTURE BLOOD Timed 06/27/2022 10:00 PM ATTORNEY LAW CLERK documented in this encounter Results * (ABNORMAL) BASIC METABOLIC PANEL (CALCIUM TOTAL) (07/21/2022 2:18 AM ATTORNEY LAW CLERK) BUN 19 7 - 26 mg/dL 07/21/2022 2:54 AM [facility] Creatinine 0.53(L) 0.71 - 1.16 mg/dL 07/21/2022 2:54 AM [facility] Sodium 142 136 - 145 mmol/L 07/21/2022 2:54 AM [facility] Potassium 3.9 3.5 - 4.5 mmol/L 07/21/2022 2:54 AM [facility] Chloride 109(H) 98 - 107 mmol/L 07/21/2022 2:54 AM [facility] CO2 26 22 - 29 mmol/L 07/21/2022 2:54 AM [facility] Glucose 113 70 - 115 mg/dL 07/21/2022 2:54 AM [facility] Calcium 9.2 8.4 - 10.2 mg/dL 07/21/2022 2:54 AM [facility] Anion Gap 11 8 - 18 07/21/2022 2:54 AM [facility] BUN/Creatinine Ratio 36(H) 7 - 23 07/21/2022 2:54 AM [facility] Osmolality Calculated 297 270 - 300 mOsm/kg 07/21/2022 2:54 AM [facility] eGFR by CKD-EPI >90 >=90 mL/min/1.7 3 m2 07/21/2022 2:54 AM [facility] Blood BLOOD SPECIMEN / Unknown Venipuncture / Unknown 07/21/2022 2:18 AM ATTORNEY LAW CLERK 07/21/2022 2:29 AM ATTORNEY LAW CLERK Tolu Leach MD LAB - CHEMISTRY ORDByron [facility]ER[facility] [address] [address], [facility] [phone] * PHOSPHORUS BLOOD (07/21/2022 2:18 AM ATTORNEY LAW CLERK) Phosphorus 3.0 2.8 - 5.1 mg/dL 07/21/2022 2:54 AM [facility] Blood BLOOD SPECIMEN / Unknown Venipuncture / Unknown 07/21/2022 2:18 AM ATTORNEY LAW CLERK 07/21/2022 2:29 AM ATTORNEY LAW CLERK Randy Diaz MD LAB - CHEMISTRY MARSHAL [facility] [address] [address], [facility] [phone] * MAGNESIUM BLOOD (07/21/2022 2:18 AM ATTORNEY LAW CLERK) Magnesium 1.6 1.6 - 2.6 mg/dL 07/21/2022 2:54 AM [facility] Blood BLOOD SPECIMEN / Unknown Venipuncture / Unknown 07/21/2022 2:18 AM ATTORNEY LAW CLERK 07/21/2022 2:29 AM ATTORNEY LAW CLERK Randy Diaz MD LAB - CHEMISTRY MARSHAL [facility] [address] [place] [address], [facility] [phone] * (ABNORMAL) CBC W AUTO DIFFERENTIAL (07/21/2022 2:18 AM [facility]) WBC 10.2 3.5 - 10.5 10? 3 /uL 07/21/2022 2:38 AM [facility] RBC 2.45(L) 4.30 - 5.70 10? 6 /uL 07/21/2022 2:38 AM [facility] Hemoglobin 7.4(L) 12.0 - 17.6 g/dL 07/21/2022 2:38 AM [facility] Hematocrit 22.9(L) 35.2 - 51.7 % 07/21/2022 2:38 AM [facility] MCV 93.5 80.7 - 98.3 fL 07/21/2022 2:38 AM [facility] MCH 30.2 26.7 - 34.0 pg 07/21/2022 2:38 AM [facility] MCHC 32.3 30.8 - 35.9 g/dL 07/21/2022 2:38 AM [facility] RDW-SD 48.6 36.0 - 50.0 fL 07/21/2022 2:38 AM [facility] RDW-CV 14.6 11.2 - 14.8 % 07/21/2022 2:38 AM [facility] Platelet Count 252 150 - 400 10? 3 /uL 07/21/2022 2:38 AM [facility] MPV 12.7 9.4 - 12.9 fL 07/21/2022 2:38 AM [facility] nRBC Absolute 0.00 0 10? 3 /uL 07/21/2022 2:38 AM [facility] nRBC Auto 0.0 0 /100 WBC 07/21/2022 2:38 AM [facility] Neutrophils % 62.2 35.0 - 70.0 % 07/21/2022 2:38 AM [facility] Lymphocytes % 21.1 20.0 - 43.0 % 07/21/2022 2:38 AM [facility] Monocytes % 11.1 5.0 - 13.0 % 07/21/2022 2:38 AM [facility] Eosinophils % 5.0 0.0 - 6.0 % 07/21/2022 2:38 AM [facility] Basophil % 0.3 0.0 - 2.0 % 07/21/2022 2:38 AM [facility] Neutrophils Absolute 6.36 1.60 - 7.00 10? 3 /uL 07/21/2022 2:38 AM [facility] Lymphocyte Absolute 2.16 1.10 - 3.90 10? 3 /uL 07/21/2022 2:38 AM [facility] Monocytes Absolute 1.13(H) 0.26 - 1.07 10? 3 /uL 07/21/2022 2:38 AM [facility] Eosinophils Absolute 0.51(H) 0.00 - 0.47 10? 3 /uL 07/21/2022 2:38 AM [facility] Basophils Absolute 0.03 0.00 - 0.08 10? 3 /uL 07/21/2022 2:38 AM [facility] Immature Granulocytes % 0.3 0.0 - 1.0 % 07/21/2022 2:38 AM [facility] Immature Granulocytes Absolute 0.03 07/21/2022 2:38 AM [facility] Blood BLOOD SPECIMEN / Unknown Venipuncture / Unknown 07/21/2022 2:18 AM ATTORNEY LAW [employer] 07/21/2022 2:29 AM [facility] Artur Mcgraw MD LAB - HEMATOLOGY OR DERABLES [facility] [address] [place] [address], [facility] [phone] * (ABNORMAL) BASIC METABOLIC PANEL (CALCIUM TOTAL) (07/20/2022 3:05 AM [employer] [employer]) BUN 23 7 - 26 mg/dL 07/20/2022 3:46 AM [facility] Creatinine 0.71 0.71 - 1.16 mg/dL 07/20/2022 3:46 AM [facility] Sodium 139 136 - 145 mmol/L 07/20/2022 3:46 AM [facility] Potassium 3.6 3.5 - 4.5 mmol/L 07/20/2022 3:46 AM [facility] Chloride 106 98 - 107 mmol/L 07/20/2022 3:46 AM [facility] CO2 25 22 - 29 mmol/L 07/20/2022 3:46 AM [facility] Glucose 108 70 - 115 mg/dL 07/20/2022 3:46 AM [facility] Calcium 9.4 8.4 - 10.2 mg/dL 07/20/2022 3:46 AM [facility] Anion Gap 12 8 - 18 07/20/2022 3:46 AM [facility] BUN/Creatinine Ratio 32(H) 7 - 23 07/20/2022 3:46 AM [facility] Osmolality Calculated 292 270 - 300 mOsm/kg 07/20/2022 3:46 AM [facility] eGFR by CKD-EPI >90 >=90 mL/min/1.7 3 m2 07/20/2022 3:46 AM [facility] Blood BLOOD SPECIMEN / Unknown Venipuncture / Unknown 07/20/2022 3:05 AM [facility] 07/20/2022 3:15 AM [facility] Tolu Leach MD LAB - CHEMISTRY [place] [facility] [address] [place] [address], [facility] [phone] * PHOSPHORUS BLOOD (07/20/2022 3:05 AM [facility]) Phosphorus 2.8 2.8 - 5.1 mg/dL 07/20/2022 3:46 AM [facility] Blood BLOOD SPECIMEN / Unknown Venipuncture / Unknown 07/20/2022 3:05 AM [employer] 07/20/2022 3:15 AM [employer] [employer] Randy Diaz MD LAB - CHEMISTRY [facility] [address] [address], [facility] [phone] * MAGNESIUM BLOOD (07/20/2022 3:05 AM [employer] [employer]) Magnesium 1.6 1.6 - 2.6 mg/dL 07/20/2022 3:46 AM [facility] Blood BLOOD SPECIMEN / Unknown Venipuncture / Unknown 07/20/2022 3:05 AM ATTORNEY LAW CLERK 07/20/2022 3:15 AM ATTORNEY LAW CLERK Randy Diaz MD LAB - CHEMISTRY MARSHAL MEDEROS Performing Organization Address [facility]/ZIP Co de Phone Number [address] [address], [facility] [phone] * (ABNORMAL) CBC W AUTO DIFFERENTIAL (07/20/2022 3:05 AM ATTORNEY LAW CLERK) WBC 9.3 3.5 - 10.5 10? 3 /uL 07/20/2022 3:19 AM [facility] RBC 2.49(L) 4.30 - 5.70 10? 6 /uL 07/20/2022 3:19 AM [facility] Hemoglobin 7.8(L) 12.0 - 17.6 g/dL 07/20/2022 3:19 AM [facility] Hematocrit 23.1(L) 35.2 - 51.7 % 07/20/2022 3:19 AM [facility] MCV 92.8 80.7 - 98.3 fL 07/20/2022 3:19 AM [facility] MCH 31.3 26.7 - 34.0 pg 07/20/2022 3:19 AM [facility] MCHC 33.8 30.8 - 35.9 g/dL 07/20/2022 3:19 AM [facility] RDW-SD 48.2 36.0 - 50.0 fL 07/20/2022 3:19 AM [facility] RDW-CV 14.5 11.2 - 14.8 % 07/20/2022 3:19 AM [facility] Platelet Count 283 150 - 400 10? 3 /uL 07/20/2022 3:19 AM [facility] MPV 12.2 9.4 - 12.9 fL 07/20/2022 3:19 AM [facility] nRBC Absolute 0.00 0 10? 3 /uL 07/20/2022 3:19 AM [facility] nRBC Auto 0.0 0 /100 WBC 07/20/2022 3:19 AM [facility] Neutrophils % 61.2 35.0 - 70.0 % 07/20/2022 3:19 AM [facility] Lymphocytes % 19.5(L) 20.0 - 43.0 % 07/20/2022 3:19 AM [facility] Monocytes % 12.5 5.0 - 13.0 % 07/20/2022 3:19 AM [facility] Eosinophils % 6.2(H) 0.0 - 6.0 % 07/20/2022 3:19 AM [facility] Basophil % 0.3 0.0 - 2.0 % 07/20/2022 3:19 AM [facility] Neutrophils Absolute 5.69 1.60 - 7.00 10? 3 /uL 07/20/2022 3:19 AM [facility] Lymphocyte Absolute 1.82 1.10 - 3.90 10? 3 /uL 07/20/2022 3:19 AM [facility] Monocytes Absolute 1.16(H) 0.26 - 1.07 10? 3 /uL 07/20/2022 3:19 AM [facility] Eosinophils Absolute 0.58(H) 0.00 - 0.47 10? 3 /uL 07/20/2022 3:19 AM [facility] Basophils Absolute 0.03 0.00 - 0.08 10? 3 /uL 07/20/2022 3:19 AM [facility] Immature Granulocytes % 0.3 0.0 - 1.0 % 07/20/2022 3:19 AM [facility] Immature Granulocytes Absolute 0.03 07/20/2022 3:19 AM [facility] Blood BLOOD SPECIMEN / Unknown Venipuncture / Unknown 07/20/2022 3:05 AM ATTORNEY LAW CLERK 07/20/2022 3:15 AM ATTORNEY LAW CLERK Artur Mcgraw MD LAB - HEMATOLOGY OR DERABLES [facility] [address] [place] [address], [facility] [phone] * (ABNORMAL) BASIC METABOLIC PANEL (CALCIUM TOTAL) (07/19/2022 3:22 AM ATTORNEY LAW CLERK) BUN 21 7 - 26 mg/dL 07/19/2022 4:06 AM [facility] Creatinine 0.86 0.71 - 1.16 mg/dL 07/19/2022 4:06 AM [facility] Sodium 140 136 - 145 mmol/L 07/19/2022 4:06 AM [facility] Potassium 3.9 3.5 - 4.5 mmol/L 07/19/2022 4:06 AM [facility] Chloride 108(H) 98 - 107 mmol/L 07/19/2022 4:06 AM [facility] CO2 25 22 - 29 mmol/L 07/19/2022 4:06 AM [facility] Glucose 109 70 - 115 mg/dL 07/19/2022 4:06 AM [facility] Calcium 8.9 8.4 - 10.2 mg/dL 07/19/2022 4:06 AM [facility] Anion Gap 11 8 - 18 07/19/2022 4:06 AM [facility] BUN/Creatinine Ratio 24(H) 7 - 23 07/19/2022 4:06 AM [facility] Osmolality Calculated 294 270 - 300 mOsm/kg 07/19/2022 4:06 AM [facility] eGFR by CKD-EPI >90 >=90 mL/min/1.7 3 m2 07/19/2022 4:06 AM [facility] Blood BLOOD SPECIMEN / Unknown Venipuncture / Unknown 07/19/2022 3:22 AM ATTORNEY LAW CLERK 07/19/2022 3:28 AM ATTORNEY LAW CLERK Tolu Leach MD LAB - CHEMISTRY MARSHAL MEDEROS Performing Organization Address City/[facility]/ZIP Co de Phone Number [address] [address], [facility] [phone] * PHOSPHORUS BLOOD (07/19/2022 3:22 AM ATTORNEY LAW CLERK) Phosphorus 2.8 2.8 - 5.1 mg/dL 07/19/2022 4:06 AM ATTORNEY LAW CLERK [facility] Blood BLOOD SPECIMEN / Unknown Venipuncture / Unknown 07/19/2022 3:22 AM ATTORNEY LAW CLERK 07/19/2022 3:28 AM ATTORNEY LAW CLERK Randy Diaz MD LAB - CHEMISTRY MARSHAL MEDEROS Performing Organization Address City/[facility]/ZIP Co de Phone Number [address] [address], [facility] [phone] * MAGNESIUM BLOOD (07/19/2022 3:22 AM ATTORNEY LAW CLERK) Magnesium 1.7 1.6 - 2.6 mg/dL 07/19/2022 4:06 AM ATTORNEY LAW CLERK [facility] Blood BLOOD SPECIMEN / Unknown Venipuncture / Unknown 07/19/2022 3:22 AM ATTORNEY LAW CLERK 07/19/2022 3:28 AM ATTORNEY LAW CLERK Randy Diaz MD LAB - CHEMISTRY MARSHAL MEDEROS Performing Organization Address City/[facility]/ZIP Co de Phone Number [address] [address], [facility] [phone] * (ABNORMAL) CBC W AUTO DIFFERENTIAL (07/19/2022 3:22 AM ATTORNEY LAW CLERK) WBC 9.2 3.5 - 10.5 10? 3 /uL 07/19/2022 3:40 AM [facility] RBC 2.31(L) 4.30 - 5.70 10? 6 /uL 07/19/2022 3:40 AM [facility] Hemoglobin 7.1(L) 12.0 - 17.6 g/dL 07/19/2022 3:40 AM [facility] Hematocrit 21.6(L) 35.2 - 51.7 % 07/19/2022 3:40 AM [facility] MCV 93.5 80.7 - 98.3 fL 07/19/2022 3:40 AM [facility] MCH 30.7 26.7 - 34.0 pg 07/19/2022 3:40 AM [facility] MCHC 32.9 30.8 - 35.9 g/dL 07/19/2022 3:40 AM [facility] RDW-SD 48.3 36.0 - 50.0 fL 07/19/2022 3:40 AM [facility] RDW-CV 14.5 11.2 - 14.8 % 07/19/2022 3:40 AM [facility] Platelet Count 230 150 - 400 10? 3 /uL 07/19/2022 3:40 AM [facility] MPV 12.1 9.4 - 12.9 fL 07/19/2022 3:40 AM [facility] nRBC Absolute 0.00 0 10? 3 /uL 07/19/2022 3:40 AM [facility] nRBC Auto 0.0 0 /100 WBC 07/19/2022 3:40 AM [facility] Neutrophils % 61.9 35.0 - 70.0 % 07/19/2022 3:40 AM [facility] Lymphocytes % 19.6(L) 20.0 - 43.0 % 07/19/2022 3:40 AM [facility] Monocytes % 14.1(H) 5.0 - 13.0 % 07/19/2022 3:40 AM [facility] Eosinophils % 3.7 0.0 - 6.0 % 07/19/2022 3:40 AM [facility] Basophil % 0.2 0.0 - 2.0 % 07/19/2022 3:40 AM [facility] Neutrophils Absolute 5.69 1.60 - 7.00 10? 3 /uL 07/19/2022 3:40 AM [facility] Lymphocyte Absolute 1.80 1.10 - 3.90 10? 3 /uL 07/19/2022 3:40 AM [facility] Monocytes Absolute 1.30(H) 0.26 - 1.07 10? 3 /uL 07/19/2022 3:40 AM [facility] Eosinophils Absolute 0.34 0.00 - 0.47 10? 3 /uL 07/19/2022 3:40 AM [facility] Basophils Absolute 0.02 0.00 - 0.08 10? 3 /uL 07/19/2022 3:40 AM [facility] Immature Granulocytes % 0.5 0.0 - 1.0 % 07/19/2022 3:40 AM [facility] Immature Granulocytes Absolute 0.05 07/19/2022 3:40 AM [facility] Blood BLOOD SPECIMEN / Unknown Venipuncture / Unknown 07/19/2022 3:22 AM ATTORNEY LAW CLERK 07/19/2022 3:28 AM [facility] Artur Mcgraw MD LAB - HEMATOLOGY OR DERABLES Performing Organization Address [facility] Co de Phone Number [address] [address] [phone] * (ABNORMAL) BASIC METABOLIC PANEL (CALCIUM TOTAL) (07/18/2022 3:44 AM ATTORNEY LAW CLERK) BUN 18 7 - 26 mg/dL 07/18/2022 4:26 AM [facility] Creatinine 0.94 0.71 - 1.16 mg/dL 07/18/2022 4:26 AM [facility] Sodium 140 136 - 145 mmol/L 07/18/2022 4:26 AM [facility] Potassium 3.6 3.5 - 4.5 mmol/L 07/18/2022 4:26 AM [facility] Chloride 109(H) 98 - 107 mmol/L 07/18/2022 4:26 AM [facility] CO2 25 22 - 29 mmol/L 07/18/2022 4:26 AM [facility] Glucose 107 70 - 115 mg/dL 07/18/2022 4:26 AM [facility] Calcium 8.8 8.4 - 10.2 mg/dL 07/18/2022 4:26 AM ATTORNEY LAW CLERK [facility] Anion Gap 10 8 - 18 07/18/2022 4:26 AM [facility] BUN/Creatinine Ratio 19 7 - 23 07/18/2022 4:26 AM [facility] Osmolality Calculated 292 270 - 300 mOsm/kg 07/18/2022 4:26 AM [facility] eGFR by CKD-EPI >90 >=90 mL/min/1.7 3 m2 07/18/2022 4:26 AM [facility] Blood BLOOD SPECIMEN / Unknown Venipuncture / Unknown 07/18/2022 3:44 AM [employer]OR[employer] CLERK 07/18/2022 3:56 AM [employer]ORNEY LAW CLERK Tolu Leach MD LAB - CHEMISTRY MARSHAL MEDEROS [address] [address], [place] [phone] * PHOSPHORUS BLOOD (07/18/2022 3:44 AM ATTORNEY LAW CLERK) Phosphorus 2.9 2.8 - 5.1 mg/dL 07/18/2022 4:26 AM ATTORNEY LAW CLERK [facility] Blood BLOOD SPECIMEN / Unknown Venipuncture / Unknown 07/18/2022 3:44 AM ATTORNEY LAW CLERK 07/18/2022 3:56 AM ATTORNEY LAW CLERK Randy Diaz MD LAB - CHEMISTRY MARSHAL MEDEROS Performing Organization Address City/[facility]/ZIP Co de Phone Number [address] [address], [place] [phone] * MAGNESIUM BLOOD (07/18/2022 3:44 AM ATTORNEY LAW CLERK) Magnesium 1.7 1.6 - 2.6 mg/dL 07/18/2022 4:26 AM ATTORNEY LAW CLERK [facility] Blood BLOOD SPECIMEN / Unknown Venipuncture / Unknown 07/18/2022 3:44 AM ATTORNEY LAW CLERK 07/18/2022 3:56 AM ATTORNEY LAW CLERK Randy Diaz MD LAB - CHEMISTRY MARSHAL MEDEROS [facility] [address] [place] [address] [phone] * (ABNORMAL) CBC W AUTO DIFFERENTIAL (07/18/2022 3:44 AM [facility]) WBC 8.6 3.5 - 10.5 10? 3 /uL 07/18/2022 4:10 AM [facility] RBC 2.33(L) 4.30 - 5.70 10? 6 /uL 07/18/2022 4:10 AM [facility] Hemoglobin 7.2(L) 12.0 - 17.6 g/dL 07/18/2022 4:10 AM [facility] Hematocrit 21.6(L) 35.2 - 51.7 % 07/18/2022 4:10 AM [facility] MCV 92.7 80.7 - 98.3 fL 07/18/2022 4:10 AM [facility] MCH 30.9 26.7 - 34.0 pg 07/18/2022 4:10 AM [facility] MCHC 33.3 30.8 - 35.9 g/dL 07/18/2022 4:10 AM [facility] RDW-SD 47.3 36.0 - 50.0 fL 07/18/2022 4:10 AM [facility] RDW-CV 14.3 11.2 - 14.8 % 07/18/2022 4:10 AM [facility] Platelet Count 201 150 - 400 10? 3 /uL 07/18/2022 4:10 AM [facility] MPV 12.5 9.4 - 12.9 fL 07/18/2022 4:10 AM [facility] nRBC Absolute 0.00 0 10? 3 /uL 07/18/2022 4:10 AM [facility] nRBC Auto 0.0 0 /100 WBC 07/18/2022 4:10 AM [facility] Neutrophils % 61.4 35.0 - 70.0 % 07/18/2022 4:10 AM [facility] Lymphocytes % 20.3 20.0 - 43.0 % 07/18/2022 4:10 AM [facility] Monocytes % 13.1(H) 5.0 - 13.0 % 07/18/2022 4:10 AM [facility] Eosinophils % 4.6 0.0 - 6.0 % 07/18/2022 4:10 AM [facility] Basophil % 0.1 0.0 - 2.0 % 07/18/2022 4:10 AM [facility] Neutrophils Absolute 5.27 1.60 - 7.00 10? 3 /uL 07/18/2022 4:10 AM [facility] Lymphocyte Absolute 1.74 1.10 - 3.90 10? 3 /uL 07/18/2022 4:10 AM [facility] Monocytes Absolute 1.12(H) 0.26 - 1.07 10? 3 /uL 07/18/2022 4:10 AM [facility] Eosinophils Absolute 0.39 0.00 - 0.47 10? 3 /uL 07/18/2022 4:10 AM [facility] Basophils Absolute 0.01 0.00 - 0.08 10? 3 /uL 07/18/2022 4:10 AM [facility] Immature Granulocytes % 0.5 0.0 - 1.0 % 07/18/2022 4:10 AM [facility] Immature Granulocytes Absolute 0.04 07/18/2022 4:10 AM [facility] Blood BLOOD SPECIMEN / Unknown Venipuncture / Unknown 07/18/2022 3:44 AM ATTORNEY LAW CLERK 07/18/2022 3:57 AM [facility] Artur Mcgraw MD LAB - HEMATOLOGY OR DERABLES Performing Organization Address City/State/[facility] Co de Phone Number [facility] [address] [place] [address], [facility] [phone] * (ABNORMAL) BASIC METABOLIC PANEL (CALCIUM TOTAL) (07/17/2022 4:12 AM [facility]) BUN 16 7 - 26 mg/dL 07/17/2022 6:56 AM [facility] Creatinine 1.05 0.71 - 1.16 mg/dL 07/17/2022 6:56 AM [facility] Sodium 141 136 - 145 mmol/L 07/17/2022 6:56 AM [facility] Potassium 3.5 3.5 - 4.5 mmol/L 07/17/2022 6:56 AM [facility] Chloride 108(H) 98 - 107 mmol/L 07/17/2022 6:56 AM [facility] CO2 25 22 - 29 mmol/L 07/17/2022 6:56 AM [facility] Glucose 110 70 - 115 mg/dL 07/17/2022 6:56 AM [facility] Calcium 8.5 8.4 - 10.2 mg/dL 07/17/2022 6:56 AM [facility] Anion Gap 12 8 - 18 07/17/2022 6:56 AM [facility] BUN/Creatinine Ratio 15 7 - 23 07/17/2022 6:56 AM [facility] Osmolality Calculated 294 270 - 300 mOsm/kg 07/17/2022 6:56 AM [facility] eGFR by CKD-EPI 81(L) >=90 mL/min/1.7 3 m2 07/17/2022 6:56 AM [facility] Blood BLOOD SPECIMEN / Unknown Venipuncture / Unknown 07/17/2022 4:12 AM ATTORNEY LAW CLERK 07/17/2022 4:26 AM ATTORNEY LAW CLERK Tolu Leach MD LAB - CHEMISTRY ORDByron MEDEROS [address] [address], [place] [phone] * PHOSPHORUS BLOOD (07/17/2022 4:12 AM ATTORNEY LAW CLERK) Phosphorus 3.5 2.8 - 5.1 mg/dL 07/17/2022 5:54 AM [facility] Blood BLOOD SPECIMEN / Unknown Venipuncture / Unknown 07/17/2022 4:12 AM ATTORNEY LAW CLERK 07/17/2022 4:26 AM ATTORNEY LAW CLERK Randy Diaz MD LAB - CHEMISTRY MARSHAL MEDEROS [address] [address], [place] [phone] * MAGNESIUM BLOOD (07/17/2022 4:12 AM ATTORNEY LAW CLERK) Pathologist [facility] Magnesium 1.8 1.6 - 2.6 mg/dL 07/17/2022 4:56 AM [facility] Blood BLOOD SPECIMEN / Unknown Venipuncture / Unknown 07/17/2022 4:12 AM ATTORNEY LAW CLERK 07/17/2022 4:26 AM ATTORNEY LAW CLERK Randy Diaz MD LAB - CHEMISTRY ORDE [place] [facility] [address] [place] [address], [facility] [phone] * (ABNORMAL) CBC W AUTO DIFFERENTIAL (07/17/2022 4:12 AM ATTORNEY LAW CLERK) WBC 8.9 3.5 - 10.5 10? 3 /uL 07/17/2022 4:24 AM [facility] RBC 2.36(L) 4.30 - 5.70 10? 6 /uL 07/17/2022 4:24 AM [facility] Hemoglobin 7.4(L) 12.0 - 17.6 g/dL 07/17/2022 4:24 AM [facility] Hematocrit 21.6(L) 35.2 - 51.7 % 07/17/2022 4:24 AM [facility] MCV 91.5 80.7 - 98.3 fL 07/17/2022 4:24 AM [facility] MCH 31.4 26.7 - 34.0 pg 07/17/2022 4:24 AM [facility] MCHC 34.3 30.8 - 35.9 g/dL 07/17/2022 4:24 AM [facility] RDW-SD 46.2 36.0 - 50.0 fL 07/17/2022 4:24 AM [facility] RDW-CV 14.3 11.2 - 14.8 % 07/17/2022 4:24 AM [facility] Platelet Count 189 150 - 400 10? 3 /uL 07/17/2022 4:24 AM [facility] MPV 12.4 9.4 - 12.9 fL 07/17/2022 4:24 AM [facility] nRBC Absolute 0.00 0 10? 3 /uL 07/17/2022 4:24 AM [facility] nRBC Auto 0.0 0 /100 WBC 07/17/2022 4:24 AM [facility] Neutrophils % 62.8 35.0 - 70.0 % 07/17/2022 4:24 AM [facility] Lymphocytes % 18.9(L) 20.0 - 43.0 % 07/17/2022 4:24 AM [facility] Monocytes % 14.6(H) 5.0 - 13.0 % 07/17/2022 4:24 AM [facility] Eosinophils % 3.1 0.0 - 6.0 % 07/17/2022 4:24 AM [facility] Basophil % 0.1 0.0 - 2.0 % 07/17/2022 4:24 AM [facility] Neutrophils Absolute 5.57 1.60 - 7.00 10? 3 /uL 07/17/2022 4:24 AM [facility] Lymphocyte Absolute 1.67 1.10 - 3.90 10? 3 /uL 07/17/2022 4:24 AM [facility] Monocytes Absolute 1.29(H) 0.26 - 1.07 10? 3 /uL 07/17/2022 4:24 AM [facility] Eosinophils Absolute 0.27 0.00 - 0.47 10? 3 /uL 07/17/2022 4:24 AM [facility] Basophils Absolute 0.01 0.00 - 0.08 10? 3 /uL 07/17/2022 4:24 AM [facility] Immature Granulocytes % 0.5 0.0 - 1.0 % 07/17/2022 4:24 AM [facility] Immature Granulocytes Absolute 0.04 07/17/2022 4:24 AM [facility] Blood BLOOD SPECIMEN / Unknown Venipuncture / Unknown 07/17/2022 4:12 AM [employer] [employer] CLERK 07/17/2022 4:21 AM [facility] Artur Mcgraw MD LAB - HEMATOLOGY OR DERABLES [facility] [address] [place] [address], [facility] [phone] * (ABNORMAL) BASIC METABOLIC PANEL (CALCIUM TOTAL) (07/16/2022 5:19 AM [facility]) BUN 22 7 - 26 mg/dL 07/16/2022 6:15 AM [facility] Creatinine 1.21(H) 0.71 - 1.16 mg/dL 07/16/2022 6:15 AM [facility] Sodium 140 136 - 145 mmol/L 07/16/2022 6:15 AM [facility] Potassium 3.2(L) 3.5 - 4.5 mmol/L 07/16/2022 6:15 AM [facility] Chloride 108(H) 98 - 107 mmol/L 07/16/2022 6:15 AM [facility] CO2 22 22 - 29 mmol/L 07/16/2022 6:15 AM [facility] Glucose 113 70 - 115 mg/dL 07/16/2022 6:15 AM [facility] Calcium 8.8 8.4 - 10.2 mg/dL 07/16/2022 6:15 AM [facility] Anion Gap 13 8 - 18 07/16/2022 6:15 AM [facility] BUN/Creatinine Ratio 18 7 - 23 07/16/2022 6:15 AM [facility] Osmolality Calculated 294 270 - 300 mOsm/kg 07/16/2022 6:15 AM [facility] eGFR by CKD-EPI 68(L) >=90 mL/min/1.7 3 m2 07/16/2022 6:15 AM [facility] Blood BLOOD SPECIMEN / Unknown Venipuncture / Unknown 07/16/2022 5:19 AM [employer] [employer] 07/16/2022 5:38 AM [facility] Tolu Leach MD LAB - CHEMISTRY MARSHAL MEDEROS [facility] [address] [place] [address], [facility] [phone] * (ABNORMAL) PHOSPHORUS BLOOD (07/16/2022 5:19 AM ATTORNEY LAW CLERK) [facility] Phosphorus 2.1(L) 2.8 - 5.1 mg/dL 07/16/2022 6:15 AM [facility] Blood BLOOD SPECIMEN / Unknown Venipuncture / Unknown 07/16/2022 5:19 AM [employer] [employer] 07/16/2022 5:38 AM [employer]OR[facility] [employer] CL[employer] Randy Diaz MD LAB - CHEMISTRY MARSHAL MEDEROS [address] [address], [facility] [phone] * MAGNESIUM BLOOD (07/16/2022 5:19 AM ATTORNEY LAW CLERK) [facility] Magnesium 1.6 1.6 - 2.6 mg/dL 07/16/2022 6:15 AM [facility] Blood BLOOD SPECIMEN / Unknown Venipuncture / Unknown 07/16/2022 5:19 AM [employer] [employer] 07/16/2022 5:38 AM [employer] [employer] CL[employer] Randy Diaz MD LAB - CHEMISTRY MARSHAL MEDEROS [address] [address], [place] [phone] * (ABNORMAL) CBC W AUTO DIFFERENTIAL (07/16/2022 5:19 AM ATTORNEY LAW CLERK) [facility] WBC 9.9 3.5 - 10.5 10? 3 /uL 07/16/2022 7:02 AM [facility] RBC 2.51(L) 4.30 - 5.70 10? 6 /uL 07/16/2022 7:02 AM [facility] Hemoglobin 7.7(L) 12.0 - 17.6 g/dL 07/16/2022 7:02 AM [facility] Hematocrit 22.5(L) 35.2 - 51.7 % 07/16/2022 7:02 AM [facility] MCV 89.6 80.7 - 98.3 fL 07/16/2022 7:02 AM [facility] MCH 30.7 26.7 - 34.0 pg 07/16/2022 7:02 AM [facility] MCHC 34.2 30.8 - 35.9 g/dL 07/16/2022 7:02 AM [facility] RDW-SD 44.6 36.0 - 50.0 fL 07/16/2022 7:02 AM [facility] RDW-CV 14.0 11.2 - 14.8 % 07/16/2022 7:02 AM [facility] Platelet Count 179 150 - 400 10? 3 /uL 07/16/2022 7:02 AM [facility] MPV 12.8 9.4 - 12.9 fL 07/16/2022 7:02 AM [facility] nRBC Absolute 0.00 0 10? 3 /uL 07/16/2022 7:02 AM [facility] nRBC Auto 0.0 0 /100 WBC 07/16/2022 7:02 AM [facility] Neutrophils % 63.2 35.0 - 70.0 % 07/16/2022 7:02 AM [facility] Lymphocytes % 17.5(L) 20.0 - 43.0 % 07/16/2022 7:02 AM [facility] Monocytes % 17.5(H) 5.0 - 13.0 % 07/16/2022 7:02 AM [facility] Eosinophils % 1.0 0.0 - 6.0 % 07/16/2022 7:02 AM [facility] Basophil % 0.2 0.0 - 2.0 % 07/16/2022 7:02 AM [facility] Neutrophils Absolute 6.23 1.60 - 7.00 10? 3 /uL 07/16/2022 7:02 AM [facility] Lymphocyte Absolute 1.73 1.10 - 3.90 10? 3 /uL 07/16/2022 7:02 AM [facility] Monocytes Absolute 1.73(H) 0.26 - 1.07 10? 3 /uL 07/16/2022 7:02 AM [facility] Eosinophils Absolute 0.10 0.00 - 0.47 10? 3 /uL 07/16/2022 7:02 AM [facility] Basophils Absolute 0.02 0.00 - 0.08 10? 3 /uL 07/16/2022 7:02 AM [facility] Immature Granulocytes % 0.6 0.0 - 1.0 % 07/16/2022 7:02 AM [facility] Immature Granulocytes Absolute 0.06 07/16/2022 7:02 AM [facility] Blood BLOOD SPECIMEN / Unknown Venipuncture / Unknown 07/16/2022 5:19 AM [employer] [employer] 07/16/2022 5:38 AM [employer] [employer] Artur Mcgraw MD LAB - HEMATOLOGY OR DERABLES [facility] [address] [place] [id number], [facility] [phone] * XR CHEST 1VW PORTABLE (07/16/2022 1:38 AM [employer]ORNEY LAW CLERK) Anatomical Region Laterality Modality Chest Radiographic Cynthia ging 07/16/2022 9:23 AM [employer]NEY LAW [employer] Narrative 07/17/2022 11:23 AM [employer] [employer] PROCEDURE: ??XR CHEST 1VW PORTABLE, DATE/TIME OF EXAM: ??07/16/2022 1:38 AM, LOCATION ??[facility] INDICATION: T17.908D: Aspiration into airway, subsequent encounter [...] is intact. > Dictated by Arthur Hawk (Hall Worker) I, John Graham MD have personally reviewed and interpreted this examination/study. > Interpreting Provider: John Graham MD on 07/17/2022 11:23 AM Procedure Note John Graham MD - 07/17/2022 PROCEDURE: XR CHEST 1VW PORTABLE, DATE/TIME OF EXAM: 07/16/2022 1:38AM, LOCATION [facility] INDICATION: T17.908D: Aspiration into airway, subsequent encounter [...] is intact. > Dictated by Arthur Hawk (Hall Worker) I, John Graham MD have personally reviewed and interpreted this examination/study. > Interpreting Provider: John Graham MD on 07/17/2022 11:23 AM Artemio Abarca MD DIAGNOSTIC IMAGING O RDERABLES * PATHOLOGY TISSUE (07/15/2022 9:52 AM [employer] [employer]) Case Report Surgical Pathology Report ? Case: [id number] ? Authorizing Provider: ??Alden Hurtado MD ?Collected: ? 07/15/2022 09:52 AM ? Ordering Location: ? [facility] ? Received: ?07/15/2022 12:19 PM ? Pathologist: ? Loretta Hernandez MD ? Specimen: ?Oropharynx, HYPOPHARYNGEAL DIVERTICULUM ? 07/19/2022 11:20 AM [facility] Final Diagnosis Oropharynx, hypopharyngeal diverticulum, diverticulectomy (A): - Zenker's diverticulum 07/19/2022 11:20 AM [facility] Microscopic Description and Comment Microscopic examination substantiates the final diagnosis. Sections show squamous mucosa without associated muscular wall, compatible with diverticulum. 07/19/2022 11:20 AM [facility] Clinical History The patient is a 62-year-old man with history of seizure disorder and Zenker's diverticulum. Operative procedure-transcervic al Zenker's diverticulectomy with Cricopharyngeal myotomy. 07/19/2022 11:20 AM [facility] Gross Description The requisition and specimen are labeled with the patient's name,Mojgan Tabor. Received in formalin, specimen A is a gerard-pink soft tissue with 1 and stapled. Opened to show diverticulum. Solderer Dipper sections submitted in A1. 07/19/2022 11:20 AM [facility] Disclaimer The performance characteristics of all immunohistochemical and indirect immunofluorescence stains (if any) cited in this report were determined by the Histopathology Laboratory of [facility]. Some of these tests were developed [...] the attending (teaching) pathologist. 07/19/2022 11:20 AM [facility] Embedded Images 07/19/2022 11:20 AM [facility] Biopsy, Excision (Oropharynx) 07/15/2022 9:52 AM [employer] [employer] CL[employer] 07/15/2022 12:19 PM ATTORNEY LAW CLERK Comment:Pre-op diagnosis: DYSPHAGIA OROPHARYNGEAL PHASE Alden Hurtado MD LAB - PATHOLOGY/CYTO LOGY ORDERABLES Performing Organization Address City/[facility]/ZIP Co de Phone Number [facility] [address] [phone] * TYPE + SCREEN PANEL (07/15/2022 7:05 AM [facility]) Pathologist [facility] Antibody Screen NEG 8:16 AM [facility] ABO Rh O POS 07/15/2022 8:16 AM [facility] Blood Bank BLOOD SPECIMEN / Unknown Venipuncture / Unknown 07/15/2022 7:05 AM [employer] 07/15/2022 7:15 AM [facility] Artemio Abarca MD LAB - BLOOD BANK ORD ERABLES Performing Organization Address [facility] Co de Phone Number [facility] [address] [phone] * (ABNORMAL) BASIC METABOLIC PANEL (CALCIUM TOTAL) (07/15/2022 4:01 AM [facility]) Pathologist [facility] BUN 26 7 - 26 mg/dL 07/15/2022 4:46 AM [facility] Creatinine 1.13 0.71 - 1.16 mg/dL 07/15/2022 4:46 AM [facility] Sodium 143 136 - 145 mmol/L 07/15/2022 4:46 AM [facility] Potassium 3.6 3.5 - 4.5 mmol/L 07/15/2022 4:46 AM [facility] Chloride 107 98 - 107 mmol/L 07/15/2022 4:46 AM [facility] CO2 26 22 - 29 mmol/L 07/15/2022 4:46 AM [facility] Glucose 89 70 - 115 mg/dL 07/15/2022 4:46 AM [facility] Calcium 9.6 8.4 - 10.2 mg/dL 07/15/2022 4:46 AM [facility] Anion Gap 14 8 - 18 07/15/2022 4:46 AM [facility] BUN/Creatinine Ratio 23 7 - 23 07/15/2022 4:46 AM [facility] Osmolality Calculated 300 270 - 300 mOsm/kg 07/15/2022 4:46 AM [facility] eGFR by CKD-EPI 74(L) >=90 mL/min/1.7 3 m2 07/15/2022 4:46 AM [facility] Blood BLOOD SPECIMEN / Unknown Venipuncture / Unknown 07/15/2022 4:01 AM [employer] [employer] 07/15/2022 4:09 AM [employer] [employer] Tolu Leach MD LAB - CHEMISTRY [facility] [address] [address], [place] [phone] * PHOSPHORUS BLOOD (07/15/2022 4:01 AM [facility] LAW CL[employer]) Phosphorus 4.0 2.8 - 5.1 mg/dL 07/15/2022 4:46 AM [facility] Blood BLOOD SPECIMEN / Unknown Venipuncture / Unknown 07/15/2022 4:01 AM [employer] [employer] 07/15/2022 4:09 AM [employer] [employer] CLERK Randy Diaz MD LAB - CHEMISTRY [facility] [address] [address], [place] [phone] * MAGNESIUM BLOOD (07/15/2022 4:01 AM [facility] [employer]) Magnesium 1.8 1.6 - 2.6 mg/dL 07/15/2022 4:46 AM [facility] Blood BLOOD SPECIMEN / Unknown Venipuncture / Unknown 07/15/2022 4:01 AM [facility] [employer] 07/15/2022 4:09 AM [employer]OR[facility] LAW CLERK Randy Diaz MD LAB - CHEMISTRY [facility] [address] [address], [place] [phone] * (ABNORMAL) CBC W AUTO DIFFERENTIAL (07/15/2022 4:01 AM [facility]) WBC 6.7 3.5 - 10.5 10? 3 /uL 07/15/2022 4:13 AM [facility] RBC 2.76(L) 4.30 - 5.70 10? 6 /uL 07/15/2022 4:13 AM [facility] Hemoglobin 8.4(L) 12.0 - 17.6 g/dL 07/15/2022 4:13 AM [facility] Hematocrit 25.3(L) 35.2 - 51.7 % 07/15/2022 4:13 AM [facility] MCV 91.7 80.7 - 98.3 fL 07/15/2022 4:13 AM [facility] MCH 30.4 26.7 - 34.0 pg 07/15/2022 4:13 AM [facility] MCHC 33.2 30.8 - 35.9 g/dL 07/15/2022 4:13 AM [facility] RDW-SD 46.1 36.0 - 50.0 fL 07/15/2022 4:13 AM [facility] RDW-CV 14.0 11.2 - 14.8 % 07/15/2022 4:13 AM [facility] Platelet Count 164 150 - 400 10? 3 /uL 07/15/2022 4:13 AM [facility] MPV 12.4 9.4 - 12.9 fL 07/15/2022 4:13 AM [facility] nRBC Absolute 0.00 0 10? 3 /uL 07/15/2022 4:13 AM [facility] nRBC Auto 0.0 0 /100 WBC 07/15/2022 4:13 AM [facility] Neutrophils % 60.3 35.0 - 70.0 % 07/15/2022 4:13 AM [facility] Lymphocytes % 22.1 20.0 - 43.0 % 07/15/2022 4:13 AM [facility] Monocytes % 13.3(H) 5.0 - 13.0 % 07/15/2022 4:13 AM [facility] Eosinophils % 3.6 0.0 - 6.0 % 07/15/2022 4:13 AM [facility] Basophil % 0.3 0.0 - 2.0 % 07/15/2022 4:13 AM [facility] Neutrophils Absolute 4.04 1.60 - 7.00 10? 3 /uL 07/15/2022 4:13 AM [facility] Lymphocyte Absolute 1.48 1.10 - 3.90 10? 3 /uL 07/15/2022 4:13 AM [facility] Monocytes Absolute 0.89 0.26 - 1.07 10? 3 /uL 07/15/2022 4:13 AM [facility] Eosinophils Absolute 0.24 0.00 - 0.47 10? 3 /uL 07/15/2022 4:13 AM [facility] Basophils Absolute 0.02 0.00 - 0.08 10? 3 /uL 07/15/2022 4:13 AM [facility] Immature Granulocytes % 0.4 0.0 - 1.0 % 07/15/2022 4:13 AM [facility] Immature Granulocytes Absolute 0.03 07/15/2022 4:13 AM [facility] Blood BLOOD SPECIMEN / Unknown Venipuncture / Unknown 07/15/2022 4:01 AM [employer] [employer]ERK 07/15/2022 4:09 AM [facility] Artur Mcgraw MD LAB - HEMATOLOGY OR DERABLES Performing Organization Address City/State/[facility] Co de Phone Number [facility] [address] [place] [address], [facility] [phone] * (ABNORMAL) BASIC METABOLIC PANEL (CALCIUM TOTAL) (07/14/2022 4:11 AM [facility]) BUN 34(H) 7 - 26 mg/dL 07/14/2022 4:52 AM [facility] Creatinine 1.30(H) 0.71 - 1.16 mg/dL 07/14/2022 4:52 AM [facility] Sodium 139 136 - 145 mmol/L 07/14/2022 4:52 AM [facility] Potassium 3.5 3.5 - 4.5 mmol/L 07/14/2022 4:52 AM [facility] Chloride 104 98 - 107 mmol/L 07/14/2022 4:52 AM [facility] CO2 25 22 - 29 mmol/L 07/14/2022 4:52 AM [facility] Glucose 92 70 - 115 mg/dL 07/14/2022 4:52 AM [facility] Calcium 9.6 8.4 - 10.2 mg/dL 07/14/2022 4:52 AM [facility] Anion Gap 14 8 - 18 07/14/2022 4:52 AM [facility] BUN/Creatinine Ratio 26(H) 7 - 23 07/14/2022 4:52 AM [facility] Osmolality Calculated 295 270 - 300 mOsm/kg 07/14/2022 4:52 AM [facility] eGFR by CKD-EPI 63(L) >=90 mL/min/1.7 3 m2 07/14/2022 4:52 AM [facility] Blood BLOOD SPECIMEN / Unknown Venipuncture / Unknown 07/14/2022 4:11 AM [employer] [employer] 07/14/2022 4:25 AM [employer] [employer] Tolu Leach MD LAB - CHEMISTRY ORDByron MEDEROS [address] [address], [place] [phone] * PHOSPHORUS BLOOD (07/14/2022 4:11 AM [facility] [employer]) Phosphorus 3.0 2.8 - 5.1 mg/dL 07/14/2022 4:52 AM [facility] Blood BLOOD SPECIMEN / Unknown Venipuncture / Unknown 07/14/2022 4:11 AM [employer] [employer] 07/14/2022 4:25 AM [employer] [employer] CLERK Randy Diaz MD LAB - CHEMISTRY [facility] [address] [address], [place] [phone] * MAGNESIUM BLOOD (07/14/2022 4:11 AM ATTORNEY LAW CLERK) Pathologist [facility] Magnesium 1.8 1.6 - 2.6 mg/dL 07/14/2022 4:52 AM [facility] Blood BLOOD SPECIMEN / Unknown Venipuncture / Unknown 07/14/2022 4:11 AM [employer] [employer]ERK 07/14/2022 4:25 AM ATTORNEY LAW CLERK Randy Diaz MD LAB - CHEMISTRY [facility] MED[facility] Organization Address City/State/[facility] Co de Phone Number [facility] [address] [place] [address], [facility] [phone] * (ABNORMAL) CBC W AUTO DIFFERENTIAL (07/14/2022 4:11 AM [facility]) [facility] WBC 6.8 3.5 - 10.5 10? 3 /uL 07/14/2022 4:47 AM [facility] RBC 2.72(L) 4.30 - 5.70 10? 6 /uL 07/14/2022 4:47 AM [facility] Hemoglobin 8.2(L) 12.0 - 17.6 g/dL 07/14/2022 4:47 AM [facility] Hematocrit 24.8(L) 35.2 - 51.7 % 07/14/2022 4:47 AM [facility] MCV 91.2 80.7 - 98.3 fL 07/14/2022 4:47 AM [facility] MCH 30.1 26.7 - 34.0 pg 07/14/2022 4:47 AM [facility] MCHC 33.1 30.8 - 35.9 g/dL 07/14/2022 4:47 AM [facility] RDW-SD 45.3 36.0 - 50.0 fL 07/14/2022 4:47 AM [facility] RDW-CV 13.9 11.2 - 14.8 % 07/14/2022 4:47 AM [facility] Platelet Count 146(L) 150 - 400 10? 3 /uL 07/14/2022 4:47 AM [facility] MPV 12.9 9.4 - 12.9 fL 07/14/2022 4:47 AM [facility] nRBC Absolute 0.00 0 10? 3 /uL 07/14/2022 4:47 AM [facility] nRBC Auto 0.0 0 /100 WBC 07/14/2022 4:47 AM [facility] Neutrophils % 56.4 35.0 - 70.0 % 07/14/2022 4:47 AM [facility] Lymphocytes % 27.1 20.0 - 43.0 % 07/14/2022 4:47 AM [facility] Monocytes % 12.2 5.0 - 13.0 % 07/14/2022 4:47 AM [facility] Eosinophils % 3.4 0.0 - 6.0 % 07/14/2022 4:47 AM [facility] Basophil % 0.3 0.0 - 2.0 % 07/14/2022 4:47 AM [facility] Neutrophils Absolute 3.84 1.60 - 7.00 10? 3 /uL 07/14/2022 4:47 AM [facility] Lymphocyte Absolute 1.84 1.10 - 3.90 10? 3 /uL 07/14/2022 4:47 AM [facility] Monocytes Absolute 0.83 0.26 - 1.07 10? 3 /uL 07/14/2022 4:47 AM [facility] Eosinophils Absolute 0.23 0.00 - 0.47 10? 3 /uL 07/14/2022 4:47 AM [facility] Basophils Absolute 0.02 0.00 - 0.08 10? 3 /uL 07/14/2022 4:47 AM [facility] Immature Granulocytes % 0.6 0.0 - 1.0 % 07/14/2022 4:47 AM [facility] Immature Granulocytes Absolute 0.04 07/14/2022 4:47 AM [facility] Blood BLOOD SPECIMEN / Unknown Venipuncture / Unknown 07/14/2022 4:11 AM [facility] [employer] 07/14/2022 4:25 AM [employer] [employer] Artur Mcgraw MD LAB - HEMATOLOGY OR DERABLES Performing Organization Address City/State/[facility] Co de Phone Number [facility] [address] [place] [phone], [facility] [phone] * (ABNORMAL) BASIC METABOLIC PANEL (CALCIUM TOTAL) (07/13/2022 4:13 AM [facility] [employer]) BUN 36(H) 7 - 26 mg/dL 07/13/2022 5:16 AM [facility] Creatinine 1.36(H) 0.71 - 1.16 mg/dL 07/13/2022 5:16 AM [facility] Sodium 143 136 - 145 mmol/L 07/13/2022 5:16 AM [facility] Potassium 3.8 3.5 - 4.5 mmol/L 07/13/2022 5:16 AM [facility] Chloride 108(H) 98 - 107 mmol/L 07/13/2022 5:16 AM [facility] CO2 26 22 - 29 mmol/L 07/13/2022 5:16 AM [facility] Glucose 101 70 - 115 mg/dL 07/13/2022 5:16 AM [facility] Calcium 9.4 8.4 - 10.2 mg/dL 07/13/2022 5:16 AM [facility] Anion Gap 13 8 - 18 07/13/2022 5:16 AM [facility] BUN/Creatinine Ratio 26(H) 7 - 23 07/13/2022 5:16 AM [facility] Osmolality Calculated 304(H) 270 - 300 mOsm/kg 07/13/2022 5:16 AM [facility] eGFR by CKD-EPI 59(L) >=90 mL/min/1.7 3 m2 07/13/2022 5:16 AM [facility] Blood BLOOD SPECIMEN / Unknown Venipuncture / Unknown 07/13/2022 4:13 AM [employer] [employer] 07/13/2022 4:50 AM [facility] Tolu Leach MD LAB - CHEMISTRY [facility] [address] [place] [address], [facility] [phone] * (ABNORMAL) PHOSPHORUS BLOOD (07/13/2022 4:13 AM [facility] [employer] CL[employer]) Pathologist [facility] Phosphorus 2.7(L) 2.8 - 5.1 mg/dL 07/13/2022 5:16 AM [facility] Blood BLOOD SPECIMEN / Unknown Venipuncture / Unknown 07/13/2022 4:13 AM [employer] [employer] 07/13/2022 4:50 AM [employer] [employer] Randy Diaz MD LAB - CHEMISTRY [facility]ER[facility] [address] [address], [facility] [phone] * MAGNESIUM BLOOD (07/13/2022 4:13 AM ATT[employer] [employer] CL[employer]) Pathologist [facility] Magnesium 1.8 1.6 - 2.6 mg/dL 07/13/2022 5:16 AM [facility] Blood BLOOD SPECIMEN / Unknown Venipuncture / Unknown 07/13/2022 4:13 AM [facility] [employer] 07/13/2022 4:50 AM [facility] [employer] Randy Diaz MD LAB - CHEMISTRY [facility] [address] [address], [facility] [phone] * (ABNORMAL) CBC W AUTO DIFFERENTIAL (07/13/2022 4:13 AM [facility] [employer]) [facility] WBC 8.6 3.5 - 10.5 10? 3 /uL 07/13/2022 5:12 AM [facility] RBC 2.80(L) 4.30 - 5.70 10? 6 /uL 07/13/2022 5:12 AM [facility] Hemoglobin 8.9(L) 12.0 - 17.6 g/dL 07/13/2022 5:12 AM [facility] Hematocrit 25.9(L) 35.2 - 51.7 % 07/13/2022 5:12 AM [facility] MCV 92.5 80.7 - 98.3 fL 07/13/2022 5:12 AM [facility] MCH 31.8 26.7 - 34.0 pg 07/13/2022 5:12 AM [facility] MCHC 34.4 30.8 - 35.9 g/dL 07/13/2022 5:12 AM [facility] RDW-SD 46.3 36.0 - 50.0 fL 07/13/2022 5:12 AM [facility] RDW-CV 13.6 11.2 - 14.8 % 07/13/2022 5:12 AM [facility] Platelet Count 81(L) 150 - 400 10? 3 /uL 07/13/2022 5:12 AM [facility] MPV 12.2 9.4 - 12.9 fL 07/13/2022 5:12 AM [facility] nRBC Absolute 0.00 0 10? 3 /uL 07/13/2022 5:12 AM [facility] nRBC Auto 0.0 0 /100 WBC 07/13/2022 5:12 AM [facility] Neutrophils % 63.7 35.0 - 70.0 % 07/13/2022 5:12 AM [facility] Lymphocytes % 20.8 20.0 - 43.0 % 07/13/2022 5:12 AM [facility] Monocytes % 12.7 5.0 - 13.0 % 07/13/2022 5:12 AM [facility] Eosinophils % 1.9 0.0 - 6.0 % 07/13/2022 5:12 AM [facility] Basophil % 0.2 0.0 - 2.0 % 07/13/2022 5:12 AM [facility] Neutrophils Absolute 5.48 1.60 - 7.00 10? 3 /uL 07/13/2022 5:12 AM [facility] Lymphocyte Absolute 1.79 1.10 - 3.90 10? 3 /uL 07/13/2022 5:12 AM [facility] Monocytes Absolute 1.09(H) 0.26 - 1.07 10? 3 /uL 07/13/2022 5:12 AM [facility] Eosinophils Absolute 0.16 0.00 - 0.47 10? 3 /uL 07/13/2022 5:12 AM [facility] Basophils Absolute 0.02 0.00 - 0.08 10? 3 /uL 07/13/2022 5:12 AM [facility] Immature Granulocytes % 0.7 0.0 - 1.0 % 07/13/2022 5:12 AM [facility] Immature Granulocytes Absolute 0.06 07/13/2022 5:12 AM [facility] Blood BLOOD SPECIMEN / Unknown Venipuncture / Unknown 07/13/2022 4:13 AM [facility] [employer] 07/13/2022 4:50 AM [facility] [employer] Artur Mcgraw MD LAB - HEMATOLOGY OR DERABLES [facility] [address] [place] [address], [facility] [phone] * (ABNORMAL) BASIC METABOLIC PANEL (CALCIUM TOTAL) (07/12/2022 4:50 AM [facility]) BUN 42(H) 7 - 26 mg/dL 07/12/2022 7:22 AM [facility] Creatinine 1.58(H) 0.71 - 1.16 mg/dL 07/12/2022 7:22 AM [facility] Sodium 143 136 - 145 mmol/L 07/12/2022 7:22 AM [facility] Potassium 4.5 3.5 - 4.5 mmol/L 07/12/2022 7:22 AM [facility] Chloride 109(H) 98 - 107 mmol/L 07/12/2022 7:22 AM [facility] CO2 25 22 - 29 mmol/L 07/12/2022 7:22 AM [facility] Glucose 112 70 - 115 mg/dL 07/12/2022 7:22 AM [facility] Calcium 9.0 8.4 - 10.2 mg/dL 07/12/2022 7:22 AM [facility] Anion Gap 14 8 - 18 07/12/2022 7:22 AM [facility] BUN/Creatinine Ratio 27(H) 7 - 23 07/12/2022 7:22 AM [facility] Osmolality Calculated 307(H) 270 - 300 mOsm/kg 07/12/2022 7:22 AM ATTORNEY LAW CLERK [facility] eGFR by CKD-EPI 49(L) >=90 mL/min/1.7 3 m2 07/12/2022 7:22 AM ATTORNEY LAW CLERK [facility] Blood BLOOD SPECIMEN / Unknown Venipuncture / Unknown 07/12/2022 4:50 AM [employer] [employer] 07/12/2022 6:18 AM [employer] [employer] Tolu Leach MD LAB - CHEMISTRY MARSHAL MEDEROS [address] [address], [facility] [phone] * PHOSPHORUS BLOOD (07/12/2022 4:50 AM [facility] [employer]) Phosphorus 3.4 2.8 - 5.1 mg/dL 07/12/2022 7:22 AM ATTORNEY LAW CLERK [facility] Blood BLOOD SPECIMEN / Unknown Venipuncture / Unknown 07/12/2022 4:50 AM [facility] [employer] 07/12/2022 6:18 AM [employer] [employer] CL[employer] Randy Diaz MD LAB - CHEMISTRY MARSHAL [facility]EROS Performing Organization Address [facility]/ZIP Co de Phone Number [address] [address], [place] [phone] * MAGNESIUM BLOOD (07/12/2022 4:50 AM [facility] [employer]) Magnesium 1.9 1.6 - 2.6 mg/dL 07/12/2022 7:22 AM ATTORNEY LAW CLERK [facility] Blood BLOOD SPECIMEN / Unknown Venipuncture / Unknown 07/12/2022 4:50 AM [facility] [employer] 07/12/2022 6:18 AM [employer] [employer] CL[employer] Randy Diaz MD LAB - CHEMISTRY MARSHAL MEDEROS Performing Organization Address City/[facility]/ZIP Co de Phone Number [address] [address], [place] [phone] * (ABNORMAL) CBC W AUTO DIFFERENTIAL (07/12/2022 4:50 AM [facility] [employer]) WBC 6.6 3.5 - 10.5 10? 3 /uL 07/12/2022 6:26 AM [facility] RBC 2.99(L) 4.30 - 5.70 10? 6 /uL 07/12/2022 6:26 AM [facility] Hemoglobin 9.3(L) 12.0 - 17.6 g/dL 07/12/2022 6:26 AM [facility] Hematocrit 28.0(L) 35.2 - 51.7 % 07/12/2022 6:26 AM [facility] MCV 93.6 80.7 - 98.3 fL 07/12/2022 6:26 AM [facility] MCH 31.1 26.7 - 34.0 pg 07/12/2022 6:26 AM [facility] MCHC 33.2 30.8 - 35.9 g/dL 07/12/2022 6:26 AM [facility] RDW-SD 46.4 36.0 - 50.0 fL 07/12/2022 6:26 AM [facility] RDW-CV 13.7 11.2 - 14.8 % 07/12/2022 6:26 AM [facility] Platelet Count 152 150 - 400 10? 3 /uL 07/12/2022 6:26 AM [facility] MPV 12.8 9.4 - 12.9 fL 07/12/2022 6:26 AM [facility] nRBC Absolute 0.00 0 10? 3 /uL 07/12/2022 6:26 AM [facility] nRBC Auto 0.0 0 /100 WBC 07/12/2022 6:26 AM [facility] Neutrophils % 59.3 35.0 - 70.0 % 07/12/2022 6:26 AM [facility] Lymphocytes % 26.7 20.0 - 43.0 % 07/12/2022 6:26 AM [facility] Monocytes % 9.9 5.0 - 13.0 % 07/12/2022 6:26 AM [facility] Eosinophils % 3.0 0.0 - 6.0 % 07/12/2022 6:26 AM [facility] Basophil % 0.3 0.0 - 2.0 % 07/12/2022 6:26 AM [facility] Neutrophils Absolute 3.89 1.60 - 7.00 10? 3 /uL 07/12/2022 6:26 AM [facility] Lymphocyte Absolute 1.75 1.10 - 3.90 10? 3 /uL 07/12/2022 6:26 AM [facility] Monocytes Absolute 0.65 0.26 - 1.07 10? 3 /uL 07/12/2022 6:26 AM [facility] Eosinophils Absolute 0.20 0.00 - 0.47 10? 3 /uL 07/12/2022 6:26 AM [facility] Basophils Absolute 0.02 0.00 - 0.08 10? 3 /uL 07/12/2022 6:26 AM [facility] Immature Granulocytes % 0.8 0.0 - 1.0 % 07/12/2022 6:26 AM [facility] Immature Granulocytes Absolute 0.05 07/12/2022 6:26 AM [facility] Blood BLOOD SPECIMEN / Unknown Venipuncture / Unknown 07/12/2022 4:50 AM [facility] [employer] 07/12/2022 6:18 AM [facility] [employer] Artur Mcgraw MD LAB - HEMATOLOGY OR DERABLES [address] [address], [facility] [phone] * CK BLOOD (07/11/2022 12:40 AM [facility] [employer] CL[facility]) CK Total 49 30 - 200 U/L 07/11/2022 4:37 PM [facility] Blood BLOOD SPECIMEN / Unknown 07/11/2022 12:40 AM [facility] [employer] 07/11/2022 4:24 PM [facility] [employer] Tolu Leach MD LAB - CHEMISTRY MARSHAL MEDEROS [address] [address], [place] [phone] * (ABNORMAL) BASIC METABOLIC PANEL (CALCIUM TOTAL) (07/11/2022 12:40 AM [facility]) BUN 46(H) 7 - 26 mg/dL 07/11/2022 1:18 AM [facility] Creatinine 1.81(H) 0.71 - 1.16 mg/dL 07/11/2022 1:18 AM [facility] Sodium 142 136 - 145 mmol/L 07/11/2022 1:18 AM [facility] Potassium 5.3(H) 3.5 - 4.5 mmol/L 07/11/2022 1:18 AM [facility] Chloride 109(H) 98 - 107 mmol/L 07/11/2022 1:18 AM [facility] CO2 26 22 - 29 mmol/L 07/11/2022 1:18 AM [facility] Glucose 101 70 - 115 mg/dL 07/11/2022 1:18 AM [facility] Calcium 9.8 8.4 - 10.2 mg/dL 07/11/2022 1:18 AM [facility] Anion Gap 12 8 - 18 07/11/2022 1:18 AM [facility] BUN/Creatinine Ratio 25(H) 7 - 23 07/11/2022 1:18 AM [facility] Osmolality Calculated 306(H) 270 - 300 mOsm/kg 07/11/2022 1:18 AM [facility] eGFR by CKD-EPI 42(L) >=90 mL/min/1.7 3 m2 07/11/2022 1:18 AM [facility] Blood BLOOD SPECIMEN / Unknown Venipuncture / Unknown 07/11/2022 12:40 AM [facility] [employer] 07/11/2022 12:53 AM [facility] Tolu Leach MD LAB - CHEMISTRY MARSHAL MEDEROS [facility] Organization Address City/State/ZIP Co de Phone Number [facility] [address] [place] [address], [facility] [phone] * PHOSPHORUS BLOOD (07/11/2022 12:40 AM [facility]) Phosphorus 3.9 2.8 - 5.1 mg/dL 07/11/2022 1:18 AM [facility] Blood BLOOD SPECIMEN / Unknown Venipuncture / Unknown 07/11/2022 12:40 AM [facility] [employer] 07/11/2022 12:53 AM [facility] [employer] Randy Diaz MD LAB - CHEMISTRY MARSHAL MEDEROS [address] [address], [facility] [phone] * MAGNESIUM BLOOD (07/11/2022 12:40 AM [facility] [employer]) Magnesium 1.9 1.6 - 2.6 mg/dL 07/11/2022 1:18 AM [facility] Blood BLOOD SPECIMEN / Unknown Venipuncture / Unknown 07/11/2022 12:40 AM [facility] [employer] 07/11/2022 12:53 AM [facility] [employer] Randy Diaz MD LAB - CHEMISTRY MARSHAL MEDEROS Performing Organization Address City/[facility]/ZIP Co de Phone Number [address] [address], [facility] [phone] * (ABNORMAL) CBC W AUTO DIFFERENTIAL (07/11/2022 12:40 AM [employer]) WBC 5.0 3.5 - 10.5 10? 3 /uL 07/11/2022 1:32 AM [facility] RBC 3.31(L) 4.30 - 5.70 10? 6 /uL 07/11/2022 1:32 AM [facility] Hemoglobin 10.1(L) 12.0 - 17.6 g/dL 07/11/2022 1:32 AM [facility] Hematocrit 31.0(L) 35.2 - 51.7 % 07/11/2022 1:32 AM [facility] MCV 93.7 80.7 - 98.3 fL 07/11/2022 1:32 AM [facility] MCH 30.5 26.7 - 34.0 pg 07/11/2022 1:32 AM [facility] MCHC 32.6 30.8 - 35.9 g/dL 07/11/2022 1:32 AM [facility] RDW-SD 46.2 36.0 - 50.0 fL 07/11/2022 1:32 AM [facility] RDW-CV 13.5 11.2 - 14.8 % 07/11/2022 1:32 AM [facility] Platelet Count 153 150 - 400 10? 3 /uL 07/11/2022 1:32 AM [facility] MPV 12.3 9.4 - 12.9 fL 07/11/2022 1:32 AM [facility] nRBC Absolute 0.00 0 10? 3 /uL 07/11/2022 1:32 AM [facility] nRBC Auto 0.0 0 /100 WBC 07/11/2022 1:32 AM [facility] Neutrophils % 46.5 35.0 - 70.0 % 07/11/2022 1:32 AM [facility] Lymphocytes % 36.5 20.0 - 43.0 % 07/11/2022 1:32 AM [facility] Monocytes % 11.2 5.0 - 13.0 % 07/11/2022 1:32 AM [facility] Eosinophils % 5.0 0.0 - 6.0 % 07/11/2022 1:32 AM [facility] Basophil % 0.4 0.0 - 2.0 % 07/11/2022 1:32 AM [facility] Neutrophils Absolute 2.34 1.60 - 7.00 10? 3 /uL 07/11/2022 1:32 AM [facility] Lymphocyte Absolute 1.83 1.10 - 3.90 10? 3 /uL 07/11/2022 1:32 AM [facility] Monocytes Absolute 0.56 0.26 - 1.07 10? 3 /uL 07/11/2022 1:32 AM [facility] Eosinophils Absolute 0.25 0.00 - 0.47 10? 3 /uL 07/11/2022 1:32 AM [facility] Basophils Absolute 0.02 0.00 - 0.08 10? 3 /uL 07/11/2022 1:32 AM [facility] Immature Granulocytes % 0.4 0.0 - 1.0 % 07/11/2022 1:32 AM [facility] Immature Granulocytes Absolute 0.02 07/11/2022 1:32 AM [facility] Blood BLOOD SPECIMEN / Unknown Venipuncture / Unknown 07/11/2022 12:40 AM [employer] 07/11/2022 12:53 AM [facility] Artur Mcgraw MD LAB - HEMATOLOGY OR DERABLES Performing Organization Address City/State/[facility] Co de Phone Number [facility] [address] [place] [address], [facility] [phone] * (ABNORMAL) BASIC METABOLIC PANEL (CALCIUM TOTAL) (07/10/2022 12:05 AM [facility]) BUN 44(H) 7 - 26 mg/dL 07/10/2022 12:52 AM [facility] Creatinine 1.96(H) 0.71 - 1.16 mg/dL 07/10/2022 12:52 AM [facility] Sodium 141 136 - 145 mmol/L 07/10/2022 12:52 AM [facility] Potassium 5.1(H) 3.5 - 4.5 mmol/L 07/10/2022 12:52 AM [facility] Chloride 111(H) 98 - 107 mmol/L 07/10/2022 12:52 AM [facility] CO2 23 22 - 29 mmol/L 07/10/2022 12:52 AM [facility] Glucose 101 70 - 115 mg/dL 07/10/2022 12:52 AM [facility] Calcium 9.1 8.4 - 10.2 mg/dL 07/10/2022 12:52 AM [facility] Anion Gap 12 8 - 18 07/10/2022 12:52 AM [facility] BUN/Creatinine Ratio 22 7 - 23 07/10/2022 12:52 AM [facility] Osmolality Calculated 303(H) 270 - 300 mOsm/kg 07/10/2022 12:52 AM [facility] eGFR by CKD-EPI 38(L) >=90 mL/min/1.7 3 m2 07/10/2022 12:52 AM [facility] Blood BLOOD SPECIMEN / Unknown Venipuncture / Unknown 07/10/2022 12:05 AM [employer] 07/10/2022 12:24 AM [employer] Tolu Leach MD LAB - CHEMISTRY [facility] [address] [place] [address], [place] [phone] * PHOSPHORUS BLOOD (07/10/2022 12:05 AM [employer]) Phosphorus 3.6 2.8 - 5.1 mg/dL 07/10/2022 12:52 AM [employer] [facility] Blood BLOOD SPECIMEN / Unknown Venipuncture / Unknown 07/10/2022 12:05 AM [employer] 07/10/2022 12:24 AM [employer] Randy Diaz MD LAB - CHEMISTRY [facility] Performing Organization Address [facility]/ZIP Co de Phone Number [address] [address], [place] [phone] * MAGNESIUM BLOOD (07/10/2022 12:05 AM [employer]) Magnesium 1.8 1.6 - 2.6 mg/dL 07/10/2022 12:52 AM [employer] [facility] Blood BLOOD SPECIMEN / Unknown Venipuncture / Unknown 07/10/2022 12:05 AM [employer] 07/10/2022 12:24 AM [employer] Randy Diaz MD LAB - CHEMISTRY [facility] [address] [address], [place] [phone] * (ABNORMAL) CBC W AUTO DIFFERENTIAL (07/10/2022 12:05 AM [employer]) WBC 5.2 3.5 - 10.5 10? 3 /uL 07/10/2022 12:33 AM [employer] [facility] RBC 2.80(L) 4.30 - 5.70 10? 6 /uL 07/10/2022 12:33 AM [facility] Hemoglobin 8.6(L) 12.0 - 17.6 g/dL 07/10/2022 12:33 AM [facility] Hematocrit 26.1(L) 35.2 - 51.7 % 07/10/2022 12:33 AM [facility] MCV 93.2 80.7 - 98.3 fL 07/10/2022 12:33 AM [facility] MCH 30.7 26.7 - 34.0 pg 07/10/2022 12:33 AM [facility] MCHC 33.0 30.8 - 35.9 g/dL 07/10/2022 12:33 AM [facility] RDW-SD 46.1 36.0 - 50.0 fL 07/10/2022 12:33 AM [facility] RDW-CV 13.5 11.2 - 14.8 % 07/10/2022 12:33 AM [facility] Platelet Count 134(L) 150 - 400 10? 3 /uL 07/10/2022 12:33 AM [facility] MPV 12.3 9.4 - 12.9 fL 07/10/2022 12:33 AM [facility] nRBC Absolute 0.00 0 10? 3 /uL 07/10/2022 12:33 AM [facility] nRBC Auto 0.0 0 /100 WBC 07/10/2022 12:33 AM [facility] Neutrophils % 47.6 35.0 - 70.0 % 07/10/2022 12:33 AM [facility] Lymphocytes % 36.1 20.0 - 43.0 % 07/10/2022 12:33 AM [facility] Monocytes % 10.5 5.0 - 13.0 % 07/10/2022 12:33 AM [facility] Eosinophils % 5.0 0.0 - 6.0 % 07/10/2022 12:33 AM [facility] Basophil % 0.2 0.0 - 2.0 % 07/10/2022 12:33 AM [facility] Neutrophils Absolute 2.45 1.60 - 7.00 10? 3 /uL 07/10/2022 12:33 AM ATTORNEY LAW CLERK [facility] Lymphocyte Absolute 1.86 1.10 - 3.90 10? 3 /uL 07/10/2022 12:33 AM [facility] Monocytes Absolute 0.54 0.26 - 1.07 10? 3 /uL 07/10/2022 12:33 AM [facility] Eosinophils Absolute 0.26 0.00 - 0.47 10? 3 /uL 07/10/2022 12:33 AM [facility] Basophils Absolute 0.01 0.00 - 0.08 10? 3 /uL 07/10/2022 12:33 AM [facility] Immature Granulocytes % 0.6 0.0 - 1.0 % 07/10/2022 12:33 AM [facility] Immature Granulocytes Absolute 0.03 07/10/2022 12:33 AM [facility] Blood BLOOD SPECIMEN / Unknown Venipuncture / Unknown 07/10/2022 12:05 AM [facility] [employer] 07/10/2022 12:24 AM [facility] Artur Mcgraw MD LAB - HEMATOLOGY OR DERABLES [facility] [address] [place] [address], [facility] [phone] * (ABNORMAL) BASIC METABOLIC PANEL (CALCIUM TOTAL) (07/09/2022 3:03 AM [facility]) BUN 39(H) 7 - 26 mg/dL 07/09/2022 3:48 AM [facility] Creatinine 2.18(H) 0.71 - 1.16 mg/dL 07/09/2022 3:48 AM [facility] Sodium 143 136 - 145 mmol/L 07/09/2022 3:48 AM [facility] Potassium 4.7(H) 3.5 - 4.5 mmol/L 07/09/2022 3:48 AM [facility] Chloride 114(H) 98 - 107 mmol/L 07/09/2022 3:48 AM [facility] CO2 22 22 - 29 mmol/L 07/09/2022 3:48 AM [facility] Glucose 109 70 - 115 mg/dL 07/09/2022 3:48 AM [facility] Calcium 9.0 8.4 - 10.2 mg/dL 07/09/2022 3:48 AM [facility] Anion Gap 12 8 - 18 07/09/2022 3:48 AM [facility] BUN/Creatinine Ratio 18 7 - 23 07/09/2022 3:48 AM [facility] Osmolality Calculated 306(H) 270 - 300 mOsm/kg 07/09/2022 3:48 AM [facility] eGFR by CKD-EPI 34(L) >=90 mL/min/1.7 3 m2 07/09/2022 3:48 AM [facility] Blood BLOOD SPECIMEN / Unknown Venipuncture / Unknown 07/09/2022 3:03 AM [facility] [employer] 07/09/2022 3:15 AM [employer] [employer] Ramya Witt MD LAB - CHEMISTRY ORDERABLES Performing Organization Address City/[facility]/ZIP Co de Phone Number [address] [address], [facility] [phone] * PHOSPHORUS BLOOD (07/09/2022 3:03 AM [facility] LAW [employer]) Phosphorus 3.1 2.8 - 5.1 mg/dL 07/09/2022 3:48 AM [facility] Blood BLOOD SPECIMEN / Unknown Venipuncture / Unknown 07/09/2022 3:03 AM [employer] [employer] 07/09/2022 3:15 AM [employer]OR[facility] LAW CLERK Randy Diaz MD LAB - CHEMISTRY [facility] [address] [address], [place] [phone] * MAGNESIUM BLOOD (07/09/2022 3:03 AM [facility] LAW [employer]) Magnesium 2.1 1.6 - 2.6 mg/dL 07/09/2022 3:48 AM [facility] Blood BLOOD SPECIMEN / Unknown Venipuncture / Unknown 07/09/2022 3:03 AM [employer] [employer] CLERK 07/09/2022 3:15 AM [facility] Randy Diaz MD LAB - CHEMISTRY MARSHAL Diana Organization Address City/State/ZIP Co de Phone Number [facility] [address] [place] [address], [facility] [phone] * (ABNORMAL) CBC W AUTO DIFFERENTIAL (07/09/2022 3:03 AM [facility] LAW [employer]) WBC 4.9 3.5 - 10.5 10? 3 /uL 07/09/2022 3:25 AM [facility] RBC 2.60(L) 4.30 - 5.70 10? 6 /uL 07/09/2022 3:25 AM [facility] Hemoglobin 8.0(L) 12.0 - 17.6 g/dL 07/09/2022 3:25 AM [facility] Hematocrit 24.4(L) 35.2 - 51.7 % 07/09/2022 3:25 AM [facility] MCV 93.8 80.7 - 98.3 fL 07/09/2022 3:25 AM [facility] MCH 30.8 26.7 - 34.0 pg 07/09/2022 3:25 AM [facility] MCHC 32.8 30.8 - 35.9 g/dL 07/09/2022 3:25 AM [facility] RDW-SD 46.5 36.0 - 50.0 fL 07/09/2022 3:25 AM [facility] RDW-CV 13.7 11.2 - 14.8 % 07/09/2022 3:25 AM [facility] Platelet Count 116(L) 150 - 400 10? 3 /uL 07/09/2022 3:25 AM [facility] MPV 12.1 9.4 - 12.9 fL 07/09/2022 3:25 AM [facility] nRBC Absolute 0.00 0 10? 3 /uL 07/09/2022 3:25 AM [facility] nRBC Auto 0.0 0 /100 WBC 07/09/2022 3:25 AM [facility] Neutrophils % 52.4 35.0 - 70.0 % 07/09/2022 3:25 AM [facility] Lymphocytes % 31.4 20.0 - 43.0 % 07/09/2022 3:25 AM [facility] Monocytes % 10.9 5.0 - 13.0 % 07/09/2022 3:25 AM [facility] Eosinophils % 4.5 0.0 - 6.0 % 07/09/2022 3:25 AM [facility] Basophil % 0.2 0.0 - 2.0 % 07/09/2022 3:25 AM [facility] Neutrophils Absolute 2.55 1.60 - 7.00 10? 3 /uL 07/09/2022 3:25 AM [facility] Lymphocyte Absolute 1.53 1.10 - 3.90 10? 3 /uL 07/09/2022 3:25 AM [facility] Monocytes Absolute 0.53 0.26 - 1.07 10? 3 /uL 07/09/2022 3:25 AM [facility] Eosinophils Absolute 0.22 0.00 - 0.47 10? 3 /uL 07/09/2022 3:25 AM [facility] Basophils Absolute 0.01 0.00 - 0.08 10? 3 /uL 07/09/2022 3:25 AM [facility] Immature Granulocytes % 0.6 0.0 - 1.0 % 07/09/2022 3:25 AM [facility] Immature Granulocytes Absolute 0.03 07/09/2022 3:25 AM [facility] Blood BLOOD SPECIMEN / Unknown Venipuncture / Unknown 07/09/2022 3:03 AM [employer] [employer] 07/09/2022 3:15 AM [facility] Artur Mcgraw MD LAB - HEMATOLOGY OR DERABLES [facility] [address] [place] [address], [facility] [phone] * VALPROIC ACID LEVEL (07/09/2022 3:03 AM [facility]) Valproic Acid Total 77 50 - 100 ug/mL 07/09/2022 3:31 AM [facility] Blood BLOOD SPECIMEN / Unknown Venipuncture / Unknown 07/09/2022 3:03 AM [employer] [employer] 07/09/2022 3:08 AM [employer]OR[facility] [employer] CLERK Tolu Leach MD LAB - CHEMISTRY [facility] Organization Address City/State/ZIP Co de Phone Number [facility] [address] [place] [address], [facility] [phone] * (ABNORMAL) BASIC METABOLIC PANEL (CALCIUM TOTAL) (07/08/2022 8:46 PM [facility]OR[facility] LAW CL[employer]) BUN 40(H) 7 - 26 mg/dL 07/08/2022 9:30 PM [facility] Creatinine 2.30(H) 0.71 - 1.16 mg/dL 07/08/2022 9:30 PM [facility] Sodium 145 136 - 145 mmol/L 07/08/2022 9:30 PM [facility] Potassium 4.4 3.5 - 4.5 mmol/L 07/08/2022 9:30 PM [facility] Chloride 115(H) 98 - 107 mmol/L 07/08/2022 9:30 PM [facility] CO2 23 22 - 29 mmol/L 07/08/2022 9:30 PM [facility] Glucose 105 70 - 115 mg/dL 07/08/2022 9:30 PM [facility] Calcium 8.8 8.4 - 10.2 mg/dL 07/08/2022 9:30 PM [facility] Anion Gap 11 8 - 18 07/08/2022 9:30 PM [facility] BUN/Creatinine Ratio 17 7 - 23 07/08/2022 9:30 PM [facility] Osmolality Calculated 310(H) 270 - 300 mOsm/kg 07/08/2022 9:30 PM [facility] eGFR by CKD-EPI 32(L) >=90 mL/min/1.7 3 m2 07/08/2022 9:30 PM [facility] Blood BLOOD SPECIMEN / Unknown Venipuncture / Unknown 07/08/2022 8:46 PM [employer]NEY [employer] CLERK 07/08/2022 9:00 PM [employer]OR[facility] [employer] CLERK Ramya Witt MD LAB - CHEMISTRY ORDERABLES [address] [address] [phone] * (ABNORMAL) BASIC METABOLIC PANEL (CALCIUM TOTAL) (07/08/2022 12:22 PM [facility]OR[facility] LAW CLERK) BUN 40(H) 7 - 26 mg/dL 07/08/2022 12:58 PM [facility] Creatinine 2.45(H) 0.71 - 1.16 mg/dL 07/08/2022 12:58 PM [facility] Sodium 145 136 - 145 mmol/L 07/08/2022 12:58 PM [facility] Potassium 4.6(H) 3.5 - 4.5 mmol/L 07/08/2022 12:58 PM [facility] Chloride 113(H) 98 - 107 mmol/L 07/08/2022 12:58 PM [facility] CO2 22 22 - 29 mmol/L 07/08/2022 12:58 PM [facility] Glucose 109 70 - 115 mg/dL 07/08/2022 12:58 PM [facility] Calcium 9.2 8.4 - 10.2 mg/dL 07/08/2022 12:58 PM [facility] Anion Gap 15 8 - 18 07/08/2022 12:58 PM [facility] BUN/Creatinine Ratio 16 7 - 23 07/08/2022 12:58 PM [facility] Osmolality Calculated 310(H) 270 - 300 mOsm/kg 07/08/2022 12:58 PM [facility] eGFR by CKD-EPI 29(L) >=90 mL/min/1.7 3 m2 07/08/2022 12:58 PM [facility] Blood BLOOD SPECIMEN / Unknown Venipuncture / Unknown 07/08/2022 12:22 PM [employer] LAW CLERK 07/08/2022 12:30 PM [facility] Ramya Witt MD LAB - CHEMISTRY ORDERABLES [facility] [address] [place] [address], [facility] [phone] * (ABNORMAL) BASIC METABOLIC PANEL (CALCIUM TOTAL) (07/08/2022 3:34 AM [facility]) BUN 39(H) 7 - 26 mg/dL 07/08/2022 4:07 AM [facility] Creatinine 2.64(H) 0.71 - 1.16 mg/dL 07/08/2022 4:07 AM [facility] Sodium 146(H) 136 - 145 mmol/L 07/08/2022 4:07 AM [facility] Potassium 4.4 3.5 - 4.5 mmol/L 07/08/2022 4:07 AM [facility] Chloride 114(H) 98 - 107 mmol/L 07/08/2022 4:07 AM [facility] CO2 20(L) 22 - 29 mmol/L 07/08/2022 4:07 AM [facility] Glucose 99 70 - 115 mg/dL 07/08/2022 4:07 AM [facility] Calcium 8.8 8.4 - 10.2 mg/dL 07/08/2022 4:07 AM [facility] Anion Gap 16 8 - 18 07/08/2022 4:07 AM [facility] BUN/Creatinine Ratio 15 7 - 23 07/08/2022 4:07 AM [facility] Osmolality Calculated 311(H) 270 - 300 mOsm/kg 07/08/2022 4:07 AM [facility] eGFR by CKD-EPI 27(L) >=90 mL/min/1.7 3 m2 07/08/2022 4:07 AM [facility] Blood BLOOD SPECIMEN / Unknown Venipuncture / Unknown 07/08/2022 3:34 AM [employer] [employer] 07/08/2022 3:37 AM [facility] Ramya Witt MD LAB - CHEMISTRY ORDERABLES [facility] [address] [place] [address], [facility] [phone] * (ABNORMAL) PHOSPHORUS BLOOD (07/08/2022 3:34 AM ATTORNEY LAW CLERK) Pathologist [facility] Phosphorus 2.4(L) 2.8 - 5.1 mg/dL 07/08/2022 4:07 AM [facility] Blood BLOOD SPECIMEN / Unknown Venipuncture / Unknown 07/08/2022 3:34 AM [employer] [employer] 07/08/2022 3:37 AM [employer] [employer] Randy Diaz MD LAB - CHEMISTRY [facility] MEDEROS [address] [address], [facility] [phone] * MAGNESIUM BLOOD (07/08/2022 3:34 AM ATTORNEY LAW CLERK) [facility] Magnesium 2.2 1.6 - 2.6 mg/dL 07/08/2022 4:07 AM [facility] Blood BLOOD SPECIMEN / Unknown Venipuncture / Unknown 07/08/2022 3:34 AM [employer] [employer] CLERK 07/08/2022 3:37 AM [employer] [employer] CLERK Randy Diaz MD LAB - CHEMISTRY MARSHAL MEDEROS Performing Organization Address City/[facility]/ZIP Co de Phone Number [address] [address], [facility] [phone] * (ABNORMAL) CBC W AUTO DIFFERENTIAL (07/08/2022 3:34 AM ATTORNEY LAW CLERK) [facility] WBC 6.0 3.5 - 10.5 10? 3 /uL 07/08/2022 4:04 AM [facility] RBC 2.85(L) 4.30 - 5.70 10? 6 /uL 07/08/2022 4:04 AM [facility] Hemoglobin 8.8(L) 12.0 - 17.6 g/dL 07/08/2022 4:04 AM [facility] Hematocrit 26.7(L) 35.2 - 51.7 % 07/08/2022 4:04 AM [facility] MCV 93.7 80.7 - 98.3 fL 07/08/2022 4:04 AM [facility] MCH 30.9 26.7 - 34.0 pg 07/08/2022 4:04 AM [facility] MCHC 33.0 30.8 - 35.9 g/dL 07/08/2022 4:04 AM [facility] RDW-SD 47.1 36.0 - 50.0 fL 07/08/2022 4:04 AM [facility] RDW-CV 13.9 11.2 - 14.8 % 07/08/2022 4:04 AM [facility] Platelet Count 144(L) 150 - 400 10? 3 /uL 07/08/2022 4:04 AM [facility] MPV 12.2 9.4 - 12.9 fL 07/08/2022 4:04 AM [facility] nRBC Absolute 0.00 0 10? 3 /uL 07/08/2022 4:04 AM [facility] nRBC Auto 0.0 0 /100 WBC 07/08/2022 4:04 AM [facility] Neutrophils % 55.5 35.0 - 70.0 % 07/08/2022 4:04 AM [facility] Lymphocytes % 25.6 20.0 - 43.0 % 07/08/2022 4:04 AM [facility] Monocytes % 11.8 5.0 - 13.0 % 07/08/2022 4:04 AM [facility] Eosinophils % 6.2(H) 0.0 - 6.0 % 07/08/2022 4:04 AM [facility] Basophil % 0.2 0.0 - 2.0 % 07/08/2022 4:04 AM [facility] Neutrophils Absolute 3.34 1.60 - 7.00 10? 3 /uL 07/08/2022 4:04 AM [facility] Lymphocyte Absolute 1.54 1.10 - 3.90 10? 3 /uL 07/08/2022 4:04 AM [facility] Monocytes Absolute 0.71 0.26 - 1.07 10? 3 /uL 07/08/2022 4:04 AM [facility] Eosinophils Absolute 0.37 0.00 - 0.47 10? 3 /uL 07/08/2022 4:04 AM [facility] Basophils Absolute 0.01 0.00 - 0.08 10? 3 /uL 07/08/2022 4:04 AM [facility] Immature Granulocytes % 0.7 0.0 - 1.0 % 07/08/2022 4:04 AM [facility] Immature Granulocytes Absolute 0.04 07/08/2022 4:04 AM [facility] Blood BLOOD SPECIMEN / Unknown Venipuncture / Unknown 07/08/2022 3:34 AM [facility] [employer] 07/08/2022 3:37 AM [employer] [employer] Artur Mcgraw MD LAB - HEMATOLOGY OR DERABLES [address] [address], [facility] [phone] * (ABNORMAL) BASIC METABOLIC PANEL (CALCIUM TOTAL) (07/07/2022 7:57 PM ATTORNEY LAW CLERK) BUN 39(H) 7 - 26 mg/dL 07/07/2022 8:27 PM [facility] Creatinine 2.75(H) 0.71 - 1.16 mg/dL 07/07/2022 8:27 PM [facility] Sodium 145 136 - 145 mmol/L 07/07/2022 8:27 PM [facility] Potassium 4.4 3.5 - 4.5 mmol/L 07/07/2022 8:27 PM [facility] Chloride 115(H) 98 - 107 mmol/L 07/07/2022 8:27 PM [facility] CO2 20(L) 22 - 29 mmol/L 07/07/2022 8:27 PM [facility] Glucose 106 70 - 115 mg/dL 07/07/2022 8:27 PM [facility] Calcium 8.9 8.4 - 10.2 mg/dL 07/07/2022 8:27 PM [facility] Anion Gap 14 8 - 18 07/07/2022 8:27 PM [facility] BUN/Creatinine Ratio 14 7 - 23 07/07/2022 8:27 PM [facility] Osmolality Calculated 310(H) 270 - 300 mOsm/kg 07/07/2022 8:27 PM [facility] eGFR by CKD-EPI 25(L) >=90 mL/min/1.7 3 m2 07/07/2022 8:27 PM [facility] Blood BLOOD SPECIMEN / Unknown Venipuncture / Unknown 07/07/2022 7:57 PM [employer] [employer] 07/07/2022 8:02 PM [employer] [employer] Ramya Witt MD LAB - CHEMISTRY ORDERABLES [facility] [address] [place] [address], [facility] [phone] * (ABNORMAL) BASIC METABOLIC PANEL (CALCIUM TOTAL) (07/07/2022 12:05 PM [facility]) BUN 38(H) 7 - 26 mg/dL 07/07/2022 12:41 PM [facility] Creatinine 2.85(H) 0.71 - 1.16 mg/dL 07/07/2022 12:41 PM [facility] Sodium 141 136 - 145 mmol/L 07/07/2022 12:41 PM [facility] Potassium 4.6(H) 3.5 - 4.5 mmol/L 07/07/2022 12:41 PM [facility] Chloride 113(H) 98 - 107 mmol/L 07/07/2022 12:41 PM [facility] CO2 23 22 - 29 mmol/L 07/07/2022 12:41 PM [facility] Glucose 117(H) 70 - 115 mg/dL 07/07/2022 12:41 PM [facility] Calcium 8.8 8.4 - 10.2 mg/dL 07/07/2022 12:41 PM [facility] Anion Gap 10 8 - 18 07/07/2022 12:41 PM [facility] BUN/Creatinine Ratio 13 7 - 23 07/07/2022 12:41 PM [facility] Osmolality Calculated 302(H) 270 - 300 mOsm/kg 07/07/2022 12:41 PM [facility] eGFR by CKD-EPI 24(L) >=90 mL/min/1.7 3 m2 07/07/2022 12:41 PM ATTORNEY LAW CLERK [facility] Blood BLOOD SPECIMEN / Unknown Venipuncture / Unknown 07/07/2022 12:05 PM [employer] [employer] CLERK 07/07/2022 12:11 PM [employer] [employer] Ramya Witt MD LAB - CHEMISTRY ORDERABLES [facility] [address] [place] [address], [facility] [phone] * CARDIAC EKG ORDER (07/07/2022 10:38 AM ATTORNEY LAW CLERK) Narrative 07/07/2022 10:38 AM ATTORNEY LAW CLERK Ordered by an unspecified provider. Scanned Document CARDIAC SERVICES ORD ERABLES * XR CHEST 1VW PORTABLE (07/07/2022 8:37 AM ATTORNEY LAW CLERK) Anatomical Region Laterality Modality Chest Radiographic Cynthia ging 07/07/2022 10:0 2 AM [employer] LAW CLERK Narrative 07/07/2022 10:35 AM [employer]NEY LAW CLERK EXAMINATION: XR CHEST 1VW PORTABLE HISTORY: R56.9: [...] is intact. > Dictated by Arthur Hawk (Hall Worker) IEron have personally reviewed and interpreted this [...] is intact. > Dictated by Arthur Hawk (Hall Worker) Eron Thomason have personally reviewed and interpreted this examination/study. > Interpreting Provider: Eron Payton on 07/07/2022 10:35 AM Tolu Leach MD DIAGNOSTIC IMAGING O RDERABLES * (ABNORMAL) BASIC METABOLIC PANEL (CALCIUM TOTAL) (07/07/2022 3:45 AM [facility] LAW CL[facility]) BUN 39(H) 7 - 26 mg/dL 07/07/2022 5:05 AM [facility] Creatinine 2.85(H) 0.71 - 1.16 mg/dL 07/07/2022 5:05 AM [facility] Sodium 144 136 - 145 mmol/L 07/07/2022 5:05 AM [facility] Potassium 4.5 3.5 - 4.5 mmol/L 07/07/2022 5:05 AM [facility] Chloride 114(H) 98 - 107 mmol/L 07/07/2022 5:05 AM [facility] CO2 22 22 - 29 mmol/L 07/07/2022 5:05 AM [facility] Glucose 118(H) 70 - 115 mg/dL 07/07/2022 5:05 AM [facility] Calcium 8.6 8.4 - 10.2 mg/dL 07/07/2022 5:05 AM [facility] Anion Gap 13 8 - 18 07/07/2022 5:05 AM [facility] BUN/Creatinine Ratio 14 7 - 23 07/07/2022 5:05 AM [facility] Osmolality Calculated 308(H) 270 - 300 mOsm/kg 07/07/2022 5:05 AM [facility] eGFR by CKD-EPI 24(L) >=90 mL/min/1.7 3 m2 07/07/2022 5:05 AM [facility] Blood BLOOD SPECIMEN / Unknown Venipuncture / Unknown 07/07/2022 3:45 AM [facility] LAW CLERK 07/07/2022 3:54 AM [employer] LAW CLERK Ramya Witt MD LAB - CHEMISTRY ORDERABLES Performing Organization Address City/[facility]/ZIP Co de Phone Number [address] [address], [place] [phone] * PHOSPHORUS BLOOD (07/07/2022 3:45 AM ATTORNEY LAW CLERK) Phosphorus 2.8 2.8 - 5.1 mg/dL 07/07/2022 4:25 AM ATTORNEY LAW CLERK [facility] Blood BLOOD SPECIMEN / Unknown Venipuncture / Unknown 07/07/2022 3:45 AM [employer] LAW CLERK 07/07/2022 3:54 AM ATTORNEY LAW CLERK Randy Diaz MD LAB - CHEMISTRY MARSHAL MEDEROS Performing Organization Address [facility] Co de Phone Number [address] [address], [place] [phone] * MAGNESIUM BLOOD (07/07/2022 3:45 AM ATTORNEY LAW CLERK) Magnesium 2.3 1.6 - 2.6 mg/dL 07/07/2022 4:25 AM ATTORNEY LAW CLERK [facility] Blood BLOOD SPECIMEN / Unknown Venipuncture / Unknown 07/07/2022 3:45 AM [facility] LAW CLERK 07/07/2022 3:54 AM [employer] LAW CLERK Randy Diaz MD LAB - CHEMISTRY MARSHAL MEDEROS [address] [address], [place] [phone] * (ABNORMAL) CBC W AUTO DIFFERENTIAL (07/07/2022 3:45 AM ATT[facility] LAW CLERK) WBC 5.0 3.5 - 10.5 10? 3 /uL 07/07/2022 4:01 AM ATTORNEY LAW CLERK [facility] RBC 3.12(L) 4.30 - 5.70 10? 6 /uL 07/07/2022 4:01 AM [facility] Hemoglobin 9.5(L) 12.0 - 17.6 g/dL 07/07/2022 4:01 AM [facility] Hematocrit 28.9(L) 35.2 - 51.7 % 07/07/2022 4:01 AM [facility] MCV 92.6 80.7 - 98.3 fL 07/07/2022 4:01 AM [facility] MCH 30.4 26.7 - 34.0 pg 07/07/2022 4:01 AM [facility] MCHC 32.9 30.8 - 35.9 g/dL 07/07/2022 4:01 AM [facility] RDW-SD 47.0 36.0 - 50.0 fL 07/07/2022 4:01 AM [facility] RDW-CV 13.9 11.2 - 14.8 % 07/07/2022 4:01 AM [facility] Platelet Count 162 150 - 400 10? 3 /uL 07/07/2022 4:01 AM [facility] MPV 12.7 9.4 - 12.9 fL 07/07/2022 4:01 AM [facility] nRBC Absolute 0.00 0 10? 3 /uL 07/07/2022 4:01 AM [facility] nRBC Auto 0.0 0 /100 WBC 07/07/2022 4:01 AM [facility] Neutrophils % 52.9 35.0 - 70.0 % 07/07/2022 4:01 AM [facility] Lymphocytes % 26.5 20.0 - 43.0 % 07/07/2022 4:01 AM [facility] Monocytes % 12.0 5.0 - 13.0 % 07/07/2022 4:01 AM [facility] Eosinophils % 7.6(H) 0.0 - 6.0 % 07/07/2022 4:01 AM [facility] Basophil % 0.2 0.0 - 2.0 % 07/07/2022 4:01 AM [facility] Neutrophils Absolute 2.63 1.60 - 7.00 10? 3 /uL 07/07/2022 4:01 AM [employer] [employer] [facility] Lymphocyte Absolute 1.32 1.10 - 3.90 10? 3 /uL 07/07/2022 4:01 AM [facility] Monocytes Absolute 0.60 0.26 - 1.07 10? 3 /uL 07/07/2022 4:01 AM [facility] Eosinophils Absolute 0.38 0.00 - 0.47 10? 3 /uL 07/07/2022 4:01 AM [facility] Basophils Absolute 0.01 0.00 - 0.08 10? 3 /uL 07/07/2022 4:01 AM [facility] Immature Granulocytes % 0.8 0.0 - 1.0 % 07/07/2022 4:01 AM [facility] Immature Granulocytes Absolute 0.04 07/07/2022 4:01 AM [facility] Blood BLOOD SPECIMEN / Unknown Venipuncture / Unknown 07/07/2022 3:45 AM [facility] [employer] 07/07/2022 3:54 AM [employer] [employer] Artur Mcgraw MD LAB - HEMATOLOGY OR DERABLES [address] [address], [facility] [phone] * VALPROIC ACID LEVEL (07/07/2022 3:45 AM [employer] [employer]) Valproic Acid Total 72 50 - 100 ug/mL 07/07/2022 4:20 AM [facility] Blood BLOOD SPECIMEN / Unknown Venipuncture / Unknown 07/07/2022 3:45 AM [employer] [employer] 07/07/2022 3:53 AM [employer] [employer] Ramay Witt MD LAB - CHEMISTRY ORDERABLES [address] [address], [place] [phone] * TRIGLYCERIDES BLOOD (07/07/2022 3:45 AM [employer] [employer]) Triglycerides 102 <150 mg/dL 07/07/2022 4:25 AM [facility] Comment: ATP III Classification of Triglycerides: ?<150 mg/dL: ??Normal ? 150 - 199 mg/dL: ??Borderline High ? 200 - 400 mg/dL: ??High ?>500 mg/dL: ??Very High Blood BLOOD SPECIMEN / Unknown Venipuncture / Unknown 07/07/2022 3:45 AM [employer] [employer] 07/07/2022 3:54 AM [employer] [employer] Ramya Witt MD LAB - CHEMISTRY ORDERABLES [facility] [address] [place] [address], [facility] [phone] * (ABNORMAL) BASIC METABOLIC PANEL (CALCIUM TOTAL) (07/06/2022 8:25 PM [employer] [employer]) BUN 34(H) 7 - 26 mg/dL 07/06/2022 9:03 PM [facility] Creatinine 2.48(H) 0.71 - 1.16 mg/dL 07/06/2022 9:03 PM [facility] Sodium 146(H) 136 - 145 mmol/L 07/06/2022 9:03 PM [facility] Potassium 3.7 3.5 - 4.5 mmol/L 07/06/2022 9:03 PM [facility] Chloride 119(H) 98 - 107 mmol/L 07/06/2022 9:03 PM [facility] CO2 19(L) 22 - 29 mmol/L 07/06/2022 9:03 PM [facility] Glucose 88 70 - 115 mg/dL 07/06/2022 9:03 PM [facility] Calcium 7.4(L) 8.4 - 10.2 mg/dL 07/06/2022 9:03 PM [facility] Anion Gap 12 8 - 18 07/06/2022 9:03 PM [facility] BUN/Creatinine Ratio 14 7 - 23 07/06/2022 9:03 PM [facility] Osmolality Calculated 309(H) 270 - 300 mOsm/kg 07/06/2022 9:03 PM [facility] eGFR by CKD-EPI 29(L) >=90 mL/min/1.7 3 m2 07/06/2022 9:03 PM [facility] Blood BLOOD SPECIMEN / Unknown Venipuncture / Unknown 07/06/2022 8:25 PM [employer] [employer] 07/06/2022 8:33 PM [employer] [employer] Ramya Witt MD LAB - CHEMISTRY ORDERABLES [facility] [address] [place] [address], [facility] [phone] * (ABNORMAL) BASIC METABOLIC PANEL (CALCIUM TOTAL) (07/06/2022 12:18 PM [employer] [employer]) BUN 37(H) 7 - 26 mg/dL 07/06/2022 12:52 PM [facility] Creatinine 2.73(H) 0.71 - 1.16 mg/dL 07/06/2022 12:52 PM [facility] Sodium 144 136 - 145 mmol/L 07/06/2022 12:52 PM [facility] Potassium 4.7(H) 3.5 - 4.5 mmol/L 07/06/2022 12:52 PM [facility] Chloride 115(H) 98 - 107 mmol/L 07/06/2022 12:52 PM [facility] CO2 22 22 - 29 mmol/L 07/06/2022 12:52 PM [facility] Glucose 91 70 - 115 mg/dL 07/06/2022 12:52 PM [facility] Calcium 8.1(L) 8.4 - 10.2 mg/dL 07/06/2022 12:52 PM [facility] Anion Gap 12 8 - 18 07/06/2022 12:52 PM [facility] BUN/Creatinine Ratio 14 7 - 23 07/06/2022 12:52 PM [facility] Osmolality Calculated 306(H) 270 - 300 mOsm/kg 07/06/2022 12:52 PM [facility] eGFR by CKD-EPI 26(L) >=90 mL/min/1.7 3 m2 07/06/2022 12:52 PM [facility] Blood BLOOD SPECIMEN / Unknown Venipuncture / Unknown 07/06/2022 12:18 PM [facility] [employer] 07/06/2022 12:27 PM [employer] [employer] Ramya Witt MD LAB - CHEMISTRY ORDERABLES [facility] [address] [place] [address], [facility] [phone] * (ABNORMAL) BLOOD GASES ART + COOX PANEL (07/06/2022 5:18 AM [facility] [employer]) pH Arterial 7.48(H) 7.35 - 7.45 pH 07/06/2022 5:25 AM [facility] pO2 Arterial 69(L) 80 - 100 mmHg 07/06/2022 5:25 AM [facility] pCO2 Arterial 32(L) 35 - 45 mmHg 5:25 AM [facility] HCO3 Arterial 24 20 - 30 mmol/l 07/06/2022 5:25 AM [facility] BE Arterial 0.7 -2.0 - 2.0 mmol/L 07/06/2022 5:25 AM [facility] Oxyhemoglobin Arterial 93.5 % 07/06/2022 5:25 AM [facility] Dexoyhemoglobin (HHB) % 3.6 % 07/06/2022 5:25 AM [facility] Methemoglobin 1.0 0.0 - 2.0 % 07/06/2022 5:25 AM [facility] Carboxyhemoglobin 1.8 0.0 - 2.0 % 2022 5:25 AM [facility] O2 Content Arterial 13.3 Interpret within clinical context ml/dL 07/06/2022 5:25 AM [facility] Hemoglobin by COOX 10.1(L) 12.0 - 17.6 g/dL 07/06/2022 5:25 AM [facility] O2 Saturation Arterial 96 90 - 100 % 07/06/2022 5:25 AM [facility] FI O2 Arterial 60.0 % 07/06/2022 5:25 AM ATTORNEY LAW CLERK [facility] Blood, arterial ARTERIAL BLOOD SPECIMEN / Unknown Arterial Puncture / Unknown 07/06/2022 5:18 AM ATTORNEY LAW CLERK 07/06/2022 5:23 AM [facility] - 07/06/2022 5:25 AM [facility] Carboxyhemoglobin Normal Concentration: Non-smokers: 0-2%; Smokers: 0-9%; Toxic: >20% Ramya Witt MD LAB - BLOOD GAS ES ORDERABLES [facility] [address] [place] [address], [facility] [phone] * (ABNORMAL) BASIC METABOLIC PANEL (CALCIUM TOTAL) (07/06/2022 3:49 AM [facility]) BUN 34(H) 7 - 26 mg/dL 07/06/2022 4:20 AM [facility] Creatinine 2.76(H) 0.71 - 1.16 mg/dL 07/06/2022 4:20 AM [facility] Sodium 150(H) 136 - 145 mmol/L 07/06/2022 4:20 AM [facility] Potassium 2.7(L) 3.5 - 4.5 mmol/L 07/06/2022 4:20 AM [facility] Chloride 115(H) 98 - 107 mmol/L 07/06/2022 4:20 AM [facility] CO2 21(L) 22 - 29 mmol/L 07/06/2022 4:20 AM [facility] Glucose 108 70 - 115 mg/dL 07/06/2022 4:20 AM [facility] Calcium 7.6(L) 8.4 - 10.2 mg/dL 07/06/2022 4:20 AM [facility] Anion Gap 17 8 - 18 07/06/2022 4:20 AM [facility] BUN/Creatinine Ratio 12 7 - 23 07/06/2022 4:20 AM [facility] Osmolality Calculated 318(H) 270 - 300 mOsm/kg 07/06/2022 4:20 AM [facility] eGFR by CKD-EPI 25(L) >=90 mL/min/1.7 3 m2 07/06/2022 4:20 AM ATTORNEY LAW CLERK [facility] Blood BLOOD SPECIMEN / Unknown Venipuncture / Unknown 07/06/2022 3:49 AM ATTORNEY LAW CLERK 07/06/2022 3:54 AM ATTORNEY LAW CLERK Ramya Witt MD LAB - CHEMISTRY ORDERABLES Performing Organization Address City/[facility]/ZIP Co de Phone Number [address] [address], [facility] [phone] * PHOSPHORUS BLOOD (07/06/2022 3:49 AM ATTORNEY LAW CLERK) Phosphorus 2.9 2.8 - 5.1 mg/dL 07/06/2022 4:20 AM [facility] Blood BLOOD SPECIMEN / Unknown Venipuncture / Unknown 07/06/2022 3:49 AM ATTORNEY LAW CLERK 07/06/2022 3:54 AM ATTORNEY LAW CLERK Randy Diaz MD LAB - CHEMISTRY [facility] Performing Organization Address [facility]/ZIP Co de Phone Number [address] [address], [place] [phone] * MAGNESIUM BLOOD (07/06/2022 3:49 AM ATTORNEY LAW CLERK) Magnesium 2.0 1.6 - 2.6 mg/dL 07/06/2022 4:20 AM [facility] Blood BLOOD SPECIMEN / Unknown Venipuncture / Unknown 07/06/2022 3:49 AM ATTORNEY LAW CLERK 07/06/2022 3:54 AM ATTORNEY LAW CLERK Randy Diaz MD LAB - CHEMISTRY [facility] Performing Organization Address City/[facility]/ZIP Co de Phone Number [address] [address], [place] [phone] * (ABNORMAL) CBC W AUTO DIFFERENTIAL (07/06/2022 3:49 AM ATTORNEY LAW CLERK) WBC 6.5 3.5 - 10.5 10? 3 /uL 07/06/2022 4:05 AM [facility] RBC 3.16(L) 4.30 - 5.70 10? 6 /uL 07/06/2022 4:05 AM [facility] Hemoglobin 9.7(L) 12.0 - 17.6 g/dL 07/06/2022 4:05 AM [facility] Hematocrit 29.3(L) 35.2 - 51.7 % 07/06/2022 4:05 AM [facility] MCV 92.7 80.7 - 98.3 fL 07/06/2022 4:05 AM [facility] MCH 30.7 26.7 - 34.0 pg 07/06/2022 4:05 AM [facility] MCHC 33.1 30.8 - 35.9 g/dL 07/06/2022 4:05 AM [facility] RDW-SD 46.5 36.0 - 50.0 fL 07/06/2022 4:05 AM [facility] RDW-CV 13.6 11.2 - 14.8 % 07/06/2022 4:05 AM [facility] Platelet Count 157 150 - 400 10? 3 /uL 07/06/2022 4:05 AM [facility] MPV 11.8 9.4 - 12.9 fL 07/06/2022 4:05 AM [facility] nRBC Absolute 0.00 0 10? 3 /uL 07/06/2022 4:05 AM [facility] nRBC Auto 0.0 0 /100 WBC 07/06/2022 4:05 AM [facility] Neutrophils % 53.9 35.0 - 70.0 % 07/06/2022 4:05 AM [facility] Lymphocytes % 21.9 20.0 - 43.0 % 07/06/2022 4:05 AM [facility] Monocytes % 18.4(H) 5.0 - 13.0 % 07/06/2022 4:05 AM [facility] Eosinophils % 4.9 0.0 - 6.0 % 07/06/2022 4:05 AM [facility] Basophil % 0.3 0.0 - 2.0 % 07/06/2022 4:05 AM ATTORNEY LAW CLERK [facility] Neutrophils Absolute 3.51 1.60 - 7.00 10? 3 /uL 07/06/2022 4:05 AM [facility] Lymphocyte Absolute 1.43 1.10 - 3.90 10? 3 /uL 07/06/2022 4:05 AM [facility] Monocytes Absolute 1.20(H) 0.26 - 1.07 10? 3 /uL 07/06/2022 4:05 AM [facility] Eosinophils Absolute 0.32 0.00 - 0.47 10? 3 /uL 07/06/2022 4:05 AM [facility] Basophils Absolute 0.02 0.00 - 0.08 10? 3 /uL 07/06/2022 4:05 AM [facility] Immature Granulocytes % 0.6 0.0 - 1.0 % 07/06/2022 4:05 AM [facility] Immature Granulocytes Absolute 0.04 07/06/2022 4:05 AM [facility] Blood BLOOD SPECIMEN / Unknown Venipuncture / Unknown 07/06/2022 3:49 AM ATTORNEY LAW CLERK 07/06/2022 3:55 AM [facility] Artur Mcgraw MD LAB - HEMATOLOGY OR DERABLES [facility] [address] [place] [address], [facility] [phone] * (ABNORMAL) BLOOD GASES ART + COOX PANEL (07/05/2022 10:42 PM ATTORNEY LAW CLERK) pH Arterial 7.48(H) 7.35 - 7.45 pH 07/05/2022 10:56 PM [facility] pO2 Arterial 163(H) 80 - 100 mmHg 07/05/2022 10:56 PM [facility] pCO2 Arterial 33(L) 35 - 45 mmHg 10:56 PM [facility] HCO3 Arterial 25 20 - 30 mmol/l 07/05/2022 10:56 PM [facility] BE Arterial 1.4 -2.0 - 2.0 mmol/L 07/05/2022 10:56 PM [facility] Oxyhemoglobin Arterial 97.0 % 07/05/2022 10:56 PM [facility] Dexoyhemoglobin (HHB) % 0.0 % 07/05/2022 10:56 PM [facility] Methemoglobin 2.0 0.0 - 2.0 % 07/05/2022 10:56 PM [facility] Carboxyhemoglobin 1.0 0.0 - 2.0 % 2022 10:56 PM [facility] O2 Content Arterial 14.4 Interpret within clinical context ml/dL 07/05/2022 10:56 PM [facility] Hemoglobin by COOX 10.3(L) 12.0 - 17.6 g/dL 07/05/2022 10:56 PM [facility] O2 Saturation Arterial 100 90 - 100 % 07/05/2022 10:56 PM [facility] FI O2 Arterial 100.0 % 07/05/2022 10:56 PM [facility] Blood, arterial ARTERIAL BLOOD SPECIMEN / Unknown Arterial Puncture / Unknown 07/05/2022 10:42 PM ATTORNEY LAW CLERK 07/05/2022 10:50 PM [facility] - 07/05/2022 10:56 PM ATTORNEY LAW CLERK Carboxyhemoglobin Normal Concentration: Non-smokers: 0-2%; Smokers: 0-9%; Toxic: >20% Ramya Witt MD LAB - BLOOD GAS ES ORDERABLES [facility] [address] [place] [address], [facility] [phone] * CULTURE BRONCHIAL WASHING+GRAM STAIN (07/05/2022 10:31 PM ATTORNEY LAW CLERK) Culture No growth JELLY 07/07/2022 3:52 PM ATTORNEY LAW CLERK [facility] Gram Stain Rare Polymorphonuclear cells 07/07/2022 3:52 PM ATTORNEY LAW CLERK [facility] Gram Stain Rare Squamous epithelial cells 07/07/2022 3:52 PM [facility] Gram Stain No organisms seen 023 3:52 PM [facility] Microbiology SPECIMEN FROM LUNG OBTAINED BY BRONCHIAL WASHING PROCEDURE / Unknown Collection / Unknown 07/05/2022 10:31 PM ATTORNEY LAW CLERK 07/05/2022 10:50 PM ATTORNEY LAW CLERK Ramya Witt MD LAB - MICROBIOL OGY ORDERABLES [facility] [address] [place], [place] [address], [facility] [phone] * CLOBAZAM QUANT BLOOD (07/05/2022 10:30 PM ATTORNEY LAW CLERK) Clobazam 222 30 - 300 ng/mL 07/08/2022 5:43 AM ATTORNEY LAW CLERK [facility] [facility] ([facility]) Comment: INTERPRETIVE INFORMATION: Clobazam and Metabolite, Quant, ?S/P Clobazam Therapeutic Range: 30-300 ng/mL Toxic Range: Greater than 500 ng/mL N-Desmethylclobazam Therapeutic Range: 300-3000 ng/mL Toxic Range: Greater than 5000 ng/mL Clobazam is a benzodiazepine drug indicated for adjunctive treatment for seizures associated with Laci-Gastaut syndrome in patients 2 years and older. ??The therapeutic range is based on serum, pre-dose (trough) draw collection at steady-state concentration. ??The pharmacokinetics of clobazam are influenced by drug-drug interactions and by poor [id number] metabolism. ??The metabolite, N-desmethylclobazam has about 20% activity of clobazam. ??Adverse effects may include constipation, somnolence, sedation and skin rash. ??The concomitant use of clobazam with other central nervous system ([employer]) depressants may increase the risk of somnolence and sedation. Test developed and characteristics determined by [facility]. See Compliance Statement B: MyPublisher.[employer]idify/Photoblog N-Desmethylclobazam 1178 300 - 3000 ng/mL 07/08/2022 5:43 AM ATTORNEY LAW CLERK [facility] ([facility]) Comment: Performed By: [facility] [address] [place] [address] Biomedical Equipment Technician: Power Milian MD, PhD Blood BLOOD SPECIMEN / Unknown Venipuncture / Unknown 07/05/2022 10:30 PM ATTORNEY LAW CLERK 07/05/2022 10:50 PM ATTORNEY LAW CLERK Tolu Leach MD LAB - CHEMISTRY ORDE GATITO Performing Organization Address City/[facility]/ZIP Co de Phone Number [facility]) [address] [place] [address] * (ABNORMAL) VALPROIC ACID FREE+TOTAL PANEL (07/05/2022 10:30 PM ATTORNEY LAW CLERK) Valproic Acid % Free 75(H) 5 - 18 % 07/07/2022 7:34 PM ATTORNEY LAW CLERK [facility] ([facility]) Comment: The result is physiologically unusual. ??The [...] include headache, somnolence and dizziness. Performed By: [facility] [address] [place] [address] Biomedical Equipment Technician: Power Milian MD, PhD Valproic Acid Free 42(H) 7 - 23 ug/mL 07/07/2022 7:34 PM ATTORNEY LAW CLERK [facility] ([facility]) Valproic Acid Total 56 50 - 125 ug/mL 07/07/2022 7:34 PM ATTORNEY LAW CLERK [facility] ([facility]) Blood BLOOD SPECIMEN / Unknown Venipuncture / Unknown 07/05/2022 10:30 PM ATTORNEY LAW CLERK 07/05/2022 10:50 PM ATTORNEY LAW CLERK Tolu Leach MD LAB - THERAPEUTIC DR UG MONITORING ORDERABLES Performing Organization Address City/[facility]/ZIP Co de Phone Number [id number] ([facility]) [address] * XR CHEST 1VW PORTABLE (07/05/2022 10:14 PM ATTORNEY LAW CLERK) Anatomical Region Laterality Modality Chest Radiographic Cynthia ging 07/06/2022 9:01 AM ATTORNEY LAW CLERK Narrative 07/06/2022 10:59 AM ATTORNEY LAW CLERK EXAMINATION: XR CHEST 1VW PORTABLE HISTORY: R91.8: [...] intact. > Dictated by Guilherme Foy MD (founder and president). Rachel Thomason MD have personally reviewed [...] intact. > Dictated by Guilherme Foy MD (founder and president). Rachel Thomason MD have personally reviewed and interpreted this examination/study. > Interpreting Provider: Rachel Phillips MD on 07/06/2022 10:59 AM Ramya Witt MD DIAGNOSTIC IMAG ING ORDERABLES * (ABNORMAL) BASIC METABOLIC PANEL (CALCIUM TOTAL) (07/05/2022 8:39 PM ATTORNEY LAW CLERK) BUN 37(H) 7 - 26 mg/dL 07/05/2022 9:21 PM [facility] Creatinine 3.08(H) 0.71 - 1.16 mg/dL 07/05/2022 9:21 PM [facility] Sodium 151(H) 136 - 145 mmol/L 07/05/2022 9:21 PM [facility] Potassium 3.5 3.5 - 4.5 mmol/L 07/05/2022 9:21 PM [facility] Chloride 113(H) 98 - 107 mmol/L 07/05/2022 9:21 PM [facility] CO2 26 22 - 29 mmol/L 07/05/2022 9:21 PM [facility] Glucose 109 70 - 115 mg/dL 07/05/2022 9:21 PM [facility] Calcium 9.1 8.4 - 10.2 mg/dL 07/05/2022 9:21 PM [facility] Anion Gap 16 8 - 18 07/05/2022 9:21 PM [facility] BUN/Creatinine Ratio 12 7 - 23 07/05/2022 9:21 PM [facility] Osmolality Calculated 321(H) 270 - 300 mOsm/kg 07/05/2022 9:21 PM [facility] eGFR by CKD-EPI 22(L) >=90 mL/min/1.7 3 m2 07/05/2022 9:21 PM [facility] Blood BLOOD SPECIMEN / Unknown Venipuncture / Unknown 07/05/2022 8:39 PM ATTORNEY LAW CLERK 07/05/2022 8:51 PM ATTORNEY LAW CLERK Ramya Witt MD LAB - CHEMISTRY ORDERABLES [facility] [address] [place] [address], [facility] [phone] * XR CHEST 1VW PORTABLE (07/05/2022 5:23 PM ATTORNEY LAW CLERK) Anatomical Region Laterality Modality Chest Radiographic Cynthia ging 07/06/2022 8:24 AM ATTORNEY LAW CLERK Narrative 07/06/2022 10:38 AM ATTORNEY LAW CLERK EXAMINATION: XR CHEST 1VW PORTABLE HISTORY: J98.11: [...] pneumothorax. > Dictated by Arthur Hawk MD (founder and president). Rachel Thomason MD have personally reviewed [...] pneumothorax. > Dictated by Arthur Hawk MD (founder and president). Rachel Thomason MD have personally reviewed and interpreted this examination/study. > Interpreting Provider: Rachel Phillips MD on 07/06/2022 10:38 AM Ramya Witt MD DIAGNOSTIC IMAG ING ORDERABLES * XR CHEST 1VW PORTABLE (07/05/2022 9:41 AM ATTORNEY LAW CLERK) Anatomical Region Laterality Modality Chest Radiographic Cynthia ging 07/05/2022 9:47 AM ATTORNEY LAW CLERK Narrative 07/05/2022 10:56 PM ATTORNEY LAW CLERK EXAMINATION: XR CHEST 1VW PORTABLE HISTORY: J96.01: Acute respiratory failure with hypoxia (CMS/HCC) COMPARISON: Chest x-ray dated 07/04/2022 FINDINGS/IMPRESSION: Collapse of right lung with mediastinal shift towards the right. Small pleural effusion on the left is possible. This likely is due to mucous plugging ??The cardiomediastinal silhouette is normal. > Dictated by Guilherme Foy MD (founder and president). John Thomason MD have personally reviewed [...] normal. > Dictated by Guilherme Foy MD (founder and president). John Thomason MD have personally reviewed and interpreted this examination/study. > Interpreting Provider: John Graham MD on 07/05/2022 10:56 PM Ramya Witt MD DIAGNOSTIC IMAG ING ORDERABLES * PHOSPHORUS BLOOD (07/05/2022 2:26 AM ATTORNEY LAW CLERK) Phosphorus 5.0 2.8 - 5.1 mg/dL 07/05/2022 3:03 AM ATTORNEY LAW CLERK [facility] Blood BLOOD SPECIMEN / Unknown Venipuncture / Unknown 07/05/2022 2:26 AM ATTORNEY LAW CLERK 07/05/2022 2:33 AM ATTORNEY LAW CLERK Randy Diaz MD LAB - CHEMISTRY [facility]SHAL MEDER[facility] [address] [place] [address], [facility] [phone] * MAGNESIUM BLOOD (07/05/2022 2:26 AM ATTORNEY LAW CLERK) Pathologist [facility] Magnesium 2.6 1.6 - 2.6 mg/dL 07/05/2022 3:03 AM [facility] Blood BLOOD SPECIMEN / Unknown Venipuncture / Unknown 07/05/2022 2:26 AM ATTORNEY LAW CLERK 07/05/2022 2:33 AM ATTORNEY LAW CLERK Randy Diaz MD LAB - CHEMISTRY [facility] [address] [address], [facility] [phone] * (ABNORMAL) CBC W AUTO DIFFERENTIAL (07/05/2022 2:26 AM ATTORNEY LAW CLERK) [facility] WBC 5.4 3.5 - 10.5 10? 3 /uL 07/05/2022 2:58 AM [facility] RBC 2.88(L) 4.30 - 5.70 10? 6 /uL 07/05/2022 2:58 AM [facility] Hemoglobin 8.9(L) 12.0 - 17.6 g/dL 07/05/2022 2:58 AM [facility] Hematocrit 27.3(L) 35.2 - 51.7 % 07/05/2022 2:58 AM [facility] MCV 94.8 80.7 - 98.3 fL 07/05/2022 2:58 AM [facility] MCH 30.9 26.7 - 34.0 pg 07/05/2022 2:58 AM [facility] MCHC 32.6 30.8 - 35.9 g/dL 07/05/2022 2:58 AM [facility] RDW-SD 47.2 36.0 - 50.0 fL 07/05/2022 2:58 AM [facility] RDW-CV 13.6 11.2 - 14.8 % 07/05/2022 2:58 AM [facility] Platelet Count 143(L) 150 - 400 10? 3 /uL 07/05/2022 2:58 AM [facility] MPV 12.2 9.4 - 12.9 fL 07/05/2022 2:58 AM [facility] Immature Platelet Fraction 5.3 1.1 - 6.2 % 07/05/2022 2:58 AM [facility] nRBC Absolute 0.00 0 10? 3 /uL 07/05/2022 2:58 AM [facility] nRBC Auto 0.0 0 /100 WBC 07/05/2022 2:58 AM [facility] Neutrophils % 56.9 35.0 - 70.0 % 07/05/2022 2:58 AM [facility] Lymphocytes % 23.0 20.0 - 43.0 % 07/05/2022 2:58 AM [facility] Monocytes % 15.3(H) 5.0 - 13.0 % 07/05/2022 2:58 AM [facility] Eosinophils % 4.2 0.0 - 6.0 % 07/05/2022 2:58 AM [facility] Basophil % 0.2 0.0 - 2.0 % 07/05/2022 2:58 AM [facility] Neutrophils Absolute 3.10 1.60 - 7.00 10? 3 /uL 07/05/2022 2:58 AM [facility] Lymphocyte Absolute 1.25 1.10 - 3.90 10? 3 /uL 07/05/2022 2:58 AM [facility] Monocytes Absolute 0.83 0.26 - 1.07 10? 3 /uL 07/05/2022 2:58 AM [facility] Eosinophils Absolute 0.23 0.00 - 0.47 10? 3 /uL 07/05/2022 2:58 AM [facility] Basophils Absolute 0.01 0.00 - 0.08 10? 3 /uL 07/05/2022 2:58 AM [facility] Immature Granulocytes % 0.4 0.0 - 1.0 % 07/05/2022 2:58 AM [facility] Immature Granulocytes Absolute 0.02 07/05/2022 2:58 AM [facility] Blood BLOOD SPECIMEN / Unknown Venipuncture / Unknown 07/05/2022 2:26 AM ATTORNEY LAW CLERK 07/05/2022 2:33 AM ATTORNEY LAW CLERK Artur Mcgraw MD LAB - HEMATOLOGY OR DERABLES [facility] [address] [place] [address], [facility] [phone] * (ABNORMAL) BASIC METABOLIC PANEL (CALCIUM TOTAL) (07/05/2022 2:26 AM ATTORNEY LAW CLERK) BUN 40(H) 7 - 26 mg/dL 07/05/2022 3:03 AM [facility] Creatinine 3.43(H) 0.71 - 1.16 mg/dL 07/05/2022 3:03 AM [facility] Sodium 151(H) 136 - 145 mmol/L 07/05/2022 3:03 AM [facility] Potassium 4.1 3.5 - 4.5 mmol/L 07/05/2022 3:03 AM [facility] Chloride 115(H) 98 - 107 mmol/L 07/05/2022 3:03 AM [facility] CO2 25 22 - 29 mmol/L 07/05/2022 3:03 AM [facility] Glucose 83 70 - 115 mg/dL 07/05/2022 3:03 AM [facility] Calcium 9.0 8.4 - 10.2 mg/dL 07/05/2022 3:03 AM [facility] Anion Gap 15 8 - 18 07/05/2022 3:03 AM [facility] BUN/Creatinine Ratio 12 7 - 23 07/05/2022 3:03 AM [facility] Osmolality Calculated 321(H) 270 - 300 mOsm/kg 07/05/2022 3:03 AM [facility] eGFR by CKD-EPI 20(L) >=90 mL/min/1.7 3 m2 07/05/2022 3:03 AM [facility] Blood BLOOD SPECIMEN / Unknown Venipuncture / Unknown 07/05/2022 2:26 AM ATTORNEY LAW CLERK 07/05/2022 2:33 AM ATTORNEY LAW CLERK Artur Mcgraw MD LAB - CHEMISTRY ORD ERABLES [facility] [address] [place] [address], [facility] [phone] * XR CHEST 1VW PORTABLE (07/04/2022 1:12 PM ATTORNEY LAW CLERK) Anatomical Region Laterality Modality Chest Radiographic Cynthia ging 07/04/2022 2:01 PM ATTORNEY LAW CLERK Narrative 07/04/2022 4:34 PM ATTORNEY LAW CLERK PROCEDURE: ??XR CHEST 1VW PORTABLE, DATE/TIME OF EXAM: ??07/04/2022 1:12 PM, LOCATION ??[facility] INDICATION: T17.908S: Aspiration into airway, sequela ADDITIONAL [...] obscured. Report dictated by Usman Arce MD, (founder and president). IEron have personally reviewed and interpreted this examination/study. > Interpreting Provider: Eron Payton on 07/04/2022 4:34 PM Procedure Note Eron Payton MD - 07/04/2022 PROCEDURE: XR CHEST 1VW PORTABLE, DATE/TIME OF EXAM: 07/04/2022 1:12 PM, LOCATION [facility] INDICATION: T17.908S: Aspiration into airway, sequela ADDITIONAL [...] obscured. Report dictated by Usman Arce MD, (founder and president). Eron Thomason have personally reviewed and interpreted this examination/study. > Interpreting Provider: Eron Payton on 07/04/2022 4:34 PM Randy Diaz MD DIAGNOSTIC IMAGING O RDERABLES * XR CHEST 1VW PORTABLE (07/04/2022 10:27 AM ATTORNEY LAW CLERK) Anatomical Region Laterality Modality Chest Radiographic Cynthia ging 07/04/2022 1:11 PM ATTORNEY LAW CLERK Narrative 07/04/2022 4:18 PM ATTORNEY LAW CLERK PROCEDURE: ??XR CHEST 1VW PORTABLE, DATE/TIME OF EXAM: ??07/04/2022 10:27 AM, LOCATION ??[facility] INDICATION: J69.0: Aspiration pneumonitis (CMS/HCC) ADDITIONAL CLINICAL [...] obscured. Report dictated by Usman Arce MD, (founder and president). Eron Thomason have personally reviewed and interpreted this examination/study. > Interpreting Provider: Eron Payton on 07/04/2022 4:18 PM Procedure Note Eron Payton MD - 07/04/2022 PROCEDURE: XR CHEST 1VW PORTABLE, DATE/TIME OF EXAM: 07/04/2022 10:27AM, LOCATION [facility] INDICATION: J69.0: Aspiration pneumonitis (CMS/HCC) ADDITIONAL CLINICAL [...] obscured. Report dictated by Usman Arce MD, (founder and president). I, Eron Payton have personally reviewed and interpreted this examination/study. > Interpreting Provider: Eron Payton on 07/04/2022 4:18 PM Randy Diaz MD DIAGNOSTIC IMAGING O RDERABLES * (ABNORMAL) PHOSPHORUS BLOOD (07/04/2022 1:45 AM ATTORNEY LAW CLERK) Phosphorus 5.9(H) 2.8 - 5.1 mg/dL 07/04/2022 2:20 AM ATTORNEY LAW CLERK [facility] Blood BLOOD SPECIMEN / Unknown Venipuncture / Unknown 07/04/2022 1:45 AM ATTORNEY LAW CLERK 07/04/2022 1:52 AM ATTORNEY LAW CLERK Randy Diaz MD LAB - CHEMISTRY MARSHAL MEDEROS [address] [address], [facility] [phone] * MAGNESIUM BLOOD (07/04/2022 1:45 AM ATTORNEY LAW CLERK) Pathologist [facility] Magnesium 2.4 1.6 - 2.6 mg/dL 07/04/2022 2:20 AM ATTORNEY [employer] [facility] Blood BLOOD SPECIMEN / Unknown Venipuncture / Unknown 07/04/2022 1:45 AM [employer]NEY [employer] 07/04/2022 1:52 AM [employer]ORNEY [employer] CLERK Randy Diaz MD LAB - CHEMISTRY [facility] [address] [address], [facility] [phone] * (ABNORMAL) CBC W AUTO DIFFERENTIAL (07/04/2022 1:45 AM ATTORNEY LAW CLERK) WBC 5.9 3.5 - 10.5 10? 3 /uL 07/04/2022 1:57 AM [employer]ORNEY [employer] [facility] RBC 3.28(L) 4.30 - 5.70 10? 6 /uL 07/04/2022 1:57 AM [facility] Hemoglobin 10.1(L) 12.0 - 17.6 g/dL 07/04/2022 1:57 AM [facility] Hematocrit 30.9(L) 35.2 - 51.7 % 07/04/2022 1:57 AM [facility] MCV 94.2 80.7 - 98.3 fL 07/04/2022 1:57 AM [facility] MCH 30.8 26.7 - 34.0 pg 07/04/2022 1:57 AM [facility] MCHC 32.7 30.8 - 35.9 g/dL 07/04/2022 1:57 AM [facility] RDW-SD 45.2 36.0 - 50.0 fL 07/04/2022 1:57 AM [facility] RDW-CV 13.2 11.2 - 14.8 % 07/04/2022 1:57 AM [facility] Platelet Count 141(L) 150 - 400 10? 3 /uL 07/04/2022 1:57 AM [facility] MPV 12.1 9.4 - 12.9 fL 07/04/2022 1:57 AM [facility] nRBC Absolute 0.00 0 10? 3 /uL 07/04/2022 1:57 AM [facility] nRBC Auto 0.0 0 /100 WBC 07/04/2022 1:57 AM [facility] Neutrophils % 64.0 35.0 - 70.0 % 07/04/2022 1:57 AM [facility] Lymphocytes % 17.7(L) 20.0 - 43.0 % 07/04/2022 1:57 AM [facility] Monocytes % 14.9(H) 5.0 - 13.0 % 07/04/2022 1:57 AM [facility] Eosinophils % 2.9 0.0 - 6.0 % 07/04/2022 1:57 AM [facility] Basophil % 0.2 0.0 - 2.0 % 07/04/2022 1:57 AM [facility] Neutrophils Absolute 3.77 1.60 - 7.00 10? 3 /uL 07/04/2022 1:57 AM [facility] Lymphocyte Absolute 1.04(L) 1.10 - 3.90 10? 3 /uL 07/04/2022 1:57 AM [facility] Monocytes Absolute 0.88 0.26 - 1.07 10? 3 /uL 07/04/2022 1:57 AM [facility] Eosinophils Absolute 0.17 0.00 - 0.47 10? 3 /uL 07/04/2022 1:57 AM [facility] Basophils Absolute 0.01 0.00 - 0.08 10? 3 /uL 07/04/2022 1:57 AM [facility] Immature Granulocytes % 0.3 0.0 - 1.0 % 07/04/2022 1:57 AM [facility] Immature Granulocytes Absolute 0.02 07/04/2022 1:57 AM [facility] Blood BLOOD SPECIMEN / Unknown Venipuncture / Unknown 07/04/2022 1:45 AM [employer]ORNEY [employer] CLERK 07/04/2022 1:51 AM [facility] Artur Mcgraw MD LAB - HEMATOLOGY OR DERABLES Performing Organization Address City/State/[facility] Co de Phone Number [facility] [address] [place] [address], [facility] [phone] * (ABNORMAL) BASIC METABOLIC PANEL (CALCIUM TOTAL) (07/04/2022 1:45 AM ATTORNEY LAW CLERK) BUN 38(H) 7 - 26 mg/dL 07/04/2022 2:20 AM [facility] Creatinine 3.55(H) 0.71 - 1.16 mg/dL 07/04/2022 2:20 AM [facility] Sodium 148(H) 136 - 145 mmol/L 07/04/2022 2:20 AM [facility] Potassium 4.6(H) 3.5 - 4.5 mmol/L 07/04/2022 2:20 AM [facility] Chloride 112(H) 98 - 107 mmol/L 07/04/2022 2:20 AM [facility] CO2 23 22 - 29 mmol/L 07/04/2022 2:20 AM [facility] Glucose 90 70 - 115 mg/dL 07/04/2022 2:20 AM [facility] Calcium 9.4 8.4 - 10.2 mg/dL 07/04/2022 2:20 AM [facility] Anion Gap 18 8 - 18 07/04/2022 2:20 AM [facility] BUN/Creatinine Ratio 11 7 - 23 07/04/2022 2:20 AM [facility] Osmolality Calculated 315(H) 270 - 300 mOsm/kg 07/04/2022 2:20 AM [facility] eGFR by CKD-EPI 19(L) >=90 mL/min/1.7 3 m2 07/04/2022 2:20 AM [facility] Blood BLOOD SPECIMEN / Unknown Venipuncture / Unknown 07/04/2022 1:45 AM ATTORNEY LAW CLERK 07/04/2022 1:52 AM ATTORNEY LAW CLERK Artur Mcgraw MD LAB - CHEMISTRY ORD ERABLES Performing Organization Address City/[facility]/ZIP Co de Phone Number [facility] [address] [place] [address], [facility] [phone] * CULTURE URINE (07/04/2022 1:45 AM ATTORNEY LAW CLERK) Culture Urine 10,000-50,000 CFU/mL urogenital heidi JELLY 07/05/2022 8:22 AM ATTORNEY LAW CLERK [facility] MICROBIOLOGY Urine URINE SPECIMEN OBTAINED BY CLEAN CATCH PROCEDURE / Unknown Collection / Unknown 07/04/2022 1:45 AM ATTORNEY LAW CLERK 07/04/2022 1:50 AM ATTORNEY LAW CLERK Randy Diaz MD LAB - MICROBIOLOGY O RDERABLES [facility] MICROBIOLOGY [address] [place] [address], [facility] [phone] * (ABNORMAL) URINALYSIS REFLEX TO MICROSCOPIC NO CULTURE (07/04/2022 1:45 AM ATTORNEY LAW CLERK) Color UA Yellow Straw, Yellow 07/04/2022 1:57 AM [facility] Clarity UA Clear Clear 07/04/2022 1:57 AM [facility] Specific [place] UA 1.010 1.005 - 1.030 07/04/2022 1:57 AM [facility] pH UA 6.0 5.0 - 8.0 pH 07/04/2022 1:57 AM [facility] Protein UA Negative Negative 07/04/2022 1:57 AM [facility] Glucose UA Negative Negative 07/04/2022 1:57 AM [facility] Ketone UA Negative Negative 07/04/2022 1:57 AM [facility] Bilirubin UA Negative Negative 07/04/2022 1:57 AM [facility] Blood UA Negative Negative 07/04/2022 1:57 AM [facility] Nitrite UA Negative Negative 07/04/2022 1:57 AM [facility] Leukocyte Esterase 1+(A) Negative 07/04/2022 1:57 AM [facility] Urobilinogen UA Negative Negative mg/dL 07/04/2022 1:57 AM [facility] RBC UA 3-5 None Seen, 0-2, 3-5 /HPF 07/04/2022 1:57 AM [facility] WBC UA 6-10(A) None Seen, 0-5 /HPF 07/04/2022 1:57 AM [facility] Bacteria UA Trace(A) None /HPF 07/04/2022 1:57 AM [facility] Yeast Budding UA Few(A) None /HPF 07/04/19 1:57 AM [facility] Squamous Epithelial Cells UA 0-2 None Seen, 0-2, 3-5 /HPF 07/04/2022 1:57 AM [facility] Mucus UA 1+ /LPF 07/04/2022 1:57 AM [facility] Urine URINE SPECIMEN OBTAINED BY CLEAN CATCH PROCEDURE / Unknown Collection / Unknown 07/04/2022 1:45 AM ATTORNEY LAW CLERK 07/04/2022 1:49 AM [facility] - 07/04/2022 1:57 AM ATTORNEY LAW CLERK Randy Diaz MD LAB - URINALYSIS ORD ERABLES [facility] [address] [place] [address], [facility] [phone] * TSH REFLEX FREE T4 (07/04/2022 1:45 AM ATTORNEY LAW CLERK) Pathologist [facility] TSH 1.955 0.350 - 4.940 uIU/mL 07/04/2022 2:37 AM ATTORNEY LAW CLERK [facility] Blood BLOOD SPECIMEN / Unknown Venipuncture / Unknown 07/04/2022 1:45 AM ATTORNEY LAW CLERK 07/04/2022 1:52 AM ATTORNEY LAW CLERK Randy Diaz MD LAB - CHEMISTRY MARSHAL MEDEROS [address] [address], [facility] [phone] * VANCOMYCIN LEVEL RANDOM (07/04/2022 1:45 AM ATTORNEY LAW CLERK) Pathologist [facility] Vancomycin Random 22.0 Therapeutic Ranges not established for random specimens ug/mL 07/04/2022 2:20 AM ATTORNEY LAW CLERK [facility] Blood BLOOD SPECIMEN / Unknown Venipuncture / Unknown 07/04/2022 1:45 AM ATTORNEY LAW CLERK 07/04/2022 1:52 AM ATTORNEY LAW CLERK Narrative [facility] - 07/04/2022 2:20 AM ATTORNEY LAW CLERK See institution protocol. Artur Mcgraw MD LAB - CHEMISTRY ORD BRENDA [address] [address], [facility] [phone] * (ABNORMAL) BLOOD GASES ART + COOX PANEL (07/03/2022 5:39 PM ATTORNEY LAW CLERK) Pathologist [facility] pH Arterial 7.39 7.35 - 7.45 pH 07/03/2022 5:46 PM [facility] pO2 Arterial 133(H) 80 - 100 mmHg 07/03/2022 5:46 PM [facility] pCO2 Arterial 44 35 - 45 mmHg 5:46 PM [facility] HCO3 Arterial 27 20 - 30 mmol/l 07/03/2022 5:46 PM [facility] BE Arterial 1.3 -2.0 - 2.0 mmol/L 07/03/2022 5:46 PM [facility] Oxyhemoglobin Arterial 97.5 % 07/03/2022 5:46 PM [facility] Dexoyhemoglobin (HHB) % 0.4 % 07/03/2022 5:46 PM [facility] Methemoglobin 1.2 0.0 - 2.0 % 07/03/2022 5:46 PM [facility] Carboxyhemoglobin 1.0 0.0 - 2.0 % 2022 5:46 PM [facility] O2 Content Arterial 15.2 Interpret within clinical context ml/dL 07/03/2022 5:46 PM [facility] Hemoglobin by COOX 10.9(L) 12.0 - 17.6 g/dL 07/03/2022 5:46 PM [facility] O2 Saturation Arterial 100 90 - 100 % 07/03/2022 5:46 PM [facility] FI O2 Arterial 90.0 % 07/03/2022 5:46 PM [facility] Blood, arterial ARTERIAL BLOOD SPECIMEN / Unknown Arterial Puncture / Unknown 07/03/2022 5:39 PM ATTORNEY LAW CLERK 07/03/2022 5:44 PM ATTORNEY LAW CLERK [facility] - 07/03/2022 5:46 PM [facility] Carboxyhemoglobin Normal Concentration: Non-smokers: 0-2%; Smokers: 0-9%; Toxic: >20% Artur Mcgraw MD LAB - BLOOD GASES O RDERABLES [facility] [address] [place] [address], [facility] [phone] * XR CHEST 1VW PORTABLE (07/03/2022 4:03 PM ATTORNEY LAW CLERK) Anatomical Region Laterality Modality Chest Radiographic Cynthia ging 07/03/2022 4:20 PM ATTORNEY LAW CLERK Narrative 07/03/2022 4:57 PM ATTORNEY LAW CLERK PROCEDURE: ??XR CHEST 1VW PORTABLE, DATE/TIME OF EXAM: ??07/03/2022 4:04 PM, LOCATION ??[facility] INDICATION: R91.8: Pulmonary infiltrate J96.21: Acute on chronic respiratory failure with hypoxia ([facility]/HCC) ADDITIONAL CLINICAL INFORMATION: Ordering Provider Reason For Exam: ??hypoxia COMPARISON: Chest x-ray 07/03/2022 FINDINGS/IMPRESSION: Near complete opacification of the right lung with tracheal shift towards the right, unchanged. Left lung is clear. No pneumothorax identified. The cardiomediastinal silhouette is obscured. Report dictated by Usman Arce MD, (founder and president). Eron Thomason have personally reviewed and interpreted this examination/study. > Interpreting Provider: Eron Payton on 07/03/2022 4:57 PM Procedure Note Eron Payton MD - 07/03/2022 PROCEDURE: XR CHEST 1VW PORTABLE, DATE/TIME OF EXAM: 07/03/2022 4:04 PM, LOCATION [facility] INDICATION: R91.8: Pulmonary infiltrate J96.21: Acute on chronic respiratory failure with hypoxia (CMS/HCC) ADDITIONAL CLINICAL INFORMATION: Ordering Provider Reason For Exam: hypoxia COMPARISON: Chest x-ray 07/03/2022 FINDINGS/IMPRESSION: Near complete opacification of the right lung with tracheal shifttowards the right, unchanged. Left lung is clear. No pneumothorax identified.The cardiomediastinal silhouette is obscured. Report dictated by Usman Arce MD, (founder and president). Eron Thomason have personally reviewed and interpreted this examination/study. > Interpreting Provider: Eron Payton on 07/03/2022 4:57 PM Artur Mcgraw MD DIAGNOSTIC IMAGING ORDERABLES * XR CHEST 1VW PORTABLE (07/03/2022 10:03 AM ATTORNEY LAW CLERK) Anatomical Region Laterality Modality Chest Radiographic Cynthia ging 07/03/2022 10:1 0 AM ATTORNEY LAW CLERK Narrative 07/03/2022 12:19 PM ATTORNEY LAW CLERK PROCEDURE: ??XR CHEST 1VW PORTABLE, DATE/TIME OF EXAM: ??07/03/2022 10:04 AM, LOCATION ??[facility] INDICATION: T17.908S: Aspiration into airway, sequela ADDITIONAL [...] obscured. Report dictated by Usman Arce MD, (founder and president). These findings were discussed with patient's care provider, Dr. Mcgraw, by on 07/03/2022 10:12 AM with read back verification. Eron Thomason have personally reviewed and interpreted this examination/study. > Interpreting Provider: Eron Payton on 07/03/2022 12:19 PM Procedure Note Eron Payton MD - 07/03/2022 PROCEDURE: XR CHEST 1VW PORTABLE, DATE/TIME OF EXAM: 07/03/2022 10:04AM, LOCATION [facility] INDICATION: T17.908S: Aspiration into airway, sequela ADDITIONAL [...] obscured. Report dictated by Usman Arce MD, (founder and president). These findings were discussed with patient's care provider, Dr. Mcgraw, by on 07/03/2022 10:12 AM with read back verification. Eron Thomason have personally reviewed and interpreted this examination/study. > Interpreting Provider: Eron Payton on 07/03/2022 12:19 PM Artur Mcgraw MD DIAGNOSTIC IMAGING ORDERABLES * (ABNORMAL) CBC W AUTO DIFFERENTIAL (07/03/2022 4:05 AM [facility]) WBC 6.9 3.5 - 10.5 10? 3 /uL 07/03/2022 4:29 AM [facility] RBC 3.10(L) 4.30 - 5.70 10? 6 /uL 07/03/2022 4:29 AM [facility] Hemoglobin 9.6(L) 12.0 - 17.6 g/dL 07/03/2022 4:29 AM [facility] Hematocrit 29.6(L) 35.2 - 51.7 % 07/03/2022 4:29 AM [facility] MCV 95.5 80.7 - 98.3 fL 07/03/2022 4:29 AM [facility] MCH 31.0 26.7 - 34.0 pg 07/03/2022 4:29 AM [facility] MCHC 32.4 30.8 - 35.9 g/dL 07/03/2022 4:29 AM [facility] RDW-SD 46.5 36.0 - 50.0 fL 07/03/2022 4:29 AM [facility] RDW-CV 13.5 11.2 - 14.8 % 07/03/2022 4:29 AM [facility] Platelet Count 120(L) 150 - 400 10? 3 /uL 07/03/2022 4:29 AM [facility] MPV 13.3(H) 9.4 - 12.9 fL 07/03/2022 4:29 AM [facility] Immature Platelet Fraction 8.6(H) 1.1 - 6.2 % 07/03/2022 4:29 AM [facility] nRBC Absolute 0.00 0 10? 3 /uL 07/03/2022 4:29 AM [facility] nRBC Auto 0.0 0 /100 WBC 07/03/2022 4:29 AM [facility] Neutrophils % 59.2 35.0 - 70.0 % 07/03/2022 4:29 AM [facility] Lymphocytes % 19.8(L) 20.0 - 43.0 % 07/03/2022 4:29 AM [facility] Monocytes % 17.3(H) 5.0 - 13.0 % 07/03/2022 4:29 AM [facility] Eosinophils % 3.3 0.0 - 6.0 % 07/03/2022 4:29 AM [facility] Basophil % 0.1 0.0 - 2.0 % 07/03/2022 4:29 AM [facility] Neutrophils Absolute 4.06 1.60 - 7.00 10? 3 /uL 07/03/2022 4:29 AM [facility] Lymphocyte Absolute 1.36 1.10 - 3.90 10? 3 /uL 07/03/2022 4:29 AM [facility] Monocytes Absolute 1.19(H) 0.26 - 1.07 10? 3 /uL 07/03/2022 4:29 AM [facility] Eosinophils Absolute 0.23 0.00 - 0.47 10? 3 /uL 07/03/2022 4:29 AM [facility] Basophils Absolute 0.01 0.00 - 0.08 10? 3 /uL 07/03/2022 4:29 AM [facility] Immature Granulocytes % 0.3 0.0 - 1.0 % 07/03/2022 4:29 AM [facility] Immature Granulocytes Absolute 0.02 07/03/2022 4:29 AM [facility] Blood BLOOD SPECIMEN / Unknown Venipuncture / Unknown 07/03/2022 4:05 AM [facility] 07/03/2022 4:18 AM [facility] Artur Mcgraw MD LAB - HEMATOLOGY OR DERABLES [facility] [address] [place] [address], [facility] [phone] * (ABNORMAL) BASIC METABOLIC PANEL (CALCIUM TOTAL) (07/03/2022 4:05 AM [facility]) BUN 32(H) 7 - 26 mg/dL 07/03/2022 5:07 AM [facility] Creatinine 3.16(H) 0.71 - 1.16 mg/dL 07/03/2022 5:07 AM [facility] Sodium 144 136 - 145 mmol/L 07/03/2022 5:07 AM [facility] Potassium 4.7(H) 3.5 - 4.5 mmol/L 07/03/2022 5:07 AM [facility] Chloride 110(H) 98 - 107 mmol/L 07/03/2022 5:07 AM [facility] CO2 27 22 - 29 mmol/L 07/03/2022 5:07 AM [facility] Glucose 86 70 - 115 mg/dL 07/03/2022 5:07 AM [facility] Calcium 9.1 8.4 - 10.2 mg/dL 07/03/2022 5:07 AM [facility] Anion Gap 12 8 - 18 07/03/2022 5:07 AM [facility] BUN/Creatinine Ratio 10 7 - 23 07/03/2022 5:07 AM [facility] Osmolality Calculated 304(H) 270 - 300 mOsm/kg 07/03/2022 5:07 AM [facility] eGFR by CKD-EPI 22(L) >=90 mL/min/1.7 3 m2 07/03/2022 5:07 AM [facility] Blood BLOOD SPECIMEN / Unknown Venipuncture / Unknown 07/03/2022 4:05 AM ATTORNEY LAW CLERK 07/03/2022 4:18 AM [facility] Artur Mcgraw MD LAB - CHEMISTRY ORD ERABLES [facility] [address] [place] [address], [facility] [phone] * VANCOMYCIN LEVEL RANDOM (07/03/2022 4:05 AM [facility]) Vancomycin Random 26.1 Therapeutic Ranges not established for random specimens ug/mL 07/03/2022 4:49 AM [facility] Blood BLOOD SPECIMEN / Unknown Venipuncture / Unknown 07/03/2022 4:05 AM ATTORNEY LAW CLERK 07/03/2022 4:18 AM ATTORNEY LAW CLERK Narrative [facility] - 07/03/2022 4:49 AM ATTORNEY LAW CLERK See institution protocol. Artur Mcgraw MD LAB - CHEMISTRY ORD ERABLES Performing Organization Address [facility]/ZIP Co de Phone Number [facility] [address] [place] [phone], [place] [phone] * CREATININE URINE RANDOM (07/02/2022 11:37 AM ATTORNEY LAW CLERK) Creatinine Urine 26 Not Established mg/dL 07/02/2022 12:07 PM ATTORNEY LAW CLERK [facility] Urine URINE SPECIMEN OBTAINED BY CLEAN CATCH PROCEDURE / Unknown Collection / Unknown 07/02/2022 11:37 AM ATTORNEY LAW CLERK 07/02/2022 11:44 AM ATTORNEY LAW CLERK Artur Mcgraw MD LAB - URINE PAYROLL MANAGER RY ORDERABLES Performing Organization Address [facility]/ZIP Co de Phone Number [address] [address], [place] [phone] * SODIUM URINE RANDOM (07/02/2022 11:37 AM ATTORNEY LAW CLERK) Sodium Urine 40 Not Established mmol/L 07/02/2022 12:07 PM ATTORNEY LAW CLERK [facility] Urine URINE SPECIMEN OBTAINED BY CLEAN CATCH PROCEDURE / Unknown Collection / Unknown 07/02/2022 11:37 AM ATTORNEY LAW CLERK 07/02/2022 11:44 AM ATTORNEY LAW CLERK Artur Mcgraw MD LAB - URINE PAYROLL MANAGER RY ORDERABLES Performing Organization Address [facility]/ZIP Co de Phone Number [address] [address], [place] [phone] * (ABNORMAL) URINALYSIS W/MICROSCOPIC NO CULTURE (07/02/2022 11:37 AM ATTORNEY LAW CLERK) Color UA Yellow Straw, Yellow 07/02/2022 11:56 AM [facility] Clarity UA Clear Clear 07/02/2022 11:56 AM [facility] Specific [place] UA 1.006 1.005 - 1.030 07/02/2022 11:56 AM [facility] pH UA 7.0 5.0 - 8.0 pH 07/02/2022 11:56 AM [facility] Protein UA 1+(A) Negative 07/02/2022 11:56 AM [facility] Glucose UA Negative Negative 07/02/2022 11:56 AM [facility] Ketone UA Negative Negative 07/02/2022 11:56 AM [facility] Bilirubin UA Negative Negative 07/02/2022 11:56 AM [facility] Blood UA Negative Negative 07/02/2022 11:56 AM [facility] Nitrite UA Negative Negative 07/02/2022 11:56 AM [facility] Leukocyte Esterase 3+(A) Negative 07/02/2022 11:56 AM [facility] Urobilinogen UA Negative Negative mg/dL 07/02/2022 11:56 AM [facility] RBC UA 3-5 None Seen, 0-2, 3-5 /HPF 07/02/2022 11:56 AM [facility] WBC UA 6-10(A) None Seen, 0-5 /HPF 07/02/2022 11:56 AM [facility] Bacteria UA Trace(A) None /HPF 07/02/2022 11:56 AM [facility] Squamous Epithelial Cells UA 0-2 None Seen, 0-2, 3-5 /HPF 07/02/2022 11:56 AM [facility] Yeast Budding UA Few(A) None /HPF 07/02/19 11:56 AM [facility] Urine URINE SPECIMEN OBTAINED BY CLEAN CATCH PROCEDURE / Unknown Collection / Unknown 07/02/2022 11:37 AM ATTORNEY LAW CLERK 07/02/2022 11:44 AM [facility] - 07/02/2022 11:56 AM ATTORNEY LAW CLERK Artur Mcgraw MD LAB - URINALYSIS OR DERABLES [facility] [address] [place] [address], [facility] [phone] * XR CHEST 1VW PORTABLE (07/02/2022 10:30 AM ATTORNEY LAW CLERK) Anatomical Region Laterality Modality Chest Radiographic Cynthia ging 07/02/2022 10:5 3 AM ATTORNEY LAW CLERK Narrative 07/02/2022 4:35 PM ATTORNEY LAW CLERK PROCEDURE: ??XR CHEST 1VW PORTABLE, DATE/TIME OF EXAM: ??07/02/2022 10:30 AM, LOCATION ??[facility] INDICATION: R13.12: Dysphagia, oropharyngeal phase ADDITIONAL CLINICAL [...] Report dictated by Akbar Barillas MD, MD (founder and president). Charles Thomason MD have personally reviewed and interpreted this examination/study. > Interpreting Provider: Charles Hare MD on 07/02/2022 4:35 PM Procedure Note Charles Hare MD - 07/02/2022 PROCEDURE: XR CHEST 1VW PORTABLE, DATE/TIME OF EXAM: 07/02/2022 10:30AM, LOCATION [facility] INDICATION: R13.12: Dysphagia, oropharyngeal phase ADDITIONAL CLINICAL [...] Report dictated by Akbar Barillas MD, MD (founder and president). Charles Thomason MD have personally reviewed and interpreted this examination/study. > Interpreting Provider: Charles Hare MD on 07/02/2022 4:35 PM Artur Mcgraw MD DIAGNOSTIC IMAGING ORDERABLES * (ABNORMAL) CBC W AUTO DIFFERENTIAL (07/02/2022 5:31 AM [facility]) WBC 5.7 3.5 - 10.5 10? 3 /uL 07/02/2022 6:12 AM [facility] RBC 3.16(L) 4.30 - 5.70 10? 6 /uL 07/02/2022 6:12 AM [facility] Hemoglobin 9.8(L) 12.0 - 17.6 g/dL 07/02/2022 6:12 AM [facility] Hematocrit 30.2(L) 35.2 - 51.7 % 07/02/2022 6:12 AM [facility] MCV 95.6 80.7 - 98.3 fL 07/02/2022 6:12 AM [facility] MCH 31.0 26.7 - 34.0 pg 07/02/2022 6:12 AM [facility] MCHC 32.5 30.8 - 35.9 g/dL 07/02/2022 6:12 AM [facility] RDW-SD 45.5 36.0 - 50.0 fL 07/02/2022 6:12 AM [facility] RDW-CV 13.1 11.2 - 14.8 % 07/02/2022 6:12 AM [facility] Platelet Count 119(L) 150 - 400 10? 3 /uL 07/02/2022 6:12 AM [facility] MPV 12.8 9.4 - 12.9 fL 07/02/2022 6:12 AM [facility] nRBC Absolute 0.00 0 10? 3 /uL 07/02/2022 6:12 AM [facility] nRBC Auto 0.0 0 /100 WBC 07/02/2022 6:12 AM [facility] Neutrophils % 57.4 35.0 - 70.0 % 07/02/2022 6:12 AM [facility] Lymphocytes % 19.9(L) 20.0 - 43.0 % 07/02/2022 6:12 AM [facility] Monocytes % 17.8(H) 5.0 - 13.0 % 07/02/2022 6:12 AM [facility] Eosinophils % 4.4 0.0 - 6.0 % 07/02/2022 6:12 AM [facility] Basophil % 0.3 0.0 - 2.0 % 07/02/2022 6:12 AM [facility] Neutrophils Absolute 3.29 1.60 - 7.00 10? 3 /uL 07/02/2022 6:12 AM [facility] Lymphocyte Absolute 1.14 1.10 - 3.90 10? 3 /uL 07/02/2022 6:12 AM [facility] Monocytes Absolute 1.02 0.26 - 1.07 10? 3 /uL 07/02/2022 6:12 AM [facility] Eosinophils Absolute 0.25 0.00 - 0.47 10? 3 /uL 07/02/2022 6:12 AM [facility] Basophils Absolute 0.02 0.00 - 0.08 10? 3 /uL 07/02/2022 6:12 AM [facility] Immature Granulocytes % 0.2 0.0 - 1.0 % 07/02/2022 6:12 AM [facility] Immature Granulocytes Absolute 0.01 07/02/2022 6:12 AM [facility] Blood BLOOD SPECIMEN / Unknown Lab Venipuncture / Unknown 07/02/2022 5:31 AM ATTORNEY LAW CLERK 07/02/2022 6:02 AM [facility] Artur Mcgraw MD LAB - HEMATOLOGY OR DERABLES Performing Organization Address [facility]/State/[facility] Co de Phone Number [facility] [address] [place] [address] [phone] * (ABNORMAL) BASIC METABOLIC PANEL (CALCIUM TOTAL) (07/02/2022 5:31 AM [facility]) BUN 19 7 - 26 mg/dL 07/02/2022 6:39 AM [facility] Creatinine 1.99(H) 0.71 - 1.16 mg/dL 07/02/2022 6:39 AM [facility] Sodium 144 136 - 145 mmol/L 07/02/2022 6:39 AM [facility] Potassium 4.3 3.5 - 4.5 mmol/L 07/02/2022 6:39 AM [facility] Chloride 111(H) 98 - 107 mmol/L 07/02/2022 6:39 AM [facility] CO2 24 22 - 29 mmol/L 07/02/2022 6:39 AM [facility] Glucose 113 70 - 115 mg/dL 07/02/2022 6:39 AM [facility] Calcium 9.1 8.4 - 10.2 mg/dL 07/02/2022 6:39 AM [facility] Anion Gap 13 8 - 18 07/02/2022 6:39 AM [facility] BUN/Creatinine Ratio 10 7 - 23 07/02/2022 6:39 AM [facility] Osmolality Calculated 301(H) 270 - 300 mOsm/kg 07/02/2022 6:39 AM [facility] eGFR by CKD-EPI 37(L) >=90 mL/min/1.7 3 m2 07/02/2022 6:39 AM [facility] Blood BLOOD SPECIMEN / Unknown Lab Venipuncture / Unknown 07/02/2022 5:31 AM ATTORNEY LAW CLERK 07/02/2022 6:02 AM ATTORNEY LAW CLERK Artur Mcgraw MD LAB - CHEMISTRY ORD ERABLES Performing Organization Address City/[facility] Co de Phone Number [facility] [address] [place] [address], [facility] [phone] * VANCOMYCIN LEVEL RANDOM (07/02/2022 5:31 AM ATTORNEY LAW CLERK) Vancomycin Random 32.1 Therapeutic Ranges not established for random specimens ug/mL 07/02/2022 6:31 AM [facility] Blood BLOOD SPECIMEN / Unknown Lab Venipuncture / Unknown 07/02/2022 5:31 AM [employer]ORNEY [employer]ERK 07/02/2022 6:02 AM ATTORNEY LAW CLERK Narrative [facility] - 07/02/2022 6:31 AM [employer]ORNEY [employer] CLERK See institution protocol. Artur Mcgraw MD LAB - CHEMISTRY ORD ERABLES [facility] [address] [place] [address], [facility] [phone] * (ABNORMAL) VANCOMYCIN LEVEL TROUGH (07/01/2022 4:34 PM ATTORNEY LAW CLERK) [facility] Vancomycin Trough 22.7(H) 10.0 - 20.0 ug/mL 07/01/2022 5:35 PM [facility] Blood BLOOD SPECIMEN / Unknown Lab Venipuncture / Unknown 07/01/2022 4:34 PM [employer] 07/01/2022 5:11 PM [employer]ORNEY LAW CLERK Narrative [facility] - 07/01/2022 5:35 PM ATTORNEY LAW CLERK See institution protocol. Artur Mcgraw MD LAB - CHEMISTRY ORD [employer] Performing Organization Address [facility]/ZIP Co de Phone Number [address] [address], [facility] [phone] * (ABNORMAL) CBC W AUTO DIFFERENTIAL (07/01/2022 4:34 PM ATTORNEY LAW CLERK) [facility] WBC 7.0 3.5 - 10.5 10? 3 /uL 07/01/2022 5:33 PM [facility] RBC 3.06(L) 4.30 - 5.70 10? 6 /uL 07/01/2022 5:33 PM [facility] Hemoglobin 9.4(L) 12.0 - 17.6 g/dL 07/01/2022 5:33 PM [facility] Hematocrit 28.9(L) 35.2 - 51.7 % 07/01/2022 5:33 PM [facility] MCV 94.4 80.7 - 98.3 fL 07/01/2022 5:33 PM [facility] MCH 30.7 26.7 - 34.0 pg 07/01/2022 5:33 PM [facility] MCHC 32.5 30.8 - 35.9 g/dL 07/01/2022 5:33 PM [facility] RDW-SD 45.1 36.0 - 50.0 fL 07/01/2022 5:33 PM [facility] RDW-CV 13.2 11.2 - 14.8 % 07/01/2022 5:33 PM [facility] Platelet Count 108(L) 150 - 400 10? 3 /uL 07/01/2022 5:33 PM [facility] MPV 13.5(H) 9.4 - 12.9 fL 07/01/2022 5:33 PM [facility] Immature Platelet Fraction 9.4(H) 1.1 - 6.2 % 07/01/2022 5:33 PM [facility] nRBC Absolute 0.00 0 10? 3 /uL 07/01/2022 5:33 PM [facility] nRBC Auto 0.0 0 /100 WBC 07/01/2022 5:33 PM [facility] Neutrophils % 59.5 35.0 - 70.0 % 07/01/2022 5:33 PM [facility] Lymphocytes % 19.8(L) 20.0 - 43.0 % 07/01/2022 5:33 PM [facility] Monocytes % 15.5(H) 5.0 - 13.0 % 07/01/2022 5:33 PM [facility] Eosinophils % 4.6 0.0 - 6.0 % 07/01/2022 5:33 PM [facility] Basophil % 0.3 0.0 - 2.0 % 07/01/2022 5:33 PM [facility] Neutrophils Absolute 4.19 1.60 - 7.00 10? 3 /uL 07/01/2022 5:33 PM [facility] Lymphocyte Absolute 1.39 1.10 - 3.90 10? 3 /uL 07/01/2022 5:33 PM [facility] Monocytes Absolute 1.09(H) 0.26 - 1.07 10? 3 /uL 07/01/2022 5:33 PM [facility] Eosinophils Absolute 0.32 0.00 - 0.47 10? 3 /uL 07/01/2022 5:33 PM [facility] Basophils Absolute 0.02 0.00 - 0.08 10? 3 /uL 07/01/2022 5:33 PM [facility] Immature Granulocytes % 0.3 0.0 - 1.0 % 07/01/2022 5:33 PM [facility] Immature Granulocytes Absolute 0.02 07/01/2022 5:33 PM [facility] Blood BLOOD SPECIMEN / Unknown Lab Venipuncture / Unknown 07/01/2022 4:34 PM ATTORNEY LAW CLERK 07/01/2022 5:11 PM ATTORNEY LAW CLERK Artur Mcgraw MD LAB - HEMATOLOGY OR DERABLES Performing Organization Address [facility]/ZIP Co de Phone Number [facility] [address] [place] [address], [facility] [phone] * (ABNORMAL) BASIC METABOLIC PANEL (CALCIUM TOTAL) (07/01/2022 4:34 PM ATTORNEY LAW CLERK) BUN 12 7 - 26 mg/dL 07/01/2022 5:36 PM [facility] Creatinine 1.05 0.71 - 1.16 mg/dL 07/01/2022 5:36 PM [facility] Sodium 143 136 - 145 mmol/L 07/01/2022 5:36 PM [facility] Potassium 3.9 3.5 - 4.5 mmol/L 07/01/2022 5:36 PM [facility] Chloride 109(H) 98 - 107 mmol/L 07/01/2022 5:36 PM [facility] CO2 26 22 - 29 mmol/L 07/01/2022 5:36 PM [facility] Glucose 108 70 - 115 mg/dL 07/01/2022 5:36 PM [facility] Calcium 9.0 8.4 - 10.2 mg/dL 07/01/2022 5:36 PM [facility] Anion Gap 12 8 - 18 07/01/2022 5:36 PM [facility] BUN/Creatinine Ratio 11 7 - 23 07/01/2022 5:36 PM [facility] Osmolality Calculated 296 270 - 300 mOsm/kg 07/01/2022 5:36 PM [facility] eGFR by CKD-EPI 81(L) >=90 mL/min/1.7 3 m2 07/01/2022 5:36 PM [facility] Blood BLOOD SPECIMEN / Unknown Lab Venipuncture / Unknown 07/01/2022 4:34 PM ATTORNEY LAW CLERK 07/01/2022 5:11 PM ATTORNEY LAW CLERK Artur Mcgraw MD LAB - CHEMISTRY ORD ERABLES Performing Organization Address City/[facility]/ZIP Co de Phone Number [facility] [address] [place] [address], [place] [phone] * CK BLOOD (07/01/2022 4:34 PM ATTORNEY LAW CLERK) CK Total 42 30 - 200 U/L 07/01/2022 5:35 PM ATTORNEY LAW CLERK [facility] Blood BLOOD SPECIMEN / Unknown Lab Venipuncture / Unknown 07/01/2022 4:34 PM ATTORNEY LAW CLERK 07/01/2022 5:11 PM ATTORNEY LAW CLERK Artur Mcgraw MD LAB - CHEMISTRY ORD ERABLES Performing Organization Address City/[facility]/ZIP Co de Phone Number [address] [address], [place] [phone] * US PELVIS LIMITED (07/01/2022 3:00 PM ATTORNEY LAW CLERK) Anatomical Region Laterality Modality Pelvis Ultrasound 07/01/2022 3:19 PM ATTORNEY LAW CLERK Narrative 07/02/2022 8:36 AM ATTORNEY LAW CLERK PROCEDURE: ??US PELVIS LIMITED, DATE/TIME OF EXAM: ??07/01/2022 2:23 PM, LOCATION ??[facility] INDICATION: Z86.73: History of CVA (cerebrovascular [...] 06/28/2022. Report dictated by Ashu Welch M.D. (founder and president) Rachel Thomason MD have personally reviewed and interpreted this examination/study. > Interpreting Provider: Rachel Phillips MD on 07/02/2022 8:36 AM Procedure Note Rachel Phillips MD - 07/02/2022 PROCEDURE: US PELVIS LIMITED, DATE/TIME OF EXAM: 07/01/2022 2:23 PM, LOCATION [facility] INDICATION: Z86.73: History of CVA (cerebrovascular [...] 06/28/2022. Report dictated by Ashu Welch M.D. (founder and president) Rachel Thomason MD have personally reviewed and interpreted this examination/study. > Interpreting Provider: Rachel Phillips MD on 07/02/2022 8:36 AM Artur Mcgraw MD US ORDERABLES * (ABNORMAL) GLUCOSE - POINT OF CARE (07/01/2022 5:07 AM ATTORNEY LAW CLERK) Glucose WB/POC 125(H) 70 - 115 mg/dL 07/01/2022 5:12 AM ATTORNEY LAW CLERK [facility] Specimen Type Cap Fingerstick 2022 5:12 AM ATTORNEY LAW CLERK [facility] Blood BLOOD SPECIMEN / Unknown 07/01/2022 5:07 AM ATTORNEY LAW CLERK 07/01/2022 5:12 AM ATTORNEY LAW CLERK Artur Mcgraw MD LAB - POINT OF CARE ORDERABLES [facility] [address] [facility] [place] [address], [facility] [phone] * CULTURE BLOOD FUNGUS (06/30/2022 8:45 PM ATTORNEY LAW CLERK) Pathologist [facility] Culture No fungus isolated JELLY 08/09/2022 2:06 PM CDT [facility] Blood PERIPHERAL BLOOD / Unknown Lab Venipuncture / Unknown 06/30/2022 8:45 PM ATTORNEY LAW CLERK 06/30/2022 9:20 PM ATTORNEY LAW CLERK Artur Mcgraw MD LAB - MICROBIOLOGY ORDERABLES [facility] [address] [place] [address], [facility] [phone] * RESPIRATORY PANEL WITH SARS-COV-2 BY PCR (STL) (06/30/2022 7:52 PM ATTORNEY LAW CLERK) Adenovirus PCR Not detected Not detected 07/01/2022 12:14 AM ATTORNEY LAW CLERK [facility] Coronavirus 229E PCR Not detected Not detected 07/01/2022 12:14 AM ATTORNEY LAW CLERK [facility] Coronavirus HKU1 PCR Not detected Not detected 07/01/2022 12:14 AM ATTORNEY LAW CLERK [facility] Coronavirus NL63 PCR Not detected Not detected 07/01/2022 12:14 AM ATTORNEY LAW CLERK [facility] Coronavirus OC43 PCR Not detected Not detected 07/01/2022 12:14 AM ATTORNEY LAW CLERK [facility] COVID-19 PCR Not detected Not detected 07/01/2022 12:14 AM ATTORNEY LAW CLERK [facility] Human Metapneumovirus PCR Not detected Not detected 07/01/2022 12:14 AM ATTORNEY LAW CLERK [facility] Human Rhinovirus/Enterov irus PCR Not detected Not detected 07/01/2022 12:14 AM ATTORNEY LAW CLERK [facility] Influenza A PCR Not detected Not detected 07/01/2022 12:14 AM ATTORNEY LAW CLERK [facility] Influenza B PCR Not detected Not detected 07/01/2022 12:14 AM ATTORNEY LAW CLERK [facility] Parainfluenza Virus 1 PCR Not detected Not detected 07/01/2022 12:14 AM ATTORNEY LAW CLERK [facility] Parainfluenza Virus 2 PCR Not detected Not detected 07/01/2022 12:14 AM ATTORNEY LAW CLERK [facility] Parainfluenza Virus 3 PCR Not detected Not detected 07/01/2022 12:14 AM ATTORNEY LAW CLERK [facility] Parainfluenza Virus 4 PCR Not detected Not detected 07/01/2022 12:14 AM ATTORNEY LAW CLERK [facility] Respiratory Syncytial Virus PCR Not detected Not detected 07/01/2022 12:14 AM ATTORNEY LAW CLERK [facility] Bordetella parapertussis PCR Not detected Not detected 07/01/2022 12:14 AM ATTORNEY LAW CLERK [facility] Bordetella pertussis PCR Not detected Not detected 07/01/2022 12:14 AM ATTORNEY LAW CLERK [facility] Chlamydia pneumoniae PCR Not detected Not detected 07/01/2022 12:14 AM ATTORNEY LAW CLERK [facility] Mycoplasma pneumoniae PCR Not detected Not detected 07/01/2022 12:14 AM ATTORNEY LAW CLERK [facility] Microbiology SPECIMEN FROM NASOPHARYNGEAL STRUCTURE / Unknown Collection / Unknown 06/30/2022 7:52 PM ATTORNEY LAW CLERK 06/30/2022 7:55 PM ATTORNEY LAW CLERK Narrative [facility] - 07/01/2022 12:14 AM ATTORNEY LAW CLERK This nucleic amplification assay has received FDA authorization via the [employer]. Artur Mcgraw MD LAB - MICROBIOLOGY ORDERABLES [facility] [address] [place] [phone] * CULTURE BLOOD (06/30/2022 4:25 PM ATTORNEY LAW CLERK) Culture No growth day 5 JELLY 07/05/2022 7:01 PM ATTORNEY LAW CLERK [facility] Blood PERIPHERAL BLOOD / Unknown Lab Venipuncture / Unknown 06/30/2022 4:25 PM ATTORNEY LAW CLERK 06/30/2022 5:13 PM ATTORNEY LAW CLERK Artur Mcgraw MD LAB - MICROBIOLOGY ORDERABLES [facility] [address] [place] [address], [facility] [phone] * CULTURE BLOOD (06/30/2022 4:11 PM ATTORNEY LAW CLERK) Culture No growth day 5 JELLY 07/05/2022 7:01 PM ATTORNEY LAW CLERK [facility] Blood PERIPHERAL BLOOD / Unknown Lab Venipuncture / Unknown 06/30/2022 4:11 PM ATTORNEY LAW CLERK 06/30/2022 5:12 PM ATTORNEY LAW CLERK Artur Mcgraw MD LAB - MICROBIOLOGY ORDERABLES [facility] [address] [place] [address], [facility] [phone] * VAS RIGHT VENOUS DUPLEX UE (06/30/2022 3:22 PM ATTORNEY LAW CLERK) Anatomical Region Laterality Modality Upper Extremity Intravascular Ul trasound 06/30/2022 2:44 PM ATTORNEY LAW CLERK Narrative Procedure Note Shane Doyle MD - 06/30/2022 Artur Mcgraw MD VASCULAR LAB ORDERA BLES * CARDIAC EKG ORDER (06/30/2022 10:43 AM ATTORNEY LAW CLERK) Narrative 06/30/2022 10:43 AM ATTORNEY LAW CLERK Ordered by an unspecified provider. Scanned Document CARDIAC SERVICES ORD ERABLES * (ABNORMAL) HEPATIC FUNCTION PANEL (06/30/2022 10:39 AM ATTORNEY LAW CLERK) Pathologist [facility] Protein Total 6.2 6.0 - 8.3 g/dL 023 1:57 PM [facility] Albumin 2.2(L) 3.4 - 5.0 g/dL 06/30/2022 1:57 PM [facility] Bilirubin Total 0.3 0.2 - 1.2 mg/dL 05/2022 1:57 PM [facility] Bilirubin Conjugated 0.2 0.1 - 0.5 mg/dL 06/30/2022 1:57 PM [facility] Bilirubin Unconjugated 0.1 Unconjugated Bilirubin is a calculated value: Reference ranges have not been established. mg/dL 06/30/2022 1:57 PM [facility] Alkaline Phosphatase 65 40 - 150 U/L 06/30/2022 1:57 PM [facility] ALT 5 5 - 55 U/L 06/30/2022 1:57 PM [facility] AST 13 5 - 34 U/L 06/30/2022 1:57 PM [facility] Albumin/Globulin Ratio 0.6(L) 1.1 - 2.3 06/30/2022 1:57 PM [facility] Blood BLOOD SPECIMEN / Unknown Lab Venipuncture / Unknown 06/30/2022 10:39 AM ATTORNEY LAW CLERK 06/30/2022 10:45 AM ATTORNEY LAW CLERK Artur Mcgraw MD LAB - CHEMISTRY ORD ERABLES [facility] [address] [place] [address], [facility] [phone] * (ABNORMAL) CBC W/O DIFFERENTIAL (06/30/2022 10:39 AM [facility]) WBC 10.7(H) 3.5 - 10.5 10? 3 /uL 06/30/2022 11:05 AM [facility] RBC 3.66(L) 4.30 - 5.70 10? 6 /uL 06/30/2022 11:05 AM [facility] Hemoglobin 11.4(L) 12.0 - 17.6 g/dL 06/30/2022 11:05 AM [facility] Hematocrit 34.0(L) 35.2 - 51.7 % 06/30/2022 11:05 AM [facility] MCV 92.9 80.7 - 98.3 fL 06/30/2022 11:05 AM [facility] MCH 31.1 26.7 - 34.0 pg 06/30/2022 11:05 AM [facility] MCHC 33.5 30.8 - 35.9 g/dL 06/30/2022 11:05 AM [facility] RDW-SD 43.9 36.0 - 50.0 fL 06/30/2022 11:05 AM [facility] RDW-CV 12.9 11.2 - 14.8 % 06/30/2022 11:05 AM [facility] Platelet Count 128(L) 150 - 400 10? 3 /uL 06/30/2022 11:05 AM [facility] MPV 06/30/2022 11:05 AM [facility] Comment:Unable to Report Immature Platelet Fraction 11.7(H) 1.1 - 6.2 % 06/30/2022 11:05 AM [facility] nRBC Absolute 0.00 0 10? 3 /uL 06/30/2022 11:05 AM [facility] nRBC Auto 0.0 0 /100 WBC 06/30/2022 11:05 AM [facility] Blood BLOOD SPECIMEN / Unknown Lab Venipuncture / Unknown 06/30/2022 10:39 AM ATTORNEY LAW CLERK 06/30/2022 10:45 AM ATTORNEY LAW CLERK Artur Mcgraw MD LAB - HEMATOLOGY OR DERABLES Performing Organization Address [facility] Co de Phone Number [address] [phone] [phone] * (ABNORMAL) BASIC METABOLIC PANEL (CALCIUM TOTAL) (06/30/2022 10:39 AM ATTORNEY LAW CLERK) BUN 7 7 - 26 mg/dL 06/30/2022 11:19 AM [facility] Creatinine 0.58(L) 0.71 - 1.16 mg/dL 06/30/2022 11:19 AM [facility] Sodium 140 136 - 145 mmol/L 06/30/2022 11:19 AM [facility] Potassium 4.0 3.5 - 4.5 mmol/L 06/30/2022 11:19 AM [facility] Chloride 107 98 - 107 mmol/L 06/30/2022 11:19 AM [facility] CO2 24 22 - 29 mmol/L 06/30/2022 11:19 AM [facility] Glucose 115 70 - 115 mg/dL 06/30/2022 11:19 AM [facility] Calcium 9.5 8.4 - 10.2 mg/dL 06/30/2022 11:19 AM [facility] Anion Gap 13 8 - 18 06/30/2022 11:19 AM [facility] BUN/Creatinine Ratio 12 7 - 23 06/30/2022 11:19 AM [facility] Osmolality Calculated 289 270 - 300 mOsm/kg 06/30/2022 11:19 AM [facility] eGFR by CKD-EPI >90 >=90 mL/min/1.7 3 m2 06/30/2022 11:19 AM [facility] Blood BLOOD SPECIMEN / Unknown Lab Venipuncture / Unknown 06/30/2022 10:39 AM ATTORNEY LAW CLERK 06/30/2022 10:45 AM ATTORNEY LAW CLERK Artur Mcgraw MD LAB - CHEMISTRY ORD ERABLES [address] [address], [place] [phone] * (ABNORMAL) VANCOMYCIN LEVEL TROUGH (06/30/2022 10:39 AM ATTORNEY LAW CLERK) Vancomycin Trough 25.2(HH) 10.0 - 20.0 ug/mL 06/30/2022 11:18 AM ATTORNEY LAW CLERK [facility] Blood BLOOD SPECIMEN / Unknown Lab Venipuncture / Unknown 06/30/2022 10:39 AM ATTORNEY LAW CLERK 06/30/2022 10:45 AM ATTORNEY LAW CLERK Narrative [facility] - 06/30/2022 11:18 AM ATTORNEY LAW CLERK See institution protocol. Artur Mcgraw MD LAB - CHEMISTRY ORD ERABLES [facility] [address] [place] [address], [place] [phone] * (ABNORMAL) VANCOMYCIN LEVEL TROUGH (06/30/2022 7:07 AM ATTORNEY LAW CLERK) Vancomycin Trough 5.3(L) 10.0 - 20.0 ug/mL 06/30/2022 7:46 AM ATTORNEY LAW CLERK [facility] Blood BLOOD SPECIMEN / Unknown Lab Venipuncture / Unknown 06/30/2022 7:07 AM ATTORNEY LAW CLERK 06/30/2022 7:16 AM ATTORNEY LAW CLERK Narrative [facility] - 06/30/2022 7:46 AM ATTORNEY LAW CLERK See institution protocol. Bhavesh Easley MD LAB - CHEMISTRY [facility] Performing Organization Address City/[facility]/ZIP Co de Phone Number [facility] [address] [place] [address], [place] [phone] * EKG 12-LEAD (06/30/2022 3:51 AM ATTORNEY LAW CLERK) Ventricular Rate 125 BPM [facility] Atrial Rate 125 BPM [facility] P-R Interval 148 ms [facility] QRS Duration ms 76 ms [facility] Q-T Interval ms 286 ms [facility] QTC Calculation (Bezet) 412 ms [facility] Calculated P [place] 65 degrees SL MUSE Calculated R [place] 2 degrees [facility] M[facility] Calculated T [place] 82 degrees [facility] Interpretation EKG SINUS TACHYCARDIA WITH OCCASIONAL PREMATURE VENTRICULAR COMPLEXES OTHERWISE NORMAL ECG WHEN COMPARED WITH ECG OF 27-JUN-2022 22:40, MANUAL COMPARISON REQUIRED, DATA IS UNCONFIRMED Confirmed by SHARDA LANDIS MD ([id number]) on 06/30/2022 1:15:51 PM [facility] 06/30/2022 3:51 AM ATTORNEY LAW CLERK 06/30/2022 1:15 PM ATTORNEY LAW CLERK Yasmani Vigil MD ECG ORDERABLES Performing Organization Address [facility] Co de Phone Number [facility] * (ABNORMAL) CULTURE MRSA (06/29/2022 12:42 PM ATTORNEY LAW CLERK) Culture Growth of Staphylococcus aureus methicillin-resist ant (MRSA)(A) 06/30/2022 9:39 PM ATTORNEY LAW CLERK [facility] Microbiology SPECIMEN FROM NASAL FOSSAE / Unknown Collection / Unknown 06/29/2022 12:42 PM ATTORNEY LAW CLERK 06/29/2022 12:50 PM ATTORNEY LAW CLERK Narrative [facility] - 06/30/2022 9:39 PM ATTORNEY LAW CLERK Methicillin-resistant Staphylococci (MRSA) are resistant to all currently available beta-lactam antibiotics with the exception of the newer cephalosporins with anti-MRSA activity. Contact precautions required. Artur Mcgraw MD LAB - MICROBIOLOGY ORDERABLES [facility] [address] [place] [address], [facility] [phone] * (ABNORMAL) BASIC METABOLIC PANEL (CALCIUM TOTAL) (06/29/2022 7:09 AM ATTORNEY LAW CLERK) BUN 11 7 - 26 mg/dL 06/29/2022 7:46 AM [facility] Creatinine 0.56(L) 0.71 - 1.16 mg/dL 06/29/2022 7:46 AM [facility] Sodium 140 136 - 145 mmol/L 06/29/2022 7:46 AM [facility] Potassium 4.4 3.5 - 4.5 mmol/L 06/29/2022 7:46 AM [facility] Chloride 106 98 - 107 mmol/L 06/29/2022 7:46 AM [facility] CO2 26 22 - 29 mmol/L 06/29/2022 7:46 AM [facility] Glucose 102 70 - 115 mg/dL 06/29/2022 7:46 AM [facility] Calcium 9.5 8.4 - 10.2 mg/dL 06/29/2022 7:46 AM [facility] Anion Gap 12 8 - 18 06/29/2022 7:46 AM [facility] BUN/Creatinine Ratio 20 7 - 23 06/29/2022 7:46 AM [facility] Osmolality Calculated 290 270 - 300 mOsm/kg 06/29/2022 7:46 AM [facility] eGFR by CKD-EPI >90 >=90 mL/min/1.7 3 m2 06/29/2022 7:46 AM [facility] Blood BLOOD SPECIMEN / Unknown Lab Venipuncture / Unknown 06/29/2022 7:09 AM ATTORNEY LAW CLERK 06/29/2022 7:18 AM [facility] Bhavesh Easley MD LAB - CHEMISTRY [facility] [address] [place] [address], [place] [phone] * (ABNORMAL) CBC W/O DIFFERENTIAL (06/29/2022 7:09 AM [facility]) WBC 11.1(H) 3.5 - 10.5 10? 3 /uL 06/29/2022 7:27 AM [facility] RBC 3.40(L) 4.30 - 5.70 10? 6 /uL 06/29/2022 7:27 AM [facility] Hemoglobin 10.6(L) 12.0 - 17.6 g/dL 06/29/2022 7:27 AM [facility] Hematocrit 32.4(L) 35.2 - 51.7 % 06/29/2022 7:27 AM [facility] MCV 95.3 80.7 - 98.3 fL 06/29/2022 7:27 AM [facility] MCH 31.2 26.7 - 34.0 pg 06/29/2022 7:27 AM [facility] MCHC 32.7 30.8 - 35.9 g/dL 06/29/2022 7:27 AM [facility] RDW-SD 44.7 36.0 - 50.0 fL 06/29/2022 7:27 AM [facility] RDW-CV 13.1 11.2 - 14.8 % 06/29/2022 7:27 AM [facility] Platelet Count 142(L) 150 - 400 10? 3 /uL 06/29/2022 7:27 AM [facility] MPV 12.7 9.4 - 12.9 fL 06/29/2022 7:27 AM [facility] nRBC Absolute 0.00 0 10? 3 /uL 06/29/2022 7:27 AM [facility] nRBC Auto 0.0 0 /100 WBC 06/29/2022 7:27 AM [facility] Blood BLOOD SPECIMEN / Unknown Lab Venipuncture / Unknown 06/29/2022 7:09 AM ATTORNEY LAW CLERK 06/29/2022 7:19 AM [facility] Bhavesh Easley MD LAB - HEMATOLOGY ORD ERABLES [facility] [address] [place], [place] [phone], [facility] [phone] * (ABNORMAL) PROCALCITONIN LEVEL (06/28/2022 5:30 PM ATTORNEY LAW CLERK) PROCALCITONIN 0.30(H) <=0.10 ng/mL 06/28/2022 6:36 PM ATTORNEY LAW CLERK [facility] Blood BLOOD SPECIMEN / Unknown Venipuncture / Unknown 06/28/2022 5:30 PM ATTORNEY LAW CLERK 06/28/2022 5:34 PM ATTORNEY LAW CLERK Narrative [facility] - 06/28/2022 6:36 PM ATTORNEY LAW CLERK The change in procalcitonin (PCT) concentration over [...] Change in Procalcitonin Calculator is available at [email or web address]-[email or web address] ?? If clinical picture has not improved and PCT remains high, reevaluate and consider treatment failure or other causes. Yasmani Vigil MD LAB - CHEMISTRY [facility] [address] [address], [facility] [phone] * LACTIC ACID BLOOD (06/28/2022 11:08 AM ATTORNEY LAW CLERK) Lactic Acid-Stat 2.0 <=2.0 mmol/L 06/28/2022 12:06 PM ATTORNEY LAW CLERK [facility] Blood BLOOD SPECIMEN / Unknown Venipuncture / Unknown 06/28/2022 11:08 AM ATTORNEY LAW CLERK 06/28/2022 11:44 AM ATTORNEY LAW CLERK Bhavesh Easley MD LAB - CHEMISTRY [facility] Performing Organization Address City/[facility]/ZIP Co de Phone Number [address] [address], [facility] [phone] * (ABNORMAL) LACTIC ACID BLOOD (06/28/2022 6:31 AM ATTORNEY LAW CLERK) Lactic Acid-Stat 2.5(H) <=2.0 mmol/L 06/28/2022 6:56 AM ATTORNEY LAW CLERK [facility] Blood BLOOD SPECIMEN / Unknown Venipuncture / Unknown 06/28/2022 6:31 AM ATTORNEY LAW CLERK 06/28/2022 6:32 AM ATTORNEY LAW CLERK Yasmani Vigil MD LAB - CHEMISTRY [facility] Performing Organization Address [facility]/ZIP Co de Phone Number [address] [address], [facility] [phone] * LEGIONELLA ANTIGEN URINE (06/28/2022 3:48 AM ATTORNEY LAW CLERK) Legionella Antigen Urine Negative Negative 06/28/2022 10:05 AM ATTORNEY LAW CLERK [facility] Urine URINE / Unknown Collection / Unknown 06/28/2022 3:48 AM ATTORNEY LAW CLERK 06/28/2022 3:52 AM ATTORNEY LAW CLERK Narrative [facility] - 06/28/2022 10:05 AM ATTORNEY LAW CLERK This assay detects Legionella pneumophila serogroup one (1) antigen. A negative test result does not rule out the possibility of Legionella infection due to other serogroups or species of Legionella. A positive result may indicate a recent or remote infection with serogroup 1. Yasmani Vigil MD LAB - MICROBIOLOGY O [place] [facility] [address] [place], [place] [address], [facility] [phone] * (ABNORMAL) URINALYSIS REFLEX TO MICROSCOPIC NO CULTURE (06/28/2022 3:48 AM ATTORNEY LAW CLERK) Color UA Yellow Straw, Yellow 06/28/2022 4:07 AM [facility] Clarity UA Clear Clear 06/28/2022 4:07 AM [facility] Specific [place] UA 1.015 1.005 - 1.030 06/28/2022 4:07 AM [facility] pH UA 8.5(H) 5.0 - 8.0 pH 06/28/2022 4:07 AM [facility] Protein UA Negative Negative 06/28/2022 4:07 AM [facility] Glucose UA Negative Negative 06/28/2022 4:07 AM [facility] Ketone UA Negative Negative 06/28/2022 4:07 AM [facility] Bilirubin UA Negative Negative 06/28/2022 4:07 AM [facility] Blood UA Negative Negative 06/28/2022 4:07 AM [facility] Nitrite UA Negative Negative 06/28/2022 4:07 AM [facility] Leukocyte Esterase Negative Negative 06/28/2022 4:07 AM [facility] Urobilinogen UA Negative Negative mg/dL 06/28/2022 4:07 AM [facility] RBC UA 0-2 None Seen, 0-2, 3-5 /HPF 06/28/2022 4:07 AM [facility] WBC UA 0-5 None Seen, 0-5 /HPF 06/28/2022 4:07 AM [facility] Squamous Epithelial Cells UA 0-2 None Seen, 0-2, 3-5 /HPF 06/28/2022 4:07 AM [facility] Urine URINE SPECIMEN OBTAINED BY CLEAN CATCH PROCEDURE / Unknown Collection / Unknown 06/28/2022 3:48 AM [employer] 06/28/2022 3:52 AM ATTORNEY LAW CLERK Narrative [facility] - 06/28/2022 4:07 AM ATTORNEY LAW CLERK Arthur Marinelli MD LAB - URINALYSIS OR DERABLES [facility] [address] [place] [id number], [place] [phone] * LACTIC ACID REPEAT REFLEX (06/28/2022 1:41 AM ATTORNEY LAW CLERK) Lactic Acid Repeat Reflex Order LACTIC ACID REPEAT HAS BEEN ORDERED 06/28/2022 4:03 AM ATTORNEY LAW CLERK [facility] Blood BLOOD SPECIMEN / Unknown Venipuncture / Unknown 06/28/2022 1:41 AM ATTORNEY LAW CLERK 06/28/2022 2:05 AM ATTORNEY LAW CLERK Arthur Marinelli MD LAB - CHEMISTRY ORD ERABLES Performing Organization Address [facility]/ZIP Co de Phone Number [address] [address], [place] [phone] * (ABNORMAL) LACTIC ACID BLOOD REFLEX TO REPEAT (06/28/2022 1:41 AM ATTORNEY LAW CLERK) Lactic Acid-Stat 2.9(H) <=2.0 mmol/L 06/28/2022 2:05 AM ATTORNEY LAW CLERK [facility] Blood BLOOD SPECIMEN / Unknown Venipuncture / Unknown 06/28/2022 1:41 AM ATTORNEY LAW CLERK 06/28/2022 1:45 AM ATTORNEY LAW CLERK Arthur Marinelli MD LAB - CHEMISTRY ORD ERABLES [address] [address], [place] [phone] * TROPONIN I (06/28/2022 1:41 AM ATTORNEY LAW CLERK) Troponin I <0.010 <0.032 ng/mL 06/28/2022 2:16 AM ATTORNEY LAW CLERK [facility] Blood BLOOD SPECIMEN / Unknown Venipuncture / Unknown 06/28/2022 1:41 AM ATTORNEY LAW CLERK 06/28/2022 1:46 AM ATTORNEY LAW CLERK Arthur Marinelli MD LAB - CHEMISTRY ORD ERABLES [id number] [place] [address], [facility] [phone] * CT CHEST PE W ABD PELVIS W CONT (06/28/2022 1:05 AM ATTORNEY LAW CLERK) Anatomical Region Laterality Modality Chest, Abdomen, Pelvis Computed Tomography 06/28/2022 1:52 AM ATTORNEY LAW CLERK Impressions 06/28/2022 8:38 AM ATTORNEY LAW CLERK Impression: 1.No evidence of acute pulmonary embolism. [...] unremarkable. > Dictated by Alexandro Kelsey MD (founder and president) IAshwin MD have personally reviewed and interpreted this examination/study. > Interpreting Provider: Ashwin Read MD on 06/28/2022 8:38 AM Narrative 06/28/2022 8:38 AM ATTORNEY LAW CLERK PROCEDURE: ??CT CHEST PE W ABD PELVIS W CONT, DATE/TIME OF EXAM: ??06/28/2022 1:26 AM, LOCATION ??[facility] INDICATION: R09.02: Hypoxia ADDITIONAL CLINICAL INFORMATION: [...] CONT, DATE/TIME OF EXAM:06/28/2022 1:26 AM, LOCATION [facility] INDICATION: R09.02: Hypoxia ADDITIONAL CLINICAL INFORMATION: [...] unremarkable. > Dictated by Alexandro Kelsey MD (founder and president) IAshwin MD have personally reviewed and interpreted this examination/study. > Interpreting Provider: Ashwin Read MD on 06/28/2022 8:38 AM Arthur Marinelli MD CT ORDERABLES * (ABNORMAL) CBC W AUTO DIFFERENTIAL (06/27/2022 11:30 PM [facility]) WBC 15.8(H) 3.5 - 10.5 10? 3 /uL 06/27/2022 11:42 PM [facility] RBC 3.88(L) 4.30 - 5.70 10? 6 /uL 06/27/2022 11:42 PM [facility] Hemoglobin 11.9(L) 12.0 - 17.6 g/dL 06/27/2022 11:42 PM [facility] Hematocrit 36.7 35.2 - 51.7 % 06/27/2022 11:42 PM [facility] MCV 94.6 80.7 - 98.3 fL 06/27/2022 11:42 PM [facility] MCH 30.7 26.7 - 34.0 pg 06/27/2022 11:42 PM [facility] MCHC 32.4 30.8 - 35.9 g/dL 06/27/2022 11:42 PM [facility] RDW-SD 44.0 36.0 - 50.0 fL 06/27/2022 11:42 PM [facility] RDW-CV 12.9 11.2 - 14.8 % 06/27/2022 11:42 PM [facility] Platelet Count 196 150 - 400 10? 3 /uL 06/27/2022 11:42 PM [facility] MPV 12.5 9.4 - 12.9 fL 06/27/2022 11:42 PM [facility] nRBC Absolute 0.00 0 10? 3 /uL 06/27/2022 11:42 PM [facility] nRBC Auto 0.0 0 /100 WBC 06/27/2022 11:42 PM [facility] Neutrophils % 82.1(H) 35.0 - 70.0 % 06/27/2022 11:42 PM [facility] Lymphocytes % 9.1(L) 20.0 - 43.0 % 06/27/2022 11:42 PM [facility] Monocytes % 7.1 5.0 - 13.0 % 06/27/2022 11:42 PM [facility] Eosinophils % 1.1 0.0 - 6.0 % 06/27/2022 11:42 PM [facility] Basophil % 0.2 0.0 - 2.0 % 06/27/2022 11:42 PM [facility] Neutrophils Absolute 12.97(H) 1.60 - 7.00 10? 3 /uL 06/27/2022 11:42 PM [facility] Lymphocyte Absolute 1.44 1.10 - 3.90 10? 3 /uL 06/27/2022 11:42 PM [facility] Monocytes Absolute 1.13(H) 0.26 - 1.07 10? 3 /uL 06/27/2022 11:42 PM [facility] Eosinophils Absolute 0.18 0.00 - 0.47 10? 3 /uL 06/27/2022 11:42 PM [facility] Basophils Absolute 0.03 0.00 - 0.08 10? 3 /uL 06/27/2022 11:42 PM [facility] Immature Granulocytes % 0.4 0.0 - 1.0 % 06/27/2022 11:42 PM [facility] Immature Granulocytes Absolute 0.06 06/27/2022 11:42 PM [facility] Blood BLOOD SPECIMEN / Unknown Venipuncture / Unknown 06/27/2022 11:30 PM ATTORNEY LAW CLERK 06/27/2022 11:35 PM ATTORNEY LAW CLERK Arthur Marinelli MD LAB - HEMATOLOGY OR DERABLES [facility] [address] [place] [address], [facility] [phone] * EKG 12-LEAD (06/27/2022 10:40 PM ATTORNEY LAW CLERK) Ventricular Rate 137 BPM [facility] MUSE Atrial Rate 137 BPM [facility] MUSE P-R Interval 136 ms [facility] QRS Duration ms 74 ms [facility] MUSE Q-T Interval ms 284 ms [facility] MUSE QTC Calculation (Bezet) 428 ms [facility] MUSE Calculated P [place] 31 degrees SL MUSE Calculated R [place] 17 degrees SL MUSE Calculated T [place] 82 degrees [facility] MUSE Interpretation EKG SINUS TACHYCARDIA ANTERIOR INFARCT (CITED ON OR BEFORE 30-MAY-2022) ABNORMAL ECG WHEN COMPARED WITH ECG OF 30-MAY-2022 16:00, VENT. RATE HAS INCREASED BY ??46 BPM QUESTIONABLE CHANGE IN INITIAL FORCES OF SEPTAL LEADS T WAVE INVERSION NO LONGER EVIDENT IN ANTERIOR LEADS Confirmed by SABIHA OLSEN [facility] ([id number]) on 06/30/2022 2:22:42 PM [facility] 06/27/2022 10:4 0 PM ATTORNEY LAW CLERK 06/30/2022 2:22 PM ATTORNEY LAW CLERK Arthur Marinelli MD ECG ORDERABLES [facility] [facility] * SARS-COV-2 (COVID-19) FLU A/B RSV PCR RAPID (06/27/2022 10:23 PM ATTORNEY LAW CLERK) [facility] COVID-19 PCR Not detected Not detected 06/27/19 11:10 PM ATTORNEY LAW CLERK [facility] Influenza A PCR Not detected Not detected 06/27/2022 11:10 PM ATTORNEY LAW CLERK [facility] Influenza B PCR Not detected Not detected 06/27/2022 11:10 PM ATTORNEY LAW CLERK [facility] RSV PCR Not detected Not detected 06/27/2022 11:10 PM ATTORNEY LAW CLERK [facility] Microbiology SPECIMEN FROM NASOPHARYNGEAL STRUCTURE / Unknown Collection / Unknown 06/27/2022 10:23 PM ATTORNEY LAW CLERK 06/27/2022 10:28 PM ATTORNEY LAW CLERK Narrative [facility] - 06/27/2022 11:10 PM ATTORNEY LAW CLERK This nucleic acid amplification assay has been [...] LAB - MICROBIOLOGY ORDERABLES Performing Organization Address [facility]/ZIP Co de Phone Number [address] [address], [facility] [phone] * LACTIC ACID REPEAT REFLEX (06/27/2022 10:15 PM ATTORNEY LAW CLERK) Lactic Acid Repeat Reflex Order LACTIC ACID REPEAT HAS BEEN ORDERED 06/28/2022 12:31 AM ATTORNEY LAW CLERK [facility] Blood BLOOD SPECIMEN / Unknown Venipuncture / Unknown 06/27/2022 10:15 PM ATTORNEY LAW CLERK 06/27/2022 11:06 PM ATTORNEY LAW CLERK Arthur Marinelli MD LAB - CHEMISTRY ORD ERABLES Performing Organization Address [facility]/ZIP Co de Phone Number [address] [address], [facility] [phone] * PT-INR [facility] (06/27/2022 10:15 PM ATTORNEY LAW CLERK) PT 12.8 12.1 - 14.8 Seconds 06/27/2022 10:54 PM ATTORNEY LAW CLERK [facility] INR 1.0 See Comment 06/27/2022 10:54 PM [facility] Comment:The suggested therap eutic range for standard coumadin (warfarin) therapy is an INR of 2.0-3.0. For high-risk patients (Mechanical Mitral Valve Prosthesis, etc.), the suggested prophylactic therapeutic range is an INR of 2.5-3.5. Blood BLOOD SPECIMEN / Unknown Venipuncture / Unknown 06/27/2022 10:15 PM ATTORNEY LAW CLERK 06/27/2022 10:33 PM ATTORNEY LAW CLERK Arthur Marinelli MD LAB - COAGULATION O RDERABLES Performing Organization Address City/[facility]/ZIP Co de Phone Number [address] [address], [facility] [phone] * CULTURE BLOOD (06/27/2022 10:15 PM ATTORNEY LAW CLERK) Culture No growth day 5 JELLY 07/03/2022 2:00 AM ATTORNEY LAW CLERK [facility] MICROBIOLOGY Blood PERIPHERAL BLOOD / Unknown Venipuncture / Unknown 06/27/2022 10:15 PM ATTORNEY LAW CLERK 06/27/2022 10:29 PM ATTORNEY LAW CLERK Arthur Marinelli MD LAB - MICROBIOLOGY ORDERABLES Performing Organization Address [facility] Co de Phone Number [facility] MICROBIOLOGY [address] [place] [address], [facility] [phone] * TROPONIN I (06/27/2022 10:15 PM ATTORNEY LAW CLERK) Troponin I <0.010 <0.032 ng/mL 06/27/2022 11:05 PM ATTORNEY LAW CLERK [facility] Blood BLOOD SPECIMEN / Unknown Venipuncture / Unknown 06/27/2022 10:15 PM ATTORNEY LAW CLERK 06/27/2022 10:32 PM ATTORNEY LAW CLERK Arthur Marinelli MD LAB - CHEMISTRY ORD ERABLES Performing Organization Address [facility] Co de Phone Number [address] [address], [facility] [phone] * MAGNESIUM BLOOD (06/27/2022 10:15 PM ATTORNEY LAW CLERK) Magnesium 1.9 1.6 - 2.6 mg/dL 06/27/2022 10:59 PM ATTORNEY LAW CLERK [facility] Blood BLOOD SPECIMEN / Unknown Venipuncture / Unknown 06/27/2022 10:15 PM ATTORNEY LAW CLERK 06/27/2022 10:32 PM ATTORNEY LAW CLERK Arthur Marinelli MD LAB - CHEMISTRY ORD ERABLES Performing Organization Address City/[facility]/ZIP Co de Phone Number [address] [address], [place] [phone] * LIPASE BLOOD (06/27/2022 10:15 PM ATTORNEY LAW CLERK) Pathologist [facility] Lipase 18 8 - 78 U/L 06/27/2022 10:59 PM [facility] Blood BLOOD SPECIMEN / Unknown Venipuncture / Unknown 06/27/2022 10:15 PM ATTORNEY LAW CLERK 06/27/2022 10:32 PM ATTORNEY LAW CLERK Narrative [facility] - 06/27/2022 10:59 PM ATTORNEY LAW CLERK Lipase results from the [employer] Alinity analyzer may not be comparable with other methodologies. Arthur Marinelli MD LAB - CHEMISTRY ORD ERABLES [facility] [address] [place] [address], [place] [phone] * (ABNORMAL) LACTIC ACID BLOOD REFLEX TO REPEAT (06/27/2022 10:15 PM ATTORNEY LAW CLERK) [facility] Lactic Acid-Stat 2.5(H) <=2.0 mmol/L 06/27/2022 11:06 PM [facility] Blood BLOOD SPECIMEN / Unknown Venipuncture / Unknown 06/27/2022 10:15 PM ATTORNEY LAW CLERK 06/27/2022 10:32 PM ATTORNEY LAW CLERK Arthur Marinelli MD LAB - CHEMISTRY ORD ERABLES [facility] [address] [place] [address], [place] [phone] * (ABNORMAL) COMPREHENSIVE METABOLIC PANEL (06/27/2022 10:15 PM ATTORNEY LAW CLERK) [facility] BUN 17 7 - 26 mg/dL 06/27/2022 10:59 PM [facility] Creatinine 0.78 0.71 - 1.16 mg/dL 06/27/2022 10:59 PM [facility] Sodium 142 136 - 145 mmol/L 06/27/2022 10:59 PM [facility] Potassium 4.4 3.5 - 4.5 mmol/L 06/27/2022 10:59 PM [facility] Chloride 101 98 - 107 mmol/L 06/27/2022 10:59 PM [facility] CO2 26 22 - 29 mmol/L 06/27/2022 10:59 PM [facility] Glucose 98 70 - 115 mg/dL 06/27/2022 10:59 PM [facility] Calcium 10.3(H) 8.4 - 10.2 mg/dL 06/27/2022 10:59 PM [facility] Protein Total 8.3 6.0 - 8.3 g/dL 06/27/2022 10:59 PM [facility] Albumin 3.4 3.4 - 5.0 g/dL 06/27/2022 10:59 PM [facility] Bilirubin Total 0.3 0.2 - 1.2 mg/dL 06/27/2022 10:59 PM [facility] Alkaline Phosphatase 95 40 - 150 U/L 06/27/2022 10:59 PM [facility] ALT 6 5 - 55 U/L 06/27/2022 10:59 PM [facility] AST 19 5 - 34 U/L 06/27/2022 10:59 PM [facility] Anion Gap 19(H) 8 - 18 06/27/2022 10:59 PM [facility] BUN/Creatinine Ratio 22 7 - 23 06/27/2022 10:59 PM [facility] Osmolality Calculated 296 270 - 300 mOsm/kg 06/27/2022 10:59 PM [facility] Albumin/Globulin Ratio 0.7(L) 1.1 - 2.3 06/27/2022 10:59 PM [facility] eGFR by CKD-EPI >90 >=90 mL/min/1.7 3 m2 06/27/2022 10:59 PM [facility] Blood BLOOD SPECIMEN / Unknown Venipuncture / Unknown 06/27/2022 10:15 PM ATTORNEY LAW CLERK 06/27/2022 10:32 PM [facility] Arthur Marinelli MD LAB - CHEMISTRY ORD ERABLES [facility] [address] [place] [address] [phone] * XR CHEST 1VW PORTABLE (06/27/2022 10:01 PM ATTORNEY LAW CLERK) Anatomical Region Laterality Modality Chest Radiographic Cynthia ging 06/27/2022 10:2 2 PM ATTORNEY LAW CLERK Impressions 06/27/2022 11:09 PM ATTORNEY LAW CLERK IMPRESSION: Right lower lung zone consolidative opacities, which corresponds to the consolidation seen on chest CT 06/12/2022 and consistent with pneumonia and/or aspiration pneumonitis. Report drafted by Rodolfo Naidu MD (residential carpet installer). IGeorgia MD, PhD have personally reviewed and interpreted this examination/study. > Interpreting Provider: Georgia Lees MD, PhD on 06/27/2022 11:09 PM Narrative 06/27/2022 11:09 PM ATTORNEY LAW CLERK EXAM: XR CHEST 1VW PORTABLE DATE/TIME: 06/27/2022 10:02 PM LOCATION: ??[facility] HISTORY: R09.02: Hypoxia COMPARISON: Chest radiograph 06/11/2022. [...] 1VW PORTABLE DATE/TIME: 06/27/2022 10:02 PM LOCATION: [facility] HISTORY: R09.02: Hypoxia COMPARISON: Chest radiograph 06/11/2022. [...] Report drafted by Rodolfo Naidu MD (residential carpet installer). I, Georgia Lees MD, PhD have personally reviewed and interpreted this examination/study. > Interpreting Provider: Georgia Lees MD, PhD on 06/27/2022 11:09 PM Arthur Marinelli MD DIAGNOSTIC IMAGING ORDERABLES * CULTURE BLOOD (06/27/2022 10:00 PM ATTORNEY LAW CLERK) Culture No growth day 5 JELLY 07/03/2022 2:00 AM ATTORNEY LAW CLERK [facility] MICROBIOLOGY Blood PERIPHERAL BLOOD / Unknown Venipuncture / Unknown 06/27/2022 10:00 PM ATTORNEY LAW CLERK 06/27/2022 10:29 PM ATTORNEY LAW CLERK Arthur Marinelli MD LAB - MICROBIOLOGY ORDERABLES [facility] MICROBIOLOGY [address] [place] [address], [facility] [phone] documented in this encounter Visit Diagnoses Diagnosis [...] acquired Hypernatremia Hyperosmolality and/or hypernatremia Hyperkalemia Hyperpotassemia Dysphagia, oropharyngeal phase documented in this encounter Administered Medications Inactive [...] 8 hours. $ Given 07/21/2022 5:23 AM ATTORNEY LAW CLERK 3 mL $ Given 07/20/2022 8:46 PM ATTORNEY LAW CLERK 3 mL $ Given 07/20/2022 3:21 PM ATTORNEY LAW CLERK 3 mL acetaminophen (Tylenol) tablet 500 mg [...] the MAR. $ Given 07/16/2022 11:08 AM ATTORNEY LAW CLERK 500 mg G Tu be $ Given 07/15/2022 9:56 PM ATTORNEY LAW CLERK 500 mg G Tube $ Given 06/30/2022 2:27 PM ATTORNEY LAW CLERK 500 mg G Tube artificial tears ophthalmic ointment Each Eye, EVERY 8 HOURS, First dose on Tue07/05/22 at 2200, Until Discontinued $ Given 07/21/2022 5:23 AM ATTORNEY LAW CLERK $ Given 07/20/2022 8:45 PM ATTORNEY LAW CLERK $ Given 07/20/2022 3:20 PM ATTORNEY LAW CLERK aspirin chew tablet 81 mg 81 mg, Enteral Tube, DAILY, First dose on Tue06/28/22 at 0900, Until Discontinued $ Given 07/21/2022 9:31 AM ATTORNEY LAW CLERK 81 mg G Tub e $ Given 07/20/2022 8:30 AM ATTORNEY LAW CLERK 81 mg G Tube $ Given 07/19/2022 9:12 AM ATTORNEY LAW CLERK 81 mg G Tube atorvastatin (Lipitor) tablet 40 mg 40 mg, Enteral Tube, DAILY, First dose on Tue06/28/22 at 0900, Until Discontinued $ Given 07/21/2022 9:31 AM ATTORNEY LAW CLERK 40 mg G Tub e $ Given 07/20/2022 8:30 AM ATTORNEY LAW CLERK 40 mg G Tube $ Given 07/19/2022 9:13 AM ATTORNEY LAW CLERK 40 mg G Tube chlorhexidine (Peridex) 0.12 % oral solution 15 mL 15 mL, Mouth/Throat, 2 TIMES DAILY, First dose on Tue07/05/22 at 2130, Until Discontinued, Swab oral mucosa for 30 seconds. Do not brush teeth immediately after use. . WASTE DISPOSAL INSTRUCTIONS: Black Bin Disposal required. $ Given 07/21/2022 9:30 AM ATTORNEY LAW CLERK 15 mL $ Given 07/20/2022 8:31 PM ATTORNEY LAW CLERK 15 mL $ Given 07/20/2022 8:30 AM ATTORNEY LAW CLERK 15 mL cloBAZam (Onfi) tablet 20 mg 20 mg, Enteral Tube, 2 TIMES DAILY, First dose on Tue06/28/22 at 0900, Until Discontinued $ Given 07/21/2022 9:30 AM ATTORNEY LAW CLERK 20 mg G Tube $ Given 07/20/2022 8:31 PM ATTORNEY LAW CLERK 20 mg G Tube $ Given 07/20/2022 8:30 AM ATTORNEY LAW CLERK 20 mg G Tube divalproex sprinkle (Depakote Sprinkle) capsule 500 mg 500 mg, Enteral Tube, EVERY 6 HOURS (03,09,15,21), First dose on Tue07/16/22 at 1500, Until Discontinued, Do not crush or chew sprinkle beads. $ Given 07/21/2022 2:39 PM ATTORNEY LAW CLERK 500 mg G Tube $ Given 07/21/2022 9:30 AM ATTORNEY LAW CLERK 500 mg G Tube $ Given 07/21/2022 2:05 AM ATTORNEY LAW CLERK 500 mg G Tube enoxaparin (Lovenox) injection 40 mg 40 mg, Subcutaneous, DAILY, First dose on Tue07/16/22 at 0900, Until Discontinued, (for prefilled syringes) do not expel air bubble from the syringe prior to the injection Remind Patient to not rub injection site. Could cause hematoma. $ Given 07/21/2022 9:31 AM ATTORNEY LAW CLERK 40 mg Ab dominal Tissue $ Given 07/20/2022 8:30 AM ATTORNEY LAW CLERK 40 mg Ab dominal Tissue $ Given 07/19/2022 9:14 AM ATTORNEY LAW CLERK 40 mg Ab d Right Lower Quadrant EPINEPHrine-NaCl 0.9% syringe PRN, Starting on Marian 07/15/22 at 0810, Until Tue07/21/22 at 1819, Intra-op $ Given 07/15/2022 8:10 AM ATTORNEY LAW CLERK 0.2 mL Ope rative Site famotidine (Pepcid) tablet 20 mg 20 mg, Enteral Tube, DAILY, First dose on Tue07/10/22 at 0900, Until Discontinued $ Given 07/21/2022 9:31 AM ATTORNEY LAW CLERK 20 mg G Tube $ Given 07/20/2022 8:30 AM ATTORNEY LAW CLERK 20 mg G Tube $ Given 07/19/2022 9:12 AM ATTORNEY LAW CLERK 20 mg G Tube fentaNYL (PF) (Sublimaze) injection 25 mcg 25 [...] request must be documented in the MAR. lacosamide (Vimpat) tablet 200 mg 200 mg, Enteral Tube, 2 TIMES DAILY, First dose on Tue07/16/22 at 2100, Until Discontinued $ Given 07/21/2022 9:31 AM ATTORNEY LAW CLERK 200 mg G Tube $ Given 07/20/2022 8:31 PM ATTORNEY LAW CLERK 200 mg G Tube $ Given 07/20/2022 8:31 AM ATTORNEY LAW CLERK 200 mg G Tube levETIRAcetam (Keppra) tablet 1,000 mg 1,000 mg, Enteral Tube, 2 TIMES DAILY, First dose on Tue07/16/22 at 2100, Until Discontinued, Do not crush or chew because of TASTE only. $ Given 07/21/2022 9:31 AM ATTORNEY LAW CLERK 1,000 m g G Tube $ Given 07/20/2022 8:31 PM ATTORNEY LAW CLERK 1,000 mg G Tube $ Given 07/20/2022 8:30 AM ATTORNEY LAW CLERK 1,000 mg G Tube lidocaine 1% (Xylocaine-MPF) - EPINEPHrine 1:100,000 injection PRN, Starting on Tue07/15/22 at 0810, Until Tue07/21/22 at 1819, Intra-op $ Given 07/15/2022 8:10 AM ATTORNEY LAW CLERK 5 mL Opera tive Site oxybutynin (Ditropan) tablet 5 mg 5 mg, Enteral Tube, 2 TIMES DAILY, First dose on Tue07/07/22 at 1030, Until Discontinued $ Given 07/21/2022 9:31 AM ATTORNEY LAW CLERK 5 mg G Tube $ Given 07/20/2022 8:31 PM ATTORNEY LAW CLERK 5 mg G Tube $ Given 07/20/2022 8:30 AM ATTORNEY LAW CLERK 5 mg G Tube polyethylene glycol 3350 (Miralax) packet 17 g 17 g, Enteral Tube, DAILY, First dose on Tue06/28/22 at 0900, Until Discontinued, Mix in 8 ounces of water, juice, soda, coffee or tea prior to administration $ Given 07/21/2022 9:31 AM ATTORNEY LAW CLERK 17 g G Tube $ Given 07/20/2022 8:30 AM ATTORNEY LAW CLERK 17 g G Tube $ Given 07/19/2022 9:14 AM ATTORNEY LAW CLERK 17 g G Tube senna-docusate (Senokot-S) tablet 1 tablet 1 tablet, Enteral Tube, 2 TIMES DAILY, First dose on Tue07/16/22 at 1045, Until Discontinued $ Given 07/21/2022 9:31 AM ATTORNEY LAW CLERK 1 tablet G Tube $ Given 07/20/2022 8:31 PM ATTORNEY LAW CLERK 1 tablet G Tube $ Given 07/20/2022 8:30 AM ATTORNEY LAW CLERK 1 tablet G Tube sodium chloride (Inhalant) 7 % nebulizer solution 4 mL 4 mL, Inhalation, 2 TIMES DAILY, First dose on Tue07/14/22 at 1215, Until Discontinued $ Given 07/21/2022 8:35 AM ATTORNEY LAW CLERK 4 mL $ Given 07/20/2022 9:47 PM ATTORNEY LAW CLERK 4 mL $ Given 07/20/2022 9:12 AM ATTORNEY LAW CLERK 4 mL tamsulosin (Flomax) capsule 0.4 mg 0.4 mg, Oral, DAILY, First dose on Tue06/28/22 at 0900, Until Discontinued, At the same time every day after a meal. Give by enteral tube Do not crush, chew $ Given 07/21/2022 9:36 AM ATTORNEY LAW CLERK 0.4 mg $ Given 07/20/2022 8:30 AM ATTORNEY LAW CLERK 0.4 mg $ Given 07/19/2022 9:13 AM ATTORNEY LAW CLERK 0.4 mg documented in this encounter Active and Recently Administered Medications Times are shown in ATTORNEY LAW CLERK. Scheduled Medication Order 07/19/2022 07/20/2022 07/21/2022 0.9% [...] ALFRED) 0506 ($ Given - Provider: Viri Olson RN)1521 ($ Given - Provider: Kaye Xie, ALFRED)2046 ($ Given - Provider: Viri Olson, RN) [...] RN)1520 ($ Given - Provider: Kaye Xie RN)204 ($ Given - Provider: Viri Olson RN) [...] ($ Given - Provider: Crystal Schaefer RN) chlorhexidine (Peridex) 0.12 % oral solution 15 mL 15 mL, Mouth/Throat, 2 TIMES DAILY, First dose on Tue07/05/22 at 2130, Until Discontinued, Swab oral mucosa for 30 seconds. Do not brush teeth immediately after use. . WASTE DISPOSAL INSTRUCTIONS: Black Bin Disposal required. 0912 ($ Given - Provider: Timothy Kline RN)2147 ($ Given - Provider: Viri Olson RN) 0830 ($ Given - Provider: Meeta Trujillo RN)2030 ($ Given - Provider: Viri Olson RN) 0930 ($ Given - Provider: Crystal Schaefer, ALFRED) cloBAZam (Onfi) tablet 20 mg 20 mg, Enteral Tube, 2 TIMES DAILY, First dose on Tue06/28/22 at 0900, Until Discontinued 09 ($ Given - Provider: Timothy Kline RN)2147 ($ Given - Provider: Viri Olson RN) 0830 ($ Given - Provider: Meeta Trujillo RN)2030 ($ Given - Provider: Viri Olson RN) 0930 ($ Given - Provider: Crystal Schaefer, ALFRED) divalproex sprinkle (Depakote Sprinkle) capsule 500 mg 500 mg, Enteral Tube, EVERY 6 HOURS (03,,,), First dose on Tue07/16/22 at 1500, Until Discontinued, Do not crush or chew sprinkle beads. 0320 ($ Given - Provider: Susan Good RN)0923 ($ Given - Provider: Timothy Kline RN)1418 ($ Given - Provider: Timothy Kline RN) 0010 (Not Administered - Provider: Viri Olson RN - Reason: Medication not available)0241 ($ Given - Provider: Viri Olson RN)1009 ($ Given - Provider: Meeta Trujillo RN)1520 ($ Given - Provider: Kaye Xie RN)203 ($ Given - Provider: Viri Olson RN) 0205 ($ Given - Provider: Viri Olson [...] 0931 ($ Given - Provider: Crystal Schaefer ALFRED) famotidine (Pepcid) tablet 20 mg 20 mg, Enteral Tube, DAILY, First dose on Tue07/10/22 at 0900, Until Discontinued 911 ($ Given - Provider: Timothy Kline RN) 829 ($ Given - Provider: Meeta Trujillo, ALFRED) 09 ($ Given - Provider: Crystal Schaefer, ALFRED) lacosamide (Vimpat) tablet 200 mg 200 mg, Enteral Tube, 2 TIMES DAILY, First dose on Tue07/16/22 at 2100, Until Discontinued 913 ($ Given - Provider: Timothy Kline RN)2146 ($ Given - Provider: Viri Olson, RN) 830 ($ Given - Provider: Meeta Trujillo, ALFRED)2030 ($ Given - Provider: Viri Olson, ALFRED) 09 ($ Given - Provider: Crystal Schaefer, ALFRED) levETIRAcetam (Keppra) tablet 1,000 mg 1,000 mg, Enteral Tube, 2 TIMES DAILY, First dose on Tue07/16/22 at 2100, Until Discontinued, Do not crush or chew because of TASTE only. 912 ($ Given - Provider: Timothy Kline RN)2146 ($ Given - Provider: Viri Olson RN) 829 ($ Given - Provider: Meeta Trujillo, ALFRED)2030 ($ Given - Provider: Viri Olson, ALFRED) 0931 ($ Given - Provider: Crystal Schaefer, ALFRED) oxybutynin (Ditropan) tablet 5 mg 5 mg, Enteral Tube, 2 TIMES DAILY, First dose on Tue07/07/22 at 1030, Until Discontinued 912 ($ Given - Provider: Timothy Kline RN)2146 ($ Given - Provider: Viri Olson RN) 829 ($ Given - Provider: Meeta Trujillo RN)2030 ($ Given - Provider: Viri Olson, ALFRED) 09 ($ Given - Provider: Crystal Schaefer, ALFRED) [...] dose on Tue07/16/22 at 1045, Until Discontinued 09 ($ Given - Provider: Timothy Kline RN)214 ($ Given - Provider: Viri Olson, ALFRED) 0830 ($ Given - Provider: Meeta Trujillo RN)2030 ($ Given - Provider: Viri Olson RN) 0931 ($ Given - Provider: Crystal Schaefer RN) sodium chloride (Inhalant) 7 % nebulizer solution 4 mL 4 mL, Inhalation, 2 TIMES DAILY, First dose on Tue07/14/22 at 1215, Until Discontinued 0930 ($ Given - Provider: Roz Jean RCP)210 ($ Given - Provider: Coni Todd RCP) 09 ($ Given - Provider: Roz Jean RCP)214 ($ Given - Provider: Coni Todd RCP) 0835 ($ Given - Provider: Lindsay Herrera SHIFT SUPERVISOR) tamsulosin (Flomax) capsule 0.4 mg 0.4 mg, Oral, DAILY, First dose on Tue06/28/22 at 0900, Until Discontinued, At the same time every day after a meal. Give by enteral tube Do not crush, chew 0913 ($ Given - Provider: Timothy Kline RN - Comment: pharm approved to give through g tube) 0830 ($ Given - Provider: Meeta Trujillo RN) 0936 ($ Given - Provider: Crystal Schaefer, ALFRED) PRN Medication Order 07/19/2022 07/20/2022 07/21/2022 0.9% [...] on Tue06/28/22 at 0346, Until Tue07/21/22 at 1818 bisacodyl (Dulcolax) suppository 10 mg 10 mg, Rectal, DAILY PRN, Constipation, Starting on Tue06/28/22 at 0305, Until Tue07/21/22 at 1818 EPINEPHrine-NaCl 0.9% syringe PRN, Starting on Tue07/15/22 at 0810, Until Tue07/21/22 at 1818, Intra-op fentaNYL (PF) (Sublimaze) injection 25 mcg [...] - EPINEPHrine 1:100,000 injection PRN, Starting on Tue07/15/22 at 0810, Until Tue07/21/22 at 1818, Intra-op Linked Groups Order Group 1: SALINE [...] require isolation 05/31/2022 05/31/2022 06/29/19 7:19 AM ATTORNEY LAW CLERK COVID-19 Under Investigation 06/27/2022 06/27/2022 06/27/2022 11:10 PM ATTORNEY LAW CLERK MRSA Comment:06/13/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
--- OUTSIDE RECORDS SUMMARY | 2024-06-08 05:37 | XMS_ITS | Encounter Summary ---
Author Organization [facility] Health Address [address] [place] [address] Care Team Providers Care Automobile Assembler Name Role Phone Elizabeth Sullivan RN Unavailable [phone] Joyce Luevano CASE TECHNICIAN-IN FLIGHT TECHNICIAN Primary Care Provider [phone] Encounter Details Date Type Department Care Team (Late st Contact Info) Description 06/25/2022 11:00 AM MAINTENANCE MECHANIC ELEVATORS Office Visit [facility] [address] [place] [address] Marcella Green P, ICE CREAM DIPPER [address] [place] [address] [place] [address] Oropharyngeal dysphagia (Primary Dx); Problems with swallowing and mastication Social History Tobacco Use Types Packs/Day Years Used Date Smoking Tobacco: Former Cigarettes 1 15 Smokeless Tobacco: Never Alcohol Use Standard Drinks/Week Comments No 0 (1 standard drink = 0.6 oz pur e alcohol) last drink 2015 AUDIT-C Answer Date Recorded Q1: How often do you have a drink containing alcohol? Never 06/11/2022 Q2: How many drinks containi ng alcohol do you have on a typical day when you are drinking? Patient does not drink Q3: How often do you have si x or more drinks on one occasion? Never 06/11/2022 Hunger Vital Sign Answer Date Recorded Within the past 12 months, y ou worried that your food would run out before you got the money to buy more. Never true 06/01/19 23 Within the past 12 months, t he food you bought just didn't last and you didn't have money to get more. Never true 06/01/2022 Sex and Gender Information Value Date Recorded Sex Assigned at Not on file Gender Identity Not on file Sexual Orientation Not on file documented as of this encounter Functional Status Functional Status Response Date of Assess ment Is person deaf or have serious hearing difficult y? No 06/14/2022 Is person blind or have serious difficulty seein g? No 06/14/2022 Does person have serious dif ficulty walking/climbing stairs? Yes 06/14/2022 Does person have difficulty dressing/bathing? Ye s 06/14/2022 Does person have difficulty doing errands alone? Yes 06/14/2022 Cognitive Status Response Date of Assessm ent Does person have difficulty concentrating/remembering/making decisions? Yes 06/14/2022 documented as of this encounter Progress Notes * Marcella Thomas, ICE CREAM DIPPER - 06/25/2022 11:42 AM CST Documentation Only No services provided today. Patient seen during Dr. Hurtado's appointment. I will see patient after surgery. Marcella Thomas MA, CCC-ICE CREAM DIPPER, [facility] Speech Language Pathologist Department of Otolaryngology- Head and Neck Surgery TENANCE MECHANIC ELEVATORS documented in this encounter Plan of Treatment Upcoming Encounters Date Type Department Care Team (Late st Contact Info) Description 12/05/2024 1:00 PM CDT Office Visit [facility] - Neurology [address] [place] [address], [facility] [place] [address] Sean Raymundo DO [address] [place] [address] [place] [address] documented as of this encounter Visit Diagnoses Diagnosis Oropharyngeal dysphagia- Primary Dysphagia, oropharyngeal phase Problems with swallowing and mastication 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
--- OUTSIDE RECORDS SUMMARY | 2024-06-08 05:37 | XMS_ITS | Encounter Summary ---
Author Organization [facility] Health Address [address] [place] [address] Care Team Providers Care Tiltrotor Crew Chief Name Role Phone Elizabeth Sullivan RN Unavailable [phone] Joyce Luevano FINISHER COLD ROLLING-DOPEMAN Primary Care Provider [phone] Reason for Visit * Reason Onset Date Comments Medication Clarification 06/23/2022 Encounter Details Date Type Department Care Team (Late st Contact Info) Description 06/23/2022 Telephone [facility] [address] [place] [address] Yana Rm APRN-CNP [address] [place] [address] Medication Clarification Social History Tobacco Use Types Packs/Day Years [...] Yes 06/14/2022 documented as of this encounter Miscellaneous Notes * Telephone Encounter - Michaela Bass RN - 06/23/2022 1:41 PM CST Attempted to contact facility x 2, on hold for 30 minutes 1st time and then just rang for 5 minuteswithout anyone picking up. Asked traveling accountant Verenice to have the RN for [facility] fax over his current med list for his visit tomorrow. Stressed the importance of this. She v/u. ULT AMPHIBIOUS VEHICLE OFFICER * Telephone Encounter - Michaela Bass RN - 06/23/2022 12:36 PM CST ----- Message from ELANA Cullen sent at 06/23/2022 9:53 AM ASSAULT AMPHIBIOUS VEHICLE OFFICER ----- Regarding: ASHOK William, Can we have Skilled Nursing fax us updated medication list on this patient, have an apt with him tomorrow and want to make sure I have the most up to date. Thank you! -Yana ULT AMPHIBIOUS VEHICLE OFFICER documented in this encounter Plan of Treatment Upcoming Encounters Date Type Department Care Team (Late st Contact Info) Description 12/05/2024 1:00 PM CDT Office Visit [facility] - Neurology [address] [facility], [place] [address] Sean Raymundo, DO [address] [place] [id number] documented as of this encounter Visit Diagnoses Not on file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 05/31/2022 05/31/2022 06/29/19 7:19 AM ASSAULT AMPHIBIOUS VEHICLE OFFICER documented as of this encounter Care Teams Tiltrotor Crew Chief Relationship Specialty Start Date End Date Joyce Luevano, FINISHER COLD ROLLING-[place]OPEMAN [address] [place] [phone] PCP - General 03/08/22 11/17/23 Elizabeth Sullivan, RN Tree Killer 10/14/17 documented as of this encounter
--- OUTSIDE RECORDS SUMMARY | 2024-06-08 05:37 | XMS_ITS | Encounter Summary ---
Author Organization [facility] Address [address] [place] [address] Care Team Providers Care Mat Packer Name Role Phone Elizabeth Sullivan RN Unavailable [phone] Joyce Luevano SENSITOMETRIST-AUTHORIZER Primary Care Provider [phone] Reason for Visit * Reason Comments Seizure Pt BIBEMS from [facility] [place] with report that pt had 4-5 witnessed seizures today witnessed by his family and the last by staff which lasted 3-4 minutes. Reported that seizures start with arm twitching and escalate to full body. Pt is baseline A&O x 4, but is now alert and oriented to self, place, and situation. Pt has history of CVA with left side hemiparesis. FEEDING TUBE PROBLEM Per report pts feed ing tube is not working properly. Unable to flush or aspirate. Encounter Details Date Type Department Care Team (Late st Contact Info) Description 06/21/2022 7:04 PM RETIREMENT ASSISTANT - 06/22/2022 5:38 AM RETIREMENT ASSISTANT Emergency [facility] EMERGENCY DEPARTMENT [address] [place] [id number] Leonardo Hanson MD [address] [place] [address] Seizure (HCC); Feeding tube blocked, initial encounter Discharge Disposition: Home or Self Care Social [...] money to buy more. Never true 06/01/19 Within the past 12 months, t he [...] Sign Reading Time Taken Comments Blood Pressure 132/79 06/22/2022 5:35 AM RETIREMENT ASSISTANT Pulse 102 06/22/2022 5:35 AM RETIREMENT ASSISTANT Temperature 37.2 ??C (98.9 ??F) 06/22/2022 5:35 AM CS T Respiratory Rate 16 06/22/2022 5:35 AM RETIREMENT ASSISTANT Oxygen Saturation 96% 06/22/2022 5:35 AM RETIREMENT ASSISTANT Inhaled Oxygen Concentration - - Weight 68 kg (150 lb) 06/21/2022 7:10 PM RETIREMENT ASSISTANT Height 180.3 cm (5' 11 ) 06/21/2022 7:10 PM RETIREMENT ASSISTANT Body Mass Index 20.92 06/21/2022 7:10 PM RETIREMENT ASSISTANT documented in this encounter Functional Status Functional [...] Yes 06/14/2022 documented as of this encounter Discharge Instructions * Discharge Instructions* Lupillo Beck DO - 06/21/2022 9:15 PM RETIREMENT ASSISTANT Bi Tabor was evaluated in the ER after multiple seizures. Has valproic acid blood level was low.The feeding tube [id number] was clotted, rinsed out, and reattached his feeding tube, in which it was able to be flushed easily. Bi received a loading dose of keppra and a dose of his valproic acid for his seizures presumed to be due to not receiving his anti-seizure medications due to a clogged feeding tube. REMENT ASSISTANT documented in this encounter Medications at Time [...] once daily for 30 days 30 tablet 06/15/2022 07/21/2022 atorvastatin (Lipitor) 40 MG tablet 1 (one) tablet by Enteral Tube route once daily 04/01/2022 02/28/2023 bisacodyl (Dulcolax) 10 MG suppository Insert 1 (one) suppository into the rectum once daily as needed for Constipation 03/31/2022 07/21/2022 cloBAZam (Onfi) 20 MG tablet 1 (one) tablet by Enteral Tube route 2 times daily 05/14/2022 11/11/[address] (Depakote) 500 MG tablet Take 1 (one) tablet by mouth as directed 06/15/2022 07/21/2022 divalproex sprinkle (Depakote Sprinkle) 125 MG capsule 4 (four) capsules by Enteral Tube route Every 6 Hours (03,09,15,21) for 30 days 480 capsule 06/15/2022 07/21/2022 docusate sodium (Colace) 150 MG/15ML solution Take 15 mL by mouth once daily as needed for Constipation 04/07/2022 01/14/2023 fluticasone propionate (Flonase) 50 MCG/ACT nasal spray [place] 1 (one) spray into each nostril once [...] 02/15/2019 01/14/2023 levETIRAcetam (Keppra) 500 MG tablet Take 1 (one) tablet by mouth as directed 06/15/2022 06/28/2022 levETIRAcetam (KEPPRA) 750 MG tabletIndications:Pa rtial 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, intractable, without status epilepticus (HCC) Take 3 tablets by mouth 2 times daily for 30 days 180 tablet 06/10/2018 01/14/2023 loratadine (Claritin) 10 MG tablet Take 1 (one) tablet by mouth once daily 06/07/2022 09/27/2022 midazolam (Nayzilam) 5 MG/0.1ML nasal spray [place] 0.1 mL into the nose as needed for Seizures 1 Each 5 06/21/2022 11/11/2022 polyethylene glycol 3350 (Miralax) 17 g packet 17 (seventeen) g by Enteral Tube route once daily for 30 days 30 packet 06/15/2022 07/21/2022 tamsulosin (Flomax) 0.4 MG capsule Take 1 (one) capsule by mouth once daily At the same time every day after a meal. Please make sure it is via enteral tube. 06/15/2022 01/14/2023 Valproate Sodium (Valproic Acid) 250 MG/5ML Take 5 mL by mouth as directed 05/25/2022 06/28/2022 documented as of this encounter ED Notes * Jenny Bruce RN - 06/22/2022 2:31 AM CST EMS [facility], However as EMS was taking PT cardiac Leads off PT had a episode of Seizure that lasted about 30 seconds. MD Hanson was notified. Plan is to delay discharge and continue to observe Pt. Nurse in Charge was updated on PT status. REMENT ASSISTANT * Jenny Bruce RN - 06/22/2022 12:59 AM CST halfway was informed that Pt is discharge and will be sent back to same Via EMS. REMENT ASSISTANT * Jenny Bruce RN - 06/21/2022 9:28 PM CST PT J Tube was flushed with 40mls of H2O, Same flushed without resistance. REMENT ASSISTANT * Jenny Bruce RN - 06/21/2022 9:17 PM CST Both Pt IV access infiltrated. Charged Nurse notified Of Pt needing US IV, Currently awaiting same to continue PT Keppra. REMENT ASSISTANT * Pat Beckett RN - 06/21/2022 8:48 PM CST Pt's second MAY not working. Charge nurse informed, requesting US may. REMENT ASSISTANT * Gaviota Panda RN - 06/21/2022 7:15 PM CST Per report pts feeding tube is not working properly. Unable to flush or aspirate. REMENT ASSISTANT * Leonardo Hanson MD - 06/21/2022 7:13 PM CST ED Attending Note I have personally seen, examined and been fully involved in the management of this patient with theresident who has contributed to this note. History: Bi Tabor is a 62 year old male is presenting to the ED for evaluation of seizures. Patient is currently a resident of [facility], where he had 4-5 witnessed seizures throughout the day today. Seizure-like activity was witnessed by patient's brother and by staff at the retirement.Staff reported that the activity started with twitching of the patient's arm, and then progressed to full body shaking. Per chart review, patient is prescribed Keppra and valproic acid. However, staff also reported that the patient's G-tube was clogged and unable to be flushed. Patient, consequently, did not receive his daily medications today. Patient now denying any symptoms. No other complaints or modifying factors at this [...] on file Housing Stability: Not on file Review of Systems: Review of Systems Unable to perform ROS: Mental status change Neurological: Positive for seizures. Patient Vitals for the past 6 hrs: Pulse Resp BP 06/22/22 0358 106 16 126/89 06/22/22 0325 107 -- -- 06/22/22 0323 -- 17 154/91 06/22/22 0158 108 21 129/83 Exam: Physical Exam Constitutional: General: He is not in acute distress. Comments: A&Ox2 HENT: Head: Normocephalic and atraumatic. Eyes: Pupils: Pupils are equal, round, and reactive to light. Cardiovascular: Rate and Rhythm: Normal rate and regular rhythm. Pulmonary: Effort: Pulmonary effort is normal. Breath sounds: Normal breath sounds. Abdominal: General: Bowel sounds are normal. There is no distension. Palpations: Abdomen is soft. Tenderness: There is no abdominal tenderness. Genitourinary: Comments: Chronically placed G-tube with no surrounding erythema or edema Musculoskeletal: General: No deformity. Cervical back: Neck supple. Left Lower Extremity: Left leg is amputated above knee. Skin: General: Skin is warm and dry. Neurological: Mental Status: He is alert. Comments: A&Ox2 to person and place, not oriented to time Medical Decision Makin. Multiple seizures at home DDX: Medication noncompliance vs breakthrough seizure vs intercranial mass vs other Plan: CBC, CMP, CT Head, load with Keppra Results: Labs Reviewed CBC W AUTO DIFFERENTIAL - Abnormal; Notable for the following components: Result Value RBC 4.21 (*) Neutrophils % 70.5 (*) Lymphocytes % 19.8 (*) All other components within normal limits COMPREHENSIVE METABOLIC PANEL - Abnormal; Notable for the following components: Creatinine 0.58 (*) Glucose 116 (*) Calcium 10.7 (*) Albumin 3.2 (*) BUN/Creatinine Ratio 24 (*) Albumin/Globulin Ratio 0.6 (*) All other components within normal limits VALPROIC ACID LEVEL - Abnormal; Notable for the following components: Valproic Acid Total 47 (*) All other components within normal limits LACOSAMIDE GLUCOSE - POINT OF CARE CT HEAD WO CONTRAST Final Result PROCEDURE: CT HEAD WO CONTRAST, DATE/TIME OF EXAM: 06/21/2022 8:20 PM, LOCATION: [facility] INDICATION: R56.9: Seizure (CMS/HCC) ADDITIONAL CLINICAL INFORMATION: Ordering Provider Reason For Exam: r/o ICH. COMPARISON: Head CT 05/11/2022. EXAMINATION: CT scan of the head without intravenous contrast TECHNIQUE: CT of the head was performed without intravenous contrast according to standard protocol. CT dose reduction technique was used, including Automated Exposure Control. FINDINGS: BRAIN PARENCHYMA: No acute hemorrhage, large vascular territory infarction, or mass effect. Unchanged hypodense area of the right medial occipital lobe, consistent with a chronic right posterior cerebral artery (PROGRAM SCHEDULE CLERK) vascular territory infarct. Unchanged small chronic lacunes of the left cerebellum, left paramedian isabella, thalami, and left basal ganglia. Scattered and confluent white matter hypodensities, which are nonspecific but likely represents the sequela of chronic microangiopathic change. Moderate generalized parenchymal volume loss with ex vacuo dilation of the ventricles. VENTRICLES/EXTRA-AXIAL SPACES: No evidence of acute hydrocephalus. No extra-axial collection. Basal cisterns are patent. EXTRACRANIAL STRUCTURES: No acute or suspicious osseous abnormality. Re-demonstrated complete opacification of the right maxillary sinus with mixed density material extending into the right nasal cavity through an accessory ostium, which may represent an antrochoanal polyp. Mild mucosal thickening of the ethmoid air cells. Incidentally noted left middle nasal turbinate [...] Moderate calcific atherosclerosis of the carotid siphons. IMPRESSION: No acute intracranial abnormality. Specifically, no acute intracranial hemorrhage as clinically queried. The report was drafted by Nash Arreola MD (residential assistant) I, Georgia Lees MD, PhD have personally reviewed and interpreted this examination/study. > Interpreting Provider: Georgia Lees MD, PhD on 06/21/2022 9:14 PM ED course: The patient's Oxygen Saturation Monitor was interpreted by me. The reading was 99%. The patient wason RA at the time of the reading. This is interpreted as normal. 8:34 PM: CT Head shows no acute intercranial hemorrhage. 11:23 PM: Valproic acid level is decreased to 47. Will give Depakote. Will plan for discharge. Transport has been called to appropriately bring patient back to facility. 2:30 AM: As EMS arrived to transport the patient, he had an episode of seizure- like activity that lasted for approximately ten seconds. HR noted to increase to 150 bpm during this period, while all four extremities shook. After reviewing chart, it appears that patient is prescribed Keppra 2000mg BID, Depakote 2000mg daily, Vimpat 200mg BID, and Clobazam 10mg daily. Therefore, will load with all of these medications. 5:03 AM: Patient has been given all of his antiepileptics and has not had another seizure. Will plan for discharge. G-tube has been declogged and is running properly. Consult No Procedure done at this time No Ultrasound done at this time No Orders Placed This Encounter ??? CT HEAD WO CONTRAST ??? CBC W AUTO DIFFERENTIAL ??? COMPREHENSIVE METABOLIC PANEL ??? VALPROIC ACID LEVEL ??? LACOSAMIDE ??? DISCONTD: levETIRAcetam (Keppra) 2,000 mg in 0.9% NaCl IV 270 mL IVPB ??? AND Linked Order Group ??? levETIRAcetam (Keppra) 1,000 mg in 100 mL IVPB ??? levETIRAcetam (Keppra) 1,000 mg in 100 mL IVPB ??? valproic acid (Depakene) solution 500 mg ??? levETIRAcetam (Keppra) 1,000 mg in 100 mL IVPB ??? lacosamide (Vimpat) tablet 200 mg ??? DISCONTD: cloBAZam (Onfi) tablet 20 mg ??? valproic acid (Depakene) solution 500 mg ??? cloBAZam (Onfi) tablet 10 mg Medications valproic acid (Depakene) solution 500 mg (500 mg Enteral Tube $ Given 06/22/22 0034) levETIRAcetam (Keppra) 1,000 mg in 100 mL IVPB (has no administration in time range) lacosamide (Vimpat) tablet 200 mg (200 mg Enteral Tube $ Given 06/22/22 0306) cloBAZam (Onfi) tablet 10 mg (10 mg Enteral Tube $ Given 06/22/22 0312) levETIRAcetam (Keppra) 1,000 mg in 100 mL IVPB (0 mg Intravenous Stopped 06/21/222237) And levETIRAcetam (Keppra) 1,000 mg in 100 mL IVPB (0 mg Intravenous Stopped 06/21/222037) valproic acid (Depakene) solution 500 mg (500 mg Enteral Tube $ Given 06/22/22 0312) Clinical Impression: 1. Seizure (CMS/HCC) 2. Feeding tube blocked, initial encounter Disposition: Discharge By signing my name below, I, Pia Xie, attest that this documentation has been prepared under the direction and in the presence of Dr. Hanson. Signed: Laisha Tejada. I, Dr. Hanson, personally performed the services described in this documentation. All medical record entries made by the scribe were at my direction and in my presence. I have reviewed the chart and agree that the record reflects my personal performance and is accurate and complete. REMENT ASSISTANT * Gaviota Panda RN - 06/21/2022 7:10 PM CST Pt BIBEMS from [facility] with report that pt had 4-5 witnessed seizures today witnessed by his family and the last by staff which lasted 3-4 minutes. Reported that seizures start with arm twitching and escalate to full body. Pt is baseline A&O x 4, but is now alert andoriented to self, place, and situation. Pt has history of CVA with left side hemiparesis. Past Medical History: Diagnosis Date ??? CVA (cerebral vascular accident) (CMS/HCC) ??? HTN (hypertension) ??? Seizure (CMS/HCC) Past Surgical History: Procedure Laterality Date ??? ENDOSCOPY, UPPER N/A 03/25/2022 N/A; ESOPHAGOGASTRODUODENOSCOPY (EGD) DIAGNOSTIC with PEG Placement ??? Leg Amputation, Below Knee Left 03/15/2022 Left; LEFT BKA POSS AKA REMENT ASSISTANT * Mandi Calero RN - 06/21/2022 7:04 PM CST Bed: AC21 Expected date: Expected time: Means of arrival: Comments: [facility] REMENT ASSISTANT documented in this encounter Plan of Treatment Upcoming Encounters Date Type Department Care Team (Late st Contact Info) Description 12/05/2024 1:00 PM CDT Office Visit [facility] - Neurology [address] [place] [address], [place] [address] Sean Raymundo, [address] [place] [address] [place] [address] documented as of this encounter Procedures Procedure Name Priority Date/Time Associated Diagnosis Comments LACOSAMIDE STAT 06/22/2022 3:52 AM RETIREMENT ASSISTANT VALPROIC ACID LEVEL STAT 06/21/2022 1 1:09 PM RETIREMENT ASSISTANT GLUCOSE - POINT OF CARE Routine 06/21/2022 8:[address] HEAD WO CONTRAST STAT 06/21/2022 8 :19 PM RETIREMENT ASSISTANT Seizure (HCC) CBC W AUTO DIFFERENTIAL STAT 06/21/2022 7:26 PM RETIREMENT ASSISTANT COMPREHENSIVE METABOLIC PANEL STAT 06/21/2022 7:26 PM RETIREMENT ASSISTANT documented in this encounter Results * LACOSAMIDE (06/22/2022 3:52 AM RETIREMENT ASSISTANT) [facility] Lacosamide 6.4 1.0 - 10.0 ug/mL 06/29/2022 10:01 AM RETIREMENT ASSISTANT [facility] ([facility]) Comment: INTERPRETIVE INFORMATION: Lacosamide, Serum or [...] developed and its performance characteristics determined by [facility]. It has not been cleared or approved by the US Food and Drug Administration. This test was performed in a CLIA-certified laboratory and is intended for clinical purposes. Performed By: [facility] [address] [place] [address] Museum Archivist: Power Milian MD, PhD Blood BLOOD SPECIMEN / Unknown Venipuncture / Unknown 06/22/2022 3:52 AM RETIREMENT ASSISTANT 06/22/2022 3:53 AM RETIREMENT ASSISTANT Leonardo Hanson MD LAB - CHEMISTRY MARSHAL MEDEROS [facility] ([facility]) [address] [place] [address], [facility] [[email or web address]] * (ABNORMAL) VALPROIC ACID LEVEL (06/21/2022 11:09 PM RETIREMENT ASSISTANT) Valproic Acid Total 47(L) 50 - 100 ug/mL 06/21/2022 11:44 PM RETIREMENT ASSISTANT [facility] Blood BLOOD SPECIMEN / Unknown Venipuncture / Unknown 06/21/2022 11:09 PM RETIREMENT ASSISTANT 06/21/2022 11:18 PM RETIREMENT ASSISTANT Leonardo Hanson MD LAB - CHEMISTRY ORDE GATITO [facility] [address] [place] [address], [place] [phone] * GLUCOSE - POINT OF CARE (06/21/2022 8:44 PM RETIREMENT ASSISTANT) Pathologist [facility] Glucose WB/POC 109 70 - 115 mg/dL 06/21/2022 8:44 PM RETIREMENT ASSISTANT [facility] Specimen Type Cap Fingerstick 2022 8:44 PM RETIREMENT ASSISTANT [facility] Blood BLOOD SPECIMEN / Unknown 06/21/2022 8:44 PM RETIREMENT ASSISTANT 06/21/2022 8:44 PM RETIREMENT ASSISTANT Leonardo Hanson MD LAB - POINT OF CARE ORDERABLES Performing Organization Address City/[facility]/ZIP Co de Phone Number [address] [address], [place] [phone] * CT HEAD WO CONTRAST (06/21/2022 8:19 PM RETIREMENT ASSISTANT) Anatomical Region Laterality Modality Head Computed Tomogra phy 06/21/2022 8:24 PM RETIREMENT ASSISTANT Impressions 06/21/2022 9:14 PM RETIREMENT ASSISTANT IMPRESSION: No acute intracranial abnormality. Specifically, no acute intracranial hemorrhage as clinically queried. The report was drafted by Nash Arreola MD (residential assistant) I, Georgia Lees MD, PhD have personally reviewed and interpreted this examination/study. > Interpreting Provider: Georgia Lees MD, PhD on 06/21/2022 9:14 PM Narrative 06/21/2022 9:14 PM RETIREMENT ASSISTANT PROCEDURE: ??CT HEAD WO CONTRAST, DATE/TIME OF EXAM: ??06/21/2022 8:20 PM, LOCATION: ??[facility] INDICATION: R56.9: Seizure (CMS/HCC) ADDITIONAL CLINICAL INFORMATION: Ordering Provider Reason For Exam: ??r/o ICH. COMPARISON: Head CT 05/11/2022. EXAMINATION: CT scan of the head without intravenous contrast TECHNIQUE: CT of the head was performed without intravenous contrast according to standard protocol. CT dose reduction technique was used, including Automated Exposure Control. FINDINGS: BRAIN PARENCHYMA: No acute hemorrhage, large vascular territory infarction, or mass effect. Unchanged hypodense area of the right medial occipital lobe, consistent with a chronic right posterior cerebral artery (PROGRAM SCHEDULE CLERK) vascular territory infarct. Unchanged small chronic lacunes of the left cerebellum, left paramedian isabella, thalami, and left basal ganglia. Scattered and confluent white matter hypodensities, which are nonspecific but likely represents the sequela of chronic microangiopathic change. Moderate generalized parenchymal volume loss with ex vacuo dilation of the ventricles. VENTRICLES/EXTRA-AXIAL SPACES: No evidence of acute hydrocephalus. No extra-axial collection. Basal cisterns are patent. EXTRACRANIAL STRUCTURES: No acute or suspicious osseous abnormality. Re-demonstrated complete opacification of the right maxillary sinus with mixed density material extending into the right nasal cavity through an accessory ostium, which may represent an antrochoanal polyp. Mild mucosal thickening of the ethmoid air cells. Incidentally noted left middle nasal turbinate [...] Moderate calcific atherosclerosis of the carotid siphons. Procedure Note Georgia Lees MD - 06/21/2022 PROCEDURE: CT HEAD WO CONTRAST, DATE/TIME OF EXAM: 06/21/2022 8:20 PM, LOCATION: [facility] INDICATION: R56.9: Seizure (CMS/HCC) ADDITIONAL CLINICAL INFORMATION: Ordering Provider Reason For Exam: r/o ICH. COMPARISON: Head CT 05/11/2022. EXAMINATION: CT scan of the head without intravenous contrast TECHNIQUE: CT of the head was performed without intravenous contrast according to standard protocol. CT dose reduction technique was used, including Automated Exposure Control. FINDINGS: BRAIN PARENCHYMA: No acute hemorrhage, large vascular territoryinfarction, or mass effect. Unchanged hypodense area of the right medial occipital lobe, consistent with a chronic right posterior cerebral artery (PROGRAM SCHEDULE CLERK) vascular territory infarct. Unchanged small chronic lacunes of the left cerebellum, left paramedian isabella, thalami, and left basal ganglia. Scattered andconfluent white matter hypodensities, which are nonspecific but likely representsthe sequela of chronic microangiopathic change. Moderate generalized parenchymal volume loss with ex vacuo dilation of the ventricles. VENTRICLES/EXTRA-AXIAL SPACES: No evidence of acute hydrocephalus. No extra-axial collection. Basal cisterns are patent. EXTRACRANIAL STRUCTURES: No acute or suspicious osseous abnormality. Re-demonstrated complete opacification of the right maxillary sinus with mixed density material extending into the right nasal cavity through an accessory ostium, which may represent an antrochoanal polyp. Mildmucosal thickening of the ethmoid air cells. Incidentally noted left middlenasal turbinate cory bullosa versus lamella. Healed fracture deformity ofthe left lamina papyracea; otherwise, orbits are unremarkable. Mastoids demonstrate no significant abnormality. Re-demonstrated left paramidline occipital scalp ovoid lesion measuring 3.4 x 1.3 x 0.6 cm (CC x TV x AP; , 08/15), which favors a sebaceous or epidermal inclusion cyst. Soft tissue opacification of the right greater than left external auditory canals, consistent with cerumen. Moderate calcific atherosclerosis ofthe carotid siphons. IMPRESSION: No acute intracranial abnormality. Specifically, no acute intracranial hemorrhage as clinically queried. The report was drafted by Nash Arreola MD (residential assistant) I, Georgia Lees MD, PhD have personally reviewed and interpreted this examination/study. > Interpreting Provider: Georgia Lees MD, PhD on 06/21/2022 9:14 PM Leonardo Hanson MD CT ORDERABLES * (ABNORMAL) COMPREHENSIVE METABOLIC PANEL (06/21/2022 7:26 PM RETIREMENT ASSISTANT) BUN 14 7 - 26 mg/dL 06/21/2022 7:55 PM [facility] Creatinine 0.58(L) 0.71 - 1.16 mg/dL 06/21/2022 7:55 PM [facility] Sodium 142 136 - 145 mmol/L 06/21/2022 7:55 PM [facility] Potassium 4.5 3.5 - 4.5 mmol/L 06/21/2022 7:55 PM [facility] Chloride 106 98 - 107 mmol/L 06/21/2022 7:55 PM [facility] CO2 29 22 - 29 mmol/L 06/21/2022 7:55 PM [facility] Glucose 116(H) 70 - 115 mg/dL 06/21/2022 7:55 PM [facility] Calcium 10.7(H) 8.4 - 10.2 mg/dL 06/21/2022 7:55 PM [facility] Protein Total 8.3 6.0 - 8.3 g/dL 06/21/2022 7:55 PM [facility] Albumin 3.2(L) 3.4 - 5.0 g/dL 06/21/2022 7:55 PM [facility] Bilirubin Total 0.3 0.2 - 1.2 mg/dL 06/21/2022 7:55 PM [facility] Alkaline Phosphatase 88 40 - 150 U/L 06/21/2022 7:55 PM [facility] ALT 10 5 - 55 U/L 06/21/2022 7:55 PM [facility] AST 19 5 - 34 U/L 06/21/2022 7:55 PM [facility] Anion Gap 12 8 - 18 06/21/2022 7:55 PM [facility] BUN/Creatinine Ratio 24(H) 7 - 06/21/2022 7:55 PM [facility] Osmolality Calculated 295 270 - 300 mOsm/kg 06/21/2022 7:55 PM [facility] Albumin/Globulin Ratio 0.6(L) 1.1 - 2.3 06/21/2022 7:55 PM [facility] eGFR by CKD-EPI >90 >=90 mL/min/1.7 3 m2 06/21/2022 7:55 PM [facility] Blood BLOOD SPECIMEN / Unknown Venipuncture / Unknown 06/21/2022 7:26 PM RETIREMENT ASSISTANT 06/21/2022 7:29 PM RETIREMENT ASSISTANT Leonardo Hanson MD LAB - CHEMISTRY MARSHAL MEDEROS [facility] Organization Address City/State/ZIP Co de Phone Number [facility] [address] [place] [address], [facility] [[email or web address] [phone] * (ABNORMAL) CBC W AUTO DIFFERENTIAL (06/21/2022 7:26 PM RETIREMENT ASSISTANT) WBC 9.9 3.5 - 10.5 10? 3 /uL 06/21/2022 8:53 PM [facility] RBC 4.21(L) 4.30 - 5.70 10? 6 /uL 06/21/2022 8:53 PM [facility] Hemoglobin 12.9 12.0 - 17.6 g/dL 06/21/2022 8:53 PM [facility] Hematocrit 40.4 35.2 - 51.7 % 06/21/2022 8:53 PM [facility] MCV 96.0 80.7 - 98.3 fL 06/21/2022 8:53 PM [facility] MCH 30.6 26.7 - 34.0 pg 06/21/2022 8:53 PM [facility] MCHC 31.9 30.8 - 35.9 g/dL 06/21/2022 8:53 PM [facility] RDW-SD 43.0 36.0 - 50.0 fL 06/21/2022 8:53 PM [facility] RDW-CV 12.4 11.2 - 14.8 % 06/21/2022 8:53 PM [facility] Platelet Count 380 150 - 400 10? 3 /uL 06/21/2022 8:53 PM [facility] Comment: Checked by peripheral smear. This is an appended report. ??These results have been appended to a previously preliminary verified report. MPV 06/21/2022 8:53 PM [facility] Comment:Unable to Report Immature Platelet Fraction 06/21/2022 8:53 PM [facility] Comment:Unable to Report nRBC Absolute 0.00 0 10? 3 /uL 06/21/2022 8:53 PM [facility] nRBC Auto 0.0 0 /100 WBC 06/21/2022 8:53 PM [facility] Neutrophils % 70.5(H) 35.0 - 70.0 % 06/21/2022 8:53 PM [facility] Lymphocytes % 19.8(L) 20.0 - 43.0 % 06/21/2022 8:53 PM [facility] Monocytes % 7.7 5.0 - 13.0 % 06/21/2022 8:53 PM [facility] Eosinophils % 1.3 0.0 - 6.0 % 06/21/2022 8:53 PM [facility] Basophil % 0.3 0.0 - 2.0 % 06/21/2022 8:53 PM [facility] Neutrophils Absolute 6.98 1.60 - 7.00 10? 3 /uL 06/21/2022 8:53 PM [facility] Lymphocyte Absolute 1.96 1.10 - 3.90 10? 3 /uL 06/21/2022 8:53 PM [facility] Monocytes Absolute 0.76 0.26 - 1.07 10? 3 /uL 06/21/2022 8:53 PM [facility] Eosinophils Absolute 0.13 0.00 - 0.47 10? 3 /uL 06/21/2022 8:53 PM [facility] Basophils Absolute 0.03 0.00 - 0.08 10? 3 /uL 06/21/2022 8:53 PM [facility] Immature Granulocytes % 0.4 0.0 - 1.0 % 06/21/2022 8:53 PM [facility] Immature Granulocytes Absolute 0.04 06/21/2022 8:53 PM [facility] Blood BLOOD SPECIMEN / Unknown Venipuncture / Unknown 06/21/2022 7:26 PM RETIREMENT ASSISTANT 06/21/2022 7:29 PM RETIREMENT ASSISTANT Leonardo Hanson MD LAB - HEMATOLOGY ORD ERABLES [facility] [address] [place] [address], [facility] [[email or web address]] [phone] documented in this encounter Visit Diagnoses Diagnosis Seizure (HCC) Other convulsions Feeding tube blocked, initial encounter documented in this encounter Administered Medications Inactive Administered Medications - up to 3 most recent administrations Medication Order MAR Action Action Date Dose Rate Site cloBAZam (Onfi) tablet 10 mg 10 mg, Enteral Tube, 2 TIMES DAILY, First dose (after last modification) on Tue06/22/22 at 0315, Until Discontinued $ Given 06/22/2022 3:12 AM RETIREMENT ASSISTANT 10 mg J Tube lacosamide (Vimpat) tablet 200 mg 200 mg, Enteral Tube, 2 TIMES DAILY, First dose on Tue06/22/22 at 0245, Until Discontinued $ Given 06/22/2022 3:06 AM RETIREMENT ASSISTANT 200 mg J Tube levETIRAcetam (Keppra) 1,000 mg in 100 mL IVPB 1,000 mg, at 400 mL/hr, Intravenous, Once, 1 dose, On Tue06/21/22 at 1930, For a total of 2000 mg dose $ New Bag/Syringe 06/21/2022 10:23 PM RETIREMENT ASSISTANT 1,000 mg 400 mL/hr levETIRAcetam (Keppra) 1,000 mg in 100 mL IVPB 1,000 mg, at 400 mL/hr, Intravenous, Once, 1 dose, On Tue06/21/22 at 1930, For a total of 2000 mg dose $ New Bag/Syringe 06/21/2022 7:33 PM RETIREMENT ASSISTANT 1,000 mg 400 mL/hr valproic acid (Depakene) solution 500 mg 500 mg, Enteral Tube, EVERY 8 HOURS, First dose on Tue06/22/22 at 0015, Until Discontinued $ Given 06/22/2022 12:34 AM RETIREMENT ASSISTANT 500 mg J Tube valproic acid (Depakene) solution 500 mg 500 mg, Enteral Tube, NOW, 1 dose, On Tue06/22/22 at 0315 $ Given 06/22/2022 3:12 AM RETIREMENT ASSISTANT 500 mg J Tube documented in this encounter Active and Recently Administered Medications Times are shown in RETIREMENT ASSISTANT. Scheduled Medication Order 06/20/2022 06/21/2022 06/22/2022 cloBAZam (Onfi) tablet 10 mg 10 mg, Enteral Tube, 2 TIMES DAILY, First dose (after last modification) on Tue06/22/22 at 0315, Until Discontinued 031 ($ Given - Provider: Jenny Bruce RN) lacosamide (Vimpat) tablet 200 mg 200 mg, Enteral Tube, 2 TIMES DAILY, First dose on Tue06/22/22 at 0245, Until Discontinued 0306 ($ Given - Provider: Jenny Bruce, ALFRED) levETIRAcetam (Keppra) 1,000 mg in 100 mL IVPB (COMPLETED)(Linked Group 1) 1,000 mg, at 400 mL/hr, Intravenous, Once, 1 dose, On Tue06/21/22 at 1930, For a total of 2000 mg dose 2223 ($ New Bag/Syringe - Provider: Jenny Bruce RN)223 (Stopped - Provider: Jenny Bruce RN) levETIRAcetam (Keppra) 1,000 mg in 100 mL IVPB (COMPLETED)(Linked Group 1) 1,000 mg, at 400 mL/hr, Intravenous, Once, 1 dose, On Tue06/21/22 at 1930, For a total of 2000 mg dose 193 ($ New Bag/Syringe - Provider: Jenny Bruce RN)2037 (Stopped - Provider: Pat Beckett RN) valproic acid (Depakene) solution 500 mg 500 mg, Enteral Tube, EVERY 8 HOURS, First dose on Tue06/22/22 at 0015, Until Discontinued 0034 ($ Given - Provider: Jenny Bruce RN) valproic acid (Depakene) solution 500 mg (COMPLETED) 500 mg, Enteral Tube, NOW, 1 dose, On Tue06/22/22 at 0315 0312 ($ Given - Provider: Jenny Bruce RN) Linked Groups Order Group 1: levETIRAcetam (Keppra) 1,000 mg in 100 mL IVPB (COMPLETED)Jump to med 1,000 mg, at 400 mL/hr, Intravenous, Once, 1 dose, On Tue06/21/22 at 1930, For a total of 2000 mg dose And levETIRAcetam (Keppra) 1,000 mg in 100 mL IVPB (COMPLETED)Jump to med 1,000 mg, at 400 mL/hr, Intravenous, Once, 1 dose, On 06/21/22 at 1930, For a total of 2000 mg dose 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
--- OUTSIDE RECORDS SUMMARY | 2024-06-08 05:37 | XMS_ITS | Encounter Summary ---
Author Organization [facility] Health Address [address] [place] [address] Care Team Providers Care Field Service Technician Poultry Name Role Phone Elizabeth Sullivan RN Unavailable [phone] Joyce Luevano SENIOR CLINICAL RESEARCH SCIENTIST-INFECTION CONTROL PREVENTIONIST Primary Care Provider [phone] Reason for Visit * Reason Comments Lethargy Pt to ED by EMS from SNF for complaints of increased lethargy, increased oxygen demands and productive cough x 24 hours. * Auth/Cert (Routine) Specialty Diagnoses / Procedures Referred By Anabella t Referred To Contact Referral ID Status Reason Start Date Expiration Date Visits Re quested Visits Authorized [id number] 1 1 Encounter Details Date Type Department Care Team (Latest Contact Info) Description 05/30/2022 2:26 PM INSTRUCTIONAL TECHNOLOGY TEACHER - 06/03/2022 1:53 PM INSTRUCTIONAL TECHNOLOGY TEACHER Hospital Encounter [facility] [address] ACUTE [address] [place] [id number] Leonardo Hanson MD [address] [place] [address] Neville Hewitt III, MD [address] [facility] 2L [facility] [place] [address] Paige Brewster MD [address] [place] [address] Westley Corley MD [address] [place] [id number] Internal Medicine Discharge Disposition: Jail Facility Social History Tobacco Use Types Packs/Day Years Used Date Smoking Tobacco: Former Cigarettes 1 15 Smokeless Tobacco: Never Alcohol Use Standard Drinks/Week Comments No 0 (1 standard drink = 0.6 oz pur e alcohol) last drink 2015 AUDIT-C Answer Date Recorded Q1: How often do you have a drink containing alcohol? Never 03/09/2022 Q2: How many drinks containi ng alcohol do you have on a typical day when you are drinking? Patient does not drink Q3: How often do you have si x or more drinks on one occasion? Never 03/09/2022 Hunger Vital Sign Answer Date Recorded Within [...] Sign Reading Time Taken Comments Blood Pressure 154/103 06/03/2022 12:01 PM INSTRUCTIONAL TECHNOLOGY TEACHER Pulse 80 06/03/2022 12:01 PM INSTRUCTIONAL TECHNOLOGY TEACHER Temperature 36.8 ??C (98.2 ??F) 06/03/2022 12:[address] Respiratory Rate 16 06/03/2022 8:08 AM INSTRUCTIONAL TECHNOLOGY TEACHER Oxygen Saturation 96% 06/03/2022 12:01 PM INSTRUCTIONAL TECHNOLOGY TEACHER Inhaled Oxygen Concentration - - Weight 59.5 kg (131 lb 2.8 oz) 06/01/2022 12:00 PM INSTRUCTIONAL TECHNOLOGY TEACHER Height 172.7 cm (5' 8 ) 06/01/2022 12:00 PM INSTRUCTIONAL TECHNOLOGY TEACHER Body Mass Index 19.95 06/01/2022 12:00 PM INSTRUCTIONAL TECHNOLOGY TEACHER documented in this encounter Functional Status Functional Status Response Date of Assess ment Is person deaf or have serious hearing difficult y? No 05/31/2022 Is person blind or have serious difficulty seein g? No 05/31/2022 Does person have serious dif ficulty walking/climbing stairs? Yes 05/31/2022 Does person have difficulty dressing/bathing? Ye s 05/31/2022 Does person have difficulty doing errands alone? Yes 05/31/2022 Cognitive Status Response Date of Assessm ent Does person have difficulty concentrating/remembering/making decisions? Yes 05/31/2022 documented as of this encounter Discharge Summaries * Westley Corley MD - 06/03/2022 9:14 AM CST Physician Discharge Summary Patient ID: Mojgan Tabor [id number] 62 year old 1960 Admit date: 05/30/2022 Discharge date: 06/03/2022 Admitting Physician: Neville Hewitt III, MD Discharge Physician: Westley Corley MD Admission Diagnoses: Shortness of breath Discharge Diagnoses: Aspiration pneumonia Alzheimer's disease Dysphagia Discharged Condition: fair Hospital Course: Mojgan Tabor is a 62-year-old male with past medical history of CVA 2015 hypertension hyperlipidemia early onset Alzheimer's disease, refractory epilepsy, status post PEG tube placement who presented to [facility] emergency department from his care home facility on 30 May 2022 with complaints of lethargy and a new oxygen requirement. Imaging was concerning for aspiration pneumonia, patient had leukocytosis and hypoxemia. He was started on treatment for aspiration pneumonia with IV vancomycin and IV Zosyn which was later deescalated to IV vancomycin and IV ceftriaxone. His flu and COVID testing was negative. Patient was weaned off to room air and his shortness of breath improved. Patient was saturating well on room air. Patient completed 5 days of IV antibiotics. Patient also underwent speech therapy who recommended NPO and continue with tube feeding. Patient was discharged back to his care home facility. 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 - CT finding of debris in the airway and bilateral pneumonia. - Currently patient on room air with no respiratory distress. - s/p zosyn&vanc(MRSA PCR +) while inpatient, Procal negative, will transition to IV Ctx for finishing 5 days of IV Abx ?? Alzheimer Disease: - Patient is on pureed diet at??SNF. Speech therapy recommend return to sniff, patient elevated risk of aspiration with p.o. intake. Keep NPO. - Speech therapy evaluation. - Patient evaluated by ENT last admission 05/14/2022.?It appears that patient might benefit fromsurgical intervention,??to be discussed further as outpatient??(06/25/2022). -??s/p PEG??tube 03/26/2022.? - continue with tube feed. - Dietary consult for tube feed recommendations. Consults: Nutrition and speech therapy Significant Diagnostic Studies: See hospital course Treatments: See hospital course Discharge Exam: Filed Vitals: 06/02/22 2335 06/03/22 0354 06/03/22 0808 06/03/22 1201 BP: 162/79 146/91 153/82 (!) 154/103 Pulse: 77 84 85 80 Resp: 16 Temp: 99 ??F (37.2 ??C) 98.1 ??F (36.7 ??C) 98 ??F (36.7 ??C) 98.2 ??F (36.8 ??C) TempSrc: Axillary Oral Oral SpO2: 97% 96% 96% 96% Weight: Height: General: alert, in no distress HEENT: NC, AT, oropharynx clear, EOMI Lungs: breath sounds normal; no rales, wheezes or rhonchi, breathing comfortably Heart: regular rate and rhythm, no murmurs/rubs/gallops Abdomen: soft, non-tender, non-distended, normal bowel sounds, no rebound or guarding Skin: No rashes noted Extremities: Left AKA?? Neuro: Alert, non-focal, generally weak. Disposition: care home facility Patient Instructions: Dear Mojgan Tabor, You were admitted to [facility] because there were concerns of you having a pneumonia. We treated you forpneumonia with IV Antibiotics and now you are all ready to go back to your halfway care facility.We also performed speech and swallow studies and will continue to not consume anything by mouth If you need to call [facility] for any reason, you may reach us at [phone] and dial [phone] for the greenstone polisher operator. We haven't made any changes to rest of your medications, please continue to take your medications as prescribed before by your doctor. If you have any questions about your medications, please be sure to ask the pharmacy when you cotton picking machine operator your prescription. You may also call your [...] the nearest emergency room or call EMS ([phone]). FOLLOW-UP: Future Appointments May 2:00 PM Appointment with Yana Rm at [facility] Neurology ([phone]) [address] [place] [phone] Saturday June 25, 2022 10:45 AM Appointment with Alden Hurtado at [facility] Otolaryngology ([phone]) [address] [place] [phone] Saturday June 25, 2022 11:00 AM Appointment with Marcella Thomas at [facility] Otolaryngology ([phone]) [address] [place] [phone] Thursday August 11, 2022 9:00 AM Appointment with Yana Rm at [facility] Neurology ([phone]) [address] [place] [phone] Our commercial print salesman will assist you in setting up these appointments. Please remember to answer your phone. It is essential that you keep all of your follow-up appointments and go to your doctors appointments as scheduled. If a follow-up with your primary care provider has not been scheduled, you need toschedule an appointment to follow-up on your hospitalization. If there is a conflict, please call the clinic ahead of time and reschedule the appointment. It was a pleasure taking care of you, Internal Medicine Department [facility] [address] [place] [address] Current Discharge Medication List CONTINUE taking these medications which have NOT CHANGED Instructions Authorizing Provider acetaminophen 325 MG tablet Commonly known as: Tylenol Take 1 (one) tablet by mouth every 6 hours as needed for Fever or Pain Roxanna Coburn MD artificial tears ophthalmic solution Instill 1 (one) drop into both eyes 3 times daily as needed Dante Nuno MD aspirin 81 MG chew tablet Commonly known as: Aspirin Quantity Dispensed: 60 tablet Take 1 (one) tablet by mouth once daily Roxanna Coburn MD atorvastatin 40 MG tablet Commonly known as: Lipitor 1 (one) tablet by Enteral Tube route once daily Dante Nuno MD bisacodyl 10 MG suppository Commonly known as: Dulcolax Insert 1 (one) suppository into the rectum once daily as needed for Constipation Dante Nuno MD cloBAZam 20 MG tablet Commonly known as: Onfi 1 (one) tablet by Enteral Tube route 2 times daily Karime Echavarria MD divalproex DR 500 MG tablet Commonly known as: Depakote Quantity Dispensed: 120 tablet Take 2 (two) tablets by mouth 2 times daily Yana Rm APRN-INFECTION CONTROL PREVENTIONIST folic acid 1 MG tablet Commonly known as: Folvite 1 (one) tablet by Enteral Tube route once daily Dante Nuno MD lacosamide 200 MG tablet Commonly known as: Vimpat 1 (one) tablet by Enteral Tube route 2 times daily Karime Echavarria MD levETIRAcetam 1000 MG tablet Commonly known as: Keppra 2 (two) tablets by Enteral Tube route 2 times daily Karime Echavarria MD polyethylene glycol 3350 17 g packet Commonly known as: Miralax Take 17 (seventeen) g by mouth once daily Roxanna Coburn MD tamsulosin 0.4 MG capsule Commonly known as: Flomax Take 1 (one) capsule by mouth once daily At the same time every day after a meal. Dante Nuno MD thiamine 100 MG tablet Commonly known as: Vitamin B-1 1 (one) tablet by Enteral Tube route once daily Dante Nuno MD Activity: activity as tolerated Diet: TF, NPO Wound Care: As directed Signed: Westley Corley MD 06/03/2022 9:14 AM Nursing staff updated with changes to care plan. Updates to disposition plan discussed with social work and case management. Time spent on discharge: 55 minutes. Time was spent reviewing medical records including laboratory/imaging data, discussing disposition plan with care coordination team and updating nursing staff regarding changes to care plan. Greater than 50% of the time was spent performing care coordination related to hospital discharge. RUCTIONAL TECHNOLOGY TEACHER documented in this encounter Discharge Instructions * Discharge Instructions* Westley Corley MD - 06/03/2022 9:10 AM INSTRUCTIONAL TECHNOLOGY TEACHER Dear Mojgan Tabor, You were admitted to [facility] because there were concerns of you having a pneumonia. We treated you forpneumonia with IV Antibiotics and now you are all ready to go back to your halfway care facility.We also performed speech and swallow studies and will continue to not consume anything by mouth If you need to call [facility] for any reason, you may reach us at [phone] and dial 0 for the greenstone polisher operator. We haven't made any changes to rest of your medications, please continue to take your medications as prescribed before by your doctor. If you have any questions about your medications, please be sure to ask the pharmacy when you cotton picking machine operator your prescription. You may also call your [...] the nearest emergency room or call EMS ([phone]). FOLLOW-UP: Future Appointments May 2:00 PM Appointment with Yana Rm at [facility] Neurology ([phone]) [address] [place] [phone] Saturday June 25, 2022 10:45 AM Appointment with Alden Hurtado at [facility] Otolaryngology ([phone]) [address] [place] [phone] Saturday June 25, 2022 11:00 AM Appointment with Marcella Thomas at [facility] Otolaryngology ([phone]) [address] [place] [phone] Thursday August 11, 2022 9:00 AM Appointment with Yana Rm at [facility] Neurology ([phone]) [address] [place] [phone] Our commercial print salesman will assist you in setting up these appointments. Please remember to answer your phone. It is essential that you keep all of your follow-up appointments and go to your doctors appointments as scheduled. If a follow-up with your primary care provider has not been scheduled, you need toschedule an appointment to follow-up on your hospitalization. If there is a conflict, please call the clinic ahead of time and reschedule the appointment. It was a pleasure taking care of you, Internal Medicine Department [address] [address] RUCTIONAL TECHNOLOGY TEACHER documented in this encounter Medications at Time of Discharge Medication Sig Dispensed Refills Start Date End Date folic acid (Folvite) 1 MG tablet 1 (one) tablet by Enteral Tube route once daily 04/01/2022 thiamine (Vitamin B-1) 100 MG tablet 1 (one) tablet by Enteral Tube route once daily 04/01/2022 acetaminophen (Tylenol) 325 MG tablet Take 1 (one) tablet by mouth every 6 hours as needed for Fever or Pain 01/07/2022 06/15/2022 artificial tears ophthalmic solution Instill 1 (one) drop into both eyes 3 times daily as needed 03/31/2022 11/09/2022 aspirin (Aspirin) 81 MG chew tablet Take 1 (one) tablet by mouth once daily 60 tablet 2 01/08/2022 06/15/2022 atorvastatin (Lipitor) 40 MG tablet 1 (one) tablet by Enteral Tube route once daily 04/01/2022 02/28/2023 bisacodyl (Dulcolax) 10 MG suppository Insert 1 (one) suppository into the rectum once daily as needed for Constipation 03/31/2022 07/21/2022 cloBAZam (Onfi) 20 MG tablet 1 (one) tablet by Enteral Tube route 2 times daily 05/14/2022 11/11/[address] (Depakote) 500 MG tablet Take 2 (two) tablets by mouth 2 times daily 120 tablet 5 05/27/2022 06/15/2022 docusate sodium (Colace) 150 MG/15ML solution Take 15 mL by mouth once daily as needed for Constipation 04/07/2022 01/14/2023 lacosamide (Vimpat) 200 MG tablet 1 (one) [...] 5 05/16/2019 01/14/2023 levETIRAcetam (KEPPRA) 1000 MG tabletIndications:Lo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, intractable, without status epilepticus (HCC) Take 2 tablets by mouth 2 times daily for 30 days 120 tablet 5 02/15/2019 01/14/2023 levETIRAcetam (KEPPRA) 750 MG tabletIndications:Par tial 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, intractable, without status epilepticus (HCC) Take 3 tablets by mouth 2 times daily for 30 days 180 tablet 06/10/2018 01/14/2023 polyethylene glycol 3350 (Miralax) 17 g packet Take 17 (seventeen) g by mouth once daily 01/08/2022 06/15/2022 tamsulosin (Flomax) 0.4 MG capsule Take 1 (one) capsule by mouth once daily At the same time every day after a meal. 04/01/2022 06/15/2022 Valproate Sodium (Valproic Acid) 250 MG/5ML Take 5 mL by mouth as directed 05/25/2022 06/28/2022 documented as of this encounter Progress Notes * Gaurav Juarez MSW - 06/03/2022 12:12 PM CST Facility Transfer Note Level of Care: Actual level of care at discharge: Jail - Skilled Facility Facility Name: (include name of person confirming admission): [facility] Made Aware of Special Needs (if applicable): Yes RN Call Report to:[phone] and ask for A perez nurse Fax D/C Orders to:[phone] Transportation (company and number): [id number] [id number] Certificate of Medical Necessity rationale: Yes Date/time of transfer: 06/03 @ 2:00PM Accepting MD and contact #: Completed and Signed [id number] (if applicable): Family/Other Notified of Transfer (name/phone): Sister Adriane notified Authorization Skilled Care: Authorization for Transportation: Verified Qualifying Stay(Skilled Only): YES Comments: Name/Phone number: Gaurav Kike [facility] [phone] RUCTIONAL TECHNOLOGY TEACHER * Zhang Gee RN - 06/03/2022 11:26 AM CST Problem: Skin Integrity Goal: Skin integrity is maintained or improved Outcome: Progressing RUCTIONAL TECHNOLOGY TEACHER * Aylin Spangler - 06/02/2022 10:26 PM CST Problem: Fall Risk Goal: Fall risk and fall related injury risk are minimized (interventions related to the fall risk can be found in the flowsheet documentation) Outcome: Progressing Problem: Skin Integrity Goal: Skin integrity is maintained or improved Outcome: Progressing Problem: Impaired Gas Exchange Goal: Resp rate/effort will be within specified limits Outcome: Progressing Problem: Pain/Discomfort Goal: Patient exhibits reduced pain/discomfort as evidenced by pain scores Outcome: Progressing Goal: Patient uses pharmacological and non-pharmacological pain management strategies. Outcome: Progressing Goal: Patient verbalizes acceptable level of pain relief and ability to engage in desired activity. Outcome: Progressing Problem: Elimination Goal: Elimination patterns are normal or improving Outcome: Progressing Problem: Nutrient: Increased nutrient needs (specify) Goal: Total intake will meet estimated nutrient needs Outcome: Progressing Problem: Balance Goal: STG - Maintains static sitting balance with upper extremity support. Outcome: Progressing RUCTIONAL TECHNOLOGY TEACHER * Karla Ely RN - 06/02/2022 4:50 PM CST Problem: Fall Risk Goal: Fall risk and fall related injury risk are minimized (interventions related to the fall risk can be found in the flowsheet documentation) Outcome: Progressing Problem: Skin Integrity Goal: Skin integrity is maintained or improved Outcome: Progressing Problem: Impaired Gas Exchange Goal: Resp rate/effort will be within specified limits Outcome: Progressing Problem: Pain/Discomfort Goal: Patient exhibits reduced pain/discomfort as evidenced by pain scores Outcome: Progressing Goal: Patient uses pharmacological and non-pharmacological pain management strategies. Outcome: Progressing Goal: Patient verbalizes acceptable level of pain relief and ability to engage in desired activity. Outcome: Progressing Problem: Elimination Goal: Elimination patterns are normal or improving Outcome: Progressing Problem: Nutrient: Increased nutrient needs (specify) Goal: Total intake will meet estimated nutrient needs Outcome: Progressing Problem: Balance Goal: STG - Maintains static sitting balance with upper extremity support. Outcome: Progressing RUCTIONAL TECHNOLOGY TEACHER * Westley Corley MD - 06/02/2022 3:49 PM CST U HOSPITALIST PROGRESS NOTE Age/Sex: 62 year old male Hospital Day: 3 Admission Date: 05/30/2022 Subjective: Patient was seen and assessed at bedside this morning. He is alert and oriented to person and place. He states he is doing much better, no shortness of breath Objective: Patient Vitals for the past 24 hrs: Temp Pulse Resp BP SpO2 06/02/22 1104 98 ??F (36.7 ??C) 88 18 146/82 96 % 06/02/22 0718 98.1 ??F (36.7 ??C) 82 18 152/86 97 % 06/02/22 0428 98.4 ??F (36.9 ??C) 77 18 168/90 98 % 06/02/22 0055 98 ??F (36.7 ??C) 81 18 143/88 94 % 06/01/22 1956 98.5 ??F (36.9 ??C) 82 20 144/82 96 % 06/01/22 1616 98.5 ??F (36.9 ??C) 97 20 149/81 95 % Physical exam: General: alert, in no distress HEENT: NC, AT, oropharynx clear, EOMI Lungs: breath sounds normal; no rales, wheezes or rhonchi, breathing comfortably Heart: regular rate and rhythm, no murmurs/rubs/gallops Abdomen: soft, non-tender, non-distended, normal bowel sounds, no rebound or guarding Skin: No rashes noted Extremities: Left AKA Neuro: Alert, non-focal, generally weak. Recent lab reviewed as below: Recent Labs Component Name 06/02/22 0453 06/01/22 0538 05/31/22 0529 03/09/22 0135 03/08/22 1455 WBC 6.9 7.0 13.9* - 20.8* PLATELET - - - - Occasional* - = values in this interval not displayed. Recent Labs Component Name 06/02/22 0453 06/01/22 0538 05/31/22 0529 POTASSIUM 4.7* 4.0 4.6* CO2 BUN 8 7 10 CREATININE 0.84 0.68* 0.64* GLUCOSE 68* 112 76 CALCIUM 9.1 8.6 9.1 Recent Labs Component Name 05/11/22 1309 03/11/22 1059 03/05/22 1110 INR 1.0 1.2 1.0 No results found for: CK, TROPONIN, [id number], CKMBRI TSH Date Value Ref Range Status 05/15/2019 1.344 0.350 - 4.940 uIU/mL Final Medications: 0.9% NaCl, 3 mL, q8h aspirin, 81 mg, QDAY atorvastatin, 40 mg, QDAY enoxaparin, 40 mg, QDAY folic acid, 1 mg, QDAY lacosamide, 200 mg, BID levETIRAcetam, 2,000 mg, BID valproic acid, 1,000 mg, BID vancomycin, 1,500 mg, q12h vancomycin (VANCOCIN) IV dose per pharmacy, , DIRECTED Assessment and Plan: Aspiration pneumonia - 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 - CT finding of debris in the airway and bilateral pneumonia. - Currently patient on room air with no respiratory distress. - s/p zosyn&vanc(MRSA PCR +) while inpatient, Procal negative, will transition to IV Ctx for finishing 5 days of IV Abx - follow-up on final chest x-ray read Alzheimer Disease: - Patient is on pureed diet at SNF. Speech therapy recommending repeat MBS. - Speech therapy evaluation. - Patient evaluated by ENT last admission 05/14/2022. It appears that patient might benefit from surgical intervention, to be discussed further as outpatient (06/25/2022). - s/p PEG tube 03/26/2022. - started tube feed. - Dietary consult for tube feed recommendations. ? Epilepsy: Continue home Depakote, lacosamide and Keppra History of CVA: Continue aspirin and statin History of LLE ischemia S/P left AKA by vascular surgery 03/15/2022 ?? DVT PPx: Lovenox Code Status: Full code Disposition: back to same SNF after swallow study. COVID screening ordered per social worker psychiatric instructions Westley Corley MD Nursing staff updated with changes to care plan. Updates to disposition plan discussed with social work and case management. Approximately 50 minutes was spent reviewing medical records including laboratory/imaging data, discussing disposition plan with care coordination team and updating nursing staff regarding changes tocare plan. Greater than 50% of the time was spent performing care coordination. RUCTIONAL TECHNOLOGY TEACHER * Marcella Calderon SLP - 06/02/2022 2:00 PM CST Images from the original note were not included. [facility] Modified Barium Swallow Study Patient: Mojgan Tabor Med Record Number [id number] Date of : 1960 Age: [age] year old PPE: PPE donned by MEDICAL INSURANCE CLERK during this session - N95 mask and gloves. Referring Physician: Dr. Corley Diagnosis: Patient Active Problem List: Seizure (CMS/HCC) Cerebrovascular [...] on chronic respiratory failure with hypoxia (CMS/HCC) Past Medical History: Diagnosis Date ??? CVA (cerebral vascular accident) (CMS/HCC) ??? HTN (hypertension) ??? Seizure (CMS/HCC) Impression: Pt presents with moderate-severe oropharyngeal dysphagia characterized by delayed A-P transit, premature spillage of liquid trials, severely reduced tongue base retraction, incomplete laryngeal vestibule closure during the swallow with trace aspiration of thin liquids and deep laryngeal penetration of nectar thickened liquids without any sensorimotor response. MEDICAL INSURANCE CLERK also visualized whatappeared to be a Zenker's diverticulum in the upper portion of the esophagus which impacted Pt's bolus clearance. Given Pt's persistent oropharyngeal dysphagia with continued high risk for aspiration, will recommend Pt remain NPO with TF's via his existing PEG. Given little to no improvement in Pt's swallow function since previous MBS in February of last year and given limited bolus clearance through the esophagus, consideration for resuming a PO diet does not appear appropriate. MEDICAL INSURANCE CLERK will d/c atthis time. Swallow Recommendations: ??? Liquids: NPO ??? Diet: NPO Discharge Recommendation: Return to SNF, ongoing MEDICAL INSURANCE CLERK services not appropriate given Pt's elevated risk for aspiration with PO intake. Speech therapy is not recommended at this time. Goals noted below have been met. Assessment: Procedure: This procedure was performed in conjunction with radiology using lateral views. The patient was given thin liquid, nectar thick liquid and pudding consistency . Oral Stage: ?? Lip Closure: interlabial escape ?? Bolus Preparation/Mastication: did not trial solid due to safety issue ?? Bolus Transport/Lingual Motion: repetitive/disorganized tongue motion ?? Oral Residue: trace residue lining oral structures; Location: palate tongue ?? Initiation of Pharyngeal Swallow: bolus head in pyriforms with thin liquids Pharyngeal Stage: ?? Soft Palate Elevation: no bolus between soft palate/pharygneal wall ?? Laryngeal Elevation: partial superior movement of thyroid cartilage/partial approximation of arytenoids to epiglottic petiole ?? Anterior Hyoid Excursion: partial anterior movement ?? Epiglottic Movement: no inversion ?? Laryngeal Vestibule Closure: incomplete: narrow column of contract in laryngeal vestibule ?? Pharyngeal stripping wave: present-diminished ?? Pharyngeal Contraction: patient in bed, unable to complete in A-P ?? Pharyngoesophageal Segment Opening: minimal distension/minimal duration with marked obstruction of flow ?? Tongue Base Retraction: wide column of contrast or air between TB and PW ?? Pharyngeal Residue: minimal to no pharyngeal clearance; Location: valleculae, residue also notedin the pyriform sinuses but not as severe as vallecular residue Esophageal Stage: ?? Esophageal clearance upright position: patient in bed, unable to complete in A-P or able to do esophogeal scan Thin Fluids: Aspiration: Amount: Trace Timing: During swallow Cough: Absent PAS Score: 8, Material enters the airway, passess below the vocal folds & no effort is made to eject (i.e., silent aspiration) [place]-thick Fluids: Penetration: Amount: Trace Timing: During swallow Cough: Present PAS Score: 5, Material enters the airway, contacts the vocal folds & is NOT ejected from the airway Swallowing Function: Moderate-severe oropharyngeal dysphagia, severe esophageal dysphagia Education: Patient instructed in recommedations and indicated understanding. Guidelines were posted (inpatient only): yes Informed Consent to Treatment: Plan of care including recommended therapy, goals and frequency, as well as potential risks and benefits of treatment/assessment explained to the patient who understands and agrees to proceed. Goals: Short Term Goal(s): Pt will tolerate the least restrictive diet Fci Goal(s): Patient to be independent/baseline with functional swallow and be able [facility]. Marcella Scherer M.S., [facility]-MEDICAL INSURANCE CLERK Speech Language Pathologist [phone] RUCTIONAL TECHNOLOGY TEACHER * China Mosley RN - 06/02/2022 6:36 AM CST Problem: Pain/Discomfort Goal: Patient exhibits reduced pain/discomfort as evidenced by pain scores Outcome: Progressing Goal: Patient uses pharmacological and non-pharmacological pain management strategies. Outcome: Progressing Goal: Patient verbalizes acceptable level of pain relief and ability to engage in desired activity. Outcome: Progressing RUCTIONAL TECHNOLOGY TEACHER * Westley Corley MD - 06/01/2022 5:00 PM CST U HOSPITALIST PROGRESS NOTE Age/Sex: 62 year old male Hospital Day: 2 Admission Date: 05/30/2022 Subjective: Patient was seen and assessed at bedside this morning. He is alert and oriented to person and place. Objective: Patient Vitals for the past 24 hrs: Temp Pulse Resp BP SpO2 06/01/22 1616 98.5 ??F (36.9 ??C) 97 20 149/81 95 % 06/01/22 1100 98.1 ??F (36.7 ??C) 96 20 132/72 94 % 06/01/22 0800 98 ??F (36.7 ??C) 92 20 140/78 95 % 06/01/22 0449 98.1 ??F (36.7 ??C) 87 20 137/74 96 % 05/31/22 2349 98.2 ??F (36.8 ??C) 82 18 132/76 95 % 05/31/22 2003 97.9 ??F (36.6 ??C) 83 20 109/63 96 % Physical exam: General: alert, in no distress HEENT: NC, AT, oropharynx clear, EOMI Lungs: breath sounds normal; no rales, wheezes or rhonchi, breathing comfortably Heart: regular rate and rhythm, no murmurs/rubs/gallops Abdomen: soft, non-tender, non-distended, normal bowel sounds, no rebound or guarding Skin: No rashes noted Extremities: Left AKA Neuro: Alert, non-focal, generally weak. Recent lab reviewed as below: Recent Labs Component Name 06/01/22 0538 05/31/22 0529 05/30/22 1538 03/09/22 0135 03/08/22 1455 WBC 7.0 13.9* 4.6 - 20.8* PLATELET - - - - Occasional* - = values in this interval not displayed. Recent Labs Component Name 06/01/22 0538 05/31/22 0529 05/30/22 1538 POTASSIUM 4.0 4.6* 4.1 CO2 24 23 26 BUN 7 10 13 CREATININE 0.68* 0.64* 0.47* GLUCOSE 112 76 73 CALCIUM 8.6 9.1 8.1* Recent Labs Component Name 05/11/22 1309 03/11/22 1059 03/05/22 1110 INR 1.0 1.2 1.0 No results found for: CK, TROPONIN, [id number], CKMBRI TSH Date Value Ref Range Status 05/15/2019 1.344 0.350 - 4.940 uIU/mL Final Medications: 0.9% NaCl, 3 mL, q8h aspirin, 81 mg, QDAY atorvastatin, 40 mg, QDAY enoxaparin, 40 mg, QDAY folic acid, 1 mg, QDAY lacosamide, 200 mg, BID levETIRAcetam, 2,000 mg, BID piperacillin-tazobactam, 3.375 g, q8h valproic acid, 1,000 mg, BID vancomycin, 1,500 mg, q12h vancomycin (VANCOCIN) IV dose per pharmacy, , DIRECTED Assessment and Plan: Aspiration pneumonia - 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 - CT finding of debris in the airway and bilateral pneumonia. - Currently patient on room air with no respiratory distress. - continue zosyn&vanc(MRSA PCR +) while inpatient, can transition to p.o. medication when closer to discharge. Check procalcitonin. Repeat chest x-ray to follow up infiltrates. Alzheimer Disease: - Patient is on pureed diet at [facility]. Speech therapy recommending repeat MBS. - Speech therapy evaluation. - Patient evaluated by ENT last admission 05/14/2022. It appears that patient might benefit from surgical intervention, to be discussed further as outpatient (06/25/2022). - s/p PEG tube 03/26/2022. - started tube feed. - Dietary consult for tube feed recommendations. ? Epilepsy: Continue home Depakote, lacosamide and Keppra History of CVA: Continue aspirin and statin History of LLE ischemia S/P left AKA by vascular surgery 03/15/2022 ?? DVT PPx: Lovenox Code Status: Full code Disposition: back to same SNF after stablized?? Westley Corley MD Nursing staff updated with changes to care plan. Updates to disposition plan discussed with social work and case management. Approximately 60 minutes was spent reviewing medical records including laboratory/imaging data, discussing disposition plan with care coordination team and updating nursing staff regarding changes tocare plan. Greater than 50% of the time was spent performing care coordination. RUCTIONAL TECHNOLOGY TEACHER * Gaurav Juarez MSW - 06/01/2022 4:58 PM CST SW aware [facility] SW to follow for when this pt will be med ready to discharge back to [place]. CLARITA Fang 06/01/2022 RUCTIONAL TECHNOLOGY TEACHER * Madie Rodarte RN - 06/01/2022 4:00 PM CST Case Management Initial Assessment Case Management screen completed & Welcome Letter given. Anticipated Discharge Date: 06/02/22 Transportation at Discharge: Medicaid Provider Anticipated level of care at discharge: Jail - Medicaid Anticipated level of care provider: [facility] Prior to admission level of care: Jail - Medicaid Prior to admit provider: [facility] Discharge Goals and Plans: Patient Goals: [facility] Plans: Discharge needs identified. See progress notes for details. Case Management to follow for discharge planning. Upon discharge or transfer to a post acute facility should rehospitalization, home health, rehabilitation, or any other follow up care be required, patient's preference is to stay within the [facility] and its affiliates.: Yes Lives with: Other (Comment) Physical Limitations: Wheelchair Bound Requires Assistance With: Mobility;Dressing;Toileting;Hygiene;Transfers;Housekeeping;Shopping;Medication Administration;Meal Preparation Insurance: Payer/Plan Subscriber Name Rel Member # Group # [facility] * MOJGAN TABOR Self [id number] [address] Readmission: No READMISSION RISK SCORE is 20 at 4:09 PM 06/01/2022. Met with sister Comments: Discharge pending Xray. Pt is a resident at [facility]. and will need to return with IVAB for aspiration pneumonia. Patient sister in agreement for his return there when medically ready. 62 year old male with history of CVA 2014, HTN, HLD, early-onset Alzheimer's, refractory epilepsy, status post PEG tube 03/26/2022 who presents to [facility] ER from SNF on 05/30/2022 with complaints of lethargy, new oxygen requirement and productive cough for last 24 hours. Family Support (name and phone): Extended Emergency Contact Information Primary Emergency Contact: Adriane Hilliard Mobile Relation: Sister Director Of Occupational Therapy needed? No Secondary Emergency Contact: Amarjit Tabor [facility] Relation: Brother Patient or order entry representative requests care coordination reach out to family or caregiver listed above regarding discharge planning and at time of discharge? No Patient/Family provided with list of resources? No Preferred Provider / High Quality Network List given?: No Reason for provider choice: Pt. choice - previous provider Transportation to MD appointments: Medicaid Provider Equipment at Home: Wheelchair-Standard;Walker-2 Wheeled Additional equipment needed at home but does not have: None indicated at this time. PCP: Joyce Luevano APRN-INFECTION CONTROL PREVENTIONIST Follow-up Appointment: TBD by treatment team Pharmacy benefit: Yes Medication affordability concerns: No Hunger Screening: Within the past 12 months, you worried that your food would run out before you got the money to buymore.: Never true Within the past 12 months, the food you bought just didn't last and you didn't have money to get more.: Never true Food Bank Resources Provided: Not offered to the patient Credit Review Manager Referral: Yes Will continue to follow. For any questions or needs please contact: Gastroenterology Teacher Name/Phone number: Madie Rodarte RN [phone] RUCTIONAL TECHNOLOGY TEACHER * Marcella Calderon, MEDICAL INSURANCE CLERK - 06/01/2022 2:27 PM CST [facility] Physical Medicine and Rehabilitation Swallow Treatment Patient: Mojgan Tabor Med Record Number: [id number] Date of : 1960 Age: [age] year old PPE: PPE worn by staff: mask - N95;gloves PPE worn by patient: gown - patient, clean Impressions: Pt with improved PO tolerance during MEDICAL INSURANCE CLERK visit this date without any clinical signs ofaspiration with puree or nectar thickened liquids. Given Pt's history of silent aspiration during previous MBS in February of last year, will recommend a repeat MBS to further evaluate Pt's swallow function and determine if he is safely able to initiate a PO diet. Recommendations: Diet Liquids Recommendation: NPO Diet Solids Recommendation: NPO Recommended Form of Meds: NPO;Feeding Tube Recommended Tests/Consults: Recommendations: Dysphagia Treatment;Modified Barium Swallow Study Discharge Recommendations: Patient will benefit from inpatient multidisciplinary therapies Speech therapy is recommended to improve swallow function. SUBJECTIVE: Patient Goals: None stated Pain Assessment: Pain Rating Score #: 0 Follow-up for pain: No follow-up for pain indicated and patient agreed to proceed with treatment OBJECTIVE: Level of Consciousness: alert Orientation Level: oriented to person Positioning: Upright in bed Respiratory Status: room air Swallow Trials: Thin Liquid: Presentation: Cup-Assisted Oral: Within Functional Limits Pharyngeal: Delayed Swallow;Decreased Laryngeal Elevation (wet vocalizations after the swallow, question silent aspiration) [place] Thick Liquid: Presentation: Cup-Assisted Oral: Within Functional Limits Pharyngeal: Delayed Swallow;Decreased Laryngeal Elevation Puree: Presentation: Spoon-Assisted Oral: Within Functional Limits Pharyngeal: Delayed Swallow;Decreased Laryngeal Elevation Assessment: Risk For Aspiration: Moderate Primary Diagnostic Impression - Oral: Mild Primary Diagnostic Impression - Pharyngeal: Mild;Moderate Treatment/Education/Interventions: While performing MEDICAL INSURANCE CLERK, Patient was instructed in: results of swallow evaluation and goals of treatment . Patient demonstrated Poor understanding of instructions given. INFORMED CONSENT TO TREATMENT: Plan of care including recommended therapy, goals and frequency, discussed with patient who understands and agrees to proceed. Short Term Goals Patient will participate in an instrumental swallow assessment as appropriate. [facility]ci Goal (s): Patient to be independent/baseline with functional mobility and self care and be able to safely discharge to prior level of care. Plan: Continue NPO status with TF's via PEG with plan for MBS tomorrow (06/02) Marcella Scherer M.S., [facility]-MEDICAL INSURANCE CLERK Speech Language Pathologist [phone] RUCTIONAL TECHNOLOGY TEACHER * Anna Lofton, PharmD - 06/01/2022 1:14 PM CST Vancomycin Per Pharmacy - Follow-Up Note Subjective Mojgan Tabor is a 62 year old male receiving vancomycin dosed per pharmacy. Indication for anti-infective therapy: suspected infection Site of anti-infective therapy: Lower respiratory. Goal trough 15-20 mcg/mL. Objective Day of treatment: 3 Current dosing regimen: 1250 mg, q 8 hr. Weight: 59.5 kg (131 lb 2.8 oz) Estimated Creatinine Clearance: 96 mL/min (A) (by C-G formula based on SCr of 0.68 mg/dL (L)). Ht Readings from Last 1 Encounters: 06/01/22 5' 8 (1.727 m) Recent Labs Component Name 06/01/22 0538 05/31/22 0529 05/30/22 1538 03/19/22 0203 03/18/22 0606 03/16/22 0619 03/15/22 0638 CREATININE 0.68* 0.64* 0.47* - 0.56* - - WBC 7.0 13.9* 4.6 - - - - VANCTROUGH 35.3* - - - <2.5* - 15.1 - = values in this interval not displayed. Radiocontrast within 72 hours The 3 most recent administrations since 05/29/2022 are shown below each listed medication. Other Order Route Dose Action Date iopamidol (Isovue 370) contrast ADS Med 100 mL $ Given - Contrast 05/30/2022 Vancomycin Administrations from MAR (last 72 hours) Date/Time Action Medication Dose Rate 06/01/22 1054 $ New Bag/Syringe vancomycin (Vancocin) 1,250 mg in 250 mL NaCl IVPB Premix 1,250 mg 200 mL/hr 06/01/22 0156 $ New Bag/Syringe vancomycin (Vancocin) 1,250 mg in 250 mL NaCl IVPB Premix 1,250 mg 200 mL/hr 05/31/22 1803 $ New Bag/Syringe vancomycin (Vancocin) 1,250 mg in 250 mL NaCl IVPB Premix 1,250 mg 200 mL/hr 05/31/22 1010 $ New Bag/Syringe vancomycin (Vancocin) 1,250 mg in 250 mL NaCl IVPB Premix 1,250 mg 200 mL/hr 05/31/22 0225 $ New Bag/Syringe vancomycin (Vancocin) 1,250 mg in 250 mL NaCl IVPB Premix 1,250 mg 200 mL/hr 05/30/22 1602 $ New Bag/Syringe vancomycin (Vancocin) 1,500 mg in 500 mL NaCl IVPB Premix 1,500 mg 333.33 mL/hr Assessment Target trough:15-20 mcg/mL The vancomycin serum level reported above was drawn 3.6 hours after the previous dose was administered. Using pharmacokinetic calculations, the extrapolated true trough is approximately 22.6 mcg/mL Patient's trough level is above the therapeutic range on the current regimen. Ke = 0.1011 t1/2 = 6.9 Vd = 48 S.Cr is stable at this time. Plan Dosing: Will adjust dose to 1500 mg q12hr. This regimen is predicted to provide a trough = 15.0 mcg/mL. Monitoring: Will obtain a vancomycin trough level prior to the 4th dose on 06/03 at 1000 and adjust regimen if appropriate. Will continue to monitor patient's renal function. Please contact the [facility] pharmacy department ([phone]) with any questions. Anna Lofton, Saiv 06/01/2022 1:10 PM Resources: Vancomycin Protocol RUCTIONAL TECHNOLOGY TEACHER * Sole Saravia, PT - 06/01/2022 10:51 AM CST [facility] Physical Medicine and Rehabilitation Physical Therapy Initial Evaluation Note Patient: Mojgan Tabor [facility] Record Number: [id number] Date of : 1960 Age: [age] year old PPE worn by staff: mask - procedural;gown - disposable;gloves PPE worn by patient: gown - patient, clean;socks - clean Discharge Recommendation: Patient will benefit from multidisciplinary inpatient therapies. In addition to the 1:1 evaluation of the patient, additional eval time was spent completing the chart review prior to the assessment, completing the multidisciplinary plan of care and education plan post evaluation and communicating results of the eval to other treatment team members. Nurse contacted regarding patient status and/or discharge plan. Physician Orders: Evaluation and Treat PRECAUTIONS: Weight Bearing Status: (no restriction) Activity Level: Up ad daniela Other Precautions: fall, isolation DIAGNOSIS: Patient Active Problem List: Seizure (CMS/HCC) Cerebrovascular accident (CMS/HCC) Hyperlipidemia Hypertension Insomnia Low back pain Osteoporosis Truncal ataxia Therapeutic procedure Seizures ([facility]/HCC) Alcohol abuse, uncomplicated Benign neoplasm of prostate Epilepsy, unspecified, not intractable, without status epilepticus (CMS/HCC) Difficulty in walking, not elsewhere classified Muscle weakness (generalized) Other specified rheumatoid arthritis, unspecified site (CMS/HCC) Syncope and collapse Alzheimer's disease with early onset ([facility]/HCC) Cognitive communication deficit COVID-19 Dysphagia, oropharyngeal phase [...] on chronic respiratory failure with hypoxia (CMS/HCC) Past Medical History: Diagnosis Date ??? CVA (cerebral vascular accident) (CMS/HCC) ??? HTN (hypertension) ??? Seizure (CMS/HCC) SUBJECTIVE: Subjective: pt states he came from nursing facility called [facility] PATIENT GOALS: Patient's Primary Concern: none gathered, agreeable to PT Home Situation: Type of Residence: Jail (pt states he did not get a chance to get therapy at the facility) Equipment at Home: Wheelchair-Standard;Walker-2 Wheeled (pt denies having prosthesis for LAKA) Prior Level of Functioning: Mobility: With Physical Assistance;Wheelchair Bound Fallen Within 6 Mos: (pt denies) Vision: Other (Comment) (left visual field deficit) Hearing Exceptions: Hearing concerns Pain Assessment: Pain Rating Score #: (denies) Follow-up for pain: No follow-up for pain indicated and patient agreed to proceed with treatment OBJECTIVE: At start of therapy session, patient found in bed and with bed alarm on. General Appearance: pt in no distress on room air LDAs: IV's: Peripheral line, Catheter and PEG Tube Edema: no edema noted in R lower extremities and L residual limb Vitals: (*Assess the 3 levels of oxygen saturations both for room air and 02 unless rest on room air is 88% or less). Rest BP: 155/94 (111) HR: 100 Sp02 93 Room Air Post Activity BP: HR: 93 Sp02 96 Room Air Observations: denies dizziness, appears in no distress with mobility Mental Status/Cognition: Level of Consciousness-Adult: Alert;Eyes Open Spontaneously Orientation Level: Oriented to Person;Oriented to Place, disoriented to time Cognition: Follows one step commands;Processing-delayed;Judgement-decreased;Safety awareness-decreas ed;Memory impairment-short term;Memory impairment-halfway Attention Span: Difficulty attending to directions Memory: Decreased recall of recent events;Decreased short term memory;Decreased dispatcher chief oil memory Following Commands: Follows one step commands with increased time Awareness of Errors: Assistance required to correct errors made;Assistance required to identify errors made;Decreased awareness of deficits Problem Solving: Assistance required to identify errors made;Assistance required to implement solutions;Assistance required to generate solutions Vision: left visual field deficit ROM: RLE: PROM WFL LLE: PROM in hip WFL Strength: RLE:hip grossly 2-/5, knee ext 2/5, knee flex 2-/5, ankle PF/DF 0/5 LLE: hip grossly 2-/5 Tone: RLE: no abnormal tone noted LLE: no abnormal tone noted Coordination: RLE: not tested LLE: not tested Sensation: RLE: withdraws to pain LLE: withdraws to pain Perception: Visual/Motor Mobility: A gait belt and non-slip socks were used for all out of bed activity this date. Bed Mobility: Rolling: Maximal Assistance to Left;Maximal Assistance to Right Supine to Sit: Total Assistance with HOB in semi-fowlers position Sit to Supine: Total Assistance Transfers: Sit to Stand: Activity Does Not Occur Stand to Sit: Activity Does Not Occur Chair to Bed: Activity Does Not Occur Bed to Chair: Activity Does Not Occur Balance: Balance Scales/Tests Used: Sitting: Static/Dynamic Sitting - Static: Poor Sitting - Dynamic: Poor max assist to maintain upright sitting on edge of bed with poor balance reaction as to righting andprotection ext ACTIVITY TOLERANCE: Patient's activity tolerance: poor plus TREATMENT/INTERVENTIONS: evaluation, monitoring of vitals and bed positioning Modified [place]: Current Modified [place] Score: 5 EDUCATION: While performing PT, Patient was instructed in:functional mobility training, safety awareness/fall precautions , discharge planning, use of call light, purpose of PT Presented to patient who demonstrates Questionable understanding of instructions given. INFORMED CONSENT TO TREATMENT: Plan of care is discussed but patient with questionable understanding. ASSESSMENT: Patient would benefit from additional Physical Therapy sessions to achieve the following functionalgoals to enhance independence. Short Term Goals: Goal Formation Patient unable to participate in goal formulation Patient will perform bed mobility as to rolling with moderate assistance Patient will perform bed mobility as to supine to/from sit with moderate assistance Patient will be able to maintain static sitting balance with UE support with moderate assist x 10 mins [facility]ci Goal(s): Patient to discharge to appropriate next level of inpatient care. Equipment Issued: none Plan: Plan: Transfer training Bed mobility training Balance training Energy conservation techniques Safety awareness If patient is discharged from the facility, this note serves as a discharge summary if further physical therapy visits did not occur. Refer to filed flowsheet for further details. Following therapy session, patient left in bed, with bed alarm on , with call light within reach, lines intact, HOB elevated >30 degrees as per precautions. RUCTIONAL TECHNOLOGY TEACHER * Evelin Robles RN - 06/01/2022 10:01 AM CST Problem: Fall Risk Goal: Fall risk and fall related injury risk are minimized (interventions related to the fall risk can be found in the flowsheet documentation) Outcome: Progressing Problem: Impaired Gas Exchange Goal: Resp rate/effort will be within specified limits Outcome: Progressing RUCTIONAL TECHNOLOGY TEACHER * Loretta Trejo RN - 06/01/2022 1:01 AM CST Problem: Fall Risk Goal: Fall risk and fall related injury risk are minimized (interventions related to the fall risk can be found in the flowsheet documentation) Outcome: Progressing Problem: Skin Integrity Goal: Skin integrity is maintained or improved Outcome: Progressing Problem: Impaired Gas Exchange Goal: Resp rate/effort will be within specified limits Outcome: Progressing RUCTIONAL TECHNOLOGY TEACHER * Marcella Calderon SLP - 05/31/2022 1:52 PM CST [facility] Physical Medicine and Rehabilitation Bedside Swallow Assessment Patient: Mojgan Tabor [facility] Record Number: [id number] Date of : 1960 Age: [age] year old Patient Active Problem List: Seizure (CMS/HCC) Cerebrovascular [...] on chronic respiratory failure with hypoxia (CMS/HCC) Past Medical History: Diagnosis Date ??? CVA (cerebral vascular accident) (CMS/HCC) ??? HTN (hypertension) ??? Seizure (CMS/HCC) In addition to the 1:1 evaluation of the patient, additional eval time was spent completing the chart review prior to the assessment, completing the multidisciplinary plan of care and education plan post evaluation and communicating results of the eval to other treatment team members. PPE: PPE worn by staff: mask - N95;gloves PPE worn by patient: gown - patient, clean Impressions: Pt continues to present with suspected moderate-severe pharyngeal dysphagia with sluggish pharyngeal swallow response and wet vocalizations after trials of thin liquid and puree. Given Pt's history of dysphagia with silent aspiration during MBS during a previous admission in February, will recommend Pt remain NPO with ongoing assessment and potential repeat MBS if Pt demonstrates candidacy. Recommendations: Diet Liquids Recommendation: NPO Diet Solids Recommendation: NPO Recommended Form of Meds: NPO;Feeding Tube Recommended Tests/Consults: Recommendations: Dysphagia Treatment Discharge Recommendations: Patient will benefit from inpatient multidisciplinary therapies Speech therapy is recommended to improve swallow function. SUBJECTIVE: Patient Goals: I'm just watching the game Pt watching [place] football at time of visit Pain Assessment: Pain Rating Score #: 9 Pain Location : Leg Follow-up for pain: Yes, informed nurse/physician about pain issue and patient agreed to proceed with treatment OBJECTIVE: Level of Consciousness: alert Orientation Level: oriented to person Positioning: Upright in bed Respiratory Status: room air Oral/Motor: Dentition: (Pt missing some upper dentition upon exam) Oral Hygiene : Xerostomic (dry mouth) Labial/Facial: Within Functional Limits Tongue: Within Functional Limits Vocal Quality: Within Functional Limits Velopharyngeal Status: Impaired Oral Motor Coordination: Within Functional Limits Controls Secretions: Yes Swallow Trials: Thin Liquid: Presentation: Cup-Assisted Oral: Within Functional Limits Pharyngeal: Delayed Swallow;Decreased Laryngeal Elevation (wet vocalizations after the swallow, question silent aspiration) Puree: Presentation: Spoon-Assisted Oral: Within Functional Limits Pharyngeal: Delayed Swallow;Decreased Laryngeal Elevation (multiple swallows per bolus, wet vocalizations after the swallow.) Assessment: Risk For Aspiration: Severe Primary Diagnostic Impression - Oral: Mild Primary Diagnostic Impression - Pharyngeal: Moderate;Severe Education/Interventions: While performing MEDICAL INSURANCE CLERK, Patient was instructed in: results of swallow evaluation and goals of treatment . Patient demonstrated Poor understanding of instructions given. Nurse contacted regarding results of swallow evaluation and recommendations. INFORMED CONSENT TO TREATMENT: Plan of care including recommended therapy, goals and frequency, discussed with patient who understands and agrees to proceed. Short Term Goals Patient will participate in an instrumental swallow assessment as appropriate., Patient will demonstrate an improvement in oropharyngeal swallow function to warrant diet upgrade. Textile Artist Goal (s): Patient to be independent/baseline with functional mobility and self care and be able to safely discharge to prior level of care. Plan: Continue NPO status with plan for ongoing bedside assessment and potential MBS if Pt demonstrates candidacy (only minimal participation in PO intake during visit this date). Marcella Scherer M.S., [facility]-MEDICAL INSURANCE CLERK Speech Language Pathologist [phone] RUCTIONAL TECHNOLOGY TEACHER * Evelin Robles RN - 05/31/2022 10:57 AM CST Problem: Fall Risk Goal: Fall risk and fall related injury risk are minimized (interventions related to the fall risk can be found in the flowsheet documentation) Outcome: Progressing Problem: Skin Integrity Goal: Skin integrity is maintained or improved Outcome: Progressing RUCTIONAL TECHNOLOGY TEACHER * Paige Brewster MD - 05/31/2022 10:54 AM CST [facility] PROGRESS NOTE Age/Sex: 62 year old male Hospital Day: 1 Admission Date: 05/30/2022 Subjective: Was seen this morning. Alert oriented x 2. Has no c/o. Objective: Patient Vitals for the past 24 hrs: Temp Pulse Resp BP SpO2 05/31/22 0756 98.6 ??F (37 ??C) 90 18 126/80 95 % 05/31/22 0428 98.8 ??F (37.1 ??C) 99 20 133/83 91 % 05/31/22 0050 97.5 ??F (36.4 ??C) 103 20 156/85 94 % 05/30/22 1440 98.4 ??F (36.9 ??C) 83 21 150/94 94 % Physical exam: General: alert, in no distress HEENT: NC, AT, oropharynx clear, EOMI Lungs: breath sounds normal; no rales, wheezes or rhonchi, breathing comfortably Heart: regular rate and rhythm, no murmurs/rubs/gallops Abdomen: soft, non-tender, non-distended, normal bowel sounds, no rebound or guarding Skin: No rashes noted Extremities: edema MSK: Left AKA Neuro: Alert, non-focal, generally weak. Recent lab reviewed as below: Recent Labs Component Name 05/31/22 0529 05/30/22 1538 05/14/22 0310 03/09/22 0135 03/08/22 1455 WBC 13.9* 4.6 4.5 - 20.8* PLATELET - - - - Occasional* - = values in this interval not displayed. Recent Labs Component Name 05/31/22 0529 05/30/22 1538 05/14/22 0310 POTASSIUM 4.6* 4.1 4.2 CO2 23 26 26 BUN 10 13 12 CREATININE 0.64* 0.47* 0.62* GLUCOSE 76 73 97 CALCIUM 9.1 8.1* 8.9 Recent Labs Component Name 05/11/22 1309 03/11/22 1059 03/05/22 1110 INR 1.0 1.2 1.0 No results found for: CK, TROPONIN, PQLCSGBM2U, CKMBRI TSH Date Value Ref Range Status 05/15/2019 1.344 0.350 - 4.940 uIU/mL Final Medications: 0.9% NaCl, 3 mL, q8h aspirin, 81 mg, QDAY atorvastatin, 40 mg, QDAY cefepime, 2 g, q8h divalproex DR, 1,000 mg, BID enoxaparin, 40 mg, QDAY folic acid, 1 mg, QDAY lacosamide, 200 mg, BID levETIRAcetam, 2,000 mg, BID metroNIDAZOLE, 500 mg, q8h vancomycin, 1,250 mg, q8h vancomycin (VANCOCIN) IV dose per pharmacy, , DIRECTED Assessment and Plan: Aspiration pneumonia - 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 - CT finding of debris in the airway and bilateral pneumonia. - Currently patient on room air with no respiratory distress. - continue zosyn&vanc(MRSA PCR +). Alzheimer Disease: - Patient is on pureed diet at [facility] - NPO. Speech therapy evaluation. - Patient evaluated by ENT last admission 05/14/2022. It appears that patient might benefit from surgical intervention, to be discussed further as outpatient (06/25/2022). - s/p PEG tube 03/26/2022. - started tube feed. - Dietary consult for tube feed recommendations. ? Epilepsy: Continue home Depakote, lacosamide and Keppra History of CVA: Continue aspirin and statin History of LLE ischemia S/P left AKA by vascular surgery 03/15/2022 ?? DVT PPx: Lovenox Code Status: Full code Disposition: back to same SNF after stablized?? Paige Brewster MD RUCTIONAL TECHNOLOGY TEACHER * Mara Lloyd RN - 05/31/2022 2:06 AM CST Problem: Fall Risk Goal: Fall risk and fall related injury risk are minimized (interventions related to the fall risk can be found in the flowsheet documentation) Outcome: Progressing Problem: Skin Integrity Goal: Skin integrity is maintained or improved Outcome: Progressing Problem: Impaired Gas Exchange Goal: Resp rate/effort will be within specified limits Outcome: Progressing Problem: Pain/Discomfort Goal: Patient exhibits reduced pain/discomfort as evidenced by pain scores Outcome: Progressing Problem: Elimination Goal: Elimination patterns are normal or improving Outcome: Progressing RUCTIONAL TECHNOLOGY TEACHER * Koby Smith PharmD - 05/30/2022 6:35 PM CST Vancomycin Per Pharmacy - Initial Note Subjective Mojgan Tabor is a 62 year old male being initiated on vancomycin. Indication for anti-infective therapy: suspected infection Site of anti-infective therapy: Lower respiratory. Goal trough 15-20 mcg/mL. Objective Day of treatment: 1 Weight: 59.5 kg (131 lb 2.8 oz) Estimated Creatinine Clearance: >130 mL/min (based on SCr of 0.5) Ht Readings from Last 1 Encounters: 05/30/22 5' 8 (1.727 m) Recent Labs Component Name 05/30/22 1538 05/14/22 0310 05/13/22 0724 03/19/22 0203 03/18/22 0606 03/16/22 0619 03/15/22 0638 03/14/22 0458 03/13/22 2250 CREATININE 0.47* 0.62* 0.48* - 0.56* - - - - WBC 4.6 4.5 4.5 - - - - - - VANCTROUGH - - - - <2.5* - 15.1 - 16.9 - = values in this interval not displayed. Radiocontrast within 72 hours The 3 most recent administrations since 05/27/2022 are shown below each listed medication. Other Order Route Dose Action Date iopamidol (Isovue 370) contrast ADS Med 100 mL $ Given - Contrast 05/30/2022 Vancomycin Administrations from JUL (last 72 hours) Date/Time Action Medication Dose Rate 05/30/22 1602 $ New Bag/Syringe vancomycin (Vancocin) 1,500 mg in 500 mL NaCl IVPB Premix 1,500 mg 333.33 mL/hr Assessment Target trough: 15-20 mcg/mL A dosing regimen of 1250 mg q 8 hours is predicted to achieve a trough of approximately 16 mcg/mL based on previous vanc kinetics in February Renal function based on S Cr is stable at this time. Plan Dosing: Loading Dose: 1500 mg Maintenance Dose: 1250 mg, Dosing Interval: q 8 hr. Monitoring Plan: Will obtain a vancomycin trough level prior to the 5th dose on 06/01 at 0700 and adjust regimen if appropriate. Will continue to monitor patient's renal function. Please contact the [facility] pharmacy department ([phone]) with any questions. Koby Smith PharmD 05/30/2022 6:26 PM Resources: Vancomycin Protocol RUCTIONAL TECHNOLOGY TEACHER documented in this encounter H&P Notes * Rinku Kinney MD - 05/30/2022 6:58 PM CST Name: Mojgan Tabor Admit Date and Time: 05/30/2022 2:26 PM Chief Complaint: Lethargy, respiratory distress History of Present Illness: Mojgan Tabor is a 62 year old male with history of CVA 2015, HTN, HLD, early- onset Alzheimer's, refractory epilepsy, status post PEG tube who presents [facility] from [facility] on 05/30/2022 with complaintsof lethargy, new oxygen requirement and productive cough for last 24 hours. History obtained from patient and patient's POA (Adriane Hilliard (Sister). [phone]). Patient quincy a pureed diet at [facility] and was found to have new oxygen requirement and coughing for last 24 hours. Patient was sent to [facility] for further evaluation. On arrival here, patient afebrile and hemodynamically stable. Labs include CMP largely unchanged/unremarkable. Cbc without leukocytosis. No lactic acidosis. Blood cultures were obtained. Flu and COVID testing negative. CT chest showed bilateral aspiration pneumonia. Patient was started on IV Zosyn. On my evaluation, patient resting in bed comfortably. Patient denies respiratory distress. Currently on room air. Past Medical History: Past Medical History: Diagnosis Date ??? CVA (cerebral vascular accident) (CMS/HCC) ??? HTN (hypertension) ??? Seizure (CMS/HCC) Surgical History: Past Surgical History: Procedure Laterality Date ??? ENDOSCOPY, UPPER N/A 03/25/2022 N/A; ESOPHAGOGASTRODUODENOSCOPY (EGD) DIAGNOSTIC with PEG Placement ??? Leg Amputation, Below Knee Left 03/15/2022 Left; LEFT BKA POSS AKA Social History: Social History Socioeconomic History ??? Marital status: Single Tobacco Use ??? Smoking status: Former Packs/day: 1.00 Years: 15.00 Pack years: 15.00 Types: Cigarettes ??? Smokeless tobacco: Never Vaping Use ??? Vaping Use: Never used Substance and Sexual Activity ??? Alcohol use: No Comment: last drink 2015 ??? Drug use: No Comment: occasional ??? Sexual activity: Not Currently Family History: Noncontributory to current presentation Allergies: Allergies Allergen Reactions ??? Clonazepam Psychiatric hallucinations Home Medications: Current Medications acetaminophen (Tylenol) 325 MG tablet Take 1 (one) tablet by mouth every 6 hours as needed for Fever or Pain artificial tears ophthalmic solution Instill 1 (one) drop into both eyes 3 times daily as needed aspirin (Aspirin) 81 MG chew tablet Take 1 (one) tablet by mouth once daily atorvastatin (Lipitor) 40 MG tablet 1 (one) tablet by Enteral Tube route once daily bisacodyl (Dulcolax) 10 MG suppository Insert 1 (one) suppository into the rectum once daily as needed for Constipation cloBAZam (Onfi) 20 MG tablet 1 (one) tablet by Enteral Tube route [address] (Depakote) 500 MG tablet Take 2 (two) tablets by mouth 2 times daily folic acid (Folvite) 1 MG tablet 1 (one) tablet by Enteral Tube route once daily lacosamide (Vimpat) 200 MG tablet 1 (one) tablet by Enteral Tube route 2 times daily levETIRAcetam (Keppra) 1000 MG tablet 2 (two) tablets by Enteral Tube route 2 times daily polyethylene glycol 3350 (Miralax) 17 g packet Take 17 (seventeen) g by mouth once daily tamsulosin (Flomax) 0.4 MG capsule Take 1 (one) capsule by mouth once daily At the same time every day after a meal. thiamine (Vitamin B-1) 100 MG tablet 1 (one) tablet by Enteral Tube route once daily Objective: BP 150/94 Pulse 83 Temp 98.4 ??F (36.9 ??C) (Oral) Resp 21 Ht 1.727 m (5' 8 ) Wt 59.5 kg (131 lb 2.8 oz) SpO2 94% Estimated body mass index is 19.94 kg/m?? as calculated from the following: Height as of this encounter: 1.727 m (5' 8 ). Weight as of this encounter: 59.5 kg (131 lb 2.8 oz). Exam General: pleasant, laying in bed, no distress HEENT: conjunctivae/corneas clear. Neck: Normal range of motion Lungs: Coarse breath sound bilaterally. Nonlabored breathing on RA. Heart: Normal rate and regular rhythm Abdomen: soft, non-tender, non-distended, G-tube present. Rectal: deferred Extremities: no edema. Left AKA Neuro: alert, cooperative LABS: Labs reviewed CBC: Recent Labs Lab Units 05/30/22 1538 WBC 10??3/uL 4.6 RBC 10??6/uL 3.79* HGB g/dL 12.3 HCT % 36.9 BMP: Recent Labs Lab Units 05/30/22 1538 NA mmol/L 142 CL mmol/L 110* CO2 mmol/L 26 BUN mg/dL 13 CREATININE mg/dL 0.47* CALCIUM mg/dL 8.1* LFTs: Recent Labs Lab Units 05/30/22 1538 AST U/L 16 ALT U/L 6 TBILI mg/dL 0.1* ALB g/dL 2.3* Recent Labs Component Name 05/30/22 1750 05/30/22 1538 05/11/22 1833 03/08/22 1455 12/31/21 0412 02/25/21 1134 05/15/19 0911 05/13/19 2030 01/24/19 0154 CKTOTAL - - - - 77 - 63 - 127 CKMBCK2 - - - - - - 0.8 - - TROPONINI <0.010 <0.010 <0.010 - - - <0.010 - - - = values in this interval not displayed. Imaging reviewed CT C/A/P 05/30/2022 No evidence of pulmonary embolism. Debris are noted in the upper thoracic. Left lower lobe consolidative opacity is increased comparedto the prior exam. Tree-in-bud opacities in the left upper lobe and right lower lung. Findings might represent infectious/inflammatory process or aspiration pneumonia. No acute finding in the abdomen and pelvis. Assessment/Plan: Acute Issues ?? Aspiration pneumonia ?? Evidence by new oxygen requirement and cough for last [address] ?? CT finding of debris in the airway and bilateral pneumonia. ?? Patient currently on room air with no respiratory distress. ?? Started on broad-spectrum antibiotics (vanc, cefepime, Flagyl) in ER. Deescalate antibiotics depending on clinical response. ?? Zenker's diverticulum ?? Likely contributing to aspiration pneumonia ?? Patient is on pureed diet at SNF ?? NPO. Speech therapy evaluation. ?? Patient evaluated by ENT last admission 05/14/2022. It appears that patient might benefit from surgical intervention, to be discussed further as outpatient (06/25/2022). ?? Nutrition ?? Currently NPO due to documented aspiration ?? s/p PEG tube 03/26/2022. Dietary consult for tube feed recommendations ?? On D5 1/2NS at this time Chronic Issues/Management: ?? Epilepsy: Continue home Depakote, lacosamide and Keppra ?? History of CVA: Continue aspirin and statin ?? History of LLE ischemia S/P left AKA by vascular surgery 03/15/2022 DVT PPx: Lovenox Code Status: Full code (discussed with patient's Adriane Vicente (Sister). [phone]) This patient was seen by me around 7:30 p.m. on 05/30/2022 and total time spent on this admission was about 60 minutes. NOTE: Above Assessment, and Plan is [...] information/Historical points/data and will be managed accordingly. Rinku Kinney MD [facility] medicine 05/30/2022 6:59 PM RUCTIONAL TECHNOLOGY TEACHER documented in this encounter Consult Notes * Nuria Guajardo, MINH/ONI - 06/01/2022 12:27 PM CSTAssociated Order(s): IP CONSULT TO NUTRITIONAL SERV; IP CONSULT TO NUTRITIONAL SERV Initial Nutrition Assessment Brief Synopsis: Patient is at Nutrition Risk; Specific criteria can be found in assessment below Nutrition Plan: Continuous: Jevity 1.5 at 60 ml/hr. +50 ml q 6 hrs free water flush or per MD if on IVF +100 ml q4 hrs free water flush or per MD if not on additional fluids Provides 2160 kcal, 92 g protein, 311 g carbohydrate, 1094 ml free water. Bolus recs 360 ml bolus 4x daily- jevity 1.5 +75 ml FWF before and after each bolus Recommendations to Physician: none Comments: RD consulted for TF recs. Pt failed MEDICAL INSURANCE CLERK eval, rec continuing NPO with TF. TF running at 40 ml/hr. Pt was on pureed diet at [facility] per notes. Noted wt fluctuations in hx but overall stable around 59kg. Assessment: Med/Surg History and Clinical Diagnoses: history of CVA 2014, HTN, HLD, early- onset Alzheimer's, refractory epilepsy, status post PEG tube who presents to [facility] ER from SNF on 05/[facility]22 with complaints of lethargy, new oxygen requirement and productive cough for last 24 hours. Height: 172.7 cm (5' 8 ) Weight: 59.5 kg (131 lb 2.8 oz) BMI: Body mass index is 19.95 kg/m??. BMI Range: (adj BMI 22.2) IBW/lb (Calculated) Male: 154 , Recent Weights/Methods 04/28/2022 1122 05/06/2022 1038 05/11/2022 1230 05/11/2022 1232 05/12/2022 2202 05/30/2022 1434 05/31/2022 0115 06/01/2022 1200 Weight: 47.6 kg (105 lb) 47.6 kg (105 lb) 49.9 kg (110 lb) 47.6 kg (104 lb 15 oz) 59.5 kg (131 lb 2.8 oz) 59.5 kg (131 lb 2.8 oz) 59.5 kg (131 lb 2.8 oz) 59.5 kg (131 lb 2.8 oz) Weight Method (Utilize Scales): -- -- Estimated -- Bedscale -- -- -- Wt Comments: Diet order accuracy Current diet order: NPO Current tube feeding order: jevity 1.2 at 40 ml/hr Nutrition recommendation: alter/change nutrition order P.O.Intake for the past 48 hrs: No data recorded Supplement(s) Consumed- Last 48 hours None Food Allergies: No known food allergies GI Concerns: (Zenker's diverticulum) Chewing/Swallowing: Dysphagia (TF) Pain affecting intake: No Estimated Needs: KCAL: 1770 (30 kcal/kg) Protein (g): 70 (1.2 g/kg) Fluid (ml): 1 ml/kcal Needs based on: (59kg) Recommended Access Route: TF Laboratory values: Recent Labs Component Name 06/01/22 0538 05/31/22 0529 05/30/22 1538 05/14/22 0310 05/13/22 0724 BUN 7 10 13 12 9 CREATININE 0.68* 0.64* 0.47* 0.62* 0.48* NA 143 144 142 143 139 POTASSIUM 4.0 4.6* 4.1 4.2 3.7 CL 112* 107 110* 110* 109* CO2 24 23 26 26 25 GLUCOSE 112 76 73 97 96 CALCIUM 8.6 9.1 8.1* 8.9 9.1 PROT - - 5.3* 5.7* 5.7* ALB - - 2.3* 2.4* 2.4* TBILI - - 0.1* 0.2 0.2 ALKPHOS - - 62 77 78 ALT - - 6 10 9 AST - - 16 22 12 ANIONGAP 11 19* 10 11 9 BCR 10 16 28* 19 19 OSMOLALITY 295 296 293 296 287 AGRATIO - - 0.8* 0.7* 0.7* EGFR >90 >90 >90 >90 >90 Medications: Current Facility-Administered Medications Medication ??? 0.9% NaCl injection 3 mL And ??? 0.9% NaCl injection 1-10 mL ??? acetaminophen (Tylenol) tablet 650 mg ??? aspirin chew tablet 81 mg ??? atorvastatin (Lipitor) tablet 40 mg ??? dextrose 5 % and 0.45% NaCl infusion ??? enoxaparin (Lovenox) injection 40 mg ??? folic acid (Folvite) tablet 1 mg ??? ibuprofen (Motrin) tablet 400 mg ??? lacosamide (Vimpat) tablet 200 mg ??? levETIRAcetam (Keppra) tablet 2,000 mg ??? ondansetron (Zofran) injection 4 mg ??? piperacillin - tazobactam (Zosyn) 3.375 g in 0.9% NaCl IV 55 mL IVPB ??? valproic acid (Depakene) solution 1,000 mg ??? vancomycin (Vancocin) 1,250 mg in 250 mL NaCl IVPB Premix ??? vancomycin (Vancocin) IV dose per pharmacy Skin/Wound: PEG tube, L AKA Education needed: None Nutrition Care Process (1) [...] Goal Progress: New goal established Ascom: [id number] RUCTIONAL TECHNOLOGY TEACHER documented in this encounter ED Notes * Shane Little MD - 05/30/2022 6:42 PM CST Physician Transition Note 6:42 PM Care assumed from Dr. Hanson Briefly, this is a 62 year old male with Chief Complaint Patient presents with ??? Lethargy Pt to ED by EMS from [facility] for complaints of increased lethargy, increased oxygen demands and productive cough x 24 hours. Significant Findings: Labs Reviewed CBC W AUTO DIFFERENTIAL - Abnormal; Notable for the following components: Result Value RBC 3.79 (*) Platelet Count 101 (*) Lymphocytes % 47.9 (*) All other components within normal limits COMPREHENSIVE METABOLIC PANEL - Abnormal; Notable for the following components: Creatinine 0.47 (*) Chloride 110 (*) Calcium 8.1 (*) Protein Total 5.3 (*) Albumin 2.3 (*) Bilirubin Total 0.1 (*) BUN/Creatinine Ratio 28 (*) Albumin/Globulin Ratio 0.8 (*) All other components within normal limits SARS-COV-2 (COVID-19) FLU A/B RSV PCR RAPID - Normal Narrative: This nucleic acid amplification assay has been authorized by the Food and Drug administration (FDA)under an Emergency Use Authorization (EUA). This test is only authorized for the [...] ACID BLOOD REFLEX TO REPEAT - Normal TROPONIN I - Normal PROCALCITONIN LEVEL - Normal Narrative: [...] Change in Procalcitonin Calculator is available at [email or web address].[employer] If clinical picture has not improved and PCT remains high, reevaluate and consider treatment failure or other causes. VALPROIC ACID LEVEL - Normal TROPONIN I - Normal CULTURE BLOOD CULTURE BLOOD MRSA DNA PCR URINALYSIS W/MICROSCOPIC REFLEX TO CULTURE LACOSAMIDE LEVETIRACETAM LEVEL TROPONIN I CT CHEST PE W ABD PELVIS W CONT (Results Pending) Workup (labs/Imaging) pending: none Working Differential: acute hypoxic respiratory failure, AMS, PNA Current Plan/Dispo: admit to medicine Please refer to previous Attending note for further details. BP 150/94 Pulse 83 Temp 98.4 ??F (36.9 ??C) (Oral) Resp 21 Ht 1.727 m (5' 8 ) Wt 59.5 kg (131 lb 2.8 oz) SpO2 94% ED Course Admitted to medicine, taken over at 1900 ICD-10-CM 1. Acute on chronic respiratory failure with hypoxia (CMS/HCC) J96.21 EKG 12-LEAD CT CHEST PE W ABD PELVIS W CONT ADMIT TO 2. Abdominal pain, generalized R10.84 CT CHEST PE W ABD PELVIS W CONT ADMIT TO 3. Pulmonary infiltrate R91.8 ADMIT TO 4. History of stroke Z86.73 ADMIT TO 5. Lethargy R53.83 ADMIT TO RUCTIONAL TECHNOLOGY TEACHER * Leonardo Hanson MD - 05/30/2022 2:28 PM CST Mojgan Tabor [id number] [facility] EMERGENCY DEPARTMENT History Chief Complaint Patient presents with ??? Lethargy Pt to ED by EMS from SNF for complaints of increased lethargy, increased oxygen demands and productive cough x 24 hours. 62 year old male w/ PMHx of alcohol abuse (resolved 2016), Right occipital stroke in 2015, HTN, HLD, prior head injury, cervical osteoarthritis, anxiety, Alzheimer's (early onset) and refractory epilepsy who presents from SNF d/t increased lethargy and possible fever. Patient seen by family noted to be more lethargic and higher oxygen demand than typical for the patient. Patient usually has 2 L of oxygen as needed required for today however this seems to have resolved after getting fluids from EMS. Patient noted by EMS to feel warm to the touch also states left hand feels warm to the touch and is mildly edematous. Patient has weakness on the left side secondary to previous TBI patient also n oted for AKA on the left side. Medications: acetaminophen (Tylenol) 325 MG tablet Take 1 (one) tablet by mouth every 6 hours as needed for Fever or Pain -- 01/07/2022 -- Roxanna Coburn MD artificial tears ophthalmic solution Instill 1 (one) drop into both eyes 3 times daily as needed --03/31/2022 -- Dante Nuno MD aspirin (Aspirin) 81 MG chew tablet Take 1 (one) tablet by mouth once daily 60 tablet 01/08/2022 -- Roxanna Coburn MD atorvastatin (Lipitor) 40 MG tablet 1 (one) tablet by Enteral Tube route once daily -- 04/01/2022 --Dante Nuno MD bisacodyl (Dulcolax) 10 MG suppository Insert 1 (one) suppository into the rectum once daily as needed for Constipation -- 03/31/2022 -- Dante Nuno MD cloBAZam (Onfi) 20 MG tablet 1 (one) tablet by Enteral Tube route 2 times daily -- 05/14/2022 -- Karime Echavarria MD divalproex DR (Depakote) 500 MG tablet Take 2 (two) tablets by mouth 2 times daily 120 tablet 05/27/2022 -- Yana Rm APRN-BELINDA folic acid (Folvite) 1 MG tablet 1 (one) tablet by Enteral Tube route once daily -- 04/01/2022 -- Dante Nuno MD lacosamide (Vimpat) 200 MG tablet 1 (one) tablet by Enteral Tube route 2 times daily -- 05/14/2022 -- Karime Echavarria MD levETIRAcetam (Keppra) 1000 MG tablet 2 (two) tablets by Enteral Tube route 2 times daily -- 05/14/2022 -- Karime Echavarria MD polyethylene glycol 3350 (Miralax) 17 g packet Take 17 (seventeen) g by mouth once daily -- 01/08/2022 -- Roxanna Coburn MD tamsulosin (Flomax) 0.4 MG capsule Take 1 (one) capsule by mouth once daily At the same time every day after a meal. -- 04/01/2022 -- Dante Nuno MD thiamine (Vitamin B-1) 100 MG tablet 1 (one) tablet by Enteral Tube route once daily -- 04/01/2022 -- Dante Nuno MD Past medical history: COVID-19 History of CVA (cerebrovascular accident) Cognitive communication deficit Dysphagia, oropharyngeal phase Difficulty in walking, not elsewhere classified Muscle weakness (generalized) Epilepsy, unspecified, not intractable, without status epilepticus (CMS/HCC) Hemiplegia and 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- dominant side (CMS/HCC) Alzheimer's disease with early onset (CMS/HCC) Paroxysmal tachycardia, unspecified (CMS/HCC) Alcohol abuse, uncomplicated Benign neoplasm of prostate Other specified rheumatoid arthritis, unspecified site (CMS/HCC) Syncope and collapse Bacteremia Ulcer of left foot (CMS/HCC) PAD (peripheral artery disease) (CMS/HCC) Protein calorie malnutrition (CMS/HCC) Sepsis without acute organ dysfunction (CMS/HCC) Status epilepticus (CMS/HCC) Acute encephalopathy Seizures (CMS/HCC) Therapeutic procedure Cerebrovascular accident (CMS/HCC) Insomnia Low back pain Osteoporosis Seizure (CMS/HCC) Hypertension Hyperlipidemia Plan for laboratory evaluation. Sepsis protocol CT of the abdomen and pelvis and chest plan for hydration Signed out to Dr. Little at 6:00 p.m. Past Medical History: Diagnosis Date ??? CVA [...] Never true Transportation Needs: Not on file Physical Activity: Not on file Stress: Not on file Social Connections: Not on file Intimate Partner Violence: Not on file Housing Stability: Not on file Review of Systems Review of Systems Reason unable to perform ROS: Poor historian. All other systems reviewed and are negative. Physical Exam There were no vitals taken for this visit. Physical Exam Vitals and nursing note reviewed. Constitutional: Appearance: He is normal weight. HENT: Head: Normocephalic and atraumatic. Nose: Nose normal. Mouth/Throat: Mouth: Mucous membranes are dry. Eyes: Extraocular Movements: Extraocular movements intact. Conjunctiva/sclera: Conjunctivae normal. Pupils: Pupils are equal, round, and reactive to light. Cardiovascular: Rate and Rhythm: Normal rate and regular rhythm. Pulses: Normal pulses. Heart sounds: Normal heart sounds. Pulmonary: Effort: Pulmonary effort is normal. Breath sounds: Normal breath sounds. Abdominal: General: Abdomen is flat. Tenderness: There is abdominal tenderness. Musculoskeletal: Cervical back: Neck supple. Comments: Left AKA Skin: General: Skin is dry. Capillary Refill: Capillary refill takes 2 to 3 seconds. Neurological: Mental Status: He is alert. Mental status is at baseline. He is disoriented. Comments: History of dementia, alcohol abuse, and TBI Psychiatric: Mood and Affect: Mood normal. Behavior: Behavior normal. Medications Current Outpatient Medications Medication Sig Dispense Refill ??? acetaminophen (Tylenol) 325 MG tablet Take 1 (one) tablet by mouth every 6 hours as needed for Fever or Pain ??? artificial tears ophthalmic solution Instill 1 (one) drop into both eyes 3 times daily as needed ??? aspirin (Aspirin) 81 MG chew tablet Take 1 (one) tablet by mouth once daily 60 tablet 2 ??? atorvastatin (Lipitor) 40 MG tablet 1 (one) tablet by Enteral Tube route once daily ??? bisacodyl (Dulcolax) 10 MG suppository Insert 1 (one) suppository into the rectum once daily asneeded for Constipation ??? cloBAZam (Onfi) 20 MG tablet 1 (one) tablet by Enteral Tube route 2 times daily ??? divalproex DR (Depakote) 500 MG tablet Take 2 (two) tablets by mouth 2 times daily 120 tablet 5 ??? folic acid (Folvite) 1 MG tablet 1 (one) tablet by Enteral Tube route once daily ??? lacosamide (Vimpat) 200 MG tablet 1 (one) tablet by Enteral Tube route 2 times daily ??? levETIRAcetam (Keppra) 1000 MG tablet 2 (two) tablets by Enteral Tube route 2 times daily ??? polyethylene glycol 3350 (Miralax) 17 g packet Take 17 (seventeen) g by mouth once daily ??? tamsulosin (Flomax) 0.4 MG capsule Take 1 (one) capsule by mouth once daily At the same time every day after a meal. ??? thiamine (Vitamin B-1) 100 MG tablet 1 (one) tablet by Enteral Tube route once daily Procedures Procedures Lab/SPO2 Interpretation No results found for this visit on 05/30/22. No orders to display Progress Notes ED Course Clinical Impressions as of 05/30/22 1434 Acute on chronic respiratory failure with hypoxia (CMS/HCC) Abdominal pain, generalized Medical Decision Making Palpable abdominal tenderness with reported fever and increased oxygen requirement plan for CT evaluation of the chest abdomen pelvis including a PE protocol CT hydration laboratory evaluation cardiac workup. Sepsis workup. Differential diagnosis includes pneumonia, urinary tract infection, intra- abdominal infection pulmonary embolism dehydration COVID influenza RSV virus, not otherwise specified. Abdominal pain, generalized: acute illness or injury Details: Tender to palpation. Patient does not complain of abdominal pain Acute on chronic respiratory failure with hypoxia (CMS/HCC): acute illness or injury Details: Increased oxygen demand to 4 L rather than the usual 2 L Amount and/or Complexity of Data Reviewed Labs: ordered. Radiology: ordered. ECG/medicine tests: ordered. No orders of the defined types were placed in this encounter. RUCTIONAL TECHNOLOGY TEACHER * Clover Bal RN - 05/30/2022 2:27 PM CST Pt to ED by EMS from [facility] for complaints of increased lethargy, increased oxygen demands and productive cough x 24 hours. RUCTIONAL TECHNOLOGY TEACHER * Aureliano Knox RN - 05/30/2022 2:26 PM CST Bed: [facility] Expected date: Expected time: Means of arrival: Comments: [id number] RUCTIONAL TECHNOLOGY TEACHER documented in this encounter Miscellaneous Notes * Coding Query - Wesltey Corley MD - 06/03/2022 9:07 AM CST DOCUMENTATION CLARIFICATION REQUEST TO: Dr. Corley, FROM: Agnieszka Palumbo RN [facility] Email: [email or web address] Please clarify and document if the patient is being treated/monitored for: - Acute hypoxic respiratory failure is present (please provide supporting clinical findings) - Acute on chronic hypoxic respiratory failure resolved prior to arrival - Acute on chronic hypoxic respiratory failure is present (please provide supporting clinical findings) - Other explanation of clinical findings (please specify) - Unable to determine (no explanation for clinical findings) Clinical Indicators: ED Note 05/30 acute on chronic respiratory failure with hypoxia EMS Note 05/30 wears O2 PRN, increasing respiratory rate, on 4 liters nasal cannula, O2 saturation was 89% on room air, 90-98% on nasal cannula H&P / new oxygen requirements, coughing, aspiration pneumonia, debris in airway, coarse breath sounds, non-labored breathing on room air 1/1 O2 Saturation 94% on room air, RR 21 1/2 O2 Saturation 91-96% on room air, RR 18-20 1/3 O2 Saturation 94-96% on room air, RR 20 1/4 O2 Saturation 94-98% on room air, RR 16-18 1/5 O2 Saturation 96% on room air, RR 16 RN Assessments: coarse crackles, white thick secretions, productive cough Risk Factor(s): bilateral aspiration pneumonia, nares + mrsa, former smoker Treatment: pulse oximetry monitoring, antibiotics, oral suctioning Please document your clinical opinion in the progress notes and discharge summary including the definitive and/or presumptive diagnosis, (suspected or probable), related to the above clinical findings. Please include clinical findings supporting your diagnosis. (Select Edit, then F2 to respond) Acute Hypoxic Respiratory failure on arrival that is resolved with treatment RUCTIONAL TECHNOLOGY TEACHER documented in this encounter Plan of Treatment Upcoming Encounters Date Type Department Care Team (Late st Contact Info) Description 12/05/2024 1:00 PM CDT Office Visit [facility] - Neurology [address] [place] [address], [place] [address] Sean Raymundo, [address] [place] [address] [place] [address] Scheduled Orders Name Type Priority Associated Diagnoses Orde r Schedule FL ESOPHAGRAM Imaging Routine Dysphagia, oropharyngeal phase For radiant use only for 1 Occurrences starting 06/01/2022 until 06/01/2022 documented as of this encounter Procedures Procedure Name Priority Date/Time Associated Diagnosis Comments CARDIAC EKG ORDER 06/03/2022 12: 16 PM INSTRUCTIONAL TECHNOLOGY TEACHER BASIC METABOLIC PANEL (CALCIUM TOTAL) AM Draw 06/03/2022 4:40 AM INSTRUCTIONAL TECHNOLOGY TEACHER PHOSPHORUS BLOOD Routine 06/03/2022 4:40 AM INSTRUCTIONAL TECHNOLOGY TEACHER MAGNESIUM BLOOD Routine 06/03/2022 4:40 AM INSTRUCTIONAL TECHNOLOGY TEACHER CBC W/O DIFFERENTIAL AM Draw 06/03/2022 4:39 AM INSTRUCTIONAL TECHNOLOGY TEACHER SARS-COV-2 (COVID-19) RAPID Routine 06/02/2022 3:10 PM INSTRUCTIONAL TECHNOLOGY TEACHER FL SWALLOWING FUNCTION STUDY Routine 06/02/2022 2:00 PM INSTRUCTIONAL TECHNOLOGY TEACHER Dysphagia, oropharyngeal phase PROCALCITONIN LEVEL Routine 06/02/2022 6 :48 AM INSTRUCTIONAL TECHNOLOGY TEACHER CBC W/O DIFFERENTIAL AM Draw 06/02/2022 4:53 AM INSTRUCTIONAL TECHNOLOGY TEACHER BASIC METABOLIC PANEL (CALCIUM TOTAL) AM Draw 06/02/2022 4:53 AM INSTRUCTIONAL TECHNOLOGY TEACHER PHOSPHORUS BLOOD Routine 06/02/2022 4:53 AM INSTRUCTIONAL TECHNOLOGY TEACHER MAGNESIUM BLOOD Routine 06/02/2022 4:53 AM INSTRUCTIONAL TECHNOLOGY TEACHER XR CHEST 2VW Routine 06/01/2022 7:54 PM INSTRUCTIONAL TECHNOLOGY TEACHER Pulmonary infiltrate CBC W/O DIFFERENTIAL AM Draw 06/01/2022 5:38 AM INSTRUCTIONAL TECHNOLOGY TEACHER BASIC METABOLIC PANEL (CALCIUM TOTAL) AM Draw 06/01/2022 5:38 AM INSTRUCTIONAL TECHNOLOGY TEACHER VANCOMYCIN LEVEL TROUGH Timed 06/01/2022 5:38 AM INSTRUCTIONAL TECHNOLOGY TEACHER MRSA DNA PCR STAT 05/31/2022 10:33 PM INSTRUCTIONAL TECHNOLOGY TEACHER MRSA DNA PCR STAT 05/31/2022 3:12 PM INSTRUCTIONAL TECHNOLOGY TEACHER CBC W/O DIFFERENTIAL AM Draw 05/31/2022 5:29 AM INSTRUCTIONAL TECHNOLOGY TEACHER BASIC METABOLIC PANEL (CALCIUM TOTAL) AM Draw 05/31/2022 5:29 AM INSTRUCTIONAL TECHNOLOGY TEACHER URINALYSIS W/MICROSCOPIC REFLEX TO CULTURE STAT 05/30/2022 11:[address] TECHNOLOGY TEACHER [address] CHEST PE W ABD PELVIS W CONT STAT 05/30/2022 6:16 PM INSTRUCTIONAL TECHNOLOGY TEACHER Acute on chronic respiratory failure with hypoxia (HCC) Abdominal pain, generalized TROPONIN I Timed 05/30/2022 5:50 PM INSTRUCTIONAL TECHNOLOGY TEACHER SARS-COV-2 (COVID-19) FLU A/B RSV PCR RAPID STAT 05/30/2022 4:19 PM INSTRUCTIONAL TECHNOLOGY TEACHER EKG 12-LEAD STAT 05/30/2022 4:00 PM INSTRUCTIONAL TECHNOLOGY TEACHER Acute on chronic respiratory failure with hypoxia (HCC) CULTURE BLOOD Timed 05/30/2022 3:49 PM INSTRUCTIONAL TECHNOLOGY TEACHER LACTIC ACID BLOOD REFLEX TO REPEAT STAT 05/30/2022 3:38 PM INSTRUCTIONAL TECHNOLOGY TEACHER PROCALCITONIN LEVEL STAT 05/30/2022 3 :38 PM INSTRUCTIONAL TECHNOLOGY TEACHER LACOSAMIDE STAT 05/30/2022 3:38 PM INSTRUCTIONAL TECHNOLOGY TEACHER LEVETIRACETAM LEVEL STAT 05/30/2022 3 :38 PM INSTRUCTIONAL TECHNOLOGY TEACHER TROPONIN I STAT 05/30/2022 3:38 PM INSTRUCTIONAL TECHNOLOGY TEACHER CULTURE BLOOD Timed 05/30/2022 3:38 PM INSTRUCTIONAL TECHNOLOGY TEACHER CBC W AUTO DIFFERENTIAL STAT 05/30/2022 3:38 PM INSTRUCTIONAL TECHNOLOGY TEACHER COMPREHENSIVE METABOLIC PANEL STAT 05/30/2022 3:38 PM INSTRUCTIONAL TECHNOLOGY TEACHER VALPROIC ACID LEVEL STAT 05/30/2022 3 :38 PM INSTRUCTIONAL TECHNOLOGY TEACHER documented in this encounter Results * CARDIAC EKG ORDER (06/03/2022 12:16 PM INSTRUCTIONAL TECHNOLOGY TEACHER) Narrative 06/03/2022 12:16 PM INSTRUCTIONAL TECHNOLOGY TEACHER Ordered by an unspecified provider. Scanned Document CARDIAC SERVICES ORD ERABLES * (ABNORMAL) PHOSPHORUS BLOOD (06/03/2022 4:40 AM INSTRUCTIONAL TECHNOLOGY TEACHER) Pathologist [facility] Phosphorus 2.7(L) 2.8 - 5.1 mg/dL 06/03/2022 5:37 AM [facility] Blood BLOOD SPECIMEN / Unknown Lab Venipuncture / Unknown 06/03/2022 4:40 AM INSTRUCTIONAL TECHNOLOGY TEACHER 06/03/2022 5:10 AM INSTRUCTIONAL TECHNOLOGY TEACHER Westley Colrey MD LAB - CHEMISTRY MARSHAL MEDEROS [facility] [address] [place] [address], [facility] [phone] * MAGNESIUM BLOOD (06/03/2022 4:40 AM INSTRUCTIONAL TECHNOLOGY TEACHER) [facility] Magnesium 1.7 1.6 - 2.6 mg/dL 06/03/2022 5:37 AM [facility] Blood BLOOD SPECIMEN / Unknown Lab Venipuncture / Unknown 06/03/2022 4:40 AM INSTRUCTIONAL TECHNOLOGY TEACHER 06/03/2022 5:10 AM INSTRUCTIONAL TECHNOLOGY TEACHER Westley Corley MD LAB - CHEMISTRY MARSHAL MEDEROS [address] [address], [facility] [phone] * (ABNORMAL) BASIC METABOLIC PANEL (CALCIUM TOTAL) (06/03/2022 4:40 AM INSTRUCTIONAL TECHNOLOGY TEACHER) [facility] BUN 9 7 - 26 mg/dL 06/03/2022 5:37 AM [facility] Creatinine 0.81 0.71 - 1.16 mg/dL 06/03/2022 5:37 AM [facility] Sodium 146(H) 136 - 145 mmol/L 06/03/2022 5:37 AM [facility] Potassium 3.9 3.5 - 4.5 mmol/L 06/03/2022 5:37 AM [facility] Chloride 108(H) 98 - 107 mmol/L 06/03/2022 5:37 AM [facility] CO2 27 22 - 29 mmol/L 06/03/2022 5:37 AM [facility] Glucose 92 70 - 115 mg/dL 06/03/2022 5:37 AM [facility] Calcium 8.9 8.4 - 10.2 mg/dL 06/03/2022 5:37 AM [facility] Anion Gap 15 8 - 18 06/03/2022 5:37 AM [facility] BUN/Creatinine Ratio 11 7 - 23 06/03/2022 5:37 AM [facility] Osmolality Calculated 300 270 - 300 mOsm/kg 06/03/2022 5:37 AM [facility] eGFR by CKD-EPI >90 >=90 mL/min/1.7 3 m2 06/03/2022 5:37 AM [facility] Blood BLOOD SPECIMEN / Unknown Lab Venipuncture / Unknown 06/03/2022 4:40 AM INSTRUCTIONAL TECHNOLOGY TEACHER 06/03/2022 5:10 AM [facility] Leonardo Hanson MD LAB - [facility] Organization Address City/State/ZIP Co de Phone Number [facility] [address] [place] [address] [phone] * (ABNORMAL) CBC W/O DIFFERENTIAL (06/03/2022 4:39 AM [facility]) WBC 6.2 3.5 - 10.5 10? 3 /uL 06/03/2022 5:55 AM [facility] RBC 4.01(L) 4.30 - 5.70 10? 6 /uL 06/03/2022 5:55 AM [facility] Hemoglobin 12.8 12.0 - 17.6 g/dL 06/03/2022 5:55 AM [facility] Hematocrit 38.3 35.2 - 51.7 % 06/03/2022 5:55 AM [facility] MCV 95.5 80.7 - 98.3 fL 06/03/2022 5:55 AM [facility] MCH 31.9 26.7 - 34.0 pg 06/03/2022 5:55 AM [facility] MCHC 33.4 30.8 - 35.9 g/dL 06/03/2022 5:55 AM [facility] RDW-SD 43.9 36.0 - 50.0 fL 06/03/2022 5:55 AM [facility] RDW-CV 12.5 11.2 - 14.8 % 06/03/2022 5:55 AM [facility] Platelet Count 91(L) 150 - 400 10? 3 /uL 06/03/2022 5:55 AM [facility] MPV 06/03/2022 5:55 AM [facility] Comment:Unable to Report Immature Platelet Fraction 12.7(H) 1.1 - 6.2 % 06/03/2022 5:55 AM [facility] nRBC Absolute 0.00 0 10? 3 /uL 06/03/2022 5:55 AM [facility] nRBC Auto 0.0 0 /100 WBC 06/03/2022 5:55 AM [facility] Blood BLOOD SPECIMEN / Unknown Lab Venipuncture / Unknown 06/03/2022 4:39 AM INSTRUCTIONAL TECHNOLOGY TEACHER 06/03/2022 5:10 AM INSTRUCTIONAL TECHNOLOGY TEACHER Leonardo Hanson MD LAB - HEMATOLOGY ORD ERABLES [facility] [address] [place] [address], [facility] [phone] * SARS-COV-2 (COVID-19) RAPID (06/02/2022 3:10 PM INSTRUCTIONAL TECHNOLOGY TEACHER) COVID-19 PCR Not detected Not detected 06/02/19 23 3:51 PM [facility] Microbiology SPECIMEN FROM NASOPHARYNGEAL STRUCTURE / Unknown Collection / Unknown 06/02/2022 3:10 PM INSTRUCTIONAL TECHNOLOGY TEACHER 06/02/2022 3:15 PM INSTRUCTIONAL TECHNOLOGY TEACHER Narrative [facility] - 06/02/2022 3:51 PM INSTRUCTIONAL TECHNOLOGY TEACHER The Cepheid Xpert Xpress SARS-COV-2 has been [...] this EUA assay are available upon request. Westley Corley MD LAB - MICROBIOLOGY O RDERABLES [address] [address], [facility] [phone] * FL SWALLOWING FUNCTION STUDY (06/02/2022 2:00 PM INSTRUCTIONAL TECHNOLOGY TEACHER) Anatomical Region Laterality Modality Chest Radiographic Cynthia ging 06/03/2022 7:06 AM INSTRUCTIONAL TECHNOLOGY TEACHER Narrative 06/03/2022 1:04 PM INSTRUCTIONAL TECHNOLOGY TEACHER PROCEDURE: ??FL SWALLOWING FUNCTION STUDY, DATE/TIME OF EXAM: ??06/02/2022 10:26 PM, LOCATION ??[facility] INDICATION: R13.12: Dysphagia, oropharyngeal phase ADDITIONAL CLINICAL INFORMATION: Ordering Provider Reason For Exam: ??dysphagia COMPARISON: Esophagram 05/14/2022 FLUOROSCOPY DOSE: ??1.6 mGy Reference air kerma (ka,r). FLUOROSCOPY TIME: ??1.4 minutes; Number of images: ??[id number] TECHNIQUE: Modified barium swallow fluoroscopy performed in conjunction with speech pathology staff. The speech pathologist administered varying thickness barium liquids and solids under direct Cine fluoroscopy. FINDINGS/IMPRESSION: Fluoroscopic assistance was provided for a modified barium swallow test performed by Speech Therapy. Please see the Speech Therapy report for details. Report dictated by Ashu Welch MD, (radiology technician). Rachel Thomason MD have personally reviewed and interpreted this examination/study. > Interpreting Provider: Rachel Phillips MD on 06/03/2022 1:04 PM Procedure Note Rachel Phillips MD - 06/03/2022 PROCEDURE: FL SWALLOWING FUNCTION STUDY, DATE/TIME OF EXAM: 06/02/2022 10:26 PM, LOCATION [facility] INDICATION: R13.12: Dysphagia, oropharyngeal phase ADDITIONAL CLINICAL INFORMATION: Ordering Provider Reason For Exam: dysphagia COMPARISON: Esophagram 05/14/2022 FLUOROSCOPY DOSE: 1.6 mGy Reference air kerma (ka,r). FLUOROSCOPY TIME: 1.4 minutes; Number of images: [id number] TECHNIQUE: Modified barium swallow fluoroscopy performed in conjunction with speech pathology staff. The speech pathologist administered varying thickness barium liquids and solids under direct Cine fluoroscopy. FINDINGS/IMPRESSION: Fluoroscopic assistance was provided for a modified barium swallow test performed by Speech Therapy. Please see the Speech Therapy report for details. Report dictated by Ashu Welch MD, MD (radiology technician). I, Rachel Phillips MD have personally reviewed and interpreted this examination/study. > Interpreting Provider: Rachel Phillips MD on 06/03/2022 1:04 PM Westley Corley MD FLUOROSCOPY ORDERABL ES * PROCALCITONIN LEVEL (06/02/2022 6:48 AM INSTRUCTIONAL TECHNOLOGY TEACHER) PROCALCITONIN 0.10 <=0.10 ng/mL 06/02/2022 7:50 AM INSTRUCTIONAL TECHNOLOGY TEACHER [facility] Blood BLOOD SPECIMEN / Unknown Lab Venipuncture / Unknown 06/02/2022 6:48 AM INSTRUCTIONAL TECHNOLOGY TEACHER 06/02/2022 7:17 AM INSTRUCTIONAL TECHNOLOGY TEACHER Narrative [facility] - 06/02/2022 7:50 AM INSTRUCTIONAL TECHNOLOGY TEACHER The change in procalcitonin (PCT) concentration over [...] Change in Procalcitonin Calculator is available at [email or web address] ?? If clinical picture has not improved and PCT remains high, reevaluate and consider treatment failure or other causes. Westley Corley MD LAB - CHEMISTRY MARSHAL MEDEROS Performing Organization Address [facility]/ZIP Co de Phone Number [address] [address], [facility] [phone] * PHOSPHORUS BLOOD (06/02/2022 4:53 AM INSTRUCTIONAL TECHNOLOGY TEACHER) Pathologist [facility] Phosphorus 2.8 2.8 - 5.1 mg/dL 06/02/2022 8:36 AM INSTRUCTIONAL TECHNOLOGY TEACHER [facility] Blood BLOOD SPECIMEN / Unknown Lab Venipuncture / Unknown 06/02/2022 4:53 AM INSTRUCTIONAL TECHNOLOGY TEACHER 06/02/2022 7:57 AM INSTRUCTIONAL TECHNOLOGY TEACHER Westley Corley MD LAB - CHEMISTRY MARSHAL MEDEROS Performing Organization Address [facility]/ZIP Co de Phone Number [address] [address], [facility] [phone] * MAGNESIUM BLOOD (06/02/2022 4:53 AM INSTRUCTIONAL TECHNOLOGY TEACHER) Magnesium 1.8 1.6 - 2.6 mg/dL 06/02/2022 8:33 AM [facility] Blood BLOOD SPECIMEN / Unknown Lab Venipuncture / Unknown 06/02/2022 4:53 AM INSTRUCTIONAL TECHNOLOGY TEACHER 06/02/2022 7:57 AM [facility] Westley Corley MD LAB - CHEMISTRY MARSHAL MEDEROS [facility] [address] [place] [address], [facility] [phone] * (ABNORMAL) BASIC METABOLIC PANEL (CALCIUM TOTAL) (06/02/2022 4:53 AM [facility]) BUN 8 7 - 26 mg/dL 06/02/2022 8:33 AM [facility] Creatinine 0.84 0.71 - 1.16 mg/dL 06/02/2022 8:33 AM [facility] Sodium 146(H) 136 - 145 mmol/L 06/02/2022 8:33 AM [facility] Potassium 4.7(H) 3.5 - 4.5 mmol/L 06/02/2022 8:33 AM [facility] Comment:Hemolysis detected i n this specimen. Hemolysis may cause false elevations in potassium leading to pseudohyperkalemia or masked hypokalemia. Recommend repeat testing if clinically indicated. Chloride 112(H) 98 - 107 mmol/L 06/02/2022 8:33 AM [facility] CO2 22 22 - 29 mmol/L 06/02/2022 8:33 AM [facility] Glucose 68(L) 70 - 115 mg/dL 06/02/2022 8:33 AM [facility] Calcium 9.1 8.4 - 10.2 mg/dL 06/02/2022 8:33 AM [facility] Anion Gap 17 8 - 18 06/02/2022 8:33 AM [facility] BUN/Creatinine Ratio 10 7 - 23 08/2022 8:33 AM [facility] Osmolality Calculated 299 270 - 300 mOsm/kg 06/02/2022 8:33 AM [facility] eGFR by CKD-EPI >90 >=90 mL/min/1. 73 m2 06/02/2022 8:33 AM [facility] Blood BLOOD SPECIMEN / Unknown Lab Venipuncture / Unknown 06/02/2022 4:53 AM INSTRUCTIONAL TECHNOLOGY TEACHER 06/02/2022 7:57 AM [facility] Leonardo Hanson MD LAB - CHEMISTRY MARSHAL MEDEROS [facility] [address] [place] [address] [phone] * (ABNORMAL) CBC W/O DIFFERENTIAL (06/02/2022 4:53 AM [facility]) WBC 6.9 3.5 - 10.5 10? 3 /uL 06/02/2022 8:53 AM [facility] RBC 3.91(L) 4.30 - 5.70 10? 6 /uL 06/02/2022 8:53 AM [facility] Hemoglobin 12.6 12.0 - 17.6 g/dL 06/02/2022 8:53 AM [facility] Hematocrit 38.0 35.2 - 51.7 % 06/02/2022 8:53 AM [facility] MCV 97.2 80.7 - 98.3 fL 06/02/2022 8:53 AM [facility] MCH 32.2 26.7 - 34.0 pg 06/02/2022 8:53 AM [facility] MCHC 33.2 30.8 - 35.9 g/dL 06/02/2022 8:53 AM [facility] RDW-SD 44.4 36.0 - 50.0 fL 06/02/2022 8:53 AM [facility] RDW-CV 12.5 11.2 - 14.8 % 06/02/2022 8:53 AM [facility] Platelet Count 06/02/2022 8:53 AM [facility] Comment: Platelets are clumped, appear as decreased on the slide. ??A blue top citrated tube is required for a platelet count. ?? Notified Karla Ely RN at 8:52 AM on 06/02/2022. MPV 06/02/2022 8:53 AM INSTRUCTIONAL TECHNOLOGY TEACHER [facility] Comment:Unable to Report Immature Platelet Fraction 06/02/2022 8:53 AM [facility] Comment:Unable to Report nRBC Absolute 0.00 0 10? 3 /uL 06/02/2022 8:53 AM [facility] nRBC Auto 0.0 0 /100 WBC 06/02/2022 8:53 AM [facility] Blood BLOOD SPECIMEN / Unknown Lab Venipuncture / Unknown 06/02/2022 4:53 AM INSTRUCTIONAL TECHNOLOGY TEACHER 06/02/2022 7:57 AM INSTRUCTIONAL TECHNOLOGY TEACHER Leonardo Hanson MD LAB - HEMATOLOGY ORD ERABLES [facility] [facility] [address] [place] [address], [facility] [phone] * XR CHEST 2VW (06/01/2022 7:54 PM INSTRUCTIONAL TECHNOLOGY TEACHER) Anatomical Region Laterality Modality Chest Radiographic Cynthia ging 06/02/2022 1:34 PM INSTRUCTIONAL TECHNOLOGY TEACHER Impressions 06/02/2022 5:09 PM INSTRUCTIONAL TECHNOLOGY TEACHER IMPRESSION: Bilateral lower lobe opacities consistent with aspiration pneumonia. Report dictated by Ashu Welch M.D. (radiology technician) IAshwin MD have personally reviewed and interpreted this examination/study. > Interpreting Provider: Ashwin Read MD on 06/02/2022 5:09 PM Narrative 06/02/2022 5:09 PM INSTRUCTIONAL TECHNOLOGY TEACHER PROCEDURE: ??XR CHEST 2VW, DATE/TIME OF EXAM: ??06/01/2022 7:54 PM, LOCATION [facility] INDICATION: R91.8: Pulmonary infiltrate ADDITIONAL CLINICAL INFORMATION: [...] bony thorax is intact. Procedure Note Dianne Read MD - 06/02/2022 PROCEDURE: XR CHEST 2VW, DATE/TIME OF EXAM: 06/01/2022 7:54 PM, LOCATION [facility] INDICATION: R91.8: Pulmonary infiltrate ADDITIONAL CLINICAL INFORMATION: [...] pneumonia. Report dictated by Ashu Welch M.D. (radiology technician) Ashwin Thomason MD have personally reviewed and interpreted this examination/study. > Interpreting Provider: Ashwin Read MD on 06/02/2022 5:09 PM Westley Corley MD DIAGNOSTIC IMAGING O RDERABLES * (ABNORMAL) BASIC METABOLIC PANEL (CALCIUM TOTAL) (06/01/2022 5:38 AM INSTRUCTIONAL TECHNOLOGY TEACHER) BUN 7 7 - 26 mg/dL 06/01/2022 6:51 AM [facility] Creatinine 0.68(L) 0.71 - 1.16 mg/dL 06/01/2022 6:51 AM [facility] Sodium 143 136 - 145 mmol/L 06/01/2022 6:51 AM [facility] Potassium 4.0 3.5 - 4.5 mmol/L 06/01/2022 6:51 AM [facility] Chloride 112(H) 98 - 107 mmol/L 06/01/2022 6:51 AM [facility] CO2 24 22 - 29 mmol/L 06/01/2022 6:51 AM [facility] Glucose 112 70 - 115 mg/dL 06/01/2022 6:51 AM [facility] Calcium 8.6 8.4 - 10.2 mg/dL 06/01/2022 6:51 AM [facility] Anion Gap 11 8 - 18 06/01/2022 6:51 AM [facility] BUN/Creatinine Ratio 10 7 - 23 06/01/2022 6:51 AM [facility] Osmolality Calculated 295 270 - 300 mOsm/kg 06/01/2022 6:51 AM [facility] eGFR by CKD-EPI >90 >=90 mL/min/1.7 3 m2 06/01/2022 6:51 AM [facility] Blood BLOOD SPECIMEN / Unknown Lab Venipuncture / Unknown 06/01/2022 5:38 AM INSTRUCTIONAL TECHNOLOGY TEACHER 06/01/2022 6:16 AM INSTRUCTIONAL TECHNOLOGY TEACHER Leonardo Hanson MD LAB - CHEMISTRY MARSHAL MEDEROS [facility] Organization Address City/State/[facility] Co de Phone Number [facility] [address] [place] [address] [phone] * (ABNORMAL) CBC W/O DIFFERENTIAL (06/01/2022 5:38 AM INSTRUCTIONAL TECHNOLOGY TEACHER) WBC 7.0 3.5 - 10.5 10? 3 /uL 06/01/2022 6:53 AM [facility] RBC 3.62(L) 4.30 - 5.70 10? 6 /uL 06/01/2022 6:53 AM [facility] Hemoglobin 11.7(L) 12.0 - 17.6 g/dL 06/01/2022 6:53 AM [facility] Hematocrit 34.7(L) 35.2 - 51.7 % 06/01/2022 6:53 AM [facility] MCV 95.9 80.7 - 98.3 fL 06/01/2022 6:53 AM [facility] MCH 32.3 26.7 - 34.0 pg 06/01/2022 6:53 AM [facility] MCHC 33.7 30.8 - 35.9 g/dL 06/01/2022 6:53 AM [facility] RDW-SD 44.2 36.0 - 50.0 fL 06/01/2022 6:53 AM [facility] RDW-CV 12.5 11.2 - 14.8 % 06/01/2022 6:53 AM [facility] Platelet Count 83(L) 150 - 400 10? 3 /uL 06/01/2022 6:53 AM [facility] MPV 13.5(H) 9.4 - 12.9 fL 06/01/2022 6:53 AM [facility] Immature Platelet Fraction 13.9(H) 1.1 - 6.2 % 06/01/2022 6:53 AM [facility] nRBC Absolute 0.00 0 10? 3 /uL 06/01/2022 6:53 AM [facility] nRBC Auto 0.0 0 /100 WBC 06/01/2022 6:53 AM [facility] Blood BLOOD SPECIMEN / Unknown Lab Venipuncture / Unknown 06/01/2022 5:38 AM INSTRUCTIONAL TECHNOLOGY TEACHER 06/01/2022 6:01 AM INSTRUCTIONAL TECHNOLOGY TEACHER Leonardo Hanson MD LAB - HEMATOLOGY ORD BRENDA [address] [address], [facility] [phone] * (ABNORMAL) VANCOMYCIN LEVEL TROUGH (06/01/2022 5:38 AM INSTRUCTIONAL TECHNOLOGY TEACHER) [facility] Vancomycin Trough 35.3(HH) 10.0 - 20.0 ug/mL 06/01/2022 6:55 AM [facility] Blood BLOOD SPECIMEN / Unknown Lab Venipuncture / Unknown 06/01/2022 5:38 AM INSTRUCTIONAL TECHNOLOGY TEACHER 06/01/2022 6:16 AM INSTRUCTIONAL TECHNOLOGY TEACHER Narrative [facility] - 06/01/2022 6:55 AM INSTRUCTIONAL TECHNOLOGY TEACHER See institution protocol. Paige Brewster MD LAB - CHEMISTRY MARSHAL MEDEROS [address] [address], [place] [phone] * (ABNORMAL) MRSA DNA PCR (05/31/2022 10:33 PM INSTRUCTIONAL TECHNOLOGY TEACHER) Pathologist [facility] MRSA DNA by PCR Detected( A) Not detected 06/01/2022 3:31 AM INSTRUCTIONAL TECHNOLOGY TEACHER [facility] MICROBIOLOGY Microbiology SPECIMEN FROM NASAL FOSSAE / Unknown Collection / Unknown 05/31/2022 10:33 PM INSTRUCTIONAL TECHNOLOGY TEACHER 05/31/2022 10:35 PM INSTRUCTIONAL TECHNOLOGY TEACHER [facility] MICROBIOLOGY - 06/01/2022 3:31 AM INSTRUCTIONAL TECHNOLOGY TEACHER 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 Paige Brewster MD LAB - MICROBIOLOGY O VANESSA Performing Organization Address City/[facility]/ZIP Co de Phone Number [facility] MICROBIOLOGY [address] [place] [address], [facility] [phone] * (ABNORMAL) MRSA DNA PCR (05/31/2022 3:12 PM INSTRUCTIONAL TECHNOLOGY TEACHER) Pathologist [facility] MRSA DNA by PCR Detected( A) Not detected 05/31/2022 8:11 PM INSTRUCTIONAL TECHNOLOGY TEACHER [facility] MICROBIOLOGY Microbiology SPECIMEN FROM NASAL FOSSAE / Unknown Collection / Unknown 05/31/2022 3:12 PM INSTRUCTIONAL TECHNOLOGY TEACHER 05/31/2022 3:19 PM INSTRUCTIONAL TECHNOLOGY TEACHER [facility] MICROBIOLOGY - 05/31/2022 8:11 PM INSTRUCTIONAL TECHNOLOGY TEACHER 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 Leonardo Hanson MD LAB - MICROBIOLOGY O VANESSA Performing Organization Address City/[facility]/ZIP Co de Phone Number [facility] MICROBIOLOGY [address] [place] [address], [facility] [phone] * (ABNORMAL) BASIC METABOLIC PANEL (CALCIUM TOTAL) (05/31/2022 5:29 AM INSTRUCTIONAL TECHNOLOGY TEACHER) Pathologist [facility] BUN 10 7 - 26 mg/dL 05/31/2022 6:26 AM [facility] Creatinine 0.64(L) 0.71 - 1.16 mg/dL 05/31/2022 6:26 AM [facility] Sodium 144 136 - 145 mmol/L 05/31/2022 6:26 AM [facility] Potassium 4.6(H) 3.5 - 4.5 mmol/L 05/31/2022 6:26 AM [facility] Chloride 107 98 - 107 mmol/L 05/31/2022 6:26 AM [facility] CO2 23 22 - 29 mmol/L 05/31/2022 6:26 AM [facility] Glucose 76 70 - 115 mg/dL 05/31/2022 6:26 AM [facility] Calcium 9.1 8.4 - 10.2 mg/dL 05/31/2022 6:26 AM [facility] Anion Gap 19(H) 8 - 18 05/31/2022 6:26 AM [facility] BUN/Creatinine Ratio 16 7 - 23 05/31/2022 6:26 AM [facility] Osmolality Calculated 296 270 - 300 mOsm/kg 05/31/2022 6:26 AM [facility] eGFR by CKD-EPI >90 >=90 mL/min/1.7 3 m2 05/31/2022 6:26 AM [facility] Blood BLOOD SPECIMEN / Unknown Lab Venipuncture / Unknown 05/31/2022 5:29 AM INSTRUCTIONAL TECHNOLOGY TEACHER 05/31/2022 5:52 AM [facility] Leonardo Hanson MD LAB [facility] Organization Address City/State/[facility] Co de Phone Number [facility] [address] [place] [address], [facility] [phone] * (ABNORMAL) CBC W/O DIFFERENTIAL (05/31/2022 5:29 AM [facility]) WBC 13.9(H) 3.5 - 10.5 10? 3 /uL 05/31/2022 6:07 AM [facility] RBC 4.61 4.30 - 5.70 10? 6 /uL 05/31/2022 6:07 AM [facility] Hemoglobin 14.9 12.0 - 17.6 g/dL 05/31/2022 6:07 AM [facility] Hematocrit 45.2 35.2 - 51.7 % 05/31/2022 6:07 AM [facility] MCV 98.0 80.7 - 98.3 fL 05/31/2022 6:07 AM [facility] MCH 32.3 26.7 - 34.0 pg 05/31/2022 6:07 AM [facility] MCHC 33.0 30.8 - 35.9 g/dL 05/31/2022 6:07 AM [facility] RDW-SD 44.9 36.0 - 50.0 fL 05/31/2022 6:07 AM [facility] RDW-CV 12.5 11.2 - 14.8 % 05/31/2022 6:07 AM [facility] Platelet Count 101(L) 150 - 400 10? 3 /uL 05/31/2022 6:07 AM [facility] MPV 12.4 9.4 - 12.9 fL 05/31/2022 6:07 AM [facility] nRBC Absolute 0.00 0 10? 3 /uL 05/31/2022 6:07 AM [facility] nRBC Auto 0.0 0 /100 WBC 05/31/2022 6:07 AM [facility] Blood BLOOD SPECIMEN / Unknown Lab Venipuncture / Unknown 05/31/2022 5:29 AM INSTRUCTIONAL TECHNOLOGY TEACHER 05/31/2022 5:52 AM [facility] Leonardo Hanson MD LAB - HEMATOLOGY ORD ERABLES [facility] [address] [place] [address], [facility] [phone] * (ABNORMAL) URINALYSIS W/MICROSCOPIC REFLEX TO CULTURE (05/30/2022 11:40 PM INSTRUCTIONAL TECHNOLOGY TEACHER) Color UA Colorless(A ) Straw, Yellow 05/30/2022 11:47 PM [facility] Clarity UA Clear Clear 05/30/2022 11:47 PM [facility] Specific [place] UA 1.012 1.005 - 1.030 05/30/2022 11:47 PM [facility] pH UA 8.0 5.0 - 8.0 pH 05/30/2022 11:47 PM [facility] Protein UA Negative Negative 05/30/2022 11:47 PM [facility] Glucose UA Negative Negative 05/30/2022 11:47 PM [facility] Ketone UA Negative Negative 05/30/2022 11:47 PM [facility] Bilirubin UA Negative Negative 05/30/2022 11:47 PM [facility] Blood UA Negative Negative 05/30/2022 11:47 PM [facility] Nitrite UA Negative Negative 05/30/2022 11:47 PM [facility] Leukocyte Esterase Negative Negative 05/30/2022 11:47 PM [facility] Urobilinogen UA Negative Negative mg/dL 05/30/2022 11:47 PM [facility] RBC UA 0-2 None Seen, 0-2, 3-5 /HPF 05/30/2022 11:47 PM [facility] WBC UA None Seen None Seen, 0-5 /HPF 05/30/2022 11:47 PM [facility] Squamous Epithelial Cells UA None Seen None Seen, 0-2, 3-5 /HPF 05/30/2022 11:47 PM [facility] Urine URINE SPECIMEN OBTAINED BY CLEAN CATCH PROCEDURE / Unknown Collection / Unknown 05/30/2022 11:40 PM INSTRUCTIONAL TECHNOLOGY TEACHER 05/30/2022 11:40 PM INSTRUCTIONAL TECHNOLOGY TEACHER [facility] - 05/30/2022 11:47 PM INSTRUCTIONAL TECHNOLOGY TEACHER Culture Not Indicated Leonardo Hanson MD LAB - URINALYSIS ORD ERABLES Performing Organization Address City/State/[facility] Co de Phone Number [address] [address], [facility] [phone] * CT CHEST PE W ABD PELVIS W CONT (05/30/2022 6:16 PM INSTRUCTIONAL TECHNOLOGY TEACHER) Anatomical Region Laterality Modality Chest, Abdomen, Pelvis Computed Tomography 05/30/2022 5:55 PM INSTRUCTIONAL TECHNOLOGY TEACHER Impressions 05/30/2022 11:10 PM INSTRUCTIONAL TECHNOLOGY TEACHER Impression: 1.No evidence of pulmonary embolism. 2.Debris [...] pelvis. > Dictated by Ernie Tapia MD (radiology technician). I, John Graham MD have personally reviewed and interpreted this examination/study. > Interpreting Provider: John Graham MD on 05/30/2022 11:10 PM Narrative 05/30/2022 11:10 PM INSTRUCTIONAL TECHNOLOGY TEACHER PROCEDURE: ??CT CHEST PE W ABD PELVIS W CONT, DATE/TIME OF EXAM: ??05/30/2022 5:15 PM, LOCATION ??[facility] INDICATION: J96.21: Acute on chronic respiratory failure with hypoxia (CMS/HCC) R10.84: Abdominal pain, generalized ADDITIONAL CLINICAL INFORMATION: Ordering Provider Reason For Exam: ??is there pe, gen abd pain COMPARISON: CT abdomen pelvis dated 03/08/2022. TECHNIQUE: CT of the chest was performed [...] abnormality is present. Lower Neck and Axillae: Normal. Lungs: Debris are noted in the upper thoracic. Emphysematous changes are seen. Left lower lobe consolidative opacity is increased compared to the prior exam. Tree-in-bud opacities in the left upper lobe and right lower lung is noted. Trace left pleural effusion is seen. There is also focal bronchiectasis in the left lung base. There is no pneumothorax. Heart and Pericardium: The cardiac chambers are normal in size. No pericardial fluid or thickening is present. Mediastinum and Almita: No enlarged lymph nodes are present. Other findings: None. Abdomen/pelvis: Liver: Normal. Gallbladder and Bile Ducts: Contracted. The common bile duct is not dilated. Spleen: Normal. Pancreas: Pancreatic duct is mildly prominent in the body measuring up to 4 mm, unchanged compared to prior exam dated otherwise the pancreas is normal. Adrenals: Normal. Kidneys: Normal. Gastrointestinal: Gastrostomy tube is in place. There is no dilated bowel loops. Rectal contrast opacifies colon lumen. Moderate volume of stool is noted in the colon. The appendix is normal. Mesentery/Peritoneum/Retroperitoneum: No free intraperitoneal air. No free fluid in the abdomen or pelvis. Bladder: Normal. Reproductive Organs: The prostate is enlarged measuring 5.3 cm transversely. Abdominal Vasculature: No vascular abnormality is present. Bones: Bone windows demonstrate no suspicious lytic or blastic lesions. The visible osseous structures are intact. Chronic fracture of the sternum is seen. Soft tissues: Mild body wall edema in the lower pelvis and upper thigh. Procedure Note John Graham MD - 05/30/2022 PROCEDURE: CT CHEST PE W ABD PELVIS W CONT, DATE/TIME OF EXAM:05/30/2022 5:15 PM, LOCATION [facility] INDICATION: J96.21: Acute on chronic respiratory failure with hypoxia (CMS/HCC) R10.84: Abdominal pain, generalized ADDITIONAL CLINICAL INFORMATION: Ordering Provider Reason For Exam: is there pe, gen abd pain COMPARISON: CT abdomen pelvis dated 03/08/2022. TECHNIQUE: CT of the chest was performed [...] abnormality is present. Lower Neck and Axillae: Normal. Lungs: Debris are noted in the upper thoracic. Emphysematous changes are seen. Left lower lobe consolidative opacity is increased compared to the prior exam. Tree-in-bud opacities in the left upper lobe and right lower lungis noted. Trace left pleural effusion is seen. There is also focal bronchiectasis in the left lung base. There is no pneumothorax. Heart and Pericardium: The cardiac chambers are normal in size. No pericardial fluid orthickening is present. Mediastinum and Almita: No enlarged lymph nodes are present. Other findings: None. Abdomen/pelvis: Liver: Normal. Gallbladder and Bile Ducts: Contracted. The common bile duct is not dilated. Spleen: Normal. Pancreas: Pancreatic duct is mildly prominent in the body measuring up to 4 mm, unchanged compared to prior exam dated otherwise the pancreas is normal. Adrenals: Normal. Kidneys: Normal. Gastrointestinal: Gastrostomy tube is in place. There is no dilated bowel loops. Rectal contrast opacifies colon lumen. Moderate volume of stool is noted in the colon. The appendix is normal. Mesentery/Peritoneum/Retroperitoneum: No free intraperitoneal air. No free fluid in the abdomen or pelvis. Bladder: Normal. Reproductive Organs: The prostate is enlarged measuring 5.3 cm transversely. Abdominal Vasculature: No vascular abnormality is present. Bones: Bone windows demonstrate no suspicious lytic or blastic lesions. The visible osseous structures are intact. Chronic fracture of the sternumis seen. Soft tissues: Mild body wall edema in the lower pelvis and upper thigh. Impression: 1.No evidence of pulmonary embolism. 2.Debris are noted in the upper thoracic. Left lower lobe consolidative opacity is increased compared to the prior exam. Tree-in-bud opacitiesin the left upper lobe and right lower lung. Findings consistent with aspiration pneumonia. Focal bronchiectasis in the left lung base suggest acute on chronic aspiration. 3.No acute finding in the abdomen and pelvis. > Dictated by Ernie Tapia MD (radiology technician). I, John Graham MD have personally reviewed and interpreted this examination/study. > Interpreting Provider: John Graham MD on 05/30/2022 11:10 PM Leonardo Hanson MD CT ORDERABLES * TROPONIN I (05/30/2022 5:50 PM INSTRUCTIONAL TECHNOLOGY TEACHER) [facility] Troponin I <0.010 <0.032 ng/mL 05/30/2022 6:31 PM INSTRUCTIONAL TECHNOLOGY TEACHER [facility] Blood BLOOD SPECIMEN / Unknown Venipuncture / Unknown 05/30/2022 5:50 PM INSTRUCTIONAL TECHNOLOGY TEACHER 05/30/2022 5:59 PM INSTRUCTIONAL TECHNOLOGY TEACHER Leonardo Hanson MD LAB - CHEMISTRY MARSHAL MEDEROS [facility] Organization Address City/State/ZIP Co de Phone Number [address] [address], [facility] [phone] * SARS-COV-2 (COVID-19) FLU A/B RSV PCR RAPID (05/30/2022 4:19 PM INSTRUCTIONAL TECHNOLOGY TEACHER) [facility] COVID-19 PCR Not detected Not detected 05/30/19 23 5:03 PM [facility] Influenza A PCR Not detected Not detected 05/30/2022 5:03 PM [facility] Influenza B PCR Not detected Not detected 05/30/2022 5:03 PM [facility] RSV PCR Not detected Not detected 05/30/2022 5:03 PM [facility] Microbiology SPECIMEN FROM NASOPHARYNGEAL STRUCTURE / Unknown Collection / Unknown 05/30/2022 4:19 PM INSTRUCTIONAL TECHNOLOGY TEACHER 05/30/2022 4:22 PM [facility] - 05/30/2022 5:03 PM [facility] This nucleic acid amplification assay has been [...] Leonardo Hanson MD LAB - MICROBIOLOGY O RDERABLES [facility] [address] [place] [address], [facility] [phone] * EKG 12-LEAD (05/30/2022 4:00 PM [facility]) [facility] Ventricular Rate 91 BPM [facility] Atrial Rate 91 BPM [facility] MUSE P-R Interval 140 ms [facility] MUSE QRS Duration ms 86 ms [facility] MUSE Q-T Interval ms 338 ms [facility] MUSE QTC Calculation (Bezet) 415 ms [facility] MUSE Calculated P Thurman 79 degrees [facility]USE Calculated R Thurman -13 degrees [facility]USE Calculated T Thurman 86 degrees [facility] Interpretation EKG NORMAL SINUS RHYTHM ANTEROSEPTAL INFARCT , AGE UNDETERMINED INFERIOR INFARCT , AGE UNDETERMINED ABNORMAL ECG WHEN COMPARED WITH ECG OF 11-MAY-2022 12:34, ANTEROSEPTAL INFARCT IS NOW PRESENT ST ELEVATION NOW PRESENT IN ANTERIOR LEADS VENT. RATE HAS DECREASED by 8 bpm Confirmed by LEONARDO HARDEN MD ([id number]) on 05/30/2022 9:47:06 PM [facility] MUSE 05/30/2022 4:00 PM INSTRUCTIONAL TECHNOLOGY TEACHER 05/30/2022 9:47 PM INSTRUCTIONAL TECHNOLOGY TEACHER Leonardo Hanson MD ECG ORDERABLES Performing Organization Address [facility] de Phone Number [facility] MUSE * CULTURE BLOOD (05/30/2022 3:49 PM INSTRUCTIONAL TECHNOLOGY TEACHER) Culture No growth day 5 JELLY 06/04/2022 8:32 PM INSTRUCTIONAL TECHNOLOGY TEACHER [facility] MICROBIOLOGY Blood PERIPHERAL BLOOD / Unknown Venipuncture / Unknown 05/30/2022 3:49 PM INSTRUCTIONAL TECHNOLOGY TEACHER 05/30/2022 3:52 PM INSTRUCTIONAL TECHNOLOGY TEACHER Leonardo Hanson MD LAB - MICROBIOLOGY O RDERABLES Performing Organization Address [facility] de Phone Number [facility] MICROBIOLOGY [address] [place] [address], [facility] [phone] * (ABNORMAL) LEVETIRACETAM LEVEL (05/30/2022 3:38 PM INSTRUCTIONAL TECHNOLOGY TEACHER) Levetiracetam 43(H) 10 - 40 ug/mL 06/01/2022 7:02 PM INSTRUCTIONAL TECHNOLOGY TEACHER [facility] ([facility]) Comment: INTERPRETIVE INFORMATION: Keppra (Levetiracetam) Therapeutic Range: ??10-40 ug/mL ?Toxic: ??Not well Established Pharmacokinetics of levetiracetam are affected by renal function. Adverse effects may include somnolence, weakness, headache and vomiting. This levetiracetam (Keppra) immunoassay uses the [facility] reagents, which has known cross-reactivity with the drug brivaracetam (Briviact) and may report inaccurate results. Patients transitioning from levetiracetam to brivaracetam or those who are using both medications should not monitor drug concentrations with the [facility] assay. These patients should be monitored using a validated chromatographic methodology that distinguishes between drugs to determine drug concentrations. Performed By: [employer] [address] [place] [address] Stuffing Machine Operator: Power Milian MD, PhD Blood BLOOD SPECIMEN / Unknown Venipuncture / Unknown 05/30/2022 3:38 PM INSTRUCTIONAL TECHNOLOGY TEACHER 05/30/2022 3:41 PM INSTRUCTIONAL TECHNOLOGY TEACHER Leonardo Hanson MD LAB - THERAPEUTIC DR UG MONITORING ORDERABLES Performing Organization Address [facility]/ZIP Co de Phone Number [facility]) [address] [place] [address] * (ABNORMAL) LACOSAMIDE (05/30/2022 3:38 PM INSTRUCTIONAL TECHNOLOGY TEACHER) [facility] Lacosamide 10.5(H) 1.0 - 10.0 ug/mL 06/02/2022 8:43 PM INSTRUCTIONAL TECHNOLOGY TEACHER [facility] ([facility]) Comment: INTERPRETIVE INFORMATION: Lacosamide, Serum or Plasma [...] developed and its performance characteristics determined by [employer]. It has not been cleared or approved by the [place] Food and Drug Administration. This test was performed in a CLIA-certified laboratory and is intended for clinical purposes. Performed By: [employer] [address] [place] [address] Stuffing Machine Operator: Power Milian MD, PhD Blood BLOOD SPECIMEN / Unknown Venipuncture / Unknown 05/30/2022 3:38 PM INSTRUCTIONAL TECHNOLOGY TEACHER 05/30/2022 3:41 PM INSTRUCTIONAL TECHNOLOGY TEACHER Leonardo Hanson MD LAB - CHEMISTRY ORDE RABLES Performing Organization Address City/[facility]/ZIP Co de Phone Number [facility] ([facility]) [address] [place] [address] * VALPROIC ACID LEVEL (05/30/2022 3:38 PM INSTRUCTIONAL TECHNOLOGY TEACHER) Valproic Acid Total 81 50 - 100 ug/mL 05/30/2022 4:14 PM INSTRUCTIONAL TECHNOLOGY TEACHER [facility] Blood BLOOD SPECIMEN / Unknown Venipuncture / Unknown 05/30/2022 3:38 PM INSTRUCTIONAL TECHNOLOGY TEACHER 05/30/2022 3:44 PM INSTRUCTIONAL TECHNOLOGY TEACHER Leonardo Hanson MD LAB - CHEMISTRY MARSHAL MEDEROS [facility] [address] [place] [phone], [facility] [phone] * PROCALCITONIN LEVEL (05/30/2022 3:38 PM INSTRUCTIONAL TECHNOLOGY TEACHER) Pathologist [facility] PROCALCITONIN <0.02 <=0.10 ng/mL 05/30/2022 5:07 PM INSTRUCTIONAL TECHNOLOGY TEACHER [facility] Blood BLOOD SPECIMEN / Unknown Venipuncture / Unknown 05/30/2022 3:38 PM INSTRUCTIONAL TECHNOLOGY TEACHER 05/30/2022 3:41 PM INSTRUCTIONAL TECHNOLOGY TEACHER Narrative [facility] - 05/30/2022 5:07 PM INSTRUCTIONAL TECHNOLOGY TEACHER The change in procalcitonin (PCT) concentration over [...] Change in Procalcitonin Calculator is available at [email or web address] ?? If clinical picture has not improved and PCT remains high, reevaluate and consider treatment failure or other causes. Leonardo Hanson MD LAB - CHEMISTRY [facility]SH[facility] MEDER[facility] [address] [place] [address], [facility] [phone] * (ABNORMAL) COMPREHENSIVE METABOLIC PANEL (05/30/2022 3:38 PM [facility]) BUN 13 7 - 26 mg/dL 05/30/2022 4:14 PM [facility] Creatinine 0.47(L) 0.71 - 1.16 mg/dL 05/30/2022 4:14 PM [facility] Sodium 142 136 - 145 mmol/L 05/30/2022 4:14 PM [facility] Potassium 4.1 3.5 - 4.5 mmol/L 05/30/2022 4:14 PM [facility] Chloride 110(H) 98 - 107 mmol/L 05/30/2022 4:14 PM [facility] CO2 26 22 - 29 mmol/L 05/30/2022 4:14 PM [facility] Glucose 73 70 - 115 mg/dL 05/30/2022 4:14 PM [facility] Calcium 8.1(L) 8.4 - 10.2 mg/dL 05/30/2022 4:14 PM [facility] Protein Total 5.3(L) 6.0 - 8.3 g/dL 05/30/2022 4:14 PM [facility] Albumin 2.3(L) 3.4 - 5.0 g/dL 05/30/2022 4:14 PM [facility] Bilirubin Total 0.1(L) 0.2 - 1.2 mg/dL 05/30/2022 4:14 PM [facility] Alkaline Phosphatase 62 40 - 150 U/L 05/30/2022 4:14 PM [facility] ALT 6 5 - 55 U/L 05/30/2022 4:14 PM [facility] AST 16 5 - 34 U/L 05/30/2022 4:14 PM [facility] Anion Gap 10 8 - 18 05/30/2022 4:14 PM [facility] BUN/Creatinine Ratio 28(H) 7 - 23 05/30/2022 4:14 PM [facility] Osmolality Calculated 293 270 - 300 mOsm/kg 05/30/2022 4:14 PM [facility] Albumin/Globulin Ratio 0.8(L) 1.1 - 2.3 05/30/2022 4:14 PM [facility] eGFR by CKD-EPI >90 >=90 mL/min/1.7 3 m2 05/30/2022 4:14 PM [facility] Blood BLOOD SPECIMEN / Unknown Venipuncture / Unknown 05/30/2022 3:38 PM INSTRUCTIONAL TECHNOLOGY TEACHER 05/30/2022 3:44 PM INSTRUCTIONAL TECHNOLOGY TEACHER Leonardo Hanson MD LAB - CHEMISTRY ORDE [facility] Organization Address City/State/ZIP Co de Phone Number [facility] [address] [place] [id number] [phone] * (ABNORMAL) CBC W AUTO DIFFERENTIAL (05/30/2022 3:38 PM INSTRUCTIONAL TECHNOLOGY TEACHER) WBC 4.6 3.5 - 10.5 10? 3 /uL 05/30/2022 3:47 PM [facility] RBC 3.79(L) 4.30 - 5.70 10? 6 /uL 05/30/2022 3:47 PM [facility] Hemoglobin 12.3 12.0 - 17.6 g/dL 05/30/2022 3:47 PM [facility] Hematocrit 36.9 35.2 - 51.7 % 05/30/2022 3:47 PM [facility] MCV 97.4 80.7 - 98.3 fL 05/30/2022 3:47 PM [facility] MCH 32.5 26.7 - 34.0 pg 05/30/2022 3:47 PM [facility] MCHC 33.3 30.8 - 35.9 g/dL 05/30/2022 3:47 PM [facility] RDW-SD 44.4 36.0 - 50.0 fL 05/30/2022 3:47 PM [facility] RDW-CV 12.4 11.2 - 14.8 % 05/30/2022 3:47 PM [facility] Platelet Count 101(L) 150 - 400 10? 3 /uL 05/30/2022 3:47 PM [facility] MPV 12.7 9.4 - 12.9 fL 05/30/2022 3:47 PM [facility] nRBC Absolute 0.00 0 10? 3 /uL 05/30/2022 3:47 PM [facility] nRBC Auto 0.0 0 /100 WBC 05/30/2022 3:47 PM [facility] Neutrophils % 40.8 35.0 - 70.0 % 05/30/2022 3:47 PM [facility] Lymphocytes % 47.9(H) 20.0 - 43.0 % 05/30/2022 3:47 PM [facility] Monocytes % 7.6 5.0 - 13.0 % 05/30/2022 3:47 PM [facility] Eosinophils % 3.1 0.0 - 6.0 % 05/30/2022 3:47 PM [facility] Basophil % 0.4 0.0 - 2.0 % 05/30/2022 3:47 PM [facility] Neutrophils Absolute 1.87 1.60 - 7.00 10? 3 /uL 05/30/2022 3:47 PM [facility] Lymphocyte Absolute 2.20 1.10 - 3.90 10? 3 /uL 05/30/2022 3:47 PM [facility] Monocytes Absolute 0.35 0.26 - 1.07 10? 3 /uL 05/30/2022 3:47 PM [facility] Eosinophils Absolute 0.14 0.00 - 0.47 10? 3 /uL 05/30/2022 3:47 PM [facility] Basophils Absolute 0.02 0.00 - 0.08 10? 3 /uL 05/30/2022 3:47 PM INSTRUCTIONAL TECHNOLOGY TEACHER [facility] Immature Granulocytes % 0.2 0.0 - 1.0 % 05/30/2022 3:47 PM INSTRUCTIONAL TECHNOLOGY TEACHER [facility] Immature Granulocytes Absolute 0.01 05/30/2022 3:47 PM INSTRUCTIONAL TECHNOLOGY TEACHER [facility] Blood BLOOD SPECIMEN / Unknown Venipuncture / Unknown 05/30/2022 3:38 PM INSTRUCTIONAL TECHNOLOGY TEACHER 05/30/2022 3:44 PM INSTRUCTIONAL TECHNOLOGY TEACHER Leonardo Hanson MD LAB - HEMATOLOGY ORD ERABLES Performing Organization Address City/[facility]/ZIP Co de Phone Number [address] [address], [place] [phone] * CULTURE BLOOD (05/30/2022 3:38 PM INSTRUCTIONAL TECHNOLOGY TEACHER) Culture No growth day 5 JELLY 06/04/2022 8:32 PM INSTRUCTIONAL TECHNOLOGY TEACHER [facility]CRO[facility] Blood PERIPHERAL BLOOD / Unknown Venipuncture / Unknown 05/30/2022 3:38 PM INSTRUCTIONAL TECHNOLOGY TEACHER 05/30/2022 4:09 PM INSTRUCTIONAL TECHNOLOGY TEACHER Leonardo Hanson MD LAB - MICROBIOLOGY O RDERABLES Performing Organization Address City/[facility]/ZIP Co de Phone Number [facility]CROBIOLOGY [address] [place] [address], [facility] [phone] * TROPONIN I (05/30/2022 3:38 PM INSTRUCTIONAL TECHNOLOGY TEACHER) Troponin I <0.010 <0.032 ng/mL 05/30/2022 4:17 PM INSTRUCTIONAL TECHNOLOGY TEACHER [facility] Blood BLOOD SPECIMEN / Unknown Venipuncture / Unknown 05/30/2022 3:38 PM INSTRUCTIONAL TECHNOLOGY TEACHER 05/30/2022 3:44 PM INSTRUCTIONAL TECHNOLOGY TEACHER Leonardo Hanson MD LAB - CHEMISTRY ORDE [place] Performing Organization Address City/[facility]/ZIP Co de Phone Number [address] [address], [place] [phone] * LACTIC ACID BLOOD REFLEX TO REPEAT (05/30/2022 3:38 PM INSTRUCTIONAL TECHNOLOGY TEACHER) Lactic Acid-Stat 1.8 <=2.0 mmol/L 05/30/2022 4:08 PM INSTRUCTIONAL TECHNOLOGY TEACHER [facility] Blood BLOOD SPECIMEN / Unknown Venipuncture / Unknown 05/30/2022 3:38 PM INSTRUCTIONAL TECHNOLOGY TEACHER 05/30/2022 3:44 PM INSTRUCTIONAL TECHNOLOGY TEACHER Leonardo Hanson MD LAB - CHEMISTRY [facility]SH[facility] MEDER[facility] [address] [place] [address], [facility] [phone] documented in this encounter Visit Diagnoses Diagnosis Acute on chronic respiratory failure with hypoxia (HCC)- Primary Acute on chronic respiratory failure with hypoxia (HCC) Abdominal pain, generalized Pulmonary infiltrate Other nonspecific abnormal finding of lung field History of stroke Transient ischemic attack (TIA), and cerebral infarction without residual deficits Lethargy Other malaise and fatigue Dysphagia, oropharyngeal phase Protein-calorie malnutrition, unspecified severity (HCC) Abdominal pain, generalized Lethargy Other malaise and fatigue History of stroke Transient ischemic attack (TIA), and cerebral infarction without residual deficits Pulmonary infiltrate Other nonspecific abnormal finding of lung field Protein-calorie malnutrition, unspecified severity (HCC) Dysphagia, oropharyngeal phase documented in this encounter Administered Medications Inactive Administered Medications - up to 3 most recent administrations Medication Order MAR Action Action Date Dose Rate Site 0.9% NaCl injection 1-10 mL 1-10 mL, Intracatheter, PRN, Other, peripheral line flush, Starting on Tue05/30/22 at 1428, Until [facility] 06/03/22 at 1453, Flush peripheral IV catheter with 1-10 mL of normal saline before and after medications and prn to clear blood from the line or to verify patency. 0.9% NaCl injection 3 mL 3 mL, Intracatheter, EVERY 8 HOURS, First dose on Tue05/30/22 at 1500, Until Discontinued, Flush peripheral IV catheter with 3 mL of normal saline every 8 hours. $ Given 06/03/2022 5:00 AM INSTRUCTIONAL TECHNOLOGY TEACHER 3 mL $ Given 06/02/2022 3:33 PM INSTRUCTIONAL TECHNOLOGY TEACHER 3 mL $ Given 06/02/2022 6:25 AM INSTRUCTIONAL TECHNOLOGY TEACHER 3 mL acetaminophen (Tylenol) tablet 650 mg 650 mg, Oral, EVERY 6 HOURS PRN, Mild Pain, Headache, Starting on Tue06/01/22 at 0148, Until Marian 06/03/22 at 1453, Patient preference for lesser PRN pain meds may be honored when the patient requests a less strong medication, a lower dose, or a less intrusive route of administration when the lesser drug, dose and route have been ordered for the patient. This patient request must be documented in the MAR. $ Given 06/01/2022 1:54 AM INSTRUCTIONAL TECHNOLOGY TEACHER 650 mg aspirin chew tablet 81 mg 81 mg, Enteral Tube, DAILY, First dose (after last modification) on Tue05/30/22 at 1945, Until Discontinued $ Given 06/03/2022 9:20 AM INSTRUCTIONAL TECHNOLOGY TEACHER 81 mg G Tube $ Given 06/02/2022 8:09 AM INSTRUCTIONAL TECHNOLOGY TEACHER 81 mg G Tube $ Given 06/01/2022 8:11 AM INSTRUCTIONAL TECHNOLOGY TEACHER 81 mg G Tube atorvastatin (Lipitor) tablet 40 mg 40 mg, Enteral Tube, DAILY, First dose on Tue05/30/22 at 1945, Until Discontinued $ Given 06/03/2022 9:20 AM INSTRUCTIONAL TECHNOLOGY TEACHER 40 mg G Tub e $ Given 06/02/2022 8:08 AM INSTRUCTIONAL TECHNOLOGY TEACHER 40 mg G Tube $ Given 06/01/2022 8:10 AM INSTRUCTIONAL TECHNOLOGY TEACHER 40 mg G Tube barium (Varibar Thin) 40 % liquid SUSR 20 mL 20 mL, Oral, ONCE, 1 dose, On Tue06/02/22 at 2245 $ Given - Contrast 06/02/2022 1:45 PM INSTRUCTIONAL TECHNOLOGY TEACHER 20 mL barium (Varibar) 40 % paste PSTE Oral, ONCE, 1 dose, On Tue06/02/22 at 2245 $ Given - Contrast 06/02/2022 1:45 PM INSTRUCTIONAL TECHNOLOGY TEACHER 20 mL barium (Varibar) 40 % suspension Oral, ONCE, 1 dose, On Tue06/02/22 at 2245, Barium Honey/[place] $ Given - Contrast 06/02/2022 1:45 PM INSTRUCTIONAL TECHNOLOGY TEACHER 30 mL cefepime (Maxipime) 2,000 mg in 0.9% NaCl IV 50 mL IVPB 2,000 mg (2 g), at 600 mL/hr, Intravenous, NOW, 1 dose, On Tue05/30/22 at 1445, Indication for anti-infective therapy: Suspected infection, Site of anti-infective therapy: Other, Other site of infection (free text): Sepsis Unknown Origin - Healthcare associated $ New Bag/Syringe 05/30/2022 4:04 PM INSTRUCTIONAL TECHNOLOGY TEACHER 2,000 mg 600 mL/hr cefepime (Maxipime) 2,000 mg in 0.9% NaCl IV 50 mL IVPB 2,000 mg (2 g), at 100 mL/hr, Intravenous, EVERY 8 HOURS, First dose on Tue05/30/22 at 2130, Until Discontinued, Indication for anti-infective therapy: Suspected infection, Site of anti-infective therapy: Other, Other site of infection (free text): Sepsis Unknown Origin - Healthcare associated $ New Bag/Syringe 05/31/2022 2:11 PM INSTRUCTIONAL TECHNOLOGY TEACHER 2,000 mg 100 mL/hr $ New Bag/Syringe 05/31/2022 5:38 AM INSTRUCTIONAL TECHNOLOGY TEACHER 2,000 mg 100 mL /hr $ New Bag/Syringe 05/30/2022 9:32 PM INSTRUCTIONAL TECHNOLOGY TEACHER 2,000 mg 100 mL /hr cefTRIAXone (Rocephin) 2,000 mg in 0.9% NaCl IV 50 mL IVPB 2,000 mg (2 g), at 100 mL/hr, Intravenous, EVERY 24 HOURS, 1 dose, First dose on Tue06/02/22 at 1000, Ceftriaxone can cause precipitation when administered with calcium-containing fluids, including LR. Flush lines with a compatible fluid, such as D5W or NS before and after ceftriaxone dose. Admin through separate lumens is acceptable. , Indication for anti-infective therapy: Documented infection, Site of anti-infective therapy: Lower Respiratory $ New Bag/Syringe 06/02/2022 10:48 AM INSTRUCTIONAL TECHNOLOGY TEACHER 2,000 mg 100 mL/hr cefTRIAXone (Rocephin) 2,000 mg in 0.9% NaCl IV 50 mL IVPB 2,000 mg (2 g), at 100 mL/hr, Intravenous, EVERY 24 HOURS, 1 dose, First dose on Tue06/03/22 at 0945, Ceftriaxone can cause precipitation when administered with calcium-containing fluids, including LR. Flush lines with a compatible fluid, such as D5W or NS before and after ceftriaxone dose. Admin through separate lumens is acceptable. , Indication for anti-infective therapy: Documented infection, Site of anti-infective therapy: Lower Respiratory $ New Bag/Syringe 06/03/2022 11:13 AM INSTRUCTIONAL TECHNOLOGY TEACHER 2,000 mg 100 mL/hr dextrose 5 % and 0.45% NaCl infusion at 100 mL/hr, Intravenous, CONTINUOUS, Starting on Tue05/30/22 at 2015, Until Tue06/01/22 at 1705 $ New Bag/Syringe 06/01/2022 1:50 PM INSTRUCTIONAL TECHNOLOGY TEACHER 100 mL/hr $ New Bag/Syringe 06/01/2022 2:00 AM INSTRUCTIONAL TECHNOLOGY TEACHER 100 mL /hr $ New Bag/Syringe 05/31/2022 5:27 PM INSTRUCTIONAL TECHNOLOGY TEACHER 100 mL /hr divalproex DR (Depakote) tablet 1,000 mg 1,000 mg, Oral, 2 TIMES DAILY, First dose on Tue05/30/22 at 2100, Until Discontinued, Do not crush, chew, or cut in half. $ Given 05/31/2022 8:50 AM INSTRUCTIONAL TECHNOLOGY TEACHER 1,000 mg $ Given 05/30/2022 9:18 PM INSTRUCTIONAL TECHNOLOGY TEACHER 1,000 mg enoxaparin (Lovenox) injection 40 mg 40 mg, Subcutaneous, DAILY, First dose on Tue05/30/22 at 2100, Until Discontinued, (for prefilled syringes) do not expel air bubble from the syringe prior to the injection Remind Patient to not rub injection site. Could cause hematoma. $ Given 06/02/2022 9:19 PM INSTRUCTIONAL TECHNOLOGY TEACHER 40 mg Abd Right Lower Quad rant $ Given 06/01/2022 10:32 PM INSTRUCTIONAL TECHNOLOGY TEACHER 40 mg A bdominal Tissue $ Given 05/31/2022 8:04 PM INSTRUCTIONAL TECHNOLOGY TEACHER 40 mg Ab dominal Tissue folic acid (Folvite) tablet 1 mg 1 mg, Enteral Tube, DAILY, First dose on Tue05/30/22 at 1945, Until Discontinued $ Given 06/03/2022 9:19 AM INSTRUCTIONAL TECHNOLOGY TEACHER 1 mg G Tube $ Given 06/02/2022 8:09 AM INSTRUCTIONAL TECHNOLOGY TEACHER 1 mg G Tube $ Given 06/01/2022 8:10 AM INSTRUCTIONAL TECHNOLOGY TEACHER 1 mg G Tube ibuprofen (Motrin) tablet 400 mg 400 mg, Oral, EVERY 6 HOURS PRN, Moderate Pain, Starting on Tue06/01/22 at 0150, Until Tue06/03/22 at 1453, Maximum allowable amount = 3200 mg / 24 hours. Patient preference for lesser PRN pain meds may be honored when the patient requests a less strong medication, a lower dose, or a less intrusive route of administration when the lesser drug, dose and route have been ordered for the patient. This patient request must be documented in the MAR. iopamidol (Isovue 370) contrast ADS Med 1 dose, Starting on Tue05/30/22 at 1659, Until Tue05/30/22 at 1716, Created by cabinet override $ Given - Contrast 05/30/2022 5:16 PM INSTRUCTIONAL TECHNOLOGY TEACHER 100 mL lacosamide (Vimpat) tablet 200 mg 200 mg, Enteral Tube, 2 TIMES DAILY, First dose on Tue05/30/22 at 2100, Until Discontinued $ Given 06/03/2022 9:19 AM INSTRUCTIONAL TECHNOLOGY TEACHER 200 mg G Tube $ Given 06/02/2022 9:12 PM INSTRUCTIONAL TECHNOLOGY TEACHER 200 mg G Tube $ Given 06/02/2022 8:09 AM INSTRUCTIONAL TECHNOLOGY TEACHER 200 mg G Tube lactated ringers infusion at 125 mL/hr, Intravenous, CONTINUOUS, Starting on Tue05/30/22 at 1445, Until Tue05/30/22 at 1943 $ New Bag/Syringe 05/30/2022 7:01 PM INSTRUCTIONAL TECHNOLOGY TEACHER 125 mL/hr lactated ringers infusion at 50 mL/hr, Intravenous, CONTINUOUS, Starting on Tue06/02/22 at 0945, Until Tue06/02/22 at 2144 $ New Bag/Syringe 06/02/2022 10:42 AM INSTRUCTIONAL TECHNOLOGY TEACHER 50 mL/hr lactated ringers IV bolus 1,785 mL (30 mL/kg ? 59.5 kg), at 1,785 mL/hr, Administer over 60 Minutes, BOLUS IV, 1 dose, On Tue05/30/22 at 1445, Monitor closely and notify physician for persistent hypotension during initial 60 minutes after crystalloid 30 ml/kg bolus stop time. (hypotension = SBP LESS than 90 mmHg or MAP LESS than 65 mmHg or decrease in SBP by more than 40 mmHg from last SBP considered normal for patient) Patient has a BMI greater than 30 or obesity. [place] Body Weight used for sepsis bolus dosing. $ New Bag/Syringe 05/30/2022 4:00 PM INSTRUCTIONAL TECHNOLOGY TEACHER 1,785 mL 1785 mL/hr levETIRAcetam (Keppra) tablet 2,000 mg 2,000 mg, Enteral Tube, 2 TIMES DAILY, First dose on Tue05/30/22 at 2100, Until Discontinued, Do not crush or chew because of TASTE only. $ Given 06/03/2022 9:20 AM INSTRUCTIONAL TECHNOLOGY TEACHER 2,000 mg G Tube $ Given 06/02/2022 9:12 PM INSTRUCTIONAL TECHNOLOGY TEACHER 2,000 mg G Tube $ Given 06/02/2022 8:08 AM INSTRUCTIONAL TECHNOLOGY TEACHER 2,000 mg G Tube metroNIDAZOLE (Flagyl) 500 mg in 100 mL IVPB 500 mg, at 200 mL/hr, Intravenous, EVERY 8 HOURS, First dose on Tue05/30/22 at 1815, Until Discontinued, Controlled Room Temperature, Indication for anti-infective therapy: Suspected infection, Site of anti-infective therapy: Lower Respiratory $ New Bag/Syringe 05/31/2022 11:58 AM INSTRUCTIONAL TECHNOLOGY TEACHER 500 mg 200 mL/hr $ New Bag/Syringe 05/31/2022 1:49 AM INSTRUCTIONAL TECHNOLOGY TEACHER 500 mg 200 mL /hr $ New Bag/Syringe 05/30/2022 9:50 PM INSTRUCTIONAL TECHNOLOGY TEACHER 500 mg 200 mL /hr ondansetron (Zofran) injection 4 mg 4 mg, Intravenous, EVERY 6 HOURS PRN, Nausea/Vomiting, Starting on Tue06/01/22 at 0148, Until Marian 06/03/22 at 1453, Administer over 2 to 5 minutes. $ Given 06/01/2022 1:54 AM INSTRUCTIONAL TECHNOLOGY TEACHER 4 mg piperacillin - tazobactam (Zosyn) 3.375 g in 0.9% NaCl IV 55 mL IVPB 3.375 g, at 110 mL/hr, Intravenous, ONCE, 1 dose, On Tue05/31/22 at 1730, Infuse only initial dose of piperacillin-tazobactam over 30 min. Subsequent doses start 6 hours after initial dose and infused over 4 hours., Indication for anti-infective therapy: Documented infection, Site of anti-infective therapy: Lower Respiratory $ New Bag/Syringe 05/31/2022 5:26 PM INSTRUCTIONAL TECHNOLOGY TEACHER 3.375 g 110 mL/hr piperacillin - tazobactam (Zosyn) 3.375 g in 0.9% NaCl IV 55 mL IVPB 3.375 g, at 13.75 mL/hr, Intravenous, EVERY 8 HOURS, First dose on Tue05/31/22 at 2330, Until Discontinued, Indication for anti-infective therapy: Documented infection, Site of anti-infective therapy: Lower Respiratory $ New Bag/Syringe 06/02/2022 8:26 AM INSTRUCTIONAL TECHNOLOGY TEACHER 3.375 g 13.75 mL/hr $ New Bag/Syringe 06/01/2022 10:31 PM INSTRUCTIONAL TECHNOLOGY TEACHER 3.375 g 13.75 mL/hr $ New Bag/Syringe 06/01/2022 4:13 PM INSTRUCTIONAL TECHNOLOGY TEACHER 3.375 g 13.75 mL/hr valproic acid (Depakene) solution 1,000 mg 1,000 mg, Enteral Tube, 2 TIMES DAILY, First dose on Tue05/31/22 at 2100, Until Discontinued $ Given 06/03/2022 9:19 AM INSTRUCTIONAL TECHNOLOGY TEACHER 1,000 mg G Tube $ Given 06/02/2022 9:13 PM INSTRUCTIONAL TECHNOLOGY TEACHER 1,000 mg G Tube $ Given 06/02/2022 8:08 AM INSTRUCTIONAL TECHNOLOGY TEACHER 1,000 mg G Tube vancomycin (Vancocin) 1,250 mg in 250 mL NaCl IVPB Premix 1,250 mg, at 200 mL/hr, Intravenous, EVERY 8 HOURS, First dose on Tue05/31/22 at 0000, Until Discontinued, Indication for anti-infective therapy: Suspected infection, Site of anti-infective therapy: Lower Respiratory $ New Bag/Syringe 06/01/2022 10:54 AM INSTRUCTIONAL TECHNOLOGY TEACHER 1,250 mg 200 mL/hr $ New Bag/Syringe 06/01/2022 1:56 AM INSTRUCTIONAL TECHNOLOGY TEACHER 1,250 mg 200 mL /hr $ New Bag/Syringe 05/31/2022 6:03 PM INSTRUCTIONAL TECHNOLOGY TEACHER 1,250 mg 200 mL /hr vancomycin (Vancocin) 1,500 mg in 500 mL NaCl IVPB Premix 1,500 mg, at 333.33 mL/hr, Intravenous, ONCE, 1 dose, On Tue05/30/22 at 1500, Indication for anti-infective therapy: Suspected infection, Site of anti-infective therapy: Blood $ New Bag/Syringe 05/30/2022 4:02 PM INSTRUCTIONAL TECHNOLOGY TEACHER 1,500 mg 333.33 mL/hr vancomycin (Vancocin) 1,500 mg in 500 mL NaCl IVPB Premix 1,500 mg, at 333.33 mL/hr, Intravenous, EVERY 12 HOURS, First dose on Tue06/01/22 at 2300, Until Discontinued, Indication for anti-infective therapy: Suspected infection, Site of anti-infective therapy: Lower Respiratory $ New Bag/Syringe 06/03/2022 2:00 AM INSTRUCTIONAL TECHNOLOGY TEACHER 1,500 mg 333.33 mL/hr Current Rate 06/02/2022 5:39 PM INSTRUCTIONAL TECHNOLOGY TEACHER 333.33 mL/h r Rate Change 06/02/2022 5:39 PM INSTRUCTIONAL TECHNOLOGY TEACHER 333.33 mL/hr documented in this encounter Active and Recently Administered Medications Times are shown in INSTRUCTIONAL TECHNOLOGY TEACHER. Scheduled Medication Order 06/01/2022 06/02/2022 06/03/2022 0.9% NaCl injection 3 mL(Linked Group 1) 3 mL, Intracatheter, EVERY 8 HOURS, First dose on Tue05/30/22 at 1500, Until Discontinued, Flush peripheral IV catheter with 3 mL of normal saline every 8 hours. 0500 (Canceled Entry - Provider: Loretta Trejo RN)1341 (Canceled Entry - Provider: Evelin Robles RN)2232 ($ Given - Provider: China Mosley, ALFRED) 0625 ($ Given - Provider: China Mosley, RN)1533 ($ Given - Provider: Karla Ely RN)2340 (Canceled Entry - Provider: Aylin Spangler) 0500 ($ Given - Provider: Aylin Spangler)1331 (Canceled Entry - Provider: Zhang Gee, ALFRED) aspirin chew tablet 81 mg 81 mg, Enteral Tube, DAILY, First dose (after last modification) on 05/30/22 at 1945, Until Discontinued 0811 ($ Given - Provider: Evelin Robles RN) 0809 ($ Given - Provider: Karla Ely, ALFRED) 0920 ($ Given - Provider: Zhang Gee, ALFRED) atorvastatin (Lipitor) tablet 40 mg 40 mg, Enteral Tube, DAILY, First dose on 05/30/22 at 1945, Until Discontinued 0810 ($ Given - Provider: Evelin Robles RN) 0808 ($ Given - Provider: Karla Ely RN) 0920 ($ Given - Provider: Zhang Gee, ALFRED) barium (Varibar Thin) 40 % liquid SUSR 20 mL (COMPLETED) 20 mL, Oral, ONCE, 1 dose, On Tue06/02/22 at 2245 1345 ($ Given - Contrast - Provider: Tamie Schwarz, RT(R)) barium (Varibar) 40 % paste PSTE (COMPLETED) Oral, ONCE, 1 dose, On Tue06/02/22 at 2245 1345 ($ Given - Contrast - Provider: Tamie Schwarz, RT(R)) barium (Varibar) 40 % suspension (COMPLETED) Oral, ONCE, 1 dose, On Tue06/02/22 at 2245, Barium Honey/[place] 1345 ($ Given - Contrast - Provider: Tamie Schwarz, RT(R)) cefTRIAXone (Rocephin) 2,000 mg in 0.9% NaCl IV 50 mL IVPB (COMPLETED) 2,000 mg (2 g), at 100 mL/hr, Intravenous, EVERY 24 HOURS, 1 dose, First dose on Tue06/02/22 at 1000, Ceftriaxone can cause precipitation when administered with calcium-containing fluids, including LR. Flush lines with a compatible fluid, such as D5W or NS before and after ceftriaxone dose. Admin through separate lumens is acceptable. , Indication for anti-infective therapy: Documented infection, Site of anti-infective therapy: Lower Respiratory 1048 ($ New Bag/Syringe - Provider: Karla Ely RN)1123 (Stopped - Provider: Karla Ely RN) cefTRIAXone (Rocephin) 2,000 mg in 0.9% NaCl IV 50 mL IVPB (COMPLETED) 2,000 mg (2 g), at 100 mL/hr, Intravenous, EVERY 24 HOURS, 1 dose, First dose on Tue06/03/22 at 0945, Ceftriaxone can cause precipitation when administered with calcium-containing fluids, including LR. Flush lines with a compatible fluid, such as D5W or NS before and after ceftriaxone dose. Admin through separate lumens is acceptable. , Indication for anti-infective therapy: Documented infection, Site of anti-infective therapy: Lower Respiratory 1113 ($ New Bag/Syringe - Provider: Zhang Gee RN)1223 (Stopped - Provider: Zhang Gee RN) enoxaparin (Lovenox) injection 40 mg 40 mg, Subcutaneous, DAILY, First dose on Tue05/30/22 at 2100, Until Discontinued, (for prefilled syringes) do not expel air bubble from the syringe prior to the injection Remind Patient to not rub injection site. Could cause hematoma. 223 ($ Given - Provider: China Mosley RN) 2119 ($ Given - Provider: Aylin Spangler) folic acid (Folvite) tablet 1 mg 1 mg, Enteral Tube, DAILY, First dose on Tue05/30/22 at 1945, Until Discontinued 0810 ($ Given - Provider: Evelin Robles RN) 0809 ($ Given - Provider: Karla Ely RN) 0919 ($ Given - Provider: Zhang Gee, ALFRED) lacosamide (Vimpat) tablet 200 mg 200 mg, Enteral Tube, 2 TIMES DAILY, First dose on Tue05/30/22 at 2100, Until Discontinued 0810 ($ Given - Provider: Evelin Robles RN)223 ($ Given - Provider: China Mosley RN) 0809 ($ Given - Provider: Karla Ely RN)2112 ($ Given - Provider: Aylin Spangler) 0919 ($ Given - Provider: Zhang Gee, ALFRED) levETIRAcetam (Keppra) tablet 2,000 mg 2,000 mg, Enteral Tube, 2 TIMES DAILY, First dose on Tue05/30/22 at 2100, Until Discontinued, Do not crush or chew because of TASTE only. 0810 ($ Given - Provider: Evelin Robles RN)223 ($ Given - Provider: China Mosley RN) 0808 ($ Given - Provider: Karla Ely RN)211 ($ Given - Provider: Aylin Spangler) 0920 ($ Given - Provider: Zhang Gee RN) piperacillin - tazobactam (Zosyn) 3.375 g in 0.9% NaCl IV 55 mL IVPB (CANCELED) 3.375 g, at 13.75 mL/hr, Intravenous, EVERY 8 HOURS, First dose on Tue05/31/22 at 2330, Until Discontinued, Indication for anti-infective therapy: Documented infection, Site of anti-infective therapy: Lower Respiratory 0133 (Stopped - Provider: Loretta Trejo RN)0632 ($ New Bag/Syringe - Provider: Loretta Trejo RN)1053 (Stopped - Provider: Evelin Robles RN)1613 ($ New Bag/Syringe - Provider: Evelin Robles RN)2231 ($ New Bag/Syringe - Provider: China Mosley RN) 0005 (Stopped - Provider: China Mosley RN)0234 (Stopped - Provider: China Mosley RN)0826 ($ New Bag/Syringe - Provider: Karla Ely RN)1053 (Stopped - Provider: Karla Ely, RN) valproic acid (Depakene) solution 1,000 mg 1,000 mg, Enteral Tube, 2 TIMES DAILY, First dose on Tue05/31/22 at 2100, Until Discontinued 0810 ($ Given - Provider: Evelin Robles RN)2233 ($ Given - Provider: China Mosley RN) 0808 ($ Given - Provider: Karla Ely, RN)2113 ($ Given - Provider: Aylin Spangler) 0919 ($ Given - Provider: Zhang Gee RN) vancomycin (Vancocin) 1,250 mg in 250 mL NaCl IVPB Premix (CANCELED) 1,250 mg, at 200 mL/hr, Intravenous, EVERY 8 HOURS, First dose on Tue05/31/22 at 0000, Until Discontinued, Indication for anti-infective therapy: Suspected infection, Site of anti-infective therapy: Lower Respiratory 0156 ($ New Bag/Syringe - Provider: Loretta Trejo RN)0325 (Stopped - Provider: Loretta Trejo RN)1054 ($ New Bag/Syringe - Provider: Evelin Robles RN)1254 (Stopped - Provider: Evelin Robles RN) vancomycin (Vancocin) 1,500 mg in 500 mL NaCl IVPB Premix (CANCELED) 1,500 mg, at 333.33 mL/hr, Intravenous, EVERY 12 HOURS, First dose on Tue06/01/22 at 2300, Until Discontinued, Indication for anti-infective therapy: Suspected infection, Site of anti-infective therapy: Lower Respiratory 0238 ($ New Bag/Syringe - Provider: China Mosley RN)0238 (Rate Change - Provider: Aylin Spangler)0408 (Rate Change - Provider: Aylin Spangler)0412 (Paused - Provider: Aylin Spangler)0436 (Stopped - Provider: China Mosley RN)1739 ($ New Bag/Syringe - Provider: Karla Ely RN)1739 (Rate Change - Provider: Aylin Spangler)1739 (Current Rate - Provider: Aylin Spangler)1909 (Stopped - Provider: Aylin Spangler) 0200 ($ New Bag/Syringe - Provider: Aylin Spangler)0330 (Stopped - Provider: Aylin Spangler) Continuous Medication Order 06/01/2022 06/02/2022 06/03/2022 dextrose 5 % and 0.45% NaCl infusion (CANCELED) at 100 mL/hr, Intravenous, CONTINUOUS, Starting on Tue05/30/22 at 2015, Until Tue06/01/22 at 1705 0200 ($ New Bag/Syringe - Provider: Loretta Trejo RN)1350 ($ New Bag/Syringe - Provider: Evelin Robles RN) lactated ringers infusion () at 50 mL/hr, Intravenous, CONTINUOUS, Starting on Tue06/02/22 at 0945, Until Tue06/02/22 at 2144 1042 ($ New Bag/Syringe - Provider: Karla Ely RN) PRN Medication Order 06/01/2022 06/02/2022 06/03/2022 0.9% NaCl injection 1-10 mL(Linked Group 1) 1-10 mL, Intracatheter, PRN, Other, peripheral line flush, Starting on Tue05/30/22 at 1428, Until Tue06/03/22 at 1453, Flush peripheral IV catheter with 1-10 mL of normal saline before and after medications and prn to clear blood from the line or to verify patency. acetaminophen (Tylenol) tablet 650 mg 650 mg, Oral, EVERY 6 HOURS PRN, Mild Pain, Headache, Starting on Tue06/01/22 at 0148, Until Marian 06/03/22 at 1453, Patient preference for lesser PRN pain meds may be honored when the patient requests a less strong medication, a lower dose, or a less intrusive route of administration when the lesser drug, dose and route have been ordered for the patient. This patient request must be documented in the MAR. 0154 ($ Given - Provider: Loretta Trejo RN) ibuprofen (Motrin) tablet 400 mg 400 mg, Oral, EVERY 6 HOURS PRN, Moderate Pain, Starting on Tue06/01/22 at 0150, Until Marian 06/03/22 at 1453, Maximum allowable amount = 3200 mg / 24 hours. Patient preference for lesser PRN pain meds may be honored when the patient requests a less strong medication, a lower dose, or a less intrusive route of administration when the lesser drug, dose and route have been ordered for the patient. This patient request must be documented in the MAR. ondansetron (Zofran) injection 4 mg 4 mg, Intravenous, EVERY 6 HOURS PRN, Nausea/Vomiting, Starting on 06/01/22 at 0148, Until Marian 06/03/22 at 1453, Administer over 2 to 5 minutes. 0154 ($ Given - Provider: Loretta Trejo RN) Linked Groups Order Group 1: SALINE LOCK, INSERT AND MAINTAIN (CANCELED) Routine, CONTINUOUS, Starting on 05/30/22 at 1430, Until Specified, New collection, Task Completed: Yes And 0.9% NaCl injection 3 mLJump to med 3 mL, Intracatheter, EVERY 8 HOURS, First dose on 05/30/22 at 1500, Until Discontinued, Flush peripheral IV catheter with 3 mL of normal saline every 8 hours. And 0.9% NaCl injection 1-10 mLJump to med 1-10 mL, Intracatheter, PRN, Other, peripheral line flush, Starting on Tue05/30/22 at 1428, Until Marian 06/03/22 at 1453, Flush peripheral IV catheter with 1-10 mL of normal saline before and after medications and prn to clear blood from the line or to verify patency. 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 05/31/2022 05/31/2022 06/29/19 7:19 AM INSTRUCTIONAL TECHNOLOGY TEACHER documented as of this encounter Care Teams Field Service Technician Poultry Relationship Specialty Start Date End Date Joyce Luevano, SENIOR CLINICAL RESEARCH SCIENTIST-INFECTION CONTROL PREVENTIONIST [address] [place] [id number] PCP - General 03/08/22 11/17/23 Elizabeth Sullivan, ALFRED Gastroenterology Teacher 10/14/17 documented as of this encounter
--- OUTSIDE RECORDS SUMMARY | 2024-06-08 05:37 | XMS_ITS | Encounter Summary ---
Author Organization [facility] Address [address] [place] [address] Care Team Providers Care City Distribution Clerk Name Role Phone Elizabeth Sullivan RN Unavailable [phone] Joyce Luevano WINE BLENDER-JOB COUNSELOR Primary Care Provider [phone] Reason for Visit * Reason Comments Establish Care Oropharyngeal dyspha katarina Encounter Details Date Type Department Care Team (Latest Contact Info) Description 06/25/2022 10:45 AM DISHCLOTH FOLDER Office Visit [facility] [address] [place] [id number] Alden Hurtado MD [address] [place] [address] Dysphagia, oropharyngeal phase (Primary Dx) Social History Tobacco Use Types Packs/Day Years [...] Sign Reading Time Taken Comments Blood Pressure 143/88 06/25/2022 11:17 AM DISHCLOTH FOLDER Pulse 57 06/25/2022 11:17 AM DISHCLOTH FOLDER Temperature - - Respiratory Rate - - Oxygen Saturation - - Inhaled Oxygen Concentration - - Weight 47.6 kg (105 lb) 06/25/2022 11:17 AM DISHCLOTH FOLDER Height 170.2 cm (5' 7 ) 06/25/2022 11:17 AM DISHCLOTH FOLDER Body Mass Index 16.45 06/25/2022 11:17 AM DISHCLOTH FOLDER documented in this encounter Functional Status Functional [...] Yes 06/14/2022 documented as of this encounter Patient Instructions * Patient Instructions* Za Oliveira MA - 06/25/2022 11:11 AM DISHCLOTH FOLDER Thank you for visiting [facility] Ot[facility] - Head & Neck Surgery. We appreciate your confidence in allowing us to participate in your health care. You may receive a survey about your visit with us today. Making our patients happy isn???t just happy talk; it???s ourmission. Please tell us if we made the right impression on you- and how we can serve you better. Please SAVE the information below, it will assist you when it???s time for you to contact us. To MAKE - CHANGE - CANCEL an office appointment If you become ill, need to be seen before your next scheduled appointment, or need to cancel or reschedule an appointment, please call our office at [phone] Tuesday through Tuesday from 8:30 am to4:30 pm. You can also request a routine appointment through your [employer] account. Prescription Refills Contact your pharmacy to request all refills. The pharmacy will need to fax the request to us at . Please allow a minimum of 48-72 hours for your prescription to be completed. Your pharmacy will notify you when your prescription is ready to be picked up. Medical Emergency / After Hours Contact Information If you have a medical emergency, please call 911 or go to the nearest emergency room. For urgent medical calls, which cannot wait until the office opens, please call the medical exchange at and ask the yarn texturing machine operator to page the ENT physician relations liaison. *Caller ID blocking service will need to be turned off for your call to be returned. We also specialize in Hearing Aids, Allergy testing, swallowing disorders, voice problems, cancer diagnosis, and so much more. Visit our website at [email or web address] for information about our practice and an interactive health encyclopedia. CLOTH FOLDER documented in this encounter Progress Notes * Quyen Andersen - 06/25/2022 11:49 AM CST Chief Complaint Patient presents with ??? Establish Care Oropharyngeal dysphagia Referred by Dr. Carl HPI: Bi Tabor is a 62 year old male with a PMH significant for R. Occipital stroke (2015), head injury, seizures, Alzheimer's, Right BKA, refractory epilepsy, dysphasia w/PEG tube placement on 03/25/22. Seen in consultation on 05/14/22 for reversible etiology of patient's known zenker diverticulum.SNF had reported before his hospital admission that patient recently passed swallow eval in order to transition to PO meds for better bioavailability of anti-seizure medications given recent sub-therapeutic levels seen on labs. On admission, additional anti-seizure medications were given to bring levels to therapeutic ranges. CT head showed no acute process. Patient was seen by ADVERTISING DESIGNER and failed swal low eval and recommended transition back to PEG tube feeds. Modified barium swallow on 05/12/22 wasconcerning for zenker diverticulum. Surgical repair was discussed in the hospital to which he seemed hesitant to undergo, and presents to discuss his surgical options again in detail in a more alert state (he was post-ictal in the hospital and likely less aware of his discussions). He denies symptoms of odynophagia, fever, chills, night sweats, or Reflux. Medical History: Past Medical History: Past Medical History: Diagnosis Date ??? CVA (cerebral vascular accident) (CMS/HCC) ??? HTN (hypertension) ??? Seizure (CMS/HCC) Past Surgical History: History of BKA to the LLE Medications: Current Outpatient Medications Medication Sig ??? acetaminophen (Tylenol) 500 MG tablet 1 [...] Tube route once daily for 30 days ??? atorvastatin (Lipitor) 40 MG tablet 1 [...] Every 6 Hours (03,09,15,21) for 30 days ??? docusate sodium (Colace) 150 MG/15ML solution Take 15 mL by mouth as needed ??? fluticasone propionate (Flonase) 50 MCG/ACT nasal spray [place] 1 (one) spray into each nostril as [...] ??? midazolam (Nayzilam) 5 MG/0.1ML nasal spray [place]yenne 0.1 mL into the nose as needed for Seizures ??? polyethylene glycol 3350 (Miralax) 17 g packet 17 (seventeen) g by Enteral Tube route once daily for 30 days (Patient taking differently: 17 (seventeen) g by Enteral Tube route as needed) ??? tamsulosin (Flomax) 0.4 MG capsule Take 1 (one) capsule by mouth once daily At the same time every day after a meal. Please make sure it is via enteral tube. ??? thiamine (Vitamin B-1) 100 MG tablet 1 (one) tablet by Enteral Tube route once daily ??? Valproate Sodium (Valproic Acid) 250 MG/5ML Take 5 mL by mouth as directed No current facility-administered medications for this visit. Allergies: Allergies Allergen Reactions ??? Clonazepam Psychiatric hallucinations Family History: Negative for easy bruising/bleeding, problems with anesthesia, or head/neck cancer. Past Social History: Mr. Tabor is accompanied by his 2 sisters today. 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 Tobacco: Smokin pack-years,no longer smokind. Last drink was 2015, no current alcohol use. Review of Systems (negative unless bold): Constitutional: Fatigue, appetite change, weight change, sleep change HEENT: Rhinorrhea, vision changes, throat ache, dysphagia Respiratory: Dyspnea, wheezing, cough Cardiovascular: Decreased exercise tolerance, palpitations Gastrointestinal: Diarrhea, constipation, nausea, abdominal pain Musculoskeletal: Joint pain Neurological: Seizures, headaches Exam: Vitals: 06/25/22 1117 BP: 143/88 Pulse: 57 Weight: 47.6 kg (105 lb) Height: 1.702 m (5' 7 ) General: Awake and alert in no apparent distress breathing comfortably Face: No scars, lesions or masses visible or palpable Ears: Right Pinna normal, EAC shows cerumen impaction Left Pinna normal, EAC shows cerumen impaction Nose: External nose without lesions. Patent bilaterally, mucosa intact, septum without significant deviation Oral Cavity/Oropharynx: Lips without lesions. Tongue is mobile, palate elevates symmetrically. The buccal mucosa, palate, gingiva were examined and no lesions seen and no masses palpable Neck: No palpable lymphadenopathy bilaterally. Thyroid is low in the neck without palpable abnormalities. The salivary glands are without palpable masses. Voice: Strong, no stridor present Neurologic: Cranial nerves III-XII grossly intact No new imaging Assessment/Plan: Pt is a 62 year old male with Complex neurologic history with longstanding dysphagia admitted with seizure. He also has a hypopharyngeal diverticulum, consistent with a Zenker's diverticulum on esophagram on 05/12/22. Explained that although he may have multiple reasons for his dysphagia, that thisis largely may be due in part to his Zenker's. We discussed transoral and transcervical surgical approaches with him and his sisters. He was hesitant about any surgery in his throat, but after explanation he seemed amenable to surgery. We explained that the transoral approach would be attempted initially, and convert to transcervical approach if needed. Risks and benefits of the surgery were explained, including bleeding and risk of retropharyngeal neck infection, and they agreed to schedule the surgery followed by ADVERTISING DESIGNER follow up to help with his swallowing issues. Quyen Andersen, MS3 Otolaryngology, Head and Neck Surgery CLOTH FOLDER Associated attestation - Alden Hurtado MD - 06/27/2022 11:03 AM DISHCLOTH FOLDER Attending Physician Supervisory Note I have verified the documentation of the Medical student, including all history, exam, and medical decision-making details. I have personally performed a physical exam and have personally reviewed the data to support my medical decision-making as outlined in the student's note, and I arrived independently at the same conclusion. Date of Service: 06/25/22 Complex medical history presenting for follow up from inpatient consult for Zenker's diverticulum. Interval: He was post-ictal at the time and unable to participate, but now has recovered. Was briefly allows some PO diet but now fully gtube dependent and NPO again. Exam:No neck masses or incisions Imaging: esophogram done inpatient reviewed. Outside swallow studies not available. A/P: Zenker's diverticulum we discussed transoral versus transcervical diverticulectomy. We reviewed the expectations and general risks as well as the risk that his neurologic comorbidities may result in some residual dysphagia. After discussion with him and his two sisters, they are all in agreement to proceeding with surgery Alden Hurtado MD documented in this encounter Plan of Treatment Upcoming Encounters Date Type Department Care Team (Late st Contact Info) Description 12/05/2024 1:00 PM CDT Office Visit [facility] - Neurology [address] [place] [address], [place] [address] Sean Raymundo, [address] [place] [phone] documented as of this encounter Visit Diagnoses Diagnosis Dysphagia, oropharyngeal phase- Primary 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 05/31/2022 05/31/2022 06/29/19 7:19 AM DISHCLOTH FOLDER documented as of this encounter Care Teams City Distribution Clerk Relationship Specialty Start Date End Date Joyce Luevano, WINE BLENDER-JOB COUNSELOR [address] [place] [address] PCP - General 03/08/22 11/17/23 Elizabeth Sullivan, RN Interviewing Clerk 10/14/17 documented as of this encounter
--- OUTSIDE RECORDS SUMMARY | 2024-06-08 05:37 | XMS_ITS | Encounter Summary ---
Author Organization [facility] Health Address [address] [place] [address] Care Team Providers Care Coding Compliance Specialist Name Role Phone Elizabeth Sullivan RN Unavailable [phone] Joyce Luevano HOBBING PRESS OPERATOR-GAS STATION OPERATOR Primary Care Provider [phone] Reason for Visit * Auth/Cert (Routine) Specialty Diagnoses / Procedures Referred By Contac t Referred To Contact Referral ID Status Reason Start Date Expiration Date Visits Re quested Visits Authorized [id number] 1 1 Encounter Details Date Type Department Care Team (Late st Contact Info) Description 07/15/2022 7:28 AM SHOP ESTIMATOR Anesthesia Event [facility] [address] [place] [id number] Nima Campos II, DO [address] [place] [address] Martha De La Rosa Anes Asst [address] [place] [address] Anesthesia Record Procedure Summary Procedure Name Responsible Anesthesiologist Anesthesia Start Time Anesthesia Stop Time TRANSCERVICAL ZENKERS DIVERTICULECTOMY, OPEN TRACHEOSTOMY (Mouth) Nima Campos II, DO 07/15/22 0728 07/15/22 1100 Events Date Time Event Comment 07/15/2022 0728 An Start Pt transported from Icu to OR with help of anesthesia staff. Pt intubated, ventilated via Ambu bag on 100% O2 with RR 16-18 PEEP valve of 5. Pt fully monitored and uneventful transfer 28 Delay Awaiting T and S verification sample. RN unable to get IV to draw blood sample back. D/c to draw verification intra op. 0733 0742 Pt In Room 0742 An Start Data 0750 PT Reassessment 0750 Induction 0757 an henrietta now 0759 Insert Art Line 0805 Time Out Anesthesia part icipated in timeout at the time documented in the record by nursing 0811 Proc Start 0817 Quick Note Continued effor ts per anesthesia to attain second IV. L upper arm IV noted to be leaking clear fluid around catheter hub and thru Tegaderm (new onset) and +2 edematous L arm (pre-existing). Surgeon and attending aware. However, IV drip rate adequate and d/c to proceed. 0823 Local Infiltration by Surgeo n LA w/ epi. See MAR for details 1003 Quick Note ETT retrtacted/ airline pilot flight instructor balloon deflated. VSS prior to tracheostomy exchange for 6.0 shiley with cuff inflated. +ETCo2, adequate Vt/Ve with PIP within nL. 1003 Extubation ETT removed, tr ach place during surgery 1047 Quick Note Pt transferred to floor bed with hemodynamic changes. Attending aware and in room. See anesthesia record for medication intervention 1055 an stop data 1055 Pt out of Room 1055 ANPTO2 1055 Transport To Patient was tra nsported to: ICU fully monitored and ventilated via ambu bag/PEEP 5 on 100% O2. Uneventful transfer. Trach site reassessed c/d/I and secured with trach ties. In-line suction- clear. HOB elevated with adequate Vt/Ve/PIP 1055 An Emergence 1100 An Stop Meds Name Total propofol 200mg/20mL injection 50 mg rocuronium 50 mg/5 mL injection 100 mg phenylephrine 100 mcg/mL syringe 800 mcg glycopyrrolate 0.4 mg/2mL injection 0.3 mg sugammadex 200 mg/2mL injection 200 mg fentaNYL 100 mcg/2ml injection 300 mcg labetalol 5 mg/mL injection 10 mg ampicillin-sulbactam (Unasyn) 3 g inject ion 3 g ePHEDrine injection 10 mg LR (Lactated ringers) 850 mL Isolyte-S infusion 800 mL * Agents Name Insp. N2O Exp. Sevoflurane Exp. N2O O2 Air Insp. Sevoflurane * Blood No blood administrations on file. Lines, Drains, and Airways Type Details Placement Removal Enteral - 03/25/22; 165; Werner Ann MD; PEG; Abdomen, Midline, Upper; 24; Well; 12/14/22; 1556; Dr. Payton; Other (Comments) (conversion to gj) 03/25/22 1654 by Lila Nguyễn RN 12/14/22 1556 by Tiffani Moreno RN Other Wound 06/29/22; 1999; Anterior, Lower, Proximal, Right; Arm; 07/20/22 (healed); 02106/29/221999 by Lola Loco RN 07/20/22 021 by Viri Olson RN Other Wound 07/03/22; 1840; Left ; Ear; 07/20/22 (healed); 02107/03/22 1840 by Karen Lawrence RN 07/20/22 021 by Viri Olson RN Other Wound 07/03/22; 1840; Righ t; Ear; 07/20/22 (healed); 02107/03/22 184 by Karen Lawrence RN 07/20/22 021 by Viri Olson RN ETT Date: 07/05/22; Time : 2127; Placed By: Shannon Nino MD; Vent: easy mask; Induction: Rapid Sequence; Blade Type: King; Blade Size: 4; Intubation Adjuncts: Video Laryngoscope; Tube: Endotracheal Tube; Placement: Oral; Tube Size(mm): 8 MM; Depth of Insertion: 26 CM; Measured From: lips; Attempts: 1; Verified By: CO2 Detector, Bilateral breath sounds 07/05/222127 by Tonja Meadows RN 07/15/22 1003 by Charlie Perry Anes Asst Peripheral IV Date: 07/10/22; Time : 0200; Orientation: Anterior, Left, Upper; Placed By: Kandi Olson 07/10/22 0200 by Viri Olson RN 07/15/22 1145 by Araceli Arceo RN Urethral Catheter 07/15/22; 0615; RN; Non-latex; No; 16; 10 mL; Yes, Seal Intact; 1; Well; 07/19/22; 0354; Susan SIMON 07/15/22 0615 by Araceli Arceo RN 07/19/22 0354 by Susan Tam RN Arterial Line Date: 07/15/22; Time : 0759; Placed By: Nima Campos II, DO; Location: radial; Gauge: 20; Tolerance: General Anesthesia 07/15/22 0759 by Charlie Perry Anes Asst 07/19/22 0430 by Susan Tam RN Urethral Catheter 07/15/22; 0830; JULIANNE GALVAN RN; Straight-tip, Non-latex, Temperature probe; No; 16; 10 mL; Yes, Seal Intact; 1; General Anesthesia; 07/15/22; 1045; Per order; ELIF GALVAN RN 07/15/22 0830 by Elif Galvan RN 07/15/22 1045 by Elif Galvan RN Peripheral IV Date: 07/15/22; Time : 0840; Orientation: Right; Placed By: Heena HO; Length (in): 2in; Tolerance: General Anesthesia 07/15/22 0840 by Charlie Perry Anes Asst 07/17/22 0642 by Susan Tam RN Procedural Site (Incision) 07/15/22; 0909; Left; Neck; EXOFIN; 07/21/22; 2319 07/15/22 0909 by Elif Galvan RN 07/21/22 2319 by Generic, Auto Release Trach 07/15/22; 0943; DR CALLAHAN; Shiley; Air; 6 MM; 7.5 FR; General Anesthesia; 10/09/22 (Removal date is unknown patient has a Bivona TTS in not a shiley.); Not present on admission, removal date unknown (patient has bivona. not shiley) 07/15/22 0943 by Elif Galvan RN 10/09/22 0000 by Everett Fraga RCP documented in this encounter Social History Tobacco [...] medical care, and heating? Patient declined 07/05/2022 [facility] [...] Yes 07/05/2022 documented as of this encounter Progress Notes * Nima Campos II, DO - 07/15/2022 12:00 PM CST ANESTHESIA POSTOP EVALUATION NOTE Procedure: TRANSCERVICAL ZENKERS DIVERTICULECTOMY, OPEN TRACHEOSTOMY (Mouth) Bi Tabor is a 62 year old male No data found. Anesthesia Type: general Pre-op Diagnosis Codes: * Dysphagia, oropharyngeal phase [R13.12] Mental Status: neurologic status has returned to expected level of consciousness Respiratory Function: mechanical ventilation Cardiac Function: stable Postop Pain: adequate Postop Hydration: adequate Postop Nausea: none Assessment: no apparent anesthetic complications and patient tolerated procedure well Patient Disposition: Release from Anesthesia Care Additional Comments: Patient transported to ICU in stable condition NOTABLE EVENTS: No notable events documented. * Nima Campos II, DO - 07/14/2022 2:07 PM CST ANESTHESIA PREOPERATIVE EVALUATION NOTE Procedure: TRANSORAL VERSUS TRANSCERVICAL ZENKERS DIVERTICULECTOMY (Mouth) Vitals: No data found. LMP: No LMP for male patient. OB Status: unknown ANESTHESIA PRE-EVALUATION NOTE History of Present Illness: Bi Tabor is a 62 year old male w/ PMHx significant for CVA with residual L sided defects, history of seizure disorder, dementia, dysphagia with recurrent aspiration (PEG-dependent), Zenker diverticulum, hypertension, BPH, PAD s/p L AKA d/t non-healing foot wound (02/2022), who initially presented to [facility] ED on 1/30 with complaints of hypoxia. The patient is a fpc resident at [facility]. Imaging in ED showed likely [...] Opening eyes to commands; Following commands inconsistently Patient is now scheduled for the listed procedure. Previous Airway Management: ETT Placed: ETT Size: 8 Blade Type: MAC Blade Size: 4 GradeGrade: 3 Mask Airway: Oral Airway The patient is a current non-smoker. Physical Exam: No Orientation X3 Airway/Mallampati Score: II Mouth Opening Distance: 3 fingerwidths Neck ROM: limited TM Distance: > 3 FB Pre-existing Airway: ETT Tube Teeth: poor dentition Heart: normal - S1 S2 Lungs: clear to ausculation bilaterally Abdomen Exam: scaphoid Review of Systems: Renal Disease: No Diagnostic Tests: Echo(s) reviewed: Yes. Lab(s) reviewed: Yes. Other Findings: 03/11/2022 TTE Summary: The left ventricle is normal size. Left ventricular systolic function is mildly decreased with an ejection fraction by Biplane Method of Discs of 47 %. Left ventricular segmental wall motion is abnormal, please see wall motion graphic. The left ventricular diastolic function is abnormal ANESTHESIA PLAN ASA Score: 4 NPO Status: Patient instructed to be NPO after midnight Anesthesia Plan: general ETT Planned Induction: intravenous Planned Postop Destination: PACU and ICU ICU Plans: ventilation Anesthetic plan was discussed with: patient Anesthetic Plan discussion was: Consented Use of blood products were discussed with: patient Use of blood product discussion was: Consented The patient's procedural Anesthetic Plan was discussed with the certified ophthalmic assistant and MIXING MACHINE OPERATOR. I have reviewed the patient's chart I have interviewed the patient I have examined the patient I have reviewed the plan for the patient I agree with the documentation and have discussed the anesthesia plan I have discussed the anesthesia plan The patient agrees Yes - I attest to documenting, updating or reviewing a patient's current medications using all immediate resources available on the date of the encounter. This list must include ALL known prescriptions, liha-urz-yyjlaaxc, herbals, and vitamin/mineral/dietary (nutritional) supplements AND must contain the medications' name, dosages, frequency and route of administration Other - reviewed Additional Attending Attestation Comments: ASA 4 geta with standard monitors and invasive areterialmonitoring BMI, Height, Weight Tobacco History Estimated body mass index is 18.03 kg/m?? as calculated from the following: Height as of 06/27/22: 1.854 m (6' 1 ). Weight as of 07/12/22: 62 kg (136 lb 11 oz). Social History Tobacco Use Smoking Status Former ??? Packs/day: 1.00 ??? Years: 15.00 ??? Pack years: 15.00 ??? Types: Cigarettes Smokeless Tobacco Never Alcohol History Drug History Social History Substance and Sexual Activity Alcohol Use No Comment: last drink 2015 Social History Substance and Sexual Activity Drug Use No Comment: occasional Outpatient Medications: Inpatient Medications: No outpatient medications have been marked as taking for the 07/15/22 encounter (Anesthesia Event) with Martha De La Rosa Anes Asst. No current facility-administered medications for this visit. Facility-Administered Medications Ordered in Other Visits Medication Dose Last Admin ??? 0.9% NaCl 3 mL 3 mL at 07/14/22 1328 And ??? 0.9% NaCl 1-10 mL ??? acetaminophen 500 mg 500 mg at 06/30/22 1427 ??? albuterol 2.5 mg 2.5 mg at 07/14/22 1245 ??? artificial tears Given at 07/14/22 1328 ??? artificial tears 1 drop ??? aspirin 81 mg 81 mg at 07/14/22 08 ??? atorvastatin 40 mg 40 mg at 07/14/22819 ??? bisacodyl 10 mg ??? chlorhexidine 15 mL 15 mL at 07/14/22 08 ??? cloBAZam 20 mg 20 mg at 07/14/22 08 ??? divalproex sprinkle 500 mg 500 mg at 07/14/22820 ??? famotidine 20 mg 20 mg at 07/14/22819 ??? fentaNYL (PF) 25 mcg ??? lacosamide 200 mg 200 mg at 07/14/22820 ??? levETIRAcetam 500 mg 500 mg at 07/14/22819 ??? oxybutynin 5 mg 5 mg at 07/14/22819 ??? polyethylene glycol 3350 17 g 17 g at 07/14/22820 ??? sodium chloride (Inhalant) 4 mL 4 mL at 07/14/22 1246 ??? tamsulosin 0.4 mg 0.4 mg at 07/14/22819 Allergies: Allergies Allergen Reactions ??? Clonazepam Psychiatric hallucinations Relevant Problems Cardiovascular (+) Hypertension (+) PAD (peripheral artery disease) (CMS/HCC) (+) Paroxysmal tachycardia, unspecified (CMS/HCC) (+) Syncope and collapse Neuro/Psych (+) Cerebrovascular accident (CMS/HCC) (+) Epilepsy, unspecified, not intractable, without status epilepticus (CMS/HCC) (+) History of CVA (cerebrovascular accident) (+) History of stroke (+) Seizure (CMS/HCC) (+) Seizures (CMS/HCC) (+) Status epilepticus (CMS/HCC) Pulmonary (+) Pneumonia of right lower lobe due to infectious organism (+) Contrast-induced nephropathy Other (+) Other specified rheumatoid arthritis, unspecified site (CMS/HCC) Problem List: Patient Active Problem List Diagnosis Date Noted ??? COVID-19 04/14/2021 Priority: High ??? History of CVA (cerebrovascular accident) 12/11/2020 Priority: High ??? Cognitive communication deficit 08/25/2020 Priority: High ??? Dysphagia, oropharyngeal phase 08/25/2020 Priority: High ??? Difficulty in walking, not elsewhere classified 05/24/2020 Priority: High ??? Muscle weakness (generalized) 05/24/2020 Priority: High ??? Epilepsy, unspecified, not intractable, without status epilepticus ([facility]) 05/25/2019 Priority: High ??? Hemiplegia and 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-dominant side ([facility]) 05/25/2019 Priority: High ??? Alzheimer's disease with early onset ([facility]) 05/17/2019 Priority: High ??? Paroxysmal tachycardia, unspecified ([facility]) 05/16/2019 Priority: High ??? Alcohol abuse, uncomplicated 08/13/2015 Priority: High ??? Benign neoplasm of prostate 06/26/2015 Priority: High ??? Other specified rheumatoid arthritis, unspecified site [place] 06/26/2015 Priority: High ??? Syncope and collapse 06/26/2015 Priority: High ??? Hyperkalemia 07/11/2022 Priority: Not Prioritized ??? Atelectasis, right 07/05/2022 Priority: Not Prioritized ??? Contrast-induced nephropathy 07/05/2022 Priority: Not Prioritized ??? Zenker diverticula 07/05/2022 Priority: Not Prioritized ??? Hypernatremia 07/05/2022 Priority: Not Prioritized ??? Leukocytosis, unspecified type 06/28/2022 Priority: Not Prioritized ??? Tachycardia 06/28/2022 Priority: Not Prioritized ??? Hypoxia 06/28/2022 Priority: Not Prioritized ??? Acute respiratory failure with hypoxia [place] 06/28/2022 Priority: Not Prioritized ??? Pneumonia of right lower lobe due to infectious organism 06/28/2022 Priority: Not Prioritized ??? Aspiration pneumonitis ([facility]) 06/13/2022 Priority: Not Prioritized ??? Aspiration into airway 06/12/2022 Priority: Not Prioritized ??? Protein-calorie malnutrition, unspecified severity ([facility]) 06/03/2022 Priority: Not Prioritized ??? Abdominal pain, generalized 05/30/2022 Priority: Not Prioritized ??? Lethargy 05/30/2022 Priority: Not Prioritized ??? History of stroke 05/30/2022 Priority: Not Prioritized ??? Pulmonary infiltrate 05/30/2022 Priority: Not Prioritized ??? Acute on chronic respiratory failure with hypoxia ([facility]) 05/30/2022 Priority: Not Prioritized ??? Bacteremia 03/11/2022 Priority: Not Prioritized ??? Ulcer of left foot ([facility]) 03/11/2022 Priority: Not Prioritized ??? PAD (peripheral artery disease) ([facility]) 03/11/2022 Priority: Not Prioritized ??? Protein calorie malnutrition ([facility]) 03/11/2022 Priority: Not Prioritized ??? Sepsis without acute organ dysfunction ([facility]) 03/08/2022 Priority: Not Prioritized ??? Status epilepticus ([facility]) 12/30/2021 Priority: Not Prioritized ??? Acute encephalopathy 12/30/2021 Priority: Not Prioritized ??? Seizures ([facility]) 08/13/2020 Priority: Not Prioritized ??? Therapeutic procedure Priority: Not Prioritized ??? Cerebrovascular accident ([facility]) 06/13/2019 Priority: Not Prioritized ??? Insomnia 06/13/2019 Priority: Not Prioritized ??? Low back pain 06/13/2019 Priority: Not Prioritized ??? Osteoporosis 11/22/2018 Priority: Not Prioritized ??? Seizure ([facility]) 10/13/2017 Priority: Not Prioritized ??? Hypertension 07/24/2015 Priority: Not Prioritized ??? Hyperlipidemia 04/14/2015 Priority: Not Prioritized Last Assessment & Plan: Continue home meds and monitor ??? 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 CVA (cerebral vascular accident) ([facility]) ??? HTN (hypertension) ??? Seizure ([facility]) Surgical History: Past Surgical History: Procedure Laterality Date ??? ENDOSCOPY, UPPER N/A 03/25/2022 N/A; ESOPHAGOGASTRODUODENOSCOPY (EGD) DIAGNOSTIC with PEG Placement ??? Leg Amputation, Below Knee Left 03/15/2022 Left; LEFT BKA POSS AKA DIABETES TRAINER Status: No LMP for male patient. unknown OB History No obstetric history on file. Covid Vaccine: Lab Results: Recent Labs Component Name 06/30/221951 SARSCOV2 Not detected Recent Labs Base Name 07/01/22 0507 [id number] 125* SPECIMENTYPE Cap Fingerstick Recent Labs Component Name 07/14/22 0411 WBC 6.8 RBC 2.72* HCT 24.8* HGB 8.2* PLTCOUNT 146* MCV 91.2 MCH 30.1 MCHC 33.1 MPV 12.9 Recent Labs Component Name 07/04/22 0145 07/02/22 1137 BLOODU Negative Negative WBCU 6-10* 6-10* NITRITE Negative Negative PROTEINU Negative 1+* CREATININEUR - 26 Recent Labs Component Name 07/14/22 0411 POTASSIUM 3.5 CALCIUM 9.6 CO2 25 GLUCOSE 92 BUN 34* CREATININE 1.30* Recent Labs Component Name 07/14/22 0411 MAGNESIUM 1.8 Recent Labs Component Name 07/14/22 0411 PHOS 3.0 Recent Labs Component Name 07/06/22 0518 07/03/22 1739 05/11/22 1309 PH 7.48* - 7.36 PO2 69* - - PCO2 32* - - BE 0.7 - - PO2VEN - - 31* LTB9KIP - - 53* KUR2OBS - - 29.9 BEVEN - - 3.3* Q9LIDEJUU - - 8.0 Z9LIEEUY - - 44* - = values in this interval not displayed. Recent Labs Component Name 06/27/22 2215 PT 12.8 INR 1.0 Recent Labs Component Name 07/04/22 0145 TSH 1.955 Recent Labs Result Component Current Result Troponin I <0.010 (06/28/2022) Recent Labs Result Component Current Result Alkaline Phosphatase 65 (06/30/2022) ALT 5 (06/30/2022) Anion Gap 14 (07/14/2022) AST 13 (06/30/2022) eGFR by CKD-EPI 63 (L) (07/14/2022) Amisha Rivera Asst 2:09 PM ESTIMATOR documented in this encounter Procedure Notes * Nima Campos II, DO - 07/15/2022 9:55 AM CSTAssociated Order(s): Arterial Line Placement Arterial Line Placement Procedure Note Patient Location: OR. Procedure: Arterial Line (02618). Procedure Section Indications: blood sampling needed and continuous blood pressure monitoring. Consent: a time out was performed for patient safety, informed consent was obtained for the procedure, including sedation and informed consent was obtained for the procedure. Skin Prep: Chloraprep. Site: radial. Site Identification: palpation. Sterile Technique: cap, mask, sterile gloves and small sterile fenestrated drape. Gauge: 20. Seldinger Technique Used? Yes Number of Attempts: 1. Line Secured with: Tegaderm (CHG tegaderm). Procedure Tolerance: performed while patient under general anesthesia. Events: none. Procedure Start Time: 07/15/2022 7:59 AM. Staff Section Anesthesia Provider: Nima Campos II, DO, Performed the procedure ESTIMATOR documented in this encounter Miscellaneous Notes * Anesthesia Transfer of Care - Charlie Perry Anes Asst - 07/15/2022 11:00 AM CST ANESTHESIA TRANSFER OF CARE NOTE Today's Date: 07/15/2022 Date of : 1960 Patient: Bi Tabor Procedure(s): TRANSCERVICAL ZENKERS DIVERTICULECTOMY, OPEN TRACHEOSTOMY Surgeon(s): Primary: Alden Callahan MD Resident - Assisting: Rodrigo Lobo MD; Svetlana Lewis MD Preop Diagnosis: Pre-op Diagnois: * Dysphagia, oropharyngeal phase [R13.12] Pre-op Meds (From admission, onward) Start Stop Status Route Frequency Ordered 06/28/22 0256 0.9% NaCl injection 1-10 mL See Hyperspace for full Linked Orders Report. -- Dispensed IK PRN 06/28/22 0256 06/28/22 0600 0.9% NaCl injection 3 mL See Hyperspace for full Linked Orders Report. -- Dispensed IK EVERY 8 HOURS 06/28/22 0256 06/28/22 0441 acetaminophen (Tylenol) tablet 500 mg -- Dispensed Enteral Tube EVERY 4 HOURS PRN 06/28/22 0441 07/14/22 1215 albuterol (Proventil;Ventolin) (5 MG/ML) 0.5% nebulizer solution 2.5 mg -- Dispensed IN EVERY 12 HOURS 07/14/22 1134 07/05/22 220 artificial tears ophthalmic ointment -- Dispensed BOTH EYES EVERY 8 HOURS 07/05/22205206/28/22 034 artificial tears ophthalmic solution 1 drop Note to Pharmacy: OP sig: Instill 1 (one) drop into both eyes 3 times daily as needed -- Dispensed BOTH EYES 3 TIMES DAILY PRN 06/28/22 0347 06/28/22 09 aspirin chew tablet 81 mg Note to Pharmacy: OP si (one) tablet by Enteral Tube route once daily for 30 days -- Dispensed Enteral Tube DAILY 06/28/22 03406/28/22 09 atorvastatin (Lipitor) tablet 40 mg Note to Pharmacy: OP si (one) tablet by Enteral Tube route once daily -- Dispensed Enteral Tube DAILY 06/28/22 0308 06/28/22 030 bisacodyl (Dulcolax) suppository 10 mg Note to Pharmacy: Remove suppository from foil packaging and insert into rectum. Retain for 15 minutes or as long as tolerated. -- Verified RE DAILY PRN 06/28/22 0308 07/05/222129 chlorhexidine (Peridex) 0.12 % oral solution 15 mL -- Dispensed MT 2 TIMES DAILY 07/05/22205206/28/22 09 cloBAZam (Onfi) tablet 20 mg Note to Pharmacy: OP si (one) tablet by Enteral Tube route 2 times daily -- Dispensed Enteral Tube 2 TIMES DAILY 06/28/22 0308 07/15/22 0810 EPINEPHrine-NaCl 0.9% syringe -- Sent PRN 07/15/22 0912 07/10/22 09 famotidine (Pepcid) tablet 20 mg -- Dispensed Enteral Tube DAILY 07/09/22 0939 07/07/22 0945 fentaNYL (PF) (Sublimaze) injection 25 mcg -- Verified IV EVERY 1 HOUR PRN 07/07/22 0945 07/15/22 09 lacosamide (Vimpat) injection 200 mg -- Verified IV 2 TIMES DAILY 07/15/22 0918 07/15/22 09 levETIRAcetam (Keppra) 500 mg in 100 mL IVPB -- Verified IV EVERY 12 HOURS 07/15/22 0918 07/15/22 0810 lidocaine 1% (Xylocaine-MPF) - EPINEPHrine 1:100,000 injection -- Sent PRN 07/15/22 0911 07/07/22 1030 oxybutynin (Ditropan) tablet 5 mg -- Dispensed Enteral Tube 2 TIMES DAILY 07/07/22 0946 06/28/22 0900 polyethylene glycol 3350 (Miralax) packet 17 g -- Dispensed Enteral Tube DAILY 06/28/22 0347 07/14/22 1215 sodium chloride (Inhalant) 7 % nebulizer solution 4 mL -- Dispensed IN 2 TIMES DAILY 07/14/22 1134 06/28/22 0900 tamsulosin (Flomax) capsule 0.4 mg Note to Pharmacy: Administer at the same time every day after a meal. Capsule may be opened and contents administered via enteral tube. -- Dispensed PO DAILY 06/28/22 0308 07/15/22 0300 valproate (Depacon) 500 mg in 0.9% NaCl IV 55 mL IVPB -- Dispensed IV EVERY 6 HOURS (03,09,15,) 07/15/22 0215 Post-op Diagnosis: * Dysphagia, oropharyngeal phase [R13.12] . Allergies Allergen Reactions ??? Clonazepam Psychiatric hallucinations Vitals: No data found. Lines, Drains, and Airways Type Details Placement Removal Enteral - 03/25/22; 1653; Jolynn Ann MD; PEG; Abdomen, Midline, Upper; 24; Well 03/25/221653 byLila Nguyễn, ALFRED ETT Date: 07/05/22; Time: 2127; Placed By: Shannon Nino MD; Vent: easy mask; Induction: Rapid Sequence; Blade Type: King; Blade Size: 4; Intubation Adjuncts: Video Laryngoscope; Tube: Endotracheal Tube; Placement: Oral; Tube Size(mm): 8 MM; Depth of Insertion: 26 CM; Measured From: lips; Attempts: 1; Verified By: CO2 Detector, Bilateral breath sounds 07/05/222127 by Tonja Meadows RN 07/15/22 1003 by Charlie Perry Anes Asst Peripheral IV Date: 07/10/22; Time: 0200; Orientation: Anterior, Left, Upper; Location: Arm; PlacedBy: Kandi Olson; Gauge: 20 Gauge 07/10/22 0200 by Viri Olson RN Arterial Line Date: 07/15/22; Time: 0759; Placed By: Nima Campos II, DO; Location: radial; Gauge: 20; Tolerance: General Anesthesia 07/15/22 0759 by Charlie Perry Anes Asst Peripheral IV Date: 07/15/22; Time: 0840; Orientation: Right; Location: Leg; Placed By: Heena HO; Length (in): 2in; Gauge: 16 Gauge; Tolerance: General Anesthesia 07/15/22 0840 by Charlie Perry Anes Asst Intraprocedure I/O Totals Intake Isolyte-S infusion 800.00 mL LR (Lactated ringers) 850.00 mL Total Intake 1650 mL Output Urine 950 mL Estimated Blood Loss 50 mL Total Output 1000 mL Net Net Volume 650 mL Patient Transfer Location: ICU Transport Airway: supplemental O2, ventilatory assistance with bag valve mask and other - please comment (Trach) Transport Monitoring: lunchroom monitor, frequent blood pressure checks, continuous pulse oximetry and heart rate Complications: None Handoff Given? Yes Amisha Alvarado ESTIMATOR documented in this encounter Plan of Treatment Upcoming Encounters Date Type Department Care Team (Late st Contact Info) Description 12/05/2024 1:00 PM CDT Office Visit [facility] - Neurology [address] [place] [address], [facility] [place] [phone] Sean Raymundo DO [address] [place] [address] [place] [phone] documented as of this encounter Procedures Procedure Name Priority Date/Time Associated Diagnosis Comments ARTERIAL LINE NOTE Routine 07/15/2022 9: 55 AM SHOP ESTIMATOR documented in this encounter Results * ARTERIAL LINE PERFORMABLE (07/15/2022 9:55 AM SHOP ESTIMATOR) Narrative Nima Campos II, DO - 07/15/2022 9:55 AM SHOP ESTIMATOR Nima Campos II, DO ? 07/15/2022 11:16 AM Arterial Line Placement Procedure Note Patient Location: OR. Procedure: Arterial Line (81048). Procedure Section ?? Indications: blood sampling needed [...] Campos II, DO GENERAL ANESTH ESIA ORDERABLES documented in this encounter Visit Diagnoses Not on filedocumented in this encounter Administered Medications Inactive Administered Medications - up to 3 most recent administrations Medication Order MAR Action Action Date Dose Rate Site ampicillin-sulbactam (Unasyn) injection Intravenous, PRN, Starting on Marian 07/15/22 at 0809, Until Marian 07/15/22 at 1106, Anesthesia Intra-op $ Given 07/15/2022 8:09 AM SHOP ESTIMATOR 3 g ePHEDrine injection Intravenous, PRN, Starting on Marian 07/15/22 at 1050, Until Marian 07/15/22 at 1106, Anesthesia Intra-op $ Given 07/15/2022 10:50 AM SHOP ESTIMATOR 10 mg fentaNYL (PF) (Sublimaze) injection Intravenous, PRN, Starting on Marian 07/15/22 at 0806, Until Marian 07/15/22 at 1106, Anesthesia Intra-op $ Given 07/15/2022 10:39 AM SHOP ESTIMATOR 50 mcg $ Given 07/15/2022 9:16 AM SHOP ESTIMATOR 50 mcg $ Given 07/15/2022 9:04 AM SHOP ESTIMATOR 50 mcg glycopyrrolate (Robinul) injection Intravenous, PRN, Starting on Marian 07/15/22 at 0926, Until Marian 07/15/22 at 1106, Anesthesia Intra-op $ Given 07/15/2022 9:29 AM SHOP ESTIMATOR 0.1 mg $ Given 07/15/2022 9:26 AM SHOP ESTIMATOR 0.2 mg isolyte-S pH 7.4 infusion Intravenous, CONTINUOUS PRN, Starting on Marian 07/15/22 at 0840, Until Marian 07/15/22 at 1106, Anesthesia Intra-op $ New Bag/Syringe 07/15/2022 8:40 AM SHOP ESTIMATOR labetalol (Normodyne; Trandate) injection Intravenous, PRN, Starting on Marian 07/15/22 at 0817, Until Marian 07/15/22 at 1106, Anesthesia Intra-op $ Given 07/15/2022 8:17 AM SHOP ESTIMATOR 10 mg lactated ringers infusion Intravenous, CONTINUOUS PRN, Starting on Marian 07/15/22 at 0728, Until Marian 07/15/22 at 1106, Anesthesia Intra-op Restarted 07/15/2022 10:12 AM SHOP ESTIMATOR $ New Bag/Syringe 07/15/2022 7:28 AM SHOP ESTIMATOR phenylephrine 100 mcg/mL injection Intravenous, PRN, Starting on Marian 07/15/22 at 0929, Until Marian 07/15/22 at 1106, Anesthesia Intra-op $ Given 07/15/2022 10:50 AM SHOP ESTIMATOR 200 mcg $ Given 07/15/2022 10:22 AM SHOP ESTIMATOR 200 mcg $ Given 07/15/2022 10:12 AM SHOP ESTIMATOR 200 mcg propofol (Diprivan) injection Intravenous, PRN, Starting on Marian 07/15/22 at 0812, Until Marian 07/15/22 at 1106, Anesthesia Intra-op $ Given 07/15/2022 8:12 AM SHOP ESTIMATOR 50 mg rocuronium (Zemuron) injection Intravenous, PRN, Starting on Marian 07/15/22 at 0752, Until Marian 07/15/22 at 1106, Anesthesia Intra-op $ Given 07/15/2022 8:14 AM SHOP ESTIMATOR 50 mg $ Given 07/15/2022 7:52 AM SHOP ESTIMATOR 50 mg sugammadex (Bridion) injection Intravenous, PRN, Starting on Marian 07/15/22 at 0916, Until Marian 07/15/22 at 1106, Anesthesia Intra-op $ Given 07/15/2022 9:16 AM SHOP ESTIMATOR 200 mg documented in this encounter Additional Health Concerns Infection Onset Date Last Indicated Resolved Time MRSA Comment:06/13/23 Nasal MRSA doesn't require iso, ES 06/29/2022 06/11/2023 06/13/2023 10:14 AM SHOP ESTIMATOR documented as of this encounter Care Teams Coding Compliance Specialist Relationship Specialty Start Date End Date Joyce Luevano, HOBBING PRESS OPERATOR-GAS STATION OPERATOR [address] [place] [address] PCP - General 03/08/22 11/17/23 Elizabeth Sullivan, RN Labor Expediter 10/14/17 documented as of this encounter
--- OUTSIDE RECORDS SUMMARY | 2024-06-08 05:37 | XMS_ITS | Encounter Summary ---
Author Organization [facility] Health Address [address] [place] [address] Care Team Providers Care Warehouse Receiving Supervisor Name Role Phone Elizabeth Sullivan RN Unavailable [phone] Joyce Luevano CABIN AGENT-PARTS TECHNICIAN Primary Care Provider [phone] Reason for Visit * Reason Onset Date Comments Medication Prior Auth Request 06/17/2022 Encounter Details Date Type Department Care Team (Late st Contact Info) Description 06/17/2022 Telephone [facility] [address] [facility], [place] [address] Yana Rm APRN-CNP [address] [place] [address] Medication Prior Auth Request Social [...] Telephone Encounter - Michaela Bass RN - 06/18/2022 8:41 AM CST PA approved by Raf for divalproex sodium 125mg caps as below: 06/17/22-06/17/2023. Contacted pharmacy. TER MOLD MAKER * Telephone Encounter - Michaela Bass RN - 06/17/2022 9:57 AM CST PA initiated with Raf via fax for divalproex sodium 125mg sprinkle caps. Included last visit notes dated 02/16/22 and 05/06/22. Will await a response. TER MOLD MAKER documented in this encounter Plan of Treatment Upcoming Encounters Date Type Department Care Team (Late st Contact Info) Description 12/05/2024 1:00 PM CDT Office Visit [facility] - Neurology [address] [place] [address] [place] [phone] Sean Raymundo, DO [address] [place] [address] documented as of this encounter Visit Diagnoses Not on file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 05/31/2022 05/31/2022 06/29/19 7:19 AM PLASTER MOLD MAKER documented as of this encounter Care Teams Warehouse Receiving Supervisor Relationship Specialty Start Date End Date Joyce Luevano, CABIN AGENT-PARTS TECHNICIAN [address] [place] [address] PCP - General 03/08/22 11/17/23 Elizabeth Sullivan, RN Skiing Instructor 10/14/17 documented as of this encounter
--- OUTSIDE RECORDS SUMMARY | 2024-06-08 05:37 | XMS_ITS | Encounter Summary ---
Author Organization [facility] Health Address [address] [place] [address] Care Team Providers Care Steel Manager Name Role Phone Elizabeth Sullivan RN Unavailable [phone] Joyce Luevano DIRECTOR CONSUMER-LEARNING SERVICES COORDINATOR Primary Care Provider [phone] Reason for Visit * Reason Comments Weakness Pt BIBEMS from [facility] Home with a C/O fever, weakness and Lethargica. AO*2 ( baseline as Per EMS), J tube in placed. * Auth/Cert (Routine) Specialty Diagnoses / Procedures Referred By Contac t Referred To Contact Referral ID Status Reason Start Date Expiration Date Visits Re quested Visits Authorized [id number] 1 1 Encounter Details Date Type Department Care Team (Late st Contact Info) Description 06/11/2022 8:05 PM MATERIAL ASSISTANT - 06/15/2022 4:58 PM MATERIAL ASSISTANT Hospital Encounter [facility] 7S ACUTE [address] [place] [address] Serjio Vilchis MD [address] [facility] DIV [place] [address] Dimas Locke MD [address] [place] [id number] Magen Cardona II, MD [address] [facility] [place] [address] Norma Briones MD [address] [facility] [place] [address] Dina Pritchard DO [address] [place] [address] Internal Medicine Discharge Disposition: [facility] Facility Social History Tobacco Use Types Packs/Day [...] Sign Reading Time Taken Comments Blood Pressure 129/82 06/15/2022 12:00 PM MATERIAL ASSISTANT Pulse 111 06/15/2022 12:00 PM MATERIAL ASSISTANT Temperature 36.7 ??C (98.1 ??F) 06/15/2022 12:[address] Respiratory Rate 18 06/15/2022 4:06 AM MATERIAL ASSISTANT Oxygen Saturation 95% 06/15/2022 12:00 PM MATERIAL ASSISTANT Inhaled Oxygen Concentration - - Weight 68 kg (150 lb) 06/11/2022 8:16 PM MATERIAL ASSISTANT Height 180.3 cm (5' 11 ) 06/12/2022 6:52 PM MATERIAL ASSISTANT Body Mass Index 20.92 06/11/2022 8:16 PM MATERIAL ASSISTANT documented in this encounter Functional Status [...] 06/14/2022 documented as of this encounter Discharge Summaries * Kiko Barros, DO - 06/15/2022 10:34 AM CST [facility] DISCHARGE SUMMARY PATIENT: Mojgan Tabor 62 year old male : 1960 ADMISSION INFORMATION ADMISSION DISCHARGE Date: 06/11/2022 Date: 06/15/2022 Admitting Physician Norma Greenfield MD Discharge Physician: Dr. Pritchard Present on Admission: ??? Aspiration into lower respiratory tract, initial encounter ??? Alzheimer's disease with early onset (CMS/HCC) ??? History of CVA (cerebrovascular accident) ??? Hypertension ??? Epilepsy, unspecified, not intractable, without status epilepticus (CMS/HCC) ??? PAD (peripheral artery disease) (CMS/HCC) ??? Aspiration pneumonitis (CMS/HCC) Discharge Diagnoses: RLL Aspiration Pneumonitis Admission Condition: stable Discharged Condition: stable Consults: None, Vascular surgery HOSPITAL COURSE Hospital Course: Mr. Mojgan Tabor??is a 62 year old??male??with history epilepsy, history of stroke with L sided deficits, dementia (baseline AOx2), Zenker diverticulum, dysphagia, HTN, HLD, BPH, PAD s/p L AKA??who developed fever of 102 and possible AMS while at his SNF. CT CAP concerning for RLL infiltrates concerning for aspiration +/- pneumonia. He was evaluated by speech therapy and they recommended that he remains NPO. He was treated with vanc/zosyn for one day but this was discontinued as he was stable clinically. He had no leukocytosis, fevers or respiratory distress. He remained stable for two days after discontinuing the antibiotics. Note to PCP (e.g. vitals, labs, imaging, medication start/stop, etc. to follow): - CT showed several enhancing lesions (1.1 cm, 0.6 cm, 1.0 cm and more). These lesions are more conspicuous than on the 05/30/2022 study. These need to be followed with repeat imaging. - He needs to remain NPO with no exceptions due to significant aspiration risk. Please ensure all feeding and medications are through his PEG tube. - There was no concern for seizure but we obtained his levetiracetam, lacosamide and clobazam levels which are currently pending. They will be forwarded to his neurologist. Significant Diagnostic Studies: Labs this admission: CBC: Recent Labs Lab 06/15/2260206/14/2252306/13/22 0534 WBC 6.8 6.2 7.5 HGB 12.8 11.9* 11.7* HCT 38.1 35.2 35.8 MCV 93.4 93.9 95.2 PLTCOUNT 213 188 171 BMP: Recent Labs Lab 06/15/2260206/14/22 0506/13/22 0534 NA 143 142 143 POTASSIUM 4.0 4.0 3.9 CL 103 106 108* BUN 12 15 14 CREATININE 0.67* 0.77 0.83 CALCIUM 9.9 9.7 9.9 CMP: Recent Labs Lab 06/15/2260206/14/2252306/13/22 0534 AST 13 14 15 ALT 9 8 7 TBILI 0.2 0.2 0.3 ALKPHOS 77 71 65 ALB 2.8* 2.5* 2.4* PROT 7.1 6.6 6.3 Coagulation: No results for input(s): PT, INR, APTT in the last 168 hours. Pending labs: Anti-epileptic levels Imaging: (only include the pertinent ones) XR CHEST 1VW PORTABLE Result Date: 06/12/2022 IMPRESSION: No pulmonary consolidation. Report dictated by Carrie Ashby MD (physician vice president). ICharles, MD have personally reviewed and interpreted this examination/study. > Interpreting Provider: Charles Hare MD on 06/12/2022 12:[address] CHEST ABDOMEN PELVIS W CONT [...] right. > Dictated by Brandee Celestin MD (physician vice president). Charles Thomason MD have personally reviewed and interpreted this examination/study. > Interpreting Provider: Charles Hare MD on 06/12/2022 9:50 AM Discharge Exam: Vitals: BP 146/89 Pulse 98 Temp 98.2 ??F (36.8 ??C) (Oral) Resp 18 Ht 1.803 m (5' 11 ) Wt 68 kg (150 lb) SpO2 96% General: Alert and oriented to person, place. Not to time or situation., no acute distress Neck: No JVD or cartoid bruit. Trachea midline. Heart: RRR, Normal S1 and S2. No murmurs appreciated. Chest: Decreased breath sounds, no wheezes or rhonchi Abdomen: Soft, non-tender, non-distended, bowel sounds present. PEG tube site covered in clean, drydressing. Extremities: No lower extremity edema. Left BKA noted. 4/5 strength in left hand. 5/5 strength on right. Neuro: No focal deficits noted DISCHARGE PLANNING Disposition: [facility] facility Patient Instructions: Medication List START taking these medications divalproex sprinkle 125 MG capsule Commonly known as: Depakote Sprinkle 4 (four) capsules by Enteral Tube route Every 6 Hours (03,09,15,21) for 30 days Replaces: divalproex DR 500 MG tablet CHANGE how you take these medications acetaminophen 500 MG tablet Commonly known as: Tylenol 1 (one) tablet by Enteral Tube route every 6 hours as needed Maximum allowable Acetaminophen amount= 4 Grams (4000 mg) / 24 hours. What changed: ?? medication strength ?? how much to take ?? how to take this ?? reasons to take this ?? additional instructions aspirin 81 MG chew tablet Commonly known as: Aspirin 1 (one) tablet by Enteral Tube route once daily for 30 days What changed: how to take this polyethylene glycol 3350 17 g packet Commonly known as: Miralax 17 (seventeen) g by Enteral Tube route once daily for 30 days What changed: how to take this tamsulosin 0.4 MG capsule Commonly known as: Flomax Take 1 (one) capsule by mouth once daily At the same time every day after a meal. Please make sure it is via enteral tube. What changed: additional instructions CONTINUE taking these medications artificial tears ophthalmic solution Instill 1 (one) drop into both eyes 3 times daily as needed atorvastatin 40 MG tablet Commonly known as: Lipitor 1 (one) tablet by Enteral Tube route once daily bisacodyl 10 MG suppository Commonly known as: Dulcolax Insert 1 (one) suppository into the rectum once daily as needed for Constipation cloBAZam 20 MG tablet Commonly known as: [...] by Enteral Tube route 2 times daily thiamine 100 MG tablet Commonly known as: Vitamin B-1 1 (one) tablet by Enteral Tube route once daily STOP taking these medications divalproex DR 500 MG tablet Commonly known as: Depakote Replaced by: divalproex sprinkle 125 MG capsule Where to Get Your Medications You can get these medications from any pharmacy You don't need a prescription for these medications ?? acetaminophen 500 MG tablet Information about where to get these medications is not yet available Ask your nurse or doctor about these medications ?? aspirin 81 MG chew tablet ?? divalproex sprinkle 125 MG capsule ?? polyethylene glycol 3350 17 g packet ?? tamsulosin 0.4 MG capsule Discharge Instructions DISCHARGE INSTRUCTIONS? A MESSAGE FROM YOUR DOCTORS:?? Dear Mojgan Tabor,? You were admitted for a fever. You were treated briefly with antibiotics but these were discontinued after you did not show any signs of infections. We monitored you for two days afterwards and you remained stable. We believe that you accidentally aspirated into your lungs and that was the cause ofyour brief fever. Our speech therapist has evaluated you and recommended that you do not take in ANYTHING by mouth. This includes any drinks or foods. Sincerely, Dr. Barros 1. DISCHARGE MEDICATIONS:? Below were changes made to your home medications:? No medication changes but please ensure that all of your medicals are by enteral tube. Other than the changes stated above, continue all other home medications as prescribed.? Please discuss these changes with your Primary Care Physician (or your specialist doctor).?? If you have any questions about your medications, please ask the pharmacy when you peanut picker your prescription. You may also call your primary provider if you still have questions.? ? 2. FOLLOW-UP:? A) Below are your scheduled appointments? Future Appointments May 2:00 PM Appointment with Yana Rm at [facility] Neurology ([phone]) [address] [place] [phone] Saturday June 25, 2022 10:45 AM Appointment with Alden Hurtado at [facility] Otolaryngology ([phone]) [address] [place] [phone] Saturday June 25, 2022 11:00 AM Appointment with Marcella Thomas at [facility] Otolaryngology ([phone]) [address] [place] [phone] Thursday August 11, 2022 9:00 AM Appointment with Yana Rm at [facility] Neurology ([phone]) [address] [place] [phone] ? -If you are not going home but to Rehab or Snf, ask the providers there about going to [...] the appointment.? ? 3.? Wound Care instructions N/A ? 4. ?Lifestyle Modifications? -It is very [...] in your care!? ? Internal Medicine Team? [facility] [address] [facility]? [place] [address]? Signed: Kiko Barros DO Internal Medicine Resident [facility] 06/15/2022 10:34 AM RIAL ASSISTANT Associated attestation - Dina Pritchard DO - 06/17/2022 2:15 PM MATERIAL ASSISTANT I have seen and examined the patient with the resident and I agree with the findings and plan of care as documented by the resident. Date of Service: 06/15/2022 Dina Pritchard DO documented in this encounter Discharge Instructions * Discharge Instructions* Kiko Barros DO - 06/15/2022 10:32 AM MATERIAL ASSISTANT DISCHARGE INSTRUCTIONS? A MESSAGE FROM YOUR DOCTORS:?? Dear Mojgan Tabor,? You were admitted for a fever. You were treated briefly with antibiotics but these were discontinued after you did not show any signs of infections. We monitored you for two days afterwards and you remained stable. We believe that you accidentally aspirated into your lungs and that was the cause ofyour brief fever. Our speech therapist has evaluated you and recommended that you do not take in ANYTHING by mouth. This includes any drinks or foods. Sincerely, Dr. Barros DISCHARGE MEDICATIONS:? Below were changes made to your home medications:? No medication changes but please ensure that all of your medicals are by enteral tube. Other than the changes stated above, continue all other home medications as prescribed.? Please discuss these changes with your Primary Care Physician (or your specialist doctor).?? If you have any questions about your medications, please ask the pharmacy when you peanut picker your prescription. You may also call your primary provider if you still have questions.? ? 2. FOLLOW-UP:? A) Below are your scheduled appointments? Future Appointments May 2:00 PM Appointment with Yana Rm at [facility] Neurology ([phone]) [address] [place] [phone] Saturday June 25, 2022 10:45 AM Appointment with Alden Hurtado at [facility] Otolaryngology ([phone]) [address] [place] [phone] Saturday June 25, 2022 11:00 AM Appointment with Marcella Thomas at [facility] Otolaryngology ([phone]) [address] [place] [phone] Thursday August 11, 2022 9:00 AM Appointment with Yana Rm at [facility] ([phone]) [address] [place] [phone] ? -If you are not going home but to Rehab or Snf, ask the providers there about going to [...] the appointment.? ? 3.? Wound Care instructions N/A ? 4. ?Lifestyle Modifications? -It is very [...] in your care!? ? Internal Medicine Team? [facility] [address] [facility]? [place] [address]? RIAL ASSISTANT documented in this encounter Medications at [...] fluticasone propionate (Flonase) 50 MCG/ACT nasal spray [place] 1 (one) spray into each nostril once [...] tablet by mouth once daily 06/07/2022 09/27/2022 polyethylene glycol 3350 (Miralax) 17 g [...] as of this encounter Progress Notes * Sumi Sanchez RN - 06/15/2022 4:58 PM CST Attempted to call report twice. Unable to connect to nurse. RIAL ASSISTANT * Kiko Barros DO - 06/15/2022 10:43 AM CST Family Notification Documentation Contact made: 06/15/2022 10:43 AM Person(s) contacted: Adriane Hilliard, Method of communication: Phone Phone number: [phone] Duration of discussion: 5 minutes Summary of discussion Spoke with the patient's sister about Mr. Tabor's status and our plan for discharge today. She was told that he needs to be NPO with no exceptions at his facility. She states that she will visit him today and put up signs to ensure that no one will try to feed him accidentally. RIAL ASSISTANT * Gracia Hess - 06/15/2022 9:49 AM CST Facility Transfer Note Level of Care: Actual level of care at discharge: Snf - Skilled Facility Facility Name: (include name of person confirming admission): Actual discharge provider: [facility] Made Aware of Special Needs (if applicable): n/a RN Call Report to:[phone] Fax D/C Orders to:[phone] Transportation (company and number): [employer] [facility] [phone] Certificate of Medical Necessity rationale: CVA, impaired mobility, alzheimer's disease, fall risk,seizures Date/time of transfer:06-15-22 @ 1:30pm Accepting MD and contact #: Dalton Completed and Signed [id number] (if applicable): n/a Family/Other Notified of Transfer (name/phone): facility Authorization Skilled Care: Authorization for Transportation: Verified Qualifying Stay(Skilled Only): NOT APPLICABLE Comments: Name/Phone number: Gracia Hess [phone] RIAL ASSISTANT * Sumi Sanchez RN - 06/15/2022 8:20 AM CST Problem: Swallowing Goal: STG - Patient will tolerate therapeutic trials of recommended consistency without clincial signs and symptoms of aspiration Outcome: Progressing Problem: Swallowing Goal: STG - Patient will tolerate recommended food and liquid consistencies without clinical signs and symptoms of aspiration Outcome: Progressing Problem: Swallowing Goal: STG - Patient will follow recommended swallowing strategies Outcome: Progressing Problem: Oral Intake: Inadequate oral intake Goal: Enteral/parenteral nutrition prescription will be consistent with estimated needs Outcome: Progressing Problem: Skin Integrity Goal: [...] to engage in desired activity. Outcome: Progressing RIAL ASSISTANT * Jesse Omer RN - 06/15/2022 12:16 AM CST Problem: Swallowing Goal: STG - Patient will tolerate therapeutic trials of recommended consistency without clincial signs and symptoms of aspiration Outcome: Progressing Goal: STG - Patient will tolerate recommended food and liquid consistencies without clinical signs and symptoms of aspiration Outcome: Progressing Goal: STG - Patient will follow recommended swallowing strategies Outcome: Progressing Problem: Oral Intake: Inadequate oral intake Goal: Enteral/parenteral nutrition prescription will be consistent with estimated needs Outcome: Progressing Problem: Skin Integrity Goal: Skin integrity is maintained or improved Outcome: Progressing Problem: Fall Risk Goal: Fall risk and fall related injury risk are minimized (interventions related to the fall risk can be found in the flowsheet documentation) Outcome: Progressing RIAL ASSISTANT * Kiko Barros DO - 06/14/2022 2:35 PM CST [facility] PROGRESS NOTE Patient: Mojgan Tabor Sex: male Age: [age] year old Date of : 1960 Date of Admission: 06/11/2022 Date: 06/14/2022 LOS: 1 SUBJECTIVE Interval History: Mr. Tabor is doing well today. He denies any cough, SOB, n/v, dizziness, fever or chills. He continues to remain afebrile and is stable on room air. Hospital Course: Mr. Mojgan Tabor is a 62 year old male with history epilepsy, history of stroke with L sided deficits, dementia (baseline aox2), Zenker diverticulum, dysphagia, HTN, HLD, BPH, PAD s/p L AKA who developed fever of 102 and AMS while at his SNF. CT CAP concerning for RLL infiltrates concerning for aspiration +/- pneumonia. He was treated with vanc/zosyn for one day but this was discontinued as he was stable clinically OBJECTIVE Vital Signs: Vitals: 06/14/22 0336 06/14/22 0342 06/14/22 0809 06/14/22 1158 BP: 126/88 119/75 134/80 123/81 Pulse: 91 92 91 96 Resp: 19 18 18 Temp: 98.7 ??F (37.1 ??C) 98.5 ??F (36.9 ??C) 98 ??F (36.7 ??C) 97.6 ??F (36.4 ??C) SpO2: 95% 95% 93% 92% Weight: Height: Temp Min: 97.2 ??F (36.2 ??C) Max: 98.7 ??F (37.1 ??C), Pulse Min: 73 Max: 107, Resp Min: 16 Max: 23, BP Min: 101/85 Max: 150/87 Intake & Output: In: 480 Out: 1400 [Urine:1400] Physical Exam: General: Alert and oriented to person, place. Not to time or situation., no acute distress Neck: No JVD or cartoid bruit. Trachea midline. Heart: RRR, Normal S1 and S2. No murmurs appreciated. Chest: Decreased breath sounds, no wheezes or rhonchi Abdomen: Soft, non-tender, non-distended, bowel sounds present. PEG tube site covered in clean, drydressing. Extremities: No lower extremity edema. Left BKA noted. 4/5 strength in left hand. 5/5 strength on right. Neuro: No focal deficits noted Intake/Output Summary (Last 24 hours) at 06/14/2022 1435 Last data filed at 06/14/2022 1235 Gross per 24 hour Intake 1541 ml Output 500 ml Net 1041 ml Current Medications: Scheduled: ??? 0.9% NaCl 3 mL Intracatheter q8h ??? aspirin 81 mg Enteral Tube QDAY ??? atorvastatin 40 mg Enteral Tube QDAY ??? cloBAZam 20 mg Enteral Tube BID ??? divalproex sprinkle 500 mg Enteral Tube Every 6 Hours (03,09,15,21) ??? enoxaparin 40 mg Subcutaneous QDAY ??? folic acid 1 mg Enteral Tube QDAY ??? lacosamide 200 mg Enteral Tube BID ??? levETIRAcetam 2,000 mg Enteral Tube BID ??? polyethylene glycol 3350 17 g Enteral Tube QDAY ??? sodium - potassium phosphates 2 tablet Enteral Tube BID ??? tamsulosin 0.4 mg Oral QDAY ??? thiamine 100 mg Enteral Tube QDAY Continuous: PRN: ??? SALINE LOCK, INSERT AND MAINTAIN AND 0.9% NaCl AND 0.9% NaCl ??? acetaminophen ??? artificial tears ??? bisacodyl Significant Lab Results: No leukocytosis noted Microbiology: Sputum culture growing heavy normal oropharyngeal heidi Imaging & Studies: None ASSESSMENT & PLAN #RLL Aspiration Pneumonitis #Zenker Diverticulum #Dysphia with PEG tube - Discontinued antibiotics 06/13 as patient is afebrile, no leukocytosis, no respiratory distress/hypoxia since admission - On pureed diet at facility although he was supposed to be NPO - Speech therapy recommended NPO status - Nutrition consulted Plan: - NPO with continuous tube feeds - Obtain BCx and restart ABX if he spikes fevers or decompensates Chronic: #History of CVA #HLD - Residual left sided defects Plan: - Continue ASA 81mg, Atorvastatin 40 mg #HTN - No home meds #BPH - Continue tamsulosin #Epilepsy - Continue home clobazam 20 mg, divalproex 100 mg bid, lacosamide 200 mg bid, keppra 2000 mg bid - Seizure med levels obtained and pending Code: Full Diet: Tube feeds Electrolytes: Replete PRN PPx: Lovenox Access: PIV Dispo: Considering discharge back to SNF on 06/15 if he remains stable The above assessment and plan will be discussed with the attending. This note is not final until attested by attending physician. Kiko Barros, Internal Medicine Resident [facility] 06/14/2022 2:35 PM RIAL ASSISTANT Associated attestation - Magen Cardona II, MD - 06/14/2022 4:13 PM MATERIAL ASSISTANT I have seen and examined the patient with the resident and I agree with the findings and plan of care as documented by the resident. In addition: Mr. Tabor has been on room air, afebrile, and without leukocytosis this hospitalization. His CT findings suggest aspiration pneumonitis. At his previous hospitalization, the recommendation was for NPO but patient was still receiving intake by mouth at his facility. This hospitalization speech therapy revaluated and recommend NPO. Anti-epileptic medications level to ensure that patient is not having supra- therapuetic levels contributing to his increased somnolence. On my evaluation today, patient was oriented to person and situation and was able to answer simple yes and no questions which seems to be at the patient's baseline. Patient likely would be ready for discharge on 06/15/2022. Active Problem List Epilepsy, unspecified, not intractable, without status epilepticus (CMS/HCC) POA: Yes Alzheimer's disease with early onset (CMS/HCC) POA: Yes History of CVA (cerebrovascular accident) POA: Yes Hypertension POA: Yes PAD (peripheral artery disease) (CMS/HCC) POA: Yes Aspiration into lower respiratory tract, initial encounter POA: Yes Aspiration pneumonitis (CMS/HCC) POA: Yes Date of Service: 06/14/2022 Magen Cardona II, MD * Marcella Calderon, JOSIAS - 06/14/2022 1:07 PM CST [facility] Department of Physical Medicine & Rehabilitation Progress Note Patient: Mojgan Tabor [facility] Record Number: [id number] Date of : 1960 Age: [age] year old PARADICHLOROBENZENE TENDER spoke with Pt's medical team regarding whether or not ongoing PARADICHLOROBENZENE TENDER services were appropriate at this time given Pt's latest MBS during previous admission revealed severe oropharyngeal and esophageal dysphagia. Per discussion with MD, will d/c order at this time given Pt's elevated aspiration risk and new diagnosis of suspected aspiration pneumonia. Marcella Scherer M.S., [facility]-PARADICHLOROBENZENE TENDER Speech Language Pathologist [phone] RIAL ASSISTANT * Svetlana Charles - 06/14/2022 10:38 AM CST Problem: Skin Integrity Goal: Skin integrity is maintained or improved Outcome: Progressing Problem: Fall Risk Goal: Fall risk and fall related injury risk are minimized (interventions related to the fall risk can be found in the flowsheet documentation) Outcome: Progressing RIAL ASSISTANT * John Aguero RN - 06/14/2022 10:29 AM CST Case Management Initial Assessment Case Management screen completed Anticipated Discharge Date: 06/15/22 Transportation at Discharge: Ambulance Anticipated level of care at discharge: Snf - Skilled Facility Anticipated level of care provider: None Prior to admission level of care: Snf - Skilled Facility Prior to admit provider: None Discharge Goals and Plans: Plans: Discharge needs identified. See progress notes for details. Case Management to follow for discharge planning. Upon discharge or transfer to a post acute facility should rehospitalization, home health, rehabilitation, or any other follow up care be required, patient's preference is to stay within the [facility] and its affiliates.: Unsure Comments: CM talked to patient's sister Adriane Hilliard who told CM that the patient has been living at SNF, Sister plans to come and visit patient today and talk to social science manager. CM placed consult for social science manager. Lives with: Other (Comment) (Per sister he lives at SNF) Physical Limitations: NWB LLE Requires Assistance With: ADL's Insurance: Payer/Plan Subscriber Name Rel Member # Group # [facility] * MOJGAN TABOR [id number] [address] Readmission: Yes Readmission Risk: READMISSION RISK SCORE is 21 at 10:29 AM 06/14/2022. Met with:patient's sister Adriane Hilliard Family Support (name and phone): Extended Emergency Contact Information Primary Emergency Contact: Adrinae Hilliard Mobile Relation: Sister [employer]inct Police Lieutenant needed? No Secondary Emergency Contact: Amarjit Tabor [facility] Relation: Brother Patient or retail service representative requests care coordination reach out to family or caregiver listed above regarding discharge planning and at time of discharge? Yes Patient/Family provided with list of resources? No Preferred Provider / High Quality Network List given?: No Reason for provider choice: Unknown Motion Picture Projectionist Referral: Yes Will continue to follow. For any questions or needs please contact: Gas Meter Installer Name/Phone number: John Aguero RN BSN [phone] RIAL ASSISTANT * Jesse Omer RN - 06/13/2022 9:39 PM CST Problem: Swallowing Goal: STG - Patient will tolerate therapeutic trials of recommended consistency without clincial signs and symptoms of aspiration Outcome: Progressing Goal: STG - Patient will tolerate recommended food and liquid consistencies without clinical signs and symptoms of aspiration Outcome: Progressing Goal: STG - Patient will follow recommended swallowing strategies Outcome: Progressing Problem: Oral Intake: Inadequate oral intake Goal: Enteral/parenteral nutrition prescription will be consistent with estimated needs Outcome: Progressing Problem: Skin Integrity Goal: Skin integrity is maintained or improved Outcome: Progressing Problem: Fall Risk Goal: Fall risk and fall related injury risk are minimized (interventions related to the fall risk can be found in the flowsheet documentation) Outcome: Progressing RIAL ASSISTANT * Mahogany Santa RN - 06/13/2022 1:58 PM CST Problem: Skin Integrity Goal: Skin integrity is maintained or improved Outcome: Progressing RIAL ASSISTANT * Kiko Barros DO - 06/13/2022 11:36 AM CST [facility] INTERNAL MEDICINE PROGRESS NOTE Patient: Mojgan Tabor Sex: male Age: [age] year old Date of : 1960 Date of Admission: 06/11/2022 Date: 06/13/2022 LOS: 0 SUBJECTIVE Interval History: Mr. Tabor is doing well. Denies any SOB, cough, fever or chills. He was a lot more awake during ourinteraction this morning. He denied any other complaints at this time. I spoke with his brother, Mr. Amarjit Tabor outside of the patient's room and updated him about our plan. Hospital Course: Mr. Mojgan Tabor is a 62 year old male with history epilepsy, history of stroke with L sided deficits, dementia (baseline aox2), Zenker diverticulum, dysphagia, HTN, HLD, BPH, PAD s/p L AKA who developed fever of 102 and AMS while at his SNF. CT CAP concerning for RLL infiltrates concerning for aspiration +/- pneumonia. He was treated with vanc/zosyn for one day but this was discontinued as he was stable clinically OBJECTIVE Vital Signs: Vitals: 06/12/22 2049 06/13/22 0002 06/13/22 0420 06/13/22 1124 BP: 131/73 150/87 134/80 125/77 Pulse: 79 75 86 85 Resp: 20 20 20 18 Temp: 97.7 ??F (36.5 ??C) 98 ??F (36.7 ??C) 98.4 ??F (36.9 ??C) 98.3 ??F (36.8 ??C) SpO2: 96% 96% 95% 96% Weight: Height: Temp Min: 97.2 ??F (36.2 ??C) Max: 98.4 ??F (36.9 ??C), Pulse Min: 75 Max: 107, Resp Min: 17 Max: 23, BP Min: 108/70 Max: 150/87 Intake & Output: In: - Out: 750 [Urine:750] Physical Exam: General: Alert and oriented to person, place. Not to time or situation., no acute distress Neck: No JVD or cartoid bruit. Trachea midline. Heart: RRR, Normal S1 and S2. No murmurs appreciated. Chest: Decreased breath sounds, no wheezes or rhonchi Abdomen: Soft, non-tender, non-distended, bowel sounds present. PEG tube site covered in clean, drydressing. Extremities: No lower extremity edema. Left BKA noted. 4/5 strength in left hand. 5/5 strength on right. Neuro: No focal deficits noted Intake/Output Summary (Last 24 hours) at 06/13/2022 1136 Last data filed at 06/13/2022 0010 Gross per 24 hour Intake -- Output 750 ml Net -750 ml Current Medications: Scheduled: ??? 0.9% NaCl 3 mL Intracatheter q8h ??? aspirin 81 mg Enteral Tube QDAY ??? atorvastatin 40 mg Enteral Tube QDAY ??? cloBAZam 20 mg Enteral Tube BID ??? divalproex sprinkle 500 mg Enteral Tube Every 6 Hours (03,09,15,21) ??? enoxaparin 40 mg Subcutaneous QDAY ??? folic acid 1 mg Enteral Tube QDAY ??? iopamidol Intravenous Contrast - Once ??? lacosamide 200 mg Enteral Tube BID ??? levETIRAcetam 2,000 mg Enteral Tube BID ??? polyethylene glycol 3350 17 g Enteral Tube QDAY ??? tamsulosin 0.4 mg Oral QDAY ??? thiamine 100 mg Enteral Tube QDAY Continuous: PRN: ??? SALINE LOCK, INSERT AND MAINTAIN AND 0.9% NaCl AND 0.9% NaCl ??? acetaminophen ??? artificial tears ??? bisacodyl Significant Lab Results: No leukocytosis noted Microbiology: Sputum culture growing heavy normal oropharyngeal heidi Imaging & Studies: None ASSESSMENT & PLAN #RLL Aspiration Pneumonitis #Zenker Diverticulum #Dysphia with PEG tube - Discontinued antibiotics 06/13 as patient is afebrile, no leukocytosis, no respiratory distress/hypoxia since admission - On pureed diet at facility although he was supposed to be NPO - Speech therapy recommended NPO status - Nutrition consulted Plan: - NPO with continuous tube feeds - Obtain BCx and restart ABX if he spikes fevers or decompensates Chronic: #History of CVA #HLD - Residual left sided defects Plan: - Continue ASA 81mg, Atorvastatin 40 mg #HTN - No home meds #BPH - Continue tamsulosin #Epilepsy - Continue home clobazam 20 mg, divalproex 100 mg bid, lacosamide 200 mg bid, keppra 2000 mg bid - Seizure med levels obtained and pending Code: Full Diet: Tube feeds Electrolytes: Replete PRN PPx: Lovenox Access: PIV Dispo: Likely back to SNF at discharge The above assessment and plan will be discussed with the attending. This note is not final until attested by attending physician. Kiko Barros DO Internal Medicine Resident [facility] 06/13/2022 11:36 AM RIAL ASSISTANT Associated attestation - Magen Cardona II, MD - 06/13/2022 1:35 PM MATERIAL ASSISTANT I have seen and examined the patient with the resident and I agree with the findings and plan of care as documented by the resident. In addition: Mr. Tabor has remained afebrile, without leukocytosis, and ORA at this time low suspicion for aspiration pneumonia. Will trial off antibiotics. Active Problem List Epilepsy, unspecified, not intractable, without status epilepticus (CMS/HCC) POA: Yes Alzheimer's disease with early onset (CMS/HCC) POA: Yes History of CVA (cerebrovascular accident) POA: Yes Hypertension POA: Yes PAD (peripheral artery disease) (CMS/HCC) POA: Yes Aspiration into lower respiratory tract, initial encounter POA: Yes Date of Service: 06/13/2022 Magen Cardona II, MD * CandiceMalia, OT - 06/13/2022 10:20 AM CST [facility] Physical Medicine and Rehabilitation Occupational Therapy Initial Evaluation Note/Discharge Note Patient: Mojgan Tabor [facility] Record Number: [id number] Date of : 1960 Age: [age] year old PPE worn by staff: gloves;mask - procedural PPE worn by patient: gown - patient, clean;socks - clean Tech: none Co-evaluated w/ PT Discharge Recommendation: pt is baseline dependent at SNF In addition to the 1:1 evaluation of [...] Evaluation and Treat Activity Level: up ad daniela PRECAUTIONS: DIAGNOSIS: Patient Active Problem List: Seizure [...] respiratory tract, initial encounter Aspiration pneumonitis (CMS/HCC) Past Medical History: Diagnosis Date ??? CVA (cerebral vascular accident) (CMS/HCC) ??? HTN (hypertension) ??? Seizure (CMS/HCC) SUBJECTIVE: Subjective: Pt with limited verbalization, information obtained fro brother PATIENT GOALS: Home Situation: Type of Residence: Snf Lives with:: Other (Comment) (SNF) Prior Level of Functioning: Mobility: Wheelchair Bound (or up to recliner: staff at SNF transfer pt w/ mechanical/Ana lift) Have Help at Home?: Yes, there is help at home now Who assists you at home?: Staff How often is assistance provided?: daily Level of Help Sufficient?: Yes Activity at Home: Sedentary;W/C Bound Vision: Other (Comment) (uncertain) Hearing Exceptions: No impairment Who manages medications?: facility Pain Assessment: Pain Rating Score #: (reports h/o back pain but did not rate) Follow-up for pain: No follow-up for pain indicated and patient agreed to proceed with treatment OBJECTIVE: At start of therapy session, patient found in bed General Appearance: elderly appearing male pt supine in bed with hob part elevated, nad LDA: IV's: Peripheral line, Catheter and external catheter Edema: No edema noted Vitals: (*Assess the 3 levels of oxygen saturations both for room air and 02 unless rest on room air is 88% or less). Rest BP: 115/78 HR: 95 Sp02 Sp02 93 Room Air L O2 Ex/Gait/Activity Without 02 BP: HR: Sp02 Room Air Ex/Gait/Activity With 02 BP: HR: Sp02 L O2 Post Activity BP: HR: Sp02 Sp02 L O2 Room Air Mental Status/Cognition: Level of Consciousness-Adult: Drowsy Orientation Level: Oriented to Person Cognition: Follows Commands-inconsistent;Processing-delayed;Judgement-decreased Attention Span: Difficulty attending to directions Following Commands: Other (Comment) (1 step inconsistently < 50%, pt also has trouble initiatingmovement) Problem Solving: Assistance required to identify errors made;Assistance required to implement solutions UE ROM: RUE: Deficits noted lifts shoulder into forward flexion ~ 3/4 range, PROM grossly wfl LUE: Deficits noted lifts shoulder into forward flexion < 1/2 range, PROM grossly wfl Strength: RUE: deficits noted LUE: deficits noted UE Tone RUE: flexor tone LUE: flexor tone Coordination: significant impairments of bilateral hand function for [facility] UE Proprioception RUE: not tested LUE: not tested UE Sensation RUE: not tested LUE: not tested Unable to ascertain Perception: Inattention/Neglect: Cues to attend left visual field Initiation: Hand over hand to initiate tasks Motor Planning: Other (Comment) (pt had difficulty moving and using limbs) Visual/Motor Tracking: Unable to test secondary due to decreased visual attention Mobility: A gait belt and non-slip socks were used for all out of bed activity this date. Bed Mobility: with HOB in semi-fowlers position Transfers: Activity did not occur. Pt dependent Functional Ambulation: Functional mobility of ambulation to sink/bathroom with n/a assist using n/a. Balance: Balance Scales/Tests Used: Sitting: Static/Dynamic Sitting - Static: Poor (unable to maintain with LOB to sides and posteriorly) Activities of Daily Living Feeding: Activity Does Not Occur (pt is longtime NPO) Oral Facial Hygiene: Total Assistance Bathing: Activity Does Not Occur Upper Body Dressing: Activity Does Not Occur Lower Body Dressing: Total Assistance Toileting: Activity Does Not Occur Splint Issued/Checked: none ACTIVITY TOLERANCE: Patient's activity tolerance: poor plus Tolerated activity at eob with fatigue Modified Lakeshore: Current Modified Lakeshore Score: 5 TREATMENT / EDUCATION / INTERVENTIONS: While performing OT, Patient and brother was instructed in:functional mobility training, self-care training, safety awareness/fall precautions , discharge planning Presented to patient who demonstrates Questionable understanding of instructions given. Brother expresses understanding. INFORMED CONSENT TO TREATMENT: Plan of care including recommended therapy, goals and frequency, discussed with patient who understands and agrees to proceed. ASSESSMENT: Functional performance limited due to: limited activities of daily living, decreased functional mobility, decreased functional balance, decreased cognition , decreased safety awareness, upper extremity functional impairments, decreased endurance and activity tolerance, decreased coordination and ptappears to be at functional baseline in these areas.. Short Term Goals: Goal Formation : n/a Intermediate Goal(s): Patient to discharge to appropriate next level of inpatient care. Pt to rettuen to NH/SNF when cleared by medical team Plan: Plan: Discontinue IP OT If patient is discharged from the facility, this note serves as a discharge summary if further occupational therapy visits did not occur. Refer to filed flowsheet for further details. Following therapy session, patient left in bed, with bed alarm on , with call light within reach, with family in room, with RN, made aware. RIAL ASSISTANT * Elizabeth Vargas, PT - 06/13/2022 9:55 AM CST [facility] Physical Medicine and Rehabilitation Physical Therapy Initial Evaluation/DISCHARGE Note Patient: Mojgan Tabor Med Record Number: [id number] Date of : 1960 Age: [age] year old PPE worn by staff: gloves;gown - disposable;mask - procedural Tech: NO Discharge Recommendation: RETURN TO PREVIOUS FACILITY In addition to the 1:1 evaluation of the patient, additional eval time was spent completing the chart review prior to the assessment, completing the multidisciplinary plan of care and education plan post evaluation and communicating results of the eval to other treatment team members. Occupational Therapy contacted regarding patient status and/or discharge plan. Physician Orders: Evaluation and Treat PRECAUTIONS: Weight Bearing Status: (NWB L LE) Activity Level: Activity as Tolerated DIAGNOSIS: Patient Active Problem List: Seizure (CMS/HCC) [...] respiratory tract, initial encounter Aspiration pneumonitis (CMS/HCC) Past Medical History: Diagnosis Date ??? CVA (cerebral vascular accident) (CMS/HCC) ??? HTN (hypertension) ??? Seizure (CMS/HCC) SUBJECTIVE: Subjective: PER BROTHER, PT HAS BEEN GETTING UP TO A CHAIR BUT WITH A LIFT PATIENT GOALS: Home Situation: Type of Residence: Snf Prior Level of Functioning: Mobility: Wheelchair Bound Pain Assessment: Pain Rating Score #: (WINCED AT TIMES IF IN PAIN BUT WOULD NOT STATE WHERE) Follow-up for pain: No follow-up for pain indicated and patient agreed to proceed with treatment OBJECTIVE: At start of therapy session, patient found in bed and with bed alarm on. General Appearance: LYING IN BED. L AKA LDAs: IV's: Peripheral line, Catheter and PEG Tube Edema: no edema noted in bilateral lower extremities Vitals: (*Assess the 3 levels of oxygen saturations both for room air and 02 unless rest on room air is 88% or less). Rest BP: HR: Sp02 Sp02 Room Air L O2 Ex/Gait/Activity Without 02 BP: HR: Sp02 Room Air Ex/Gait/Activity With 02 BP: HR: Sp02 L O2 Post Activity BP: HR: Sp02 Sp02 L O2 Room Air Observations: NO C/O SOB OR DIZZINESS Mental Status/Cognition: Level of Consciousness-Adult: Drowsy Orientation Level: Oriented to Person Cognition: Follows Commands-inconsistent Attention Span: Difficulty attending to directions Following Commands: (MINIMAL COMMAND FOLLOWING THIS DATE) ROM: RLE: Deficits noted GENERALIZED STIFFNESS NOTED LLE: NOT TESTED, L AKA Strength RLE:deficits noted LLE: not tested Tone: RLE: MIN-MOD INCREASED TONE LLE: NOT TESTED Coordination: RLE: not tested LLE: not tested Sensation: RLE: APPEARS INTACT LLE: APPEARS INTACT Mobility: A gait belt and non-slip socks were used for all out of bed activity this date. Bed Mobility: Rolling: Total Assistance (OF 2) Supine to Sit: Total Assistance;X 2 with HOB in semi-fowlers position Sit to Supine: Total Assistance;X 2 Balance: Balance Scales/Tests Used: Sitting: Static/Dynamic Sitting - Static: Poor Sitting - Dynamic: Not tested ACTIVITY TOLERANCE: Patient's activity tolerance: fair minus TREATMENT/INTERVENTIONS: evaluation Modified [place]: EDUCATION: While performing PT, Patient was instructed in:functional mobility training Patient not appropriate for education at this time secondary to mental status. INFORMED CONSENT TO TREATMENT: Plan of care not given secondary toPT AT BASELINE STATUS FOR MOBILITY. NO FURTHER SKILLED THERAPY ASSESSMENT: Patient demonstrates baseline functioning with mobility. No continued Physical Therapy indicated atthis time Intermediate Goal(s): Patient to discharge to appropriate next level of inpatient care. Equipment Issued: none Plan: Plan: Discontinue IP PT If patient is discharged from the facility, this note serves as a discharge summary if further physical therapy visits did not occur. Refer to filed flowsheet for further details. Following therapy session, patient left in bed, with bed alarm on , with call light within reach, with family in room. RIAL ASSISTANT * Malia Harvey, OT - 06/13/2022 8:27 AM CST 06/13/22 0827 Missed Visit Missed Visit No Activity Order Please provide activity level order, ie: up as tolerated, up w/ assist etc... for pt to proceed with OT and PT. Thank you RIAL ASSISTANT * Kiko Barros DO - 06/13/2022 6:38 AM CST Family Notification Documentation Contact made: 06/12/2022 11:30 AM Person(s) contacted: sister Kearns Method of communication: Phone Phone number: [phone] Duration of discussion: 10 minutes Summary of discussion I called the patient's sister and updated her about Mr. Tabor's reason for admission and current plan. She informed me that the patient has been living at a SNF after getting his foot amputated recently. At baseline, he is A&Ox4, responds to all questions and interacts appropriately albeit slowly. He does not have any significant deficits of his extremities or any facial assymetry. However, he gets very sleepy when he takes his anti-seizure medications but this only lasts for 1-2 hours. RIAL ASSISTANT * Mara Lloyd RN - 06/12/2022 11:49 PM CST Problem: Swallowing Goal: STG - Patient will tolerate therapeutic trials of recommended consistency without clincial signs and symptoms of aspiration Outcome: Progressing Goal: STG - Patient will tolerate recommended food and liquid consistencies without clinical signs and symptoms of aspiration Outcome: Progressing Goal: STG - Patient will follow recommended swallowing strategies Outcome: Progressing Problem: Oral Intake: Inadequate oral intake Goal: Enteral/parenteral nutrition prescription will be consistent with estimated needs Outcome: Progressing Problem: Skin Integrity Goal: Skin integrity is maintained or improved Outcome: Progressing RIAL ASSISTANT * Svetlana Charles - 06/12/2022 6:19 PM CST Problem: Skin Integrity Goal: Skin integrity is maintained or improved Outcome: Progressing RIAL ASSISTANT * Glo Clarke SLP - 06/12/2022 9:10 AM CST [facility] Physical Medicine and Rehabilitation Bedside Swallow Assessment Patient: Mojgan Tabor [facility] Record Number: [id number] Date of : 1960 Age: [age] year [...] hypoxia (CMS/HCC) Protein-calorie malnutrition, unspecified severity (CMS/HCC) Hypoxia Aspiration into lower respiratory tract, initial encounter Past Medical History: Diagnosis Date ??? CVA (cerebral vascular accident) (CMS/HCC) ??? HTN (hypertension) ??? Seizure ([facility]/HCC) In addition to the 1:1 evaluation of the patient, additional eval time was spent completing the chart review prior to the assessment, completing the multidisciplinary plan of care and education plan post evaluation and communicating results of the eval to other treatment team members. PPE: PPE worn by staff: mask - procedural;gloves PPE worn by patient: gown - patient, clean Impressions: Pt's swallow function evaluated at bedside. Pt presents with moderate to severe oropharyngeal swallow. Administered trials of ice chips and thin liquids. Pt demonstrated consistent wet coughing with all PO trials with concern for aspiration. Pt was seen here recently and found to have Zenker's diverticulum. Given hx and presentation, recommend patient remain NPO. ST will continue to follow. Recommendations: Diet Liquids Recommendation: NPO Diet Solids Recommendation: NPO Recommended Form of Meds: Feeding Tube Recommended Tests/Consults: Recommendations: NPO;Dysphagia Treatment Discharge Recommendations: Speech therapy is recommended to improve swallow function. Pain Assessment: 0/10 Follow-up for pain: No follow-up for pain indicated and patient agreed to proceed with treatment OBJECTIVE: Level of Consciousness: alert Orientation Level: oriented to person, oriented to place Positioning: Upright in bed Respiratory Status: room air Swallow Trials: Ice chips: Presentation: Spoon-Assisted Oral: Increased Anterior to Posterior Transit;Delayed Initiation Pharyngeal: Wet Vocal Quality Thin Liquid: Presentation: Spoon-Assisted Oral: Increased Anterior to Posterior Transit Pharyngeal: Wet Vocal Quality;Cough - Immediate Assessment: Risk For Aspiration: Severe Primary Diagnostic Impression - Oral: Mild;Dysphagia Primary Diagnostic Impression - Pharyngeal: Moderate;Dysphagia Education/Interventions: While performing PARADICHLOROBENZENE TENDER, Patient was instructed in: recommendations for NPO status given patient's elevated aspiration risk. Patient demonstrated Fair understanding of instructions given. Physician contacted regarding results of swallow evaluation and recommendations. INFORMED CONSENT TO TREATMENT: Plan of care including recommended therapy, goals and frequency, discussed with patient who understands and agrees to proceed. Short Term Goals Patient will follow recommended swallowing strategies. Intermediate Goal (s): Patient to be independent/baseline with functional mobility and self care and be able to safely discharge to prior level of care. Plan: ST will continue to follow RIAL ASSISTANT * Shakila Medina, KENNEDY - 06/12/2022 8:10 AM CST [facility] Department of Physical Medicine & Rehabilitation Progress Note Patient: Mojgan Tabor [facility] Record Number: [id number] Date of : 1960 Age: [age] year old 06/12/22 0810 Missed Visit Missed Visit No Activity Order Patient currently with no activity orders. Patient will require updated activity orders in order toparticipate in occupational therapy evaluation. RIAL ASSISTANT * Leonardo Kenny II, PT - 06/12/2022 8:07 AM CST [facility] Department of Physical Medicine & Rehabilitation Progress Note Patient: Mojgan Tabor Med Record Number: [id number] Date of : 1960 Age: [age] year old 06/12/22 0807 Missed Visit Missed Visit No Activity Order Patient currently with no activity orders. Patient will require updated activity orders (e.g. activity as tolerated, up ad daniela, etc.) in order to participate in physical therapy evaluation. RIAL ASSISTANT * Carmine Marte PharmD - 06/12/2022 6:30 AM CST Vancomycin Per Pharmacy - Initial Note Subjective Mojgan Tabor is a 62 year old male being initiated on vancomycin. Indication for anti-infective therapy: suspected infection Site of anti-infective therapy: Poss. asp PNA/septic concern. 15-20 mcg/mL Objective Day of treatment: 1 Weight: 68 kg (150 lb) Estimated Creatinine Clearance: 91 mL/min (based on SCr of 0.82) Ht Readings from Last 1 Encounters: 06/01/22 5' 8 (1.727 m) Recent Labs Component Name 06/12/22 0337 06/11/22 2122 06/03/22 0440 06/03/22 0439 06/02/22 0453 06/01/22 0538 03/19/22 0203 03/18/22 0606 03/16/22 0619 03/15/22 0638 CREATININE 0.82 0.92 0.81 - - 0.68* - 0.56* - - WBC 11.4* 13.2* - 6.2 - 7.0 - - - - VANCTROUGH - - - - - 35.3* - <2.5* - 15.1 - = values in this interval not displayed. Radiocontrast within 72 hours The 3 most recent administrations since 06/09/2022 are shown below each listed medication. Other Order Route Dose Action Date iopamidol (Isovue 370) 76 % contrast Intravenous 100 mL $ Given - Contrast 06/12/2022 Vancomycin Administrations from JUL (last 72 hours) None Assessment Target trough: 15-20 mcg/mL A dosing regimen of 1250 mg q 8 hours was sufficient to achieve therapeutic kinetics based on chartreview from prior admission in February. On more recent admission, trough of 35.3 is noted, however, this appears to be erroneous value (drawn only 3 hours after dose given). Renal function based on S Cr is stable at this time. Plan Dosing: Loading Dose: 1500 mg Maintenance Dose: 1250 mg, Dosing Interval: q 8 hr. Monitoring Plan: Will obtain a vancomycin trough level prior to the 5th dose on 06/13 at 1500 and adjust regimen if appropriate. Will continue to monitor patient's renal function. Please contact the [facility] pharmacy department ([phone]) with any questions. Carmine Marte PharmD 06/12/2022 6:26 AM Resources: Vancomycin Protocol RIAL ASSISTANT * Luis Antonio Guan MD - 06/11/2022 11:06 PM CST 62yo recently discharged admitted due to fever 102.5 at facility, directed by facility MD to present to ED Prior dc summary reviewed Pt at baseline mental status per facility RN at [facility] Alert, Interactive, Conversational, Following commands Oriented to name, place (not year or situation ) Did note prior decreased alertness per RN at facility No seizure concern per facility Pt stating he has seizure today and if in pain anywhere says his stomach hurts VS reviewed Nontoxic appearing, NC AT, dry mucosa AOx2 (person place - not year and not situation) RRR Lungs clear PEG tube in place, site viewed without purulence no rebound tenderness, minimal diffuse abdominal tenderness No LE edema Plan: Possible admit to medicine for sepsis evaluation (fever tachycardia leukocytosis), HDS UA reflex cx pending - possible source, prior micro reviewed CXR neg procal neg [facility] records in chart Roge OLSEN RIAL ASSISTANT documented in this encounter H&P Notes * Bhavesh Timmons DO - 06/12/2022 4:54 AM CST [facility] INTERNAL MEDICINE HISTORY & PHYSICAL NOTE Date of Admission: 06/11/2022 Patient: Mojgan Tabor Sex: male Age: [age] year old Date of : 1960 Code Status: Full Code SUBJECTIVE Chief Complaint: Chief Complaint Patient presents with ??? Weakness Pt BIBEMS from Snf with a C/O fever, weakness and Lethargica. AO*2 ( baseline as Per EMS),J tube in placed. History of Present Illness: Mojgan Tabor is a 62 year old male w/ PMHx epilepsy, history of stroke with L sided deficits, dementia (baseline aox2), Zenker diverticulum, dysphagia, HTN, HLD, BPH, PAD s/p L AKA who developed fever and transient alteration of awareness while at his SNF. History limited due to baseline dementia; baseline aox2 (self, location) and currently at baseline. Per the nursing facility, he had a fever measured at 102 at about 6:45 PM 06/11 and was also thought to be generally weak, lethargic, and having increased secretions. There was no witnessed seizure activity or aspiration event. When speaking with patient he believes he had a seizure though it is unclear to what extent he is a reliable historian and the facility notes that he is often confused. He does endorse a productive cough and generalized abdominal pain. He denies any shortness of breath, hemoptysis, chest pain, n/v, urinary symptoms. He was recently admitted (05/30/22) for a similar presentation (lethargy, new O2 requirement at that time which is not currently present) and was treated for aspiration pneumonia with vancomycin and Zosyn, later vancomycin and ceftriaxone. Completed 5d of abx. Prior to this (05/11/22) he had an admission for multiple seizures at this facility. EEG showed multiple epileptiform discharges and generalized slowing. AED's were adjusted. No documented seizures reported since. In the ED, vitals showed temp 97.9 HR 98-103 O2 98% on RA, no tachypnea and normotensive. Labs showed leukocytosis at 13.2, otherwise largely unremarkable including negative procal and no COVID/flu/RSV detected. CXR without acute pulmonary process, however CT CAP showed RLL infiltrates c/w aspiration pneumonia. Started on ceftriaxone, azithromycin and vancomycin on 06/12. Past Medical History: Past Medical History: Diagnosis [...] on file Housing Stability: Not on file Social history reviewed: EtOH: previous history of heavy alcohol use, none recently Living situation: [facility] Baseline/ADL's: L sided deficits. Reliant on others for care. PEG tube in place due to dysphagia Allergies: Allergies Allergen Reactions ??? Clonazepam Psychiatric [...] 0.9% NaCl 3 mL Intracatheter q8h ??? aspirin 81 mg Enteral Tube QDAY ??? atorvastatin 40 mg Enteral Tube QDAY ??? azithromycin (Zithromax) IV 500 mg Intravenous q24h ??? cefTRIAXone 2 g Intravenous q24h ??? cloBAZam 20 mg Enteral Tube BID ??? divalproex DR 1,000 mg Oral BID ??? folic acid 1 mg Enteral Tube QDAY ??? iopamidol Intravenous Contrast - Once ??? lacosamide 200 mg Enteral Tube BID ??? levETIRAcetam 2,000 mg Enteral Tube BID ??? polyethylene glycol 3350 17 g Oral QDAY ??? tamsulosin 0.4 mg Oral QDAY ??? thiamine 100 mg Enteral Tube QDAY Continuous: PRN: ??? SALINE LOCK, INSERT AND MAINTAIN AND 0.9% NaCl AND 0.9% NaCl ??? acetaminophen ??? artificial tears ??? bisacodyl Review of Systems: Unable to obtain secondary to baseline dementia OBJECTIVE Vital Signs: Temp: [97.9 ??F (36.6 ??C)] 97.9 ??F (36.6 ??C) Pulse: [92-107] 92 Resp: [17-21] 21 BP: (119-149)/(81-88) 149/88 Physical Exam: General: alert and orientedx3 (self, location, in part to situation; not to year), no acute distress, pleasant and cooperative. Follows commands Head: normocephalic, atraumatic Eyes: conjunctivae clear, extraocular muscles intact Mouth/Throat: oropharynx clear with no lesions, moist mucous membranes Neck: no jugular venous distension, no cervical lympadenopathy CV: regular rate and rhythm, no murmurs appreciated Resp: clear to auscultation bilaterally, no wheezes or crackles heard Abd: soft, mild generalized tenderness, nondistended, normoactive bowel sounds. PEG tube in place w/o surrounding erythema or tenderness Extremities: no lower extremity edema. S/p L AKA Skin: no rashes or lesions noted Neuro: moving all extremities well. PERRL. Left arm strength 4/5 compared with R arm strength 5/5 Lab Results: CBC: Recent Labs Component Name 06/12/2233606/11/22212106/03/22 0439 WBC 11.4* 13.2* 6.2 HGB 11.6* 12.0 12.8 HCT 36.2 35.6 38.3 MCV 96.5 94.4 95.5 Coagulation Panel: Recent Labs Component Name 05/11/22 1309 03/11/22 1059 03/05/22 1110 PT 13.5 15.4* 13.4 INR 1.0 1.2 1.0 BMP: Recent Labs Component Name 06/12/22 03306/11/22212106/03/22 0440 NA 142 142 146* POTASSIUM 4.0 4.6* 3.9 CL 107 106 108* CO2 25 27 27 BUN 15 20 9 CREATININE 0.82 0.92 0.81 CALCIUM 9.2 9.6 8.9 Recent Labs Component Name 06/12/22 03306/11/22212106/03/22 0440 MAGNESIUM 1.7 1.9 1.7 Recent Labs Component Name 06/12/22 03306/11/22212106/03/22 0440 PHOS 3.1 2.9 2.7* Hepatic Panel: Recent Labs Component Name 06/12/2233606/11/22212105/30/22 1538 03/03/18 1745 01/30/18 1255 11/28/17 0455 10/14/17 1349 10/13/17 1526 AST 11 14 - 23 ALT 6 7 6 - 10 - 9 11 ALKPHOS 62 70 62 - 75 - 86 88 TBILI 0.2 0.2 0.1* - 0.4 - 0.6 1.4* DBILI - - - - 0.2 - 0.2 0.4 IBILI - - - - 0.2 - 0.4 1.0 ALB 2.5* 2.7* 2.3* - 3.7 - 3.9 4.8 - = values in this interval not displayed. ABG: Recent Labs Component Name 05/11/22 1309 03/11/22 1059 02/25/21 1212 04/11/15 0622 PH 7.36 7.47* 7.34 7.38 PCO2 - 41 - 36 PO2 - 80 - 134* Amylase/Lipase: Invalid input(s): AMYL, LIPA Thyroid Studies: Recent Labs Component Name 06/12/22 0337 TSH 2.755 Cardiac Enzymes: Recent Labs Component Name 05/30/22 1750 05/30/22 1538 05/11/22 1833 03/08/22 1455 12/31/21 0412 CKTOTAL - - - - 77 TROPONINI <0.010 <0.010 <0.010 - - - = values in this interval not displayed. Lipid Panel: Recent Labs Component Name 04/11/15 0622 LDLCALC 102* HDL 81 Microbiology: Sputum cultures pending Imaging & Studies: CT CAP prelim read Right lower lung consolidation, which is consistent consistent with pneumonia (such as aspiration pneumonia). No acute visceral, vascular, or osseus injury identified in the abdomen or pelvis. Recent EEG 04/2022 EKG was observed throughout the recording. ?? IMPRESSION This is an abnormal cEEG due to 1) a single right centro-parietal onset seizure (at 18:29 PM on 05/12/2022), 2) epileptiform discharges over the right parietal, right fronto-temporal, and left temporal regions, 3) lateralized right hemispheric slowing, and 4) generalized slowing. ?? CLINICAL CORRELATION: Between 05/11/2022 to 05/12/2022, this study was suggestive of an increased tendency towards seizures, lateralized right hemispheric dysfunction, and mild encephalopathy. ?? Between 05/12/2022 to 05/13/2022, this study identified one right centro- parietal onset seizure (n = 1). There was possible clinical correlate in the form of tonic flexion of the left hand and non-versive leftward head turn. This study was additionally suggestive of an increased tendency towards seizures, lateralized right hemispheric dysfunction, and mild encephalopathy. ?? Between 05/13/2022 to 05/14/2022, this study was suggestive of an increased tendency towards seizures. There was a decrease in the occurrence of epileptiform discharges during this epoch. The study was additionally suggestive of lateralized right hemispheric dysfunction, and mild encephalopathy. ?? Ck Lorenzo MD ASSESSMENT & PLAN Mojgan Tabor is a 62 year old male w/ PMHx epilepsy, history of stroke with L sided deficits, dementia (baseline aox2), Zenker diverticulum, dysphagia, HTN, HLD, BPH, PAD s/p L AKA who developed fever and transient alteration in function at his SNF and was found to have aspiration pneumonia #Right lower lobe pneumonia, possibly aspiration pneumonia #Fever #Leukocytosis #Lethargy - CT showing RLL infiltrates c/w aspiration pneumonia. - There was no witnessed aspiration or witnessed seizure at his NH but noting increased secretions,fever of 102.5, increased lethargy - Recent admission for aspiration pneumonia treated with vancomycin and ceftriaxone (05/30). 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 #Epilepsy - Recent admission 04/2022 for multiple seizures. EEG inpatient showed multiple abnormal dischargessuggestive of seizures (see above). After this his AED's were increased upon discharge. Unclear if had additional seizure causing current aspiration pneumonia - Continue home clobazam 20mg daily, divalproex 100mg BID, lacosamide 200mg BID, Keppra 2000 BID #Peripheral arterial disease status post L AKA - continue aspirin, statin #Protein calorie malnutrition, PEG tube in place - On 65 cc/hr continuous tube feeds at [facility] per their documentation in addition to puree diet - Nutrition consult, appreciate assistance Code: Full Code Diet: DIET MODIFIED CONSISTENCY Electrolytes: Replete PRN PPx: Lovenox MISC: folate, thiamine, bowel regimen Access: PIV Dispo: Admit to Medicine. The above assessment and plan will be discussed with the attending. This note is not final until attested by attending physician. Bhavesh Timmons DO Internal Medicine Resident [facility] 06/12/2022 4:54 AM RIAL ASSISTANT Associated attestation - Magen Cardona II, MD - 06/12/2022 11:52 AM MATERIAL ASSISTANT I have seen and examined the patient with the resident and I agree with the findings and plan of care as documented by the resident. In addition: Mr. Tabor is without hypoxia, leukocytosis or fever noted since arrival to [facility]. Patient's CT scan is significant for aspiration but lower concern for pneumonia without leukocytosis, cough, or oxygen requirement. Patient is high risk for pneumonia and had recent treatment so for now will continue IVantibiotics and monitor over the next 24 hours with likely plan for de-escalation. Team to reach out to family/facility to learn more about his baseline. Patient was unable to confirm family history, social history due to his mentation. On my exam, he was able to tell me his name, , and age and denied that he was experiencing. However, other ROS limited due to his mentat Active Problem List Epilepsy, unspecified, not intractable, without status epilepticus (CMS/HCC) POA: Yes Alzheimer's disease with early onset (CMS/HCC) POA: Yes History of CVA (cerebrovascular accident) POA: Yes Hypertension POA: Yes PAD (peripheral artery disease) (CMS/HCC) POA: Yes Aspiration into lower respiratory tract, initial encounter POA: Yes Date of Service: 06/12/2022 Magen Cardona II, MD documented in this encounter Consult Notes * Gracia Hess - 06/15/2022 8:53 AM CSTAssociated Order(s): IP CONSULT TO TROUT FARMER SW newly assigned and following; SW acknowledge referral for return to facility. Patient is from [place] [id number]. SW called to inquire and make aware that patient is medically ready for disposition and can bed information be provided. SW spoke to patient's nurse who provided information RN: [phone] FAX: [phone] MD: Dalton CHRISTOPHER to schedule transportation. Gracia Hess HRIS COORDINATOR Care Coordination Motion Picture Projectionist RIAL ASSISTANT * Lowell Avilez, MINH/LD - 06/12/2022 12:26 PM CSTAssociated Order(s): IP CONSULT TO NUTRITIONAL SERV Initial Nutrition Assessment Brief Synopsis: Patient is at Nutrition Risk; Specific criteria can be found in assessment below Nutrition Plan: Jevity 1.5 at 60 ml/hr. Provides 2160 kcal, 92 g protein, 311 g carbohydrate, 1094 ml free water. +50 ml q 6 hrs free water flush or per MD if on IVF +100 ml q4 hrs free water flush or per MD if not on additional fluids Bolus recs 360 ml bolus 4x daily- jevity 1.5 +75 ml FWF before and after each bolus Recommendations to Physician: None Comments: RD consulted for TF recs. PARADICHLOROBENZENE TENDER recommends NPO. See TF recs above. Pt has previously tolerated this TF regimen per documentation. Pt has met criteria for malnutrition in previous admission on05/20. Documentation shows wt increase since last hospital visit, approximately a 10kg increase. Will continue to monitor as needed. Assessment: Med/Surg History and Clinical Diagnoses: PMHx epilepsy, history of stroke with L sided deficits, dementia (baseline aox2), Zenker diverticulum, dysphagia, HTN, HLD, BPH, PAD s/p L AKA who developed fever and transient alteration of awareness while at his SNF Weight: 68 kg (150 lb) BMI: Body mass index is 22.81 kg/m??. BMI Range: Normal , Recent Weights/Methods 05/06/2022 1038 05/11/2022 1230 05/11/2022 1232 05/12/2022 2202 05/30/2022 1434 05/31/2022 0115 06/01/2022 1200 06/11/20222015 Weight: 47.6 kg (105 lb) 49.9 kg (110 lb) 47.6 kg (104 lb 15 oz) 59.5 kg (131 lb 2.8 oz) 59.5 kg (131 lb 2.8 oz) 59.5 kg (131 lb 2.8 oz) 59.5 kg (131 lb 2.8 oz) 68 kg (150 lb) Weight Method (Utilize Scales): -- Estimated -- Bedscale -- -- -- -- Wt Comments: Monitoring. Obtain bescale weight if possible Diet order accuracy Current diet order: NPO Nutrition recommendation: alter/change nutrition order P.O.Intake for the past 48 hrs: No data recorded Supplement(s) Consumed- Last 48 hours None Food Allergies: No known food allergies GI Concerns: None Chewing/Swallowing: Dysphagia Pain affecting intake: No Estimated Needs: KCAL: 5033-3961 (25-30kcal/kg ABW) Protein (g): 64-76 (1.0-1.2 g/kg IBW) Fluid (ml): 1 ml/kcal Needs based on: Kcal/kg- (Comment) (68kg) Recommended Access Route: TF Laboratory values: Recent Labs Component Name 06/12/22 0337 06/11/22 2122 06/03/22 0440 05/31/22 0529 05/30/22 1538 BUN 15 20 9 - 13 CREATININE 0.82 0.92 0.81 - 0.47* NA 142 142 146* - 142 POTASSIUM 4.0 4.6* 3.9 - 4.1 CL 107 106 108* - 110* CO2 25 27 27 - 26 GLUCOSE 74 93 92 - 73 CALCIUM 9.2 9.6 8.9 - 8.1* PROT 6.0 6.3 - - 5.3* ALB 2.5* 2.7* - - 2.3* TBILI 0.2 0.2 - - 0.1* ALKPHOS 62 70 - - 62 ALT 6 7 - - 6 AST 11 14 - - 16 ANIONGAP 14 14 15 - 10 BCR 18 22 11 - 28* OSMOLALITY 293 296 300 - 293 AGRATIO 0.7* 0.8* - - 0.8* EGFR >90 >90 >90 - [...] folic acid (Folvite) tablet 1 mg ??? iopamidol (Isovue 370) 76 % contrast [...] ??? vancomycin (Vancocin) IV dose per pharmacy Current Outpatient Medications Medication ??? acetaminophen (Tylenol) 325 MG tablet ??? artificial tears ophthalmic solution ??? aspirin (Aspirin) 81 MG chew tablet ??? atorvastatin (Lipitor) 40 MG tablet ??? bisacodyl (Dulcolax) 10 MG suppository ??? cloBAZam (Onfi) 20 MG tablet ??? divalproex DR (Depakote) 500 MG tablet ??? folic acid (Folvite) 1 MG tablet ??? lacosamide (Vimpat) 200 MG tablet ??? levETIRAcetam (Keppra) 1000 MG tablet ??? polyethylene glycol 3350 (Miralax) 17 g packet ??? tamsulosin (Flomax) 0.4 MG capsule ??? thiamine (Vitamin B-1) 100 MG tablet Skin/Wound: No wounds Nutrition Care Process (1) Nutrition Diagnostic Statement: Inadequate oral intake related to:: swallowing difficulty as evidenced by:: oral intake insufficient to meet estimated requirements Nutrition Diagnostic Statement Progress: New diagnostic statement established Nutrition Intervention: Enteral nutrition: Monitoring: TF, labs, weights, BM Evaluation: Nutrition Goal: Enteral/Parenteral Nutrition prescription will be consistent with estimated nutrient needs Nutrition Goal Timeframe: Throughout stay Nutrition Goal Progress: New goal established Ascom #: [id number] RIAL ASSISTANT documented in this encounter ED Notes * Zulma Baptiste RN - 06/12/2022 4:43 PM CST Called jace King RN. RIAL ASSISTANT * Zulma Baptiste RN - 06/12/2022 2:03 PM CST Pt resting on comfortably on cot. RIAL ASSISTANT * Dimas Locke MD - 06/11/2022 10:50 PM CST ASSUME CARE NOTE Patient signed out to me by Dr. Vilchis at 11:00 PM. Briefly, the patient is being evaluated for weakness. Pt reportedly presenting from halfway after exhibiting fever, generalized weakness, and lethargy. Pt is reportedly oriented to self only at baseline. Labs thus far demonstrate hyperkalemia to 4.6 and leukocytosis to 13.2. Viral testing negative. The plan at present is likely admission pending further workup. Vitals: 06/11/22 2016 06/11/22 2203 BP: 131/81 119/83 Pulse: 107 98 Resp: 18 17 Temp: 97.9 ??F (36.6 ??C) SpO2: 97% 98% Weight: 68 kg (150 lb) Estimated body mass index is 22.81 kg/m?? as calculated from the following: Height as of 06/01/22: 1.727 m (5' 8 ). Weight as of this encounter: 68 kg (150 lb). At this time the following studies are : Labs Reviewed COMPREHENSIVE METABOLIC PANEL - Abnormal; Notable for the following components: Result Value Potassium 4.6 (*) Albumin 2.7 (*) Albumin/Globulin Ratio 0.8 (*) All other components within normal limits CBC W AUTO DIFFERENTIAL - Abnormal; Notable for the following components: WBC 13.2 (*) RBC 3.77 (*) Neutrophils % 70.5 (*) Lymphocytes % 18.3 (*) Neutrophils Absolute 9.31 (*) Monocytes Absolute 1.39 (*) All other components within normal limits [...] this EUA assay are available upon request. PROCALCITONIN LEVEL - Normal Narrative: The change [...] Change in Procalcitonin Calculator is available at [email or web address] If clinical picture has not improved and PCT remains high, reevaluate and consider treatment failure or other causes. PHOSPHORUS BLOOD - Normal MAGNESIUM BLOOD - Normal CULTURE SPUTUM+GRAM STAIN URINALYSIS REFLEX MICROSCOPIC REFLEX CULTURE Narrative: XR CHEST 1VW PORTABLE (Results Pending) No results found. ED Course: 0027- UA interpreted by myself shows no evidence of UTI. 0125- Upon reassessment, pt appears to be stable on RA and no longer requires supplemental O2. His SPO2 is 91%. Will monitor closely. 0142- Per nursing, pt appears to be desaturating to 88% on RA, with evident drool on his hospital gown. Due to concern for aspiration pneumonitis, will begin the pt on rocephin and azithromycin. [facility] internal medicine for admission. 0146- After discussion with internal medicine, the patient will be admitted to their service for further management of care. -Internal medicine has assumed care of this patient- Clinical Impression: 1. Sepsis, due to unspecified organism, unspecified whether acute organ dysfunction present ([facility]) Disposition: Admit to internal medicine By signing my name below, I, Odin Vicente, attest that this documentation has been prepared under the direction and in the presence of Dr. Locke. Signed: Laisha Thomas. I, Dr. Locke, personally performed the services described in this documentation. All medical record entries made by the scribe were at my direction and in my presence. I have reviewed the chart andagree that the record reflects my personal performance and is accurate and complete. RIAL ASSISTANT * Jenny Bruce RN - 06/11/2022 8:16 PM CST Pt BIBEMS from Snf with a C/O fever, weakness and Lethargica. AO*2 ( baseline as Per EMS),J tube in placed. RIAL ASSISTANT * Serjio Vilchis MD - 06/11/2022 8:10 PM CST ED ATTENDING NOTE History: Mojgan Tabor is a 62 year old male with a past medical history of seizures, CVA, anemia, Alzheimer's disease, and CVA BIBEMS for evaluation of fever. Patient states he had a seizure at his halfway, but states that he does not remember any of the events of the evening. He does point to his abdomen, when asked if he is experiencing any pain. Collateral information obtained from [facility] nursing staff, who denies any events of a seizure. Staff instead state that the patient has displayed altered mental status and is confused. long term reports that patient had fever of 102.5 degrees, which prompted them to call EMS. HPI is limited 2/2 mental acuity and dysphagia. Past Medical History: Diagnosis Date ??? CVA [...] Stability: Not on file Review of Systems Unable to perform ROS: Mental status change Constitutional: Positive for fever. HENT: Negative for congestion. Respiratory: Negative for cough. Cardiovascular: Negative for chest pain. Gastrointestinal: Positive for abdominal pain. Vitals: 06/11/222015 BP: 131/81 Pulse: 107 Resp: 18 Temp: 97.9 ??F (36.6 ??C) SpO2: 97% Weight: 68 kg (150 lb) Physical Exam Constitutional: Comments: Answers all questions appropriately HENT: Head: Normocephalic and atraumatic. Eyes: Pupils: Pupils are equal, round, and reactive to light. Cardiovascular: Rate and Rhythm: Normal rate and regular rhythm. Pulmonary: Effort: Pulmonary effort is normal. Breath sounds: Normal breath sounds. Abdominal: General: Bowel sounds are normal. There is no distension. Palpations: Abdomen is soft. Tenderness: There is no abdominal tenderness. Musculoskeletal: General: No deformity. Cervical back: Neck supple. Skin: General: Skin is warm and dry. Neurological: Mental Status: He is alert. He is disoriented and confused. Psychiatric: Behavior: Behavior is cooperative. MDM/Impression: Impression: 62 y/o male presenting with AMS Plan: Basic labs, UA, viral panel, CXR, reassessment - LABS: Labs Reviewed COMPREHENSIVE METABOLIC PANEL - Abnormal; Notable for the following components: Result Value Potassium 4.6 (*) Albumin 2.7 (*) Albumin/Globulin Ratio 0.8 (*) All other components within normal limits CBC W AUTO DIFFERENTIAL - Abnormal; Notable for the following components: WBC 13.2 (*) RBC 3.77 (*) Neutrophils % 70.5 (*) Lymphocytes % 18.3 (*) Neutrophils Absolute 9.31 (*) Monocytes Absolute 1.39 (*) All other components within normal limits [...] this EUA assay are available upon request. PROCALCITONIN LEVEL - Normal Narrative: The change [...] Change in Procalcitonin Calculator is available at [email or web address] If clinical picture has not improved and PCT remains high, reevaluate and consider treatment failure or other causes. PHOSPHORUS BLOOD - Normal MAGNESIUM BLOOD - Normal CULTURE SPUTUM+GRAM STAIN URINALYSIS REFLEX MICROSCOPIC REFLEX CULTURE - IMAGING: XR CHEST 1VW PORTABLE (Results Pending) No results found. Orders and Medicine administered during this encounter: Orders Placed This Encounter ??? CULTURE SPUTUM+GRAM STAIN ??? SARS-COV-2 (COVID-19) FLU A/B RSV PCR RAPID ??? XR CHEST 1VW PORTABLE ??? PROCALCITONIN LEVEL ??? PHOSPHORUS BLOOD ??? MAGNESIUM BLOOD ??? COMPREHENSIVE METABOLIC PANEL ??? CBC W AUTO DIFFERENTIAL ??? URINALYSIS REFLEX MICROSCOPIC REFLEX CULTURE Medications - No data to display ED Course: 10:46 PM: Viral swab is negative. WBC mildly elevated to 13.2K. CBC is WNL. 3:00 PM: Patient has been signed out to Dr. Locke. Pending UA. Clinical Impression: 1. Sepsis, due to unspecified organism, unspecified whether acute organ dysfunction present ([facility]) Disposition: Pending- WILSON to Dr. Delaney By signing my name below, I, Meredith Harris, attest that this documentation has been prepared under the direction and in the presence of Dr. Vilchis. Signed: Laisha Hess. By signing my name below, I, Pia Xie, attest that this documentation has been prepared under the direction and in the presence of Dr. Vilchis. Signed: Laisha Tejada. I, Dr. Vilchis, personally performed the services described in this documentation. All medical record entries made by the scribe were at my direction and in my presence. I have reviewed the chart and agree that the record reflects my personal performance and is accurate and complete. RIAL ASSISTANT * Pao Spencer, RN - 06/11/2022 8:05 PM CST Bed: 12 Expected date: Expected time: Means of arrival: Comments: Mancia [id number] ETA 8 min RIAL ASSISTANT documented in this encounter Plan of Treatment Upcoming Encounters Date Type Department Care Team (Late st Contact Info) Description 12/05/2024 1:00 PM CDT Office Visit [facility] - Neurology [address] [place] [address], [place] [id number] Sean Raymundo, DO [address] [place] [address] [place] [phone] documented as of this encounter Procedures Procedure Name Priority Date/Time Associated Diagnosis Comments CBC W AUTO DIFFERENTIAL AM Draw 06/15/2022 6:03 AM MATERIAL ASSISTANT Altered mental status, unspecified altered mental status type COMPREHENSIVE METABOLIC PANEL AM Draw 06/15/2022 6:03 AM MATERIAL ASSISTANT Altered mental status, unspecified altered mental status type PHOSPHORUS BLOOD AM Draw 06/15/2022 6:03 AM MATERIAL ASSISTANT Altered mental status, unspecified altered mental status type MAGNESIUM BLOOD AM Draw 06/15/2022 6:03 AM MATERIAL ASSISTANT Altered mental status, unspecified altered mental status type CBC W AUTO DIFFERENTIAL AM Draw 06/14/2022 5:24 AM MATERIAL ASSISTANT Altered mental status, unspecified altered mental status type COMPREHENSIVE METABOLIC PANEL AM Draw 06/14/2022 5:24 AM MATERIAL ASSISTANT Altered mental status, unspecified altered mental status type PHOSPHORUS BLOOD AM Draw 06/14/2022 5:24 AM MATERIAL ASSISTANT Altered mental status, unspecified altered mental status type MAGNESIUM BLOOD AM Draw 06/14/2022 5:24 AM MATERIAL ASSISTANT Altered mental status, unspecified altered mental status type CLOBAZAM QUANT BLOOD AM Draw 06/13/2022 5:34 AM MATERIAL ASSISTANT Altered mental status, unspecified altered mental status type LACOSAMIDE AM Draw 06/13/2022 5:34 AM MATERIAL ASSISTANT Altered mental status, unspecified altered mental status type LEVETIRACETAM LEVEL AM Draw 06/13/2022 5 :34 AM MATERIAL ASSISTANT Altered mental status, unspecified altered mental status type CBC W AUTO DIFFERENTIAL AM Draw 06/13/2022 5:34 AM MATERIAL ASSISTANT Altered mental status, unspecified altered mental status type COMPREHENSIVE METABOLIC PANEL AM Draw 06/13/2022 5:34 AM MATERIAL ASSISTANT Altered mental status, unspecified altered mental status type PHOSPHORUS BLOOD AM Draw 06/13/2022 5:34 AM MATERIAL ASSISTANT Altered mental status, unspecified altered mental status type MAGNESIUM BLOOD AM Draw 06/13/2022 5:34 AM MATERIAL ASSISTANT Altered mental status, unspecified altered mental status type GLUCOSE - POINT OF CARE Routine 06/13/2022 12:16 AM MATERIAL ASSISTANT CULTURE SPUTUM+GRAM STAIN STAT 06/12/2022 3:37 AM MATERIAL ASSISTANT TSH REFLEX FREE T4 STAT 06/12/2022 3: 37 AM MATERIAL ASSISTANT Altered mental status, unspecified altered mental status type CBC W AUTO DIFFERENTIAL STAT 06/12/2022 3:37 AM MATERIAL ASSISTANT Altered mental status, unspecified altered mental status type COMPREHENSIVE METABOLIC PANEL STAT 06/12/2022 3:37 AM MATERIAL ASSISTANT Altered mental status, unspecified altered mental status type PHOSPHORUS BLOOD STAT 06/12/2022 3:37 AM MATERIAL ASSISTANT Altered mental status, unspecified altered mental status type MAGNESIUM BLOOD STAT 06/12/2022 3:37 AM MATERIAL ASSISTANT Altered mental status, unspecified altered mental status type CT CHEST ABDOMEN PELVIS W CONT STAT 06/12/2022 2:25 AM MATERIAL ASSISTANT Aspiration into lower respiratory tract, initial encounter Hypoxia OT EVAL AND TREAT Routine 06/12/2022 2:1 1 AM MATERIAL ASSISTANT PT EVAL AND TREAT Routine 06/12/2022 2:1 1 AM MATERIAL ASSISTANT URINALYSIS REFLEX MICROSCOPIC REFLEX CULTURE STAT 06/12/2022 12:27 AM MATERIAL ASSISTANT SARS-COV-2 (COVID-19) FLU A/B RSV PCR RAPID STAT 06/11/2022 9:22 PM MATERIAL ASSISTANT PROCALCITONIN LEVEL STAT 06/11/2022 9 :22 PM MATERIAL ASSISTANT CBC W AUTO DIFFERENTIAL STAT 06/11/2022 9:22 PM MATERIAL ASSISTANT COMPREHENSIVE METABOLIC PANEL STAT 06/11/2022 9:22 PM MATERIAL ASSISTANT PHOSPHORUS BLOOD STAT 06/11/2022 9:22 PM MATERIAL ASSISTANT MAGNESIUM BLOOD STAT 06/11/2022 9:22 PM MATERIAL ASSISTANT XR CHEST 1VW PORTABLE STAT 06/11/2022 8:42 PM MATERIAL ASSISTANT Sepsis, due to unspecified organism, unspecified whether acute organ dysfunction present (HCC) documented in this encounter Results * (ABNORMAL) CBC W AUTO DIFFERENTIAL (06/15/2022 6:03 AM MATERIAL ASSISTANT) WBC 6.8 3.5 - 10.5 10? 3 /uL 06/15/2022 6:50 AM MATERIAL ASSISTANT [facility] RBC 4.08(L) 4.30 - 5.70 10? 6 /uL 06/15/2022 6:50 AM [facility] Hemoglobin 12.8 12.0 - 17.6 g/dL 06/15/2022 6:50 AM [facility] Hematocrit 38.1 35.2 - 51.7 % 06/15/2022 6:50 AM [facility] MCV 93.4 80.7 - 98.3 fL 06/15/2022 6:50 AM [facility] MCH 31.4 26.7 - 34.0 pg 06/15/2022 6:50 AM [facility] MCHC 33.6 30.8 - 35.9 g/dL 06/15/2022 6:50 AM [facility] RDW-SD 42.1 36.0 - 50.0 fL 06/15/2022 6:50 AM [facility] RDW-CV 12.3 11.2 - 14.8 % 06/15/2022 6:50 AM [facility] Platelet Count 213 150 - 400 10? 3 /uL 06/15/2022 6:50 AM [facility] MPV 12.9 9.4 - 12.9 fL 06/15/2022 6:50 AM [facility] nRBC Absolute 0.00 0 10? 3 /uL 06/15/2022 6:50 AM [facility] nRBC Auto 0.0 0 /100 WBC 06/15/2022 6:50 AM [facility] Neutrophils % 62.2 35.0 - 70.0 % 06/15/2022 6:50 AM [facility] Lymphocytes % 22.9 20.0 - 43.0 % 06/15/2022 6:50 AM [facility] Monocytes % 10.1 5.0 - 13.0 % 06/15/2022 6:50 AM [facility] Eosinophils % 4.4 0.0 - 6.0 % 06/15/2022 6:50 AM [facility] Basophil % 0.1 0.0 - 2.0 % 06/15/2022 6:50 AM [facility] Neutrophils Absolute 4.24 1.60 - 7.00 10? 3 /uL 06/15/2022 6:50 AM [facility] Lymphocyte Absolute 1.56 1.10 - 3.90 10? 3 /uL 06/15/2022 6:50 AM [facility] Monocytes Absolute 0.69 0.26 - 1.07 10? 3 /uL 06/15/2022 6:50 AM [facility] Eosinophils Absolute 0.30 0.00 - 0.47 10? 3 /uL 06/15/2022 6:50 AM [facility] Basophils Absolute 0.01 0.00 - 0.08 10? 3 /uL 06/15/2022 6:50 AM [facility] Immature Granulocytes % 0.3 0.0 - 1.0 % 06/15/2022 6:50 AM [facility] Immature Granulocytes Absolute 0.02 06/15/2022 6:50 AM [facility] Blood BLOOD SPECIMEN / Unknown Lab Venipuncture / Unknown 06/15/2022 6:03 AM MATERIAL ASSISTANT 06/15/2022 6:37 AM [facility] Dimas Locke MD LAB - HEMATOLOGY ORD ERABLES [facility] [address] [place] [address], [facility] [phone] * (ABNORMAL) COMPREHENSIVE METABOLIC PANEL (06/15/2022 6:03 AM [facility]) BUN 12 7 - 26 mg/dL 06/15/2022 7:09 AM [facility] Creatinine 0.67(L) 0.71 - 1.16 mg/dL 06/15/2022 7:09 AM [facility] Sodium 143 136 - 145 mmol/L 06/15/2022 7:09 AM [facility] Potassium 4.0 3.5 - 4.5 mmol/L 06/15/2022 7:09 AM [facility] Chloride 103 98 - 107 mmol/L 06/15/2022 7:09 AM [facility] CO2 27 22 - 29 mmol/L 06/15/2022 7:09 AM [facility] Glucose 120(H) 70 - 115 mg/dL 06/15/2022 7:09 AM [facility] Calcium 9.9 8.4 - 10.2 mg/dL 06/15/2022 7:09 AM [facility] Protein Total 7.1 6.0 - 8.3 g/dL 06/15/2022 7:09 AM [facility] Albumin 2.8(L) 3.4 - 5.0 g/dL 06/15/2022 7:09 AM [facility] Bilirubin Total 0.2 0.2 - 1.2 mg/dL 06/15/2022 7:09 AM [facility] Alkaline Phosphatase 77 40 - 150 U/L 06/15/2022 7:09 AM [facility] ALT 9 5 - 55 U/L 06/15/2022 7:09 AM [facility] AST 13 5 - 34 U/L 06/15/2022 7:09 AM [facility] Anion Gap 17 8 - 18 06/15/2022 7:09 AM [facility] BUN/Creatinine Ratio 18 7 - 23 06/15/2022 7:09 AM [facility] Osmolality Calculated 297 270 - 300 mOsm/kg 06/15/2022 7:09 AM [facility] Albumin/Globulin Ratio 0.7(L) 1.1 - 2.3 06/15/2022 7:09 AM [facility] eGFR by CKD-EPI >90 >=90 mL/min/1.7 3 m2 06/15/2022 7:09 AM [facility] Blood BLOOD SPECIMEN / Unknown Lab Venipuncture / Unknown 06/15/2022 6:03 AM MATERIAL ASSISTANT 06/15/2022 6:37 AM [facility] Dimas Locke MD LAB - CHEMISTRY ORDE [facility] Organization Address City/State/ZIP Co de Phone Number [facility] [address] [place] [address], [facility] [phone] * MAGNESIUM BLOOD (06/15/2022 6:03 AM [facility]) Magnesium 1.7 1.6 - 2.6 mg/dL 06/15/2022 7:09 AM [facility] Blood BLOOD SPECIMEN / Unknown Lab Venipuncture / Unknown 06/15/2022 6:03 AM MATERIAL ASSISTANT 06/15/2022 6:37 AM MATERIAL ASSISTANT Dimas Locke MD LAB - CHEMISTRY MARSHAL MEDEROS [address] [address], [facility] [phone] * PHOSPHORUS BLOOD (06/15/2022 6:03 AM MATERIAL ASSISTANT) Phosphorus 3.0 2.8 - 5.1 mg/dL 06/15/2022 7:09 AM [facility] Blood BLOOD SPECIMEN / Unknown Lab Venipuncture / Unknown 06/15/2022 6:03 AM MATERIAL ASSISTANT 06/15/2022 6:37 AM MATERIAL ASSISTANT Dimas Locke MD LAB - CHEMISTRY MARSHAL MEDEROS Performing Organization Address [facility]/ZIP Co de Phone Number [address] [address], [facility] [phone] * (ABNORMAL) CBC W AUTO DIFFERENTIAL (06/14/2022 5:24 AM MATERIAL ASSISTANT) WBC 6.2 3.5 - 10.5 10? 3 /uL 06/14/2022 6:20 AM [facility] RBC 3.75(L) 4.30 - 5.70 10? 6 /uL 06/14/2022 6:20 AM [facility] Hemoglobin 11.9(L) 12.0 - 17.6 g/dL 06/14/2022 6:20 AM [facility] Hematocrit 35.2 35.2 - 51.7 % 06/14/2022 6:20 AM [facility] MCV 93.9 80.7 - 98.3 fL 06/14/2022 6:20 AM [facility] MCH 31.7 26.7 - 34.0 pg 06/14/2022 6:20 AM [facility] MCHC 33.8 30.8 - 35.9 g/dL 06/14/2022 6:20 AM [facility] RDW-SD 42.6 36.0 - 50.0 fL 06/14/2022 6:20 AM [facility] RDW-CV 12.3 11.2 - 14.8 % 06/14/2022 6:20 AM [facility] Platelet Count 188 150 - 400 10? 3 /uL 06/14/2022 6:20 AM [facility] MPV 12.9 9.4 - 12.9 fL 06/14/2022 6:20 AM [facility] nRBC Absolute 0.00 0 10? 3 /uL 06/14/2022 6:20 AM [facility] nRBC Auto 0.0 0 /100 WBC 06/14/2022 6:20 AM [facility] Neutrophils % 48.4 35.0 - 70.0 % 06/14/2022 6:20 AM [facility] Lymphocytes % 33.2 20.0 - 43.0 % 06/14/2022 6:20 AM [facility] Monocytes % 10.2 5.0 - 13.0 % 06/14/2022 6:20 AM [facility] Eosinophils % 7.5(H) 0.0 - 6.0 % 06/14/2022 6:20 AM [facility] Basophil % 0.5 0.0 - 2.0 % 06/14/2022 6:20 AM [facility] Neutrophils Absolute 2.98 1.60 - 7.00 10? 3 /uL 06/14/2022 6:20 AM [facility] Lymphocyte Absolute 2.04 1.10 - 3.90 10? 3 /uL 06/14/2022 6:20 AM [facility] Monocytes Absolute 0.63 0.26 - 1.07 10? 3 /uL 06/14/2022 6:20 AM [facility] Eosinophils Absolute 0.46 0.00 - 0.47 10? 3 /uL 06/14/2022 6:20 AM [facility] Basophils Absolute 0.03 0.00 - 0.08 10? 3 /uL 06/14/2022 6:20 AM [facility] Immature Granulocytes % 0.2 0.0 - 1.0 % 06/14/2022 6:20 AM [facility] Immature Granulocytes Absolute 0.01 06/14/2022 6:20 AM [facility] Blood BLOOD SPECIMEN / Unknown Lab Venipuncture / Unknown 06/14/2022 5:24 AM MATERIAL ASSISTANT 06/14/2022 6:06 AM [facility] Dimas Locke MD LAB - HEMATOLOGY ORD ERABLES [facility] [address] [place] [address] [phone] * (ABNORMAL) COMPREHENSIVE METABOLIC PANEL (06/14/2022 5:24 AM [facility]) BUN 15 7 - 26 mg/dL 06/14/2022 6:37 AM [facility] Creatinine 0.77 0.71 - 1.16 mg/dL 06/14/2022 6:37 AM [facility] Sodium 142 136 - 145 mmol/L 06/14/2022 6:37 AM [facility] Potassium 4.0 3.5 - 4.5 mmol/L 06/14/2022 6:37 AM [facility] Chloride 106 98 - 107 mmol/L 06/14/2022 6:37 AM [facility] CO2 26 22 - 29 mmol/L 06/14/2022 6:37 AM [facility] Glucose 118(H) 70 - 115 mg/dL 06/14/2022 6:37 AM [facility] Calcium 9.7 8.4 - 10.2 mg/dL 06/14/2022 6:37 AM [facility] Protein Total 6.6 6.0 - 8.3 g/dL 06/14/2022 6:37 AM [facility] Albumin 2.5(L) 3.4 - 5.0 g/dL 06/14/2022 6:37 AM [facility] Bilirubin Total 0.2 0.2 - 1.2 mg/dL 06/14/2022 6:37 AM [facility] Alkaline Phosphatase 71 40 - 150 U/L 06/14/2022 6:37 AM [facility] ALT 8 5 - 55 U/L 06/14/2022 6:37 AM [facility] AST 14 5 - 34 U/L 06/14/2022 6:37 AM [facility] Anion Gap 14 8 - 18 06/14/2022 6:37 AM [facility] BUN/Creatinine Ratio 19 7 - 23 06/14/2022 6:37 AM [facility] Osmolality Calculated 296 270 - 300 mOsm/kg 06/14/2022 6:37 AM [facility] Albumin/Globulin Ratio 0.6(L) 1.1 - 2.3 06/14/2022 6:37 AM [facility] eGFR by CKD-EPI >90 >=90 mL/min/1.7 3 m2 06/14/2022 6:37 AM [facility] Blood BLOOD SPECIMEN / Unknown Lab Venipuncture / Unknown 06/14/2022 5:24 AM MATERIAL ASSISTANT 06/14/2022 6:07 AM MATERIAL ASSISTANT Dimas Locke MD LAB - CHEMISTRY ORDByron MEDEROS Performing Organization Address City/[facility]/ZIP Co de Phone Number [address] [address], [facility] [phone] * MAGNESIUM BLOOD (06/14/2022 5:24 AM MATERIAL ASSISTANT) Magnesium 1.7 1.6 - 2.6 mg/dL 06/14/2022 6:37 AM [facility] Blood BLOOD SPECIMEN / Unknown Lab Venipuncture / Unknown 06/14/2022 5:24 AM MATERIAL ASSISTANT 06/14/2022 6:07 AM MATERIAL ASSISTANT Dimas Locke MD LAB - CHEMISTRY ORDByron MEDEROS [address] [address], [facility] [phone] * (ABNORMAL) PHOSPHORUS BLOOD (06/14/2022 5:24 AM MATERIAL ASSISTANT) Phosphorus 2.6(L) 2.8 - 5.1 mg/dL 06/14/2022 6:37 AM [facility] Blood BLOOD SPECIMEN / Unknown Lab Venipuncture / Unknown 06/14/2022 5:24 AM MATERIAL ASSISTANT 06/14/2022 6:07 AM [facility] Dimas Locke MD LAB - CHEMISTRY MARSHAL MEDEROS [facility] [address] [place] [address], [facility] [phone] * (ABNORMAL) CBC W AUTO DIFFERENTIAL (06/13/2022 5:34 AM [facility]) WBC 7.5 3.5 - 10.5 10? 3 /uL 06/13/2022 6:09 AM [facility] RBC 3.76(L) 4.30 - 5.70 10? 6 /uL 06/13/2022 6:09 AM [facility] Hemoglobin 11.7(L) 12.0 - 17.6 g/dL 06/13/2022 6:09 AM [facility] Hematocrit 35.8 35.2 - 51.7 % 06/13/2022 6:09 AM [facility] MCV 95.2 80.7 - 98.3 fL 06/13/2022 6:09 AM [facility] MCH 31.1 26.7 - 34.0 pg 06/13/2022 6:09 AM [facility] MCHC 32.7 30.8 - 35.9 g/dL 06/13/2022 6:09 AM [facility] RDW-SD 42.6 36.0 - 50.0 fL 06/13/2022 6:09 AM [facility] RDW-CV 12.2 11.2 - 14.8 % 06/13/2022 6:09 AM [facility] Platelet Count 171 150 - 400 10? 3 /uL 06/13/2022 6:09 AM [facility] MPV 12.9 9.4 - 12.9 fL 06/13/2022 6:09 AM [facility] nRBC Absolute 0.00 0 10? 3 /uL 06/13/2022 6:09 AM [facility] nRBC Auto 0.0 0 /100 WBC 06/13/2022 6:09 AM [facility] Neutrophils % 55.9 35.0 - 70.0 % 06/13/2022 6:09 AM [facility] Lymphocytes % 27.4 20.0 - 43.0 % 06/13/2022 6:09 AM [facility] Monocytes % 8.4 5.0 - 13.0 % 06/13/2022 6:09 AM [facility] Eosinophils % 7.5(H) 0.0 - 6.0 % 06/13/2022 6:09 AM [facility] Basophil % 0.5 0.0 - 2.0 % 06/13/2022 6:09 AM [facility] Neutrophils Absolute 4.19 1.60 - 7.00 10? 3 /uL 06/13/2022 6:09 AM [facility] Lymphocyte Absolute 2.05 1.10 - 3.90 10? 3 /uL 06/13/2022 6:09 AM [facility] Monocytes Absolute 0.63 0.26 - 1.07 10? 3 /uL 06/13/2022 6:09 AM [facility] Eosinophils Absolute 0.56(H) 0.00 - 0.47 10? 3 /uL 06/13/2022 6:09 AM [facility] Basophils Absolute 0.04 0.00 - 0.08 10? 3 /uL 06/13/2022 6:09 AM [facility] Immature Granulocytes % 0.3 0.0 - 1.0 % 06/13/2022 6:09 AM [facility] Immature Granulocytes Absolute 0.02 06/13/2022 6:09 AM [facility] Blood BLOOD SPECIMEN / Unknown Lab Venipuncture / Unknown 06/13/2022 5:34 AM MATERIAL ASSISTANT 06/13/2022 5:56 AM [facility] Dimas Locke MD LAB - HEMATOLOGY ORD ERABLES [facility] [address] [place] [address], [facility] [phone] * (ABNORMAL) COMPREHENSIVE METABOLIC PANEL (06/13/2022 5:34 AM [facility]) BUN 14 7 - 26 mg/dL 06/13/2022 6:28 AM [facility] Creatinine 0.83 0.71 - 1.16 mg/dL 06/13/2022 6:28 AM [facility] Sodium 143 136 - 145 mmol/L 06/13/2022 6:28 AM [facility] Potassium 3.9 3.5 - 4.5 mmol/L 06/13/2022 6:28 AM [facility] Chloride 108(H) 98 - 107 mmol/L 06/13/2022 6:28 AM [facility] CO2 26 22 - 29 mmol/L 06/13/2022 6:28 AM [facility] Glucose 78 70 - 115 mg/dL 06/13/2022 6:28 AM [facility] Calcium 9.9 8.4 - 10.2 mg/dL 06/13/2022 6:28 AM [facility] Protein Total 6.3 6.0 - 8.3 g/dL 06/13/2022 6:28 AM [facility] Albumin 2.4(L) 3.4 - 5.0 g/dL 06/13/2022 6:28 AM [facility] Bilirubin Total 0.3 0.2 - 1.2 mg/dL 06/13/2022 6:28 AM [facility] Alkaline Phosphatase 65 40 - 150 U/L 06/13/2022 6:28 AM [facility] ALT 7 5 - 55 U/L 06/13/2022 6:28 AM [facility] AST 15 5 - 34 U/L 06/13/2022 6:28 AM [facility] Anion Gap 13 8 - 18 06/13/2022 6:28 AM [facility] BUN/Creatinine Ratio 17 7 - 23 06/13/2022 6:28 AM [facility] Osmolality Calculated 295 270 - 300 mOsm/kg 06/13/2022 6:28 AM [facility] Albumin/Globulin Ratio 0.6(L) 1.1 - 2.3 06/13/2022 6:28 AM [facility] eGFR by CKD-EPI >90 >=90 mL/min/1.7 3 m2 06/13/2022 6:28 AM [facility] Blood BLOOD SPECIMEN / Unknown Lab Venipuncture / Unknown 06/13/2022 5:34 AM MATERIAL ASSISTANT 06/13/2022 5:56 AM MATERIAL ASSISTANT Narrative Authorizing Provider Result Hallie Locke MD LAB - CHEMISTRY [facility]SH[facility] MEDER[facility] [address] [address], [place] [phone] * MAGNESIUM BLOOD (06/13/2022 5:34 AM MATERIAL ASSISTANT) Magnesium 1.7 1.6 - 2.6 mg/dL 06/13/2022 6:28 AM MATERIAL ASSISTANT [facility] Blood BLOOD SPECIMEN / Unknown Lab Venipuncture / Unknown 06/13/2022 5:34 AM MATERIAL ASSISTANT 06/13/2022 5:56 AM MATERIAL ASSISTANT Dimas Locke MD LAB - CHEMISTRY MARSHAL MEDEROS Performing Organization Address City/[facility]/ZIP Co de Phone Number [address] [address], [place] [phone] * PHOSPHORUS BLOOD (06/13/2022 5:34 AM MATERIAL ASSISTANT) Phosphorus 3.1 2.8 - 5.1 mg/dL 06/13/2022 6:28 AM MATERIAL ASSISTANT [facility] Blood BLOOD SPECIMEN / Unknown Lab Venipuncture / Unknown 06/13/2022 5:34 AM MATERIAL ASSISTANT 06/13/2022 5:56 AM MATERIAL ASSISTANT Dimas Locke MD LAB - CHEMISTRY [facility] [address] [address], [place] [phone] * CLOBAZAM QUANT BLOOD (06/13/2022 5:34 AM MATERIAL ASSISTANT) Clobazam 184 30 - 300 ng/mL 06/17/2022 3:40 PM MATERIAL ASSISTANT [facility] ([facility]) Comment: INTERPRETIVE INFORMATION: Clobazam and Metabolite, Quant, [...] influenced by drug-drug interactions and by poor [id number] metabolism. ??The metabolite, N-desmethylclobazam has about 20% activity of clobazam. ??Adverse effects may include constipation, somnolence, sedation and skin rash. ??The concomitant use of clobazam with other central nervous system (RAC[employer]) depressants may increase the risk of somnolence and sedation. Test developed and characteristics determined by [employer]. See Compliance Statement B: [employer]/CS N-Desmethylclobazam 496 300 - 3000 ng/mL 06/17/2022 3:40 PM MATERIAL ASSISTANT [facility] ([facility]) Comment: Performed By: [facility] [address] [place] [address] Line Assembler: Power Milian MD, PhD Blood BLOOD SPECIMEN / Unknown Lab Venipuncture / Unknown 06/13/2022 5:34 AM MATERIAL ASSISTANT 06/13/2022 5:50 AM MATERIAL ASSISTANT Magen Cardona II, MD LAB - CHEMISTRY ORDERABLES [facility]) [address] * LACOSAMIDE (06/13/2022 5:34 AM MATERIAL ASSISTANT) [facility] [address] Lacosamide 8.0 1.0 - 10.0 ug/mL 06/16/2022 3:33 PM MATERIAL ASSISTANT [employer] ([facility]) Comment: INTERPRETIVE INFORMATION: Lacosamide, Serum [...] developed and its performance characteristics determined by [email or web address]. It has not been cleared or approved by the [place] Food and Drug Administration. This test was performed in a CLIA-certified laboratory and is intended for clinical purposes. Performed By: [facility] [employer] [address] [place] [address] Line Assembler: Power Milian MD, PhD Blood BLOOD SPECIMEN / Unknown Lab Venipuncture / Unknown 06/13/2022 5:34 AM MATERIAL ASSISTANT 06/13/2022 5:51 AM MATERIAL ASSISTANT Magen Cardona II, MD LAB - CHEMISTRY ORDERABLES Performing Organization Address City/State/[facility] Co de Phone Number [facility] ([facility]) [address] [place] [address] * (ABNORMAL) LEVETIRACETAM LEVEL (06/13/2022 5:34 AM MATERIAL ASSISTANT) [facility] [address] Levetiracetam 51(H) 10 - 40 ug/mL 06/15/2022 3:25 PM MATERIAL ASSISTANT [facility] ([facility]) Comment: INTERPRETIVE INFORMATION: Keppra (Levetiracetam) Therapeutic Range: ??10-40 ug/mL ?Toxic: ??Not well Established Pharmacokinetics of levetiracetam are affected by renal function. Adverse effects may include somnolence, weakness, headache and vomiting. This levetiracetam (Keppra) immunoassay uses the [employer] reagents, which has known cross-reactivity with the drug brivaracetam (Briviact) and may report inaccurate results. Patients transitioning from levetiracetam to brivaracetam or those who are using both medications should not monitor drug concentrations with the [employer] assay. These patients should be monitored using a validated chromatographic methodology that distinguishes between drugs to determine drug concentrations. Performed By: [facility] [employer] [address] [place] [address] Line Assembler: Power Milian MD, PhD Blood BLOOD SPECIMEN / Unknown Lab Venipuncture / Unknown 06/13/2022 5:34 AM MATERIAL ASSISTANT 06/13/2022 5:51 AM MATERIAL ASSISTANT Magen Cardona II, MD LAB - THERAPEUTI C DRUG MONITORING ORDERABLES Performing Organization Address City/[facility]/ZIP Co de Phone Number [facility] ([facility]) [address] [place] [address], [facility] * GLUCOSE - POINT OF CARE (06/13/2022 12:16 AM MATERIAL ASSISTANT) Glucose WB/POC 79 70 - 115 mg/dL 06/13/2022 12:21 AM MATERIAL ASSISTANT [facility] Specimen Type Cap Fingerstick 2022 12:21 AM MATERIAL ASSISTANT [facility] Blood BLOOD SPECIMEN / Unknown 06/13/2022 12:16 AM MATERIAL ASSISTANT 06/13/2022 12:21 AM MATERIAL ASSISTANT Norma Briones MD LAB - POINT OF CARE ORDERABLES Performing Organization Address [facility]/ZIP Co de Phone Number [address] [address], [place] [phone] * TSH REFLEX FREE T4 (06/12/2022 3:37 AM MATERIAL ASSISTANT) TSH 2.755 0.350 - 4.940 uIU/mL 06/12/2022 4:33 AM MATERIAL ASSISTANT [facility] Blood BLOOD SPECIMEN / Unknown Venipuncture / Unknown 06/12/2022 3:37 AM MATERIAL ASSISTANT 06/12/2022 3:47 AM MATERIAL ASSISTANT Dimas Locke MD LAB - CHEMISTRY MARSHAL MEDEROS Performing Organization Address City/[facility]/ZIP Co de Phone Number [address] [address], [place] [phone] * (ABNORMAL) CBC W AUTO DIFFERENTIAL (06/12/2022 3:37 AM [facility]) WBC 11.4(H) 3.5 - 10.5 10? 3 /uL 06/12/2022 3:50 AM [facility] RBC 3.75(L) 4.30 - 5.70 10? 6 /uL 06/12/2022 3:50 AM [facility] Hemoglobin 11.6(L) 12.0 - 17.6 g/dL 06/12/2022 3:50 AM [facility] Hematocrit 36.2 35.2 - 51.7 % 06/12/2022 3:50 AM [facility] MCV 96.5 80.7 - 98.3 fL 06/12/2022 3:50 AM [facility] MCH 30.9 26.7 - 34.0 pg 06/12/2022 3:50 AM [facility] MCHC 32.0 30.8 - 35.9 g/dL 06/12/2022 3:50 AM [facility] RDW-SD 44.6 36.0 - 50.0 fL 06/12/2022 3:50 AM [facility] RDW-CV 12.6 11.2 - 14.8 % 06/12/2022 3:50 AM [facility] Platelet Count 165 150 - 400 10? 3 /uL 06/12/2022 3:50 AM [facility] MPV 12.9 9.4 - 12.9 fL 06/12/2022 3:50 AM [facility] nRBC Absolute 0.00 0 10? 3 /uL 06/12/2022 3:50 AM [facility] nRBC Auto 0.0 0 /100 WBC 06/12/2022 3:50 AM [facility] Neutrophils % 67.2 35.0 - 70.0 % 06/12/2022 3:50 AM [facility] Lymphocytes % 21.2 20.0 - 43.0 % 06/12/2022 3:50 AM [facility] Monocytes % 9.9 5.0 - 13.0 % 06/12/2022 3:50 AM [facility] Eosinophils % 1.0 0.0 - 6.0 % 06/12/2022 3:50 AM [facility] Basophil % 0.3 0.0 - 2.0 % 06/12/2022 3:50 AM [facility] Neutrophils Absolute 7.69(H) 1.60 - 7.00 10? 3 /uL 06/12/2022 3:50 AM [facility] Lymphocyte Absolute 2.43 1.10 - 3.90 10? 3 /uL 06/12/2022 3:50 AM [facility] Monocytes Absolute 1.13(H) 0.26 - 1.07 10? 3 /uL 06/12/2022 3:50 AM [facility] Eosinophils Absolute 0.11 0.00 - 0.47 10? 3 /uL 06/12/2022 3:50 AM [facility] Basophils Absolute 0.03 0.00 - 0.08 10? 3 /uL 06/12/2022 3:50 AM [facility] Immature Granulocytes % 0.4 0.0 - 1.0 % 06/12/2022 3:50 AM [facility] Immature Granulocytes Absolute 0.05 06/12/2022 3:50 AM [facility] Blood BLOOD SPECIMEN / Unknown Venipuncture / Unknown 06/12/2022 3:37 AM MATERIAL ASSISTANT 06/12/2022 3:47 AM [facility] Dimas Locke MD LAB - HEMATOLOGY ORD ERABLES Performing Organization Address City/State/[facility] Co de Phone Number [facility] [address] [place] [address], [facility] [phone] * (ABNORMAL) COMPREHENSIVE METABOLIC PANEL (06/12/2022 3:37 AM MATERIAL ASSISTANT) BUN 15 7 - 26 mg/dL 06/12/2022 4:16 AM [facility] Creatinine 0.82 0.71 - 1.16 mg/dL 06/12/2022 4:16 AM [facility] Sodium 142 136 - 145 mmol/L 06/12/2022 4:16 AM [facility] Potassium 4.0 3.5 - 4.5 mmol/L 06/12/2022 4:16 AM [facility] Chloride 107 98 - 107 mmol/L 06/12/2022 4:16 AM [facility] CO2 25 22 - 29 mmol/L 06/12/2022 4:16 AM [facility] Glucose 74 70 - 115 mg/dL 06/12/2022 4:16 AM [facility] Calcium 9.2 8.4 - 10.2 mg/dL 06/12/2022 4:16 AM [facility] Protein Total 6.0 6.0 - 8.3 g/dL 06/12/2022 4:16 AM [facility] Albumin 2.5(L) 3.4 - 5.0 g/dL 06/12/2022 4:16 AM [facility] Bilirubin Total 0.2 0.2 - 1.2 mg/dL 06/12/2022 4:16 AM [facility] Alkaline Phosphatase 62 40 - 150 U/L 06/12/2022 4:16 AM [facility] ALT 6 5 - 55 U/L 06/12/2022 4:16 AM [facility] AST 11 5 - 34 U/L 06/12/2022 4:16 AM [facility] Anion Gap 14 8 - 18 06/12/2022 4:16 AM [facility] BUN/Creatinine Ratio 18 7 - 23 06/12/2022 4:16 AM [facility] Osmolality Calculated 293 270 - 300 mOsm/kg 06/12/2022 4:16 AM [facility] Albumin/Globulin Ratio 0.7(L) 1.1 - 2.3 06/12/2022 4:16 AM [facility] eGFR by CKD-EPI >90 >=90 mL/min/1.7 3 m2 06/12/2022 4:16 AM [facility] Blood BLOOD SPECIMEN / Unknown Venipuncture / Unknown 06/12/2022 3:37 AM MATERIAL ASSISTANT 06/12/2022 3:47 AM [facility] Dimas Locke MD LAB - CHEMISTRY MARSHAL MEDEROS [facility] Organization Address City/State/ZIP Co de Phone Number [facility] [address] [place] [address], [facility] [phone] * MAGNESIUM BLOOD (06/12/2022 3:37 AM MATERIAL ASSISTANT) Magnesium 1.7 1.6 - 2.6 mg/dL 06/12/2022 4:16 AM MATERIAL ASSISTANT [facility] Blood BLOOD SPECIMEN / Unknown Venipuncture / Unknown 06/12/2022 3:37 AM MATERIAL ASSISTANT 06/12/2022 3:47 AM MATERIAL ASSISTANT Dimas Locke MD LAB - CHEMISTRY ORDByron MEDEROS [facility] [address] [place] [address], [facility] [phone] * PHOSPHORUS BLOOD (06/12/2022 3:37 AM MATERIAL ASSISTANT) Phosphorus 3.1 2.8 - 5.1 mg/dL 06/12/2022 4:16 AM MATERIAL ASSISTANT [facility] Blood BLOOD SPECIMEN / Unknown Venipuncture / Unknown 06/12/2022 3:37 AM MATERIAL ASSISTANT 06/12/2022 3:47 AM MATERIAL ASSISTANT Dimas Locke MD LAB - CHEMISTRY ORDByron MEDEROS [address] [address], [place] [phone] * CULTURE SPUTUM+GRAM STAIN (06/12/2022 3:37 AM MATERIAL ASSISTANT) Culture Heavy normal oropharyngeal heidi JELLY 06/14/2022 5:02 AM MATERIAL ASSISTANT [facility] Gram Stain <10 per low power field Squamous epithelial cells 06/14/2022 5:02 AM MATERIAL ASSISTANT [facility] Gram Stain >= 25 per low power field Polymorphonuclear cells 06/14/2022 5:02 AM MATERIAL ASSISTANT [facility] Gram Stain Heavy Gram-negative diplococci 06/14/2022 5:02 AM MATERIAL ASSISTANT [facility] Gram Stain Moderate Gram-positive bacilli 06/14/2022 5:02 AM MATERIAL ASSISTANT [facility] Gram Stain Moderate Gram-positive cocci pairs and chains 06/14/2022 5:02 AM MATERIAL ASSISTANT [facility] Microbiology SPUTUM / Unknown Collection / Unknown 06/12/2022 3:37 AM MATERIAL ASSISTANT 06/12/2022 4:10 AM MATERIAL ASSISTANT Serjio Vilchis MD LAB - MICROBIOLOGY O RDERABLES [facility] [address] [place], [place] [address], [facility] [phone] * CT CHEST ABDOMEN PELVIS W CONT (06/12/2022 2:25 AM MATERIAL ASSISTANT) Anatomical Region Laterality Modality Chest, Abdomen, Pelvis Computed Tomography 06/12/2022 2:28 AM MATERIAL ASSISTANT Impressions 06/12/2022 9:50 AM MATERIAL ASSISTANT Impression: 1.Right lower lung consolidation compatible with aspiration and/or pneumonia. 2.Several enhancing hepatic lesions measuring up to 1.1 cm. [...] right. > Dictated by Brandee Celestin MD (physician vice president). I, Charles Hare MD have personally reviewed and interpreted this examination/study. > Interpreting Provider: Charles Hare MD on 06/12/2022 9:50 AM Narrative 06/12/2022 9:50 AM MATERIAL ASSISTANT PROCEDURE: ??CT CHEST ABDOMEN PELVIS W CONT, DATE/TIME OF EXAM: ??06/12/2022 2:26 AM, LOCATION ??[facility] INDICATION: T17.800A: Aspiration into lower respiratory tract, initial encounter R09.02: Hypoxia ADDITIONAL CLINICAL INFORMATION: Ordering Provider Reason For Exam: ??hx of J tube? source of infection? aspriation? COMPARISON: CT chest PE with abdomen pelvis with contrast dated 05/30/2022. TECHNIQUE: CT of the chest, abdomen, and pelvis was performed after the uneventful administration of 100 mL of Isovue 370 intravenous contrast according to standard protocol. Findings: Chest: Lower Neck and Axillae: Normal. Lungs: Right lower lung consolidation. No pleural fluid or pneumothorax is present. Heart and Pericardium: The cardiac chambers are normal in size. No pericardial fluid or thickening is present. Mediastinum and Almita: No mediastinal hemorrhage is present. No enlarged lymph nodes are present. Thoracic Vasculature: No vascular abnormality is present. Abdomen/pelvis: Liver: Several enhancing lesions, for example 1.1 cm in segment 8 (series 3 image 101). 0.6 cm segment 8 (image 34). 1.0 cm segment 7 (image 88). These lesions are more conspicuous than on the 05/30/2022 study and an older CT dated 07/01/2019, possibly due to differences in the phase of contrast. Gallbladder and Bile Ducts: No gallstones or pericholecystic fluid. No intrahepatic or extrahepatic bile duct dilatation. Spleen: Normal size. Subcentimeter hypodense lesion, too small to characterize (series 3 image 85). Pancreas: The pancreatic duct is mildly prominent measuring up to 4 mm, unchanged from prior exam. Otherwise, the pancreas is normal. Adrenals: Normal. Kidneys: Several calculi in the left kidney measuring 1-2 mm (series 3 image 105, 106, 108, 113) and 1 in the right kidney (image 130). No hydronephrosis. Heterogeneous cortical enhancement bilaterally. No perinephric stranding or fluid. Gastrointestinal: There is a gastrostomy tube in place. The visualized loops of large and small bowel are unremarkable. There is contrast within the colon Mesentery/Peritoneum/Retroperitoneum: No free intraperitoneal air. No free fluid in the abdomen or pelvis. Pelvis: The bladder is normal. The prostate is enlarged measuring up to 5.3 cm transversely. Abdominal Vasculature: atherosclerotic changes. No abdominal aortic aneurysm. Bones: Sclerotic lesion right pubic body measuring 0.9 cm (series 3 image 208), previously 0.7 cm. Chronic deformity right lateral clavicle. Procedure Note Charles Hare MD - 06/12/2022 PROCEDURE: CT CHEST ABDOMEN PELVIS W CONT, DATE/TIME OF EXAM:06/12/2022 2:26 AM, LOCATION [facility] INDICATION: T17.800A: Aspiration into lower respiratory tract, initial encounter R09.02: Hypoxia ADDITIONAL CLINICAL INFORMATION: Ordering Provider Reason For Exam: hx of J tube? source of infection? aspriation? COMPARISON: CT chest PE with abdomen pelvis with contrast dated 05/30/2022. TECHNIQUE: CT of the chest, abdomen, and pelvis was performed after the uneventful administration of 100 mL of Isovue 370 intravenous contrast according to standard protocol. Findings: Chest: Lower Neck and Axillae: Normal. Lungs: Right lower lung consolidation. No pleural fluid or pneumothorax is present. Heart and Pericardium: The cardiac chambers are normal in size. No pericardial fluid orthickening is present. Mediastinum and Almita: No mediastinal hemorrhage is present. No enlarged lymph nodes arepresent. Thoracic Vasculature: No vascular abnormality is present. Abdomen/pelvis: Liver: Several enhancing lesions, for example 1.1 cm in segment 8 (series 3image 101). 0.6 cm segment 8 (image 34). 1.0 cm segment 7 (image 88). These lesions are more conspicuous than on the 05/30/2022 study and [address] older CT dated 07/01/2019, possibly due to differences in the phase of contrast. Gallbladder and Bile Ducts: No gallstones or pericholecystic fluid. No intrahepatic or extrahepatic bile duct dilatation. Spleen: Normal size. Subcentimeter hypodense lesion, too small to characterize (series 3 image 85). Pancreas: The pancreatic duct is mildly prominent measuring up to 4 mm, unchanged from prior exam. Otherwise, the pancreas is normal. Adrenals: Normal. Kidneys: Several calculi in the left kidney measuring 1-2 mm (series 3 image 105, 106, 108, 113) and 1 in the right kidney (image 130). No hydronephrosis. Heterogeneous cortical enhancement bilaterally. No perinephric strandingor fluid. Gastrointestinal: There is a gastrostomy tube in place. The visualized loops of large and small bowel are unremarkable. There is contrast within the colon Mesentery/Peritoneum/Retroperitoneum: No free intraperitoneal air. No free fluid in the abdomen or pelvis. Pelvis: The bladder is normal. The prostate is enlarged measuring up to 5.3 cm transversely. Abdominal Vasculature: atherosclerotic changes. No abdominal aortic aneurysm. Bones: Sclerotic lesion right pubic body measuring 0.9 cm (series 3 image 208), previously 0.7 cm. Chronic deformity right lateral clavicle. Impression: 1.Right lower lung consolidation compatible with aspiration and/or pneumonia. 2.Several enhancing hepatic lesions measuring up to 1.1 cm. These could represent flash filling hemangiomas or lesions of other etiology. Theseare more conspicuous compared to prior studies, possibly due to differencesin the phase of contrast. Consider further characterization with liver MRIor follow-up to ensure stability. 3.Heterogeneous renal cortical enhancement, possibly reflecting pyelonephritis or a renal parenchymal or vascular process. Several nonobstructing small calculi, left greater than right. > Dictated by Brandee Celestin MD (physician vice president). I, Charles Hare MD have personally reviewed and interpreted this examination/study. > Interpreting Provider: Charles Hare MD on 06/12/2022 9:50 AM Dimas Locke MD CT ORDERABLES * URINALYSIS REFLEX MICROSCOPIC REFLEX CULTURE (06/12/2022 12:27 AM MATERIAL ASSISTANT) Color UA Yellow Straw, Yellow 06/12/2022 12:36 AM [facility] Clarity UA Clear Clear 06/12/2022 12:36 AM [facility] Specific Franklin UA 1.013 1.005 - 1.030 06/12/2022 12:36 AM [facility] pH UA 7.0 5.0 - 8.0 pH 06/12/2022 12:36 AM [facility] Protein UA Negative Negative 06/12/2022 12:36 AM [facility] Glucose UA Negative Negative 06/12/2022 12:36 AM [facility] Ketone UA Negative Negative 06/12/2022 12:36 AM [facility] Bilirubin UA Negative Negative 06/12/2022 12:36 AM [facility] Blood UA Negative Negative 06/12/2022 12:36 AM [facility] Nitrite UA Negative Negative 06/12/2022 12:36 AM [facility] Leukocyte Esterase Negative Negative 06/12/2022 12:36 AM [facility] Urobilinogen UA Negative Negative mg/dL 06/12/2022 12:36 AM [facility] Comment UA Microscopic not indicated. 06/12/2022 12:36 AM [facility] Urine URINE SPECIMEN OBTAINED BY SINGLE CATHETERIZATION OF URINARY BLADDER / Unknown Collection / Unknown 06/12/2022 12:27 AM MATERIAL ASSISTANT 06/12/2022 12:30 AM MATERIAL ASSISTANT Narrative [facility] - 06/12/2022 12:36 AM MATERIAL ASSISTANT Serjio Vilchis MD LAB - URINALYSIS ORD ERABLES Performing Organization Address [facility] Co de Phone Number [facility] [address] [place] [address], [facility] [phone] * SARS-COV-2 (COVID-19) FLU A/B RSV PCR RAPID (06/11/2022 9:22 PM MATERIAL ASSISTANT) COVID-19 PCR Not detected Not detected 06/11/19 10:27 PM MATERIAL ASSISTANT [facility] Influenza A PCR Not detected Not detected 06/11/2022 10:27 PM [facility] Influenza B PCR Not detected Not detected 06/11/2022 10:27 PM [facility] RSV PCR Not detected Not detected 06/11/2022 10:27 PM MATERIAL ASSISTANT [facility] Microbiology SPECIMEN FROM NASOPHARYNGEAL STRUCTURE / Unknown Collection / Unknown 06/11/2022 9:22 PM MATERIAL ASSISTANT 06/11/2022 9:28 PM MATERIAL ASSISTANT Narrative [facility] - 06/11/2022 10:27 PM MATERIAL ASSISTANT This nucleic acid amplification assay has been [...] this EUA assay are available upon request. Serjio Vilchis MD LAB - MICROBIOLOGY O RDERABLES Performing Organization Address [facility]/ZIP Co de Phone Number [facility] [address] [place] [address], [facility] [phone] * (ABNORMAL) CBC W AUTO DIFFERENTIAL (06/11/2022 9:22 PM [facility]) WBC 13.2(H) 3.5 - 10.5 10? 3 /uL 06/11/2022 9:31 PM [facility] RBC 3.77(L) 4.30 - 5.70 10? 6 /uL 06/11/2022 9:31 PM [facility] Hemoglobin 12.0 12.0 - 17.6 g/dL 06/11/2022 9:31 PM [facility] Hematocrit 35.6 35.2 - 51.7 % 06/11/2022 9:31 PM [facility] MCV 94.4 80.7 - 98.3 fL 06/11/2022 9:31 PM [facility] MCH 31.8 26.7 - 34.0 pg 06/11/2022 9:31 PM [facility] MCHC 33.7 30.8 - 35.9 g/dL 06/11/2022 9:31 PM [facility] RDW-SD 44.2 36.0 - 50.0 fL 06/11/2022 9:31 PM [facility] RDW-CV 12.7 11.2 - 14.8 % 06/11/2022 9:31 PM [facility] Platelet Count 167 150 - 400 10? 3 /uL 06/11/2022 9:31 PM [facility] MPV 12.9 9.4 - 12.9 fL 06/11/2022 9:31 PM [facility] nRBC Absolute 0.00 0 10? 3 /uL 06/11/2022 9:31 PM [facility] nRBC Auto 0.0 0 /100 WBC 06/11/2022 9:31 PM [facility] Neutrophils % 70.5(H) 35.0 - 70.0 % 06/11/2022 9:31 PM [facility] Lymphocytes % 18.3(L) 20.0 - 43.0 % 06/11/2022 9:31 PM [facility] Monocytes % 10.5 5.0 - 13.0 % 06/11/2022 9:31 PM [facility] Eosinophils % 0.4 0.0 - 6.0 % 06/11/2022 9:31 PM [facility] Basophil % 0.1 0.0 - 2.0 % 06/11/2022 9:31 PM [facility] Neutrophils Absolute 9.31(H) 1.60 - 7.00 10? 3 /uL 06/11/2022 9:31 PM [facility] Lymphocyte Absolute 2.42 1.10 - 3.90 10? 3 /uL 06/11/2022 9:31 PM [facility] Monocytes Absolute 1.39(H) 0.26 - 1.07 10? 3 /uL 06/11/2022 9:31 PM [facility] Eosinophils Absolute 0.05 0.00 - 0.47 10? 3 /uL 06/11/2022 9:31 PM [facility] Basophils Absolute 0.01 0.00 - 0.08 10? 3 /uL 06/11/2022 9:31 PM [facility] Immature Granulocytes % 0.2 0.0 - 1.0 % 06/11/2022 9:31 PM [facility] Immature Granulocytes Absolute 0.02 06/11/2022 9:31 PM [facility] Blood BLOOD SPECIMEN / Unknown Venipuncture / Unknown 06/11/2022 9:22 PM MATERIAL ASSISTANT 06/11/2022 9:28 PM [facility] Serjio Vilchis MD LAB - HEMATOLOGY ORD ERABLES Performing Organization Address [facility]/State/ZIP Co de Phone Number [facility] [address] [place] [address] [phone] * (ABNORMAL) COMPREHENSIVE METABOLIC PANEL (06/11/2022 9:22 PM MATERIAL ASSISTANT) BUN 20 7 - 26 mg/dL 06/11/2022 9:53 PM [facility] Creatinine 0.92 0.71 - 1.16 mg/dL 06/11/2022 9:53 PM [facility] Sodium 142 136 - 145 mmol/L 06/11/2022 9:53 PM [facility] Potassium 4.6(H) 3.5 - 4.5 mmol/L 06/11/2022 9:53 PM [facility] Chloride 106 98 - 107 mmol/L 06/11/2022 9:53 PM [facility] CO2 27 22 - 29 mmol/L 06/11/2022 9:53 PM [facility] Glucose 93 70 - 115 mg/dL 06/11/2022 9:53 PM [facility] Calcium 9.6 8.4 - 10.2 mg/dL 06/11/2022 9:53 PM [facility] Protein Total 6.3 6.0 - 8.3 g/dL 06/11/2022 9:53 PM [facility] Albumin 2.7(L) 3.4 - 5.0 g/dL 06/11/2022 9:53 PM [facility] Bilirubin Total 0.2 0.2 - 1.2 mg/dL 06/11/2022 9:53 PM [facility] Alkaline Phosphatase 70 40 - 150 U/L 06/11/2022 9:53 PM [facility] ALT 7 5 - 55 U/L 06/11/2022 9:53 PM [facility] AST 14 5 - 34 U/L 06/11/2022 9:53 PM [facility] Anion Gap 14 8 - 18 06/11/2022 9:53 PM [facility] BUN/Creatinine Ratio 22 7 - 23 06/11/2022 9:53 PM [facility] Osmolality Calculated 296 270 - 300 mOsm/kg 06/11/2022 9:53 PM [facility] Albumin/Globulin Ratio 0.8(L) 1.1 - 2.3 06/11/2022 9:53 PM [facility] eGFR by CKD-EPI >90 >=90 mL/min/1.7 3 m2 06/11/2022 9:53 PM [facility] Blood BLOOD SPECIMEN / Unknown Venipuncture / Unknown 06/11/2022 9:22 PM MATERIAL ASSISTANT 06/11/2022 9:28 PM MATERIAL ASSISTANT Serjio Vilchis MD LAB - CHEMISTRY ORDByron MEDEROS [facility] Organization Address City/State/ZIP Co de Phone Number [facility] [address] [place] [address], [facility] [phone] * MAGNESIUM BLOOD (06/11/2022 9:22 PM MATERIAL ASSISTANT) Magnesium 1.9 1.6 - 2.6 mg/dL 06/11/2022 9:53 PM MATERIAL ASSISTANT [facility] Blood BLOOD SPECIMEN / Unknown Venipuncture / Unknown 06/11/2022 9:22 PM MATERIAL ASSISTANT 06/11/2022 9:28 PM MATERIAL ASSISTANT Serjio Vilchis MD LAB - CHEMISTRY MARSHAL MEDEROS [facility] [address] [place] [address], [facility] [phone] * PHOSPHORUS BLOOD (06/11/2022 9:22 PM MATERIAL ASSISTANT) Phosphorus 2.9 2.8 - 5.1 mg/dL 06/11/2022 9:53 PM MATERIAL ASSISTANT [facility] Blood BLOOD SPECIMEN / Unknown Venipuncture / Unknown 06/11/2022 9:22 PM MATERIAL ASSISTANT 06/11/2022 9:28 PM MATERIAL ASSISTANT Serjio Vilchis MD LAB - CHEMISTRY MARSHAL MEDEROS [facility] [address] [place] [address], [place] [phone] * PROCALCITONIN LEVEL (06/11/2022 9:22 PM MATERIAL ASSISTANT) PROCALCITONIN 0.10 <=0.10 ng/mL 06/11/2022 10:38 PM MATERIAL ASSISTANT [facility] Blood BLOOD SPECIMEN / Unknown Venipuncture / Unknown 06/11/2022 9:22 PM MATERIAL ASSISTANT 06/11/2022 9:27 PM MATERIAL ASSISTANT Narrative [facility] - 06/11/2022 10:38 PM MATERIAL ASSISTANT The change in procalcitonin (PCT) concentration over [...] Change in Procalcitonin Calculator is available at [email or web address] ?? If clinical picture has not improved and PCT remains high, reevaluate and consider treatment failure or other causes. Serjio Vilchis MD LAB - CHEMISTRY MARSHAL MEDEROS [facility] Organization Address City/State/ZIP Co de Phone Number [address] [address], [facility] [phone] * XR CHEST 1VW PORTABLE (06/11/2022 8:42 PM MATERIAL ASSISTANT) Anatomical Region Laterality Modality Chest Radiographic Cynthia ging 06/11/2022 9:51 PM MATERIAL ASSISTANT Impressions 06/12/2022 12:28 PM MATERIAL ASSISTANT IMPRESSION: No pulmonary consolidation. Report dictated by Carrie Ashby MD (physician vice president). I, Charles Hare MD have personally reviewed and interpreted this examination/study. > Interpreting Provider: Charles Hare MD on 06/12/2022 12:28 PM Narrative 06/12/2022 12:28 PM MATERIAL ASSISTANT PROCEDURE: ??XR CHEST 1VW PORTABLE, DATE/TIME OF EXAM: ??06/11/2022 8:42 PM, LOCATION ??[facility] INDICATION: A41.9: Sepsis, due to unspecified organism, unspecified whether acute organ dysfunction present ([facility]) ADDITIONAL CLINICAL INFORMATION: Ordering Provider Reason For Exam: ??eval pna COMPARISON: Chest radiograph from 05/11/2022. COMPARISON: No prior study is available for comparison. FINDINGS: A small amount of high attenuation material projects over the thoracic inlet at the T1-T2 level and could represent radiographic contrast or metallic fragments. This was not present previously. This could represent residual contrast from a swallowing function study dated 06/02/2022. There is no pulmonary consolidation, pleural effusion, or pneumothorax. The heart size is normal. Spurs of heterotopic ossification arising from the inferior aspect of the right clavicle in the coracoclavicular region. Procedure Note Charles Hare MD - 06/12/2022 PROCEDURE: XR CHEST 1VW PORTABLE, DATE/TIME OF EXAM: 06/11/2022 8:42PM, LOCATION [facility] INDICATION: A41.9: Sepsis, due to unspecified organism, unspecified whether acuteorgan dysfunction present ([facility]) ADDITIONAL CLINICAL INFORMATION: Ordering Provider Reason For Exam: eval pna COMPARISON: Chest radiograph from 05/11/2022. COMPARISON: No prior study is available for comparison. FINDINGS: A small amount of high attenuation material projects over the thoracic inlet at the T1-T2 level and could represent radiographic contrast or metallic fragments. This was not present previously. This couldrepresent residual contrast from a swallowing function study dated 06/02/2022. There is no pulmonary consolidation, pleural effusion, or pneumothorax. The heart size is normal. Spurs of heterotopic ossification arising from the inferior aspect of the right clavicle in the coracoclavicularregion. IMPRESSION: No pulmonary consolidation. Report dictated by Carrie Ashby MD (physician vice president). I, Charles Hare MD have personally reviewed and interpreted this examination/study. > Interpreting Provider: Charles Hare MD on 06/12/2022 12:28 PM Serjio Vilchis MD DIAGNOSTIC IMAGING O RDERABLES documented in this encounter Visit Diagnoses Diagnosis Altered mental status, unspecified altered mental status type- Primary Sepsis, due to unspecified organism, unspecified whether acute organ dysfunction present (HCC) Aspiration into lower respiratory tract, initial encounter Hypoxia Hypoxemia Hypoxia Hypoxemia Aspiration into lower respiratory tract, initial encounter Alzheimer's disease with early onset (CMS/HCC) Alzheimer's disease History of CVA (cerebrovascular accident) Transient ischemic attack (TIA), and cerebral infarction without residual deficits Hypertension Unspecified essential hypertension Epilepsy, unspecified, not intractable, without status epilepticus (HCC) PAD (peripheral artery disease) (HCC) Unspecified disorders of arteries and arterioles Aspiration pneumonitis (HCC) Pneumonitis due to inhalation of food or vomitus documented in this encounter Administered Medications Inactive Administered Medications - up to 3 most recent administrations Medication Order MAR Action Action Date Dose Rate Site 0.9% NaCl injection 1-10 mL 1-10 mL, Intracatheter, PRN, Other, peripheral line flush, Starting on 06/12/22 at 0202, Until 06/15/22 at 1758, Flush peripheral IV catheter with 1-10 mL of normal saline before and after medications and prn to clear blood from the line or to verify patency. 0.9% NaCl injection 3 mL 3 mL, Intracatheter, EVERY 8 HOURS, First dose on 06/12/22 at 0600, Until Discontinued, Flush peripheral IV catheter with 3 mL of normal saline every 8 hours. $ Given 06/15/2022 4:00 AM MATERIAL ASSISTANT 3 mL $ Given 06/14/2022 10:40 PM MATERIAL ASSISTANT 3 mL $ Given 06/14/2022 1:52 PM MATERIAL ASSISTANT 3 mL aspirin chew tablet 81 mg 81 mg, Enteral Tube, DAILY, First dose on 06/12/22 at 0900, Until Discontinued $ Given 06/15/2022 10:22 AM MATERIAL ASSISTANT 81 mg G Tu be $ Given 06/14/2022 9:57 AM MATERIAL ASSISTANT 81 mg G Tube $ Given 06/13/2022 8:30 AM MATERIAL ASSISTANT 81 mg J Tube atorvastatin (Lipitor) tablet 40 mg 40 mg, Enteral Tube, DAILY, First dose on 06/12/22 at 0900, Until Discontinued $ Given 06/15/2022 10:22 AM MATERIAL ASSISTANT 40 mg G Tu be $ Given 06/14/2022 9:57 AM MATERIAL ASSISTANT 40 mg G Tube $ Given 06/13/2022 8:30 AM MATERIAL ASSISTANT 40 mg J Tube azithromycin (Zithromax) 500 mg in 0.9% NaCl IV 250 mL IVPB 500 mg, at 250 mL/hr, Intravenous, EVERY 24 HOURS, 5 doses, First dose on Tue06/12/22 at 0215, Last dose on Tue06/16/22 at 0215, Indication for anti-infective therapy: Suspected infection, Site of anti-infective therapy: Lower Respiratory $ New Bag/Syringe 06/12/2022 2:34 AM MATERIAL ASSISTANT 500 mg 250 mL/hr cefTRIAXone (Rocephin) 2,000 mg in 0.9% NaCl IV 50 mL IVPB 2,000 mg (2 g), at 100 mL/hr, Intravenous, EVERY 24 HOURS, First dose on 06/12/22 at 0215, Until Discontinued, Ceftriaxone can cause precipitation when administered with calcium-containing fluids, including LR. Flush lines with a compatible fluid, such as D5W or NS before and after ceftriaxone dose. Admin through separate lumens is acceptable. , Indication for anti-infective therapy: Suspected infection, Site of anti-infective therapy: Lower Respiratory $ New Bag/Syringe 06/12/2022 2:31 AM MATERIAL ASSISTANT 2,000 mg 100 mL/hr cloBAZam (Onfi) tablet 20 mg 20 mg, Enteral Tube, 2 TIMES DAILY, First dose on 06/12/22 at 0900, Until Discontinued $ Given 06/15/2022 10:22 AM MATERIAL ASSISTANT 20 mg G Tube $ Given 06/14/2022 10:39 PM MATERIAL ASSISTANT 20 mg G Tube $ Given 06/14/2022 9:56 AM MATERIAL ASSISTANT 20 mg G Tube divalproex sprinkle (Depakote Sprinkle) capsule 500 mg 500 mg, Enteral Tube, EVERY 6 HOURS (03,09,15,21), First dose on 06/12/22 at 0900, Until Discontinued, Do not crush or chew sprinkle beads. $ Given 06/15/2022 3:13 PM MATERIAL ASSISTANT 500 mg G Tube $ Given 06/15/2022 10:21 AM MATERIAL ASSISTANT 500 mg G Tube $ Given 06/15/2022 3:59 AM MATERIAL ASSISTANT 500 mg G Tube enoxaparin (Lovenox) injection 40 mg 40 mg, Subcutaneous, DAILY, First dose on 06/12/22 at 0900, Until Discontinued, (for prefilled syringes) do not expel air bubble from the syringe prior to the injection Remind Patient to not rub injection site. Could cause hematoma. $ Given 06/15/2022 10:23 AM MATERIAL ASSISTANT 40 mg Left Arm $ Given 06/14/2022 9:56 AM MATERIAL ASSISTANT 40 mg Ab dominal Tissue $ Given 06/13/2022 8:30 AM MATERIAL ASSISTANT 40 mg Ab dominal Tissue folic acid (Folvite) tablet 1 mg 1 mg, Enteral Tube, DAILY, First dose on 06/12/22 at 0900, Until Discontinued $ Given 06/15/2022 10:23 AM MATERIAL ASSISTANT 1 mg G Tu be $ Given 06/14/2022 9:56 AM MATERIAL ASSISTANT 1 mg G Tube $ Given 06/13/2022 8:30 AM MATERIAL ASSISTANT 1 mg J Tube iopamidol (Isovue 370) 76 % contrast Intravenous, CONTRAST ONCE, Starting on 06/12/22 at 0208, Until 06/14/22 at 0207 $ Given - Contrast 06/12/2022 2:13 AM MATERIAL ASSISTANT 100 mL lacosamide (Vimpat) tablet 200 mg 200 mg, Enteral Tube, 2 TIMES DAILY, First dose on 06/12/22 at 0900, Until Discontinued $ Given 06/15/2022 10:21 AM MATERIAL ASSISTANT 200 mg G Tube $ Given 06/14/2022 10:39 PM MATERIAL ASSISTANT 200 mg G Tube $ Given 06/14/2022 9:57 AM MATERIAL ASSISTANT 200 mg G Tube lactated ringers IV bolus 1,000 mL, at 983.61 mL/hr, Administer over 61 Minutes, ONCE, 1 dose, On Tue06/11/22 at 2330 $ Bolus New Bag 06/11/2022 11:20 PM MATERIAL ASSISTANT 1,000 mL 983.61 mL/hr levETIRAcetam (Keppra) tablet 2,000 mg 2,000 mg, Enteral Tube, 2 TIMES DAILY, First dose on 06/12/22 at 0900, Until Discontinued, Do not crush or chew because of TASTE only. $ Given 06/15/2022 10:22 AM MATERIAL ASSISTANT 2,000 mg G Tube $ Given 06/14/2022 10:39 PM MATERIAL ASSISTANT 2,000 mg G Tube $ Given 06/14/2022 9:57 AM MATERIAL ASSISTANT 2,000 mg G Tube piperacillin - tazobactam (Zosyn) 3.375 g in 0.9% NaCl IV 55 mL IVPB 3.375 g, at 110 mL/hr, Intravenous, ONCE, 1 dose, On 06/12/22 at 0800, Infuse only initial dose of piperacillin-tazobactam over 30 min. Subsequent doses start 6 hours after initial dose and infused over 4 hours., Indication for anti-infective therapy: Suspected infection, Site of anti-infective therapy: Lower Respiratory $ New Bag/Syringe 06/12/2022 8:29 AM MATERIAL ASSISTANT 3.375 g 110 mL/hr piperacillin - tazobactam (Zosyn) 3.375 g in 0.9% NaCl IV 55 mL IVPB 3.375 g, at 13.75 mL/hr, Intravenous, EVERY 8 HOURS, First dose on 06/12/22 at 1400, Until Discontinued, Indication for anti-infective therapy: Suspected infection, Site of anti-infective therapy: Lower Respiratory $ New Bag/Syringe 06/13/2022 5:45 AM MATERIAL ASSISTANT 3.375 g 13.75 mL/hr $ New Bag/Syringe 06/12/2022 9:24 PM MATERIAL ASSISTANT 3.375 g 13.75 mL/hr $ New Bag/Syringe 06/12/2022 2:00 PM MATERIAL ASSISTANT 3.375 g 13.75 mL/hr polyethylene glycol 3350 (Miralax) packet 17 g 17 g, Enteral Tube, DAILY, First dose (after last modification) on Tue06/13/22 at 0900, Until Discontinued, Mix in 8 ounces of water, juice, soda, coffee or tea prior to administration $ Given 06/15/2022 10:23 AM MATERIAL ASSISTANT 17 g G Tube $ Given 06/14/2022 9:55 AM MATERIAL ASSISTANT 17 g G Tube $ Given 06/13/2022 2:33 PM MATERIAL ASSISTANT 17 g J Tube sodium - potassium phosphates (K Phos Neutral) tablet 2 tablet 2 tablet, Enteral Tube, 2 TIMES DAILY, 2 doses, First dose (after last modification) on Tue06/14/22 at 0900, Last dose on Tue06/14/22 at 2100, Contains Phos 8 mmol, K+ 1.1 mEq, Na 13 mEq per tablet $ Given 06/14/2022 10:40 PM MATERIAL ASSISTANT 2 tablets G Tube $ Given 06/14/2022 9:56 AM MATERIAL ASSISTANT 2 tablets G Tube sodium - potassium phosphates (K Phos Neutral) tablet 2 tablet 2 tablet, Enteral Tube, 2 TIMES DAILY, 2 doses, First dose on Tue06/15/22 at 0900, Last dose on Tue06/15/22 at 2100, Contains Phos 8 mmol, K+ 1.1 mEq, Na 13 mEq per tablet $ Given 06/15/2022 10:22 AM MATERIAL ASSISTANT 2 tablets G Tu be tamsulosin (Flomax) capsule 0.4 mg 0.4 mg, Oral, DAILY, First dose on Tue06/12/22 at 0900, Until Discontinued, At the same time every day after a meal. Do not crush, chew $ Given 06/15/2022 10:22 AM MATERIAL ASSISTANT 0.4 mg $ Given 06/14/2022 9:56 AM MATERIAL ASSISTANT 0.4 mg $ Given 06/13/2022 8:30 AM MATERIAL ASSISTANT 0.4 mg thiamine (Vitamin B-1) tablet 100 mg 100 mg, Enteral Tube, DAILY, First dose on Tue06/12/22 at 0900, Until Discontinued $ Given 06/15/2022 10:22 AM MATERIAL ASSISTANT 100 mg G Tu be $ Given 06/14/2022 9:57 AM MATERIAL ASSISTANT 100 mg G Tube $ Given 06/13/2022 8:31 AM MATERIAL ASSISTANT 100 mg J Tube vancomycin (Vancocin) 1,250 mg in 250 mL NaCl IVPB Premix 1,250 mg, at 200 mL/hr, Intravenous, EVERY 8 HOURS, First dose on Tue06/12/22 at 1600, Until Discontinued, Indication for anti-infective therapy: Suspected infection, Site of anti-infective therapy: Lower Respiratory $ New Bag/Syringe 06/13/2022 12:26 AM MATERIAL ASSISTANT 1,250 mg 200 mL/hr $ New Bag/Syringe 06/12/2022 6:51 PM MATERIAL ASSISTANT 1,250 mg 200 mL /hr vancomycin (Vancocin) 1,500 mg in 500 mL NaCl IVPB Premix 1,500 mg, at 333.33 mL/hr, Intravenous, ONCE, 1 dose, On Tue06/12/22 at 0800, Indication for anti-infective therapy: Suspected infection, Site of anti-infective therapy: Lower Respiratory $ New Bag/Syringe 06/12/2022 8:44 AM MATERIAL ASSISTANT 1,500 mg 333.33 mL/hr documented in this encounter Active and Recently Administered Medications Times are shown in MATERIAL ASSISTANT. Scheduled Medication Order 06/13/2022 06/14/2022 06/15/2022 0.9% NaCl injection 3 mL(Linked Group 1) 3 mL, Intracatheter, EVERY 8 HOURS, First dose on 06/12/22 at 0600, Until Discontinued, Flush peripheral IV catheter with 3 mL of normal saline every 8 hours. 0544 ($ Given - Provider: Mara Lloyd RN)1433 ($ Given - Provider: Mahogany Santa RN)2140 ($ Given - Provider: Jesse Omer RN) 0547 ($ Given - Provider: Jesse Omer RN)1352 ($ Given - Provider: Svetlana Charles)2240 ($ Given - Provider: Jesse Omer RN) 0400 ($ Given - Provider: Jesse Omer RN)1338 (Not Administered - Provider: Sumi Sanchez RN - Reason: Loss of Access) aspirin chew tablet 81 mg 81 mg, Enteral Tube, DAILY, First dose on 06/12/22 at 0900, Until Discontinued 0830 ($ Given - Provider: Mahogany Santa RN) 0957 ($ Given - Provider: Svetlana Charles) 1022 ($ Given - Provider: Sumi Sanchez RN) atorvastatin (Lipitor) tablet 40 mg 40 mg, Enteral Tube, DAILY, First dose on 06/12/22 at 0900, Until Discontinued 0830 ($ Given - Provider: Mahogany Santa RN) 0957 ($ Given - Provider: Svetlana Charles) 1022 ($ Given - Provider: Sumi Sanchez RN) cloBAZam (Onfi) tablet 20 mg 20 mg, Enteral Tube, 2 TIMES DAILY, First dose on 06/12/22 at 0900, Until Discontinued 0830 ($ Given - Provider: Mahogany Santa RN)2141 ($ Given - Provider: Jesse Omer RN) 0956 ($ Given - Provider: Svetlana Charles)2239 ($ Given - Provider: Jesse Omer RN) 1022 ($ Given - Provider: Sumi Sanchez RN) divalproex sprinkle (Depakote Sprinkle) capsule 500 mg 500 mg, Enteral Tube, EVERY 6 HOURS (03,09,15,21), First dose on 06/12/22 at 0900, Until Discontinued, Do not crush or chew sprinkle beads. 0251 ($ Given - Provider: Mara Lloyd RN)0830 ($ Given - Provider: Mahogany Santa RN)1433 ($ Given - Provider: Mahogany Santa RN)2146 ($ Given - Provider: Jesse Omer, ALFRED) 0347 ($ Given - Provider: Jesse Omer RN)0957 ($ Given - Provider: Svetlana Charles)1541 ($ Given - Provider: Svetlana Charles)2239 ($ Given - Provider: Jesse Omer RN) 0359 ($ Given - Provider: Jesse Omer RN)1021 ($ Given - Provider: Sumi Sanchez RN)1513 ($ Given - Provider: Sumi Sanchez RN) enoxaparin (Lovenox) injection 40 mg 40 mg, Subcutaneous, DAILY, First dose on 06/12/22 at 0900, Until Discontinued, (for prefilled syringes) do not expel air bubble from the syringe prior to the injection Remind Patient to not rub injection site. Could cause hematoma. 0830 ($ Given - Provider: Mahogany Santa RN) 0956 ($ Given - Provider: Svetlana Charles) 1023 ($ Given - Provider: Sumi Sanchez RN) folic acid (Folvite) tablet 1 mg 1 mg, Enteral Tube, DAILY, First dose on 06/12/22 at 0900, Until Discontinued 0830 ($ Given - Provider: Mahogany Santa RN) 0956 ($ Given - Provider: Svetlana Charles) 1023 ($ Given - Provider: Sumi Sanchez RN) lacosamide (Vimpat) tablet 200 mg 200 mg, Enteral Tube, 2 TIMES DAILY, First dose on 06/12/22 at 0900, Until Discontinued 0830 ($ Given - Provider: Mahogany Santa RN)2146 ($ Given - Provider: Jesse Omer RN) 0957 ($ Given - Provider: Svetlana Charles)2239 ($ Given - Provider: Jesse Omer RN) 1021 ($ Given - Provider: Sumi Sanchez, ALFRED) levETIRAcetam (Keppra) tablet 2,000 mg 2,000 mg, Enteral Tube, 2 TIMES DAILY, First dose on Tue06/12/22 at 0900, Until Discontinued, Do not crush or chew because of TASTE only. 0830 ($ Given - Provider: Mahogany Santa RN)2140 ($ Given - Provider: Jesse Omer, ALFRED) 0957 ($ Given - Provider: Svetlana Charles)2239 ($ Given - Provider: Jesse Omer, ALFRED) 1022 ($ Given - Provider: Sumi Sanchez, ALFRED) piperacillin - tazobactam (Zosyn) 3.375 g in 0.9% NaCl IV 55 mL IVPB (CANCELED) 3.375 g, at 13.75 mL/hr, Intravenous, EVERY 8 HOURS, First dose on Tue06/12/22 at 1400, Until Discontinued, Indication for anti-infective therapy: Suspected infection, Site of anti-infective therapy: Lower Respiratory 0018 (Stopped - Provider: Mara Lloyd RN)0545 ($ New Bag/Syringe - Provider: Mara Lloyd RN)0945 (Stopped - Provider: Mahogany Santa RN) polyethylene glycol 3350 (Miralax) packet 17 g 17 g, Enteral Tube, DAILY, First dose (after last modification) on Tue06/13/22 at 0900, Until Discontinued, Mix in 8 ounces of water, juice, soda, coffee or tea prior to administration 1433 ($ Given - Provider: Mahogany Santa RN) 0955 ($ Given - Provider: Svetlana Charles) 1023 ($ Given - Provider: Sumi Sanchez, ALFRED) sodium - potassium phosphates (K Phos Neutral) tablet 2 tablet (COMPLETED) 2 tablet, Enteral Tube, 2 TIMES DAILY, 2 doses, First dose (after last modification) on Tue06/14/22 at 0900, Last dose on Tue06/14/22 at 2100, Contains Phos 8 mmol, K+ 1.1 mEq, Na 13 mEq per tablet 0956 ($ Given - Provider: Svetlana Charles)2240 ($ Given - Provider: Jesse Omer RN) sodium - potassium phosphates (K Phos Neutral) tablet 2 tablet 2 tablet, Enteral Tube, 2 TIMES DAILY, 2 doses, First dose on Tue06/15/22 at 0900, Last dose on Tue06/15/22 at 2100, Contains Phos 8 mmol, K+ 1.1 mEq, Na 13 mEq per tablet 1022 ($ Given - Provider: Sumi Sanchez, ALFRED) tamsulosin (Flomax) capsule 0.4 mg 0.4 mg, Oral, DAILY, First dose on Tue06/12/22 at 0900, Until Discontinued, At the same time every day after a meal. Do not crush, chew 0830 ($ Given - Provider: Mahogany Santa RN) 0956 ($ Given - Provider: Svetlana Charles) 1022 ($ Given - Provider: Sumi Sanchez, ALFRED) thiamine (Vitamin B-1) tablet 100 mg 100 mg, Enteral Tube, DAILY, First dose on Tue06/12/22 at 0900, Until Discontinued 0831 ($ Given - Provider: Mahogany Santa RN) 0957 ($ Given - Provider: Svetlana Charles) 1022 ($ Given - Provider: Sumi Sanchez, ALFRED) vancomycin (Vancocin) 1,250 mg in 250 mL NaCl IVPB Premix (CANCELED)(Linked Group 2) 1,250 mg, at 200 mL/hr, Intravenous, EVERY 8 HOURS, First dose on Tue06/12/22 at 1600, Until Discontinued, Indication for anti-infective therapy: Suspected infection, Site of anti-infective therapy: Lower Respiratory 0026 ($ New Bag/Syringe - Provider: Mara Lloyd RN)0159 (Stopped - Provider: Mara Lloyd RN)1012 (Not Administered - Provider: Mahogany Santa RN - Reason: Discontinued by physician) PRN Medication Order 06/13/2022 06/14/2022 06/15/2022 0.9% NaCl injection 1-10 mL(Linked Group 1) 1-10 mL, Intracatheter, PRN, Other, peripheral line flush, Starting on Tue06/12/22 at 0202, Until Tue06/15/22 at 1758, Flush peripheral IV catheter with 1-10 mL of normal saline before and after medications and prn to clear blood from the line or to verify patency. acetaminophen (Tylenol) tablet 500 mg 500 mg, Enteral Tube, EVERY 6 HOURS PRN, Moderate Pain, Mild Pain, Starting on 06/12/22 at 0323, Until Tue06/15/22 at 1758, Patient preference for lesser PRN pain meds [...] TIMES DAILY PRN, Dry Eyes, Starting on 06/12/22 at 0323, Until Tue06/15/22 at 1758 bisacodyl (Dulcolax) suppository 10 mg 10 mg, Rectal, DAILY PRN, Constipation, Starting on 06/12/22 at 0324, Until Tue06/15/22 at 1758 Linked Groups Order Group 1: SALINE LOCK, INSERT AND MAINTAIN (CANCELED) Routine, CONTINUOUS, Starting on Tue06/12/22 at 0215, Until Specified, New collection, Task Completed: Yes And 0.9% NaCl injection 3 mLJump to med 3 mL, Intracatheter, EVERY 8 HOURS, First dose on Tue06/12/22 at 0600, Until Discontinued, Flush peripheral IV catheter with 3 mL of normal saline every 8 hours. And 0.9% NaCl injection 1-10 mLJump to med 1-10 mL, Intracatheter, PRN, Other, peripheral line flush, Starting on Tue06/12/22 at 0202, Until Tue06/15/22 at 1758, Flush peripheral IV catheter with 1-10 mL of normal saline before and after medications and prn to clear blood from the line or to verify patency. Group 2: vancomycin (Vancocin) 1,500 mg in 500 mL NaCl IVPB Premix (COMPLETED) 1,500 mg, at 333.33 mL/hr, Intravenous, ONCE, 1 dose, On 06/12/22 at 0800, Indication for anti-infective therapy: Suspected infection, Site of anti- infective therapy: Lower Respiratory Followed by vancomycin (Vancocin) 1,250 mg in 250 mL NaCl IVPB Premix (CANCELED)Jump to med 1,250 mg, at 200 mL/hr, Intravenous, EVERY 8 HOURS, First dose on 06/12/22 at 1600, Until Discontinued, Indication for anti-infective therapy: Suspected infection, Site of anti-infective therapy: Lower Respiratory 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 05/31/2022 05/31/2022 06/29/19 7:19 AM MATERIAL ASSISTANT COVID-19 Under Investigation 06/11/2022 06/11/2022 06/11/2022 10:27 PM MATERIAL ASSISTANT documented as of this encounter Care Teams Steel Manager Relationship Specialty Start Date End Date Joyce Luevano, DIRECTOR CONSUMER-LEARNING SERVICES COORDINATOR [address] [place] [address] PCP - General 03/08/22 11/17/23 Elizabeth Sullivan, RN Gas Meter Installer 10/14/17 documented as of this encounter
--- OUTSIDE RECORDS SUMMARY | 2024-06-08 05:37 | XMS_ITS | Encounter Summary ---
Author Organization [facility] Health Address [address] [place] [address] Care Team Providers Care Immigration Investigator Name Role Phone Eliazbeth Sullivan RN Unavailable [phone] Joyce Luevano [employer] Primary Care Provider [phone] Encounter Details Date Type Department Care Team (Late st Contact Info) Description 06/21/2022 Orders Only [facility] [address] [facility], [facility] [place] [address] Yana Rm APRN-CNP [address] [place] [address] Social History Tobacco Use Types [...] as of this encounter Progress Notes * Yana Rm APRN-CNP - 06/21/2022 1:59 PM CST NH reported two seizures today, impaired awareness with facial twitching lasting few minutes. Patient back to baseline. Ordered valproic acid level, CBC, CMP Also prescribed PRN Nayzilam. NH instructed to report any seizure events. ELANA Cullen CAL STENOGRAPHER documented in this encounter Plan of Treatment Upcoming Encounters Date Type Department Care Team (Late st Contact Info) Description 12/05/2024 1:00 PM CDT Office Visit [facility] - Neurology [address] [place] [address], [facility] [place] [id number] Sean Raymundo, DO [address] [place] [address] [place] [id number] documented as of this encounter Visit Diagnoses Not on file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 05/31/2022 05/31/2022 06/29/19 7:19 AM MEDICAL STENOGRAPHER documented as of this encounter Care Teams Immigration Investigator Relationship Specialty Start Date End Date Joyce Luevano, [employer] [address] [place] [id number] PCP - General 03/08/22 11/17/23 Elizabeth Sullivan, RN Soil Tester 10/14/17 documented as of this encounter
--- OUTSIDE RECORDS SUMMARY | 2024-06-08 05:38 | XMS_ITS | Encounter Summary ---
Author Organization [facility] Health Address [address] [facility] [place] [address] Care Team Providers Care Veterinary Medicine Teacher Name Role Phone Elizabeth Sullivan RN Unavailable [phone] Joyce Luevano PROFESSIONAL ORGANIZER-RESTAURANT EXPEDITOR Primary Care Provider [phone] Reason for Visit * Reason Onset Date Comments Order 05/25/2022 Encounter Details Date Type Department Care Team (Late st Contact Info) Description 05/25/2022 Telephone [facility] [address] [place] [address] Yana Rm APRN-CNP [address] [place] [address] Order Social History Tobacco Use [...] the money to buy more. Never true 05/13/20 22 Within the past 12 months, t he food you bought just didn't last and you didn't have money to get more. Never true 05/13/2022 Sex and Gender Information Value Date Recorded Sex Assigned at Not on file Gender Identity Not on file Sexual Orientation Not on file documented as of this encounter Functional Status Functional Status Response Date of Assess ment Is person deaf or have serious hearing difficult y? No 03/10/2022 Is person blind or have serious difficulty seein g? No 03/10/2022 Does person have serious dif ficulty walking/climbing stairs? Yes 03/10/2022 Does person have difficulty dressing/bathing? Ye s 03/10/2022 Does person have difficulty doing errands alone? Yes 03/10/2022 Cognitive Status Response Date of Assessm ent Does person have difficulty concentrating/remembering/making decisions? Yes 03/10/2022 documented as of this encounter Miscellaneous Notes * Telephone Encounter - Michaela Bass RN - 05/25/2022 8:24 AM CST Re-faxed lab orders again to [phone] along with AVS from 05/14/2022. Asked facility to draw labs angella if they were not drawn yesterday and faxed to our office. ICE CAR OPERATOR * Telephone Encounter - Michaela Bass RN - 05/25/2022 8:22 AM CST ----- Message from ELANA Cullen sent at 05/24/2022 12:30 PM SERVICE CAR OPERATOR ----- Regarding: ignore other messages Navarro Farrar for all the messages, you can ignore the other ones on this patient. So I spoke to his Nursing facility, [facility]. They didn't have his medication list correct from when he left the hospital. Can we fax them the after visit summary that is scanned in under Media tab from 05/14/2022. Also spoke to them about the labs, they didn't have the orders (I know you spoke to Alma SIMON last wekabout this). So the nurse took verbal ones from me, but could we also fax over orders again . Keppra level, lacosamide level, valproic acid level (if you need me to place new orders let me know). Appreciate all the help! -Yana ICE CAR OPERATOR documented in this encounter Plan of Treatment Upcoming Encounters Date Type Department Care Team (Late st Contact Info) Description 12/05/2024 1:00 PM CDT Office Visit [facility] - Neurology [address] [place] [address], [facility] [place] [address] Sean Raymundo, [address] [place] [address] documented as of this encounter Visit Diagnoses Not on filedocumented in this encounter Care Teams Veterinary Medicine Teacher Relationship Specialty Start Date End Date Joyce Luevano, PROFESSIONAL ORGANIZER-RESTAURANT EXPEDITOR [address] [place] [address] PCP - General 03/08/22 11/17/23 Elizabeth Sullivan, ALFRED Last Marker 10/14/17 documented as of this encounter
--- OUTSIDE RECORDS SUMMARY | 2024-06-08 05:38 | XMS_ITS | Encounter Summary ---
Author Organization [facility] Health Address [address] [facility] [place] [address] Care Team Providers Care Gis Engineer Name Role Phone Elizabeth Sullivan RN Unavailable [phone] Joyce Luevano HOSPITAL WARD CLERK-ATHLETIC AGENT Primary Care Provider [phone] Reason for Visit * Reason Onset Date Comments Order 05/27/2022 Encounter Details Date Type Department Care Team (Late st Contact Info) Description 05/27/2022 Telephone [facility] [address] [place] [address] Yana Rm APRN-CNP [address] [place] [address] Order Social History Tobacco Use [...] Telephone Encounter - Michaela Bass RN - 05/27/2022 9:25 AM CST Spoke with Romeo at [facility] and he is stating that the divalproex DR that was sent over to the pharmacy today is not covered by insurance. I attempted a PA and it was rejected as a PA is not required. Called the pharmacy and they say that it is covered they state that the sprinkles are not covered. Asked pharmacy to fill and send the oral divalproex DR 500mg tabs to the facility. They will fill. Called and spoke with patient's nurse Cyndy and she states that they have not received the new order. Gave her a verbal order and faxed the new script to the facility at [phone]. Asked that they start the divalproex DR 500mg two tablets bid as soon as they receive the medication from the pharmacy. Cyndy SIMON v/u. Will inform BOUCHRA Rm. LE KNOCKER * Telephone Encounter - Michaela Bass RN - 05/27/2022 8:57 AM CST Images from the original note were not included. Yana Rm APRN-Michaela Snow, RN Hey Can you let facility know that I sent Gilmar DR 500mg, 2 pills twice daily for oral intake (I believe he can take oral now) Since we can't get the sprinkles. Thank you! -Yana LE KNOCKER documented in this encounter Plan of Treatment Upcoming Encounters Date Type Department Care Team (Late st Contact Info) Description 12/05/2024 1:00 PM CDT Office Visit [facility] - Neurology [address] [place] [address], [facility] [place] [address] Sean Raymundo, [address] [place] [address] documented as of this encounter Visit Diagnoses Not on file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 05/31/2022 05/31/2022 06/29/19 7:19 AM CATTLE KNOCKER COVID-19 Under Investigation 06/11/2022 06/11/2022 06/11/2022 10:27 PM CATTLE KNOCKER documented as of this encounter Care Teams Gis Engineer Relationship Specialty Start Date End Date Joyce Luevano APRN-BELINDA [address] [place] [address] PCP - General 03/08/22 11/17/23 Elizabeth Sullivan, ALFRED Mold Closer Helper 10/14/17 documented as of this encounter
--- OUTSIDE RECORDS SUMMARY | 2024-06-08 05:38 | XMS_ITS | Encounter Summary ---
Author Organization [facility] Health Address [address] [facility] [address] Care Team Providers Care Adolescent Specialist Name Role Phone Elizabeth Sullivan RN Unavailable [phone] Joyce Luevano SHOP SUPERINTENDENT-DRAPERY ESTIMATOR Primary Care Provider [phone] Reason for Visit * Reason Onset Date Comments Order 05/11/2022 Encounter Details Date Type Department Care Team (Late st Contact Info) Description 05/11/2022 Telephone [facility] [address] [place] [address] Yana Rm APRN-CNP [address] [place] [address] Order Social History Tobacco Use [...] the money to buy more. Never true 03/10/20 22 Within the past 12 months, t he food you bought just didn't last and you didn't have money to get more. Never true 03/10/2022 Sex and Gender Information Value Date Recorded [...] Telephone Encounter - Michaela Bass RN - 05/11/2022 11:26 AM CST Spoke with Alma SIMON at facility and she states that the fax machine was broken last week when I faxedthe orders over. Re-faxed orders and asked her to draw these when the patient is discharged from the hospital. Faxed to [phone]. GER MEDICARE MARKETING * Telephone Encounter - Michaela Bass RN - 05/11/2022 11:26 AM CST ----- Message from ELANA Cullen sent at 05/11/2022 11:08 AM MANAGER MEDICARE MARKETING ----- Hey the labs they sent over are from March. Did they draw the ones I ordered last week? Do we have those results? Thank you [employer] MEDICARE MARKETING documented in this encounter Plan of Treatment Upcoming Encounters Date Type Department Care Team (Late st Contact Info) Description 12/05/2024 1:00 PM CDT Office Visit [facility] [address] [place], [place] [phone] Sean Raymundo, DO [address] [place] [phone] documented as of this encounter Visit Diagnoses Not on filedocumented in this encounter Additional Health Concerns Infection Onset Date Last Indicated Resolved Time MRSA Comment:05/13 MRSA nasal swab doesn't require iso, ES 03/09/2022 03/09/2022 05/13/2022 6:57 AM MANAGER MEDICARE MARKETING documented as of this encounter Care Teams Adolescent Specialist Relationship Specialty Start Date End Date Joyce Luevano, KOLTON-DRAPERY ESTIMATOR [address] [place] [address] PCP - General 03/08/22 11/17/23 Elizabeth Sullivan, ALFRED Plate Mounter 10/14/17 documented as of this encounter
--- OUTSIDE RECORDS SUMMARY | 2024-06-08 05:38 | XMS_ITS | Encounter Summary ---
Author Organization [facility] Health Address [address] [facility] [place] [address] Care Team Providers Care Fire Chief Deputy Name Role Phone Elizabeth Sullivan RN Unavailable [phone] Joyce Luevano ALL SOURCE COLLECTION MANAGER-OUTPATIENT ADMITTING CLERK Primary Care Provider [phone] Reason for Visit * Reason Onset Date Comments MEDICATION REFILL 05/10/2022 Encounter Details Date Type Department Care Team (Late st Contact Info) Description 05/10/2022 Refill [facility] [address] [facility], [place] [address] Yana Rm APRN-CNP [address] [place] [address] MEDICATION REFILL Social History Tobacco [...] Telephone Encounter - Michaela Bass RN - 05/10/2022 1:28 PM CST Scripts need to be sent to [facility] instead of [facility]. Will request that BOUCHRA Rm approve this change. 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, not intractable, without status epilepticus (HCC)- Primary Partial 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, intractable, with status epilepticus (HCC) Seizures (HCC) Other convulsions documented in this encounter Additional Health Concerns Infection Onset Date Last Indicated Resolved Time 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
--- OUTSIDE RECORDS SUMMARY | 2024-06-08 05:38 | XMS_ITS | Encounter Summary ---
Author Organization [facility] Health Address [address] [facility] [place] [address] Care Team Providers Care Karate Teacher Name Role Phone Elizabeth Sullivan RN Unavailable [phone] Joyce Luevano TEST HOLE DRILLER-HAND SCRAPER Primary Care Provider [phone] Reason for Visit * Reason Onset Date Comments Medication Prior Auth Request 05/27/2022 Encounter Details Date Type Department Care Team (Late st Contact Info) Description 05/27/2022 Telephone [facility] [address] [place] [address] Yana Rm APRN-CNP [address] [place] [address] Medication Prior Auth Request Social [...] Encounter - Michaela Bass RN - 05/27/2022 9:28 AM CST Response from Raf as below: Your PA has been resolved, no additional PA is required. For further inquiries please contact the number on the back of the member prescription card. (Message [phone]) Contacted pharmacy and gave them this information for a paid claim. Let facility know. CY CHANGE CLERKS SUPERVISOR * Telephone Encounter - Michaela Bass RN - 05/27/2022 9:12 AM CST PA initiated with [facility] via covermymeds for divalproex DR 500mg tabs. Included last visit note dated 05/06/2022. Will await a response. [place]: [address] Facility is aware of the PA process. CY CHANGE CLERKS SUPERVISOR documented in this encounter Plan of Treatment Upcoming Encounters Date Type Department Care Team (Late st Contact Info) Description 12/05/2024 1:00 PM CDT Office Visit [facility] [address] [facility], [place] [address] Sean Raymundo, [address] [place] [address] documented as of this encounter Visit Diagnoses Not on filedocumented in this encounter Care Teams Karate Teacher Relationship Specialty Start Date End Date Joyce Luevano, TEST HOLE DRILLER-HAND SCRAPER [address] [place] [address] PCP - General 03/08/22 11/17/23 Elizabeth Sullivan, ALFRED Chief Engineer Production 10/14/17 documented as of this encounter
--- OUTSIDE RECORDS SUMMARY | 2024-06-08 05:38 | XMS_ITS | Encounter Summary ---
Author Organization [facility] Health Address [address] [facility] [place] [address] Care Team Providers Care Advertising Campaign Manager Name Role Phone Elizabeth Sullivan RN Unavailable [phone] Joyce Luevano DEFENCE FORCE SENIOR OFFICER-CONSIGNEE Primary Care Provider [phone] Reason for Visit * Reason Comments Peripheral Artery Disease Encounter Details Date Type Department Care Team (Late st Contact Info) Description 04/28/2022 10:00 AM TRAFFIC INSPECTOR Office Visit [facility], [place] [address] Anna Membreno MD [facility] 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) Social History Tobacco Use Types Packs/Day Years Used Date Smoking Tobacco: Former Cigarettes 1 15 Smokeless Tobacco: Never Tobacco Cessation:Counseling Given: No Alcohol Use Standard Drinks/Week Comments No 0 [...] Sign Reading Time Taken Comments Blood Pressure 125/81 04/28/2022 11:22 AM TRAFFIC INSPECTOR Pulse 75 04/28/2022 11:22 AM TRAFFIC INSPECTOR Temperature 36.1 ??C (97 ??F) 04/28/2022 11:22 AM TRAFFIC INSPECTOR Respiratory Rate - - Oxygen Saturation 97% 04/28/2022 11:22 AM TRAFFIC INSPECTOR Inhaled Oxygen Concentration - - Weight 47.6 kg (105 lb) 04/28/2022 11:22 AM TRAFFIC INSPECTOR Height 170.2 cm (5' 7 ) 04/28/2022 11:22 AM TRAFFIC INSPECTOR Body Mass Index 16.45 04/28/2022 11:22 AM TRAFFIC INSPECTOR documented in this encounter Functional Status Functional [...] Yes 03/10/2022 documented as of this encounter Patient Instructions * Patient Instructions* Benjamin Gutierrez RN - 04/28/2022 11:45 AM TRAFFIC INSPECTOR Follow up with Dr. Membreno as needed. To make, change, or cancel an appointment call [phone]. [facility] Vascular Surgery The prosthetic provider will come see you at your facility. FIC INSPECTOR documented in this encounter Progress Notes * Anna Membreno MD - 04/28/2022 11:47 AM CST Mr. Tabor is a 62 year old male who is here for a postop follow up for a left AKA on 03/15/22. Wound looks great. [facility]. Prosthetics notified ?? Patient has a current functional level of K3 according to the definitions listed below. Pt has an expected K level of K3 according to definitions listed below K 0: does not have ability to ambulate or transfer safely with or without assistance and prosthesisdoes not enhance quality of life or mobility. Prosthesis not indicated K 1: Has the ability or potential to use a protheses for transfers or ambulation on level surfaces at fixed renae. This is a typical household ambulator K 2: has the ability to or potential for ambulation with the ability to traverse low level environmental barriers such as curbs, stairs or uneven surfaces. Typical of the limited community ambulator K 3: has the ability or potential for ambulation with variable renae. Typical of the community ambulator who has the ability to traverse most environmental barriers and may have vocational, therapeutic or exercise activity that demands prosthetic utilization beyond simple locomotion. K 4: Has the ability or potential for prosthetic ambulation that exceeds basic ambulation skills, exhibiting high impact, stress or energy levels. Typical of the prosthetic demands of the child, active, adult or athlete. Patient is a K3 level ambulator. Patient prior to amputation was completely independent with all ofhis ADL's. Prognosis is good with a prosthetic and therapy after he is fit Amputation level is left above the knee Cause ischemic ulcers on foot Date 03/15/2022 Motivation Wants to walk FIC INSPECTOR documented in this encounter Plan of Treatment Upcoming Encounters Date Type Department Care Team (Late st Contact Info) Description 12/05/2024 1:00 PM CDT Office Visit 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
--- OUTSIDE RECORDS SUMMARY | 2024-06-08 05:38 | XMS_ITS | Encounter Summary ---
Author Organization [facility] Health Address [address] [facility] [place] [address] Care Team Providers Care Packager Name Role Phone Elizabeth Sullivan RN Unavailable Joyce Luevano EDGE GLUER-STRAIGHTEDGE MAN Primary Care Provider [phone] Reason for Visit * Reason Onset Date Comments Order 05/19/2022 Encounter Details Date Type Department Care Team (Late st Contact Info) Description 05/19/2022 Telephone [facility] [address] [place] [address] Yana Rm APRN-CNP [address] [place] [address] Order Social History Tobacco Use [...] Telephone Encounter - Michaela Bass RN - 05/19/2022 10:11 AM CST Spoke with Alma SIMON and she has lab work scheduled for Tuesday05/24/22 and will have the results faxed to our office. ING SHOVEL OPERATOR * Telephone Encounter - Michaela Bass RN - 05/19/2022 10:08 AM CST ----- Message from ELANA Cullen sent at 05/19/2022 9:53 AM LOGGING SHOVEL OPERATOR ----- Sommer William, Those labs I ordered on patient, could you see if [facility] would draw them on Tuesday05/24/22, if they need new orders let me know. Thank you! -Yana ----- Message ----- From: Sean Raymundo DO Sent: 05/19/2022 9:49 AM LOGGING SHOVEL OPERATOR To: ELANA Cullen Next week sometime should be fine ----- Message ----- From: Yana Rm APRN-CNP Sent: 05/18/2022 11:41 AM LOGGING SHOVEL OPERATOR To: Sean Raymundo, DO He is was discharged on 05/14/22. Since he was switched to Depakote sprinkles, when would you recommend repeat labs be done? Maribel Sexton ING SHOVEL OPERATOR documented in this encounter Plan of Treatment Upcoming Encounters Date Type Department Care Team (Late st Contact Info) Description 12/05/2024 1:00 PM CDT Office Visit [facility] - Neurology [address] [place] [address], [place] [address] Sean Raymundo, [address] [place] [phone] documented as of this encounter Visit Diagnoses Not on filedocumented in this encounter Care Teams Packager Relationship Specialty Start Date End Date Joyce Luevano APRN-BELINDA [address] [place] [address] PCP - General 03/08/22 11/17/23 Elizabeth Sullivan, RN Hamper Maker 10/14/17 documented as of this encounter
--- OUTSIDE RECORDS SUMMARY | 2024-06-08 05:38 | XMS_ITS | Encounter Summary ---
Author Organization [facility] Health Address [address] [place] [address] Care Team Providers Care Reeling Machine Setup Operator Name Role Phone Elizabeth Sullivan RN Unavailable [phone] Joyce Luevano DIRECTOR OF PROGRAM MANAGEMENT-GROUP BURNER MACHINE Primary Care Provider [phone] Encounter Details Date Type Department Care Team (Late st Contact Info) Description 05/06/2022 10:30 AM CLIENT SUCCESS SPECIALIST Office Visit [facility] [address] [facility], [facility] [place] [phone] Yana Rm APRN-CNP [address] [place] [address] 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, not intractable, without status epilepticus (HCC) (Primary Dx) Social History Tobacco Use [...] Sign Reading Time Taken Comments Blood Pressure 133/85 05/06/2022 10:38 AM CLIENT SUCCESS SPECIALIST Pulse 85 05/06/2022 10:38 AM CLIENT SUCCESS SPECIALIST Temperature 36.2 ??C (97.1 ??F) 05/06/2022 10:[address] Respiratory Rate - - Oxygen Saturation 97% 05/06/2022 10:38 AM CLIENT SUCCESS SPECIALIST Inhaled Oxygen Concentration - - Weight 47.6 kg (105 lb) 05/06/2022 10:38 AM CLIENT SUCCESS SPECIALIST Height 170.2 cm (5' 7 ) 05/06/2022 10:38 AM CLIENT SUCCESS SPECIALIST Body Mass Index 16.45 05/06/2022 10:38 AM CLIENT SUCCESS SPECIALIST documented in this encounter Functional Status [...] Yes 03/10/2022 documented as of this encounter Progress Notes * Yana Rm APRN-CNP - 05/06/2022 10:30 AM CST Epilepsy Clinic Note PCP ELANA Saldaña Date of Encounter: 05/05/2022 Chief Complaint: Seizure SEMIOLOGY AGE OF ONSET 30s SEMIOLOGY - Aura Unsure, just a feeling I'm going to have a seizure - Ictus #1.) staring off events Duration: few seconds #2.) Convulsions, with tongue injury Duration: few minutes - Post-ictus Confusion, aggression, disagreeable, possible paranoia Duration: several days SEIZURE CONTROL Seizure frequency #1.) unknown #2.) monthly? Possibly more Date of last seizure #1 & 2 none reported since discharge from hospital 12/2021 PRE-VISIT MEDICATION Name Pill Size Frequency Total/Day Level Levetiracetam 1,000mg 2-2 4,000mg/day Valproic acid (250mg/5ml) 10ml 1-1-1-1 2,000mg/day Lacosamide 200mg 1-1 400mg/day Clobazam 10mg 1-1 20mg/day COMPLIANCE Good TREATMENT HISTORY Name Allergy/Side Effects/Ineffectiveness Name Allergy/Side Effects/Ineffectiveness Phenytoin Oxcarbazepine Hyponatremia Eslicabazepine Erratic Clonazepam Excessive somnolence at 4 mg/day/hallucinations Valtoco- was not using, did not want refills EE03/16/22-03/17/2022 (Dr. Raymundo) IMPRESSION This is an abnormal cEEG due to 1) right fronto-temporal epileptiform discharges, 2) focal slowing over the right hemisphere, and 3) generalized slowing. ?? 01/05/2022: (Dr. Raymundo) IMPRESSION This is an abnormal epilepsy monitoring recording due to 1) resolved electro- clinical focal seizures 2) right hemispheric slowing CLINICAL CORRELATION: These findings indicate a resolved focal epileptic process arising from the right parietal region broadly. With continued area of focal cortical dysfunction. 12/22/2021: (Dr. Raymundo) IMP RESSION This is an abnormal epilepsy monitoring recording due to 1) multiple focal electrographic seizure from the right posterior region, 2) multifocal epileptiform discharges and 3) mild generalized slowing. ?? 08/20/2020: (Dr. Raymundo) This is an abnormal cEEG due to 1) right focal electrographic seizures (resolved), 2) occasional right sided spikes and sharp waves, 3) right sided slowing, 4) generalized slowing. 08/15/2020 (Dr. Raymundo) This is an abnormal cEEG due to 1) frequent right focal electrographic seizures, 2) right sided slowing, 3) generalized slowing. 04/2019 cEEG. (Dr. Feliciano) This is an abnormal cEEG due to 1) focal onset seizures, 2) right hemispheric epileptiform discharges and lateralized periodic discharges (LPDs), 3) lateralized right hemispheric slowing, and 4) moderate generalized slowing. 10/15/2017 (cEEG Dr. Carmen) This is an abnormal EEG. The abnormalities are in the form of: 1. Intermittent interictal sharp wave discharges in the right frontal region, spread to bi-frontal regions some time, more during sleep than awake. One clinical focal seizure impairment of awareness from right frontal, anterior temporal regions, secondary generalized to hyper motor activity with 2 minute duration around 5 am on 10/14/2017. 2. Right hemisphere lateralized slowing with right temporal focal slowing, suggestive of underline structure/functional abnormalities. 08/12/2015.( Dr. Suazo) This is a normal awake and drowsy EEG IMAGIN12/29/2021: CT Head WO contrast: [facility] IMPRESSION: 1.No acute intracranial process. 2.Old infarcts and senescent changes are stable compared to the brain CT from 05/01/2021. 05/01/2021: CT head wo contrast: [facility] 1.No acute intracranial hemorrhage. 2.No evidence of acute fracture in the cervical spine. 3.Advanced degenerative disc disease at C5-C6 and C6-C7. 02/25/2021: CT Brain Stroke; [facility] 1. No acute hemorrhage or large acute infarction. 2. Chronic moderate cerebral and cerebellar volume loss with chronic microvascular ischemic disease with multiple bilateral basal ganglia and thalamic microinfarctions. 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 08/15/2020: MRI Brain WO Contrast: [facility] 1.Motion limited study. Within this limitation, no acute intracranial abnormality. 2.Extensive cerebral, cerebellar and brainstem atrophy, significantly greater than expected for age. 3.Extensive atrophy of the right hippocampus, asymmetric as compared to the left. There is likely increased FLAIR signal in the residual right hippocampus. These findings are related to chronic seizures. 08/13/2020: CT head WO Contrast: [facility] 1.No acute intracranial hemorrhage, midline shift, or significant mass effect 2.Generalized volume loss, chronic infarcts and nonspecific white matter changes, likely vascular related. 3.There is a polypoid mucosal thickening within the right maxillary sinus, increased in size compared to the prior CT from 01/14/2019. Findings could be inflammatory, represent nasal polyposis however underlying lesion cannot be excluded. Clinical correlation/ENT consult is recommended. CLASSIFICATION: Refractory, focal epilepsy LABORATORY RESULTS CBC: Recent Labs Component Name 04/01/22 0608 03/31/22 0637 03/30/22 0216 WBC 8.2 8.5 6.8 HGB 11.0* 10.8* 12.2 PLTCOUNT 219 238 240 BMP: Recent Labs Component Name 04/01/22 0608 03/31/22 0637 03/30/22 0216 NA 138 137 140 CO2 29 31* 26 CREATININE 0.49* 0.46* 0.55* LFT: Recent Labs Component Name 03/17/22 1112 03/14/22 0458 03/11/22 1059 AST 34 35* 60* ALT 21 23 26 VITAMIN D: Recent Labs Component Name 05/10/19 0832 01/15/19 0722 [id number] 28.9* 6.7* HPI: History of Epilepsy: Mr. Tabor is a 62 year old man, with past medical history including alcohol abuse (resolved 2015), CVA, HTN, HLD, prior head injury, cervical osteoarthritis, anxiety, Alzheimer's (early onset) and refractory epilepsy. Seizure, age of onset was in his 30s. Patient has two seizure types, type #1 brief staring events and type #2 being generalized convulsive events. Patient has a long history of refractory epilepsy with failure of multiple medications, see treatment history listed above. Appears that compliance has been erratic historically, but patient did still have breakthrough seizures when he had good compliance with medications and therapeutic ASM levels. In 04/2019 patient had repetitive seizures and status epilepticus. Etiology suspected due to compliance issues. 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 A code stroke was called, and it was noted that patient had left sided carotid stenosis. Patient followed by Dr. Romeo with vascular neurology. Patient left nursing facility in 06/2021, and there was a concern that the facility was messing withhis medication and that was causing issues with his seizure frequency and compliance concerns. Patient's medications are managed by family now, and he has a caregiver that comes in on Tuesday, Wednesdays and Fridays. Patient was referred to EMU for medication adjustment and to quantify patient's seizure burden. During first few days of admission, despite no medication tapering the patient had frequent subclinical electrographic seizures and broad right posterior field clinical events. Patient's seizures frequency increased to >7/hour. On 12/29/2021 a code stroke was activated due to left sided weakness but stroke workup was negative. On 12/30/2021 patient was transferred to ICU for close monitoring, cloba sudheer 10mg BID was added. Patient was discharged on 01/07/22 and was sent to an acute rehab facility. Patient now in a SNF to regain his strength. Patient and sisters believe that he is slowly improving. No reported seizure events from facility. Patient working with PT to regain strength to left side and working with ST. Now on a regular diet. There was concern for possible hallucinations at one time, but this has resolved. Patient alert today and answering questions appropriately. Today's visit HPI: Bi Tabor is a 62 year old male established with [facility] Epilepsy clinic here today for a follow-up visit. 03/08/2022 patient was admitted to hospital from SNF due to mental status changes and ischemic ulcer to left foot. On 03/15/2022 left AKA. PEG tube placed due to dysphagia. Patient saw vascular surgeon on 04/28/2022, genie removed, plan for prosthesis. Patient recently passed swallow screening and is on a puree diet. Still using PEG tube for medications at this time. Family/facility deny any seizure events. Overall believe patient is doing well on current ASM regimen. Will obtain labs, instructed to notify our clinic if patient's medications need to be switched to PO in future. 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 Clonazepam Psychiatric hallucinations Current Outpatient Medications Medication Sig ??? acetaminophen (Tylenol) 325 MG tablet Take 1 (one) tablet by mouth every 6 hours as needed for Fever or Pain ??? artificial tears ophthalmic solution Instill 1 (one) drop into both eyes 3 times daily as needed ??? aspirin (Aspirin) 81 MG chew tablet Take 1 (one) tablet by mouth once daily ??? atorvastatin (Lipitor) 40 MG tablet 1 (one) tablet by Enteral Tube route once daily ??? bisacodyl (Dulcolax) 10 MG suppository Insert 1 (one) suppository into the rectum once daily asneeded for Constipation ??? cloBAZam (Onfi) 10 MG tablet 1 (one) [...] Per G Tube route 4 times daily No current facility-administered medications for this visit. Past Medical History: Diagnosis Date ??? CVA (cerebral vascular accident) (CMS/HCC) ??? HTN (hypertension) ??? Seizure (CMS/HCC) No family history on file. Social History [...] Alcohol use: No Comment: last drink 2016 ??? Drug use: No Comment: occasional ??? [...] on file Housing Stability: Not on file Alcohol usage no Illicit substance no Marijuana usage no Physical Exam: BP 133/85 Pulse 85 Temp 97.1 ??F (36.2 ??C) (Oral) Ht 5' 7 (1.702 m) Wt 105 lb (47.6 kg) SpO2 97% General Awake, alert, appropriate HEENT: Head normocephalic and atraumatic Extremities: No cyanosis or edema noted ?? Cortical Function: MS: Awake, Alert, Follows Commands Oriented to Person, Place Language: some delayed responses ?? Cranial Nerves: Full EOM, No ptosis or nystagmus No facial palsy Palate symmetric; Normal tongue protrusion ?? Motor: Strength: RUE 5/5 LUE 4/5 RLE 5/5 Left AKA Assessment/Plan: Bi Tabor is a 62 year old male with refractory, focal epilepsy. No reported seizure events fromfamily/facility. Overall, patient feels like he is doing well, will check labs and continue currentASM regimen. -Obtain drug level, labs ordered for facility to draw -Continue current ASM medication regimen listed below -Report any seizure events -follow-up in 3 months or sooner if problems arise Patient and family agree and voice understanding of plan of care listed above POST-VISIT MEDICATION Name Pill Size Frequency Total/Day Level Levetiracetam 1,000mg 2-2 4,000mg/day Valproic acid (250mg/5ml) 10ml 1-1-1-1 2,000mg/day Lacosamide 200mg 1-1 400mg/day Clobazam 10mg 1-1 20mg/day I told the in clear terms regarding importance of compliance. I personally spent 45 minutes on 05/06/2022 preparing to see the patient (e.g. reviewing chart, review of tests), obtaining and/or reviewing the separately obtained history, performing a medically necessary and appropriate examination and evaluation, counseling and educating the patient/family/caregiver, ordering medications, tests, or procedures, documenting in the patient record, and communicating results to the patient/family/caregiver. ELANA Cullen NT SUCCESS SPECIALIST documented in this encounter Plan of Treatment Upcoming Encounters Date Type Department Care Team (Late st Contact Info) Description 12/05/2024 1:00 PM CDT Office Visit [facility] - Neurology [address] [place] [address] Sean Raymundo DO [address] [place] [phone] documented as of this encounter Results * LACOSAMIDE (12/08/2022 4:29 AM CDT) Lacosamide 5.3 1.0 - 10.0 ug/mL 12/12/2022 9:22 AM CDT [facility] ([facility]) Comment: INTERPRETIVE INFORMATION: Lacosamide, Serum [...] developed and its performance characteristics determined by [employer]. It has not been cleared or approved by the US Food and Drug Administration. This test was performed in a CLIA-certified laboratory and is intended for clinical purposes. Performed By: [facility] [facility] [address] [place] [id number] Buildings Painter: Power Milian MD, PhD Blood BLOOD SPECIMEN / Unknown Lab Venipuncture / Unknown 12/08/2022 4:29 AM CDT 12/08/2022 5:35 AM CDT Yana HUITRON LAB - CHEMISTR Y ORDERABLES Performing Organization Address City/[facility]/ZIP Co de Phone Number [facility]) [address] [place] [address], [facility] * (ABNORMAL) VALPROIC ACID LEVEL (12/08/2022 4:29 AM CDT) Valproic Acid Total 38(L) 50 - 100 ug/mL 12/08/2022 6:27 AM CDT [facility] Blood BLOOD SPECIMEN / Unknown Lab Venipuncture / Unknown 12/08/2022 4:29 AM CDT 12/08/2022 5:35 AM CDT Yana Rm DIRECTOR OF PROGRAM MANAGEMENT-GROUP BURNER MACHINE LAB - CHEMISTR Y ORDERABLES Performing Organization Address [facility]/ZIP Co de Phone Number [facility] [address] [place] [address], [facility] [phone] * (ABNORMAL) LEVETIRACETAM LEVEL (12/08/2022 4:29 AM CDT) Pathologist [facility] Levetiracetam 43(H) 10 - 40 ug/mL 12/09/2022 3:20 PM CDT [facility] ([facility]) Comment: INTERPRETIVE INFORMATION: Keppra (Levetiracetam) Therapeutic Range: ??10-40 ug/mL ?Toxic: ??Not well Established Pharmacokinetics of levetiracetam are affected by renal function. Adverse effects may include somnolence, weakness, headache and vomiting. This levetiracetam (Keppra) immunoassay uses the [employer] reagents, which has known cross-reactivity with the drug brivaracetam (Briviact) and may report inaccurate results. Patients transitioning from levetiracetam to brivaracetam or those who are using both medications should not monitor drug concentrations with the [employer] assay. These patients should be monitored using a validated chromatographic methodology that distinguishes between drugs to determine drug concentrations. 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
--- OUTSIDE RECORDS SUMMARY | 2024-06-08 05:38 | XMS_ITS | Encounter Summary ---
Author Organization [facility] Address [address] [place] [address] Care Team Providers Care Universal Grinder Set Up Operator Name Role Phone Elizabeth Sullivan RN Unavailable [phone] Joyce Luevano STRATEGIC SOURCING CONSULTANT-QUALITY SYSTEMS ENGINEER Primary Care Provider [phone] Encounter Details Date Type Department Care Team (Late st Contact Info) Description 05/11/2022 Orders Only [facility] [address] [facility], [facility] [place] [address] Yana Rm APRN-CNP [address] [place] [address] 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 Obtained previous lab results from facility, ASM levels lower than historically normal for patient. Labs ordered last week not completed yet? Will try to obtain Patient's ASMs have been given via PEG due to dysphagia, patient recently passed swallow evaluation. ASM changed back to PO Levetiracetam 1,000mg, 2 pills twice daily (4,000mg/day) Lacosamide 200mg, 1 pill twice daily (400mg/day) Clobazam 10mg, 1 pill twice daily (20mg/day) Depakote DR 500mg, 2 pills twice daily (2,000mg/day) 05/11/2022: Call this AM, SNF reported 1 focal seizure. [address]. Raymundo; SNF instructed to increased Clobazam to 20mg BID. Call from facility, reported several more focal seizure this AM. Given's patient's history of status, instructed to call EMS to bring patient to ER for evaluation/treamtnet. 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, not intractable, 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, intractable, with status epilepticus (HCC) Seizures (HCC) Other convulsions documented in this encounter Additional Health Concerns Infection Onset Date Last Indicated Resolved Time MRSA Comment:05/13 MRSA nasal swab doesn't require iso, ES 03/09/2022 03/09/2022 05/13/2022 6:57 AM STERILE PROCESS COORDINATOR documented as of this encounter Care Teams Universal Grinder Set Up Operator Relationship Specialty Start Date End Date Joyce Luevano APRN-CNP [address] [place] [address] PCP - General 03/08/22 11/17/23 Elizabeth Sullivan, ALFRED Doggy Daycare Activities Director 10/14/17 documented as of this encounter
--- OUTSIDE RECORDS SUMMARY | 2024-06-08 05:38 | XMS_ITS | Encounter Summary ---
Author Organization [facility] Health Address [address] [place] [address] Care Team Providers Care Health Service Worker Name Role Phone Elizabeth Sullivan RN Unavailable [phone] Joyce Luevano SCREEN TENDER-ELIGIBILITY CONSULTANT Primary Care Provider [phone] Reason for Visit * Reason Onset Date Comments Seizure 05/11/2022 Encounter Details Date Type Department Care Team (Late st Contact Info) Description 05/11/2022 Telephone [facility] [address] [place] [address] Yana Rm APRN-CNP [address] [place] [address] Seizure Social History Tobacco Use Types Packs/Day [...] Encounter - Michaela Bass RN - 05/11/2022 10:14 AM CST Images from the original note were not included. Yana Rm, KOLTON-Michaela Snow, ALFRED Caller: Unspecified (Today, ??8:35 AM) Scott William, Can you let facility know I sent a new prescription. With his increased seizures I'm increasing hisClobazam to 20mg twice daily. If they already gave the 10mg of clobazam this morning, go ahead and give another 10mg, and then 20mg tonight. Thank you -Yana Contacted Alma at patient's facility and informed her of the above. She v/u. She did ask if she should send him to the ED due to increased petit mal seizures as well as the reported seizures. Per ACCESS ANALYST Jag informed her to send the patient to the ED at [facility]. E HISTORIAN * Telephone Encounter - Evy Frost RN - 05/11/2022 8:45 AM CST Received message from Alma at facility reporting that patient had 2 seizures yesterday and one this morning at 7:45. Patient is doing fine as of call. She states she is working with the pharmacy to get the new medications. She will call and can be contacted for any updates or changes. She called to report the seizures. E HISTORIAN documented in this encounter Plan of Treatment Upcoming Encounters Date Type Department Care Team (Late st Contact Info) Description 12/05/2024 1:00 PM CDT Office Visit [facility] - Neurology [address] [place] [address], [place] [phone] Sean Raymundo, DO [address] [place] [phone] documented as of this encounter Visit Diagnoses Not on filedocumented in this encounter Additional Health Concerns Infection Onset Date Last Indicated Resolved Time MRSA Comment:05/13 MRSA nasal swab doesn't require iso, ES 03/09/2022 03/09/2022 05/13/2022 6:57 AM DANCE HISTORIAN documented as of this encounter Care Teams Health Service Worker Relationship Specialty Start Date End Date Joyce Luevano, KOLTON-ELIGIBILITY CONSULTANT [address] [place] [address] PCP - General 03/08/22 11/17/23 Elizabeth Sullivan, ALFRED Laboratory Assistant 10/14/17 documented as of this encounter
--- OUTSIDE RECORDS SUMMARY | 2024-06-08 05:38 | XMS_ITS | Encounter Summary ---
Author Organization [facility] Health Address [address] [place] [address] Care Team Providers Care Director Of Solutions Architecture Name Role Phone Elizabeth Sullivan RN Unavailable [phone] Joyce Luevano [employer] Primary Care Provider [phone] Reason for Visit * Reason Onset Date Comments Order 05/06/2022 Encounter Details Date Type Department Care Team (Late st Contact Info) Description 05/06/2022 Telephone [facility] [address] [place] [address] Yana Rm APRN-CNP [address] [place] [address] Order Social History Tobacco Use [...] encounter Miscellaneous Notes * Addendum Note - Crystal Leo RN - 05/10/2022 1:32 PM CSTAddended by: CRYSTAL LEO on: 05/10/2022 01:32 PM Modules accepted: Orders TENANCE MECHANIC HELPER * Telephone Encounter - Crystal Leo RN - 05/10/2022 1:20 PM CST Images from the original note were not included. Yana Rm APRN-Crystal Snow RN Caller: Unspecified (4 days ago, 12:53 PM) Thanks for getting those so quickly Nataliia! Can you let facility know that I'm switching his medications back to oral. Rxs sent to pharmacy; they might need them faxed to them. Levetiracetam 1,000mg, 2 pills twice daily, via PO Lacosamide 200mg, 1 pill twice daily, via PO Clobazam 10mg, 1 pill twice daily, via PO Liquid valproic acid; give the afternoon dose. Then evening dose start PO Depakote DR 500mg, 2 pills twice daily; and discontinue the liquid form. Thank you -Yana Called Alma RN at facility and gave her the above orders. Scripts need to be sent to [facility] and not [facility]. Will send refill request to [facility] Rm for her approval. Faxed scripts as well to the facility to the attention of Alma at [phone]. She v/u. TENANCE MECHANIC HELPER * Telephone Encounter - Crystal Leo RN - 05/10/2022 12:38 PM CST Spoke with Alma SIMON at patient's facility and labs were drawn. Valproic acid=29 Keppra=47 Lacosamide=3.5 Will fax results along with other results that they have drawn in house CBC, CMP etc. Will inform [facility] Rm. TENANCE MECHANIC HELPER * Telephone Encounter - Crystal Leo RN - 05/06/2022 12:53 PM CST Contacted [facility] at [phone] and let them know that I would be faxing laborders over for patient to be drawn. Put to the attention of Alma at [phone]. 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
--- OUTSIDE RECORDS SUMMARY | 2024-06-08 05:38 | XMS_ITS | Encounter Summary ---
Author Organization [facility] Health Address [address] [place] [address] Care Team Providers Care Pipe Smoker Machine Operator Name Role Phone Elizabeth Sullivan RN Unavailable [phone] Joyce Luevano SOLAR PANEL INSTALLATION SUPERVISOR-DISK AND TAPE MACHINE TENDER Primary Care Provider [phone] Reason for Visit * Reason Comments Seizure * Auth/Cert (Routine) Specialty Diagnoses / Procedures Referred By Contac t Referred To Contact Referral ID Status Reason Start Date Expiration Date Visits Re quested Visits Authorized [id number] 1 1 Encounter Details Date Type Department Care Team (Late st Contact Info) Description 05/11/2022 12:27 PM CHIEF RISK OFFICER - 05/14/2022 5:58 PM CHIEF RISK OFFICER Emergency [facility] [address]N ACUTE [address] [place] [phone] Leonardo Adams MD [address] [place] [address] Elizabeth Hernandez MD [address] [place] [address] [place] [address] Kortney Vega MD [address] [place] [address] Shane Little MD [address] [place] [address] Baldev Carl MD [address] [facility] [address] [place] [id number] Emergency Medicine Discharge Disposition: Assisted Facility Social History Tobacco Use Types Packs/Day [...] Sign Reading Time Taken Comments Blood Pressure 143/82 05/14/2022 12:09 AM CHIEF RISK OFFICER Pulse 73 05/14/2022 12:09 AM CHIEF RISK OFFICER Temperature 36.7 ??C (98 ??F) 05/14/2022 12:09 AM CHIEF RISK OFFICER Respiratory Rate 29 05/14/2022 12:09 AM CHIEF RISK OFFICER Oxygen Saturation 99% 05/14/2022 12:09 AM CHIEF RISK OFFICER Inhaled Oxygen Concentration - - Weight 59.5 kg (131 lb 2.8 oz) 05/12/2022 10:02 PM CHIEF RISK OFFICER Height 172.7 cm (5' 8 ) 05/11/2022 12:32 PM CHIEF RISK OFFICER Body Mass Index 19.94 05/11/2022 12:32 PM CHIEF RISK OFFICER documented in this encounter Functional Status Functional [...] Yes 03/10/2022 documented as of this encounter Discharge Summaries * Karime Echavarria MD - 05/14/2022 4:19 PM CST Physician Discharge Summary Patient ID: Mojgan Tabor [id number] 62 year old 1960 Admit date: 05/11/2022 Discharge date: 05/14/2022 Admitting Physician: Baldev Carl MD Discharge Physician: Baldev Carl MD Admission Diagnoses: Refractory Epilepsy Discharge Diagnoses: Refractory Epilepsy Discharged Condition: fair Hospital Course: Mojgan Tabor is a 62 year old male w/ PMHx of alcohol abuse (resolved 2015), Right occipital strokein 2014, HTN, HLD, prior head injury, cervical osteoarthritis, anxiety, Alzheimer's (early onset) and refractory epilepsy who presents from SNF d/t report of multiple seizures x2 days. Neurology clinic was made aware and instructed patient to seek attention in the ED. No seizures were noted in en route, per report. ??In ED, patient afebrile, hemodynamically stable, and satting well on room air. CMP and CBC unremarkable. CXR unremarkable. CTH negative for acute process. Was loaded with 2g keppra on arrival in ED. Placed on cEEG. Loaded w/ 1g valproic acid and ASM started (via PEG). cEEG??on 05/11-05/12??w/ epileptiform discharges over the right parietal and right fronto-temporal region, lateralized right kirill spheric slowing, and??generalized slowing. cEEG??on 05/12-05/13 showed??right centro-parietal onsetseizure,??epileptiform discharges over the right parietal and right fronto-temporal region, lateralized right hemispheric slowing, and??generalized slowing. Valproic acid level 05/13 was 54. Patient's ASM medications were adjusted during hospitalization and he should be discharged on the medications as noted below. Will follow up with epilepsy clinic. During hospitalization, speech consulted for dysphagia (given would like to switch meds to PO if possible) and MBS done 05/12 which showed??esophageal retention of all trials. TFs started. GI consulted and no repeat endoscopy recommended. ENT consulted and performed laryngoscopy which showed no obvious diverticulum, pooling of secretions in the piriforms, and posterior glottic scar. Esophagram performed and ENT will f/u on zenker's diverticulum as outpatient. Patient will need to continue with TF per PEG tube and meds per PEG tube. Consults: ENT, GI Significant Diagnostic Studies: See hospital course Treatments: See hospital course Discharge Exam: as noted in progress note from today. Disposition: longterm facility Patient Instructions: Current Discharge Medication List START taking these medications Instructions Authorizing Provider divalproex sprinkle 125 MG capsule Commonly known as: Depakote Sprinkle Replaces: divalproex DR 500 MG tablet 8 (eight) capsules by Enteral Tube route 2 times daily Karime Echavarria MD CONTINUE taking these medications which have CHANGED Instructions Authorizing Provider cloBAZam 20 MG tablet What changed: ?? medication strength ?? how to take this Commonly known as: Onfi 1 (one) tablet by Enteral Tube route 2 times daily Karime Echavarria MD lacosamide 200 MG tablet What changed: how to take this Commonly known as: Vimpat 1 (one) tablet by Enteral Tube route 2 times daily Karime Echavarria MD levETIRAcetam 1000 MG tablet What changed: how to take this Commonly known as: Keppra 2 (two) tablets by Enteral Tube route 2 times daily Karime Echavarria MD CONTINUE taking these medications which have NOT [...] as needed for Constipation Dante Nuno MD folic acid 1 MG tablet Commonly known as: Folvite 1 (one) tablet by Enteral Tube route once daily Dante Nuno MD polyethylene glycol 3350 17 g packet Commonly known as: Miralax Take 17 (seventeen) g by mouth once daily Rxoanna Coburn MD tamsulosin 0.4 MG capsule Commonly known as: Flomax Take 1 (one) capsule by mouth once daily At the same time every day after a meal. Dante Nuno MD thiamine 100 MG tablet Commonly known as: Vitamin B-1 1 (one) tablet by Enteral Tube route once daily Dante Nuno MD STOP taking these medications divalproex DR 500 MG tablet Commonly known as: Depakote Replaced by: divalproex sprinkle 125 MG capsule Activity: activity as tolerated Diet: tube feeding bolus Wound Care: Keep wound clean and dry Follow-up with epilepsy clinic and ENT as outpatient. Signed: Karime Echavarria MD 05/14/2022 4:38 PM F RISK OFFICER Associated attestation - Baldev Carl MD - 05/15/2022 2:32 PM CHIEF RISK OFFICER Concur with discharge summary. Please see my addendum to progress note from the day of discharge. documented in this encounter Discharge Instructions * Discharge Instructions* Karime Echavarria MD - 05/14/2022 1:32 PM CHIEF RISK OFFICER A Note From Your Doctors: Dear Mr. Tabor, You were admitted to the hospital for seizures. We adjusted your seizure medications while you werehere. We also looked into your difficulty with swallowing with multiple studies. You still need your PEG tube at this time. You will follow up with ENT in order to continue evaluating your swallowing. Please notify your doctor if you develop new or concerning symptoms including but not limited to seizures. If you are unable to reach your primary provider, please go to the nearest emergency room or call EMS ([phone]). MEDICATIONS: A number of changes have been made to your medications as detailed below: Medication List START taking these medications divalproex sprinkle 125 MG capsule Commonly known as: Depakote Sprinkle 8 (eight) capsules by Enteral Tube route 2 times daily Replaces: divalproex DR 500 MG tablet CHANGE how you take these medications cloBAZam 20 MG tablet Commonly known as: Onfi 1 (one) tablet by Enteral Tube route 2 times daily What changed: medication strength how to take this lacosamide 200 MG tablet Commonly known as: Vimpat 1 (one) tablet by Enteral Tube route 2 times daily What changed: how to take this levETIRAcetam 1000 MG tablet Commonly known as: Keppra 2 (two) tablets by Enteral Tube route 2 times daily What changed: how to take this CONTINUE taking these medications acetaminophen 325 MG tablet Commonly known as: Tylenol Take 1 (one) tablet by mouth every 6 hours as needed for Fever or Pain artificial tears ophthalmic solution Instill 1 (one) drop into both eyes 3 times daily as needed aspirin 81 MG chew tablet Commonly known as: Aspirin Take 1 (one) tablet by mouth once daily atorvastatin 40 MG tablet Commonly known as: Lipitor 1 (one) tablet by Enteral Tube route once daily bisacodyl 10 MG suppository Commonly known as: Dulcolax Insert 1 (one) suppository into the rectum once daily as needed for Constipation folic acid 1 MG tablet Commonly known as: Folvite 1 (one) tablet by Enteral Tube route once daily polyethylene glycol 3350 17 g packet Commonly known as: Miralax Take 17 (seventeen) g by mouth once daily tamsulosin 0.4 MG capsule Commonly known as: Flomax Take 1 (one) capsule by mouth once daily At the same time every day after a meal. thiamine 100 MG tablet Commonly known as: Vitamin B-1 1 (one) tablet by Enteral Tube route once daily STOP taking these medications divalproex DR 500 MG tablet Commonly known as: Depakote Replaced by: divalproex sprinkle 125 MG capsule Where to Get Your Medications Information about where to get these medications is not yet available Ask your nurse or doctor about these medications cloBAZam 20 MG tablet divalproex sprinkle 125 MG capsule lacosamide 200 MG tablet levETIRAcetam 1000 MG tablet If you have any questions about your medications, please be sure to ask the pharmacy when you vegetable picker your prescription. You may also call your primary provider to ask if you should be taking your medication. FOLLOW-UP: It is important that you follow-up with all appointments that have been made on your behalf. These appointments include: Future Appointments Thursday May 19, 2022 4:00 PM Appointment with Fitz Byrnes at [facility] Pulmonary, Critical Care and Sleep Medicine ([phone]) [address] [place] [phone] Thursday August 11, 2022 9:00 AM Appointment with Yana Rm at [facility] Neurology ([phone]) [address] [place] [phone] As directed Outpatient Referral: Ref to ENT Otol[facility]ology - [facility] If a follow-up with your primary care provider has not been scheduled, please schedule an appointment to follow-up on your hospitalization. If there is a conflict, please call the clinic ahead of time and reschedule the appointment. Regards, Neurology Department [facility] F RISK OFFICER documented in this encounter Medications at Time [...] divalproex sprinkle (Depakote Sprinkle) 125 MG capsule 8 (eight) capsules by Enteral Tube route 2 times daily 05/14/2022 05/27/2022 docusate sodium (Colace) 150 MG/15ML solution Take [...] every day after a meal. 04/01/2022 06/15/2022 documented as of this encounter Progress Notes * Beba Ceron RN - 05/14/2022 5:53 PM CST Patient leaving now with EMS. F RISK OFFICER * Beba Ceron RN - 05/14/2022 5:53 PM CST Attempted to call report x2. Left on hold both times for 5+ minutes. F RISK OFFICER * Caio Oliveira - 05/14/2022 4:10 PM CST Facility Transfer Note Actual level of care at discharge: Penitentiary - Non Skilled Discharge Facility Information: [facility] ([address] [place] [address]) [place] Made Aware of Special Needs (if applicable): SHARON RN Call Report to: [phone] [facility] Nurse Fax D/C Orders to:[phone] Date/time of transfer: 05/14/2022 @ 6pm Transportation: [employer] Certificate of Medical Necessity rationale: Oropharyngeal dysphagia; Active Seizures; Fall/Aspiration precautions; The patient has the following conditions (supporting documentation is within the medical record): ?? Assistance: Max Assist (give more details); Returning to progressive care unit registered nurse care facility ?? Cognitive: Follows 1 step commands; Memory: Decreased short term memory;Decreased recall of biographical information;Decreased recall of recent events ?? Medical: Requires medical monitoring during trip and Seizures active and current; ?? Equipment: PEG Tube ?? Infection: None ?? Orthopedic Device: None Accepting MD and contact #: Dr. Balderas Completed and Signed [id number] (if applicable): SHARON Family/Other Notified of Transfer (name/phone): Authorization for Assisted Facility: NA Authorization for Transportation: NA Verified Qualifying Stay(Skilled Only): NOT APPLICABLE Comments: Pt needs discharge orders faxed to facility prior to discharge CLARITA Rico, [facility] Rep [phone] 05/14/2022 4:10 PM F RISK OFFICER * Crystal Cheema PT - 05/14/2022 3:47 PM CST [facility] Department of Physical Medicine & Rehabilitation Progress Note Patient: Mojgan Tabor [facility] Record Number: [id number] Date of : 1960 Age: [age] year old 05/14/22 1500 Missed Visit Missed Visit Procedure In Room (EEG being removed in room) F RISK OFFICER * Jose M Gomez RN - 05/14/2022 3:07 PM CST Case Management Progress Note Anticipated level of care at discharge: Penitentiary - Medicaid Discharge Plan: Will likely discharge to previous SNF when medically ready. Refer to SW notes for further details. Readmit Risk Score: Anticipated Discharge Date: Anticipated Discharge Date: 05/14/22 Patient/Family provided with list of resources? Unknown Preferred Provider / High Quality Network List given?: Unknown Reason for provider choice: Pt. choice - previous provider Transportation at Discharge: Ambulance Follow Up Appointment: Transportation to MD: Equipment at Home: Equipment at Home: Wheelchair-Standard;Walker-2 Wheeled;Prosthesis List DME patient requires but does not have: DME Provider: Hunger Screening: Within the past 12 months, you worried that your food would run out before you got the money to buymore.: Never true Within the past 12 months, the food you bought just didn't last and you didn't have money to get more.: Never true Medication affordability concerns: Auth Number (if required) NH: DME: Medications: Transportation: Name: Jose M Gomez RN Phone: [phone] F RISK OFFICER * Karime Echavarria MD - 05/14/2022 8:11 AM CST Images from the original note were not included. Neurology Progress Note Patient: Mojgan Tabor Room: 510 Age: [age] year old Subjective: Mojgan Tabor is a 62 year old male w/ PMHx of alcohol abuse (resolved 2016), Right occipital strokein 2015, HTN, HLD, prior head injury, cervical osteoarthritis, anxiety, Alzheimer's (early onset) and refractory epilepsy who presents from SNF d/t report of four seizures yesterday and two this morning. Neurology clinic was made aware and instructed patient to seek attention in the ED. No seizureswere noted in en route, per report. ??In ED, patient afebrile, hemodynamically stable, and satting well on room air. CMP and CBC unremarkable. CXR unremarkable. CTH negative for acute process. Was loaded with 2g keppra on arrival in ED. Placed on cEEG. Loaded w/ 1g valproic acid and home ASM started (via PEG). cEEG on 05/11-05/12 w/ epileptiform discharges over the right parietal and right fronto-temporal region, lateralized right hemispheric slowing, and??generalized slowing. Speech consulted for dysphagia (given would like to switch meds to PO) and MBS done 05/12 which showed esophageal retention of all trials. TFs started. GI consulted and no repeat endoscopy recommended. ENT consulted. cEEG on 05/12-05/13 showed??right centro-parietal onset seizure,??epileptiform discharges over the right parietal and right fronto-temporal region, lateralized right hemispheric slowing, and??generalized slowing. Valproic acid level 05/13 was 54. Overnight: -Patient alert this morning. AOx4. -Patient continues to endorse improvement. -ENT consulted yesterday for Zenker's diverticulum. They performed laryngoscopy which showed no obvious diverticulum, pooling of secretions in the piriforms, and posterior glottic scar. Objective: BP 143/82 Pulse 73 Temp 98 ??F (36.7 ??C) (Oral) Resp 29 Ht 1.727 m (5' 8 ) Wt 59.5 kg (131 lb 2.8 oz) SpO2 99% Temp (30hrs) Max:98 ??F (36.7 ??C) Body mass index is 19.94 kg/m??. Exam: General: Con - NAD, AOx4 Cortical Function Mental Status Awake, alert, follows commands Orientation Person, place, time, and situation Language Fluency intact, comprehension intact, repetition intact Visual Ivan L hemianopia present Neglect L hemianopia present. no tactile neglect noted Cranial Nerves II Pupils 3 mm and bilaterally reactive to light. Fundoscopic exam not performed. VIII Deferred. III/IV/ Extraocular muscles intact. No diplopia, ptosis, [...] 5/5 5/5 5/5 Left 5/5 5/5 5/5 n/a Muscle Stretch Reflexes BI TRI BR PAT ACH TOES Right 2 2 2 2 2 Down Left 2 2 2 n/a n/a n/a Patient w/ left AKA. Sensory Light Touch Symmetric and intact bilaterally Noxious Stimuli Not tested Temperature Not tested Pallesthesia Not tested Cerebellar FNF intact bilaterally. Gait Deferred Labs: Recent Labs Component Name 05/14/2230905/13/22 0705/12/22313 WBC 4.5 4.5 6.4 RBC 3.67* 3.80* 3.48* HGB 12.0 12.3 11.4* HCT 36.2 36.9 33.9* Recent Labs Component Name 05/14/22 03105/13/22 0724 05/12/22 0314 NA 143 139 142 CL 110* 109* 111* CO2 26 25 26 BUN 12 9 6* CREATININE 0.62* 0.48* 0.51* CALCIUM 8.9 9.1 8.3* No results for input(s): MG in the last 47782 hours. Recent Labs Component Name 05/14/22 03105/13/22 0724 05/12/22 0314 PHOS 3.0 2.7* 2.8 Recent Labs Component Name 05/11/22 1309 03/11/22 1059 03/05/22 1110 PT 13.5 15.4* 13.4 INR 1.0 1.2 1.0 No results for input(s): A1C in the last 12482 hours. Recent Labs Component Name 04/11/15 0622 CHOL 196 HDL 81 LDLCALC 102* TRIG 63 Recent Labs Component Name 05/15/19 1652 TSH 1.344 Recent Labs Component Name 05/11/22 1833 05/11/22 1606 03/08/22 2137 03/08/22 1455 12/31/21 0412 02/25/21 1134 05/15/19 0911 05/13/19 2030 01/24/19 0154 CKTOTAL - - - - 77 - 63 - 127 TROPONINI <0.010 <0.010 0.016 - - - <0.010 - - - = values in this interval not displayed. Assessment and Plan: #Refractory Epilepsy -onset of seizures likely 2/2 subtherapeutic ASM levels; less likely 2/2 compliance vs infection vsmetabolic -follows w/ neurology here; recently seen 05/06 and had no reported seizure events from facility at that time; stated he should continue current regimen at that time -day prior to admission patient switched meds from PEG tube to oral 2/2 concern for adequate absorption -patient has history of some issues w/ compliance but has had breakthrough seizures in past when good compliance with medications and therapeutic ASM levels -onset of seizures at age 31 & has two types: type #1 brief staring events and ??type #2 being generalized convulsive events -CXR, UA & COVID negative -s/p 2g keppra load by ED -s/p 1g load of valproic acid -CTH w/o acute process -cEEG on 05/11-05/12 w/ epileptiform discharges over the right parietal and right fronto-temporal region, lateralized right hemispheric slowing, and generalized slowing -cEEG on 05/12-05/13 showed right centro-parietal onset seizure, epileptiform discharges over the right parietal and right fronto-temporal region, lateralized right hemispheric slowing, and generalized slowing -valproic acid level 05/13 of 54 Plan: -will discontinue cEEG today given no recent seizures seen on cEEG -continue home meds via PEG: levetiracetam 2000mg BID, lacosamide 200mg BID, and clobazam 20mg BID -yesterday formulation of valproic acid was switched to depakote sprinkle 1000mg BID; will continuethis at this time -please keep Mg level >2 -seizure precautions #Dysphagia #Oropharyngeal Diverticulum -patient w/ history of dysphagia and had PEG tube placed in 02/2022 -speech following; MBS done 05/12 which showed esophageal retention of all trials -GI consulted and do not recommend repeat endoscopic eval -ENT performed laryngoscopy on 05/13 which showed no obvious diverticulum, pooling of secretions inthe piriforms, and posterior glottic scar Plan: -keep NPO at this time w/ ice chips -TF per nutrition recs; switched from continuous to bolus today -ENT following, appreciate recs -esophogram ordered #Hx R Occipital stroke -occurred in 2014 -continue home ASA 81mg daily + atorvastatin 40mg daily -PT/OT Discussed Assessment and Plan with Attending Physician Dr. Carl, This progress note will not be considered final without the attestation of attending physician. Karime Echavarria MD Internal Medicine, PGY-3 [facility] F RISK OFFICER Associated attestation - Baldev Carl MD - 05/14/2022 11:42 AM CHIEF RISK OFFICER NEUROLOGY ATTENDING NOTE The patient seen and examined with medical students and residents, I reviewed the history on rounds,examined and discussed with medical students and residents on General Neurology Team. I have reviewed and agree with attached note except as noted below: Summary: Patient is 62 year old male with a history of right occipital stroke, prior head injuries we have been seeing for seizures. The patient is doing well on his current medications. No seizures have beenreported. Continuous EEG report from today is pending. If its negative for seizure activity then wemay discontinue the continuous EEG. ENT is following the patient for dysphagia. GI is also seen thepatient. The patient is receiving his medications through PEG tube. He is also on tube feedings. Current Facility-Administered Medications Medication Dose Route Frequency Provider Last Rate Last Admin 0.9% NaCl injection 3 mL 3 mL Intracatheter q8h Roxanna Merida MD 3 mL at 05/14/22 0535 And 0.9% NaCl injection 1-10 mL 1-10 mL Intracatheter PRN Roxanna Merida MD artificial tears ophthalmic solution 1 drop 1 drop Each Eye TID PRN Karime Echavarria MD aspirin chew tablet 81 mg 81 mg Enteral Tube QDAY Karime Echavarria MD 81 mg at 05/14/22 0825 atorvastatin (Lipitor) tablet 40 mg 40 mg Enteral Tube QDAY Karime Echavarria MD 40 mg at 05/14/22 0826 cloBAZam (Onfi) tablet 20 mg 20 mg Enteral Tube BID Roxanna Merida MD 20 mg at 05/14/22 0825 dextrose 10 % IV bolus 12.5 g Intravenous PRN Roxanna Merida MD Or dextrose 10 % IV bolus 25 g Intravenous PRN Roxanna Merida MD divalproex sprinkle (Depakote Sprinkle) capsule 1,000 mg 1,000 mg Enteral Tube BID Karime Echavarria MD 1,000 mg at 05/14/22 0825 folic acid (Folvite) tablet 1 mg 1 mg Enteral Tube QDAY Karime Echavarria MD 1 mg at 05/14/22 0826 glucagon (Glucagen) injection 1 mg 1 mg Subcutaneous PRN Roxanna Merida MD glucose (Diabetic Use) (Dex4 Glucose) oral liquid Oral PRN Roxanna Merida MD glucose (Diabetic Use) oral gel Oral PRN Roxanna Merida MD glucose chew tablet 4 tablet 16 g Oral PRN Roxanna Merida MD heparin injection 5,000 Units 5,000 Units Subcutaneous q8h Roxanna Merida MD 5,000 Units at 05/14/22 0535 lacosamide (Vimpat) tablet 200 mg 200 mg Enteral Tube BID Roxanna Merida MD 200 mg at 05/14/22 0825 levETIRAcetam (Keppra) tablet 2,000 mg 2,000 mg Enteral Tube BID Roxanna Merida MD 2,000 mg at 05/14/22 0825 magnesium sulfate 4 g in 100 mL bolus 4 g Intravenous Once Karime Echavarria MD 25 mL/hr at 05/14/22 1045 Rate Verify at 05/14/22 1045 tamsulosin (Flomax) capsule 0.4 mg 0.4 mg Oral AT BEDTIME Karime Echavarria MD 0.4 mg at 05/13/222036 thiamine (Vitamin B-1) tablet 100 mg 100 mg Enteral Tube QDAY Karime Echavarria MD 100 mg at 05/14/22825 Allergies Allergen Reactions Clonazepam Psychiatric hallucinations Past Medical History: Diagnosis Date CVA (cerebral vascular accident) (CMS/HCC) HTN (hypertension) Seizure (CMS/HCC) Past Surgical History: Procedure Laterality Date ENDOSCOPY, UPPER N/A 03/25/2022 N/A; ESOPHAGOGASTRODUODENOSCOPY (EGD) DIAGNOSTIC with PEG Placement Leg Amputation, Below Knee Left 03/15/2022 Left; LEFT BKA POSS AKA Social History Tobacco Use Smoking status: Former Packs/day: 1.00 Years: 15.00 Pack years: 15.00 Types: Cigarettes Smokeless tobacco: Never Vaping Use Vaping Use: Never used Substance Use Topics Alcohol use: No Comment: last drink 2015 Drug use: No Comment: occasional Exam findings Vitals: 05/13/22 0739 05/13/22 1636 05/13/22 1955 05/14/22 0009 BP: 137/84 142/83 139/78 143/82 Pulse: 73 70 78 73 Resp: 20 20 29 Temp: 97.6 ??F (36.4 ??C) 97.5 ??F (36.4 ??C) 97.7 ??F (36.5 ??C) 98 ??F (36.7 ??C) SpO2: 97% 100% 100% 99% Weight: Height: Awake and alert Left to mom's hemianopia Extraocular movements intact Moves all extremities, amputation left lower extremity PEG in place Please see attached note for details on labs, radiology and ancillary testing. Lab Review Recent Labs Component Name 05/14/2230905/13/2224 05/12/22313 WBC 4.5 4.5 6.4 HGB 12.0 12.3 11.4* HCT 36.2 36.9 33.9* PLTCOUNT 159 147* 144* Recent Labs Component Name 05/14/22309 POTASSIUM 4.2 CO2 26 BUN 12 CREATININE 0.62* GLUCOSE 97 CALCIUM 8.9 ALKPHOS 77 ALT 10 AST 22 EGFR >90 Recent Labs Component Name 04/11/15 0622 CHOL 196 TRIG 63 HDL 81 LDLCALC 102* Recent Labs Component Name 05/12/22 0314 01/01/22 0349 05/12/19 0542 HGBA1C 4.4 5.6 5.5 Medical Decision Making: IMPRESSION/PLAN Active Hospital Problems Diagnosis Date Noted Seizures ([facility]) 08/13/2020 Priority: Not Prioritized Continue current seizure medications. Appreciate GI and ENT's evaluation the patient. May benefit from esophagram to evaluate dysphagia. The patient was found to have left carotid stenosis. Have asked the stroke physicians for comment on this. Continue tube feedings for now. Change to bolus tube feedings per dietary recommendation. Working on disposition to SNF. Time Spent in direct patient care: 35 minutes * Crystal Hickey - 05/14/2022 7:14 AM CST General Neurology Progress Note Mojgan Tabor Age: [age] year old Date of : 1960 Date of Admission: 05/11/2022 Hospital Day: 3 Subjective Brief HPI: Mojgan Tabor is a 62 year old male with a PMH of refractory epilepsy followed by [facility], prior head trauma, CVA (2014), HTN, HLD, alcohol abuse (resolved 2015), early-onset alzheimer's, PVD s/p L AKA 03/15/22, and PEG tube dependence since 03/25/2022 who presented on 05/11 due to increased seizure activity, with 6 seizures reported prior to presentation. In the ED, patient was afebrile, hemodynamically stable, and sat'ing appropriately on room air. CMP, CBC, VBG, and CXR were unremarkable. CT head demonstrated no acute intracranial abnormalities and no significant changes from prior. Patient was loaded with 2g keppra on arrival. He was placed on seizure precautions with continuous EEG and home medications were initiated via IV and PEG. Barium swallow was performed on 05/11 which was significant for poor swallowing due to prior CVA and refractory epilepsy. He remains NPO with TPN feeds via peg tube. GI and ENT were consulted for concern for Zenker diverticulum. Endoscopic laryngoscopy on 05/13 demonstrated no obvious diverticulum. On 05/12, patient had an electrographic seizure at 5:10 pm with sharp and slow wave complexes identified in right parietal and right fronto-temporal region with correlating tonic flexion of the left hand and left head turning. Unknown duration but reportedly brief. No interventions performed. Interval History: - No acte events overnight - AOx4, afebrile and hemodynamically stable on continuous EEG monitoring - Mental status stable; patient is awake, alert, and cooperative with exam - Continuing to tolerate TPN feeds and maintenance fluids - Denies pain, current headache, nausea, or vomiting Objective Patient Vitals for the past 24 hrs: BP Temp Temp src Pulse Resp SpO2 05/14/22 0009 143/82 98 ??F (36.7 ??C) Oral 73 29 99 % 05/13/22 1955 139/78 97.7 ??F (36.5 ??C) Oral 78 20 100 % 05/13/22 1636 142/83 97.5 ??F (36.4 ??C) Axillary 70 20 100 % 05/13/22 0739 137/84 97.6 ??F (36.4 ??C) Oral 73 -- 97 % Intake/Output Summary (Last 24 hours) at 05/14/2022 0715 Last data filed at 05/14/2022 0533 Gross per 24 hour Intake 1098 ml Output 1450 ml Net -352 ml Exam: Limited by patient compliance Cortical Function Mental Status Awake, alert, follows commands Orientation Person, place, time, and situation Language Fluency intact, comprehension intact Visual Ivan Left hemianopia congruent with prior right occipital infarct Neglect No visual neglect noted, no tactile neglect noted Cranial Nerves II Pupils 3 mm and bilaterally reactive to light. Fundoscopic exam not performed. VIII Hearing intact bilaterally III/IV/ Extraocular muscles intact. Irregular eye tracking. No diplopia, ptosis, nystagmus or convergence abnormalities noted. IX/X Palate symmetrically elevated. V Facial sensation symmetric to light touch and intact bilaterally. Corneal reflex not examined. XIHead turning and shoulder shrug are intact. VII No facial palsy noted. XII Tongue is midline with normal movements and no atrophy noted Motor Function Movement No abnormalities noted Bulk No abnormalities noted Tone No abnormalities noted Proximal Upper Distal Upper Proximal Lower Distal Lower Right 5/5 5/5 5/5 5/5 Left 5/5 5/5 3/5 N/A Muscle Stretch Reflexes BI TRI BR PAT ACH TOES Right 2 deferred 2 2 1 Neutral Left 2 deferred 2 N/A N/A N/A Sensory Light Touch Symmetric and intact bilaterally Noxious Stimuli Symmetric and intact bilaterally Temperature Not tested Pallesthesia Not tested Cerebellar FNF Right Intact Left Intact Gait Deferred Labs: Valproic Acid Level: 54 on 05/13/22 Recent Labs Component Name 05/14/22 0310 05/13/22 0724 05/12/22 0314 WBC 4.5 4.5 6.4 RBC 3.67* 3.80* 3.48* HGB 12.0 12.3 11.4* HCT 36.2 36.9 33.9* Recent Labs Component Name 05/14/22 0310 05/13/22 0724 05/12/22 0314 NA 143 139 142 CL 110* 109* 111* CO2 26 25 26 BUN 12 9 6* CREATININE 0.62* 0.48* 0.51* CALCIUM 8.9 9.1 8.3* No results for input(s): MG in the last 79252 hours. Recent Labs Component Name 05/14/22 0310 05/13/22 0724 05/12/22 0314 PHOS 3.0 2.7* 2.8 Recent Labs Component Name 05/11/22 1309 03/11/22 1059 03/05/22 1110 PT 13.5 15.4* 13.4 INR 1.0 1.2 1.0 No results for input(s): A1C in the last 51372 hours. Recent Labs Component Name 04/11/15 0622 CHOL 196 HDL 81 LDLCALC 102* TRIG 63 Recent Labs Component Name 05/15/19 1652 TSH 1.344 Recent Labs Component Name 05/11/22 1833 05/11/22 1606 03/08/22 2137 03/08/22 1455 12/31/21 0412 02/25/21 1134 05/15/19 0911 05/13/19 2030 01/24/19 0154 CKTOTAL - - - - 77 - 63 - 127 TROPONINI <0.010 <0.010 0.016 - - - <0.010 - - - = values in this interval not displayed. 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 1. No acute intracranial abnormality. 2. No significant change since 03/17/2022. > Interpreting Provider: Latrice Ortiz MD on 05/11/2022 3:37 PM EEG 05/11- 05/12: IMPRESSION This is an abnormal cEEG due to 1) epileptiform discharges over the right parietal and right fronto-temporal region, 2) lateralized right hemispheric slowing, and 3) generalized slowing. ?? CLINICAL CORRELATION: Between 05/11/2022 to 05/12/2022, this study was suggestive of an increased tendency towards seizures, lateralized right hemispheric dysfunction, and mild encephalopathy. > Interpreted by Ck Lorenzo MD EEG 05/12-05/13: IMPRESSION This is an abnormal cEEG due to 1) right centro-parietal onset seizure, 2) epileptiform discharges over the right parietal and right fronto-temporal region, 3) lateralized right hemispheric slowing, and 4) [...] lateralized right hemispheric dysfunction, and mild encephalopathy. >Interpreted by Ck Lorenzo MD Assessment Mojgan Tabor is a 62 year old male with a PMH of refractory epilepsy followed by [facility] Neurology, priorhead trauma, early onset Alzheimer's, CVA (2014), alcohol abuse (resolved 2016), HTN. HLD, PVD s/p L AKA (02/2022) and PEG tube dependence since 03/25/2022 who presented on 05/11 with breakthrough seizures in the setting of subtherapeutic antiepileptic levels. His refractory epilepsy is most likelydue to malabsorption of antiepileptics from enteral administration given timing of decrease in levels after placement of PEG tube. Non-compliance is less likely due to prior appropriate ASM levels and SNF management of medicine. An infectious cause is also less likely due to lack of fever; pending UA and respiratory panel. A metabolic cause can also be considered due to recent AKA and PEG tube placement, but this is less likely due to normal CMP. Given no acute changes in CT head, a vascular cause for increased seizure activity is low on the differential. Patient's mental status appears to beimproving on enteral ASM medications with occasional continued breakthrough seizures. ?? #Refractory Seizure - Recently seen at Epilepsy clinic on 05/06 with no reported seizure events from SNF at that time and continued current ASM regimen - Has history of noncompliance, but has recently been compliant with medications demonstrated by therapeutic ASM levels and improved management of medications - cEEG 05/12 abnormal with epileptiform discharges over the right parietal and right fronto-temporal region, lateralized right hemispheric slowing, and generalized slowing - cEEG 05/13 abnormal with one right centro-parietal onset seizure and conjugate tonic flexion of the left hand and non-versive leftward head turn. - Valproic acid level 54 from 29 after 1g IV load and enteral valproic acid administration - CT head 05/11 significant for diffuse cerebral atrophy with multiple old infarcts located in R medial occipital lobe in [employer] territory, L cerebellum, L para-midline isabella, bilateral thalami, and L basal ganglia. No acute processes. - CXR, Respiratory panel, and Urinalysis negative - s/p 2g keppra load by ED - s/p 1g load of Valproic Acid IV Recommendations: - EEG discontinued - NPO due to concern for swallowing difficulty - Home ASM through PEG: - Valproic Acid Enteral solution 1000 mg BID and 500 mg enteral at 1500 daily - Levetiracitam Enteral 2000 mg BID - Lacosamide Enteral 200 mg BID - Clobazam Enteral suspension 20 mg BID - Continue all home medications: - Artificial tears ophthalmic solution TID - Aspirin 81 mg Enteral daily - Atorvastatin 40 mg Enteral daily - Folic acid 1 mg Enteral daily - Tamsulosin 0.4 mg Enteral at Bedtime - Thiamine 100 mg Enteral daily - Seizure precautions - Fall precautions - PT/OT - If Mg <2, administer 4g Mg IV bolus - Anticipate discharge to SNF tomorrow, pending ENT imaging - Social work and case management following #Dysphagia - Currently NPO; was receiving Jevity tube feeds at night at 65 cc/hr from 6pm- 6am and tolerates a PO regular pureed diet during the day. He has to sit up for 1 hour following meals due to Zenker diverticulum which was found on prior barium swallow study. - Barium swallow and [employer] evaluation 05/12 demonstrated moderately severe oropharyngeal dysphagia. Patient is not a candidate for oral intake at this time. Continued speech therapy and non-oral feeding recommended - Endoscopic laryngoscopy on 05/13 significant for overall adequate and symmetric cord mobility with no obvious diverticulum - Tolerating TPN feeds at goal rate of 60 ml/hr Recommendations - NPO diet with Enteral medicine administration - TPN feeds per Nutrition and GI recommendations - ENT following, appreciate recommendations - Formal esophagram for continued ENT workup - Continue Speech therapy #Left ICA Stenosis - CT angio brain & neck 12/29 significant for 70% stenosis of L ICA due to atherosclerotic plaqueat bifurcation, stable from prior - CT head 05/11 significant for diffuse cerebral atrophy with multiple old infarcts located in R medial occipital lobe in [employer] territory, L cerebellum, L para-midline isabella, bilateral thalami, and L basal ganglia. - Patient has history of R [employer] stroke in 2014 - Physical exam pertinent for left hemianopia consistent with prior R occipital infarct Recommendations - Neurovascular consulted to discuss necessity of intervention for carotid stenosis at this time, will follow up - Home ASA 81 mg and Atorvastatin 40 mg Case findings discussed with , Attending physician. Crystal Hickey MS3, SLUSOM F RISK OFFICER Associated attestation - Badlev Carl MD - 05/14/2022 11:21 AM CHIEF RISK OFFICER NEUROLOGY ATTENDING This is a Medical Student Note for educational purposes only. Please see my addendum to resident note from today. * Caio Oliveira - 05/13/2022 12:45 PM CST Chart review Rec'd call from physician Pt will be medically ready to return to prior facility 05/14 EMS tentatively arranged for 6pm Pt can return to [facility] [place] CLARITA Rico, PRACHI Center Rep [phone] 05/13/2022 12:46 PM F RISK OFFICER * Mandi Hamilton OT - 05/13/2022 10:56 AM CST [facility] Physical Medicine and Rehabilitation Occupational Therapy Initial Evaluation Note Patient: Mojgan Tabor [facility] Record Number: [id number] Date of : 1960 Age: [age] year old PPE worn by staff: gloves;mask - procedural [place] with PT due to skilled level of assist required. Discharge Recommendation: Patient will benefit from multidisciplinary [...] Treat Activity Level: up ad daniela PRECAUTIONS: seizure, falls DIAGNOSIS: Patient Active Problem List: Seizure (CMS/HCC) [...] artery disease) (CMS/HCC) Protein calorie malnutrition (CMS/HCC) Past Medical History: Diagnosis Date ??? CVA (cerebral vascular accident) (CMS/HCC) ??? HTN (hypertension) ??? Seizure (CMS/HCC) SUBJECTIVE: Subjective: Pt agreeable to therapy. PATIENT GOALS: get stronger Home Situation: [facility] of Residence[facility] (reports being at SNF for ~6 months; was living with sister prior to that, per pt) Home Structure: One Story Equipment at Home: Wheelchair-Standard;Walker-2 Wheeled;Prosthesis Prior Level of Functioning: Mobility: With Assistive Device Have Help at Home?: Yes, there is help at home now Oxygen at Home: No Activity at Home: Sedentary Vision: No impairment Hearing Exceptions: No impairment Who manages medications?: (LTC facility) Pt reports ambulating with LLE prosthesis and WW; pt is questionable historian. Pain Assessment: Pain Rating Score #: 0 Follow-up for pain: No follow-up for pain indicated and patient agreed to proceed with treatment OBJECTIVE: At start of therapy session, patient found in bed General Appearance: sleeping in bed LDA: IV's: Peripheral line, Catheter, Telemetry and cont EEG Edema: No edema noted Vitals: (*Assess the 3 levels of oxygen saturations both for room air and 02 unless rest on room air is 88% or less). Rest BP: 134/86 HR: 72 Sp02 Sp02 98% Room Air L O2 Ex/Gait/Activity Without 02 BP: HR: Sp02 Room Air Post Activity BP: HR: Sp02 Sp02 L O2 Room Air Observations: NAD during mobility Mental Status/Cognition: Level of Consciousness-Adult: Drowsy Orientation Level: Oriented to Person;Oriented to Place;Oriented to Time;Disoriented to Situation (loosely to time; able to state his birthday accurately) Cognition: Processing-delayed;Follows Commands-inconsistent;Memory impairment- short term UE ROM: RUE: AROM WFL LUE: PROM WFL Strength: RUE: WFL LUE: deficits noted; grossly 2+/5 UE Tone RUE: no abnormal tone noted LUE: no abnormal tone noted Coordination: deficits noted in rapid alternating movement , R hand intact, L hand impaired UE Proprioception RUE: WFL LUE: WFL UE Sensation RUE: intact LUE: intact Perception: WFL Visual/Motor WFL Mobility: A gait belt and non-slip socks were used for all out of bed activity this date. Bed Mobility: Rolling: Maximal Assistance to Right Supine to Sit: Maximum Assistance;X 2 with HOB in semi-fowlers position Sit to Supine: Maximum Assistance;X 2 Transfers: Sit to Stand: Activity Does Not Occur (unable to progress to standing due to poor sitting balance) Balance: Sitting - Static: Poor + Sitting - Dynamic: Poor, posterior lean Activities of Daily Living Oral Facial Hygiene: Minimal Assistance (to wipe face) Bathing: Activity Does Not Occur Upper Body Dressing: Maximal Assistance (to adjust gown) Lower Body Dressing: Total Assistance Toileting: Total Assistance (paredes) Splint Issued/Checked: none ACTIVITY TOLERANCE: Patient's activity tolerance: fair. Modified [place]: 4 TREATMENT / EDUCATION / INTERVENTIONS: While performing OT, Patient was instructed in:functional mobility training, self-care training, energy conservation, safety awareness/fall precautions , use ofadaptive equipment, discharge planning, use of call light Presented to patient who demonstrates Fair understanding of instructions given. INFORMED CONSENT TO TREATMENT: Plan of care including recommended therapy, goals and frequency, discussed with patient who understands and agrees to proceed. ASSESSMENT: Functional performance limited due to: limited activities of daily living, decreased functional mobility, decreased functional balance, upper extremity functional impairments and decreased endurance and activity tolerance. Patient continues to benefit from skilled Occupational Therapy to achieve the following functional goals. Short Term Goals: Goal Formation With patient Patient will perform grooming at edge of bed and with moderate assist Patient will perform upper extremity dressing with moderate assist Patient will perform supine to/from sit with moderate assist Patient will perform bed to chair with moderate assist Residential Goal(s): Patient to discharge to appropriate next level of inpatient care. Plan: Plan: ADL training Adaptive equipment training Cognitive stimulation Functional transfer training Functional balance training Endurance training Bed mobility training Energy conservation techniques If patient is discharged from the facility, this note serves as a discharge summary if further occupational therapy visits did not occur. Refer to filed flowsheet for further details. Following therapy session, patient left in bed, with call light within reach. F RISK OFFICER * Crystal Cheema, PT - 05/13/2022 10:52 AM CST [facility] Physical Medicine and Rehabilitation Physical Therapy Initial Evaluation Note Patient: Mojgan Tabor [facility] Record Number: [id number] Date of : 1960 Age: [age] year old PPE worn by staff: gloves;mask - procedural PPE worn by patient: gown - patient, clean;socks - clean (R sock, stump clin asst on left AKA) Tech:Co-eval with OT Discharge Recommendation: Patient will benefit from multidisciplinary [...] and Treat PRECAUTIONS: Weight Bearing Status: (no restrictions) Activity Level: (up with assist only) Other Precautions: fall/seizure DIAGNOSIS: Patient Active Problem List: Seizure (CMS/HCC) Cerebrovascular accident ([facility]) Hyperlipidemia Hypertension Insomnia Low back pain Osteoporosis Truncal ataxia Therapeutic procedure Seizures ([facility]) Alcohol abuse, uncomplicated Benign neoplasm of prostate Epilepsy, unspecified, not intractable, without status epilepticus ([facility]) Difficulty in walking, not elsewhere classified Muscle weakness (generalized) Other specified rheumatoid arthritis, unspecified site ([facility]) Syncope and collapse Alzheimer's disease with early onset ([facility]) Cognitive communication deficit COVID-19 Dysphagia, oropharyngeal phase Hemiplegia and 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- dominant side ([facility]) History of CVA (cerebrovascular accident) Paroxysmal tachycardia, unspecified ([facility]) Status epilepticus ([facility]) Acute encephalopathy Sepsis without acute organ dysfunction ([facility]) Bacteremia Ulcer of left foot ([facility]) PAD (peripheral artery disease) ([facility]) Protein calorie malnutrition ([facility]) Past Medical History: Diagnosis Date ??? CVA (cerebral vascular accident) ([facility]) ??? HTN (hypertension) ??? Seizure ([facility]) SUBJECTIVE: Subjective: pt agreeable for therapy/ staes uses w/w and prosthesis and w/c PATIENT GOALS: Patient's Primary Concern: I'm cold , reports gets hot when has seizures Home Situation: Type of Residence: [facility] (reports being at SNF for ~6 months; was living with sister prior to that, per pt) Lives with:: Other (Comment) (LTC Residents) Handrails: Outdoor Home Structure: One Story Equipment at Home: Wheelchair-Standard;Walker-2 Wheeled;Prosthesis Prior Level of Functioning: Mobility: With Assistive Device Fallen Within 6 Mos: (reports yes) Have Help at Home?: Yes, there is help at home now Who assists you at home?: Staff How often is assistance provided?: daily Level of Help Sufficient?: Yes Oxygen at Home: No Activity at Home: Sedentary Vision: No impairment (glasses but not present) Hearing Exceptions: No impairment Who manages medications?: staff Pain Assessment: Pain Rating Score #: 0 Follow-up for pain: No follow-up for pain indicated and patient agreed to proceed with treatment ?? OBJECTIVE: At start of therapy session, patient found in bed General Appearance: sleeping in bed LDA: IV's: Peripheral line, Catheter, Telemetry and cont EEG Edema: No edema noted ?? Vitals: (*Assess the 3 levels of oxygen saturations both for room air and 02 unless rest on room air is 88% or less). Rest BP: ? 134/86 HR: 72 Sp02 ?? Sp02 98% Room Air ?? L O2 ? Ex/Gait/Activity Without 02 BP: ?? HR: ?? Sp02 ?? Room Air ?? Post Activity BP: ?? HR: ?? Sp02 ?? Sp02 ?? L O2 ?? Room Air ?? Observations: NAD during mobility Mental Status/Cognition: Level of Consciousness-Adult: Alert Orientation Level: Oriented to Person;Oriented to Place;Oriented to Situation;Disoriented to Time Cognition: Processing-delayed;Follows one step commands Attention Span: Attends with cues to redirect Memory: Decreased short term memory;Decreased recall of biographical information;Decreased recall of recent events Following Commands: Follows one step commands with repetition/cues Safety Judgement: Decreased awareness of need for assistance Awareness of Errors: Assistance required to correct errors made;Assistance required to identify errors made Problem Solving: Assistance required to implement solutions;Assistance required to identify errors made ROM: RLE: AROM WFL LLE: left AKA hip is WFL Strength: RLE:WNL LLE: at least 3/5 hip Tone: RLE: no abnormal tone noted LLE: no abnormal tone noted Coordination: RLE: WNL LLE: unable for heel-francisco due to AKA Sensation: RLE: intact, no complaints of numbness or tingling LLE: diminished light touch sensation Perception: Inattention/Neglect: Other (Comment) (pt makes eye contact intermittently/ unresponsive verbally attimes) Visual/Motor Tracking: Unable to test secondary due to decreased visual attention Mobility: A gait belt and non-slip socks were used for all out of bed activity this date. Bed Mobility: Rolling: Maximal Assistance to Right Supine to Sit: Maximum Assistance;X 2 with HOB in semi-fowlers position Sit to Supine: Maximum Assistance;X 2 Transfers: Sit to Stand: Activity Does Not Occur (unable to progress to standing due to poor sitting balance) Gait: Weight Bearing Status: (no restrictions) Balance: Balance Scales/Tests Used: Sitting: Static/Dynamic Sitting - Static: Poor + Sitting - Dynamic: Poor retro lean ACTIVITY TOLERANCE: Patient's activity tolerance: fair TREATMENT/INTERVENTIONS: evaluation, ROM , bed mobility training, balance activities and monitoringof vitals Modified [place]: Current Modified Florentino Score: 4 EDUCATION: While performing PT, Patient was instructed in:functional mobility training, energy conservation, safety awareness/fall precautions , home exercise program, discharge planning, use of calllight, progression of therapy Presented to patient who demonstrates Fair understanding of instructions given. INFORMED CONSENT TO TREATMENT: Plan of care including recommended therapy, goals and frequency, discussed with patient who understands and agrees to proceed. ASSESSMENT: Patient would benefit from additional Physical Therapy sessions to achieve the following functionalgoals to enhance independence. Short Term Goals: Goal Formation With patient Patient will perform bed mobility with minimal assist and X 1 Patient will transfer sit to/from stand with moderate assist and X 1 Patient will transfer bed to/from chair with moderate assist and X 1 sit EOB with good balance R foot on floor Technology Support Analyst Goal(s): Patient to discharge to appropriate next level of inpatient care. Equipment Issued: gait belt Plan: Plan: Transfer training Endurance training Bed [...] , with call light within reach, with Herb SIMON aware, with therapy cues visible on white board, siderails up with seizure pads in place and cont EEG with video monitor in place. F RISK OFFICER * Jose M Gomez RN - 05/13/2022 10:39 AM CST Case Management Initial Assessment Case Management screen completed Anticipated Discharge Date: 05/17/22 Transportation at Discharge: Ambulance Anticipated level of care at discharge: [facility] - [facility] Anticipated level of care provider: None Prior to admission level of care: [facility]itentiary - Medicaid Prior to admit provider: None Discharge Goals and Plans: Plans: Discharge needs identified. See progress notes for details. Case Management to follow for discharge planning. Readmit Risk Score: na Comments: Discharge needs pending response to clinical treatment and therapies recommendations. Pt is a resident at [facility]. Lives with: Other (Comment) ([facility] Residents) Physical Limitations: Wheelchair Bound Requires Assistance With: Mobility;Dressing;Toileting;Hygiene;Transfers;Housekeeping;Shopping;Medication Administration;Meal Preparation Insurance: Payer/Plan Subscriber Name Rel Member # Group # [facility] * MOJGAN TABOR Self [id number] [address] Readmission: Met with patient and chart review Family Support (name and phone): Extended Emergency Contact Information [place] Emergency Contact: [place] Relation: Sister Lever Operator needed? No Secondary Emergency Contact: Amarjit Tabor [facility] Relation: Brother Patient or retail account representative requests care coordination reach out to family or caregiver listed above regarding discharge planning and at time of discharge? No Patient/Family provided with list of resources? Unknown Preferred Provider / High Quality Network List given?: Unknown Reason for provider choice: Unknown Equipment at Home: Equipment at Home: Wheelchair-Standard Additional equipment needed at home but does not have: Center Rep Referral: Yes Will continue to follow. For any questions or needs please contact: Tail Edger Name/Phone number: Jose M Gomez RN [phone] F RISK OFFICER * Karime Echavarria MD - 05/13/2022 8:36 AM CST Images from the original note were not included. Neurology Progress Note Patient: Mojgan Tabor Room: 510 Age: [age] year old Subjective: Mojgan Tabor is a 62 year old male w/ PMHx of alcohol abuse (resolved 2015), Right occipital strokein 2014, HTN, HLD, prior head injury, cervical osteoarthritis, anxiety, Alzheimer's (early onset) and refractory epilepsy who presents from SNF d/t report of four seizures yesterday and two this morning. Neurology clinic was made aware and instructed patient to seek attention in the ED. No seizureswere noted in en route, per report. ??In ED, patient afebrile, hemodynamically stable, and satting well on room air. CMP and CBC unremarkable. CXR unremarkable. CTH negative for acute process. Was loaded with 2g keppra on arrival in ED. Placed on cEEG. Loaded w/ 1g valproic acid and home ASM started (via IV and PEG). Overnight: -Patient more alert this morning. AOx4. -States that he feels better this morning. -cEEG showed right centro-parietal onset seizure, epileptiform discharges over the right parietal and right fronto-temporal region, lateralized right hemispheric slowing, and generalized slowing -MBS done yesterday which showed esophageal retention of all trials. Patient kept NPO and TF started. GI consulted. Objective: BP 109/76 Pulse 71 Temp 97.9 ??F (36.6 ??C) (Oral) Resp 16 Ht 1.727 m (5' 8 ) Wt 59.5 kg (131 lb 2.8 oz) SpO2 97% Temp (30hrs) Max:98.6 ??F (37 ??C) Body mass index is 19.94 kg/m??. Exam: General: Con - NAD, AOx4 Cortical Function Mental Status Awake, alert, follows commands Orientation Person, place, time, and situation Language Fluency intact, comprehension intact, repetition intact Visual Ivan L hemianopia present Neglect L hemianopia present. no tactile neglect noted Cranial Nerves II Pupils 3 mm and bilaterally reactive to light. Fundoscopic exam not performed. VIII Deferred. III/IV/ Extraocular muscles intact. No diplopia, ptosis, [...] 5/5 5/5 5/5 Left 5/5 5/5 5/5 n/a Muscle Stretch Reflexes BI TRI BR PAT ACH TOES Right 2 2 2 2 2 Down Left 2 2 2 n/a n/a n/a Patient w/ left AKA. Sensory Light Touch Symmetric and intact bilaterally Noxious Stimuli Not tested Temperature Not tested Pallesthesia Not tested Cerebellar FNF intact bilaterally. Gait Deferred Labs: Recent Labs Component Name 05/13/22 0724 05/12/22 0314 05/11/22 1309 WBC 4.5 6.4 9.4 RBC 3.80* 3.48* 4.48 HGB 12.3 11.4* 14.5 HCT 36.9 33.9* 43.5 Recent Labs Component Name 05/13/22 0724 05/12/22 0314 05/11/22 1309 NA 139 142 138 CL 109* 111* 102 CO2 25 26 29 BUN 9 6* 10 CREATININE 0.48* 0.51* 0.56* CALCIUM 9.1 8.3* 9.7 No results for input(s): MG in the last 76090 hours. Recent Labs Component Name 05/13/22 0724 05/12/22 0314 03/24/22 0258 PHOS 2.7* 2.8 3.1 Recent Labs Component Name 05/11/22 1309 03/11/22 1059 03/05/22 1110 PT 13.5 15.4* 13.4 INR 1.0 1.2 1.0 No results for input(s): A1C in the last 86222 hours. Recent Labs Component Name 04/11/15 0622 CHOL 196 HDL 81 LDLCALC 102* TRIG 63 Recent Labs Component Name 05/15/19 1652 TSH 1.344 Recent Labs Component Name 05/11/22 1833 05/11/22 1606 03/08/22 2137 03/08/22 1455 12/31/21 0412 02/25/21 1134 05/15/19 0911 05/13/19 2030 01/24/19 0154 CKTOTAL - - - - 77 - 63 - 127 TROPONINI <0.010 <0.010 0.016 - - - <0.010 - - - = values in this interval not displayed. Assessment and Plan: #Refractory Epilepsy -onset of seizures likely 2/2 subtherapeutic ASM levels; less likely 2/2 compliance vs infection vsmetabolic -follows w/ neurology here; recently seen 05/06 and had no reported seizure events from facility at that time; stated he should continue current regimen at that time -day prior to admission patient switched meds from PEG tube to oral 2/2 concern for adequate absorption -patient has history of some issues w/ compliance but has had breakthrough seizures in past when good compliance with medications and therapeutic ASM levels -onset of seizures at age 31 & has two types: type #1 brief staring events and ??type #2 being generalized convulsive events -CXR, UA & COVID negative -s/p 2g keppra load by ED -s/p 1g load of valproic acid -CTH w/o acute process -cEEG on 05/11-05/12 w/ epileptiform discharges over the right parietal and right fronto-temporal region, lateralized right hemispheric slowing, and generalized slowing -cEEG on 05/12-05/13 showed right centro-parietal onset seizure, epileptiform discharges over the right parietal and right fronto-temporal region, lateralized right hemispheric slowing, and generalized slowing -valproic acid level today of 54 Plan: -continue on cEEG -continue home meds via PEG: levetiracetam 2000mg BID, lacosamide 200mg BID, and clobazam 20mg BID -for now will dose valproic acid 1000mg BID + valproic acid 500mg at 1300 daily via solution; however would like to switch to sprinkles likely tonight -please keep Mg level >2 -seizure precautions #Dysphagia -patient w/ history of dysphagia and had PEG tube placed in 02/2022 -speech following; MBS done yesterday which showed esophageal retention of all trials Plan: -keep NPO at this time w/ ice chips -TF per nutrition recs -GI consult -continue NS @ 75 #Hx R Occipital stroke -occurred in 2014 -continue home ASA 81mg daily + atorvastatin 40mg daily -PT/OT Discussed Assessment and Plan with Attending Physician Dr. Carl, This progress note will not be considered final without the attestation of attending physician. Karime Echavarria MD Internal Medicine, PGY-3 [facility] F RISK OFFICER Associated attestation - Baldev Carl MD - 05/13/2022 3:56 PM CHIEF RISK OFFICER NEUROLOGY ATTENDING NOTE The patient seen and examined with medical students and residents, I reviewed the history on rounds,examined and discussed with medical students and residents on General Neurology Team. I have reviewed and agree with attached note except as noted below: Summary: Patient is 62 year old male with history of right occipital stroke, head injury and seizures. He was admitted for mental status changes and was given valproic acid and Keppra load. His VA is now therapeutic. He was noted to have left ICA stenosis of 70 percent. It is not clear if this is symptomatic. His mentation has improved. He did not pass his MBS and remains NPO, getting feedings and medications through PEG. Current Facility-Administered Medications Medication Dose Route Frequency Provider Last Rate Last Admin 0.9% NaCl injection 3 mL 3 mL Intracatheter q8h Roxanna Merida MD 3 mL at 05/13/22 1250 And 0.9% NaCl injection 1-10 mL 1-10 mL Intracatheter PRN Roxanna Merida MD artificial tears ophthalmic solution 1 drop 1 drop Each Eye TID PRN Karime Echavarria MD aspirin chew tablet 81 mg 81 mg Enteral Tube QDAY Karime Echavarria MD 81 mg at 05/13/22 1249 atorvastatin (Lipitor) tablet 40 mg 40 mg Enteral Tube QDAY Karime Echavarria MD 40 mg at 05/13/22 1249 cloBAZam (Onfi) tablet 20 mg 20 mg Enteral Tube BID Roxanna Merida MD 20 mg at 05/13/22 0825 dextrose 10 % IV bolus 12.5 g Intravenous PRN Roxanna Merida MD Or dextrose 10 % IV bolus 25 g Intravenous PRN Roxanna Merida MD divalproex sprinkle (Depakote Sprinkle) capsule 1,000 mg 1,000 mg Enteral Tube BID Karime Echavarria MD folic acid (Folvite) tablet 1 mg 1 mg Enteral Tube QDAY Karime Echavarria MD 1 mg at 05/13/22 1249 glucagon (Glucagen) injection 1 mg 1 mg Subcutaneous PRN Roxanna Merida MD glucose (Diabetic Use) (Dex4 Glucose) oral liquid Oral PRN Roxanna Merida MD glucose (Diabetic Use) oral gel Oral PRN Roxanna Merida MD glucose chew tablet 4 tablet 16 g Oral PRN Roxanna Merida MD heparin injection 5,000 Units 5,000 Units Subcutaneous q8h Roxanna Merida MD 5,000 Units at 05/13/22 1250 lacosamide (Vimpat) tablet 200 mg 200 mg Enteral Tube BID Roxanna Merida MD 200 mg at 05/13/22 0825 levETIRAcetam (Keppra) tablet 2,000 mg 2,000 mg Enteral Tube BID Roxanna Merida MD 2,000 mg at 05/13/22 0825 tamsulosin (Flomax) capsule 0.4 mg 0.4 mg Oral AT BEDTIME Karime Echavarria MD thiamine (Vitamin B-1) tablet 100 mg 100 mg Enteral Tube QDAY Karime Echavarria MD 100 mg at 05/13/22 1249 Allergies Allergen Reactions Clonazepam Psychiatric hallucinations Past Medical History: Diagnosis Date CVA (cerebral vascular accident) (CMS/HCC) HTN (hypertension) Seizure (CMS/HCC) Past Surgical History: Procedure Laterality Date ENDOSCOPY, UPPER N/A 03/25/2022 N/A; ESOPHAGOGASTRODUODENOSCOPY (EGD) DIAGNOSTIC with PEG Placement Leg Amputation, Below Knee Left 03/15/2022 Left; LEFT BKA POSS AKA Social History Tobacco Use Smoking status: Former Packs/day: 1.00 Years: 15.00 Pack years: 15.00 Types: Cigarettes Smokeless tobacco: Never Vaping Use Vaping Use: Never used Substance Use Topics Alcohol use: No Comment: last drink 2015 Drug use: No Comment: occasional Exam findings Vitals: 05/12/22 2202 05/13/22 0414 05/13/22 0434 05/13/22 0739 BP: 166/79 114/69 109/76 137/84 Pulse: 58 66 71 73 Resp: 16 16 Temp: 98.1 ??F (36.7 ??C) 97.8 ??F (36.6 ??C) 97.9 ??F (36.6 ??C) 97.6 ??F (36.4 ??C) SpO2: 99% 93% 97% 97% Weight: 59.5 kg (131 lb 2.8 oz) Height: Awake, alert Left hemianopia EOM conjugate Moves all extremities symmetrically Left LE amputation. Please see attached note for details on labs, radiology and ancillary testing. Lab Review Recent Labs Component Name 05/13/22 0724 05/12/22 0314 05/11/22 1309 WBC 4.5 6.4 9.4 HGB 12.3 11.4* 14.5 HCT 36.9 33.9* 43.5 PLTCOUNT 147* 144* 177 Recent Labs Component Name 05/13/22 0724 POTASSIUM 3.7 CO2 25 BUN 9 CREATININE 0.48* GLUCOSE 96 CALCIUM 9.1 ALKPHOS 78 ALT 9 AST 12 EGFR >90 Recent Labs Component Name 04/11/15 0622 CHOL 196 TRIG 63 HDL 81 LDLCALC 102* Recent Labs Component Name 05/12/22 0314 01/01/22 0349 05/12/19 0542 HGBA1C 4.4 5.6 5.5 Medical Decision Making: IMPRESSION/PLAN Active Hospital Problems Diagnosis Date Noted Seizures ([facility] 08/13/2020 Priority: Not Prioritized Seizure medications have been adjusted and appears patient returning to baseline. Not clear if there is a malabsorption issue with giving medications through PEG. Unfortunately, failed MBS. GI consulted. Continue seizure medications at current doses. Discuss left ICA stenosis with stroke service to see if any further workup or treatment indicated. Time Spent in direct patient care: 30 minutes * Crystal Hickey - 05/13/2022 7:55 AM CST General Neurology Progress Note Mojgan Tabor Age: [age] year old Date of : 1960 Date of Admission: 05/11/2022 Hospital Day: 2 Subjective Brief HPI: Mojgan Tabor is a 62 year old male with a PMH of refractory epilepsy followed by [facility], prior head trauma, CVA (2014), HTN, HLD, alcohol abuse (resolved 2015), early-onset alzheimer's, PVD s/p L AKA 03/15/22, and PEG tube dependence since 03/25/2022 who presented on 05/11 due to increased seizure activity, with 6 seizures reported prior to presentation. In the ED, patient was afebrile, hemodynamically stable, and sat'ing appropriately on room air. CMP, CBC, VBG, and CXR were unremarkable. CT head demonstrated no acute intracranial abnormalities and no significant changes from prior. Patient was loaded with 2g keppra on arrival. He was placed on seizure precautions with continuous EEG and home medications were initiated via IV and PEG. Interval History: - 05/12 Electrographic seizure at 5:10 pm with sharp and slow wave complexes identified in right parietal and right fronto-temporal region with correlating tonic flexion of the left hand and left head turning. Unknown duration but reportedly brief. No interventions performed. - This morning, AOx4, afebrile and hemodynamically stable on continuous EEG monitoring - Mental status has significantly improved; awake, alert, and cooperative with exam - Tolerating TPN feeds and maintenance fluids - Denies pain, current headache, nausea, or vomiting Objective Patient Vitals for the past 24 hrs: BP Temp Temp src Pulse Resp SpO2 Weight 05/13/22 0434 109/76 97.9 ??F (36.6 ??C) Oral 71 16 97 % -- 05/13/22 0414 114/69 97.8 ??F (36.6 ??C) -- 66 -- 93 % -- 05/12/22 2202 166/79 98.1 ??F (36.7 ??C) Oral 58 16 99 % 59.5 kg (131 lb 2.8 oz) 05/12/222107 173/90 -- -- 76 14 99 % -- 05/12/222106 173/90 -- -- 69 10 99 % -- 05/12/22 1900 156/83 -- -- 67 15 97 % -- 05/12/22 1617 147/82 -- -- -- 17 96 % -- 05/12/22 1201 132/81 98.4 ??F (36.9 ??C) Temporal 70 14 96 % -- Intake/Output Summary (Last 24 hours) at 05/13/2022 0823 Last data filed at 05/13/2022 0623 Gross per 24 hour Intake 1407.34 ml Output 1350 ml Net 57.34 ml Exam: Limited by patient compliance Cortical Function Mental Status Awake, alert, follows commands Orientation Person, place, time, and situation Language Fluency intact, comprehension intact, repetition intact Visual Ivan Left hemianopia congruent with prior right occipital infarct Neglect No visual neglect noted, no tactile neglect noted Cranial Nerves II Pupils 3 mm and bilaterally reactive to light. Fundoscopic exam not performed. VIII Hearing intact bilaterally III/IV/ Extraocular muscles intact. Irregular eye tracking. No diplopia, ptosis, nystagmus or convergence abnormalities noted. IX/X Palate symmetrically elevated. V Facial sensation symmetric to light touch and intact bilaterally. Corneal reflex not examined. XIHead turning and shoulder shrug are intact. VII No facial palsy noted. XII Tongue is midline with normal movements and no atrophy noted Motor Function Movement No abnormalities noted Bulk No abnormalities noted Tone No abnormalities noted Proximal Upper Distal Upper Proximal Lower Distal Lower Right 5/5 5/5 5/5 5/5 Left 5/5 5/5 N/A N/A Muscle Stretch Reflexes BI TRI BR PAT Right 2 2 2 2 Left 2 2 2 N/A Sensory Light Touch Symmetric and intact bilaterally Noxious Stimuli Symmetric and intact bilaterally Temperature Not tested Pallesthesia Not tested Cerebellar FNF Right Intact Left Intact Gait Deferred Labs: Valproic Acid Level: 54 on 05/13/22 Recent Labs Component Name 05/13/22 0705/12/2231305/11/22 1309 WBC 4.5 6.4 9.4 RBC 3.80* 3.48* 4.48 HGB 12.3 11.4* 14.5 HCT 36.9 33.9* 43.5 Recent Labs Component Name 05/13/22 0724 05/12/2231305/11/22 1309 NA 139 142 138 CL 109* 111* 102 CO2 25 26 29 BUN 9 6* 10 CREATININE 0.48* 0.51* 0.56* CALCIUM 9.1 8.3* 9.7 No results for input(s): MG in the last 17632 hours. Recent Labs Component Name 05/13/22 0724 05/12/22 0314 03/24/22 0258 PHOS 2.7* 2.8 3.1 Recent Labs Component Name 05/11/22 1309 03/11/22 1059 03/05/22 1110 PT 13.5 15.4* 13.4 INR 1.0 1.2 1.0 No results for input(s): A1C in the last 94810 hours. Recent Labs Component Name 04/11/15 0622 CHOL 196 HDL 81 LDLCALC 102* TRIG 63 Recent Labs Component Name 05/15/19 1652 TSH 1.344 Recent Labs Component Name 05/11/22 1833 05/11/22 1606 03/08/22 2137 03/08/22 1455 12/31/21 0412 02/25/21 1134 05/15/19 0911 05/13/19 2030 01/24/19 0154 CKTOTAL - - - - 77 - 63 - 127 TROPONINI <0.010 <0.010 0.016 - - - <0.010 - - - = values in this interval not displayed. 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 1. No acute intracranial abnormality. 2. No significant change since 03/17/2022. > Interpreting Provider: Latrice Ortiz MD on 05/11/2022 3:37 PM EEG 05/11- 05/12: IMPRESSION This is an abnormal cEEG due to 1) epileptiform discharges over the right parietal and right fronto-temporal region, 2) lateralized right hemispheric slowing, and 3) generalized slowing. ?? CLINICAL CORRELATION: Between 05/11/2022 to 05/12/2022, this study was suggestive of an increased tendency towards seizures, lateralized right hemispheric dysfunction, and mild encephalopathy. > Interpreted by Ck Lorenzo MD EEG 05/12-05/13: IMPRESSION This is an abnormal cEEG due to 1) right centro-parietal onset seizure, 2) epileptiform discharges over the right parietal and right fronto-temporal region, 3) lateralized right hemispheric slowing, and 4) [...] lateralized right hemispheric dysfunction, and mild encephalopathy. >Interpreted by Ck Lorenzo MD Sophie Tabor is a 62 year old male with a PMH of refractory epilepsy followed by [facility], priorhead trauma, early onset Alzheimer's, CVA (2015), alcohol abuse (resolved 2016), HTN. HLD, PVD s/p L AKA (02/2022) and PEG tube dependence since 03/25/2022 who presented on 05/11 with breakthrough seizures in the setting of subtherapeutic antiepileptic levels. His refractory epilepsy is most likelydue to malabsorption of antiepileptics from enteral administration given timing of decrease in levels after placement of PEG tube. Non-compliance is less likely due to prior appropriate ASM levels and SNF management of medicine. An infectious cause is also less likely due to lack of fever; pending UA and respiratory panel. A metabolic cause can also be considered due to recent AKA and PEG tube placement, but this is less likely due to normal CMP. Given no acute changes in CT head, a vascular cause for increased seizure activity is low on the differential. Patient's mental status appears to beimproving on enteral ASM medications with occasional continued breakthrough seizures. ?? #Refractory Seizure - Concern for continued seizures due to episodes of staring to the right and increased lethargy during interview in ED - Recently seen at Epilepsy clinic on 05/06 with no reported seizure events from SNF at that time and continued current ASM regimen - Has history of noncompliance, but has recently been compliant with medications demonstrated by therapeutic ASM levels and improved management of medications - cEEG 14 abnormal with epileptiform discharges over the right parietal and right fronto-temporal region, lateralized right hemispheric slowing, and generalized slowing - cEEG /15 abnormal with one right centro-parietal onset seizure and conjugate tonic flexion of the left hand and non-versive leftward head turn. - Valproic acid level 54 from 29 after 1g IV load and enteral valproic acid administration - CXR, Respiratory panel, and Urinalysis negative - CT head without acute process - s/p 2g keppra load by ED - s/p 1g load of Valproic Acid IV Recommendations: - Continue EEG for 24 hours - NPO due to concern for swallowing difficulty - Maintenance IVF with 0.8% NaCl at 75 mL/hr - Continue home ASM through PEG: - Valproic Acid Enteral solution 1000 mg BID and 500 mg enteral at 1500 daily - Levetiracitam Enteral 2000 mg BID - Lacosamide Enteral 200 mg BID - Clobazam Enteral suspension 20 mg BID - Resume all home medications - Artificial tears ophthalmic solution TID - Aspirin 81 mg Enteral daily - Atorvastatin 40 mg Enteral daily - Folic acid 1 mg Enteral daily - Tamsulosin 0.4 mg Enteral at Bedtime - Thiamine 100 mg Enteral daily - Seizure precautions - Fall precautions - PT/OT ordered - If Mg Falls <2, administer 4g Mg IV bolus - Anticipate discharge to SNF tomorrow; Social work and case management following #Dysphagia - Currently NPO; was receiving Jevity tube feeds at night at 65 cc/hr from 6pm- 6am and tolerates a PO regular pureed diet during the day. He has to sit up for 1 hour following meals due to Zenker diverticulum which was found on prior barium swallow study. - Barium swallow and [employer] evaluation 05/12 demonstrated moderately severe oropharyngeal dysphagia. Patient is not a candidate for oral intake at this time. Continued speech therapy and non-oral feeding recommended Recommendations - Continue NPO diet with Enteral medicine administration - Continue TPN feeds per Nutrition recommendations at 60 ml/h goal - Continue Speech therapy - GI consulted for evaluation of Zenker Diverticulum, will follow up outpatient #History of Embolic stroke - CT angio brain & neck 12/29 significant for 70% stenosis of L ICA due to atherosclerotic plaqueat bifurcation, stable from prior - CT head 05/11 significant for diffuse cerebral atrophy with multiple old infarcts located in R medial occipital lobe in [employer] territory, L cerebellum, L para-midline isabella, bilateral thalami, and L basal ganglia. - Physical exam pertinent for left hemianopia consistent with prior R occipital infarct Recommendations - Neurovascular consulted to discuss necessity of intervention for carotid stenosis at this time - Resume home ASA 81 mg and Atorvastatin 40 mg Case findings discussed with , Attending physician. Crystal Hickey MS3, [facility] F RISK OFFICER Associated attestation - Baldev Carl MD - 05/13/2022 12:37 PM CHIEF RISK OFFICER NEUROLOGY ATTENDING This is a Medical Student Note for educational purposes only. Please see my addendum to resident note from today. * Lay Wright RN - 05/13/2022 3:46 AM CST 0044 increased tube feeding to 40 at this time. Flushed with 100ml of water. Pt tolerating tube feeding well. Turned and repositioned Q2. Pillow support provided. Bed low, locked and call light within reach. alarm on. F RISK OFFICER * Lay Wright RN - 05/12/2022 11:25 PM CST Problem: Nutrient: Malnutrition Goal: Enteral/parenteral nutrition prescription [...] integrity is maintained or improved Outcome: Progressing F RISK OFFICER * Elmo Caicedo, JOSIAS - 05/12/2022 2:25 PM CST [facility] Modified Barium Swallow Patient: Mojgan Tabor [facility] Record Number [id number] Date of : 1960 Age: [age] year old PPE: n95, eye protection, gloves Referring Physician: Neurology Diagnosis: Patient Active Problem List: Seizure (CMS/HCC) [...] artery disease) (CMS/HCC) Protein calorie malnutrition (CMS/HCC) Past Medical History: Diagnosis Date ??? CVA (cerebral vascular accident) (CMS/HCC) ??? HTN (hypertension) ??? Seizure (CMS/HCC) Swallow Recommendations: Not a candidate for oral intake at this time and will benefit from non-oral feeding. Will continue to re-assess. --ice chips, PRN, okay with supervision-- Swallowing guidelines: NA Recommended tests/consults: Recommend gasterenterology consultation Discharge Recommendation: TBD, due to acute medical status Speech therapy is recommended to improve swallow function. Subjective: Alert and oriented x2. Objective: Patient's swallow function assessed in radiology via MBS. Patient completed trial of thin liquids, nectar thick liquids and puree consistencies. Patient demonstrated the following: ORAL STAGE: delayed initiation, decreased A- P transit of bolus, reduced tongue base retraction, and PHARYNGEAL STAGE: swallow triggers with bolus head in valleculae, flash penetration of thin liquids, moderate-severe pharyngeal residue following swallow with incomplete emptying, and ESOPHAGEAL STAGE: esophageal retention of all trials with backflow into pharynx with penetration. Patient used multiple swallows to clear residue with no observable change in residue. ST recommends NPO at this time, ice chips PRN with supervision, are okay to keep oral cavity moist and oral care TID. Patient has completedmultiple bedside swallow assessments and MBS with similar results. No further ST recommendations atthis time. Patient would be appropriate for another MBS in 3-4 months. Thank you for this referral. Cognitive/Mental Status: Patient appears alert, but requires cues and prompts to consistently use swallow guidelines. Procedure: This procedure was performed in conjunction with radiology using lateral views. The patient was given thin liquid, nectar thick liquid and pudding consistency . Oral Stage: Mastication: Functional Transit: Increased oral transit time Tongue Base Retraction: Mildly reduced Pharyngeal Stage: Response Triggering: Mild delay Spillage of Bolus: Valleculae and Underside of epiglottis Epiglottic Function: Functional Stasis/Residue: Pyriform sinus and Anterior pharyngeal wall Multi Penetration/Aspiration: During swallow and After swallow Consistency: Thin Liquids and [place]-thick liquids Amount: Trace Cough: Absent Esophageal Stage: Cricopharyngeal Function: Inefficient Swallowing Function: Moderate-severe oropharyngeal dysphagia Dysphagia Outcome and Severity Scale (ANTONINO): ??? Level 7: Normal in all situations ??? Level 6: Within functional limits/modified independence ??? Level 5: Mild dysphagia: distant supervision, may need 1 diet consistency restricted ??? Level 4: Mild-moderate dysphagia: intermittent supervision/cueing, 1 or 2 consistencies restricted ??? Level 3: Moderate dysphagia: total assist, supervision or strategies, 2 or more diet consistencies restricted ??? Level 2: Moderately severe dysphagia: maximum assistance or use of strategies with partial per oral only (tolerates at least 1 consistency safely with total use of strategies) ??? Level 1: Severe dysphagia: not per oral: unable to tolerate any per oral safely Functional Oral Intake Scale (FOIS): ??? Level 7: Total oral diet with no limitations ??? Level 6: Total oral diet without special preparation but may need to avoid/modify specific items. ??? Level 5: Total oral diet with multiple consistencies but requiring special preparations or compensations. ??? Level 4: Total oral diet of a single consistency ??? Level 3: Tube dependent with consistent oral intake of at least one consistency of food or liquid. ??? Level 2: Tube dependent with minimal attempts of food or liquid (I.e. for pleasure/QoL/therapy) ??? Level 1: Nothing by Mouth (NPO) Education: Patient, Nursing and Physician instructed in recommedations and indicated understanding. Informed Consent to Treatment: Plan of care including recommended therapy, goals and frequency, as well as potential risks and benefits of treatment/assessment explained to the patient who understands and agrees to proceed. Short Term Goal(s): Patient/staff/family to receive instruction in compensatory swallowing strategies andd/or recommendations and verbalize understandi. Technology Support Analyst Goal(s): Patient to be independent/baseline with functional swallow and be able to safely discharge to priorlevel of care. Elmo Ansari M.A., [facility] OFFIC[employer] Speech Language Pathologist [phone] F RISK OFFICER * Crystal Hickey - 05/12/2022 11:30 AM CST General Neurology Progress Note Mojgan Tabor Age: [age] year old Date of : 1960 Date of Admission: 05/11/2022 Hospital Day: 1 Subjective Brief HPI: Mojgan Tabor is a 62 year old male with a PMH of refractory epilepsy followed by [facility], prior head trauma, CVA (2014), HTN, HLD, alcohol abuse (resolved 2015), early-onset alzheimer's, PVD s/p L AKA 03/15/22, and PEG tube dependence since 03/25/2022 who presented on 05/11 due to increased seizure activity, with 6 seizures reported prior to presentation. In the ED, patient was afebrile, hemodynamically stable, and sat'ing appropriately on room air. CMP, CBC, VBG, and CXR were unremarkable. CT head demonstrated no acute intracranial abnormalities and no significant changes from prior. Patient was loaded with 2g keppra on arrival. He was placed on seizure precautions with continuous EEG and home medications were initiated via IV and PEG. Interval History: No acute events overnight. AOx4, Afebrile and hemodynamically stable on continuous EEG monitoring. Mental status grossly unchanged from presentation. Patient denies overnight seizures and has no complaints of pain, headache, nausea, or vomiting. Per SNF Nurse Alma, Mr. Tabor was receiving Jevity tube feeds at 65cc/hr from 6pm-6am. During the day, he eats a regular pureed diet PO. He is required to sit upright for one hour after eating due to Zenker diverticulum found on prior barium swallow study. At baseline, Mr. Tabor is alert and oriented to person and place and knows the names of his nurses at the SNF. He is forgetful and repeats things due to his Alzheimer's, but is typically able to follow commands and answer questions. Objective Patient Vitals for the past 24 hrs: BP Temp Temp src Pulse Resp SpO2 Height Weight 05/12/22 0810 131/77 98.6 ??F (37 ??C) Temporal 79 18 96 % -- -- 05/12/22 0602 123/76 -- -- 79 17 95 % -- -- 05/12/22 0457 109/71 -- -- 79 16 95 % -- -- 05/12/22 0301 114/72 -- -- 79 17 94 % -- -- 05/12/22 0200 118/71 -- -- 77 17 96 % -- -- 05/12/22 0101 110/73 -- -- 86 -- 95 % -- -- 05/11/22 2358 131/76 -- -- 77 -- 96 % -- -- 05/11/22 2258 110/71 -- -- 89 -- 96 % -- -- 05/11/22 2201 147/84 -- -- 82 -- 97 % -- -- 05/11/22 2141 124/76 -- -- 83 -- 97 % -- -- 05/11/22 1705 -- -- -- -- 15 99 % -- -- 05/11/22 1232 143/93 -- -- 95 -- 97 % 5' 8 (1.727 m) 104 lb 15 oz (47.6 kg) 05/11/22 1230 143/97 98.4 ??F (36.9 ??C) -- 92 20 96 % 6' (1.829 m) 110 lb (49.9 kg) Intake/Output Summary (Last 24 hours) at 05/12/2022 1131 Last data filed at 05/12/2022 0454 Gross per 24 hour Intake -- Output 675 ml Net -675 ml Exam: Limited by patient compliance Cortical Function Mental Status Awake, lethargic, follows commands intermittently Orientation Person, place, time, and situation Language Fluency intact, comprehension intact, repetition intact Visual Ivan Unable to assess Neglect No visual neglect noted, no tactile neglect noted Cranial Nerves II Pupils 3 mm and bilaterally reactive to light. Fundoscopic exam not performed. VIII Unable to assess III/IV/ Extraocular muscles intact. No diplopia, ptosis, nystagmus or convergence abnormalities noted. IX/X Unable to assess V Facial sensation symmetric to light touch and intact bilaterally. Corneal reflex not examined. XIHead turning and shoulder shrug are intact. VII No facial palsy noted. XII Tongue is midline with normal movements and no atrophy noted Motor Function Movement No abnormalities noted Bulk No abnormalities noted Tone No abnormalities noted Proximal Upper Distal Upper Proximal Lower Distal Lower Right 4/5 4/5 4/5 5/5 Left 3/5 3/5 Deferred N/A Muscle Stretch Reflexes BI TRI BR PAT Right 2 2 2 2 Left 2 2 2 N/A Sensory Light Touch Symmetric and intact bilaterally Noxious Stimuli Symmetric and intact bilaterally Temperature Not tested Pallesthesia Not tested Cerebellar Deferred Gait Deferred Labs: Recent Labs Component Name 05/12/22 0314 05/11/22 1309 04/01/22 0608 WBC 6.4 9.4 8.2 RBC 3.48* 4.48 3.43* HGB 11.4* 14.5 11.0* HCT 33.9* 43.5 33.9* Recent Labs Component Name 05/12/22 0314 05/11/22 1309 04/01/22 0608 NA 142 138 138 CL 111* 102 104 CO2 26 29 29 BUN 6* 10 12 CREATININE 0.51* 0.56* 0.49* CALCIUM 8.3* 9.7 9.2 No results for input(s): MG in the last 43668 hours. Recent Labs Component Name 05/12/22 0314 03/24/22 0258 03/16/22 0619 PHOS 2.8 3.1 3.2 Recent Labs Component Name 05/11/22 1309 03/11/22 1059 03/05/22 1110 PT 13.5 15.4* 13.4 INR 1.0 1.2 1.0 No results for input(s): A1C in the last 46351 hours. Recent Labs Component Name 04/11/15 0622 CHOL 196 HDL 81 LDLCALC 102* TRIG 63 Recent Labs Component Name 05/15/19 1652 TSH 1.344 Recent Labs Component Name 05/11/22 1833 05/11/22 1606 03/08/22 2137 03/08/22 1455 12/31/21 0412 02/25/21 1134 05/15/19 0911 05/13/19 2030 01/24/19 0154 CKTOTAL - - - - 77 - 63 - 127 TROPONINI <0.010 <0.010 0.016 - - - <0.010 - - - = values in this interval not displayed. Imaging: CT Head 05/11/22 IMPRESSION: ?? 1. No acute intracranial abnormality. 2. No significant change since 03/17/2022. > Interpreting Provider: Latrice Ortiz MD on 05/11/2022 3:37 PM EEG 05/11- 05/12: IMPRESSION This is an abnormal cEEG due to 1) epileptiform discharges over the right parietal and right fronto-temporal region, 2) lateralized right hemispheric slowing, and 3) generalized slowing. ?? CLINICAL CORRELATION: Between 05/11/2022 to 05/12/2022, this study was suggestive of an increased tendency towards seizures, lateralized right hemispheric dysfunction, and mild encephalopathy. > Interpreted by Ck Lorenzo MD Assessment Mojgan Tabor is a 62 year old male with a PMH of refractory epilepsy followed by [facility], priorhead trauma, early onset Alzheimer's, CVA (2014), alcohol abuse (resolved 2015), HTN. HLD, PVD s/p L AKA (02/2022) and PEG tube dependence since 03/25/2022 who presented on 05/11 with breakthrough seizures in the setting of subtherapeutic antiepileptic levels. His refractory epilepsy is most likelydue to malabsorption of antiepileptics from enteral administration given timing of decrease in levels after placement of PEG tube. Non-compliance is less likely due to prior appropriate ASM levels and SNF management of medicine. An infectious cause is also less likely due to lack of fever; pending UA and respiratory panel. A metabolic cause can also be considered due to recent AKA and PEG tube placement, but this is less likely due to normal CMP. Given no acute changes in CT head, a vascular cause for increased seizure activity is low on the differential. Physical exam was concerning for continued seizures due to episodes of staring off and lethargy during interview. ?? #Refractory Seizure - Concern for continued seizures due to episodes of staring to the right and increased lethargy during interview in ED - Recently seen at Epilepsy clinic on 05/06 with no reported seizure events from SNF at that time and continued current ASM regimen - Has history of noncompliance but has recently been compliant with medications demonstrated by therapeutic ASM levels and improved management of medications - Currently NPO; was receiving Jevity tube feeds at night at 65 cc/hr from 6pm- 6am and tolerates a PO regular pureed diet during the day. He has to sit up for 1 hour following meals due to Zenker diverticulum which was found on prior barium swallow study. - CXR, Respiratory panel, and Urinalysis negative - CT head without acute process - s/p 2g keppra load by ED - s/p 1g load of Valproic Acid IV - s/p 4g magnesium sulfate IV - cEEG abnormal with epileptiform discharges over the right parietal and right fronto-temporal region, lateralized right hemispheric slowing, and generalized slowing Recommendations: - Continue EEG ordered due to concern for active seizures - UA & respiratory panel to rule out infection as source of seizure - NPO due to concern for swallowing difficulty - Maintenance IVF with 0.8% NaCl at 75 mL/hr - Nutrition consulted for tube feed recommendations - Speech Therapy consulted for swallow evaluation in anticipation of initiating PO medications - Barium swallow for [employer] assessment - 10 mg Clobazam liquid form now through PEG; 10 mg given at fpc this AM - Continue home meds, defer oral for now: - Valproic Acid IV 1000 mg BID - Levetiracitam IV 2000 mg BID - Lacosamide IV 200 mg BID - Clobazam suspension 20 mg BID via PEG - Seizure precautions - Fall precautions - Keep Mg >2 - Will obtain valproic acid level in future to monitor for absorption Case findings discussed with , Attending physician. Crystal Hickey MS3, [facility] F RISK OFFICER Associated attestation - Baldev Carl MD - 05/12/2022 3:00 PM CHIEF RISK OFFICER NEUROLOGY ATTENDING This is a Medical Student Note for educational purposes only. Please see my addendum to resident note from today. * Karime Echavarria MD - 05/12/2022 11:07 AM CST Images from the original note were not included. Neurology Progress Note Patient: Mojgan Tabor Room: 28 Age: [age] year old Subjective: Mojgan Tabor is a 62 year old male w/ PMHx of alcohol abuse (resolved 2015), CVA, HTN, HLD, prior head injury, cervical osteoarthritis, anxiety, Alzheimer's (early onset) and refractory epilepsy who presents from SNF d/t report of four seizures yesterday and two this morning. Neurology clinic was made aware and instructed patient to seek attention in the ED. No seizures were noted in en route, per report. ??In ED, patient afebrile, hemodynamically stable, and satting well on room air. CMP and CBC unremarkable. CXR unremarkable. CTH negative for acute process. Was loaded with 2g keppra on arrival in ED. Placed on cEEG. Loaded w/ 1g valproic acid and home ASM started (via IV and PEG). Overnight: -cEEG showed epileptiform discharges over the right parietal and right fronto- temporal region, lateralized right hemispheric slowing, and generalized slowing. -Patient currently NPO. Speech consulted for swallow eval and nutrition consulted for tube feed recs. -Currently on NS @ 75. -Patient without complaints this morning. Does not remember having any seizures since admission. Denies any pain. -AOx4. Objective: BP 131/77 Pulse 79 Temp 98.6 ??F (37 ??C) (Temporal) Resp 18 Ht 5' 8 (1.727 m) Wt 104 lb15 oz (47.6 kg) SpO2 96% Temp (30hrs) Max:98.6 ??F (37 ??C) Body mass index is 15.96 kg/m??. Exam: General: Con - NAD, AOx4 Cortical Function Mental Status Awake, alert, follows commands Orientation Person, place, time, and situation Language Fluency intact, comprehension intact, repetition intact Visual Ivan Intact bilaterally to confrontation Neglect No visual neglect noted, no tactile neglect noted Cranial Nerves II Pupils 3 mm and bilaterally reactive to light. Fundoscopic exam not performed. VIII Deferred. III/IV/ Extraocular muscles intact. No diplopia, ptosis, nystagmus or convergence abnormalities noted. IX/X Deferred. V Facial sensation symmetric to light touch [...] 2 2 Down Left 2 2 2 n/a n/a n/a Patient w/ left AKA. Sensory Light Touch Symmetric and intact bilaterally Noxious Stimuli Not tested Temperature Not tested Pallesthesia Not tested Cerebellar Deferred. Gait Deferred Labs: Recent Labs Component Name 05/12/22 0314 05/11/22 1309 04/01/22 0608 WBC 6.4 9.4 8.2 RBC 3.48* 4.48 3.43* HGB 11.4* 14.5 11.0* HCT 33.9* 43.5 33.9* Recent Labs Component Name 05/12/22 0314 05/11/22 1309 04/01/22 0608 NA 142 138 138 CL 111* 102 104 CO2 26 29 29 BUN 6* 10 12 CREATININE 0.51* 0.56* 0.49* CALCIUM 8.3* 9.7 9.2 No results for input(s): MG in the last 28284 hours. Recent Labs Component Name 05/12/22 0314 03/24/22 0258 03/16/22 0619 PHOS 2.8 3.1 3.2 Recent Labs Component Name 05/11/22 1309 03/11/22 1059 03/05/22 1110 PT 13.5 15.4* 13.4 INR 1.0 1.2 1.0 No results for input(s): A1C in the last 80265 hours. Recent Labs Component Name 04/11/15 0622 CHOL 196 HDL 81 LDLCALC 102* TRIG 63 Recent Labs Component Name 05/15/19 1652 TSH 1.344 Recent Labs Component Name 05/11/22 1833 05/11/22 1606 03/08/22 2137 03/08/22 1455 12/31/21 0412 02/25/21 1134 05/15/19 0911 05/13/19 2030 01/24/19 0154 CKTOTAL - - - - 77 - 63 - 127 TROPONINI <0.010 <0.010 0.016 - - - <0.010 - - - = values in this interval not displayed. Assessment and Plan: #Refractory Epilepsy -onset of seizures likely 2/2 subtherapeutic ASM levels; less likely 2/2 compliance vs infection vsmetabolic -follows w/ neurology here; recently seen 05/06 and had no reported seizure events from facility at that time; stated he should continue current regimen at that time -yesterday patient switched meds from PEG tube to oral 2/2 concern for adequate absorption -patient has history of some issues w/ compliance but has had breakthrough seizures in past when good compliance with medications and therapeutic ASM levels -onset of seizures at age 31 & has two types: type #1 brief staring events and ??type #2 being generalized convulsive events -CXR, UA & COVID negative -s/p 2g keppra load by ED -s/p 1g load of valproic acid -CTH w/o acute process -cEEG w/ epileptiform discharges over the right parietal and right fronto- temporal region, lateralized right hemispheric slowing, and generalized slowing Plan: -continue on cEEG -continue home meds: IV valproic acid 1000mg BID, IV levetiracetam 2000mg BID, IV lacosamide 200mg BID, and clobazam 20mg BID via PEG -speech therapy evaluation to assess ability to swallow given would like to start patient on PO meds -nutrition consulted for tube feed recs -will obtain valproic acid level in future -please keep Mg level >2 -seizure precautions #Dysphagia -will f/u speech therapy and nutrition recs as noted above -holding home meds in setting of NPO at this time Discussed Assessment and Plan with Attending Physician Dr. Carl, This progress note will not be considered final without the attestation of attending physician. Karime Echavarria MD Internal Medicine, PGY-3 [facility] F RISK OFFICER Associated attestation - Baldev Carl MD - 05/12/2022 3:50 PM CHIEF RISK OFFICER Concur with resident note. Please see my addendum to the history and physical for full details. * Patricia Berry RN - 05/11/2022 7:27 PM CST Pt A+Ox2 Vitals stable EEG placed External catheter in place Lungs WNL Pt comfortable Magnesium bolus given F RISK OFFICER * Lucien Butler MD - 05/11/2022 4:35 PM CST Family notification documentation Contact made: 05/11/2022 4:35 PM Person(s) contacted: Adrianejosé miguel Hilliard (daughter) Method of communication: Phone Duration of discussion: 5 minutes Summary of discussion Called patient sister and updated her about the plan of care for Mr Tabor. Also discussed the code status and she endorsed that patient should be Full code. Answered all questions. Signed: Lucien Butler MD PGY2, Neurology F RISK OFFICER * Melissa Alford LCSW - 05/11/2022 2:25 PM CST SW spoke with pt's sister Adriane to inform of admission. Pt resides at [facility] and rehab progressive care unit registered nurse Melissa DENI Alford F RISK OFFICER documented in this encounter H&P Notes * Karime Echavarria MD - 05/11/2022 4:27 PM CST Neurology Consult Note/History & Physical Patient: Mojgan Tabor Age: [age] year old Admission Date and Time: 05/11/2022 Reason for consult/Chief Complaint: Seizures History of Presenting Illness: Mojgan Tabor is a 62 year old male w/ PMHx of alcohol abuse (resolved 2015), CVA, HTN, HLD, prior head injury, cervical osteoarthritis, anxiety, Alzheimer's (early onset) and refractory epilepsy who presents from SNF d/t report of four seizures yesterday and two this morning. Neurology clinic was made aware and instructed patient to seek attention in the ED. No seizures were noted in en route, per report. Of note, patient follows closely w/ epilepsy clinic and last seen 05/06. Patient's medications were previously given via PEG 2/2 dysphagia (this was placed during 03/25/2022 during an admission). Whenseizure was noted yesterday, neurology clinic was called and ordered levels of ASM. Levels on 05/06 were noted to be Valproic acid of 29, Keppra of 47, and Lacosamide of 3.5. Of note, prior valproicacid level was 95 on 03/12/2022. Medications were switched to PO d/t concern for inadequate absorption (patient recently passed swallow eval). Meds switched to PO: levetiracetam 2,000mg BID, lacosamide 200mg BID, clobazam 20mg BID, and depakote DR 1000mg BID. Patient states he is very tired and was a poor historian due to multiple episodes of staring off during interview and not answering questions. States that he remembers having multiple seizures yesterday and his last seizure was this morning. States seizures were very quick but could not quantify time. Endorses tinnitus but could not elaborate. Denies headache, dizziness, changes in vision, nausea, or vomiting. In ED, patient afebrile, hemodynamically stable, and satting well on room air. CMP and CBC unremarkable. CXR unremarkable. CTH ordered. Was loaded with 2g keppra on arrival in ED. Past Medical History Past Medical History: Diagnosis Date ??? CVA (cerebral vascular accident) (CMS/HCC) ??? HTN (hypertension) ??? Seizure (CMS/HCC) Past Surgical History: Procedure Laterality Date ??? ENDOSCOPY, UPPER N/A 03/25/2022 N/A; ESOPHAGOGASTRODUODENOSCOPY (EGD) DIAGNOSTIC with PEG Placement ??? Leg Amputation, Below Knee Left 03/15/2022 Left; LEFT BKA POSS AKA Allergies Allergies Allergen Reactions ??? Clonazepam Psychiatric hallucinations Family History No known pertinent FHx. Social History Tobacco Use: former smoker (15 pack years) Alcohol: None since 2016 Review of Systems Unable to complete ROS 2/2 patient lethargy. Objective: BP 143/93 Pulse 95 Temp 98.4 ??F (36.9 ??C) Resp 20 Ht 5' 8 (1.727 m) Wt 104 lb 15 oz (47.6 kg) SpO2 97% Temp (30hrs) Max:98.4 ??F (36.9 ??C) Body mass index is 15.96 kg/m??. Exam: General: Con - lethargic Cortical Function Mental Status Awake but lethargic, follows commands intermittently Orientation Person, place, time, and situation Language Fluency intact, comprehension intact, repetition intact Visual Ivan Intact bilaterally to confrontation Neglect No visual neglect noted, no tactile neglect noted Cranial Nerves II Pupils 3 mm and bilaterally reactive to light. Fundoscopic exam not performed. VIII Unable to assess. III/IV/ Extraocular muscles grossly intact. IX/X Unable to assess. V Unable to assess. XI Head turning and shoulder shrug are intact. VII No facial palsy noted. XII Unable to assess. Motor Function Movement No abnormalities noted Bulk No abnormalities noted Tone No abnormalities noted Left AKA noted. Muscle Stretch Reflexes Deferred 2/2 lethargy. Sensory Unable to perform 2/2 lethargy. Cerebellar Unable to perform 2/2 lethargy. Gait Deferred Labs: Recent Results (from the past 24 hour(s)) EKG 12-LEAD Collection Time: 05/11/22 12:34 PM Result Value Ref Range Ventricular Rate 99 BPM Atrial Rate 99 BPM P-R Interval 138 ms QRS Duration ms 76 ms Q-T Interval ms 332 ms QTC Calculation (Bezet) 426 ms Calculated P [place] 66 degrees Calculated R [place] 15 degrees Calculated T [place] 80 degrees Interpretation EKG NORMAL SINUS RHYTHM NORMAL ECG WHEN COMPARED WITH ECG OF 08-MAR-2022 14:05, PREMATURE VENTRICULAR COMPLEXES ARE NO LONGER PRESENT CRITERIA FOR ANTEROSEPTAL INFARCT ARE NO LONGER PRESENT BLOOD GASES ANA + COOX PANEL Collection Time: 05/11/22 1:09 PM Result Value Ref Range pH Venous 7.36 7.32 - 7.42 pH pO2 Venous 31 (L) 35 - 40 mmHg pCO2 Venous 53 (H) 40 - 50 mmHg HCO3 Venous 29.9 20 - 30 mmol/L Base Excess Venous 3.3 (H) -2.0 - 2.0 mmol/L Oxyhemoglobin Venous 43.4 % Deoxyhemoglobin (HHB) Venous % 54.8 % Methemoglobin <0.8 0.0 - 2.0 % Carboxyhemoglobin 1.2 0.0 - 2.0 % O2 Content Venous 8.0 Interpret within clinical context ml/dL Hemoglobin by COOX 13.1 12.0 - 17.6 g/dL O2 Saturation Venous 44 (L) >=70 % FI O2 Mixed Venous 21.0 % CBC W AUTO DIFFERENTIAL Collection Time: 05/11/22 1:09 PM Result Value Ref Range WBC 9.4 3.5 - 10.5 10??3/uL RBC 4.48 4.30 - 5.70 10??6/uL Hemoglobin 14.5 12.0 - 17.6 g/dL Hematocrit 43.5 35.2 - 51.7 % MCV 97.1 80.7 - 98.3 fL MCH 32.4 26.7 - 34.0 pg MCHC 33.3 30.8 - 35.9 g/dL RDW-SD 46.5 36.0 - 50.0 fL RDW-CV 13.0 11.2 - 14.8 % Platelet Count 177 150 - 400 10??3/uL MPV 12.2 9.4 - 12.9 fL nRBC Absolute 0.00 0 10??3/uL nRBC Auto 0.0 0 /100 WBC Neutrophils % 65.8 35.0 - 70.0 % Lymphocytes % 25.9 20.0 - 43.0 % Monocytes % 7.2 5.0 - 13.0 % Eosinophils % 0.7 0.0 - 6.0 % Basophil % 0.1 0.0 - 2.0 % Neutrophils Absolute 6.18 1.60 - 7.00 10??3/uL Lymphocyte Absolute 2.43 1.10 - 3.90 10??3/uL Monocytes Absolute 0.68 0.26 - 1.07 10??3/uL Eosinophils Absolute 0.07 0.00 - 0.47 10??3/uL Basophils Absolute 0.01 0.00 - 0.08 10??3/uL Immature Granulocytes % 0.3 0.0 - 1.0 % Immature Granulocytes Absolute 0.03 PT-INR [facility] Collection Time: 05/11/22 1:09 PM Result Value Ref Range PT 13.5 12.1 - 14.8 Seconds INR 1.0 See Comment EEG: Last EEG was 03/16/22-03/17/22 Neuroimaging: [facility] pending Assessment and Plan: #Refractory Epilepsy -concern that patient could be having continued seizures given episodes of staring off while interviewing patient in the ED -onset of seizures could be 2/2 malabsorption; less likely 2/2 compliance vs infection vs metabolic; evaluating structural cause w/ CTH -follows w/ neurology here; recently seen 05/06 and had no reported seizure events from facility at that time; stated he should continue current regimen at that time -yesterday patient switched meds from PEG tube to oral 2/2 concern for adequate absorption -patient has history of some issues w/ compliance but has had breakthrough seizures in past when good compliance with medications and therapeutic ASM levels -onset of seizures at age 31 & has two types: type #1 brief staring events and type #2 being generalized convulsive events -patient/family had concern in the past w/ SNF managing medications so patient now manages patient's meds -CXR negative -s/p 2g keppra load by ED Recommendations: -obtain UA & COVID to rule out infection as source of seizure -cEEG ordered d/t concern for active seizures -f/u CTH -seizure precautions -1g load of valproic acid IV -give 10mg of clobazam now through PEG (checked with [facility] and only 10mg was given this morning) -start home meds: IV valproic acid 1000mg BID, IV levetiracetam 2000mg BID, IV lacosamide 200mg BID, and clobazam 20mg BID via PEG -please keep Mg level >2 Discussed with Attending Physician, Dr. Carl. Karime Echavarria MD Internal Medicine, PGY-3 F RISK OFFICER Associated attestation - Baldev Carl MD - 05/12/2022 3:49 PM CHIEF RISK OFFICER I am attesting this note that was written on 05/11/2022 on 05/12/2022 after seeing the patient neurology rounds. The date of the service is 05/12/2022. NEUROLOGY ATTENDING NOTE The patient seen and examined with medical students and residents, I reviewed the history on rounds,examined and discussed with medical students and residents on General Neurology Team. I have reviewed and agree with attached note except as noted below: Summary: Patient is 62 year old male with a history of stroke, TBI, dementia and seizures. He has a history of amputation and has a PEG tube in place. He has been on lacosamide, clobazam, valproic acid, and Keppra. He was brought in from his [facility] after having multiple seizures. He is followed in theepilepsy clinic. On admission he was placed on continuous EEG. the results are below. Work-up shows subtherapeutic level of valproic acid. He was given a 1 g load of valproic acid to bring him to therapeutic range. CT of the head showed no acute process. Current Facility-Administered Medications Medication Dose Route Frequency Provider Last Rate Last Admin 0.9% NaCl infusion Intravenous Continuous Roxanna Merida MD 0.9% NaCl injection 3 mL 3 mL Intracatheter q8h Roxanna Merida MD And 0.9% NaCl injection 1-10 mL 1-10 mL Intracatheter PRN Roxanna Merida MD cloBAZam (Onfi) tablet 20 mg 20 mg Enteral Tube BID Roxanna Merida MD 20 mg at 05/12/22 0854 dextrose 10 % IV bolus 12.5 g Intravenous PRN Roxanna Merida MD Or dextrose 10 % IV bolus 25 g Intravenous PRN Roxanna Merida MD glucagon (Glucagen) injection 1 mg 1 mg Subcutaneous PRN Roxanna Merida MD glucose (Diabetic Use) (Dex4 Glucose) oral liquid Oral PRN Roxanna Merida MD glucose (Diabetic Use) oral gel Oral Roxanna Luna MD glucose chew tablet 4 tablet 16 g Oral PRN Roxanna Merida MD heparin injection 5,000 Units 5,000 Units Subcutaneous q8h Roxanna Merida MD 5,000 Units at 05/12/22 1313 lacosamide (Vimpat) tablet 200 mg 200 mg Enteral Tube BID Roxanna Merida MD levETIRAcetam (Keppra) tablet 2,000 mg 2,000 mg Enteral Tube BID Roxanna Merida MD valproic acid (Depakene) capsule 1,000 mg 1,000 mg Enteral Tube BID Roxanna Merida MD Current Outpatient Medications Medication Sig Dispense Refill acetaminophen (Tylenol) 325 MG tablet Take 1 (one) tablet by mouth every 6 hours as needed for Fever or Pain artificial tears ophthalmic solution Instill 1 (one) drop into both eyes 3 times daily as needed aspirin (Aspirin) 81 MG chew tablet Take 1 (one) tablet by mouth once daily 60 tablet 2 atorvastatin (Lipitor) 40 MG tablet 1 (one) tablet by Enteral Tube route once daily bisacodyl (Dulcolax) 10 MG suppository Insert 1 (one) suppository into the rectum once daily as needed for Constipation cloBAZam (Onfi) 10 MG tablet Take 2 (two) tablets by mouth 2 times daily [address] (Depakote) 500 MG tablet Take 2 (two) tablets by mouth 2 times daily 120 tablet 11 folic acid (Folvite) 1 MG tablet 1 (one) tablet by Enteral Tube route once daily lacosamide (Vimpat) 200 MG tablet Take 1 (one) tablet by mouth 2 times daily 60 tablet 5 levETIRAcetam (Keppra) 1000 MG tablet Take 2 (two) tablets by mouth 2 times daily 120 tablet 11 polyethylene glycol 3350 (Miralax) 17 g packet Take 17 (seventeen) g by mouth once daily tamsulosin (Flomax) 0.4 MG capsule Take 1 (one) capsule by mouth once daily At the same time every day after a meal. thiamine (Vitamin B-1) 100 MG tablet 1 (one) tablet by Enteral Tube route once daily Allergies Allergen Reactions Clonazepam Psychiatric hallucinations Past Medical History: Diagnosis Date CVA (cerebral vascular accident) (CMS/HCC) HTN (hypertension) Seizure (CMS/HCC) Past Surgical History: Procedure Laterality Date ENDOSCOPY, UPPER N/A 03/25/2022 N/A; ESOPHAGOGASTRODUODENOSCOPY (EGD) DIAGNOSTIC with PEG Placement Leg Amputation, Below Knee Left 03/15/2022 Left; LEFT BKA POSS AKA Social History Tobacco Use Smoking status: Former Packs/day: 1.00 Years: 15.00 Pack years: 15.00 Types: Cigarettes Smokeless tobacco: Never Vaping Use Vaping Use: Never used Substance Use Topics Alcohol use: No Comment: last drink 2015 Drug use: No Comment: occasional Family History Non-contributory to the patient's current condition Exam findings Vitals: 05/12/22 0457 05/12/22 0602 05/12/22 0810 05/12/22 1201 BP: 109/71 123/76 131/77 132/81 Pulse: 79 79 79 70 Resp: 16 17 18 14 Temp: 98.6 ??F (37 ??C) 98.4 ??F (36.9 ??C) SpO2: 95% 95% 96% 96% Weight: Height: Awakens to his name being called Follows one-step commands Extraocular muscles move conjugately, pupils react to light Left AKA, moving all extremities Please see attached note for details on labs, radiology and ancillary testing. Lab Review Recent Labs Component Name 05/12/22 0314 05/11/22 1309 04/01/22 0608 WBC 6.4 9.4 8.2 HGB 11.4* 14.5 11.0* HCT 33.9* 43.5 33.9* PLTCOUNT 144* 177 219 Recent Labs Component Name 05/12/22 0314 POTASSIUM 3.8 CO2 26 BUN 6* CREATININE 0.51* GLUCOSE 99 CALCIUM 8.3* ALKPHOS 73 ALT 9 AST 11 EGFR >90 Recent Labs Component Name 04/11/15 0622 CHOL 196 TRIG 63 HDL 81 LDLCALC 102* Recent Labs Component Name 05/12/22 0314 01/01/22 0349 05/12/19 0542 HGBA1C 4.4 5.6 5.5 cEEG: IMPRESSION This is an abnormal cEEG due to 1) epileptiform discharges over the right parietal and right fronto-temporal region, 2) lateralized right hemispheric slowing, and 3) generalized slowing. CLINICAL CORRELATION: Between 05/11/2022 to 05/12/2022, this study was suggestive of an increased tendency towards seizures, lateralized right hemispheric dysfunction, and mild encephalopathy. Imaging CT scan of the head without intravenous contrast TECHNIQUE: CT of the head was performed without intravenous contrast according to standard protocol. CT dose reduction technique was used, including Automated Exposure Control. 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 Small old infarcts are also seen in the left cerebellum, left para midline isabella, bilateral thalami and left basal ganglia. Moderate chronic microvascular ischemic changes are seen in the supratentorial white matter. There is moderate generalized cerebral volume loss and severe cerebellar/brainstem volume loss. There is complete opacification of the right maxillary sinus with heterogeneous material extending into the right nasal cavity through a widened ostium suggesting antrochoanal polyp. Old fracture of the left medial orbital wall is seen. A 1.6 cm sebaceous cyst is seen in the left para midline occipital scalp. Cerumen is seen in the right external auditory canal. IMPRESSION: 1. No acute intracranial abnormality. 2. No significant change since 03/17/2022. Medical Decision Making: IMPRESSION/PLAN Active Hospital Problems Diagnosis Date Noted Seizures ([facility]) 08/13/2020 Priority: Not Prioritized Patient has a history of stroke, traumatic brain injury, dementia, and seizures. He has a G-tube inplace. Continuous EEG shows epileptiform discharges. Is not clear if he is having malabsorption of his seizure medications. We have asked speech therapy to see the patient for swallow evaluation. Ideally, would like to change his medications over to p.o. Work-up any metabolic or infectious etiology that might of contributed to his seizures. Continue his current medications. Seizure precautions. Time Spent in direct patient care: 50 minutes documented in this encounter Procedure Notes * GiannaAugust - 05/14/2022 9:22 AM CST Checked electrodes and all impedances are under 10 ohms and T1 the skin looks good. F RISK OFFICER * Sean Raymundo, - 05/14/2022 8:43 AM [facility] EEG SUMMARY REPORT Patient Name: Mojgan Tabor EEG#: [id number] Recording Start Time: 18:50 PM 05/11/2022 Recording Stop Time: 15:43 PM 05/14/2022 Epoch Start Time: 05:00 AM 05/13/2022 Epoch Stop Time: 15:43 PM 05/14/2022 Clinical History: Mojgan Tabor is a 62 year old male with seizures. This continuous video EEG monitoring is ordered to evaluate for seizures. Current medications Current Facility-Administered Medications Medication ??? 0.9% NaCl injection 3 mL And ??? 0.9% NaCl injection 1-10 mL ??? artificial tears ophthalmic solution 1 drop ??? aspirin chew tablet 81 mg ??? atorvastatin (Lipitor) tablet 40 mg ??? cloBAZam (Onfi) tablet 20 mg ??? dextrose 10 % IV bolus Or ??? dextrose 10 % IV bolus ??? divalproex sprinkle (Depakote Sprinkle) capsule 1,000 mg ??? folic acid (Folvite) tablet 1 mg ??? glucagon (Glucagen) injection 1 mg ??? glucose (Diabetic Use) (Dex4 Glucose) oral liquid ??? glucose (Diabetic Use) oral gel ??? glucose chew tablet 4 tablet ??? heparin injection 5,000 Units ??? lacosamide (Vimpat) tablet 200 mg ??? levETIRAcetam (Keppra) tablet 2,000 mg ??? magnesium sulfate 4 g in 100 mL bolus ??? tamsulosin (Flomax) capsule 0.4 mg ??? thiamine (Vitamin B-1) tablet 100 mg Description This is a continuous video EEG monitoring is 21-channels; consisting of 20 channels of EEG obtainedfrom electrodes placed on the scalp according to the international 10-20 system, T1 and T2 electrodes, and one channel of EKG monitoring. Background: Epoch Start Time: 18:50 PM 05/11/2022 Epoch Stop Time: 05:00 AM 05/12/2022 The background was asymmetric, with lateralized right hemispheric slowing. The background was continuous and consisted of moderately-organized admixed polymorphic theta and alpha frequency activity of normal amplitude, more visible over the left. Variability was present. Reactivity was present. Normal sleep architecture was not seen. Epileptiform discharges were identified, occasionally over the right parietal region (P4), and rarely over the right fronto-temporal region (Fp2, F8, T2) in the form of [id number]-[id number] wave complexes. Activation procedures were not performed. Epoch Start Time: 05:00 AM 05/12/2022 Epoch Stop Time: 05:00 AM 05/13/2022 Of note, patient was disconnected from EEG from 14:05 PM to 14:36 PM on 05/12/2022. The background was asymmetric, with lateralized right hemispheric slowing. The background was continuous and consisted of moderately-organized admixed polymorphic theta and alpha frequency activity of normal amplitude, more visible over the left. Variability was present. Reactivity was present. Normal sleep architecture was not seen. Epileptiform discharges were identified, occasionally over the right parietal region (P4), and rarely over the right fronto-temporal region (Fp2, F8, T2) in the form of tgffa-[id number]-guam wave complexes. A single electrographic seizure was identified at 18:29 PM on 05/12/2022. Electrographic onset occurred in the form of faster frequency activity over the right centro-parietal region with subsequent generalization. There was possible clinical correlate in the form of tonic flexion of the left hand and non-versive leftward head turn. Duration of event was 28 seconds. Epoch Start Time: 05:00 AM 05/13/2022 Epoch Stop Time: 15:43 PM 05/14/2022 Of note, patient was disconnected from EEG from 13:23 PM to 14:53 PM on 05/14/2022. The background was asymmetric, with lateralized right hemispheric slowing. The background was continuous and consisted of moderately-organized admixed polymorphic theta and alpha frequency activity of normal amplitude, more visible over the left. Variability was present. Reactivity was present. Normal sleep architecture was identified in the form of sleep spindles and K-complexes, that were poorly-formed. Epileptiform discharges were identified, rarely over the right parietal region, rarely over the right fronto-temporal region, and rarely over the left temporal region, in the form of osyva-caq-nrqo wave complexes. There was a decrease in the occurrence of discharges during this epoch. Activation procedures were not performed. EKG was observed throughout the recording. IMPRESSION This is an abnormal cEEG due to 1) a single right centro-parietal onset seizure (at 18:29 PM on 05/12/2022), 2) epileptiform discharges over the right parietal, right fronto-temporal, and left temporal regions, 3) lateralized right hemispheric slowing, and 4) generalized slowing. CLINICAL CORRELATION: Between 05/11/2022 to 05/12/2022, this study was suggestive of an increased tendency towards seizures, lateralized right hemispheric dysfunction, and mild encephalopathy. Between 05/12/2022 to 05/13/2022, this study identified one right centro- parietal onset seizure (n = 1). There was possible clinical correlate in the form of tonic flexion of the left hand and non-versive leftward head turn. This study was additionally suggestive of an increased tendency towards seizures, lateralized right hemispheric dysfunction, and mild encephalopathy. Between 05/13/2022 to 05/14/2022, this study was suggestive of an increased tendency towards seizures. There was a decrease in the occurrence of epileptiform discharges during this epoch. The study was additionally suggestive of lateralized right hemispheric dysfunction, and mild encephalopathy. Ck Lorenzo MD I personally reviewed this study in its entirety and formulated the above report. Sean Raymundo DO F RISK OFFICER * Loraine Vargas - 05/14/2022 5:49 AM CST GELLED A1,IMPEDANCES LESS THAN 10 KOHMS,PARTIAL VITALS RECORDED ON EEG F RISK OFFICER * Sean Raymundo DO - 05/13/2022 8:52 AM [facility] EEG REPORT Patient Name: Mojgan Tabor EEG#: [id number] Recording Start Time: 18:50 PM 05/11/2022 Epoch Start Time: 05:00 AM 05/12/2022 Epoch Stop Time: 05:00 AM 05/13/2022 Clinical History: Mojgan Tabor is a 62 year old male with seizures. This continuous video EEG monitoring is ordered to evaluate for seizures. Current medications Current Facility-Administered Medications Medication ??? 0.9% NaCl infusion ??? 0.9% NaCl injection 3 mL And ??? 0.9% NaCl injection 1-10 mL ??? cloBAZam (Onfi) tablet 20 mg ??? dextrose 10 % IV bolus Or ??? dextrose 10 % IV bolus ??? glucagon (Glucagen) injection 1 mg ??? glucose (Diabetic Use) (Dex4 Glucose) oral liquid ??? glucose (Diabetic Use) oral gel ??? glucose chew tablet 4 tablet ??? heparin injection 5,000 Units ??? lacosamide (Vimpat) tablet 200 mg ??? levETIRAcetam (Keppra) tablet 2,000 mg ??? magnesium sulfate 4 g in 100 mL bolus ??? valproic acid (Depakene) solution 1,000 mg Description This is a continuous video EEG monitoring is 21-channels; consisting of 20 channels of EEG obtainedfrom electrodes placed on the scalp according to the international 10-20 system, T1 and T2 electrodes, and one channel of EKG monitoring. Background: Epoch Start Time: 18:50 PM 05/11/2022 Epoch Stop Time: 05:00 AM 05/12/2022 The background was asymmetric, with lateralized right hemispheric slowing. The background was continuous and consisted of moderately-organized admixed polymorphic theta and alpha frequency activity of normal amplitude, more visible over the left. Variability was present. Reactivity was present. Normal sleep architecture was not seen. Epileptiform discharges were identified, occasionally over the right parietal region (P4), and rarely over the right fronto-temporal region (Fp2, F8, T2) in the form of [id number] wave complexes. Activation procedures were not performed. Epoch Start Time: 05:00 AM 05/12/2022 Epoch Stop Time: 05:00 AM 05/13/2022 Of note, patient was disconnected from EEG from 14:05 PM to 14:36 PM on 05/12/2022. The background was asymmetric, with lateralized right hemispheric slowing. The background was continuous and consisted of moderately-organized admixed polymorphic theta and alpha frequency activity of normal amplitude, more visible over the left. Variability was present. Reactivity was present. Normal sleep architecture was not seen. Epileptiform discharges were identified, occasionally over the right parietal region (P4), and rarely over the right fronto-temporal region (Fp2, F8, T2) in the form of uqnsx-gmx-prde wave complexes. A single electrographic seizure was identified at 18:29 PM on 05/12/2022. Electrographic onset occurred in the form of faster frequency activity over the right centro-parietal region with subsequent generalization. There was possible clinical correlate in the form of tonic flexion of the left hand and non-versive leftward head turn. Duration of event was 28 seconds. EKG was observed throughout the recording. IMPRESSION This is an abnormal cEEG due to 1) right centro-parietal onset seizure, 2) epileptiform discharges over the right parietal and right fronto-temporal region, 3) lateralized right hemispheric slowing, and 4) generalized slowing. CLINICAL CORRELATION: Between 05/11/2022 to 05/12/2022, this study was suggestive of an increased tendency towards seizures, lateralized right hemispheric dysfunction, and mild encephalopathy. Between 05/12/2022 to 05/13/2022, this study identified one right centro- parietal onset seizure (n = 1). There was possible clinical correlate in the form of tonic flexion of the left hand and non-versive leftward head turn. This study was additionally suggestive of an increased tendency towards seizures, lateralized right hemispheric dysfunction, and mild encephalopathy. Ck Lorenzo MD I personally reviewed this study in its entirety and formulated the above report. Sean Raymundo DO F RISK OFFICER * Hansa Davis - 05/13/2022 8:35 AM CSTProcedure(s): EEG VIDEO MONITORING Checked pt, all impedences below 10 K ohms, vitals noted, stimulations conducted, as well as noted. F RISK OFFICER * Loraine Vargas - 05/13/2022 6:08 AM CST IMPEDANCES LESS THAN 10 KOHMS,PARTIAL VITALS RECORDED ON EEG F RISK OFFICER * Hansa Davis - 05/12/2022 10:16 AM CSTProcedure(s): EEG VIDEO MONITORING Checked pt along with MC. Vitals were noted, stimulation was conducted, as well as noted, and corrections in impedences were made to O1, A1, AND P3. F RISK OFFICER * Sean Raymundo DO - 05/12/2022 9:48 AM [facility] EEG REPORT Patient Name: Mojgan Tabor EEG#: [id number] Recording Start Time: 18:50 PM 05/11/2022 Epoch Start Time: 18:50 PM 05/11/2022 Epoch Stop Time: 05:00 AM 05/12/2022 Clinical History: Mojgan Tabor is a 62 year old male with seizures. This continuous video EEG monitoring is ordered to evaluate for seizures. Current medications Current Facility-Administered Medications Medication ??? 0.9% NaCl infusion ??? 0.9% NaCl injection 3 mL And ??? 0.9% NaCl injection 1-10 mL ??? cloBAZam (Onfi) tablet 20 mg ??? dextrose 10 % IV bolus Or ??? dextrose 10 % IV bolus ??? glucagon (Glucagen) injection 1 mg ??? glucose (Diabetic Use) (Dex4 Glucose) oral liquid ??? glucose (Diabetic Use) oral gel ??? glucose chew tablet 4 tablet ??? heparin injection 5,000 Units ??? lacosamide (Vimpat) injection 200 mg ??? levETIRAcetam (Keppra) 2,000 mg in 0.9% NaCl IV 270 mL IVPB ??? valproate (Depacon) 1,000 mg in 0.9% NaCl IV 60 mL IVPB Current Outpatient Medications Medication Sig ??? acetaminophen [...] Constipation ??? cloBAZam (Onfi) 10 MG tablet Take 2 (two) tablets by mouth 2 times daily ??? divalproex DR (Depakote) 500 MG tablet Take 2 (two) tablets by mouth 2 times daily ??? folic acid (Folvite) 1 MG tablet 1 (one) tablet by Enteral Tube route once daily ??? lacosamide (Vimpat) 200 MG tablet Take 1 (one) tablet by mouth 2 times daily ??? levETIRAcetam (Keppra) 1000 MG tablet Take 2 (two) tablets by mouth 2 times daily ??? polyethylene glycol 3350 (Miralax) 17 g packet Take 17 (seventeen) g by mouth once daily ??? tamsulosin (Flomax) 0.4 MG capsule Take 1 (one) capsule by mouth once daily At the same time every day after a meal. ??? thiamine (Vitamin B-1) 100 MG tablet 1 (one) tablet by Enteral Tube route once daily Description This is a continuous video EEG monitoring is 21-channels; consisting of 20 channels of EEG obtainedfrom electrodes placed on the scalp according to the international 10-20 system, T1 and T2 electrodes, and one channel of EKG monitoring. Background: Epoch Start Time: 18:50 PM 05/11/2022 Epoch Stop Time: 05:00 AM 05/12/2022 The background was asymmetric, with lateralized right hemispheric slowing. The background was continuous and consisted of moderately-organized admixed polymorphic theta and alpha frequency activity of normal amplitude, more visible over the left. Variability was present. Reactivity was present. Normal sleep architecture was not seen. Epileptiform discharges were identified, occasionally over the right parietal region (P4), and rarely over the right fronto-temporal region (Fp2, F8, T2) in the form of [id number]-tic-mtsr wave complexes. Activation procedures were not performed. EKG was observed throughout the recording. IMPRESSION This is an abnormal cEEG due to 1) epileptiform discharges over the right parietal and right fronto-temporal region, 2) lateralized right hemispheric slowing, and 3) generalized slowing. CLINICAL CORRELATION: Between 05/11/2022 to 05/12/2022, this study was suggestive of an increased tendency towards seizures, lateralized right hemispheric dysfunction, and mild encephalopathy. Ck Lorenzo MD I personally reviewed this study in its entirety and formulated the above report. Sean Raymundo DO F RISK OFFICER * Shanice Jacinto - 05/11/2022 7:00 PM CST Pt hooked up to cEEG with MRI compatible leads. F RISK OFFICER documented in this encounter Consult Notes * Christiano Flores MD - 05/13/2022 4:34 PM CSTAssociated Order(s): IP CONSULT TO OTOLARYNGOLOGY Images from the original note were not included. Otolaryngology-Head and Neck Surgery Consultation Note PATIENT INFORMATION Mojgan Tabor 62 year old male Today's Date: 05/13/2022 CC: Chief Complaint Patient presents with ??? Seizure Reason for consult: Zenker Diverticulum Consulting Service: Dr. Merida HPI/ROS/Allergies HPI: Mojgan Tabor is a 62 year old male with a PMH significant for R. Occipital stroke (2014), headinjury, seizures, Alzheimer's, Right BKA, refractory epilepsy, dysphasia w/PEG tube placement on 03/25/22. 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 Admitted from SNF for multiple seizures on 05/10. SNF reported that patient recently passed swallow eval inorder to transition to PO meds for better bioavailability of anti-seizure medications given recent sub-therapeutic levels seen on labs. On admission, additional anti-seizure medications were given tobring levels to therapeutic ranges. CT head showed no acute process. Patient was seen by [employer] and failed swallow eval and recommended transition back to PEG tube feeds. Modified barium swallow on 05/12/22 was concerning for zenker diverticulum. Primary team would like ENT evaluation for any reversible causes of possible zenker diverticulum in order to potentially transition patient back to PO diet. Allergies: Allergies Allergen Reactions ??? Clonazepam Psychiatric hallucinations Review of Systems (negative unless bold): Constitutional: Fatigue, appetite change, weight change, sleep change HEENT: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 03/24/22 0258 MAGNESIUM 2.0 1.5* 1.6 Recent Labs Component Name 05/12/224 05/11/22 1309 04/01/22 0608 03/18/22 0606 03/17/22 1112 BUN 6* 10 12 - 10 CREATININE 0.51* 0.56* 0.49* - 0.53* NA 142 138 138 - 140 POTASSIUM 3.8 4.0 4.3 - 3.8 CL 111* 102 104 - 106 CO2 26 29 29 - 29 GLUCOSE 99 124* 118* - 116* CALCIUM 8.3* 9.7 9.2 - 9.0 PROT 5.7* 7.7 - - 6.2 ALB 2.5* 3.3* - - 1.8* TBILI 0.3 0.3 - - 0.2 ALKPHOS 73 102 - - 73 ALT 9 14 - - 21 AST 11 16 - - 34 ANIONGAP 9 11 9 - 9 BCR 12 18 24* - 19 OSMOLALITY 292 286 287 - 290 AGRATIO 0.8* 0.8* - - 0.4* EGFR >90 >90 >90 - >90 - = values in this interval not displayed. Pertinent Nutrition Medications: Current Facility-Administered Medications Medication ??? 0.9% NaCl infusion ??? 0.9% NaCl injection 3 mL And ??? 0.9% NaCl injection 1-10 mL ??? cloBAZam (Onfi) tablet 20 mg ??? dextrose 10 % IV bolus Or ??? dextrose 10 % IV bolus ??? glucagon (Glucagen) injection 1 mg ??? glucose (Diabetic Use) (Dex4 Glucose) oral liquid ??? glucose (Diabetic Use) oral gel ??? glucose chew tablet 4 tablet ??? heparin injection 5,000 Units ??? lacosamide (Vimpat) tablet 200 mg ??? levETIRAcetam (Keppra) tablet 2,000 mg ??? valproic acid (Depakene) capsule 1,000 mg Current Outpatient Medications Medication ??? acetaminophen (Tylenol) 325 MG tablet ??? artificial tears ophthalmic solution ??? aspirin (Aspirin) 81 MG chew tablet ??? atorvastatin (Lipitor) 40 MG tablet ??? bisacodyl (Dulcolax) 10 MG suppository ??? cloBAZam (Onfi) 10 MG tablet ??? divalproex DR (Depakote) 500 MG tablet ??? folic acid (Folvite) 1 MG tablet ??? lacosamide (Vimpat) 200 MG tablet ??? levETIRAcetam (Keppra) 1000 MG tablet ??? polyethylene glycol 3350 (Miralax) 17 g packet ??? tamsulosin (Flomax) 0.4 MG capsule ??? thiamine (Vitamin B-1) 100 MG tablet Skin/Wound: coccyx wound Nutrition Care Process (1) Nutrition Diagnostic Statement: [...] Nutrition Goal Progress: New goal established [id number] F RISK OFFICER * Crystal Hickey - 05/11/2022 2:50 PM CST Neurology Consult Note/History & Physical Patient: Mojgan Tabor Age: [age] year old Admission Date and Time: 05/11/2022 Subjective Reason for consult/Chief Complaint: Increased seizure activity History of Presenting Illness: Mojgan Tabor is a 62 year old male with a PM[facility] of [facility], prior head trauma, CVA (2014), HTN, HLD, alcohol abuse (resolved 2015), early-onset alzheimer's, PVD s/p L AKA 03/15/22, and PEG tube dependence since 03/25/2022 who presented on 05/11 due to increased seizure activity. The seizures began one day prior to admission with 4 seizures the day prior to admission and 2 the morning of. Neurology clinic was made aware and instructed patient to seek attention in the ED. HPI is limited due to patient's mental status. He reportsthat the seizures were shorter in duration than his normal seizures, which typically last 3-5 minutes. He has had poor sleep the last few nights due to being overheated. He is followed by [facility] Neurology and his medications are currently managed by his SNF caregivers. Upon chart review, Mr. Tabor was last seen at Neurology Clinic on 05/06/2022. He has epilepsy that began when he was in his 30s. He has an aura described as a feeling I am going to have a seizure. He has two ictal states: 1) Staring off events that last a few seconds, and 2) Convulsions with tongue injury that last a few minutes. His post-ictal state includes confusion, aggression, and possible paranoia that can last several days. As of 05/06/22, he was compliant with his medication regimen andhad no reported seizures since 12/2021. Of note, Mr. Tabor's anti-epileptic levels were within normal limits prior to PEG tube placement. At his last neurology visit on 05/06, his levels were valproic acid (29), Keppra (47), and lacosamide (3.5). When his seizures worsened, his medications were transitioned to oral due to concern for poor absorption. Meds switched to PO: levetiracetam 2,000 mg BID, lacosamide 200mg BID, clobazam 20 mg BID, and depakote DR 1000 mg BID. After receiving his morning medications, he was transferred to [facility] ED. No seizures were reported en route. In the ED, patient was afebrile, hemodynamically stable, and sat'ing appropriately on room air. CMP, CBC, and VBG were unremarkable. CXR was unremarkable. CT head demonstrated no acute intracranial abnormalities and no significant changes from prior. Patient was loaded with 2g keppra on arrival. Past Medical History No history on file. [...] for collateral info. Social History Social history has been reviewed and is significant for former tobacco smoker (15 pack years) and no alcohol use since 2016. Review of Systems Unable to perform due to mental status change Objective BP 143/93 Pulse 95 Temp 98.4 ??F (36.9 ??C) Resp 20 Ht 5' 8 (1.727 m) Wt 104 lb 15 oz (47.6 kg) SpO2 97% Temp (30hrs) Max:98.4 ??F (36.9 ??C) Body mass index is 15.96 kg/m??. Exam: General: Lethargic, unable to stay awake for exam, responsive for a few minutes then stares off to right side and falls asleep Con - NAD, afebrile Heent - NCAT, MMM, anicteric Neck - No JVD, LAD, trachea midline CV - RRR for age, normal s1/s2, no m/r/g Pulm - CTAB, no w/r/r Abd - BS+ Ext: No c/c/e, left AKA Cortical Function Mental Status Awake but lethargic, follows commands intermittently Orientation Person, place, time, and situation Language Fluency intact, comprehension intact Visual Ivan Intact bilaterally to confrontation Neglect No visual neglect noted, no tactile neglect noted Cranial Nerves II Pupils 3 mm and bilaterally reactive to light. Fundoscopic exam not performed. VIII Unable to assess III/IV/ Extraocular muscles grossly intact with some oculomotor dysfunction noted with poor eye tracking IX/X Unable to assess V Unable to assess XI Head turning and shoulder shrug are intact. VII No facial palsy noted. XII Unable to assess Motor Function Movement No abnormalities noted Bulk No abnormalities noted Tone No abnormalities noted Strength Exam limited by patient effort Proximal Upper Distal Upper Proximal Lower Distal Lower Right 4/5 5/5 4/5 4/5 Left 3/5 4/5 4/5 N/a Muscle Stretch Reflexes Deferred due to lethargy Sensory Unable to perform due to lethargy Cerebellar Unable to perform due to lethargy Gait Deferred Labs: Valproic acid=29 (95) Keppra=47 (59) Lacosamide=3.5 (10.6) Recent Results (from the past 24 hour(s)) EKG 12-LEAD Collection Time: 05/11/22 12:34 PM Result Value Ref Range Ventricular Rate 99 BPM Atrial Rate 99 BPM P-R Interval 138 ms QRS Duration ms 76 ms Q-T Interval ms 332 ms QTC Calculation (Bezet) 426 ms Calculated P [place] 66 degrees Calculated R [place] 15 degrees Calculated T [place] 80 degrees Interpretation EKG NORMAL SINUS RHYTHM NORMAL ECG WHEN COMPARED WITH ECG OF 08-MAR-2022 14:05, PREMATURE VENTRICULAR COMPLEXES ARE NO LONGER PRESENT CRITERIA FOR ANTEROSEPTAL INFARCT ARE NO LONGER PRESENT BLOOD GASES ANA + COOX PANEL Collection Time: 05/11/22 1:09 PM Result Value Ref Range pH Venous 7.36 7.32 - 7.42 pH pO2 Venous 31 (L) 35 - 40 mmHg pCO2 Venous 53 (H) 40 - 50 mmHg HCO3 Venous 29.9 20 - 30 mmol/L Base Excess Venous 3.3 (H) -2.0 - 2.0 mmol/L Oxyhemoglobin Venous 43.4 % Deoxyhemoglobin (HHB) Venous % 54.8 % Methemoglobin <0.8 0.0 - 2.0 % Carboxyhemoglobin 1.2 0.0 - 2.0 % O2 Content Venous 8.0 Interpret within clinical context ml/dL Hemoglobin by COOX 13.1 12.0 - 17.6 g/dL O2 Saturation Venous 44 (L) >=70 % FI O2 Mixed Venous 21.0 % CBC W AUTO DIFFERENTIAL Collection Time: 05/11/22 1:09 PM Result Value Ref Range WBC 9.4 3.5 - 10.5 10??3/uL RBC 4.48 4.30 - 5.70 10??6/uL Hemoglobin 14.5 12.0 - 17.6 g/dL Hematocrit 43.5 35.2 - 51.7 % MCV 97.1 80.7 - 98.3 fL MCH 32.4 26.7 - 34.0 pg MCHC 33.3 30.8 - 35.9 g/dL RDW-SD 46.5 36.0 - 50.0 fL RDW-CV 13.0 11.2 - 14.8 % Platelet Count 177 150 - 400 10??3/uL MPV 12.2 9.4 - 12.9 fL nRBC Absolute 0.00 0 10??3/uL nRBC Auto 0.0 0 /100 WBC Neutrophils % 65.8 35.0 - 70.0 % Lymphocytes % 25.9 20.0 - 43.0 % Monocytes % 7.2 5.0 - 13.0 % Eosinophils % 0.7 0.0 - 6.0 % Basophil % 0.1 0.0 - 2.0 % Neutrophils Absolute 6.18 1.60 - 7.00 10??3/uL Lymphocyte Absolute 2.43 1.10 - 3.90 10??3/uL Monocytes Absolute 0.68 0.26 - 1.07 10??3/uL Eosinophils Absolute 0.07 0.00 - 0.47 10??3/uL Basophils Absolute 0.01 0.00 - 0.08 10??3/uL Immature Granulocytes % 0.3 0.0 - 1.0 % Immature Granulocytes Absolute 0.03 COMPREHENSIVE METABOLIC PANEL Collection Time: 05/11/22 1:09 PM Result Value Ref Range BUN 10 7 - 26 mg/dL Creatinine 0.56 (L) 0.71 - 1.16 mg/dL Sodium 138 136 - 145 mmol/L Potassium 4.0 3.5 - 4.5 mmol/L Chloride 102 98 - 107 mmol/L CO2 29 22 - 29 mmol/L Glucose 124 (H) 70 - 115 mg/dL Calcium 9.7 8.4 - 10.2 mg/dL Protein Total 7.7 6.0 - 8.3 g/dL Albumin 3.3 (L) 3.4 - 5.0 g/dL Bilirubin Total 0.3 0.2 - 1.2 mg/dL Alkaline Phosphatase 102 40 - 150 U/L ALT 14 5 - 55 U/L AST 16 5 - 34 U/L Anion Gap 11 8 - 18 BUN/Creatinine Ratio 18 7 - 23 Osmolality Calculated 286 270 - 300 mOsm/kg Albumin/Globulin Ratio 0.8 (L) 1.1 - 2.3 eGFR by CKD-EPI >90 >=90 mL/min/1.73 m2 PT-INR [facility] Collection Time: 05/11/22 1:09 PM Result Value Ref Range PT 13.5 12.1 - 14.8 Seconds INR 1.0 See Comment EEG: Last EEG was 03/16-03/17 consistent with increased tendency towards seizure, R hemispheric structural or functional dysfunction, and mild encephalopathy. Neuroimaging: Head CT 05/11/22: IMPRESSION: ?? 1. No acute intracranial abnormality. 2. No significant change since 03/17/2022. > Interpreting Provider: Latrice Ortiz MD on 05/11/2022 3:37 PM Assessment and Plan: Mojgan Tabor is a 62 year old male with a PMH of refractory epilepsy followed by [facility], priorhead trauma, early onset Alzheimer's, CVA (2014), alcohol abuse (resolved 2015), HTN. HLD, PVD s/p L AKA (02/2022) and PEG tube dependence since 03/25/2022 who presented on 05/11 with breakthrough seizures in the setting of subtherapeutic antiepileptic levels. His refractory epilepsy is most likelydue to malabsorption of antiepileptics from enteral administration given timing of decrease in levels after placement of PEG tube. Non-compliance is less likely due to prior appropriate ASM levels and SNF management of medicine. An infectious cause is also less likely due to lack of fever; pending UA and respiratory panel. A metabolic cause can also be considered due to recent AKA and PEG tube placement, but this is less likely due to normal CMP. Given no acute changes in CT head, a vascular cause for increased seizure activity is low on the differential. Physical exam was concerning for suspected continued seizures due to episodes of staring off and lethargy during interview. #Refractory Seizure - Concern for continued seizures due to episodes of staring to the right and increased lethargy during interview in ED - Recently seen at Epilepsy clinic on 05/06 with no reported seizure events from SNF at that time and continued current ASM regimen - Has history of noncompliance but has recently been compliant with medications demonstrated by therapeutic ASM levels and improved management of medications - CT head unremarkable, CXR negative - Respiratory panel and Urinalysis negative - s/p 2g keppra load by ED Recommendations: - Continuous EEG ordered due to concern for active seizures - UA & respiratory panel to rule out infection as source of seizure - 1g load of Valproic Acid IV - NPO due to concern for swallowing difficulty - Maintenance IVF - 10 mg Clobazam liquid form now through PEG; 10 mg given at fpc this AM - Continue home meds, defer oral for now: - Valproic Acid IV 1000 mg BID - Levetiracitam IV 2000 mg BID - Lacosamide IV 200 mg BID - Clobazam suspension 20 mg BID via PEG - Seizure precautions - Keep Mg >2 Discussed with Senior Neurology Resident, Dr. Nemesio Rojas Shiloh Hickey MS3 F RISK OFFICER Associated attestation - Baldev Carl MD - 05/12/2022 3:00 PM CHIEF RISK OFFICER NEUROLOGY ATTENDING This is a Medical Student Note for educational purposes only. Please see my addendum to resident note from today. documented in this encounter ED Notes * Tiffani Gilbert RN - 05/12/2022 9:06 PM CST colbazam dose sent to floor with 6 N charge nurse transporting patient to floor. F RISK OFFICER * Elizabeth Hernandez MD - 05/12/2022 3:00 PM CST ASSUMED CARE NOTE Patient signed out to me by Dr. Little at 3:00 PM. Briefly, Mojgan Tabor is a 62 year old male is being evaluated for Seizure. At this time the patient's condition is stable. Plan is admission to neurology pending bed availability. Vitals: 05/12/22 0602 05/12/22 0810 05/12/22 1201 05/12/22 1617 BP: 123/76 131/77 132/81 147/82 Pulse: 79 79 70 Resp: 17 18 14 17 Temp: 98.6 ??F (37 ??C) 98.4 ??F (36.9 ??C) SpO2: 95% 96% 96% 96% Weight: Height: ED Course: 6:15 PM: Patient at this time has a bed assigned with neurology service. Patient to be transferred to their inpatient bed. Clinical Impression: 1. Seizures (CMS/HCC) Disposition: Admission to neurology. By signing my name below, IMichele, attest that this documentation has been prepared under the direction and in the presence of Dr. Hernandez. Signed: Laisha Torres. I, Dr. Hernandez, personally performed the services described in this documentation. All medical recordentries made by the scribe were at my direction and in my presence. I have reviewed the chart and agree that the record reflects my personal performance and is accurate and complete. Electronically signed: Dr. Hernandez Date: 05/12/22 Time: 10:21 PM F RISK OFFICER * Shane Little MD - 05/12/2022 7:51 AM CST ASSUMED CARE NOTE Patient seen as a team with Drs. Ivy and Kingsley who has also contributed to this note. Patient signed out to me by Dr. Vega at 7:00 AM. Briefly, Mojgan Tabor is a 62 year old male with a past medical history that includes COVID 19, HTN, and COVID-19, is being evaluated for seizures. At this time the patient's condition is stable. Pending neurology bed. Plan is admit to neurology pending bed. Vitals: 05/12/22 0457 05/12/22 0602 05/12/22 0810 05/12/22 1201 BP: 109/71 123/76 131/77 132/81 Pulse: 79 79 79 70 Resp: 16 17 18 14 Temp: 98.6 ??F (37 ??C) 98.4 ??F (36.9 ??C) SpO2: 95% 95% 96% 96% Weight: Height: ED Course: --No acute changes under my care. 1500: Patient signed out to Dr. Hernandez. At this time the patient's condition is stable. Pending neurology bed. Disposition WILSON to Dr. Hernandez. Clinical Impression: 1. Seizures (CMS/HCC) Disposition: Admit to neurology. WILSON to Dr. Hernandez. By signing my name below, I, Toan Garrido, attest that this documentation has been prepared under the direction and in the presence of Dr. Little. Signed: Laisha Power. I, Dr. Little, personally performed the services described in this documentation. All medical record entries made by the scribe were at my direction and in my presence. I have reviewed the chart andagree that the record reflects my personal performance and is accurate and complete. F RISK OFFICER * Kortney Vega MD - 05/11/2022 11:07 PM CST ASSUMED CARE NOTE Patient signed out to me by Dr. Hernandez at 11:08 PM. Briefly, Mojgan Tabor is a 62 year old male is being evaluated for seizures. At this time the patient's condition is Stable. Thus far, studies reassuring. No studies outstanding. Admitted to Neurology. Vitals: 05/11/22 1232 05/11/22 1705 05/11/22 2141 05/11/22 2201 BP: 143/93 124/76 147/84 Pulse: 95 83 82 Resp: 15 Temp: SpO2: 97% 99% 97% 97% Weight: 47.6 kg (104 lb 15 oz) Height: 1.727 m (5' 8 ) ED Course: 23:45 Patient sleeping comfortably P 85, RR 15, BP 110/71, pulse ox 98% No events on shift 07:[address] Little pending available bed Clinical Impression: 1. Seizures (CMS/HCC) Disposition: Admit Neurology WILSON Dr. Little pending available bed F RISK OFFICER * Elizabeth Hernandez MD - 05/11/2022 6:30 PM CST Took over care dr. adams -- pt admitted to gen neuro for breakthrough sz. 1830 eeg being attached. He is alert, cooperative. vss [id number] Vega pending inpt bed F RISK OFFICER * Wood Roa RN - 05/11/2022 5:09 PM CST Bed: AC28 Expected date: Expected time: Means of arrival: Comments: T2 when ready for eeg F RISK OFFICER * Leonardo Adams MD - 05/11/2022 12:39 PM CST ED Attending Note I have personally seen, examined and been fully involved in the management of this patient with theresident who has contributed to this note. History: Mojgan Tabor is a 62 year old male with PMHx of TBI with seizure disorder who is presenting to the ED for evaluation of multiple seizures. EMS reports that the patient has a long history of seizure disorder, stating that he typically has a seizure after prolonged periods without medication changes.EMS does note that the patient's medications are typically controlled by his sister, who appropriately dispenses the medications daily. However, patient was noted to have four seizures yesterday, andanother two seizures this morning before staff opted to call EMS. Patient now complains of generalized headache, but is otherwise unable to answer further questions about the events of the last day. H PI may be limited 2/2 mental status change. Past Medical History: Diagnosis Date ??? CVA [...] Unable to perform ROS: Mental status change Respiratory: Negative for shortness of breath. Cardiovascular: Negative for chest pain. Gastrointestinal: Negative for abdominal pain. Neurological: Positive for seizures and headaches. Patient Vitals for the past 6 hrs: Temp Pulse Resp BP 05/11/22 1232 -- 95 -- 143/93 05/11/22 1230 98.4 ??F (36.9 ??C) 92 20 143/97 Exam: Physical Exam Constitutional: Appearance: He is ill-appearing. HENT: Head: Normocephalic and atraumatic. Eyes: Pupils: Pupils are equal, round, and reactive to light. Cardiovascular: Rate and Rhythm: Normal rate and regular rhythm. Pulmonary: Effort: Pulmonary effort is normal. Breath sounds: Normal breath sounds. Abdominal: General: Bowel sounds are normal. There is no distension. Palpations: Abdomen is soft. Tenderness: There is no abdominal tenderness. Comments: G-tube in place Musculoskeletal: General: No deformity. Cervical back: Neck supple. Left Lower Extremity: Left leg is amputated below knee. Skin: General: Skin is warm and dry. Neurological: Mental Status: He is alert. Comments: Oriented to person and place, not oriented to time Medical Decision Makin. Seizure DDX: Breakthrough seizure vs medication noncompliance vs intercranial mass vs UTI vs pneumonia vs other infection vs other Plan: Labs, VBG, CT Head, CXR, UA Results: Labs Reviewed BLOOD GASES ANA + COOX PANEL - Abnormal; Notable for the following components: Result Value pO2 Venous 31 (*) pCO2 Venous 53 (*) Base Excess Venous 3.3 (*) O2 Saturation Venous 44 (*) All other components within normal limits Narrative: Carboxyhemoglobin Normal Concentration: Non-smokers: 0-2%; Smokers: 0-9%; Toxic: >20% COMPREHENSIVE METABOLIC PANEL - Abnormal; Notable for the following components: Creatinine 0.56 (*) Glucose 124 (*) Albumin 3.3 (*) Albumin/Globulin Ratio 0.8 (*) All other components within normal limits URINALYSIS REFLEX TO MICROSCOPIC NO CULTURE - Abnormal; Notable for the following components: Glucose UA Trace (*) Ketone UA Trace (*) Urobilinogen UA 4.0 (*) Amorphous Crystals Rare (*) All other components within normal limits Narrative: MAGNESIUM BLOOD - Abnormal; Notable for the following components: Magnesium 1.5 (*) All other components within normal limits [...] acid amplification assay performance was validated by [facility]. This test has been authorized by [...] this EUA assay are available upon request. PT-INR [facility] - Normal TROPONIN I - Normal CBC W AUTO DIFFERENTIAL TROPONIN I CT HEAD NON CONTRAST - suspected intracranial hemorrhage Final Result PROCEDURE: CT HEAD WO CONTRAST, DATE/TIME OF EXAM: 05/11/2022 2:27 PM, LOCATION [facility] INDICATION: R56.9: Seizures (CMS/HCC) ADDITIONAL CLINICAL INFORMATION: Ordering Provider Reason For Exam: seizure Technologist Note: Additional: COMPARISON: CT head without contrast 03/17/2022 EXAMINATION: CT scan of the head without intravenous contrast TECHNIQUE: CT of the head was performed without intravenous contrast according to standard protocol. CT dose reduction technique was used, including Automated Exposure Control. 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 Small old infarcts are also seen in the left cerebellum, left para midline isabella, bilateral thalami and left basal ganglia. Moderate chronic microvascular ischemic changes are seen in the supratentorial white matter. There is moderate generalized cerebral volume loss and severe cerebellar/brainstem volume loss. There is complete opacification of the right maxillary sinus with heterogeneous material extending into the right nasal cavity through a widened ostium suggesting antrochoanal polyp. Old fracture of the left medial orbital wall is seen. A 1.6 cm sebaceous cyst is seen in the left para midline occipital scalp. Cerumen is seen in the right external auditory canal. IMPRESSION: 1. No acute intracranial abnormality. 2. No significant change since 03/17/2022. Report dictated by Quan Nguyễn MD (residential program coordinator). Latrice Thomason MD have personally reviewed and interpreted this examination/study. > Interpreting Provider: Latrice Ortiz MD on 05/11/2022 3:37 PM XR CHEST 1VW PORTABLE Final Result PROCEDURE: XR CHEST 1VW PORTABLE, DATE/TIME OF EXAM: 05/11/2022 12:51 PM, LOCATION [facility] INDICATION: R56.9: Seizures (CMS/HCC) ADDITIONAL CLINICAL INFORMATION: Ordering Provider Reason For Exam: seizure COMPARISON: X-ray chest 03/17/2022 TECHNIQUE: Frontal radiograph of the chest. FINDINGS: There is no consolidation, pleural effusion, or pneumothorax. . The cardiomediastinal silhouette is normal in size.. The visible bony thorax is intact. Hyperdensity lateral to the proximal thoracic trachea may represent ingested materials or be external to the patient on this AP view. Hyperdense ingested material seen within the splenic flexure. IMPRESSION: No acute pulmonary process. Report dictated by Ashu Welch M.D. (residential program coordinator) KOBE Thomason MD have personally reviewed and interpreted this examination/study. > Interpreting Provider: KOBE RUBIO MD on 05/11/2022 1:29 PM ED course: The patient's Oxygen Saturation Monitor was interpreted by me. The reading was 99%. The patient wason RA at the time of the reading. This is interpreted as normal. EKG Interpretation 05/11/2022 Time: 12:34 PM R&R: NSR with a ventricular rate of 99 bpm. Additional Findings: Normal EKG. 1:42 PM: Discussed all the pertinent aspects of the case with Neurology who will see the patient. 3:33 PM: Notified by RN that patient had another witnessed seizure, despite being loaded with Keppra. 4:37 PM: After discussion with Neurology, the patient will be admitted to their service for furthermanagement of care. -I have reviewed the diagnostic findings with the patient and they have had an opportunity to ask me any questions they have about care, diagnosis, and reason for admission. The patient states understanding and agrees to admission. 6:00 PM: Patient signed out to oncoming team, pending inpatient bed availability Consult Yes 1. Neurology Procedure done at this time No Ultrasound done at this time No Orders Placed This Encounter ??? SARS-COV-2 (COVID-19)+INFLU A+B PCR RAPID ??? CT HEAD NON CONTRAST - suspected intracranial hemorrhage ??? XR CHEST 1VW PORTABLE ??? BLOOD GASES ANA + COOX PANEL ??? CBC W AUTO DIFFERENTIAL ??? COMPREHENSIVE METABOLIC PANEL ??? PT-INR [facility] ??? TROPONIN I ??? URINALYSIS REFLEX TO MICROSCOPIC NO CULTURE ??? MAGNESIUM BLOOD ??? CBC W AUTO DIFFERENTIAL ??? COMPREHENSIVE METABOLIC PANEL ??? MAGNESIUM BLOOD ??? PHOSPHORUS BLOOD ??? HEMOGLOBIN A1C ??? IP CONSULT TO NEUROLOGY ??? OXYGEN ??? PULSE OXIMETRY, CONTINUOUS ??? EKG 12-LEAD ??? EKG 12-LEAD ??? EEG VIDEO MONITORING ??? 0.9% NaCl IV bolus ??? DISCONTD: levETIRAcetam (Keppra) 2,000 mg in 0.9% NaCl IV 270 mL IVPB ??? DISCONTD: prochlorperazine (Compazine) injection 10 mg ??? lactated ringers IV bolus ??? AND Linked Order Group ??? levETIRAcetam (Keppra) 1,000 mg in 100 mL IVPB ??? levETIRAcetam (Keppra) 1,000 mg in 100 mL IVPB ??? levETIRAcetam (Keppra) 1,000 mg in 100 mL IVPB ADS Med ??? valproate (Depacon) 1,000 mg in 0.9% NaCl IV 60 mL IVPB ??? levETIRAcetam (Keppra) 2,000 mg in 0.9% NaCl IV 270 mL IVPB ??? cloBAZam (Onfi) tablet 10 mg ??? cloBAZam (Onfi) tablet 20 mg ??? valproate (Depacon) 1,000 mg in 0.9% NaCl IV 60 mL IVPB ??? lacosamide (Vimpat) injection 200 mg ??? AND Linked Order Group ??? 0.9% NaCl injection 3 mL ??? 0.9% NaCl injection 1-10 mL ??? heparin injection 5,000 Units ??? 0.9% NaCl infusion ??? glucose (Diabetic Use) (Dex4 Glucose) oral liquid ??? glucose (Diabetic Use) oral gel ??? glucose chew tablet 4 tablet ??? OR Linked Order Group ??? dextrose 10 % IV bolus ??? dextrose 10 % IV bolus ??? glucagon (Glucagen) injection 1 mg ??? magnesium sulfate 4 g in 100 mL bolus Medications levETIRAcetam (Keppra) 1,000 mg in 100 mL IVPB ADS Med ( Not Administered 05/11/22 1615) levETIRAcetam (Keppra) 2,000 mg in 0.9% NaCl IV 270 mL IVPB (has no administration in time range) cloBAZam (Onfi) tablet 20 mg (has no administration in time range) valproate (Depacon) 1,000 mg in 0.9% NaCl IV 60 mL IVPB (has no administration in time range) lacosamide (Vimpat) injection 200 mg (has no administration in time range) 0.9% NaCl injection 3 mL (3 mL Intracatheter Not Administered 05/11/22 1651) And 0.9% NaCl injection 1-10 mL (has no administration in time range) heparin injection 5,000 Units (5,000 Units Subcutaneous $ Given 05/11/22 1705) 0.9% NaCl infusion ( Intravenous $ New Bag/Syringe 05/11/22 1647) glucose (Diabetic Use) (Dex4 Glucose) oral liquid (has no administration in time range) glucose (Diabetic Use) oral gel (has no administration in time range) glucose chew tablet 4 tablet (has no administration in time range) dextrose 10 % IV bolus (has no administration in time range) Or dextrose 10 % IV bolus (has no administration in time range) glucagon (Glucagen) injection 1 mg (has no administration in time range) magnesium sulfate 4 g in 100 mL bolus (has no administration in time range) 0.9% NaCl IV bolus (1,000 mL Intravenous $ Bolus New Bag 05/11/22 1617) lactated ringers IV bolus (500 mL Intravenous $ Bolus New Bag 05/11/22 1412) levETIRAcetam (Keppra) 1,000 mg in 100 mL IVPB (1,000 mg Intravenous $ Bolus New Bag 05/11/22 1536) And levETIRAcetam (Keppra) 1,000 mg in 100 mL IVPB (1,000 mg Intravenous $ Bolus New Bag 05/11/22 1535) valproate (Depacon) 1,000 mg in 0.9% NaCl IV 60 mL IVPB (0 mg Intravenous Stopped 05/11/22 1722) cloBAZam (Onfi) tablet 10 mg (10 mg Enteral Tube $ Given 05/11/22 1703) Clinical Impression: 1. Seizures (CMS/HCC) Disposition: Admit to Neurology By signing my name below, I, Pia Xie, attest that this documentation has been prepared under the direction and in the presence of Dr. Adams. Signed: Laisha Tejada. I, Dr. Adams, personally performed the services described in this documentation. All medical record entries made by the scribe were at my direction and in my presence. I have reviewed the chart and agree that the record reflects my personal performance and is accurate and complete. F RISK OFFICER * Tameka Patel RN - 05/11/2022 12:28 PM CST Pt arrived by EMS from a long term facility with multiple seizures starting yesterday afternoon. His sister reported two seizures yesterday afternoon, 2 more yesterday evening, 2 more this morning.She said his seizures are well-controlled for a while then his medications need to be readjusted. He has a hx of a TBI and L below the knee amputation due to untreated PVD. EMS said there was noseizure activity in route.Pt also has a feeding tube placed F RISK OFFICER * Wood Roa RN - 05/11/2022 12:27 PM CST Bed: T02 Expected date: Expected time: Means of arrival: Comments: [facility], SNF--seizure F RISK OFFICER documented in this encounter Plan of Treatment Upcoming Encounters Date Type Department Care Team (Late st Contact Info) Description 12/05/2024 1:00 PM CDT Office Visit [facility] - Neurology [address] [place] [address], [place] [id number] Sean Raymundo, DO [address] [place] [address] [place] [address] Scheduled Orders Name Type Priority Associated Diagnoses Orde r Schedule EKG 12-LEAD ECG STAT Seizures (HCC) ONCE for 1 Occurrences starting 05/11/2022 until 05/11/2022 documented as of this encounter Procedures Procedure Name Priority Date/Time Associated Diagnosis Comments FL ESOPHAGRAM Routine 05/14/2022 2:15 PM CHIEF RISK OFFICER Oropharyngeal dysphagia GLUCOSE - POINT OF CARE Routine 05/14/2022 3:48 AM CHIEF RISK OFFICER CBC W AUTO DIFFERENTIAL Routine 05/14/2022 3:10 AM CHIEF RISK OFFICER COMPREHENSIVE METABOLIC PANEL Routine 05/14/2022 3:10 AM CHIEF RISK OFFICER PHOSPHORUS BLOOD Routine 05/14/2022 3:10 AM CHIEF RISK OFFICER MAGNESIUM BLOOD Routine 05/14/2022 3:10 AM CHIEF RISK OFFICER GLUCOSE - POINT OF CARE Routine 05/14/2022 12:14 AM CHIEF RISK OFFICER GLUCOSE - POINT OF CARE Routine 05/13/2022 8:36 PM CHIEF RISK OFFICER GLUCOSE - POINT OF CARE Routine 05/13/2022 4:34 PM CHIEF RISK OFFICER GLUCOSE - POINT OF CARE Routine 05/13/2022 7:39 AM CHIEF RISK OFFICER CBC W AUTO DIFFERENTIAL Routine 05/13/2022 7:24 AM CHIEF RISK OFFICER COMPREHENSIVE METABOLIC PANEL Routine 05/13/2022 7:24 AM CHIEF RISK OFFICER PHOSPHORUS BLOOD Routine 05/13/2022 7:24 AM CHIEF RISK OFFICER MAGNESIUM BLOOD Routine 05/13/2022 7:24 AM CHIEF RISK OFFICER VALPROIC ACID LEVEL Routine 05/13/2022 7 :24 AM CHIEF RISK OFFICER Seizures (HCC) GLUCOSE - POINT OF CARE Routine 05/13/2022 4:31 AM CHIEF RISK OFFICER GLUCOSE - POINT OF CARE Routine 05/13/2022 12:44 AM CHIEF RISK OFFICER GLUCOSE - POINT OF CARE Routine 05/12/2022 4:01 PM CHIEF RISK OFFICER FL SWALLOWING FUNCTION STUDY STAT 05/12/2022 2:41 PM CHIEF RISK OFFICER Seizures (HCC) GLUCOSE - POINT OF CARE Routine 05/12/2022 1:03 PM CHIEF RISK OFFICER CARDIAC EKG ORDER 05/12/2022 8:5 6 AM CHIEF RISK OFFICER GLUCOSE - POINT OF CARE Routine 05/12/2022 8:32 AM CHIEF RISK OFFICER GLUCOSE - POINT OF CARE Routine 05/12/2022 5:40 AM CHIEF RISK OFFICER HEMOGLOBIN A1C RINKU 05/12/2022 3:14 AM CHIEF RISK OFFICER Seizures (HCC) CBC W AUTO DIFFERENTIAL STAT 05/12/2022 3:14 AM CHIEF RISK OFFICER COMPREHENSIVE METABOLIC PANEL STAT 05/12/2022 3:14 AM CHIEF RISK OFFICER PHOSPHORUS BLOOD STAT 05/12/2022 3:14 AM CHIEF RISK OFFICER MAGNESIUM BLOOD STAT 05/12/2022 3:14 AM CHIEF RISK OFFICER TROPONIN I Timed 05/11/2022 6:33 PM CHIEF RISK OFFICER MAGNESIUM BLOOD STAT 05/11/2022 4:24 PM CHIEF RISK OFFICER URINALYSIS REFLEX TO MICROSCOPIC NO CULTURE STAT 05/11/2022 4:15 PM CHIEF RISK OFFICER SARS-COV-2 (COVID-19)+INFLU A+B PCR RAPID STAT 05/11/2022 4:06 PM CHIEF RISK OFFICER TROPONIN I Timed 05/11/2022 4:06 PM CHIEF RISK OFFICER CT HEAD WO CONTRAST STAT 05/11/2022 2 :16 PM CHIEF RISK OFFICER Seizures (HCC) PT-INR [facility] STAT 05/11/2022 1:09 PM CHIEF RISK OFFICER BLOOD GASES ANA + COOX PANEL STAT 05/11/2022 1:09 PM CHIEF RISK OFFICER CBC W AUTO DIFFERENTIAL STAT 05/11/2022 1:09 PM CHIEF RISK OFFICER COMPREHENSIVE METABOLIC PANEL STAT 05/11/2022 1:09 PM CHIEF RISK OFFICER XR CHEST 1VW PORTABLE STAT 05/11/2022 1:04 PM CHIEF RISK OFFICER Seizures (HCC) EKG 12-LEAD Routine 05/11/2022 12:34 PM CHIEF RISK OFFICER Seizures (HCC) documented in this encounter Results * FL ESOPHAGRAM (05/14/2022 2:15 PM CHIEF RISK OFFICER) Anatomical Region Laterality Modality Chest Radiographic Cynthia ging 05/14/2022 2:11 PM CHIEF RISK OFFICER Impressions 05/14/2022 4:48 PM CHIEF RISK OFFICER IMPRESSION: 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 Report dictated by Scar Oliveira MD (residential program coordinator). I, Rachel Phillips MD have personally reviewed and interpreted this examination/study. > Interpreting Provider: Rachel Phillips MD on 05/14/2022 4:48 PM Narrative 05/14/2022 4:48 PM CHIEF RISK OFFICER PROCEDURE: ??FL ESOPHAGRAM, DATE/TIME OF EXAM: ??05/14/2022 2:23 PM, LOCATION [facility] INDICATION: R13.12: Oropharyngeal dysphagia ADDITIONAL CLINICAL [...] ESOPHAGRAM, DATE/TIME OF EXAM: 05/14/2022 2:23 PM,LOCATION [facility] INDICATION: R13.12: Oropharyngeal dysphagia ADDITIONAL CLINICAL [...] Report dictated by Scar Oliveira MD (residential program coordinator). I, Rachel Phillips MD have personally reviewed and interpreted this examination/study. > Interpreting Provider: Rachel Phillips MD on 05/14/2022 4:48 PM Baldev Carl MD FLUOROSCOPY ORDERABL ES * GLUCOSE - POINT OF CARE (05/14/2022 3:48 AM CHIEF RISK OFFICER) Glucose WB/POC 105 70 - 115 mg/dL 05/14/2022 3:53 AM CHIEF RISK OFFICER [facility] Specimen Type Cap Fingerstick 2021 3:53 AM CHIEF RISK OFFICER [facility] Blood BLOOD SPECIMEN / Unknown 05/14/2022 3:48 AM CHIEF RISK OFFICER 05/14/2022 3:53 AM CHIEF RISK OFFICER Baldev Cral MD LAB - POINT OF CARE ORDERABLES [facility] [address] [place] [id number], [facility] [phone] * PHOSPHORUS BLOOD (05/14/2022 3:10 AM CHIEF RISK OFFICER) Phosphorus 3.0 2.8 - 5.1 mg/dL 05/14/2022 3:55 AM CHIEF RISK OFFICER [facility] Blood BLOOD SPECIMEN / Unknown Lab Venipuncture / Unknown 05/14/2022 3:10 AM CHIEF RISK OFFICER 05/14/2022 3:27 AM CHIEF RISK OFFICER Leonardo Adams MD LAB - CHEMISTRY MARSHAL MEDEROS [facility] [address] [place] [phone], [facility] [phone] * MAGNESIUM BLOOD (05/14/2022 3:10 AM CHIEF RISK OFFICER) Magnesium 1.7 1.6 - 2.6 mg/dL 05/14/2022 3:55 AM [facility] Blood BLOOD SPECIMEN / Unknown Lab Venipuncture / Unknown 05/14/2022 3:10 AM CHIEF RISK OFFICER 05/14/2022 3:27 AM CHIEF RISK OFFICER Leonardo Adams MD LAB - CHEMISTRY MARSHAL MEDEROS Performing Organization Address [facility]/ZIP Co de Phone Number [facility] [address] [place] [phone], [facility] [phone] * (ABNORMAL) COMPREHENSIVE METABOLIC PANEL (05/14/2022 3:10 AM CHIEF RISK OFFICER) BUN 12 7 - 26 mg/dL 05/14/2022 3:55 AM [facility] Creatinine 0.62(L) 0.71 - 1.16 mg/dL 05/14/2022 3:55 AM [facility] Sodium 143 136 - 145 mmol/L 05/14/2022 3:55 AM [facility] Potassium 4.2 3.5 - 4.5 mmol/L 05/14/2022 3:55 AM [facility] Chloride 110(H) 98 - 107 mmol/L 05/14/2022 3:55 AM [facility] CO2 26 22 - 29 mmol/L 05/14/2022 3:55 AM [facility] Glucose 97 70 - 115 mg/dL 05/14/2022 3:55 AM [facility] Calcium 8.9 8.4 - 10.2 mg/dL 05/14/2022 3:55 AM [facility] Protein Total 5.7(L) 6.0 - 8.3 g/dL 05/14/2022 3:55 AM [facility] Albumin 2.4(L) 3.4 - 5.0 g/dL 05/14/2022 3:55 AM [facility] Bilirubin Total 0.2 0.2 - 1.2 mg/dL 05/14/2022 3:55 AM [facility] Alkaline Phosphatase 77 40 - 150 U/L 05/14/2022 3:55 AM [facility] ALT 10 5 - 55 U/L 05/14/2022 3:55 AM [facility] AST 22 5 - 34 U/L 05/14/2022 3:55 AM [facility] Anion Gap 11 8 - 18 05/14/2022 3:55 AM [facility] BUN/Creatinine Ratio 19 7 - 23 05/14/2022 3:55 AM [facility] Osmolality Calculated 296 270 - 300 mOsm/kg 05/14/2022 3:55 AM [facility] Albumin/Globulin Ratio 0.7(L) 1.1 - 2.3 05/14/2022 3:55 AM [facility] eGFR by CKD-EPI >90 >=90 mL/min/1.7 3 m2 05/14/2022 3:55 AM [facility] Blood BLOOD SPECIMEN / Unknown Lab Venipuncture / Unknown 05/14/2022 3:10 AM CHIEF RISK OFFICER 05/14/2022 3:27 AM [facility] Leonardo Adams MD LAB - CHEMISTRY MARSHAL [facility] Organization Address City/[facility] de Phone Number [address] [phone] [phone] * (ABNORMAL) CBC W AUTO DIFFERENTIAL (05/14/2022 3:10 AM CHIEF RISK OFFICER) WBC 4.5 3.5 - 10.5 10? 3 /uL 05/14/2022 3:33 AM [facility] RBC 3.67(L) 4.30 - 5.70 10? 6 /uL 05/14/2022 3:33 AM [facility] Hemoglobin 12.0 12.0 - 17.6 g/dL 05/14/2022 3:33 AM [facility] Hematocrit 36.2 35.2 - 51.7 % 05/14/2022 3:33 AM [facility] MCV 98.6(H) 80.7 - 98.3 fL 05/14/2022 3:33 AM [facility] MCH 32.7 26.7 - 34.0 pg 05/14/2022 3:33 AM [facility] MCHC 33.1 30.8 - 35.9 g/dL 05/14/2022 3:33 AM [facility] RDW-SD 45.8 36.0 - 50.0 fL 05/14/2022 3:33 AM [facility] RDW-CV 12.6 11.2 - 14.8 % 05/14/2022 3:33 AM [facility] Platelet Count 159 150 - 400 10? 3 /uL 05/14/2022 3:33 AM [facility] MPV 12.5 9.4 - 12.9 fL 05/14/2022 3:33 AM [facility] nRBC Absolute 0.00 0 10? 3 /uL 05/14/2022 3:33 AM [facility] nRBC Auto 0.0 0 /100 WBC 05/14/2022 3:33 AM [facility] Neutrophils % 31.7(L) 35.0 - 70.0 % 05/14/2022 3:33 AM [facility] Lymphocytes % 54.9(H) 20.0 - 43.0 % 05/14/2022 3:33 AM [facility] Monocytes % 8.1 5.0 - 13.0 % 05/14/2022 3:33 AM [facility] Eosinophils % 4.7 0.0 - 6.0 % 05/14/2022 3:33 AM [facility] Basophil % 0.4 0.0 - 2.0 % 05/14/2022 3:33 AM [facility] Neutrophils Absolute 1.41(L) 1.60 - 7.00 10? 3 /uL 05/14/2022 3:33 AM [facility] Lymphocyte Absolute 2.45 1.10 - 3.90 10? 3 /uL 05/14/2022 3:33 AM [facility] Monocytes Absolute 0.36 0.26 - 1.07 10? 3 /uL 05/14/2022 3:33 AM [facility] Eosinophils Absolute 0.21 0.00 - 0.47 10? 3 /uL 05/14/2022 3:33 AM [facility] Basophils Absolute 0.02 0.00 - 0.08 10? 3 /uL 05/14/2022 3:33 AM [facility] Immature Granulocytes % 0.2 0.0 - 1.0 % 05/14/2022 3:33 AM [facility] Immature Granulocytes Absolute 0.01 05/14/2022 3:33 AM [facility] Blood BLOOD SPECIMEN / Unknown Lab Venipuncture / Unknown 05/14/2022 3:10 AM CHIEF RISK OFFICER 05/14/2022 3:27 AM CHIEF RISK OFFICER Loenardo Adams MD LAB - HEMATOLOGY ORD ERABLES [address] [address], [place] [phone] * (ABNORMAL) GLUCOSE - POINT OF CARE (05/14/2022 12:14 AM CHIEF RISK OFFICER) Glucose WB/POC 118(H) 70 - 115 mg/dL 05/14/2022 12:19 AM [facility] Specimen Type Cap Fingerstick 2021 12:19 AM [facility] Blood BLOOD SPECIMEN / Unknown 05/14/2022 12:14 AM CHIEF RISK OFFICER 05/14/2022 12:19 AM CHIEF RISK OFFICER Baldev Carl MD LAB - POINT OF CARE ORDERABLES [address] [address], [place] [phone] * GLUCOSE - POINT OF CARE (05/13/2022 8:36 PM CHIEF RISK OFFICER) Glucose WB/POC 92 70 - 115 mg/dL 05/13/2022 8:41 PM [facility] Specimen Type Cap Fingerstick 2021 8:41 PM CHIEF RISK OFFICER [facility] Blood BLOOD SPECIMEN / Unknown 05/13/2022 8:36 PM CHIEF RISK OFFICER 05/13/2022 8:41 PM CHIEF RISK OFFICER Baldev Carl MD LAB - POINT OF CARE ORDERABLES [address] [address], [place] [phone] * GLUCOSE - POINT OF CARE (05/13/2022 4:34 PM CHIEF RISK OFFICER) Glucose WB/POC 110 70 - 115 mg/dL 05/13/2022 4:35 PM CHIEF RISK OFFICER [facility] Specimen Type Venous 05/13/2022 4:35 PM CHIEF RISK OFFICER [facility] Blood BLOOD SPECIMEN / Unknown 05/13/2022 4:34 PM CHIEF RISK OFFICER 05/13/2022 4:35 PM CHIEF RISK OFFICER Baldev Carl MD LAB - POINT OF CARE ORDERABLES Performing Organization Address City/[facility]/ZIP Co de Phone Number [address] [address], [place] [phone] * GLUCOSE - POINT OF CARE (05/13/2022 7:39 AM CHIEF RISK OFFICER) Glucose WB/POC 109 70 - 115 mg/dL 05/13/2022 7:40 AM CHIEF RISK OFFICER [facility] Specimen Type Cap Fingerstick 2021 7:40 AM CHIEF RISK OFFICER [facility] Blood BLOOD SPECIMEN / Unknown 05/13/2022 7:39 AM CHIEF RISK OFFICER 05/13/2022 7:40 AM CHIEF RISK OFFICER Baldev Carl MD LAB - POINT OF CARE ORDERABLES Performing Organization Address City/[facility]/ZIP Co de Phone Number [address] [address], [place] [phone] * (ABNORMAL) PHOSPHORUS BLOOD (05/13/2022 7:24 AM CHIEF RISK OFFICER) Phosphorus 2.7(L) 2.8 - 5.1 mg/dL 05/13/2022 8:00 AM [facility] Blood BLOOD SPECIMEN / Unknown Lab Venipuncture / Unknown 05/13/2022 7:24 AM CHIEF RISK OFFICER 05/13/2022 7:30 AM CHIEF RISK OFFICER Leonardo Adams MD LAB - CHEMISTRY MARSHAL MEDEROS Performing Organization Address City/[facility]/ZIP Co de Phone Number [address] [address], [facility] [phone] * (ABNORMAL) MAGNESIUM BLOOD (05/13/2022 7:24 AM CHIEF RISK OFFICER) Pathologist [facility] Magnesium 1.5(L) 1.6 - 2.6 mg/dL 05/13/2022 8:00 AM [facility] Blood BLOOD SPECIMEN / Unknown Lab Venipuncture / Unknown 05/13/2022 7:24 AM CHIEF RISK OFFICER 05/13/2022 7:30 AM CHIEF RISK OFFICER Leonardo Adams MD LAB - CHEMISTRY MARSHAL MEDEROS [address] [address], [facility] [phone] * (ABNORMAL) COMPREHENSIVE METABOLIC PANEL (05/13/2022 7:24 AM CHIEF RISK OFFICER) Pathologist [facility] BUN 9 7 - 26 mg/dL 05/13/2022 8:00 AM [facility] Creatinine 0.48(L) 0.71 - 1.16 mg/dL 05/13/2022 8:00 AM [facility] Sodium 139 136 - 145 mmol/L 05/13/2022 8:00 AM [facility] Potassium 3.7 3.5 - 4.5 mmol/L 05/13/2022 8:00 AM [facility] Chloride 109(H) 98 - 107 mmol/L 05/13/2022 8:00 AM [facility] CO2 25 22 - 29 mmol/L 05/13/2022 8:00 AM [facility] Glucose 96 70 - 115 mg/dL 05/13/2022 8:00 AM [facility] Calcium 9.1 8.4 - 10.2 mg/dL 05/13/2022 8:00 AM [facility] Protein Total 5.7(L) 6.0 - 8.3 g/dL 05/13/2022 8:00 AM [facility] Albumin 2.4(L) 3.4 - 5.0 g/dL 05/13/2022 8:00 AM [facility] Bilirubin Total 0.2 0.2 - 1.2 mg/dL 05/13/2022 8:00 AM [facility] Alkaline Phosphatase 78 40 - 150 U/L 05/13/2022 8:00 AM [facility] ALT 9 5 - 55 U/L 05/13/2022 8:00 AM [facility] AST 12 5 - 34 U/L 05/13/2022 8:00 AM [facility] Anion Gap 9 8 - 18 05/13/2022 8:00 AM [facility] BUN/Creatinine Ratio 19 7 - 23 05/13/2022 8:00 AM [facility] Osmolality Calculated 287 270 - 300 mOsm/kg 05/13/2022 8:00 AM [facility] Albumin/Globulin Ratio 0.7(L) 1.1 - 2.3 05/13/2022 8:00 AM [facility] eGFR by CKD-EPI >90 >=90 mL/min/1.7 3 m2 05/13/2022 8:00 AM [facility] Blood BLOOD SPECIMEN / Unknown Lab Venipuncture / Unknown 05/13/2022 7:24 AM CHIEF RISK OFFICER 05/13/2022 7:30 AM [facility] Leonardo Adams MD LAB - CHEMISTRY MARSHAL MEDEROS [facility] Organization Address City/State/ZIP Co de Phone Number [facility] [address] [place] [address], [facility] [phone] * (ABNORMAL) CBC W AUTO DIFFERENTIAL (05/13/2022 7:24 AM CHIEF RISK OFFICER) WBC 4.5 3.5 - 10.5 10? 3 /uL 05/13/2022 7:37 AM [facility] RBC 3.80(L) 4.30 - 5.70 10? 6 /uL 05/13/2022 7:37 AM [facility] Hemoglobin 12.3 12.0 - 17.6 g/dL 05/13/2022 7:37 AM [facility] Hematocrit 36.9 35.2 - 51.7 % 05/13/2022 7:37 AM [facility] MCV 97.1 80.7 - 98.3 fL 05/13/2022 7:37 AM [facility] MCH 32.4 26.7 - 34.0 pg 05/13/2022 7:37 AM [facility] MCHC 33.3 30.8 - 35.9 g/dL 05/13/2022 7:37 AM [facility] RDW-SD 45.1 36.0 - 50.0 fL 05/13/2022 7:37 AM [facility] RDW-CV 12.6 11.2 - 14.8 % 05/13/2022 7:37 AM [facility] Platelet Count 147(L) 150 - 400 10? 3 /uL 05/13/2022 7:37 AM [facility] MPV 12.1 9.4 - 12.9 fL 05/13/2022 7:37 AM [facility] nRBC Absolute 0.00 0 10? 3 /uL 05/13/2022 7:37 AM [facility] nRBC Auto 0.0 0 /100 WBC 05/13/2022 7:37 AM [facility] Neutrophils % 41.1 35.0 - 70.0 % 05/13/2022 7:37 AM [facility] Lymphocytes % 45.6(H) 20.0 - 43.0 % 05/13/2022 7:37 AM [facility] Monocytes % 8.9 5.0 - 13.0 % 05/13/2022 7:37 AM [facility] Eosinophils % 3.8 0.0 - 6.0 % 05/13/2022 7:37 AM [facility] Basophil % 0.4 0.0 - 2.0 % 05/13/2022 7:37 AM [facility] Neutrophils Absolute 1.85 1.60 - 7.00 10? 3 /uL 05/13/2022 7:37 AM [facility] Lymphocyte Absolute 2.05 1.10 - 3.90 10? 3 /uL 05/13/2022 7:37 AM [facility] Monocytes Absolute 0.40 0.26 - 1.07 10? 3 /uL 05/13/2022 7:37 AM [facility] Eosinophils Absolute 0.17 0.00 - 0.47 10? 3 /uL 05/13/2022 7:37 AM [facility] Basophils Absolute 0.02 0.00 - 0.08 10? 3 /uL 05/13/2022 7:37 AM [facility] Immature Granulocytes % 0.2 0.0 - 1.0 % 05/13/2022 7:37 AM [facility] Immature Granulocytes Absolute 0.01 05/13/2022 7:37 AM [facility] Blood BLOOD SPECIMEN / Unknown Lab Venipuncture / Unknown 05/13/2022 7:24 AM [facility] 05/13/2022 7:30 AM CHIEF RISK OFFICER Leonardo Adams MD LAB - HEMATOLOGY LUCI GUTIERREZ [address] [address], [facility] [phone] * VALPROIC ACID LEVEL (05/13/2022 7:24 AM CHIEF RISK OFFICER) Pathologist [facility] Valproic Acid Total 54 50 - 100 ug/mL 05/13/2022 8:00 AM [facility] Blood BLOOD SPECIMEN / Unknown Lab Venipuncture / Unknown 05/13/2022 7:24 AM CHIEF RISK OFFICER 05/13/2022 7:30 AM CHIEF RISK OFFICER Shane Little MD LAB - CHEMISTRY MARSHAL MEDEROS [facility] [address] [place] [address], [place] [phone] * GLUCOSE - POINT OF CARE (05/13/2022 4:31 AM CHIEF RISK OFFICER) Glucose WB/POC 90 70 - 115 mg/dL 05/13/2022 4:36 AM CHIEF RISK OFFICER [facility] Specimen Type Cap Fingerstick 2021 4:36 AM [facility] Blood BLOOD SPECIMEN / Unknown 05/13/2022 4:31 AM CHIEF RISK OFFICER 05/13/2022 4:36 AM CHIEF RISK OFFICER Baldev Carl MD LAB - POINT OF CARE ORDERABLES [facility] [address] [place] [address], [place] [phone] * GLUCOSE - POINT OF CARE (05/13/2022 12:44 AM CHIEF RISK OFFICER) Glucose WB/POC 80 70 - 115 mg/dL 05/13/2022 12:47 AM [facility] Specimen Type Cap Fingerstick 2021 12:47 AM [facility] Blood BLOOD SPECIMEN / Unknown 05/13/2022 12:44 AM CHIEF RISK OFFICER 05/13/2022 12:47 AM CHIEF RISK OFFICER Baldev Carl MD LAB - POINT OF CARE ORDERABLES Performing Organization Address City/[facility]/ZIP Co de Phone Number [address] [address], [place] [phone] * GLUCOSE - POINT OF CARE (05/12/2022 4:01 PM CHIEF RISK OFFICER) Glucose WB/POC 78 70 - 115 mg/dL 05/12/2022 4:02 PM CHIEF RISK OFFICER [facility] Specimen Type Cap Fingerstick 2021 4:02 PM CHIEF RISK OFFICER [facility] Blood BLOOD SPECIMEN / Unknown 05/12/2022 4:01 PM CHIEF RISK OFFICER 05/12/2022 4:02 PM CHIEF RISK OFFICER Shane Little MD LAB - POINT OF CARE ORDERABLES [address] [address], [place] [phone] * FL SWALLOWING FUNCTION STUDY (05/12/2022 2:41 PM CHIEF RISK OFFICER) Anatomical Region Laterality Modality Chest Radiographic Cynthia ging 05/12/2022 2:59 PM CHIEF RISK OFFICER Narrative 05/13/2022 4:14 PM CHIEF RISK OFFICER PROCEDURE: ??FL SWALLOWING FUNCTION STUDY, DATE/TIME OF EXAM: ??05/12/2022 2:43 PM, LOCATION ??[facility] INDICATION: R56.9: Seizures ([facility]/HCC) ADDITIONAL CLINICAL INFORMATION: Ordering Provider Reason For Exam: ??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 FLUOROSCOPY DOSE: ??1.8 mGy Reference air kerma (ka,r). FLUOROSCOPY TIME: ??1.87 minutes; Number of images: ??3300 TECHNIQUE: Modified barium swallow fluoroscopy performed in conjunction with speech pathology staff. The speech pathologist administered varying thickness barium liquids and solids under direct Cine fluoroscopy. FINDINGS/IMPRESSION: Fluoroscopic assistance was provided for a modified barium swallow test performed by Speech Therapy. Please see the Speech Therapy report for details. Report dictated by Scar Oliveira MD (residential program coordinator). I, John Graham MD have personally reviewed and interpreted this examination/study. 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 FLUOROSCOPY DOSE: 1.8 mGy Reference air kerma (ka,r). FLUOROSCOPY TIME: 1.87 minutes; Number of images: 3300 TECHNIQUE: Modified barium swallow fluoroscopy performed in conjunction with speech pathology staff. The speech pathologist administered varying thickness barium liquids and solids under direct Cine fluoroscopy. FINDINGS/IMPRESSION: Fluoroscopic assistance was provided for a modified barium swallow test performed by Speech Therapy. Please see the Speech Therapy report for details. Report dictated by Scar Oliveira MD (residential program coordinator). I, John Graham MD have personally reviewed and interpreted this examination/study. > Interpreting Provider: John Graham MD on 05/13/2022 4:14 PM Shane Little MD FLUOROSCOPY ORDERABL ES * GLUCOSE - POINT OF CARE (05/12/2022 1:03 PM CHIEF RISK OFFICER) Glucose WB/POC 89 70 - 115 mg/dL 05/12/2022 1:16 PM CHIEF RISK OFFICER [facility] Specimen Type Cap Fingerstick 2021 1:16 PM CHIEF RISK OFFICER [facility] Blood BLOOD SPECIMEN / Unknown 05/12/2022 1:03 PM CHIEF RISK OFFICER 05/12/2022 1:16 PM CHIEF RISK OFFICER Shane Little MD LAB - POINT OF CARE ORDERABLES Performing Organization Address [facility]/ZIP Co de Phone Number [address] [address], [place] [phone] * CARDIAC EKG ORDER (05/12/2022 8:56 AM CHIEF RISK OFFICER) Narrative 05/12/2022 8:56 AM CHIEF RISK OFFICER Ordered by an unspecified provider. Scanned Document CARDIAC SERVICES ORD ERABLES * GLUCOSE - POINT OF CARE (05/12/2022 8:32 AM CHIEF RISK OFFICER) Glucose WB/POC 80 70 - 115 mg/dL 05/12/2022 8:33 AM CHIEF RISK OFFICER [facility] Specimen Type Cap Fingerstick 2021 8:33 AM CHIEF RISK OFFICER [facility] Blood BLOOD SPECIMEN / Unknown 05/12/2022 8:32 AM CHIEF RISK OFFICER 05/12/2022 8:33 AM CHIEF RISK OFFICER Shane Little MD LAB - POINT OF CARE ORDERABLES Performing Organization Address City/[facility]/ZIP Co de Phone Number [address] [address], [place] [phone] * GLUCOSE - POINT OF CARE (05/12/2022 5:40 AM CHIEF RISK OFFICER) Glucose WB/POC 86 70 - 115 mg/dL 05/12/2022 5:41 AM CHIEF RISK OFFICER [facility] Specimen Type Cap Fingerstick 2021 5:41 AM CHIEF RISK OFFICER [facility] Blood BLOOD SPECIMEN / Unknown 05/12/2022 5:40 AM CHIEF RISK OFFICER 05/12/2022 5:41 AM CHIEF RISK OFFICER Kortney Vega MD LAB - POINT OF CARE ORDERABLES [address] [address], [place] [phone] * PHOSPHORUS BLOOD (05/12/2022 3:14 AM CHIEF RISK OFFICER) Phosphorus 2.8 2.8 - 5.1 mg/dL 05/12/2022 3:45 AM CHIEF RISK OFFICER [facility] Blood BLOOD SPECIMEN / Unknown Venipuncture / Unknown 05/12/2022 3:14 AM CHIEF RISK OFFICER 05/12/2022 3:18 AM CHIEF RISK OFFICER Leonardo Adams MD LAB - CHEMISTRY MARSHAL MEDEROS Performing Organization Address City/[facility]/ZIP Co de Phone Number [address] [address], [place] [phone] * MAGNESIUM BLOOD (05/12/2022 3:14 AM CHIEF RISK OFFICER) Magnesium 2.0 1.6 - 2.6 mg/dL 05/12/2022 3:45 AM CHIEF RISK OFFICER [facility] Blood BLOOD SPECIMEN / Unknown Venipuncture / Unknown 05/12/2022 3:14 AM CHIEF RISK OFFICER 05/12/2022 3:18 AM CHIEF RISK OFFICER Leonardo Adams MD LAB - CHEMISTRY MARSHAL MEDEROS Performing Organization Address City/[facility]/ZIP Co de Phone Number [address] [address], [place] [phone] * (ABNORMAL) COMPREHENSIVE METABOLIC PANEL (05/12/2022 3:14 AM CHIEF RISK OFFICER) BUN 6(L) 7 - 26 mg/dL 05/12/2022 3:45 AM [facility] Creatinine 0.51(L) 0.71 - 1.16 mg/dL 05/12/2022 3:45 AM [facility] Sodium 142 136 - 145 mmol/L 05/12/2022 3:45 AM [facility] Potassium 3.8 3.5 - 4.5 mmol/L 05/12/2022 3:45 AM [facility] Chloride 111(H) 98 - 107 mmol/L 05/12/2022 3:45 AM [facility] CO2 26 22 - 29 mmol/L 05/12/2022 3:45 AM [facility] Glucose 99 70 - 115 mg/dL 05/12/2022 3:45 AM [facility] Calcium 8.3(L) 8.4 - 10.2 mg/dL 05/12/2022 3:45 AM [facility] Protein Total 5.7(L) 6.0 - 8.3 g/dL 05/12/2022 3:45 AM [facility] Albumin 2.5(L) 3.4 - 5.0 g/dL 05/12/2022 3:45 AM [facility] Bilirubin Total 0.3 0.2 - 1.2 mg/dL 05/12/2022 3:45 AM [facility] Alkaline Phosphatase 73 40 - 150 U/L 05/12/2022 3:45 AM [facility] ALT 9 5 - 55 U/L 05/12/2022 3:45 AM [facility] AST 11 5 - 34 U/L 05/12/2022 3:45 AM [facility] Anion Gap 9 8 - 18 05/12/2022 3:45 AM [facility] BUN/Creatinine Ratio 12 7 - 23 05/12/2022 3:45 AM [facility] Osmolality Calculated 292 270 - 300 mOsm/kg 05/12/2022 3:45 AM [facility] Albumin/Globulin Ratio 0.8(L) 1.1 - 2.3 05/12/2022 3:45 AM [facility] eGFR by CKD-EPI >90 >=90 mL/min/1.7 3 m2 05/12/2022 3:45 AM [facility] Blood BLOOD SPECIMEN / Unknown Venipuncture / Unknown 05/12/2022 3:14 AM CHIEF RISK OFFICER 05/12/2022 3:18 AM CHIEF RISK OFFICER Leonardo Adams MD LAB - CHEMISTRY MARSHAL MEDEROS [facility] Organization Address City/State/[facility] Co de Phone Number [facility] [address] [place] [address] [phone] * (ABNORMAL) CBC W AUTO DIFFERENTIAL (05/12/2022 3:14 AM CHIEF RISK OFFICER) WBC 6.4 3.5 - 10.5 10? 3 /uL 05/12/2022 3:31 AM [facility] RBC 3.48(L) 4.30 - 5.70 10? 6 /uL 05/12/2022 3:31 AM [facility] Hemoglobin 11.4(L) 12.0 - 17.6 g/dL 05/12/2022 3:31 AM [facility] Hematocrit 33.9(L) 35.2 - 51.7 % 05/12/2022 3:31 AM [facility] MCV 97.4 80.7 - 98.3 fL 05/12/2022 3:31 AM [facility] MCH 32.8 26.7 - 34.0 pg 05/12/2022 3:31 AM [facility] MCHC 33.6 30.8 - 35.9 g/dL 05/12/2022 3:31 AM [facility] RDW-SD 47.0 36.0 - 50.0 fL 05/12/2022 3:31 AM [facility] RDW-CV 13.2 11.2 - 14.8 % 05/12/2022 3:31 AM [facility] Platelet Count 144(L) 150 - 400 10? 3 /uL 05/12/2022 3:31 AM [facility] MPV 12.2 9.4 - 12.9 fL 05/12/2022 3:31 AM [facility] nRBC Absolute 0.00 0 10? 3 /uL 05/12/2022 3:31 AM [facility] nRBC Auto 0.0 0 /100 WBC 05/12/2022 3:31 AM [facility] Neutrophils % 45.1 35.0 - 70.0 % 05/12/2022 3:31 AM [facility] Lymphocytes % 45.8(H) 20.0 - 43.0 % 05/12/2022 3:31 AM [facility] Monocytes % 6.1 5.0 - 13.0 % 05/12/2022 3:31 AM [facility] Eosinophils % 2.4 0.0 - 6.0 % 05/12/2022 3:31 AM [facility] Basophil % 0.3 0.0 - 2.0 % 05/12/2022 3:31 AM [facility] Neutrophils Absolute 2.86 1.60 - 7.00 10? 3 /uL 05/12/2022 3:31 AM [facility] Lymphocyte Absolute 2.91 1.10 - 3.90 10? 3 /uL 05/12/2022 3:31 AM [facility] Monocytes Absolute 0.39 0.26 - 1.07 10? 3 /uL 05/12/2022 3:31 AM [facility] Eosinophils Absolute 0.15 0.00 - 0.47 10? 3 /uL 05/12/2022 3:31 AM [facility] Basophils Absolute 0.02 0.00 - 0.08 10? 3 /uL 05/12/2022 3:31 AM [facility] Immature Granulocytes % 0.3 0.0 - 1.0 % 05/12/2022 3:31 AM [facility] Immature Granulocytes Absolute 0.02 05/12/2022 3:31 AM [facility] Blood BLOOD SPECIMEN / Unknown Venipuncture / Unknown 05/12/2022 3:14 AM CHIEF RISK OFFICER 05/12/2022 3:18 AM [facility] Leonardo Adams MD LAB - HEMATOLOGY ORD ERABLES [facility] [address] [place] [address], [facility] [phone] * HEMOGLOBIN A1C (05/12/2022 3:14 AM CHIEF RISK OFFICER) Hemoglobin A1c 4.4 <=5.6 % 05/12/2022 8:21 AM [facility] Estimated Average Glucose 80 mg/dL 05/12/2022 8:21 AM [facility] Comment: HbA1c Interpretation: Normal : < 5.7% Pre-diabetes: 5.7-6.4% Diabetes: Equal to or greater than 6.5% Test results diagnostic of diabetes should be repeated for confirmation. Treatment target values recommended by ADA and other clinical organizations should be used to evaluate metabolic control in patients. Reference: [employer], Standards of Care in Diabetes -2020 In patients 70 years and older consider HbA1c target range of 7.0-7.5% (Reference: Lukas Matamoros et al. JAMDA. 2012) The Sebia assay for the measurement of HbA1c is a National Glycohemoglobin Standardization Program (NGSP) certified method. Blood BLOOD SPECIMEN / Unknown Venipuncture / Unknown 05/12/2022 3:14 AM CHIEF RISK OFFICER 05/12/2022 3:18 AM CHIEF RISK OFFICER Leonardo Adams MD LAB - CHEMISTRY MARSHAL MEDEROS [address] [address], [facility] [phone] * TROPONIN I (05/11/2022 6:33 PM CHIEF RISK OFFICER) Pathologist [facility] Troponin I <0.010 <0.032 ng/mL 05/11/2022 7:15 PM [facility] Blood BLOOD SPECIMEN / Unknown Venipuncture / Unknown 05/11/2022 6:33 PM CHIEF RISK OFFICER 05/11/2022 6:43 PM CHIEF RISK OFFICER Leonardo Adams MD LAB - CHEMISTRY MARSHAL MEDEROS [address] [address], [facility] [phone] * (ABNORMAL) MAGNESIUM BLOOD (05/11/2022 4:24 PM CHIEF RISK OFFICER) Magnesium 1.5(L) 1.6 - 2.6 mg/dL 05/11/2022 4:53 PM [facility] Blood BLOOD SPECIMEN / Unknown Venipuncture / Unknown 05/11/2022 4:24 PM CHIEF RISK OFFICER 05/11/2022 4:30 PM CHIEF RISK OFFICER Leonardo Adams MD LAB - CHEMISTRY MARSHAL MEDEROS [facility] [address] [place] [address], [facility] [phone] * (ABNORMAL) URINALYSIS REFLEX TO MICROSCOPIC NO CULTURE (05/11/2022 4:15 PM CHIEF RISK OFFICER) Color UA Yellow Straw, Yellow 05/11/2022 4:40 PM [facility] Clarity UA Clear Clear 05/11/2022 4:40 PM [facility] Specific [place] UA 1.020 1.005 - 1.030 05/11/2022 4:40 PM [facility] pH UA 7.5 5.0 - 8.0 pH 05/11/2022 4:40 PM [facility] Protein UA Negative Negative 05/11/2022 4:40 PM [facility] Glucose UA Trace(A) Negative 05/11/2022 4:40 PM [facility] Ketone UA Trace(A) Negative 05/11/2022 4:40 PM [facility] Bilirubin UA Negative Negative 05/11/2022 4:40 PM [facility] Blood UA Negative Negative 05/11/2022 4:40 PM [facility] Nitrite UA Negative Negative 05/11/2022 4:40 PM [facility] Leukocyte Esterase Negative Negative 05/11/2022 4:40 PM [facility] Urobilinogen UA 4.0(A) Negative mg/dL 05/11/2022 4:40 PM [facility] RBC UA 0-2 None Seen, 0-2, 3-5 /HPF 05/11/2022 4:40 PM [facility] WBC UA 0-5 None Seen, 0-5 /HPF 05/11/2022 4:40 PM [facility] Squamous Epithelial Cells UA 0-2 None Seen, 0-2, 3-5 /HPF 05/11/2022 4:40 PM [facility] Amorphous Crystals Rare(A) None /HPF 05/11/2022 4:40 PM [facility] Urine URINE SPECIMEN OBTAINED BY CLEAN CATCH PROCEDURE / Unknown Collection / Unknown 05/11/2022 4:15 PM CHIEF RISK OFFICER 05/11/2022 4:22 PM CHIEF RISK OFFICER Narrative [facility] - 05/11/2022 4:40 PM CHIEF RISK OFFICER Leonardo Adams MD LAB - URINALYSIS ORD ERABLES [facility] [address] [place] [address], [facility] [phone] * SARS-COV-2 (COVID-19)+INFLU A+B PCR RAPID (05/11/2022 4:06 PM CHIEF RISK OFFICER) COVID-19 PCR Not detected Not detected 05/11/20 4:49 PM [facility] Influenza A Rapid BILLY Not Detected Not Detected 05/11/2022 4:49 PM [facility] Influenza B BILLY Rapid Not Detected Not Detected 05/11/2022 4:49 PM [facility] Microbiology SPECIMEN FROM NASOPHARYNGEAL STRUCTURE / Unknown Collection / Unknown 05/11/2022 4:06 PM CHIEF RISK OFFICER 05/11/2022 4:09 PM CHIEF RISK OFFICER Narrative [facility] - 05/11/2022 4:49 PM CHIEF RISK OFFICER Influenza assay performed by [employer]. [...] acid amplification assay performance was validated by [facility]. This test has been authorized by [...] EUA assay are available upon request. Leonardo Adams MD LAB - MICROBIOLOGY O RDERABLES Performing Organization Address City/[facility]/ZIP Co de Phone Number [address] [address], [facility] [phone] * TROPONIN I (05/11/2022 4:06 PM CHIEF RISK OFFICER) Troponin I <0.010 <0.032 ng/mL 05/11/2022 4:55 PM CHIEF RISK OFFICER [facility] Blood BLOOD SPECIMEN / Unknown Venipuncture / Unknown 05/11/2022 4:06 PM CHIEF RISK OFFICER 05/11/2022 4:10 PM CHIEF RISK OFFICER Leonardo Adams MD LAB - CHEMISTRY MARSHAL MEDEROS Performing Organization Address [facility]/ZIP Co de Phone Number [address] [address], [facility] [phone] * CT HEAD NON CONTRAST - suspected intracranial hemorrhage (05/11/2022 2:16 PM CHIEF RISK OFFICER) Anatomical Region Laterality Modality Head Computed Tomogra phy 05/11/2022 3:06 PM CHIEF RISK OFFICER Impressions 05/11/2022 3:37 PM CHIEF RISK OFFICER IMPRESSION: 1. No acute intracranial abnormality. 2. No significant change since 03/17/2022. Report dictated by Quan Nguyễn MD (residential program coordinator). ILatrice MD have personally reviewed and interpreted this examination/study. > Interpreting Provider: Latrice Ortiz MD on 05/11/2022 3:37 PM Narrative 05/11/2022 3:37 PM CHIEF RISK OFFICER PROCEDURE: ??CT HEAD WO CONTRAST, DATE/TIME OF EXAM: ??05/11/2022 2:27 PM, LOCATION ??[facility] INDICATION: R56.9: Seizures (CMS/HCC) ADDITIONAL CLINICAL INFORMATION: Ordering Provider Reason For Exam: ??seizure Technologist Note: Additional: COMPARISON: CT head without contrast 03/17/2022 EXAMINATION: CT scan of the head without intravenous contrast TECHNIQUE: CT of the head was performed without intravenous contrast according to standard protocol. CT dose reduction technique was used, including Automated Exposure Control. 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 Small old infarcts are also seen in the left cerebellum, left para midline isabella, bilateral thalami and left basal ganglia. Moderate chronic microvascular ischemic changes are seen in the supratentorial white matter. There is moderate generalized cerebral volume loss and severe cerebellar/brainstem volume loss. There is complete opacification of the right maxillary sinus with heterogeneous material extending into the right nasal cavity through a widened ostium suggesting antrochoanal polyp. Old fracture of the left medial orbital wall is seen. A 1.6 cm sebaceous cyst is seen in the left para midline occipital scalp. Cerumen is seen in the right external auditory canal. Procedure Note Latrice Ortiz MD - 05/11/2022 PROCEDURE: CT HEAD WO CONTRAST, DATE/TIME OF EXAM: 05/11/2022 2:27 PM, LOCATION [facility] INDICATION: R56.9: Seizures (CMS/HCC) ADDITIONAL CLINICAL INFORMATION: Ordering Provider Reason For Exam: seizure Technologist Note: Additional: COMPARISON: CT head without contrast 03/17/2022 EXAMINATION: CT scan of the head without intravenous contrast TECHNIQUE: CT of the head was performed without intravenous contrast according to standard protocol. CT dose reduction technique was used, including Automated Exposure Control. 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 Small old infarcts are also seen in the left cerebellum, left paramidline isabella, bilateral thalami and left basal ganglia. Moderate chronic microvascular ischemic changes are seen in the supratentorial whitematter. There is moderate generalized cerebral volume loss and severe cerebellar/brainstem volume loss. There is complete opacification of the right maxillary sinus with heterogeneous material extending into the right nasal cavity through a widened ostium suggesting antrochoanal polyp. Old fracture of the left medial orbital wall is seen. A 1.6 cm sebaceous cyst is seen in the left para midline occipital scalp. Cerumen is seen in the right external auditory canal. IMPRESSION: 1. No acute intracranial abnormality. 2. No significant change since 03/17/2022. Report dictated by Quan Nguyễn MD (residential program coordinator). I, Latrice Ortiz MD have personally reviewed and interpreted this examination/study. > Interpreting Provider: Latrice Ortiz MD on 05/11/2022 3:37 PM Leonardo Adams MD CT ORDERABLES * PT-INR [facility] (05/11/2022 1:09 PM CHIEF RISK OFFICER) PT 13.5 12.1 - 14.8 Seconds 05/11/2022 1:43 PM CHIEF RISK OFFICER [facility] INR 1.0 See Comment 05/11/2022 1:43 PM [facility] Comment:The suggested therap eutic range for standard coumadin (warfarin) therapy is an INR of 2.0-3.0. For high-risk patients (Mechanical Mitral Valve Prosthesis, etc.), the suggested prophylactic therapeutic range is an INR of 2.5-3.5. Blood BLOOD SPECIMEN / Unknown Venipuncture / Unknown 05/11/2022 1:09 PM CHIEF RISK OFFICER 05/11/2022 1:15 PM CHIEF RISK OFFICER Leonardo Adams MD LAB - COAGULATION OR DERABLES [facility] [address] [place] [address], [facility] [phone] * (ABNORMAL) COMPREHENSIVE METABOLIC PANEL (05/11/2022 1:09 PM CHIEF RISK OFFICER) BUN 10 7 - 26 mg/dL 05/11/2022 1:47 PM CHIEF RISK OFFICER [facility] Creatinine 0.56(L) 0.71 - 1.16 mg/dL 05/11/2022 1:47 PM [facility] Sodium 138 136 - 145 mmol/L 05/11/2022 1:47 PM [facility] Potassium 4.0 3.5 - 4.5 mmol/L 05/11/2022 1:47 PM [facility] Chloride 102 98 - 107 mmol/L 05/11/2022 1:47 PM [facility] CO2 29 22 - 29 mmol/L 05/11/2022 1:47 PM [facility] Glucose 124(H) 70 - 115 mg/dL 05/11/2022 1:47 PM [facility] Calcium 9.7 8.4 - 10.2 mg/dL 05/11/2022 1:47 PM [facility] Protein Total 7.7 6.0 - 8.3 g/dL 05/11/2022 1:47 PM [facility] Albumin 3.3(L) 3.4 - 5.0 g/dL 05/11/2022 1:47 PM [facility] Bilirubin Total 0.3 0.2 - 1.2 mg/dL 05/11/2022 1:47 PM [facility] Alkaline Phosphatase 102 40 - 150 U/L 05/11/2022 1:47 PM [facility] ALT 14 5 - 55 U/L 05/11/2022 1:47 PM [facility] AST 16 5 - 34 U/L 05/11/2022 1:47 PM [facility] Anion Gap 11 8 - 18 05/11/2022 1:47 PM [facility] BUN/Creatinine Ratio 18 7 - 23 05/11/2022 1:47 PM [facility] Osmolality Calculated 286 270 - 300 mOsm/kg 05/11/2022 1:47 PM [facility] Albumin/Globulin Ratio 0.8(L) 1.1 - 2.3 05/11/2022 1:47 PM [facility] eGFR by CKD-EPI >90 >=90 mL/min/1.7 3 m2 05/11/2022 1:47 PM [facility] Blood BLOOD SPECIMEN / Unknown Venipuncture / Unknown 05/11/2022 1:09 PM [facility] 05/11/2022 1:15 PM [facility] Leonardo Adams MD LAB - CHEMISTRY MARSHAL MEDEROS [facility] Organization Address City/State/ZIP Co de Phone Number [facility] [address] [place] [address], [facility] [phone] * CBC W AUTO DIFFERENTIAL (05/11/2022 1:09 PM [employer]) WBC 9.4 3.5 - 10.5 10? 3 /uL 05/11/2022 1:22 PM [facility] RBC 4.48 4.30 - 5.70 10? 6 /uL 05/11/2022 1:22 PM [facility] Hemoglobin 14.5 12.0 - 17.6 g/dL 05/11/2022 1:22 PM [facility] Hematocrit 43.5 35.2 - 51.7 % 05/11/2022 1:22 PM [facility] MCV 97.1 80.7 - 98.3 fL 05/11/2022 1:22 PM [facility] MCH 32.4 26.7 - 34.0 pg 05/11/2022 1:22 PM [facility] MCHC 33.3 30.8 - 35.9 g/dL 05/11/2022 1:22 PM [facility] RDW-SD 46.5 36.0 - 50.0 fL 05/11/2022 1:22 PM [facility] RDW-CV 13.0 11.2 - 14.8 % 05/11/2022 1:22 PM [facility] Platelet Count 177 150 - 400 10? 3 /uL 05/11/2022 1:22 PM [facility] MPV 12.2 9.4 - 12.9 fL 05/11/2022 1:22 PM [facility] nRBC Absolute 0.00 0 10? 3 /uL 05/11/2022 1:22 PM [facility] nRBC Auto 0.0 0 /100 WBC 05/11/2022 1:22 PM [facility] Neutrophils % 65.8 35.0 - 70.0 % 05/11/2022 1:22 PM [facility] Lymphocytes % 25.9 20.0 - 43.0 % 05/11/2022 1:22 PM [facility] Monocytes % 7.2 5.0 - 13.0 % 05/11/2022 1:22 PM [facility] Eosinophils % 0.7 0.0 - 6.0 % 05/11/2022 1:22 PM [facility] Basophil % 0.1 0.0 - 2.0 % 05/11/2022 1:22 PM [facility] Neutrophils Absolute 6.18 1.60 - 7.00 10? 3 /uL 05/11/2022 1:22 PM [facility] Lymphocyte Absolute 2.43 1.10 - 3.90 10? 3 /uL 05/11/2022 1:22 PM [facility] Monocytes Absolute 0.68 0.26 - 1.07 10? 3 /uL 05/11/2022 1:22 PM [facility] Eosinophils Absolute 0.07 0.00 - 0.47 10? 3 /uL 05/11/2022 1:22 PM [facility] Basophils Absolute 0.01 0.00 - 0.08 10? 3 /uL 05/11/2022 1:22 PM [facility] Immature Granulocytes % 0.3 0.0 - 1.0 % 05/11/2022 1:22 PM [facility] Immature Granulocytes Absolute 0.03 05/11/2022 1:22 PM [facility] Blood BLOOD SPECIMEN / Unknown Venipuncture / Unknown 05/11/2022 1:09 PM [facility] 05/11/2022 1:15 PM [facility] Leonardo Adams MD LAB - HEMATOLOGY ORD ERABLES [facility] [address] [place] [address], [facility] [phone] * (ABNORMAL) BLOOD GASES ANA + COOX PANEL (05/11/2022 1:09 PM [facility]) pH Venous 7.36 7.32 - 7.42 pH 05/11/2022 1:18 PM [facility] pO2 Venous 31(L) 35 - 40 mmHg 05/11/2022 1:18 PM [facility] pCO2 Venous 53(H) 40 - 50 mmHg 05/11/2022 1:18 PM [facility] HCO3 Venous 29.9 20 - 30 mmol/L 05/11/2022 1:18 PM [facility] Base Excess Venous 3.3(H) -2.0 - 2.0 mmol/L 05/11/2022 1:18 PM [facility] Oxyhemoglobin Venous 43.4 % 04/29 1:18 PM [facility] Deoxyhemoglobin (HHB) Venous % 54.8 % 05/11/2022 1:18 PM [facility] Methemoglobin <0.8 0.0 - 2.0 % 05/11/2022 1:18 PM [facility] Carboxyhemoglobin 1.2 0.0 - 2.0 % 2021 1:18 PM [facility] O2 Content Venous 8.0 Interpret within clinical context ml/dL 05/11/2022 1:18 PM [facility] Hemoglobin by COOX 13.1 12.0 - 17.6 g/dL 05/11/2022 1:18 PM [facility] O2 Saturation Venous 44(L) >=70 % 04/29 1:18 PM [facility] FI O2 Mixed Venous 21.0 % 2021 1:18 PM [facility] Blood BLOOD SPECIMEN / Unknown Venipuncture / Unknown 05/11/2022 1:09 PM [employer]IE[employer] RISK OFFICER 05/11/2022 1:13 PM [facility] - 05/11/2022 1:18 PM [facility] Carboxyhemoglobin Normal Concentration: Non-smokers: 0-2%; Smokers: 0-9%; Toxic: >20% Leonardo Adams MD LAB - BLOOD GASES OR DERABLES [facility] [address] [place] [id number], [facility] [phone] * XR CHEST 1VW PORTABLE (05/11/2022 1:04 PM [facility]IE[employer]ISK OFFICER) Anatomical Region Laterality Modality Chest Radiographic Cynthia ging 05/11/2022 1:11 PM [facility]K OFFICER Impressions 05/11/2022 1:29 PM [facility]IE[employer]ISK OFFICER IMPRESSION: No acute pulmonary process. Report dictated by Ashu Welch M.D. (residential program coordinator) KOBE Thomason MD have personally reviewed and interpreted this examination/study. > Interpreting Provider: KOBE RUBIO MD on 05/11/2022 1:29 PM Narrative 05/11/2022 1:29 PM [facility]ISK OFFICER PROCEDURE: ??XR CHEST 1VW PORTABLE, DATE/TIME OF EXAM: ??05/11/2022 12:51 PM, LOCATION ??[facility] INDICATION: R56.9: Seizures (CMS/HCC) ADDITIONAL CLINICAL INFORMATION: Ordering Provider Reason For Exam: ??seizure COMPARISON: X-ray chest 03/17/2022 TECHNIQUE: Frontal radiograph of the chest. FINDINGS: There is no consolidation, pleural effusion, or pneumothorax. . The cardiomediastinal silhouette is normal in size.. The visible bony thorax is intact. Hyperdensity lateral to the proximal thoracic trachea may represent ingested materials or be external to the patient on this AP view. Hyperdense ingested material seen within the splenic flexure. Procedure Note Kobe Rubio MD - 05/11/2022 PROCEDURE: XR CHEST 1VW PORTABLE, DATE/TIME OF EXAM: 05/11/2022 12:51PM, LOCATION [facility] INDICATION: R56.9: Seizures (CMS/HCC) ADDITIONAL CLINICAL INFORMATION: Ordering Provider Reason For Exam: seizure COMPARISON: X-ray chest 03/17/2022 TECHNIQUE: Frontal radiograph of the chest. FINDINGS: There is no consolidation, pleural effusion, or pneumothorax. . The cardiomediastinal silhouette is normal in size.. The visible bony thorax is intact. Hyperdensity lateral to the proximal thoracic tracheamay represent ingested materials or be external to the patient on this APview. Hyperdense ingested material seen within the splenic flexure. IMPRESSION: No acute pulmonary process. Report dictated by Ashu Welch M.D. (residential program coordinator) KOBE Thomason MD have personally reviewed and interpreted this examination/study. > Interpreting Provider: KOBE RUBIO MD on 05/11/2022 1:29 PM Leonardo Adams MD DIAGNOSTIC IMAGING O RDERABLES * EKG 12-LEAD (05/11/2022 12:34 PM CHIE[employer] RISK OFFICER) Ventricular Rate 99 BPM [facility] Atrial Rate 99 BPM [facility] P-R Interval 138 ms [facility] QRS Duration ms 76 ms [facility] Q-T Interval ms 332 ms [facility] QTC Calculation (Bezet) 426 ms [facility] Calculated P [place] 66 degrees [facility] Calculated R [place] 15 degrees [facility] Calculated T [place] 80 degrees [facility] Interpretation EKG NORMAL SINUS RHYTHM NORMAL ECG WHEN COMPARED WITH ECG OF 08-MAR-2022 14:05, PREMATURE VENTRICULAR COMPLEXES ARE NO LONGER PRESENT Confirmed by USHA OLSEN, NIMISHATEQUILA ([id number]) on 05/12/2022 9:55:54 PM [facility] MUSE 05/11/2022 12:3 4 PM CHIE[employer] RISK OFFICER 05/12/2022 9:55 PM [facility]IE[employer] RISK OFFICER Leonardo Adams MD ECG ORDERABLES [facility] MUSE documented in this encounter Visit Diagnoses Diagnosis Oropharyngeal dysphagia- Primary Dysphagia, oropharyngeal phase Seizures (HCC) Other convulsions Seizures (CMS/HCC) Other convulsions documented in this encounter Administered Medications Inactive Administered Medications - up to 3 most recent administrations Medication Order MAR Action Action Date Dose Rate Site 0.9% NaCl infusion at 75 mL/hr, Intravenous, CONTINUOUS, Starting on Tue05/11/22 at 1715, Until Tue05/12/22 at 1313 $ New Bag/Syringe 05/11/2022 4:47 PM [facility]ISK OFFICER 75 mL/hr 0.9% NaCl infusion at 75 mL/hr, Intravenous, CONTINUOUS, Starting on Tue05/12/22 at 1400, Until Marian 05/13/22 at 1359 Current Rate 05/13/2022 6:23 AM [facility]K OFFICER 75 m L/hr Current Rate 05/13/2022 4:37 AM [employer]IE[employer] RISK OFFICER 75 mL/hr Restarted 05/12/2022 10:00 PM [employer]K OFFICER 75 mL/hr 0.9% NaCl injection 1-10 mL 1-10 mL, Intracatheter, PRN, Other, peripheral line flush, Starting on Tue05/11/22 at 1627, Until Tue05/14/22 at 1858, Flush peripheral IV catheter with 1-10 mL of normal saline before and after medications and prn to clear blood from the line or to verify patency. 0.9% NaCl injection 3 mL 3 mL, Intracatheter, EVERY 8 HOURS, First dose on Tue05/11/22 at 1700, Until Discontinued, Flush peripheral IV catheter with 3 mL of normal saline every 8 hours. $ Given 05/14/2022 3:07 PM [facility]IE[employer] RISK OFFICER 3 mL $ Given 05/14/2022 5:35 AM CHIE[employer] RISK OFFICER 3 mL $ Given 05/13/2022 8:38 PM CHIE[employer] RISK OFFICER 3 mL 0.9% NaCl IV bolus 1,000 mL, at 983.61 mL/hr, Administer over 61 Minutes, NOW, 1 dose, On Tue05/11/22 at 1245 $ Bolus New Bag 05/11/2022 4:17 PM [employer]IE[employer]ISK OFFICER 1,000 mL 983.61 mL/hr aspirin chew tablet 81 mg 81 mg, Enteral Tube, DAILY, First dose on Marian 05/13/22 at 1130, Until Discontinued $ Given 05/14/2022 8:25 AM CHIE[employer] RISK OFFICER 81 mg G Tube $ Given 05/13/2022 12:49 PM [employer] RISK OFFICER 81 mg G Tube atorvastatin (Lipitor) tablet 40 mg 40 mg, Enteral Tube, DAILY, First dose on Marian 05/13/22 at 1130, Until Discontinued $ Given 05/14/2022 8:26 AM [employer]IE[employer] RISK OFFICER 40 mg G Tub e $ Given 05/13/2022 12:49 PM [facility]ISK OFFICER 40 mg G Tube barium (Varibar Thin) 40 % liquid SUSR 25 mL 25 mL, Oral, ONCE, 1 dose, On Tue05/12/22 at 1500 $ Given - Contrast 05/12/2022 2:42 PM [employer] RISK OFFICER 25 mL barium (Varibar) 40 % paste PSTE Oral, ONCE, 1 dose, On Tue05/12/22 at 1500 $ Given - Contrast 05/12/2022 2:42 PM CHIE[employer] RISK OFFICER 10 mL cloBAZam (Onfi) tablet 10 mg 10 mg, Enteral Tube, ONCE, 1 dose, On Tue05/11/22 at 1630 $ Given 05/11/2022 5:03 PM CHIE[employer] RISK OFFICER 10 mg G Tube cloBAZam (Onfi) tablet 20 mg 20 mg, Enteral Tube, 2 TIMES DAILY, First dose on Tue05/11/22 at 2100, Until Discontinued $ Given 05/14/2022 8:25 AM CHIE[employer] RISK OFFICER 20 mg G Tube $ Given 05/13/2022 8:38 PM CHIE[employer] RISK OFFICER 20 mg G Tube $ Given 05/13/2022 8:25 AM CHIE[employer] RISK OFFICER 20 mg G Tube dextrose 10 % IV bolus 12.5 g, at 468.75 mL/hr, Intravenous, PRN, Other, Bedside Glucose less than 70 mg/dL -If NOT able to eat and/or NPO and with IV Access, Starting on Tue05/11/22 at 1649, Until Tue05/14/22 at 1858, If NOT able to eat and/or NPO [...] NPO and with IV Access, Starting on Tue05/11/22 at 1649, Until Tue05/14/22 at 1858, If NOT able to eat and/or NPO [...] HYPOGLYCEMIC EVENT. divalproex sprinkle (Depakote Sprinkle) capsule 1,000 mg 1,000 mg, Enteral Tube, 2 TIMES DAILY, First dose on Tue05/13/22 at 2100, Until Discontinued, Do not crush or chew sprinkle beads. $ Given 05/14/2022 8:25 AM CHIE[employer] RISK OFFICER 1,000 mg G Tube $ Given 05/13/2022 8:38 PM CHIE[employer] RISK OFFICER 1,000 mg G Tube folic acid (Folvite) tablet 1 mg 1 mg, Enteral Tube, DAILY, First dose on Marian 05/13/22 at 1215, Until Discontinued $ Given 05/14/2022 8:26 AM CHIE[employer] RISK OFFICER 1 m g G Tube $ Given 05/13/2022 12:49 PM CHIE[employer] RISK OFFICER 1 mg G Tube glucagon (Glucagen) injection 1 mg 1 mg, Subcutaneous, PRN, Bedside Glucose less than 70 mg/dL - If NOT able to eat and/or NPO and withOUT IV Access, Starting on Tue05/11/22 at 1649, Until Tue05/14/22 at 1858, If NOT able to eat and/or NPO [...] does not have swallowing difficulties, Starting on Tue05/11/22 at 1649, Until Tue05/14/22 at 1858, If able to eat and can swallow [...] does not have swallowing difficulties, Starting on Tue05/11/22 at 1649, Until Tue05/14/22 at 1858, If able to eat and is better [...] does not have swallowing difficulties, Starting on Tue05/11/22 at 164, Until Tue05/14/22 at 1858, If able to eat and does not [...] for choices). NOTIFY PROVIDER OF HYPOGLYCEMIC EVENT. heparin injection 5,000 Units 5,000 Units, Subcutaneous, EVERY 8 HOURS, First dose on Tue05/11/22 at 1700, Until Discontinued $ Given 05/14/2022 3:07 PM CHIE[employer] RISK OFFICER 5,000 Units Abdominal Tissue $ Given 05/14/2022 5:35 AM CHIE[employer] RISK OFFICER 5,000 Units A bd Left Lower Quadrant $ Given 05/13/2022 10:10 PM CHIE[employer] RISK OFFICER 5,000 Units Abd Left Lower Quadrant iopamidol (Isovue 300) 61 % contrast Intravenous, CONTRAST ONCE, Starting on Tue05/14/22 at 1411, Until Tue05/14/22 at 1858 $ Given - Contrast 05/14/2022 2:11 PM [employer]IE[employer] RISK OFFICER 170 mL lacosamide (Vimpat) injection 200 mg 200 mg, Intravenous, 2 TIMES DAILY, First dose on Tue05/11/22 at 2100, Until Discontinued, Doses up to 400 mg may be administered undiluted at less than 80 mg/min (400 mg over 5 min) $ Given 05/12/2022 8:54 AM CHIE[employer] RISK OFFICER 200 mg $ Given 05/11/2022 8:29 PM CHIE[employer] RISK OFFICER 200 mg lacosamide (Vimpat) tablet 200 mg 200 mg, Enteral Tube, 2 TIMES DAILY, First dose on Tue05/12/22 at 2100, Until Discontinued $ Given 05/14/2022 8:25 AM CHIE[employer] RISK OFFICER 200 mg G Tube $ Given 05/13/2022 8:38 PM CHIE[employer] RISK OFFICER 200 mg G Tube $ Given 05/13/2022 8:25 AM CHIE[employer] RISK OFFICER 200 mg G Tube lactated ringers IV bolus 500 mL, at 491.8 mL/hr, Administer over 61 Minutes, NOW, 1 dose, On Tue05/11/22 at 1300 $ Bolus New Bag 05/11/2022 2:12 PM CHIE[employer] RISK OFFICER 500 mL 491.8 mL/hr levETIRAcetam (Keppra) 1,000 mg in 100 mL IVPB 1,000 mg, at 400 mL/hr, Intravenous, Once, 1 dose, On Tue05/11/22 at 1300, For a total of 2000 mg $ Bolus New Bag 05/11/2022 3:36 PM CHIE[employer] RISK OFFICER 1,000 mg 400 mL/hr levETIRAcetam (Keppra) 1,000 mg in 100 mL IVPB 1,000 mg, at 400 mL/hr, Intravenous, Once, 1 dose, On Tue05/11/22 at 1300, For a total of 2000 mg $ Bolus New Bag 05/11/2022 3:35 PM CHIE[employer] RISK OFFICER 1,000 mg 400 mL/hr levETIRAcetam (Keppra) 2,000 mg in 0.9% NaCl IV 270 mL IVPB 2,000 mg, at 540 mL/hr, Intravenous, EVERY 12 HOURS, First dose on Tue05/11/22 at 2100, Until Discontinued $ New Bag/Syringe 05/12/2022 9:53 AM CHIE[employer] RISK OFFICER 2,000 mg 540 mL/hr $ New Bag/Syringe 05/11/2022 9:47 PM CHIE[employer] RISK OFFICER 2,000 mg 540 mL /hr levETIRAcetam (Keppra) tablet 2,000 mg 2,000 mg, Enteral Tube, 2 TIMES DAILY, First dose on Tue05/12/22 at 2100, Until Discontinued, Do not crush or chew because of TASTE only. $ Given 05/14/2022 8:25 AM CHIEF RISK OFFICER 2,000 m g G Tube $ Given 05/13/2022 8:38 PM CHIE[employer] RISK OFFICER 2,000 mg G Tube $ Given 05/13/2022 8:25 AM CHIE[employer] RISK OFFICER 2,000 mg G Tube magnesium sulfate 4 g in 100 mL bolus 4 g, at 25 mL/hr, Administer over 240 Minutes, Intravenous, ONCE, 1 dose, On Tue05/11/22 at 1730, Infuse at 1 gm/hr Restarted 05/11/2022 8:37 PM CHIE[employer] RISK OFFICER 25 mL/hr Restarted 05/11/2022 6:39 PM CHIE[employer] RISK OFFICER 25 mL/hr $ New Bag/Syringe 05/11/2022 5:46 PM CHIEF RISK OFFICER 4 g 25 mL/ hr magnesium sulfate 4 g in 100 mL bolus 4 g, at 25 mL/hr, Administer over 240 Minutes, Intravenous, ONCE, 1 dose, On Tue05/13/22 at 0845, Infuse at 1 gm/hr $ New Bag/Syringe 05/13/2022 8:24 AM CHIEF RISK OFFICER 4 g 25 mL/hr magnesium sulfate 4 g in 100 mL bolus 4 g, at 25 mL/hr, Administer over 240 Minutes, Intravenous, ONCE, 1 dose, On Tue05/14/22 at 0730, Infuse at 1 gm/hr Current Rate 05/14/2022 10:45 AM CHIEF RISK OFFICER 25 mL/hr $ New Bag/Syringe 05/14/2022 8:47 AM CHIEF RISK OFFICER 4 g 25 mL/ hr tamsulosin (Flomax) capsule 0.4 mg 0.4 mg, Oral, AT BEDTIME, First dose on Tue05/13/22 at 2100, Until Discontinued, Can open capsules and give per tube At the same time every day after a meal. Do not crush, chew $ Given 05/13/2022 8:37 PM CHIEF RISK OFFICER 0.4 mg thiamine (Vitamin B-1) tablet 100 mg 100 mg, Enteral Tube, DAILY, First dose on Tue05/13/22 at 1215, Until Discontinued $ Given 05/14/2022 8:26 AM CHIEF RISK OFFICER 100 mg G Tub e $ Given 05/13/2022 12:49 PM CHIEF RISK OFFICER 100 mg G Tube valproate (Depacon) 1,000 mg in 0.9% NaCl IV 60 mL IVPB 1,000 mg, at 120 mL/hr, Intravenous, Once, 1 dose, On Tue05/11/22 at 1615 $ New Bag/Syringe 05/11/2022 4:50 PM CHIEF RISK OFFICER 1,000 mg 120 mL/hr valproate (Depacon) 1,000 mg in 0.9% NaCl IV 60 mL IVPB 1,000 mg, at 120 mL/hr, Intravenous, EVERY 12 HOURS, First dose on Tue05/11/22 at 2100, Until Discontinued $ New Bag/Syringe 05/12/2022 8:36 AM CHIEF RISK OFFICER 1,000 mg 120 mL/hr $ New Bag/Syringe 05/11/2022 8:46 PM CHIEF RISK OFFICER 1,000 mg 120 mL /hr valproic acid (Depakene) capsule 1,000 mg 1,000 mg, Enteral Tube, 2 TIMES DAILY, First dose on Tue05/12/22 at 2100, Until Discontinued $ Given 05/12/2022 10:27 PM CHIEF RISK OFFICER 1,000 mg G Tube valproic acid (Depakene) solution 1,000 mg 1,000 mg, Enteral Tube, EVERY 12 HOURS, First dose on Tue05/13/22 at 0900, Until Discontinued $ Given 05/13/2022 8:25 AM CHIEF RISK OFFICER 1,000 mg G Tube valproic acid (Depakene) solution 500 mg 500 mg, Enteral Tube, Once, 1 dose, On Tue05/13/22 at 1300 $ Given 05/13/2022 12:49 PM CHIEF RISK OFFICER 500 mg G Tube documented in this encounter Active and Recently Administered Medications Times are shown in CHIEF RISK OFFICER. Scheduled Medication Order 05/12/2022 05/13/2022 05/14/2022 0.9% NaCl injection 3 mL(Linked Group 1) 3 mL, Intracatheter, EVERY 8 HOURS, First dose on Tue05/11/22 at 1700, Until Discontinued, Flush peripheral IV catheter with 3 mL of normal saline every 8 hours. 1314 (Not Administered - Provider: Snow Ojeda RN - Reason: IV Currently Infusing)2227 ($ Given - Provider: Lay Wright RN)2228 (Canceled Entry - Provider: Lay Wright RN)2229 (Canceled Entry - Provider: Lay Wright RN) 0449 (Not Administered - Provider: Lay Wright RN - Reason: IV Currently Infusing)1250 ($ Given - Provider: Becki Hogan RN)2038 ($ Given - Provider: Cece Jimenez, ALFRED) 0535 ($ Given - Provider: Cece Jimenez RN)1507 ($ Given - Provider: Beba Ceron RN) aspirin chew tablet 81 mg 81 mg, Enteral Tube, DAILY, First dose on Tue05/13/22 at 1130, Until Discontinued 1249 ($ Given - Provider: Becki Hogan RN) 0825 ($ Given - Provider: Beba Ceron, ALFRED) atorvastatin (Lipitor) tablet 40 mg 40 mg, Enteral Tube, DAILY, First dose on Tue05/13/22 at 1130, Until Discontinued 1249 ($ Given - Provider: Becki Hogan RN) 0826 ($ Given - Provider: Beba Ceron, ALFRED) barium (Varibar Thin) 40 % liquid SUSR 25 mL (COMPLETED) 25 mL, Oral, ONCE, 1 dose, On Tue05/12/22 at 1500 1442 ($ Given - Contrast - Provider: Aundrea Waller) barium (Varibar) 40 % paste PSTE (COMPLETED) Oral, ONCE, 1 dose, On Tue05/12/22 at 1500 1442 ($ Given - Contrast - Provider: Aundrea Waller) cloBAZam (Onfi) tablet 20 mg 20 mg, Enteral Tube, 2 TIMES DAILY, First dose on Tue05/11/22 at 2100, Until Discontinued 0854 ($ Given - Provider: Snow Ojeda RN)2226 ($ Given - Provider: Lay Wright RN) 0825 ($ Given - Provider: Becki Hogan, ALFRED)2037 ($ Given - Provider: Cece Jimenez, ALFRED) 0825 ($ Given - Provider: Beba Ceron, ALFRED) divalproex sprinkle (Depakote Sprinkle) capsule 1,000 mg 1,000 mg, Enteral Tube, 2 TIMES DAILY, First dose on Tue05/13/22 at 2100, Until Discontinued, Do not crush or chew sprinkle beads. 2037 ($ Given - Provider: Cece Jimenez RN) 0825 ($ Given - Provider: Beba Ceron, ALFRED) folic acid (Folvite) tablet 1 mg 1 mg, Enteral Tube, DAILY, First dose on Tue05/13/22 at 1215, Until Discontinued 1249 ($ Given - Provider: Becki Hogan RN) 0826 ($ Given - Provider: Beba Ceron RN) heparin injection 5,000 Units 5,000 Units, Subcutaneous, EVERY 8 HOURS, First dose on Tue05/11/22 at 1700, Until Discontinued 0554 ($ Given - Provider: Mart Cuellar RN)1313 ($ Given - Provider: Snow Ojeda, ALFRED)2227 ($ Given - Provider: Lay Wright RN) 0449 ($ Given - Provider: Lay Wright RN)1250 ($ Given - Provider: Becki Hogan, ALFRED)2210 ($ Given - Provider: Cece Jimenez, RN) 0535 ($ Given - Provider: Cece Jimenez RN)1507 ($ Given - Provider: Beba Ceron RN) iopamidol (Isovue 300) 61 % contrast Intravenous, CONTRAST ONCE, Starting on Tue05/14/22 at 1411, Until Tue05/14/22 at 1858 1411 ($ Given - Contrast - Provider: Clover Adams) lacosamide (Vimpat) injection 200 mg (CANCELED) 200 mg, Intravenous, 2 TIMES DAILY, First dose on Tue05/11/22 at 2100, Until Discontinued, Doses up to 400 mg may be administered undiluted at less than 80 mg/min (400 mg over 5 min) 0854 ($ Given - Provider: Snow Ojeda RN) lacosamide (Vimpat) tablet 200 mg 200 mg, Enteral Tube, 2 TIMES DAILY, First dose on Tue05/12/22 at 2100, Until Discontinued 222 ($ Given - Provider: Lay Wright RN) 0825 ($ Given - Provider: Becki Hogan, ALFRED)2038 ($ Given - Provider: Cece Jimenez RN) 0825 ($ Given - Provider: Beba Ceron RN) levETIRAcetam (Keppra) 2,000 mg in 0.9% NaCl IV 270 mL IVPB (CANCELED) 2,000 mg, at 540 mL/hr, Intravenous, EVERY 12 HOURS, First dose on Tue05/11/22 at 2100, Until Discontinued 0953 ($ New Bag/Syringe - Provider: Snow Ojeda RN)1026 (Stopped - Provider: Snow Ojeda RN) levETIRAcetam (Keppra) tablet 2,000 mg 2,000 mg, Enteral Tube, 2 TIMES DAILY, First dose on Tue05/12/22 at 2100, Until Discontinued, Do not crush or chew because of TASTE only. 222 ($ Given - Provider: Lay Wright RN) 0825 ($ Given - Provider: Becki Hogan RN)203 ($ Given - Provider: Cece Jimenez, ALFRED) 0825 ($ Given - Provider: Beba Ceron RN) magnesium sulfate 4 g in 100 mL bolus (COMPLETED) 4 g, at 25 mL/hr, Administer over 240 Minutes, Intravenous, ONCE, 1 dose, On Tue05/13/22 at 0845, Infuse at 1 gm/hr 0824 ($ New Bag/Syringe - Provider: Becki Hogan RN)1250 (Stopped - Provider: Becki Hogan RN) magnesium sulfate 4 g in 100 mL bolus (COMPLETED) 4 g, at 25 mL/hr, Administer over 240 Minutes, Intravenous, ONCE, 1 dose, On Tue05/14/22 at 0730, Infuse at 1 gm/hr 0847 ($ New Bag/Syringe - Provider: Beba Ceron RN)1045 (Current Rate - Provider: Beba Ceron RN)1225 (Stopped - Provider: Beba Ceron RN) tamsulosin (Flomax) capsule 0.4 mg 0.4 mg, Oral, AT BEDTIME, First dose on Tue05/13/22 at 2100, Until Discontinued, Can open capsules and give per tube At the same time every day after a meal. Do not crush, chew 2036 ($ Given - Provider: Cece Jimenez RN) thiamine (Vitamin B-1) tablet 100 mg 100 mg, Enteral Tube, DAILY, First dose on Tue05/13/22 at 1215, Until Discontinued 1249 ($ Given - Provider: Becki Hogan RN) 0826 ($ Given - Provider: Beba Ceron RN) valproate (Depacon) 1,000 mg in 0.9% NaCl IV 60 mL IVPB (CANCELED) 1,000 mg, at 120 mL/hr, Intravenous, EVERY 12 HOURS, First dose on Tue05/11/22 at 2100, Until Discontinued 0836 ($ New Bag/Syringe - Provider: Snow Ojeda RN)0906 (Stopped - Provider: Snow Ojeda RN) valproic acid (Depakene) capsule 1,000 mg (CANCELED) 1,000 mg, Enteral Tube, 2 TIMES DAILY, First dose on Tue05/12/22 at 2100, Until Discontinued 2227 ($ Given - Provider: Lay Wright RN) valproic acid (Depakene) solution 1,000 mg (CANCELED) 1,000 mg, Enteral Tube, EVERY 12 HOURS, First dose on Tue05/13/22 at 0900, Until Discontinued 0825 ($ Given - Provider: Becki Hogan, ALFRED) valproic acid (Depakene) solution 500 mg (COMPLETED) 500 mg, Enteral Tube, Once, 1 dose, On Tue05/13/22 at 1300 1249 ($ Given - Provider: Becki Hogan RN) Continuous Medication Order 05/12/2022 05/13/2022 05/14/2022 0.9% NaCl infusion () at 75 mL/hr, Intravenous, CONTINUOUS, Starting on Tue05/12/22 at 1400, Until Tue05/13/22 at 1359 1605 ($ New Bag/Syringe - Provider: Snow Ojeda RN)1845 (Paused - Provider: Lay Wright RN)1851 (Restarted - Provider: Lay Wright RN)1851 (Paused - Provider: Lay Wright RN)1917 (Restarted - Provider: Lay Wright RN)2112 (Paused - Provider: Lay Wright RN)2200 (Restarted - Provider: Lay Wright RN) 0437 (Current Rate - Provider: Lay Wright RN)0623 (Current Rate - Provider: Lay Wright RN) PRN Medication Order 05/12/2022 05/13/2022 05/14/2022 0.9% NaCl injection 1-10 mL(Linked Group 1) 1-10 mL, Intracatheter, PRN, Other, peripheral line flush, Starting on Tue05/11/22 at 1627, Until Tue05/14/22 at 1858, Flush peripheral IV catheter with 1-10 mL of normal saline before and after medications and prn to clear blood from the line or to verify patency. artificial tears ophthalmic solution 1 drop 1 drop, Each Eye, 3 TIMES DAILY PRN, Dry Eyes, Starting on Tue05/13/22 at 1047, Until Tue05/14/22 at 1858 dextrose 10 % IV bolus(Linked Group 2) 12.5 g, at 468.75 mL/hr, Intravenous, PRN, Other, Bedside Glucose less than 70 mg/dL -If NOT able to eat and/or NPO and with IV Access, Starting on Tue05/11/22 at 1649, Until Tue05/14/22 at 185, If NOT able to eat [...] NPO and with IV Access, Starting on Tue05/11/22 at 1649, Until Tue05/14/22 at 185, If NOT able to eat [...] NPO and withOUT IV Access, Starting on Tue05/11/22 at 1649, Until Tue05/14/22 at 185, If NOT able to eat [...] does not have swallowing difficulties, Starting on Tue05/11/22 at 1649, Until Tue05/14/22 at 1858, If able to eat and can swallow [...] does not have swallowing difficulties, Starting on Tue05/11/22 at 1649, Until Tue05/14/22 at 1858, If able to eat and is better [...] does not have swallowing difficulties, Starting on Tue05/11/22 at 1649, Until Tue05/14/22 at 1858, If able to eat and does not [...] AND MAINTAIN (CANCELED) Routine, CONTINUOUS, Starting on Tue05/11/22 at 1630, Until Specified, New collection, Task Completed: Yes And 0.9% NaCl injection 3 mLJump to med 3 mL, Intracatheter, EVERY 8 HOURS, First dose on Tue05/11/22 at 1700, Until Discontinued, Flush peripheral IV catheter with 3 mL of normal saline every 8 hours. And 0.9% NaCl injection 1-10 mLJump to med 1-10 mL, Intracatheter, PRN, Other, peripheral line flush, Starting on Tue05/11/22 at 1627, Until Tue05/14/22 at 1858, Flush peripheral IV catheter with 1-10 mL of normal saline before and after medications and prn to clear blood from the line or to verify patency. Group 2: dextrose 10 % IV bolusJump to med 12.5 g, at 468.75 mL/hr, Intravenous, PRN, Other, Bedside Glucose less than 70 mg/dL -If NOT able to eat and/or NPO and with IV Access, Starting on Tue05/11/22 at 1649, Until Tue05/14/22 at 1858, If NOT able to eat and/or NPO [...] NPO and with IV Access, Starting on Tue05/11/22 at 1649, Until Tue05/14/22 at 1858, If NOT able to eat and/or NPO [...] iso, ES 03/09/2022 03/09/2022 05/13/2022 6:57 AM CHIEF RISK OFFICER COVID-19 Under Investigation 05/11/2022 05/11/2022 05/11/2022 4:49 PM CHIEF RISK OFFICER documented as of this encounter Care Teams Pipe Smoker Machine Operator Relationship Specialty Start Date End Date Joyce Luevano APRN-DISK AND TAPE MACHINE TENDER [address] [place] [id number] PCP - General 03/08/22 11/17/23 Elizabeth Sullivan, ALFRED Tail Edger 10/14/17 documented as of this encounter
--- OUTSIDE RECORDS SUMMARY | 2024-06-08 05:38 | XMS_ITS | Encounter Summary ---
Author Organization [facility] Health Address [address] [place] [address] Care Team Providers Care Nut Former Name Role Phone Elizabeth Sullivan RN Unavailable [phone] Joyce Luevano PRODUCTION CONTROL CLERK-SPECIAL EDUCATION INCLUSION TEACHER Primary Care Provider [phone] Reason for Visit * Reason Onset Date Comments Medication Management 05/27/2022 Encounter Details Date Type Department Care Team (Late st Contact Info) Description 05/27/2022 Telephone [facility] [address] [place] [address] Yana Rm APRN-CNP [address] [place] [address] Medication Management Social History Tobacco [...] Telephone Encounter - Evy Frost, RN - 05/27/2022 9:21 AM CST Received call from [facility] pharmacy concerning refill of Divalproex DR. Raymond states that patient has aG tube and the medications have to be crushed. Patient was previously receiving liquid Divalproex via NG tube 4 times a day. She states the insurance will not pay for sprinkles and is requesting an order for the liquid medication which she states patient has received. Review shows no order for liquid version. Call to Mandi to discuss options. Per Mandi - patient was released from hospital on Divalproex sprinkles - insurance will only cover 10 capsules/day- patient would need 16. She states pharmacy was contacted to change to liquid 500 mg 4X day per NG. The current order for Divalproex DR cannot be crushed. Pharmacy is requesting to return to liquid option for continuity of care. SEAFOOD ASSOCIATE documented in this encounter Plan of Treatment Upcoming Encounters Date Type Department Care Team (Late st Contact Info) Description 12/05/2024 1:00 PM CDT Office Visit [facility] - Neurology [address] [facility], [place] [address] Sean Raymundo, DO [facility] [place] [phone] documented as of this encounter Visit Diagnoses Not on filedocumented in this encounter Care Teams Nut Former Relationship Specialty Start Date End Date Joyce Luevano, PRODUCTION CONTROL CLERK-SPECIAL EDUCATION INCLUSION TEACHER [address] [place] [id number] PCP - General 03/08/22 11/17/23 Elizabeth Sullivan RN Presser Hand 10/14/17 documented as of this encounter
--- OUTSIDE RECORDS SUMMARY | 2024-06-08 05:38 | XMS_ITS | Encounter Summary ---
Author Organization [facility] Health Address [address] [place] [address] Care Team Providers Care Rn Pacu Name Role Phone Elizabeth Sullivan RN Unavailable [phone] Joyce Luevano FINISHER FINE DIAMOND DIES-ECONOMIC DEVELOPMENT MANAGER Primary Care Provider [phone] Encounter Details Date Type Department Care Team (Late st Contact Info) Description 05/10/2022 Orders Only [facility] [address] [facility], [facility] [place] [address] Yana Rm APRN-CNP [address] [place] [address] Social History Tobacco Use Types Packs/Day Years Used Date Smoking Tobacco: Former Cigarettes 1 15 Smokeless Tobacco: Never Alcohol Use Standard Drinks/Week Comments No 0 (1 standard drink = 0.6 oz pur e alcohol) last drink 2016 AUDIT-C Answer Date Recorded Q1: How often [...] Yes 03/10/2022 documented as of this encounter Plan of Treatment Upcoming Encounters Date Type Department Care Team (Late st Contact Info) Description 12/05/2024 1:00 PM CDT Office Visit [facility] - Neurology [address] [place] [address], [place] [phone] Sean Raymundo, DO [address] [place] [phone] documented as of this encounter Visit Diagnoses Not on filedocumented in this encounter Additional Health Concerns Infection Onset Date Last Indicated Resolved Time 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
--- OUTSIDE RECORDS SUMMARY | 2024-06-08 05:38 | XMS_ITS | Encounter Summary ---
Author Organization [facility] Health Address [address] [facility] [place] [address] Care Team Providers Care Assembler Erector Name Role Phone Elizabeth Sullivan RN Unavailable [phone] Joyce Luevano SUPERVISOR SHRIMP POND-LEASE ANALYST Primary Care Provider [phone] Encounter Details Date Type Department Care Team (Late st Contact Info) Description 05/27/2022 Orders Only [facility] [address] [facility], [facility] [place] [address] Yana Rm APRN-CNP [address] [place] [address] Social History Tobacco Use Types [...] Office Visit [facility] - Neurology [address] [place] [address], [place] [address] Sean Raymundo, DO [address] [place] [phone] documented as of this encounter Visit Diagnoses Not on filedocumented in this encounter Care Teams Assembler Erector Relationship Specialty Start Date End Date Joyce Luevano, SUPERVISOR SHRIMP POND-LEASE ANALYST [address] [place] [id number] PCP - General 03/08/22 11/17/23 Elizabeth Sullivan, ALFRED Application Support Engineer 10/14/17 documented as of this encounter
--- OUTSIDE RECORDS SUMMARY | 2024-06-08 05:39 | XMS_ITS | Encounter Summary ---
Author Organization [facility] Address [address] [place] [address] Care Team Providers Care Publishing Director Name Role Phone Elizabeth Sullivan RN Unavailable Joyce Luevano PNEUMATIC J[employer]OR [employer]AMER Primary Care Provider [phone] Reason for Visit * Reason Comments Altered mental status Pt BIBEMS from SNF with worsening and mentation and lethargy as reported by family for 3 days. PT arrives with healing wound to the left foot. A&O to self - baseline A&Ox2. 89% on RA - placed on 2L; 127 HR. * Auth/Cert Specialty Diagnoses / Procedures Referred By Contkatarzyna t Referred To Contact Procedures CHRONIC VIRAL HEPATITIS LIVER FIBROSIS Referral ID Status Reason Start Date Expiration Date Visits Re quested Visits Authorized [id number] 1 1 Encounter Details Date Type Department Care Team (Latest Contact Info) Description 03/25/2022 5:05 PM CDT - 03/25/2022 5:35 PM CDT Surgery [facility] [address] [place] [id number] Tiffani Castillo MD [address] [facility] [address] [facility] [place] [id number] ESOPHAGOGASTRODUODENOSCOPY (EGD) DIAGNOSTIC with PEG Placement Surgery Details Date/Time Status Location OR Service Patient Class Case Class Case Type Trauma Case? 03/25/2022 5:05 PM Posted [facility] Endoscopy ENDO 4 Gastroenterology Inpatient Panel 1 Procedure LRB Anes Op Region Wound Class Comments ESOPHAGOGASTRODUODENOSCOPY ( EGD) DIAGNOSTIC with PEG Placement N/A General Abdomen NA gastric erosions and erythema, PEG tube successfully placed Surgeon Surgeon Role Service Panel Tiffani Castillo MD Primary Gastroenterology 1 documented in this encounter Social History Tobacco [...] Sign Reading Time Taken Comments Blood Pressure 109/74 03/25/2022 5:35 PM CDT Pulse 89 03/25/2022 5:35 PM CDT Temperature 36 ??C (96.8 ??F) 03/25/2022 5:25 PM CDT Respiratory Rate 16 03/25/2022 5:35 PM CDT Oxygen Saturation 100% 03/25/2022 5:35 PM CDT Inhaled Oxygen Concentration - - Weight 68 kg (150 lb) 03/08/2022 1:59 PM CDT Height 182.9 cm (6') 03/08/2022 1:59 PM CDT Body Mass Index 20.34 03/08/2022 1:59 PM CDT documented in this encounter Functional [...] as of this encounter Discharge Summaries * Dante Nuno MD - 04/01/2022 7:54 AM CDT Hospital Discharge Summary Patient ID: Mojgan Tabor [id number] 62 year old 1960 Admit date: 03/08/2022 Discharge date: 04/01/2022 Admitting Physician: Germaine Nails MD Discharge Physician: Dante Nuno MD Discharge Diagnoses: Refractory seizure disorder, dysphagia, severe protein calorie malnutrition, MSSA bacteremia, history of CVA, hypertension, left lower extremity ischemia status 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 Patient was found to have MSSA bacteremia and was treated with cefazolin till 03/25/2022 per ID. During his hospitalization he was found to have signs of seizures on cEEG. Patient was started on antiepileptic medications by Neurology with improvement in mental status. Patient underwent PEG tubeplacement due to dysphagia. Patient was found to have toe gangrene on left foot and underwent left AKA on 03/15/2022 by vascular surgery. # refractory seizure disorder; Continue Keppra, Vimpat, clobazam and valproic acid per Neurology. Follow-up with neurology on 05/06/2022. ?? # dysphagia # severe protein calorie malnutrition Unable to pass barium swallow study. Unable to tolerate NG tube due to poor swallowing. Status post PEG tube placement on 03/26/2022. Continue tube feeds ?? # MSSA bacteremia; Cefazolin course completed on 03/25/2022 ?? # left lower extremity ischemia status post left AKA on 03/15/2022 by vascular surgery. Follow-up with vascular surgery on 04/14/2022 ?? Consults: GI, ID, Neurology, Vascular surgery Pending Labs and Studies: none Significant Diagnostic Studies: CBC: Recent Labs Lab Units 04/01/22 0608 03/31/22 0637 03/30/22 0216 WBC 10??3/uL 8.2 8.5 6.8 RBC 10??6/uL 3.43* 3.34* 3.83* HGB g/dL 11.0* 10.8* 12.2 HCT % 33.9* 33.0* 37.5 BMP: Recent Labs Lab Units 04/01/22 0608 03/31/22 0637 03/30/22215 NA mmol/L 138 137 140 CL mmol/L 104 102 103 CO2 mmol/L 29 31* 26 BUN mg/dL 12 14 13 CREATININE mg/dL 0.49* 0.46* 0.55* CALCIUM mg/dL 9.2 9.3 9.6 Discharge Exam: Blood pressure 120/84, pulse (!) 118, temperature 98.3 ??F (36.8 ??C), resp. rate 16, height 1.829 m (6'), weight 68 kg (150 lb), SpO2 98 %. GEN: Awake, alert but not oriented in NAD CHEST: Clear to auscultation bilaterally HEART: Regular rate and rhythm, Nl S1 and S2 GI: Abdomen soft and non tender, non-distended, +BS, G-tube in place EXT: No edema. Disposition: assisted facility Patient Instructions: Medication List START taking these medications artificial tears ophthalmic solution Instill 1 (one) drop into both eyes 3 times daily as needed bisacodyl 10 MG suppository Commonly known as: Dulcolax Insert 1 (one) suppository into the rectum once daily as needed for Constipation oxyCODONE 5 MG/5ML oral solution Commonly known as: Roxicodone 2.5 mL by Enteral Tube route every 6 hours as needed valproic acid 250 MG/5ML solution Commonly known as: Depakene 10 mL by Per G Tube route 4 times daily CHANGE how you take these medications atorvastatin 40 MG tablet Commonly known as: Lipitor 1 (one) tablet by Enteral Tube route once daily What changed: how to take this cloBAZam 10 MG tablet Commonly known as: Onfi 1 (one) tablet by Enteral Tube route 2 times daily What changed: how to take this folic acid 1 MG tablet Commonly known as: Folvite 1 (one) tablet by Enteral Tube route once daily What changed: how to take this lacosamide 200 MG tablet Commonly known as: Vimpat 1 (one) tablet by Enteral Tube route 2 times daily What changed: how to take this levETIRAcetam 1000 MG tablet Commonly known as: Keppra 2 (two) tablets by Enteral Tube route 2 times daily What changed: ?? how to take this ?? when to take this thiamine 100 MG tablet Commonly known as: Vitamin B-1 1 (one) tablet by Enteral Tube route once daily What changed: how to take this CONTINUE taking these medications acetaminophen 325 MG tablet Commonly known as: Tylenol Take 1 (one) tablet by mouth every 6 hours as needed for Fever or Pain aspirin 81 MG chew tablet Commonly known as: Aspirin Take 1 (one) tablet by mouth once daily polyethylene glycol 3350 17 g packet Commonly known as: Miralax Take 17 (seventeen) g by mouth once daily tamsulosin 0.4 MG capsule Commonly known as: Flomax Take 1 (one) capsule by mouth once daily At the same time every day after a meal. STOP taking these medications amLODIPine 5 MG tablet Commonly known as: Norvasc divalproex DR 500 MG tablet Commonly known as: Depakote ibuprofen 600 MG tablet Commonly known as: Motrin multivitamin daily tablet ondansetron (disintegrating) 4 MG tablet Commonly known as: Zofran ODT ondansetron 2 MG/ML injection Commonly known as: Zofran One Daily Multivitamin Adult Tabs vitamin D3 25 MCG (1000 UNITS) tablet Commonly known as: Cholecalciferol Where to Get Your Medications You can get these medications from any pharmacy Bring a paper prescription for each of these medications ?? oxyCODONE 5 MG/5ML oral solution Information about where to get these medications is not yet available Ask your nurse or doctor about these medications ?? artificial tears ophthalmic solution ?? atorvastatin 40 MG tablet ?? bisacodyl 10 MG suppository ?? cloBAZam 10 MG tablet ?? folic acid 1 MG tablet ?? lacosamide 200 MG tablet ?? levETIRAcetam 1000 MG tablet ?? tamsulosin 0.4 MG capsule ?? thiamine 100 MG tablet ?? valproic acid 250 MG/5ML solution Contact information for follow-up providers Anna Membreno MD . Specialty: Vascular Surgery Why: Thursday April 14, 2022 at 10:00 am Contact information: [address] DIV OF VASCULAR SURGERY [facility] [id number] Joyce Luevano, PNEUMATIC J[employer]ER . Specialty: Nurse Practitioner Why: Follow-up with PCP within 1 week after discharge from nursing facility Contact information: [address] [facility] [address] Contact information for after-discharge care Destination [facility] [place] . Service: [facility] Contact information: [address] [facility] [address] Discharge Instructions -1.8 cm spiculated nodule needs 3 months follow-up Amputation care: ?? Perform daily dressing changes to your amputation stump ?? Cover with guaze, wrap with kerlix, wrap with kain wrap. Keep clean, dry, and intact Miscellaneous instructions: ?? Remain non-weigh bearing to your amputation stump ?? For below knee amputation, it is very important to keep your knee straight in order to prevent acontracture. Do not prop your knee up on a pillow and continue exercises to help maintain normal range of motion ?? Do not soak incision (no tub baths or pools) ?? No ointments or creams to incision Who & when to call: ?? For any prosthetic needs or concerns please contact Nico with [employer] at [phone]; their fax number is [phone] ?? For any incision/wound concerns or needs please contact the vascular surgery office at [phone]. After hours # is [phone] Incision/wound concerns include the following: ?? Redness, increased swelling, new or worsening pain, color changes, new drainage, foul odor, if the incision opens ?? Fevers/chills/temp > [address] Follow up with vascular Dr Membreno in 1 month for a wound check; you will be contacted regarding this. To make or change an appt call [phone] Signed: Dante Nuno MD 04/01/2022 Time spent on discharge: 40 minutes. documented in this encounter Discharge Instructions * Discharge Instructions* Lakesha Francis APRN-CNP - 03/09/2022 4:04 PM CDT -1.8 cm spiculated nodule needs 3 months follow-up Amputation care: ?? Perform daily dressing changes to your amputation stump ?? Cover with guaze, wrap with kerlix, wrap with kain wrap. Keep clean, dry, and intact Miscellaneous instructions: ?? Remain non-weigh bearing to your amputation stump ?? For below knee amputation, it is very important to keep your knee straight in order to prevent acontracture. Do not prop your knee up on a pillow and continue exercises to help maintain normal range of motion ?? Do not soak incision (no tub baths or pools) ?? No ointments or creams to incision Who & when to call: ?? For any prosthetic needs or concerns please contact Nico with [employer] [facility] at [phone]; their fax number is [phone] ?? For any incision/wound concerns or needs please contact the vascular surgery office at [phone]. After hours # is [phone] Incision/wound concerns include the following: ?? Redness, increased swelling, new or worsening pain, color changes, new drainage, foul odor, if the incision opens ?? Fevers/chills/temp > [address] Follow up with vascular Dr Membreno in 1 month for a wound check; you will be contacted regarding this. To make or change an appt call [phone] documented in this encounter Medications at Time [...] needed for Constipation 03/31/2022 07/21/2022 cloBAZam (Onfi) 10 MG tablet 1 (one) tablet by Enteral Tube route 2 times daily 03/31/2022 05/06/2022 lacosamide (Vimpat) 200 MG tablet 1 (one) tablet by Enteral Tube route 2 times daily 03/31/2022 05/06/2022 lacosamide (VIMPAT) 200 MG tablet Take 1 tablet by mouth 2 times daily for 30 days 60 tablet 5 05/16/2019 06/28/2023 levETIRAcetam (Keppra) 1000 MG tablet 2 (two) tablets by Enteral Tube route 2 times daily 03/31/2022 05/06/2022 levETIRAcetam (KEPPRA) 1000 MG tablet Take 2 [...] for 30 days 180 tablet 06/10/2018 01/14/2023 oxyCODONE (Roxicodone) 5 MG/5ML oral solution 2.5 mL by Enteral Tube route every 6 hours as needed 15 mL 03/31/2022 04/10/2022 polyethylene glycol 3350 (Miralax) 17 g packet Take 17 (seventeen) g by mouth once daily 01/08/2022 06/15/2022 tamsulosin (Flomax) 0.4 MG capsule Take 1 (one) capsule by mouth once daily At the same time every day after a meal. 04/01/2022 06/15/2022 valproic acid (Depakene) 250 MG/5ML solution 10 mL by Per G Tube route 4 times daily 03/31/2022 05/06/2022 documented as of this encounter Progress Notes * Restricted notes were excluded * Denisse Conley RN - 04/01/2022 12:10 PM CDT EMS picked up the patient at 1203. Reports given to nurse Alma and EMS Problem: Fall Risk Goal: Fall risk and fall related injury risk are minimized (interventions related to the fall risk can be found in the flowsheet documentation) 04/01/2022 1210 by Denisse Conley RN Outcome: Completed 04/01/2022 1117 by Denisse Conley RN Outcome: Adequate for Discharge Problem: Skin Integrity Goal: Skin integrity is maintained or improved 04/01/2022 1210 by Denisse Conley RN Outcome: Completed 04/01/2022 1117 by Denisse Conley RN Outcome: Adequate for Discharge Problem: Nutrient: Malnutrition Goal: Total intake will meet estimated nutrient needs 04/01/2022 1210 by Denisse Conley RN Outcome: Completed 04/01/2022 1117 by Denisse Conley RN Outcome: Adequate for Discharge Problem: Pain/Discomfort Goal: Patient exhibits reduced pain/discomfort as evidenced by pain scores 04/01/2022 1210 by Denisse Conley RN Outcome: Completed 04/01/2022 1117 by Denisse Conley RN Outcome: Adequate for Discharge Goal: Patient uses pharmacological and non-pharmacological pain management strategies. 04/01/2022 1210 by Denisse Conley RN Outcome: Completed 04/01/2022 1117 by Denisse Conley RN Outcome: Adequate for Discharge Goal: Patient verbalizes acceptable level of pain relief and ability to engage in desired activity. 04/01/2022 1210 by Denisse Conley RN Outcome: Completed 04/01/2022 111 by Denisse Conley RN Outcome: Adequate for Discharge Problem: Balance Goal: LTG - Patient will maintain balance to allow for safe mobility 04/01/2022 1210 by Denisse Conley RN Outcome: Completed 04/01/2022 111 by Denisse Conley RN Outcome: Adequate for Discharge Goal: LTG - Patient will demonstrate Intervention to enhance balance for safe completion of daily activities 04/01/2022 1210 by Denisse Conley RN Outcome: Completed 04/01/2022 1117 by Denisse Conley RN Outcome: Adequate for Discharge Problem: Swallowing Goal: STG - Patient will tolerate recommended food and liquid consistencies without clinical signs and symptoms of aspiration 04/01/2022 1210 by Denisse Conley RN Outcome: Completed 04/01/2022 1117 by Denisse Conley RN Outcome: Adequate for Discharge Goal: STG - Patient will follow recommended swallowing strategies 04/01/2022 1210 by Denisse Conley RN Outcome: Completed 04/01/2022 1117 by Denisse Conley RN Outcome: Adequate for Discharge Problem: Grooming Goal: LTG - Patient will complete daily grooming tasks 04/01/2022 1210 by Denisse Conley RN Outcome: Completed 04/01/2022 111 by Denisse Conley RN Outcome: Adequate for Discharge Problem: Seizures Goal: Seizures are under control or absent 04/01/2022 1210 by Denisse Conley RN Outcome: Completed 04/01/2022 1117 by Denisse Conley RN Outcome: Adequate for Discharge Problem: Mobility Goal: Patient's mobility/activity will be maintained as optimum level for age, diagnosis and physical limitations 04/01/2022 1210 by Denisse Conley RN Outcome: Completed 04/01/2022 111 by Denisse Conley RN Outcome: Adequate for Discharge Goal: Continuum of care needs are further met through referral to outpatient services when appropriate. 04/01/2022 1210 by Denisse Conley RN Outcome: Completed 04/01/2022 111 by Denisse Conley RN Outcome: Adequate for Discharge Goal: Patient reports the ability to perform Activities of Daily Living. 04/01/2022 1210 by Denisse Conley RN Outcome: Completed 04/01/2022 1117 by Denisse Conley RN Outcome: Adequate for Discharge Problem: Isolation Goal: Prevent Transmission of Infection 04/01/2022 1210 by Denisse Conley RN Outcome: Completed 04/01/2022 1117 by Denisse Conley RN Outcome: Adequate for Discharge * Crystal Cheema, PT - 04/01/2022 11:48 AM CDT [facility] Department of Physical Medicine & Rehabilitation Progress Note Patient: Mojgan Tabor [facility] Record Number: [id number] Date of : 1960 Age: [age] year old 04/01/22 1100 Missed Visit Missed Visit Other (Comment) (pt discharging to SNF) * Denisse Conley RN - 04/01/2022 11:25 AM CDT Problem: Fall Risk Goal: Fall risk and fall related injury risk are minimized (interventions related to the fall risk can be found in the flowsheet documentation) Outcome: Adequate for Discharge Problem: Skin Integrity Goal: Skin integrity is maintained or improved Outcome: Adequate for Discharge Problem: Nutrient: Malnutrition Goal: Total intake will meet estimated nutrient needs Outcome: Adequate for Discharge Problem: Pain/Discomfort Goal: Patient exhibits reduced pain/discomfort as evidenced by pain scores Outcome: Adequate for Discharge Goal: Patient uses pharmacological and non-pharmacological pain management strategies. Outcome: Adequate for Discharge Goal: Patient verbalizes acceptable level of pain relief and ability to engage in desired activity. Outcome: Adequate for Discharge Problem: Balance Goal: LTG - Patient will maintain balance to allow for safe mobility Outcome: Adequate for Discharge Goal: LTG - Patient will demonstrate Intervention to enhance balance for safe completion of daily activities Outcome: Adequate for Discharge Problem: Swallowing Goal: STG - Patient will tolerate recommended food and liquid consistencies without clinical signs and symptoms of aspiration Outcome: Adequate for Discharge Goal: STG - Patient will follow recommended swallowing strategies Outcome: Adequate for Discharge Problem: Grooming Goal: LTG - Patient will complete daily grooming tasks Outcome: Adequate for Discharge Problem: Seizures Goal: Seizures are under control or absent Outcome: Adequate for Discharge Problem: Mobility Goal: Patient's mobility/activity will be maintained as optimum level for age, diagnosis and physical limitations Outcome: Adequate for Discharge Goal: Continuum of care needs are further met through referral to outpatient services when appropriate. Outcome: Adequate for Discharge Goal: Patient reports the ability to perform Activities of Daily Living. Outcome: Adequate for Discharge Problem: Isolation Goal: Prevent Transmission of Infection Outcome: Adequate for Discharge * Gaurav Juarez FLOOR SURFACER - 04/01/2022 9:20 AM CDT Facility Transfer Note Level of Care: Actual level of care at discharge: [facility] - Skilled Facility Facility Name: (include name of person confirming admission): [facility] Made Aware of Special Needs (if applicable): Yes RN Call Report to:[phone] Fax D/C Orders to:[phone] Transportation (company and number): [employer] [phone] Certificate of Medical Necessity rationale: Yes Date/time of transfer: 04/01/2022 @ 12:00PM Accepting MD and contact #: Dr. Hoffman Completed and Signed [id number] (if applicable): Family/Other Notified of Transfer (name/phone): Sister notified Authorization Skilled Care: Authorization for Transportation: Verified Qualifying Stay(Skilled Only): YES Comments: Name/Phone number: CLARITA Ram [phone] * Ankur Shen RN - 04/01/2022 12:53 AM CDT No falls at this time * Denisse Conley RN - 03/31/2022 4:33 PM CDT Problem: Fall Risk Goal: Fall risk and fall related injury risk are minimized (interventions related to the fall risk can be found in the flowsheet documentation) Outcome: Progressing Problem: Skin Integrity Goal: Skin integrity is maintained or improved Outcome: Progressing Problem: Pain/Discomfort Goal: Patient exhibits reduced pain/discomfort as evidenced by pain scores Outcome: Progressing Goal: Patient verbalizes acceptable level of pain relief and ability to engage in desired activity. Outcome: Progressing Problem: Seizures Goal: Seizures are under control or absent Outcome: Progressing Problem: Mobility Goal: Continuum of care needs are further met through referral to outpatient services when appropriate. Outcome: Progressing Problem: Isolation Goal: Prevent Transmission of Infection Outcome: Progressing * Gaurav Juarez MSW - 03/31/2022 3:16 PM CDT ASHWIN spoke with pt's sister Adriane [phone] and she is agreeable to sending this pt to [facility] for predatory animal exterminator care. ASHWIN spoke with Daina galvan @ [place] and they are able to accept this pt tomorrow 04/01. ASHWIN has arranged for this pt to go to SNF tomorrow @ 12:00PM via [facility]. CLARITA Fang 03/31/2022 * Dina Thomas SLP - 03/31/2022 2:03 PM CDT [facility] Physical Medicine and Rehabilitation Swallow Treatment Patient: Mojgan Tabor [facility] Record Number: [id number] Date of : 1960 Age: [age] year old PPE: PPE worn by staff: gloves;gown - disposable;mask - N95;eye protection Impressions: Pt initially agreeable to ice chips, water for effortful swallows but declined furthertrials after several bites. Provided encouragement and rationale for tx, however pt continued to refuse. Pt continues w/ questionable comprehension for pharyngeal strengthening ex and still unable toelicit a volitional swallow on command. Occasional wet vocal quality appreciated after intake. Would recommend pt remain NPO. Recommendations: Diet Solids Recommendation: NPO Recommended Form of Meds: NPO Recommended Tests/Consults: None indicated, pt participated in a Modified Barium Swallow on 03/22 Discharge Recommendations: Speech therapy is recommended to improve swallow function. SUBJECTIVE: Patient Goals: None stated Pain Assessment: Pain Rating Score #: 0 Follow-up for pain: No follow-up for pain indicated and patient agreed to proceed with treatment OBJECTIVE: Level of Consciousness: alert Positioning: Upright in bed Respiratory Status: room air Swallow Trials: Ice chips: Presentation: Spoon-Assisted Oral: Increased Anterior to Posterior Transit Pharyngeal: Occasional wet vocal quality, delayed throat clear Thin liquids: Presentation: Spoon-Assisted Oral: Poor labial seal, verbal cues required for complete lip closure around the spoon Pharyngeal: Occasional wet vocal quality Assessment: Risk For Aspiration: Severe Primary Diagnostic Impression - Oral: Mild;Moderate Primary Diagnostic Impression - Pharyngeal: Severe (Per recent MBS results) Treatment/Education/Interventions: While performing OIL FIELD PUMPER, Patient was instructed in: recommendations for NPO status given patient's elevated aspiration risk. This therapist also attempted to instruct pt on the use of effortful swallowsfor pharyngeal strengthening. Patient demonstrated Questionable understanding of instructions given. INFORMED CONSENT TO TREATMENT: Plan of care is discussed but patient with questionable understanding. Short Term Goals Patient will tolerate diet advance to PO intake without risk for aspiration. Intermediate Goal (s): Patient to discharge to appropriate next level of inpatient care. Plan: Continued ST for pharyngeal strengthening ex, ongoing assessment * Dante Nuno MD - 03/31/2022 1:31 PM CDT GENERAL INTERNAL MEDICINE Progress note 03/31/2022 1:31 PM Admit Date: 03/08/2022 Subjective: No acute events overnight. Patient is awake and alert this morning. He is not oriented to time, place or person. Following commands. Answering questions appropriately. Medications:: Current Facility-Administered Medications Medication ??? 0.9% NaCl injection 3 mL And ??? 0.9% NaCl injection 1-10 mL ??? acetaminophen (Tylenol) tablet 650 mg ??? acetaminophen (Tylenol) tablet 650 mg ??? artificial tears ophthalmic solution 1 drop ??? aspirin chew tablet 81 mg ??? atorvastatin (Lipitor) tablet 40 mg ??? bisacodyl (Dulcolax) suppository 10 mg ??? cloBAZam (Onfi) tablet 10 mg ??? enoxaparin (Lovenox) injection 40 mg ??? folic acid (Folvite) tablet 1 mg ??? lacosamide (Vimpat) tablet 200 mg ??? levETIRAcetam (Keppra) tablet 2,000 mg ??? oxyCODONE (Roxicodone) oral solution 2.5 mg ??? perflutren lipid microsphere (Definity) injection 0.5 mL ??? polyethylene glycol 3350 (Miralax) packet 17 g ??? tamsulosin (Flomax) capsule 0.4 mg ??? thiamine (Vitamin B-1) tablet 100 mg ??? valproic acid (Depakene) solution 500 mg Physical Examination: BP 115/75 Pulse 100 Temp 97.7 ??F (36.5 ??C) (Oral) Resp 16 Ht 1.829 m (6') Wt 68 kg (150lb) SpO2 99% GEN: Awake, alert but not oriented, in NAD HEENT: NCAT, EOMI, MMM RESP: Clear to auscultation bilaterally CARDIO: Regular rate and rhythm, Nl S1 and S2 GI: Abdomen soft and non tender, non-distended, +BS, G-tube in place- no signs of infection EXT: No edema. Status post left AKA NEURO: Following commands Labs: CBC: Recent Labs Lab Units 03/31/2263603/30/2221503/29/22317 WBC 10??3/uL 8.5 6.8 5.6 RBC 10??6/uL 3.34* 3.83* 3.35* HGB g/dL 10.8* 12.2 10.8* HCT % 33.0* 37.5 33.1* BMP: Recent Labs Lab Units 03/31/2263603/30/2221503/29/22317 NA mmol/L 137 140 139 CL mmol/L 102 103 102 CO2 mmol/L 31* 26 28 BUN mg/dL 14 13 11 CREATININE mg/dL 0.46* 0.55* 0.50* CALCIUM mg/dL 9.3 9.6 9.3 Phosphorus: No results for input(s): PHOS in the last 168 hours. Radiology: No results found. Microbiology Results (Displays last 21 days for this encounter ONLY) Procedure Component Value - Date/Time CULTURE BLOOD [[id number]] (Normal) Collected: 03/12/22 0200 Lab Status: Final result Specimen: Blood Peripheral Updated: 03/17/22831 Culture No growth day 5 CULTURE BLOOD [[id number]] (Normal) Collected: 03/12/22 0158 Lab Status: Final result Specimen: Blood Peripheral Updated: 03/17/22831 Culture No growth day 5 CULTURE BLOOD [[id number]] (Normal) Collected: 03/11/22347 Lab Status: Final result Specimen: Blood Peripheral Updated: 03/16/22801 Culture No growth day 5 CULTURE BLOOD [[id number]] (Normal) Collected: 03/11/22 033 Lab Status: Final result Specimen: Blood Peripheral Updated: 03/16/22801 Culture No growth day 5 Assessment: Mojgan Tabor is a 62 year old male with history of hypertension, CVA, Alzheimer's disease, epilepsy, and hyperlipidemia who presented on 03/08/2022 from SNF with change in mental status and was foundto have signs of seizures on cEEG. Patient was started on antiepileptic medications with improvement in mental status. Patient underwent PEG tube placement due to dysphagia. Patient completed antibiotics for MSSA bacteremia and now awaiting SNF placement. Problem List/Plan: # refractory seizure disorder; Continue Keppra, Vimpat, clobazam and valproic acid per Neurology. Follow-up with neurology on 05/06/2022. # dysphagia # severe protein calorie malnutrition Unable to pass barium swallow study. Unable to tolerate NG tube due to poor swallowing. Status post PEG tube placement on 03/26/2022. Continue tube feeds # MSSA bacteremia; Cefazolin course completed on 03/25/2022 # history of CVA; continue aspirin and Lipitor # hypertension; Discontinue Hydralazine IV p.r.n. Will add oral antihypertensive agent if needed. # left lower extremity ischemia status post left AKA on 03/15/2022 by vascular surgery. Follow-up with vascular surgery on 04/14/2022 DVT PPx: Lovenox Code Status: Full code Discharge Planning: Await SNF placement. Dante Nuno MD General Internal Medicine 03/31/2022 1:31 PM * Angelita Jarrett RN - 03/30/2022 11:26 PM CDT Problem: Skin Integrity Goal: Skin integrity is maintained or improved 03/30/2022 232 by Angelita Jarrett RN Outcome: Progressing 03/30/2022 2325 by Angelita Jarrett RN Outcome: Progressing Problem: Fall Risk Goal: Fall risk and fall related injury risk are minimized (interventions related to the fall risk can be found in the flowsheet documentation) 03/30/20222325 by Angelita Jarrett RN Outcome: Progressing 03/30/2022 232 by Angelita Jarrett RN Outcome: Progressing Patient on dolphin bed with bed alarm on. * Dante Nuno MD - 03/30/2022 1:19 PM CDT GENERAL INTERNAL MEDICINE Progress note 03/30/2022 1:19 PM Admit Date: 03/08/2022 Subjective: No acute events overnight. Patient is drowsy this morning. Opens eyes to verbal stimuli. Not following commands. Medications:: Current Facility-Administered Medications Medication ??? 0.9% NaCl injection 3 mL And ??? 0.9% NaCl injection 1-10 mL ??? acetaminophen (Tylenol) tablet 650 mg ??? acetaminophen (Tylenol) tablet 650 mg ??? artificial tears ophthalmic solution 1 drop ??? aspirin chew tablet 81 mg ??? atorvastatin (Lipitor) tablet 40 mg ??? bisacodyl (Dulcolax) suppository 10 mg ??? cloBAZam (Onfi) tablet 10 mg ??? folic acid (Folvite) tablet 1 mg ??? hydrALAZINE (Apresoline) injection 10 mg ??? lacosamide (Vimpat) tablet 200 mg ??? levETIRAcetam (Keppra) tablet 2,000 mg ??? oxyCODONE (Roxicodone) oral solution 2.5 mg ??? perflutren lipid microsphere (Definity) injection 0.5 mL ??? polyethylene glycol 3350 (Miralax) packet 17 g ??? tamsulosin (Flomax) capsule 0.4 mg ??? thiamine (Vitamin B-1) tablet 100 mg ??? valproic acid (Depakene) solution 500 mg Physical Examination: BP 122/85 Pulse 95 Temp 97.3 ??F (36.3 ??C) (Axillary) Resp 16 Ht 1.829 m (6') Wt 68 kg (150 lb) SpO2 94% GEN: Drowsy, in NAD HEENT: NCAT, EOMI, MMM RESP: Clear to auscultation bilaterally CARDIO: Regular rate and rhythm, Nl S1 and S2 GI: Abdomen soft and non tender, non-distended, +BS EXT: No edema. Status post left AKA NEURO: Not following commands Labs: CBC: Recent Labs Lab Units 03/30/22 02103/29/22 0318 03/28/22 1105 WBC 10??3/uL 6.8 5.6 5.8 RBC 10??6/uL 3.83* 3.35* 3.48* HGB g/dL 12.2 10.8* 11.2* HCT % 37.5 33.1* 34.0* BMP: Recent Labs Lab Units 03/30/22 0216 03/29/22 0318 03/28/22 1105 NA mmol/L 140 139 138 CL mmol/L 103 102 103 CO2 mmol/L 26 28 27 BUN mg/dL 13 11 11 CREATININE mg/dL 0.55* 0.50* 0.49* CALCIUM mg/dL 9.6 9.3 9.2 Phosphorus: Recent Labs Lab Units 03/24/22 0258 PHOS mg/dL 3.1 Radiology: No results found. Microbiology Results (Displays last 21 days for this encounter ONLY) Procedure Component Value - Date/Time CULTURE BLOOD [[id number]] (Normal) Collected: 03/12/22 0200 Lab Status: Final result Specimen: Blood Peripheral Updated: 03/17/22 0832 Culture No growth day 5 CULTURE BLOOD [[id number]] (Normal) Collected: 03/12/22 0158 Lab Status: Final result Specimen: Blood Peripheral Updated: 03/17/22 0832 Culture No growth day 5 CULTURE BLOOD [[id number]] (Normal) Collected: 03/11/22 0348 Lab Status: Final result Specimen: Blood Peripheral Updated: 03/16/22 0802 Culture No growth day 5 CULTURE BLOOD [[id number]] (Normal) Collected: 03/11/22 0337 Lab Status: Final result Specimen: Blood Peripheral Updated: 03/16/22801 Culture No growth day 5 Assessment: Mojgan Tabor is a 62 year old male with history of hypertension, CVA, Alzheimer's disease, epilepsy, and hyperlipidemia who presented on 03/08/2022 from SNF with change in mental status and was foundto have signs of seizures on cEEG. Patient was started on antiepileptic medications with improvement in mental status. Patient underwent PEG tube placement due to dysphagia. Patient completed antibiotics for MSSA bacteremia and now awaiting SNF placement. Problem List/Plan: # refractory seizure disorder; Continue Keppra, Vimpat, clobazam and valproic acid per Neurology. # dysphagia # severe protein calorie malnutrition Unable to pass barium swallow study. On able to tolerate NG tube due to poor swallowing. Status post PEG tube placement on 03/26/2022. Continue tube feeds # MSSA bacteremia; Cefazolin course completed on 03/25/2022 # history of CVA; continue aspirin and Lipitor # hypertension; Discontinue Hydralazine IV p.r.n. Will add oral antihypertensive agent if needed. # left lower extremity ischemia status post left AKA on 03/15/2022 by vascular surgery DVT PPx: Lovenox Code Status: Full code Discharge Planning: Await SNF placement Dante Nuno MD General Internal Medicine 03/30/2022 1:19 PM * Shakila Medina, OT - 03/30/2022 12:08 PM CDT [facility] Physical Medicine and Rehabilitation Occupational Therapy Progress Note New OT orders placed following general anesthesia for PEG placement with no significant changes in functional performance this day. Plan to continue with initial POC and tx as indicated. Patient: Mojgan Tabor Med Record Number: [id number] Date of : 1960 Age: [age] year old PPE worn by staff: mask - surgical;gloves;gown - disposable Co-tx with PT 2/2 anticipated level of skilled assist Discharge Recommendation: Patient will benefit from multidisciplinary inpatient therapies. Nurse and Physical Therapy contacted regarding patient status and/or discharge plan. Activity Level: up ad daniela PRECAUTIONS: Weight Bearing Status: Lower Extremity Weight Bearing: Left (NWB) SUBJECTIVE: Subjective: Pt agreeable to tx. Initially lethargic progressing to increased level of alertness with EOB activity Pain Assessment: Pain Rating Score #: 0 Follow-up for pain: No follow-up for pain indicated and patient agreed to proceed with treatment OBJECTIVE: At start of therapy session, patient found in bed General Appearance: 62 y/o male in NAD LDA: IV's: Peripheral line and PEG Tube Vitals: (*Assess the 3 levels of oxygen saturations both for room air and 02 unless rest on room air is 88% or less). Rest BP: HR: Sp02 Sp02 Room Air L O2 Ex/Gait/Activity Without 02 BP: HR: Sp02 Room Air Ex/Gait/Activity With 02 BP: HR: Sp02 L O2 Post Activity BP: HR: Sp02 Sp02 L O2 Room Air Observations: No s/s dyspnea, dizziness throughout tx. Please see corresponding PT note for precisevitals. Mental Status/Cognition: Orientation Level: Oriented to Person;Disoriented to Time (pt accurately reports birthdate with family cuing, oriented to place with increased time/cuing.) Cognition: Follows Commands-inconsistent (pt follows approximately 30% of simple instructions with significant processing time) Memory: Decreased recall of biographical information;Decreased recall of recent events (pt does accurately name family members (sisters) present throughout tx) Following Commands: Follows one step commands with increased time (repetition, tactile and visual cuing) Safety Judgement: Decreased awareness of need for safety Awareness of Errors: Decreased awareness of deficits;Assistance required to identify errors made;Assistance required to correct errors made Problem Solving: Assistance required to identify errors made;Assistance required to generate solutions;Assistance required to implement solutions Mobility: a gait belt and non-slip socks were used for all out of bed activity this date. Bed Mobility: Rolling: Maximal Assistance to Right Supine to Sit: Maximum Assistance;X 2;Requires Verbal Cues for Safety;Requires Verbal Cues for Technique with HOB flat Sit to Supine: Maximum Assistance;X 2;Requires Verbal Cues for Technique;Requires Physical Cues forTechnique Transfers: Sit to Stand: Activity Does Not Occur (not addressed 2/2 poor sitting balance, decreased cognition,and NWB L LE status) Functional Ambulation: Comments: Pt non-ambulatory at this time Balance: Balance Scales/Tests Used: Sitting: Static/Dynamic Sitting - Static: Poor +;With Both Upper Extremity's Support Sitting - Dynamic: Poor Comments: Minimal assist progressing to brief instances of SBA for static sitting balance. Decreased postural adjustments with max verbal and tactile cuing. Activities of Daily Living: Oral Facial Hygiene: Moderate Assistance (wash face seated EOB) Lower Body Dressing: Total Assistance (don R sock in supine) Splint Issued/Checked: none ACTIVITY TOLERANCE: Patient's activity tolerance: fair minus. Modified Florentino: Current Modified Milam Score: 5 TREATMENT/INTERVENTIONS: ADL training Functional transfer training Bed mobility Safety awareness ?? EDUCATION: While performing OT, Patient was instructed in:functional mobility training, self-care training, safety awareness/fall precautions , discharge planning ?? Presented to patient who demonstrates Questionable understanding of instructions given. ?? INFORMED CONSENT TO TREATMENT: Plan of care including recommended therapy, goals and frequency, discussed with patient who understands and agrees to proceed. ?? ASSESSMENT: Patient continues to benefit from skilled Occupational Therapy to achieve the following functional goals. ?? Short Term Goals: Goal Formation With patient Cognition:?1 step commands and 100% of the time Patient will perform grooming??at edge of bed and with minimal assist Patient will perform supine to/from sit??with minimal assist Pt will demonstrate fair sitting balance to complete ADL at EOB with Min assist ?? Intermediate Goal(s): Patient to discharge to appropriate next level of inpatient care ?? Plan: Continue with goals as established. ?? If patient is discharged from the facility, this note serves as a discharge summary if further occupational therapy visits did not occur. Refer to filed flowsheet for further details. Following therapy session, patient left in bed, with bed alarm on , with call light within reach, with family in room, with RN in room. * Nohemi Nroman RN - 03/30/2022 11:30 AM CDT Problem: Swallowing Goal: STG - Patient will tolerate recommended food and liquid consistencies without clinical signs and symptoms of aspiration Outcome: Progressing Goal: STG - Patient will follow recommended swallowing strategies Outcome: Progressing Problem: Fall Risk Goal: Fall risk and fall related injury risk are minimized (interventions related to the fall risk can be found in the flowsheet documentation) Outcome: Progressing Problem: Skin Integrity Goal: Skin integrity is maintained or improved Outcome: Progressing Problem: Nutrient: Malnutrition Goal: Total intake will meet estimated nutrient needs Outcome: Progressing Problem: Pain/Discomfort Goal: Patient exhibits reduced pain/discomfort as evidenced by pain scores Outcome: Progressing Goal: Patient uses pharmacological and non-pharmacological pain management strategies. Outcome: Progressing Goal: Patient verbalizes acceptable level of pain relief and ability to engage in desired activity. Outcome: Progressing Problem: Grooming Goal: LTG - Patient will complete daily grooming tasks Outcome: Progressing * Sole Saravia, PT - 03/30/2022 10:55 AM CDT [facility] Physical Medicine and Rehabilitation Physical Therapy Progress Note Patient: Mojgan Tabor [facility] Record Number: [id number] Date of : 1960 Age: [age] year old PPE worn by staff: gloves;mask - procedural;gown - disposable PPE worn by patient: gown - patient, clean;socks - clean Co-treat with OT due to skilled level of assist. New PT order received s/p EGD with PEG. Re-evaluation not indicated due to no change in medical and functional status. Discharge Recommendation: Patient will benefit from multidisciplinary inpatient therapies. SUBJECTIVE: Pt with delayed response, nods head yes to therapy, states he is at [facility] Pain Assessment: Pain Rating Score #: 0 Follow-up for pain: No follow-up for pain indicated and patient agreed to proceed with treatment PRECAUTIONS: Weight Bearing Status: (NWB LAKA) Activity Level: Up ad daniela OBJECTIVE: At start of therapy session, patient found in bed and with bed alarm on General Appearance: pt sleeping, family in room LDAs: IV's: Peripheral line and PEG Tube Vitals: (*Assess the 3 levels of oxygen saturations both for room air and 02 unless rest on room air is 88% or less). Rest BP: 111/69 (81) HR: 96 Sp02 98 Room Air Post activity BP: 124/85 (96) HR: 92 Sp02 97 Room Air Observations: no symptom reported, pt in no distress on room air Mental Status/Cognition: Level of Consciousness-Adult: Drowsy (alert with mobility) Orientation Level: Oriented to Person;Oriented to Hospital;Disoriented to Situation;Disoriented to Time Cognition: Follows Commands-inconsistent;Processing-delayed;Judgement-decreased;Attention/concentra tion-decreased Attention Span: Difficulty attending to directions (right visual tracking only with assisted head turning, left side neglect) Memory: Decreased recall of recent events;Decreased recall of precautions Following Commands: Follows one step commands with increased time (at least 30% with max verbal/tactile cues) Awareness of Errors: Decreased awareness of deficits;Assistance required to identify errors made;Assistance required to correct errors made Problem Solving: Assistance required to identify errors made;Assistance required to generate solutions;Assistance required to implement solutions Mobility: A gait belt and non-slip socks were used for all out of bed activity this date. Bed Mobility: Rolling: Maximal Assistance to Right Supine to Sit: Maximum Assistance;X 2;Requires Physical Cues for Technique with HOB flat Sit to Supine: Maximum Assistance;X 2;Requires Physical Cues for Technique Transfers: Sit to Stand: Activity Does Not Occur (poor sitting balance) Stand to Sit: Activity Does Not Occur Bed to Chair: Activity Does Not Occur Gait: NA, poor sitting balance Weight Bearing Status: (NWB LAKA) Balance: Balance Scales/Tests Used: Sitting: Static/Dynamic Sitting - Static: Poor +;With Both Upper Extremity's Support Sitting - Dynamic: Poor ACTIVITY TOLERANCE: Patient's activity tolerance: fair TREATMENT/INTERVENTIONS: bed mobility training as to rolling and supine to/from sit, sitting balance/postural activities on edge of bed x 16 minutes with minimal to moderate assist to maintain upright and midline posture, seated AAROM RLE leg kicks x 5 reps, supine left AKA limb hip abd/add to neutral, hip flex/ext to neutral x 5 reps, monitoring of vitals, cognitive stimulation and pt education Modified Milam: Current Modified Florentino Score: 5 EDUCATION: While performing PT, Patient was instructed in:functional mobility training, safety awareness/fall precautions , purpose of therapy Presented to patient who demonstrates Questionable understanding of instructions given. ASSESSMENT: Patient would benefit from additional Physical Therapy sessions to achieve the following functionalgoals to enhance independence. Short Term Goals: Goal Formation?With patient Patient will perform bed mobility??with maximal assist Patient will transfer sit to/from stand??with maximal assist Patient will transfer bed to/from chair??with maximal assist ?? Intermediate Goal(s): Patient to discharge to appropriate next level of inpatient care INFORMED CONSENT TO TREATMENT: Plan of care is discussed but patient with questionable understanding. Equipment Issued: none Plan: Patient continues to benefit from skilled therapy services., Continue with goals as established. If patient is discharged from the facility, this note serves as a discharge summary if further physical therapy visits did not occur. Refer to filed flowsheet for further details. Following therapy session, patient left in bed, with bed alarm on , with family in room, with RN valentinaoom, lines intact, rails and up with sz pads in place as per arrival, call light in reach. . * Ezio Sorto, MINH/LD - 03/30/2022 8:47 AM CDT Nutrition Re-Assessment Brief Synopsis: Patient is dx with malnutrition; Specific criteria can be found in assessment below Nutrition Plan: NPO on TF Jevity 1.5 at 60 ml/hr. Provides 2160 kcal, 92 g protein, 311 g carbohydrate, 1094 ml free water. +50 ml q 6 hrs free water flush or per MD if on IVF +100 ml q4 hrs free water flush or per MD if not on additional fluids?? Bolus feeds Jevity 1.5 360ml x 4times. + 100ml FWF before and after each feed Recommendations to Physician: See bolus recs above. Comments: Pt scheduled for reassessment. PEG placed 03/25. Pt receiving Jevity 1.5 @ goal of 60ml/hr now. Lab reviewed, no change to TF regimen at this time. + BM 03/29. RD following. Assessment: Med/Surg History and Clinical Diagnoses: a PMHx of Alzheimer's disease who is being evaluated for AMS. Pt reportedly presented with worsened mental status from baseline, along with tachycardia and fever. Pt labs reportedly demonstrate normal UA, elevated lactic acid, elevated troponin, and WBC over20,000. Diet order accuracy Current diet order: NPO Current supplement order: Ensure HP TID Current tube feeding order: Jevity 1.5 60ml/hr Current Parenteral order: none Nutrition recommendation: agree with current nutrition order P.O.Intake for the past 48 hrs:No data recorded Supplement(s) Consumed- Last 48 hours None Food Allergies: No known food allergies GI Concerns: None Chewing/Swallowing: Dysphagia Pain affecting intake: No Admission weight: Weight: 150 lb (68 kg) (03/08/22 1359) Recent Weights/Methods 12/09/2021 1023 12/21/2021 1236 01/01/2022 0200 01/02/2022 0200 01/03/2022 0300 02/16/2022 1107 03/05/2022 1017 03/08/2022 1359 Weight: 131 lb (59.4 kg) 130 lb (59 kg) 143 lb 8.3 oz (65.1 kg) 142 lb 3.2 oz (64.5 kg) 139 lb 5.3 oz (63.2 kg) 131 lb (59.4 kg) 138 lb (62.6 kg) 150 lb (68 kg) Weight Method (Utilize Scales): -- Estimated Bedscale Bedscale Bedscale -- Stated Estimated BMI: Body mass index is 20.34 kg/m??. BMI Range: Normal Wt Comments: monitoring. Height: 6' (182.9 cm) IBW/lb (Calculated) Male: 178 , Laboratory values reviewed. Recent Labs Component Name 03/30/22 0216 03/29/22 0318 03/28/22 1105 03/18/22 0606 03/17/22 1112 03/16/22 0619 03/14/22 2203 03/14/22 0458 03/12/22 0158 03/11/22 1059 BUN 13 11 11 - 10 12 9 11 - 7 CREATININE 0.55* 0.50* 0.49* - 0.53* 0.69* 0.52* 0.49* - 0.50* NA 140 139 138 - 140 142 140 137 - 139 POTASSIUM 4.9* 4.2 4.8* - 3.8 4.2 3.8 3.8 - 3.2* CL 103 102 103 - 106 107 104 107 - 104 CO2 26 28 27 - 29 29 28 26 - 30* GLUCOSE 82 96 115 - 116* 85 108 79 - 103 CALCIUM 9.6 9.3 9.2 - 9.0 8.5 9.1 9.0 - 8.6 PROT - - - - 6.2 - - 5.8* - 5.9* ALB - - - - 1.8* 1.6* 1.8* 1.7* - 1.9* TBILI - - - - 0.2 - - 0.3 - 0.4 ALKPHOS - - - - 73 - - 73 - 71 ALT - - - - 21 - - 23 - 26 AST - - - - 34 - - 35* - 60* ANIONGAP 16 13 13 - 9 10 12 8 - 8 BCR 24* 22 22 - 19 17 17 22 - 14 OSMOLALITY 289 287 286 - 290 293 289 282 - 286 AGRATIO - - - - 0.4* - - 0.4* - 0.5* EGFR >90 >90 >90 - >90 >90 >90 >90 - >90 - = values in this interval not displayed. Medications noted. Current Facility-Administered Medications Medication ??? 0.9% NaCl injection 3 mL And ??? 0.9% NaCl injection 1-10 mL ??? acetaminophen (Tylenol) tablet 650 mg ??? acetaminophen (Tylenol) tablet 650 mg ??? artificial tears ophthalmic solution 1 drop ??? aspirin chew tablet 81 mg ??? atorvastatin (Lipitor) tablet 40 mg ??? bisacodyl (Dulcolax) suppository 10 mg ??? cloBAZam (Onfi) tablet 10 mg ??? folic acid (Folvite) tablet 1 mg ??? hydrALAZINE (Apresoline) injection 10 mg ??? lacosamide (Vimpat) tablet 200 mg ??? levETIRAcetam (Keppra) tablet 2,000 mg ??? oxyCODONE (Roxicodone) oral solution 2.5 mg ??? perflutren lipid microsphere (Definity) injection 0.5 mL ??? polyethylene glycol 3350 (Miralax) packet 17 g ??? tamsulosin (Flomax) capsule 0.4 mg ??? thiamine (Vitamin B-1) tablet 100 mg ??? valproic acid (Depakene) solution 500 mg Skin/Wound: wound to foot Estimated Energy Needs: KCAL: 2039 (30kcal/kg ABW) Protein (g): 82-102 (1.2-1.5g/kg IBW) Fluid (ml): 1 ml/kcal Needs based on: Kcal/kg- (Comment) (based on ABW of 68kg) Recommended Access Route: TF Education needed: None Education Provided: Not appropriate (pt confused) Nutrition Care Process (1) Nutrition Diagnostic Statement: [...] Goal Progress: Continue with current goal Ascom # [id number] * Sofía Iraheta RN - 03/30/2022 3:34 AM CDT Wound covered with Guaze wrap then covered with kain wrap * Sofía Iraheta RN - 03/29/2022 11:27 PM CDT Received, awake with eyes closed, denies pain, G-tube stoma patent. MD notified * Artur Mcgraw MD - 03/29/2022 11:22 PM CDT Hospital Medicine Acceptance Note Name: Mojgan Tabor Age: [age] year old Room: [facility]/ Date Admitted: 03/08/2022 Chief Complaint: Seizure disorder Summary 61-year-old male with past medical history of hypertension, CVA, hyperlipidemia, Alzheimer and epilepsy who presented for a change in mental status and was found to have signs of seizure on cEEG. He was started on his anti epileptic regimen with improvement in mental status. He failed his swallow evaluation and underwent PEG tube placement. He completed antibiotics for MSSA bacteremia and is now pending SNF placement Subjective: Patient was seen and examined at bedside. Oriented x2. No complaints Objective: Vitals: 03/29/22 0757 03/29/22 1151 03/29/22 1607 03/29/22 1939 BP: 128/83 136/83 123/84 135/86 Pulse: 101 94 103 99 Resp: 18 Temp: 98.5 ??F (36.9 ??C) 97.4 ??F (36.3 ??C) 97.9 ??F (36.6 ??C) 98.1 ??F (36.7 ??C) SpO2: 100% 100% Weight: Height: Estimated body mass index is 20.34 kg/m?? as calculated from the following: Height as of this encounter: 1.829 m (6'). Weight as of this encounter: 68 kg (150 lb). Physical Exam: General: Alert, cooperative, NAD Skin: No rashes or lesions noted HEENT: NC,AT, PERRL, EOMI, No drainage or sinus tenderness, nares patent, Mucous membranes moist Neck: Supple, no JVD Heart: RRR, normal S1 and S2 Lungs: Clear to auscultation. No wheezes, rales or rhonchi Abdomen: Soft, non-tender, normal bowel sounds.??PEG tube in place Extremities: No edema Pulses: 2+ and symmetric MSKL: Normal bulk and tone. Intact ROM in all extremities Neuro: Alert and oriented X2 Labs: Recent Labs Component Name 03/29/22 0318 03/25/22 0351 03/24/22 0258 03/18/22 0606 03/17/22 1112 03/12/22 0158 03/11/22 1059 WBC 5.6 - 11.0* - 11.2* - 11.7* HGB 10.8* - 10.9* - 10.7* - 11.1* HCT 33.1* - 33.0* - 32.7* - 32.5* NA 139 - 143 - 140 - 139 CL 102 - 107 - 106 - 104 BUN 11 - 12 - 10 - 7 CREATININE 0.50* - 0.48* - 0.53* - 0.50* PHOS - - 3.1 - - - 2.7* CALCIUM 9.3 - 9.1 - 9.0 - 8.6 PT - - - - - - 15.4* INR - - - - - - 1.2 AST - - - - 34 - 60* ALT - - - - 21 - 26 ALKPHOS - - - - 73 - 71 TBILI - - - - 0.2 - 0.4 - = values in this interval not displayed. Imaging: No results found. Epilepsy, unspecified, not intractable, without status epilepticus (CMS/HCC) POA: Yes History of CVA (cerebrovascular accident) POA: Yes Hypertension POA: Yes Sepsis without acute organ dysfunction (CMS/HCC) POA: Unknown Bacteremia POA: Unknown Pneumonia POA: Unknown Ulcer of left foot (CMS/HCC) POA: Unknown PAD (peripheral artery disease) (CMS/HCC) POA: Unknown Protein calorie malnutrition (CMS/HCC) POA: Unknown Assessment and Plan: 62 year old male with past medical history significant for HTN, HLD, PVD,??CVA alcohol abuse, and??cervical osteoarthritis,??who??presented to [facility] from SNF??on 03/08/2022 for??worsening mentation 1. Refractory seizure disorder:?? Continue Keppra, Vimpat,??ativan switched to Clobazam and valproic acid through PEG tube neurology consulted ?? 2. Dysphagia/Severe protein calorie malnourishment:?? -unable to pass barium swallow study, speech therapy on board??and continued to fail swallo evaluation -unable to tolerate NG tube due to poor swallow it keeps ending up in his oral cavity??(mulitple attempts by different team members) -family agreeable to PEG tube placement given multiple AED regimen and poor oral intake -??PEG tube placed on 03/26, tube feeds??continuing? 3. MSSA bacteremia:??finished??cefazolin (EOT 03/25) ?? 4. Hx of CVA: continue aspirin and lipitor ?? 5. HTN: unable to swallow switch amlodipine to PRN IV Hydralazine ?? Lines:??PIV Disposition: Inpatient Diet:??Tube feeds Prophylaxis:?sq heparin Code: Full Artur Mcgraw MD Hospitalist, Internal Medicine * Mariajose Estrada RN - 03/29/2022 9:30 PM CDT Pt transferred to [facility] via [facility] [place]. Report given to nurse Bautista. Belongings and meds sent withpt. Sister Babak Forrest informed of transfer , room number and phone number. * Apple Lovell RN - 03/29/2022 12:52 PM CDT Problem: Fall Risk Goal: Fall [...] engage in desired activity. Outcome: Progressing Problem: Nutrient: Malnutrition Goal: Total intake will meet estimated nutrient needs Outcome: Progressing * Dina Thomas SLP - 03/29/2022 10:51 AM CDT [facility] Physical Medicine and Rehabilitation Swallow Treatment Patient: Mojgan Tabor Med Record Number: [id number] Date of : 1960 Age: [age] year old PPE: PPE worn by staff: gloves;gown - disposable;mask - N95;eye protection Impressions: Pt somnolent but rouses easily to verbal cues. Pt agreeable to ice chips for effortfulswallows. Pt continues w/ questionable comprehension for pharyngeal strengthening ex and still unable to elicit a volitional swallow on command. Occasional weak cough appreciated after intake. Would recommend pt remain NPO. Recommendations: Diet Solids Recommendation: NPO Recommended Form of Meds: NPO Recommended Tests/Consults: None indicated, pt participated in a Modified Barium Swallow on 03/22 Discharge Recommendations: Speech therapy is recommended to improve swallow function. SUBJECTIVE: Patient Goals: None stated Pain Assessment: Pain Rating Score #: 0 Follow-up for pain: No follow-up for pain indicated and patient agreed to proceed with treatment OBJECTIVE: Level of Consciousness: drowsy, rouses easily to stimuli Positioning: Upright in bed Respiratory Status: room air Swallow Trials: Ice chips: Presentation: Spoon-Assisted Oral: Increased Anterior to Posterior Transit Pharyngeal: Occasional weak cough Assessment: Risk For Aspiration: Severe Primary Diagnostic Impression - Oral: Mild;Moderate Primary Diagnostic Impression - Pharyngeal: Severe (Per recent MBS results) Treatment/Education/Interventions: While performing OIL FIELD PUMPER, Patient was instructed in: recommendations for NPO status given patient's elevated aspiration risk. This therapist also attempted to instruct pt on the use of effortful swallowsfor pharyngeal strengthening. Patient demonstrated Questionable understanding of instructions given. INFORMED CONSENT TO TREATMENT: Plan of care is discussed but patient with questionable understanding. Short Term Goals Patient will tolerate diet advance to PO intake without risk for aspiration. Technical Mgr Goal (s): Patient to discharge to appropriate next level of inpatient care. Plan: Continued ST for pharyngeal strengthening ex, ongoing assessment * Artur Mcgraw MD - 03/29/2022 10:16 AM CDT [facility] Medicine Progress Note Name: Mojgan Tabor Age: [age] year old Room: 610/01 Date Admitted: 03/08/2022 Chief Complaint: Seizure disorder Subjective: Patient was seen and examined at bedside. Oriented x2 today. Denies any pain. More oriented than yesterday Pending SNF placement Objective: Vitals: 03/28/22203203/29/22 0047 03/29/22 0536 03/29/22 0757 BP: 116/75 107/86 129/77 128/83 Pulse: 104 107 107 101 Resp: 18 18 18 Temp: 99.6 ??F (37.6 ??C) 97.9 ??F (36.6 ??C) 98.1 ??F (36.7 ??C) 98.5 ??F (36.9 ??C) SpO2: 97% 99% 97% Weight: Height: Estimated body mass index is 20.34 kg/m?? as calculated from the following: Height as of this encounter: 1.829 m (6'). Weight as of this encounter: 68 kg (150 lb). Physical Exam: General: Alert, cooperative, NAD [...] in all extremities Neuro: Alert and oriented X2 Labs: Recent Labs Component Name 03/29/22 0318 03/25/22 0351 03/24/22 0258 03/18/22 0606 03/17/22 1112 03/12/22 0158 03/11/22 1059 WBC 5.6 - 11.0* - 11.2* - 11.7* HGB 10.8* - 10.9* - 10.7* - 11.1* HCT 33.1* - 33.0* - 32.7* - 32.5* NA 139 - 143 - 140 - 139 CL 102 - 107 - 106 - 104 BUN 11 - 12 - 10 - 7 CREATININE 0.50* - 0.48* - 0.53* - 0.50* PHOS - - 3.1 - - - 2.7* CALCIUM 9.3 - 9.1 - 9.0 - 8.6 PT - - - - - - 15.4* INR - - - - - - 1.2 AST - - - - 34 - 60* ALT - - - - - ALKPHOS - - - - 73 - 71 TBILI - - - - 0.2 - 0.4 - = values in this interval not displayed. Imaging: No results found. Epilepsy, unspecified, not intractable, without status epilepticus (CMS/HCC) POA: Yes History of CVA (cerebrovascular accident) POA: Yes Hypertension POA: Yes Sepsis without acute organ dysfunction (CMS/HCC) POA: Unknown Bacteremia POA: Unknown Pneumonia POA: Unknown Ulcer of left foot (CMS/HCC) POA: Unknown PAD (peripheral artery disease) (CMS/HCC) POA: Unknown Protein calorie malnutrition (CMS/HCC) POA: Unknown Assessment and Plan: 62 year old male with past medical history significant for HTN, HLD, PVD,??CVA alcohol abuse, and??cervical osteoarthritis,??who??presented to [facility] from SNF??on 03/08/2022 for??worsening mentation 1. Refractory seizure disorder:?? Continue Keppra, Vimpat,??ativan switched to Clobazam and valproic acid through PEG tube neurology consulted ?? 2. Dysphagia/Severe protein calorie malnourishment:?? -unable to pass barium swallow study, speech therapy on board??and continued to fail swallo evaluation -unable to tolerate NG tube due to poor swallow it keeps ending up in his oral cavity??(mulitple attempts by different team members) -family agreeable to PEG tube placement given multiple AED regimen and poor oral intake -??PEG tube placed on 03/26, tube feeds??continuing? 3. MSSA bacteremia:??finished??cefazolin (EOT 03/25) ?? 4. Hx of CVA: continue aspirin and lipitor ?? 5. HTN: unable to swallow switch amlodipine to PRN IV Hydralazine ?? 6. HFrEF: stable, monitor Lines:??PIV Disposition: Inpatient Diet:??Tube feeds Prophylaxis:?sq heparin Code: Full Artur Mcgraw MD Hospitalist, Internal Medicine Nursing staff updated with changes to care plan. Updates to disposition plan discussed with??social work and case management. Approximately??35??minutes was spent reviewing medical records including laboratory/imaging data, discussing disposition plan with care coordination team and updating nursing staff regarding changes to care plan. Greater than 50% of the time was spent performing care coordination. * Annabelle Waktins, OT - 03/29/2022 8:11 AM CDT [facility] Department of Physical Medicine & Rehabilitation Progress Note Patient: Mojgan Tabor [facility] Record Number: [id number] Date of : 1960 Age: [age] year old 03/29/22 0800 Therapy on Hold Therapy on Hold Chart Reviewed;New Order Required for Therapy Per chart review, patient under general anesthesia for PEG placement 03/25. Will require updated orders prior to resuming skilled therapies. * Jeannette Mendoza RN - 03/29/2022 5:40 AM CDT Problem: Fall Risk Goal: Fall risk and fall related injury risk are minimized (interventions related to the fall risk can be found in the flowsheet documentation) Outcome: Progressing Problem: Skin Integrity Goal: Skin integrity is maintained or improved Outcome: Progressing Problem: Nutrient: Malnutrition Goal: Total intake will meet estimated nutrient needs Outcome: Progressing Problem: Pain/Discomfort Goal: Patient exhibits reduced pain/discomfort as evidenced by pain scores Outcome: Progressing Goal: Patient uses pharmacological and non-pharmacological pain management strategies. Outcome: Progressing Goal: Patient verbalizes acceptable level of pain relief and ability to engage in desired activity. Outcome: Progressing Problem: Balance Goal: LTG - Patient will maintain balance to allow for safe mobility Outcome: Progressing Goal: LTG - Patient will demonstrate Intervention to enhance balance for safe completion of daily activities Outcome: Progressing Problem: Swallowing Goal: STG - Patient will tolerate recommended food and liquid consistencies without clinical signs and symptoms of aspiration Outcome: Progressing Goal: STG - Patient will follow recommended swallowing strategies Outcome: Progressing Problem: Grooming Goal: LTG - Patient will complete daily grooming tasks Outcome: Progressing * Artur Mcgraw MD - 03/28/2022 9:54 AM CDT [facility] Medicine Progress Note Name: Mojgan Tabor Age: [age] year old Room: 610/01 Date Admitted: 03/08/2022 Chief Complaint: Seizure disorder Subjective: Patient was seen and examined at bedside. Oriented x2 today. Denies any pain and takes a long time to respond. Pending SNF placement Objective: Vitals: 03/27/22 1139 03/28/22 0106 03/28/22 0510 03/28/22 0738 BP: 137/76 161/91 170/89 126/86 Pulse: 97 96 100 101 Resp: 16 18 20 16 Temp: 97.9 ??F (36.6 ??C) 98.5 ??F (36.9 ??C) 98.1 ??F (36.7 ??C) 98.3 ??F (36.8 ??C) SpO2: 98% 99% 99% 99% Weight: Height: Estimated body mass index is 20.34 kg/m?? as calculated from the following: Height as of this encounter: 1.829 m (6'). Weight as of this encounter: 68 kg (150 lb). Physical Exam: General: Alert, cooperative, NAD [...] in all extremities Neuro: Alert and oriented X2 Labs: Recent Labs Component Name 03/27/22 0329 03/25/22 0351 03/24/22 0258 03/18/22 0606 03/17/22 1112 03/12/22 0158 03/11/22 1059 WBC 9.3 - 11.0* - 11.2* - 11.7* HGB 11.0* - 10.9* - 10.7* - 11.1* HCT 33.2* - 33.0* - 32.7* - 32.5* NA 137 - 143 - 140 - 139 CL 104 - 107 - 106 - 104 BUN 8 - 12 - 10 - 7 CREATININE 0.47* - 0.48* - 0.53* - 0.50* PHOS - - 3.1 - - - 2.7* CALCIUM 9.4 - 9.1 - 9.0 - 8.6 PT - - - - - - 15.4* INR - - - - - - 1.2 AST - - - - 34 - 60* ALT - - - - 21 - 26 ALKPHOS - - - - 73 - 71 TBILI - - - - 0.2 - 0.4 - = values in this interval not displayed. Imaging: No results found. Epilepsy, unspecified, not intractable, without status epilepticus (CMS/HCC) POA: Yes History of CVA (cerebrovascular accident) POA: Yes Hypertension POA: Yes Sepsis without acute organ dysfunction (CMS/HCC) POA: Unknown Bacteremia POA: Unknown Pneumonia POA: Unknown Ulcer of left foot (CMS/HCC) POA: Unknown PAD (peripheral artery disease) (CMS/HCC) POA: Unknown Protein calorie malnutrition ([facility]/HCC) POA: Unknown Assessment and Plan: 62 year old male with past medical history significant for HTN, HLD, PVD,??CVA alcohol abuse, and??cervical osteoarthritis,??who??presented to [facility] from SNF??on 03/08/2022 for??worsening mentation 1. Refractory seizure disorder:?? Continue Keppra, Vimpat,??ativan switched to Clobazam and valproic acid through PEG tube neurology consulted ?? 2. Dysphagia/Severe protein calorie malnourishment:?? -unable to pass barium swallow study, speech therapy on board??and continued to fail swallo evaluation -unable to tolerate NG tube due to poor swallow it keeps ending up in his oral cavity??(mulitple attempts by different team members) -family agreeable to PEG tube placement given multiple AED regimen and poor oral intake -??PEG tube placed on 03/26, tube feeds continuing ?? 3. MSSA bacteremia: finished cefazolin (EOT 03/25) ?? 4. Hx of CVA: continue aspirin and lipitor when able to tolerate PO ?? 5. HTN: unable to swallow switch amlodipine to PRN IV Hydralazine ?? 6. HFrEF: stable, monitor Lines:??PIV Disposition: Inpatient Diet:??Tube feeds Prophylaxis:?sq heparin Code: Full Artur Mcgraw MD Hospitalist, Internal Medicine Nursing staff updated with changes to care plan. Updates to disposition plan discussed with??social work and case management. Approximately??35??minutes was spent reviewing medical records including laboratory/imaging data, discussing disposition plan with care coordination team and updating nursing staff regarding changes to care plan. Greater than 50% of the time was spent performing care coordination. * Koby Jeffries RN - 03/28/2022 3:34 AM CDT Problem: Fall Risk Goal: Fall risk and fall related injury risk are minimized (interventions related to the fall risk can be found in the flowsheet documentation) Outcome: Progressing Problem: Skin Integrity Goal: Skin integrity is maintained or improved Outcome: Progressing Problem: Nutrient: Malnutrition Goal: Total intake will meet estimated nutrient needs Outcome: Progressing Problem: Pain/Discomfort Goal: Patient exhibits reduced pain/discomfort as evidenced by pain scores Outcome: Progressing Goal: Patient uses pharmacological and non-pharmacological pain management strategies. Outcome: Progressing * Artur Mcgraw MD - 03/27/2022 9:12 AM CDT Hospital Medicine Progress Note Name: Mojgan Tabor Age: [age] year old Room: 610/01 Date Admitted: 03/08/2022 Chief Complaint: Seizure disorder Subjective: Patient was seen and examined at bedside. Oriented x1 today. Denies any pain and takes a long time to respond. Pending SNF placement Objective: Vitals: 03/26/22 1716 03/26/22 2018 03/26/22 2357 03/27/22 0312 BP: 128/81 155/92 136/82 132/78 Pulse: 103 108 99 106 Resp: 16 17 16 16 Temp: 98.3 ??F (36.8 ??C) 98.8 ??F (37.1 ??C) 98.8 ??F (37.1 ??C) 97.5 ??F (36.4 ??C) SpO2: 100% 97% 100% 100% Weight: Height: Estimated body mass index is 20.34 kg/m?? as calculated from the following: Height as of this encounter: 1.829 m (6'). Weight as of this encounter: 68 kg (150 lb). Physical Exam: General: Alert, cooperative, NAD [...] X 1 Labs: Recent Labs Component Name 03/27/22 0329 03/25/22 0351 03/24/22 0258 03/18/22 0606 03/17/22 1112 03/12/22 0158 03/11/22 1059 WBC 9.3 - 11.0* - 11.2* - 11.7* HGB 11.0* - 10.9* - 10.7* - 11.1* HCT 33.2* - 33.0* - 32.7* - 32.5* NA 137 - 143 - 140 - 139 CL 104 - 107 - 106 - 104 BUN 8 - 12 - 10 - 7 CREATININE 0.47* - 0.48* - 0.53* - 0.50* PHOS - - 3.1 - - - 2.7* CALCIUM 9.4 - 9.1 - 9.0 - 8.6 PT - - - - - - 15.4* INR - - - - - - 1.2 AST - - - - 34 - 60* ALT - - - - 21 - 26 ALKPHOS - - - - 73 - 71 TBILI - - - - 0.2 - 0.4 - = values in this interval not displayed. Imaging: No results found. Epilepsy, unspecified, not intractable, without status epilepticus (CMS/HCC) POA: Yes History of CVA (cerebrovascular accident) POA: Yes Hypertension POA: Yes Sepsis without acute organ dysfunction (CMS/HCC) POA: Unknown Bacteremia POA: Unknown Pneumonia POA: Unknown Ulcer of left foot (CMS/HCC) POA: Unknown PAD (peripheral artery disease) (CMS/HCC) POA: Unknown Protein calorie malnutrition (CMS/HCC) POA: Unknown Assessment and Plan: 62 year old male with past medical history significant for HTN, HLD, PVD,??CVA alcohol abuse, and??cervical osteoarthritis,??who??presented to [facility] from SNF??on 03/08/2022 for??worsening mentation 1. Refractory seizure disorder:?? Continue Keppra, Vimpat, ativan switched to Clobazam and valproic acid through PEG tube neurology consulted ?? 2. Dysphagia/Severe protein calorie malnourishment:?? -unable to pass barium swallow study, speech therapy on board and continued to fail swallo evaluation -unable to tolerate NG tube due to poor swallow it keeps ending up in his oral cavity??(mulitple attempts by different team members) -family agreeable to PEG tube placement given multiple AED regimen and poor oral intake - PEG tube placed on 03/26, tube feeds continuing ?? 3. MSSA bacteremia: finished cefazolin (EOT 03/25) ?? 4. Hx of CVA: continue aspirin and lipitor when able to tolerate PO ?? 5. HTN: unable to swallow switch amlodipine to PRN IV Hydralazine ?? 6. HFrEF: stable, monitor Lines:??PIV Disposition: Inpatient Diet:??Tube feeds Prophylaxis:?sq heparin Code: Full Artur Mcgraw MD Hospitalist, Internal Medicine Nursing staff updated with changes to care plan. Updates to disposition plan discussed with??social work and case management. Approximately??35??minutes was spent reviewing medical records including laboratory/imaging data, discussing disposition plan with care coordination team and updating nursing staff regarding changes to care plan. Greater than 50% of the time was spent performing care coordination. * Koby Jeffries RN - 03/27/2022 2:34 AM CDT Problem: Fall Risk Goal: Fall [...] engage in desired activity. Outcome: Progressing * Snow Ojeda RN - 03/26/2022 6:33 PM CDT Problem: Fall Risk Goal: Fall risk and fall related injury risk are minimized (interventions related to the fall risk can be found in the flowsheet documentation) Outcome: Progressing Problem: Skin Integrity Goal: Skin integrity is maintained or improved Outcome: Progressing Problem: Nutrient: Malnutrition Goal: Total intake will meet estimated nutrient needs Outcome: Progressing Problem: Pain/Discomfort Goal: Patient exhibits reduced pain/discomfort as evidenced by pain scores Outcome: Progressing Goal: Patient uses pharmacological and non-pharmacological pain management strategies. Outcome: Progressing Goal: Patient verbalizes acceptable level of pain relief and ability to engage in desired activity. Outcome: Progressing * Marilynn Alas, PT - 03/26/2022 4:06 PM CDT [facility] Department of Physical Medicine & Rehabilitation Progress Note Patient: Mojgan Tabor [facility] Record Number: [id number] Date of : 1960 Age: [age] year old 03/26/22 1600 Therapy on Hold Therapy on Hold Chart Reviewed;Surgery;New Order Required for Therapy * Cami Coughlin SLP - 03/26/2022 3:47 PM CDT [facility] Physical Medicine and Rehabilitation Swallow Treatment Patient: Mojgan Tabor [facility] Record Number: [id number] Date of : 1960 Age: [age] year old PPE: PPE worn by staff: mask - surgical;gloves Impressions: Pt presents with oropharyngeal dysphagia characterized by disorganized A-P transit, reduced tongue base retraction, reduced laryngeal elevation and impaired PES distention resulting in diffuse pharyngeal residue and silent aspiration after the swallow for all trials, evidenced on recent MBS 03/22/22. Patient presented with trials of ice chips. Educated on effortful swallow exercise. However, patient with questionable comprehension and execution. Signs of aspiration observed with PO intake. Recommend patient remain NPO. OIL FIELD PUMPER will continue to follow for dysphagia treatment. Recommendations: Diet Liquids Recommendation: NPO Diet Solids Recommendation: NPO Recommended Form of Meds: Feeding Tube Recommended Tests/Consults: Recommendations: Dysphagia Treatment Discharge Recommendations: Patient will benefit from inpatient multidisciplinary therapies Speech therapy is recommended to improve swallow function. SUBJECTIVE: Patient Goals: eat ice chips Pain Assessment: Pain Rating Score #: 0 Follow-up for pain: No follow-up for pain indicated and patient agreed to proceed with treatment OBJECTIVE: Level of Consciousness: drowsy Orientation Level: oriented to person Positioning: Upright in bed Respiratory Status: room air Swallow Trials: Ice chips: Presentation: Spoon-Assisted Oral: Increased Anterior to Posterior Transit Pharyngeal: Delayed Swallow;Cough - Delayed Assessment: Risk For Aspiration: Severe Primary Diagnostic Impression - Oral: Mild;Moderate Primary Diagnostic Impression - Pharyngeal: Severe Treatment/Education/Interventions: While performing OIL FIELD PUMPER, Patient was instructed in: oropharyngeal exercises. Patient demonstrated Questionable understanding of instructions given. INFORMED CONSENT TO TREATMENT: Plan of care is discussed but patient with questionable understanding. Short Term Goals Patient will complete oropharyngeal strengthening exercises to improve swallow function. Technical Mgr Goal (s): Patient to discharge to appropriate next level of inpatient care. Plan: dysphagia treatment Thank you, Cami GARCIA, [facility]-OIL FIELD PUMPER Speech Language Pathologist * Snow Ojeda RN - 03/26/2022 1:30 PM CDT TF started at 1330 at rate of 10ml/hr Jevity 1.5 * Ivy Mata RN - 03/26/2022 12:23 PM CDT Case Management Progress Note Anticipated level of care at discharge: [facility] - Skilled Facility Basic Needs Assessment (BNA) Score: 14 Anticipated Discharge Date: 03/29/22 Transportation at Discharge: Medicaid Provider Transportation to MD: Medicaid Provider Equipment at Home: Equipment at Home: Wheelchair-Standard Additional DME needed: None Pharmacy benefit: Yes Comments: Tx team continues to work toward safe discharge. PEG tube placed on 03/26/2022; tube feeds started. Pt to continue work with PT/OT/OIL FIELD PUMPER. SW and CM continue to monitor for future discharge. Ivy Mata RN, BSN Mask Inspector [phone] * Angelina Gould MSW - 03/26/2022 11:10 AM CDT Tuesday Summary Note Discharge Level of Care: SNF Discharge Destination: TBD Phone Number: n/a Fax Number: n/a Insurance Auth: n/a Anticipated Mode of Transportation: ambulance Contacts (Name, relationship, phone #): Adriane Hilliard (sister) [phone] Anticipated DC Date: TBD Pending Needs: pending accepting facility Comments: [facility] reviewed referral and unable to accept due to patient's low level of function.SNF referrals pending CLARITA Ochoa Phone [phone] 03/26/2022 * Artur Mcgraw MD - 03/26/2022 10:06 AM CDT [facility] Medicine Progress Note Name: Mojgan Tabor Age: [age] year old Room: 610/01 Date Admitted: 03/08/2022 Chief Complaint: Seizure disorder Subjective: Patient was seen and examined at bedside. Unable to provide reliable ROS but states he does not have any pain. Oriented x1. Tolerated PEG tube placement appropriately tomorrow. Objective: Vitals: 03/25/22 1935 03/26/22 0022 03/26/22 0309 03/26/22 0735 BP: 148/85 123/82 142/94 148/88 Pulse: 94 100 100 86 Resp: 17 18 18 16 Temp: 97.7 ??F (36.5 ??C) 99 ??F (37.2 ??C) 98.6 ??F (37 ??C) 98.6 ??F (37 ??C) SpO2: 100% 99% 100% 97% Weight: Height: Estimated body mass index is 20.34 kg/m?? as calculated from the following: Height as of this encounter: 1.829 m (6'). Weight as of this encounter: 68 kg (150 lb). Physical Exam: General: Alert, cooperative, NAD Skin: No rashes or lesions noted HEENT: NC,AT, PERRL, EOMI, No drainage or sinus tenderness, nares patent, Mucous membranes moist Neck: Supple, no JVD Heart: RRR, normal S1 and S2 Lungs: Clear to auscultation. No wheezes, rales or rhonchi Abdomen: Soft, non-tender, normal bowel sounds. No masses Extremities: No edema Pulses: 2+ and symmetric MSKL: Normal bulk and tone. Intact ROM in all extremities Neuro: Alert and oriented X 1 Labs: Recent Labs Component Name 03/26/22 0725 03/25/22 0351 03/24/22 0258 03/18/22 0606 03/17/22 1112 03/12/22 0158 03/11/22 1059 WBC 9.0 - 11.0* - 11.2* - 11.7* HGB 11.1* - 10.9* - 10.7* - 11.1* HCT 33.2* - 33.0* - 32.7* - 32.5* NA 138 - 143 - 140 - 139 CL 105 - 107 - 106 - 104 BUN 8 - 12 - 10 - 7 CREATININE 0.46* - 0.48* - 0.53* - 0.50* PHOS - - 3.1 - - - 2.7* CALCIUM 9.3 - 9.1 - 9.0 - 8.6 PT - - - - - - 15.4* INR - - - - - - 1.2 AST - - - - 34 - 60* ALT - - - - 21 - 26 ALKPHOS - - - - 73 - 71 TBILI - - - - 0.2 - 0.4 - = values in this interval not displayed. Imaging: No results found. Epilepsy, unspecified, not intractable, without status epilepticus (CMS/HCC) POA: Yes History of CVA (cerebrovascular accident) POA: Yes Hypertension POA: Yes Sepsis without acute organ dysfunction (CMS/HCC) POA: Unknown Bacteremia POA: Unknown Pneumonia POA: Unknown Ulcer of left foot (CMS/HCC) POA: Unknown PAD (peripheral artery disease) (CMS/HCC) POA: Unknown Protein calorie malnutrition (CMS/HCC) POA: Unknown Assessment and Plan: 62 year old male with past medical history significant for HTN, HLD, PVD,??CVA alcohol abuse, and??cervical osteoarthritis,??who??presented to [facility] from SNF??on 03/08/2022 for??worsening mentation 1. Refractory seizure disorder:?? Continue Keppra, Vimpat, ativan switched to Clobazam and valproic acid through PEG tube neurology consulted ?? 2. Dysphagia/Severe protein calorie malnourishment:?? -unable to pass barium swallow study, speech therapy on board and continued to fail swallo evaluation -unable to tolerate NG tube due to poor swallow it keeps ending up in his oral cavity??(mulitple attempts by different team members) -family agreeable to PEG tube placement given multiple AED regimen and poor oral intake - PEG tube placed on 03/26, tube feeds started ?? 3. MSSA bacteremia: continue cefazolin (EOT 03/25) ?? 4. Hx of CVA: continue aspirin and lipitor when able to tolerate PO ?? 5. HTN: unable to swallow switch amlodipine to PRN IV Hydralazine ?? 6. HFrEF: stable, monitor Lines:??PIV Disposition: Inpatient Diet:??Tube feeds Prophylaxis:?sq heparin Code: Full Artur Mcgraw MD Hospitalist, Internal Medicine Nursing staff updated with changes to care plan. Updates to disposition plan discussed with??social work and case management. Approximately??35??minutes was spent reviewing medical records including laboratory/imaging data, discussing disposition plan with care coordination team and updating nursing staff regarding changes to care plan. Greater than 50% of the time was spent performing care coordination. * Archie Carreno MD - 03/26/2022 9:37 AM CDT GI Consult Progress Note Subjective: Interval History: No acute events overnight. Says he feels good this morning no abdominal pain Objective: Physical Exam: BP 148/88 Pulse 86 Temp 98.6 ??F (37 ??C) (Oral) Resp 16 Ht 1.829 m (6') Wt 68 kg (150 lb) SpO2 97% Wt Readings from Last 3 Encounters: 03/08/22 68 kg (150 lb) 03/05/22 62.6 kg (138 lb) 02/16/22 59.4 kg (131 lb) Alert, awake Abdomen soft A 24 Fr [employer] Percutaneous gastrostomy tube was freely rotating in the epigastric region. Bumper is 1 cm away from the skin at the 4 cm level at the bottom of the external bumper. There was a 4x4 dressing underneath the bumper but the skin appeared intact. No surrounding erythema, discharge or swelling. Labs: Recent Labs Component Name 03/26/22 0725 03/25/22 0351 03/24/22 0258 03/23/22 0339 03/22/22 0351 03/12/22 0158 03/11/22 1059 03/08/22 1455 03/05/22 1110 02/25/21 1135 02/25/21 1134 08/13/20 1558 07/18/19 1139 04/12/15 0350 04/11/15 0622 WBC 9.0 9.4 11.0* 9.3 11.4* - 11.7* - 11.0* - - - 6.0 - 3.6 HGB 11.1* 10.6* 10.9* 10.2* 11.1* - 11.1* - 15.4 - - - 14.5 - 12.4* MCV 96.0 96.4 95.9 96.9 97.1 - 93.7 - 95.2 - - - 95.2 - 98.1* INR - - - - - - 1.2 - 1.0 - 1.1 - 1.0 - 0.9 - = values in this interval not displayed. Recent Labs Component Name 03/26/22 0725 03/25/22 0351 03/24/22 0258 NA 138 141 143 CL 105 108* 107 CO2 23 24 23 BUN 8 14 12 CREATININE 0.46* 0.45* 0.48* Recent Labs Component Name 03/17/22 1112 03/16/22 0619 03/14/22 2203 03/14/22 0458 03/12/22 0158 03/11/22 1059 AST 34 - - 35* - 60* ALT 21 - - 23 - 26 ALKPHOS 73 - - 73 - 71 TBILI 0.2 - - 0.3 - 0.4 ALB 1.8* 1.6* 1.8* 1.7* - 1.9* - = values in this interval not displayed. Imaging: FL SWALLOWING FUNCTION STUDY Result Date: 03/22/2022 IMPRESSION: Modified barium swallow fluoroscopy as described. Please see detailed report from speech pathology staff. IAshwin MD have personally reviewed and interpreted this examination/study. > Interpreting Provider: Ashwin Read MD on 03/22/2022 3:55 PM Procedures: EGD 03/26 - Esophagogastric landmarks identified. - Erosive gastropathy with no bleeding and no stigmata of recent bleeding. - Erythematous duodenopathy. 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 Difficult intubation of esophagus. - An externally removable PEG placement was successfully completed. - No specimens collected. Recommendation: ? - [facility] for [facility] care. - Please follow the post-PEG recommendations including: Nutrition consult for formula and volume, external bolster 1 cm from abdominal wall, change dressing once per day, may use PEG today for meds and water and clean site with soap and water daily and dry thoroughly. Assessment Assessment ?? POD#1 s/p placement of externally removable PEG tube ??? No immediate complications. PEG tube in adequate position and rotating without resistance. Nursing informed me the tube can flush without any issues ??? Large esophageal diverticulum. Difficult EGD intubation ? Spiculated lung nodules seen on CT 03/08/22 ? Refractory Seizure disorder ? Hx of CVA on aspirin ? MSSA bacteremia. Last positive Bcx on 03/09/22. Negative Bcx on 03/12/22. On abx through 03/25 ? Acute Normocytic Anemia. Hx of occult B12 deficiency. Likely component of blood loss anemia from left AKA. ? Malnutrition, receiving PPN. ? PVD with Left AKA this admission on 03/15 ?? Recommendations ?? Nutrition consult for formula and volume. Ok to use for tube feeds and medications ?? Maintain External plastic Bumper 1 cm from abdominal wall; avoid placing dressings under the bumper to prevent wound/ulcer/buried bumper syndrome ?? Change dressing once per day ?? clean site with soap and water daily and dry thoroughly. ?? Flushes of 15 to 30 mL of water should be performed after the administration of medications or tube feeds to decrease the risk of clogging ?? Ensure pt has steady bowel regimen to avoid chronic constipation ?? Maintain daily PPI for underlying erosive gastropathy ?? GI team will sign off Patient and above recommendations will be discussed with GI attending, Dr. Rowe, as well as the primary team. Archie Carreno MD Gastroenterology & Hepatology Fellow Division of Gastroenterology and Hepatology [facility] [employer] [facility] Associated attestation - Bebe Rowe MD - 03/26/2022 4:02 PM CDT I have seen and examined the patient with the fellow and I agree with the findings and plan of careas documented above. Bebe Rowe MD Head Operatorsupervisor fabrication and assembly at [facility] Merchandise Team Manager and Advanced Endoscopist Division of Gastroenterology & Hepatology * Ivy Mata RN - 03/26/2022 8:34 AM CDT This bond writer received message from Anival Hilliard regarding wanting to get in contact with SW on 03/25/2022. Informed SW and forwarded message. Continue to monitor. Ivy Mata RN, BSN Mask Inspector [phone] * Koby Jeffries RN - 03/26/2022 2:42 AM CDT Problem: Fall Risk Goal: Fall [...] engage in desired activity. Outcome: Progressing * Ciara Jaramillo SLP - 03/25/2022 3:24 PM CDT [facility] Department of Physical Medicine & Rehabilitation Speech Therapy Progress Note Patient: Mojgan Tabor [facility] Record Number: [id number] Date of : 1960 Age: [age] year old 03/25/22 1522 Missed Visit Missed Visit Procedure Off Floor (Pt in OR) * Snow Ojeda RN - 03/25/2022 3:00 PM CDT Problem: Fall Risk Goal: Fall risk and fall related injury risk are minimized (interventions related to the fall risk can be found in the flowsheet documentation) Outcome: Progressing Problem: Skin Integrity Goal: Skin integrity is maintained or improved Outcome: Progressing Problem: Nutrient: Malnutrition Goal: Total intake will meet estimated nutrient needs Outcome: Progressing Problem: Pain/Discomfort Goal: Patient exhibits reduced pain/discomfort as evidenced by pain scores Outcome: Progressing Goal: Patient uses pharmacological and non-pharmacological pain management strategies. Outcome: Progressing Goal: Patient verbalizes acceptable level of pain relief and ability to engage in desired activity. Outcome: Progressing * Marilynn Alas PT - 03/25/2022 10:45 AM CDT [facility] Physical Medicine and Rehabilitation Physical Therapy Progress Note Patient: Mojgan Tabor Med Record Number: [id number] Date of : 1960 Age: [age] year old PPE worn by staff: eye protection;gloves;gown - disposable;mask - procedural Tech: none; co-tx with OT Discharge Recommendation: Patient will benefit from multidisciplinary inpatient therapies. SUBJECTIVE: Subjective: I'll try Pain Assessment: Pain Rating Score #: 0 PRECAUTIONS: Weight Bearing Status: (NWB L LE (AKA)) Activity Level: Up ad daniela OBJECTIVE: At start of therapy session, patient found in bed and with bed alarm on General Appearance: thin, older male supine in bed; L AKA with kain bandage in place LDAs: IV's: Peripheral line Vitals: (*Assess the 3 levels of oxygen saturations both for room air and 02 unless rest on room air is 88% or less). Rest BP: 139/89 HR: 110 Sp02 Sp02 99% Room Air L O2 RA Ex/Gait/Activity Without 02 BP: HR: Sp02 Room Air Ex/Gait/Activity With 02 BP: HR: Sp02 L O2 Post Activity BP: HR: 115 Sp02 Sp02 98% L O2 Room Air RA Observations: Pt with no c/o lightheadedness, dizziness or SOB Mental Status/Cognition: Level of Consciousness-Adult: Alert Orientation Level: Oriented to Place;Disoriented to Place;Disoriented to Time Cognition: Follows Commands-inconsistent;Processing-delayed;Safety awareness- decreased; follows ~25% 1 step commands Attention Span: Difficulty attending to directions Mobility: A gait belt and non-slip socks were used for all out of bed activity this date. Bed Mobility: Supine to Sit: Moderate Assistance;Maximum Assistance;X 2 with HOB in semi- fowlers position Sit to Supine: Moderate Assistance;Maximum Assistance;X 2 Balance: Balance Scales/Tests Used: Sitting: Static/Dynamic Sitting - Static: Poor Sitting - Dynamic: Poor Sat EOB ~12 min with mod assist to maintain ACTIVITY TOLERANCE: Patient's activity tolerance: fair TREATMENT/INTERVENTIONS: ROM R LE A-AAROM sitting EOB, bed mobility training, transfer training, balance activities: weight shifting down to R elbow with return to sitting, anterior weight shift, monitoring of vitals and cognitive stimulation Modified Milam: Current Modified Milam Score: 5 EDUCATION: While performing PT, Patient was instructed in:functional mobility training, safety awareness/fall precautions Presented to patient who demonstrates Questionable understanding of instructions given. ASSESSMENT: Patient would benefit from additional Physical Therapy sessions to achieve the following functionalgoals to enhance independence. Short Term Goals: Goal Formation?With patient Patient will perform bed mobility??with maximal assist Patient will transfer sit to/from stand??with maximal assist Patient will transfer bed to/from chair??with maximal assist Technical Mgr Goal(s): Patient to discharge to appropriate next level of inpatient care. INFORMED CONSENT TO TREATMENT: Plan of care is discussed but patient with questionable understanding. Equipment Issued: none Plan: Patient continues to benefit from skilled therapy services., Continue with goals as established. If patient is discharged from the facility, this note serves as a discharge summary if further physical therapy visits did not occur. Refer to filed flowsheet for further details. Following therapy session, patient left in bed, with bed alarm on , with call light within reach, with RNSnow aware. * Aylin Naylor OT - 03/25/2022 10:45 AM CDT [facility] Physical Medicine and Rehabilitation Occupational Therapy Progress Note Patient: Mojgan Tabor Med Record Number: [id number] Date of : 1960 Age: [age] year old Co-treat with PT PPE worn by staff: gloves;gown - disposable;mask - procedural Discharge Recommendation: Patient will benefit from multidisciplinary inpatient therapies. Nurse and Physical Therapy contacted regarding patient status and/or discharge plan. Activity Level: up ad daniela PRECAUTIONS: SUBJECTIVE: Subjective: I did ok? Pain Assessment: Patient with no c/o pain Follow-up for pain: No follow-up for pain indicated and patient agreed to proceed with treatment OBJECTIVE: At start of therapy session, patient found in bed and with bed alarm on General Appearance: 62 y/o male, supine in NAD LDA: IV's: Peripheral line and Catheter Vitals: (*Assess the 3 levels of oxygen saturations both for room air and 02 unless rest on room air is 88% or less). Rest BP: 139/89 HR: 110 Sp02 ?? 99% Room Air ? Post Activity BP: ?? HR: 115 Sp02 ?? 98% Room Air Observations: Pt with no c/o lightheadedness, dizziness or SOB Mental Status/Cognition: Level of Consciousness-Adult: Alert Orientation Level: Oriented to Person;Disoriented to Place;Disoriented to Time Cognition: Processing-delayed Attention Span: Difficulty attending to directions Following Commands: Follows one step commands with repetition/cues (follows 25%) Safety Judgement: Decreased awareness of need for safety Awareness of Errors: Decreased awareness of deficits;Assistance required to identify errors made;Assistance required to correct errors made Mobility: a gait belt and non-slip socks were used for all out of bed activity this date. Bed Mobility: Supine to Sit: Moderate Assistance;Maximum Assistance;X 2 with HOB in semi- fowlers position Sit to Supine: Moderate Assistance;Maximum Assistance;X 2 Balance: Balance Scales/Tests Used: Sitting: Static/Dynamic Sitting - Static: Poor Sitting - Dynamic: Poor Comments: Patient with posterior lean, tolerates sitting EOB ~12 minutes with moderate assist to maintain Activities of Daily Living: Oral Facial Hygiene: Minimal Assistance (to wash face seated EOB) Splint Issued/Checked: none ACTIVITY TOLERANCE: Patient's activity tolerance: fair. Modified Florentino: Current Modified Milam Score: 5 TREATMENT/INTERVENTIONS: ADL training Functional transfer training Bed mobility Safety awareness EDUCATION: While performing OT, Patient was instructed in:functional mobility training, self-care training, safety awareness/fall precautions , discharge planning Presented to patient who demonstrates Questionable understanding of instructions given. INFORMED CONSENT TO TREATMENT: Plan of care including recommended therapy, goals and frequency, discussed with patient who understands and agrees to proceed. ASSESSMENT: Patient continues to benefit from skilled Occupational Therapy to achieve the following functional goals. Short Term Goals: Goal Formation With patient Cognition: 1 step commands and 100% of the time Patient will perform grooming at edge of bed and with minimal assist Patient will perform supine to/from sit with minimal assist Pt will demonstrate fair sitting balance to complete ADL at EOB with Min assist Technical Mgr Goal(s): Patient to discharge to appropriate next level of inpatient care Plan: Continue with goals as established. If patient is discharged from the facility, this note serves as a discharge summary if further occupational therapy visits did not occur. Refer to filed flowsheet for further details. Following therapy session, patient left in bed, with bed alarm on , with call light within reach, with RN, Snow aware. * Angelina Gould MSW - 03/25/2022 10:30 AM CDT SW continues to follow. SW had family meeting with patient's sisters Jaleesa and Adriane and business unit manager Ivy. SW and CM discussed with sisters patient's current status re: DC plan, patient has been denied at [facility] and Adriane does not want him to return to [place]. SW discussed that PT/OT is planning to see him today and SW can send those therapy notes to [facility] rehab for them to review, but that if he gets denied he will need SNF. Sisters verbalized understanding, but perseverated multiple times on the denial by [facility], patient's previous baseline/functional status while living in the community, and current medical status. ASHWIN and CM attempted to answer their questions re: dispo planning. Si israel did agree to SNF referrals and prefer the following facilities: [facility] in [place], [facility], [facility] in [place], and [facility] in [place]. Referrals faxed via [employer]. ASHWIN also notified [place] of referral. CLARITA Guzman 03/25/2022 [phone] * Artur Mcgraw MD - 03/25/2022 8:50 AM CDT [facility] Medicine Progress Note Name: Mojgan Tabor Age: [age] year old Room: 610/01 Date Admitted: 03/08/2022 Chief Complaint: Seizure disorder Subjective: Patient was seen and examined at bedside. Unable to provide reliable ROS but states he does not have any pain. Oriented x2. Failed swallow evaluation yesterday. Objective: Vitals: 03/25/22 0019 03/25/22 0419 03/25/22 0730 03/25/22 0834 BP: 153/87 149/92 173/86 155/89 Pulse: 96 96 94 (!) 114 Resp: 18 17 16 Temp: 99.8 ??F (37.7 ??C) 98.7 ??F (37.1 ??C) 98.6 ??F (37 ??C) SpO2: 100% 100% 95% 100% Weight: Height: Estimated body mass index is 20.34 kg/m?? as calculated from the following: Height as of this encounter: 1.829 m (6'). Weight as of this encounter: 68 kg (150 lb). Physical Exam: General: Alert, cooperative, NAD Skin: No rashes or lesions noted HEENT: NC,AT, PERRL, EOMI, No drainage or sinus tenderness, nares patent, Mucous membranes moist Neck: Supple, no JVD Heart: RRR, normal S1 and S2 Lungs: Clear to auscultation. No wheezes, rales or rhonchi Abdomen: Soft, non-tender, normal bowel sounds. No masses Extremities: No edema Pulses: 2+ and symmetric MSKL: Normal bulk and tone. Intact ROM in all extremities Neuro: Alert and oriented X 3 Labs: Recent Labs Component Name 03/25/22 0351 03/24/22 0258 03/18/22 0606 03/17/22 1112 03/12/22 0158 03/11/22 1059 WBC 9.4 11.0* - 11.2* - 11.7* HGB 10.6* 10.9* - 10.7* - 11.1* HCT 32.0* 33.0* - 32.7* - 32.5* NA 141 143 - 140 - 139 CL 108* 107 - 106 - 104 BUN 14 12 - 10 - 7 CREATININE 0.45* 0.48* - 0.53* - 0.50* PHOS - 3.1 - - - 2.7* CALCIUM 8.9 9.1 - 9.0 - 8.6 PT - - - - - 15.4* INR - - - - - 1.2 AST - - - 34 - 60* ALT - - - 21 - 26 ALKPHOS - - - 73 - 71 TBILI - - - 0.2 - 0.4 - = values in this interval not displayed. Imaging: FL SWALLOWING FUNCTION STUDY Result Date: 03/22/2022 IMPRESSION: Modified barium swallow fluoroscopy as described. Please see detailed report from speech pathology staff. Ashwin Thomason MD have personally reviewed and interpreted this examination/study. > Interpreting Provider: Ashwin Read MD on 03/22/2022 3:55 PM Epilepsy, unspecified, not intractable, without status epilepticus (CMS/HCC) POA: Yes History of CVA (cerebrovascular accident) POA: Yes Hypertension POA: Yes Sepsis without acute organ dysfunction (CMS/HCC) POA: Unknown Bacteremia POA: Unknown Pneumonia POA: Unknown Ulcer of left foot (CMS/HCC) POA: Unknown PAD (peripheral artery disease) (CMS/HCC) POA: Unknown Protein calorie malnutrition (CMS/HCC) POA: Unknown Assessment and Plan: 62 year old male with past medical history significant for HTN, HLD, PVD,??CVA alcohol abuse, and??cervical osteoarthritis,??who??presented to [facility] from SNF??on 03/08/2022 for??worsening mentation 1. Refractory seizure disorder:?? Continue IV Keppra, Vimpat, Ativan, Valproic acid switched to IV until PEG tube placement neurology consulted ?? 2. Dysphagia/Severe protein calorie malnourishment:?? -unable to pass barium swallow study, speech therapy on board -unable to tolerate NG tube due to poor swallow it keeps ending up in his oral cavity (mulitple attempts by different team members) -continue PPN -PEG tube plan pending GI ?? 3. MSSA bacteremia: continue cefazolin (EOT 03/25) ?? 4. Hx of CVA: continue aspirin and lipitor when able to tolerate PO ?? 5. HTN: unable to swallow switch amlodipine to PRN IV Hydralazine ?? 6. HFrEF: stable, monitor Lines:??PIV Disposition: Inpatient Diet:??NPO due to severe dysphagia ( continue PPN until peg tube) Prophylaxis:?sq heparin Code: Full Artur Mcgraw MD Hospitalist, Internal Medicine Nursing staff updated with changes to care plan. Updates to disposition plan discussed with??social work and case management. Approximately??35??minutes was spent reviewing medical records including laboratory/imaging data, discussing disposition plan with care coordination team and updating nursing staff regarding changes to care plan. Greater than 50% of the time was spent performing care coordination. * Mariajose Estrada RN - 03/25/2022 4:08 AM CDT Problem: Fall Risk Goal: Fall [...] engage in desired activity. Outcome: Progressing * Dina Thomas SLP - 03/24/2022 1:30 PM CDT [facility] Physical Medicine and Rehabilitation Swallow Treatment Patient: Mojgan Tabor [facility] Record Number: [id number] Date of : 1960 Age: [age] year old PPE: PPE worn by staff: gloves;gown - disposable;mask - N95;eye protection Impressions: Pt somnolent but agreeable to ice chips for effortful swallows. Pt w/ questionable comprehension for pharyngeal strengthening ex. Pt continues to struggle to elicit a volitional swallow on command. No s/s aspiration appreciated for this evaluation, however pt has documentation of silent aspiration. Would recommend pt remain NPO. Recommendations: Diet Solids Recommendation: NPO Recommended Form of Meds: NPO Recommended Tests/Consults: None indicated, pt participated in a Modified Barium Swallow on 03/22 Discharge Recommendations: Speech therapy is recommended to improve swallow function. SUBJECTIVE: Patient Goals: None stated Pain Assessment: Pain Rating Score #: 0 Follow-up for pain: No follow-up for pain indicated and patient agreed to proceed with treatment OBJECTIVE: Level of Consciousness: drowsy Positioning: Upright in bed Respiratory Status: room air Swallow Trials: Ice chips: Presentation: Spoon-Assisted Oral: Increased Anterior to Posterior Transit Pharyngeal: No s/s aspiration, pt is at risk for silent aspiration Assessment: Risk For Aspiration: Severe Primary Diagnostic Impression - Oral: Mild;Moderate Primary Diagnostic Impression - Pharyngeal: Severe (Per recent MBS results) Treatment/Education/Interventions: While performing OIL FIELD PUMPER, Patient was instructed in: recommendations for NPO status given patient's elevated aspiration risk. This therapist also attempted to instruct pt on the use of effortful swallowsfor pharyngeal strengthening. Patient demonstrated Questionable understanding of instructions given. INFORMED CONSENT TO TREATMENT: Plan of care is discussed but patient with questionable understanding. Short Term Goals Patient will tolerate diet advance to PO intake without risk for aspiration. Intermediate Goal (s): Patient to discharge to appropriate next level of inpatient care. Plan: Continued ST for pharyngeal strengthening ex, ongoing assessment * Archie Carreno MD - 03/24/2022 11:56 AM CDT Brief GI Note Evaluated at bedside, pt sleeping and not responding to verbal stimuli but breathing comfortably Abdomen soft without tenderness or guarding Tentative PEG tube placement today afternoon Further Post-PEG tube recs per endoscopy team Archie Carreno MD Gastroenterology and Hepatology Fellow [facility] * Angelina Gould MSW - 03/24/2022 11:30 AM CDT ASHWIN following for DC planning. ASHWIN spoke with sister Adriane Hilliard via phone re: DC plan. ASHWIN explained to Adriane that [facility] denied patient due to him not being able to tolerate 3 hours of therapy. Adriane stated that she did not think this was fair to patient. ASHWIN explained to sister that rehab has very strict criteria for patients qualifying and that each patient is screened using the same criteria. Adriane asked if there were other rehabs that may consider pt, ASHWIN explained that [facility] may be able to evaluate for admission, but their criteria would be the same as [facility]. Adriane agreed for ASHWIN to send referral to [facility], but not to tell them what the other rehab said re: reason for denial. ASHWIN asked [facility] if patient is not a rehab candidate, if she was still planning on him returning to [facility]. Adriane stated to ASHWIN that he couldn't return because I have a lawsuit against them. ASHWIN asked Adriane if she had any other facilities in mind that ASHWIN could send referrals to and Adriane stated I thought you were supposed to figure out where he could go. ASHWIN explained that ASHWIN can provide Adriane with a list of SNF facilities, and that ASHWIN was about to go to a meeting but would meet Adriane in patient's room afterwards. SW went to patient's room at 1245 but no family members were present, RN informed ASHWIN that they had just left. ASHWIN called Adriane's phone and apologized for missing her. ASHWIN offered to come up to patient's room tomorrow when Adriane is here to provide list. Adriane stated to ASHWIN it seems like you're too busy with other things to be his social media manager . ASHWIN explained that role of ASHWIN while patient is hospitalized is to facilitate a safe DC plan, and that ASHWIN initially sent referrals to [facility] and [facility], but that since that time patient has not been medically stable for DC. Adriane verbalized understanding. CLARITA Guzman 03/24/2022 [id number] * Pao Balderrama RN - 03/24/2022 10:17 AM CDT Problem: Nutrient: Malnutrition Goal: Total intake will meet estimated nutrient needs Outcome: Not Progressing Problem: Fall Risk Goal: Fall risk and fall related injury risk are minimized (interventions related to the fall risk can be found in the flowsheet documentation) Outcome: Progressing * Artur Mcgraw MD - 03/24/2022 9:25 AM CDT Hospital Medicine Progress Note Name: Mojgan Tabor Age: [age] year old Room: 610/01 Date Admitted: 03/08/2022 Chief Complaint: Seziure disorder Subjective: Patient was seen and examined at bedside. Unable to provide any ROS. More alert than yesterday. Asking to be transported to the toilet to have a bowel movement Objective: Vitals: 03/23/22 2202 03/23/22 2340 03/24/22 0354 03/24/22 0755 BP: 155/94 139/90 143/94 158/98 Pulse: 102 96 100 96 Resp: 17 17 15 Temp: 99.5 ??F (37.5 ??C) 97.5 ??F (36.4 ??C) 97.8 ??F (36.6 ??C) SpO2: 97% 100% 95% Weight: Height: Estimated body mass index is 20.34 kg/m?? as calculated from the following: Height as of this encounter: 1.829 m (6'). Weight as of this encounter: 68 kg (150 lb). Physical Exam: General: Alert, appears chronically ill Skin: No rashes or lesions noted HEENT: NC,AT, PERRL, EOMI, No drainage or sinus tenderness, nares patent, Mucous membranes moist Neck: Supple, no JVD Heart: RRR, normal S1 and S2 Lungs: Clear to auscultation. No wheezes, rales or rhonchi Abdomen: Soft, non-tender, normal bowel sounds. No masses Extremities: No edema Pulses: 2+ and symmetric MSKL: Normal bulk and tone. Intact ROM in all extremities Neuro: Alert, unable to follow command Labs: Recent Labs Component Name 03/24/22 0258 03/18/22 0606 03/17/22 1112 03/12/22 0158 03/11/22 1059 WBC 11.0* - 11.2* - 11.7* HGB 10.9* - 10.7* - 11.1* HCT 33.0* - 32.7* - 32.5* NA 143 - 140 - 139 CL 107 - 106 - 104 BUN 12 - 10 - 7 CREATININE 0.48* - 0.53* - 0.50* PHOS 3.1 - - - 2.7* CALCIUM 9.1 - 9.0 - 8.6 PT - - - - 15.4* INR - - - - 1.2 AST - - 34 - 60* ALT - - - ALKPHOS - - 73 - 71 TBILI - - 0.2 - 0.4 - = values in this interval not displayed. Imaging: FL SWALLOWING FUNCTION STUDY Result Date: 03/22/2022 IMPRESSION: Modified barium swallow fluoroscopy as described. Please see detailed report from speech pathology staff. Ashwin Thomason MD have personally reviewed and interpreted this examination/study. > Interpreting Provider: Ashwin Read MD on 03/22/2022 3:55 PM Epilepsy, unspecified, not intractable, without status epilepticus (CMS/HCC) POA: Yes History of CVA (cerebrovascular accident) POA: Yes Hypertension POA: Yes Sepsis without acute organ dysfunction (CMS/HCC) POA: Unknown Bacteremia POA: Unknown Pneumonia POA: Unknown Ulcer of left foot (CMS/HCC) POA: Unknown PAD (peripheral artery disease) (CMS/HCC) POA: Unknown Protein calorie malnutrition (CMS/HCC) POA: Unknown Assessment and Plan: 62 year old male with past medical history significant for HTN, HLD, PVD,??CVA alcohol abuse, and??cervical osteoarthritis,??who??[facility]ed [facility] SNF[facility]on 03/08/2022 for??worsening mentation 1. Refractory seizure disorder: Continue IV Keppra, Vimpat, Ativan, Valproic acid switched to IV neurology consulted ?? 2. Dysphagia/Severe protein calorie malnourishment: -unable to pass barium swallow study, speech therapy on board -unable to tolerate NG tube due to poor swallow it keeps ending up in his oral cavity (mulitple attempts by different team members) -continue PPN -PEG tube plan pending GI ?? 3. MSSA bacteremia: continue cefazolin (EOT 03/25) ?? 4. Hx of CVA: continue aspirin and lipitor when able to tolerate PO ?? 5. HTN: unable to swallow switch amlodipine to PRN IV Hydralazine ?? 6. HFrEF: stable, monitor Lines: PIV Disposition: Inpatient Diet: NPO due to severe dysphagia ( continue PPN until peg tube) Prophylaxis: sq heparin Code: Full Artur Mcgraw MD Hospitalist, Internal Medicine Nursing staff updated with changes to care plan. Updates to disposition plan discussed with social work and case management. Approximately 40 minutes was spent reviewing medical records including laboratory/imaging data, discussing disposition plan with care coordination team and updating nursing staff regarding changes tocare plan. Greater than 50% of the time was spent performing care coordination. * Mariajose Estrada RN - 03/24/2022 4:02 AM CDT Problem: Fall Risk Goal: Fall risk and fall related injury risk are minimized (interventions related to the fall risk can be found in the flowsheet documentation) Outcome: Progressing Problem: Skin Integrity Goal: Skin integrity is maintained or improved Outcome: Progressing Problem: Nutrient: Malnutrition Goal: Total intake will meet estimated nutrient needs Outcome: Progressing Problem: Pain/Discomfort Goal: Patient exhibits reduced pain/discomfort as evidenced by pain scores Outcome: Progressing Goal: Patient uses pharmacological and non-pharmacological pain management strategies. Outcome: Progressing Goal: Patient verbalizes acceptable level of pain relief and ability to engage in desired activity. Outcome: Progressing * Artur Mcgraw MD - 03/23/2022 1:57 PM CDT [facility] Medicine Progress Note Name: Mojgan Tabor Age: [age] year old Room: 610/01 Date Admitted: 03/08/2022 Chief Complaint: Seziure disorder Subjective: Patient was seen and examined at bedside. Unable to provide any ROS and appears to be sleeping. POA informed about inability to tolerated NG tube and severe dysphagia. They would like to proceed with PEG tube placement. Objective: Vitals: 03/22/22 2019 03/23/22 0000 03/23/22 0753 03/23/22 1120 BP: 127/83 130/88 145/90 156/83 Pulse: 97 98 87 87 Resp: 18 18 16 19 Temp: 98.6 ??F (37 ??C) 98.7 ??F (37.1 ??C) 98.6 ??F (37 ??C) 98 ??F (36.7 ??C) SpO2: 99% 98% 93% 100% Weight: Height: Estimated body mass index is 20.34 kg/m?? as calculated from the following: Height as of this encounter: 1.829 m (6'). Weight as of this encounter: 68 kg (150 lb). Physical Exam: General: eyes closed, appears chronically ill Skin: No rashes or lesions noted HEENT: NC,AT, PERRL, EOMI, No drainage or sinus tenderness Neck: Supple, no JVD Heart: RRR, normal S1 and S2 Lungs: Clear to auscultation. No wheezes, rales or rhonchi Abdomen: Soft, non-tender, normal bowel sounds Extremities: No edema Pulses: 2+ and symmetric MSKL: Normal bulk and tone. Intact ROM in all extremities Neuro: able to open eyes, does not follow commands, Labs: Recent Labs Component Name 03/23/22 0339 03/18/22 0606 03/17/22 1112 03/16/22 0619 03/12/22 0158 03/11/22 1059 WBC 9.3 - 11.2* 8.9 - 11.7* HGB 10.2* - 10.7* 10.0* - 11.1* HCT 31.2* - 32.7* 31.0* - 32.5* NA 140 - 140 142 - 139 CL 106 - 106 107 - 104 BUN 9 - 10 12 - 7 CREATININE 0.51* - 0.53* 0.69* - 0.50* PHOS - - - 3.2 - 2.7* CALCIUM 8.9 - 9.0 8.5 - 8.6 PT - - - - - 15.4* INR - - - - - 1.2 AST - - 34 - - 60* ALT - - 21 - - 26 ALKPHOS - - 73 - - 71 TBILI - - 0.2 - - 0.4 - = values in this interval not displayed. Imaging: FL SWALLOWING FUNCTION STUDY Result Date: 03/22/2022 IMPRESSION: Modified barium swallow fluoroscopy as described. Please see detailed report from speech pathology staff. Ashwin Thomason MD have personally reviewed and interpreted this examination/study. > Interpreting Provider: Ashwin Read MD on 03/22/2022 3:55 PM Epilepsy, unspecified, not intractable, without status epilepticus (CMS/HCC) POA: Yes History of CVA (cerebrovascular accident) POA: Yes Hypertension POA: Yes Sepsis without acute organ dysfunction (CMS/HCC) POA: Unknown Bacteremia POA: Unknown Pneumonia POA: Unknown Ulcer of left foot (CMS/HCC) POA: Unknown PAD (peripheral artery disease) (CMS/HCC) POA: Unknown Protein calorie malnutrition (CMS/HCC) POA: Unknown Assessment and Plan: 62 year old male with past medical history significant for PMH??of??HTN, HLD, PVD,??CVA alcohol abuse, and??cervical osteoarthritis,??who??presented [facility] from SNF[facility]on 03/08/2022 for??worsening mentation 1. Refractory seizure disorder: Continue IV Keppra, Vimpat, Ativan, will need IV formulation of valproic acid vs alternative agent given unable to tolerate PO or NG tube, neurology consulted 2. Dysphagia/Severe protein calorie malnourishment: -unable to pass barium swallow study, speech therapy on board -unable to tolerate NG tube due to poor swallow it keeps ending up in his oral cavity, (appreciate assistance of rapid response team to assist in placing NG tube) -continue PPN -will consult GI for PEG tube 3. MSSA bacteremia: continue cefazolin (EOT 03/25) 4. Hx of CVA: continue aspirin and lipitor when able to tolerate PO 5. HTN: unable to swallow switch amlodipine to PRN IV Hydralazine 6. HFrEF: stable, monitor Lines: PIV Disposition: Inpatient Diet: NPO due to severe dysphagia Prophylaxis: sq heparin Code: Full Artur Mcgraw MD Hospitalist, Internal Medicine Nursing staff updated with changes to care plan. Updates to disposition plan discussed with social work and case management. Approximately 40 minutes was spent reviewing medical records including laboratory/imaging data, discussing disposition plan with care coordination team and updating nursing staff regarding changes tocare plan. Greater than 50% of the time was spent performing care coordination. * Angelina Gould MSW - 03/23/2022 1:25 PM CDT SW continues to follow. Clinical updates sent to [facility]. Unsure of DC date at this time. CLARITA Guzman 03/23/2022 [id number] * Pao Balderrama RN - 03/23/2022 11:25 AM CDT Problem: Fall Risk Goal: Fall risk and fall related injury risk are minimized (interventions related to the fall risk can be found in the flowsheet documentation) Outcome: Progressing Problem: Skin Integrity Goal: Skin integrity is maintained or improved Outcome: Progressing Problem: Nutrient: Malnutrition Goal: Total intake will meet estimated nutrient needs Outcome: Progressing Problem: Pain/Discomfort Goal: Patient exhibits reduced pain/discomfort as evidenced by pain scores Outcome: Progressing Goal: Patient uses pharmacological and non-pharmacological pain management strategies. Outcome: Progressing Problem: Swallowing Goal: STG - Patient will tolerate recommended food and liquid consistencies without clinical signs and symptoms of aspiration Outcome: Progressing * Dina Thomas SLP - 03/23/2022 10:28 AM CDT [facility] Physical Medicine and Rehabilitation Swallow Treatment Patient: Mojgan Tabor Med Record Number: [id number] Date of : 1960 Age: [age] year old PPE: PPE worn by staff: gloves;gown - disposable;mask - N95;eye protection Impressions: Pt agreeable to trials of ice chips for effortful swallows. Pt w/ questionable comprehension for pharyngeal strengthening ex. Pt continues to struggle to elicit a volitional swallow on command. Wet cough eventually appreciated after multiple trials. Would recommend pt remain NPO. Recommendations: Diet Solids Recommendation: NPO Recommended Form of Meds: NPO Recommended Tests/Consults: None indicated, pt participated in a Modified Barium Swallow on 03/22 Discharge Recommendations: Speech therapy is recommended to improve swallow function. SUBJECTIVE: Patient Goals: None stated Pain Assessment: Pain Rating Score #: 0 Follow-up for pain: No follow-up for pain indicated and patient agreed to proceed with treatment OBJECTIVE: Level of Consciousness: alert, minimally verbal w/ occasional unintelligible utterances Positioning: Upright in bed Respiratory Status: room air Swallow Trials: Ice chips: Presentation: Spoon-Assisted Oral: Increased Anterior to Posterior Transit;Disorganized AP transit Pharyngeal: Cough - Delayed after multiple trials, pt is at risk for silent aspiration. Pt was unable to elicit a repeat swallow, even after attempts at pressure on the tongue dorsum w/ a dry spoon. Assessment: Risk For Aspiration: Severe Primary Diagnostic Impression - Oral: Mild;Moderate Primary Diagnostic Impression - Pharyngeal: Severe (Per recent MBS results) Treatment/Education/Interventions: While performing OIL FIELD PUMPER, Patient was instructed in: recommendations for NPO status given patient's elevated aspiration risk. This therapist also attempted to instruct pt on the use of effortful swallowsfor pharyngeal strengthening. Patient demonstrated Questionable understanding of instructions given. INFORMED CONSENT TO TREATMENT: Plan of care is discussed but patient with questionable understanding. Short Term Goals Patient will tolerate diet advance to PO intake without risk for aspiration. Technical Mgr Goal (s): Patient to discharge to appropriate next level of inpatient care. Plan: Continued ST for pharyngeal strengthening ex, ongoing assessment * Mariajose Estrada RN - 03/23/2022 4:21 AM CDT Problem: Nutrient: Malnutrition Goal: Total intake will meet estimated nutrient needs Outcome: Not Progressing Problem: Fall Risk Goal: [...] engage in desired activity. Outcome: Progressing * Rachel Alvarez RN - 03/22/2022 5:59 PM CDT Problem: Swallowing Goal: STG - Patient will tolerate recommended food and liquid consistencies without clinical signs and symptoms of aspiration Outcome: Progressing Goal: STG - Patient will follow recommended swallowing strategies Outcome: Progressing Problem: Fall Risk Goal: Fall risk and fall related injury risk are minimized (interventions related to the fall risk can be found in the flowsheet documentation) Outcome: Progressing Problem: Skin Integrity Goal: Skin integrity is maintained or improved Outcome: Progressing Problem: Nutrient: Malnutrition Goal: Total intake will meet estimated nutrient needs Outcome: Progressing Problem: Pain/Discomfort Goal: Patient exhibits reduced pain/discomfort as evidenced by pain scores Outcome: Progressing Goal: Patient uses pharmacological and non-pharmacological pain management strategies. Outcome: Progressing Goal: Patient verbalizes acceptable level of pain relief and ability to engage in desired activity. Outcome: Progressing * Dina Thomas SLP - 03/22/2022 2:00 PM CDT [facility] Modified Barium Swallow Patient: Mojgan Tabor [facility] Record Number [id number] Date of : 1960 Age: [age] year old PPE: N95, eye protection, gloves Referring Physician: Petra Fuentes MD Diagnosis: Patient Active Problem List: Seizure (CMS/HCC) [...] Sepsis without acute organ dysfunction (CMS/HCC) Bacteremia Pneumonia Ulcer of left foot (CMS/HCC) PAD (peripheral artery disease) (CMS/HCC) Protein calorie malnutrition (CMS/HCC) Past Medical History: Diagnosis Date ??? CVA (cerebral vascular accident) (CMS/HCC) ??? HTN (hypertension) ??? Seizure (CMS/HCC) Impressions Pt presents with oropharyngeal dysphagia characterized by disorganized A-P transit, reduced tongue base retraction, reduced laryngeal elevation and impaired PES distention resulting in diffuse pharyngeal residue and silent aspiration after the swallow for all trials. Swallow Recommendations NPO Recommended tests/consults: None indicated Discharge Recommendation Patient will benefit from multidisciplinary inpatient therapies. Speech therapy is recommended to improve swallow function. Subjective Pain: Patient has 0/10 pain Objective Breathing Status: Room air Vocal Quality: Decreased intensity Dentition: fair Cognitive/Mental Status Patient appeared somnolent but roused easily to verbal cues. He did not consistently follow commands. Procedure This procedure was performed in conjunction with radiology using lateral views. The patient was given thin liquid, moderately thick liquid and pudding consistency. Oral Stage ??? Labial Seal: Interlabial escape ??? Bolus Prep/Mastication: did not trial solid due to safety issue ??? Transit: Increased oral transit time, disorganized AP transit ??? Tongue Base Retraction: Reduced Pharyngeal Stage ??? Response Triggering: bolus head in valleculae for thin and purees. Bolus reaches the pyriforms for trials on moderately thick liquids. ??? Epiglottic Function: no inversion ??? Laryngeal Elevation: Reduced ??? Laryngeal Vestibule Closure: Incomplete ??? Stasis/Residue: Moderate to severe residual on the tongue base, vallecula, pyriform sinuses andposterior pharyngeal wall, increasing in severity w/ more viscous consistencies. ??? Laryngeal Penetration/Aspiration: Thin liquids: Aspiration After swallow Amount: Mild PAS Score: 8. Material enters the airway, passes below the vocal folds, and no effort is made to eject. Honey/Moderately thick liquids: Aspiration After swallow Amount: Gross PAS Score: 8. Material enters the airway, passes below the vocal folds, and no effort is made to eject. Purees: Aspiration After swallow Amount: Gross PAS Score: 8. Material enters the airway, passes below the vocal folds, and no effort is made to eject. Solids: Did not trial d/t safety issue ??? Laryngeal sensitivity: Absent Modifications: Effortful swallow and Repeat swallows; Pressure on tongue dorsum w/ dry spoon Modifications were: Unsuccessful, Pt did not respond to verbal cues to initiate a repeat swallow. Pressure on the tongue dorsum was also ineffective at eliciting a swallow. Esophageal Stage ??? Cricopharyngeal Function: minimal distension/minimal duration with marked obstruction of flow ??? Esophageal Clearance: esophageal retention noted in the upper esophagus Overall Swallowing Function: Severe dysphagia Treatment Recommendations Oral-motor exercise, Tongue base exercise and Laryngeal elevation exercise Education Patient and Physician instructed in recommedations and indicated understanding. Informed Consent to Treatment Plan of care including recommended therapy, goals and frequency, as well as potential risks and benefits of treatment/assessment explained to the patient who understands and agrees to proceed. Goals Short Term Goal(s): Patient to demonstrate gains in swallow function as demonstrated by the ability to tolerate diet upgrade. Patient to demonstrate the ability to complete oral motor and/or pharyngeal exercises 3-5 times perweek to improve swallow function. Technical Mgr Goal(s): Patient to discharge to appropriate next level of inpatient care. If patient is discharged from the facility, this note serves as a discharge note if further speech therapy visits did not occur. Speech-Language Pathologist * Iggy Rodriguez - 03/22/2022 1:15 PM CDT [facility] is denying for ARU placement, at this time, due to inability to tolerate 3 hrs of daily therapy. [facility] is [facility] and able to return once medically appropriate. CLARITA Carsno [phone] * Dina Thomas, JOSIAS - 03/22/2022 9:13 AM CDT [facility] Physical Medicine and Rehabilitation Swallow Treatment Patient: Mojgan Tabor Med Record Number: [id number] Date of : 1960 Age: [age] year old PPE: PPE worn by staff: gloves;gown - disposable;mask - N95;eye protection Impressions: Pt alert and eager for breakfast of purees and thin liquids. Pt initially w/o s/s aspiration, however increased throat clearing and coughing appreciated on both consistencies as intake progressed. Pt also endorsed globus sensation in his upper pharynx, possibly indicative of pharyngealresidue. Would recommend further instrumental swallow evaluation to further define swallow physiology and guide diet recommendations. Recommendations: Diet Liquids Recommendation: Thin/ Thin (0) Diet Solids Recommendation: Pureed Dys 1/ Pureed (4) (Per MD discretion, pending MBS results) Recommended Form of Meds: Crushed;With puree Recommended Tests/Consults: Modified Barium Swallow Discharge Recommendations: Speech therapy is recommended to improve swallow function. SUBJECTIVE: Patient Goals: To eat breakfast, drink water Pain Assessment: Pain Rating Score #: 0 Follow-up for pain: No follow-up for pain indicated and patient agreed to proceed with treatment OBJECTIVE: Level of Consciousness: alert, increasingly more verbal and appropriate as therapy progressed Orientation Level: Pt mumbled incoherently in response to orientation questions Positioning: Upright in bed Respiratory Status: room air Swallow Trials: Thin Liquid: Presentation: Cup-Assisted Oral: (Occaisonal anterior spill) Pharyngeal: Throat Clearing - Delayed;Throat Clearing - Immediate (Weak attempts to clear) Puree: Presentation: Spoon-Assisted Oral: Increased Anterior to Posterior Transit Pharyngeal: Throat Clearing - Delayed Solid: Presentation: (Did not trial d/t safety concerns) Assessment: Risk For Aspiration: Moderate Primary Diagnostic Impression - Oral: Moderate Primary Diagnostic Impression - Pharyngeal: Mild;Moderate (suspected) Treatment/Education/Interventions: While performing OIL FIELD PUMPER, Patient and sister were instructed in: goals of treatment , diet/liquid recommendations and swallowing strategies/aspiration precautions. Patient demonstrated Fair understanding of instructions given. Nurse and Physician contacted regarding results of treatment session. INFORMED CONSENT TO TREATMENT: Plan of care is discussed but patient with questionable understanding. Short Term Goals Patient will tolerate recommended food and liquid consistencies without clinical signs of aspiration. Patient will follow recommended swallowing strategies. Technical Mgr Goal (s): Patient to discharge to appropriate next level of inpatient care. Plan: Modified Barium Swallow * Petra Fuentes MD - 03/22/2022 7:51 AM CDT Hospitalist Progress Note Subjective: No acute events overnight He was able to answer few of my questions Denied any particular complaints Discussed with patient's POA his sister who believes that his current mental status is close to hisbaseline Objective: BP 152/87 Pulse 95 Temp 99 ??F (37.2 ??C) (Oral) Resp 17 Ht 1.829 m (6') Wt 68 kg (150 lb) SpO2 97% Gen: NAD, mood appropriate HEENT: NCAT, EOMI, MMM, no JVD RESP: Clear to auscultation bilaterally CV: NI S1 and S2, No gallops, murmur GI: Soft and non tender, no rigidity and guarding, +BS, no HSM EXT: No edema. MAR reviewed today Relevant labs reviewed today. Creatinine Date Value Ref Range Status 03/22/2022 0.49 (L) 0.71 - 1.16 mg/dL Final Hemoglobin Date Value Ref Range Status 03/22/2022 11.1 (L) 12.0 - 17.6 g/dL Final Relevant imaging reviewed today Reviewed active orders today Assessment/Plan: Epilepsy, unspecified, not intractable, without status epilepticus (CMS/HCC) POA: Yes History of CVA (cerebrovascular accident) POA: Yes Hypertension POA: Yes Sepsis without acute organ dysfunction (CMS/HCC) POA: Unknown Bacteremia POA: Unknown Pneumonia POA: Unknown Ulcer of left foot (CMS/HCC) POA: Unknown PAD (peripheral artery disease) (CMS/HCC) POA: Unknown Protein calorie malnutrition (CMS/HCC) POA: Unknown 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 MSSA bacteremia Sepsis secondary to pneumonia Seizure, continue seizure precaution Chronic encephalopathy Dysphagia Hyperlipidemia Alzheimer's disease Severe protein energy malnutrition History of CVA in 2014 Peripheral vascular disease Hypertension Heart failure with reduced ejection fraction Continue IV Keppra, Vimpat, Ativan as patient is confused intermittently and was changed to NPO perspeech therapy evaluation today On divalproex Sprinkle CT head unremarkable on 03/18 On cefazolin till 03/25 Completed Rocephin and Flagyl for pneumonia treatment Diet - NPO after MBS evaluation per speech therapy recommendation, ordered PPN DVT PPx: Heparin Code Status: Full, discussed with patient's POA on 03/19 PT/OT consulted Fall & aspiration precautions Discussed with care coordination team Discussed with speech therapy Discussed with social media manager Discussed with patient's POA who believed that his mental status is currently close to his baseline. Total time spent more than 38 minutes, more than 50% spent for coordinating patient care and counseling about treatment plan. Petra Fuentes MD, MRCP (), FACP Head Operatorsupervisor fabrication and assembly Department of Internal Medicine Feel free to text page me through [employer]. * Mariajose Estrada RN - 03/22/2022 5:19 AM CDT Problem: Fall Risk Goal: Fall [...] engage in desired activity. Outcome: Progressing * Petra Fuentes MD - 03/21/2022 7:00 AM CDT Hospitalist Progress Note Subjective: No acute events overnight He was able to answer few of my questions His more awake compared to before Denied any particular complaints Objective: BP 151/96 Pulse 102 Temp 99.9 ??F (37.7 ??C) (Oral) Resp 16 Ht 1.829 m (6') Wt 68 kg (150lb) SpO2 98% Gen: NAD, mood appropriate HEENT: NCAT, EOMI, MMM, no JVD RESP: Clear to auscultation bilaterally CV: NI S1 and S2, No gallops, murmur GI: Soft and non tender, no rigidity and guarding, +BS, no HSM EXT: No edema. MAR reviewed today Relevant labs reviewed today. Creatinine Date Value Ref Range Status 03/21/2022 0.51 (L) 0.71 - 1.16 mg/dL Final Hemoglobin Date Value Ref Range Status 03/21/2022 10.4 (L) 12.0 - 17.6 g/dL Final Relevant imaging reviewed today Reviewed active orders today Assessment/Plan: Epilepsy, unspecified, not intractable, without status epilepticus (CMS/HCC) POA: Yes History of CVA (cerebrovascular accident) POA: Yes Hypertension POA: Yes Sepsis without acute organ dysfunction (CMS/HCC) POA: Unknown Bacteremia POA: Unknown Pneumonia POA: Unknown Ulcer of left foot (CMS/HCC) POA: Unknown PAD (peripheral artery disease) (CMS/HCC) POA: Unknown Protein calorie malnutrition (CMS/HCC) POA: Unknown 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 MSSA bacteremia Sepsis secondary to pneumonia Seizure, continue seizure precaution Encephalopathy Dysphagia Hyperlipidemia Alzheimer's disease Severe protein energy malnutrition History of CVA in 2015 Peripheral vascular disease Hypertension Heart failure with reduced ejection fraction Continue IV Keppra, Vimpat, Ativan as patient is confused intermittently. Continue divalproex Sprinkle CT head unremarkable on 03/18 On cefazolin till 03/25 Completed Rocephin and Flagyl for pneumonia treatment Diet - pureed diet per speech therapy evaluation DVT PPx: Heparin Code Status: Full PT/OT consulted Fall & aspiration precautions Discussed with care coordination team Petra Fuentes MD, MRCP (), FACP Head Operatorsupervisor fabrication and assembly Department of Internal Medicine Feel free to text page me through [employer]. * Bety Abdi RN - 03/20/2022 10:27 PM CDT Problem: Swallowing Goal: STG - Patient will tolerate recommended food and liquid consistencies without clinical signs and symptoms of aspiration Outcome: Progressing Goal: STG - Patient will follow recommended swallowing strategies Outcome: Progressing Problem: Fall Risk Goal: Fall [...] engage in desired activity. Outcome: Progressing * Petra Fuentes MD - 03/20/2022 6:54 AM CDT Hospitalist Progress Note Subjective: No acute events overnight He was able to answer few of my questions His more awake compared to before Objective: BP 150/89 Pulse 102 Temp 98.5 ??F (36.9 ??C) (Axillary) Resp 18 Ht 1.829 m (6') Wt 68 kg (150 lb) SpO2 96% Gen: NAD, mood appropriate HEENT: NCAT, EOMI, MMM, no JVD RESP: Clear to auscultation bilaterally CV: NI S1 and S2, No gallops, murmur GI: Soft and non tender, no rigidity and guarding, +BS, no HSM EXT: No edema. MAR reviewed today Relevant labs reviewed today. Creatinine Date Value Ref Range Status 03/20/2022 0.51 (L) 0.71 - 1.16 mg/dL Final Hemoglobin Date Value Ref Range Status 03/20/2022 9.9 (L) 12.0 - 17.6 g/dL Final Relevant imaging reviewed today Reviewed active orders today Assessment/Plan: Epilepsy, unspecified, not intractable, without status epilepticus (CMS/HCC) POA: Yes History of CVA (cerebrovascular accident) POA: Yes Hypertension POA: Yes Sepsis without acute organ dysfunction (CMS/HCC) POA: Unknown Bacteremia POA: Unknown Pneumonia POA: Unknown Ulcer of left foot (CMS/HCC) POA: Unknown PAD (peripheral artery disease) (CMS/HCC) POA: Unknown Protein calorie malnutrition (CMS/HCC) POA: Unknown 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 MSSA bacteremia Sepsis secondary to pneumonia Seizure, continue seizure precaution Encephalopathy Dysphagia Hyperlipidemia Alzheimer's disease Severe protein energy malnutrition History of CVA in 2014 Peripheral vascular disease Hypertension Heart failure with reduced ejection fraction Continue IV Keppra, Vimpat, Ativan Continue divalproex Sprinkle CT head unremarkable on 03/18 On cefazolin till 03/25 Completed Rocephin and Flagyl for pneumonia treatment Diet - pureed diet per speech therapy evaluation DVT PPx: Heparin Code Status: Full PT/OT consulted Fall & aspiration precautions Discussed with care coordination team Petra Fuentes MD, MRCP ([place]), FACP Head Operatorsupervisor fabrication and assembly Department of Internal Medicine Feel free to text page me through [employer]. * Ciara Jaramillo, JOSIAS - 03/19/2022 4:00 PM CDT [facility] Department of Physical Medicine & Rehabilitation Speech Therapy Progress Note Patient: Mojgan Tabor [facility] Record Number: [id number] Date of : 1960 Age: [age] year old 03/19/22 1552 Missed Visit Missed Visit Pt was sleeping soundly at time of speech therapy visit. Pt will be on schedule to be seen on 03/20 for ongoing dysphagia therapy. * Myrna Hammond - 03/19/2022 12:22 PM CDT Fabric Pattern Grader followed a pastoral care consult requesting a gizzard peeler visit. Patient was asleep, his sister was present in the room. Fabric Pattern Grader engaged her in conversation. She spoke of their large family asa good system of support for one another. Fabric Pattern Grader provided a pastoral presence and active listening. Pastoral care remains available continuously in the hospital. Myrna Hammond 03/19/2022 12:26 PM * Angelina Gould MSW - 03/19/2022 12:19 PM CDT Tuesday Summary Note Discharge Level of Care: SNF vs acute rehab Discharge Destination: [facility] vs [facility] Phone Number: n/a Fax Number: n/a Insurance Auth: will need auth for acute rehab Anticipated Mode of Transportation: ambulance Contacts (Name, relationship, phone #): Adriane Hilliard (sister) [phone] Anticipated DC Date: TBD Pending Needs: Comments: awaiting medical stability, patient from [facility] but family interested in [facility] due to new amputation CLARITA Ochoa Phone [phone] 03/19/2022 * Ivy Mata RN - 03/19/2022 11:05 AM CDT Case Management Progress Note Anticipated level of care at discharge: [facility]illed [facility] Basic Needs Assessment (BNA) Score: 15 Anticipated Discharge Date: 03/25/2022 Transportation at Discharge: Medicaid Provider Transportation to MD: Medicaid Provider Equipment at Home: Equipment at Home: Wheelchair-Standard Additional DME needed: None Pharmacy benefit: Yes Comments: 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 Continue to work with PT/OT. Working with OIL FIELD PUMPER to improve swallow function. Possible dc to [facility]. Continues IV abx with EOT 03/25/2022. Continue to monitor forplacement. Ivy Mata RN, BSN Mask Inspector [phone] * Baylee Quintero RN - 03/19/2022 10:45 AM CDT Problem: Fall Risk Goal: Fall risk and fall related injury risk are minimized (interventions related to the fall risk can be found in the flowsheet documentation) Outcome: Progressing * Petra Fuentes MD - 03/19/2022 7:01 AM CDT Hospitalist Progress Note Subjective: No acute events overnight Patient was awake this morning, not oriented Objective: BP 126/78 Pulse 94 Temp 99.3 ??F (37.4 ??C) (Oral) Resp 16 Ht 1.829 m (6') Wt 68 kg (150 lb) SpO2 97% Gen: NAD, mood appropriate HEENT: NCAT, EOMI, MMM, no JVD RESP: Clear to auscultation bilaterally CV: NI S1 and S2, No gallops, murmur GI: Soft and non tender, no rigidity and guarding, +BS, no HSM EXT: No edema. MAR reviewed today Relevant labs reviewed today. Creatinine Date Value Ref Range Status 03/19/2022 0.56 (L) 0.71 - 1.16 mg/dL Final Hemoglobin Date Value Ref Range Status 03/19/2022 9.9 (L) 12.0 - 17.6 g/dL Final Relevant imaging reviewed today Reviewed active orders today Assessment/Plan: Epilepsy, unspecified, not intractable, without status epilepticus (CMS/HCC) POA: Yes History of CVA (cerebrovascular accident) POA: Yes Hypertension POA: Yes Sepsis without acute organ dysfunction (CMS/HCC) POA: Unknown Bacteremia POA: Unknown Pneumonia POA: Unknown Ulcer of left foot (CMS/HCC) POA: Unknown PAD (peripheral artery disease) (CMS/HCC) POA: Unknown Protein calorie malnutrition (CMS/HCC) POA: Unknown 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 MSSA bacteremia Sepsis secondary to pneumonia Seizure, continue seizure precaution Encephalopathy Dysphagia Hyperlipidemia Alzheimer's disease Severe protein energy malnutrition History of CVA in 2014 Peripheral vascular disease Hypertension Heart failure with reduced ejection fraction Continue IV Keppra, Vimpat, Ativan Continue divalproex Sprinkle CT head unremarkable on 03/18 On cefazolin till 03/25 Completed Rocephin and Flagyl for pneumonia treatment Diet - pureed diet per speech therapy evaluation DVT PPx: Heparin Code Status: Full PT/OT consulted Fall & aspiration precautions Discussed with care coordination team Discussed patient at the multidisciplinary rounding Total time spent more than 45 minutes, more than 50% spent for coordinating patient care and counseling about treatment plan. Petra Fuentes MD, [facility] (), FACP Head Operatorsupervisor fabrication and assembly Department of Internal Medicine Feel free to text page me through [employer]. * Mira Valdez MD - 03/18/2022 3:41 PM CDT [facility] Infectious Diseases Progress Note Admitted on: 03/08/2022 1:54 PM Hospital stay: Day 10 Room: [facility]/01 Attending: Petra Fuentes MD Reason for ID F/U: MSSA bacteremia Brief History and Hospital Course: Mojgan Tabor??is a 62??year old?? male??with PMH??of??HTN, HLD, PVD,??CVA (2014), prior head injury (from a fall?), refractory epilepsy,??Alzheimer's (early onset),??alcohol abuse, and??cervical osteoarthritis,??who??[facility]ed to [facility] from SNF??on 03/08/2022 for??worsening mentation.??Family came to visit??the patient??and noticed the patient was not??as??alert. Patient isnormally A&O x 2 at baseline.? Upon arrival to the ED, febrile Tmax 101.6, leukocytosis WBC of 20.8, lactic acid 3.0. Blood culture was sent, then started on ceftriaxone and IV vancomycin. CT C/A/P showed dependent left basilar consolidation with mild tree-in-bud opacities, and mild posterior right upper lobe tree-in-bud opacities, findings suggestive of??aspiration pneumonia; also revealed multiple bilateral pulmonary nodules, representing??multifocal infection??vs??adenocarcinoma. Noted??chronic skin change to left foot, particularly the??2nd and 3rd toes??with??darker??discoloration and??ulcer??to the??medial aspect of the 1st MTP with erythema and edema.??Vascular surgery was consulted,??multilevel ABIs and arterial duplex??was performed, showing??severe peripheral vascular disease??of left??lower extremity, and??left superficial femoral artery significant stenosis. On 03/11/2022, ID consulted for MSSA bacteremiawith uncertain source. ?? 03/15 s/p left above knee amputation. Path negative SUBJECTIVE & INTERVAL HISTORY: Patient seen and examined. No fever No labs today Current Abx: ceftriaxone and flagyl Inpatient Medications ??? 0.9% NaCl 3 mL Intracatheter q8h ??? acetaminophen 650 mg Oral TID ??? amLODIPine 5 mg Oral AT BEDTIME ??? aspirin 81 mg Oral QDAY ??? atorvastatin 40 mg Oral QDAY ??? cefTRIAXone 2,000 mg Intravenous q24h ??? divalproex sprinkle 500 mg Oral QDAY ??? divalproex sprinkle 750 mg Oral BID ??? folic acid 1 mg Oral QDAY ??? heparin 5,000 Units Subcutaneous TID ??? lacosamide 200 mg Intravenous BID ??? levETIRAcetam 2,000 mg Intravenous q12h ??? LORazepam 0.5 mg Intravenous TID ??? metroNIDAZOLE 500 mg Oral q8h ??? perflutren lipid microsphere 0.5 mL Intravenous intra-Procedure multiple ??? polyethylene glycol 3350 17 g Oral QDAY ??? tamsulosin 0.4 mg Oral QDAY ??? thiamine 100 mg Oral QDAY PRN Medications ??? SALINE LOCK, INSERT AND MAINTAIN AND 0.9% NaCl AND 0.9% NaCl ??? artificial tears ??? oxyCODONE OR [DISCONTINUED] oxyCODONE ??? polyethylene glycol 3350 OBJECTIVE: Vital Signs: BP 138/90 Pulse (!) 113 Temp 99.1 ??F (37.3 ??C) (Axillary) Resp 18 Ht 6' (1.829 m) Wt 150 lb (68 kg) SpO2 95% Temp (24hrs), Av.3 ??F (37.4 ??C), Min:98.7 ??F (37.1 ??C), Max:99.9 ??F (37.7 ??C) I/O: Intake/Output Summary (Last 24 hours) at 03/18/2022 1542 Last data filed at 03/18/2022 0435 Gross per 24 hour Intake -- Output 600 ml Net -600 ml Physical Exam: General:??sleeping Lungs: Clear to auscultation bilaterally Heart: RRR, S1, S2 normal, no murmur, click, rub or gallop Abdomen: Soft, non-distended, non-tender, +BS Extremities:??left above knee amputation Skin:??Skin color, texture, turgor normal Lines: Peripheral IV Right Ankle 9 days Peripheral IV Anterior;Left;Upper Arm 5 days Condom Urinary Catheter 03/08/22 1426 10 days Other Wound Left Foot 10 days LABS CBC: Recent Labs Component Name 03/17/22 1112 03/16/22 0619 03/14/22 2203 WBC 11.2* 8.9 10.1 RBC 3.35* 3.15* 3.54* HGB 10.7* 10.0* 11.4* HCT 32.7* 31.0* 33.4* MCV 97.6 98.4* 94.4 BMP: Recent Labs Component Name 03/18/22 0606 03/17/22 1112 03/16/22 0619 03/14/22 2203 03/14/22 0458 03/12/22 0158 03/11/22 1059 NA 140 140 142 140 137 - 139 CL 107 106 107 104 107 - 104 CO2 27 29 29 28 26 - 30* BUN 11 10 12 9 11 - 7 CREATININE 0.56* 0.53* 0.69* 0.52* 0.49* - 0.50* ALB - 1.8* 1.6* 1.8* 1.7* - 1.9* PROT - 6.2 - - 5.8* - 5.9* - = values in this interval not displayed. estimated creatinine clearance is 133.2 mL/min (A) (by C-G formula based on SCr of 0.56 mg/dL (L)). Recent Labs Component Name 03/17/22 1112 03/14/22 0458 03/11/22 1059 ALT 21 23 26 AST 34 35* 60* ALKPHOS 73 73 71 TBILI 0.2 0.3 0.4 MICROBIOLOGY: Blood culture 03/09 MSSA 03/11 final no growth HISTOPATHOLOGY: 03/15 Leg, left, above knee amputation (A): - Skin with ulceration and necrosis - Underlying bone with marrow fibrosis, negative for osteomyelitis - Vascular calcifications - Soft tissue margins appear viable IMAGING & PROCEDURE: Pertinent images independently reviewed; report in chart. ASSESSMENT & RECOMMENDATIONS: MSSA bacteremia Will need to complete 14 days of treatment from 03/11 (EOT 03/25), can switch to cefazolin to complete the course of treatment. PNA treatment On ceftriaxone and flagyl (completed) Leg wound S/p amputation Clear margin Can stop abx for this Continue local wound care. I will sign off. Thank you for allowing us to participate in the care of this patient. Primary team: MED (Plan discussed with the team) >35 minutes spent on the care of this patient. > 50% was spent in counseling and coordinationof care that included the patient and the primay team. Mira Valdez MD MPH Infectious Diseases (Team 2) * Ciara Jaramillo SLP - 03/18/2022 1:48 PM CDT [facility] Physical Medicine and Rehabilitation Swallow Treatment Patient: Mojgan Tabor [facility] Record Number: [id number] Date of : 1960 Age: [age] year old PPE: PPE worn by staff: eye protection;gloves;mask - N95;gown - disposable PPE worn by patient: gown - patient, clean Impressions: Pt initially demonstrated increased oral transit time of puree, with pt holding bolus in oral cavity and requiring repeated cues to initiate transit/swallow. With repeated cues and on subsequent trials, timeliness of transit improved along with oral clearance. Pt required cues to take small sips of liquids (pinched straw; verbal cues). On one instance of larger amount of intake, pt coughed repeatedly and had wet voice quality, likely indicating laryngeal penetration/aspiration on larger amount of thin liquid intake. With nursing, pt consumed crushed meds with applesauce and againrequired multiple cues to complete transit and initiate swallows. Recommend Puree (4)/DYS1 diet only when pt is fully alert and participatory. Recommendations: Diet Liquids Recommendation: Thin/ Thin (0) (In small, controlled amounts (via spoon or pinched straw)) Diet Solids Recommendation: Pureed Dys 1/ Pureed (4) Recommended Form of Meds: Crushed;With puree (Only when alert and participatory) Compensatory Swallowing Strategies: 90 Degrees elevation for all oral intake;Full supervision with meals;One to one assist with meals;Verbal cueing required to use;Small bites/sips;Eat/Feed slowly;Tongue sweep to clear oral;Feed patient only when alert (Cues to clear oral cavity) Recommended Tests/Consults: Recommendations: Dysphagia Treatment Discharge Recommendations: Speech therapy is recommended to improve swallow function. SUBJECTIVE: Patient Goals: Pt wanted a drink of water. Pain Assessment: Pain Rating Score #: (Pt did not indicate pain.) Follow-up for pain: No follow-up for pain indicated and patient agreed to proceed with treatment OBJECTIVE: Level of Consciousness: alert; pt appeared fatigued at end of therapy session. Orientation Level: Pt turned head to look at his sister when she stated his name. Other orientationinformation was not assessed. Positioning: Upright in bed Respiratory Status: room air Swallow Trials: Ice chips: Presentation: Spoon-Assisted Oral: Impaired Mastication;Increased Anterior to Posterior Transit;Delayed Initiation (Pt held ice chip in oral cavity and allowed it to melt with minimal manipulation.) Pharyngeal: No signs/symptoms of aspiration;Delayed Swallow;Decreased Laryngeal Elevation Thin Liquid: Presentation: Spoon-Assisted;Straw-Assisted Oral: Delayed Initiation;Increased Anterior to Posterior Transit (Occasional anterior spillage) Pharyngeal: Delayed Swallow;Decreased Laryngeal Elevation (One instance of coughing on larger amount of intake; when pt was cued to take small sips (pinched straw and verbal cues), no clinical signs of aspiration were noted.) Puree: Presentation: Spoon-Assisted Oral: Increased Anterior to Posterior Transit;Delayed Initiation (Pt initially held bolus in oral cavity for up to 20 seconds; with multiple cues (tactile and verbal), pt eventually initiated transitand swallowed. With subsequent trials, transit was more timely with nearly complete oral clearance.) Pharyngeal: Delayed Swallow;Decreased Laryngeal Elevation Solid: Presentation: (Solids not attempted due to safety concern.) Assessment: Risk For Aspiration: Moderate Primary Diagnostic Impression - Oral: Moderate (Variable dependent on pt's alertness/participation.) Primary Diagnostic Impression - Pharyngeal: Moderate Treatment/Education/Interventions: While performing OIL FIELD PUMPER, Patient and sister were instructed in: goals of treatment , diet/liquid recommendations and swallowing strategies/aspiration precautions. Patient demonstrated Fair understanding of instructions given. Pt's sister verbalized understanding. Nurse contacted regarding results of treatment session. INFORMED CONSENT TO TREATMENT: Plan of care is discussed but patient with questionable understanding. Pt's sister agreed to proceed. Short Term Goals Patient will tolerate recommended food and liquid consistencies without clinical signs of aspiration., Patient will follow recommended swallowing strategies. Intermediate Goal (s): Patient to discharge to appropriate next level of inpatient care. Plan: Continue speech therapy for dysphagia treatment. * Verito Denson RN - 03/18/2022 7:44 AM CDT Problem: Fall Risk Goal: Fall risk and fall related injury risk are minimized (interventions related to the fall risk can be found in the flowsheet documentation) Outcome: Progressing Problem: Skin Integrity Goal: Skin integrity is maintained or improved Outcome: Progressing Problem: Pain/Discomfort Goal: Patient uses pharmacological and non-pharmacological pain management strategies. Outcome: Progressing * Petra Fuentes MD - 03/18/2022 6:52 AM CDT Hospitalist Progress Note Subjective: No acute events overnight Patient was awake this morning, note oriented Patient is very sleepy yesterday afternoon Objective: BP 136/88 Pulse 101 Temp 99.5 ??F (37.5 ??C) (Oral) Resp 16 Ht 1.829 m (6') Wt 68 kg (150lb) SpO2 98% Gen: NAD, mood appropriate HEENT: NCAT, EOMI, MMM, no JVD RESP: Clear to auscultation bilaterally CV: NI S1 and S2, No gallops, murmur GI: Soft and non tender, no rigidity and guarding, +BS, no HSM EXT: No edema. MAR reviewed today Relevant labs reviewed today. Creatinine Date Value Ref Range Status 03/17/2022 0.53 (L) 0.71 - 1.16 mg/dL Final Hemoglobin Date Value Ref Range Status 03/17/2022 10.7 (L) 12.0 - 17.6 g/dL Final Relevant imaging reviewed today Reviewed active orders today Assessment/Plan: Epilepsy, unspecified, not intractable, without status epilepticus (CMS/HCC) POA: Yes History of CVA (cerebrovascular accident) POA: Yes Hypertension POA: Yes Sepsis without acute organ dysfunction (CMS/HCC) POA: Unknown Bacteremia POA: Unknown Pneumonia POA: Unknown Ulcer of left foot (CMS/HCC) POA: Unknown PAD (peripheral artery disease) (CMS/HCC) POA: Unknown Protein calorie malnutrition (CMS/HCC) POA: Unknown 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 MSSA bacteremia Sepsis secondary to pneumonia Seizure, continue seizure precaution Encephalopathy Dysphagia Hyperlipidemia Alzheimer's disease Severe protein energy malnutrition History of CVA in 2014 Peripheral vascular disease Hypertension Heart failure with reduced ejection fraction On EEG Continue IV Keppra, Vimpat, Ativan Continue divalproex Sprinkle Pending Vimpat and Onfi levels CT head unremarkable on 03/18 Currently on Rocephin, Flagyl Appreciate neurology team recommendations Diet - NPO per speech therapy evaluation, he will have repeat speech evaluation today DVT PPx: Heparin Code Status: Full PT/OT consulted Fall & aspiration precautions Discussed with neurology team Discussed with care coordination team Discussed patient at the multidisciplinary rounding Total time spent more than 45 minutes, more than 50% spent for coordinating patient care and counseling about treatment plan. Petra Fuentes MD, MRCP (), FACP Head Operatorsupervisor fabrication and assembly Department of Internal Medicine Feel free to text page me through [employer]. * Anna Membreno MD - 03/18/2022 6:21 AM CDT Images from the original note were not included. [facility] Vascular Surgery Consult Note Name: Mojgan Tabor : 1960 Date of Service: 03/18/22 Attending Surgeon: Dr. Membreno Progress Note POD: 3 HPI: This is a 62 year old male with pmh of htn, CVA, HLD, alzheimer, and epilepsy brought to hospital after patient's family noted that he has worsening mental status at assisted. Patient was initially consulted to the vascular surgery service due to Left foot 2nd and 3rd digit dry gangrene. Plan was to follow up in clinic one week after discharge due to patient being unfit for surgical intervention. Patient was re-consulted to the vascular surgery service for re-evaluation of LLE wounds as possible cause of patient's bacteremia. SUBJECTIVE: Patient seen and evaluated on rounds this AM. Patient with no acute events overnight. Resting in bed this AM with no new complaints. Incision dressing was removed, picture uploaded, and applied new clean dressing. Past Medical History: Diagnosis Date CVA (cerebral vascular accident) (CMS/HCC) HTN (hypertension) Seizure (CMS/HCC) Surgical Hx: - Left AKA (03/15/22) No family history on file. Social History Socioeconomic History Marital status: Single Spouse name: Not on file Number of children: Not on file Years of education: Not on file Highest education level: Not on file Occupational History Not on file Tobacco Use Smoking status: Former Smoker Packs/day: 1.00 Years: 15.00 Pack years: 15.00 Smokeless tobacco: Never Used Vaping Use Vaping Use: Never used Substance and Sexual Activity Alcohol use: No Comment: last drink 2016 Drug use: No Comment: occasional Sexual activity: Not Currently Other Topics Concern Not on file Social History Narrative Not on file Social Determinants of Health Financial Resource Strain: Not on file Food Insecurity: No Food Insecurity Worried About Running Out of Food in the Last Year: Never true Ran Out of Food in the Last Year: Never true Transportation Needs: Not on file Physical Activity: Not on file Stress: Not on file Social Connections: Not on file Intimate Partner Violence: Not on file Housing Stability: Not on file Allergies Allergen Reactions Clonazepam Psychiatric hallucinations No current outpatient medications on file. Data: Labs: Recent Labs Component Name 03/17/22 11103/16/2261803/14/222202 WBC 11.2* 8.9 10.1 HGB 10.7* 10.0* 11.4* HCT 32.7* 31.0* 33.4* MCV 97.6 98.4* 94.4 Recent Labs Component Name 03/17/22 1112 03/16/2261803/14/22220203/14/22457 NA 140 142 140 137 CL 106 107 104 107 CO2 29 29 28 26 BUN 10 12 9 11 CREATININE 0.53* 0.69* 0.52* 0.49* CALCIUM 9.0 8.5 9.1 9.0 MAGNESIUM - 1.6 1.8 1.7 PHOS - 3.2 2.3* 2.3* Recent Labs Component Name 03/17/22 1112 03/16/2261803/14/22220203/14/22 0458 03/12/22 0158 03/11/22 1059 03/03/18 1745 01/30/18 1255 11/28/17 0455 10/14/17 1349 10/13/17 1526 PROT 6.2 - - 5.8* - 5.9* - 6.9 - 7.0 8.4* ALB 1.8* 1.6* 1.8* 1.7* - 1.9* - 3.7 - 3.9 4.8 TBILI 0.2 - - 0.3 - 0.4 - 0.4 - 0.6 1.4* DBILI - - - - - - - 0.2 - 0.2 0.4 AST 34 - - 35* - 60* - 14 - 18 23 ALT 21 - - 23 - 26 - 10 - 9 11 ALKPHOS 73 - - 73 - 71 - 75 - 86 88 - = values in this interval not displayed. Recent Labs Component Name 03/11/22 1059 03/05/22 1110 02/25/21 1134 INR 1.2 1.0 1.1 No results for input(s): PHART, PO2ART, NAB4MIB, BEART in the last 53599 hours. I/O last 3 completed shifts: In: 195 [P.O.:95] Out: 1350 [Urine:1350] Imaging: CT HEAD WO CONTRAST Result Date: 03/11/2022 [...] Wojciech Neil MD on 03/10/2022 6:[address] CHEST ABDOMEN PELVIS W CONT [...] pelvis. > Dictated by Brandee Celestin MD (financial institution vice president). I, John Graham MD have personally reviewed and interpreted this examination/study. > Interpreting Provider: John Graham MD on 03/09/2022 9:27 AM Review of Systems: Unable to perform ROS due to patient's altered mental status Physical Exam: BP 136/88 Pulse 101 Temp 99.5 ??F (37.5 ??C) (Oral) Resp 16 Ht 6' (1.829 m) Wt 150 lb (68kg) SpO2 98% Gen: NAD, incomprehensible speech HEENT: Head NC/AT. EOMI. Neck without deformity CV: RLE WWP Pulm: Non labored breathing on RA Abdomen: Soft, non distended. Extremities: No RLE edema. Left AKA incision appears to be healing well with genie intact and covered with clean/dry dressing, no purulent drainage, no erythema Neuro: ADORE Psych: Flat affect Assessment: This is a 62 year old male with left foot gangrene s/p Left AKA that was performed 03/15. Plan/Recommondations: - Pain control and wound care as needed - Continue HSQ DVT Prophylaxis -Vascular surgery to arrange follow up for staple removal and prosthetics consult. - Dressing changed today, vascular to sign off Patient has been seen and discussed with my attending physician Dr. Membreno. Riky Williamson MD [facility] Vascular Surgery 03/18/2022 6:22 AM Attending/Teaching Physician Documentation I have seen and examined the patient with the resident, independently reviewed lab and imaging results and I agree with the findings and plan of care as documented by the resident. Date of Service isdate of resident signature in resident note * Angelina Gould MSW - 03/17/2022 2:48 PM CDT SW continues to follow. PT/OT recs are for SNF, however due to patient's [place] medicaid theray in SNF would be limited. Patient has previously been to [facility], [facility] gave referral to [facility] to review to see if patient would be a rehab candidate. CLARITA Guzman 03/17/2022 [phone] * Dina Thomas, JOSIAS - 03/17/2022 1:59 PM CDT [facility] Physical Medicine and Rehabilitation Bedside Swallow Re-Assessment Patient: Mojgan Tabor [facility] Record Number: [id number] Date of : 1960 Age: [age] year old Patient Active Problem List: Seizure (CMS/HCC) Cerebrovascular accident ([facility]/HCC) Hyperlipidemia Hypertension Insomnia Low back pain Osteoporosis Truncal ataxia Therapeutic procedure Seizures ([facility]/HCC) Alcohol abuse, uncomplicated Benign neoplasm of prostate Epilepsy, unspecified, not intractable, without status epilepticus ([facility]/HCC) Difficulty in walking, not elsewhere classified Muscle weakness (generalized) Other specified rheumatoid arthritis, unspecified site ([facility]/HCC) Syncope and collapse Alzheimer's disease with early onset ([facility]) Cognitive communication deficit COVID-19 Dysphagia, oropharyngeal phase Hemiplegia and 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- dominant side ([facility]/HCC) History of CVA (cerebrovascular accident) Paroxysmal tachycardia, unspecified ([facility]/HCC) Status epilepticus ([facility]/HCC) Acute encephalopathy Sepsis without acute organ dysfunction ([facility]) Bacteremia Pneumonia Ulcer of left foot ([facility]) PAD (peripheral artery disease) ([facility]) Protein calorie malnutrition ([facility]) Past Medical History: Diagnosis Date ??? CVA (cerebral vascular accident) ([facility]/HCC) ??? HTN (hypertension) ??? Seizure ([facility]) In addition to the 1:1 evaluation of the patient, additional eval time was spent completing the chart review prior to the assessment, completing the multidisciplinary plan of care and education plan post evaluation and communicating results of the eval to other treatment team members. PPE: PPE worn by staff: gloves;gown - disposable;mask - N95;eye protection Impressions: Patient's swallow re-assessed s/p AKA. RN reports coughing after thin liquids. Pt presents with severe oropharyngeal dysphagia. Pt was administered trials of purees by spoon and water via straw and cup. Dysphagia is evidenced by anterior leakage of the bolus, poor bolus formation/manipulation, delayed/reduced laryngeal elevation, wet/gurgly VQ and absent swallow initiation. Pt is a poor candidate for oral intake at this time. ST will monitor pt for diet advance as appropriate. Recommendations: Diet Liquids Recommendation: NPO Diet Solids Recommendation: NPO Recommended Form of Meds: Feeding Tube Recommended Tests/Consults: Deferred at this time d/t severity of dysphagia Discharge Recommendations: Patient will benefit from multidisciplinary inpatient therapies. Speech therapy is recommended to improve swallow function. SUBJECTIVE: Patient Goals: None stated, pt mostly nonverbal Pain Assessment: Pain Rating Score #: 0 Follow-up for pain: No follow-up for pain indicated and patient agreed to proceed with treatment OBJECTIVE: Level of Consciousness: Pt w/ eyes open throughout eval but minimally verbal Orientation Level: unable to obtain, pt did not respond to orientation questions Positioning: Upright in bed Respiratory Status: room air Oral/Motor: Dentition: (Fair) Oral Hygiene : Xerostomic (dry mouth);Tongue coating Labial/Facial: Within Functional Limits Tongue: (Lingual movements to command were not completed.) Vocal Quality: (Decreased loudness) Velopharyngeal Status: (EARNEST, pt did not consistently follow commands) Controls Secretions: Yes Swallow Trials: Thin Liquid: Presentation: Straw-Assisted;Cup-Assisted Oral: Delayed Initiation;Spillage Right;Increased Anterior to Posterior Transit; Pt was unable to form adequate suction w/ a straw to take in the bolus. Pharyngeal: Delayed Swallow;Decreased Laryngeal Elevation;Wet Vocal Quality;Absent Swallow Puree: Presentation: Spoon-Assisted Oral: Delayed Initiation;Increased Anterior to Posterior Transit;Spillage Right (Pt held in oral cavity for up to 30 seconds despite multiple verbal and tactile cues. A liquid wash was not effective in bolus clearance and bolus was subsequently removed.) Pharyngeal: Delayed Swallow;Absent Swallow;Wet Vocal Quality Solid: Presentation: (Did not trial d/t safety concerns) Assessment: Risk For Aspiration: Moderate Primary Diagnostic Impression - Oral: Severe Primary Diagnostic Impression - Pharyngeal: Moderate Education/Interventions: While performing OIL FIELD PUMPER, Patient was instructed in: recommendations for NPO status given patient's elevated aspiration risk. Patient demonstrated Questionable understanding of instructions given. Physician and Nurse contacted regarding results of swallow evaluation and recommendations. INFORMED CONSENT TO TREATMENT: Plan of care is discussed but patient with questionable understanding. Short Term Goals Patient will demonstrate an improvement in oropharyngeal swallow function to warrant diet upgrade. Intermediate Goal (s): Patient to discharge to appropriate next level of inpatient care. Plan: Dysphagia tx for ongoing assessment * Elmo Lawrence, - 03/17/2022 1:50 PM CDT Neurology Progress Note Patient: Mojgan Tabor Age: [age] year old Admission Date and Time: 03/08/2022 Reason for consult: concern for sz activity History of Presenting Illness: Mojgan Tabor is a 62 year old male Pt is a 62 y/o m with a pmhx of HTN, HLD, PVD, CVA (2015), refractory epilepsy, Alzheimer's (early onset), alcohol abuse, and cervical osteoarthritis. Neurology was consulted due to a CAFE MANAGER paged for unresponsiveness. At 1012 on 03/16/22 while working with PT his eyes rolled back, no limb jerking or rhythmic movements were noted. Primary doctor assessed the pt at 1028 and by 1035 pt was responding to questions appropriately. Of note, pt had a left above the knee amputation yesterday that reportedly went well. Per his family he was last seen normal on Tuesday before his surgery. Per family his baseline he is normally conversational without dementia/dementia features, which is different from previous documentation, which states he is AOx2. Patient is being treated with vancomycin/ceftriazone/flagyl for suspected pna/bactermia. Neurology was previously consulted on this patient on 03/09 for optimization of AEDs/ r/u subclinical seizures. He had reduced consciousness but this was believed to be due to infections and less likely seizures. A eeg tht was ordered on 03/12 showed bilateral fronto-temporal epileptiform discharges, more frequently on the right, and 2) generalized slowing. A CTH was negative. At that time it wasrecommended to continue keppra 2000mg BID, depakote DR 1000mg BID, lacosamide 200mg BID, clobazam 10mg BID. Depakote level was checked and found to be 99(range 50-100), keppra found to be 59(range 10-40) vimpat and clobazam levels pending. Pt missed 18 am doses of AEDs Per family, semiology consists of staring off spells. Interval events: Patient is oriented to self, following directions and maintaining good eye contact. Nurse reports a bout of staring off this am. Past Medical History No history on file. Past Medical History: Diagnosis Date ??? CVA (cerebral vascular accident) (CMS/HCC) ??? HTN (hypertension) ??? Seizure (CMS/HCC) Past Surgical History: Procedure Laterality Date ??? Leg Amputation, Below Knee Left 03/15/2022 Left; LEFT BKA POSS AKA Allergies Allergies Allergen Reactions ??? Clonazepam Psychiatric hallucinations Family History No family history on file. Social History Social History Social History Narrative ??? Not on file Review of Systems EARNEST Objective: BP 128/89 Pulse (!) 111 Temp 99.5 ??F (37.5 ??C) (Oral) Resp 18 Ht 1.829 m (6') Wt 68 kg (150 lb) SpO2 95% Temp (30hrs) Max:100.1 ??F (37.8 ??C) Body mass index is 20.34 kg/m??. Exam: General: Con - NAD, afebrile Heent - NCAT, MMM, anicteric Neck - No JVD, LAD, trachea midline CV - RRR for age, normal s1/s2, no m/r/g Pulm - CTAB, no w/r/r Abd - BS+, soft, NTND Ext: No c/c/e, 2+ dpp, normal ROM Cortical Function Mental Status Following commands, makes good eye contact Orientation AOx1 Language will speak 1-2 words at a time Visual Ivan Intact bilaterally to confrontation Neglect No visual neglect noted, no tactile neglect noted Cranial Nerves II Pupils 3 mm and bilaterally reactive to light. Fundoscopic exam not performed. VIII did not comply with hearing assessment III/IV/ Extraocular muscles seem intact, will not follow commands for assessment IX/X Palate elevated symmetrically without phonation abnormalities noted. V Facial sensation symmetric XI Turnining head L and R spontaneously VII No facial palsy noted. XII Tongue is midline with normal movements and no atrophy noted. Motor Function Movement No abnormalities noted Bulk No abnormalities noted Tone increased tone bilateral hands Proximal Upper Distal Upper Proximal Lower Distal Lower Right 3/5 4/5 2/5 3/5 Left 3/5 4/5 2/5 amputated Muscle Stretch Reflexes BI TRI BR PAT ACH TOES Right 3 2 3 2 2 Down Left 3 2 3 2 n/a n/a Sensory Light Touch Symmetric and intact bilaterally Noxious Stimuli Symmetric and intact bilaterally Cerebellar EARNEST Gait Deferred Labs: Reviewed. EEG: IMPRESSION This is an abnormal cEEG due to 1) right fronto-temporal epileptiform discharges, 2) focal slowing over the right hemisphere, and 3) generalized slowing. ?? CLINICAL CORRELATION: From 03/16/2022 to 03/17/2022, this study was consistent with an increased tendency towards seizures, right hemispheric structural or functional dysfunction, and mild encephalopathy. Neuroimaging: CTH(03/11/22):IMPRESSION: ?? 1.No acute intracranial abnormality. 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 ?? Assessment and Recommendations: Mojgan Tabor is a 62 year old male Pt is a 62 y/o m with a pmhx of HTN, HLD, PVD, CVA (2015), priorhead injury, refractory epilepsy, Alzheimer's (early onset), alcohol abuse, and cervical osteoarthritis. Neurology was consulted due to a CAFE MANAGER page for unresponsiveness, concern for sz activity. Pt recently underwent a significant homeostatic insult due to his leg amputation which could certainly lower his seizure threshold. This combined with a recently missed am dosing of his AEDs warrants further investigation into any potential seizure activity, especially with his presentation of staring off that is consistent with his semiology EEG demonstrates increased tende increased tendency towards seizures, right hemispheric structural or functional dysfunction, and mild encephalopathy, although no kate seizures were detected on eeg.Patient has intractable epilepsy, and these eeg findings are likely not worse off than his baseline, especially in the setting of a missed dose of AEDs and his recent surgery. Recommendations: 1)discontiue ceeg 2) continue AED regiment at this time:vimpat 200mg BID, keppra 2000mg BID, onfi 10mg BID, and depakote 750mg BID and 500mg qd 3)follow up vimpat 4)if mental status does not improve, low threshold to repeat CTH 5)please re-involve neurology if any new concerns arise Discussed with Attending Physician, Siddhartha Lawrence DO Neurology Resident Associated attestation - Baldev Carl MD - 03/17/2022 4:01 PM CDT Concur with resident note. Please see my addendum to the consult note that was written yesterday which I attested today. * Marie Street, OT - 03/17/2022 11:20 AM CDT [facility] Physical Medicine and Rehabilitation Occupational Therapy Initial Evaluation Note Patient: Mojgan Tabor [facility] Record Number: [id number] Date of : 1960 Age: [age] year old PPE worn by staff: gloves;mask - procedural;gown - disposable PPE worn by patient: gown - patient, clean;mask - procedural Tech: None; Cotx with PT d/t anticipated level of assist required Discharge Recommendation: Patient will benefit from multidisciplinary [...] Treat Activity Level: up ad daniela PRECAUTIONS: Weight Bearing Status: Lower Extremity Weight Bearing: NWB DIAGNOSIS: Patient Active Problem List: Seizure (CMS/HCC) [...] Sepsis without acute organ dysfunction (CMS/HCC) Bacteremia Pneumonia Ulcer of left foot (CMS/HCC) PAD (peripheral artery disease) (CMS/HCC) Protein calorie malnutrition (CMS/HCC) Past Medical History: Diagnosis Date ??? CVA (cerebral vascular accident) (CMS/HCC) ??? HTN (hypertension) ??? Seizure (CMS/HCC) SUBJECTIVE: Subjective: How are you doing PATIENT GOALS: Patient's Primary Concern: None stated by patient Home Situation: Type of Residence: [place] Equipment at Home: Wheelchair-Standard Prior Level of Functioning: Mobility: Wheelchair Bound;Transfers Only;With Physical Assistance Fallen Within 6 Mos: No Have Help at Home?: Yes, there is help at home now Who assists you at home?: Staff How often is assistance provided?: 20/12 Level of Help Sufficient?: Yes Oxygen at Home: No Activity at Home: W/C Bound Vision: No impairment Hearing Exceptions: No impairment Who manages medications?: staff Pain Assessment: Pt unable to vocalize pain, no s/s of pain this date Follow-up for pain: No follow-up for pain indicated and patient agreed to proceed with treatment OBJECTIVE: At start of therapy session, patient found in bed and call at side, sisters in room, pt connected to continuous EEG General Appearance: pleasant gentleman, agreeable to OT LDA: IV's: Peripheral line and Condom Catheter Edema: No edema noted Vitals: (*Assess the 3 levels of oxygen saturations both for room air and 02 unless rest on room air is 88% or less). Rest BP: 133/83 (99) HR: 112 Sp02 95 Room Air Ex/Gait/Activity Without 02 BP: 114/87 (96) sitting EOB HR: Sp02 Room Air Observations: Pt denied dizziness/light headedness Mental Status/Cognition: Attention Span: Difficulty attending to directions Memory: Decreased recall of biographical information;Decreased recall of precautions;Decreased recall of recent events Safety Judgement: Decreased awareness of need for safety Awareness of Errors: Decreased awareness of deficits;Assistance required to identify errors made;Assistance required to correct errors made Problem Solving: Assistance required to generate solutions;Assistance required to identify errors made;Assistance required to implement solutions UE ROM: RUE: PROM WFL; Unable to assess AROM, d/t pt unable to follow directions more than 25% of the time. LUE: PROM WFL; Unable to assess AROM, d/t pt unable to follow directions. Strength: RUE: not tested, d/t poor command follow LUE: not tested, d/t poor command follow UE Tone RUE: mild flexor tone noted in B shoulders LUE: mild flexor tone noted in B shoulders Coordination: deficits noted for serial opposition, deficits noted in FNF , deficits noted in rapidalternating movement UE Proprioception RUE: not tested LUE: not tested d/t poor command follow UE Sensation RUE: no complaints of numbness or tingling LUE: no complaints of numbness or tingling Perception: Inattention/Neglect: Cues to maintain midline in sitting;Cues to attend left visual field;Cues to attend to left side of body Initiation: Hand over hand to initiate tasks Motor Planning: Hand over hand to sequence tasks Visual/Motor Tracking: Unable to test secondary due to decreased visual attention Mobility: A gait belt and non-slip socks were used for all out of bed activity this date. Bed Mobility: Rolling: Maximal Assistance to Right Supine to Sit: Total Assistance;X 2 with HOB in semi-fowlers position Sit to Supine: Total Assistance;X 2 Transfers: Sit to Stand: Activity Does Not Occur Stand to Sit: Activity Does Not Occur Chair to Bed: Activity Does Not Occur Bed to Chair: Activity Does Not Occur Balance: Balance Scales/Tests Used: Sitting: Static/Dynamic;Standing: Static/Dynamic (Simultaneous filing. User may not have seen previous data.) Sitting - Dynamic: Poor (Simultaneous filing. User may not have seen previous data.) Standing - Static: Not tested Standing - Dynamic: Not tested Activities of Daily Living Feeding: Activity Does Not Occur Oral Facial Hygiene: Total Assistance Bathing: Total Assistance Upper Body Dressing: Total Assistance Lower Body Dressing: Total Assistance Toileting: Activity Does Not Occur Splint Issued/Checked: none ACTIVITY TOLERANCE: Patient's activity tolerance: poor TREATMENT / EDUCATION / INTERVENTIONS: While performing OT, Patient and other:Sisters were instructed in:functional mobility training, self-care training, cognitive retraining, energy conservation, pulmonary education, safety awareness/fall precautions , home exercise program, use of adaptive equipment, discharge planning, use of call light Presented to patient who demonstrates Poor understanding of instructions given. INFORMED CONSENT TO TREATMENT: Plan of care not given secondary to pt's cognitive status ASSESSMENT: Functional performance limited due to: limited activities of daily living, decreased functional mobility, decreased functional balance, decreased cognition , decreased safety awareness, upper extremity functional impairments, decreased endurance and activity tolerance, decreased coordination and decreased visual motor skills. Patient continues to benefit from skilled Occupational Therapy to achieve the following functional goals. Equipment Issued: gait belt. Short Term Goals: Goal Formation With patient/family Cognition: 1 step commands and 100% of the time Patient will perform grooming at edge of bed and with minimal assist Patient will perform supine to/from sit with minimal assist Pt will demonstrate fair sitting balance to complete ADL at EOB with Min assist Technical Mgr Goal(s): Patient to discharge to appropriate next level of inpatient care. Plan: Plan: ADL training Adaptive equipment training Cognitive retraining Cognitive stimulation Functional transfer training Functional balance [...] bed, with call light within reach, with family in room, with RN, Verito aware. * Ivy Crawford, PT - 03/17/2022 11:15 AM CDT [facility] Physical Medicine and Rehabilitation Physical Therapy Re-Evaluation Note Patient: Mojgan Tabor Med Record Number: [id number] Date of : 1960 Age: [age] [address] old Patient from [facility], new PT orders received. Re-eval indicated due to s/p L AKA; pt now with cEEG after RR called 03/16. PPE worn by staff: gloves;mask - procedural;gown - disposable PPE worn by patient: gown - patient, clean Co-treat with OT due to level of skilled assist required. Discharge Recommendation: Patient will benefit [...] Treat PRECAUTIONS: Weight Bearing Status: (NWB L LE (L AKA)) Activity Level: Up ad daniela DIAGNOSIS: Patient Active Problem List: Seizure (CMS/HCC) [...] Sepsis without acute organ dysfunction (CMS/HCC) Bacteremia Pneumonia Ulcer of left foot (CMS/HCC) PAD (peripheral artery disease) (CMS/HCC) Protein calorie malnutrition (CMS/HCC) Past Medical History: Diagnosis Date ??? CVA (cerebral vascular accident) (CMS/HCC) ??? HTN (hypertension) ??? Seizure (CMS/HCC) SUBJECTIVE: Subjective: I'm alright, how you doing? Pt agreeable to therapy. PATIENT GOALS: Patient's Primary Concern: No goals stated Home Situation: Type of Residence: [facility] Equipment at Home: Wheelchair-Standard Prior Level of Functioning: Mobility: Wheelchair Bound;Transfers Only;With Physical Assistance Fallen Within 6 Mos: No Have Help at Home?: Yes, there is help at home now Who assists you at home?: Staff Pain Assessment: Pain Rating Score #: (pt denies pain throughout session ) Follow-up for pain: No follow-up for pain indicated and patient agreed to proceed with treatment OBJECTIVE: At start of therapy session, patient found in bed. LDAs: IV's: Peripheral line and Catheter Edema: no edema noted in bilateral lower extremities and dressing to L LE stump Vitals: (*Assess the 3 levels of oxygen saturations both for room air and 02 unless rest on room air is 88% or less). Rest BP: ? 133/83 (99) HR: 112 Sp02 95 Room Air Ex/Gait/Activity Without 02 BP: 114/87 (96) sitting EOB HR: ?? Sp02 ?? Room Air Observations: Pt denied dizziness/light headedness Mental Status/Cognition: Level of Consciousness-Adult: Drowsy;Eyes Open Spontaneously Orientation Level: Oriented to Person;Disoriented to Place;Disoriented to Situation;Disoriented to Time Cognition: Processing-delayed;Judgement-decreased;Memory impairment-short term;Attention/concentration-decreased Attention Span: Attends with cues to redirect Following Commands: (Follows 25% 1 step commands with repeated cues Simultaneous filing. User may not have seen previous data.) ROM: RLE: PROM WFL LLE: L AKA, hip WFL Strength: RLE: 1/5 Unable to participate in further objective testing due to command follow. Mobility: A gait belt and non-slip socks were used for all out of bed activity this date. Bed Mobility: Rolling: Maximal Assistance to Right Supine to Sit: Total Assistance;X 2 with HOB in semi-fowlers position Sit to Supine: Total Assistance;X 2 Transfers: Sit to Stand: Activity Does Not Occur Balance: Balance Scales/Tests Used: Sitting: Static/Dynamic Sitting - Static: Poor + (pt initially with retropulsion, improved after hip adjustment but then began to lean to L) Sitting - Dynamic: Poor ACTIVITY TOLERANCE: Patient's activity tolerance: poor TREATMENT/INTERVENTIONS: evaluation, bed mobility training, balance activities, monitoring of vitals and cognitive stimulation Modified Milam: Current Modified Florentino Score: 5 EDUCATION: While performing PT, Patient was instructed in:functional mobility training, weight bearing status, safety awareness/fall precautions Presented to patient who demonstrates Questionable understanding of instructions given. INFORMED CONSENT TO TREATMENT: Plan of care is discussed but patient with questionable understanding. ASSESSMENT: Patient would benefit from additional Physical Therapy sessions to achieve the following functionalgoals to enhance independence. Short Term Goals: Goal Formation With patient Patient will perform bed mobility with maximal assist Patient will transfer sit to/from stand with maximal assist Patient will transfer bed to/from chair with maximal assist Intermediate Goal(s): Patient to discharge to appropriate next level of inpatient care. Equipment Issued: none Plan: Plan: Stair training Endurance training Bed mobility training Balance training Safety awareness If patient is discharged from the facility, this note serves as a discharge summary if further physical therapy visits did not occur. Refer to filed flowsheet for further details. Following therapy session, patient left in bed, with bed alarm on , with call light within reach, with family in room, with Verito HUGGINS aware. * Otto Mcrae MD - 03/17/2022 10:57 AM CDT [facility] Vascular Surgery Consult Note Name: Mojgan Tabor : 1960 Date of Service: 03/17/22 Attending Surgeon: Dr. Membreno Progress Note POD: 1 HPI: This is a 62 year old male with pmh of htn, CVA, HLD, alzheimer, and epilepsy brought to hospital after patient's family noted that he has worsening mental status at assisted. Patient was initially consulted to the vascular surgery service due to Left foot 2nd and 3rd digit dry gangrene. Plan was to follow up in clinic one week after discharge due to patient being unfit for surgical intervention. Patient was re-consulted to the vascular surgery service for re-evaluation of LLE wounds as possible cause of patient's bacteremia. SUBJECTIVE: Patient seen and evaluated on rounds this AM. Patient with no acute events overnight. Resting in bed this AM with no new complaints. Plan for wound evaluation tomorrow. Past Medical History: Diagnosis Date ??? CVA (cerebral vascular accident) (CMS/HCC) ??? HTN (hypertension) ??? Seizure (CMS/HCC) Surgical Hx: - Left AKA (03/15/22) No family history on file. Social History Socioeconomic History ??? Marital status: Single Spouse name: Not on file ??? Number of children: Not on file ??? Years of education: Not on file ??? Highest education level: Not on file Occupational History ??? Not on file Tobacco Use ??? Smoking status: Former Smoker Packs/day: 1.00 Years: 15.00 Pack years: 15.00 ??? Smokeless tobacco: Never Used Vaping Use ??? Vaping Use: Never used [...] Reactions ??? Clonazepam Psychiatric hallucinations No current outpatient medications on file. Data: Labs: Recent Labs Component Name 03/16/22 61803/14/22220203/14/22457 WBC 8.9 10.1 9.2 HGB 10.0* 11.4* 10.4* HCT 31.0* 33.4* 30.5* MCV 98.4* 94.4 94.4 Recent Labs Component Name 03/16/2261803/14/22220203/14/22457 NA 142 140 137 CL 107 104 107 CO2 29 28 26 BUN 12 9 11 CREATININE 0.69* 0.52* 0.49* CALCIUM 8.5 9.1 9.0 MAGNESIUM 1.6 1.8 1.7 PHOS 3.2 2.3* 2.3* Recent Labs Component Name 03/16/2261803/14/22220203/14/2245703/12/22 0158 03/11/22 1059 03/10/22 1147 03/09/22 0411 03/03/18 1745 01/30/18 1255 11/28/17 0455 10/14/17 1349 10/13/17 1526 PROT - - 5.8* - 5.9* - 6.7 - 6.9 - 7.0 8.4* ALB 1.6* 1.8* 1.7* - 1.9* - 2.4* - 3.7 - 3.9 4.8 TBILI - - 0.3 - 0.4 - 0.6 - 0.4 - 0.6 1.4* DBILI - - - - - - - - 0.2 - 0.2 0.4 AST - - 35* - 60* - 75* - 14 - 18 23 ALT - - 23 - 26 - 27 - 10 - 9 11 ALKPHOS - - 73 - 71 - 74 - 75 - 86 88 - = values in this interval not displayed. Recent Labs Component Name 03/11/22 1059 03/05/22 1110 02/25/21 1134 INR 1.2 1.0 1.1 No results for input(s): PHART, PO2ART, UGR6VER, BEART in the last 33088 hours. I/O last 3 completed shifts: In: 3363.7 [P.O.:85; I.V.:3278.7] Out: 1350 [Urine:1350] Imaging: CT HEAD WO CONTRAST Result Date: 03/11/2022 IMPRESSION: 1.No acute intracranial abnormality. 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 > Interpreting Provider: Latirce Ortiz MD on 1:[address] HEAD WO CONTRAST Result Date: 03/10/2022 IMPRESSION: 1.No acute intracranial hemorrhage, midline shift, or significant mass effect. > Interpreting Provider: Wojciech Neil MD on 03/10/2022 6:[address] CHEST ABDOMEN PELVIS W CONT [...] pelvis. > Dictated by Brandee Celestin MD (financial institution vice president). I, John Graham MD have personally reviewed and interpreted this examination/study. > Interpreting Provider: John Graham MD on 03/09/2022 9:27 AM Review of Systems: Unable to perform ROS due to patient's altered mental status Physical Exam: BP 142/77 Pulse (!) 110 Temp 97.3 ??F (36.3 ??C) Resp 18 Ht 6' (1.829 m) Wt 150 lb (68 kg) SpO2 96% Gen: NAD, incomprehensible speech HEENT: Head NC/AT. EOMI. Neck without deformity CV: RLE WWP Pulm: Non labored breathing on RA Abdomen: Soft, non distended. Extremities: No RLE edema. Left AKA with clean/dry dressing Neuro: ADORE Psych: Flat affect Assessment: This is a 62 year old male with left foot gangrene s/p Left AKA that was performed 03/15. Plan/Recommondations: - Pain control and wound care as needed - Continue HSQ DVT Prophylaxis - Plan for dressing change and wound evaluation tomorrow. Patient has been seen and discussed with my in night warehouse manager Dr. Koenig and attending physicianDr. Membreno. Otto Mcrae MD 03/17/2022 10:59 AM * Marcella Terrell - 03/17/2022 10:10 AM CDT Discharge Trench Digger received request from Lakesha Francis APRN to arrange follow- up appointment for Patient with Vascular. This bond writer called [phone] and spoke with Yana. Trench Digger was able to obtain follow-up appointment for Patient with Dr. Membreno on March at 10:00 am.No further follow-up needs from project scheduler indicated at this time. Marcella Terrell, Discharge Trench Digger 03/17/2022 * Ezio Sorto RD/ONI - 03/17/2022 9:39 AM CDT Nutrition Re-Assessment Brief Synopsis: Patient is dx with malnutrition; Specific criteria can be found in assessment below Nutrition Plan: Continue puree diet. Change to Ensure Plus High Protein (1.5 kcal) (350 kcal, 20 grams pro, 40 grams CHO) TID Assist 1:1 w/ meals, setup to tray, open containers, encourage PO intake. Recommendations to Physician: none. Comments: Pt scheduled for reassessment. CAFE MANAGER was paged yesterday for pt becoming unresponsive. Currently on puree diet, OIL FIELD PUMPER on board. NO PO intake documented x 48hrs. Per chart review, 0-100% of meal intake in the past 1 wk. Continue assist1:1 w/ meals and encourage PO intake. Last recorded BM 03/13, on miralax. Assessment: Med/Surg History and Clinical Diagnoses: a PMHx of Alzheimer's disease who is being evaluated for AMS. Pt reportedly presented with worsened mental status from baseline, along with tachycardia and fever. Pt labs reportedly demonstrate normal UA, elevated lactic acid, elevated troponin, and WBC over20,000. Diet order accuracy Current diet order: Pureed (4) (DYS 1) Current supplement order: Ensure HP TID Nutrition recommendation: alter/change nutrition order P.O.Intake for the past 48 hrs:No data recorded Supplement(s) Consumed- Last 48 hours None Food Allergies: No known food allergies GI Concerns: None Chewing/Swallowing: Dysphagia Pain affecting intake: No Admission weight: Weight: 150 lb (68 kg) (03/08/22 1359) Recent Weights/Methods 12/09/2021 1023 12/21/2021 1236 01/01/2022 0200 01/02/2022 0200 01/03/2022 0300 02/16/2022 1107 03/05/2022 1017 03/08/2022 1359 Weight: 131 lb (59.4 kg) 130 lb (59 kg) 143 lb 8.3 oz (65.1 kg) 142 lb 3.2 oz (64.5 kg) 139 lb 5.3 oz (63.2 kg) 131 lb (59.4 kg) 138 lb (62.6 kg) 150 lb (68 kg) Weight Method (Utilize Scales): -- Estimated Bedscale Bedscale Bedscale -- Stated Estimated Wt Comments: monitoring. Height: 6' (182.9 cm) IBW/lb (Calculated) Male: 178 , Laboratory values reviewed. Recent Labs Component Name 03/16/22 0619 03/14/22 2203 03/14/22 0458 03/12/22 0158 03/11/22 1059 03/10/22 1147 03/09/22 0411 BUN 12 9 11 - 7 - 15 CREATININE 0.69* 0.52* 0.49* - 0.50* - 0.63* NA 142 140 137 - 139 - 144 POTASSIUM 4.2 3.8 3.8 - 3.2* - 4.0 CL 107 104 107 - 104 - 100 CO2 29 28 26 - 30* - 25 GLUCOSE 85 108 79 - 103 - 134* CALCIUM 8.5 9.1 9.0 - 8.6 - 9.3 PROT - - 5.8* - 5.9* - 6.7 ALB 1.6* 1.8* 1.7* - 1.9* - 2.4* TBILI - - 0.3 - 0.4 - 0.6 ALKPHOS - - 73 - 71 - 74 ALT - - 23 - 26 - 27 AST - - 35* - 60* - 75* ANIONGAP 10 12 8 - 8 - 23* BCR 17 17 22 - 14 - 24* OSMOLALITY 293 289 282 - 286 - 301* AGRATIO - - 0.4* - 0.5* - 0.6* EGFR >90 >90 >90 - >90 - >90 - = values in this interval not displayed. Medications noted. Current Facility-Administered Medications Medication ??? 0.9% NaCl injection 3 mL And ??? 0.9% NaCl injection 1-10 mL ??? acetaminophen (Tylenol) tablet 1,000 mg ??? amLODIPine (Norvasc) tablet 5 mg ??? artificial tears ophthalmic solution 1 drop ??? aspirin chew tablet 81 mg ??? atorvastatin (Lipitor) tablet 40 mg ??? cefTRIAXone (Rocephin) 2,000 mg in 0.9% NaCl IV 50 mL IVPB ??? cloBAZam (Onfi) tablet 10 mg ??? divalproex sprinkle (Depakote Sprinkle) capsule 750 mg And ??? divalproex sprinkle (Depakote Sprinkle) capsule 500 mg ??? folic acid (Folvite) tablet 1 mg ??? heparin injection 5,000 Units ??? lacosamide (Vimpat) tablet 200 mg ??? levETIRAcetam (Keppra) tablet 2,000 mg ??? LORazepam (Ativan) injection 1 mg ??? metroNIDAZOLE (Flagyl) tablet 500 mg ??? oxyCODONE (Roxicodone) oral solution 5 mg Or ??? oxyCODONE (Roxicodone) oral solution 2.5 mg ??? perflutren lipid microsphere (Definity) injection 0.5 mL ??? polyethylene glycol 3350 (Miralax) packet 17 g ??? polyethylene glycol 3350 (Miralax) packet 17 g ??? tamsulosin (Flomax) capsule 0.4 mg ??? thiamine (Vitamin B-1) tablet 100 mg Skin/Wound: wound to foot Estimated Energy Needs: KCAL: 2039 (30kcal/kg ABW) Protein (g): 82-102 (1.2-1.5g/kg IBW) Fluid (ml): 1 ml/kcal Needs based on: Kcal/kg- (Comment) (based on ABW of 68kg) Recommended Access Route: PO Malnutrition Etiology: Malnutrition in the context of: chronic disease, Malnutrition Severity: Severe BMI: Body mass index is 20.34 kg/m??. GI Concerns: None Nutrition Focused Physical Assessment: Loss of Subcutaneous Fat Orbital: Severe Buccal: Severe Tricep: Severe Muscle Loss Temples (Temporalis Muscle): Severe Clavicles (Pectoralis & Deltoids): Severe Shoulders (Deltoids): Severe Interosseous Muscle: Severe Education needed: None Education Provided: Not appropriate (pt confused) Nutrition Care Process (1) Nutrition Diagnostic Statement: Malnutrition severity: : Severe related to:: inadequate protein-energy intake as evidenced by:: loss of muscle mass;loss of subcutaneous fat Nutrition Diagnostic Statement Progress: Nutrition problem continues Nutrition Intervention: Enteral nutrition:;Meals and snacks: Monitoring: PO, BM, labs, meds, weight Evaluation: Nutrition Goal: Total intake will meet estimated nutrient needs Nutrition Goal Timeframe: Throughout stay Nutrition Goal Progress: Continue with current goal Ascom # [id number] * Verito Denson RN - 03/17/2022 8:09 AM CDT Problem: Fall Risk Goal: Fall risk and fall related injury risk are minimized (interventions related to the fall risk can be found in the flowsheet documentation) Outcome: Progressing Problem: Skin Integrity Goal: Skin integrity is maintained or improved Outcome: Progressing Problem: Pain/Discomfort Goal: Patient uses pharmacological and non-pharmacological pain management strategies. Outcome: Progressing * Petra Fuentes MD - 03/17/2022 6:53 AM CDT Hospitalist Progress Note Subjective: No acute events overnight Patient was awake this morning, note oriented Patient is very sleepy this afternoon He had episodes of aspiration during monitored eating and drinking Objective: BP 145/81 Pulse 106 Temp 98.6 ??F (37 ??C) (Axillary) Resp 20 Ht 1.829 m (6') Wt 68 kg (150 lb) SpO2 99% Gen: NAD, mood appropriate HEENT: NCAT, EOMI, MMM, no JVD RESP: Clear to auscultation bilaterally CV: NI S1 and S2, No gallops, murmur GI: Soft and non tender, no rigidity and guarding, +BS, no HSM EXT: No edema. MAR reviewed today Relevant labs reviewed today. Creatinine Date Value Ref Range Status 03/16/2022 0.69 (L) 0.71 - 1.16 mg/dL Final Hemoglobin Date Value Ref Range Status 03/16/2022 10.0 (L) 12.0 - 17.6 g/dL Final Relevant imaging reviewed today Reviewed active orders today Assessment/Plan: Epilepsy, unspecified, not intractable, without status epilepticus (CMS/HCC) POA: Yes History of CVA (cerebrovascular accident) POA: Yes Hypertension POA: Yes Sepsis without acute organ dysfunction (CMS/HCC) POA: Unknown Bacteremia POA: Unknown Pneumonia POA: Unknown Ulcer of left foot (CMS/HCC) POA: Unknown PAD (peripheral artery disease) (CMS/HCC) POA: Unknown Protein calorie malnutrition (CMS/HCC) POA: Unknown 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 MSSA bacteremia Sepsis secondary to pneumonia Seizure, continue seizure precaution Encephalopathy Dysphagia Hyperlipidemia Alzheimer's disease Severe protein energy malnutrition History of CVA in 2014 Peripheral vascular disease Hypertension Heart failure with reduced ejection fraction On EEG Changed Keppra to IV as it is not safe for him to eat by mouth due to acute encephalopathy Vimpat, Depakote, Onfi IV formulations are not available to order at [facility], communicated with pharmacy Pending Vimpat and Onfi levels Ordered CT head Currently on Rocephin, Flagyl Appreciate neurology team recommendations Diet - NPO per speech therapy evaluation DVT PPx: Heparin Code Status: Full PT/OT consulted Fall & aspiration precautions Discussed with neurology team Discussed with pharmacy regarding conversation of oral antiepileptics to IV Discussed with care coordination team Discussed with patient's POA, his sister over the phone about patient's worsening mental status andcomplicated clinical course, their questions and concerns were addressed in detail Discussed patient at the multidisciplinary rounding Total time spent more than 45 minutes, more than 50% spent for coordinating patient care and counseling about treatment plan. Petra Fuentes MD, MRCP ([place]), FACP Head Operatorsupervisor fabrication and assembly Department of Internal Medicine Feel free to text page me through [employer]. * Sarah Rodriguez RN - 03/16/2022 10:55 PM CDT Problem: Fall Risk Goal: Fall risk and fall related injury risk are minimized (interventions related to the fall risk can be found in the flowsheet documentation) Outcome: Progressing Problem: Skin Integrity Goal: Skin integrity is maintained or improved Outcome: Progressing Problem: Nutrient: Malnutrition Goal: Total intake will meet estimated nutrient needs Outcome: Progressing Problem: Pain/Discomfort Goal: Patient exhibits reduced pain/discomfort as evidenced by pain scores Outcome: Progressing Goal: Patient uses pharmacological and non-pharmacological pain management strategies. Outcome: Progressing Goal: Patient verbalizes acceptable level of pain relief and ability to engage in desired activity. Outcome: Progressing Problem: Balance Goal: LTG - Patient will maintain balance to allow for safe mobility Outcome: Progressing Goal: LTG - Patient will demonstrate Intervention to enhance balance for safe completion of daily activities Outcome: Progressing Problem: Swallowing Goal: STG - Patient will tolerate recommended food and liquid consistencies without clinical signs and symptoms of aspiration Outcome: Progressing Goal: STG - Patient will follow recommended swallowing strategies Outcome: Progressing * Lakia Gu RN - 03/16/2022 7:30 PM CDT Patient care handoff given to ALFRED Smith assuming care of patient. RN aware of events which occurred and patient now connected to continuous EEG monitor. Patient care handoff complete. * Lakia Gu RN - 03/16/2022 12:05 PM CDT Patient family at bedside and updated on events which occurred. Patient remains drowsy after seizure meal and medications on hold until patient more alert. * Lakia Gu RN - 03/16/2022 10:10 AM CDT Called to patient room by therapy for change in patient condition. Upon arrival to patient room, patient not responsive to sternal rub and questionable seizure activity noted. Suction and oxygen available. Rapid response called and immediately to bedside.VSS and prn ativan obtained. Team aware, patient event happened prior to patient taking morning medications. Will continue to monitor patient. * Angelina Gould MSW - 03/16/2022 9:55 AM CDT SW continues to follow. Patient from [facility] but family is interested in patient going to [facility] as he has been there previously. Patient will need new PT/OT notes since surgery on 03/15. CLARITA Guzman 03/16/2022 [id number] * Annabelle Watkins OT - 03/16/2022 9:50 AM CDT [facility] Department of Physical Medicine & Rehabilitation Progress Note Patient: Mojgan Tabor Med Record Number: [id number] Date of : 1960 Age: [age] year old OT order received and chart reviewed. OT/PT approached patient for therapy evaluations; patient alert and conversational upon therapist arrival, states I'm feeling pretty good! . Upon attempting to initiate supine to sit transfer, patient began to become less responsive with R gaze deviation, RUE rigidity, no verbal responses to questions, and poor command following. Patient did withdraw from noxious stimulus to R foot, but unresponsive to sternal rub. Vitals assessed and RN notified, RN and allocations clerk came to bedside and initiated rapid response. OT will continue to follow and re-attempt evaluation as appropriate. * Ivy Crawford, PT - 03/16/2022 9:50 AM CDT [facility] Department of Physical Medicine & Rehabilitation Progress Note Patient: Mojgan Tabor [facility] Record Number: [id number] Date of : 1960 Age: [age] year old 03/16/22 1100 Missed Visit Missed Visit Other (Comment) Attempted to see patient for PT 09:50-10:10 however became unresponsive during treatment. Patient initially conversing with therapists and following commands then when initiating mobility pt's eyes drifted to the right and he stopped following commands. Vitals taken: BP = 128/80, HR = 80, O2= 96%. RN notified and arrived to room with charge rn, RR called. Cancel PT for this date, will follow up with pt 03/17. * Anna Membreno MD - 03/16/2022 7:56 AM CDT [facility] Vascular Surgery Consult Note Name: Mojgan Tabor : 1960 Date of Service: 03/16/22 Attending Surgeon: Dr. Membreno Progress Note POD: 1 HPI: This is a 62 year old male with pmh of htn, CVA, HLD, alzheimer, and epilepsy brought to hospital after patient's family noted that he has worsening mental status at assisted. Patient was initially consulted to the vascular surgery service due to Left foot 2nd and 3rd digit dry gangrene. Plan was to follow up in clinic one week after discharge due to patient being unfit for surgical intervention. Patient was re-consulted to the vascular surgery service for re-evaluation of LLE wounds as possible cause of patient's bacteremia. Patient underwent a left AKA yesterday (03/15). No acute events occurred overnight. Rounded on patient this morning and was resting comfortably and expressed no complaints at this time. Past Medical History: Diagnosis Date CVA (cerebral vascular accident) (CMS/HCC) HTN (hypertension) Seizure (CMS/HCC) Surgical Hx: - Left AKA (03/15/22) No family history on file. Social History Socioeconomic History Marital status: Single Spouse name: Not on file Number of children: Not on file Years of education: Not on file Highest education level: Not on file Occupational History Not on file Tobacco Use Smoking status: Former Smoker Packs/day: 1.00 Years: 15.00 Pack years: 15.00 Smokeless tobacco: Never Used Vaping Use Vaping Use: Never used Substance and Sexual Activity Alcohol use: No Comment: last drink 2015 Drug use: No Comment: occasional Sexual activity: Not Currently Other Topics Concern Not on file Social History Narrative Not on file Social Determinants of Health Financial Resource Strain: Not on file Food Insecurity: No Food Insecurity Worried About Running Out of Food in the Last Year: Never true Ran Out of Food in the Last Year: Never true Transportation Needs: Not on file Physical Activity: Not on file Stress: Not on file Social Connections: Not on file Intimate Partner Violence: Not on file Housing Stability: Not on file Allergies Allergen Reactions Clonazepam Psychiatric hallucinations No current outpatient medications on file. Data: Labs: Recent Labs Component Name 03/16/2261803/14/22220203/14/22457 WBC 8.9 10.1 9.2 HGB 10.0* 11.4* 10.4* HCT 31.0* 33.4* 30.5* MCV 98.4* 94.4 94.4 Recent Labs Component Name 03/16/2261803/14/22220203/14/22457 NA 142 140 137 CL 107 104 107 CO2 29 28 26 BUN 12 9 11 CREATININE 0.69* 0.52* 0.49* CALCIUM 8.5 9.1 9.0 MAGNESIUM 1.6 1.8 1.7 PHOS 3.2 2.3* 2.3* Recent Labs Component Name 03/16/2261803/14/22220203/14/2245703/12/22 0158 03/11/22 1059 03/10/22 1147 03/09/22 0411 03/03/18 1745 01/30/18 1255 11/28/17 0455 10/14/17 1349 10/13/17 1526 PROT - - 5.8* - 5.9* - 6.7 - 6.9 - 7.0 8.4* ALB 1.6* 1.8* 1.7* - 1.9* - 2.4* - 3.7 - 3.9 4.8 TBILI - - 0.3 - 0.4 - 0.6 - 0.4 - 0.6 1.4* DBILI - - - - - - - - 0.2 - 0.2 0.4 AST - - 35* - 60* - 75* - 14 - 18 23 ALT - - 23 - 26 - 27 - 10 - 9 11 ALKPHOS - - 73 - 71 - 74 - 75 - 86 88 - = values in this interval not displayed. Recent Labs Component Name 03/11/22 1059 03/05/22 1110 02/25/21 1134 INR 1.2 1.0 1.1 No results for input(s): PHART, PO2ART, KLM1FWF, BEART in the last 36226 hours. I/O last 3 completed shifts: In: 5638.7 [P.O.:60; I.V.:5578.7] Out: 2750 [Urine:2700; Blood Loss:50] Imaging: CT HEAD WO CONTRAST Result Date: 03/11/2022 [...] Wojciech Neil MD on 03/10/2022 6:[address] CHEST ABDOMEN PELVIS W CONT [...] pelvis. > Dictated by Brandee Celestin MD (financial institution vice president). I, John Graham MD have personally reviewed and interpreted this examination/study. > Interpreting Provider: John Graham MD on 03/09/2022 9:27 AM Review of Systems: Unable to perform ROS due to patient's altered mental status Physical Exam: BP 128/82 Pulse 101 Temp 98.2 ??F (36.8 ??C) (Axillary) Resp 18 Ht 6' (1.829 m) Wt 150 lb(68 kg) SpO2 91% Gen: NAD, incomprehensible speech HEENT: Head NC/AT. EOMI. Neck without deformity CV: RLE WWP Pulm: Non labored breathing on RA Abdomen: Soft, non distended. Extremities: No RLE edema. Left AKA with clean/dry dressing Neuro: ADORE Psych: Flat affect Assessment: This is a 62 year old male s/p Left AKA that was performed yesterday. Post-op day 1, patient appears in no pain and is afebrile. WBC at 8.9 and Hgb 10 (from 11.4), will continue to monitor. Dressing on the LLE is clean and dry. Will evaluate wound and change dressing on 03/18. Plan/Recommondations: - Resume modified consistency diet - Monitor CBC for infection and anemia - Pain control and wound care as needed - Continue HSQ DVT Prophylaxis Patient has been seen and discussed with my in night warehouse manager Dr. Koenig and attending physicianDr. Membreno. Otto Mcrae MD 03/16/2022 7:56 AM Attending/Teaching Physician Documentation I have seen and examined the patient with the resident, independently reviewed lab and imaging results and I agree with the findings and plan of care as documented by the resident. Date of Service isdate of resident signature in resident note * Petra Fuentes MD - 03/16/2022 7:28 AM CDT Hospitalist Progress Note Subjective: No acute events overnight Rapid response team was called this morning as patient was sleepy and was not arousable Nursing team was concerned for possible seizure? No reported jerky movement per nursing staff during that moment After 15 minutes, patient was slowly arousable and was able to answer some of my questions Objective: BP 128/82 Pulse 101 Temp 98.2 ??F (36.8 ??C) (Axillary) Resp 18 Ht 1.829 m (6') Wt 68 kg (150 lb) SpO2 91% Gen: NAD, mood appropriate HEENT: NCAT, EOMI, MMM, no JVD RESP: Clear to auscultation bilaterally CV: NI S1 and S2, No gallops, murmur GI: Soft and non tender, no rigidity and guarding, +BS, no HSM EXT: No edema. MAR reviewed today Relevant labs reviewed today. Creatinine Date Value Ref Range Status 03/16/2022 0.69 (L) 0.71 - 1.16 mg/dL Final Hemoglobin Date Value Ref Range Status 03/16/2022 10.0 (L) 12.0 - 17.6 g/dL Final Relevant imaging reviewed today Reviewed active orders today Assessment/Plan: Epilepsy, unspecified, not intractable, without status epilepticus (CMS/HCC) POA: Yes History of CVA (cerebrovascular accident) POA: Yes Hypertension POA: Yes Sepsis without acute organ dysfunction (CMS/HCC) POA: Unknown Bacteremia POA: Unknown Pneumonia POA: Unknown Ulcer of left foot (CMS/HCC) POA: Unknown PAD (peripheral artery disease) (CMS/HCC) POA: Unknown Protein calorie malnutrition (CMS/HCC) POA: Unknown 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 MSSA bacteremia Sepsis secondary to pneumonia Seizure, continue seizure precaution Encephalopathy Dysphagia Hyperlipidemia Alzheimer's disease Severe protein energy malnutrition History of CVA in 2014 Peripheral vascular disease Hypertension Heart failure with reduced ejection fraction On EEG Continue Vimpat 200 mg b.i.d., Keppra 2 g b.i.d., Onfi 10 mg b.i.d., Depakote 750 mg b.i.d. and 500mg q.d. per neurology team recommendations Pending Vimpat and Onfi levels Currently on vanc, Rocephin, Flagyl Will DC vancomycin per ID recommendations Diet - modified consistency diet per speech therapy evaluation DVT PPx: Heparin Code Status: Full PT/OT consulted Fall & aspiration precautions Discussed with neurology team Discussed with rapid response team Discussed with ID team Discussed with pharmacy Discussed with care coordination team Discussed patient at the multidisciplinary rounding Total time spent more than 38 minutes, more than 50% spent for coordinating patient care and counseling about treatment plan. Petra Fuentes MD, MRCP (), FACP Head Operatorsupervisor fabrication and assembly Department of Internal Medicine Feel free to text page me through [employer]. * Sarah Rodriguez RN - 03/16/2022 3:38 AM CDT Problem: Fall Risk Goal: Fall risk and fall related injury risk are minimized (interventions related to the fall risk can be found in the flowsheet documentation) Outcome: Progressing Problem: Skin Integrity Goal: Skin integrity is maintained or improved Outcome: Progressing Problem: Nutrient: Malnutrition Goal: Total intake will meet estimated nutrient needs Outcome: Progressing Problem: Pain/Discomfort Goal: Patient exhibits reduced pain/discomfort as evidenced by pain scores Outcome: Progressing Goal: Patient uses pharmacological and non-pharmacological pain management strategies. Outcome: Progressing Goal: Patient verbalizes acceptable level of pain relief and ability to engage in desired activity. Outcome: Progressing Problem: Balance Goal: LTG - Patient will maintain balance to allow for safe mobility Outcome: Progressing Goal: LTG - Patient will demonstrate Intervention to enhance balance for safe completion of daily activities Outcome: Progressing Problem: Swallowing Goal: STG - Patient will tolerate recommended food and liquid consistencies without clinical signs and symptoms of aspiration Outcome: Progressing Goal: STG - Patient will follow recommended swallowing strategies Outcome: Progressing * Lauren Schuler RN - 03/15/2022 4:20 PM CDT Problem: Skin Integrity Goal: Skin integrity is maintained or improved Outcome: Progressing Problem: Pain/Discomfort Goal: Patient exhibits reduced pain/discomfort as evidenced by pain scores Outcome: Progressing Goal: Patient uses pharmacological and non-pharmacological pain management strategies. Outcome: Progressing Goal: Patient verbalizes acceptable level of pain relief and ability to engage in desired activity. Outcome: Progressing * Mira Valdez MD - 03/15/2022 2:53 PM CDT [facility] Infectious Diseases Progress Note Admitted on: 03/08/2022 1:54 PM Hospital stay: Day 7 Room: 610/01 Attending: Blair Mojica MD Reason for ID f/u: MSSA bacteremia Brief History and Hospital Course: Mojgan Tabor??is a 62??year old?? male??with PMH??of??HTN, HLD, PVD,??CVA (2014), prior head injury (from a fall?), refractory epilepsy,??Alzheimer's (early onset),??alcohol abuse, and??cervical osteoarthritis,??who??presented to [facility] from SNF??on 03/08/2022 for??worsening mentation.??Family came to visit??the patient??and noticed the patient was not??as??alert. Patient isnormally A&O x 2 at baseline.? Upon arrival to the ED, febrile Tmax 101.6, leukocytosis WBC of 20.8, lactic acid 3.0. Blood culture was sent, then started on ceftriaxone and IV vancomycin. CT C/A/P showed dependent left basilar consolidation with mild tree-in-bud opacities, and mild posterior right upper lobe tree-in-bud opacities, findings suggestive of??aspiration pneumonia; also revealed multiple bilateral pulmonary nodules, representing??multifocal infection??vs??adenocarcinoma. Noted??chronic skin change to left foot, particularly the??2nd and 3rd toes??with??darker??discoloration and??ulcer??to the??medial aspect of the 1st MTP with erythema and edema.??Vascular surgery was consulted,??multilevel ABIs and arterial duplex??was performed, showing??severe peripheral vascular disease??of left??lower extremity, and??left superficial femoral artery significant stenosis. On 03/11/2022, ID consulted for MSSA bacteremiawith uncertain source. ?? 03/15 s/p left above knee amputation. SUBJECTIVE & INTERVAL HISTORY: Patient seen and examined. No fever/leukocytosis Current Abx:vancomycin, ceftriaxone and flagyl Inpatient Medications ??? 0.9% NaCl 3 mL Intracatheter q8h ??? amLODIPine 5 mg Oral AT BEDTIME ??? aspirin 81 mg Oral QDAY ??? atorvastatin 40 mg Oral QDAY ??? cefTRIAXone 2,000 mg Intravenous q24h ??? cloBAZam 10 mg Oral BID ??? divalproex DR 1,000 mg Oral BID ??? folic acid 1 mg Oral QDAY ??? gadobutrol Intravenous Contrast - Once ??? heparin 5,000 Units Subcutaneous TID ??? lacosamide 200 mg Oral BID ??? levETIRAcetam 2,000 mg Oral BID ??? metroNIDAZOLE 500 mg Oral q8h ??? perflutren lipid microsphere 0.5 mL Intravenous intra-Procedure multiple ??? tamsulosin 0.4 mg Oral QDAY ??? thiamine 100 mg Oral QDAY ??? vancomycin 1,250 mg Intravenous q8h ??? vancomycin (VANCOCIN) IV dose per pharmacy Does not apply DIRECTED PRN Medications ??? SALINE LOCK, INSERT AND MAINTAIN AND 0.9% NaCl AND 0.9% NaCl ??? acetaminophen ??? artificial tears ??? polyethylene glycol 3350 OBJECTIVE: Vital Signs: BP 92/60 Pulse 77 Temp 97.4 ??F (36.3 ??C) (Oral) Resp 16 Ht 6' (1.829 m) Wt 150 lb (68 kg) SpO2 94% Temp (24hrs), Av.4 ??F (36.9 ??C), Min:97.4 ??F (36.3 ??C), Max:99 ??F (37.2 ??C) I/O: Intake/Output Summary (Last 24 hours) at 03/15/2022 1453 Last data filed at 03/15/2022 1116 Gross per 24 hour Intake 2300 ml Output 2750 ml Net -450 ml Physical Exam: General: sleeping s/p OR Lungs: Clear to auscultation bilaterally Heart: RRR, S1, S2 normal, no murmur, click, rub or gallop Abdomen: Soft, non-distended, non-tender, +BS Extremities: left above knee amputation Skin: Skin color, texture, turgor normal. Lines: LABS CBC: Recent Labs Component Name 03/14/22 2203 03/14/22 0458 03/13/22 0419 WBC 10.1 9.2 10.7* RBC 3.54* 3.23* 3.84* HGB 11.4* 10.4* 12.2 HCT 33.4* 30.5* 37.4 MCV 94.4 94.4 97.4 BMP: Recent Labs Component Name 03/14/22 2203 03/14/228 03/13/22 0419 03/12/22 0158 03/11/22 1059 03/10/22 1147 03/09/22 0411 NA 140 137 141 - 139 - 144 CL 104 107 108* - 104 - 100 CO2 28 26 25 - 30* - 25 BUN 9 11 14 - 7 - 15 CREATININE 0.52* 0.49* 0.61* - 0.50* - 0.63* ALB 1.8* 1.7* 2.0* - 1.9* - 2.4* PROT - 5.8* - - 5.9* - 6.7 - = values in this interval not displayed. estimated creatinine clearance is 143.5 mL/min (A) (by C-G formula based on SCr of 0.52 mg/dL (L)). Recent Labs Component Name 03/14/228 03/11/22 1059 03/09/22 0411 ALT 23 26 27 AST 35* 60* 75* ALKPHOS 73 71 74 TBILI 0.3 0.4 0.6 MICROBIOLOGY: Blood culture 03/08-03/09 MSSA Susceptibility Staphylococcus aureus JELLY Clindamycin 0.25 ug/mL Susceptible Doxycycline <=0.5 ug/mL Susceptible Gentamicin <=0.5 ug/mL Susceptible Inducible Clindamycin Resistance NEG ug/mL Neg Linezolid 2 ug/mL Susceptible Oxacillin 0.5 ug/mL Susceptible Tetracycline <=1 ug/mL Susceptible Trimethoprim-sulfamethoxazole <=10 ug/mL Susceptible Vancomycin 1 ug/mL Susceptible HISTOPATHOLOGY: 03/15 pending IMAGING & PROCEDURE: Pertinent images independently reviewed; report in chart. MRI foot left 03/15 IMPRESSION: 1. No abnormal marrow signal in the left foot to indicate acute osteomyelitis. 2. No loculated fluid collection in the left foot. TTE 03/11 Summary The left ventricle is normal size. Left ventricular systolic function is mildly decreased with an ejection fraction by Biplane Method of Discs of 47 %. Left ventricular segmental wall motion is abnormal, please see wall motion graphic. The left ventricular diastolic function is abnormal (Grade I), consistent with low normal left ventricle filling pressures. No significant valvular abnormalities. ASSESSMENT & RECOMMENDATIONS: MSSA bacteremia -Per previous ID note: Source potentially from left foot ulcer; pneumonia could be another source but unable to collect sputum. -S/p amputation today but no OR culture was done, so please touch base with path if we can specimenfrom path for cultures? Path is pending. No OM on MRI. -If the path is negative then will need total 14 days of treatment for bacteremia , can be deescalate to cefazolin to complete the course radha. If no remnant of cellulitis on amputation site. -Please take photos of wound changes in the chart. Aspiration PNA Has been treated with IV vancomycin, ceftriaxone and flagyl ,plan for 7 days in total. But will need to complete bacteremia treatment as above. We will continue to follow and monitor the patient. Thank you for allowing us to participate in thecare of this patient. Primary team: MED (Plan discussed with the team) >35 minutes spent on the care of this patient. > 50% was spent in counseling and coordinationof care that included the patient and the primay team. Mira Valdez MD MPH Infectious Diseases (Team 2) * Riky Williamson MD - 03/15/2022 12:13 PM CDT Vascular Surgery Plan of Care S/p Left above knee amputation. -OK to resume modified consistency diet. -NWB LLE. -Vascular Surgery to remove dressing on POD#3 -OK for HSQ DVT prophylaxis. Riky Williamson MD [facility] Vascular Surgery 03/15/2022 12:15 PM * Annabelle Watkins OT - 03/15/2022 11:45 AM CDT [facility] Department of Physical Medicine & Rehabilitation Progress Note Patient: Mojgan Tabor Med Record Number: [id number] Date of : 1960 Age: [age] year old 03/15/22 1105 Therapy on Hold Therapy on Hold Surgery;Chart Reviewed;New Order Required for Therapy Please reorder as indicated post-op * Meredith Ray PT - 03/15/2022 11:44 AM CDT [facility] Department of Physical Medicine & Rehabilitation Patient: Mojgan Tabor [facility] Record Number: [id number] Date of : 1960 Age: [age] year old 03/15/22 1100 Therapy on Hold Therapy on Hold Surgery;New Order Required for Therapy * Dina Thomas OIL FIELD PUMPER - 03/15/2022 10:00 AM CDT [facility] Department of Physical Medicine & Rehabilitation Progress Note Patient: Mojgan Tabor [facility] Record Number: [id number] Date of : 1960 Age: [age] year old 03/15/22 1000 Therapy on Hold Therapy on Hold Surgery;Chart Reviewed;New Order Required for Therapy Speech-Language Pathologist * Rickie Shelton Jr., PharmD - 03/15/2022 9:46 AM CDT Vancomycin Per Pharmacy - Follow-Up Note Subjective Mojgan Tabor is a 62 year old male receiving vancomycin dosed per pharmacy. Indication for anti-infective therapy: suspected infection Site of anti-infective therapy: Lower respiratory. Goal trough 15-20 mcg/mL. MRSA resp swab + Blood + MSSA - believed source is left foot ulcer - undergoing amputation 03/15 ID following for recs Objective Day of treatment: 8 Current dosing regimen: 1250 mg, q 8 hr. Weight: 68 kg (150 lb) Estimated Creatinine Clearance: 143.5 mL/min (A) (by C-G formula based on SCr of 0.52 mg/dL (L)). Ht Readings from Last 1 Encounters: 10/10/22 6' (1.829 m) Recent Labs Component Name 03/15/22 0638 03/14/22 2203 03/14/22 0458 03/13/22 2250 03/13/22 0419 03/12/22 0158 03/11/22 2339 CREATININE - 0.52* 0.49* - 0.61* - - WBC - 10.1 9.2 - 10.7* - - VANCTROUGH 15.1 - - 16.9 - - 12.5 - = values in this interval not displayed. Radiocontrast within 72 hours The 3 most recent administrations since 03/12/2022 are shown below each listed medication. Other Order Route Dose Action Date gadobutrol (Gadavist) injection Intravenous 6 mL $ Given - Contrast 03/15/2022 Vancomycin Administrations from [facility] (last 72 hours) Date/Time Action Medication Dose Rate 03/15/22 0641 $ New Bag vancomycin (Vancocin) 1,250 mg in 250 mL NaCl IVPB Premix 1,250 mg 200 mL/hr 03/14/22 2202 $ New Bag vancomycin (Vancocin) 1,250 mg in 250 mL NaCl IVPB Premix 1,250 mg 200 mL/hr 03/14/22 1550 $ New Bag vancomycin (Vancocin) 1,250 mg in 250 mL NaCl IVPB Premix 1,250 mg 200 mL/hr 03/14/22 0654 $ New Bag vancomycin (Vancocin) 1,250 mg in 250 mL NaCl IVPB Premix 1,250 mg 200 mL/hr 03/13/22 2258 $ New Bag vancomycin (Vancocin) 1,250 mg in 250 mL NaCl IVPB Premix 1,250 mg 200 mL/hr 03/13/22 1609 $ New Bag vancomycin (Vancocin) 1,250 mg in 250 mL NaCl IVPB Premix 1,250 mg 200 mL/hr 03/13/22 0826 $ New Bag vancomycin (Vancocin) 1,250 mg in 250 mL NaCl IVPB Premix 1,250 mg 200 mL/hr 03/13/22 0038 $ New Bag vancomycin (Vancocin) 1,250 mg in 250 mL NaCl IVPB Premix 1,250 mg 200 mL/hr 03/12/22 1706 $ New Bag vancomycin (Vancocin) 1,250 mg in 250 mL NaCl IVPB Premix 1,250 mg 200 mL/hr 03/12/22 1032 $ New Bag vancomycin (Vancocin) 1,250 mg in 250 mL NaCl IVPB Premix 1,250 mg 200 mL/hr Assessment Target trough:15-20 mcg/mL The vancomycin serum level reported above was drawn 8.5 hours after the previous dose was administered. Using pharmacokinetic calculations, the extrapolated true trough is approximately 16 mcg/mL Patient's trough level is within the therapeutic range on the current regimen. Ke = 0.12 t1/2 = 6h Vd = 51L S.Cr is stable at this time. Plan Dosing: Will continue current regimen. Monitoring: Will obtain a vancomycin trough level prior to the dose on 03/18 at 0600 and adjust regimen if appropriate. Will continue to monitor patient's renal function. F/u ID plan for vanc duration as likely 7-10 days sufficient for LRTI for MRSA coverage F/u ID plan for left foot osteo if pathology post amputation clean as may be able to do MSSA coverage only for bacteremia course Please contact the [facility] pharmacy department ([phone]) with any questions. Rickie Shelton Jr., PharmD 03/15/2022 9:39 AM Resources: Vancomycin Protocol * Anna Membreno MD - 03/15/2022 7:49 AM CDT Plan for left aka today in operating room * Anna Membreno MD - 03/15/2022 7:40 AM CDT [facility] Vascular Surgery Consult Note Name: Mojgan Tabor : 1960 Date of Service: 03/15/22 Attending Surgeon: Dr. Membreno Reason for Consult: Left Foot wound HPI: This is a 62 year old male with pmh of htn, CVA, HLD, alzheimer, and epilepsy brought to hospital after patient's family noted that he has worsening mental status at assisted. Patient was initially consulted to the vascular surgery service due to Left foot 2nd and 3rd digit dry gangrene. Plan was to follow up in clinic one week after discharge due to patient being unfit for surgical intervention. Patient was re consulted to the vascular surgery service for re-evaluation of LLE wounds as possible cause of patient's bacteremia. Past Medical History: Diagnosis Date CVA (cerebral vascular accident) (CMS/HCC) HTN (hypertension) Seizure (CMS/HCC) No past surgical history on file. No family history on file. Social History Socioeconomic History Marital status: Single Spouse name: Not on file Number of children: Not on file Years of education: Not on file Highest education level: Not on file Occupational History Not on file Tobacco Use Smoking status: Former Smoker Packs/day: 1.00 Years: 15.00 Pack years: 15.00 Smokeless tobacco: Never Used Vaping Use Vaping Use: Never used Substance and Sexual Activity Alcohol use: No Comment: last drink 2015 Drug use: No Comment: occasional Sexual activity: Not Currently Other Topics Concern Not on file Social History Narrative Not on file Social Determinants of Health Financial Resource Strain: Not on file Food Insecurity: No Food Insecurity Worried About Running Out of Food in the Last Year: Never true Ran Out of Food in the Last Year: Never true Transportation Needs: Not on file Physical Activity: Not on file Stress: Not on file Social Connections: Not on file Intimate Partner Violence: Not on file Housing Stability: Not on file Allergies Allergen Reactions Clonazepam Psychiatric hallucinations No current outpatient medications on file. Data: Labs: Recent Labs Component Name 03/14/22220203/14/2245703/13/22418 WBC 10.1 9.2 10.7* HGB 11.4* 10.4* 12.2 HCT 33.4* 30.5* 37.4 MCV 94.4 94.4 97.4 Recent Labs Component Name 03/14/22220203/14/2245703/13/22418 NA 140 137 141 CL 104 107 108* CO2 28 26 25 BUN 9 11 14 CREATININE 0.52* 0.49* 0.61* CALCIUM 9.1 9.0 9.3 MAGNESIUM 1.8 1.7 2.1 PHOS 2.3* 2.3* 2.8 Recent Labs Component Name 03/14/22220203/14/2245703/13/2241814/22 0158 03/11/22 1059 03/10/22 1147 03/09/22 0411 03/03/18 1745 01/30/18 1255 11/28/17 0455 10/14/17 1349 10/13/17 1526 PROT - 5.8* - - 5.9* - 6.7 - 6.9 - 7.0 8.4* ALB 1.8* 1.7* 2.0* - 1.9* - 2.4* - 3.7 - 3.9 4.8 TBILI - 0.3 - - 0.4 - 0.6 - 0.4 - 0.6 1.4* DBILI - - - - - - - - 0.2 - 0.2 0.4 AST - 35* - - 60* - 75* - 18 23 ALT - 23 - - 26 - 27 - 10 - 9 11 ALKPHOS - 73 - - 71 - 74 - 75 - 86 88 - = values in this interval not displayed. Recent Labs Component Name 03/11/22 1059 03/05/22 1110 02/25/21 1134 INR 1.2 1.0 1.1 No results for input(s): PHART, PO2ART, [id number], BEART in the last 94929 hours. I/O last 3 completed shifts: In: 440 [P.O.:440] Out: 3100 [Urine:3100] Imaging: CT HEAD WO CONTRAST Result Date: 03/11/2022 [...] Wojciech Neil MD on 03/10/2022 6:[address] CHEST ABDOMEN PELVIS W CONT [...] pelvis. > Dictated by Brandee Celestin MD (financial institution vice president). I, John Graham MD have personally reviewed and interpreted this examination/study. > Interpreting Provider: John Graham MD on 03/09/2022 9:27 AM Review of Systems: Unable to perform ROS due to patient's altered mental status Physical Exam: BP 159/99 Pulse 107 Temp 99 ??F (37.2 ??C) (Oral) Resp 18 Ht 6' (1.829 m) Wt 150 lb (68 kg) SpO2 97% Gen: NAD, incomprehensible speech HEENT: Head NC/AT. EOMI. Neck without deformity CV: Limbs WWP, Doppler signal present on DP/PT arteries Pulm: Non labored breathing on RA Abdomen: Soft, non distended. Extremities: No BLE edema. Left medial great toe wound without surrounding erythema, or callor or induration. Left foot 2nd 3rd toe dry gangrene MSK: No obvious trauma Skin:Left medial great toe wound without surrounding erythema, or callor or induration. Left foot 2nd 3rd toe dry gangrene, Neuro: ADORE Psych: Flat affect Assessment: This is a 62 year old male with what appears to be a developing dry ischemia of his left 2nd and 3rd toes and a small patch of skin on the dorsum of his foot. Plan/Recommondations: - OR today, 03/15, for left BKA vs AKA. - NPO since midnight. - Site marked - Consent obtained Patient has been seen and discussed with my in night warehouse manager Dr. Koenig and attending physicianDr. Membreno. Otto Mcrae MD 03/15/2022 7:40 AM Attending/Teaching Physician Documentation I have seen and examined the patient with the resident, independently reviewed lab and imaging results and I agree with the findings and plan of care as documented by the resident. Date of Service isdate of resident signature in resident note * Blair Mojica MD - 03/15/2022 7:24 AM CDT Hospitalist Progress Note Mojgan Tabor is a 62 year old male who is admitted for AMS Subjective: Patient interactive, following commands, speech quite. Noted vascular plans for ampuation Objective: Blood pressure 159/99, pulse 107, temperature 99 ??F (37.2 ??C), temperature source Oral, resp. rate 18, height 1.829 m (6'), weight 68 kg (150 lb), SpO2 97 %. Gen: NAD, interactive HEENT: NCAT, EOMI, dry MM RESP: No wheezes appreciated CV: Tachycardia GI: Soft and non tender. +BS, no HSM EXT: No edema. Neuro: follows commands, limited movement Skin: wound noted on left lower extremity, doesn't appear acutely infected, pulses dopplerable MAR reviewed Relevant labs reviewed K 3.8 Creatinine 0.52 Mag 1.7 AST 35 Wbc 10.1 hgb 11.4 plt 295 Relevant imaging reviewed MRI read pending Assessment/Plan: 1) Sepsis - suspected secondary to pneumonia - MSSA bacteremia - Blood cultures were positive on 03/08 and 03/09 (but 1/2 for each) - MRSA swab positive - continue vancomycin/ceftriaxone/flagyl for suspected pneumonia/bacteremia - ID consulted - CT CAP reviewed - ECHO without vegetation - FU blood cultures 2) Hx of refractory epilepsy - appreciate neurology input - CT head negative - continue keppra, depakote, clobazam, lacosamide - discussed EEG and valproic acid level - continue current regimen 3) Encephalopathy - suspect related to infection, continue antibiotics - monitor for stool and urine retention - appreciate neurology input on seizures 4) dysphagia - appreciate speech input - now on puree diet 5) PAD/Ulcer of left foot - Sore on the left foot, great toe meets ball of the foot. - multilevel ABIs and arterial duplex - concerning for significant PVD - continue Local wound care with betadine painting of toes and foot dorsum - patient is to follow up with outpatient vascular - consult to wound care ?? - appreciate vascular assistance - FU MRI of left foot - noted plan for amputation 6) Severe Protein calorie malnutrition - appreciate nutrition assistance 7) Hx of CVA - asa, statin 8) HTN - norvasc 9) HFmrEF - not in acute exacerbation - echo appears similar to prior - will work to optimize regimen prior to DC, hold off in setting of acute infection LDA: peripheral IV Diet: puree Antibiotic end date: to soon to tell Consults: Neurology DVT prophylaxis: held for OR Code status: Full Code Disposition: continue inpatient care at this time Blair Mojica MD [facility] Medicine 03/15/2022 Feel free to text page me through [employer], login [employer] Current Meds ??? 0.9% NaCl 3 mL Intracatheter q8h ??? amLODIPine 5 mg Oral AT BEDTIME ??? aspirin 81 mg Oral QDAY ??? atorvastatin 40 mg Oral QDAY ??? cefTRIAXone 2,000 mg Intravenous q24h ??? cloBAZam 10 mg Oral BID ??? divalproex DR 1,000 mg Oral BID ??? folic acid 1 mg Oral QDAY ??? gadobutrol Intravenous Contrast - Once ??? heparin 5,000 Units Subcutaneous TID ??? lacosamide 200 mg Oral BID ??? levETIRAcetam 2,000 mg Oral BID ??? metroNIDAZOLE 500 mg Oral q8h ??? perflutren lipid microsphere 0.5 mL Intravenous intra-Procedure multiple ??? tamsulosin 0.4 mg Oral QDAY ??? thiamine 100 mg Oral QDAY ??? vancomycin 1,250 mg Intravenous q8h ??? vancomycin (VANCOCIN) IV dose per pharmacy Does not apply DIRECTED Summary of Hospital Problem List Epilepsy, unspecified, not intractable, without status epilepticus (CMS/HCC) POA: Yes History of CVA (cerebrovascular accident) POA: Yes Hypertension POA: Yes Sepsis without acute organ dysfunction (CMS/HCC) POA: Unknown Bacteremia POA: Unknown Pneumonia POA: Unknown Ulcer of left foot (CMS/HCC) POA: Unknown PAD (peripheral artery disease) (CMS/HCC) POA: Unknown Protein calorie malnutrition (CMS/HCC) POA: Unknown * Phyllis Rangel RN - 03/14/2022 7:29 PM CDT Problem: Fall Risk Goal: Fall risk and fall related injury risk are minimized (interventions related to the fall risk can be found in the flowsheet documentation) Outcome: Progressing * Burke Salmon MD - 03/14/2022 7:22 PM CDT Vascular Surgery Plan of Care Note time found in the operating room schedule to 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 patient will be scheduled. left below-knee amputation, possible above- knee amputation. -npo@mn; sips with meds -consent to be obtained -site to be marked -type and screen Burke Salmon MD Division of Vascular Surgery, PGY-3 03/14/2022 7:23 PM * Lauren Schuler RN - 03/14/2022 11:19 AM CDT Problem: Fall Risk Goal: Fall [...] engage in desired activity. Outcome: Progressing * Blair Mojica MD - 03/14/2022 7:28 AM CDT Hospitalist Progress Note Mojgan Tabor is a 62 year old male who is admitted for AMS Subjective: Patient without complaint, more conversational, improved appetite per family. Objective: Blood pressure 136/71, pulse 101, temperature 97 ??F (36.1 ??C), resp. rate 20, height 1.829 m (6'), weight 68 kg (150 lb), SpO2 98 %. Gen: NAD, interactive HEENT: NCAT, EOMI, dry MM RESP: Course breath sounds CV: Tachycardia GI: Soft and non tender. +BS, no HSM EXT: No edema. Neuro: follows commands, limited movement, appears contracted. Skin: wound noted on left lower extremity, doesn't appear acutely infected, pulses dopplerable MAR reviewed Relevant labs reviewed K 3.8 Creatinine 0.49 Mag 1.7 AST 35 Wbc 9.2 hgb 10.4 plt 157 Relevant imaging reviewed ECHO The left ventricle is normal size. Left ventricular systolic function is mildly decreased with an ejection fraction by Biplane Method of Discs of 47 %. Left ventricular segmental wall motion is abnormal, please see wall motion graphic. The left ventricular diastolic function is abnormal (Grade I), consistent with low normal left ventricle filling pressures. No significant valvular abnormalities. Assessment/Plan: 1) Sepsis - suspected secondary to pneumonia - MSSA bacteremia - Blood cultures were positive on 03/08 and 03/09 (but 1/2 for each) - MRSA swab positive - continue vancomycin/ceftriaxone/flagyl for suspected pneumonia/bacteremia - ID consulted - CT CAP reviewed - ECHO without vegetation - FU blood cultures 2) Hx of refractory epilepsy - appreciate neurology input - CT head negative - continue keppra, depakote, clobazam, lacosamide - discussed EEG and valproic acid level - continue current regimen 3) Encephalopathy - suspect related to infection, continue antibiotics - monitor for stool and urine retention - appreciate neurology input on seizures 4) dysphagia - appreciate speech input - now on puree diet 5) PAD/Ulcer of left foot - Sore on the left foot, great toe meets ball of the foot. - multilevel ABIs and arterial duplex - concerning for significant PVD - continue Local wound care with betadine painting of toes and foot dorsum - patient is to follow up with outpatient vascular - consult to wound care ?? 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 0.9% NaCl 3 mL Intracatheter q8h ??? amLODIPine 5 mg Oral AT BEDTIME ??? aspirin 81 mg Oral QDAY ??? atorvastatin 40 mg Oral QDAY ??? cefTRIAXone 2,000 mg Intravenous q24h ??? cloBAZam 10 mg Oral BID ??? divalproex DR 1,000 mg Oral BID ??? folic acid 1 mg Oral QDAY ??? heparin 5,000 Units Subcutaneous TID ??? lacosamide 200 mg Oral BID ??? levETIRAcetam 2,000 mg Oral BID ??? magnesium sulfate 2 g Intravenous Once ??? metroNIDAZOLE 500 mg Oral q8h ??? perflutren lipid microsphere 0.5 mL Intravenous intra-Procedure multiple ??? sodium - potassium phosphates 2 tablet Oral Once ??? tamsulosin 0.4 mg Oral QDAY ??? thiamine 100 mg Oral QDAY ??? vancomycin 1,250 mg Intravenous q8h ??? vancomycin (VANCOCIN) IV dose per pharmacy Does not apply DIRECTED Summary of Hospital Problem List Epilepsy, unspecified, not intractable, without status epilepticus (CMS/HCC) POA: Yes History of CVA (cerebrovascular accident) POA: Yes Hypertension POA: Yes Sepsis without acute organ dysfunction (CMS/HCC) POA: Unknown Bacteremia POA: Unknown Pneumonia POA: Unknown Ulcer of left foot (CMS/HCC) POA: Unknown PAD (peripheral artery disease) (CMS/HCC) POA: Unknown Protein calorie malnutrition (CMS/HCC) POA: Unknown * Leigh Mancia MD - 03/14/2022 7:06 AM CDT [facility] Infectious Diseases Progress Note Admitted on: 03/08/2022 1:54 PM Hospital stay: Day 6 Room: 610/01 Attending: Blair Mojica MD Reason for ID consultation: MSSA bacteremia Brief History and Hospital Course: Mojgan Tabor??is a 62 year old?? male??with PMH of HTN, HLD, PVD, CVA (2015), priorhead injury (from a fall?), refractory epilepsy, Alzheimer's (early onset), alcohol abuse, and cervical osteoarthritis, who presented to [facility] from SNF on 03/08/2022 for worsening mentation. Family came to visit the patient and noticed the patient was not??as??alert. Patient is normally A&O x 2 at baseline. ?? Upon arrival to the ED, febrile Tmax 101.6, leukocytosis WBC of 20.8, lactic acid 3.0. Blood culture was sent, then started on ceftriaxone and IV vancomycin. CT C/A/P showed dependent left basilar consolidation with mild tree-in-bud opacities, and mild posterior right upper lobe tree-in-bud opacities, findings suggestive of aspiration pneumonia; also revealed multiple bilateral pulmonary nodules,representing multifocal infection vs adenocarcinoma. Noted chronic skin change to left foot, particularly the 2nd and 3rd toes with darker discoloration and ulcer to the medial aspect of the 1st MTP with erythema and edema. Vascular surgery was consulted, multilevel ABIs and arterial duplex was performed, showing severe peripheral vascular disease of left lower extremity, and left superficial femoral artery significant stenosis. On 03/11/2022, ID consulted for MSSA bacteremia with uncertain source. SUBJECTIVE & INTERVAL HISTORY: Patient seen and examined. Remains not much interactive. Afebrile, leukocytosis resolved. Current Abx IV vancomycin (03/08 - ) Ceftriaxone (03/08 - )?? Metronidazole (03/11 - ) ?? Prior Abx None Inpatient Medications ??? 0.9% NaCl 3 mL Intracatheter q8h ??? amLODIPine 5 mg Oral AT BEDTIME ??? aspirin 81 mg Oral QDAY ??? atorvastatin 40 mg Oral QDAY ??? cefTRIAXone 2,000 mg Intravenous q24h ??? cloBAZam 10 mg Oral BID ??? divalproex DR 1,000 mg Oral BID ??? folic acid 1 mg Oral QDAY ??? heparin 5,000 Units Subcutaneous TID ??? lacosamide 200 mg Oral BID ??? levETIRAcetam 2,000 mg Oral BID ??? metroNIDAZOLE 500 mg Oral q8h ??? perflutren lipid microsphere 0.5 mL Intravenous intra-Procedure multiple ??? tamsulosin 0.4 mg Oral QDAY ??? thiamine 100 mg Oral QDAY ??? vancomycin 1,250 mg Intravenous q8h ??? vancomycin (VANCOCIN) IV dose per pharmacy Does not apply DIRECTED lactated ringers, , Last Rate: 75 mL/hr at 03/14/22 0012 PRN Medications ??? SALINE LOCK, INSERT AND MAINTAIN AND 0.9% NaCl AND 0.9% NaCl ??? acetaminophen ??? artificial tears ??? LORazepam ??? polyethylene glycol 3350 OBJECTIVE: Vital Signs: BP 136/71 Pulse 101 Temp 97 ??F (36.1 ??C) Resp 20 Ht 6' (1.829 m) Wt 150 lb (68 kg) SpO2 98% Temp (24hrs), Av.9 ??F (36.6 ??C), Min:97 ??F (36.1 ??C), Max:98.5 ??F (36.9 ??C) I/O: Intake/Output Summary (Last 24 hours) at 03/14/2022 0706 Last data filed at 03/14/2022 0403 Gross per 24 hour Intake 333 ml Output 1250 ml Net -917 ml Physical Exam: General:??No distress, nonverbal, cachectic Head:??Normocephalic, atraumatic Eyes: PERRLA, anicteric sclerae Nose:??No deformity Mouth and Throat:??Poor dfentition Neck:??No??JVD Lungs: Clear to auscultation bilaterally Heart: RRR, S1, S2, no murmur Abdomen: Soft, non-distended, non-tender, +BS Extremities: B/l UEs appears contrastce. ??LLE: chronic skin change to left foot, particularly the 2nd and 3rd toes with darker discoloration and ulcer to the medial aspect of the 1st MTP with erythema and edema. Skin:??No rash Neurologic: Follow commands Lines: PIV LABS CBC: Recent Labs Component Name 03/14/22 0458 03/13/22 0419 03/12/22 0158 WBC 9.2 10.7* 12.4* RBC 3.23* 3.84* 3.55* HGB 10.4* 12.2 11.3* HCT 30.5* 37.4 33.4* MCV 94.4 97.4 94.1 BMP: Recent Labs Component Name 03/13/22 0419 03/12/22 0158 03/11/22 1059 03/10/22 1147 03/09/22 0411 03/08/22 1455 NA 141 139 139 - 144 143 CL 108* 106 104 - 100 102 CO2 25 26 30* - 25 29 BUN 14 10 7 - 15 21 CREATININE 0.61* 0.55* 0.50* - 0.63* 0.87 ALB 2.0* 1.9* 1.9* - 2.4* 2.7* PROT - - 5.9* - 6.7 7.3 - = values in this interval not displayed. estimated creatinine clearance is 122.3 mL/min (A) (by C-G formula based on SCr of 0.61 mg/dL (L)). Recent Labs Component Name 03/11/22 1059 03/09/221 03/08/22 1455 ALT 26 27 26 AST 60* 75* 74* ALKPHOS 71 74 84 TBILI 0.4 0.6 0.4 ?? 01/30/18 15:01 09/05/18 22:52 HIV Antigen/Antibody 1 & 2 Non-reactive Non-reactive Hepatitis C Antibody Non-reactive ? MICROBIOLOGY: Blood culture: 03/08/2022: 1/2 Growth of Staphylococcus aureus??(MSSA) 03/09/2022: 1/2 Growth of Staphylococcus aureus??(MSSA) ?? Staphylococcus aureus ?? JELLY ?? Clindamycin 0.25 ug/mL Susceptible ?? Doxycycline <=0.5 ug/mL Susceptible ?? Gentamicin <=0.5 ug/mL Susceptible ?? Inducible Clindamycin Resistance NEG ug/mL Neg ?? Linezolid 2 ug/mL Susceptible ?? Oxacillin 0.5 ug/mL Susceptible ?? Tetracycline <=1 ug/mL Susceptible ?? Trimethoprim-sulfamethoxazole <=10 ug/mL Susceptible ?? Vancomycin 1 ug/mL Susceptible 03/11/2022: x 2 No growth 03/12/2022: x 2 No growth ?? Urine culture: 03/08/2022: No growth (<100 CFU/mL) MRSA DNA by PCR, nasal (03/09/2022): Detected HISTOPATHOLOGY: None at this admission. IMAGING & PROCEDURE: XR FOOT LEFT 3VW OR MORE (03/08/2022): No evidence of acute fracture or dislocation. No cortical erosions or focal mineralization to suggest osteomyelitis. However radiographs are insensitive for detection of early osteomyelitis. A soft tissue defect with adjacent swelling is noted medial to the first metatarsal head. The joint spaces are maintained. There is diffuse bony mineralization. Vascular calcifications are noted. ?? CT CHEST ABDOMEN PELVIS W CONT (03/08/2022): 1. Dependent left basilar consolidation with mild tree-in-bud opacities. Mild posterior right upperlobe tree-in-bud opacities. This concerning for aspiration pneumonia. 2. Multiple bilateral pulmonary nodules as detailed above including a 1.8 cm spiculated nodule. This may represent a multifocal infection although adenocarcinoma can have a similar appearance. 3 months follow-up is recommended. 3. No acute abnormality in the abdomen or pelvis. ?? LUIZ (03/09/2022): Abnormal left lower extremity arterial physiologic study consistent with severe peripheral vasculardisease measuring 0.3 0.5. Normal right lower extremity arterial physiologic study. ?? VAS LEFT ARTERIAL DUPLEX LE (03/09/2022): Eleveated velocities in the mid left superficial femoral artery suggestive of a hemodynamically significant stenosis. ?? CT HEAD WO CONTRAST (03/11/2022): 1. No acute intracranial abnormality. 2. Complete opacification of the right maxillary sinus with extension of low- density material into the posterior nasal cavity through the widened ostium, likely representing antrochoanal polyp. ?? TTE (03/11/2022): The left ventricle is normal size. Left ventricular systolic function is mildly decreased with an ejection fraction by Biplane Method of Discs of 47%. Left ventricular segmental wall motion is abnormal, please see wall motion graphic. The left ventricular diastolic function is abnormal (Grade I), consistent with low normal left ventricle filling pressures. No significant valvular abnormalities. ASSESSMENT & RECOMMENDATIONS: 1. Staphylococcus aureus??(MSSA) bacteremia: ?? BCx positive 03/08 and 03/09, Follow repeat BCx 03/11 and 03/12 to ensure no growth. Source potentially from left foot ulcer; pneumonia could be another source but unable to collect sputum. ?? TTE w no significant valvular abnormalities. ?? On IV vancomycin and ceftriaxone for now due to #2 and #3. 2. Left foot ulcer in the setting of severe PVD of left lower extremity: ?? Concern for osteomyelitis. Awaiting MRI of left foot. ?? Ideally bone bopsy by vascular surgery to confirm the diagnosis, and send culture to guide Abx treatment. Given severe PVD, vascular surgery was consulted, patient is considered a poor candidate for re-vascularization or any surgical management, which may end up in AKA. ?? If MRI shows evidence of osteomyelitis, will need 6 weeks of ABx therapy. 3. HAP with aspiration pneumonia: ?? Patient with increased risk for aspiration: AMS, dysphagia, seizure disorder. ?? CT Chest with dependent left basilar consolidation and opacities. ?? Continue IV vancomycin and ceftriaxone, and add metronidazole for anaerobe coverage. Duration for at least 7 to 14 days, based on clinical improvement. 4. Multiple bilateral pulmonary nodules: multifocal infection vs malignancy related. Recommend repeat image after Abx therapy and follow up with PCP. 5. Acute on chronic encephalopathy. 6. Dysphagia. 7. Hx of refractory epilepsy. 8. Severe Protein calorie malnutrition. 9. Renal function: Estimated Creatinine Clearance: 122.3 mL/min (A) (by C-G formula based on SCr of0.61 mg/dL (L)). Plan/Recommendations: - Continue IV vancomycin (goal trough 15-20), ceftriaxone 2 g IV q24h, and metronidazole 500 mg PO q8h. - Follow repeat blood cultures until final. - Follow MRI of left foot w contrast for evaluation of osteomyelitis. If MRI supports the diagnosisof osteomyelitis, will need 6 weeks of ABx therapy. - Regarding multiple bilateral pulmonary nodules, recommend repeat CT chest after Abx therapy and follow up with PCP. We will continue to follow and monitor the patient. Thank you for allowing us to participate in thecare of this patient. Primary team: MED3 >35 minutes spent on the care of this patient. > 50% was spent in counseling and coordinationof care that included the patient and the primay team. Leigh Mancia M.D. Infectious Diseases (Team 2) Pager [phone] * Phyllis Rangel RN - 03/14/2022 2:10 AM CDT Patient have left upper extremity cold ,pulse present and other vitals stable,Dr Musa Gruber notified. * Nevaeh Valera, [facility] - 03/13/2022 11:30 PM CDT Vancomycin Per Pharmacy - Follow-Up Note Subjective Mojgan Tabor is a 62 year old male receiving vancomycin dosed per pharmacy. Indication for anti-infective therapy: suspected infection Site of anti-infective therapy:Bone/Lower respiratory. Goal trough 15-20 mcg/mL. Objective Day of treatment: 6 Current dosing regimen: 1250 mg, q 8 hr. Weight: 68 kg (150 lb) Estimated Creatinine Clearance: 122.3 mL/min (A) (by C-G formula based on SCr of 0.61 mg/dL (L)). Ht Readings from Last 1 Encounters: 03/08/22 6' (1.829 m) Recent Labs Component Name 03/13/22 2250 03/13/22 0419 03/12/22 0158 03/11/22 2339 03/11/22 1059 03/10/22 1147 CREATININE - 0.61* 0.55* - 0.50* 0.53* WBC - 10.7* 12.4* - 11.7* 15.4* VANCTROUGH 16.9 - - 12.5 - 7.7* Vancomycin Administrations from JUL (last 72 hours) Date/Time Action Medication Dose Rate 03/13/22 2258 $ New Bag vancomycin (Vancocin) 1,250 mg in 250 mL NaCl IVPB Premix 1,250 mg 200 mL/hr 03/13/22 1609 $ New Bag vancomycin (Vancocin) 1,250 mg in 250 mL NaCl IVPB Premix 1,250 mg 200 mL/hr 03/13/22 0826 $ New Bag vancomycin (Vancocin) 1,250 mg in 250 mL NaCl IVPB Premix 1,250 mg 200 mL/hr 03/13/22 0038 $ New Bag vancomycin (Vancocin) 1,250 mg in 250 mL NaCl IVPB Premix 1,250 mg 200 mL/hr 03/12/22 1706 $ New Bag vancomycin (Vancocin) 1,250 mg in 250 mL NaCl IVPB Premix 1,250 mg 200 mL/hr 03/12/22 1032 $ New Bag vancomycin (Vancocin) 1,250 mg in 250 mL NaCl IVPB Premix 1,250 mg 200 mL/hr 03/11/22 2352 $ New Bag vancomycin (Vancocin) 1,000 mg in 0.9% NaCl IV 250 mL IVPB 1,000 mg 250 mL/hr 03/11/22 1619 $ New Bag vancomycin (Vancocin) 1,000 mg in 0.9% NaCl IV 250 mL IVPB 1,000 mg 250 mL/hr 03/11/22 0502 $ New Bag vancomycin (Vancocin) 1,000 mg in 0.9% NaCl IV 250 mL IVPB 1,000 mg 250 mL/hr Assessment Target trough:15-20 mcg/mL The vancomycin serum level reported above was drawn 6.7 hours after the previous dose was administered. Using pharmacokinetic calculations, the extrapolated true trough is approximately 14.2 mcg/mL Patient's trough level is within the therapeutic range on the current regimen. Ke = 0.1320 hr-1 t1/2 = 5.2 hrs Vd = 51 L S.Cr is stable at this time. Plan Dosing: Will continue current regimen. Monitoring: Will obtain a vancomycin trough level prior to the 5th dose on 03/15/22 at 0600 and adjust regimen if appropriate. Will continue to monitor patient's renal function. Please contact the [facility] pharmacy department ([phone]) with any questions. Nevaeh Valera RPH 03/13/2022 11:29 PM Resources: Vancomycin Protocol * Phyllis Rangel RN - 03/13/2022 8:20 PM CDT Problem: Pain/Discomfort Goal: Patient exhibits reduced pain/discomfort as evidenced by pain scores Outcome: Progressing * Nevaeh Valera RPH - 03/13/2022 6:13 PM CDT Vanc Day 6 Mojgan Tabor is a 62 y.o. male on vancomycin for: Indication for anti-infective therapy: suspected infection Site of anti-infective therapy: Lower Respiratory. Goal trough 15-20 mcg/mL Administration times on JUL updated to reflect time of last dose given Dose hung before lab could be drawn Updated vancomycin trough to be drawn 03/13 @ 2300 Will f/u and reassess current regimen Nevaeh Valera RPH [facility] Department of Pharmacy * Ciara Jaramillo SLP - 03/13/2022 1:10 PM CDT [facility] Physical Medicine and Rehabilitation Bedside Swallow Assessment Patient: Mojgan Tabor [facility] Record Number: [id number] Date of : 1960 Age: [age] year [...] Sepsis without acute organ dysfunction (CMS/HCC) Bacteremia Pneumonia Ulcer of left foot (CMS/HCC) PAD (peripheral [...] team members. PPE: PPE worn by staff: eye protection;gloves;mask - N95 PPE worn by patient: gown - patient, clean Impressions: Pt was seen for repeat swallow evaluation; pt's nurse reported that pt had demonstrated swallowing difficulties during meals and sometimes with intake of medications. Family present at bedside. Pt accepted trials of ice chips, sips of water via spoon and pinched straw, and spoonsful ofpuree. Pt demonstrated increased oral transit time with likely delayed initiation of swallow. No overt signs of aspiration were observed, however pt often required multiple verbal and tactile cues tocomplete oral transit and swallow. Discussed swallow/feeding strategies with family who verbalized understanding. Upon discussion with family, recommend Puree (4)/DYS1 Consistency at this time as it will not require prolonged mastication and may decrease pt's fatiguewith po intake. Pt will also likely benefit from liquid nutritional supplements (Ensure). Recommendations: Diet Liquids Recommendation: Thin/ Thin (0) Diet Solids Recommendation: Pureed Dys 1/ Pureed (4) Recommended Form of Meds: Crushed;With puree (Family reported that pt may like pudding more than applesauce.) Compensatory Swallowing Strategies: 90 Degrees elevation for all oral intake;Full supervision with meals;One to one assist with meals;Verbal cueing required to use;Small bites/sips;Eat/Feed slowly;Feed patient only when alert Recommended Tests/Consults: Recommendations: Dysphagia Treatment Discharge Recommendations: Speech therapy is recommended to improve swallow function. SUBJECTIVE: Patient Goals: Pt was nonverbal and did not state goals. Pain Assessment: Pain Rating Score #: (No indicated pain.) Follow-up for pain: No follow-up for pain indicated and patient agreed to proceed with treatment OBJECTIVE: Level of Consciousness: Pt opened eyes and awoke for therapy session. At end of session, pt closed eyes and indicated that he did not want any more po intake. Pt was nonverbal but vocalized x1 in response to yes/no question. Positioning: Upright in bed; head leaning to right side against pillow Respiratory Status: room air Oral/Motor: Dentition: (Fair) Oral Hygiene : Within Functional Limits Labial/Facial: Within Functional Limits Tongue: (Lingual movements to command were not completed.) Vocal Quality: (Decreased loudness) Controls Secretions: Yes Swallow Trials: Ice chips: Presentation: Spoon-Assisted Oral: Increased Anterior to Posterior Transit;Delayed Initiation Pharyngeal: No signs/symptoms of aspiration Thin Liquid: Presentation: Spoon-Assisted;Straw-Assisted Oral: Delayed Initiation Pharyngeal: Within Functional LImits (No overt signs of aspiration.) Puree: Presentation: Spoon-Assisted Oral: Delayed Initiation;Increased Anterior to Posterior Transit (Pt held in oral cavity for up to 30 seconds despite multiple verbal and tactile cues.) Pharyngeal: Delayed Swallow Solid: Not assessed due to safety concern; pt holding bolus in oral cavity and requiring cues to swallow. 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 Family verbalized Good understanding of instructions given. Nurse contacted regarding results of swallow evaluation and recommendations. INFORMED CONSENT TO TREATMENT: Plan of care is discussed but patient with questionable understanding. Family present and agreed toproceed. Short Term Goals Patient will tolerate recommended food and liquid consistencies without clinical signs of aspiration., Patient will follow recommended swallowing strategies. Technical Mgr Goal (s): Patient to discharge to appropriate next level of inpatient care. Plan: Speech therapy for dysphagia treatment. * Zulma Mansfield RN - 03/13/2022 7:57 AM CDT Problem: Nutrient: Malnutrition Goal: Total intake will meet estimated nutrient needs Outcome: Not Progressing * Blair Mojica MD - 03/13/2022 7:29 AM CDT Hospitalist Progress Note Mojgan Tabor is a 62 year old male who is admitted for AMS Subjective: Patient afebrile. Opened eyes to verbal commands, will say one or two words Objective: Blood pressure 139/86, pulse 94, temperature 97.9 ??F (36.6 ??C), temperature source Oral, resp. rate 16, height 1.829 m (6'), weight 68 kg (150 lb), SpO2 99 %. Gen: NAD, interactive HEENT: NCAT, EOMI, dry MM RESP: Course breath sounds CV: Tachycardia GI: Soft and non tender. +BS, no HSM EXT: No edema. Neuro: follows commands, limited movement, appears contracted. Skin: wound noted on left lower extremity, doesn't appear acutely infected, pulses dopplerable MAR reviewed Relevant labs reviewed K 4.0 Creatinine 0.61 Mag 2.1 Wbc 10.7 hgb 12.2 plt 180 Relevant imaging reviewed ECHO The left ventricle is normal size. Left ventricular systolic function is mildly decreased with an ejection fraction by Biplane Method of Discs of 47 %. Left ventricular segmental wall motion is abnormal, please see wall motion graphic. The left ventricular diastolic function is abnormal (Grade I), consistent with low normal left ventricle filling pressures. No significant valvular abnormalities. Assessment/Plan: 1) Sepsis - suspected secondary to pneumonia - MSSA bacteremia - Blood cultures were positive on 03/08 and 03/09 (but 1/2 for each) - MRSA swab positive - continue vancomycin/ceftriaxone/flagyl for suspected pneumonia/bacteremia - ID consulted - CT CAP reviewed - ECHO without vegetation - FU blood cultures 2) Hx of refractory epilepsy - appreciate neurology input - CT head negative - continue keppra, depakote, clobazam, lacosamide - discussed EEG and valproic acid level - continue current regimen 3) Encephalopathy - suspect related to infection, continue antibiotics - monitor for stool and urine retention - appreciate neurology input on seizures 4) dysphagia - appreciate speech input - cleared for easy to swallow, but nursing felt minced and moist may work better. - repeat speech eval 5) PAD/Ulcer of left foot - Sore on the left foot, great toe meets ball of the foot. - multilevel ABIs and arterial duplex - concerning for significant PVD - continue Local wound care with betadine painting of toes and foot dorsum - patient is to follow up with outpatient vascular - consult to wound care ?? 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 0.9% NaCl 3 mL Intracatheter q8h ??? amLODIPine 5 mg Oral AT BEDTIME ??? aspirin 81 mg Oral QDAY ??? atorvastatin 40 mg Oral QDAY ??? cefTRIAXone 2,000 mg Intravenous q24h ??? cloBAZam 10 mg Oral BID ??? divalproex DR 1,000 mg Oral BID ??? folic acid 1 mg Oral QDAY ??? heparin 5,000 Units Subcutaneous TID ??? lacosamide 200 mg Oral BID ??? levETIRAcetam 2,000 mg Oral BID ??? metroNIDAZOLE 500 mg Oral q8h ??? perflutren lipid microsphere 0.5 mL Intravenous intra-Procedure multiple ??? tamsulosin 0.4 mg Oral QDAY ??? thiamine 100 mg Oral QDAY ??? vancomycin 1,250 mg Intravenous q8h ??? vancomycin (VANCOCIN) IV dose per pharmacy Does not apply DIRECTED Summary of Hospital Problem List Epilepsy, unspecified, not intractable, without status epilepticus (CMS/HCC) POA: Yes History of CVA (cerebrovascular accident) POA: Yes Hypertension POA: Yes Sepsis without acute organ dysfunction (CMS/HCC) POA: Unknown Bacteremia POA: Unknown Pneumonia POA: Unknown Ulcer of left foot (CMS/HCC) POA: Unknown PAD (peripheral artery disease) (CMS/HCC) POA: Unknown Protein calorie malnutrition (CMS/HCC) POA: Unknown * Annabelle Watkins, OT - 03/12/2022 2:14 PM CDT [facility] Physical Medicine and Rehabilitation Occupational Therapy Initial Evaluation Note Patient: Mojgan Tabor [facility] Record Number: [id number] Date of : 1960 Age: [age] year old PPE worn by staff: gloves;gown - disposable;mask - procedural PPE worn by patient: socks - clean;gown - patient, clean Tech: n/a. Patient seen as cotx with PT due to anticipated level of assist, skilled needs Discharge Recommendation: Patient will benefit from multidisciplinary [...] and Treat Activity Level: up ad daniela DIAGNOSIS: Patient Active Problem List: Seizure (CMS/HCC) [...] Sepsis without acute organ dysfunction (CMS/HCC) Bacteremia Pneumonia Ulcer of left foot (CMS/HCC) PAD (peripheral artery disease) (CMS/HCC) Protein calorie malnutrition (CMS/HCC) Past Medical History: Diagnosis Date ??? CVA (cerebral vascular accident) (CMS/HCC) ??? HTN (hypertension) ??? Seizure (CMS/HCC) SUBJECTIVE: Subjective: I need some covers PATIENT GOALS: Patient's Primary Concern: None stated at time of tx Home Situation: Type of Residence: [facility] ([facility]) Equipment at Home: Wheelchair-Standard Prior Level of Functioning: Mobility: Wheelchair Bound;Transfers Only;With Physical Assistance Have Help at Home?: Yes, there is help at home now Who assists you at home?: Staff Pain Assessment: Pain Rating Score #: 0 Follow-up for pain: No follow-up for pain indicated and patient agreed to proceed with treatment OBJECTIVE: At start of therapy session, patient found in bed General Appearance: Adult male, resting supine in bed, NAD LDA: IV's: Peripheral line Edema: No edema noted Mental Status/Cognition: Level of Consciousness-Adult: Drowsy Orientation Level: Oriented to Person;Oriented to Place Cognition: Processing-delayed;Follows Commands-inconsistent Attention Span: Attends with cues to redirect Following Commands: Follows one step commands with repetition/cues UE ROM: RUE: AROM WFL LUE: AROM WFL Strength: RUE: gross grasp, elbow flexion/extension 4-/5. Shoulder ~3+/5 all planes LUE: Grossly ~2/5 UE Tone RUE: minimal moderate flexor tone - fluctuating with activity LUE: no abnormal tone noted Coordination: intact serial opposition for bilateral hands Perception: Inattention/Neglect: Cues to maintain midline in sitting;Cues to maintain midline in standing;Cues to attend left visual field Initiation: Cues to initiate tasks Visual/Motor Tracking: (unable to track. does alert to stimulus and locate with increased time) Mobility: A gait belt and non-slip socks were used for all out of bed activity this date. Bed Mobility: Rolling: Maximal Assistance to Left;Maximal Assistance to Right Supine to Sit: Maximum Assistance;X 2 with HOB in semi-fowlers position Sit to Supine: X 2;Maximum Assistance Transfers: Sit to Stand: Activity Does Not Occur Stand to Sit: Activity Does Not Occur Balance: Sitting - Static: Poor + Sitting - Dynamic: Poor Activities of Daily Living Feeding: Activity Does Not Occur Oral Facial Hygiene: Moderate Assistance (wash face at EOB) Bathing: Maximal Assistance (lower body bathing) Upper Body Dressing: Maximal Assistance (don gown, tie/fasten) Lower Body Dressing: Maximal Assistance (don B socks) Toileting: Maximal Assistance;Assistance x 2 (roll L and R, complete pericare at bed level) Splint Issued/Checked: none ACTIVITY TOLERANCE: Patient's activity tolerance: fair TREATMENT / EDUCATION / INTERVENTIONS: While performing OT, Patient was instructed in:functional mobility training, self-care training, safety awareness/fall precautions , discharge planning Presented to patient who demonstrates Questionable understanding of instructions given. INFORMED CONSENT TO TREATMENT: Plan of care is discussed but patient with questionable understanding. ASSESSMENT: Functional performance limited due to: limited activities of daily living, pain, decreased functional mobility, decreased functional balance and decreased cognition . Patient continues to benefit from skilled Occupational Therapy to achieve the following functional goals. Short Term Goals: Cognition: 1 step commands and 100% of the time Patient will increase orientation to place, time and situation Patient will transfer to bedside commode with moderate assist and X 2 Patient will perform supine to/from sit with moderate assist and X 2 Technical Mgr Goal(s): Patient to discharge to appropriate next level of inpatient care. Plan: Plan: ADL training Functional transfer training Functional balance training Safety awareness If patient is discharged from the facility, this note serves as a discharge summary if further occupational therapy visits did not occur. Refer to filed flowsheet for further details. Following therapy session, patient left in bed, with bed alarm on , with call light within reach, with RN in room. * Angelina Gould MSW - 03/12/2022 1:24 PM CDT Tuesday Summary Note Discharge Level of Care: SNF Discharge Destination: [facility] Insurance Auth: n/a Anticipated Mode of Transportation: ambulance Contacts (Name, relationship, phone #): Adriane Hilliard (sister) [phone] Anticipated DC Date: TBD Pending Needs: n/a Comments: anticipate return to SNF when medically cleared CLARITA Ochoa Phone [phone] 03/12/2022 * Ivy Crawford, PT - 03/12/2022 9:46 AM CDT [facility] Physical Medicine and Rehabilitation Physical Therapy Initial Evaluation Note Patient: Mojgan Tabor Med Record Number: [id number] Date of : 1960 Age: [age] year old PPE worn by staff: gloves;gown - disposable;mask - procedural PPE worn by patient: socks - clean;gown - patient, clean Co-treat with OT due to level of skilled assist required. Discharge Recommendation: Patient will benefit [...] Weight Bearing Status: (no restrictions) Activity Level: Up ad daniela DIAGNOSIS: Patient Active Problem List: Seizure (CMS/HCC) [...] Acute encephalopathy Sepsis without acute organ dysfunction ([facility]/HCC) Bacteremia Pneumonia Ulcer of left foot ([facility]/HCC) PAD (peripheral artery disease) ([facility]/HCC) Protein calorie malnutrition ([facility]/HCC) Past Medical History: Diagnosis Date ??? CVA (cerebral vascular accident) (CMS/HCC) ??? HTN (hypertension) ??? Seizure ([facility]/HCC) SUBJECTIVE: Subjective: I used a wheelchair. Pt agreeable to therapy. PATIENT GOALS: Patient's Primary Concern: To get warm. Home Situation: Type of Residence: [facility] ([facility]) Equipment at Home: Wheelchair-Standard Prior Level of Functioning: Mobility: Wheelchair Bound;Transfers Only;With Physical Assistance Have Help at Home?: Yes, there is help at home now Who assists you at home?: Staff Pain Assessment: Pain Rating Score #: 0 Follow-up for pain: No follow-up for pain indicated and patient agreed to proceed with treatment OBJECTIVE: At start of therapy session, patient found in bed. LDAs: IV's: Peripheral line and Catheter Edema: no edema noted in bilateral lower extremities Vitals: no s/s of distress on room air Mental Status/Cognition: Level of Consciousness-Adult: Drowsy;Eyes Open Spontaneously Orientation Level: Oriented to Person;Oriented to Place Cognition: Processing-delayed Attention Span: Attends with cues to redirect Following Commands: Follows one step commands with repetition/cues ROM: RLE: AROM WFL LLE: AROM WFL Strength: RLE:deficits noted, 1-2/5 LLE: deficits noted, 1-2/5 Tone: RLE: no abnormal tone noted LLE: no abnormal tone noted Coordination: RLE: impaired LLE: impaired Sensation: RLE: intact LLE: intact Mobility: A gait belt and non-slip socks were used for all out of bed activity this date. Bed Mobility: Rolling: Maximal Assistance to Right;Maximal Assistance to Left Supine to Sit: Maximum Assistance;X 2 with HOB in semi-fowlers position Sit to Supine: Maximum Assistance;X 2 Gait: Weight Bearing Status: (no restrictions) Pt not ambulatory this date Balance: Balance Scales/Tests Used: Sitting: Static/Dynamic Sitting - Static: Poor + Sitting - Dynamic: Poor ACTIVITY TOLERANCE: Patient's activity tolerance: fair minus TREATMENT/INTERVENTIONS: evaluation, bed mobility training, balance activities, monitoring of vitals and cognitive stimulation EDUCATION: While performing PT, Patient was instructed in:functional mobility training, safety awareness/fall precautions Presented to patient who demonstrates Fair understanding of instructions given. INFORMED CONSENT TO TREATMENT: Plan of care including recommended therapy, goals and frequency, discussed with patient who understands and agrees to proceed. ASSESSMENT: Patient would benefit from additional Physical Therapy sessions to achieve the following functionalgoals to enhance independence. Short Term Goals: Goal Formation With patient Patient will perform bed mobility with maximal assist Patient will transfer sit to/from stand with maximal assist Patient will transfer bed to/from chair with maximal assist Intermediate Goal(s): Patient to discharge to appropriate next level of inpatient care. Equipment Issued: none Plan: Plan: Transfer training Endurance training Bed mobility training Balance training Safety awareness If patient is discharged from the facility, this note serves as a discharge summary if further physical therapy visits did not occur. Refer to filed flowsheet for further details. Following therapy session, patient left in bed, with bed alarm on , with call light within reach, with RN in room. * Blair Mojica MD - 03/12/2022 7:35 AM CDT Hospitalist Progress Note Mojgan Tabor is a 62 year old male who is admitted for AMS Subjective: Patient afebrile. Appears comfortable, following commands, more interactive. Objective: Blood pressure 153/93, pulse (!) 118, temperature 99.4 ??F (37.4 ??C), temperature source Oral, resp. rate 20, height 1.829 m (6'), weight 68 kg (150 lb), SpO2 95 %. Gen: NAD, interactive HEENT: NCAT, EOMI, dry MM RESP: Course breath sounds CV: Tachycardia GI: Soft and non tender. +BS, no HSM EXT: No edema. Neuro: follows commands, limited movement, appears contracted. Skin: wound noted on left lower extremity, doesn't appear acutely infected, pulses dopplerable MAR reviewed Relevant labs reviewed Valproic acid 95 K3.3 Creatinine 0.55 Mag 1.8 Wbc 12.4 hgb 11.3 plt 225 Relevant imaging reviewed Left arterial duplex Eleveated velocities in the mid left superficial femoral artery suggestive of a hemodynamically significant stenosis LUIZ Abnormal left lower extremity arterial physiologic study consistent with severe peripheral vasculardisease measuring 0.30.5. Normal right lower extremity arterial physiologic study. ECHO The left ventricle is normal size. Left ventricular systolic function is mildly decreased with an ejection fraction by Biplane Method of Discs of 47 %. Left ventricular segmental wall motion is abnormal, please see wall motion graphic. The left ventricular diastolic function is abnormal (Grade I), consistent with low normal left ventricle filling pressures. No significant valvular abnormalities. Assessment/Plan: 1) Sepsis - suspected secondary to pneumonia - MSSA bacteremia - Blood cultures were positive on 03/08 and 03/09 (but 1/2 for each) - MRSA swab positive - continue vancomycin/ceftriaxone/flagyl for suspected pneumonia/bacteremia - ID consulted - CT CAP reviewed - ECHO without vegetation - FU blood cultures 2) Hx of refractory epilepsy - appreciate neurology input - CT head negative - continue keppra, depakote, clobazam, lacosamide - discussed EEG and valproic acid level - continue current regimen 3) Encephalopathy - improving - suspect related to infection, continue antibiotics - monitor for stool and urine retention - appears interactive today, will continue to monitor - appreciate neurology input on seizures 4) dysphagia - appreciate speech input - cleared for easy to swallow, but nursing felt minced and moist may work better. 5) PAD/Ulcer of left foot - Sore on the left foot, great toe meets ball of the foot. - multilevel ABIs and arterial duplex - concerning for significant PVD - continue Local wound care with betadine painting of toes and foot dorsum - patient is to follow up with outpatient vascular - consult to wound care ?? 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 0.9% NaCl 3 mL Intracatheter q8h ??? amLODIPine 5 mg Oral AT BEDTIME ??? aspirin 81 mg Oral QDAY ??? atorvastatin 40 mg Oral QDAY ??? cefTRIAXone 2,000 mg Intravenous q24h ??? cloBAZam 10 mg Oral BID ??? divalproex DR 1,000 mg Oral BID ??? folic acid 1 mg Oral QDAY ??? heparin 5,000 Units Subcutaneous TID ??? lacosamide 200 mg Oral BID ??? levETIRAcetam 2,000 mg Oral BID ??? metroNIDAZOLE 500 mg Oral q8h ??? perflutren lipid microsphere 0.5 mL Intravenous intra-Procedure multiple ??? potassium chloride 40 mEq Oral Once ??? tamsulosin 0.4 mg Oral QDAY ??? thiamine 100 mg Oral QDAY ??? vancomycin 1,250 mg Intravenous q8h ??? vancomycin (VANCOCIN) IV dose per pharmacy Does not apply DIRECTED Summary of Hospital Problem List Epilepsy, unspecified, not intractable, without status epilepticus (CMS/HCC) POA: Yes History of CVA (cerebrovascular accident) POA: Yes Hypertension POA: Yes Sepsis without acute organ dysfunction (CMS/HCC) POA: Unknown Bacteremia POA: Unknown Pneumonia POA: Unknown Ulcer of left foot (CMS/HCC) POA: Unknown PAD (peripheral artery disease) (CMS/HCC) POA: Unknown Protein calorie malnutrition (CMS/HCC) POA: Unknown * Marilynn Hyman PharmD - 03/12/2022 2:05 AM CDT Vancomycin Per Pharmacy - Follow-Up Note Subjective Mojgan Tabor is a 62 year old male receiving vancomycin dosed per pharmacy. Indication for anti-infective therapy: suspected infection Site of anti-infective therapy: Lower respiratory/blood. Goal trough 15-20 mcg/mL. Objective Day of treatment: 5 Current dosing regimen: 1000 mg, q 8 hr. Weight: 68 kg (150 lb) Estimated Creatinine Clearance: 149.2 mL/min (A) (by C-G formula based on SCr of 0.5 mg/dL (L)). Ht Readings from Last 1 Encounters: 03/08/22 6' (1.829 m) Recent Labs Component Name 03/11/22 2339 03/11/22 1059 03/10/22 1147 03/09/22 0411 03/09/22 0135 CREATININE - 0.50* 0.53* 0.63* - WBC - 11.7* 15.4* - 23.0* VANCTROUGH 12.5 - 7.7* - - Vancomycin Administrations from JUL (last 72 hours) Date/Time Action Medication Dose Rate 03/11/22 2352 $ New Bag vancomycin (Vancocin) 1,000 mg in 0.9% NaCl IV 250 mL IVPB 1,000 mg 250 mL/hr 03/11/22 1619 $ New Bag vancomycin (Vancocin) 1,000 mg in 0.9% NaCl IV 250 mL IVPB 1,000 mg 250 mL/hr 03/11/22 0502 $ New Bag vancomycin (Vancocin) 1,000 mg in 0.9% NaCl IV 250 mL IVPB 1,000 mg 250 mL/hr 03/10/22 2105 $ New Bag vancomycin (Vancocin) 1,000 mg in 0.9% NaCl IV 250 mL IVPB 1,000 mg 250 mL/hr 03/10/22 1150 $ New Bag vancomycin (Vancocin) 1,250 mg in 250 mL NaCl IVPB Premix 1,250 mg 200 mL/hr 03/10/22 0026 Rate Change vancomycin (Vancocin) 1,250 mg in 250 mL NaCl IVPB Premix 5 mL/hr 03/09/22 2311 $ New Bag vancomycin (Vancocin) 1,250 mg in 250 mL NaCl IVPB Premix 1,250 mg 200 mL/hr 03/09/22 1408 Rate Change vancomycin (Vancocin) 1,250 mg in 250 mL NaCl IVPB Premix 5 mL/hr 03/09/22 1253 $ New Bag vancomycin (Vancocin) 1,250 mg in 250 mL NaCl IVPB Premix 1,250 mg 200 mL/hr Assessment Target trough:15-20 mcg/mL The vancomycin serum level reported above was drawn 7.5 hours after the previous dose was administered. Using pharmacokinetic calculations, the extrapolated true trough is approximately 11.7 mcg/mL Patient's trough level is below the therapeutic range on the current regimen. Ke = 0.1278 t1/2 = 5.4 hrs Vd = 51 L S.Cr is stable at this time. Plan Dosing: Will adjust dose to 1250 mg q8hr. This regimen is predicted to provide a trough = 15 mcg/mL. Monitoring: Will obtain a vancomycin trough level prior to the 5th dose on 03/13 at 1500 and adjust regimen if appropriate. Will continue to monitor patient's renal function. Please contact the [facility] pharmacy department ([phone]) with any questions. Marilynn Hyman PharmD 03/12/2022 2:01 AM Resources: Vancomycin Protocol * Phyllis Rangel RN - 03/11/2022 8:04 PM CDT Problem: Skin Integrity Goal: Skin integrity is maintained or improved 03/11/20222003 by Phyllis Rangel RN Outcome: Progressing 03/11/20221955 by Phyllis Rangel RN Outcome: Progressing Problem: Pain/Discomfort Goal: Patient exhibits reduced pain/discomfort as evidenced by pain scores 03/11/20222003 by Phyllis Rangel RN Outcome: Progressing 03/11/20221955 by Phyllis Rangel RN Outcome: Progressing * Phyllis Rangel RN - 03/11/2022 7:56 PM CDT Problem: Skin Integrity Goal: Skin integrity is maintained or improved Outcome: Progressing Problem: Fall Risk Goal: Fall risk and fall related injury risk are minimized (interventions related to the fall risk can be found in the flowsheet documentation) Outcome: Progressing * Susan Sosa RN - 03/11/2022 1:50 PM CDT Images from the original note were not included. Physician consult regarding leg wound. Pt assessed at the bedside, he was slow to arouse, but I wasable to arouse him. LEs assessed, photos obtained, chart reviewed. Vascular surgery Was consulted on pt on 03/09 and Yevgeniy recommended Betadine paint to left foot to second and third toes and to dorsum of foot. Recommend follow vascular surgery recommendations, pt may benefit from Sween from base of toes to knees to intact skin daily. * Marcella Terrell - 03/11/2022 1:09 PM CDT Discharge Trench Digger received request from Lakesha Francis APRN to arrange follow- up appointment for Patient with Vascular. This bond writer called [phone] and spoke with Yana. Trench Digger was able to obtain follow-up appointment for Patient with Dr. Membreno on Thursday March 24, 2022 at 10:45 am.No further follow-up needs from project scheduler indicated at this time. Marcella Terrell, Discharge Trench Digger 03/11/2022 * Shakila Medina OT - 03/11/2022 11:26 AM CDT [facility] Department of Physical Medicine & Rehabilitation Progress Note Patient: Mojgan Tabor Med Record Number: [id number] Date of : 1960 Age: [age] year old 03/11/22 1100 Missed Visit Missed Visit MD Rai (decreased responsiveness at bedside) Will re-initiate OT eval as appropriate and schedule allows. * Simona Ramirez, PT - 03/11/2022 10:33 AM CDT [facility] Department of Physical Medicine & Rehabilitation Progress Note Patient: Mojgan Tabor Med Record Number: [id number] Date of : 1960 Age: [age] year old 03/11/22 1033 Missed Visit Missed Visit MD Rai (d/t unresponsiveness) Will follow up as patient appropriate and time permitting. * Blair Mojica MD - 03/11/2022 8:37 AM CDT Hospitalist Progress Note Mojgan Tabor is a 62 year old male who is admitted for AMS Subjective: Patient afebrile. No chest pain or shortness of breath. Notes diffuse pain and some pain with urination (prior urine culture negative). No nausea or vomiting. Objective: Blood pressure 161/91, pulse (!) 121, temperature 99.4 ??F (37.4 ??C), resp. rate 20, height 1.829 m (6'), weight 68 kg (150 lb), SpO2 100 %. Gen: NAD, interactive HEENT: NCAT, EOMI, dry MM RESP: Course breath sounds CV: Tachycardia GI: Soft and non tender. +BS, no HSM EXT: No edema. Neuro: follows commands, limited movement, appears contracted. Skin: wound noted on left lower extremity, doesn't appear acutely infected, pulses dopplerable MAR reviewed Relevant labs reviewed No new labs Relevant imaging reviewed Left arterial duplex Eleveated velocities in the mid left superficial femoral artery suggestive of a hemodynamically significant stenosis LUIZ Abnormal left lower extremity arterial physiologic study consistent with severe peripheral vasculardisease measuring 0.30.5. Normal right lower extremity arterial physiologic study. Assessment/Plan: 1) Sepsis - suspected secondary to pneumonia with - MSSA bacteremia - Blood cultures were positive on 03/08 and 03/09 (but 1/2 for each) - MRSA swab positive - continue vancomycin/ceftriaxone for suspected pneumonia/bacteremia - ID consulted - CT CAP reviewed - ECHO ordered - trend blood cultures 2) Hx of refractory epilepsy - appreciate neurology input - CT head negative - continue keppra, depakote, clobazam, lacosamide 3) Encephalopathy - improving - suspect related to infection, continue antibiotics - monitor for stool and urine retention - appears interactive today, will continue to monitor - appreciate neurology input on seizures 4) dysphagia - appreciate speech input - cleared for easy to chiew diet 5) PAD/Ulcer of left foot - Sore on the left foot, great toe meets ball of the foot. - multilevel ABIs and arterial duplex - concerning for significant PVD - continue Local wound care with betadine painting of toes and foot dorsum - patient is to follow up with outpatient vascular - consult to wound care ?? 6) Severe Protein calorie malnutrition - appreciate nutrition assistance 7) Hx of CVA - asa, statin 8) HTN - norvasc LDA: peripheral IV Diet: Easy to chew Antibiotic end date: to soon to tell Consults: Neurology DVT prophylaxis: heparin Code status: Full Code Disposition: continue inpatient care at this time Blair Mojica MD Hospital Medicine 03/11/2022 Feel free to text page me through [employer], login [employer] Current Meds ??? 0.9% NaCl 3 mL Intracatheter q8h ??? amLODIPine 5 mg Oral AT BEDTIME ??? aspirin 81 mg Oral QDAY ??? atorvastatin 40 mg Oral QDAY ??? cefTRIAXone 2,000 mg Intravenous q24h ??? cloBAZam 10 mg Oral BID ??? divalproex DR 1,000 mg Oral BID ??? folic acid 1 mg Oral QDAY ??? heparin 5,000 Units Subcutaneous TID ??? lacosamide 200 mg Oral BID ??? levETIRAcetam 2,000 mg Oral BID ??? tamsulosin 0.4 mg Oral QDAY ??? thiamine 100 mg Oral QDAY ??? vancomycin 1,000 mg Intravenous q8h ??? vancomycin (VANCOCIN) IV dose per pharmacy Does not apply DIRECTED Summary of Hospital Problem List Epilepsy, unspecified, not intractable, without status epilepticus (CMS/HCC) POA: Yes History of CVA (cerebrovascular accident) POA: Yes Hypertension POA: Yes Sepsis without acute organ dysfunction (CMS/HCC) POA: Unknown Bacteremia POA: Unknown Pneumonia POA: Unknown Ulcer of left foot (CMS/HCC) POA: Unknown PAD (peripheral artery disease) (CMS/HCC) POA: Unknown Protein calorie malnutrition (CMS/HCC) POA: Unknown * Suzan Hope MD - 03/11/2022 6:56 AM CDT Neurology Plan of Care CT head negative. Neurology will sign off. Suzan Hope MD Neurology, PGY-4 * Armando Villalta RN - 03/11/2022 2:58 AM CDT Problem: Fall Risk Goal: Fall risk and fall related injury risk are minimized (interventions related to the fall risk can be found in the flowsheet documentation) Outcome: Progressing Problem: Skin Integrity Goal: Skin integrity is maintained or improved Outcome: Progressing Problem: Pain/Discomfort Goal: Patient exhibits reduced pain/discomfort as evidenced by pain scores Outcome: Progressing * Marleny Bauman RN - 03/11/2022 2:31 AM CDT Pause protocol completed. Dr Musa Gruber states that need for blood culture is due to sepsis,. * Ivy Mata RN - 03/10/2022 3:57 PM CDT Last dc in 12/2021 pt discharged to [facility]. Continue to monitor for placement. Ivy Mata RN, BSN Mask Inspector [phone] * Ivy Mata, RN - 03/10/2022 1:49 PM CDT Case Management Initial Assessment Case Management screen completed & Welcome Letter given. Anticipated level of care at discharge: [facility] Skilled Facility Discharge Plans: Family wants pt to go to rehab facility and possibly other placement. Prior Level of Functioning: Uses a wheelchair. Does get help with ADLs from facility staff. Pt here for AMS, lethargy. Hx of ETOH abuse, CVA, HTN, HLD, anxious, alzheimer's, dementia, PVD, epilepsy Lives with: Other (Comment) Basic Needs Assessment (BNA) Score: 13 Readmission: No Met with sister Discharge Goals and Plans: Patient Goals: Family wondering about safe discharge to old facility. Professed liking rehab that he was in previously. Plans: Discharge needs identified. See progress notes for details. Case Management to follow for discharge planning. Verify Family Support (name and phone): Extended Emergency Contact Information Primary Emergency Contact: Adriane Hilliard Mobile Relation: Sister Nutrition Internship needed? No Secondary Emergency Contact: Amarjit Tabor [facility] Relation: Brother Patient or traffic representative requests care coordination reach out to family or caregiver listed above regarding discharge planning and at time of discharge? Yes Anticipated Discharge Date: 03/12/22 (Final decision based on recommendations by tx team) Patient/Family provided with list of resources? Unknown Preferred Provider / High Quality Network List given?: Unknown Reason for provider choice: Unknown Transportation at Discharge: Medicaid Provider Transportation to MD appointments: Medicaid Provider Equipment at Home: Equipment at Home: Wheelchair-Standard List DME pt. requires but does not [...] more.: Never true [employer] Resources Provided: Other (comment) Harvest Manager Referral: Yes If patient requires HHC at discharge, he/she requests: Patient agreeable to speak with [facility] at Home Will continue to follow. For any questions or needs please contact: Mask Inspector Name/Phone number: Ivy Mata RN [phone] * Suzan Hope MD - 03/10/2022 1:27 PM CDT General Neurology Progress Note Hospital Course: 62yo M who was brought in from assisted due to 'worsening mental status.' Per chart, the patient has dementia and is not functional at baseline. At [facility], patient found to be tachycardic and febrile with pneumonia and bacteremia. No witnessed seizure or seizure-like activity noted. ?? Of note, patient has a history of refractory focal epilepsy and follows in [facility] epilepsy clinic. Hewas last seen in clinic on 02/16/22 where anti-seizure regimen (listed below in meds) were not changed. He was also admitted to the epilepsy monitoring unit from 12/21-01/07 to quantify seizure burden. During this admission, he had frequent subclinical electrographic seizures. Clobazam was added and valproic acid was increased and patient was discharged to a [facility] facility. Overnight: No events concerning for seizures overnight. Patient being treated for bacteremia and pneumonia. Objective: BP (!) 169/100 Pulse (!) 114 Temp 98.8 ??F (37.1 ??C) Resp 22 Ht 6' (1.829 m) Wt 150 lb (68 kg) SpO2 97% Temp (30hrs) Max:98.8 ??F (37.1 ??C) Exam: Oriented to name only, does not know location or date Mild L exotropia Able to gaze in all directions Face symmetric Raises arms against gravity Does not raise legs against gravity when asked Unable to assess sensation to light touch Finger to nose grossly intact in each arm Gait not assessed Assessment/Plan: 62yo M who presents from home with reduced consciousness. This is likely due to current infectious processes including pneumonia and bacteremia. There have been no witnessed events concerning for seizures. Infections reduce the seizure threshold so it is prudent for the infectious processes to be treated accordingly. No indication for EEG at this time, will consider if mental status does not return to baseline after treatment of pneumonia and bacteremia. We will evaluate for structural abnormalities with head imaging. Continue anti-seizure regimen below. ?? - continue levetiracetam 2000mg bid, depakote DR 1000mg bid, lacosamide 200mg bid, clobazam 10mg bid - check VPA level on 03/10 at 0830 (30 minutes before scheduled dose) - clobazam and lacosamide levels pending - treatment of pneumonia and bacteremia per primary team - order CT head wo contrast - neurology will continue to follow Plan discussed with neurology attending, Dr. Carl. Please contact with questions/concerns. Suzan Hope MD Neurology, PGY-4 Associated attestation - Baldev Carl MD - 03/10/2022 1:34 PM CDT Concur with resident note. Please see my addendum to consult note for full details. 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 Outpatient medications were clarified with pharmacy records, Surescripts data, and Care Everywhere. Pleasenote all medications may NOT have been clarified pending available information at the time. Of note OP neurology note from 03/06 clarified OP antiepileptics matches below Current Updated Home Medications: Medications Prior to Admission Medication Sig Action Taken ??? acetaminophen (Tylenol) 325 MG tablet Take 1 (one) tablet by mouth every 6 hours as needed for Fever or Pain ??? amLODIPine (Norvasc) 5 MG tablet Take 1 (one) tablet by mouth at bedtime ??? aspirin (Aspirin) 81 MG chew tablet Take 1 (one) tablet by mouth once daily ??? atorvastatin (Lipitor) 40 MG tablet Take 1 (one) tablet by mouth once daily ??? cloBAZam (Onfi) 10 MG tablet Take 1 (one) tablet by mouth 2 times daily ??? divalproex DR (Depakote) 500 MG tablet Take 2 (two) tablets by mouth 2 times daily ??? folic acid (Folvite) 1 MG tablet Take 1 (one) tablet by mouth once daily ??? ibuprofen (Motrin) 600 MG tablet Take 1 (one) tablet by mouth as needed ??? lacosamide (Vimpat) 200 MG tablet Take 1 (one) tablet by mouth 2 times daily ??? levETIRAcetam (Keppra) 1000 MG tablet Take 2 (two) tablets by mouth every 12 hours ? multivitamin daily tablet Take 1 (one) tablet by mouth once daily ? ondansetron, disintegrating, (Zofran ODT) 4 MG tablet ??? polyethylene glycol 3350 (Miralax) 17 g packet Take 17 (seventeen) g by mouth once daily ??? tamsulosin (Flomax) 0.4 MG capsule Take 1 (one) capsule by mouth once daily At the same time every day after a meal. (Patient not taking: Reported on 03/10/2022) See below ??? thiamine (Vitamin B-1) 100 MG tablet Take 1 (one) tablet by mouth once daily ??? vitamin D3 (Cholecalciferol) 25 MCG (1000 UNITS) tablet Take 1 (one) tablet by mouth once daily Medications removed/require assessment to be removed: ??? Duplicate MVI ??? IV ondansetron order ??? Tamsulosin - filled for 90 day supply in October for urinary retention- OV note in Jan indicates pt stopped taking - please re-evaluate continued need for med Please note that this only serves as an updated medication list and all medical teams should continue to manage the patient as deemed most appropriate. If any questions about the home medication listarise please do not hesitate to contact the [facility] pharmacy dept ([phone]). Thank you. Assessment Completed by: Rickie Shelton Jr., PharmD 03/10/2022 12:44 PM * Clover Dover RN - 03/10/2022 12:11 PM CDT Problem: Fall Risk Goal: Fall risk and fall related injury risk are minimized (interventions related to the fall risk can be found in the flowsheet documentation) Outcome: Progressing Problem: Skin Integrity Goal: Skin integrity is maintained or improved Outcome: Progressing Problem: Nutrient: Malnutrition Goal: Total intake will meet estimated nutrient needs Outcome: Progressing * Dina Thomas, JOSIAS - 03/10/2022 10:56 AM CDT [facility] Physical Medicine and Rehabilitation Swallow Treatment Patient: Mojgan Tabor Med Record Number: [id number] Date of : 1960 Age: [age] year old PPE: PPE worn by staff: eye protection;gloves;mask - N95 Impressions: Patient presents with improving dysphagia now that pt is more alert. Pt consumed cracker crumbled in puree, thin liquids and purees w/o overt s/s aspiration. Would recommend pt's diet beadvanced. Given pt's baseline swallow status, no further ST is indicated at this time. Recommendations: Diet Liquids Recommendation: Thin/ Thin (0) Diet Solids Recommendation: Mechanical Soft/Easy to Chew (EC7) Recommended Form of Meds: As Tolerated Recommended Tests/Consults: No further testing is indicated Discharge Recommendations: TBD pending medical status. No further ST needs anticipated at discharge SUBJECTIVE: Patient Goals: None stated Pain Assessment: Pain Rating Score #: 0 Follow-up for pain: No follow-up for pain indicated and patient agreed to proceed with treatment OBJECTIVE: Level of Consciousness: alert Orientation Level: oriented to person, oriented to place, disoriented to situation, disoriented to time Positioning: Upright in bed Respiratory Status: room air Swallow Trials: Thin Liquids: Presentation: Straw-Assisted Oral: (Initially did not form a labial seal w/ a straw) Subsequent attempts were WFLs Pharyngeal: Within Functional LImits Puree: Presentation: Spoon-Assisted Oral: Within Functional Limits Pharyngeal: Within Functional LImits Crumbled Solid: Presentation: Assisted Oral: Within functional limits; pt w/ poor dentition, will likely benefit from easy to chew solids Pharyngeal: Within Functional Limits Assessment: Risk For Aspiration: None Primary Diagnostic Impression - Oral: No dysphagia Primary Diagnostic Impression - Pharyngeal: No dysphagia suspected Education/Interventions: While performing OIL FIELD PUMPER, Patient was instructed in: results of swallow evaluation, diet/liquid recommendations and swallowing strategies/aspiration precautions. Patient demonstrated Fair understanding of instructions given. Physician instructed in recommendations and indicated understanding. INFORMED CONSENT TO TREATMENT: Plan of care including recommended therapy, goals and frequency, discussed with patient who understands and agrees to proceed. Short Term Goals Patient will tolerate recommended diet w/o aspiration. Technical Mgr Goal (s): Patient to be independent/baseline with functional mobility and self care and be able to safely discharge to prior level of care. Plan: Discharge ST * Blair Mojica MD - 03/10/2022 7:49 AM CDT Hospitalist Progress Note Mojgan Tabor is a 62 year old male who is admitted for AMS Subjective: Patient with improvement in fever but still has some chills. No chest pain, no shortness of breath. No diarrhea. Objective: Blood pressure 160/92, pulse 107, temperature 98.7 ??F (37.1 ??C), temperature source Axillary, resp. rate 16, height 1.829 m (6'), weight 68 kg (150 lb), SpO2 97 %. Gen: NAD, interactive HEENT: NCAT, EOMI, dry MM RESP: Course breath sounds CV: Nl S1 and S2 No gallops. GI: Soft and non tender. +BS, no HSM EXT: No edema. Neuro: follows commands, limited movement, appears contracted. Skin: wound noted on left lower extremity, doesn't appear acutely infected, pulses dopplerable MAR reviewed Relevant labs reviewed Wbc 15.4 hgb 11.9 plt 183 Phos 2.0 Mag 1.7 Relevant imaging reviewed Left arterial duplex Eleveated velocities in the mid left superficial femoral artery suggestive of a hemodynamically significant stenosis LUIZ Abnormal left lower extremity arterial physiologic study consistent with severe peripheral vasculardisease measuring 0.30.5. Normal right lower extremity arterial physiologic study. Assessment/Plan: 1) Sepsis - suspected to pneumonia - Blood cultures were positive on 03/08 and 03/09 (but 1/2 for each) - unclear if true or contaminent - will follow - MRSA swab positive - continue vancomycin/ceftriaxone for suspected pneumonia 2) Hx of refractory epilepsy - appreciate neurology input - obtain CT head per neurology recs - continue keppra, depakote, clobazam, lacosamide 3) Encephalopathy - suspect related to infection, continue antibiotics - monitor for stool and urine retention - appears interactive today, will continue to monitor - appreciate neurology input on seizures 4) dysphagia - appreciate speech input 5) PAD/Ulcer of left foot - Sore on the left foot, great toe meets ball of the foot. - multilevel ABIs and arterial duplex - concerning for significant PVD - continue Local wound care with betadine painting of toes and foot dorsum - patient is to follow up with outpatient vascular ?? 6) Severe Protein calorie malnutrition - appreciate nutrition assistance 7) Hx of CVA - asa, statin 8) HTN - norvasc LDA: peripheral IV Diet: NPO per speech Antibiotic end date: to soon to tell Consults: Neurology DVT prophylaxis: heparin Code status: Full Code Disposition: continue inpatient care at this time Blair Mojica MD Hospital Medicine 03/10/2022 Feel free to text page me through [employer], login [employer] Current Meds ??? 0.9% NaCl 3 mL Intracatheter q8h ??? amLODIPine 5 mg Oral AT BEDTIME ??? aspirin 81 mg Oral QDAY ??? atorvastatin 40 mg Oral QDAY ??? cefTRIAXone 2,000 mg Intravenous q24h ??? cloBAZam 10 mg Oral BID ??? folic acid 1 mg Oral QDAY ??? heparin 5,000 Units Subcutaneous BID ??? iopamidol Intravenous Contrast - Once ??? lacosamide 200 mg Intravenous BID ??? levETIRAcetam 2,000 mg Intravenous q12h ??? tamsulosin 0.4 mg Oral QDAY ??? thiamine 100 mg Oral QDAY ??? valproate (Depacon) custom in 50 mL IVPB 333 mg Intravenous q6h ??? vancomycin 1,250 mg Intravenous q12h ??? vancomycin (VANCOCIN) IV dose per pharmacy Does not apply DIRECTED * Vicky Silva MD - 03/09/2022 1:27 PM CDT INTERNAL MEDICINE PROGRESS NOTE Admit Date: 03/08/2022 Progress Note Length of Stay 1 Day(s) Subjective: seen in the morning. Not responding to questions but following commands. Left hand stiff with passive ROM. Winces in pain when manipulating both lower extremities. POA: Adriane Hilliard (Sister). -Patient needs in a NH from [facility] due to uncontrollable seizures. Was getting better. Started havingfoot pain and appt to vascular. -Over the weekend started getting worse (pain, not talking as much, poor appetite, concern for weight loss Objective: Temp: [98.2 ??F (36.8 ??C)-101.6 ??F (38.7 ??C)] 98.4 ??F (36.9 ??C) Pulse: [100-134] 103 Resp: [10-39] 19 BP: (111-181)/(76-136) 138/91 Weight change: Intake/Output Summary (Last 24 hours) at 03/09/2022 1327 Last data filed at 03/08/2022 1731 Gross per 24 hour Intake 50 ml Output 700 ml Net -650 ml GEN NAD, lying in bed, not responding to questions, chronically ill HEENT NC, neck supple, sclera anicteric, dry mucosa CARDIO Tachycardia, regular rhythm, no murmurs appreciated RESP Normal work of breathing, on room air ABD Soft, non distended, non tender, positive BS EXT No clubbing, cyanosis or edema. SKIN Warm, no obvious new rashes NEURO Awake but not opening eyes, unable to follow commands PSYCH Appropriate mood and affect Data Review: data personally reviewed as below Recent Labs Component Name 03/09/22 0135 03/08/22 1455 03/05/22 1110 WBC 23.0* 20.8* 11.0* HGB 13.6 14.3 15.4 HCT 40.0 42.9 45.4 MCV 95.7 96.8 95.2 Recent Labs Component Name 03/09/22 0411 03/08/22 1455 03/05/22 1441 01/07/22 0733 01/06/22 0121 01/05/22 0110 CALCIUM 9.3 9.5 10.0 9.1 8.7 8.9 PHOS - - - 2.8 2.8 3.0 Recent Labs Component Name 03/09/22 0411 03/08/22 1455 03/05/22 1441 NA 144 143 142 CL 100 102 107 CO2 25 29 19* BUN 15 21 19 CREATININE 0.63* 0.87 1.01 Recent Labs Component Name 03/09/22 0411 03/08/22 1455 03/05/22 1441 03/03/18 1745 01/30/18 1255 11/28/17 0455 10/14/17 1349 10/13/17 1526 PROT 6.7 7.3 7.8 - 6.9 - 7.0 8.4* ALB 2.4* 2.7* 3.3* - 3.7 - 3.9 4.8 ALKPHOS 74 84 89 - 75 - 86 88 AST 75* 74* - - 18 23 ALT 27 26 13 - 10 - 9 11 TBILI 0.6 0.4 0.4 - 0.4 - 0.6 1.4* DBILI - - - - 0.2 - 0.2 0.4 - = values in this interval not displayed. Recent Labs Component Name 03/08/22 2137 03/08/22 1726 03/08/22 1455 12/31/21 0412 02/25/21 1134 05/15/19 0911 05/13/19 2030 01/24/19 0154 CKTOTAL - - - 77 - 63 - 127 CKMBCK2 - - - - - 0.8 - - TROPONINI 0.016 0.023 0.032* - - <0.010 - - - = values in this interval not displayed. IMAGING/PROCEDURES: no new imaging last 24 hours Medications: ??? 0.9% NaCl 3 mL Intracatheter q8h ??? amLODIPine 5 mg Oral AT BEDTIME ??? aspirin 81 mg Oral QDAY ??? atorvastatin 40 mg Oral QDAY ??? cefTRIAXone 2,000 mg Intravenous q24h ??? cloBAZam 10 mg Oral BID ??? divalproex DR 1,000 mg Oral BID ??? folic acid 1 mg Oral QDAY ??? heparin 5,000 Units Subcutaneous BID ??? iopamidol Intravenous Contrast - Once ??? lacosamide 200 mg Oral BID ??? levETIRAcetam 2,000 mg Oral q12h ??? tamsulosin 0.4 mg Oral QDAY ??? thiamine 100 mg Oral QDAY ??? vancomycin 1,250 mg Intravenous q12h ??? vancomycin (VANCOCIN) IV dose per pharmacy Does not apply DIRECTED PRN Meds: ??? SALINE LOCK, INSERT AND MAINTAIN AND 0.9% NaCl AND 0.9% NaCl ??? acetaminophen Sepsis without acute organ dysfunction (CMS/HCC) POA: Unknown Assessment/Plan: 61-year-old male with past medical history of hypertension, CVA, HTN, HLD, Alzheimer, prior head injury, cervical osteoarthritis, and epilepsy who was brought to the hospital by his family after theynoticed worsening of his mental status. #sepsis #CAP -CT CAP showed consolidation. Blood culture positive. Blood cx gram +ve cocci. UA benign. -started on ceftriaxone and Vancomycin -1.8 cm spiculated nodule needs 3 months follow-up #Encephalopathy -per sister was fine until this weekend. Was interactive and able to eat by himself and ambulate with assistance. -Blood culture positive -Neurology consult to help manage seizure meds and ensure encephalopathy not new seizures #Oropharngyeal dysphagia d/t lethargy, AMS #Hx of prior dysphagia: -NPO, per speech -per sister (POA) usually has dysphagia when sick or confused but improves with mentation. -continue LR IVF -CTM for improvement. No need for NGT for now #refractory epilepsy -2 types: brief staring events and generalized convulsive events. -Levetiractam 2000 mg BID, Depakote DR 1000 mg BID, Lacosamide 200 mg, clobazam 10 mg - levels ordered. -Neurology consulted #PAD #Ulcer of left foot -Sore on the left foot, great toe meets ball of the foot. -Per telephone encounters patient has appt with Vascular Dr. Membreno 03/10. They asked the inpatient PROJECT PLANNER to see patient. -called vascular team: stated they will see as outpatient clinic visit. -multilevel ABIs and arterial duplex -Local wound care with betadine painting of toes and foot dorsum -Per vascular: F/u in clinic 1 week after dc and can assess for what intervention is needed. #HTN: Amlodipine 5 mg qd #hx of CVA: Asa, Atorvastatin 40 mg Access: Peripheral IVs Diet: NPO except meds F/E/N: keep K 3.5-4.0 meq, Mg~2.0 mg/dl, Phosphorous 3.0-4.0 mmol/l Ppx: heparin CODE STATUS: FULL CODE Disposition: PT/OT, speech and nutrition notes reviewed and care discussed. Plan to continue admission POA: Adriane Hilliard (Sister). Vicky Silva MD General Internal Medicine 03/09/2022 1:27 PM >40 minutes spent on the care of this patient. > 50% was spent in counseling and coordinationof care that included the patient, family and consults. * Dina Thomas, OIL FIELD PUMPER - 03/09/2022 11:49 AM CDT [facility] Physical Medicine and Rehabilitation Bedside Swallow Assessment Patient: Mojgan Tabor [facility] Record Number: [id number] Date of : 1960 Age: [age] year [...] encephalopathy Sepsis without acute organ dysfunction (CMS/HCC) Past Medical History: Diagnosis Date ??? [...] team members. PPE: PPE worn by staff: eye protection;mask - procedural;gloves Impressions: Patient presents with suspected oropharyngeal dysphagia d/t lethargy, AMS. Pt also hasa history of prior dysphagia. Pt was administered trials of ice chips and purees by spoon. Dysphagia is evidenced by poor bolus formation/manipulation, delayed/reduced laryngeal elevation and coughing after PO trials. Pt is a poor candidate for oral intake at this time. ST will monitor pt for diet advance as appropriate. Recommendations: Diet Solids Recommendation: NPO Recommended Form of Meds: NPO Recommended Tests/Consults: Further instrumental swallow evaluation deferred at this time d/t lethargy. Pt may benefit from further testing if dysphagia persists once pt is more alert. Discharge Recommendations: TBD pending medical status. Speech therapy is recommended to improve swallow function. SUBJECTIVE: Patient Goals: None stated, pt nonverbal for this assessment Pain Assessment: Pain Rating Score #: 0 Follow-up for pain: No follow-up for pain indicated and patient agreed to proceed with treatment OBJECTIVE: Level of Consciousness: lethargic Orientation Level: unable to obtain Positioning: Upright in bed Respiratory Status: nasal cannula: 2lpm Oral/Motor: Dentition: (Fair) Oral Hygiene : Tongue coating Labial/Facial: Within Functional Limits Tongue: (EARNEST, pt did not follow commands for full exam) Vocal Quality: Within Functional Limits Controls Secretions: Yes Swallow Trials: Ice chips: Presentation: Spoon-Assisted Oral: Increased Anterior to Posterior Transit;Delayed Initiation. Pharyngeal: Cough - Immediate Thin Liquid: Did not trial d/t safety concerns Puree: Presentation: Spoon-Assisted Oral: Delayed Initiation;Increased Anterior to Posterior Transit; Pt reuqired multiple verbal and tactile prompts to initiate oral transit. Pt w/ severe oral residue after the swallow. Pharyngeal: Delayed Swallow Solid: Presentation: (Did not trial d/t safety concerns) Assessment: Risk For Aspiration: Moderate Primary Diagnostic Impression - Oral: Moderate Primary Diagnostic Impression - Pharyngeal: Moderate Education/Interventions: While performing OIL FIELD PUMPER, Patient was instructed in: recommendations for NPO status given patient's elevated aspiration risk. Patient demonstrated Poor understanding of instructions given. INFORMED CONSENT TO TREATMENT: Plan of care including recommended therapy, goals and frequency, discussed with patient who understands and agrees to proceed. Short Term Goals Patient will demonstrate an improvement in oropharyngeal swallow function to warrant diet upgrade. Intermediate Goal (s): Patient to be independent/baseline with functional mobility and self care and be able to safely discharge to prior level of care. Plan: Dysphagia tx for ongoing assessment * Cory Apple, PharmD - 03/09/2022 6:33 AM CDT Vancomycin Per Pharmacy - Initial Note Subjective Mojgan Tabor is a 62 year old male being initiated on vancomycin. Indication for anti-infective therapy: suspected infection Site of anti-infective therapy: Lower respiratory. Goal trough 15-20 mcg/mL. Objective Day of treatment: 2 Weight: 68 kg (150 lb) Estimated Creatinine Clearance: 118 mL/min (based on SCr of 0.63) Ht Readings from Last 1 Encounters: 03/08/22 6' (1.829 m) Recent Labs Component Name 03/09/22 0411 03/09/22 0135 03/08/22 1455 03/05/22 1441 03/05/22 1110 CREATININE 0.63* - 0.87 1.01 - WBC - 23.0* 20.8* - 11.0* Radiocontrast within 72 hours The 3 most recent administrations since 03/06/2022 are shown below each listed medication. Other Order Route Dose Action Date iopamidol (Isovue 370) 76 % contrast Intravenous 100 mL $ Given - Contrast 03/08/2022 Vancomycin Administrations from [facility] (last 72 hours) Date/Time Action Medication Dose Rate 03/08/22 5804 $ New Bag vancomycin (Vancocin) 1,750 mg in 500 mL NaCl IVPB 1,750 mg 285.71 mL/hr Assessment Target trough: 15-20 mcg/mL A dosing regimen of 1250 mg q 12 hours is predicted to achieve a trough of approximately 15.4 mcg/mL. Ke = 0.0819 t1/2 = 8.5 Vd = 51 Renal function based on S Cr is stable at this time. Plan Dosing: Loading Dose: 1750 mg Maintenance Dose: 1250 mg, Dosing Interval: q 12 h. Monitoring Plan: Will obtain a vancomycin trough level prior to the 4th dose on 03/10 at 1100 and adjust regimen if appropriate. Will continue to monitor patient's renal function. Please contact the [facility] pharmacy department ([id number]) with any questions. Cory Apple, Savi 03/09/2022 6:26 AM Resources: Vancomycin Protocol documented in this encounter H&P Notes * Jolynn Ann MD - 03/25/2022 3:27 PM CDT PRE-PROCEDURE HISTORY & PHYSICAL NOTE 03/25/2022 3:27 PM Patient: Mojgan Tabor, date of 1960 Procedure(s) planned: EGD + PEG placement Indication(s): Dysphagia History: Patient Active Problem List Diagnosis Date Noted ??? COVID-19 04/14/2021 Priority: High ??? History of CVA (cerebrovascular accident) 12/11/2020 Priority: High ??? Cognitive communication deficit 08/25/2020 Priority: High ??? Dysphagia, oropharyngeal phase 08/25/2020 Priority: High ??? Difficulty in walking, not elsewhere classified 05/24/2020 Priority: High ??? Muscle weakness (generalized) 05/24/2020 Priority: High ??? Epilepsy, unspecified, not intractable, without status epilepticus ([facility] 05/25/2019 Priority: High ??? Hemiplegia and 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-dominant side ([facility] 05/25/2019 Priority: High ??? Alzheimer's disease with early onset ([facility]) 05/17/2019 Priority: High ??? Paroxysmal tachycardia, unspecified ([facility]) 05/16/2019 Priority: High ??? Alcohol abuse, uncomplicated 08/13/2015 Priority: High ??? Benign neoplasm of prostate 06/26/2015 Priority: High ??? Other specified rheumatoid arthritis, unspecified site ([facility]) 06/26/2015 Priority: High ??? Syncope and collapse 06/26/2015 Priority: High ??? Bacteremia 03/11/2022 Priority: Not Prioritized ??? Pneumonia 03/11/2022 Priority: Not Prioritized ??? Ulcer of left foot ([facility]) 03/11/2022 Priority: Not Prioritized ??? PAD (peripheral artery disease) ([facility]) 03/11/2022 Priority: Not Prioritized ??? Protein calorie malnutrition ([facility]) 03/11/2022 Priority: Not Prioritized ??? Sepsis without acute organ dysfunction ([facility]) 03/08/2022 Priority: Not Prioritized ??? Status epilepticus ([facility]) 12/30/2021 Priority: Not Prioritized ??? Acute encephalopathy 12/30/2021 Priority: Not Prioritized ??? Seizures ([facility]) 08/13/2020 Priority: Not Prioritized ??? Therapeutic procedure Priority: Not Prioritized ??? Cerebrovascular accident ([facility]) 06/13/2019 Priority: Not Prioritized ??? Insomnia 06/13/2019 Priority: Not Prioritized ??? Low back pain 06/13/2019 Priority: Not Prioritized ??? Osteoporosis 11/22/2018 Priority: Not Prioritized ??? Seizure ([facility]) 10/13/2017 Priority: Not Prioritized ??? Hypertension 07/24/2015 Priority: Not Prioritized ??? Hyperlipidemia 04/14/2015 Priority: Not Prioritized Last Assessment & Plan: Continue home meds and monitor ??? 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 Leg Amputation, Below Knee Left 03/15/2022 Left; LEFT BKA POSS AKA Allergies Allergen Reactions ??? Clonazepam Psychiatric hallucinations No family history on file. No current facility-administered medications on file prior to encounter. Current Outpatient Medications on File Prior to Encounter Medication Sig Dispense Refill ??? acetaminophen (Tylenol) 325 MG tablet Take 1 (one) tablet by mouth every 6 hours as needed for Fever or Pain ??? amLODIPine (Norvasc) 5 MG tablet Take 1 (one) tablet by mouth at bedtime 60 tablet 3 ??? aspirin (Aspirin) 81 MG chew tablet Take 1 (one) tablet by mouth once daily 60 tablet 2 ??? atorvastatin (Lipitor) 40 MG tablet Take 1 (one) tablet by mouth once daily 60 tablet 2 ??? cloBAZam (Onfi) 10 MG tablet Take 1 (one) tablet by mouth 2 times daily 60 tablet 3 ??? divalproex DR (Depakote) 500 MG tablet Take 2 (two) tablets by mouth 2 times daily 120 tablet 11 ??? folic acid (Folvite) 1 MG tablet Take 1 (one) tablet by mouth once daily 60 tablet 2 ??? ibuprofen (Motrin) 600 MG tablet Take 1 (one) tablet by mouth as needed 30 tablet 0 ??? lacosamide (Vimpat) 200 MG tablet Take 1 (one) tablet by mouth 2 times daily 60 tablet 3 ??? levETIRAcetam (Keppra) 1000 MG tablet Take 2 (two) tablets by mouth every 12 hours 120 tablet 11 ??? Multiple Vitamin (One Daily Multivitamin Adult) TABS Take 1 tablet by mouth once daily ??? multivitamin daily tablet Take 1 (one) tablet by mouth once daily ??? ondansetron (Zofran) 2 MG/ML injection 4 (four) mg by Intravenous route every 8 hours as neededfor Nausea/Vomiting ??? ondansetron, disintegrating, (Zofran ODT) 4 MG tablet ??? polyethylene glycol 3350 (Miralax) 17 g packet Take 17 (seventeen) g by mouth once daily ??? tamsulosin (Flomax) 0.4 MG capsule Take 1 (one) capsule by mouth once daily At the same time every day after a meal. (Patient not taking: Reported on 03/10/2022) 30 capsule 2 ??? thiamine (Vitamin B-1) 100 MG tablet Take 1 (one) tablet by mouth once daily 30 tablet 2 ??? vitamin D3 (Cholecalciferol) 25 MCG (1000 UNITS) tablet Take 1 (one) tablet by mouth once daily30 tablet 2 Current Facility-Administered Medications Medication ??? 0.9% NaCl injection 3 mL And ??? 0.9% NaCl injection 1-10 mL ??? acetaminophen (Ofirmev) injection 1,000 mg ??? acetaminophen (Tylenol) tablet 650 mg ??? artificial tears ophthalmic solution 1 drop ??? aspirin chew tablet 81 mg ??? atorvastatin (Lipitor) tablet 40 mg ??? bisacodyl (Dulcolax) suppository 10 mg ??? ceFAZolin (Ancef) 2 g in 0.9% NaCl IV 50 mL IVPB ??? folic acid (Folvite) tablet 1 mg ??? hydrALAZINE (Apresoline) injection 10 mg ??? lacosamide (Vimpat) injection 200 mg ??? levETIRAcetam (Keppra) 2,000 mg in 0.9% NaCl IV 270 mL IVPB ??? LORazepam (Ativan) injection 0.5 mg ??? oxyCODONE (Roxicodone) oral solution 2.5 mg ??? perflutren lipid microsphere (Definity) injection 0.5 mL ??? polyethylene glycol 3350 (Miralax) packet 17 g ??? polyethylene glycol 3350 (Miralax) packet 17 g ??? PPN - PERIPHERAL LINE - ADULT ??? tamsulosin (Flomax) capsule 0.4 mg ??? thiamine (Vitamin B-1) injection 100 mg ??? valproate (Depacon) 500 mg in 0.9% NaCl IV 55 mL IVPB Review of systems: Constitutional: negative for fevers, chills, fatigue and malaise, no recent weight loss Respiratory: denies shortness of breath Cardiovascular: denies chest pain Gastrointestinal: negative for nausea, vomiting, diarrhea, abdominal pain Physical Exam: BP (!) 140/100 Pulse (!) 114 Temp 98.6 ??F (37 ??C) (Axillary) Resp 16 Ht 1.829 m (6') Wt68 kg (150 lb) SpO2 100% General appearance: alert, oriented, pleasant, in NAD, no asterexis Skin: Skin color, texture, turgor normal, no rashes, no spider angiomas Eyes: Anicteric sclera Lungs: CTAB, no wheezing or rhonchi Heart: RRR Abdomen: Soft, non-tender, non distended. Bowel sounds normal. No masses, organomegaly Extremities: No LE edema, or skin discoloration. Good capillary refill. Mallampati: 3 ASA score: 3 Lab Results Component Value Date/Time HGB 10.6 (L) 03/25/2022 03:51 AM INR 1.2 03/11/2022 10:59 AM CREATININE 0.45 (L) 03/25/2022 03:51 AM Sedation Plan: Monitored Anesthesia Care (MAC) by the anesthesia team. Procedure Plan: Based on the above assessment, we will perform the procedures indicated above. I have discussed the plan, risks, benefits and alternatives with the patient or guardian. When assessment above was not obtained immediately before the procedure, I have reassessed this patient and there are no changes. In addition to the standard procedural informed consent, the specific risks related to COVID-19 were also discussed, including the possibility of an infection being present with a negative test, the risk of meagan COVID-19, and the known implications of this infection. See consent form. Jolynn Ann MD PGY-4 Gastroenterology & Hepatology Fellow Division of Gastroenterology and Hepatology [facility] * Neha Palomino MD - 03/09/2022 12:05 AM CDT Images from the original note were not included. Name: Mojgan Tabor Admit Date and Time: 03/08/2022 1:54 PM Code Status:Full code Subjective: Chief Complaint: Worsening mental status H&P: 61-year-old male with past medical history of hypertension, CVA, hyperlipidemia, Alzheimer and epilepsy who was brought to the hospital by his family after they noticed worsening of his mental status. In my evaluation the patient was contracted able to follow simple command but you cannot have valuable information from him. Management of the patient based on the images and the labs. Past Medical and Surgical: PMH: as above. PSH:No past surgical history on file. Social and Family History: Social Hx: Social History Socioeconomic History ??? Marital status: Single Spouse name: Not on file ??? Number of children: Not on file ??? Years of education: Not on file ??? Highest education level: Not on file Occupational History ??? Not on file Tobacco Use ??? Smoking status: Former Smoker Packs/day: 1.00 Years: 15.00 Pack years: 15.00 ??? Smokeless tobacco: Never Used Vaping Use ??? Vaping Use: Never used [...] on file Housing Stability: Not on file Family Hx:No family history on file. Allergies: Allergies Allergen Reactions ??? Clonazepam Psychiatric hallucinations Home Medications: Current Medications acetaminophen (Tylenol) 325 MG tablet Take 1 (one) tablet by mouth every 6 hours as needed for Fever or Pain amLODIPine (Norvasc) 5 MG tablet Take 1 (one) tablet by mouth at bedtime aspirin (Aspirin) 81 MG chew tablet Take 1 (one) tablet by mouth once daily atorvastatin (Lipitor) 40 MG tablet Take 1 (one) tablet by mouth once daily cloBAZam (Onfi) 10 MG tablet Take 1 (one) tablet by mouth [address] (Depakote) 500 MG tablet Take 2 (two) tablets by mouth 2 times daily folic acid (Folvite) 1 MG tablet Take 1 (one) tablet by mouth once daily ibuprofen (Motrin) 600 MG tablet Take 1 (one) tablet by mouth as needed lacosamide (Vimpat) 200 MG tablet Take 1 (one) tablet by mouth 2 times daily levETIRAcetam (Keppra) 1000 MG tablet Take 2 (two) tablets by mouth every 12 hours Multiple Vitamin (One Daily Multivitamin Adult) TABS Take 1 tablet by mouth once daily multivitamin daily tablet Take 1 (one) tablet by mouth once daily ondansetron (Zofran) 2 MG/ML injection 4 (four) mg by Intravenous route every 8 hours as needed forNausea/Vomiting ondansetron, disintegrating, (Zofran ODT) 4 MG tablet polyethylene glycol 3350 (Miralax) 17 g packet Take 17 (seventeen) g by mouth once daily tamsulosin (Flomax) 0.4 MG capsule Take 1 (one) capsule by mouth once daily At the same time every day after a meal. thiamine (Vitamin B-1) 100 MG tablet Take 1 (one) tablet by mouth once daily vitamin D3 (Cholecalciferol) 25 MCG (1000 UNITS) tablet Take 1 (one) tablet by mouth once daily Review of Systems Unable to perform ROS: Mental status change Objective: Patient Vitals for the past 24 hrs: Temp Pulse Resp BP 03/08/22 1357 -- (!) 122 14 140/95 03/08/22 1359 98.2 ??F (36.8 ??C) (!) 127 18 140/95 03/08/22 1422 (!) 101.5 ??F (38.6 ??C) -- -- -- 03/08/22 1502 -- (!) 125 10 (!) 175/136 03/08/22 1506 -- (!) 124 18 (!) 174/106 03/08/22 1528 -- (!) 123 12 (!) 181/94 03/08/22 1600 -- (!) 124 20 (!) 153/103 03/08/22 1602 -- (!) 125 21 (!) 153/103 03/08/22 1700 -- (!) 121 20 (!) 174/103 03/08/22 1800 -- (!) 123 10 (!) 134/105 03/08/22 1900 -- (!) 129 17 (!) 173/119 03/08/22 2000 -- (!) 128 20 (!) 176/106 03/08/22 2100 -- (!) 133 24 (!) 179/108 03/08/22 2200 -- (!) 129 17 (!) 167/120 03/08/22 2330 -- (!) 134 26 141/95 03/09/22 0002 (!) 101.6 ??F (38.7 ??C) -- -- -- Physical Exam Vitals and nursing note reviewed. Constitutional: General: He is not in acute distress. Appearance: He is ill-appearing. HENT: Nose: Nose normal. Cardiovascular: Rate and Rhythm: Tachycardia present. Heart sounds: No murmur heard. Pulmonary: Effort: No respiratory distress. Abdominal: General: There is no distension. Musculoskeletal: General: Signs of injury present. Right lower leg: No edema. Left lower leg: No edema. Neurological: Mental Status: He is alert. He is disoriented. LABS: Labs reviewed CBC: Recent Labs Lab Units 03/08/22 1455 03/05/22 1110 WBC 10??3/uL 20.8* 11.0* RBC 10??6/uL 4.43 4.77 HGB g/dL 14.3 15.4 HCT % 42.9 45.4 BMP: Recent Labs Lab Units 03/08/22 1455 03/05/22 1441 NA mmol/L 143 142 CL mmol/L 102 107 CO2 mmol/L 29 19* BUN mg/dL 21 19 CREATININE mg/dL 0.87 1.01 CALCIUM mg/dL 9.5 10.0 Magnesium: No results for input(s): MG in the last 168 hours. Phosphorus: No results for input(s): PHOS in the last 168 hours. Coagulation: Recent Labs Lab Units 03/05/22 1110 PT Seconds 13.4 INR 1.0 Endocrine: No results for input(s): TSH, A1C in the last 168 hours. LFTs: Recent Labs Lab Units 03/08/22 1455 03/05/22 1441 AST U/L 74* 22 ALT U/L 26 13 TBILI mg/dL 0.4 0.4 ALB g/dL 2.7* 3.3* Recent Labs Component Name 03/08/22 2137 03/08/22 1726 03/08/22 1455 12/31/21 0412 02/25/21 1134 05/15/19 0911 05/13/19 2030 01/24/19 0154 CKTOTAL - - - 77 - 63 - 127 CKMBCK2 - - - - - 0.8 - - TROPONINI 0.016 0.023 0.032* - - <0.010 - - - = values in this interval not displayed. Culture Date/Time Value Ref Range Status 08/20/2020 12:29 PM No growth day 5 Final 08/20/2020 12:27 PM No growth day 5 Final Results for orders placed or performed during the hospital encounter of 03/08/22 EKG 12-LEAD Result Value Ref Range Ventricular Rate 123 BPM Atrial Rate 123 BPM P-R Interval 126 ms QRS Duration ms 78 ms Q-T Interval ms 312 ms QTC Calculation (Bezet) 446 ms Calculated P [place] 88 degrees Calculated R [place] 22 degrees Calculated T [place] 93 degrees Interpretation EKG SINUS TACHYCARDIA WITH OCCASIONAL PREMATURE VENTRICULAR COMPLEXES POSSIBLE LEFT ATRIAL ENLARGEMENT 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) ABNORMAL ECG WHEN COMPARED WITH ECG OF 30-DEC-2021 11:06, PREMATURE VENTRICULAR COMPLEXES ARE NOW PRESENT VENT. RATE HAS INCREASED BY [address] NO LONGER ELEVATED IN INFERIOR LEADS ST NO LONGER ELEVATED IN ANTERIOR LEADS Confirmed by SIRENA MARCELO MD ([id number]) on 03/08/2022 2:48:22 PM Procedure and Consults [facility] (From admission, onward) Start Ordered 03/08/22 1445 XR CHEST 1VW PORTABLE RAD ONE TIME 03/08/22 1437 03/08/22 1445 XR FOOT LEFT 3VW OR MORE RAD ONE TIME 03/08/22 1437 XR FOOT LEFT 3VW OR MORE Result Date: 03/05/2022 IMPRESSION: No evidence of osteomyelitis or other acute osseous abnormality. > Interpreting Provider: Rachel Phillips MD on 03/05/2022 12:24 PM MEDICATIONS FOR CURRENT ENCOUNTER: ?? SCHEDULED MEDICATIONS: ?? 0.9% NaCl injection 3 mL, Intracatheter, q8h ?? amLODIPine (Norvasc) tablet 5 mg, Oral, AT BEDTIME ?? aspirin chew tablet 81 mg, Oral, QDAY ?? atorvastatin (Lipitor) tablet 40 mg, Oral, QDAY ?? cefTRIAXone (Rocephin) 2,000 mg in 0.9% NaCl IV 50 mL IVPB, Intravenous, q24h ?? cloBAZam (Onfi) tablet 10 mg, Oral, BID ?? divalproex DR (Depakote) tablet 1,000 mg, Oral, BID ?? folic acid (Folvite) tablet 1 mg, Oral, QDAY ?? heparin injection 5,000 Units, Subcutaneous, BID ?? iopamidol (Isovue 370) 76 % contrast, Intravenous, Contrast - Once ?? lacosamide (Vimpat) tablet 200 mg, Oral, BID ?? levETIRAcetam (Keppra) tablet 2,000 mg, Oral, q12h ?? tamsulosin (Flomax) capsule 0.4 mg, Oral, QDAY ?? thiamine (Vitamin B-1) tablet 100 mg, Oral, QDAY ?? vancomycin (Vancocin) 1,750 mg in 500 mL NaCl IVPB, Intravenous, Once ?? vancomycin (Vancocin) IV dose per pharmacy, Does not apply, DIRECTED ?? [COMPLETED] acetaminophen (Tylenol) suppository 650 mg, Rectal, Now ?? [COMPLETED] cefTRIAXone (Rocephin) 2,000 mg in 0.9% NaCl IV 50 mL IVPB, Intravenous, Now ?? [COMPLETED] lactated ringers IV bolus, Intravenous, BOLUS IV ?? CONTINUOUS MEDICATIONS: ?? lactated ringers infusion, Intravenous, Continuous ?? PRN MEDICATIONS: ?? 0.9% NaCl injection 1-10 mL, Intracatheter, PRN ?? acetaminophen (Tylenol) suppository 650 mg, Rectal, q6h PRN Assessment/Plan: Acute: Metabolic encephalopathy he has a baseline dementia and the current possible pneumonia may be worsening his symptoms. fall/aspiration percussions sepsis lactic acidosis more than 2, heart rate more than 130, with fever. Chest x-ray and CT scan showed consolidation compatible with inflammatory/ infectious process. Lactic acid trending down with the IV fluid. Patient was started on ceftriaxone and vancomycin . Urinalysis was sent Blood and urine cultures. Elevated troponin Most likely demand ischemia, now trending down. EKG pending community-acquired pneumonia VS aspiration pneumonia Based on the images and the fact he has a fever. Currently on empiric antibiotics. Follow-up on procalcitonin Chronic: history of seizure: continue home medication including Keppra History of Alzheimer: Continue home meds hypertension: Resume Norvasc DVT PPx: Heparin subacute GI Prophylaxis: none Diet: NPO for now This patient was seen by me around 11:30 p.m. on and total time spent on this admission including review of outside records was about 60 minutes. NOTE: Above Assessment, [...] will be managed accordingly. Neha Palomino MD 03/09/2022 12:05 AM documented in this encounter Procedure Notes * Hansa Davis S - 03/17/2022 3:03 PM CDTProcedure(s): EEG VIDEO MONITORING Pt has been disconnected from cEEG. While taking electrodes off, breakdown was noted at Fp[facility]. Nurse was notified. * Sean Raymundo DO - 03/17/2022 9:47 AM CDT [facility] EEG REPORT Patient Name: Mojgan Tabor EEG#: [id number] Recording Start Time: 15:01 PM 03/16/2022 Epoch Start Time: 15:01 PM 03/16/2022 Epoch Stop Time: 14:21 PM 03/17/2022 Clinical History: Mojgan Tabor is a 62 year old male with seizures. This continuous video EEG monitoring is ordered to evaluate for seizures. Current medications Current Facility-Administered Medications Medication ??? 0.9% NaCl injection 3 mL And ??? 0.9% NaCl injection 1-10 mL ??? acetaminophen (Tylenol) tablet 1,000 mg ??? amLODIPine (Norvasc) tablet 5 mg ??? artificial tears ophthalmic solution 1 drop ??? aspirin chew tablet 81 mg ??? atorvastatin (Lipitor) tablet 40 mg ??? cefTRIAXone (Rocephin) 2,000 mg in 0.9% NaCl IV 50 mL IVPB ??? cloBAZam (Onfi) tablet 10 mg ??? divalproex sprinkle (Depakote Sprinkle) capsule 750 mg And ??? divalproex sprinkle (Depakote Sprinkle) capsule 500 mg ??? folic acid (Folvite) tablet 1 mg ??? heparin injection 5,000 Units ??? lacosamide (Vimpat) tablet 200 mg ??? levETIRAcetam (Keppra) tablet 2,000 mg ??? LORazepam (Ativan) injection 1 mg ??? metroNIDAZOLE (Flagyl) tablet 500 mg ??? oxyCODONE (Roxicodone) oral solution 5 mg Or ??? oxyCODONE (Roxicodone) oral solution 2.5 mg ??? perflutren lipid microsphere (Definity) injection 0.5 mL ??? polyethylene glycol 3350 (Miralax) packet 17 g ??? polyethylene glycol 3350 (Miralax) packet 17 g ??? tamsulosin (Flomax) capsule 0.4 mg ??? thiamine (Vitamin B-1) tablet 100 mg Description This is a continuous video EEG monitoring is 21-channels; consisting of 20 channels of EEG obtainedfrom electrodes placed on the scalp according to the international 10-20 system, T1 and T2 electrodes, and one channel of EKG monitoring. Background: Epoch Start Time: 15:01 PM 03/16/2022 Epoch Stop Time: 14:21 PM 03/17/2022 The background was symmetric, and consisted of moderately organized, continuous polymorphic theta activity. Variability was present. Reactivity was present. Stage 1 sleep was identified in the form of background attenuation and vertex waves. Epileptiform discharges were occasionally identified over the right fronto- temporal region (Fp2/F8 maximally). Focal slowing was identified over the right hemisphere in the form of right frontaldelta activity. There was a burst of electrographic activity comprising of right frontotemporal ygrzv-[id number]-[id number] waves of 1 Hz with admixed diffuse rhythmic delta activity associated with some chewing movements of 7 seconds duration occuring at 16:58 PM on 03/16/2022. This event is of indeterminate clinical significance. Activation procedures were not performed. EKG was observed throughout the recording. IMPRESSION This is an abnormal cEEG due to 1) right fronto-temporal epileptiform discharges, 2) focal slowing over the right hemisphere, and 3) generalized slowing. CLINICAL CORRELATION: From 03/16/2022 to 03/17/2022, this study was consistent with an increased tendency towards seizures, right hemispheric structural or functional dysfunction, and mild encephalopathy. Sean Raymundo DO * Aníbal Hopkins - 03/16/2022 7:57 PM CDT Pt has been connected to cEEG. All electrodes under 10 kOhms. No vitals were visible to put on record. * Sean Raymundo, - 03/12/2022 1:03 PM CDT EEG REPORT Patient Name: Mojgan Tabor Date: 03/12/2022 EEG#: [id number] Start Time: 07:53 AM 03/12/2022 Stop Time: 08:22 AM 03/12/2022 Clinical History: Mojgan Tabor is a 62 year old male with seizures. This EEG is ordered for seizures. Current medications Current Outpatient Medications Medication Instructions ??? acetaminophen (TYLENOL) 325 mg, Oral, EVERY 6 HOURS PRN ??? amLODIPine (NORVASC) 5 mg, Oral, AT BEDTIME ??? aspirin (ASPIRIN) 81 mg, Oral, DAILY ??? atorvastatin (LIPITOR) 40 mg, Oral, DAILY ??? cloBAZam (ONFI) 10 mg, Oral, 2 TIMES DAILY ??? divalproex DR (DEPAKOTE) 1,000 mg, Oral, 2 TIMES DAILY ??? folic acid (FOLVITE) 1 mg, Oral, DAILY ??? ibuprofen (MOTRIN) 600 mg, Oral, PRN ??? lacosamide (VIMPAT) 200 mg, Oral, 2 TIMES DAILY ??? levETIRAcetam (KEPPRA) 2,000 mg, Oral, EVERY 12 HOURS ??? Multiple Vitamin (One Daily Multivitamin Adult) TABS 1 tablet, Oral, DAILY ??? multivitamin daily tablet 1 tablet, Oral, DAILY ??? ondansetron (ZOFRAN) 4 mg, Intravenous, EVERY 8 HOURS PRN ??? ondansetron, disintegrating, (Zofran ODT) 4 MG tablet No dose, route, or frequency recorded. ??? polyethylene glycol 3350 (MIRALAX) 17 g, Oral, DAILY ??? tamsulosin (FLOMAX) 0.4 mg, Oral, DAILY, At the same time every day after a meal. ??? thiamine (VITAMIN B-1) 100 mg, Oral, DAILY ??? vitamin D3 (CHOLECALCIFEROL) 1,000 Units, Oral, DAILY Description This is a routine 21-channel EEG tracing consisting of 20 channels of EEG obtained from electrodes placed on the scalp according to the international 10- 20 system, T1 and T2 electrodes, and one channel of EKG monitoring. Background The background was symmetric. No well-developed posterior dominant rhythm was identified. Anterior-posterior gradient was absent. The background was continuous and consisted of generalized poorly-organized polymorphic theta frequency activity. Variability was present. Reactivity was present. Drowsystate was identified in the form of background attenuation and decreased myogenic artifact. Epileptiform discharges in the form of pfitd-swj-nioc wave complexes were occasionally identified over the right fronto-temporal region (Fp2, F8, T2)), and rarely in left fronto-temporal region (Fp1,F7). Activation procedures were not performed. EKG was observed throughout the recording. IMPRESSION This is an abnormal awake and drowsy EEG due to 1) bilateral fronto-temporal epileptiform discharges, more frequently on the right, and 2) generalized slowing. CLINICAL CORRELATION: This study is suggestive of increased tendency of seizures and mild encephalopathy. Ck Lorenzo MD I personally reviewed this study in its entirety and formulated the above report. Sean Raymundo DO documented in this encounter Consult Notes * Bebe Rowe MD - 03/23/2022 2:17 PM CDTAssociated Order(s): IP CONSULT TO GASTROENTEROLOGY GASTROENTEROLOGY CONSULT Mojgan Tabor Age: [age] year old Date of : 1960 Date of Admission: 03/08/2022 Reason for Consult: PEG tube placement Requesting Team: MED 2 Subjective: History of Present Illness: Mojgan Tabor is a 62 year old male with a PMHx of Refractory seizure disorder and CVA complicated by dysphagia and malnourishment with failure to maintain NG tube access for enteral feeding. Pt presented to [facility] on 03/08 by his family for worsening mental status. Workup revealed pulmonary infiltrates concerning for PNA and pt was started on Ceftriaxone/Vanc. Bcx on 03/08 positive for MSSA, MRSA swab positive. 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 Pt in hemodynamically stable condition and resting on room air during my encounter Pt limited historian but reported periumbilical abdominal pain when asked. Last EGD and colonoscopy as below. Aspirin: yes NSAIDs N\A Anticoagulants: no Past Medical History: Patient Active Problem List: [...] Sepsis without acute organ dysfunction (CMS/HCC) Bacteremia Pneumonia Ulcer of left foot (CMS/HCC) PAD (peripheral artery disease) (CMS/HCC) Protein calorie malnutrition (CMS/HCC) Past Medical History: Diagnosis Date ??? CVA (cerebral vascular accident) (CMS/HCC) ??? HTN (hypertension) ??? Seizure (CMS/HCC) Past Surgical History: Past Surgical History: Procedure Laterality Date ??? Leg Amputation, Below Knee Left 03/15/2022 Left; LEFT BKA POSS AKA Medications: Medications Prior to Admission Medication Sig Dispense Refill ??? acetaminophen (Tylenol) 325 MG tablet Take 1 (one) tablet by mouth every 6 hours as needed for Fever or Pain ??? amLODIPine (Norvasc) 5 MG tablet Take 1 (one) tablet by mouth at bedtime 60 tablet 3 ??? aspirin (Aspirin) 81 MG chew tablet Take 1 (one) tablet by mouth once daily 60 tablet 2 ??? atorvastatin (Lipitor) 40 MG tablet Take 1 (one) tablet by mouth once daily 60 tablet 2 ??? cloBAZam (Onfi) 10 MG tablet Take 1 (one) tablet by mouth 2 times daily 60 tablet 3 ??? divalproex DR (Depakote) 500 MG tablet Take 2 (two) tablets by mouth 2 times daily 120 tablet 11 ??? folic acid (Folvite) 1 MG tablet Take 1 (one) tablet by mouth once daily 60 tablet 2 ??? ibuprofen (Motrin) 600 MG tablet Take 1 (one) tablet by mouth as needed 30 tablet 0 ??? lacosamide (Vimpat) 200 MG tablet Take 1 (one) tablet by mouth 2 times daily 60 tablet 3 ??? levETIRAcetam (Keppra) 1000 MG tablet Take 2 (two) tablets by mouth every 12 hours 120 tablet 11 ??? Multiple Vitamin (One Daily Multivitamin Adult) TABS Take 1 tablet by mouth once daily ??? multivitamin daily tablet Take 1 (one) tablet by mouth once daily ??? ondansetron (Zofran) 2 MG/ML injection 4 (four) mg by Intravenous route every 8 hours as neededfor Nausea/Vomiting ??? ondansetron, disintegrating, (Zofran ODT) 4 MG tablet ??? polyethylene glycol 3350 (Miralax) 17 g packet Take 17 (seventeen) g by mouth once daily ??? tamsulosin (Flomax) 0.4 MG capsule Take 1 (one) capsule by mouth once daily At the same time every day after a meal. (Patient not taking: Reported on 03/10/2022) 30 capsule 2 ??? thiamine (Vitamin B-1) 100 MG tablet Take 1 (one) tablet by mouth once daily 30 tablet 2 ??? vitamin D3 (Cholecalciferol) 25 MCG (1000 UNITS) tablet Take 1 (one) tablet by mouth once daily30 tablet 2 Current Facility-Administered Medications Medication ??? 0.9% NaCl injection 3 mL And ??? 0.9% NaCl injection 1-10 mL ??? acetaminophen (Tylenol) tablet 650 mg ??? artificial tears ophthalmic solution 1 drop ??? aspirin chew tablet 81 mg ??? atorvastatin (Lipitor) tablet 40 mg ??? ceFAZolin (Ancef) 2 g in 0.9% NaCl IV 50 mL IVPB ??? folic acid (Folvite) tablet 1 mg ??? heparin injection 5,000 Units ??? hydrALAZINE (Apresoline) injection 10 mg ??? lacosamide (Vimpat) injection 200 mg ??? levETIRAcetam (Keppra) 2,000 mg in 0.9% NaCl IV 270 mL IVPB ??? LORazepam (Ativan) injection 0.5 mg ??? oxyCODONE (Roxicodone) oral solution 2.5 mg ??? perflutren lipid microsphere (Definity) injection 0.5 mL ??? polyethylene glycol 3350 (Miralax) packet 17 g ??? polyethylene glycol 3350 (Miralax) packet 17 g ??? PPN - PERIPHERAL LINE - ADULT - CLINIMIX ??? PPN - PERIPHERAL LINE - ADULT - CLINIMIX ??? tamsulosin (Flomax) capsule 0.4 mg ??? thiamine (Vitamin B-1) tablet 100 mg ??? valproate (Depacon) 1,000 mg in 0.9% NaCl IV 60 mL IVPB Followed by ??? [START ON 03/24/2022] valproate (Depacon) 500 mg in 0.9% NaCl IV 55 mL IVPB Allergies: Allergies Allergen Reactions ??? Clonazepam Psychiatric hallucinations Social History: Social History Tobacco Use ??? Smoking status: Former Packs/day: 1.00 Years: 15.00 Pack years: 15.00 Types: Cigarettes ??? Smokeless tobacco: Never Substance Use Topics ??? Alcohol use: No Comment: last drink 2015 Family History: family history is not on file. Review of Systems: Unable to obtain due to mental status Objective Physical Exam: BP 156/83 Pulse 87 Temp 98 ??F (36.7 ??C) (Axillary) Resp 19 Ht 1.829 m (6') Wt 68 kg (150 lb) SpO2 100% Wt Readings from Last 5 Encounters: 03/08/22 68 kg (150 lb) 03/05/22 62.6 kg (138 lb) 02/16/22 59.4 kg (131 lb) 01/03/22 63.2 kg (139 lb 5.3 oz) 12/09/21 59.4 kg (131 lb) Exam Alert, responds yes/no questions intermittently Abdomen soft, no distention or tenderness to palpation Labs: Recent Labs Component Name 03/23/22 0339 03/22/22 0351 03/21/22 0219 03/20/22 0330 03/19/22 0203 03/12/22 0158 03/11/22 1059 03/08/22 1455 03/05/22 1110 02/25/21 1135 02/25/21 1134 08/13/20 1558 07/18/19 1139 04/12/15 0350 04/11/15 0622 WBC 9.3 11.4* 9.5 12.7* 9.9 - 11.7* - 11.0* - - - 6.0 - 3.6 HGB 10.2* 11.1* 10.4* 9.9* 9.9* - 11.1* - 15.4 - - - 14.5 - 12.4* MCV 96.9 97.1 95.8 97.5 96.5 - 93.7 - 95.2 - - - 95.2 - 98.1* INR - - - - - - 1.2 - 1.0 - 1.1 - 1.0 - 0.9 - = values in this interval not displayed. Recent Labs Component Name 03/23/22 0339 03/22/22 0351 03/21/22 0219 NA 140 141 144 CL 106 106 110* CO2 24 28 28 BUN 9 5* 6* CREATININE 0.51* 0.49* 0.51* Recent Labs Component Name 03/17/22 1112 03/16/22 0619 03/14/22 2203 03/14/22 0458 03/12/22 0158 03/11/22 1059 AST 34 - - 35* - 60* ALT 21 - - ALKPHOS 73 - - 73 - 71 TBILI 0.2 - - 0.3 - 0.4 ALB 1.8* 1.6* 1.8* 1.7* - 1.9* - = values in this interval not displayed. Imaging: CT HEAD WO CONTRAST Result Date: 03/18/2022 IMPRESSION: 1.No acute intracranial hemorrhage, midline shift, or significant mass effect. Procedures: Per care everywhere: Colonoscopy 11/22/16: [facility] (3 small polyps removed) EGD 11/22/16: [facility] (antral erosion, mild duodenal bulb erythema) Assessment PEG tube evaluation for enteral feeding and medication Pt with hx of dysphagia as sequelae of CVA and seizure disorder. unsucessful pursuit of NG tube feedings. CT from 03/08/22 does not reveal adequate stomach window however this position can change since that time. Pt also with low albumin and malnutrition which could increase likelihood of poor wound healing. Per OIL FIELD PUMPER evaluation pt severe risk for aspiration and NPO status is to be maintained in the interim. ?Constipation Pt reporting periumbilical abdominal pain. No BMs documented since 03/13 Spiculated lung nodules seen on CT 03/08/22 Refractory Seizure disorder Hx of CVA on aspirin MSSA bacteremia. Last positive Bcx on 03/09/22. Negative Bcx on 03/12/22. On abx through 03/25 Acute Normocytic Anemia. Hx of occult B12 deficiency. Likely component of blood loss anemia from left AKA. Malnutrition, receiving PPN. PVD with Left AKA this admission on 03/15 Recommendations Patient seems to have a functional GI tract and an anticipated life expectancy > 30 days with malnutrition / poor volitional intake / malabsorption / need for gastric decompression / permanent neurological impairment . Patient has no absolute contraindications for PEG tube placement The benefits, risks, and alternatives of the procedure were discussed with patients sister/M, and from there obtain consent from [facility]. Timing of PEG placement TBD. Please ensure pt having adequate bowel movements, recommend suppository or enema to relieve constipation since pt is NPO Consider Anemia workup: Vitamin B12, Iron panel, ferritin, LDH, Haptoglobin NPO/ hold tube feeds after midnight. Hold pharmacologic VTE prophylaxis after midnight. Obtain CBC, INR, BMP, Mg, and Phos with AM labs. Ensure Hgb > 7, platelets > 50k, INR < 1.5, Mg >2, Phos >3, and K >4. Pt already on abx which will be sufficient for pre-procedure abx coverage DATE OF ENCOUNTER 03/24/22 Patient and above recommendations will be discussed with GI attending, Dr. Rowe. We will continue to follow this patient with you. Please contact us with further questions Archie Carreno MD Gastroenterology & Hepatology Fellow [facility] [employer]Y [employer]ACH * Ezio Sorto, RD/LD - 03/23/2022 10:38 AM CDTAssociated Order(s): IP CONSULT TO NUTRITIONAL SERV Clinical Nutrition Brief Note Nutrition Recommendations: NPO per OIL FIELD PUMPER TF recommendation if pt/family agree to EN support Jevity 1.5 at 60 ml/hr. Provides 2160 kcal, 92 g protein, 311 g carbohydrate, 1094 ml free water. +50 ml q 6 hrs free water flush or per MD if on IVF +100 ml q4 hrs free water flush or per MD if not on additional fluids Day 1 PPN contains 765 Kcal, 55 g protein and is composed of 545 kcalories Dextrose & 0 kcalories Lipid and will have a ~1:1 Acetate:Chloride Ratio with a total volume of 2000 mL. Goal PPN will contain 1,528 kcal, 65 gm protein, 408 kcal dextrose, & 860 kcal lipids in 2000 mL's to keep osmolarity between 700-900 mOsm/L. Comments: RD consulted for NPO for dysphagia; nutritional plan . NPO and receiving day 1 PPN. See recs above. New wt ordered. Will continue to monitor. Estimated Energy Needs: KCAL: 2040 (30kcal/kg ABW) Protein (g): 82-102 (1.2-1.5g/kg IBW) Fluid (ml): 1 ml/kcal Needs based on: Kcal/kg- (Comment) (based on ABW of 68kg) Recommended Access Route: TF Ascom # [id number] * Elmo Lawrence, - 03/16/2022 11:21 AM CDTAssociated Order(s): IP CONSULT TO NEUROLOGY Neurology Consult Note Patient: Mojgan Tabor Age: [age] year old Admission Date and Time: 03/08/2022 Reason for consult: concern for sz activity History of Presenting Illness: Mojgan Tabor is a 62 year old male Pt is a 62 y/o m with a pmhx of HTN, HLD, PVD, CVA (2015), refractory epilepsy, Alzheimer's (early onset), alcohol abuse, and cervical osteoarthritis. Neurology was consulted due to a CAFE MANAGER paged for unresponsiveness. At 1012 on 03/16/22 while working with PT his eyes rolled back, no limb jerking or rhythmic movements were noted. Primary doctor assessed the pt at 1028 and by 1035 pt was responding to questions appropriately. Of note, pt had a left above the knee amputation yesterday that reportedly went well. Per his family he was last seen normal on Tuesday before his surgery. Per family his baseline he is normally conversational without dementia/dementia features, which is different from previous documentation, which states he is AOx2. Patient is being treated with vancomycin/ceftriazone/flagyl for suspected pna/bactermia. Neurology was previously consulted on this patient on 03/09 for optimization of AEDs/ r/u subclinical seizures. He had reduced consciousness but this was believed to be due to infections and less likely seizures. A eeg tht was ordered on 03/12 showed bilateral fronto-temporal epileptiform discharges, more frequently on the right, and 2) generalized slowing. A CTH was negative. At that time it wasrecommended to continue keppra 2000mg BID, depakote DR 1000mg BID, lacosamide 200mg BID, clobazam 10mg BID. Depakote level was checked and found to be 99(range 50-100), keppra found to be 59(range 10-40) vimpat and clobazam levels pending. Pt missed 1018 am doses of AEDs Per family, semiology consists of staring off spells. Past Medical History No history on file. Past Medical History: Diagnosis Date ??? CVA (cerebral vascular accident) (CMS/HCC) ??? HTN (hypertension) ??? Seizure (CMS/HCC) No past surgical history on file. Allergies Allergies Allergen Reactions ??? Clonazepam Psychiatric hallucinations Family History No family history on file. Social History Social History Social History Narrative ??? Not on file Review of Systems General - Denies changes [...] or blood abnormalities Neurological - See HPI Objective: BP 139/84 Pulse 107 Temp (!) 100.1 ??F (37.8 ??C) (Axillary) Resp 16 Ht 1.829 m (6') Wt 68 kg (150 lb) SpO2 98% Temp (30hrs) Max:100.1 ??F (37.8 ??C) Body mass index is 20.34 kg/m??. Exam: General: Con - NAD, afebrile Heent - NCAT, MMM, anicteric Neck - No JVD, LAD, trachea midline CV - RRR for age, normal s1/s2, no m/r/g Pulm - CTAB, no w/r/r Abd - BS+, soft, NTND Ext: No c/c/e, 2+ dpp, normal ROM Cortical Function Mental Status Awake, staring off, not following commands, lip automatism, this state will break and he will make eye contact, lip smacking will stop Orientation AOx1 intermittently, during staring spell not alert or oriented Language no repetition, only will speak 1-2 words at a time Visual Ivan Intact bilaterally to confrontation Neglect No visual neglect noted, no tactile neglect noted Cranial Nerves II Pupils 3 mm and bilaterally reactive to light. Fundoscopic exam not performed. VIII did not comply with hearing assessment III/IV/ Extraocular muscles seem intact, will not follow commands for assessment IX/X Palate elevated symmetrically without phonation abnormalities noted. V Facial sensation symmetric XI Turnign head L and R spontaneously VII No facial palsy noted. XII Tongue is midline with normal movements and no atrophy noted. Motor Function Movement No abnormalities noted Bulk No abnormalities noted Tone increased tone bilateral hands Proximal Upper Distal Upper Proximal Lower Distal Lower Right 3/5 4/5 2/5 3/5 Left 3/5 4/5 2/5 amputated Muscle Stretch Reflexes BI TRI BR PAT ACH TOES Right 3 2 3 2 2 Down Left 3 2 3 2 n/a n/a Sensory Light Touch Symmetric and intact bilaterally Noxious Stimuli Symmetric and intact bilaterally Cerebellar EARNEST Gait Deferred Labs: Reviewed. EEG: will obtain Neuroimaging: CTH(03/11/22):IMPRESSION: ?? 1.No acute intracranial abnormality. 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 ?? Assessment and Recommendations: Mojgan Tabor is a 62 year old male Pt is a 62 y/o m with a pmhx of HTN, HLD, PVD, CVA (2015), priorhead injury, refractory epilepsy, Alzheimer's (early onset), alcohol abuse, and cervical osteoarthritis. Neurology was consulted due to a CAFE MANAGER page for unresponsiveness, concern for sz activity. Pt recently underwent a significant homeostatic insult due to his leg amputation which could certainly lower his seizure threshold. This combined with a recently missed am dosing of his AEDs warrants further investigation into any potential seizure activity, especially with his presentation of staring off that is consistent with his semiology Recommendations: 1)obtain ceeg 2) continue AED regiment at this time:vimpat 200mg BID, keppra 2000mg BID, onfi 10mg BID, and depakote 750mg BID and 500mg qd 3)follow up vimpat and onfi levels 4)if mental status does not improve, low threshold to repeat CTH 5)neurology to follow Discussed with Attending Physician, Siddhartha Lawrence DO Neurology Resident Associated attestation - Baldev Carl MD - 03/17/2022 4:07 PM CDT I am attesting this note on 03/17/2022 after rounding on this patient on neurology rounds. The dateof the service is 03/17/2022. NEUROLOGY ATTENDING NOTE The patient seen and examined with medical students and residents, I reviewed the history on rounds,examined and discussed with medical students and residents on General Neurology Team. I have reviewed and agree with attached note except as noted below: Summary: Patient is 62 year old male with a history of stroke, seizures and hypertension. He was admitted with pneumonia and bacteremia. He recently had a left leg amputation. The patient had a breakthrough seizure but may have missed a dose of antiepileptic drugs. EEG shows episodic discharges but no clearseizure activity. I spoke with his family today and they feel that he is back to his neurologic baseline now. Current Facility-Administered Medications Medication Dose Route Frequency Provider Last Rate Last Admin 0.9% NaCl injection 3 mL 3 mL Intracatheter q8h Bisesi, Jack R, DO 3 mL at 03/17/22 1346 And 0.9% NaCl injection 1-10 mL 1-10 mL Intracatheter PRN Bisesi, Jack R, DO 10 mL at 03/16/22 0148 acetaminophen (Tylenol) tablet 650 mg 650 mg Oral TID Petra Fuentes MD amLODIPine (Norvasc) tablet 5 mg 5 mg Oral AT BEDTIME Neha Palomino MD 5 mg at 03/16/22 2100 artificial tears ophthalmic solution 1 drop 1 drop Each Eye TID PRN Blair Mojica MD aspirin chew tablet 81 mg 81 mg Oral QDAY Neha Palomino MD 81 mg at 03/17/22 1004 atorvastatin (Lipitor) tablet 40 mg 40 mg Oral QDAY Neha Palomino MD 40 mg at 03/17/22 1004 cefTRIAXone (Rocephin) 2,000 mg in 0.9% NaCl IV 50 mL IVPB 2,000 mg Intravenous q24h Jack Trent DO Stopped at 03/17/22 1315 cloBAZam (Onfi) tablet 10 mg 10 mg Oral BID Neha Palomino MD 10 mg at 03/17/22 1004 divalproex sprinkle (Depakote Sprinkle) capsule 500 mg 500 mg Oral QDAY Petra Fuentes MD 500 mg at 03/17/22 1346 divalproex sprinkle (Depakote Sprinkle) capsule 750 mg 750 mg Oral BID Petra Fuentes MD 750 mg at1 1004 folic acid (Folvite) tablet 1 mg 1 mg Oral QDAY Neha Palomino MD 1 mg at 03/17/22 1005 heparin injection 5,000 Units 5,000 Units Subcutaneous TID Blair Mojica MD 5,000 Units at 03/17/22 1347 lacosamide (Vimpat) tablet 200 mg 200 mg Oral BID Blair Mojica MD 200 mg at 03/17/22 1005 levETIRAcetam (Keppra) 2,000 mg in 0.9% NaCl IV 270 mL IVPB 2,000 mg Intravenous q12h Perta Fuentes MD metroNIDAZOLE (Flagyl) tablet 500 mg 500 mg Oral q8h Blair Mojica MD 500 mg at 03/17/22 1351 oxyCODONE (Roxicodone) oral solution 2.5 mg 2.5 mg Oral q6h PRN Petra Fuentes MD perflutren lipid microsphere (Definity) injection 0.5 mL 0.5 mL Intravenous intra-Procedure multiple Blair Mojica MD polyethylene glycol 3350 (Miralax) packet 17 g 17 g Oral QDAY Blair Mojica MD 17 g at 03/17/22 1005 polyethylene glycol 3350 (Miralax) packet 17 g 17 g Oral QDAY PRN Blair Mojica MD tamsulosin (Flomax) capsule 0.4 mg 0.4 mg Oral QDAY Neha Palomino MD 0.4 mg at 03/17/22 1005 thiamine (Vitamin B-1) tablet 100 mg 100 mg Oral QDAY Neha Palomino MD 100 mg at 03/17/22 1005 Allergies Allergen Reactions Clonazepam Psychiatric hallucinations Past Medical History: Diagnosis Date CVA (cerebral vascular accident) (CMS/HCC) HTN (hypertension) Seizure (CMS/HCC) Past Surgical History: Procedure Laterality Date Leg Amputation, Below Knee Left 03/15/2022 Left; LEFT BKA POSS AKA Social History Tobacco Use Smoking status: Former Smoker Packs/day: 1.00 Years: 15.00 Pack years: 15.00 Smokeless tobacco: Never Used Vaping Use Vaping Use: Never used Substance Use Topics Alcohol use: No Comment: last drink 2015 Drug use: No Comment: occasional Family History Non-contributory to the patient's current condition Exam findings Vitals: 03/17/22 0415 03/17/22 0818 03/17/22 1232 03/17/22 1338 BP: 145/81 142/77 124/82 128/89 Pulse: 106 (!) 110 (!) 118 (!) 111 Resp: 18 Temp: 98.6 ??F (37 ??C) 97.3 ??F (36.3 ??C) 99 ??F (37.2 ??C) 99.5 ??F (37.5 ??C) SpO2: 99% 96% 95% 95% Weight: Height: Please see attached note for details on labs, radiology and ancillary testing. Lab Review Recent Labs Component Name 03/17/22 1112 03/16/22 0619 03/14/22 2203 WBC 11.2* 8.9 10.1 HGB 10.7* 10.0* 11.4* HCT 32.7* 31.0* 33.4* PLTCOUNT 344 282 295 Recent Labs Component Name 03/17/22 1112 POTASSIUM 3.8 CO2 29 BUN 10 CREATININE 0.53* GLUCOSE 116* CALCIUM 9.0 ALKPHOS 73 ALT 21 AST 34 EGFR >90 Recent Labs Component Name 04/11/15 0622 CHOL 196 TRIG 63 HDL 81 LDLCALC 102* Recent Labs Component Name 01/01/22 0349 05/12/19 0542 04/11/15 0622 HGBA1C 5.6 5.5 5.3 EEG IMPRESSION This is an abnormal cEEG due to 1) right fronto-temporal epileptiform discharges, 2) focal slowing over the right hemisphere, and 3) generalized slowing. Medical Decision Making: IMPRESSION/PLAN Active Hospital Problems Diagnosis Date Noted History of CVA (cerebrovascular accident) 12/11/2020 Priority: High Epilepsy, unspecified, not intractable, without status epilepticus ([facility]) 05/25/2019 Priority: High Bacteremia 03/11/2022 Priority: Not Prioritized Pneumonia 03/11/2022 Priority: Not Prioritized Ulcer of left foot ([facility]) 03/11/2022 Priority: Not Prioritized PAD (peripheral artery disease) ([facility]) 03/11/2022 Priority: Not Prioritized Protein calorie malnutrition ([facility]) 03/11/2022 Priority: Not Prioritized Sepsis without acute organ dysfunction ([facility]) 03/08/2022 Priority: Not Prioritized Hypertension 07/24/2015 Priority: Not Prioritized Seizure The patient has a history of stroke and seizure. Recommend continuing him on his seizure medications. He seems to be improving. EEG does not show any evidence of ongoing seizure activity. Time Spent in direct patient care: 81 minutes * Anna Membreno MD - 03/12/2022 3:05 PM CDTAssociated Order(s): IP CONSULT TO VASCULAR SURGERY [facility] Vascular Surgery Consult Note Name: Mojgan Tabor : 1960 Date of Service: 03/12/22 Attending Surgeon: Dr. Membreno Reason for Consult: Left Foot wound HPI: This is a 62 year old male with pmh of htn, CVA, HLD, alzheimer, and epilepsy brought to hospital after patient's family noted that he has worsening mental status at assisted. Patient was initially consulted to the vascular surgery service due to Left foot 2nd and 3rd digit dry gangrene. Plan was to follow up in clinic one week after discharge due to patient being unfit for surgical intervention. Patient was re consulted to the vascular surgery service for re-evaluation of LLE wounds as possible cause of patient's bacteremia. Past Medical History: Diagnosis Date CVA (cerebral vascular accident) ([facility]) HTN (hypertension) Seizure ([facility]) No past surgical history on file. No family history on file. Social History Socioeconomic History Marital status: Single Spouse name: Not on file Number of children: Not on file Years of education: Not on file Highest education level: Not on file Occupational History Not on file Tobacco Use Smoking status: Former Smoker Packs/day: 1.00 Years: 15.00 Pack years: 15.00 Smokeless tobacco: Never Used Vaping Use Vaping Use: Never used Substance and Sexual Activity Alcohol use: No Comment: last drink 2015 Drug use: No Comment: occasional Sexual activity: Not Currently Other Topics Concern Not on file Social History Narrative Not on file Social Determinants of Health Financial Resource Strain: Not on file Food Insecurity: No Food Insecurity Worried About Running Out of Food in the Last Year: Never true Ran Out of Food in the Last Year: Never true Transportation Needs: Not on file Physical Activity: Not on file Stress: Not on file Social Connections: Not on file Intimate Partner Violence: Not on file Housing Stability: Not on file Allergies Allergen Reactions Clonazepam Psychiatric hallucinations No current outpatient medications on file. Data: Labs: Recent Labs Component Name 03/12/2215703/11/22 1059 03/10/22 1147 WBC 12.4* 11.7* 15.4* HGB 11.3* 11.1* 11.9* HCT 33.4* 32.5* 36.1 MCV 94.1 93.7 96.0 Recent Labs Component Name 03/12/2215703/11/22 1059 03/10/22 1147 NA 139 139 140 CL 106 104 105 CO2 26 30* 25 BUN 10 7 14 CREATININE 0.55* 0.50* 0.53* CALCIUM 8.8 8.6 9.3 MAGNESIUM 1.8 1.8 1.7 PHOS 2.9 2.7* 2.0* Recent Labs Component Name 03/12/22 0158 03/11/22 1059 03/10/22 1147 03/09/22 0411 03/08/22 1455 03/03/18 1745 01/30/18 1255 11/28/17 0455 10/14/17 1349 10/13/17 1526 PROT - 5.9* - 6.7 7.3 - 6.9 - 7.0 8.4* ALB 1.9* 1.9* 2.1* 2.4* 2.7* - 3.7 - 3.9 4.8 TBILI - 0.4 - 0.6 0.4 - 0.4 - 0.6 1.4* DBILI - - - - - - 0.2 - 0.2 0.4 AST - 60* - 75* 74* - - 18 23 ALT - 26 - 27 26 - 10 - 9 11 ALKPHOS - 71 - 74 84 - 75 - 86 88 - = values in this interval not displayed. Recent Labs Component Name 03/11/22 1059 03/05/22 1110 02/25/21 1134 INR 1.2 1.0 1.1 No results for input(s): PHART, PO2ART, SUD4BPG, BEART in the last 81442 hours. I/O last 3 completed shifts: In: 2199.3 [P.O.:800; I.V.:1399.3] Out: 4125 [Urine:4125] Imaging: CT HEAD WO CONTRAST Result Date: 03/11/2022 [...] Wojciech Neil MD on 03/10/2022 6:[address] CHEST ABDOMEN PELVIS W CONT [...] pelvis. > Dictated by Brandee Celestin MD (financial institution vice president). I, John Graham MD have personally reviewed and interpreted this examination/study. > Interpreting Provider: John Graham MD on 03/09/2022 9:27 AM Review of Systems: Unable to perform ROS due to patient's altered mental status Physical Exam: BP 149/92 Pulse 109 Temp 97.7 ??F (36.5 ??C) (Axillary) Resp 24 Ht 6' (1.829 m) Wt 150 lb(68 kg) SpO2 97% Gen: NAD, asleep HEENT: Head NC/AT. EOMI. Neck without deformity CV: Limbs WWP, Doppler signal present on DP/PT arteries Pulm: Non labored breathing on RA Abdomen: Soft, non distended. Extremities: No BLE edema. Left medial great toe wound without surrounding erythema, or callor or induration. Left foot 2nd 3rd toe dry gangrene, no signs of infection MSK: No obvious trauma Skin:Left medial great toe wound without surrounding erythema, or callor or induration. Left foot 2nd 3rd toe dry gangrene, no signs of infection Neuro: ADORE Psych: Appropriate affect Assessment: This is a 62 year old male with what appears to be a developing dry ischemia of his left 2nd and 3rd toes and a small patch of skin on the dorsum of his foot. Plan/Recommondations: -Lesions on left foot not likely source of Bacteremia. Any surgical management, given history of peripheral vascular disease would likely end up in [facility]. - Recommend follow up in week after discharge in Dr. Membreno's outpatient clinic - Vascular surgery will sign off at this time. Please page with questions or concerns. Patient has been seen and discussed with my in night warehouse manager Dr. Koenig and attending physicianDr. Membreno. Otto Mcrae MD 03/12/2022 3:08 PM Attending/Teaching Physician Documentation I have seen and examined the patient with the resident, independently reviewed lab and imaging results and I agree with the findings and plan of care as documented by the resident. Plan for above knee amputation on the left in operating room on Tuesday,.Date of Service is date of resident signature in resident note * Leigh Mancia MD - 03/11/2022 12:28 PM CDTAssociated Order(s): IP CONSULT TO INFECTIOUS DISEASES Images from the original note were not included. [facility] Infectious Diseases Consultation Patient Name: Mojgan Tabor 1960 Room: Date of Admission: 03/08/2022 Date of Service: 03/11/2022 Primary Care Physician: Joyce Luevano APRN-DOOR FRAMER Attending Physician: Blair Mojica MD Reason for consultation: MSSA bacteremia HPI: Mojgan Tabor??is a 62 year old?? male??with PMH of HTN, HLD, PVD, CVA (2014), priorhead injury (from a fall?), refractory epilepsy, Alzheimer's (early onset), alcohol abuse, and cervical osteoarthritis, who presented to [facility] from SNF on 03/08/2022 for worsening mentation. Family came to visit the patient and noticed the patient was not as alert. Patient is normally A&Ox 2 at baseline. ?? Upon arrival to the ED, febrile Tmax 101.6, leukocytosis WBC of 20.8, lactic acid 3.0. Blood culture was sent, then started on ceftriaxone and IV vancomycin. CT C/A/P showed dependent left basilar consolidation with mild tree-in-bud opacities, and mild posterior right upper lobe tree-in-bud opacities, findings suggestive of aspiration pneumonia; also revealed multiple bilateral pulmonary nodules,representing multifocal infection vs adenocarcinoma. Noted chronic skin change to left foot, particularly the 2nd and 3rd toes with darker discoloration and ulcer to the medial aspect of the 1st MTP with erythema and edema. Vascular surgery was consulted, multilevel ABIs and arterial duplex was performed, showing severe peripheral vascular disease of left lower extremity, and left superficial femoral artery significant stenosis. On 03/11/2022, ID consulted for MSSA bacteremia with uncertain source. Past Medical History: Diagnosis Date ??? CVA (cerebral vascular accident) (CMS/HCC) ??? HTN (hypertension) ??? Seizure (CMS/HCC) Past Surgical History: Unable to obtain due to his mentation status. Social History Socioeconomic History ??? Marital status: Single Spouse name: Not on file ??? Number of children: Not on file ??? Years of education: Not on file ??? Highest education level: Not on file Occupational History ??? Not on file Tobacco Use ??? Smoking status: Former Smoker Packs/day: 1.00 Years: 15.00 Pack years: 15.00 ??? Smokeless tobacco: Never Used Vaping Use ??? Vaping Use: Never used [...] on file Housing Stability: Not on file Family History: Unable to obtain due to his mentation status. Allergies Allergen Reactions ??? Clonazepam Psychiatric hallucinations ROS: Unable to obtain due to his mentation status. Home medications: Prior to Admission medications Medication Sig Start Date End Date Taking? Authorizing Provider acetaminophen (Tylenol) 325 MG tablet Take 1 (one) tablet by mouth every 6 hours as needed for Fever or Pain 01/07/22 Roxanna Coburn MD amLODIPine (Norvasc) 5 MG tablet Take 1 (one) tablet by mouth at bedtime 01/07/22 Roxanna Coburn MD aspirin (Aspirin) 81 MG chew tablet Take 1 (one) tablet by mouth once daily 01/08/22 Roxanna Coburn MD atorvastatin (Lipitor) 40 MG tablet Take 1 (one) tablet by mouth once daily 01/08/22 Roxanna Coburn MD cloBAZam (Onfi) 10 MG tablet Take 1 (one) tablet by mouth 2 times daily 02/16/22 Yana Rm APRN-CNP divalproex DR (Depakote) 500 MG tablet Take 2 (two) tablets by mouth 2 times daily 02/16/22 Yana Rm APRN-CNP folic acid (Folvite) 1 MG tablet Take 1 (one) tablet by mouth once daily 01/08/22 Roxanna Coburn MD ibuprofen (Motrin) 600 MG tablet Take 1 (one) tablet by mouth as needed 01/07/22 Roxanna Coburn MD lacosamide (Vimpat) 200 MG tablet Take 1 (one) tablet by mouth 2 times daily 02/16/22 Yana Rm APRN-CNP levETIRAcetam (Keppra) 1000 MG tablet Take 2 (two) tablets by mouth every 12 hours 02/16/22 Yana Rm APRN-CNP Multiple Vitamin (One Daily Multivitamin Adult) TABS Take 1 tablet by mouth once daily 08/22/20 Filemon Hernandez MD multivitamin daily tablet Take 1 (one) tablet by mouth once daily 01/08/22 Roxanna Coburn MD ondansetron (Zofran) 2 MG/ML injection 4 (four) mg by Intravenous route every 8 hours as needed forNausea/Vomiting 01/07/22 Roxanna Coburn MD ondansetron, disintegrating, (Zofran ODT) 4 MG tablet 02/02/22 Filemon Hernandez MD polyethylene glycol 3350 (Miralax) 17 g packet Take 17 (seventeen) g by mouth once daily 01/08/22 Roxanna Coburn MD tamsulosin (Flomax) 0.4 MG capsule Take 1 (one) capsule by mouth once daily At the same time every day after a meal. Patient not taking: Reported on 03/10/2022 01/08/22 Roxanna Coburn MD thiamine (Vitamin B-1) 100 MG tablet Take 1 (one) tablet by mouth once daily 01/08/22 Roxanna Coburn MD vitamin D3 (Cholecalciferol) 25 MCG (1000 UNITS) tablet Take 1 (one) tablet by mouth once daily 01/08/22 Roxanna Coburn MD Inpatient medications ??? 0.9% NaCl 3 mL Intracatheter q8h ??? amLODIPine 5 mg Oral AT BEDTIME ??? aspirin 81 mg Oral QDAY ??? atorvastatin 40 mg Oral QDAY ??? cefTRIAXone 2,000 mg Intravenous q24h ??? cloBAZam 10 mg Oral BID ??? divalproex DR 1,000 mg Oral BID ??? folic acid 1 mg Oral QDAY ??? heparin 5,000 Units Subcutaneous TID ??? lacosamide 200 mg Oral BID ??? levETIRAcetam 2,000 mg Oral BID ??? potassium chloride 40 mEq Intravenous Once ??? tamsulosin 0.4 mg Oral QDAY ??? thiamine 100 mg Oral QDAY ??? vancomycin 1,000 mg Intravenous q8h ??? vancomycin (VANCOCIN) IV dose per pharmacy Does not apply DIRECTED PRN Medications ??? SALINE LOCK, INSERT AND MAINTAIN AND 0.9% NaCl AND 0.9% NaCl ??? acetaminophen ??? artificial tears ??? polyethylene glycol 3350 Current Abx IV vancomycin (03/08 - ) Ceftriaxone (03/08 - ) Prior Abx None OBJECTIVE: Vital Signs: BP 125/83 Pulse (!) 117 Temp 97.7 ??F (36.5 ??C) Resp 24 Ht 6' (1.829 m) Wt 150 lb (68 kg) SpO2 100% Temp (24hrs), Av.2 ??F (37.3 ??C), Min:97.6 ??F (36.4 ??C), Max:100.1 ??F (37.8 ??C) PHYSICAL EXAM General: No distress, nonverbal, cachectic Head: Normocephalic, atraumatic Eyes: PERRLA, anicteric sclerae Nose: No deformity Mouth and Throat: Poor dfentition Neck: No JVD Lungs: Clear to auscultation bilaterally Heart: RRR, S1, S2, no murmur Abdomen: Soft, non-distended, non-tender, +BS Extremities: LLE: chronic skin change to left foot, particularly the 2nd and 3rd toes with darker discoloration and ulcer to the medial aspect of the 1st MTP with erythema and edema. Skin: No rash Neurologic: Not follow commands Psychiatry: Unable to eval Lines: PIV Labs: CBC: Recent Labs Component Name 03/11/22 1059 03/10/22 1147 03/09/22 0135 WBC 11.7* 15.4* 23.0* RBC 3.47* 3.76* 4.18* HGB 11.1* 11.9* 13.6 HCT 32.5* 36.1 40.0 MCV 93.7 96.0 95.7 BMP: Recent Labs Component Name 03/11/22 1059 03/10/22 1147 03/09/22 0411 03/08/22 1455 NA 139 140 144 143 CL 104 105 100 102 CO2 30* 25 25 29 BUN 7 14 15 21 CREATININE 0.50* 0.53* 0.63* 0.87 ALB 1.9* 2.1* 2.4* 2.7* PROT 5.9* - 6.7 7.3 estimated creatinine clearance is 149.2 mL/min (A) (by C-G formula based on SCr of 0.5 mg/dL (L)). LFTs: Recent Labs Component Name 03/11/22 1059 03/09/22 0411 03/08/22 1455 03/05/22 1441 12/30/21 0119 12/29/21 0721 12/27/21 0117 12/21/21 1245 05/01/21 2159 02/25/21 1212 08/13/20 1700 06/18/19 1426 01/24/19 0154 01/22/19 0425 01/14/19 0123 12/27/18 1239 11/27/18 2332 10/21/18 1231 08/07/18 1257 06/09/18 2355 04/30/18 1025 03/03/18 1745 01/30/18 1255 01/09/18 1451 11/28/17 0455 10/14/17 1349 10/13/17 1526 08/09/15 0349 04/11/15 0622 ALKPHOS 71 74 84 89 62 73 74 71 66 51 64 76 80 65 59 65 65 53 58 74 55 62 75 81 94 86 88 115 93 ALT 26 27 26 13 20 27 26 14 10 9 11 7 10 12 15 12 13 8 5 11 9 10 10 8 10 9 11 16 10 AST 60* 75* 74* 22 20 25 32 22 19 17 21 13 13 14 22 27 25 15 15 16 18 23 14 15 18 18 23 16 14 Coagulation: Recent Labs Component Name 03/11/22 1059 03/05/22 1110 02/25/21 1134 PT 15.4* 13.4 13.5 INR 1.2 1.0 1.1 01/30/18 15:01 09/05/18 22:52 HIV Antigen/Antibody 1 & 2 Non-reactive Non-reactive Hepatitis C Antibody Non-reactive MICROBIOLOGY: Blood culture: 03/08/2022: 1/2 Growth of Staphylococcus aureus??(MSSA) 03/09/2022: 1/2 Growth of Staphylococcus aureus??(MSSA) Staphylococcus aureus JELLY Clindamycin 0.25 ug/mL Susceptible Doxycycline <=0.5 ug/mL Susceptible Gentamicin <=0.5 ug/mL Susceptible Inducible Clindamycin Resistance NEG ug/mL Neg Linezolid 2 ug/mL Susceptible Oxacillin 0.5 ug/mL Susceptible Tetracycline <=1 ug/mL Susceptible Trimethoprim-sulfamethoxazole <=10 ug/mL Susceptible Vancomycin 1 ug/mL Susceptible 03/11/2022: x 2 in process Urine culture: 03/08/2022: No growth (<100 CFU/mL) HISTOPATHOLOGY: None at this admission. IMAGING & PROCEDURE: XR FOOT LEFT 3VW OR MORE (03/08/2022): No evidence of acute fracture or dislocation. No cortical erosions or focal mineralization to suggest osteomyelitis. However radiographs are insensitive for detection of early osteomyelitis. A soft tissue defect with adjacent swelling is noted medial to the first metatarsal head. The joint spaces are maintained. There is diffuse bony mineralization. Vascular calcifications are noted. CT CHEST ABDOMEN PELVIS W CONT (03/08/2022): 1. Dependent left basilar consolidation with mild tree-in-bud opacities. Mild posterior right upperlobe tree-in-bud opacities. This concerning for aspiration pneumonia. 2. Multiple bilateral pulmonary nodules as detailed above including a 1.8 cm spiculated nodule. This may represent a multifocal infection although adenocarcinoma can have a similar appearance. 3 months follow-up is recommended. 3. No acute abnormality in the abdomen or pelvis. LUIZ (03/09/2022): Abnormal left lower extremity arterial physiologic study consistent with severe peripheral vasculardisease measuring 0.3 0.5. Normal right lower extremity arterial physiologic study. VAS LEFT ARTERIAL DUPLEX LE (03/09/2022): Eleveated velocities in the mid left superficial femoral artery suggestive of a hemodynamically significant stenosis. CT HEAD WO CONTRAST (03/11/2022): 1. No acute intracranial abnormality. 2. Complete opacification of the right maxillary sinus with extension of low- density material into the posterior nasal cavity through the widened ostium, likely representing antrochoanal polyp. TTE (03/11/2022): The left ventricle is normal size. Left ventricular systolic function is mildly decreased with an ejection fraction by Biplane Method of Discs of 47%. Left ventricular segmental wall motion is abnormal, please see wall motion graphic. The left ventricular diastolic function is abnormal (Grade I), consistent with low normal left ventricle filling pressures. No significant valvular abnormalities. ASSESSMENT AND RECOMMENDATIONS: 1. Staphylococcus aureus??(MSSA) bacteremia: ?? BCx positive 03/08, no negative BCx yet. Source potentially from left foot ulcer; pneumonia could be another source but another to collect sputum. ?? TTE w no significant valvular abnormalities. ?? On IV vancomycin and ceftriaxone for now due to #2 and #3. 2. Left foot ulcer in the setting of severe PVD of left lower extremity: ?? Concern for osteomyelitis. Recommend MRI of left foot to support the diagnosis. Ideally bone bopsy to be performed by vascular surgery vs IR to confirm the diagnosis, and send culture to guide Abxtreatment. ?? Given severe PVD, recommend vascular surgery re-evaluation for re-vascularization. 3. HAP with aspiration pneumonia: ?? Patient with increased risk for aspiration: AMS, dysphagia, seizure disorder. ?? CT Chest with dependent left basilar consolidation and opacities. ?? Continue IV vancomycin and ceftriaxone, and add metronidazole for anaerobe coverage. Duration for at least 7 to 14 days, based on clinical improvement. 4. Multiple bilateral pulmonary nodules: multifocal infection vs malignancy related. Recommend repeat image after Abx therapy and follow up with PCP. 5. Acute on chronic encephalopathy. 6. Dysphagia. 7. Hx of refractory epilepsy. 8. Severe Protein calorie malnutrition. 9. Renal function: Estimated Creatinine Clearance: 149.2 mL/min (A) (by C-G formula based on SCr of0.5 mg/dL (L)). Plan/Recommendations: - Continue IV vancomycin (goal trough 15-20), ceftriaxone 2 g IV q24h. - Start metronidazole 500 mg PO q8h. - Follow repeat blood cultures - MRI of left foot w contrast for evaluation of osteomyelitis. If MRI supports the diagnosis of osteomyelitis, ideally bone bopsy for pathology diagnosis to be performed by vascular surgery vs IR, and send culture to guide Abx treatment. - Given severe PVD of left lower extremity and potentially the source of Staphylococcus aureus bacteremia, recommend vascular surgery re-evaluation for re-vascularization. - Regarding multiple bilateral pulmonary nodules, recommend repeat CT chest after Abx therapy and follow up with PCP. Thank you for allowing us to participate in the care of this patient. We will continue to follow and monitor. Primary team: MED 3 (Plan discussed with Dr. Mojica) >35 minutes spent on the care of this patient. > 50% was spent in counseling and coordinationof care that included the patient and the primay team. Leigh Mancia M.D., PhD. Infectious Diseases (Team 2) Pager [phone] * Angelina Gould MSW - 03/11/2022 10:50 AM CDTAssociated Order(s): IP CONSULT TO ANCHOR OPERATOR Facility Admission Note Admitted From: [facility] Level of Care (Skilled, Residential, Assisted, Long-Term, Usp): [facility] Primary Payor at Facility: Raf Can patient Return: Yes Facility Contact: Myra/admissions [phone] Physician Following at Facility: Does Patient/Family want them to Return?: Yes Family/Support Name/Contact: Adriane Hilliard (sister) [phone] Number of Skilled Days Used (if applicable): n/a Prior Level of Functioning: Uses w/c Disposition/Anticipated Level of Care at Discharge: [place] [facility] Anticipated mode of transport: ambulance Special Testing Requirements: Comments: Per conversation with business unit manager, family would like if patient could go to rehab at [facility] again if possible Name/Phone number: Angelinavinicius Gould, FLOOR SURFACER [phone] * Ezio Sorto, MINH/LD - 03/10/2022 9:51 AM CDTAssociated Order(s): IP CONSULT TO NUTRITIONAL SERV Initial Nutrition Assessment Brief Synopsis: Patient is dx with malnutrition; Specific criteria can be found in assessment below Nutrition Plan: NPO now Further diet per OIL FIELD PUMPER Add Ensure Plus High Protein (1.5 kcal) (350 kcal, 20 grams pro, 40 grams CHO) TID when PO diet starts If need EN support. TF recommendation Jevity 1.5 at 60 ml/hr. Provides 2160 kcal, 92 g protein, 311 g carbohydrate, 1094 ml free water. +50 ml q 6 hrs free water flush or per MD if on IVF +100 ml q4 hrs free water flush or per MD if not on additional fluids Recommendations to Physician: see above. Comments: RD consulted for MST 2 with wt loss and decreased PO. Pt confused. Severe fat and muscle wasting noted. Meets the severe malnutrition criteria. OIL FIELD PUMPER recommended NPO yesterday. See TF recs above if needed. No BM documented. RD following. Assessment: Med/Surg History and Clinical Diagnoses: a PMHx of Alzheimer's disease who is being evaluated for AMS. Pt reportedly presented with worsened mental status from baseline, along with tachycardia and fever. Pt labs reportedly demonstrate normal UA, elevated lactic acid, elevated troponin, and WBC over20,000. Height: 6' (182.9 cm) Weight: 150 lb (68 kg) BMI: Body mass index is 20.34 kg/m??. BMI Range: Normal IBW/lb (Calculated) Male: 178 , Recent Weights/Methods 12/09/2021 1023 12/21/2021 1236 01/01/2022 0200 01/02/2022 0200 01/03/2022 0300 02/16/2022 1107 03/05/2022 1017 03/08/2022 1359 Weight: 131 lb (59.4 kg) 130 lb (59 kg) 143 lb 8.3 oz (65.1 kg) 142 lb 3.2 oz (64.5 kg) 139 lb 5.3 oz (63.2 kg) 131 lb (59.4 kg) 138 lb (62.6 kg) 150 lb (68 kg) Weight Method (Utilize Scales): -- Estimated Bedscale Bedscale Bedscale -- Stated Estimated Wt Comments: monitoring. Diet order accuracy Current diet order: NPO Nutrition recommendation: agree with current nutrition order P.O.Intake for the past 48 hrs: No data recorded Supplement(s) Consumed- Last 48 hours None Food Allergies: No known food allergies Chewing/Swallowing: Dysphagia Pain affecting intake: No Estimated Needs: KCAL: 0 (30kcal/kg ABW) Protein (g): 82-102 (1.2-1.5g/kg IBW) Fluid (ml): 1 ml/kcal Needs based on: Kcal/kg- (Comment) (based on ABW of 68kg) Recommended Access Route: (pending) Malnutrition Etiology: Malnutrition in the context of: chronic disease, Malnutrition Severity: Severe BMI: Body mass index is 20.34 kg/m??. GI Concerns: None Nutrition Focused Physical Assessment: Loss of Subcutaneous Fat Orbital: Severe Buccal: Severe Tricep: Severe Muscle Loss Temples (Temporalis Muscle): Severe Clavicles (Pectoralis & Deltoids): Severe Shoulders (Deltoids): Severe Interosseous Muscle: Severe Pertinent Nutrition Labs: Recent Labs Component Name 03/09/22 0411 03/08/22 1455 03/05/22 1441 BUN 15 21 19 CREATININE 0.63* 0.87 1.01 NA 144 143 142 POTASSIUM 4.0 4.0 4.1 CL 100 102 107 CO2 25 29 19* GLUCOSE 134* 113 114 CALCIUM 9.3 9.5 10.0 PROT 6.7 7.3 7.8 ALB 2.4* 2.7* 3.3* TBILI 0.6 0.4 0.4 ALKPHOS 74 84 89 ALT 27 26 13 AST 75* 74* 22 ANIONGAP 23* 16 20* BCR 24* 24* 19 OSMOLALITY 301* 300 297 AGRATIO 0.6* 0.6* 0.7* EGFR >90 >90 85* Pertinent Nutrition Medications: Current Facility-Administered Medications Medication ??? 0.9% NaCl injection 3 mL And ??? 0.9% NaCl injection 1-10 mL ??? acetaminophen (Tylenol) suppository 650 mg ??? amLODIPine (Norvasc) tablet 5 mg ??? aspirin chew tablet 81 mg ??? atorvastatin (Lipitor) tablet 40 mg ??? cefTRIAXone (Rocephin) 2,000 mg in 0.9% NaCl IV 50 mL IVPB ??? cloBAZam (Onfi) tablet 10 mg ??? folic acid (Folvite) tablet 1 mg ??? heparin injection 5,000 Units ??? iopamidol (Isovue 370) 76 % contrast ??? lacosamide (Vimpat) injection 200 mg ??? lactated ringers infusion ??? levETIRAcetam (Keppra) 2,000 mg in 0.9% NaCl IV 270 mL IVPB ??? tamsulosin (Flomax) capsule 0.4 mg ??? thiamine (Vitamin B-1) tablet 100 mg ??? valproate (Depacon) 333 mg in 0.9% NaCl IV 53.3 mL IVPB ??? vancomycin (Vancocin) 1,250 mg in 250 mL NaCl IVPB Premix ??? vancomycin (Vancocin) IV dose per pharmacy Skin/Wound: wound to foot Education needed: None Education Provided: Not appropriate (pt confused) Nutrition Care Process (1) Nutrition Diagnostic Statement: Malnutrition severity: : Severe related to:: inadequate protein-energy intake as evidenced by:: loss of muscle mass;loss of subcutaneous fat Nutrition Diagnostic Statement Progress: New diagnostic statement established Nutrition Intervention: Enteral nutrition:;Meals and snacks: Monitoring: GI, BM, labs, meds, weight Evaluation: Nutrition Goal: Total intake will meet estimated nutrient needs Nutrition Goal Timeframe: Throughout stay Nutrition Goal Progress: New goal established Ascom # [id number] * Suzan Hope MD - 03/09/2022 3:17 PM CDTAssociated Order(s): IP CONSULT TO NEUROLOGY General Neurology Consult History: Reason for Consult: confirm anti-seizure regimen + rule out subclinical seizures 62yo M who was brought in from assisted due to 'worsening mental status.' Per chart, the patient has dementia and is not functional at baseline. At [facility], patient found to be tachycardic and febrile with pneumonia and bacteremia. No witnessed seizure or seizure-like activity noted. Of note, patient has a history of refractory focal epilepsy and follows in [facility] epilepsy clinic. Hewas last seen in clinic on 02/16/22 where anti-seizure regimen (listed below in meds) were not changed. He was also admitted to the epilepsy monitoring unit from 12/21-01/07 to quantify seizure burden. During this admission, he had frequent subclinical electrographic seizures. Clobazam was added and valproic acid was increased and patient was discharged to a [facility] facility. Medical Hx- hypertension, CVA, hyperlipidemia, Alzheimer's disease, epilepsy Anti-seizure meds- levetiracetam 2000mg bid, depakote DR 1000mg bid, lacosamide 200mg bid and clobazam 10mg bid Surgical Hx- EARNEST given mental statusu Allergies- clonazepam Family Hx- EARNEST given mental status Social Hx- tobacco: former smoker, alcohol: unknown, illicit drugs: unknown ROS- EARNEST given mental status Objective: Exam: Oriented to name only. States 64 years old and did not answer when asked about location or date Mild L exotropia Face symmetric Raises arms against gravity Does not raise legs against gravity when asked Unable to assess sensation to light touch Finger to nose grossly intact in each arm Gait not assessed Assessment/Plan: 62yo M who presents from home with reduced consciousness. This is likely due to current infectious processes including pneumonia and bacteremia. There have been no witnessed events concerning for seizures. Infections reduce the seizure threshold so it is prudent for the infectious processes to be treated accordingly. No indication for EEG at this time, will consider if mental status does not return to baseline after treatment of pneumonia and bacteremia. Continue anti-seizure regimen below. - continue levetiracetam 2000mg bid - continue depakote DR 1000mg bid - continue lacosamide 200mg bid - continue clobazam 10mg bid - check VPA level on 03/10 at 0830 (30 minutes before scheduled dose) - order clobazam and lacosamide levels - treatment of pneumonia and bacteremia per primary team - ensure no metabolic derangments. Check Mg and Phos, goal >2 and >4 respectively - no cEEG at this time - neurology will continue to follow Patient to be discussed and seen with neurology attending, Dr. Carl, on 03/10. Please contact with questions/concerns. Suzan Hope MD Neurology, PGY-4 Associated attestation - Baldev Carl MD - 03/10/2022 12:06 PM CDT I am addending a note that was written on 03/09/2022. I am addending this after seeing the patient on neurology rounds on 03/10/2022. The date of this note should be 03/10/2022. NEUROLOGY ATTENDING NOTE The patient seen and examined with medical students and residents, I reviewed the history on rounds,examined and discussed with medical students and residents on General Neurology Team. I have reviewed and agree with attached note except as noted below: Summary: Patient is 62 year old male with refractory epilepsy. He was transferred from his assisted withworsening mental status. He has a history of dementia. He is found to be tachycardic and febrile and work-up revealed pneumonia and bacteremia. This is being treated currently. Evidently he has been compliant with his seizure medications. Current Facility-Administered Medications Medication Dose Route Frequency Provider Last Rate Last Admin 0.9% NaCl injection 3 mL 3 mL Intracatheter q8h Jack Trent DO 3 mL at 03/10/22 0601 And 0.9% NaCl injection 1-10 mL 1-10 mL Intracatheter PRN Jack Trent DO acetaminophen (Tylenol) suppository 650 mg 650 mg Rectal q6h PRN Jack Trent DO amLODIPine (Norvasc) tablet 5 mg 5 mg Oral AT BEDTIME Neha Palomino MD 5 mg at 03/09/22 2152 aspirin chew tablet 81 mg 81 mg Oral QDAY Neha Palomino MD 81 mg at 03/10/22 0949 atorvastatin (Lipitor) tablet 40 mg 40 mg Oral QDAY Neha Palomino MD 40 mg at 03/10/22 0949 cefTRIAXone (Rocephin) 2,000 mg in 0.9% NaCl IV 50 mL IVPB 2,000 mg Intravenous q24h Jack Trent DO Stopped at 03/09/22 1250 cloBAZam (Onfi) tablet 10 mg 10 mg Oral BID Neha Palomino MD 10 mg at 03/10/22 0949 folic acid (Folvite) tablet 1 mg 1 mg Oral QDAY Neha Palomino MD 1 mg at 03/10/22 0949 heparin injection 5,000 Units 5,000 Units Subcutaneous TID Blair Mojica MD iopamidol (Isovue 370) 76 % contrast Intravenous Contrast - Once Elmo Ozuna MD 100 mLat 03/08/22 2151 lacosamide (Vimpat) injection 200 mg 200 mg Intravenous BID Vicky Silva MD 200 mg at 03/10/22 0949 lactated ringers infusion Intravenous Continuous Jack Trent DO 125 mL/hr at 03/10/22 0811 Rate Verify at 03/10/22 0811 levETIRAcetam (Keppra) 2,000 mg in 0.9% NaCl IV 270 mL IVPB 2,000 mg Intravenous q12h Vicky Silva MD Stopped at 03/10/22 1149 tamsulosin (Flomax) capsule 0.4 mg 0.4 mg Oral QDAY Neha Palomino MD 0.4 mg at 03/10/22 0950 thiamine (Vitamin B-1) tablet 100 mg 100 mg Oral QDAY Neha Palomino MD 100 mg at 03/10/22 0948 valproate (Depacon) 333 mg in 0.9% NaCl IV 53.3 mL IVPB 333 mg Intravenous q6h Vicky Silva MD Stopped at 03/10/22 0604 vancomycin (Vancocin) 1,250 mg in 250 mL NaCl IVPB Premix 1,250 mg Intravenous q12h Ck Cortez MD 200 mL/hr at 03/10/22 1150 1,250 mg at 03/10/22 1150 vancomycin (Vancocin) IV dose per pharmacy Does not apply DIRECTED Ck Cortez MD Allergies Allergen Reactions Clonazepam Psychiatric hallucinations Past Medical History: Diagnosis Date CVA (cerebral vascular accident) (CMS/HCC) HTN (hypertension) Seizure (CMS/HCC) No past surgical history on file. Social History Tobacco Use Smoking status: Former Smoker Packs/day: 1.00 Years: 15.00 Pack years: 15.00 Smokeless tobacco: Never Used Vaping Use Vaping Use: Never used Substance Use Topics Alcohol use: No Comment: last drink 2015 Drug use: No Comment: occasional No family history on file. Exam findings Vitals: 03/09/22 2152 03/10/22 0557 03/10/22 0743 03/10/22 0805 BP: 141/87 160/92 150/83 (!) 169/100 Pulse: 107 (!) 117 (!) 114 Resp: Temp: 98.7 ??F (37.1 ??C) 98.8 ??F (37.1 ??C) SpO2: 97% 94% 97% Weight: Height: Oriented to his name. Regards, blinks to threat bilaterally. Moves all extremities to stimulation. Please see attached note for details on labs, radiology and ancillary testing. Lab Review Recent Labs Component Name 03/09/22 0135 03/08/22 1455 03/05/22 1110 WBC 23.0* 20.8* 11.0* HGB 13.6 14.3 15.4 HCT 40.0 42.9 45.4 PLTCOUNT 160 211 176 Recent Labs Component Name 03/09/22 0411 POTASSIUM 4.0 CO2 25 BUN 15 CREATININE 0.63* GLUCOSE 134* CALCIUM 9.3 ALKPHOS 74 ALT 27 AST 75* EGFR >90 Recent Labs Component Name 04/11/15 0622 CHOL 196 TRIG 63 HDL 81 LDLCALC 102* Recent Labs Component Name 01/01/22 0349 05/12/19 0542 04/11/15 0622 HGBA1C 5.6 5.5 5.3 Medical Decision Making: IMPRESSION/PLAN Active Hospital Problems Diagnosis Date Noted Sepsis without acute organ dysfunction (CMS/HCC) 03/08/2022 Priority: Not Prioritized The patient likely has mental status changes related to his underlying infectious issues. Continue current seizure platelet medications. CT of the head to evaluate for any other lesions that may be contributing to his symptoms such as a subdural hematoma. Time Spent in direct patient care: 82 minutes * Anna Membreno MD - 03/09/2022 2:24 PM CDTAssociated Order(s): IP CONSULT TO VASCULAR SURGERY [facility] Vascular Surgery Consult Note Name: Mojgan Kandi Tabor : 1960 Date of Service: 03/09/22 Attending Surgeon: Dr. Membreno Reason for Consult: LLE 2nd and 3rd toe wounds HPI: This is a 62 year old male with pmh of htn, CVA, HLD, alzheimer, and epilepsy brought to hospital after patient's family noted that he has worsening mental status at assisted. Patient was diagnosed w/ pneumonia and he is septic with an elevated WBC, lactic, tachycardia, and fever. He had an appointment to take a look at his left lower extremity on 03/10/[address] Membreno as she had previously done angiogram w/ angioplasty of LLE AT and SFA. Past Medical History: Diagnosis Date CVA (cerebral vascular accident) (CMS/HCC) HTN (hypertension) Seizure (CMS/HCC) No past surgical history on file. No family history on file. Social History Socioeconomic History Marital status: Single Spouse name: Not on file Number of children: Not on file Years of education: Not on file Highest education level: Not on file Occupational History Not on file Tobacco Use Smoking status: Former Smoker Packs/day: 1.00 Years: 15.00 Pack years: 15.00 Smokeless tobacco: Never Used Vaping Use Vaping Use: Never used Substance and Sexual Activity Alcohol use: No Comment: last drink 2015 Drug use: No Comment: occasional Sexual activity: Not Currently Other Topics Concern Not on file Social History Narrative Not on file Social Determinants of Health Financial Resource Strain: Not on file Food Insecurity: No Food Insecurity Worried About Running Out of Food in the Last Year: Never true Ran Out of Food in the Last Year: Never true Transportation Needs: Not on file Physical Activity: Not on file Stress: Not on file Social Connections: Not on file Intimate Partner Violence: Not on file Housing Stability: Not on file Allergies Allergen Reactions Clonazepam Psychiatric hallucinations Current Outpatient Medications: acetaminophen (Tylenol) 325 MG tablet, Take 1 (one) tablet by mouth every 6 hours as needed for Fever or Pain, Disp: , Rfl: amLODIPine (Norvasc) 5 MG tablet, Take 1 (one) tablet by mouth at bedtime, Disp: 60 tablet, Rfl: 3 aspirin (Aspirin) 81 MG chew tablet, Take 1 (one) tablet by mouth once daily, Disp: 60 tablet, Rfl:2 atorvastatin (Lipitor) 40 MG tablet, Take 1 (one) tablet by mouth once daily, Disp: 60 tablet, Rfl:2 cloBAZam (Onfi) 10 MG tablet, Take 1 (one) tablet by mouth 2 times daily, Disp: 60 tablet, Rfl: [address] (Depakote) 500 MG tablet, Take 2 (two) tablets by mouth 2 times daily, Disp: 120 tablet, Rfl: 11 folic acid (Folvite) 1 MG tablet, Take 1 (one) tablet by mouth once daily, Disp: 60 tablet, Rfl: 2 ibuprofen (Motrin) 600 MG tablet, Take 1 (one) tablet by mouth as needed, Disp: 30 tablet, Rfl: 0 lacosamide (Vimpat) 200 MG tablet, Take 1 (one) tablet by mouth 2 times daily, Disp: 60 tablet, Rfl: 3 levETIRAcetam (Keppra) 1000 MG tablet, Take 2 (two) tablets by mouth every 12 hours, Disp: 120 tablet, Rfl: 11 Multiple Vitamin (One Daily Multivitamin Adult) TABS, Take 1 tablet by mouth once daily, Disp: , Rfl: multivitamin daily tablet, Take 1 (one) tablet by mouth once daily, Disp: , Rfl: ondansetron (Zofran) 2 MG/ML injection, 4 (four) mg by Intravenous route every 8 hours as needed for Nausea/Vomiting, Disp: , Rfl: ondansetron, disintegrating, (Zofran ODT) 4 MG tablet, , Disp: , Rfl: polyethylene glycol 3350 (Miralax) 17 g packet, Take 17 (seventeen) g by mouth once daily, Disp: , Rfl: tamsulosin (Flomax) 0.4 MG capsule, Take 1 (one) capsule by mouth once daily At the same time everyday after a meal., Disp: 30 capsule, Rfl: 2 thiamine (Vitamin B-1) 100 MG tablet, Take 1 (one) tablet by mouth once daily, Disp: 30 tablet, Rfl: 2 vitamin D3 (Cholecalciferol) 25 MCG (1000 UNITS) tablet, Take 1 (one) tablet by mouth once daily, Disp: 30 tablet, Rfl: 2 Data: Labs: Recent Labs Component Name 03/09/22 0135 03/08/22 1455 03/05/22 1110 WBC 23.0* 20.8* 11.0* HGB 13.6 14.3 15.4 HCT 40.0 42.9 45.4 MCV 95.7 96.8 95.2 Recent Labs Component Name 03/09/22 04103/08/22 1455 03/05/22 1441 01/07/22 0733 01/06/22 0121 01/05/22 0110 NA 144 143 142 138 142 142 CL 100 102 107 104 105 105 CO2 25 29 19* 25 26 27 BUN 15 21 19 11 20 23 CREATININE 0.63* 0.87 1.01 0.65* 0.81 0.80 CALCIUM 9.3 9.5 10.0 9.1 8.7 8.9 MAGNESIUM - - - 1.8 1.9 1.8 PHOS - - - 2.8 2.8 3.0 Recent Labs Component Name 03/09/2241003/08/22 1455 03/05/22 1441 03/03/18 1745 01/30/18 1255 11/28/17 0455 10/14/17 1349 10/13/17 1526 PROT 6.7 7.3 7.8 - 6.9 - 7.0 8.4* ALB 2.4* 2.7* 3.3* - 3.7 - 3.9 4.8 TBILI 0.6 0.4 0.4 - 0.4 - 0.6 1.4* DBILI - - - - 0.2 - 0.2 0.4 AST 75* 74* 22 - 14 - 18 23 ALT 27 26 13 - 10 - 9 11 ALKPHOS 74 84 89 - 75 - 86 88 - = values in this interval not displayed. Recent Labs Component Name 03/05/22 1110 02/25/21 1134 07/18/19 1139 INR 1.0 1.1 1.0 No results for input(s): PHART, PO2ART, XQP6ESC, BEART in the last 30364 hours. I/O last 3 completed shifts: In: 50 [I.V.:50] Out: 700 [Urine:700] Imaging: XR FOOT LEFT 3VW OR MORE Result Date: 03/05/2022 IMPRESSION: No evidence of osteomyelitis or other acute osseous abnormality. > Interpreting Provider: Rachel Phillips MD on 03/05/2022 12:[address] CHEST ABDOMEN PELVIS W CONT [...] pelvis. > Dictated by Brandee Celestin MD (financial institution vice president). I, John Graham MD have personally reviewed and interpreted this examination/study. > Interpreting Provider: John Graham MD on 03/09/2022 9:27 AM Review of Systems: ROS not conducted due to patient diminished mental status. Physical Exam: BP 138/91 Pulse 103 Temp 98.4 ??F (36.9 ??C) Resp 19 Ht 6' (1.829 m) Wt 150 lb (68 kg) SpO2 100% Gen: This is a male laying In bed appears malnourished. HEENT: Head NC/AT. EOMI. Neck without deformity CV: Limbs WWP except left 2nd and 3rd toes which appear to have darker appearance and a 4-5cm patchof skin on the dorsum of his foot. Neither appear infected. He has BLE doppler signals audible @ PT/DP. Pulm: Non labored breathing on 3L NC. Abdomen: Soft, non distended. no tenderness to palpation. Not peritoneal. Lymph Nodes: No lymphadenopathy noted in the bilateral groins JAZMINE: deferred Extremities: No BLE edema MSK: No obvious trauma Skin: No rashes Assessment: This is a 62 year old male with what appears to be a developing dry ischemia of his left 2nd and 3rd toes and a small patch of skin on the dorsum of his foot. Plan/Recommondations: Recommend obtaining multilevel ABIs and an arterial duplex Recommend local wound care with betadine painting of toes and foot dorsum. Vascular surgery to continue following. Patient has been seen and discussed with my in night warehouse manager Dr. koenig and attending physicianDr. Membreno. Riky Williamson MD Resident Physician [facility] Department of Surgery 03/09/2022 2:24 PM Attending/Teaching Physician Documentation I have seen and examined the patient with the resident, independently reviewed lab and imaging results and I agree with the findings and plan of care as documented by the resident. Pt clearly not fitfor intervention at this time. Betadine to toes. Fup in clinic 1 week after dc and we can assess for what intervention is needed. Date of Service is date of resident signature in resident note documented in this encounter OR Notes * Operative - Anna Membreno MD - 03/15/2022 2:50 PM CDT Operative Report NAME: MOJGAN TABOR : 1960 AGE: 62 PROC DATE: 03/15/2022 SEX: M SURGEON: Anna Membreno MD PREOPERATIVE DIAGNOSIS: Ischemia, left lower extremity. POSTOPERATIVE DIAGNOSIS: Ischemia, left lower extremity. PROCEDURE: Left above-knee amputation. SURGEON: Anna Membreno M.D. PI/SENIOR RESEARCH ASSOCIATE: Brian Carmona M.D. and Riky Williamson M.D. INDICATIONS: Gentleman with extensive vascular disease, having undergone prior revascularization, noted at this time to have ischemic ulcers on the foot, developed bacteremia, and for this reason, itwas decided to proceed at amputation as he was not a candidate for any further attempts at this as he is nonambulatory. DESCRIPTION OF PROCEDURE: He was brought to the operating room. He was given general endotracheal anesthesia, prepped and draped in a sterile fashion. A standard incision above the knee was made witha slightly longer posterior flap, extended down through subcutaneous tissues and the muscle was divided. Artery and vein were ligated using 2-0 silk suture. Bone was divided with an oscillating saw. The wound was copiously irrigated. An anterior and posterior approximation was done with 2-0 Vicryl followed by horizontal Vicryl on the deep subcutaneous followed by wide skin genie. Sponge and needle count at the end of the procedure were correct. Estimated blood loss was minimal. IV fluids were not totaled. Urine output was none. 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 No gross evidence of infection at level of amputation, tissue well perfused. EBL: minimal blood loss Urine Output : Per anesthesia IV Fluid Intake: Per anesthesia Drains: * No LDAs found * Specimen(s): ID Type Source Tests Collected by Time Destination A : Amputation, Traumatic (Gross Only) Leg, Left PATHOLOGY TISSUE Anna Membreno MD 016 Implant(s): * No implants in log * Brian Carmona MD I was present for the entire procedure documented in this encounter ED Notes * Sharla Arzate RN - 03/09/2022 5:30 PM CDT Report called. * Sharla Arzate RN - 03/09/2022 4:40 PM CDT Pt condom cath changed, it had came off. Pt had urine on linen, which was changed and the patient cleaned. * Sharla Arzate RN - 03/09/2022 4:02 PM CDT Pt did not have any urine output prior to leaving to vascular lab. Admitting team has been advised that the patient has not had any output. Earlier in the day a request was made for IV fluids. Incorrect documentation . LR at 125ml/hr * Sharla Arzate RN - 03/09/2022 4:00 PM CDT Pt remains in vascular lab * Sharla Arzate RN - 03/09/2022 3:07 PM CDT Pt to vascular * Sharla Arzate RN - 03/09/2022 12:31 PM CDT Pt has been repositioned multiple times, pillow between knees and ankles. * Sharla Arzate RN - 03/09/2022 10:30 AM CDT Admitting physician notified of Gram+ with cocci culture results from yesterday * Sharla Arzate RN - 03/09/2022 10:17 AM CDT Admitting physician has been paged x2 * Sharla Arzate RN - 03/09/2022 9:19 AM CDT Upon assessment the pt has difficulty swallowing and it, in my opinion, is not a safe option for oral medication. Per the family he some sort of dysphagia secondary to a pocket . * Sharla Arzate RN - 03/09/2022 8:12 AM CDT Unable to document on computer in room for quick note. The patient has been resting, he does answerto his name, but otherwise is unclear of where he is or what is occurring. The POA calls which is his sister. She is updated appropriately. She states that for a week she has noted a significant change in his mental status. She states she contacted and spoke with the facility, but no action was taken and he steadily began to decompensate. Upon her arrival yesterday she called an ambulance to the assisted and he was transported here. She is very concerned about the fact that the nursing homemay call for information ans she does not want them to know any information. MRSA swab collected, condom cath placed. * Yari Marie RN - 03/09/2022 4:01 AM CDT Both of patient PIVs infiltrated. After numerous attempts with and without US, which were all unsuccessful d/t the patient being a difficult cannulation, an IV was placed in the right ankle. * Jean Razo RN - 03/09/2022 12:31 AM CDT Report given to sheldon Huggins * Elmo Ozuna MD - 03/08/2022 5:44 PM CDT ASSUMED CARE NOTE Patient signed out to me by Dr. Hernandez at 6:00 PM. Mojgan Tabor is a 62 year old male with a PMHx of Alzheimer's disease who is being evaluated for AMS. Pt reportedly presented with worsened mental status from baseline, along with tachycardia and fever. Pt labs reportedly demonstrate normal UA, elevated lactic acid, elevated troponin, and WBC over 20,000. At this time the patient's condition is Stable. Pending CT abdomen/pelvis Plan is likely admission. Vitals: 03/08/22 1900 03/08/22 2000 03/08/22 2100 03/08/22 2200 BP: (!) 173/119 (!) 176/106 (!) 179/108 (!) 167/120 Pulse: (!) 129 (!) 128 (!) 133 (!) 129 Resp: 17 20 24 17 Temp: SpO2: 100% 99% 100% 96% Weight: Height: 2315- After discussion with internal medicine, pt will be admitted to their service for further management of sepsis and left lobe pneumonia. 2315- After discussion with internal medicine, the patient will be admitted to their service for further management of care. Clinical Impression: 1. Sepsis without acute organ dysfunction, due to unspecified organism (CMS/HCC) 2. Fever, unspecified fever cause 3. Pneumonia of left lung due to infectious organism, unspecified part of lung 4. Lactic acidosis 5. Altered mental status, unspecified altered mental status type 6. Tachycardia Disposition: The patient was admitted stable condition By signing my name below, I, Odin Vicente, attest that this documentation has been prepared under the direction and in the presence of Dr. Ozuna. Signed: Laisha Thomas. I, Dr. Ozuna, personally performed the services described in this documentation. All medical record entries made by the scribe were at my direction and in my presence. I have reviewed the chart and agree that the record reflects my personal performance and is accurate and complete. Electronically signed: Dr. Ozuna Date: 03/10/22 Time: 1:50 AM * Jack Trent, DO - 03/08/2022 2:59 PM CDT CC AMS HISTORY 62 year old year old male with hx as below including Alcohol use disorder, alzheimer's, presents toED from [facility] after family visited today and found the patient to not be acting like his normal self. Pt is A&Ox2 at baseline, and is A&O to self only at this time. HPI is limited due to patients AMS. Upon arrival, patient was found to be hypoxic to 88% on RA, tachycardic in the 120s, and febrile to 101.3. Patient placed on 2L NC. Patient mumbles incomprehensible words. Past Medical History: Diagnosis Date ??? CVA (cerebral vascular accident) (CMS/HCC) ??? HTN (hypertension) ??? Seizure (CMS/HCC) Past Surgical History: Procedure Laterality Date ??? Leg Amputation, Below Knee Left 03/15/2022 Left; LEFT BKA POSS AKA No family history on file. Social History Socioeconomic History ??? Marital status: Single Spouse name: Not on file ??? Number of children: Not on file ??? Years of education: Not on file ??? Highest education level: Not on file Occupational History ??? Not on file Tobacco Use ??? Smoking status: Former Smoker Packs/day: 1.00 Years: 15.00 Pack years: 15.00 ??? Smokeless tobacco: Never Used Vaping Use ??? Vaping Use: Never used [...] Unable to perform ROS: Mental status change PHYSICAL EXAM BP 145/81 Pulse 106 Temp 98.6 ??F (37 ??C) (Axillary) Resp 20 Ht 1.829 m (6') Wt 68 kg (150 lb) SpO2 99% Physical Exam Constitutional: General: He is not in acute distress. Comments: Chronically ill appearing, temporal wasting noted HENT: Head: Normocephalic and atraumatic. Right Ear: Tympanic membrane normal. Left Ear: Tympanic membrane normal. Nose: Nose normal. No rhinorrhea. Mouth/Throat: Pharynx: Oropharynx is clear. No posterior oropharyngeal erythema. Comments: Dry MM Eyes: General: No scleral icterus. Extraocular Movements: Extraocular movements intact. Conjunctiva/sclera: Conjunctivae [...] is no abdominal tenderness. Musculoskeletal: General: No swelling. Normal range of motion. Cervical back: Normal range of motion and neck supple. No tenderness. Left lower leg: No edema. Comments: Left distal cell tender to palpation Lymphadenopathy: Cervical: No cervical adenopathy. Skin: General: Skin is warm and dry. Capillary Refill: Capillary refill takes less than 2 seconds. Coloration: Skin is not jaundiced. Findings: No bruising. Comments: Dorsal aspect of the left foot noted to have very dry and thickened skin, chronic wound with no active purulence or surrounding erythema noted to the medial aspect of the left first toe Neurological: General: No focal deficit present. Mental Status: He is disoriented and confused. Cranial Nerves: No cranial nerve deficit. Sensory: No sensory deficit. Motor: No weakness. Psychiatric: Thought Content: Thought content normal. Judgment: Judgment normal. Comments: Unable to assess due to AMS MEDICAL DECISION MAKING Problem List: AMS DDx: UTI, PNA, osteomyelitis, metabolic abnormality, seizure, other Plan: Initiate sepsis protocol, labs, blood cx, CXR, left foot xray, EKG, VPA and keppra levels RESULTS Labs Reviewed CULTURE BLOOD - Abnormal; Notable for the following components: Result Value Culture Growth of Staphylococcus aureus (*) Gram Stain Gram-positive cocci in clusters (*) All other components within normal limits Narrative: Positive at 14 hr Infectious disease consultation strongly recommended, where available. Refer to previously reported susceptibility testing, specimen number: [id number] MRSA DNA PCR - Abnormal; Notable for the following components: MRSA DNA by PCR Detected (*) All other components within normal limits Narrative: 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 CULTURE BLOOD - Abnormal; Notable for the following components: Culture Growth of Staphylococcus aureus (*) Gram Stain Gram-positive cocci in clusters (*) All other components within normal limits Narrative: Positive at 18.25hrs. Infectious disease consultation strongly recommended, where available. LACTIC ACID BLOOD REFLEX TO REPEAT - Abnormal; Notable for the following components: Lactic Acid-Stat 2.8 (*) All other components within normal limits TROPONIN I - Abnormal; Notable for the following components: Troponin I 0.032 (*) All other components within normal limits URINALYSIS REFLEX TO MICROSCOPIC NO CULTURE - Abnormal; Notable for the following components: Protein UA 1+ (*) Glucose UA 1+ (*) Ketone UA Trace (*) Urobilinogen UA 4.0 (*) All other components within normal limits Narrative: CBC W AUTO DIFFERENTIAL - Abnormal; Notable for the following components: WBC 20.8 (*) All other components within normal limits COMPREHENSIVE METABOLIC PANEL - Abnormal; Notable for the following components: Albumin 2.7 (*) AST 74 (*) BUN/Creatinine Ratio 24 (*) Albumin/Globulin Ratio 0.6 (*) All other components within normal limits LEVETIRACETAM LEVEL - Abnormal; Notable for the following components: Levetiracetam 59 (*) All other components within normal limits DIFFERENTIAL MANUAL - Abnormal; Notable for the following components: Neutrophils Absolute Manual 15.60 (*) Monocytes Absolute Manual 2.70 (*) Neutrophil % Manual 75 (*) Lymphocyte % Manual 12 (*) Large Platelet Count Occasional (*) All other components within normal limits LACTIC ACID BLOOD REFLEX TO REPEAT - Abnormal; Notable for the following components: Lactic Acid-Stat 3.3 (*) All other components within normal limits LACTIC ACID BLOOD REFLEX TO REPEAT - Abnormal; Notable for the following components: Lactic Acid-Stat 2.2 (*) All other components within normal limits LACTIC ACID BLOOD - Abnormal; Notable for the following components: Lactic Acid-Stat 3.0 (*) All other components within normal limits COMPREHENSIVE METABOLIC PANEL - Abnormal; Notable for the following components: Creatinine 0.63 (*) Glucose 134 (*) Albumin 2.4 (*) AST 75 (*) Anion Gap 23 (*) BUN/Creatinine Ratio 24 (*) Osmolality Calculated 301 (*) Albumin/Globulin Ratio 0.6 (*) All other components within normal limits CBC W AUTO DIFFERENTIAL - Abnormal; Notable for the following components: WBC 23.0 (*) RBC 4.18 (*) All other components within normal limits PROCALCITONIN LEVEL - Abnormal; Notable for the following components: PROCALCITONIN 1.00 (*) All other components within normal limits Narrative: The change in procalcitonin (PCT) concentration [...] Change in Procalcitonin Calculator is available at [email or web address] If clinical picture has not improved and PCT remains high, reevaluate and consider treatment failure or other causes. DIFFERENTIAL MANUAL - Abnormal; Notable for the following components: Neutrophils Absolute Manual 16.79 (*) Monocytes Absolute Manual 4.14 (*) Lymphocyte % Manual 9 (*) Monocytes % Manual 18 (*) [place] Cells 1+ (*) All other components within normal limits LACOSAMIDE - Abnormal; Notable for the following components: Lacosamide 16.1 (*) All other components within normal limits RENAL FUNCTION PANEL - Abnormal; Notable for the following components: Creatinine 0.53 (*) Albumin 2.1 (*) Phosphorus 2.0 (*) BUN/Creatinine Ratio 26 (*) All other components within normal limits CBC W/O DIFFERENTIAL - Abnormal; Notable for the following components: WBC 15.4 (*) RBC 3.76 (*) Hemoglobin 11.9 (*) nRBC Absolute 0.02 (*) nRBC Auto 0.1 (*) All other components within normal limits VANCOMYCIN LEVEL TROUGH - Abnormal; Notable for the following components: Vancomycin Trough 7.7 (*) All other components within normal limits Narrative: See institution protocol. URINALYSIS REFLEX TO MICROSCOPIC NO CULTURE - Abnormal; Notable for the following components: Bacteria UA Trace (*) All other components within normal limits Narrative: CBC W AUTO DIFFERENTIAL - Abnormal; Notable for the following components: WBC 11.7 (*) RBC 3.47 (*) Hemoglobin 11.1 (*) Hematocrit 32.5 (*) Neutrophils % 72.2 (*) Lymphocytes % 13.8 (*) Neutrophils Absolute 8.44 (*) Monocytes Absolute 1.42 (*) All other components within normal limits COMPREHENSIVE METABOLIC PANEL - Abnormal; Notable for the following components: Creatinine 0.50 (*) Potassium 3.2 (*) CO2 30 (*) Protein Total 5.9 (*) Albumin 1.9 (*) AST 60 (*) Albumin/Globulin Ratio 0.5 (*) All other components within normal limits PT-INR SLH - Abnormal; Notable for the following components: PT 15.4 (*) All other components within normal limits BLOOD GASES ART + COOX PANEL - Abnormal; Notable for the following components: pH Arterial 7.47 (*) BE Arterial 5.6 (*) Hemoglobin by COOX 11.7 (*) All other components within normal limits Narrative: Carboxyhemoglobin Normal Concentration: Non-smokers: 0-2%; Smokers: 0-9%; Toxic: >20% PHOSPHORUS BLOOD - Abnormal; Notable for the following components: Phosphorus 2.7 (*) All other components within normal limits RENAL FUNCTION PANEL - Abnormal; Notable for the following components: Creatinine 0.55 (*) Potassium 3.3 (*) Albumin 1.9 (*) All other components within normal limits CBC W AUTO DIFFERENTIAL - Abnormal; Notable for the following components: WBC 12.4 (*) RBC 3.55 (*) Hemoglobin 11.3 (*) Hematocrit 33.4 (*) Neutrophils % 72.5 (*) Lymphocytes % 14.2 (*) Neutrophils Absolute 8.98 (*) Monocytes Absolute 1.36 (*) All other components within normal limits CBC W AUTO DIFFERENTIAL - Abnormal; Notable for the following components: WBC 10.7 (*) RBC 3.84 (*) Monocytes % 13.4 (*) Monocytes Absolute 1.43 (*) All other components within normal limits RENAL FUNCTION PANEL - Abnormal; Notable for the following components: Creatinine 0.61 (*) Chloride 108 (*) Albumin 2.0 (*) All other components within normal limits CBC W AUTO DIFFERENTIAL - Abnormal; Notable for the following components: RBC 3.23 (*) Hemoglobin 10.4 (*) Hematocrit 30.5 (*) Monocytes % 15.7 (*) Monocytes Absolute 1.45 (*) All other components within normal limits COMPREHENSIVE METABOLIC PANEL - Abnormal; Notable for the following components: Creatinine 0.49 (*) Protein Total 5.8 (*) Albumin 1.7 (*) AST 35 (*) Albumin/Globulin Ratio 0.4 (*) All other components within normal limits PHOSPHORUS BLOOD - Abnormal; Notable for the following components: Phosphorus 2.3 (*) All other components within normal limits CBC W AUTO DIFFERENTIAL - Abnormal; Notable for the following components: RBC 3.54 (*) Hemoglobin 11.4 (*) Hematocrit 33.4 (*) Monocytes % 16.3 (*) Monocytes Absolute 1.65 (*) All other components within normal limits RENAL FUNCTION PANEL - Abnormal; Notable for the following components: Creatinine 0.52 (*) Albumin 1.8 (*) Phosphorus 2.3 (*) All other components within normal limits CBC W AUTO DIFFERENTIAL - Abnormal; Notable for the following components: RBC 3.15 (*) Hemoglobin 10.0 (*) Hematocrit 31.0 (*) MCV 98.4 (*) Lymphocytes % 18.7 (*) Immature Granulocytes % 1.2 (*) All other components within normal limits RENAL FUNCTION PANEL - Abnormal; Notable for the following components: Creatinine 0.69 (*) Albumin 1.6 (*) All other components within normal limits GLUCOSE - POINT OF CARE - Abnormal; Notable for the following components: Glucose WB/POC 148 (*) All other components within normal limits GLUCOSE - POINT OF CARE - Abnormal; Notable for the following components: Glucose WB/POC 119 (*) All other components within normal limits GLUCOSE - POINT OF CARE - Abnormal; Notable for the following components: Glucose WB/POC 134 (*) All other components within normal limits CULTURE BLOOD - Normal CULTURE URINE - Normal SARS-COV-2 (COVID-19)+INFLU A+B PCR RAPID - Normal [...] acid amplification assay performance was validated by [facility]. This test has been authorized [...] assay are available upon request. CULTURE BLOOD - Normal CULTURE BLOOD - Normal CULTURE BLOOD - Normal CULTURE BLOOD - Normal CULTURE BLOOD - Normal VALPROIC ACID LEVEL - Normal TROPONIN I - Normal TROPONIN I - Normal MAGNESIUM BLOOD - Normal LACTIC ACID BLOOD - Normal MAGNESIUM BLOOD - Normal VANCOMYCIN LEVEL TROUGH - Normal Narrative: See institution protocol. VALPROIC ACID LEVEL - Normal MAGNESIUM BLOOD - Normal MAGNESIUM BLOOD - Normal VANCOMYCIN LEVEL TROUGH - Normal Narrative: See institution protocol. MAGNESIUM BLOOD - Normal MAGNESIUM BLOOD - Normal VANCOMYCIN LEVEL TROUGH - Normal Narrative: See institution protocol. MAGNESIUM BLOOD - Normal CLOBAZAM QUANT BLOOD LACOSAMIDE CBC W/O DIFFERENTIAL COMPREHENSIVE METABOLIC PANEL TYPE + SCREEN PANEL PATHOLOGY TISSUE GLUCOSE - POINT OF CARE GLUCOSE - POINT OF CARE MRI FOOT LEFT WWO CONTRAST Final Result PROCEDURE: MRI FOOT LEFT WWO CONTRAST, DATE/TIME OF EXAM: 03/15/2022 12:57 AM, LOCATION [facility] INDICATION: R78.81: Bacteremia I73.9: PAD (peripheral artery disease) (CMS/HCC) ADDITIONAL CLINICAL INFORMATION: Ordering Provider Reason [...] but there is no abnormal osseous enhancement. IMPRESSION: 1. No abnormal marrow signal in the left foot to indicate acute osteomyelitis. 2. No loculated fluid collection in the left foot. > Interpreting Provider: John Graham MD on 03/15/2022 8:[address] HEAD WO CONTRAST Final Result PROCEDURE: CT HEAD WO CONTRAST, DATE/TIME OF EXAM: 03/11/2022 11:15 AM, LOCATION [facility] INDICATION: R78.81: Bacteremia ADDITIONAL CLINICAL INFORMATION: Ordering Provider Reason For Exam: change in mentation COMPARISON: CT head from 03/10/2022 was reviewed. EXAMINATION: CT scan of the head without intravenous contrast TECHNIQUE: CT of the head was performed without intravenous contrast according to standard protocol. CT dose reduction technique was used, including Automated Exposure Control. 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 Moderate chronic microvascular ischemic changes are seen. There is moderate generalized parenchymal volume loss. There is no CT evidence of acute infarct. There is no acute hemorrhage. There is no hydrocephalus, midline shift or extra-axial fluid collection. 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 The orbits are unremarkable. No significant calvarial or soft tissue abnormality is noted. IMPRESSION: 1.No acute intracranial abnormality. 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 > Interpreting Provider: Latrice Ortiz MD on 03/11/2022 11:[address] HEAD WO CONTRAST Final Result PROCEDURE: CT HEAD WO CONTRAST, DATE/TIME OF EXAM: 03/10/2022 4:04 PM, LOCATION [facility] INDICATION: G93.40: Acute encephalopathy EXAMINATION: Computed tomography (CT) of the head without contrast ADDITIONAL CLINICAL INFORMATION: Ordering Provider Reason For Exam: AMS with hx of seizures Technologist Note: None. Additional: None. CONTRAST: None. TECHNIQUE: CT of the head was performed without contrast according to standard protocol. CT dose reduction technique was used, including Automated Exposure Control. COMPARISON: CT of the head and CT angiogram of the head and neck from 12/29/2021. FINDINGS: No acute intra- or extra-axial fluid collections are identified. There is mild cerebral and cerebellar volume loss with associated ex vacuo ventricular dilatation. The basilar cisterns are patent. No mass effect or midline shift is seen. Chronic encephalomalacia in the right occipital lobe. Chronic lacunar infarcts in the bilateral basal ganglia and the bilateral thalami, left more than right. The garber-white matter differentiation otherwise appears normal. Periventricular white matter hypoattenuation is indicative of chronic small vessel ischemic disease. There is vascular calcification of the carotid siphons. No acute calvarial fracture is identified. Other than an old left lamina papyracea fracture, the orbits appear normal. There is redemonstration of near complete opacification of the right maxillary sinus with hyperdense material concerning for chronic or fungal disease. Frothy secretions in the right ethmoid air cells. Mild mucosal thickening in the remaining paranasal sinuses. Hypertrophy of the left inferior turbinate. Prominence along the base of the right inferior turbinate. The mastoid air cells are grossly clear. Small amount of cerumen in the right external canal. No soft tissue abnormality is identified. IMPRESSION: 1.No acute intracranial hemorrhage, midline shift, or significant mass effect. > Interpreting Provider: Wojciech Neil MD on 03/10/2022 6:09 PM VAS LEFT ARTERIAL DUPLEX LE Final Result VAS ARTERIAL ANKLE ARM INDEX Final Result CT CHEST ABDOMEN PELVIS W CONT Final Result PROCEDURE: CT CHEST ABDOMEN PELVIS W CONT, DATE/TIME OF EXAM: 03/08/2022 10:05 PM, LOCATION [facility] INDICATION: R50.9: Fever, unspecified fever cause ADDITIONAL CLINICAL INFORMATION: Ordering Provider Reason For Exam: febrile, tachy, source of infection? Belly tenderness COMPARISON: CT angiography abdomen with runoff dated 07/02/2021. TECHNIQUE: CT of the chest, abdomen, and pelvis was performed after the uneventful administration of 100 mL of Isovue 370 intravenous contrast according to standard protocol. Findings: Chest: Lower Neck and Axillae: Normal. Lungs: Mild dependent left basilar consolidation with mild tree-in-bud opacities. Mild posterior right upper lung tree-in-bud opacities. Mild right basilar atelectasis. There is a 3 mm anterior right upper lobe nodule (series 5, image 29). There is a 1.5 x 1.8 cm spiculated nodule in the left upper lobe (series 5, image 49). There is a 4 mm left upper lobe subpleural nodule (series 5, image 37). There is a 1.0 x 0.7 cm left apical nodule (series 5, image 16). No pleural fluid or pneumothorax is present. Heart and Pericardium: The cardiac chambers are normal in size. No pericardial fluid or thickening is present. Mediastinum and [place]: No mediastinal hemorrhage is present. No enlarged lymph nodes are present. Thoracic Vasculature: There is atherosclerotic calcification of the coronary arteries and aorta. Incidental note of a azygous vein. Abdomen/pelvis: Motion artifact. Liver: There is a 1.3 x 1.0 cm arterially hyperattenuating observation in hepatic segment 8 (series 4, image 97), likely representing a flash filling hemangioma. Gallbladder and Bile Ducts: Normal. Spleen: Normal. Pancreas: Normal. Adrenals: Normal. Kidneys: Normal. No renal calculi or hydronephrosis. Gastrointestinal: The stomach and visualized loops of large and small bowel are unremarkable. Normal appendix. Mesentery/Peritoneum/Retroperitoneum: No free intraperitoneal air. No free fluid in the abdomen or pelvis. Pelvis: The bladder is normal. The prostate is enlarged measuring up to 4.4 cm. No pelvic free fluid or enlarged adenopathy. Abdominal Vasculature: Atherosclerotic calcification of the aorta and its branch vessels. Bones: Bone windows demonstrate no suspicious lytic or blastic lesions. The visible osseous structures are intact. Degenerative changes are seen in the spine. There is a chronic deformity of the sternum. Soft tissues: Normal. Impression: 1.Dependent left basilar consolidation with mild tree-in-bud opacities. Mild posterior right upper lobe tree-in-bud opacities. This concerning for aspiration pneumonia. 2.Multiple bilateral pulmonary nodules as detailed above including a 1.8 cm spiculated nodule. This may represent a multifocal infection although adenocarcinoma can have a similar appearance. 3 months follow-up is recommended. 3.No acute abnormality in the abdomen or pelvis. > Dictated by Brandee Celestin MD (financial institution vice president). John Thomason MD have personally reviewed and interpreted this examination/study. > Interpreting Provider: John Graham MD on 03/09/2022 9:27 AM XR FOOT LEFT 3VW OR MORE Final Result PROCEDURE: XR FOOT LEFT 3VW OR MORE, DATE/TIME OF EXAM: 03/08/2022 3:38 PM, LOCATION [facility] INDICATION: R50.9: Fever, unspecified fever cause ADDITIONAL [...] noted. Report dictated by Param Eubanks MD (financial institution vice president). Eron Thomason have personally reviewed and interpreted this examination/study. > Interpreting Provider: Eron Payton on 03/08/2022 4:48 PM XR CHEST 1VW PORTABLE Final Result PROCEDURE: XR CHEST 1VW PORTABLE, DATE/TIME OF EXAM: 03/08/2022 3:14 PM, LOCATION [facility] INDICATION: R50.9: Fever, unspecified fever cause ADDITIONAL CLINICAL INFORMATION: Ordering Provider Reason For Exam: infection? SOB COMPARISON: 05/01/2021 FINDINGS/IMPRESSION: Mild left basilar atelectasis or airspace disease. A small left pleural effusion cannot be excluded. No pneumothorax. Heart size and mediastinal contours are normal. No acute osseous abnormality. Report dictated by Param Eubanks MD (financial institution vice president). Eron Thomason have personally reviewed and interpreted this examination/study. > Interpreting Provider: Eron Payton on 03/08/2022 4:44 PM INTERVENTIONS: Medications 0.9% NaCl injection 3 mL (3 mL Intracatheter $ Given 03/17/22 2950) And 0.9% NaCl injection 1-10 mL (10 mL Intracatheter $ Given 03/16/22 0000) cefTRIAXone (Rocephin) 2,000 mg in 0.9% NaCl IV 50 mL IVPB (0 mg Intravenous Stopped 03/16/22 1245) iopamidol (Isovue 370) 76 % contrast (100 mL Intravenous $ Given - Contrast 03/08/22 215) amLODIPine (Norvasc) tablet 5 mg (5 mg Oral $ Given 03/16/222099) aspirin chew tablet 81 mg (81 mg Oral Not Administered 03/16/22956) atorvastatin (Lipitor) tablet 40 mg (40 mg Oral Not Administered 03/16/22956) cloBAZam (Onfi) tablet 10 mg (10 mg Oral $ Given 03/16/222099) folic acid (Folvite) tablet 1 mg (1 mg Oral Not Administered 03/16/22955) tamsulosin (Flomax) capsule 0.4 mg (0.4 mg Oral Not Administered 03/16/22955) thiamine (Vitamin B-1) tablet 100 mg (100 mg Oral Not Administered 03/16/22958) levETIRAcetam (Keppra) tablet 2,000 mg (2,000 mg Oral $ Given 03/16/222099) lacosamide (Vimpat) tablet 200 mg (200 mg Oral $ Given 03/16/222099) polyethylene glycol 3350 (Miralax) packet 17 g (has no administration in time range) artificial tears ophthalmic solution 1 drop (has no administration in time range) divalproex DR (Depakote) tablet 1,000 mg (1,000 mg Oral Not Administered 03/16/22956) perflutren lipid microsphere (Definity) injection 0.5 mL (has no administration in time range) metroNIDAZOLE (Flagyl) tablet 500 mg (500 mg Oral $ Given 03/17/22 0550) gadobutrol (Gadavist) injection (6 mL Intravenous $ Given - Contrast 03/15/22 0057) heparin injection 5,000 Units (5,000 Units Subcutaneous $ Given 03/16/222099) acetaminophen (Tylenol) tablet 1,000 mg (1,000 mg Oral $ Given 03/16/222099) polyethylene glycol 3350 (Miralax) packet 17 g (17 g Oral Not Administered 03/16/22958) LORazepam (Ativan) injection 1 mg (has no administration in time range) oxyCODONE (Roxicodone) oral solution 2.5 mg (has no administration in time range) Or oxyCODONE (Roxicodone) oral solution 5 mg (has no administration in time range) divalproex sprinkle (Depakote Sprinkle) capsule 750 mg (750 mg Oral $ Given 03/16/22 190) And divalproex sprinkle (Depakote Sprinkle) capsule 500 mg (has no administration in time range) lactated ringers IV bolus (0 mL/kg ?? 68 kg Intravenous Stopped 03/08/22 191) cefTRIAXone (Rocephin) 2,000 mg in 0.9% NaCl IV 50 mL IVPB (0 mg Intravenous Stopped 03/08/22 1513) acetaminophen (Tylenol) suppository 650 mg (650 mg Rectal $ Given 03/08/22 2359) vancomycin (Vancocin) 1,750 mg in 500 mL NaCl IVPB (0 mg Intravenous Stopped 03/09/22 0437) magnesium sulfate 2 g in 50 mL bolus (0 g Intravenous Stopped 03/10/22 1851) sodium - potassium phosphates (K Phos Neutral) tablet 2 tablet (2 tablets Oral $ Given 03/10/22 1522) potassium chloride 40 mEq in 270 mL bolus (0 mEq Intravenous Stopped 03/11/22 1649) potassium chloride ER (Klor-Con M) tablet 40 mEq (40 mEq Oral $ Given 03/12/22 1015) LORazepam (Ativan) tablet 1 mg (1 mg Oral $ Given 03/14/22 2337) magnesium sulfate 2 g in 50 mL bolus (0 g Intravenous Stopped 03/14/22 0959) sodium - potassium phosphates (K Phos Neutral) tablet 2 tablet (2 tablets Oral $ Given 03/14/22 0757) Procedures ED COURSE Patient seen and evaluated, available studies reviewed ED Course as of 03/17/22 0751 TueMar 08, 2022 1506 Rocephin given as well as sepsis fluids at this time [DB] 1515 EKG completed at 2:05 p.m.. Sinus tachycardia with a rate of 123. Will normal ME and QT intervals. No evidence of ST segment elevation [DB] 1527 WBC(!): 20.8 [DB] 1634 Lactic Acid-Stat(!): 2.8 [DB] 1635 Xray of left foot unremarkable for any osseous findings [DB] 1755 UA reveals no evidence of infection [DB] 1805 CXR reveals small pleural effusion on the right [DB] 1806 Repeat lactic elevated to 3.3, fluids running, no clear source of infection identified so far.Will further evaluate with CT CAP [DB] ED Course User Index [DB] Jack Trent DO Clinical Impressions as of 03/17/22 0751 Fever, unspecified fever cause Sepsis without acute organ dysfunction, due to unspecified organism (CMS/HCC) Pneumonia of left lung due to infectious organism, unspecified part of lung Lactic acidosis Altered mental status, unspecified altered mental status type Tachycardia MEDICAL DECISION MAKING In short, this is a 62 year old patient [place] for [place]. Patient was febrile and tachycardic and hypoxic. High index of suspicion for sepsis. CXR with small left pleural effusion. UA unremarkable. CT CAP reveals possible multifocal infection. Patient admitted for further care at this time. DISPOSITION After discussion with Internal Medicine patient will be admitted to their service for further management of care. I have reviewed the diagnostic findings with the patient and they have had an opportunity to ask me any questions they have about care, diagnosis, and reason for admission. The patient states understanding and agrees to admission. ED FINAL DIAGNOSIS 1. Sepsis without acute organ dysfunction, due to unspecified organism (CMS/HCC) 2. Fever, unspecified fever cause 3. Pneumonia of left lung due to infectious organism, unspecified part of lung 4. Lactic acidosis 5. Altered mental status, unspecified altered mental status type 6. Tachycardia 7. Acute encephalopathy 8. Bacteremia 9. 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 Family came to visit and noticed the patient was not as alert. Patient is normally A&Ox2 at baseline. HPI is limited due to mental status change. History provided by EMS. Past Medical History: Diagnosis Date ??? CVA (cerebral vascular accident) (CMS/HCC) ??? HTN (hypertension) ??? Seizure (CMS/HCC) No past surgical history on file. Social History Socioeconomic History ??? Marital status: Single Spouse name: Not on file ??? Number of children: Not on file ??? Years of education: Not on file ??? Highest education level: Not on file Occupational History ??? Not on file Tobacco Use ??? Smoking status: Former Smoker Packs/day: 1.00 Years: 15.00 Pack years: 15.00 ??? Smokeless tobacco: Never Used Vaping Use ??? Vaping Use: Never used [...] Stability: Not on file Review of Systems: unobtainable d/t mental status change Vitals: 03/08/22 1528 03/08/22 1600 03/08/22 1602 03/08/22 1700 BP: (!) 181/94 (!) 153/103 (!) 153/103 (!) 174/103 Pulse: (!) 123 (!) 124 (!) 125 (!) 121 Resp: 12 20 21 20 Temp: SpO2: 99% 98% 96% 99% Weight: Height: Exam: Constitutional: , thin, chronically ill appearing with temporal wasting HENT: normocephalic, atraumatic, dry oral mucosa, conjunctiva normal, poor dentition Eyes: PERRL, EOMi Neck: supple, normal ROM Cardiovascular: Tachycardic rate and regular rhythm, 2+ radial pulses bilaterally and left DP. Right DP pulse detected with Doppler. Respiratory: clear to auscultation bilaterally, no wheezes, no respiratory distress Abdomen: soft, mildly tender to suprapubic region, non-distended Genitourinary: deferred Musculoskeletal: tenderness to left distal midfoot, says yes when you touch his body. Skin: skin hot to touch, dry, chronic skin changes to left dorsal foot. Small ulcer to distal left foot along the medial aspect of the 1st MTP. No surrounding cellulitis, no active drainage, or odor.Few toes appear more dark on the left foot. Left foot is cooler when compared to the right. Neurological: awake, alert&Ox1 (self only), mumbling speech that is incomprehensible, Psychiatric: unable to assess Medical Decision Makin. Fever Differential diagnosis considered: UTI vs seizure vs pneumonia vs osteomyelitis vs metabolic abnormality vs other Plan: sepsis workup with labs, EKG, imaging, IV fluids, broad spectrum antibiotics. Tylenol, reassess, anticipate admission Results: Labs Reviewed LACTIC ACID BLOOD REFLEX TO REPEAT - Abnormal; Notable for the following components: Result Value Lactic Acid-Stat 2.8 (*) All other components within normal limits TROPONIN I - Abnormal; Notable for the following components: Troponin I 0.032 (*) All other components within normal limits URINALYSIS REFLEX TO MICROSCOPIC NO CULTURE - Abnormal; Notable for the following components: Protein UA 1+ (*) Glucose UA 1+ (*) Ketone UA Trace (*) Urobilinogen UA 4.0 (*) All other components within normal limits Narrative: CBC W AUTO DIFFERENTIAL - Abnormal; Notable for the following components: WBC 20.8 (*) All other components within normal limits COMPREHENSIVE METABOLIC PANEL - Abnormal; Notable for the following components: Albumin 2.7 (*) AST 74 (*) BUN/Creatinine Ratio 24 (*) Albumin/Globulin Ratio 0.6 (*) All other components within normal limits DIFFERENTIAL MANUAL - Abnormal; Notable for the following components: Neutrophils Absolute Manual 15.60 (*) Monocytes Absolute Manual 2.70 (*) Neutrophil % Manual 75 (*) Lymphocyte % Manual 12 (*) Large Platelet Count Occasional (*) All other components within normal limits GLUCOSE - POINT OF CARE - Abnormal; Notable for the following components: Glucose WB/POC 148 (*) All other components within normal limits VALPROIC ACID LEVEL - Normal CULTURE BLOOD CULTURE BLOOD CULTURE URINE SARS-COV-2 (COVID-19)+INFLU A+B PCR RAPID LEVETIRACETAM LEVEL TROPONIN I LACTIC ACID BLOOD REFLEX TO REPEAT XR FOOT LEFT 3VW OR MORE Final Result PROCEDURE: XR FOOT LEFT 3VW OR MORE, DATE/TIME OF EXAM: 03/08/2022 3:38 PM, LOCATION [facility] INDICATION: R50.9: Fever, unspecified fever cause ADDITIONAL [...] noted. Report dictated by Param Eubanks MD (financial institution vice president). Eron Thomason have personally reviewed and interpreted this examination/study. > Interpreting Provider: Eron Payton on 03/08/2022 4:48 PM XR CHEST 1VW PORTABLE Final Result PROCEDURE: XR CHEST 1VW PORTABLE, DATE/TIME OF EXAM: 03/08/2022 3:14 PM, LOCATION [facility] INDICATION: R50.9: Fever, unspecified fever cause ADDITIONAL CLINICAL INFORMATION: Ordering Provider Reason For Exam: infection? SOB COMPARISON: 05/01/2021 FINDINGS/IMPRESSION: Mild left basilar atelectasis or airspace disease. A small left pleural effusion cannot be excluded. No pneumothorax. Heart size and mediastinal contours are normal. No acute osseous abnormality. Report dictated by Param Eubanks MD (financial institution vice president). Eron Thomason have personally reviewed and interpreted this examination/study. > Interpreting Provider: Eron Payton on 03/08/2022 4:[address] CHEST ABDOMEN PELVIS W CONT (Results Pending) EKG Interpretation: Interpreted by me: Date: 03/08/2022 Time: 2:05 PM R&R: Sinus tachycardia with a ventricular rate of 123 bpm Additional findings: Normal axis. Poor R wave progression anteriorly. No ST elevation or depression. Compared to previous EKG tracing on 12/30/2021, unchanged except rate is lower and anterior Q waves lower. ED course: The patient's Oxygen Saturation Monitor was interpreted by me. The reading was 99%. The patient wason 2L NC at the time of the reading. This is interpreted as adequate with supplementation. 2:26 PM - Patient febrile to 101.5 ??F, tachycardic, and hypoxic. High suspicion for SEPSIS, will initiate protocol. Will order broad spectrum antibiotics for presumed urosepsis. 2:38 PM POC glucose 148. 3:28 PM WBC 20.8. 4:52 PM CXR reads mild left basilar atelectasis or airspace disease. A small left pleural effusion cannot be excluded. No pneumothorax. Heart size and mediastinal contours are normal. No acute osseous abnormality. XR left foot reads NAOI. Lactic is 2.2, will continue to trend. Troponin elevated to 0.032, will continue to trend. H&H is stable. Creatinine at baseline. No marked electrolyte abnormalities. Awaiting UA. 5:26 PM - I have reassessed the patient's hemodynamic status. 5:55 PM UA not consistent with infection. Will order a COVID swab and CT chest A/P 6:00 PM Patient signed out to Dr. Ozuna. At this time the patient's condition is stable. Disposition pending CT. Consult No Procedure done at this time No Ultrasound done at this time No CRITICAL CARE IN THE ED Yes Pt. is at high risk for complications and morbidity or mortality Pt. is critically ill with vital organ impairment or failure There is high probability of imminent or life threatening deterioration in the patient condition Patient is unable or incompetent to participate in giving a history and/or making decisions and discussion is necessary for determining treatment decisions. Time involved in the performance of separately billable procedures, teaching, reviewing education material was not counted towards critical care time. Time with beside care: 25 minutes Time in discussion with family: 0 minutes Time reviewing old medical records: 5 minutes Time reviewing labs/radiographs: 10 minutes Time with Fitness Manager services: 0 minutes I was directly involved in the patients care for a Total Critical Care Time of: 40 minutes Orders and Medicine administered during this encounter: Orders Placed This Encounter ??? CULTURE BLOOD ??? CULTURE URINE ??? SARS-COV-2 (COVID-19)+INFLU A+B PCR RAPID ??? XR CHEST 1VW PORTABLE ??? XR FOOT LEFT 3VW OR MORE ??? CT CHEST ABDOMEN PELVIS W CONT ??? LACTIC ACID BLOOD REFLEX TO REPEAT ??? TROPONIN I ??? TROPONIN I ??? URINALYSIS REFLEX TO MICROSCOPIC NO CULTURE ??? CBC W AUTO DIFFERENTIAL ??? COMPREHENSIVE METABOLIC PANEL ??? LEVETIRACETAM LEVEL ??? VALPROIC ACID LEVEL ??? DIFFERENTIAL MANUAL ??? LACTIC ACID BLOOD REFLEX TO REPEAT ??? EKG 12-LEAD ??? AND Linked Order Group ??? 0.9% NaCl injection 3 mL ??? 0.9% NaCl injection 1-10 mL ??? FOLLOWED BY Linked Order Group ??? lactated ringers IV bolus ??? lactated ringers infusion ??? cefTRIAXone (Rocephin) 2,000 mg in 0.9% NaCl IV 50 mL IVPB ??? cefTRIAXone (Rocephin) 2,000 mg in 0.9% NaCl IV 50 mL IVPB ??? acetaminophen (Tylenol) suppository 650 mg Medications 0.9% NaCl injection 3 mL (3 mL Intracatheter $ Given 03/08/22 1526) And 0.9% NaCl injection 1-10 mL (has no administration in time range) lactated ringers IV bolus (2,040 mL Intravenous $ New Bag 03/08/22 1507) Followed by lactated ringers infusion ( Intravenous $ New Bag 03/08/22 1719) cefTRIAXone (Rocephin) 2,000 mg in 0.9% NaCl IV 50 mL IVPB (has no administration in time range) acetaminophen (Tylenol) suppository 650 mg (has no administration in time range) cefTRIAXone (Rocephin) 2,000 mg in 0.9% NaCl IV 50 mL IVPB (0 mg Intravenous Stopped 03/08/22 1513) Clinical Impression: 1. Fever, unspecified fever cause 2. dehydratio Disposition: Pending WILSON to Dr. Ozuna By signing my name below, I, Bria Russell, attest that this documentation has been prepared under the direction and in the presence of Dr. Hernandez. Signed: Laisha Gamez. I, Dr. Hernandez, personally performed the services described in this documentation. All medical recordentries made by the scribe were at my direction and in my presence. I have reviewed the chart and agree that the record reflects my personal performance and is accurate and complete. Electronically signed: Dr. Hernandez Date: 03/09/22 Time: 5:51 PM * Cami Robin RN - 03/08/2022 1:59 PM CDT Pt BIBEMS from SNF with worsening and mentation and lethargy as reported by family for 3 days. PT arrives with healing wound to the left foot. A&O to self - baseline A&Ox2. 89% on RA - placedon 2L; 127 HR. * Mandi Calero RN - 03/08/2022 1:54 PM CDT Bed: AC18 Expected date: Expected time: Means of arrival: Comments: [id number] A[place] from [place] documented in this encounter Miscellaneous Notes * Coding Query - Petra Fuentes MD - 03/18/2022 6:58 AM CDT DOCUMENTATION CLARIFICATION REQUEST TO: Dr. Fuentes, FROM: Agnieszka Palumbo RN CCDS Email: [email or web address] Please clarify and document if the patient is being treated/monitored for: - Acute hypoxic respiratory failure, present on admission - Other explanation of clinical findings (please specify) - Unable to determine (no explanation for clinical findings) The medical record reflects the following clinical evidence: Clinical Indicators: ED Note 10/10 O2 Saturation to 89% via room air, placed on 2 liters 10/10 O2 Saturation 90-100% on 2 liters via nasal cannula, RR 10-[address] 10/10 atelectasis, concern for aspiration pneumonia, multiple bilateral nodules, spiculated, may represent multifocal infection although adenocarcinoma can have a similar appearance Risk Factor(s): sepsis, lactic acidosis, metabolic encephalopathy on dementia, pneumonia Treatment: supplemental oxygen, pulse oximetry monitoring, aspiration precautions, antibiotics Please document your clinical opinion in the progress notes and discharge summary including the definitive and/or presumptive diagnosis, (suspected or probable), related to the above clinical findings. Please include clinical findings supporting your diagnosis. (Select Edit, then F2 to respond) Acute hypoxic respiratory failure, present on admission * Code/Rapid Response Event - Randall Cedillo RN - 03/16/2022 10:24 AM CDT RAPID RESPONSE EVENT NOTE [facility] [address] [place] [address] Patient: Mojgan Tabor Location: : 1960 Reason for Admission: No admission diagnoses are documented for this encounter. Provider Teams Team Primary Team Specialty Team Pager [facility] 2 Yes Internal Medicine [facility] Vascular Team No Vascular Surgery Event Date/Time: 03/16/2022 1010 Summary of Events: 1010 - The Rapid Response Team (CAFE MANAGER) was paged for patient becoming unresponsive. 1012 - rapid response RN at bedside, patient opens eyes to sternal rub, respirations even and unlabored on room air, breath sounds clear to auscultation bilaterally. Primary RN reports patient was finishing up working with physical therapy when suddenly became unresponsive with eyes rolling back, no myoclonic or other rhythmic movements noted. 1013 - vital signs as charted 1028 - Dr. Fuentes at bedside to assess patient. Prn ativan orders in place. 1035 - Patient responding appropriately to questions, patient given po medications 1040 - no new orders received at this time, patient back to baseline neuro status, rapid response will continue to monitor patient. Randall Cedillo RN Vital Signs: Patient Vitals for the past 24 hrs: Temp Pulse Resp BP SpO2 03/16/22 1013 (!) 100.1 ??F (37.8 ??C) 107 16 139/84 98 % 03/16/22 0849 98.7 ??F (37.1 ??C) 106 18 142/85 98 % 03/16/22 0342 98.2 ??F (36.8 ??C) 101 18 128/82 91 % 03/16/22 0015 98.9 ??F (37.2 ??C) 96 18 126/79 96 % 03/15/222041 98.3 ??F (36.8 ??C) 82 18 118/68 97 % 03/15/22 1650 -- 81 -- 120/76 96 % 03/15/22 1215 -- 77 16 92/60 94 % 03/15/22 1210 -- 78 11 98/65 93 % 03/15/22 1205 -- 80 14 86/57 93 % 03/15/22 1200 -- 82 17 86/57 93 % 03/15/22 1155 -- 82 17 87/60 94 % 03/15/22 1150 -- 80 17 95/65 95 % 03/15/22 1145 -- 78 15 95/63 100 % 03/15/22 1140 -- 80 15 87/62 100 % 03/15/22 1135 -- 78 14 104/68 100 % 03/15/22 1130 -- 81 16 103/65 100 % 03/15/22 1125 -- 81 16 99/67 100 % 03/15/22 1120 -- 80 19 103/68 99 % 03/15/22 1115 97.4 ??F (36.3 ??C) 82 16 111/74 98 % Outcome: Patient to remain in current room Randall Cedillo RN Rapid Response Nurse * Code/Rapid Response Event - Crews, Naa Matamoros RN - 03/11/2022 11:27 AM CDT RAPID RESPONSE EVENT NOTE [address] [address] Patient: Mojgan Tabor Location: : 1960 Reason for Admission: No admission diagnoses are documented for this encounter. Provider Teams Team Primary Team Specialty Team Pager [facility] 2 Yes Internal Medicine Event Date/Time: 03/11/2022 10:42 Summary of Events: The Rapid Response Team (CAFE MANAGER) was paged for decreased responsiveness. GCS 13 on my assessment. Labs and VS reviewed, VSS at present. Labs drawn and sent as ordered, ABG 7.47/41/80/30 on room air. Taken for non- contrast head CT and returned to room in stable condition. Vital Signs: Patient Vitals for the past 24 hrs: Temp Pulse Resp BP SpO2 03/11/22 1121 99.4 ??F (37.4 ??C) (!) 113 20 135/85 98 % 03/11/22 1057 97.6 ??F (36.4 ??C) (!) 114 22 143/84 100 % 03/11/22 0748 99.4 ??F (37.4 ??C) (!) 121 -- 161/91 100 % 03/11/22 0358 99.8 ??F (37.7 ??C) (!) 118 20 139/88 96 % 03/11/22 0159 -- (!) 123 -- -- 98 % 03/11/22 0031 98.8 ??F (37.1 ??C) (!) 125 18 152/86 96 % 03/10/222205 -- (!) 122 -- -- 100 % 03/10/222152 -- (!) 125 -- -- 100 % 03/10/222127 (!) 100.1 ??F (37.8 ??C) (!) 129 -- -- 97 % 03/10/22 1941 99.2 ??F (37.3 ??C) (!) 124 18 149/85 96 % 03/10/22 1617 99.7 ??F (37.6 ??C) (!) 117 -- 168/96 98 % 03/10/22 1437 99.8 ??F (37.7 ??C) (!) 112 22 154/89 98 % Outcome: Patient to remain in current room at current level of care. Rapid response will continue to follow patient closely. Naa Bullock RN Rapid Response Nurse [id number] * Code/Rapid Response Event - Blair Mojica MD - 03/11/2022 10:49 AM CDT Went to bedside to discuss patient with family at bedside, when presented PT/OT were attempting to wake patient and he was having a difficult time being aroused. Would open eyes to verbal stimuli aggressive. VS stable. Accucheck was 107. HR, 80s, BP 140/82, afebrile. Stat labs ordered including lactic acid, cmp, mag, phos, INR. Neuro contacted given extensive seizure history. Stat CT head ordered. Patient doesn't appear in acute distress and appears to be more alert as time went on. Family updated at bedside. Discussed with neuro they felt like EEG would be low yield at this time. Brief physical exam: Physical exam as listed above Gen: lethargic HEENT: pupils sluggish CV: RRR, Lungs: CTAB Neuro: arousable to verbal stimuli, wouldn't aemt hands on command Plan: Will follow up on labs/imaging as noted above -continue care at current location - if mentation continues to be poor will switch meds back to IV Blair Mojica MD 03/11/2022 10:54 AM 40 minutes was spent personally by me providing critical care at the bedside for this patient. * Coding Query - Agnieszka Palumbo RN - 03/09/2022 12:52 PM CDT DOCUMENTATION CLARIFICATION REQUEST TO: Dr. Palomino FROM: Agnieszka Palumbo RN CCDS Email: [email or web address] Please clarify and document if the patient is being treated/monitored for: - Acute hypoxic respiratory failure, present on admission - Other explanation of clinical findings (please specify) - Unable to determine (no explanation for clinical findings) The medical record reflects the following clinical evidence: Clinical Indicators: ED Note 10/10 O2 Saturation to 89% via room air, placed on 2 liters 10/10 O2 Saturation 90-100% on 2 liters via nasal cannula, RR 10-[address] 10/10 atelectasis, concern for aspiration pneumonia, multiple bilateral nodules, spiculated, may represent multifocal infection although adenocarcinoma can have a similar appearance Risk Factor(s): sepsis, lactic acidosis, metabolic encephalopathy on dementia, pneumonia Treatment: supplemental oxygen, pulse oximetry monitoring, aspiration precautions, antibiotics Please document your clinical opinion in the progress notes and discharge summary including the definitive and/or presumptive diagnosis, (suspected or probable), related to the above clinical findings. Please include clinical findings supporting your diagnosis. (Select Edit, then F2 to respond) documented in this encounter Plan of Treatment Upcoming Encounters Date Type Department Care Team (Late st Contact Info) Description 12/05/2024 1:00 PM CDT Office Visit [facility] - Neurology [address] [facility] [place] [address] Sean Raymundo, [address] [place] [address] documented as of this encounter Procedures Procedure Name Priority Date/Time Associated Diagnosis Comments GLUCOSE - POINT OF CARE Routine 04/01/2022 8:13 AM CDT CBC W/O DIFFERENTIAL Routine 04/01/2022 6:08 AM CDT BASIC METABOLIC PANEL (CALCIUM TOTAL) AM Draw 04/01/2022 6:08 AM CDT GLUCOSE - POINT OF CARE Routine 03/31/2022 11:40 PM CDT GLUCOSE - POINT OF CARE Routine 03/31/2022 5:31 PM CDT GLUCOSE - POINT OF CARE Routine 03/31/2022 12:28 PM CDT GLUCOSE - POINT OF CARE Routine 03/31/2022 7:45 AM CDT CBC W/O DIFFERENTIAL Routine 03/31/2022 6:37 AM CDT BASIC METABOLIC PANEL (CALCIUM TOTAL) AM Draw 03/31/2022 6:37 AM CDT GLUCOSE - POINT OF CARE Routine 03/30/2022 5:14 PM CDT GLUCOSE - POINT OF CARE Routine 03/30/2022 12:22 PM CDT GLUCOSE - POINT OF CARE Routine 03/30/2022 7:41 AM CDT CBC W/O DIFFERENTIAL Routine 03/30/2022 2:16 AM CDT BASIC METABOLIC PANEL (CALCIUM TOTAL) AM Draw 03/30/2022 2:16 AM CDT GLUCOSE - POINT OF CARE Routine 03/29/2022 5:03 PM CDT GLUCOSE - POINT OF CARE Routine 03/29/2022 11:55 AM CDT GLUCOSE - POINT OF CARE Routine 03/29/2022 7:58 AM CDT CBC W/O DIFFERENTIAL Routine 03/29/2022 3:18 AM CDT BASIC METABOLIC PANEL (CALCIUM TOTAL) AM Draw 03/29/2022 3:18 AM CDT GLUCOSE - POINT OF CARE Routine 03/28/2022 10:05 PM CDT GLUCOSE - POINT OF CARE Routine 03/28/2022 1:18 PM CDT CBC W/O DIFFERENTIAL Routine 03/28/2022 11:05 AM CDT BASIC METABOLIC PANEL (CALCIUM TOTAL) AM Draw 03/28/2022 11:05 AM CDT GLUCOSE - POINT OF CARE Routine 03/28/2022 7:35 AM CDT GLUCOSE - POINT OF CARE Routine 03/27/2022 11:39 AM CDT GLUCOSE - POINT OF CARE Routine 03/27/2022 8:43 AM CDT CBC W/O DIFFERENTIAL Routine 03/27/2022 3:29 AM CDT BASIC METABOLIC PANEL (CALCIUM TOTAL) AM Draw 03/27/2022 3:29 AM CDT GLUCOSE - POINT OF CARE Routine 03/26/2022 5:47 PM CDT GLUCOSE - POINT OF CARE Routine 03/26/2022 11:59 AM CDT GLUCOSE - POINT OF CARE Routine 03/26/2022 8:45 AM CDT CBC W/O DIFFERENTIAL Routine 03/26/2022 7:25 AM CDT BASIC METABOLIC PANEL (CALCIUM TOTAL) AM Draw 03/26/2022 7:25 AM CDT ME ED EGD FLEX TRANSORAL DX 03/25/2022 4:35 PM CDT Malnutrition, unspecified type (HCC) EGD Routine 03/25/2022 4:19 PM CDT GLUCOSE - POINT OF CARE Routine 03/25/2022 11:11 AM CDT GLUCOSE - POINT OF CARE Routine 03/25/2022 8:12 AM CDT CBC W/O DIFFERENTIAL Routine 03/25/2022 3:51 AM CDT BASIC METABOLIC PANEL (CALCIUM TOTAL) AM Draw 03/25/2022 3:51 AM CDT GLUCOSE - POINT OF CARE Routine 03/24/2022 4:28 PM CDT GLUCOSE - POINT OF CARE Routine 03/24/2022 12:01 PM CDT GLUCOSE - POINT OF CARE Routine 03/24/2022 8:25 AM CDT CBC W/O DIFFERENTIAL Routine 03/24/2022 2:58 AM CDT BASIC METABOLIC PANEL (CALCIUM TOTAL) AM Draw 03/24/2022 2:58 AM CDT PHOSPHORUS BLOOD Routine 03/24/2022 2:58 AM CDT MAGNESIUM BLOOD Routine 03/24/2022 2:58 AM CDT GLUCOSE - POINT OF CARE Routine 03/23/2022 4:20 PM CDT CBC W/O DIFFERENTIAL Routine 03/23/2022 3:39 AM CDT BASIC METABOLIC PANEL (CALCIUM TOTAL) AM Draw 03/23/2022 3:39 AM CDT GLUCOSE - POINT OF CARE Routine 03/22/2022 5:05 PM CDT FL SWALLOWING FUNCTION STUDY Routine 03/22/2022 2:20 PM CDT Sepsis without acute organ dysfunction, due to unspecified organism (HCC) CBC W/O DIFFERENTIAL Routine 03/22/2022 3:51 AM CDT BASIC METABOLIC PANEL (CALCIUM TOTAL) AM Draw 03/22/2022 3:51 AM CDT GLUCOSE - POINT OF CARE Routine 03/21/2022 8:39 AM CDT CBC W/O DIFFERENTIAL Routine 03/21/2022 2:19 AM CDT BASIC METABOLIC PANEL (CALCIUM TOTAL) AM Draw 03/21/2022 2:19 AM CDT CBC W/O DIFFERENTIAL Routine 03/20/2022 3:30 AM CDT BASIC METABOLIC PANEL (CALCIUM TOTAL) AM Draw 03/20/2022 3:30 AM CDT GLUCOSE - POINT OF CARE Routine 03/19/2022 8:14 PM CDT CBC W/O DIFFERENTIAL Routine 03/19/2022 2:03 AM CDT BASIC METABOLIC PANEL (CALCIUM TOTAL) AM Draw 03/19/2022 2:03 AM CDT BASIC METABOLIC PANEL (CALCIUM TOTAL) Routine 03/18/2022 6:06 AM CDT VANCOMYCIN LEVEL TROUGH Timed 03/18/2022 6:[address] HEAD WO CONTRAST STAT 03/17/2022 5 :32 PM CDT Sepsis without acute organ dysfunction, due to unspecified organism (HCC) XR CHEST 1VW PORTABLE Routine 03/17/2022 3:56 PM CDT Sepsis without acute organ dysfunction, due to unspecified organism (HCC) GLUCOSE - POINT OF CARE Routine 03/17/2022 1:45 PM CDT CBC W/O DIFFERENTIAL Routine 03/17/2022 11:12 AM CDT COMPREHENSIVE METABOLIC PANEL Routine 03/17/2022 11:12 AM CDT LACOSAMIDE AM Draw 03/17/2022 5:25 AM CDT EEG VIDEO MONITORING Routine 03/16/2022 1:16 PM CDT GLUCOSE - POINT OF CARE Routine 03/16/2022 10:11 AM CDT CBC W AUTO DIFFERENTIAL AM Draw 03/16/2022 6:19 AM CDT RENAL FUNCTION PANEL AM Draw 03/16/2022 6:19 AM CDT MAGNESIUM BLOOD Routine 03/16/2022 6:19 AM CDT OT EVAL AND TREAT Routine 03/15/2022 1:1 8 PM CDT PT EVAL AND TREAT Routine 03/15/2022 1:1 8 PM CDT PATHOLOGY TISSUE Routine 03/15/2022 10:1 6 AM CDT Dry gangrene (HCC) VANCOMYCIN LEVEL TROUGH Timed 03/15/2022 6:38 AM CDT MRI FOOT LEFT WWO CONTRAST Routine 03/15/2022 12:56 AM CDT Bacteremia PAD (peripheral artery disease) (HCC) CBC W AUTO DIFFERENTIAL AM Draw 03/14/2022 10:03 PM CDT RENAL FUNCTION PANEL AM Draw 03/14/2022 10:03 PM CDT MAGNESIUM BLOOD Routine 03/14/2022 10:03 PM CDT TYPE + SCREEN PANEL Routine 03/14/2022 1 0:01 PM CDT CBC W AUTO DIFFERENTIAL AM Draw 03/14/2022 4:58 AM CDT COMPREHENSIVE METABOLIC PANEL AM Draw 03/14/2022 4:58 AM CDT PHOSPHORUS BLOOD Routine 03/14/2022 4:58 AM CDT MAGNESIUM BLOOD Routine 03/14/2022 4:58 AM CDT GLUCOSE - POINT OF CARE Routine 03/13/2022 11:00 PM CDT VANCOMYCIN LEVEL TROUGH Timed 03/13/2022 10:50 PM CDT GLUCOSE - POINT OF CARE Routine 03/13/2022 8:46 AM CDT CBC W AUTO DIFFERENTIAL AM Draw 03/13/2022 4:19 AM CDT RENAL FUNCTION PANEL AM Draw 03/13/2022 4:19 AM CDT MAGNESIUM BLOOD Routine 03/13/2022 4:19 AM CDT CULTURE BLOOD Timed 03/12/2022 2:00 AM CDT CULTURE BLOOD Timed 03/12/2022 1:58 AM CDT CBC W AUTO DIFFERENTIAL AM Draw 03/12/2022 1:58 AM CDT RENAL FUNCTION PANEL AM Draw 03/12/2022 1:58 AM CDT MAGNESIUM BLOOD Routine 03/12/2022 1:58 AM CDT VALPROIC ACID LEVEL Timed 03/12/2022 1 :58 AM CDT VANCOMYCIN LEVEL TROUGH Timed 03/11/2022 11:39 PM CDT ECHO COMPLETE Routine 03/11/2022 3:29 PM CDT Sepsis without acute organ dysfunction, due to unspecified organism (HCC) URINALYSIS REFLEX TO MICROSCOPIC NO CULTURE Routine 03/11/2022 1:[address] HEAD WO CONTRAST STAT 03/11/2022 1 1:15 AM CDT Bacteremia PT-INR [facility] STAT 03/11/2022 10:59 AM CDT CBC W AUTO DIFFERENTIAL STAT 03/11/2022 10:59 AM CDT COMPREHENSIVE METABOLIC PANEL STAT 03/11/2022 10:59 AM CDT PHOSPHORUS BLOOD STAT 03/11/2022 10:5 9 AM CDT MAGNESIUM BLOOD STAT 03/11/2022 10:59 AM CDT LACTIC ACID BLOOD STAT 03/11/2022 10: 59 AM CDT BLOOD GASES ART + COOX PANEL STAT 03/11/2022 10:59 AM CDT GLUCOSE - POINT OF CARE Routine 03/11/2022 10:41 AM CDT CULTURE BLOOD Timed 03/11/2022 3:48 AM CDT CULTURE BLOOD Timed 03/11/2022 3:[address] HEAD WO CONTRAST Routine 03/10/2022 4 :04 PM CDT Acute encephalopathy CLOBAZAM QUANT BLOOD AM Draw 03/10/2022 11:47 AM CDT LACOSAMIDE AM Draw 03/10/2022 11:47 AM CDT CBC W/O DIFFERENTIAL AM Draw 03/10/2022 11:47 AM CDT RENAL FUNCTION PANEL AM Draw 03/10/2022 11:47 AM CDT MAGNESIUM BLOOD Routine 03/10/2022 11:47 AM CDT VANCOMYCIN LEVEL TROUGH Timed 03/10/2022 11:47 AM CDT OT EVAL AND TREAT Routine 03/10/2022 10: 36 AM CDT PT EVAL AND TREAT Routine 03/10/2022 10: 36 AM CDT VAS LEFT ARTERIAL DUPLEX LE Routine 03/09/2022 4:34 PM CDT Sepsis without acute organ dysfunction, due to unspecified organism (HCC) VAS ARTERIAL ANKLE ARM INDEX Routine 03/09/2022 4:27 PM CDT Sepsis without acute organ dysfunction, due to unspecified organism (HCC) CARDIAC EKG ORDER 03/09/2022 12: 07 PM CDT MRSA DNA PCR STAT 03/09/2022 8:06 AM CDT COMPREHENSIVE METABOLIC PANEL STAT 03/09/2022 4:11 AM CDT PROCALCITONIN LEVEL STAT 03/09/2022 2 :00 AM CDT CULTURE BLOOD Timed 03/09/2022 2:00 AM CDT CULTURE BLOOD Timed 03/09/2022 1:35 AM CDT DIFFERENTIAL MANUAL STAT 03/09/2022 1 :35 AM CDT CBC W AUTO DIFFERENTIAL STAT 03/09/2022 1:35 AM CDT LACTIC ACID BLOOD Timed 03/09/2022 1:[address] CHEST ABDOMEN PELVIS W CONT STAT 03/08/2022 10:05 PM CDT Fever, unspecified fever cause SARS-COV-2 (COVID-19)+INFLU A+B PCR RAPID STAT 03/08/2022 9:38 PM CDT LACTIC ACID BLOOD REFLEX TO REPEAT Timed STAT 03/08/2022 9:37 PM CDT TROPONIN I Timed 03/08/2022 9:37 PM CDT LACTIC ACID BLOOD REFLEX TO REPEAT Timed STAT 03/08/2022 5:26 PM CDT LACTIC ACID REPEAT REFLEX Timed STAT 03/08/2022 5:26 PM CDT TROPONIN I Timed 03/08/2022 5:26 PM CDT URINALYSIS REFLEX TO MICROSCOPIC NO CULTURE STAT 03/08/2022 5:26 PM CDT CULTURE URINE STAT 03/08/2022 5:26 PM CDT XR FOOT LEFT 3VW OR MORE STAT 03/08/2022 3:38 PM CDT Fever, unspecified fever cause XR CHEST 1VW PORTABLE STAT 03/08/2022 3:37 PM CDT Fever, unspecified fever cause CULTURE BLOOD Timed 03/08/2022 3:01 PM CDT VALPROIC ACID LEVEL STAT 03/08/2022 3 :01 PM CDT LACTIC ACID BLOOD REFLEX TO REPEAT STAT 03/08/2022 2:55 PM CDT LACTIC ACID REPEAT REFLEX STAT 03/08/2022 2:55 PM CDT LEVETIRACETAM LEVEL STAT 03/08/2022 2 :55 PM CDT TROPONIN I STAT 03/08/2022 2:55 PM CDT CULTURE BLOOD Timed 03/08/2022 2:55 PM CDT DIFFERENTIAL MANUAL STAT 03/08/2022 2 :55 PM CDT CBC W AUTO DIFFERENTIAL STAT 03/08/2022 2:55 PM CDT COMPREHENSIVE METABOLIC PANEL STAT 03/08/2022 2:55 PM CDT GLUCOSE - POINT OF CARE Routine 03/08/2022 2:31 PM CDT EKG 12-LEAD STAT 03/08/2022 2:05 PM CDT Fever, unspecified fever cause documented in this encounter Results * (ABNORMAL) GLUCOSE - POINT OF CARE (04/01/2022 8:13 AM CDT) Glucose WB/POC 126(H) 70 - 115 mg/dL 04/01/2022 8:14 AM CDT [facility] Specimen Type Cap Fingerstick 2021 8:14 AM CDT [facility] Blood BLOOD SPECIMEN / Unknown 04/01/2022 8:13 AM CDT 04/01/2022 8:14 AM CDT Dante Nuno MD LAB - POINT OF CARE ORDERABLES [facility] [address] [place] [phone], [facility] [phone] * (ABNORMAL) BASIC METABOLIC PANEL (CALCIUM TOTAL) (04/01/2022 6:08 AM CDT) BUN 12 7 - 26 mg/dL 04/01/2022 6:50 AM [facility] Creatinine 0.49(L) 0.71 - 1.16 mg/dL 04/01/2022 6:50 AM [facility] Sodium 138 136 - 145 mmol/L 04/01/2022 6:50 AM [facility] Potassium 4.3 3.5 - 4.5 mmol/L 04/01/2022 6:50 AM [facility] Chloride 104 98 - 107 mmol/L 04/01/2022 6:50 AM [facility] CO2 29 22 - 29 mmol/L 04/01/2022 6:50 AM [facility] Glucose 118(H) 70 - 115 mg/dL 04/01/2022 6:50 AM [facility] Calcium 9.2 8.4 - 10.2 mg/dL 04/01/2022 6:50 AM [facility] Anion Gap 9 8 - 18 04/01/2022 6:50 AM [facility] BUN/Creatinine Ratio 24(H) 7 - 23 04/01/2022 6:50 AM [facility] Osmolality Calculated 287 270 - 300 mOsm/kg 04/01/2022 6:50 AM [facility] eGFR by CKD-EPI >90 >=90 mL/min/1.7 3 m2 04/01/2022 6:50 AM [facility] Blood BLOOD SPECIMEN / Unknown Lab Venipuncture / Unknown 04/01/2022 6:08 AM CDT 04/01/2022 6:20 AM CDT Petra Fuentes MD LAB - CHEMISTRY [facility] [address] [place] [address] [phone] * (ABNORMAL) CBC W/O DIFFERENTIAL (04/01/2022 6:08 AM [facility]) [facility] WBC 8.2 3.5 - 10.5 10? 3 /uL 04/01/2022 6:26 AM [facility] RBC 3.43(L) 4.30 - 5.70 10? 6 /uL 04/01/2022 6:26 AM [facility] Hemoglobin 11.0(L) 12.0 - 17.6 g/dL 04/01/2022 6:26 AM [facility] Hematocrit 33.9(L) 35.2 - 51.7 % 04/01/2022 6:26 AM [facility] MCV 98.8(H) 80.7 - 98.3 fL 04/01/2022 6:26 AM [facility] MCH 32.1 26.7 - 34.0 pg 04/01/2022 6:26 AM [facility] MCHC 32.4 30.8 - 35.9 g/dL 04/01/2022 6:26 AM [facility] RDW-SD 51.7(H) 36.0 - 50.0 fL 04/01/2022 6:26 AM [facility] RDW-CV 14.1 11.2 - 14.8 % 04/01/2022 6:26 AM [facility] Platelet Count 219 150 - 400 10? 3 /uL 04/01/2022 6:26 AM [facility] MPV 11.2 9.4 - 12.9 fL 04/01/2022 6:26 AM [facility] nRBC Absolute 0.00 0 10? 3 /uL 04/01/2022 6:26 AM [facility] nRBC Auto 0.0 0 /100 WBC 04/01/2022 6:26 AM [facility] Blood BLOOD SPECIMEN / Unknown Lab Venipuncture / Unknown 04/01/2022 6:08 AM CDT 04/01/2022 6:19 AM CDT Petra Fuentes MD LAB - HEMATOLOGY ORD ERABLES [address] [address], [place] [phone] * GLUCOSE - POINT OF CARE (03/31/2022 11:40 PM CDT) Glucose WB/POC 112 70 - 115 mg/dL 03/31/2022 11:41 PM CDT [facility] Specimen Type Cap Fingerstick 2021 11:41 PM CDT [facility] Blood BLOOD SPECIMEN / Unknown 03/31/2022 11:40 PM CDT 03/31/2022 11:41 PM CDT Dante Nuno MD LAB - POINT OF CARE ORDERABLES [address] [address], [place] [phone] * (ABNORMAL) GLUCOSE - POINT OF CARE (03/31/2022 5:31 PM CDT) Glucose WB/POC 127(H) 70 - 115 mg/dL 03/31/2022 5:39 PM CDT [facility] Specimen Type Cap Fingerstick 2021 5:39 PM CDT [facility] Blood BLOOD SPECIMEN / Unknown 03/31/2022 5:31 PM CDT 03/31/2022 5:39 PM CDT Dante Nuno MD LAB - POINT OF CARE ORDERABLES [address] [address], [place] [phone] * GLUCOSE - POINT OF CARE (03/31/2022 12:28 PM CDT) Glucose WB/POC 94 70 - 115 mg/dL 03/31/2022 12:33 PM CDT [facility] Specimen Type Cap Fingerstick 2021 12:33 PM CDT [facility] Blood BLOOD SPECIMEN / Unknown 03/31/2022 12:28 PM CDT 03/31/2022 12:33 PM CDT Dante Nuno MD LAB - POINT OF CARE ORDERABLES [facility] [address] [place] [address], [place] [phone] * GLUCOSE - POINT OF CARE (03/31/2022 7:45 AM CDT) Glucose WB/POC 114 70 - 115 mg/dL 03/31/2022 7:46 AM CDT [facility] Specimen Type Cap Fingerstick 2021 7:46 AM T [facility] Blood BLOOD SPECIMEN / Unknown 03/31/2022 7:45 AM CDT 03/31/2022 7:46 AM CDT Dante Nnuo MD LAB - POINT OF CARE ORDERABLES [facility] [address] [place] [address], [place] [phone] * (ABNORMAL) BASIC METABOLIC PANEL (CALCIUM TOTAL) (03/31/2022 6:37 AM CDT) BUN 14 7 - 26 mg/dL 03/31/2022 8:05 AM [facility] Creatinine 0.46(L) 0.71 - 1.16 mg/dL 03/31/2022 8:05 AM [facility] Sodium 137 136 - 145 mmol/L 03/31/2022 8:05 AM [facility] Potassium 4.4 3.5 - 4.5 mmol/L 03/31/2022 8:05 AM [facility] Chloride 102 98 - 107 mmol/L 03/31/2022 8:05 AM [facility] CO2 31(H) 22 - 29 mmol/L 03/31/2022 8:05 AM [facility] Glucose 104 70 - 115 mg/dL 03/31/2022 8:05 AM [facility] Calcium 9.3 8.4 - 10.2 mg/dL 03/31/2022 8:05 AM [facility] Anion Gap 8 8 - 18 03/31/2022 8:05 AM [facility] BUN/Creatinine Ratio 30(H) 7 - 23 03/31/2022 8:05 AM [facility] Osmolality Calculated 285 270 - 300 mOsm/kg 03/31/2022 8:05 AM [facility] eGFR by CKD-EPI >90 >=90 mL/min/1.7 3 m2 03/31/2022 8:05 AM [facility] Blood BLOOD SPECIMEN / Unknown Lab Venipuncture / Unknown 03/31/2022 6:37 AM CDT 03/31/2022 7:35 AM CDT Petra Fuentes MD LAB - CHEMISTRY [facility] Organization Address City/State/[facility] Co de Phone Number [address] [address], [facility] [phone] * (ABNORMAL) CBC W/O DIFFERENTIAL (03/31/2022 6:37 AM CDT) WBC 8.5 3.5 - 10.5 10? 3 /uL 03/31/2022 7:46 AM [facility] RBC 3.34(L) 4.30 - 5.70 10? 6 /uL 03/31/2022 7:46 AM [facility] Hemoglobin 10.8(L) 12.0 - 17.6 g/dL 03/31/2022 7:46 AM [facility] Hematocrit 33.0(L) 35.2 - 51.7 % 03/31/2022 7:46 AM [facility] MCV 98.8(H) 80.7 - 98.3 fL 03/31/2022 7:46 AM [facility] MCH 32.3 26.7 - 34.0 pg 03/31/2022 7:46 AM [facility] MCHC 32.7 30.8 - 35.9 g/dL 03/31/2022 7:46 AM [facility] RDW-SD 51.2(H) 36.0 - 50.0 fL 03/31/2022 7:46 AM [facility] RDW-CV 14.2 11.2 - 14.8 % 03/31/2022 7:46 AM [facility] Platelet Count 238 150 - 400 10? 3 /uL 03/31/2022 7:46 AM [facility] MPV 12.2 9.4 - 12.9 fL 03/31/2022 7:46 AM [facility] nRBC Absolute 0.00 0 10? 3 /uL 03/31/2022 7:46 AM [facility] nRBC Auto 0.0 0 /100 WBC 03/31/2022 7:46 AM [facility] Blood BLOOD SPECIMEN / Unknown Lab Venipuncture / Unknown 03/31/2022 6:37 AM CDT 03/31/2022 7:35 AM CDT Petra Fuentes MD LAB - HEMATOLOGY ORD ERABLES [address] [address], [facility] [phone] * (ABNORMAL) GLUCOSE - POINT OF CARE (03/30/2022 5:14 PM CDT) Glucose WB/POC 130(H) 70 - 115 mg/dL 03/30/2022 5:14 PM CDT [facility] Specimen Type Cap Fingerstick 2021 5:14 PM CDT [facility] Blood BLOOD SPECIMEN / Unknown 03/30/2022 5:14 PM CDT 03/30/2022 5:14 PM CDT Dante Nuno MD LAB - POINT OF CARE ORDERABLES [address] [address], [place] [phone] * GLUCOSE - POINT OF CARE (03/30/2022 12:22 PM CDT) Glucose WB/POC 98 70 - 115 mg/dL 03/30/2022 12:31 PM CDT [facility] Specimen Type Cap Fingerstick 2021 12:31 PM CDT [facility] Blood BLOOD SPECIMEN / Unknown 03/30/2022 12:22 PM CDT 03/30/2022 12:31 PM CDT Dante Nuno MD LAB - POINT OF CARE ORDERABLES [facility] [address] [place] [address], [place] [phone] * (ABNORMAL) GLUCOSE - POINT OF CARE (03/30/2022 7:41 AM CDT) Glucose WB/POC 118(H) 70 - 115 mg/dL 03/30/2022 7:42 AM CDT [facility] Specimen Type Cap Fingerstick 2021 7:42 AM CDT [facility] Blood BLOOD SPECIMEN / Unknown 03/30/2022 7:41 AM CDT 03/30/2022 7:41 AM CDT Dante Nuno MD LAB - POINT OF CARE ORDERABLES Performing Organization Address City/[facility]/ZIP Co de Phone Number [facility] [address] [place] [phone], [place] [phone] * (ABNORMAL) BASIC METABOLIC PANEL (CALCIUM TOTAL) (03/30/2022 2:16 AM CDT) BUN 13 7 - 26 mg/dL 03/30/2022 3:55 AM CDT [facility] Creatinine 0.55(L) 0.71 - 1.16 mg/dL 03/30/2022 3:55 AM CDT [facility] Sodium 140 136 - 145 mmol/L 03/30/2022 3:55 AM CDT [facility] Potassium 4.9(H) 3.5 - 4.5 mmol/L 03/30/2022 3:55 AM [facility] Chloride 103 98 - 107 mmol/L 03/30/2022 3:55 AM [facility] CO2 26 22 - 29 mmol/L 03/30/2022 3:55 AM [facility] Glucose 82 70 - 115 mg/dL 03/30/2022 3:55 AM [facility] Calcium 9.6 8.4 - 10.2 mg/dL 03/30/2022 3:55 AM [facility] Anion Gap 16 8 - 18 03/30/2022 3:55 AM [facility] BUN/Creatinine Ratio 24(H) 7 - 23 03/30/2022 3:55 AM [facility] Osmolality Calculated 289 270 - 300 mOsm/kg 03/30/2022 3:55 AM [facility] eGFR by CKD-EPI >90 >=90 mL/min/1.7 3 m2 03/30/2022 3:55 AM [facility] Blood BLOOD SPECIMEN / Unknown Lab Venipuncture / Unknown 03/30/2022 2:16 AM CDT 03/30/2022 3:24 AM CDT Petra Fuentes MD LAB - CHEMISTRY [facility] Organization Address City/State/ZIP Co de Phone Number [facility] [address] [place] [phone], [facility] [phone] * (ABNORMAL) CBC W/O DIFFERENTIAL (03/30/2022 2:16 AM CDT) WBC 6.8 3.5 - 10.5 10? 3 /uL 03/30/2022 3:29 AM [facility] RBC 3.83(L) 4.30 - 5.70 10? 6 /uL 03/30/2022 3:29 AM [facility] Hemoglobin 12.2 12.0 - 17.6 g/dL 03/30/2022 3:29 AM [facility] Hematocrit 37.5 35.2 - 51.7 % 03/30/2022 3:29 AM [facility] MCV 97.9 80.7 - 98.3 fL 03/30/2022 3:29 AM [facility] MCH 31.9 26.7 - 34.0 pg 03/30/2022 3:29 AM [facility] MCHC 32.5 30.8 - 35.9 g/dL 03/30/2022 3:29 AM [facility] RDW-SD 51.1(H) 36.0 - 50.0 fL 03/30/2022 3:29 AM [facility] RDW-CV 14.2 11.2 - 14.8 % 03/30/2022 3:29 AM [facility] Platelet Count 240 150 - 400 10? 3 /uL 03/30/2022 3:29 AM [facility] MPV 11.9 9.4 - 12.9 fL 03/30/2022 3:29 AM [facility] nRBC Absolute 0.00 0 10? 3 /uL 03/30/2022 3:29 AM [facility] nRBC Auto 0.0 0 /100 WBC 03/30/2022 3:29 AM [facility] Blood BLOOD SPECIMEN / Unknown Lab Venipuncture / Unknown 03/30/2022 2:16 AM CDT 03/30/2022 3:24 AM CDT Petra Fuentes MD LAB - HEMATOLOGY ORD ERABLES [facility] [address] [place] [address], [facility] [phone] * (ABNORMAL) GLUCOSE - POINT OF CARE (03/29/2022 5:03 PM CDT) Pathologist [facility] Glucose WB/POC 120(H) 70 - 115 mg/dL 03/29/2022 5:07 PM CDT [facility] Specimen Type Cap Fingerstick 2021 5:07 PM T [facility] Blood BLOOD SPECIMEN / Unknown 03/29/2022 5:03 PM CDT 03/29/2022 5:07 PM CDT Artur Mcgraw MD LAB - POINT OF CARE ORDERABLES [address] [address], [place] [phone] * (ABNORMAL) GLUCOSE - POINT OF CARE (03/29/2022 11:55 AM CDT) Glucose WB/POC 133(H) 70 - 115 mg/dL 03/29/2022 12:00 PM CDT [facility] Specimen Type Cap Fingerstick 2021 12:00 PM CDT [facility] Blood BLOOD SPECIMEN / Unknown 03/29/2022 11:55 AM CDT 03/29/2022 12:00 PM CDT Artur Mcgraw MD LAB - POINT OF CARE ORDERABLES Performing Organization Address City/[facility]/ZIP Co de Phone Number [address] [address], [place] [phone] * GLUCOSE - POINT OF CARE (03/29/2022 7:58 AM CDT) Glucose WB/POC 107 70 - 115 mg/dL 03/29/2022 8:06 AM CDT [facility] Specimen Type Cap Fingerstick 2021 8:06 AM CDT [facility] Blood BLOOD SPECIMEN / Unknown 03/29/2022 7:58 AM CDT 03/29/2022 8:06 AM CDT Artur Mcgraw MD LAB - POINT OF CARE ORDERABLES [address] [address], [place] [phone] * (ABNORMAL) BASIC METABOLIC PANEL (CALCIUM TOTAL) (03/29/2022 3:18 AM CDT) BUN 11 7 - 26 mg/dL 03/29/2022 6:39 AM CDT [facility] Creatinine 0.50(L) 0.71 - 1.16 mg/dL 03/29/2022 6:39 AM [facility] Sodium 139 136 - 145 mmol/L 03/29/2022 6:39 AM [facility] Potassium 4.2 3.5 - 4.5 mmol/L 03/29/2022 6:39 AM [facility] Chloride 102 98 - 107 mmol/L 03/29/2022 6:39 AM [facility] CO2 28 22 - 29 mmol/L 03/29/2022 6:39 AM [facility] Glucose 96 70 - 115 mg/dL 03/29/2022 6:39 AM [facility] Calcium 9.3 8.4 - 10.2 mg/dL 03/29/2022 6:39 AM [facility] Anion Gap 13 8 - 18 03/29/2022 6:39 AM [facility] BUN/Creatinine Ratio 22 7 - 23 03/29/2022 6:39 AM [facility] Osmolality Calculated 287 270 - 300 mOsm/kg 03/29/2022 6:39 AM [facility] eGFR by CKD-EPI >90 >=90 mL/min/1.7 3 m2 03/29/2022 6:39 AM [facility] Blood BLOOD SPECIMEN / Unknown Lab Venipuncture / Unknown 03/29/2022 3:18 AM CDT 03/29/2022 6:12 AM CDT Petra Fuentes MD LAB - CHEMISTRY [facility] Organization Address [facility]/State/[facility] Co de Phone Number [facility] [address] [place] [address] [phone] * (ABNORMAL) CBC W/O DIFFERENTIAL (03/29/2022 3:18 AM CDT) WBC 5.6 3.5 - 10.5 10? 3 /uL 03/29/2022 6:55 AM [facility] RBC 3.35(L) 4.30 - 5.70 10? 6 /uL 03/29/2022 6:55 AM [facility] Hemoglobin 10.8(L) 12.0 - 17.6 g/dL 03/29/2022 6:55 AM [facility] Hematocrit 33.1(L) 35.2 - 51.7 % 03/29/2022 6:55 AM [facility] MCV 98.8(H) 80.7 - 98.3 fL 03/29/2022 6:55 AM [facility] MCH 32.2 26.7 - 34.0 pg 03/29/2022 6:55 AM [facility] MCHC 32.6 30.8 - 35.9 g/dL 03/29/2022 6:55 AM [facility] RDW-SD 52.3(H) 36.0 - 50.0 fL 03/29/2022 6:55 AM [facility] RDW-CV 14.4 11.2 - 14.8 % 03/29/2022 6:55 AM [facility] Platelet Count 260 150 - 400 10? 3 /uL 03/29/2022 6:55 AM [facility] MPV 12.1 9.4 - 12.9 fL 03/29/2022 6:55 AM [facility] nRBC Absolute 0.00 0 10? 3 /uL 03/29/2022 6:55 AM [facility] nRBC Auto 0.0 0 /100 WBC 03/29/2022 6:55 AM [facility] Blood BLOOD SPECIMEN / Unknown Lab Venipuncture / Unknown 03/29/2022 3:18 AM CDT 03/29/2022 6:13 AM CDT Petra Fuentes MD LAB - HEMATOLOGY ORD ERABLES [facility] [address] [place] [address], [facility] [phone] * GLUCOSE - POINT OF CARE (03/28/2022 10:05 PM CDT) Glucose WB/POC 111 70 - 115 mg/dL 03/28/2022 10:13 PM [facility] Specimen Type Cap Fingerstick 2021 10:13 PM [facility] Blood BLOOD SPECIMEN / Unknown 03/28/2022 10:05 PM CDT 03/28/2022 10:13 PM CDT Artur Mcgraw MD LAB - POINT OF CARE ORDERABLES [facility] [address] [place] [id number], [facility] [phone] * GLUCOSE - POINT OF CARE (03/28/2022 1:18 PM CDT) Pathologist [facility] Glucose WB/POC 99 70 - 115 mg/dL 03/28/2022 1:23 PM CDT [facility] Specimen Type Cap Fingerstick 2021 1:23 PM CDT [facility] Blood BLOOD SPECIMEN / Unknown 03/28/2022 1:18 PM CDT 03/28/2022 1:23 PM CDT Artur Mcgraw MD LAB - POINT OF CARE ORDERABLES [address] [address], [place] [phone] * (ABNORMAL) BASIC METABOLIC PANEL (CALCIUM TOTAL) (03/28/2022 11:05 AM CDT) Pathologist [facility] BUN 11 7 - 26 mg/dL 03/28/2022 11:41 AM [facility] Creatinine 0.49(L) 0.71 - 1.16 mg/dL 03/28/2022 11:41 AM [facility] Sodium 138 136 - 145 mmol/L 03/28/2022 11:41 AM [facility] Potassium 4.8(H) 3.5 - 4.5 mmol/L 03/28/2022 11:41 AM [facility] Chloride 103 98 - 107 mmol/L 03/28/2022 11:41 AM [facility] CO2 27 22 - 29 mmol/L 03/28/2022 11:41 AM [facility] Glucose 115 70 - 115 mg/dL 03/28/2022 11:41 AM [facility] Calcium 9.2 8.4 - 10.2 mg/dL 03/28/2022 11:41 AM [facility] Anion Gap 13 8 - 18 03/28/2022 11:41 AM [facility] BUN/Creatinine Ratio 22 7 - 23 03/28/2022 11:41 AM [facility] Osmolality Calculated 286 270 - 300 mOsm/kg 03/28/2022 11:41 AM [facility] eGFR by CKD-EPI >90 >=90 mL/min/1.7 3 m2 03/28/2022 11:41 AM [facility] Blood BLOOD SPECIMEN / Unknown Lab Venipuncture / Unknown 03/28/2022 11:05 AM CDT 03/28/2022 11:15 AM [facility] Petra Fuentes MD LAB - CHEMISTRY [facility] Organization Address City/State/ZIP Co de Phone Number [facility] [address] [place] [address], [facility] [phone] * (ABNORMAL) CBC W/O DIFFERENTIAL (03/28/2022 11:05 AM T) WBC 5.8 3.5 - 10.5 10? 3 /uL 03/28/2022 11:29 AM [facility] RBC 3.48(L) 4.30 - 5.70 10? 6 /uL 03/28/2022 11:29 AM [facility] Hemoglobin 11.2(L) 12.0 - 17.6 g/dL 03/28/2022 11:29 AM [facility] Hematocrit 34.0(L) 35.2 - 51.7 % 03/28/2022 11:29 AM [facility] MCV 97.7 80.7 - 98.3 fL 03/28/2022 11:29 AM [facility] MCH 32.2 26.7 - 34.0 pg 03/28/2022 11:29 AM [facility] MCHC 32.9 30.8 - 35.9 g/dL 03/28/2022 11:29 AM [facility] RDW-SD 51.1(H) 36.0 - 50.0 fL 03/28/2022 11:29 AM CDT [facility] RDW-CV 14.4 11.2 - 14.8 % 03/28/2022 11:29 AM CDT [facility] Platelet Count 251 150 - 400 10? 3 /uL 03/28/2022 11:29 AM CDT [facility] MPV 11.1 9.4 - 12.9 fL 03/28/2022 11:29 AM CDT [facility] nRBC Absolute 0.00 0 10? 3 /uL 03/28/2022 11:29 AM CDT [facility] nRBC Auto 0.0 0 /100 WBC 03/28/2022 11:29 AM CDT [facility] Blood BLOOD SPECIMEN / Unknown Lab Venipuncture / Unknown 03/28/2022 11:05 AM CDT 03/28/2022 11:15 AM CDT Petra Fuentes MD LAB - HEMATOLOGY ORD ERABLES [address] [address], [place] [phone] * (ABNORMAL) GLUCOSE - POINT OF CARE (03/28/2022 7:35 AM CDT) [facility] Glucose WB/POC 118(H) 70 - 115 mg/dL 03/28/2022 7:40 AM CDT [facility] Specimen Type Cap Fingerstick 2021 7:40 AM CDT [facility] Blood BLOOD SPECIMEN / Unknown 03/28/2022 7:35 AM CDT 03/28/2022 7:40 AM CDT Artur Mcgrwa MD LAB - POINT OF CARE ORDERABLES [address] [address], [place] [phone] * (ABNORMAL) GLUCOSE - POINT OF CARE (03/27/2022 11:39 AM CDT) [facility] Glucose WB/POC 126(H) 70 - 115 mg/dL 03/27/2022 11:44 AM CDT [facility] Specimen Type Cap Fingerstick 2021 11:44 AM CDT [facility] Blood BLOOD SPECIMEN / Unknown 03/27/2022 11:39 AM CDT 03/27/2022 11:44 AM CDT Artur Mcgraw MD LAB - POINT OF CARE ORDERABLES [facility] [address] [place] [address], [place] [phone] * GLUCOSE - POINT OF CARE (03/27/2022 8:43 AM CDT) [facility] Glucose WB/POC 112 70 - 115 mg/dL 03/27/2022 8:48 AM CDT [facility] Specimen Type Cap Fingerstick 2021 8:48 AM CDT [facility] Blood BLOOD SPECIMEN / Unknown 03/27/2022 8:43 AM CDT 03/27/2022 8:48 AM CDT Artur Mcgraw MD LAB - POINT OF CARE ORDERABLES [facility] [address] [place] [address], [place] [phone] * (ABNORMAL) BASIC METABOLIC PANEL (CALCIUM TOTAL) (03/27/2022 3:29 AM CDT) [facility] BUN 8 7 - 26 mg/dL 03/27/2022 4:14 AM CDT [facility] Creatinine 0.47(L) 0.71 - 1.16 mg/dL 03/27/2022 4:14 AM CDT [facility] Sodium 137 136 - 145 mmol/L 03/27/2022 4:14 AM CDT [facility] Potassium 4.0 3.5 - 4.5 mmol/L 03/27/2022 4:14 AM CDT [facility] Chloride 104 98 - 107 mmol/L 03/27/2022 4:14 AM [facility] CO2 24 22 - 29 mmol/L 03/27/2022 4:14 AM [facility] Glucose 109 70 - 115 mg/dL 03/27/2022 4:14 AM [facility] Calcium 9.4 8.4 - 10.2 mg/dL 03/27/2022 4:14 AM [facility] Anion Gap 13 8 - 18 03/27/2022 4:14 AM [facility] BUN/Creatinine Ratio 17 7 - 23 03/27/2022 4:14 AM [facility] Osmolality Calculated 283 270 - 300 mOsm/kg 03/27/2022 4:14 AM [facility] eGFR by CKD-EPI >90 >=90 mL/min/1.7 3 m2 03/27/2022 4:14 AM [facility] Blood BLOOD SPECIMEN / Unknown Lab Venipuncture / Unknown 03/27/2022 3:29 AM CDT 03/27/2022 3:43 AM T Petra Fuentes MD LAB - CHEMISTRY MARSHAL MEDEROS [facility] Organization Address City/State/ZIP Co de Phone Number [facility] [address] [place] [phone], [facility] [phone] * (ABNORMAL) CBC W/O DIFFERENTIAL (03/27/2022 3:29 AM CDT) WBC 9.3 3.5 - 10.5 10? 3 /uL 03/27/2022 3:51 AM [facility] RBC 3.40(L) 4.30 - 5.70 10? 6 /uL 03/27/2022 3:51 AM [facility] Hemoglobin 11.0(L) 12.0 - 17.6 g/dL 03/27/2022 3:51 AM [facility] Hematocrit 33.2(L) 35.2 - 51.7 % 03/27/2022 3:51 AM [facility] MCV 97.6 80.7 - 98.3 fL 03/27/2022 3:51 AM [facility] MCH 32.4 26.7 - 34.0 pg 03/27/2022 3:51 AM CDT [facility] MCHC 33.1 30.8 - 35.9 g/dL 03/27/2022 3:51 AM T [facility] RDW-SD 50.8(H) 36.0 - 50.0 fL 03/27/2022 3:51 AM T [facility] RDW-CV 14.3 11.2 - 14.8 % 03/27/2022 3:51 AM T [facility] Platelet Count 252 150 - 400 10? 3 /uL 03/27/2022 3:51 AM T [facility] MPV 11.0 9.4 - 12.9 fL 03/27/2022 3:51 AM T [facility] nRBC Absolute 0.00 0 10? 3 /uL 03/27/2022 3:51 AM T [facility] nRBC Auto 0.0 0 /100 WBC 03/27/2022 3:51 AM T [facility] Blood BLOOD SPECIMEN / Unknown Lab Venipuncture / Unknown 03/27/2022 3:29 AM CDT 03/27/2022 3:44 AM CDT Petra Fuentes MD LAB - HEMATOLOGY ORD ERABLES [address] [address], [facility] [phone] * GLUCOSE - POINT OF CARE (03/26/2022 5:47 PM CDT) Glucose WB/POC 93 70 - 115 mg/dL 03/26/2022 5:52 PM CDT [facility] Specimen Type Cap Fingerstick 2021 5:52 PM CDT [facility] Blood BLOOD SPECIMEN / Unknown 03/26/2022 5:47 PM CDT 03/26/2022 5:52 PM CDT Artur Mcgraw MD LAB - POINT OF CARE ORDERABLES [address] [place] [address], [place] [phone] * GLUCOSE - POINT OF CARE (03/26/2022 11:59 AM CDT) Glucose WB/POC 92 70 - 115 mg/dL 03/26/2022 12:03 PM CDT [facility] Specimen Type Cap Fingerstick 2021 12:03 PM CDT [facility] Blood BLOOD SPECIMEN / Unknown 03/26/2022 11:59 AM CDT 03/26/2022 12:03 PM CDT Artur Mcgraw MD LAB - POINT OF CARE ORDERABLES [id number] [place] [address], [place] [phone] * GLUCOSE - POINT OF CARE (03/26/2022 8:45 AM CDT) [facility] Glucose WB/POC 91 70 - 115 mg/dL 03/26/2022 12:03 PM CDT [facility] Specimen Type Cap Fingerstick 2021 12:03 PM CDT [facility] Blood BLOOD SPECIMEN / Unknown 03/26/2022 8:45 AM CDT 03/26/2022 12:03 PM CDT Artur Mcgraw MD LAB - POINT OF CARE ORDERABLES [facility] [address] [place] [phone], [place] [phone] * (ABNORMAL) BASIC METABOLIC PANEL (CALCIUM TOTAL) (03/26/2022 7:25 AM CDT) BUN 8 7 - 26 mg/dL 03/26/2022 8:23 AM CDT [facility] Creatinine 0.46(L) 0.71 - 1.16 mg/dL 03/26/2022 8:23 AM CDT [facility] Sodium 138 136 - 145 mmol/L 03/26/2022 8:23 AM [facility] Potassium 4.3 3.5 - 4.5 mmol/L 03/26/2022 8:23 AM [facility] Chloride 105 98 - 107 mmol/L 03/26/2022 8:23 AM [facility] CO2 23 22 - 29 mmol/L 03/26/2022 8:23 AM [facility] Glucose 97 70 - 115 mg/dL 03/26/2022 8:23 AM [facility] Calcium 9.3 8.4 - 10.2 mg/dL 03/26/2022 8:23 AM [facility] Anion Gap 14 8 - 18 03/26/2022 8:23 AM [facility] BUN/Creatinine Ratio 17 7 - 23 03/26/2022 8:23 AM [facility] Osmolality Calculated 284 270 - 300 mOsm/kg 03/26/2022 8:23 AM [facility] eGFR by CKD-EPI >90 >=90 mL/min/1.7 3 m2 03/26/2022 8:23 AM [facility] Blood BLOOD SPECIMEN / Unknown Lab Venipuncture / Unknown 03/26/2022 7:25 AM CDT 03/26/2022 7:57 AM T Petra Fuentes MD LAB - CHEMISTRY [facility] Organization Address City/State/ZIP Co de Phone Number [facility] [address] [place] [address], [facility] [phone] * (ABNORMAL) CBC W/O DIFFERENTIAL (03/26/2022 7:25 AM CDT) WBC 9.0 3.5 - 10.5 10? 3 /uL 03/26/2022 8:02 AM [facility] RBC 3.46(L) 4.30 - 5.70 10? 6 /uL 03/26/2022 8:02 AM [facility] Hemoglobin 11.1(L) 12.0 - 17.6 g/dL 03/26/2022 8:02 AM [facility] Hematocrit 33.2(L) 35.2 - 51.7 % 03/26/2022 8:02 AM [facility] MCV 96.0 80.7 - 98.3 fL 03/26/2022 8:02 AM [facility] MCH 32.1 26.7 - 34.0 pg 03/26/2022 8:02 AM [facility] MCHC 33.4 30.8 - 35.9 g/dL 03/26/2022 8:02 AM [facility] RDW-SD 49.4 36.0 - 50.0 fL 03/26/2022 8:02 AM [facility] RDW-CV 14.2 11.2 - 14.8 % 03/26/2022 8:02 AM [facility] Platelet Count 243 150 - 400 10? 3 /uL 03/26/2022 8:02 AM [facility] MPV 11.3 9.4 - 12.9 fL 03/26/2022 8:02 AM [facility] nRBC Absolute 0.00 0 10? 3 /uL 03/26/2022 8:02 AM [facility] nRBC Auto 0.0 0 /100 WBC 03/26/2022 8:02 AM [facility] Blood BLOOD SPECIMEN / Unknown Lab Venipuncture / Unknown 03/26/2022 7:25 AM CDT 03/26/2022 7:57 AM CDT Petra Fuentes MD LAB - HEMATOLOGY ORD ERABLES Performing Organization Address City/State/[facility] Co de Phone Number [facility] [address] [place] [phone], [facility] [phone] * EGD (03/25/2022 4:19 PM CDT) Report Endoscopy POC Endoscopy Department Report _ Patient Name: Mojgan Tabor ?Procedure Date: 03/25/2022 4:19 PM ? Date of : 1960 Classification: Inpatient ? Gender: Male Ethnicity: Not or ? Race: Black or _ Providers: ?Tiffani Castillo MD, Joylnn Ann (Fellow) Referring : ? Procedure: ?Upper GI endoscopy Indications: ?Dysphagia [...] and ?oxygen saturations were monitored continuously. The ?[id number] was introduced through the mouth, and ?advanced [...] Procedure Code(s): ? --- Professional --- ? 77186, Esophagogastroduoden oscopy, flexible, transoral; with directed ? placement of percutaneous gastrostomy tube Diagnosis Code(s): ?--- Professional --- ?K31.89, Other diseases of stomach and duodenum ?R13.10, Dysphagia, unspecified CPT copyright 2019 [employer]. All rights reserved. The codes documented in this report are preliminary and upon negative retoucher review may be revised to meet current compliance requirements. __ Tiffani Castillo MD 03/25/2022 5:11:23 PM Note Initiated On: 03/25/2022 4:19 PM Number of Addenda: 0 ? [facility] ? [address] [place] [address] [facility] [employer] 03/25/2022 4:19 PM CDT Artur Mcgraw MD GI PROCEDURE ORDERA BLES Performing Organization Address [facility]/ZIP Co de Phone Number [facility] * (ABNORMAL) GLUCOSE - POINT OF CARE (03/25/2022 11:11 AM CDT) Glucose WB/POC 125(H) 70 - 115 mg/dL 03/25/2022 11:17 AM CDT [facility] Specimen Type Cap Fingerstick 2021 11:17 AM CDT [facility] Blood BLOOD SPECIMEN / Unknown 03/25/2022 11:11 AM CDT 03/25/2022 11:17 AM CDT Artur Mcgraw MD LAB - POINT OF CARE ORDERABLES Performing Organization Address [facility]/ZIP Co de Phone Number [address] [address], [place] [phone] * (ABNORMAL) GLUCOSE - POINT OF CARE (03/25/2022 8:12 AM CDT) Glucose WB/POC 125(H) 70 - 115 mg/dL 03/25/2022 8:13 AM CDT [facility] Specimen Type Cap Fingerstick 2021 8:13 AM CDT [facility] Blood BLOOD SPECIMEN / Unknown 03/25/2022 8:12 AM CDT 03/25/2022 8:13 AM CDT Artur Mcgraw MD LAB - POINT OF CARE ORDERABLES Performing Organization Address [facility]/ZIP Co de Phone Number [address] [address], [place] [phone] * (ABNORMAL) BASIC METABOLIC PANEL (CALCIUM TOTAL) (03/25/2022 3:51 AM CDT) Pathologist [facility] BUN 14 7 - 26 mg/dL 03/25/2022 5:23 AM [facility] Creatinine 0.45(L) 0.71 - 1.16 mg/dL 03/25/2022 5:23 AM [facility] Sodium 141 136 - 145 mmol/L 03/25/2022 5:23 AM [facility] Potassium 4.1 3.5 - 4.5 mmol/L 03/25/2022 5:23 AM [facility] Chloride 108(H) 98 - 107 mmol/L 03/25/2022 5:23 AM [facility] CO2 24 22 - 29 mmol/L 03/25/2022 5:23 AM [facility] Glucose 108 70 - 115 mg/dL 03/25/2022 5:23 AM [facility] Calcium 8.9 8.4 - 10.2 mg/dL 03/25/2022 5:23 AM [facility] Anion Gap 13 8 - 18 03/25/2022 5:23 AM [facility] BUN/Creatinine Ratio 31(H) 7 - 23 03/25/2022 5:23 AM [facility] Osmolality Calculated 293 270 - 300 mOsm/kg 03/25/2022 5:23 AM [facility] eGFR by CKD-EPI >90 >=90 mL/min/1.7 3 m2 03/25/2022 5:23 AM [facility] Blood BLOOD SPECIMEN / Unknown Lab Venipuncture / Unknown 03/25/2022 3:51 AM CDT 03/25/2022 4:50 AM CDT Petra Fuentes MD LAB - CHEMISTRY [facility]SH[facility] Organization Address City/State/ZIP Co de Phone Number [facility] [address] [place] [phone], [facility] [phone] * (ABNORMAL) CBC W/O DIFFERENTIAL (03/25/2022 3:51 AM CDT) WBC 9.4 3.5 - 10.5 10? 3 /uL 03/25/2022 5:01 AM [facility] RBC 3.32(L) 4.30 - 5.70 10? 6 /uL 03/25/2022 5:01 AM [facility] Hemoglobin 10.6(L) 12.0 - 17.6 g/dL 03/25/2022 5:01 AM [facility] Hematocrit 32.0(L) 35.2 - 51.7 % 03/25/2022 5:01 AM [facility] MCV 96.4 80.7 - 98.3 fL 03/25/2022 5:01 AM [facility] MCH 31.9 26.7 - 34.0 pg 03/25/2022 5:01 AM [facility] MCHC 33.1 30.8 - 35.9 g/dL 03/25/2022 5:01 AM [facility] Platelet Count 262 150 - 400 10? 3 /uL 03/25/2022 5:01 AM [facility] RDW-SD 48.5 36.0 - 50.0 fL 03/25/2022 5:01 AM [facility] RDW-CV 13.9 11.2 - 14.8 % 03/25/2022 5:01 AM [facility] MPV 11.4 9.4 - 12.9 fL 03/25/2022 5:01 AM [facility] nRBC Absolute 0.00 0 10? 3 /uL 03/25/2022 5:01 AM [facility] nRBC Auto 0.0 0 /100 WBC 03/25/2022 5:01 AM [facility] Blood BLOOD SPECIMEN / Unknown Lab Venipuncture / Unknown 03/25/2022 3:51 AM CDT 03/25/2022 4:50 AM T Petra Fuentes MD LAB - HEMATOLOGY ORD ERABLES [facility] [address] [place] [phone], [facility] [phone] * GLUCOSE - POINT OF CARE (03/24/2022 4:28 PM CDT) Glucose WB/POC 90 70 - 115 mg/dL 03/24/2022 4:30 PM CDT [facility] Specimen Type Arterial 03/24/2022 4:30 PM CDT [facility] Blood BLOOD SPECIMEN / Unknown 03/24/2022 4:28 PM CDT 03/24/2022 4:30 PM CDT Artur Mcgraw MD LAB - POINT OF CARE ORDERABLES [address] [address], [place] [phone] * (ABNORMAL) GLUCOSE - POINT OF CARE (03/24/2022 12:01 PM CDT) Glucose WB/POC 123(H) 70 - 115 mg/dL 03/24/2022 12:02 PM CDT [facility] Specimen Type Arterial 03/24/2022 12:02 PM CDT [facility] Blood BLOOD SPECIMEN / Unknown 03/24/2022 12:01 PM CDT 03/24/2022 12:02 PM CDT Artur Mcgraw MD LAB - POINT OF CARE ORDERABLES [address] [address], [place] [phone] * GLUCOSE - POINT OF CARE (03/24/2022 8:25 AM CDT) Glucose WB/POC 90 70 - 115 mg/dL 03/24/2022 8:26 AM CDT [facility] Specimen Type Arterial 03/24/2022 8:26 AM CDT [facility] Blood BLOOD SPECIMEN / Unknown 03/24/2022 8:25 AM CDT 03/24/2022 8:26 AM CDT Artur Mcgraw MD LAB - POINT OF CARE ORDERABLES [address] [place] [address], [facility] [phone] * (ABNORMAL) BASIC METABOLIC PANEL (CALCIUM TOTAL) (03/24/2022 2:58 AM CDT) BUN 12 7 - 26 mg/dL 03/24/2022 5:13 AM [facility] Creatinine 0.48(L) 0.71 - 1.16 mg/dL 03/24/2022 5:13 AM [facility] Sodium 143 136 - 145 mmol/L 03/24/2022 5:13 AM [facility] Potassium 3.9 3.5 - 4.5 mmol/L 03/24/2022 5:13 AM [facility] Chloride 107 98 - 107 mmol/L 03/24/2022 5:13 AM [facility] CO2 23 22 - 29 mmol/L 03/24/2022 5:13 AM [facility] Glucose 103 70 - 115 mg/dL 03/24/2022 5:13 AM [facility] Calcium 9.1 8.4 - 10.2 mg/dL 03/24/2022 5:13 AM [facility] Anion Gap 17 8 - 18 03/24/2022 5:13 AM [facility] BUN/Creatinine Ratio 25(H) 7 - 23 03/24/2022 5:13 AM [facility] Osmolality Calculated 296 270 - 300 mOsm/kg 03/24/2022 5:13 AM [facility] eGFR by CKD-EPI >90 >=90 mL/min/1.7 3 m2 03/24/2022 5:13 AM [facility] Blood BLOOD SPECIMEN / Unknown Lab Venipuncture / Unknown 03/24/2022 2:58 AM CDT 03/24/2022 4:42 AM T Petra Fuentes MD LAB - CHEMISTRY MARSHAL MEDEROS [facility] Organization Address City/State/ZIP Co de Phone Number [address] [address], [facility] [phone] * (ABNORMAL) CBC W/O DIFFERENTIAL (03/24/2022 2:58 AM CDT) WBC 11.0(H) 3.5 - 10.5 10? 3 /uL 03/24/2022 5:02 AM [facility] RBC 3.44(L) 4.30 - 5.70 10? 6 /uL 03/24/2022 5:02 AM [facility] Hemoglobin 10.9(L) 12.0 - 17.6 g/dL 03/24/2022 5:02 AM [facility] Hematocrit 33.0(L) 35.2 - 51.7 % 03/24/2022 5:02 AM [facility] MCV 95.9 80.7 - 98.3 fL 03/24/2022 5:02 AM [facility] MCH 31.7 26.7 - 34.0 pg 03/24/2022 5:02 AM [facility] MCHC 33.0 30.8 - 35.9 g/dL 03/24/2022 5:02 AM [facility] Platelet Count 195 150 - 400 10? 3 /uL 03/24/2022 5:02 AM [facility] RDW-SD 47.2 36.0 - 50.0 fL 03/24/2022 5:02 AM [facility] RDW-CV 13.9 11.2 - 14.8 % 03/24/2022 5:02 AM [facility] MPV 12.0 9.4 - 12.9 fL 03/24/2022 5:02 AM [facility] nRBC Absolute 0.00 0 10? 3 /uL 03/24/2022 5:02 AM [facility] nRBC Auto 0.0 0 /100 WBC 03/24/2022 5:02 AM [facility] Blood BLOOD SPECIMEN / Unknown Lab Venipuncture / Unknown 03/24/2022 2:58 AM CDT 03/24/2022 4:42 AM CDT Petra Fuentes MD LAB - HEMATOLOGY ORD ERABLES [address] [address], [place] [phone] * PHOSPHORUS BLOOD (03/24/2022 2:58 AM CDT) Phosphorus 3.1 2.8 - 5.1 mg/dL 03/24/2022 5:13 AM CDT [facility] Blood BLOOD SPECIMEN / Unknown Lab Venipuncture / Unknown 03/24/2022 2:58 AM CDT 03/24/2022 4:42 AM CDT Artur Mcgraw MD LAB - CHEMISTRY ORD ERABLES [address] [address], [place] [phone] * MAGNESIUM BLOOD (03/24/2022 2:58 AM CDT) Magnesium 1.6 1.6 - 2.6 mg/dL 03/24/2022 5:13 AM CDT [facility] Blood BLOOD SPECIMEN / Unknown Lab Venipuncture / Unknown 03/24/2022 2:58 AM CDT 03/24/2022 4:42 AM CDT Artur Mcgraw MD LAB - CHEMISTRY ORD ERABLES [address] [address], [place] [phone] * (ABNORMAL) GLUCOSE - POINT OF CARE (03/23/2022 4:20 PM CDT) Glucose WB/POC 125(H) 70 - 115 mg/dL 03/23/2022 4:21 PM CDT [facility] Specimen Type Arterial 03/23/2022 4:21 PM CDT [facility] Blood BLOOD SPECIMEN / Unknown 03/23/2022 4:20 PM CDT 03/23/2022 4:21 PM CDT Artur Mcgraw MD LAB - POINT OF CARE ORDERABLES [facility] [address] [place] [address], [facility] [phone] * (ABNORMAL) BASIC METABOLIC PANEL (CALCIUM TOTAL) (03/23/2022 3:39 AM CDT) BUN 9 7 - 26 mg/dL 03/23/2022 4:26 AM [facility] Creatinine 0.51(L) 0.71 - 1.16 mg/dL 03/23/2022 4:26 AM [facility] Sodium 140 136 - 145 mmol/L 03/23/2022 4:26 AM [facility] Potassium 3.7 3.5 - 4.5 mmol/L 03/23/2022 4:26 AM [facility] Chloride 106 98 - 107 mmol/L 03/23/2022 4:26 AM [facility] CO2 24 22 - 29 mmol/L 03/23/2022 4:26 AM [facility] Glucose 114 70 - 115 mg/dL 03/23/2022 4:26 AM [facility] Calcium 8.9 8.4 - 10.2 mg/dL 03/23/2022 4:26 AM [facility] Anion Gap 14 8 - 18 03/23/2022 4:26 AM [facility] BUN/Creatinine Ratio 18 7 - 23 03/23/2022 4:26 AM [facility] Osmolality Calculated 290 270 - 300 mOsm/kg 03/23/2022 4:26 AM [facility] eGFR by CKD-EPI >90 >=90 mL/min/1.7 3 m2 03/23/2022 4:26 AM [facility] Blood BLOOD SPECIMEN / Unknown Lab Venipuncture / Unknown 03/23/2022 3:39 AM CDT 03/23/2022 3:57 AM T Petra Fuentes MD LAB - CHEMISTRY MARSHAL MEDEROS [facility] [address] [place] [address], [place] [phone] * (ABNORMAL) CBC W/O DIFFERENTIAL (03/23/2022 3:39 AM CDT) WBC 9.3 3.5 - 10.5 10? 3 /uL 03/23/2022 4:10 AM [facility] RBC 3.22(L) 4.30 - 5.70 10? 6 /uL 03/23/2022 4:10 AM [facility] Hemoglobin 10.2(L) 12.0 - 17.6 g/dL 03/23/2022 4:10 AM [facility] Hematocrit 31.2(L) 35.2 - 51.7 % 03/23/2022 4:10 AM [facility] MCV 96.9 80.7 - 98.3 fL 03/23/2022 4:10 AM [facility] MCH 31.7 26.7 - 34.0 pg 03/23/2022 4:10 AM [facility] MCHC 32.7 30.8 - 35.9 g/dL 03/23/2022 4:10 AM [facility] Platelet Count 273 150 - 400 10? 3 /uL 03/23/2022 4:10 AM [facility] RDW-SD 48.0 36.0 - 50.0 fL 03/23/2022 4:10 AM [facility] RDW-CV 13.8 11.2 - 14.8 % 03/23/2022 4:10 AM [facility] MPV 10.9 9.4 - 12.9 fL 03/23/2022 4:10 AM [facility] nRBC Absolute 0.00 0 10? 3 /uL 03/23/2022 4:10 AM [facility] nRBC Auto 0.0 0 /100 WBC 03/23/2022 4:10 AM [facility] Blood BLOOD SPECIMEN / Unknown Lab Venipuncture / Unknown 03/23/2022 3:39 AM CDT 03/23/2022 3:57 AM CDT Petra Fuentes MD LAB - HEMATOLOGY ORD ERABLES [facility] [address] [place] [phone], [facility] [phone] * GLUCOSE - POINT OF CARE (03/22/2022 5:05 PM CDT) Glucose WB/POC 108 70 - 115 mg/dL 03/22/2022 5:06 PM CDT [facility] Specimen Type Arterial 03/22/2022 5:06 PM CDT [facility] Blood BLOOD SPECIMEN / Unknown 03/22/2022 5:05 PM CDT 03/22/2022 5:06 PM CDT Petra Fuentes MD LAB - POINT OF CARE ORDERABLES Performing Organization Address [facility] Co de Phone Number [address] [address], [facility] [phone] * FL SWALLOWING FUNCTION STUDY (03/22/2022 2:20 PM CDT) Anatomical Region Laterality Modality Chest Radiographic Cynthia ging 03/22/2022 3:11 PM CDT Impressions 03/22/2022 3:55 PM CDT IMPRESSION: Modified barium swallow fluoroscopy as described. Please see detailed report from speech pathology staff. IAshwin MD have personally reviewed and interpreted this examination/study. > Interpreting Provider: Ashwin Read MD on 03/22/2022 3:55 PM Narrative 03/22/2022 3:55 PM CDT PROCEDURE: ??FL SWALLOWING FUNCTION STUDY, DATE/TIME OF EXAM: ??03/22/2022 2:24 PM, LOCATION ??[facility] INDICATION: A41.9: Sepsis without acute organ dysfunction, due to unspecified organism (CMS/HCC) ADDITIONAL CLINICAL INFORMATION: Ordering Provider Reason For Exam: ??dysphagia COMPARISON: None. TECHNIQUE: Modified barium swallow fluoroscopy performed in conjunction with speech pathology staff. The speech pathologist administered varying thickness barium liquids and solids under direct Cine fluoroscopy. FINDINGS: Fluoroscopy provided for the purpose of speech pathology swallowing study. Please see speech pathology report for details. FLUOROSCOPY DOSE: ??3.37 mGy Reference air kerma (ka,r). FLUOROSCOPY TIME: ??1.85 minutes Procedure Note Dianne Read MD - 03/22/2022 PROCEDURE: FL SWALLOWING FUNCTION STUDY, DATE/TIME OF EXAM: 03/22/2022 2:24 PM, LOCATION [facility] INDICATION: A41.9: Sepsis without acute organ dysfunction, due to unspecifiedorganism (CMS/HCC) ADDITIONAL CLINICAL INFORMATION: Ordering Provider Reason For Exam: dysphagia COMPARISON: None. TECHNIQUE: Modified barium swallow fluoroscopy performed in conjunction with speech pathology staff. The speech pathologist administered varying thickness barium liquids and solids under direct Cine fluoroscopy. FINDINGS: Fluoroscopy provided for the purpose of speech pathology swallowingstudy. Please see speech pathology report for details. FLUOROSCOPY DOSE: 3.37 mGy Reference air kerma (brett centeno). FLUOROSCOPY TIME: 1.85 minutes IMPRESSION: Modified barium swallow fluoroscopy as described. Please see detailed report from speech pathology staff. Ashwin Thomason MD have personally reviewed and interpreted this examination/study. > Interpreting Provider: Ashwin Read MD on 03/22/2022 3:55 PM Petra Fuentes MD FLUOROSCOPY ORDERABL ES * (ABNORMAL) BASIC METABOLIC PANEL (CALCIUM TOTAL) (03/22/2022 3:51 AM CDT) BUN 5(L) 7 - 26 mg/dL 03/22/2022 5:32 AM [facility] Creatinine 0.49(L) 0.71 - 1.16 mg/dL 03/22/2022 5:32 AM [facility] Sodium 141 136 - 145 mmol/L 03/22/2022 5:32 AM [facility] Potassium 3.7 3.5 - 4.5 mmol/L 03/22/2022 5:32 AM [facility] Chloride 106 98 - 107 mmol/L 03/22/2022 5:32 AM [facility] CO2 28 22 - 29 mmol/L 03/22/2022 5:32 AM [facility] Glucose 91 70 - 115 mg/dL 03/22/2022 5:32 AM [facility] Calcium 8.9 8.4 - 10.2 mg/dL 03/22/2022 5:32 AM [facility] Anion Gap 11 8 - 18 03/22/2022 5:32 AM [facility] BUN/Creatinine Ratio 10 7 - 23 03/22/2022 5:32 AM [facility] Osmolality Calculated 289 270 - 300 mOsm/kg 03/22/2022 5:32 AM [facility] eGFR by CKD-EPI >90 >=90 mL/min/1.7 3 m2 03/22/2022 5:32 AM T [facility] Blood BLOOD SPECIMEN / Unknown Lab Venipuncture / Unknown 03/22/2022 3:51 AM CDT 03/22/2022 4:39 AM CDT Petra Fuentes MD LAB - CHEMISTRY [facility] Organization Address City/State/ZIP Co de Phone Number [facility] [address] [place] [id number], [facility] [phone] * (ABNORMAL) CBC W/O DIFFERENTIAL (03/22/2022 3:51 AM CDT) WBC 11.4(H) 3.5 - 10.5 10? 3 /uL 03/22/2022 4:50 AM [facility] RBC 3.46(L) 4.30 - 5.70 10? 6 /uL 03/22/2022 4:50 AM [facility] Hemoglobin 11.1(L) 12.0 - 17.6 g/dL 03/22/2022 4:50 AM [facility] Hematocrit 33.6(L) 35.2 - 51.7 % 03/22/2022 4:50 AM [facility] MCV 97.1 80.7 - 98.3 fL 03/22/2022 4:50 AM [facility] MCH 32.1 26.7 - 34.0 pg 03/22/2022 4:50 AM [facility] MCHC 33.0 30.8 - 35.9 g/dL 03/22/2022 4:50 AM [facility] Platelet Count 296 150 - 400 10? 3 /uL 03/22/2022 4:50 AM CDT [facility] RDW-SD 46.7 36.0 - 50.0 fL 03/22/2022 4:50 AM CDT [facility] RDW-CV 13.5 11.2 - 14.8 % 03/22/2022 4:50 AM CDT [facility] MPV 10.9 9.4 - 12.9 fL 03/22/2022 4:50 AM CDT [facility] nRBC Absolute 0.00 0 10? 3 /uL 03/22/2022 4:50 AM CDT [facility] nRBC Auto 0.0 0 /100 WBC 03/22/2022 4:50 AM CDT [facility] Blood BLOOD SPECIMEN / Unknown Lab Venipuncture / Unknown 03/22/2022 3:51 AM CDT 03/22/2022 4:39 AM CDT Petra Fuentes MD LAB - HEMATOLOGY ORD ERABLES Performing Organization Address City/[facility]/ZIP Co de Phone Number [address] [address], [place] [phone] * GLUCOSE - POINT OF CARE (03/21/2022 8:39 AM CDT) Pathologist [facility] Glucose WB/POC 109 70 - 115 mg/dL 03/21/2022 8:43 AM CDT [facility] Specimen Type Cap Fingerstick 2021 8:43 AM CDT [facility] Blood BLOOD SPECIMEN / Unknown 03/21/2022 8:39 AM CDT 03/21/2022 8:43 AM CDT Petra Fuentes MD LAB - POINT OF CARE ORDERABLES [address] [address], [place] [phone] * (ABNORMAL) BASIC METABOLIC PANEL (CALCIUM TOTAL) (03/21/2022 2:19 AM CDT) BUN 6(L) 7 - 26 mg/dL 03/21/2022 3:57 AM [facility] Creatinine 0.51(L) 0.71 - 1.16 mg/dL 03/21/2022 3:57 AM [facility] Sodium 144 136 - 145 mmol/L 03/21/2022 3:57 AM [facility] Potassium 3.8 3.5 - 4.5 mmol/L 03/21/2022 3:57 AM [facility] Chloride 110(H) 98 - 107 mmol/L 03/21/2022 3:57 AM [facility] CO2 28 22 - 29 mmol/L 03/21/2022 3:57 AM [facility] Glucose 93 70 - 115 mg/dL 03/21/2022 3:57 AM [facility] Calcium 8.7 8.4 - 10.2 mg/dL 03/21/2022 3:57 AM [facility] Anion Gap 10 8 - 18 03/21/2022 3:57 AM [facility] BUN/Creatinine Ratio 12 - 03/21/2022 3:57 AM [facility] Osmolality Calculated 295 270 - 300 mOsm/kg 03/21/2022 3:57 AM [facility] eGFR by CKD-EPI >90 >=90 mL/min/1.7 3 m2 03/21/2022 3:57 AM [facility] Blood BLOOD SPECIMEN / Unknown Lab Venipuncture / Unknown 03/21/2022 2:19 AM CDT 03/21/2022 3:25 AM T Petra Fuentes MD LAB - CHEMISTRY ORDE GATITO [facility] Organization Address City/State/ZIP Co de Phone Number [facility] [address] [place] [address], [facility] [phone] * (ABNORMAL) CBC W/O DIFFERENTIAL (03/21/2022 2:19 AM CDT) WBC 9.5 3.5 - 10.5 10? 3 /uL 03/21/2022 3:40 AM [facility] RBC 3.31(L) 4.30 - 5.70 10? 6 /uL 03/21/2022 3:40 AM [facility] Hemoglobin 10.4(L) 12.0 - 17.6 g/dL 03/21/2022 3:40 AM [facility] Hematocrit 31.7(L) 35.2 - 51.7 % 03/21/2022 3:40 AM [facility] MCV 95.8 80.7 - 98.3 fL 03/21/2022 3:40 AM [facility] MCH 31.4 26.7 - 34.0 pg 03/21/2022 3:40 AM [facility] MCHC 32.8 30.8 - 35.9 g/dL 03/21/2022 3:40 AM [facility] Platelet Count 292 150 - 400 10? 3 /uL 03/21/2022 3:40 AM [facility] RDW-SD 46.2 36.0 - 50.0 fL 03/21/2022 3:40 AM [facility] RDW-CV 13.3 11.2 - 14.8 % 03/21/2022 3:40 AM [facility] MPV 11.0 9.4 - 12.9 fL 03/21/2022 3:40 AM [facility] nRBC Absolute 0.00 0 10? 3 /uL 03/21/2022 3:40 AM [facility] nRBC Auto 0.0 0 /100 WBC 03/21/2022 3:40 AM [facility] Blood BLOOD SPECIMEN / Unknown Lab Venipuncture / Unknown 03/21/2022 2:19 AM CDT 03/21/2022 3:25 AM CDT Petra Fuentes MD LAB - HEMATOLOGY ORD ERABLES [facility] [address] [place] [phone], [facility] [phone] * (ABNORMAL) BASIC METABOLIC PANEL (CALCIUM TOTAL) (03/20/2022 3:30 AM CDT) BUN 10 7 - 26 mg/dL 03/20/2022 5:02 AM [facility] Creatinine 0.51(L) 0.71 - 1.16 mg/dL 03/20/2022 5:02 AM [facility] Sodium 141 136 - 145 mmol/L 03/20/2022 5:02 AM [facility] Potassium 3.6 3.5 - 4.5 mmol/L 03/20/2022 5:02 AM [facility] Chloride 109(H) 98 - 107 mmol/L 03/20/2022 5:02 AM [facility] CO2 27 22 - 29 mmol/L 03/20/2022 5:02 AM [facility] Glucose 90 70 - 115 mg/dL 03/20/2022 5:02 AM [facility] Calcium 8.7 8.4 - 10.2 mg/dL 03/20/2022 5:02 AM [facility] Anion Gap 9 8 - 18 03/20/2022 5:02 AM [facility] BUN/Creatinine Ratio 20 7 - 23 03/20/2022 5:02 AM [facility] Osmolality Calculated 291 270 - 300 mOsm/kg 03/20/2022 5:02 AM [facility] eGFR by CKD-EPI >90 >=90 mL/min/1.7 3 m2 03/20/2022 5:02 AM [facility] Blood BLOOD SPECIMEN / Unknown Lab Venipuncture / Unknown 03/20/2022 3:30 AM CDT 03/20/2022 4:31 AM T Petra Fuentes MD LAB - CHEMISTRY MARSHAL MEDEROS [facility] Organization Address City/State/ZIP Co de Phone Number [facility] [address] [place] [address], [facility] [phone] * (ABNORMAL) CBC W/O DIFFERENTIAL (03/20/2022 3:30 AM CDT) WBC 12.7(H) 3.5 - 10.5 10? 3 /uL 03/20/2022 4:34 AM [facility] RBC 3.15(L) 4.30 - 5.70 10? 6 /uL 03/20/2022 4:34 AM [facility] Hemoglobin 9.9(L) 12.0 - 17.6 g/dL 03/20/2022 4:34 AM [facility] Hematocrit 30.7(L) 35.2 - 51.7 % 03/20/2022 4:34 AM [facility] MCV 97.5 80.7 - 98.3 fL 03/20/2022 4:34 AM [facility] MCH 31.4 26.7 - 34.0 pg 03/20/2022 4:34 AM [facility] MCHC 32.2 30.8 - 35.9 g/dL 03/20/2022 4:34 AM [facility] Platelet Count 314 150 - 400 10? 3 /uL 03/20/2022 4:34 AM [facility] RDW-SD 47.0 36.0 - 50.0 fL 03/20/2022 4:34 AM [facility] RDW-CV 13.3 11.2 - 14.8 % 03/20/2022 4:34 AM [facility] MPV 11.1 9.4 - 12.9 fL 03/20/2022 4:34 AM [facility] nRBC Absolute 0.00 0 10? 3 /uL 03/20/2022 4:34 AM [facility] nRBC Auto 0.0 0 /100 WBC 03/20/2022 4:34 AM [facility] Blood BLOOD SPECIMEN / Unknown Lab Venipuncture / Unknown 03/20/2022 3:30 AM CDT 03/20/2022 4:25 AM T Petra Fuentes MD LAB - HEMATOLOGY ORD ERABLES [facility] [address] [place] [phone], [facility] [phone] * GLUCOSE - POINT OF CARE (03/19/2022 8:14 PM CDT) [facility] Glucose WB/POC 96 70 - 115 mg/dL 03/19/2022 8:18 PM [facility] Specimen Type Cap Fingerstick 2021 8:18 PM [facility] Blood BLOOD SPECIMEN / Unknown 03/19/2022 8:14 PM CDT 03/19/2022 8:18 PM CDT Petra Fuentes MD LAB - POINT OF CARE ORDERABLES Performing Organization Address City/State/[facility] Co de Phone Number [facility] [address] [place] [address], [facility] [phone] * (ABNORMAL) BASIC METABOLIC PANEL (CALCIUM TOTAL) (03/19/2022 2:03 AM CDT) BUN 9 7 - 26 mg/dL 03/19/2022 2:53 AM [facility] Creatinine 0.56(L) 0.71 - 1.16 mg/dL 03/19/2022 2:53 AM [facility] Sodium 143 136 - 145 mmol/L 03/19/2022 2:53 AM [facility] Potassium 3.8 3.5 - 4.5 mmol/L 03/19/2022 2:53 AM [facility] Chloride 107 98 - 107 mmol/L 03/19/2022 2:53 AM [facility] CO2 27 22 - 29 mmol/L 03/19/2022 2:53 AM [facility] Glucose 95 70 - 115 mg/dL 03/19/2022 2:53 AM [facility] Calcium 8.7 8.4 - 10.2 mg/dL 03/19/2022 2:53 AM [facility] Anion Gap 13 8 - 18 03/19/2022 2:53 AM [facility] BUN/Creatinine Ratio 16 7 - 23 03/19/2022 2:53 AM [facility] Osmolality Calculated 294 270 - 300 mOsm/kg 03/19/2022 2:53 AM [facility] eGFR by CKD-EPI >90 >=90 mL/min/1.7 3 m2 03/19/2022 2:53 AM [facility] Blood BLOOD SPECIMEN / Unknown Lab Venipuncture / Unknown 03/19/2022 2:03 AM CDT 03/19/2022 2:23 AM CDT Petra Fuentes MD LAB - CHEMISTRY MARSHAL MEDEROS [facility] [address] [place] [address], [facility] [phone] * (ABNORMAL) CBC W/O DIFFERENTIAL (03/19/2022 2:03 AM CDT) WBC 9.9 3.5 - 10.5 10? 3 /uL 03/19/2022 2:35 AM T [facility] RBC 3.15(L) 4.30 - 5.70 10? 6 /uL 03/19/2022 2:35 AM [facility] Hemoglobin 9.9(L) 12.0 - 17.6 g/dL 03/19/2022 2:35 AM [facility] Hematocrit 30.4(L) 35.2 - 51.7 % 03/19/2022 2:35 AM [facility] MCV 96.5 80.7 - 98.3 fL 03/19/2022 2:35 AM [facility] MCH 31.4 26.7 - 34.0 pg 03/19/2022 2:35 AM [facility] MCHC 32.6 30.8 - 35.9 g/dL 03/19/2022 2:35 AM [facility] Platelet Count 307 150 - 400 10? 3 /uL 03/19/2022 2:35 AM [facility] RDW-SD 46.5 36.0 - 50.0 fL 03/19/2022 2:35 AM [facility] RDW-CV 13.2 11.2 - 14.8 % 03/19/2022 2:35 AM [facility] MPV 10.6 9.4 - 12.9 fL 03/19/2022 2:35 AM [facility] nRBC Absolute 0.00 0 10? 3 /uL 03/19/2022 2:35 AM [facility] nRBC Auto 0.0 0 /100 WBC 03/19/2022 2:35 AM [facility] Blood BLOOD SPECIMEN / Unknown Lab Venipuncture / Unknown 03/19/2022 2:03 AM CDT 03/19/2022 2:23 AM CDT Petra Fuentes MD LAB - HEMATOLOGY ORD ERABLES [facility] [address] [place] [address], [facility] [phone] * (ABNORMAL) BASIC METABOLIC PANEL (CALCIUM TOTAL) (03/18/2022 6:06 AM CDT) BUN 11 7 - 26 mg/dL 03/18/2022 12:17 PM [facility] Creatinine 0.56(L) 0.71 - 1.16 mg/dL 03/18/2022 12:17 PM [facility] Sodium 140 136 - 145 mmol/L 03/18/2022 12:17 PM [facility] Potassium 4.1 3.5 - 4.5 mmol/L 03/18/2022 12:17 PM [facility] Chloride 107 98 - 107 mmol/L 03/18/2022 12:17 PM [facility] CO2 27 22 - 29 mmol/L 03/18/2022 12:17 PM [facility] Glucose 95 70 - 115 mg/dL 03/18/2022 12:17 PM [facility] Calcium 8.9 8.4 - 10.2 mg/dL 03/18/2022 12:17 PM [facility] Anion Gap 10 8 - 18 03/18/2022 12:17 PM [facility] BUN/Creatinine Ratio 20 7 - 23 03/18/2022 12:17 PM [facility] Osmolality Calculated 289 270 - 300 mOsm/kg 03/18/2022 12:17 PM [facility] eGFR by CKD-EPI >90 >=90 mL/min/1.7 3 m2 03/18/2022 12:17 PM [facility] Blood BLOOD SPECIMEN / Unknown Lab Venipuncture / Unknown 03/18/2022 6:06 AM CDT 03/18/2022 6:13 AM CDT Petra Fuentes MD LAB - CHEMISTRY MARSHAL MEDEROS Performing Organization Address [facility]/ZIP Co de Phone Number [address] [address], [facility] [phone] * (ABNORMAL) VANCOMYCIN LEVEL TROUGH (03/18/2022 6:06 AM CDT) Vancomycin Trough <2.5(L) 10.0 - 20.0 ug/mL 03/18/2022 6:37 AM CDT [facility] Blood BLOOD SPECIMEN / Unknown Lab Venipuncture / Unknown 03/18/2022 6:06 AM CDT 03/18/2022 6:13 AM CDT Narrative [facility] - 03/18/2022 6:37 AM CDT See institution protocol. Blair Mojica MD LAB - CHEMISTRY MARSHAL MEDEROS Performing Organization Address [facility]/ZIP Co de Phone Number [address] [address], [facility] [phone] * CT HEAD WO CONTRAST (03/17/2022 5:32 PM CDT) Anatomical Region Laterality Modality Head Computed Tomogra phy 03/18/2022 7:16 AM CDT Impressions 03/18/2022 10:57 AM CDT IMPRESSION: 1.No acute intracranial hemorrhage, midline shift, or significant mass effect. Report dictated by Akbar Barillas MD, MD (financial institution vice president). I, Wojciech Neil MD have personally reviewed and interpreted this examination/study. > Interpreting Provider: Wojciech Neil MD on 03/18/2022 10:57 AM Narrative 03/18/2022 10:57 AM CDT PROCEDURE: ??CT HEAD WO CONTRAST, DATE/TIME OF EXAM: ??03/17/2022 5:32 PM, LOCATION ??[facility] INDICATION: A41.9: Sepsis without acute organ dysfunction, due to unspecified organism (CMS/HCC) ADDITIONAL CLINICAL INFORMATION: Ordering Provider Reason For Exam: ??Acute on chronic encephalopathy TECHNIQUE: CT of the head was performed without contrast according to standard protocol. COMPARISON: CT head dated 03/11/2022 FINDINGS: Images are degraded due to motion artifacts. Within this limitation: No acute intra- or extra-axial fluid collections are identified. There is moderate cerebral volume loss with associated ex vacuo ventricular dilatation. The basilar cisterns are patent. No mass effect or midline shift is seen. Chronic infarcts redemonstrated in the right occipital lobe, left cerebellum, left basal ganglia and the bilateral thalami. The garber-white matter differentiation otherwise appears normal. Periventricular white matter hypoattenuation is indicative of chronic small vessel ischemic disease. Motion artifact reduces the sensitivity for detection of fractures. Other than an old left lamina papyracea fracture, the orbits appear normal. Opacification of the right maxillary sinus is appreciated however evaluation is severely limited due to motion artifact. The mastoid air cells are clear. No soft tissue abnormality is identified. Procedure Note Wojciech Neil MD - 03/18/2022 PROCEDURE: CT HEAD WO CONTRAST, DATE/TIME OF EXAM: 03/17/2022 5:32 PM, LOCATION [facility] INDICATION: A41.9: Sepsis without acute organ dysfunction, due to unspecifiedorganism (CMS/HCC) ADDITIONAL CLINICAL INFORMATION: Ordering Provider Reason For Exam: Acute on chronic encephalopathy TECHNIQUE: CT of the head was performed without contrast according to standard protocol. COMPARISON: CT head dated 03/11/2022 FINDINGS: Images are degraded due to motion artifacts. Within this limitation: No acute intra- or extra-axial fluid collections are identified. Thereis moderate cerebral volume loss with associated ex vacuo ventricular dilatation. The basilar cisterns are patent. No mass effect or midline shift is seen. Chronic infarcts redemonstrated in the right occipitallobe, left cerebellum, left basal ganglia and the bilateral thalami. The garber-white matter differentiation otherwise appears normal.Periventricular white matter hypoattenuation is indicative of chronic small vesselischemic disease. Motion artifact reduces the sensitivity for detection of fractures. Other than an old left lamina papyracea fracture, the orbits appear normal. Opacification of the right maxillary sinus is appreciated however evaluation is severely limited due to motion artifact. Themastoid air cells are clear. No soft tissue abnormality is identified. IMPRESSION: 1.No acute intracranial hemorrhage, midline shift, or significant mass effect. Report dictated by Akbar Barillas MD, MD (financial institution vice president). Wojciech Thomason MD have personally reviewed and interpretedthis examination/study. > Interpreting Provider: Wojciech Neil MD on 03/18/2022 10:57AM Petra Fuentes MD CT ORDERABLES * XR CHEST 1VW PORTABLE (03/17/2022 3:56 PM CDT) Anatomical Region Laterality Modality Chest Radiographic Cynthia ging 03/17/2022 4:23 PM CDT Narrative 03/17/2022 11:54 PM CDT EXAMINATION: XR CHEST 1VW PORTABLE HISTORY: A41.9: Sepsis without acute organ dysfunction, due to unspecified organism (CMS/HCC) COMPARISON: Chest x-ray from 03/08/2022 FINDINGS/IMPRESSION: Small left effusion mildly increased from prior, with associated atelectasis and/or airspace disease. Small right basilar atelectasis and/or airspace disease is present. No pneumothorax is visible. The cardiomediastinal silhouette is normal. The visible bony thorax is intact. > Dictated by Guilherme Foy MD (financial institution vice president). John Thomason MD have personally reviewed and interpreted this examination/study. > Interpreting Provider: John Graham MD on 03/17/2022 11:54 PM Procedure Note John Graham MD - 03/17/2022 EXAMINATION: XR CHEST 1VW PORTABLE HISTORY: A41.9: Sepsis without acute organ dysfunction, due tounspecified organism (CMS/HCC) COMPARISON: Chest x-ray from 03/08/2022 FINDINGS/IMPRESSION: Small left effusion mildly increased from prior, with associated atelectasis and/or airspace disease. Small right basilar atelectasisand/or airspace disease is present. No pneumothorax is visible. The cardiomediastinal silhouette is normal. The visible bony thorax isintact. > Dictated by Guilherme Foy MD (financial institution vice president). I, John Graham MD have personally reviewed and interpreted this examination/study. > Interpreting Provider: John Graham MD on 03/17/2022 11:54 PM Petra Fuentes MD DIAGNOSTIC IMAGING O RDERABLES * GLUCOSE - POINT OF CARE (03/17/2022 1:45 PM CDT) Glucose WB/POC 108 70 - 115 mg/dL 03/17/2022 1:46 PM CDT [facility] Specimen Type Cap Fingerstick 2021 1:46 PM CDT [facility] Blood BLOOD SPECIMEN / Unknown 03/17/2022 1:45 PM CDT 03/17/2022 1:46 PM CDT Petra Fuentes MD LAB - POINT OF CARE ORDERABLES Performing Organization Address City/State/[facility] Co de Phone Number [address] [address], [facility] [phone] * (ABNORMAL) COMPREHENSIVE METABOLIC PANEL (03/17/2022 11:12 AM CDT) BUN 10 7 - 26 mg/dL 03/17/2022 11:59 AM [facility] Creatinine 0.53(L) 0.71 - 1.16 mg/dL 03/17/2022 11:59 AM [facility] Sodium 140 136 - 145 mmol/L 03/17/2022 11:59 AM [facility] Potassium 3.8 3.5 - 4.5 mmol/L 03/17/2022 11:59 AM [facility] Chloride 106 98 - 107 mmol/L 03/17/2022 11:59 AM [facility] CO2 29 22 - 29 mmol/L 03/17/2022 11:59 AM [facility] Glucose 116(H) 70 - 115 mg/dL 03/17/2022 11:59 AM [facility] Calcium 9.0 8.4 - 10.2 mg/dL 03/17/2022 11:59 AM [facility] Protein Total 6.2 6.0 - 8.3 g/dL 03/17/2022 11:59 AM [facility] Albumin 1.8(L) 3.4 - 5.0 g/dL 03/17/2022 11:59 AM [facility] Bilirubin Total 0.2 0.2 - 1.2 mg/dL 03/17/2022 11:59 AM [facility] Alkaline Phosphatase 73 40 - 150 U/L 03/17/2022 11:59 AM [facility] ALT 21 5 - 55 U/L 03/17/2022 11:59 AM [facility] AST 34 5 - 34 U/L 03/17/2022 11:59 AM [facility] Anion Gap 9 8 - 18 03/17/2022 11:59 AM [facility] BUN/Creatinine Ratio 19 7 - 23 03/17/2022 11:59 AM [facility] Osmolality Calculated 290 270 - 300 mOsm/kg 03/17/2022 11:59 AM [facility] Albumin/Globulin Ratio 0.4(L) 1.1 - 2.3 03/17/2022 11:59 AM [facility] eGFR by CKD-EPI >90 >=90 mL/min/1.7 3 m2 03/17/2022 11:59 AM [facility] Blood BLOOD SPECIMEN / Unknown Lab Venipuncture / Unknown 03/17/2022 11:12 AM CDT 03/17/2022 11:33 AM T Petra Fuentes MD LAB - CHEMISTRY MARSHAL MEDEROS [facility] Organization Address City/State/[facility] Co de Phone Number [facility] [address] [place] [address], [facility] [phone] * (ABNORMAL) CBC W/O DIFFERENTIAL (03/17/2022 11:12 AM CDT) WBC 11.2(H) 3.5 - 10.5 10? 3 /uL 03/17/2022 11:37 AM [facility] RBC 3.35(L) 4.30 - 5.70 10? 6 /uL 03/17/2022 11:37 AM [facility] Hemoglobin 10.7(L) 12.0 - 17.6 g/dL 03/17/2022 11:37 AM [facility] Hematocrit 32.7(L) 35.2 - 51.7 % 03/17/2022 11:37 AM [facility] MCV 97.6 80.7 - 98.3 fL 03/17/2022 11:37 AM [facility] MCH 31.9 26.7 - 34.0 pg 03/17/2022 11:37 AM [facility] MCHC 32.7 30.8 - 35.9 g/dL 03/17/2022 11:37 AM [facility] Platelet Count 344 150 - 400 10? 3 /uL 03/17/2022 11:37 AM [facility] RDW-SD 45.9 36.0 - 50.0 fL 03/17/2022 11:37 AM [facility] RDW-CV 12.9 11.2 - 14.8 % 03/17/2022 11:37 AM [facility] MPV 10.7 9.4 - 12.9 fL 03/17/2022 11:37 AM [facility] nRBC Absolute 0.00 0 10? 3 /uL 03/17/2022 11:37 AM [facility] nRBC Auto 0.0 0 /100 WBC 03/17/2022 11:37 AM [facility] Blood BLOOD SPECIMEN / Unknown Lab Venipuncture / Unknown 03/17/2022 11:12 AM CDT 03/17/2022 11:33 AM CDT Petra Fuentes MD LAB - HEMATOLOGY ORD ERABLES [facility] [address] [place] [phone], [facility] [phone] * (ABNORMAL) LACOSAMIDE (03/17/2022 5:25 AM CDT) Lacosamide 10.6(H) 1.0 - 10.0 ug/mL 03/23/2022 1:14 PM CDT [facility] ([facility]) Comment: INTERPRETIVE INFORMATION: Lacosamide, Serum or Plasma [...] developed and its performance characteristics determined by [facility] [employer]. It has not been cleared or approved by the [place] Food and Drug Administration. This test was performed in a CLIA-certified laboratory and is intended for clinical purposes. Performed By: [place] [address] Product Managent Intern: Power Milian MD, PhD Blood BLOOD SPECIMEN / Unknown Lab Venipuncture / Unknown 03/17/2022 5:25 AM CDT 03/17/2022 5:43 AM CDT Petra Fuentes MD LAB - CHEMISTRY ORDByron MEDEROS Performing Organization Address City/[facility]/ZIP Co de Phone Number [facility]) [address] [place] [address] * GLUCOSE - POINT OF CARE (03/16/2022 10:11 AM CDT) Glucose WB/POC 87 70 - 115 mg/dL 03/16/2022 10:16 AM CDT [facility] Specimen Type Arterial 03/16/2022 10:16 AM CDT [facility] Blood BLOOD SPECIMEN / Unknown 03/16/2022 10:11 AM CDT 03/16/2022 10:16 AM CDT Blair Mojica MD LAB - POINT OF CARE ORDERABLES [facility] [address] [place] [address], [place] [phone] * MAGNESIUM BLOOD (03/16/2022 6:19 AM CDT) Magnesium 1.6 1.6 - 2.6 mg/dL 03/16/2022 6:52 AM [facility] Blood BLOOD SPECIMEN / Unknown Lab Venipuncture / Unknown 03/16/2022 6:19 AM CDT 03/16/2022 6:25 AM T Blair Mojica MD LAB - CHEMISTRY MARSHAL MEDEROS [facility] Organization Address City/State/ZIP Co de Phone Number [facility] [address] [place] [address], [facility] [phone] * (ABNORMAL) RENAL FUNCTION PANEL (03/16/2022 6:19 AM CDT) BUN 12 7 - 26 mg/dL 03/16/2022 6:52 AM [facility] Creatinine 0.69(L) 0.71 - 1.16 mg/dL 03/16/2022 6:52 AM [facility] Sodium 142 136 - 145 mmol/L 03/16/2022 6:52 AM [facility] Potassium 4.2 3.5 - 4.5 mmol/L 03/16/2022 6:52 AM [facility] Chloride 107 98 - 107 mmol/L 03/16/2022 6:52 AM [facility] CO2 29 22 - 29 mmol/L 03/16/2022 6:52 AM [facility] Glucose 85 70 - 115 mg/dL 03/16/2022 6:52 AM [facility] Albumin 1.6(L) 3.4 - 5.0 g/dL 03/16/2022 6:52 AM [facility] Calcium 8.5 8.4 - 10.2 mg/dL 03/16/2022 6:52 AM [facility] Phosphorus 3.2 2.8 - 5.1 mg/dL 03/16/2022 6:52 AM [facility] Anion Gap 10 - 18 03/16/2022 6:52 AM [facility] BUN/Creatinine Ratio 17 7 - 23 03/16/2022 6:52 AM [facility] Osmolality Calculated 293 270 - 300 mOsm/kg 03/16/2022 6:52 AM [facility] eGFR by CKD-EPI >90 >=90 mL/min/1.7 3 m2 03/16/2022 6:52 AM [facility] Blood BLOOD SPECIMEN / Unknown Lab Venipuncture / Unknown 03/16/2022 6:19 AM CDT 03/16/2022 6:25 AM CDT Blair Mojica MD LAB - CHEMISTRY MARSHAL MEDEROS [facility] Organization Address City/State/ZIP Co de Phone Number [facility] [address] [place] [address], [facility] [phone] * (ABNORMAL) CBC W AUTO DIFFERENTIAL (03/16/2022 6:19 AM CDT) WBC 8.9 3.5 - 10.5 10? 3 /uL 03/16/2022 6:31 AM [facility] RBC 3.15(L) 4.30 - 5.70 10? 6 /uL 03/16/2022 6:31 AM [facility] Hemoglobin 10.0(L) 12.0 - 17.6 g/dL 03/16/2022 6:31 AM [facility] Hematocrit 31.0(L) 35.2 - 51.7 % 03/16/2022 6:31 AM [facility] MCV 98.4(H) 80.7 - 98.3 fL 03/16/2022 6:31 AM [facility] MCH 31.7 26.7 - 34.0 pg 03/16/2022 6:31 AM [facility] MCHC 32.3 30.8 - 35.9 g/dL 03/16/2022 6:31 AM [facility] Platelet Count 282 150 - 400 10? 3 /uL 03/16/2022 6:31 AM [facility] RDW-SD 45.4 36.0 - 50.0 fL 03/16/2022 6:31 AM [facility] RDW-CV 12.7 11.2 - 14.8 % 03/16/2022 6:31 AM [facility] MPV 10.8 9.4 - 12.9 fL 03/16/2022 6:31 AM [facility] nRBC Absolute 0.00 0 10? 3 /uL 03/16/2022 6:31 AM [facility] nRBC Auto 0.0 0 /100 WBC 03/16/2022 6:31 AM [facility] Neutrophils % 64.9 35.0 - 70.0 % 03/16/2022 6:31 AM [facility] Lymphocytes % 18.7(L) 20.0 - 43.0 % 03/16/2022 6:31 AM [facility] Monocytes % 11.0 5.0 - 13.0 % 03/16/2022 6:31 AM [facility] Eosinophils % 4.0 0.0 - 6.0 % 03/16/2022 6:31 AM [facility] Basophil % 0.2 0.0 - 2.0 % 03/16/2022 6:31 AM [facility] Neutrophils Absolute 5.76 1.60 - 7.00 10? 3 /uL 03/16/2022 6:31 AM [facility] Lymphocyte Absolute 1.66 1.10 - 3.90 10? 3 /uL 03/16/2022 6:31 AM [facility] Monocytes Absolute 0.98 0.26 - 1.07 10? 3 /uL 03/16/2022 6:31 AM [facility] Eosinophils Absolute 0.36 0.00 - 0.47 10? 3 /uL 03/16/2022 6:31 AM [facility] Basophils Absolute 0.02 0.00 - 0.08 10? 3 /uL 03/16/2022 6:31 AM [facility] Immature Granulocytes % 1.2(H) 0.0 - 1.0 % 03/16/2022 6:31 AM [facility] Immature Granulocytes Absolute 0.11 03/16/2022 6:31 AM [facility] Blood BLOOD SPECIMEN / Unknown Lab Venipuncture / Unknown 03/16/2022 6:19 AM CDT 03/16/2022 6:25 AM T Blair Mojica MD LAB - HEMATOLOGY [facility] [address] [id number], [facility] [phone] * PATHOLOGY TISSUE (03/15/2022 10:16 AM CDT) Case Report Surgical Pathology Report ? Case: [id number] ? Authorizing Provider: ??Anna Membreno MD ? Collected: ? 03/15/2022 10:16 AM ? Ordering Location: ? [facility] ?Received: ?03/15/2022 11:09 AM ? Pathologist: ? Naa Meza MD ? Specimen: ?Amputation Leg AK, Leg, Left ? 03/17/2022 1:38 PM CDT [facility] Final Diagnosis Leg, left, above knee amputation (A): - Skin with ulceration and necrosis - Underlying bone with marrow fibrosis, negative for osteomyelitis - Vascular calcifications - Soft tissue margins appear viable 03/17/2022 1:38 PM CDT [facility] Microscopic Description and Comment Microscopic examination substantiates the final diagnosis. 03/17/2022 1:38 PM [facility] Clinical History The patient is a 62-year-old man with altered mentation. Noted chronic skin change to left foot, particularly the 2nd and 3rd toes with darker discoloration and ulcer to the medial aspect of the 1st MTP with erythema and edema. Vascular surgery was consulted, arterial duplex was performed, showing severe peripheral vascular disease of left lower extremity, and left superficial femoral artery significant stenosis. 03/17/2022 1:38 PM [facility] Gross Description The requisition and specimen label(s) are identified with the patient's name, Mojgan Tabor. Received in formalin, specimen A , is a left qrtqd-[id number] amputation, 26.5 cm heel to toe, 49 cm from heel to popliteal fossa and 10.0 cm from popliteal fossa to proximal femur bone margin. 5 toes are present with a markedly thick yellow nail on the great toe.. There is a 3.7 x 3.5 cm black leathery lesion on the medial aspect of the base of the great toe that is 53 cm from the proximal posterior skin margin. Sectioning through the lesion shows black leathery superficial layers and there is no softening of the bone underneath. A second lesion red-brown and firm is at the tip of the great toe 1.2 x 0.7 cm, sectioning shows superficial discoloration with softening of the underlying bone. Additional softening is identified in the fifth digit. The remainder of the skin surface is dark marie with no lesions. Sectioning of the vasculature shows stenosis of the popliteal artery and calcification of the posterior and anterior tibial arteries with stenosis. There are no thrombi present. [employer] sections are submitted as follows: A1-medial fibrous lesion, A2-tip of the toe lesion with underlying bone following decalcification, A0-suvgz-krukusm from the fifth toe, decalcified, A4-proximal skin and soft tissue margin, en face, A5-popliteal artery, A6-posterior tibial artery, A7-anterior tibial artery. MS 03/17/2022 1:38 PM [facility] Disclaimer The performance characteristics of all immunohistochemical and indirect immunofluorescence stains (if any) cited in this report were determined by the Histopathology Laboratory of [facility]. Some of these tests were developed by [...] and interpreted by the attending (teaching) pathologist. 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 Blair Mojica MD LAB - CHEMISTRY [facility] Performing Organization Address City/[facility]/ZIP Co de Phone Number [facility] [address] [place] [address], [facility] [phone] * MRI FOOT LEFT WWO CONTRAST (03/15/2022 [...] DATE/TIME OF EXAM: ??03/15/2022 12:57 AM, LOCATION ??[facility] INDICATION: R78.81: Bacteremia I73.9: PAD (peripheral artery disease) ([facility] ADDITIONAL CLINICAL INFORMATION: Ordering Provider Reason For [...] DATE/TIME OF EXAM: 03/15/2022 12:57 AM, LOCATION [facility] INDICATION: R78.81: Bacteremia I73.9: PAD (peripheral artery disease) ([facility] ADDITIONAL CLINICAL INFORMATION: Ordering Provider Reason For [...] AM Blair Mojica MD MR ORDERABLES * MAGNESIUM BLOOD (03/14/2022 10:03 PM CDT) [facility] Magnesium 1.8 1.6 - 2.6 mg/dL 03/14/2022 10:38 PM T [facility] Blood BLOOD SPECIMEN / Unknown Venipuncture / Unknown 03/14/2022 10:03 PM CDT 03/14/2022 10:07 PM CDT Blair Mojica MD LAB - CHEMISTRY [facility]SH[facility] MEDER[facility] Organization Address City/State/[facility] Co de Phone Number [facility] [address] [place] [address], [facility] [phone] * (ABNORMAL) RENAL FUNCTION PANEL (03/14/2022 10:03 PM CDT) [facility] BUN 9 7 - 26 mg/dL 03/14/2022 10:38 PM T [facility] Creatinine 0.52(L) 0.71 - 1.16 mg/dL 03/14/2022 10:38 PM T [facility] Sodium 140 136 - 145 mmol/L 03/14/2022 10:38 PM T [facility] Potassium 3.8 3.5 - 4.5 mmol/L 03/14/2022 10:38 PM T [facility] Chloride 104 98 - 107 mmol/L 03/14/2022 10:38 PM [facility] CO2 28 22 - 29 mmol/L 03/14/2022 10:38 PM [facility] Glucose 108 70 - 115 mg/dL 03/14/2022 10:38 PM T [facility] Albumin 1.8(L) 3.4 - 5.0 g/dL 03/14/2022 10:38 PM [facility] Calcium 9.1 8.4 - 10.2 mg/dL 03/14/2022 10:38 PM [facility] Phosphorus 2.3(L) 2.8 - 5.1 mg/dL 03/14/2022 10:38 PM [facility] Anion Gap 12 8 - 18 03/14/2022 10:38 PM [facility] BUN/Creatinine Ratio 17 7 - 23 03/14/2022 10:38 PM [facility] Osmolality Calculated 289 270 - 300 mOsm/kg 03/14/2022 10:38 PM [facility] eGFR by CKD-EPI >90 >=90 mL/min/1.7 3 m2 03/14/2022 10:38 PM [facility] Blood BLOOD SPECIMEN / Unknown Venipuncture / Unknown 03/14/2022 10:03 PM CDT 03/14/2022 10:07 PM T Blair Mojica MD LAB - CHEMISTRY [facility] Organization Address City/State/ZIP Co de Phone Number [facility] [address] [place] [address], [facility] [phone] * (ABNORMAL) CBC W AUTO DIFFERENTIAL (03/14/2022 10:03 PM CDT) WBC 10.1 3.5 - 10.5 10? 3 /uL 03/14/2022 10:28 PM [facility] RBC 3.54(L) 4.30 - 5.70 10? 6 /uL 03/14/2022 10:28 PM [facility] Hemoglobin 11.4(L) 12.0 - 17.6 g/dL 03/14/2022 10:28 PM [facility] Hematocrit 33.4(L) 35.2 - 51.7 % 03/14/2022 10:28 PM [facility] MCV 94.4 80.7 - 98.3 fL 03/14/2022 10:28 PM [facility] MCH 32.2 26.7 - 34.0 pg 03/14/2022 10:28 PM [facility] MCHC 34.1 30.8 - 35.9 g/dL 03/14/2022 10:28 PM [facility] Platelet Count 295 150 - 400 10? 3 /uL 03/14/2022 10:28 PM [facility] Comment:Confirmed by repeat analysis. RDW-SD 43.1 36.0 - 50.0 fL 03/14/2022 10:28 PM [facility] RDW-CV 12.4 11.2 - 14.8 % 03/14/2022 10:28 PM [facility] MPV 11.3 9.4 - 12.9 fL 03/14/2022 10:28 PM [facility] nRBC Absolute 0.00 0 10? 3 /uL 03/14/2022 10:28 PM [facility] nRBC Auto 0.0 0 /100 WBC 03/14/2022 10:28 PM [facility] Neutrophils % 58.5 35.0 - 70.0 % 03/14/2022 10:28 PM [facility] Lymphocytes % 21.3 20.0 - 43.0 % 03/14/2022 10:28 PM [facility] Monocytes % 16.3(H) 5.0 - 13.0 % 03/14/2022 10:28 PM [facility] Eosinophils % 2.8 0.0 - 6.0 % 03/14/2022 10:28 PM [facility] Basophil % 0.2 0.0 - 2.0 % 03/14/2022 10:28 PM [facility] Neutrophils Absolute 5.92 1.60 - 7.00 10? 3 /uL 03/14/2022 10:28 PM [facility] Lymphocyte Absolute 2.15 1.10 - 3.90 10? 3 /uL 03/14/2022 10:28 PM [facility] Monocytes Absolute 1.65(H) 0.26 - 1.07 10? 3 /uL 03/14/2022 10:28 PM [facility] Eosinophils Absolute 0.28 0.00 - 0.47 10? 3 /uL 03/14/2022 10:28 PM CDT [facility] Basophils Absolute 0.02 0.00 - 0.08 10? 3 /uL 03/14/2022 10:28 PM CDT [facility] Immature Granulocytes % 0.9 0.0 - 1.0 % 03/14/2022 10:28 PM CDT [facility] Immature Granulocytes Absolute 0.09 03/14/2022 10:28 PM CDT [facility] Blood BLOOD SPECIMEN / Unknown Venipuncture / Unknown 03/14/2022 10:03 PM CDT 03/14/2022 10:07 PM CDT Blair Mojica MD LAB - HEMATOLOGY ORD ERABLES [facility] [address] [place] [address], [facility] [phone] * TYPE + SCREEN PANEL (03/14/2022 10:01 PM CDT) Antibody Screen NEG 10:45 PM CDT [facility] ABO Rh O POS 03/14/2022 10:45 PM CDT [facility] Blood Bank BLOOD SPECIMEN / Unknown Venipuncture / Unknown 03/14/2022 10:01 PM CDT 03/14/2022 10:07 PM CDT Blair Mojica MD LAB - BLOOD BANK ORD ERABLES [facility] [address] [place] [address], [facility] [phone] * (ABNORMAL) PHOSPHORUS BLOOD (03/14/2022 4:58 AM CDT) Phosphorus 2.3(L) 2.8 - 5.1 mg/dL 03/14/2022 7:09 AM CDT [facility] Blood BLOOD SPECIMEN / Unknown Lab Venipuncture / Unknown 03/14/2022 4:58 AM CDT 03/14/2022 6:46 AM CDT Blair Mojica MD LAB - CHEMISTRY ORDE RABLES [facility] [address] [place] [address], [place] [phone] * MAGNESIUM BLOOD (03/14/2022 4:58 AM CDT) [facility] Magnesium 1.7 1.6 - 2.6 mg/dL 03/14/2022 7:09 AM [facility] Blood BLOOD SPECIMEN / Unknown Lab Venipuncture / Unknown 03/14/2022 4:58 AM CDT 03/14/2022 6:46 AM CDT Blair Mojica MD LAB - CHEMISTRY [facility]SH[facility] MEDEROS Performing Organization Address City/[facility]/ZIP Co de Phone Number [facility] [address] [place] [address], [place] [phone] * (ABNORMAL) COMPREHENSIVE METABOLIC PANEL (03/14/2022 4:58 AM CDT) [facility] BUN 11 7 - 26 mg/dL 03/14/2022 7:09 AM [facility] Creatinine 0.49(L) 0.71 - 1.16 mg/dL 03/14/2022 7:09 AM [facility] Sodium 137 136 - 145 mmol/L 03/14/2022 7:09 AM [facility] Potassium 3.8 3.5 - 4.5 mmol/L 03/14/2022 7:09 AM [facility] Chloride 107 98 - 107 mmol/L 03/14/2022 7:09 AM [facility] CO2 26 22 - 29 mmol/L 03/14/2022 7:09 AM [facility] Glucose 79 70 - 115 mg/dL 03/14/2022 7:09 AM [facility] Calcium 9.0 8.4 - 10.2 mg/dL 03/14/2022 7:09 AM [facility] Protein Total 5.8(L) 6.0 - 8.3 g/dL 03/14/2022 7:09 AM [facility] Albumin 1.7(L) 3.4 - 5.0 g/dL 03/14/2022 7:09 AM [facility] Bilirubin Total 0.3 0.2 - 1.2 mg/dL 03/14/2022 7:09 AM [facility] Alkaline Phosphatase 73 40 - 150 U/L 03/14/2022 7:09 AM [facility] ALT 23 5 - 55 U/L 03/14/2022 7:09 AM [facility] AST 35(H) 5 - 34 U/L 03/14/2022 7:09 AM [facility] Anion Gap 8 8 - 18 03/14/2022 7:09 AM [facility] BUN/Creatinine Ratio 22 7 - 23 03/14/2022 7:09 AM [facility] Osmolality Calculated 282 270 - 300 mOsm/kg 03/14/2022 7:09 AM [facility] Albumin/Globulin Ratio 0.4(L) 1.1 - 2.3 03/14/2022 7:09 AM [facility] eGFR by CKD-EPI >90 >=90 mL/min/1.7 3 m2 03/14/2022 7:09 AM [facility] Blood BLOOD SPECIMEN / Unknown Lab Venipuncture / Unknown 03/14/2022 4:58 AM CDT 03/14/2022 6:46 AM CDT Blair Mojica MD LAB - CHEMISTRY [facility] Organization Address City/State/[facility] Co de Phone Number [facility] [address] [place] [address], [facility] [phone] * (ABNORMAL) CBC W AUTO DIFFERENTIAL (03/14/2022 4:58 AM CDT) WBC 9.2 3.5 - 10.5 10? 3 /uL 03/14/2022 6:51 AM [facility] RBC 3.23(L) 4.30 - 5.70 10? 6 /uL 03/14/2022 6:51 AM [facility] Hemoglobin 10.4(L) 12.0 - 17.6 g/dL 03/14/2022 6:51 AM [facility] Hematocrit 30.5(L) 35.2 - 51.7 % 03/14/2022 6:51 AM [facility] MCV 94.4 80.7 - 98.3 fL 03/14/2022 6:51 AM [facility] MCH 32.2 26.7 - 34.0 pg 03/14/2022 6:51 AM [facility] MCHC 34.1 30.8 - 35.9 g/dL 03/14/2022 6:51 AM [facility] Platelet Count 157 150 - 400 10? 3 /uL 03/14/2022 6:51 AM [facility] RDW-SD 43.0 36.0 - 50.0 fL 03/14/2022 6:51 AM [facility] RDW-CV 12.4 11.2 - 14.8 % 03/14/2022 6:51 AM [facility] MPV 12.9 9.4 - 12.9 fL 03/14/2022 6:51 AM [facility] nRBC Absolute 0.00 0 10? 3 /uL 03/14/2022 6:51 AM [facility] nRBC Auto 0.0 0 /100 WBC 03/14/2022 6:51 AM [facility] Neutrophils % 60.6 35.0 - 70.0 % 03/14/2022 6:51 AM [facility] Lymphocytes % 20.1 20.0 - 43.0 % 03/14/2022 6:51 AM [facility] Monocytes % 15.7(H) 5.0 - 13.0 % 03/14/2022 6:51 AM [facility] Eosinophils % 2.3 0.0 - 6.0 % 03/14/2022 6:51 AM [facility] Basophil % 0.3 0.0 - 2.0 % 03/14/2022 6:51 AM [facility] Neutrophils Absolute 5.60 1.60 - 7.00 10? 3 /uL 03/14/2022 6:51 AM [facility] Lymphocyte Absolute 1.86 1.10 - 3.90 10? 3 /uL 03/14/2022 6:51 AM CDT [facility] Monocytes Absolute 1.45(H) 0.26 - 1.07 10? 3 /uL 03/14/2022 6:51 AM CDT [facility] Eosinophils Absolute 0.21 0.00 - 0.47 10? 3 /uL 03/14/2022 6:51 AM CDT [facility] Basophils Absolute 0.03 0.00 - 0.08 10? 3 /uL 03/14/2022 6:51 AM CDT [facility] Immature Granulocytes % 1.0 0.0 - 1.0 % 03/14/2022 6:51 AM CDT [facility] Immature Granulocytes Absolute 0.09 03/14/2022 6:51 AM CDT [facility] Blood BLOOD SPECIMEN / Unknown Lab Venipuncture / Unknown 03/14/2022 4:58 AM CDT 03/14/2022 6:32 AM CDT Blair Mojica MD LAB - HEMATOLOGY ORD ERABLES [facility] [address] [place] [address], [place] [phone] * (ABNORMAL) GLUCOSE - POINT OF CARE (03/13/2022 11:00 PM CDT) [facility] Glucose WB/POC 134(H) 70 - 115 mg/dL 03/13/2022 11:01 PM CDT [facility] Specimen Type Cap Fingerstick 2021 11:01 PM CDT [facility] Blood BLOOD SPECIMEN / Unknown 03/13/2022 11:00 PM CDT 03/13/2022 11:01 PM CDT Blair Mojica MD LAB - POINT OF CARE ORDERABLES [address] [address], [place] [phone] * VANCOMYCIN LEVEL TROUGH (03/13/2022 10:50 PM CDT) [facility] Vancomycin Trough 16.9 10.0 - 20.0 ug/mL 03/13/2022 11:21 PM CDT [facility] Blood BLOOD SPECIMEN / Unknown Venipuncture / Unknown 03/13/2022 10:50 PM CDT 03/13/2022 10:57 PM CDT Narrative [facility] - 03/13/2022 11:21 PM CDT See institution protocol. Blair Mojica MD LAB - CHEMISTRY [facility]EROS Performing Organization Address City/[facility]/ZIP Co de Phone Number [address] [address], [place] [phone] * (ABNORMAL) GLUCOSE - POINT OF CARE (03/13/2022 8:46 AM CDT) Glucose WB/POC 119(H) 70 - 115 mg/dL 03/13/2022 8:51 AM CDT [facility] Specimen Type Cap Fingerstick 2021 8:51 AM CDT [facility] Blood BLOOD SPECIMEN / Unknown 03/13/2022 8:46 AM CDT 03/13/2022 8:51 AM CDT Blair Mojica MD LAB - POINT OF CARE ORDERABLES Performing Organization Address [facility]/ZIP Co de Phone Number [address] [address], [place] [phone] * MAGNESIUM BLOOD (03/13/2022 4:19 AM CDT) Magnesium 2.1 1.6 - 2.6 mg/dL 03/13/2022 5:52 AM CDT [facility] Blood BLOOD SPECIMEN / Unknown Lab Venipuncture / Unknown 03/13/2022 4:19 AM CDT 03/13/2022 5:25 AM CDT Blair Mojica MD LAB - CHEMISTRY [facility]SH[facility] MEDEROS Performing Organization Address City/[facility]/ZIP Co de Phone Number [address] [address], [place] [phone] * (ABNORMAL) RENAL FUNCTION PANEL (03/13/2022 4:19 AM CDT) BUN 14 7 - 26 mg/dL 03/13/2022 5:52 AM [facility] Creatinine 0.61(L) 0.71 - 1.16 mg/dL 03/13/2022 5:52 AM [facility] Sodium 141 136 - 145 mmol/L 03/13/2022 5:52 AM [facility] Potassium 4.0 3.5 - 4.5 mmol/L 03/13/2022 5:52 AM [facility] Chloride 108(H) 98 - 107 mmol/L 03/13/2022 5:52 AM [facility] CO2 25 22 - 29 mmol/L 03/13/2022 5:52 AM [facility] Glucose 76 70 - 115 mg/dL 03/13/2022 5:52 AM [facility] Albumin 2.0(L) 3.4 - 5.0 g/dL 03/13/2022 5:52 AM [facility] Calcium 9.3 8.4 - 10.2 mg/dL 03/13/2022 5:52 AM [facility] Phosphorus 2.8 2.8 - 5.1 mg/dL 03/13/2022 5:52 AM [facility] Anion Gap 12 8 - 18 03/13/2022 5:52 AM [facility] BUN/Creatinine Ratio 23 7 - 23 03/13/2022 5:52 AM [facility] Osmolality Calculated 291 270 - 300 mOsm/kg 03/13/2022 5:52 AM [facility] eGFR by CKD-EPI >90 >=90 mL/min/1.7 3 m2 03/13/2022 5:52 AM [facility] Blood BLOOD SPECIMEN / Unknown Lab Venipuncture / Unknown 03/13/2022 4:19 AM CDT 03/13/2022 5:25 AM T Blair Mojica MD LAB - CHEMISTRY [facility] Organization Address City/State/ZIP Co de Phone Number [facility] [address] [place] [address], [facility] [phone] * (ABNORMAL) CBC W AUTO DIFFERENTIAL (03/13/2022 4:19 AM CDT) [facility] WBC 10.7(H) 3.5 - 10.5 10? 3 /uL 03/13/2022 5:43 AM [facility] RBC 3.84(L) 4.30 - 5.70 10? 6 /uL 03/13/2022 5:43 AM [facility] Hemoglobin 12.2 12.0 - 17.6 g/dL 03/13/2022 5:43 AM [facility] Hematocrit 37.4 35.2 - 51.7 % 03/13/2022 5:43 AM [facility] MCV 97.4 80.7 - 98.3 fL 03/13/2022 5:43 AM [facility] MCH 31.8 26.7 - 34.0 pg 03/13/2022 5:43 AM [facility] MCHC 32.6 30.8 - 35.9 g/dL 03/13/2022 5:43 AM [facility] Platelet Count 180 150 - 400 10? 3 /uL 03/13/2022 5:43 AM [facility] RDW-SD 44.3 36.0 - 50.0 fL 03/13/2022 5:43 AM [facility] RDW-CV 12.4 11.2 - 14.8 % 03/13/2022 5:43 AM [facility] MPV 12.2 9.4 - 12.9 fL 03/13/2022 5:43 AM [facility] nRBC Absolute 0.00 0 10? 3 /uL 03/13/2022 5:43 AM [facility] nRBC Auto 0.0 0 /100 WBC 03/13/2022 5:43 AM [facility] Neutrophils % 62.1 35.0 - 70.0 % 03/13/2022 5:43 AM [facility] Lymphocytes % 20.9 20.0 - 43.0 % 03/13/2022 5:43 AM [facility] Monocytes % 13.4(H) 5.0 - 13.0 % 03/13/2022 5:43 AM T [facility] Eosinophils % 2.5 0.0 - 6.0 % 03/13/2022 5:43 AM [facility] Basophil % 0.3 0.0 - 2.0 % 03/13/2022 5:43 AM T [facility] Neutrophils Absolute 6.64 1.60 - 7.00 10? 3 /uL 03/13/2022 5:43 AM T [facility] Lymphocyte Absolute 2.23 1.10 - 3.90 10? 3 /uL 03/13/2022 5:43 AM T [facility] Monocytes Absolute 1.43(H) 0.26 - 1.07 10? 3 /uL 03/13/2022 5:43 AM [facility] Eosinophils Absolute 0.27 0.00 - 0.47 10? 3 /uL 03/13/2022 5:43 AM T [facility] Basophils Absolute 0.03 0.00 - 0.08 10? 3 /uL 03/13/2022 5:43 AM [facility] Immature Granulocytes % 0.8 0.0 - 1.0 % 03/13/2022 5:43 AM [facility] Immature Granulocytes Absolute 0.09 03/13/2022 5:43 AM [facility] Blood BLOOD SPECIMEN / Unknown Lab Venipuncture / Unknown 03/13/2022 4:19 AM CDT 03/13/2022 5:25 AM CDT Blair Mojica MD LAB - HEMATOLOGY ORD ERABLES [facility] [address] [place] [address], [facility] [phone] * CULTURE BLOOD (03/12/2022 2:00 AM CDT) Culture No growth day 5 JELLY 03/17/2022 8:32 AM CDT [facility] MICRO[facility] Blood PERIPHERAL BLOOD / Unknown Lab Venipuncture / Unknown 03/12/2022 2:00 AM CDT 03/12/2022 2:30 AM CDT Blair Mojica MD LAB - MICROBIOLOGY O VANESSA Performing Organization Address City/[facility]/ZIP Co de Phone Number [facility] MICROBIOLOGY [address] [place] [address], [facility] [phone] * CULTURE BLOOD (03/12/2022 1:58 AM CDT) Culture No growth day 5 JELLY 03/17/2022 8:32 AM CDT [facility]CRO[facility] Blood PERIPHERAL BLOOD / Unknown Lab Venipuncture / Unknown 03/12/2022 1:58 AM CDT 03/12/2022 2:30 AM CDT Blair Mojica MD LAB - MICROBIOLOGY O VANESSA Performing Organization Address [facility] Co de Phone Number [facility]CRO[facility] [address] [place] [address], [facility] [phone] * MAGNESIUM BLOOD (03/12/2022 1:58 AM CDT) Pathologist [facility] Magnesium 1.8 1.6 - 2.6 mg/dL 03/12/2022 3:12 AM CDT [facility] Blood BLOOD SPECIMEN / Unknown Lab Venipuncture / Unknown 03/12/2022 1:58 AM CDT 03/12/2022 2:32 AM CDT Blair Mojica MD LAB - CHEMISTRY MARSH[facility] MEDEROS Performing Organization Address City/[facility]/ZIP Co de Phone Number [facility] [address] [place] [address], [facility] [phone] * (ABNORMAL) CBC W AUTO DIFFERENTIAL (03/12/2022 1:58 AM CDT) WBC 12.4(H) 3.5 - 10.5 10? 3 /uL 03/12/2022 2:50 AM CDT [facility] RBC 3.55(L) 4.30 - 5.70 10? 6 /uL 03/12/2022 2:50 AM CDT [facility] Hemoglobin 11.3(L) 12.0 - 17.6 g/dL 03/12/2022 2:50 AM [facility] Hematocrit 33.4(L) 35.2 - 51.7 % 03/12/2022 2:50 AM [facility] MCV 94.1 80.7 - 98.3 fL 03/12/2022 2:50 AM [facility] MCH 31.8 26.7 - 34.0 pg 03/12/2022 2:50 AM [facility] MCHC 33.8 30.8 - 35.9 g/dL 03/12/2022 2:50 AM [facility] Platelet Count 225 150 - 400 10? 3 /uL 03/12/2022 2:50 AM [facility] RDW-SD 41.9 36.0 - 50.0 fL 03/12/2022 2:50 AM [facility] RDW-CV 11.9 11.2 - 14.8 % 03/12/2022 2:50 AM [facility] MPV 11.7 9.4 - 12.9 fL 03/12/2022 2:50 AM [facility] nRBC Absolute 0.00 0 10? 3 /uL 03/12/2022 2:50 AM [facility] nRBC Auto 0.0 0 /100 WBC 03/12/2022 2:50 AM [facility] Neutrophils % 72.5(H) 35.0 - 70.0 % 03/12/2022 2:50 AM [facility] Lymphocytes % 14.2(L) 20.0 - 43.0 % 03/12/2022 2:50 AM [facility] Monocytes % 11.0 5.0 - 13.0 % 03/12/2022 2:50 AM [facility] Eosinophils % 1.6 0.0 - 6.0 % 03/12/2022 2:50 AM [facility] Basophil % 0.2 0.0 - 2.0 % 03/12/2022 2:50 AM [facility] Neutrophils Absolute 8.98(H) 1.60 - 7.00 10? 3 /uL 03/12/2022 2:50 AM [facility] Lymphocyte Absolute 1.76 1.10 - 3.90 10? 3 /uL 03/12/2022 2:50 AM T [facility] Monocytes Absolute 1.36(H) 0.26 - 1.07 10? 3 /uL 03/12/2022 2:50 AM [facility] Eosinophils Absolute 0.20 0.00 - 0.47 10? 3 /uL 03/12/2022 2:50 AM T [facility] Basophils Absolute 0.03 0.00 - 0.08 10? 3 /uL 03/12/2022 2:50 AM [facility] Immature Granulocytes % 0.5 0.0 - 1.0 % 03/12/2022 2:50 AM [facility] Immature Granulocytes Absolute 0.06 03/12/2022 2:50 AM [facility] Blood BLOOD SPECIMEN / Unknown Lab Venipuncture / Unknown 03/12/2022 1:58 AM CDT 03/12/2022 2:32 AM CDT Blair Mojica MD LAB - HEMATOLOGY ORD ERABLES [facility] [address] [place] [id number], [facility] [phone] * (ABNORMAL) RENAL FUNCTION PANEL (03/12/2022 1:58 AM CDT) BUN 10 7 - 26 mg/dL 03/12/2022 3:12 AM [facility] Creatinine 0.55(L) 0.71 - 1.16 mg/dL 03/12/2022 3:12 AM [facility] Sodium 139 136 - 145 mmol/L 03/12/2022 3:12 AM [facility] Potassium 3.3(L) 3.5 - 4.5 mmol/L 03/12/2022 3:12 AM [facility] Chloride 106 98 - 107 mmol/L 03/12/2022 3:12 AM [facility] CO2 26 22 - 29 mmol/L 03/12/2022 3:12 AM [facility] Glucose 104 70 - 115 mg/dL 03/12/2022 3:12 AM [facility] Albumin 1.9(L) 3.4 - 5.0 g/dL 03/12/2022 3:12 AM [facility] Calcium 8.8 8.4 - 10.2 mg/dL 03/12/2022 3:12 AM [facility] Phosphorus 2.9 2.8 - 5.1 mg/dL 03/12/2022 3:12 AM [facility] Anion Gap 10 8 - 18 03/12/2022 3:12 AM [facility] BUN/Creatinine Ratio 18 7 - 23 03/12/2022 3:12 AM [facility] Osmolality Calculated 287 270 - 300 mOsm/kg 03/12/2022 3:12 AM [facility] eGFR by CKD-EPI >90 >=90 mL/min/1.7 3 m2 03/12/2022 3:12 AM [facility] Blood BLOOD SPECIMEN / Unknown Lab Venipuncture / Unknown 03/12/2022 1:58 AM CDT 03/12/2022 2:32 AM CDT Blair Mojica MD LAB - CHEMISTRY [facility] [address] [id number], [place] [phone] * VALPROIC ACID LEVEL (03/12/2022 1:58 AM CDT) Valproic Acid Total 95 50 - 100 ug/mL 03/12/2022 3:49 AM CDT [facility] Blood BLOOD SPECIMEN / Unknown Lab Venipuncture / Unknown 03/12/2022 1:58 AM CDT 03/12/2022 2:32 AM CDT Blair Mojica MD LAB - CHEMISTRY [facility] [address] [address], [place] [phone] * VANCOMYCIN LEVEL TROUGH (03/11/2022 11:39 PM CDT) Vancomycin Trough 12.5 10.0 - 20.0 ug/mL 03/12/2022 12:10 AM CDT [facility] Blood BLOOD SPECIMEN / Unknown Venipuncture / Unknown 03/11/2022 11:39 PM CDT 03/11/2022 11:43 PM CDT Narrative [facility] - 03/12/2022 12:10 AM CDT See institution protocol. Blair Mojica MD LAB - CHEMISTRY [facility] Organization Address City/State/ZIP Co de Phone Number [facility] [address] [place] [address], [facility] [phone] * ECHO COMPLETE (03/11/2022 3:29 PM CDT) Anatomical Region Laterality Modality Chest Echo 03/11/2022 2:38 PM CDT Narrative Procedure Note Misael Ritter MD - 03/11/2022 Blair Mojica MD ECHOCARDIOGRAPHY RAD IANT * (ABNORMAL) URINALYSIS REFLEX TO MICROSCOPIC NO CULTURE (03/11/2022 1:29 PM CDT) Color UA Yellow Straw, Yellow 03/11/2022 4:10 PM CDT [facility] Clarity UA Clear Clear 03/11/2022 4:10 PM CDT [facility] Specific [place] UA 1.010 1.005 - 1.030 03/11/2022 4:10 PM CDT [facility] pH UA 7.0 5.0 - 8.0 pH 03/11/2022 4:10 PM CDT [facility] Protein UA Negative Negative 03/11/2022 4:10 PM CDT [facility] Glucose UA Negative Negative 03/11/2022 4:10 PM CDT [facility] Ketone UA Negative Negative 03/11/2022 4:10 PM CDT [facility] Bilirubin UA Negative Negative 03/11/2022 4:10 PM CDT [facility] Blood UA Negative Negative 03/11/2022 4:10 PM CDT [facility] Nitrite UA Negative Negative 03/11/2022 4:10 PM CDT [facility] Leukocyte Esterase Negative Negative 03/11/2022 4:10 PM CDT [facility] Urobilinogen UA Negative Negative mg/dL 03/11/2022 4:10 PM CDT [facility] RBC UA 0-2 None Seen, 0-2, 3-5 /HPF 03/11/2022 4:10 PM CDT [facility] WBC UA 0-5 None Seen, 0-5 /HPF 03/11/2022 4:10 PM CDT [facility] Bacteria UA Trace(A) None /HPF 03/11/2022 4:10 PM CDT [facility] Squamous Epithelial Cells UA 0-2 None Seen, 0-2, 3-5 /HPF 03/11/2022 4:10 PM CDT [facility] Mucus UA 1+ /LPF 03/11/2022 4:10 PM CDT [facility] Urine URINE SPECIMEN OBTAINED BY CLEAN CATCH PROCEDURE / Unknown Collection / Unknown 03/11/2022 1:29 PM CDT 03/11/2022 1:42 PM CDT Narrative [facility] - 03/11/2022 4:10 PM CDT Blair Mojica MD LAB - URINALYSIS ORD ERABLES [facility] [address] [place] [address], [facility] [phone] * CT HEAD WO CONTRAST (03/11/2022 11:15 AM CDT) Anatomical Region Laterality Modality Head Computed Tomogra phy 03/11/2022 11:1 8 AM CDT Impressions 03/11/2022 11:23 AM CDT IMPRESSION: 1.No acute intracranial abnormality. 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 > Interpreting Provider: Latrice Ortiz MD on 03/11/2022 11:23 AM Narrative 03/11/2022 11:23 AM CDT PROCEDURE: ??CT HEAD WO CONTRAST, DATE/TIME OF EXAM: ??03/11/2022 11:15 AM, LOCATION ??[facility] INDICATION: R78.81: Bacteremia ADDITIONAL CLINICAL INFORMATION: Ordering Provider Reason For Exam: ??change in mentation COMPARISON: CT head from 03/10/2022 was reviewed. EXAMINATION: CT scan of the head without intravenous contrast TECHNIQUE: CT of the head was performed without intravenous contrast according to standard protocol. CT dose reduction technique was used, including Automated Exposure Control. 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 Moderate chronic microvascular ischemic changes are seen. There is moderate generalized parenchymal volume loss. There is no CT evidence of acute infarct. There is no acute hemorrhage. There is no hydrocephalus, midline shift or extra-axial fluid collection. 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 The orbits are unremarkable. No significant calvarial or soft tissue abnormality is noted. Procedure Note Latrice Ortiz MD - 03/11/2022 PROCEDURE: CT HEAD WO CONTRAST, DATE/TIME OF EXAM: 03/11/2022 11:15AM, LOCATION [facility] INDICATION: R78.81: Bacteremia ADDITIONAL CLINICAL INFORMATION: Ordering Provider Reason For Exam: change in mentation COMPARISON: CT head from 03/10/2022 was reviewed. EXAMINATION: CT scan of the head without intravenous contrast TECHNIQUE: CT of the head was performed without intravenous contrast according to standard protocol. CT dose reduction technique was used, including Automated Exposure Control. 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 Moderate chronic microvascular ischemic changes are seen. There is moderate generalized parenchymalvolume loss. There is no CT evidence of acute infarct. There is no acute hemorrhage. There is no hydrocephalus, midline shiftor extra-axial fluid collection. 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 The orbits are unremarkable. No significant calvarial or soft tissue abnormality is noted. IMPRESSION: 1.No acute intracranial abnormality. 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 > Interpreting Provider: Latrice Ortiz MD on 03/11/2022 11:23 AM Blair Mojica MD CT ORDERABLES * (ABNORMAL) PHOSPHORUS BLOOD (03/11/2022 10:59 AM CDT) Phosphorus 2.7(L) 2.8 - 5.1 mg/dL 03/11/2022 11:35 AM CDT [facility] Blood BLOOD SPECIMEN / Unknown Venipuncture / Unknown 03/11/2022 10:59 AM CDT 03/11/2022 11:05 AM CDT Blair Mojica MD LAB - CHEMISTRY [facility] Performing Organization Address City/[facility]/ZIP Co de Phone Number [address] [address], [facility] [phone] * MAGNESIUM BLOOD (03/11/2022 10:59 AM CDT) Magnesium 1.8 1.6 - 2.6 mg/dL 03/11/2022 11:35 AM CDT [facility] Blood BLOOD SPECIMEN / Unknown Venipuncture / Unknown 03/11/2022 10:59 AM CDT 03/11/2022 11:05 AM CDT Blair Mojica MD LAB - CHEMISTRY [facility] [address] [address], [facility] [phone] * LACTIC ACID BLOOD (03/11/2022 10:59 AM CDT) Lactic Acid-Stat 0.7 <=2.0 mmol/L 03/11/2022 11:29 AM CDT [facility] Blood BLOOD SPECIMEN / Unknown Venipuncture / Unknown 03/11/2022 10:59 AM CDT 03/11/2022 11:05 AM CDT Blair Mojica MD LAB - CHEMISTRY [facility] Organization Address City/State/ZIP Co de Phone Number [facility] [address] [place] [address], [facility] [phone] * (ABNORMAL) BLOOD GASES ART + COOX PANEL (03/11/2022 10:59 AM CDT) pH Arterial 7.47(H) 7.35 - 7.45 pH 03/11/2022 11:06 AM [facility] pO2 Arterial 80 80 - 100 mmHg 03/11/2022 11:06 AM [facility] pCO2 Arterial 41 35 - 45 mmHg 11:06 AM [facility] HCO3 Arterial 30 20 - 30 mmol/l 03/11/2022 11:06 AM [facility] BE Arterial 5.6(H) -2.0 - 2.0 mmol/L 03/11/2022 11:06 AM [facility] Oxyhemoglobin Arterial 95.0 % 03/11/2022 11:06 AM [facility] Dexoyhemoglobin (HHB) % 2.1 % 03/11/2022 11:06 AM [facility] Methemoglobin 0.9 0.0 - 2.0 % 03/11/2022 11:06 AM [facility] Carboxyhemoglobin 1.9 0.0 - 2.0 % 2021 11:06 AM [facility] O2 Content Arterial 15.7 Interpret within clinical context ml/dL 03/11/2022 11:06 AM [facility] Hemoglobin by COOX 11.7(L) 12.0 - 17.6 g/dL 03/11/2022 11:06 AM [facility] O2 Saturation Arterial 98 90 - 100 % 03/11/2022 11:06 AM [facility] FI O2 Arterial 21.0 % 03/11/2022 11:06 AM [facility] Blood, arterial ARTERIAL BLOOD SPECIMEN / Unknown Arterial Puncture / Unknown 03/11/2022 10:59 AM CDT 03/11/2022 11:03 AM CDT Narrative [facility] - 03/11/2022 11:06 AM CDT Carboxyhemoglobin Normal Concentration: Non-smokers: 0-2%; Smokers: 0-9%; Toxic: >20% Blair Mojica MD LAB - BLOOD GASES OR DERABLES Performing Organization Address [facility] de Phone Number [facility] [address] [place] [phone], [facility] [phone] * (ABNORMAL) PT-INR [facility] (03/11/2022 10:59 AM CDT) PT 15.4(H) 12.1 - 14.8 Seconds 03/11/2022 12:10 PM CDT [facility] INR 1.2 See Comment 03/11/2022 12:10 PM T [facility] Comment:The suggested therap eutic range for standard coumadin (warfarin) therapy is an INR of 2.0-3.0. For high-risk patients (Mechanical Mitral Valve Prosthesis, etc.), the suggested prophylactic therapeutic range is an INR of 2.5-3.5. Blood BLOOD SPECIMEN / Unknown Venipuncture / Unknown 03/11/2022 10:59 AM CDT 03/11/2022 11:05 AM CDT Blair Mojica MD LAB - COAGULATION OR DERABLES Performing Organization Address [facility] de Phone Number [facility] [address] [place] [phone], [facility] [phone] * (ABNORMAL) COMPREHENSIVE METABOLIC PANEL (03/11/2022 10:59 AM CDT) BUN 7 7 - 26 mg/dL 03/11/2022 11:35 AM CDT [facility] Creatinine 0.50(L) 0.71 - 1.16 mg/dL 03/11/2022 11:35 AM CDT [facility] Sodium 139 136 - 145 mmol/L 03/11/2022 11:35 AM T [facility] Potassium 3.2(L) 3.5 - 4.5 mmol/L 03/11/2022 11:35 AM [facility] Chloride 104 98 - 107 mmol/L 03/11/2022 11:35 AM [facility] CO2 30(H) 22 - 29 mmol/L 03/11/2022 11:35 AM [facility] Glucose 103 70 - 115 mg/dL 03/11/2022 11:35 AM [facility] Calcium 8.6 8.4 - 10.2 mg/dL 03/11/2022 11:35 AM [facility] Protein Total 5.9(L) 6.0 - 8.3 g/dL 03/11/2022 11:35 AM [facility] Albumin 1.9(L) 3.4 - 5.0 g/dL 03/11/2022 11:35 AM [facility] Bilirubin Total 0.4 0.2 - 1.2 mg/dL 03/11/2022 11:35 AM [facility] Alkaline Phosphatase 71 40 - 150 U/L 03/11/2022 11:35 AM [facility] ALT 26 5 - 55 U/L 03/11/2022 11:35 AM [facility] AST 60(H) 5 - 34 U/L 03/11/2022 11:35 AM [facility] Anion Gap 8 8 - 18 03/11/2022 11:35 AM [facility] BUN/Creatinine Ratio 14 7 - 23 03/11/2022 11:35 AM [facility] Osmolality Calculated 286 270 - 300 mOsm/kg 03/11/2022 11:35 AM [facility] Albumin/Globulin Ratio 0.5(L) 1.1 - 2.3 03/11/2022 11:35 AM [facility] eGFR by CKD-EPI >90 >=90 mL/min/1.7 3 m2 03/11/2022 11:35 AM [facility] Blood BLOOD SPECIMEN / Unknown Venipuncture / Unknown 03/11/2022 10:59 AM CDT 03/11/2022 11:05 AM T Blair Mojica MD LAB - CHEMISTRY [facility] Organization Address City/State/ZIP Co de Phone Number [facility] [address] [place] [address], [facility] [phone] * (ABNORMAL) CBC W AUTO DIFFERENTIAL (03/11/2022 10:59 AM CDT) WBC 11.7(H) 3.5 - 10.5 10? 3 /uL 03/11/2022 11:29 AM [facility] RBC 3.47(L) 4.30 - 5.70 10? 6 /uL 03/11/2022 11:29 AM [facility] Hemoglobin 11.1(L) 12.0 - 17.6 g/dL 03/11/2022 11:29 AM [facility] Hematocrit 32.5(L) 35.2 - 51.7 % 03/11/2022 11:29 AM [facility] MCV 93.7 80.7 - 98.3 fL 03/11/2022 11:29 AM [facility] MCH 32.0 26.7 - 34.0 pg 03/11/2022 11:29 AM [facility] MCHC 34.2 30.8 - 35.9 g/dL 03/11/2022 11:29 AM [facility] Platelet Count 208 150 - 400 10? 3 /uL 03/11/2022 11:29 AM [facility] RDW-SD 41.5 36.0 - 50.0 fL 03/11/2022 11:29 AM [facility] RDW-CV 12.0 11.2 - 14.8 % 03/11/2022 11:29 AM [facility] MPV 11.4 9.4 - 12.9 fL 03/11/2022 11:29 AM [facility] nRBC Absolute 0.00 0 10? 3 /uL 03/11/2022 11:29 AM [facility] nRBC Auto 0.0 0 /100 WBC 03/11/2022 11:29 AM [facility] Neutrophils % 72.2(H) 35.0 - 70.0 % 03/11/2022 11:29 AM [facility] Lymphocytes % 13.8(L) 20.0 - 43.0 % 03/11/2022 11:29 AM [facility] Monocytes % 12.2 5.0 - 13.0 % 03/11/2022 11:29 AM [facility] Eosinophils % 0.9 0.0 - 6.0 % 03/11/2022 11:29 AM [facility] Basophil % 0.2 0.0 - 2.0 % 03/11/2022 11:29 AM [facility] Neutrophils Absolute 8.44(H) 1.60 - 7.00 10? 3 /uL 03/11/2022 11:29 AM [facility] Lymphocyte Absolute 1.61 1.10 - 3.90 10? 3 /uL 03/11/2022 11:29 AM [facility] Monocytes Absolute 1.42(H) 0.26 - 1.07 10? 3 /uL 03/11/2022 11:29 AM [facility] Eosinophils Absolute 0.11 0.00 - 0.47 10? 3 /uL 03/11/2022 11:29 AM [facility] Basophils Absolute 0.02 0.00 - 0.08 10? 3 /uL 03/11/2022 11:29 AM [facility] Immature Granulocytes % 0.7 0.0 - 1.0 % 03/11/2022 11:29 AM [facility] Immature Granulocytes Absolute 0.08 03/11/2022 11:29 AM [facility] Blood BLOOD SPECIMEN / Unknown Venipuncture / Unknown 03/11/2022 10:59 AM CDT 03/11/2022 11:05 AM T Blair Mojica MD LAB - HEMATOLOGY ORD ERABLES [facility] [address] [place] [phone], [facility] [phone] * GLUCOSE - POINT OF CARE (03/11/2022 10:41 AM CDT) [facility] Glucose WB/POC 107 70 - 115 mg/dL 03/11/2022 10:53 AM CDT [facility] Specimen Type Cap Fingerstick 2021 10:53 AM CDT [facility] Blood BLOOD SPECIMEN / Unknown 03/11/2022 10:41 AM CDT 03/11/2022 10:53 AM CDT Blair Mojica MD LAB - POINT OF CARE ORDERABLES Performing Organization Address [facility]/ZIP Co de Phone Number [facility] [address] [place] [address], [facility] [phone] * CULTURE BLOOD (03/11/2022 3:48 AM CDT) Culture No growth day 5 JELLY 03/16/2022 8:02 AM CDT [facility] Blood PERIPHERAL BLOOD / Unknown Lab Venipuncture / Unknown 03/11/2022 3:48 AM CDT 03/11/2022 3:52 AM CDT Blair Mojica MD LAB - MICROBIOLOGY O RDERABLES Performing Organization Address [facility] Co de Phone Number [facility] [address] [place] [address], [facility] [phone] * CULTURE BLOOD (03/11/2022 3:37 AM CDT) Culture No growth day 5 JELLY 03/16/2022 8:02 AM CDT [facility] Blood PERIPHERAL BLOOD / Unknown Lab Venipuncture / Unknown 03/11/2022 3:37 AM CDT 03/11/2022 3:52 AM CDT Blair Mojica MD LAB - MICROBIOLOGY O RDERABLES Performing Organization Address [facility] Co de Phone Number [facility] [address] [place] [address], [facility] [phone] * CT HEAD WO CONTRAST (03/10/2022 4:04 PM CDT) Anatomical Region Laterality Modality Head Computed Tomogra phy 03/10/2022 5:49 PM CDT Impressions 03/10/2022 6:09 PM CDT IMPRESSION: 1.No acute intracranial hemorrhage, midline shift, or significant mass effect. > Interpreting Provider: Wojciech Neil MD on 03/10/2022 6:09 PM Narrative 03/10/2022 6:09 PM CDT PROCEDURE: ??CT HEAD WO CONTRAST, DATE/TIME OF EXAM: ??03/10/2022 4:04 PM, LOCATION ??[facility] INDICATION: G93.40: Acute encephalopathy EXAMINATION: Computed tomography (CT) of the head without contrast ADDITIONAL CLINICAL INFORMATION: Ordering Provider Reason For Exam: ??AMS with hx of seizures Technologist Note: ??None. Additional: ??None. CONTRAST: ??None. ?? TECHNIQUE: CT of the head was performed without contrast according to standard protocol. CT dose reduction technique was used, including Automated Exposure Control. COMPARISON: CT of the head and CT angiogram of the head and neck from 12/29/2021. FINDINGS: No acute intra- or extra-axial fluid collections are identified. There is mild cerebral and cerebellar volume loss with associated ex vacuo ventricular dilatation. The basilar cisterns are patent. No mass effect or midline shift is seen. Chronic encephalomalacia in the right occipital lobe. Chronic lacunar infarcts in the bilateral basal ganglia and the bilateral thalami, left more than right. The garber-white matter differentiation otherwise appears normal. Periventricular white matter hypoattenuation is indicative of chronic small vessel ischemic disease. There is vascular calcification of the carotid siphons. No acute calvarial fracture is identified. Other than an old left lamina papyracea fracture, the orbits appear normal. There is redemonstration of near complete opacification of the right maxillary sinus with hyperdense material concerning for chronic or fungal disease. Frothy secretions in the right ethmoid air cells. Mild mucosal thickening in the remaining paranasal sinuses. Hypertrophy of the left inferior turbinate. Prominence along the base of the right inferior turbinate. The mastoid air cells are grossly clear. Small amount of cerumen in the right external canal. No soft tissue abnormality is identified. Procedure Note Wojciech Neil MD - 03/10/2022 PROCEDURE: CT HEAD WO CONTRAST, DATE/TIME OF EXAM: 03/10/2022 4:04 PM, LOCATION [facility] INDICATION: G93.40: Acute encephalopathy EXAMINATION: Computed tomography (CT) of the head without contrast ADDITIONAL CLINICAL INFORMATION: Ordering Provider Reason For Exam: AMS with hx of seizures Technologist Note: None. Additional: None. CONTRAST: None. TECHNIQUE: CT of the head was performed without contrast according to standard protocol. CT dose reduction technique was used, including Automated Exposure Control. COMPARISON: CT of the head and CT angiogram of the head and neck from 12/29/2021. FINDINGS: No acute intra- or extra-axial fluid collections are identified. Thereis mild cerebral and cerebellar volume loss with associated ex vacuo ventricular dilatation. The basilar cisterns are patent. No mass effector midline shift is seen. Chronic encephalomalacia in the right occipital lobe. Chronic lacunar infarcts in the bilateral basal ganglia and the bilateral thalami, left more than right. The garber-white matter differentiation otherwise appears normal. Periventricular white matter hypoattenuation is indicative of chronicsmall vessel ischemic disease. There is vascular calcification of the carotid siphons. No acute calvarial fracture is identified. Other than an old left lamina papyracea fracture, the orbits appearnormal. There is redemonstration of near complete opacification of the right maxillary sinus with hyperdense material concerning for chronic orfungal disease. Frothy secretions in the right ethmoid air cells. Mild mucosal thickening in the remaining paranasal sinuses. Hypertrophy of the left inferior turbinate. Prominence along the base of the right inferior turbinate. The mastoid air cells are grossly clear. Small amount ofcerumen in the right external canal. No soft tissue abnormality is identified. IMPRESSION: 1.No acute intracranial hemorrhage, midline shift, or significant mass effect. > Interpreting Provider: Wojciech Neil MD on 03/10/2022 6:09 PM Blair Mojica MD CT ORDERABLES * (ABNORMAL) CBC W/O DIFFERENTIAL (03/10/2022 11:47 AM CDT) WBC 15.4(H) 3.5 - 10.5 10? 3 /uL 03/10/2022 12:15 PM CDT [facility] RBC 3.76(L) 4.30 - 5.70 10? 6 /uL 03/10/2022 12:15 PM [facility] Hemoglobin 11.9(L) 12.0 - 17.6 g/dL 03/10/2022 12:15 PM [facility] Hematocrit 36.1 35.2 - 51.7 % 03/10/2022 12:15 PM [facility] MCV 96.0 80.7 - 98.3 fL 03/10/2022 12:15 PM [facility] MCH 31.6 26.7 - 34.0 pg 03/10/2022 12:15 PM [facility] MCHC 33.0 30.8 - 35.9 g/dL 03/10/2022 12:15 PM [facility] Platelet Count 183 150 - 400 10? 3 /uL 03/10/2022 12:15 PM [facility] RDW-SD 42.8 36.0 - 50.0 fL 03/10/2022 12:15 PM [facility] RDW-CV 12.0 11.2 - 14.8 % 03/10/2022 12:15 PM [facility] MPV 11.7 9.4 - 12.9 fL 03/10/2022 12:15 PM [facility] nRBC Absolute 0.02(H) 0 10? 3 /uL 03/10/2022 12:15 PM [facility] nRBC Auto 0.1(H) 0 /100 WBC 03/10/2022 12:15 PM [facility] Blood BLOOD SPECIMEN / Unknown Lab Venipuncture / Unknown 03/10/2022 11:47 AM CDT 03/10/2022 12:07 PM CDT Vicky Silva MD LAB - HEMATOLOGY ORD ERABLES [address] [address], [facility] [phone] * MAGNESIUM BLOOD (03/10/2022 11:47 AM CDT) Magnesium 1.7 1.6 - 2.6 mg/dL 03/10/2022 12:38 PM [facility] Blood BLOOD SPECIMEN / Unknown Lab Venipuncture / Unknown 03/10/2022 11:47 AM CDT 03/10/2022 12:08 PM CDT Vicky Silva MD LAB - CHEMISTRY [facility] Organization Address [facility]/ZIP Co de Phone Number [facility] [address] [place] [address], [facility] [phone] * (ABNORMAL) RENAL FUNCTION PANEL (03/10/2022 11:47 AM CDT) BUN 14 7 - 26 mg/dL 03/10/2022 12:38 PM [facility] Creatinine 0.53(L) 0.71 - 1.16 mg/dL 03/10/2022 12:38 PM [facility] Sodium 140 136 - 145 mmol/L 03/10/2022 12:38 PM [facility] Potassium 3.8 3.5 - 4.5 mmol/L 03/10/2022 12:38 PM [facility] Chloride 105 98 - 107 mmol/L 03/10/2022 12:38 PM [facility] CO2 25 22 - 29 mmol/L 03/10/2022 12:38 PM [facility] Glucose 105 70 - 115 mg/dL 03/10/2022 12:38 PM [facility] Albumin 2.1(L) 3.4 - 5.0 g/dL 03/10/2022 12:38 PM [facility] Calcium 9.3 8.4 - 10.2 mg/dL 03/10/2022 12:38 PM [facility] Phosphorus 2.0(L) 2.8 - 5.1 mg/dL 03/10/2022 12:38 PM [facility] Anion Gap 14 8 - 18 03/10/2022 12:38 PM [facility] BUN/Creatinine Ratio 26(H) 7 - 23 03/10/2022 12:38 PM [facility] Osmolality Calculated 291 270 - 300 mOsm/kg 03/10/2022 12:38 PM [facility] eGFR by CKD-EPI >90 >=90 mL/min/1.7 3 m2 03/10/2022 12:38 PM CDT [facility] Blood BLOOD SPECIMEN / Unknown Lab Venipuncture / Unknown 03/10/2022 11:47 AM CDT 03/10/2022 12:08 PM CDT Vicky Silva MD LAB - CHEMISTRY MARSHAL MEDEROS Performing Organization Address [facility]/ZIP Co de Phone Number [facility] [address] [place] [address], [facility] [phone] * (ABNORMAL) LACOSAMIDE (03/10/2022 11:47 AM CDT) [facility] Lacosamide 16.1(H) 1.0 - 10.0 ug/mL 03/17/2022 3:47 AM CDT [email or web address] ([facility]) Comment: INTERPRETIVE INFORMATION: Lacosamide, Serum or Plasma [...] developed and its performance characteristics determined by [facility]. It has not been cleared or approved by the [place] Food and Drug Administration. This test was performed in a CLIA-certified laboratory and is intended for clinical purposes. Performed By: [facility] [address] [place] [address] Product Managent Intern: Power Milian MD, PhD Blood BLOOD SPECIMEN / Unknown Lab Venipuncture / Unknown 03/10/2022 11:47 AM CDT 03/10/2022 12:03 PM CDT Vicky Silva MD LAB - CHEMISTRY MARSHAL MEDEROS Performing Organization Address City/[facility]/ZIP Co de Phone Number [employer] [facility]) [address] [place] [address] * CLOBAZAM QUANT BLOOD (03/10/2022 11:47 AM CDT) Clobazam 236 30 - 300 ng/mL 03/14/2022 3:29 PM CDT [employer] ([facility]) Comment: INTERPRETIVE INFORMATION: Clobazam and Metabolite, Quant, [...] influenced by drug-drug interactions and by poor RCA4L64 metabolism. ??The metabolite, N-desmethylclobazam has about 20% activity of clobazam. ??Adverse effects may include constipation, somnolence, sedation and skin rash. ??The concomitant use of clobazam with other central nervous system (BEFORE AND AFTER SCHOOL DAYCARE WORKER) depressants may increase the risk of somnolence and sedation. Test developed and characteristics determined by [employer]. See Compliance Statement B: [employer]/CS N-Desmethylclobazam 683 300 - 3000 ng/mL 03/14/2022 3:29 PM CDT [employer] ([facility]) Comment: Performed By: [facility] [address] [place] [address] Product Managent Intern: Power Milian MD, PhD Blood BLOOD SPECIMEN / Unknown Lab Venipuncture / Unknown 03/10/2022 11:47 AM CDT 03/10/2022 12:03 PM CDT Vicky Silva MD LAB - CHEMISTRY MARSHAL MEDEROS [employer] [facility]) [address] [place] [address], [facility] * (ABNORMAL) VANCOMYCIN LEVEL TROUGH (03/10/2022 11:47 AM CDT) Vancomycin Trough 7.7(L) 10.0 - 20.0 ug/mL 03/10/2022 12:38 PM CDT [facility] Blood BLOOD SPECIMEN / Unknown Lab Venipuncture / Unknown 03/10/2022 11:47 AM CDT 03/10/2022 12:08 PM CDT Narrative [facility] - 03/10/2022 12:38 PM CDT See institution protocol. Elmo Ozuna MD LAB - CHEMISTR Y ORDERABLES [facility] [address] [place] [phone], [facility] [phone] * VAS LEFT ARTERIAL DUPLEX LE (03/09/2022 4:34 PM CDT) Anatomical Region Laterality Modality Lower Extremity Intravascular Ul trasound 03/09/2022 3:23 PM CDT Narrative Procedure Note Jose Davila MD - 03/09/2022 Vicky Silva MD VASCULAR LAB ORDERAB LES * VAS ARTERIAL ANKLE ARM INDEX (03/09/2022 4:27 PM CDT) Anatomical Region Laterality Modality Ankle / Foot, Upper Extremity In travascular Ultrasound 03/09/2022 1:18 AM CDT Narrative Procedure Note Jose Davila MD - 03/09/2022 Vicky Silva MD VASCULAR LAB ORDERAB LES * CARDIAC EKG ORDER (03/09/2022 12:07 PM CDT) Narrative 03/09/2022 12:07 PM CDT Ordered by an unspecified provider. 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 Elmo Ozuna MD LAB - MICROBIO LOGY ORDERABLES [facility] MICROBIOLOGY [address] [place] [address], [facility] [phone] * (ABNORMAL) COMPREHENSIVE METABOLIC PANEL (03/09/2022 4:11 AM CDT) [facility] BUN 15 7 - 26 mg/dL 03/09/2022 4:41 AM [facility] Creatinine 0.63(L) 0.71 - 1.16 mg/dL 03/09/2022 4:41 AM [facility] Sodium 144 136 - 145 mmol/L 03/09/2022 4:41 AM [facility] Potassium 4.0 3.5 - 4.5 mmol/L 03/09/2022 4:41 AM [facility] Chloride 100 98 - 107 mmol/L 03/09/2022 4:41 AM [facility] CO2 25 22 - 29 mmol/L 03/09/2022 4:41 AM [facility] Glucose 134(H) 70 - 115 mg/dL 03/09/2022 4:41 AM [facility] Calcium 9.3 8.4 - 10.2 mg/dL 03/09/2022 4:41 AM [facility] Protein Total 6.7 6.0 - 8.3 g/dL 03/09/2022 4:41 AM [facility] Albumin 2.4(L) 3.4 - 5.0 g/dL 03/09/2022 4:41 AM [facility] Bilirubin Total 0.6 0.2 - 1.2 mg/dL 03/09/2022 4:41 AM T [facility] Alkaline Phosphatase 74 40 - 150 U/L 03/09/2022 4:41 AM [facility] ALT 27 5 - 55 U/L 03/09/2022 4:41 AM [facility] AST 75(H) 5 - 34 U/L 03/09/2022 4:41 AM [facility] Anion Gap 23(H) 8 - 18 03/09/2022 4:41 AM [facility] BUN/Creatinine Ratio 24(H) 7 - 23 03/09/2022 4:41 AM [facility] Osmolality Calculated 301(H) 270 - 300 mOsm/kg 03/09/2022 4:41 AM [facility] Albumin/Globulin Ratio 0.6(L) 1.1 - 2.3 03/09/2022 4:41 AM [facility] eGFR by CKD-EPI >90 >=90 mL/min/1.7 3 m2 03/09/2022 4:41 AM [facility] Blood BLOOD SPECIMEN / Unknown Venipuncture / Unknown 03/09/2022 4:11 AM CDT 03/09/2022 4:15 AM CDT Neha Palomino MD LAB - CHEMISTRY [facility] Organization Address City/State/ZIP Co de Phone Number [facility] [address] [place] [phone], [facility] [phone] * (ABNORMAL) PROCALCITONIN LEVEL (03/09/2022 2:00 AM CDT) PROCALCITONIN 1.00(H) <=0.10 ng/mL 03/09/2022 4:06 AM T [facility] Blood BLOOD SPECIMEN / Unknown Venipuncture / Unknown 03/09/2022 2:00 AM CDT 03/09/2022 3:28 AM CDT Narrative [facility] - 03/09/2022 4:06 AM CDT The change in procalcitonin (PCT) [...] Change in Procalcitonin Calculator is available at [email or web address] ?? If clinical picture has not improved and PCT remains high, reevaluate and consider treatment failure or other causes. Neha Palomino MD LAB - CHEMISTRY MARSHAL MEDEROS Performing Organization Address [facility]/ZIP Co de Phone Number [address] [address], [facility] [phone] * CULTURE BLOOD (03/09/2022 2:00 AM CDT) Pathologist [facility] Culture No growth day 5 JELLY 03/14/2022 8:34 AM CDT [facility] MICROBIOLOGY Blood PERIPHERAL BLOOD / Unknown Venipuncture / Unknown 03/09/2022 2:00 AM CDT 03/09/2022 3:28 AM CDT Neha Palomino MD LAB - MICROBIOLOGY Angelito MENDEZ [facility] MICROBIOLOGY [address] [place] [address], [facility] [phone] * (ABNORMAL) DIFFERENTIAL MANUAL (03/09/2022 1:35 AM CDT) WBC (corrected for NRBC) 23.0 10? 3 /uL 03/09/2022 2:34 AM CDT [facility] Total Cell Count 100 03/09/2022 2:34 AM T [facility] Neutrophils Absolute Manual 16.79(H) 1.60 - 7.00 10? 3 /uL 03/09/2022 2:34 AM T [facility] Comment:(BANDS+SEGS) x WBC = NEUT # (ANC) Lymphocyte Absolute Manual 2.07 1.10 - 3.90 10? 3 /uL 03/09/2022 2:34 AM CDT [facility] Monocytes Absolute Manual 4.14(H) 0.26 - 1.07 10? 3 /uL 03/09/2022 2:34 AM CDT [facility] Band % Manual 3 0 - 10 % 03/09/2022 2:34 AM [facility] Neutrophil % Manual 70 35 - 70 % 03/09/2022 2:34 AM [facility] Lymphocyte % Manual 9(L) 20 - 43 % 03/09/2022 2:34 AM [facility] Monocytes % Manual 18(H) 5 - 13 % 03/09/2022 2:34 AM [facility] Platelet Estimate Adequate Adequate 03/09/2022 2:34 AM [facility] Luanne Cells 1+(A) None 03/09/2022 2:34 AM [facility] Blood BLOOD SPECIMEN / Unknown Venipuncture / Unknown 03/09/2022 1:35 AM CDT 03/09/2022 2:00 AM CDT Neha Palomino MD LAB - HEMATOLOGY ORD ERABLES [facility] [address] [place] [address], [place] [phone] * (ABNORMAL) CULTURE BLOOD (03/09/2022 1:35 AM CDT) Culture Growth of Staphylococcus aureus(AA) JELLY 03/14/2022 7:14 PM CDT [facility] MICROBIOLOGY Comment:Staphylococcus aureu s methicillin-susceptible (MSSA) detected by penicillin binding protein immunoassay. Gram Stain Gram-positive cocci in clusters(AA) 03/14/2022 7:14 PM CDT [facility] MICROBIOLOGY Blood BLOOD SPECIMEN / Unknown Venipuncture / Unknown 03/09/2022 1:35 AM CDT 03/09/2022 1:59 AM CDT Narrative [facility]CRO[facility]OLOG[facility] - 03/14/2022 7:14 PM CDT Positive at 18.25hrs. Infectious disease consultation strongly recommended, where available. Organism Antibiotic Method Susceptibility Staphylococcus aureus Clindamycin JELLY 0.25 ug/mL: Susceptible Staphylococcus aureus Doxycycline JELLY <=0.5 ug/mL: Susceptible Staphylococcus aureus Gentamicin JELLY <=0.5 ug/mL: Susceptible Staphylococcus aureus Inducible Clindamy rossy Resistance JELLY NEG ug/mL: Neg Staphylococcus aureus Linezolid JELLY 2 ug/mL: Susceptible Staphylococcus aureus Oxacillin JELLY 0.5 ug/mL: Susceptible Staphylococcus aureus Tetracycline JELLY <=1 ug/mL: Susceptible Staphylococcus aureus Trimethoprim-sulfa methoxa zole JELLY <=10 ug/mL: Susceptible Staphylococcus aureus Vancomycin JELLY 1 ug/mL: Susceptible Comment: Staphylococcus sensitivity to oxacillin predicts susceptibility for nafcillin, ampicillin/sulbactam, amoxicillin/clavulanate, piperacillin/tazobactam, all cephalosporins (except ceftazidime, ceftazidime/avibactam, ceftolozane/tazobactam), and all carbapenems. Neha Palomino MD LAB - MICROBIOLOGY O RDERABLES [facility] MICROBIOLOGY [address] [place] [address], [facility] [phone] * (ABNORMAL) CBC W AUTO DIFFERENTIAL (03/09/2022 1:35 AM CDT) WBC 23.0(H) 3.5 - 10.5 10? 3 /uL 03/09/2022 2:26 AM [facility] RBC 4.18(L) 4.30 - 5.70 10? 6 /uL 03/09/2022 2:26 AM [facility] Hemoglobin 13.6 12.0 - 17.6 g/dL 03/09/2022 2:26 AM [facility] Hematocrit 40.0 35.2 - 51.7 % 03/09/2022 2:26 AM [facility] MCV 95.7 80.7 - 98.3 fL 03/09/2022 2:26 AM [facility] MCH 32.5 26.7 - 34.0 pg 03/09/2022 2:26 AM [facility] MCHC 34.0 30.8 - 35.9 g/dL 03/09/2022 2:26 AM [facility] Platelet Count 160 150 - 400 10? 3 /uL 03/09/2022 2:26 AM [facility] Comment: Checked by peripheral smear. Few fibrin strands visible This is an appended report. ??These results have been appended to a previously preliminary verified report. RDW-SD 43.7 36.0 - 50.0 fL 03/09/2022 2:26 AM [facility] RDW-CV 12.4 11.2 - 14.8 % 03/09/2022 2:26 AM [facility] MPV 03/09/2022 2:26 AM [facility] Comment:Unable to Report Immature Platelet Fraction 03/09/2022 2:26 AM [facility] Comment:Unable to Report' nRBC Absolute 0.00 0 10? 3 /uL 03/09/2022 2:26 AM [facility] nRBC Auto 0.0 0 /100 WBC 03/09/2022 2:26 AM [facility] Blood BLOOD SPECIMEN / Unknown Venipuncture / Unknown 03/09/2022 1:35 AM CDT 03/09/2022 2:00 AM CDT Neha Palomino MD LAB - HEMATOLOGY ORD ERABLES [facility] [address] [place] [address], [facility] [phone] * (ABNORMAL) LACTIC ACID BLOOD (03/09/2022 1:35 AM CDT) Lactic Acid-Stat 3.0(H) <=2.0 mmol/L 03/09/2022 2:22 AM CDT [facility] Blood BLOOD SPECIMEN / Unknown Venipuncture / Unknown 03/09/2022 1:35 AM CDT 03/09/2022 2:00 AM CDT Elmo Ozuna MD LAB - CHEMISTR Y ORDERABLES [address] [address], [facility] [phone] * CT CHEST ABDOMEN PELVIS W CONT (03/08/2022 10:05 PM CDT) Anatomical Region Laterality Modality Chest, Abdomen, Pelvis Computed Tomography 03/08/2022 10:4 4 PM CDT Impressions 03/09/2022 9:27 AM CDT Impression: 1.Dependent left basilar consolidation with mild tree-in-bud opacities. Mild posterior right upper lobe tree-in-bud opacities. This concerning for aspiration pneumonia. 2.Multiple bilateral pulmonary nodules as detailed above including a 1.8 cm spiculated nodule. This may represent a multifocal infection although adenocarcinoma can have a similar appearance. 3 months follow-up is recommended. 3.No acute abnormality in the abdomen or pelvis. > Dictated by Brandee Celestin MD (financial institution vice president). I, John Graham MD have personally reviewed and interpreted this examination/study. > Interpreting Provider: John Graham MD on 03/09/2022 9:27 AM Narrative 03/09/2022 9:27 AM CDT PROCEDURE: ??CT CHEST ABDOMEN PELVIS W CONT, DATE/TIME OF EXAM: ??03/08/2022 10:05 PM, LOCATION ??[facility] INDICATION: R50.9: Fever, unspecified fever cause ADDITIONAL CLINICAL INFORMATION: Ordering Provider Reason For Exam: ??febrile, tachy, source of infection? Belly tenderness COMPARISON: CT angiography abdomen with runoff dated 07/02/2021. TECHNIQUE: CT of the chest, abdomen, and pelvis was performed after the uneventful administration of 100 mL of Isovue 370 intravenous contrast according to standard protocol. Findings: Chest: Lower Neck and Axillae: Normal. Lungs: Mild dependent left basilar consolidation with mild tree-in-bud opacities. Mild posterior right upper lung tree-in-bud opacities. Mild right basilar atelectasis. There is a 3 mm anterior right upper lobe nodule (series 5, image 29). There is a 1.5 x 1.8 cm spiculated nodule in the left upper lobe (series 5, image 49). There is a 4 mm left upper lobe subpleural nodule (series 5, image 37). There is a 1.0 x 0.7 cm left apical nodule (series 5, image 16). No pleural fluid or pneumothorax is present. Heart and Pericardium: The cardiac chambers are normal in size. No pericardial fluid or thickening is present. Mediastinum and Almita: No mediastinal hemorrhage is present. No enlarged lymph nodes are present. Thoracic Vasculature: There is atherosclerotic calcification of the coronary arteries and aorta. Incidental note of a azygous vein. Abdomen/pelvis: Motion artifact. Liver: There is a 1.3 x 1.0 cm arterially hyperattenuating observation in hepatic segment 8 (series 4, image 97), likely representing a flash filling hemangioma. Gallbladder and Bile Ducts: Normal. Spleen: Normal. Pancreas: Normal. Adrenals: Normal. Kidneys: Normal. No renal calculi or hydronephrosis. Gastrointestinal: The stomach and visualized loops of large and small bowel are unremarkable. Normal appendix. Mesentery/Peritoneum/Retroperitoneum: No free intraperitoneal air. No free fluid in the abdomen or pelvis. Pelvis: The bladder is normal. The prostate is enlarged measuring up to 4.4 cm. No pelvic free fluid or enlarged adenopathy. Abdominal Vasculature: Atherosclerotic calcification of the aorta and its branch vessels. Bones: Bone windows demonstrate no suspicious lytic or blastic lesions. The visible osseous structures are intact. Degenerative changes are seen in the spine. There is a chronic deformity of the sternum. Soft tissues: Normal. Procedure Note John Graham MD - 03/09/2022 PROCEDURE: CT CHEST ABDOMEN PELVIS W CONT, DATE/TIME OF EXAM:03/08/2022 10:05 PM, LOCATION [facility] INDICATION: R50.9: Fever, unspecified fever cause ADDITIONAL CLINICAL INFORMATION: Ordering Provider Reason For Exam: febrile, tachy, source of infection? Belly tenderness COMPARISON: CT angiography abdomen with runoff dated 07/02/2021. TECHNIQUE: CT of the chest, abdomen, and pelvis was performed after the uneventful administration of 100 mL of Isovue 370 intravenous contrast according to standard protocol. Findings: Chest: Lower Neck and Axillae: Normal. Lungs: Mild dependent left basilar consolidation with mild [id number]. Mild posterior right upper lung tree-in-bud opacities. Mild rightbasilar atelectasis. There is a 3 mm anterior right upper lobe nodule (series 5, image 29). There is a 1.5 x 1.8 cm spiculated nodule in the left upper lobe (series5, image 49). There is a 4 mm left upper lobe subpleural nodule (series 5, image 37). There is a 1.0 x 0.7 cm left apical nodule (series 5, image16). No pleural fluid or pneumothorax is present. Heart and Pericardium: The cardiac chambers are normal in size. No pericardial fluid orthickening is present. Mediastinum and Almita: No mediastinal hemorrhage is present. No enlarged lymph nodes arepresent. Thoracic Vasculature: There is atherosclerotic calcification of the coronary arteries andaorta. Incidental note of a azygous vein. Abdomen/pelvis: Motion artifact. Liver: There is a 1.3 x 1.0 cm arterially hyperattenuating observation inhepatic segment 8 (series 4, image 97), likely representing a flash filling hemangioma. Gallbladder and Bile Ducts: Normal. Spleen: Normal. Pancreas: Normal. Adrenals: Normal. Kidneys: Normal. No renal calculi or hydronephrosis. Gastrointestinal: The stomach and visualized loops of large and small bowel areunremarkable. Normal appendix. Mesentery/Peritoneum/Retroperitoneum: No free intraperitoneal air. No free fluid in the abdomen or pelvis. Pelvis: The bladder is normal. The prostate is enlarged measuring up to 4.4 cm.No pelvic free fluid or enlarged adenopathy. Abdominal Vasculature: Atherosclerotic calcification of the aorta and its branch vessels. Bones: Bone windows demonstrate no suspicious lytic or blastic lesions. The visible osseous structures are intact. Degenerative changes are seen inthe spine. There is a chronic deformity of the sternum. Soft tissues: Normal. Impression: 1.Dependent left basilar consolidation with mild tree-in-bud opacities. Mild posterior right upper lobe tree-in-bud opacities. This concerningfor aspiration pneumonia. 2.Multiple bilateral pulmonary nodules as detailed above including a 1.8cm spiculated nodule. This may represent a multifocal infection although adenocarcinoma can have a similar appearance. 3 months follow-up is recommended. 3.No acute abnormality in the abdomen or pelvis. > Dictated by Brandee Celestin MD (financial institution vice president). I, John Graham MD have personally reviewed and interpreted this examination/study. > Interpreting Provider: John Graham MD on 03/09/2022 9:27 AM Elizabeth Hernandez MD CT ORDERABLES * SARS-COV-2 (COVID-19)+INFLU A+B PCR RAPID (03/08/2022 9:38 PM CDT) COVID-19 PCR Not detected Not detected 03/08/20 10:21 PM CDT [facility] Influenza A Rapid BILLY Not Detected Not Detected 03/08/2022 10:21 PM CDT [facility] Influenza B BILLY Rapid Not Detected Not Detected 03/08/2022 10:21 PM CDT [facility] Microbiology SPECIMEN FROM NASOPHARYNGEAL STRUCTURE / Unknown Collection / Unknown 03/08/2022 9:38 PM CDT 03/08/2022 9:40 PM CDT [facility] - 03/08/2022 10:21 PM CDT Influenza assay performed by [employer] [...] acid amplification assay performance was validated by [facility]. This test has been authorized [...] this EUA assay are available upon request. Elizabeth Hernandez MD LAB - MICROBIOLOGY O RDERABLES Performing Organization Address [facility]/ZIP Co de Phone Number [address] [address], [facility] [phone] * (ABNORMAL) LACTIC ACID BLOOD REFLEX TO REPEAT (03/08/2022 9:37 PM CDT) Pathologist [facility] Lactic Acid-Stat 2.2(H) <=2.0 mmol/L 03/08/2022 10:06 PM CDT [facility] Blood BLOOD SPECIMEN / Unknown Venipuncture / Unknown 03/08/2022 9:37 PM CDT 03/08/2022 9:42 PM CDT Elizabeth Hernandez MD LAB - CHEMISTRY ORDByron MEDEROS Performing Organization Address [facility]/ZIP Co de Phone Number [address] [address], [facility] [phone] * TROPONIN I (03/08/2022 9:37 PM CDT) Pathologist [facility] Troponin I 0.016 <0.032 ng/mL 03/08/2022 10:17 PM CDT [facility] Blood BLOOD SPECIMEN / Unknown Venipuncture / Unknown 03/08/2022 9:37 PM CDT 03/08/2022 9:42 PM CDT Elizabeth Hernandez MD LAB - CHEMISTRY MARSHAL MEDEROS Performing Organization Address City/[facility]/ZIP Co de Phone Number [address] [address], [place] [phone] * LACTIC ACID REPEAT REFLEX (03/08/2022 5:26 PM CDT) Lactic Acid Repeat Reflex Order LACTIC ACID REPEAT HAS BEEN ORDERED 03/08/2022 7:32 PM CDT [facility] Blood BLOOD SPECIMEN / Unknown Venipuncture / Unknown 03/08/2022 5:26 PM CDT 03/08/2022 6:01 PM CDT Elizabeth Hernandez MD LAB - CHEMISTRY MARSHAL MEDEROS Performing Organization Address [facility] Co de Phone Number [address] [address], [facility] [phone] * (ABNORMAL) LACTIC ACID BLOOD REFLEX TO REPEAT (03/08/2022 5:26 PM CDT) Lactic Acid-Stat 3.3(HH) <=2.0 mmol/L 03/08/2022 6:04 PM CDT [facility] Comment:RESULTS CALLED TO AN D READ BACK BY Cami Robin, RN AT 6:04 PM, 03/08/2022 Blood BLOOD SPECIMEN / Unknown Venipuncture / Unknown 03/08/2022 5:26 PM CDT 03/08/2022 5:38 PM CDT Elizabeth Hernandez MD LAB - CHEMISTRY MARSHAL MEDEROS Performing Organization Address City/[facility]/ZIP Co de Phone Number [address] [address], [place] [phone] * CULTURE URINE (03/08/2022 5:26 PM CDT) Culture Urine No growth (<100 CFU/mL) JELLY 03/09/2022 11:26 PM CDT [facility] Urine URINE SPECIMEN OBTAINED BY CLEAN CATCH PROCEDURE / Unknown Collection / Unknown 03/08/2022 5:26 PM CDT 03/08/2022 5:29 PM CDT Elizabeth Hernandez MD LAB - MICROBIOLOGY O RDERABLES [facility] [address] [place], [place] [address], [facility] [phone] * (ABNORMAL) URINALYSIS REFLEX TO MICROSCOPIC NO CULTURE (03/08/2022 5:26 PM CDT) Color UA Yellow Straw, Yellow 03/08/2022 5:41 PM [facility] Clarity UA Clear Clear 03/08/2022 5:41 PM [facility] Specific [place] UA 1.023 1.005 - 1.030 03/08/2022 5:41 PM [facility] pH UA 6.0 5.0 - 8.0 pH 03/08/2022 5:41 PM [facility] Protein UA 1+(A) Negative 03/08/2022 5:41 PM [facility] Glucose UA 1+(A) Negative 03/08/2022 5:41 PM [facility] Ketone UA Trace(A) Negative 03/08/2022 5:41 PM [facility] Bilirubin UA Negative Negative 03/08/2022 5:41 PM [facility] Blood UA Negative Negative 03/08/2022 5:41 PM [facility] Nitrite UA Negative Negative 03/08/2022 5:41 PM [facility] Leukocyte Esterase Negative Negative 03/08/2022 5:41 PM [facility] Urobilinogen UA 4.0(A) Negative mg/dL 03/08/2022 5:41 PM [facility] RBC UA 3-5 None Seen, 0-2, 3-5 /HPF 03/08/2022 5:41 PM [facility] WBC UA 0-5 None Seen, 0-5 /HPF 03/08/2022 5:41 PM [facility] Squamous Epithelial Cells UA None Seen None Seen, 0-2, 3-5 /HPF 03/08/2022 5:41 PM CDT [facility] Urine URINE SPECIMEN OBTAINED BY CLEAN CATCH PROCEDURE / Unknown Collection / Unknown 03/08/2022 5:26 PM CDT 03/08/2022 5:29 PM CDT Narrative [facility] - 03/08/2022 5:41 PM CDT Elizabeth Hernandez MD LAB - URINALYSIS ORD ERABLES Performing Organization Address City/[facility]/ZIP Co de Phone Number [facility] [address] [place] [address], [place] [phone] * TROPONIN I (03/08/2022 5:26 PM CDT) Troponin I 0.023 <0.032 ng/mL 03/08/2022 7:20 PM CDT [facility] Blood BLOOD SPECIMEN / Unknown Venipuncture / Unknown 03/08/2022 5:26 PM CDT 03/08/2022 5:38 PM CDT Elizabeth Hernandez MD LAB - CHEMISTRY ORDE RABSHILPA Performing Organization Address City/[facility]/ZIP Co de Phone Number [address] [address], [place] [phone] * XR FOOT LEFT 3VW OR MORE (03/08/2022 3:38 PM CDT) Anatomical Region Laterality Modality Ankle / Foot Radiographic Cynthia ging 03/08/2022 3:37 PM CDT Narrative 03/08/2022 4:48 PM CDT PROCEDURE: ??XR FOOT LEFT 3VW OR MORE, DATE/TIME OF EXAM: ??03/08/2022 3:38 PM, LOCATION ??[facility] INDICATION: R50.9: Fever, unspecified fever cause ADDITIONAL [...] noted. Report dictated by Param Eubanks MD (financial institution vice president). Eron Thomason have personally reviewed and interpreted this examination/study. > Interpreting Provider: Eron Payton on 03/08/2022 4:48 PM Procedure Note Eron Payton MD - 03/08/2022 PROCEDURE: XR FOOT LEFT 3VW OR MORE, DATE/TIME OF EXAM: 23:38 PM, LOCATION [facility] INDICATION: R50.9: Fever, unspecified fever cause ADDITIONAL [...] noted. Report dictated by Param Eubanks MD (financial institution vice president). Eron Thomason have personally reviewed and interpreted this examination/study. > Interpreting Provider: Eron Payton on 03/08/2022 4:48 PM Elizabeth Hernandez MD DIAGNOSTIC IMAGING O RDERABLES * XR CHEST 1VW PORTABLE (03/08/2022 3:37 PM CDT) Anatomical Region Laterality Modality Chest Radiographic Cynthia ging 03/08/2022 3:36 PM CDT Narrative 03/08/2022 4:44 PM CDT PROCEDURE: ??XR CHEST 1VW PORTABLE, DATE/TIME OF EXAM: ??03/08/2022 3:14 PM, LOCATION ??[facility] INDICATION: R50.9: Fever, unspecified fever cause ADDITIONAL CLINICAL INFORMATION: Ordering Provider Reason For Exam: ??infection? SOB COMPARISON: 05/01/2021 FINDINGS/IMPRESSION: Mild left basilar atelectasis or airspace disease. A small left pleural effusion cannot be excluded. No pneumothorax. Heart size and mediastinal contours are normal. No acute osseous abnormality. Report dictated by Param Eubanks MD (financial institution vice president). Eron Thomason have personally reviewed and interpreted this examination/study. > Interpreting Provider: Eron Payton on 03/08/2022 4:44 PM Procedure Note Eorn Payton MD - 03/08/2022 PROCEDURE: XR CHEST 1VW PORTABLE, DATE/TIME OF EXAM: 03/08/2022 3:14PM, LOCATION [facility] INDICATION: R50.9: Fever, unspecified fever cause ADDITIONAL CLINICAL INFORMATION: Ordering Provider Reason For Exam: infection? SOB COMPARISON: 05/01/2021 FINDINGS/IMPRESSION: Mild left basilar atelectasis or airspace disease. A small left pleural effusion cannot be excluded. No pneumothorax. Heart size and mediastinal contours are normal. No acute osseous abnormality. Report dictated by Param Eubanks MD (financial institution vice president). Eron Thomason have personally reviewed and interpreted this examination/study. > Interpreting Provider: Eron Payton on 03/08/2022 4:44 PM Elizabeth Hernandez MD DIAGNOSTIC IMAGING O RDERABLES * VALPROIC ACID LEVEL (03/08/2022 3:01 PM CDT) Pathologist [facility] Valproic Acid Total 99 50 - 100 ug/mL 03/08/2022 3:34 PM CDT [facility] Blood BLOOD SPECIMEN / Unknown Venipuncture / Unknown 03/08/2022 3:01 PM CDT 03/08/2022 3:23 PM CDT Elizabeth Hernandez MD LAB - CHEMISTRY [facility] Organization Address City/State/ZIP Co de Phone Number [address] [address], [facility] [phone] * CULTURE BLOOD (03/08/2022 3:01 PM CDT) Culture No growth day 5 JELLY 03/13/2022 7:03 PM CDT [facility] Blood PERIPHERAL BLOOD / Unknown Venipuncture / Unknown 03/08/2022 3:01 PM CDT 03/08/2022 3:11 PM CDT Elizabeth Hernandez MD LAB - MICROBIOLOGY O RDERABLES [facility] [address] [place] [address], [facility] [phone] * LACTIC ACID REPEAT REFLEX (03/08/2022 2:55 PM CDT) Pathologist [facility] Lactic Acid Repeat Reflex Order LACTIC ACID REPEAT HAS BEEN ORDERED 03/08/2022 5:03 PM CDT [facility] Blood BLOOD SPECIMEN / Unknown Venipuncture / Unknown 03/08/2022 2:55 PM CDT 03/08/2022 3:39 PM CDT Elizabeth Hernandez MD LAB - CHEMISTRY MARSHAL MEDEROS [facility] [address] [place] [address], [place] [phone] * (ABNORMAL) DIFFERENTIAL MANUAL (03/08/2022 2:55 PM CDT) [facility] WBC (corrected for NRBC) 20.8 10? 3 /uL 03/08/2022 4:12 PM CDT [facility] Total Cell Count 100 03/08/2022 4:12 PM T [facility] Neutrophils Absolute Manual 15.60(H) 1.60 - 7.00 10? 3 /uL 03/08/2022 4:12 PM T [facility] Comment:(BANDS+SEGS) x WBC = NEUT # (ANC) Lymphocyte Absolute Manual 2.50 1.10 - 3.90 10? 3 /uL 03/08/2022 4:12 PM CDT [facility] Monocytes Absolute Manual 2.70(H) 0.26 - 1.07 10? 3 /uL 03/08/2022 4:12 PM T [facility] Neutrophil % Manual 75(H) 35 - 70 % 03/08/2022 4:12 PM CDT [facility] Lymphocyte % Manual 12(L) 20 - 43 % 03/08/2022 4:12 PM CDT [facility] Monocytes % Manual 13 5 - 13 % 03/08/2022 4:12 PM T [facility] Platelet Estimate Adequate Adequate 03/08/2022 4:12 PM CDT [facility] RBC Morphology Normal 03/08/2022 4:12 PM T [facility] Large Platelet Count Occasional(A ) None 03/08/2022 4:12 PM T [facility] Blood BLOOD SPECIMEN / Unknown Venipuncture / Unknown 03/08/2022 2:55 PM CDT 03/08/2022 3:13 PM CDT Elizabeth Hernandez MD LAB - HEMATOLOGY ORD ERABLES [facility] [address] [place] [address], [facility] [phone] * (ABNORMAL) LEVETIRACETAM LEVEL (03/08/2022 2:55 PM CDT) Levetiracetam 59(H) 10 - 40 ug/mL 03/10/2022 3:00 AM CDT [employer] ([facility]) Comment: INTERPRETIVE INFORMATION: Keppra (Levetiracetam) Therapeutic Range: ??10-40 ug/mL ?Toxic: ??Not well Established Pharmacokinetics of levetiracetam are affected by renal function. Adverse effects may include somnolence, weakness, headache and vomiting. This levetiracetam (Keppra) immunoassay uses the [employer] reagents, which has known cross-reactivity with the drug brivaracetam (Briviact) and may report inaccurate results. Patients transitioning from levetiracetam to brivaracetam or those who are using both medications should not monitor drug concentrations with the [employer] assay. These patients should be monitored using a validated chromatographic methodology that distinguishes between drugs to determine drug concentrations. Performed By: [facility] [address] [place] [id number] [employer] Intern: Power Milian MD, PhD Blood BLOOD SPECIMEN / Unknown Venipuncture / Unknown 03/08/2022 2:55 PM CDT 03/08/2022 3:11 PM CDT Elizabeth Hernandez MD LAB - THERAPEUTIC DR DIAZ MONITORING ORDERABLES [facility]) [address] [place] [address] * (ABNORMAL) COMPREHENSIVE METABOLIC PANEL (03/08/2022 2:55 PM CDT) BUN 21 7 - 26 mg/dL 03/08/2022 3:43 PM [facility] Creatinine 0.87 0.71 - 1.16 mg/dL 03/08/2022 3:43 PM [facility] Sodium 143 136 - 145 mmol/L 03/08/2022 3:43 PM [facility] Potassium 4.0 3.5 - 4.5 mmol/L 03/08/2022 3:43 PM [facility] Chloride 102 98 - 107 mmol/L 03/08/2022 3:43 PM [facility] CO2 29 22 - 29 mmol/L 03/08/2022 3:43 PM [facility] Glucose 113 70 - 115 mg/dL 03/08/2022 3:43 PM [facility] Calcium 9.5 8.4 - 10.2 mg/dL 03/08/2022 3:43 PM [facility] Protein Total 7.3 6.0 - 8.3 g/dL 03/08/2022 3:43 PM [facility] Albumin 2.7(L) 3.4 - 5.0 g/dL 03/08/2022 3:43 PM [facility] Bilirubin Total 0.4 0.2 - 1.2 mg/dL 03/08/2022 3:43 PM [facility] Alkaline Phosphatase 84 40 - 150 U/L 03/08/2022 3:43 PM [facility] ALT 26 5 - 55 U/L 03/08/2022 3:43 PM [facility] AST 74(H) 5 - 34 U/L 03/08/2022 3:43 PM [facility] Anion Gap 16 8 - 18 03/08/2022 3:43 PM [facility] BUN/Creatinine Ratio 24(H) 7 - 23 03/08/2022 3:43 PM [facility] Osmolality Calculated 300 270 - 300 mOsm/kg 03/08/2022 3:43 PM [facility] Albumin/Globulin Ratio 0.6(L) 1.1 - 2.3 03/08/2022 3:43 PM [facility] eGFR by CKD-EPI >90 >=90 mL/min/1.7 3 m2 03/08/2022 3:43 PM [facility] Blood BLOOD SPECIMEN / Unknown Venipuncture / Unknown 03/08/2022 2:55 PM CDT 03/08/2022 3:13 PM CDT Elizabeth Hernandez MD LAB - CHEMISTRY [facility] Organization Address City/State/[facility] Co de Phone Number [facility] [address] [place] [phone], [facility] [phone] * (ABNORMAL) CBC W AUTO DIFFERENTIAL (03/08/2022 2:55 PM CDT) WBC 20.8(H) 3.5 - 10.5 10? 3 /uL 03/08/2022 3:26 PM [facility] RBC 4.43 4.30 - 5.70 10? 6 /uL 03/08/2022 3:26 PM [facility] Hemoglobin 14.3 12.0 - 17.6 g/dL 03/08/2022 3:26 PM [facility] Hematocrit 42.9 35.2 - 51.7 % 03/08/2022 3:26 PM [facility] MCV 96.8 80.7 - 98.3 fL 03/08/2022 3:26 PM [facility] MCH 32.3 26.7 - 34.0 pg 03/08/2022 3:26 PM [facility] MCHC 33.3 30.8 - 35.9 g/dL 03/08/2022 3:26 PM CDT [facility] Platelet Count 211 150 - 400 10? 3 /uL 03/08/2022 3:26 PM CDT [facility] RDW-SD 44.7 36.0 - 50.0 fL 03/08/2022 3:26 PM CDT [facility] RDW-CV 12.4 11.2 - 14.8 % 03/08/2022 3:26 PM CDT [facility] MPV 11.9 9.4 - 12.9 fL 03/08/2022 3:26 PM CDT [facility] nRBC Absolute 0.00 0 10? 3 /uL 03/08/2022 3:26 PM CDT [facility] nRBC Auto 0.0 0 /100 WBC 03/08/2022 3:26 PM CDT [facility] Blood BLOOD SPECIMEN / Unknown Venipuncture / Unknown 03/08/2022 2:55 PM CDT 03/08/2022 3:13 PM CDT Elizabeth Hernandez MD LAB - HEMATOLOGY ORD ERABLES [facility] [address] [place] [phone], [facility] [phone] * (ABNORMAL) CULTURE BLOOD (03/08/2022 2:55 PM CDT) Culture Growth of Staphylococcus aureus(AA) 03/14/2022 7:02 PM CDT [facility] Comment:Staphylococcus aureu s methicillin-susceptible (MSSA) detected by penicillin binding protein immunoassay. Gram Stain Gram-positive cocci in clusters(AA) 03/14/2022 7:02 PM CDT [facility] Blood PERIPHERAL BLOOD / Unknown Venipuncture / Unknown 03/08/2022 2:55 PM CDT 03/08/2022 3:11 PM CDT Narrative [facility] - 03/14/2022 7:02 PM CDT Positive at 14 hr Infectious disease consultation strongly recommended, where available. Refer to previously reported susceptibility testing, specimen number: [id number] Elizabeth Hernandez MD LAB - MICROBIOLOGY O RDERABLES Performing Organization Address City/[facility]/ZIP Co de Phone Number [facility] [address] [place] [address], [facility] [phone] * (ABNORMAL) TROPONIN I (03/08/2022 2:55 PM CDT) Troponin I 0.032(H) <0.032 ng/mL 03/08/2022 3:41 PM CDT [facility] Blood BLOOD SPECIMEN / Unknown Venipuncture / Unknown 03/08/2022 2:55 PM CDT 03/08/2022 3:23 PM CDT Elizabeth Hernandez MD LAB - CHEMISTRY [facility]SH[facility] MEDEROS Performing Organization Address [facility]/ZIP Co de Phone Number [address] [address], [place] [phone] * (ABNORMAL) LACTIC ACID BLOOD REFLEX TO REPEAT (03/08/2022 2:55 PM CDT) Pathologist [facility] Lactic Acid-Stat 2.8(H) <=2.0 mmol/L 03/08/2022 3:39 PM CDT [facility] Blood BLOOD SPECIMEN / Unknown Venipuncture / Unknown 03/08/2022 2:55 PM CDT 03/08/2022 3:13 PM CDT Elizabeth Hernandez MD LAB - CHEMISTRY [facility]SH[facility] MEDEROS Performing Organization Address City/[facility]/ZIP Co de Phone Number [address] [address], [place] [phone] * (ABNORMAL) GLUCOSE - POINT OF CARE (03/08/2022 2:31 PM CDT) Glucose WB/POC 148(H) 70 - 115 mg/dL 03/08/2022 2:32 PM CDT [facility] Specimen Type Cap Fingerstick 2021 2:32 PM CDT [facility] Blood BLOOD SPECIMEN / Unknown 03/08/2022 2:31 PM CDT 03/08/2022 2:32 PM CDT Elizabeth Hernandez MD LAB - POINT OF CARE ORDERABLES Performing Organization Address [facility] Co de Phone Number [facility] [address] [place] [address], [place] [phone] * EKG 12-LEAD (03/08/2022 2:05 PM CDT) Ventricular Rate 123 BPM [facility] Atrial Rate 123 BPM [facility] P-R Interval 126 ms [facility] QRS Duration ms 78 ms [facility] Q-T Interval ms 312 ms [facility] MUSE QTC Calculation (Bezet) 446 ms [facility] MUSE Calculated P Zwolle 88 degrees [facility] MUSE Calculated R [place] 22 degrees [facility] MUSE Calculated T [place]le 93 degrees [facility] MUSE Interpretation EKG SINUS TACHYCARDIA WITH OCCASIONAL PREMATURE VENTRICULAR COMPLEXES POSSIBLE LEFT ATRIAL ENLARGEMENT 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) ABNORMAL ECG WHEN COMPARED WITH ECG OF 30-DEC-2021 11:06, PREMATURE VENTRICULAR COMPLEXES ARE NOW PRESENT VENT. RATE HAS INCREASED BY ??[address] NO LONGER ELEVATED IN INFERIOR LEADS ST NO LONGER ELEVATED IN ANTERIOR LEADS Confirmed by SIRENA MARCELO MD ([id number]) on 03/08/2022 2:48:22 PM [facility] MUSE 03/08/2022 2:05 PM CDT 03/08/2022 2:48 PM CDT Elizabeth Hernandez MD ECG ORDERABLES Performing Organization Address [facility] Co de Phone Number [facility] MUSE documented in this encounter Visit Diagnoses Diagnosis Sepsis without acute organ dysfunction, due to unspecified organism ([facility])- Primary Fever, unspecified fever cause Pneumonia of left lung due to infectious organism, unspecified part of lung Lactic acidosis Acidosis Altered mental status, unspecified altered mental status type Tachycardia Tachycardia, unspecified Acute encephalopathy Encephalopathy, unspecified Bacteremia PAD (peripheral artery disease) (HCC) Unspecified disorders of arteries and arterioles Dry gangrene (HCC) Gangrene Protein-calorie malnutrition, unspecified severity ([facility]) Sepsis without acute organ dysfunction ([facility]) Bacteremia Pneumonia Pneumonia, organism unspecified Epilepsy, unspecified, not intractable, without status epilepticus (CMS/HCC) Ulcer of left foot (HCC) Ulcer of other part of foot PAD (peripheral artery disease) (HCC) Unspecified disorders of arteries and arterioles Protein calorie malnutrition (HCC) Unspecified protein-calorie malnutrition History of CVA (cerebrovascular accident) Transient ischemic attack (TIA), and cerebral infarction without residual deficits Hypertension Unspecified essential hypertension Malnutrition, unspecified type (HCC) documented in this encounter Administered Medications Inactive Administered Medications - up to 3 most recent administrations Medication Order MAR Action Action Date Dose Rate Site 0.9% NaCl injection 1-10 mL 1-10 mL, Intracatheter, PRN, Other, peripheral line flush, Starting on Tue03/08/22 at 1435, Until Marian 04/01/22 at 1428, Flush peripheral IV catheter with 1-10 mL of normal saline before and after medications and prn to clear blood from the line or to verify patency. $ Given 03/16/2022 1:48 AM CDT 10 mL 0.9% NaCl injection 3 mL 3 mL, Intracatheter, EVERY 8 HOURS, First dose on Tue03/08/22 at 1515, Until Discontinued, Flush peripheral IV catheter with 3 mL of normal saline every 8 hours. $ Given 03/31/2022 3:20 PM CDT 3 mL $ Given 03/31/2022 5:18 AM CDT 3 mL $ Given 03/30/2022 1:39 PM CDT 3 mL acetaminophen (Tylenol) tablet 650 mg 650 mg, Enteral Tube, 3 TIMES DAILY, First dose (after last modification) on Marian 03/25/22 at 0900, Until Discontinued, Patient preference for lesser PRN pain meds may be honored when the patient requests a less strong medication, a lower dose, or a less intrusive route of administration when the lesser drug, dose and route have been ordered for the patient. This patient request must be documented in the MAR. $ Given 04/01/2022 9:52 AM CDT 650 mg G Tube $ Given 03/31/2022 9:12 PM CDT 650 mg G Tube $ Given 03/31/2022 3:19 PM CDT 650 mg G Tube acetaminophen (Tylenol) tablet 650 mg 650 mg, Enteral Tube, EVERY 4 HOURS PRN, Fever, Mild Pain, Headache, Starting on Tue03/26/22 at 0736, Until Tue04/01/22 at 1428, Patient preference for lesser PRN pain meds may be honored when the patient requests a less strong medication, a lower dose, or a less intrusive route of administration when the lesser drug, dose and route have been ordered for the patient. This patient request must be documented in the MAR. $ Given 03/31/2022 3:48 AM CDT 650 mg G Tube $ Given 03/30/2022 4:32 PM CDT 650 mg G Tube artificial tears ophthalmic solution 1 drop 1 drop, Each Eye, 3 TIMES DAILY PRN, Dry Eyes, Starting on Tue03/11/22 at 0953, Until Tue04/01/22 at 1428 aspirin chew tablet 81 mg 81 mg, Enteral Tube, DAILY, First dose (after last modification) on Tue03/26/22 at 0900, Until Discontinued $ Given 04/01/2022 9:52 AM CDT 81 mg G Tube $ Given 03/31/2022 9:57 AM CDT 81 mg G Tube $ Given 03/30/2022 9:13 AM CDT 81 mg G Tube atorvastatin (Lipitor) tablet 40 mg 40 mg, Enteral Tube, DAILY, First dose (after last modification) on Tue03/26/22 at 0900, Until Discontinued $ Given 04/01/2022 9:53 AM CDT 40 mg G Tube $ Given 03/31/2022 9:57 AM CDT 40 mg G Tube $ Given 03/30/2022 9:14 AM CDT 40 mg G Tube bisacodyl (Dulcolax) suppository 10 mg 10 mg, Rectal, DAILY PRN, Constipation, Starting on Tue03/25/22 at 1845, Until Tue04/01/22 at 1428, Second-line PRN option for constipation cloBAZam (Onfi) tablet 10 mg 10 mg, Enteral Tube, 2 TIMES DAILY, First dose on Tue03/26/22 at 1100, Until Discontinued $ Given 04/01/2022 9:53 AM CDT 10 mg G Tube $ Given 03/31/2022 9:12 PM CDT 10 mg G Tube $ Given 03/31/2022 9:57 AM CDT 10 mg G Tube enoxaparin (Lovenox) injection 40 mg 40 mg, Subcutaneous, DAILY, First dose on Tue03/30/22 at 1915, Until Discontinued, (for prefilled syringes) do not expel air bubble from the syringe prior to the injection Remind Patient to not rub injection site. Could cause hematoma. $ Given 04/01/2022 9:54 AM CDT 40 mg Ab dominal Tissue $ Given 03/31/2022 9:58 AM CDT 40 mg Ab dominal Tissue $ Given 03/30/2022 9:02 PM CDT 40 mg Ab dominal Tissue folic acid (Folvite) tablet 1 mg 1 mg, Enteral Tube, DAILY, First dose (after last modification) on Tue03/26/22 at 0900, Until Discontinued $ Given 04/01/2022 9:53 AM CDT 1 mg G Tube $ Given 03/31/2022 9:58 AM CDT 1 mg G Tube $ Given 03/30/2022 9:14 AM CDT 1 mg G Tube lacosamide (Vimpat) tablet 200 mg 200 mg, Enteral Tube, 2 TIMES DAILY, First dose (after last modification) on Tue03/26/22 at 0900, Until Discontinued $ Given 04/01/2022 9:52 AM CDT 200 mg G Tub e $ Given 03/31/2022 9:13 PM CDT 200 mg G Tube $ Given 03/31/2022 9:57 AM CDT 200 mg G Tube levETIRAcetam (Keppra) tablet 2,000 mg 2,000 mg, Enteral Tube, 2 TIMES DAILY, First dose on Tue03/26/22 at 0900, Until Discontinued, Do not crush or chew because of TASTE only. $ Given 04/01/2022 9:53 AM CDT 2,000 m g G Tube $ Given 03/31/2022 9:12 PM CDT 2,000 mg G Tube $ Given 03/31/2022 9:57 AM CDT 2,000 mg G Tube oxyCODONE (Roxicodone) oral solution 2.5 mg 2.5 mg, Enteral Tube, EVERY 6 HOURS PRN, Moderate Pain, Severe Pain, Starting on Tue03/26/22 at 0730, Until Marian 04/01/22 at 1428, Patient preference for lesser PRN pain meds may be honored when the patient requests a less strong medication, a lower dose, or a less intrusive route of administration when the lesser drug, dose and route have been ordered for the patient. This patient request must be documented in the MAR. $ Given 03/31/2022 12:07 AM CDT 2.5 mg G Tu be $ Given 03/30/2022 5:19 AM CDT 2.5 mg G Tube $ Given 03/28/2022 12:07 PM CDT 2.5 mg G Tube perflutren lipid microsphere (Definity) injection 0.5 mL 0.5 mL, Intravenous, INTRA-PROCEDURE MULTIPLE, 6 doses, Starting on Tue03/11/22 at 1320, Until Tue04/01/22 at 1428, For Echo Procedure - Per Protocol Give slowly Shake well before using. polyethylene glycol 3350 (Miralax) packet 17 g 17 g, Enteral Tube, DAILY PRN, Constipation, Starting on Tue03/25/22 at 1845, Until Tue04/01/22 at 1428, First-line PRN option for constipation Mix in 8 ounces of water, juice, soda, coffee or tea prior to administration tamsulosin (Flomax) capsule 0.4 mg 0.4 mg, Oral, DAILY, First dose on Tue03/09/22 at 0900, Until Discontinued, At the same time every day after a meal. Can be opened and given via the FT Do not crush, chew $ Given 04/01/2022 9:52 AM CDT 0.4 mg $ Given 03/31/2022 9:57 AM CDT 0.4 mg $ Given 03/30/2022 9:14 AM CDT 0.4 mg thiamine (Vitamin B-1) tablet 100 mg 100 mg, Enteral Tube, DAILY, First dose on Tue03/26/22 at 0900, Until Discontinued $ Given 04/01/2022 9:53 AM CDT 100 mg G Tub e $ Given 03/31/2022 9:57 AM CDT 100 mg G Tube $ Given 03/30/2022 9:13 AM CDT 100 mg G Tube valproic acid (Depakene) solution 500 mg 500 mg, Enteral Tube, 4 TIMES DAILY, First dose (after last modification) on Tue03/26/22 at 1100, Until Discontinued $ Given 04/01/2022 9:53 AM CDT 500 mg G Tub e $ Given 04/01/2022 4:31 AM CDT 500 mg G Tube $ Given 03/31/2022 9:11 PM CDT 500 mg G Tube documented in this encounter Active and Recently Administered Medications Times are shown in CDT. Scheduled Medication Order 03/30/2022 03/31/2022 04/01/2022 0.9% NaCl injection 3 mL(Linked Group 1) 3 mL, Intracatheter, EVERY 8 HOURS, First dose on 03/08/22 at 1515, Until Discontinued, Flush peripheral IV catheter with 3 mL of normal saline every 8 hours. 0628 ($ Given - Provider: Sofía Iraheta RN)1339 ($ Given - Provider: Nano Pelaez RN)2103 (Not Administered - Provider: Angelita Jarrett RN - Reason: Loss of Access) 0518 ($ Given - Provider: Angelita Jarrett RN)1520 ($ Given - Provider: Denisse Conley RN)2319 (Not Administered - Provider: Ankur Shen RN - Reason: See Comments - Comment: task dup) 0604 (Not Administered - Provider: Ankur Shen RN - Reason: See Comments - Comment: already flushed) acetaminophen (Tylenol) tablet 650 mg 650 mg, Enteral Tube, 3 TIMES DAILY, First dose (after last modification) on Marian 03/25/22 at 0900, Until Discontinued, Patient preference for lesser PRN pain meds may be honored when the patient requests a less strong medication, a lower dose, or a less intrusive route of administration when the lesser drug, dose and route have been ordered for the patient. This patient request must be documented in the MAR. 0912 ($ Given - Provider: Nano Pelaez RN)1338 ($ Given - Provider: Nano Pelaez RN)2102 ($ Given - Provider: Angelita Jarrett RN) 0957 ($ Given - Provider: Denisse Conley RN)1519 ($ Given - Provider: Denisse Conley RN)2112 ($ Given - Provider: Ankur Shen RN) 0952 ($ Given - Provider: Denisse Conley RN) aspirin chew tablet 81 mg 81 mg, Enteral Tube, DAILY, First dose (after last modification) on Tue03/26/22 at 0900, Until Discontinued 912 ($ Given - Provider: Nano Pelaez RN) 0957 ($ Given - Provider: Denisse Conley RN) 0952 ($ Given - Provider: Denisse Conley RN) atorvastatin (Lipitor) tablet 40 mg 40 mg, Enteral Tube, DAILY, First dose (after last modification) on Tue03/26/22 at 0900, Until Discontinued 913 ($ Given - Provider: Nano Pelaez RN) 0957 ($ Given - Provider: Denisse Conley RN) 0953 ($ Given - Provider: Denisse Conley RN) cloBAZam (Onfi) tablet 10 mg 10 mg, Enteral Tube, 2 TIMES DAILY, First dose on Tue03/26/22 at 1100, Until Discontinued 951 ($ Given - Provider: Nohemi Norman RN)2102 ($ Given - Provider: Angelita Jarrett RN) 0957 ($ Given - Provider: Denisse Conley RN)2111 ($ Given - Provider: Ankur Shen RN) 0953 ($ Given - Provider: Denisse Conley RN) enoxaparin (Lovenox) injection 40 mg 40 mg, Subcutaneous, DAILY, First dose on Tue03/30/22 at 1915, Until Discontinued, (for prefilled syringes) do not expel air bubble from the syringe prior to the injection Remind Patient to not rub injection site. Could cause hematoma. 2101 ($ Given - Provider: Angelita Jarrett RN) 09 ($ Given - Provider: Denisse Conley RN) 0954 ($ Given - Provider: Denisse Conley RN) folic acid (Folvite) tablet 1 mg 1 mg, Enteral Tube, DAILY, First dose (after last modification) on Tue03/26/22 at 0900, Until Discontinued 913 ($ Given - Provider: Nano Pelaez RN) 0958 ($ Given - Provider: Denisse Conley RN) 0953 ($ Given - Provider: Denisse Conley RN) lacosamide (Vimpat) tablet 200 mg 200 mg, Enteral Tube, 2 TIMES DAILY, First dose (after last modification) on Tue03/26/22 at 0900, Until Discontinued 909 ($ Given - Provider: Nano Pelaez RN)2102 ($ Given - Provider: Angelita Jarrett RN) 09 ($ Given - Provider: Denisse Conley RN)2112 ($ Given - Provider: Ankur Shen RN) 0952 ($ Given - Provider: Denisse Conley RN) levETIRAcetam (Keppra) tablet 2,000 mg 2,000 mg, Enteral Tube, 2 TIMES DAILY, First dose on Tue03/26/22 at 0900, Until Discontinued, Do not crush or chew because of TASTE only. 911 ($ Given - Provider: Nano Pelaez RN)2102 ($ Given - Provider: Angelita Jarrett RN) 09 ($ Given - Provider: Denisse Conley RN)2111 ($ Given - Provider: Ankur Shen RN) 0953 ($ Given - Provider: Denisse Conley RN) perflutren lipid microsphere (Definity) injection 0.5 mL 0.5 mL, Intravenous, INTRA-PROCEDURE MULTIPLE, 6 doses, Starting on Tue03/11/22 at 1320, Until Tue04/01/22 at 1428, For Echo Procedure - Per Protocol Give slowly Shake well before using. tamsulosin (Flomax) capsule 0.4 mg 0.4 mg, Oral, DAILY, First dose on Tue03/09/22 at 0900, Until Discontinued, At the same time every day after a meal. Can be opened and given via the FT Do not crush, chew 913 ($ Given - Provider: Nano Pelaez RN) 0957 ($ Given - Provider: Denisse Conley RN) 0952 ($ Given - Provider: Denisse Conley RN) thiamine (Vitamin B-1) tablet 100 mg 100 mg, Enteral Tube, DAILY, First dose on Tue03/26/22 at 0900, Until Discontinued 912 ($ Given - Provider: Nano Pelaez RN) 0957 ($ Given - Provider: Denisse Conley RN) 0953 ($ Given - Provider: Denisse Conley RN) valproic acid (Depakene) solution 500 mg 500 mg, Enteral Tube, 4 TIMES DAILY, First dose (after last modification) on Tue03/26/22 at 1100, Until Discontinued 0408 ($ Given - Provider: Sofía Iraheta RN - Comment: re assign time of administration from oooo to 0400 next administration adjusted to 10AM)0631 (Not Administered - Provider: Sofía Iraheta RN - Reason: See Comments - Comment: rescedule next administration)0911 ($ Given - Provider: Nano Pelaez RN)1633 ($ Given - Provider: Nano Pelaez RN)211 ($ Given - Provider: Angelita Jarrett RN) 0348 ($ Given - Provider: Angelita Jarrett RN)0957 ($ Given - Provider: Denisse Conley RN)1519 ($ Given - Provider: Denisse Conley RN)2111 ($ Given - Provider: Ankur Shen RN) 0431 ($ Given - Provider: Ankur Shen RN)0953 ($ Given - Provider: Denisse Conley RN) PRN Medication Order 03/30/2022 03/31/2022 04/01/2022 0.9% NaCl injection 1-10 mL(Linked Group 1) 1-10 mL, Intracatheter, PRN, Other, peripheral line flush, Starting on 03/08/22 at 1435, Until Marian 04/01/22 at 1428, Flush peripheral IV catheter with 1-10 mL of normal saline before and after medications and prn to clear blood from the line or to verify patency. acetaminophen (Tylenol) tablet 650 mg 650 mg, Enteral Tube, EVERY 4 HOURS PRN, Fever, Mild Pain, Headache, Starting on Tue03/26/22 at 0736, Until Marian 04/01/22 at 1428, Patient preference for lesser PRN pain meds may be honored when the patient requests a less strong medication, a lower dose, or a less intrusive route of administration when the lesser drug, dose and route have been ordered for the patient. This patient request must be documented in the MAR. 163 ($ Given - Provider: Nano Pelaez RN) 034 ($ Given - Provider: Angelita Jarrett RN) artificial tears ophthalmic solution 1 drop 1 drop, Each Eye, 3 TIMES DAILY PRN, Dry Eyes, Starting on Marian 03/11/22 at 0953, Until Marian 04/01/22 at 1428 bisacodyl (Dulcolax) suppository 10 mg 10 mg, Rectal, DAILY PRN, Constipation, Starting on Tue03/25/22 at 1845, Until Tue04/01/22 at 1428, Second-line PRN option for constipation oxyCODONE (Roxicodone) oral solution 2.5 mg(Linked Group 2) 2.5 mg, Enteral Tube, EVERY 6 HOURS PRN, Moderate Pain, Severe Pain, Starting on Tue03/26/22 at 0730, Until Tue04/01/22 at 1428, Patient preference for lesser PRN pain meds may be honored when the patient requests a less strong medication, a lower dose, or a less intrusive route of administration when the lesser drug, dose and route have been ordered for the patient. This patient request must be documented in the MAR. 518 ($ Given - Provider: Sofía Iraheat RN - Comment: pain in R toe 01/06) 0007 ($ Given - Provider: Angelita Jarrett RN) polyethylene glycol 3350 (Miralax) packet 17 g 17 g, Enteral Tube, DAILY PRN, Constipation, Starting on Tue03/25/22 at 1845, Until Marian 04/01/22 at 1428, First-line PRN option for constipation Mix in 8 ounces of water, juice, soda, coffee or tea prior to administration Linked Groups Order Group 1: SALINE LOCK, INSERT AND MAINTAIN (CANCELED) Routine, CONTINUOUS, Starting on Tue03/08/22 at 1445, Until Specified, New collection, Task Completed: Yes And 0.9% NaCl injection 3 mLJump to med 3 mL, Intracatheter, EVERY 8 HOURS, First dose on Tue03/08/22 at 1515, Until Discontinued, Flush peripheral IV catheter with 3 mL of normal saline every 8 hours. And 0.9% NaCl injection 1-10 mLJump to med 1-10 mL, Intracatheter, PRN, Other, peripheral line flush, Starting on Tue03/08/22 at 1435, Until Tue04/01/22 at 1428, Flush peripheral IV catheter with 1-10 mL of normal saline before and after medications and prn to clear blood from the line or to verify patency. Group 2: oxyCODONE (Roxicodone) oral solution 2.5 mgJump to med 2.5 mg, Enteral Tube, EVERY 6 HOURS PRN, Moderate Pain, Severe Pain, Starting on 03/26/22 at 0730, Until Marian 04/01/22 at 1428, Patient preference for lesser PRN pain meds may be honored when the patient requests a less strong medication, a lower dose, or a less intrusive route of administration when the lesser drug, dose and route have been ordered for the patient. This patient request must be documented in the MAR. 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
--- OUTSIDE RECORDS SUMMARY | 2024-06-08 05:39 | XMS_ITS | Encounter Summary ---
Author Organization [facility] Health Address [address] [place] [address] Care Team Providers Care Director On Air Name Role Phone Elizabeth Sullivan RN Unavailable [phone] Joyce Luevano CAPITAL EQUIPMENT SPECIALIST-ARCHITECTURAL SUPERINTENDENT Primary Care Provider [phone] Reason for Visit * Auth/Cert Specialty Diagnoses / Procedures Referred By Contkatarzyna t Referred To Contact Procedures CHRONIC VIRAL HEPATITIS LIVER FIBROSIS Referral ID Status Reason Start Date Expiration Date Visits Re quested Visits Authorized [id number] 1 1 Encounter Details Date Type Department Care Team (Late st Contact Info) Description 03/25/2022 4:20 PM CDT Anesthesia Event [facility] [address] [place] [address] Aristeo Sanchez MD [address] [place] [address] [place] [id number] Anesthesia Record Procedure Summary Procedure Name Responsible Anesthesiologist Anesthesia Start Time Anesthesia Stop Time ESOPHAGOGASTRODUODENOSCOPY ( EGD) DIAGNOSTIC with PEG Placement (Abdomen) Aristeo Sanchez MD 03/25/22 1620 03/25/22 1717 Events Date Time Event Comment 03/25/2022 1607 1620 Pt In Room 1620 An Start 1620 An Start Data 1628 PT Reassessment 1630 Anes Ready 1631 Induction 1631 An Intubation 1632 Quick Note Sevo on @ 0.8 1633 Time Out Anesthesia part icipated in timeout at the time documented in the record by nursing 1635 Proc Start 1635 Quick Note Mac Sevo 1.1 % not tracking on Epic maintained until able to troubleshoot computer tracking method 1702 Proc Stop 1717 An Emergence 1717 Extubation 1717 an stop data 1717 Pt out of Room 1717 ANPTO2 1717 An Stop 1717 Electnc Sig This record is electronically signed by the providers listed under staff. Meds Name Total ceFAZolin 2,000 mg IVPB 2 g fentaNYL 100 mcg/2ml injection 100 mcg lidocaine PF 2% 50 mg propofol 200mg/20mL injection 200 mg succinylcholine 20 mg/mL injection 100 m g phenylephrine 100 mcg/mL syringe 400 mcg ondansetron 4mg/2mL injection 4 mg * Agents Name Insp. N2O Exp. Sevoflurane Exp. N2O O2 Flow - Auxiliary O2 Air Insp. Sevoflurane * Blood No blood administrations on file. Lines, Drains, and Airways Type Details Placement Removal Other Wound 03/08/22; Yes; Left; Foot; 04/01/22; 1921; Resolved date unknown, not present on admission 03/08/22 0000 by Cami Robin, ALFRED 04/01/221921 by Generic, Auto Release Procedural Site (Incision) 03/15/22; 1018; Left; Leg; 04/01/22; 192103/15/22 1018 by Angela Cortes RN 04/01/221921 by Generic, Auto Release Other Wound 03/18/22; 1306; No; Medial; Sacral/Coccyx; 04/01/22; 192103/18/22 1306 by Libertad Small RN 04/01/221921 by Generic, Auto Release Peripheral IV Date: 03/22/22; Time : 1754; Orientation: Posterior, Proximal, Right; Placed By: Rachel Alvarez RN; Tolerance: Well 03/22/22 1754 by Rachel Alvarez RN 03/25/22 1744 by Yleena Mcnamara RN Peripheral IV Date: 03/24/22; Time : 0610; Orientation: Left, Posterior; Placed By: rohit lezama RN; Tolerance: Well 03/24/22 0610 by Rena Lezama RN 03/31/22 0000 by Angelita Jarrett, ALFRED RETIRED Condom Urinary Catheter 03/24/22; 1030; Medium; Well; 03/29/22; 0700 03/24/22 1030 by Snow Ojeda RN 03/29/22 0700 by Apple Lovell RN Peripheral IV Date: 03/25/22; Time : 1522; Orientation: Anterior, Right; Placed By: TEAGAN SIMON; Tolerance: Well 03/25/22 1522 by Geri Hernandez RN 03/31/22 0200 by Angelita Jarrett RN ETT Date: 03/25/22; Time : 1631; Placed By: GABRIELLA Arndt; Vent: mask not attempted; Induction: Standard IV, Rapid Sequence; Blade Type: King; Blade Size: 4; Laryngoscopy View: Grade 2 (partial cords); Intubation Adjuncts: Stylet; Tube: Endotracheal Tube; Placement: Oral; Tube Type: Cuffed-inflated; Tube Size(FR): 7 FR; Depth of Insertion: 24 CM; Measured From: lips; Attempts: 1; Cuff Infated: Air; Verified By: Direct visualization, Bilateral breath sounds, Chest Auscultation, CO2 Monitor 03/25/22 1631 by Yelena Grire APRN-CRNA 03/25/22 1717 by Yelena Grier APRN-CRNA Enteral - 03/25/22; 1654; Werner Ann MD; PEG; Abdomen, Midline, Upper; 24; Well; 12/14/22; 1556; Dr. Payton; Other (Comments) (conversion to gj) 03/25/22 1654 by Lila Nguyễn, ALFRED 12/14/22 1556 by Tiffani Moreno, ALFRED documented in this encounter Social History Tobacco [...] money to buy more. Never true 03/10/20 Within the past 12 months, t he [...] as of this encounter Progress Notes * Jayy Son MD - 03/25/2022 5:53 PM CDT ANESTHESIA POSTOP EVALUATION NOTE Procedure: ESOPHAGOGASTRODUODENOSCOPY (EGD) DIAGNOSTIC with PEG Placement (Abdomen) Bi Tabor is a 62 year old male Patient Vitals for the past 6 hrs: BP Temp Pulse Resp SpO2 Pain Rating Score #1 Pain Scale/Observation 03/25/22 1525 150/93 97.4 ??F (36.3 ??C) 100 19 98 % 0 N 03/25/22 172 106/72 96.8 ??F (36 ??C) 87 15 100 % -- B 03/25/221729 -- -- 86 17 100 % -- -- 03/25/221734 109/74 -- 89 16 100 % -- -- 03/25/22 1740 95/67 -- 93 17 96 % -- -- Anesthesia Type: general ETT Pre-op Diagnosis Codes: * Malnutrition, unspecified type (CMS/HCC) [E46] Mental Status: neurologic status has returned to preoperative level Neuro Status: other - please comment Respiratory Function: natural Cardiac Function: stable Postop Pain: other - please comment Postop Hydration: adequate Postop Nausea: none Assessment: no apparent anesthetic complications, patient tolerated procedure well and no evidence of recall Patient Disposition: Follow Up Needed Additional Comments: Patient with hx of alzhiemers and decreased MS, unable to answer questions COMPLICATIONS: There were no known notable events for this encounter. * Aristeo Sanchez MD - 03/25/2022 3:42 PM CDT ANESTHESIA PREOPERATIVE EVALUATION NOTE Procedure: ESOPHAGOGASTRODUODENOSCOPY (EGD) DIAGNOSTIC with PEG Placement (Abdomen) NPO status: Since Midnight (03/25/2022 3:23 PM) Vitals: Patient Vitals for the past 6 hrs: BP Temp Pulse Resp SpO2 Pain Rating Score #1 03/25/22 1525 150/93 97.4 ??F (36.3 ??C) 100 19 98 % 0 03/25/22 1112 (!) 140/100 -- (!) 114 16 100 % -- LMP: No LMP for male patient. OB Status: unknown ANESTHESIA PRE-EVALUATION NOTE History of Present Illness: HPI: This is a 62 year old male with pmh of htn, CVA, HLD, alzheimer, and epilepsy brought to hospital after patient's family noted that he has worsening mental status at [facility]. Presents todayfor above named procedure. ROS unable to perfom due to pt's altered cognition. The patient is a current non-smoker. Physical Exam: Airway/Mallampati Score: II Mouth Opening Distance: 3 fingerwidths Neck ROM: limited TM Distance: > 3 FB Teeth: poor dentition Heart: normal - S1 S2 Lungs: clear to ausculation bilaterally Review of Systems: Renal Disease: No Diagnostic [...] ANESTHESIA PLAN ASA Score: 4 NPO Status: No solids since midnight and No liquids within 2 hours Anesthesia Plan: general ETT Planned Induction: intravenous Planned Postop Destination: PACU Anesthetic plan was discussed with: family Anesthetic Plan discussion was: Consented Use of blood products were discussed with: family Use of blood product discussion was: Consented The patient's procedural Anesthetic Plan was discussed with the esl instructional assistant, anesthesiologist, CAR PRE COOLER and resident. BMI, Height, Weight Tobacco History Estimated body mass index is 20.34 kg/m?? as calculated from the following: Height as of this encounter: 1.829 m (6'). Weight as of this encounter: 68 kg (150 lb). Social History Tobacco Use Smoking Status [...] have been marked as taking for the 03/08/22 encounter (Hospital Encounter). Current Facility-Administered Medications Medication Dose Last Admin ??? 0.9% NaCl 3 mL 3 mL at 03/25/22 1427 And ??? 0.9% NaCl 1-10 mL 10 mL at 03/16/22 0148 ??? acetaminophen 1,000 mg Stopped at 03/25/22 0711 ??? acetaminophen 650 mg ??? artificial tears 1 drop ??? aspirin 81 mg 81 mg at 03/22/22 0913 ??? atorvastatin 40 mg 40 mg at 03/22/22 0914 ??? bisacodyl 10 mg 10 mg at 03/24/22 0806 ??? ceFAZolin 2 g Stopped at 03/25/22 0812 ??? folic acid 1 mg 1 mg at 03/22/22 0913 ??? hydrALAZINE 10 mg 10 mg at 03/25/22 0736 ??? lacosamide 200 mg 200 mg at 03/25/22 0813 ??? levETIRAcetam 2,000 mg Stopped at 03/25/22 0905 ??? LORazepam 0.5 mg 0.5 mg at 03/25/22 1427 ??? oxyCODONE 2.5 mg ??? perflutren lipid microsphere 0.5 mL ??? polyethylene glycol 3350 17 g 17 g at 03/22/22 0915 ??? polyethylene glycol 3350 17 g ??? PPN - PERIPHERAL LINE - ADULT Rate Verify at 03/25/22 0733 ??? tamsulosin 0.4 mg 0.4 mg at 03/22/22 0913 ??? thiamine 100 mg 100 mg at 03/25/22 0813 ??? valproate (Depacon) custom in 50 mL IVPB 500 mg Stopped at 03/25/22 1300 Allergies: Allergies Allergen Reactions ??? Clonazepam Psychiatric hallucinations Relevant Problems Neuro/Psych (+) Seizures ([facility]/HCC) Pulmonary (+) Pneumonia Problem List: Patient Active Problem List Diagnosis Date Noted ??? COVID-19 04/14/2021 Priority: High ??? History of CVA (cerebrovascular accident) 12/11/2020 Priority: High ??? Cognitive communication deficit 08/25/2020 Priority: High ??? Dysphagia, oropharyngeal phase 08/25/2020 Priority: High ??? Difficulty in walking, not elsewhere classified 05/24/2020 Priority: High ??? Muscle weakness (generalized) 05/24/2020 Priority: High ??? Epilepsy, unspecified, not intractable, without status epilepticus ([facility]) 05/25/2019 Priority: High ??? Hemiplegia and 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-dominant side ([facility]) 05/25/2019 Priority: High ??? Alzheimer's disease with early onset ([facility]) 05/17/2019 Priority: High ??? Paroxysmal tachycardia, unspecified ([facility]) 05/16/2019 Priority: High ??? Alcohol abuse, uncomplicated 08/13/2015 Priority: High ??? Benign neoplasm of prostate 06/26/2015 Priority: High ??? Other specified rheumatoid arthritis, unspecified site ([facility]) 06/26/2015 Priority: High ??? Syncope and collapse 06/26/2015 Priority: High ??? Bacteremia 03/11/2022 Priority: Not Prioritized ??? Pneumonia 03/11/2022 Priority: Not Prioritized ??? Ulcer of left foot ([facility]) 03/11/2022 Priority: Not Prioritized ??? PAD (peripheral artery disease) ([facility]) 03/11/2022 Priority: Not Prioritized ??? Protein calorie malnutrition ([facility]) 03/11/2022 Priority: Not Prioritized ??? Sepsis without acute organ dysfunction ([facility]) 03/08/2022 Priority: Not Prioritized ??? Status epilepticus ([facility]) 12/30/2021 Priority: Not Prioritized ??? Acute encephalopathy 12/30/2021 Priority: Not Prioritized ??? Seizures ([facility]) 08/13/2020 Priority: Not Prioritized ??? Therapeutic procedure Priority: Not Prioritized ??? Cerebrovascular accident ([facility]) 06/13/2019 Priority: Not Prioritized ??? Insomnia 06/13/2019 Priority: Not Prioritized ??? Low back pain 06/13/2019 Priority: Not Prioritized ??? Osteoporosis 11/22/2018 Priority: Not Prioritized ??? Seizure ([facility]) 10/13/2017 Priority: Not Prioritized ??? Hypertension 07/24/2015 Priority: Not Prioritized ??? Hyperlipidemia 04/14/2015 Priority: Not Prioritized Last Assessment & Plan: Continue home meds and monitor ??? 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 CVA (cerebral vascular accident) ([facility]) ??? HTN (hypertension) ??? Seizure ([facility]) Surgical History: Past Surgical History: Procedure Laterality Date ??? 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 unknown OB History No obstetric history on file. Covid Vaccine: Lab Results: Recent Labs Component Name 03/08/222137 SARSCOV2 Not detected Recent Labs Base Name 03/25/22 1111 [id number] 125* SPECIMENTYPE Cap Fingerstick Recent Labs Component Name 03/25/22 0351 WBC 9.4 RBC 3.32* HCT 32.0* HGB 10.6* PLTCOUNT 262 MCV 96.4 MCH 31.9 MCHC 33.1 MPV 11.4 Recent Labs Component Name 03/14/22 2201 ABORH O POS ABSCG NEG Recent Labs Component Name 03/11/22 1329 BLOODU Negative WBCU 0-5 NITRITE Negative PROTEINU Negative Recent Labs Component Name 03/25/22 0351 POTASSIUM 4.1 CALCIUM 8.9 CO2 24 GLUCOSE 108 BUN 14 CREATININE 0.45* Recent Labs Component Name 03/24/22 0258 MAGNESIUM 1.6 Recent Labs Component Name 03/24/22 0258 PHOS 3.1 Recent Labs Component Name 03/11/22 1059 PH 7.47* PO2 80 PCO2 41 BE 5.6* Recent Labs Component Name 03/11/22 1059 PT 15.4* INR 1.2 Recent Labs Result Component Current Result Troponin I 0.016 (03/08/2022) Recent Labs Result Component Current Result Alkaline Phosphatase 73 (03/17/2022) ALT 21 (03/17/2022) Anion Gap 13 (03/25/2022) AST 34 (03/17/2022) eGFR by CKD-EPI >90 (03/25/2022) I have reviewed the chart. I have interviewed and examined the patient, to the extent allowed by pt condition. I agree with the documentation and have dicussed the anesthesia plan w/ the Resident, AA or CAR PRE COOLER. Documentation of Current Medications in the Medical Record. Patient has been marked Ready for Procedure . I attest to documenting, updating or reviewing a patient's current medications using all immediate resources available on the date of the encounter. Risks of Anesthesia including but not limited to corneal abrasion, visual impairment or visual loss, mouth injury, dental damage, sore throat, hoarseness, esophageal injury, awareness under anesthesia, nerve injury due to positioning, aspiration, pneumonia, stroke, cardiac event, adverse drug reactions and .Patient was seen prior to patient wheeling back to procedural area. Aristeo Sanchez MD 3:48 PM documented in this encounter Procedure Notes * Yelena Grier APRN-CAR PRE COOLER - 03/25/2022 4:51 PM CDTAssociated Order(s): ETT Placement Endotracheal Tube Placement: Intubation Event Date/Time: 03/25/2022 4:31 PM Procedure: intubation (85992). Procedure Section: Sedation: under general anesthesia. Indications for Airway Management: anesthesia Procedure pretreatments used? No Induction: standard IV and rapid sequence Patient Position: sniffing Mask Ventilation: not attempted. Blade Type: King [...] auscultation and CO2 monitor Tube secured with: adhesive tape. Dentition unchanged? Yes Difficult Airway? No. Procedure Start Time: 03/25/2022 4:31 PM. Staff Section Anesthesia Provider: Yelena Grier APRN-CRNA, Performed the procedure documented in this encounter Miscellaneous Notes * Anesthesia Transfer of Care - Yelena Grier APRN-CRNA - 03/25/2022 5:17 PM CDT ANESTHESIA TRANSFER OF CARE NOTE Today's Date: 03/25/2022 Date of : 1960 Patient: Bi Tabor Procedure(s) with comments: ESOPHAGOGASTRODUODENOSCOPY (EGD) DIAGNOSTIC with PEG Placement - gastric erosions and erythema, PEGtube successfully placed Surgeon(s): Primary: Tiffani Castillo MD Preop Diagnosis: Pre-op Diagnois: * Malnutrition, unspecified type (CMS/HCC) [E46] Pre-op Meds (From admission, onward) Start Stop Status Route Frequency Ordered 03/08/22 1435 0.9% NaCl injection 1-10 mL See Hyperspace for full Linked Orders Report. -- Dispensed IK PRN 03/08/22 1437 03/08/22 1515 0.9% NaCl injection 3 mL See Hyperspace for full Linked Orders Report. -- Dispensed IK EVERY 8 HOURS 03/08/22 1437 03/25/22 0609 acetaminophen (Ofirmev) injection 1,000 mg -- Dispensed IV EVERY 8 HOURS PRN 03/25/22 0610 03/25/22 0900 acetaminophen (Tylenol) tablet 650 mg -- Verified Enteral Tube 3 TIMES DAILY 03/25/22 0601 03/11/22 0953 artificial tears ophthalmic solution 1 drop -- Dispensed BOTH EYES 3 TIMES DAILY PRN 03/11/22 0953 03/09/22 0900 aspirin chew tablet 81 mg Note to Pharmacy: OP sig: Take 1 (one) tablet by mouth once daily -- Dispensed PO DAILY 03/08/22 2359 03/09/22 0900 atorvastatin (Lipitor) tablet 40 mg Note to Pharmacy: OP sig: Take 1 (one) tablet by mouth once daily -- Dispensed PO DAILY 03/08/22 23503/24/22 0715 bisacodyl (Dulcolax) suppository 10 mg -- Dispensed RE DAILY 03/24/22 0704 03/24/22 1630 ceFAZolin (Ancef) 2 g in 0.9% NaCl IV 50 mL IVPB 03/26 0029 Dispensed IV EVERY 8 HOURS 03/24/22 1230 03/09/22 0900 folic acid (Folvite) tablet 1 mg Note to Pharmacy: OP sig: Take 1 (one) tablet by mouth once daily -- Dispensed PO DAILY 03/08/22 23503/24/22 2100 heparin injection 5,000 Units 03/24 2001 Completed SC 3 TIMES DAILY 03/24/22 1635 03/23/22 1407 hydrALAZINE (Apresoline) injection 10 mg -- Dispensed IV EVERY 6 HOURS PRN 03/23/22 1407 03/17/22 2100 lacosamide (Vimpat) injection 200 mg -- Dispensed IV 2 TIMES DAILY 03/17/22 1713 03/17/22 2100 levETIRAcetam (Keppra) 2,000 mg in 0.9% NaCl IV 270 mL IVPB -- Dispensed IV EVERY 12 HOURS 03/17/22 1525 03/17/22 1715 LORazepam (Ativan) injection 0.5 mg -- Dispensed IV 3 TIMES DAILY 03/17/22 1713 03/17/22 1520 oxyCODONE (Roxicodone) oral solution 2.5 mg See Hyperspace for full Linked Orders Report. -- Dispensed PO EVERY 6 HOURS PRN 03/17/22 1520 03/11/22 1320 perflutren lipid microsphere (Definity) injection 0.5 mL -- Verified IV INTRA-PROCEDURE MULTIPLE 03/11/22 1321 03/11/22 0953 polyethylene glycol 3350 (Miralax) packet 17 g -- Verified PO DAILY PRN 03/11/22 0953 03/15/22 1830 polyethylene glycol 3350 (Miralax) packet 17 g -- Dispensed PO DAILY 03/15/22 1748 03/24/22 220 PPN - PERIPHERAL LINE - ADULT 03/25 2159 Dispensed CI TPN - 2200 03/24/22 1204 03/23/22 2200 PPN - PERIPHERAL LINE - ADULT - CLINIMIX 03/24 2159 Dispensed CI TPN - 2200 03/23/22 1359 03/09/22 0900 tamsulosin (Flomax) capsule 0.4 mg Note to Pharmacy: OP sig: Take 1 (one) capsule by mouth once daily At the same time every day aftera meal. -- Dispensed PO DAILY 03/08/22235803/25/22 0900 thiamine (Vitamin B-1) injection 100 mg -- Dispensed IV DAILY 03/25/22 0744 03/23/22 0000 valproate (Depacon) 500 mg in 0.9% NaCl IV 55 mL [facility]PB [facility] Report. -- Dispensed IV EVERY 6 HOURS 03/23/222132 Post-op Diagnosis: * Malnutrition, unspecified type (CMS/HCC) [E46] . Allergies Allergen Reactions ??? Clonazepam Psychiatric hallucinations Vitals: Patient Vitals for the past 3 hrs: BP Temp Pulse Resp SpO2 Pain Rating Score #1 03/25/22 1525 150/93 97.4 ??F (36.3 ??C) 100 19 98 % 0 Lines, Drains, and Airways Type Details Placement Removal Peripheral IV Date: 03/22/22; Time: 175; Orientation: Posterior, Proximal, Right; Location: Forearm; Placed By: Rachel Alvarez RN; Gauge: 20 Gauge; Tolerance: Well 03/22/22 175 by Rachel Alvarez RN Peripheral IV Date: 03/24/22; Time: 0610; Orientation: Left, Posterior; Location: Forearm; Placed By: rohit lezama RN; Gauge: 20 Gauge; Locals: None; Tolerance: Well 03/24/22 0610 by Rena Lezama RN Peripheral IV Date: 03/25/22; Time: 1522; Orientation: Anterior, Right; Location: Forearm; Placed By: TEAGAN SIMON; Gauge: 22 Gauge ; Locals: None; Tolerance: Well 03/25/22 1522 by Geri Hernandez RN ETT Date: 03/25/22; Time: 1631; Placed By: GABRIELLA Arndt; Vent: mask not attempted; Induction: Standard IV, Rapid Sequence; Blade Type: King; Blade Size: 4; Laryngoscopy View: Grade2 (partial cords); Intubation Adjuncts: Stylet; Tube: Endotracheal Tube; Placement: Oral; Tube Type: Cuffed- inflated; Tube Size(FR): 7 FR; Depth of Insertion: 24 CM; Measured From: lips; Attempts: 1;Cuff Infated: Air; Verified By: Direct visualization, Bilateral breath sounds, Chest Auscultation, CO2 Monitor 03/25/22 1631 by Yelena Grier APRN-CRNA 03/25/22 1717 by Yelena Grier APRN-CRNA Enteral - 03/25/22; 1654; Jolynn Ann MD; PEG; Abdomen, Midline, Upper; 24; Well 03/25/22 1654 byLila Nguyễn RN Intraprocedure I/O Totals None Patient Transfer Location: PACU Transport Airway: spontaneous respirations and supplemental O2 Transport Monitoring: heart rate and continuous pulse oximetry Complications: None Handoff Given? Yes Checklist or [...] understanding of report from the receiving PACUteam. GABRIELLA Arndt documented in this encounter Plan of Treatment Upcoming Encounters Date Type Department Care Team (Late st Contact Info) Description 12/05/2024 1:00 PM CDT Office Visit [facility] - Neurology [address] [place] [id number] Sean Raymundo, [address] [place] [id number] documented as of this encounter Procedures Procedure Name Priority Date/Time Associated Diagnosis Comments ENDOTRACHEAL TUBE NOTE Routine 03/25/2022 4:31 PM CDT documented in this encounter Results * ETT LINE PERFORMABLE (03/25/2022 4:31 PM CDT) Narrative Yelena Grier APRN-CRNA - 03/25/2022 4:31 PM CDT Yelena Grier APRN-CRNA ? 03/25/2022 ??4:52 PM Endotracheal Tube Placement: ? Intubation Event Date/Time: ??03/25/2022 4:31 PM Procedure: intubation (11324). Procedure Section: ?? Sedation: under general anesthesia. [...] Aristeo Sanchez MD GENERAL ANESTHESIA O RDERABLES documented in this encounter Visit Diagnoses Not on filedocumented in this encounter Administered Medications Inactive Administered Medications - up to 3 most recent administrations Medication Order MAR Action Action Date Dose Rate Site ceFAZolin (Ancef) 2,000 mg in 50 mL IVPB Intravenous, PRN, Starting on Marian 03/25/22 at 1644, Until Marian 03/25/22 at 1717, Anesthesia Intra-op $ Given 03/25/2022 4:44 PM CDT 2 g fentaNYL (PF) (Sublimaze) injection Intravenous, PRN, Starting on Marian 03/25/22 at 1649, Until Marian 03/25/22 at 1717, Anesthesia Intra-op $ Given 03/25/2022 5:00 PM CDT 50 mcg $ Given 03/25/2022 4:49 PM CDT 50 mcg lidocaine HCl (PF) (Xylocaine MPF) 2 % injection Intravenous, PRN, Starting on Marian 03/25/22 at 1631, Until Marian 03/25/22 at 1717, Anesthesia Intra-op $ Given 03/25/2022 4:31 PM CDT 50 mg ondansetron (Zofran) injection Intravenous, PRN, Starting on Marian 03/25/22 at 1651, Until Marian 03/25/22 at 1717, Anesthesia Intra-op $ Given 03/25/2022 4:51 PM CDT 4 mg phenylephrine 100 mcg/mL injection Intravenous, PRN, Starting on Marian 03/25/22 at 1655, Until Marian 03/25/22 at 1717, Anesthesia Intra-op $ Given 03/25/2022 4:55 PM CDT 200 mcg $ Given 03/25/2022 4:21 PM CDT 200 mcg propofol (Diprivan) injection Intravenous, PRN, Starting on Marian 03/25/22 at 1631, Until Marian 03/25/22 at 1717, Anesthesia Intra-op $ Given 03/25/2022 4:32 PM CDT 100 mg $ Given 03/25/2022 4:31 PM CDT 100 mg succinylcholine (Anectine) injection Intravenous, PRN, Starting on Marian 03/25/22 at 1631, Until Marian 03/25/22 at 1717, Anesthesia Intra-op $ Given 03/25/2022 4:31 PM CDT 100 mg documented in this encounter Additional Health Concerns Infection Onset Date Last Indicated Resolved Time MRSA Comment:05/13 MRSA nasal swab doesn't require iso, ES 03/09/2022 03/09/2022 05/13/2022 6:57 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
--- OUTSIDE RECORDS SUMMARY | 2024-06-08 05:39 | XMS_ITS | Encounter Summary ---
Author Organization [facility] Address [address] [place] [address] Care Team Providers Care Colloid Mill Operator Name Role Phone Elizabeth Sullivan RN Unavailable [phone] Joyce Luevano INSTRUCTIONAL LEADER-MUSICAL INSTRUMENT MAKER OR REPAIRER Primary Care Provider [phone] Reason for Visit * Reason Comments Altered mental status Pt BIBEMS from SNF with worsening and mentation and lethargy as reported by family for 3 days. PT arrives with healing wound to the left foot. A&O to self - baseline A&Ox2. 89% on RA - placed on 2L; 127 HR. * Auth/Cert Specialty Diagnoses / Procedures Referred By Contac t Referred To Contact Procedures CHRONIC VIRAL HEPATITIS LIVER FIBROSIS Referral ID Status Reason Start Date Expiration Date Visits Re quested Visits Authorized [id number] 1 1 Encounter Details Date Type Department Care Team (Late st Contact Info) Description 03/08/2022 1:54 PM CDT - 04/01/2022 12:00 PM CDT Hospital Encounter [facility] [address] [place] [phone] Elizabeth Hernandez MD [address] [facility] [place] [phone] [place] [address] [facility] [address] Vicky Silva MD [address] [place] [address] Germaine Nails MD [address] [place] [address] Blair Mojica MD [address] [facility] [address] [facility] [place] [address] Petra Fuentes MD [address] [place] [address] Artur Mcgraw MD [address] [place] [address] [place] N[place] [address] [place] [id number] Vascular Surgery Discharge Disposition: Prison Facility Social History Tobacco Use Types Packs/Day [...] Sign Reading Time Taken Comments Blood Pressure 132/82 04/01/2022 8:14 AM CDT Pulse 120 04/01/2022 8:14 AM CDT Temperature 37.1 ??C (98.8 ??F) 04/01/2022 8:14 AM CD T Respiratory Rate 16 04/01/2022 8:14 AM CDT Oxygen Saturation 93% 04/01/2022 8:14 AM CDT Inhaled Oxygen Concentration - - [...] Hospital Discharge Summary Patient ID: Mojgan Tabor [id number] 62 year old 1960 Admit date: 03/08/2022 [...] Units 04/01/22 0608 03/31/22 0637 03/30/22 0216 NA mmol/L 138 137 140 CL mmol/L [...] G-tube in place EXT: No edema. Disposition: retirement facility Patient Instructions: Medication List START taking [...] at 10:00 am Contact information: [address] OF VASCULAR SURGERY [facility] [address] Joyce Luevano, INSTRUCTIONAL LEADER-MUSICAL INSTRUMENT MAKER OR REPAIRER . Specialty: Nurse Practitioner Why: Follow-up with PCP within 1 week after discharge from nursing facility Contact information: [address] [facility] [address] Contact information for after-discharge care Destination [facility] . Service: Prison Contact information: [address] [facility] [address] Discharge Instructions -1.8 cm spiculated nodule [...] needs or concerns please contact Nico with [employer] [facility] at [phone]; their fax number is [phone] ?? For any incision/wound concerns or needs please contact the vascular surgery office at [phone]. After hours # is [phone] Incision/wound concerns include the following: ?? Redness, increased swelling, new or worsening pain, color changes, new drainage, foul odor, if the incision opens ?? Fevers/chills/temp > [address] Follow up with vascular Dr Membreno in 1 month for a wound check; you will be contacted regarding this. To make or change an appt call [phone] Signed: Dante Nuno MD 04/01/2022 Time spent on discharge: 40 minutes. documented in this encounter Discharge Instructions * Discharge Instructions* Lakesha Francis, INSTRUCTIONAL LEADER-MUSICAL INSTRUMENT MAKER OR REPAIRER - 03/09/2022 4:04 PM CDT -1.8 cm [...] prosthetic needs or concerns please contact [facility]ico [facility] at [phone]; their fax number is [phone] ?? For any incision/wound concerns or needs please contact the vascular surgery office at [phone]. After hours # is [phone] Incision/wound concerns include the following: ?? Redness, increased swelling, new or worsening pain, color changes, new drainage, foul odor, if the incision opens ?? Fevers/chills/temp > [address] Follow up with vascular Dr Membreno in 1 month for a wound check; you will be contacted regarding this. To make or change an appt call [phone] documented in this encounter Medications at Time [...] maintained or improved 04/01/2022 1210 by Denisse Conlye RN Outcome: Completed 04/01/2022 1117 by Denisse [...] RN Outcome: Adequate for Discharge * Crystal Cheema PT - 04/01/2022 11:48 AM CDT [facility] Department of Physical Medicine & Rehabilitation Progress Note Patient: Mojgan Tabor [facility] Record Number: [id number] Date of : 1960 Age: [age] year [...] Outcome: Adequate for Discharge * Gaurav Juarez FINAL APPLICATION REVIEWER - 04/01/2022 9:20 AM CDT Facility Transfer Note Level of Care: Actual level of care at discharge: Jail - Skilled Facility Facility Name: (include name of person confirming admission): Actual discharge provider: [facility] [place] Made Aware of Special Needs (if applicable): Yes RN Call Report to:[phone] Fax D/C Orders to:[phone] Transportation (company and number): [employer] [phone] Certificate of Medical Necessity rationale: Yes Date/time of transfer: 04/01/2022 @ 12:00PM Accepting MD and contact #: Dr. Hoffman Completed and Signed [id number] (if applicable): Family/Other Notified of Transfer (name/phone): Sister notified Authorization Skilled Care: Authorization for Transportation: Verified Qualifying Stay(Skilled Only): YES Comments: Name/Phone number: CLARITA Ram [phone] * Ankur Shen RN - 04/01/2022 12:53 [...] CDT ASHWIN spoke with pt's sister Adriane [phone] and she is agreeable to sending this pt to [facility] for buttermaker care. ASHWIN spoke with Daina galvan @ [facility] and they are able to accept this pt tomorrow 04/01. ASHWIN has arranged for this pt to go to SNF tomorrow @ 12:00PM via [facility]. CLARITA Fang 03/31/2022 * Dina Thomas SLP - 03/31/2022 2:03 PM CDT [facility] Physical Medicine and Rehabilitation Swallow Treatment Patient: Mojgan Tabor Med Record Number: [id number] Date of : 1960 Age: [age] year [...] (Per recent MBS results) Treatment/Education/Interventions: While performing RESOURCE CONSERVATION SPECIALIST, Patient was instructed in: recommendations for NPO [...] to PO intake without risk for aspiration. Benzene Still Utility Operator Goal (s): Patient to discharge to appropriate [...] 37.5 33.1* BMP: Recent Labs Lab Units 03/31/2237 03/30/2221503/29/22317 NA mmol/L 137 140 139 CL mmol/L 102 103 102 CO2 mmol/L 31* 26 28 BUN mg/dL 14 13 11 CREATININE mg/dL 0.46* 0.55* 0.50* CALCIUM mg/dL 9.3 9.6 9.3 Phosphorus: No results for input(s): PHOS in the last 168 hours. Radiology: No results found. Microbiology Results (Displays last 21 days for this encounter ONLY) Procedure Component Value - Date/Time CULTURE BLOOD [[id number]] (Normal) Collected: 03/12/22 0200 Lab Status: Final result Specimen: Blood Peripheral Updated: 03/17/22 0832 Culture No growth day 5 CULTURE BLOOD [[id number]] (Normal) Collected: 03/12/22 0158 Lab Status: Final result Specimen: Blood Peripheral Updated: 03/17/22 0832 Culture No growth day 5 CULTURE BLOOD [[id number]] (Normal) Collected: 03/11/22347 Lab Status: Final result Specimen: Blood Peripheral Updated: 03/16/22 0802 Culture No growth day 5 CULTURE BLOOD [[id number]] (Normal) Collected: 03/11/22 0337 Lab Status: Final result Specimen: Blood Peripheral Updated: 03/16/22 08 Culture No growth day 5 Assessment: Mojgan [...] Goal: Skin integrity is maintained or improved 03/30/20222325 by Angelita Jarrett RN Outcome: Progressing 03/30/2022 2325 by Angelita Jarrett RN Outcome: Progressing Problem: Fall Risk Goal: Fall risk and fall related injury risk are minimized (interventions related to the fall risk can be found in the flowsheet documentation) 03/30/2022 2326 by Angelita Jarrett RN Outcome: Progressing 03/30/2022 2325 by Angelita Jarrett RN Outcome: Progressing Patient [...] Labs: CBC: Recent Labs Lab Units 03/30/22 0216 03/29/22 0318 03/28/22 1105 WBC 10??3/uL 6.8 5.6 5.8 RBC 10??6/uL 3.83* 3.35* 3.48* HGB g/dL 12.2 10.8* 11.2* HCT % 37.5 33.1* 34.0* BMP: Recent Labs Lab Units 03/30/22 0216 03/29/22 0318 03/28/22 1105 NA mmol/L 140 139 138 CL mmol/L 103 102 103 CO2 mmol/L 28 27 BUN mg/dL 13 11 11 CREATININE mg/dL 0.55* 0.50* 0.49* CALCIUM mg/dL 9.6 9.3 9.2 Phosphorus: Recent Labs Lab Units 03/24/22 0258 PHOS mg/dL 3.1 Radiology: No results found. Microbiology Results (Displays last 21 days for this encounter ONLY) Procedure Component Value - Date/Time CULTURE BLOOD [[id number]] (Normal) Collected: 03/12/22 020 Lab Status: Final result Specimen: Blood Peripheral Updated: 03/17/22831 Culture No growth day 5 CULTURE BLOOD [[id number]] (Normal) Collected: 03/12/22157 Lab Status: Final result Specimen: Blood Peripheral Updated: 03/17/22831 Culture No growth day 5 CULTURE BLOOD [[id number]] (Normal) Collected: 03/11/22347 Lab Status: Final result Specimen: Blood Peripheral Updated: 03/16/22801 Culture No growth day 5 CULTURE BLOOD [[id number]] (Normal) Collected: 03/11/22336 Lab Status: Final result Specimen: Blood Peripheral [...] Medina, OT - 03/30/2022 12:08 PM CDT [facility] Physical Medicine and Rehabilitation Occupational Therapy Progress Note New OT orders placed following general anesthesia for PEG placement with no significant changes in functional performance this day. Plan to continue with initial POC and tx as indicated. Patient: Mojgan Tabor [facility] Record Number: [id number] Date of : 1960 Age: [age] year [...] tolerance: fair minus. Modified Florentino: Current Modified Florentino Score: 5 TREATMENT/INTERVENTIONS: ADL training Functional transfer [...] ADL at EOB with Min assist ?? Correction Goal(s): Patient to discharge to appropriate next [...] room, with RN in room. * Nohemi Norman RN - 03/30/2022 11:30 AM CDT Problem: [...] daily grooming tasks Outcome: Progressing * Sole Saravia PT - 03/30/2022 10:55 AM CDT [facility] Physical Medicine and Rehabilitation Physical Therapy Progress Note Patient: Mojgan Tabor [facility] Record Number: [id number] Date of : 1960 Age: [age] year [...] yes to therapy, states he is at [facility] Pain Assessment: Pain Rating Score #: [...] vitals, cognitive stimulation and pt education Modified Mcduffie: Current Modified Mcduffie Score: 5 EDUCATION: While performing PT, Patient [...] transfer bed to/from chair??with maximal assist ?? Correction Goal(s): Patient to discharge to appropriate next [...] , with family in room, with RN tahira, lines intact, rails and up with sz pads in place as per arrival, call light in reach. . * Ezio Sorto, MINH/ONI - 03/30/2022 8:47 AM CDT Nutrition Re-Assessment [...] Mojgan Tabor Age: [age] year old Room: 7715/1 Date Admitted: 03/08/2022 Chief Complaint: Seizure disorder [...] HLD, PVD,??CVA alcohol abuse, and??cervical osteoarthritis,??who??presented to [facility]BIBEMS from SNF??on 03/08/2022 for??worsening mentation 1. Refractory [...] 03/29/2022 9:30 PM CDT Pt transferred to [facility]. Report given to nurse Bautista. Belongings and [...] Thomas SLP - 03/29/2022 10:51 AM CDT [facility] Physical Medicine and Rehabilitation Swallow Treatment Patient: Mojgan Tabor Med Record Number: [id number] Date of : 1960 Age: [age] year [...] (Per recent MBS results) Treatment/Education/Interventions: While performing RESOURCE CONSERVATION SPECIALIST, Patient was instructed in: recommendations for NPO [...] to PO intake without risk for aspiration. Benzene Still Utility Operator Goal (s): Patient to discharge to appropriate next level of inpatient care. Plan: Continued ST for pharyngeal strengthening ex, ongoing assessment * Artur Mcgraw MD - 03/29/2022 10:16 AM CDT [facility] Medicine Progress Note Name: Mojgan Tabor Age: [age] year old Room: / Date Admitted: 03/08/2022 Chief Complaint: Seizure disorder [...] oriented X2 Labs: Recent Labs Component Name 03/29/228 03/25/22 0351 03/24/22 0258 03/18/22 0606 03/17/22 [...] HLD, PVD,??CVA alcohol abuse, and??cervical osteoarthritis,??who??presented to [facility]??BIBEMS from SNF??on 03/08/2022 for??worsening mentation 1. Refractory [...] was spent performing care coordination. * Annabelle Watkins OT - 03/29/2022 8:11 AM CDT [facility] Department of Physical Medicine & Rehabilitation Progress Note Patient: Mojgan Tabor [facility] Record Number: [id number] Date of : 1960 Age: [age] year [...] complete daily grooming tasks Outcome: Progressing * Lucien, Artur Haq MD - 03/28/2022 9:54 AM CDT [facility] Medicine Progress Note Name: Mojgan Tabor [...] HLD, PVD,??CVA alcohol abuse, and??cervical osteoarthritis,??who??presented to [facility]??BIBEMS from SNF??on 03/08/2022 for??worsening mentation 1. Refractory [...] HLD, PVD,??CVA alcohol abuse, and??cervical osteoarthritis,??who??presented to [facility]??BIBEMS from SNF??on 03/08/2022 for??worsening mentation 1. Refractory [...] Outcome: Progressing * Marilynn Alas PT - 03/26/2022 4:06 PM CDT [facility] Department of Physical Medicine & Rehabilitation Progress Note Patient: Mojgan Tabor Med Record Number: [id number] Date of : 1960 Age: [age] year old 03/26/22 1600 Therapy on Hold Therapy on Hold Chart Reviewed;Surgery;New Order Required for Therapy * Cami Coughlin, RESOURCE CONSERVATION SPECIALIST - 03/26/2022 3:47 PM CDT [facility] Physical Medicine and Rehabilitation Swallow Treatment Patient: Mojgan Tabor Med Record Number: [id number] Date of : 1960 Age: [age] year [...] with PO intake. Recommend patient remain NPO. RESOURCE CONSERVATION SPECIALIST will continue to follow for dysphagia treatment. [...] Impression - Pharyngeal: Severe Treatment/Education/Interventions: While performing RESOURCE CONSERVATION SPECIALIST, Patient was instructed in: oropharyngeal exercises. Patient demonstrated Questionable understanding of instructions given. INFORMED CONSENT TO TREATMENT: Plan of care is discussed but patient with questionable understanding. Short Term Goals Patient will complete oropharyngeal strengthening exercises to improve swallow function. Correction Goal (s): Patient to discharge to appropriate next level of inpatient care. Plan: dysphagia treatment Thank you, Cami GARCIA, [facility]-RESOURCE CONSERVATION SPECIALIST Speech Language Pathologist * Snow Ojeda RN - 03/26/2022 1:30 PM CDT TF started at 1330 at rate of 10ml/hr Jevity 1.5 * Ivy Mata RN - 03/26/2022 12:23 PM CDT Case Management Progress Note Anticipated level of care at discharge: Jail - Skilled Facility Basic Needs Assessment (BNA) Score: 14 Anticipated Discharge Date: 03/29/22 Transportation at Discharge: Medicaid Provider Transportation to MD: Medicaid Provider Equipment at Home: Equipment at Home: Wheelchair-Standard Additional DME needed: None Pharmacy benefit: Yes Comments: Tx team continues to work toward safe discharge. PEG tube placed on 03/26/2022; tube feeds started. Pt to continue work with PT/OT/RESOURCE CONSERVATION SPECIALIST. SW and CM continue to monitor for future discharge. Ivy Mata RN, BSN Visual Effects Editor [phone] * Angelina Gould MSW - 03/26/2022 11:10 AM CDT Tuesday Summary Note Discharge Level of Care: SNF Discharge Destination: TBD Phone Number: n/a Fax Number: n/a Insurance Auth: n/a Anticipated Mode of Transportation: ambulance Contacts (Name, relationship, phone #): Adriane Hilliard (sister) [phone] Anticipated DC Date: TBD Pending Needs: pending accepting facility Comments: Radha/DONALDO reviewed referral and unable to accept due to patient's low level of function.SNF referrals pending CLARITA Ochoa Phone [phone] 03/26/2022 * Artur Mcgraw MD - 03/26/2022 10:06 AM CDT [facility] Medicine Progress Note Name: Mojgan Tabor [...] HLD, PVD,??CVA alcohol abuse, and??cervical osteoarthritis,??who??presented to [facility]??BIBEMS from SNF??on 03/08/2022 for??worsening mentation 1. Refractory [...] Alert, awake Abdomen soft A 24 Fr Rojas-Cook Percutaneous gastrostomy tube was freely rotating in [...] 60* ALT 21 - - 23 - ALKPHOS 73 - - 73 - [...] Hepatology Fellow Division of Gastroenterology and Hepatology [facility] Associated attestation - Bebe Rowe MD - 03/26/2022 4:02 PM CDT I have seen and examined the patient with the fellow and I agree with the findings and plan of careas documented above. Bebe Rowe MD [employer] Cutterconcrete pourer at [facility] Manager Cost and Advanced Endoscopist Division of Gastroenterology & Hepatology * Ivy Mata RN - 03/26/2022 8:34 AM CDT This magnetic tape typewriter operator received message from Anival Hilliard regarding wanting to get in contact with SW on 03/25/2022. Informed SW and forwarded message. Continue to monitor. Ivy Mata RN, BSN Visual Effects Editor [phone] * Koby Jeffries RN - 03/26/2022 2:42 [...] Jaramillo SLP - 03/25/2022 3:24 PM CDT [facility] Department of Physical Medicine & Rehabilitation Speech Therapy Progress Note Patient: Mojgan Tabor [facility] Record Number: [id number] Date of : 1960 Age: [age] year [...] Outcome: Progressing * Marilynn Alas, PT - 03/25/2022 10:45 AM CDT [facility] Physical Medicine and Rehabilitation Physical Therapy Progress Note Patient: Mojgan Tabor [facility] Record Number: [id number] Date of : 1960 Age: [age] year [...] monitoring of vitals and cognitive stimulation Modified Mcduffie: Current Modified Mcduffie Score: 5 EDUCATION: While performing PT, Patient [...] will transfer bed to/from chair??with maximal assist Correction Goal(s): Patient to discharge to appropriate next [...] Naylor OT - 03/25/2022 10:45 AM CDT [facility] Physical Medicine and Rehabilitation Occupational Therapy Progress Note Patient: Mojgan Tabor [facility] Record Number: [id number] Date of : 1960 Age: [age] year [...] ACTIVITY TOLERANCE: Patient's activity tolerance: fair. Modified Mcduffie: Current Modified Florentino Score: 5 TREATMENT/INTERVENTIONS: ADL training Functional transfer [...] complete ADL at EOB with Min assist Correction Goal(s): Patient to discharge to appropriate next [...] light within reach, with RNSnow aware. * Angelina Gould MSW - 03/25/2022 10:30 AM CDT ASHWIN continues to follow. ASHWIN had family meeting with patient's sisters Jaleesa and Adriane and med spa manager Ivy. ASHWIN and CM discussed with sisters patient's current status re: DC plan, patient has been denied at [facility] and Adriane does not want him to return to [place]. ASHWIN discussed that PT/OT is planning to see him today and ASHWIN can send those therapy notes to [facility] rehab for them to review, but that if he gets denied he will need SNF. Sisters verbalized understanding, but perseverated multiple times on the denial by [facility], patient's previous baseline/functional status while living in the community, and current medical status. ASHWIN and CM attempted to answer their questions re: dispo planning. Leticia wood did agree to SNF referrals and prefer the following facilities: [facility] in [place], [facility], [facility] in [place], and [facility] in [place]. Referrals faxed via [employer]. ASHWIN also notified Radha/DONALDO of referral. CLARITA Guzman 03/25/2022 [phone] * Artur Mcgraw MD - 03/25/2022 8:50 AM CDT [facility] Medicine Progress Note Name: Mojgan Tabor Age: [age] year old Room: / Date Admitted: 03/08/2022 Chief Complaint: Seizure disorder [...] 0258 03/18/22 0606 03/17/22 1112 03/12/22 0158 10/13/22 1059 WBC 9.4 11.0* - 11.2* - [...] HLD, PVD,??CVA alcohol abuse, and??cervical osteoarthritis,??who??presented to [facility]??BIBEMS from SNF??on 03/08/2022 for??worsening mentation 1. Refractory [...] Thomas SLP - 03/24/2022 1:30 PM CDT [facility] Physical Medicine and Rehabilitation Swallow Treatment Patient: Mojgan Tabor [facility] Record Number: [id number] Date of : 1960 Age: [age] year [...] (Per recent MBS results) Treatment/Education/Interventions: While performing RESOURCE CONSERVATION SPECIALIST, Patient was instructed in: recommendations for NPO [...] to PO intake without risk for aspiration. Correction Goal (s): Patient to discharge to appropriate next level of inpatient care. Plan: Continued ST for pharyngeal strengthening ex, ongoing assessment * Archei Carreno MD - 03/24/2022 11:56 AM CDT Brief GI Note Evaluated at bedside, pt sleeping and not responding to verbal stimuli but breathing comfortably Abdomen soft without tenderness or guarding Tentative PEG tube placement today afternoon Further Post-PEG tube recs per endoscopy team Archie Carreno MD Gastroenterology and Hepatology Fellow [facility] * Angelina Gould MSW - 03/24/2022 11:30 AM CDT ASHWIN following for DC planning. ASHWIN spoke with sister Adriane Hilliard via phone re: DC plan. ASHWIN explained to Adriane that [facility] denied patient due to him not being able to tolerate 3 hours of therapy. Adriane stated that she did not think this was fair to patient. SW explained to sister that rehab has very strict criteria for patients qualifying and that each patient is screened using the same criteria. Adriane asked if there were other rehabs that may consider pt, ASHWIN explained that [facility] may be able to evaluate for admission, but their criteria would be the same as [facility]. Adriane agreed for ASHWIN to send referral to [facility], but not to tell them what the other rehab said re: reason for denial. ASHWIN asked Adriane if patient is not a rehab candidate, if she was still planning on him returning to [place]. Adriane stated to ASHWIN that he couldn't [...] other things to be his social media executive . ASHWIN explained that role of ASHWIN while patient is hospitalized is to facilitate a safe DC plan, and that ASHWIN [facility] [place], but that since that [...] Mojgan Tabor Age: [age] year old Room: / Date Admitted: 03/08/2022 Chief Complaint: Seziure disorder [...] - 34 - 60* ALT - - 21 - 26 ALKPHOS - - 73 - 71 TBILI [...] HLD, PVD,??CVA alcohol abuse, and??cervical osteoarthritis,??who??presented to [facility]??BIBEMS from SNF??on 03/08/2022 for??worsening mentation 1. Refractory [...] Mcgraw MD - 03/23/2022 1:57 PM CDT Hospital Medicine Progress Note Name: Mojgan [...] HLD, PVD,??CVA alcohol abuse, and??cervical osteoarthritis,??who??presented to [facility]??BIBEMS from SNF??on 03/08/2022 for??worsening mentation 1. Refractory [...] Gould MSW - 03/23/2022 1:25 PM CDT continues to follow. Clinical updates sent to [facility]. Unsure of DC date at this time. [...] Thomas SLP - 03/23/2022 10:28 AM CDT [facility] Physical Medicine and Rehabilitation Swallow Treatment Patient: Mojgan Tabor [facility] Record Number: [id number] Date of : 1960 Age: [age] year [...] (Per recent MBS results) Treatment/Education/Interventions: While performing RESOURCE CONSERVATION SPECIALIST, Patient was instructed in: recommendations for NPO [...] to PO intake without risk for aspiration. Correction Goal (s): Patient to discharge to appropriate [...] Thomas SLP - 03/22/2022 2:00 PM CDT [facility] Modified Barium Swallow Patient: Mojgan Tabor [facility] Record Number [id number] Date of : 1960 Age: [age] year [...] and collapse Alzheimer's disease with early onset ([facility]) Cognitive communication deficit COVID-19 Dysphagia, oropharyngeal phase Hemiplegia and 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- dominant side ([facility]) History of CVA (cerebrovascular accident) Paroxysmal tachycardia, unspecified ([facility]) Status epilepticus ([facility]) Acute encephalopathy Sepsis without acute organ dysfunction ([facility]) Bacteremia Pneumonia Ulcer of left foot ([facility]) PAD (peripheral artery disease) ([facility]) Protein calorie malnutrition ([facility]) Past Medical History: Diagnosis Date ??? CVA (cerebral vascular accident) ([facility]) ??? HTN (hypertension) ??? Seizure ([facility]) Impressions Pt presents with oropharyngeal dysphagia characterized [...] 3-5 times perweek to improve swallow function. Benzene Still Utility Operator Goal(s): Patient to discharge to appropriate next [...] hrs of daily therapy. [facility] and able to [facility] once medically appropriate. CLARITA Carson [phone] * Dina Thomas, RESOURCE CONSERVATION SPECIALIST - 03/22/2022 9:13 AM CDT [facility] Physical Medicine and Rehabilitation Swallow Treatment Patient: Mojgan Tabor Med Record Number: [id number] Date of : 1960 Age: [age] year [...] - Pharyngeal: Mild;Moderate (suspected) Treatment/Education/Interventions: While performing RESOURCE CONSERVATION SPECIALIST, Patient and sister were instructed in: goals [...] aspiration. Patient will follow recommended swallowing strategies. Benzene Still Utility Operator Goal (s): Patient to discharge to appropriate [...] with speech therapy Discussed with social media executive Discussed with patient's POA who believed that his mental status is currently close to his baseline. Total time spent more than 38 minutes, more than 50% spent for coordinating patient care and counseling about treatment plan. Petra Fuentes MD, MRCP (), FACP Rotary Shear Cutterconcrete pourer Department of Internal Medicine Feel free to text page me through Leeo. * Mariajose Estrada RN - 03/22/2022 5:19 [...] team Petra Fuentes MD, MRCP ([place]), FACP Rotary Shear Cutterconcrete pourer Department of Internal Medicine Feel free to text page me through Leeo. * Bety Abdi RN - 03/20/2022 10:27 [...] team Petra Fuentes MD, MRCP (), FACP Rotary Shear Cutterconcrete pourer Department of Internal Medicine Feel free to text page me through Leeo. * Ciara Jaramillo, RESOURCE CONSERVATION SPECIALIST - 03/19/2022 4:00 PM CDT [facility] Department of Physical Medicine & Rehabilitation Speech Therapy Progress Note Patient: Mojgan Tabor [facility] Record Number: [id number] Date of : 1960 Age: [age] year old 03/19/22 1552 Missed Visit Missed Visit Pt was sleeping soundly at time of speech therapy visit. Pt will be on schedule to be seen on 03/20 for ongoing dysphagia therapy. * Myrna Hammond - 03/19/2022 12:22 PM CDT Telecommunications Manager followed a pastoral care consult requesting a commercial airline pilot visit. Patient was asleep, his sister was present in the room. Telecommunications Manager engaged her in conversation. She spoke of their large family asa good system of support for one another. Telecommunications Manager provided a pastoral presence and active listening. Pastoral care remains available continuously in the hospital. Myrna Hammond 03/19/2022 12:26 PM * Angelina Gould MSW - 03/19/2022 12:19 PM CDT Tuesday Summary Note Discharge Level of Care: SNF vs acute rehab Discharge Destination: [place] vs [facility] Phone Number: n/a Fax Number: n/a Insurance Auth: will need auth for acute rehab Anticipated Mode of Transportation: ambulance Contacts (Name, relationship, phone #): Adriane Hilliard (sister) [phone] Anticipated DC Date: TBD Pending Needs: Comments: awaiting medical stability, patient from [place] but family interested in [facility] due to new amputation CLARITA Ochoa Phone [phone] 03/19/2022 * Ivy Mata RN - 03/19/2022 11:05 AM CDT Case Management Progress Note Anticipated level of care at discharge: Jail - Skilled Facility Basic Needs Assessment (BNA) Score: 15 Anticipated Discharge Date: 03/25/2022 Transportation at Discharge: Medicaid Provider Transportation to MD: Medicaid Provider Equipment at Home: Equipment at Home: Wheelchair-Standard Additional DME needed: None Pharmacy benefit: Yes Comments: 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 Continue to work with PT/OT. Working with RESOURCE CONSERVATION SPECIALIST to improve swallow function. Possible dc to [facility]. Continues IV abx with EOT 03/25/2022. Continue to monitor forplacement. Ivy Mata RN, BSN Visual Effects Editor [phone] * Baylee Quintero RN - 03/19/2022 10:45 [...] plan. Petra Fuentes MD, MRCP (), FACP Rotary Shear Cutterconcrete pourer Department of Internal Medicine Feel free to text page me through Leeo. * Mira Valdez MD - 03/18/2022 3:41 PM CDT [facility] Infectious Diseases Progress Note Admitted on: 03/08/2022 1:54 PM Hospital stay: Day 10 Room: [facility] Attending: Petra Fuentes MD Reason for ID F/U: MSSA bacteremia Brief History and Hospital Course: Mojgan Tabor??is a 62??year old?? male??with PMH??of??HTN, HLD, PVD,??CVA (2014), prior head injury (from a fall?), refractory epilepsy,??Alzheimer's (early onset),??alcohol abuse, and??cervical osteoarthritis,??who??presented to [facility]BIBEM[facility] from SNF??on 03/08/2022 for??worsening mentation.??Family came to [...] CBC: Recent Labs Component Name 03/17/22 1112 03/16/2261803/14/223 WBC 11.2* 8.9 10.1 RBC 3.35* 3.15* 3.54* HGB 10.7* 10.0* 11.4* HCT 32.7* 31.0* 33.4* MCV 97.6 98.4* 94.4 BMP: Recent Labs Component Name 03/18/22 0606 03/17/22 1112 03/16/2219 03/14/223 03/14/228 03/12/22 0158 03/11/22 1059 NA 140 140 [...] (L)). Recent Labs Component Name 03/17/22 1112 03/14/2245703/11/22 1059 ALT 21 23 26 AST 34 [...] MPH Infectious Diseases (Team 2) * Ciara Jaramillo, JOSIAS - 03/18/2022 1:48 PM CDT [facility] Physical Medicine and Rehabilitation Swallow Treatment Patient: Mojgan Tabor Med Record Number: [id number] Date of : 1960 Age: [age] year [...] Impression - Pharyngeal: Moderate Treatment/Education/Interventions: While performing RESOURCE CONSERVATION SPECIALIST, Patient and sister were instructed in: goals [...] aspiration., Patient will follow recommended swallowing strategies. Benzene Still Utility Operator Goal (s): Patient to discharge to appropriate [...] plan. Petra Fuentes MD, MRCP (), FACP Rotary Shear Cutterconcrete pourer Department of Internal Medicine Feel free to text page me through Leeo. * Anna Membreno MD - 03/18/2022 6:21 AM CDT Images from the original note were not included. [facility] Vascular Surgery Consult Note Name: Mojgan Tabor : 1960 Date of Service: 03/18/22 Attending Surgeon: Dr. Membreno Progress Note POD: 3 HPI: This is a 62 year old male with pmh of htn, CVA, HLD, alzheimer, and epilepsy brought to hospital after patient's family noted that he has worsening mental status at shelter. Patient was initially consulted to the vascular [...] Sexual Activity Alcohol use: No Comment: last 2015 Drug use: No Comment: occasional Sexual [...] 94.4 Recent Labs Component Name 03/17/22 1112 03/16/2261803/14/22220203/14/22 0458 NA 140 142 140 137 CL 106 107 104 107 CO2 29 29 28 26 BUN 10 12 9 11 CREATININE 0.53* 0.69* 0.52* 0.49* CALCIUM 9.0 8.5 9.1 9.0 MAGNESIUM - 1.6 1.8 1.7 PHOS - 3.2 2.3* 2.3* Recent Labs Component Name 03/17/22 1112 03/16/22 0619 03/14/22 2203 03/14/22 0458 03/12/22 0158 03/11/22 1059 03/03/18 1745 [...] 1.1 No results for input(s): PHART, PO2ART, GFU7QFW, BEART in the last 75936 hours. I/O last 3 completed shifts: In: [...] pelvis. > Dictated by Brandee Celestin MD (physician president). I, John Graham MD have personally [...] attending physician Dr. Membreno. Riky Williamson MD [facility] Vascular Surgery 03/18/2022 6:22 AM Attending/Teaching Physician [...] limited. Patient has previously been to [facility], SW gave referral to [facility] to review to see if patient would be a rehab candidate. CLARITA Guzman 03/17/2022 [phone] * Dina Thomas, JOSIAS - 03/17/2022 1:59 PM CDT [facility] Physical Medicine and Rehabilitation Bedside Swallow Re-Assessment Patient: Mojgan Tabor [facility] Record Number: [id number] Date of : 1960 Age: [age] year [...] Impression - Pharyngeal: Moderate Education/Interventions: While performing RESOURCE CONSERVATION SPECIALIST, Patient was instructed in: recommendations for NPO status given patient's elevated aspiration risk. Patient demonstrated Questionable understanding of instructions given. Physician and Nurse contacted regarding results of swallow evaluation and recommendations. INFORMED CONSENT TO TREATMENT: Plan of care is discussed but patient with questionable understanding. Short Term Goals Patient will demonstrate an improvement in oropharyngeal swallow function to warrant diet upgrade. Correction Goal (s): Patient to discharge to appropriate next level of inpatient care. Plan: Dysphagia tx for ongoing assessment * Elmo Lawrence, DO - 03/17/2022 1:50 PM CDT Neurology Progress Note Patient: Mojgan Tabor Age: [age] year old Admission Date and Time: 03/08/2022 Reason for consult: concern for sz activity History of Presenting Illness: Mojgan Tabor is a 62 year old male Pt is a 62 y/o m with a pmhx of HTN, HLD, PVD, CVA (2014), refractory epilepsy, Alzheimer's (early onset), alcohol abuse, and cervical osteoarthritis. Neurology was consulted due to a SCROLL MACHINE OPERATOR paged for unresponsiveness. At 1012 on 03/16/22 [...] a pmhx of HTN, HLD, PVD, CVA (2014), priorhead injury, refractory epilepsy, Alzheimer's (early onset), alcohol abuse, and cervical osteoarthritis. Neurology was consulted due to a SCROLL MACHINE OPERATOR page for unresponsiveness, concern for sz activity. [...] yesterday which I attested today. * Marie Street OT - 03/17/2022 11:20 AM CDT [facility] Physical Medicine and Rehabilitation Occupational Therapy Initial Evaluation Note Patient: Mojgan Tabor [facility] Record Number: [id number] Date of : 1960 Age: [age] year [...] by patient Home Situation: Type of Residence: Jail Equipment at Home: Wheelchair-Standard Prior Level of [...] complete ADL at EOB with Min assist Correction Goal(s): Patient to discharge to appropriate next [...] within reach, with family in room, with RNVerito aware. * Ivy Crawford, PT - 03/17/2022 11:15 AM CDT [facility] Physical Medicine and Rehabilitation Physical Therapy Re-Evaluation Note Patient: Mojgan Tabor Med Record Number: [id number] Date of : 1960 Age: [age] year old Patient from hold, new PT orders received. Re-eval indicated due [...] goals stated Home Situation: Type of Residence: Jail Equipment at Home: Wheelchair-Standard Prior Level of [...] LLE: L AKA, hip WFL Strength: RLE: 06/03 Unable to participate in further objective testing [...] monitoring of vitals and cognitive stimulation Modified Florentino: Current Modified Mcduffie Score: 5 EDUCATION: While performing PT, Patient [...] transfer bed to/from chair with maximal assist Benzene Still Utility Operator Goal(s): Patient to discharge to appropriate next [...] in room, with RN, Verito aware. * Otto Mcrae MD - 03/17/2022 10:57 AM CDT [facility] Vascular Surgery Consult Note Name: Mojgan Tabor : 1960 Date of Service: 03/17/22 Attending Surgeon: Dr. Membreno Progress Note POD: 1 HPI: This is a 62 year old male with pmh of htn, CVA, HLD, alzheimer, and epilepsy brought to hospital after patient's family noted that he has worsening mental status at shelter. Patient was initially consulted to the vascular [...] 3.2 2.3* 2.3* Recent Labs Component Name 03/16/2261803/14/22220203/14/228 03/12/22 0158 03/11/22 1059 03/10/22 1147 03/09/22 [...] 14 - 18 23 ALT - - - - 27 - 10 - 9 11 ALKPHOS - - 73 - 71 - 74 - 75 - 86 88 - = values in this interval not displayed. Recent Labs Component Name 03/11/22 1059 03/05/22 1110 02/25/21 1134 INR 1.2 1.0 1.1 No results for input(s): PHART, PO2ART, MIS5QQH, BEART in the last 42858 hours. I/O last 3 completed shifts: In: [...] pelvis. > Dictated by Brandee Celestin MD (physician president). I, John Graham MD have personally [...] been seen and discussed with my in warehouse manager Dr. Koenig and attending physicianDr. Membreno. Otto Mcrae MD 03/17/2022 10:59 AM * Marcella Terrell - 03/17/2022 10:10 AM CDT Discharge Medical Records Technician received request from Lakesha Francis APRN to arrange follow- up appointment for Patient with Vascular. This magnetic tape typewriter operator called [phone] and spoke with Yana. Medical Records Technician was able to obtain follow-up appointment for Patient with Dr. Membreno on March at 10:00 am.No further follow-up needs from industrial truck driver indicated at this time. Marcella Terrell, Discharge Medical Records Technician 03/17/2022 * Ezio Sorto RD/ONI - 03/17/2022 [...] Physician: none. Comments: Pt scheduled for reassessment. SCROLL MACHINE OPERATOR was paged yesterday for pt becoming unresponsive. Currently on puree diet, RESOURCE CONSERVATION SPECIALIST on board. NO PO intake documented x [...] wound to foot Estimated Energy Needs: KCAL: 0 (30kcal/kg ABW) Protein (g): [...] formulations are not available to order at [facility], communicated with pharmacy Pending Vimpat and Onfi [...] plan. Petra Fuentes MD, MRCP (), FACP Rotary Shear Cutterconcrete pourer Department of Internal Medicine Feel free to text page me through Leeo. * Sarah Rodriguez RN - 03/16/2022 10:55 [...] CDT SW continues to follow. Patient from [facility] but family is interested in patient going to [facility] as he has been there previously. Patient will need new PT/OT notes since surgery on 03/15. CLARITA Guzman 03/16/2022 [phone] * Annabelle Watkins OT - 03/16/2022 9:50 AM CDT [facility] Department of Physical Medicine & Rehabilitation Progress Note Patient: Mojgan Tabor [facility] Record Number: [id number] Date of : 1960 Age: [age] year [...] Vitals assessed and RN notified, RN and thiokol operator came to bedside and initiated rapid response. OT will continue to follow and re-attempt evaluation as appropriate. * Ivy Crawford, PT - 03/16/2022 9:50 AM CDT [facility] Department of Physical Medicine & Rehabilitation Progress Note Patient: Mojgan Tabor [facility] Record Number: [id number] Date of : 1960 Age: [age] year [...] notified and arrived to room with charge weigher, RR called. Cancel PT for this date, will follow up with pt 03/17. * Anna Membreno MD - 03/16/2022 7:56 AM CDT [facility] Vascular Surgery Consult Note Name: Mojgan Tabor : 1960 Date of Service: 03/16/22 Attending Surgeon: Dr. Membreno Progress Note POD: 1 HPI: This is a 62 year old male with pmh of htn, CVA, HLD, alzheimer, and epilepsy brought to hospital after patient's family noted that he has worsening mental status at shelter. Patient was initially consulted to the vascular [...] History: Diagnosis Date CVA (cerebral vascular accident) ([facility]) HTN (hypertension) Seizure ([facility]) Surgical Hx: - Left AKA (03/15/22) No [...] 3.2 2.3* 2.3* Recent Labs Component Name 03/16/22 0619 03/14/22 [...] 1.1 No results for input(s): PHART, PO2ART, OZD8CTG, BEART in the last 54065 hours. I/O last 3 completed shifts: In: 5638.7 [P.O.:60; I.V.:5578.7] Out: 2750 [Urine:2700; Blood Loss:50] Imaging: CT HEAD WO CONTRAST Result Date: 03/11/2022 IMPRESSION: 1.No acute intracranial abnormality. 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 > Interpreting Provider: Latrice Ortiz MD on :[address] HEAD WO CONTRAST Result Date: [...] pelvis. > Dictated by Brandee Celestin MD (physician president). I, John Graham MD have personally [...] been seen and discussed with my in warehouse manager Dr. Koenig and attending physicianDr. [...] plan. Petra Fuentes MD, MRCP (), FACP Rotary Shear Cutterconcrete pourer Department of Internal Medicine Feel free to text page me through Leeo. * Sarah Rodriguez RN - 03/16/2022 3:38 [...] Valdez MD - 03/15/2022 2:53 PM CDT [facility] Infectious Diseases Progress Note Admitted on: 03/08/2022 1:54 PM Hospital stay: Day 7 Room: [facility]/ Attending: Blair Mojica MD Reason for ID f/u: MSSA bacteremia Brief History and Hospital Course: Mojgan Tabor??is a 62??year old?? male??with PMH??of??HTN, HLD, PVD,??CVA (2014), prior head injury (from a fall?), refractory epilepsy,??Alzheimer's (early onset),??alcohol abuse, and??cervical osteoarthritis,??who??presented to [facility]BIB[facility] from SNF??on 03/08/2022 for??worsening mentation.??Family came to [...] Lines: LABS CBC: Recent Labs Component Name 03/14/22220203/14/2245703/13/22418 WBC 10.1 9.2 10.7* RBC 3.54* 3.23* 3.84* HGB 11.4* 10.4* 12.2 HCT 33.4* 30.5* 37.4 MCV 94.4 94.4 97.4 BMP: Recent Labs Component Name 03/14/22220203/14/2245703/13/229 03/12/22 0158 03/11/22 1059 03/10/22 1147 03/09/22 [...] 0.52 mg/dL (L)). Recent Labs Component Name 03/14/2245703/11/22 1059 03/09/22 0411 ALT 23 26 27 [...] MD MPH Infectious Diseases (Team 2) * Clay, Riky, MD - 03/15/2022 12:13 PM CDT Vascular Surgery Plan of Care S/p Left above knee amputation. -OK to resume modified consistency diet. -NWB LLE. -Vascular Surgery to remove dressing on POD#3 -OK for HSQ DVT prophylaxis. Riky Williamson MD [facility] Vascular Surgery 03/15/2022 12:15 PM * Annabelle Watkins OT - 03/15/2022 11:45 AM CDT [facility] Department of Physical Medicine & Rehabilitation Progress Note Patient: Mojgan Tabor [facility] Record Number: [id number] Date of : 1960 Age: [age] year old 03/15/22 1105 Therapy on Hold Therapy on Hold Surgery;Chart Reviewed;New Order Required for Therapy Please reorder as indicated post-op * Meredith Ray PT - 03/15/2022 11:44 AM CDT [facility] Department of Physical Medicine & Rehabilitation Patient: Mojgan Tabor [facility] Record Number: [id number] Date of : 1960 Age: [age] year old 03/15/22 1100 Therapy on Hold Therapy on Hold Surgery;New Order Required for Therapy * Dina Thomas SLP - 03/15/2022 10:00 AM CDT [facility] Department of Physical Medicine & Rehabilitation Progress Note Patient: Mojgan Tabro [facility] Record Number: [id number] Date of : 1960 Age: [age] year [...] Given - Contrast 03/15/2022 Vancomycin Administrations from JUL (last 72 hours) Date/Time Action Medication Dose Rate 03/15/22 0641 $ New Bag vancomycin (Vancocin) 1,250 mg in 250 mL NaCl IVPB Premix 1,250 mg 200 mL/hr 03/14/222 $ New Bag vancomycin (Vancocin) 1,250 mg [...] only for bacteremia course Please contact the [facility] pharmacy department ([phone]) with any questions. Rickie Shelton Jr., PharmD 03/15/2022 9:39 AM Resources: Vancomycin Protocol * Anna Membreno MD - 03/15/2022 7:49 AM CDT Plan for left aka today in operating room * Anna Membreno MD - 03/15/2022 7:40 AM CDT [facility] Vascular Surgery Consult Note Name: Mojgan Tabor : 1960 Date of Service: 03/15/22 Attending Surgeon: Dr. Membreno Reason for Consult: Left Foot wound HPI: This is a 62 year old male with pmh of htn, CVA, HLD, alzheimer, and epilepsy brought to hospital after patient's family noted that he has worsening mental status at shelter. Patient was initially consulted to the vascular [...] 2.3* 2.3* 2.8 Recent Labs Component Name 03/14/22220203/14/2245703/13/2241803/12/22 0158 03/11/22 1059 03/10/22 1147 03/09/22 0411 [...] 35* - - 60* - 75* - 14 - 18 23 ALT - 23 - - 26 - 27 - 10 - 9 11 ALKPHOS - 73 - - 71 - 74 - 75 - 86 88 - = values in this interval not displayed. Recent Labs Component Name 03/11/22 1059 03/05/22 1110 02/25/21 1134 INR 1.2 1.0 1.1 No results for input(s): PHART, PO2ART, CJH8QZI, BEART in the last 06856 hours. I/O last 3 completed shifts: In: [...] pelvis. > Dictated by Brandee Celestin MD (physician president). I, John Graham MD have personally [...] been seen and discussed with my in warehouse manager Dr. Koenig and attending physicianDr. [...] this time Blair Mojica MD Hospital Medicine 03/15/2022 Feel free to text page me through Leeo, login [employer] Current Meds ??? 0.9% NaCl 3 mL [...] Epilepsy, unspecified, not intractable, without status epilepticus ([facility]/HCC) POA: Yes History of CVA (cerebrovascular accident) POA: Yes Hypertension POA: Yes Sepsis without acute organ dysfunction ([facility]/HCC) POA: Unknown Bacteremia POA: Unknown Pneumonia POA: Unknown Ulcer of left foot ([facility]) POA: Unknown PAD (peripheral artery disease) ([facility]) POA: Unknown Protein calorie malnutrition ([facility]) POA: Unknown * Phyllis Rangel RN - [...] care at this time Blair Mojica MD [facility] Medicine 03/14/2022 Feel free to text page me through Leeo, login [employer] Current Meds ??? 0.9% NaCl 3 mL [...] Mancia MD - 03/14/2022 7:06 AM CDT [facility] Infectious Diseases Progress Note Admitted on: 03/08/2022 1:54 PM Hospital stay: Day 6 Room: [facility] Attending: Blair Mojica MD Reason for ID consultation: MSSA bacteremia Brief History and Hospital Course: Mojgan Tabor??is a 62 year old?? male??with PMH of HTN, HLD, PVD, CVA (2014), priorhead injury (from a fall?), refractory epilepsy, Alzheimer's (early onset), alcohol abuse, and cervical osteoarthritis, who presented to [facility] from SNF on 03/08/2022 for worsening mentation. [...] CBC: Recent Labs Component Name 03/14/22 0458 03/13/2241803/12/228 WBC 9.2 10.7* 12.4* RBC 3.23* 3.84* 3.55* HGB 10.4* 12.2 11.3* HCT 30.5* 37.4 33.4* MCV 94.4 97.4 94.1 BMP: Recent Labs Component Name 03/13/2241803/12/22 0158 03/11/22 1059 03/10/22 1147 03/09/221 03/08/22 1455 NA 141 139 139 - [...] (L)). Recent Labs Component Name 03/11/22 1059 03/09/22 0411 03/08/22 1455 ALT 26 27 26 AST [...] Mancia M.D. Infectious Diseases (Team 2) Pager [phone] * Phyllis Rangel RN - 03/14/2022 2:10 AM CDT Patient have left upper extremity cold ,pulse present and other vitals stable,Dr Musa Gruber notified. * Nevaeh Valera [facility] - 03/13/2022 11:30 PM CDT Vancomycin Per [...] - 12.5 - 7.7* Vancomycin Administrations from MAR (last 72 hours) [...] monitor patient's renal function. Please contact the [facility] pharmacy department ([phone]) with any questions. Nevaeh Valera RPH 03/13/2022 11:29 PM Resources: Vancomycin Protocol * Phyllis Rangel RN - 03/13/2022 8:20 PM CDT Problem: Pain/Discomfort Goal: Patient exhibits reduced pain/discomfort as evidenced by pain scores Outcome: Progressing * Nevaeh Valera [facility] - 03/13/2022 6:13 PM CDT Vanc Day [...] and reassess current regimen Nevaeh Valera RPH [facility] Department of Pharmacy * Ciara Jaramillo SLP - 03/13/2022 1:10 PM CDT [facility] Physical Medicine and Rehabilitation Bedside Swallow Assessment Patient: Mojgan Tabor Med Record Number: [id number] Date of : 1960 Age: [age] year [...] Impression - Pharyngeal: Mild Education/Interventions: While performing RESOURCE CONSERVATION SPECIALIST, Patient and family members were instructed in: [...] aspiration., Patient will follow recommended swallowing strategies. Benzene Still Utility Operator Goal (s): Patient to discharge to appropriate [...] care at this time Blair Mojica MD [facility] Medicine 03/13/2022 Feel free to text page me through Leeo, login [employer] Current Meds ??? 0.9% NaCl 3 mL [...] Protein calorie malnutrition (CMS/HCC) POA: Unknown * Watkins Annabelle R, OT - 03/12/2022 2:14 PM CDT [facility] Physical Medicine and Rehabilitation Occupational Therapy Initial Evaluation Note Patient: Mojgan Tabor [facility] Record Number: [id number] Date of : 1960 Age: [age] year [...] of tx Home Situation: Type of Residence: Jail (SNF) Equipment at Home: Wheelchair-Standard Prior Level [...] sit with moderate assist and X 2 Benzene Still Utility Operator Goal(s): Patient to discharge to appropriate next [...] (Name, relationship, phone #): Adriane Hilliard (sister) [phone] Anticipated DC Date: TBD Pending Needs: n/a Comments: anticipate return to SNF when medically cleared CLARITA Ochoa Phone [phone] 03/12/2022 * Ivy Crawford, PT - 03/12/2022 9:46 AM CDT [facility] Physical Medicine and Rehabilitation Physical Therapy Initial Evaluation Note Patient: Mojgan Tabor [facility] Record Number: [id number] Date of : 1960 Age: [age] year [...] (hypertension) ??? Seizure (CMS/HCC) SUBJECTIVE: Subjective: I used a wheelchair. Pt agreeable to therapy. PATIENT GOALS: Patient's Primary Concern: To get warm. Home Situation: Type of Residence: Jail (SNF) Equipment at Home: Wheelchair-Standard Prior Level [...] transfer bed to/from chair with maximal assist Correction Goal(s): Patient to discharge to appropriate next [...] Feel free to text page me through Leeo, login [employer] Current Meds ??? 0.9% NaCl 3 mL [...] monitor patient's renal function. Please contact the [facility] pharmacy department ([phone]) with any questions. Marilynn Hyman PharmD 03/12/2022 [...] Terrell - 03/11/2022 1:09 PM CDT Discharge Medical Records Technician received request from Lakesha Francis APRN to arrange follow- up appointment for Patient with Vascular. This magnetic tape typewriter operator called [phone] and spoke with Yana. Medical Records Technician was able to obtain follow-up appointment for Patient with Dr. Membreno on Thursday March 24, 2022 at 10:45 am.No further follow-up needs from industrial truck driver indicated at this time. Marcella Terrell, Discharge Medical Records Technician 03/11/2022 * Shakila Medina, OT - 03/11/2022 11:26 AM CDT [facility] Department of Physical Medicine & Rehabilitation Progress Note Patient: Mojgan Tabor [facility] Record Number: [id number] Date of : 1960 Age: [age] year old 03/11/22 1100 Missed Visit Missed Visit MD Rai (decreased responsiveness at bedside) Will re-initiate OT eval as appropriate and schedule allows. * Simona Ramirez, PT - 03/11/2022 10:33 AM CDT [facility] Department of Physical Medicine & Rehabilitation Progress Note Patient: Mojgan Tabor [facility] Record Number: [id number] Date of : 1960 Age: [age] year [...] Feel free to text page me through Leeo, login [email or web address] Current Meds ??? 0.9% NaCl [...] Last dc in 12/[address] [facility]. Continue to monitor for placement. Ivy Mata RN, BSN Visual Effects Editor [phone] * Ivy Mata RN - 03/10/2022 1:49 PM CDT Case Management Initial Assessment Case Management screen completed & Welcome Letter given. Anticipated level of care at discharge: Jail - Skilled Facility Discharge Plans: Family wants [...] Emergency Contact: Adriane Hilliard Mobile Relation: Sister Domestic Maid needed? No Secondary Emergency Contact: Amarjit Tabor [facility] Relation: Brother Patient or product support sales representative requests care coordination reach out [...] have money to get more.: Never true [employer] Resources Provided: Other (comment) Welcome Hostess Referral: Yes If patient requires HHC at discharge, he/she requests: Patient agreeable to speak with [facility] Home Will continue to follow. For any questions or needs please contact: Visual Effects Editor Name/Phone number: Ivy Mata RN [phone] * Suzan Hope MD - 03/10/2022 1:27 PM CDT General Neurology Progress Note Hospital Course: 62yo M who was brought in from shelter due to 'worsening mental status.' Per chart, the patient has dementia and is not functional at baseline. At [facility], patient found to be tachycardic and febrile with pneumonia and bacteremia. No witnessed seizure or seizure-like activity noted. ?? Of note, patient has a history of refractory focal epilepsy and follows in [facility] epilepsy clinic. Hewas last seen in clinic on 02/16/22 where anti-seizure regimen (listed below in meds) were not changed. He was also admitted to the epilepsy monitoring unit from 12/21-01/07 to quantify seizure burden. During this admission, he had frequent subclinical electrographic seizures. Clobazam was added and valproic acid was increased and patient was discharged to a [facility] facility. Overnight: No events concerning for seizures [...] Jr., PharmD - 03/10/2022 12:45 PM CDT [facility] Pharmacy Medication History Note The current home/prior to admission (SPINNING MULE OPERATOR) medication list has been reviewed by [...] please do not hesitate to contact the [facility] pharmacy dept ([phone]). Thank you. Assessment Completed by: Rickie Shelton [...] Outcome: Progressing * Dina Thomas SLP - 03/10/2022 10:56 AM CDT [facility] Physical Medicine and Rehabilitation Swallow Treatment Patient: Mojgan Tabor Med Record Number: [id number] Date of : 1960 Age: [age] year [...] Pharyngeal: No dysphagia suspected Education/Interventions: While performing RESOURCE CONSERVATION SPECIALIST, Patient was instructed in: results of swallow evaluation, diet/liquid recommendations and swallowing strategies/aspiration precautions. Patient demonstrated Fair understanding of instructions given. Physician instructed in recommendations and indicated understanding. INFORMED CONSENT TO TREATMENT: Plan of care including recommended therapy, goals and frequency, discussed with patient who understands and agrees to proceed. Short Term Goals Patient will tolerate recommended diet w/o aspiration. Benzene Still Utility Operator Goal (s): Patient to be independent/baseline with [...] Feel free to text page me through Leeo, login [employer] Current Meds ??? 0.9% NaCl 3 mL [...] (Sister). -Patient needs in a NH from [facility] due to uncontrollable seizures. Was getting better. [...] 0.87 1.01 Recent Labs Component Name 03/09/22 04103/08/22 1455 03/05/22 1441 03/03/18 1745 01/30/18 1255 [...] interval not displayed. Recent Labs Component Name 03/08/227 03/08/22 1726 03/08/22 1455 12/31/21 0412 02/25/21 [...] Dr. Membreno 03/10. They asked the inpatient MORPHOLOGY TEACHER to see patient. -called vascular team: stated [...] patient, family and consults. * Dina Thomas, JOSIAS - 03/09/2022 11:49 AM CDT [facility] Physical Medicine and Rehabilitation Bedside Swallow Assessment Patient: Mojgan Tabor Med Record Number: [id number] Date of : 1960 Age: [age] year old Patient Active Problem List: Seizure (CMS/HCC) Cerebrovascular accident (CMS/HCC) Hyperlipidemia Hypertension Insomnia Low back pain Osteoporosis Truncal ataxia Therapeutic procedure Seizures (CMS/HCC) Alcohol abuse, uncomplicated Benign neoplasm of prostate Epilepsy, unspecified, not intractable, without status epilepticus (CMS/HCC) Difficulty in walking, not elsewhere classified Muscle weakness (generalized) Other specified rheumatoid arthritis, unspecified site ([facility]/HCC) Syncope and collapse Alzheimer's disease with early onset ([facility]) Cognitive communication deficit COVID-19 Dysphagia, oropharyngeal phase Hemiplegia and 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- dominant side ([facility]/HCC) History of CVA (cerebrovascular accident) Paroxysmal tachycardia, unspecified (CMS/HCC) Status epilepticus ([facility]/HCC) Acute encephalopathy Sepsis without acute organ dysfunction ([facility]) Past Medical History: Diagnosis Date ??? CVA (cerebral vascular accident) ([facility]/HCC) ??? HTN (hypertension) ??? Seizure ([facility]) In addition to the 1:1 evaluation of [...] Impression - Pharyngeal: Moderate Education/Interventions: While performing RESOURCE CONSERVATION SPECIALIST, Patient was instructed in: recommendations for NPO status given patient's elevated aspiration risk. Patient demonstrated Poor understanding of instructions given. INFORMED CONSENT TO TREATMENT: Plan of care including recommended therapy, goals and frequency, discussed with patient who understands and agrees to proceed. Short Term Goals Patient will demonstrate an improvement in oropharyngeal swallow function to warrant diet upgrade. Correction Goal (s): Patient to be independent/baseline with [...] Given - Contrast 03/08/2022 Vancomycin Administrations from JUL (last 72 hours) Date/Time Action Medication Dose Rate 03/08/22 3844 $ New Bag vancomycin (Vancocin) 1,750 mg [...] monitor patient's renal function. Please contact the [facility] pharmacy department ([phone]) with any questions. Cory Apple PharmD 03/09/2022 6:26 AM Resources: Vancomycin Protocol documented [...] following cerebral infarction affecting right non-dominant side ([facility] 05/25/2019 Priority: High ??? Alzheimer's disease with early onset ([facility]) 05/17/2019 Priority: High ??? Paroxysmal tachycardia, unspecified ([facility]) 05/16/2019 Priority: High ??? Alcohol abuse, uncomplicated 08/13/2015 Priority: High ??? Benign neoplasm of prostate 06/26/2015 Priority: High ??? Other specified rheumatoid arthritis, unspecified site ([facility]) 06/26/2015 Priority: High ??? Syncope and collapse 06/26/2015 Priority: High ??? Bacteremia 03/11/2022 Priority: Not Prioritized ??? Pneumonia 03/11/2022 Priority: Not Prioritized ??? Ulcer of left foot ([facility]) 03/11/2022 Priority: Not Prioritized ??? PAD (peripheral artery disease) ([facility]) 03/11/2022 Priority: Not Prioritized ??? Protein calorie malnutrition ([facility]) 03/11/2022 Priority: Not Prioritized ??? Sepsis without acute organ dysfunction ([facility]) 03/08/2022 Priority: Not Prioritized ??? Status epilepticus ([facility]) 12/30/2021 Priority: Not Prioritized ??? Acute encephalopathy 12/30/2021 Priority: Not Prioritized ??? Seizures ([facility]) 08/13/2020 Priority: Not Prioritized ??? Therapeutic procedure Priority: Not Prioritized ??? Cerebrovascular accident ([facility]) 06/13/2019 Priority: Not Prioritized ??? Insomnia 06/13/2019 Priority: Not Prioritized ??? Low back pain 06/13/2019 Priority: Not Prioritized ??? Osteoporosis 11/22/2018 Priority: Not Prioritized ??? Seizure ([facility]) 10/13/2017 Priority: Not Prioritized ??? Hypertension 07/24/2015 [...] Hepatology Fellow Division of Gastroenterology and Hepatology [facility] * Neha Palomino MD - 03/09/2022 12:05 [...] 2100 -- (!) 133 24 (!) 179/108 03/08/220 -- (!) 129 17 (!) 167/120 03/08/22 [...] QTC Calculation (Bezet) 446 ms Calculated P [place] 88 degrees Calculated R [place] 22 degrees Calculated T [place] 93 degrees Interpretation EKG SINUS TACHYCARDIA WITH OCCASIONAL PREMATURE VENTRICULAR COMPLEXES POSSIBLE LEFT ATRIAL ENLARGEMENT 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) ABNORMAL ECG WHEN COMPARED WITH ECG OF 30-DEC-2021 11:06, PREMATURE VENTRICULAR COMPLEXES ARE NOW PRESENT VENT. RATE HAS INCREASED BY [address] NO LONGER ELEVATED IN INFERIOR LEADS ST NO LONGER ELEVATED IN ANTERIOR LEADS Confirmed by SIRENA MARCELO MD ([id number]) on 03/08/2022 2:48:22 PM Procedure and Consults [facility] (From admission, onward) Start Ordered 03/08/22 1445 [...] this encounter Procedure Notes * Hansa Davis - 03/17/2022 3:03 PM CDTProcedure(s): EEG VIDEO MONITORING Pt has been disconnected from cEEG. While taking electrodes off, breakdown was noted at [facility]. Nurse was notified. * Sean Raymundo DO - 03/17/2022 9:47 AM CDT [facility] EEG REPORT Patient Name: Mojgan Tabor EEG#: [id number] Recording Start Time: 15:01 PM 03/16/2022 Epoch [...] of electrographic activity comprising of right frontotemporal eyvhl-olq-pevs waves of 1 Hz with admixed diffuse [...] visible to put on record. * Sean Raymundo DO - 03/12/2022 1:03 PM CDT EEG REPORT [...] artifact. Epileptiform discharges in the form of twnii-she-dbam wave complexes were occasionally identified over the [...] for Consult: PEG tube placement Requesting Team: NABIL Mclean Subjective: History of Present Illness: Mojgan Tabor is a 62 year old male with a PMHx of Refractory seizure disorder and CVA complicated by dysphagia and malnourishment with failure to maintain NG tube access for enteral feeding. Pt presented to [facility] on 03/08 by his family for worsening [...] 08/13/20 1558 07/18/19 1139 04/12/15 0350 04/11/15 06 WBC 9.3 11.4* 9.5 12.7* 9.9 - [...] not displayed. Recent Labs Component Name 03/23/22 03303/22/22 0351 03/21/22 0219 NA 140 141 144 CL 106 106 110* CO2 24 28 28 BUN 9 5* 6* CREATININE 0.51* 0.49* 0.51* Recent Labs Component Name 03/17/22 1112 03/16/22 0619 03/14/22 2203 03/14/22 0458 03/12/22 0158 03/11/22 1059 AST 34 - - 35* - 60* ALT 21 - - - ALKPHOS 73 - - 73 - 71 TBILI 0.2 - - 0.3 - 0.4 ALB 1.8* 1.6* 1.8* 1.7* - 1.9* - = values in this interval not displayed. Imaging: CT HEAD WO CONTRAST Result Date: 03/18/2022 IMPRESSION: 1.No acute intracranial hemorrhage, midline shift, or significant mass effect. Procedures: Per care everywhere: Colonoscopy 11/22/16: [facility] (3 small polyps removed) EGD 11/22/16: [facility] (antral erosion, mild duodenal bulb erythema) Assessment [...] increase likelihood of poor wound healing. Per RESOURCE CONSERVATION SPECIALIST evaluation pt severe risk for aspiration and [...] sister/M, and from there obtain consent from [facility]. Timing of PEG placement TBD. Please ensure [...] Archie Carreno MD Gastroenterology & Hepatology Fellow [facility] AL ASSISTANT MEDICAL ASSISTANT * Ezio Sorto RD/ONI - 03/23/2022 10:38 AM CDTAssociated Order(s): IP CONSULT TO NUTRITIONAL SERV Clinical Nutrition Brief Note Nutrition Recommendations: NPO per RESOURCE CONSERVATION SPECIALIST TF recommendation if pt/family agree to EN [...] continue to monitor. Estimated Energy Needs: KCAL: 2039 (30kcal/kg ABW) Protein (g): 82-102 (1.2-1.5g/kg IBW) Fluid (ml): 1 ml/kcal Needs based on: Kcal/kg- (Comment) (based on ABW of 68kg) Recommended Access Route: TF Ascom # [id number] * Elmo Lawrence DO - 03/16/2022 11:21 AM CDTAssociated Order(s): IP CONSULT TO NEUROLOGY Neurology Consult Note Patient: Mojgan Tabor Age: [age] year old Admission Date and Time: 03/08/2022 Reason for consult: concern for sz activity History of Presenting Illness: Mojgan Tabor is a 62 year old male Pt is a 62 y/o m with a pmhx of HTN, HLD, PVD, CVA (2014), refractory epilepsy, Alzheimer's (early onset), alcohol abuse, and cervical osteoarthritis. Neurology was consulted due to a SCROLL MACHINE OPERATOR paged for unresponsiveness. At 1012 on 03/16/22 [...] a pmhx of HTN, HLD, PVD, CVA (2014), priorhead injury, refractory epilepsy, Alzheimer's (early onset), alcohol abuse, and cervical osteoarthritis. Neurology was consulted due to a SCROLL MACHINE OPERATOR page for unresponsiveness, concern for sz activity. [...] on this patient on neurology rounds. The date of the service is 03/17/2022. NEUROLOGY ATTENDING NOTE [...] q8h Jack Trent DO 3 mL at 03/17/22 1346 And 0.9% NaCl injection 1-10 mL 1-10 mL Intracatheter PRN Jack Trent DO 10 mL at 03/16/22 0148 acetaminophen [...] 270 mL IVPB 2,000 mg Intravenous q12h Petra Fuentes MD metroNIDAZOLE (Flagyl) tablet 500 mg [...] 110 (!) 118 (!) 111 Resp: 18 18 18 Temp: 98.6 ??F (37 ??C) 97.3 [...] Epilepsy, unspecified, not intractable, without status epilepticus ([facility]) 05/25/2019 Priority: High Bacteremia 03/11/2022 Priority: Not Prioritized Pneumonia 03/11/2022 Priority: Not Prioritized Ulcer of left foot ([facility]) 03/11/2022 Priority: Not Prioritized PAD (peripheral artery disease) ([facility]) 03/11/2022 Priority: Not Prioritized Protein calorie malnutrition ([facility]) 03/11/2022 Priority: Not Prioritized Sepsis without acute organ dysfunction ([facility]/HCC) 03/08/2022 Priority: Not Prioritized Hypertension 07/24/2015 Priority: [...] CDTAssociated Order(s): IP CONSULT TO VASCULAR SURGERY [facility] Vascular Surgery Consult Note Name: Mojgan Tabor : 1960 Date of Service: 03/12/22 Attending Surgeon: Dr. Membreno Reason for Consult: Left Foot wound HPI: This is a 62 year old male with pmh of htn, CVA, HLD, alzheimer, and epilepsy brought to hospital after patient's family noted that he has worsening mental status at shelter. Patient was initially consulted to the vascular [...] (cerebral vascular accident) (CMS/HCC) HTN (hypertension) Seizure ([facility]) No past surgical history on file. No [...] file. Data: Labs: Recent Labs Component Name 03/12/22 0158 03/11/22 1059 03/10/22 1147 WBC 12.4* 11.7* 15.4* HGB 11.3* 11.1* 11.9* HCT 33.4* 32.5* 36.1 MCV 94.1 93.7 96.0 Recent Labs Component Name 03/12/22 0158 03/11/22 1059 03/10/22 1147 NA 139 139 140 [...] AST - 60* - 75* 74* - 14 - 18 23 ALT - 26 - 27 26 - 10 - 9 11 ALKPHOS - 71 - 74 84 - 75 - 86 88 - = values in this interval not displayed. Recent Labs Component Name 03/11/22 1059 03/05/22 1110 02/25/21 1134 INR 1.2 1.0 1.1 No results for input(s): PHART, PO2ART, IOY3TTD, BEART in the last 09617 hours. I/O last 3 completed shifts: In: [...] pelvis. > Dictated by Brandee Celestin MD (physician president). I, John Graham MD have personally [...] up in week after discharge in Dr. Mebmreno's outpatient clinic - Vascular surgery will sign off at this time. Please page with questions or concerns. Patient has been seen and discussed with my in warehouse manager Dr. Koenig and attending physicianDr. [...] from the original note were not included. [facility] Infectious Diseases Consultation Patient Name: Mojgan Tabor 1960 Room: [facility] Date of Admission: 03/08/2022 Date of Service: 03/11/2022 Primary Care Physician: Joyce Luevano, INSTRUCTIONAL LEADER-MUSICAL INSTRUMENT MAKER OR REPAIRER Attending Physician: Blair Mojica MD Reason for consultation: MSSA bacteremia HPI: Mojgan Tabor??is a 62 year old?? male??with PMH of HTN, HLD, PVD, CVA (2014), priorhead injury (from a fall?), refractory epilepsy, Alzheimer's (early onset), alcohol abuse, and cervical osteoarthritis, who presented to [facility] from [facility] on 03/08/2022 for worsening mentation. Family came [...] disintegrating, (Zofran ODT) 4 MG tablet 02/02/22 Provider, MD Filemon polyethylene glycol 3350 (Miralax) 17 g packet [...] M.D., PhD. Infectious Diseases (Team 2) Pager [phone] * Angelina Gould MSW - 03/11/2022 10:50 AM CDTAssociated Order(s): IP CONSULT TO CARRIER DRIVER Facility Admission Note Admitted From: [facility] Level of Care (Skilled, Residential, Assisted, Assisted, [place]): [place] [facility] Primary Payor at Facility: [facility] Sam patient Return: Yes Facility Contact: Myra/admissions [phone] Physician Following at Facility: Does Patient/Family want them to Return?: Yes Family/Support Name/Contact: Adriane Hilliard (sister) [phone] Number of Skilled Days Used (if applicable): n/a Prior Level of Functioning: Uses w/c Disposition/Anticipated Level of Care at Discharge: [place] [facility] Anticipated mode of transport: ambulance Special Testing Requirements: Comments: Per conversation with med spa manager, family would like if patient could go to rehab at [facility] again if possible Name/Phone number: CLARITA Ochoa [phone] * Ezio Sorto RD/LD - 03/10/2022 9:51 AM CDTAssociated Order(s): IP CONSULT TO NUTRITIONAL SERV Initial Nutrition Assessment Brief Synopsis: Patient is dx with malnutrition; Specific criteria can be found in assessment below Nutrition Plan: NPO now Further diet per RESOURCE CONSERVATION SPECIALIST Add Ensure Plus High Protein (1.5 kcal) [...] wasting noted. Meets the severe malnutrition criteria. RESOURCE CONSERVATION SPECIALIST recommended NPO yesterday. See TF recs above [...] Pain affecting intake: No Estimated Needs: KCAL: 2039 (30kcal/kg ABW) Protein (g): [...] 62yo M who was brought in from shelter due to 'worsening mental status.' Per chart, the patient has dementia and is not functional at baseline. At [facility], patient found to be tachycardic and febrile with pneumonia and bacteremia. No witnessed seizure or seizure-like activity noted. Of note, patient has a history of refractory focal epilepsy and follows in [facility] epilepsy clinic. Hewas last seen in clinic on 02/16/22 where anti-seizure regimen (listed below in meds) were not changed. He was also admitted to the epilepsy monitoring unit from 12/21-01/07 to quantify seizure burden. During this admission, he had frequent subclinical electrographic seizures. Clobazam was added and valproic acid was increased and patient was discharged to a [facility] facility. Medical Hx- hypertension, CVA, hyperlipidemia, Alzheimer's [...] refractory epilepsy. He was transferred from his shelter withworsening mental status. He has a history [...] mL Intracatheter PRN Bisesi, Jack R, DO acetaminophen (Tylenol) suppository 650 mg 650 [...] Pulse: 107 (!) 117 (!) 114 Resp: 16 22 Temp: 98.7 ??F (37.1 ??C) 98.8 ??F [...] CDTAssociated Order(s): IP CONSULT TO VASCULAR SURGERY [facility] Vascular Surgery Consult Note Name: Mojgan Tabor : 1960 Date of Service: 03/09/22 Attending Surgeon: Dr. Membreno Reason for Consult: LLE 2nd and 3rd toe wounds HPI: This is a 62 year old male with pmh of htn, CVA, HLD, alzheimer, and epilepsy brought to hospital after patient's family noted that he has worsening mental status at shelter. Patient was diagnosed w/ pneumonia and he [...] 1.0 No results for input(s): PHART, PO2ART, ZOY2QZF, BEART in the last 57447 hours. I/O last 3 completed shifts: In: [...] pelvis. > Dictated by Brandee Celestin MD (physician president). I, John Graham MD have personally [...] been seen and discussed with my in warehouse manager Dr. koenig and attending physicianDr. Membreno. Riky Williamson MD Resident Physician [facility] Department of Surgery 03/09/2022 2:24 PM Attending/Teaching [...] Left above-knee amputation. SURGEON: Anna Membreno M.D. DESK CLERK: Brian Carmona M.D. and Riky Williamson M.D. [...] were not totaled. Urine output was none. 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 She is [...] Alcohol use disorder, alzheimer's, presents toED from [place] after family visited today and found the [...] lower leg: No edema. Comments: Left distal wet machine tender to palpation Lymphadenopathy: Cervical: No cervical [...] to previously reported susceptibility testing, specimen number: [id number] MRSA DNA PCR - Abnormal; Notable for [...] Change in Procalcitonin Calculator is available at [email or web address] If clinical picture has not improved and PCT remains high, reevaluate and consider treatment failure or other causes. DIFFERENTIAL MANUAL - Abnormal; Notable for the following components: Neutrophils Absolute Manual 16.79 (*) Monocytes Absolute Manual 4.14 (*) Lymphocyte % Manual 9 (*) Monocytes % Manual 18 (*) Luanne Cells 1+ (*) All other components within [...] acid amplification assay performance was validated by [facility]. This test has been authorized by the [...] DATE/TIME OF EXAM: 03/15/2022 12:57 AM, LOCATION [facility] INDICATION: R78.81: Bacteremia I73.9: PAD (peripheral artery disease) ([facility]) ADDITIONAL CLINICAL INFORMATION: Ordering Provider Reason For [...] DATE/TIME OF EXAM: 03/11/2022 11:15 AM, LOCATION [facility] INDICATION: R78.81: Bacteremia ADDITIONAL CLINICAL INFORMATION: [...] DATE/TIME OF EXAM: 03/10/2022 4:04 PM, LOCATION [facility] INDICATION: G93.40: Acute encephalopathy EXAMINATION: Computed [...] DATE/TIME OF EXAM: 03/08/2022 10:05 PM, LOCATION [facility] INDICATION: R50.9: Fever, unspecified fever cause [...] pelvis. > Dictated by Brandee Celestin MD (physician president). John Thomason MD have personally reviewed and interpreted this examination/study. > Interpreting Provider: John Graham MD on 03/09/2022 9:27 AM XR FOOT LEFT 3VW OR MORE Final Result PROCEDURE: XR FOOT LEFT 3VW OR MORE, DATE/TIME OF EXAM: 03/08/2022 3:38 PM, LOCATION [facility] INDICATION: R50.9: Fever, unspecified fever cause [...] noted. Report dictated by Param Eubanks MD (physician president). Eron Thomason have personally reviewed and interpreted this examination/study. > Interpreting Provider: Eron Payton on 03/08/2022 4:48 PM XR CHEST 1VW PORTABLE Final Result PROCEDURE: XR CHEST 1VW PORTABLE, DATE/TIME OF EXAM: 03/08/2022 3:14 PM, LOCATION [facility] INDICATION: R50.9: Fever, unspecified fever cause ADDITIONAL CLINICAL INFORMATION: Ordering Provider Reason For Exam: infection? SOB COMPARISON: 05/01/2021 FINDINGS/IMPRESSION: Mild left basilar atelectasis or airspace disease. A small left pleural effusion cannot be excluded. No pneumothorax. Heart size and mediastinal contours are normal. No acute osseous abnormality. Report dictated by Param Eubanks MD (physician president). I, Eron Payton have personally reviewed and interpreted this examination/study. > Interpreting Provider: Eron Payton on 03/08/2022 4:44 PM INTERVENTIONS: Medications 0.9% NaCl injection 3 mL (3 mL Intracatheter $ Given 03/17/22 0598) And 0.9% NaCl injection 1-10 mL (10 mL Intracatheter $ Given 03/16/22 0148) cefTRIAXone (Rocephin) 2,000 mg in 0.9% NaCl IV 50 mL IVPB (0 mg Intravenous Stopped 03/16/22 1245) iopamidol (Isovue 370) 76 % contrast (100 mL Intravenous $ Given - Contrast 03/08/222150) amLODIPine (Norvasc) tablet 5 mg (5 mg [...] 100 mg (100 mg Oral Not Administered 03/16/2259) levETIRAcetam (Keppra) tablet 2,000 mg (2,000 mg Oral $ Given 03/16/222099) lacosamide (Vimpat) tablet 200 mg (200 mg Oral $ Given 03/16/222099) polyethylene glycol 3350 (Miralax) packet 17 g (has no administration in time range) artificial tears ophthalmic solution 1 drop (has no administration in time range) divalproex DR (Depakote) tablet 1,000 mg (1,000 mg Oral Not Administered 03/16/22 0957) perflutren lipid microsphere (Definity) injection 0.5 mL (has no administration in time range) metroNIDAZOLE (Flagyl) tablet 500 mg (500 mg Oral $ Given 03/17/22 0550) gadobutrol (Gadavist) injection (6 mL Intravenous $ Given - Contrast 03/15/22 0057) heparin injection 5,000 Units (5,000 Units Subcutaneous $ Given 03/16/22 2100) acetaminophen (Tylenol) tablet 1,000 mg (1,000 mg Oral $ Given 03/16/22 2100) polyethylene glycol 3350 (Miralax) packet 17 g (17 g Oral Not Administered 03/16/22 0959) LORazepam (Ativan) injection 1 mg (has no administration in time range) oxyCODONE (Roxicodone) oral solution 2.5 mg (has no administration in time range) Or oxyCODONE (Roxicodone) oral solution 5 mg (has no administration in time range) divalproex sprinkle (Depakote Sprinkle) capsule 750 mg (750 mg Oral $ Given 03/16/22 1904) And divalproex sprinkle (Depakote Sprinkle) capsule 500 mg (has no administration in time range) lactated ringers IV bolus (0 mL/kg ?? 68 kg Intravenous Stopped 03/08/22 1917) cefTRIAXone (Rocephin) 2,000 mg in 0.9% NaCl [...] mg (1 mg Oral $ Given 03/14/22 1198) magnesium sulfate 2 g in 50 mL bolus (0 g Intravenous Stopped 03/14/22 0959) sodium - potassium phosphates (K Phos Neutral) tablet 2 tablet (2 tablets Oral $ Given 03/14/22 2817) Procedures ED COURSE Patient seen and evaluated, available studies reviewed ED Course as of 03/17/22750Mar 08, 2022 1506 Rocephin given as well as sepsis fluids at this time [DB] 1515 EKG completed at 2:05 p.m.. Sinus tachycardia with a rate of 123. Will normal [place] and QT intervals. No evidence of ST [...] ED Course User Index [DB] Jack Trent R, DO Clinical Impressions as of 03/17/22750 Fever, unspecified fever cause Sepsis without acute organ dysfunction, due to unspecified organism (CMS/HCC) Pneumonia of left lung due to infectious organism, unspecified part of lung Lactic acidosis Altered mental status, unspecified altered mental status type Tachycardia MEDICAL DECISION MAKING In short, this is a 62 year old patient brought in from [place] for AMS. Patient was febrile and tachycardic [...] DATE/TIME OF EXAM: 03/08/2022 3:38 PM, LOCATION [facility] INDICATION: R50.9: Fever, unspecified fever cause [...] noted. Report dictated by Param Eubanks MD (physician president). IEron have personally reviewed and interpreted this examination/study. > Interpreting Provider: Eron Payton on 03/08/2022 4:48 PM XR CHEST 1VW PORTABLE Final Result PROCEDURE: XR CHEST 1VW PORTABLE, DATE/TIME OF EXAM: 03/08/2022 3:14 PM, [facility] INDICATION: R50.9: Fever, unspecified fever cause ADDITIONAL CLINICAL INFORMATION: Ordering Provider Reason For Exam: infection? SOB COMPARISON: 05/01/2021 FINDINGS/IMPRESSION: Mild left basilar atelectasis or airspace disease. A small left pleural effusion cannot be excluded. No pneumothorax. Heart size and mediastinal contours are normal. No acute osseous abnormality. Report dictated by Param Eubanks MD (physician president). I, Eron Payton have personally reviewed [...] Time reviewing labs/radiographs: 10 minutes Time with Interior Design Principal services: 0 minutes I was directly involved [...] Means of arrival: Comments: [id number] AMS from [place] documented in this encounter Miscellaneous Notes * Coding Query - Petra Fuentes MD - 03/18/2022 6:58 AM CDT DOCUMENTATION CLARIFICATION REQUEST TO: Dr. Fuentes, FROM: Agnieszka Palumbo RN CCDS Email: [email or web address] Please clarify and document if the patient is being treated/monitored for: - Acute hypoxic respiratory failure, present on admission - Other explanation of clinical findings (please specify) - Unable to determine (no explanation for clinical findings) The medical record reflects the following clinical evidence: Clinical Indicators: ED Note 03/08 O2 Saturation to 89% via room air, placed on 2 liters 03/08 O2 Saturation 90-100% on 2 liters via nasal cannula, RR 10-[address] 03/08 atelectasis, concern for aspiration pneumonia, multiple bilateral [...] 10:24 AM CDT RAPID RESPONSE EVENT NOTE [address] [address] Patient: Mojgan Tabor Location: : 1960 Reason for Admission: No admission diagnoses are documented for this encounter. Provider Teams Team Primary Team Specialty Team Pager [facility] MED 2 Yes Internal Medicine [facility] Vascular Team No Vascular Surgery Event Date/Time: 03/16/2022 1010 Summary of Events: 1010 - The Rapid Response Team (SCROLL MACHINE OPERATOR) was paged for patient becoming unresponsive. 1012 [...] vital signs as charted 1028 - Dr. Hoque at bedside to assess patient. Prn ativan [...] (37.2 ??C) 96 18 126/79 96 % 03/15/22 2042 98.3 ??F (36.8 ??C) 82 18 118/68 [...] 11:27 AM CDT RAPID RESPONSE EVENT NOTE [id number] [place] [address] Patient: Mojgan Tabor Location: : 1960 Reason for Admission: No admission diagnoses are documented for this encounter. Provider Teams Team Primary Team Specialty Team Pager [facility] 2 Yes Internal Medicine Event Date/Time: 03/11/2022 10:42 Summary of Events: The Rapid Response Team (SCROLL MACHINE OPERATOR) was paged for decreased responsiveness. GCS 13 [...] (!) 129 -- -- 97 % 03/10/22 194 99.2 ??F (37.3 ??C) (!) 124 18 [...] CTAB Neuro: arousable to verbal stimuli, wouldn't communication spec hands on command Plan: Will follow up [...] Palomino FROM: Agnieszka Palumbo RN CCDS Email: [email or web address] Please clarify and document if the patient [...] via nasal cannula, RR 10-[address] 03/08 atelectasis, concern for aspiration pneumonia, multiple bilateral [...] Description 12/05/2024 1:00 PM CDT Office Visit [facility] - Neurology [address] [place] [address], [facility] [place] [id number] Sean Raymundo, [address] [place] [address] [place] [id number] documented as of this encounter Procedures Procedure [...] TOTAL) AM Draw 03/26/2022 7:25 AM CDT [place] ED EGD FLEX TRANSORAL DX 03/25/2022 4:35 [...] 10:1 6 AM CDT Dry gangrene (HCC) AMPUTATION BELOW-KNEE 03/15/2022 10:09 AM CDT Dry gangrene (HCC) VANCOMYCIN LEVEL [...] POINT OF CARE (04/01/2022 8:13 AM CDT) [facility] Glucose WB/POC 126(H) 70 - 115 mg/dL 04/01/2022 8:14 AM CDT [facility] Specimen Type Cap Fingerstick 2021 8:14 AM CDT [facility] Blood BLOOD SPECIMEN / Unknown 04/01/2022 8:13 AM CDT 04/01/2022 8:14 AM CDT Dante Nuno MD LAB - POINT OF CARE ORDERABLES Performing Organization Address City/State/[facility] Co de Phone Number [facility] [address] [place] [address], [facility] [phone] * (ABNORMAL) BASIC METABOLIC PANEL (CALCIUM TOTAL) (04/01/2022 6:08 AM CDT) [facility] BUN 12 7 - 26 mg/dL 04/01/2022 6:50 AM T [facility] Creatinine 0.49(L) 0.71 - 1.16 mg/dL 04/01/2022 6:50 AM [facility] Sodium 138 136 - 145 mmol/L 04/01/2022 6:50 AM T [facility] Potassium 4.3 3.5 - 4.5 mmol/L 04/01/2022 6:50 AM [facility] Chloride 104 98 - 107 mmol/L 04/01/2022 6:50 AM [facility] CO2 29 22 - 29 mmol/L 04/01/2022 6:50 AM T [facility] Glucose 118(H) 70 - 115 mg/dL 04/01/2022 6:50 AM T [facility] Calcium 9.2 8.4 - 10.2 mg/dL 04/01/2022 6:50 AM [facility] Anion Gap 9 8 - 18 04/01/2022 6:50 AM [facility] BUN/Creatinine Ratio 24(H) 7 - 23 04/01/2022 6:50 AM [facility] Osmolality Calculated 287 270 - 300 mOsm/kg 04/01/2022 6:50 AM [facility] eGFR by CKD-EPI >90 >=90 mL/min/1.7 3 m2 04/01/2022 6:50 AM [facility] Blood BLOOD SPECIMEN / Unknown Lab Venipuncture / Unknown 04/01/2022 6:08 AM CDT 04/01/2022 6:20 AM T Petra Fuentes MD LAB - CHEMISTRY MARSAHL MEDEROS [place] Organization Address City/State/ZIP Co de Phone Number [address] [address], [facility] [phone] * (ABNORMAL) CBC W/O DIFFERENTIAL (04/01/2022 6:08 AM T) WBC 8.2 3.5 - 10.5 10? 3 /uL 04/01/2022 6:26 AM [facility] RBC 3.43(L) 4.30 - 5.70 10? 6 /uL 04/01/2022 6:26 AM [facility] Hemoglobin 11.0(L) 12.0 - 17.6 g/dL 04/01/2022 6:26 AM [facility] Hematocrit 33.9(L) 35.2 - 51.7 % 04/01/2022 6:26 AM [facility] MCV 98.8(H) 80.7 - 98.3 fL 04/01/2022 6:26 AM [facility] MCH 32.1 26.7 - 34.0 pg 04/01/2022 6:26 AM [facility] MCHC 32.4 30.8 - 35.9 g/dL 04/01/2022 6:26 AM [facility] RDW-SD 51.7(H) 36.0 - 50.0 fL 04/01/2022 6:26 AM T [facility] RDW-CV 14.1 11.2 - 14.8 % 04/01/2022 6:26 AM T [facility] Platelet Count 219 150 - 400 10? 3 /uL 04/01/2022 6:26 AM T [facility] MPV 11.2 9.4 - 12.9 fL 04/01/2022 6:26 AM T [facility] nRBC Absolute 0.00 0 10? 3 /uL 04/01/2022 6:26 AM CDT [facility] nRBC Auto 0.0 0 /100 WBC 04/01/2022 6:26 AM T [facility] Blood BLOOD SPECIMEN / Unknown Lab Venipuncture / Unknown 04/01/2022 6:08 AM CDT 04/01/2022 6:19 AM CDT Petra Fuentes MD LAB - HEMATOLOGY ORD ERABLES [address] [address], [place] [phone] * GLUCOSE - POINT OF CARE (03/31/2022 11:40 PM CDT) Glucose WB/POC 112 70 - 115 mg/dL 03/31/2022 11:41 PM CDT [facility] Specimen Type Cap Fingerstick 2021 11:41 PM T [facility] Blood BLOOD SPECIMEN / Unknown 03/31/2022 11:40 PM CDT 03/31/2022 11:41 PM CDT Dante Nuno MD LAB - POINT OF CARE ORDERABLES [address] [address], [place] [phone] * (ABNORMAL) GLUCOSE - POINT OF CARE (03/31/2022 5:31 PM CDT) Glucose WB/POC 127(H) 70 - 115 mg/dL 03/31/2022 5:39 PM CDT [facility] Specimen Type Cap Fingerstick 2021 5:39 PM CDT [facility] Blood BLOOD SPECIMEN / Unknown 03/31/2022 5:31 PM CDT 03/31/2022 5:39 PM CDT Dante Nuno MD LAB - POINT OF CARE ORDERABLES [address] [address], [place] [phone] * GLUCOSE - POINT OF CARE (03/31/2022 12:28 PM CDT) Glucose WB/POC 94 70 - 115 mg/dL 03/31/2022 12:33 PM CDT [facility] Specimen Type Cap Fingerstick 2021 12:33 PM CDT [facility] Blood BLOOD SPECIMEN / Unknown 03/31/2022 12:28 PM CDT 03/31/2022 12:33 PM CDT Dante Nuno MD LAB - POINT OF CARE ORDERABLES Performing Organization Address City/[facility]/ZIP Co de Phone Number [address] [address], [place] [phone] * GLUCOSE - POINT OF CARE (03/31/2022 7:45 AM CDT) Glucose WB/POC 114 70 - 115 mg/dL 03/31/2022 7:46 AM CDT [facility] Specimen Type Cap Fingerstick 2021 7:46 AM CDT [facility] Blood BLOOD SPECIMEN / Unknown 03/31/2022 7:45 AM CDT 03/31/2022 7:46 AM CDT Dante Nuno MD LAB - POINT OF CARE ORDERABLES [address] [address], [place] [phone] * (ABNORMAL) BASIC METABOLIC PANEL (CALCIUM TOTAL) (03/31/2022 6:37 AM CDT) BUN 14 7 - 26 mg/dL 03/31/2022 8:05 AM [facility] Creatinine 0.46(L) 0.71 - 1.16 mg/dL 03/31/2022 8:05 AM [facility] Sodium 137 136 - 145 mmol/L 03/31/2022 8:05 AM [facility] Potassium 4.4 3.5 - 4.5 mmol/L 03/31/2022 8:05 AM [facility] Chloride 102 98 - 107 mmol/L 03/31/2022 8:05 AM [facility] CO2 31(H) 22 - 29 mmol/L 03/31/2022 8:05 AM [facility] Glucose 104 70 - 115 mg/dL 03/31/2022 8:05 AM [facility] Calcium 9.3 8.4 - 10.2 mg/dL 03/31/2022 8:05 AM [facility] Anion Gap 8 8 - 18 03/31/2022 8:05 AM [facility] BUN/Creatinine Ratio 30(H) 7 - 23 03/31/2022 8:05 AM [facility] Osmolality Calculated 285 270 - 300 mOsm/kg 03/31/2022 8:05 AM [facility] eGFR by CKD-EPI >90 >=90 mL/min/1.7 3 m2 03/31/2022 8:05 AM [facility] Blood BLOOD SPECIMEN / Unknown Lab Venipuncture / Unknown 03/31/2022 6:37 AM CDT 03/31/2022 7:35 AM CDT Petra Fuentes MD LAB - CHEMISTRY MARSHAL Diana Organization Address City/State/ZIP Co de Phone Number [facility] [address] [place] [address], [facility] [phone] * (ABNORMAL) CBC W/O DIFFERENTIAL (03/31/2022 6:37 AM CDT) WBC 8.5 3.5 - 10.5 10? 3 /uL 03/31/2022 7:46 AM [facility] RBC 3.34(L) 4.30 - 5.70 10? 6 /uL 03/31/2022 7:46 AM [facility] Hemoglobin 10.8(L) 12.0 - 17.6 g/dL 03/31/2022 7:46 AM [facility] Hematocrit 33.0(L) 35.2 - 51.7 % 03/31/2022 7:46 AM [facility] MCV 98.8(H) 80.7 - 98.3 fL 03/31/2022 7:46 AM [facility] MCH 32.3 26.7 - 34.0 pg 03/31/2022 7:46 AM [facility] MCHC 32.7 30.8 - 35.9 g/dL 03/31/2022 7:46 AM [facility] RDW-SD 51.2(H) 36.0 - 50.0 fL 03/31/2022 7:46 AM [facility] RDW-CV 14.2 11.2 - 14.8 % 03/31/2022 7:46 AM [facility] Platelet Count 238 150 - 400 10? 3 /uL 03/31/2022 7:46 AM [facility] MPV 12.2 9.4 - 12.9 fL 03/31/2022 7:46 AM [facility] nRBC Absolute 0.00 0 10? 3 /uL 03/31/2022 7:46 AM [facility] nRBC Auto 0.0 0 /100 WBC 03/31/2022 7:46 AM [facility] Blood BLOOD SPECIMEN / Unknown Lab Venipuncture / Unknown 03/31/2022 6:37 AM CDT 03/31/2022 7:35 AM T Petra Fuentes MD LAB - HEMATOLOGY ORD ERABLES [facility] [address] [place] [address], [place] [phone] * (ABNORMAL) GLUCOSE - POINT OF CARE (03/30/2022 5:14 PM CDT) Glucose WB/POC 130(H) 70 - 115 mg/dL 03/30/2022 5:14 PM CDT [facility] Specimen Type Cap Fingerstick 2021 5:14 PM CDT [facility] Blood BLOOD SPECIMEN / Unknown 03/30/2022 5:14 PM CDT 03/30/2022 5:14 PM CDT Dante Nuno MD LAB - POINT OF CARE ORDERABLES [facility] [address] [place] [address], [place] [phone] * GLUCOSE - POINT OF CARE (03/30/2022 12:22 PM CDT) Glucose WB/POC 98 70 - 115 mg/dL 03/30/2022 12:31 PM CDT [facility] Specimen Type Cap Fingerstick 2021 12:31 PM CDT [facility] Blood BLOOD SPECIMEN / Unknown 03/30/2022 12:22 PM CDT 03/30/2022 12:31 PM CDT Dante Nuno MD LAB - POINT OF CARE ORDERABLES [facility] [address] [place] [address], [place] [phone] * (ABNORMAL) GLUCOSE - POINT OF CARE (03/30/2022 7:41 AM CDT) Glucose WB/POC 118(H) 70 - 115 mg/dL 03/30/2022 7:42 AM CDT [facility] Specimen Type Cap Fingerstick 2021 7:42 AM CDT [facility] Blood BLOOD SPECIMEN / Unknown 03/30/2022 7:41 AM CDT 03/30/2022 7:41 AM CDT Dante Nuno MD LAB - POINT OF CARE ORDERABLES [facility] [address] [place] [address], [facility] [phone] * (ABNORMAL) BASIC METABOLIC PANEL (CALCIUM TOTAL) (03/30/2022 2:16 AM CDT) BUN 13 7 - 26 mg/dL 03/30/2022 3:55 AM [facility] Creatinine 0.55(L) 0.71 - 1.16 mg/dL 03/30/2022 3:55 AM [facility] Sodium 140 136 - 145 mmol/L 03/30/2022 3:55 AM [facility] Potassium 4.9(H) 3.5 - 4.5 mmol/L 03/30/2022 3:55 AM [facility] Chloride 103 98 - 107 mmol/L 03/30/2022 3:55 AM [facility] CO2 26 22 - 29 mmol/L 03/30/2022 3:55 AM [facility] Glucose 82 70 - 115 mg/dL 03/30/2022 3:55 AM [facility] Calcium 9.6 8.4 - 10.2 mg/dL 03/30/2022 3:55 AM [facility] Anion Gap 16 8 - 18 03/30/2022 3:55 AM [facility] BUN/Creatinine Ratio 24(H) 7 - 23 03/30/2022 3:55 AM [facility] Osmolality Calculated 289 270 - 300 mOsm/kg 03/30/2022 3:55 AM [facility] eGFR by CKD-EPI >90 >=90 mL/min/1.7 3 m2 03/30/2022 3:55 AM [facility] Blood BLOOD SPECIMEN / Unknown Lab Venipuncture / Unknown 03/30/2022 2:16 AM CDT 03/30/2022 3:24 AM CDT Petra Fuentes MD LAB - CHEMISTRY MARSHAL MEDEROS [facility] [address] [place] [address], [facility] [phone] * (ABNORMAL) CBC W/O DIFFERENTIAL (03/30/2022 2:16 AM CDT) WBC 6.8 3.5 - 10.5 10? 3 /uL 03/30/2022 3:29 AM [facility] RBC 3.83(L) 4.30 - 5.70 10? 6 /uL 03/30/2022 3:29 AM [facility] Hemoglobin 12.2 12.0 - 17.6 g/dL 03/30/2022 3:29 AM [facility] Hematocrit 37.5 35.2 - 51.7 % 03/30/2022 3:29 AM [facility] MCV 97.9 80.7 - 98.3 fL 03/30/2022 3:29 AM [facility] MCH 31.9 26.7 - 34.0 pg 03/30/2022 3:29 AM [facility] MCHC 32.5 30.8 - 35.9 g/dL 03/30/2022 3:29 AM [facility] RDW-SD 51.1(H) 36.0 - 50.0 fL 03/30/2022 3:29 AM [facility] RDW-CV 14.2 11.2 - 14.8 % 03/30/2022 3:29 AM [facility] Platelet Count 240 150 - 400 10? 3 /uL 03/30/2022 3:29 AM [facility] MPV 11.9 9.4 - 12.9 fL 03/30/2022 3:29 AM [facility] nRBC Absolute 0.00 0 10? 3 /uL 03/30/2022 3:29 AM [facility] nRBC Auto 0.0 0 /100 WBC 03/30/2022 3:29 AM [facility] Blood BLOOD SPECIMEN / Unknown Lab Venipuncture / Unknown 03/30/2022 2:16 AM CDT 03/30/2022 3:24 AM CDT Petra Fuentes MD LAB - HEMATOLOGY ORD ERABLES [address] [address], [place] [phone] * (ABNORMAL) GLUCOSE - POINT OF CARE (03/29/2022 5:03 PM CDT) Glucose WB/POC 120(H) 70 - 115 mg/dL 03/29/2022 5:07 PM CDT [facility] Specimen Type Cap Fingerstick 2021 5:07 PM CDT [facility] Blood BLOOD SPECIMEN / Unknown 03/29/2022 5:03 PM CDT 03/29/2022 5:07 PM CDT Artur Mcgraw MD LAB - POINT OF CARE ORDERABLES Performing Organization Address City/[facility]/ZIP Co de Phone Number [address] [address], [place] [phone] * (ABNORMAL) GLUCOSE - POINT OF CARE (03/29/2022 11:55 AM CDT) Glucose WB/POC 133(H) 70 - 115 mg/dL 03/29/2022 12:00 PM CDT [facility] Specimen Type Cap Fingerstick 2021 12:00 PM CDT [facility] Blood BLOOD SPECIMEN / Unknown 03/29/2022 11:55 AM CDT 03/29/2022 12:00 PM CDT Artur Mcgraw MD LAB - POINT OF CARE ORDERABLES [address] [address], [place] [phone] * GLUCOSE - POINT OF CARE (03/29/2022 7:58 AM CDT) Glucose WB/POC 107 70 - 115 mg/dL 03/29/2022 8:06 AM [facility] Specimen Type Cap Fingerstick 2021 8:06 AM [facility] Blood BLOOD SPECIMEN / Unknown 03/29/2022 7:58 AM CDT 03/29/2022 8:06 AM CDT Artur Mcgraw MD LAB - POINT OF CARE ORDERABLES Performing Organization Address City/State/[facility] Co de Phone Number [facility] [address] [place] [address], [facility] [phone] * (ABNORMAL) BASIC METABOLIC PANEL (CALCIUM TOTAL) (03/29/2022 3:18 AM CDT) BUN 11 7 - 26 mg/dL 03/29/2022 6:39 AM [facility] Creatinine 0.50(L) 0.71 - 1.16 mg/dL 03/29/2022 6:39 AM [facility] Sodium 139 136 - 145 mmol/L 03/29/2022 6:39 AM [facility] Potassium 4.2 3.5 - 4.5 mmol/L 03/29/2022 6:39 AM [facility] Chloride 102 98 - 107 mmol/L 03/29/2022 6:39 AM [facility] CO2 28 22 - 29 mmol/L 03/29/2022 6:39 AM [facility] Glucose 96 70 - 115 mg/dL 03/29/2022 6:39 AM [facility] Calcium 9.3 8.4 - 10.2 mg/dL 03/29/2022 6:39 AM [facility] Anion Gap 13 8 - 18 03/29/2022 6:39 AM [facility] BUN/Creatinine Ratio 22 7 - 23 03/29/2022 6:39 AM [facility] Osmolality Calculated 287 270 - 300 mOsm/kg 03/29/2022 6:39 AM [facility] eGFR by CKD-EPI >90 >=90 mL/min/1.7 3 m2 03/29/2022 6:39 AM [facility] Blood BLOOD SPECIMEN / Unknown Lab Venipuncture / Unknown 03/29/2022 3:18 AM CDT 03/29/2022 6:12 AM CDT Petra Fuentes MD LAB - CHEMISTRY MARSH[facility]EROS Performing Organization Address [facility]/State/ZIP Co de Phone Number [facility] [address] [place] [address], [facility] [phone] * (ABNORMAL) CBC W/O DIFFERENTIAL (03/29/2022 3:18 AM CDT) WBC 5.6 3.5 - 10.5 10? 3 /uL 03/29/2022 6:55 AM CDT [facility] RBC 3.35(L) 4.30 - 5.70 10? 6 /uL 03/29/2022 6:55 AM [facility] Hemoglobin 10.8(L) 12.0 - 17.6 g/dL 03/29/2022 6:55 AM [facility] Hematocrit 33.1(L) 35.2 - 51.7 % 03/29/2022 6:55 AM [facility] MCV 98.8(H) 80.7 - 98.3 fL 03/29/2022 6:55 AM [facility] MCH 32.2 26.7 - 34.0 pg 03/29/2022 6:55 AM [facility] MCHC 32.6 30.8 - 35.9 g/dL 03/29/2022 6:55 AM [facility] RDW-SD 52.3(H) 36.0 - 50.0 fL 03/29/2022 6:55 AM [facility] RDW-CV 14.4 11.2 - 14.8 % 03/29/2022 6:55 AM [facility] Platelet Count 260 150 - 400 10? 3 /uL 03/29/2022 6:55 AM [facility] MPV 12.1 9.4 - 12.9 fL 03/29/2022 6:55 AM [facility] nRBC Absolute 0.00 0 10? 3 /uL 03/29/2022 6:55 AM [facility] nRBC Auto 0.0 0 /100 WBC 03/29/2022 6:55 AM CDT [facility] Blood BLOOD SPECIMEN / Unknown Lab Venipuncture / Unknown 03/29/2022 3:18 AM CDT 03/29/2022 6:13 AM CDT Petra Fuentes MD LAB - HEMATOLOGY ORD ERABLES [address] [address], [place] [phone] * GLUCOSE - POINT OF CARE (03/28/2022 10:05 PM CDT) Glucose WB/POC 111 70 - 115 mg/dL 03/28/2022 10:13 PM CDT [facility] Specimen Type Cap Fingerstick 2021 10:13 PM CDT [facility] Blood BLOOD SPECIMEN / Unknown 03/28/2022 10:05 PM CDT 03/28/2022 10:13 PM CDT Artur Mcgraw MD LAB - POINT OF CARE ORDERABLES Performing Organization Address City/[facility]/ZIP Co de Phone Number [address] [address], [place] [phone] * GLUCOSE - POINT OF CARE (03/28/2022 1:18 PM CDT) Glucose WB/POC 99 70 - 115 mg/dL 03/28/2022 1:23 PM CDT [facility] Specimen Type Cap Fingerstick 2021 1:23 PM CDT [facility] Blood BLOOD SPECIMEN / Unknown 03/28/2022 1:18 PM CDT 03/28/2022 1:23 PM CDT Artur Mcgraw MD LAB - POINT OF CARE ORDERABLES [address] [address], [place] [phone] * (ABNORMAL) BASIC METABOLIC PANEL (CALCIUM TOTAL) (03/28/2022 11:05 AM CDT) [facility] BUN 11 7 - 26 mg/dL 03/28/2022 11:41 AM [facility] Creatinine 0.49(L) 0.71 - 1.16 mg/dL 03/28/2022 11:41 AM [facility] Sodium 138 136 - 145 mmol/L 03/28/2022 11:41 AM [facility] Potassium 4.8(H) 3.5 - 4.5 mmol/L 03/28/2022 11:41 AM [facility] Chloride 103 98 - 107 mmol/L 03/28/2022 11:41 AM [facility] CO2 27 22 - 29 mmol/L 03/28/2022 11:41 AM [facility] Glucose 115 70 - 115 mg/dL 03/28/2022 11:41 AM [facility] Calcium 9.2 8.4 - 10.2 mg/dL 03/28/2022 11:41 AM [facility] Anion Gap 13 8 - 18 03/28/2022 11:41 AM [facility] BUN/Creatinine Ratio 22 7 - 23 03/28/2022 11:41 AM [facility] Osmolality Calculated 286 270 - 300 mOsm/kg 03/28/2022 11:41 AM [facility] eGFR by CKD-EPI >90 >=90 mL/min/1.7 3 m2 03/28/2022 11:41 AM [facility] Blood BLOOD SPECIMEN / Unknown Lab Venipuncture / Unknown 03/28/2022 11:05 AM CDT 03/28/2022 11:15 AM [facility] Petra Fuentes MD LAB - CHEMISTRY MARSHAL MEDEROS [place] Organization Address City/State/ZIP Co de Phone Number [facility] [address] [place] [address], [facility] [phone] * (ABNORMAL) CBC W/O DIFFERENTIAL (03/28/2022 11:05 AM CDT) WBC 5.8 3.5 - 10.5 10? 3 /uL 03/28/2022 11:29 AM [facility] RBC 3.48(L) 4.30 - 5.70 10? 6 /uL 03/28/2022 11:29 AM [facility] Hemoglobin 11.2(L) 12.0 - 17.6 g/dL 03/28/2022 11:29 AM [facility] Hematocrit 34.0(L) 35.2 - 51.7 % 03/28/2022 11:29 AM [facility] MCV 97.7 80.7 - 98.3 fL 03/28/2022 11:29 AM [facility] MCH 32.2 26.7 - 34.0 pg 03/28/2022 11:29 AM [facility] MCHC 32.9 30.8 - 35.9 g/dL 03/28/2022 11:29 AM [facility] RDW-SD 51.1(H) 36.0 - 50.0 fL 03/28/2022 11:29 AM [facility] RDW-CV 14.4 11.2 - 14.8 % 03/28/2022 11:29 AM [facility] Platelet Count 251 150 - 400 10? 3 /uL 03/28/2022 11:29 AM [facility] MPV 11.1 9.4 - 12.9 fL 03/28/2022 11:29 AM [facility] nRBC Absolute 0.00 0 10? 3 /uL 03/28/2022 11:29 AM [facility] nRBC Auto 0.0 0 /100 WBC 03/28/2022 11:29 AM [facility] Blood BLOOD SPECIMEN / Unknown Lab Venipuncture / Unknown 03/28/2022 11:05 AM CDT 03/28/2022 11:15 AM [facility] Petra Fuentes MD LAB - HEMATOLOGY ORD ERABLES [facility] [address] [place] [address], [facility] [phone] * (ABNORMAL) GLUCOSE - POINT OF CARE (03/28/2022 7:35 AM CDT) Glucose WB/POC 118(H) 70 - 115 mg/dL 03/28/2022 7:40 AM CDT [facility] Specimen Type Cap Fingerstick 2021 7:40 AM CDT [facility] Blood BLOOD SPECIMEN / Unknown 03/28/2022 7:35 AM CDT 03/28/2022 7:40 AM CDT Artur Mcgraw MD LAB - POINT OF CARE ORDERABLES [address] [address], [place] [phone] * (ABNORMAL) GLUCOSE - POINT OF CARE (03/27/2022 11:39 AM CDT) Glucose WB/POC 126(H) 70 - 115 mg/dL 03/27/2022 11:44 AM CDT [facility] Specimen Type Cap Fingerstick 2021 11:44 AM CDT [facility] Blood BLOOD SPECIMEN / Unknown 03/27/2022 11:39 AM CDT 03/27/2022 11:44 AM CDT Artur Mcgraw MD LAB - POINT OF CARE ORDERABLES [address] [address], [place] [phone] * GLUCOSE - POINT OF CARE (03/27/2022 8:43 AM CDT) Glucose WB/POC 112 70 - 115 mg/dL 03/27/2022 8:48 AM CDT [facility] Specimen Type Cap Fingerstick 2021 8:48 AM CDT [facility] Blood BLOOD SPECIMEN / Unknown 03/27/2022 8:43 AM CDT 03/27/2022 8:48 AM CDT Artur Mcgraw MD LAB - POINT OF CARE ORDERABLES [address] [address], [facility] [phone] * (ABNORMAL) BASIC METABOLIC PANEL (CALCIUM TOTAL) (03/27/2022 3:29 AM CDT) BUN 8 7 - 26 mg/dL 03/27/2022 4:14 AM [facility] Creatinine 0.47(L) 0.71 - 1.16 mg/dL 03/27/2022 4:14 AM [facility] Sodium 137 136 - 145 mmol/L 03/27/2022 4:14 AM [facility] Potassium 4.0 3.5 - 4.5 mmol/L 03/27/2022 4:14 AM [facility] Chloride 104 98 - 107 mmol/L 03/27/2022 4:14 AM [facility] CO2 24 22 - 29 mmol/L 03/27/2022 4:14 AM [facility] Glucose 109 70 - 115 mg/dL 03/27/2022 4:14 AM [facility] Calcium 9.4 8.4 - 10.2 mg/dL 03/27/2022 4:14 AM [facility] Anion Gap 13 8 - 18 03/27/2022 4:14 AM [facility] BUN/Creatinine Ratio 17 7 - 23 03/27/2022 4:14 AM [facility] Osmolality Calculated 283 270 - 300 mOsm/kg 03/27/2022 4:14 AM [facility] eGFR by CKD-EPI >90 >=90 mL/min/1.7 3 m2 03/27/2022 4:14 AM [facility] Blood BLOOD SPECIMEN / Unknown Lab Venipuncture / Unknown 03/27/2022 3:29 AM CDT 03/27/2022 3:43 AM CDT Petra Fuentes MD LAB - CHEMISTRY MARSHAL MEDEROS [address] [address], [facility] [phone] * (ABNORMAL) CBC W/O DIFFERENTIAL (03/27/2022 3:29 AM CDT) [facility] WBC 9.3 3.5 - 10.5 10? 3 /uL 03/27/2022 3:51 AM CDT [facility] RBC 3.40(L) 4.30 - 5.70 10? 6 /uL 03/27/2022 3:51 AM [facility] Hemoglobin 11.0(L) 12.0 - 17.6 g/dL 03/27/2022 3:51 AM [facility] Hematocrit 33.2(L) 35.2 - 51.7 % 03/27/2022 3:51 AM [facility] MCV 97.6 80.7 - 98.3 fL 03/27/2022 3:51 AM [facility] MCH 32.4 26.7 - 34.0 pg 03/27/2022 3:51 AM [facility] MCHC 33.1 30.8 - 35.9 g/dL 03/27/2022 3:51 AM [facility] RDW-SD 50.8(H) 36.0 - 50.0 fL 03/27/2022 3:51 AM [facility] RDW-CV 14.3 11.2 - 14.8 % 03/27/2022 3:51 AM [facility] Platelet Count 252 150 - 400 10? 3 /uL 03/27/2022 3:51 AM [facility] MPV 11.0 9.4 - 12.9 fL 03/27/2022 3:51 AM [facility] nRBC Absolute 0.00 0 10? 3 /uL 03/27/2022 3:51 AM [facility] nRBC Auto 0.0 0 /100 WBC 03/27/2022 3:51 AM [facility] Blood BLOOD SPECIMEN / Unknown Lab Venipuncture / Unknown 03/27/2022 3:29 AM CDT 03/27/2022 3:44 AM CDT Petra Fuentes MD LAB - HEMATOLOGY ORD ERABLES [address] [address], [place] [phone] * GLUCOSE - POINT OF CARE (03/26/2022 5:47 PM CDT) Glucose WB/POC 93 70 - 115 mg/dL 03/26/2022 5:52 PM CDT [facility] Specimen Type Cap Fingerstick 2021 5:52 PM CDT [facility] Blood BLOOD SPECIMEN / Unknown 03/26/2022 5:47 PM CDT 03/26/2022 5:52 PM CDT Artur Mcgraw MD LAB - POINT OF CARE ORDERABLES Performing Organization Address City/[facility]/ZIP Co de Phone Number [address] [address], [place] [phone] * GLUCOSE - POINT OF CARE (03/26/2022 11:59 AM CDT) Glucose WB/POC 92 70 - 115 mg/dL 03/26/2022 12:03 PM CDT [facility] Specimen Type Cap Fingerstick 2021 12:03 PM CDT [facility] Blood BLOOD SPECIMEN / Unknown 03/26/2022 11:59 AM CDT 03/26/2022 12:03 PM CDT Artur Mcgraw MD LAB - POINT OF CARE ORDERABLES [address] [address], [place] [phone] * GLUCOSE - POINT OF CARE (03/26/2022 8:45 AM CDT) Glucose WB/POC 91 70 - 115 mg/dL 03/26/2022 12:03 PM CDT [facility] Specimen Type Cap Fingerstick 2021 12:03 PM [facility] Blood BLOOD SPECIMEN / Unknown 03/26/2022 8:45 AM CDT 03/26/2022 12:03 PM CDT Artur Mcgraw MD LAB - POINT OF CARE ORDERABLES [facility] [address] [place] [address], [facility] [phone] * (ABNORMAL) BASIC METABOLIC PANEL (CALCIUM TOTAL) (03/26/2022 7:25 AM CDT) BUN 8 7 - 26 mg/dL 03/26/2022 8:23 AM [facility] Creatinine 0.46(L) 0.71 - 1.16 mg/dL 03/26/2022 8:23 AM [facility] Sodium 138 136 - 145 mmol/L 03/26/2022 8:23 AM [facility] Potassium 4.3 3.5 - 4.5 mmol/L 03/26/2022 8:23 AM [facility] Chloride 105 98 - 107 mmol/L 03/26/2022 8:23 AM [facility] CO2 23 22 - 29 mmol/L 03/26/2022 8:23 AM [facility] Glucose 97 70 - 115 mg/dL 03/26/2022 8:23 AM [facility] Calcium 9.3 8.4 - 10.2 mg/dL 03/26/2022 8:23 AM [facility] Anion Gap 14 8 - 18 03/26/2022 8:23 AM [facility] BUN/Creatinine Ratio 17 7 - 23 03/26/2022 8:23 AM [facility] Osmolality Calculated 284 270 - 300 mOsm/kg 03/26/2022 8:23 AM [facility] eGFR by CKD-EPI >90 >=90 mL/min/1.7 3 m2 03/26/2022 8:23 AM [facility] Blood BLOOD SPECIMEN / Unknown Lab Venipuncture / Unknown 03/26/2022 7:25 AM CDT 03/26/2022 7:57 AM CDT Petra Fuentes MD LAB - CHEMISTRY MARSHAL MEDEROS [place] Organization Address City/State/ZIP Co de Phone Number [facility] [address] [place] [address], [facility] [phone] * (ABNORMAL) CBC W/O DIFFERENTIAL (03/26/2022 7:25 AM CDT) WBC 9.0 3.5 - 10.5 10? 3 /uL 03/26/2022 8:02 AM [facility] RBC 3.46(L) 4.30 - 5.70 10? 6 /uL 03/26/2022 8:02 AM [facility] Hemoglobin 11.1(L) 12.0 - 17.6 g/dL 03/26/2022 8:02 AM [facility] Hematocrit 33.2(L) 35.2 - 51.7 % 03/26/2022 8:02 AM [facility] MCV 96.0 80.7 - 98.3 fL 03/26/2022 8:02 AM [facility] MCH 32.1 26.7 - 34.0 pg 03/26/2022 8:02 AM [facility] MCHC 33.4 30.8 - 35.9 g/dL 03/26/2022 8:02 AM [facility] RDW-SD 49.4 36.0 - 50.0 fL 03/26/2022 8:02 AM [facility] RDW-CV 14.2 11.2 - 14.8 % 03/26/2022 8:02 AM [facility] Platelet Count 243 150 - 400 10? 3 /uL 03/26/2022 8:02 AM [facility] MPV 11.3 9.4 - 12.9 fL 03/26/2022 8:02 AM [facility] nRBC Absolute 0.00 0 10? 3 /uL 03/26/2022 8:02 AM [facility] nRBC Auto 0.0 0 /100 WBC 03/26/2022 8:02 AM [facility] Blood BLOOD SPECIMEN / Unknown Lab Venipuncture / Unknown 03/26/2022 7:25 AM CDT 03/26/2022 7:57 AM CDT Petra Fuentes MD LAB - HEMATOLOGY ORD ERABLES Performing Organization Address [facility]/State/ZIP Co de Phone Number [facility] [address] [place] [address], [facility] [phone] * EGD (03/25/2022 4:19 PM CDT) Report Endoscopy POC Endoscopy Department Report _ Patient Name: Mojgan Tabor ?Procedure Date: 03/25/2022 4:19 PM ? Date of : 1960 Classification: Inpatient ? Gender: Male Ethnicity: Not or ? Race: Black or _ Providers: ?Tiffani Castillo MD, Jolynn Ann (Fellow) Referring : ? Procedure: ?Upper [...] and ?oxygen saturations were monitored continuously. The ?[id number] was introduced through the mouth, and ?advanced [...] Procedure Code(s): ? --- Professional --- ? 05683, Esophagogastroduoden oscopy, flexible, transoral; with directed ? placement of percutaneous gastrostomy tube Diagnosis Code(s): ?--- Professional --- ?K31.89, Other diseases of stomach and duodenum ?R13.10, Dysphagia, unspecified CPT copyright 2019 [employer]. All rights reserved. The codes documented in this report are preliminary and upon rip tailer review may be revised to meet current compliance requirements. __ Tiffani Castillo MD 03/25/2022 5:11:23 PM Note Initiated On: 03/25/2022 4:19 PM Number of Addenda: 0 ? [facility] ? [address] [place] [address] [facility] 03/25/2022 4:19 PM CDT Artur Mcgraw MD GI PROCEDURE ORDERA BLES Performing Organization Address City/[facility]/ZIP Co de Phone Number [facility] * (ABNORMAL) GLUCOSE - POINT OF CARE (03/25/2022 11:11 AM CDT) Glucose WB/POC 125(H) 70 - 115 mg/dL 03/25/2022 11:17 AM CDT [facility] Specimen Type Cap Fingerstick 2021 11:17 AM CDT [facility] Blood BLOOD SPECIMEN / Unknown 03/25/2022 11:11 AM CDT 03/25/2022 11:17 AM CDT Artur Mcgraw MD LAB - POINT OF CARE ORDERABLES Performing Organization Address [facility]/ZIP Co de Phone Number [facility] [address] [place] [address], [facility] [phone] * (ABNORMAL) GLUCOSE - POINT OF CARE (03/25/2022 8:12 AM CDT) Glucose WB/POC 125(H) 70 - 115 mg/dL 03/25/2022 8:13 AM [facility] Specimen Type Cap Fingerstick 2021 8:13 AM [facility] Blood BLOOD SPECIMEN / Unknown 03/25/2022 8:12 AM CDT 03/25/2022 8:13 AM CDT Artur Mcgraw MD LAB - POINT OF CARE ORDERABLES [facility] [address] [place] [address], [facility] [phone] * (ABNORMAL) BASIC METABOLIC PANEL (CALCIUM TOTAL) (03/25/2022 3:51 AM CDT) Pathologist [facility] BUN 14 7 - 26 mg/dL 03/25/2022 5:23 AM [facility] Creatinine 0.45(L) 0.71 - 1.16 mg/dL 03/25/2022 5:23 AM [facility] Sodium 141 136 - 145 mmol/L 03/25/2022 5:23 AM [facility] Potassium 4.1 3.5 - 4.5 mmol/L 03/25/2022 5:23 AM [facility] Chloride 108(H) 98 - 107 mmol/L 03/25/2022 5:23 AM [facility] CO2 24 22 - 29 mmol/L 03/25/2022 5:23 AM [facility] Glucose 108 70 - 115 mg/dL 03/25/2022 5:23 AM [facility] Calcium 8.9 8.4 - 10.2 mg/dL 03/25/2022 5:23 AM [facility] Anion Gap 13 8 - 18 03/25/2022 5:23 AM [facility] BUN/Creatinine Ratio 31(H) 7 - 23 03/25/2022 5:23 AM [facility] Osmolality Calculated 293 270 - 300 mOsm/kg 03/25/2022 5:23 AM [facility] eGFR by CKD-EPI >90 >=90 mL/min/1.7 3 m2 03/25/2022 5:23 AM [facility] Blood BLOOD SPECIMEN / Unknown Lab Venipuncture / Unknown 03/25/2022 3:51 AM CDT 03/25/2022 4:50 AM CDT Petra Fuentes MD LAB - CHEMISTRY MARSHAL MEDEROS [facility] [address] [place] [address], [facility] [phone] * (ABNORMAL) CBC W/O DIFFERENTIAL (03/25/2022 3:51 AM CDT) WBC 9.4 3.5 - 10.5 10? 3 /uL 03/25/2022 5:01 AM [facility] RBC 3.32(L) 4.30 - 5.70 10? 6 /uL 03/25/2022 5:01 AM [facility] Hemoglobin 10.6(L) 12.0 - 17.6 g/dL 03/25/2022 5:01 AM [facility] Hematocrit 32.0(L) 35.2 - 51.7 % 03/25/2022 5:01 AM [facility] MCV 96.4 80.7 - 98.3 fL 03/25/2022 5:01 AM [facility] MCH 31.9 26.7 - 34.0 pg 03/25/2022 5:01 AM [facility] MCHC 33.1 30.8 - 35.9 g/dL 03/25/2022 5:01 AM [facility] Platelet Count 262 150 - 400 10? 3 /uL 03/25/2022 5:01 AM [facility] RDW-SD 48.5 36.0 - 50.0 fL 03/25/2022 5:01 AM [facility] RDW-CV 13.9 11.2 - 14.8 % 03/25/2022 5:01 AM [facility] MPV 11.4 9.4 - 12.9 fL 03/25/2022 5:01 AM CDT [facility] nRBC Absolute 0.00 0 10? 3 /uL 03/25/2022 5:01 AM CDT [facility] nRBC Auto 0.0 0 /100 WBC 03/25/2022 5:01 AM CDT [facility] Blood BLOOD SPECIMEN / Unknown Lab Venipuncture / Unknown 03/25/2022 3:51 AM CDT 03/25/2022 4:50 AM CDT Petra Fuentes MD LAB - HEMATOLOGY ORD ERABLES [address] [address], [place] [phone] * GLUCOSE - POINT OF CARE (03/24/2022 4:28 PM CDT) Glucose WB/POC 90 70 - 115 mg/dL 03/24/2022 4:30 PM CDT [facility] Specimen Type Arterial 03/24/2022 4:30 PM CDT [facility] Blood BLOOD SPECIMEN / Unknown 03/24/2022 4:28 PM CDT 03/24/2022 4:30 PM CDT Artur Mcgraw MD LAB - POINT OF CARE ORDERABLES [address] [address], [place] [phone] * (ABNORMAL) GLUCOSE - POINT OF CARE (03/24/2022 12:01 PM CDT) Glucose WB/POC 123(H) 70 - 115 mg/dL 03/24/2022 12:02 PM CDT [facility] Specimen Type Arterial 03/24/2022 12:02 PM CDT [facility] Blood BLOOD SPECIMEN / Unknown 03/24/2022 12:01 PM CDT 03/24/2022 12:02 PM CDT Artur Mcgraw MD LAB - POINT OF CARE ORDERABLES [address] [address], [facility] [phone] * GLUCOSE - POINT OF CARE (03/24/2022 8:25 AM CDT) Glucose WB/POC 90 70 - 115 mg/dL 03/24/2022 8:26 AM T [facility] Specimen Type Arterial 03/24/2022 8:26 AM [facility] Blood BLOOD SPECIMEN / Unknown 03/24/2022 8:25 AM CDT 03/24/2022 8:26 AM CDT Artur Mcgraw MD LAB - POINT OF CARE ORDERABLES Performing Organization Address [facility]/ZIP Co de Phone Number [address] [address], [facility] [phone] * (ABNORMAL) BASIC METABOLIC PANEL (CALCIUM TOTAL) (03/24/2022 2:58 AM CDT) BUN 12 7 - 26 mg/dL 03/24/2022 5:13 AM [facility] Creatinine 0.48(L) 0.71 - 1.16 mg/dL 03/24/2022 5:13 AM [facility] Sodium 143 136 - 145 mmol/L 03/24/2022 5:13 AM [facility] Potassium 3.9 3.5 - 4.5 mmol/L 03/24/2022 5:13 AM [facility] Chloride 107 98 - 107 mmol/L 03/24/2022 5:13 AM [facility] CO2 23 22 - 29 mmol/L 03/24/2022 5:13 AM [facility] Glucose 103 70 - 115 mg/dL 03/24/2022 5:13 AM [facility] Calcium 9.1 8.4 - 10.2 mg/dL 03/24/2022 5:13 AM [facility] Anion Gap 17 8 - 18 03/24/2022 5:13 AM [facility] BUN/Creatinine Ratio 25(H) 7 - 23 03/24/2022 5:13 AM [facility] Osmolality Calculated 296 270 - 300 mOsm/kg 03/24/2022 5:13 AM [facility] eGFR by CKD-EPI >90 >=90 mL/min/1.7 3 m2 03/24/2022 5:13 AM [facility] Blood BLOOD SPECIMEN / Unknown Lab Venipuncture / Unknown 03/24/2022 2:58 AM CDT 03/24/2022 4:42 AM CDT Petra Fuentes MD LAB - CHEMISTRY MARSHAL MEDEROS [place] Organization Address City/State/ZIP Co de Phone Number [facility] [address] [place] [address], [facility] [phone] * (ABNORMAL) CBC W/O DIFFERENTIAL (03/24/2022 2:58 AM CDT) WBC 11.0(H) 3.5 - 10.5 10? 3 /uL 03/24/2022 5:02 AM [facility] RBC 3.44(L) 4.30 - 5.70 10? 6 /uL 03/24/2022 5:02 AM [facility] Hemoglobin 10.9(L) 12.0 - 17.6 g/dL 03/24/2022 5:02 AM [facility] Hematocrit 33.0(L) 35.2 - 51.7 % 03/24/2022 5:02 AM [facility] MCV 95.9 80.7 - 98.3 fL 03/24/2022 5:02 AM [facility] MCH 31.7 26.7 - 34.0 pg 03/24/2022 5:02 AM [facility] MCHC 33.0 30.8 - 35.9 g/dL 03/24/2022 5:02 AM [facility] Platelet Count 195 150 - 400 10? 3 /uL 03/24/2022 5:02 AM [facility] RDW-SD 47.2 36.0 - 50.0 fL 03/24/2022 5:02 AM CDT [facility] RDW-CV 13.9 11.2 - 14.8 % 03/24/2022 5:02 AM CDT [facility] MPV 12.0 9.4 - 12.9 fL 03/24/2022 5:02 AM CDT [facility] nRBC Absolute 0.00 0 10? 3 /uL 03/24/2022 5:02 AM CDT [facility] nRBC Auto 0.0 0 /100 WBC 03/24/2022 5:02 AM CDT [facility] Blood BLOOD SPECIMEN / Unknown Lab Venipuncture / Unknown 03/24/2022 2:58 AM CDT 03/24/2022 4:42 AM CDT Petra Fuentes MD LAB - HEMATOLOGY ORD ERABLES [address] [address], [facility] [phone] * PHOSPHORUS BLOOD (03/24/2022 2:58 AM CDT) Phosphorus 3.1 2.8 - 5.1 mg/dL 03/24/2022 5:13 AM CDT [facility] Blood BLOOD SPECIMEN / Unknown Lab Venipuncture / Unknown 03/24/2022 2:58 AM CDT 03/24/2022 4:42 AM CDT Artur Mcgraw MD LAB - CHEMISTRY ORD ERABLES [address] [address], [facility] [phone] * MAGNESIUM BLOOD (03/24/2022 2:58 AM CDT) Magnesium 1.6 1.6 - 2.6 mg/dL 03/24/2022 5:13 AM CDT [facility] Blood BLOOD SPECIMEN / Unknown Lab Venipuncture / Unknown 03/24/2022 2:58 AM CDT 03/24/2022 4:42 AM CDT Artur Mcgraw MD LAB - CHEMISTRY ORD ERABLES [facility] [address] [place] [address], [place] [phone] * (ABNORMAL) GLUCOSE - POINT OF CARE (03/23/2022 4:20 PM CDT) Pathologist [facility] Glucose WB/POC 125(H) 70 - 115 mg/dL 03/23/2022 4:21 PM CDT [facility] Specimen Type Arterial 03/23/2022 4:21 PM T [facility] Blood BLOOD SPECIMEN / Unknown 03/23/2022 4:20 PM CDT 03/23/2022 4:21 PM CDT Artur Mcgraw MD LAB - POINT OF CARE ORDERABLES Performing Organization Address City/[facility]/ZIP Co de Phone Number [facility] [address] [place] [address], [facility] [phone] * (ABNORMAL) BASIC METABOLIC PANEL (CALCIUM TOTAL) (03/23/2022 3:39 AM CDT) Pathologist [facility] BUN 9 7 - 26 mg/dL 03/23/2022 4:26 AM [facility] Creatinine 0.51(L) 0.71 - 1.16 mg/dL 03/23/2022 4:26 AM [facility] Sodium 140 136 - 145 mmol/L 03/23/2022 4:26 AM [facility] Potassium 3.7 3.5 - 4.5 mmol/L 03/23/2022 4:26 AM [facility] Chloride 106 98 - 107 mmol/L 03/23/2022 4:26 AM [facility] CO2 24 22 - 29 mmol/L 03/23/2022 4:26 AM [facility] Glucose 114 70 - 115 mg/dL 03/23/2022 4:26 AM [facility] Calcium 8.9 8.4 - 10.2 mg/dL 03/23/2022 4:26 AM [facility] Anion Gap 14 8 - 18 03/23/2022 4:26 AM [facility] BUN/Creatinine Ratio 18 7 - 23 03/23/2022 4:26 AM [facility] Osmolality Calculated 290 270 - 300 mOsm/kg 03/23/2022 4:26 AM [facility] eGFR by CKD-EPI >90 >=90 mL/min/1.7 3 m2 03/23/2022 4:26 AM [facility] Blood BLOOD SPECIMEN / Unknown Lab Venipuncture / Unknown 03/23/2022 3:39 AM CDT 03/23/2022 3:57 AM CDT Petra Fuentes MD LAB - CHEMISTRY [facility] [place] Organization Address City/State/ZIP Co de Phone Number [facility] [address] [place] [phone], [facility] [phone] * (ABNORMAL) CBC W/O DIFFERENTIAL (03/23/2022 3:39 AM CDT) WBC 9.3 3.5 - 10.5 10? 3 /uL 03/23/2022 4:10 AM [facility] RBC 3.22(L) 4.30 - 5.70 10? 6 /uL 03/23/2022 4:10 AM [facility] Hemoglobin 10.2(L) 12.0 - 17.6 g/dL 03/23/2022 4:10 AM [facility] Hematocrit 31.2(L) 35.2 - 51.7 % 03/23/2022 4:10 AM [facility] MCV 96.9 80.7 - 98.3 fL 03/23/2022 4:10 AM [facility] MCH 31.7 26.7 - 34.0 pg 03/23/2022 4:10 AM [facility] MCHC 32.7 30.8 - 35.9 g/dL 03/23/2022 4:10 AM [facility] Platelet Count 273 150 - 400 10? 3 /uL 03/23/2022 4:10 AM [facility] RDW-SD 48.0 36.0 - 50.0 fL 03/23/2022 4:10 AM CDT [facility] RDW-CV 13.8 11.2 - 14.8 % 03/23/2022 4:10 AM CDT [facility] MPV 10.9 9.4 - 12.9 fL 03/23/2022 4:10 AM CDT [facility] nRBC Absolute 0.00 0 10? 3 /uL 03/23/2022 4:10 AM CDT [facility] nRBC Auto 0.0 0 /100 WBC 03/23/2022 4:10 AM CDT [facility] Blood BLOOD SPECIMEN / Unknown Lab Venipuncture / Unknown 03/23/2022 3:39 AM CDT 03/23/2022 3:57 AM CDT Petra Fuentes MD LAB - HEMATOLOGY ORD ERABLES [address] [address], [facility] [phone] * GLUCOSE - POINT OF CARE (03/22/2022 5:05 PM CDT) [facility] Signature Glucose WB/POC 108 70 - 115 mg/dL 03/22/2022 5:06 PM CDT [facility] Specimen Type Arterial 03/22/2022 5:06 PM CDT [facility] Blood BLOOD SPECIMEN / Unknown 03/22/2022 5:05 PM CDT 03/22/2022 5:06 PM CDT Petra Fuentes MD LAB - POINT OF CARE ORDERABLES [address] [address], [place] [phone] * FL SWALLOWING FUNCTION STUDY (03/22/2022 2:20 [...] DATE/TIME OF EXAM: ??03/22/2022 2:24 PM, LOCATION ??[facility] INDICATION: A41.9: Sepsis without acute organ dysfunction, due to unspecified organism ([facility]/HCC) ADDITIONAL CLINICAL INFORMATION: Ordering Provider Reason [...] DATE/TIME OF EXAM: 03/22/2022 2:24 PM, LOCATION [facility] INDICATION: A41.9: Sepsis without acute organ dysfunction, due to unspecifiedorganism ([facility]/HCC) ADDITIONAL CLINICAL INFORMATION: Ordering Provider Reason For Exam: dysphagia COMPARISON: None. TECHNIQUE: Modified barium swallow fluoroscopy performed in conjunction with speech pathology staff. The speech pathologist administered varying thickness barium liquids and solids under direct Cine fluoroscopy. FINDINGS: Fluoroscopy provided for the purpose of speech pathology swallowingstudy. Please see speech pathology report for details. FLUOROSCOPY DOSE: 3.37 mGy Reference air kerma (ka,r). FLUOROSCOPY TIME: 1.85 minutes IMPRESSION: Modified barium [...] 7 - 26 mg/dL 03/22/2022 5:32 AM [facility] Creatinine 0.49(L) 0.71 - 1.16 mg/dL 03/22/2022 5:32 AM [facility] Sodium 141 136 - 145 mmol/L 03/22/2022 5:32 AM [facility] Potassium 3.7 3.5 - 4.5 mmol/L 03/22/2022 5:32 AM [facility] Chloride 106 98 - 107 mmol/L 03/22/2022 5:32 AM [facility] CO2 28 22 - 29 mmol/L 03/22/2022 5:32 AM [facility] Glucose 91 70 - 115 mg/dL 03/22/2022 5:32 AM [facility] Calcium 8.9 8.4 - 10.2 mg/dL 03/22/2022 5:32 AM [facility] Anion Gap 11 8 - 18 03/22/2022 5:32 AM [facility] BUN/Creatinine Ratio 10 7 - 23 03/22/2022 5:32 AM [facility] Osmolality Calculated 289 270 - 300 mOsm/kg 03/22/2022 5:32 AM [facility] eGFR by CKD-EPI >90 >=90 mL/min/1.7 3 m2 03/22/2022 5:32 AM [facility] Blood BLOOD SPECIMEN / Unknown Lab Venipuncture / Unknown 03/22/2022 3:51 AM CDT 03/22/2022 4:39 AM CDT Petra Fuentes MD LAB - CHEMISTRY MARSHAL MEDEROS [place] Organization Address City/State/ZIP Co de Phone Number [facility] [address] [place] [phone], [facility] [phone] * (ABNORMAL) CBC W/O DIFFERENTIAL (03/22/2022 3:51 AM CDT) WBC 11.4(H) 3.5 - 10.5 10? 3 /uL 03/22/2022 4:50 AM [facility] RBC 3.46(L) 4.30 - 5.70 10? 6 /uL 03/22/2022 4:50 AM [facility] Hemoglobin 11.1(L) 12.0 - 17.6 g/dL 03/22/2022 4:50 AM [facility] Hematocrit 33.6(L) 35.2 - 51.7 % 03/22/2022 4:50 AM [facility] MCV 97.1 80.7 - 98.3 fL 03/22/2022 4:50 AM [facility] MCH 32.1 26.7 - 34.0 pg 03/22/2022 4:50 AM [facility] MCHC 33.0 30.8 - 35.9 g/dL 03/22/2022 4:50 AM [facility] Platelet Count 296 150 - 400 10? 3 /uL 03/22/2022 4:50 AM [facility] RDW-SD 46.7 36.0 - 50.0 fL 03/22/2022 4:50 AM [facility] RDW-CV 13.5 11.2 - 14.8 % 03/22/2022 4:50 AM [facility] MPV 10.9 9.4 - 12.9 fL 03/22/2022 4:50 AM [facility] nRBC Absolute 0.00 0 10? 3 /uL 03/22/2022 4:50 AM [facility] nRBC Auto 0.0 0 /100 WBC 03/22/2022 4:50 AM [facility] Blood BLOOD SPECIMEN / Unknown Lab Venipuncture / Unknown 03/22/2022 3:51 AM CDT 03/22/2022 4:39 AM CDT Petra Fuentes MD LAB - HEMATOLOGY ORD ERABLES [facility] [address] [place] [address], [facility] [phone] * GLUCOSE - POINT OF CARE (03/21/2022 8:39 AM CDT) Pathologist [facility] Glucose WB/POC 109 70 - 115 mg/dL 03/21/2022 8:43 AM [facility] Specimen Type Cap Fingerstick 2021 8:43 AM [facility] Blood BLOOD SPECIMEN / Unknown 03/21/2022 8:39 AM CDT 03/21/2022 8:43 AM CDT Petra Fuentes MD LAB - POINT OF CARE ORDERABLES [facility] [address] [place] [address], [facility] [phone] * (ABNORMAL) BASIC METABOLIC PANEL (CALCIUM TOTAL) (03/21/2022 2:19 AM CDT) [facility] BUN 6(L) 7 - 26 mg/dL 03/21/2022 3:57 AM [facility] Creatinine 0.51(L) 0.71 - 1.16 mg/dL 03/21/2022 3:57 AM [facility] Sodium 144 136 - 145 mmol/L 03/21/2022 3:57 AM [facility] Potassium 3.8 3.5 - 4.5 mmol/L 03/21/2022 3:57 AM [facility] Chloride 110(H) 98 - 107 mmol/L 03/21/2022 3:57 AM [facility] CO2 28 22 - 29 mmol/L 03/21/2022 3:57 AM [facility] Glucose 93 70 - 115 mg/dL 03/21/2022 3:57 AM [facility] Calcium 8.7 8.4 - 10.2 mg/dL 03/21/2022 3:57 AM [facility] Anion Gap 10 8 - 18 03/21/2022 3:57 AM [facility] BUN/Creatinine Ratio 12 - 03/21/2022 3:57 AM [facility] Osmolality Calculated 295 270 - 300 mOsm/kg 03/21/2022 3:57 AM [facility] eGFR by CKD-EPI >90 >=90 mL/min/1.7 3 m2 03/21/2022 3:57 AM [facility] Blood BLOOD SPECIMEN / Unknown Lab Venipuncture / Unknown 03/21/2022 2:19 AM CDT 03/21/2022 3:25 AM CDT Petra Fuentes MD LAB - CHEMISTRY MARSHAL Diana Organization Address [facility]/State/[facility] Co de Phone Number [facility] [address] [place] [address] [phone] * (ABNORMAL) CBC W/O DIFFERENTIAL (03/21/2022 2:19 AM CDT) WBC 9.5 3.5 - 10.5 10? 3 /uL 03/21/2022 3:40 AM [facility] RBC 3.31(L) 4.30 - 5.70 10? 6 /uL 03/21/2022 3:40 AM [facility] Hemoglobin 10.4(L) 12.0 - 17.6 g/dL 03/21/2022 3:40 AM [facility] Hematocrit 31.7(L) 35.2 - 51.7 % 03/21/2022 3:40 AM [facility] MCV 95.8 80.7 - 98.3 fL 03/21/2022 3:40 AM [facility] MCH 31.4 26.7 - 34.0 pg 03/21/2022 3:40 AM [facility] MCHC 32.8 30.8 - 35.9 g/dL 03/21/2022 3:40 AM [facility] Platelet Count 292 150 - 400 10? 3 /uL 03/21/2022 3:40 AM [facility] RDW-SD 46.2 36.0 - 50.0 fL 03/21/2022 3:40 AM [facility] RDW-CV 13.3 11.2 - 14.8 % 03/21/2022 3:40 AM [facility] MPV 11.0 9.4 - 12.9 fL 03/21/2022 3:40 AM [facility] nRBC Absolute 0.00 0 10? 3 /uL 03/21/2022 3:40 AM [facility] nRBC Auto 0.0 0 /100 WBC 03/21/2022 3:40 AM [facility] Blood BLOOD SPECIMEN / Unknown Lab Venipuncture / Unknown 03/21/2022 2:19 AM CDT 03/21/2022 3:25 AM CDT Petra Fuentes MD LAB - HEMATOLOGY ORD ERABLES [facility] [address] [place] [address], [facility] [phone] * (ABNORMAL) BASIC METABOLIC PANEL (CALCIUM TOTAL) (03/20/2022 3:30 AM CDT) BUN 10 7 - 26 mg/dL 03/20/2022 5:02 AM [facility] Creatinine 0.51(L) 0.71 - 1.16 mg/dL 03/20/2022 5:02 AM [facility] Sodium 141 136 - 145 mmol/L 03/20/2022 5:02 AM [facility] Potassium 3.6 3.5 - 4.5 mmol/L 03/20/2022 5:02 AM [facility] Chloride 109(H) 98 - 107 mmol/L 03/20/2022 5:02 AM [facility] CO2 27 22 - 29 mmol/L 03/20/2022 5:02 AM [facility] Glucose 90 70 - 115 mg/dL 03/20/2022 5:02 AM [facility] Calcium 8.7 8.4 - 10.2 mg/dL 03/20/2022 5:02 AM [facility] Anion Gap 9 8 - 18 03/20/2022 5:02 AM [facility] BUN/Creatinine Ratio 20 7 - 23 03/20/2022 5:02 AM [facility] Osmolality Calculated 291 270 - 300 mOsm/kg 03/20/2022 5:02 AM [facility] eGFR by CKD-EPI >90 >=90 mL/min/1.7 3 m2 03/20/2022 5:02 AM [facility] Blood BLOOD SPECIMEN / Unknown Lab Venipuncture / Unknown 03/20/2022 3:30 AM CDT 03/20/2022 4:31 AM CDT Petra Fuentes MD LAB - CHEMISTRY MARSHAL Diana Organization Address City/State/ZIP Co de Phone Number [facility] [address] [place] [address], [facility] [phone] * (ABNORMAL) CBC W/O DIFFERENTIAL (03/20/2022 3:30 AM CDT) WBC 12.7(H) 3.5 - 10.5 10? 3 /uL 03/20/2022 4:34 AM [facility] RBC 3.15(L) 4.30 - 5.70 10? 6 /uL 03/20/2022 4:34 AM [facility] Hemoglobin 9.9(L) 12.0 - 17.6 g/dL 03/20/2022 4:34 AM [facility] Hematocrit 30.7(L) 35.2 - 51.7 % 03/20/2022 4:34 AM [facility] MCV 97.5 80.7 - 98.3 fL 03/20/2022 4:34 AM [facility] MCH 31.4 26.7 - 34.0 pg 03/20/2022 4:34 AM [facility] MCHC 32.2 30.8 - 35.9 g/dL 03/20/2022 4:34 AM [facility] Platelet Count 314 150 - 400 10? 3 /uL 03/20/2022 4:34 AM [facility] RDW-SD 47.0 36.0 - 50.0 fL 03/20/2022 4:34 AM [facility] RDW-CV 13.3 11.2 - 14.8 % 03/20/2022 4:34 AM [facility] MPV 11.1 9.4 - 12.9 fL 03/20/2022 4:34 AM [facility] nRBC Absolute 0.00 0 10? 3 /uL 03/20/2022 4:34 AM CDT [facility] nRBC Auto 0.0 0 /100 WBC 03/20/2022 4:34 AM CDT [facility] Blood BLOOD SPECIMEN / Unknown Lab Venipuncture / Unknown 03/20/2022 3:30 AM CDT 03/20/2022 4:25 AM CDT Petra Fuentes MD LAB - HEMATOLOGY ORD ERABLES [facility] [address] [place] [address], [place] [phone] * GLUCOSE - POINT OF CARE (03/19/2022 8:14 PM CDT) Glucose WB/POC 96 70 - 115 mg/dL 03/19/2022 8:18 PM CDT [facility] Specimen Type Cap Fingerstick 2021 8:18 PM CDT [facility] Blood BLOOD SPECIMEN / Unknown 03/19/2022 8:14 PM CDT 03/19/2022 8:18 PM CDT Petra Fuentes MD LAB - POINT OF CARE ORDERABLES [facility] [address] [place] [address], [place] [phone] * (ABNORMAL) BASIC METABOLIC PANEL (CALCIUM TOTAL) (03/19/2022 2:03 AM CDT) BUN 9 7 - 26 mg/dL 03/19/2022 2:53 AM CDT [facility] Creatinine 0.56(L) 0.71 - 1.16 mg/dL 03/19/2022 2:53 AM CDT [facility] Sodium 143 136 - 145 mmol/L 03/19/2022 2:53 AM CDT [facility] Potassium 3.8 3.5 - 4.5 mmol/L 03/19/2022 2:53 AM CDT [facility] Chloride 107 98 - 107 mmol/L 03/19/2022 2:53 AM [facility] CO2 27 22 - 29 mmol/L 03/19/2022 2:53 AM [facility] Glucose 95 70 - 115 mg/dL 03/19/2022 2:53 AM [facility] Calcium 8.7 8.4 - 10.2 mg/dL 03/19/2022 2:53 AM [facility] Anion Gap 13 8 - 18 03/19/2022 2:53 AM [facility] BUN/Creatinine Ratio 16 7 - 23 03/19/2022 2:53 AM [facility] Osmolality Calculated 294 270 - 300 mOsm/kg 03/19/2022 2:53 AM [facility] eGFR by CKD-EPI >90 >=90 mL/min/1.7 3 m2 03/19/2022 2:53 AM [facility] Blood BLOOD SPECIMEN / Unknown Lab Venipuncture / Unknown 03/19/2022 2:03 AM CDT 03/19/2022 2:23 AM T Petra Fuentes MD LAB - CHEMISTRY MARSHAL [facility] Organization Address City/State/[facility] Co de Phone Number [facility] [address] [place] [phone], [facility] [phone] * (ABNORMAL) CBC W/O DIFFERENTIAL (03/19/2022 2:03 AM CDT) WBC 9.9 3.5 - 10.5 10? 3 /uL 03/19/2022 2:35 AM [facility] RBC 3.15(L) 4.30 - 5.70 10? 6 /uL 03/19/2022 2:35 AM [facility] Hemoglobin 9.9(L) 12.0 - 17.6 g/dL 03/19/2022 2:35 AM [facility] Hematocrit 30.4(L) 35.2 - 51.7 % 03/19/2022 2:35 AM [facility] MCV 96.5 80.7 - 98.3 fL 03/19/2022 2:35 AM [facility] MCH 31.4 26.7 - 34.0 pg 03/19/2022 2:35 AM T [facility] MCHC 32.6 30.8 - 35.9 g/dL 03/19/2022 2:35 AM [facility] Platelet Count 307 150 - 400 10? 3 /uL 03/19/2022 2:35 AM [facility] RDW-SD 46.5 36.0 - 50.0 fL 03/19/2022 2:35 AM [facility] RDW-CV 13.2 11.2 - 14.8 % 03/19/2022 2:35 AM [facility] MPV 10.6 9.4 - 12.9 fL 03/19/2022 2:35 AM [facility] nRBC Absolute 0.00 0 10? 3 /uL 03/19/2022 2:35 AM [facility] nRBC Auto 0.0 0 /100 WBC 03/19/2022 2:35 AM [facility] Blood BLOOD SPECIMEN / Unknown Lab Venipuncture / Unknown 03/19/2022 2:03 AM CDT 03/19/2022 2:23 AM CDT Petra Fuentes MD LAB - HEMATOLOGY ORD ERABLES Performing Organization Address [facility]/State/ZIP Co de Phone Number [facility] [address] [place] [phone], [facility] [phone] * (ABNORMAL) BASIC METABOLIC PANEL (CALCIUM TOTAL) (03/18/2022 6:06 AM CDT) BUN 11 7 - 26 mg/dL 03/18/2022 12:17 PM [facility] Creatinine 0.56(L) 0.71 - 1.16 mg/dL 03/18/2022 12:17 PM [facility] Sodium 140 136 - 145 mmol/L 03/18/2022 12:17 PM [facility] Potassium 4.1 3.5 - 4.5 mmol/L 03/18/2022 12:17 PM [facility] Chloride 107 98 - 107 mmol/L 03/18/2022 12:17 PM T [facility] CO2 27 22 - 29 mmol/L 03/18/2022 12:17 PM T [facility] Glucose 95 70 - 115 mg/dL 03/18/2022 12:17 PM T [facility] Calcium 8.9 8.4 - 10.2 mg/dL 03/18/2022 12:17 PM [facility] Anion Gap 10 8 - 18 03/18/2022 12:17 PM T [facility] BUN/Creatinine Ratio 20 7 - 03/18/2022 12:17 PM T [facility] Osmolality Calculated 289 270 - 300 mOsm/kg 03/18/2022 12:17 PM [facility] eGFR by CKD-EPI >90 >=90 mL/min/1.7 3 m2 03/18/2022 12:17 PM [facility] Blood BLOOD SPECIMEN / Unknown Lab Venipuncture / Unknown 03/18/2022 6:06 AM CDT 03/18/2022 6:13 AM CDT Petra Fuentes MD LAB - CHEMISTRY MARSHAL MEDEROS [address] [address], [employer] [phone] * (ABNORMAL) VANCOMYCIN LEVEL TROUGH (03/18/2022 6:06 AM CDT) Vancomycin Trough <2.5(L) 10.0 - 20.0 ug/mL 03/18/2022 6:37 AM CDT [facility] Blood BLOOD SPECIMEN / Unknown Lab Venipuncture / Unknown 03/18/2022 6:06 AM CDT 03/18/2022 6:13 AM CDT Narrative [facility] - 03/18/2022 6:37 AM CDT See institution protocol. Blair Mojica MD LAB - CHEMISTRY MARSHAL MEDEROS [address] [address], [place] [phone] * CT HEAD WO CONTRAST (03/17/2022 5:32 PM CDT) Anatomical Region Laterality Modality Head Computed Tomogra phy 03/18/2022 7:16 AM CDT Impressions 03/18/2022 10:57 AM CDT IMPRESSION: 1.No acute intracranial hemorrhage, midline shift, or significant mass effect. Report dictated by Akbar Barillas MD, MD (physician president). IWojciech MD have personally reviewed and interpreted this examination/study. > Interpreting Provider: Wojciech Neil MD on 03/18/2022 10:57 AM Narrative 03/18/2022 10:57 AM CDT PROCEDURE: ??CT HEAD WO CONTRAST, DATE/TIME OF EXAM: ??03/17/2022 5:32 PM, LOCATION [facility] INDICATION: A41.9: Sepsis without acute organ dysfunction, due to unspecified organism ([facility]) ADDITIONAL CLINICAL INFORMATION: Ordering Provider Reason For [...] DATE/TIME OF EXAM: 03/17/2022 5:32 PM, LOCATION [facility] INDICATION: A41.9: Sepsis without acute organ [...] Report dictated by Akbar Barillas MD, MD (physician president). I, Wojciech Neil MD have personally reviewed and interpretedthis examination/study. [...] intact. > Dictated by Guilherme Foy MD (physician president). IJohn MD have personally reviewed and interpreted [...] isintact. > Dictated by Guilherme Foy MD (physician president). IJohn MD have personally reviewed and interpreted this examination/study. > Interpreting Provider: John Graham MD on 03/17/2022 11:54 PM Petra Fuentes MD DIAGNOSTIC IMAGING O RDERABLES * GLUCOSE - POINT OF CARE (03/17/2022 1:45 PM CDT) [facility] Glucose WB/POC 108 70 - 115 mg/dL 03/17/2022 1:46 PM CDT [facility] Specimen Type Cap Fingerstick 2021 1:46 PM CDT [facility] Blood BLOOD SPECIMEN / Unknown 03/17/2022 1:45 PM CDT 03/17/2022 1:46 PM CDT Petra Fuentes MD LAB - POINT OF CARE ORDERABLES [facility] [address] [place] [phone], [facility] [phone] * (ABNORMAL) COMPREHENSIVE METABOLIC PANEL (03/17/2022 11:12 AM CDT) [facility] BUN 10 7 - 26 mg/dL 03/17/2022 11:59 AM [facility] Creatinine 0.53(L) 0.71 - 1.16 mg/dL 03/17/2022 11:59 AM [facility] Sodium 140 136 - 145 mmol/L 03/17/2022 11:59 AM [facility] Potassium 3.8 3.5 - 4.5 mmol/L 03/17/2022 11:59 AM [facility] Chloride 106 98 - 107 mmol/L 03/17/2022 11:59 AM [facility] CO2 29 22 - 29 mmol/L 03/17/2022 11:59 AM [facility] Glucose 116(H) 70 - 115 mg/dL 03/17/2022 11:59 AM [facility] Calcium 9.0 8.4 - 10.2 mg/dL 03/17/2022 11:59 AM [facility] Protein Total 6.2 6.0 - 8.3 g/dL 03/17/2022 11:59 AM [facility] Albumin 1.8(L) 3.4 - 5.0 g/dL 03/17/2022 11:59 AM [facility] Bilirubin Total 0.2 0.2 - 1.2 mg/dL 03/17/2022 11:59 AM [facility] Alkaline Phosphatase 73 40 - 150 U/L 03/17/2022 11:59 AM [facility] ALT 21 5 - 55 U/L 03/17/2022 11:59 AM [facility] AST 34 5 - 34 U/L 03/17/2022 11:59 AM [facility] Anion Gap 9 8 - 18 03/17/2022 11:59 AM [facility] BUN/Creatinine Ratio 19 7 - 23 03/17/2022 11:59 AM [facility] Osmolality Calculated 290 270 - 300 mOsm/kg 03/17/2022 11:59 AM [facility] Albumin/Globulin Ratio 0.4(L) 1.1 - 2.3 03/17/2022 11:59 AM [facility] eGFR by CKD-EPI >90 >=90 mL/min/1.7 3 m2 03/17/2022 11:59 AM [facility] Blood BLOOD SPECIMEN / Unknown Lab Venipuncture / Unknown 03/17/2022 11:12 AM CDT 03/17/2022 11:33 AM CDT Petra Fuentes MD LAB - CHEMISTRY MARSHAL [place] Organization Address City/State/ZIP Co de Phone Number [facility] [address] [place] [address], [facility] [phone] * (ABNORMAL) CBC W/O DIFFERENTIAL (03/17/2022 11:12 AM CDT) WBC 11.2(H) 3.5 - 10.5 10? 3 /uL 03/17/2022 11:37 AM [facility] RBC 3.35(L) 4.30 - 5.70 10? 6 /uL 03/17/2022 11:37 AM [facility] Hemoglobin 10.7(L) 12.0 - 17.6 g/dL 03/17/2022 11:37 AM [facility] Hematocrit 32.7(L) 35.2 - 51.7 % 03/17/2022 11:37 AM [facility] MCV 97.6 80.7 - 98.3 fL 03/17/2022 11:37 AM [facility] MCH 31.9 26.7 - 34.0 pg 03/17/2022 11:37 AM [facility] MCHC 32.7 30.8 - 35.9 g/dL 03/17/2022 11:37 AM [facility] Platelet Count 344 150 - 400 10? 3 /uL 03/17/2022 11:37 AM [facility] RDW-SD 45.9 36.0 - 50.0 fL 03/17/2022 11:37 AM [facility] RDW-CV 12.9 11.2 - 14.8 % 03/17/2022 11:37 AM [facility] MPV 10.7 9.4 - 12.9 fL 03/17/2022 11:37 AM [facility] nRBC Absolute 0.00 0 10? 3 /uL 03/17/2022 11:37 AM CDT [facility] nRBC Auto 0.0 0 /100 WBC 03/17/2022 11:37 AM CDT [facility] Blood BLOOD SPECIMEN / Unknown Lab Venipuncture / Unknown 03/17/2022 11:12 AM CDT 03/17/2022 11:33 AM CDT Petra Fuentes MD LAB - HEMATOLOGY ORD ERABLES Performing Organization Address City/[facility]/ZIP Co de Phone Number [facility] [address] [place] [address], [facility] [phone] * (ABNORMAL) LACOSAMIDE (03/17/2022 5:25 AM CDT) Lacosamide 10.6(H) 1.0 - 10.0 ug/mL 03/23/2022 1:14 PM CDT [employer] ([facility]) Comment: INTERPRETIVE INFORMATION: Lacosamide, Serum or Plasma [...] developed and its performance characteristics determined by [employer]. It has not been cleared or approved by the [place] Food and Drug Administration. This test was performed in a CLIA-certified laboratory and is intended for clinical purposes. Performed By: [facility] [address] [place] [address] Inspector Salvage: Power Milian MD, PhD Blood BLOOD SPECIMEN / Unknown Lab Venipuncture / Unknown 03/17/2022 5:25 AM CDT 03/17/2022 5:43 AM CDT Petra Fuentes MD LAB - CHEMISTRY ORDE RABSHILPA Performing Organization Address City/[facility]/ZIP Co de Phone Number [employer] [facility]) [address] [place], [place] [address] * GLUCOSE - POINT OF CARE (03/16/2022 10:11 AM CDT) Pathologist [facility] Glucose WB/POC 87 70 - 115 mg/dL 03/16/2022 10:16 AM CDT [facility] Specimen Type Arterial 03/16/2022 10:16 AM CDT [facility] Blood BLOOD SPECIMEN / Unknown 03/16/2022 10:11 AM CDT 03/16/2022 10:16 AM CDT Blair Mojica MD LAB - POINT OF CARE ORDERABLES [address] [address], [place] [phone] * MAGNESIUM BLOOD (03/16/2022 6:19 AM CDT) Pathologist [facility] Magnesium 1.6 1.6 - 2.6 mg/dL 03/16/2022 6:52 AM CDT [facility] Blood BLOOD SPECIMEN / Unknown Lab Venipuncture / Unknown 03/16/2022 6:19 AM CDT 03/16/2022 6:25 AM CDT Blair Mojica MD LAB - CHEMISTRY ORDE RABLES [address] [address], [place] [phone] * (ABNORMAL) RENAL FUNCTION PANEL (03/16/2022 6:19 AM CDT) [facility] BUN 12 7 - 26 mg/dL 03/16/2022 6:52 AM CDT [facility] Creatinine 0.69(L) 0.71 - 1.16 mg/dL 03/16/2022 6:52 AM CDT [facility] Sodium 142 136 - 145 mmol/L 03/16/2022 6:52 AM CDT [facility] Potassium 4.2 3.5 - 4.5 mmol/L 03/16/2022 6:52 AM T [facility] Chloride 107 98 - 107 mmol/L 03/16/2022 6:52 AM [facility] CO2 29 22 - 29 mmol/L 03/16/2022 6:52 AM [facility] Glucose 85 70 - 115 mg/dL 03/16/2022 6:52 AM [facility] Albumin 1.6(L) 3.4 - 5.0 g/dL 03/16/2022 6:52 AM [facility] Calcium 8.5 8.4 - 10.2 mg/dL 03/16/2022 6:52 AM [facility] Phosphorus 3.2 2.8 - 5.1 mg/dL 03/16/2022 6:52 AM [facility] Anion Gap 10 03/16/2022 6:52 AM [facility] BUN/Creatinine Ratio 17 7 - 03/16/2022 6:52 AM [facility] Osmolality Calculated 293 270 - 300 mOsm/kg 03/16/2022 6:52 AM [facility] eGFR by CKD-EPI >90 >=90 mL/min/1.7 3 m2 03/16/2022 6:52 AM [facility] Blood BLOOD SPECIMEN / Unknown Lab Venipuncture / Unknown 03/16/2022 6:19 AM CDT 03/16/2022 6:25 AM T Blair Mojica MD LAB - CHEMISTRY [facility] [place] Organization Address [facility] Co de Phone Number [address] [address], [facility] [phone] * (ABNORMAL) CBC W AUTO DIFFERENTIAL (03/16/2022 6:19 AM CDT) WBC 8.9 3.5 - 10.5 10? 3 /uL 03/16/2022 6:31 AM [facility] RBC 3.15(L) 4.30 - 5.70 10? 6 /uL 03/16/2022 6:31 AM [facility] Hemoglobin 10.0(L) 12.0 - 17.6 g/dL 03/16/2022 6:31 AM [facility] Hematocrit 31.0(L) 35.2 - 51.7 % 03/16/2022 6:31 AM [facility] MCV 98.4(H) 80.7 - 98.3 fL 03/16/2022 6:31 AM [facility] MCH 31.7 26.7 - 34.0 pg 03/16/2022 6:31 AM [facility] MCHC 32.3 30.8 - 35.9 g/dL 03/16/2022 6:31 AM [facility] Platelet Count 282 150 - 400 10? 3 /uL 03/16/2022 6:31 AM [facility] RDW-SD 45.4 36.0 - 50.0 fL 03/16/2022 6:31 AM [facility] RDW-CV 12.7 11.2 - 14.8 % 03/16/2022 6:31 AM [facility] MPV 10.8 9.4 - 12.9 fL 03/16/2022 6:31 AM [facility] nRBC Absolute 0.00 0 10? 3 /uL 03/16/2022 6:31 AM [facility] nRBC Auto 0.0 0 /100 WBC 03/16/2022 6:31 AM [facility] Neutrophils % 64.9 35.0 - 70.0 % 03/16/2022 6:31 AM [facility] Lymphocytes % 18.7(L) 20.0 - 43.0 % 03/16/2022 6:31 AM [facility] Monocytes % 11.0 5.0 - 13.0 % 03/16/2022 6:31 AM [facility] Eosinophils % 4.0 0.0 - 6.0 % 03/16/2022 6:31 AM [facility] Basophil % 0.2 0.0 - 2.0 % 03/16/2022 6:31 AM [facility] Neutrophils Absolute 5.76 1.60 - 7.00 10? 3 /uL 03/16/2022 6:31 AM [facility] Lymphocyte Absolute 1.66 1.10 - 3.90 10? 3 /uL 03/16/2022 6:31 AM CDT [facility] Monocytes Absolute 0.98 0.26 - 1.07 10? 3 /uL 03/16/2022 6:31 AM CDT [facility] Eosinophils Absolute 0.36 0.00 - 0.47 10? 3 /uL 03/16/2022 6:31 AM CDT [facility] Basophils Absolute 0.02 0.00 - 0.08 10? 3 /uL 03/16/2022 6:31 AM CDT [facility] Immature Granulocytes % 1.2(H) 0.0 - 1.0 % 03/16/2022 6:31 AM CDT [facility] Immature Granulocytes Absolute 0.11 03/16/2022 6:31 AM CDT [facility] Blood BLOOD SPECIMEN / Unknown Lab Venipuncture / Unknown 03/16/2022 6:19 AM CDT 03/16/2022 6:25 AM CDT Blair Mojica MD LAB - HEMATOLOGY ORD ERABLES Performing Organization Address [facility] Co de Phone Number [facility] [address] [place] [address], [facility] [phone] * PATHOLOGY TISSUE (03/15/2022 10:16 AM CDT) Case Report Surgical Pathology Report ? Case: [id number] ? Authorizing Provider: ??Anna Membreno MD ? Collected: ? 03/15/2022 10:16 AM ? Ordering Location: ? [facility] ?Received: ?03/15/2022 11:09 AM ? Pathologist: ? Naa Meza MD ? Specimen: ?Amputation Leg AK, Leg, Left ? 03/17/2022 1:38 PM [facility] Final Diagnosis Leg, left, above knee amputation (A): - Skin with ulceration and necrosis - Underlying bone with marrow fibrosis, negative for osteomyelitis - Vascular calcifications - Soft tissue margins appear viable 03/17/2022 1:38 PM [facility] Microscopic Description and Comment Microscopic examination substantiates the final diagnosis. 03/17/2022 1:38 PM [facility] Clinical History The patient is [...] femoral artery significant stenosis. 03/17/2022 1:38 PM [facility] Gross Description The requisition and specimen label(s) are identified with the patient's name, Mojgan Tabor. Received in formalin, specimen A , is a left actru-moa-[id number] amputation, 26.5 cm heel to toe, 49 [...] with stenosis. There are no thrombi present. [employer] Hand sections are submitted as follows: A1-medial fibrous lesion, A2-tip of the toe lesion with underlying bone following decalcification, E0-osvma-nllvikw from the fifth toe, decalcified, A4-proximal skin and soft tissue margin, en face, A5-popliteal artery, A6-posterior tibial artery, A7-anterior tibial artery. MS 03/17/2022 1:38 PM CDT [facility] Disclaimer The performance characteristics of all immunohistochemical and indirect immunofluorescence stains (if any) cited in this report were determined by the [facility]opathology [facility] of [facility]. Some of these tests were developed [...] attending (teaching) pathologist. 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 Blair Mojica MD LAB - CHEMISTRY MARSHAL MEDEROS [facility] [address] [place] [address], [facility] [phone] * MRI FOOT LEFT WWO CONTRAST (03/15/2022 [...] DATE/TIME OF EXAM: ??03/15/2022 12:57 AM, LOCATION [facility] INDICATION: R78.81: Bacteremia I73.9: PAD (peripheral artery disease) ([facility]) ADDITIONAL CLINICAL INFORMATION: Ordering Provider Reason For [...] DATE/TIME OF EXAM: 03/15/2022 12:57 AM, LOCATION [facility] INDICATION: R78.81: Bacteremia I73.9: PAD (peripheral artery disease) ([facility]/HCC) ADDITIONAL CLINICAL INFORMATION: Ordering Provider Reason [...] * MAGNESIUM BLOOD (03/14/2022 10:03 PM CDT) Magnesium 1.8 1.6 - 2.6 mg/dL 03/14/2022 10:38 PM CDT [facility] Blood BLOOD SPECIMEN / Unknown Venipuncture / Unknown 03/14/2022 10:03 PM CDT 03/14/2022 10:07 PM CDT Blair Mojica MD LAB - CHEMISTRY MARSHAL MEDEROS [facility] [address] [place] [address], [facility] [phone] * (ABNORMAL) RENAL FUNCTION PANEL (03/14/2022 10:03 PM CDT) BUN 9 7 - 26 mg/dL 03/14/2022 10:38 PM [facility] Creatinine 0.52(L) 0.71 - 1.16 mg/dL 03/14/2022 10:38 PM [facility] Sodium 140 136 - 145 mmol/L 03/14/2022 10:38 PM [facility] Potassium 3.8 3.5 - 4.5 mmol/L 03/14/2022 10:38 PM [facility] Chloride 104 98 - 107 mmol/L 03/14/2022 10:38 PM [facility] CO2 28 22 - 29 mmol/L 03/14/2022 10:38 PM [facility] Glucose 108 70 - 115 mg/dL 03/14/2022 10:38 PM [facility] Albumin 1.8(L) 3.4 - 5.0 g/dL 03/14/2022 10:38 PM [facility] Calcium 9.1 8.4 - 10.2 mg/dL 03/14/2022 10:38 PM [facility] Phosphorus 2.3(L) 2.8 - 5.1 mg/dL 03/14/2022 10:38 PM [facility] Anion Gap 12 8 - 18 03/14/2022 10:38 PM [facility] BUN/Creatinine Ratio 17 7 - 23 03/14/2022 10:38 PM [facility] Osmolality Calculated 289 270 - 300 mOsm/kg 03/14/2022 10:38 PM [facility] eGFR by CKD-EPI >90 >=90 mL/min/1.7 3 m2 03/14/2022 10:38 PM [facility] Blood BLOOD SPECIMEN / Unknown Venipuncture / Unknown 03/14/2022 10:03 PM CDT 03/14/2022 10:07 PM [facility] Blair Mojica MD LAB - CHEMISTRY MARSHAL Diana Organization Address City/State/ZIP Co de Phone Number [facility] [address] [place] [address] [phone] * (ABNORMAL) CBC W AUTO DIFFERENTIAL (03/14/2022 10:03 PM CDT) [facility] Signature WBC 10.1 3.5 - 10.5 10? 3 /uL 03/14/2022 10:28 PM [facility] RBC 3.54(L) 4.30 - 5.70 10? 6 /uL 03/14/2022 10:28 PM [facility] Hemoglobin 11.4(L) 12.0 - 17.6 g/dL 03/14/2022 10:28 PM [facility] Hematocrit 33.4(L) 35.2 - 51.7 % 03/14/2022 10:28 PM [facility] MCV 94.4 80.7 - 98.3 fL 03/14/2022 10:28 PM [facility] MCH 32.2 26.7 - 34.0 pg 03/14/2022 10:28 PM [facility] MCHC 34.1 30.8 - 35.9 g/dL 03/14/2022 10:28 PM [facility] Platelet Count 295 150 - 400 10? 3 /uL 03/14/2022 10:28 PM [facility] Comment:Confirmed by repeat analysis. RDW-SD 43.1 36.0 - 50.0 fL 03/14/2022 10:28 PM [facility] RDW-CV 12.4 11.2 - 14.8 % 03/14/2022 10:28 PM [facility] MPV 11.3 9.4 - 12.9 fL 03/14/2022 10:28 PM [facility] nRBC Absolute 0.00 0 10? 3 /uL 03/14/2022 10:28 PM [facility] nRBC Auto 0.0 0 /100 WBC 03/14/2022 10:28 PM [facility] Neutrophils % 58.5 35.0 - 70.0 % 03/14/2022 10:28 PM [facility] Lymphocytes % 21.3 20.0 - 43.0 % 03/14/2022 10:28 PM CDT [facility] Monocytes % 16.3(H) 5.0 - 13.0 % 03/14/2022 10:28 PM CDT [facility] Eosinophils % 2.8 0.0 - 6.0 % 03/14/2022 10:28 PM CDT [facility] Basophil % 0.2 0.0 - 2.0 % 03/14/2022 10:28 PM CDT [facility] Neutrophils Absolute 5.92 1.60 - 7.00 10? 3 /uL 03/14/2022 10:28 PM CDT [facility] Lymphocyte Absolute 2.15 1.10 - 3.90 10? 3 /uL 03/14/2022 10:28 PM CDT [facility] Monocytes Absolute 1.65(H) 0.26 - 1.07 10? 3 /uL 03/14/2022 10:28 PM CDT [facility] Eosinophils Absolute 0.28 0.00 - 0.47 10? 3 /uL 03/14/2022 10:28 PM CDT [facility] Basophils Absolute 0.02 0.00 - 0.08 10? 3 /uL 03/14/2022 10:28 PM CDT [facility] Immature Granulocytes % 0.9 0.0 - 1.0 % 03/14/2022 10:28 PM CDT [facility] Immature Granulocytes Absolute 0.09 03/14/2022 10:28 PM CDT [facility] Blood BLOOD SPECIMEN / Unknown Venipuncture / Unknown 03/14/2022 10:03 PM CDT 03/14/2022 10:07 PM CDT Blair Mojica MD LAB - HEMATOLOGY ORD ERABLES [facility] [address] [place] [address], [facility] [phone] * TYPE + SCREEN PANEL (03/14/2022 10:01 PM CDT) Antibody Screen NEG 10:45 PM CDT [facility] ABO Rh O POS 03/14/2022 10:45 PM CDT [facility] Blood Bank BLOOD SPECIMEN / Unknown Venipuncture / Unknown 03/14/2022 10:01 PM CDT 03/14/2022 10:07 PM CDT Blair Mojica MD LAB - BLOOD BANK LUCI GUTIERREZ Performing Organization Address [facility]/ZIP Co de Phone Number [facility] [address] [place] [address], [place] [phone] * (ABNORMAL) PHOSPHORUS BLOOD (03/14/2022 4:58 AM CDT) Phosphorus 2.3(L) 2.8 - 5.1 mg/dL 03/14/2022 7:09 AM CDT [facility] Blood BLOOD SPECIMEN / Unknown Lab Venipuncture / Unknown 03/14/2022 4:58 AM CDT 03/14/2022 6:46 AM CDT Blair Mojica MD LAB - CHEMISTRY MARSHAL EMDEROS Performing Organization Address [facility]/ZIP Co de Phone Number [facility] [address] [place] [phone], [place] [phone] * MAGNESIUM BLOOD (03/14/2022 4:58 AM CDT) Magnesium 1.7 1.6 - 2.6 mg/dL 03/14/2022 7:09 AM CDT [facility] Blood BLOOD SPECIMEN / Unknown Lab Venipuncture / Unknown 03/14/2022 4:58 AM CDT 03/14/2022 6:46 AM CDT Blair Mojica MD LAB - CHEMISTRY MARSHAL MEDEROS Performing Organization Address [facility]/ZIP Co de Phone Number [address] [address], [place] [phone] * (ABNORMAL) COMPREHENSIVE METABOLIC PANEL (03/14/2022 4:58 AM CDT) BUN 11 7 - 26 mg/dL 03/14/2022 7:09 AM CDT [facility] Creatinine 0.49(L) 0.71 - 1.16 mg/dL 03/14/2022 7:09 AM [facility] Sodium 137 136 - 145 mmol/L 03/14/2022 7:09 AM [facility] Potassium 3.8 3.5 - 4.5 mmol/L 03/14/2022 7:09 AM [facility] Chloride 107 98 - 107 mmol/L 03/14/2022 7:09 AM [facility] CO2 26 22 - 29 mmol/L 03/14/2022 7:09 AM [facility] Glucose 79 70 - 115 mg/dL 03/14/2022 7:09 AM [facility] Calcium 9.0 8.4 - 10.2 mg/dL 03/14/2022 7:09 AM [facility] Protein Total 5.8(L) 6.0 - 8.3 g/dL 03/14/2022 7:09 AM [facility] Albumin 1.7(L) 3.4 - 5.0 g/dL 03/14/2022 7:09 AM [facility] Bilirubin Total 0.3 0.2 - 1.2 mg/dL 03/14/2022 7:09 AM [facility] Alkaline Phosphatase 73 40 - 150 U/L 03/14/2022 7:09 AM [facility] ALT 23 5 - 55 U/L 03/14/2022 7:09 AM [facility] AST 35(H) 5 - 34 U/L 03/14/2022 7:09 AM [facility] Anion Gap 8 8 - 18 03/14/2022 7:09 AM [facility] BUN/Creatinine Ratio 22 7 - 23 03/14/2022 7:09 AM [facility] Osmolality Calculated 282 270 - 300 mOsm/kg 03/14/2022 7:09 AM [facility] Albumin/Globulin Ratio 0.4(L) 1.1 - 2.3 03/14/2022 7:09 AM [facility] eGFR by CKD-EPI >90 >=90 mL/min/1.7 3 m2 03/14/2022 7:09 AM [facility] Blood BLOOD SPECIMEN / Unknown Lab Venipuncture / Unknown 03/14/2022 4:58 AM CDT 03/14/2022 6:46 AM CDT Blair Mojica MD LAB - CHEMISTRY MARSHAL MEDEROS [facility] [address] [place] [address], [facility] [phone] * (ABNORMAL) CBC W AUTO DIFFERENTIAL (03/14/2022 4:58 AM CDT) WBC 9.2 3.5 - 10.5 10? 3 /uL 03/14/2022 6:51 AM CDT [facility] RBC 3.23(L) 4.30 - 5.70 10? 6 /uL 03/14/2022 6:51 AM [facility] Hemoglobin 10.4(L) 12.0 - 17.6 g/dL 03/14/2022 6:51 AM [facility] Hematocrit 30.5(L) 35.2 - 51.7 % 03/14/2022 6:51 AM [facility] MCV 94.4 80.7 - 98.3 fL 03/14/2022 6:51 AM [facility] MCH 32.2 26.7 - 34.0 pg 03/14/2022 6:51 AM [facility] MCHC 34.1 30.8 - 35.9 g/dL 03/14/2022 6:51 AM [facility] Platelet Count 157 150 - 400 10? 3 /uL 03/14/2022 6:51 AM [facility] RDW-SD 43.0 36.0 - 50.0 fL 03/14/2022 6:51 AM [facility] RDW-CV 12.4 11.2 - 14.8 % 03/14/2022 6:51 AM [facility] MPV 12.9 9.4 - 12.9 fL 03/14/2022 6:51 AM [facility] nRBC Absolute 0.00 0 10? 3 /uL 03/14/2022 6:51 AM [facility] nRBC Auto 0.0 0 /100 WBC 03/14/2022 6:51 AM [facility] Neutrophils % 60.6 35.0 - 70.0 % 03/14/2022 6:51 AM [facility] Lymphocytes % 20.1 20.0 - 43.0 % 03/14/2022 6:51 AM [facility] Monocytes % 15.7(H) 5.0 - 13.0 % 03/14/2022 6:51 AM [facility] Eosinophils % 2.3 0.0 - 6.0 % 03/14/2022 6:51 AM [facility] Basophil % 0.3 0.0 - 2.0 % 03/14/2022 6:51 AM [facility] Neutrophils Absolute 5.60 1.60 - 7.00 10? 3 /uL 03/14/2022 6:51 AM [facility] Lymphocyte Absolute 1.86 1.10 - 3.90 10? 3 /uL 03/14/2022 6:51 AM [facility] Monocytes Absolute 1.45(H) 0.26 - 1.07 10? 3 /uL 03/14/2022 6:51 AM [facility] Eosinophils Absolute 0.21 0.00 - 0.47 10? 3 /uL 03/14/2022 6:51 AM [facility] Basophils Absolute 0.03 0.00 - 0.08 10? 3 /uL 03/14/2022 6:51 AM [facility] Immature Granulocytes % 1.0 0.0 - 1.0 % 03/14/2022 6:51 AM [facility] Immature Granulocytes Absolute 0.09 03/14/2022 6:51 AM [facility] Blood BLOOD SPECIMEN / Unknown Lab Venipuncture / Unknown 03/14/2022 4:58 AM CDT 03/14/2022 6:32 AM T Blair Mojica MD LAB - HEMATOLOGY ORD ERABLES [facility] [address] [place] [address], [facility] [phone] * (ABNORMAL) GLUCOSE - POINT OF CARE (03/13/2022 11:00 PM CDT) Glucose WB/POC 134(H) 70 - 115 mg/dL 03/13/2022 11:01 PM CDT [facility] Specimen Type Cap Fingerstick 2021 11:01 PM CDT [facility] Blood BLOOD SPECIMEN / Unknown 03/13/2022 11:00 PM CDT 03/13/2022 11:01 PM CDT Blair Mojica MD LAB - POINT OF CARE ORDERABLES [facility] [address] [place] [address], [facility] [phone] * VANCOMYCIN LEVEL TROUGH (03/13/2022 10:50 PM CDT) Vancomycin Trough 16.9 10.0 - 20.0 ug/mL 03/13/2022 11:21 PM CDT [facility] Blood BLOOD SPECIMEN / Unknown Venipuncture / Unknown 03/13/2022 10:50 PM CDT 03/13/2022 10:57 PM CDT Narrative [facility] - 03/13/2022 11:21 PM CDT See institution protocol. Blair Mojica MD LAB - CHEMISTRY ORDE RABLES [address] [address], [facility] [phone] * (ABNORMAL) GLUCOSE - POINT OF CARE (03/13/2022 8:46 AM CDT) Glucose WB/POC 119(H) 70 - 115 mg/dL 03/13/2022 8:51 AM CDT [facility] Specimen Type Cap Fingerstick 2021 8:51 AM CDT [facility] Blood BLOOD SPECIMEN / Unknown 03/13/2022 8:46 AM CDT 03/13/2022 8:51 AM CDT Blair Mojica MD LAB - POINT OF CARE ORDERABLES [facility] [address] [place] [address], [place] [phone] * MAGNESIUM BLOOD (03/13/2022 4:19 AM CDT) Magnesium 2.1 1.6 - 2.6 mg/dL 03/13/2022 5:52 AM [facility] Blood BLOOD SPECIMEN / Unknown Lab Venipuncture / Unknown 03/13/2022 4:19 AM CDT 03/13/2022 5:25 AM CDT Blair Mojica MD LAB - CHEMISTRY ORDE RABLES Performing Organization Address City/[facility]/ZIP Co de Phone Number [facility] [address] [place] [address], [facility] [phone] * (ABNORMAL) RENAL FUNCTION PANEL (03/13/2022 4:19 AM CDT) BUN 14 7 - 26 mg/dL 03/13/2022 5:52 AM [facility] Creatinine 0.61(L) 0.71 - 1.16 mg/dL 03/13/2022 5:52 AM [facility] Sodium 141 136 - 145 mmol/L 03/13/2022 5:52 AM [facility] Potassium 4.0 3.5 - 4.5 mmol/L 03/13/2022 5:52 AM [facility] Chloride 108(H) 98 - 107 mmol/L 03/13/2022 5:52 AM [facility] CO2 25 22 - 29 mmol/L 03/13/2022 5:52 AM [facility] Glucose 76 70 - 115 mg/dL 03/13/2022 5:52 AM [facility] Albumin 2.0(L) 3.4 - 5.0 g/dL 03/13/2022 5:52 AM [facility] Calcium 9.3 8.4 - 10.2 mg/dL 03/13/2022 5:52 AM [facility] Phosphorus 2.8 2.8 - 5.1 mg/dL 03/13/2022 5:52 AM [facility] Anion Gap 12 8 - 18 03/13/2022 5:52 AM [facility] BUN/Creatinine Ratio 23 7 - 23 03/13/2022 5:52 AM [facility] Osmolality Calculated 291 270 - 300 mOsm/kg 03/13/2022 5:52 AM [facility] eGFR by CKD-EPI >90 >=90 mL/min/1.7 3 m2 03/13/2022 5:52 AM [facility] Blood BLOOD SPECIMEN / Unknown Lab Venipuncture / Unknown 03/13/2022 4:19 AM CDT 03/13/2022 5:25 AM CDT Blair Mojica MD LAB - CHEMISTRY MARSHAL MEDEROS [place] Organization Address City/State/ZIP Co de Phone Number [address] [address], [facility] [phone] * (ABNORMAL) CBC W AUTO DIFFERENTIAL (03/13/2022 4:19 AM CDT) WBC 10.7(H) 3.5 - 10.5 10? 3 /uL 03/13/2022 5:43 AM [facility] RBC 3.84(L) 4.30 - 5.70 10? 6 /uL 03/13/2022 5:43 AM [facility] Hemoglobin 12.2 12.0 - 17.6 g/dL 03/13/2022 5:43 AM [facility] Hematocrit 37.4 35.2 - 51.7 % 03/13/2022 5:43 AM [facility] MCV 97.4 80.7 - 98.3 fL 03/13/2022 5:43 AM [facility] MCH 31.8 26.7 - 34.0 pg 03/13/2022 5:43 AM [facility] MCHC 32.6 30.8 - 35.9 g/dL 03/13/2022 5:43 AM [facility] Platelet Count 180 150 - 400 10? 3 /uL 03/13/2022 5:43 AM [facility] RDW-SD 44.3 36.0 - 50.0 fL 03/13/2022 5:43 AM [facility] RDW-CV 12.4 11.2 - 14.8 % 03/13/2022 5:43 AM [facility] MPV 12.2 9.4 - 12.9 fL 03/13/2022 5:43 AM [facility] nRBC Absolute 0.00 0 10? 3 /uL 03/13/2022 5:43 AM [facility] nRBC Auto 0.0 0 /100 WBC 03/13/2022 5:43 AM [facility] Neutrophils % 62.1 35.0 - 70.0 % 03/13/2022 5:43 AM [facility] Lymphocytes % 20.9 20.0 - 43.0 % 03/13/2022 5:43 AM [facility] Monocytes % 13.4(H) 5.0 - 13.0 % 03/13/2022 5:43 AM [facility] Eosinophils % 2.5 0.0 - 6.0 % 03/13/2022 5:43 AM [facility] Basophil % 0.3 0.0 - 2.0 % 03/13/2022 5:43 AM [facility] Neutrophils Absolute 6.64 1.60 - 7.00 10? 3 /uL 03/13/2022 5:43 AM [facility] Lymphocyte Absolute 2.23 1.10 - 3.90 10? 3 /uL 03/13/2022 5:43 AM [facility] Monocytes Absolute 1.43(H) 0.26 - 1.07 10? 3 /uL 03/13/2022 5:43 AM [facility] Eosinophils Absolute 0.27 0.00 - 0.47 10? 3 /uL 03/13/2022 5:43 AM [facility] Basophils Absolute 0.03 0.00 - 0.08 10? 3 /uL 03/13/2022 5:43 AM [facility] Immature Granulocytes % 0.8 0.0 - 1.0 % 03/13/2022 5:43 AM CDT [facility] Immature Granulocytes Absolute 0.09 03/13/2022 5:43 AM CDT [facility] Blood BLOOD SPECIMEN / Unknown Lab Venipuncture / Unknown 03/13/2022 4:19 AM CDT 03/13/2022 5:25 AM CDT Blair Mojica MD LAB - HEMATOLOGY ORD ERABLES Performing Organization Address City/[facility]/ZIP Co de Phone Number [facility] [address] [place] [address], [facility] [phone] * CULTURE BLOOD (03/12/2022 2:00 AM CDT) Culture No growth day 5 JELLY 03/17/2022 8:32 AM CDT [facility] Blood PERIPHERAL BLOOD / Unknown Lab Venipuncture / Unknown 03/12/2022 2:00 AM CDT 03/12/2022 2:30 AM CDT Blair Mojica MD LAB - MICROBIOLOGY O RDCAMILLEBLES Performing Organization Address City/[facility]/ZIP Co de Phone Number [facility] [address] [place] [address], [facility] [phone] * CULTURE BLOOD (03/12/2022 1:58 AM CDT) Culture No growth day 5 JELLY 03/17/2022 8:32 AM CDT [facility] Blood PERIPHERAL BLOOD / Unknown Lab Venipuncture / Unknown 03/12/2022 1:58 AM CDT 03/12/2022 2:30 AM CDT Blair Mojica MD LAB - MICROBIOLOGY O RDERABLES Performing Organization Address City/[facility]/ZIP Co de Phone Number [facility] [address] [place] [address], [facility] [phone] * MAGNESIUM BLOOD (03/12/2022 1:58 AM CDT) Magnesium 1.8 1.6 - 2.6 mg/dL 03/12/2022 3:12 AM CDT [facility] Blood BLOOD SPECIMEN / Unknown Lab Venipuncture / Unknown 03/12/2022 1:58 AM CDT 03/12/2022 2:32 AM CDT Blair Mojica MD LAB - CHEMISTRY MARSHAL Diana Organization Address City/State/ZIP Co de Phone Number [facility] [address] [place] [address], [facility] [phone] * (ABNORMAL) CBC W AUTO DIFFERENTIAL (03/12/2022 1:58 AM CDT) WBC 12.4(H) 3.5 - 10.5 10? 3 /uL 03/12/2022 2:50 AM [facility] RBC 3.55(L) 4.30 - 5.70 10? 6 /uL 03/12/2022 2:50 AM [facility] Hemoglobin 11.3(L) 12.0 - 17.6 g/dL 03/12/2022 2:50 AM [facility] Hematocrit 33.4(L) 35.2 - 51.7 % 03/12/2022 2:50 AM [facility] MCV 94.1 80.7 - 98.3 fL 03/12/2022 2:50 AM [facility] MCH 31.8 26.7 - 34.0 pg 03/12/2022 2:50 AM [facility] MCHC 33.8 30.8 - 35.9 g/dL 03/12/2022 2:50 AM [facility] Platelet Count 225 150 - 400 10? 3 /uL 03/12/2022 2:50 AM [facility] RDW-SD 41.9 36.0 - 50.0 fL 03/12/2022 2:50 AM [facility] RDW-CV 11.9 11.2 - 14.8 % 03/12/2022 2:50 AM [facility] MPV 11.7 9.4 - 12.9 fL 03/12/2022 2:50 AM [facility] nRBC Absolute 0.00 0 10? 3 /uL 03/12/2022 2:50 AM [facility] nRBC Auto 0.0 0 /100 WBC 03/12/2022 2:50 AM [facility] Neutrophils % 72.5(H) 35.0 - 70.0 % 03/12/2022 2:50 AM [facility] Lymphocytes % 14.2(L) 20.0 - 43.0 % 03/12/2022 2:50 AM [facility] Monocytes % 11.0 5.0 - 13.0 % 03/12/2022 2:50 AM [facility] Eosinophils % 1.6 0.0 - 6.0 % 03/12/2022 2:50 AM [facility] Basophil % 0.2 0.0 - 2.0 % 03/12/2022 2:50 AM [facility] Neutrophils Absolute 8.98(H) 1.60 - 7.00 10? 3 /uL 03/12/2022 2:50 AM [facility] Lymphocyte Absolute 1.76 1.10 - 3.90 10? 3 /uL 03/12/2022 2:50 AM [facility] Monocytes Absolute 1.36(H) 0.26 - 1.07 10? 3 /uL 03/12/2022 2:50 AM [facility] Eosinophils Absolute 0.20 0.00 - 0.47 10? 3 /uL 03/12/2022 2:50 AM [facility] Basophils Absolute 0.03 0.00 - 0.08 10? 3 /uL 03/12/2022 2:50 AM [facility] Immature Granulocytes % 0.5 0.0 - 1.0 % 03/12/2022 2:50 AM [facility] Immature Granulocytes Absolute 0.06 03/12/2022 2:50 AM [facility] Blood BLOOD SPECIMEN / Unknown Lab Venipuncture / Unknown 03/12/2022 1:58 AM CDT 03/12/2022 2:32 AM CDT Blair Mojica MD LAB - HEMATOLOGY ORD ERABLES Performing Organization Address City/State/[facility] Co de Phone Number [facility] [address] [place] [phone] [phone] * (ABNORMAL) RENAL FUNCTION PANEL (03/12/2022 1:58 AM CDT) BUN 10 7 - 26 mg/dL 03/12/2022 3:12 AM [facility] Creatinine 0.55(L) 0.71 - 1.16 mg/dL 03/12/2022 3:12 AM [facility] Sodium 139 136 - 145 mmol/L 03/12/2022 3:12 AM [facility] Potassium 3.3(L) 3.5 - 4.5 mmol/L 03/12/2022 3:12 AM [facility] Chloride 106 98 - 107 mmol/L 03/12/2022 3:12 AM [facility] CO2 26 22 - 29 mmol/L 03/12/2022 3:12 AM [facility] Glucose 104 70 - 115 mg/dL 03/12/2022 3:12 AM [facility] Albumin 1.9(L) 3.4 - 5.0 g/dL 03/12/2022 3:12 AM [facility] Calcium 8.8 8.4 - 10.2 mg/dL 03/12/2022 3:12 AM [facility] Phosphorus 2.9 2.8 - 5.1 mg/dL 03/12/2022 3:12 AM [facility] Anion Gap 10 8 - 18 03/12/2022 3:12 AM [facility] BUN/Creatinine Ratio 18 7 - 23 03/12/2022 3:12 AM [facility] Osmolality Calculated 287 270 - 300 mOsm/kg 03/12/2022 3:12 AM [facility] eGFR by CKD-EPI >90 >=90 mL/min/1.7 3 m2 03/12/2022 3:12 AM [facility] Blood BLOOD SPECIMEN / Unknown Lab Venipuncture / Unknown 03/12/2022 1:58 AM CDT 03/12/2022 2:32 AM T Blair Mojica MD LAB - CHEMISTRY MARSHAL MEDEROS Performing Organization Address City/[facility]/ZIP Co de Phone Number [facility] [address] [place] [phone], [place] [phone] * VALPROIC ACID LEVEL (03/12/2022 1:58 AM CDT) Valproic Acid Total 95 50 - 100 ug/mL 03/12/2022 3:49 AM CDT [facility] Blood BLOOD SPECIMEN / Unknown Lab Venipuncture / Unknown 03/12/2022 1:58 AM CDT 03/12/2022 2:32 AM CDT Blair Mojica MD LAB - CHEMISTRY MARSHAL MEDEROS Performing Organization Address [facility]/ZIP Co de Phone Number [address] [phone], [place] [phone] * VANCOMYCIN LEVEL TROUGH (03/11/2022 11:39 PM CDT) Pathologist [facility] Vancomycin Trough 12.5 10.0 - 20.0 ug/mL 03/12/2022 12:10 AM CDT [facility] Blood BLOOD SPECIMEN / Unknown Venipuncture / Unknown 03/11/2022 11:39 PM CDT 03/11/2022 11:43 PM CDT Narrative [facility] - 03/12/2022 12:10 AM CDT See institution protocol. Blair Mojica MD LAB - CHEMISTRY [facility]SHAL [facility]EROS Performing Organization Address City/[facility]/ZIP Co de Phone Number [facility] [address] [place] [phone], [place] [phone] * ECHO COMPLETE (03/11/2022 3:29 PM CDT) Anatomical Region Laterality Modality Chest Echo 03/11/2022 2:38 PM CDT Narrative Procedure Note Misael Ritter MD - 03/11/2022 Blair Mojica MD ECHOCARDIOGRAPHY RAD IANT * (ABNORMAL) URINALYSIS REFLEX TO MICROSCOPIC NO CULTURE (03/11/2022 1:29 PM T) Color UA Yellow Straw, Yellow 03/11/2022 4:10 PM [facility] Clarity UA Clear Clear 03/11/2022 4:10 PM [facility] Specific [place] UA 1.010 1.005 - 1.030 03/11/2022 4:10 PM [facility] pH UA 7.0 5.0 - 8.0 pH 03/11/2022 4:10 PM [facility] Protein UA Negative Negative 03/11/2022 4:10 PM [facility] Glucose UA Negative Negative 03/11/2022 4:10 PM [facility] Ketone UA Negative Negative 03/11/2022 4:10 PM [facility] Bilirubin UA Negative Negative 03/11/2022 4:10 PM [facility] Blood UA Negative Negative 03/11/2022 4:10 PM [facility] Nitrite UA Negative Negative 03/11/2022 4:10 PM [facility] Leukocyte Esterase Negative Negative 03/11/2022 4:10 PM [facility] Urobilinogen UA Negative Negative mg/dL 03/11/2022 4:10 PM [facility] RBC UA 0-2 None Seen, 0-2, 3-5 /HPF 03/11/2022 4:10 PM [facility] WBC UA 0-5 None Seen, 0-5 /HPF 03/11/2022 4:10 PM [facility] Bacteria UA Trace(A) None /HPF 03/11/2022 4:10 PM [facility] Squamous Epithelial Cells UA 0-2 None Seen, 0-2, 3-5 /HPF 03/11/2022 4:10 PM [facility] Mucus UA 1+ /LPF 03/11/2022 4:10 PM [facility] Urine URINE SPECIMEN OBTAINED BY CLEAN CATCH PROCEDURE / Unknown Collection / Unknown 03/11/2022 1:29 PM CDT 03/11/2022 1:[address] [facility] - 03/11/2022 4:10 PM CDT Blair Mojica MD LAB - URINALYSIS ORD ERABLES [facility] [address] [place] [address], [facility] [phone] * CT HEAD WO CONTRAST (03/11/2022 11:15 [...] DATE/TIME OF EXAM: ??03/11/2022 11:15 AM, LOCATION [facility] INDICATION: R78.81: Bacteremia ADDITIONAL CLINICAL INFORMATION: [...] CONTRAST, DATE/TIME OF EXAM: 03/11/2022 11:15AM, LOCATION [facility] INDICATION: R78.81: Bacteremia ADDITIONAL CLINICAL INFORMATION: [...] - 5.1 mg/dL 03/11/2022 11:35 AM CDT [facility] Blood BLOOD SPECIMEN / Unknown Venipuncture / Unknown 03/11/2022 10:59 AM CDT 03/11/2022 11:05 AM CDT Blair Mojica MD LAB - CHEMISTRY [facility]SHAL MEDEROS [address] [address], [facility] [phone] * MAGNESIUM BLOOD (03/11/2022 10:59 AM CDT) Magnesium 1.8 1.6 - 2.6 mg/dL 03/11/2022 11:35 AM CDT [facility] Blood BLOOD SPECIMEN / Unknown Venipuncture / Unknown 03/11/2022 10:59 AM CDT 03/11/2022 11:05 AM CDT Bliar Mojica MD LAB - CHEMISTRY MARSHAL MEDEROS [facility] [address] [place] [phone], [facility] [phone] * LACTIC ACID BLOOD (03/11/2022 10:59 AM CDT) Lactic Acid-Stat 0.7 <=2.0 mmol/L 03/11/2022 11:29 AM CDT [facility] Blood BLOOD SPECIMEN / Unknown Venipuncture / Unknown 03/11/2022 10:59 AM CDT 03/11/2022 11:05 AM CDT Blair Mojica MD LAB - CHEMISTRY MARSHAL MEDEROS [address] [address], [facility] [phone] * (ABNORMAL) BLOOD GASES ART + COOX PANEL (03/11/2022 10:59 AM CDT) pH Arterial 7.47(H) 7.35 - 7.45 pH 03/11/2022 11:06 AM [facility] pO2 Arterial 80 80 - 100 mmHg 03/11/2022 11:06 AM [facility] pCO2 Arterial 41 35 - 45 mmHg 11:06 AM [facility] HCO3 Arterial 30 20 - 30 mmol/l 03/11/2022 11:06 AM [facility] BE Arterial 5.6(H) -2.0 - 2.0 mmol/L 03/11/2022 11:06 AM [facility] Oxyhemoglobin Arterial 95.0 % 03/11/2022 11:06 AM [facility] Dexoyhemoglobin (HHB) % 2.1 % 03/11/2022 11:06 AM [facility] Methemoglobin 0.9 0.0 - 2.0 % 03/11/2022 11:06 AM [facility] Carboxyhemoglobin 1.9 0.0 - 2.0 % 2021 11:06 AM [facility] O2 Content Arterial 15.7 Interpret within clinical context ml/dL 03/11/2022 11:06 AM [facility] Hemoglobin by COOX 11.7(L) 12.0 - 17.6 g/dL 03/11/2022 11:06 AM [facility] O2 Saturation Arterial 98 90 - 100 % 03/11/2022 11:06 AM [facility] FI O2 Arterial 21.0 % 03/11/2022 11:06 AM [facility] Blood, arterial ARTERIAL BLOOD SPECIMEN / Unknown Arterial Puncture / Unknown 03/11/2022 10:59 AM T 03/11/2022 11:03 AM [facility] Narrative [facility] - 03/11/2022 11:06 AM [facility] Carboxyhemoglobin Normal Concentration: Non-smokers: 0-2%; Smokers: 0-9%; Toxic: >20% Blair Mojica MD LAB - BLOOD GASES OR DERABLES Performing Organization Address [facility]/State/[facility] Co de Phone Number [facility] [address] [place] [address], [facility] [phone] * (ABNORMAL) PT-INR [facility] (03/11/2022 10:59 AM T) PT 15.4(H) 12.1 - 14.8 Seconds 03/11/2022 12:10 PM [facility] INR 1.2 See Comment 03/11/2022 12:10 PM [facility] Comment:The suggested therap eutic range for standard coumadin (warfarin) therapy is an INR of 2.0-3.0. For high-risk patients (Mechanical Mitral Valve Prosthesis, etc.), the suggested prophylactic therapeutic range is an INR of 2.5-3.5. Blood BLOOD SPECIMEN / Unknown Venipuncture / Unknown 03/11/2022 10:59 AM CDT 03/11/2022 11:05 AM T Blair Mojica MD LAB - COAGULATION OR DERABLES Performing Organization Address [facility]/State/ZIP Co de Phone Number [facility] [address] [place] [address], [facility] [phone] * (ABNORMAL) COMPREHENSIVE METABOLIC PANEL (03/11/2022 10:59 AM CDT) BUN 7 7 - 26 mg/dL 03/11/2022 11:35 AM [facility] Creatinine 0.50(L) 0.71 - 1.16 mg/dL 03/11/2022 11:35 AM [facility] Sodium 139 136 - 145 mmol/L 03/11/2022 11:35 AM [facility] Potassium 3.2(L) 3.5 - 4.5 mmol/L 03/11/2022 11:35 AM [facility] Chloride 104 98 - 107 mmol/L 03/11/2022 11:35 AM [facility] CO2 30(H) 22 - 29 mmol/L 03/11/2022 11:35 AM [facility] Glucose 103 70 - 115 mg/dL 03/11/2022 11:35 AM [facility] Calcium 8.6 8.4 - 10.2 mg/dL 03/11/2022 11:35 AM [facility] Protein Total 5.9(L) 6.0 - 8.3 g/dL 03/11/2022 11:35 AM [facility] Albumin 1.9(L) 3.4 - 5.0 g/dL 03/11/2022 11:35 AM [facility] Bilirubin Total 0.4 0.2 - 1.2 mg/dL 03/11/2022 11:35 AM [facility] Alkaline Phosphatase 71 40 - 150 U/L 03/11/2022 11:35 AM [facility] ALT 26 5 - 55 U/L 03/11/2022 11:35 AM [facility] AST 60(H) 5 - 34 U/L 03/11/2022 11:35 AM [facility] Anion Gap 8 8 - 18 03/11/2022 11:35 AM [facility] BUN/Creatinine Ratio 14 7 - 23 03/11/2022 11:35 AM [facility] Osmolality Calculated 286 270 - 300 mOsm/kg 03/11/2022 11:35 AM [facility] Albumin/Globulin Ratio 0.5(L) 1.1 - 2.3 03/11/2022 11:35 AM [facility] eGFR by CKD-EPI >90 >=90 mL/min/1.7 3 m2 03/11/2022 11:35 AM [facility] Blood BLOOD SPECIMEN / Unknown Venipuncture / Unknown 03/11/2022 10:59 AM CDT 03/11/2022 11:05 AM T Blair Mojica MD LAB - CHEMISTRY MARSHAL MEDEROS [place] Organization Address City/[facility] Co de Phone Number [address] [address], [facility] [phone] * (ABNORMAL) CBC W AUTO DIFFERENTIAL (03/11/2022 10:59 AM CDT) WBC 11.7(H) 3.5 - 10.5 10? 3 /uL 03/11/2022 11:29 AM [facility] RBC 3.47(L) 4.30 - 5.70 10? 6 /uL 03/11/2022 11:29 AM [facility] Hemoglobin 11.1(L) 12.0 - 17.6 g/dL 03/11/2022 11:29 AM [facility] Hematocrit 32.5(L) 35.2 - 51.7 % 03/11/2022 11:29 AM [facility] MCV 93.7 80.7 - 98.3 fL 03/11/2022 11:29 AM [facility] MCH 32.0 26.7 - 34.0 pg 03/11/2022 11:29 AM [facility] MCHC 34.2 30.8 - 35.9 g/dL 03/11/2022 11:29 AM [facility] Platelet Count 208 150 - 400 10? 3 /uL 03/11/2022 11:29 AM [facility] RDW-SD 41.5 36.0 - 50.0 fL 03/11/2022 11:29 AM [facility] RDW-CV 12.0 11.2 - 14.8 % 03/11/2022 11:29 AM [facility] MPV 11.4 9.4 - 12.9 fL 03/11/2022 11:29 AM [facility] nRBC Absolute 0.00 0 10? 3 /uL 03/11/2022 11:29 AM [facility] nRBC Auto 0.0 0 /100 WBC 03/11/2022 11:29 AM [facility] Neutrophils % 72.2(H) 35.0 - 70.0 % 03/11/2022 11:29 AM [facility] Lymphocytes % 13.8(L) 20.0 - 43.0 % 03/11/2022 11:29 AM [facility] Monocytes % 12.2 5.0 - 13.0 % 03/11/2022 11:29 AM [facility] Eosinophils % 0.9 0.0 - 6.0 % 03/11/2022 11:29 AM [facility] Basophil % 0.2 0.0 - 2.0 % 03/11/2022 11:29 AM [facility] Neutrophils Absolute 8.44(H) 1.60 - 7.00 10? 3 /uL 03/11/2022 11:29 AM [facility] Lymphocyte Absolute 1.61 1.10 - 3.90 10? 3 /uL 03/11/2022 11:29 AM [facility] Monocytes Absolute 1.42(H) 0.26 - 1.07 10? 3 /uL 03/11/2022 11:29 AM [facility] Eosinophils Absolute 0.11 0.00 - 0.47 10? 3 /uL 03/11/2022 11:29 AM [facility] Basophils Absolute 0.02 0.00 - 0.08 10? 3 /uL 03/11/2022 11:29 AM CDT [facility] Immature Granulocytes % 0.7 0.0 - 1.0 % 03/11/2022 11:29 AM CDT [facility] Immature Granulocytes Absolute 0.08 03/11/2022 11:29 AM CDT [facility] Blood BLOOD SPECIMEN / Unknown Venipuncture / Unknown 03/11/2022 10:59 AM CDT 03/11/2022 11:05 AM CDT Blair Mojica MD LAB - HEMATOLOGY ORD ERABLES Performing Organization Address City/[facility]/ZIP Co de Phone Number [facility] [address] [place] [address], [place] [phone] * GLUCOSE - POINT OF CARE (03/11/2022 10:41 AM CDT) Glucose WB/POC 107 70 - 115 mg/dL 03/11/2022 10:53 AM CDT [facility] Specimen Type Cap Fingerstick 2021 10:53 AM CDT [facility] Blood BLOOD SPECIMEN / Unknown 03/11/2022 10:41 AM CDT 03/11/2022 10:53 AM CDT Blair Mojica MD LAB - POINT OF CARE ORDERABLES Performing Organization Address [facility]/ZIP Co de Phone Number [facility] [address] [place] [address], [place] [phone] * CULTURE BLOOD (03/11/2022 3:48 AM CDT) Culture No growth day 5 JELLY 03/16/2022 8:02 AM CDT [facility] Blood PERIPHERAL BLOOD / Unknown Lab Venipuncture / Unknown 03/11/2022 3:48 AM CDT 03/11/2022 3:52 AM CDT Blair Mojica MD LAB - MICROBIOLOGY O RDERABLES Performing Organization Address City/[facility]/ZIP Co de Phone Number [facility] [address] [place] [address], [facility] [phone] * CULTURE BLOOD (03/11/2022 3:37 AM CDT) Culture No growth day 5 JELLY 03/16/2022 8:02 AM CDT [facility] Blood PERIPHERAL BLOOD / Unknown Lab Venipuncture / Unknown 03/11/2022 3:37 AM CDT 03/11/2022 3:52 AM CDT Blair Mojica MD LAB - MICROBIOLOGY O RDERABLES [facility] [address] [place] [address], [facility] [phone] * CT HEAD WO CONTRAST (03/10/2022 4:04 [...] DATE/TIME OF EXAM: ??03/10/2022 4:04 PM, LOCATION [facility] INDICATION: G93.40: Acute encephalopathy EXAMINATION: Computed [...] DATE/TIME OF EXAM: 03/10/2022 4:04 PM, LOCATION [facility] INDICATION: G93.40: Acute encephalopathy EXAMINATION: Computed [...] 10.5 10? 3 /uL 03/10/2022 12:15 PM [facility] RBC 3.76(L) 4.30 - 5.70 10? 6 /uL 03/10/2022 12:15 PM [facility] Hemoglobin 11.9(L) 12.0 - 17.6 g/dL 03/10/2022 12:15 PM [facility] Hematocrit 36.1 35.2 - 51.7 % 03/10/2022 12:15 PM [facility] MCV 96.0 80.7 - 98.3 fL 03/10/2022 12:15 PM [facility] MCH 31.6 26.7 - 34.0 pg 03/10/2022 12:15 PM [facility] MCHC 33.0 30.8 - 35.9 g/dL 03/10/2022 12:15 PM [facility] Platelet Count 183 150 - 400 10? 3 /uL 03/10/2022 12:15 PM [facility] RDW-SD 42.8 36.0 - 50.0 fL 03/10/2022 12:15 PM [facility] RDW-CV 12.0 11.2 - 14.8 % 03/10/2022 12:15 PM [facility] MPV 11.7 9.4 - 12.9 fL 03/10/2022 12:15 PM [facility] nRBC Absolute 0.02(H) 0 10? 3 /uL 03/10/2022 12:15 PM T [facility] nRBC Auto 0.1(H) 0 /100 WBC 03/10/2022 12:15 PM T [facility] Blood BLOOD SPECIMEN / Unknown Lab Venipuncture / Unknown 03/10/2022 11:47 AM CDT 03/10/2022 12:07 PM CDT Vicky Silva MD LAB - HEMATOLOGY ORD ERABLES Performing Organization Address City/[facility]/ZIP Co de Phone Number [facility] [address] [place] [phone], [place] [phone] * MAGNESIUM BLOOD (03/10/2022 11:47 AM CDT) Magnesium 1.7 1.6 - 2.6 mg/dL 03/10/2022 12:38 PM T [facility] Blood BLOOD SPECIMEN / Unknown Lab Venipuncture / Unknown 03/10/2022 11:47 AM CDT 03/10/2022 12:08 PM CDT Vicky Silva MD LAB - CHEMISTRY ORDE GATITO Performing Organization Address City/[facility]/ZIP Co de Phone Number [address] [address], [place] [phone] * (ABNORMAL) RENAL FUNCTION PANEL (03/10/2022 11:47 AM CDT) BUN 14 7 - 26 mg/dL 03/10/2022 12:38 PM T [facility] Creatinine 0.53(L) 0.71 - 1.16 mg/dL 03/10/2022 12:38 PM T [facility] Sodium 140 136 - 145 mmol/L 03/10/2022 12:38 PM T [facility] Potassium 3.8 3.5 - 4.5 mmol/L 03/10/2022 12:38 PM T [facility] Chloride 105 98 - 107 mmol/L 03/10/2022 12:38 PM [facility] CO2 25 22 - 29 mmol/L 03/10/2022 12:38 PM [facility] Glucose 105 70 - 115 mg/dL 03/10/2022 12:38 PM [facility] Albumin 2.1(L) 3.4 - 5.0 g/dL 03/10/2022 12:38 PM [facility] Calcium 9.3 8.4 - 10.2 mg/dL 03/10/2022 12:38 PM [facility] Phosphorus 2.0(L) 2.8 - 5.1 mg/dL 03/10/2022 12:38 PM [facility] Anion Gap 14 8 - 18 03/10/2022 12:38 PM [facility] BUN/Creatinine Ratio 26(H) 7 - 23 03/10/2022 12:38 PM [facility] Osmolality Calculated 291 270 - 300 mOsm/kg 03/10/2022 12:38 PM [facility] eGFR by CKD-EPI >90 >=90 mL/min/1.7 3 m2 03/10/2022 12:38 PM [facility] Blood BLOOD SPECIMEN / Unknown Lab Venipuncture / Unknown 03/10/2022 11:47 AM CDT 03/10/2022 12:08 PM T Vicky Silva MD LAB - CHEMISTRY ORDE [facility] Organization Address City/State/[facility] Co de Phone Number [facility] [address] [place] [phone], [facility] [phone] * (ABNORMAL) LACOSAMIDE (03/10/2022 11:47 AM CDT) Lacosamide 16.1(H) 1.0 - 10.0 ug/mL 03/17/2022 3:47 AM T [facility] ([facility]) Comment: INTERPRETIVE INFORMATION: Lacosamide, Serum or Plasma [...] developed and its performance characteristics determined by [employer]. It has not been cleared or approved by the [place] Food and Drug Administration. This test was performed in a CLIA-certified laboratory and is intended for clinical purposes. Performed By: [facility] [address] [place] [address] Inspector Salvage: Power Milian MD, PhD Blood BLOOD SPECIMEN / Unknown Lab Venipuncture / Unknown 03/10/2022 11:47 AM CDT 03/10/2022 12:03 PM CDT Vicky Silva MD LAB - CHEMISTRY ORDE GATITO [facility] [employer] ([facility]) [address] [place] [address], [facility] * CLOBAZAM QUANT BLOOD (03/10/2022 11:47 AM CDT) [facility] Clobazam 236 30 - 300 ng/mL 03/14/2022 3:29 PM CDT [facility] [employer] ([facility]) Comment: INTERPRETIVE INFORMATION: Clobazam and Metabolite, Quant, [...] influenced by drug-drug interactions and by poor [id number] metabolism. ??The metabolite, N-desmethylclobazam has about 20% activity of clobazam. ??Adverse effects may include constipation, somnolence, sedation and skin rash. ??The concomitant use of clobazam with other central nervous system ([employer]) depressants may increase the risk of somnolence and sedation. Test developed and characteristics determined by [facility] [employer]. See Compliance Statement B: [email or web address]/CS N-Desmethylclobazam 683 300 - 3000 ng/mL 03/14/2022 3:29 PM CDT [employer] ([facility]) Comment: Performed By: [facility] [address] [place] [address] Inspector Salvage: Power Milian MD, PhD Blood BLOOD SPECIMEN / Unknown Lab Venipuncture / Unknown 03/10/2022 11:47 AM CDT 03/10/2022 12:03 PM CDT Vicky Silva MD LAB - CHEMISTRY ORDE GATITO Performing Organization Address [facility]/ZIP Co de Phone Number [facility]) [address] [place] [address] * (ABNORMAL) VANCOMYCIN LEVEL TROUGH (03/10/2022 11:47 AM CDT) Vancomycin Trough 7.7(L) 10.0 - 20.0 ug/mL 03/10/2022 12:38 PM CDT [facility] Blood BLOOD SPECIMEN / Unknown Lab Venipuncture / Unknown 03/10/2022 11:47 AM CDT 03/10/2022 12:08 PM CDT Narrative [facility] - 03/10/2022 12:38 PM CDT See institution protocol. Elmo Ozuna MD LAB - CHEMISTR Y ORDERABLES [facility] [address] [place] [address], [facility] [phone] * VAS LEFT ARTERIAL DUPLEX LE (03/09/2022 4:34 PM CDT) Anatomical Region Laterality Modality Lower Extremity Intravascular Ul trasound 03/09/2022 3:23 PM CDT Narrative Procedure Note Jose Davila MD - 03/09/2022 Vicky A Ricardo MD VASCULAR LAB ORDERAB LES * VAS [...] MRSA DNA PCR (03/09/2022 8:06 AM CDT) [facility] MRSA DNA by PCR Detected( A) Not detected 03/09/2022 11:26 AM CDT [facility] Microbiology SPECIMEN FROM NASAL FOSSAE / Unknown Collection / Unknown 03/09/2022 8:06 AM CDT 03/09/2022 8:12 AM CDT Narrative [facility] - 03/09/2022 11:26 AM CDT 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 Elmo Ozuna MD LAB - MICROBIO LOGY ORDERABLES [facility] [address] [place] [address], [facility] [phone] * (ABNORMAL) COMPREHENSIVE METABOLIC PANEL (03/09/2022 4:11 AM CDT) [facility] BUN 15 7 - 26 mg/dL 03/09/2022 4:41 AM CDT [facility] Creatinine 0.63(L) 0.71 - 1.16 mg/dL 03/09/2022 4:41 AM CDT [facility] Sodium 144 136 - 145 mmol/L 03/09/2022 4:41 AM [facility] Potassium 4.0 3.5 - 4.5 mmol/L 03/09/2022 4:41 AM [facility] Chloride 100 98 - 107 mmol/L 03/09/2022 4:41 AM [facility] CO2 25 22 - 29 mmol/L 03/09/2022 4:41 AM [facility] Glucose 134(H) 70 - 115 mg/dL 03/09/2022 4:41 AM [facility] Calcium 9.3 8.4 - 10.2 mg/dL 03/09/2022 4:41 AM [facility] Protein Total 6.7 6.0 - 8.3 g/dL 03/09/2022 4:41 AM [facility] Albumin 2.4(L) 3.4 - 5.0 g/dL 03/09/2022 4:41 AM [facility] Bilirubin Total 0.6 0.2 - 1.2 mg/dL 03/09/2022 4:41 AM [facility] Alkaline Phosphatase 74 40 - 150 U/L 03/09/2022 4:41 AM [facility] ALT 27 5 - 55 U/L 03/09/2022 4:41 AM [facility] AST 75(H) 5 - 34 U/L 03/09/2022 4:41 AM [facility] Anion Gap 23(H) 8 - 18 03/09/2022 4:41 AM [facility] BUN/Creatinine Ratio 24(H) 7 - 23 03/09/2022 4:41 AM [facility] Osmolality Calculated 301(H) 270 - 300 mOsm/kg 03/09/2022 4:41 AM [facility] Albumin/Globulin Ratio 0.6(L) 1.1 - 2.3 03/09/2022 4:41 AM [facility] eGFR by CKD-EPI >90 >=90 mL/min/1.7 3 m2 03/09/2022 4:41 AM [facility] Blood BLOOD SPECIMEN / Unknown Venipuncture / Unknown 03/09/2022 4:11 AM CDT 03/09/2022 4:15 AM CDT Neha Palomino MD LAB - CHEMISTRY MARSHAL MEDEROS [facility] [address] [place] [phone], [facility] [phone] * (ABNORMAL) PROCALCITONIN LEVEL (03/09/2022 2:00 AM CDT) PROCALCITONIN 1.00(H) <=0.10 ng/mL 03/09/2022 4:06 AM CDT [facility] Blood BLOOD SPECIMEN / Unknown Venipuncture / Unknown 03/09/2022 2:00 AM CDT 03/09/2022 3:28 AM CDT Narrative [facility] - 03/09/2022 4:06 AM CDT The [...] Change in Procalcitonin Calculator is available at [email or web address] ?? If clinical picture has not improved and PCT remains high, reevaluate and consider treatment failure or other causes. Neha Palomino MD LAB - CHEMISTRY MARSHAL GATITO [facility] [address] [place] [address], [place] [phone] * CULTURE BLOOD (03/09/2022 2:00 AM CDT) Culture No growth day 5 JELLY 03/14/2022 8:34 AM CDT [facility] Blood PERIPHERAL BLOOD / Unknown Venipuncture / Unknown 03/09/2022 2:00 AM CDT 03/09/2022 3:28 AM CDT Neha Palomino MD LAB - MICROBIOLOGY O RDERABLES Performing Organization Address City/[facility]/ZIP Co de Phone Number [facility] [address] [place] [address], [facility] [phone] * (ABNORMAL) DIFFERENTIAL MANUAL (03/09/2022 1:35 AM CDT) WBC (corrected for NRBC) 23.0 10? 3 /uL 03/09/2022 2:34 AM CDT [facility] Total Cell Count 100 03/09/2022 2:34 AM CDT [facility] Neutrophils Absolute Manual 16.79(H) 1.60 - 7.00 10? 3 /uL 03/09/2022 2:34 AM CDT [facility] Comment:(BANDS+SEGS) x WBC = NEUT # (ANC) Lymphocyte Absolute Manual 2.07 1.10 - 3.90 10? 3 /uL 03/09/2022 2:34 AM CDT [facility] Monocytes Absolute Manual 4.14(H) 0.26 - 1.07 10? 3 /uL 03/09/2022 2:34 AM CDT [facility] Band % Manual 3 0 - 10 % 03/09/2022 2:34 AM CDT [facility] Neutrophil % Manual 70 35 - 70 % 03/09/2022 2:34 AM CDT [facility] Lymphocyte % Manual 9(L) 20 - 43 % 03/09/2022 2:34 AM CDT [facility] Monocytes % Manual 18(H) 5 - 13 % 03/09/2022 2:34 AM CDT [facility] Platelet Estimate Adequate Adequate 03/09/2022 2:34 AM CDT [facility] Luanne Cells 1+(A) None 03/09/2022 2:34 AM CDT [facility] Blood BLOOD SPECIMEN / Unknown Venipuncture / Unknown 03/09/2022 1:35 AM CDT 03/09/2022 2:00 AM CDT Neha Palomino MD LAB - HEMATOLOGY ORD ERABLES [facility] [address] [place] [address], [facility] [phone] * (ABNORMAL) CULTURE BLOOD (03/09/2022 1:35 AM CDT) Culture Growth of Staphylococcus aureus(AA) JELLY 03/14/2022 7:14 PM CDT [facility] Comment:Staphylococcus aureu s methicillin-susceptible (MSSA) detected by penicillin binding protein immunoassay. Gram Stain Gram-positive cocci in clusters(AA) 03/14/2022 7:14 PM CDT [facility] Blood BLOOD SPECIMEN / Unknown Venipuncture / Unknown 03/09/2022 1:35 AM CDT 03/09/2022 1:59 AM CDT Narrative [facility] - 03/14/2022 7:14 PM CDT Positive [...] Palomino MD LAB - MICROBIOLOGY O RDERABLES [facility] [address] [place] [address], [facility] [phone] * (ABNORMAL) CBC W AUTO DIFFERENTIAL (03/09/2022 1:35 AM CDT) WBC 23.0(H) 3.5 - 10.5 10? 3 /uL 03/09/2022 2:26 AM [facility] RBC 4.18(L) 4.30 - 5.70 10? 6 /uL 03/09/2022 2:26 AM [facility] Hemoglobin 13.6 12.0 - 17.6 g/dL 03/09/2022 2:26 AM [facility] Hematocrit 40.0 35.2 - 51.7 % 03/09/2022 2:26 AM [facility] MCV 95.7 80.7 - 98.3 fL 03/09/2022 2:26 AM [facility] MCH 32.5 26.7 - 34.0 pg 03/09/2022 2:26 AM [facility] MCHC 34.0 30.8 - 35.9 g/dL 03/09/2022 2:26 AM [facility] Platelet Count 160 150 - 400 10? 3 /uL 03/09/2022 2:26 AM [facility] Comment: Checked by peripheral smear. Few fibrin strands visible This is an appended report. ??These results have been appended to a previously preliminary verified report. RDW-SD 43.7 36.0 - 50.0 fL 03/09/2022 2:26 AM [facility] RDW-CV 12.4 11.2 - 14.8 % 03/09/2022 2:26 AM CDT [facility] MPV 03/09/2022 2:26 AM CDT [facility] Comment:Unable to Report Immature Platelet Fraction 03/09/2022 2:26 AM CDT [facility] Comment:Unable to Report' nRBC Absolute 0.00 0 10? 3 /uL 03/09/2022 2:26 AM CDT [facility] nRBC Auto 0.0 0 /100 WBC 03/09/2022 2:26 AM CDT [facility] Blood BLOOD SPECIMEN / Unknown Venipuncture / Unknown 03/09/2022 1:35 AM CDT 03/09/2022 2:00 AM CDT Neha Palomino MD LAB - HEMATOLOGY ORD ERABLES Performing Organization Address City/[facility]/ZIP Co de Phone Number [address] [address], [facility] [phone] * (ABNORMAL) LACTIC ACID BLOOD (03/09/2022 1:35 AM CDT) Lactic Acid-Stat 3.0(H) <=2.0 mmol/L 03/09/2022 2:22 AM CDT [facility] Blood BLOOD SPECIMEN / Unknown Venipuncture / Unknown 03/09/2022 1:35 AM CDT 03/09/2022 2:00 AM CDT Elmo Ozuna MD LAB - CHEMISTR Y ORDERABLES [address] [address], [place] [phone] * CT CHEST ABDOMEN PELVIS W CONT [...] pelvis. > Dictated by Brandee Celestin MD (physician president). I, John Graham MD have personally reviewed and interpreted this examination/study. > Interpreting Provider: John Graham MD on 03/09/2022 9:27 AM Narrative 03/09/2022 9:27 AM CDT PROCEDURE: ??CT CHEST ABDOMEN PELVIS W CONT, DATE/TIME OF EXAM: ??03/08/2022 10:05 PM, LOCATION [facility] INDICATION: R50.9: Fever, unspecified fever cause [...] CONT, DATE/TIME OF EXAM:03/08/2022 10:05 PM, LOCATION [facility] INDICATION: R50.9: Fever, unspecified fever cause [...] Mild dependent left basilar consolidation with mild [id number]. Mild posterior right upper lung tree-in-bud opacities. [...] pelvis. > Dictated by Brandee Celestin MD (physician president). I, John Graham MD have personally reviewed and interpreted this examination/study. > Interpreting Provider: John Graham MD on 03/09/2022 9:27 AM Elizabeth Hernandez MD CT ORDERABLES * SARS-COV-2 (COVID-19)+INFLU A+B PCR RAPID (03/08/2022 9:38 PM CDT) COVID-19 PCR Not detected Not detected 03/08/20 10:21 PM CDT [facility] Influenza A Rapid BILLY Not Detected Not Detected 03/08/2022 10:21 PM CDT [facility] Influenza B BILLY Rapid Not Detected Not Detected 03/08/2022 10:21 PM CDT [facility] Microbiology SPECIMEN FROM NASOPHARYNGEAL STRUCTURE / Unknown Collection / Unknown 03/08/2022 9:38 PM CDT 03/08/2022 9:40 PM CDT Narrative [facility] - 03/08/2022 10:21 PM CDT Influenza assay [...] acid amplification assay performance was validated by [facility]. This test has been authorized by the [...] Hernandez MD LAB - MICROBIOLOGY O RDERABLES [facility] [address] [place] [address], [facility] [phone] * (ABNORMAL) LACTIC ACID BLOOD REFLEX TO REPEAT (03/08/2022 9:37 PM CDT) Lactic Acid-Stat 2.2(H) <=2.0 mmol/L 03/08/2022 10:06 PM CDT [facility] Blood BLOOD SPECIMEN / Unknown Venipuncture / Unknown 03/08/2022 9:37 PM CDT 03/08/2022 9:42 PM CDT Elizabeth Hernandez MD LAB - CHEMISTRY MARSHAL MEDEROS [address] [address], [place] [phone] * TROPONIN I (03/08/2022 9:37 PM CDT) Pathologist [facility] Troponin I 0.016 <0.032 ng/mL 03/08/2022 10:17 PM CDT [facility] Blood BLOOD SPECIMEN / Unknown Venipuncture / Unknown 03/08/2022 9:37 PM CDT 03/08/2022 9:42 PM CDT Elizabeth Hernandez MD LAB - CHEMISTRY MARSHAL MEDEROS Performing Organization Address [facility]/ZIP Co de Phone Number [address] [address], [place] [phone] * LACTIC ACID REPEAT REFLEX (03/08/2022 5:26 PM CDT) Pathologist [facility] Lactic Acid Repeat Reflex Order LACTIC ACID REPEAT HAS BEEN ORDERED 03/08/2022 7:32 PM CDT [facility] Blood BLOOD SPECIMEN / Unknown Venipuncture / Unknown 03/08/2022 5:26 PM CDT 03/08/2022 6:01 PM CDT Elizabeth Hernandez MD LAB - CHEMISTRY MARSHAL MEDEROS [address] [address], [place] [phone] * (ABNORMAL) LACTIC ACID BLOOD REFLEX TO REPEAT (03/08/2022 5:26 PM CDT) Pathologist [facility] Lactic Acid-Stat 3.3(HH) <=2.0 mmol/L 03/08/2022 6:04 PM CDT [facility] Comment:RESULTS CALLED TO AN D READ BACK BY Cami Robin, RN AT 6:04 PM, 03/08/2022 Blood BLOOD SPECIMEN / Unknown Venipuncture / Unknown 03/08/2022 5:26 PM CDT 03/08/2022 5:38 PM CDT Elizabeth Hernandez MD LAB - CHEMISTRY MARSHAL MEDEROS [facility] [address] [place] [address], [facility] [phone] * CULTURE URINE (03/08/2022 5:26 PM CDT) Culture Urine No growth (<100 CFU/mL) JELLY 03/09/2022 11:26 PM CDT [facility] Urine URINE SPECIMEN OBTAINED BY CLEAN CATCH PROCEDURE / Unknown Collection / Unknown 03/08/2022 5:26 PM CDT 03/08/2022 5:29 PM CDT Elizabeth Hernandez MD LAB - MICROBIOLOGY O RDERABLES [facility] [address] [place] [address], [facility] [phone] * (ABNORMAL) URINALYSIS REFLEX TO MICROSCOPIC NO CULTURE (03/08/2022 5:26 PM CDT) Color UA Yellow Straw, Yellow 03/08/2022 5:41 PM CDT [facility] Clarity UA Clear Clear 03/08/2022 5:41 PM CDT [facility] Specific [place] UA 1.023 1.005 - 1.030 03/08/2022 5:41 PM CDT [facility] pH UA 6.0 5.0 - 8.0 pH 03/08/2022 5:41 PM CDT [facility] Protein UA 1+(A) Negative 03/08/2022 5:41 PM CDT [facility] Glucose UA 1+(A) Negative 03/08/2022 5:41 PM CDT [facility] Ketone UA Trace(A) Negative 03/08/2022 5:41 PM CDT [facility] Bilirubin UA Negative Negative 03/08/2022 5:41 PM CDT [facility] Blood UA Negative Negative 03/08/2022 5:41 PM CDT [facility] Nitrite UA Negative Negative 03/08/2022 5:41 PM CDT [facility] Leukocyte Esterase Negative Negative 03/08/2022 5:41 PM CDT [facility] Urobilinogen UA 4.0(A) Negative mg/dL 03/08/2022 5:41 PM CDT [facility] RBC UA 3-5 None Seen, 0-2, 3-5 /HPF 03/08/2022 5:41 PM CDT [facility] WBC UA 0-5 None Seen, 0-5 /HPF 03/08/2022 5:41 PM CDT [facility] Squamous Epithelial Cells UA None Seen None Seen, 0-2, 3-5 /HPF 03/08/2022 5:41 PM CDT [facility] Urine URINE SPECIMEN OBTAINED BY CLEAN CATCH PROCEDURE / Unknown Collection / Unknown 03/08/2022 5:26 PM CDT 03/08/2022 5:29 PM CDT Narrative [facility] - 03/08/2022 5:41 PM CDT Elizabeth Hernandez MD LAB - URINALYSIS ORD ERABLES [facility] [address] [place] [address], [facility] [phone] * TROPONIN I (03/08/2022 5:26 PM CDT) Troponin I 0.023 <0.032 ng/mL 03/08/2022 7:20 PM CDT [facility] Blood BLOOD SPECIMEN / Unknown Venipuncture / Unknown 03/08/2022 5:26 PM CDT 03/08/2022 5:38 PM CDT Elizabeth Hernandez MD LAB - CHEMISTRY ORDE RABLES [facility] [address] [place] [address], [facility] [phone] * XR FOOT LEFT 3VW OR MORE (03/08/2022 3:38 PM CDT) Anatomical Region Laterality Modality Ankle / Foot Radiographic Cynthia ging 03/08/2022 3:37 PM CDT Narrative 03/08/2022 4:48 PM CDT PROCEDURE: ??XR FOOT LEFT 3VW OR MORE, DATE/TIME OF EXAM: ??03/08/2022 3:38 PM, LOCATION [facility] INDICATION: R50.9: Fever, unspecified fever cause [...] noted. Report dictated by Param Eubanks MD (physician president). Eron Thomason have personally reviewed and interpreted this examination/study. > Interpreting Provider: Eron Payton on 03/08/2022 4:48 PM Procedure Note Eron Payton MD - 03/08/2022 PROCEDURE: XR FOOT LEFT 3VW OR MORE, DATE/TIME OF EXAM: 23:38 PM, LOCATION [facility] INDICATION: R50.9: Fever, unspecified fever cause [...] noted. Report dictated by Param Eubanks MD (physician president). Eron Thomason have personally reviewed and [...] DATE/TIME OF EXAM: ??03/08/2022 3:14 PM, LOCATION [facility] INDICATION: R50.9: Fever, unspecified fever cause ADDITIONAL CLINICAL INFORMATION: Ordering Provider Reason For Exam: ??infection? SOB COMPARISON: 05/01/2021 FINDINGS/IMPRESSION: Mild left basilar atelectasis or airspace disease. A small left pleural effusion cannot be excluded. No pneumothorax. Heart size and mediastinal contours are normal. No acute osseous abnormality. Report dictated by Param Eubanks MD (physician president). Eron Thomason have personally reviewed and interpreted this examination/study. > Interpreting Provider: Eron Payton on 03/08/2022 4:44 PM Procedure Note Eron Payton MD - 03/08/2022 PROCEDURE: XR CHEST 1VW PORTABLE, DATE/TIME OF EXAM: 03/08/2022 3:14PM, LOCATION [facility] INDICATION: R50.9: Fever, unspecified fever cause ADDITIONAL CLINICAL INFORMATION: Ordering Provider Reason For Exam: infection? SOB COMPARISON: 05/01/2021 FINDINGS/IMPRESSION: Mild left basilar atelectasis or airspace disease. A small left pleural effusion cannot be excluded. No pneumothorax. Heart size and mediastinal contours are normal. No acute osseous abnormality. Report dictated by Param Eubanks MD (physician president). Eron Thomason have personally reviewed and interpreted this examination/study. > Interpreting Provider: Eron Payton on 03/08/2022 4:44 PM Elizabeth Hernandez MD DIAGNOSTIC IMAGING O RDCAMILLEBLES * VALPROIC ACID LEVEL (03/08/2022 3:01 PM CDT) Valproic Acid Total 99 50 - 100 ug/mL 03/08/2022 3:34 PM CDT [facility] Blood BLOOD SPECIMEN / Unknown Venipuncture / Unknown 03/08/2022 3:01 PM CDT 03/08/2022 3:23 PM CDT Elizabeth Hernandez MD LAB - CHEMISTRY MARSHAL MEDEROS [address] [address], [place] [phone] * CULTURE BLOOD (03/08/2022 3:01 PM CDT) Pathologist [facility] Culture No growth day 5 JELLY 03/13/2022 7:03 PM CDT [facility] Blood PERIPHERAL BLOOD / Unknown Venipuncture / Unknown 03/08/2022 3:01 PM CDT 03/08/2022 3:11 PM CDT Elizabeth Hernandez MD LAB - MICROBIOLOGY O RDERABLES Performing Organization Address City/[facility]/ZIP Co de Phone Number [facility] [address] [place] [address], [facility] [phone] * LACTIC ACID REPEAT REFLEX (03/08/2022 2:55 PM CDT) Pathologist [facility] Lactic Acid Repeat Reflex Order LACTIC ACID REPEAT HAS BEEN ORDERED 03/08/2022 5:03 PM CDT [facility] Blood BLOOD SPECIMEN / Unknown Venipuncture / Unknown 03/08/2022 2:55 PM CDT 03/08/2022 3:39 PM CDT Elizabeth Hernandez MD LAB - CHEMISTRY MARSHAL MEDEROS Performing Organization Address City/[facility]/ZIP Co de Phone Number [address] [address], [place] [phone] * (ABNORMAL) DIFFERENTIAL MANUAL (03/08/2022 2:55 PM CDT) WBC (corrected for NRBC) 20.8 10? 3 /uL 03/08/2022 4:12 PM CDT [facility] Total Cell Count 100 03/08/2022 4:12 PM T [facility] Neutrophils Absolute Manual 15.60(H) 1.60 - 7.00 10? 3 /uL 03/08/2022 4:12 PM T [facility] Comment:(BANDS+SEGS) x WBC = NEUT # (ANC) Lymphocyte Absolute Manual 2.50 1.10 - 3.90 10? 3 /uL 03/08/2022 4:12 PM CDT [facility] Monocytes Absolute Manual 2.70(H) 0.26 - 1.07 10? 3 /uL 03/08/2022 4:12 PM T [facility] Neutrophil % Manual 75(H) 35 - 70 % 03/08/2022 4:12 PM T [facility] Lymphocyte % Manual 12(L) 20 - 43 % 03/08/2022 4:12 PM T [facility] Monocytes % Manual 13 5 - 13 % 03/08/2022 4:12 PM [facility] Platelet Estimate Adequate Adequate 03/08/2022 4:12 PM [facility] RBC Morphology Normal 03/08/2022 4:12 PM T [facility] Large Platelet Count Occasional(A ) None 03/08/2022 4:12 PM T [facility] Blood BLOOD SPECIMEN / Unknown Venipuncture / Unknown 03/08/2022 2:55 PM CDT 03/08/2022 3:13 PM CDT Elizabeth Hernandez MD LAB - HEMATOLOGY ORD ERABLES [facility] [address] [place] [address], [facility] [phone] * (ABNORMAL) LEVETIRACETAM LEVEL (03/08/2022 2:55 PM CDT) Levetiracetam 59(H) 10 - 40 ug/mL 03/10/2022 3:00 AM CDT [facility] ([facility]) Comment: INTERPRETIVE INFORMATION: Keppra (Levetiracetam) Therapeutic Range: ??10-40 ug/mL ?Toxic: ??Not well Established Pharmacokinetics of levetiracetam are affected by renal function. Adverse effects may include somnolence, weakness, headache and vomiting. This levetiracetam (Keppra) immunoassay uses the [employer] reagents, which has known cross-reactivity with the drug brivaracetam (Briviact) and may report inaccurate results. Patients transitioning from levetiracetam to brivaracetam or those who are using both medications should not monitor drug concentrations with the [employer] assay. These patients should be monitored using a validated chromatographic methodology that distinguishes between drugs to determine drug concentrations. Performed By: [place] [address] Inspector Salvage: Power Milian MD, PhD Blood BLOOD SPECIMEN / Unknown Venipuncture / Unknown 03/08/2022 2:55 PM CDT 03/08/2022 3:11 PM CDT Elizabeth Hernandez MD LAB - THERAPEUTIC DR DIAZ MONITORING ORDERABLES [facility]) [address] [place] [address], [facility] * (ABNORMAL) COMPREHENSIVE METABOLIC PANEL (03/08/2022 2:55 PM CDT) BUN 21 7 - 26 mg/dL 03/08/2022 3:43 PM CDT [facility] Creatinine 0.87 0.71 - 1.16 mg/dL 03/08/2022 3:43 PM CDT [facility] Sodium 143 136 - 145 mmol/L 03/08/2022 3:43 PM CDT [facility] Potassium 4.0 3.5 - 4.5 mmol/L 03/08/2022 3:43 PM CDT [facility] Chloride 102 98 - 107 mmol/L 03/08/2022 3:43 PM CDT [facility] CO2 29 22 - 29 mmol/L 03/08/2022 3:43 PM [facility] Glucose 113 70 - 115 mg/dL 03/08/2022 3:43 PM [facility] Calcium 9.5 8.4 - 10.2 mg/dL 03/08/2022 3:43 PM [facility] Protein Total 7.3 6.0 - 8.3 g/dL 03/08/2022 3:43 PM [facility] Albumin 2.7(L) 3.4 - 5.0 g/dL 03/08/2022 3:43 PM [facility] Bilirubin Total 0.4 0.2 - 1.2 mg/dL 03/08/2022 3:43 PM [facility] Alkaline Phosphatase 84 40 - 150 U/L 03/08/2022 3:43 PM [facility] ALT 26 5 - 55 U/L 03/08/2022 3:43 PM [facility] AST 74(H) 5 - 34 U/L 03/08/2022 3:43 PM [facility] Anion Gap 16 8 - 18 03/08/2022 3:43 PM [facility] BUN/Creatinine Ratio 24(H) 7 - 23 03/08/2022 3:43 PM [facility] Osmolality Calculated 300 270 - 300 mOsm/kg 03/08/2022 3:43 PM [facility] Albumin/Globulin Ratio 0.6(L) 1.1 - 2.3 03/08/2022 3:43 PM [facility] eGFR by CKD-EPI >90 >=90 mL/min/1.7 3 m2 03/08/2022 3:43 PM [facility] Blood BLOOD SPECIMEN / Unknown Venipuncture / Unknown 03/08/2022 2:55 PM CDT 03/08/2022 3:13 PM T Elizabeth Hernandez MD LAB - CHEMISTRY ORDByron MEDEROS [place] Organization Address City/State/ZIP Co de Phone Number [facility] [address] [place] [address], [facility] [phone] * (ABNORMAL) CBC W AUTO DIFFERENTIAL (03/08/2022 2:55 PM CDT) WBC 20.8(H) 3.5 - 10.5 10? 3 /uL 03/08/2022 3:26 PM [facility] RBC 4.43 4.30 - 5.70 10? 6 /uL 03/08/2022 3:26 PM [facility] Hemoglobin 14.3 12.0 - 17.6 g/dL 03/08/2022 3:26 PM [facility] Hematocrit 42.9 35.2 - 51.7 % 03/08/2022 3:26 PM [facility] MCV 96.8 80.7 - 98.3 fL 03/08/2022 3:26 PM [facility] MCH 32.3 26.7 - 34.0 pg 03/08/2022 3:26 PM [facility] MCHC 33.3 30.8 - 35.9 g/dL 03/08/2022 3:26 PM [facility] Platelet Count 211 150 - 400 10? 3 /uL 03/08/2022 3:26 PM [facility] RDW-SD 44.7 36.0 - 50.0 fL 03/08/2022 3:26 PM [facility] RDW-CV 12.4 11.2 - 14.8 % 03/08/2022 3:26 PM [facility] MPV 11.9 9.4 - 12.9 fL 03/08/2022 3:26 PM [facility] nRBC Absolute 0.00 0 10? 3 /uL 03/08/2022 3:26 PM [facility] nRBC Auto 0.0 0 /100 WBC 03/08/2022 3:26 PM [facility] Blood BLOOD SPECIMEN / Unknown Venipuncture / Unknown 03/08/2022 2:55 PM CDT 03/08/2022 3:13 PM T Elizabeth Hernandez MD LAB - HEMATOLOGY ORD ERABLES [facility] [address] [place] [address], [facility] [phone] * (ABNORMAL) CULTURE BLOOD (03/08/2022 2:55 PM CDT) Pathologist [facility] Culture Growth of Staphylococcus aureus(AA) 03/14/2022 7:02 PM CDT [facility] Comment:Staphylococcus aureu s methicillin-susceptible (MSSA) detected by penicillin binding protein immunoassay. Gram Stain Gram-positive cocci in clusters(AA) 03/14/2022 7:02 PM CDT [facility] Blood PERIPHERAL BLOOD / Unknown Venipuncture / Unknown 03/08/2022 2:55 PM CDT 03/08/2022 3:11 PM CDT Narrative [facility] - 03/14/2022 7:02 PM CDT Positive at 14 hr Infectious disease consultation strongly recommended, where available. Refer to previously reported susceptibility testing, specimen number: [id number] Elizabeth Hernandez MD LAB - MICROBIOLOGY O RDERABLES [facility] [address] [place] [address], [facility] [phone] * (ABNORMAL) TROPONIN I (03/08/2022 2:55 PM CDT) [facility] Troponin I 0.032(H) <0.032 ng/mL 03/08/2022 3:41 PM CDT [facility] Blood BLOOD SPECIMEN / Unknown Venipuncture / Unknown 03/08/2022 2:55 PM CDT 03/08/2022 3:23 PM CDT Elizabeht Hernandez MD LAB - CHEMISTRY MARSHAL MEDEROS [facility] [address] [place] [phone], [facility] [phone] * (ABNORMAL) LACTIC ACID BLOOD REFLEX TO REPEAT (03/08/2022 2:55 PM CDT) Pathologist [facility] Lactic Acid-Stat 2.8(H) <=2.0 mmol/L 03/08/2022 3:39 PM CDT [facility] Blood BLOOD SPECIMEN / Unknown Venipuncture / Unknown 03/08/2022 2:55 PM CDT 03/08/2022 3:13 PM CDT Elizabeth Hernandez MD LAB - CHEMISTRY ORDE GATITO Performing Organization Address City/[facility]/ZIP Co de Phone Number [facility] [address] [place] [address], [place] [phone] * (ABNORMAL) GLUCOSE - POINT OF CARE (03/08/2022 2:31 PM CDT) Pathologist [facility] Glucose WB/POC 148(H) 70 - 115 mg/dL 03/08/2022 2:32 PM CDT [facility] Specimen Type Cap Fingerstick 2021 2:32 PM CDT [facility] Blood BLOOD SPECIMEN / Unknown 03/08/2022 2:31 PM CDT 03/08/2022 2:32 PM CDT Elizabeth Hernandez MD LAB - POINT OF CARE ORDERABLES Performing Organization Address [facility]/ZIP Co de Phone Number [address] [address], [place] [phone] * EKG 12-LEAD (03/08/2022 2:05 PM CDT) Ventricular Rate 123 BPM [facility] MUSE Atrial Rate 123 BPM [facility] MUSE P-R Interval 126 ms [facility] MUSE QRS Duration ms 78 ms [facility] MUSE Q-T Interval ms 312 ms [facility] MUSE QTC Calculation (Bezet) 446 ms [facility] MUSE Calculated P [place] 88 degrees [facility] MUSE Calculated R [place] 22 degrees SL MUSE Calculated T [place] 93 degrees SL MUSE Interpretation EKG SINUS TACHYCARDIA [...] ANTERIOR LEADS Confirmed by SIRENA MARCELO MD ([id number]) on 03/08/2022 2:48:22 PM [facility] MUSE 03/08/2022 2:05 PM CDT 03/08/2022 2:48 PM CDT Elizabeth Hernandez MD ECG ORDERABLES [facility] IRINEO documented in this encounter Visit Diagnoses Diagnosis Sepsis without acute organ dysfunction, due to unspecified organism (HCC)- Primary Fever, unspecified fever cause Pneumonia of left lung due to infectious organism, unspecified part of lung Lactic acidosis Acidosis Altered mental status, unspecified altered mental status type Tachycardia Tachycardia, unspecified Acute encephalopathy Encephalopathy, unspecified Bacteremia PAD (peripheral artery disease) (HCC) Unspecified disorders of arteries and arterioles Dry gangrene (HCC) Gangrene Protein-calorie malnutrition, unspecified severity (HCC) Sepsis without acute organ dysfunction (HCC) Bacteremia Pneumonia Pneumonia, organism unspecified Epilepsy, unspecified, not intractable, without status epilepticus (CMS/HCC) Ulcer of left foot (HCC) Ulcer of other part of foot PAD (peripheral artery disease) (HCC) Unspecified disorders of arteries and arterioles Protein calorie malnutrition (HCC) Unspecified protein-calorie malnutrition History of CVA (cerebrovascular accident) Transient ischemic attack (TIA), and cerebral infarction without residual deficits Hypertension Unspecified essential hypertension documented in this encounter Administered Medications Inactive [...] 03/30/2022 1:39 PM CDT 3 mL acetaminophen (Ofirmev) injection 1,000 mg 1,000 mg, at 400 mL/hr, Intravenous, EVERY 8 HOURS PRN, Headache, Mild Pain, 3 doses, Starting on Marian 03/25/22 at 0609, Until Tue03/26/22 at 0733, See Micromedex for renal dosing guidelines. Patient preference for lesser PRN pain meds may be honored when the patient requests a less strong medication, a lower dose, or a less intrusive route of administration when the lesser drug, dose and route have been ordered for the patient. This patient request must be documented in the MAR. $ New Bag/Syringe 03/25/2022 6:58 AM CDT 1,000 mg 400 mL/hr acetaminophen (Tylenol) suppository 650 mg 650 mg, Rectal, EVERY 6 HOURS PRN, Fever, Starting on Tue03/08/22 at 1445, Until Marian 03/11/22 at 0953, Patient preference for lesser PRN pain meds may be honored when the patient requests a less strong medication, a lower dose, or a less intrusive route of administration when the lesser drug, dose and route have been ordered for the patient. This patient request must be documented in the MAR. $ Given 03/10/2022 9:39 PM CDT 650 mg acetaminophen (Tylenol) suppository 650 mg 650 mg, Rectal, NOW, 1 dose, On Tue03/08/22 at 2315, Patient preference for lesser PRN pain meds may be honored when the patient requests a less strong medication, a lower dose, or a less intrusive route of administration when the lesser drug, dose and route have been ordered for the patient. This patient request must be documented in the MAR. $ Given 03/08/2022 11:59 PM CDT 650 mg acetaminophen (Tylenol) tablet 1,000 mg 1,000 mg, Oral, 3 TIMES DAILY, First dose (after last modification) on Tue03/15/22 at 2100, Until Discontinued, Patient preference for lesser PRN pain meds may be honored when the patient requests a less strong medication, a lower dose, or a less intrusive route of administration when the lesser drug, dose and route have been ordered for the patient. This patient request must be documented in the MAR. $ Given 03/17/2022 1:46 PM CDT 1,000 mg $ Given 03/17/2022 10:04 AM CDT 1,000 mg $ Given 03/16/2022 9:00 PM CDT 1,000 mg acetaminophen (Tylenol) tablet 650 mg 650 mg, Oral, EVERY 6 HOURS PRN, Fever, Mild Pain, Headache, Starting on Marian 03/11/22 at 0953, Until 03/15/22 at 1747, Patient preference for lesser PRN pain meds may be honored when the patient requests a less strong medication, a lower dose, or a less intrusive route of administration when the lesser drug, dose and route have been ordered for the patient. This patient request must be documented in the MAR. $ Given 03/15/2022 5:14 AM CDT 650 mg $ Given 03/12/2022 4:09 PM CDT 650 mg $ Given 03/12/2022 6:24 AM CDT 650 mg acetaminophen (Tylenol) tablet 650 mg 650 mg, Oral, 3 TIMES DAILY, First dose (after last modification) on Tue03/17/22 at 2100, Until Discontinued, Patient preference for lesser PRN pain meds may be honored when the patient requests a less strong medication, a lower dose, or a less intrusive route of administration when the lesser drug, dose and route have been ordered for the patient. This patient request must be documented in the MAR. $ Given 03/22/2022 9:13 AM CDT 650 m g $ Given 03/21/2022 8:53 PM CDT 650 mg $ Given 03/21/2022 2:51 PM CDT 650 mg acetaminophen (Tylenol) tablet [...] 4:32 PM CDT 650 mg G Tube amLODIPine (Norvasc) tablet 5 mg 5 mg, Oral, AT BEDTIME, First dose on Tue03/09/22 at 0030, Until Discontinued $ Given 03/21/2022 8:53 PM CDT 5 mg $ Given 03/20/2022 8:21 PM CDT 5 mg $ Given 03/19/2022 10:35 PM CDT 5 mg artificial tears ophthalmic solution 1 drop 1 drop, Each Eye, 3 TIMES DAILY PRN, Dry Eyes, Starting on Tue03/11/22 at 0953, Until Tue04/01/22 at 1428 aspirin chew tablet 81 mg 81 mg, Oral, DAILY, First dose on Tue03/09/22 at 0900, Until Discontinued $ Given 03/22/2022 9:13 AM CDT 81 mg $ Given 03/21/2022 8:00 AM CDT 81 mg $ Given 03/20/2022 10:05 AM CDT 81 mg aspirin chew tablet 81 mg 81 mg, Enteral Tube, DAILY, First dose (after last modification) on Tue03/26/22 at 0900, Until Discontinued $ Given 04/01/2022 9:52 AM CDT 81 mg G Tube $ Given 03/31/2022 9:57 AM CDT 81 mg G Tube $ Given 03/30/2022 9:13 AM CDT 81 mg G Tube atorvastatin (Lipitor) tablet 40 mg 40 mg, Oral, DAILY, First dose on Tue03/09/22 at 0900, Until Discontinued $ Given 03/22/2022 9:14 AM CDT 40 mg $ Given 03/21/2022 8:00 AM CDT 40 mg $ Given 03/20/2022 10:03 AM CDT 40 mg atorvastatin (Lipitor) tablet 40 mg 40 mg, Enteral Tube, DAILY, First dose (after last modification) on Tue03/26/22 at 0900, Until Discontinued $ Given 04/01/2022 9:53 AM CDT 40 mg G Tube $ Given 03/31/2022 9:57 AM CDT 40 mg G Tube $ Given 03/30/2022 9:14 AM CDT 40 mg G Tube barium (Varibar Thin) 40 % liquid SUSR 5 mL 5 mL, Oral, ONCE, 1 dose, On Tue03/22/22 at 1445 $ Given - Contrast 03/22/2022 2:22 PM CDT 5 mL barium (Varibar) 40 % paste PSTE Oral, ONCE, 1 dose, On Tue03/22/22 at 1445 $ Given - Contrast 03/22/2022 2:22 PM CDT 5 mL barium (Varibar) 40 % suspension Oral, ONCE, 1 dose, On Tue03/22/22 at 1445 $ Given - Contrast 03/22/2022 2:22 PM CDT 5 mL bisacodyl (Dulcolax) suppository 10 mg 10 mg, Rectal, DAILY, First dose on Tue03/24/22 at 0715, Until Discontinued $ Given 03/24/2022 8:06 AM CDT 10 mg bisacodyl (Dulcolax) suppository 10 mg 10 mg, Rectal, DAILY PRN, Constipation, Starting on Tue03/25/22 at 1845, Until Tue04/01/22 at 1428, Second-line PRN option for constipation ceFAZolin (Ancef) 2 g in 0.9% NaCl IV 50 mL IVPB 2 g, at 100 mL/hr, Intravenous, EVERY 8 HOURS, First dose on Tue03/18/22 at 1630, Until Discontinued, Indication for anti-infective therapy: Suspected infection, Site of anti-infective therapy: Blood $ New Bag/Syringe 03/24/2022 8:13 AM CDT 2 g 100 mL/hr Rate Change 03/24/2022 12:45 AM CDT 5 mL/hr $ New Bag/Syringe 03/24/2022 12:13 AM CDT 2 g 100 m L/hr ceFAZolin (Ancef) 2 g in 0.9% NaCl IV 50 mL IVPB 2 g, at 100 mL/hr, Intravenous, EVERY 8 HOURS, 4 doses, First dose (after last modification) on Tue03/24/22 at 1630, Last dose on Tue03/25/22 at 1630, Indication for anti-infective therapy: Suspected infection, Site of anti-infective therapy: Blood $ Admin. by Other Provider 03/25/2022 4:10 PM CDT 2 g 100 mL/hr $ New Bag/Syringe 03/25/2022 7:40 AM CDT 2 g 100 mL /hr $ New Bag/Syringe 03/24/2022 11:59 PM CDT 2 g 100 m L/hr cefTRIAXone (Rocephin) 2,000 mg in 0.9% NaCl IV 50 mL IVPB 2,000 mg, at 600 mL/hr, Intravenous, NOW, 1 dose, On Tue03/08/22 at 1445, Ceftriaxone can cause precipitation when administered with calcium-containing fluids, including LR. Flush lines with a compatible fluid, such as D5W or NS before and after ceftriaxone dose. Admin through separate lumens is acceptable. , Indication for anti-infective therapy: Suspected infection, Site of anti-infective therapy: Urine/Genitourinary $ New Bag/Syringe 03/08/2022 3:06 PM CDT 2,000 mg 600 mL/hr cefTRIAXone (Rocephin) 2,000 mg in 0.9% NaCl IV 50 mL IVPB 2,000 mg, at 100 mL/hr, Intravenous, EVERY 24 HOURS, First dose on Tue03/09/22 at 1245, Until Discontinued, Ceftriaxone can cause precipitation when administered with calcium-containing fluids, including LR. Flush lines with a compatible fluid, such as D5W or NS before and after ceftriaxone dose. Admin through separate lumens is acceptable. , Indication for anti-infective therapy: Suspected infection, Site of anti-infective therapy: Urine/Genitourinary $ New Bag/Syringe 03/18/2022 12:16 PM CDT 2,000 mg 100 mL/hr $ New Bag/Syringe 03/17/2022 12:45 PM CDT 2,000 mg 100 m L/hr $ New Bag/Syringe 03/16/2022 12:03 PM CDT 2,000 mg 100 m L/hr cloBAZam (Onfi) tablet 10 mg 10 mg, Oral, 2 TIMES DAILY, First dose on Tue03/09/22 at 0200, Until Discontinued $ Given 03/17/2022 10:04 AM CDT 10 mg $ Given 03/16/2022 9:00 PM CDT 10 mg $ Given 03/15/2022 8:59 PM CDT 10 mg cloBAZam (Onfi) tablet 10 mg 10 mg, Enteral Tube, 2 TIMES DAILY, First dose on Tue03/26/22 at 1100, Until Discontinued $ Given 04/01/2022 9:53 AM CDT 10 mg G Tube $ Given 03/31/2022 9:12 PM CDT 10 mg G Tube $ Given 03/31/2022 9:57 AM CDT 10 mg G Tube divalproex [address] (Depakote) tablet 1,000 mg 1,000 mg, Oral, 2 TIMES DAILY, First dose on Tue03/09/22 at 0030, Until Discontinued, Do not crush, chew, or cut in half. $ Given 03/09/2022 1:12 AM CDT 1,[address] (Depakote) tablet 1,000 mg 1,000 mg, Oral, 2 TIMES DAILY, 10 doses, First dose on Tue03/11/22 at 2100, Last dose on Tue03/16/22 at 0900, Do not crush, chew, or cut in half. $ Given 03/15/2022 8:59 PM CDT 1,000 mg $ Given 03/15/2022 9:35 AM CDT 1,000 mg $ Given 03/14/2022 8:49 PM CDT 1,000 mg divalproex ER 24hr (Depakote ER) tablet 1,000 mg 1,000 mg, Oral, 2 TIMES DAILY, First dose (after last reorder) on Tue03/10/22 at 2100, Until Discontinued, Do not crush, chew, or cut in half. $ Given 03/11/2022 9:18 AM CDT 1,000 mg $ Given 03/10/2022 9:42 PM CDT 1,000 mg divalproex sprinkle (Depakote Sprinkle) capsule 500 mg 500 mg, Oral, DAILY, First dose on Tue03/17/22 at 1300, Until Discontinued, Do not crush or chew sprinkle beads. $ Given 03/21/2022 2:40 PM CDT 500 mg $ Given 03/20/2022 2:02 PM CDT 500 mg $ Given 03/19/2022 2:01 PM CDT 500 mg divalproex sprinkle (Depakote Sprinkle) capsule 750 mg 750 mg, Oral, 2 TIMES DAILY, First dose on Tue03/16/22 at 1700, Until Discontinued, Do not crush or chew sprinkle beads. $ Given 03/22/2022 9:13 AM CDT 750 mg $ Given 03/21/2022 8:54 PM CDT 750 mg $ Given 03/21/2022 10:33 AM CDT 750 mg enoxaparin (Lovenox) injection 40 mg 40 [...] acid (Folvite) tablet 1 mg 1 mg, Oral, DAILY, First dose on Tue03/09/22 at 0900, Until Discontinued $ Given 03/22/2022 9:13 AM CDT 1 mg $ Given 03/21/2022 8:00 AM CDT 1 mg $ Given 03/20/2022 10:06 AM CDT 1 mg folic acid (Folvite) tablet 1 mg 1 mg, Enteral Tube, DAILY, First dose (after last modification) on Tue03/26/22 at 0900, Until Discontinued $ Given 04/01/2022 9:53 AM CDT 1 mg G Tube $ Given 03/31/2022 9:58 AM CDT 1 mg G Tube $ Given 03/30/2022 9:14 AM CDT 1 mg G Tube gadobutrol (Gadavist) injection Intravenous, CONTRAST ONCE, Starting on Tue03/15/22 at 0056, Until Tue03/17/22 at 0055 $ Given - Contrast 03/15/2022 12:57 AM CDT 6 mL heparin injection 5,000 Units 5,000 Units, Subcutaneous, 2 TIMES DAILY, First dose on Tue03/09/22 at 0030, Until Discontinued $ Given 03/10/2022 9:49 AM CDT 5,000 Units Abd Left Lower Quadrant $ Given 03/09/2022 9:52 PM CDT 5,000 Units A bd Right Lower Quadrant $ Given 03/09/2022 9:27 AM CDT 5,000 Units A bd Right Lower Quadrant heparin injection 5,000 Units 5,000 Units, Subcutaneous, 3 TIMES DAILY, First dose (after last modification) on Tue03/10/22 at 1400, Until Discontinued $ Given 03/14/2022 8:49 PM CDT 5,000 Units Abd Left Upper Quadrant $ Given 03/14/2022 2:00 PM CDT 5,000 Units A bdominal Tissue $ Given 03/14/2022 7:56 AM CDT 5,000 Units A bdominal Tissue heparin injection 5,000 Units 5,000 Units, Subcutaneous, 3 TIMES DAILY, First dose on Tue03/15/22 at 2100, Until Discontinued $ Given 03/24/2022 8:41 AM CDT 5,000 Units Abdominal Tissue $ Given 03/23/2022 10:24 PM CDT 5,000 Units Abd Left Lower Quadrant $ Given 03/23/2022 3:21 PM CDT 5,000 Units L eft Arm heparin injection 5,000 Units 5,000 Units, Subcutaneous, 3 TIMES DAILY, 1 dose, First dose (after last reorder) on Tue03/24/22 at 2100 $ Given 03/24/2022 8:01 PM CDT 5,000 Units Abd Left Upper Quadrant hydrALAZINE (Apresoline) injection 10 mg 10 mg, Intravenous, EVERY 6 HOURS PRN, SBP greater than 160 mmHg, Starting on Tue03/23/22 at 1407, Until Tue03/30/22 at 1835 $ Given 03/25/2022 7:36 AM CDT 10 mg iopamidol (Isovue 370) 76 % contrast Intravenous, CONTRAST ONCE, Starting on Tue03/08/22 at 1913, Until Tue03/10/22 at 1912 $ Given - Contrast 03/08/2022 9:51 PM CDT 100 mL lacosamide (Vimpat) injection 200 mg 200 mg, Intravenous, 2 TIMES DAILY, First dose on Tue03/09/22 at 2100, Until Discontinued, Doses up to 400 mg may be administered undiluted at less than 80 mg/min (400 mg over 5 min) $ Given 03/10/2022 9:49 AM CDT 200 mg $ Given 03/09/2022 10:47 PM CDT 200 mg lacosamide (Vimpat) injection 200 mg 200 mg, Intravenous, 2 TIMES DAILY, First dose on Tue03/17/22 at 2100, Until Discontinued, Doses up to 400 mg may be administered undiluted at less than 80 mg/min (400 mg over 5 min) $ Given 03/25/2022 8:24 PM CDT 200 mg $ Given 03/25/2022 8:13 AM CDT 200 mg $ Given 03/24/2022 8:01 PM CDT 200 mg lacosamide (Vimpat) tablet 200 mg 200 mg, Oral, 2 TIMES DAILY, First dose on Tue03/09/22 at 0030, Until Discontinued $ Given 03/09/2022 1:17 AM CDT 200 mg lacosamide (Vimpat) tablet 200 mg 200 mg, Oral, 2 TIMES DAILY, First dose on Tue03/10/22 at 2100, Until Discontinued $ Given 03/17/2022 10:05 AM CDT 200 mg $ Given 03/16/2022 9:00 PM CDT 200 mg $ Given 03/15/2022 8:59 PM CDT 200 mg lacosamide (Vimpat) tablet 200 mg 200 mg, Enteral Tube, 2 TIMES DAILY, First dose (after last modification) on Tue03/26/22 at 0900, Until Discontinued $ Given 04/01/2022 9:52 AM CDT 200 mg G Tub e $ Given 03/31/2022 9:13 PM CDT 200 mg G Tube $ Given 03/31/2022 9:57 AM CDT 200 mg G Tube lactated ringers infusion at 125 mL/hr, Intravenous, CONTINUOUS, Starting on Tue03/08/22 at 1445, Until Marian 03/11/22 at 0953 $ New Bag/Syringe 03/11/2022 7:32 AM CDT 125 mL/hr Restarted 03/10/2022 11:48 AM CDT 125 mL/hr Restarted 03/10/2022 11:07 AM CDT 125 mL/hr lactated ringers infusion at 75 mL/hr, Intravenous, CONTINUOUS, Starting on Tue03/13/22 at 1300, Until Tue03/15/22 at 1317 $ New Bag/Syringe 03/15/2022 5:24 AM CDT 75 mL/hr $ New Bag/Syringe 03/15/2022 2:29 AM CDT 75 mL/ hr $ New Bag/Syringe 03/14/2022 12:12 AM CDT 75 mL /hr lactated ringers IV bolus 2,040 mL (30 mL/kg ? 68 kg), at 2,040 mL/hr, Administer over 60 Minutes, BOLUS IV, 1 dose, On Tue03/08/22 at 1445, Monitor closely and notify physician for persistent hypotension during initial 60 minutes after crystalloid 30 ml/kg bolus stop time. (hypotension = SBP LESS than 90 mmHg or MAP LESS than 65 mmHG or decrease in SBP by more than 40 mmHg from last SBP considered normal for patient) $ New Bag/Syringe 03/08/2022 3:07 PM CDT 2,040 mL 2040 mL/hr levETIRAcetam (Keppra) 2,000 mg in 0.9% NaCl IV 270 mL IVPB 2,000 mg, at 540 mL/hr, Intravenous, EVERY 12 HOURS, First dose on Tue03/09/22 at 2100, Until Discontinued $ New Bag/Syringe 03/10/2022 10:32 AM CDT 2,000 mg 540 mL/hr $ New Bag/Syringe 03/09/2022 10:02 PM CDT 2,000 mg 540 m L/hr levETIRAcetam (Keppra) 2,000 mg in 0.9% NaCl IV 270 mL IVPB 2,000 mg, at 540 mL/hr, Intravenous, EVERY 12 HOURS, First dose on Tue03/17/22 at 2100, Until Discontinued $ New Bag/Syringe 03/25/2022 8:38 PM CDT 2,000 mg 540 mL/hr $ New Bag/Syringe 03/25/2022 8:34 AM CDT 2,000 mg 540 mL /hr Rate Change 03/24/2022 10:09 PM CDT 5 mL/hr levETIRAcetam (Keppra) tablet 2,000 mg 2,000 mg, Oral, EVERY 12 HOURS, First dose on Tue03/09/22 at 0030, Until Discontinued, Do not crush or chew because of TASTE only. $ Given 03/09/2022 1:04 AM CDT 2,000 mg levETIRAcetam (Keppra) tablet 2,000 mg 2,000 mg, Oral, 2 TIMES DAILY, First dose on Tue03/10/22 at 2100, Until Discontinued, Do not crush or chew because of TASTE only. $ Given 03/17/2022 10:05 AM CDT 2,000 mg $ Given 03/16/2022 9:00 PM CDT 2,000 mg $ Given 03/15/2022 8:59 PM CDT 2,000 mg levETIRAcetam (Keppra) tablet 2,000 mg 2,000 mg, Enteral Tube, 2 TIMES DAILY, First dose on Tue03/26/22 at 0900, Until Discontinued, Do not crush or chew because of TASTE only. $ Given 04/01/2022 9:53 AM CDT 2,000 m g G Tube $ Given 03/31/2022 9:12 PM CDT 2,000 mg G Tube $ Given 03/31/2022 9:57 AM CDT 2,000 mg G Tube LORazepam (Ativan) injection 0.5 mg 0.5 mg, Intravenous, 3 TIMES DAILY, First dose on Tue03/17/22 at 1715, Until Discontinued $ Given 03/26/2022 8:44 AM CDT 0.5 mg $ Given 03/25/2022 8:34 PM CDT 0.5 mg $ Given 03/25/2022 2:27 PM CDT 0.5 mg LORazepam (Ativan) tablet 1 mg 1 mg, Oral, ONCE PRN, Anxiety, 1 dose, Starting on 03/13/22 at 2216, Until 03/14/22 at 2337 $ Given 03/14/2022 11:37 PM CDT 1 mg magnesium sulfate 2 g in 50 mL bolus 2 g, at 25 mL/hr, Administer over 120 Minutes, Intravenous, ONCE, 1 dose, On Tue03/10/22 at 1345, Infuse at 1 gm/hr $ New Bag/Syringe 03/10/2022 4:25 PM CDT 2 g 25 mL/hr magnesium sulfate 2 g in 50 mL bolus 2 g, at 25 mL/hr, Administer over 120 Minutes, Intravenous, ONCE, 1 dose, On 03/14/22 at 0730, Infuse at 1 gm/hr Restarted 03/14/2022 8:50 AM CDT 25 mL/hr $ New Bag/Syringe 03/14/2022 7:59 AM CDT 2 g 25 mL/ hr metroNIDAZOLE (Flagyl) tablet 500 mg 500 mg, Oral, EVERY 8 HOURS, First dose on Marian 03/11/22 at 2200, Until Discontinued, May take with food or milk., Indication for anti-infective therapy: Documented infection, Site of anti-infective therapy: Blood $ Given 03/18/2022 3:02 PM CDT 500 mg $ Given 03/18/2022 6:22 AM CDT 500 mg $ Given 03/17/2022 10:32 PM CDT 500 mg oxyCODONE (Roxicodone) oral solution 2.5 mg 2.5 [...] Intravenous, INTRA-PROCEDURE MULTIPLE, 6 doses, Starting on Marian 03/11/22 at 1320, Until Marian 04/01/22 at 1428, For Echo Procedure - Per Protocol Give slowly Shake well before using. polyethylene glycol 3350 (Miralax) packet 17 g 17 g, Oral, DAILY, First dose (after last modification) on Tue03/15/22 at 1830, Until Discontinued, Mix in 8 ounces of water, juice, soda, coffee or tea prior to administration $ Given 03/22/2022 9:15 AM CDT 17 g $ Given 03/21/2022 10:57 AM CDT 17 g $ Given 03/20/2022 10:03 AM CDT 17 g polyethylene glycol 3350 (Miralax) packet 17 g 17 g, Enteral Tube, DAILY PRN, Constipation, Starting on Tue03/25/22 at 1845, Until Tue04/01/22 at 1428, First-line PRN option for constipation Mix in 8 ounces of water, juice, soda, coffee or tea prior to administration potassium chloride 40 mEq in 270 mL bolus 40 mEq, at 67.5 mL/hr, Administer over 4 Hours, Intravenous, ONCE, 1 dose, On Tue03/11/22 at 1200 $ New Bag/Syringe 03/11/2022 12:49 PM CDT 40 mEq 67.5 mL/hr potassium chloride ER (Klor-Con M) tablet 40 mEq 40 mEq, Oral, ONCE, 1 dose, On Tue03/12/22 at 0745, Do not crush or chew. $ Given 03/12/2022 10:15 AM CDT 40 mEq PPN - PERIPHERAL LINE - ADULT - CLINIMIX at 83.79 mL/hr, Intravenous (Continuous Infusion), TPN - 0, Starting on Tue03/22/22 at 2200, Until Tue03/23/22 at 2159, May be infused through a peripheral or central line HIGH ALERT MEDICATION Current Rate 03/23/2022 6:30 AM CDT 83.79 mL/hr $ New Bag/Syringe 03/22/2022 10:45 PM CDT 83.79 mL/hr PPN - PERIPHERAL LINE - ADULT - CLINIMIX at 94.21 mL/hr, Intravenous (Continuous Infusion), TPN - 0, Starting on Tue03/23/22 at 2200, Until Tue03/24/22 at 2159, May be infused through a peripheral or central line HIGH ALERT MEDICATION Restarted 03/24/2022 8:03 AM CDT 94.21 mL/hr Current Rate 03/24/2022 6:48 AM CDT 94.21 mL/hr $ New Bag/Syringe 03/23/2022 10:21 PM CDT 94.21 mL/hr PPN - PERIPHERAL LINE - ADULT at 83 mL/hr, Intravenous (Continuous Infusion), TPN - 2200, Starting on Tue03/24/22 at 2200, Until Tue03/25/22 at 2159, HIGH ALERT MEDICATION, Total Kcalories: 1,528, Protein in grams: 65, Dextrose Kcalories: 408, Lipid Kcalories: 860, Salt ratio (chloride:acetate): 1:1, Volume: 2000 mL Current Rate 03/25/2022 2:25 PM CDT 83 mL/hr Current Rate 03/25/2022 12:39 PM CDT 83 mL/hr Current Rate 03/25/2022 7:33 AM CDT 83 mL/hr sodium - potassium phosphates (K Phos Neutral) tablet 2 tablet 2 tablet, Oral, ONCE, 1 dose, On Tue03/10/22 at 1345, Contains Phos 8 mmol, K+ 1.1 mEq, Na 13 mEq per tablet $ Given 03/10/2022 3:22 PM CDT 2 tablets sodium - potassium phosphates (K Phos Neutral) tablet 2 tablet 2 tablet, Oral, ONCE, 1 dose, On Tue03/14/22 at 0730, Contains Phos 8 mmol, K+ 1.1 mEq, Na 13 mEq per tablet $ Given 03/14/2022 7:57 AM CDT 2 tablets tamsulosin (Flomax) capsule 0.4 mg 0.4 mg, [...] AM CDT 0.4 mg thiamine (Vitamin B-1) injection 100 mg 100 mg, Intravenous, DAILY, First dose on Tue03/25/22 at 0900, Until Discontinued $ Given 03/25/2022 8:13 AM CDT 100 mg thiamine (Vitamin B-1) tablet 100 mg 100 mg, Oral, DAILY, First dose on Tue03/09/22 at 0900, Until Discontinued $ Given 03/22/2022 9:14 AM CDT 100 mg $ Given 03/21/2022 8:00 AM CDT 100 mg $ Given 03/20/2022 10:03 AM CDT 100 mg thiamine (Vitamin B-1) tablet 100 mg 100 mg, Enteral Tube, DAILY, First dose on Tue03/26/22 at 0900, Until Discontinued $ Given 04/01/2022 9:53 AM CDT 100 mg G Tub e $ Given 03/31/2022 9:57 AM CDT 100 mg G Tube $ Given 03/30/2022 9:13 AM CDT 100 mg G Tube valproate (Depacon) 1,000 mg in 0.9% NaCl IV 60 mL IVPB 1,000 mg, at 120 mL/hr, Intravenous, DAILY, 1 dose, First dose on Tue03/23/22 at 1600 $ New Bag/Syringe 03/23/2022 4:27 PM CDT 1,000 mg 120 mL/hr valproate (Depacon) 333 mg in 0.9% NaCl IV 53.3 mL IVPB 333 mg, at 106.6 mL/hr, Intravenous, EVERY 6 HOURS, First dose on Tue03/09/22 at 1700, Until Discontinued $ New Bag/Syringe 03/10/2022 1:23 PM CDT 333 mg 106.6 mL/hr $ New Bag/Syringe 03/10/2022 6:04 AM CDT 333 mg 106.6 mL/hr Rate Change 03/10/2022 1:37 AM CDT 5 mL/hr valproate (Depacon) 500 mg in 0.9% NaCl IV 55 mL IVPB 500 mg, at 110 mL/hr, Intravenous, EVERY 6 HOURS, First dose (after last modification) on Tue03/23/22 at 0000, Until Discontinued $ New Bag/Syringe 03/26/2022 5:36 AM CDT 500 mg 110 mL/hr $ New Bag/Syringe 03/26/2022 12:33 AM CDT 500 mg 110 m L/hr $ New Bag/Syringe 03/25/2022 6:36 PM CDT 500 mg 110 mL /hr valproic acid (Depakene) solution 500 mg 500 mg, Enteral Tube, 4 TIMES DAILY, First dose (after last modification) on Tue03/26/22 at 1100, Until Discontinued $ Given 04/01/2022 9:53 AM CDT 500 mg G Tub e $ Given 04/01/2022 4:31 AM CDT 500 mg G Tube $ Given 03/31/2022 9:11 PM CDT 500 mg G Tube vancomycin (Vancocin) 1,000 mg in 0.9% NaCl IV 250 mL IVPB 1,000 mg, at 250 mL/hr, Intravenous, EVERY 8 HOURS, First dose on Tue03/10/22 at 2000, Until Discontinued, Indication for anti-infective therapy: Documented infection, Site of anti-infective therapy: Lower Respiratory $ New Bag/Syringe 03/11/2022 11:52 PM CDT 1,000 mg 250 mL/hr $ New Bag/Syringe 03/11/2022 4:19 PM CDT 1,000 mg 250 mL /hr $ New Bag/Syringe 03/11/2022 5:02 AM CDT 1,000 mg 250 mL /hr vancomycin (Vancocin) 1,250 mg in 250 mL NaCl IVPB Premix 1,250 mg, at 200 mL/hr, Intravenous, EVERY 12 HOURS, First dose on Tue03/09/22 at 1200, Until Discontinued, Indication for anti-infective therapy: Suspected infection, Site of anti-infective therapy: Lower Respiratory $ New Bag/Syringe 03/10/2022 11:50 AM CDT 1,250 mg 200 mL/hr Rate Change 03/10/2022 12:26 AM CDT 5 mL/hr $ New Bag/Syringe 03/09/2022 11:11 PM CDT 1,250 mg 200 m L/hr vancomycin (Vancocin) 1,250 mg in 250 mL NaCl IVPB Premix 1,250 mg, at 200 mL/hr, Intravenous, EVERY 8 HOURS, First dose on Tue03/12/22 at 0800, Until Discontinued, Indication for anti-infective therapy: Suspected infection, Site of anti-infective therapy: Lower Respiratory $ New Bag/Syringe 03/16/2022 6:13 AM CDT 1,250 mg 200 mL/hr $ New Bag/Syringe 03/16/2022 1:50 AM CDT 1,250 mg 200 mL /hr $ New Bag/Syringe 03/15/2022 3:33 PM CDT 1,250 mg 200 mL /hr vancomycin (Vancocin) 1,750 mg in 500 mL NaCl IVPB 1,750 mg, at 285.71 mL/hr, Intravenous, ONCE, 1 dose, On Tue03/09/22 at 0000, Indication for anti-infective therapy: Suspected infection, Site of anti-infective therapy: Lower Respiratory $ New Bag/Syringe 03/08/2022 11:59 PM CDT 1,750 mg 285.71 mL/hr documented in this encounter Active and [...] RN)[phone] ($ Given - Provider: Denisse Conley RN)211 ($ Given - Provider: Ankur Shen RN) [...] Until Discontinued 951 ($ Given - Provider: Nohmei Norman RN)2102 ($ Given - Provider: Angelita [...] ($ Given - Provider: Angelita Jarrett RN) 0958 ($ Given - Provider: Denisse [...] ($ Given - Provider: Angelita Jarrett RN) 956 ($ Given - Provider: Denisse Conley RN)[phone] [...] ($ Given - Provider: Angelita Jarrett RN) 956 ($ Given - Provider: Denisse Conley RN)[phone] [...] via the FT Do not crush, chew 14 ($ Given - Provider: Nano Pelaez RN) [...] ($ Given - Provider: Nano Pelaez RN) 0348 ($ Given - Provider: Angelita Jarertt RN) artificial tears ophthalmic solution 1 drop 1 drop, Each Eye, 3 TIMES DAILY PRN, Dry Eyes, Starting on Tue03/11/22 at 0953, Until Tue04/01/22 at 1428 bisacodyl (Dulcolax) suppository 10 mg [...] patient request must be documented in the JUL. 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
--- OUTSIDE RECORDS SUMMARY | 2024-06-08 05:40 | XMS_ITS | Encounter Summary ---
Author Organization [facility] Health Address [address] [place] [address] Care Team Providers Care Design Engineering Manager Name Role Phone Elizabeth Sullivan RN Unavailable [phone] Joyce Luevano TRAFFIC SUPERINTENDENT-STATISTICAL CLERK Primary Care Provider [phone] Reason for Visit * Auth/Cert Specialty Diagnoses / Procedures Referred By Contac t Referred To Contact Procedures CHRONIC VIRAL HEPATITIS LIVER FIBROSIS Referral ID Status Reason Start Date Expiration Date Visits Re quested Visits Authorized [id number] 1 1 Encounter Details Date Type Department Care Team (Late st Contact Info) Description 03/15/2022 9:46 AM CDT Anesthesia Event [facility] [address] [place] [id number] Ariela Conde MD [address] [place] [address] Uli Acosta, DO [address] [facility] [place]esthes[place] [phone] Anesthesia Record Procedure Summary Procedure Name Responsible Anesthesiologist Anesthesia Start Time Anesthesia Stop Time LEFT BKA POSS AKA (Left) Ariela Conde MD 03/15/22 0946 03/15/22 1116 Events Date Time Event Comment 03/15/2022 0830 0946 An Start 0946 Pt In Room 0952 An Start Data 0954 PT Reassessment 0954 Induction 0957 An Intubation 1003 PIV Placement 1005 Anes Ready 1009 Time Out Anesthesia part icipated in timeout at the time documented in the record by nursing 1009 Proc Start 1056 Proc Stop 1056 An Emergence 1112 Extubation 1113 an stop data 1113 Pt out of Room 1113 ANPTO2 1116 An Stop Meds Name Total fentaNYL 100 mcg/2ml injection 100 mcg lidocaine PF 2% 100 mg propofol 200mg/20mL injection 100 mg rocuronium 50 mg/5 mL injection 40 mg phenylephrine 100 mcg/mL syringe 700 mcg ondansetron 4mg/2mL injection 4 mg sugammadex 200 mg/2mL injection 200 mg ketorolac 30 mg/mL injection 30 mg NS (0.9% NaCl) 700 mL LR (Lactated ringers) 450 mL * Agents Name Insp. N2O Exp. Sevoflurane Exp. N2O O2 Air Insp. Sevoflurane N2O * Blood No blood administrations on file. Lines, Drains, and Airways Type Details Placement Removal Other Wound 03/08/22; Yes; Left; Foot; 04/01/22; 1921; Resolved date unknown, not present on admission 03/08/22 0000 by Cami Robin, ALFRED 04/01/22 1922 by Generic, Auto Release RETIRED Condom Urinary Catheter 03/08/22; 1426; Small; Well; 03/24/22; 1020; Accidental Removal 03/08/22 1426 by Cami Robin, ALFRED 03/24/22 1020 by Snow Ojeda RN Peripheral IV Date: 03/09/22; Time : 0359; Orientation: Right 03/09/22 0359 by Yari Marie RN 03/21/22 0000 by Fior Menard Peripheral IV Date: 03/13/22; Time : 0045; Orientation: Anterior, Left, Upper; Placed By: David Geiger; Tolerance: Well 03/13/22 0045 by Cony Estrella, ALFRED 03/21/22 0000 by Fior Menard ETT Date: 03/15/22; Time : 0957; Placed By: Loretta Coronado MD; Vent: easy with oral airway mask; Induction: Standard IV; Blade Type: King; Blade Size: 4; Laryngoscopy View: Grade 3 (epiglottis); Intubation Adjuncts: Stylet; Tube: Endotracheal Tube; Placement: Oral; Tube Type: Cuffed-inflated; Tube Size(mm): 8 MM; Depth of Insertion: 23 CM; Measured From: teeth; Attempts: 1; Cuff Infated: Air; Cuff Vol(mL): 12 mL; Verified By: Direct visualization, Bilateral breath sounds, Chest Auscultation, CO2 Monitor 03/15/22 0957 by Loretta Coronado MD 03/15/22 1112 by Loretta Coronado MD Procedural Site (Incision) 03/15/22; 1018; Left; Leg; 04/01/22; 192103/15/22 1018 by Angela Cortes RN 04/01/221921 by Generic, Auto Release Peripheral IV Date: 03/15/22; Time : 1100; Orientation: Left; Placed By: Ariela Conde MD; Tolerance: General Anesthesia 03/15/22 1100 by Izzy Bourne RN 03/16/22 1000 by Sondra Jo RN documented in this encounter Social History Tobacco [...] as of this encounter Progress Notes * Ariela Conde MD - 03/15/2022 1:37 PM CDT ANESTHESIA POSTOP EVALUATION NOTE Procedure: LEFT BKA POSS AKA (Left ) Bi Tabor is a 62 year old male Patient Vitals for the past 6 hrs: BP Temp Pulse Resp SpO2 Pain Rating Score #1 Pain Scale/Observation Pulse - (SPO2/Cuff) 03/15/22 0841 -- 98.1 ??F (36.7 ??C) -- -- -- -- -- -- 03/15/22 0922 -- -- -- -- -- 0 N -- 03/15/22 0925 159/93 -- 92 19 94 % -- -- 93 bpm 03/15/22 1115 111/74 97.4 ??F (36.3 ??C) 82 16 98 % -- B -- 03/15/22 1120 103/68 -- 80 19 99 % -- -- -- 03/15/22 1125 99/67 -- 81 16 100 % -- B -- 03/15/22 1130 103/65 -- 81 16 100 % -- -- -- 03/15/22 1135 104/68 -- 78 14 100 % -- N -- 03/15/22 1140 87/62 -- 80 15 100 % -- -- -- 03/15/22 1145 95/63 -- 78 15 100 % -- B -- 03/15/22 1150 95/65 -- 80 17 95 % 0 B -- 03/15/22 1155 87/60 -- 82 17 94 % -- -- -- 03/15/22 1200 86/57 -- 82 17 93 % 0 B -- 03/15/22 1205 86/57 -- 80 14 93 % -- -- -- 03/15/22 1210 98/65 -- 78 11 93 % 0 B -- 03/15/22 1215 92/60 -- 77 16 94 % -- -- -- Anesthesia Type: general ETT Pre-op Diagnosis Codes: * Dry gangrene (CMS/HCC) [I96] Mental Status: awake, alert and oriented Respiratory Function: natural Cardiac Function: stable Postop Pain: acceptable to the patient Postop Hydration: adequate Postop Nausea: none Assessment: no apparent anesthetic complications, patient tolerated procedure well and no evidence of recall Patient Disposition: Release from Anesthesia Care COMPLICATIONS: No complications documented. * Ariela Conde MD - 03/15/2022 9:49 AM CDT ANESTHESIA PREOPERATIVE EVALUATION NOTE Procedure: LEFT BKA POSS AKA (Left ) NPO status: Since Midnight (03/15/2022 8:54 AM) Vitals: Patient Vitals for the past 6 hrs: BP Temp Pulse Resp SpO2 Pain Rating Score #1 03/15/22 0925 159/93 -- 92 19 94 % -- 03/15/22 0922 -- -- -- -- -- 0 03/15/22 0841 -- 98.1 ??F (36.7 ??C) -- -- -- -- 03/15/22 0539 -- -- -- -- -- 0 03/15/22 0514 -- -- -- -- -- 3 03/15/22 0402 159/99 99 ??F (37.2 ??C) 107 18 97 % -- LMP: No LMP for male patient. OB Status: unknown ANESTHESIA PRE-EVALUATION NOTE History of Present Illness: HPI: This is a 62 year old male with pmh of htn, CVA, HLD, alzheimer, and epilepsy brought to hospital after patient's family noted that he has worsening mental status at long-term. Patient was initially consulted to the vascular surgery service due to Left foot 2nd and 3rd digit dry gangrene. Plan was to follow up in clinic one week after discharge due to patient being unfit for surgical intervention. Patient was re consulted to the vascular surgery service for re-evaluation of LLE wounds as possible cause of patient's bacteremia. Physical Exam: Airway/Mallampati Score: II Mouth Opening Distance: 3 fingerwidths Neck ROM: limited TM Distance: > 3 FB Teeth: poor dentition Heart: normal - S1 S2 Lungs: clear to ausculation bilaterally Other Findings: Reviewed available information , notes and relevant labs, diagnostic test results. ANESTHESIA PLAN ASA Score: 4 NPO Status: No solids since midnight and No liquids within 2 hours Anesthesia Plan: general and general ETT Planned Induction: intravenous Planned Postop Destination: PACU Anesthetic plan was discussed with: patient Anesthetic Plan discussion was: Consented Use of blood products were discussed with: patient Use of blood product discussion was: Consented The patient's procedural Anesthetic Plan was discussed with the microbiology lab assistant, anesthesiologist, DIAMOND POWDER MIXER and resident. Overall additional findings/comments: Attending Anesthesiologist Attestation I have reviewed the chart I have reviewed medications I have interviewed and examined the patient I agree with the documentation and have dicussed the anesthesia plan w/ the Resident, AA I discussed risks of anesthesia including, chipped or missing tooth, sore throat, and, although rare, possible LA, CVA, cardiopulmonary event, thromboembolic events, prolonged mechanical ventilation and . Pt agrees with anesthetic plan, questions answered. Patient was seen prior to patient whee ling back to procedural area or operating room. Ariela Conde MD . BMI, Height, Weight Tobacco History Estimated body mass index is 20.34 kg/m?? as calculated from the following: Height as of this encounter: 1.829 m (6'). Weight as of this encounter: 68 kg (150 lb). Social History Tobacco Use Smoking Status Former Smoker ??? Packs/day: 1.00 ??? Years: 15.00 ??? Pack years: 15.00 Smokeless Tobacco Never Used Alcohol History Drug History Social History Substance and Sexual Activity Alcohol Use No Comment: last drink 2015 Social History Substance and Sexual Activity Drug Use No Comment: occasional Outpatient Medications: Inpatient Medications: No outpatient medications have been marked as taking for the 03/08/22 encounter (Hospital Encounter). Current Facility-Administered Medications Medication Dose Last Admin ??? 0.9% NaCl 3 mL 3 mL at 03/15/22 0514 And ??? 0.9% NaCl 1-10 mL ??? acetaminophen 650 mg 650 mg at 03/15/22 0514 ??? amLODIPine 5 mg 5 mg at 03/14/229 ??? artificial tears 1 drop ??? aspirin 81 mg 81 mg at 03/14/22 0756 ??? atorvastatin 40 mg 40 mg at 03/14/22 0757 ??? cefTRIAXone 2,000 mg Stopped at 03/14/22 1431 ??? cloBAZam 10 mg 10 mg at 03/15/22 0938 ??? divalproex DR 1,000 mg 1,000 mg at 03/15/22 0935 ??? folic acid 1 mg 1 mg at 03/14/22 0757 ??? gadobutrol 6 mL at 03/15/22 0057 ??? lacosamide 200 mg 200 mg at 03/15/22 0933 ??? lactated ringers New Bag at 03/15/22 0524 ??? levETIRAcetam 2,000 mg 2,000 mg at 03/15/22 0827 ??? metroNIDAZOLE 500 mg 500 mg at 03/15/22 0514 ??? perflutren lipid microsphere 0.5 mL ??? polyethylene glycol 3350 17 g ??? tamsulosin 0.4 mg 0.4 mg at 03/14/22 0757 ??? thiamine 100 mg 100 mg at 03/14/22 0757 ??? vancomycin 1,250 mg 1,250 mg at 03/15/22 0641 ??? vancomycin (VANCOCIN) IV dose per pharmacy Allergies: Allergies Allergen Reactions ??? Clonazepam Psychiatric [...] following cerebral infarction affecting right non-dominant side ([facility]) 05/25/2019 Priority: High ??? Alzheimer's disease with early onset ([facility]) 05/17/2019 Priority: High ??? Paroxysmal tachycardia, unspecified ([facility]) 05/16/2019 Priority: High ??? Alcohol abuse, uncomplicated 08/13/2015 Priority: High ??? Benign neoplasm of prostate 06/26/2015 Priority: High ??? Other specified rheumatoid arthritis, unspecified site ([facility]) 06/26/2015 Priority: High ??? Syncope and collapse 06/26/2015 Priority: High ??? Bacteremia 03/11/2022 Priority: Not Prioritized ??? Pneumonia 03/11/2022 Priority: Not Prioritized ??? Ulcer of left foot ([facility]) 03/11/2022 Priority: Not Prioritized ??? PAD (peripheral artery disease) ([facility]) 03/11/2022 Priority: Not Prioritized ??? Protein calorie malnutrition ([facility]) 03/11/2022 Priority: Not Prioritized ??? Sepsis without acute organ dysfunction ([facility]) 03/08/2022 Priority: Not Prioritized ??? Status epilepticus ([facility]) 12/30/2021 Priority: Not Prioritized ??? Acute encephalopathy 12/30/2021 Priority: Not Prioritized ??? Seizures ([facility]) 08/13/2020 Priority: Not Prioritized ??? Therapeutic procedure Priority: Not Prioritized ??? Cerebrovascular accident ([facility]) 06/13/2019 Priority: Not Prioritized ??? Insomnia 06/13/2019 Priority: Not Prioritized ??? Low back pain 06/13/2019 Priority: Not Prioritized ??? Osteoporosis 11/22/2018 Priority: Not Prioritized ??? Seizure ([facility]) 10/13/2017 Priority: Not Prioritized ??? Hypertension 07/24/2015 Priority: Not Prioritized ??? Hyperlipidemia 04/14/2015 Priority: Not Prioritized Last Assessment & Plan: Continue home meds and monitor ??? 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 CVA (cerebral vascular accident) ([facility]) ??? HTN (hypertension) ??? Seizure ([facility]) Surgical History: No past surgical history on file. COMPUTER TECHNICAL SUPPORT SPECIALIST Status: No LMP for male patient. unknown OB History No obstetric history on file. Covid Vaccine: Lab Results: Recent Labs Component Name 03/08/222137 SARSCOV2 Not detected Recent Labs Base Name 03/13/22 2300 [id number] 134* SPECIMENTYPE Cap Fingerstick Recent Labs Component Name 03/14/222202 WBC 10.1 RBC 3.54* HCT 33.4* HGB 11.4* PLTCOUNT 295 MCV 94.4 MCH 32.2 MCHC 34.1 MPV 11.3 Recent Labs Component Name 03/14/222200 ABORH O POS ABSCG NEG Recent Labs Component Name 03/11/22 1329 BLOODU Negative WBCU 0-5 NITRITE Negative PROTEINU Negative Recent Labs Component Name 03/14/222202 POTASSIUM 3.8 CALCIUM 9.1 CO2 28 GLUCOSE 108 BUN 9 CREATININE 0.52* Recent Labs Component Name 03/14/222202 MAGNESIUM 1.8 Recent Labs Component Name 03/14/222202 PHOS 2.3* Recent Labs Component Name 03/11/22 1059 PH 7.47* PO2 80 PCO2 41 BE 5.6* Recent Labs Component Name 03/11/22 1059 PT 15.4* INR 1.2 Recent Labs Result Component Current Result Troponin I 0.016 (03/08/2022) Recent Labs Result Component Current Result Alkaline Phosphatase 73 (03/14/2022) ALT 23 (03/14/2022) Anion Gap 12 (03/14/2022) AST 35 (H) (03/14/2022) eGFR by CKD-EPI >90 (03/14/2022) documented in this encounter Procedure Notes * Loretta Coronado MD - 03/15/2022 10:28 AM CDTAssociated Order(s): ETT Placement Endotracheal Tube Placement: Patient Location: OR. Intubation Event Date/Time: 03/15/2022 9:57 AM Procedure: intubation (72022). Procedure Section: Sedation: under general anesthesia. Indications for Airway Management: anesthesia Induction: standard IV Patient Position: sniffing Mask Ventilation: easy with oral airway. Blade Type: King Blade Size: 4 Laryngoscopy View: grade 3 (epiglottis) Intubation Adjuncts: stylet Tube: endotracheal tube Placement: oral Tube type: cuff - inflated Tube Size (MM): 8 Depth of Insertion (CM): 23 Measured From: teeth Cuff volume (mL): 12 Cuff Inflated With: air Number of Attempts: 1. Placement Verified By: direct visualization, bilateral breath sounds, chest auscultation and CO2 monitor Tube secured with: adhesive tape. Dentition unchanged? Yes Difficult Airway? No. Procedure Start Time: 03/15/2022 9:57 AM. Staff Section Anesthesia Provider: Loretta Coronado MD, Performed the procedure Provider #1: Ariela Conde MD. documented in this encounter Miscellaneous Notes * Anesthesia Transfer of Care - May Nelson MD - 03/15/2022 11:16 AM CDT ANESTHESIA TRANSFER OF CARE NOTE Today's Date: 03/15/2022 Date of : 1960 Patient: Bi Tabor Procedure(s): LEFT BKA POSS AKA Surgeon(s): Primary: Anna Membreno MD Resident - Assisting: Brian Carmona MD Preop Diagnosis: Pre-op Diagnois: * Dry gangrene (CMS/HCC) [I96] Pre-op Meds (From admission, onward) Start Stop Status Route Frequency Ordered 03/08/22 1435 0.9% NaCl injection 1-10 mL And Linked Group Details -- Dispensed IK PRN 03/08/22 1437 03/08/22 1515 0.9% NaCl injection 3 mL And Linked Group Details -- Dispensed IK EVERY 8 HOURS 03/08/22 1437 03/11/22 0953 acetaminophen (Tylenol) tablet 650 mg -- Dispensed PO EVERY 6 HOURS PRN 03/11/22 0953 03/09/22 0030 amLODIPine (Norvasc) tablet 5 mg Note to Pharmacy: OP sig: Take 1 (one) tablet by mouth at bedtime -- Dispensed PO AT BEDTIME 03/08/22 5959 03/11/22 0953 artificial tears ophthalmic solution 1 drop -- Dispensed BOTH EYES 3 TIMES DAILY PRN 03/11/22 0953 03/09/22 0900 aspirin chew tablet 81 mg Note to Pharmacy: OP sig: Take 1 (one) tablet by mouth once daily -- Dispensed PO DAILY 03/08/22235803/09/22 09 atorvastatin (Lipitor) tablet 40 mg Note to Pharmacy: OP sig: Take 1 (one) tablet by mouth once daily -- Dispensed PO DAILY 03/08/22235803/09/22 1245 cefTRIAXone (Rocephin) 2,000 mg in 0.9% NaCl IV 50 mL IVPB -- Dispensed IV EVERY 24 HOURS 03/08/22 1437 03/09/22 0200 cloBAZam (Onfi) tablet 10 mg Note to Pharmacy: OP sig: Take 1 (one) tablet by mouth 2 times daily -- Dispensed PO 2 TIMES DAILY 03/08/22235803/11/[address] (Depakote) tablet 1,000 mg -- Dispensed PO 2 TIMES DAILY 03/11/22 0959 03/09/22 09 folic acid (Folvite) tablet 1 mg Note to Pharmacy: OP sig: Take 1 (one) tablet by mouth once daily -- Dispensed PO DAILY 03/08/22235803/15/22 005 gadobutrol (Gadavist) injection 03/17 005 Dispensed IV CONTRAST ONCE 03/15/22 0057 03/10/22 2100 lacosamide (Vimpat) tablet 200 mg -- Dispensed PO 2 TIMES DAILY 03/10/22 1331 03/13/22 1300 lactated ringers infusion -- Dispensed IV CONTINUOUS 03/13/22 1222 03/10/22 2100 levETIRAcetam (Keppra) tablet 2,000 mg -- Dispensed PO 2 TIMES DAILY 03/10/22 1331 03/13/22 2216 LORazepam (Ativan) tablet 1 mg 03/147 Completed PO ONCE PRN 03/13/22 2216 03/11/22 2200 metroNIDAZOLE (Flagyl) tablet 500 mg -- Dispensed PO EVERY 8 HOURS 03/11/22 21003/11/22 1320 perflutren lipid microsphere (Definity) injection 0.5 mL -- Verified IV INTRA-PROCEDURE MULTIPLE 03/11/22 1321 10/13/22 0953 polyethylene glycol 3350 (Miralax) packet 17 g -- Verified PO DAILY PRN 03/11/2295203/09/22899 tamsulosin (Flomax) capsule 0.4 mg Note to Pharmacy: OP sig: Take 1 (one) capsule by mouth once daily At the same time every day aftera meal. -- Dispensed PO DAILY 03/08/22235803/09/22899 thiamine (Vitamin B-1) tablet 100 mg Note to Pharmacy: OP sig: Take 1 (one) tablet by mouth once daily -- Dispensed PO DAILY 03/08/22235803/12/22799 vancomycin (Vancocin) 1,250 mg in 250 mL NaCl IVPB Premix -- Dispensed IV EVERY 8 HOURS 03/12/2220003/08/222314 vancomycin (Vancocin) IV dose per pharmacy -- Verified XX DIRECTED 03/08/222314 Post-op Diagnosis: * Dry gangrene (CMS/HCC) [I96] . Allergies Allergen Reactions ??? Clonazepam Psychiatric hallucinations Vitals: Patient Vitals for the past 3 hrs: BP Temp Pulse Resp SpO2 Pain Rating Score #1 03/15/22924 159/93 -- 92 19 94 % -- 03/15/22921 -- -- -- -- -- 0 03/15/22840 -- 98.1 ??F (36.7 ??C) -- -- -- -- Lines, Drains, and Airways Type Details Placement Removal Peripheral IV Date: 03/09/22; Time: 035; Orientation: Right; Location: Ankle; Gauge: 18 Gauge 03/09/22358 by Yari Marie RN Peripheral IV Date: 03/13/22; Time: 44; Orientation: Anterior, Left, Upper; Location: Arm; PlacedBy: David Geiger; Gauge: 22 Gauge ; Locals: None; Tolerance: Well 03/13/2244 by Cony Estrella,ALFRED ETT Date: 03/15/22; Time: 09; Placed By: Loretta Coronado MD; Vent: easy with oral airway mask; Induction: Standard IV; Blade Type: King; Blade Size: 4; Laryngoscopy View: Grade 3 (epiglottis); Intubation Adjuncts: Stylet; Tube: Endotracheal Tube; Placement: Oral; Tube Type: Cuffed-inflated; Tube Size(mm): 8 MM; Depth of Insertion: 23 CM; Measured From: teeth; Attempts: 1; Cuff Infated: Air;Cuff Vol(mL): 12 mL; Verified By: Direct visualization, Bilateral breath sounds, Chest Auscultation, CO2 Monitor 03/15/22 0957 by Loretta Coronado MD 03/15/22 1112 by Loretta Coronado MD Peripheral IV Orientation: Left; Location: Ext Jugular; Placed By: Ariela Conde MD; Gauge: 18 Gauge; Locals: None; Tolerance: General Anesthesia 03/15/22 1030 Intraprocedure I/O Totals Intake LR (Lactated ringers) 450.00 mL NS (0.9% NaCl) 700.00 mL Total Intake 1150 mL Patient Transfer Location: PACU Transport Airway: spontaneous [...] understanding of report from the receiving PACUteam. May Nelson MD documented in this encounter Plan of Treatment Upcoming Encounters Date Type Department Care Team (Late st Contact Info) Description 12/05/2024 1:00 PM CDT Office Visit [facility] - Neurology [address] [place] [address], [facility] [place] [address] Sean Raymundo DO [address] [place] [address] [place] [address] documented as of this encounter Procedures Procedure Name Priority Date/Time Associated Diagnosis Comments ENDOTRACHEAL TUBE NOTE Routine 03/15/2022 9:57 AM CDT documented in this encounter Results * ETT LINE PERFORMABLE (03/15/2022 9:57 AM CDT) Narrative Loretta Coronado MD - 03/15/2022 9:57 AM CDT Loretta Coronado MD ? 03/15/2022 10:28 AM Endotracheal Tube Placement: ? Patient Location: OR. Intubation Event Date/Time: ??03/15/2022 9:57 AM Procedure: intubation (44339). Procedure Section: ?? Sedation: under general anesthesia. [...] Ariela Conde MD GENERAL ANESTHESIA O RDERABLES documented in this encounter Visit Diagnoses Not on filedocumented in this encounter Administered Medications Inactive Administered Medications - up to 3 most recent administrations Medication Order MAR Action Action Date Dose Rate Site 0.9% NaCl infusion Intravenous, CONTINUOUS PRN, Starting on Tue03/15/22 at 1003, Until Tue03/15/22 at 1116, Anesthesia Intra-op $ New Bag/Syringe 03/15/2022 10:03 AM CDT fentaNYL (PF) (Sublimaze) injection Intravenous, PRN, Starting on Tue03/15/22 at 0954, Until Tue03/15/22 at 1116, Anesthesia Intra-op $ Given 03/15/2022 10:17 AM CDT 50 mcg $ Given 03/15/2022 9:54 AM CDT 50 mcg ketorolac (Toradol) injection Intravenous, PRN, Starting on Tue03/15/22 at 1051, Until Tue03/15/22 at 1116, Anesthesia Intra-op $ Given 03/15/2022 10:51 AM CDT 30 mg lactated ringers infusion Intravenous, CONTINUOUS PRN, Starting on Tue03/15/22 at 0946, Until Tue03/15/22 at 1116, Anesthesia Intra-op $ New Bag/Syringe 03/15/2022 9:46 AM CDT lidocaine HCl (PF) (Xylocaine MPF) 2 % injection Intravenous, PRN, Starting on Tue03/15/22 at 0954, Until Tue03/15/22 at 1116, Anesthesia Intra-op $ Given 03/15/2022 9:54 AM CDT 100 mg ondansetron (Zofran) injection Intravenous, PRN, Starting on Tue03/15/22 at 1044, Until Tue03/15/22 at 1116, Anesthesia Intra-op $ Given 03/15/2022 10:44 AM CDT 4 mg phenylephrine 100 mcg/mL injection Intravenous, PRN, Starting on Tue03/15/22 at 1010, Until Tue03/15/22 at 1116, Anesthesia Intra-op $ Given 03/15/2022 10:51 AM CDT 100 mcg $ Given 03/15/2022 10:43 AM CDT 150 mcg $ Given 03/15/2022 10:40 AM CDT 50 mcg propofol (Diprivan) injection Intravenous, PRN, Starting on Tue03/15/22 at 0954, Until Tue03/15/22 at 1116, Anesthesia Intra-op $ Given 03/15/2022 9:54 AM CDT 100 mg rocuronium (Zemuron) injection Intravenous, PRN, Starting on Tue03/15/22 at 0954, Until Tue03/15/22 at 1116, Anesthesia Intra-op $ Given 03/15/2022 9:54 AM CDT 40 mg sugammadex (Bridion) injection Intravenous, PRN, Starting on Tue03/15/22 at 1056, Until Tue03/15/22 at 1116, Anesthesia Intra-op $ Given 03/15/2022 10:56 AM CDT 200 mg documented in this encounter Additional Health Concerns Infection Onset Date Last Indicated Resolved Time MRSA Comment:05/13 MRSA nasal swab doesn't require iso, ES 03/09/2022 03/09/2022 05/13/2022 6:57 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
--- OUTSIDE RECORDS SUMMARY | 2024-06-08 05:40 | XMS_ITS | Encounter Summary ---
Author Organization [facility] Health Address [address] [place] [address] Care Team Providers Care Net Web Developer Name Role Phone Elizabeth Sullivan RN Unavailable [phone] Daryl Barr MD Primary Care Provider [phone] Reason for Visit * Reason Onset Date Comments Seizure 01/25/2022 Encounter Details Date Type Department Care Team (Late st Contact Info) Description 01/25/2022 Telephone [facility] [address] [place] [address] Yana Rm, CYLINDER DYER-TRACTOR TRAILER DRIVER [address] [place] [address] Seizure Social History Tobacco Use Types Packs/Day Years Used Date Smoking Tobacco: Former Cigarettes 1 15 Smokeless Tobacco: Never Alcohol Use Standard Drinks/Week Comments No 0 (1 standard drink = 0.6 oz pur e alcohol) last drink 2015 AUDIT-C Answer Date Recorded Q1: How often do you have a drink containing alcohol? Never 12/27/2021 Q2: How many drinks containi ng alcohol do you have on a typical day when you are drinking? Patient does not drink Q3: How often do you have si x or more drinks on one occasion? Never 12/27/2021 Hunger Vital Sign Answer Date Recorded Within the past 12 months, y ou worried that your food would run out before you got the money to buy more. Never true 12/23/19 22 Within the past 12 months, t he food you bought just didn't last and you didn't have money to get more. Never true 12/22/2021 Sex and Gender Information Value Date Recorded Sex Assigned at Not on file Gender Identity Not on file Sexual Orientation Not on file documented as of this encounter Functional Status Functional Status Response Date of Assess ment Is person deaf or have serious hearing difficult y? No 12/26/2021 Is person blind or have serious difficulty seein g? No 12/26/2021 Does person have serious dif ficulty walking/climbing stairs? Yes 12/26/2021 Does person have difficulty dressing/bathing? Ye s 12/26/2021 Does person have difficulty doing errands alone? Yes 12/26/2021 Cognitive Status Response Date of Assessm ent Does person have difficulty concentrating/remembering/making decisions? Yes 12/26/2021 documented as of this encounter Miscellaneous Notes * Telephone Encounter - Michaela Bass RN - 01/25/2022 1:50 PM CDT Patient is in rehab facility and caregiver states that he started having more seizures. Caregiver doesn't really know what he is on or if they have changed his medications. Did have a UTI and this may have triggered seizures. Would like to know if OPERATIONS SPECIALISTS Jag needs to adjust meds due to the increase in seizures. Patient's sister Adriane would like a call back from BOUCHRA Rm. Will forward to BOUCHRA Rm for her review and recommendations. documented in this encounter Plan of Treatment Upcoming Encounters Date Type Department Care Team (Late st Contact Info) Description 12/05/2024 1:00 PM CDT Office Visit [facility] - Neurology [address] [place] [address], [place] [address] Sean Raymundo, DO [address] [place] [address] [place] [address] documented as of this encounter Visit Diagnoses Not on filedocumented in this encounter Care Teams Net Web Developer Relationship Specialty Start Date End Date Daryl Barr MD PCP - General 09/16/20 03/07/22 Elizabeth Sullivan, RN Cleaning Laborer 10/14/17 documented as of this encounter
--- OUTSIDE RECORDS SUMMARY | 2024-06-08 05:40 | XMS_ITS | Encounter Summary ---
Author Organization [facility] Health Address [address] [place] [address] Care Team Providers Care Assistant Corporate Controller Name Role Phone Elizabeth Sullivan RN Unavailable [phone] Daryl Barr MD Primary Care Provider [phone] Reason for Visit * Reason Onset Date Comments Order 02/09/2022 Encounter Details Date Type Department Care Team (Late st Contact Info) Description 02/09/2022 Telephone [facility] [address] [place] [address] Yana Rm, CHAIR AND COUCH MAKER-OCCUPATIONAL HEALTH NURSE [address] [place] [address] Order Social History Tobacco Use [...] Telephone Encounter - Michaela Bass RN - 02/09/2022 11:56 AM CDT Images from the original note were not included. Per IT PORTFOLIO MANAGER Berneking: Yana Rm APRN-Michaela Snow, ALFRED Caller: Unspecified (Today, 10:22 AM) Thanks so much Nataliia, Can you let the sister know that I cannot go against ST recommendations, but will have them reevaluate him to see what's appropriate. -Yana Spoke with Adriane patient's sister and she said that she has already spoke with the Speech Therapistat the Facility and they told her that they have evaluated him and he is now going to receive a soft mechanical diet and doesn't believe that he needs another Speech eval. Asked that I give IT PORTFOLIO MANAGER Berneking this information. * Telephone Encounter - Michaela Bass RN - 02/09/2022 10:16 AM CDT [facility] at the facility. Patient on pureed diet per Speech Therapy in house recommendations. Inquired about lab work and they have no idea what is going on with the lab work but will check and call me back. I was told that we could fax orders over for the patient to be evaluated by Speech Therapy. Orders need to be faxed to the attention of Shaista at [phone]. Will await a return call from the nurse regarding labs and will forward this information to OBUCHRA Rm for her review. * Telephone Encounter - Michaela Bass RN - 02/09/2022 9:27 AM CDT ----- Message from ELANA Cullen sent at 02/09/2022 8:43 AM CDT ----- Regarding: FW: PT IN FACILITY Sommer William, No grossman, would you be able to check with facility what diet they have him on? I'm assuming they have him on a diet based off speech therapy recommendation. Can you see if they have ability to have STevaluate him, I can order if needed. Thanks! -Yana ----- Message ----- From: Meera Hernandez Sent: 02/09/2022 8:39 AM CDT To: ELANA Cullen Subject: PT IN FACILITY Yana, Patient's brother called, Adriane, her brother is in a facility, they are not giving him normal food.She is wanting you to let them know that he can eat regular food. She would like for you to call her at [phone]. Thanks! Kortney documented in this encounter Plan of Treatment Upcoming Encounters Date Type Department Care Team (Late st Contact Info) Description 12/05/2024 1:00 PM CDT Office Visit [facility] - Neurology [address] [place] [address], [place] [id number] Sean Raymundo, DO [address] [place] [address] [place] [address] documented as of this encounter Visit Diagnoses Not on filedocumented in this encounter Care Teams Assistant Corporate Controller Relationship Specialty Start Date End Date Daryl Barr MD PCP - General 09/16/20 03/07/22 Elizabeth Sullivan RN Driver Education Road Instructor 10/14/17 documented as of this encounter
--- OUTSIDE RECORDS SUMMARY | 2024-06-08 05:40 | XMS_ITS | Encounter Summary ---
Author Organization [facility] Health Address [address] [place] [address] Care Team Providers Care Machine Assembler For Puller Over Name Role Phone Elizabeth Sullivan RN Unavailable [phone] Daryl Barr MD Primary Care Provider [phone] Reason for Visit * Reason Onset Date Comments Order 02/15/2022 Encounter Details Date Type Department Care Team (Late st Contact Info) Description 02/15/2022 Telephone [facility] [address] [place] [address] Yana Rm, SAIL MAKER-BEAUTY CONSULTANT [address] [place] [address] Order Social History Tobacco Use [...] Telephone Encounter - Michaela Bass RN - 02/15/2022 12:34 PM CDT Per HEEL DIPPER Jag: Sommer Looks like the levetiracetam level, clobazam level, lacosamide level are missing Only seeing the cbc, cmp and valproic acid level Thanks! Called [facility] and spoke with Roxanne SIMON and she states that she cannot find the lab results. Will ask DON to look for results and will fax if they find it but will call back and let this RN know. Re-faxed orders to Shaista at [phone] for clobazam, lacosamide and levetiracetam levels. Will await a response. * Telephone Encounter - Michaela Bass RN - 02/15/2022 8:48 AM CDT Called [facility] and spoke with Donna regarding patient's lab work for his visit tomorrow. She states that the facility was unaware that he had an appointment with BOUCHRA Rm tomorrow. Informed them that the sister was under the impression that he would be attending this appointment. Donna states that she takes care of the appointments and arranging transportation and she will have to reschedule this. I informed her that she may want to reach out to the patient's sister to discuss this. Asked about the lab orders that we sent on 02/04/2022. She does not know anything about this. This RN has faxed them several times to the attention of Shaista. Faxed again today. Requested a call back to inform this RN when the labs were either drawn or when they will be drawn if they have not beendrawn yet. Gave Donna my direct line to call me back. Will await a response. Will forward to BOUCHRA Rm for her review. documented in this encounter Plan of Treatment Upcoming Encounters Date Type Department Care Team (Late st Contact Info) Description 12/05/2024 1:00 PM CDT Office Visit [facility] - Neurology [address] [place] [address], [place] [address] Sean Raymundo, [address] [place] [address] [place] [phone] documented as of this encounter Visit Diagnoses Not on filedocumented in this encounter Care Teams Machine Assembler For Puller Over Relationship Specialty Start Date End Date Daryl Barr MD PCP - General 09/16/20 03/07/22 Elizabeth Sullivan, ALFRED Silk Examiner 10/14/17 documented as of this encounter
--- OUTSIDE RECORDS SUMMARY | 2024-06-08 05:40 | XMS_ITS | Encounter Summary ---
Author Organization [facility] Health Address [address] [place] [address] Care Team Providers Care Wrecking Car Driver Name Role Phone Elizabeth Sullivan RN Unavailable [phone] Daryl Barr MD Primary Care Provider [phone] Reason for Visit * Reason Onset Date Comments Question 02/03/2022 Encounter Details Date Type Department Care Team (Late st Contact Info) Description 02/03/2022 Telephone [facility] [address] [place] [address] Yana Rm, AUTOMATIC BEADING LATHE OPERATOR-TOOL DESIGN ENGINEER [address] [place] [address] Question Social History Tobacco Use Types Packs/Day Years [...] Telephone Encounter - Michaela Bass RN - 02/04/2022 9:56 AM CDT Lab orders faxed to [address] Nurse at [phone]. Requested that results be faxed to our office at [phone]. * Telephone Encounter - Michaela Bass RN - 02/04/2022 9:27 AM CDT Called sister Adriane to see where she could have patient's labs drawn and patient is currently in assisted living at [facility]. Informed her that a referral was placed for living assistance. Called assisted living and they told this RN to fax over the lab orders and the GAMBRELER HELPER at the facility [facility] and approve orders for lab draw at the facility. orders to the attention of the [address] [place] [address] Nurse. Will forward to BOUCHRA Rm. * Telephone Encounter - Michaela Bass RN - 02/04/2022 9:26 AM CDT Images from the original note were not included. Per GAMBRELER HELPER Jag: Yana Rm, AUTOMATIC BEADING LATHE OPERATOR-TOOL DESIGN ENGINEER Michaela Bass RN Caller: Unspecified (Yesterday, ??9:51 AM) Would you be able to reach out to patient's sister and see where they could get blood work done? Want to see where his lab values are before we make any adjustments. Can you let her know I'm going to put in a referral to social work program coordinator to assist with living concerns. Thank you! -Yana * Telephone Encounter - Evy Frost RN - 02/03/2022 10:17 AM CDT Received message from caregiver. She states patient just [facility] and is now at [facility]. She states this is not working and is requesting assistance with finding him a new place to live. She states the new medication is causing halluncinations and felipe was not notified of this until he was discharged. She states patient is very stressed in his new environment . States he cannot live alone but she is thinking about an apartment and have someonelive with him. She is requesting assistance/recommendation for living arrangements..patient was previously living at home. Return call to Caregiver - she states she is concerned about the hallucinations as they can be dangerous to patient. She thinks this is from the strong medicine that he is on. She states [facility] but patient is very stressed there. She states he has an apartment but cannot live alone. She is inquiring in an appointment is needed to see him and assistance with living situation. documented in this encounter Plan of Treatment Upcoming Encounters Date Type Department Care Team (Late st Contact Info) Description 12/05/2024 1:00 PM CDT Office Visit [facility] - Neurology [facility], [place] [address] Sean Raymundo, DO [address] [place] [address] documented as of this encounter Visit Diagnoses Not on filedocumented in this encounter Care Teams Wrecking Car Driver Relationship Specialty Start Date End Date Daryl Barr MD PCP - General 09/16/20 03/07/22 Elizabeth Sullivan, RN Antenna Design Engineer 10/14/17 documented as of this encounter
--- OUTSIDE RECORDS SUMMARY | 2024-06-08 05:40 | XMS_ITS | Encounter Summary ---
Author Organization [facility] Address [address] [place] [address] Care Team Providers Care Marketing Development Representative Name Role Phone Elizabeth Sullivan RN Unavailable [phone] Daryl Barr MD Primary Care Provider [phone] Reason for Visit * Reason Comments Pain Foot Pt [facility] and famil y from [facility] with c/o L foot pain that began a couple weeks ago that has become progressive worse. Foot is swollen, skin is dry and peeling, small ulcer noted. [facility] stroke 2016, vascular surgery, and vascular issues. Cap refill <3 secs, foot warm to touch, pulse palpable. Family also states pt has loss of appetite and slurred speech since 24 hours prior. Encounter Details Date Type Department Care Team (Late st Contact Info) Description 03/05/2022 3:14 PM CDT - 03/05/2022 3:15 PM CDT Emergency [facility] EMERGENCY DEPARTMENT [address] [place] [id number] Left foot pain; History of CVA (cerebrovascular accident) Discharge Disposition: Left Against Medical Advice/Discontinued Care Social History Tobacco Use Types Packs/Day [...] Sign Reading Time Taken Comments Blood Pressure 127/74 03/05/2022 10:17 AM CDT Pulse 120 03/05/2022 10:17 AM CDT Temperature 36.6 ??C (97.8 ??F) 03/05/2022 10:17 AM C DT Respiratory Rate 19 03/05/2022 10:17 AM CDT Oxygen Saturation 100% 03/05/2022 10:17 AM CDT Inhaled Oxygen Concentration - - Weight 62.6 kg (138 lb) 03/05/2022 10:17 AM CDT Height 180.3 cm (5' 11 ) 03/05/2022 10:17 AM CDT Body Mass Index 19.25 03/05/2022 10:17 AM CDT documented in this encounter Functional [...] Yes 12/26/2021 documented as of this encounter Medications at Time of Discharge Medication Sig Dispensed Refills Start Date End Date acetaminophen (Tylenol) 325 MG tablet Take 1 (one) tablet by mouth every 6 hours as needed for Fever or Pain 01/07/2022 06/15/2022 amLODIPine (Norvasc) 5 MG tablet Take 1 (one) tablet by mouth at bedtime 60 tablet 3 01/07/2022 04/01/2022 aspirin (Aspirin) 81 MG chew tablet Take 1 (one) tablet by mouth once daily 60 tablet 2 01/08/2022 06/15/2022 atorvastatin (Lipitor) 40 MG tablet Take 1 (one) tablet by mouth once daily 60 tablet 2 01/08/2022 04/01/2022 cloBAZam (Onfi) 10 MG tablet Take 1 (one) tablet by mouth 2 times daily 60 tablet 3 02/16/2022 04/01/[address] (Depakote) 500 MG tablet Take 2 (two) tablets by mouth 2 times daily 120 tablet 11 02/16/2022 04/01/2022 folic acid (Folvite) 1 MG tablet Take 1 (one) tablet by mouth once daily 60 tablet 2 01/08/2022 04/01/2022 ibuprofen (Motrin) 600 MG tablet Take 1 (one) tablet by mouth as needed 30 tablet 01/07/2022 04/01/2022 lacosamide (Vimpat) 200 MG tablet Take 1 (one) tablet by mouth 2 times daily 60 tablet 3 02/16/2022 04/01/2022 lacosamide (VIMPAT) 200 MG tablet Take 1 tablet by mouth 2 times daily for 30 days 60 tablet 5 05/16/2019 06/28/2023 levETIRAcetam (Keppra) 1000 MG tablet Take 2 (two) tablets by mouth every 12 hours 120 tablet 11 02/16/2022 04/01/2022 levETIRAcetam (KEPPRA) 1000 MG tablet Take 2 tablets by mouth 2 times daily for 30 days 120 tablet 5 05/16/2019 01/14/2023 levETIRAcetam (KEPPRA) 1000 MG tabletIndications: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, intractable, without status epilepticus (HCC) Take 2 tablets by mouth 2 times daily for 30 days 120 tablet 5 02/15/2019 01/14/2023 levETIRAcetam (KEPPRA) 750 MG tabletIndications:Part ial 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, intractable, without status epilepticus (HCC) Take 3 tablets by mouth 2 times daily for 30 days 180 tablet 06/10/2018 01/14/2023 Multiple Vitamin (One Daily Multivitamin Adult) TABS Take 1 tablet by mouth once daily 08/22/2020 04/01/2022 multivitamin daily tablet Take 1 (one) tablet by mouth once daily 01/08/2022 04/01/2022 ondansetron (Zofran) 2 MG/ML injection 4 (four) mg by Intravenous route every 8 hours as needed for Nausea/Vomiting 01/07/2022 04/01/2022 ondansetron, disintegrating, (Zofran ODT) 4 MG tablet 02/02/2022 04/01/2022 polyethylene glycol 3350 (Miralax) 17 g packet Take 17 (seventeen) g by mouth once daily 01/08/2022 06/15/2022 tamsulosin (Flomax) 0.4 MG capsule Take 1 (one) capsule by mouth once daily At the same time every day after a meal. 30 capsule 2 01/08/2022 04/01/2022 thiamine (Vitamin B-1) 100 MG tablet Take 1 (one) tablet by mouth once daily 30 tablet 2 01/08/2022 04/01/2022 vitamin D3 (Cholecalciferol) 25 MCG (1000 UNITS) tablet Take 1 (one) tablet by mouth once daily 30 tablet 2 01/08/2022 04/01/2022 documented as of this encounter ED Notes * Eliane Lewis RN - 03/05/2022 3:12 PM CDT After drawing pt blood, sister stated they have to leave because this is their last ride and they need to get back to the [facility], instructed sister and pt about importance of staying and signing out AMA, sister stated they cannot stay I will bring him back Tuesday morning, he can not stay here in this condition, the [facility] didn't even want me to bring him here, I need to get him back Pulled out pt IV and saw them leave through the exit doors. * Kami Jay - 03/05/2022 1:25 PM CDT Pt IV fluids is done * Nuria Mosley - 03/05/2022 12:41 PM CDT Patient provided with specimen cup and urinal for urine sample att. * Nuria Mosley - 03/05/2022 12:40 PM CDT Patient taken to restroom to try and obtain urine sample with no success. documented in this encounter Plan of Treatment Upcoming Encounters Date Type Department Care Team (Late st Contact Info) Description 12/05/2024 1:00 PM CDT Office Visit [facility] - Neurology [address] [place] [address], [facility] [place] [address] Sean Raymundo, DO [address] [place] [address] [place] [phone] documented as of this encounter Procedures Procedure Name Priority Date/Time Associated Diagnosis Comments LACTIC ACID BLOOD REFLEX TO REPEAT Timed STAT 12/08/2022 4:28 AM CDT LACTIC ACID BLOOD REFLEX TO REPEAT Timed STAT 03/05/2022 2:41 PM CDT LACTIC ACID REPEAT REFLEX Timed STAT 03/05/2022 2:41 PM CDT COMPREHENSIVE METABOLIC PANEL STAT 03/05/2022 2:41 PM CDT XR FOOT LEFT 3VW OR MORE STAT 03/05/2022 11:48 AM CDT Left foot pain PT-INR [facility] STAT 03/05/2022 11:10 AM CDT LACTIC ACID BLOOD REFLEX TO REPEAT STAT 03/05/2022 11:10 AM CDT LACTIC ACID REPEAT REFLEX STAT 03/05/2022 11:10 AM CDT CBC W AUTO DIFFERENTIAL STAT 03/05/2022 11:10 AM CDT documented in this encounter Results * LACTIC ACID BLOOD REFLEX TO REPEAT (12/08/2022 4:28 AM CDT) Pathologist [facility] Lactic Acid-Stat 1.0 <=2.0 mmol/L 12/08/2022 5:58 AM CDT [facility] Blood BLOOD SPECIMEN / Unknown Lab Venipuncture / Unknown 12/08/2022 4:28 AM CDT 12/08/2022 5:34 AM CDT Mary Aiken PA-C LAB - CHEMISTRY [facility] [address] [address], [facility] [phone] * LACTIC ACID REPEAT REFLEX (03/05/2022 2:41 PM CDT) Pathologist [facility] Lactic Acid Repeat Reflex Order LACTIC ACID REPEAT HAS BEEN ORDERED 03/05/2022 5:02 PM CDT [facility] Blood BLOOD SPECIMEN / Unknown Venipuncture / Unknown 03/05/2022 2:41 PM CDT 03/05/2022 3:15 PM CDT Mary Aiken PA-C LAB - CHEMISTRY [facility] [address] [address], [facility] [phone] * (ABNORMAL) LACTIC ACID BLOOD REFLEX TO REPEAT (03/05/2022 2:41 PM CDT) [facility] Lactic Acid-Stat 2.9(H) <=2.0 mmol/L 03/05/2022 3:15 PM [facility] Blood BLOOD SPECIMEN / Unknown Venipuncture / Unknown 03/05/2022 2:41 PM CDT 03/05/2022 2:51 PM CDT Mayr Aiken PA-C LAB - CHEMISTRY [facility] [address] [place] [address], [facility] [phone] * (ABNORMAL) COMPREHENSIVE METABOLIC PANEL (03/05/2022 2:41 PM CDT) BUN 19 7 - 26 mg/dL 03/05/2022 3:21 PM [facility] Creatinine 1.01 0.71 - 1.16 mg/dL 03/05/2022 3:21 PM [facility] Sodium 142 136 - 145 mmol/L 03/05/2022 3:21 PM [facility] Potassium 4.1 3.5 - 4.5 mmol/L 03/05/2022 3:21 PM [facility] Chloride 107 98 - 107 mmol/L 03/05/2022 3:21 PM [facility] CO2 19(L) 22 - 29 mmol/L 03/05/2022 3:21 PM [facility] Glucose 114 70 - 115 mg/dL 03/05/2022 3:21 PM [facility] Calcium 10.0 8.4 - 10.2 mg/dL 03/05/2022 3:21 PM [facility] Protein Total 7.8 6.0 - 8.3 g/dL 03/05/2022 3:21 PM [facility] Albumin 3.3(L) 3.4 - 5.0 g/dL 03/05/2022 3:21 PM [facility] Bilirubin Total 0.4 0.2 - 1.2 mg/dL 03/05/2022 3:21 PM [facility] Alkaline Phosphatase 89 40 - 150 U/L 03/05/2022 3:21 PM [facility] ALT 13 5 - 55 U/L 03/05/2022 3:21 PM CDT [facility] AST 22 5 - 34 U/L 03/05/2022 3:21 PM T [facility] Anion Gap 20(H) 8 - 18 03/05/2022 3:21 PM T [facility] BUN/Creatinine Ratio 19 7 - 23 03/05/2022 3:21 PM T [facility] Osmolality Calculated 297 270 - 300 mOsm/kg 03/05/2022 3:21 PM T [facility] Albumin/Globulin Ratio 0.7(L) 1.1 - 2.3 03/05/2022 3:21 PM T [facility] eGFR by CKD-EPI 85(L) >=90 mL/min/1.7 3 m2 03/05/2022 3:21 PM T [facility] Blood BLOOD SPECIMEN / Unknown Venipuncture / Unknown 03/05/2022 2:41 PM CDT 03/05/2022 2:51 PM CDT Mary Aiken PA-C LAB - CHEMISTRY [facility] [address] [place] [address], [facility] [phone] * XR FOOT LEFT 3VW OR MORE (03/05/2022 11:48 AM CDT) Anatomical Region Laterality Modality Ankle / Foot Radiographic Cynthia ging 03/05/2022 12:1 8 PM CDT Impressions 03/05/2022 12:24 PM CDT IMPRESSION: No evidence of osteomyelitis or other acute osseous abnormality. > Interpreting Provider: Rachel Phillips MD on 03/05/2022 12:24 PM Narrative 03/05/2022 12:24 PM CDT PROCEDURE: ??XR FOOT LEFT 3VW OR MORE, DATE/TIME OF EXAM: ??03/05/2022 11:48 AM, LOCATION ??[facility] INDICATION: M79.672: Left foot pain ADDITIONAL CLINICAL INFORMATION: Ordering Provider Reason For Exam: ??Eval for OM - ulcer near first MTP joint Comparison: None FINDINGS: There is no acute fracture or dislocation. There is no cortical erosion or focal osteopenia to suggest osteomyelitis. The ulcer is apparent medial to the head of the first metatarsal. The underlying bone appears intact. Joint spaces are preserved. Claw toe deformities are noted. Diffuse osteopenia is evident. Atherosclerotic calcification is seen. Procedure Note Rachel Phillips MD - 03/05/2022 PROCEDURE: XR FOOT LEFT 3VW OR MORE, DATE/TIME OF EXAM: 1:48 AM, LOCATION [facility] INDICATION: M79.672: Left foot pain ADDITIONAL CLINICAL INFORMATION: Ordering Provider Reason For Exam: Eval for OM - ulcer near first MTP joint Comparison: None FINDINGS: There is no acute fracture or dislocation. There is no cortical erosionor focal osteopenia to suggest osteomyelitis. The ulcer is apparent medialto the head of the first metatarsal. The underlying bone appears intact.Joint spaces are preserved. Claw toe deformities are noted. Diffuse osteopeniais evident. Atherosclerotic calcification is seen. IMPRESSION: No evidence of osteomyelitis or other acute osseous abnormality. > Interpreting Provider: Rachel Phillips MD on 03/05/2022 12:24 PM Mary Aiken PA-C DIAGNOSTIC IMAGING O RDERABLES * LACTIC ACID REPEAT REFLEX (03/05/2022 11:10 AM CDT) Pathologist [facility] Lactic Acid Repeat Reflex Order LACTIC ACID REPEAT HAS BEEN ORDERED 03/05/2022 1:34 PM CDT [facility] Blood BLOOD SPECIMEN / Unknown Venipuncture / Unknown 03/05/2022 11:10 AM CDT 03/05/2022 11:57 AM CDT Mary Aiken PA-C LAB - CHEMISTRY [facility] [address] [address], [facility] [phone] * (ABNORMAL) LACTIC ACID BLOOD REFLEX TO REPEAT (03/05/2022 11:10 AM CDT) Lactic Acid-Stat 2.7(H) <=2.0 mmol/L 03/05/2022 11:57 AM CDT [facility] Blood BLOOD SPECIMEN / Unknown Venipuncture / Unknown 03/05/2022 11:10 AM CDT 03/05/2022 11:21 AM CDT Mary Aiken PA-C LAB - CHEMISTRY ORDE RABLES Performing Organization Address [facility]/ZIP Co de Phone Number [facility] [address] [place] [address], [facility] [phone] * PT-INR [facility] (03/05/2022 11:10 AM CDT) PT 13.4 12.1 - 14.8 Seconds 03/05/2022 11:49 AM CDT [facility] INR 1.0 See Comment 03/05/2022 11:49 AM T [facility] Comment:The suggested therap eutic range for standard coumadin (warfarin) therapy is an INR of 2.0-3.0. For high-risk patients (Mechanical Mitral Valve Prosthesis, etc.), the suggested prophylactic therapeutic range is an INR of 2.5-3.5. Blood BLOOD SPECIMEN / Unknown Venipuncture / Unknown 03/05/2022 11:10 AM CDT 03/05/2022 11:22 AM CDT Mary Aiken PA-C LAB - COAGULATION OR DERABLES [facility] [address] [place] [address], [facility] [phone] * (ABNORMAL) CBC W AUTO DIFFERENTIAL (03/05/2022 11:10 AM CDT) WBC 11.0(H) 3.5 - 10.5 10? 3 /uL 03/05/2022 11:36 AM CDT [facility] RBC 4.77 4.30 - 5.70 10? 6 /uL 03/05/2022 11:36 AM CDT [facility] Hemoglobin 15.4 12.0 - 17.6 g/dL 03/05/2022 11:36 AM CDT [facility] Hematocrit 45.4 35.2 - 51.7 % 03/05/2022 11:36 AM [facility] MCV 95.2 80.7 - 98.3 fL 03/05/2022 11:36 AM [facility] MCH 32.3 26.7 - 34.0 pg 03/05/2022 11:36 AM [facility] MCHC 33.9 30.8 - 35.9 g/dL 03/05/2022 11:36 AM [facility] Platelet Count 176 150 - 400 10? 3 /uL 03/05/2022 11:36 AM [facility] RDW-SD 43.3 36.0 - 50.0 fL 03/05/2022 11:36 AM [facility] RDW-CV 12.3 11.2 - 14.8 % 03/05/2022 11:36 AM [facility] MPV 11.7 9.4 - 12.9 fL 03/05/2022 11:36 AM [facility] nRBC Absolute 0.00 0 10? 3 /uL 03/05/2022 11:36 AM [facility] nRBC Auto 0.0 0 /100 WBC 03/05/2022 11:36 AM [facility] Neutrophils % 60.9 35.0 - 70.0 % 03/05/2022 11:36 AM [facility] Lymphocytes % 26.1 20.0 - 43.0 % 03/05/2022 11:36 AM [facility] Monocytes % 11.0 5.0 - 13.0 % 03/05/2022 11:36 AM [facility] Eosinophils % 1.4 0.0 - 6.0 % 03/05/2022 11:36 AM [facility] Basophil % 0.2 0.0 - 2.0 % 03/05/2022 11:36 AM [facility] Neutrophils Absolute 6.72 1.60 - 7.00 10? 3 /uL 03/05/2022 11:36 AM [facility] Lymphocyte Absolute 2.88 1.10 - 3.90 10? 3 /uL 03/05/2022 11:36 AM [facility] Monocytes Absolute 1.21(H) 0.26 - 1.07 10? 3 /uL 03/05/2022 11:36 AM CDT [facility] Eosinophils Absolute 0.15 0.00 - 0.47 10? 3 /uL 03/05/2022 11:36 AM CDT [facility] Basophils Absolute 0.02 0.00 - 0.08 10? 3 /uL 03/05/2022 11:36 AM CDT [facility] Immature Granulocytes % 0.4 0.0 - 1.0 % 03/05/2022 11:36 AM CDT [facility] Immature Granulocytes Absolute 0.04 03/05/2022 11:36 AM CDT [facility] Blood BLOOD SPECIMEN / Unknown Venipuncture / Unknown 03/05/2022 11:10 AM CDT 03/05/2022 11:29 AM CDT Mary Aiken PA-C LAB - HEMATOLOGY ORD ERABLES [facility] [address] [place] [address], [facility] [phone] documented in this encounter Visit Diagnoses Diagnosis Left foot pain Pain in limb History of CVA (cerebrovascular accident) Transient ischemic attack (TIA), and cerebral infarction without residual deficits Procedure and treatment not carried out due to patient leaving prior to being seen by health care provider documented in this encounter Administered Medications Inactive Administered Medications - up to 3 most recent administrations Medication Order MAR Action Action Date Dose Rate Site 0.9% NaCl injection 1-10 mL 1-10 mL, Intracatheter, PRN, Other, peripheral line flush, Starting on Tue03/05/22 at 1034, Until Tue03/05/22 at 1615, Flush peripheral IV catheter with 1-10 mL of normal saline before and after medications and prn to clear blood from the line or to verify patency. 0.9% NaCl injection 3 mL 3 mL, Intracatheter, EVERY 8 HOURS, First dose on Tue03/05/22 at 1400, Until Discontinued, Flush peripheral IV catheter with 3 mL of normal saline every 8 hours. documented in this encounter Active and Recently Administered Medications Times are shown in CDT. Scheduled Medication Order 03/03/2022 03/04/2022 03/05/2022 0.9% NaCl injection 3 mL(Linked Group 1) 3 mL, Intracatheter, EVERY 8 HOURS, First dose on Tue03/05/22 at 1400, Until Discontinued, Flush peripheral IV catheter with 3 mL of normal saline every 8 hours. 1400 (Due) PRN Medication Order 03/03/2022 03/04/2022 03/05/2022 0.9% NaCl injection 1-10 mL(Linked Group 1) 1-10 mL, Intracatheter, PRN, Other, peripheral line flush, Starting on Tue03/05/22 at 1034, Until Tue03/05/22 at 1615, Flush peripheral IV catheter with 1-10 mL of normal saline before and after medications and prn to clear blood from the line or to verify patency. Linked Groups Order Group 1: SALINE LOCK, INSERT AND MAINTAIN (CANCELED) Routine, CONTINUOUS, Starting on Tue03/05/22 at 1045, Until Specified, New collection And 0.9% NaCl injection 3 mLJump to med 3 mL, Intracatheter, EVERY 8 HOURS, First dose on Tue03/05/22 at 1400, Until Discontinued, Flush peripheral IV catheter with 3 mL of normal saline every 8 hours. And 0.9% NaCl injection 1-10 mLJump to med 1-10 mL, Intracatheter, PRN, Other, peripheral line flush, Starting on Tue03/05/22 at 1034, Until Tue03/05/22 at 1615, Flush peripheral IV catheter with 1-10 mL of normal saline before and after medications and prn to clear blood from the line or to verify patency. documented in this encounter Care Teams Marketing Development Representative Relationship Specialty Start Date End Date Daryl Barr MD PCP - General 09/16/20 03/07/22 Elizabeth Sullivan, RN Jd Edwards Developer 10/14/17 documented as of this encounter
--- OUTSIDE RECORDS SUMMARY | 2024-06-08 05:40 | XMS_ITS | Encounter Summary ---
Author Organization [facility] Address [address] [place] [address] Care Team Providers Care Commercial Finance Manager Name Role Phone Elizabeth Sullivan RN Unavailable [phone] Daryl Barr MD Primary Care Provider Encounter Details Date Type Department Care Team (Late st Contact Info) Description 02/09/2022 Orders Only [facility] [address] [facility] [place] [address] Yana Rm, [employer] [address] [place] [phone] Social History Tobacco Use Types Packs/Day Years [...] Yes 12/26/2021 documented as of this encounter Plan of Treatment Upcoming Encounters Date Type Department Care Team (Late st Contact Info) Description 12/05/2024 1:00 PM CDT Office Visit [facility] - Neurology [address] [place] [address], [place] [address] Sean Raymundo, DO [address] [place] [phone] documented as of this encounter Visit Diagnoses Not on filedocumented in this encounter Care Teams Commercial Finance Manager Relationship Specialty Start Date End Date Daryl Barr MD PCP - General 09/16/20 03/07/22 Elizabeth Sullivan, ALFRED Cell Preparer 10/14/17 documented as of this encounter
--- OUTSIDE RECORDS SUMMARY | 2024-06-08 05:40 | XMS_ITS | Encounter Summary ---
Author Organization [facility] Health Address [address] [place] [address] Care Team Providers Care Power Supply Engineer Name Role Phone Elizabeth Sullivan RN Unavailable [phone] Daryl Barr MD Primary Care Provider Reason for Visit * Reason Comments Establish Care Seizure Encounter Details Date Type Department Care Team (Late st Contact Info) Description 02/16/2022 11:00 AM CDT Office Visit [facility] Neurology [address] [place] [id number] Yana Rm, BUSINESS MANAGEMENT INTERN-VEHICLE CHECK IN CLERK [address] [place] [address] Partial symptomatic epilepsy with simple [...] Sign Reading Time Taken Comments Blood Pressure 130/84 02/16/2022 11:07 AM CDT Pulse 77 02/16/2022 11:07 AM CDT Temperature 36.9 ??C (98.5 ??F) 02/16/2022 11:07 AM C DT Respiratory Rate - - Oxygen Saturation 98% 02/16/2022 11:07 AM CDT Inhaled Oxygen Concentration - - Weight 59.4 kg (131 lb) 02/16/2022 11:07 AM CDT Height 180.3 cm (5' 11 ) 02/16/2022 11:07 AM CDT Body Mass Index 18.27 02/16/2022 11:07 AM CDT documented in this encounter Functional [...] Yes 12/26/2021 documented as of this encounter Progress Notes * Yana Rm APRN-VEHICLE CHECK IN CLERK - 02/16/2022 11:00 AM CDT Epilepsy Clinic Note PCP Daryl Barr MD Date of Encounter: 02/16/2022 Chief Complaint: Seizure SEMIOLOGY AGE OF ONSET [...] 12/2021 PRE-VISIT MEDICATION Name Pill Size Frequency Total/day Levetiractam 1000 mg tab 2 - 2 4,000mg/day Depakote DR 500 mg tab 2 - 2 2,000mg/day Lacosamide 200 mg tab 1 - 1 400mg/day Clobazam 10mg 1 - 1 20mg/day ?? COMPLIANCE Good TREATMENT HISTORY Name Allergy/Side Effects/Ineffectiveness Name Allergy/Side Effects/Ineffectiveness Phenytoin Oxcarbazepine Hyponatremia Eslicabazepine Erratic Clonazepam Excessive somnolence at 4 mg/day/hallucinations Valtoco- was not using, did not want refills EE01/05/2022: (Dr. Raymundo) IMPRESSION This is an abnormal [...] LABORATORY RESULTS CBC: Recent Labs Component Name 01/07/22 0733 01/06/22 0121 01/05/22 0110 WBC 9.0 9.0 8.2 HGB 13.1 12.4 12.7 PLTCOUNT 137* 136* 144* BMP: Recent Labs Component Name 01/07/22 0733 01/06/22 0121 01/05/22 0110 NA 138 142 142 CO2 25 26 27 CREATININE 0.65* 0.81 0.80 LFT: Recent Labs Component Name 12/30/21 0119 12/29/21 0721 12/27/21 0117 AST 20 25 32 ALT 20 27 26 VITAMIN D: Recent Labs Component Name 05/10/19 0832 01/15/19 0722 [id number] 28.9* 6.7* HPI: History of Epilepsy: Mr. 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 Today's visit HPI: Bi Tabor is a 62 year old male established with [facility] Epilepsy clinic here today for a follow-up visit. Today patient is accompanied by his two sisters. Last visit patient was referred to EMU for medication adjustment [...] Patient alert today and answering questions appropriately. Will continue current medication regimen. Labs ordered last week and completed at facility, resultspending. 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 [...] (two) tablets by mouth every 12 hours ??? Multiple Vitamin (One Daily Multivitamin Adult) [...] 1 (one) tablet by mouth once daily No current facility-administered medications for this visit. Past Medical History: Diagnosis Date ??? CVA (cerebral vascular accident) ??? HTN (hypertension) ??? Seizure No family history on file. Social History [...] no Marijuana usage no Physical Exam: BP 130/84 Pulse 77 Temp 98.5 ??F (36.9 ??C) (Temporal) Ht 5' 11 (1.803 m) Wt 131 lb (59.4 kg) SpO2 98% General Awake, alert, appropriate HEENT: Head normocephalic and atraumatic Extremities: No cyanosis or edema noted ?? Cortical Function: MS: Awake, Alert, Follows Commands Oriented to Person, Place Language: some delayed responses, garbled at times ?? Cranial Nerves: Full EOM, No ptosis or nystagmus No facial palsy Palate symmetric; Normal tongue protrusion ?? Motor: Strength: RUE 5/5 LUE 4/5 RLE 5/5 LLE 4/5 Assessment/Plan: Bi Tabor is a 62 year old male with refractory, focal epilepsy. Patient was hospitalized from 12/21/21-01/07/2022, this was for a EMU admission initially to quantify seizure burden. During first few days of admission, despite no medication tapering the patient had frequent subclinical electrographic seizures and broad right posterior field clinical events. Clobazam was added to ASM regimen and Depakote was increased. Patient now lives in a SNF, no reported seizure events since discharge. Willcontinue current regimen -labs pending: drawn at SNF last week -Continue ASM medication regimen listed below -follow-up in 3 months or sooner if problems arise Patient and family agree and voice understanding of plan of care listed above POST-VISIT MEDICATION (Current to 09/01/2021) Name Pill Size Frequency Total/day Level Start Levetiractam 1000 mg tab 2 - 2 4,000mg/day Depakote DR 500 mg tab 2 - 2 2,000mg/day Lacosamide 200 mg tab 1 - 1 400mg/day Clobazam 10mg 1 - 1 20mg/day I told the in clear terms regarding importance of compliance. I personally spent 40 minutes on 02/16/2022 preparing to see the patient (e.g. reviewing chart, review of tests), obtaining and/or reviewing the separately obtained history, performing a medically necessary and appropriate examination and evaluation, counseling and educating the patient/family/caregiver, ordering medications, tests, or procedures, documenting in the patient record, and communicating results to the patient/family/caregiver. 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
--- OUTSIDE RECORDS SUMMARY | 2024-06-08 05:40 | XMS_ITS | Encounter Summary ---
Author Organization [facility] Health Address [address] [address] Care Team Providers Care Waiter/Waitress Formal Name Role Phone Elizabeth Sullivan RN Unavailable [phone] Joyce Luevano JUNIOR PROGRAMMER ANALYST-BOG CUTTER Primary Care Provider [phone] Reason for Visit * Reason Comments Altered [...] Expiration Date Visits Re quested Visits Authorized [id number] 1 1 Encounter Details Date Type Department Care Team (Late st Contact Info) Description 03/15/2022 10:03 AM CDT - 03/15/2022 11:58 AM CDT Surgery [facility] [address] [place] [id number] Anna Membreno MD [address] [facility] 2L [place] [id number] LEFT BKA POSS AKA Surgery Details Date/Time Status Location OR Service Patient Class Case Class Case Type Trauma Case? 03/15/2022 10:03 AM Posted [facility] OR Hybrid OR 2 Vascular Inpatient Panel 1 Procedure LRB Anes Op Region Wound Class Comments LEFT BKA POSS AKA Left General Dirty or Inf ected Surgeon Surgeon Role Service Panel Anna Membreno MD Primary Vascular 1 Brian Carmona MD Resident - Assisting Vascular 1 documented in this encounter Social History [...] Sign Reading Time Taken Comments Blood Pressure 87/60 03/15/2022 11:55 AM CDT Pulse 82 03/15/2022 11:55 AM CDT Temperature 36.3 ??C (97.4 ??F) 03/15/2022 11:15 AM C DT Respiratory Rate 17 03/15/2022 11:55 AM CDT Oxygen Saturation 94% 03/15/2022 11:55 AM CDT Inhaled Oxygen Concentration - - [...] Hospital Discharge Summary Patient ID: Mojgan Tabor [id number] 62 year old 1960 Admit date: 03/08/2022 [...] Lab Units 04/01/22 0608 03/31/22 0637 03/30/22 021 NA mmol/L 138 137 140 CL mmol/L [...] G-tube in place EXT: No edema. Disposition: nursing home facility Patient Instructions: Medication List START taking [...] at 10:00 am Contact information: [address] DIV OF VASCULAR SURGERY [facility] [phone] Joyce Luevano, JUNIOR PROGRAMMER ANALYST-BOG CUTTER . Specialty: Nurse Practitioner Why: Follow-up with PCP within 1 week after discharge from nursing facility Contact information: [address] [facility] [address] Contact information for after-discharge care Destination [facility] . Service: Snf Contact information: [address] [facility] [address] Discharge Instructions -1.8 cm spiculated [...] needs or concerns please contact Nico with [facility] at [phone]; their fax number is [phone] ?? For any incision/wound concerns or needs please contact the vascular surgery office at [phone]. After hours # is [phone] Incision/wound concerns include the following: ?? Redness, increased swelling, new or worsening pain, color changes, new drainage, foul odor, if the incision opens ?? Fevers/chills/temp > 101 Follow up with vascular Dr Membreno in 1 month for a wound check; you will be contacted regarding this. To make or change an appt call [phone] Signed: Dante Nuno MD 04/01/2022 Time spent [...] needs or concerns please contact Nico with [facility] at [phone]; their fax number is [phone] ?? For any incision/wound concerns or needs please contact the vascular surgery office at [phone]. After hours # is [phone] Incision/wound concerns include the following: ?? Redness, increased swelling, new or worsening pain, color changes, new drainage, foul odor, if the incision opens ?? Fevers/chills/temp > [address] Follow up with vascular Dr Membreno in 1 month for a wound check; you will be contacted regarding this. To make or change an appt call [phone] documented in this encounter Medications at Time [...] under control or absent 04/01/2022 1210 by Densise Conley RN Outcome: Completed 04/01/2022 1117 by [...] Cheema PT - 04/01/2022 11:48 AM CDT [facility] Department of Physical Medicine & Rehabilitation Progress Note Patient: Mojgan Tabor [facility] Record Number: [id number] Date of : 1960 Age: [age] year [...] Outcome: Adequate for Discharge * Gaurav Juarez MSW - 04/01/2022 9:20 AM CDT Facility Transfer Note Level of Care: Actual level of care at discharge: Alf - Skilled Facility Facility Name: (include name of person confirming admission): [facility] Made Aware of Special Needs (if applicable): Yes RN Call Report to:[phone] Fax D/C Orders to:[phone] Transportation (company and number): [employer] [phone] Certificate of Medical Necessity rationale: Yes Date/time of transfer: 04/01/2022 @ 12:00PM Accepting MD and contact #: Dr. Hoffman Completed and Signed [id number] (if applicable): Family/Other Notified of Transfer (name/phone): Sister notified Authorization Skilled Care: Authorization for Transportation: Verified Qualifying Stay(Skilled Only): YES Comments: Name/Phone number: CLARITA Ram [phone] * Anukr Shen RN - 04/01/2022 12:53 AM CDT [...] CDT ASHWIN spoke with pt's sister Adriane [phone] and she is agreeable to sending this pt to [facility] for nursing home care. ASHWIN spoke with Daina galvan @ [facility] and they are able to accept this pt tomorrow 04/01. ASHWIN has arranged for this pt to go to SNF tomorrow @ 12:00PM via [facility]. CLARITA Fang 03/31/2022 * Dina Thomas SLP - 03/31/2022 2:03 PM CDT [facility] Physical Medicine and Rehabilitation Swallow Treatment Patient: Mojgan Tabor Med Record Number: [id number] Date of : 1960 Age: [age] year [...] (Per recent MBS results) Treatment/Education/Interventions: While performing SKELP PROCESSOR, Patient was instructed in: recommendations for NPO [...] to PO intake without risk for aspiration. Retirement Goal (s): Patient to discharge to appropriate [...] Procedure Component Value - Date/Time CULTURE BLOOD [[id number]] (Normal) Collected: 03/12/22 0200 Lab Status: Final result Specimen: Blood Peripheral Updated: 03/17/22831 Culture No growth day 5 CULTURE BLOOD [[id number]] (Normal) Collected: 03/12/22 0158 Lab Status: Final result Specimen: Blood Peripheral Updated: 03/17/2232 Culture No growth day 5 CULTURE BLOOD [[id number]] (Normal) Collected: 03/11/228 Lab Status: Final result Specimen: Blood Peripheral Updated: 03/16/22801 Culture No growth day 5 CULTURE BLOOD [[id number]] (Normal) Collected: 03/11/22 033 Lab Status: Final [...] Skin integrity is maintained or improved 03/30/2022 2326 by Angelita Jarrett RN Outcome: Progressing 03/30/2022 2325 by Angelita Jarrett RN Outcome: Progressing Problem: Fall Risk Goal: Fall risk and fall related injury risk are minimized (interventions related to the fall risk can be found in the flowsheet documentation) 03/30/2022 232 by Angelita Jarrett RN Outcome: [...] CBC: Recent Labs Lab Units 03/30/22 0216 03/29/228 03/28/22 1105 WBC 10??3/uL 6.8 5.6 5.8 [...] Procedure Component Value - Date/Time CULTURE BLOOD [[id number]] (Normal) Collected: 03/12/22 0200 Lab Status: Final result Specimen: Blood Peripheral Updated: 03/17/22 0832 Culture No growth day 5 CULTURE BLOOD [[id number]] (Normal) Collected: 03/12/22 0158 Lab Status: Final result Specimen: Blood Peripheral Updated: 03/17/22 0832 Culture No growth day 5 CULTURE BLOOD [[id number]] (Normal) Collected: 03/11/22 0348 Lab Status: Final result Specimen: Blood Peripheral Updated: 03/16/22 0802 Culture No growth day 5 CULTURE BLOOD [[id number]] (Normal) Collected: 03/11/22 0337 Lab Status: Final [...] Internal Medicine 03/30/2022 1:19 PM * Shakila Medina OT - 03/30/2022 12:08 PM CDT [facility] Physical Medicine and Rehabilitation Occupational Therapy Progress Note New OT orders placed following general anesthesia for PEG placement with no significant changes in functional performance this day. Plan to continue with initial POC and tx as indicated. Patient: Mojgan Tabor Med Record Number: [id number] Date of : 1960 Age: [age] year [...] tolerance: fair minus. Modified Florentino: Current Modified [place] Score: 5 TREATMENT/INTERVENTIONS: ADL training Functional transfer [...] ADL at EOB with Min assist ?? Bottoming Room Inspector Goal(s): Patient to discharge to appropriate next [...] Saravia, PT - 03/30/2022 10:55 AM CDT [facility] Physical Medicine and Rehabilitation Physical Therapy Progress Note Patient: Mojgan Tabor [facility] Record Number: [id number] Date of : 1960 Age: [age] year [...] yes to therapy, states he is at [facility] Pain Assessment: Pain Rating Score #: 0 [...] vitals, cognitive stimulation and pt education Modified [place]: Current Modified [place] Score: 5 EDUCATION: While performing PT, Patient [...] transfer bed to/from chair??with maximal assist ?? Retirement Goal(s): Patient to discharge to appropriate next [...] , with family in room, with RN inroom, lines intact, rails and up with sz [...] Mojgan Tabor Age: [age] year old Room: [facility]/ Date Admitted: 03/08/2022 Chief Complaint: Seizure disorder [...] HLD, PVD,??CVA alcohol abuse, and??cervical osteoarthritis,??who??presented to [facility] from SNF??on 03/08/2022 for??worsening mentation 1. [...] 03/29/2022 9:30 PM CDT Pt transferred to [facility]. Report given to nurse Lily. Belongings and meds sent withpt. Sister Babak [...] Thomas SLP - 03/29/2022 10:51 AM CDT [facility] Physical Medicine and Rehabilitation Swallow Treatment Patient: Mojgan Tabor Med Record Number: [id number] Date of : 1960 Age: [age] year [...] (Per recent MBS results) Treatment/Education/Interventions: While performing SKELP PROCESSOR, Patient was instructed in: recommendations for NPO [...] to PO intake without risk for aspiration. Bottoming Room Inspector Goal (s): Patient to discharge to appropriate next level of inpatient care. Plan: Continued ST for pharyngeal strengthening ex, ongoing assessment * Artur Mcgraw MD - 03/29/2022 10:16 AM CDT [facility] Medicine Progress Note Name: Mojgan Tabor [...] - 61* ALT - - - - ALKPHOS - - [...] HLD, PVD,??CVA alcohol abuse, and??cervical osteoarthritis,??who??presented to [facility]IB[facility] from SNF??on 03/08/2022 for??worsening mentation 1. [...] was spent performing care coordination. * Annabelle Watkins, OT - 03/29/2022 8:11 AM CDT [facility] Department of Physical Medicine & Rehabilitation Progress Note Patient: Mojgan Tabor [facility] Record Number: [id number] Date of : 1960 Age: [age] year [...] Mcgraw MD - 03/28/2022 9:54 AM CDT [facility] Medicine Progress Note Name: Mojgan Tabor [...] (CMS/HCC) POA: Unknown PAD (peripheral artery disease) ([facility]/HCC) POA: Unknown Protein calorie malnutrition ([facility]/HCC) POA: Unknown Assessment and Plan: 62 year old male with past medical history significant for HTN, HLD, PVD,??CVA alcohol abuse, and??cervical osteoarthritis,??who??presented to [facility]IB[facility] from SNF??on 03/08/2022 for??worsening mentation 1. [...] HLD, PVD,??CVA alcohol abuse, and??cervical osteoarthritis,??who??presented to [facility]IB[facility] from SNF??on 03/08/2022 for??worsening mentation 1. [...] Alas PT - 03/26/2022 4:06 PM CDT [facility] Department of Physical Medicine & Rehabilitation Progress Note Patient: Mojgan Tabor [facility] Record Number: [id number] Date of : 1960 Age: [age] year old 03/26/22 1600 Therapy on Hold Therapy on Hold Chart Reviewed;Surgery;New Order Required for Therapy * Cami Coughlin SLP - 03/26/2022 3:47 PM CDT [facility] Physical Medicine and Rehabilitation Swallow Treatment Patient: Mojgan Tabor [facility] Record Number: [id number] Date of : 1960 Age: [age] year [...] with PO intake. Recommend patient remain NPO. SKELP PROCESSOR will continue to follow for dysphagia treatment. [...] Impression - Pharyngeal: Severe Treatment/Education/Interventions: While performing SKELP PROCESSOR, Patient was instructed in: oropharyngeal exercises. Patient demonstrated Questionable understanding of instructions given. INFORMED CONSENT TO TREATMENT: Plan of care is discussed but patient with questionable understanding. Short Term Goals Patient will complete oropharyngeal strengthening exercises to improve swallow function. Bottoming Room Inspector Goal (s): Patient to discharge to appropriate next level of inpatient care. Plan: dysphagia treatment Thank you, Cami GARCIA, [facility]-SKELP PROCESSOR Speech Language Pathologist * Snow Ojeda RN - 03/26/2022 1:30 PM CDT TF started at 1330 at rate of 10ml/hr Jevity 1.5 * Ivy Mata RN - 03/26/2022 12:23 PM CDT Case Management Progress Note Anticipated level of care at discharge: Alf - Skilled Facility Basic Needs Assessment (BNA) Score: 14 Anticipated Discharge Date: 03/29/22 Transportation at Discharge: Medicaid Provider Transportation to MD: Medicaid Provider Equipment at Home: Equipment at Home: Wheelchair-Standard Additional DME needed: None Pharmacy benefit: Yes Comments: Tx team continues to work toward safe discharge. PEG tube placed on 03/26/2022; tube feeds started. Pt to continue work with PT/OT/SKELP PROCESSOR. SW and CM continue to monitor for future discharge. Ivy Mata RN, BSN Agile Business Analyst [phone] * Angelina Gould MSW - 03/26/2022 11:10 AM CDT Tuesday Summary Note Discharge Level of Care: SNF Discharge Destination: TBD Phone Number: n/a Fax Number: n/a Insurance Auth: n/a Anticipated Mode of Transportation: ambulance Contacts (Name, relationship, phone #): Adriane Hilliard (sister) [phone] Anticipated DC Date: TBD Pending Needs: pending accepting facility Comments: Radha/DONALDO reviewed referral and unable to accept due to patient's low level of function.SNF referrals pending CLARITA Ochoa Phone [phone] 03/26/2022 * Artur Mcgraw MD - 03/26/2022 10:06 AM CDT [facility] Medicine Progress Note Name: Mojgan Tabor [...] HLD, PVD,??CVA alcohol abuse, and??cervical osteoarthritis,??who??presented to [facility]IB[facility] from SNF??on 03/08/2022 for??worsening mentation 1. [...] Alert, awake Abdomen soft A 24 Fr Rojas-Tunessence Percutaneous gastrostomy tube was freely rotating in [...] Hepatology Fellow Division of Gastroenterology and Hepatology [facility] Associated attestation - Bebe Rowe MD - 03/26/2022 4:02 PM CDT I have seen and examined the patient with the fellow and I agree with the findings and plan of careas documented above. Bebe Rowe MD Supervisor Modern Languagesbalancer at [facility] Customer Field Representative and Advanced Endoscopist Division of Gastroenterology & Hepatology * Ivy Mata RN - 03/26/2022 8:34 AM CDT This contract technical writer received message from Anival Hilliard regarding wanting to get in contact with SW on 03/25/2022. Informed SW and forwarded message. Continue to monitor. Ivy Mata RN, BSN Agile Business Analyst [phone] * Koby Jeffries RN - 03/26/2022 2:42 [...] Jaramillo SLP - 03/25/2022 3:24 PM CDT [facility] Department of Physical Medicine & Rehabilitation Speech Therapy Progress Note Patient: Mojgan Tabor [facility] Record Number: [id number] Date of : 1960 Age: [age] year [...] Alas PT - 03/25/2022 10:45 AM CDT [facility] Physical Medicine and Rehabilitation Physical Therapy Progress Note Patient: Mojgan Tabor Med Record Number: [id number] Date of : 1960 Age: [age] year [...] monitoring of vitals and cognitive stimulation Modified [place]: Current Modified [place] Score: 5 EDUCATION: While performing PT, Patient [...] will transfer bed to/from chair??with maximal assist Retirement Goal(s): Patient to discharge to appropriate next [...] Naylor OT - 03/25/2022 10:45 AM CDT [facility] Physical Medicine and Rehabilitation Occupational Therapy Progress Note Patient: Mojgan Tabor Med Record Number: [id number] Date of : 1960 Age: [age] year [...] ACTIVITY TOLERANCE: Patient's activity tolerance: fair. Modified [place]: Current Modified Florentino Score: 5 TREATMENT/INTERVENTIONS: ADL [...] complete ADL at EOB with Min assist Retirement Goal(s): Patient to discharge to appropriate next [...] with patient's sisters Jaleesa and Adriane and barber or beauty shop manager Ivy. SW and CM discussed with sisters patient's current status re: DC plan, patient has been denied at [facility] and Adriane does not want him to return to [place]. SW discussed that PT/OT is planning to see him today and SW can send those therapy notes to [facility] rehab for them to review, but that if he gets denied he will need SNF. Sisters verbalized understanding, but perseverated multiple times on the denial by [facility], patient's previous baseline/functional status while living in the community, and current medical status. SW and CM attempted to answer their questions re: dispo planning. Leticia wood did agree to SNF referrals and prefer the following facilities: [facility] in [place], [facility], [facility] in [place], and [facility] in [place]. Referrals faxed via [employer]. ASHWIN also notified [place]/[facility] of referral. CLARITA Guzman 03/25/2022 [phone] * Artur Mcgraw MD - 03/25/2022 8:50 AM CDT [facility] Medicine Progress Note Name: Mojgan Tabor [...] HLD, PVD,??CVA alcohol abuse, and??cervical osteoarthritis,??who??presented to [facility]IB[facility] from SNF??on 03/08/2022 for??worsening mentation 1. [...] Thomas SLP - 03/24/2022 1:30 PM CDT [facility] Physical Medicine and Rehabilitation Swallow Treatment Patient: Mojgan Tabor [facility] Record Number: [id number] Date of : 1960 Age: [age] year [...] (Per recent MBS results) Treatment/Education/Interventions: While performing SKELP PROCESSOR, Patient was instructed in: recommendations for NPO [...] to PO intake without risk for aspiration. Retirement Goal (s): Patient to discharge to appropriate [...] Archie Carreno MD Gastroenterology and Hepatology Fellow [facility] * Angelina Gould MSW - 03/24/2022 11:30 AM CDT ASHWIN following for DC planning. ASHWIN spoke with sister Adriane Hilliard via phone re: DC plan. ASHWIN explained to Adriane that [facility] denied patient due to him not [...] that may consider pt, ASHWIN explained that [facility] may be able to evaluate for admission, but their criteria would be the same as [facility]. Adriane agreed for ASHWIN to send referral to [facility], but not to tell them what the other rehab said re: reason for denial. ASHWIN asked Adriane if patient is not a rehab candidate, if she was still planning on him returning to [place]. Adriane stated to ASHWIN that he couldn't [...] busy with other things to be his bilingual social worker . ASHWIN explained that role of ASHWIN while patient is hospitalized is to facilitate a safe DC plan, and that ASHWIN initially sent referrals to [facility] and [place], but that since that [...] - 34 - 61* ALT - - ALKPHOS - - 74 - [...] HLD, PVD,??CVA alcohol abuse, and??cervical osteoarthritis,??who??presented to [facility]BIB[facility]S from SNF??on 03/08/2022 for??worsening mentation 1. [...] Mcgraw MD - 03/23/2022 1:57 PM CDT [facility] Medicine Progress Note Name: Mojgan Tabor [...] HLD, PVD,??CVA alcohol abuse, and??cervical osteoarthritis,??who??presented to [facility]IB[facility]S from SNF??on 03/08/2022 for??worsening mentation 1. [...] continues to follow. Clinical updates sent to [facility]. Unsure of DC date at this [...] Thomas SLP - 03/23/2022 10:28 AM CDT [facility] Physical Medicine and Rehabilitation Swallow Treatment Patient: Mojgan Tabor Med Record Number: [id number] Date of : 1960 Age: [age] year [...] (Per recent MBS results) Treatment/Education/Interventions: While performing SKELP PROCESSOR, Patient was instructed in: recommendations for NPO [...] to PO intake without risk for aspiration. Bottoming Room Inspector Goal (s): Patient to discharge to appropriate [...] in desired activity. Outcome: Progressing * Dina Thomas, JOSIAS - 03/22/2022 2:00 PM CDT [facility] Modified Barium Swallow Patient: Mojgan Tabor [facility] Record Number [id number] Date of : 1960 Age: [age] year [...] 3-5 times perweek to improve swallow function. Retirement Goal(s): Patient to discharge to appropriate next [...] hrs of daily therapy. [facility] once medically appropriate. CLARITA Carson [phone] * Dina Thomas SLP - 03/22/2022 9:13 AM CDT [facility] Physical Medicine and Rehabilitation Swallow Treatment Patient: Mojgan Tabor Med Record Number: [id number] Date of : 1960 Age: [age] year [...] - Pharyngeal: Mild;Moderate (suspected) Treatment/Education/Interventions: While performing SKELP PROCESSOR, Patient and sister were instructed in: goals [...] aspiration. Patient will follow recommended swallowing strategies. 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 Total time spent more than 38 minutes, more than 50% spent for coordinating patient care and counseling about treatment plan. Petra Fuentes MD, MRCP (), FACP Supervisor Modern Languagesbalancer Department of Internal Medicine Feel free to text page me through [employer]. * Mariajose Estrada RN - 03/22/2022 5:19 [...] team Petra Fuentes MD, MRCP (), FACP Supervisor Modern Languagesbalancer Department of Internal Medicine Feel free to text page me through [employer]. * Bety Abdi RN - 03/20/2022 10:27 [...] team Petra Fuentes MD, MRCP ([place]), FACP Supervisor Modern Languagesbalancer Department of Internal Medicine Feel free to text page me through [employer]. * Ciara Jaramillo SLP - 03/19/2022 4:00 PM CDT [facility] Department of Physical Medicine & Rehabilitation Speech Therapy Progress Note Patient: Mojgan Tabor [facility] Record Number: [id number] Date of : 1960 Age: [age] year old 03/19/22 1552 Missed Visit Missed Visit Pt was sleeping soundly at time of speech therapy visit. Pt will be on schedule to be seen on 03/20 for ongoing dysphagia therapy. * Myrna Hammond - 03/19/2022 12:22 PM CDT [employer] followed a pastoral care consult requesting a scrap sorter visit. Patient was asleep, his sister was present in the room. [employer] engaged her in conversation. She spoke of their large family asa good system of support for one another. [employer] provided a pastoral presence and active listening. Pastoral care remains available continuously in the hospital. Myrna Hammond 03/19/2022 12:26 PM * Angelina Gould MSW - 03/19/2022 12:19 PM CDT Tuesday Summary Note Discharge Level of Care: SNF vs acute rehab Discharge Destination: [place] vs [facility] Phone Number: n/a Fax Number: n/a Insurance Auth: will need auth for acute rehab Anticipated Mode of Transportation: ambulance Contacts (Name, relationship, phone #): Adriane Hilliard (sister) [phone] Anticipated DC Date: TBD Pending Needs: Comments: awaiting medical stability, patient from [place] but family interested in [facility] due to new amputation CLARITA Ochoa Phone [phone] 03/19/2022 * Ivy Mata RN - 03/19/2022 11:05 AM CDT Case Management Progress Note Anticipated level of care at discharge: Alf - Skilled Facility Basic Needs Assessment (BNA) Score: 15 Anticipated Discharge Date: 03/25/2022 Transportation at Discharge: Medicaid Provider Transportation to MD: Medicaid Provider Equipment at Home: Equipment at Home: Wheelchair-Standard Additional DME needed: None Pharmacy benefit: Yes Comments: 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 Continue to work with PT/OT. Working with SKELP PROCESSOR to improve swallow function. Possible dc to [facility]. Continues IV abx with EOT 03/25/2022. Continue to monitor forplacement. Ivy Mata RN, BSN Agile Business Analyst [phone] * Baylee Quintero RN - 03/19/2022 10:45 [...] plan. Petra Fuentes MD, MRCP (), FACP Supervisor Modern Languagesbalancer Department of Internal Medicine Feel free to text page me through Gotuit. * Mira Valdez MD - 03/18/2022 3:41 PM CDT [facility] Infectious Diseases Progress Note Admitted on: 03/08/2022 1:54 PM Hospital stay: Day 10 Room: [facility]/ Attending: Petra Fuentes MD Reason for ID F/U: MSSA bacteremia Brief History and Hospital Course: Mojgan Tabor??is a 62??year old?? male??with PMH??of??HTN, HLD, PVD,??CVA (2014), prior head injury (from a fall?), refractory epilepsy,??Alzheimer's (early onset),??alcohol abuse, and??cervical osteoarthritis,??who??presented to [facility]??BIBEMS from SNF??on 03/08/2022 for??worsening mentation.??Family came [...] Jaramillo SLP - 03/18/2022 1:48 PM CDT [facility] Physical Medicine and Rehabilitation Swallow Treatment Patient: Mojgan Tabor Med Record Number: [id number] Date of : 1960 Age: [age] year [...] Impression - Pharyngeal: Moderate Treatment/Education/Interventions: While performing SKELP PROCESSOR, Patient and sister were instructed in: goals [...] aspiration., Patient will follow recommended swallowing strategies. Retirement Goal (s): Patient to discharge to appropriate [...] plan. Petra Fuentes MD, MRCP (), FACP Supervisor Modern Languagesbalancer Department of Internal Medicine Feel free to text page me through Gotuit. * Anna Membreno MD - 03/18/2022 6:21 AM CDT Images from the original note were not included. [facility] Vascular Surgery Consult Note Name: Mojgan Tabor : 1960 Date of Service: 03/18/22 Attending Surgeon: Dr. Membreno Progress Note POD: 3 HPI: This is a 62 year old male with pmh of htn, CVA, HLD, alzheimer, and epilepsy brought to hospital after patient's family noted that he has worsening mental status at half-way. Patient was initially consulted to the vascular [...] 2.3* Recent Labs Component Name 03/17/22 1112 03/16/2261803/14/22220203/14/228 03/12/22 0158 03/11/22 1059 03/03/18 1745 01/30/18 [...] 1.1 No results for input(s): PHART, PO2ART, NJB5FRE, BEART in the last 09048 hours. I/O last 3 completed shifts: In: [...] pelvis. > Dictated by Brandee Celestin MD (vice president investor relations). I, John Graham MD have personally reviewed and interpreted this examination/study. > Interpreting Provider: John Graham MD on 03/09/2022 9:27 AM Review of Systems: Unable to perform ROS due to patient's altered mental status Physical Exam: BP 136/88 Pulse 101 Temp 99.5 ??F (37.5 ??C) (Oral) Resp 16 Ht 6' (1.829 m) Wt 150 lb (68 kg) SpO2 98% Gen: NAD, incomprehensible speech HEENT: [...] attending physician Dr. Membreno. Riky Williamson MD [facility] Vascular Surgery 03/18/2022 6:22 AM Attending/Teaching Physician Documentation I have seen and examined the patient with the resident, independently reviewed lab and imaging results and I agree with the findings and plan of care as documented by the resident. Date of Service isdate of resident signature in resident note * Angelina Gould MSW - 03/17/2022 2:48 PM CDT [facility] continues to follow. PT/OT recs are for SNF, however due to patient's [place] medicaid theray in SNF would be limited. Patient has previously been to [facility] gave referral to [facility] to review to see if patient would be a rehab candidate. CLARITA Guzman 03/17/2022 [phone] * Dina Thomas SLP - 03/17/2022 1:59 PM CDT [facility] Physical Medicine and Rehabilitation Bedside Swallow Re-Assessment Patient: Mojgan Tabor [facility] Record Number: [id number] Date of : 1960 Age: [age] year old Patient Active Problem List: Seizure (CMS/HCC) Cerebrovascular accident ([facility]/HCC) Hyperlipidemia Hypertension Insomnia Low back pain Osteoporosis Truncal ataxia Therapeutic procedure Seizures ([facility]/HCC) Alcohol abuse, uncomplicated Benign neoplasm of prostate Epilepsy, unspecified, not intractable, without status epilepticus ([facility]) Difficulty in walking, not elsewhere classified Muscle weakness (generalized) Other specified rheumatoid arthritis, unspecified site ([facility]) Syncope and collapse Alzheimer's disease with early onset ([facility]) Cognitive communication deficit COVID-19 Dysphagia, oropharyngeal phase Hemiplegia and 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- dominant side ([facility]) History of CVA (cerebrovascular accident) Paroxysmal tachycardia, unspecified ([facility]/HCC) Status epilepticus ([facility]) Acute encephalopathy Sepsis without acute organ dysfunction ([facility]) Bacteremia Pneumonia Ulcer of left foot ([facility]) PAD (peripheral artery disease) ([facility]) Protein calorie malnutrition ([facility]) Past Medical History: Diagnosis Date ??? CVA (cerebral vascular accident) ([facility]) ??? HTN (hypertension) ??? Seizure ([facility]) In addition to the 1:1 evaluation of [...] Impression - Pharyngeal: Moderate Education/Interventions: While performing SKELP PROCESSOR, Patient was instructed in: recommendations for NPO status given patient's elevated aspiration risk. Patient demonstrated Questionable understanding of instructions given. Physician and Nurse contacted regarding results of swallow evaluation and recommendations. INFORMED CONSENT TO TREATMENT: Plan of care is discussed but patient with questionable understanding. Short Term Goals Patient will demonstrate an improvement in oropharyngeal swallow function to warrant diet upgrade. Bottoming Room Inspector Goal (s): Patient to discharge to appropriate next level of inpatient care. Plan: Dysphagia tx for ongoing assessment * Elmo Lawrence, - 03/17/2022 1:50 PM CDT Neurology Progress Note Patient: Mojgan Tabor Age: [age] year old Admission Date and Time: 03/08/2022 Reason for consult: concern for sz activity History of Presenting Illness: Mojgan Taobr is a 62 year old male Pt is a 62 y/o m with a pmhx of HTN, HLD, PVD, CVA (2015), refractory epilepsy, Alzheimer's (early onset), alcohol abuse, and cervical osteoarthritis. Neurology was consulted due to a SLIDE MAKER paged for unresponsiveness. At 1012 on 03/16/22 [...] osteoarthritis. Neurology was consulted due to a SLIDE MAKER page for unresponsiveness, concern for sz activity. [...] Street, OT - 03/17/2022 11:20 AM CDT [facility] Physical Medicine and Rehabilitation Occupational Therapy Initial Evaluation Note Patient: Mojgan Tabor [facility] Record Number: [id number] Date of : 1960 Age: [age] year [...] Active Problem List: Seizure (CMS/HCC) Cerebrovascular accident ([facility]) Hyperlipidemia Hypertension Insomnia Low back pain Osteoporosis Truncal ataxia Therapeutic procedure Seizures ([facility]/HCC) Alcohol abuse, uncomplicated Benign neoplasm of prostate Epilepsy, unspecified, not intractable, without status epilepticus ([facility]/HCC) Difficulty in walking, not elsewhere classified Muscle weakness (generalized) Other specified rheumatoid arthritis, unspecified site ([facility]) Syncope and collapse Alzheimer's disease with early onset ([facility]) Cognitive communication deficit COVID-19 Dysphagia, oropharyngeal phase Hemiplegia and 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- dominant side ([facility]) History of CVA (cerebrovascular accident) Paroxysmal tachycardia, unspecified ([facility]/HCC) Status epilepticus ([facility]/HCC) Acute encephalopathy Sepsis without acute organ dysfunction ([facility]) Bacteremia Pneumonia Ulcer of left foot ([facility]/HCC) PAD (peripheral artery disease) ([facility]/HCC) Protein calorie malnutrition ([facility]/HCC) Past Medical History: Diagnosis Date ??? CVA (cerebral vascular accident) ([facility]/HCC) ??? HTN (hypertension) ??? Seizure ([facility]/HCC) SUBJECTIVE: Subjective: How are you doing PATIENT GOALS: Patient's Primary Concern: None stated by patient Home Situation: Type of Residence: Alf Equipment at Home: Wheelchair-Standard Prior Level of [...] complete ADL at EOB with Min assist Retirement Goal(s): Patient to discharge to appropriate next [...] Crawford, PT - 03/17/2022 11:15 AM CDT [facility] Physical Medicine and Rehabilitation Physical Therapy Re-Evaluation Note Patient: Mojgan Tabor Med Record Number: [id number] Date of : 1960 Age: [age] year old Patient from [facility], new PT orders received. Re-eval indicated due [...] goals stated Home Situation: Type of Residence: Alf Equipment at Home: Wheelchair-Standard Prior Level of [...] LLE: L AKA, hip WFL Strength: RLE: 1/ Unable to participate in further objective testing [...] monitoring of vitals and cognitive stimulation Modified [place]: Current Modified Florentino Score: 5 EDUCATION: While [...] transfer bed to/from chair with maximal assist Bottoming Room Inspector Goal(s): Patient to discharge to appropriate next [...] family in room, with RNVerito aware. * Otto Mcrae MD - 03/17/2022 10:57 AM CDT [facility] Vascular Surgery Consult Note Name: Mojgan Tabor : 1960 Date of Service: 03/17/22 Attending Surgeon: Dr. Membreno Progress Note POD: 1 HPI: This is a 62 year old male with pmh of htn, CVA, HLD, alzheimer, and epilepsy brought to hospital after patient's family noted that he has worsening mental status at half-way. Patient was initially consulted to the vascular [...] Data: Labs: Recent Labs Component Name 03/16/22 0619 03/14/22 2203 03/14/22457 WBC 8.9 10.1 9.2 HGB 10.0* 11.4* [...] 1.1 No results for input(s): PHART, PO2ART, QKU3IRI, BEART in the last 55640 hours. I/O last 3 completed shifts: In: [...] pelvis. > Dictated by Brandee Celestin MD (vice president investor relations). I, John Graham MD have personally reviewed [...] seen and discussed with my in warehouse consultant Dr. Koenig and attending physicianDr. Membreno. Otto Mcrae MD 03/17/2022 10:59 AM * Marcella Terrell - 03/17/2022 10:10 AM CDT Discharge Field Property Loss Specialist received request from Lakesha Francis APRN to arrange follow- up appointment for Patient with Vascular. This contract technical writer called [phone] and spoke with Yana. Field Property Loss Specialist was able to obtain follow-up appointment for Patient with Dr. Membreno on March at 10:00 am.No further follow-up needs from blasting contract miner indicated at this time. Marcella Terrell, Discharge Field Property Loss Specialist 03/17/2022 * Ezio Sorto RD/ONI - 03/17/2022 [...] Physician: none. Comments: Pt scheduled for reassessment. SLIDE MAKER was paged yesterday for pt becoming unresponsive. Currently on puree diet, SKELP PROCESSOR on board. NO PO intake documented x [...] formulations are not available to order at [facility], communicated with pharmacy Pending Vimpat and Onfi [...] plan. Petra Fuentes MD, MRCP (), FACP Supervisor Modern Languagesbalancer Department of Internal Medicine Feel free to text page me through Gotuit. * Sarah Rodriguez RN - 03/16/2022 10:55 [...] CDT SW continues to follow. Patient from [facility] but family is interested in patient going to [facility] as he has been there previously. Patient will need new PT/OT notes since surgery on 03/15. CLARITA Guzman 03/16/2022 [phone] * Annabelle Watkins OT - 03/16/2022 9:50 AM CDT [facility] Department of Physical Medicine & Rehabilitation Progress Note Patient: Mojgan Tabor [facility] Record Number: [id number] Date of : 1960 Age: [age] year [...] Vitals assessed and RN notified, RN and escalator attendant came to bedside and initiated rapid response. OT will continue to follow and re-attempt evaluation as appropriate. * Ivy Crawford PT - 03/16/2022 9:50 AM CDT [facility] Department of Physical Medicine & Rehabilitation Progress Note Patient: Mojgan Tabor Med Record Number: [id number] Date of : 1960 Age: [age] year [...] RN notified and arrived to room with chargemaster specialist, RR called. Cancel PT for this date, will follow up with pt 03/17. * Anna Membreno MD - 03/16/2022 7:56 AM CDT [facility] Vascular Surgery Consult Note Name: Mojgan Tabor : 1960 Date of Service: 03/16/22 Attending Surgeon: Dr. Membreno Progress Note POD: 1 HPI: This is a 62 year old male with pmh of htn, CVA, HLD, alzheimer, and epilepsy brought to hospital after patient's family noted that he has worsening mental status at half-way. Patient was initially consulted to the vascular [...] 1.1 No results for input(s): PHART, PO2ART, [id number], BEART in the last 76648 hours. I/O last 3 completed shifts: In: [...] pelvis. > Dictated by Brandee Celestin MD (vice president investor relations). I, John Graham MD have personally reviewed [...] seen and discussed with my in warehouse consultant Dr. Koenig and attending physicianDr. Membreno. Otto [...] plan. Petra Fuentes MD, MRCP ([place]), FACP Supervisor Modern Languagesbalancer Department of Internal Medicine Feel free to text page me through Gotuit. * Sarah Rodriguez RN - 03/16/2022 3:38 [...] Valdez MD - 03/15/2022 2:53 PM CDT [facility] Infectious Diseases Progress Note Admitted on: 03/08/2022 1:54 PM Hospital stay: Day 7 Room: 610/01 Attending: Blair Mojica MD Reason for ID f/u: MSSA bacteremia Brief History and Hospital Course: Mojgan Tabor??is a 62??year old?? male??with PMH??of??HTN, HLD, PVD,??CVA (2014), prior head injury (from a fall?), refractory epilepsy,??Alzheimer's (early onset),??alcohol abuse, and??cervical osteoarthritis,??who??presented to [facility]??BIBEMS from SNF??on 03/08/2022 for??worsening mentation.??Family came [...] 94.4 97.4 BMP: Recent Labs Component Name 03/14/223 03/14/228 03/13/22 0419 03/12/22 0158 03/11/22 1059 [...] for HSQ DVT prophylaxis. Riky Williamson MD [facility] Vascular Surgery 03/15/2022 12:15 PM * Annabelle Watkins OT - 03/15/2022 11:45 AM CDT [facility] Department of Physical Medicine & Rehabilitation Progress Note Patient: Mojgan Tabor Med Record Number: [id number] Date of : 1960 Age: [age] year old 10/17/22 1105 Therapy on Hold Therapy on Hold Surgery;Chart Reviewed;New Order Required for Therapy Please reorder as indicated post-op * Meredith Ray PT - 03/15/2022 11:44 AM CDT [facility] Department of Physical Medicine & Rehabilitation Patient: Mojgan Tabor [facility] Record Number: [id number] Date of : 1960 Age: [age] year old 03/15/22 1100 Therapy on Hold Therapy on Hold Surgery;New Order Required for Therapy * Dina Thomas SLP - 03/15/2022 10:00 AM CDT [facility] Department of Physical Medicine & Rehabilitation Progress Note Patient: Mojgan Tabor [facility] Record Number: [id number] Date of : 1960 Age: [age] year [...] Given - Contrast 03/15/2022 Vancomycin Administrations from [facility] [...] only for bacteremia course Please contact the [facility] pharmacy department ([phone]) with any questions. Rickie Shelton Jr., PharmD 03/15/2022 9:39 AM Resources: Vancomycin Protocol * Anna Membreno MD - 03/15/2022 7:49 AM CDT Plan for left aka today in operating room * Anna Membreno MD - 03/15/2022 7:40 AM CDT [facility] Vascular Surgery Consult Note Name: Mojgan Tabor : 1960 Date of Service: 03/15/22 Attending Surgeon: Dr. Membreno Reason for Consult: Left Foot wound HPI: This is a 62 year old male with pmh of htn, CVA, HLD, alzheimer, and epilepsy brought to hospital after patient's family noted that he has worsening mental status at half-way. Patient was initially consulted to the vascular [...] (cerebral vascular accident) (CMS/HCC) HTN (hypertension) Seizure ([facility]) No past surgical history on file. No [...] 2.3* 2.3* 2.8 Recent Labs Component Name 03/14/22220203/14/2245703/13/2241803/12/2203/11/22 1059 03/10/22 1147 03/09/22 0411 03/03/18 1745 [...] 1.1 No results for input(s): PHART, PO2ART, KAX1RMV, BEART in the last 16573 hours. I/O last 3 completed shifts: In: [...] pelvis. > Dictated by Brandee Celestin MD (vice president investor relations). I, John Graham MD have personally reviewed [...] seen and discussed with my in warehouse consultant Dr. Koenig and attending physicianDr. Membreno. Otto [...] care at this time Blair Mojica MD [facility] Medicine 03/15/2022 Feel free to text page me through Gotuit, login GiveForward Current Meds ??? 0.9% NaCl 3 mL [...] care at this time Blair Mojica MD [facility] Medicine 03/14/2022 Feel free to text page me through [email or web address], login [email or web address] Current Meds ??? 0.9% NaCl [...] Mancia MD - 03/14/2022 7:06 AM CDT [facility] Infectious Diseases Progress Note Admitted on: 03/08/2022 1:54 PM Hospital stay: Day 6 Room: 610/01 Attending: Blair Mojica MD Reason for ID consultation: MSSA bacteremia Brief History and Hospital Course: Mojgan Tabor??is a 62 year old?? male??with PMH of HTN, HLD, PVD, CVA (2014), priorhead injury (from a fall?), refractory epilepsy, Alzheimer's (early onset), alcohol abuse, and cervical osteoarthritis, who presented to [facility] from [facility] on 03/08/2022 for worsening mentation. Family came [...] (L)). Recent Labs Component Name 03/11/22 1059 03/09/2241003/08/22 1455 ALT 26 27 26 AST 60* [...] Mancia M.D. Infectious Diseases (Team 2) Pager [phone] * Phyllis Rangel RN - 03/14/2022 2:10 AM CDT Patient have left upper extremity cold ,pulse present and other vitals stable,Dr Musa Gruber notified. * Nevaeh Valera, [facility] - 03/13/2022 11:30 PM CDT Vancomycin Per [...] monitor patient's renal function. Please contact the [facility] pharmacy department ([phone]) with any questions. Nevaeh Valera RPH 03/13/2022 [...] and reassess current regimen Nevaeh Valera RPH [facility] Department of Pharmacy * Ciara Jaramillo SLP - 03/13/2022 1:10 PM CDT [facility] Physical Medicine and Rehabilitation Bedside Swallow Assessment Patient: Mojgan Tabro [facility] Record Number: [id number] Date of : 1960 Age: [age] year [...] Impression - Pharyngeal: Mild Education/Interventions: While performing SKELP PROCESSOR, Patient and family members were instructed in: [...] aspiration., Patient will follow recommended swallowing strategies. Bottoming Room Inspector Goal (s): Patient to discharge to appropriate [...] Feel free to text page me through Gotuit, login [email or web address] Current Meds ??? 0.9% NaCl [...] Watkins, OT - 03/12/2022 2:14 PM CDT [facility] Physical Medicine and Rehabilitation Occupational Therapy Initial Evaluation Note Patient: Mojgan Tabor [facility] Record Number: [id number] Date of : 1960 Age: [age] year [...] of tx Home Situation: Type of Residence: Alf (SNF) Equipment at Home: Wheelchair-Standard Prior Level [...] sit with moderate assist and X 2 Retirement Goal(s): Patient to discharge to appropriate next [...] (Name, relationship, phone #): Adriane Hilliard (sister) [phone] Anticipated DC Date: TBD Pending Needs: n/a Comments: anticipate return to SNF when medically cleared CLARITA Ochoa Phone [phone] 03/12/2022 * Ivy Crawford, PT - 03/12/2022 9:46 AM CDT [facility] Physical Medicine and Rehabilitation Physical Therapy Initial Evaluation Note Patient: Mojgan Tabor [facility] Record Number: [id number] Date of : 1960 Age: [age] year [...] left foot (CMS/HCC) PAD (peripheral artery disease) ([facility]/HCC) Protein calorie malnutrition ([facility]/HCC) Past Medical History: Diagnosis Date ??? CVA (cerebral vascular accident) (CMS/HCC) ??? HTN (hypertension) ??? Seizure ([facility]/HCC) SUBJECTIVE: Subjective: I used a wheelchair. Pt agreeable to therapy. PATIENT GOALS: Patient's Primary Concern: To get warm. Home Situation: Type of Residence: Alf (SNF) Equipment at Home: Wheelchair-Standard Prior Level [...] transfer bed to/from chair with maximal assist Retirement Goal(s): Patient to discharge to appropriate next [...] care at this time Blair Mojica MD [facility] Medicine 03/12/2022 Feel free to text page me through Gotuit, login GiveForward Current Meds ??? 0.9% NaCl 3 mL [...] monitor patient's renal function. Please contact the [facility] pharmacy department ([phone]) with any questions. Marilynn Hyman PharmD 03/12/2022 [...] the flowsheet documentation) Outcome: Progressing * Susan Sosa, ALFRED - 03/11/2022 1:50 PM CDT Images from [...] Terrell - 03/11/2022 1:09 PM CDT Discharge Field Property Loss Specialist received request from Lakesha Francis APRN to arrange follow- up appointment for Patient with Vascular. This contract technical writer called [phone] and spoke with Yana. Field Property Loss Specialist was able to obtain follow-up appointment for Patient with Dr. Membreno on Thursday March 24, 2022 at 10:45 am.No further follow-up needs from blasting contract miner indicated at this time. Marcella Terrell, Discharge Field Property Loss Specialist 03/11/2022 * Shakila Medina OT - 03/11/2022 11:26 AM CDT [facility] Department of Physical Medicine & Rehabilitation Progress Note Patient: Mojgan Tabor [facility] Record Number: [id number] Date of : 1960 Age: [age] year old 03/11/22 1100 Missed Visit Missed Visit MD Rai (decreased responsiveness at bedside) Will re-initiate OT eval as appropriate and schedule allows. * Simona Ramirez, PT - 03/11/2022 10:33 AM CDT [facility] Department of Physical Medicine & Rehabilitation Progress Note Patient: Mojgan Tabor [facility] Record Number: [id number] Date of : 1960 Age: [age] year [...] Feel free to text page me through [employer], login [employer] Current Meds ??? 0.9% NaCl 3 mL [...] Last dc in 12/2021 pt discharged to [facility]. Continue to monitor for placement. Ivy Mata RN, BSN Agile Business Analyst [phone] * Ivy Mata, RN - 03/10/2022 1:49 PM CDT Case Management Initial Assessment Case Management screen completed & Welcome Letter given. Anticipated level of care at discharge: Alf - Skilled Facility Discharge Plans: Family wants [...] Emergency Contact: Adriane Hilliard Mobile Relation: Sister Line Fisher needed? 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 Will continue to follow. For any questions or needs please contact: Agile Business Analyst Name/Phone number: Ivy Mata RN [phone] * Suzan Hope MD - 03/10/2022 1:27 PM CDT General Neurology Progress Note Hospital Course: 62yo M who was brought in from half-way due to 'worsening mental status.' Per chart, the patient has dementia and is not functional at baseline. At [facility], patient found to be tachycardic and febrile with pneumonia and bacteremia. No witnessed seizure or seizure-like activity noted. ?? Of note, patient has a history of refractory focal epilepsy and follows in [facility] epilepsy clinic. Hewas last seen in clinic on 02/16/22 where anti-seizure regimen (listed below in meds) were not changed. He was also admitted to the epilepsy monitoring unit from 12/21-01/07 to quantify seizure burden. During this admission, he had frequent subclinical electrographic seizures. Clobazam was added and valproic acid was increased and patient was discharged to a fci facility. Overnight: No events concerning for seizures [...] Jr., PharmD - 03/10/2022 12:45 PM CDT [facility] Pharmacy Medication History Note The current home/prior to admission (LOCATION DIRECTOR) medication list has been reviewed by a [...] please do not hesitate to contact the [facility] pharmacy dept ([id number]). Thank you. Assessment Completed by: Rickie Shelton [...] nutrient needs Outcome: Progressing * Dina Thomas, SKELP PROCESSOR - 03/10/2022 10:56 AM CDT [facility] Physical Medicine and Rehabilitation Swallow Treatment Patient: Mojgan Tabor [facility] Record Number: [id number] Date of : 1960 Age: [age] year [...] Pharyngeal: No dysphagia suspected Education/Interventions: While performing SKELP PROCESSOR, Patient was instructed in: results of swallow evaluation, diet/liquid recommendations and swallowing strategies/aspiration precautions. Patient demonstrated Fair understanding of instructions given. Physician instructed in recommendations and indicated understanding. INFORMED CONSENT TO TREATMENT: Plan of care including recommended therapy, goals and frequency, discussed with patient who understands and agrees to proceed. Short Term Goals Patient will tolerate recommended diet w/o aspiration. Bottoming Room Inspector Goal (s): Patient to be independent/baseline with [...] Feel free to text page me through Gotuit, login [facility] Meds ??? 0.9% NaCl 3 mL Intracatheter [...] (Sister). -Patient needs in a NH from [facility] due to uncontrollable seizures. Was getting [...] 2.8 2.8 3.0 Recent Labs Component Name 03/09/2203/08/22 1455 03/05/22 1441 NA 144 143 142 [...] - 86 88 AST 75* 74* - 14 - 18 23 ALT 27 [...] Dr. Membreno 03/10. They asked the inpatient MANAGER DIVISION to see patient. -called vascular team: stated [...] the patient, family and consults. * Dina Thomas SLP - 03/09/2022 11:49 AM CDT [facility] Physical Medicine and Rehabilitation Bedside Swallow Assessment Patient: Mojgan Tabor [facility] Record Number: [id number] Date of : 1960 Age: [age] year [...] Impression - Pharyngeal: Moderate Education/Interventions: While performing SKELP PROCESSOR, Patient was instructed in: recommendations for NPO status given patient's elevated aspiration risk. Patient demonstrated Poor understanding of instructions given. INFORMED CONSENT TO TREATMENT: Plan of care including recommended therapy, goals and frequency, discussed with patient who understands and agrees to proceed. Short Term Goals Patient will demonstrate an improvement in oropharyngeal swallow function to warrant diet upgrade. Bottoming Room Inspector Goal (s): Patient to be independent/baseline with [...] Given - Contrast 03/08/2022 Vancomycin Administrations from [facility] (last 72 hours) Date/Time Action Medication Dose Rate 03/08/22 3549 $ New Bag vancomycin (Vancocin) 1,750 mg [...] monitor patient's renal function. Please contact the [facility] pharmacy department ([id number]) with any questions. Cory Apple, Savi 03/09/2022 [...] Epilepsy, unspecified, not intractable, without status epilepticus ([facility]) 05/25/2019 Priority: High ??? Hemiplegia and 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-dominant side ([facility]) 05/25/2019 Priority: High ??? Alzheimer's disease with early onset ([facility]) 05/17/2019 Priority: High ??? Paroxysmal tachycardia, unspecified ([facility]) 05/16/2019 Priority: High ??? Alcohol abuse, uncomplicated 08/13/2015 Priority: High ??? Benign neoplasm of prostate 06/26/2015 Priority: High ??? Other specified rheumatoid arthritis, unspecified site ([facility]) 06/26/2015 Priority: High ??? Syncope and collapse 06/26/2015 Priority: High ??? Bacteremia 03/11/2022 Priority: Not Prioritized ??? Pneumonia 03/11/2022 Priority: Not Prioritized ??? Ulcer of left foot ([facility]) 03/11/2022 Priority: Not Prioritized ??? PAD (peripheral artery disease) ([facility]) 03/11/2022 Priority: Not Prioritized ??? Protein calorie malnutrition ([facility]) 03/11/2022 Priority: Not Prioritized ??? Sepsis without acute organ dysfunction ([facility]) 03/08/2022 Priority: Not Prioritized ??? Status epilepticus ([facility]) 12/30/2021 Priority: Not Prioritized ??? Acute encephalopathy 12/30/2021 Priority: Not Prioritized ??? Seizures ([facility]) 08/13/2020 Priority: Not Prioritized ??? Therapeutic procedure Priority: Not Prioritized ??? Cerebrovascular accident ([facility]) 06/13/2019 Priority: Not Prioritized ??? Insomnia 06/13/2019 Priority: Not Prioritized ??? Low back pain 06/13/2019 Priority: Not Prioritized ??? Osteoporosis 11/22/2018 Priority: Not Prioritized ??? Seizure ([facility]) 10/13/2017 Priority: Not Prioritized ??? [...] Hepatology Fellow Division of Gastroenterology and Hepatology [facility] * Neha Palomino MD - 03/09/2022 [...] QTC Calculation (Bezet) 446 ms Calculated P Curtis 88 degrees Calculated R Curtis 22 degrees Calculated T Curtis 93 degrees Interpretation EKG SINUS TACHYCARDIA WITH OCCASIONAL PREMATURE VENTRICULAR COMPLEXES POSSIBLE LEFT ATRIAL ENLARGEMENT 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) ABNORMAL ECG WHEN COMPARED WITH ECG OF 30-DEC-2021 11:06, PREMATURE VENTRICULAR COMPLEXES ARE NOW PRESENT VENT. RATE HAS INCREASED BY [address] NO LONGER ELEVATED IN INFERIOR LEADS ST NO LONGER ELEVATED IN ANTERIOR LEADS Confirmed by SIRENA MARCELO MD ([id number]) on 03/08/2022 2:48:22 PM Procedure and Consults [facility] (From admission, onward) Start Ordered 03/08/22 [...] Raymundo DO - 03/17/2022 9:47 AM CDT [facility] EEG REPORT Patient Name: Mojgan Tabor EEG#: [id number] Recording Start Time: 15:01 PM 03/16/2022 Epoch [...] of electrographic activity comprising of right frontotemporal iavax-yfu-avop waves of 1 Hz with admixed diffuse [...] to put on record. * Sean Raymundo, DO - 03/12/2022 1:03 PM CDT EEG [...] artifact. Epileptiform discharges in the form of qcbny-xub-hqjk wave complexes were occasionally identified over the [...] access for enteral feeding. Pt presented to [facility] on 03/08 by his family for [...] 34 - - 35* - 60* ALT - - ALKPHOS 73 - - 73 [...] increase likelihood of poor wound healing. Per SKELP PROCESSOR evaluation pt severe risk for aspiration and [...] sister/M, and from there obtain consent from [facility]. Timing of PEG placement TBD. Please ensure [...] Archie Carreno MD Gastroenterology & Hepatology Fellow [facility] INAL BLOCK ASSEMBLER * Ezio Sorto, RD/LD - 03/23/2022 10:38 AM CDTAssociated Order(s): IP CONSULT TO NUTRITIONAL SERV Clinical Nutrition Brief Note Nutrition Recommendations: NPO per SKELP PROCESSOR TF recommendation if pt/family agree to EN [...] osteoarthritis. Neurology was consulted due to a SLIDE MAKER paged for unresponsiveness. At 1012 on 03/16/22 [...] osteoarthritis. Neurology was consulted due to a SLIDE MAKER page for unresponsiveness, concern for sz activity. [...] Epilepsy, unspecified, not intractable, without status epilepticus ([facility]) 05/25/2019 Priority: High Bacteremia 03/11/2022 Priority: Not Prioritized Pneumonia 03/11/2022 Priority: Not Prioritized Ulcer of left foot ([facility]) 03/11/2022 Priority: Not Prioritized PAD (peripheral artery disease) ([facility]) 03/11/2022 Priority: Not Prioritized Protein calorie malnutrition ([facility]) 03/11/2022 Priority: Not Prioritized Sepsis without acute organ dysfunction ([facility]) 03/08/2022 Priority: Not Prioritized Hypertension 07/24/2015 Priority: [...] CDTAssociated Order(s): IP CONSULT TO VASCULAR SURGERY [facility] Vascular Surgery Consult Note Name: Mojgan Tabor : 1960 Date of Service: 03/12/22 Attending Surgeon: Dr. Membreno Reason for Consult: Left Foot wound HPI: This is a 62 year old male with pmh of htn, CVA, HLD, alzheimer, and epilepsy brought to hospital after patient's family noted that he has worsening mental status at half-way. Patient was initially consulted to the vascular [...] History: Diagnosis Date CVA (cerebral vascular accident) ([facility]) HTN (hypertension) Seizure ([facility]) No past surgical history on file. No [...] AST - 60* - 75* 74* - 23 ALT - 26 - 27 26 - 10 - 9 11 ALKPHOS - 71 - 74 84 - 75 - 86 88 - = values in this interval not displayed. Recent Labs Component Name 03/11/22 1059 03/05/22 1110 02/25/21 1134 INR 1.2 1.0 1.1 No results for input(s): PHART, PO2ART, LTL5ERY, BEART in the last 81162 hours. I/O last 3 completed shifts: In: [...] pelvis. > Dictated by Brandee Celestin MD (vice president investor relations). I, John Graham MD have personally reviewed [...] seen and discussed with my in warehouse consultant Dr. Koenig and attending physicianDr. Membreno. Otto [...] from the original note were not included. [facility] Infectious Diseases Consultation Patient Name: Mojgan Tabor 1960 Room: [facility] Date of Admission: 03/08/2022 Date of Service: 03/11/2022 Primary Care Physician: Joyce Luevano APRN-BOG CUTTER Attending Physician: Blair Mojica MD Reason for consultation: MSSA bacteremia HPI: Mojgan Tabor??is a 62 year old?? male??with PMH of HTN, HLD, PVD, CVA (2014), priorhead injury (from a fall?), refractory epilepsy, Alzheimer's (early onset), alcohol abuse, and cervical osteoarthritis, who presented to [facility] from SNF on 03/08/2022 for worsening mentation. [...] tablets by mouth every 12 hours 02/16/22 aYna Rm APRN-CNP Multiple Vitamin (One Daily Multivitamin [...] M.D., PhD. Infectious Diseases (Team 2) Pager [phone] * Angelina Gould MSW - 03/11/2022 10:50 AM CDTAssociated Order(s): IP CONSULT TO CIRCUIT BOARD ASSEMBLER Facility Admission Note Admitted From: [place] [facility] Level of Care (Skilled, Residential, Assisted, Usp, Senior Living): prison Primary Payor at Facility: Raf Vargas patient Return: Yes Facility Contact: Myra/admissions [phone] Physician Following at Facility: Does Patient/Family want them to Return?: Yes Family/Support Name/Contact: Adriane Hilliard (sister) [phone] Number of Skilled Days Used (if applicable): n/a Prior Level of Functioning: Uses w/c Disposition/Anticipated Level of Care at Discharge: prison Anticipated mode of transport: ambulance Special Testing Requirements: Comments: Per conversation with barber or beauty shop manager, family would like if patient could go to rehab at [facility] again if possible Name/Phone number: CLARITA Ochoa [phone] * Ezio Sorto, RD/LD - 03/10/2022 9:51 AM CDTAssociated Order(s): IP CONSULT TO NUTRITIONAL SERV Initial Nutrition Assessment Brief Synopsis: Patient is dx with malnutrition; Specific criteria can be found in assessment below Nutrition Plan: NPO now Further diet per SKELP PROCESSOR Add Ensure Plus High Protein (1.5 kcal) [...] wasting noted. Meets the severe malnutrition criteria. SKELP PROCESSOR recommended NPO yesterday. See TF recs above [...] Pain affecting intake: No Estimated Needs: KCAL: 2040 (30kcal/kg ABW) Protein (g): [...] 62yo M who was brought in from half-way due to 'worsening mental status.' Per chart, the patient has dementia and is not functional at baseline. At [facility], patient found to be tachycardic and febrile with pneumonia and bacteremia. No witnessed seizure or seizure-like activity noted. Of note, patient has a history of refractory focal epilepsy and follows in [facility] epilepsy clinic. Hewas last seen in clinic on 02/16/22 where anti-seizure regimen (listed below in meds) were not changed. He was also admitted to the epilepsy monitoring unit from 12/21-01/07 to quantify seizure burden. During this admission, he had frequent subclinical electrographic seizures. Clobazam was added and valproic acid was increased and patient was discharged to a fci facility. Medical Hx- hypertension, CVA, hyperlipidemia, Alzheimer's [...] refractory epilepsy. He was transferred from his half-way withworsening mental status. He has a history of dementia. He is found to be tachycardic and febrile and work-up revealed pneumonia and bacteremia. This is being treated currently. Evidently he has been compliant with his seizure medications. Current Facility-Administered Medications Medication Dose Route Frequency Provider Last Rate Last Admin 0.9% NaCl injection 3 mL 3 mL Intracatheter q8h Jack Trent, DO 3 mL at 03/10/22 0601 And 0.9% NaCl injection 1-10 mL 1-10 mL Intracatheter PRN Jack Trent, DO acetaminophen (Tylenol) suppository 650 mg 650 mg Rectal q6h PRN Jack Trent, DO amLODIPine (Norvasc) tablet 5 mg 5 [...] CDTAssociated Order(s): IP CONSULT TO VASCULAR SURGERY [facility] Vascular Surgery Consult Note Name: Mojgan Tabor : 1960 Date of Service: 03/09/22 Attending Surgeon: Dr. Membreno Reason for Consult: LLE 2nd and 3rd toe wounds HPI: This is a 62 year old male with pmh of htn, CVA, HLD, alzheimer, and epilepsy brought to hospital after patient's family noted that he has worsening mental status at half-way. Patient was diagnosed w/ pneumonia and he is septic with an elevated WBC, lactic, tachycardia, and fever. He had an appointment to take a look at his left lower extremity on 03/10/[address] Membreno as she had previously done angiogram w/ angioplasty of LLE AT and SFA. Past Medical History: Diagnosis Date CVA (cerebral vascular accident) ([facility]) HTN (hypertension) Seizure (CMS/HCC) No past surgical [...] 1.0 No results for input(s): PHART, PO2ART, BBK2QUU, BEART in the last 36297 hours. I/O last 3 completed shifts: In: [...] the abdomen or pelvis. > Dictated by Brnadee Celestin MD (vice president investor relations). I, John Graham MD have personally reviewed [...] seen and discussed with my in warehouse consultant Dr. koenig and attending physicianDr. Membreno. Riky Williamson MD Resident Physician [facility] Department of Surgery 03/09/2022 2:24 PM [...] Left above-knee amputation. SURGEON: Anna Membreno M.D. TONGUER: Brian Carmona M.D. and Riky Williamson M.D. [...] Urine output was none. 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 She is [...] Date: 03/10/22 Time: 1:50 AM * Jack Trent DO - 03/08/2022 2:59 PM CDT CC AMS HISTORY 62 year old year old male with hx as below including Alcohol use disorder, alzheimer's, [place] after family visited today and found the [...] lower leg: No edema. Comments: Left distal drip box tender to palpation Lymphadenopathy: Cervical: No cervical [...] to previously reported susceptibility testing, specimen number: [id number] MRSA DNA PCR - Abnormal; Notable for [...] Change in Procalcitonin Calculator is available at [email or web address] If clinical picture has not improved and [...] acid amplification assay performance was validated by [facility]. This test has been authorized by [...] DATE/TIME OF EXAM: 03/11/2022 11:15 AM, LOCATION [facility] INDICATION: R78.81: Bacteremia ADDITIONAL CLINICAL INFORMATION: Ordering [...] DATE/TIME OF EXAM: 03/10/2022 4:04 PM, LOCATION [facility] INDICATION: G93.40: Acute encephalopathy EXAMINATION: Computed tomography [...] DATE/TIME OF EXAM: 03/08/2022 10:05 PM, LOCATION [facility] INDICATION: [...] pelvis. > Dictated by Brandee Celestin MD (vice president investor relations). I, John Shoela, MD have personally reviewed and interpreted this examination/study. > Interpreting Provider: John Graham MD on 03/09/2022 9:27 AM XR FOOT LEFT 3VW OR MORE Final Result PROCEDURE: XR FOOT LEFT 3VW OR MORE, DATE/TIME OF EXAM: 03/08/2022 3:38 PM, LOCATION [facility] INDICATION: [...] noted. Report dictated by Param Eubanks MD (vice president investor relations). Eron Thomason have personally reviewed and interpreted this examination/study. > Interpreting Provider: Eron Payton on 03/08/2022 4:48 PM XR CHEST 1VW PORTABLE Final Result PROCEDURE: XR CHEST 1VW PORTABLE, DATE/TIME OF EXAM: 03/08/2022 3:14 PM, LOCATION [facility] INDICATION: R50.9: Fever, unspecified fever cause ADDITIONAL CLINICAL INFORMATION: Ordering Provider Reason For Exam: infection? SOB COMPARISON: 05/01/2021 FINDINGS/IMPRESSION: Mild left basilar atelectasis or airspace disease. A small left pleural effusion cannot be excluded. No pneumothorax. Heart size and mediastinal contours are normal. No acute osseous abnormality. Report dictated by Param Eubanks MD (vice president investor relations). Eron Thomason have personally reviewed and interpreted this examination/study. > Interpreting Provider: Eron Payton on 03/08/2022 4:44 PM INTERVENTIONS: Medications 0.9% NaCl injection 3 mL (3 mL Intracatheter $ Given 03/17/22 1463) And 0.9% NaCl injection 1-10 mL (10 mL Intracatheter $ Given 03/16/22 0143) cefTRIAXone (Rocephin) 2,000 mg in 0.9% NaCl [...] (6 mL Intravenous $ Given - Contrast 03/15/227) heparin injection 5,000 Units (5,000 Units Subcutaneous [...] with a rate of 123. Will normal CA and QT intervals. No evidence of ST [...] 62 year old patient brought in from [place] for AMS. Patient was febrile and tachycardic [...] DATE/TIME OF EXAM: 03/08/2022 3:38 PM, LOCATION [facility] INDICATION: [...] noted. Report dictated by Param Eubanks MD (vice president investor relations). Eron Thomason have personally reviewed and interpreted this examination/study. > Interpreting Provider: Eron Payton on 03/08/2022 4:48 PM XR CHEST 1VW PORTABLE Final Result PROCEDURE: XR CHEST 1VW PORTABLE, DATE/TIME OF EXAM: 03/08/2022 3:14 PM, LOCATION [facility] INDICATION: R50.9: Fever, unspecified fever cause ADDITIONAL CLINICAL INFORMATION: Ordering Provider Reason For Exam: infection? SOB COMPARISON: 05/01/2021 FINDINGS/IMPRESSION: Mild left basilar atelectasis or airspace disease. A small left pleural effusion cannot be excluded. No pneumothorax. Heart size and mediastinal contours are normal. No acute osseous abnormality. Report dictated by Param Eubanks MD (vice president investor relations). Eron Thomason have personally reviewed and interpreted [...] Time reviewing labs/radiographs: 10 minutes Time with Trade Analyst services: 0 minutes I was directly involved [...] Means of arrival: Comments: [id number] AMS from [place] documented in this encounter Miscellaneous Notes * Coding Query - Petra Fuentes MD - 03/18/2022 6:58 AM CDT DOCUMENTATION CLARIFICATION REQUEST TO: Dr. Fuentes, FROM: Agnieszka Palumbo RN CCDS Email: [email or web address] Please clarify and document if the patient [...] 10:24 AM CDT RAPID RESPONSE EVENT NOTE [id number] [place] [address] Patient: Mojgan Tabor Location: : 1960 Reason for Admission: No admission diagnoses are documented for this encounter. Provider Teams Team Primary Team Specialty Team Pager [facility] 2 Yes Internal Medicine [facility] Vascular Team No Vascular Surgery Event Date/Time: 03/16/2022 1010 Summary of Events: 1010 - The Rapid Response Team (SLIDE MAKER) was paged for patient becoming unresponsive. 1012 [...] (37.2 ??C) 96 18 126/79 96 % 03/15/222 98.3 ??F (36.8 ??C) 82 18 118/68 [...] Response Nurse * Code/Rapid Response Event - Naa Bullock RN - 03/11/2022 11:27 AM CDT RAPID [place] [address] Patient: Mojgan Tabor Location: : 1960 Reason for Admission: No admission diagnoses are documented for this encounter. Provider Teams Team Primary Team Specialty Team Pager [facility] 2 Yes Internal Medicine Event Date/Time: 03/11/2022 10:42 Summary of Events: The Rapid Response Team (SLIDE MAKER) was paged for decreased responsiveness. GCS 13 [...] ??C) (!) 125 18 152/86 96 % 03/10/226 -- (!) 122 -- -- 100 % [...] CTAB Neuro: arousable to verbal stimuli, wouldn't jail guard hands on command Plan: Will follow up [...] Palomino FROM: Agnieszka Palumbo RN CCDS Email: [email or web address] Please clarify and document if the patient [...] Description 12/05/2024 1:00 PM CDT Office Visit [facility] - Neurology [facility], [place] [address] Sean Raymundo, [address] [place] [id number] documented as of this encounter Procedures Procedure [...] TOTAL) AM Draw 03/26/2022 7:25 AM CDT EGD Routine 03/25/2022 4:19 PM CDT GLUCOSE [...] POINT OF CARE (04/01/2022 8:13 AM CDT) [facility] Glucose WB/POC 126(H) 70 - 115 mg/dL 04/01/2022 8:14 AM CDT [facility] Specimen Type Cap Fingerstick 2021 8:14 AM CDT [facility] Blood BLOOD SPECIMEN / Unknown 04/01/2022 8:13 AM CDT 04/01/2022 8:14 AM CDT Dante Nuno MD LAB - POINT OF CARE ORDERABLES [facility] [address] [place] [address], [place] [phone] * (ABNORMAL) BASIC METABOLIC PANEL (CALCIUM TOTAL) (04/01/2022 6:08 AM CDT) BUN 12 7 - 26 mg/dL 04/01/2022 6:50 AM [facility] Creatinine 0.49(L) 0.71 - 1.16 mg/dL 04/01/2022 6:50 AM [facility] Sodium 138 136 - 145 mmol/L 04/01/2022 6:50 AM [facility] Potassium 4.3 3.5 - 4.5 mmol/L 04/01/2022 6:50 AM [facility] Chloride 104 98 - 107 mmol/L 04/01/2022 6:50 AM [facility] CO2 29 22 - 29 mmol/L 04/01/2022 6:50 AM [facility] Glucose 118(H) 70 - 115 mg/dL 04/01/2022 6:50 AM [facility] Calcium 9.2 8.4 - 10.2 mg/dL 04/01/2022 6:50 AM [facility] Anion Gap 9 8 - 18 04/01/2022 6:50 AM [facility] BUN/Creatinine Ratio 24(H) 7 - 23 04/01/2022 6:50 AM [facility] Osmolality Calculated 287 270 - 300 mOsm/kg 04/01/2022 6:50 AM [facility] eGFR by CKD-EPI >90 >=90 mL/min/1.7 3 m2 04/01/2022 6:50 AM [facility] Blood BLOOD SPECIMEN / Unknown Lab Venipuncture / Unknown 04/01/2022 6:08 AM CDT 04/01/2022 6:20 AM T Petra Fuentes MD LAB - CHEMISTRY MARSHAL MEDEROS [facility] [address] [place] [address], [place] [phone] * (ABNORMAL) CBC W/O DIFFERENTIAL (04/01/2022 6:08 AM T) WBC 8.2 3.5 - 10.5 10? 3 /uL 04/01/2022 6:26 AM [facility] RBC 3.43(L) 4.30 - 5.70 10? 6 /uL 04/01/2022 6:26 AM [facility] Hemoglobin 11.0(L) 12.0 - 17.6 g/dL 04/01/2022 6:26 AM [facility] Hematocrit 33.9(L) 35.2 - 51.7 % 04/01/2022 6:26 AM [facility] MCV 98.8(H) 80.7 - 98.3 fL 04/01/2022 6:26 AM [facility] MCH 32.1 26.7 - 34.0 pg 04/01/2022 6:26 AM [facility] MCHC 32.4 30.8 - 35.9 g/dL 04/01/2022 6:26 AM [facility] RDW-SD 51.7(H) 36.0 - 50.0 fL 04/01/2022 6:26 AM [facility] RDW-CV 14.1 11.2 - 14.8 % 04/01/2022 6:26 AM [facility] Platelet Count 219 150 - 400 10? 3 /uL 04/01/2022 6:26 AM [facility] MPV 11.2 9.4 - 12.9 fL 04/01/2022 6:26 AM [facility] nRBC Absolute 0.00 0 10? 3 /uL 04/01/2022 6:26 AM [facility] nRBC Auto 0.0 0 /100 WBC 04/01/2022 6:26 AM [facility] Blood BLOOD SPECIMEN / Unknown Lab Venipuncture / Unknown 04/01/2022 6:08 AM CDT 04/01/2022 6:19 AM T Petra Fuentes MD LAB - HEMATOLOGY ORD ERABLES [address] [address], [place] [phone] * GLUCOSE - POINT OF CARE (03/31/2022 11:40 PM CDT) Glucose WB/POC 112 70 - 115 mg/dL 03/31/2022 11:41 PM CDT [facility] Specimen Type Cap Fingerstick 2021 11:41 PM CDT [facility] Blood BLOOD SPECIMEN / Unknown 03/31/2022 11:40 PM CDT 03/31/2022 11:41 PM CDT Dante Nuno MD LAB - POINT OF CARE ORDERABLES Performing Organization Address City/[facility]/ZIP Co de Phone Number [address] [address], [place] [phone] * (ABNORMAL) GLUCOSE - POINT OF CARE (03/31/2022 5:31 PM CDT) Glucose WB/POC 127(H) 70 - 115 mg/dL 03/31/2022 5:39 PM CDT [facility] Specimen Type Cap Fingerstick 2021 5:39 PM CDT [facility] Blood BLOOD SPECIMEN / Unknown 03/31/2022 5:31 PM CDT 03/31/2022 5:39 PM CDT Dante Nuno MD LAB - POINT OF CARE ORDERABLES [address] [address], [place] [phone] * GLUCOSE - POINT OF CARE (03/31/2022 12:28 PM CDT) Glucose WB/POC 94 70 - 115 mg/dL 03/31/2022 12:33 PM CDT [facility] Specimen Type Cap Fingerstick 2021 12:33 PM CDT [facility] Blood BLOOD SPECIMEN / Unknown 03/31/2022 12:28 PM CDT 03/31/2022 12:33 PM CDT Dante Nuno MD LAB - POINT OF CARE ORDERABLES [facility] [address] [place] [address], [facility] [phone] * GLUCOSE - POINT OF CARE (03/31/2022 7:45 AM CDT) Glucose WB/POC 114 70 - 115 mg/dL 03/31/2022 7:46 AM CDT [facility] Specimen Type Cap Fingerstick 2021 7:46 AM CDT [facility] Blood BLOOD SPECIMEN / Unknown 03/31/2022 7:45 AM CDT 03/31/2022 7:46 AM CDT Dante Nuno MD LAB - POINT OF CARE ORDERABLES [facility] [address] [place] [address], [place] [phone] * (ABNORMAL) BASIC METABOLIC PANEL (CALCIUM TOTAL) (03/31/2022 6:37 AM CDT) BUN 14 7 - 26 mg/dL 03/31/2022 8:05 AM [facility] Creatinine 0.46(L) 0.71 - 1.16 mg/dL 03/31/2022 8:05 AM [facility] Sodium 137 136 - 145 mmol/L 03/31/2022 8:05 AM [facility] Potassium 4.4 3.5 - 4.5 mmol/L 03/31/2022 8:05 AM [facility] Chloride 102 98 - 107 mmol/L 03/31/2022 8:05 AM [facility] CO2 31(H) 22 - 29 mmol/L 03/31/2022 8:05 AM [facility] Glucose 104 70 - 115 mg/dL 03/31/2022 8:05 AM [facility] Calcium 9.3 8.4 - 10.2 mg/dL 03/31/2022 8:05 AM [facility] Anion Gap 8 8 - 18 03/31/2022 8:05 AM [facility] BUN/Creatinine Ratio 30(H) 7 - 23 03/31/2022 8:05 AM [facility] Osmolality Calculated 285 270 - 300 mOsm/kg 03/31/2022 8:05 AM [facility] eGFR by CKD-EPI >90 >=90 mL/min/1.7 3 m2 03/31/2022 8:05 AM [facility] Blood BLOOD SPECIMEN / Unknown Lab Venipuncture / Unknown 03/31/2022 6:37 AM CDT 03/31/2022 7:35 AM T Petra Fuentes MD LAB - CHEMISTRY MARSHAL MEDEROS [facility] [place] Organization Address City/State/[facility] Co de Phone Number [facility] [address] [place] [phone], [facility] [phone] * (ABNORMAL) CBC W/O DIFFERENTIAL (03/31/2022 6:37 AM CDT) WBC 8.5 3.5 - 10.5 10? 3 /uL 03/31/2022 7:46 AM [facility] RBC 3.34(L) 4.30 - 5.70 10? 6 /uL 03/31/2022 7:46 AM [facility] Hemoglobin 10.8(L) 12.0 - 17.6 g/dL 03/31/2022 7:46 AM [facility] Hematocrit 33.0(L) 35.2 - 51.7 % 03/31/2022 7:46 AM [facility] MCV 98.8(H) 80.7 - 98.3 fL 03/31/2022 7:46 AM [facility] MCH 32.3 26.7 - 34.0 pg 03/31/2022 7:46 AM [facility] MCHC 32.7 30.8 - 35.9 g/dL 03/31/2022 7:46 AM [facility] RDW-SD 51.2(H) 36.0 - 50.0 fL 03/31/2022 7:46 AM [facility] RDW-CV 14.2 11.2 - 14.8 % 03/31/2022 7:46 AM [facility] Platelet Count 238 150 - 400 10? 3 /uL 03/31/2022 7:46 AM [facility] MPV 12.2 9.4 - 12.9 fL 03/31/2022 7:46 AM [facility] nRBC Absolute 0.00 0 10? 3 /uL 03/31/2022 7:46 AM [facility] nRBC Auto 0.0 0 /100 WBC 03/31/2022 7:46 AM [facility] Blood BLOOD SPECIMEN / Unknown Lab Venipuncture / Unknown 03/31/2022 6:37 AM CDT 03/31/2022 7:35 AM CDT Petra Fuentes MD LAB - HEMATOLOGY ORD ERABLES [address] [address], [place] [phone] * (ABNORMAL) GLUCOSE - POINT OF CARE (03/30/2022 5:14 PM CDT) [facility] Glucose WB/POC 130(H) 70 - 115 mg/dL 03/30/2022 5:14 PM CDT [facility] Specimen Type Cap Fingerstick 2021 5:14 PM CDT [facility] Blood BLOOD SPECIMEN / Unknown 03/30/2022 5:14 PM CDT 03/30/2022 5:14 PM CDT Dante Nuno MD LAB - POINT OF CARE ORDERABLES [address] [address], [place] [phone] * GLUCOSE - POINT OF CARE (03/30/2022 12:22 PM CDT) Glucose WB/POC 98 70 - 115 mg/dL 03/30/2022 12:31 PM CDT [facility] Specimen Type Cap Fingerstick 2021 12:31 PM CDT [facility] Blood BLOOD SPECIMEN / Unknown 03/30/2022 12:22 PM CDT 03/30/2022 12:31 PM CDT Dante Nuno MD LAB - POINT OF CARE ORDERABLES [facility] [address] [place] [address], [place] [phone] * (ABNORMAL) GLUCOSE - POINT OF CARE (03/30/2022 7:41 AM CDT) Glucose WB/POC 118(H) 70 - 115 mg/dL 03/30/2022 7:42 AM CDT [facility] Specimen Type Cap Fingerstick 2021 7:42 AM CDT [facility] Blood BLOOD SPECIMEN / Unknown 03/30/2022 7:41 AM CDT 03/30/2022 7:41 AM CDT Dante Nuno MD LAB - POINT OF CARE ORDERABLES [facility] [address] [place] [id number], [place] [phone] * (ABNORMAL) BASIC METABOLIC PANEL (CALCIUM TOTAL) (03/30/2022 2:16 AM CDT) BUN 13 7 - 26 mg/dL 03/30/2022 3:55 AM CDT [facility] Creatinine 0.55(L) 0.71 - 1.16 mg/dL 03/30/2022 3:55 AM CDT [facility] Sodium 140 136 - 145 mmol/L 03/30/2022 3:55 AM CDT [facility] Potassium 4.9(H) 3.5 - 4.5 mmol/L 03/30/2022 3:55 AM T [facility] Chloride 103 98 - 107 mmol/L 03/30/2022 3:55 AM [facility] CO2 26 22 - 29 mmol/L 03/30/2022 3:55 AM [facility] Glucose 82 70 - 115 mg/dL 03/30/2022 3:55 AM [facility] Calcium 9.6 8.4 - 10.2 mg/dL 03/30/2022 3:55 AM [facility] Anion Gap 16 8 - 18 03/30/2022 3:55 AM [facility] BUN/Creatinine Ratio 24(H) 7 - 23 03/30/2022 3:55 AM [facility] Osmolality Calculated 289 270 - 300 mOsm/kg 03/30/2022 3:55 AM [facility] eGFR by CKD-EPI >90 >=90 mL/min/1.7 3 m2 03/30/2022 3:55 AM [facility] Blood BLOOD SPECIMEN / Unknown Lab Venipuncture / Unknown 03/30/2022 2:16 AM CDT 03/30/2022 3:24 AM T Petra Fuentes MD [facility] Organization Address City/State/ZIP Co de Phone Number [facility] [address] [place] [phone], [facility] [phone] * (ABNORMAL) CBC W/O DIFFERENTIAL (03/30/2022 2:16 AM CDT) WBC 6.8 3.5 - 10.5 10? 3 /uL 03/30/2022 3:29 AM [facility] RBC 3.83(L) 4.30 - 5.70 10? 6 /uL 03/30/2022 3:29 AM [facility] Hemoglobin 12.2 12.0 - 17.6 g/dL 03/30/2022 3:29 AM [facility] Hematocrit 37.5 35.2 - 51.7 % 03/30/2022 3:29 AM [facility] MCV 97.9 80.7 - 98.3 fL 03/30/2022 3:29 AM [facility] MCH 31.9 26.7 - 34.0 pg 03/30/2022 3:29 AM [facility] MCHC 32.5 30.8 - 35.9 g/dL 03/30/2022 3:29 AM [facility] RDW-SD 51.1(H) 36.0 - 50.0 fL 03/30/2022 3:29 AM [facility] RDW-CV 14.2 11.2 - 14.8 % 03/30/2022 3:29 AM [facility] Platelet Count 240 150 - 400 10? 3 /uL 03/30/2022 3:29 AM [facility] MPV 11.9 9.4 - 12.9 fL 03/30/2022 3:29 AM [facility] nRBC Absolute 0.00 0 10? 3 /uL 03/30/2022 3:29 AM [facility] nRBC Auto 0.0 0 /100 WBC 03/30/2022 3:29 AM [facility] Blood BLOOD SPECIMEN / Unknown Lab Venipuncture / Unknown 03/30/2022 2:16 AM CDT 03/30/2022 3:24 AM CDT Petra Fuentes MD LAB - HEMATOLOGY ORD ERABLES [facility] [address] [place] [address], [facility] [phone] * (ABNORMAL) GLUCOSE - POINT OF CARE (03/29/2022 5:03 PM CDT) Pathologist [facility] Glucose WB/POC 120(H) 70 - 115 mg/dL 03/29/2022 5:07 PM T [facility] Specimen Type Cap Fingerstick 2021 5:07 PM T [facility] Blood BLOOD SPECIMEN / Unknown 03/29/2022 5:03 PM CDT 03/29/2022 5:07 PM CDT Artur Mcgraw MD LAB - POINT OF CARE ORDERABLES [facility] [address] [place] [address], [place] [phone] * (ABNORMAL) GLUCOSE - POINT OF CARE (03/29/2022 11:55 AM CDT) Pathologist [facility] Glucose WB/POC 133(H) 70 - 115 mg/dL 03/29/2022 12:00 PM CDT [facility] Specimen Type Cap Fingerstick 2021 12:00 PM CDT [facility] Blood BLOOD SPECIMEN / Unknown 03/29/2022 11:55 AM CDT 03/29/2022 12:00 PM CDT Artur Mcgraw MD LAB - POINT OF CARE ORDERABLES [address] [address], [place] [phone] * GLUCOSE - POINT OF CARE (03/29/2022 7:58 AM CDT) [facility] Glucose WB/POC 107 70 - 115 mg/dL 03/29/2022 8:06 AM CDT [facility] Specimen Type Cap Fingerstick 2021 8:06 AM CDT [facility] Blood BLOOD SPECIMEN / Unknown 03/29/2022 7:58 AM CDT 03/29/2022 8:06 AM CDT Artur Mcgraw MD LAB - POINT OF CARE ORDERABLES [address] [address], [place] [phone] * (ABNORMAL) BASIC METABOLIC PANEL (CALCIUM TOTAL) (03/29/2022 3:18 AM CDT) BUN 11 7 - 26 mg/dL 03/29/2022 6:39 AM CDT [facility] Creatinine 0.50(L) 0.71 - 1.16 mg/dL 03/29/2022 6:39 AM CDT [facility] Sodium 139 136 - 145 mmol/L 03/29/2022 6:39 AM [facility] Potassium 4.2 3.5 - 4.5 mmol/L 03/29/2022 6:39 AM [facility] Chloride 102 98 - 107 mmol/L 03/29/2022 6:39 AM [facility] CO2 28 22 - 29 mmol/L 03/29/2022 6:39 AM [facility] Glucose 96 70 - 115 mg/dL 03/29/2022 6:39 AM [facility] Calcium 9.3 8.4 - 10.2 mg/dL 03/29/2022 6:39 AM [facility] Anion Gap 13 8 - 18 03/29/2022 6:39 AM [facility] BUN/Creatinine Ratio 22 7 - 23 03/29/2022 6:39 AM [facility] Osmolality Calculated 287 270 - 300 mOsm/kg 03/29/2022 6:39 AM [facility] eGFR by CKD-EPI >90 >=90 mL/min/1.7 3 m2 03/29/2022 6:39 AM [facility] Blood BLOOD SPECIMEN / Unknown Lab Venipuncture / Unknown 03/29/2022 3:18 AM CDT 03/29/2022 6:12 AM CDT Petra Fuentes MD LAB - CHEMISTRY MARSHAL MEDEROS [facility] [place] [place] Organization Address [facility]/State/[facility] Co de Phone Number [address] [address], [facility] [phone] * (ABNORMAL) CBC W/O DIFFERENTIAL (03/29/2022 3:18 AM CDT) WBC 5.6 3.5 - 10.5 10? 3 /uL 03/29/2022 6:55 AM [facility] RBC 3.35(L) 4.30 - 5.70 10? 6 /uL 03/29/2022 6:55 AM [facility] Hemoglobin 10.8(L) 12.0 - 17.6 g/dL 03/29/2022 6:55 AM [facility] Hematocrit 33.1(L) 35.2 - 51.7 % 03/29/2022 6:55 AM T [facility] MCV 98.8(H) 80.7 - 98.3 fL 03/29/2022 6:55 AM T [facility] MCH 32.2 26.7 - 34.0 pg 03/29/2022 6:55 AM T [facility] MCHC 32.6 30.8 - 35.9 g/dL 03/29/2022 6:55 AM T [facility] RDW-SD 52.3(H) 36.0 - 50.0 fL 03/29/2022 6:55 AM [facility] RDW-CV 14.4 11.2 - 14.8 % 03/29/2022 6:55 AM [facility] Platelet Count 260 150 - 400 10? 3 /uL 03/29/2022 6:55 AM [facility] MPV 12.1 9.4 - 12.9 fL 03/29/2022 6:55 AM [facility] nRBC Absolute 0.00 0 10? 3 /uL 03/29/2022 6:55 AM [facility] nRBC Auto 0.0 0 /100 WBC 03/29/2022 6:55 AM [facility] Blood BLOOD SPECIMEN / Unknown Lab Venipuncture / Unknown 03/29/2022 3:18 AM CDT 03/29/2022 6:13 AM CDT Petra Fuentes MD LAB - HEMATOLOGY ORD ERABLES [facility] [address] [place] [address], [facility] [phone] * GLUCOSE - POINT OF CARE (03/28/2022 10:05 PM CDT) Pathologist [facility] Glucose WB/POC 111 70 - 115 mg/dL 03/28/2022 10:13 PM T [facility] Specimen Type Cap Fingerstick 2021 10:13 PM [facility] Blood BLOOD SPECIMEN / Unknown 03/28/2022 10:05 PM CDT 03/28/2022 10:13 PM CDT Artur Mcgraw MD LAB - POINT OF CARE ORDERABLES [address] [address], [place] [phone] * GLUCOSE - POINT OF CARE (03/28/2022 1:18 PM CDT) [facility] Glucose WB/POC 99 70 - 115 mg/dL 03/28/2022 1:23 PM CDT [facility] Specimen Type Cap Fingerstick 2021 1:23 PM CDT [facility] Blood BLOOD SPECIMEN / Unknown 03/28/2022 1:18 PM CDT 03/28/2022 1:23 PM CDT Artur Mcgraw MD LAB - POINT OF CARE ORDERABLES [facility] [address] [place] [phone], [place] [phone] * (ABNORMAL) BASIC METABOLIC PANEL (CALCIUM TOTAL) (03/28/2022 11:05 AM CDT) [facility] BUN 11 7 - 26 mg/dL 03/28/2022 11:41 AM [facility] Creatinine 0.49(L) 0.71 - 1.16 mg/dL 03/28/2022 11:41 AM [facility] Sodium 138 136 - 145 mmol/L 03/28/2022 11:41 AM [facility] Potassium 4.8(H) 3.5 - 4.5 mmol/L 03/28/2022 11:41 AM [facility] Chloride 103 98 - 107 mmol/L 03/28/2022 11:41 AM [facility] CO2 27 22 - 29 mmol/L 03/28/2022 11:41 AM [facility] Glucose 115 70 - 115 mg/dL 03/28/2022 11:41 AM [facility] Calcium 9.2 8.4 - 10.2 mg/dL 03/28/2022 11:41 AM [facility] Anion Gap 13 8 - 18 03/28/2022 11:41 AM [facility] BUN/Creatinine Ratio 22 7 - 23 03/28/2022 11:41 AM [facility] Osmolality Calculated 286 270 - 300 mOsm/kg 03/28/2022 11:41 AM [facility] eGFR by CKD-EPI >90 >=90 mL/min/1.7 3 m2 03/28/2022 11:41 AM [facility] Blood BLOOD SPECIMEN / Unknown Lab Venipuncture / Unknown 03/28/2022 11:05 AM CDT 03/28/2022 11:15 AM T Petra Fuentes MD LAB - CHEMISTRY MARSHAL MEDEROS [facility] [place] [place] Organization Address City/State/ZIP Co de Phone Number [facility] [address] [place] [phone], [facility] [phone] * (ABNORMAL) CBC W/O DIFFERENTIAL (03/28/2022 11:05 AM [facility]) WBC 5.8 3.5 - 10.5 10? 3 /uL 03/28/2022 11:29 AM [facility] RBC 3.48(L) 4.30 - 5.70 10? 6 /uL 03/28/2022 11:29 AM [facility] Hemoglobin 11.2(L) 12.0 - 17.6 g/dL 03/28/2022 11:29 AM [facility] Hematocrit 34.0(L) 35.2 - 51.7 % 03/28/2022 11:29 AM [facility] MCV 97.7 80.7 - 98.3 fL 03/28/2022 11:29 AM [facility] MCH 32.2 26.7 - 34.0 pg 03/28/2022 11:29 AM [facility] MCHC 32.9 30.8 - 35.9 g/dL 03/28/2022 11:29 AM [facility] RDW-SD 51.1(H) 36.0 - 50.0 fL 03/28/2022 11:29 AM CDT [facility] RDW-CV 14.4 11.2 - 14.8 % 03/28/2022 11:29 AM T [facility] Platelet Count 251 150 - 400 10? 3 /uL 03/28/2022 11:29 AM CDT [facility] MPV 11.1 9.4 - 12.9 fL 03/28/2022 11:29 AM T [facility] nRBC Absolute 0.00 0 10? 3 /uL 03/28/2022 11:29 AM CDT [facility] nRBC Auto 0.0 0 /100 WBC 03/28/2022 11:29 AM T [facility] Blood BLOOD SPECIMEN / Unknown Lab Venipuncture / Unknown 03/28/2022 11:05 AM CDT 03/28/2022 11:15 AM CDT Petra Fuentes MD LAB - HEMATOLOGY ORD ERABLES [address] [address], [place] [phone] * (ABNORMAL) GLUCOSE - POINT OF CARE (03/28/2022 7:35 AM CDT) Glucose WB/POC 118(H) 70 - 115 mg/dL 03/28/2022 7:40 AM CDT [facility] Specimen Type Cap Fingerstick 2021 7:40 AM CDT [facility] Blood BLOOD SPECIMEN / Unknown 03/28/2022 7:35 AM CDT 03/28/2022 7:40 AM CDT Artur Mcgraw MD LAB - POINT OF CARE ORDERABLES [address] [address], [place] [phone] * (ABNORMAL) GLUCOSE - POINT OF CARE (03/27/2022 11:39 AM CDT) Glucose WB/POC 126(H) 70 - 115 mg/dL 03/27/2022 11:44 AM CDT [facility] Specimen Type Cap Fingerstick 2021 11:44 AM CDT [facility] Blood BLOOD SPECIMEN / Unknown 03/27/2022 11:39 AM CDT 03/27/2022 11:44 AM CDT Artur Mcgraw MD LAB - POINT OF CARE ORDERABLES [facility] [address] [place] [address], [place] [phone] * GLUCOSE - POINT OF CARE (03/27/2022 8:43 AM CDT) Glucose WB/POC 112 70 - 115 mg/dL 03/27/2022 8:48 AM CDT [facility] Specimen Type Cap Fingerstick 2021 8:48 AM CDT [facility] Blood BLOOD SPECIMEN / Unknown 03/27/2022 8:43 AM CDT 03/27/2022 8:48 AM CDT Artur Mcgraw MD LAB - POINT OF CARE ORDERABLES [facility] [address] [place] [address], [place] [phone] * (ABNORMAL) BASIC METABOLIC PANEL (CALCIUM TOTAL) (03/27/2022 3:29 AM CDT) BUN 8 7 - 26 mg/dL 03/27/2022 4:14 AM CDT [facility] Creatinine 0.47(L) 0.71 - 1.16 mg/dL 03/27/2022 4:14 AM CDT [facility] Sodium 137 136 - 145 mmol/L 03/27/2022 4:14 AM CDT [facility] Potassium 4.0 3.5 - 4.5 mmol/L 03/27/2022 4:14 AM CDT [facility] Chloride 104 98 - 107 mmol/L 03/27[facility]22 [facility] 22 - 29 mmol/L 03/27/2022 4:14 AM [facility] Glucose 109 70 - 115 mg/dL 03/27/2022 4:14 AM [facility] Calcium 9.4 8.4 - 10.2 mg/dL 03/27/2022 4:14 AM [facility] Anion Gap 13 8 - 18 03/27/2022 4:14 AM [facility] BUN/Creatinine Ratio 17 7 - 23 03/27/2022 4:14 AM [facility] Osmolality Calculated 283 270 - 300 mOsm/kg 03/27/2022 4:14 AM [facility] eGFR by CKD-EPI >90 >=90 mL/min/1.7 3 m2 03/27/2022 4:14 AM [facility] Blood BLOOD SPECIMEN / Unknown Lab Venipuncture / Unknown 03/27/2022 3:29 AM CDT 03/27/2022 3:43 AM T Petra Fuentes MD LAB - [facility]MISTRY [facility] Organization Address City/State/ZIP Co de Phone Number [facility] [address] [place] [address], [facility] [phone] * (ABNORMAL) CBC W/O DIFFERENTIAL (03/27/2022 3:29 AM CDT) WBC 9.3 3.5 - 10.5 10? 3 /uL 03/27/2022 3:51 AM [facility] RBC 3.40(L) 4.30 - 5.70 10? 6 /uL 03/27/2022 3:51 AM [facility] Hemoglobin 11.0(L) 12.0 - 17.6 g/dL 03/27/2022 3:51 AM [facility] Hematocrit 33.2(L) 35.2 - 51.7 % 03/27/2022 3:51 AM [facility] MCV 97.6 80.7 - 98.3 fL 03/27/2022 3:51 AM [facility] MCH 32.4 26.7 - 34.0 pg 03/27/2022 3:51 AM CDT [facility] MCHC 33.1 30.8 - 35.9 g/dL 03/27/2022 3:51 AM T [facility] RDW-SD 50.8(H) 36.0 - 50.0 fL 03/27/2022 3:51 AM T [facility] RDW-CV 14.3 11.2 - 14.8 % 03/27/2022 3:51 AM T [facility] Platelet Count 252 150 - 400 10? 3 /uL 03/27/2022 3:51 AM T [facility] MPV 11.0 9.4 - 12.9 fL 03/27/2022 3:51 AM T [facility] nRBC Absolute 0.00 0 10? 3 /uL 03/27/2022 3:51 AM [facility] nRBC Auto 0.0 0 /100 WBC 03/27/2022 3:51 AM T [facility] Blood BLOOD SPECIMEN / Unknown Lab Venipuncture / Unknown 03/27/2022 3:29 AM CDT 03/27/2022 3:44 AM CDT Petra Fuentes MD LAB - HEMATOLOGY ORD ERABLES [address] [address], [place] [phone] * GLUCOSE - POINT OF CARE (03/26/2022 5:47 PM CDT) Glucose WB/POC 93 70 - 115 mg/dL 03/26/2022 5:52 PM CDT [facility] Specimen Type Cap Fingerstick 2021 5:52 PM CDT [facility] Blood BLOOD SPECIMEN / Unknown 03/26/2022 5:47 PM CDT 03/26/2022 5:52 PM CDT Artur Mcgraw MD LAB - POINT OF CARE ORDERABLES [address] [address], [place] [phone] * GLUCOSE - POINT OF CARE (03/26/2022 11:59 AM CDT) Glucose WB/POC 92 70 - 115 mg/dL 03/26/2022 12:03 PM CDT [facility] Specimen Type Cap Fingerstick 2021 12:03 PM CDT [facility] Blood BLOOD SPECIMEN / Unknown 03/26/2022 11:59 AM CDT 03/26/2022 12:03 PM CDT Artur Mcgraw MD LAB - POINT OF CARE ORDERABLES [facility] [address] [place] [address], [place] [phone] * GLUCOSE - POINT OF CARE (03/26/2022 8:45 AM CDT) Glucose WB/POC 91 70 - 115 mg/dL 03/26/2022 12:03 PM CDT [facility] Specimen Type Cap Fingerstick 2021 12:03 PM CDT [facility] Blood BLOOD SPECIMEN / Unknown 03/26/2022 8:45 AM CDT 03/26/2022 12:03 PM CDT Artur Mcgraw MD LAB - POINT OF CARE ORDERABLES [facility] [address] [place] [phone], [place] [phone] * (ABNORMAL) BASIC METABOLIC PANEL (CALCIUM TOTAL) (03/26/2022 7:25 AM CDT) BUN 8 7 - 26 mg/dL 03/26/2022 8:23 AM CDT [facility] Creatinine 0.46(L) 0.71 - 1.16 mg/dL 03/26/2022 8:23 AM CDT [facility] Sodium 138 136 - 145 mmol/L 03/26/2022 8:23 AM CDT [facility] Potassium 4.3 3.5 - 4.5 mmol/L 03/26/2022 8:23 AM [facility] Chloride 105 98 - 107 mmol/L 03/26/2022 8:23 AM [facility] CO2 23 22 - 29 mmol/L 03/26/2022 8:23 AM [facility] Glucose 97 70 - 115 mg/dL 03/26/2022 8:23 AM [facility] Calcium 9.3 8.4 - 10.2 mg/dL 03/26/2022 8:23 AM [facility] Anion Gap 14 8 - 18 03/26/2022 8:23 AM [facility] BUN/Creatinine Ratio 17 7 - 23 03/26/2022 8:23 AM [facility] Osmolality Calculated 284 270 - 300 mOsm/kg 03/26/2022 8:23 AM [facility] eGFR by CKD-EPI >90 >=90 mL/min/1.7 3 m2 03/26/2022 8:23 AM [facility] Blood BLOOD SPECIMEN / Unknown Lab Venipuncture / Unknown 03/26/2022 7:25 AM CDT 03/26/2022 7:57 AM T Petra Fuentes MD LAB - CHEMISTRY MARSHAL MEDEROS [facility] [place] [place] Organization Address City/State/[facility] Co de Phone Number [facility] [address] [place] [phone], [facility] [phone] * (ABNORMAL) CBC W/O DIFFERENTIAL (03/26/2022 7:25 AM CDT) WBC 9.0 3.5 - 10.5 10? 3 /uL 03/26/2022 8:02 AM [facility] RBC 3.46(L) 4.30 - 5.70 10? 6 /uL 03/26/2022 8:02 AM [facility] Hemoglobin 11.1(L) 12.0 - 17.6 g/dL 03/26/2022 8:02 AM [facility] Hematocrit 33.2(L) 35.2 - 51.7 % 03/26/2022 8:02 AM [facility] MCV 96.0 80.7 - 98.3 fL 03/26/2022 8:02 AM [facility] MCH 32.1 26.7 - 34.0 pg 03/26/2022 8:02 AM [facility] MCHC 33.4 30.8 - 35.9 g/dL 03/26/2022 8:02 AM [facility] RDW-SD 49.4 36.0 - 50.0 fL 03/26/2022 8:02 AM [facility] RDW-CV 14.2 11.2 - 14.8 % 03/26/2022 8:02 AM [facility] Platelet Count 243 150 - 400 10? 3 /uL 03/26/2022 8:02 AM [facility] MPV 11.3 9.4 - 12.9 fL 03/26/2022 8:02 AM [facility] nRBC Absolute 0.00 0 10? 3 /uL 03/26/2022 8:02 AM [facility] nRBC Auto 0.0 0 /100 WBC 03/26/2022 8:02 AM [facility] Blood BLOOD SPECIMEN / Unknown Lab Venipuncture / Unknown 03/26/2022 7:25 AM CDT 03/26/2022 7:57 AM CDT Petra Fuentes MD LAB - HEMATOLOGY ORD ERABLES Performing Organization Address City/State/[facility] Co de Phone Number [facility] [address] [place] [phone], [facility] [phone] * EGD (03/25/2022 4:19 PM CDT) Report [...] and ?oxygen saturations were monitored continuously. The ?[id number] was introduced through the mouth, and ?advanced [...] Procedure Code(s): ? --- Professional --- ? 68001, Esophagogastroduoden oscopy, flexible, transoral; with directed ? placement of percutaneous gastrostomy tube Diagnosis Code(s): ?--- Professional --- ?K31.89, Other diseases of stomach and duodenum ?R13.10, Dysphagia, unspecified CPT copyright 2019 [employer]. All rights reserved. The codes documented in this report are preliminary and upon studio sales associate review may be revised to meet current compliance requirements. __ Tiffani Castillo MD 03/25/2022 5:11:23 PM Note Initiated On: 03/25/2022 4:19 PM Number of Addenda: 0 ? [facility] ? [address] [place] [address] [facility] 03/25/2022 4:19 PM CDT Artur Mcgraw MD GI PROCEDURE ORDERA BLES Performing Organization Address [facility] Co de Phone Number [facility] * (ABNORMAL) GLUCOSE - POINT OF CARE (03/25/2022 11:11 AM CDT) Glucose WB/POC 125(H) 70 - 115 mg/dL 03/25/2022 11:17 AM CDT [facility] Specimen Type Cap Fingerstick 2021 11:17 AM CDT [facility] Blood BLOOD SPECIMEN / Unknown 03/25/2022 11:11 AM CDT 03/25/2022 11:17 AM CDT Artur Mcgraw MD LAB - POINT OF CARE ORDERABLES Performing Organization Address [facility] Co de Phone Number [address] [address], [place] [phone] * (ABNORMAL) GLUCOSE - POINT OF CARE (03/25/2022 8:12 AM CDT) Glucose WB/POC 125(H) 70 - 115 mg/dL 03/25/2022 8:13 AM CDT [facility] Specimen Type Cap Fingerstick 2021 8:13 AM CDT [facility] Blood BLOOD SPECIMEN / Unknown 03/25/2022 8:12 AM CDT 03/25/2022 8:13 AM CDT Artur Mcgraw MD LAB - POINT OF CARE ORDERABLES Performing Organization Address [facility] Co de Phone Number [address] [address], [place] [phone] * (ABNORMAL) BASIC METABOLIC PANEL (CALCIUM TOTAL) (03/25/2022 3:51 AM CDT) BUN 14 7 - 26 mg/dL 03/25/2022 5:23 AM [facility] Creatinine 0.45(L) 0.71 - 1.16 mg/dL 03/25/2022 5:23 AM [facility] Sodium 141 136 - 145 mmol/L 03/25/2022 5:23 AM [facility] Potassium 4.1 3.5 - 4.5 mmol/L 03/25/2022 5:23 AM [facility] Chloride 108(H) 98 - 107 mmol/L 03/25/2022 5:23 AM [facility] CO2 24 22 - 29 mmol/L 03/25/2022 5:23 AM [facility] Glucose 108 70 - 115 mg/dL 03/25/2022 5:23 AM [facility] Calcium 8.9 8.4 - 10.2 mg/dL 03/25/2022 5:23 AM [facility] Anion Gap 13 8 - 18 03/25/2022 5:23 AM [facility] BUN/Creatinine Ratio 31(H) 7 - 23 03/25/2022 5:23 AM [facility] Osmolality Calculated 293 270 - 300 mOsm/kg 03/25/2022 5:23 AM [facility] eGFR by CKD-EPI >90 >=90 mL/min/1.7 3 m2 03/25/2022 5:23 AM [facility] Blood BLOOD SPECIMEN / Unknown Lab Venipuncture / Unknown 03/25/2022 3:51 AM CDT 03/25/2022 4:50 AM CDT Petra Fuentes MD LAB - CHEMISTRY MARSHAL MEDEROS [facility] [place] [place] Organization Address City/State/ZIP Co de Phone Number [facility] [address] [place] [phone], [facility] [phone] * (ABNORMAL) CBC W/O DIFFERENTIAL (03/25/2022 3:51 AM CDT) WBC 9.4 3.5 - 10.5 10? 3 /uL 03/25/2022 5:01 AM [facility] RBC 3.32(L) 4.30 - 5.70 10? 6 /uL 03/25/2022 5:01 AM [facility] Hemoglobin 10.6(L) 12.0 - 17.6 g/dL 03/25/2022 5:01 AM [facility] Hematocrit 32.0(L) 35.2 - 51.7 % 03/25/2022 5:01 AM [facility] MCV 96.4 80.7 - 98.3 fL 03/25/2022 5:01 AM [facility] MCH 31.9 26.7 - 34.0 pg 03/25/2022 5:01 AM [facility] MCHC 33.1 30.8 - 35.9 g/dL 03/25/2022 5:01 AM [facility] Platelet Count 262 150 - 400 10? 3 /uL 03/25/2022 5:01 AM [facility] RDW-SD 48.5 36.0 - 50.0 fL 03/25/2022 5:01 AM [facility] RDW-CV 13.9 11.2 - 14.8 % 03/25/2022 5:01 AM [facility] MPV 11.4 9.4 - 12.9 fL 03/25/2022 5:01 AM [facility] nRBC Absolute 0.00 0 10? 3 /uL 03/25/2022 5:01 AM [facility] nRBC Auto 0.0 0 /100 WBC 03/25/2022 5:01 AM [facility] Blood BLOOD SPECIMEN / Unknown Lab Venipuncture / Unknown 03/25/2022 3:51 AM CDT 03/25/2022 4:50 AM CDT Petra Fuentes MD LAB - HEMATOLOGY ORD ERABLES [facility] [address] [place] [phone], [facility] [phone] * GLUCOSE - POINT OF CARE (03/24/2022 4:28 PM CDT) [facility] Glucose WB/POC 90 70 - 115 mg/dL 03/24/2022 4:30 PM CDT [facility] Specimen Type Arterial 03/24/2022 4:30 PM CDT [facility] Blood BLOOD SPECIMEN / Unknown 03/24/2022 4:28 PM CDT 03/24/2022 4:30 PM CDT Artur Mcgraw MD LAB - POINT OF CARE ORDERABLES [address] [address], [place] [phone] * (ABNORMAL) GLUCOSE - POINT OF CARE (03/24/2022 12:01 PM CDT) Glucose WB/POC 123(H) 70 - 115 mg/dL 03/24/2022 12:02 PM CDT [facility] Specimen Type Arterial 03/24/2022 12:02 PM CDT [facility] Blood BLOOD SPECIMEN / Unknown 03/24/2022 12:01 PM CDT 03/24/2022 12:02 PM CDT Artur Mcgraw MD LAB - POINT OF CARE ORDERABLES [address] [address], [place] [phone] * GLUCOSE - POINT OF CARE (03/24/2022 8:25 AM CDT) Glucose WB/POC 90 70 - 115 mg/dL 03/24/2022 8:26 AM CDT [facility] Specimen Type Arterial 03/24/2022 8:26 AM CDT [facility] Blood BLOOD SPECIMEN / Unknown 03/24/2022 8:25 AM CDT 03/24/2022 8:26 AM CDT Artur Mcgraw MD LAB - POINT OF CARE ORDERABLES [address] [address], [place] [phone] * (ABNORMAL) BASIC METABOLIC PANEL (CALCIUM TOTAL) (03/24/2022 2:58 AM CDT) BUN 12 7 - 26 mg/dL 03/24/2022 5:13 AM [facility] Creatinine 0.48(L) 0.71 - 1.16 mg/dL 03/24/2022 5:13 AM [facility] Sodium 143 136 - 145 mmol/L 03/24/2022 5:13 AM [facility] Potassium 3.9 3.5 - 4.5 mmol/L 03/24/2022 5:13 AM [facility] Chloride 107 98 - 107 mmol/L 03/24/2022 5:13 AM [facility] CO2 23 22 - 29 mmol/L 03/24/2022 5:13 AM [facility] Glucose 103 70 - 115 mg/dL 03/24/2022 5:13 AM [facility] Calcium 9.1 8.4 - 10.2 mg/dL 03/24/2022 5:13 AM [facility] Anion Gap 17 8 - 18 03/24/2022 5:13 AM [facility] BUN/Creatinine Ratio 25(H) 7 - 23 03/24/2022 5:13 AM [facility] Osmolality Calculated 296 270 - 300 mOsm/kg 03/24/2022 5:13 AM [facility] eGFR by CKD-EPI >90 >=90 mL/min/1.7 3 m2 03/24/2022 5:13 AM [facility] Blood BLOOD SPECIMEN / Unknown Lab Venipuncture / Unknown 03/24/2022 2:58 AM CDT 03/24/2022 4:42 AM CDT Petra Fuentes MD LAB - CHEMISTRY MARSHAL MEDEROS [facility] [address] [place] [address], [facility] [phone] * (ABNORMAL) CBC W/O DIFFERENTIAL (03/24/2022 2:58 AM CDT) WBC 11.0(H) 3.5 - 10.5 10? 3 /uL 03/24/2022 5:02 AM [facility] RBC 3.44(L) 4.30 - 5.70 10? 6 /uL 03/24/2022 5:02 AM [facility] Hemoglobin 10.9(L) 12.0 - 17.6 g/dL 03/24/2022 5:02 AM [facility] Hematocrit 33.0(L) 35.2 - 51.7 % 03/24/2022 5:02 AM [facility] MCV 95.9 80.7 - 98.3 fL 03/24/2022 5:02 AM [facility] MCH 31.7 26.7 - 34.0 pg 03/24/2022 5:02 AM [facility] MCHC 33.0 30.8 - 35.9 g/dL 03/24/2022 5:02 AM [facility] Platelet Count 195 150 - 400 10? 3 /uL 03/24/2022 5:02 AM [facility] RDW-SD 47.2 36.0 - 50.0 fL 03/24/2022 5:02 AM [facility] RDW-CV 13.9 11.2 - 14.8 % 03/24/2022 5:02 AM [facility] MPV 12.0 9.4 - 12.9 fL 03/24/2022 5:02 AM [facility] nRBC Absolute 0.00 0 10? 3 /uL 03/24/2022 5:02 AM [facility] nRBC Auto 0.0 0 /100 WBC 03/24/2022 5:02 AM [facility] Blood BLOOD SPECIMEN / Unknown Lab Venipuncture / Unknown 03/24/2022 2:58 AM CDT 03/24/2022 4:42 AM T Petra Fuentes MD LAB - HEMATOLOGY ORD ERABLES [facility] [address] [place] [address], [facility] [phone] * PHOSPHORUS BLOOD (03/24/2022 2:58 AM CDT) Phosphorus 3.1 2.8 - 5.1 mg/dL 03/24/2022 5:13 AM CDT [facility] Blood BLOOD SPECIMEN / Unknown Lab Venipuncture / Unknown 03/24/2022 2:58 AM CDT 03/24/2022 4:42 AM CDT Artur Mcgraw MD LAB - CHEMISTRY ORD ERABLES [address] [address], [facility] [phone] * MAGNESIUM BLOOD (03/24/2022 2:58 AM CDT) Magnesium 1.6 1.6 - 2.6 mg/dL 03/24/2022 5:13 AM CDT [facility] Blood BLOOD SPECIMEN / Unknown Lab Venipuncture / Unknown 03/24/2022 2:58 AM CDT 03/24/2022 4:42 AM CDT Artur Mcgraw MD LAB - CHEMISTRY ORD ERABLES Performing Organization Address City/[facility]/ZIP Co de Phone Number [address] [address], [place] [phone] * (ABNORMAL) GLUCOSE - POINT OF CARE (03/23/2022 4:20 PM CDT) Glucose WB/POC 125(H) 70 - 115 mg/dL 03/23/2022 4:21 PM CDT [facility] Specimen Type Arterial 03/23/2022 4:21 PM CDT [facility] Blood BLOOD SPECIMEN / Unknown 03/23/2022 4:20 PM CDT 03/23/2022 4:21 PM CDT Artur Mcgraw MD LAB - POINT OF CARE ORDERABLES [place] [address] [place] [address], [facility] [phone] * (ABNORMAL) BASIC METABOLIC PANEL (CALCIUM TOTAL) (03/23/2022 3:39 AM CDT) BUN 9 7 - 26 mg/dL 03/23/2022 4:26 AM [facility] Creatinine 0.51(L) 0.71 - 1.16 mg/dL 03/23/2022 4:26 AM [facility] Sodium 140 136 - 145 mmol/L 03/23/2022 4:26 AM [facility] Potassium 3.7 3.5 - 4.5 mmol/L 03/23/2022 4:26 AM [facility] Chloride 106 98 - 107 mmol/L 03/23/2022 4:26 AM [facility] CO2 24 22 - 29 mmol/L 03/23/2022 4:26 AM [facility] Glucose 114 70 - 115 mg/dL 03/23/2022 4:26 AM [facility] Calcium 8.9 8.4 - 10.2 mg/dL 03/23/2022 4:26 AM [facility] Anion Gap 14 8 - 18 03/23/2022 4:26 AM [facility] BUN/Creatinine Ratio 18 7 - 23 03/23/2022 4:26 AM [facility] Osmolality Calculated 290 270 - 300 mOsm/kg 03/23/2022 4:26 AM [facility] eGFR by CKD-EPI >90 >=90 mL/min/1.7 3 m2 03/23/2022 4:26 AM [facility] Blood BLOOD SPECIMEN / Unknown Lab Venipuncture / Unknown 03/23/2022 3:39 AM CDT 03/23/2022 3:57 AM [facility] Petra Fuentes MD LAB - CHEMISTRY ORDE GATITO [facility] [place] [place] Organization Address City/State/ZIP Co de Phone Number [facility] [address] [place] [address], [facility] [phone] * (ABNORMAL) CBC W/O DIFFERENTIAL (03/23/2022 3:39 AM CDT) WBC 9.3 3.5 - 10.5 10? 3 /uL 03/23/2022 4:10 AM [facility] RBC 3.22(L) 4.30 - 5.70 10? 6 /uL 03/23/2022 4:10 AM [facility] Hemoglobin 10.2(L) 12.0 - 17.6 g/dL 03/23/2022 4:10 AM [facility] Hematocrit 31.2(L) 35.2 - 51.7 % 03/23/2022 4:10 AM [facility] MCV 96.9 80.7 - 98.3 fL 03/23/2022 4:10 AM [facility] MCH 31.7 26.7 - 34.0 pg 03/23/2022 4:10 AM [facility] MCHC 32.7 30.8 - 35.9 g/dL 03/23/2022 4:10 AM [facility] Platelet Count 273 150 - 400 10? 3 /uL 03/23/2022 4:10 AM [facility] RDW-SD 48.0 36.0 - 50.0 fL 03/23/2022 4:10 AM [facility] RDW-CV 13.8 11.2 - 14.8 % 03/23/2022 4:10 AM [facility] MPV 10.9 9.4 - 12.9 fL 03/23/2022 4:10 AM [facility] nRBC Absolute 0.00 0 10? 3 /uL 03/23/2022 4:10 AM [facility] nRBC Auto 0.0 0 /100 WBC 03/23/2022 4:10 AM [facility] Blood BLOOD SPECIMEN / Unknown Lab Venipuncture / Unknown 03/23/2022 3:39 AM CDT 03/23/2022 3:57 AM T Petra Fuentes MD LAB - HEMATOLOGY ORD ERABLES [facility] [address] [place] [address], [facility] [phone] * GLUCOSE - POINT OF CARE (03/22/2022 5:05 PM CDT) Glucose WB/POC 108 70 - 115 mg/dL 03/22/2022 5:06 PM CDT [facility] Specimen Type Arterial 03/22/2022 5:06 PM CDT [facility] Blood BLOOD SPECIMEN / Unknown 03/22/2022 5:05 PM CDT 03/22/2022 5:06 PM CDT Petra Fuentes MD LAB - POINT OF CARE ORDERABLES [address] [address], [facility] [phone] * FL SWALLOWING FUNCTION STUDY (03/22/2022 2:20 [...] DATE/TIME OF EXAM: ??03/22/2022 2:24 PM, LOCATION ??[facility] INDICATION: A41.9: Sepsis without acute organ dysfunction, [...] DATE/TIME OF EXAM: 03/22/2022 2:24 PM, LOCATION [facility] INDICATION: A41.9: Sepsis without acute organ dysfunction, [...] 7 - 26 mg/dL 03/22/2022 5:32 AM [facility] Creatinine 0.49(L) 0.71 - 1.16 mg/dL 03/22/2022 5:32 AM [facility] Sodium 141 136 - 145 mmol/L 03/22/2022 5:32 AM [facility] Potassium 3.7 3.5 - 4.5 mmol/L 03/22/2022 5:32 AM [facility] Chloride 106 98 - 107 mmol/L 03/22/2022 5:32 AM [facility] CO2 28 22 - 29 mmol/L 03/22/2022 5:32 AM [facility] Glucose 91 70 - 115 mg/dL 03/22/2022 5:32 AM [facility] Calcium 8.9 8.4 - 10.2 mg/dL 03/22/2022 5:32 AM [facility] Anion Gap 11 8 - 18 03/22/2022 5:32 AM [facility] BUN/Creatinine Ratio 10 7 - 23 03/22/2022 5:32 AM [facility] Osmolality Calculated 289 270 - 300 mOsm/kg 03/22/2022 5:32 AM [facility] eGFR by CKD-EPI >90 >=90 mL/min/1.7 3 m2 03/22/2022 5:32 AM [facility] Blood BLOOD SPECIMEN / Unknown Lab Venipuncture / Unknown 03/22/2022 3:51 AM CDT 03/22/2022 4:39 AM T Petra Fuentes MD LAB - CHEMISTRY MARSHAL MEDEROS [facility] [place] [place] Organization Address City/State/ZIP Co de Phone Number [facility] [address] [place] [address], [facility] [phone] * (ABNORMAL) CBC W/O DIFFERENTIAL (03/22/2022 3:51 AM CDT) WBC 11.4(H) 3.5 - 10.5 10? 3 /uL 03/22/2022 4:50 AM [facility] RBC 3.46(L) 4.30 - 5.70 10? 6 /uL 03/22/2022 4:50 AM [facility] Hemoglobin 11.1(L) 12.0 - 17.6 g/dL 03/22/2022 4:50 AM [facility] Hematocrit 33.6(L) 35.2 - 51.7 % 03/22/2022 4:50 AM [facility] MCV 97.1 80.7 - 98.3 fL 03/22/2022 4:50 AM [facility] MCH 32.1 26.7 - 34.0 pg 03/22/2022 4:50 AM [facility] MCHC 33.0 30.8 - 35.9 g/dL 03/22/2022 4:50 AM [facility] Platelet Count 296 150 - 400 10? 3 /uL 03/22/2022 4:50 AM [facility] RDW-SD 46.7 36.0 - 50.0 fL 03/22/2022 4:50 AM [facility] RDW-CV 13.5 11.2 - 14.8 % 03/22/2022 4:50 AM [facility] MPV 10.9 9.4 - 12.9 fL 03/22/2022 4:50 AM [facility] nRBC Absolute 0.00 0 10? 3 /uL 03/22/2022 4:50 AM [facility] nRBC Auto 0.0 0 /100 WBC 03/22/2022 4:50 AM [facility] Blood BLOOD SPECIMEN / Unknown Lab Venipuncture / Unknown 03/22/2022 3:51 AM CDT 03/22/2022 4:39 AM CDT Petra Fuentes MD LAB - HEMATOLOGY ORD ERABLES [address] [id number], [facility] [phone] * GLUCOSE - POINT OF CARE (03/21/2022 8:39 AM CDT) Glucose WB/POC 109 70 - 115 mg/dL 03/21/2022 8:43 AM [facility] Specimen Type Cap Fingerstick 2021 8:43 AM T [facility] Blood BLOOD SPECIMEN / Unknown 03/21/2022 8:39 AM CDT 03/21/2022 8:43 AM CDT Petra Fuentes MD LAB - POINT OF CARE ORDERABLES [address] [address], [place] [phone] * (ABNORMAL) BASIC METABOLIC PANEL (CALCIUM TOTAL) (03/21/2022 2:19 AM CDT) BUN 6(L) 7 - 26 mg/dL 03/21/2022 3:57 AM [facility] Creatinine 0.51(L) 0.71 - 1.16 mg/dL 03/21/2022 3:57 AM [facility] Sodium 144 136 - 145 mmol/L 03/21/2022 3:57 AM [facility] Potassium 3.8 3.5 - 4.5 mmol/L 03/21/2022 3:57 AM [facility] Chloride 110(H) 98 - 107 mmol/L 03/21/2022 3:57 AM [facility] CO2 28 22 - 29 mmol/L 03/21/2022 3:57 AM [facility] Glucose 93 70 - 115 mg/dL 03/21/2022 3:57 AM [facility] Calcium 8.7 8.4 - 10.2 mg/dL 03/21/2022 3:57 AM [facility] Anion Gap 10 8 - 18 03/21/2022 3:57 AM [facility] BUN/Creatinine Ratio 12 03/21/2022 3:57 AM [facility] Osmolality Calculated 295 270 - 300 mOsm/kg 03/21/2022 3:57 AM [facility] eGFR by CKD-EPI >90 >=90 mL/min/1.7 3 m2 03/21/2022 3:57 AM [facility] Blood BLOOD SPECIMEN / Unknown Lab Venipuncture / Unknown 03/21/2022 2:19 AM CDT 03/21/2022 3:25 AM T Petra Fuentes MD LAB - CHEMISTRY [facility] [place] Organization Address City/State/ZIP Co de Phone Number [facility] [address] [place] [phone], [facility] [phone] * (ABNORMAL) CBC W/O DIFFERENTIAL (03/21/2022 2:19 AM CDT) WBC 9.5 3.5 - 10.5 10? 3 /uL 03/21/2022 3:40 AM [facility] RBC 3.31(L) 4.30 - 5.70 10? 6 /uL 03/21/2022 3:40 AM [facility] Hemoglobin 10.4(L) 12.0 - 17.6 g/dL 03/21/2022 3:40 AM [facility] Hematocrit 31.7(L) 35.2 - 51.7 % 03/21/2022 3:40 AM [facility] MCV 95.8 80.7 - 98.3 fL 03/21/2022 3:40 AM [facility] MCH 31.4 26.7 - 34.0 pg 03/21/2022 3:40 AM [facility] MCHC 32.8 30.8 - 35.9 g/dL 03/21/2022 3:40 AM [facility] Platelet Count 292 150 - 400 10? 3 /uL 03/21/2022 3:40 AM [facility] RDW-SD 46.2 36.0 - 50.0 fL 03/21/2022 3:40 AM [facility] RDW-CV 13.3 11.2 - 14.8 % 03/21/2022 3:40 AM [facility] MPV 11.0 9.4 - 12.9 fL 03/21/2022 3:40 AM [facility] nRBC Absolute 0.00 0 10? 3 /uL 03/21/2022 3:40 AM [facility] nRBC Auto 0.0 0 /100 WBC 03/21/2022 3:40 AM [facility] Blood BLOOD SPECIMEN / Unknown Lab Venipuncture / Unknown 03/21/2022 2:19 AM CDT 03/21/2022 3:25 AM CDT Petra Fuentes MD LAB - HEMATOLOGY ORD ERABLES [facility] [address] [place] [phone], [facility] [phone] * (ABNORMAL) BASIC METABOLIC PANEL (CALCIUM TOTAL) (03/20/2022 3:30 AM CDT) BUN 10 7 - 26 mg/dL 03/20/2022 5:02 AM [facility] Creatinine 0.51(L) 0.71 - 1.16 mg/dL 03/20/2022 5:02 AM [facility] Sodium 141 136 - 145 mmol/L 03/20/2022 5:02 AM [facility] Potassium 3.6 3.5 - 4.5 mmol/L 03/20/2022 5:02 AM [facility] Chloride 109(H) 98 - 107 mmol/L 03/20/2022 5:02 AM [facility] CO2 27 22 - 29 mmol/L 03/20/2022 5:02 AM [facility] Glucose 90 70 - 115 mg/dL 03/20/2022 5:02 AM [facility] Calcium 8.7 8.4 - 10.2 mg/dL 03/20/2022 5:02 AM [facility] Anion Gap 9 8 - 18 03/20/2022 5:02 AM [facility] BUN/Creatinine Ratio 20 7 - 23 03/20/2022 5:02 AM [facility] Osmolality Calculated 291 270 - 300 mOsm/kg 03/20/2022 5:02 AM [facility] eGFR by CKD-EPI >90 >=90 mL/min/1.7 3 m2 03/20/2022 5:02 AM [facility] Blood BLOOD SPECIMEN / Unknown Lab Venipuncture / Unknown 03/20/2022 3:30 AM CDT 03/20/2022 4:31 AM T Petra Fuentes MD LAB - CHEMISTRY MARSHAL MEDEROS [facility] [place] [place] Organization Address City/State/[facility] Co de Phone Number [facility] [address] [place] [address], [facility] [phone] * (ABNORMAL) CBC W/O DIFFERENTIAL (03/20/2022 3:30 AM CDT) WBC 12.7(H) 3.5 - 10.5 10? 3 /uL 03/20/2022 4:34 AM [facility] RBC 3.15(L) 4.30 - 5.70 10? 6 /uL 03/20/2022 4:34 AM [facility] Hemoglobin 9.9(L) 12.0 - 17.6 g/dL 03/20/2022 4:34 AM [facility] Hematocrit 30.7(L) 35.2 - 51.7 % 03/20/2022 4:34 AM [facility] MCV 97.5 80.7 - 98.3 fL 03/20/2022 4:34 AM [facility] MCH 31.4 26.7 - 34.0 pg 03/20/2022 4:34 AM [facility] MCHC 32.2 30.8 - 35.9 g/dL 03/20/2022 4:34 AM [facility] Platelet Count 314 150 - 400 10? 3 /uL 03/20/2022 4:34 AM [facility] RDW-SD 47.0 36.0 - 50.0 fL 03/20/2022 4:34 AM [facility] RDW-CV 13.3 11.2 - 14.8 % 03/20/2022 4:34 AM [facility] MPV 11.1 9.4 - 12.9 fL 03/20/2022 4:34 AM [facility] nRBC Absolute 0.00 0 10? 3 /uL 03/20/2022 4:34 AM [facility] nRBC Auto 0.0 0 /100 WBC 03/20/2022 4:34 AM [facility] Blood BLOOD SPECIMEN / Unknown Lab Venipuncture / Unknown 03/20/2022 3:30 AM CDT 03/20/2022 4:25 AM CDT Petra Fuentes MD LAB - HEMATOLOGY ORD ERABLES [facility] [address] [place] [phone], [facility] [phone] * GLUCOSE - POINT OF CARE (03/19/2022 8:14 PM CDT) Glucose WB/POC 96 70 - 115 mg/dL 03/19/2022 8:18 PM [facility] Specimen Type Cap Fingerstick 2021 8:18 PM [facility] Blood BLOOD SPECIMEN / Unknown 03/19/2022 8:14 PM CDT 03/19/2022 8:18 PM CDT Petra Fuentes MD LAB - POINT OF CARE ORDERABLES Performing Organization Address City/[facility]/ZIP Co de Phone Number [facility] [address] [place] [address], [facility] [phone] * (ABNORMAL) BASIC METABOLIC PANEL (CALCIUM TOTAL) (03/19/2022 2:03 AM CDT) BUN 9 7 - 26 mg/dL 03/19/2022 2:53 AM [facility] Creatinine 0.56(L) 0.71 - 1.16 mg/dL 03/19/2022 2:53 AM [facility] Sodium 143 136 - 145 mmol/L 03/19/2022 2:53 AM [facility] Potassium 3.8 3.5 - 4.5 mmol/L 03/19/2022 2:53 AM [facility] Chloride 107 98 - 107 mmol/L 03/19/2022 2:53 AM [facility] CO2 27 22 - 29 mmol/L 03/19/2022 2:53 AM [facility] Glucose 95 70 - 115 mg/dL 03/19/2022 2:53 AM [facility] Calcium 8.7 8.4 - 10.2 mg/dL 03/19/2022 2:53 AM [facility] Anion Gap 13 8 - 18 03/19/2022 2:53 AM [facility] BUN/Creatinine Ratio 16 7 - 23 03/19/2022 2:53 AM [facility] Osmolality Calculated 294 270 - 300 mOsm/kg 03/19/2022 2:53 AM [facility] eGFR by CKD-EPI >90 >=90 mL/min/1.7 3 m2 03/19/2022 2:53 AM [facility] Blood BLOOD SPECIMEN / Unknown Lab Venipuncture / Unknown 03/19/2022 2:03 AM CDT 03/19/2022 2:23 AM CDT Petra Fuentes MD LAB - CHEMISTRY MARSHAL Diana Organization Address City/State/ZIP Co de Phone Number [facility] [address] [place] [phone], [facility] [phone] * (ABNORMAL) CBC W/O DIFFERENTIAL (03/19/2022 2:03 AM CDT) WBC 9.9 3.5 - 10.5 10? 3 /uL 03/19/2022 2:35 AM [facility] RBC 3.15(L) 4.30 - 5.70 10? 6 /uL 03/19/2022 2:35 AM [facility] Hemoglobin 9.9(L) 12.0 - 17.6 g/dL 03/19/2022 2:35 AM [facility] Hematocrit 30.4(L) 35.2 - 51.7 % 03/19/2022 2:35 AM [facility] MCV 96.5 80.7 - 98.3 fL 03/19/2022 2:35 AM [facility] MCH 31.4 26.7 - 34.0 pg 03/19/2022 2:35 AM [facility] MCHC 32.6 30.8 - 35.9 g/dL 03/19/2022 2:35 AM [facility] Platelet Count 307 150 - 400 10? 3 /uL 03/19/2022 2:35 AM [facility] RDW-SD 46.5 36.0 - 50.0 fL 03/19/2022 2:35 AM [facility] RDW-CV 13.2 11.2 - 14.8 % 03/19/2022 2:35 AM [facility] MPV 10.6 9.4 - 12.9 fL 03/19/2022 2:35 AM [facility] nRBC Absolute 0.00 0 10? 3 /uL 03/19/2022 2:35 AM [facility] nRBC Auto 0.0 0 /100 WBC 03/19/2022 2:35 AM [facility] Blood BLOOD SPECIMEN / Unknown Lab Venipuncture / Unknown 03/19/2022 2:03 AM CDT 03/19/2022 2:23 AM CDT Petra Fuentes MD LAB - HEMATOLOGY ORD ERABLES [facility] [address] [place] [address], [facility] [phone] * (ABNORMAL) BASIC METABOLIC PANEL (CALCIUM TOTAL) (03/18/2022 6:06 AM CDT) BUN 11 7 - 26 mg/dL 03/18/2022 12:17 PM [facility] Creatinine 0.56(L) 0.71 - 1.16 mg/dL 03/18/2022 12:17 PM [facility] Sodium 140 136 - 145 mmol/L 03/18/2022 12:17 PM [facility] Potassium 4.1 3.5 - 4.5 mmol/L 03/18/2022 12:17 PM [facility] Chloride 107 98 - 107 mmol/L 03/18/2022 12:17 PM [facility] CO2 27 22 - 29 mmol/L 03/18/2022 12:17 PM [facility] Glucose 95 70 - 115 mg/dL 03/18/2022 12:17 PM [facility] Calcium 8.9 8.4 - 10.2 mg/dL 03/18/2022 12:17 PM [facility] Anion Gap 10 8 - 18 03/18/2022 12:17 PM [facility] BUN/Creatinine Ratio 20 7 - 23 03/18/2022 12:17 PM [facility] Osmolality Calculated 289 270 - 300 mOsm/kg 03/18/2022 12:17 PM [facility] eGFR by CKD-EPI >90 >=90 mL/min/1.7 3 m2 03/18/2022 12:17 PM [facility] Blood BLOOD SPECIMEN / Unknown Lab Venipuncture / Unknown 03/18/2022 6:06 AM CDT 03/18/2022 6:13 AM CDT Petra Fuentes MD LAB - CHEMISTRY MARSHAL MEDEROS Performing Organization Address [facility]/ZIP Co de Phone Number [address] [phone], [facility] [phone] * (ABNORMAL) VANCOMYCIN LEVEL TROUGH (03/18/2022 6:06 AM CDT) Vancomycin Trough <2.5(L) 10.0 - 20.0 ug/mL 03/18/2022 6:37 AM CDT [facility] Blood BLOOD SPECIMEN / Unknown Lab Venipuncture / Unknown 03/18/2022 6:06 AM CDT 03/18/2022 6:13 AM CDT Narrative [facility] - 03/18/2022 6:37 AM CDT See institution protocol. Blair Mojica MD LAB - CHEMISTRY MARSHAL MEDEROS Performing Organization Address [facility] Co de Phone Number [address] [phone], [facility] [phone] * CT HEAD WO CONTRAST (03/17/2022 5:32 PM CDT) Anatomical Region Laterality Modality Head Computed Tomogra phy 03/18/2022 7:16 AM CDT Impressions 03/18/2022 10:57 AM CDT IMPRESSION: 1.No acute intracranial hemorrhage, midline shift, or significant mass effect. Report dictated by Akbar Barillas MD, (vice president investor relations). I, Wojciech Neil MD have personally reviewed and interpreted this examination/study. > Interpreting Provider: Wojciech Neil MD on 03/18/2022 10:57 AM Narrative 03/18/2022 10:57 AM CDT PROCEDURE: ??CT HEAD WO CONTRAST, DATE/TIME OF EXAM: ??03/17/2022 5:32 PM, LOCATION ??[facility] INDICATION: A41.9: Sepsis without acute organ dysfunction, [...] DATE/TIME OF EXAM: 03/17/2022 5:32 PM, LOCATION [facility] INDICATION: A41.9: Sepsis without acute organ dysfunction, due to unspecifiedorganism (CMS/[facility]) ADDITIONAL CLINICAL INFORMATION: Ordering [...] Report dictated by Akbar Barillas MD, MD (vice president investor relations). Wojciech Thomason MD have personally reviewed and [...] intact. > Dictated by Guilherme Foy MD (vice president investor relations). John Thomason MD have personally reviewed and [...] isintact. > Dictated by Guilherme Foy MD (vice president investor relations). John Thomason MD have personally reviewed and interpreted this examination/study. > Interpreting Provider: John Graham MD on 03/17/2022 11:54 PM Petra Fuentes MD DIAGNOSTIC IMAGING O RDERABLES * GLUCOSE - POINT OF CARE (03/17/2022 1:45 PM CDT) Pathologist [facility] Glucose WB/POC 108 70 - 115 mg/dL 03/17/2022 1:46 PM CDT [facility] Specimen Type Cap Fingerstick 2021 1:46 PM CDT [facility] Blood BLOOD SPECIMEN / Unknown 03/17/2022 1:45 PM CDT 03/17/2022 1:46 PM CDT Petra Fuentes MD LAB - POINT OF CARE ORDERABLES Performing Organization Address City/State/[facility] Co de Phone Number [facility] [address] [place] [phone], [facility] [phone] * (ABNORMAL) COMPREHENSIVE METABOLIC PANEL (03/17/2022 11:12 AM CDT) [facility] BUN 10 7 - 26 mg/dL 03/17/2022 11:59 AM [facility] Creatinine 0.53(L) 0.71 - 1.16 mg/dL 03/17/2022 11:59 AM [facility] Sodium 140 136 - 145 mmol/L 03/17/2022 11:59 AM [facility] Potassium 3.8 3.5 - 4.5 mmol/L 03/17/2022 11:59 AM [facility] Chloride 106 98 - 107 mmol/L 03/17/2022 11:59 AM [facility] CO2 29 22 - 29 mmol/L 03/17/2022 11:59 AM [facility] Glucose 116(H) 70 - 115 mg/dL 03/17/2022 11:59 AM [facility] Calcium 9.0 8.4 - 10.2 mg/dL 03/17/2022 11:59 AM [facility] Protein Total 6.2 6.0 - 8.3 g/dL 03/17/2022 11:59 AM [facility] Albumin 1.8(L) 3.4 - 5.0 g/dL 03/17/2022 11:59 AM [facility] Bilirubin Total 0.2 0.2 - 1.2 mg/dL 03/17/2022 11:59 AM [facility] Alkaline Phosphatase 73 40 - 150 U/L 03/17/2022 11:59 AM [facility] ALT 21 5 - 55 U/L 03/17/2022 11:59 AM [facility] AST 34 5 - 34 U/L 03/17/2022 11:59 AM [facility] Anion Gap 9 8 - 18 03/17/2022 11:59 AM [facility] BUN/Creatinine Ratio 19 7 - 23 03/17/2022 11:59 AM [facility] Osmolality Calculated 290 270 - 300 mOsm/kg 03/17/2022 11:59 AM [facility] Albumin/Globulin Ratio 0.4(L) 1.1 - 2.3 03/17/2022 11:59 AM [facility] eGFR by CKD-EPI >90 >=90 mL/min/1.7 3 m2 03/17/2022 11:59 AM [facility] Blood BLOOD SPECIMEN / Unknown Lab Venipuncture / Unknown 03/17/2022 11:12 AM CDT 03/17/2022 11:33 AM T Petra Fuentes MD LAB - CHEMISTRY MARSHAL MEDEROS [facility] [place] [place] Organization Address City/[facility] Co de Phone Number [address] [phone], [facility] [phone] * (ABNORMAL) CBC W/O DIFFERENTIAL (03/17/2022 11:12 AM CDT) WBC 11.2(H) 3.5 - 10.5 10? 3 /uL 03/17/2022 11:37 AM [facility] RBC 3.35(L) 4.30 - 5.70 10? 6 /uL 03/17/2022 11:37 AM [facility] Hemoglobin 10.7(L) 12.0 - 17.6 g/dL 03/17/2022 11:37 AM [facility] Hematocrit 32.7(L) 35.2 - 51.7 % 03/17/2022 11:37 AM [facility] MCV 97.6 80.7 - 98.3 fL 03/17/2022 11:37 AM [facility] MCH 31.9 26.7 - 34.0 pg 03/17/2022 11:37 AM [facility] MCHC 32.7 30.8 - 35.9 g/dL 03/17/2022 11:37 AM [facility] Platelet Count 344 150 - 400 10? 3 /uL 03/17/2022 11:37 AM [facility] RDW-SD 45.9 36.0 - 50.0 fL 03/17/2022 11:37 AM [facility] RDW-CV 12.9 11.2 - 14.8 % 03/17/2022 11:37 AM [facility] MPV 10.7 9.4 - 12.9 fL 03/17/2022 11:37 AM [facility] nRBC Absolute 0.00 0 10? 3 /uL 03/17/2022 11:37 AM [facility] nRBC Auto 0.0 0 /100 WBC 03/17/2022 11:37 AM [facility] Blood BLOOD SPECIMEN / Unknown Lab Venipuncture / Unknown 03/17/2022 11:12 AM CDT 03/17/2022 11:33 AM CDT Petra Fuentes MD LAB - HEMATOLOGY ORD ERABLES [facility] [address] [place] [address], [facility] [phone] * (ABNORMAL) LACOSAMIDE (03/17/2022 5:25 AM CDT) Lacosamide 10.6(H) 1.0 - 10.0 ug/mL 03/23/2022 1:14 PM CDT [facility] ([facility]) Comment: INTERPRETIVE INFORMATION: Lacosamide, Serum or [...] developed and its performance characteristics determined by [employer]. It has not been cleared or approved by the US Food and Drug Administration. This test was performed in a CLIA-certified laboratory and is intended for clinical purposes. Performed By: [place] [address] Agriculture Department Chair: Power Milian MD, PhD Blood BLOOD SPECIMEN / Unknown Lab Venipuncture / Unknown 03/17/2022 5:25 AM CDT 03/17/2022 5:43 AM CDT Petra Fuentes MD LAB - CHEMISTRY MARSHAL MEDEROS [facility]) [address] [place] [address] * GLUCOSE - POINT OF CARE (03/16/2022 10:11 AM CDT) Glucose WB/POC 87 70 - 115 mg/dL 03/16/2022 10:16 AM CDT [facility] Specimen Type Arterial 03/16/2022 10:16 AM CDT [facility] Blood BLOOD SPECIMEN / Unknown 03/16/2022 10:11 AM CDT 03/16/2022 10:16 AM CDT Blair Mojica MD LAB - POINT OF CARE ORDERABLES [address] [phone], [facility] [phone] * MAGNESIUM BLOOD (03/16/2022 6:19 AM CDT) Magnesium 1.6 1.6 - 2.6 mg/dL 03/16/2022 6:52 AM [facility] Blood BLOOD SPECIMEN / Unknown Lab Venipuncture / Unknown 03/16/2022 6:19 AM CDT 03/16/2022 6:25 AM CDT Blair Mojica MD LAB - CHEMISTRY MARSHAL Diana Organization Address [facility]/ZIP Co de Phone Number [facility] [address] [place] [address], [facility] [phone] * (ABNORMAL) RENAL FUNCTION PANEL (03/16/2022 6:19 AM CDT) BUN 12 7 - 26 mg/dL 03/16/2022 6:52 AM [facility] Creatinine 0.69(L) 0.71 - 1.16 mg/dL 03/16/2022 6:52 AM [facility] Sodium 142 136 - 145 mmol/L 03/16/2022 6:52 AM [facility] Potassium 4.2 3.5 - 4.5 mmol/L 03/16/2022 6:52 AM [facility] Chloride 107 98 - 107 mmol/L 03/16/2022 6:52 AM [facility] CO2 29 22 - 29 mmol/L 03/16/2022 6:52 AM [facility] Glucose 85 70 - 115 mg/dL 03/16/2022 6:52 AM [facility] Albumin 1.6(L) 3.4 - 5.0 g/dL 03/16/2022 6:52 AM [facility] Calcium 8.5 8.4 - 10.2 mg/dL 03/16/2022 6:52 AM [facility] Phosphorus 3.2 2.8 - 5.1 mg/dL 03/16/2022 6:52 AM [facility] Anion Gap 10 - 18 03/16/2022 6:52 AM [facility] BUN/Creatinine Ratio 17 7 - 23 03/16/2022 6:52 AM [facility] Osmolality Calculated 293 270 - 300 mOsm/kg 03/16/2022 6:52 AM [facility] eGFR by CKD-EPI >90 >=90 mL/min/1.7 3 m2 03/16/2022 6:52 AM [facility] Blood BLOOD SPECIMEN / Unknown Lab Venipuncture / Unknown 03/16/2022 6:19 AM CDT 03/16/2022 6:25 AM CDT Blair Mojica MD LAB - CHEMISTRY MARSHAL MEDEROS [facility] [place] [place] Organization Address City/[facility] Co de Phone Number [facility] [address] [place] [phone], [facility] [phone] * (ABNORMAL) CBC W AUTO DIFFERENTIAL (03/16/2022 6:19 AM CDT) WBC 8.9 3.5 - 10.5 10? 3 /uL 03/16/2022 6:31 AM [facility] RBC 3.15(L) 4.30 - 5.70 10? 6 /uL 03/16/2022 6:31 AM [facility] Hemoglobin 10.0(L) 12.0 - 17.6 g/dL 03/16/2022 6:31 AM [facility] Hematocrit 31.0(L) 35.2 - 51.7 % 03/16/2022 6:31 AM [facility] MCV 98.4(H) 80.7 - 98.3 fL 03/16/2022 6:31 AM [facility] MCH 31.7 26.7 - 34.0 pg 03/16/2022 6:31 AM [facility] MCHC 32.3 30.8 - 35.9 g/dL 03/16/2022 6:31 AM [facility] Platelet Count 282 150 - 400 10? 3 /uL 03/16/2022 6:31 AM [facility] RDW-SD 45.4 36.0 - 50.0 fL 03/16/2022 6:31 AM [facility] RDW-CV 12.7 11.2 - 14.8 % 03/16/2022 6:31 AM [facility] MPV 10.8 9.4 - 12.9 fL 03/16/2022 6:31 AM [facility] nRBC Absolute 0.00 0 10? 3 /uL 03/16/2022 6:31 AM [facility] nRBC Auto 0.0 0 /100 WBC 03/16/2022 6:31 AM [facility] Neutrophils % 64.9 35.0 - 70.0 % 03/16/2022 6:31 AM [facility] Lymphocytes % 18.7(L) 20.0 - 43.0 % 03/16/2022 6:31 AM [facility] Monocytes % 11.0 5.0 - 13.0 % 03/16/2022 6:31 AM [facility] Eosinophils % 4.0 0.0 - 6.0 % 03/16/2022 6:31 AM [facility] Basophil % 0.2 0.0 - 2.0 % 03/16/2022 6:31 AM [facility] Neutrophils Absolute 5.76 1.60 - 7.00 10? 3 /uL 03/16/2022 6:31 AM [facility] Lymphocyte Absolute 1.66 1.10 - 3.90 10? 3 /uL 03/16/2022 6:31 AM [facility] Monocytes Absolute 0.98 0.26 - 1.07 10? 3 /uL 03/16/2022 6:31 AM [facility] Eosinophils Absolute 0.36 0.00 - 0.47 10? 3 /uL 03/16/2022 6:31 AM [facility] Basophils Absolute 0.02 0.00 - 0.08 10? 3 /uL 03/16/2022 6:31 AM [facility] Immature Granulocytes % 1.2(H) 0.0 - 1.0 % 03/16/2022 6:31 AM [facility] Immature Granulocytes Absolute 0.11 03/16/2022 6:31 AM [facility] Blood BLOOD SPECIMEN / Unknown Lab Venipuncture / Unknown 03/16/2022 6:19 AM CDT 03/16/2022 6:25 AM T Blair Mojica MD LAB - HEMATOLOGY ORD ERABLES Performing Organization Address City/State/[facility] Co de Phone Number [facility] [address] [place] [address], [facility] [phone] * PATHOLOGY TISSUE (03/15/2022 10:16 AM CDT) Case Report Surgical Pathology Report ? Case: [id number] ? Authorizing Provider: ??Anna Membreno MD ? Collected: ? 03/15/2022 10:16 AM ? Ordering Location: ? [facility] ?Received: ?03/15/2022 11:09 AM ? Pathologist: ? Naa Meza MD ? Specimen: ?Amputation Leg AK, Leg, Left ? 03/17/2022 1:38 PM CDT [facility] Final Diagnosis Leg, left, above knee amputation (A): - Skin with ulceration and necrosis - Underlying bone with marrow fibrosis, negative for osteomyelitis - Vascular calcifications - Soft tissue margins appear viable 03/17/2022 1:38 PM CDT [facility] Microscopic Description and Comment Microscopic examination substantiates the final diagnosis. 03/17/2022 1:38 PM CDT [facility] Clinical History The patient is [...] femoral artery significant stenosis. 03/17/2022 1:38 PM [facility] Gross Description The requisition and specimen label(s) are identified with the patient's name, Mojgan Tabor. Received in formalin, specimen A , is a left bcuer-arv-excd amputation, 26.5 cm heel to toe, 49 [...] with stenosis. There are no thrombi present. Endorsement Clerk sections are submitted as follows: A1-medial fibrous lesion, A2-tip of the toe lesion with underlying bone following decalcification, X4-kwyfy-ekeiamh from the fifth toe, decalcified, A4-proximal skin and soft tissue margin, en face, A5-popliteal artery, A6-posterior tibial artery, A7-anterior tibial artery. MS 03/17/2022 1:38 PM [facility] Disclaimer The performance characteristics of all immunohistochemical and indirect immunofluorescence stains (if any) cited in this report were determined by the Histopathology Laboratory of [facility]. 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 [address], [facility] [phone] * VANCOMYCIN LEVEL TROUGH (03/15/2022 6:38 AM CDT) Vancomycin Trough 15.1 10.0 - 20.0 ug/mL 03/15/2022 8:01 AM CDT [facility] Blood BLOOD SPECIMEN / Unknown Lab Venipuncture / Unknown 03/15/2022 6:38 AM CDT 03/15/2022 7:29 AM CDT Narrative [facility] - 03/15/2022 8:01 AM CDT See institution protocol. Blair Mojica MD LAB - CHEMISTRY MARSHAL MEDEROS Performing Organization Address [facility]/ZIP Co de Phone Number [facility] [address] [place] [address], [facility] [phone] * MRI FOOT LEFT WWO CONTRAST (03/15/2022 [...] R78.81: Bacteremia I73.9: PAD (peripheral artery disease) ([facility]) ADDITIONAL CLINICAL INFORMATION: Ordering [...] R78.81: Bacteremia I73.9: PAD (peripheral artery disease) ([facility]) ADDITIONAL CLINICAL INFORMATION: Ordering [...] * MAGNESIUM BLOOD (03/14/2022 10:03 PM CDT) Pathologist [facility] Magnesium 1.8 1.6 - 2.6 mg/dL 03/14/2022 10:38 PM [facility] Blood BLOOD SPECIMEN / Unknown Venipuncture / Unknown 03/14/2022 10:03 PM CDT 03/14/2022 10:07 PM CDT Blair Mojica MD LAB - CHEMISTRY MARSHAL MEDEROS [facility] [place] Organization Address [facility] Co de Phone Number [address] [id number] [phone] * (ABNORMAL) RENAL FUNCTION PANEL (03/14/2022 10:03 PM CDT) Pathologist [facility] BUN 9 7 - 26 mg/dL 03/14/2022 10:38 PM [facility] Creatinine 0.52(L) 0.71 - 1.16 mg/dL 03/14/2022 10:38 PM [facility] Sodium 140 136 - 145 mmol/L 03/14/2022 10:38 PM [facility] Potassium 3.8 3.5 - 4.5 mmol/L 03/14/2022 10:38 PM [facility] Chloride 104 98 - 107 mmol/L 03/14/2022 10:38 PM [facility] CO2 28 22 - 29 mmol/L 03/14/2022 10:38 PM [facility] Glucose 108 70 - 115 mg/dL 03/14/2022 10:38 PM [facility] Albumin 1.8(L) 3.4 - 5.0 g/dL 03/14/2022 10:38 PM [facility] Calcium 9.1 8.4 - 10.2 mg/dL 03/14/2022 10:38 PM [facility] Phosphorus 2.3(L) 2.8 - 5.1 mg/dL 03/14/2022 10:38 PM [facility] Anion Gap 12 8 - 18 03/14/2022 10:38 PM [facility] BUN/Creatinine Ratio 17 7 - 23 03/14/2022 10:38 PM [facility] Osmolality Calculated 289 270 - 300 mOsm/kg 03/14/2022 10:38 PM [facility] eGFR by CKD-EPI >90 >=90 mL/min/1.7 3 m2 03/14/2022 10:38 PM [facility] Blood BLOOD SPECIMEN / Unknown Venipuncture / Unknown 03/14/2022 10:03 PM CDT 03/14/2022 10:07 PM T Blair Mojica MD LAB - CHEMISTRY MARSHAL MEDEROS [facility] [place] [place] Organization Address City/State/ZIP Co de Phone Number [facility] [address] [place] [phone], [facility] [phone] * (ABNORMAL) CBC W AUTO DIFFERENTIAL (03/14/2022 10:03 PM T) WBC 10.1 3.5 - 10.5 10? 3 /uL 03/14/2022 10:28 PM [facility] RBC 3.54(L) 4.30 - 5.70 10? 6 /uL 03/14/2022 10:28 PM [facility] Hemoglobin 11.4(L) 12.0 - 17.6 g/dL 03/14/2022 10:28 PM [facility] Hematocrit 33.4(L) 35.2 - 51.7 % 03/14/2022 10:28 PM [facility] MCV 94.4 80.7 - 98.3 fL 03/14/2022 10:28 PM [facility] MCH 32.2 26.7 - 34.0 pg 03/14/2022 10:28 PM [facility] MCHC 34.1 30.8 - 35.9 g/dL 03/14/2022 10:28 PM [facility] Platelet Count 295 150 - 400 10? 3 /uL 03/14/2022 10:28 PM [facility] Comment:Confirmed by repeat analysis. RDW-SD 43.1 36.0 - 50.0 fL 03/14/2022 10:28 PM [facility] RDW-CV 12.4 11.2 - 14.8 % 03/14/2022 10:28 PM [facility] MPV 11.3 9.4 - 12.9 fL 03/14/2022 10:28 PM [facility] nRBC Absolute 0.00 0 10? 3 /uL 03/14/2022 10:28 PM [facility] nRBC Auto 0.0 0 /100 WBC 03/14/2022 10:28 PM [facility] Neutrophils % 58.5 35.0 - 70.0 % 03/14/2022 10:28 PM [facility] Lymphocytes % 21.3 20.0 - 43.0 % 03/14/2022 10:28 PM [facility] Monocytes % 16.3(H) 5.0 - 13.0 % 03/14/2022 10:28 PM [facility] Eosinophils % 2.8 0.0 - 6.0 % 03/14/2022 10:28 PM [facility] Basophil % 0.2 0.0 - 2.0 % 03/14/2022 10:28 PM [facility] Neutrophils Absolute 5.92 1.60 - 7.00 10? 3 /uL 03/14/2022 10:28 PM [facility] Lymphocyte Absolute 2.15 1.10 - 3.90 10? 3 /uL 03/14/2022 10:28 PM [facility] Monocytes Absolute 1.65(H) 0.26 - 1.07 10? 3 /uL 03/14/2022 10:28 PM [facility] Eosinophils Absolute 0.28 0.00 - 0.47 10? 3 /uL 03/14/2022 10:28 PM [facility] Basophils Absolute 0.02 0.00 - 0.08 10? 3 /uL 03/14/2022 10:28 PM CDT [facility] Immature Granulocytes % 0.9 0.0 - 1.0 % 03/14/2022 10:28 PM CDT [facility] Immature Granulocytes Absolute 0.09 03/14/2022 10:28 PM CDT [facility] Blood BLOOD SPECIMEN / Unknown Venipuncture / Unknown 03/14/2022 10:03 PM CDT 03/14/2022 10:07 PM CDT Blair Mojica MD LAB - HEMATOLOGY ORD ERABLES [facility] [address] [place] [address], [place] [phone] * TYPE + SCREEN PANEL (03/14/2022 10:01 PM CDT) Antibody Screen NEG 10:45 PM CDT [facility] ABO Rh O POS 03/14/2022 10:45 PM CDT [facility] Blood Bank BLOOD SPECIMEN / Unknown Venipuncture / Unknown 03/14/2022 10:01 PM CDT 03/14/2022 10:07 PM CDT Blair Mojica MD LAB - BLOOD BANK ORD BRENDA Performing Organization Address [facility]/ZIP Co de Phone Number [facility] [address] [place] [address], [place] [phone] * (ABNORMAL) PHOSPHORUS BLOOD (03/14/2022 4:58 AM CDT) Phosphorus 2.3(L) 2.8 - 5.1 mg/dL 03/14/2022 7:09 AM CDT [facility] Blood BLOOD SPECIMEN / Unknown Lab Venipuncture / Unknown 03/14/2022 4:58 AM CDT 03/14/2022 6:46 AM CDT Blair Mojica MD LAB - CHEMISTRY MARSHAL MEDEROS [facility] [address] [place] [address], [facility] [phone] * MAGNESIUM BLOOD (03/14/2022 4:58 AM CDT) Pathologist [facility] Magnesium 1.7 1.6 - 2.6 mg/dL 03/14/2022 7:09 AM [facility] Blood BLOOD SPECIMEN / Unknown Lab Venipuncture / Unknown 03/14/2022 4:58 AM CDT 03/14/2022 6:46 AM CDT Blair Mojica MD LAB - CHEMISTRY MARSHAL MEDEROS [facility] [place] [place] Organization Address City/State/ZIP Co de Phone Number [facility] [address] [place] [address], [facility] [phone] * (ABNORMAL) COMPREHENSIVE METABOLIC PANEL (03/14/2022 4:58 AM CDT) Pathologist [facility] BUN 11 7 - 26 mg/dL 03/14/2022 7:09 AM [facility] Creatinine 0.49(L) 0.71 - 1.16 mg/dL 03/14/2022 7:09 AM [facility] Sodium 137 136 - 145 mmol/L 03/14/2022 7:09 AM [facility] Potassium 3.8 3.5 - 4.5 mmol/L 03/14/2022 7:09 AM [facility] Chloride 107 98 - 107 mmol/L 03/14/2022 7:09 AM [facility] CO2 26 22 - 29 mmol/L 03/14/2022 7:09 AM [facility] Glucose 79 70 - 115 mg/dL 03/14/2022 7:09 AM [facility] Calcium 9.0 8.4 - 10.2 mg/dL 03/14/2022 7:09 AM [facility] Protein Total 5.8(L) 6.0 - 8.3 g/dL 03/14/2022 7:09 AM [facility] Albumin 1.7(L) 3.4 - 5.0 g/dL 03/14/2022 7:09 AM [facility] Bilirubin Total 0.3 0.2 - 1.2 mg/dL 03/14/2022 7:09 AM [facility] Alkaline Phosphatase 73 40 - 150 U/L 03/14/2022 7:09 AM [facility] ALT 23 5 - 55 U/L 03/14/2022 7:09 AM [facility] AST 35(H) 5 - 34 U/L 03/14/2022 7:09 AM [facility] Anion Gap 8 8 - 18 03/14/2022 7:09 AM [facility] BUN/Creatinine Ratio 22 7 - 23 03/14/2022 7:09 AM [facility] Osmolality Calculated 282 270 - 300 mOsm/kg 03/14/2022 7:09 AM [facility] Albumin/Globulin Ratio 0.4(L) 1.1 - 2.3 03/14/2022 7:09 AM [facility] eGFR by CKD-EPI >90 >=90 mL/min/1.7 3 m2 03/14/2022 7:09 AM [facility] Blood BLOOD SPECIMEN / Unknown Lab Venipuncture / Unknown 03/14/2022 4:58 AM CDT 03/14/2022 6:46 AM CDT Blair Mojica MD LAB - CHEMISTRY MARSHAL MEDEROS [facility] [place] [place] Organization Address City/State/ZIP Co de Phone Number [address] [address], [facility] [phone] * (ABNORMAL) CBC W AUTO DIFFERENTIAL (03/14/2022 4:58 AM CDT) WBC 9.2 3.5 - 10.5 10? 3 /uL 03/14/2022 6:51 AM [facility] RBC 3.23(L) 4.30 - 5.70 10? 6 /uL 03/14/2022 6:51 AM [facility] Hemoglobin 10.4(L) 12.0 - 17.6 g/dL 03/14/2022 6:51 AM [facility] Hematocrit 30.5(L) 35.2 - 51.7 % 03/14/2022 6:51 AM [facility] MCV 94.4 80.7 - 98.3 fL 03/14/2022 6:51 AM [facility] MCH 32.2 26.7 - 34.0 pg 03/14/2022 6:51 AM [facility] MCHC 34.1 30.8 - 35.9 g/dL 03/14/2022 6:51 AM [facility] Platelet Count 157 150 - 400 10? 3 /uL 03/14/2022 6:51 AM [facility] RDW-SD 43.0 36.0 - 50.0 fL 03/14/2022 6:51 AM [facility] RDW-CV 12.4 11.2 - 14.8 % 03/14/2022 6:51 AM [facility] MPV 12.9 9.4 - 12.9 fL 03/14/2022 6:51 AM [facility] nRBC Absolute 0.00 0 10? 3 /uL 03/14/2022 6:51 AM [facility] nRBC Auto 0.0 0 /100 WBC 03/14/2022 6:51 AM [facility] Neutrophils % 60.6 35.0 - 70.0 % 03/14/2022 6:51 AM [facility] Lymphocytes % 20.1 20.0 - 43.0 % 03/14/2022 6:51 AM [facility] Monocytes % 15.7(H) 5.0 - 13.0 % 03/14/2022 6:51 AM [facility] Eosinophils % 2.3 0.0 - 6.0 % 03/14/2022 6:51 AM [facility] Basophil % 0.3 0.0 - 2.0 % 03/14/2022 6:51 AM [facility] Neutrophils Absolute 5.60 1.60 - 7.00 10? 3 /uL 03/14/2022 6:51 AM [facility] Lymphocyte Absolute 1.86 1.10 - 3.90 10? 3 /uL 03/14/2022 6:51 AM [facility] Monocytes Absolute 1.45(H) 0.26 - 1.07 10? 3 /uL 03/14/2022 6:51 AM CDT [facility] Eosinophils Absolute 0.21 0.00 - 0.47 10? 3 /uL 03/14/2022 6:51 AM CDT [facility] Basophils Absolute 0.03 0.00 - 0.08 10? 3 /uL 03/14/2022 6:51 AM CDT [facility] Immature Granulocytes % 1.0 0.0 - 1.0 % 03/14/2022 6:51 AM CDT [facility] Immature Granulocytes Absolute 0.09 03/14/2022 6:51 AM CDT [facility] Blood BLOOD SPECIMEN / Unknown Lab Venipuncture / Unknown 03/14/2022 4:58 AM CDT 03/14/2022 6:32 AM CDT Blair Mojica MD LAB - HEMATOLOGY ORD ERABLES [facility] [address] [place] [address], [place] [phone] * (ABNORMAL) GLUCOSE - POINT OF CARE (03/13/2022 11:00 PM CDT) Glucose WB/POC 134(H) 70 - 115 mg/dL 03/13/2022 11:01 PM CDT [facility] Specimen Type Cap Fingerstick 2021 11:01 PM CDT [facility] Blood BLOOD SPECIMEN / Unknown 03/13/2022 11:00 PM CDT 03/13/2022 11:01 PM CDT Blair Mojica MD LAB - POINT OF CARE ORDERABLES [facility] [address] [place] [address], [place] [phone] * VANCOMYCIN LEVEL TROUGH (03/13/2022 10:50 PM CDT) Vancomycin Trough 16.9 10.0 - 20.0 ug/mL 03/13/2022 11:21 PM CDT [facility] Blood BLOOD SPECIMEN / Unknown Venipuncture / Unknown 03/13/2022 10:50 PM CDT 03/13/2022 10:57 PM CDT Narrative [facility] - 03/13/2022 11:21 PM CDT See institution protocol. Blair Mojica MD LAB - CHEMISTRY MARSHAL MEDEROS Performing Organization Address City/[facility]/ZIP Co de Phone Number [address] [address], [place] [phone] * (ABNORMAL) GLUCOSE - POINT OF CARE (03/13/2022 8:46 AM CDT) Glucose WB/POC 119(H) 70 - 115 mg/dL 03/13/2022 8:51 AM CDT [facility] Specimen Type Cap Fingerstick 2021 8:51 AM CDT [facility] Blood BLOOD SPECIMEN / Unknown 03/13/2022 8:46 AM CDT 03/13/2022 8:51 AM CDT Blair Mojica MD LAB - POINT OF CARE ORDERABLES Performing Organization Address [facility]/ZIP Co de Phone Number [address] [address], [place] [phone] * MAGNESIUM BLOOD (03/13/2022 4:19 AM CDT) Magnesium 2.1 1.6 - 2.6 mg/dL 03/13/2022 5:52 AM CDT [facility] Blood BLOOD SPECIMEN / Unknown Lab Venipuncture / Unknown 03/13/2022 4:19 AM CDT 03/13/2022 5:25 AM CDT Blair Mojica MD LAB - CHEMISTRY MARSHAL MEDEROS Performing Organization Address City/[facility]/ZIP Co de Phone Number [address] [address], [place] [phone] * (ABNORMAL) RENAL FUNCTION PANEL (03/13/2022 4:19 AM CDT) BUN 14 7 - 26 mg/dL 03/13/2022 5:52 AM [facility] Creatinine 0.61(L) 0.71 - 1.16 mg/dL 03/13/2022 5:52 AM [facility] Sodium 141 136 - 145 mmol/L 03/13/2022 5:52 AM [facility] Potassium 4.0 3.5 - 4.5 mmol/L 03/13/2022 5:52 AM [facility] Chloride 108(H) 98 - 107 mmol/L 03/13/2022 5:52 AM [facility] CO2 25 22 - 29 mmol/L 03/13/2022 5:52 AM [facility] Glucose 76 70 - 115 mg/dL 03/13/2022 5:52 AM [facility] Albumin 2.0(L) 3.4 - 5.0 g/dL 03/13/2022 5:52 AM [facility] Calcium 9.3 8.4 - 10.2 mg/dL 03/13/2022 5:52 AM [facility] Phosphorus 2.8 2.8 - 5.1 mg/dL 03/13/2022 5:52 AM [facility] Anion Gap 12 8 - 18 03/13/2022 5:52 AM [facility] BUN/Creatinine Ratio 23 7 - 23 03/13/2022 5:52 AM [facility] Osmolality Calculated 291 270 - 300 mOsm/kg 03/13/2022 5:52 AM [facility] eGFR by CKD-EPI >90 >=90 mL/min/1.7 3 m2 03/13/2022 5:52 AM [facility] Blood BLOOD SPECIMEN / Unknown Lab Venipuncture / Unknown 03/13/2022 4:19 AM CDT 03/13/2022 5:25 AM T Blair Mojica MD LAB - CHEMISTRY MARSHAL Diana Organization Address City/State/ZIP Co de Phone Number [facility] [address] [place] [address] [phone] * (ABNORMAL) CBC W AUTO DIFFERENTIAL (03/13/2022 4:19 AM T) [facility] Signature WBC 10.7(H) 3.5 - 10.5 10? 3 /uL 03/13/2022 5:43 AM [facility] RBC 3.84(L) 4.30 - 5.70 10? 6 /uL 03/13/2022 5:43 AM [facility] Hemoglobin 12.2 12.0 - 17.6 g/dL 03/13/2022 5:43 AM [facility] Hematocrit 37.4 35.2 - 51.7 % 03/13/2022 5:43 AM [facility] MCV 97.4 80.7 - 98.3 fL 03/13/2022 5:43 AM [facility] MCH 31.8 26.7 - 34.0 pg 03/13/2022 5:43 AM [facility] MCHC 32.6 30.8 - 35.9 g/dL 03/13/2022 5:43 AM [facility] Platelet Count 180 150 - 400 10? 3 /uL 03/13/2022 5:43 AM [facility] RDW-SD 44.3 36.0 - 50.0 fL 03/13/2022 5:43 AM [facility] RDW-CV 12.4 11.2 - 14.8 % 03/13/2022 5:43 AM [facility] MPV 12.2 9.4 - 12.9 fL 03/13/2022 5:43 AM [facility] nRBC Absolute 0.00 0 10? 3 /uL 03/13/2022 5:43 AM [facility] nRBC Auto 0.0 0 /100 WBC 03/13/2022 5:43 AM [facility] Neutrophils % 62.1 35.0 - 70.0 % 03/13/2022 5:43 AM [facility] Lymphocytes % 20.9 20.0 - 43.0 % 03/13/2022 5:43 AM [facility] Monocytes % 13.4(H) 5.0 - 13.0 % 03/13/2022 5:43 AM CDT [facility] Eosinophils % 2.5 0.0 - 6.0 % 03/13/2022 5:43 AM CDT [facility] Basophil % 0.3 0.0 - 2.0 % 03/13/2022 5:43 AM CDT [facility] Neutrophils Absolute 6.64 1.60 - 7.00 10? 3 /uL 03/13/2022 5:43 AM CDT [facility] Lymphocyte Absolute 2.23 1.10 - 3.90 10? 3 /uL 03/13/2022 5:43 AM CDT [facility] Monocytes Absolute 1.43(H) 0.26 - 1.07 10? 3 /uL 03/13/2022 5:43 AM T [facility] Eosinophils Absolute 0.27 0.00 - 0.47 10? 3 /uL 03/13/2022 5:43 AM CDT [facility] Basophils Absolute 0.03 0.00 - 0.08 10? 3 /uL 03/13/2022 5:43 AM CDT [facility] Immature Granulocytes % 0.8 0.0 - 1.0 % 03/13/2022 5:43 AM T [facility] Immature Granulocytes Absolute 0.09 03/13/2022 5:43 AM CDT [facility] Blood BLOOD SPECIMEN / Unknown Lab Venipuncture / Unknown 03/13/2022 4:19 AM CDT 03/13/2022 5:25 AM CDT Blair Mojica MD LAB - HEMATOLOGY ORD ERABLES [facility] [address] [place] [address], [facility] [phone] * CULTURE BLOOD (03/12/2022 2:00 AM CDT) Culture No growth day 5 [facility] 03/17/2022 8:[address] [facility] Blood PERIPHERAL BLOOD / Unknown Lab Venipuncture / Unknown 03/12/2022 2:00 AM CDT 03/12/2022 2:30 AM CDT Blair Mojica MD LAB - MICROBIOLOGY O VANESSA Performing Organization Address City/[facility]/ZIP Co de Phone Number [facility] [address] [place] [address], [facility] [phone] * CULTURE BLOOD (03/12/2022 1:58 AM CDT) Culture No growth day 5 [facility] 03/17/2022 8:32 AM CDT [facility] Blood PERIPHERAL BLOOD / Unknown Lab Venipuncture / Unknown 03/12/2022 1:58 AM CDT 03/12/2022 2:30 AM CDT Blair Mojica MD LAB - MICROBIOLOGY O VANESSA Performing Organization Address City/[facility] Co de Phone Number [facility] [address] [place] [address], [facility] [phone] * MAGNESIUM BLOOD (03/12/2022 1:58 AM CDT) Magnesium 1.8 1.6 - 2.6 mg/dL 03/12/2022 3:12 AM CDT [facility] Blood BLOOD SPECIMEN / Unknown Lab Venipuncture / Unknown 03/12/2022 1:58 AM CDT 03/12/2022 2:32 AM CDT Blair Mojica MD LAB - CHEMISTRY MARSHAL MEDEROS Performing Organization Address City/[facility]/ZIP Co de Phone Number [facility] [address] [address], [facility] [phone] * (ABNORMAL) CBC W AUTO DIFFERENTIAL (03/12/2022 1:58 AM CDT) WBC 12.4(H) 3.5 - 10.5 10? 3 /uL 03/12/2022 2:50 AM CDT [facility] RBC 3.55(L) 4.30 - 5.70 10? 6 /uL 03/12/2022 2:50 AM CDT [facility] Hemoglobin 11.3(L) 12.0 - 17.6 g/dL 03/12/2022 2:50 AM [facility] Hematocrit 33.4(L) 35.2 - 51.7 % 03/12/2022 2:50 AM [facility] MCV 94.1 80.7 - 98.3 fL 03/12/2022 2:50 AM [facility] MCH 31.8 26.7 - 34.0 pg 03/12/2022 2:50 AM [facility] MCHC 33.8 30.8 - 35.9 g/dL 03/12/2022 2:50 AM [facility] Platelet Count 225 150 - 400 10? 3 /uL 03/12/2022 2:50 AM [facility] RDW-SD 41.9 36.0 - 50.0 fL 03/12/2022 2:50 AM [facility] RDW-CV 11.9 11.2 - 14.8 % 03/12/2022 2:50 AM [facility] MPV 11.7 9.4 - 12.9 fL 03/12/2022 2:50 AM [facility] nRBC Absolute 0.00 0 10? 3 /uL 03/12/2022 2:50 AM [facility] nRBC Auto 0.0 0 /100 WBC 03/12/2022 2:50 AM [facility] Neutrophils % 72.5(H) 35.0 - 70.0 % 03/12/2022 2:50 AM [facility] Lymphocytes % 14.2(L) 20.0 - 43.0 % 03/12/2022 2:50 AM [facility] Monocytes % 11.0 5.0 - 13.0 % 03/12/2022 2:50 AM [facility] Eosinophils % 1.6 0.0 - 6.0 % 03/12/2022 2:50 AM [facility] Basophil % 0.2 0.0 - 2.0 % 03/12/2022 2:50 AM [facility] Neutrophils Absolute 8.98(H) 1.60 - 7.00 10? 3 /uL 03/12/2022 2:50 AM [facility] Lymphocyte Absolute 1.76 1.10 - 3.90 10? 3 /uL 03/12/2022 2:50 AM CDT [facility] Monocytes Absolute 1.36(H) 0.26 - 1.07 10? 3 /uL 03/12/2022 2:50 AM [facility] Eosinophils Absolute 0.20 0.00 - 0.47 10? 3 /uL 03/12/2022 2:50 AM T [facility] Basophils Absolute 0.03 0.00 - 0.08 10? 3 /uL 03/12/2022 2:50 AM T [facility] Immature Granulocytes % 0.5 0.0 - 1.0 % 03/12/2022 2:50 AM [facility] Immature Granulocytes Absolute 0.06 03/12/2022 2:50 AM [facility] Blood BLOOD SPECIMEN / Unknown Lab Venipuncture / Unknown 03/12/2022 1:58 AM CDT 03/12/2022 2:32 AM CDT Blair Mojica MD LAB - HEMATOLOGY ORD ERABLES [facility] [address] [place] [address], [facility] [phone] * (ABNORMAL) RENAL FUNCTION PANEL (03/12/2022 1:58 AM CDT) BUN 10 7 - 26 mg/dL 03/12/2022 3:12 AM [facility] Creatinine 0.55(L) 0.71 - 1.16 mg/dL 03/12/2022 3:12 AM [facility] Sodium 139 136 - 145 mmol/L 03/12/2022 3:12 AM [facility] Potassium 3.3(L) 3.5 - 4.5 mmol/L 03/12/2022 3:12 AM [facility] Chloride 106 98 - 107 mmol/L 03/12/2022 3:12 AM [facility] CO2 26 22 - 29 mmol/L 03/12/2022 3:12 AM [facility] Glucose 104 70 - 115 mg/dL 03/12/2022 3:12 AM [facility] Albumin 1.9(L) 3.4 - 5.0 g/dL 03/12/2022 3:12 AM [facility] Calcium 8.8 8.4 - 10.2 mg/dL 03/12/2022 3:12 AM [facility] Phosphorus 2.9 2.8 - 5.1 mg/dL 03/12/2022 3:12 AM [facility] Anion Gap 10 8 - 18 03/12/2022 3:12 AM [facility] BUN/Creatinine Ratio 18 7 - 23 03/12/2022 3:12 AM [facility] Osmolality Calculated 287 270 - 300 mOsm/kg 03/12/2022 3:12 AM [facility] eGFR by CKD-EPI >90 >=90 mL/min/1.7 3 m2 03/12/2022 3:12 AM [facility] Blood BLOOD SPECIMEN / Unknown Lab Venipuncture / Unknown 03/12/2022 1:58 AM CDT 03/12/2022 2:32 AM CDT Blair Mojica MD LAB - CHEMISTRY [facility] [address] [address], [facility] [phone] * VALPROIC ACID LEVEL (03/12/2022 1:58 AM CDT) Pathologist [facility] Valproic Acid Total 95 50 - 100 ug/mL 03/12/2022 3:49 AM CDT [facility] Blood BLOOD SPECIMEN / Unknown Lab Venipuncture / Unknown 03/12/2022 1:58 AM CDT 03/12/2022 2:32 AM CDT Blair Mojica MD LAB - CHEMISTRY [facility] [address] [address], [facility] [phone] * VANCOMYCIN LEVEL TROUGH (03/11/2022 11:39 PM CDT) Vancomycin Trough 12.5 10.0 - 20.0 ug/mL 03/12/2022 12:10 AM CDT [facility] Blood BLOOD SPECIMEN / Unknown Venipuncture / Unknown 03/11/2022 11:39 PM CDT 03/11/2022 11:43 PM CDT Narrative [facility] - 03/12/2022 12:10 AM CDT See institution protocol. Blair Mojica MD LAB - CHEMISTRY [facility] [address] [place] [address], [facility] [phone] * ECHO COMPLETE (03/11/2022 3:29 PM CDT) Anatomical Region Laterality Modality Chest Echo 03/11/2022 2:38 PM CDT Narrative Procedure Note Misael Ritter MD - 03/11/2022 Blair Mojica MD ECHOCARDIOGRAPHY RAD IANT * (ABNORMAL) URINALYSIS REFLEX TO MICROSCOPIC NO CULTURE (03/11/2022 1:29 PM CDT) Color UA Yellow Straw, Yellow 03/11/2022 4:10 PM CDT [facility] Clarity UA Clear Clear 03/11/2022 4:10 PM CDT [facility] Specific [place] UA 1.010 1.005 - 1.030 03/11/2022 4:10 PM CDT [facility] pH UA 7.0 5.0 - 8.0 pH 03/11/2022 4:10 PM CDT [facility] Protein UA Negative Negative 03/11/2022 4:10 PM CDT [facility] Glucose UA Negative Negative 03/11/2022 4:10 PM CDT [facility] Ketone UA Negative Negative 03/11/2022 4:10 PM CDT [facility] Bilirubin UA Negative Negative 03/11/2022 4:10 PM CDT [facility] Blood UA Negative Negative 03/11/2022 4:10 PM CDT [facility] Nitrite UA Negative Negative 03/11/2022 4:10 PM CDT [facility] Leukocyte Esterase Negative Negative 03/11/2022 4:10 PM CDT [facility] Urobilinogen UA Negative Negative mg/dL 03/11/2022 4:10 PM CDT [facility] RBC UA 0-2 None Seen, 0-2, 3-5 /HPF 03/11/2022 4:10 PM CDT [facility] WBC UA 0-5 None Seen, 0-5 /HPF 03/11/2022 4:10 PM CDT [facility] Bacteria UA Trace(A) None /HPF 03/11/2022 4:10 PM CDT [facility] Squamous Epithelial Cells UA 0-2 None Seen, 0-2, 3-5 /HPF 03/11/2022 4:10 PM T [facility] Mucus UA 1+ /LPF 03/11/2022 4:10 PM CDT [facility] Urine URINE SPECIMEN OBTAINED BY CLEAN CATCH PROCEDURE / Unknown Collection / Unknown 03/11/2022 1:29 PM CDT 03/11/2022 1:42 PM CDT Narrative [facility] - 03/11/2022 4:10 PM CDT Blair Mojica MD LAB - URINALYSIS ORD ERABLES [facility] [address] [place] [address], [facility] [phone] * CT HEAD WO CONTRAST (03/11/2022 11:15 [...] DATE/TIME OF EXAM: ??03/11/2022 11:15 AM, LOCATION ??[facility] INDICATION: R78.81: Bacteremia ADDITIONAL CLINICAL INFORMATION: Ordering [...] CONTRAST, DATE/TIME OF EXAM: 03/11/2022 11:15AM, LOCATION [facility] INDICATION: R78.81: Bacteremia ADDITIONAL CLINICAL INFORMATION: Ordering [...] - 5.1 mg/dL 03/11/2022 11:35 AM CDT [facility] Blood BLOOD SPECIMEN / Unknown Venipuncture / Unknown 03/11/2022 10:59 AM CDT 03/11/2022 11:05 AM CDT Blair Mojica MD LAB - CHEMISTRY MARSHAL MEDEROS Performing Organization Address City/[facility]/ZIP Co de Phone Number [address] [address], [facility] [phone] * MAGNESIUM BLOOD (03/11/2022 10:59 AM CDT) Magnesium 1.8 1.6 - 2.6 mg/dL 03/11/2022 11:35 AM CDT [facility] Blood BLOOD SPECIMEN / Unknown Venipuncture / Unknown 03/11/2022 10:59 AM CDT 03/11/2022 11:05 AM CDT Blair Mojica MD LAB - CHEMISTRY MARSHAL MEDEROS [address] [address], [facility] [phone] * LACTIC ACID BLOOD (03/11/2022 10:59 AM CDT) Lactic Acid-Stat 0.7 <=2.0 mmol/L 03/11/2022 11:29 AM CDT [facility] Blood BLOOD SPECIMEN / Unknown Venipuncture / Unknown 03/11/2022 10:59 AM CDT 03/11/2022 11:05 AM CDT Blair Mojica MD LAB - CHEMISTRY MARSHAL Diana Organization Address City/State/ZIP Co de Phone Number [facility] [address] [place] [address], [facility] [phone] * (ABNORMAL) BLOOD GASES ART + COOX PANEL (03/11/2022 10:59 AM T) pH Arterial 7.47(H) 7.35 - 7.45 pH 03/11/2022 11:06 AM [facility] pO2 Arterial 80 80 - 100 mmHg 03/11/2022 11:06 AM [facility] pCO2 Arterial 41 35 - 45 mmHg 11:06 AM [facility] HCO3 Arterial 30 20 - 30 mmol/l 03/11/2022 11:06 AM [facility] BE Arterial 5.6(H) -2.0 - 2.0 mmol/L 03/11/2022 11:06 AM [facility] Oxyhemoglobin Arterial 95.0 % 03/11/2022 11:06 AM [facility] Dexoyhemoglobin (HHB) % 2.1 % 03/11/2022 11:06 AM [facility] Methemoglobin 0.9 0.0 - 2.0 % 03/11/2022 11:06 AM [facility] Carboxyhemoglobin 1.9 0.0 - 2.0 % 2021 11:06 AM [facility] O2 Content Arterial 15.7 Interpret within clinical context ml/dL 03/11/2022 11:06 AM [facility] Hemoglobin by COOX 11.7(L) 12.0 - 17.6 g/dL 03/11/2022 11:06 AM [facility] O2 Saturation Arterial 98 90 - 100 % 03/11/2022 11:06 AM [facility] FI O2 Arterial 21.0 % 03/11/2022 11:06 AM [facility] Blood, arterial ARTERIAL BLOOD SPECIMEN / Unknown Arterial Puncture / Unknown 03/11/2022 10:59 AM CDT 03/11/2022 11:03 AM CDT Narrative [facility] - 03/11/2022 11:06 AM CDT Carboxyhemoglobin Normal Concentration: Non-smokers: 0-2%; Smokers: 0-9%; Toxic: >20% Blair Mojica MD LAB - BLOOD GASES OR DERABLES Performing Organization Address [facility] de Phone Number [facility] [address] [place] [phone], [facility] [phone] * (ABNORMAL) PT-INR [facility] (03/11/2022 10:59 AM CDT) PT 15.4(H) 12.1 - 14.8 Seconds 03/11/2022 12:10 PM CDT [facility] INR 1.2 See Comment 03/11/2022 12:10 PM CDT [facility] Comment:The suggested therap eutic range for standard coumadin (warfarin) therapy is an INR of 2.0-3.0. For high-risk patients (Mechanical Mitral Valve Prosthesis, etc.), the suggested prophylactic therapeutic range is an INR of 2.5-3.5. Blood BLOOD SPECIMEN / Unknown Venipuncture / Unknown 03/11/2022 10:59 AM CDT 03/11/2022 11:05 AM CDT Blair Mojica MD LAB - COAGULATION OR DERABLES Performing Organization Address [facility] de Phone Number [address] [address], [facility] [phone] * (ABNORMAL) COMPREHENSIVE METABOLIC PANEL (03/11/2022 10:59 AM CDT) BUN 7 7 - 26 mg/dL 03/11/2022 11:35 AM CDT [facility] Creatinine 0.50(L) 0.71 - 1.16 mg/dL 03/11/2022 11:35 AM CDT [facility] Sodium 139 136 - 145 mmol/L 03/11/2022 11:35 AM CDT [facility] Potassium 3.2(L) 3.5 - 4.5 mmol/L 03/11/2022 11:35 AM [facility] Chloride 104 98 - 107 mmol/L 03/11/2022 11:35 AM [facility] CO2 30(H) 22 - 29 mmol/L 03/11/2022 11:35 AM [facility] Glucose 103 70 - 115 mg/dL 03/11/2022 11:35 AM [facility] Calcium 8.6 8.4 - 10.2 mg/dL 03/11/2022 11:35 AM [facility] Protein Total 5.9(L) 6.0 - 8.3 g/dL 03/11/2022 11:35 AM [facility] Albumin 1.9(L) 3.4 - 5.0 g/dL 03/11/2022 11:35 AM [facility] Bilirubin Total 0.4 0.2 - 1.2 mg/dL 03/11/2022 11:35 AM [facility] Alkaline Phosphatase 71 40 - 150 U/L 03/11/2022 11:35 AM [facility] ALT 26 5 - 55 U/L 03/11/2022 11:35 AM [facility] AST 60(H) 5 - 34 U/L 03/11/2022 11:35 AM [facility] Anion Gap 8 8 - 18 03/11/2022 11:35 AM [facility] BUN/Creatinine Ratio 14 7 - 23 03/11/2022 11:35 AM [facility] Osmolality Calculated 286 270 - 300 mOsm/kg 03/11/2022 11:35 AM [facility] Albumin/Globulin Ratio 0.5(L) 1.1 - 2.3 03/11/2022 11:35 AM [facility] eGFR by CKD-EPI >90 >=90 mL/min/1.7 3 m2 03/11/2022 11:35 AM [facility] Blood BLOOD SPECIMEN / Unknown Venipuncture / Unknown 03/11/2022 10:59 AM CDT 03/11/2022 11:05 AM T Blair Mojica MD LAB - CHEMISTRY MARSHAL MEDEROS [facility] [place] [place] Organization Address City/State/ZIP Co de Phone Number [facility] [address] [place] [address], [facility] [phone] * (ABNORMAL) CBC W AUTO DIFFERENTIAL (03/11/2022 10:59 AM CDT) WBC 11.7(H) 3.5 - 10.5 10? 3 /uL 03/11/2022 11:29 AM [facility] RBC 3.47(L) 4.30 - 5.70 10? 6 /uL 03/11/2022 11:29 AM [facility] Hemoglobin 11.1(L) 12.0 - 17.6 g/dL 03/11/2022 11:29 AM [facility] Hematocrit 32.5(L) 35.2 - 51.7 % 03/11/2022 11:29 AM [facility] MCV 93.7 80.7 - 98.3 fL 03/11/2022 11:29 AM [facility] MCH 32.0 26.7 - 34.0 pg 03/11/2022 11:29 AM [facility] MCHC 34.2 30.8 - 35.9 g/dL 03/11/2022 11:29 AM [facility] Platelet Count 208 150 - 400 10? 3 /uL 03/11/2022 11:29 AM [facility] RDW-SD 41.5 36.0 - 50.0 fL 03/11/2022 11:29 AM [facility] RDW-CV 12.0 11.2 - 14.8 % 03/11/2022 11:29 AM [facility] MPV 11.4 9.4 - 12.9 fL 03/11/2022 11:29 AM [facility] nRBC Absolute 0.00 0 10? 3 /uL 03/11/2022 11:29 AM [facility] nRBC Auto 0.0 0 /100 WBC 03/11/2022 11:29 AM [facility] Neutrophils % 72.2(H) 35.0 - 70.0 % 03/11/2022 11:29 AM [facility] Lymphocytes % 13.8(L) 20.0 - 43.0 % 03/11/2022 11:29 AM [facility] Monocytes % 12.2 5.0 - 13.0 % 03/11/2022 11:29 AM [facility] Eosinophils % 0.9 0.0 - 6.0 % 03/11/2022 11:29 AM [facility] Basophil % 0.2 0.0 - 2.0 % 03/11/2022 11:29 AM [facility] Neutrophils Absolute 8.44(H) 1.60 - 7.00 10? 3 /uL 03/11/2022 11:29 AM [facility] Lymphocyte Absolute 1.61 1.10 - 3.90 10? 3 /uL 03/11/2022 11:29 AM [facility] Monocytes Absolute 1.42(H) 0.26 - 1.07 10? 3 /uL 03/11/2022 11:29 AM [facility] Eosinophils Absolute 0.11 0.00 - 0.47 10? 3 /uL 03/11/2022 11:29 AM [facility] Basophils Absolute 0.02 0.00 - 0.08 10? 3 /uL 03/11/2022 11:29 AM [facility] Immature Granulocytes % 0.7 0.0 - 1.0 % 03/11/2022 11:29 AM [facility] Immature Granulocytes Absolute 0.08 03/11/2022 11:29 AM [facility] Blood BLOOD SPECIMEN / Unknown Venipuncture / Unknown 03/11/2022 10:59 AM CDT 03/11/2022 11:05 AM T Blair Mojica MD LAB - HEMATOLOGY ORD ERABLES [facility] [address] [place] [address], [facility] [phone] * GLUCOSE - POINT OF CARE (03/11/2022 10:41 AM CDT) Glucose WB/POC 107 70 - 115 mg/dL 03/11/2022 10:53 AM CDT [facility] Specimen Type Cap Fingerstick 2021 10:53 AM CDT [facility] Blood BLOOD SPECIMEN / Unknown 03/11/2022 10:41 AM CDT 03/11/2022 10:53 AM CDT Blair Mojica MD LAB - POINT OF CARE ORDERABLES Performing Organization Address City/[facility]/ZIP Co de Phone Number [facility] [address] [place] [address], [facility] [phone] * CULTURE BLOOD (03/11/2022 3:48 AM CDT) Culture No growth day 5 JELLY 03/16/2022 8:02 AM CDT [facility] Blood PERIPHERAL BLOOD / Unknown Lab Venipuncture / Unknown 03/11/2022 3:48 AM CDT 03/11/2022 3:52 AM CDT Blair Mojica MD LAB - MICROBIOLOGY O RDBRENDA Performing Organization Address City/[facility]/ZIP Co de Phone Number [facility] [address] [place] [address], [facility] [phone] * CULTURE BLOOD (03/11/2022 3:37 AM CDT) Culture No growth day 5 JELLY 03/16/2022 8:02 AM CDT [facility] Blood PERIPHERAL BLOOD / Unknown Lab Venipuncture / Unknown 03/11/2022 3:37 AM CDT 03/11/2022 3:52 AM CDT Blair Mojica MD LAB - MICROBIOLOGY O RDBRENDA Performing Organization Address City/[facility]/ZIP Co de Phone Number [facility] [address] [place] [address], [facility] [phone] * CT HEAD WO CONTRAST (03/10/2022 4:04 [...] DATE/TIME OF EXAM: ??03/10/2022 4:04 PM, LOCATION ??[facility] INDICATION: G93.40: Acute encephalopathy EXAMINATION: Computed tomography [...] DATE/TIME OF EXAM: 03/10/2022 4:04 PM, LOCATION [facility] INDICATION: G93.40: Acute encephalopathy EXAMINATION: Computed tomography [...] 10? 3 /uL 03/10/2022 12:15 PM CDT [facility] RBC 3.76(L) 4.30 - 5.70 10? 6 /uL 03/10/2022 12:15 PM [facility] Hemoglobin 11.9(L) 12.0 - 17.6 g/dL 03/10/2022 12:15 PM [facility] Hematocrit 36.1 35.2 - 51.7 % 03/10/2022 12:15 PM [facility] MCV 96.0 80.7 - 98.3 fL 03/10/2022 12:15 PM [facility] MCH 31.6 26.7 - 34.0 pg 03/10/2022 12:15 PM [facility] MCHC 33.0 30.8 - 35.9 g/dL 03/10/2022 12:15 PM [facility] Platelet Count 183 150 - 400 10? 3 /uL 03/10/2022 12:15 PM [facility] RDW-SD 42.8 36.0 - 50.0 fL 03/10/2022 12:15 PM [facility] RDW-CV 12.0 11.2 - 14.8 % 03/10/2022 12:15 PM [facility] MPV 11.7 9.4 - 12.9 fL 03/10/2022 12:15 PM [facility] nRBC Absolute 0.02(H) 0 10? 3 /uL 03/10/2022 12:15 PM [facility] nRBC Auto 0.1(H) 0 /100 WBC 03/10/2022 12:15 PM [facility] Blood BLOOD SPECIMEN / Unknown Lab Venipuncture / Unknown 03/10/2022 11:47 AM CDT 03/10/2022 12:07 PM CDT Vicky Silva MD LAB - HEMATOLOGY ORD ERABLES [facility] [address] [place] [phone], [facility] [phone] * MAGNESIUM BLOOD (03/10/2022 11:47 AM CDT) Magnesium 1.7 1.6 - 2.6 mg/dL 03/10/2022 12:38 PM [facility] Blood BLOOD SPECIMEN / Unknown Lab Venipuncture / Unknown 03/10/2022 11:47 AM CDT 03/10/2022 12:08 PM CDT Vicky Silva MD LAB - CHEMISTRY ORDByron MEDEROS [facility] [place] Organization Address City/State/ZIP Co de Phone Number [facility] [address] [place] [address], [facility] [phone] * (ABNORMAL) RENAL FUNCTION PANEL (03/10/2022 11:47 AM CDT) BUN 14 7 - 26 mg/dL 03/10/2022 12:38 PM [facility] Creatinine 0.53(L) 0.71 - 1.16 mg/dL 03/10/2022 12:38 PM [facility] Sodium 140 136 - 145 mmol/L 03/10/2022 12:38 PM [facility] Potassium 3.8 3.5 - 4.5 mmol/L 03/10/2022 12:38 PM [facility] Chloride 105 98 - 107 mmol/L 03/10/2022 12:38 PM [facility] CO2 25 22 - 29 mmol/L 03/10/2022 12:38 PM [facility] Glucose 105 70 - 115 mg/dL 03/10/2022 12:38 PM [facility] Albumin 2.1(L) 3.4 - 5.0 g/dL 03/10/2022 12:38 PM [facility] Calcium 9.3 8.4 - 10.2 mg/dL 03/10/2022 12:38 PM [facility] Phosphorus 2.0(L) 2.8 - 5.1 mg/dL 03/10/2022 12:38 PM [facility] Anion Gap 14 8 - 18 03/10/2022 12:38 PM [facility] BUN/Creatinine Ratio 26(H) 7 - 23 03/10/2022 12:38 PM [facility] Osmolality Calculated 291 270 - 300 mOsm/kg 03/10/2022 12:38 PM [facility] eGFR by CKD-EPI >90 >=90 mL/min/1.7 3 m2 03/10/2022 12:38 PM CDT [facility] Blood BLOOD SPECIMEN / Unknown Lab Venipuncture / Unknown 03/10/2022 11:47 AM CDT 03/10/2022 12:08 PM CDT Vicky Silva MD LAB - CHEMISTRY MARSHAL MEDEROS Performing Organization Address City/[facility]/ZIP Co de Phone Number [place] [phone] [place] [address], [facility] [phone] * (ABNORMAL) LACOSAMIDE (03/10/2022 11:47 AM CDT) [facility] Lacosamide 16.1(H) 1.0 - 10.0 ug/mL 03/17/2022 3:47 AM CDT [facility] ([facility]) Comment: INTERPRETIVE INFORMATION: Lacosamide, Serum or [...] developed and its performance characteristics determined by [facility]. It has not been cleared or approved by the [place] Food and Drug Administration. This test was performed in a CLIA-certified laboratory and is intended for clinical purposes. Performed By: [facility] [address] [place] [address] Agriculture Department Chair: Power Milian MD, PhD Blood BLOOD SPECIMEN / Unknown Lab Venipuncture / Unknown 03/10/2022 11:47 AM CDT 03/10/2022 12:03 PM CDT Vicky Silva MD LAB - CHEMISTRY MARSHAL MEDEROS Performing Organization Address City/[facility]/ZIP Co de Phone Number [facility]) [address] * CLOBAZAM QUANT BLOOD (03/10/2022 11:47 AM CDT) Clobazam 236 30 - 300 ng/mL 03/14/2022 3:29 PM CDT [facility] ([facility]) Comment: INTERPRETIVE INFORMATION: Clobazam and Metabolite, [...] influenced by drug-drug interactions and by poor [id number] metabolism. ??The metabolite, N-desmethylclobazam has about 20% activity of clobazam. ??Adverse effects may include constipation, somnolence, sedation and skin rash. ??The concomitant use of clobazam with other central nervous system (MINI LAB OPERATOR) depressants may increase the risk of somnolence and sedation. Test developed and characteristics determined by [facility]. See Compliance Statement B: [email or web address]/CS N-Desmethylclobazam 683 300 - 3000 ng/mL 03/14/2022 3:29 PM CDT [facility] ([facility]) Comment: Performed By: [facility] [address] [place] [address] Agriculture Department Chair: Power Milian MD, PhD Blood BLOOD SPECIMEN / Unknown Lab Venipuncture / Unknown 03/10/2022 11:47 AM CDT 03/10/2022 12:03 PM CDT Vicky Silva MD LAB - CHEMISTRY MARSHAL MEDEROS [facility] [facility]) [address] [place] [phone], [facility] * (ABNORMAL) VANCOMYCIN LEVEL TROUGH (03/10/2022 11:47 AM CDT) [facility] Vancomycin Trough 7.7(L) 10.0 - 20.0 ug/mL 03/10/2022 12:38 PM CDT [facility] Blood BLOOD SPECIMEN / Unknown Lab Venipuncture / Unknown 03/10/2022 11:47 AM CDT 03/10/2022 12:08 PM CDT Narrative [facility] - 03/10/2022 12:38 PM CDT See institution protocol. 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 Elmo Ozuna MD LAB - MICROBIO LOGY ORDERABLES [facility] [address] [place], [place] [address], [facility] [phone] * (ABNORMAL) COMPREHENSIVE METABOLIC PANEL (03/09/2022 4:11 AM CDT) BUN 15 7 - 26 mg/dL 03/09/2022 4:41 AM [facility] Creatinine 0.63(L) 0.71 - 1.16 mg/dL 03/09/2022 4:41 AM [facility] Sodium 144 136 - 145 mmol/L 03/09/2022 4:41 AM [facility] Potassium 4.0 3.5 - 4.5 mmol/L 03/09/2022 4:41 AM [facility] Chloride 100 98 - 107 mmol/L 03/09/2022 4:41 AM [facility] CO2 25 22 - 29 mmol/L 03/09/2022 4:41 AM [facility] Glucose 134(H) 70 - 115 mg/dL 03/09/2022 4:41 AM [facility] Calcium 9.3 8.4 - 10.2 mg/dL 03/09/2022 4:41 AM [facility] Protein Total 6.7 6.0 - 8.3 g/dL 03/09/2022 4:41 AM [facility] Albumin 2.4(L) 3.4 - 5.0 g/dL 03/09/2022 4:41 AM [facility] Bilirubin Total 0.6 0.2 - 1.2 mg/dL 03/09/2022 4:41 AM [facility] Alkaline Phosphatase 74 40 - 150 U/L 03/09/2022 4:41 AM [facility] ALT 27 5 - 55 U/L 03/09/2022 4:41 AM [facility] AST 75(H) 5 - 34 U/L 03/09/2022 4:41 AM [facility] Anion Gap 23(H) 8 - 18 03/09/2022 4:41 AM [facility] BUN/Creatinine Ratio 24(H) 7 - 23 03/09/2022 4:41 AM [facility] Osmolality Calculated 301(H) 270 - 300 mOsm/kg 03/09/2022 4:41 AM [facility] Albumin/Globulin Ratio 0.6(L) 1.1 - 2.3 03/09/2022 4:41 AM [facility] eGFR by CKD-EPI >90 >=90 mL/min/1.7 3 m2 03/09/2022 4:41 AM [facility] Blood BLOOD SPECIMEN / Unknown Venipuncture / Unknown 03/09/2022 4:11 AM CDT 03/09/2022 4:15 AM CDT Neha Palomino MD LAB - CHEMISTRY MARSHAL MEDEROS [facility] [place] [place] Organization Address [facility]/State/ZIP Co de Phone Number [facility] [address] [place] [phone], [facility] [phone] * (ABNORMAL) PROCALCITONIN LEVEL (03/09/2022 2:00 AM CDT) PROCALCITONIN 1.00(H) <=0.10 ng/mL 03/09/2022 4:06 AM T [facility] Blood BLOOD SPECIMEN / Unknown Venipuncture / Unknown 03/09/2022 2:00 AM CDT 03/09/2022 3:28 AM CDT Narrative [facility] - 03/09/2022 4:06 AM CDT The [...] Change in Procalcitonin Calculator is available at [email or web address] ?? If clinical picture has not improved and PCT remains high, reevaluate and consider treatment failure or other causes. Neha Palomino MD LAB - CHEMISTRY [facility]SHAL MEDEROS Performing Organization Address [facility]/ZIP Co de Phone Number [address] [address], [facility] [phone] * CULTURE BLOOD (03/09/2022 2:00 AM CDT) Culture No growth day 5 JELLY 03/14/2022 8:34 AM CDT [facility] Blood PERIPHERAL BLOOD / Unknown Venipuncture / Unknown 03/09/2022 2:00 AM CDT 03/09/2022 3:28 AM CDT Neha Palomino MD LAB - MICROBIOLOGY O RDERALETTY [facility] [address] [place] [address], [facility] [phone] * (ABNORMAL) DIFFERENTIAL MANUAL (03/09/2022 1:35 AM CDT) WBC (corrected for NRBC) 23.0 10? 3 /uL 03/09/2022 2:34 AM [facility] Total Cell Count 100 03/09/2022 2:34 AM T [facility] Neutrophils Absolute Manual 16.79(H) 1.60 - 7.00 10? 3 /uL 03/09/2022 2:34 AM [facility] Comment:(BANDS+SEGS) x WBC = NEUT # (ANC) Lymphocyte Absolute Manual 2.07 1.10 - 3.90 10? 3 /uL 03/09/2022 2:34 AM T [facility] Monocytes Absolute Manual 4.14(H) 0.26 - 1.07 10? 3 /uL 03/09/2022 2:34 AM [facility] Band % Manual 3 0 - 10 % 03/09/2022 2:34 AM [facility] Neutrophil % Manual 70 35 - 70 % 03/09/2022 2:34 AM [facility] Lymphocyte % Manual 9(L) 20 - 43 % 03/09/2022 2:34 AM [facility] Monocytes % Manual 18(H) 5 - 13 % 03/09/2022 2:34 AM [facility] Platelet Estimate Adequate Adequate 03/09/2022 2:34 AM [facility] [place] Cells 1+(A) None 03/09/2022 2:34 AM [facility] Blood BLOOD SPECIMEN / Unknown Venipuncture / Unknown 03/09/2022 1:35 AM CDT 03/09/2022 2:00 AM CDT Neha Palomino MD LAB - HEMATOLOGY ORD ERABLES [facility] [address] [place] [address], [place] [phone] * (ABNORMAL) CULTURE BLOOD (03/09/2022 1:35 AM CDT) Culture Growth of Staphylococcus aureus(AA) JELLY 03/14/2022 7:14 PM CDT [facility] Comment:Staphylococcus aureu s methicillin-susceptible (MSSA) detected by penicillin binding protein immunoassay. Gram Stain Gram-positive cocci in clusters(AA) 03/14/2022 7:14 PM CDT [facility] Blood BLOOD SPECIMEN / Unknown Venipuncture / Unknown 03/09/2022 1:35 AM CDT 03/09/2022 1:59 AM CDT Narrative [facility] - 03/14/2022 7:14 PM CDT Positive [...] Palomino MD LAB - MICROBIOLOGY O RDERABLES [facility] [address] [place] [address], [facility] [phone] * (ABNORMAL) CBC W AUTO DIFFERENTIAL (03/09/2022 1:35 AM CDT) WBC 23.0(H) 3.5 - 10.5 10? 3 /uL 03/09/2022 2:26 AM CDT [facility] RBC 4.18(L) 4.30 - 5.70 10? 6 /uL 03/09/2022 2:26 AM [facility] Hemoglobin 13.6 12.0 - 17.6 g/dL 03/09/2022 2:26 AM [facility] Hematocrit 40.0 35.2 - 51.7 % 03/09/2022 2:26 AM [facility] MCV 95.7 80.7 - 98.3 fL 03/09/2022 2:26 AM [facility] MCH 32.5 26.7 - 34.0 pg 03/09/2022 2:26 AM [facility] [place] [facility] 34.0 30.8 - 35.9 g/dL 03/09/2022 2:26 AM [facility] Platelet Count 160 150 - 400 10? 3 /uL 03/09/2022 2:26 AM [facility] Comment: Checked by peripheral smear. Few fibrin strands visible This is an appended report. ??These results have been appended to a previously preliminary verified report. RDW-SD 43.7 36.0 - 50.0 fL 03/09/2022 2:26 AM [facility] RDW-CV 12.4 11.2 - 14.8 % 03/09/2022 2:26 AM [facility] MPV 03/09/2022 2:26 AM [facility] Comment:Unable to Report Immature Platelet Fraction 03/09/2022 2:26 AM [facility] Comment:Unable to Report' nRBC Absolute 0.00 0 10? 3 /uL 03/09/2022 2:26 AM [facility] nRBC Auto 0.0 0 /100 WBC 03/09/2022 2:26 AM [facility] Blood BLOOD SPECIMEN / Unknown Venipuncture / Unknown 03/09/2022 1:35 AM CDT 03/09/2022 2:00 AM T Neha Palomino MD LAB - HEMATOLOGY ORD ERABLES [facility] [address] [place] [address], [facility] [phone] * (ABNORMAL) LACTIC ACID BLOOD (03/09/2022 1:35 AM CDT) Lactic Acid-Stat 3.0(H) <=2.0 mmol/L 03/09/2022 2:22 AM CDT [facility] Blood BLOOD SPECIMEN / Unknown Venipuncture / Unknown 03/09/2022 1:35 AM CDT 03/09/2022 2:00 AM CDT Elmo Ozuna MD LAB - CHEMISTR Y ORDERABLES [facility] [address] [place] [address], [facility] [phone] * CT CHEST ABDOMEN PELVIS W CONT [...] pelvis. > Dictated by Brandee Celestin MD (vice president investor relations). I, John Graham MD have personally reviewed and interpreted this examination/study. > Interpreting Provider: John Graham MD on 03/09/2022 9:27 AM Narrative 03/09/2022 9:27 AM CDT PROCEDURE: ??CT CHEST ABDOMEN PELVIS W CONT, DATE/TIME OF EXAM: ??03/08/2022 10:05 PM, LOCATION ??[facility] INDICATION: [...] CONT, DATE/TIME OF EXAM:03/08/2022 10:05 PM, LOCATION [facility] INDICATION: [...] Mild dependent left basilar consolidation with mild [id number]. Mild posterior right upper lung tree-in-bud opacities. [...] pelvis. > Dictated by Brandee Celestin MD (vice president investor relations). I, John Graham MD have personally reviewed and interpreted this examination/study. > Interpreting Provider: John Graham MD on 03/09/2022 9:27 AM [address] MD CT ORDERABLES * SARS-COV-2 (COVID-19)+INFLU A+B PCR RAPID (03/08/2022 9:38 PM CDT) COVID-19 PCR Not detected Not detected 03/08/20 10:21 PM CDT [facility] Influenza A Rapid BILLY Not Detected Not Detected 03/08/2022 10:21 PM CDT [facility] Influenza B BILLY Rapid Not Detected Not Detected 03/08/2022 10:21 PM CDT [facility] Microbiology SPECIMEN FROM NASOPHARYNGEAL STRUCTURE / Unknown Collection / Unknown 03/08/2022 9:38 PM CDT 03/08/2022 9:40 PM CDT [facility] - 03/08/2022 10:21 PM CDT Influenza assay [...] acid amplification assay performance was validated by [facility]. This test has been authorized by [...] Elizabeth Hernandez MD LAB - MICROBIOLOGY O RDERALETTY Performing Organization Address City/[facility]/ZIP Co de Phone Number [address] [address], [facility] [phone] * (ABNORMAL) LACTIC ACID BLOOD REFLEX TO REPEAT (03/08/2022 9:37 PM CDT) Pathologist [facility] Lactic Acid-Stat 2.2(H) <=2.0 mmol/L 03/08/2022 10:06 PM CDT [facility] Blood BLOOD SPECIMEN / Unknown Venipuncture / Unknown 03/08/2022 9:37 PM CDT 03/08/2022 9:42 PM CDT Elizabeth Hernandez MD LAB - CHEMISTRY ORDByron MEDEROS Performing Organization Address City/[facility]/ZIP Co de Phone Number [address] [address], [facility] [phone] * TROPONIN I (03/08/2022 9:37 PM CDT) Pathologist [facility] Troponin I 0.016 <0.032 ng/mL 03/08/2022 10:17 PM CDT [facility] Blood BLOOD SPECIMEN / Unknown Venipuncture / Unknown 03/08/2022 9:37 PM CDT 03/08/2022 9:42 PM CDT Elizabeth Hernandez MD LAB - CHEMISTRY MARSHAL MEDEROS [address] [address], [place] [phone] * LACTIC ACID REPEAT REFLEX (03/08/2022 5:26 PM CDT) Lactic Acid Repeat Reflex Order LACTIC ACID REPEAT HAS BEEN ORDERED 03/08/2022 7:32 PM CDT [facility] Blood BLOOD SPECIMEN / Unknown Venipuncture / Unknown 03/08/2022 5:26 PM CDT 03/08/2022 6:01 PM CDT Elizabeth Hernandez MD LAB - CHEMISTRY MARSHAL MEDEROS [address] [address], [place] [phone] * (ABNORMAL) LACTIC ACID BLOOD REFLEX TO REPEAT (03/08/2022 5:26 PM CDT) Lactic Acid-Stat 3.3(HH) <=2.0 mmol/L 03/08/2022 6:04 PM CDT [facility] Comment:RESULTS CALLED TO AN D READ BACK BY Cami Robin, ALFRED AT 6:04 PM, 03/08/2022 Blood BLOOD SPECIMEN / Unknown Venipuncture / Unknown 03/08/2022 5:26 PM CDT 03/08/2022 5:38 PM CDT Elizabeth Hernandez MD LAB - CHEMISTRY MARSHAL MEDEROS [address] [address], [place] [phone] * CULTURE URINE (03/08/2022 5:26 PM CDT) Culture Urine No growth (<100 CFU/mL) JELLY 03/09/2022 11:26 PM CDT [facility] Urine URINE SPECIMEN OBTAINED BY CLEAN CATCH PROCEDURE / Unknown Collection / Unknown 03/08/2022 5:26 PM CDT 03/08/2022 5:29 PM CDT Elizabeth Hernandez MD LAB - MICROBIOLOGY O RDERABLES [facility] [address] [place] [address], [facility] [phone] * (ABNORMAL) URINALYSIS REFLEX TO MICROSCOPIC NO CULTURE (03/08/2022 5:26 PM CDT) Color UA Yellow Straw, Yellow 03/08/2022 5:41 PM T [facility] Clarity UA Clear Clear 03/08/2022 5:41 PM [facility] Specific [place]imer UA 1.023 1.005 - 1.030 03/08/2022 5:41 PM [facility] pH UA 6.0 5.0 - 8.0 pH 03/08/2022 5:41 PM [facility] Protein UA 1+(A) Negative 03/08/2022 5:41 PM [facility] Glucose UA 1+(A) Negative 03/08/2022 5:41 PM [facility] Ketone UA Trace(A) Negative 03/08/2022 5:41 PM [facility] Bilirubin UA Negative Negative 03/08/2022 5:41 PM [facility] Blood UA Negative Negative 03/08/2022 5:41 PM [facility] Nitrite UA Negative Negative 03/08/2022 5:41 PM [facility] Leukocyte Esterase Negative Negative 03/08/2022 5:41 PM [facility] Urobilinogen UA 4.0(A) Negative mg/dL 03/08/2022 5:41 PM [facility] RBC UA 3-5 None Seen, 0-2, 3-5 /HPF 03/08/2022 5:41 PM [facility] WBC UA 0-5 None Seen, 0-5 /HPF 03/08/2022 5:41 PM [facility] Squamous Epithelial Cells UA None Seen None Seen, 0-2, 3-5 /HPF 03/08/2022 5:41 PM CDT [facility] Urine URINE SPECIMEN OBTAINED BY CLEAN CATCH PROCEDURE / Unknown Collection / Unknown 03/08/2022 5:26 PM CDT 03/08/2022 5:29 PM CDT Narrative [facility] - 03/08/2022 5:41 PM CDT Elizabeth Hernandez MD LAB - URINALYSIS ORD ERABLES Performing Organization Address City/[facility]/ZIP Co de Phone Number [address] [address], [facility] [phone] * TROPONIN I (03/08/2022 5:26 PM CDT) Troponin I 0.023 <0.032 ng/mL 03/08/2022 7:20 PM CDT [facility] Blood BLOOD SPECIMEN / Unknown Venipuncture / Unknown 03/08/2022 5:26 PM CDT 03/08/2022 5:38 PM CDT Elizabeth Hernandez MD LAB - CHEMISTRY ORDE RABSHILPA Performing Organization Address [facility]/ZIP Co de Phone Number [address] [address], [facility] [phone] * XR FOOT LEFT 3VW OR MORE [...] noted. Report dictated by Param Eubanks MD (vice president investor relations). Eron Thomason have personally reviewed and interpreted [...] noted. Report dictated by Param Eubanks MD (vice president investor relations). Eron Thomason have personally reviewed and interpreted this examination/study. > Interpreting Provider: Eron Payton on 03/08/2022 4:48 PM Elizabeth Hernandez MD DIAGNOSTIC IMAGING O RDERABLES * XR CHEST 1VW PORTABLE (03/08/2022 3:37 PM CDT) Anatomical Region Laterality Modality Chest Radiographic Cynthia ging 03/08/2022 3:36 PM CDT Narrative 03/08/2022 4:44 PM CDT PROCEDURE: ??XR CHEST 1VW PORTABLE, DATE/TIME OF EXAM: ??03/08/2022 3:14 PM, LOCATION ??[facility] INDICATION: R50.9: Fever, unspecified fever cause ADDITIONAL CLINICAL INFORMATION: Ordering Provider Reason For Exam: ??infection? SOB COMPARISON: 05/01/2021 FINDINGS/IMPRESSION: Mild left basilar atelectasis or airspace disease. A small left pleural effusion cannot be excluded. No pneumothorax. Heart size and mediastinal contours are normal. No acute osseous abnormality. Report dictated by Param Eubanks MD (vice president investor relations). Eron Thomason have personally reviewed and interpreted this examination/study. > Interpreting Provider: Eron Payton on 03/08/2022 4:44 PM Procedure Note Eron Payton MD - 03/08/2022 PROCEDURE: XR CHEST 1VW PORTABLE, DATE/TIME OF EXAM: 03/08/2022 3:14PM, LOCATION [facility] INDICATION: R50.9: Fever, unspecified fever cause ADDITIONAL CLINICAL INFORMATION: Ordering Provider Reason For Exam: infection? SOB COMPARISON: 05/01/2021 FINDINGS/IMPRESSION: Mild left basilar atelectasis or airspace disease. A small left pleural effusion cannot be excluded. No pneumothorax. Heart size and mediastinal contours are normal. No acute osseous abnormality. Report dictated by Param Eubanks MD (vice president investor relations). Eron Thomason have personally reviewed and interpreted this examination/study. > Interpreting Provider: Eron Payton on 03/08/2022 4:44 PM Elizabeth Hernandez MD DIAGNOSTIC IMAGING O RDERABLES * VALPROIC ACID LEVEL (03/08/2022 3:01 PM CDT) [facility] Valproic Acid Total 99 50 - 100 ug/mL 03/08/2022 3:34 PM CDT [facility] Blood BLOOD SPECIMEN / Unknown Venipuncture / Unknown 03/08/2022 3:01 PM CDT 03/08/2022 3:23 PM CDT Elizabeth Hernandez MD LAB - CHEMISTRY MARSHAL MEDEROS [address] [address], [facility] [phone] * CULTURE BLOOD (03/08/2022 3:01 PM CDT) Culture No growth day 5 JELLY 03/13/2022 7:[address] [facility] Blood PERIPHERAL BLOOD / Unknown Venipuncture / Unknown 03/08/2022 3:01 PM CDT 03/08/2022 3:11 PM CDT Elizabeth Hernandez MD LAB - MICROBIOLOGY O RDERABLES [facility] [address] [place] [address], [facility] [phone] * LACTIC ACID REPEAT REFLEX (03/08/2022 2:55 PM CDT) Pathologist [facility] Lactic Acid Repeat Reflex Order LACTIC ACID REPEAT HAS BEEN ORDERED 03/08/2022 5:03 PM CDT [facility] Blood BLOOD SPECIMEN / Unknown Venipuncture / Unknown 03/08/2022 2:55 PM CDT 03/08/2022 3:39 PM CDT Elizabeth Hernandez MD LAB - CHEMISTRY MARSHAL MEDEROS Performing Organization Address City/[facility]/ZIP Co de Phone Number [facility] [address] [place] [address], [facility] [phone] * (ABNORMAL) DIFFERENTIAL MANUAL (03/08/2022 2:55 PM CDT) [facility] WBC (corrected for NRBC) 20.8 10? 3 /uL 03/08/2022 4:12 PM CDT [facility] Total Cell Count 100 03/08/2022 4:12 PM T [facility] Neutrophils Absolute Manual 15.60(H) 1.60 - 7.00 10? 3 /uL 03/08/2022 4:12 PM T [facility] Comment:(BANDS+SEGS) x WBC = NEUT # (ANC) Lymphocyte Absolute Manual 2.50 1.10 - 3.90 10? 3 /uL 03/08/2022 4:12 PM T [facility] Monocytes Absolute Manual 2.70(H) 0.26 - 1.07 10? 3 /uL 03/08/2022 4:12 PM T [facility] Neutrophil % Manual 75(H) 35 - 70 % 03/08/2022 4:12 PM T [facility] Lymphocyte % Manual 12(L) 20 - 43 % 03/08/2022 4:12 PM CDT [facility] Monocytes % Manual 13 5 - 13 % 03/08/2022 4:12 PM CDT [facility] Platelet Estimate Adequate Adequate 03/08/2022 4:12 PM CDT [facility] RBC Morphology Normal 03/08/2022 4:12 PM CDT [facility] Large Platelet Count Occasional(A ) None 03/08/2022 4:12 PM CDT [facility] Blood BLOOD SPECIMEN / Unknown Venipuncture / Unknown 03/08/2022 2:55 PM CDT 03/08/2022 3:13 PM CDT Elizabeth Hernandez MD LAB - HEMATOLOGY ORD ERABLES [facility] [address] [place] [address], [facility] [phone] * (ABNORMAL) LEVETIRACETAM LEVEL (03/08/2022 2:55 PM CDT) Levetiracetam 59(H) 10 - 40 ug/mL 03/10/2022 3:00 AM CDT [facility] ([facility]) Comment: INTERPRETIVE INFORMATION: Keppra (Levetiracetam) Therapeutic Range: ??10-40 ug/mL ?Toxic: ??Not well Established Pharmacokinetics of levetiracetam are affected by renal function. Adverse effects may include somnolence, weakness, headache and vomiting. This levetiracetam (Keppra) immunoassay uses the [employer] reagents, which has known cross-reactivity with the drug brivaracetam (Briviact) and may report inaccurate results. Patients transitioning from levetiracetam to brivaracetam or those who are using both medications should not monitor drug concentrations with the [employer] assay. These patients should be monitored using a validated chromatographic methodology that distinguishes between drugs to determine drug concentrations. Performed By: [employer] [address] [place] [id number] [employer] Chair: Power Milian MD, PhD Blood BLOOD SPECIMEN / Unknown Venipuncture / Unknown 03/08/2022 2:55 PM CDT 03/08/2022 3:11 PM CDT Elizabeth Hernandez MD LAB - THERAPEUTIC DR DIAZ MONITORING ORDERABLES [facility]) [address] [place], [place] [phone], [facility] * (ABNORMAL) COMPREHENSIVE METABOLIC PANEL (03/08/2022 2:55 PM CDT) BUN 21 7 - 26 mg/dL 03/08/2022 3:43 PM [facility] Creatinine 0.87 0.71 - 1.16 mg/dL 03/08/2022 3:43 PM [facility] Sodium 143 136 - 145 mmol/L 03/08/2022 3:43 PM [facility] Potassium 4.0 3.5 - 4.5 mmol/L 03/08/2022 3:43 PM [facility] Chloride 102 98 - 107 mmol/L 03/08/2022 3:43 PM [facility] CO2 29 22 - 29 mmol/L 03/08/2022 3:43 PM [facility] Glucose 113 70 - 115 mg/dL 03/08/2022 3:43 PM [facility] Calcium 9.5 8.4 - 10.2 mg/dL 03/08/2022 3:43 PM [facility] Protein Total 7.3 6.0 - 8.3 g/dL 03/08/2022 3:43 PM [facility] Albumin 2.7(L) 3.4 - 5.0 g/dL 03/08/2022 3:43 PM [facility] Bilirubin Total 0.4 0.2 - 1.2 mg/dL 03/08/2022 3:43 PM [facility] Alkaline Phosphatase 84 40 - 150 U/L 03/08/2022 3:43 PM [facility] ALT 26 5 - 55 U/L 03/08/2022 3:43 PM [facility] AST 74(H) 5 - 34 U/L 03/08/2022 3:43 PM [facility] Anion Gap 16 8 - 18 03/08/2022 3:43 PM [facility] BUN/Creatinine Ratio 24(H) 7 - 23 03/08/2022 3:43 PM [facility] Osmolality Calculated 300 270 - 300 mOsm/kg 03/08/2022 3:43 PM [facility] Albumin/Globulin Ratio 0.6(L) 1.1 - 2.3 03/08/2022 3:43 PM [facility] eGFR by CKD-EPI >90 >=90 mL/min/1.7 3 m2 03/08/2022 3:43 PM [facility] Blood BLOOD SPECIMEN / Unknown Venipuncture / Unknown 03/08/2022 2:55 PM CDT 03/08/2022 3:13 PM CDT Elizabeth Hernandez MD LAB - CHEMISTRY ORDE GATITO [facility] Organization Address [facility] Co de Phone Number [address] [phone] [phone] * (ABNORMAL) CBC W AUTO DIFFERENTIAL (03/08/2022 2:55 PM CDT) WBC 20.8(H) 3.5 - 10.5 10? 3 /uL 03/08/2022 3:26 PM [facility] RBC 4.43 4.30 - 5.70 10? 6 /uL 03/08/2022 3:26 PM [facility] Hemoglobin 14.3 12.0 - 17.6 g/dL 03/08/2022 3:26 PM [facility] Hematocrit 42.9 35.2 - 51.7 % 03/08/2022 3:26 PM [facility] MCV 96.8 80.7 - 98.3 fL 03/08/2022 3:26 PM [facility] MCH 32.3 26.7 - 34.0 pg 03/08/2022 3:26 PM [facility] MCHC 33.3 30.8 - 35.9 g/dL 03/08/2022 3:26 PM [facility] Platelet Count 211 150 - 400 10? 3 /uL 03/08/2022 3:26 PM CDT [facility] RDW-SD 44.7 36.0 - 50.0 fL 03/08/2022 3:26 PM CDT [facility] RDW-CV 12.4 11.2 - 14.8 % 03/08/2022 3:26 PM CDT [facility] MPV 11.9 9.4 - 12.9 fL 03/08/2022 3:26 PM CDT [facility] nRBC Absolute 0.00 0 10? 3 /uL 03/08/2022 3:26 PM CDT [facility] nRBC Auto 0.0 0 /100 WBC 03/08/2022 3:26 PM CDT [facility] Blood BLOOD SPECIMEN / Unknown Venipuncture / Unknown 03/08/2022 2:55 PM CDT 03/08/2022 3:13 PM CDT Elizabeth Hernandez MD LAB - HEMATOLOGY ORD ERABLES [facility] [address] [place] [address], [facility] [phone] * (ABNORMAL) CULTURE BLOOD (03/08/2022 2:55 PM CDT) Culture Growth of Staphylococcus aureus(AA) 03/14/2022 7:02 PM CDT [facility] Comment:Staphylococcus aureu s methicillin-susceptible (MSSA) detected by penicillin binding protein immunoassay. Gram Stain Gram-positive cocci in clusters(AA) 03/14/2022 7:02 PM CDT [facility] Blood PERIPHERAL BLOOD / Unknown Venipuncture / Unknown 03/08/2022 2:55 PM CDT 03/08/2022 3:11 PM CDT Narrative [facility] - 03/14/2022 7:02 PM CDT Positive at 14 hr Infectious disease consultation strongly recommended, where available. Refer to previously reported susceptibility testing, specimen number: [id number] Elizabeth Hernandez MD LAB - MICROBIOLOGY O RDERALETTY [facility] [address] [place] [address], [facility] [phone] * (ABNORMAL) TROPONIN I (03/08/2022 2:55 PM CDT) Troponin I 0.032(H) <0.032 ng/mL 03/08/2022 3:41 PM CDT [facility] Blood BLOOD SPECIMEN / Unknown Venipuncture / Unknown 03/08/2022 2:55 PM CDT 03/08/2022 3:23 PM CDT Elizabeth Hernandez MD LAB - CHEMISTRY MARSHAL MEDEROS Performing Organization Address City/[facility]/ZIP Co de Phone Number [address] [address], [place] [phone] * (ABNORMAL) LACTIC ACID BLOOD REFLEX TO REPEAT (03/08/2022 2:55 PM CDT) Pathologist [facility] Lactic Acid-Stat 2.8(H) <=2.0 mmol/L 03/08/2022 3:39 PM CDT [facility] Blood BLOOD SPECIMEN / Unknown Venipuncture / Unknown 03/08/2022 2:55 PM CDT 03/08/2022 3:13 PM CDT Elizabeth Hernandez MD LAB - CHEMISTRY MARSHAL MEDEROS Performing Organization Address City/[facility]/ZIP Co de Phone Number [address] [address], [place] [phone] * (ABNORMAL) GLUCOSE - POINT OF CARE (03/08/2022 2:31 PM CDT) Glucose WB/POC 148(H) 70 - 115 mg/dL 03/08/2022 2:32 PM CDT [facility] Specimen Type Cap Fingerstick 2021 2:32 PM CDT [facility] Blood BLOOD SPECIMEN / Unknown 03/08/2022 2:31 PM CDT 03/08/2022 2:32 PM CDT Elizabeth Hernandez MD LAB - POINT OF CARE ORDERABLES Performing Organization Address [facility] Co de Phone Number [facility] [address] [place] [address], [facility] [phone] * EKG 12-LEAD (03/08/2022 2:05 PM CDT) Ventricular Rate 123 BPM [facility] Atrial Rate 123 BPM [facility] P-R Interval 126 ms [facility] QRS Duration ms 78 ms [facility] Q-T Interval ms 312 ms [facility] QTC Calculation (Bezet) 446 ms [facility] Calculated P Curtis 88 degrees SL MUSE Calculated R Curtis 22 degrees [facility] MUSE Calculated T Curtis 93 degrees [facility] Interpretation EKG SINUS TACHYCARDIA WITH OCCASIONAL PREMATURE VENTRICULAR COMPLEXES POSSIBLE LEFT ATRIAL ENLARGEMENT 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) ABNORMAL ECG WHEN COMPARED WITH ECG OF 30-DEC-2021 11:06, PREMATURE VENTRICULAR COMPLEXES ARE NOW PRESENT VENT. RATE HAS INCREASED BY ??[address] NO LONGER ELEVATED IN INFERIOR LEADS ST NO LONGER ELEVATED IN ANTERIOR LEADS Confirmed by SIRENA MARCELO MD ([id number]) on 03/08/2022 2:48:22 PM [facility] 03/08/2022 2:05 PM CDT 03/08/2022 2:48 PM CDT Elizabeth Hernandez MD ECG ORDERABLES Performing Organization Address [facility] Co de Phone Number [facility] documented in this encounter Visit Diagnoses Diagnosis Sepsis without acute organ dysfunction, due to unspecified organism ([facility])- Primary Fever, unspecified fever cause Pneumonia of [...] without residual deficits Hypertension Unspecified essential hypertension Dry gangrene (HCC) Gangrene documented in this encounter Administered Medications Inactive [...] at 1428, Second-line PRN option for constipation bupivacaine PF (Marcaine PF) 0.5 % injection PRN, Starting on Tue03/15/22 at 1051, Until Tue03/15/22 at 1114, Intra-op $ Given 03/15/2022 10:51 AM CDT 17.5 mL Operative Site cloBAZam (Onfi) tablet 10 mg 10 [...] 9:57 AM CDT 2,000 mg G Tube lidocaine PF (Xylocaine MPF) 1 % injection PRN, Starting on Tue03/15/22 at 1052, Until Tue03/15/22 at 1114, Intra-op $ Given 03/15/2022 10:52 AM CDT 17.5 mL Operative Site oxyCODONE (Roxicodone) oral solution 2.5 mg 2.5 [...] 03/31/2022 12:07 AM CDT 2.5 mg G Tube $ Given 03/30/2022 5:19 AM CDT 2.5 [...] request must be documented in the MAR. 09 ($ Given - Provider: Nano Pelaez RN)1338 ($ Given - Provider: Nano Pelaez RN)2101 ($ Given - Provider: Angelita Jarrett RN) 0957 ($ Given - Provider: Denisse Conley RN)151 ($ Given - Provider: Denisse Conley RN)2111 [...] modification) on Tue03/26/22 at 0900, Until Discontinued 09 ($ Given - Provider: Nano Pelaez RN) [...] via the FT Do not crush, chew 0914 ($ Given - Provider: Nano Pelaez RN) 0957 ($ Given - Provider: Denisse Conley RN) 0952 ($ Given - Provider: Denisse Conley RN) thiamine (Vitamin B-1) tablet 100 mg 100 mg, Enteral Tube, DAILY, First dose on Tue03/26/22 at 0900, Until Discontinued 0913 ($ Given - Provider: Nnao Pelaez RN) 0957 ($ Given - Provider: [...] RN)1633 ($ Given - Provider: Nano Pelaez RN)2111 ($ Given - Provider: Angelita Jarrett RN) [...] request must be documented in the MAR. 1632 ($ Given - Provider: Nano Pelaez RN) 0348 ($ Given - Provider: Angelita Jarrett RN) artificial tears ophthalmic solution 1 drop 1 drop, Each Eye, 3 TIMES DAILY PRN, Dry Eyes, Starting on Tue03/11/22 at 0953, Until Marian 04/01/22 at 1428 bisacodyl (Dulcolax) suppository 10 mg 10 mg, Rectal, DAILY PRN, Constipation, Starting on Tue03/25/22 at 1845, Until Marian 04/01/22 at 1428, Second-line PRN option for constipation [...] request must be documented in the JUL. 0519 ($ Given - Provider: Sofía Iraheta RN [...] iso, ES 03/09/2022 03/09/2022 05/13/2022 6:57 AM TERMINAL BLOCK ASSEMBLER documented as of this encounter Care Teams Waiter/Waitress Formal Relationship Specialty Start Date End Date Joyce Luevano, JUNIOR PROGRAMMER ANALYST-BOG CUTTER [address] [place] [id number] PCP - General 03/08/22 11/17/23 Elizabeth Sullivan, RN Agile Business Analyst 10/14/17 documented as of this encounter
--- OUTSIDE RECORDS SUMMARY | 2024-06-08 05:40 | XMS_ITS | Encounter Summary ---
Author Organization [facility] Health Address [address] [facility] [place] [address] Care Team Providers Care Homeworker Name Role Phone Elizabeth Sullivan RN Unavailable [phone] Daryl Barr MD Primary Care Provider [phone] Reason for Visit * Reason Onset Date Comments Swelling Toe 02/23/2022 Encounter Details Date Type Department Care Team (Late st Contact Info) Description 02/23/2022 Telephone [facility] [address] [place] [address] Yana Rm, COCONUT COOKER-SHEET ROCK INSTALLATION HELPER [address] [place] [address] Swelling Toe Social History Tobacco Use Types Packs/Day Years [...] Telephone Encounter - Gloria Ricketts MA - 02/23/2022 10:03 AM CDT Adriane called in on behalf of patient stating he was seen last week and forgot to mention the pain in his foot. Over the week things has become worse. L foot big toe hurt to touch unable to apply pressure socks/shoes hurt. He has not been able to complete therapy due to this. States he now has two open sores at the site and the nail is discolored. States she has never seen anything like this. She stated he does not have an podiatry doctor. Requesting for a callback to discuss things further. documented in this encounter Plan of Treatment Upcoming Encounters Date Type Department Care Team (Late st Contact Info) Description 12/05/2024 1:00 PM CDT Office Visit [facility] [address] [place] [address], [place] [phone] Sean Raymundo, [address] [place] [address] [place] [address] documented as of this encounter Visit Diagnoses Not on filedocumented in this encounter Care Teams Homeworker Relationship Specialty Start Date End Date Daryl Barr MD PCP - General 09/16/20 03/07/22 Elizabeth Sullivan, ALFRED Sales Exec 10/14/17 documented as of this encounter
--- OUTSIDE RECORDS SUMMARY | 2024-06-08 05:40 | XMS_ITS | Encounter Summary ---
Author Organization [facility] Health Address [address] [facility] [place] [address] Care Team Providers Care Electrical Checkout Mechanic Name Role Phone Elizabeth Sullivan RN Unavailable [phone] Daryl Barr MD Primary Care Provider [phone] Encounter Details Date Type Department Care Team (Late st Contact Info) Description 02/04/2022 Orders Only [facility] [address] [facility], [place] [address] Yana Rm, IMPROVEMENT AUDITOR-VETERINARY MEDICINE TEACHER [address] [place] [address] Partial 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, intractable, with status epilepticus (HCC) Social History Tobacco Use [...] Office Visit [facility] [address] [place] [address], [place] [phone] Sean Raymundo, [address] [place] [address] [place] [address] documented as of this encounter Visit Diagnoses Diagnosis Partial 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, intractable, with status epilepticus (HCC)- Primary documented in this encounter Care Teams Electrical Checkout Mechanic Relationship Specialty Start Date End Date Daryl Barr MD PCP - General 09/16/20 03/07/22 Elizabeth Sullivan RN Customer Service Manager 10/14/17 documented as of this encounter
--- OUTSIDE RECORDS SUMMARY | 2024-06-08 05:40 | XMS_ITS | Encounter Summary ---
Author Organization [facility] Health Address [address] [facility] [place] [address] Care Team Providers Care Shower Attendant Name Role Phone Elizabeth Sullivan RN Unavailable [phone] Daryl Barr MD Primary Care Provider [phone] Reason for Visit * Reason Onset Date Comments Medication Issue 2022 Encounter Details Date Type Department Care Team (Late st Contact Info) Description 2022 Telephone [facility] [address] [place] [address] Yana Rm, PUDDLER PILE DRIVING-ORCHESTRA LEADER [address] [place] [address] Medication Issue Social History Tobacco Use Types Packs/Day Years [...] Telephone Encounter - Michaela Bass RN - 2022 9:12 AM CDT Per HOPPER FEEDER Jag spoke with ALFRED Nunez at the [facility] and confirmed his meds while in the faciltiy: Depakote 1000mg bid Keppra 2000mg bid Lacosamide 200mg bid Clobazam 100mg bid States that patient started having seizure activity at 1145am on 01/25/22 and patient seemed fully recovered by 1415pm that afternoon. Patient is currently on ampicillin x 7 days for UTI and first dose was on 01/21/22. Given Dr. Rodrigo Kong's number who is the in house Neurologist and his cell is [phone]. Responds to texts but does not accept voicemail. Will forward this information to BOUCHRA Rm for her review. documented in this encounter Plan of Treatment Upcoming Encounters Date Type Department Care Team (Late st Contact Info) Description 12/05/2024 1:00 PM CDT Office Visit [facility] - Neurology [address] [place] [address] [place] [address] Sean Raymundo, DO [address] [place] [phone] documented as of this encounter Visit Diagnoses Not on filedocumented in this encounter Care Teams Shower Attendant Relationship Specialty Start Date End Date Daryl Barr MD PCP - General 09/16/20 03/07/22 Elizabeth Sullivan, RN Inventory Audit Clerk 10/14/17 documented as of this encounter
--- OUTSIDE RECORDS SUMMARY | 2024-06-08 05:41 | XMS_ITS | Encounter Summary ---
Author Organization [facility] Health Address [address] [facility] [place] [address] Care Team Providers Care Belt And Link Assembly Supervisor Name Role Phone Elizabeth Sullivan RN Unavailable [phone] Daryl Barr MD Primary Care Provider [phone] Reason for Visit * Radiology Services (Routine) - Closed Specialty Diagnoses / Procedures Referred By Contac t Referred To Contact Vascular Lab Diagnoses Vertebral artery stenosis, bilateral Carotid stenosis, bilateral Procedures VAS TRANSCRANIAL DOPPLER COMP Ousmane Frederick MD [address] [place] [address] [facility] [address] [place] [address] Referral ID Status Reason Start Date Expiration Date Visits Re quested Visits Authorized [id number] Closed 02/26/2021 02/26/2022 1 1 Encounter Details Date Type Department Care Team (Latest Contact Info) Description 04/02/2021 11:00 AM CDT - 04/02/2021 11:59 PM CDT Hospital Encounter [facility] [address] [place] [address] Ousmane Frederick MD [facility] [place] [address] Discharge Disposition: Home or Self Care Social History Tobacco Use Types Packs/Day Years Used Date Smoking Tobacco: Former Cigarettes 1 15 Smokeless Tobacco: Never Alcohol Use Standard Drinks/Week Comments No 0 (1 standard drink = 0.6 oz pur e alcohol) last drink 2015 Sex and Gender Information Value Date Recorded Sex Assigned at Not on file Gender Identity Not on file Sexual Orientation Not on file COVID-19 Exposure Response Date Recorded In the last month, have you been in contact with someone who was confirmed or suspected to have Coronavirus / COVID-19? No / Unsure 04/02/2021 11:28 AM CDT documented as of this encounter Functional Status Functional Status Response Date of Assess ment Is person deaf or have serious hearing difficult y? No 08/18/2020 Is person blind or have serious difficulty seein g? No 08/18/2020 Does person have serious dif ficulty walking/climbing stairs? Yes 08/18/2020 Does person have difficulty dressing/bathing? Ye s 08/18/2020 Does person have difficulty doing errands alone? Yes 08/18/2020 Cognitive Status Response Date of Assessm ent Does person have difficulty concentrating/remembering/making decisions? Yes 08/18/2020 documented as of this encounter Medications at Time of Discharge Medication Sig Dispensed Refills Start Date End Date acetaminophen (TYLENOL) 325 MG tablet 12/12/2018 01/07/2022 amLODIPine (NORVASC) 5 MG tabletIndications:Hyp ertension, unspecified type Take 1 tablet by mouth once daily 30 tablet 06/10/2018 01/07/2022 aspirin (ASPIRIN) 81 MG chew tablet Take 1 tablet by mouth once daily 30 tablet 06/10/2018 01/07/2022 atorvastatin (LIPITOR) 40 MG tablet Take 1 (one) tablet by mouth at bedtime 08/21/2020 01/07/2022 Cholecalciferol 25 MCG (1000 UT) Take 1,000 Units by mouth once daily 12/13/2020 01/07/2022 clonazePAM (KLONOPIN) 2 MG tablet Take 1 (one) tablet by mouth 2 times daily 08/21/2020 09/01/2021 Cyanocobalamin (B-12) 1000 MCGIndications:Vitami n B12 deficiency Take 1 mg by mouth once daily 30 capsule 11 03/12/2021 12/09/2021 diazePAM (VALTOCO 15 MG DOSE) 15 MG (2 x 7.5 MG/0.1ML) nasal sprayIndications:Part ial 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, intractable, with status epilepticus (HCC) [place] 0.2 mL into the nose as needed for Seizures (For breakthrough seizure to prevent clustering) 3 kit 5 03/12/2021 09/01/[address] (DEPAKOTE) 250 MG tabletIndications:Par tial 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, intractable, with status epilepticus (HCC) Take 1 (one) tablet by mouth 2 times daily [Take with 250 mg tablets, making 750 mg twice a day] 60 tablet 5 03/12/2021 09/01/[address] (DEPAKOTE) 500 MG tabletIndications:Par tial 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, intractable, with status epilepticus (HCC) Take 1 (one) tablet by mouth 2 times daily [Take with 250 mg tablets, making 750 mg twice a day] 60 tablet 5 03/12/2021 09/01/2021 folic acid (FOLVITE) 1 MG tabletIndications:Fol ate deficiency Take 1 (one) tablet by mouth once daily 30 tablet 11 03/12/2021 12/21/2021 ibuprofen (MOTRIN) 600 MG tablet Take 600 mg by mouth as needed 09/01/2018 01/07/2022 lacosamide (VIMPAT) 200 MG tabletIndications:Par tial 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, intractable, with status epilepticus (HCC) Take 1 (one) tablet by mouth 2 times daily 60 tablet 5 03/12/2021 09/01/2021 lacosamide (VIMPAT) 200 MG tablet Take 1 tablet by mouth 2 times daily for 30 days 60 tablet 5 05/16/2019 06/28/2023 levETIRAcetam (KEPPRA) 1000 MG tabletIndications:Par tial 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, intractable, with status epilepticus (HCC) Take 2 (two) tablets by mouth 2 times daily 120 tablet 5 03/12/2021 09/01/2021 levETIRAcetam (KEPPRA) 1000 MG tablet Take 2 [...] 1 (one) tablet by mouth once daily 08/22/2020 12/21/2021 tamsulosin (FLOMAX) 0.4 MG capsule 0.4 mg once daily 12/12/2018 01/08/20 22 thiamine (VITAMIN B-1) 100 MG tabletIndications:Thi amine deficiency Take 1 (one) tablet by mouth once daily 30 tablet 11 03/12/2021 12/09/2021 documented as of this encounter Plan of Treatment Upcoming Encounters Date Type Department Care Team (Late st Contact Info) Description 12/05/2024 1:00 PM CDT Office Visit [facility] - Neurology [address] [place] [phone] Sean Raymundo, DO [address] [place] [address] [place] [phone] documented as of this encounter Procedures Procedure Name Priority Date/Time Associated Diagnosis Comments VAS TRANSCRANIAL DOPPLER COMP Routine 04/02/2021 12:27 PM CDT Vertebral artery stenosis, bilateral Carotid stenosis, bilateral documented in this encounter Results * VAS TRANSCRANIAL DOPPLER COMP (04/02/2021 12:27 PM CDT) Anatomical Region Laterality Modality Head Intravascular Ul trasound 04/02/2021 11:5 6 AM CDT Narrative 04/03/2021 11:52 AM CDT Procedure Note Jacqueline Chavez MD - 04/03/2021 Ousmane Frederick MD [facility] ORDERA BLES documented in this encounter Visit Diagnoses Diagnosis Vertebral artery stenosis, bilateral Carotid stenosis, bilateral Occlusion and stenosis of multiple and bilateral precerebral arteries without mention of cerebral infarction documented in this encounter Care Teams Belt And Link Assembly Supervisor Relationship Specialty Start Date End Date Daryl Barr MD PCP - General 09/16/20 03/07/22 Elizabeth Sullivan, RN Shot Grinder Operator 10/14/17 documented as of this encounter
--- OUTSIDE RECORDS SUMMARY | 2024-06-08 05:41 | XMS_ITS | Encounter Summary ---
Author Organization [facility] Health Address [address] [facility] [facility] [place] [address] Care Team Providers Care Lime Kiln Tender Name Role Phone Elizabeth Sullivan RN Unavailable [phone] Daryl Barr MD Primary Care Provider [phone] Reason for Visit * Reason Onset Date Comments Seizure 10/08/2021 Encounter Details Date Type Department Care Team (Late st Contact Info) Description 10/08/2021 Telephone [facility] [address] [place] [address] Yana Rm, PRIVATE WATCHMAN-TIMBER SPOTTER [address] [place] [address] Seizure Social History Tobacco Use [...] Yes 08/18/2020 documented as of this encounter Miscellaneous Notes * Telephone Encounter - Yana Rm APRN-CNP - 10/08/2021 1:00 PM CDT Spoke to patient's sister Adriane about patient's recent ER visit for a seizure. Patient has had 1-2 seizures since last visit. Per Adriane he is taking all his medications as prescribed, no missed doses. Concerned that too much sugar in his diet could be the culprit. Discussed the need for medication adjustment but states patient is wanting to go off medication, discussed how this is not an option at this time since patient's seizure are currently still uncontrolled. Discussed increasing Depakote to 1,000mg BID-Adriane states patient would not want that medication increased. Patient was previously on Clonazepam PRN for breakthrough seizures which seemed to help, will prescribe. Home ambulatory EEG study pending-need to see if patient is patient's seizure burden is higher thanwhat is being reported. Discussed the possible need for EMU admission in future-states she will talk to her brother but does not think that is something he will want to do. documented in this encounter Plan of Treatment Upcoming Encounters Date Type Department Care Team (Late st Contact Info) Description 12/05/2024 1:00 PM CDT Office Visit [facility] Neurology [address] [place] [address], [place] [address] Sean Raymundo, DO [address] [place] [address] [place] [address] documented as of this encounter Visit Diagnoses Not on filedocumented in this encounter Care Teams Lime Kiln Tender Relationship Specialty Start Date End Date Daryl Barr MD PCP - General 09/16/20 03/07/22 Elizabeth Sullivan, RN Ore Miner Blasting 10/14/17 documented as of this encounter
--- OUTSIDE RECORDS SUMMARY | 2024-06-08 05:41 | XMS_ITS | Encounter Summary ---
Author Organization [facility] Health Address [address] [place] [address] Care Team Providers Care Brush Head Maker Name Role Phone Elizabeth Sullivan RN Unavailable [phone] Daryl Barr MD Primary Care Provider [phone] Encounter Details Date Type Department Care Team (Latest Contact Info) Description 09/01/2021 2:54 PM CDT - 09/01/2021 11:59 PM CDT Hospital Encounter [facility] OP DRAW STATION [address] [place] [phone] Discharge Disposition: Home or Self Care Social [...] have Coronavirus / COVID-19? No / Unsure 09/01/2021 2:52 PM CDT documented as of this encounter Functional [...] tablet 12/12/2018 01/07/2022 amLODIPine (NORVASC) 5 MG tabletIndications:Hypert ension, unspecified type Take 1 tablet by mouth once daily 30 tablet 06/10/2018 01/07/2022 aspirin (ASPIRIN) 81 MG chew tablet Take 1 tablet by mouth once daily 30 tablet 06/10/2018 01/07/2022 atorvastatin (LIPITOR) 40 MG tablet Take 1 (one) tablet by mouth at bedtime 08/21/2020 01/07/2022 Cholecalciferol 25 MCG (1000 UT) Take 1,000 Units by mouth once daily 12/13/2020 01/07/2022 Cyanocobalamin (B-12) 1000 MCGIndications:Vitamin B12 deficiency Take 1 mg by mouth once daily 30 capsule 11 03/12/2021 12/09/[address] (DEPAKOTE) 250 MG tabletIndications:Partia l 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, intractable, with status epilepticus (HCC) Take 1 (one) tablet by mouth 2 times daily [Take with 250 mg tablets, making 750 mg twice a day] 180 tablet 3 09/01/2021 12/09/[address] (DEPAKOTE) 500 MG tabletIndications:Partia l 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, intractable, with status epilepticus (HCC) Take 1 (one) tablet by mouth 2 times daily [Take with 250 mg tablets, making 750 mg twice a day] 180 tablet 3 09/01/2021 12/09/2021 folic acid (FOLVITE) 1 MG tabletIndications:Folate deficiency Take 1 (one) tablet by mouth once daily 30 tablet 11 03/12/2021 12/21/2021 ibuprofen (MOTRIN) 600 MG tablet Take 600 mg by mouth as needed 09/01/2018 01/07/2022 lacosamide (VIMPAT) 200 MG tabletIndications:Shereen l 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, intractable, with status epilepticus (HCC) Take 1 (one) tablet by mouth 2 times daily 180 tablet 3 09/01/2021 12/09/2021 lacosamide (VIMPAT) 200 MG tablet Take 1 tablet by mouth 2 times daily for 30 days 60 tablet 5 05/16/2019 06/28/2023 levETIRAcetam (KEPPRA) 1000 MG tabletIndications:Shereen l 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, intractable, with status epilepticus (HCC) Take 2 (two) tablets by mouth 2 times daily 360 tablet 3 09/01/2021 12/09/2021 levETIRAcetam (KEPPRA) 1000 MG tablet Take 2 tablets by mouth 2 times daily for 30 days 120 tablet 5 05/16/2019 01/14/2023 levETIRAcetam (KEPPRA) 1000 MG tabletIndications:Lo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, intractable, without status epilepticus (HCC) Take 2 tablets by mouth 2 times daily for 30 days 120 tablet 5 02/15/2019 01/14/2023 levETIRAcetam (KEPPRA) 750 MG tabletIndications:Shereen l 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, [...] MG capsule 0.4 mg once daily 12/12/2018 01/07/2022 thiamine (VITAMIN B-1) 100 MG tabletIndications:Thiami ne deficiency Take 1 (one) tablet by mouth once daily 30 tablet 11 03/12/2021 12/09/2021 documented as of this encounter Plan of Treatment Upcoming Encounters Date Type Department Care Team (Late st Contact Info) Description 12/05/2024 1:00 PM CDT Office Visit [facility] [address] [facility], [place] [address] Sean Raymundo, DO [address] [place] [address] documented as of this encounter Procedures Procedure Name Priority Date/Time Associated Diagnosis Comments LACOSAMIDE Routine 09/01/2021 3:35 PM CDT Partial 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, intractable, with status epilepticus (HCC) LEVETIRACETAM LEVEL Routine 09/01/2021 3 :35 PM CDT Partial 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, intractable, with status epilepticus (HCC) VALPROIC ACID FREE+TOTAL PANEL Routine 09/01/2021 3:35 PM CDT Partial 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, intractable, with status epilepticus (HCC) documented in this encounter Results * (ABNORMAL) LACOSAMIDE (09/01/2021 3:35 PM CDT) Lacosamide 11.5(H) 1.0 - 10.0 ug/mL 09/03/2021 2:48 PM CDT [employer] ([facility]) Comment: INTERPRETIVE INFORMATION: Lacosamide, Serum or Plasma [...] developed and its performance characteristics determined by [facility]. It has not been cleared or approved by the [place] Food and Drug Administration. This test was performed in a CLIA-certified laboratory and is intended for clinical purposes. Performed By: [facility] [address] [place] [address] Rotary Shear Operator: Philly Hope MD Blood BLOOD SPECIMEN / Unknown Lab Venipuncture / Unknown 09/01/2021 3:35 PM CDT 09/01/2021 4:10 PM CDT [facility] - CHEMISTR Y ORDERABLES [facility]) [address] [place] [address] * VALPROIC ACID FREE+TOTAL PANEL (09/01/2021 3:35 PM CDT) Valproic Acid % Free 18 5 - 18 % 09/03/2021 10:10 PM CDT [email or web address] ([facility]) Comment: INTERPRETIVE INFORMATION: VPA-percent Free Valproic Acid, [...] include headache, somnolence and dizziness. Performed By: [facility] [address] [place] [address] Rotary Shear Operator: Philly Hope MD Valproic Acid Free 17 7 - 23 ug/mL 09/03/2021 10:10 PM CDT [facility] [email or web address] [facility]) Valproic Acid Total 93 50 - 125 ug/mL 09/03/2021 10:10 PM CDT [facility] [email or web address] [facility]) Blood BLOOD SPECIMEN / Unknown Lab Venipuncture / Unknown 09/01/2021 3:35 PM CDT 09/01/2021 4:10 PM CDT Yana [facility] - THERAPEU TIC DRUG MONITORING ORDERABLES Performing Organization Address [facility]/ZIP Co de Phone Number [facility] [email or web address] ([facility]) [address] [place] [address] * (ABNORMAL) LEVETIRACETAM LEVEL (09/01/2021 3:35 PM CDT) Levetiracetam 58(H) 10 - 40 ug/mL 09/02/2021 10:09 PM CDT [email or web address] ([facility]) Comment: INTERPRETIVE INFORMATION: Keppra (Levetiracetam) Therapeutic Range: ??10-40 ug/mL ?Toxic: ??Not well Established Pharmacokinetics of levetiracetam are affected by renal function. Adverse effects may include somnolence, weakness, headache and vomiting. This levetiracetam (Keppra) immunoassay uses the [employer] reagents, which has known cross-reactivity with the drug brivaracetam (Briviact) and may report inaccurate results. Patients transitioning from levetiracetam to brivaracetam or those who are using both medications should not monitor drug concentrations with the [employer] assay. These patients should be monitored using a validated chromatographic methodology that distinguishes between drugs to determine drug concentrations. Performed By: [facility] [address] [place] [address] Rotary Shear Operator: Philly Hope MD Blood BLOOD SPECIMEN / Unknown Lab Venipuncture / Unknown 09/01/2021 3:35 PM CDT 09/01/2021 4:10 PM CDT Yana Rm ACTIVITIES ASSISTANT-RARE/ENDANGERED SPECIES SPECIALIST LAB - THERAPEU TIC DRUG MONITORING ORDERABLES [facility] [email or web address] [facility]) [address] documented in this encounter Visit Diagnoses Diagnosis Partial 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, intractable, with status epilepticus (HCC) documented in this encounter Care Teams Brush Head Maker Relationship Specialty Start Date End Date Daryl Barr MD PCP - General 09/16/20 03/07/22 Elizabteh Sullivan RN Food Services Coordinator 10/14/17 documented as of this encounter
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
--- OUTSIDE RECORDS SUMMARY | 2024-06-08 05:41 | XMS_ITS | Encounter Summary ---
Author Organization [facility] Health Address [address] [place] [address] Care Team Providers Care Invasive Cardiologist Name Role Phone Elizabeth Sullivan RN Unavailable [phone] Daryl Barr MD Primary Care Provider Reason for Visit * Reason Onset Date Comments Med Question 12/29/2021 Encounter Details Date Type Department Care Team (Late st Contact Info) Description 12/29/2021 Telephone [facility] [address] [place] [address] Yana Rm, WAX ROOM SUPERVISOR-LIVESTOCK AGENT [address] [place] [address] Med Question Social History Tobacco Use Types Packs/Day [...] Telephone Encounter - Evy Frost, RN - 12/30/2021 8:[address] Raymundo: She has been updated by me this morning at 8:30 and Isamar at 2 PM (I think after this was seen). Patient is venancio admitted to EMU at [facility]. * Telephone Encounter - Lorraine Nath - 12/29/2021 1:38 PM CDT Pt sister Adriane hammer states she needs a call from Yana Rm about some issues and concerns she can be reached @ [phone]. thanks documented in this encounter Plan of Treatment Upcoming Encounters Date Type Department Care Team (Late st Contact Info) Description 12/05/2024 1:00 PM CDT Office Visit [facility] [address] [facility], [place] [phone] Sean Raymundo, DO [address] [place] [phone] documented as of this encounter Visit Diagnoses Not on filedocumented in this encounter Care Teams Invasive Cardiologist Relationship Specialty Start Date End Date Daryl Barr MD PCP - General 09/16/20 03/07/22 Elizabeth Sullivan, RN Medical Office Professional Instructor 10/14/17 documented as of this encounter
--- OUTSIDE RECORDS SUMMARY | 2024-06-08 05:41 | XMS_ITS | Encounter Summary ---
Author Organization [facility] Health Address [address] [place] [address] Care Team Providers Care Cruller Maker Name Role Phone Elizabeth Sullivan RN Unavailable [phone] Daryl Barr MD Primary Care Provider [phone] Encounter Details Date Type Department Care Team (Late st Contact Info) Description 12/28/2021 Orders Only [facility] [address] [place] [phone] Sridhar Onofre, RN Seizures ([facility]) Social History Tobacco Use Types Packs/Day Years [...] Office Visit [facility] - Neurology [address] [place] [address], [facility] [place] [phone] Sean Raymundo, [address] [place] [address] [place] [phone] documented as of this encounter Visit Diagnoses Diagnosis Seizures (HCC)- Primary Other convulsions documented in this encounter Care Teams Cruller Maker Relationship Specialty Start Date End Date Daryl Barr MD PCP - General 09/16/20 03/07/22 Elizabeth Sullivan, ALFRED Mission Worker 10/14/17 documented as of this encounter
--- OUTSIDE RECORDS SUMMARY | 2024-06-08 05:41 | XMS_ITS | Encounter Summary ---
Author Organization [facility] Health Address [address] [place] [address] Care Team Providers Care Registered Art Therapist Name Role Phone Elizabeth Sullivan RN Unavailable [phone] Dayrl Barr MD Primary Care Provider [phone] Reason for Visit * Reason Onset Date Comments Forms 09/02/2021 Encounter Details Date Type Department Care Team (Late st Contact Info) Description 09/02/2021 Telephone [facility] [address] [place] [address] Yana Rm, PUBLIC HEALTH ANALYST-PROCESSING INSPECTOR [address] [place] [address] Forms Social History Tobacco Use Types Packs/Day Years [...] Telephone Encounter - Michaela Bass RN - 09/02/2021 1:01 PM CDT Long-Term EEG with Cardiac Monitoring Form faxed to [facility] at . Faxed demographics and progress note from 09/01/21. documented in this encounter Plan of Treatment Upcoming Encounters Date Type Department Care Team (Late st Contact Info) Description 12/05/2024 1:00 PM CDT Office Visit [facility] - Neurology [address] [place] [address], [facility] [phone] Sean Raymundo, DO [address] [place] [address] [place] [phone] documented as of this encounter Visit Diagnoses Not on filedocumented in this encounter Care Teams Registered Art Therapist Relationship Specialty Start Date End Date Daryl Barr MD PCP - General 09/16/20 03/07/22 Elizabeth Sullivan, ALFRED Nanoelectronics Engineer 10/14/17 documented as of this encounter
--- OUTSIDE RECORDS SUMMARY | 2024-06-08 05:41 | XMS_ITS | Encounter Summary ---
Author Organization [facility] Health Address [address] [facility] [place] [address] Care Team Providers Care Announcer Name Role Phone Elizabeth Sullivan RN Unavailable [phone] Daryl Barr MD Primary Care Provider [phone] Reason for Visit * Reason Onset Date Comments Returned Call 12/11/2021 Encounter Details Date Type Department Care Team (Late st Contact Info) Description 12/11/2021 [facility]phone [facility] [address] [phone] Genesis Garibay, RN Returned Call Social History Tobacco Use Types Packs/Day Years [...] Telephone Encounter - Genesis Garibay RN - 12/11/2021 12:09 PM CDT Pt called with help from his caregiver, Lauren Francis. She is the pt's sister and law and helps take care of him. She stated she has seen the pt have staring seizures. She said he will be in the middle of conversation and will just start dazing off and stare away for a few seconds and then come back. She said sometimes they do a breathing exercise like Lamaze and that will bring the pt back. She said she has never witnessed his convulsive seizures only the staring ones. She also stated that Bi walks with a walker but would need assistance for further distance. He squints sometimes when speaking to him and Lauren thinks the pt needs glasses. Was able to speak with the patient and explained the EMU process, safety and gave a chance for questions. Will follow-up with the patient and POA next week before his admission on 12/21/2021. documented in this encounter Plan of Treatment Upcoming Encounters Date Type Department Care Team (Late st Contact Info) Description 12/05/2024 1:00 PM CDT Office Visit [facility] Neurology [address] [place] [address], [place] [phone] Sean Raymundo, [address] [place] [address] [place] [phone] documented as of this encounter Visit Diagnoses Not on filedocumented in this encounter Care Teams Announcer Relationship Specialty Start Date End Date Daryl Barr MD PCP - General 09/16/20 03/07/22 Elizabeth Sullivan RN Tabular Typist 10/14/17 documented as of this encounter
--- OUTSIDE RECORDS SUMMARY | 2024-06-08 05:41 | XMS_ITS | Encounter Summary ---
Author Organization [facility] Health Address [address] [place] [address] Care Team Providers Care Cleaner Housekeeping Name Role Phone Elizabeth Sullivan RN Unavailable [phone] Daryl Barr MD Primary Care Provider [phone] Reason for Visit * Auth/Cert Specialty Diagnoses / Procedures Referred By Anabella t Referred To Contact Diagnoses Seizures Referral ID Status Reason Start Date Expiration Date Visits Re quested Visits Authorized [id number] 1 1 Encounter Details Date Type Department Care Team (Latest Contact Info) Description 12/21/2021 12:09 PM CDT - 01/07/2022 6:46 PM CDT Hospital Encounter [facility] 5N ACUTE [address] [place] [id number] Sean Raymundo DO [address] [facility] [facility] [address] [place] [address] [place] V[place] [address] [place] [address] Juan Diego Garcia MD [address] [facility] 2L DIV OF PULMONARY/CRITIC AL [place], [place] [id number] Humberto Echeverria MD [address] [place] [address] Neurology Discharge Disposition: Rehab:Inpatient Social History Tobacco Use Types Packs/Day Years [...] PM CDT documented as of this encounter Last Filed Vital Signs Vital Sign Reading Time Taken Comments Blood Pressure 108/70 01/07/2022 4:32 PM CDT Pulse 102 01/07/2022 4:32 PM CDT Temperature 36.4 ??C (97.6 ??F) 01/07/2022 4:32 PM CD T Respiratory Rate 18 01/07/2022 4:32 PM CDT Oxygen Saturation 96% 01/07/2022 4:32 PM CDT Inhaled Oxygen Concentration - - Weight 63.2 kg (139 lb 5.3 oz) 01/03/2022 3:00 A M CDT Height 180.3 cm (5' 11 ) 12/21/2021 12:36 PM CDT Body Mass Index 19.43 12/21/2021 12:36 PM CDT documented in this encounter Functional [...] Yes 12/26/2021 documented as of this encounter Discharge Summaries * Roxanna Coburn MD - 01/07/2022 11:49 AM CDT Physician Discharge Summary Patient ID: Bi Tabor [id number] 61 year old 1960 Admit date: 12/21/2021 Discharge date: 01/07/2022 Admitting Physician: Sean Raymundo DO Discharge Physician: Dr. 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 continuous video EEG monitoring for medication adjustment and to quantify seizure burden.? Frequent seizures (>7/hour) during first few days of admission. Frequency was stable but intensity of seizures continued to worsen. Code stroke??activated??on 12/29/2021 for left sided weakness but stroke workup was negative. Due to concerns from nursing ??staff after frequent seizures, ??patient was transferred to MICU on 12/30/2021 for close seizure monitoring. ?? Patient is s/p methylprednisolone 1g qdaily x 5 days. Home meds lacosamide, keppra and valproic acid were continued. Clobazam was added given effective response to prn intravenous benzodiazepines.??He was started on Versed 2mg Q5 min PRN for seizures and was okay to be transferred to neurology floor on 01/03 after being off of Versed for about 24 hours. On neurology floor, patient doing well. He was on continuous EEG which showed no further seizures. EEG was discontinued on 01/05. Doing well overall and medically ready to be discharged on 01/05. Patient seen by PT/OT and they recommended acute rehab. PCP things to follow: 1. Refill of seizure medications Consults: Nutrition Significant Diagnostic Studies: Imaging: CT Brain 12/29 1.No acute intracranial process. 2.Old infarcts and senescent changes are stable compared to the brain CT from 05/01/2021. CT Angio Brain & Neck 12/29 1.The dural venous sinuses are not well opacified with contrast and cannot be evaluated. 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 3.70% stenosis of the left ICA origin due to atherosclerotic plaque at the bifurcation is stable. 4.No aneurysm, AVM, or new acute large vessel occlusion. Treatments: See hospital course Discharge Exam: Cortical Function Mental Status Awake, alert, follows some commands and some he does not Orientation Person, place, time, and situation Language Fluency intact, comprehension disrupted, repetition intact Visual Ivan Intact bilaterally to confrontation Neglect No visual neglect noted, no tactile neglect noted ?? Cranial Nerves II Pupils 4 mm and [...] with normal movements and no atrophy noted. ?? Motor Function Movement No abnormalities noted Bulk No abnormalities noted Tone No abnormalities noted ? Proximal Upper Distal Upper Proximal Lower Distal Lower Right 4/5 4/5 3/5 3/5 Left 4/5 4/5 3/5 3/5 ?? Muscle Stretch Reflexes Hyperreflexia throughout ?? Sensory Light Touch Symmetric and intact bilaterally Noxious Stimuli Symmetric and intact bilaterally Temperature Not tested Pallesthesia Not tested ?? Cerebellar Deferred. ?? Gait Deferred Disposition: [facility] facility Patient Instructions: You were admitted to the hospital due to seizures. You were also transferred from the neurology floor to the ICU briefly due to continuous seizures. You were managed with anti-seizure medications and were also put on EEG (which is a machine which shows the seizure activity in the brain). On these medications, youre seizures resolved and now you are okay to be discharged. You were seen by physical therapy who recommended discharge to acute rehab. Epilepsy What you should know: ?? Epilepsy is a brain disorder involving repeated seizures (convulsions). The brain contains many neurons (nerve cells). Normally, the neurons send small eletrical signal to each other And to the body. With epilepsy, there is an abnormal and sudden change in how the neurons send electrical signals. This causes short periods of symptoms that may affect how you move, think or feel. ?? Epilepsy may be caused by conditions affecting the brain, such as a head injury, stroke, or a brain tumor. Abnormal development of the brain or an infection may also cause epilepsy. Common signs and symptoms may include jerking of the hands, legs, or face, confusion, staring blankly, or passing out. Epilepsy is diagnosed by blood tests, an electroencephalogram (EEG), or a computerized tomography (CT) scan. Treatment includes anti-epileptic medicines and surgery. After you leave: Medicines ?? Keep a written list of the medicines you take, the amounts, and when and why you take them. Bring the list of your medicines or the pill bottles when you see your caregivers. Learn why you take each medicine. Ask your caregiver for information about your medicine. Do not use any medicines, loax-esr-kciflcy drugs, vitamins, herbs, or food supplements without first talking to caregivers. ?? Always take your medicine as directed by caregivers. Call your caregiver if you think your medications are not helping or if you feel you are having side effects. Do not quit taking your medications until you discuss it with your caregiver. If you are taking medicine that makes you drowsy, do not drive or use heavy equipment. Ask your caregiver when to return for a follow-up visit. Keep all appointments. Write down any questions you may have. This way you will remember to ask these questions during your next visit. Stress: Stress may slow healing and cause illness later. Since it is hard to avoid stress, learn tocontrol it. Learn new ways to relax, such as deep breathing, meditation, relaxing muscles, music, or biofeedback. Talk to someone about things that upset you. Home Care: When an epileptic seizure occurs, the following should be done to prevent injuries: ?? Do not hold or tie the person down. ?? Do not place anything in the person's mouth or try to force the teeth apart. The person is not in danger of swallowing his/her tongue. ?? Do not pour any liquid into the person's mouth or offer food or medicines until the person is completely awake. ?? If possible, turn the person on his/her side during the seizure. ?? Place something soft under the person's head, loosen tight clothing, and clear the area of sharpor hard objects. ?? Stay with the person until the seizure ends. Let the person rest until he is fully awake. ?? Use a watch to time how long the seizure lasts. ?? Watch the type of movements and position of the person's head or eyes during the seizure. For support and more information: Epilepsy is a life-changing disease for you and your family. Accepting that you have epilepsy is hard. You and those close to you may feel angry, sad, or frightened.These feelings are normal. Talk to your caregivers, family, or friends about your feelings. You mayalso want to join an epilepsy support group. This is a group of people who also have epilepsy. Contact the following for more information [employer] [address] [place] [phone] Phone: Web Address: http://www.epilepsyfoundation.org [place] [employer] [address] [place] [phone] Web Address: http://www.aesnet.org Contact a Caregiver if: ?? You cannot make it to your follow-up visits. ?? You have questions or concerns about epilepsy, medicine, or care. Seek Care Immediately if: ?? You are so depressed you feel you cannot cope with your illness ?? You are confused or cannot think clearly. ?? You had a second seizure soon after the first. ?? Your seizure lasted longer than five minutes. ?? You were injured during or after a seizure. ?? You are having breathing problems or your lips, nailbeds, and face are a blue color. This is an Emergency. Call 911 or 0 (slicer machine operator) for an ambulance to get to the nearest hospital. Current Discharge Medication List START taking these medications Instructions Authorizing Provider cloBAZam 10 MG tablet Commonly known as: Onfi Quantity Dispensed: 60 tablet Take 1 (one) tablet by mouth 2 times daily Roxanna Coburn MD folic acid 1 MG tablet Commonly known as: Folvite Quantity Dispensed: 60 tablet Start taking on: January 08, 2022 Take 1 (one) tablet by mouth once daily Roxanna Coburn MD multivitamin daily tablet Start taking on: January 08, 2022 Take 1 (one) tablet by mouth once daily Roxanna Coburn MD ondansetron 2 MG/ML injection Commonly known as: Zofran 4 (four) mg by Intravenous route every 8 hours as needed for Nausea/Vomiting Roxanna Coburn MD polyethylene glycol 3350 17 g packet Commonly known as: Miralax Start taking on: January 08, 2022 Take 17 (seventeen) g by mouth once daily Roxanna Coburn MD thiamine 100 MG tablet Commonly known as: Vitamin B-1 Quantity Dispensed: 30 tablet Start taking on: January 08, 2022 Take 1 (one) tablet by mouth once daily Roxanna Coburn MD vitamin D3 25 MCG (1000 UNITS) tablet Commonly known as: Cholecalciferol Quantity Dispensed: 30 tablet Replaces: Cholecalciferol 25 MCG (1000 UT) Start taking on: January 08, 2022 Take 1 (one) tablet by mouth once daily Roxanna Coburn MD CONTINUE taking these medications which have CHANGED Instructions Authorizing Provider acetaminophen 325 MG tablet What changed: ?? how much to take ?? how to take this ?? when to take this ?? reasons to take this Commonly known as: Tylenol Take 1 (one) tablet by mouth every 6 hours as needed for Fever or Pain Roxanna Coburn MD amLODIPine 5 MG tablet What changed: when to take this Commonly known as: Norvasc Quantity Dispensed: 60 tablet Take 1 (one) tablet by mouth at bedtime Roxanna Coburn MD atorvastatin 40 MG tablet What changed: when to take this Commonly known as: Lipitor Quantity Dispensed: 60 tablet Start taking on: January 08, 2022 Take 1 (one) tablet by mouth once daily Roxanna Coburn MD divalproex DR 500 MG tablet What changed: ?? medication strength ?? how much to take ?? additional instructions ?? Another medication with the same name was removed. Continue taking this medication, and follow the directions you see here. Commonly known as: Depakote Quantity Dispensed: 60 tablet Take 2 (two) tablets by mouth 2 times daily Roxanna Coburn MD levETIRAcetam 1000 MG tablet What changed: when to take this Commonly known as: Keppra Quantity Dispensed: 60 tablet Take 2 (two) tablets by mouth every 12 hours Roxanna Coburn MD tamsulosin 0.4 MG capsule What changed: ?? how to take this ?? additional instructions Commonly known as: Flomax Quantity Dispensed: 30 capsule Start taking on: January 08, 2022 Take 1 (one) capsule by mouth once daily At the same time every day after a meal. Roxanna Coburn MD CONTINUE taking these medications which have NOT CHANGED Instructions Authorizing Provider aspirin 81 MG chew tablet Commonly known as: Aspirin Quantity Dispensed: 60 tablet Start taking on: January 08, 2022 Take 1 (one) tablet by mouth once daily Roxanna Coburn MD ibuprofen 600 MG tablet Commonly known as: Motrin Quantity Dispensed: 30 tablet Take 1 (one) tablet by mouth as needed Roxanna Coburn MD lacosamide 200 MG tablet Commonly known as: Vimpat Quantity Dispensed: 60 tablet Take 1 (one) tablet by mouth 2 times daily Roxanna Coburn MD STOP taking these medications Cholecalciferol 25 MCG (1000 UT) Replaced by: vitamin D3 25 MCG (1000 UNITS) tablet Activity: activity as tolerated Diet: Regular diet Wound Care: None needed Follow-up with primary care physician in 2 weeks. Hospital outside installation machinist contacted prior to discharge to schedule appointment. Routed To: PCP Signed: Roxanna Coburn Neurology PGY2 Associated attestation - Humberto Echeverria MD - 01/07/2022 3:46 PM CDT Reviewed history, examined the patient, agree with documented resident notes with the exceptions that are indicated below. I have formulated the diagnosis and plan of management. Please see resident note for details Signed Electronically Humberto Payan MD Furniture Fabricator of Neurology DOS- 01/07/22 * Jase Richmond MD - 12/26/2021 10:12 AM CDT Images from the original note were not included. Physician Discharge Summary Around 20 minutes were spent in discharge process including writing discharge summary. Patient ID: Bi Tabor [id number] 61 year old 1960 Admit date: 12/21/2021 Discharge date: 12/26/2021 Admitting Physician: Sean Raymundo, DO Discharge Physician: Sean Raymundo, DO Admission Diagnoses: Seizures Discharge Diagnoses: Seizures. Discharged Condition: Stable - Is at his baseline. Hospital Course: Bi Tabor??is a 61 year old??male??with PMH including alcohol abuse (resolved 2015), CVA (02/2015), HTN, HLD, prior head injury (from a fall?), cervical osteoarthritis, anxiety, Alzheimer's (earlyonset) and refractory epilepsy (reported onset, two weeks after his head injury), who presented to [facility] for continuous video EEG monitoring for medication adjustment and to quantify seizure burden. ?? Several reported seizure events over night on 12/24, 1mg of ativan given x 1. Patient more drowsy the next morning. He was continued on his prior seizure regimen and after observation for another 24 hours he was discharged to home. ?? EEG Reading: refer to procedure note ?? Home ASMs: Name Pill Size Frequency Total/day Levetiractam?1000 mg tab ?2 - 2 ?4,000mg/day ? Depakote DR ?500 mg tab?1 - 1 ? Depakote DR ?250 mg tab?1 - 1 ?1,500mg/day Lacosamide ?200 mg tab?1??- 1 ?400mg/day? Current ASMs: 12/21/2021 Levetiracetam ?2,000mg am, 2,000mg pm Depakote ?750mg am, 750mg pm Lacosamide ?200mg am, 200mg pm ?? 12/22/2021 Lorazepam 2mg Levetiracetam ?2,000mg am, 2,000mg pm Depakote ?750mg am, 750mg pm Lacosamide ?200mg am, 200mg pm ?? 12/23/2021 Levetiracetam ?2,000mg am, 2,000mg pm Depakote ?750mg am, 750mg pm Lacosamide ?200mg am, 200mg pm Cenobamate 12.5mg pm ?? 12/24/2021 Levetiracetam ?2,000mg am, 2,000mg pm Depakote ?750mg am, 750mg pm Lacosamide ?200mg am, 200mg pm Cenobamate 12.5mg pm ?? 12/25/2021 Lorazepam 1mg am Levetiracetam ? 2,000mg am, 2,000mg pm Depakote ?750mg am, 750mg pm Lacosamide ?200mg am, 200mg pm Cenobamate 12.5mg pm Consults: None. Significant Diagnostic Studies: cEEG monitoring. See separate report for results. Discharge Exam: Exam: General appearance:??Awake, alert, no distress ?? Cortical Function: MS:?Awake, drowsy, Follows Commands ?Oriented to Person, Place and Disoriented to time Language:?Garbled, Coherent, Repetition Intact ?? Cranial Nerves: Normal ocular alignment, No facial palsy ?? Motor: Abnormal Movements:?None Bulk:?Normal Tone:?Normal Strength:?4/5 on LUE & LLE (patient develops post-ictal weakness to left side at baseline) ?? Disposition: Home in care of his family. (sister). Patient Instructions: Current Discharge Medication List START taking these medications Instructions Authorizing Provider * Xcopri 14 x 12.5 MG & 14 x 25 MG Tbpk Generic drug: Cenobamate Quantity Dispensed: 28 Each Start taking on: December 24, 2021 Take 12.5 mg by mouth at bedtime for 14 days, THEN 25 mg at bedtime for 14 days. ELANA Cullen * Cenobamate 14 x 50 MG & 14 x100 MG Tbpk Quantity Dispensed: 28 Each Start taking on: January 22, 2022 Take 50 mg by mouth at bedtime for 14 days, THEN 100 mg at bedtime for 14 days. ELANA Cullen * Cenobamate 14 x 150 MG & 14 x200 MG Tbpk Quantity Dispensed: 28 Each Start taking on: February 19, 2022 Take 150 mg by mouth at bedtime for 14 days, THEN 200 mg at bedtime for 14 days. ELANA Cullen * This list has 3 medication(s) that are the same as other medications prescribed for you. Read thedirections carefully, and ask your doctor or other care provider to review them with you. CONTINUE taking these medications which have NOT CHANGED Instructions Authorizing Provider acetaminophen 325 MG tablet Commonly known as: Tylenol amLODIPine 5 MG tablet Commonly known as: Norvasc Quantity Dispensed: 30 tablet Take 1 tablet by mouth once daily Kortney Vega MD aspirin 81 MG chew tablet Commonly known as: Aspirin Quantity Dispensed: 30 tablet Take 1 tablet by mouth once daily Kortney Vega MD atorvastatin 40 MG tablet Commonly known as: Lipitor Quantity Dispensed: Take 1 (one) tablet by mouth at bedtime Neli Collazo MD Cholecalciferol 25 MCG (1000 UT) Take 1,000 Units by mouth once daily * divalproex DR 250 MG tablet Commonly known as: Depakote Quantity Dispensed: 180 tablet Take 1 (one) tablet by mouth 2 times daily [Take with 250 mg tablets, making 750 mg twice a day] ELANA Cullen * divalproex DR 500 MG tablet Commonly known as: Depakote Quantity Dispensed: 180 tablet Take 1 (one) tablet by mouth 2 times daily [Take with 250 mg tablets, making 750 mg twice a day] ELANA Cullen ibuprofen 600 MG tablet Commonly known as: Motrin Take 600 mg by mouth as needed lacosamide 200 MG tablet Commonly known as: Vimpat Quantity Dispensed: 180 tablet Take 1 (one) tablet by mouth 2 times daily Yana Rm APRN-BELINDA levETIRAcetam 1000 MG tablet Commonly known as: Keppra Quantity Dispensed: 360 tablet Take 2 (two) tablets by mouth 2 times daily ELANA Cullen tamsulosin 0.4 MG capsule Commonly known as: Flomax 0.4 mg once daily * This list has 2 medication(s) that are the same as other medications prescribed for you. Read thedirections carefully, and ask your doctor or other care provider to review them with you. Activity: activity as tolerated Diet: Regular diet Wound Care: None needed Follow-up with PCP and epilepsy clinic as previously planned. Signed: Jase Richmond MD 12/26/2021 10:19 AM Associated attestation - Sean Raymundo DO - 12/26/2021 12:51 PM CDT Patient seen and examined on 12/26/2021. I agree with the findings and plan as outlined in the trainee note. documented in this encounter Discharge Instructions * Discharge Instructions* Roxanna Coburn MD - 12/24/2021 8:26 AM CDT You were admitted to the hospital due to seizures. You were also transferred from the neurology floor to the ICU briefly due to continuous seizures. You were managed with anti-seizure medications and were also put on EEG (which is a machine which shows the seizure activity in the brain). On these medications, youre seizures resolved and now you are okay to be discharged. You were seen by physical therapy who recommended discharge to acute rehab. Epilepsy What you should know: Epilepsy is a brain disorder involving repeated seizures (convulsions). The brain contains many neurons (nerve cells). Normally, the neurons send small eletrical signal to each other And to the body.With epilepsy, there is an abnormal and sudden change in how the neurons send electrical signals. This causes short periods of symptoms that may affect how you move, think or feel. Epilepsy may be caused by conditions affecting the brain, such as a head injury, stroke, or a braintumor. Abnormal development of the brain or an infection may also cause epilepsy. Common signs and symptoms may include jerking of the hands, legs, or face, confusion, staring blankly, or passing out. Epilepsy is diagnosed by blood tests, an electroencephalogram (EEG), or a computerized tomography (CT) scan. Treatment includes anti-epileptic medicines and surgery. After you leave: Medicines Keep a written list of the medicines you take, the amounts, and when and why you take them. Bring the list of your medicines or the pill bottles when you see your caregivers. Learn why you take each medicine. Ask your caregiver for information about your medicine. Do not use any medicines, ofoe-pcm-mesapxn drugs, vitamins, herbs, or food supplements without first talking to caregivers. Always take your medicine as directed by caregivers. Call your caregiver if you think your medications are not helping or if you feel you are having side effects. Do not quit taking your medications until you discuss it with your caregiver. If you are taking medicine that makes you drowsy, do not drive or use heavy equipment. Ask your caregiver when to return for a follow-up visit. Keep all appointments. Write down any questions you may have. This way you will remember to ask these questions during your next visit. Stress: Stress may slow healing and cause illness later. Since it is hard to avoid stress, learn tocontrol it. Learn new ways to relax, such as deep breathing, meditation, relaxing muscles, music, or biofeedback. Talk to someone about things that upset you. Home Care: When an epileptic seizure occurs, the following should be done to prevent injuries: Do not hold or tie the person down. Do not place anything in the person's mouth or try to force the teeth apart. The person is not in danger of swallowing his/her tongue. Do not pour any liquid into the person's mouth or offer food or medicines until the person is completely awake. If possible, turn the person on his/her side during the seizure. Place something soft under the person's head, loosen tight clothing, and clear the area of sharp orhard objects. Stay with the person until the seizure ends. Let the person rest until he is fully awake. Use a watch to time how long the seizure lasts. Watch the type of movements and position of the person's head or eyes during the seizure. For support and more information: Epilepsy is a life-changing disease for you and your family. Accepting that you have epilepsy is hard. You and those close to you may feel angry, sad, or frightened.These feelings are normal. Talk to your caregivers, family, or friends about your feelings. You mayalso want to join an epilepsy support group. This is a group of people who also have epilepsy. Contact the following for more information [facility] [facility] [address] [place], [place] [phone] Phone: Web Address: http://www.epilepsyfoundation.org [place] [employer] [address] [place] [phone] Web Address: http://www.aesnet.org Contact a Caregiver if: You cannot make it to your follow-up visits. You have questions or concerns about epilepsy, medicine, or care. Seek Care Immediately if: You are so depressed you feel you cannot cope with your illness You are confused or cannot think clearly. You had a second seizure soon after the first. Your seizure lasted longer than five minutes. You were injured during or after a seizure. You are having breathing problems or your lips, nailbeds, and face are a blue color. This is an Emergency. Call 911 or 0 (slicer machine operator) for an ambulance to get to the nearest hospital. documented in this encounter Medications at Time [...] mouth 2 times daily 60 tablet 3 01/07/2022 02/16/[address] (Depakote) 500 MG tablet Take 2 (two) tablets by mouth 2 times daily 60 tablet 3 01/07/2022 02/16/2022 folic acid (Folvite) 1 MG tablet Take 1 (one) tablet by mouth once daily 60 tablet 2 01/08/2022 04/01/2022 ibuprofen (Motrin) 600 MG tablet Take 1 (one) tablet by mouth as needed 30 tablet 01/07/2022 04/01/2022 lacosamide (Vimpat) 200 MG tablet Take 1 (one) tablet by mouth 2 times daily 60 tablet 3 01/07/2022 02/16/2022 lacosamide (VIMPAT) 200 MG tablet Take 1 tablet by mouth 2 times daily for 30 days 60 tablet 5 05/16/2019 06/28/2023 levETIRAcetam (Keppra) 1000 MG tablet Take 2 (two) tablets by mouth every 12 hours 60 tablet 3 01/07/2022 02/16/2022 levETIRAcetam (KEPPRA) 1000 MG tablet Take 2 [...] hours as needed for Nausea/Vomiting 01/07/2022 04/01/2022 polyethylene glycol 3350 (Miralax) 17 g [...] 01/08/2022 04/01/2022 documented as of this encounter Progress Notes * Caio Oliveira - 01/07/2022 4:21 PM CDT Facility Transfer Note Level of Care: Actual level of care at discharge: Acute Rehab Facility Facility Name: (include name of person confirming admission): [facility] discharge [facility] ([facility]) RM 211-A NH Made Aware of Special Needs (if applicable): SHARON RN Call Report to: Dionne [phone] Fax D/C Orders to: [phone] Transportation (company and number): [facility] [phone] Certificate of Medical Necessity rationale: Seizure disorder; Fall/Aspiration/Seizure Precautions; Non ambulatory The patient has the following conditions (supporting documentation is within the medical record): ?? Assistance: Max to Moderate Assist of 2 ?? Cognitive: Requires supervision during trip; Dysphagia ?? Medical: Requires medical monitoring during trip ?? Equipment:None ?? Infection: None ?? Orthopedic Device: None Date/time of transfer: 01/07/2022 @ 6pm Accepting MD and contact #: Dr. Tellez Completed and Signed [id number] (if applicable): NA Family/Other Notified of Transfer (name/phone): Ofe Hilliard [phone] ?? [phone] Authorization Skilled Care: NA Authorization for Transportation: NA Verified Qualifying Stay(Skilled Only): NOT APPLICABLE Comments: SW faxed discharge to facility orders, after visit summary, and the MAR report to the accepting facility. CLARITA Rico MBA Public Relations Specialist [phone] 01/07/2022 4:21 PM * Caio Oliveira - 01/07/2022 8:32 AM CDT Government Auditor from [facility] requested call from Pt's physician to answer questions. Physician to call [phone]. UPDATE 01/07/2022 12:39 PM SW visited Pt at bedside Physician confirmed sign out completed w/ PAULINA OLSEN, Dr. eTllez. Dr. Tlelez will accept. Insurance authorization is still pending EMS tentatively arranged for 8:30pm with [facility] [phone] If EMS cannot transport at 8:30pm, Pt MUST admit 01/08. UPDATE 01/07/2022 4:20 PM: Authorization rec'd. EMS arranged for 6pm. CLARITA Rico MBA Public Relations Specialist [phone] 01/07/2022 8:34 AM * Alma Fajardo RN - 01/06/2022 10:47 PM CDT Problem: Pain/Discomfort Goal: Patient exhibits reduced pain/discomfort as evidenced by pain scores 01/06/20222246 by Alma Fajardo RN Outcome: Progressing 01/06/20222246 by Alma Fajardo RN Outcome: Progressing Goal: Patient uses pharmacological and non-pharmacological pain management strategies. 01/06/20222246 by Alma Fajardo RN Outcome: Progressing 01/06/20222246 by Alma Fajardo RN Outcome: Progressing Goal: Patient verbalizes acceptable level of pain relief and ability to engage in desired activity. 01/06/20222246 by Alma Fajardo RN Outcome: Progressing 01/06/20222246 by Alma Fajardo RN Outcome: Progressing Problem: Fall Risk Goal: Fall risk and fall related injury risk are minimized (interventions related to the fall risk can be found in the flowsheet documentation) 01/06/20222246 by Alma Fajardo RN Outcome: Progressing 01/06/20222246 by Alma Fajardo RN Outcome: Progressing Problem: Seizures Goal: Seizures are under control or absent 01/06/20222246 by Alma Fajardo RN Outcome: Progressing 01/06/20222246 by Alma Fajardo RN Outcome: Progressing Problem: SEIZURE EVENT MONITORING Goal: To record an episode to determine whether or not the episode is a seizure. 01/06/20222246 by Alma Fajardo RN Outcome: Progressing 01/06/20222246 by Alma Fajardo RN Outcome: Progressing Problem: General Goal: STG-Patient will Description: Complete BSC transfer moderate assist 01/06/20222246 by Alma Fajardo RN Outcome: Progressing 01/06/20222246 by Alma Fajardo RN Outcome: Progressing Problem: Balance Goal: LTG - Patient will maintain balance to allow for safe mobility 01/06/20222246 by Alma Fajardo RN Outcome: Progressing 01/06/20222246 by Alma Fajardo RN Outcome: Progressing Problem: Nutrient: Malnutrition Goal: Total intake will meet estimated nutrient needs 01/06/20222246 by Alma Fajardo RN Outcome: Progressing 01/06/20222246 by Alma Fajardo RN Outcome: Progressing Problem: Safety related to restraint use Goal: Absence of injury while restrained 01/06/20222246 by Alma Fajardo RN Outcome: Progressing 01/06/20222246 by Alma Fajardo RN Outcome: Progressing Problem: Swallowing Goal: STG - Patient will tolerate recommended food and liquid consistencies without clinical signs and symptoms of aspiration 01/06/20222246 by Alma Fajardo RN Outcome: Progressing 01/06/20222246 by Alma Fajardo RN Outcome: Progressing Goal: STG - Patient will follow recommended swallowing strategies Outcome: Progressing * Roxanna Merida MD - 01/06/2022 5:37 PM CDT Neurology Progress Note Patient: Bi Tabor Room: 507 Age: [age] year old Subjective: Bi Tabor is a 61 year old male with PMH including alcohol abuse (2015), CVA (02/2015),HTN, HLD, prior head injury (from a fall?), cervical osteoarthritis, anxiety, Alzheimer's (early onset) and refractory epilepsy (reported onset, two weeks after his head injury), who presented to [facility] continuous video EEG monitoring for medication adjustment and to quantify seizure burden.? Frequent seizures (>7/hour) during first few days of admission. Frequency was stable but intensity of seizures continued to worsen. Code stroke activated on 12/29/2021 for left sided weakness but stroke workup was negative. Due to concerns from nursing ??staff after frequent seizures, patient was transferred to MICU on 12/30/2021 for close seizure monitoring. ?? Patient is s/p methylprednisolone 1g qdaily x 5 days. Home meds lacosamide, keppra and valproic acid were continued. Clobazam was added given effective response to prn intravenous benzodiazepines. Hewas started on Versed 2mg Q5 min PRN for seizures and was okay to be transferred to neurology flooron 01/03 after being off of Versed for about 24 hours. Doing well on floor. Overnight: No acute events overnight. Patient says that he feels better. No other major concerns or questions. Awaiting discharge to SNF pending insurance auth. SW following. Objective: BP 111/73 Pulse 79 Temp 97.5 ??F (36.4 ??C) (Oral) Resp 16 Ht 5' 11 (1.803 m) Wt 139 lb 5.3 oz (63.2 kg) SpO2 98% Temp (30hrs) Max:98.2 ??F (36.8 ??C) Body mass index is 19.43 kg/m??. Exam: Cortical Function Mental Status Awake, alert, follows some commands and some he does not Orientation Person, place, time, and situation Language Fluency intact, comprehension disrupted, repetition intact Visual Ivan Intact bilaterally to [...] Proximal Lower Distal Lower Right 4/5 4/5 3/5 3/5 Left 4/5 4/5 3/5 3/5 Muscle Stretch Reflexes Hyperreflexia throughout Sensory Light Touch Symmetric and intact bilaterally Noxious Stimuli Symmetric and intact bilaterally Temperature Not tested Pallesthesia Not tested Cerebellar Deferred. Gait Deferred Labs: Reviewed. Assessment and Plan: 61yo M who presented for scheduled EMU admission to quantify seizure burden +/- medication adjustment. Frequent seizures and worsening intensity during admission requiring ICU admission, 5-day intravenous steroid course and addition of clobazam. Patient has responded to clobazam, seizure intensity and frequency improving. Patient is alert and oriented to place, time and situation. Seizures resolved. #Seizures - Continue anti-seizure medications; Clobazam 10mg BID, Depakote 1gm BID, Lacosamide 200mg BID, Keppra 2gm Q12H - Seizure precautions - Clobazam, lacosamide and Keppra, depakote levels sent. Will follow up with labs. #HTN - Continue amlodipine 5mg QHS #Previous Hx of Stroke - Continue Aspirin 81mg QD and Atorvastatin 40mg QD as secondary prevention #Alcohol Abuse - Continue Thiamine 100mg QD - Continue multivitamins - Continue Folic acid - Continue Vitamin D3 #Constipation - Miralax 17g QD #DISPO - SW following patient for disposition to SNF - Patients sister updated regarding dispo plan. Family's preference is [facility]. [facility] will most likely accept patient (as per SW note) - Pending insurance authorization - Medically ready for discharge when authorized. Discussed Assessment and Plan with Attending Physician Dr. Ora Merida MD Neurology Resident Associated attestation - Humberto Echeverria MD - 01/07/2022 8:49 AM CDT Reviewed history, examined the patient, agree with documented resident notes with the exceptions that are indicated below. I have formulated the diagnosis and plan of management. Please see resident note for details Signed Electronically Humberto Payan MD Furniture Fabricator of Neurology DOS- 01/06/22 * Cony Santos COTA - 01/06/2022 4:16 PM CDT [facility] Physical Medicine and Rehabilitation Occupational Therapy Progress Note Patient: Bi Tabor [facility] Record Number: [id number] Date of : 1960 Age: [age] year old Face Mask: SARMIENTO wore mask, gloves, and eye protection during session. Tech: Co-Tx with PT due to level of assist, decreased command following, needs moderate/max cues Discharge Recommendation: Patient will benefit from multidisciplinary inpatient therapies. Precautions: Subjective: 1960 (repeated throughout session), I gotta pee, I peed on myself. At start of therapy session, patient found in bed and with bed alarm on. Pain: Patient has 5/10 pain in feet Follow-up for pain: No follow-up for pain indicated and patient agreed to proceed with treatment Activities of Daily Living Feeding: NT Grooming/Bathing: Moderate assist oral care, pt needed assist opening toothpaste, pt then takes andassist to squeeze in mouth, and Mod/Max A for sitting balance, while EOB. Min A for facial care with set up, had pt reach out to grab towel Upper Extremity Dressing: Maximal assist Tying gown in back once EOB Lower Extremity Dressing: not tested Toileting/Transfers: not tested, pt has condom cath Mobility: Assist device: Walker Rolling: not tested Supine to/from Sit:Moderate assist of 2 Sit to/from Stand: Moderate assist Maximal assist of 2, needs max tactile cues for upright position, hyperextended L knee Bed to/from Chair: not tested Functional Mobility: Unable to take step to HOB Balance: Static Sitting: fair minus, ranged from short stints of SBA, but mainly Mod/Max A for balance, heavy lean to R, cues to sit midline. Dynamic Sitting: poor plus Static Standing: poor Dynamic Standing: poor Vitals: (*Assess the 3 levels of oxygen saturations both for room air and 02 unless rest on room air is 88% or less). Rest BP: 117/81 HR: 80 SpO2 SpO2 99 Room Air Post Activity BP: 125/80 HR: SpO2 SpO2 L 02 Room Air Observations: NAD Activity tolerance: poor plus Modified [place] Score: Cognitive/Perceptual: A&O x's 3, cannot state date even when told, kept repeating birthday overand over. Pt is alert, cooperative and appropriate for therapy. Pt is pleasant, engages in perseveration of birthday and needing to pee, and follows simple directives with 75% accuracy and mod/max cues. Continue to assess safety awareness, insight into deficit. Treatment/Therapeutic Exercise: Treatment session this date focused on ADL training Endurance training Bed mobility Energy conservation Safety awareness HEP training EDUCATION: While performing mobility, exercise and self care, Patient was instructed in: Functional mobility training/weight bearing status, Cognitive retraining, Safety awareness/fall precaution, Home exercise program, Discharge plan and Self care training Presented to patient who demonstrates Fair to Questionable understanding of instructions given. Equipment Issued: none Update Treatment Plan/Goals : Patient will benefit from continued skilled OT services to increase strength/endurance/activity tolerance, decrease pain when indicated, and increase safety/independencewith ADL and functional transfers/mobility. Continue goals per POC. Short Term Goals: Cognition:?1 step commands and 75% of the time Patient will perform grooming??at edge of bed and with minimal assist Patient will perform upper extremity dressing??with minimal assist Patient will perform toileting??with moderate??assist Patient will transfer to bedside commode??with moderate assist Patient will perform supine to/from sit??with minimal assist ?? Filling Separator Goal: Patient to discharge to appropriate next level of inpatient care If patient is discharged from the facility, this note serves as a discharge note if further occupational therapy visits did not occur. Following therapy session, patient left in bed, with bed alarm on and with call light within reach. * Myrna Lombardo, PT - 01/06/2022 3:40 PM CDT [facility] Physical Medicine and Rehabilitation PhysicalTherapy Progress Note Patient: iB Tabor Med Record Number: [id number] Date of : 1960 Age: [age] year old Co-tx with OT due to level of assist Face Mask: procedural mask worn by therapist Tech: No Discharge Recommendation: Patient will benefit from multidisciplinary inpatient therapies. Subjective: Repeats his Mental Status: alert,oriented to self, and hospital . Cooperative. Patient with decreased insight and safety awareness At start of therapy session, patient found in bed and with bed alarm on. Pain: Patient has 5/10 pain in bilateral feet,c/o tingl;ing pain Follow-up for pain: No follow-up for pain indicated and patient agreed to proceed with treatment Weight Bearing Status: No restrictions Mobility: Rolling: Moderate assist Supine to Sit:Moderate assist of 2 Sit to Supine: Moderate assist of 2 Sit to Stand:Maximal assist of 2 Bed to Chair: not tested Gait:Not applicable Balance: Static Sitting: varied greatly,mostly poor plus to poor.Required Sb assist briefly and moderate ot maximal assist Dynamic sitting: poor Static Standing: poor Dynamic Standing: not tested Leans to R in sitting. L knee hyperextends in standing. Vitals: (*Assess the 3 levels of oxygen saturations both for room air and 02 unless rest on room air is 88% or less). Rest BP: 117/81 HR: 80 Sp02 Sp02 99 Room Air L O2 RA Ex/Gait/Activity Without 02 BP: HR: Sp02 Room Air Ex/Gait/Activity With 02 BP: HR: Sp02 L O2 Post Activity BP: 125/80 HR: 119 Sp02 Sp02 93 L O2 Room Air RA Observations: Activity Tolerance: Patient's activity tolerance: poor plus Modified Florentino Score: Treatment/therapeutic Exercise: Bed mobility,supine to/from sit , sit to stand,sitting balance and weight shifting activities activities. AROm R LE and AAROm L LE EDUCATION: While performing PT, Patient was instructed in:Functional mobility training/weight bearing status, Cognitive retraining, Safety awareness/fall precaution, Home exercise program and Discharge plan Patient demonstrated Questionable understanding of instructions given. GOALS: Short Term Goals: Goal Formation Patient unable to participate in goal formulation Patient will perform bed mobility with moderate assist and X 1 Patient will transfer sit to/from stand with moderate assist and X 2 Patient will transfer bed to/from chair with maximal assist and X 2 Filling Separator Goal(s): Patient to discharge to appropriate next level of inpatient care. Update Treatment Plan: Continue PT If patient is discharged from the facility, this note serves as a discharge note if further physical therapy visits did not occur. Following therapy session, patient left in bed, with bed alarm on, with call light within reach andwith RNHermes. * Caio Oliveira - 01/06/2022 1:41 PM CDT Chart reviewed. Pt is off EEG monitoring as of 01/05. Updated therapy notes in chart [facility] to submit for insurance authorization. CLARITA Rico MBA Public Relations Specialist [phone] 01/06/2022 1:42 PM * Elizabeth Briceno - 01/06/2022 10:56 AM CDT Neurology Progress Note Patient: Bi Tabor Room: 507 Age: [age] year old Subjective: Bi Tabor is a 61 year old male with a PMH of alcohol use disorder (resolved in 2015), CVA, HTN,HLD, prior head injury, cervical osteoarthritis, anxiety, cortical atrophy (alcohol use disorder vsearly-onset Alzhemier's), and refractory epilepsy admitted 12/21/21 for refractory epilepsy. Clinical course significant for stroke code 8/02 for left sided weakness; stroke workup negative (NIHSS 19,CT negative). Patient then had worsening seizure activity requiring admit to ICU. Patient s/p methylprednisolone 1g x 5d and transferred to floor once off Versed for 24h on 01/03. Overnight: No acute events overnight. Patient complains of headache and wanting to leave hospital. No active seizures. EEG discontinued yesterday 01/05. Objective: BP 105/69 Pulse 71 Temp 97.7 ??F (36.5 ??C) (Oral) Resp 16 Ht 5' 11 (1.803 m) Wt 139 lb 5.3 oz (63.2 kg) SpO2 96% Temp (30hrs) Max:98.2 ??F (36.8 ??C) Body mass index is 19.43 kg/m??. Exam: General: Con - afebrile, awake Neck - No JVD CV - RRR Pulm - CTAB Abd -soft, NTND Ext - normal ROM Cortical Function Mental Status Awake, alert, takes time to follow commands Orientation Person, place, not to time Language Fluency fair, comprehension intact, repetition intact Visual Ivan Deferred Neglect Deferred Cranial Nerves II Pupils 4 mm and bilaterally reactive to light. Fundoscopic exam not performed. VIII Deferred III/IV/ Minimal horizontal movements with horizontal nystagmus. Vertical movements intact. IX/X Palate elevated symmetrically without phonation abnormalities noted. V Facial sensation symmetric to light touch and intact bilaterally. Corneal reflex not examined. XIUnable to assess VII No facial palsy noted. XII Tongue is midline with normal movements and no atrophy noted. Motor Function Movement No abnormalities noted Bulk No abnormalities noted Tone No abnormalities noted Proximal Upper Distal Upper Proximal Lower Distal Lower Right 4/5 4/5 4/5 4/5 Left 3/5 3/5 2/5 2/5 Muscle Stretch Reflexes BI TRI BR PAT ACH TOES Right 3 2 2 1 1 Down Left 3 2 2 1 1 Down Sensory Light Touch Symmetric and intact bilaterally Noxious Stimuli Not tested Temperature Not tested Pallesthesia Not tested Cerebellar FNF FREEDOM HKS Right Poor Deferred Deferred Left Neglect, moved R hand instead of L Deferred Deferred Gait Deferred Labs: Reviewed. Clobazam, lacosamide, Keppra levels ordered yesterday. Assessment and Plan: Assessment: Bi Tabor is a 61 year old male with a PMH of alcohol use disorder (resolved in 2016), CVA, HTN, HLD, prior head injury, cervical osteoarthritis, anxiety, cortical atrophy (alcohol usedisorder vs early-onset Alzhemier's), and refractory epilepsy admitted 12/21/21 for refractory epilepsy. Clinical course significant for stroke code (negative workup), worsening seizure activity requiring admit to ICU, s/p methylprednisolone 1g x 5d and transferred to floor once off Versed for 24h on 01/03. EEG showed resolved electro clinical focal seizures and R hemisphere slowing and was discontinued yesterday (01/05). Plan: 1) Continue clozabam 10 mg BID, Depakote 16 mg/kg BID, lacosamide 3 mg/kg BID, Keppra 32 mg/kg BID 2) Awaiting insurance to accept [facility] placement Discussed Assessment and Plan with Attending Physician, Dr. Ora Briceno, MS3 * Patricia Berry RN - 01/05/2022 3:14 PM CDT Pt A+OX3; unable to say what year it is but knows month Pt turned q2h Ate well External catheter in place; no bm today EEG d/c'd today Bp in low 100's today * Shakila Medina OT - 01/05/2022 1:08 PM CDT [facility] Physical Medicine and Rehabilitation Occupational Therapy Initial Evaluation Note Patient: Bi Tabor Med Record Number: [id number] Date of : 1960 Age: [age] year old Face Mask: procedural mask + gloves worn throughout Co-eval with PT secondary to new therapy orders following hold 2/2 seizures. Discharge Recommendation: Patient will benefit from multidisciplinary inpatient therapies. In addition to the 1:1 evaluation of the patient, additional eval time was spent completing the chart review prior to the assessment, completing the multidisciplinary plan of care and education plan post evaluation and communicating results of the eval to other treatment team members. Plan: ADL training Adaptive equipment training Cognitive retraining Functional transfer training Endurance training Bed mobility Safety awareness HEP training Physician Orders: Evaluation and Treat Precautions: falls, seizures DIAGNOSIS: Patient Active Problem List: Seizure Cerebrovascular accident Hyperlipidemia Hypertension Insomnia Low back pain Osteoporosis Truncal ataxia Therapeutic procedure Seizures Alcohol abuse, uncomplicated Benign neoplasm of prostate Epilepsy, unspecified, not intractable, without status epilepticus Difficulty in walking, not elsewhere classified Muscle weakness (generalized) Other specified rheumatoid arthritis, unspecified site Syncope and collapse Alzheimer's disease with early onset Cognitive communication deficit COVID-19 Dysphagia, oropharyngeal phase 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 CVA (cerebral vascular accident) ??? HTN (hypertension) ??? Seizure SUBJECTIVE: Pt received alert and agreeable to therapy re-assessment. PATIENT GOALS: Not explicitly stated Home living: Type of Residence: Apartment Lives with:: Alone Steps to Enter: No Home Structure: One Story Primary Bedroom: First Floor Primary Bathroom: First Floor Bathroom : Tub/Shower Combo Equipment At Home: Walker-4 Wheeled with Seat;Commode-Bedside;Wheelchair-Standard;Chair-Shower;LifeLine Button Prior Function: Mobility: (tansfers to w/c independently; currently working on walking with w/w in outpatient PT) Fallen Within 6 Mos: (daughter reports she is not aware of pt having any falls since Jun 2021) Have Help at Home?: Yes, there is help at home now How often is assistance provided?: emergency worker services 3 days/wk 4 hrs/day. Family members come by pt's apartment 1-2 times a day. Per sister since Jun of this year pt has been independent with toileting, grooming and dressing; family or choreworker assist with bathing and all IADLs. Level of Help Sufficient?: (not at current level of function) Oxygen at Home: No Activity at Home: Sedentary Who manages medications?: family At start of therapy session, patient found in bed and with bed alarm on. Pain: Patient does not endorse pain throughout session Follow-up for pain: No follow-up for pain indicated and patient agreed to proceed with treatment OBJECTIVE: General Appearance: Male with cEEG received in bed Precautions: IV's: Peripheral line and cEEG Edema: Moderate swelling noted at dorsal aspect of L hand Vitals: (*Assess the 3 levels of oxygen saturations both for room air and 02 unless rest on room air is 88% or less). Rest BP: 108/73 HR: 81 SpO2 SpO2 97% Room Air L 02 RA Post Activity BP: 116/80 HR: 79 SpO2 SpO2 99% L 02 Room Air RA Observations: No s/s dyspnea, dizziness throughout Cognitive: A&O to self, month & day. Pt demo's inconsistent command following averaging approximately 40% of simple instructions with decreased processing time, decreased insight and safety awareness. Perceptual: Tracks grossly to voice/moving stimuli in all 4 quadrants, decreased visual scanning tolocate self-care materials Upper extremity range of motion: PROM WFL b/l; testing limited due to cognitive deficits Upper extremity strength: unable to formally test due to cognitive deficits; R UE strength > L UE Tone: L UE extensor tone noted Coordination: unable to formally assess due to cognitive deficits; L UE deficits noted per observation Sensation: Pt does not endorse numbness/tingling of B UE Patient's activity tolerance: poor plus FUNCTIONAL MOBILITY Not tested Independent Stand by Assist Minimal Moderate Maximum Dependent Rolling x Supine to/from sit x2 Sit to/from Standing x2 unable to achieve full upright stance Bed to/from chair x A gait belt and non-slip socks were used for all out of bed mobility. Balance: Static Sitting: fair minus Dynamic Sitting: poor Static Standing: not tested Dynamic Standing: not tested Activities of Daily Living Feeding: Stephan cup with straw to mouth with vc for sips Grooming/Bathing: Minimal assist to wipe mouth seated EOB Upper Extremity Dressing: not tested Lower Extremity Dressing: not tested Toileting/Transfers: not tested Splint Issued/Checked: none TREATMENT / EDUCATION / EVALUATION: Purpose of Occupational Therapy evaluation explained. While performing mobility and self care, Patient was instructed in: Functional mobility training/weight bearing status, Cognitive retraining, Safety awareness/fall precaution and Self care training Presented to patient who demonstrates Questionable understanding of instructions given. INFORMED CONSENT TO TREATMENT: Unable to obtain informed consent due to altered mental status or questionable understanding. ASSESSMENT: Functional performance limited due to: limited activities of daily living, decreased mobility, decreased cognition, upper extremity function, endurance and decreased safety awareness Modified [place] Score: 5 Nurse and PT contacted regarding patient status and/or discharge plan. Short Term Goals: Cognition: 1 step commands and 75% of the time Patient will perform grooming at edge of bed and with minimal assist Patient will perform upper extremity dressing with minimal assist Patient will perform toileting with moderate assist Patient will transfer to bedside commode with moderate assist Patient will perform supine to/from sit with minimal assist Filling Separator Goal: Patient to discharge to appropriate next level of inpatient care If patient is discharged from the facility, this note serves as a discharge summary if further occupational therapy visits did not occur. Following therapy session, patient left in bed, with bed alarm on and with call light within reach. * Myrna Lombardo, PT - 01/05/2022 11:41 AM CDT [facility] Physical Medicine and Rehabilitation Physical Therapy Re- Evaluation Note Patient: Bi Tabor Med Record Number: [id number] Date of : 1960 Age: [age] year old Co-eval with OT due to unknown level of assist PPE worn by staff: gloves;mask - procedural Tech: No Discharge Recommendation: Patient will benefit [...] and Treat PRECAUTIONS: Weight Bearing Status: (No restrictions) Activity Level: Up ad daniela DIAGNOSIS: Patient Active Problem List: Seizure Cerebrovascular accident Hyperlipidemia Hypertension Insomnia Low back pain Osteoporosis Truncal ataxia Therapeutic procedure Seizures Alcohol abuse, uncomplicated Benign neoplasm of prostate Epilepsy, unspecified, not intractable, without status epilepticus Difficulty in walking, not elsewhere classified Muscle weakness (generalized) Other specified rheumatoid arthritis, unspecified site Syncope and collapse Alzheimer's disease with early onset Cognitive communication deficit COVID-19 Dysphagia, oropharyngeal phase 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 CVA (cerebral vascular accident) ??? HTN (hypertension) ??? Seizure SUBJECTIVE: Subjective: I'm cold PATIENT GOALS: Patient's Primary Concern: be better Home Situation: Type of Residence: Apartment Lives with:: Alone Steps to Enter: No Home Structure: One Story Primary Bedroom: First Floor Primary Bathroom: First Floor Bathroom : Tub/Shower Combo Equipment At Home: Walker-4 Wheeled Prior Level of Functioning: Pain Assessment: Pain Rating Score #: 0 Follow-up for pain: No follow-up for pain indicated and patient agreed to proceed with treatment OBJECTIVE: At start of therapy session, patient found in bed and with bed alarm on General Appearance: Thin,elderly,male with continuous EEG LDAs: IV's: Peripheral line and [place] and continuous EEG Edema: no edema noted in bilateral lower extremities Vitals: (*Assess the 3 levels of oxygen saturations both for room air and 02 unless rest on room air is 88% or less). Rest BP: 108/73 HR: 81 Sp02 Sp02 97 Room Air L O2 RA Ex/Gait/Activity Without 02 BP: HR: Sp02 Room Air Ex/Gait/Activity With 02 BP: HR: Sp02 L O2 Post Activity BP: 116/80 HR: 79 Sp02 Sp02 99 L O2 Room Air RA Observations: denied dizziness and SOB Mental Status/Cognition: Level of Consciousness-Adult: Alert;Eyes Open Spontaneously Orientation Level: Oriented to Place;Oriented to Person. Patient with decreased safety awareness and insight and delayed processing. Patent with inconsistent command following,~ 40% of 1-step commands ROM: RLE: Unable to accurately Assess due to decreased cognition LLE: Unable to accuraately assess due to decreased cognition Strength: RLE:unable to accurately assess due to decreased cogntion,R LE stronger LLE: unable to accurately assess due to decreased cogntion,L LE weaker Tone: RLE: no abnormal tone noted LLE: minimal Coordination: RLE: impaired LLE: impaired Sensation: RLE: no complaints of numbness or tingling LLE: no complaints of numbness or tingling Mobility: A gait belt and non-slip socks were used for all out of bed activity this date. Bed Mobility: Supine to Sit: Moderate Assistance;X 2 with HOB in semi-fowlers position Sit to Supine: Moderate Assistance;X 2 Transfers: Sit to Stand: Maximum Assistance;X 2 (attempted,unable to stand erect) Gait: Weight Bearing Status: (No restrictions) Distance Ambulated: 0 FEET Comments: Balance: Balance Scales/Tests Used: Sitting: Static/Dynamic;Standing: Static/Dynamic Sitting - Static: Fair - Sitting - Dynamic: Poor Standing - Static: Poor Standing - Dynamic: Not tested ACTIVITY TOLERANCE: Patient's activity tolerance: fair minus TREATMENT/INTERVENTIONS: evaluation, ROM of LEs, bed mobility training, balance activities and monitoring of vitals Modified [place]: EDUCATION: While performing PT, Patient was instructed in:functional mobility training, weight bearing status, safety awareness/fall precautions , home exercise program and Cognitive reorientation Presented to patient who demonstrates Questionable understanding of instructions given. INFORMED CONSENT TO TREATMENT: Plan of care is discussed but patient with questionable understanding. ASSESSMENT: Patient would benefit from additional Physical Therapy sessions to achieve the following functionalgoals to enhance independence. Short Term Goals: Goal Formation Patient unable to participate in goal formulation Patient will perform bed mobility with moderate assist and X 1 Patient will transfer sit to/from stand with moderate assist and X 2 Patient will transfer bed to/from chair with maximal assist and X 2 Filling Separator Goal(s): Patient to discharge to appropriate next level of inpatient care. Equipment Issued: none Plan: Plan: Transfer training Assistive device training Bed mobility training Balance training Safety awareness Home exercise program training If patient is discharged from the facility, this note serves as a discharge summary if further physical therapy visits did not occur. Refer to filed flowsheet for further details. Following therapy session, patient left in bed, with bed alarm on , with call light within reach, with RNPatricia aware. * Roxanna Coburn MD - 01/05/2022 11:38 AM CDT Neurology Progress Note Patient: Bi Tabor Room: 507 Age: [age] year old Subjective: Bi Tabor is a 61 year old male with PMH including alcohol abuse (resolved 2015), CVA (02/2015),HTN, HLD, prior head injury (from a fall?), cervical osteoarthritis, anxiety, Alzheimer's (early onset) and refractory epilepsy (reported onset, two weeks after his head injury), who presented to [facility] continuous video EEG monitoring for medication adjustment and to quantify seizure burden.? Frequent seizures (>7/hour) during first few days of admission. Frequency was stable but intensity of seizures continued to worsen. Code stroke activated on 12/29/2021 for left sided weakness but stroke workup was negative. Due to concerns from nursing ??staff after frequent seizures, patient was transferred to MICU on 12/30/2021 for close seizure monitoring. ?? Patient is s/p methylprednisolone 1g qdaily x 5 days. Home meds lacosamide, keppra and valproic acid were continued. Clobazam was added given effective response to prn intravenous benzodiazepines. Hewas started on Versed 2mg Q5 min PRN for seizures and was okay to be transferred to neurology flooron 01/03 after being off of Versed for about 24 hours. Doing well on floor. Overnight: No acute events overnight. Patient says that he feels better. No other major concerns or questions. Objective: BP 109/69 Pulse 69 Temp 97.7 ??F (36.5 ??C) (Oral) Resp 18 Ht 5' 11 (1.803 m) Wt 139 lb 5.3 oz (63.2 kg) SpO2 100% Temp (30hrs) Max:98.4 ??F (36.9 ??C) Body mass index is 19.43 kg/m??. Exam: Cortical Function Mental Status Awake, alert, follows some commands and some he does not Orientation Person, place, time, and situation Language Fluency intact, comprehension disrupted, repetition intact Visual Ivan Intact bilaterally to [...] Upper Proximal Lower Distal Lower Right 3/5 3/5 2/5 2/5 Left 3/5 3/5 2/5 2/5 Muscle Stretch Reflexes Hyperreflexia throughout Sensory Light Touch Symmetric and intact bilaterally Noxious Stimuli Symmetric and intact bilaterally Temperature Not tested Pallesthesia Not tested Cerebellar Non-intact cerebellar exam. Not able to follow commands Gait Deferred Labs: Reviewed. Assessment and Plan: 61yo M who presented for scheduled EMU admission to quantify seizure burden +/- medication adjustment. Frequent seizures and worsening intensity during admission requiring ICU admission, 5-day intravenous steroid course and addition of clobazam. Patient has responded to clobazam, seizure intensity and frequency improving. Patient is alert and oriented to place, time and situation. #Seizures - Patient was on cEEG, but that has since been improving. Will discontinue EEG today - Continue anti-seizure medications; Clobazam 10mg BID, Depakote 1gm BID, Lacosamide 200mg BID, Keppra 2gm Q12H - Seizure precautions - Clobazam, lacosamide and Keppra levels. Will follow up with labs. #HTN - Continue amlodipine 5mg QHS #Previous Hx of Stroke - Continue Aspirin 81mg QD and Atorvastatin 40mg QD as secondary prevention #Alcohol Abuse - Continue Thiamine 100mg QD - Continue multivitamins - Continue Folic acid - Continue Vitamin D3 #Constipation - Miralax 17g QD #DISPO - SW following patient for disposition to SNF - Patient needs updated PT/OT notes for dispo. PT and OT will see patient today and put in their final recommendations. - Patients sister updated regarding dispo plan. Family's preference is [facility]. [facility] will most likely accept patient (as per SW note) - Pending insurance authorization - Will follow up with SW - Medically ready for discharge when authorized. Discussed Assessment and Plan with Attending Physician Dr. Ora Coburn MD PGY2 Neurology Associated attestation - Humberto Echeverria MD - 01/05/2022 12:44 PM CDT Reviewed history, examined the patient, agree with documented resident notes with the exceptions that are indicated below. I have formulated the diagnosis and plan of management. Please see resident note for details Signed Electronically Humberto Payan MD Furniture Fabricator of Neurology, * Glo Clarke SLP - 01/05/2022 10:28 AM CDT [facility] Physical Medicine and Rehabilitation Swallow Treatment Patient: Bi [facility]abor [facility] Record Number: [id number] Date of : 1960 Age: [age] year old PPE: PPE worn by staff: gloves;mask - procedural PPE worn by patient: gown - patient, clean Impressions: Pt's swallow function re-assessed at bedside. Pt presents with intact oropharyngeal swallow function. Administered trials of thin liquids via straw and softened solids with pudding. Pt demonstrated mildly prolonged mastication which is likely d/t dentition. Recommend patient continue diet, no further ST needs anticipated at this time. Recommendations: Diet Liquids Recommendation: Thin/ Thin (0) Diet Solids Recommendation: Mechanical Soft/Easy to Chew (EC7) Recommended Form of Meds: Whole;With liquid;As Tolerated Compensatory Swallowing Strategies: 90 Degrees elevation for all oral intake;Periodic supervision with meals;Alternate solids and liquids;Small bites/sips;Eat/Feed slowly Discharge Recommendations: Speech therapy is not recommended at this time. Goals noted above met. SUBJECTIVE: Patient Goals: I am okay Follow-up for pain: No follow-up for pain indicated and patient agreed to proceed with treatment OBJECTIVE: Level of Consciousness: alert Orientation Level: oriented to person, oriented to place, oriented to situation Positioning: Upright in bed Respiratory Status: room air Swallow Trials: Thin Liquid: Presentation: Straw-Self Fed Oral: Within Functional Limits Pharyngeal: Delayed Swallow;Decreased Laryngeal Elevation Solid: Presentation: Assisted Oral: Increased Anterior to Posterior Transit Pharyngeal: Within Functional Limits Assessment: Risk For Aspiration: Mild Primary Diagnostic Impression - Oral: Mild Primary Diagnostic Impression - Pharyngeal: Mild Treatment/Education/Interventions: While performing PLANT GENERAL MANAGER, Pt aware of plan of care and agrees with discharge from ST Patient demonstrated Good understanding of instructions given. INFORMED CONSENT TO TREATMENT: Plan of care including recommended therapy, goals and frequency, discussed with patient who understands and agrees to proceed. Short Term Goals Met Filling Separator Goal (s): Met Plan: No further ST needs anticipated at this time Glo Speech Pathologist * Caio Oliveira 01/05/2022 10:26 AM CDT Chart review. [facility] is following and will accept. Needs update PT/OT notes. Insurance authorization required. CLARITA Rico, PRACHI Public Relations Specialist [phone] 01/05/2022 10:27 AM * Elizabeth Briceno - 01/05/2022 8:11 AM CDT Neurology Progress Note Patient: Bi Tabor Room: 507 Age: [age] year old Subjective: Bi Tabor is a 61 year old male with a PMH of alcohol use disorder (resolved in 2015), CVA, HTN,HLD, prior head injury, cervical osteoarthritis, anxiety, cortical atrophy (alcohol use disorder vsearly-onset Alzhemier's), and refractory epilepsy admitted 12/21/21 for refractory epilepsy. Clinical course significant for stroke code 12/29 for left sided weakness; stroke workup negative (NIHSS 19,CT negative). Patient then had worsening seizure activity requiring admit to ICU. Patient s/p methylprednisolone 1g x 5d and transferred to floor once off Versed for 24h on 01/03. Overnight: No acute events overnight. Patient says he is doing well and does not have any complaints. No active seizures. He is still on cEEG. Objective: BP 118/68 Pulse 79 Temp 97.5 ??F (36.4 ??C) (Oral) Resp 16 Ht 5' 11 Wt 139 lb 5.3 oz SpO2 96% Temp (30hrs) Max:98.4 ??F (36.9 ??C) Body mass index is 19.43 kg/m??. Exam: General: Con - afebrile, awake Neck - No JVD CV - RRR Pulm - CTAB Abd -soft, NTND Ext - normal ROM Cortical Function Mental Status Awake, alert, takes time to follow commands Orientation Person, place, not to time at 8am but to time at 10am Language Fluency fair, comprehension intact, repetition intact Visual Ivan Deferred Neglect Deferred Cranial Nerves II Pupils 4 mm and bilaterally reactive to light. Fundoscopic exam not performed. VIII Deferred III/IV/ Extraocular muscles intact. No diplopia, ptosis or convergence abnormalities noted. Possible horizontal nystagmus. IX/X Palate elevated symmetrically without phonation abnormalities noted. V Facial sensation symmetric to light touch and intact bilaterally. Corneal reflex not examined. XIShoulder shrug intact. VII No facial palsy noted. XII Tongue is midline with normal movements and no atrophy noted. Motor Function Movement No abnormalities noted Bulk No abnormalities noted Tone No abnormalities noted Proximal Upper Distal Upper Proximal Lower Distal Lower Right 4/5 4/5 4/5 4/5 Left 4/5 4/5 4/5 4/5 Muscle Stretch Reflexes BI TRI BR PAT ACH TOES Right 3 2 2 2 2 Deferred Left 3 2 2 2 2 Deferred Sensory Light Touch Symmetric and intact bilaterally Noxious Stimuli Not tested Temperature Not tested Pallesthesia Not tested Cerebellar FNF FREEDOM HKS Right Poor Deferred Deferred Left Poor Deferred Deferred Gait Deferred Labs: Reviewed. Clobazam, lacosamide, Keppra levels ordered this AM. Valproic level ordered this AM: 118. Assessment and Plan: Assessment: Bi Tabor is a 61 year old male with a PMH of alcohol use disorder (resolved in 2015), CVA, HTN, HLD, prior head injury, cervical osteoarthritis, anxiety, cortical atrophy (alcohol usedisorder vs early-onset Alzhemier's), and refractory epilepsy admitted 12/21/21 for refractory epilepsy. Clinical course significant for stroke code (negative workup), worsening seizure activity requiring admit to ICU, s/p methylprednisolone 1g x 5d and transferred to floor once off Versed for 24h on 01/03. EEG showed resolved electro clinical focal seizures and R hemisphere slowing (5am 01/03 to 5am 01/04). Plan: 1) Discontinue EEG monitoring 2) Continue clozabam 10 mg BID, Depakote 16 mg/kg BID, lacosamide 3 mg/kg BID, Keppra 32 mg/kg BID 3) Family wants[facility] placement 4) Needs updated PT/OT note prior to discharge Discussed Assessment and Plan with Attending Physician, Dr. Ora Briceno, MS3 * Duy Alejo RN - 01/05/2022 12:09 AM CDT Problem: Pain/Discomfort Goal: Patient exhibits [...] in the flowsheet documentation) Outcome: Progressing Problem: Seizures Goal: Seizures are under control or absent Outcome: Progressing Problem: SEIZURE EVENT MONITORING Goal: To record an episode to determine whether or not the episode is a seizure. Outcome: Progressing Problem: General Goal: STG-Patient will Description: Complete BSC transfer moderate assist Outcome: Progressing Problem: Balance Goal: LTG - Patient will maintain balance to allow for safe mobility Outcome: Progressing Problem: Nutrient: Malnutrition Goal: Total intake will meet estimated nutrient needs Outcome: Progressing Problem: Safety related to restraint use Goal: Absence of injury while restrained Outcome: Progressing Problem: Swallowing Goal: STG - Patient will tolerate recommended food and liquid consistencies without clinical signs and symptoms of aspiration Outcome: Progressing Goal: STG - Patient will follow recommended swallowing strategies Outcome: Progressing * Jose M Gomez RN - 01/04/2022 1:52 PM CDT Case Management Progress Note Anticipated level of care at discharge: Acute Rehab Facility Discharge Plan: Patient is new to my service. Discharge needs dependent on response to clinical treatment and therapy recommendations. CM will continue to follow. Current recommendation is for acute rehab. Basic Needs Assessment (BNA) Score: Anticipated Discharge Date: Anticipated Discharge Date: 01/05/22 Patient/Family provided with list of resources? Unknown Preferred Provider / High Quality Network List given?: Unknown Reason for provider choice: Unknown Transportation at Discharge: Family Follow Up Appointment: Transportation to MD:Family Equipment at Home: Equipment At Home: Walker-4 Wheeled with Seat;Commode-Bedside;Wheelchair-Standard;Chair-Shower;Life Line Button List DME patient requires but does not [...] Transportation: Name: Jose M Gomez RN Phone: [phone] * Ana Castro RD/NOLAN - 01/04/2022 11:51 AM CDT Nutrition Re-Assessment Brief Synopsis: Patient is dx with malnutrition; Specific criteria can be found in assessment below Nutrition Plan: Continue soft and bite sized diet. Ensure High Protein (160 kcals, 16 g protein, 19 g carbohydrate) TID Recommendations to Physician: Supervise/assist with feedings as needed to encouraged PO intake Advance diet per PLANT GENERAL MANAGER recommendations Comments: Pt scheduled for reassessment. Pt transferred to ICU 12/30 for monitoring of seizures; transferred back to floor 01/03. TF discontinued 01/03. PLANT GENERAL MANAGER following; diet advanced, see above. Reported POintake noted in chart is 25% of dinner last night. RD added orders for ONS, see above, to increase kcal and protein intake. LBM reported 01/02, active bowel sounds - on bowel regimen. Will continue to follow. Assessment: Med/Surg History and Clinical Diagnoses: seizure; PMH including alcohol abuse (resolved 2015), CVA,HTN, HLD, prior head injury, cervical osteoarthritis, anxiety, Alzheimer's (early onset) and refractory epilepsy. Diet order accuracy Current diet order: Soft & Bite Sized (6) / Advanced Soft (DYS3) Current supplement order: d/c Nutritional Supplement at Discharge: Yes Current tube feeding order: d/c 01/03 Nutrition recommendation: alter/change nutrition order P.O.Intake for the past 48 hrs:% Meal Taken Av % Min: 25 % Max: 25 % Supplement(s) Consumed- Last 48 hours None Food Allergies: No known food allergies GI Concerns: None Chewing/Swallowing: Altered Dentition (missing teeth) Pain affecting intake: No Admission weight: Weight: 130 lb (59 kg) (12/21/21 1236) Recent Weights/Methods 05/01/2021 2236 08/28/2021 1101 09/01/2021 1359 12/09/2021 1023 12/21/2021 1236 01/01/2022 0200 01/02/2022 0200 01/03/2022 0300 Weight: 168 lb (76.2 kg) -- -- 131 lb (59.4 kg) 130 lb (59 kg) 143 lb 8.3 oz (65.1 kg) 142 lb 3.2 oz (64.5 kg) 139 lb 5.3 oz (63.2 kg) Weight Method (Utilize Scales): -- -- -- -- Estimated Bedscale Bedscale Bedscale Wt Comments: Wt up from admit, monitoring. Height: 5' 11 (180.3 cm) IBW/lb (Calculated) Male: 172 , Usual weight/lb: 137lb (Reported by pt) Laboratory values reviewed. Recent Labs Component Name 01/04/22 0924 01/03/22 0338 01/02/22 0346 12/31/21 0504 12/30/21 0119 12/29/21 0721 12/27/21 0117 BUN 18 22 20 - 25 19 19 CREATININE 0.78 0.64* 0.71 - 0.81 0.86 0.89 NA 144 146* 145 - 141 140 141 POTASSIUM 3.7 3.9 4.8* - 4.4 4.6* 4.1 CL 105 107 105 - 107 103 104 CO2 32* 28 29 - 25 24 22 GLUCOSE 87 100 150* - 158* 139* 84 CALCIUM 8.9 8.7 9.3 - 9.1 9.7 9.5 PROT - - - - 6.0 7.2 6.7 ALB - - - - 3.0* 3.4 3.3* TBILI - - - - 0.2 0.4 0.5 ALKPHOS - - - - 62 73 74 ALT - - - - 20 27 26 AST - - - - 20 25 32 ANIONGAP 11 15 16 - 13 18 19* BCR 23 34* 28* - 31* 22 21 OSMOLALITY 299 305* 305* - 300 295 293 AGRATIO - - - - 1.0* 0.9* 1.0* EGFR >90 >90 >90 - >90 >90 >90 - = values in this interval not displayed. Medications noted. Current Facility-Administered Medications Medication ??? 0.9% NaCl injection 3 mL ??? amLODIPine (Norvasc) tablet 5 mg ??? aspirin chew tablet 81 mg ??? atorvastatin (Lipitor) tablet 40 mg ??? cloBAZam (Onfi) tablet 10 mg ??? dextrose IV 12.5 g Or ??? dextrose IV 25 g ??? divalproex DR (Depakote) tablet 1,000 mg ??? enoxaparin (Lovenox) injection 40 mg ??? folic acid (Folvite) tablet 1 mg ??? glucagon (Glucagen) injection 1 mg ??? glucose (Diabetic Use) (Dex4 Glucose) oral liquid ??? glucose (Diabetic Use) oral gel ??? glucose chew tablet 4 tablet ??? lacosamide (Vimpat) tablet 200 mg ??? levETIRAcetam (Keppra) tablet 2,000 mg ??? multivitamin daily tablet 1 tablet ??? ondansetron (Zofran) injection 4 mg ??? polyethylene glycol 3350 (Miralax) packet 17 g ??? tamsulosin (Flomax) capsule 0.4 mg ??? thiamine (Vitamin B-1) tablet 100 mg ??? vitamin D3 (Cholecalciferol) 25 MCG (1000 UNITS) tablet 1,000 Units Skin/Wound: WNL Estimated Energy Needs: KCAL: 1770-2065kcal (30-35kca/kg (ABW)) Protein (g): 89-103g (20% of estimated kcal) Fluid (ml): 1 ml/kcal Needs based on: Kcal/kg- (Comment) (ABW: 130lb (59kg); EMR, estimated) Recommended Access Route: PO Malnutrition Etiology: Malnutrition in the context of: acute disease or injury, Malnutrition Severity: Severe Unintended weight change: Severe weight loss Weight Loss: > 10% x 6 months (Per wt hx reported in EMR; unsure of accuracy) BMI: Body mass index is 19.43 kg/m??. GI Concerns: None Nutrition Focused Physical Assessment: Loss of Subcutaneous Fat Orbital: Mild Buccal: Mild Tricep: Moderate Muscle Loss Temples (Temporalis Muscle): Mild Clavicles (Pectoralis & Deltoids): Mild Shoulders (Deltoids): Mild Interosseous Muscle: Moderate Thigh (Quadriceps): Moderate Calf (Gastrocnemius): Moderate Education needed: Supplements Education Provided: Prior to Discharge Nutrition Care Process (1) Nutrition Diagnostic Statement: Malnutrition severity: : Moderate related to:: inadequate protein-energy intake as evidenced by:: BMI less than 19;loss of subcutaneous fat;loss of muscle mass Nutrition Diagnostic Statement Progress: Nutrition problem continues Nutrition Intervention: Meals and snacks:;Medical Food Supplements: Monitoring: PO intake, labs, weight, BM, and meds Evaluation: Nutrition Goal: Total intake will meet estimated nutrient needs Nutrition Goal Timeframe: Throughout stay Nutrition Goal Progress: Continue with current goal Ana Castro RDN, [facility] [id number] * Roxanna Coburn MD - 01/04/2022 11:09 AM CDT Neurology Progress Note Patient: Bi Tabor Room: 507 Age: [age] year old Subjective: Bi Tabor is a 61 year old male with PMH including alcohol abuse (resolved 2015), CVA (02/2015),HTN, HLD, prior head injury (from a fall?), cervical osteoarthritis, anxiety, Alzheimer's (early onset) and refractory epilepsy (reported onset, two weeks after his head injury), who presented to [facility] continuous video EEG monitoring for medication adjustment and to quantify seizure burden.? Frequent seizures (>7/hour) during first few days of admission. Frequency was stable but intensity of seizures continued to worsen. Code stroke activated on 12/29/2021 for left sided weakness but stroke workup was negative. Due to concerns from nursing ??staff after frequent seizures, patient was transferred to MICU on 12/30/2021 for close seizure monitoring. ?? Patient is s/p methylprednisolone 1g qdaily x 5 days. Home meds lacosamide, keppra and valproic acid were continued. Clobazam was added given effective response to prn intravenous benzodiazepines. Hewas started on Versed 2mg Q5 min PRN for seizures and was okay to be transferred to neurology flooron 01/03 after being off of Versed for about 24 hours. Overnight: No acute events overnight. This morning patient is doing well. He does not have any complains or concerns. No active seizures. He is currently on cEEG which shows resolving electro-clinical focal seizures and right hemispheric slowing. Patient having breakfast in the morning when I went in to see him. Objective: BP 140/72 Pulse 56 Temp 97.2 ??F (36.2 ??C) (Oral) Resp 18 Ht 5' 11 (1.803 m) Wt 139 lb 5.3 oz (63.2 kg) SpO2 99% Temp (30hrs) Max:98.8 ??F (37.1 ??C) Body mass index is 19.43 kg/m??. Exam: General: Con - NAD, afebrile, awake Heent - NCAT, MMM, anicteric Neck - No JVD, LAD, trachea midline CV - RRR for age, normal s1/s2, no m/r/g Pulm - CTAB, no w/r/r Abd - BS+, soft, NTND Ext: No c/c/e, 2+ dpp, normal ROM Cortical Function Mental Status Awake, alert, follows some commands and some he does not Orientation Person, place, time, and situation Language Fluency intact, comprehension disrupted, repetition intact Visual Ivan Intact bilaterally to [...] Upper Proximal Lower Distal Lower Right 3/5 3/5 2/5 2/5 Left 3/5 3/5 2/5 2/5 Muscle Stretch Reflexes Hyperreflexia throughout Sensory Light Touch Symmetric and intact bilaterally Noxious Stimuli Symmetric and intact bilaterally Temperature Not tested Pallesthesia Not tested Cerebellar Non-intact cerebellar exam. Not able to follow commands Gait Deferred Labs: Reviewed. Assessment and Plan: 61yo M who presented for scheduled EMU admission to quantify seizure burden +/- medication adjustment. Frequent seizures and worsening intensity during admission requiring ICU admission, 5-day intravenous steroid course and addition of clobazam. Patient has responded to clobazam, seizure intensity and frequency improving. Patient is alert and oriented to place, time and situation. Patient passed swallow evaluation and has been put on soft, bite size diet. #Seizures - Continue EEG monitoring for now as patient has had multiple seizures though the frequency and intensity are improving - Correct electrolytes - Continue anti-seizure medications; Clobazam 10mg BID, Depakote 1gm BID, Lacosamide 200mg BID, Keppra 2gm Q12H - Seizure precautions - Valproic acid, Clobazam, lacosamide and Keppra levels. Will follow up with labs. - If EEG remains improving or persistent improvement, then can come off the EEG tomorrow #HTN - Continue amlodipine 5mg QHS #Previous Hx of Stroke - Continue Aspirin 81mg QD and Atorvastatin 40mg QD as secondary prevention #Alcohol Abuse - Continue Thiamine 100mg QD - Continue multivitamins - Continue Folic acid - Continue Vitamin D3 #Constipation - Miralax 17g QD #DISPO - SW following patient for disposition to SNF - Patient needs updated PT/OT notes for dispo. Ordered PT and OT. Will followup - Patients sister updated regarding dispo plan. Family's preference is [facility]. - Will follow up with ASHWIN Discussed Assessment and Plan with Attending Physician Dr. Ora Coburn MD PGY2 Neurology Associated attestation - Humberto Echeverria MD - 01/04/2022 1:55 PM CDT Reviewed history, examined the patient, agree with documented resident notes with the exceptions that are indicated below. I have formulated the diagnosis and plan of management. Please see resident note for details Signed Electronically Humberto Payan MD Furniture Fabricator of Neurology, * Ema Oliveiragabrielle - 01/04/2022 10:16 AM CDT SW reviewed Pt's chart. Pt needs updated PT/OT notes for insurance authorization. SW spoke to Pt's sister who confirmed preferred post acute facility. Ofe Hilliard Sister [phone] ?? [phone] Preference is [facility] due to [place] Managed Medicaid payor. ASHWIN notified PAULINA Jacome Liaison. CLARITA Rico, PRACHI Public Relations Specialist [phone] 01/04/2022 10:17 AM * Marcella Calderon, PLANT GENERAL MANAGER - 01/04/2022 10:00 AM CDT [facility] Physical Medicine and Rehabilitation Swallow Treatment Patient: Bi Tabor Med Record Number: [id number] Date of : 1960 Age: [age] year old PPE: PPE worn by staff: mask - N95;gloves PPE worn by patient: gown - patient, clean Impressions: Pt with improved mental status and overall swallow function this date, however suspectcontinued mild oropharyngeal dysphagia given prolonged mastication of solids, anterior spillage across consistencies and a questionable delay in pharyngeal swallow onset across consistencies. Recommend advancing Pt's diet to Easy to Chew/Mechanical Soft with continued thin liquids at this time. SLPwill plan to follow up to ensure tolerance of recommended diet upgrade prior to d/c. Recommendations: Diet Liquids Recommendation: Thin/ Thin (0) Diet Solids Recommendation: Mechanical Soft/Easy to Chew (EC7) Recommended Form of Meds: Whole;With liquid;As Tolerated Compensatory Swallowing Strategies: 90 Degrees elevation for all oral intake;Periodic supervision with meals;Alternate solids and liquids;Small bites/sips;Eat/Feed slowly Recommended Tests/Consults: Recommendations: Dysphagia Treatment Discharge Recommendations: Do not anticipate PLANT GENERAL MANAGER needs at d/c Speech therapy is recommended to improve swallow function. SUBJECTIVE: Patient Goals:To eat/drink Pain Assessment: Pain Rating Score #: 0 Follow-up for pain: No follow-up for pain indicated and patient agreed to proceed with treatment OBJECTIVE: Level of Consciousness: alert Orientation Level: oriented x 4 Positioning: Upright in bed Respiratory Status: room air Swallow Trials: Thin Liquid: Presentation: Straw-Self Fed Oral: Within Functional Limits Pharyngeal: Delayed Swallow;Decreased Laryngeal Elevation Puree: Presentation: Spoon-Self Fed Oral: Spillage Left;Spillage Right Pharyngeal: Delayed Swallow;Decreased Laryngeal Elevation Solid: Presentation: Self-Fed Oral: Increased Anterior to Posterior Transit Pharyngeal: Delayed Swallow;Decreased Laryngeal Elevation Assessment: Risk For Aspiration: Mild Primary Diagnostic Impression - Oral: Mild Primary Diagnostic Impression - Pharyngeal: Mild Treatment/Education/Interventions: While performing PLANT GENERAL MANAGER, Pt was educated regarding recommended PO diet and aspiration precautions to follow during oral intake Patient demonstrated Fair understanding of instructions given. INFORMED CONSENT TO TREATMENT: Plan of care including recommended therapy, goals and frequency, discussed with patient who understands and agrees to proceed. Short Term Goals Patient to demonstrate no clinical signs/symptoms of aspiration or difficulty swallowing with recommended diet. Filling Separator Goal (s): Patient to be independent/baseline with functional mobility and self care and be able to safely discharge to prior level of care. Plan: Ongoing PLANT GENERAL MANAGER follow up for dysphagia management. Marcella Scherer M.S., [facility]-PLANT GENERAL MANAGER Speech Language Pathologist [phone] * Duy Alejo RN - 01/03/2022 10:51 PM CDT Problem: Pain/Discomfort Goal: Patient exhibits [...] in the flowsheet documentation) Outcome: Progressing Problem: Seizures Goal: Seizures are under control or absent Outcome: Progressing Problem: SEIZURE EVENT MONITORING Goal: To record an episode to determine whether or not the episode is a seizure. Outcome: Progressing Problem: General Goal: STG-Patient will Description: Complete BSC transfer moderate assist Outcome: Progressing Problem: Balance Goal: LTG - Patient will maintain balance to allow for safe mobility Outcome: Progressing Problem: Nutrient: Malnutrition Goal: Total intake will meet estimated nutrient needs Outcome: Progressing Problem: Safety related to restraint use Goal: Absence of injury while restrained Outcome: Progressing Problem: Swallowing Goal: STG - Patient will tolerate recommended food and liquid consistencies without clinical signs and symptoms of aspiration Outcome: Progressing Goal: STG - Patient will follow recommended swallowing strategies Outcome: Progressing * Merly Jane MD - 01/03/2022 12:15 PM CDT MICU Progress Note 01/03/2022 12:16 PM Patient: Bi Tabor (:1960) Room: [facility] Admit Date: 12/21/2021. Hospital Day: 8 CC: seizures Hospital Course: Bi Tabor??is 61 year old??male??with history of alcohol use disorder (resolved 2015), CVA (02/2015), HTN, HLD, prior head injury, cervical osteoarthritis, anxiety, Alzheimer's (early onset) and refractory epilespy??admitted to the EMU on 12/21/2021 continuous video EEG monitoring for medication adjustment for his refractory epilepsy. Of note, patient started having seizures in his 30s, after atraumatic brain injury. Has had two seizure types, brief staring events and generalized convulsive events. Per chart review, he has not been compliant with his seizure medications, but he still had br eakthrough seizures, even when had good compliance. While in the EMU, patient continued to have multiple seizures, despite no medication tapering. Multiple areas of cortical irritability were noted, most prominently from the right posterior quadrant. Patient was set for discharge per neuro, but given the number of seizures per day, family did not feel comfortable with discharging him. On 12/29/21, a code stroke was noted, when nursing noted left sided weakness, but workup was negative. He also started having 5-6 seizures an hour, and also had focal seizures that lasted >10 mins, which were aborted with Ativan, but continued to have 2 more episodes. On 12/30, nursing staff communicated their concerns about taking care of the patient on the [facility], given the number of seizures per day. He was transferred to the ICU for closer monitoring. While in the ICU, patient continued to have >10 partial seizures/hr (mostly left arm and left lip twitching) with no significant hemodynamic compromise. Versed was added by the ICU team as a PRN for seizures. Patient continued to have 10-12 seizures an hour. He finished a 5 day course of Methylprednisolone 1000mg qdaily, and Clobazam was also added to his medications. Although patient appearedsomnolent, he was not intubated and appeared to be protecting his airway. Interval History: No acute events overnight. Versed was discontinued yesterday. Has not had an increased frequency inseizures. This AM, reports feeling pain in his legs, arms. Denies any chest pain, SOB, nausea, vomiting. Objective: Vitals: 01/03/22 0900 01/03/22 1000 01/03/22 1100 01/03/22 1200 BP: 113/73 125/77 125/76 112/65 Pulse: 70 70 67 67 Resp: 14 11 (!) 7 28 Temp: 98.7 ??F (37.1 ??C) 98.8 ??F (37.1 ??C) SpO2: 99% 100% 100% 100% Weight: Height: Date 01/03/22 0700 - 01/04/22 0659 Shift 1455-6887 3169-6055 [id number] 24 Hour Total INTAKE Tube 200 200 Shift Total 200 200 OUTPUT Urine 200 200 Shift Total 200 200 NET 0 0 Physical Exam General - awake, answering questions HEENT - NC/AT, EOMI, clear conjunctivae, throat [...] affect Labs: CBC: Recent Labs Component Name 01/03/2233701/02/2234501/01/22348 WBC 8.9 11.7* 14.3* HGB 13.5 14.9 13.5 HCT 40.0 44.1 40.9 BMP: Recent Labs Component Name 01/03/22 03301/02/2234501/01/22 034 NA 146* 145 143 CL 107 105 107 CO2 28 29 29 BUN 22 20 20 CREATININE 0.64* 0.71 0.79 CALCIUM 8.7 9.3 8.9 PHOS 2.7* 2.2* 2.6* Micro: Reviewed. Imaging: Reviewed. Assessment: Present on Admission: ??? Seizure ??? Epilepsy, unspecified, not intractable, without status epilepticus ??? Alzheimer's disease with early onset ??? Status epilepticus ??? Difficulty in walking, not elsewhere classified ??? Acute encephalopathy ??? History of CVA (cerebrovascular accident) ??? Hemiplegia and 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-dominant side Epilepsy, unspecified, not intractable, without status epilepticus POA: Yes Difficulty in walking, not elsewhere classified POA: Yes Alzheimer's disease with early onset POA: Yes Hemiplegia and 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- dominant side POA: Yes History of CVA (cerebrovascular accident) POA: Yes Seizure POA: Yes Status epilepticus POA: Yes Acute encephalopathy POA: Yes PLAN: Neurological: #Refractory epilepsy -Continued to have several seizures, despite not being off of his home meds, while admitted in the EMU. Was admitted to MICU for further monitoring -S/p 5 day course of Methylprednisolone 1000mg -Versed PRNs discontinued on 01/02/22 PLAN -Continue Clobazam 10mg BID, Vimpat 200mg BID, Keppra 2000mg 12 hrs, Valproic acid 500mg q6hrs -cEEG -Neurology following, appreciate recs #Hx of CVA -Continue home aspirin Cardiovascular: #HTN -Continue home Amlodipine 5mg #HLD -Continue home Atorvastatin 40mg Pulmonary: No active treatment GI: No active treatment Renal: #BPH -Continue tamsulosin 0.4mg Endocrine: -BGM goal 140-180 mg/dL ID: #Leukocytosis (resolved) No active treatment Heme/Onc: No active treatment FEN: -Monitor electrolytes QD, Replace K<4, Mg<2, Phos<3 Lines: Type: PIVs, Dobhoff Prophylaxis: Aspiration precautions w/ HOB elevation by 30 degrees GI prophyalxis: none DVT prophyalxis w/ lovenox Diet: TF Activity: As tolerated Disposition: ICU Monitoring Code Status: FULL Merly Jane MD Associated attestation - Juan Diego Garcia MD - 01/03/2022 3:52 PM CDT I have seen, examined and discussed the patient with the resident and I agree with the the findingsand plan of care/recommendations as documented by the resident. Date of service: 01/03/2022 Juan Diego Garcia M.D. Side Splitter of Internal Medicine Division of Pulmonary, Critical Care and Sleep Medicine [facility] * Cami Coughlin, JOSIAS - 01/03/2022 9:58 AM CDT [facility] Physical Medicine and Rehabilitation Bedside Swallow Assessment Patient: Bi [facility]abor [facility] Record Number: [id number] Date of : 1960 Age: [age] year old Patient Active Problem List: Seizure Cerebrovascular accident Hyperlipidemia Hypertension Insomnia Low back pain Osteoporosis Truncal ataxia Therapeutic procedure Seizures Alcohol abuse, uncomplicated Benign neoplasm of prostate Epilepsy, unspecified, not intractable, without status epilepticus Difficulty in walking, not elsewhere classified Muscle weakness (generalized) Other specified rheumatoid arthritis, unspecified site Syncope and collapse Alzheimer's disease with early onset Cognitive communication deficit COVID-19 Dysphagia, oropharyngeal phase 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 CVA (cerebral vascular accident) ??? HTN (hypertension) ??? Seizure In addition to the 1:1 evaluation of the patient, additional eval time was spent completing the chart review prior to the assessment, completing the multidisciplinary plan of care and education plan post evaluation and communicating results of the eval to other treatment team members. PPE: PPE worn by staff: gloves;mask - N95 Impressions: Clinical signs of suspected mild oropharyngeal dysphagia. Patient presented with trials of ice chips, thin liquids, puree, and soft solid consistencies. No overt signs of aspiration observed with all PO intake. However, decreased safety with solids noted, suspect related to AMS/lethary. Temporary solid modification appears indicated. Recommend Soft & Bite Sized (6)/Advanced Soft (DYS3) solids and thin liquids with medications crushed or via feeding tube. PLANT GENERAL MANAGER will continue to follow. Recommendations: Diet Liquids Recommendation: Thin/ Thin (0) Diet Solids Recommendation: Advanced Soft Dys 3/Soft & Bite Sized (6) Recommended Form of Meds: Crushed;With puree Compensatory Swallowing Strategies: 90 Degrees elevation for all oral intake;One to one assist withmeals;Alternate solids and liquids;No straws;Small bites/sips;Eat/Feed slowly Recommended Tests/Consults: Recommendations: Dysphagia Treatment Discharge Recommendations: Deferred Speech therapy is recommended to improve swallow function. SUBJECTIVE: Patient Goals: eat and drink Pain Assessment: Pain Rating Score #: (none stated) Follow-up for pain: No follow-up for pain indicated and patient agreed to proceed with treatment OBJECTIVE: Level of Consciousness: drowsy Orientation Level: oriented to person, oriented to place Positioning: Seated in a chair Respiratory Status: room air Oral/Motor: Dentition: Poor Oral Hygiene : Xerostomic (dry mouth);Tongue coating Labial/Facial: Impaired (incomplete seal, bolus escape) Tongue: Impaired (restricted ROM) Vocal Quality: Within Functional Limits Velopharyngeal Status: Within Functional Limits Oral Motor Coordination: Within Functional Limits (some incoordination, but overall functional) Controls Secretions: Yes Swallow Trials: Ice chips: Presentation: Spoon-Assisted Oral: Increased Anterior to Posterior Transit;Impaired Mastication Pharyngeal: Delayed Swallow Thin Liquid: Presentation: Cup-Assisted;Spoon-Assisted Oral: Delayed Initiation Pharyngeal: Within Functional LImits Puree: Presentation: Spoon-Assisted Oral: Within Functional Limits Pharyngeal: Delayed Swallow Solid: Presentation: Assisted Oral: Impaired Mastication;Increased Anterior to Posterior Transit Pharyngeal: Delayed Swallow Assessment: Risk For Aspiration: Mild Primary Diagnostic Impression - Oral: Mild Primary Diagnostic Impression - Pharyngeal: Mild Education/Interventions: While performing PLANT GENERAL MANAGER, Patient was instructed in: results of evaluation Patient demonstrated Questionable understanding of instructions given. INFORMED CONSENT TO TREATMENT: Plan of care including recommended therapy, goals and frequency, discussed with patient who understands and agrees to proceed. Short Term Goals Patient to demonstrate no clinical signs/symptoms of aspiration or difficulty swallowing with recommended diet. Ongoing Filling Separator Goal (s): Patient to discharge to appropriate next level of inpatient care. Plan: dysphagia treatment Thank you, Cami GARCIA, [facility]-PLANT GENERAL MANAGER Speech Language Pathologist * Dmitriy Richardson - 01/03/2022 7:11 AM CDT General Neurology Progress Note Bi Tabor Age: [age] year old Date of : 1960 Date of Admission: 12/21/2021 Hospital Day: 13 Subjective Brief HPI: Patient is a 61 yr old male with PMH of refractory epilepsy, prior CVA, HTN, HLD, cervical OA, and Alzheimer's presented to [facility] initially for cEEG for AED adjustments on 12/21 and admitted to ICU after code stroke??activated??on 12/29??for L sided weakness??and frequent seizures since admission. Patient has been compliant with home AED. ?? 12/25 Patient had frequent seizures that required Ativan. 12/29 Code stroke activated after L sided weakness; patient witnessed to have 5-6 focal seizures per hour. 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 Patient loaded with Keppra and VPA. 12/30 Patient??had??focal seizures that lasted??>10 min; nursing reported multiple seizures per minute. Patient desat to 70-80s and required NRB during seizure episodes.?? 01/01 Decreased frequency of seizure observed, less UE movement during episodes and mostly face twitching towards left side. Improved mental status AOx4. Interval History: NAEON. No Versed administered overnight. Last dose at 0411 on 01/02. Per nursing, minimal clinical seizures were observed. Objective Patient Vitals for the past 24 hrs: BP Temp Temp src Pulse Resp SpO2 Weight 01/03/22 0600 124/71 -- -- 61 11 100 % -- 01/03/22 0522 130/83 -- -- 61 10 100 % -- 01/03/22 0500 -- -- -- 64 10 100 % -- 01/03/22 0400 123/69 -- -- 62 12 100 % -- 01/03/22 0343 -- 97.2 ??F (36.2 ??C) Axillary -- -- -- -- 01/03/22 0300 133/78 -- -- 60 14 95 % 139 lb 5.3 oz 01/03/22 0200 127/72 -- -- 62 10 100 % -- 01/03/22 0100 124/77 -- -- 59 21 100 % -- 01/03/22 0000 139/82 -- -- 64 19 99 % -- 01/02/22 2339 -- 97.9 ??F (36.6 ??C) Axillary 61 12 100 % -- 01/02/22 2300 127/78 -- -- 63 11 98 % -- 01/02/22 2230 139/79 -- -- 62 12 97 % -- 01/02/22 2200 (!) 136/100 -- -- 65 16 95 % -- 01/02/22 2130 150/73 -- -- 66 16 97 % -- 01/02/22 2100 118/74 -- -- 68 11 97 % -- 01/02/222029 140/85 -- -- 63 14 97 % -- 01/02/222026 153/88 -- -- -- -- -- -- 01/02/221999 153/88 -- -- 58 9 96 % -- 01/02/221942 -- 98 ??F (36.7 ??C) Axillary 53 (!) 7 97 % -- 01/02/22 1930 146/82 -- -- 59 21 96 % -- 01/02/22 1900 150/81 -- -- 53 15 97 % -- 01/02/22 1830 148/83 -- -- 57 11 98 % -- 01/02/22 1800 134/76 98.7 ??F (37.1 ??C) Oral 57 10 97 % -- 01/02/22 1700 137/92 -- -- 62 10 97 % -- 01/02/22 1600 131/77 98.2 ??F (36.8 ??C) Oral 62 10 98 % -- 01/02/22 1500 133/76 -- -- 73 27 97 % -- 01/02/22 1400 131/76 98.6 ??F (37 ??C) Oral 69 12 98 % -- 01/02/22 1300 107/80 -- -- 73 14 97 % -- 01/02/22 1200 113/81 98.7 ??F (37.1 ??C) Oral 82 16 100 % -- 01/02/22 1100 133/77 -- -- 62 12 99 % -- 01/02/22 1000 153/86 98.7 ??F (37.1 ??C) Oral 61 10 95 % -- 01/02/22 0900 130/73 -- -- 58 11 92 % -- 01/02/22 0800 153/85 98.7 ??F (37.1 ??C) Oral 53 10 95 % -- Intake/Output Summary (Last 24 hours) at 01/03/2022 0711 Last data filed at 01/03/2022 0540 Gross per 24 hour Intake 931 ml Output 1790 ml Net -859 ml Exam: Cortical Function Mental Status Awake, alert, opens eyes spontaneously Orientation Person, place; thinks year is 2019 and he's in hospital for wires Language Fluency intact, comprehension intact Cranial Nerves II Pupils 3 mm and bilaterally reactive to light. Fundoscopic exam not performed. VIII Hearing is intact bilaterally to conversation III/IV/ Unable to track finger movement with EOM on command IX/X Palate elevated symmetrically without phonation abnormalities noted. V Not examined. XI Head turning and shoulder shrug are intact. VII No facial palsy noted; unable to lift eyebrow and smile on command XII Unable to stick out tongue on command Motor Function Movement No abnormalities noted Bulk No abnormalities noted Tone Increased tone on BUE and BLE Proximal Upper Proximal Lower Right 5/5 4/5 Left 4/5 4/5 Muscle Stretch Reflexes BI PAT TOES Right 3 2 mute Left 3 2 mute Sensory Light Touch Symmetric and intact bilaterally Cerebellar Deferred Gait Deferred Labs: Recent Labs Component Name 01/03/2233701/02/2234501/01/22 034 WBC 8.9 11.7* 14.3* RBC 4.26* 4.70 4.29* HGB 13.5 14.9 13.5 HCT 40.0 44.1 40.9 Recent Labs Component Name 01/03/22 0338 01/02/22 0346 01/01/22 034 NA 146* 145 143 CL 107 105 107 CO2 28 29 29 BUN 22 20 20 CREATININE 0.64* 0.71 0.79 CALCIUM 8.7 9.3 8.9 No results for input(s): MG in the last 36937 hours. Recent Labs Component Name 01/03/22 0338 01/02/22 0346 01/01/22 0349 PHOS 2.7* 2.2* 2.6* Recent Labs Component Name 02/25/21 1134 07/18/19 1139 04/11/15 0622 PT 13.5 12.9 12.1 INR 1.1 1.0 0.9 No results for input(s): A1C in the last 71044 hours. Recent Labs Component Name 04/11/15 0622 CHOL 196 HDL 81 LDLCALC 102* TRIG 63 Recent Labs Component Name 05/15/19 1652 TSH 1.344 Recent Labs Component Name 12/31/21 0412 02/25/21 1459 02/25/21 1134 05/15/19 0911 05/13/19 2030 01/24/19 0154 CKTOTAL 77 - - 63 - 127 TROPONINI - 0.012 0.021 <0.010 - - - = values in this interval not displayed. EEG 01/01 0500 - 01/02 0500 Seizures on EEG lacked a definite clinical correlate on video review. IMPRESSION This is an abnormal epilepsy monitoring recording due to 1) frequent, but improving electro-clinical focal seizures 2) right hemispheric slowing CLINICAL CORRELATION: These findings indicate an acute ongoing, but improving focal epileptic process arising from the right parietal region broadly. Imaging: CTA BRAIN AND NECK 12/29/2021?? IMPRESSION: 1.The dural venous sinuses are not [...] AVM, or new acute large vessel occlusion. ?? CT BRAIN 12/29/2021?? IMPRESSION: 1.No acute intracranial process. 2.Old infarcts and senescent changes are stable compared to the brain CT from 05/01/2021. Assessment Patient is a 61 year old male with Hx of refractory epilepsy, prior CVA, HTN, HLD, and Alzheimer's disease admitted to ICU for frequent focal seizures not controlled by current home AED regimen. No clear etiology for worsening of seizure burden.??Imaging showed no recent changes and stroke w/u was negative. EEG showed acute ongoing focal epileptic process arising from R parietal region that is . Patient is currently receiving Keppra 2g q12hr, VPA 500 mg q6hr, lacosamide 200 mg QD, methylprednisone 1000mg QD??x??5d (EOT 01/01), Clobazam 10 mg BID. PRN versed has been discontinued to assess for possible transfer to floor from ICU. Plan - Continue cEEG monitoring - Continue Clobazam 10 mg BID, lacosamide 200 mg BID, Keppra 2g BID, VPA 500 mg q6h - Speech therapy eval for swallowing - Ok to transfer to floor Case findings discussed with Dr. Raymundo, Attending physician. Dmitriy Richardson, MS3 General Neurology * Suzan Hope MD - 01/03/2022 7:05 AM CDT General Neurology Progress Note Patient: iB Tabor Room: 305 Age: [age] year old Hospital Course: 61yo M with PMH including alcohol abuse (resolved 2015), CVA (02/2015), HTN, HLD, prior head injury(from a fall?), cervical osteoarthritis, anxiety, Alzheimer's (early onset) and refractory epilepsy(reported onset, two weeks after his head injury), who presented to [facility] for continuous video EEG monitoring for medication adjustment and to quantify seizure burden.?? Frequent seizures (>7/hour) during first few days of admission. Frequency was stable but intensity of seizures continued to worsen. Code stroke activated on 12/29/2021 for left sided weakness but stroke workup was negative. Due to concerns from nursing staff after frequent seizures, patient was transferred to MICU on 12/30/2021 for close seizure monitoring. Patient is s/p methylprednisolone 1g qdaily x 5 days. Home meds lacosamide, keppra and valproic acid were continued. Clobazam was added given effective response to prn intravenous benzodiazepines. Interval history: No PRN versed required overnight. Phosphorus repleted overnight. Objective: BP 124/71 Pulse 61 Temp 97.2 ??F (36.2 ??C) (Axillary) Resp 11 Ht 5' 11 (1.803 m) Wt 139lb 5.3 oz (63.2 kg) SpO2 100% Temp (30hrs) Max:98.7 ??F (37.1 ??C) Body mass index is 19.43 kg/m??. Neurologic examination: Awake, no apparent distress Answers name appropriately, date as 'December 2021,' place as '[facility],' city as [facility]' Moves all extremities spontaneously (4-/5 in left arm and leg) Sensation to light touch intact in all extremities Hyperreflexia throughout, mute plantars Assessment and Plan: 61yo M who presented for scheduled EMU admission to quantify seizure burden +/- medication adjustment. Frequent seizures and worsening intensity during admission requiring ICU admission, 5-day intravenous steroid course and addition of clobazam. Patient has responded to clobazam, seizure intensity and frequency continuing to improve. - continue cEEG monitoring + seizure precautions - maintain Mg>2, Phos>4 - speech evaluation pending. If passes, okay to remove Dobhoff - anti-seizure regimen: keppra 2g bid, lacosamide 200mg bid, valproic acid 500mg q6h, clobazam 10mgbid - seizure rescue plan: IV versed 2mg q5min prn (for seizure 5 minutes or longer) - order PT/OT - okay to transfer to floor once off versed prns x24 hours Plan discussed with neurology attending, Dr. Raymundo. Please contact with questions/concerns. Suzan Hope MD Neurology, PGY-4 Associated attestation - Sean Raymundo DO - 01/04/2022 9:14 AM CDT Patient seen and examined on 01/03/2022. I agree with the findings and plan as outlined in the trainee note. * Marycarmen Hood RN - 01/03/2022 5:04 AM CDT Pt remains A&O x4 MARADIAGA follows commands, appeared to have minimal seizures throughout the night;NSR 60s-70s SBP 120-150s; room air lungs are clear; voiding per condom cath good UOP; afebrile. * Merly Jane MD - 01/02/2022 2:57 PM CDT MICU Progress Note 01/02/2022 2:57 PM Patient: Bi Tabor (:1960) Room: [facility] Admit Date: 12/21/2021. Hospital Day: 7 CC: seizures Hospital Course: Bi Tabor??is 61 year old??male??with history of alcohol use disorder (resolved 2015), CVA (02/2015), HTN, HLD, prior head injury, cervical osteoarthritis, anxiety, Alzheimer's (early onset) and refractory epilespy??admitted to the EMU on 12/21/2021 continuous video EEG monitoring for medication adjustment for his refractory epilepsy. Of note, patient started having seizures in his 30s, after atraumatic brain injury. Has had two seizure types, brief staring events and generalized convulsive events. Per chart review, he has not been compliant with his seizure medications, but he still had br eakthrough seizures, even when had good compliance. While in the EMU, patient continued to have multiple seizures, despite no medication tapering. Multiple areas of cortical irritability were noted, most prominently from the right posterior quadrant. Patient was set for discharge per neuro, but given the number of seizures per day, family did not feel comfortable with discharging him. On 12/29/21, a code stroke was noted, when nursing noted left sided weakness, but workup was negative. He also started having 5-6 seizures an hour, and also had focal seizures that lasted >10 mins, which were aborted with Ativan, but continued to have 2 more episodes. On 12/30, nursing staff communicated their concerns about taking care of the patient on the [facility], given the number of seizures per day. He was transferred to the ICU for closer monitoring. While in the ICU, patient continued to have >10 partial seizures/hr (mostly left arm and left lip twitching) with no significant hemodynamic compromise. Versed was added by the ICU team as a PRN for seizures. Patient continued to have 10-12 seizures an hour. He finished a 5 day course of Methylprednisolone 1000mg qdaily, and Clobazam was also added to his medications. Although patient appearedsomnolent, he was not intubated and appeared to be protecting his airway. Interval History: Patient required Versed pushes x2 yesterday and 1x overnight. This AM, he was answering questions appropriately. Denied any pain, SOB, nausea, vomiting. Objective: Vitals: 01/02/22 1100 01/02/22 1200 01/02/22 1300 01/02/22 1400 BP: 133/77 113/81 107/80 131/76 Pulse: 62 82 73 69 Resp: 12 16 14 12 Temp: 98.7 ??F (37.1 ??C) 98.6 ??F (37 ??C) SpO2: 99% 100% 97% 98% Weight: Height: Date 01/02/22 0700 - 01/03/22 0659 Shift 8423-7026 5774-2383 5042-1410 24 Hour Total INTAKE Tube 200 200 Shift Total 200 200 OUTPUT Urine 600 600 Shift Total 600 600 NET -400 -400 Physical Exam General - awake, answering questions HEENT - NC/AT, EOMI, clear conjunctivae, throat [...] affect Labs: CBC: Recent Labs Component Name 01/02/22 03401/01/22 0349 12/31/21 0412 WBC 11.7* 14.3* 14.3* HGB 14.9 13.5 13.3 HCT 44.1 40.9 40.4 BMP: Recent Labs Component Name 01/02/22 03401/01/22 0349 12/31/21 0504 12/31/21 0412 NA 145 143 143 - CL 105 107 111* - CO2 29 29 20* - BUN 20 20 18 - CREATININE 0.71 0.79 0.66* - CALCIUM 9.3 8.9 8.0* - PHOS 2.2* 2.6* - 2.6* Micro: Reviewed. Imaging: Reviewed. Assessment: Present on Admission: ??? Seizure ??? Epilepsy, unspecified, not intractable, without status epilepticus ??? Alzheimer's disease with early onset ??? Status epilepticus ??? Difficulty in walking, not elsewhere classified ??? Acute encephalopathy ??? History of CVA (cerebrovascular accident) ??? Hemiplegia and 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-dominant side Epilepsy, unspecified, not intractable, without status epilepticus POA: Yes Difficulty in walking, not elsewhere classified POA: Yes Alzheimer's disease with early onset POA: Yes Hemiplegia and 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- dominant side POA: Yes History of CVA (cerebrovascular accident) POA: Yes Seizure POA: Yes Status epilepticus POA: Yes Acute encephalopathy POA: Yes PLAN: Neurological: #Refractory epilepsy -Continued to have several seizures, despite not being off of his home meds, while admitted in the EMU. Was admitted to MICU for further monitoring -S/p 5 day course of Methylprednisolone 1000mg PLAN -Continue Clobazam 10mg BID, Vimpat 200mg BID, Keppra 2000mg 12 hrs, Valproic acid 500mg q6hrs -Neurology following, appreciate recs #Hx of CVA -Continue home aspirin Cardiovascular: #HTN -Continue home Amlodipine 5mg #HLD -Continue home Atorvastatin 40m Pulmonary: No active treatment GI: No active treatment Renal: #BPH -Continue tamsulosin 0.4mg Endocrine: -BGM goal 140-180 mg/dL ID: #Leukocytosis (resolved) No active treatment Heme/Onc: No active treatment FEN: -Monitor electrolytes QD, Replace K<4, Mg<2, Phos<3 Lines: Type: PIVs, Dobhoff Prophylaxis: Aspiration precautions w/ HOB elevation by 30 degrees GI prophyalxis: none DVT prophyalxis w/ lovenox Diet: TF Activity: As tolerated Disposition: ICU Monitoring Code Status: FULL Merly Jane MD Associated attestation - Juan Diego Garcia MD - 01/02/2022 9:22 PM CDT I have seen, examined and discussed the patient with the fellow and I agree with the the findings and plan of care/recommendations as documented by the fellow. Date of service: 01/02/2022 Juan Diego Garcia M.D. [facility] Division of Pulmonary, Critical Care and Sleep Medicine [facility] * Jase Richmond MD - 01/02/2022 8:24 AM CDT Neurology Progress Note Patient: Bi Tabor Room: 305 Age: [age] year old Subjective: Overnight: Patient has clinical seizure (left face twitching and left arm shaking lasting 20-30s) 7-10 times per hour, less frequent than the day before. Received 2mg Versed twice overnight. Oxygen saturation decreased to 80s during seizure. Clobazam was started yesterday. On methylprednisolone 5/5 days today. HPI: Bi Tabor is a 61 year old male with PMH including alcohol abuse (resolved 2015), CVA (02/2015),HTN, HLD, prior head injury (from a fall?), cervical osteoarthritis, anxiety, Alzheimer's (early onset) and refractory epilepsy (reported onset, two weeks after his head injury), who presented to [facility] continuous video EEG monitoring for medication adjustment and to quantify seizure burden.?? Patient had continued frequent seizures since admission. Code stroke atactivated on 12/29/2021 for left sided weakness but stroke workup was negative. Due to concerns from nursing staff after frequent seizures, patient was transferred to MICU on 12/30/2021 for close seizure monitoring. Interval history: Per RN, patient had an episode of jaw clenching last night for which he received a dose of Versed 2mg at 0400. This morning he is awake, following commands. Objective: BP 154/82 Pulse 64 Temp 97.5 ??F (36.4 ??C) (Axillary) Resp 10 Ht 5' 11 Wt 142 lb 3.2 oz SpO2 97% Temp (30hrs) Max:98.1 ??F (36.7 ??C) Body mass index is 19.83 kg/m??. Neurologic examination: Patient is more awake. A&O X4. Open eyes spontaneously. Follows with all 4 extremities. Strength is 4+/5 in right arm and leg and is 4-/5 in left arm and leg. Sensations appear symmetric bilaterally. Hyperreflexia on all four, bibinski is mute. Assessment and Plan: Bi Tabor is a 61 year old male with PMH including alcohol abuse (resolved 2015), CVA (02/2015),HTN, HLD, prior head injury (from a fall?), cervical osteoarthritis, anxiety, Alzheimer's (early onset) and refractory epilepsy (reported onset, two weeks after his head injury), who presented to [facility] continuous video EEG monitoring for medication adjustment and to quantify seizure burden.?? Patient had continued frequent seizures since admission. Code stroke atactivated on 12/29/2021 for left sided weakness but stroke workup was negative. Due to concerns from nursing staff after frequent seizures, patient was transferred to MICU on 12/30/2021 for close seizure monitoring. cEEG reported as abnormal due to frequent electro-clinical focal seizures and right hemispheric slowing. These findings indicate an acute ongoing focal epileptic process arising from the right parietal region broadly. - Continue cEEG monitoring and seizure precautions - Status post Methylprednisolone 1000mg today to achieve 5 days treatment - Continue Clobazam 10mg BID PO. - Please reorder speech therapy eval for swallow evaluation. Patient is likely to have breakthroughseizures which shouldn't hold swallow evaluation. - Continue Lacosamide 200mg BID and Keppra 2g BID - Continue??Valproic acid 500 mg q6h (Total 2000 mg daily)?? - Versed 2mg IV q5min PRN - Ok to transfer to floor once he is off of Versed pushes for 24 hours. Discussed Assessment and Plan with Attending Physician, Dr. Raymundo. Jase Richmond MD PGY - 4 Neurology Resident. Associated attestation - Sean Raymundo DO - 01/02/2022 9:42 PM CDT Patient seen and examined on 01/02/2022. I agree with the findings and plan as outlined in the trainee note. Patient improving seizure control and alertness. Swallow eval when able. Transfer to floor likely today vs tomorrow. Remove DHT if able to swallow. ADAT and therapy when able. * Marycarmen Hood, ALFRED - 01/02/2022 5:03 AM CDT Pt A&O x4 majority of the night, was confused around midnight about place/situation, MARADIAGA follows commands at times, delayed response, appeared to have less seizure activity this shift, prn versedx1, PERRLA 3; HR NSR- sinus javed, SBP 130-140s; tolerating TF min residuals, BM x2, voiding per condom cath, good UOP; afebrile; pt states he's feeling better * Sean Raymundo DO - 01/01/2022 10:59 PM CDT Neurology Progress Note ?? Patient: Bi Tabor Room: [facility] Age: [age] year old ?? Subjective: Patient with continued seizures overnight requiring intermittent benzodiazepine dosing. DHT cloggedpreventing clobazam yesterday ?? Objective: BP 138/78 Pulse 63 Temp 97.9 ??F (36.6 ??C) (Axillary) Resp 10 Ht 5' 11 (1.803 m) Wt 143lb 8.3 oz (65.1 kg) SpO2 97% Neurologic examination: Patient alerting voice. Follows commands with right hand. Will follow to voice. ?? Assessment and Plan: Bi Tabor is a 61 year old man with frequent focal seizures. No clear etiology for the worseningof his home control Admitted for quantification of seizure burden. No reduction of medications doneinpatient. Seizures worsened over the week to multiple per hour. Due to frequency and intensity of seizures and requirement for frequent benzodiazepines and subsequent sedation patient was transferred to ICU. - Continue cEEG monitoring and seizure precautions - Continue Methylprednisolone 1000mg IV QDaily for total 5 days (today is day 10/01) - Continue Lacosamide 200mg BID and Keppra 2000 mg BID Depakote total daily dose 2000 mg ([id number] mg q6h IV), - Start clobazam 10 mg BID, give extra dose today to build up level to steady state faster - Continue intermittent benzodiazepine dosing to decrease seizure burden - If continued improvement in mental status and decreased need for BZD prn would plan for ST and removal of DHT when able - PT/OT when able I personally spent 35 minutes in the care of this patient. This time was spent reviewing the available records, coordinating the patients care with the inpatient team, and in [id number] time with the patient and his sisters counseling them on the plan for the hospitalization and the possible outcomes of this treatment including possible need for intubation and mechanical ventilation if patient becomes overly sedated. Sean Raymundo DO * Merly Jane MD - 01/01/2022 4:13 PM CDT Family Notification Documentation Contact made: 01/01/2022 4:13 PM Person(s) contacted: Ofe Hilliard (daughter) Method of communication: Phone Duration of discussion: 5 minutes Summary of discussion Called patient's sister and provided updates. Discussed patient was more alert this morning, and that we are planning on giving additional dose of Clobazam. All questions answered at this time. * Giacomo Paulino - 01/01/2022 11:54 AM CDT Neurology Progress Note Patient: Bi Tabor Room: 305 Age: [age] year old Subjective: Overnight: Patient has clinical seizure (left face twitching and left arm shaking lasting 20-30s) 7-10 times per hour, less frequent than the day before. Received 2mg Versed twice overnight. Oxygen saturation decreased to 80s during seizure. Clobazam was started yesterday. On methylprednisolone 5/5 days today. HPI: Bi Tabor is a 61 year old male with PMH including alcohol abuse (resolved 2015), CVA (02/2015),HTN, HLD, prior head injury (from a fall?), cervical osteoarthritis, anxiety, Alzheimer's (early onset) and refractory epilepsy (reported onset, two weeks after his head injury), who presented to [facility] continuous video EEG monitoring for medication adjustment and to quantify seizure burden.?? Patient had continued frequent seizures since admission. Code stroke atactivated on 12/29/2021 for left sided weakness but stroke workup was negative. Due to concerns from nursing staff after frequent seizures, patient was transferred to MICU on 12/30/2021 for close seizure monitoring. Objective: BP 162/81 Pulse 54 Temp 97.8 ??F (36.6 ??C) (Axillary) Resp 12 Ht 5' 11 Wt 143 lb 8.3 oz SpO2 99% Temp (30hrs) Max:98.2 ??F (36.8 ??C) Body mass index is 20.02 kg/m??. Neurologic examination: Patient is more awake than yesterday. A&O X4. Open eyes spontaneously. Follows with all 4 extremities. Grimaces and withdraws all 4 extremities to pain. Hyperreflexia on all four, bibinski is mute. Assessment and Plan: Bi Tabor is a 61 year old male with PMH including alcohol abuse (resolved 2015), CVA (02/2015),HTN, HLD, prior head injury (from a fall?), cervical osteoarthritis, anxiety, Alzheimer's (early onset) and refractory epilepsy (reported onset, two weeks after his head injury), who presented to [facility] continuous video EEG monitoring for medication adjustment and to quantify seizure burden.?? Patient had continued frequent seizures since admission. Code stroke atactivated on 12/29/2021 for left sided weakness but stroke workup was negative. Due to concerns from nursing staff after frequent seizures, patient was transferred to MICU on 12/30/2021 for close seizure monitoring. cEEG reported as abnormal due to frequent electro-clinical focal seizures and right hemispheric slowing. These findings indicate an acute ongoing focal epileptic process arising from the right parietal region broadly. - Continue cEEG monitoring and seizure precautions - Finish Methylprednisolone 1000mg today to achieve 5 days treatment - Continue Clobazam 10mg BID PO. Order additional Clobazam 20mg before night scheduled dose. - please order swallow eval - Continue Lacosamide 200mg BID and Keppra 2g BID - Continue??Valproic acid 500 mg q6h (Total 2000 mg daily)?? - Versed 2mg IV q5min PRN ? Discussed Assessment and Plan with Attending Physician, Dr. Raymundo. Giacomo Paulino MS4 * Elmo Caicedo SLP - 01/01/2022 9:58 AM CDT [facility] Department of Physical Medicine & Rehabilitation Progress Note Patient: Bi Tabor Med Record Number: [id number] Date of : 1960 Age: [age] year old 01/01/22 0900 Therapy on Hold Therapy on Hold New Order Required for Therapy;Chart Reviewed Patient continues to have multiple seizures per hour. Please reorder ST when patient is able to participate. Elmo Ansari M.A., [facility] Speech Language Pathologist [phone] * Mandi Milian RN - 01/01/2022 9:54 AM CDT Tuesday Summary Note Discharge Level of Care: SNF Anticipated Mode of Transportation:EMS Contacts (Name, relationship, phone #): Ofe Hilliard Sister [phone] Amarjit Tabor Brother [phone] Anticipated DC Date: tbd Pending Needs: new therapy notes when pt appropriate, accepting facility, seizure control, NG removal Mandi Milian, ALFRED Phone [phone] 01/01/2022 * James Velasquez - 01/01/2022 8:47 AM CDT MICU Progress Note 01/01/2022 8:47 AM Patient: Bi Tabor (:1960) Room: [facility]/ Admit Date: 12/21/2021. Hospital Day: 6 CC: Refractory epilepsy Hospital Course: Bi Tabor is 61 year old male with history of alcohol use disorder (resolved 2015), CVA, HTN, HLD, prior head injury, cervical osteoarthritis, anxiety, Alzheimer's (early onset) and refractory epilespy admitted to the EMU on 12/21/2021 continuous video EEG monitoring for medication adjustment forhis refractory epilepsy. Patient initially had seizures from a traumatic brain injury [id number] years ago. His seizures have two semiologies, brief staring episodes and generalized convulsive events. On 12/25/21 patient was found to have multiple seizures overnight that required ativan. On 12/26, the seizures continued, but patient was set for discharge per neuro. Family was not comfortable with patient being discharged, so patient remained admitted to the EMU. On 12/29/21 code stroke was called when nursing noticed L sided weakness. Head imaging without new vessel occlusion or stenosis. Has stable L ICA stenosis at 70%. On 12/29/21, he started having 5-6 seizures/hour. After the episodes he was confused, unable to speak, obtunded. Since 5pm on 12/29, he received his scheduled regimen and loading dose of Keppra 3.6 and VPA 1200mg. At 3AM patient started having focal seizures lasting >10min. No changes in vital signs or airway compromise. Neurology gave ativan 3mg, which aborted seizure, but proceeded to have 2 more events. Neurology was notified that nursing was not comfortable caring for this patient, thus requested a transfer to the ICU. ?? Patient was then transferred to MICU for closer seizure monitoring. In the MICU the patient was witnessed having his fourth seizure since arrival, which involved L facial and L UE twitching. He was unresponsive to his name and opens eyes to sternal rub. Neurology has increased depakote level and continued lacosamide and keppra. Methylprednisolone was started for total 3 days. ICU nursing reportedthe patient had been having multiple seizures per minute since being in the ICU. Per neurology, no acute interventions are needed for these seizures. Overnight multiple attempts for dobhoff placementwere made by nursing and night housestaff, which were unsuccessful. Radiology was consulted for assi stance in placing dobhoff tube, which was placed . During the seizures, patient would desaturate tothe 70s-80s. NRB was placed during these episodes. PRN versed was given for the frequency of seizures. Patient continued to have ~8-10 seizures per hour, which decreased to ~1-2 per hour after the versed was given. These lasted from 20 sec to just over 1 minute. Patient had several episodes of desaturations to the 70s during his seizures. Overnight, patient continued to have back-to back seizures. He was given 2mg Versed 4 times overnight. He was also given 4mg Ativan by neurology, which helpedreduce the seizure frequency. His dobhoff stopped flushing due to mild kinking. It was retracted and able to be flushed. Clobazam was added to anti-epileptic regimen. Interval History: No acute events overnight. Patient had been attempting to remove dobhoff, was placed in mittens. Received 3 doses of versed overnight for continued seizures. This morning, patient was alert and oriented x3, following commands and acting appropriately. He stated that he was feeling normal and ready to go home. He then proceeded to have an episode of facial twitching and gaze deviation, where he was not-responsive. Afterward, he appeared confused.This is characteristic of his typical seizures. Nodesaturations noted during this event. Per neurology, seizures have decreased in frequency on EEG. Objective: Vitals: 01/01/22 0530 01/01/22 0600 01/01/22 0630 01/01/22 0700 BP: 158/77 162/83 155/78 145/75 Pulse: 47 49 49 47 Resp: 13 11 13 15 Temp: SpO2: 98% 97% 100% 99% Weight: Height: Intake/Output Summary (Last 24 hours) at 01/01/2022 0847 Last data filed at 01/01/2022 0559 Gross per 24 hour Intake 1184.84 ml Output 300 ml Net 884.84 ml Physical Exam General - NAD, afebrile, non cachectic, EEG electrodes in place. HEENT - NC/AT, EOMI, moist mucous membranes. Neck - Supple, no LAD, no JVD Chest - CTAB no crackles or wheezes bilaterally CV - RRR no murmurs, radial and DP pulses 2+ Abdomen - Soft, NT/ND, +BS Musculoskeletal - Moves all four extremities Extremities - No c/c/e Skin - No rashes, lesions or jaundice Neurologic - A&Ox3. Follows all commands. Non-focal. Facial spasms, rightward eye deviation andleft arm clonic movements observed for ~10 seconds, consistent with his seizures. Psych - Unable to assess. Labs: CBC: Recent Labs Component Name 01/01/22 0349 12/31/21 0412 12/30/21 0119 WBC 14.3* 14.3* 13.1* HGB 13.5 13.3 13.3 HCT 40.9 40.4 39.5 BMP: Recent Labs Component Name 01/01/22 0349 12/31/21 0504 12/31/21 0412 12/30/21 0119 12/29/21 0721 12/27/21 0117 NA 143 143 - 141 - 141 CL 107 111* - 107 - 104 CO2 29 20* - 25 - 22 BUN 20 - - 19 CREATININE 0.79 0.66* - 0.81 - 0.89 CALCIUM 8.9 8.0* - 9.1 - 9.5 PHOS 2.6* - 2.6* - - 2.8 - = values in this interval not displayed. Hepatic: Recent Labs Component Name 12/30/21 0119 12/29/21 0721 12/27/21 0117 ALT 20 27 26 AST 20 25 32 TBILI 0.2 0.4 0.5 PROT 6.0 7.2 6.7 ALB 3.0* 3.4 3.3* ALKPHOS 62 73 74 Coagulation: Recent Labs Component Name 02/25/21 1134 07/18/19 1139 04/11/15 0622 PT 13.5 12.9 12.1 INR 1.1 1.0 0.9 Cardiac Markers: Recent Labs Component Name 12/31/21 0412 02/25/21 1459 02/25/21 1134 05/15/19 0911 05/13/19 2030 01/24/19 0154 CKTOTAL 77 - - 63 - 127 TROPONINI - 0.012 0.021 <0.010 - - - = values in this interval not displayed. ABGs: No results for input(s): PHART, PO2ART, RUJ1JSZ, BEART in the last 85561 hours. Micro: Microbiology Results (Displays last 21 days for this encounter ONLY) No results found for the last 504 hours. Imaging: Imaging reviewed. EEG IMPRESSION This is an abnormal epilepsy monitoring recording due to 1) frequent electro- clinical focal seizures 2) right hemispheric slowing ?? CT Brain Stroke 12/29/21 IMPRESSION: ?? 1.No acute intracranial process. 2.Old infarcts and senescent changes are stable compared to the brain CT from 05/01/2021. ?? CT angio brain neck stroke 01/18/22 IMPRESSION: ?? 1.The dural venous sinuses are not well opacified with contrast and cannot be evaluated. 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 3.70% stenosis of the left ICA origin due to atherosclerotic plaque at the bifurcation is stable. 4.No aneurysm, AVM, or new acute large vessel occlusion. Assessment: Epilepsy, unspecified, not intractable, without status epilepticus POA: Yes Difficulty in walking, not elsewhere classified POA: Yes Alzheimer's disease with early onset POA: Yes Hemiplegia and 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- dominant side POA: Yes History of CVA (cerebrovascular accident) POA: Yes Seizure POA: Yes Status epilepticus POA: Yes Acute encephalopathy POA: Yes PLAN: Neurological: #Refractory Epilepsy #Acute Encephalopathy - Refractory seizures requiring ICU level monitoring, despite increasing anti-epileptics. - CTH without new vessel occlusion and stable stenosis in the left ICA. - EEG showing right hemispheric slowing and frequent electro-clinical focal seizures. - There is concern given frequency of seizures seen clinically. PRN versed started. - Neurology recommended extending steroid duration to 5 total days. And added Clobazam for seizures. - CK level normal. Plan: - Continue 2mg midazolam q5min PRN. -Scheduled regimen: Methylprednisolone 1000mg IV QD (2 more days), Depakote 500 mg q6h (2000mg daily), Locosamide 200mg BID, Keppra 2g BID, clobazm 10mg BID -Continuous EEG monitoring - Appreciate neurology recommendations #Hx of CVA -Home ASA 81mg Cardiovascular: #Hx of HTN - Pressures have been stable. - Home amlodipine 5mg. -MAP goal - 65 mmHg #HLD - Home atorvastatin 40mg. Pulmonary: #Hypoxemia - Patient becomes hypoxemic to ~70% during the seizures. Has been placed on NRB during episodes. - No concern for other pulmonary pathology, as saturations return to >92% after the seizures subside. Plan: - Continue to monitor pulse-ox and telemetry. SpO2 goal - 92% GI: - No acute problems - Pantoprazole for ulcer ppx. - Miralax for bowel regimen. Renal: #BPH - History of BPH. - Home tamsulosin 0.4mg. Endocrine: BGM goal 140-180 mg/dL ID: #Leukocytosis - WBC count bumped to 13.1 from 8.1 the day prior. Decreasing now. - DDx: likely reactive secondary to seizures and steriods vs less likely infectious. - Low suspicion of infection at this time. Plan: - Continue to monitor. Heme/Onc: #Thrombocytopenia - Plts stable. Per chart review, baseline platelet value 70-150 on previous labs. - No acute concerns. No active bleeding. Plan: - Continue to monitor. - Transfuse for Hgb<7, Plt<10. FEN: -Monitor electrolytes QD, Replace K<4, Mg<2, Phos<3 Lines: Type: PIVs , dobhoff Prophylaxis: Aspiration precautions w/ HOB elevation by 30 degrees GI prophyalxis w/ famotidine DVT prophyalxis w/ SCDs, lovenox Diet: Tube feeds Activity: As tolerated Disposition: ICU Monitoring Code Status: Full [employer] [facility] Medical Student, MS4 Associated attestation - Lesley Vargas MD - 01/01/2022 5:07 PM CDT Attending Attestation Note I have verified the documentation of the medical student including all history, exam, and medical decision-making details. I have personally performed a physical exam and have personally reviewed thedata to support my medical decision-making as outlined in the medical student's note, and I arrive i ndependently at the same conclusion. Date of Service: 01/01/2022 Acute Problem List: Epilepsy, unspecified, not intractable, without status epilepticus POA: Yes Difficulty in walking, not elsewhere classified POA: Yes Alzheimer's disease with early onset POA: Yes Hemiplegia and 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- dominant side POA: Yes History of CVA (cerebrovascular accident) POA: Yes Seizure POA: Yes Status epilepticus POA: Yes Acute encephalopathy POA: Yes Plan: - Pt with refractory epilepsy requiring ICU upgrade for close monitoring. Continue current AED regimen with Versed pushes as needed for seizure episodes. Continue scheduled Clobazam 10 mg BID - will consider increasing dose as permitted by patient's LOC. Completing steroid course today. Continue monitoring respiratory status. Remains on continuous EEG. More alert and oriented today, has not required PRN Versed. ICU Checklist: -Feeding: Tube feeds -Analgesia: none -Sedation: Versed, Clobazam -Thromboprophylaxis: lovenox -Head of bed maintained at 30 degrees -Ulcer prophylaxis: protonix -Glycemic control: target 140-180 -SBT: n/a -Bowel regimen: as needed -Indwelling lines: reviewed and removed if appropriate. -De-escalation of antibiotics: none Total Critical Care Time: 35 min - The following organ systems are in failure or are in imminent risk of life threatening deterioration: neurologic - Critical decision making: Highly Complex - I provided this patient with direct intervention & supervision necessary to prevent life threatening deterioration related to patient's presenting illness. - I personally spent critical care time directly and personally managing this patient. My critical care time included obtaining a history; examining the patient; evaluating oxygenation by pulse oximetry and making corresponding changes to oxygen support device settings; evaluating pt's hemodynamic status at frequent intervals and adjusting medications to maintain MAP at target and ensuring good end organ perfusion with re-assessment at regular intervals; ordering and reviewing studies includinglabs and imaging and using these to develop and adjust pt's treatment plan; evaluation of pt's response to treatment; frequent re-assessment; and discussions with consultants Lesley Vargas MD [employer] [facility] Division of Pulmonary, Critical Care, and Sleep Medicine [facility] * Dylan Dmitriy - 01/01/2022 7:29 AM CDT General Neurology Progress Note Bi Tabor Age: [age] year old Date of : 1960 Date of Admission: 12/21/2021 Hospital Day: 11 Subjective Brief HPI: Patient is a 61 yr old male with PMH of refractory epilepsy, prior CVA, HTN, HLD, cervical OA, and Alzheimer's presented to [facility] initially for cEEG for AED adjustments on 12/21 and admitted to ICU after code stroke activated on 12/29 for L sided weakness and frequent seizures since admission. ?? 12/25 Patient had frequent seizures that required Ativan. 12/29 Code stroke activated after L sided weakness; patient witnessed to have 5-6 focal seizures per hour. CT and CTA showed no occlusion; 70% chronic stenosis of L ICA that has been stable. Patient loaded with Keppra and VPA. 12/30 Patient had focal seizures that lasted >10 min; nursing reported multiple seizures per minute. Patient desat to 70-80s and required NRB during seizure episodes. Interval History: Per nursing, patient has decreased frequency of seizure episodes to 3-6 per hour. Less UE involvement compared to yesterday; mostly face twitching towards left side. He desated twice to 70s during seizure and required 2L O2 via NC. His mental status has improved; AOx4 most of the time and can follow commands. He required 2x 2mg versed overnight. On exam, patient is arousable to voice and can follow commands. He is AOx4 and voiced that he wantsto go home. 1 seizure episode was observed during exam with left face twitching that lasted 15-20 sec. No tongue biting or extremity twitching. Objective Patient Vitals for the past 24 hrs: BP Temp Temp src Pulse Resp SpO2 Weight 01/01/22 0700 145/75 -- -- 47 15 99 % -- 01/01/22 0630 155/78 -- -- 49 13 100 % -- 01/01/22 0600 162/83 -- -- 49 11 97 % -- 01/01/22 0530 158/77 -- -- 47 13 98 % -- 01/01/22 0500 165/79 -- -- 48 24 99 % -- 01/01/22 0430 154/81 -- -- 56 15 100 % -- 01/01/22 0400 156/86 -- -- 52 19 97 % -- 01/01/22 0352 -- 97.9 ??F (36.6 ??C) Axillary 51 16 97 % -- 01/01/22 0330 147/72 -- -- 56 13 98 % -- 01/01/22 0300 150/76 -- -- 54 11 97 % -- 01/01/22 0230 150/74 -- -- 58 12 100 % -- 01/01/22 0200 148/84 -- -- 82 12 100 % 143 lb 8.3 oz 01/01/22 0130 139/79 -- -- 84 11 100 % -- 01/01/22 0100 131/75 -- -- 66 12 100 % -- 01/01/22 0030 138/77 -- -- 73 11 100 % -- 01/01/22 0000 129/80 -- -- 73 14 95 % -- 12/31/21 2337 -- 97.7 ??F (36.5 ??C) Axillary 71 11 100 % -- 12/31/21 2300 132/74 -- -- 65 16 97 % -- 12/31/21 2230 127/75 -- -- 64 12 100 % -- 12/31/21 2200 132/95 -- -- 73 12 98 % -- 12/31/21 2130 150/81 -- -- 66 10 100 % -- 12/31/21 2100 143/83 -- -- 64 27 99 % -- 12/31/21 2030 137/80 -- -- 66 9 100 % -- 12/31/212016 -- 98.2 ??F (36.8 ??C) Axillary 67 13 99 % -- 12/31/21 2000 121/74 -- -- 70 9 99 % -- 12/31/21 1930 126/71 -- -- 64 11 98 % -- 12/31/21 1900 136/76 -- -- 68 10 98 % -- 12/31/21 1800 128/76 -- -- 64 10 100 % -- 12/31/21 1700 120/72 -- -- 60 9 100 % -- 12/31/21 1600 137/71 98.2 ??F (36.8 ??C) Axillary 62 11 100 % -- 12/31/21 1500 143/74 -- -- 54 13 100 % -- 12/31/21 1400 138/76 -- -- 62 18 100 % -- 12/31/21 1300 158/84 -- -- 59 15 100 % -- 12/31/21 1200 147/85 97.9 ??F (36.6 ??C) Axillary 58 10 100 % -- 12/31/21 1100 148/80 -- -- 50 (!) 53 99 % -- 12/31/21 1000 158/81 -- -- 51 12 100 % -- 12/31/21 0900 160/89 -- -- 47 12 100 % -- 12/31/21 0800 (!) 142/109 97.4 ??F (36.3 ??C) Axillary 61 11 94 % -- Intake/Output Summary (Last 24 hours) at 01/01/2022 0729 Last data filed at 01/01/2022 0559 Gross per 24 hour Intake 1184.84 ml Output 300 ml Net 884.84 ml Exam: Cortical Function Mental Status Awake, alert, follows commands Orientation Person, place, time, and situation Language Can respond in mumbled short phrases; comprehension intact Cranial Nerves II Pupils 3 mm and bilaterally reactive to light. Fundoscopic exam not performed. VIII Hearing is intact bilaterally to conversation. III/IV/ No EOM observed when commanded IX/X Not examined V Facial sensation symmetric to light touch and intact bilaterally. XI Not examined VII No facial palsy noted. XII Not examined Motor Function Movement No abnormalities noted Bulk No abnormalities noted Tone Increased tone on BUE Proximal Upper Distal Upper Proximal Lower Distal Lower Right 2/5 2/5 1/5 Left 1/5 1/5 1/5 Muscle Stretch Reflexes BI Right 3 Left 3 Sensory Noxious Stimuli Not withdrawing to pain on LUE Gait Deferred Labs: Recent Labs Component Name 01/01/2234812/31/212 12/30/21 0119 WBC 14.3* 14.3* 13.1* RBC 4.29* 4.20* 4.19* HGB 13.5 13.3 13.3 HCT 40.9 40.4 39.5 Recent Labs Component Name 01/01/2234812/31/21 0504 12/30/21 0119 NA 143 143 141 CL 107 111* 107 CO2 29 20* 25 BUN 20 18 25 CREATININE 0.79 0.66* 0.81 CALCIUM 8.9 8.0* 9.1 No results for input(s): MG in the last 53453 hours. Recent Labs Component Name 01/01/2234812/31/21 0412 12/27/21 0117 PHOS 2.6* 2.6* 2.8 Recent Labs Component Name 02/25/21 1134 07/18/19 1139 04/11/15 0622 PT 13.5 12.9 12.1 INR 1.1 1.0 0.9 No results for input(s): A1C in the last 89583 hours. Recent Labs Component Name 04/11/15 0622 CHOL 196 HDL 81 LDLCALC 102* TRIG 63 Recent Labs Component Name 05/15/19 1652 TSH 1.344 Recent Labs Component Name 12/31/21 0412 02/25/21 1459 02/25/21 1134 05/15/19 0911 05/13/19 2030 01/24/19 0154 CKTOTAL 77 - - 63 - 127 TROPONINI - 0.012 0.021 <0.010 - - - = values in this interval not displayed. EEG 12/31 0500 - 01/01 0500 IMPRESSION This is an abnormal epilepsy monitoring recording due to 1) frequent, but improving electro-clinical focal seizures 2) right hemispheric slowing?? CLINICAL CORRELATION: These findings indicate an acute ongoing, but improving focal epileptic process arising from the right parietal region broadly. Imaging: CTA BRAIN AND NECK 12/29/2021 IMPRESSION: 1.The dural venous sinuses are [...] AVM, or new acute large vessel occlusion. ?? CT BRAIN 12/29/2021 IMPRESSION: 1.No acute intracranial process. 2.Old infarcts and senescent changes are stable compared to the brain CT from 05/01/2021. Assessment Patient is a 61 year old male with Hx of refractory epilepsy, prior CVA, HTN, HLD, and Alzheimer's disease admitted to ICU for frequent focal seizures not controlled by current AED regimen. Imaging showed no recent changes and stroke w/u was negative. EEG showed acute ongoing focal epileptic process arising from R parietal region. Patient is currently receiving Keppra 2g q12hr, VPA 500 mg q6hr, lacosamide 200 mg QD, methylprednisone 1000mg QD x 5d (EOT 01/01), Clobazam 10 mg BID, and versed 2 mg q5min PRN. Since 01/01 0000, he received 4 mg versed and 7 mg Ativan. Seizure is decreasing in frequency and desat during seizure episodes only lasts 10-20 seconds. Plan # Complex focal seizures - Swallowing evaluation by speech therapy - Continue Keppra 2g q12hr, VPA 500 mg q6h, lacosamide 200 mg QD via enteral tube - Continue clobazam 10 mg BID via enteral tube - One time dose of Clobazam 20 mg before night time scheduled dose to reach steady state faster - Continue Versed 2 mg IV q5min PRN - Continue methylprednisone IV 1000 mg QD x 5 days (EOT 01/01) - Reevaluate possibility to transfer to floor tomorrow 01/02 ?? Case findings discussed with Dr. Raymundo, Attending physician. ?? Dmitriy Richardson, MS3 General Neurology * Marycarmen Hood RN - 01/01/2022 5:29 AM CDT Pt A&O x4 majority of the time, sometimes will get the year wrong, able to MARADIAGA, filament maker are weak R>L wiggles bilat toes, follows commands, PERRLA 3; HR NSR lowest 48 highest 92, SBP 130s-160s; 3L nasal cannula, oxygen desaturation x2 during larger seizures, versed x2, approximately 3-6 seizures a hour; good UOP BM smear this shift TF at goal of 20 no residuals; afebrile * Rowena Larios OT - 12/31/2021 4:18 PM CDT [facility] Department of Physical Medicine & Rehabilitation Progress Note Patient: Bi Tabor [facility] Record Number: [id number] Date of : 1960 Age: [age] year old 12/31/21 1618 Therapy on Hold Therapy on Hold New Order Required for Therapy Pt having multiple seizures within the hour. Not appropriate for skilled therapy at this time. JAVI HeartR/L * Sean Raymundo DO - 12/31/2021 3:27 PM CDT Neurology Progress Note ?? Patient: Bi Tabor Room: [facility] Age: [age] year old ?? Subjective: Patient with continued seizures overnight requiring intermittent benzodiazepine dosing. DHT cloggedpreventing clobazam yesterday ?? Objective: BP 158/84 Pulse 59 Temp 97.9 ??F (36.6 ??C) (Axillary) Resp 15 Ht 5' 11 (1.803 m) Wt 130lb (59 kg) SpO2 100% Neurologic examination: Patient alerting voice. Follows commands with right hand. Will follow to voice. ?? Assessment and Plan: Bi Tabor is a 61 year old man with frequent focal seizures. No clear etiology for the worseningof his home control Admitted for quantification of seizure burden. No reduction of medications doneinpatient. Seizures worsened over the week to multiple per hour. Due to frequency and intensity of seizures and requirement for frequent benzodiazepines and subsequent sedation patient was transferred to ICU. - Continue cEEG monitoring and seizure precautions - Continue Methylprednisolone 1000mg IV QDaily for total 5 days (today is day 4/5) - Continue Lacosamide 200mg BID and Keppra 2000 mg BID Depakote total daily dose 2000 mg ([id number] mg q6h IV), - Start clobazam 10 mg BID, may give extra dose today to build up level to steady state faster - Continue intermittent benzodiazepine dosing to decrease seizure burden I personally spent 35 minutes in the care of this patient. This time was spent reviewing the available records, coordinating the patients care with the inpatient team, and in [id number] time with the patient and his sisters counseling them on the plan for the hospitalization and the possible outcomes of this treatment including possible need for intubation and mechanical ventilation if patient becomes overly sedated. Sean Raymundo DO * Naa Cruz, PT - 12/31/2021 1:18 PM CDT [facility] Department of Physical Medicine & Rehabilitation Progress Note Patient: Bi Tabor Med Record Number: [id number] Date of : 1960 Age: [age] year old 12/31/21 1318 Therapy on Hold Therapy on Hold New Order Required for Therapy Per discussion with RN, patient is actively seizing - not appropriate for participation in physicaltherapy at this time. * James Velasquez - 12/31/2021 12:28 PM CDT MICU Progress Note 12/31/2021 12:40 PM Patient: Bi Tabor (:1960) Room: [facility] Admit Date: 12/21/2021. Hospital Day: 5 CC: Refractory epilepsy Hospital Course: Bi Tabor is 61 year old male with history of alcohol use disorder (resolved 2015), CVA, HTN, HLD, prior head injury, cervical osteoarthritis, anxiety, Alzheimer's (early onset) and refractory epilespy admitted to the EMU on 12/21/2021 continuous video EEG monitoring for medication adjustment forhis refractory epilepsy. Patient initially had seizures from a traumatic brain injury [id number] years ago. His seizures have two semiologies, brief staring episodes and generalized convulsive events. On 12/25/21 patient was found to have multiple seizures overnight that required ativan. On 12/26, the seizures continued, but patient was set for discharge per neuro. Family was not comfortable with patient being discharged, so patient remained admitted to the EMU. On 12/29/21 code stroke was called when nursing noticed L sided weakness. Head imaging without new vessel occlusion or stenosis. Has stable L ICA stenosis at 70%. On 12/29/21, he started having 5-6 seizures/hour. After the episodes he was confused, unable to speak, obtunded. Since 5pm on 12/29, he received his scheduled regimen and loading dose of Keppra 3.6 and VPA 1200mg. At 3AM patient started having focal seizures lasting >10min. No changes in vital signs or airway compromise. Neurology gave ativan 3mg, which aborted seizure, but proceeded to have 2 more events. Neurology was notified that nursing was not comfortable caring for this patient, thus requested a transfer to the ICU. ?? Patient was then transferred to MICU for closer seizure monitoring. In the MICU the patient was witnessed having his fourth seizure since arrival, which involved L facial and L UE twitching. He was unresponsive to his name and opens eyes to sternal rub. Neurology has increased depakote level and continued lacosamide and keppra. Methylprednisolone was started for total 3 days. ICU nursing reportedthe patient had been having multiple seizures per minute since being in the ICU. Per neurology, no acute interventions are needed for these seizures. Overnight multiple attempts for dobhoff placementwere made by nursing and night housestaff, which were unsuccessful. Radiology was consulted for assi stance in placing dobhoff tube, which was placed . During the seizures, patient would desaturate tothe 70s-80s. NRB was placed during these episodes. PRN versed was given for the frequency of seizures. Interval History: Yesterday per neurology, patient continued to have ~8-10 seizures per hour, which decreased to ~1-2per hour after the versed was given. These lasted from 20 sec to just over 1 minute. Patient had several episodes of desaturations to the 70s during his seizures. Overnight, patient continued to haveback-to back seizures. He was given 2mg Versed 4 times last night for the seizures. He was also given 4mg Ativan by neurology, which helped reduce the seizure frequency. His dobhoff also stopped flushing, with concern for clogging. Nursing attempted to clear it without success. KUB was ordered, showing mild kinking of the dobhoff. It was retracted and able to be flushed. It was confirmed by an add itional KUB. Objective: Vitals: 12/31/21 0400 12/31/21 0500 12/31/21 0600 12/31/21 0700 BP: 148/77 142/81 148/72 150/78 Pulse: 56 51 46 54 Resp: (!) 7 13 12 11 Temp: 97.5 ??F (36.4 ??C) 97.8 ??F (36.6 ??C) SpO2: 98% 98% 98% 98% Weight: Height: Intake/Output Summary (Last 24 hours) at 12/31/2021 1240 Last data filed at 12/31/2021 0500 Gross per 24 hour Intake 2323.26 ml Output 600 ml Net 1723.26 ml Physical Exam General - NAD, afebrile, non cachectic, EEG electrodes in place. HEENT - NC/AT, EOMI, moist mucous membranes. Neck - Supple, no LAD, no JVD Chest - CTAB no crackles or wheezes bilaterally CV - RRR no murmurs, radial and DP pulses 2+ Abdomen - Soft, ND, +BS Musculoskeletal - Moves all four extremities Extremities - No c/c/e Skin - No rashes, lesions or jaundice Neurologic - Opens eyes to voice. Does not follow commands. Intermittent left arm tonic movements, along with facial spasms, consistent with his seizures. Psych - Unable to assess. Labs: CBC: Recent Labs Component Name 12/31/21 0412 12/30/21 01112/29/21720 WBC 14.3* 13.1* 8.1 HGB 13.3 13.3 15.4 HCT 40.4 39.5 44.8 BMP: Recent Labs Component Name 12/31/21 0504 12/31/21 0412 12/30/21 0119 12/29/21 0721 12/27/21 0117 05/01/21 2159 02/25/21 1459 NA 143 - 141 140 141 - - CL 111* - 107 103 104 - - CO2 20* - 25 24 22 - - BUN 18 - 25 19 19 - - CREATININE 0.66* - 0.81 0.86 0.89 - - CALCIUM 8.0* - 9.1 9.7 9.5 - - PHOS - 2.6* - - 2.8 - 3.2 - = values in this interval not displayed. Hepatic: Recent Labs Component Name 12/30/21 0119 12/29/21 0721 12/27/21 011 ALT 20 27 26 AST 20 25 32 TBILI 0.2 0.4 0.5 PROT 6.0 7.2 6.7 ALB 3.0* 3.4 3.3* ALKPHOS 62 73 74 Coagulation: Recent Labs Component Name 02/25/21 1134 07/18/19 1139 04/11/15 0622 PT 13.5 12.9 12.1 INR 1.1 1.0 0.9 Cardiac Markers: Recent Labs Component Name 12/31/21 0412 02/25/21 1459 02/25/21 1134 05/15/19 0911 05/13/19 2030 01/24/19 0154 CKTOTAL 77 - - 63 - 127 TROPONINI - 0.012 0.021 <0.010 - - - = values in this interval not displayed. ABGs: No results for input(s): PHART, PO2ART, MER0CZB, BEART in the last 66890 hours. Micro: Microbiology Results (Displays last 21 days for this encounter ONLY) No results found for the last 504 hours. Imaging: Imaging reviewed. EEG IMPRESSION This is an abnormal epilepsy monitoring recording due to 1) frequent electro- clinical focal seizures 2) right hemispheric slowing ?? CT Brain Stroke 12/29/21 IMPRESSION: ?? 1.No acute intracranial process. 2.Old infarcts and senescent changes are stable compared to the brain CT from 05/01/2021. ?? CT angio brain neck stroke 01/18/22 IMPRESSION: ?? 1.The dural venous sinuses are not well opacified with contrast and cannot be evaluated. 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 3.70% stenosis of the left ICA origin due to atherosclerotic plaque at the bifurcation is stable. 4.No aneurysm, AVM, or new acute large vessel occlusion. Assessment: Epilepsy, unspecified, not intractable, without status epilepticus POA: Yes Difficulty in walking, not elsewhere classified POA: Yes Alzheimer's disease with early onset POA: Yes Hemiplegia and 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- dominant side POA: Yes History of CVA (cerebrovascular accident) POA: Yes Seizure POA: Yes Status epilepticus POA: Yes Acute encephalopathy POA: Yes PLAN: Neurological: #Refractory Epilepsy #Acute Encephalopathy - Refractory seizures requiring ICU level monitoring, despite increasing anti-epileptics. - CTH without new vessel occlusion and stable stenosis in the left ICA. - EEG showing right hemispheric slowing and frequent electro-clinical focal seizures. - There is concern given frequency of seizures seen clinically. PRN versed started. - Neurology recommended extending steroid duration to 5 total days. And added Clobazam for seizures. - CK level normal. Plan: - Continue 2mg midazolam q5min PRN. -Scheduled regimen: Methylprednisolone 1000mg IV QD (2 more days), Depakote 500 mg q6h (2000mg daily), Locosamide 200mg BID, Keppra 2g BID, clobazm 10mg BID -Continuous EEG monitoring - Appreciate neurology recommendations #Hx of CVA -Home ASA 81mg Cardiovascular: #Hx of HTN - Pressures have been stable. - Home amlodipine 5mg. -MAP goal - 65 mmHg #HLD - Home atorvastatin 40mg. Pulmonary: #Hypoxemia - Patient becomes hypoxemic to ~70% during the seizures. Has been placed on NRB during episodes. - No concern for other pulmonary pathology, as saturations return to >92% after the seizures subside. Plan: - Continue to monitor pulse-ox and telemetry. SpO2 goal - 92% GI: - No acute problems - Pantoprazole for ulcer ppx. - Miralax for bowel regimen. Renal: #BPH - History of BPH. - Home tamsulosin 0.4mg. Endocrine: BGM goal 140-180 mg/dL ID: #Leukocytosis - WBC count bumped to 13.1 from 8.1 the day prior. - DDx: likely reactive secondary to seizures and steriods vs less likely infectious. - Low suspicion of infection at this time. Plan: - Continue to monitor. Heme/Onc: #Thrombocytopenia - Plts at 120. Per chart review, baseline platelet value 70-150 on previous labs. - No acute concerns. No active bleeding. Plan: - Continue to monitor. - Transfuse for Hgb<7, Plt<10. FEN: -Monitor electrolytes QD, Replace K<4, Mg<2, Phos<3 Lines: Type: PIVs Day number: 2 Plan: Maintain Reason: IV medication Prophylaxis: Aspiration precautions w/ HOB elevation by 30 degrees GI prophyalxis w/ famotidine DVT prophyalxis w/ SCDs, lovenox Diet: Tube feeds once dobhoff placed Activity: As tolerated Disposition: ICU Monitoring Code Status: Full James Velasquez [facility] [employer] Medical Student, MS4 Associated attestation - Lesley Vargas MD - 12/31/2021 10:41 PM CDT Attending Attestation Note I have verified the documentation of the medical student including all history, exam, and medical decision-making details. I have personally performed a physical exam and have personally reviewed thedata to support my medical decision-making as outlined in the medical student's note, and I arrive i ndependently at the same conclusion. Date of Service: 12/31/2021 Acute Problem List: Epilepsy, unspecified, not intractable, without status epilepticus POA: Yes Difficulty in walking, not elsewhere classified POA: Yes Alzheimer's disease with early onset POA: Yes Hemiplegia and 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- dominant side POA: Yes History of CVA (cerebrovascular accident) POA: Yes Seizure POA: Yes Status epilepticus POA: Yes Acute encephalopathy POA: Yes Plan: - Pt with refractory epilepsy requiring ICU upgrade for close monitoring. Continue current AED regimen with Versed pushes as needed for seizure episodes. Continue standing scheduled Clobazam 10 mg BID - will consider increasing dose as permitted by patient's LOC. Continue monitoring respiratory status. Remains on continuous EEG. ICU Checklist: -Feeding: Tube feeds -Analgesia: none -Sedation: Versed, Clobazam -Thromboprophylaxis: lovenox -Head of bed maintained at 30 degrees -Ulcer prophylaxis: protonix -Glycemic control: target 140-180 -SBT: n/a -Bowel regimen: as needed -Indwelling lines: reviewed and removed if appropriate. -De-escalation of antibiotics: none Total Critical Care Time: 35 min - The following organ systems are in failure or are in imminent risk of life threatening deterioration: neurologic - Critical decision making: Highly Complex - I provided this patient with direct intervention & supervision necessary to prevent life threatening deterioration related to patient's presenting illness. - I personally spent critical care time directly and personally managing this patient. My critical care time included obtaining a history; examining the patient; evaluating oxygenation by pulse oximetry and making corresponding changes to oxygen support device settings; evaluating pt's hemodynamic status at frequent intervals and adjusting medications to maintain MAP at target and ensuring good end organ perfusion with re-assessment at regular intervals; ordering and reviewing studies includinglabs and imaging and using these to develop and adjust pt's treatment plan; evaluation of pt's response to treatment; frequent re-assessment; and discussions with consultants Lesley Vargas MD [employer] Division of Pulmonary, Critical Care, and Sleep Medicine [facility] * Giacomo Paulino - 12/31/2021 9:13 AM CDT Neurology Progress Note Patient: Bi Tabor Room: 305 Age: [age] year old Subjective: Overnight: Patient continues to have seizure (left face twitching and left arm shaking lasting 20-30s) 15-18 times per hour. Received 2mg Ativan 4 times. Received 4mg Ativan at 11pm after which seizure frequency decreased until 3am. Oxygen saturation decreased to 70-80% during seizure. Clobazam was not started due to issues with Dobhoff. Finished ethylprednisolone 1g X 3days yesterday. HPI: Bi Tabor is a 61 year old male with PMH including alcohol abuse (resolved 2015), CVA (02/2015),HTN, HLD, prior head injury (from a fall?), cervical osteoarthritis, anxiety, Alzheimer's (early onset) and refractory epilepsy (reported onset, two weeks after his head injury), who presented to [facility] continuous video EEG monitoring for medication adjustment and to quantify seizure burden.?? Patient had continued frequent seizures since admission. Code stroke atactivated on 12/29/2021 for left sided weakness but stroke workup was negative. Due to concerns from nursing staff after frequent seizures, patient was transferred to MICU on 12/30/2021 for close seizure monitoring. Objective: BP 150/78 Pulse 54 Temp 97.8 ??F (36.6 ??C) (Oral) Resp 11 Ht 5' 11 Wt 130 lb SpO2 98% Temp (30hrs) Max:98.4 ??F (36.9 ??C) Body mass index is 18.13 kg/m??. Neurologic examination: Patient is lethargic but more awake than yesterday. Open eyes spontaneously. Follows with right upper extremity. Grimaces and withdraws all 4 extremities to pain but left side has less movement and strength. Hyperreflexia on all four, bibinski is mute. 1 focal seizures observed during physical examination. Semiology was left face twitching and clonicmovements of left UE. Assessment and Plan: Bi Tabor is a 61 year old male with PMH including alcohol abuse (resolved 2015), CVA (02/2015),HTN, HLD, prior head injury (from a fall?), cervical osteoarthritis, anxiety, Alzheimer's (early onset) and refractory epilepsy (reported onset, two weeks after his head injury), [facility] and to quantify seizure burden.?? Patient had continued frequent seizures since admission. Code stroke atactivated on 12/29/2021 for left sided weakness but stroke workup was negative. Due to concerns from nursing staff after frequent seizures, patient was transferred to MICU on 12/30/2021 for close seizure monitoring. cEEG reported as abnormal due to frequent electro-clinical focal seizures and right hemispheric slowing. These findings indicate an acute ongoing focal epileptic process arising from the right parietal region broadly. - Continue cEEG monitoring and seizure precautions - Restart Methylprednisolone 1000mg IV QDaily for 2 more days to achieve 5 days treatment - Start Clobazam 10mg BID PO - Continue Lacosamide 200mg BID and Keppra 2g BID - Continue??Valproic acid 500 mg q6h (Total 2000 mg daily)?? - Versed PRN ? Discussed Assessment and Plan with Attending Physician, Dr. Raymundo. Giacomo Paulino MS4 * Dmitriy Richardson - 12/31/2021 7:38 AM CDT General Neurology Progress Note Bi Tabor Age: [age] year old Date of : 1960 Date of Admission: 12/21/2021 Hospital Day: 10 Subjective Brief HPI: Patient is a 61 yr old male with PMH of refractory epilepsy, prior CVA, HTN, HLD, cervical OA, and Alzheimer's presented to [facility] initially for cEEG for AED adjustments on 12/21 and admitted to ICU after code stroke activated on 12/29 for L sided weakness and frequent seizures since admission. 12/25 Patient had frequent seizures that required Ativan. 12/29 Code stroke activated after L sided weakness; patient witnessed to have 5-6 focal [address] per hour. CT and CTA showed no occlusion; 70% chronic stenosis of L ICA that has been stable. Patient loaded with Keppra and VPA. 12/30 Patient had focal seizures that lasted >10 min; nursing reported multiple seizures per minute. Patient desat to 70-80s and required NRB during seizure episodes. Interval History: Per nursing, patient has been having frequent seizure episodes (10-15 episodes per hour) and havingtrouble protecting his airway. He had frequent gurgling and would desat during seizure episodes. Patient's family reported that patient's mental status has been improving compared to yesterday 12/30. Patient required 4 mg of Ativan at 11 pm 12/30, which aborted the seizure until ~3 am. Methylprednisone 1000mg QD x 3d completed on 12/30. Dobhoff tube was clogged but successfully flushed this AM 12/31; his AEDs are changed from IV to enteral tube feed. Objective Patient Vitals for the past 24 hrs: BP Temp Temp src Pulse Resp SpO2 12/31/21 0700 150/78 -- -- 54 11 98 % 12/31/21 0600 148/72 97.8 ??F (36.6 ??C) Oral 46 12 98 % 12/31/21 0500 142/81 -- -- 51 13 98 % 12/31/21 0400 148/77 97.5 ??F (36.4 ??C) Axillary 56 (!) 7 98 % 12/31/21 0300 146/73 -- -- 55 10 98 % 12/31/21 0200 144/71 -- -- 56 9 97 % 12/31/21 0100 142/76 -- -- 60 9 97 % 12/31/21 0000 143/90 98.4 ??F (36.9 ??C) Axillary 70 14 97 % 12/30/21 2300 (!) 160/100 -- -- 59 (!) 6 98 % 12/30/21 2230 135/74 -- -- 56 (!) 8 99 % 12/30/21 2200 135/74 -- -- 64 (!) 7 100 % 12/30/21 2100 131/71 -- -- 64 13 99 % 12/30/21 2000 121/74 -- -- 71 13 99 % 12/30/21 1900 117/74 -- -- 60 14 96 % 12/30/21 1800 134/75 -- -- 60 12 97 % 12/30/21 1700 127/74 -- -- 64 12 97 % 12/30/21 1600 111/73 97.8 ??F (36.6 ??C) Oral 71 14 98 % 12/30/21 1500 146/83 -- -- 80 15 96 % 12/30/21 1300 120/76 -- -- 68 14 99 % 12/30/21 1200 139/81 98.4 ??F (36.9 ??C) Oral 76 9 99 % 12/30/21 1100 152/81 -- -- 68 14 99 % 12/30/21 1000 144/83 -- -- 63 11 96 % 12/30/21 0900 111/68 -- -- 61 13 96 % 12/30/21 0800 139/76 98.1 ??F (36.7 ??C) Oral 64 13 96 % Intake/Output Summary (Last 24 hours) at 12/31/2021 0738 Last data filed at 12/31/2021 0500 Gross per 24 hour Intake 2323.26 ml Output 600 ml Net 1723.26 ml Exam: HR 46, BP 163/82, O2 98% @ 3L via NC at 8am. No O2 requirement at 11 am. During examination, one focal seizure episode was witnessed. Patient exhibited myoclonus on LUE, L sided facial twitching, and tongue biting behavior. Patient desaturated to 82%. Episode lasted < 1 min. Patient was oriented to self after seizure. Cortical Function Mental Status Somnolent but arousable to voice during exam at 8am; at 11am more spontaneous eye-opening observed Follows commands Orientation Person, place; not oriented to time Language Slurred speech, comprehension intact Motor Function Movement No abnormalities noted Bulk No abnormalities noted Tone Rigidity on BLE Proximal Upper Distal Upper Proximal Lower Distal Lower Left 0/5 0/5 0/5 0/5 Right 2/5 2/5 3/5 2/5 Muscle Stretch Reflexes BI BR PAT TOES Right 3 3 2 mute Left 3 3 2 mute Gregg sign absent on BUE. Sensory Light Touch Not tested Noxious Stimuli Withdrawal to pain diminished on LLE and LUE Temperature Not tested Pallesthesia Not tested Gait Deferred Labs: Recent Labs Component Name 12/31/21 0412 12/30/21 0119 12/29/21 0721 WBC 14.3* 13.1* 8.1 RBC 4.20* 4.19* 4.82 HGB 13.3 13.3 15.4 HCT 40.4 39.5 44.8 Recent Labs Component Name 12/31/21 0504 12/30/21 0119 12/29/21 0721 NA 143 141 140 CL 111* 107 103 CO2 20* 25 24 BUN 18 25 19 CREATININE 0.66* 0.81 0.86 CALCIUM 8.0* 9.1 9.7 No results for input(s): MG in the last 29597 hours. Recent Labs Component Name 12/31/21 0412 12/27/21 0117 02/25/21 1459 PHOS 2.6* 2.8 3.2 Recent Labs Component Name 02/25/21 1134 07/18/19 1139 04/11/15 0622 PT 13.5 12.9 12.1 INR 1.1 1.0 0.9 No results for input(s): A1C in the last 42666 hours. Recent Labs Component Name 04/11/15 0622 CHOL 196 HDL 81 LDLCALC 102* TRIG 63 Recent Labs Component Name 05/15/19 1652 TSH 1.344 Recent Labs Component Name 12/31/21 0412 02/25/21 1459 02/25/21 1134 05/15/19 0911 05/13/19 2030 01/24/19 0154 CKTOTAL 77 - - 63 - 127 TROPONINI - 0.012 0.021 <0.010 - - - = values in this interval not displayed. Imaging: CTA BRAIN AND NECK 12/29/2021 IMPRESSION: 1.The dural venous sinuses are [...] AVM, or new acute large vessel occlusion. CT BRAIN 12/29/2021 IMPRESSION: 1.No acute intracranial process. 2.Old infarcts and senescent changes are stable compared to the brain CT from 05/01/2021. Assessment Patient is a 61 year old male with Hx of refractory epilepsy, prior CVA, HTN, HLD, and Alzheimer's disease admitted to ICU for frequent seizures not controlled by current AED regimen. Patient is currently receiving Keppra 2g q12hr, VPA 500 mg q6hr, lacosamide 200 mg QD, methylprednisone 1000mg QD x3 d (EOT 12/30), and versed 2 mg q5min PRN. Clobazam 10 mg BID was not administered d/t Dobhoff tube clogging. Imaging showed no recent changes and stroke w/u was negative. EEG showed acute ongoing focal epileptic process arising from R parietal region. In the last 24 hours, he received 16 mg versed and 7 mg Ativan. Patient is having difficulty maintaining his airway during seizure episodes and requires O2 via NC, but is overall more alert and arousable during today's exam. Plan # Complex focal seizures - Recommend continue Keppra 2g q12hr, VPA 500 mg q6h, lacosamide 200 mg QD via enteral tube - Recommend start clobazam 10 mg BID via enteral tube - Recommend continue Versed 2 mg IV q5min PRN - Recommend extend methylprednisone IV 1000 mg QD for 2 more days to complete 5 day course. Case findings discussed with Dr. Raymundo, Attending physician. Dmitriy Rcihardson, MS3 General Neurology * Trista Ramos RN - 12/31/2021 5:48 AM CDT Shift note: Upon assessment of patient at beginning of shift, patients Dobhoff was noted to be clogged. At thispoint, patient had only had 1 hour (20cc) of feeds running. Multiple attempts made to unclog tube, but was unable. Provider made are and maintenance fluid started. Patient noted to be seizing a lot more frequently throughout the beginning of the shift, MICU 1 made aware and reached out to Neurology. Seizures were still 15-20 seconds long, focal seizures only, but the patient was noted to desat during the seizures, which was a new finding. Oxygen was placed onpatient. Multiple doses of versed were given to try to combat the seizure activity, Neurology resident ordered 1 time 4 mg ativan push and increased dosing of seizure medications. Seizures throughoutthe shift lessened to approximately 10- 15/hr. Will update team with any concerns. * James Velasquez - 12/30/2021 2:11 PM CDT MICU Progress Note 12/30/2021 2:12 PM Patient: Bi Tabor (:1960) Room: [facility] Admit Date: 12/21/2021. Hospital Day: 4 CC: Refractory epilepsy Hospital Course: Bi Tabor is 61 year old male with history of alcohol use disorder (resolved 2015), CVA, HTN, HLD, prior head injury, cervical osteoarthritis, anxiety, Alzheimer's (early onset) and refractory epilespy admitted to the EMU on 12/21/2021 continuous video EEG monitoring for medication adjustment forhis refractory epilepsy. Patient initially had seizures from a traumatic brain injury [id number] years ago. His seizures have two semiologies, brief staring episodes and generalized convulsive events. On 12/25/21 patient was found to have multiple seizures overnight that required ativan. On 12/26, the seizures continued, but patient was set for discharge per neuro. Family was not comfortable with patient being discharged, so patient remained admitted to the EMU. On 12/29/21 code stroke was called when nursing noticed L sided weakness. Head imaging without new vessel occlusion or stenosis. Has stable L ICA stenosis at 70%. On 12/29/21, he started having 5-6 seizures/hour. After the episodes he was confused, unable to speak, obtunded. Since 5pm on 12/29, he received his scheduled regimen and loading dose of Keppra 3.6 and VPA 1200mg. At 3AM patient started having focal seizures lasting >10min. No changes in vital signs or airway compromise. Neurology gave ativan 3mg, which aborted seizure, but proceeded to have 2 more events. Neurology was notified that nursing was not comfortable caring for this patient, thus requested a transfer to the ICU. ?? Patient was then transferred to MICU for closer seizure monitoring. In the MICU the patient was witnessed having his fourth seizure since arrival, which involved L facial and L UE twitching. He was unresponsive to his name and opens eyes to sternal rub. Neurology has increased depakote level and continued lacosamide and keppra. Methylprednisolone was started for total 3 days. Interval History: ICU nursing reported the patient had been having multiple seizures per minute since being in the ICU. Per neurology, no acute interventions are needed for these seizures. Overnight multiple attempts for dobhoff placement were made by nursing and night housestaff, which were unsuccessful. Radiology was consulted for assistance in placing dobhoff tube. During the seizures this morning, patient would desaturate to the 70s-80s. NRB was placed during these episodes. Otherwise patient's vital signs have remained stable. He does not follow commands. Objective: Vitals: 12/30/21 1000 12/30/21 1100 12/30/21 1200 12/30/21 1300 BP: 144/83 152/81 139/81 120/76 Pulse: 63 68 76 68 Resp: 11 14 9 14 Temp: 98.4 ??F (36.9 ??C) SpO2: 96% 99% 99% 99% Weight: Height: Intake/Output Summary (Last 24 hours) at 12/30/2021 1448 Last data filed at 12/30/2021 1300 Gross per 24 hour Intake 1487.02 ml Output 400 ml Net 1087.02 ml Physical Exam General - NAD, afebrile, non cachectic, EEG electrodes in place. HEENT - NC/AT, EOMI, moist mucous membranes. Neck - Supple, no LAD, no JVD Chest - CTAB no crackles or wheezes bilaterally CV - RRR no murmurs, radial and DP pulses 2+ Abdomen - Soft, ND, +BS Musculoskeletal - Moves all four extremities Extremities - No c/c/e Skin - No rashes, lesions or jaundice Neurologic - Opens eyes to pain. Does not follow commands. Intermittent left arm tonic movements, along with rightward eye deviation, and facial spasms, consistent with his seizures. Psych - Unable to assess. Labs: CBC: Recent Labs Component Name 12/30/21 0119 12/29/21 0721 12/27/21 0117 WBC 13.1* 8.1 6.7 HGB 13.3 15.4 15.1 HCT 39.5 44.8 44.9 BMP: Recent Labs Component Name 12/30/21 0119 12/29/21 0721 12/27/21 0117 05/01/21 2159 02/25/21 1459 02/25/21 1212 08/20/20 0403 NA 141 140 141 - - - 141 CL 107 103 104 - - - 103 CO2 22 - - - 26 BUN - - - 16 CREATININE 0.81 0.86 0.89 - - - 1.0 CALCIUM 9.1 9.7 9.5 - - - 9.3 PHOS - - 2.8 - 3.2 - 3.2 - = values in this interval not displayed. Hepatic: Recent Labs Component Name 12/30/21 0119 12/29/21 0712/27/21 011 ALT 20 27 26 AST 20 25 32 TBILI 0.2 0.4 0.5 PROT 6.0 7.2 6.7 ALB 3.0* 3.4 3.3* ALKPHOS 62 73 74 Coagulation: Recent Labs Component Name 02/25/21 1134 07/18/19 1139 04/11/15 0622 PT 13.5 12.9 12.1 INR 1.1 1.0 0.9 Cardiac Markers: Recent Labs Component Name 02/25/21 1459 02/25/21 1134 05/15/19 0911 05/13/19 2030 01/24/19 0154 CKTOTAL - - 63 - 127 TROPONINI 0.012 0.021 <0.010 - - - = values in this interval not displayed. ABGs: No results for input(s): PHART, PO2ART, SZF1AFM, BEART in the last 19369 hours. Micro: Microbiology Results (Displays last 21 days for this encounter ONLY) No results found for the last 504 hours. Imaging: Imaging reviewed. EEG IMPRESSION This is an abnormal epilepsy monitoring recording due to 1) frequent electro- clinical focal seizures 2) right hemispheric slowing ?? CT Brain Stroke 12/29/21 IMPRESSION: ?? 1.No acute intracranial process. 2.Old infarcts and senescent changes are stable compared to the brain CT from 05/01/2021. ?? CT angio brain neck stroke 01/18/22 IMPRESSION: ?? 1.The dural venous sinuses are not well opacified with contrast and cannot be evaluated. 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 3.70% stenosis of the left ICA origin due to atherosclerotic plaque at the bifurcation is stable. 4.No aneurysm, AVM, or new acute large vessel occlusion. Assessment: Epilepsy, unspecified, not intractable, without status epilepticus POA: Yes Difficulty in walking, not elsewhere classified POA: Yes Alzheimer's disease with early onset POA: Yes Hemiplegia and 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- dominant side POA: Yes History of CVA (cerebrovascular accident) POA: Yes Seizure POA: Yes Status epilepticus POA: Yes Acute encephalopathy POA: Yes PLAN: Neurological: #Refractory Epilepsy #Acute Encephalopathy - Refractory seizures requiring ICU level monitoring, despite increasing anti-epileptics. - CTH without new vessel occlusion and stable stenosis in the left ICA. - EEG showing right hemispheric slowing and frequent electro-clinical focal seizures. - Neurology gave loading dose keppra 3.6g and VPA 100mg, and 3mg ativan. - There is concern given frequency of seizures seen clinically today. Plan: - 2mg midazolam given. -Scheduled regimen: Methylprednisolone 1000mg IV QD, Depakote 500 mg TID, Locosamide 200mg IV am BID, Keppra IV 2gr BID -Continuous EEG monitoring -CK level pending to assess for rhabdo in setting of frequent seizures - Appreciate neurology recommendations #Hx of CVA -Home ASA 81mg after enteral access gained Cardiovascular: #Hx of HTN - Pressures have been stable. - Will begin home amlodipine 5mg after dobhoff obtained. -MAP goal - 65 mmHg #HLD - On home atorvastatin 40mg. - Will begin home dose after dobhoff placement. Pulmonary: #Hypoxemia - Patient becomes hypoxemic to ~70% during the seizures. Has been placed on NRB during episodes. - No concern for other pulmonary pathology, as saturations return to >92% after the seizures subside. Plan: - Continue to monitor pulse-ox and telemetry. SpO2 goal - 92% GI: #Lack of enteral access - Given frequency of seizures and encephalopathy, patient is unable to safely swallow. - Dobhoff placement was unsuccessful several times overnight Plan: - Radiology consult for dobhoff placement - May resume tube feeds per nutrition recs once placed. Renal: #BPH - History of BPH. On tamsulosin 0.4mg at home. - Will resume home dose once dobhoff is placed. Endocrine: BGM goal 140-180 mg/dL ID: #Leukocytosis - WBC count bumped to 13.1 from 8.1 the day prior. - DDx: likely reactive secondary to seizures and steriods vs less likely infectious. - Low suspicion of infection at this time. Plan: - Continue to monitor. Heme/Onc: #Thrombocytopenia - Plts at 120 today. Per chart review, baseline platelet value 70-150 on previous labs. - No acute concerns. No active bleeding. Plan: - Continue to monitor. - Transfuse for Hgb<7, Plt<10. FEN: -Monitor electrolytes QD, Replace K<4, Mg<2, Phos<3 Lines: Type: PIVs Day number: 1 Plan: Maintain Reason: IV medication Prophylaxis: Aspiration precautions w/ HOB elevation by 30 degrees GI prophyalxis w/ famotidine DVT prophyalxis w/ SCDs, Heparin Diet: Tube feeds once dobhoff placed Activity: As tolerated Disposition: ICU Monitoring Code Status: Full James Velasquez [employer] Medical Student, MS4 * Quan Nguyễn MD - 12/30/2021 10:37 AM CDT 50mL water soluble contrast for FL Dobhoff placement. Utilization approved. Tube to station no. [id number]. Quan Nguyễn MD (PGY-2) Clothing Manager Department of Radiology E TABLEMAN * Glo Clarke SLP - 12/30/2021 8:58 AM CDT [facility] Department of Physical Medicine & Rehabilitation Progress Note Patient: Bi Tabor Med Record Number: [id number] Date of : 1960 Age: [age] year old 12/30/21 0844 Missed Visit Missed Visit RN Cancel Attempted to see patient for bedside swallowing evaluation, RN states patient is not appropriate. ST will continue to follow. 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 continuous video EEG monitoring for medication adjustment and to quantify seizure burden.?? Patient had continued frequent seizures since admission. Code stroke atactivated on 12/29/2021 for left sided weakness but stroke workup was negative. Due to concerns from nursing staff after frequent seizures, patient was transferred to MICU on 12/30/2021 for close seizure monitoring. Upon evaluation this morning patient was in NAD.Patient was obtunded. 2 focal seizures observed during physical examination. Semiology was Frequent blinking, lip movements and clonic movements of left UE. Objective: BP 120/73 Pulse 75 Temp 98 ??F (36.7 ??C) (Oral) Resp (!) 8 Ht 5' 11 (1.803 m) Wt 130 lb(59 kg) SpO2 96% Temp (30hrs) Max:98.2 ??F (36.8 ??C) Body mass index is 18.13 kg/m??. Neurologic examination: Patient is obtunded. Does not open eyes to noxious stimuli. Grimaces face and localizes the pain. Moves all extremities to pain. Bilateral UE and L LE hyperreflexia seen. Gregg positive on R Assessment and Plan: Bi Tabor is a 61 year old male with PMH including alcohol abuse (resolved 2015), CVA (02/2015),HTN, HLD, prior head injury (from a fall?), cervical osteoarthritis, anxiety, Alzheimer's (early onset) and refractory epilepsy (reported onset, two weeks after his head injury), who presented to [facility] continuous video EEG monitoring for medication adjustment and to quantify seizure burden.?? Patient had continued frequent seizures since admission. Code stroke atactivated on 12/29/2021 for left sided weakness but stroke workup was negative. Due to concerns from nursing staff after frequent seizures, patient was transferred to MICU on 12/30/2021 for close seizure monitoring. cEEG reported as abnormal due to frequent electro-clinical focal seizures and right hemispheric slowing. These findings indicate an acute ongoing focal epileptic process arising from the right parietal region broadly - Continue cEEG monitoring and seizure precautions - Continue Methylprednisolone 1000mg IV QDaily for total 3 days - Continue Lacosamide 200mg IV am BID and Keppra IV 2gr BID - Please increase ??Depakote 500 mg frequency to??QID (Total 2000 mg daily)?? - Will consider to start scheduled Ativan if current treatment fails ? Discussed Assessment and Plan with Attending Physician, Dr. Raymundo. Carlos Soares MD Neurology Resident Associated attestation - Sean Raymundo DO - 12/30/2021 4:34 PM CDT Patient seen and examined on 12/30/2021. I agree with the findings and plan as outlined in the trainee note. Transferred to ICU for closer nursing care. Patient requiring repeat benzodiazepine dosing for recurrent seizures this leads to sedation. Discussed with sister Ofe patient may require intubation and mechanical ventilation if unable to maintain airway due to sedative effects of medications. Will plan to optimize VPA today as well as adding standing oral BZD (clobazam) with prn Versed for clustering seizures. I personally spent 35 minutes in the care of this patient. This time was spent reviewing the available records, coordinating the patients care with the inpatient team, and physical time spent with the patient. * Abimbola Lui, PT - 12/30/2021 8:44 AM CDT [facility] Department of Physical Medicine & Rehabilitation Progress Note Patient: Bi Tabor [facility] Record Number: [id number] Date of : 1960 Age: [age] year old 12/30/21 0844 Missed Visit Missed Visit MD Cancel Per MICU rounds, cancel therapy today. * Rowena Larios OT - 12/30/2021 8:35 AM CDT [facility] Department of Physical Medicine & Rehabilitation Progress Note Patient: Bi Tabor [facility] Record Number: [id number] Date of : 1960 Age: [age] year old 12/30/21 0835 Missed Visit Missed Visit MD Cancel Per MICU rounds, cancel therapy today. * Naa aMrr OT - 12/30/2021 7:08 AM CDT [facility] Department of Physical Medicine & Rehabilitation Progress Note Patient: Bi Tabor [facility] Record Number: [id number] Date of : 1960 Age: [age] year old 12/30/21 0700 Therapy on Hold Therapy on Hold Chart Reviewed;Floor to ICU;New Order Required for Therapy * Rojas Yap MD - 12/30/2021 5:14 AM CDT Plan of care: ?? Patient has been having focal seizures, 5 to 6 episodes per hour. His semiology is described as left face and left arm clonic movements. Duration can go from 10 seconds to one minute. After episodes he is confused, no able to talk, lethargic to obtunded but then he is able to follow simple commands. (closing eyes, show thumbs up, show 2 fingers with his right hand). Due to concerns from nursing staff patient was transferred to MICU. Recommendations: - Continuous video EEG monitoring, cardiac telemetry, and pulse oximetry. - VS q 4 hours. - Anti seizures medications:?? Continue Methylprednisolone 1000mg IV QD Continue Depakote 500mg TID Continue Lacosamide 200mg IV am BID Continue keppra IV 2gr BID - If patient has a GTC lasting 5 or more minutes. Please administer ativan 4mg time once and call neurology. - If patient cluster (5 or more partial complex seizures in 1 hour). Please call neurology. Rojas Yap. PGY2 Neurology resident. * Rojas Yap MD - 12/30/2021 4:03 AM CDT Plan of care: Patient has been having focal seizures, 5 to 6 episodes per hour. His semiology is described as left face and left arm clonic movements. Duration can go from 10 seconds to one minute. After episodes he is confused, no able to talk, lethargic to obtunded but then he is able to follow simple commands. (closing eyes, show thumbs up, show 2 fingers with his right hand). Today, since 5pm: - Besides continuing his scheduled regimen (keppra 2 gr BID, vimpat 200 mg BID, VPA 500 mg TID). - Patient received a loading dose of keppra 3.6gr at 18:26 pm. - Got loaded dose of VPA 1200mg at 23:30 pm. Nursing staff communicated to me that they do not feel comfortable taking care of the patient on the floor as he is requiring constant observation that can not be provided on floor ans he is not a typical EMU admission. Charge nurse called nurse supervisor pumping station and raised her concerns about keeping patient on the floor. During my communication with nursing staff, I always communicated with them that his seizure are focal, never compromise his airway, or caused vital sign changes. Around 3 am, nursing staff called me saying that patient was having focal seizures for more than 10minutes. There was never changes in vital signs, he was always able to protect his airway. I decided to give 3 mg of ativan as in the morning he got 2 mg and became stuporous/obtunded. Ativan 3 mg aborted his seizure , however he continue to have 2 typical events in a 3 minutes period. Nursing staff decided to call rapid response even though there was no signs of compromise of his respiratory or cardiovascular function. Nursing staff, nurse supervisor pumping station raised again their concerns that he is not a patient for floors, they already called ICU charge nurse and even try to communicate with MICU fellow to let him know about this patient . I communicated to nursing staff that patient is hemodynamically stable, his seizure dont cause compromise of his respiratory function and he can remain on the ton. Nursing staff , made clear their discomfort with that decision, so I decided to talked again with attending and transferred patient toMICU for closer monitoring. Rojas Yap. PGY3 Neurology resident. * Jagdish Kohli - 12/30/2021 3:56 AM CDT responded to rapid response page. Patient experiencing multiple and consecutive seizures. Patient stabilized at this time. Plan to transfer to ICU care. Please call Ascom [phone] for further support from [facility] care. Jagdish Kohli 12/30/2021 3:58 AM * Olena Major RN - 12/30/2021 3:46 AM CDT Pt continues to have face twitching and had left arm stiffing approx 12x 20sec consecutively MD called and stated that he would call back in 5mins. Rapid Response paged. * Cece Jimenez RN - 12/30/2021 3:01 AM CDT Pt continues to have seizure after the last dose of valproic acid.approximately 8x seizure . the longest one after the last dose of depacon was about a minute , with twitching of face , eyes and mouth then jerking of left arm. Pt doesn't answer question but able to follow command (delayed).neurology earth observations chief scientist notified. * Cece Jimenez RN - 12/30/2021 12:00 AM CDT Patient IV depacon ongoing at this time. Dr Xie is at bedside And informed this RN that after the IV meds, patient for observation for 2 hours and see if the seizure will stop. * Olena Major RN - 12/29/2021 11:33 PM CDT Pt continues to have frequent seizures ( see flow sheet) after medications (see mar). Dr. Xie, Tony Bush, and Rapid Respond Team called to discuss pt's condition. * Olena Major RN - 12/29/2021 8:17 PM CDT Rapid Respond team updated on pt's condition. * Olena Major RN - 12/29/2021 8:[address] Xie at bedside * Jayson Monreal RN - 12/29/2021 7:03 PM CDT Last 4 seizures that I have witnessed now involve the left arm raising and shaking .. the PROJECTION TECHNICIAN has ordered more meds with a loading dose of keppra which is just now completed .. the Physicians have been aware of his continued seizures through out the day .. I spoke with Dr Ballesteros that we had quite calling and marking them because we were aware they have been watching the EEG progress through the day and he said that was fine * Ana Castro, MINH/ONIN - 12/29/2021 2:46 PM CDT Nutrition Re-Assessment Brief Synopsis: Patient is at Nutrition Risk; Specific criteria can be found in assessment below Nutrition Plan: Continue Regular diet. Ensure Enlive (1.5 Margarita) (350 kcals, 20 g protein, 44 g carbohydrate) TID Recommendations to Physician: Supervise/assist with feedings as needed to encourage PO intake Increase bowel regimen Comments: Pt scheduled for reassessment. Code stroke call this am, CTA negative for any new LVP or new severe stenosis noted; no further stroke work up at this time, noted in chart. Pt continues to have frequent seizers. Pt sedated with ativan today. Reported PO intake noted in chart is 0-85% of meals and 0-240mL of ONS, see recs above. LBM reported 12/25, active bowel sounds, see recs above. Willcontinue to monitor. Assessment: Med/Surg History and Clinical Diagnoses: seizure; PMH including alcohol abuse (resolved 2015), CVA,HTN, HLD, prior head injury, cervical osteoarthritis, anxiety, Alzheimer's (early onset) and refractory epilepsy. Diet order accuracy Current diet order: Regular Current supplement order: Ensure Enlive TID Nutritional Supplement at Discharge: Yes Nutrition recommendation: agree with current nutrition order P.O.Intake for the past 48 hrs:% Meal Taken Av.3 % Min: 0 % Max: 10 % Supplement(s) Consumed- Last 48 hours Date/Time Dietary Supplement Name Liquid Supplement Consumed (mL) Non-Liquid Supplement Consumed (%) 12/29/21 1000 -- 0 ML -- 12/29/21 1400 -- 0 ML -- Food Allergies: No known food allergies GI Concerns: None Chewing/Swallowing: Altered Dentition (Missing teeth) Pain affecting intake: No Admission weight: Weight: 130 lb (59 kg) (12/21/21 1236) Recent Weights/Methods 09/17/2020 1016 02/25/2021 1059 05/01/2021 2236 08/28/2021 1101 09/01/2021 1359 12/09/2021 1023 12/21/2021 1236 Weight: 135 lb (61.2 kg) 168 lb (76.2 kg) 168 lb (76.2 kg) -- -- 131 lb (59.4 kg) 130 lb (59 kg) Weight Method (Utilize Scales): -- Stated -- -- -- -- Estimated BMI: Body mass index is 18.13 kg/m??. BMI Range: Underweight Wt Comments: Monitoring. Recommend weighing pt utilizing bedscale. Height: 5' 11 (180.3 cm) IBW/lb (Calculated) Male: 172 , Usual weight/lb: 137lb (Reported by pt) Laboratory values reviewed. Recent Labs Component Name 12/29/21 0721 12/27/21 0117 12/21/21 1245 BUN 19 19 15 CREATININE 0.86 0.89 1.00 NA 140 141 144 POTASSIUM 4.6* 4.1 5.4* CL 103 104 106 CO2 24 22 29 GLUCOSE 139* 84 98 CALCIUM 9.7 9.5 9.7 PROT 7.2 6.7 6.8 ALB 3.4 3.3* 3.6 TBILI 0.4 0.5 0.4 ALKPHOS 73 74 71 ALT 27 26 14 AST 25 32 22 ANIONGAP 18 19* 14 BCR 22 21 15 OSMOLALITY 295 293 299 AGRATIO 0.9* 1.0* 1.1 EGFR >90 >90 86* Medications noted. Current Facility-Administered Medications Medication ??? 0.9% NaCl injection 3 mL ??? acetaminophen (Tylenol) tablet 500 mg ??? amLODIPine (Norvasc) tablet 5 mg ??? aspirin chew tablet 81 mg ??? atorvastatin (Lipitor) tablet 40 mg ??? brivaracetam (Briviact) tablet 200 mg ??? divalproex DR (Depakote) tablet 250 mg ??? divalproex DR (Depakote) tablet 500 mg ??? enoxaparin (Lovenox) injection 40 mg ??? ibuprofen (Motrin) tablet 600 mg ??? iopamidol (Isovue 370) 76 % contrast ??? lacosamide (Vimpat) tablet 200 mg ??? melatonin tablet 3 mg ??? methylPREDNISolone sod succ (SOLU-Medrol) 1,000 mg in 0.9% NaCl IV 100 mL bolus ??? ondansetron (Zofran) injection 4 mg ??? tamsulosin (Flomax) capsule 0.4 mg ??? vitamin D3 (Cholecalciferol) 25 MCG (1000 UNITS) tablet 1,000 Units Skin/Wound: WNL Estimated Energy Needs: KCAL: 1770-2065kcal (30-35kca/kg (ABW)) Protein (g): 89-103g (20% of estimated kcal) Fluid (ml): 1 ml/kcal Needs based on: Kcal/kg- (Comment) (ABW: 130lb (59kg); EMR, estimated) Recommended Access Route: PO Education needed: Supplements Education Provided: Prior to Discharge Nutrition Care Process (1) Nutrition Diagnostic Statement: Malnutrition severity: : Moderate related to:: inadequate protein-energy intake as evidenced by:: BMI less than 19;loss of subcutaneous fat;loss of muscle mass Nutrition Diagnostic Statement Progress: Nutrition problem continues Nutrition Intervention: Meals and snacks:;Medical Food Supplements: Monitoring: PO intake, labs, weight, BM, and meds Evaluation: Nutrition Goal: Total intake will meet estimated nutrient needs Nutrition Goal Timeframe: Throughout stay Nutrition Goal Progress: Continue with current goal Ana Castro MS, RDN, LDN Ascom [phone] * Isamar Anderson PA-C - 12/29/2021 12:30 PM CDT EMU Progress Note Patient: Bi Tabor Age: [age] year old Admission Date and Time: 12/21/2021 Date: 12/29/2021 Chief Complaint: Seizures Progress: Bi Tabor??is a 61 year old??male??with PMH including alcohol abuse (resolved 2015), CVA (02/2015), HTN, HLD, prior head injury (from a fall?), cervical osteoarthritis, anxiety, Alzheimer's (earlyonset) and refractory epilepsy (reported onset, two weeks after his head injury), who presented to [facility] for continuous video EEG monitoring for medication adjustment and to quantify seizure burden. Patient has continued frequent seizures overnight. Code stroke called at 800. Patient was given 1mgAtivan. He was taken to CT and given additional 2mg Ativan. Patient sedated after retuning from CT.Will give AM doses of ASM via IV. ?? EEG Reading: refer to procedure note Home ASMs: Name Pill Size Frequency Total/day Level Start Levetiractam?1000 mg tab ?2 - 2 ?4,000mg/day ? Depakote DR ?500 mg tab?1 - [address] ? [address] DR ?250 mg tab?1 - 1 ?1,500mg/day Lacosamide ?200 mg tab?1??- 1 ?400mg/day? Current ASMs: 12/21/2021 Levetiracetam ?2,000mg am, 2,000mg pm Depakote ?750mg am, 750mg pm Lacosamide ?200mg am, 200mg pm ?? 12/22/2021 Lorazepam 2mg Levetiracetam ?2,000mg am, 2,000mg pm Depakote ?750mg am, 750mg pm Lacosamide ?200mg am, 200mg pm ?? 12/23/2021 Levetiracetam ?2,000mg am, 2,000mg pm Depakote ?750mg am, 750mg pm Lacosamide ?200mg am, 200mg pm Cenobamate 12.5mg pm ?? 12/24/2021 Levetiracetam ?2,000mg am, 2,000mg pm Depakote ?750mg am, 750mg pm Lacosamide ?200mg am, 200mg pm Cenobamate 12.5mg pm ?? 12/25/2021 Lorazepam 1mg am Levetiracetam ?2,000mg am, 2,000mg pm Depakote ?750mg am, 750mg pm Lacosamide ?200mg am, 200mg pm Cenobamate 12.5mg pm 12/26/2021 Levetiracetam ?2,000mg am, 2,000mg pm Depakote ?750mg am, 750mg pm Lacosamide ?200mg am, 200mg pm Cenobamate 12.5mg pm 12/27/2021 Levetiracetam ?2,000mg am, 2,000mg pm Depakote ?750mg am, 750mg pm Lacosamide ?200mg am, 200mg pm 12/28/2021 Levetiracetam ?2,000mg am Depakote ?750mg am, 750mg pm Lacosamide ?200mg am, 200mg pm Brivaracetam 100mg am, 100mg pm Methylprednisolone 1000mg IV pm 12/29/2021 Depakote ?500mg IV am, 750mg pm PO Lacosamide ?200mg IV am, 200mg pm PO Brivaracetam 200mg IV am, 200mg pm PO Ativan 3mg IV Methylprednisolone 1000mg IV AM Objective: BP 137/88 Pulse (!) 151 Temp 98.2 ??F (36.8 ??C) (Axillary) Resp 20 Ht 5' 11 (1.803 m) Wt 130 lb (59 kg) SpO2 96% Body mass index is 18.13 kg/m??. Exam: Exam: General appearance: asleep, does not respond to verbal or physical stimuli Cranial Nerves: Normal ocular alignment, No facial palsy Motor: Abnormal Movements: None Bulk: Normal Tone: Normal Labs: CBC: Recent Labs Component Name 12/29/2172012/27/2111612/21/21 1245 WBC 8.1 6.7 6.6 HGB 15.4 15.1 14.1 PLTCOUNT 123* 100* 126* BMP: Recent Labs Component Name 12/29/2172012/27/21 01112/21/21 1245 NA 140 141 144 CO2 24 22 29 CREATININE 0.86 0.89 1.00 Assessment: Bi Tabor is a 61 year old male with a medical history significant for alcohol abuse (resolved 2016), CVA, HTN, HLD, prior head injury, cervical osteoarthritis, anxiety, Alzheimer's (early onset) and refractory epilepsy admitted for continuous video EEG monitoring for further evaluation and rudy cterization of episodes. Plan: - Continuous video EEG monitoring, cardiac telemetry, and pulse oximetry. - Obtain vital signs q8h, ins/outs tid, neuro checks bid. - ASMs:?? Continue: Methylprednisolone 1000mg IV QD Continue: Depakote 500mg IV am, plan to restart 750 mg PO QHS if patient able to take oral medications Continue: Lacosamide 200mg IV am, plan to restart 200 mg PO QHS if patient able to take oral medications Increase: Brivaracetam 200mg IV am. plan to restart 200 mg PO QHS if patient able to take oral medications - Patient unable to take PO medications this morning. He did not receive home medications. Plan to Continue home medications once able to take PO -Continue treatment of HTN: amlodipine 5mg daily -Continue anti-platelet treatment: aspirin 81mg daily -Continue treatment of HLD: atorvastatin 40mg daily -Continue treatment of urinary retention: tamsulosin 0.4mg daily -Continue supplement replacement: vitamin D3 1,000 units daily -Continue treatment of chronic pain: acetaminophen Q6 hours prn, ibuprofen Q6 hours prn - Code stroke: due to reported left sided weakness per nursing staff. CT Brain stroke, and CT A brain neck stroke: No acute intracranial process. Stable. - Fall and Seizure precautions, Regular Diet, Lovenox for DVT ppx. Discussed with Attending Physician, Dr. Breanne Anderson PA-C -[facility]ile[facility] Ascom #[phone] Associated attestation - Sean Raymundo DO - 12/30/2021 4:02 PM CDT Patient seen and examined on 12/30/2021. I agree with the findings and plan as outlined in the [facility] note. Increasing seizure frequency. Discussed with sister Ofe. Will attempt to escalate seizure medications without overly sedating if possible. 25 minutes was spent in the care of this patient, of this 15 minutes were spent by me and 10 minutes by the [facility]. This time was spent reviewing the available records, coordinating the patients care with the inpatient team, and in [id number] time with the patient counseling them on the procedure for inpatient admission, the plan for the hospitalization and the goals and expectations of the EMU admission * Jayson Monreal RN - 12/29/2021 10:47 AM CDT Intervention for continued seizure activity today * Jayson Monreal RN - 12/29/2021 8:18 AM CDT Back from CT having mild facial tremor left side sedated from the ativan .. does not open eyes to touch or verbal * Jayson Monreal RN - 12/29/2021 7:37 AM CDT Left arm and leg are flaccid and left facial droop noted * Patricia Stewart RN - 12/29/2021 1:11 AM CDT Problem: Pain/Discomfort Goal: Patient exhibits [...] in the flowsheet documentation) Outcome: Progressing Problem: Seizures Goal: Seizures are under control or absent Outcome: Progressing Problem: SEIZURE EVENT MONITORING Goal: To record an episode to determine whether or not the episode is a seizure. Outcome: Progressing Problem: General Goal: STG-Patient will Description: Complete BSC transfer moderate assist Outcome: Progressing Problem: Balance Goal: LTG - Patient will maintain balance to allow for safe mobility Outcome: Progressing * Patricia Stewart RN - 12/28/2021 7:49 PM CDT 12/28/21 1945 Seizure Activity Psychomotor Symptoms Behavior pause Describe Aura none Deviation Head left;Stare Motor Component Eye;Mouth;Arm;Twitching;Staring Able to State Recall Items No Speech clear Oriented Yes Able to follow commands Yes Additional description of Seizure staring, b/l eye and mouth twitching, LUE twitching, unable to follow commands or vocalize during the seizure, returned to baseline post-itcal phase Duration of Seizure Duration 1 minute Interventions Interventions Recovery position Post Seizure Condition Post Seizure Assessment A * Jayson Monreal RN - 12/28/2021 3:39 PM CDT Has had a few events today * Michaela Perrin RN - 12/28/2021 3:01 PM CDT 12/28/21 1500 Seizure Activity Psychomotor Symptoms Behavior pause Describe Aura n/a Deviation Stare Motor Component Twitching;Face Able to State Recall Items Yes Speech clear Oriented Yes Able to follow commands Yes Additional description of Seizure staring and generalized facial twitching Duration of Seizure Duration 10 seconds Seizure Assessment Seizure Assessment (n/a) Lowest SPO2 Range % 96 Interventions Interventions Notified MD (MD at bedside) Post Seizure Condition Post Seizure Assessment A Post- Ictal (n/a) * Lori Skinner PTA - 12/28/2021 2:22 PM CDT [facility] PhysicalTherapy Progress Note Patient: [facility] Record Number: [id number] Date of : 1960 Age: [age] year old Co treat with OT Face Mask: Therapist wore a surgical mask and eye protection Discharge Recommendation: Patient will benefit from multidisciplinary inpatient therapies. Subjective: God told me not to do it . Patient is not ambulatory at this time. Mental Status: Alert to self but lethargic at times; he followed ~10% of commands. He was agreeableto PT with encouragement. At start of therapy session, patient found in bed and with bed alarm on. Pain: Patient reported pain on bottom of Left foot Follow-up for pain: No follow-up for pain indicated and patient agreed to proceed with treatment Weight Bearing Status: no restrictions Mobility: Rolling: Maximal assist of 1 Supine to Sit:Maximal assist of 2 Sit to Supine: Maximal assist of 2 Sit to Stand:not tested Bed to Chair: not tested Gait: Pt non ambulatory at this time Balance: Static Sitting: poor Dynamic sitting: not tested Static Standing: not tested Dynamic Standing: not tested Vitals: not tested due to no symptoms reported at rest and with mobility Activity Tolerance: Patient's activity tolerance: fair minus Treatment/therapeutic Exercise: Bed mobility, supine <-> sit transfer, pt sat at edge of bed ~ 3 mins then was having a seizure so returned to supine . Pt on continuous monitoring. 4 seizures witnessed lasting ~ 20 seconds each during therapy session. Pt completed AAROM bilateral LE for heel slides, hip abd/adduction, SAQ and ankle pumps 2 x 5 reps each. EDUCATION: While performing PT, Patient was instructed in:Functional mobility training/weight bearing status, Safety awareness/fall precaution and Home exercise program Patient demonstrated Questionable understanding of instructions given. GOALS: Short Term Goals: Goal Formation Patient unable to participate in goal formulation Patient will perform bed mobility with moderate assist and X 2 Patient will transfer sit to/from stand with maximal assist and X 2 Patient will transfer bed to/from chair with maximal assist and X 2 Chcf Goal(s): Patient to discharge to appropriate next level of inpatient care. Update Treatment Plan: Continue PT per POC If patient is discharged from the facility, this note serves as a discharge note if further physical therapy visits did not occur. Following therapy session, patient left in bed, with bed alarm on, with call light within reach andwith Jayson SIMON aware. * Beverly Martinez OT - 12/28/2021 2:22 PM CDT [facility] Occupational Therapy Progress Note Patient: [facility] Record Number: [id number] Date of : 1960 Age: [age] year old PPE worn by staff: mask - procedural;gloves PPE worn by patient: socks - clean;gown - patient, clean Tech: Co-tx with PT due to level of skilled assist required Discharge Recommendation: Patient will benefit from multidisciplinary inpatient therapies. PRECAUTIONS: seizure - on cEEG Fall risk SUBJECTIVE: Subjective: Pt agreeable to therapy. Family at bedside. Pt has four witnessed seizures during session lasting ~20 sec each, with L side facial twitching and nystagmus. Increased LUE tone follow episodes. Appears to be induced with movement. Pain Assessment: Pain Rating Score #: 0 Follow-up for pain: No follow-up for pain indicated and patient agreed to proceed with treatment OBJECTIVE: At start of therapy session, patient found in bed and with bed alarm on General Appearance: Resting in bed talking to family, NAD LDA: IV's: Peripheral line Vitals: (*Assess the 3 levels of oxygen saturations both for room air and 02 unless rest on room air is 88% or less). Rest BP: HR: Sp02 Sp02 Room Air L O2 Ex/Gait/Activity Without 02 BP: HR: Sp02 Room Air Ex/Gait/Activity With 02 BP: HR: Sp02 L O2 Post Activity BP: HR: Sp02 Sp02 L O2 Room Air Observations: VSS with activity. No c/o dizziness/dyspnea. Mental Status/Cognition: Level of Consciousness-Adult: (alertness wax/wanes, consistent cues required to maintain alert state.) Orientation Level: Disoriented to Person;Disoriented to Place Cognition: Safety awareness-decreased;Follows one step commands (10% command following) Attention Span: Difficulty attending to directions Mobility: a gait belt and non-slip socks were used for all out of bed activity this date. Bed Mobility: Supine to Sit: Maximum Assistance;X 2 with HOB flat Sit to Supine: Maximum Assistance;X 2 Transfers: Sit to Stand: Activity Does Not Occur (Pt began having seizure while seated EOB, thus returned to supine) Bed to Chair: Activity Does Not Occur Functional Ambulation: Functional mobility of ambulation to sink/bathroom: activity does not occur Balance: Balance Scales/Tests Used: Sitting: Static/Dynamic Sitting - Static: Fair Sitting - Dynamic: Not tested Comments: Total sitting time ~30 sec prior to seizure onset. Activities of Daily Living: Feeding: Activity Does Not Occur Oral Facial Hygiene: Maximal Assistance (hand over hand assit to use LUE) while in supine Bathing: Activity Does Not Occur Upper Body Dressing: Activity Does Not Occur Lower Body Dressing: Activity Does Not Occur Toileting: Activity Does Not Occur Splint Issued/Checked: none ACTIVITY TOLERANCE: Patient's activity tolerance: not tested Modified [place]: TREATMENT/INTERVENTIONS: ADL training Functional transfer training HEP training Pt completes BUE shoulder flex/ext and reaching from supine position. PROM applied with gentle end range stretch applied to LUE due to increased tone. EDUCATION: While performing OT, Patient was instructed in:functional mobility training, cognitive retraining Presented to patient who demonstrates Poor understanding [...] and with minimal assist Patient will perform upper extremity dressing with minimal assist Patient will perform toileting with moderate assist Patient will transfer to bedside commode with moderate assist Patient will perform supine to/from sit with minimal assist ?? Filling Separator Goal(s): Patient to discharge to appropriate next level of inpatient care. Plan: Continue OT POC If patient is discharged from the facility, this note serves as a discharge summary if further occupational therapy visits did not occur. Refer to filed flowsheet for further details. Following therapy session, patient left in bed, with bed alarm on , with call light within reach, with Jayson SIMON aware, and all bedrails engaged per seizure protocol. . * Angelina Gould MSW - 12/28/2021 10:25 AM CDT SW notified by installation manager that patient now has recs for SNF from PT/OT. Per chart review, patient has [facility] which will not allow for therapy in SNF. ASHWIN sent referral to Radha/DONALDO to review. CLARITA Guzman 12/28/2021 [phone] * Yana Rm, CODING CLERK-DIRECTOR OF SPECIAL EDUCATION - 12/28/2021 9:10 AM CDT EMU Progress Note Patient: Bi Tabor Age: [age] year old Admission Date and Time: 12/21/2021 Date: 12/28/2021 Chief Complaint: Seizures Progress: Bi Tabor??is a 61 year old??male??with PMH including alcohol abuse (resolved 2015), CVA (02/2015), HTN, HLD, prior head injury (from a fall?), cervical osteoarthritis, anxiety, Alzheimer's (earlyonset) and refractory epilepsy (reported onset, two weeks after his head injury), who presented to [facility] for continuous video EEG monitoring for medication adjustment and to quantify seizure burden. ?? No reported events over night. Slight fever of 100.2 overnight, will obtain UA today. Spoke to sister Ofe, will plan to keep patient in EMU for rapid medication change at this time. EEG Reading: refer to procedure note Home ASMs: Name Pill Size Frequency Total/day Level Start Levetiractam?1000 mg tab ?2 - 2 ?4,000mg/day ? Depakote DR ?500 mg tab?1 - 1 ? Dep[address]ote DR ?250 mg tab?1 - 1 ?1,500mg/day Lacosamide ?200 mg tab?1??- 1 ?400mg/day? Current ASMs: 12/21/2021 Levetiracetam ?2,000mg am, 2,000mg pm Depakote ?750mg am, 750mg pm Lacosamide ?200mg am, 200mg pm ?? 12/22/2021 Lorazepam 2mg Levetiracetam ?2,000mg am, 2,000mg pm Depakote ?750mg am, 750mg pm Lacosamide ?200mg am, 200mg pm ?? 12/23/2021 Levetiracetam ?2,000mg am, 2,000mg pm Depakote ?750mg am, 750mg pm Lacosamide ?200mg am, 200mg pm Cenobamate 12.5mg pm ?? 12/24/2021 Levetiracetam ?2,000mg am, 2,000mg pm Depakote ?750mg am, 750mg pm Lacosamide ?200mg am, 200mg pm Cenobamate 12.5mg pm ?? 12/25/2021 Lorazepam 1mg am Levetiracetam ?2,000mg am, 2,000mg pm Depakote ?750mg am, 750mg pm Lacosamide ?200mg am, 200mg pm Cenobamate 12.5mg pm 12/26/2021 Levetiracetam ?2,000mg am, 2,000mg pm Depakote ?750mg am, 750mg pm Lacosamide ?200mg am, 200mg pm Cenobamate 12.5mg pm 12/27/2021 Levetiracetam ?2,000mg am, 2,000mg pm Depakote ?750mg am, 750mg pm Lacosamide ?200mg am, 200mg pm 12/28/2021 Levetiracetam ?2,000mg am Depakote ?750mg am, 750mg pm Lacosamide ?200mg am, 200mg pm Brivaracetam 100mg am, 100mg pm Review of Systems General Negative except per HPI Eyes Negative except per HPI ENT Negative except per HPI Pulmonary Negative except per HPI Cardiac Negative except per HPI GI Negative except per HPI Negative except per HPI Neurologic Per HPI Psychiatric Negative except per HPI Skeletal Negative except per HPI Endocrine Negative except per HPI Infectious Negative except per HPI Objective: BP 122/82 Pulse 84 Temp 97.8 ??F (36.6 ??C) (Oral) Resp 18 Ht 5' 11 (1.803 m) Wt 130 lb (59 kg) SpO2 98% Body mass index is 18.13 kg/m??. Exam: Exam: General appearance: Awake, no distress Cortical Function: MS: Awake, , Follows Commands Oriented to Person, Place disoriented to time Language: Coherent, some delayed responses Cranial Nerves: Normal ocular alignment, No facial palsy Motor: Abnormal Movements: None Bulk: Normal Tone: Normal Strength: 4/5 LUE & LLE Labs: CBC: Recent Labs Component Name 12/27/21 0117 12/21/21 1245 05/01/21 2159 WBC 6.7 6.6 5.4 HGB 15.1 14.1 13.5 PLTCOUNT 100* 126* 164 BMP: Recent Labs Component Name 12/27/21 0117 12/21/21 1245 05/01/21 2159 NA 141 144 143 CO2 22 29 24 CREATININE 0.89 1.00 0.79 Assessment: Bi Tabor is a 61 year old male with a medical history significant for alcohol abuse (resolved 2015), CVA, HTN, HLD, prior head injury, cervical osteoarthritis, anxiety, Alzheimer's (early onset) and refractory epilepsy admitted for continuous video EEG monitoring for further evaluation and rudy cterization of episodes. Plan: - Restart, continuous video EEG monitoring, cardiac telemetry, and pulse oximetry. - Obtain vital signs q8h, ins/outs tid, neuro checks bid. - ASMs:?? Continue: Depakote 750mg BID Continue: Lacosamide 200mg BID Discontinue: Levetiracetam 2,000mg BID Start: Brivaracetam 100mg BID -Continue treatment of HTN: amlodipine 5mg daily -Continue anti-platelet treatment: aspirin 81mg daily -Continue treatment of HLD: atorvastatin 40mg daily -Continue treatment of urinary retention: tamsulosin 0.4mg daily -Continue supplement replacement: vitamin D3 1,000 units daily -Continue treatment of chronic pain: acetaminophen Q6 hours prn, ibuprofen Q6 hours prn - Fall and Seizure precautions, Regular Diet, Lovenox for DVT ppx. Discussed with Attending Physician, Dr. Breanne Rm, CODING CLERK-DIRECTOR OF SPECIAL EDUCATION -[id number] Associated attestation - Sean Raymundo DO - 12/28/2021 11:07 PM CDT Patient seen and examined on 12/28/2021. I agree with the findings and plan as outlined in the [facility] note. Continue PT/OT, up to chair TID, discussed care again with family today. Will attempt to make rapidmedication change under EEG monitoring to attempt to improve seizures. Change LEV 2000 mg BID to Briviact 100 mg BID today. Will also attempt to collect UA given possible worsening of seizure controlwithout clear cause. 25 minutes was spent in the care of this patient, of this 15 minutes were spent by me and 10 minutes by the DEMETRA. This time was spent reviewing the available records, coordinating the patients care with the inpatient team, and in [id number] time with the patient counseling them on the procedure for inpatient admission, the plan for the hospitalization and the goals and expectations of the EMU admission Increased frequency of seizures on cEEG review relative to earlier study. No clear cause of increased seizures. No evidence of infection. Will start IV methylprednisolone 1 gram per day to try to treat current exacerbation of seizures. * Christen Ramos, OT - 12/27/2021 12:52 PM CDT [facility] Occupational Therapy Initial Evaluation Note Patient: [facility] Record Number: [id number] Date of : 1960 Age: [age] year old PPE worn by staff: mask - procedural;gloves Tech: Not present Co-eval with PT due to unknown level assist Discharge Recommendation: Patient will benefit from [...] plan. Physician Orders: Evaluation and Treat Activity Level:ambulate/up ad daniela PRECAUTIONS: seizure DIAGNOSIS: Patient Active Problem List: Seizure Headache, unspecified headache type Hyponatremia Anxiety Cerebrovascular accident Hyperlipidemia Hypertension Insomnia Low back pain Osteoporosis Truncal ataxia Therapeutic procedure Seizures Alcohol abuse, uncomplicated Benign neoplasm of prostate Epilepsy, unspecified, not intractable, without status epilepticus Difficulty in walking, not elsewhere classified Muscle weakness (generalized) Other specified rheumatoid arthritis, unspecified site Syncope and collapse Alzheimer's disease with early onset Cognitive communication deficit COVID-19 Dysphagia, oropharyngeal phase 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 CVA (cerebral vascular accident) ??? HTN (hypertension) ??? Seizure SUBJECTIVE: Pt agrees to work with therapy. Hx obtained from pt's sister due to pt with impaired mental status.Therapist spoke with pt's sister on the phone, sister reports pt discharged from senior care in Jun 2021 and has been living alone since. Home Situation: Type of Residence: Apartment Lives with:: Alone Steps to Enter: No Home Structure: One Story Primary Bedroom: First Floor Primary Bathroom: First Floor Bathroom : Tub/Shower Combo Equipment At Home: Walker-4 Wheeled with Seat;Commode-Bedside;Wheelchair-Standard;Chair-Shower;LifeLine Button Prior Level of Functioning: Mobility: tansfers to w/c independently; propels w/c independently throughout apartment; currently working on walking with w/w in outpatient PT Fallen Within 6 Mos: daughter reports she is not aware of pt having any falls since Jun 2021 Have Help at Home?: Yes, there is help at home now Who assists you at home?: Family Care Agency;[employer]rap [employer] How often is assistance provided?: emergency worker services 3 days/wk 4 hrs/day. Family members come by pt's apartment 1-2 times a day. Per sister since Jun of this year pt has been independent with toileting, grooming and dressing; family or choreworker assist with bathing and all IADLs. Oxygen at Home: No Activity at Home: Sedentary Who manages medications?: family Pain Assessment: Pain Rating Score #: 5 Pain Location : Head Follow-up for pain: Yes, informed nurse/physician about pain issue and patient agreed to proceed with treatment OBJECTIVE: At start of therapy session, patient found in bed and with bed alarm on General Appearance: 61 yo male supine, NAD LDA: n/a Edema: No edema noted Vitals: (*Assess the 3 levels of oxygen saturations both for room air and 02 unless rest on room air is 88% or less). Rest BP: 128/82 HR: 95 Sp02 Sp02 97 Room Air Post Activity BP: 121/99 HR: 92 Sp02 Sp02 97 L O2 Room Air Observations: displays no s/s of distress throughout session Mental Status/Cognition: Orientation Level: Oriented to Person;Oriented to Place;Disoriented to Situation;Oriented to Time Cognition: Follows Commands-inconsistent;Memory impairment-short term;Memory impairment-assistant terminal manager;Safety awareness-decreased;Judgement-decreased;Processing-delayed;Follows one step commands ~75% of the time; displays poor attention to task; provides minimal verbal communication UE ROM: RUE: AROM WFL LUE: Deficits noted; observed 1/2 shoulder flexion and elbow flexion; displays no attempt to surveillance supervisor therapist's hand with max verbal/tactile prompting; testing limited due to cognitive deficits Strength: RUE: WNL LUE: deficits noted; unable to formally test due to cognitive deficits UE Tone RUE: no abnormal tone noted LUE: extensor tone Coordination: unable to formally assess due to cognitive deficits; L UE deficits noted per observation UE Proprioception RUE: WFL LUE: Absent UE Sensation RUE: no complaints of numbness or tingling LUE: no complaints of numbness or tingling Perception: Inattention/Neglect: Cues to attend left visual field;Cues to attend to left side of body;Cues to maintain midline in sitting; displays R side head preference and gaze, achieves midline temporarily with max prompting Visual/Motor Tracking: Unable to test secondary due to decreased visual attention Saccades: Unable to test secondary to decreased visual attention Convergence: Unable to test secondary due to decreased visual attention Visual Ivan: Unable to test secondary due to decreased visual attention Acuity: unable to read time on pt info screen on wall Mobility: A gait belt and non-slip socks were used for all out of bed activity this date. Bed Mobility: Rolling: Maximal Assistance to Left Supine to Sit: Maximum Assistance;X 2 with HOB in semi-fowlers position Sit to Supine: Maximum Assistance;X 2 Pt sat EOB 4-5 minutes requiring max assist to maintain static sitting balance, demonstrates significant retropulsive posture and does not elicit attempt to correct with max prompting. Unable to attempt sit to stand or transfer due to poor sitting balance. Transfers: Sit to Stand: Activity Does Not Occur Stand to Sit: Activity Does Not Occur Functional Ambulation: Functional mobility of ambulation to sink/bathroom: pt is nonambulatory at this time Balance: Balance Scales/Tests Used: Sitting: Static/Dynamic Sitting - Static: Poor Sitting - Dynamic: Not tested Activities of Daily Living: (per observation and clinical judgement) Feeding: Set-up to bring cup to mouth using R UE in semi fowlers position Oral Facial Hygiene: Maximal Assistance for sitting balance to attempt face wash EOB Bathing: Maximal Assistance Upper Body Dressing: Total Assistance to doff and don gown Lower Body Dressing: Total Assistance don socks Toileting: Total Assistance; presents incontinent of urine upon arrival, total assist to manage soiled pads at bed level Splint Issued/Checked: none ACTIVITY TOLERANCE: Patient's activity tolerance: fair minus Modified [place]: 5 TREATMENT / EDUCATION / INTERVENTIONS: While performing OT, Patient was instructed in:functional mobility training, self-care training, cognitive retraining, safety awareness/fall precautions , discharge planning, use [...] decreased coordination and decreased visual motor skills. Short Term Goals: Goal Formation With patient Cognition: 1 step commands and 100% of the time Patient will perform grooming at edge of bed and with minimal assist Patient will perform upper extremity dressing with minimal assist Patient will perform toileting with moderate assist Patient will transfer to bedside commode with moderate assist Patient will perform supine to/from sit with minimal assist Chcf Goal(s): Patient to discharge to appropriate next level of inpatient care. Plan: Plan: ADL training Adaptive equipment training Cognitive retraining Functional transfer training Functional balance training Endurance training Bed mobility training Safety awareness Home exercise program training Coordination exercises If patient is discharged from the facility, this note serves as a discharge summary if further occupational therapy visits did not occur. Refer to filed flowsheet for further details. Following therapy session, patient left in bed, with bed alarm on , with call light within reach, with Trista SIMON aware. * Carlos Soares MD - 12/27/2021 10:07 AM CDT EMU Progress Note Patient: Bi Tabor Age: [age] year old Admission Date and Time: 12/21/2021 Date: 12/27/2021 Chief Complaint: Seizures Progress: Bi Tabor is a 61 year old male with PMH including alcohol abuse (resolved 2015), CVA (02/2015),HTN, HLD, prior head injury (from a fall?), cervical osteoarthritis, anxiety, Alzheimer's (early onset) and refractory epilepsy (reported onset, two weeks after his head injury), who presented to [facility] continuous video EEG monitoring for medication adjustment and to quantify seizure burden. Patient was going to be discharged on 12/26/2021 however had seizure (episode was noted as jerking of left arm and lip smacking and lasted few secs). He was not given any abortive as self resolved within few seconds. Patient drowsy and decidsion was made to not discharge and observe for 2 more days.Continue patient on current ASM regimen, plan for discharge on 12/28/21 if patient stable. Interval events: Patient had no events overnight. Cenobamate discontinued. Will continue to observe with continuous video EEG monitoring. EEG Reading: refer to procedure note Home ASMs: Name Pill Size Frequency Total/day Levetiractam?1000 mg tab ?2 - 2 ?4,000mg/day ? Depakote DR ? 500 mg tab?1 - 1 ? Depakote DR ?250 mg tab?1 - 1 ?1,500mg/day Lacosamide ?200 mg tab?1??- 1 ?400mg/day? Current ASMs: 12/21/2021 Levetiracetam 2,000mg am, 2,000mg pm Depakote 750mg am, 750mg pm Lacosamide 200mg am, 200mg pm 12/22/2021 Lorazepam 2mg Levetiracetam 2,000mg am, 2,000mg pm Depakote 750mg am, 750mg pm Lacosamide 200mg am, 200mg pm 12/23/2021 Levetiracetam 2,000mg am, 2,000mg pm Depakote 750mg am, 750mg pm Lacosamide 200mg am, 200mg pm Cenobamate 12.5mg pm 12/24/2021 Levetiracetam 2,000mg am, 2,000mg pm Depakote 750mg am, 750mg pm Lacosamide 200mg am, 200mg pm Cenobamate 12.5mg pm 12/25/2021 Lorazepam 1mg am Levetiracetam 2,000mg am, 2,000mg pm Depakote 750mg am, 750mg pm Lacosamide 200mg am, 200mg pm Cenobamate 12.5mg pm 12/26/2021 Lorazepam 1mg am Levetiracetam 2,000mg am, 2,000mg pm Depakote 750mg am, 750mg pm Lacosamide 200mg am, 200mg pm Cenobamate 12.5mg pm Review of Systems General Negative except per HPI Eyes Negative except per HPI ENT Negative except per HPI Pulmonary Negative except per HPI Cardiac Negative except per HPI GI Negative except per HPI Negative except per HPI Neurologic Per HPI Psychiatric Negative except per HPI Skeletal Negative except per HPI Endocrine Negative except per HPI Infectious Negative except per HPI Objective: BP 136/71 Pulse 96 Temp 99.6 ??F (37.6 ??C) (Oral) Resp 18 Ht 5' 11 (1.803 m) Wt 130 lb (59 kg) SpO2 98% Body mass index is 18.13 kg/m??. Exam: General appearance: NAD Cortical Function: MS: Awake, drowsy, Follows Commands Oriented to Person, Place and Disoriented to time Language: Garbled, Coherent, Repetition Intact Cranial Nerves: Normal ocular alignment, No facial palsy Motor: Abnormal Movements: None Bulk: Normal Tone: Normal Strength: 4/5 on LUE & LLE (patient develops post-ictal weakness to left side at baseline) Labs: Valproic acid level: 84 ug/mL (12/21/21) Levetiracetam level: 66 ug/ml (12/21/21) Lacosamide level: 10 ug/ml (12/21/21) CBC: Recent Labs Component Name 12/27/21 0117 12/21/21 1245 05/01/21 2159 WBC 6.7 6.6 5.4 HGB 15.1 14.1 13.5 PLTCOUNT 100* 126* 164 BMP: Recent Labs Component Name 12/27/21 0117 12/21/21 1245 05/01/21 2159 NA 141 144 143 CO2 22 29 24 CREATININE 0.89 1.00 0.79 Assessment: Bi Tabor is a 61 year old male with a medical history significant for alcohol abuse (resolved 2015), CVA, HTN, HLD, prior head injury, cervical osteoarthritis, anxiety, Alzheimer's (early onset) and refractory epilepsy admitted for continuous video EEG monitoring for further evaluation and rudy cterization of episodes. Plan: - Continuous video EEG monitoring, cardiac telemetry, and pulse oximetry. -Plan discharge on 12/28/21 - Obtain vital signs q8h, ins/outs tid, neuro checks bid. - Continue ASMs: levetiracetam 2,000mg BID, Depakote 750mg BID, lacosamide 200mg BID - Cenobamate discontinued -Continue treatment of HTN: amlodipine 5mg daily -Continue anti-platelet treatment: aspirin 81mg daily -Continue treatment of HLD: atorvastatin 40mg daily -Continue treatment of urinary retention: tamsulosin 0.4mg daily -Continue supplement replacement: vitamin D3 1,000 units daily -Continue treatment of chronic pain: acetaminophen Q6 hours prn, ibuprofen Q6 hours prn - Fall and Seizure precautions, Regular Diet, Lovenox for DVT ppx. ?? Discussed with Attending Physician Dr. Raymundo. Carlos Soares MD PGY2 Neurology Resident Associated attestation - Sean Raymundo DO - 12/27/2021 11:02 PM CDT Patient seen and examined on 12/27/2021. I agree with the findings and plan as outlined in the trainee note. Will plan for PT/OT and continued seizure precautions. Patient's sister feels seizures are worse since admission. Only change is new medication (cenobamate 12.5 mg). We will discontinue today and reassess tomorrow for possible discharge. * Sole Saravia, PT - 12/27/2021 10:00 AM CDT [facility] Physical Medicine and Rehabilitation Physical Therapy Initial Evaluation Note Patient: Bi Tabor [facility] Record Number: [id number] Date of : 1960 Age: [age] year old PPE worn by staff: mask - procedural;gloves Co-eval with OT due to unknown functional status Discharge Recommendation: Patient will benefit from multidisciplinary [...] (no restriction) Activity Level: Up ad daniela DIAGNOSIS: Patient Active Problem List: Seizure Headache, unspecified headache type Hyponatremia Anxiety Cerebrovascular accident Hyperlipidemia Hypertension Insomnia Low back pain Osteoporosis Truncal ataxia Therapeutic procedure Seizures Alcohol abuse, uncomplicated Benign neoplasm of prostate Epilepsy, unspecified, not intractable, without status epilepticus Difficulty in walking, not elsewhere classified Muscle weakness (generalized) Other specified rheumatoid arthritis, unspecified site Syncope and collapse Alzheimer's disease with early onset Cognitive communication deficit COVID-19 Dysphagia, oropharyngeal phase 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 CVA (cerebral vascular accident) ??? HTN (hypertension) ??? Seizure SUBJECTIVE: Subjective: I'm cold PATIENT GOALS: Home Situation: Type of Residence: Apartment (pt states he lives in a facility, pt is poor historian; collateral info from pt's sister, Ofe.) Lives with:: Alone Steps to Enter: No (elevator access) Home Structure: One Story Primary Bedroom: First Floor Primary Bathroom: First Floor Bathroom : Tub/Shower Combo Equipment At Home: Walker-4 Wheeled with Seat;Wheelchair-Standard;Life Line Button;Chair-Shower Prior Level of Functioning: Mobility: Transfers Only;Wheelchair Bound (can walk little bit with help per pt; futher info provided by pt's sister) Fallen Within 6 Mos: (none since jun 2021 per sister) Have Help at Home?: Yes, there is help at home now Who assists you at home?: Scrap Dealer (3x/wk) How often is assistance provided?: 3x/wk Level of Help Sufficient?: (not at current level of function) Oxygen at Home: No Activity at Home: W/C Bound (but family takes pt to OP PT for gait training) Pain Assessment: Pain Rating Score #: 5 Pain Location : Head Follow-up for pain: Yes, informed nurse/physician about pain issue and patient agreed to proceed with treatment OBJECTIVE: At start of therapy session, patient found in bed and with bed alarm on General Appearance: pt in no distress on room air, incontinent of urine LDAs: IV's: Peripheral line Vitals: (*Assess the 3 levels of oxygen saturations both for room air and 02 unless rest on room air is 88% or less). Rest BP: 128/82 HR: 95 Sp02 97 Room Air Post Activity BP: 121/99 HR: 92 Sp02 97 Room Air Observations: pt in no distress Mental Status/Cognition: Level of Consciousness-Adult: Alert;Eyes Open Spontaneously Orientation Level: Disoriented to Situation;Oriented to Person;Oriented to Place;Oriented to Time Cognition: Follows Commands-inconsistent;Processing-delayed;Attention/concentration-decreased;Hot Dog Vendor ment-decreased;Safety awareness-decreased (left side neglect) Attention Span: (left side neglect) Following Commands: Follows one step commands with increased time (<50%) Safety Judgement: Decreased awareness of need for safety ROM: RLE: AROM WFL LLE: PROM WFL except left ankle DF unable past neutral Strength: RLE:at least 2/5 in bed LLE: grossly 2-/5 in bed except ankle DF/PF 0/5 Tone: RLE: no abnormal tone noted LLE: extensor tone Coordination: RLE: not tested LLE: not tested Sensation: RLE: intact to pain LLE: intact to pain Mobility: A gait belt and non-slip socks were used for all out of bed activity this date. Bed Mobility: Rolling: Maximal Assistance to Right;Maximal Assistance to Left Supine to Sit: Maximum Assistance;X 2 with HOB in semi-fowlers position Sit to Supine: Maximum Assistance;X 2 Transfers: Sit to Stand: Activity Does Not Occur (poor sitting balance with extensor tone) Stand to Sit: Activity Does Not Occur Balance: Balance Scales/Tests Used: Sitting: Static/Dynamic Sitting - Static: Poor Sitting - Dynamic: Poor extensor tone in sitting requiring maximal assist for balance and upright posture with knees blocked; heavy posterior and right side lean ACTIVITY TOLERANCE: Patient's activity tolerance: poor TREATMENT/INTERVENTIONS: evaluation, monitoring of vitals and bed positioning EDUCATION: Patient not appropriate for education at this time secondary to mental status. INFORMED CONSENT TO TREATMENT: Plan of care not given secondary to impaired cognition ASSESSMENT: Patient would benefit from additional Physical Therapy sessions to achieve the following functionalgoals to enhance independence. Short Term Goals: Goal Formation Patient unable to participate in goal formulation Patient will perform bed mobility with moderate assist and X 2 Patient will transfer sit to/from stand with maximal assist and X 2 Patient will transfer bed to/from chair with maximal assist and X 2 Chcf Goal(s): Patient to discharge to appropriate next level of inpatient care. Equipment Issued: none Plan: Plan: Transfer training Bed mobility training Balance training Safety awareness If patient is discharged from the facility, this note serves as a discharge summary if further physical therapy visits did not occur. Refer to filed flowsheet for further details. Following therapy session, patient left in bed, with bed alarm on , with call light within reach, needs in reach, seizure pads in place, head of bed elevated as per precautions. * Myra Angeles RN - 12/27/2021 12:15 AM CDT 12/26/21 2350 Seizure Activity Deviation Eyes left;Head left Motor Component Left;Twitching;Mouth Speech clear Additional description of Seizure (left hand and mouth continue to twitch. MD aware) Duration of Seizure Duration 2 min Seizure Assessment Seizure Assessment Tachycardia Lowest SPO2 Range % 96 Interventions Interventions Notified MD Post Seizure Condition Post Seizure Assessment CF Post- Ictal LUE weakness;LLE weakness MD called to beside.Patient HR was 160 during 2 min GTC. Patient VSS. Will continue to monitor. * Lucien Butler MD - 12/26/2021 9:16 PM CDT Event note: Was called by the nurse for evaluation of seizures. Immediately reached the bedside. Patient was having focal seizure with shaking of his left hand. He was responding to questions. Witnessed 3 seizures. First 2 were focal seizures in the left hand and third one was a GTC which lasted 2 minutes. Called and informed the attending physician Dr Raymundo. Lana craig at this time. Signed: Lucien Butler MD PGY2, Neurology * Faby Hawkins MD - 12/26/2021 4:27 PM CDT EMU Progress Note Patient: Bi Tabor Age: [age] year old Admission Date and Time: 12/21/2021 Date: 12/26/2021 Chief Complaint: Seizures Progress: Bi Tabor is a 61 year old male with PMH including alcohol abuse (resolved 2015), CVA (02/2015),HTN, HLD, prior head injury (from a fall?), cervical osteoarthritis, anxiety, Alzheimer's (early onset) and refractory epilepsy (reported onset, two weeks after his head injury), who presented to [facility] continuous video EEG monitoring for medication adjustment and to quantify seizure burden. Patient had no events overnight and was going to be discharged however had seizure (episode was noted as jerking of left arm and lip smacking and lasted few secs). He was not given any abortive as self resolved within few seconds. Patient drowsy and decidsion was made to not discharge and observe for one more day. Continue patient on current ASM regimen, plan for discharge on 12/27/21 if patient stable. EEG Reading: refer to procedure note Home ASMs: Name Pill Size Frequency Total/day Levetiractam?1000 mg tab ?2 - 2 ?4,000mg/day ? Depakote DR ? 500 mg tab?1 - [address] ? [address] ?250 mg tab?1 - 1 ?1,500mg/day Lacosamide ?200 mg tab?1??- 1 ?400mg/day? Current ASMs: 12/21/2021 Levetiracetam 2,000mg am, 2,000mg pm Depakote 750mg am, 750mg pm Lacosamide 200mg am, 200mg pm 12/22/2021 Lorazepam 2mg Levetiracetam 2,000mg am, 2,000mg pm Depakote 750mg am, 750mg pm Lacosamide 200mg am, 200mg pm 12/23/2021 Levetiracetam 2,000mg am, 2,000mg pm Depakote 750mg am, 750mg pm Lacosamide 200mg am, 200mg pm Cenobamate 12.5mg pm 12/24/2021 Levetiracetam 2,000mg am, 2,000mg pm Depakote 750mg am, 750mg pm Lacosamide 200mg am, 200mg pm Cenobamate 12.5mg pm 12/25/2021 Lorazepam 1mg am Levetiracetam 2,000mg am, 2,000mg pm Depakote 750mg am, 750mg pm Lacosamide 200mg am, 200mg pm Cenobamate 12.5mg pm 12/26/2021 Lorazepam 1mg am Levetiracetam 2,000mg am, 2,000mg pm Depakote 750mg am, 750mg pm Lacosamide 200mg am, 200mg pm Cenobamate 12.5mg pm Review of Systems General Negative except per HPI Eyes Negative except per HPI ENT Negative except per HPI Pulmonary Negative except per HPI Cardiac Negative except per HPI GI Negative except per HPI Negative except per HPI Neurologic Per HPI Psychiatric Negative except per HPI Skeletal Negative except per HPI Endocrine Negative except per HPI Infectious Negative except per HPI Objective: BP 122/80 Pulse 64 Temp 97.1 ??F (36.2 ??C) (Oral) Resp 18 Ht 5' 11 (1.803 m) Wt 130 lb (59 kg) SpO2 100% Body mass index is 18.13 kg/m??. Exam: Exam: General appearance: Awake, drowsy, no distress Cortical Function: MS: Awake, drowsy, Follows Commands Oriented to Person, Place and Disoriented to time Language: Garbled, Coherent, Repetition Intact Cranial Nerves: Normal ocular alignment, No facial palsy Motor: Abnormal Movements: None Bulk: Normal Tone: Normal Strength: 4/5 on LUE & LLE (patient develops post-ictal weakness to left side at baseline) Labs: Valproic acid level: 84 ug/mL (12/21/21) Levetiracetam level: 66 ug/ml (12/21/21) Lacosamide level: 10 ug/ml (12/21/21) CBC: Recent Labs Component Name 12/21/21 1245 05/01/219 02/25/21 1135 WBC 6.6 5.4 6.4 HGB 14.1 13.5 14.7 PLTCOUNT 126* 164 139* BMP: Recent Labs Component Name 12/21/21 1245 05/01/219 02/25/21 1212 NA 144 143 140 CO2 29 24 23 CREATININE 1.00 0.79 0.83 Assessment: Bi Tabor is a 61 year old male with a medical history significant for alcohol abuse (resolved 2015), CVA, HTN, HLD, prior head injury, cervical osteoarthritis, anxiety, Alzheimer's (early onset) and refractory epilepsy admitted for continuous video EEG monitoring for further evaluation and rudy cterization of episodes. Plan: - Continuous video EEG monitoring, cardiac telemetry, and pulse oximetry. -Plan discharge on 12/27/21 - Obtain vital signs q8h, ins/outs tid, neuro checks bid. - Continue ASMs: levetiracetam 2,000mg BID, Depakote 750mg BID, lacosamide 200mg BID, cenobamate 12.5mg nightly -Continue treatment of HTN: amlodipine 5mg daily -Continue anti-platelet treatment: aspirin 81mg daily -Continue treatment of HLD: atorvastatin 40mg daily -Continue treatment of urinary retention: tamsulosin 0.4mg daily -Continue supplement replacement: vitamin D3 1,000 units daily -Continue treatment of chronic pain: acetaminophen Q6 hours prn, ibuprofen Q6 hours prn - Fall and Seizure precautions, Regular Diet, Lovenox for DVT ppx. ?? Discussed with Attending Physician Dr. Raymundo. Faby Hawkins MD Associated attestation - Sean Raymundo DO - 12/26/2021 8:47 PM CDT Patient seen and examined on 12/26/2021. I agree with the findings and plan as outlined in the trainee note. Patient planned for discharge today, but had seizures around time of discharge preventing ambulation to home. Will plan for PT/OT and continued seizure precautions. * Lucien Butler MD - 12/26/2021 2:07 PM CDT PLAN OF CARE Got a call from nurse about patient having seizures. Reached beside, patient was out of seizures. Another episode was noted when he had jerking of left arm and lip smacking. Lasted few secs. Called and informed Dr Raymundo. Family is not comfortable about patient being discharged as he lives by himself. Will monitor patient for another day. No benzos at this time. Signed: Lucien Butler MD PGY2, Neurology * Qian Spangler RN - 12/26/2021 11:51 AM CDT Problem: Pain/Discomfort Goal: Patient exhibits reduced pain/discomfort as evidenced by pain scores Outcome: Progressing * Niyah Lea RN - 12/25/2021 7:13 PM CDT Patient's sister took home meds from pharmacy, [facility], [place] with her * Jose M Gomez RN - 12/25/2021 3:06 PM CDT Case Management Progress Note Anticipated level of care at discharge: Home Discharge Plan: Patient remains on EMU monitoring. Will likely discharge home when monitoring is completed. Basic Needs Assessment (BNA) Score: Anticipated Discharge Date: Anticipated Discharge Date: 12/25/21 Patient/Family provided with list of resources? Unknown Preferred Provider / High Quality Network List given?: Unknown Reason for provider choice: Unknown Transportation at Discharge: Family Follow Up Appointment: Transportation to MD:Family Equipment at Home: Equipment At Home: Walker-4 Wheeled with Seat List DME patient requires but does not [...] Transportation: Name: Jose M Gomez RN Phone: [phone] * Yana Rm, CODING CLERK-DIRECTOR OF SPECIAL EDUCATION - 12/25/2021 11:59 AM CDT EMU Progress Note Patient: Bi Tabor Age: [age] year old Admission Date and Time: 12/21/2021 Date: 12/25/2021 Chief Complaint: Seizures Progress: Bi Tabor is a 61 year old male with PMH including alcohol abuse (resolved 2015), CVA (02/2015),HTN, HLD, prior head injury (from a fall?), cervical osteoarthritis, anxiety, Alzheimer's (early onset) and refractory epilepsy (reported onset, two weeks after his head injury), who presented to [facility] continuous video EEG monitoring for medication adjustment and to quantify seizure burden. Several reported seizure events over night, 1mg of ativan given x 1. Patient more drowsy today. Continue patient on current ASM regimen, plan for discharge on 12/26/21 if patient stable. EEG Reading: refer to procedure note Home ASMs: Name Pill Size Frequency Total/day Levetiractam?1000 mg tab ?2 - 2 ?4,000mg/day ? Depakote DR ? 500 mg tab?1 - [address] ?250 mg tab?1 - 1 ?1,500mg/day Lacosamide ?200 mg tab?1??- 1 ?400mg/day? Current ASMs: 12/21/2021 Levetiracetam 2,000mg am, 2,000mg pm Depakote 750mg am, 750mg pm Lacosamide 200mg am, 200mg pm 12/22/2021 Lorazepam 2mg Levetiracetam 2,000mg am, 2,000mg pm Depakote 750mg am, 750mg pm Lacosamide 200mg am, 200mg pm 12/23/2021 Levetiracetam 2,000mg am, 2,000mg pm Depakote 750mg am, 750mg pm Lacosamide 200mg am, 200mg pm Cenobamate 12.5mg pm 12/24/2021 Levetiracetam 2,000mg am, 2,000mg pm Depakote 750mg am, 750mg pm Lacosamide 200mg am, 200mg pm Cenobamate 12.5mg pm 12/25/2021 Lorazepam 1mg am Levetiracetam 2,000mg am, 2,000mg pm Depakote 750mg am, 750mg pm Lacosamide 200mg am, 200mg pm Cenobamate 12.5mg pm Review of Systems General Negative except per HPI Eyes Negative except per HPI ENT Negative except per HPI Pulmonary Negative except per HPI Cardiac Negative except per HPI GI Negative except per HPI Negative except per HPI Neurologic Per HPI Psychiatric Negative except per HPI Skeletal Negative except per HPI Endocrine Negative except per HPI Infectious Negative except per HPI Objective: BP 123/85 Pulse 100 Temp 98.3 ??F (36.8 ??C) (Axillary) Resp 18 Ht 5' 11 (1.803 m) Wt 130 lb (59 kg) SpO2 98% Body mass index is 18.13 kg/m??. Exam: Exam: General appearance: Awake, drowsy, no distress Cortical Function: MS: Awake, drowsy, Follows Commands Oriented to Person, Place and Disoriented to time Language: Garbled, Coherent, Repetition Intact Cranial Nerves: Normal ocular alignment, No facial palsy Motor: Abnormal Movements: None Bulk: Normal Tone: Normal Strength: 4/5 on LUE & LLE (patient develops post-ictal weakness to left side at baseline) Labs: Valproic acid level: 84 ug/mL (12/21/21) Levetiracetam level: 66 ug/ml (12/21/21) Lacosamide level: 10 ug/ml (12/21/21) CBC: Recent Labs Component Name 12/21/21 1245 05/01/21 2159 02/25/21 1135 WBC 6.6 5.4 6.4 HGB 14.1 13.5 14.7 PLTCOUNT 126* 164 139* BMP: Recent Labs Component Name 12/21/21 1245 05/01/21 2159 02/25/21 1212 NA 144 143 140 CO2 29 24 23 CREATININE 1.00 0.79 0.83 Assessment: Bi Tabor is a 61 year old male with a medical history significant for alcohol abuse (resolved 2015), CVA, HTN, HLD, prior head injury, cervical osteoarthritis, anxiety, Alzheimer's (early onset) and refractory epilepsy admitted for continuous video EEG monitoring for further evaluation and rudy cterization of episodes. Plan: - Continuous video EEG monitoring, cardiac telemetry, and pulse oximetry. -Plan discharge on 12/25/21 - Obtain vital signs q8h, ins/outs tid, neuro checks bid. - Continue ASMs: levetiracetam 2,000mg BID, Depakote 750mg BID, lacosamide 200mg BID, cenobamate 12.5mg nightly -Continue treatment of HTN: amlodipine 5mg daily -Continue anti-platelet treatment: aspirin 81mg daily -Continue treatment of HLD: atorvastatin 40mg daily -Continue treatment of urinary retention: tamsulosin 0.4mg daily -Continue supplement replacement: vitamin D3 1,000 units daily -Continue treatment of chronic pain: acetaminophen Q6 hours prn, ibuprofen Q6 hours prn - Fall and Seizure precautions, Regular Diet, Lovenox for DVT ppx. ?? Discussed with Attending Physician Dr. Raymundo. Yana Rm APRN-DIRECTOR OF SPECIAL EDUCATION -[id number] Associated attestation - Sean Raymundo DO - 12/25/2021 1:04 PM CDT Patient seen and examined on 12/25/2021. I agree with the findings and plan as outlined in the [facility] note. Patient with multiple seizures overnight requiring Ativan. Will plan for discharge tomorrow if stable. * Particia Stewart RN - 12/25/2021 5:30 AM CDT 12/25/21 0340 Seizure Activity Psychomotor Symptoms Behavior pause Deviation Head left;Stare Motor Component Left;Arm;Mouth;Twitching;Staring Able to State Recall Items No (Initially pt unable to recall previously used items. Recall improved over time.) Speech clear Oriented Yes Able to follow commands Yes Additional description of Seizure During seizure activity head and eyes deviate to the left, LUE twitches, mouth automatisms occur intermittently. During peak seizure activity pt not always able to respond verbally. When seizure activity decreases (for about 30-40 secs), pt able to talk, follow commands, and turn head and eyes to the right, but decreased LUE twitching persists. Tachycardia generally improves. HR ranged between 90-170 from 8620-4247. When seizure activity begins again, pt reports feeling hot and HR increases. (0349) Pt reports funny feeling, feels hot all over. (0349) Complaints of headache. (0407) reports feeling hot, seizure activity returns. (0409) head returns to midline position but pt does not look to the right on command, last about 20 secs. (0421) pt attempting to turn head to the right upon command with success, but eyes remain deviated to the left. Head deviates to the left, LUE twitching increases in intensity. (0427) pt says OK unprovoked just as head turnsleft and LUE seizure intensity increases. (0439) RUE, RLE, and LUE twitching, tachycardia, elevatedBP. Duration of Seizure Duration on and off repeatedly since 0340. ativan PO given 0443. Seizure Assessment Seizure Assessment Tachycardia Lowest SPO2 Range % 98 Interventions Interventions Notified MD Post Seizure Condition Post Seizure Assessment A;S Post- Ictal LUE weakness;LLE weakness * Patricia Stewart RN - 12/25/2021 2:36 AM CDT 12/25/21 0153 Seizure Activity Psychomotor Symptoms Behavior pause Deviation Head left;Stare Motor Component Lip smacking;Mouth;Staring Able to State Recall Items No Speech clear Oriented Yes Able to follow commands Yes Additional description of Seizure Seizure activity associated with repeated episodes of pt returning to baseline and responding appropriately to commands followed by recurrent seizure activity as documented. Seizure associated with LUE and LLE weakness; complaints of headache, top of head, 5/10 pain. Duration of Seizure Duration started 0153, last sz activity observed at 0230, sleep at 0232. Seizure Assessment Seizure Assessment Tachycardia Lowest SPO2 Range % 97 Interventions Interventions Notified MD Post Seizure Condition Post Seizure Assessment A;S Post- Ictal LUE weakness;LLE weakness * Patricia Stewart RN - 12/24/2021 10:07 PM CDT Problem: Pain/Discomfort Goal: Patient exhibits [...] in the flowsheet documentation) Outcome: Progressing Problem: Seizures Goal: Seizures are under control or absent Outcome: Progressing Problem: SEIZURE EVENT MONITORING Goal: To record an episode to determine whether or not the episode is a seizure. Outcome: Progressing Problem: Nutrient: Malnutrition Goal: Total intake will meet estimated nutrient needs Outcome: Progressing * Dionne Guerrier RN - 12/24/2021 6:01 PM CDT Patient discharge canceled. This nurse spoke with patients sister (ofe) who stated that she wouldcome to get patient when she found a ride and she should be here before it storms. Sister also requested that patients meds be called in to the pharmacy so that she would not have to get patient out to go get them when she picked him up. Patient home med was delivered by pharmacy. Meds placed in front of patients TV set for when he goes home. Patient is stable and has no new complaints. Bed in low position and call light within reach . This nurse will continue to monitor patient throughout the rest of the shift * Yana Fish CPhT - 12/24/2021 5:35 PM CDT MEDICATION TO BEDSIDE DELIVERY: COMPLETE Medication to Bedside delivery was completed for Bi Tabor. ??? A total of 1 prescriptions were delivered to the patient for discharge. ??? Medications were given to NURSE (Dionne) ??? This delivery included a controlled substance: YES, given to Dionne ??? This delivery included medication that should be stored in the fridge: NO Thank you for allowing the outpatient pharmacy to participate in the care of Bi Tabor. If you have any questions, please contact the outpatient pharmacy at [phone]. Yana Fish CPhT [facility] at [address], [address] Floor [place], [place] [address] Hours of Operation Tuesday - Tuesday: 8:00am to 6:00pm Tuesday: 9:00am to 1:00pm Epic: [facility] *Ensure the patient and clinic's nearby ZIP codes box is unchecked* * Yana Rm APRN-CNP - 12/24/2021 4:30 PM CDT EMU Progress Note Patient: Bi Tabor Age: [age] year old Admission Date and Time: 12/21/2021 Date: 12/24/2021 Chief Complaint: Seizures Progress: Bi Tabor is a 61 year old male with PMH including alcohol abuse (2015), CVA (02/2015),HTN, HLD, prior head injury (from a fall?), cervical osteoarthritis, anxiety, Alzheimer's (early onset) and refractory epilepsy (reported onset, two weeks after his head injury), who presented to [facility] continuous video EEG monitoring for medication adjustment and to quantify seizure burden. No reported events over night, EEG pending review. Continue current ASM regimen, plan for dischargeon 12/25/21 if patient stable. EEG Reading: refer to procedure note Home ASMs: Name Pill Size Frequency Total/day Levetiractam?1000 mg tab ?2 - 2 ?4,000mg/day ? Depakote DR ? 500 mg tab?1 - 1 ? Depakote DR ?250 mg tab?1 - 1 ?1,500mg/day Lacosamide ?200 mg tab?1??- 1 ?400mg/day? Current ASMs: 12/21/2021 Levetiracetam 2,000mg am, 2,000mg pm Depakote 750mg am, 750mg pm Lacosamide 200mg am, 200mg pm 12/22/2021 Lorazepam x1 2mg Levetiracetam 2,000mg am, 2,000mg pm Depakote 750mg am, 750mg pm Lacosamide 200mg am, 200mg pm 12/23/2021 Levetiracetam 2,000mg am, 2,000mg pm Depakote 750mg am, 750mg pm Lacosamide 200mg am, 200mg pm Cenobamate 12.5mg pm 12/24/2021 Levetiracetam 2,000mg am, 2,000mg pm Depakote 750mg am, 750mg pm Lacosamide 200mg am, 200mg pm Cenobamate 12.5mg pm Review of Systems General Negative except per HPI Eyes Negative except per HPI ENT Negative except per HPI Pulmonary Negative except per HPI Cardiac Negative except per HPI GI Negative except per HPI Negative except per HPI Neurologic Per HPI Psychiatric Negative except per HPI Skeletal Negative except per HPI Endocrine Negative except per HPI Infectious Negative except per HPI Objective: BP 127/75 Pulse 75 Temp 97.9 ??F (36.6 ??C) (Oral) Resp 18 Ht 5' 11 (1.803 m) Wt 130 lb (59 kg) SpO2 97% Body mass index is 18.13 kg/m??. Exam: Exam: General appearance: Awake, alert, no distress Cortical Function: MS: Awake, Alert, Follows Commands Oriented to Person, Place and Disoriented to time Language: Garbled, Coherent, Repetition Intact Cranial Nerves: Normal ocular alignment, No facial palsy Motor: Abnormal Movements: None Bulk: Normal Tone: Normal Strength: Minimally weaker both left upper and lower extremities Labs: Valproic acid level: 84 ug/mL (12/21/21) Levetiracetam level: 66 ug/ml (12/20/21) Lacosamide level: pending CBC: Recent Labs Component Name 12/21/21 1245 05/01/21215802/25/21 1135 WBC 6.6 5.4 6.4 HGB 14.1 13.5 14.7 PLTCOUNT 126* 164 139* BMP: Recent Labs Component Name 12/21/21 1245 05/01/21215802/25/21 1212 NA 144 143 140 CO2 29 24 23 CREATININE 1.00 0.79 0.83 Assessment: Bi Tabor is a 61 year old male with a medical history significant for alcohol abuse (resolved 2015), CVA, HTN, HLD, prior head injury, cervical osteoarthritis, anxiety, Alzheimer's (early onset) and refractory epilepsy admitted for continuous video EEG monitoring for further evaluation and rudy cterization of episodes. Plan: - Continuous video EEG monitoring, cardiac telemetry, and pulse oximetry. -Plan discharge on 12/25/21 - Obtain vital signs q8h, ins/outs tid, neuro checks bid. - Continue ASMs: levetiracetam 2,000mg BID, Depakote 750mg BID, lacosamide 200mg BID, cenobamate 12.5mg nightly -Continue treatment of HTN: amlodipine 5mg daily -Continue anti-platelet treatment: aspirin 81mg daily -Continue treatment of HLD: atorvastatin 40mg daily -Continue treatment of urinary retention: tamsulosin 0.4mg daily -Continue supplement replacement: vitamin D3 1,000 units daily -Continue treatment of chronic pain: acetaminophen Q6 hours prn, ibuprofen Q6 hours prn - Fall and Seizure precautions, Regular Diet, Lovenox for DVT ppx. ?? Discussed with Attending Physician Dr. Raymundo. Yana Rm APRN-DIRECTOR OF SPECIAL EDUCATION -[facility] Epilepsy Ascom #[id number] Associated attestation - Sean Raymundo DO - 12/24/2021 5:25 PM CDT Patient seen and examined on 12/24/2021. I agree with the findings and plan as outlined in the DEMETRA note. Patient originally planned to discharge today. Unable to discharge, will plan for tomorrow. OffcEEG monitoring in preparation for discharge. * Fili Lombardi - 12/24/2021 1:01 PM CDT This coordinator will attempt to contact the patient and obtain a follow-up appointment. This coordinator will update the patient and the chart as applicable * Dionne Guerrier RN - 12/24/2021 11:13 AM CDT Problem: Pain/Discomfort Goal: Patient exhibits [...] in the flowsheet documentation) Outcome: Progressing Problem: Seizures Goal: Seizures are under control or absent Outcome: Progressing Problem: SEIZURE EVENT MONITORING Goal: To record an episode to determine whether or not the episode is a seizure. Outcome: Progressing Problem: Nutrient: Malnutrition Goal: Total intake will meet estimated nutrient needs Outcome: Progressing * Ana Castro RD/NOLAN - 12/23/2021 11:53 AM CDT Initial Nutrition Assessment Brief Synopsis: Patient is dx with malnutrition; Specific criteria can be found in assessment below Nutrition Plan: Continue Regular diet. Ensure Enlive (1.5 Margarita) (350 kcals, 20 g protein, 44 g carbohydrate) TID w/meals Recommendations to Physician: None Comments: Pt screened in for low BMI. Visited with pt who reports no recent wt loss, pretty good appetite and eating most of food on trays. Reported intake noted in chart is 50-100% of meals. NFPE completed, patient is dx with malnutrition, see malnutrition etiology below. RDN added orders for ONS to increase kcal and protein intake, see above. Pt agreeable to drinking. No BM reported in EMR, pt unsure of LBM, active bowel sounds. Will continue to monitor. Assessment: Med/Surg History and Clinical Diagnoses: seizure; PMH including alcohol abuse (resolved 2016), CVA,HTN, HLD, prior head injury, cervical osteoarthritis, anxiety, Alzheimer's (early onset) and refractory epilepsy. Height: 5' 11 (180.3 cm) Weight: 130 lb (59 kg) BMI: Body mass index is 18.13 kg/m??. BMI Range: Underweight IBW/lb (Calculated) Male: 172 , Usual weight/lb: 137lb (Reported by pt) Recent Weights/Methods 09/17/2020 1016 02/25/2021 1059 05/01/2021 2236 08/28/2021 1101 09/01/2021 1359 12/09/2021 1023 12/21/2021 1236 Weight: 135 lb (61.2 kg) 168 lb (76.2 kg) 168 lb (76.2 kg) -- -- 131 lb (59.4 kg) 130 lb (59 kg) Weight Method (Utilize Scales): -- Stated -- -- -- -- Estimated Wt Comments: Unsure of wt hx accuracy, recommend weighing pt utilizing bedscale. Diet order accuracy Current diet order: Regular Nutritional Supplement at Discharge: Yes Nutrition recommendation: alter/change nutrition order P.O.Intake for the past 48 hrs: % Meal Taken Av.9 % Min: 50 % Max: 100 % Supplement(s) Consumed- Last 48 hours None Food Allergies: No known food allergies Chewing/Swallowing: Altered Dentition (Missing teeth) Pain affecting intake: No Estimated Needs: KCAL: 1770-2065kcal (30-35kca/kg (ABW)) Protein (g): 89-103g (20% of estimated kcal) Fluid (ml): 1 ml/kcal Needs based on: Kcal/kg- (Comment) (ABW: 130lb (59kg); EMR, estimated) Recommended Access Route: PO Malnutrition Etiology: Malnutrition in the context of: acute disease or injury, Malnutrition Severity: Severe Unintended weight change: Severe weight loss Weight Loss: > 10% x 6 months (Per wt hx reported in EMR; unsure if accuracy) BMI: Body mass index is 18.13 kg/m??. GI Concerns: None Nutrition Focused Physical Assessment: Loss of Subcutaneous Fat Orbital: Mild Buccal: Mild Tricep: Moderate Muscle Loss Temples (Temporalis Muscle): Mild Clavicles (Pectoralis & Deltoids): Mild Shoulders (Deltoids): Mild Interosseous Muscle: Moderate Thigh (Quadriceps): Moderate Calf (Gastrocnemius): Moderate Pertinent Nutrition Labs: Recent Labs Component Name 12/21/21 1245 05/01/21 2159 02/25/21 1212 BUN 15 14 13 CREATININE 1.00 0.79 0.83 NA 144 143 140 POTASSIUM 5.4* 4.0 3.7 CL 106 108* 108* CO2 29 24 23 GLUCOSE 98 102 78 CALCIUM 9.7 9.4 8.3* PROT 6.8 6.9 5.7* ALB 3.6 3.7 3.2* TBILI 0.4 0.5 0.6 ALKPHOS 71 66 51 ALT 14 10 9 AST 22 19 17 ANIONGAP 14 15 13 BCR 15 18 16 OSMOLALITY 299 297 289 AGRATIO 1.1 1.2 1.3 EGFR 86* >90 >90 Pertinent Nutrition Medications: Current Facility-Administered Medications Medication ??? 0.9% NaCl injection 3 mL And ??? 0.9% NaCl injection 1-10 mL ??? acetaminophen (Tylenol) tablet 500 mg ??? amLODIPine (Norvasc) tablet 5 mg ??? aspirin chew tablet 81 mg ??? atorvastatin (Lipitor) tablet 40 mg ??? cenobamate (Xcopri) tablet 12.5 mg ??? divalproex DR (Depakote) tablet 250 mg ??? divalproex DR (Depakote) tablet 500 mg ??? enoxaparin (Lovenox) injection 40 mg ??? ibuprofen (Motrin) tablet 600 mg ??? lacosamide (Vimpat) tablet 200 mg ??? levETIRAcetam (Keppra) tablet 2,000 mg ??? tamsulosin (Flomax) capsule 0.4 mg ??? vitamin D3 (Cholecalciferol) 25 MCG (1000 UNITS) tablet 1,000 Units Skin/Wound: WNL Education needed: Supplements Education Provided: Prior to Discharge Nutrition Care Process (1) Nutrition Diagnostic Statement: Malnutrition severity: : Moderate related to:: inadequate protein-energy intake as evidenced by:: BMI less than 19;loss of subcutaneous fat;loss of muscle mass Nutrition Diagnostic Statement Progress: New diagnostic statement established Nutrition Intervention: Meals and snacks:;Medical Food Supplements: Monitoring: PO intake, labs, weight, BM, and meds Evaluation: Nutrition Goal: Total intake will meet estimated nutrient needs Nutrition Goal Timeframe: Throughout stay Nutrition Goal Progress: New goal established Ana Castro, MS, RDN, LDN Ascom [id number] * Mariajose Odell RN - 12/23/2021 10:40 AM CDT Problem: Fall Risk Goal: Fall risk and fall related injury risk are minimized (interventions related to the fall risk can be found in the flowsheet documentation) Outcome: Progressing Problem: Seizures Goal: Seizures are under control or absent Outcome: Progressing Problem: SEIZURE EVENT MONITORING Goal: To record an episode to determine whether or not the episode is a seizure. Outcome: Progressing * Caio Oliveira - 12/23/2021 10:00 AM CDT Social Work Progress Note Discharge Plan Disposition: SW reviewed Pt's chart for social needs. None present at this time. Pt recommended to return home when medically cleared by Physician's team. SW is able to assist with disposition needs that impede discharge. Transportation (if ambulance rationale): Transportation at discharge: Family Anticipated Discharge Date: Anticipated Discharge Date: 12/25/21 Anticipated Provider: Anticipated level of care provider: None Contacts: Extended Emergency Contact Information Primary Emergency Contact: Ofe Hilliard [employer] Relation: Sister Aquatic Director needed? No Secondary Emergency Contact: Amarjit Tabor [facility] Relation: Brother Have they been contacted? Not during this encounter. CLARITA Rico MBA Stroke Public Relations Specialist [phone] 12/23/2021 10:00 AM * Yana Rm APRN-BELINDA - 12/23/2021 8:26 AM CDT EMU Progress Note Patient: Bi Tabor Age: [age] year old Admission Date and Time: 12/21/2021 Date: 12/23/2021 Chief Complaint: Seizures Progress: Bi Tabor is a 61 year old male with PMH including alcohol abuse (resolved 2015), CVA (02/2015),HTN, HLD, prior head injury (from a fall?), cervical osteoarthritis, anxiety, Alzheimer's (early onset) and refractory epilepsy (reported onset, two weeks after his head injury), who presented to [facility] continuous video EEG monitoring for medication adjustment and to quantify seizure burden. No reported events over night, EEG pending review. Start cenobamate 12.5mg nightly, discussed plan of care with sisterOfe. EEG Reading: refer to procedure note Home ASMs: Name Pill Size Frequency Total/day Level Start Levetiractam?1000 mg tab ?2 - 2 ?4,000mg/day ?58 (09/01/20) Depakote DR ? 500 mg tab?1 - 1 ? Depakote DR ?250 mg tab?1 - 1 ?1,500mg/day ?87.2??(10/07/21) Lacosamide ?200 mg tab?1??- 1 ?400mg/day?11.5 (09/01/21) Current ASMs: 12/21/2021 Levetiracetam 2,000mg am, 2,000mg pm Depakote 750mg am, 750mg pm Lacosamide 200mg am, 200mg pm 12/22/2021 Lorazepam x1 2mg Levetiracetam 2,000mg am, 2,000mg pm Depakote 750mg am, 750mg pm Lacosamide 200mg am, 200mg pm 12/23/2021 Levetiracetam 2,000mg am, 2,000mg pm Depakote 750mg am, 750mg pm Lacosamide 200mg am, 200mg pm Cenobamate 12.5mg pm Review of Systems General Negative except per HPI Eyes Negative except per HPI ENT Negative except per HPI Pulmonary Negative except per HPI Cardiac Negative except per HPI GI Negative except per HPI Negative except per HPI Neurologic Per HPI Psychiatric Negative except per HPI Skeletal Negative except per HPI Endocrine Negative except per HPI Infectious Negative except per HPI Objective: BP 133/76 Pulse 59 Temp 97.3 ??F (36.3 ??C) Resp 17 Ht 5' 11 (1.803 m) Wt 130 lb (59 kg) SpO2 96% Body mass index is 18.13 kg/m??. Exam: Exam: General appearance: Awake, alert, no distress Cortical Function: MS: Awake, Alert, Follows Commands Oriented to Person, Place and Disoriented to time Language: Garbled, Coherent, Repetition Intact Cranial Nerves: Normal ocular alignment, No facial palsy Motor: Abnormal Movements: None Bulk: Normal Tone: Normal Strength: Minimally weaker both left upper and lower extremities Labs: Valproic acid level: 84 ug/mL (12/21/21) Levetiracetam level: 66 ug/ml (12/20/21) Lacosamide level: pending CBC: Recent Labs Component Name 12/21/21 1245 05/01/21215802/25/21 1135 WBC 6.6 5.4 6.4 HGB 14.1 13.5 14.7 PLTCOUNT 126* 164 139* BMP: Recent Labs Component Name 12/21/21 1245 05/01/21 21502/25/21 1212 NA 144 143 140 CO2 29 24 23 CREATININE 1.00 0.79 0.83 Assessment: Bi Tabor is a 61 year old male with a medical history significant for alcohol abuse (resolved 2015), CVA, HTN, HLD, prior head injury, cervical osteoarthritis, anxiety, Alzheimer's (early onset) and refractory epilepsy admitted for continuous video EEG monitoring for further evaluation and rudy cterization of episodes. Plan: - Continue continuous video EEG monitoring, cardiac telemetry, and pulse oximetry. - Obtain vital signs q8h, ins/outs tid, neuro checks bid. - Continue ASMs: levetiracetam 2,000mg BID, Depakote 750mg BID, lacosamide 200mg BID, start cenobamate 12.5mg nightly -Continue treatment of HTN: amlodipine 5mg daily -Continue anti-platelet treatment: aspirin 81mg daily -Continue treatment of HLD: atorvastatin 40mg daily -Continue treatment of urinary retention: tamsulosin 0.4mg daily -Continue supplement replacement: vitamin D3 1,000 units daily -Continue treatment of chronic pain: acetaminophen Q6 hours prn, ibuprofen Q6 hours prn - Fall and Seizure precautions, Regular Diet, Lovenox for DVT ppx. ?? Discussed with Attending Physician Dr. Raymundo. Yana Rm APRN-DIRECTOR OF SPECIAL EDUCATION -[facility] Epilepsy Ascom #[id number] Associated attestation - Sean Raymundo DO - 12/23/2021 4:09 PM CDT Patient seen and examined on 12/23/2021. I agree with the findings and plan as outlined in the DEMETRA note. Frequent electrographic seizures on cEEG. 2 clinical events yesterday. Will increase home medications by adding xcopri with plan to titrate off Vimpat. Will likely discharge tomorrow if stable. 25 minutes was spent in the care of this patient, of this 15 minutes were spent by me and 10 minutes by the DEMETRA. This time was spent reviewing the available records, coordinating the patients care with the inpatient team, and in [id number] time with the patient counseling them on the procedure for inpatient admission, the plan for the hospitalization and the goals and expectations of the EMU admission Discussed plan of care with patient's sister. * Jose M Gomez, RN - 12/22/2021 2:59 PM CDT Case Management Initial Assessment Case Management screen completed & Welcome Letter given. Anticipated level of care at discharge: Home Discharge Plans: Admitted to EMU for seizure monitoring. Will likely discharge home when monitoringis complete. Prior Level of Functioning: Lives with: Alone Basic Needs Assessment (BNA) Score: 12 Readmission: Met with patient Discharge Goals and Plans: Verify Family Support (name and phone): Extended Emergency Contact Information Primary Emergency Contact: Ofe Hilliard [employer] Relation: Sister Aquatic Director needed? No Secondary Emergency Contact: Amarjit Tabor [facility] Relation: Brother Patient or senior outside sales representative requests care coordination reach out to family or caregiver listed above regarding discharge planning and at time of discharge? Yes Anticipated Discharge Date: 12/25/21 Patient/Family provided with list of resources? Unknown Preferred Provider / High Quality Network List given?: Unknown Reason for provider choice: Unknown Transportation at Discharge: Family Transportation to MD appointments: Family Equipment at Home: Equipment At Home: Walker-4 Wheeled with Seat Additional equipment needed at home but does not have: If no PCP, action taken: Pharmacy benefit: Yes Medication affordability concerns: No Hunger Screening: Within the past 12 months, you worried that your food would run out before you got the money to buymore.: Never true Within the past 12 months, the food you bought just didn't last and you didn't have money to get more.: Never true Public Relations Specialist Referral: No If patient requires HHC at discharge, he/she requests: Will continue to follow. For any questions or needs please contact: Film Washer Name/Phone number: Jose M Gomez RN [phone] * Juan Jose Gilbert APRN-DIRECTOR OF SPECIAL EDUCATION - 12/22/2021 8:08 AM CDT EMU Progress Note Patient: Bi Tabor Age: [age] year old Admission Date and Time: 12/21/2021 Date: 12/22/2021 Chief Complaint: Seizures Progress: Bi Tabor is a 61 year old male with PMH including alcohol abuse (resolved 2015), CVA, HTN, HLD,prior head injury, cervical osteoarthritis, anxiety, Alzheimer's (early onset) and refractory epilepsy with seizures like events who presented to [facility] for continuous video EEG monitoring. Multiple events reported early 12/22/2021, 2 mg Ativan given at that time, EEG pending review. EEG Reading: refer to procedure note Home ASMs: Name Pill Size Frequency Total/day Level Start Levetiractam?1000 mg tab ?2 - 2 ?4,000mg/day ?58 (09/01/20) Depakote DR ? 500 mg tab?1 - 1 ? Depak[address] DR ?250 mg tab?1 - 1 ?1,500mg/day ?87.2??(10/07/21) Lacosamide ?200 mg tab?1??- 1 ?400mg/day?11.5 (09/01/21) Current ASMs: 12/21/2021 Levetiracetam 2,000mg am, 2,000mg pm Depakote 750mg am, 750mg pm Lacosamide 200mg am, 200mg pm 12/22/2021 Lorazepam x1 2,000mg am Levetiracetam 2,000mg am, 2,000mg pm Depakote 750mg am, 750mg pm Lacosamide 200mg am, 200mg pm Review of Systems General Negative except per HPI Eyes Negative except per HPI ENT Negative except per HPI Pulmonary Negative except per HPI Cardiac Negative except per HPI GI Negative except per HPI Negative except per HPI Neurologic Per HPI Psychiatric Negative except per HPI Skeletal Negative except per HPI Endocrine Negative except per HPI Infectious Negative except per HPI Objective: BP 142/75 Pulse 63 Temp 97.5 ??F (36.4 ??C) (Oral) Resp 18 Ht 5' 11 (1.803 m) Wt 130 lb (59 kg) SpO2 97% Body mass index is 18.13 kg/m??. Exam: Exam: General appearance: Awake, alert, no distress Cortical Function: MS: Awake, Alert, Follows Commands Oriented to Person, Place and Disoriented to time Language: Garbled, Coherent, Repetition Intact Cranial Nerves: Normal ocular alignment, No facial palsy Motor: Abnormal Movements: None Bulk: Normal Tone: Normal Strength: Minimally weaker both left upper and lower extremities Labs: Valproic acid level: 84 ug/mL (12/21/2021) Levetiracetam level: pending Lacosamide level: pending CBC: Recent Labs Component Name 12/21/21 1245 05/01/21215802/25/21 1135 WBC 6.6 5.4 6.4 HGB 14.1 13.5 14.7 PLTCOUNT 126* 164 139* BMP: Recent Labs Component Name 12/21/21 1245 05/01/21215802/25/21 1212 NA 144 143 140 CO2 29 24 23 CREATININE 1.00 0.79 0.83 Assessment: Bi Tabor is a 61 year old male with a medical history significant for alcohol abuse (resolved 2015), CVA, HTN, HLD, prior head injury, cervical osteoarthritis, anxiety, Alzheimer's (early onset) and refractory epilepsy admitted for continuous video EEG monitoring for further evaluation and rudy cterization of episodes. Plan: - Continue continuous video EEG monitoring, cardiac telemetry, and pulse oximetry. - Obtain vital signs q8h, ins/outs tid, neuro checks bid. - Continue ASMs: levetiracetam 2,000mg BID, Depakote 750mg BID, lacosamide 200mg BID -Continue treatment of HTN: amlodipine 5mg daily -Continue anti-platelet treatment: aspirin 81mg daily -Continue treatment of HLD: atorvastatin 40mg daily -Continue treatment of urinary retention: tamsulosin 0.4mg daily -Continue supplement replacement: vitamin D3 1,000 units daily -Continue treatment of chronic pain: acetaminophen Q6 hours prn, ibuprofen Q6 hours prn - Fall and Seizure precautions, Regular Diet, Lovenox for DVT ppx. ?? Discussed with Attending Physician Dr. Raymundo. Juan Jose Gilbert APRN-BELINDA -[facility] Epilepsy Ascom #[id number] Associated attestation - Sean Raymundo DO - 12/22/2021 12:08 PM CDT Patient seen and examined on 12/22/2021. I agree with the findings and plan as outlined in the DEMETRA note. 25 minutes was spent in the care of this patient, of this 15 minutes were spent by me and 10 minutes by the DEMETRA. This time was spent reviewing the available records, coordinating the patients care with the inpatient team, and in [id number] time with the patient counseling them on the procedure for inpatient admission, the plan for the hospitalization and the goals and expectations of the EMU admission documented in this encounter H&P Notes * Naa Ferrera DO - 12/30/2021 4:57 AM CDT MICU History & Physical Note 12/30/2021 6:30 AM Patient: Bi Tabor (:1960) Room: [facility] Admit Date: 12/21/2021. Hospital Day: 4 CC: Refractory Epilepsy HPI: Bi Tabor is 61 year old male with history of alcohol use disorder (resolved 2015), CVA, HTN, HLD, prior head injury, cervical osteoarthritis, anxiety, Alzheimer's (early onset) and refractory epilespy admitted on 12/21/2021 for refractory epilepsy to be evaluated for continuous video EEG monitoring for medication adjustment. Patient started having seizures about 29 years ago when he hit his head during a family outdoor game. The seizures began a month after this incident. He has a history of2 types of seizures: brief staring episodes and generalized convulsive events. On 12/25/21 patient was found to have multiple seizures overnight that required ativan. On 12/26 the seizures continued and family was not comfortable with patient being discharged. 12/29/21 code stroke was called on pt whennurse noticed L sided weakness. Head imaging without new LVO or stenosis. 12/29/21 he started having 5-6 seizures/hour. After episodes he was confused, unable to speak, obtunded. Since 5pm he received his scheduled regimen and loading dose of Keppra 3.6 and VPA 1200mg. At 3AM patient started having fo margarita seizures lasting >10min. No changes in vital signs or airway compromise. Neurology gave ativan 3mg, which aborted seizure, but proceeded to have 2 more events. Neurology was notified by nursing staff that they were not comfortable caring for this patient. Patient was then transferred to MICU for closer seizure monitoring. In the MICU the patient VSS. Danielwas witnessed having his fourth seizure since arrival, which involved L facial and L UE twitching. He is unresponsive to his name and opens eyes to sternal rub. Past Medical History Past Medical History: Diagnosis Date ??? CVA (cerebral vascular accident) ??? HTN (hypertension) ??? Seizure Past Surgical History No past surgical history on file. Social History Social History Tobacco Use ??? Smoking status: Former Smoker Packs/day: 1.00 Years: 15.00 Pack years: 15.00 ??? Smokeless tobacco: Never Used Vaping Use ??? Vaping Use: Never used Substance Use Topics ??? Alcohol use: No Comment: last drink 2015 ??? Drug use: No Comment: occasional Family History Unknown Allergies Allergies Allergen Reactions ??? Clonazepam Psychiatric hallucinations Home Medications Current Outpatient Medications Medication Instructions ??? acetaminophen (TYLENOL) 325 MG tablet No dose, route, or frequency recorded. ??? amLODIPine (NORVASC) 5 mg, Oral, DAILY ??? aspirin (ASPIRIN) 81 mg, Oral, DAILY ??? atorvastatin (LIPITOR) 40 mg, Oral, AT BEDTIME ? ? Cenobamate (XCOPRI) 14 x 12.5 MG & 14 x 25 MG TBPK Take 12.5 mg by mouth at bedtime for 14 days, THEN 25 mg at bedtime for 14 days. ? ? [START ON 02/19/2022] Cenobamate 14 x 150 MG & 14 x200 MG TBPK Take 150 mg by mouth at bedtime for 14 days, THEN 200 mg at bedtime for 14 days. ? ? [START ON 01/22/2022] Cenobamate 14 x 50 MG & 14 x100 MG TBPK Take 50 mg by mouth at bedtimefor 14 days, THEN 100 mg at bedtime for 14 days. ??? Cholecalciferol 1,000 Units, Oral, DAILY ??? divalproex DR (DEPAKOTE) 250 mg, Oral, 2 TIMES DAILY, [Take with 250 mg tablets, making 750 mg twice a day] ??? divalproex DR (DEPAKOTE) 500 mg, Oral, 2 TIMES DAILY, [Take with 250 mg tablets, making 750 mg twice a day] ??? ibuprofen (MOTRIN) 600 mg, Oral, PRN ??? lacosamide (VIMPAT) 200 mg, Oral, 2 TIMES DAILY ??? levETIRAcetam (KEPPRA) 2,000 mg, Oral, 2 TIMES DAILY ??? tamsulosin (FLOMAX) 0.4 mg, DAILY Review of Systems unable to obtain 2/2 encephalopathy Objective: Vitals: 12/30/21 0415 12/30/21 0500 12/30/21 0600 12/30/21 0615 BP: 120/72 (!) 172/105 159/90 Pulse: 70 58 89 77 Resp: 17 12 Temp: 98 ??F (36.7 ??C) SpO2: 97% 96% 95% 96% Weight: Height: Intake/Output Summary (Last 24 hours) at 12/30/2021 0630 Last data filed at 12/29/2021 2155 Gross per 24 hour Intake 0 ml Output 400 ml Net -400 ml Physical Exam General - Patient actively seizing with L facial and UE twitching, afebrile HEENT - NC/AT, EOMI, clear conjunctivae, throat without erythema or exudate, moist mucous membranes Neck - Supple, trachea midline Chest - Shallow breathing. Diminished breath sounds anteriorly, no crackles or wheezes bilaterally CV - RRR no murmurs, gallops, rubs Abdomen - Soft, NT/ND, +BS, no organomegaly Musculoskeletal - Moves L UE in rhythmic motion while seizing Extremities - No LE edema Skin - No rashes, lesions or jaundice Neurologic - Patient non-responsive to name, opens eyes to sternal rub, brief periods of seizing affecting L face and LUE Psych - Unable to assess 2/2 mental status Labs: CBC: Recent Labs Component Name 12/30/21 0119 12/29/21 0712/27/21 011 WBC 13.1* 8.1 6.7 HGB 13.3 15.4 15.1 HCT 39.5 44.8 44.9 BMP: Recent Labs Component Name 12/30/21 0119 12/29/21 0712/27/21 0117 05/01/21 2159 02/25/21 1459 02/25/21 1212 08/20/20 0403 NA 141 140 141 - - - 141 CL 107 103 104 - - - 103 CO2 25 24 22 - - - 26 BUN 25 19 - - - 16 CREATININE 0.81 0.86 0.89 - - - 1.0 CALCIUM 9.1 9.7 9.5 - - - 9.3 PHOS - - 2.8 - 3.2 - 3.2 - = values in this interval not displayed. Hepatic: Recent Labs Component Name 12/30/21 0119 12/29/21 0712/27/21 011 ALT 20 27 26 AST 20 25 32 TBILI 0.2 0.4 0.5 PROT 6.0 7.2 6.7 ALB 3.0* 3.4 3.3* ALKPHOS 62 73 74 Coagulation: Recent Labs Component Name 02/25/21 1134 07/18/19 1139 04/11/15 0622 PT 13.5 12.9 12.1 INR 1.1 1.0 0.9 Cardiac Markers: Recent Labs Component Name 02/25/21 1459 02/25/21 1134 05/15/19 0911 05/13/19 2030 01/24/19 0154 CKTOTAL - - 63 - 127 TROPONINI 0.012 0.021 <0.010 - - - = values in this interval not displayed. ABGs: No results for input(s): PHART, PO2ART, UGA6EDT, BEART in the last 33153 hours. Imaging: EEG IMPRESSION This is an abnormal epilepsy monitoring recording due to 1) frequent electro- clinical focal seizures 2) right hemispheric slowing CT Brain Stroke 12/29/21 IMPRESSION: ?? 1.No acute intracranial process. 2.Old infarcts and senescent changes are stable compared to the brain CT from 05/01/2021. CT angio brain neck stroke 01/18/22 IMPRESSION: ?? 1.The dural venous sinuses are not well opacified with contrast and cannot be evaluated. 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 3.70% stenosis of the left ICA origin due to atherosclerotic plaque at the bifurcation is stable. 4.No aneurysm, AVM, or new acute large vessel occlusion. Assessment: Epilepsy, unspecified, not intractable, without status epilepticus POA: Yes Difficulty in walking, not elsewhere classified POA: Yes Alzheimer's disease with early onset POA: Yes Hemiplegia and 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- dominant side POA: Yes History of CVA (cerebrovascular accident) POA: Yes Seizure POA: Yes Status epilepticus POA: Yes Acute encephalopathy POA: Yes PLAN: Neurological: #Refractory Epilepsy #Acute Encephalopathy A: -Patient having frequent seizures requiring ICU level monitoring -Head imaging without new LVO or stenosis -EEG showing right hemispheric slowing -Neurology gave loading dose keppra 3.6gram 18:26 and VPA 100mg 23:30, 3mg ativan at 0300 P: -Further neuro recs in AM -Scheduled regimen: Methylprednisolone 1000mg IV QD, Depakote 500 mg TID, Locosamide 200mg IV am BID, Keppra IV 2gr BID -Continuous EEG monitoring, cardiac telemetry, and pulse ox -If patient has a GTC lasting 5 or more minutes administer ativan 4mg x1 and call neurology -If 5 or more partial complex seizures in 1 hour call neurology -CK level pending to assess for rhabdo in setting of frequent seizures #Hx of CVA -Home ASA 81mg after enteral access gained Cardiovascular: HTN Chronic condition -amlodipine 5mg after enteral access gained -MAP goal >65 HLD Chronic condition -home Lipitor 40mg after enteral access gained Pulmonary: No active issues GI: #Diet -Dobhoff consent obtained via sister, ordered radiology to place as night team unsuccessful -Nutrition eval ordered -Speech eval ordered Renal: Urinary Retention Chronic condition -Home Tamulosin 0.4mg after enteral access gained Endocrine: No active issues BGM goal 140-180 mg/dL ID: #Leukocytosis Likely reactive 2/2 seizures A: -WBC 8.1->13.1 -Low clinical suspicion for infection at this time P: -CTM Heme/Onc: #Thrombocytopenia Baseline vs ASA induced A: -Present since 2020 -platelets: 120 -No signs of bleeding P: -CTM FEN: -Monitor electrolytes QD, Replace K<4, Mg<2, Phos<3 Lines: Peripheral IV Left;Posterior Hand (Active) Placement Date/Time: 12/29/21 1210 Orientation: Left;Posterior Location: Hand Name/Credentials of person who placed: Elvis Monreal RN IV Catheter Size: 22 Gauge Number of start attempts: 1 Procedure Tolerance: Well Number of days: 0 Peripheral IV Anterior;Right Forearm (Active) Placement Date/Time: 12/30/21 0337 Orientation: Anterior;Right Location: Forearm Name/Credentials of person who placed: KELY AMURER IV Catheter Size: 20 Gauge Technique: Anatomical Landmarks;Ultrasound Guidance Number of start attempts: 1 Number of days: 0 Prophylaxis: Aspiration precautions w/ HOB elevation by 30 degrees GI prophyalxis w/ famotidine DVT prophyalxis w/ SCDs, lovenox Diet: NPO Activity: Ambulate with assistance Disposition: ICU Monitoring Code Status: Full Naa Ferrera DO Associated attestation - Lesley Vargas MD - 12/31/2021 1:01 PM CDT Attending Attestation Note I have seen and examined the patient. I reviewed and agree with the documentation and care plan of the resident/fellow/DEMETRA with the following exceptions and/or additions below: Date of Service: 12/30/2021 Acute Problem List: Epilepsy, unspecified, not intractable, without status epilepticus POA: Yes Difficulty in walking, not elsewhere classified POA: Yes Alzheimer's disease with early onset POA: Yes Hemiplegia and 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- dominant side POA: Yes History of CVA (cerebrovascular accident) POA: Yes Seizure POA: Yes Status epilepticus POA: Yes Acute encephalopathy POA: Yes Plan: - Pt with refractory epilepsy requiring ICU upgrade for close monitoring. Continue current AED regimen with Versed pushes as needed for seizure episodes. Adding standing scheduled Clobazam 10 mg BID to hopefully offset need for frequent Versed pushes. Continue monitoring respiratory status. Remainson continuous EEG. Discussed with neuro attending. Total Critical Care Time: 45 min - The following organ systems are in failure or are in imminent risk of life threatening deterioration: neurologic - Critical decision making: Highly Complex - I provided this patient with direct intervention & supervision necessary to prevent life threatening deterioration related to patient's presenting illness. - I personally spent critical care time directly and personally managing this patient. My critical care time included obtaining a history; examining the patient; evaluating oxygenation by pulse oximetry and making corresponding changes to oxygen support device settings; evaluating pt's hemodynamic status at frequent intervals and adjusting medications to maintain MAP at target and ensuring good end organ perfusion with re-assessment at regular intervals; ordering and reviewing studies includinglabs and imaging and using these to develop and adjust pt's treatment plan; evaluation of pt's response to treatment; frequent re-assessment; and discussions with consultants Lesley Vargas MD Furniture Fabricator of Internal Medicine Division of Pulmonary, Critical Care, and Sleep Medicine [facility] * Yana Rm, KOLTON-DIRECTOR OF SPECIAL EDUCATION - 12/21/2021 12:14 PM CDT Epilepsy Monitoring Unit (EMU), H&P Patient: Bi Tabor Age: [age] year old Admission Date and Time: 12/21/2021 Chief Complaint: Seizures History of Presenting Illness: Bi Tabor is a 61 year old male with PMH including alcohol abuse (resolved 2015), CVA, HTN, HLD, prior head injury, cervical osteoarthritis, anxiety, Alzheimer's (early onset) and refractory epilepsy. Patient is a established patient with the [facility]. ?? Seizure age of onset was in his 30s. Patient has two seizure types, type #1 brief staring events and type #2 generalized convulsive events. ?? Patient has a long history of refractory epilepsy with failure of multiple medications, see treatment history listed below. Compliance has historically been erratic, but patient did still have breakthrough seizures when he had good compliance with medications and therapeutic ASM levels. In 04/2019 patient had repetitive seizures and status epilepticus. Etiology suspected due to compliance issues. ?? Patient's medications are managed by family now and he has a caregiver that comes in on Tuesday, Wednesdays and Fridays. It is unclear patient's current seizure burden since he lives alone, possibly seizures are being underreported. Currently believed that staring events #1 are occurring weekly and GTC seizures #2, areoccurring several times a month. Patient being admitted to [facility] Epilepsy Monitoring Unit to quantify seizure burden, for medication adjustments and to guide subsequent management. Age of Onset: 30s Semiology: SEMIOLOGY - Aura Unsure, just a feeling I'm going to have a seizure - Ictus #1.) staring off events Duration: few seconds ?? #2.) Convulsions, with tongue injury Duration: few minutes - Post-ictus Confusion, aggression, disagreeable, possible paranoia Duration: can be several days Seizure frequency #1.) weekly? #2.) every month? ?? Date of last seizure #1) past 2 weeks #2.) early 11/2021 Home ASMs: Name Pill Size Frequency Total/day Level Levetiractam 1000 mg tab 2 - 2 4,000mg/day 58 (09/01/20) Depakote DR 500 mg tab 1 - [address] 250 mg tab 1 - 1 1,500mg/day 87.2 (10/07/21) Lacosamide 200 mg tab 1??- 1 400mg/day 11.5 (09/01/21) Current ASMs: 12/21/2021 Levetiracetam 2,000mg am, 2,000mg pm Depakote 750mg am, 750mg pm Lacosamide 200mg am, 200mg pm Failed Medications: Phenytoin Oxcarbazepine Hyponatremia Eslicabazepine Erratic Clonazepam Excessive somnolence at 4 mg/day/hallucinations Valtoco- was not using, did not want refills Primary Neurology Provider: Yana Rm PROJECTION TECHNICIAN-C Prior EEGs: 08/20/2020: Dr. Raymundo This is an abnormal cEEG due to 1) right focal electrographic seizures (resolved), 2) occasional right sided spikes and sharp waves, 3) right sided slowing, 4) generalized slowing. 08/15/2020 Dr. Raymundo This is an abnormal cEEG due to 1) frequent right focal electrographic seizures, 2) right sided slowing, 3) generalized slowing. ?? 04/[address] Feliciano This is an abnormal cEEG due to 1) focal onset seizures, 2) right hemispheric epileptiform discharges and lateralized periodic discharges (LPDs), 3) lateralized right hemispheric slowing, and 4) moderate generalized slowing. ?? 10/15/[address] Carmen This is an abnormal EEG. The abnormalities [...] 2. Right hemisphere lateralized slowing with right temporal??focal slowing, suggestive of underlinestructure/functional abnormalities. ?? 08/12/2015. Dr. Suazo This is a normal awake and drowsy EEG Prior Imagin05/01/2021: CT head wo contrast: [facility] 1.No acute intracranial hemorrhage. 2.No evidence of acute fracture in the cervical spine. 3.Advanced degenerative disc disease at C5-C6 and C6-C7. ?? 02/25/2021: CT Brain Stroke; [facility] 1. No acute hemorrhage or large acute infarction. 2. Chronic moderate cerebral and cerebellar volume loss with chronic microvascular ischemic disease with multiple bilateral basal ganglia and thalamic microinfarctions. 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 ?? 08/15/2020: MRI Brain WO Contrast: [facility] 1.Motion limited study. Within this limitation, no acute intracranial abnormality. 2.Extensive cerebral, cerebellar and brainstem atrophy, significantly greater than expected for age. 3.Extensive atrophy of the right hippocampus, asymmetric as compared to the left. There is likely increased FLAIR signal in the residual right hippocampus. These findings are related to chronic seizures. ?? 08/13/2020: CT head WO Contrast: [facility] 1.No [...] be excluded. Clinical correlation/ENT consult is recommended. Past Medical History No history on file. Past Medical History: Diagnosis Date ??? CVA (cerebral vascular accident) ??? HTN (hypertension) ??? Seizure No past surgical history on file. Allergies Allergies Allergen Reactions ??? Clonazepam Psychiatric hallucinations Family History No family history on file. Social History Social History Social History Narrative ??? Not on file Review of Systems General Negative except per HPI Eyes Negative except per HPI ENT Negative except per HPI Pulmonary Negative except per HPI Cardiac Negative except per HPI GI Negative except per HPI Negative except per HPI Neurologic Per HPI Psychiatric Negative except per HPI Skeletal Negative except per HPI Endocrine Negative except per HPI Infectious Negative except per HPI Objective: Ht 5' 11 (1.803 m) Wt 130 lb (59 kg) Exam: General Cortical Function Mental Status Awake, alert, follows commands Orientation Person, place, situation, disoriented to time Language Fluency intact, comprehension intact Visual Ivan Intact bilaterally to confrontation Neglect No visual neglect noted, no tactile neglect noted Cranial Nerves II Pupils 2 mm and bilaterally reactive to light. VIII Hearing is intact bilaterally to finger rub. III/IV/ Extraocular muscles intact. No diplopia, ptosis, nystagmus noted. IX/X Palate elevated symmetrically V Facial sensation symmetric to light touch and intact bilaterally. XI Head turning and shoulder shrug are intact. VII No facial palsy noted. XII Tongue is midline with normal movements and no atrophy noted. Motor Function Movement No abnormalities noted Bulk No abnormalities noted Tone No abnormalities noted Proximal Upper Distal Upper Proximal Lower Distal Lower Right 5/5 5/5 5/5 5/5 Left 5/5 5/5 5/5 5/5 Sensory Light Touch Symmetric and intact bilaterally Labs: CBC: pending CMP: pending Valproic acid level: pending Levetiracetam level: pending Lacosamide level: pending Assessment: Bi Tabor is a 61 year old male with a medical history significant for alcohol abuse (resolved 2015), CVA, HTN, HLD, prior head injury, cervical osteoarthritis, anxiety, Alzheimer's (early onset) and refractory epilepsy, admitted for continuous video EEG monitoring to quantify seizure burden andfor medication adjustments. Plan: - Start continuous video EEG monitoring, cardiac telemetry, and pulse oximetry. - Obtain vital signs q8h, ins/outs tid, neuro checks bid. - Obtain one-time routine labs: CMP, CBC - Obtain one-time valproic acid level, levetiracetam level, lacosamide level - Continue ASMs: levetiracetam 2,000mg BID, Depakote 750mg BID, lacosamide 200mg BID -Continue treatment of HTN: amlodipine 5mg daily -Continue anti-platelet treatment: aspirin 81mg daily -Continue treatment of HLD: atorvastatin 40mg daily -Continue treatment of urinary retention: tamsulosin 0.4mg daily -Continue supplement replacement: vitamin D3 1,000 units daily -Continue treatment of chronic pain: acetaminophen Q6 hours prn, ibuprofen Q6 hours prn - Fall and Seizure precautions, Regular Diet, Lovenox for DVT ppx. Discussed with Attending Physician, Dr. Breanne Rm, KOLTON-DIRECTOR OF SPECIAL EDUCATION -[facility] #[id number] Associated attestation - Sean Raymundo DO - 12/21/2021 4:33 PM CDT Patient seen and examined on 12/21/2021. I agree with the findings and plan as outlined in the DEMETRA note. 70 minutes was spent in the care of this patient, of this 40 minutes were spent by me and 30 minutes by the DEMETRA. This time was spent reviewing the available records, coordinating the patients care with the inpatient team, and in [id number] time with the patient counseling them on the procedure for inpatient admission, the plan for the hospitalization and the goals and expectations of the EMU admission documented in this encounter Procedure Notes * Sean Raymundo DO - 01/05/2022 3:04 PM CDT EMU EEG REPORT Patient Name: Bi Tabor EEG#: [id number] Recording Start Time: 10:16 AM 12/28/2021 Epoch Start Time: 05:00 AM 01/05/2022 Epoch Stop Time: 12:31 PM 01/05/2022 Clinical History: Bi Tabor is a 61 year old male with spells concerning for seizures. Epilepsy monitoring was performed for characterization of event and quantifying seizure burden. Semiology:? - Aura?Unsure, just a feeling I'm going to have a seizure ?? - Ictus?#1.) staring off events ?Duration: few seconds ?#2.) ??Convulsions, with tongue injury ?Duration: few minutes ? - Post-ictus?Confusion, aggression, disagreeable, possible paranoia ?Duration: can be several days ? Home ASMs: Name?Pill Size?Frequency?Total/ day?Level? Levetiractam?1000 mg tab ?2 - 2 ?4,000mg/day ?58 (09/01/20) Depakote DR ?500 mg tab?1 - 1 ? Depakote DR ?250 mg tab?1 - 1 ?1,500mg/day ?87.2??(10/07/21) Lacosamide ?200 mg tab?1??- 1 ?400mg/day?11.5 (09/01/21) ?? Current ASMs: 12/28/2021: Levetiracetam 2000 mg AM, Depakote DR 750 mg BID, Vimpat 200 mg BID, Briviact 100 mg BID 12/29/2021: Ativan IV 1 mg x 1 2 mg x 1, Briviact 200 mg AM, Depakote IV 500 TID, Vimpat IV 200 BID, Levetiracetam 3600 mg IV x 1, 1000 mg IV x 1 12/30/2021: Ativan 3 mg IV x 1, Depakote IV 500 mg Q6 hours, Vimpat 200 mg BID, Levetiracetam 2000 mgBID, Versed 2 mg x 5, Ativan 4 mg x 1 12/31/2021: Depakote IV 500 mg Q6 hours, Vimpat 200 mg BID, Levetiracetam 2000 mg BID, Clobazam 10 mgBID, Versed 2 mg IV x 4 01/01/2022: Depakote IV 500 mg Q6 hours, Vimpat 200 mg BID, Levetiracetam 2000 mg BID, Clobazam 10 mgBID and clobazam 10 mg x 1, Versed 2 mg IV x 2 01/02/2022: Depakote IV 500 mg Q6 hours, Vimpat 200 mg BID, Levetiracetam 2000 mg BID, Clobazam 10 mgBID, Versed 2 mg IV x 1 01/03/2022: Depakote 500 mg Q6 hours, Vimpat 200 mg BID, Levetiracetam 2000 mg BID, Clobazam 10 mg BID 01/04/2022: Depakote 500 mg Q6 hours, Vimpat 200 mg BID, Levetiracetam 2000 mg BID, Clobazam 10 mg BID 01/05/2022: Depakote 500 mg Q6 hours, Vimpat 200 mg BID, Levetiracetam 2000 mg BID, Clobazam 10 mg BID Description: This is a continuous video EEG monitoring is 21-channels; consisting of 20 channels of EEG obtainedfrom electrodes placed on the scalp according to the international 10-20 system, T1 and T2 electrodes, and one channel of EKG monitoring. The study was performed as a part of epilepsy monitoring protocol, with the patient continuously under observation, and EEG reviewed by an Epileptologist daily Background: Epoch Start Time: 10:16 AM 12/28/2021 Epoch Stop Time: 05:00 AM 12/29/2021 The background was symmetric. Posterior dominant rhythm was 8 Hz of normal amplitude. Stage 1 sleepwas identified in the form of background attenuation, roving eye movements, and vertex waves. Stage2 sleep was identified in the form of K-complexes and spindles. Slow wave sleep was identified in the form of higher amplitude polymorphic delta activity. Admixed polymorphic theta and delta activity were seen over the right hemisphere. Frequent bursts of rhythmic alpha frequency activity with subsequent evolution were seen maximally over the right posterior quadrant. These were associated with left face and arm clonic movements. These usually lasted less than 1 minute to 1 20 seconds. As the first epoch continued the seizures became longer (closer the 1 minute 20 second henrietta than the less than a minute) and involved more clinical movements. These occurred approximately 8-10 per hour. Activation procedures were not performed. Epoch Start Time: 05:00 AM 12/29/2021 Epoch Stop Time: 05:00 AM 12/30/2021 The background was asymmetric. Posterior dominant rhythm was often absent, when present up to 7 Hz better formed on left of normal amplitude. Normal sleep architecture was not seen. Admixed polymorphic theta and delta activity were seen over the right hemisphere. Similarly frequent bursts of rhythmic activity were seen to the first epoch with variable left-sided clonic involvement. In the early part of this epoch patient received lorazepam IV, and the duration of the seizures became less and clinical manifestations were less pronounced, but the frequency ofthe seizures continued around 8 per hour. As the epoch continued the seizures became more prominent lasting longer and having more prominent clinical manifestations. Activation procedures were not performed. Epoch Start Time: 05:00 AM 12/30/2021 Epoch Stop Time: 05:00 AM 12/31/2021 The background was asymmetric. Posterior dominant rhythm was often absent, when present up to 7 Hz better formed on left of normal amplitude. Normal sleep architecture was not seen. Admixed polymorphic theta and delta activity were seen over the right hemisphere. Similar electro-clinical seizures were seen as in previous epochs. Their intensity and frequency fluctuated significantly during the epoch with 8-10 seizures per hour near the beginning of the epoch to 1-2 per hour around the first dosing of Versed (around 12:00 PM 12/30) back toward 5-6/hour at the end of this epoch. At the end of the epoch, the seizures had no clear clinical correlate. Activation procedures were not performed. Epoch Start Time: 05:00 AM 12/31/2021 Epoch Stop Time: 05:00 AM 01/01/2022 The background was asymmetric. Posterior dominant rhythm was often absent, when present up to 7 Hz better formed on left of normal amplitude. Normal sleep architecture was not seen. Admixed polymorphic theta and delta activity were seen over the right hemisphere. Similar electro-clinical seizures were seen as in previous epochs. Their intensity and frequency was decreased compared to previous epochs. More commonly the seizures lacked a definite clinical correlate on video review. Activation procedures were not performed. Epoch Start Time: 05:00 AM 01/01/2022 Epoch Stop Time: 05:00 AM 01/02/2022 The background was asymmetric. Posterior dominant rhythm was often absent, when present up to 7 Hz better formed on left of normal amplitude. Normal sleep architecture was not seen. Admixed polymorphic theta and delta activity were seen over the right hemisphere. Continued electro-clinical seizures were seen. Their intensity and frequency continued to decrease compared to previous epochs. More commonly the seizures lacked a definite clinical correlate on video review. In the beginning of this epoch 8 seizures were seen from 06:00 to 07:00 AM. In the latter portion of the epoch (from 21:00 PM to 05:00 AM) only 3 seizures were seen. Activation procedures were not performed. Epoch Start Time: 05:00 AM 01/02/2022 Epoch Stop Time: 05:00 AM 01/03/2022 The background was asymmetric. Posterior dominant rhythm was often absent, when present up to 7-8 Hz better formed on left of normal amplitude. Normal sleep architecture was seen. Admixed polymorphictheta and delta activity were seen over the right hemisphere. Continued electro-clinical seizures were seen. Their intensity and frequency continued to decrease compared to previous epochs. In this epoch, no seizures were seen from 05:00 AM 01/02 to 15:55 PM 01/02.This was followed by a cluster of electrographic seizures lasting until 17:24 PM. No further seizures were seen for the remainder of the epoch. Activation procedures were not performed. Epoch Start Time: 05:00 AM 01/03/2022 Epoch Stop Time: 05:00 AM 01/04/2022 The background was asymmetric. Posterior dominant rhythm was noted up to 8 Hz better formed on leftof normal amplitude. Normal sleep architecture was seen. Admixed polymorphic theta and delta activity were seen over the right hemisphere. Activation procedures were not performed. Epoch Start Time: 05:00 AM 01/04/2022 Epoch Stop Time: 05:00 AM 01/05/2022 The background was asymmetric. Posterior dominant rhythm was noted up to 8 Hz better formed on leftof normal amplitude. Normal sleep architecture was seen. Admixed polymorphic theta and delta activity were seen over the right hemisphere. Activation procedures were not performed. Epoch Start Time: 05:00 AM 01/05/2022 Epoch Stop Time: 12:31 PM 01/05/2022 The background was asymmetric. Posterior dominant rhythm was noted up to 8-9 Hz better formed on left of normal amplitude. Normal sleep architecture was seen. Admixed polymorphic theta and delta activity were seen over the right hemisphere. Activation procedures were not performed. EKG was observed throughout the recording. 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 With continued area of focal cortical dysfunction. Sean Raymundo DO * Gianna August - 01/05/2022 12:47 PM CDT Patient was unhooked from continuous EEG. * Sean Raymundo DO - 01/05/2022 12:20 PM CDT [facility] EEG REPORT Patient Name: Bi Tabor EEG#: [id number] Recording Start Time: 10:16 AM 12/28/2021 Epoch Start Time: 05:00 AM 01/04/2022 Epoch Stop Time: 05:00 AM 01/05/2022 Clinical History: Bi Tabor is a 61 year old male with spells concerning for seizures. Epilepsy monitoring was performed for characterization of event and quantifying seizure burden. Semiology:? - Aura?Unsure, just a feeling I'm going to have a seizure ?? - Ictus?#1.) staring off events ?Duration: few seconds ?#2.) ??Convulsions, with tongue injury ?Duration: few minutes ? - Post-ictus?Confusion, aggression, disagreeable, possible paranoia ?Duration: can be several days ? Home ASMs: Name?Pill Size?Frequency?Total/ day?Level? Levetiractam?1000 mg tab ?2 - 2 ?4,000mg/day ?58 (09/01/20) Depakote DR ?500 mg tab?1 - 1 ? [address] ?250 mg tab?1 - 1 ?1,500mg/day ?87.2??(10/07/21) Lacosamide ?200 mg tab?1??- 1 ?400mg/day?11.5 (09/01/21) ?? Current ASMs: 12/28/2021: Levetiracetam 2000 mg AM, Depakote DR 750 mg BID, Vimpat 200 mg BID, Briviact 100 mg BID 12/29/2021: Ativan IV 1 mg x 1 2 mg x 1, Briviact 200 mg AM, Depakote IV 500 TID, Vimpat IV 200 BID, Levetiracetam 3600 mg IV x 1, 1000 mg IV x 1 12/30/2021: Ativan 3 mg IV x 1, Depakote IV 500 mg Q6 hours, Vimpat 200 mg BID, Levetiracetam 2000 mgBID, Versed 2 mg x 5, Ativan 4 mg x 1 12/31/2021: Depakote IV 500 mg Q6 hours, Vimpat 200 mg BID, Levetiracetam 2000 mg BID, Clobazam 10 mgBID, Versed 2 mg IV x 4 01/01/2022: Depakote IV 500 mg Q6 hours, Vimpat 200 mg BID, Levetiracetam 2000 mg BID, Clobazam 10 mgBID and clobazam 10 mg x 1, Versed 2 mg IV x 2 01/02/2022: Depakote IV 500 mg Q6 hours, Vimpat 200 mg BID, Levetiracetam 2000 mg BID, Clobazam 10 mgBID, Versed 2 mg IV x 1 01/03/2022: Depakote 500 mg Q6 hours, Vimpat 200 mg BID, Levetiracetam 2000 mg BID, Clobazam 10 mg BID 01/04/2022: Depakote 500 mg Q6 hours, Vimpat 200 mg BID, Levetiracetam 2000 mg BID, Clobazam 10 mg BID Description: This is a continuous video EEG monitoring is 21-channels; consisting of 20 channels of EEG obtainedfrom electrodes placed on the scalp according to the international 10-20 system, T1 and T2 electrodes, and one channel of EKG monitoring. The study was performed as a part of epilepsy monitoring protocol, with the patient continuously under observation, and EEG reviewed by an Epileptologist daily Background: Epoch Start Time: 10:16 AM 12/28/2021 Epoch Stop Time: 05:00 AM 12/29/2021 The background was symmetric. Posterior dominant rhythm was 8 Hz of normal amplitude. Stage 1 sleepwas identified in the form of background attenuation, roving eye movements, and vertex waves. Stage2 sleep was identified in the form of K-complexes and spindles. Slow wave sleep was identified in the form of higher amplitude polymorphic delta activity. Admixed polymorphic theta and delta activity were seen over the right hemisphere. Frequent bursts of rhythmic alpha frequency activity with subsequent evolution were seen maximally over the right posterior quadrant. These were associated with left face and arm clonic movements. These usually lasted less than 1 minute to 1 20 seconds. As the first epoch continued the seizures became longer (closer the 1 minute 20 second henrietta than the less than a minute) and involved more clinical movements. These occurred approximately 8-10 per hour. Activation procedures were not performed. Epoch Start Time: 05:00 AM 12/29/2021 Epoch Stop Time: 05:00 AM 12/30/2021 The background was asymmetric. Posterior dominant rhythm was often absent, when present up to 7 Hz better formed on left of normal amplitude. Normal sleep architecture was not seen. Admixed polymorphic theta and delta activity were seen over the right hemisphere. Similarly frequent bursts of rhythmic activity were seen to the first epoch with variable left-sided clonic involvement. In the early part of this epoch patient received lorazepam IV, and the duration of the seizures became less and clinical manifestations were less pronounced, but the frequency ofthe seizures continued around 8 per hour. As the epoch continued the seizures became more prominent lasting longer and having more prominent clinical manifestations. Activation procedures were not performed. Epoch Start Time: 05:00 AM 12/30/2021 Epoch Stop Time: 05:00 AM 12/31/2021 The background was asymmetric. Posterior dominant rhythm was often absent, when present up to 7 Hz better formed on left of normal amplitude. Normal sleep architecture was not seen. Admixed polymorphic theta and delta activity were seen over the right hemisphere. Similar electro-clinical seizures were seen as in previous epochs. Their intensity and frequency fluctuated significantly during the epoch with 8-10 seizures per hour near the beginning of the epoch to 1-2 per hour around the first dosing of Versed (around 12:00 PM 12/30) back toward 5-6/hour at the end of this epoch. At the end of the epoch, the seizures had no clear clinical correlate. Activation procedures were not performed. Epoch Start Time: 05:00 AM 12/31/2021 Epoch Stop Time: 05:00 AM 01/01/2022 The background was asymmetric. Posterior dominant rhythm was often absent, when present up to 7 Hz better formed on left of normal amplitude. Normal sleep architecture was not seen. Admixed polymorphic theta and delta activity were seen over the right hemisphere. Similar electro-clinical seizures were seen as in previous epochs. Their intensity and frequency was decreased compared to previous epochs. More commonly the seizures lacked a definite clinical correlate on video review. Activation procedures were not performed. Epoch Start Time: 05:00 AM 01/01/2022 Epoch Stop Time: 05:00 AM 01/02/2022 The background was asymmetric. Posterior dominant rhythm was often absent, when present up to 7 Hz better formed on left of normal amplitude. Normal sleep architecture was not seen. Admixed polymorphic theta and delta activity were seen over the right hemisphere. Continued electro-clinical seizures were seen. Their intensity and frequency continued to decrease compared to previous epochs. More commonly the seizures lacked a definite clinical correlate on video review. In the beginning of this epoch 8 seizures were seen from 06:00 to 07:00 AM. In the latter portion of the epoch (from 21:00 PM to 05:00 AM) only 3 seizures were seen. Activation procedures were not performed. Epoch Start Time: 05:00 AM 01/02/2022 Epoch Stop Time: 05:00 AM 01/03/2022 The background was asymmetric. Posterior dominant rhythm was often absent, when present up to 7-8 Hz better formed on left of normal amplitude. Normal sleep architecture was seen. Admixed polymorphictheta and delta activity were seen over the right hemisphere. Continued electro-clinical seizures were seen. Their intensity and frequency continued to decrease compared to previous epochs. In this epoch, no seizures were seen from 05:00 AM 01/02 to 15:55 PM 01/02.This was followed by a cluster of electrographic seizures lasting until 17:24 PM. No further seizures were seen for the remainder of the epoch. Activation procedures were not performed. Epoch Start Time: 05:00 AM 01/03/2022 Epoch Stop Time: 05:00 AM 01/04/2022 The background was asymmetric. Posterior dominant rhythm was noted up to 8 Hz better formed on leftof normal amplitude. Normal sleep architecture was seen. Admixed polymorphic theta and delta activity were seen over the right hemisphere. Activation procedures were not performed. Epoch Start Time: 05:00 AM 01/04/2022 Epoch Stop Time: 05:00 AM 01/05/2022 The background was asymmetric. Posterior dominant rhythm was noted up to 8 Hz better formed on leftof normal amplitude. Normal sleep architecture was seen. Admixed polymorphic theta and delta activity were seen over the right hemisphere. Activation procedures were not performed. EKG was observed throughout the recording. 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 With continued area of focal cortical dysfunction. Sean Raymundo, DO * Danish Connors - 01/05/2022 9:48 AM CDTProcedure(s): EEG VIDEO MONITORING Corrected the impedance of 2 electrodes. All electrode impedances are below 10k Ohms. Slight skin breakdown under Fp2. Moved electrode 2mm lateral toward F8. * Loraine Vargas - 01/05/2022 12:44 AM CDT EEG CHECK,NAME,DATE,NUMBER CORRECT,STUDY ON THE NETWORK,ELECTRODE IMPEDANCES LESS THAN 10 KOHMS,PATRIAL VITALS WAS RECORDED ON EEG * Sean Raymundo DO - 01/04/2022 9:37 AM CDT [facility] EEG REPORT Patient Name: Bi Tabor EEG#: [id number] Recording Start Time: 10:16 AM 12/28/2021 Epoch Start Time: 05:00 AM 01/03/2022 Epoch Stop Time: 05:00 AM 01/04/2022 Clinical History: Bi Tabor is a 61 year old male with spells concerning for seizures. Epilepsy monitoring was performed for characterization of event and quantifying seizure burden. Semiology:? - Aura?Unsure, just a feeling I'm going to have a seizure ?? - Ictus?#1.) staring off events ?Duration: few seconds ?#2.) ??Convulsions, with tongue injury ?Duration: few minutes ? - Post-ictus?Confusion, aggression, disagreeable, possible paranoia ?Duration: can be several days ? Home ASMs: Name?Pill Size?Frequency?Total/ day?Level? Levetiractam?1000 mg tab ?2 - 2 ?4,000mg/day ?58 (09/01/20) Depakote DR ?500 mg tab?1 - 1 ? Dep[address] DR ?250 mg tab?1 - 1 ?1,500mg/day ?87.2??(10/07/21) Lacosamide ?200 mg tab?1??- 1 ?400mg/day?11.5 (09/01/21) ?? Current ASMs: 12/28/2021: Levetiracetam 2000 mg AM, Depakote DR 750 mg BID, Vimpat 200 mg BID, Briviact 100 mg BID 12/29/2021: Ativan IV 1 mg x 1 2 mg x 1, Briviact 200 mg AM, Depakote IV 500 TID, Vimpat IV 200 BID, Levetiracetam 3600 mg IV x 1, 1000 mg IV x 1 12/30/2021: Ativan 3 mg IV x 1, Depakote IV 500 mg Q6 hours, Vimpat 200 mg BID, Levetiracetam 2000 mgBID, Versed 2 mg x 5, Ativan 4 mg x 1 12/31/2021: Depakote IV 500 mg Q6 hours, Vimpat 200 mg BID, Levetiracetam 2000 mg BID, Clobazam 10 mgBID, Versed 2 mg IV x 4 01/01/2022: Depakote IV 500 mg Q6 hours, Vimpat 200 mg BID, Levetiracetam 2000 mg BID, Clobazam 10 mgBID and clobazam 10 mg x 1, Versed 2 mg IV x 2 01/02/2022: Depakote IV 500 mg Q6 hours, Vimpat 200 mg BID, Levetiracetam 2000 mg BID, Clobazam 10 mgBID, Versed 2 mg IV x 1 01/03/2022: Depakote 500 mg Q6 hours, Vimpat 200 mg BID, Levetiracetam 2000 mg BID, Clobazam 10 mg BID Description: This is a continuous video EEG monitoring is 21-channels; consisting of 20 channels of EEG obtainedfrom electrodes placed on the scalp according to the international 10-20 system, T1 and T2 electrodes, and one channel of EKG monitoring. The study was performed as a part of epilepsy monitoring protocol, with the patient continuously under observation, and EEG reviewed by an Epileptologist daily Background: Epoch Start Time: 10:16 AM 12/28/2021 Epoch Stop Time: 05:00 AM 12/29/2021 The background was symmetric. Posterior dominant rhythm was 8 Hz of normal amplitude. Stage 1 sleepwas identified in the form of background attenuation, roving eye movements, and vertex waves. Stage2 sleep was identified in the form of K-complexes and spindles. Slow wave sleep was identified in the form of higher amplitude polymorphic delta activity. Admixed polymorphic theta and delta activity were seen over the right hemisphere. Frequent bursts of rhythmic alpha frequency activity with subsequent evolution were seen maximally over the right posterior quadrant. These were associated with left face and arm clonic movements. These usually lasted less than 1 minute to 1 20 seconds. As the first epoch continued the seizures became longer (closer the 1 minute 20 second henrietta than the less than a minute) and involved more clinical movements. These occurred approximately 8-10 per hour. Activation procedures were not performed. Epoch Start Time: 05:00 AM 12/29/2021 Epoch Stop Time: 05:00 AM 12/30/2021 The background was asymmetric. Posterior dominant rhythm was often absent, when present up to 7 Hz better formed on left of normal amplitude. Normal sleep architecture was not seen. Admixed polymorphic theta and delta activity were seen over the right hemisphere. Similarly frequent bursts of rhythmic activity were seen to the first epoch with variable left-sided clonic involvement. In the early part of this epoch patient received lorazepam IV, and the duration of the seizures became less and clinical manifestations were less pronounced, but the frequency ofthe seizures continued around 8 per hour. As the epoch continued the seizures became more prominent lasting longer and having more prominent clinical manifestations. Activation procedures were not performed. Epoch Start Time: 05:00 AM 12/30/2021 Epoch Stop Time: 05:00 AM 12/31/2021 The background was asymmetric. Posterior dominant rhythm was often absent, when present up to 7 Hz better formed on left of normal amplitude. Normal sleep architecture was not seen. Admixed polymorphic theta and delta activity were seen over the right hemisphere. Similar electro-clinical seizures were seen as in previous epochs. Their intensity and frequency fluctuated significantly during the epoch with 8-10 seizures per hour near the beginning of the epoch to 1-2 per hour around the first dosing of Versed (around 12:00 PM 12/30) back toward 5-6/hour at the end of this epoch. At the end of the epoch, the seizures had no clear clinical correlate. Activation procedures were not performed. Epoch Start Time: 05:00 AM 12/31/2021 Epoch Stop Time: 05:00 AM 01/01/2022 The background was asymmetric. Posterior dominant rhythm was often absent, when present up to 7 Hz better formed on left of normal amplitude. Normal sleep architecture was not seen. Admixed polymorphic theta and delta activity were seen over the right hemisphere. Similar electro-clinical seizures were seen as in previous epochs. Their intensity and frequency was decreased compared to previous epochs. More commonly the seizures lacked a definite clinical correlate on video review. Activation procedures were not performed. Epoch Start Time: 05:00 AM 01/01/2022 Epoch Stop Time: 05:00 AM 01/02/2022 The background was asymmetric. Posterior dominant rhythm was often absent, when present up to 7 Hz better formed on left of normal amplitude. Normal sleep architecture was not seen. Admixed polymorphic theta and delta activity were seen over the right hemisphere. Continued electro-clinical seizures were seen. Their intensity and frequency continued to decrease compared to previous epochs. More commonly the seizures lacked a definite clinical correlate on video review. In the beginning of this epoch 8 seizures were seen from 06:00 to 07:00 AM. In the latter portion of the epoch (from 21:00 PM to 05:00 AM) only 3 seizures were seen. Activation procedures were not performed. Epoch Start Time: 05:00 AM 01/02/2022 Epoch Stop Time: 05:00 AM 01/03/2022 The background was asymmetric. Posterior dominant rhythm was often absent, when present up to 7-8 Hz better formed on left of normal amplitude. Normal sleep architecture was seen. Admixed polymorphictheta and delta activity were seen over the right hemisphere. Continued electro-clinical seizures were seen. Their intensity and frequency continued to decrease compared to previous epochs. In this epoch, no seizures were seen from 05:00 AM 01/02 to 15:55 PM 01/02.This was followed by a cluster of electrographic seizures lasting until 17:24 PM. No further seizures were seen for the remainder of the epoch. Activation procedures were not performed. Epoch Start Time: 05:00 AM 01/03/2022 Epoch Stop Time: 05:00 AM 01/04/2022 The background was asymmetric. Posterior dominant rhythm was noted up to 8 Hz better formed on leftof normal amplitude. Normal sleep architecture was seen. Admixed polymorphic theta and delta activity were seen over the right hemisphere. Activation procedures were not performed. EKG was observed throughout the recording. 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 With continued area of focal cortical dysfunction. Sean Raymundo DO * Gianna August - 01/04/2022 9:22 AM CDT Checked electrodes and all impedances are under 10 ohms and FP1 the skin looks good. * Aníbal Hopkins - 01/04/2022 6:16 AM CDT Patient electrodes were checked, C3, P3, P4, T1 were fixed, name, date, EEG number was correct, allelectrodes are under 10 kOhms. * Loretta Murphy - 01/03/2022 6:30 PM CDT Pt moved from 305 to 507. Hansa turned machine back on as it was not on when pt was moved. She also did checks while she was in the room. * Loretta Murphy - 01/03/2022 11:05 AM CDT Skin check on Fp1 was done. No break down noted. All other electrodes looked good, as well as impedences. Vitals were documented, and pt was able to follow command of wiggling toes. * Sean Raymundo DO - 01/03/2022 8:33 AM CDT [facility] EEG REPORT Patient Name: Bi Tabor EEG#: [id number] Recording Start Time: 10:16 AM 12/28/2021 Epoch Start Time: 05:00 AM 01/02/2022 Epoch Stop Time: 05:00 AM 01/03/2022 Clinical History: Bi Tabor is a 61 year old male with spells concerning for seizures. Epilepsy monitoring was performed for characterization of event and quantifying seizure burden. Semiology:? - Aura?Unsure, just a feeling I'm going to have a seizure ?? - Ictus?#1.) staring off events ?Duration: few seconds ?#2.) ??Convulsions, with tongue injury ?Duration: few minutes ? - Post-ictus?Confusion, aggression, disagreeable, possible paranoia ?Duration: can be several days ? Home ASMs: Name?Pill Size?Frequency?Total/ day?Level? Levetiractam?1000 mg tab ?2 - 2 ?4,000mg/day ?58 (09/01/20) Depakote DR ?500 mg tab?1 - 1 ? Dep[address]ote DR ?250 mg tab?1 - 1 ?1,500mg/day ?87.2??(10/07/21) Lacosamide ?200 mg tab?1??- 1 ?400mg/day?11.5 (09/01/21) ?? Current ASMs: 12/28/2021: Levetiracetam 2000 mg AM, Depakote DR 750 mg BID, Vimpat 200 mg BID, Briviact 100 mg BID 12/29/2021: Ativan IV 1 mg x 1 2 mg x 1, Briviact 200 mg AM, Depakote IV 500 TID, Vimpat IV 200 BID, Levetiracetam 3600 mg IV x 1, 1000 mg IV x 1 12/30/2021: Ativan 3 mg IV x 1, Depakote IV 500 mg Q6 hours, Vimpat 200 mg BID, Levetiracetam 2000 mgBID, Versed 2 mg x 5, Ativan 4 mg x 1 12/31/2021: Depakote IV 500 mg Q6 hours, Vimpat 200 mg BID, Levetiracetam 2000 mg BID, Clobazam 10 mgBID, Versed 2 mg IV x 4 01/01/2022: Depakote IV 500 mg Q6 hours, Vimpat 200 mg BID, Levetiracetam 2000 mg BID, Clobazam 10 mgBID and clobazam 10 mg x 1, Versed 2 mg IV x 2 01/02/2022: Depakote IV 500 mg Q6 hours, Vimpat 200 mg BID, Levetiracetam 2000 mg BID, Clobazam 10 mgBID, Versed 2 mg IV x 1 Description: This is a continuous video EEG monitoring is 21-channels; consisting of 20 channels of EEG obtainedfrom electrodes placed on the scalp according to the international 10-20 system, T1 and T2 electrodes, and one channel of EKG monitoring. The study was performed as a part of epilepsy monitoring protocol, with the patient continuously under observation, and EEG reviewed by an Epileptologist daily Background: Epoch Start Time: 10:16 AM 12/28/2021 Epoch Stop Time: 05:00 AM 12/29/2021 The background was symmetric. Posterior dominant rhythm was 8 Hz of normal amplitude. Stage 1 sleepwas identified in the form of background attenuation, roving eye movements, and vertex waves. Stage2 sleep was identified in the form of K-complexes and spindles. Slow wave sleep was identified in the form of higher amplitude polymorphic delta activity. Admixed polymorphic theta and delta activity were seen over the right hemisphere. Frequent bursts of rhythmic alpha frequency activity with subsequent evolution were seen maximally over the right posterior quadrant. These were associated with left face and arm clonic movements. These usually lasted less than 1 minute to 1 20 seconds. As the first epoch continued the seizures became longer (closer the 1 minute 20 second henrietta than the less than a minute) and involved more clinical movements. These occurred approximately 8-10 per hour. Activation procedures were not performed. Epoch Start Time: 05:00 AM 12/29/2021 Epoch Stop Time: 05:00 AM 12/30/2021 The background was asymmetric. Posterior dominant rhythm was often absent, when present up to 7 Hz better formed on left of normal amplitude. Normal sleep architecture was not seen. Admixed polymorphic theta and delta activity were seen over the right hemisphere. Similarly frequent bursts of rhythmic activity were seen to the first epoch with variable left-sided clonic involvement. In the early part of this epoch patient received lorazepam IV, and the duration of the seizures became less and clinical manifestations were less pronounced, but the frequency ofthe seizures continued around 8 per hour. As the epoch continued the seizures became more prominent lasting longer and having more prominent clinical manifestations. Activation procedures were not performed. Epoch Start Time: 05:00 AM 12/30/2021 Epoch Stop Time: 05:00 AM 12/31/2021 The background was asymmetric. Posterior dominant rhythm was often absent, when present up to 7 Hz better formed on left of normal amplitude. Normal sleep architecture was not seen. Admixed polymorphic theta and delta activity were seen over the right hemisphere. Similar electro-clinical seizures were seen as in previous epochs. Their intensity and frequency fluctuated significantly during the epoch with 8-10 seizures per hour near the beginning of the epoch to 1-2 per hour around the first dosing of Versed (around 12:00 PM 12/30) back toward 5-6/hour at the end of this epoch. At the end of the epoch, the seizures had no clear clinical correlate. Activation procedures were not performed. Epoch Start Time: 05:00 AM 12/31/2021 Epoch Stop Time: 05:00 AM 01/01/2022 The background was asymmetric. Posterior dominant rhythm was often absent, when present up to 7 Hz better formed on left of normal amplitude. Normal sleep architecture was not seen. Admixed polymorphic theta and delta activity were seen over the right hemisphere. Similar electro-clinical seizures were seen as in previous epochs. Their intensity and frequency was decreased compared to previous epochs. More commonly the seizures lacked a definite clinical correlate on video review. Activation procedures were not performed. Epoch Start Time: 05:00 AM 01/01/2022 Epoch Stop Time: 05:00 AM 01/02/2022 The background was asymmetric. Posterior dominant rhythm was often absent, when present up to 7 Hz better formed on left of normal amplitude. Normal sleep architecture was not seen. Admixed polymorphic theta and delta activity were seen over the right hemisphere. Continued electro-clinical seizures were seen. Their intensity and frequency continued to decrease compared to previous epochs. More commonly the seizures lacked a definite clinical correlate on video review. In the beginning of this epoch 8 seizures were seen from 06:00 to 07:00 AM. In the latter portion of the epoch (from 21:00 PM to 05:00 AM) only 3 seizures were seen. Activation procedures were not performed. Epoch Start Time: 05:00 AM 01/02/2022 Epoch Stop Time: 05:00 AM 01/03/2022 The background was asymmetric. Posterior dominant rhythm was often absent, when present up to 7-8 Hz better formed on left of normal amplitude. Normal sleep architecture was seen. Admixed polymorphictheta and delta activity were seen over the right hemisphere. Continued electro-clinical seizures were seen. Their intensity and frequency continued to decrease compared to previous epochs. In this epoch, no seizures were seen from 05:00 AM 01/02 to 15:55 PM 01/02.This was followed by a cluster of electrographic seizures lasting until 17:24 PM. No further seizures were seen for the remainder of the epoch. Activation procedures were not performed. EKG was observed throughout the recording. IMPRESSION This is an abnormal epilepsy monitoring recording due to 1) improving electro- clinical focal seizures 2) right hemispheric slowing CLINICAL CORRELATION: These findings indicate an acute ongoing, but improving focal epileptic process arising from the right parietal region broadly. Sean Raymundo DO * Aníbal Hopkins - 01/03/2022 7:02 AM CDT Patient electrodes were checked, O1, A2, F7, F8, P4, Pz, T8, P7, P8 were fixed. Name, date, and EEGnumber was correct. All electordes are under 10 kOhms. * Loretta Murphy - 01/02/2022 6:06 PM CDT Checks were done both this morning and this evening. This morning A2 and P8 were a little high, butthose were fixed. Skin check on A1 and A2 showed no skin break down. Pt was awake, but not able to follow commands really. Both this morning and this evening, network was good and recording looked good. * Sean Raymundo DO - 01/02/2022 8:14 AM CDT [facility] EEG REPORT Patient Name: Bi Tabor EEG#: [id number] Recording Start Time: 10:16 AM 12/28/2021 Epoch Start Time: 05:00 AM 01/01/2022 Epoch Stop Time: 05:00 AM 01/02/2022 Clinical History: Bi Tabor is a 61 year old male with spells concerning for seizures. Epilepsy monitoring was performed for characterization of event and quantifying seizure burden. Semiology:? - Aura?Unsure, just a feeling I'm going to have a seizure ?? - Ictus?#1.) staring off events ?Duration: few seconds ?#2.) ??Convulsions, with tongue injury ?Duration: few minutes ? - Post-ictus?Confusion, aggression, disagreeable, possible paranoia ?Duration: can be several days ? Home ASMs: Name?Pill Size?Frequency?Total/ day?Level? Levetiractam?1000 mg tab ?2 - 2 ?4,000mg/day ?58 (09/01/20) Depakote DR ?500 mg tab?1 - 1 ? Dep[address]ote DR ?250 mg tab?1 - 1 ?1,500mg/day ?87.2??(10/07/21) Lacosamide ?200 mg tab?1??- 1 ?400mg/day?11.5 (09/01/21) ?? Current ASMs: 12/28/2021: Levetiracetam 2000 mg AM, Depakote DR 750 mg BID, Vimpat 200 mg BID, Briviact 100 mg BID 12/29/2021: Ativan IV 1 mg x 1 2 mg x 1, Briviact 200 mg AM, Depakote IV 500 TID, Vimpat IV 200 BID, Levetiracetam 3600 mg IV x 1, 1000 mg IV x 1 12/30/2021: Ativan 3 mg IV x 1, Depakote IV 500 mg Q6 hours, Vimpat 200 mg BID, Levetiracetam 2000 mgBID, Versed 2 mg x 5, Ativan 4 mg x 1 12/31/2021: Depakote IV 500 mg Q6 hours, Vimpat 200 mg BID, Levetiracetam 2000 mg BID, Clobazam 10 mgBID, Versed 2 mg IV x 4 01/01/2022: Depakote IV 500 mg Q6 hours, Vimpat 200 mg BID, Levetiracetam 2000 mg BID, Clobazam 10 mgBID and clobazam 10 mg x 1, Versed 2 mg IV x 2 Description: This is a continuous video EEG monitoring is 21-channels; consisting of 20 channels of EEG obtainedfrom electrodes placed on the scalp according to the international 10-20 system, T1 and T2 electrodes, and one channel of EKG monitoring. The study was performed as a part of epilepsy monitoring protocol, with the patient continuously under observation, and EEG reviewed by an Epileptologist daily Background: Epoch Start Time: 10:16 AM 12/28/2021 Epoch Stop Time: 05:00 AM 12/29/2021 The background was symmetric. Posterior dominant rhythm was 8 Hz of normal amplitude. Stage 1 sleepwas identified in the form of background attenuation, roving eye movements, and vertex waves. Stage2 sleep was identified in the form of K-complexes and spindles. Slow wave sleep was identified in the form of higher amplitude polymorphic delta activity. Admixed polymorphic theta and delta activity were seen over the right hemisphere. Frequent bursts of rhythmic alpha frequency activity with subsequent evolution were seen maximally over the right posterior quadrant. These were associated with left face and arm clonic movements. These usually lasted less than 1 minute to 1 20 seconds. As the first epoch continued the seizures became longer (closer the 1 minute 20 second henrietta than the less than a minute) and involved more clinical movements. These occurred approximately 8-10 per hour. Activation procedures were not performed. Epoch Start Time: 05:00 AM 12/29/2021 Epoch Stop Time: 05:00 AM 12/30/2021 The background was asymmetric. Posterior dominant rhythm was often absent, when present up to 7 Hz better formed on left of normal amplitude. Normal sleep architecture was not seen. Admixed polymorphic theta and delta activity were seen over the right hemisphere. Similarly frequent bursts of rhythmic activity were seen to the first epoch with variable left-sided clonic involvement. In the early part of this epoch patient received lorazepam IV, and the duration of the seizures became less and clinical manifestations were less pronounced, but the frequency ofthe seizures continued around 8 per hour. As the epoch continued the seizures became more prominent lasting longer and having more prominent clinical manifestations. Activation procedures were not performed. Epoch Start Time: 05:00 AM 12/30/2021 Epoch Stop Time: 05:00 AM 12/31/2021 The background was asymmetric. Posterior dominant rhythm was often absent, when present up to 7 Hz better formed on left of normal amplitude. Normal sleep architecture was not seen. Admixed polymorphic theta and delta activity were seen over the right hemisphere. Similar electro-clinical seizures were seen as in previous epochs. Their intensity and frequency fluctuated significantly during the epoch with 8-10 seizures per hour near the beginning of the epoch to 1-2 per hour around the first dosing of Versed (around 12:00 PM 12/30) back toward 5-6/hour at the end of this epoch. At the end of the epoch, the seizures had no clear clinical correlate. Activation procedures were not performed. Epoch Start Time: 05:00 AM 12/31/2021 Epoch Stop Time: 05:00 AM 01/01/2022 The background was asymmetric. Posterior dominant rhythm was often absent, when present up to 7 Hz better formed on left of normal amplitude. Normal sleep architecture was not seen. Admixed polymorphic theta and delta activity were seen over the right hemisphere. Similar electro-clinical seizures were seen as in previous epochs. Their intensity and frequency was decreased compared to previous epochs. More commonly the seizures lacked a definite clinical correlate on video review. Activation procedures were not performed. Epoch Start Time: 05:00 AM 01/01/2022 Epoch Stop Time: 05:00 AM 01/02/2022 The background was asymmetric. Posterior dominant rhythm was often absent, when present up to 7 Hz better formed on left of normal amplitude. Normal sleep architecture was not seen. Admixed polymorphic theta and delta activity were seen over the right hemisphere. Continued electro-clinical seizures were seen. Their intensity and frequency continued to decrease compared to previous epochs. More commonly the seizures lacked a definite clinical correlate on video review. In the beginning of this epoch 8 seizures were seen from 06:00 to 07:00 AM. In the latter portion of the epoch (from 21:00 PM to 05:00 AM) only 3 seizures were seen. Activation procedures were not performed. EKG was observed throughout the recording. IMPRESSION This is an abnormal epilepsy monitoring recording due to 1) frequent, but improving electro-clinical focal seizures 2) right hemispheric slowing CLINICAL CORRELATION: These findings indicate an acute ongoing, but improving focal epileptic process arising from the right parietal region broadly. Sean Raymundo DO * Loraine Vargas - 01/02/2022 1:12 AM CDT EEG CHECK,NAME,DATE,NUMBER CORRECT,STUDY ON THE NETWORK,ELECTRODE IMPEDANCE LESS THAN 10 KOHMS,GELLED A1,F8,C3,P3,VITALS RECORDED ON EEG * GiannaAugust - 01/01/2022 6:47 PM CDT Checked electrodes and all impedances are under 10 ohms and FP1 the skin looks good. * Sean Raymundo DO - 01/01/2022 9:25 AM CDT [facility] EEG REPORT Patient Name: Bi Tabor EEG#: [id number] Recording Start Time: 10:16 AM 12/28/2021 Epoch Start Time: 05:00 AM 12/31/2021 Epoch Stop Time: 05:00 AM 01/01/2022 Clinical History: Bi Tabor is a 61 year old male with spells concerning for seizures. Epilepsy monitoring was performed for characterization of event and quantifying seizure burden. Semiology:? - Aura?Unsure, just a feeling I'm going to have a seizure ?? - Ictus?#1.) staring off events ?Duration: few seconds ?#2.) ??Convulsions, with tongue injury ?Duration: few minutes ? - Post-ictus?Confusion, aggression, disagreeable, possible paranoia ?Duration: can be several days ? Home ASMs: Name?Pill Size?Frequency?Total/ day?Level? Levetiractam?1000 mg tab ?2 - 2 ?4,000mg/day ?58 (4/5/21) Depakote DR ?500 mg tab?1 - 1 ? Depakote DR ?250 mg tab?1 - 1 ?1,500mg/day ?87.2??(10/07/21) Lacosamide ?200 mg tab?1??- 1 ?400mg/day?11.5 (09/01/21) ?? Current ASMs: 12/28/2021: Levetiracetam 2000 mg AM, Depakote DR 750 mg BID, Vimpat 200 mg BID, Briviact 100 mg BID 12/29/2021: Ativan IV 1 mg x 1 2 mg x 1, Briviact 200 mg AM, Depakote IV 500 TID, Vimpat IV 200 BID, Levetiracetam 3600 mg IV x 1, 1000 mg IV x 1 12/30/2021: Ativan 3 mg IV x 1, Depakote IV 500 mg Q6 hours, Vimpat 200 mg BID, Levetiracetam 2000 mgBID, Versed 2 mg x 5, Ativan 4 mg x 1 12/31/2021: Depakote IV 500 mg Q6 hours, Vimpat 200 mg BID, Levetiracetam 2000 mg BID, Clobazam 10 mgBID, Versed 2 mg IV x 4 Description: This is a continuous video EEG monitoring is 21-channels; consisting of 20 channels of EEG obtainedfrom electrodes placed on the scalp according to the international 10-20 system, T1 and T2 electrodes, and one channel of EKG monitoring. The study was performed as a part of epilepsy monitoring protocol, with the patient continuously under observation, and EEG reviewed by an Epileptologist daily Background: Epoch Start Time: 10:16 AM 12/28/2021 Epoch Stop Time: 05:00 AM 12/29/2021 The background was symmetric. Posterior dominant rhythm was 8 Hz of normal amplitude. Stage 1 sleepwas identified in the form of background attenuation, roving eye movements, and vertex waves. Stage2 sleep was identified in the form of K-complexes and spindles. Slow wave sleep was identified in the form of higher amplitude polymorphic delta activity. Admixed polymorphic theta and delta activity were seen over the right hemisphere. Frequent bursts of rhythmic alpha frequency activity with subsequent evolution were seen maximally over the right posterior quadrant. These were associated with left face and arm clonic movements. These usually lasted less than 1 minute to 1 20 seconds. As the first epoch continued the seizures became longer (closer the 1 minute 20 second henrietta than the less than a minute) and involved more clinical movements. These occurred approximately 8-10 per hour. Activation procedures were not performed. Epoch Start Time: 05:00 AM 12/29/2021 Epoch Stop Time: 05:00 AM 12/30/2021 The background was asymmetric. Posterior dominant rhythm was often absent, when present up to 7 Hz better formed on left of normal amplitude. Normal sleep architecture was not seen. Admixed polymorphic theta and delta activity were seen over the right hemisphere. Similarly frequent bursts of rhythmic activity were seen to the first epoch with variable left-sided clonic involvement. In the early part of this epoch patient received lorazepam IV, and the duration of the seizures became less and clinical manifestations were less pronounced, but the frequency ofthe seizures continued around 8 per hour. As the epoch continued the seizures became more prominent lasting longer and having more prominent clinical manifestations. Activation procedures were not performed. Epoch Start Time: 05:00 AM 12/30/2021 Epoch Stop Time: 05:00 AM 12/31/2021 The background was asymmetric. Posterior dominant rhythm was often absent, when present up to 7 Hz better formed on left of normal amplitude. Normal sleep architecture was not seen. Admixed polymorphic theta and delta activity were seen over the right hemisphere. Similar electro-clinical seizures were seen as in previous epochs. Their intensity and frequency fluctuated significantly during the epoch with 8-10 seizures per hour near the beginning of the epoch to 1-2 per hour around the first dosing of Versed (around 12:00 PM 12/30) back toward 5-6/hour at the end of this epoch. At the end of the epoch, the seizures had no clear clinical correlate. Activation procedures were not performed. Epoch Start Time: 05:00 AM 12/31/2021 Epoch Stop Time: 05:00 AM 01/01/2022 The background was asymmetric. Posterior dominant rhythm was often absent, when present up to 7 Hz better formed on left of normal amplitude. Normal sleep architecture was not seen. Admixed polymorphic theta and delta activity were seen over the right hemisphere. Similar electro-clinical seizures were seen as in previous epochs. Their intensity and frequency was decreased compared to previous epochs. More commonly the seizures lacked a definite clinical correlate on video review. Activation procedures were not performed. EKG was observed throughout the recording. IMPRESSION This is an abnormal epilepsy monitoring recording due to 1) frequent, but improving electro-clinical focal seizures 2) right hemispheric slowing CLINICAL CORRELATION: These findings indicate an acute ongoing, but improving focal epileptic process arising from the right parietal region broadly. Sean Raymundo DO * Loraine Vargas - 01/01/2022 12:29 AM CDT EEG CHECK,NAME,DATE,NUMBER CORRECT,STUDY ON THE NETWORK,ELECTRODES IMPEDANCE LESS THAN 10 KOHMS,VITALS RECORDED ON EEG * RaymundoSean Evelia, DO - 12/31/2021 8:47 AM CDT [facility] EEG REPORT Patient Name: Bi Tabor EEG#: [id number] Recording Start Time: 10:16 AM 12/28/2021 Epoch Start Time: 05:00 AM 12/30/2021 Epoch Stop Time: 05:00 AM 12/31/2021 Clinical History: Bi Tabor is a 61 year old male with spells concerning for seizures. Epilepsy monitoring was performed for characterization of event and quantifying seizure burden. Semiology:? - Aura?Unsure, just a feeling I'm going to have a seizure ?? - Ictus?#1.) staring off events ?Duration: few seconds ?#2.) ??Convulsions, with tongue injury ?Duration: few minutes ? - Post-ictus?Confusion, aggression, disagreeable, possible paranoia ?Duration: can be several days ? Home ASMs: Name?Pill Size?Frequency?Total/ day?Level? Levetiractam?1000 mg tab ?2 - 2 ?4,000mg/day ?58 (4/5/21) Depakote DR ?500 mg tab?1 - 1 ? Depakote DR ?250 mg tab?1 - 1 ?1,500mg/day ?87.2??(10/07/21) Lacosamide ?200 mg tab?1??- 1 ?400mg/day?11.5 (09/01/21) ?? Current ASMs: 12/28/2021: Levetiracetam 2000 mg AM, Depakote DR 750 mg BID, Vimpat 200 mg BID, Briviact 100 mg BID 12/29/2021: Ativan IV 1 mg x 1 2 mg x 1, Briviact 200 mg AM, Depakote IV 500 TID, Vimpat IV 200 BID, Levetiracetam 3600 mg IV x 1, 1000 mg IV x 1 12/30/2021: Ativan 3 mg IV x 1, Depakote IV 500 mg Q6 hours, Vimpat 200 mg BID, Levetiracetam 2000 mgBID, Versed 2 mg x 5, Ativan 4 mg x 1 Description: This is a continuous video EEG monitoring is 21-channels; consisting of 20 channels of EEG obtainedfrom electrodes placed on the scalp according to the international 10-20 system, T1 and T2 electrodes, and one channel of EKG monitoring. The study was performed as a part of epilepsy monitoring protocol, with the patient continuously under observation, and EEG reviewed by an Epileptologist daily Background: Epoch Start Time: 10:16 AM 12/28/2021 Epoch Stop Time: 05:00 AM 12/29/2021 The background was symmetric. Posterior dominant rhythm was 8 Hz of normal amplitude. Stage 1 sleepwas identified in the form of background attenuation, roving eye movements, and vertex waves. Stage2 sleep was identified in the form of K-complexes and spindles. Slow wave sleep was identified in the form of higher amplitude polymorphic delta activity. Admixed polymorphic theta and delta activity were seen over the right hemisphere. Frequent bursts of rhythmic alpha frequency activity with subsequent evolution were seen maximally over the right posterior quadrant. These were associated with left face and arm clonic movements. These usually lasted less than 1 minute to 1 20 seconds. As the first epoch continued the seizures became longer (closer the 1 minute 20 second henrietta than the less than a minute) and involved more clinical movements. These occurred approximately 8-10 per hour. Activation procedures were not performed. Epoch Start Time: 05:00 AM 12/29/2021 Epoch Stop Time: 05:00 AM 12/30/2021 The background was asymmetric. Posterior dominant rhythm was often absent, when present up to 7 Hz better formed on left of normal amplitude. Normal sleep architecture was not seen. Admixed polymorphic theta and delta activity were seen over the right hemisphere. Similarly frequent bursts of rhythmic activity were seen to the first epoch with variable left-sided clonic involvement. In the early part of this epoch patient received lorazepam IV, and the duration of the seizures became less and clinical manifestations were less pronounced, but the frequency ofthe seizures continued around 8 per hour. As the epoch continued the seizures became more prominent lasting longer and having more prominent clinical manifestations. Activation procedures were not performed. Epoch Start Time: 05:00 AM 12/30/2021 Epoch Stop Time: 05:00 AM 12/31/2021 The background was asymmetric. Posterior dominant rhythm was often absent, when present up to 7 Hz better formed on left of normal amplitude. Normal sleep architecture was not seen. Admixed polymorphic theta and delta activity were seen over the right hemisphere. Similar electro-clinical seizures were seen as in previous epochs. Their intensity and frequency fluctuated significantly during the epoch with 8-10 seizures per hour near the beginning of the epoch to 1-2 per hour around the first dosing of Versed (around 12:00 PM 12/30) back toward 5-6/hour at the end of this epoch. At the end of the epoch, the seizures had no clear clinical correlate. Activation procedures were not performed. EKG was observed throughout the recording. IMPRESSION This is an abnormal epilepsy monitoring recording due to 1) frequent electro- clinical focal seizures 2) right hemispheric slowing CLINICAL CORRELATION: These findings indicate an acute ongoing focal epileptic process arising from the right parietal region broadly. Sean Raymundo DO * Aníbal Hopkins - 12/31/2021 6:01 AM CDT Patient electrodes have been checked, patient name and date is correct, all electrodes are under 10kOhms. * Sean Raymundo DO - 12/30/2021 8:48 AM CDT [facility] EEG REPORT Patient Name: Bi Tabor EEG#: [id number] Recording Start Time: 10:16 AM 12/28/2021 Epoch Start Time: 05:00 AM 12/29/2021 Epoch Stop Time: 05:00 AM 12/30/2021 Clinical History: Bi Tabor is a 61 year old male with spells concerning for seizures. Epilepsy monitoring was performed for characterization of event and quantifying seizure burden. Semiology:? - Aura?Unsure, just a feeling I'm going to have a seizure ?? - Ictus?#1.) staring off events ?Duration: few seconds ?#2.) ??Convulsions, with tongue injury ?Duration: few minutes ? - Post-ictus?Confusion, aggression, disagreeable, possible paranoia ?Duration: can be several days ? Home ASMs: Name?Pill Size?Frequency?Total/ day?Level? Levetiractam?1000 mg tab ?2 - 2 ?4,000mg/day ?58 (09/01/20) Depakote DR ?500 mg tab?1 - 1 ? Depakote DR ?250 mg tab?1 - 1 ?1,500mg/day ?87.2??(10/07/21) Lacosamide ?200 mg tab?1??- 1 ?400mg/day?11.5 (09/01/21) ?? Current ASMs: 12/28/2021: Levetiracetam 2000 mg AM, Depakote DR 750 mg BID, Vimpat 200 mg BID, Briviact 100 mg BID 12/29/2021: Ativan IV 1 mg x 1 2 mg x 1, Briviact 200 mg AM, Depakote IV 500 TID, Vimpat IV 200 BID, Levetiracetam 3600 mg IV x 1, 1000 mg IV x 1 Description: This is a continuous video EEG monitoring is 21-channels; consisting of 20 channels of EEG obtainedfrom electrodes placed on the scalp according to the international 10-20 system, T1 and T2 electrodes, and one channel of EKG monitoring. The study was performed as a part of epilepsy monitoring protocol, with the patient continuously under observation, and EEG reviewed by an Epileptologist daily Background: Epoch Start Time: 10:16 AM 12/28/2021 Epoch Stop Time: 05:00 AM 12/29/2021 The background was symmetric. Posterior dominant rhythm was 8 Hz of normal amplitude. Stage 1 sleepwas identified in the form of background attenuation, roving eye movements, and vertex waves. Stage2 sleep was identified in the form of K-complexes and spindles. Slow wave sleep was identified in the form of higher amplitude polymorphic delta activity. Admixed polymorphic theta and delta activity were seen over the right hemisphere. Activation procedures were not performed. Epoch Start Time: 05:00 AM 12/29/2021 Epoch Stop Time: 05:00 AM 12/30/2021 The background was asymmetric. Posterior dominant rhythm was often absent, when present up to 7 Hz better formed on left of normal amplitude. Normal sleep architecture was not seen. Admixed polymorphic theta and delta activity were seen over the right hemisphere. Activation procedures were not performed. Clinical Events: 12/28-12/29 Frequent bursts of rhythmic alpha frequency activity with subsequent evolution were seen maximally over the right posterior quadrant. These were associated with left face and arm clonic movements. These usually lasted less than 1 minute to 1 20 seconds. As the first epoch continued the seizures became longer (closer the 1 minute 20 second henrietta than the less than a minute) and involved more clinical movements. These occurred approximately 8-10 per hour. 12/29-12/30 Similarly frequent bursts of rhythmic activity were seen to the first epoch with variable left-sided clonic involvement. In the early part of this epoch patient received lorazepam IV, and the duration of the seizures became less and clinical manifestations were less pronounced, but the frequency ofthe seizures continued around 8 per hour. As the epoch continued the seizures became more prominent lasting longer and having more prominent clinical manifestations. EKG was observed throughout the recording. IMPRESSION This is an abnormal epilepsy monitoring recording due to 1) frequent electro- clinical focal seizures 2) right hemispheric slowing CLINICAL CORRELATION: These findings indicate an acute ongoing focal epileptic process arising from the right parietal region broadly. Sean Raymundo DO * Loraine Vargas - 12/30/2021 6:24 AM CDT PATIENT WAS A TRANSFER FROM EMU TO THE ICU,I SWITCHED THE BOX,AND MACHINE,STARTED A NEW STUDY,LEANNSAID SHE WOULD GIVE PATIENT A NEW DAY,ALL ELECTRODES IMPEDANCE LESS THAN 10 KOHMS,I USED THE SAME ELECTRODES FROM [facility] * Sean Raymundo DO - 12/29/2021 10:25 AM CDT U EEG REPORT Patient Name: Bi Tabor EEG#: [id number] Recording Start Time: 10:16 AM 12/28/2021 Epoch Start Time: 10:16 AM 12/28/2021 Epoch Stop Time: 05:00 AM 12/29/2021 Clinical History: Bi Tabor is a 61 year old male with spells concerning for seizures. Epilepsy monitoring was performed for characterization of event and quantifying seizure burden. Semiology:? - Aura?Unsure, just a feeling I'm going to have a seizure ?? - Ictus?#1.) staring off events ?Duration: few seconds ?#2.) ??Convulsions, with tongue injury ?Duration: few minutes ? - Post-ictus?Confusion, aggression, disagreeable, possible paranoia ?Duration: can be several days ? Home ASMs: Name?Pill Size?Frequency?Total/ day?Level? Levetiractam?1000 mg tab ?2 - 2 ?4,000mg/day ?58 (09/01/20) Depakote DR ?500 mg tab?1 - 1 ? Depakote DR ?250 mg tab?1 - 1 ?1,500mg/day ?87.2??(10/07/21) Lacosamide ?200 mg tab?1??- 1 ?400mg/day?11.5 (09/01/21) ?? Current ASMs: 12/28/2021: Levetiracetam 2000 mg AM, Depakote DR 750 mg BID, Vimpat 200 mg BID, Briviact 100 mg BID Description: This is a continuous video EEG monitoring is 21-channels; consisting of 20 channels of EEG obtainedfrom electrodes placed on the scalp according to the international 10-20 system, T1 and T2 electrodes, and one channel of EKG monitoring. The study was performed as a part of epilepsy monitoring protocol, with the patient continuously under observation, and EEG reviewed by an Epileptologist daily Background: Epoch Start Time: 10:16 AM 12/28/2021 Epoch Stop Time: 05:00 AM 12/29/2021 The background was symmetric. Posterior dominant rhythm was 8 Hz of normal amplitude. Stage 1 sleepwas identified in the form of background attenuation, roving eye movements, and vertex waves. Stage2 sleep was identified in the form of K-complexes and spindles. Slow wave sleep was identified in the form of higher amplitude polymorphic delta activity. Admixed polymorphic theta and delta activity were seen over the right hemisphere. Activation procedures were not performed. Clinical Events: 12/28-12/29 Frequent bursts of rhythmic alpha frequency activity with subsequent evolution were seen maximally over the right posterior quadrant. These were associated with left face and arm clonic movements. These usually lasted less than 1 minute to 1 20 seconds. As the first epoch continued the seizures became longer (closer the 1 minute 20 second henrietta than the less than a minute) and involved more clinical movements. These occurred approximately 8-10 per hour. EKG was observed throughout the recording. IMPRESSION This is an abnormal epilepsy monitoring recording due to 1) frequent electro- clinical focal seizures 2) right hemispheric slowing CLINICAL CORRELATION: This patient will continue to be monitored for seizures, with appropriate medication tapering as required under epilepsy monitoring protocol. For further details please see EMU Summary Report. Sean Raymundo DO * Sean Raymundo DO - 12/24/2021 1:20 PM CDT [facility] EEG SUMMARY REPORT Patient Name: Bi Tabor EEG#: [id number] Recording Start Time: 13:15 PM 12/21/2021 Epoch Start Time: 05:00 AM 12/24/2021 Epoch Stop Time: 10:42 AM 12/24/2021 Clinical History: Bi Tabor is a 61 year old male with spells concerning for seizures. Epilepsy monitoring was performed for characterization of event and quantifying seizure burden. Semiology:? - Aura? Unsure, just a feeling I'm going to have a seizure - Ictus?#1.) staring off events ?Duration: few seconds ? #2.) ??Convulsions, with tongue injury ?Duration: few minutes ? - Post-ictus?Confusion, aggression, disagreeable, possible paranoia Duration: can be several days ? Home ASMs: Name Pill Size Frequency Total/day Level Levetiractam?1000 mg tab ?2 - 2 ?4,000mg/day ?58 (09/01/20) Depakote DR ? 500 mg tab?1 - 1 ? Depakote DR ?250 mg tab?1 - 1 ?1,500mg/day ?87.2??(10/07/21) Lacosamide ?200 mg tab?1??- 1 ?400mg/day?11.5 (09/01/21) ?? Current ASMs: 12/21/2021: Levetiracetam 2000 mg BID, Depakote DR 750 mg BID, Vimpat 200 mg BID 12/22/2021: Levetiracetam 2000 mg BID, Depakote DR 750 mg BID, Vimpat 200 mg BID, Ativan 2 mg IV x 1 12/23/2021: Levetiracetam 2000 mg BID, Depakote DR 750 mg BID, Vimpat 200 mg BID, Cenobamate 12.5 mgQHS 12/24/2021: Levetiracetam 2000 mg BID, Depakote DR 750 mg BID, Vimpat 200 mg BID, Cenobamate 12.5 mgQHS Description: This is a continuous video EEG monitoring is 21-channels; consisting of 20 channels of EEG obtainedfrom electrodes placed on the scalp according to the international 10-20 system, T1 and T2 electrodes, and one channel of EKG monitoring. The study was performed as a part of epilepsy monitoring protocol, with the patient continuously under observation, and EEG reviewed by an Epileptologist daily Background: Epoch Start Time: 13:15 PM 12/21/2021 Epoch Stop Time: 05:00 AM 12/22/2021 The background was symmetric. Posterior dominant rhythm up to 8-8.5 Hz of normal microvolts amplitude. Stage 1 sleep was identified in the form of background attenuation, roving eye movements, and vertex waves. Stage 2 sleep was identified in the form of K-complexes and spindles. Slow wave sleep was identified in the form of higher amplitude polymorphic delta activity. Admixed polymorphic theta and delta activity was seen over the right hemisphere. Ay times this became more rhythmic (RAG SHREDDER). Spikes and sharp waves were seen maximally in the P4/P8/C4 region. Independent right temporal sharpwaves were also seen less commonly (maximal F8/T2). Rare bifrontal spikes were seen (Fp1/Fp2 maximal). Multiple focal electrographic seizures were seen during this epoch. These started maximally in the O2/P4>O1 electrodes and appeared as rhythmic evolving activity lasting 40 seconds to 2 minutes. Activation procedures were not performed. Epoch Start Time: 05:00 AM 12/22/2021 Epoch Stop Time: 05:00 AM 12/23/2021 The background was symmetric. Posterior dominant rhythm up to 8-8.5 Hz of normal microvolts amplitude. Stage 1 sleep was identified in the form of background attenuation, roving eye movements, and vertex waves. Stage 2 sleep was identified in the form of K-complexes and spindles. Slow wave sleep was identified in the form of higher amplitude polymorphic delta activity. Admixed polymorphic theta and delta activity was seen over the right hemisphere. Ay times this became more rhythmic (RAG SHREDDER). Spikes and sharp waves were seen maximally in the P4/P8/C4 region. Independent right temporal sharpwaves were also seen less commonly (maximal F8/T2). Rare bifrontal spikes were seen (Fp1/Fp2 maximal). Multiple focal electrographic seizures were seen during this epoch. These started maximally in the O2/P4>O1 electrodes and appeared as rhythmic evolving activity lasting 40 seconds to 2 minutes. Activation procedures were not performed. Epoch Start Time: 05:00 AM 12/23/2021 Epoch Stop Time: 05:00 AM 12/24/2021 The background was symmetric. Posterior dominant rhythm up to 8-8.5 Hz of normal microvolts amplitude. Stage 1 sleep was identified in the form of background attenuation, roving eye movements, and vertex waves. Stage 2 sleep was identified in the form of K-complexes and spindles. Slow wave sleep was identified in the form of higher amplitude polymorphic delta activity. Admixed polymorphic theta and delta activity was seen over the right hemisphere. Ay times this became more rhythmic (RAG SHREDDER). Spikes and sharp waves were seen maximally in the P4/P8/C4 region. Independent right temporal sharpwaves were also seen less commonly (maximal F8/T2). Rare bifrontal spikes were seen (Fp1/Fp2 maximal). Multiple focal electrographic seizures were seen during this epoch. These started maximally in the O2/P4>O1 electrodes and appeared as rhythmic evolving activity lasting 40 seconds to 2 minutes. Activation procedures were not performed. Epoch Start Time: 05:00 AM 12/24/2021 Epoch Stop Time: 10:42 AM 12/24/2021 The background was symmetric. Posterior dominant rhythm up to 8-8.5 Hz of normal microvolts amplitude. Stage 1 sleep was identified in the form of background attenuation, roving eye movements, and vertex waves. Stage 2 sleep was identified in the form of K-complexes and spindles. Slow wave sleep was identified in the form of higher amplitude polymorphic delta activity. Admixed polymorphic theta and delta activity was seen over the right hemisphere. Ay times this became more rhythmic (RAG SHREDDER). Spikes and sharp waves were seen maximally in the P4/P8/C4 region. Independent right temporal sharpwaves were also seen less commonly (maximal F8/T2). Rare bifrontal spikes were seen (Fp1/Fp2 maximal). Multiple focal electrographic seizures were seen during this epoch. These started maximally in the O2/P4>O1 electrodes and appeared as rhythmic evolving activity lasting 40 seconds to 2 minutes. Activation procedures were not performed. Clinical Events: Event #1 started around 05:45 AM on 12/22/2021 Clinically, the patient complained of feeling fearful like a seizure was going to happen. He remained responsive, but had intermittent leftward head movement, facial movements and minimal head shaking. Around 05:57 AM he had more semi- clonic shaking of his arms and face and stated he felt nervous. At 06:00 he stated he felt like it had resolved. By 06:05 he began having focal clonic movement of his left face and arm lasting to about 06:07. Electrographically, continuous right posterior quadrant lateralized periodic discharges were seen preceding the onset of the event, with transition to rhythmic delta activity over the right posteriorquadrant. This showed some evolution in frequency and morphology back to occipitally maximal sharp waves. This activity continued on throughout the prolonged course of this event despite his brief resolution of symptoms for a few minutes around 06:00 AM. The activity persisted after the seizure as well pausing around 06:28 AM. EKG was observed throughout the recording. IMPRESSION This is an abnormal epilepsy monitoring recording due to 1) multiple focal electrographic and electro-clinical seizure from the right posterior region, 2) multifocal epileptiform discharges and 3) right hemispheric slowing and 4) mild generalized slowing. CLINICAL CORRELATION: This is an abnormal 3-day EMU stay. Despite no medication tapering the patient had frequent subclinical electrographic seizures with a broad right posterior field onset and two ynpy-oz-soie clinical events without clear resolution of electrographic changes between the events. Multifocal interictal epileptiform discharges were also noted. These findings, taken together indicate a poorly controlledepilepsy with definite localization. Multiple areas of cortical irritability are noted most prominently from the right posterior quadrant. Sean Raymundo DO * Sean Raymundo DO - 12/24/2021 9:25 AM CDT U EEG REPORT Patient Name: Bi Tabor EEG#: [id number] Recording Start Time: 13:15 PM 12/21/2021 Epoch Start Time: 05:00 AM 12/23/2021 Epoch Stop Time: 05:00 AM 12/24/2021 Clinical History: Bi Tabor is a 61 year old male with spells concerning for seizures. Epilepsy monitoring was performed for characterization of event and quantifying seizure burden. Semiology:? - Aura? Unsure, just a feeling I'm going to have a seizure - Ictus?#1.) staring off events ?Duration: few seconds ? #2.) ??Convulsions, with tongue injury ?Duration: few minutes ? - Post-ictus?Confusion, aggression, disagreeable, possible paranoia Duration: can be several days ? Home ASMs: Name Pill Size Frequency Total/day Level Levetiractam?1000 mg tab ?2 - 2 ?4,000mg/day ?58 (4//) Depakote DR ? 500 mg tab?1 - 1 ? Depakote DR ?250 mg tab?1 - 1 ?1,500mg/day ?87.2??(10/07/21) Lacosamide ?200 mg tab?1??- 1 ?400mg/day?11.5 (09/01/21) ?? Current ASMs: 12/21/2021: Levetiracetam 2000 mg BID, Depakote DR 750 mg BID, Vimpat 200 mg BID 12/22/2021: Levetiracetam 2000 mg BID, Depakote DR 750 mg BID, Vimpat 200 mg BID, Ativan 2 mg IV x 1 12/23/2021: Levetiracetam 2000 mg BID, Depakote DR 750 mg BID, Vimpat 200 mg BID, Cenobamate 12.5 mgQHS Description: This is a continuous video EEG monitoring is 21-channels; consisting of 20 channels of EEG obtainedfrom electrodes placed on the scalp according to the international 10-20 system, T1 and T2 electrodes, and one channel of EKG monitoring. The study was performed as a part of epilepsy monitoring protocol, with the patient continuously under observation, and EEG reviewed by an Epileptologist daily Background: Epoch Start Time: 13:15 PM 12/21/2021 Epoch Stop Time: 05:00 AM 12/22/2021 The background was symmetric. Posterior dominant rhythm up to 8-8.5 Hz of normal microvolts amplitude. Stage 1 sleep was identified in the form of background attenuation, roving eye movements, and vertex waves. Stage 2 sleep was identified in the form of K-complexes and spindles. Slow wave sleep was identified in the form of higher amplitude polymorphic delta activity. Admixed polymorphic theta and delta activity was seen over the right hemisphere. Ay times this became more rhythmic (RAG SHREDDER). Spikes and sharp waves were seen maximally in the P4/P8/C4 region. Independent right temporal sharpwaves were also seen less commonly (maximal F8/T2). Rare bifrontal spikes were seen (Fp1/Fp2 maximal). Multiple focal electrographic seizures were seen during this epoch. These started maximally in the O2/P4>O1 electrodes and appeared as rhythmic evolving activity lasting 40 seconds to 2 minutes. Activation procedures were not performed. Epoch Start Time: 05:00 AM 12/22/2021 Epoch Stop Time: 05:00 AM 12/23/2021 The background was symmetric. Posterior dominant rhythm up to 8-8.5 Hz of normal microvolts amplitude. Stage 1 sleep was identified in the form of background attenuation, roving eye movements, and vertex waves. Stage 2 sleep was identified in the form of K-complexes and spindles. Slow wave sleep was identified in the form of higher amplitude polymorphic delta activity. Admixed polymorphic theta and delta activity was seen over the right hemisphere. Ay times this became more rhythmic (RAG SHREDDER). Spikes and sharp waves were seen maximally in the P4/P8/C4 region. Independent right temporal sharpwaves were also seen less commonly (maximal F8/T2). Rare bifrontal spikes were seen (Fp1/Fp2 maximal). Multiple focal electrographic seizures were seen during this epoch. These started maximally in the O2/P4>O1 electrodes and appeared as rhythmic evolving activity lasting 40 seconds to 2 minutes. Activation procedures were not performed. Epoch Start Time: 05:00 AM 12/23/2021 Epoch Stop Time: 05:00 AM 12/24/2021 The background was symmetric. Posterior dominant rhythm up to 8-8.5 Hz of normal microvolts amplitude. Stage 1 sleep was identified in the form of background attenuation, roving eye movements, and vertex waves. Stage 2 sleep was identified in the form of K-complexes and spindles. Slow wave sleep was identified in the form of higher amplitude polymorphic delta activity. Admixed polymorphic theta and delta activity was seen over the right hemisphere. Ay times this became more rhythmic (RAG SHREDDER). Spikes and sharp waves were seen maximally in the P4/P8/C4 region. Independent right temporal sharpwaves were also seen less commonly (maximal F8/T2). Rare bifrontal spikes were seen (Fp1/Fp2 maximal). Multiple focal electrographic seizures were seen during this epoch. These started maximally in the O2/P4>O1 electrodes and appeared as rhythmic evolving activity lasting 40 seconds to 2 minutes. Activation procedures were not performed. Clinical Events: Event #1 started around 05:45 AM on 12/22/2021 Clinically, the patient complained of feeling fearful like a seizure was going to happen. He remained responsive, but had intermittent leftward head movement, facial movements and minimal head shaking. Around 05:57 AM he had more semi- clonic shaking of his arms and face and stated he felt nervous. At 06:00 he stated he felt like it had resolved. By 06:05 he began having focal clonic movement of his left face and arm lasting to about 06:07. Electrographically, continuous right posterior quadrant lateralized periodic discharges were seen preceding the onset of the event, with transition to rhythmic delta activity over the right posteriorquadrant. This showed some evolution in frequency and morphology back to occipitally maximal sharp waves. This activity continued on throughout the prolonged course of this event despite his brief resolution of symptoms for a few minutes around 06:00 AM. The activity persisted after the seizure as well pausing around 06:28 AM. EKG was observed throughout the recording. IMPRESSION This is an abnormal epilepsy monitoring recording due to 1) multiple focal electrographic and electro-clinical seizure from the right posterior region, 2) multifocal epileptiform discharges and 3) right hemispheric slowing and 4) mild generalized slowing. CLINICAL CORRELATION: This patient will continue to be monitored for seizures, with appropriate medication tapering as required under epilepsy monitoring protocol. For further details please see EMU Summary Report. Sean Raymundo DO * Sean Raymundo DO - 12/23/2021 9:35 AM CDT U EEG REPORT Patient Name: Bi Tabor EEG#: [id number] Recording Start Time: 13:15 PM 12/21/2021 Epoch Start Time: 05:00 AM 12/22/2021 Epoch Stop Time: 05:00 AM 12/23/2021 Clinical History: Bi Tabor is a 61 year old male with spells concerning for seizures. Epilepsy monitoring was performed for characterization of event and quantifying seizure burden. Semiology:? - Aura? Unsure, just a feeling I'm going to have a seizure - Ictus?#1.) staring off events ?Duration: few seconds ? #2.) ??Convulsions, with tongue injury ?Duration: few minutes ? - Post-ictus?Confusion, aggression, disagreeable, possible paranoia Duration: can be several days ? Home ASMs: Name Pill Size Frequency Total/day Level Levetiractam?1000 mg tab ?2 - 2 ?4,000mg/day ?58 (09/01/20) Depakote DR ? 500 mg tab?1 - 1 ? Depakote DR ?250 mg tab?1 - 1 ?1,500mg/day ?87.2??(10/07/21) Lacosamide ?200 mg tab?1??- 1 ?400mg/day?11.5 (09/01/21) ?? Current ASMs: 12/21/2021: Levetiracetam 2000 mg BID, Depakote DR 750 mg BID, Vimpat 200 mg BID Description: This is a continuous video EEG monitoring is 21-channels; consisting of 20 channels of EEG obtainedfrom electrodes placed on the scalp according to the international 10-20 system, T1 and T2 electrodes, and one channel of EKG monitoring. The study was performed as a part of epilepsy monitoring protocol, with the patient continuously under observation, and EEG reviewed by an Epileptologist daily Background: Epoch Start Time: 13:15 PM 12/21/2021 Epoch Stop Time: 05:00 AM 12/22/2021 The background was symmetric. Posterior dominant rhythm up to 8-8.5 Hz of normal microvolts amplitude. Stage 1 sleep was identified in the form of background attenuation, roving eye movements, and vertex waves. Stage 2 sleep was identified in the form of K-complexes and spindles. Slow wave sleep was identified in the form of higher amplitude polymorphic delta activity. Admixed polymorphic theta and delta activity was seen over the right hemisphere. Ay times this became more rhythmic (RAG SHREDDER). Spikes and sharp waves were seen maximally in the P4/P8/C4 region. Independent right temporal sharpwaves were also seen less commonly (maximal F8/T2). Rare bifrontal spikes were seen (Fp1/Fp2 maximal). Multiple focal electrographic seizures were seen during this epoch. These started maximally in the O2/P4>O1 electrodes and appeared as rhythmic evolving activity lasting 40 seconds to 2 minutes. Activation procedures were not performed. Epoch Start Time: 05:00 AM 12/22/2021 Epoch Stop Time: 05:00 AM 12/23/2021 The background was symmetric. Posterior dominant rhythm up to 8-8.5 Hz of normal microvolts amplitude. Stage 1 sleep was identified in the form of background attenuation, roving eye movements, and vertex waves. Stage 2 sleep was identified in the form of K-complexes and spindles. Slow wave sleep was identified in the form of higher amplitude polymorphic delta activity. Admixed polymorphic theta and delta activity was seen over the right hemisphere. Ay times this became more rhythmic (RAG SHREDDER). Spikes and sharp waves were seen maximally in the P4/P8/C4 region. Independent right temporal sharpwaves were also seen less commonly (maximal F8/T2). Rare bifrontal spikes were seen (Fp1/Fp2 maximal). Multiple focal electrographic seizures were seen during this epoch. These started maximally in the O2/P4>O1 electrodes and appeared as rhythmic evolving activity lasting 40 seconds to 2 minutes. Activation procedures were not performed. Clinical Events: Event #1 started around 05:45 AM on 12/22/2021 Clinically, the patient complained of feeling fearful like a seizure was going to happen. He remained responsive, but had intermittent leftward head movement, facial movements and minimal head shaking. Around 05:57 AM he had more semi- clonic shaking of his arms and face and stated he felt nervous. At 06:00 he stated he felt like it had resolved. By 06:05 he began having focal clonic movement of his left face and arm lasting to about 06:07. Electrographically, continuous right posterior quadrant lateralized periodic discharges were seen preceding the onset of the event, with transition to rhythmic delta activity over the right posteriorquadrant. This showed some evolution in frequency and morphology back to occipitally maximal sharp waves. This activity continued on throughout the prolonged course of this event despite his brief resolution of symptoms for a few minutes around 06:00 AM. The activity persisted after the seizure as well pausing around 06:28 AM. EKG was observed throughout the recording. IMPRESSION This is an abnormal epilepsy monitoring recording due to 1) multiple focal electrographic and electro-clinical seizure from the right posterior region, 2) multifocal epileptiform discharges and 3) right hemispheric slowing and 4) mild generalized slowing. CLINICAL CORRELATION: This patient will continue to be monitored for seizures, with appropriate medication tapering as required under epilepsy monitoring protocol. For further details please see [facility] Summary Report. Sean Raymundo DO * Sean Raymundo DO - 12/22/2021 12:09 PM CDT U EEG REPORT Patient Name: Bi Tabor EEG#: [id number] Recording Start Time: 13:15 PM 12/21/2021 Epoch Start Time: 13:15 PM 12/21/2021 Epoch Stop Time: 05:00 AM 12/22/2021 Clinical History: Bi Tabor is a 61 year old male with spells concerning for seizures. Epilepsy monitoring was performed for characterization of event and quantifying seizure burden. Semiology:? - Aura? Unsure, just a feeling I'm going to have a seizure - Ictus?#1.) staring off events ?Duration: few seconds ? #2.) ??Convulsions, with tongue injury ?Duration: few minutes ? - Post-ictus?Confusion, aggression, disagreeable, possible paranoia Duration: can be several days ? Home ASMs: Name Pill Size Frequency Total/day Level Levetiractam?1000 mg tab ?2 - 2 ?4,000mg/day ?58 (09/01/20) Depakote DR ? 500 mg tab?1 - 1 ? Depakote DR ?250 mg tab?1 - 1 ?1,500mg/day ?87.2??(10/07/21) Lacosamide ?200 mg tab?1??- 1 ?400mg/day?11.5 (09/01/21) ?? Current ASMs: 12/21/2021: Levetiracetam 2000 mg BID, Depakote DR 750 mg BID, Vimpat 200 mg BID Description: This is a continuous video EEG monitoring is 21-channels; consisting of 20 channels of EEG obtainedfrom electrodes placed on the scalp according to the international 10-20 system, T1 and T2 electrodes, and one channel of EKG monitoring. The study was performed as a part of epilepsy monitoring protocol, with the patient continuously under observation, and EEG reviewed by an Epileptologist daily Background: Epoch Start Time: 13:15 PM 12/21/2021 Epoch Stop Time: 05:00 AM 12/22/2021 The background was symmetric. Posterior dominant rhythm up to 8-8.5 Hz of normal microvolts amplitude. Stage 1 sleep was identified in the form of background attenuation, roving eye movements, and vertex waves. Stage 2 sleep was identified in the form of K-complexes and spindles. Slow wave sleep was identified in the form of higher amplitude polymorphic delta activity. Admixed polymorphic theta and delta activity was seen over the right hemisphere. Ay times this became more rhythmic (RAG SHREDDER). Spikes and sharp waves were seen maximally in the P4/P8/C4 region. Independent right temporal sharpwaves were also seen less commonly (maximal F8/T2). Rare bifrontal spikes were seen (Fp1/Fp2 maximal). Multiple focal electrographic seizures were seen during this epoch. These started maximally in the O2/P4>O1 electrodes and appeared as rhythmic evolving activity lasting 40 seconds to 2 minutes. Activation procedures were not performed. Clinical Events: EKG was observed throughout the recording. IMPRESSION This is an abnormal epilepsy monitoring recording due to 1) multiple focal electrographic seizure from the right posterior region, 2) multifocal epileptiform discharges and 3) mild generalized slowing. CLINICAL CORRELATION: This patient will continue to be monitored for seizures, with appropriate medication tapering as required under epilepsy monitoring protocol. For further details please see [facility] Summary Report. Sean Raymundo DO documented in this encounter Consult Notes * Nuria Guajardo, MINH/ONI - 12/30/2021 12:53 PM CDTAssociated Order(s): IP CONSULT TO NUTRITIONAL SERV Nutrition Re-Assessment Brief Synopsis: Patient is dx with malnutrition; Specific criteria can be found in assessment below Nutrition Plan: Vital AF 1.2 Margarita at goal of 65 ml/hr. Provides 1872 kcal, 117 g protein, 173 g carbohydrate and 1265 ml free water +100 ml q4 hrs free water flush or per MD if not on additional fluids Recommendations to Physician: none Comments: RD consulted for TF recs. Pt on room air. Not oriented. In ICU for seizure monitoring. Noenteral access currently. Assessment: Med/Surg History and Clinical Diagnoses: seizure; PMH including alcohol abuse (resolved 2016), CVA,HTN, HLD, prior head injury, cervical osteoarthritis, anxiety, Alzheimer's (early onset) and refractory epilepsy. Diet order accuracy Current diet order: Regular Current supplement order: d/c Nutritional Supplement at Discharge: Yes Current tube feeding order: order: vital AF 20 ml/hr Nutrition recommendation: agree with current nutrition order P.O.Intake for the past 48 hrs:% Meal Taken Av.5 % Min: 0 % Max: 10 % Supplement(s) Consumed- Last 48 hours Date/Time Dietary Supplement Name Liquid Supplement Consumed (mL) Non-Liquid Supplement Consumed (%) 12/29/21 1000 -- 0 ML -- 12/29/21 1400 -- 0 ML -- Food Allergies: No known food allergies GI Concerns: None Chewing/Swallowing: (NPO) Pain affecting intake: No Admission weight: Weight: 130 lb (59 kg) (12/21/21 1236) Recent Weights/Methods 09/17/2020 1016 02/25/2021 1059 05/01/2021 2236 08/28/2021 1101 09/01/2021 1359 12/09/2021 1023 12/21/2021 1236 Weight: 135 lb (61.2 kg) 168 lb (76.2 kg) 168 lb (76.2 kg) -- -- 131 lb (59.4 kg) 130 lb (59 kg) Weight Method (Utilize Scales): -- Stated -- -- -- -- Estimated Wt Comments: monitoring wt changes Height: 5' 11 (180.3 cm) IBW/lb (Calculated) Male: 172 , Usual weight/lb: 137lb (Reported by pt) Laboratory values reviewed. Recent Labs Component Name 12/30/21 0119 12/29/21 0721 12/27/21 0117 BUN 25 19 19 CREATININE 0.81 0.86 0.89 NA 141 140 141 POTASSIUM 4.4 4.6* 4.1 CL 107 103 104 CO2 25 24 22 GLUCOSE 158* 139* 84 CALCIUM 9.1 9.7 9.5 PROT 6.0 7.2 6.7 ALB 3.0* 3.4 3.3* TBILI 0.2 0.4 0.5 ALKPHOS 62 73 74 ALT 20 27 26 AST 20 25 32 ANIONGAP 13 18 19* BCR 31* 22 21 OSMOLALITY 300 295 293 AGRATIO 1.0* 0.9* 1.0* EGFR >90 >90 >90 Medications noted. Current Facility-Administered Medications Medication ??? 0.9% NaCl injection 3 mL ??? amLODIPine (Norvasc) tablet 5 mg ??? aspirin chew tablet 81 mg ??? atorvastatin (Lipitor) tablet 40 mg ??? dextrose 5 % and lactated ringers infusion ??? enoxaparin (Lovenox) injection 40 mg ??? iopamidol (Isovue 300) 61 % contrast ??? lacosamide (Vimpat) injection 200 mg ??? levETIRAcetam (Keppra) 2,000 mg in 0.9% NaCl IV 270 mL IVPB ??? LORazepam (Ativan) injection ADS Med ??? midazolam (Versed) injection 2 mg ??? ondansetron (Zofran) injection 4 mg ??? pantoprazole (Protonix) injection 40 mg ??? tamsulosin (Flomax) capsule 0.4 mg ??? valproate (Depacon) 500 mg in 0.9% NaCl IV 55 mL IVPB ??? vitamin D3 (Cholecalciferol) 25 MCG (1000 UNITS) tablet 1,000 Units Skin/Wound: WNL Estimated Energy Needs: KCAL: 1770-2065kcal (30-35kca/kg (ABW)) Protein (g): 89-103g (20% of estimated kcal) Fluid (ml): 1 ml/kcal Needs based on: Kcal/kg- (Comment) (ABW: 130lb (59kg); EMR, estimated) Recommended Access Route: PO Malnutrition Etiology: Malnutrition in the context of: acute disease or injury, Malnutrition Severity: Severe Unintended weight change: Severe weight loss Weight Loss: > 10% x 6 months (Per wt hx reported in EMR; unsure of accuracy) BMI: Body mass index is 18.13 kg/m??. GI Concerns: None Nutrition Focused Physical Assessment: Loss of Subcutaneous Fat Orbital: Mild Buccal: Mild Tricep: Moderate Muscle Loss Temples (Temporalis Muscle): Mild Clavicles (Pectoralis & Deltoids): Mild Shoulders (Deltoids): Mild Interosseous Muscle: Moderate Thigh (Quadriceps): Moderate Calf (Gastrocnemius): Moderate Education needed: Supplements Education Provided: Prior to Discharge Nutrition Care Process (1) Nutrition Diagnostic Statement: Malnutrition severity: : Moderate related to:: inadequate protein-energy intake as evidenced by:: BMI less than 19;loss of subcutaneous fat;loss of muscle mass Nutrition Diagnostic Statement Progress: Nutrition problem continues Nutrition Intervention: Enteral nutrition: Monitoring: TF, BM, labs, meds, weight Evaluation: Nutrition Goal: Total intake will meet estimated nutrient needs Nutrition Goal Timeframe: Throughout stay Nutrition Goal Progress: Continue with current goal Ascom #: [id number] * Caio Oliveira - 12/29/2021 11:33 AM CDTAssociated Order(s): IP CONSULT TO MATERIALS RECYCLER Images from the original note were not included. New Facility Admission Referral Referral source: PT/OT Recommendations Date of referral: 12/29/2021 Admitted from: EMU Special Needs: [place] Patient Goal (short term and senior care): Return Level of Care : Acute Rehab, [facility] Acute Care (LTAC) or Shelter Facility (SNF) SW Spoke with (Phone number, if not patient. Family participation encouraged): patient's sister Ofe Hilliard Sister [phone] ?? [phone] ?? Family Contacted: Yes List of facilities provided (within patient geographic preference): Yes Referrals initiated: Continued Care and Services - Admitted Since 12/21/2021 Destination Service Provider Request Status Selected Services Address Phone Fax Patient Preferred [facility]ending - [facility] [address] [facility] [phone] -- Current Capacity last updated by Yu Nguyễn on 12/11/2021 0904 [address] [facility] Pending - Request Sent N/A [address] [facility] [id number] -- [facility] Pending - Request Sent N/A [address] [facility] [address] [phone] -- [facility] Pending - Request Sent N/A [address] [address] [phone] -- [facility] Pending - Request Sent N/A [address] [place] [address] [phone] -- [facility] Pending - Request Sent N/A [address] [facility] [address] [phone] [facility] Pending - Request Sent N/A [address], [facility] [address] Internal Comment last updated by Caio Oliveira 12/29/2021 1242 12/29/2021 Radha acknowledged receipt of referral; She is following and will review when Pt is medially stable w/ seizures. [facility] Pending - Request Sent N/A [address] [facility] [address] [phone] [facility] Pending - Request Sent N/A [address] [facility] [phone] -- [facility] Pending - Request Sent N/A [id number] [facility] [phone] -- Internal Comment last updated by Caio Oliveira 12/29/2021 1622 12/29/2021 Laurita has rec'd referral and will review. If Medicare, 3 day qualifying stay verified: No Comments: Family prefers acute rehab over senior care. SW will monitor facility response and update clinical team/family as appropriate. CLARITA Rico, PRACHI Public Relations Specialist [phone] 12/29/2021 11:43 AM * Lucien Butler MD - 12/29/2021 8:23 AM CDTAssociated Order(s): IP CONSULT TO INTERVENTIONAL VASCULAR [facility] Stroke Consult Bi Tabor Age: [age] year old Date of : 1960 Date of Admission: 12/21/2021 Hospital Day: 8 Subjective Patient is a 61 year old male presents with left sided weakness. Date last known well: 12/28/2021 Time last known well: unknown2 Blood Glucose: 132 Blood Pressure: 137/88 Timeline Code Stroke Paged 3099 Arrival at [facility] ED N/A NIHSS Completed 0744 [facility] 0754 tPA orders placed N/A tPA begun N/A History of Present Illness Bi Tabor??is a 61 year old??male??with PMH including alcohol abuse (resolved 2015), CVA (02/2015), HTN, HLD, prior head injury (from a fall?), cervical osteoarthritis, anxiety, Alzheimer's (earlyonset) and refractory epilepsy (reported onset, two weeks after his head injury), who is admitted to [facility] for continuous video EEG monitoring for medication adjustment and to quantify seizure burden.??Stroke code was called when nurse noticed his weakness on the left side. NIHSS was 19, CT head did not show any acute intracranial hemorrhage. The CTA was negative for any new LVO or new severe stenosis (no interval changes as per prelim read of radiology). His exam was fluctuating during the stroke code. He also had 2 episode of generalized tonic seizures. Medical history significant for alcohol abuse (resolved 2015), CVA (02/2015), HTN, HLD, prior head injury (from a fall?), cervical osteoarthritis, anxiety, Alzheimer's (early onset) and refractory epilepsy (reported onset, two weeks after his head injury) Past Medical History: Diagnosis Date ??? CVA (cerebral vascular accident) ??? HTN (hypertension) ??? Seizure No past surgical history on file. Medications Prior to Admission Medication Sig Dispense Refill ??? acetaminophen (TYLENOL) 325 MG tablet ??? amLODIPine (NORVASC) 5 MG tablet Take 1 tablet by mouth once daily 30 tablet 0 ??? aspirin (ASPIRIN) 81 MG chew tablet Take 1 tablet by mouth once daily 30 tablet 0 ??? atorvastatin (LIPITOR) 40 MG tablet Take 1 (one) tablet by mouth at bedtime ??? Cholecalciferol 25 MCG (1000 UT) Take 1,000 Units by mouth once daily ??? divalproex DR (DEPAKOTE) 250 MG tablet Take 1 (one) tablet by mouth 2 times daily [Take with 250 mg tablets, making 750 mg twice a day] 180 tablet 3 ??? divalproex DR (DEPAKOTE) 500 MG tablet Take 1 (one) tablet by mouth 2 times daily [Take with 250 mg tablets, making 750 mg twice a day] 180 tablet 3 ??? ibuprofen (MOTRIN) 600 MG tablet Take 600 mg by mouth as needed ??? lacosamide (VIMPAT) 200 MG tablet Take 1 (one) tablet by mouth 2 times daily 180 tablet 3 ??? levETIRAcetam (KEPPRA) 1000 MG tablet Take 2 (two) tablets by mouth 2 times daily 360 tablet 3 ??? tamsulosin (FLOMAX) 0.4 MG capsule 0.4 mg once daily Allergy Allergies Allergen Reactions ??? Clonazepam Psychiatric hallucinations Family History No family history on file. Social History Social History Socioeconomic History ??? Marital status: Single Tobacco Use ??? Smoking status: Former Smoker Packs/day: 1.00 Years: 15.00 Pack years: 15.00 ??? Smokeless tobacco: Never Used Vaping Use ??? Vaping Use: Never used Substance and Sexual Activity ??? Alcohol use: No Comment: last drink 2015 ??? Drug use: No Comment: occasional ??? Sexual activity: Not Currently Review of Systems Unable to obtain Objective Patient Vitals for the past 8 hrs: BP Temp Temp src Pulse Resp SpO2 12/29/21 0734 137/88 98.2 ??F (36.8 ??C) Axillary (!) 151 20 96 % 12/29/21 0301 131/87 -- -- 98 -- 97 % 12/29/21 0105 120/70 97.6 ??F (36.4 ??C) Axillary 83 18 97 % Exam: Patient was examined s/p ativan as he was having seizures during code stroke Cortical Function Mental Status Drowsy, awake on repeated tactile stimulation Orientation Unable to asses Language Patient is not answering questions Visual Iavn Intact bilaterally to confrontation Neglect No visual neglect noted, no tactile neglect noted Cranial Nerves II Pupils and bilaterally reactive to light. Fundoscopic exam not performed. VIII Unable to assess III/IV/ Extraocular muscles intact. No diplopia, ptosis, nystagmus or convergence abnormalities noted. IX/X Palate elevated symmetrically V Unable to assess XI Unable to assess VII No facial palsy noted. XII Tongue is midline with normal movements and no atrophy noted. Motor Function Movement No abnormalities noted Bulk No abnormalities noted Tone No abnormalities noted Proximal Upper Distal Upper Proximal Lower Distal Lower Right 2/5 2/5 2/5 2/5 Left 2/5 3/5 2/5 2/5 Muscle Stretch Reflexes BI TRI BR PAT ACH TOES Right 2 2 2 2 2 Down Left 2 2 2 2 2 Down Sensory Light Touch unable to obtain Noxious Stimuli Symmetric and intact bilaterally Temperature Not tested Pallesthesia Not tested Cerebellar Unable to assess Gait Deferred Ischemic Stroke Documentation Comorbidities lcohol abuse (resolved 2015), CVA (02/2015), HTN, HLD, prior head injury (from a fall?), cervical osteoarthritis, anxiety, Alzheimer's (early onset) and refractory epilepsy (reported onset, two weeksafter his head injury) Cardiovascular/Cerebrovascular Comorbidities CVA (02/2015), HTN, HLD, Alzheimer's (early onset) and refractory epilepsy (reported onset, two weeks after his head injury) NIHSS Stroke Scale: Interval: Baseline Time: 0744 Person Administering Scale: Lucien Butler MD 1a Level of consciousness 2 = Not alert; requires repeated stimulation to attend, or is obtunded and requires strong or painful stimulation to make movements (not stereotyped). 1b LOC questions 2 = Answers neither question correctly. 1c LOC commands 1 = Performs one task correctly. 2 Best gaze 0 = Normal. 3 Visual 0 = No visual loss. 4 Facial Palsy 0 = Symmetrical movements. 5a Motor Left Arm 3 = No effort against gravity; limb falls. 5b Motor Right Arm 2 = Some effort against gravity; limb cannot get to or maintain (if cued) 90 (or45) degrees, drifts down to bed, but has some effort against gravity. 6a Motor Left Leg 2 = Some effort against gravity; leg falls to bed by 5 seconds but has some effort against gravity. 6b Motor Right Leg 2 = Some effort against gravity; leg falls to bed by 5 seconds but has some effort against gravity. 7 Limb Ataxia UN = unable to assess 8 Sensory 2 = Severe or total sensory loss; patient is not aware of being touched in the face, arm,and leg. 9 Best Language 3 = Mute, global aphasia; no usable speech or auditory comprehension. 10 Dysarthria UN = Intubated or other physical barrier. 11 Extinction/Inattention 0 = No abnormality. Total - 19 tPA - INCLUSION criteria for treatment 0-3 hours from last known well: 1. Age greater than or equal to 18 years old? yes 2. Clinical presentation consistent with acute ischemic stroke? no 3. Head CT excludes ICH as primary cause of stroke symptoms? yes tPA - EXCLUSION criteria for treatment 0-3 hours from last known well: 1. Current intracranial hemorrhage or subarachnoid hemorrhage? no 2. Active internal bleeding? no 3. Recent (<3 months) intracranial/intra-spinal surgery or serious head trauma? no 4. Presence of intracranial conditions that may increase the risk of bleeding (some neoplasms, AVMs, or aneurysms)? no 5. Bleeding diathesis? no 6. Current severe uncontrolled hypertension? no tPA - Additional EXCLUSION criteria for treatment 3-4.5 hours from last known well: 1. Age greater than 80 years old? no 2. NIHSS greater than 25? no 3. History of stroke and diabetes mellitus? no 4. Oral anticoagulant use regardless of INR? no tPA was not given due to: LKW >4.5 hours of unknown and less likely stroke pesentation Tenecteplase Administered? No, Tenecteplase exclusion: Last Known Well > 4.5 Hours of Unknown Large Vessel Occlusion Suspected? No - no New LVO Mechanical Thrombectomy - INCLUSION criteria: 1. Age greater than or equal to 18 years old? yes 2. Clinical presentation consistent with acute ischemic stroke? no 3. Head CT excludes ICH as primary cause of stroke symptoms? yes Mechanical Thrombectomy - EXCLUSION criteria: 1. Evidence of proximal large vessel intracranial occlusion? no 2. Completed large infarction on neuroimaging? no 3. Baseline disability with modified Florentino score greater than or equal to 3? no 4. Patient and/or family refusal of treatment? no 5. Mild/non-disabling neurological deficits? no Mechanical Thrombectomy not considered due to: no new LVO Hospital Problems on Admission: Seizure POA: Unknown Assessment Bi Tabor??is a 61 year old??male??with PMH including alcohol abuse (resolved 2015), CVA (02/2015), HTN, HLD, prior head injury (from a fall?), cervical osteoarthritis, anxiety, Alzheimer's (earlyonset) and refractory epilepsy (reported onset, two weeks after his head injury), who is [facility] for continuous video EEG monitoring for medication adjustment and to quantify seizure burden. Stroke code was called for left sided weakness. Patient also have a history of having left sided seizures. NIHSS was 19, CT head did not show any acute intracranial hemorrhage. The CTA was negative for any new LVO or new severe stenosis (no interval changes as per prelim read of radiology). His exam was fluctuating during the stroke code. He also had 2 episode of generalized tonic seizures. Given the fluctuating exam and bilaterality of symptoms, his symptoms are less likely due to stroke. Plan - No further stroke work up recommended art this time - Please feel free to call stroke neurology in case of any questions or concerns or any acute changes in neurological exam Patient discussed and seen with attending physician Dr Juarez This note will not be considered final without the attestation of attending physician Lucien Butler MD PGY-2, Neurology Neurology Resident Associated attestation - Ricci Juarez MD - 12/30/2021 12:30 PM CDT The above note was reviewed. The patient was seen and examined. I would add the following: I saw and examined the patient with the resident and/or medical student and/or nurse practitioner. I have verified all details of the note and agree with his/her documentation with additions and modifications as listed in my separate note. Please refer to the resident's, medical student's, or nursepractitioner's note for plans of active problems not discussed in this note. 61 year old male with hx of alcohol abuse, stroke (02/2015), HTN, HLD, anxiety, Alzheimer's (early onset) and refractory epilepsy who was admitted for continuous video EEG monitoring Stroke code was called for left sided weakness. Patient also have a history of having left sided seizures. NIHSS was19, CT/CTA insignificant. He had 2 episode of generalized tonic seizures and had fluctuating exam suggestive of ictal and post ictal states. Vascular neurology signed off. Patient Vitals for the past 6 hrs: Pulse Resp BP BP Method 12/30/21 0700 75 (!) 8 120/73 Automatic Recent Labs Component Name 04/11/15 0622 CHOL 196 TRIG 63 HDL 81 LDLCALC 102* Recent Labs Component Name 05/12/19 0542 04/11/15 0622 HGBA1C 5.5 5.3 Recent Labs Component Name 12/30/21 0119 12/29/21 0721 12/27/21 0117 CREATININE 0.81 0.86 0.89 Recent Labs Component Name 12/30/21 0119 12/29/21 0721 12/27/21 0117 WBC 13.1* 8.1 6.7 Problem List Epilepsy, unspecified, not intractable, without status epilepticus POA: Yes Difficulty in walking, not elsewhere classified POA: Yes Alzheimer's disease with early onset POA: Yes Hemiplegia and 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- dominant side POA: Yes History of CVA (cerebrovascular accident) POA: Yes Seizure POA: Yes Status epilepticus POA: Yes Acute encephalopathy POA: Yes Ricci Juarez MD Vascular and Interventional Neurology documented in this encounter Miscellaneous Notes * Code/Rapid Response Event - Melany Vega, RN - 12/30/2021 4:30 AM CDT RAPID RESPONSE EVENT NOTE [facility] [address] [facility], [place] [address] Patient: Bi Tabor Location: 305/01 : 1960 Reason for Admission: Seizures Provider Teams Team Primary Team Specialty Team Pager [facility] Neurology Team Yes Neurology [phone] [facility] MICU 1 No Intensive Care [phone] Event Date/Time: 12/30/2021 0320 Summary of Events: The Rapid Response Team (CAR RENTAL SALES ASSISTANT) was paged for increasing frequency of focal seizures. Per charge aide, patient's baseline was A&Ox4, able to hold a conversation, and consistently able to follow commands. Over the past 24 hours, patient's seizure activity has become more frequent and longer in duration. He has since been unable to follow any commands or speak at all. 3mg IV ativan was administered and seizure activity stopped for ~ 3 minutes, then resumed. Care team advocated for patient to be moved to higher level of care for closer monitoring and more nursing care. Patientwas transported to neuro ICU on transport monitor by CAR RENTAL SALES ASSISTANT RNs. Handoff was given to 3N RNs without complication. No further rapid response needs required at this time. Vital Signs: Patient Vitals for the past 24 hrs: Temp Pulse Resp BP SpO2 12/30/21 0415 98 ??F (36.7 ??C) 70 22 -- 97 % 12/30/21 0346 -- 66 18 127/81 99 % 12/30/21 0325 -- 72 -- 143/78 100 % 12/30/21 0314 -- 68 18 147/88 100 % 12/30/21 0159 -- 64 16 121/81 -- 12/30/21 0129 -- 83 18 142/78 100 % 12/29/21 2354 97 ??F (36.1 ??C) 95 16 146/85 -- 12/29/21 2302 -- 82 18 134/81 99 % 12/29/21 2039 -- 90 -- 138/86 97 % 12/29/21 1957 -- 88 16 124/83 -- 12/29/21 1916 -- 96 18 134/90 97 % 12/29/21 0734 98.2 ??F (36.8 ??C) (!) 151 20 137/88 96 % Outcome: Pt transferred to 3N ICU for closer monitoring. Melany Vega RN Rapid Response Nurse [phone] * Code/Rapid Response Event - Vashti Nelson RN - 12/29/2021 8:19 AM CDT CODE STROKE EVENT NOTE [address] [address] Patient: Bi Tabor Location: [facility]/ : 1960 Reason for Admission: Seizures Provider Teams Team Primary Team Specialty Team Pager [facility] Neurology Team Yes Neurology [phone] STROKE TEAM No Neurology [phone] Event Date/Time: 12/29/2021 Summary of Events: The Rapid Response Team ([employer]IST[employer]) was paged for a code stroke. Per primary RN report, pt is an EMU patient admitted for seizure monitoring. Pt seizures had become progressively worse over the past 24 hours. At time of her initial assessment, pt had developed a new left sided facial droop and was flaccid on LUE and LLE. When RR team arrived, pt appeared post ictal and had [address] and an additional seizure while in CT. CT head and CTA done without complication. Pt taken back to original room by both RR RNs. No tPa per stroke team. EMU tech at bedside to reattach leads. NIH Stroke Scale Interval: baseline Time: 0742 Person Administering Scale: stoke team resident Administer stroke scale items in the order listed. Record performance in each category after each subscale exam. Do not go back and change scores. Follow directions provided for each exam technique. Scores should reflect what the patient does, not what the clinician thinks the patient can do. The clinician should record answers while administering the exam and work quickly. Except where indicated, the patient should not be coached (i.e., repeated requests to patient to make a special effort). 1a Level of consciousness: 2 1b. LOC questions: 2 1c. LOC commands: 1 2. Best Gaze: 0 3. Visual0 4. Facial Palsy: 0 5a. Motor left arm: 3 5b. Motor right arm: 2 6a. motor left le 6b Motor right le 7. Limb Ataxia: un 8. Sensory: 2 9. Best Language: 3 10. Dysarthria: un 11. Extinction and Inattention: 0 12. Distal motor function:0 Total: 19 Blood sugar: 132 Vital Signs: Patient Vitals for the past 24 hrs: Temp Pulse Resp BP SpO2 12/29/21 0734 98.2 ??F (36.8 ??C) (!) 151 20 137/88 96 % 12/29/21 0301 -- 98 -- 131/87 97 % 12/29/21 0105 97.6 ??F (36.4 ??C) 83 18 120/70 97 % 12/28/21 2035 97.9 ??F (36.6 ??C) 81 18 134/76 100 % 12/28/21 1516 97.8 ??F (36.6 ??C) 105 -- 126/85 96 % 12/28/21 1034 97.8 ??F (36.6 ??C) 70 18 136/79 97 % Outcome: Pt safe to remain in his current room at this time. Vashti Nelson RN Rapid Response Nurse * Coding Query - Yana Rm APRN-[facility] - 12/28/2021 9:46 AM CDT DOCUMENTATION CLARIFICATION REQUEST TO: Dr. Raymundo FROM: Dinone GAO RN CCDS Email: [email or web address] Please clarify and document if the patient is being evaluated/monitored/treated for - Severe protein-calorie malnutrition, POA - Other explanation of clinical findings (please specify) - Unable to determine (no explanation for clinical findings) The medical record reflects the following clinical evidence: Clinical Indicators: 12/23 Nutrition consult: Malnutrition Etiology : Malnutrition in the context of: acute disease or injury, Malnutrition Severity : Severe BMI: Body mass index is 18.13 kg/m??. Nutrition Focused Physical Assessment : Loss of Subcutaneous Fat Orbital : Mild Buccal : Mild Tricep : Moderate Muscle Loss Temples ( Temporalis Muscle ) : Mild Clavicles ( Pectoralis & Deltoids ) : Mild Shoulders ( Deltoids ) : Mild Interosseous Muscle : Moderate Thigh ( Quadriceps ) : Moderate Calf ( Gastrocnemius ) : Moderate Risk Factor(s): Epilepsy Treatment: Nutrition consult, Ensure supplements recommended Please document your clinical opinion in the progress notes and discharge summary including the definitive and/or presumptive diagnosis, (suspected or probable), related to the above clinical findings. Please include clinical findings supporting your diagnosis. Select Edit, then F2 to respond, Severe protein-calorie malnutrition, POA. Continue regular diet with Ensure 1.5 margarita/ml supplement TID with meals. documented in this encounter Plan of Treatment Upcoming Encounters Date Type Department Care Team (Late st Contact Info) Description 12/05/2024 1:00 PM CDT Office Visit [facility] - Neurology [address] [place] [address], [facility] [place] [phone] Sean Raymundo, [address] [place] [phone] documented as of this encounter Procedures Procedure Name Priority Date/Time Associated Diagnosis Comments GLUCOSE - POINT OF CARE Routine 01/07/2022 4:29 PM CDT GLUCOSE - POINT OF CARE Routine 01/07/2022 11:26 AM CDT CBC W AUTO DIFFERENTIAL AM Draw 01/07/2022 7:33 AM CDT BASIC METABOLIC PANEL (CALCIUM TOTAL) AM Draw 01/07/2022 7:33 AM CDT PHOSPHORUS BLOOD Routine 01/07/2022 7:33 AM CDT MAGNESIUM BLOOD Routine 01/07/2022 7:33 AM CDT GLUCOSE - POINT OF CARE Routine 01/07/2022 7:28 AM CDT GLUCOSE - POINT OF CARE Routine 01/07/2022 12:41 AM CDT GLUCOSE - POINT OF CARE Routine 01/06/2022 7:42 PM CDT GLUCOSE - POINT OF CARE Routine 01/06/2022 5:25 PM CDT GLUCOSE - POINT OF CARE Routine 01/06/2022 3:06 PM CDT GLUCOSE - POINT OF CARE Routine 01/06/2022 11:36 AM CDT GLUCOSE - POINT OF CARE Routine 01/06/2022 7:55 AM CDT GLUCOSE - POINT OF CARE Routine 01/06/2022 3:54 AM CDT GLUCOSE - POINT OF CARE Routine 01/06/2022 2:04 AM CDT CBC W AUTO DIFFERENTIAL AM Draw 01/06/2022 1:21 AM CDT BASIC METABOLIC PANEL (CALCIUM TOTAL) AM Draw 01/06/2022 1:21 AM CDT PHOSPHORUS BLOOD Routine 01/06/2022 1:21 AM CDT MAGNESIUM BLOOD Routine 01/06/2022 1:21 AM CDT GLUCOSE - POINT OF CARE Routine 01/06/2022 12:21 AM CDT GLUCOSE - POINT OF CARE Routine 01/05/2022 9:51 PM CDT GLUCOSE - POINT OF CARE Routine 01/05/2022 5:34 PM CDT GLUCOSE - POINT OF CARE Routine 01/05/2022 12:25 PM CDT GLUCOSE - POINT OF CARE Routine 01/05/2022 8:17 AM CDT GLUCOSE - POINT OF CARE Routine 01/05/2022 4:27 AM CDT CLOBAZAM QUANT BLOOD AM Draw 01/05/2022 1:10 AM CDT LACOSAMIDE AM Draw 01/05/2022 1:10 AM CDT LEVETIRACETAM LEVEL AM Draw 01/05/2022 1 :10 AM CDT CBC W AUTO DIFFERENTIAL AM Draw 01/05/2022 1:10 AM CDT BASIC METABOLIC PANEL (CALCIUM TOTAL) AM Draw 01/05/2022 1:10 AM CDT PHOSPHORUS BLOOD Routine 01/05/2022 1:10 AM CDT MAGNESIUM BLOOD Routine 01/05/2022 1:10 AM CDT VALPROIC ACID LEVEL Routine 01/05/2022 1 :10 AM CDT GLUCOSE - POINT OF CARE Routine 01/04/2022 7:55 PM CDT CBC W AUTO DIFFERENTIAL AM Draw 01/04/2022 9:24 AM CDT BASIC METABOLIC PANEL (CALCIUM TOTAL) AM Draw 01/04/2022 9:24 AM CDT PHOSPHORUS BLOOD Routine 01/04/2022 9:24 AM CDT MAGNESIUM BLOOD Routine 01/04/2022 9:24 AM CDT GLUCOSE - POINT OF CARE Routine 01/04/2022 8:35 AM CDT GLUCOSE - POINT OF CARE Routine 01/04/2022 4:17 AM CDT GLUCOSE - POINT OF CARE Routine 01/04/2022 12:39 AM CDT GLUCOSE - POINT OF CARE Routine 01/03/2022 8:07 PM CDT GLUCOSE - POINT OF CARE Routine 01/03/2022 5:40 PM CDT GLUCOSE - POINT OF CARE Routine 01/03/2022 10:35 AM CDT GLUCOSE - POINT OF CARE Routine 01/03/2022 7:27 AM CDT CBC W AUTO DIFFERENTIAL AM Draw 01/03/2022 3:38 AM CDT BASIC METABOLIC PANEL (CALCIUM TOTAL) AM Draw 01/03/2022 3:38 AM CDT PHOSPHORUS BLOOD Routine 01/03/2022 3:38 AM CDT MAGNESIUM BLOOD Routine 01/03/2022 3:38 AM CDT GLUCOSE - POINT OF CARE Routine 01/02/2022 11:34 PM CDT GLUCOSE - POINT OF CARE Routine 01/02/2022 7:39 PM CDT GLUCOSE - POINT OF CARE Routine 01/02/2022 4:00 PM CDT GLUCOSE - POINT OF CARE Routine 01/02/2022 11:16 AM CDT GLUCOSE - POINT OF CARE Routine 01/02/2022 7:44 AM CDT CBC W AUTO DIFFERENTIAL AM Draw 01/02/2022 3:46 AM CDT BASIC METABOLIC PANEL (CALCIUM TOTAL) AM Draw 01/02/2022 3:46 AM CDT PHOSPHORUS BLOOD Routine 01/02/2022 3:46 AM CDT MAGNESIUM BLOOD Routine 01/02/2022 3:46 AM CDT HEMOGLOBIN A1C Routine 01/01/2022 3:49 AM CDT CBC W AUTO DIFFERENTIAL AM Draw 01/01/2022 3:49 AM CDT BASIC METABOLIC PANEL (CALCIUM TOTAL) AM Draw 01/01/2022 3:49 AM CDT PHOSPHORUS BLOOD Routine 01/01/2022 3:49 AM CDT MAGNESIUM BLOOD Routine 01/01/2022 3:49 AM CDT GLUCOSE - POINT OF CARE Routine 12/31/2021 11:35 PM CDT XR ABDOMEN KUB PORTABLE STAT 12/31/2021 8:53 AM CDT Seizure (HCC) GLUCOSE - POINT OF CARE Routine 12/31/2021 7:03 AM CDT BASIC METABOLIC PANEL (CALCIUM TOTAL) AM Draw 12/31/2021 5:04 AM CDT MAGNESIUM BLOOD Routine 12/31/2021 5:04 AM CDT CBC W AUTO DIFFERENTIAL AM Draw 12/31/2021 4:12 AM CDT PHOSPHORUS BLOOD Routine 12/31/2021 4:12 AM CDT CK BLOOD Routine 12/31/2021 4:12 AM CDT XR ABDOMEN KUB PORTABLE STAT 12/30/2021 4:12 PM CDT Dysphagia, oropharyngeal phase FL ORAL NJ OR D TUBE PLACEMENT Routine 12/30/2021 2:40 PM CDT 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, not intractable, without status epilepticus (HCC) EKG 12-LEAD Routine 12/30/2021 11:06 AM CDT Seizure (HCC) OT EVAL AND TREAT Routine 12/30/2021 7:1 6 AM CDT PT EVAL AND TREAT Routine 12/30/2021 7:1 6 AM CDT XR CHEST 1VW PORTABLE STAT 12/30/2021 6:26 AM CDT 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, not intractable, without status epilepticus (HCC) EEG VIDEO MONITORING Routine 12/30/2021 4:03 AM CDT CBC W AUTO DIFFERENTIAL AM Draw 12/30/2021 1:19 AM CDT COMPREHENSIVE METABOLIC PANEL AM Draw 12/30/2021 1:19 AM CDT VALPROIC ACID LEVEL Routine 12/30/2021 1 :[address] ANGIO BRAIN NECK STROKE Routine 12/29/2021 8:04 AM CDT Unspecified sequelae of other cerebrovascular disease CT BRAIN STROKE Routine 12/29/2021 7:55 AM CDT Weakness GLUCOSE - POINT OF CARE Routine 12/29/2021 7:41 AM CDT CBC W/O DIFFERENTIAL AM Draw 12/29/2021 7:21 AM CDT COMPREHENSIVE METABOLIC PANEL AM Draw 12/29/2021 7:21 AM CDT URINALYSIS REFLEX MICROSCOPIC REFLEX CULTURE Routine 12/28/2021 12:33 PM CDT CBC W/O DIFFERENTIAL AM Draw 12/27/2021 1:17 AM CDT COMPREHENSIVE METABOLIC PANEL AM Draw 12/27/2021 1:17 AM CDT PHOSPHORUS BLOOD AM Draw 12/27/2021 1:17 AM CDT MAGNESIUM BLOOD AM Draw 12/27/2021 1:17 AM CDT OT EVAL AND TREAT Routine 12/26/2021 2:0 2 PM CDT LACOSAMIDE Routine 12/21/2021 12:45 PM CDT Seizures (HCC) LEVETIRACETAM LEVEL Routine 12/21/2021 1 2:45 PM CDT Seizures (HCC) CBC W AUTO DIFFERENTIAL Routine 12/21/2021 12:45 PM CDT Seizures (HCC) COMPREHENSIVE METABOLIC PANEL Routine 12/21/2021 12:45 PM CDT Seizures (HCC) VALPROIC ACID LEVEL Routine 12/21/2021 1 2:45 PM CDT Seizures (HCC) documented in this encounter Results * GLUCOSE - POINT OF CARE (01/07/2022 4:29 PM CDT) Glucose WB/POC 99 70 - 115 mg/dL 01/07/2022 4:31 PM CDT [facility] Specimen Type Cap Fingerstick 2021 4:31 PM CDT [facility] Blood BLOOD SPECIMEN / Unknown 01/07/2022 4:29 PM CDT 01/07/2022 4:31 PM CDT Humberto Payan MD LAB - POINT OF CARE ORDERABLES [facility] [address] [place] [phone], [facility] [phone] * GLUCOSE - POINT OF CARE (01/07/2022 11:26 AM CDT) Glucose WB/POC 99 70 - 115 mg/dL 01/07/2022 11:27 AM CDT [facility] Specimen Type Cap Fingerstick 2021 11:27 AM CDT [facility] Blood BLOOD SPECIMEN / Unknown 01/07/2022 11:26 AM CDT 01/07/2022 11:27 AM CDT Humberto Payan MD LAB - POINT OF CARE ORDERABLES [address] [address], [place] [phone] * PHOSPHORUS BLOOD (01/07/2022 7:33 AM CDT) Phosphorus 2.8 2.8 - 5.1 mg/dL 01/07/2022 8:21 AM CDT [facility] Blood BLOOD SPECIMEN / Unknown Lab Venipuncture / Unknown 01/07/2022 7:33 AM CDT 01/07/2022 7:53 AM CDT Sean Raymundo DO LAB - CHEMISTRY MARSHAL MEDEROS Performing Organization Address City/[facility]/ZIP Co de Phone Number [address] [address], [place] [phone] * MAGNESIUM BLOOD (01/07/2022 7:33 AM CDT) Magnesium 1.8 1.6 - 2.6 mg/dL 01/07/2022 8:21 AM CDT [facility] Blood BLOOD SPECIMEN / Unknown Lab Venipuncture / Unknown 01/07/2022 7:33 AM CDT 01/07/2022 7:53 AM CDT Sean Raymundo DO LAB - CHEMISTRY MARSHAL MEDEROS Performing Organization Address City/[facility]/ZIP Co de Phone Number [address] [address], [place] [phone] * (ABNORMAL) BASIC METABOLIC PANEL (CALCIUM TOTAL) (01/07/2022 7:33 AM CDT) BUN 11 7 - 26 mg/dL 01/07/2022 8:21 AM [facility] Creatinine 0.65(L) 0.71 - 1.16 mg/dL 01/07/2022 8:21 AM [facility] Sodium 138 136 - 145 mmol/L 01/07/2022 8:21 AM [facility] Potassium 4.4 3.5 - 4.5 mmol/L 01/07/2022 8:21 AM [facility] Chloride 104 98 - 107 mmol/L 01/07/2022 8:21 AM [facility] CO2 25 22 - 29 mmol/L 01/07/2022 8:21 AM [facility] Glucose 90 70 - 115 mg/dL 01/07/2022 8:21 AM [facility] Calcium 9.1 8.4 - 10.2 mg/dL 01/07/2022 8:21 AM [facility] Anion Gap 13 8 - 18 01/07/2022 8:21 AM [facility] BUN/Creatinine Ratio 17 7 - 23 01/07/2022 8:21 AM [facility] Osmolality Calculated 285 270 - 300 mOsm/kg 01/07/2022 8:21 AM [facility] eGFR by CKD-EPI >90 >=90 mL/min/1.7 3 m2 01/07/2022 8:21 AM [facility] Blood BLOOD SPECIMEN / Unknown Lab Venipuncture / Unknown 01/07/2022 7:33 AM CDT 01/07/2022 7:53 AM T Sean Raymundo DO LAB - CHEMISTRY ORDE GATITO [facility] [address] [place] [address], [facility] [phone] * (ABNORMAL) CBC W AUTO DIFFERENTIAL (01/07/2022 7:33 AM CDT) WBC 9.0 3.5 - 10.5 10? 3 /uL 01/07/2022 8:01 AM [facility] RBC 4.10(L) 4.30 - 5.70 10? 6 /uL 01/07/2022 8:01 AM [facility] Hemoglobin 13.1 12.0 - 17.6 g/dL 01/07/2022 8:01 AM [facility] Hematocrit 38.7 35.2 - 51.7 % 01/07/2022 8:01 AM [facility] MCV 94.4 80.7 - 98.3 fL 01/07/2022 8:01 AM [facility] MCH 32.0 26.7 - 34.0 pg 01/07/2022 8:01 AM [facility] MCHC 33.9 30.8 - 35.9 g/dL 01/07/2022 8:01 AM [facility] Platelet Count 137(L) 150 - 400 10? 3 /uL 01/07/2022 8:01 AM [facility] RDW-SD 41.2 36.0 - 50.0 fL 01/07/2022 8:01 AM [facility] RDW-CV 12.0 11.2 - 14.8 % 01/07/2022 8:01 AM [facility] MPV 12.3 9.4 - 12.9 fL 01/07/2022 8:01 AM [facility] nRBC Absolute 0.00 0 10? 3 /uL 01/07/2022 8:01 AM [facility] nRBC Auto 0.0 0 /100 WBC 01/07/2022 8:01 AM [facility] Neutrophils % 53.9 35.0 - 70.0 % 01/07/2022 8:01 AM [facility] Lymphocytes % 31.4 20.0 - 43.0 % 01/07/2022 8:01 AM [facility] Monocytes % 10.6 5.0 - 13.0 % 01/07/2022 8:01 AM [facility] Eosinophils % 3.1 0.0 - 6.0 % 01/07/2022 8:01 AM [facility] Basophil % 0.1 0.0 - 2.0 % 01/07/2022 8:01 AM [facility] Neutrophils Absolute 4.85 1.60 - 7.00 10? 3 /uL 01/07/2022 8:01 AM [facility] Lymphocyte Absolute 2.83 1.10 - 3.90 10? 3 /uL 01/07/2022 8:01 AM [facility] Monocytes Absolute 0.95 0.26 - 1.07 10? 3 /uL 01/07/2022 8:01 AM [facility] Eosinophils Absolute 0.28 0.00 - 0.47 10? 3 /uL 01/07/2022 8:01 AM [facility] Basophils Absolute 0.01 0.00 - 0.08 10? 3 /uL 01/07/2022 8:01 AM [facility] Immature Granulocytes % 0.9 0.0 - 1.0 % 01/07/2022 8:01 AM [facility] Immature Granulocytes Absolute 0.08 01/07/2022 8:01 AM [facility] Blood BLOOD SPECIMEN / Unknown Lab Venipuncture / Unknown 01/07/2022 7:33 AM CDT 01/07/2022 7:53 AM CDT Sean Raymundo DO LAB - HEMATOLOGY ORD ERABLES [address] [address], [facility] [phone] * GLUCOSE - POINT OF CARE (01/07/2022 7:28 AM CDT) Glucose WB/POC 85 70 - 115 mg/dL 01/07/2022 7:33 AM CDT [facility] Specimen Type Cap Fingerstick 2021 7:33 AM CDT [facility] Blood BLOOD SPECIMEN / Unknown 01/07/2022 7:28 AM CDT 01/07/2022 7:33 AM CDT Humberto Payan MD LAB - POINT OF CARE ORDERABLES [address] [address], [place] [phone] * GLUCOSE - POINT OF CARE (01/07/2022 12:41 AM CDT) Glucose WB/POC 114 70 - 115 mg/dL 01/07/2022 12:54 AM CDT [facility] Specimen Type Cap Fingerstick 2021 12:54 AM CDT [facility] Blood BLOOD SPECIMEN / Unknown 01/07/2022 12:41 AM CDT 01/07/2022 12:54 AM CDT Humberto Payan MD LAB - POINT OF CARE ORDERABLES [facility] [address] [place] [address], [place] [phone] * GLUCOSE - POINT OF CARE (01/06/2022 7:42 PM CDT) Glucose WB/POC 111 70 - 115 mg/dL 01/06/2022 7:47 PM CDT [facility] Specimen Type Cap Fingerstick 2021 7:47 PM CDT [facility] Blood BLOOD SPECIMEN / Unknown 01/06/2022 7:42 PM CDT 01/06/2022 7:47 PM CDT Humberto Payan MD LAB - POINT OF CARE ORDERABLES [facility] [address] [place] [address], [place] [phone] * GLUCOSE - POINT OF CARE (01/06/2022 5:25 PM CDT) Glucose WB/POC 113 70 - 115 mg/dL 01/06/2022 5:26 PM CDT [facility] Specimen Type Cap Fingerstick 2021 5:26 PM CDT [facility] Blood BLOOD SPECIMEN / Unknown 01/06/2022 5:25 PM CDT 01/06/2022 5:26 PM CDT Humberto Payan MD LAB - POINT OF CARE ORDERABLES Performing Organization Address City/[facility]/ZIP Co de Phone Number [facility] [address] [place] [phone], [place] [phone] * GLUCOSE - POINT OF CARE (01/06/2022 3:06 PM CDT) Glucose WB/POC 115 70 - 115 mg/dL 01/06/2022 3:07 PM CDT [facility] Specimen Type Cap Fingerstick 2021 3:07 PM CDT [facility] Blood BLOOD SPECIMEN / Unknown 01/06/2022 3:06 PM CDT 01/06/2022 3:07 PM CDT Humberto Payan MD LAB - POINT OF CARE ORDERABLES Performing Organization Address City/[facility]/ZIP Co de Phone Number [address] [address], [place] [phone] * GLUCOSE - POINT OF CARE (01/06/2022 11:36 AM CDT) Glucose WB/POC 115 70 - 115 mg/dL 01/06/2022 11:44 AM CDT [facility] Specimen Type Cap Fingerstick 2021 11:44 AM CDT [facility] Blood BLOOD SPECIMEN / Unknown 01/06/2022 11:36 AM CDT 01/06/2022 11:44 AM CDT Humberto Payan MD LAB - POINT OF CARE ORDERABLES [address] [address], [place] [phone] * GLUCOSE - POINT OF CARE (01/06/2022 7:55 AM CDT) Glucose WB/POC 85 70 - 115 mg/dL 01/06/2022 8:00 AM CDT [facility] Specimen Type Cap Fingerstick 2021 8:00 AM CDT [facility] Blood BLOOD SPECIMEN / Unknown 01/06/2022 7:55 AM CDT 01/06/2022 8:00 AM CDT Humberto Payan MD LAB - POINT OF CARE ORDERABLES [facility] [address] [place] [address], [place] [phone] * GLUCOSE - POINT OF CARE (01/06/2022 3:54 AM CDT) Glucose WB/POC 99 70 - 115 mg/dL 01/06/2022 4:27 AM CDT [facility] Specimen Type Cap Fingerstick 2021 4:27 AM CDT [facility] Blood BLOOD SPECIMEN / Unknown 01/06/2022 3:54 AM CDT 01/06/2022 4:27 AM CDT Humberto Payan MD LAB - POINT OF CARE ORDERABLES Performing Organization Address City/[facility]/ZIP Co de Phone Number [address] [address], [place] [phone] * GLUCOSE - POINT OF CARE (01/06/2022 2:04 AM CDT) Glucose WB/POC 102 70 - 115 mg/dL 01/06/2022 2:12 AM CDT [facility] Specimen Type Cap Fingerstick 2021 2:12 AM CDT [facility] Blood BLOOD SPECIMEN / Unknown 01/06/2022 2:04 AM CDT 01/06/2022 2:12 AM CDT Humberto Payan MD LAB - POINT OF CARE ORDERABLES [address] [address], [place] [phone] * PHOSPHORUS BLOOD (01/06/2022 1:21 AM CDT) Phosphorus 2.8 2.8 - 5.1 mg/dL 01/06/2022 2:08 AM CDT [facility] Blood BLOOD SPECIMEN / Unknown Lab Venipuncture / Unknown 01/06/2022 1:21 AM CDT 01/06/2022 1:38 AM CDT Sean Raymundo DO LAB - CHEMISTRY ORDByron ABRAMSSHILPA [address] [address], [facility] [phone] * MAGNESIUM BLOOD (01/06/2022 1:21 AM CDT) Magnesium 1.9 1.6 - 2.6 mg/dL 01/06/2022 2:08 AM T [facility] Blood BLOOD SPECIMEN / Unknown Lab Venipuncture / Unknown 01/06/2022 1:21 AM CDT 01/06/2022 1:38 AM CDT Sean Raymundo DO LAB - CHEMISTRY ORDByron GATITO [address] [address], [facility] [phone] * (ABNORMAL) BASIC METABOLIC PANEL (CALCIUM TOTAL) (01/06/2022 1:21 AM CDT) BUN 20 7 - 26 mg/dL 01/06/2022 2:08 AM [facility] Creatinine 0.81 0.71 - 1.16 mg/dL 01/06/2022 2:08 AM [facility] Sodium 142 136 - 145 mmol/L 01/06/2022 2:08 AM [facility] Potassium 4.3 3.5 - 4.5 mmol/L 01/06/2022 2:08 AM [facility] Chloride 105 98 - 107 mmol/L 01/06/2022 2:08 AM [facility] CO2 26 22 - 29 mmol/L 01/06/2022 2:08 AM [facility] Glucose 102 70 - 115 mg/dL 01/06/2022 2:08 AM [facility] Calcium 8.7 8.4 - 10.2 mg/dL 01/06/2022 2:08 AM [facility] Anion Gap 15 8 - 18 01/06/2022 2:08 AM [facility] BUN/Creatinine Ratio 25(H) 7 - 23 01/06/2022 2:08 AM [facility] Osmolality Calculated 297 270 - 300 mOsm/kg 01/06/2022 2:08 AM [facility] eGFR by CKD-EPI >90 >=90 mL/min/1.7 3 m2 01/06/2022 2:08 AM [facility] Blood BLOOD SPECIMEN / Unknown Lab Venipuncture / Unknown 01/06/2022 1:21 AM CDT 01/06/2022 1:38 AM CDT Sean Raymundo DO LAB - CHEMISTRY [facility] [address] [place] [id number], [facility] [phone] * (ABNORMAL) CBC W AUTO DIFFERENTIAL (01/06/2022 1:21 AM CDT) WBC 9.0 3.5 - 10.5 10? 3 /uL 01/06/2022 1:55 AM [facility] RBC 3.93(L) 4.30 - 5.70 10? 6 /uL 01/06/2022 1:55 AM [facility] Hemoglobin 12.4 12.0 - 17.6 g/dL 01/06/2022 1:55 AM [facility] Hematocrit 37.1 35.2 - 51.7 % 01/06/2022 1:55 AM [facility] MCV 94.4 80.7 - 98.3 fL 01/06/2022 1:55 AM [facility] MCH 31.6 26.7 - 34.0 pg 01/06/2022 1:55 AM [facility] MCHC 33.4 30.8 - 35.9 g/dL 01/06/2022 1:55 AM [facility] Platelet Count 136(L) 150 - 400 10? 3 /uL 01/06/2022 1:55 AM [facility] RDW-SD 41.6 36.0 - 50.0 fL 01/06/2022 1:55 AM [facility] RDW-CV 11.9 11.2 - 14.8 % 01/06/2022 1:55 AM [facility] MPV 12.6 9.4 - 12.9 fL 01/06/2022 1:55 AM [facility] nRBC Absolute 0.00 0 10? 3 /uL 01/06/2022 1:55 AM [facility] nRBC Auto 0.0 0 /100 WBC 01/06/2022 1:55 AM [facility] Neutrophils % 59.8 35.0 - 70.0 % 01/06/2022 1:55 AM [facility] Lymphocytes % 27.5 20.0 - 43.0 % 01/06/2022 1:55 AM [facility] Monocytes % 9.5 5.0 - 13.0 % 01/06/2022 1:55 AM [facility] Eosinophils % 2.4 0.0 - 6.0 % 01/06/2022 1:55 AM [facility] Basophil % 0.1 0.0 - 2.0 % 01/06/2022 1:55 AM [facility] Neutrophils Absolute 5.37 1.60 - 7.00 10? 3 /uL 01/06/2022 1:55 AM [facility] Lymphocyte Absolute 2.47 1.10 - 3.90 10? 3 /uL 01/06/2022 1:55 AM [facility] Monocytes Absolute 0.85 0.26 - 1.07 10? 3 /uL 01/06/2022 1:55 AM [facility] Eosinophils Absolute 0.22 0.00 - 0.47 10? 3 /uL 01/06/2022 1:55 AM [facility] Basophils Absolute 0.01 0.00 - 0.08 10? 3 /uL 01/06/2022 1:55 AM [facility] Immature Granulocytes % 0.7 0.0 - 1.0 % 01/06/2022 1:55 AM CDT [facility] Immature Granulocytes Absolute 0.06 01/06/2022 1:55 AM CDT [facility] Blood BLOOD SPECIMEN / Unknown Lab Venipuncture / Unknown 01/06/2022 1:21 AM CDT 01/06/2022 1:38 AM CDT Sean Raymundo DO LAB - HEMATOLOGY ORD ERABLES [address] [address], [place] [phone] * GLUCOSE - POINT OF CARE (01/06/2022 12:21 AM CDT) Glucose WB/POC 114 70 - 115 mg/dL 01/06/2022 12:26 AM CDT [facility] Specimen Type Cap Fingerstick 2021 12:26 AM CDT [facility] Blood BLOOD SPECIMEN / Unknown 01/06/2022 12:21 AM CDT 01/06/2022 12:26 AM CDT Humberto Payan MD LAB - POINT OF CARE ORDERABLES Performing Organization Address City/[facility]/ZIP Co de Phone Number [address] [address], [place] [phone] * GLUCOSE - POINT OF CARE (01/05/2022 9:51 PM CDT) Glucose WB/POC 109 70 - 115 mg/dL 01/05/2022 9:51 PM CDT [facility] Specimen Type Cap Fingerstick 2021 9:51 PM CDT [facility] Blood BLOOD SPECIMEN / Unknown 01/05/2022 9:51 PM CDT 01/05/2022 9:51 PM CDT Humberto Payan MD LAB - POINT OF CARE ORDERABLES [address] [address], [place] [phone] * GLUCOSE - POINT OF CARE (01/05/2022 5:34 PM CDT) Glucose WB/POC 114 70 - 115 mg/dL 01/05/2022 5:35 PM CDT [facility] Specimen Type Cap Fingerstick 2021 5:35 PM CDT [facility] Blood BLOOD SPECIMEN / Unknown 01/05/2022 5:34 PM CDT 01/05/2022 5:35 PM CDT Humberto Payan MD LAB - POINT OF CARE ORDERABLES [facility] [address] [place] [address], [place] [phone] * (ABNORMAL) GLUCOSE - POINT OF CARE (01/05/2022 12:25 PM CDT) Glucose WB/POC 121(H) 70 - 115 mg/dL 01/05/2022 12:31 PM CDT [facility] Specimen Type Venous 01/05/2022 12:31 PM CDT [facility] Blood BLOOD SPECIMEN / Unknown 01/05/2022 12:25 PM CDT 01/05/2022 12:31 PM CDT Humberto Payan MD LAB - POINT OF CARE ORDERABLES [facility] [address] [place] [address], [place] [phone] * GLUCOSE - POINT OF CARE (01/05/2022 8:17 AM CDT) Glucose WB/POC 87 70 - 115 mg/dL 01/05/2022 8:24 AM CDT [facility] Specimen Type Venous 01/05/2022 8:24 AM CDT [facility] Blood BLOOD SPECIMEN / Unknown 01/05/2022 8:17 AM CDT 01/05/2022 8:24 AM CDT Humberto Payan MD LAB - POINT OF CARE ORDERABLES [address] [address], [place] [phone] * GLUCOSE - POINT OF CARE (01/05/2022 4:27 AM CDT) Glucose WB/POC 93 70 - 115 mg/dL 01/05/2022 4:31 AM CDT [facility] Specimen Type Cap Fingerstick 2021 4:31 AM CDT [facility] Blood BLOOD SPECIMEN / Unknown 01/05/2022 4:27 AM CDT 01/05/2022 4:31 AM CDT Humberto Payan MD LAB - POINT OF CARE ORDERABLES Performing Organization Address City/[facility]/ZIP Co de Phone Number [address] [address], [place] [phone] * PHOSPHORUS BLOOD (01/05/2022 1:10 AM CDT) Phosphorus 3.0 2.8 - 5.1 mg/dL 01/05/2022 2:26 AM CDT [facility] Blood BLOOD SPECIMEN / Unknown Lab Venipuncture / Unknown 01/05/2022 1:10 AM CDT 01/05/2022 1:55 AM CDT Sean Raymundo DO LAB - CHEMISTRY MARSHAL MEDEROS [address] [address], [place] [phone] * MAGNESIUM BLOOD (01/05/2022 1:10 AM CDT) Magnesium 1.8 1.6 - 2.6 mg/dL 01/05/2022 2:26 AM CDT [facility] Blood BLOOD SPECIMEN / Unknown Lab Venipuncture / Unknown 01/05/2022 1:10 AM CDT 01/05/2022 1:55 AM CDT Sean Raymundo DO LAB - CHEMISTRY ORDByron MEDEROS [facility] [address] [place] [address], [facility] [phone] * (ABNORMAL) BASIC METABOLIC PANEL (CALCIUM TOTAL) (01/05/2022 1:10 AM CDT) BUN 23 7 - 26 mg/dL 01/05/2022 2:26 AM [facility] Creatinine 0.80 0.71 - 1.16 mg/dL 01/05/2022 2:26 AM [facility] Sodium 142 136 - 145 mmol/L 01/05/2022 2:26 AM [facility] Potassium 3.8 3.5 - 4.5 mmol/L 01/05/2022 2:26 AM [facility] Chloride 105 98 - 107 mmol/L 01/05/2022 2:26 AM [facility] CO2 27 22 - 29 mmol/L 01/05/2022 2:26 AM [facility] Glucose 94 70 - 115 mg/dL 01/05/2022 2:26 AM [facility] Calcium 8.9 8.4 - 10.2 mg/dL 01/05/2022 2:26 AM [facility] Anion Gap 14 8 - 18 01/05/2022 2:26 AM [facility] BUN/Creatinine Ratio 29(H) 7 - 23 01/05/2022 2:26 AM [facility] Osmolality Calculated 297 270 - 300 mOsm/kg 01/05/2022 2:26 AM [facility] eGFR by CKD-EPI >90 >=90 mL/min/1.7 3 m2 01/05/2022 2:26 AM [facility] Blood BLOOD SPECIMEN / Unknown Lab Venipuncture / Unknown 01/05/2022 1:10 AM CDT 01/05/2022 1:55 AM CDT Sean Raymundo DO LAB - CHEMISTRY LUCIByron MEDEROS [facility] [address] [place] [address] [phone] * (ABNORMAL) CBC W AUTO DIFFERENTIAL (01/05/2022 1:10 AM T) WBC 8.2 3.5 - 10.5 10? 3 /uL 01/05/2022 2:31 AM [facility] RBC 4.01(L) 4.30 - 5.70 10? 6 /uL 01/05/2022 2:31 AM [facility] Hemoglobin 12.7 12.0 - 17.6 g/dL 01/05/2022 2:31 AM [facility] Hematocrit 37.9 35.2 - 51.7 % 01/05/2022 2:31 AM [facility] MCV 94.5 80.7 - 98.3 fL 01/05/2022 2:31 AM [facility] MCH 31.7 26.7 - 34.0 pg 01/05/2022 2:31 AM [facility] MCHC 33.5 30.8 - 35.9 g/dL 01/05/2022 2:31 AM [facility] Platelet Count 144(L) 150 - 400 10? 3 /uL 01/05/2022 2:31 AM [facility] RDW-SD 42.1 36.0 - 50.0 fL 01/05/2022 2:31 AM [facility] RDW-CV 12.1 11.2 - 14.8 % 01/05/2022 2:31 AM [facility] MPV 13.0(H) 9.4 - 12.9 fL 01/05/2022 2:31 AM [facility] nRBC Absolute 0.00 0 10? 3 /uL 01/05/2022 2:31 AM [facility] nRBC Auto 0.0 0 /100 WBC 01/05/2022 2:31 AM [facility] Neutrophils % 52.4 35.0 - 70.0 % 01/05/2022 2:31 AM [facility] Lymphocytes % 34.6 20.0 - 43.0 % 01/05/2022 2:31 AM CDT [facility] Monocytes % 8.7 5.0 - 13.0 % 01/05/2022 2:31 AM [facility] Eosinophils % 3.7 0.0 - 6.0 % 01/05/2022 2:31 AM [facility] Basophil % 0.0 0.0 - 2.0 % 01/05/2022 2:31 AM T [facility] Neutrophils Absolute 4.30 1.60 - 7.00 10? 3 /uL 01/05/2022 2:31 AM T [facility] Lymphocyte Absolute 2.84 1.10 - 3.90 10? 3 /uL 01/05/2022 2:31 AM [facility] Monocytes Absolute 0.71 0.26 - 1.07 10? 3 /uL 01/05/2022 2:31 AM [facility] Eosinophils Absolute 0.30 0.00 - 0.47 10? 3 /uL 01/05/2022 2:31 AM [facility] Basophils Absolute 0.00 0.00 - 0.08 10? 3 /uL 01/05/2022 2:31 AM [facility] Immature Granulocytes % 0.6 0.0 - 1.0 % 01/05/2022 2:31 AM [facility] Immature Granulocytes Absolute 0.05 01/05/2022 2:31 AM [facility] Blood BLOOD SPECIMEN / Unknown Lab Venipuncture / Unknown 01/05/2022 1:10 AM CDT 01/05/2022 1:55 AM CDT Sean Raymundo DO LAB - HEMATOLOGY ORD ERABLES [facility] [address] [place] [address], [facility] [phone] * (ABNORMAL) LEVETIRACETAM LEVEL (01/05/2022 1:10 AM CDT) Levetiracetam 59(H) 10 - 40 ug/mL 01/06/2022 11:11 AM CDT [facility] ([facility]) Comment: INTERPRETIVE INFORMATION: Keppra (Levetiracetam) Therapeutic Range: ??10-40 ug/mL ?Toxic: ??Not well Established Pharmacokinetics of levetiracetam are affected by renal function. Adverse effects may include somnolence, weakness, headache and vomiting. This levetiracetam (Keppra) immunoassay uses the [employer] reagents, which has known cross-reactivity with the drug brivaracetam (Briviact) and may report inaccurate results. Patients transitioning from levetiracetam to brivaracetam or those who are using both medications should not monitor drug concentrations with the [facility] [employer] assay. These patients should be monitored using a validated chromatographic methodology that distinguishes between drugs to determine drug concentrations. Performed By: [facility] [address] [place] [address] Piano Mechanic: Power Milian MD, PhD Blood BLOOD SPECIMEN / Unknown Lab Venipuncture / Unknown 01/05/2022 1:10 AM CDT 01/05/2022 1:53 AM CDT Humberto Payan MD LAB - THERAPEU TIC DRUG MONITORING ORDERABLES [facility] [employer] ([facility]) [address] [place] [address], [facility] * (ABNORMAL) LACOSAMIDE (01/05/2022 1:10 AM CDT) Lacosamide 12.2(H) 1.0 - 10.0 ug/mL 01/07/2022 2:59 PM CDT [facility] ([facility]) Comment: INTERPRETIVE INFORMATION: Lacosamide, Serum or Plasma [...] developed and its performance characteristics determined by [facility]. It has not been cleared or approved by the [place] Food and Drug Administration. This test was performed in a CLIA-certified laboratory and is intended for clinical purposes. Performed By: [facility] [address] [place] [address] Piano Mechanic: Power Milian MD, PhD Blood BLOOD SPECIMEN / Unknown Lab Venipuncture / Unknown 01/05/2022 1:10 AM CDT 01/05/2022 1:53 AM CDT Humberto Payan MD LAB - CHEMISTR Y ORDERABLES [facility] ([facility]) [address] [place] [address], [facility] * CLOBAZAM QUANT BLOOD (01/05/2022 1:10 AM CDT) Clobazam 153 30 - 300 ng/mL 01/07/2022 12:51 PM CDT [facility] ([facility]) Comment: INTERPRETIVE INFORMATION: Clobazam and Metabolite, Quant, ?S/P Clobazam Therapeutic Range: 30-300 ng/mL Toxic Range: Greater than 500 ng/mL N-Desmethylclobazam Therapeutic Range: 300-3000 ng/mL Toxic Range: Greater than 5000 ng/mL Clobazam is a benzodiazepine drug indicated for adjunctive treatment for seizures associated with [place]-Gastaut syndrome in patients 2 years and older. ??The therapeutic range is based on serum, pre-dose (trough) draw collection at steady-state concentration. ??The pharmacokinetics of clobazam are influenced by drug-drug interactions and by poor [id number] metabolism. ??The metabolite, N-desmethylclobazam has about 20% activity of clobazam. ??Adverse effects may include constipation, somnolence, sedation and skin rash. ??The concomitant use of clobazam with other central nervous system (RAG BALER) depressants may increase the risk of somnolence and sedation. Test developed and characteristics determined by [facility]. See Compliance Statement B: Familytic/CS N-Desmethylclobazam 334 300 - 3000 ng/mL 01/07/2022 12:51 PM CDT [facility] ([facility]) Comment: Performed By: [facility] [address] [place] [address] Piano Mechanic: Power Milian MD, PhD Blood BLOOD SPECIMEN / Unknown Lab Venipuncture / Unknown 01/05/2022 1:10 AM CDT 01/05/2022 1:53 AM CDT Humberto Payan MD LAB - CHEMISTR Y ORDERABLES [facility] ([facility]) [address] [place], [place] [address] * (ABNORMAL) VALPROIC ACID LEVEL (01/05/2022 1:10 AM CDT) Pathologist [facility] Valproic Acid Total 118(H) 50 - 100 ug/mL 01/05/2022 2:26 AM CDT [facility] Blood BLOOD SPECIMEN / Unknown Lab Venipuncture / Unknown 01/05/2022 1:10 AM CDT 01/05/2022 1:55 AM CDT Humberto Payan MD LAB - CHEMISTR Y ORDERABLES [address] [address], [facility] [phone] * (ABNORMAL) GLUCOSE - POINT OF CARE (01/04/2022 7:55 PM CDT) Pathologist [facility] Glucose WB/POC 121(H) 70 - 115 mg/dL 01/04/2022 8:08 PM CDT [facility] Specimen Type Cap Fingerstick 2021 8:08 PM CDT [facility] Blood BLOOD SPECIMEN / Unknown 01/04/2022 7:55 PM CDT 01/04/2022 8:08 PM CDT Humberto Payan MD LAB - POINT OF CARE ORDERABLES [facility] [address] [place] [address], [facility] [phone] * PHOSPHORUS BLOOD (01/04/2022 9:24 AM CDT) Phosphorus 2.8 2.8 - 5.1 mg/dL 01/04/2022 10:07 AM CDT [facility] Blood BLOOD SPECIMEN / Unknown Lab Venipuncture / Unknown 01/04/2022 9:24 AM CDT 01/04/2022 9:39 AM CDT Sean Raymundo DO LAB - CHEMISTRY MARSHAL MEDEROS [address] [address], [facility] [phone] * MAGNESIUM BLOOD (01/04/2022 9:24 AM CDT) Magnesium 1.8 1.6 - 2.6 mg/dL 01/04/2022 10:07 AM CDT [facility] Blood BLOOD SPECIMEN / Unknown Lab Venipuncture / Unknown 01/04/2022 9:24 AM CDT 01/04/2022 9:39 AM CDT Sean Raymundo DO LAB - CHEMISTRY MARSHAL MEDEROS [address] [address], [facility] [phone] * (ABNORMAL) BASIC METABOLIC PANEL (CALCIUM TOTAL) (01/04/2022 9:24 AM CDT) BUN 18 7 - 26 mg/dL 01/04/2022 10:07 AM CDT [facility] Creatinine 0.78 0.71 - 1.16 mg/dL 01/04/2022 10:07 AM T [facility] Sodium 144 136 - 145 mmol/L 01/04/2022 10:07 AM CDT [facility] Potassium 3.7 3.5 - 4.5 mmol/L 01/04/2022 10:07 AM T [facility] Chloride 105 98 - 107 mmol/L 01/04/2022 10:07 AM [facility] CO2 32(H) 22 - 29 mmol/L 01/04/2022 10:07 AM [facility] Glucose 87 70 - 115 mg/dL 01/04/2022 10:07 AM [facility] Calcium 8.9 8.4 - 10.2 mg/dL 01/04/2022 10:07 AM [facility] Anion Gap 11 8 - 18 01/04/2022 10:07 AM [facility] BUN/Creatinine Ratio 23 7 - 23 01/04/2022 10:07 AM [facility] Osmolality Calculated 299 270 - 300 mOsm/kg 01/04/2022 10:07 AM [facility] eGFR by CKD-EPI >90 >=90 mL/min/1.7 3 m2 01/04/2022 10:07 AM [facility] Blood BLOOD SPECIMEN / Unknown Lab Venipuncture / Unknown 01/04/2022 9:24 AM CDT 01/04/2022 9:39 AM T Sean Raymundo DO LAB - CHEMISTRY MARSHAL MEDEROS [facility] Organization Address City/State/ZIP Co de Phone Number [facility] [address] [place] [address], [facility] [phone] * (ABNORMAL) CBC W AUTO DIFFERENTIAL (01/04/2022 9:24 AM CDT) WBC 7.5 3.5 - 10.5 10? 3 /uL 01/04/2022 9:43 AM [facility] RBC 4.15(L) 4.30 - 5.70 10? 6 /uL 01/04/2022 9:43 AM [facility] Hemoglobin 13.1 12.0 - 17.6 g/dL 01/04/2022 9:43 AM [facility] Hematocrit 38.8 35.2 - 51.7 % 01/04/2022 9:43 AM [facility] MCV 93.5 80.7 - 98.3 fL 01/04/2022 9:43 AM [facility] MCH 31.6 26.7 - 34.0 pg 01/04/2022 9:43 AM [facility] MCHC 33.8 30.8 - 35.9 g/dL 01/04/2022 9:43 AM [facility] Platelet Count 131(L) 150 - 400 10? 3 /uL 01/04/2022 9:43 AM [facility] RDW-SD 40.7 36.0 - 50.0 fL 01/04/2022 9:43 AM [facility] RDW-CV 11.9 11.2 - 14.8 % 01/04/2022 9:43 AM [facility] MPV 12.4 9.4 - 12.9 fL 01/04/2022 9:43 AM [facility] nRBC Absolute 0.00 0 10? 3 /uL 01/04/2022 9:43 AM [facility] nRBC Auto 0.0 0 /100 WBC 01/04/2022 9:43 AM [facility] Neutrophils % 44.9 35.0 - 70.0 % 01/04/2022 9:43 AM [facility] Lymphocytes % 39.9 20.0 - 43.0 % 01/04/2022 9:43 AM [facility] Monocytes % 10.3 5.0 - 13.0 % 01/04/2022 9:43 AM [facility] Eosinophils % 4.0 0.0 - 6.0 % 01/04/2022 9:43 AM [facility] Basophil % 0.1 0.0 - 2.0 % 01/04/2022 9:43 AM [facility] Neutrophils Absolute 3.34 1.60 - 7.00 10? 3 /uL 01/04/2022 9:43 AM [facility] Lymphocyte Absolute 2.97 1.10 - 3.90 10? 3 /uL 01/04/2022 9:43 AM [facility] Monocytes Absolute 0.77 0.26 - 1.07 10? 3 /uL 01/04/2022 9:43 AM [facility] Eosinophils Absolute 0.30 0.00 - 0.47 10? 3 /uL 01/04/2022 9:43 AM [facility] Basophils Absolute 0.01 0.00 - 0.08 10? 3 /uL 01/04/2022 9:43 AM CDT [facility] Immature Granulocytes % 0.8 0.0 - 1.0 % 01/04/2022 9:43 AM CDT [facility] Immature Granulocytes Absolute 0.06 01/04/2022 9:43 AM CDT [facility] Blood BLOOD SPECIMEN / Unknown Lab Venipuncture / Unknown 01/04/2022 9:24 AM CDT 01/04/2022 9:39 AM CDT Sean Raymundo DO LAB - HEMATOLOGY ORD ERABLES [address] [address], [facility] [phone] * GLUCOSE - POINT OF CARE (01/04/2022 8:35 AM CDT) Glucose WB/POC 88 70 - 115 mg/dL 01/04/2022 8:40 AM CDT [facility] Specimen Type Arterial 01/04/2022 8:40 AM CDT [facility] Blood BLOOD SPECIMEN / Unknown 01/04/2022 8:35 AM CDT 01/04/2022 8:40 AM CDT Humberto Payan MD LAB - POINT OF CARE ORDERABLES [address] [address], [place] [phone] * GLUCOSE - POINT OF CARE (01/04/2022 4:17 AM CDT) Glucose WB/POC 96 70 - 115 mg/dL 01/04/2022 4:22 AM CDT [facility] Specimen Type Cap Fingerstick 2021 4:22 AM CDT [facility] Blood BLOOD SPECIMEN / Unknown 01/04/2022 4:17 AM CDT 01/04/2022 4:22 AM CDT Humberto Payan MD LAB - POINT OF CARE ORDERABLES [address] [address], [place] [phone] * GLUCOSE - POINT OF CARE (01/04/2022 12:39 AM CDT) Glucose WB/POC 94 70 - 115 mg/dL 01/04/2022 12:43 AM CDT [facility] Specimen Type Cap Fingerstick 2021 12:43 AM CDT [facility] Blood BLOOD SPECIMEN / Unknown 01/04/2022 12:39 AM CDT 01/04/2022 12:43 AM CDT Humberto Payan MD LAB - POINT OF CARE ORDERABLES Performing Organization Address City/[facility]/ZIP Co de Phone Number [address] [address], [place] [phone] * (ABNORMAL) GLUCOSE - POINT OF CARE (01/03/2022 8:07 PM CDT) Glucose WB/POC 135(H) 70 - 115 mg/dL 01/03/2022 8:12 PM CDT [facility] Specimen Type Cap Fingerstick 2021 8:12 PM CDT [facility] Blood BLOOD SPECIMEN / Unknown 01/03/2022 8:07 PM CDT 01/03/2022 8:12 PM CDT Humberto Payan MD LAB - POINT OF CARE ORDERABLES [address] [address], [place] [phone] * (ABNORMAL) GLUCOSE - POINT OF CARE (01/03/2022 5:40 PM CDT) Glucose WB/POC 119(H) 70 - 115 mg/dL 01/03/2022 5:41 PM CDT [facility] Specimen Type Cap Fingerstick 2021 5:41 PM CDT [facility] Blood BLOOD SPECIMEN / Unknown 01/03/2022 5:40 PM CDT 01/03/2022 5:41 PM CDT Juan Diego Garcia MD LAB - POINT OF CARE ORDERABLES [facility] [address] [place] [address], [place] [phone] * GLUCOSE - POINT OF CARE (01/03/2022 10:35 AM CDT) Glucose WB/POC 111 70 - 115 mg/dL 01/03/2022 10:40 AM CDT [facility] Specimen Type Cap Fingerstick 2021 10:40 AM CDT [facility] Blood BLOOD SPECIMEN / Unknown 01/03/2022 10:35 AM CDT 01/03/2022 10:40 AM CDT Juan Diego Garcia MD LAB - POINT OF CARE ORDERABLES [address] [address], [place] [phone] * GLUCOSE - POINT OF CARE (01/03/2022 7:27 AM CDT) Glucose WB/POC 113 70 - 115 mg/dL 01/03/2022 7:30 AM CDT [facility] Specimen Type Cap Fingerstick 2021 7:30 AM CDT [facility] Blood BLOOD SPECIMEN / Unknown 01/03/2022 7:27 AM CDT 01/03/2022 7:30 AM CDT Juan Diego Garcia MD LAB - POINT OF CARE ORDERABLES [facility] [address] [place] [address], [place] [phone] * (ABNORMAL) PHOSPHORUS BLOOD (01/03/2022 3:38 AM CDT) [facility] Phosphorus 2.7(L) 2.8 - 5.1 mg/dL 01/03/2022 4:13 AM CDT [facility] Blood BLOOD SPECIMEN / Unknown Venipuncture / Unknown 01/03/2022 3:38 AM CDT 01/03/2022 3:46 AM CDT Sean Raymundo DO LAB - CHEMISTRY MARSHAL GATITO Performing Organization Address [facility]/ZIP Co de Phone Number [address] [address], [facility] [phone] * MAGNESIUM BLOOD (01/03/2022 3:38 AM CDT) [facility] Magnesium 2.0 1.6 - 2.6 mg/dL 01/03/2022 4:13 AM CDT [facility] Blood BLOOD SPECIMEN / Unknown Venipuncture / Unknown 01/03/2022 3:38 AM CDT 01/03/2022 3:46 AM CDT Sean Raymundo DO LAB - CHEMISTRY LUCIByron GATITO Performing Organization Address [facility]/ZIP Co de Phone Number [address] [address], [facility] [phone] * (ABNORMAL) BASIC METABOLIC PANEL (CALCIUM TOTAL) (01/03/2022 3:38 AM CDT) [facility] BUN 22 7 - 26 mg/dL 01/03/2022 4:13 AM [facility] Creatinine 0.64(L) 0.71 - 1.16 mg/dL 01/03/2022 4:13 AM [facility] Sodium 146(H) 136 - 145 mmol/L 01/03/2022 4:13 AM [facility] Potassium 3.9 3.5 - 4.5 mmol/L 01/03/2022 4:13 AM [facility] Chloride 107 98 - 107 mmol/L 01/03/2022 4:13 AM [facility] CO2 28 22 - 29 mmol/L 01/03/2022 4:13 AM [facility] Glucose 100 70 - 115 mg/dL 01/03/2022 4:13 AM [facility] Calcium 8.7 8.4 - 10.2 mg/dL 01/03/2022 4:13 AM [facility] Anion Gap 15 8 - 18 01/03/2022 4:13 AM [facility] BUN/Creatinine Ratio 34(H) 7 - 23 01/03/2022 4:13 AM [facility] Osmolality Calculated 305(H) 270 - 300 mOsm/kg 01/03/2022 4:13 AM [facility] eGFR by CKD-EPI >90 >=90 mL/min/1.7 3 m2 01/03/2022 4:13 AM [facility] Blood BLOOD SPECIMEN / Unknown Venipuncture / Unknown 01/03/2022 3:38 AM CDT 01/03/2022 3:46 AM T Sean Raymundo DO LAB - CHEMISTRY MARSHAL MEDEROS [facility] Organization Address City/State/ZIP Co de Phone Number [facility] [address] [place] [id number], [facility] [phone] * (ABNORMAL) CBC W AUTO DIFFERENTIAL (01/03/2022 3:38 AM CDT) WBC 8.9 3.5 - 10.5 10? 3 /uL 01/03/2022 3:54 AM [facility] RBC 4.26(L) 4.30 - 5.70 10? 6 /uL 01/03/2022 3:54 AM [facility] Hemoglobin 13.5 12.0 - 17.6 g/dL 01/03/2022 3:54 AM [facility] Hematocrit 40.0 35.2 - 51.7 % 01/03/2022 3:54 AM [facility] MCV 93.9 80.7 - 98.3 fL 01/03/2022 3:54 AM [facility] MCH 31.7 26.7 - 34.0 pg 01/03/2022 3:54 AM [facility] MCHC 33.8 30.8 - 35.9 g/dL 01/03/2022 3:54 AM [facility] Platelet Count 127(L) 150 - 400 10? 3 /uL 01/03/2022 3:54 AM [facility] RDW-SD 41.8 36.0 - 50.0 fL 01/03/2022 3:54 AM [facility] RDW-CV 12.0 11.2 - 14.8 % 01/03/2022 3:54 AM [facility] MPV 12.6 9.4 - 12.9 fL 01/03/2022 3:54 AM [facility] nRBC Absolute 0.00 0 10? 3 /uL 01/03/2022 3:54 AM [facility] nRBC Auto 0.0 0 /100 WBC 01/03/2022 3:54 AM [facility] Neutrophils % 59.3 35.0 - 70.0 % 01/03/2022 3:54 AM [facility] Lymphocytes % 30.2 20.0 - 43.0 % 01/03/2022 3:54 AM [facility] Monocytes % 9.7 5.0 - 13.0 % 01/03/2022 3:54 AM [facility] Eosinophils % 0.1 0.0 - 6.0 % 01/03/2022 3:54 AM [facility] Basophil % 0.1 0.0 - 2.0 % 01/03/2022 3:54 AM [facility] Neutrophils Absolute 5.26 1.60 - 7.00 10? 3 /uL 01/03/2022 3:54 AM [facility] Lymphocyte Absolute 2.68 1.10 - 3.90 10? 3 /uL 01/03/2022 3:54 AM [facility] Monocytes Absolute 0.86 0.26 - 1.07 10? 3 /uL 01/03/2022 3:54 AM [facility] Eosinophils Absolute 0.01 0.00 - 0.47 10? 3 /uL 01/03/2022 3:54 AM [facility] Basophils Absolute 0.01 0.00 - 0.08 10? 3 /uL 01/03/2022 3:54 AM CDT [facility] Immature Granulocytes % 0.6 0.0 - 1.0 % 01/03/2022 3:54 AM CDT [facility] Immature Granulocytes Absolute 0.05 01/03/2022 3:54 AM CDT [facility] Blood BLOOD SPECIMEN / Unknown Venipuncture / Unknown 01/03/2022 3:38 AM CDT 01/03/2022 3:47 AM CDT Sean Raymundo DO LAB - HEMATOLOGY ORD ERABLES [facility] [address] [place] [address], [place] [phone] * GLUCOSE - POINT OF CARE (01/02/2022 11:34 PM CDT) Glucose WB/POC 114 70 - 115 mg/dL 01/02/2022 11:39 PM CDT [facility] Specimen Type Cap Fingerstick 2021 11:39 PM CDT [facility] Blood BLOOD SPECIMEN / Unknown 01/02/2022 11:34 PM CDT 01/02/2022 11:39 PM CDT Juan Diego Garcia MD LAB - POINT OF CARE ORDERABLES Performing Organization Address City/[facility]/ZIP Co de Phone Number [facility] [address] [place] [address], [place] [phone] * GLUCOSE - POINT OF CARE (01/02/2022 7:39 PM CDT) Glucose WB/POC 108 70 - 115 mg/dL 01/02/2022 7:43 PM CDT [facility] Specimen Type Cap Fingerstick 2021 7:43 PM CDT [facility] Blood BLOOD SPECIMEN / Unknown 01/02/2022 7:39 PM CDT 01/02/2022 7:43 PM CDT Juan Diego Garcia MD LAB - POINT OF CARE ORDERABLES [facility] [address] [place] [address], [place] [phone] * GLUCOSE - POINT OF CARE (01/02/2022 4:00 PM CDT) Glucose WB/POC 99 70 - 115 mg/dL 01/02/2022 4:04 PM CDT [facility] Specimen Type Cap Fingerstick 2021 4:04 PM CDT [facility] Blood BLOOD SPECIMEN / Unknown 01/02/2022 4:00 PM CDT 01/02/2022 4:04 PM CDT Juan Diego Garcia MD LAB - POINT OF CARE ORDERABLES Performing Organization Address City/[facility]/ZIP Co de Phone Number [address] [address], [place] [phone] * GLUCOSE - POINT OF CARE (01/02/2022 11:16 AM CDT) Glucose WB/POC 105 70 - 115 mg/dL 01/02/2022 11:17 AM CDT [facility] Specimen Type Cap Fingerstick 2021 11:17 AM CDT [facility] Blood BLOOD SPECIMEN / Unknown 01/02/2022 11:16 AM CDT 01/02/2022 11:17 AM CDT Juan Diego Garcia MD LAB - POINT OF CARE ORDERABLES [address] [address], [place] [phone] * (ABNORMAL) GLUCOSE - POINT OF CARE (01/02/2022 7:44 AM CDT) Glucose WB/POC 134(H) 70 - 115 mg/dL 01/02/2022 7:49 AM CDT [facility] Specimen Type Cap Fingerstick 2021 7:49 AM CDT [facility] Blood BLOOD SPECIMEN / Unknown 01/02/2022 7:44 AM CDT 01/02/2022 7:49 AM CDT Lesley Vargas MD LAB - POINT OF CARE ORDERABLES Performing Organization Address [facility] Co de Phone Number [address] [address], [facility] [phone] * (ABNORMAL) PHOSPHORUS BLOOD (01/02/2022 3:46 AM CDT) Phosphorus 2.2(L) 2.8 - 5.1 mg/dL 01/02/2022 4:19 AM CDT [facility] Blood BLOOD SPECIMEN / Unknown Venipuncture / Unknown 01/02/2022 3:46 AM CDT 01/02/2022 3:53 AM CDT Sean Raymundo DO LAB - CHEMISTRY MARSHAL MEDEROS Performing Organization Address [facility] Co de Phone Number [address] [address], [facility] [phone] * MAGNESIUM BLOOD (01/02/2022 3:46 AM CDT) Magnesium 2.2 1.6 - 2.6 mg/dL 01/02/2022 4:19 AM CDT [facility] Blood BLOOD SPECIMEN / Unknown Venipuncture / Unknown 01/02/2022 3:46 AM CDT 01/02/2022 3:53 AM CDT Sean Raymundo DO LAB - CHEMISTRY ORDByron MEDEROS Performing Organization Address [facility] Co de Phone Number [address] [address], [facility] [phone] * (ABNORMAL) BASIC METABOLIC PANEL (CALCIUM TOTAL) (01/02/2022 3:46 AM CDT) BUN 20 7 - 26 mg/dL 01/02/2022 4:19 AM CDT [facility] Creatinine 0.71 0.71 - 1.16 mg/dL 01/02/2022 4:19 AM [facility] Sodium 145 136 - 145 mmol/L 01/02/2022 4:19 AM [facility] Potassium 4.8(H) 3.5 - 4.5 mmol/L 01/02/2022 4:19 AM [facility] Chloride 105 98 - 107 mmol/L 01/02/2022 4:19 AM [facility] CO2 29 22 - 29 mmol/L 01/02/2022 4:19 AM [facility] Glucose 150(H) 70 - 115 mg/dL 01/02/2022 4:19 AM [facility] Calcium 9.3 8.4 - 10.2 mg/dL 01/02/2022 4:19 AM [facility] Anion Gap 16 8 - 18 01/02/2022 4:19 AM [facility] BUN/Creatinine Ratio 28(H) 7 - 23 01/02/2022 4:19 AM [facility] Osmolality Calculated 305(H) 270 - 300 mOsm/kg 01/02/2022 4:19 AM [facility] eGFR by CKD-EPI >90 >=90 mL/min/1.7 3 m2 01/02/2022 4:19 AM [facility] Blood BLOOD SPECIMEN / Unknown Venipuncture / Unknown 01/02/2022 3:46 AM CDT 01/02/2022 3:53 AM CDT Sean Raymundo DO LAB - CHEMISTRY MARSHAL MEDEROS [facility] Organization Address City/State/[facility] Co de Phone Number [address] [address] [phone] * (ABNORMAL) CBC W AUTO DIFFERENTIAL (01/02/2022 3:46 AM CDT) WBC 11.7(H) 3.5 - 10.5 10? 3 /uL 01/02/2022 4:10 AM [facility] RBC 4.70 4.30 - 5.70 10? 6 /uL 01/02/2022 4:10 AM [facility] Hemoglobin 14.9 12.0 - 17.6 g/dL 01/02/2022 4:10 AM [facility] Hematocrit 44.1 35.2 - 51.7 % 01/02/2022 4:10 AM [facility] MCV 93.8 80.7 - 98.3 fL 01/02/2022 4:10 AM [facility] MCH 31.7 26.7 - 34.0 pg 01/02/2022 4:10 AM [facility] MCHC 33.8 30.8 - 35.9 g/dL 01/02/2022 4:10 AM [facility] Platelet Count 128(L) 150 - 400 10? 3 /uL 01/02/2022 4:10 AM [facility] RDW-SD 41.3 36.0 - 50.0 fL 01/02/2022 4:10 AM [facility] RDW-CV 11.9 11.2 - 14.8 % 01/02/2022 4:10 AM [facility] MPV 12.5 9.4 - 12.9 fL 01/02/2022 4:10 AM [facility] nRBC Absolute 0.00 0 10? 3 /uL 01/02/2022 4:10 AM [facility] nRBC Auto 0.0 0 /100 WBC 01/02/2022 4:10 AM [facility] Neutrophils % 78.8(H) 35.0 - 70.0 % 01/02/2022 4:10 AM [facility] Lymphocytes % 13.2(L) 20.0 - 43.0 % 01/02/2022 4:10 AM [facility] Monocytes % 7.0 5.0 - 13.0 % 01/02/2022 4:10 AM [facility] Eosinophils % 0.0 0.0 - 6.0 % 01/02/2022 4:10 AM [facility] Basophil % 0.1 0.0 - 2.0 % 01/02/2022 4:10 AM [facility] Neutrophils Absolute 9.18(H) 1.60 - 7.00 10? 3 /uL 01/02/2022 4:10 AM [facility] Lymphocyte Absolute 1.54 1.10 - 3.90 10? 3 /uL 01/02/2022 4:10 AM CDT [facility] Monocytes Absolute 0.82 0.26 - 1.07 10? 3 /uL 01/02/2022 4:10 AM CDT [facility] Eosinophils Absolute 0.00 0.00 - 0.47 10? 3 /uL 01/02/2022 4:10 AM CDT [facility] Basophils Absolute 0.01 0.00 - 0.08 10? 3 /uL 01/02/2022 4:10 AM CDT [facility] Immature Granulocytes % 0.9 0.0 - 1.0 % 01/02/2022 4:10 AM T [facility] Immature Granulocytes Absolute 0.11 01/02/2022 4:10 AM CDT [facility] Blood BLOOD SPECIMEN / Unknown Venipuncture / Unknown 01/02/2022 3:46 AM CDT 01/02/2022 3:53 AM CDT Sean Raymundo DO LAB - HEMATOLOGY ORD ERABLES [facility] [address] [place] [address], [facility] [phone] * (ABNORMAL) PHOSPHORUS BLOOD (01/01/2022 3:49 AM CDT) Phosphorus 2.6(L) 2.8 - 5.1 mg/dL 01/01/2022 4:22 AM CDT [facility] Blood BLOOD SPECIMEN / Unknown Venipuncture / Unknown 01/01/2022 3:49 AM CDT 01/01/2022 3:53 AM CDT Sean Raymundo DO LAB - CHEMISTRY ORDByron MEDEROS [address] [address], [facility] [phone] * MAGNESIUM BLOOD (01/01/2022 3:49 AM CDT) Magnesium 2.2 1.6 - 2.6 mg/dL 01/01/2022 4:22 AM [facility] Blood BLOOD SPECIMEN / Unknown Venipuncture / Unknown 01/01/2022 3:49 AM CDT 01/01/2022 3:53 AM CDT Sean Raymundo DO LAB - CHEMISTRY MARSHAL MEDEROS [facility] Organization Address City/[facility]/ZIP Co de Phone Number [facility] [address] [place] [address], [facility] [phone] * (ABNORMAL) BASIC METABOLIC PANEL (CALCIUM TOTAL) (01/01/2022 3:49 AM CDT) BUN 20 7 - 26 mg/dL 01/01/2022 4:22 AM [facility] Creatinine 0.79 0.71 - 1.16 mg/dL 01/01/2022 4:22 AM [facility] Sodium 143 136 - 145 mmol/L 01/01/2022 4:22 AM [facility] Potassium 4.4 3.5 - 4.5 mmol/L 01/01/2022 4:22 AM [facility] Chloride 107 98 - 107 mmol/L 01/01/2022 4:22 AM [facility] CO2 29 22 - 29 mmol/L 01/01/2022 4:22 AM [facility] Glucose 148(H) 70 - 115 mg/dL 01/01/2022 4:22 AM [facility] Calcium 8.9 8.4 - 10.2 mg/dL 01/01/2022 4:22 AM [facility] Anion Gap 11 8 - 18 01/01/2022 4:22 AM [facility] BUN/Creatinine Ratio 25(H) 7 - 23 01/01/2022 4:22 AM [facility] Osmolality Calculated 301(H) 270 - 300 mOsm/kg 01/01/2022 4:22 AM [facility] eGFR by CKD-EPI >90 >=90 mL/min/1.7 3 m2 01/01/2022 4:22 AM [facility] Blood BLOOD SPECIMEN / Unknown Venipuncture / Unknown 01/01/2022 3:49 AM CDT 01/01/2022 3:53 AM CDT Sean Raymundo DO LAB - CHEMISTRY MARSHAL MEDEROS [facility] [address] [place] [address], [facility] [phone] * (ABNORMAL) CBC W AUTO DIFFERENTIAL (01/01/2022 3:49 AM CDT) WBC 14.3(H) 3.5 - 10.5 10? 3 /uL 01/01/2022 4:07 AM [facility] RBC 4.29(L) 4.30 - 5.70 10? 6 /uL 01/01/2022 4:07 AM [facility] Hemoglobin 13.5 12.0 - 17.6 g/dL 01/01/2022 4:07 AM [facility] Hematocrit 40.9 35.2 - 51.7 % 01/01/2022 4:07 AM [facility] MCV 95.3 80.7 - 98.3 fL 01/01/2022 4:07 AM [facility] MCH 31.5 26.7 - 34.0 pg 01/01/2022 4:07 AM [facility] MCHC 33.0 30.8 - 35.9 g/dL 01/01/2022 4:07 AM [facility] Platelet Count 132(L) 150 - 400 10? 3 /uL 01/01/2022 4:07 AM [facility] RDW-SD 42.1 36.0 - 50.0 fL 01/01/2022 4:07 AM [facility] RDW-CV 11.9 11.2 - 14.8 % 01/01/2022 4:07 AM [facility] MPV 12.8 9.4 - 12.9 fL 01/01/2022 4:07 AM [facility] nRBC Absolute 0.00 0 10? 3 /uL 01/01/2022 4:07 AM [facility] nRBC Auto 0.0 0 /100 WBC 01/01/2022 4:07 AM [facility] Neutrophils % 85.8(H) 35.0 - 70.0 % 01/01/2022 4:07 AM [facility] Lymphocytes % 8.6(L) 20.0 - 43.0 % 01/01/2022 4:07 AM [facility] Monocytes % 4.8(L) 5.0 - 13.0 % 01/01/2022 4:07 AM [facility] Eosinophils % 0.0 0.0 - 6.0 % 01/01/2022 4:07 AM [facility] Basophil % 0.1 0.0 - 2.0 % 01/01/2022 4:07 AM [facility] Neutrophils Absolute 12.23(H) 1.60 - 7.00 10? 3 /uL 01/01/2022 4:07 AM [facility] Lymphocyte Absolute 1.22 1.10 - 3.90 10? 3 /uL 01/01/2022 4:07 AM [facility] Monocytes Absolute 0.69 0.26 - 1.07 10? 3 /uL 01/01/2022 4:07 AM [facility] Eosinophils Absolute 0.00 0.00 - 0.47 10? 3 /uL 01/01/2022 4:07 AM [facility] Basophils Absolute 0.01 0.00 - 0.08 10? 3 /uL 01/01/2022 4:07 AM [facility] Immature Granulocytes % 0.7 0.0 - 1.0 % 01/01/2022 4:07 AM [facility] Immature Granulocytes Absolute 0.10 01/01/2022 4:07 AM [facility] Blood BLOOD SPECIMEN / Unknown Venipuncture / Unknown 01/01/2022 3:49 AM CDT 01/01/2022 3:53 AM CDT Sean Raymundo DO LAB - HEMATOLOGY ORD ERABLES [facility] [address] [place] [address], [facility] [phone] * HEMOGLOBIN A1C (01/01/2022 3:49 AM CDT) Hemoglobin A1c 5.6 <=5.6 % 01/01/2022 9:38 AM CDT [facility] Estimated Average Glucose 114 mg/dL 01/01/2022 9:38 AM CDT [facility] Comment: HbA1c Interpretation: Normal : < 5.7% Pre-diabetes: 5.7-6.4% Diabetes: Equal to or greater than 6.5% Test results diagnostic of diabetes should be repeated for confirmation. Treatment target values recommended by ADA and other clinical organizations should be used to evaluate metabolic control in patients. Reference: [place] [employer], Standards of Care in Diabetes -2020 In patients 70 years and older consider HbA1c target range of 7.0-7.5% (Reference: Lukas Matamoros et al. JAMDA. 2012) The Sebia assay for the measurement of HbA1c is a National Glycohemoglobin Standardization Program (NGSP) certified method. Blood BLOOD SPECIMEN / Unknown Venipuncture / Unknown 01/01/2022 3:49 AM CDT 01/01/2022 3:53 AM CDT Lesley Vargas MD LAB - CHEMISTRY ORDE GATITO [address] [address], [place] [phone] * (ABNORMAL) GLUCOSE - POINT OF CARE (12/31/2021 11:35 PM CDT) Pathologist [facility] Glucose WB/POC 143(H) 70 - 115 mg/dL 12/31/2021 11:36 PM CDT [facility] Specimen Type Cap Fingerstick 2021 11:36 PM CDT [facility] Blood BLOOD SPECIMEN / Unknown 12/31/2021 11:35 PM CDT 12/31/2021 11:36 PM CDT Lesley Vargas MD LAB - POINT OF CARE ORDERABLES [address] [address], [place] [phone] * XR ABDOMEN KUB PORTABLE (12/31/2021 8:53 AM CDT) Anatomical Region Laterality Modality Abdomen Radiographic Cynthia ging 12/31/2021 8:58 AM CDT Narrative 12/31/2021 2:12 PM CDT PROCEDURE: ??XR ABDOMEN KUB PORTABLE, DATE/TIME OF EXAM: ??12/31/2021 8:54 AM, LOCATION ??[facility] INDICATION: R56.9: Seizure ADDITIONAL CLINICAL INFORMATION: Ordering Provider Reason For Exam: ??dobhoff tube placement Technologist Note: Additional: COMPARISON: KUB 12/30/2021 FINDINGS/IMPRESSION: Dobbhoff tube courses below the diaphragm with the distal tip superimposing the region of body the stomach. Report dictated by Quan Nguyễn MD (associate professor of radiology). John Thomason have personally reviewed and interpreted this examination/study. > Interpreting Provider: John Graham on 12/31/2021 2:12 PM Procedure Note John Graham MD - 12/31/2021 PROCEDURE: XR ABDOMEN KUB PORTABLE, DATE/TIME OF EXAM: 12/31/2021 8:54AM, LOCATION [facility] INDICATION: R56.9: Seizure ADDITIONAL CLINICAL INFORMATION: Ordering Provider Reason For Exam: dobhoff tube placement Technologist Note: Additional: COMPARISON: KUB 12/30/2021 FINDINGS/IMPRESSION: Dobbhoff tube courses below the diaphragm with the distal tipsuperimposing the region of body the stomach. Report dictated by Quan Nguyễn MD (associate professor of radiology). John Thomason have personally reviewed and interpreted this examination/study. > Interpreting Provider: John Graham on 12/31/2021 2:12 PM Lesley Vargas MD DIAGNOSTIC IMAGING O RDERABLES * (ABNORMAL) GLUCOSE - POINT OF CARE (12/31/2021 7:03 AM CDT) Glucose WB/POC 158(H) 70 - 115 mg/dL 12/31/2021 7:08 AM CDT [facility] Specimen Type Cap Fingerstick 2021 7:08 AM CDT [facility] Blood BLOOD SPECIMEN / Unknown 12/31/2021 7:03 AM CDT 12/31/2021 7:08 AM CDT Lesley Vargas MD LAB - POINT OF CARE ORDERABLES [address] [address], [facility] [phone] * MAGNESIUM BLOOD (12/31/2021 5:04 AM CDT) Magnesium 1.9 1.6 - 2.6 mg/dL 12/31/2021 5:47 AM [facility] Blood BLOOD SPECIMEN / Unknown Venipuncture / Unknown 12/31/2021 5:04 AM CDT 12/31/2021 5:18 AM CDT Sean Raymundo DO LAB - CHEMISTRY MARSHAL MEDEROS Performing Organization Address City/[facility]/ZIP Co de Phone Number [address] [address], [facility] [phone] * (ABNORMAL) BASIC METABOLIC PANEL (CALCIUM TOTAL) (12/31/2021 5:04 AM CDT) BUN 18 7 - 26 mg/dL 12/31/2021 5:47 AM [facility] Creatinine 0.66(L) 0.71 - 1.16 mg/dL 12/31/2021 5:47 AM [facility] Sodium 143 136 - 145 mmol/L 12/31/2021 5:47 AM [facility] Potassium 4.5 3.5 - 4.5 mmol/L 12/31/2021 5:47 AM [facility] Chloride 111(H) 98 - 107 mmol/L 12/31/2021 5:47 AM [facility] CO2 20(L) 22 - 29 mmol/L 12/31/2021 5:47 AM [facility] Glucose 448(H) 70 - 115 mg/dL 12/31/2021 5:47 AM [facility] Calcium 8.0(L) 8.4 - 10.2 mg/dL 12/31/2021 5:47 AM CDT [facility] Anion Gap 17 8 - 18 12/31/2021 5:47 AM CDT [facility] BUN/Creatinine Ratio 27(H) 7 - 23 12/31/2021 5:47 AM T [facility] Osmolality Calculated 317(H) 270 - 300 mOsm/kg 12/31/2021 5:47 AM T [facility] eGFR by CKD-EPI >90 >=90 mL/min/1.7 3 m2 12/31/2021 5:47 AM T [facility] Blood BLOOD SPECIMEN / Unknown Venipuncture / Unknown 12/31/2021 5:04 AM CDT 12/31/2021 5:18 AM CDT Sean Raymundo DO LAB - CHEMISTRY MARSHAL MEDEROS Performing Organization Address City/[facility]/ZIP Co de Phone Number [address] [address], [facility] [phone] * (ABNORMAL) PHOSPHORUS BLOOD (12/31/2021 4:12 AM CDT) Phosphorus 2.6(L) 2.8 - 5.1 mg/dL 12/31/2021 4:55 AM CDT [facility] Blood BLOOD SPECIMEN / Unknown Venipuncture / Unknown 12/31/2021 4:12 AM CDT 12/31/2021 4:15 AM CDT Sean Raymundo DO LAB - CHEMISTRY MARSHAL MEDEROS [address] [address], [facility] [phone] * (ABNORMAL) CBC W AUTO DIFFERENTIAL (12/31/2021 4:12 AM CDT) WBC 14.3(H) 3.5 - 10.5 10? 3 /uL 12/31/2021 5:03 AM CDT [facility] RBC 4.20(L) 4.30 - 5.70 10? 6 /uL 12/31/2021 5:03 AM [facility] Hemoglobin 13.3 12.0 - 17.6 g/dL 12/31/2021 5:03 AM [facility] Hematocrit 40.4 35.2 - 51.7 % 12/31/2021 5:03 AM [facility] MCV 96.2 80.7 - 98.3 fL 12/31/2021 5:03 AM [facility] MCH 31.7 26.7 - 34.0 pg 12/31/2021 5:03 AM [facility] MCHC 32.9 30.8 - 35.9 g/dL 12/31/2021 5:03 AM [facility] Platelet Count 12/31/2021 5:03 AM [facility] Comment:Platelets are clumpe d on smear but appear decreased. RDW-SD 42.1 36.0 - 50.0 fL 12/31/2021 5:03 AM [facility] RDW-CV 12.1 11.2 - 14.8 % 12/31/2021 5:03 AM [facility] MPV 12/31/2021 5:03 AM [facility] Comment:Unable to Report nRBC Absolute 0.00 0 10? 3 /uL 12/31/2021 5:03 AM [facility] nRBC Auto 0.0 0 /100 WBC 12/31/2021 5:03 AM [facility] Neutrophils % 86.3(H) 35.0 - 70.0 % 12/31/2021 5:03 AM [facility] Lymphocytes % 9.1(L) 20.0 - 43.0 % 12/31/2021 5:03 AM [facility] Monocytes % 3.8(L) 5.0 - 13.0 % 12/31/2021 5:03 AM [facility] Eosinophils % 0.0 0.0 - 6.0 % 12/31/2021 5:03 AM [facility] Basophil % 0.1 0.0 - 2.0 % 12/31/2021 5:03 AM [facility] Neutrophils Absolute 12.30(H) 1.60 - 7.00 10? 3 /uL 12/31/2021 5:03 AM CDT [facility] Lymphocyte Absolute 1.30 1.10 - 3.90 10? 3 /uL 12/31/2021 5:03 AM CDT [facility] Monocytes Absolute 0.54 0.26 - 1.07 10? 3 /uL 12/31/2021 5:03 AM CDT [facility] Eosinophils Absolute 0.00 0.00 - 0.47 10? 3 /uL 12/31/2021 5:03 AM CDT [facility] Basophils Absolute 0.01 0.00 - 0.08 10? 3 /uL 12/31/2021 5:03 AM T [facility] Immature Granulocytes % 0.7 0.0 - 1.0 % 12/31/2021 5:03 AM CDT [facility] Immature Granulocytes Absolute 0.10 12/31/2021 5:03 AM T [facility] Immature Platelet Fraction 12/31/2021 5:03 AM T [facility] Comment: Unable to Report Blood BLOOD SPECIMEN / Unknown Venipuncture / Unknown 12/31/2021 4:12 AM CDT 12/31/2021 4:15 AM CDT Sean Raymundo DO LAB - HEMATOLOGY ORD ERABLES [facility] [address] [place] [address], [place] [phone] * CK BLOOD (12/31/2021 4:12 AM CDT) CK Total 77 30 - 200 U/L 12/31/2021 4:55 AM CDT [facility] Blood BLOOD SPECIMEN / Unknown Venipuncture / Unknown 12/31/2021 4:12 AM CDT 12/31/2021 4:15 AM CDT Sean Raymundo DO LAB - CHEMISTRY ORDE RABSHILPA [facility] [address] [place] [address], [place] [phone] * XR ABDOMEN KUB PORTABLE (12/30/2021 4:12 PM CDT) Anatomical Region Laterality Modality Abdomen Radiographic Cynthia ging 12/31/2021 7:36 AM CDT Narrative 12/31/2021 1:07 PM CDT PROCEDURE: ??XR ABDOMEN KUB PORTABLE, DATE/TIME OF EXAM: ??12/30/2021 4:13 PM, LOCATION ??[facility] INDICATION: R13.12: Dysphagia, oropharyngeal phase ADDITIONAL CLINICAL INFORMATION: Ordering Provider Reason For Exam: ??Dobhoff placement Technologist Note: Additional: COMPARISON: Abdominal radiograph dated 08/15/2020; Dobbhoff tube placement dated 12/30/2021 FINDINGS/IMPRESSION: Dobbhoff tube courses below the diaphragm and coils in the stomach with the distal tip superimposing the gastric fundus. Report dictated by Marianna Langley MD (associate professor of radiology). John Thomason have personally reviewed and interpreted this examination/study. > Interpreting Provider: John Graham on 12/31/2021 1:07 PM Procedure Note John Graham MD - 12/31/2021 PROCEDURE: XR ABDOMEN KUB PORTABLE, DATE/TIME OF EXAM: 12/30/2021 4:13PM, LOCATION [facility] INDICATION: R13.12: Dysphagia, oropharyngeal phase ADDITIONAL CLINICAL INFORMATION: Ordering Provider Reason For Exam: Dobhoff placement Technologist Note: Additional: COMPARISON: Abdominal radiograph dated 08/15/2020; Dobbhoff tube placement dated 12/30/2021 FINDINGS/IMPRESSION: Dobbhoff tube courses below the diaphragm and coils in the stomach withthe distal tip superimposing the gastric fundus. Report dictated by Marianna Langley MD (associate professor of radiology). John Thomason have personally reviewed and interpreted this examination/study. > Interpreting Provider: John Graham on 12/31/2021 1:07 PM Lesley Vargas MD DIAGNOSTIC IMAGING O RDERABLES * FL ORAL [place] OR D TUBE PLACEMENT (12/30/2021 2:40 PM CDT) Anatomical Region Laterality Modality Abdomen Radiographic Cynthia ging 12/31/2021 4:17 PM CDT Narrative 01/05/2022 2:49 PM CDT PROCEDURE: ??FL ORAL [place] OR D TUBE PLACEMENT, DATE/TIME OF EXAM: ??12/30/2021 2:40 PM, LOCATION ??[facility] INDICATION: G40.109: Partial symptomatic epilepsy with simple [...] pardo. Report dictated by Quan Nguyễn MD (associate professor of radiology). Bebo Thomason MD have personally reviewed and interpreted this examination/study. > Interpreting Provider: Bebo Kuo MD on 01/05/2022 2:49 PM Procedure Note Bebo Kuo MD - 01/05/2022 PROCEDURE: FL ORAL [place] OR D TUBE PLACEMENT, DATE/TIME OF EXAM: 12/30/2021 2:40 PM, LOCATION [facility] INDICATION: G40.109: Partial symptomatic epilepsy with simple [...] pardo. Report dictated by Quan Nguyễn MD (associate professor of radiology). IBebo MD have personally reviewed and interpreted this examination/study. > Interpreting Provider: Bebo Kuo MD on 01/05/2022 2:49PM Sean Raymundo DO FLUOROSCOPY ORDERABL ES * EKG 12-LEAD (12/30/2021 11:06 AM CDT) Ventricular Rate 72 BPM [facility] MUSE Atrial Rate 72 BPM [facility] MUSE P-R Interval 144 ms [facility] MUSE QRS Duration ms 98 ms [facility]USE Q-T Interval ms 380 ms [facility] [facility] MUSE QTC Calculation (Bezet) 416 ms [facility] MUSE Calculated P [place] 83 degrees [facility] MUSE Calculated R [place] 8 degrees [facility] MUSE Calculated T [place] 74 degrees [facility] MUSE Interpretation EKG NORMAL SINUS RHYTHM WITH SINUS ARRHYTHMIA 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) ABNORMAL ECG WHEN COMPARED WITH ECG OF 01-MAY-2021 22:04, NO SIGNIFICANT CHANGE WAS FOUND Confirmed by USHA OLSEN, [facility] ([id number]) on 01/02/2022 9:17:19 AM [facility] MUSE 12/30/2021 11:0 6 AM CDT 01/02/2022 9:17 AM CDT Seanjosé miguel Raymundo DO ECG ORDERABLES [facility] MUSE * XR CHEST 1VW PORTABLE (12/30/2021 6:26 AM CDT) Anatomical Region Laterality Modality Chest Radiographic Cynthia ging 12/30/2021 8:25 AM CDT Impressions 12/30/2021 12:15 PM CDT IMPRESSION: No acute cardiopulmonary abnormalities. Report dictated by Marianna Langley MD (associate professor of radiology). Bebo Thomason MD have personally reviewed and interpreted this examination/study. 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 The cardiomediastinal silhouette is normal. The visualized bony thorax is intact. 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 The cardiomediastinal silhouette is normal. The visualized bony thorax is intact. IMPRESSION: No acute cardiopulmonary abnormalities. Report dictated by Marianna Langley MD (associate professor of radiology). I, Bebo Kuo MD have personally reviewed and interpreted this examination/study. > Interpreting Provider: Bebo Kuo MD on 2:15 PM Sean Raymundo DO DIAGNOSTIC IMAGING O RDERABLES * VALPROIC ACID LEVEL (12/30/2021 1:19 AM CDT) Valproic Acid Total 97 50 - 100 ug/mL 12/30/2021 2:26 AM CDT [facility] Blood BLOOD SPECIMEN / Unknown Lab Venipuncture / Unknown 12/30/2021 1:19 AM CDT 12/30/2021 1:53 AM CDT Sean Raymundo DO LAB - CHEMISTRY MARSHAL MEDEROS [facility] [address] [place] [address], [facility] [phone] * (ABNORMAL) COMPREHENSIVE METABOLIC PANEL (12/30/2021 1:19 AM [facility]) BUN 25 7 - 26 mg/dL 12/30/2021 2:26 AM [facility] Creatinine 0.81 0.71 - 1.16 mg/dL 12/30/2021 2:26 AM [facility] Sodium 141 136 - 145 mmol/L 12/30/2021 2:26 AM [facility] Potassium 4.4 3.5 - 4.5 mmol/L 12/30/2021 2:26 AM [facility] Chloride 107 98 - 107 mmol/L 12/30/2021 2:26 AM [facility] CO2 25 22 - 29 mmol/L 12/30/2021 2:26 AM [facility] Glucose 158(H) 70 - 115 mg/dL 12/30/2021 2:26 AM [facility] Calcium 9.1 8.4 - 10.2 mg/dL 12/30/2021 2:26 AM [facility] Protein Total 6.0 6.0 - 8.3 g/dL 12/30/2021 2:26 AM [facility] Albumin 3.0(L) 3.4 - 5.0 g/dL 12/30/2021 2:26 AM [facility] Bilirubin Total 0.2 0.2 - 1.2 mg/dL 12/30/2021 2:26 AM [facility] Alkaline Phosphatase 62 40 - 150 U/L 12/30/2021 2:26 AM [facility] ALT 20 5 - 55 U/L 12/30/2021 2:26 AM [facility] AST 20 5 - 34 U/L 12/30/2021 2:26 AM [facility] Anion Gap 13 8 - 18 12/30/2021 2:26 AM [facility] BUN/Creatinine Ratio 31(H) 7 - 23 12/30/2021 2:26 AM [facility] Osmolality Calculated 300 270 - 300 mOsm/kg 12/30/2021 2:26 AM [facility] Albumin/Globulin Ratio 1.0(L) 1.1 - 2.3 12/30/2021 2:26 AM [facility] eGFR by CKD-EPI >90 >=90 mL/min/1.7 3 m2 12/30/2021 2:26 AM [facility] Blood BLOOD SPECIMEN / Unknown Lab Venipuncture / Unknown 12/30/2021 1:19 AM CDT 12/30/2021 1:53 AM CDT Sean Raymundo DO LAB - CHEMISTRY LUCIE GATITO [facility] [address] [place] [address], [facility] [phone] * (ABNORMAL) CBC W AUTO DIFFERENTIAL (12/30/2021 1:19 AM CDT) WBC 13.1(H) 3.5 - 10.5 10? 3 /uL 12/30/2021 2:00 AM [facility] RBC 4.19(L) 4.30 - 5.70 10? 6 /uL 12/30/2021 2:00 AM [facility] Hemoglobin 13.3 12.0 - 17.6 g/dL 12/30/2021 2:00 AM [facility] Hematocrit 39.5 35.2 - 51.7 % 12/30/2021 2:00 AM [facility] MCV 94.3 80.7 - 98.3 fL 12/30/2021 2:00 AM [facility] MCH 31.7 26.7 - 34.0 pg 12/30/2021 2:00 AM [facility] MCHC 33.7 30.8 - 35.9 g/dL 12/30/2021 2:00 AM [facility] Platelet Count 120(L) 150 - 400 10? 3 /uL 12/30/2021 2:00 AM [facility] RDW-SD 41.7 36.0 - 50.0 fL 12/30/2021 2:00 AM [facility] RDW-CV 12.0 11.2 - 14.8 % 12/30/2021 2:00 AM [facility] MPV 12.8 9.4 - 12.9 fL 12/30/2021 2:00 AM [facility] nRBC Absolute 0.00 0 10? 3 /uL 12/30/2021 2:00 AM [facility] nRBC Auto 0.0 0 /100 WBC 12/30/2021 2:00 AM [facility] Neutrophils % 83.1(H) 35.0 - 70.0 % 12/30/2021 2:00 AM [facility] Lymphocytes % 11.9(L) 20.0 - 43.0 % 12/30/2021 2:00 AM [facility] Monocytes % 4.3(L) 5.0 - 13.0 % 12/30/2021 2:00 AM [facility] Eosinophils % 0.0 0.0 - 6.0 % 12/30/2021 2:00 AM [facility] Basophil % 0.1 0.0 - 2.0 % 12/30/2021 2:00 AM [facility] Neutrophils Absolute 10.92(H) 1.60 - 7.00 10? 3 /uL 12/30/2021 2:00 AM [facility] Lymphocyte Absolute 1.56 1.10 - 3.90 10? 3 /uL 12/30/2021 2:00 AM [facility] Monocytes Absolute 0.57 0.26 - 1.07 10? 3 /uL 12/30/2021 2:00 AM [facility] Eosinophils Absolute 0.00 0.00 - 0.47 10? 3 /uL 12/30/2021 2:00 AM [facility] Basophils Absolute 0.01 0.00 - 0.08 10? 3 /uL 12/30/2021 2:00 AM [facility] Immature Granulocytes % 0.6 0.0 - 1.0 % 12/30/2021 2:00 AM [facility] Immature Granulocytes Absolute 0.08 12/30/2021 2:00 AM [facility] Blood BLOOD SPECIMEN / Unknown Lab Venipuncture / Unknown 12/30/2021 1:19 AM CDT 12/30/2021 1:53 AM CDT Sean Altamirano Raymundo DO LAB - HEMATOLOGY ORD ERABLES [facility] [address] [place] [address], [facility] [phone] * CT ANGIO BRAIN NECK STROKE (12/29/2021 8:04 AM CDT) Anatomical Region Laterality Modality Head [...] > Dictated by: Ami Clifford MD, PhD (associate professor of radiology). I, Saloni Lemus MD have personally reviewed [...] > Dictated by: Ami Clifford MD, PhD (associate professor of radiology). Slaoni Thomason MD have personally reviewed and interpreted this examination/study. > Interpreting Provider: Saloni Lemus MD on 12/29/2021 11:46 AM Sean Raymundo DO CT ORDERABLES * CT BRAIN STROKE (12/29/2021 7:55 AM CDT) Anatomical Region Laterality Modality Head [...] > Dictated by: Ami Clifford MD, PhD (associate professor of radiology). 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 Moderate cerebral white matter hypodensity is compatible with chronic microvascular ischemic changes. No acute loss of garber-white matter differentiation is identified. There is no [...] occipital regions compatible with an old right [employer] MA[employer] SUPER[employer] infarct. Moderate cerebralwhite matter hypodensity is compatible with chronic microvascular ischemic changes. No acute loss of garber-white matter differentiation isidentified. There is no acute [...] > Dictated by: Ami Clifford MD, PhD (associate professor of radiology). I, Saloni Lemus MD have personally reviewed and interpreted this examination/study. > Interpreting Provider: Saloni Lemus MD on 12/29/2021 11:15 AM Sean Raymundo DO CT ORDERABLES * (ABNORMAL) GLUCOSE - POINT OF CARE (12/29/2021 7:41 AM CDT) Glucose WB/POC 132(H) 70 - 115 mg/dL 12/29/2021 7:46 AM [facility] Specimen Type Cap Fingerstick 2021 7:46 AM [facility] Blood BLOOD SPECIMEN / Unknown 12/29/2021 7:41 AM CDT 12/29/2021 7:46 AM CDT Sean Raymundo DO LAB - POINT OF CARE ORDERABLES [facility] [address] [place] [address], [facility] [phone] * (ABNORMAL) COMPREHENSIVE METABOLIC PANEL (12/29/2021 7:21 AM CDT) Pathologist [facility] BUN 19 7 - 26 mg/dL 12/29/2021 7:55 AM [facility] Creatinine 0.86 0.71 - 1.16 mg/dL 12/29/2021 7:55 AM [facility] Sodium 140 136 - 145 mmol/L 12/29/2021 7:55 AM [facility] Potassium 4.6(H) 3.5 - 4.5 mmol/L 12/29/2021 7:55 AM [facility] Chloride 103 98 - 107 mmol/L 12/29/2021 7:55 AM [facility] CO2 24 22 - 29 mmol/L 12/29/2021 7:55 AM [facility] Glucose 139(H) 70 - 115 mg/dL 12/29/2021 7:55 AM [facility] Calcium 9.7 8.4 - 10.2 mg/dL 12/29/2021 7:55 AM [facility] Protein Total 7.2 6.0 - 8.3 g/dL 12/29/2021 7:55 AM [facility] Albumin 3.4 3.4 - 5.0 g/dL 12/29/2021 7:55 AM [facility] Bilirubin Total 0.4 0.2 - 1.2 mg/dL 12/29/2021 7:55 AM [facility] Alkaline Phosphatase 73 40 - 150 U/L 12/29/2021 7:55 AM [facility] ALT 27 5 - 55 U/L 12/29/2021 7:55 AM [facility] AST 25 5 - 34 U/L 12/29/2021 7:55 AM [facility] Anion Gap 18 8 - 18 12/29/2021 7:55 AM [facility] BUN/Creatinine Ratio 22 7 - 23 12/29/2021 7:55 AM [facility] Osmolality Calculated 295 270 - 300 mOsm/kg 12/29/2021 7:55 AM [facility] Albumin/Globulin Ratio 0.9(L) 1.1 - 2.3 12/29/2021 7:55 AM [facility] eGFR by CKD-EPI >90 >=90 mL/min/1.7 3 m2 12/29/2021 7:55 AM [facility] Blood BLOOD SPECIMEN / Unknown Venipuncture / Unknown 12/29/2021 7:21 AM CDT 12/29/2021 7:26 AM T Yana HUITRON LAB - CHEMISTR Y ORDERABLES [facility] [address] [place] [address], [facility] [phone] * (ABNORMAL) CBC W/O DIFFERENTIAL (12/29/2021 7:21 AM CDT) WBC 8.1 3.5 - 10.5 10? 3 /uL 12/29/2021 7:32 AM [facility] RBC 4.82 4.30 - 5.70 10? 6 /uL 12/29/2021 7:32 AM [facility] Hemoglobin 15.4 12.0 - 17.6 g/dL 12/29/2021 7:32 AM [facility] Hematocrit 44.8 35.2 - 51.7 % 12/29/2021 7:32 AM [facility] MCV 92.9 80.7 - 98.3 fL 12/29/2021 7:32 AM [facility] MCH 32.0 26.7 - 34.0 pg 12/29/2021 7:32 AM [facility] MCHC 34.4 30.8 - 35.9 g/dL 12/29/2021 7:32 AM [facility] Platelet Count 123(L) 150 - 400 10? 3 /uL 12/29/2021 7:32 AM [facility] RDW-SD 39.9 36.0 - 50.0 fL 12/29/2021 7:32 AM [facility] RDW-CV 11.8 11.2 - 14.8 % 12/29/2021 7:32 AM [facility] MPV 11.9 9.4 - 12.9 fL 12/29/2021 7:32 AM [facility] nRBC Absolute 0.00 0 10? 3 /uL 12/29/2021 7:32 AM [facility] nRBC Auto 0.0 0 /100 WBC 12/29/2021 7:32 AM [facility] Blood BLOOD SPECIMEN / Unknown Venipuncture / Unknown 12/29/2021 7:21 AM CDT 12/29/2021 7:26 AM T Yana Rm CODING CLERK-DIRECTOR OF SPECIAL EDUCATION LAB - HEMATOLO GY ORDERABLES Performing Organization Address [facility] Co de Phone Number [address] [address], [facility] [phone] * (ABNORMAL) URINALYSIS REFLEX MICROSCOPIC REFLEX CULTURE (12/28/2021 12:33 PM CDT) Color UA Yellow Straw, Yellow 12/28/2021 12:54 PM [facility] Clarity UA Clear Clear 12/28/2021 12:54 PM [facility] Specific Daisy UA 1.020 1.005 - 1.030 12/28/2021 12:54 PM [facility] pH UA 6.0 5.0 - 8.0 pH 12/28/2021 12:54 PM [facility] Protein UA Negative Negative 12/28/2021 12:54 PM CDT [facility] Glucose UA 1+(A) Negative 12/28/2021 12:54 PM CDT [facility] Ketone UA Trace(A) Negative 12/28/2021 12:54 PM CDT [facility] Bilirubin UA Negative Negative 12/28/2021 12:54 PM CDT [facility] Blood UA Negative Negative 12/28/2021 12:54 PM CDT [facility] Nitrite UA Negative Negative 12/28/2021 12:54 PM CDT [facility] Leukocyte Esterase Negative Negative 12/28/2021 12:54 PM CDT [facility] Urobilinogen UA 4.0(A) Negative mg/dL 12/28/2021 12:54 PM CDT [facility] Comment UA Microscopic not indicated. 12/28/2021 12:54 PM CDT [facility] Urine URINE SPECIMEN OBTAINED BY SINGLE CATHETERIZATION OF URINARY BLADDER / Unknown Collection / Unknown 12/28/2021 12:33 PM CDT 12/28/2021 12:39 PM CDT Narrative [facility] - 12/28/2021 12:54 PM CDT Yana HUITRON LAB - URINALYS IS ORDERABLES [address] [address], [facility] [phone] * PHOSPHORUS BLOOD (12/27/2021 1:17 AM CDT) Phosphorus 2.8 2.8 - 5.1 mg/dL 12/27/2021 3:36 AM CDT [facility] Blood BLOOD SPECIMEN / Unknown Lab Venipuncture / Unknown 12/27/2021 1:17 AM CDT 12/27/2021 3:08 AM CDT Sean Raymundo DO LAB - CHEMISTRY ORDByron MEDEROS [address] [address], [place] [phone] * MAGNESIUM BLOOD (12/27/2021 1:17 AM CDT) Magnesium 1.6 1.6 - 2.6 mg/dL 12/27/2021 3:36 AM [facility] Blood BLOOD SPECIMEN / Unknown Lab Venipuncture / Unknown 12/27/2021 1:17 AM CDT 12/27/2021 3:08 AM CDT Sean Raymundo DO LAB - CHEMISTRY MARSHAL MEDEROS [facility] [address] [place] [address], [facility] [phone] * (ABNORMAL) COMPREHENSIVE METABOLIC PANEL (12/27/2021 1:17 AM CDT) BUN 19 7 - 26 mg/dL 12/27/2021 3:36 AM [facility] Creatinine 0.89 0.71 - 1.16 mg/dL 12/27/2021 3:36 AM [facility] Sodium 141 136 - 145 mmol/L 12/27/2021 3:36 AM [facility] Potassium 4.1 3.5 - 4.5 mmol/L 12/27/2021 3:36 AM [facility] Chloride 104 98 - 107 mmol/L 12/27/2021 3:36 AM [facility] CO2 22 22 - 29 mmol/L 12/27/2021 3:36 AM [facility] Glucose 84 70 - 115 mg/dL 12/27/2021 3:36 AM [facility] Calcium 9.5 8.4 - 10.2 mg/dL 12/27/2021 3:36 AM [facility] Protein Total 6.7 6.0 - 8.3 g/dL 12/27/2021 3:36 AM [facility] Albumin 3.3(L) 3.4 - 5.0 g/dL 12/27/2021 3:36 AM [facility] Bilirubin Total 0.5 0.2 - 1.2 mg/dL 12/27/2021 3:36 AM [facility] Alkaline Phosphatase 74 40 - 150 U/L 12/27/2021 3:36 AM [facility] ALT 26 5 - 55 U/L 12/27/2021 3:36 AM [facility] AST 32 5 - 34 U/L 12/27/2021 3:36 AM [facility] Anion Gap 19(H) 8 - 18 12/27/2021 3:36 AM [facility] BUN/Creatinine Ratio 21 7 - 23 12/27/2021 3:36 AM [facility] Osmolality Calculated 293 270 - 300 mOsm/kg 12/27/2021 3:36 AM [facility] Albumin/Globulin Ratio 1.0(L) 1.1 - 2.3 12/27/2021 3:36 AM [facility] eGFR by CKD-EPI >90 >=90 mL/min/1.7 3 m2 12/27/2021 3:36 AM [facility] Blood BLOOD SPECIMEN / Unknown Lab Venipuncture / Unknown 12/27/2021 1:17 AM CDT 12/27/2021 3:08 AM CDT Sean Raymundo DO LAB - CHEMISTRY MARSHAL MEDEROS [facility] Organization Address City/State/ZIP Co de Phone Number [address] [address], [facility] [phone] * (ABNORMAL) CBC W/O DIFFERENTIAL (12/27/2021 1:17 AM CDT) WBC 6.7 3.5 - 10.5 10? 3 /uL 12/27/2021 3:22 AM [facility] RBC 4.77 4.30 - 5.70 10? 6 /uL 12/27/2021 3:22 AM [facility] Hemoglobin 15.1 12.0 - 17.6 g/dL 12/27/2021 3:22 AM [facility] Hematocrit 44.9 35.2 - 51.7 % 12/27/2021 3:22 AM [facility] MCV 94.1 80.7 - 98.3 fL 12/27/2021 3:22 AM [facility] MCH 31.7 26.7 - 34.0 pg 12/27/2021 3:22 AM [facility] MCHC 33.6 30.8 - 35.9 g/dL 12/27/2021 3:22 AM [facility] Platelet Count 100(L) 150 - 400 10? 3 /uL 12/27/2021 3:22 AM [facility] RDW-SD 39.9 36.0 - 50.0 fL 12/27/2021 3:22 AM [facility] RDW-CV 11.6 11.2 - 14.8 % 12/27/2021 3:22 AM [facility] MPV 12.9 9.4 - 12.9 fL 12/27/2021 3:22 AM [facility] nRBC Absolute 0.00 0 10? 3 /uL 12/27/2021 3:22 AM [facility] nRBC Auto 0.0 0 /100 WBC 12/27/2021 3:22 AM [facility] Blood BLOOD SPECIMEN / Unknown Lab Venipuncture / Unknown 12/27/2021 1:17 AM CDT 12/27/2021 3:08 AM CDT Sean Raymundo DO LAB - HEMATOLOGY ORD ERABLES [address] [address], [facility] [phone] * VALPROIC ACID LEVEL (12/21/2021 12:45 PM CDT) Valproic Acid Total 84 50 - 100 ug/mL 12/21/2021 1:33 PM CDT [facility] Blood BLOOD SPECIMEN / Unknown Lab Venipuncture / Unknown 12/21/2021 12:45 PM CDT 12/21/2021 12:59 PM CDT Yana Rm CODING CLERK-DIRECTOR OF SPECIAL EDUCATION LAB - CHEMISTR Y ORDERABLES [address] [address] [phone] * (ABNORMAL) LEVETIRACETAM LEVEL (12/21/2021 12:45 PM CDT) Levetiracetam 66(H) 10 - 40 ug/mL 12/22/2021 5:07 PM CDT [facility] [employer] ([facility]) Comment: INTERPRETIVE INFORMATION: Keppra (Levetiracetam) Therapeutic Range: ??10-40 ug/mL ?Toxic: ??Not well Established Pharmacokinetics of levetiracetam are affected by renal function. Adverse effects may include somnolence, weakness, headache and vomiting. This levetiracetam (Keppra) immunoassay uses the [employer] reagents, which has known cross-reactivity with the drug brivaracetam (Briviact) and may report inaccurate results. Patients transitioning from levetiracetam to brivaracetam or those who are using both medications should not monitor drug concentrations with the [facility] [employer] assay. These patients should be monitored using a validated chromatographic methodology that distinguishes between drugs to determine drug concentrations. Performed By: [facility] [address] [place] [address] Piano Mechanic: Power Milian MD, PhD Blood BLOOD SPECIMEN / Unknown Lab Venipuncture / Unknown 12/21/2021 12:45 PM CDT 12/21/2021 12:58 PM CDT Yana Rm CODING CLERK-DIRECTOR OF SPECIAL EDUCATION LAB - THERAPEU TIC DRUG MONITORING ORDERABLES [facility] [employer]) [address] * LACOSAMIDE (12/21/2021 12:45 PM CDT) Lacosamide 10.0 1.0 - 10.0 ug/mL 12/24/2021 7:51 PM CDT [facility] [employer] ([facility]) Comment: INTERPRETIVE INFORMATION: Lacosamide, Serum or Plasma [...] developed and its performance characteristics determined by [facility]. It has not been cleared or approved by the [place] Food and Drug Administration. This test was performed in a CLIA-certified laboratory and is intended for clinical purposes. Performed By: [facility] [address] [place] [address] Piano Mechanic: Power Milian MD, PhD Blood BLOOD SPECIMEN / Unknown Lab Venipuncture / Unknown 12/21/2021 12:45 PM CDT 12/21/2021 12:58 PM CDT Yana Rm CODING CLERK-DIRECTOR OF SPECIAL EDUCATION LAB - CHEMISTR Y ORDERABLES Performing Organization Address City/State/[facility] Co de Phone Number [facility] ([facility]) [address] [place], [place] [address] * (ABNORMAL) COMPREHENSIVE METABOLIC PANEL (12/21/2021 12:45 PM CDT) BUN 15 7 - 26 mg/dL 12/21/2021 1:33 PM [facility] Creatinine 1.00 0.71 - 1.16 mg/dL 12/21/2021 1:33 PM [facility] Sodium 144 136 - 145 mmol/L 12/21/2021 1:33 PM [facility] Potassium 5.4(H) 3.5 - 4.5 mmol/L 12/21/2021 1:33 PM [facility] Chloride 106 98 - 107 mmol/L 12/21/2021 1:33 PM [facility] CO2 29 22 - 29 mmol/L 12/21/2021 1:33 PM [facility] Glucose 98 70 - 115 mg/dL 12/21/2021 1:33 PM [facility] Calcium 9.7 8.4 - 10.2 mg/dL 12/21/2021 1:33 PM [facility] Protein Total 6.8 6.0 - 8.3 g/dL 12/21/2021 1:33 PM [facility] Albumin 3.6 3.4 - 5.0 g/dL 12/21/2021 1:33 PM [facility] Bilirubin Total 0.4 0.2 - 1.2 mg/dL 12/21/2021 1:33 PM [facility] Alkaline Phosphatase 71 40 - 150 U/L 12/21/2021 1:33 PM [facility] ALT 14 5 - 55 U/L 12/21/2021 1:33 PM [facility] AST 22 5 - 34 U/L 12/21/2021 1:33 PM [facility] Anion Gap 14 8 - 18 12/21/2021 1:33 PM [facility] BUN/Creatinine Ratio 15 7 - 23 12/21/2021 1:33 PM [facility] Osmolality Calculated 299 270 - 300 mOsm/kg 12/21/2021 1:33 PM [facility] Albumin/Globulin Ratio 1.1 1.1 - 2.3 12/21/2021 1:33 PM [facility] eGFR by CKD-EPI 86(L) >=90 mL/min/1.7 3 m2 12/21/2021 1:33 PM [facility] Blood BLOOD SPECIMEN / Unknown Lab Venipuncture / Unknown 12/21/2021 12:45 PM CDT 12/21/2021 12:59 PM CDT Yana Rm CODING CLERK-DIRECTOR OF SPECIAL EDUCATION LAB - CHEMISTR Y ORDERABLES [facility] [address] [place] [id number], [facility] [phone] * (ABNORMAL) CBC W AUTO DIFFERENTIAL (12/21/2021 12:45 PM CDT) WBC 6.6 3.5 - 10.5 10? 3 /uL 12/21/2021 1:09 PM [facility] RBC 4.40 4.30 - 5.70 10? 6 /uL 12/21/2021 1:09 [facility] Hemoglobin 14.1 12.0 - 17.6 g/dL 12/21/2021 1:09 PM [facility] Hematocrit 43.1 35.2 - 51.7 % 12/21/2021 1:09 [facility] MCV 98.0 80.7 - 98.3 fL 12/21/2021 1:09 PM [facility] MCH 32.0 26.7 - 34.0 pg 12/21/2021 1:09 [facility] MCHC 32.7 30.8 - 35.9 g/dL 12/21/2021 1:09 PM [facility] Platelet Count 126(L) 150 - 400 10? 3 /uL 12/21/2021 1:09 PM [facility] RDW-SD 44.0 36.0 - 50.0 fL 12/21/2021 1:09 PM [facility] RDW-CV 12.1 11.2 - 14.8 % 12/21/2021 1:09 [facility] MPV 11.7 9.4 - 12.9 fL 12/21/2021 1:09 PM [facility] nRBC Absolute 0.00 0 10? 3 /uL 12/21/2021 1:09 PM [facility] nRBC Auto 0.0 0 /100 WBC 12/21/2021 1:09 PM [facility] Neutrophils % 38.3 35.0 - 70.0 % 12/21/2021 1:09 PM [facility] Lymphocytes % 47.5(H) 20.0 - 43.0 % 12/21/2021 1:09 PM [facility] Monocytes % 7.8 5.0 - 13.0 % 12/21/2021 1:09 PM [facility] Eosinophils % 5.6 0.0 - 6.0 % 12/21/2021 1:09 PM [facility] Basophil % 0.5 0.0 - 2.0 % 12/21/2021 1:09 PM [facility] Neutrophils Absolute 2.51 1.60 - 7.00 10? 3 /uL 12/21/2021 1:09 PM [facility] Lymphocyte Absolute 3.11 1.10 - 3.90 10? 3 /uL 12/21/2021 1:09 PM [facility] Monocytes Absolute 0.51 0.26 - 1.07 10? 3 /uL 12/21/2021 1:09 PM [facility] Eosinophils Absolute 0.37 0.00 - 0.47 10? 3 /uL 12/21/2021 1:09 PM [facility] Basophils Absolute 0.03 0.00 - 0.08 10? 3 /uL 12/21/2021 1:09 PM [facility] Immature Granulocytes % 0.3 0.0 - 1.0 % 12/21/2021 1:09 PM [facility] Immature Granulocytes Absolute 0.02 12/21/2021 1:09 PM [facility] Immature Platelet Fraction 8.2(H) 1.1 - 6.2 % 12/21/2021 1:09 PM [facility] Blood BLOOD SPECIMEN / Unknown Lab Venipuncture / Unknown 12/21/2021 12:45 PM CDT 12/21/2021 12:59 PM CDT Yana Rm CODING CLERK-DIRECTOR OF SPECIAL EDUCATION LAB - [facility] GY ORDERABLES Performing Organization Address City/State/[facility] Co de Phone Number [facility] [address] [place] [address], [facility] [phone] documented in this encounter Visit Diagnoses Diagnosis Seizure (HCC)- Primary Other convulsions Seizure (HCC) Other convulsions Seizures (HCC) Other convulsions Weakness Other malaise and fatigue Unspecified sequelae of other cerebrovascular disease Dysphagia, oropharyngeal phase 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, not intractable, 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, intractable, with status epilepticus (HCC) Epilepsy, unspecified, not intractable, without status epilepticus (HCC) Alzheimer's disease with early onset (HCC) Alzheimer's disease Status epilepticus (HCC) Epileptic grand mal status Difficulty in walking, not elsewhere classified Acute encephalopathy Encephalopathy, unspecified History of CVA (cerebrovascular accident) Transient ischemic attack (TIA), and cerebral infarction without residual deficits 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 $ Given 12/25/2021 5:02 AM CDT 3 mL $ Given 12/24/2021 8:10 PM CDT 3 mL $ Given 12/24/2021 5:41 PM CDT 3 mL 0.9% NaCl injection 3 mL 3 mL, Intracatheter, EVERY 8 HOURS, First dose on Tue12/28/21 at 1400, Until Discontinued $ Given 01/07/2022 1:58 PM CDT 3 mL $ Given 01/07/2022 6:22 AM CDT 3 mL $ Given 01/06/2022 10:08 PM CDT 3 mL acetaminophen (Tylenol) tablet 500 mg 500 mg, Oral, EVERY 6 HOURS PRN, Mild Pain, Starting on Tue12/21/21 at 1227, Until Tue12/30/21 at 0544, Patient preference for lesser PRN pain meds may be honored when the patient requests a less strong medication, a lower dose, or a less intrusive route of administration when the lesser drug, dose and route have been ordered for the patient. This patient request must be documented in the MAR. $ Given 12/28/2021 8:26 PM CDT 500 m g $ Given 12/27/2021 10:16 AM CDT 500 mg $ Given 12/26/2021 8:26 AM CDT 500 mg amLODIPine (Norvasc) tablet 5 mg 5 mg, Oral, AT BEDTIME, First dose on Tue12/21/21 at 2100, Until Discontinued $ Given 12/28/2021 8:26 PM CDT 5 mg $ Given 12/27/2021 8:03 PM CDT 5 mg $ Given 12/26/2021 8:23 PM CDT 5 mg amLODIPine (Norvasc) tablet 5 mg 5 mg, Enteral Tube, AT BEDTIME, First dose (after last modification) on Marian 12/31/21 at 2100, Until Discontinued $ Given 01/02/2022 8:27 PM CDT 5 mg NG Tube $ Given 01/01/2022 8:03 PM CDT 5 mg NG Tube $ Given 12/31/2021 8:17 PM CDT 5 mg NG Tube amLODIPine (Norvasc) tablet 5 mg 5 mg, Oral, AT BEDTIME, First dose (after last modification) on Tue01/03/22 at 2100, Until Discontinued $ Given 01/06/2022 10:08 PM CDT 5 mg $ Given 01/05/2022 9:22 PM CDT 5 mg $ Given 01/04/2022 8:05 PM CDT 5 mg aspirin chew tablet 81 mg 81 mg, Oral, DAILY, First dose on Tue12/22/21 at 0900, Until Discontinued $ Given 12/28/2021 10:41 AM CDT 81 mg $ Given 12/27/2021 9:18 AM CDT 81 mg $ Given 12/26/2021 8:18 AM CDT 81 mg aspirin chew tablet 81 mg 81 mg, Enteral Tube, DAILY, First dose (after last modification) on Tue01/01/22 at 0900, Until Discontinued $ Given 01/03/2022 8:03 AM CDT 81 mg NG Tube $ Given 01/02/2022 7:58 AM CDT 81 mg NG Tube $ Given 01/01/2022 8:53 AM CDT 81 mg NG Tube aspirin chew tablet 81 mg 81 mg, Oral, DAILY, First dose (after last modification) on Tue01/04/22 at 0900, Until Discontinued $ Given 01/07/2022 9:04 AM CDT 81 mg $ Given 01/06/2022 9:29 AM CDT 81 mg $ Given 01/05/2022 9:43 AM CDT 81 mg atorvastatin (Lipitor) tablet 40 mg 40 mg, Oral, DAILY, First dose on Tue12/22/21 at 0900, Until Discontinued $ Given 12/28/2021 10:42 AM CDT 40 mg $ Given 12/27/2021 9:18 AM CDT 40 mg $ Given 12/26/2021 8:19 AM CDT 40 mg atorvastatin (Lipitor) tablet 40 mg 40 mg, Enteral Tube, DAILY, First dose (after last modification) on Tue01/01/22 at 0900, Until Discontinued $ Given 01/03/2022 8:04 AM CDT 40 mg NG Tube $ Given 01/02/2022 7:58 AM CDT 40 mg NG Tube $ Given 01/01/2022 8:53 AM CDT 40 mg NG Tube atorvastatin (Lipitor) tablet 40 mg 40 mg, Oral, DAILY, First dose (after last modification) on Tue01/04/22 at 0900, Until Discontinued $ Given 01/07/2022 9:03 AM CDT 40 mg $ Given 01/06/2022 9:30 AM CDT 40 mg $ Given 01/05/2022 9:44 AM CDT 40 mg brivaracetam (Briviact) injection 200 mg 200 mg, Intravenous, Once, 1 dose, On Tue12/29/21 at 1015 $ Given 12/29/2021 11:00 AM CDT 200 mg brivaracetam (Briviact) tablet 100 mg 100 mg, Oral, 2 TIMES DAILY, First dose on Tue12/28/21 at 0945, Until Discontinued, Swallow whole. Do not crush or chew. $ Given 12/28/2021 8:26 PM CDT 100 mg $ Given 12/28/2021 11:00 AM CDT 100 mg cenobamate (Xcopri) tablet 12.5 mg 12.5 mg, Oral, AT BEDTIME, First dose (after last modification) on Tue12/23/21 at 2100, Until Discontinued $ Given 12/26/2021 8:23 PM CDT 12.5 mg $ Given 12/25/2021 8:03 PM CDT 12.5 mg $ Given 12/24/2021 8:12 PM CDT 12.5 mg cloBAZam (Onfi) tablet 10 mg 10 mg, Enteral Tube, 2 TIMES DAILY, First dose (after last modification) on Tue12/31/21 at 1130, Until Discontinued, HOLD for oversedation $ Given 01/03/2022 8:03 AM CDT 10 mg NG Tube $ Given 01/02/2022 8:27 PM CDT 10 mg NG Tube $ Given 01/02/2022 7:58 AM CDT 10 mg NG Tube cloBAZam (Onfi) tablet 10 mg 10 mg, Enteral Tube, ONCE, 1 dose, On Tue01/01/22 at 1530 $ Given 01/01/2022 4:30 PM CDT 10 mg NG Tube cloBAZam (Onfi) tablet 10 mg 10 mg, Oral, 2 TIMES DAILY, First dose (after last modification) on Tue01/03/22 at 2100, Until Discontinued, HOLD for oversedation $ Given 01/07/2022 9:04 AM CDT 10 mg $ Given 01/06/2022 10:06 PM CDT 10 mg $ Given 01/06/2022 9:30 AM CDT 10 mg dextrose 5 % and lactated ringers infusion at 75 mL/hr, Intravenous, CONTINUOUS, Starting on Tue12/30/21 at 0115, Until Tue12/30/21 at 1545 $ New Bag/Syringe 12/30/2021 3:00 PM CDT 75 mL/hr $ New Bag/Syringe 12/30/2021 12:45 AM CDT 75 mL /hr dextrose 5 % and lactated ringers infusion at 75 mL/hr, Intravenous, CONTINUOUS, Starting on Tue12/30/21 at 2215, Until Tue12/31/21 at 0657 Current Rate 12/31/2021 5:00 AM CDT 75 mL/hr Rate Change 12/31/2021 4:15 AM CDT 75 mL/hr Current Rate 12/31/2021 12:00 AM CDT 75 mL/hr dextrose 5 % and lactated ringers infusion at 75 mL/hr, Intravenous, CONTINUOUS, Starting on Tue12/31/21 at 0845, Until Tue12/31/21 at 1227 *Current Bag - New Order 12/31/2021 8:56 AM CDT 75 mL/hr dextrose IV 12.5 g 12.5 g, Intravenous, PRN, Other, Bedside Glucose less than 70 mg/dL -If NOT able to eat and/or NPO and with IV Access, Starting on Tue12/31/21 at 0645, Until Marian 01/07/22 at 1951, If NOT able to eat and/or NPO [...] mg/dl. NOTIFY PROVIDER OF HYPOGLYCEMIC EVENT. dextrose IV 25 g 25 g, Intravenous, PRN, Other, Bedside Glucose less than 70 mg/dL -If NOT able to eat and/or NPO and with IV Access, Starting on Marian 12/31/21 at 0645, Until Marian 01/07/22 at 1951, If NOT able to eat and/or NPO [...] 80 mg/dl. NOTIFY PROVIDER OF HYPOGLYCEMIC EVENT. divalproex DR (Depakote) tablet 1,000 mg 1,000 mg, Oral, 2 TIMES DAILY, First dose on Tue01/04/22 at 1200, Until Discontinued, Do not crush, chew, or cut in half. $ Given 01/07/2022 9:03 AM CDT 1,000 mg $ Given 01/06/2022 10:06 PM CDT 1,000 mg $ Given 01/06/2022 9:29 AM CDT 1,[address] (Depakote) tablet 250 mg 250 mg, Oral, 2 TIMES DAILY, First dose on Tue12/21/21 at 2100, Until Discontinued, To be given with a 500 mg tablet to = 750 mg total Do not crush, chew, or cut in half. $ Given 12/28/2021 8:26 PM CDT 250 mg $ Given 12/28/2021 11:00 AM CDT 250 mg $ Given 12/27/2021 8:03 PM CDT [address] (Depakote) tablet 500 mg 500 mg, Oral, 2 TIMES DAILY, First dose on Tue12/21/21 at 2100, Until Discontinued, To be given with a 250 mg tablet to = 750 mg total Do not crush, chew, or cut in half. $ Given 12/28/2021 8:26 PM CDT 500 mg $ Given 12/28/2021 10:42 AM CDT 500 mg $ Given 12/27/2021 8:04 PM CDT 500 mg enoxaparin (Lovenox) injection 40 mg 40 mg, Subcutaneous, DAILY, First dose on Tue12/21/21 at 1300, Until Discontinued, (for prefilled syringes) do not expel air bubble from the syringe prior to the injection Remind Patient to not rub injection site. Could cause hematoma. $ Given 01/07/2022 9:06 AM CDT 40 mg Abd Right Lower Quad rant $ Given 01/06/2022 9:27 AM CDT 40 mg Ab d Right Lower Quadrant $ Given 01/05/2022 9:45 AM CDT 40 mg Ab dominal Tissue folic acid (Folvite) tablet 1 mg 1 mg, Oral, DAILY, First dose on Tue01/04/22 at 0930, Until Discontinued $ Given 01/07/2022 9:05 AM CDT 1 mg $ Given 01/06/2022 9:29 AM CDT 1 mg $ Given 01/05/2022 9:43 AM CDT 1 mg glucagon (Glucagen) injection 1 mg 1 mg, Intramuscular, PRN, Bedside Glucose less than 70 mg/dL - If NOT able to eat and/or NPO and withOUT IV Access, Starting on Tue12/31/21 at 0645, Until Tue01/07/22 at 1950, If NOT able to eat and/or NPO and NO IV Access: For Bedside glucose 54-69 mg/dL Give 1 mg IM or SQ For Bedside Glucose LESS than 54 mg/dl verify with a second bedside glucose (from a different site) and Give 1 mg IM or SQ Re-check and Re-treat blood glucose EVERY [...] does not have swallowing difficulties, Starting on Tue12/31/21 at 0645, Until Tue01/07/22 at 1950, If able to eat and can swallow [...] pt is symptomatic, do not delay treatment Consider confirming the glucose with a STAT laboratory test Give [...] 80 mg/dl. NOTIFY PROVIDER OF HYPOGLYCEMIC EVENT. glucose (Diabetic Use) oral gel Oral, PRN, Other, Bedside Glucose less than 70 mg/dL -If able to eat and does not have swallowing difficulties, Starting on Marian 12/31/21 at 0645, Until Marian 01/07/22 at 195, If able to eat and is better [...] pt is symptomatic, do not delay treatment Consider confirming the glucose with a STAT laboratory test Give [...] 80 mg/dl. NOTIFY PROVIDER OF HYPOGLYCEMIC EVENT. glucose chew tablet 4 tablet 4 tablet (16 g), Oral, PRN, Other, Bedside Glucose less than 70 mg/dL -If able to eat and does not have swallowing difficulties, Starting on Marian 12/31/21 at 0645, Until Marian 01/07/22 at 1951, If able to eat and does not [...] pt is symptomatic, do not delay treatment Consider confirming the glucose with a STAT laboratory test Give 32 grams of oral carbohydrates - 8 glucose tabs (see MAR) If patient refuses glucose gel, then offer: - 8 ounces of fruit juice OR - 8 ounces non-diet soda OR - 16 ounces of fat-free milk Re-check and Re-treat blood glucose EVERY 10-25 minutes until blood glucose GREATER than or equal to 80 mg/dl. NOTIFY PROVIDER OF HYPOGLYCEMIC EVENT. ibuprofen (Motrin) tablet 600 mg 600 mg, Oral, EVERY 6 HOURS PRN, Mild Pain, Starting on Tue12/21/21 at 1227, Until Tue12/30/21 at 0544, Maximum allowable amount = 3200 mg / 24 hours. Patient preference for lesser PRN pain meds may be honored when the patient requests a less strong medication, a lower dose, or a less intrusive route of administration when the lesser drug, dose and route have been ordered for the patient. This patient request must be documented in the MAR. $ Given 12/23/2021 4:37 AM CDT 600 m g $ Given 12/21/2021 5:39 PM CDT 600 mg iopamidol (Isovue 300) 61 % contrast Oral, CONTRAST ONCE, 1 dose, Starting on Tue12/30/21 at 1036, Until Tue12/30/21 at 1432 $ Given - Contrast 12/30/2021 2:32 PM CDT 10 mL See Comments iopamidol (Isovue 370) 76 % contrast Intravenous, CONTRAST ONCE, Starting on Tue12/29/21 at 0759, Until Tue12/30/21 at 0604 $ Given - Contrast 12/29/2021 7:59 AM CDT 50 mL lacosamide (Vimpat) injection 200 mg 200 mg, Intravenous, Once, 1 dose, On Tue12/29/21 at 1015, Doses up to 400 mg may be administered undiluted at less than 80 mg/min (400 mg over 5 min) $ Given 12/29/2021 12:10 PM CDT 200 mg lacosamide (Vimpat) injection 200 mg 200 mg, Intravenous, 2 TIMES DAILY, First dose on Tue12/29/21 at 2100, Until Discontinued, Doses up to 400 mg may be administered undiluted at less than 80 mg/min (400 mg over 5 min) $ Given 12/31/2021 9:03 AM CDT 200 mg $ Given 12/30/2021 9:27 PM CDT 200 mg $ Given 12/30/2021 9:32 AM CDT 200 mg lacosamide (Vimpat) tablet 200 mg 200 mg, Oral, 2 TIMES DAILY, First dose on Tue12/21/21 at 2100, Until Discontinued $ Given 12/28/2021 8:25 PM CDT 200 mg $ Given 12/28/2021 10:42 AM CDT 200 mg $ Given 12/27/2021 8:03 PM CDT 200 mg lacosamide (Vimpat) tablet 200 mg 200 mg, Enteral Tube, 2 TIMES DAILY, First dose on Tue12/31/21 at 2100, Until Discontinued $ Given 01/03/2022 8:03 AM CDT 200 mg NG Tube $ Given 01/02/2022 8:27 PM CDT 200 mg NG Tube $ Given 01/02/2022 7:58 AM CDT 200 mg NG Tube lacosamide (Vimpat) tablet 200 mg 200 mg, Oral, 2 TIMES DAILY, First dose (after last modification) on Tue01/03/22 at 2100, Until Discontinued $ Given 01/07/2022 9:04 AM CDT 200 mg $ Given 01/06/2022 10:06 PM CDT 200 mg $ Given 01/06/2022 9:29 AM CDT 200 mg levETIRAcetam (Keppra) 1,000 mg in 100 mL IVPB 1,000 mg, at 400 mL/hr, Intravenous, Once, 1 dose, On Tue12/29/21 at 2100 $ New Bag/Syringe 12/29/2021 8:19 PM CDT 1,000 mg 400 mL/hr levETIRAcetam (Keppra) 2,000 mg in 0.9% NaCl IV 270 mL IVPB 2,000 mg, at 540 mL/hr, Intravenous, EVERY 12 HOURS, First dose on Tue12/30/21 at 0900, Until Discontinued $ New Bag/Syringe 12/31/2021 8:58 AM CDT 2,000 mg 540 mL/hr Rate Change 12/30/2021 9:26 PM CDT 5 mL/hr $ New Bag/Syringe 12/30/2021 8:56 PM CDT 2,000 mg 540 mL /hr levETIRAcetam (Keppra) 3,600 mg in 0.9% NaCl IV 286 mL IVPB 3,600 mg, at 572 mL/hr, Intravenous, Once, 1 dose, On Tue12/29/21 at 1815 $ New Bag/Syringe 12/29/2021 6:26 PM CDT 3,600 mg 572 mL/hr levETIRAcetam (Keppra) tablet 2,000 mg 2,000 mg, Oral, 2 TIMES DAILY, First dose on Tue12/21/21 at 2100, Until Discontinued, Do not crush or chew because of TASTE only. $ Given 12/27/2021 8:03 PM CDT 2,000 mg $ Given 12/27/2021 9:18 AM CDT 2,000 mg $ Given 12/26/2021 8:22 PM CDT 2,000 mg levETIRAcetam (Keppra) tablet 2,000 mg 2,000 mg, Oral, Once, 1 dose, On Tue12/28/21 at 1045, Do not crush or chew because of TASTE only. $ Given 12/28/2021 11:00 AM CDT 2,000 mg levETIRAcetam (Keppra) tablet 2,000 mg 2,000 mg, Enteral Tube, EVERY 12 HOURS, First dose on Tue12/31/21 at 2100, Until Discontinued, Do not crush or chew because of TASTE only. $ Given 01/03/2022 8:03 AM CDT 2,000 mg NG Tu be $ Given 01/02/2022 8:27 PM CDT 2,000 mg NG Tube $ Given 01/02/2022 7:57 AM CDT 2,000 mg NG Tube levETIRAcetam (Keppra) tablet 2,000 mg 2,000 mg, Oral, EVERY 12 HOURS, First dose (after last modification) on Tue01/03/22 at 2100, Until Discontinued, Do not crush or chew because of TASTE only. $ Given 01/07/2022 9:04 AM CDT 2,000 mg $ Given 01/06/2022 10:06 PM CDT 2,000 mg $ Given 01/06/2022 9:30 AM CDT 2,000 mg LORazepam (Ativan) injection 1 mg 1 mg, Intravenous, ONCE, 1 dose, On Tue12/29/21 at 0800 $ Given 12/29/2021 7:44 AM CDT 1 mg LORazepam (Ativan) injection 2 mg 2 mg, Intravenous, ONCE, 1 dose, On Tue12/22/21 at 0645 $ Given 12/22/2021 6:22 AM CDT 2 mg LORazepam (Ativan) injection 2 mg 2 mg, Intravenous, ONCE, 1 dose, On Tue12/29/21 at 0845 $ Given 12/29/2021 7:55 AM CDT 2 mg LORazepam (Ativan) injection 3 mg 3 mg, Intravenous, ONCE, 1 dose, On Tue12/30/21 at 0345 $ Given 12/30/2021 3:25 AM CDT 3 mg LORazepam (Ativan) injection 4 mg 4 mg, Intravenous, ONCE, 1 dose, On Tue12/30/21 at 2330 $ Given 12/30/2021 11:14 PM CDT 4 mg LORazepam (Ativan) injection ADS Med 1 dose, Starting on Tue12/29/21 at 0742, Until Tue12/29/21 at 0744, Created by alfredo sommer LORazepam (Ativan) tablet 1 mg 1 mg, Oral, ONCE, 1 dose, On Tue12/25/21 at 0500 $ Given 12/25/2021 4:43 AM CDT 1 mg magnesium sulfate 1 g in 100 mL bolus 1 g, at 100 mL/hr, Administer over 60 Minutes, Intravenous, ONCE, 1 dose, On Tue01/06/22 at 0745, Infuse at 1 gm/hr $ New Bag/Syringe 01/06/2022 9:23 AM CDT 1 g 100 mL/hr magnesium sulfate 2 g in 50 mL bolus 2 g, at 25 mL/hr, Administer over 120 Minutes, Intravenous, ONCE, 1 dose, On Tue12/29/21 at 1100, Infuse at 1 gm/hr $ New Bag/Syringe 12/29/2021 12:29 PM CDT 2 g 25 mL/hr magnesium sulfate 2 g in 50 mL bolus 2 g, at 25 mL/hr, Administer over 120 Minutes, Intravenous, ONCE, 1 dose, On Tue01/05/22 at 1000, Infuse at 1 gm/hr $ New Bag/Syringe 01/05/2022 12:26 PM CDT 2 g 25 mL/hr melatonin tablet 3 mg 3 mg, Oral, AT BEDTIME PRN, Insomnia, Starting on Tue12/29/21 at 0023, Until Tue12/30/21 at 0544 $ Given 12/29/2021 1:27 AM CDT 3 mg methylPREDNISolone sod succ (SOLU-Medrol) 1,000 mg in 0.9% NaCl IV 100 mL bolus 1,000 mg, at 100 mL/hr, Intravenous, ONCE, 1 dose, On Tue12/28/21 at 1800 $ New Bag/Syringe 12/28/2021 6:42 PM CDT 1,000 mg 100 mL/hr methylPREDNISolone sod succ (SOLU-Medrol) 1,000 mg in 0.9% NaCl IV 100 mL bolus 1,000 mg, at 100 mL/hr, Intravenous, DAILY, 2 doses, First dose on Tue12/29/21 at 0900, Last dose on Tue12/30/21 at 0900 $ New Bag/Syringe 12/30/2021 11:39 AM CDT 1,000 mg 100 mL/hr $ New Bag/Syringe 12/29/2021 9:54 AM CDT 1,000 mg 100 mL /hr methylPREDNISolone sod succ (SOLU-Medrol) 1,000 mg in 0.9% NaCl IV 100 mL bolus 1,000 mg, at 100 mL/hr, Intravenous, DAILY, 2 doses, First dose (after last reorder) on Tue12/31/21 at 1215, Last dose on Tue01/01/22 at 0900 $ New Bag/Syringe 01/01/2022 11:57 AM CDT 1,000 mg 100 mL/hr $ New Bag/Syringe 12/31/2021 12:06 PM CDT 1,000 mg 100 m L/hr midazolam (Versed) injection 2 mg 2 mg, Intravenous, ONCE, 1 dose, On Tue12/30/21 at 1200 $ Given 12/30/2021 12:05 PM CDT 2 mg midazolam (Versed) injection 2 mg 2 mg, Intravenous, EVERY 5 MIN PRN, seizures, Starting on Tue12/30/21 at 1139, Until 01/02/22 at 1358, Hold for oversedation Max of 10mg per hour $ Given 01/02/2022 4:11 AM CDT 2 mg $ Given 01/01/2022 4:26 AM CDT 2 mg $ Given 01/01/2022 2:29 AM CDT 2 mg multivitamin daily tablet 1 tablet 1 tablet, Oral, DAILY, First dose on 01/04/22 at 0930, Until Discontinued, . WASTE DISPOSAL INSTRUCTIONS: Black Bin Disposal required. $ Given 01/07/2022 9:04 AM CDT 1 tablet $ Given 01/06/2022 9:30 AM CDT 1 tablet $ Given 01/05/2022 9:43 AM CDT 1 tablet ondansetron (Zofran) injection 4 mg 4 mg, Intravenous, EVERY 8 HOURS PRN, Nausea/Vomiting, Starting on 12/26/21 at 0437, Until Marian 01/07/22 at 1951, Administer over 2 to 5 minutes. pancrelipase (Zenpep 10,000) capsule 1 capsule 1 capsule, Enteral Tube, ONCE, 1 dose, On Tue12/30/21 at 2115, Open capsule and crush contents with sodium bicarbonate tablet. Mix with 5 mL of warm water. Infuse mixture into clogged feeding tube. Clamp tube for 5 minutes, and then flush with 50 ml of tap water. Do not crush or chew. $ Given 12/30/2021 8:59 PM CDT 1 capsule NG Tube pantoprazole (Protonix) injection 40 mg 40 mg, Intravenous, DAILY, First dose on Tue12/30/21 at 1230, Until Discontinued, For every 40 mg of pantoprazole mix with 10 mL Normal Saline (final concentration = 4 mg/mL). Inject SLOWLY over 2 min. $ Given 01/02/2022 7:59 AM CDT 40 mg $ Given 01/01/2022 8:52 AM CDT 40 mg $ Given 12/31/2021 9:02 AM CDT 40 mg polyethylene glycol 3350 (Miralax) packet 17 g 17 g, Enteral Tube, DAILY, First dose on Marian 12/31/21 at 1215, Until Discontinued, Mix in 8 ounces of water, juice, soda, coffee or tea prior to administration $ Given 01/03/2022 8:04 AM CDT 17 g NG Tube $ Given 01/02/2022 7:58 AM CDT 17 g NG Tube $ Given 01/01/2022 8:53 AM CDT 17 g NG Tube polyethylene glycol 3350 (Miralax) packet 17 g 17 g, Oral, DAILY, First dose (after last modification) on 01/04/22 at 0900, Until Discontinued, Mix in 8 ounces of water, juice, soda, coffee or tea prior to administration $ Given 01/07/2022 9:03 AM CDT 17 g $ Given 01/06/2022 9:27 AM CDT 17 g $ Given 01/05/2022 9:44 AM CDT 17 g potassium - sodium phosphates (Phos-Nak) powder 1 packet 1 packet, Enteral Tube, Once, 1 dose, On 01/03/22 at 0500, Mix contents of packet in 6 to 8 ounces of water and drink, may taste better if cold Contains Phos 8 mmol, K+ 7 mEq, Na 7 mEq per packet $ Given 01/03/2022 4:48 AM CDT 1 packet NG Tu be sodium - potassium phosphates (K Phos Neutral) tablet 2 tablet 2 tablet, Enteral Tube, ONCE, 1 dose, On 01/02/22 at 0445, Contains Phos 8 mmol, K+ 1.1 mEq, Na 13 mEq per tablet $ Given 01/02/2022 4:48 AM CDT 2 tablets NG Tube sodium bicarbonate tablet 650 mg 650 mg, Enteral Tube, ONCE, 1 dose, On 12/30/21 at 2115, Crush with contents of pancrelipase capsule then mix with 5 mL warm water. Infuse mixture into clogged feeding tube. Clamp feeding tube for 5 minutes. Flush with 50 ml of tap water. $ Given 12/30/2021 8:58 PM CDT 650 mg NG Tu be tamsulosin (Flomax) capsule 0.4 mg 0.4 mg, Oral, DAILY, First dose on Tue12/22/21 at 0900, Until Discontinued, At the same time every day after a meal. Do not crush, chew $ Given 01/07/2022 9:04 AM CDT 0.4 mg $ Given 01/06/2022 9:30 AM CDT 0.4 mg $ Given 01/05/2022 9:44 AM CDT 0.4 mg thiamine (Vitamin B-1) tablet 100 mg 100 mg, Oral, DAILY, First dose on Tue01/04/22 at 0930, Until Discontinued $ Given 01/07/2022 9:04 AM CDT 100 mg $ Given 01/06/2022 9:31 AM CDT 100 mg $ Given 01/05/2022 9:44 AM CDT 100 mg valproate (Depacon) 1,200 mg in 0.9% NaCl IV 62 mL IVPB 1,200 mg, at 124 mL/hr, Intravenous, Once, 1 dose, On Tue12/29/21 at 2345 $ New Bag/Syringe 12/29/2021 11:53 PM CDT 1,200 mg 124 mL/hr valproate (Depacon) 500 mg in 0.9% NaCl IV 55 mL IVPB 500 mg, at 110 mL/hr, Intravenous, Once, 1 dose, On Tue12/29/21 at 0945 $ New Bag/Syringe 12/29/2021 11:53 AM CDT 500 mg 110 mL/hr valproate (Depacon) 500 mg in 0.9% NaCl IV 55 mL IVPB 500 mg, at 110 mL/hr, Intravenous, 3 TIMES DAILY, First dose on Tue12/29/21 at 1815, Until Discontinued Rate Change 12/30/2021 9:43 PM CDT 5 mL/hr $ New Bag/Syringe 12/30/2021 9:12 PM CDT 500 mg 110 mL /hr $ New Bag/Syringe 12/30/2021 1:16 PM CDT 500 mg 110 mL /hr valproate (Depacon) 500 mg in 0.9% NaCl IV 55 mL IVPB 500 mg, at 110 mL/hr, Intravenous, EVERY 6 HOURS, First dose (after last modification) on [facility] 12/31/21 at 0600, Until Discontinued $ New Bag/Syringe 12/31/2021 5:21 AM CDT 500 mg 110 mL/hr valproate (Depacon) 500 mg in 0.9% NaCl IV 55 mL IVPB 500 mg, at 110 mL/hr, Intravenous, ONCE, 1 dose, On Tue12/30/21 at 2345 $ New Bag/Syringe 12/31/2021 12:03 AM CDT 500 mg 110 mL/hr valproate (Depacon) 500 mg in 0.9% NaCl IV 55 mL IVPB 500 mg, at 110 mL/hr, Intravenous, EVERY 6 HOURS, 4 doses, First dose on Tue12/31/21 at 1200, Last dose on Tue01/01/22 at 0600 $ New Bag/Syringe 12/31/2021 11:31 AM CDT 500 mg 110 mL/hr valproate (Depacon) 500 mg in 0.9% NaCl IV 55 mL IVPB 500 mg, at 110 mL/hr, Intravenous, EVERY 6 HOURS, 3 doses, First dose (after last reorder) on Tue12/31/21 at 1800, Last dose on Tue01/01/22 at 0600 Rate Change 01/01/2022 5:58 AM CDT 110 mL/hr Rate Change 01/01/2022 5:58 AM CDT 5 mL/hr Rate Change 01/01/2022 5:52 AM CDT 110 mL/hr valproic acid (Depakene) solution 500 mg 500 mg, Enteral Tube, EVERY 6 HOURS, First dose on Tue01/01/22 at 1200, Until Discontinued $ Given 01/03/2022 5:29 PM CDT 500 mg NG Tube $ Given 01/03/2022 11:02 AM CDT 500 mg N G Tube $ Given 01/03/2022 5:11 AM CDT 500 mg NG Tube valproic acid (Depakene) solution 500 mg 500 mg, Oral, EVERY 6 HOURS, First dose (after last modification) on Tue01/04/22 at 0000, Until Discontinued $ Given 01/04/2022 5:26 AM CDT 500 mg $ Given 01/03/2022 11:21 PM CDT 500 mg vitamin D3 (Cholecalciferol) 25 MCG (1000 UNITS) tablet 1,000 Units 1,000 Units, Oral, DAILY, First dose on Tue12/22/21 at 0900, Until Discontinued, 1000 units = 25 mcg $ Given 12/28/2021 10:43 AM CDT 1,000 Uni ts $ Given 12/27/2021 9:18 AM CDT 1,000 Units $ Given 12/26/2021 8:20 AM CDT 1,000 Units vitamin D3 (Cholecalciferol) 25 MCG (1000 UNITS) tablet 1,000 Units 1,000 Units, Enteral Tube, DAILY, First dose (after last modification) on Tue01/01/22 at 0900, Until Discontinued, 1000 units = 25 mcg $ Given 01/03/2022 8:04 AM CDT 1,000 Units NG Tube $ Given 01/02/2022 7:58 AM CDT 1,000 Units N G Tube $ Given 01/01/2022 8:53 AM CDT 1,000 Units N G Tube vitamin D3 (Cholecalciferol) 25 MCG (1000 UNITS) tablet 1,000 Units 1,000 Units, Oral, DAILY, First dose (after last modification) on Tue01/04/22 at 0900, Until Discontinued, 1000 units = 25 mcg $ Given 01/07/2022 9:05 AM CDT 1,000 Units $ Given 01/06/2022 9:31 AM CDT 1,000 Units $ Given 01/05/2022 9:43 AM CDT 1,000 Units documented in this encounter Active and Recently Administered Medications Times are shown in CDT. Scheduled Medication Order 01/05/2022 01/06/2022 01/07/2022 0.9% NaCl injection 3 mL 3 mL, Intracatheter, EVERY 8 HOURS, First dose on Tue12/28/21 at 1400, Until Discontinued 0457 ($ Given - Provider: Duy Alejo RN)1434 (Held - Provider: Patricia Berry RN - Reason: IV Currently Infusing)2127 ($ Given - Provider: Gaurav Bassett RN) 0654 ($ Given - Provider: Gaurav Bassett RN)1450 ($ Given - Provider: Hermes Monreal, RN)2208 ($ Given - Provider: Alma Fajardo, RN) 0622 ($ Given - Provider: Alma Fajardo, RN)1358 ($ Given - Provider: Hermes Monreal, RN) amLODIPine (Norvasc) tablet 5 mg 5 mg, Oral, AT BEDTIME, First dose (after last modification) on Tue01/03/22 at 2100, Until Discontinued 2121 ($ Given - Provider: Gaurav Bassett RN) 2208 ($ Given - Provider: Alma Fajardo, RN) aspirin chew tablet 81 mg 81 mg, Oral, DAILY, First dose (after last modification) on Tue01/04/22 at 0900, Until Discontinued 0943 ($ Given - Provider: Patricia Berry RN) 0929 ($ Given - Provider: Hermes Monreal, RN) 0904 ($ Given - Provider: Hermes Monreal, RN) atorvastatin (Lipitor) tablet 40 mg 40 mg, Oral, DAILY, First dose (after last modification) on Tue01/04/22 at 0900, Until Discontinued 0944 ($ Given - Provider: Patricia Berry RN) 0930 ($ Given - Provider: Hermes Monreal, RN) 0903 ($ Given - Provider: Hermes Monreal, RN) cloBAZam (Onfi) tablet 10 mg 10 mg, Oral, 2 TIMES DAILY, First dose (after last modification) on Tue01/03/22 at 2100, Until Discontinued, HOLD for oversedation 0943 ($ Given - Provider: Patricia Berry RN)2122 ($ Given - Provider: Gaurav Bassett RN) 09 ($ Given - Provider: Hermes Monreal, RN)220 ($ Given - Provider: Alma Fajardo, RN) 0904 ($ Given - Provider: Hermes Monreal, RN) divalproex DR (Depakote) tablet 1,000 mg 1,000 mg, Oral, 2 TIMES DAILY, First dose on Tue01/04/22 at 1200, Until Discontinued, Do not crush, chew, or cut in half. 0944 ($ Given - Provider: Patricia Berry RN)2121 ($ Given - Provider: Gaurav Bassett RN) 09 ($ Given - Provider: Hermes Monreal RN)220 ($ Given - Provider: Alma Fajardo, RN) 0903 ($ Given - Provider: Hermes Monreal, RN) enoxaparin (Lovenox) injection 40 mg 40 mg, Subcutaneous, DAILY, First dose on Tue12/21/21 at 1300, Until Discontinued, (for prefilled syringes) do not expel air bubble from the syringe prior to the injection Remind Patient to not rub injection site. Could cause hematoma. 0945 ($ Given - Provider: Patricia Berry RN) 0927 ($ Given - Provider: Hermes Monreal RN) 0906 ($ Given - Provider: Hermes Monreal RN) folic acid (Folvite) tablet 1 mg 1 mg, Oral, DAILY, First dose on Tue01/04/22 at 0930, Until Discontinued 0943 ($ Given - Provider: Patricia Berry RN) 0929 ($ Given - Provider: Hermes Monreal RN) 0905 ($ Given - Provider: Hermes Monreal, RN) lacosamide (Vimpat) tablet 200 mg 200 mg, Oral, 2 TIMES DAILY, First dose (after last modification) on Tue01/03/22 at 2100, Until Discontinued 0944 ($ Given - Provider: Patricia Berry RN)212 ($ Given - Provider: Gaurav Bassett RN) 0929 ($ Given - Provider: Hermes Monreal, RN)220 ($ Given - Provider: Alma Fajardo, RN) 0904 ($ Given - Provider: Hermes Monreal, ALFRED) levETIRAcetam (Keppra) tablet 2,000 mg 2,000 mg, Oral, EVERY 12 HOURS, First dose (after last modification) on Tue01/03/22 at 2100, Until Discontinued, Do not crush or chew because of TASTE only. 0943 ($ Given - Provider: Patricia Berry RN)2122 ($ Given - Provider: Gaurav Bassett RN) 0930 ($ Given - Provider: Hermes Monreal, RN)220 ($ Given - Provider: Alma Fajardo, RN) 0904 ($ Given - Provider: Hermes Monreal, RN) magnesium sulfate 1 g in 100 mL bolus (COMPLETED) 1 g, at 100 mL/hr, Administer over 60 Minutes, Intravenous, ONCE, 1 dose, On Tue01/06/22 at 0745, Infuse at 1 gm/hr 0923 ($ New Bag/Syringe - Provider: Hermes Monreal RN)1023 (Stopped - Provider: Hermes Monreal, RN) magnesium sulfate 2 g in 50 mL bolus (COMPLETED) 2 g, at 25 mL/hr, Administer over 120 Minutes, Intravenous, ONCE, 1 dose, On Tue01/05/22 at 1000, Infuse at 1 gm/hr 1226 ($ New Bag/Syringe - Provider: Patricia Berry RN)1434 (Stopped - Provider: Patricia Berry, ALFRED) multivitamin daily tablet 1 tablet 1 tablet, Oral, DAILY, First dose on Tue01/04/22 at 0930, Until Discontinued, . WASTE DISPOSAL INSTRUCTIONS: Black Bin Disposal required. 0943 ($ Given - Provider: Patricia Berry RN) 09 ($ Given - Provider: Hermes Monreal, RN) 09 ($ Given - Provider: Hermes Monreal, RN) polyethylene glycol 3350 (Miralax) packet 17 g 17 g, Oral, DAILY, First dose (after last modification) on Tue01/04/22 at 0900, Until Discontinued, Mix in 8 ounces of water, juice, soda, coffee or tea prior to administration 0944 ($ Given - Provider: Patricia Berry RN) 09 ($ Given - Provider: Hermes Monreal, RN) 09 ($ Given - Provider: Hermes Monreal, RN) tamsulosin (Flomax) capsule 0.4 mg 0.4 mg, Oral, DAILY, First dose on Tue12/22/21 at 0900, Until Discontinued, At the same time every day after a meal. Do not crush, chew 0944 ($ Given - Provider: Patricia Berry RN) 09 ($ Given - Provider: Hermes Monreal, RN) 09 ($ Given - Provider: Hermes Monreal, RN) thiamine (Vitamin B-1) tablet 100 mg 100 mg, Oral, DAILY, First dose on Tue01/04/22 at 0930, Until Discontinued 09 ($ Given - Provider: Patricia Berry RN) 09 ($ Given - Provider: Hermes Monreal, RN) 09 ($ Given - Provider: Hermes Monreal, RN) vitamin D3 (Cholecalciferol) 25 MCG (1000 UNITS) tablet 1,000 Units 1,000 Units, Oral, DAILY, First dose (after last modification) on Tue01/04/22 at 0900, Until Discontinued, 1000 units = 25 mcg 0943 ($ Given - Provider: Patricia Berry RN) 09 ($ Given - Provider: Hermes Monreal, RN) 09 ($ Given - Provider: Hermes Monreal, RN) PRN Medication Order 01/05/2022 01/06/2022 01/07/2022 dextrose IV 12.5 g(Linked Group 1) 12.5 g, Intravenous, PRN, Other, Bedside Glucose less than 70 mg/dL -If NOT able to eat and/or NPO and with IV Access, Starting on [facility] 12/31/21 at 0645, Until [facility] 01/07/22 at 1950, If NOT able to eat and/or NPO [...] mg/dl. NOTIFY PROVIDER OF HYPOGLYCEMIC EVENT. dextrose IV 25 g(Linked Group 1) 25 g, Intravenous, PRN, Other, Bedside Glucose less than 70 mg/dL -If NOT able to eat and/or NPO and with IV Access, Starting on [facility] 12/31/21 at 0645, Until [facility] 01/07/22 at 1950, If NOT able to eat and/or NPO [...] 80 mg/dl. NOTIFY PROVIDER OF HYPOGLYCEMIC EVENT. glucagon (Glucagen) injection 1 mg 1 mg, Intramuscular, PRN, Bedside Glucose less than 70 mg/dL - If NOT able to eat and/or NPO and withOUT IV Access, Starting on [facility] 12/31/21 at 0645, Until [facility] 01/07/22 at 1950, If NOT able to eat and/or NPO and NO IV Access: For Bedside glucose 54-69 mg/dL Give 1 mg IM or SQ For Bedside Glucose LESS than 54 mg/dl verify with a second bedside glucose (from a different site) and Give 1 mg IM or SQ Re-check and Re-treat blood glucose EVERY [...] does not have swallowing difficulties, Starting on [facility] 12/31/21 at 0645, Until Marian 01/07/22 at 195, If able to eat and can swallow [...] pt is symptomatic, do not delay treatment Consider confirming the glucose with a STAT laboratory test Give [...] 80 mg/dl. NOTIFY PROVIDER OF HYPOGLYCEMIC EVENT. glucose (Diabetic Use) oral gel Oral, PRN, Other, Bedside Glucose less than 70 mg/dL -If able to eat and does not have swallowing difficulties, Starting on [facility] 12/31/21 at 0645, Until [facility] 01/07/22 at 1950, If able to eat and is better [...] pt is symptomatic, do not delay treatment Consider confirming the glucose with a STAT laboratory test Give [...] 80 mg/dl. NOTIFY PROVIDER OF HYPOGLYCEMIC EVENT. glucose chew tablet 4 tablet 4 tablet (16 g), Oral, PRN, Other, Bedside Glucose less than 70 mg/dL -If able to eat and does not have swallowing difficulties, Starting on [facility] 12/31/21 at 0645, Until [facility] 01/07/22 at 1950, If able to eat and does not [...] pt is symptomatic, do not delay treatment Consider confirming the glucose with a STAT laboratory test Give 32 grams of oral carbohydrates - 8 glucose tabs (see MAR) If patient refuses glucose gel, then offer: - 8 ounces of fruit juice OR - 8 ounces non-diet soda OR - 16 ounces of fat-free milk Re-check and Re-treat blood glucose EVERY 10-25 minutes until blood glucose GREATER than or equal to 80 mg/dl. NOTIFY PROVIDER OF HYPOGLYCEMIC EVENT. ondansetron (Zofran) injection 4 mg 4 mg, Intravenous, EVERY 8 HOURS PRN, Nausea/Vomiting, Starting on 12/26/21 at 0437, Until [facility] 01/07/22 at 1950, Administer over 2 to 5 minutes. Linked Groups Order Group 1: dextrose IV 12.5 gJump to med 12.5 g, Intravenous, PRN, Other, Bedside Glucose less than 70 mg/dL -If NOT able to eat and/or NPO and with IV Access, Starting on [facility] 12/31/21 at 0645, Until [facility] 01/07/22 at 1950, If NOT able to eat and/or NPO [...] NOTIFY PROVIDER OF HYPOGLYCEMIC EVENT. Or dextrose IV 25 gJump to med 25 g, Intravenous, PRN, Other, Bedside Glucose less than 70 mg/dL -If NOT able to eat and/or NPO and with IV Access, Starting on [facility] 12/31/21 at 0645, Until [facility] 01/07/22 at 1951, If NOT able to eat and/or NPO and with IV Access: For Bedside Glucose 54- 69 mg/dL give 12.5 g Dextrose IV STAT For Bedside Glucose LESS than 54 mg/dl verify with a second Bedside Glucose (from a different site) and give 25 g Dextrose IV STAT Re-check and Re-treat blood glucose EVERY , 10-25 minutes until blood glucose GREATER than or equal to 80 mg/dl. NOTIFY PROVIDER OF HYPOGLYCEMIC EVENT. documented in this encounter Care Teams Cleaner Housekeeping Relationship Specialty Start Date End Date Daryl Barr MD PCP - General 09/16/20 03/07/22 Elizabeth Sullivan, RN Film Washer 10/14/17 documented as of this encounter
--- OUTSIDE RECORDS SUMMARY | 2024-06-08 05:41 | XMS_ITS | Encounter Summary ---
Author Organization [facility] Health Address [address] [facility] [place] [address] Care Team Providers Care Heeler Machine Name Role Phone Elizabeth Sullivan RN Unavailable [phone] Daryl Barr MD Primary Care Provider [phone] Reason for Visit * Reason Comments Seizure Encounter Details Date Type Department Care Team (Late st Contact Info) Description 03/12/2021 9:00 AM CDT Office Visit [facility] Neurology [address] [place] [address], [facility] [place] [address] Ck Feliciano MD [address] [place] [address] [place] [address] Partial 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, intractable, with status epilepticus (HCC) (Primary Dx); Cerebrovascular accident (CVA), unspecified mechanism (HCC); Cervical spinal stenosis; Folate deficiency; Vitamin B12 deficiency; Thiamine deficiency Social History Tobacco Use Types Packs/Day Years [...] Sign Reading Time Taken Comments Blood Pressure 114/71 03/12/2021 8:59 AM CDT Pulse 65 03/12/2021 8:59 AM CDT Temperature 36.3 ??C (97.3 ??F) 03/12/2021 8:59 AM CD T Respiratory Rate - - Oxygen Saturation 90% 03/12/2021 8:59 AM CDT Inhaled Oxygen Concentration - - Weight - - Height 180.3 cm (5' 11 ) 03/12/2021 8:59 AM CDT Body Mass Index - - documented in [...] Yes 08/18/2020 documented as of this encounter Patient Instructions * Patient Instructions* Ck Feliciano MD - 03/12/2021 9:44 AM CDT 1. In regards to your seizure medicine, you used to be on Depakote DR 1000 mg twice a day, but it was cut down in November to 500 mg twice a day, and the level is a little low. You used to take 750 twicea day a few years ago, and we will put it back up to where it used to be. 2. For medication for breakthrough seizures, we will give you a Nasal Fleetwood call Valtoco . That isto be used in each nostril for breakthrough seizure to prevent clustering, because your seizures have a high tendency to go [id number]. 3. We will also get you an MRI of the Brain and Neck also. The MRI of the brain is to evaluate for any small strokes. The neck is for your spine. Seizure medications are: Levetiractam 1000 mg tab 2 tabs AM - [address] 500 mg tab 1 tab AM - [address] 250 mg tab 1 tab AM - 1 tab PM Vimpat 200 mg tab 1 tab AM - 1 tab PM Valtoco Fleetwood [7.5 mg each nostrils] for seizures [Total 15 mg] ?? documented in this encounter Progress Notes * Ck Feliciano MD - 03/12/2021 9:19 AM CDT Epilepsy Clinic Note PCP - Date of Encounter: 03/12/2021 Chief Complaint: Seizures Gait difficulty MRI abnormality AGE OF ONSET 31s SEMIOLOGY - Aura Tingling sensation over the right side - Ictus 1. Dyscongitive events 2. Convulsions, tongue bites - Post-ictus Confusion, aggression, disagreeable, ?paranoia, lasting several days SEIZURE CONTROL Seizure frequency 1. Initially 1 event every 2 weeks, now controlled from 04/2019 2. Initially 1 event every 1 month, now controlled from 04/2019 Date of last seizure Status epilepticus in 04/2019 suspected due to erratic dosing. MEDICATION Name Pill Size Frequency AED Level Start Levetiractam 1000 mg tab 2 - [address] 500 mg tab [2 - 2: Office] --> [1 - 1: Home] Vimpat 200 tab 1 - 1 Clonazepam 1 mg tab PRN COMPLIANCE Good TREATMENT HISTORY Name Allergy/Side Effects/Ineffectiveness Phenytoin Oxcarbazepine Hyponatremia Eslicabazepine Erratic Clonazepam Excessive somnolence at 4 mg/day EE07/2015 Normal awake and drowsy EEG 09/2017 cEEG This is an abnormal EEG. The abnormalities are in the form of: 1. Intermittent interictal sharp wave discharges in the right frontal region, spread to bi-frontal regions some time, more during sleep than awake. One clinical focal seizure impairment of awareness from right frontal, anterior temporal regions, secondary generalized to hyper motor activity with 2 minute duration around 5 am on 10/14/2017. ?? 2. Right hemisphere lateralized slowing with right temporal focal slowing, suggestive of underline structure/functional abnormalities. 04/2019 cEEG This is an abnormal cEEG due to 1) focal onset seizures, 2) right hemispheric epileptiform discharges and lateralized periodic discharges (LPDs), 3) lateralized right hemispheric slowing, and 4) moderate generalized slowing. IMAGIN07/2016 CT Brain: Focal area of encephalomalacia in the right occipital lobe 01/2018 MRI C-Spine showed multilevel C-stenosis 04/2019 MRI Brain showed right hemispheric cortical and thalamic FLAIR/DWI changes CLASSIFICATION: Partial onset epilepsy LABORATORY RESULTS CBC: Recent Labs Component Name 02/25/21 1135 08/20/20 0403 08/19/20 1254 WBC 6.4 9.5 10.2 HGB 14.7 15.9 15.5 PLTCOUNT 139* 121* 86* BMP: Recent Labs Component Name 02/25/21 1212 08/20/20 0403 08/17/20 1455 NA 140 141 145 CO2 23 26 26 CREATININE 0.83 1.0 1.0 LFT: Recent Labs Component Name 02/25/21 1212 08/13/20 1700 06/18/19 1426 AST 17 21 13 ALT 9 11 7 VITAMIN D: Recent Labs Component Name 05/10/19 0832 01/15/19 0722 [id number] 28.9* 6.7* Brief History: - 61 year old man with PMH of alcohol abuse, and head injury, post-stroke epilepsy, came to Epilepsy Clinic for follow up. Age of onset at 50-year-old. Clinical semiology described as (Aura) tinglingsensation over the right side, (Ictus #1) brief dyscognitive events, and (Ictus #2) generalized convulsions, tongue bites. Also has Cervical Osteoarthritis, B12 Deficiency, history of alcohol dependence resolved 2015. - Initially was taking Levetiracetam 1500 mg BID, with seizure being controlled but has multiple seizures in 09/2017, in the setting of missed dosage. The seizures clustered, and was difficult to control. Later, his Levetiracetam was increased and Depakote was added. He does have erratic compliance at times, but still has breakthrough seizures even with good compliance, with breakthough event withLevetiracetam 2000 mg [address]ID [address] Dep[address]ote DR 500 mg BID. Initiated Oxcarbazepine with improved seizurecontrol, but had symptomatic hyponatremia. Tried substituting Aptiom for Oxcarbazepine, but stoppedDepakote instead. Given confusion, asked to stop both Aptiom and Oxcarbazepine for the time being but had generalized covulsions occurred in 01/24/2018, which resulted in ER visit. Provided Vimpat as alternative. - Seizures controlled until 04/2019, until had repetitive seizures and status epilepticus. Etiologysuspected due to erratic compliance. Had refractory status epilepticus, and AEDs was increased upondischarge. Had seizures again in 07/2020, with subtherapeutic AED level (VPA < 13, known [id number] - 80), signifying compliance issue. Had another event in 11/2020, admitted at OSH, with suspected erratic dosing. Discharges with altered AED regimen, with added Clonazepam (increased) and reduced Depakote DR (decreased). In early February 2021, came late to the clinic visit but was noted to be weaker on the left side with increased somnolence per sister, went to ER. Code stroke called. Noted tohave left sided carotid stenosis, pending Vascular Neurology appointment. Poor tolerance to standing Clonazepam in the form of increased somnolence, which was discontinued. At that time, it was notedVPA level in ED was lower (< 50) than her typical baseline (< 60 - 80). - From last visit, now more awake after Clonazepam was discontinued. Home Medications: Current Outpatient Medications Medication Sig ??? acetaminophen (TYLENOL) 325 MG tablet ??? amLODIPine (NORVASC) 5 MG tablet Take 1 tablet by mouth once daily ??? aspirin (ASPIRIN) 81 MG chew tablet Take 1 tablet by mouth once daily ??? atorvastatin (LIPITOR) 40 MG tablet Take 1 (one) tablet by mouth at bedtime ??? clonazePAM (KLONOPIN) 2 MG tablet Take 1 (one) tablet by mouth 2 times daily ??? Cyanocobalamin (B-12) 1000 MCG Take 1 mg by mouth once daily ??? divalproex DR (DEPAKOTE) 500 MG tablet Take 2 (two) tablets by mouth 2 times daily ??? folic acid (FOLVITE) 1 MG tablet Take 1 tablet by mouth once daily ??? ibuprofen (MOTRIN) 600 MG tablet ??? lacosamide (VIMPAT) 200 MG tablet Take 1 (one) tablet by mouth 2 times daily ??? levETIRAcetam (KEPPRA) 1000 MG tablet Take 2 (two) tablets by mouth 2 times daily ??? multivitamin daily tablet Take 1 (one) tablet by mouth once daily ??? tamsulosin (FLOMAX) 0.4 MG capsule 0.4 mg once daily ??? thiamine (VITAMIN B-1) 100 MG tablet Take 1 tablet by mouth once daily No current facility-administered medications for this visit. PMH: Past Medical History: Diagnosis Date ??? Alcohol abuse ??? Arthritis ??? Hypertension ??? Seizure ??? Stroke 03/19/15 Family History: No family history on file. Social History: Social History Social History ??? Marital status: Single Spouse name: N/A ??? Number of children: N/A ??? Years of education: N/A Occupational History ??? Not on file. Social History Main Topics ??? Smoking status: Current Every Day Smoker Packs/day: 0.50 Types: Cigarettes ??? Smokeless tobacco: Never Used ??? Alcohol use 3.5 oz/week 6 Cans of beer, 1 Shots of liquor per week ??? Drug use: No ??? Sexual activity: Yes Partners: Female control/ protection: Condom Other Topics Concern ??? Not on file Social History Narrative Physical Exam: Vitals: 03/12/21 0859 BP: 114/71 Pulse: 65 Temp: 97.3 ??F (36.3 ??C) SpO2: 90% Height: 5' 11 (1.803 m) General Awake, alert, appropriate HEENT: Head normocephalic and atraumatic Extremities: No cyanosis or edema noted ?? Cortical Function: MS: Awake, Alert, Follows Commands Oriented to Person, Place and Time Language: Fluent, Coherent, Repetition Intact ?? Cranial Nerves: Full EOM, No ptosis or nystagmus No facial palsy Palate symmetric; Normal tongue protrusion ?? Motor: ?? Strength: RUE 4+/5 LUE 4/5 RLE 4+/5 LLE 4/5 ?? Cerebellar: FNF intact bilaterally, but slow Gait: Ataxic/spastic wide base gait Assessment/Plan: ## Focal seizures with secondary generalizations. - 61-year-old with PMH of alcohol abuse, and head injury, post-stroke epilepsy, came to Epilepsy Clinic for follow up. Age of onset at 50-year-old. Clinical semiology described as (Aura) tingling sensation over the right side, (Ictus #1) brief dyscognitive events, and (Ictus #2) generalized convulsions, tongue bites. Also has Cervical Osteoarthritis, B12 Deficiency, history of alcohol dependence resolved 2015. - Initially was taking Levetiracetam 1500 mg BID, with seizure being controlled but has multiple seizures in 09/2017, in the setting of missed dosage. The seizures clustered, and was difficult to control, and ecame refractory status epilepticus as time progressed. Seizures provoked by erratic compliance. Now on 3 AED regimen [VPA/LEV/LCM], unclear which is most effective. Outpatient tapering will be difficult because this patient is prone to status epilepticus upon breakthrough seizures. Later, his Levetiracetam was increased and Depakote was added. He does have erratic compliance at times, but still has breakthrough seizures even with good compliance, with breakthough event with Levetiracetam 2000 mg BID and Depakote DR 500 mg BID. Initiated Oxcarbazepine with improved seizure control, but had symptomatic hyponatremia. Tried substituting Aptiom for Oxcarbazepine, but stopped Depakote instead. Given confusion, asked to stop both Aptiom and Oxcarbazepine for the time being but had generalized covulsions occurred in 01/24/2018, which resulted in ER visit. Provided Vimpat as alternative. - Seizures controlled until 04/2019, until had repetitive seizures and status epilepticus. Etiologysuspected due to erratic compliance. Had refractory status epilepticus, and AEDs was increased upondischarge. Had seizures again in 07/2020, with subtherapeutic AED level (VPA < 13, known [id number] - 80), signifying compliance issue. Had another event in 11/2020, admitted at OSH, with suspected erratic dosing. Discharges with altered AED regimen, with added Clonazepam (increased) and reduced Depakote DR (decreased). In early February 2021, came late to the clinic visit but was noted to be weaker on the left side with increased somnolence per sister, went to ER. Code stroke called. Noted tohave left sided carotid stenosis, pending Vascular Neurology appointment. Poor tolerance to standing Clonazepam in the form of increased somnolence, which was discontinued. At that time, it was notedVPA level in ED was lower (< 50) than her typical baseline (< 60 - 80). - From last visit, now more awake after Clonazepam was discontinued. VPA is subtherapeutic. After consideration, will increase VPA slightly for safety margin given propensity for refractory status epilepticus. Will also provide Valtoco Nasal [place] to be used for breakthrough seizures in contrast to Post-visit Antiepileptics Levetiractam 1000 mg tab 2 - [address] 500 mg tab 1 - [address] 250 mg tab 1 - 1 (Added) Vimpat 200 mg tab 1 - 1 Valtoco 15 mg - 7.5 mg in each nostril for breakthrough seizures ?? Thiamine 100 mg 1 - 0 B12 1000 mcg 1 - 0 Folic 1 mg 1 - 0 - MRI Brain ordered for seizures, and in the setting of acute post-stroke concern ## Cervical stenosis ## Ataxia / Generalized weakness (Lt >> Rt) - Will send him for follow up Cervical spine MRI - Post stroke + Deconditioning The patient is on ASA 81 mg q Day Follow up in 4 months [S[facility] states [facility]] I personally spent 45 minutes on 03/12/2021 preparing to see the patient (e.g. reviewing chart, review of tests), obtaining and/or reviewing the separately obtained history, performing a medically necessary and appropriate examination and evaluation, counseling and educating the patient/family/caregiver, ordering medications, tests, or procedures, documenting in the patient record, and communicating results to the patient/family/caregiver. Ck Feliciano MD documented in this encounter Plan of Treatment Upcoming Encounters Date Type Department Care Team (Late st Contact Info) Description 12/05/2024 1:00 PM CDT Office Visit [facility] - Neurology [address] [place] [address], [place] [address] Sean Raymundo DO [address] [place] [address] [place] [address] documented as of this encounter Visit Diagnoses Diagnosis Partial 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, intractable, with status epilepticus (HCC)- Primary Cerebrovascular accident (CVA), unspecified mechanism (HCC) Cervical spinal stenosis Spinal stenosis in cervical region Folate deficiency Other B-complex deficiencies Vitamin B12 deficiency Other B-complex deficiencies Thiamine deficiency Other and unspecified manifestations of thiamine deficiency documented in this encounter Care Teams Heeler Machine Relationship Specialty Start Date End Date Daryl Barr MD PCP - General 09/16/20 03/07/22 Elizabeth Sullivan, RN Coupler 10/14/17 documented as of this encounter
--- OUTSIDE RECORDS SUMMARY | 2024-06-08 05:41 | XMS_ITS | Encounter Summary ---
Author Organization [facility] Health Address [address] [facility] [place] [address] Care Team Providers Care Business Project Manager Name Role Phone Elizabeth Sullivan RN Unavailable [phone] Daryl Barr MD Primary Care Provider [phone] Reason for Visit * Reason Comments Seizure Encounter Details Date Type Department Care Team (Late st Contact Info) Description 08/28/2021 11:00 AM CDT Office Visit [facility] [address] [facility], [facility] [place] [address] Ousmane Frederick MD [address] [place] [address] Stenosis of left carotid artery (Primary Dx) Social History Tobacco Use Types [...] Sign Reading Time Taken Comments Blood Pressure 114/75 08/28/2021 11:01 AM CDT Pulse 81 08/28/2021 11:01 AM CDT Temperature 36.5 ??C (97.7 ??F) 08/28/2021 11:01 AM C DT Respiratory Rate - - Oxygen Saturation 98% 08/28/2021 11:01 AM CDT Inhaled Oxygen Concentration - - Weight - - Height 180.3 cm (5' 11 ) 08/28/2021 11:01 AM CDT Body Mass Index - - [...] this encounter Patient Instructions * Patient Instructions* Ricci Juarez MD - 08/28/2021 11:43 AM CDT Dear Bi Tabor, Today you saw Dr. Ricci Juarez and Dr. Ousmane Frederick at the [facility]. Mr. Tabor has a symptomatic carotid stenosis . Per her sister (DPOA) they needed today's visit to go over his seizures and his AEDs. - Requested for pallet rectifier team to schedule pt with gen neuro or epilepsy clinic to address their needs. - Instructed to contact our office if he / his family decides for surgical treatment We would highly recommend using My Chart to communicate with us and to have access to your medical records. Instructions on how to sign up for My Chart can be found at: [email or web address]. Select the state of [place] and then select [facility]. If you have any questions regarding the plan discussed in clinic today please call [facility] office phone . Sincerely, MD Ousmane Arias M.D. Vascular & Interventional Neurology [facility] documented in this encounter Progress Notes * Ricci Juarez MD - 08/28/2021 11:19 AM CDT Vascular Neurology Clinic Visit Note Date of Encounter: 08/28/2021 Chief Complaint: to visit a neurologist for seizures meds HPI: 61 yo man with hx of L Internal carotid stenosis. Last visit 03/2021: Discussed symptomatic carotid stenosis and a recent CTA, cervical ultrasound and TCD. But patient and her family wasn't interested. Today visit: His sister wanted for him to see a general neurologist to go over his neurology medications and seizures and neuropathy. ?? CTA: 1. Segmental high-grade stenosis involving the proximal V1 segments of vertebral arteries bilaterally. Multifocal at least moderate stenosis within the V2 segment of left vertebral artery which is occluded at the V3 V4 junction. 2. Approximately 55-60% diameter stenosis within the proximal left ICA bulb. 3. Focal at least moderate stenosis within the proximal basilar artery. 4. Multifocal atherosclerotic disease or stenosis involving the bilateral cavernous and proximal supraclinoid ICAs. 5. No acute intracranial large artery occlusion. ?? Review of Systems: A 10-pt ROS was performed. Pertinent negatives include no speech difficulty, no visual disturbances, no vertigo, no weakness, no sensory disturbance, and no difficulty with gait. All other systems were reviewed and negative. Allergies: No Known Allergies Home Medications: Current Outpatient Medications Medication Sig [...] 1 mg by mouth once daily ??? diazePAM (VALTOCO 15 MG DOSE) 15 MG (2 x 7.5 MG/0.1ML) nasal spray Gilbert 0.2 mL into the nose as needed for Seizures (For breakthrough seizure to prevent clustering) ??? divalproex DR (DEPAKOTE) 250 MG tablet Take 1 (one) tablet by mouth 2 times daily [Take with 250 mg tablets, making 750 mg twice a day] ??? divalproex DR (DEPAKOTE) 500 MG tablet Take 1 (one) tablet by mouth 2 times daily [Take with 250 mg tablets, making 750 mg twice a day] ??? folic acid (FOLVITE) 1 MG tablet Take 1 (one) tablet [...] (VITAMIN B-1) 100 MG tablet Take 1 (one) tablet by mouth once daily No current facility-administered medications for this visit. PMH: Past Medical History: Diagnosis Date ??? CVA (cerebral vascular accident) ??? HTN (hypertension) ??? Seizure Social History: Social History Socioeconomic History ??? [...] Resource Strain: Not on file Food Insecurity: Not on file Transportation Needs: Not on file Physical Activity: Not on file Stress: Not on file Social Connections: Not on file Intimate Partner Violence: Not on file Housing Stability: Not on file Objective: Vitals: 08/28/21 1101 BP: 114/75 Pulse: 81 Temp: 97.7 ??F (36.5 ??C) SpO2: 98% Height: 5' 11 (1.803 m) Neurological Examination: - Mental status: Patient is alert and oriented to time, place, person and situation. - Speech: Fluent, with normal naming, comprehension, articulation and repetition - CN II-XII: Visual dahl intact to confrontation, PERRL (4->2), EOMI, facial sensation intact. ?? Strength: ?RUE?4+/5?LUE?4/5 ?RLE?4+/5?LLE?4/5 - Sensory: intact light touch. Romberg sign absent. - Reflexes: No clonus, bouchra, cross adductor. Babinski negative. - Coordination/ fine movement: normal finger to nose but slow - Gait: on wheelchair Assessment and Plan: 61 yo man with symptomatic carotid stenosis . Per her sister (NISSA) they needed today's visit to goover his seizures and his AEDs. - Requested for pallet rectifier team to schedule pt with gen neuro or epilepsy clinic to address their needs. - Instructed to contact our office if he / his family decides for surgical treatment Patient was seen and discussed with staff vascular neurologist, Dr. Mis uJarez MD Vascular Neurology Fellow Associated attestation - Ousmane Frederick MD - 09/03/2021 9:29 AM CDT Images from the original note were not included. I saw and examined the patient with the Fellow. I have verified all details of the Fellow's note and agree with the Fellow's documentation with additions and modifications as listed below. I personally participated in reviewing the chart, review of tests, obtaining and/or reviewing the separately obtained history, performing a medically necessary and appropriate examination and evaluation, counseling and educating the patient/family/caregiver, ordering medications, tests, or procedures, documenting in the patient record, and communicating results to the patient/family/caregiver. He has a carotid stenosis and this is amenable to revascularization. However, his surrogate decision maker of highest priority (sister) who is here with him has elected to focus on medical optimization of his antiepileptics first. I agree with her decision in terms of medical priorities. I read with him, his sister and niece the notes from prior encounters and I think this had a therapeutic effect. The in person visit has also provided a better platform for communication. We will facilitate an appointment with the Epilepsy Clinic and continue to follow his carotid stenosis. Ousmane Frederick MD documented in this encounter Plan of Treatment Upcoming Encounters Date Type Department Care Team (Late st Contact Info) Description 12/05/2024 1:00 PM CDT Office Visit [facility] - Neurology [address] [place] [address], [place] [address] Sean Raymundo, [address] [place] [address] [place] [address] documented as of this encounter Visit Diagnoses Diagnosis Stenosis of left carotid artery- Primary Occlusion and stenosis of carotid artery without mention of cerebral infarction documented in this encounter Care Teams Business Project Manager Relationship Specialty Start Date End Date Daryl Barr MD PCP - General 09/16/20 03/07/22 Elizabeth Sullivan, RN Patient Flow Coordinator 10/14/17 documented as of this encounter
--- OUTSIDE RECORDS SUMMARY | 2024-06-08 05:41 | XMS_ITS | Encounter Summary ---
Author Organization [facility] Health Address [address] [place] [address] Care Team Providers Care Decorating And Assembly Supervisor Name Role Phone Elizabeth Sullivan RN Unavailable [phone] Daryl Barr MD Primary Care Provider [phone] Reason for Visit * Reason Comments Seizure [place] from [place] for [place] wo witnessed seizures today. Pt has hx of stroke and seizures. Compliant with meds at [place]. Pt arrives A&Ox4. GCS15. Encounter Details Date Type Department Care Team (Late st Contact Info) Description 05/01/2021 9:37 PM DIRECTOR CRITICAL CARE - 05/02/2021 6:03 AM [facility] Emergency [facility] EMERGENCY DEPARTMENT [address] [place] [address] Leonardo Hanson MD [address] [place] [address] Altered mental status, unspecified altered mental status type; Seizure (HCC) Discharge Disposition: Home or Self Care [...] Sign Reading Time Taken Comments Blood Pressure 142/85 05/02/2021 2:32 AM DIRECTOR CRITICAL CARE Pulse 79 05/02/2021 2:32 AM DIRECTOR CRITICAL CARE Temperature 36.6 ??C (97.9 ??F) 05/02/2021 5:24 AM CS T Respiratory Rate 14 05/02/2021 2:32 AM DIRECTOR CRITICAL CARE Oxygen Saturation 97% 05/02/2021 2:32 AM DIRECTOR CRITICAL CARE Inhaled Oxygen Concentration - - Weight 76.2 kg (168 lb) 05/01/2021 10:36 PM DIRECTOR CRITICAL CARE Height 180.3 cm (5' 11 ) 05/01/2021 10:36 PM DIRECTOR CRITICAL CARE Body Mass Index 23.43 05/01/2021 10:36 PM DIRECTOR CRITICAL CARE documented in this encounter Functional Status Functional [...] Yes 08/18/2020 documented as of this encounter Discharge Instructions * Discharge Instructions* Jeanne Palmer MD - 05/02/2021 3:29 AM DIRECTOR CRITICAL CARE Please resume your depakote and keppra at their usual doses. You likely had a seizure because your levels were subtherapeutic. We gave you one dose on the ER. [facility] * Attachments The following attachments cannot be sent through Care Everywhere. * Recurrent Seizures in Adults ([employer]) (Palest[place]) documented in this encounter Medications at Time [...] localized onset, intractable, with status epilepticus (HCC) [place] 0.2 mL into the nose as needed [...] 03/12/2021 12/09/2021 documented as of this encounter ED Notes * Pat Beckett RN - 05/02/2021 5:18 AM CST [facility] trip # [phone] ETA [id number] [facility] * Pat Beckett RN - 05/02/2021 5:11 AM CST Discharge instructions reviewed with nurse Juan Diego at [facility]. Patient verbalized understanding and ambulated on own to exit, gait steady. [facility] * Trista Flores RN - 05/02/2021 1:38 AM CST Pt unable to stay awake long enough to hold conversation, intermittently falling asleep while this RN was attempting to administer PO medication. Holding medication [facility] * Leonardo Hanson MD - 05/01/2021 10:42 PM CST ED Attending Note History: Bi Tabor is a 61 year old male with PMHx of CVA, HTN, and seizures who is presenting to the ED s/p seizure. Patient here from nursing facility after two witnessed seizures. Patient has been here multiple times for same in the past. No reported falls or head trauma. Patient has had multiple medication changes recently. Currently complaining of headache but otherwise denies any complaints. He thinks he had a seizure today as well. Denies abdominal pain, N/V, fever, chills, cough, chest pain, or shortness of breath. Patient has had multiple admissions for seizure workups in the past. Other PMHx as listed below. No other questions or complaints at this time. Past Medical History: Diagnosis Date ??? CVA (cerebral vascular accident) ??? HTN (hypertension) ??? Seizure No past surgical history on file. Social [...] file Review of Systems: Review of Systems Constitutional: Negative for fever. HENT: Negative for congestion and sore throat. Eyes: Negative for blurred vision and double vision. Respiratory: Negative for cough and shortness of breath. Cardiovascular: Negative for chest pain and palpitations. Gastrointestinal: Negative for abdominal pain, diarrhea, nausea and vomiting. Genitourinary: Negative for dysuria. Musculoskeletal: Negative for back pain and neck pain. Neurological: Positive for seizures and headaches. Negative for dizziness and weakness. Psychiatric/Behavioral: Negative for suicidal ideas. Patient Vitals for the past 6 hrs: Pulse Resp BP 05/02/21 0232 79 14 142/85 05/02/21 0217 68 14 114/78 05/02/21 0202 70 15 106/76 05/02/21 0147 65 15 111/75 05/02/21 0132 68 15 110/72 05/02/21 0117 68 14 105/76 05/02/21 0102 65 14 110/77 05/02/21 0047 67 14 107/77 05/02/21 0032 73 11 103/68 05/02/21 0012 72 14 101/77 05/01/21 2227 89 11 -- Exam: Physical Exam Constitutional: General: He is not in acute distress. Appearance: He is well-developed. He is not diaphoretic. HENT: Head: Normocephalic and atraumatic. Eyes: Extraocular Movements: Extraocular movements intact. Pupils: Pupils are equal, round, and reactive to light. Cardiovascular: Rate and Rhythm: Normal rate and regular rhythm. Pulses: Normal pulses. Heart sounds: Normal heart sounds. Pulmonary: Effort: Pulmonary effort is normal. Breath sounds: Normal breath sounds. Abdominal: General: Bowel sounds are normal. Palpations: Abdomen is soft. Tenderness: There is no abdominal tenderness. Musculoskeletal: General: No deformity. Normal range of motion. Cervical back: Normal range of motion and neck supple. Skin: General: Skin is warm and dry. Neurological: Mental Status: He is alert and oriented to person, place, and time. Mental status is at baseline. Sensory: No sensory deficit. Motor: No weakness. Psychiatric: Mood and Affect: Mood normal. Behavior: Behavior normal. Medical Decision Makin. Seizure DDX: Breakthrough seizure vs medication non-adherence vs infection vs metabolic vs other Plan: Labs, EKG, CXR, CT head and C-spine, urine studies, seizure precautions, possible neurology consult Results: Labs Reviewed CBC W AUTO DIFFERENTIAL - Abnormal; Notable for the following components: Result Value Eosinophils % 6.1 (*) All other components within normal limits COMPREHENSIVE METABOLIC PANEL - Abnormal; Notable for the following components: Chloride 108 (*) All other components within normal limits VALPROIC ACID LEVEL - Abnormal; Notable for the following components: Valproic Acid Total 42 (*) All other components within normal limits GLUCOSE - POINT OF CARE - Abnormal; Notable for the following components: Glucose WB/POC 123 (*) All other components within normal limits LACTIC ACID BLOOD - Normal LEVETIRACETAM LEVEL URINE DRUG SCREEN IMMUNOASSAY CT HEAD WO CONTRAST (Results Pending) CT CERVICAL SPINE WO CONTRAST (Results Pending) XR CHEST 1VW PORTABLE (Results Pending) EKG Interpretation: Interpreted by me: Date: 05/01/21 Time: 2204 R&R: NSR with a ventricular rate of 86 bpm Additional findings: No ST elevation ED course: The patient's Oxygen Saturation Monitor was interpreted by me. The reading was 100%. The patient was on RA at the time of the reading. This is interpreted as normal. 4:23 AM- Labs reviewed and grossly unremarkable aside from low valproate level. CT and XR unremarkable. Will load with keppra and valproic acid, discharge back to nursing facility 4:24 AM: I have reviewed his diagnostic findings [...] Encounter ??? CT HEAD WO CONTRAST ??? CT CERVICAL SPINE WO CONTRAST ??? XR CHEST 1VW PORTABLE ??? CBC W AUTO DIFFERENTIAL ??? COMPREHENSIVE METABOLIC PANEL ??? LACTIC ACID BLOOD ??? VALPROIC ACID LEVEL ??? LEVETIRACETAM LEVEL ??? URINE DRUG SCREEN IMMUNOASSAY ??? EKG 12-LEAD ??? DISCONTD: divalproex DR (Depakote) tablet 750 mg ??? DISCONTD: levETIRAcetam (Keppra) tablet 2,000 mg ??? valproic acid (Depakene) solution 750 mg ??? levETIRAcetam (Keppra) 2,000 mg in 0.9% NaCl IV 270 mL IVPB Medications valproic acid (Depakene) solution 750 mg (has no administration in time range) levETIRAcetam (Keppra) 2,000 mg in 0.9% NaCl IV 270 mL IVPB (has no administration in time range) Clinical Impression: 1. Altered mental status, unspecified altered mental status type 2. Seizure Disposition: Discharge By signing my name below, I, Shane Gregory, attest that this documentation has been prepared under the direction and in the presence of Dr. Hanson. Signed: Laisha Lacy. I, Dr. Hanson, personally performed the services described in this documentation. All medical record entries made by the scribe were at my direction and in my presence. I have reviewed the chart and agree that the record reflects my personal performance and is accurate and complete. [facility] * Karime Hawkins RN - 05/01/2021 9:37 PM CST Bed: AC24 Expected date: Expected time: Means of arrival: Comments: [id number]: [id number] hx seizures, seizure today, multiple meds given [facility] documented in this encounter Plan of Treatment Upcoming Encounters Date Type Department Care Team (Late st Contact Info) Description 12/05/2024 1:00 PM CDT Office Visit [facility] - Neurology [address] [place] [address] Sean Raymundo, DO [address] DIV [place] [id number] documented as of this encounter Procedures Procedure Name Priority Date/Time Associated Diagnosis Comments CARDIAC EKG ORDER 05/05/2021 3:1 7 PM DIRECTOR CRITICAL CARE CARDIAC EKG ORDER 05/05/2021 1:1 7 PM DIRECTOR CRITICAL CARE XR CHEST 1VW PORTABLE STAT 05/01/2021 11:12 PM DIRECTOR CRITICAL CARE Seizure (HCC) CT CERVICAL SPINE WO CONTRAST STAT 05/01/2021 10:19 PM DIRECTOR CRITICAL CARE Altered mental status, unspecified altered mental status type CT HEAD WO CONTRAST STAT 05/01/2021 1 0:19 PM DIRECTOR CRITICAL CARE Altered mental status, unspecified altered mental status type EKG 12-LEAD Routine 05/01/2021 10:04 PM DIRECTOR CRITICAL CARE Altered mental status, unspecified altered mental status type LEVETIRACETAM LEVEL STAT 05/01/2021 9 :59 PM DIRECTOR CRITICAL CARE CBC W AUTO DIFFERENTIAL STAT 05/01/2021 9:59 PM DIRECTOR CRITICAL CARE COMPREHENSIVE METABOLIC PANEL STAT 05/01/2021 9:59 PM DIRECTOR CRITICAL CARE LACTIC ACID BLOOD STAT 05/01/2021 9:5 9 PM DIRECTOR CRITICAL CARE VALPROIC ACID LEVEL STAT 05/01/2021 9 :59 PM DIRECTOR CRITICAL CARE GLUCOSE - POINT OF CARE Routine 05/01/2021 9:48 PM DIRECTOR CRITICAL CARE documented in this encounter Results * CARDIAC EKG ORDER (05/05/2021 3:17 PM DIRECTOR CRITICAL CARE) Narrative 05/05/2021 3:17 PM DIRECTOR CRITICAL CARE Ordered by an unspecified provider. Scanned Document CARDIAC SERVICES ORD ERABLES * CARDIAC EKG ORDER (05/05/2021 1:17 PM DIRECTOR CRITICAL CARE) Narrative 05/05/2021 1:17 PM DIRECTOR CRITICAL CARE Ordered by an unspecified provider. Scanned Document CARDIAC SERVICES ORD ERABLES * XR CHEST 1VW PORTABLE (05/01/2021 11:12 PM DIRECTOR CRITICAL CARE) Anatomical Region Laterality Modality Chest Radiographic Cynthia ging 05/02/2021 1:36 AM DIRECTOR CRITICAL CARE Impressions 05/03/2021 6:20 AM DIRECTOR CRITICAL CARE IMPRESSION: No acute radiographic findings in the chest. Report dictated by Pablo Yañez DO (radiology scheduler). This report was approved ??by Pablo Yañez ?? on 05/03/2021 6:[address] WOJCIECH Thomason have personally reviewed and interpreted this examination/study. This report was electronically signed by WOJCIECH NEIL ??on 05/03/2021 6:20 AM . Narrative 05/03/2021 6:20 AM DIRECTOR CRITICAL CARE EXAMINATION: XR CHEST 1VW PORTABLE, 05/01/2021 11:13 PM HISTORY: R56.9: Seizure COMPARISON: 08/19/2020 FINDINGS: There is no focal consolidation, pleural effusion, or pneumothorax. The cardiomediastinal silhouette is normal. Procedure Note Wojciech Neil MD - 05/03/2021 EXAMINATION: XR CHEST 1VW PORTABLE, 05/01/2021 11:13 PM HISTORY: R56.9: Seizure COMPARISON: 08/19/2020 FINDINGS: There is no focal consolidation, pleural effusion, or pneumothorax. The cardiomediastinal silhouette is normal. IMPRESSION: No acute radiographic findings in the chest. Report dictated by Pablo Yañez DO (radiology scheduler). This report was approved by Pablo Yañez on 05/03/2021 6:[address] WOJCIECH Thomason have personally reviewed and interpreted this examination/study. This report was electronically signed by WOJCIECH NEIL on05/03/2021 6:20 AM . Leonardo Hanson MD DIAGNOSTIC IMAGING O RDERABLES * CT CERVICAL SPINE WO CONTRAST (05/01/2021 10:19 PM DIRECTOR CRITICAL CARE) Anatomical Region Laterality Modality Spine Computed Tomogra phy 05/01/2021 10:2 9 PM DIRECTOR CRITICAL CARE Impressions 05/02/2021 6:55 AM DIRECTOR CRITICAL CARE IMPRESSION: 1.No acute intracranial hemorrhage. 2.No evidence of acute fracture in the cervical spine. 3.Advanced degenerative disc disease at C5-C6 and C6-C7. Report dictated by Pablo Yañez DO (radiology scheduler) Dr. LAUREN Thomason have personally reviewed and interpreted this examination/study. This report was electronically signed by LAUREN MILLER ??on 05/02/2021 6:55 AM . Narrative 05/02/2021 6:55 AM DIRECTOR CRITICAL CARE EXAMINATION: 1. Computed tomography (CT) of the head without contrast 2. CT of the cervical spine without contrast HISTORY: R41.82: Altered mental status, unspecified altered mental status type TECHNIQUE: CT of the head and cervical spine were performed without contrast according to standard protocol. COMPARISON: CT brain stroke dated 02/25/2021 FINDINGS: Head: Chronic left lamina papyracea defect. No acute intracranial hemorrhage is identified. Old right occipital and medial temporal lobe infarction with encephalomalacia and gliosis. Associated right ventricular passive dilation. There is generalized supratentorial and infratentorial atrophy with passive dilation of ventricles. The basal cisterns are patent. No mass effect or midline shift is seen. Abnormal low densities in the supratentorial white matter are nonspecific but statistically most likely related to small vessel ischemia. Atherosclerosis. Near complete opacification of the right maxillary sinus. Mild mucosal thickening of the ethmoid sinuses and left frontal sinus. Cervical spine: Emphysema and pleural parenchymal scarring in the visualized upper lungs. Trace anterolisthesis at C4-C5. Advanced degenerative disc disease at C5-C6 and C6-C7. Neural foraminal stenosis asymmetric on the left at C2-C3. Bilateral neural foraminal stenosis at C5-C6. Neural foraminal stenosis asymmetric on the left at C6-C7. Retrolisthesis of C5 on C6 and C6 on C7. ? Other than middle atlantoaxial joint osteoarthritis, the craniocervical junction appears normal. ? Severe degenerative spinal canal stenosis at the level of C6-7 secondary to C6 on 7 retrolisthesis and posterior disc bulge (series 5, image 191). In the sagittal plane spinal canal measures 5.7 mm at C5-6. Multilevel facet arthropathy most prominent on the left at C2-C3. Multilevel uncovertebral hypertrophy. ? Gentle kyphosis. No abnormal thickening of the prevertebral soft tissues Procedure Note Lauren Miller MD - 05/02/2021 EXAMINATION: 1. Computed tomography (CT) of the head without contrast 2. CT of the cervical spine without contrast HISTORY: R41.82: Altered mental status, unspecified altered mentalstatus type TECHNIQUE: CT of the head and cervical spine were performed without contrast according to standard protocol. COMPARISON: CT brain stroke dated 02/25/2021 FINDINGS: Head: Chronic left lamina papyracea defect. No acute intracranial hemorrhage is identified. Old right occipital and medial temporal lobe infarction with encephalomalacia and gliosis. Associated right ventricular passive dilation. There is generalized supratentorial and infratentorial atrophy with passive dilation of ventricles. The basal cisterns are patent. No mass effect or midlineshift is seen. Abnormal low densities in the supratentorial white matter are nonspecific but statistically most likely related to small vessel ischemia. Atherosclerosis. Near complete opacification of the right maxillary sinus. Mild mucosal thickening of the ethmoid sinuses and left frontal sinus. Cervical spine: Emphysema and pleural parenchymal scarring in the visualized upper lungs. Trace anterolisthesis at C4-C5. Advanced degenerative disc disease at C5-C6 and C6-C7. Neural foraminal stenosis asymmetric on the left at C2-C3. Bilateral neural foraminal stenosis at C5-C6. Neural foraminal stenosis asymmetric on the left at C6-C7. Retrolisthesis of C5 on C6 and C6 on C7. Other than middle atlantoaxial joint osteoarthritis, the craniocervical junction appears normal. Severe degenerative spinal canal stenosis at the level ofC6-7 secondary to C6 on 7 retrolisthesis and posterior disc bulge (series 5, image 191). In the sagittal plane spinal canal measures 5.7 mm at C5-6. Multilevel facet arthropathy most prominent on the left at C2-C3. Multilevel uncovertebral hypertrophy. Gentle kyphosis. No abnormal thickening of the prevertebral soft tissues IMPRESSION: 1.No acute intracranial hemorrhage. 2.No evidence of acute fracture in the cervical spine. 3.Advanced degenerative disc disease at C5-C6 and C6-C7. Report dictated by Pablo Yañez DO (radiology scheduler) IDr. LAUREN have personally reviewed and interpreted this examination/study. This report was electronically signed by LAUREN MILLER on 05/02/2021 6:55 AM . Kanika Hall MD CT ORDERABLES * CT HEAD WO CONTRAST (05/01/2021 10:19 PM DIRECTOR CRITICAL CARE) Anatomical Region Laterality Modality Head Computed Tomogra phy 05/01/2021 10:2 9 PM DIRECTOR CRITICAL CARE Impressions 05/02/2021 6:55 AM DIRECTOR CRITICAL CARE IMPRESSION: 1.No acute intracranial hemorrhage. 2.No evidence of acute fracture in the cervical spine. 3.Advanced degenerative disc disease at C5-C6 and C6-C7. Report dictated by Pablo Yañez DO (radiology scheduler) Dr. LAUREN Thomason have personally reviewed and interpreted this examination/study. This report was electronically signed by LAUREN MILLER ??on 05/02/2021 6:55 AM . Narrative 05/02/2021 6:55 AM DIRECTOR CRITICAL CARE EXAMINATION: 1. Computed tomography (CT) of the head without contrast 2. CT of the cervical spine without contrast HISTORY: R41.82: Altered mental status, unspecified altered mental status type TECHNIQUE: CT of the head and cervical spine were performed without contrast according to standard protocol. COMPARISON: CT brain stroke dated 02/25/2021 FINDINGS: Head: Chronic left lamina papyracea defect. No acute intracranial hemorrhage is identified. Old right occipital and medial temporal lobe infarction with encephalomalacia and gliosis. Associated right ventricular passive dilation. There is generalized supratentorial and infratentorial atrophy with passive dilation of ventricles. The basal cisterns are patent. No mass effect or midline shift is seen. Abnormal low densities in the supratentorial white matter are nonspecific but statistically most likely related to small vessel ischemia. Atherosclerosis. Near complete opacification of the right maxillary sinus. Mild mucosal thickening of the ethmoid sinuses and left frontal sinus. Cervical spine: Emphysema and pleural parenchymal scarring in the visualized upper lungs. Trace anterolisthesis at C4-C5. Advanced degenerative disc disease at C5-C6 and C6-C7. Neural foraminal stenosis asymmetric on the left at C2-C3. Bilateral neural foraminal stenosis at C5-C6. Neural foraminal stenosis asymmetric on the left at C6-C7. Retrolisthesis of C5 on C6 and C6 on C7. ? Other than middle atlantoaxial joint osteoarthritis, the craniocervical junction appears normal. ? Severe degenerative spinal canal stenosis at the level of C6-7 secondary to C6 on 7 retrolisthesis and posterior disc bulge (series 5, image 191). In the sagittal plane spinal canal measures 5.7 mm at C5-6. Multilevel facet arthropathy most prominent on the left at C2-C3. Multilevel uncovertebral hypertrophy. ? Gentle kyphosis. No abnormal thickening of the prevertebral soft tissues Procedure Note Lauren Miller MD - 05/02/2021 EXAMINATION: 1. Computed tomography (CT) of the head without contrast 2. CT of the cervical spine without contrast HISTORY: R41.82: Altered mental status, unspecified altered mentalstatus type TECHNIQUE: CT of the head and cervical spine were performed without contrast according to standard protocol. COMPARISON: CT brain stroke dated 02/25/2021 FINDINGS: Head: Chronic left lamina papyracea defect. No acute intracranial hemorrhage is identified. Old right occipital and medial temporal lobe infarction with encephalomalacia and gliosis. Associated right ventricular passive dilation. There is generalized supratentorial and infratentorial atrophy with passive dilation of ventricles. The basal cisterns are patent. No mass effect or midlineshift is seen. Abnormal low densities in the supratentorial white matter are nonspecific but statistically most likely related to small vessel ischemia. Atherosclerosis. Near complete opacification of the right maxillary sinus. Mild mucosal thickening of the ethmoid sinuses and left frontal sinus. Cervical spine: Emphysema and pleural parenchymal scarring in the visualized upper lungs. Trace anterolisthesis at C4-C5. Advanced degenerative disc disease at C5-C6 and C6-C7. Neural foraminal stenosis asymmetric on the left at C2-C3. Bilateral neural foraminal stenosis at C5-C6. Neural foraminal stenosis asymmetric on the left at C6-C7. Retrolisthesis of C5 on C6 and C6 on C7. Other than middle atlantoaxial joint osteoarthritis, the craniocervical junction appears normal. Severe degenerative spinal canal stenosis at the level ofC6-7 secondary to C6 on 7 retrolisthesis and posterior disc bulge (series 5, image 191). In the sagittal plane spinal canal measures 5.7 mm at C5-6. Multilevel facet arthropathy most prominent on the left at C2-C3. Multilevel uncovertebral hypertrophy. Gentle kyphosis. No abnormal thickening of the prevertebral soft tissues IMPRESSION: 1.No acute intracranial hemorrhage. 2.No evidence of acute fracture in the cervical spine. 3.Advanced degenerative disc disease at C5-C6 and C6-C7. Report dictated by Pablo Yañez DO (radiology scheduler) I, Dr. LAUREN MILLER have personally reviewed and interpreted this examination/study. This report was electronically signed by LAUREN MILLER on 05/02/2021 6:55 AM . Kanika Hall MD CT ORDERABLES * EKG 12-LEAD (05/01/2021 10:04 PM DIRECTOR CRITICAL CARE) Ventricular Rate 86 BPM [facility] Atrial Rate 86 BPM [facility] P-R Interval 162 ms [facility] QRS Duration ms 76 ms [facility] Q-T Interval ms 348 ms [facility]USE QTC Calculation (Bezet) 416 ms [facility] Calculated P [place] 75 degrees [facility] Calculated R [place] 26 degrees [facility] Calculated T [place] 79 degrees [facility] Interpretation EKG NORMAL SINUS RHYTHM 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) ABNORMAL ECG WHEN COMPARED WITH ECG OF 25-FEB-2021 11:38, SERIAL CHANGES OF ANTEROSEPTAL INFARCT PRESENT HR HAS INCREASED BY 21 BPM Confirmed by Tio Curry ([id number]) on 05/05/2021 8:26:26 PM [facility] 05/01/2021 10:0 4 PM DIRECTOR CRITICAL CARE 05/05/2021 8:26 PM DIRECTOR CRITICAL CARE Kanika Hall MD ECG ORDERABLES Performing Organization Address City/[facility]/ZIP Co de Phone Number [facility] MUSE * (ABNORMAL) LEVETIRACETAM LEVEL (05/01/2021 9:59 PM DIRECTOR CRITICAL CARE) Levetiracetam 4(L) 12 - 46 ug/mL 05/03/2021 9:40 PM DIRECTOR CRITICAL CARE [facility] ([facility]) Comment: INTERPRETIVE INFORMATION: Keppra (Levetiracetam) Therapeutic Range: ??12-46 ug/mL ?Toxic: ??Not well Established Pharmacokinetics of levetiracetam are affected by renal function. Adverse effects may include somnolence, weakness, headache and vomiting. This levetiracetam (Keppra) immunoassay uses the [employer] reagents, which has known cross-reactivity with the drug brivaracetam (Briviact) and may report inaccurate results. Patients transitioning from levetiracetam to brivaracetam or those who are using both medications should not monitor drug concentrations with the [employer] assay. These patients should be monitored using a validated chromatographic methodology that distinguishes between drugs to determine drug concentrations. Performed By: [employer] [address] [place] [address] Consumer Product Advisor: Philly Hope MD Blood BLOOD SPECIMEN / Unknown Venipuncture / Unknown 05/01/2021 9:59 PM DIRECTOR CRITICAL CARE 05/01/2021 10:07 PM DIRECTOR CRITICAL CARE Kanika Hall MD LAB - THERAPEUTIC DR DIAZ MONITORING ORDERABLES [facility] ([facility]) [address] * (ABNORMAL) VALPROIC ACID LEVEL (05/01/2021 9:59 PM DIRECTOR CRITICAL CARE) Valproic Acid Total 42(L) 50 - 100 ug/mL 05/01/2021 10:34 PM DIRECTOR CRITICAL CARE [facility] Blood BLOOD SPECIMEN / Unknown Venipuncture / Unknown 05/01/2021 9:59 PM DIRECTOR CRITICAL CARE 05/01/2021 10:08 PM DIRECTOR CRITICAL CARE Kanika Hall MD LAB - CHEMISTRY [facility] [address] [place] [address], [place] [phone] * LACTIC ACID BLOOD (05/01/2021 9:59 PM DIRECTOR CRITICAL CARE) Pathologist [facility] Lactic Acid-Stat 1.3 <=2.0 mmol/L 05/01/2021 10:30 PM [facility] Blood BLOOD SPECIMEN / Unknown Venipuncture / Unknown 05/01/2021 9:59 PM DIRECTOR CRITICAL CARE 05/01/2021 10:08 PM DIRECTOR CRITICAL CARE Kanika Hall MD LAB - CHEMISTRY [facility] [address] [address], [place] [phone] * (ABNORMAL) COMPREHENSIVE METABOLIC PANEL (05/01/2021 9:59 PM DIRECTOR CRITICAL CARE) [facility] BUN 14 7 - 26 mg/dL 05/01/2021 10:34 PM [facility] Creatinine 0.79 0.71 - 1.16 mg/dL 05/01/2021 10:34 PM [facility] Sodium 143 136 - 145 mmol/L 05/01/2021 10:34 PM [facility] Potassium 4.0 3.5 - 4.5 mmol/L 05/01/2021 10:34 PM [facility] Chloride 108(H) 98 - 107 mmol/L 05/01/2021 10:34 PM [facility] CO2 24 22 - 29 mmol/L 05/01/2021 10:34 PM [facility] Glucose 102 70 - 115 mg/dL 05/01/2021 10:34 PM [facility] Calcium 9.4 8.4 - 10.2 mg/dL 05/01/2021 10:34 PM [facility] Protein Total 6.9 6.0 - 8.3 g/dL 05/01/2021 10:34 PM [facility] Albumin 3.7 3.4 - 5.0 g/dL 05/01/2021 10:34 PM [facility] Bilirubin Total 0.5 0.2 - 1.2 mg/dL 05/01/2021 10:34 PM [facility] Alkaline Phosphatase 66 40 - 150 U/L 05/01/2021 10:34 PM [facility] ALT 10 5 - 55 U/L 05/01/2021 10:34 PM [facility] AST 19 5 - 34 U/L 05/01/2021 10:34 PM [facility] Anion Gap 15 8 - 18 05/01/2021 10:34 PM [facility] BUN/Creatinine Ratio 18 7 - 23 05/01/2021 10:34 PM [facility] Osmolality Calculated 297 270 - 300 mOsm/kg 05/01/2021 10:34 PM [facility] Albumin/Globulin Ratio 1.2 1.1 - 2.3 05/01/2021 10:34 PM [facility] eGFR by CKD-EPI >90 >=90 mL/min/1.7 3 m2 05/01/2021 10:34 PM [facility] Blood BLOOD SPECIMEN / Unknown Venipuncture / Unknown 05/01/2021 9:59 PM DIRECTOR CRITICAL CARE 05/01/2021 10:08 PM [facility] Kanika Hall MD LAB - CHEMISTRY [facility] Organization Address [facility]/State/[facility] Co de Phone Number [facility] [address] [place] [address], [facility] [phone] * (ABNORMAL) CBC W AUTO DIFFERENTIAL (05/01/2021 9:59 PM DIRECTOR CRITICAL CARE) WBC 5.4 3.5 - 10.5 10? 3 /uL 05/01/2021 10:22 PM [facility] RBC 4.30 4.30 - 5.70 10? 6 /uL 05/01/2021 10:22 PM [facility] Hemoglobin 13.5 12.0 - 17.6 g/dL 05/01/2021 10:22 PM [facility] Hematocrit 40.5 35.2 - 51.7 % 05/01/2021 10:22 PM [facility] MCV 94.2 80.7 - 98.3 fL 05/01/2021 10:22 PM [facility] MCH 31.4 26.7 - 34.0 pg 05/01/2021 10:22 PM [facility] MCHC 33.3 30.8 - 35.9 g/dL 05/01/2021 10:22 PM [facility] Platelet Count 164 150 - 400 10? 3 /uL 05/01/2021 10:22 PM [facility] RDW-SD 40.5 36.0 - 50.0 fL 05/01/2021 10:22 PM [facility] RDW-CV 11.8 11.2 - 14.8 % 05/01/2021 10:22 PM [facility] MPV 12.0 9.4 - 12.9 fL 05/01/2021 10:22 PM [facility] nRBC Absolute 0.00 0 10? 3 /uL 05/01/2021 10:22 PM [facility] nRBC Auto 0.0 0 /100 WBC 05/01/2021 10:22 PM [facility] Neutrophils % 50.4 35.0 - 70.0 % 05/01/2021 10:22 PM [facility] Lymphocytes % 36.1 20.0 - 43.0 % 05/01/2021 10:22 PM [facility] Monocytes % 7.2 5.0 - 13.0 % 05/01/2021 10:22 PM [facility] Eosinophils % 6.1(H) 0.0 - 6.0 % 05/01/2021 10:22 PM [facility] Basophil % 0.2 0.0 - 2.0 % 05/01/2021 10:22 PM [facility] Neutrophils Absolute 2.7 1.6 - 7.0 10? 3 /uL 05/01/2021 10:22 PM [facility] Lymphocyte Absolute 2.0 1.1 - 3.9 10? 3 /uL 05/01/2021 10:22 PM [facility] Monocytes Absolute 0.39 0.26 - 1.07 10? 3 /uL 05/01/2021 10:22 PM [facility] Eosinophils Absolute 0.33 0.00 - 0.47 10? 3 /uL 05/01/2021 10:22 PM [facility] Basophils Absolute 0.01 0.00 - 0.08 10? 3 /uL 05/01/2021 10:22 PM [facility] Immature Granulocytes % 0.0 0.0 - 1.0 % 05/01/2021 10:22 PM [facility] Immature Granulocytes Absolute 0.00 05/01/2021 10:22 PM [facility] Blood BLOOD SPECIMEN / Unknown Venipuncture / Unknown 05/01/2021 9:59 PM DIRECTOR CRITICAL CARE 05/01/2021 10:08 PM DIRECTOR CRITICAL CARE Kanika Hall MD LAB - HEMATOLOGY ORD ERABLES Performing Organization Address City/[facility]/ZIP Co de Phone Number [address] [address], [facility] [phone] * (ABNORMAL) GLUCOSE - POINT OF CARE (05/01/2021 9:48 PM DIRECTOR CRITICAL CARE) Pathologist [facility] Glucose WB/POC 123(H) 70 - 115 mg/dL 05/01/2021 9:49 PM [facility] Specimen Type Cap Fingerstick 2020 9:49 PM [facility] Blood BLOOD SPECIMEN / Unknown 05/01/2021 9:48 PM DIRECTOR CRITICAL CARE 05/01/2021 9:49 PM DIRECTOR CRITICAL CARE Provider Unknown LAB - POINT OF CARE ORDERABLES Performing Organization Address [facility]/State/ZIP Co de Phone Number [address] [address], [place] [phone] documented in this encounter Visit Diagnoses Diagnosis Altered mental status, unspecified altered mental status type Seizure (HCC) Other convulsions Nonintractable epilepsy without status epilepticus, unspecified epilepsy type (HCC) documented in this encounter Administered Medications Inactive Administered Medications - up to 3 most recent administrations Medication Order MAR Action Action Date Dose Rate Site levETIRAcetam (Keppra) 2,000 mg in 0.9% NaCl IV 270 mL IVPB 2,000 mg, at 540 mL/hr, Intravenous, ONCE, 1 dose, On 05/02/21 at 0345 $ Bolus New Bag 05/02/2021 5:05 AM DIRECTOR CRITICAL CARE 2,000 mg 540 mL/hr valproic acid (Depakene) solution 750 mg 750 mg, Oral, ONCE, 1 dose, On 05/02/21 at 0330 $ Given 05/02/2021 5:03 AM DIRECTOR CRITICAL CARE 750 mg documented in this encounter Active and Recently Administered Medications Times are shown in DIRECTOR CRITICAL CARE. Scheduled Medication Order 04/30/2021 05/01/2021 05/02/2021 levETIRAcetam (Keppra) 2,000 mg in 0.9% NaCl IV 270 mL IVPB (COMPLETED) 2,000 mg, at 540 mL/hr, Intravenous, ONCE, 1 dose, On 05/02/21 at 0345 0505 ($ Bolus New Ba g - Provider: Pat Beckett RN) valproic acid (Depakene) solution 750 mg (COMPLETED) 750 mg, Oral, ONCE, 1 dose, On 05/02/21 at 0330 0503 ($ Given - Prov ider: Pat Beckett RN) documented in this encounter Care Teams Decorating And Assembly Supervisor Relationship Specialty Start Date End Date Daryl Barr MD PCP - General 09/16/20 03/07/22 Elizabeth Sullivan, ALFRED Supervisor Modern Languages 10/14/17 documented as of this encounter
--- OUTSIDE RECORDS SUMMARY | 2024-06-08 05:41 | XMS_ITS | Encounter Summary ---
Author Organization [facility] Health Address [address] [place] [address] Care Team Providers Care [employer] Name Role Phone Elizabeth Sullivan RN Unavailable [phone] Daryl Barr MD Primary Care Provider [phone] Reason for Visit * Reason Onset Date Comments Confirmation 12/16/2021 Called POA to co nfirm EMU admission. She confirmed and will call for any questions. Encounter Details Date Type Department Care Team (Late st Contact Info) Description 12/16/2021 Telephone [facility] 5N ACUTE [address] [place] [id number] Genesis Garibay RN Confirmation (Called POA to confirm EMU admission. She confirmed and will call for any questions.) Social History Tobacco Use Types Packs/Day Years [...] Yes 08/18/2020 documented as of this encounter Plan of Treatment Upcoming Encounters Date Type Department Care Team (Late st Contact Info) Description 12/05/2024 1:00 PM CDT Office Visit [facility] - Neurology [address] [place] [address], [place] [address] Sean Raymundo, [address] [place] [address] [place] [address] documented as of this encounter Visit Diagnoses Not on filedocumented in this encounter Care Teams [employer] Relationship Specialty Start Date End Date Daryl Barr MD PCP - General 09/16/20 03/07/22 Elizabeth Sullivan, RN Reconciliation Clerk 10/14/17 documented as of this encounter
--- OUTSIDE RECORDS SUMMARY | 2024-06-08 05:41 | XMS_ITS | Encounter Summary ---
Author Organization [facility] Health Address [address] [place] [address] Care Team Providers Care Cleaning Professional Name Role Phone Elizabeth Sullivan RN Unavailable [phone] Daryl Barr MD Primary Care Provider [phone] Reason for Visit * Reason Onset Date Comments Medication Prior Auth Request 12/24/2021 Encounter Details Date Type Department Care Team (Late st Contact Info) Description 12/24/2021 Telephone [facility] [address] [place] [address] Yana Rm, FAMILY AND DIVORCE LEGAL ASSISTANT-CLIENT EXECUTIVE [address] [place] [address] Medication Prior Auth Request Social History Tobacco Use Types Packs/Day Years Used Date Smoking Tobacco: Former Cigarettes 1 15 Smokeless Tobacco: Never Alcohol Use Standard Drinks/Week Comments No 0 (1 standard drink = 0.6 oz pur e alcohol) last drink 2015 Hunger Vital Sign Answer Date Recorded Within [...] Telephone Encounter - Michaela Bass RN - 12/24/2021 9:14 AM CDT Contacted the pharmacy regarding PA for cenobamate titration pack that were escribed by BOUCHRA Rm today. PA not required for these titration packs. Went through as a paid claim with $0 co-pay. Will inform BOUCHRA Rm. * Telephone Encounter - Michaela Bass RN - 12/24/2021 9:14 AM CDT ----- Message from ELANA Cullen sent at 12/24/2021 8:38 AM CDT ----- Regarding: REBECCA William, I'm starting patient on cenobamate, assuming this will need a PA. Patient leaving EMU- so getting the first titration pack through [facility] pharmacy with the free coupon card. But I will be sending the second & third titration pack prescription to their pharmacy, which he will need in 4 weeks. So just wanted to start the process so we didn't run into any issues. Thanks for the help! -Yana documented in this encounter Plan of Treatment Upcoming Encounters Date Type Department Care Team (Late st Contact Info) Description 12/05/2024 1:00 PM CDT Office Visit [facility] - Neurology [address] [facility], [place] [address] Sena Raymundo, [facility] [place] [phone] documented as of this encounter Visit Diagnoses Not on filedocumented in this encounter Care Teams Cleaning Professional Relationship Specialty Start Date End Date Daryl Barr MD PCP - General 09/16/20 03/07/22 Elizabeth Sullivan RN Manager Style 10/14/17 documented as of this encounter
--- OUTSIDE RECORDS SUMMARY | 2024-06-08 05:41 | XMS_ITS | Encounter Summary ---
Author Organization [facility] Health Address [address] [place] [address] Care Team Providers Care Electrode Cleaning Machine Operator Name Role Phone Elizabeth Sullivan RN Unavailable [phone] Daryl Barr MD Primary Care Provider [phone] Reason for Visit * Reason Onset Date Comments Medication Prior Auth Request 03/18/2021 Encounter Details Date Type Department Care Team (Late st Contact Info) Description 03/18/2021 Telephone [facility] [address] [facility], [facility] [place] [address] Ck Feliciano MD [address] [place] [address] [place] [address] Medication Prior Auth Request Social History Tobacco [...] encounter Miscellaneous Notes * Telephone Encounter - Viviane Isaacs - 03/18/2021 2:29 PM CDT PA INITIATED FOR [place], VIA FAX, TO [facility]. MEDICAL NECESSITY LETTER ALSO FAXED WITH CHART NOTES. Viviane Isaacs documented in this encounter Plan of Treatment Upcoming Encounters Date Type Department Care Team (Late st Contact Info) Description 12/05/2024 1:00 PM CDT Office Visit [facility] - Neurology [address] [place] [address], [place] [address] Sean Raymundo, DO [address] [place] [address] [place] [address] documented as of this encounter Visit Diagnoses Not on filedocumented in this encounter Care Teams Electrode Cleaning Machine Operator Relationship Specialty Start Date End Date Daryl Barr MD PCP - General 09/16/20 03/07/22 Elizabeth Sullivan RN Pharmacology Teacher 10/14/17 documented as of this encounter
--- OUTSIDE RECORDS SUMMARY | 2024-06-08 05:41 | XMS_ITS | Encounter Summary ---
Author Organization [facility] Address [address] [facility] [place] [address] Care Team Providers Care Operations Support Analyst Name Role Phone Elizabeth Sullivan RN Unavailable [phone] Daryl Barr MD Primary Care Provider [phone] Reason for Referral * Neurology (Routine) - Closed Specialty Diagnoses / Procedures Referred By Anabella dan Referred To Contact Neurology Diagnoses Partial 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, intractable, with status epilepticus (HCC) Procedures EEG VIDEO MONITORING Yana Rm APRN-CNP [address] [place] [address] [facility] Eeg/Emg [address] [place] [address] Referral ID Status Reason Start Date Expiration Date Visits Re quested Visits Authorized [id number] Closed 12/21/2021 06/22/2022 1 1 [facility] Reason for Visit * Neurology (Routine) - Closed Specialty Diagnoses / Procedures Referred By Anabella dan Referred To Contact Neurology Diagnoses Partial 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, intractable, with status epilepticus (HCC) Procedures EEG VIDEO MONITORING Yana Rm APRN-CNP [address] [place] [address] [facility] Eeg/Emg [address] [place] [address] Referral ID Status Reason Start Date Expiration Date Visits Re quested Visits Authorized [id number] Closed 12/21/2021 06/22/2022 1 1 Encounter Details Date Type Department Care Team (Latest Contact Info) Description 12/21/2021 12:00 PM CDT - 12/21/2021 12:08 PM CDT Hospital Encounter [facility] EEG/EMG [address] [place] [address] Sean Raymundo, DO [address] [place] [address] Discharge Disposition: Home or Self Care Social [...] needed for Fever or Pain 01/07/2022 06/15/2022 acetaminophen (TYLENOL) 325 MG tablet 12/12/2018 01/07/2022 amLODIPine (Norvasc) 5 MG tablet Take 1 (one) tablet by mouth at bedtime 60 tablet 3 01/07/2022 04/01/2022 amLODIPine (NORVASC) 5 MG tabletIndications:Hype rtension, unspecified type Take 1 tablet by mouth once daily 30 tablet 06/10/2018 01/07/2022 aspirin (Aspirin) 81 MG chew tablet Take 1 (one) tablet by mouth once daily 60 tablet 2 01/08/2022 06/15/2022 aspirin (ASPIRIN) 81 MG chew tablet Take 1 tablet by mouth once daily 30 tablet 06/10/2018 01/07/2022 atorvastatin (Lipitor) 40 MG tablet Take 1 (one) tablet by mouth once daily 60 tablet 2 01/08/2022 04/01/2022 atorvastatin (LIPITOR) 40 MG tablet Take 1 (one) tablet by mouth at bedtime 08/21/2020 01/07/2022 Cenobamate (XCOPRI) 14 x 12.5 MG & 14 x 25 MG TBPK Take 12.5 mg by mouth at bedtime for 14 days, THEN 25 mg at bedtime for 14 days. 28 Each 12/24/2021 12/24/2021 Cenobamate (XCOPRI) 14 x 12.5 MG & 14 x 25 MG TBPK Take 12.5 mg by mouth at bedtime for 14 days, THEN 25 mg at bedtime for 14 days. 28 Each 12/24/2021 01/07/2022 Cenobamate 14 x 150 MG & 14 x200 MG TBPK Take 150 mg by mouth at bedtime for 14 days, THEN 200 mg at bedtime for 14 days. 28 Each 02/19/2022 01/07/2022 Cenobamate 14 x 50 MG & 14 x100 MG TBPK Take 50 mg by mouth at bedtime for 14 days, THEN 100 mg at bedtime for 14 days. 28 Each 01/22/2022 01/07/2022 Cholecalciferol 25 MCG (1000 UT) Take 1,000 Units by mouth once daily 12/13/2020 01/07/2022 cloBAZam (Onfi) 10 MG tablet Take 1 (one) tablet by mouth 2 times daily 60 tablet 3 01/07/2022 02/16/[address] (DEPAKOTE) 250 MG tabletIndications:Part ial 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, intractable, with status epilepticus (HCC) Take 1 (one) tablet by mouth 2 times daily [Take with 250 mg tablets, making 750 mg twice a day] 180 tablet 3 12/09/2021 01/07/[address] (Depakote) 500 MG tablet Take 2 (two) tablets by mouth 2 times daily 60 tablet 3 01/07/2022 02/16/[address] (DEPAKOTE) 500 MG tabletIndications:Part ial 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, intractable, with status epilepticus (HCC) Take 1 (one) tablet by mouth 2 times daily [Take with 250 mg tablets, making 750 mg twice a day] 180 tablet 3 12/09/2021 01/07/2022 folic acid (Folvite) 1 MG tablet Take 1 (one) tablet by mouth once daily 60 tablet 2 01/08/2022 04/01/2022 ibuprofen (Motrin) 600 MG tablet Take 1 (one) tablet by mouth as needed 30 tablet 01/07/2022 04/01/2022 ibuprofen (MOTRIN) 600 MG tablet Take 600 mg by mouth as needed 09/01/2018 01/07/2022 lacosamide (Vimpat) 200 MG tablet Take 1 (one) tablet by mouth 2 times daily 60 tablet 3 01/07/2022 02/16/2022 lacosamide (VIMPAT) 200 MG tabletIndications:Part ial 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, intractable, with status epilepticus (HCC) Take 1 (one) tablet by mouth 2 times daily 180 tablet 3 12/09/2021 01/07/2022 lacosamide (VIMPAT) 200 MG tablet Take 1 tablet by mouth 2 times daily for 30 days 60 tablet 5 05/16/2019 06/28/2023 levETIRAcetam (Keppra) 1000 MG tablet Take 2 (two) tablets by mouth every 12 hours 60 tablet 3 01/07/2022 02/16/2022 levETIRAcetam (KEPPRA) 1000 MG tabletIndications:Part ial 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, intractable, with status epilepticus (HCC) Take 2 (two) tablets by mouth 2 times daily 360 tablet 3 12/09/2021 01/07/2022 levETIRAcetam (KEPPRA) 1000 MG tablet Take 2 [...] a meal. 30 capsule 2 01/08/2022 04/01/2022 tamsulosin (FLOMAX) 0.4 MG capsule 0.4 mg once daily 12/12/2018 01/08/20 thiamine (Vitamin B-1) 100 MG tablet Take 1 (one) tablet by mouth once daily 30 tablet 2 01/08/2022 04/01/2022 vitamin D3 (Cholecalciferol) 25 MCG (1000 UNITS) tablet Take 1 (one) tablet by mouth once daily 30 tablet 2 01/08/2022 04/01/2022 documented as of this encounter Plan of Treatment Upcoming Encounters Date Type Department Care Team (Late st Contact Info) Description 12/05/2024 1:00 PM CDT Office Visit [facility] - Neurology [address] [place] [address], [place] [address] Sean Raymundo, [address] [place] [address] Scheduled Orders Name Type Priority Associated Diagnoses Orde r Schedule EEG VIDEO MONITORING Neurology Routine Partial 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, intractable, with status epilepticus (HCC) 1 Occurrences starting 04/09/2022 until 04/09/2022 documented as of this encounter Visit Diagnoses Diagnosis Partial 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, intractable, with status epilepticus (HCC) documented in this encounter Care Teams Operations Support Analyst Relationship Specialty Start Date End Date Daryl Barr MD PCP - General 09/16/20 03/07/22 Elizabeth Sullivan RN Reactor Technician 10/14/17 documented as of this encounter
--- OUTSIDE RECORDS SUMMARY | 2024-06-08 05:41 | XMS_ITS | Encounter Summary ---
Author Organization [facility] Health Address [address] [place] [address] Care Team Providers Care Financial Recording Clerk Name Role Phone Elizabeth Sullivan RN Unavailable Daryl Barr MD Primary Care Provider [phone] Encounter Details Date Type Department Care Team (Late st Contact Info) Description 12/28/2021 Orders Only [facility] 5N ACUTE [address] [place] [phone] Sridhar Onofre RN Social History Tobacco Use Types Packs/Day Years [...] Office Visit [facility] - [facility] [address] [place] [address], [place] [phone] Sean Raymundo, [place] [address] [place] [address] [place] [address] documented as of this encounter Visit Diagnoses Not on filedocumented in this encounter Care Teams Financial Recording Clerk Relationship Specialty Start Date End Date Daryl Barr MD PCP - General 09/16/20 03/07/22 Elizabeth Sullivan, RN Lot Associate 10/14/17 documented as of this encounter
--- OUTSIDE RECORDS SUMMARY | 2024-06-08 05:41 | XMS_ITS | Encounter Summary ---
Author Organization [facility] Health Address [address] [facility] [place] [address] Care Team Providers Care Gyroscope Repairer Name Role Phone Elizabeth Sullivan RN Unavailable [phone] Daryl Barr MD Primary Care Provider Reason for Referral * Neurology (Routine) - Closed Specialty Diagnoses / Procedures Referred By Anabella dan Referred To Contact Neurology Diagnoses Partial 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, intractable, with status epilepticus (HCC) Procedures EEG VIDEO MONITORING Yana Rm APRN-CNP [address] [place] [address] [facility] Eeg/Emg [address] [place] [address] Referral ID Status Reason Start Date Expiration Date Visits Re quested Visits Authorized [id number] Closed 12/21/2021 06/22/2022 1 1 Reason for Visit * Reason Comments Seizure Encounter Details Date Type Department Care Team ([facility] Contact Info) Description 12/09/2021 10:30 AM CDT Office Visit [facility] [address] [facility], [place] [address] Yana Rm APRN-CNP [address] [place] [phone] Partial 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, intractable, with status epilepticus (HCC) (Primary Dx) Social History [...] Sign Reading Time Taken Comments Blood Pressure 120/77 12/09/2021 10:23 AM CDT Pulse 80 12/09/2021 10:23 AM CDT Temperature 36.4 ??C (97.6 ??F) 12/09/2021 10:23 AM C DT Respiratory Rate - - Oxygen Saturation 95% 12/09/2021 10:23 AM CDT Inhaled Oxygen Concentration - - Weight 59.4 kg (131 lb) 12/09/2021 10:23 AM CDT Height 180.3 cm (5' 11 ) 12/09/2021 10:23 AM CDT Body Mass Index 18.27 12/09/2021 10:23 AM CDT documented in this encounter Functional [...] Yes 08/18/2020 documented as of this encounter Progress Notes * Yana Rm APRN-CNP - 12/09/2021 10:30 AM CDT Epilepsy Clinic Note PCP Daryl Barr MD Date of Encounter: 09/01/2021 Chief Complaint: Seizure SEMIOLOGY AGE OF ONSET 30s SEMIOLOGY - Aura Tingling sensation over to the right side - Ictus #1.) staring off events Duration: few seconds #2.) Convulsions, with tongue injury Duration: few minutes - Post-ictus Confusion, aggression, disagreeable, possible paranoia, lasting several days SEIZURE CONTROL Seizure frequency #1.) weekly? #2.) every month Date of last seizure #1) past week #2.) past 2 weeks Status epilepticus in 04/2019 suspected due to erratic dosing of medication PRE-VISIT MEDICATION Name Pill Size Frequency Total/day Level Start Levetiractam 1000 mg tab 2 - 2 4,000mg/day 58 (09/01/2020) Depakote DR 500 mg tab 1 - [address] 250 mg tab 1 - 1 1,500mg/day 87.2 (10/07/2021) Lacosamide 200 mg tab 1 - 1 400mg/day 11.5 (09/01/21) ?? COMPLIANCE Good TREATMENT HISTORY Name Allergy/Side Effects/Ineffectiveness Name Allergy/Side Effects/Ineffectiveness Phenytoin Oxcarbazepine Hyponatremia Eslicabazepine Erratic Clonazepam Excessive somnolence at 4 mg/day/hallucinations Valtoco- was not using, did not want refills EE08/20/2020: Dr. Raymundo This is an abnormal cEEG due to 1) right focal electrographic seizures (resolved), 2) occasional right sided spikes and sharp waves, 3) right sided slowing, 4) generalized slowing. 08/15/2020 Dr. Raymundo This is an abnormal cEEG due to 1) frequent right focal electrographic seizures, 2) right sided slowing, 3) generalized slowing. 04/[address] Feliciano This is an abnormal cEEG due to 1) focal onset seizures, 2) right hemispheric epileptiform discharges and lateralized periodic discharges (LPDs), 3) lateralized right hemispheric slowing, and 4) moderate generalized slowing. 10/15/[address] Carmen This is an [...] focal slowing, suggestive of underline structure/functional abnormalities. 08/12/2015. Dr. Suazo This is a normal awake and drowsy EEG IMAGIN05/01/2021: CT head wo contrast: [facility] 1.No acute [...] LABORATORY RESULTS CBC: Recent Labs Component Name 05/01/21215802/25/21 1135 08/20/20 0403 WBC 5.4 6.4 9.5 HGB 13.5 14.7 15.9 PLTCOUNT 164 139* 121* BMP: Recent Labs Component Name 05/01/21215802/25/21 1212 08/20/20 0403 NA 143 140 141 CO2 24 23 26 CREATININE 0.79 0.83 1.0 LFT: Recent Labs Component Name 05/01/21215802/25/21 1212 08/13/20 1700 AST 19 17 21 ALT 10 9 11 VITAMIN D: Recent Labs Component Name 05/10/19 0832 01/15/19 0722 [id number] 28.9* 6.7* HPI: History of Epilepsy: Mr. Tabor is a 61 year old man, with past medical history of alcohol abuse (resolved 2015), head injury, cervical osteoarthritis, and refractory epilepsy. 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 Today patient is accompanied by his sister, Adriaen who is the POA. It is unclear how often patient's seizures are occurring since he lives alone, however patient did go to the ER in 09/2021 for a seizure, semiology type #2. Patient currently is having seizure type #1 possibly several times a week, and type #2 once monthly? Last visit discussed doing a home ambulatory EEG in order to quantify seizure burden, however patient and his sister do not think this is possible since he lives alone. Patient and sister mention that they would consider surgical work-up in the future but first would like to try medication regimen adjustment. Will order EMU visit, for medication adjustment along with quantifying patient's seizure burden. Patient and sister agree with plan of care. Risk factors: Complex febrile seizure Hx no Head trauma Hx yes HAND STITCHER Infection Hx no Family Epilepsy Hx no [...] daily ??? ibuprofen (MOTRIN) 600 MG tablet Take [...] 0.4 MG capsule 0.4 mg once daily No current facility-administered medications for [...] no Marijuana usage no Physical Exam: BP 120/77 Pulse 80 Temp 97.6 ??F (36.4 ??C) Ht 5' 11 (1.803 m) Wt 131 lb (59.4 kg) SpO2 95% BMI 18.27 kg/m2 General Awake, alert, appropriate HEENT: Head normocephalic and atraumatic Extremities: No cyanosis or edema noted ?? Cortical Function: MS: Awake, Alert, Follows Commands Oriented to Person, Place Language: Fluent, some delayed responses ?? Cranial Nerves: Full EOM, No ptosis or nystagmus No facial palsy Palate symmetric; Normal tongue protrusion ?? Motor: Strength: RUE 4/5 LUE 4/5 RLE 4/5 LLE 4/5 Assessment/Plan: Mr. Tabor, is a 61 year old man with PMH of alcohol abuse, head injury, post- stroke epilepsy, came to the Epilepsy Clinic today for a follow up visit. Patient currently on three ASMs, and possibly still suffering from weekly seizures, semiology type #1-staring off events, and monthly GTC type seizures, semiology type #2. -EMU referral: to chang seizure burden and medication adjustment -Continue ASM medication regimen listed below -neuropyschology referral: memory concerns -follow-up in 3 months or sooner if problems arise Patient and family agree and voice understanding of plan of care listed above POST-VISIT MEDICATION (Current to 09/01/2021) Name Pill Size Frequency Total/day Level Start Levetiractam 1000 mg tab 2 - 2 4,000mg/day 4(L) (05/01/2021) Depakote DR 500 mg tab 1 - [address] 250 mg tab 1 - 1 1,500mg/day 81.8 (08/06/2021) Lacosamide 200 mg tab 1 - 1 400mg/day I told the in clear terms regarding importance of compliance. I personally spent 60 minutes on 12/09/2021 preparing to see the patient (e.g. reviewing [...] [facility] - Neurology [address] [place] [address], [place] [address] Sean Raymundo, [address] [phone] Scheduled Orders Name Type Priority Associated Diagnoses Orde r Schedule EEG VIDEO MONITORING Neurology Routine Partial 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, intractable, with status epilepticus (HCC) 1 Occurrences starting 12/09/2021 until 12/09/2022 documented as of this encounter Visit Diagnoses Diagnosis Partial 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, intractable, with status epilepticus (HCC)- Primary documented in this encounter Care Teams Gyroscope Repairer Relationship Specialty Start Date End Date Daryl Barr MD PCP - General 09/16/20 03/07/22 Elizabeth Sullivan, RN Captain Of Guards 10/14/17 documented as of this encounter
--- OUTSIDE RECORDS SUMMARY | 2024-06-08 05:41 | XMS_ITS | Encounter Summary ---
Author Organization [facility] Health Address [address] [facility] [place] [address] Care Team Providers Care Resolution Analyst Name Role Phone Elizabeth Sullivan RN Unavailable [phone] Daryl Barr MD Primary Care Provider [phone] Encounter Details Date Type Department Care Team (Late st Contact Info) Description 10/08/2021 Orders Only [facility] [address] [facility] [place] [address] Yana Rm, LIBRARY HISTORIAN-RHEOLOGIST [address] [place] [phone] Social History Tobacco Use Types Packs/Day Years [...] Office Visit [facility] Neurology [facility] [facility] [place] [address] Sean Raymundo, [facility] [place] [phone] documented as of this encounter Visit Diagnoses Not on filedocumented in this encounter Care Teams Resolution Analyst Relationship Specialty Start Date End Date Daryl Barr MD PCP - General 09/16/20 03/07/22 Elizabeth Sullivan, RN Electrical Accessories I Assembler 10/14/17 documented as of this encounter
--- OUTSIDE RECORDS SUMMARY | 2024-06-08 05:41 | XMS_ITS | Encounter Summary ---
Author Organization [facility] Health Address [address] [facility] [place] [address] Care Team Providers Care Floral Decorator Name Role Phone Elizabeth Sullivan RN Unavailable [phone] Daryl Barr MD Primary Care Provider [phone] Encounter Details Date Type Department Care Team (Latest Contact Info) Description 12/10/2021 Travel Social History Tobacco Use Types Packs/Day [...] Visit [facility] - Neurology [address] [place] [address], [place] [address] Sean Raymundo, DO [address] [place] [address] [place] [phone] documented as of this encounter Visit Diagnoses Not on filedocumented in this encounter Care Teams Floral Decorator Relationship Specialty Start Date End Date Daryl Barr MD PCP - General 09/16/20 03/07/22 Elizabeth Sullivan, RN Plastic Surgery Specialist 10/14/17 documented as of this encounter
--- OUTSIDE RECORDS SUMMARY | 2024-06-08 05:41 | XMS_ITS | Encounter Summary ---
Author Organization [facility] Health Address [address] [facility] [place] [address] Care Team Providers Care Medical Attendant Name Role Phone Elizabeth Sullivan RN Unavailable [phone] Daryl Barr MD Primary Care Provider [phone] Reason for Visit * Reason Comments Seizure Encounter Details Date Type Department Care Team (Late st Contact Info) Description 09/01/2021 2:00 PM CDT Office Visit [facility] Neurology [address] [place] [phone] Yana Rm, BELT POLISHER-FUR PULLER [address] [place] [address] Seizures (HCC) (Primary Dx); Partial 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, intractable, with status epilepticus (HCC); 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, [...] Sign Reading Time Taken Comments Blood Pressure 137/77 09/01/2021 1:59 PM CDT Pulse 76 09/01/2021 1:59 PM CDT Temperature 36.2 ??C (97.2 ??F) 09/01/2021 1:59 PM CD T Respiratory Rate - - Oxygen Saturation 95% 09/01/2021 1:59 PM CDT Inhaled Oxygen Concentration - - Weight - - Height 180.3 cm (5' 11 ) 09/01/2021 1:59 PM CDT Body Mass Index - - documented [...] this encounter Progress Notes * Yana Rm, KOLTON-FUR PULLER - 09/01/2021 2:00 PM CDT Epilepsy Clinic Note PCP Daryl Barr MD Date of Encounter: 09/01/2021 Chief Complaint: Seizure SEMIOLOGY AGE OF ONSET 30s SEMIOLOGY - Aura Tingling sensation over to the right side - Ictus #1.) staring off events Duration: few seconds #2.) Convulsions, with tongue injury Duration: few minutes - Post-ictus Confusion, aggression, disagreeable, possible paranoia, lasting several days SEIZURE CONTROL Seizure frequency #2.) every 3 months? #1.) unknown; possibly several times a week Date of last seizure Status epilepticus in 04/2019 suspected due to erratic dosing of medication #1.) weekly #2.) around June 2021 PRE-VISIT MEDICATION Name Pill Size Frequency Total/day Level Start Levetiractam 1000 mg tab 2 - 2 4,000mg/day 4(L) (05/01/2021) Depakote DR 500 mg tab 1 - [address] 250 mg tab 1 - 1 1,500mg/day 81.8 (08/06/2021) Lacosamide 200 mg tab 1 - 1 400mg/day Valtoco 15 mg - 7.5 mg in each nostril for breakthrough seizures (discontinued, was not using, doesnot want refill) ?? Thiamine 100 mg 1 - 0 B12 1000 mcg 1 - 0 Folic 1 mg 1 - 0 COMPLIANCE Good TREATMENT HISTORY Name Allergy/Side Effects/Ineffectiveness Name Allergy/Side Effects/Ineffectiveness Phenytoin Oxcarbazepine Hyponatremia Eslicabazepine Erratic Clonazepam Excessive somnolence at 4 mg/day EE08/20/2020: Dr. Raymundo This is an abnormal [...] Labs Component Name 05/10/19 0832 01/15/19 0722 [id number] 28.9* 6.7* HPI: History of Epilepsy: Mr. Tabor is a 61 year old man, with past medical history of alcohol abuse (resolved 2015), head injury, cervical osteoarthritis, and refractory epilepsy. Age of onset was in his 30s. 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 A code stroke was called, and it was noted that patient had left sided carotid stenosis. Patient is being followed by Dr. Romeo with vascular neurology. Today's visit HPI: Today patient is accompanied by his sister, Adriane who is the POA. Per Adriane, patient has been doing much better since leaving the nursing facility in June 2021, patient agrees. Their concern was that the facility was messing with his medications and that was the cause in increased frequency of seizures and compliance concerns. Patients medication is managed by family now, and he has a caregiver that comes in on Tuesday, Wednesdays and Fridays. Goal of patient and sister is to decrease medications, they believe he is on too much and this is causing increased somnolence and poor quality of life. Patient currently is having seizure type #1 possibly several times a week, and type #2 once every three months. Voiced understanding of wanting to improve quality of life but discussed first wanting to verify ASM levels are at a therapeutic level and gather more information if semiology type #1 are in fact seizures. Discussed doing a home ambulatory EEG study. Risk factors: Complex febrile seizure Hx no Head trauma Hx yes PRESCRIPTIONIST Infection Hx no Family Epilepsy Hx no Handedness Memory fair Mood fair History of kidney stones no Driving no Living situation Home alone; with family visiting Work no Allergies: No Known Allergies Current Outpatient Medications Medication Sig ??? acetaminophen [...] 1,000 Units by mouth once daily ??? clonazePAM (KLONOPIN) 2 MG tablet Take 1 (one) tablet by mouth 2 times daily (Patient not taking: Reported on 08/28/2021) ??? Cyanocobalamin (B-12) 1000 MCG Take 1 mg by mouth once daily (Patient not taking: Reported on 08/28/2021) ??? diazePAM (VALTOCO 15 MG DOSE) 15 MG (2 x 7.5 MG/0.1ML) nasal spray [place] 0.2 mL into the nose as needed for Seizures (For breakthrough seizure to prevent clustering) (Patient not taking: Reportedon 08/28/2021) ??? divalproex DR (DEPAKOTE) 250 MG tablet Take 1 (one) tablet by mouth 2 times daily [Take with 250 mg tablets, making 750 mg twice a day] (Patient not taking: Reported on 08/28/2021) ??? divalproex DR (DEPAKOTE) 500 MG tablet [...] (one) tablet by mouth 2 times daily (Patient not taking: Reported on 08/28/2021) ??? levETIRAcetam (KEPPRA) 1000 MG tablet Take [...] no Marijuana usage no Physical Exam: BP 137/77 Pulse 76 Temp 97.2 ??F (36.2 ??C) (Oral) Ht 5' 11 (1.803 m) SpO2 95% BMI 23.43 kg/m2 General Awake, alert, appropriate HEENT: Head normocephalic and atraumatic Extremities: No cyanosis or edema noted ?? Cortical Function: MS: Awake, Alert, Follows Commands Oriented to Person, Place and Time Language: Fluent, some delayed responses ?? Cranial Nerves: Full EOM, No ptosis or nystagmus No facial palsy Palate symmetric; Normal tongue protrusion ?? Motor: ?? Strength: RUE 4/5 LUE 4/5 RLE 4/5 LLE 4/5 Assessment/Plan: Mr. Tabor, is a 61 year old man with PMH of alcohol abuse, head injury, post- stroke epilepsy, came to the Epilepsy Clinic today for a follow up visit Patient has refractory epilepsy, further complicated with previous erratic dosing possibly due to nursing facility issues. Patient now is living at home with better medication compliance, however patient is possibly still suffering from weekly seizures, semiology type #1-staring off events. Will obtain ambulatory EEG to gather more information at this time. -lacosamide level -levetiracetam level -valproic acid level -ambulatory EEG. -follow-up in 3 months or sooner if problems arise -depending on EEG results and lab levels will consider decreasing or adjusting medications. Patient and family agree and voice understanding [...] compliance. I personally spent 60 minutes on 09/01/2021 preparing to see the patient (e.g. reviewing chart, review of tests), obtaining and/or reviewing the separately obtained history, performing a medically necessary and appropriate examination and evaluation, counseling and educating the patient/family/caregiver, ordering medications, tests, or procedures, documenting in the patient record, and communicating results to the patient/family/caregiver. Yana Rm APRN-FUR PULLER documented in this encounter Plan of Treatment Upcoming Encounters Date Type Department Care Team (Late st Contact Info) Description 12/05/2024 1:00 PM CDT Office Visit [facility] - Neurology [address] [place] [address], [place] [phone] Sean Raymundo DO [address] [place] [phone] documented as of this encounter Results * (ABNORMAL) LACOSAMIDE (09/01/2021 3:35 PM CDT) [facility] Lacosamide 11.5(H) 1.0 - 10.0 ug/mL 09/03/2021 2:48 PM CDT [facility] ([facility]) Comment: INTERPRETIVE INFORMATION: Lacosamide, Serum or Plasma [...] developed and its performance characteristics determined by [facility]. It has not been cleared or approved by the US Food and Drug Administration. This test was performed in a CLIA-certified laboratory and is intended for clinical purposes. Performed By: [facility] [address] [place] [address] Knitting Tester: Philly Hope MD Blood BLOOD SPECIMEN / Unknown Lab Venipuncture / Unknown 09/01/2021 3:35 PM CDT 09/01/2021 4:10 PM CDT Yana Rm BELT POLISHER-FUR PULLER LAB - CHEMISTR Y ORDERABLES [facility]) [address] [place] [address] * VALPROIC ACID FREE+TOTAL PANEL (09/01/2021 3:35 PM CDT) Valproic Acid % Free 18 5 - 18 % 09/03/2021 10:10 PM CDT [facility] ([facility]) Comment: INTERPRETIVE INFORMATION: VPA-percent Free Valproic Acid, [...] include headache, somnolence and dizziness. Performed By: [facility] [address] [place] [address] Knitting Tester: Philly Hope MD Valproic Acid Free 17 7 - 23 ug/mL 09/03/2021 10:10 PM CDT [facility] ([facility]) Valproic Acid Total 93 50 - 125 ug/mL 09/03/2021 10:10 PM CDT [facility] ([facility]) Blood BLOOD SPECIMEN / Unknown Lab Venipuncture / Unknown 09/01/2021 3:35 PM CDT 09/01/2021 4:10 PM CDT Yana [facility] - THERAPEU TIC DRUG MONITORING ORDERABLES [facility]) [address] * (ABNORMAL) LEVETIRACETAM LEVEL (09/01/2021 3:35 PM CDT) Levetiracetam 58(H) 10 - 40 ug/mL 09/02/2021 10:09 PM CDT [facility] ([facility]) Comment: INTERPRETIVE INFORMATION: Keppra (Levetiracetam) Therapeutic Range: ??10-40 ug/mL ?Toxic: ??Not well Established Pharmacokinetics of levetiracetam are affected by renal function. Adverse effects may include somnolence, weakness, headache and vomiting. This levetiracetam (Keppra) immunoassay uses the [employer] reagents, which has known cross-reactivity with the drug brivaracetam (Briviact) and may report inaccurate results. Patients transitioning from levetiracetam to brivaracetam or those who are using both medications should not monitor drug concentrations with the [employer] assay. These patients should be monitored using a validated chromatographic methodology that distinguishes between drugs to determine drug concentrations. Performed By: [facility] [address] [place] [address] Knitting Tester: Philly Hope MD Blood BLOOD SPECIMEN / Unknown Lab Venipuncture / Unknown 09/01/2021 3:35 PM CDT 09/01/2021 4:10 PM CDT Yana [facility] - THERAPEU TIC DRUG MONITORING ORDERABLES Performing Organization Address [facility]/State/ZIP Co de Phone Number [employer] ([facility]) [address] documented in this encounter Visit Diagnoses Diagnosis Seizures (HCC)- Primary Other convulsions Partial 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, intractable, with status epilepticus (HCC) 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, not intractable, without status epilepticus (HCC) documented in this encounter Care Teams Medical Attendant Relationship Specialty Start Date End Date Daryl Barr MD PCP - General 09/16/20 03/07/22 Elizabeth Sullivan, RN Manufacturing Engineering Director 10/14/17 documented as of this encounter
--- OUTSIDE RECORDS SUMMARY | 2024-06-08 05:41 | XMS_ITS | Encounter Summary ---
Author Organization [facility] Health Address [address] [facility] [place] [address] Care Team Providers Care Composite Bond Worker Name Role Phone Elizabeth Sullivan RN Unavailable [phone] Daryl Barr MD Primary Care Provider [phone] Reason for Referral * Radiology Services (Routine) - Closed Specialty Diagnoses / Procedures Referred By Anabella dan Referred To Contact Vascular Lab Diagnoses Vertebral artery stenosis, bilateral Carotid stenosis, bilateral Procedures VAS CAROTID DUPLEX BILATERAL Ousmane Frederick MD [address] [place] [address] [facility] [address] [address] Referral ID Status Reason Start Date Expiration Date Visits Re quested Visits Authorized [id number] Closed 02/26/2021 02/26/2022 1 1 Reason for Visit * Radiology Services (Routine) - Closed Specialty Diagnoses / Procedures Referred By Anabella dan Referred To Contact Vascular Lab Diagnoses Vertebral artery stenosis, bilateral Carotid stenosis, bilateral Procedures VAS CAROTID DUPLEX BILATERAL Ousmane Frederick MD [address] [place] [address] [facility] [address] [place] [address] Referral ID Status Reason Start Date Expiration Date Visits Re quested Visits Authorized [id number] Closed 02/26/2021 02/26/2022 1 1 Encounter Details Date Type Department Care Team (Latest Contact Info) Description 04/02/2021 10:00 AM CDT - 04/02/2021 10:59 AM CDT Hospital Encounter [facility] [address] [place] [phone] Ousmane Frederick MD [address] [place] [address] Discharge Disposition: Home or Self Care Social [...] localized onset, intractable, with status epilepticus (HCC) Max 0.2 mL into the nose as needed [...] Office Visit [facility] [address] [place] [address], [place] [phone] Sean Raymundo, DO [address] [place] [address] [place] [address] documented as of this encounter Procedures Procedure Name Priority Date/Time Associated Diagnosis Comments VAS CAROTID DUPLEX BILATERAL Routine 04/02/2021 12:27 PM CDT Vertebral artery stenosis, bilateral Carotid stenosis, bilateral documented in this encounter Results * VAS CAROTID DUPLEX BILATERAL (04/02/2021 12:27 [...] infarction documented in this encounter Care Teams Composite Bond Worker Relationship Specialty Start Date End Date Daryl Barr MD PCP - General 09/16/20 03/07/22 Elizabeth Sullivan, RN Hospital Administrative Assistant 10/14/17 documented as of this encounter
--- OUTSIDE RECORDS SUMMARY | 2024-06-08 05:41 | XMS_ITS | Encounter Summary ---
Author Organization [facility] Health Address [address] [facility] [place] [address] Care Team Providers Care Hall Manager Name Role Phone Elizabeth Sullivan RN Unavailable [phone] Daryl Barr MD Primary Care Provider Reason for Visit * Reason Onset Date Comments Medication Management 03/18/2021 Encounter Details Date Type Department Care Team (Late st Contact Info) Description 03/18/2021 Telephone [facility] [address] [facility], [place] [address] Ck Feliciano MD [address] [place] [address] [place] [address] Medication Management Social History Tobacco Use Types [...] Telephone Encounter - Evy Frost, RN - 03/18/2021 10:57 AM CDT Received and returned call to facility. They are requesting an alternate or discontinuation of diazepam (Valtaco) as patient's insurance does not cover and it costs $500. Will send to provider for recommendations. documented in this encounter Plan of Treatment Upcoming Encounters Date Type Department Care Team (Late st Contact Info) Description 12/05/2024 1:00 PM CDT Office Visit [facility] [address] [place] [address], [place] [phone] Sean Raymundo DO [address] [place] [address] [place] [address] documented as of this encounter Visit Diagnoses Not on filedocumented in this encounter Care Teams Hall Manager Relationship Specialty Start Date End Date Daryl Barr MD PCP - General 09/16/20 03/07/22 Elizabeth Sullivan, ALFRED Adolescent Counselor 10/14/17 documented as of this encounter
--- OUTSIDE RECORDS SUMMARY | 2024-06-08 05:41 | XMS_ITS | Encounter Summary ---
Author Organization [facility] Health Address [address] [facility] [place] [address] Care Team Providers Care Workplace Trainer And Assessor Name Role Phone Elizabeth Sullivan RN Unavailable [phone] Daryl Barr MD Primary Care Provider [phone] Encounter Details Date Type Department Care Team (Latest Contact Info) Description 04/02/2021 Travel Social History Tobacco Use Types Packs/Day [...] Office Visit [facility] [address] [place] [address], [place] [address] Sean Raymundo, DO [address] [place] [address] [place] [phone] documented as of this encounter Visit Diagnoses Not on filedocumented in this encounter Care Teams Workplace Trainer And Assessor Relationship Specialty Start Date End Date Daryl Barr MD PCP - General 09/16/20 03/07/22 Elizabeth Sullivan, ALFRED University Relations Vice President 10/14/17 documented as of this encounter
--- OUTSIDE RECORDS SUMMARY | 2024-06-08 05:41 | XMS_ITS | Encounter Summary ---
Author Organization [facility] Health Address [address] [facility] [place] [address] Care Team Providers Care Stiff Neck Loader Name Role Phone Elizabeth Sullivan RN Unavailable [phone] Daryl Barr MD Primary Care Provider [phone] Encounter Details Date Type Department Care Team (Latest Contact Info) Description 09/01/2021 Travel Social History Tobacco Use Types Packs/Day [...] Office Visit [facility] [address] [place] [address], [place] [address] Sean Raymundo, DO [address] [place] [address] [place] [phone] documented as of this encounter Visit Diagnoses Not on filedocumented in this encounter Care Teams Stiff Neck Loader Relationship Specialty Start Date End Date Daryl Barr MD PCP - General 09/16/20 03/07/22 Elizabeth Sullivan, ALFRED Chip Silo Tender 10/14/17 documented as of this encounter
--- OUTSIDE RECORDS SUMMARY | 2024-06-08 05:41 | XMS_ITS | Encounter Summary ---
Author Organization [facility] Health Address [address] [facility] [place] [address] Care Team Providers Care Pulp Roller Name Role Phone Elizabeth Sullivan RN Unavailable [phone] Daryl Barr MD Primary Care Provider [phone] Encounter Details Date Type Department Care Team (Late st Contact Info) Description 04/03/2021 10:00 AM CDT Video Visit [facility] [address] [facility], [place] [address] Ousmane Frederick MD [address] [place] [address] Stenosis of left carotid artery Social History Tobacco Use Types Packs/Day Years [...] as of this encounter Progress Notes * Ousmane Frederick MD - 04/03/2021 11:34 AM CDT Images from the original note were not included. Telephone Note Patient Verification & Telephone Based Consent: I am proceeding with this evaluation at the direct request of the patient. I have verified this is the correct patient and have obtained verbal consent from the patient/surrogate to perform this voluntary telephone encounter evaluation. I have explained risks (including potential loss of confidentiality), benefits, alternatives, and the potential need for subsequent face to face care. Patient/ surrogate understands that there is a risk of medical inaccuracies given that our recommendations willbe made based on reported data. Knowing that there is a risk that this information is not reported accurately, and that the telemedicine audio, or data feed may be incomplete, the patient agrees to proceed with evaluation and holds us harmless knowing these risks. In this evaluation, we will be providing recommendations only. The patient/surrogate has been notified that other healthcare professionals (including students, residents and technical personnel) may be involved in this audio evaluation. All laws concerning confidentiality and patient access to medical records and copies of medical re cords apply to telemedicine. I have reviewed this above verification and consent paragraph with thepatient/surrogate. Subjective Chief Complaint: I obtained the patient's information by review of the chart and discussing with the patient currentconditions and medications. Bi Tabor is a 61 year old male whom I have never met. I was asked to call him to discuss some recent vascular results which are abnormal. Current Outpatient Medications Medication Sig Dispense Refill ??? acetaminophen (TYLENOL) [...] by mouth once daily 30 capsule 11 ??? diazePAM (VALTOCO 15 MG DOSE) 15 MG (2 x 7.5 MG/0.1ML) nasal spray [place] 0.2 mL into the nose as needed for Seizures (For breakthrough seizure to prevent clustering) 3 kit 5 ??? divalproex DR (DEPAKOTE) 250 MG tablet Take 1 (one) tablet by mouth 2 times daily [Take with 250 mg tablets, making 750 mg twice a day] 60 tablet 5 ??? divalproex DR (DEPAKOTE) 500 MG tablet Take 1 (one) tablet by mouth 2 times daily [Take with 250 mg tablets, making 750 mg twice a day] 60 tablet 5 ??? folic acid (FOLVITE) 1 MG tablet Take 1 (one) tablet by mouth once daily 30 tablet 11 ??? ibuprofen (MOTRIN) 600 MG tablet ??? lacosamide (VIMPAT) 200 MG tablet Take 1 (one) tablet by mouth 2 times daily 60 tablet 5 ??? levETIRAcetam (KEPPRA) 1000 MG tablet Take 2 (two) tablets by mouth 2 times daily 120 tablet 5 ??? multivitamin daily tablet Take 1 (one) tablet by mouth once daily ??? tamsulosin (FLOMAX) 0.4 MG capsule 0.4 mg once daily ??? thiamine (VITAMIN B-1) 100 MG tablet Take 1 (one) tablet by mouth once daily 30 tablet 11 No current facility-administered medications for this visit. No Known Allergies Past Medical History: Diagnosis Date ??? CVA [...] Comment: occasional No family history on file. No family history of neurological diseases. Review of Systems A 14 point review of systems checklist of pertinent positives and negatives was performed and listed below. CONSTITUTIONAL: The patient's weight has not changed recently and appetite has been fair. EYES: no double vision, no blurred vision INTEGUMENT: no skin abnormalities ENT: no dental or swallowing problems CARD/VASC: no chest pain or palpitation RESP: no shortness of breath, cough or sputum production GI: no abdominal pain or change in bowel habits : no change in bladder habits IMMUNO: no immunological complaints ENDOCRINE: no problems HEMATOLOGICAL: No history of blood abnormalities MUSCULOSKELETAL: no joint or muscle pain NEUROLOGIC: As discussed in the history of present illness PSYCHIATRIC: Mood stable Objective Physical Exam Patient is awake and alert. Makes frequent paraphasic errors and is inattentive He is dysarthric. CTA: 1. Segmental high-grade stenosis involving the [...] 5. No acute intracranial large artery occlusion. Assessment & Plan Completed a telephone encounter regarding: Carotid Stenosis The following was sent to Drs. Hoyt and Deric: I called Bi today at the facility where he lives. In the room were his sister Adriane and his nurse Ephraim. I have never met Bi but a phone appointment was scheduled with me to discuss his symptomatic carotid stenosis and a recent CTA, cervical ultrasound and TCD. Adriane is a strong advocate for her brother and clearly loves him very much but she is very upset atthe system. She is particularly angry at Jacob Leos who did not see Bi when he was late for a recent appointment. She has never met me and hence did not trust me and was, if I can admit to it, somewhat rude. When I asked if there has ever been a Neurologist that they trust your name came up (Dr. Raymundo). I realize that discussing carotid stenosis is not your specialty but I think you have the best therapeutic relationship with them, for the moment. Would you be willing to see him in clinic? I understand fully if you do not think this is appropriate, Kortney will call Adriane and Bi either way. Jacob, you know them well. If you have any suggestions I am open to any advice that helps us take care of Bi. Thank you very much for your help. Encounter duration: 31 minutes Patient location: Home This encounter was performed using: Audio The plan was reviewed with the patient and the patient confirmed understanding of the plan and all follow-up steps. All aspects of patient's medical history were reviewed and updated as documented in [facility] ER SETTER RESISTANCE MACHINE documented in this encounter Plan of Treatment Upcoming Encounters Date Type Department Care Team (Late st Contact Info) Description 12/05/2024 1:00 PM CDT Office Visit [facility] - [facility]rology [address] [place] [address], [facility] [place] [phone] Sean Raymundo, [address] [place] [address] [place] [phone] documented as of this encounter Visit Diagnoses Diagnosis Stenosis of left carotid artery- Primary Occlusion and stenosis of carotid artery without mention of cerebral infarction documented in this encounter Care Teams Pulp Roller Relationship Specialty Start Date End Date Daryl Barr MD PCP - General 09/16/20 03/07/22 Elizabeth Sullivan, RN Armhole Raiser Lockstitch 10/14/17 documented as of this encounter
--- OUTSIDE RECORDS SUMMARY | 2024-06-08 05:42 | XMS_ITS | Encounter Summary ---
Author Organization [facility] Health Address [address] [facility] [address] [place] [address] Care Team Providers Care Furniture Assembler Name Role Phone Misael Maradiaga DO Primary Care Provider Elizabeth Sullivan RN Unavailable [phone] Reason for Visit * Reason Comments Seizure Encounter Details Date Type Department Care Team (Late st Contact Info) Description 06/18/2019 1:40 PM LEAD SCIENTIST Office Visit [facility] Neurology [address] [place] [address] Jenna Ivy, CENTRAL OFFICE OPERATOR-STUDENT FINANCIAL SERVICES COUNSELOR [address] [place] [id number] Intractable epilepsy with status epilepticus, unspecified epilepsy type (HCC) (Primary Dx) Social History Tobacco Use [...] Sign Reading Time Taken Comments Blood Pressure 124/85 06/18/2019 1:21 PM LEAD SCIENTIST Pulse 97 06/18/2019 1:21 PM LEAD SCIENTIST Temperature - - Respiratory Rate - - Oxygen Saturation 96% 06/18/2019 1:21 PM LEAD SCIENTIST Inhaled Oxygen Concentration - - Weight 70.3 kg (155 lb) 06/18/2019 1:21 PM LEAD SCIENTIST Height 180.3 cm (5' 11 ) 06/18/2019 1:21 PM LEAD SCIENTIST Body Mass Index 21.62 06/18/2019 1:21 PM LEAD SCIENTIST documented in this encounter Functional Status Functional Status Response Date of Assess ment Is person deaf or have serious hearing difficult y? No 05/16/2019 Is person blind or have serious difficulty seein g? No 05/16/2019 Does person have serious dif ficulty walking/climbing stairs? Yes 05/16/2019 Does person have difficulty dressing/bathing? Ye s 05/16/2019 Does person have difficulty doing errands alone? Yes 05/16/2019 Cognitive Status Response Date of Assessm ent Does person have difficulty concentrating/remembering/making decisions? Yes 05/16/2019 documented as of this encounter Progress Notes * Jenna Ivy, CENTRAL OFFICE OPERATOR-STUDENT FINANCIAL SERVICES COUNSELOR - 06/18/2019 1:26 PM CST Epilepsy Clinic Note PCP Misael Maradiaga DO Date of Encounter: 06/18/2019 Chief Complaint: Seizures- follow up AGE OF ONSET 50-year-old SEMIOLOGY - Aura Tingling sensation over the right side - Ictus 1. Dyscongitive events 2. Convulsions, tongue bites - Post-ictus Confusion, aggression, disagreeable, ?paranoia, lasting several days SEIZURE CONTROL Seizure frequency 1. Initially 1 event every 2 weeks, unclear 2. Initially 1 event every 1 month, unclear Seizure free interval Uncontrolled Date of last seizure 1. Unclear 2. 05/09/2019 due to erratic dosing Action Plan - MEDICATION Name Dose Frequency AED Level Start Levetiractam 2000 mg BID 74.4 (05/21/19) Depakote DR 750 mg BID 13 (05/21/19) Vimpat 200 mg BID 6.5 (05/21/19) Clonazepam 0.5 mg PRN COMPLIANCE Good TREATMENT HISTORY Name Allergy/Side Effects/Ineffectiveness Phenytoin Oxcarbazepine Hyponatremia Eslicabazepine Erratic EE07/2015 Normal awake and drowsy EEG 09/2017 [...] focal slowing, suggestive of underline structure/functional abnormalities. VEEG 05/09/19 to 05/12/19 IMPRESSION This is an abnormal cEEG due to 1) focal onset seizures, 2) right hemispheric epileptiform discharges and lateralized periodic discharges (LPDs), 3) lateralized right hemispheric slowing, and 4) moderate generalized slowing. IMAGIN07/2016 CT Brain: Focal area of encephalomalacia in the right occipital lobe MRI Brain 05/11/2019 IMPRESSION:?? Large area of cortical signal abnormality involving the right parietal, temporal and occipital lobes, separate cortical area in right frontal lobe and multiple areas in the right medial thalamus. As compared to the study from 05/08/2019, the restricted diffusion has resolved in the short interval (possibly pseudo-normalization) but the cortical edema/thickening and subcortical white matter FLAIR hyperintensity has increased. There is no susceptibility artifact or enhancement in this region. This appearance is nonspecific. Given the clinical presentation and unilateral signal abnormality, status epilepticus is likely. Alternatively, encephalitis may have similar appearance. Acute infarct is less likely given the nonvascular distribution. ?? Right hippocampus demonstrates diffuse asymmetric atrophy as compared to the left hippocampus. There is increased FLAIR signal in the residual hippocampus. This finding is likely related to seizures. ?? 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 Extensive volume loss of the cerebellar hemispheres and brainstem. Moderate to severe cerebral volume loss. ?? 2.2 x 1.6 cm enhancing well-defined lobulated polypoid lesion in the anterior aspect of the right maxillary sinus. This lesion is present on the CT scan from 08/27/2016 and on 01/14/2019, without calcification or bony erosion/remodeling. It may represent an inverted papilloma or other nonaggressive sinus lesion. Brain MRI 06/16/2019 IMPRESSION:?? 1.No evidence of acute intracranial findings. 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 3.Redemonstration of severe right hippocampus volume loss. 4.Additional chronic findings as above. 5.Unchanged enhancing lesion in the right maxillary sinus. 6.Paranasal sinus disease. CLASSIFICATION: Partial onset epilepsy LABORATORY RESULTS 05/16/2019 CBC: WBC 7.2, Plt 177 BMP: BUN 16, Cr 0.8 LFT: - VITAMIN D: - HPI: Bi Tabor is a 59 year old male with PMH stroke, post-stroke epilepsy, cervical arthritis, B12 deficiency, and h/o alcohol dependence (resolved 2016). Patient is here for follow up from 05/29/[address] Feliciano visit to have lab work done. Acompanied with sister and brother. Seizures semiology as described above. Patient and family reports he is doing well. Initially was taking Levetiracetam 1500 mg BID, with seizure being controlled but has multiple seizures in 09/2017, in the setting of missed dosage. The seizures clustered, and was difficult to control. Later, his Levetiracetam was increased and Depakote was added. He does have erratic compliance attimes, but still has breakthrough seizures even with good compliance, with breakthough event with Levetiracetam 2000 mg BID and Depakote DR 500 mg BID. Initiated Oxcarbazepine with improved seizure control, but had symptomatic hyponatremia. Tried substituting Aptiom for Oxcarbazepine, but stopped Depakote instead. Symptomatic hyponatremia. Given confusion, asked to stop both Aptiom and Oxcarbazepine for the time being but had generalized covulsions occurred in 01/24/2018, which resulted in ER visit and Vimpat 50 mg BID was added. ?? Seizures controlled until 04/2019, until had repetitive seizures and status epilepticus. Etiology suspected due to erratic compliance. Had refractory status epilepticus, and AEDs was increased upon discharges- keppra 2000 mg BID, Depakote DR 750 mg BID and Vimpt 200 mg BID. Currently doing better, started to ambulate more. [facility] jail ([facility]). Patient had vEEG done that showed as above and MRI brain as above. Denies any seizures since hospital d/c on 05/16/19. He was advised to continue same AEDs keppra 2000 mg BID, Depakote DR 750 mg BID and Vimpt 200 mg BID and MRI brain was ordered at [facility]. MRI brain showed stable finding. ROS: General Negative except per HPI Eyes Negative except per HPI ENT Negative except per HPI Pulmonary Negative except per HPI Cardiac Negative except per HPI GI Negative except per HPI Negative except per HPI Neurologic Per HPI, Frequent headaches Psychiatric Difficulty sleeping Skeletal Neck pain, gait difficulty Endocrine Negative except per HPI Infectious Negative except per HPI Allergies: No Known Allergies Home Medications: Current Outpatient Medications Medication Sig ??? acetaminophen (TYLENOL) 325 MG tablet ??? amLODIPine (NORVASC) 5 MG tablet Take 1 tablet by mouth once daily ??? aspirin (ASPIRIN) 81 MG chew tablet Take 1 tablet by mouth once daily ??? atorvastatin (LIPITOR) 20 MG tablet ??? clonazePAM (KLONOPIN) 0.5 MG tablet Take 1 tablet as needed after a seizure to prevent clustering, every 8 hours as needed. (Patient taking differently: 2 times daily Take 1 tablet as needed after a seizure to prevent clustering, every 8 hours as needed.) ??? Cyanocobalamin (B-12) 1000 MCG Take 1 mg by mouth once daily ??? folic acid (FOLVITE) 1 MG tablet Take 1 tablet by mouth once daily ??? ibuprofen (MOTRIN) 600 MG tablet ??? tamsulosin (FLOMAX) 0.4 MG capsule ??? thiamine (VITAMIN B-1) 100 MG tablet Take 1 tablet by mouth once daily No current facility-administered medications for this visit. PMH: Past Medical History: Diagnosis Date ??? CVA (cerebral vascular accident) ??? HTN (hypertension) ??? Seizure Family History: No family history on file. Social History: Social History Socioeconomic History ??? Marital status: Single Spouse name: Not on file ??? Number of children: Not on file ??? Years of education: Not on file ??? Highest education level: Not on file Occupational History ??? Not on file Social Needs ??? Financial resource strain: Not on file ??? Food insecurity: Worry: Not on file Inability: Not on file ??? Transportation needs: Medical: Not on file Non-medical: Not on file Tobacco Use ??? Smoking status: Former Smoker Packs/day: 1.00 Years: 15.00 Pack years: 15.00 ??? Smokeless tobacco: Never Used Substance and Sexual Activity ??? Alcohol use: No Comment: last drink 2015 ??? Drug use: No Comment: occasional ??? Sexual activity: Not Currently Lifestyle ??? Physical activity: Days per week: Not on file Minutes per session: Not on file ??? Stress: Not on file Relationships ??? Social connections: Talks on phone: Not on file Gets together: Not on file Attends islam service: Not on file Active member of club or organization: Not on file Attends meetings of clubs or organizations: Not on file Relationship status: Not on file ??? Intimate partner violence: Fear of current or ex partner: Not on file Emotionally abused: Not on file Physically abused: Not on file Forced sexual activity: Not on file Other Topics Concern ??? Not on file Social History Narrative ??? Not on file Alcohol usage no Illicit substance no Marijuana usage No Physical Exam: Vitals: 06/18/19 1321 BP: 124/85 Pulse: 97 SpO2: 96% Weight: 155 lb (70.3 kg) Height: 5' 11 (1.803 m) General : plesant HEENT: Head normocephalic and atraumatic Extremities: No cyanosis or edema noted Cortical Function: MS: Awake, Alert, Follows Commands Oriented to Person, Place Language: Fluent, Coherent, Repetition Intact VF Intact to confrontation test Neglect No visual neglect, No tactile neglect Cranial Nerves: Pupils 3 mm BRTL, Full EOM, No ptosis or nystagmus Facial sensation intact bilaterally to LT; No facial palsy Hearing intact to finger rub bilaterally Palate symmetric; Normal tongue protrusion Motor: Abnormal Movements: None Bulk: Normal Tone: Normal Strength: Appropriate for Age RUE 4+/5 LUE 4+/5 RLE 4+/5 LLE 4+/5 DTR: Bi Tri BR Pat R 3 3 4 4 L 3 3 4 4 Sensory: Intact to light touch, temperature and vibration b/l Cerebellar: FNF intact bilaterally Gait: Deferred, w/c bound Assessment: Focal onset epilepsy H/o stroke Plan: - Ronda is seizures free since hospital d/c 05/16/19, Continue Keppra 2000 mg BID, Depakote DR 750 mg BID and Vimpat 200 mg BID. Continue Clonazepam 0.5 mg PRN to prevent clustering seizures. - Will check labs as ordered by Dr. Feliciano. CBC, CMP and AEDs levels. - Continue care at SNF. - Follow up with Dr. Feliciano as scheduled on 07/14. Please follow the seizures precautions - be compliant with your medications - avoid sleep deprivation/alcohol/physical and emotional stress/prolonged fasting state - in case of physical illness, approach medical attention - be aware of your AED medication name and dosage - No driving until 6 months seizure free - No working with sharp objects/heavy machinery - do not work in kitchen without supervision - do not take a bath tub dip or go swimming alone/without supervision. - seizures can be harmful to self and others if due precautions are not practiced I spent 30 minutes in the evaluation of the patient of which more than 50 % of the time was spent in counseling and co-ordination of care. Jenna Ivy, MSN, TELEVISION PRODUCER-C Department of Neurology SCIENTIST documented in this encounter Plan of Treatment Upcoming Encounters Date Type Department Care Team (Late st Contact Info) Description 12/05/2024 1:00 PM CDT Office Visit [facility] - Neurology [address] [place] [address], [place] [address] Sean Raymundo DO [address] [place] [phone] documented as of this encounter Visit Diagnoses Diagnosis Intractable epilepsy with status epilepticus, unspecified epilepsy type (HCC)- Primary documented in this encounter Care Teams Furniture Assembler Relationship Specialty Start Date End Date Misael Maradiaga DO PCP - General 10/03/17 09/15/20 Elizabeth Sullivan, RN Experimental Machinist 10/14/17 documented as of this encounter
--- OUTSIDE RECORDS SUMMARY | 2024-06-08 05:42 | XMS_ITS | Encounter Summary ---
Author Organization [facility] Health Address [address] [facility] [place] [address] Care Team Providers Care Oliver Filter Operator Name Role Phone Misael Maradiaga DO Primary Care Provider Elizabeth Sullivan RN Unavailable [phone] Reason for Referral * Radiology Services (Routine) - Closed Specialty Diagnoses / Procedures Referred By Contac t Referred To Contact Vascular Lab Diagnoses PAD (peripheral artery disease) (HCC) Procedures VAS ARTERIAL ANKLE ARM INDEX Anna Membreno MD [address] [facility] [address] [place] [address] [facility] [address] [place] [address] Referral ID Status Reason Start Date Expiration Date Visits Re quested Visits Authorized [id number] Closed 11/28/2019 11/27/2020 1 1 * Radiology Services (Routine) - Closed Specialty Diagnoses / Procedures Referred By Contac t Referred To Contact Vascular Lab Diagnoses PAD (peripheral artery disease) (HCC) Procedures VAS LEFT ARTERIAL DUPLEX Anna Song MD [address] [facility] [address] [place] [address] [facility] [address] [place] [address] Referral ID Status Reason Start Date Expiration Date Visits Re quested Visits Authorized [id number] Closed 11/28/2019 11/27/2020 1 1 Reason for Visit * Reason Comments Peripheral Artery Disease PVD Encounter Details Date Type Department Care Team (Late st Contact Info) Description 11/28/2019 11:00 AM CDT Office Visit [facility] Vascular Surgery [address] [place], [place] [id number] Anna Membreno MD [address] [facility] [address] [place] [address] PAD (peripheral artery disease) (HCC) (Primary Dx) Social History Tobacco Use [...] or suspected to have Coronavirus / COVID-19? Unable to assess 11/28/2019 12:35 PM CDT documented as of this encounter Last Filed Vital Signs Vital Sign Reading Time Taken Comments Blood Pressure 149/91 11/28/2019 11:48 AM CDT Pulse 85 11/28/2019 11:48 AM CDT Temperature 36.1 ??C (97 ??F) 11/28/2019 11:48 AM CDT Respiratory Rate - - Oxygen Saturation 96% 11/28/2019 11:48 AM CDT Inhaled Oxygen Concentration - - Weight 61.2 kg (135 lb) 11/28/2019 11:48 AM CDT Height 180.3 cm (5' 11 ) 11/28/2019 11:48 AM CDT Body Mass Index 18.83 11/28/2019 11:48 AM CDT documented in this encounter Functional [...] Yes 05/16/2019 documented as of this encounter Patient Instructions * Patient Instructions* Jessie Jade RN - 11/28/2019 12:19 PM CDT Some will call to schedule your testing and follow-up visit with Dr. Membreno. Please call the office with any questions or concerns [phone] documented in this encounter Progress Notes * Ricardo Martínez - 11/28/2019 12:17 PM CDT Vascular Surgery Clinic Progress Note Name: Bi Tabor Age: [age] year old Subjective: Bi Tabor is a 59 year old male with LLE PAD s/p anterior tibial and superficial femoral angioplasty 2019, hx CVA, seizure disorder, HTN who returns to clinic with his sister for follow up of PAD. He reports no acute complaints and no lower extremity pain, numbness, tingling, ornew wounds. He has regular wound care nursing in the facility where he is currently living. Reports he is able to ambulate but is unable to do so much because of limitations on activity and movement in his facility. He quit smoking in March or April 2019. Denies CP, SOB, dysuria, hematuria, BRBPR. Objective: Vitals: 11/28/19 1148 BP: 149/91 Pulse: 85 Temp: 97 ??F (36.1 ??C) SpO2: 96% Weight: 135 lb (61.2 kg) Height: 5' 11 (1.803 m) Physical Exam: General: alert and oriented, NAD Heart: RRR Lungs: unlabored breathing on room air Abdomen: soft, NT/ND Extremities: BLE dry skin with no wounds, using wheelchair Pulses: 2+ radial BL, 2+ right DP, 1+ left DP Current Outpatient Medications Medication Sig ??? acetaminophen (TYLENOL) 325 MG tablet ??? amLODIPine (NORVASC) 5 MG tablet Take 1 tablet by mouth once daily ??? aspirin (ASPIRIN) 81 MG chew tablet Take 1 tablet by mouth once daily ??? atorvastatin (LIPITOR) 20 MG tablet ??? clonazePAM (KLONOPIN) 1 MG tablet Take 1 tablet as needed after a seizure to prevent clustering, every 8 hours as needed. ??? Cyanocobalamin (B-12) 1000 MCG Take 1 mg by mouth once daily ??? divalproex DR (DEPAKOTE) 250 MG tablet Take 250 mg by mouth 3 times daily ??? folic acid (FOLVITE) 1 MG tablet Take 1 tablet by mouth once daily ??? ibuprofen (MOTRIN) 600 MG tablet ??? lacosamide (VIMPAT) 150 MG tablet Take 1 tablet in AM (instead of 200 mg tablet) for 2 weeks then 1 tablet BID (insead of 200 mg tablets) Call with questions. ??? lacosamide (VIMPAT) 200 MG tablet Take 200 mg by mouth 2 times daily ??? levETIRAcetam (KEPPRA) 1000 MG tablet Take 1,000 mg by mouth 2 times daily ??? tamsulosin (FLOMAX) 0.4 MG capsule ??? thiamine (VITAMIN B-1) 100 MG tablet Take 1 tablet by mouth once daily No current facility-administered medications for this visit. Assesment and Plan: Bi Tabor is a 59 year old male with LLE PAD s/p anterior tibial and superficial femoral angioplasty 2019, hx CVA, seizure disorder, HTN who returns to clinic for follow up of PAD. He has no active sx and would like to increase his activity. - Encouraged activity as tolerated. - Schedule LLE LUIZ at earliest convenience. - Follow up appointment in clinic following LUIZ. Ricardo Martínez Medical Student 11/28/2019 12:17 PM Associated attestation - Anna Membreno MD - 11/28/2019 12:37 PM CDT I have verified the documentation of the medical student including all history, exam, and medical decision-making details. I have personally performed a physical exam and have personally reviewed thedata to support my medical decision-making as outlined in the medical student???s note, and I arrive independently at the same conclusion. documented in this encounter Plan of Treatment Upcoming Encounters Date Type Department Care Team (Late st Contact Info) Description 12/05/2024 1:00 PM CDT Office Visit [facility] - Neurology [address] [place] [address], [place] [phone] Sean Raymundo, DO [address] [place] [address] [place] [phone] documented as of this encounter Results * VAS LEFT ARTERIAL DUPLEX LE (12/26/2019 10:50 AM CDT) Anatomical Region Laterality Modality Lower Extremity Intravascular Ul trasound 12/26/2019 9:36 AM CDT Narrative Procedure Note Chai Jay MD - 12/27/2019 Anna Membreno MD [facility] * VAS ARTERIAL ANKLE ARM INDEX (12/26/2019 10:30 AM CDT) Anatomical Region Laterality Modality Ankle / Foot, Upper Extremity In travascular Ultrasound 12/26/2019 9:30 AM CDT Narrative Procedure Note Chai Jay MD - 12/27/2019 Anna Membreno MD [facility]ASCULAR [facility] documented in this encounter Visit Diagnoses Diagnosis PAD (peripheral artery disease) (HCC)- Primary Unspecified disorders of arteries and arterioles PAD (peripheral artery disease) (HCC) Unspecified disorders of arteries and arterioles PAD (peripheral artery disease) (HCC) Unspecified disorders of arteries and arterioles documented in this encounter Care Teams Oliver Filter Operator Relationship Specialty Start Date End Date Misael Maradiaga DO PCP - General 10/03/17 09/15/20 Elizabeth Sullivan, RN Instrumentation Controls Engineer 10/14/17 documented as of this encounter
--- OUTSIDE RECORDS SUMMARY | 2024-06-08 05:42 | XMS_ITS | Encounter Summary ---
Author Organization [facility] Health Address [address] [facility] [place] [address] Care Team Providers Care Professor Of Genetics Name Role Phone Elziabeth Sullivan RN Unavailable [phone] Daryl Barr MD Primary Care Provider [phone] Reason for Visit * Reason Onset Date Comments Update 02/26/2021 Encounter Details Date Type Department Care Team (Late st Contact Info) Description 02/26/2021 Telephone [facility] [address] [facility], [place] [address] Ck Feliciano MD [facility] [place] [address] Update Social History Tobacco Use Types Packs/Day [...] Telephone Encounter - Evy Frost, RN - 02/26/2021 9:32 AM CDT Per request of Dr. Feliciano - sister contacted to follow up on ER visit. Testing completed in ER shows narrowing in a neck artery and patient/family will be contacted to follow up with Stroke physicians. Patient was sent to ER yesterday upon arriving an hour late for scheduled appointment in clinic. The discussion with caregivers that were with patient indicated that patient needs to be seen for new symptoms now or go to ER. The recommendation was to go to ER for evaluation of the new symptoms . Discussed with sister that she will be contacted by the Stroke team staff for an appointment in clinic. She will also be contacted to reschedule the missed appointment in clinic with Dr. Feliciano. She verbalizes understanding. documented in this encounter Plan of Treatment Upcoming Encounters Date Type Department Care Team (Late st Contact Info) Description 12/05/2024 1:00 PM CDT Office Visit [facility] - Neurology [address] [place] [address], [place] [address] Sean Raymundo, [address] [place] [address] [place] [address] documented as of this encounter Visit Diagnoses Not on filedocumented in this encounter Care Teams Professor Of Genetics Relationship Specialty Start Date End Date Daryl Barr MD PCP - General 09/16/20 03/07/22 Elizabeth Sullivan, RN Varsity Baseball Coach 10/14/17 documented as of this encounter
--- OUTSIDE RECORDS SUMMARY | 2024-06-08 05:42 | XMS_ITS | Encounter Summary ---
Author Organization [facility] Health Address [address] [place] [address] Care Team Providers Care Front Office Developer Name Role Phone Misael Maradiaga DO Primary Care Provider Elizabeth Sullivan RN Unavailable [phone] Encounter Details Date Type Department Care Team (Late st Contact Info) Description 11/20/2019 8:30 AM CDT Video Visit [facility] [address] [place] [address] Sean Raymundo DO [address] [place] [id number] Seizure (FORMERLY [facility]) Social History Tobacco Use Types [...] this encounter Patient Instructions * Patient Instructions* Sean Raymundo DO - 11/20/2019 9:09 AM CDT Decrease Vimpat from 200 mg twice daily (current) to Vimpat 150 mg in the AM and 200 mg at night for 2 weeks then Vimpat 150 mg twice daily. Call clinic with questions. Resume higher dose and contact clinic with any concerns for seizure. documented in this encounter Progress Notes * Sean Raymundo DO - 11/20/2019 7:51 AM CDT Epilepsy Clinic- Telephone Note Patient Verification & Telemedicine Based Consent Today's visit was conducted virtually due to COVID-19 countermeasures. The patient has given verbalconsent to have today's visit conducted by this same means with treatment provided remotely. The patient verbally consents to the billing and collection practices of the provider's medical group. PCP Misael Maradiaga Date of Encounter: 11/20/2019 Chief Complaint: Seizures Gait difficulty MRI abnormality AGE OF ONSET 50-year-old SEMIOLOGY - Aura Tingling sensation over the right side - Ictus 1. Dyscongitive events 2. Convulsions, tongue bites - Post-ictus Confusion, aggression, disagreeable, ?paranoia, lasting several days SEIZURE CONTROL Seizure frequency 1. Initially 1 event every 2 weeks, now controlled from 04/2019 2. Initially 1 event every 1 month, now controlled from 04/2019 Date of last seizure 1. Unclear 2. 12/2018, then status epilepticus in 04/2019 suspected due to erratic dosing. MEDICATION Name Pill Size Frequency AED Level Start Levetiractam 1000 mg tab 2 - [address] 250 mg tab 3 - 3 Vimpat 200 tab 1 - 1 Clonazepam [...] LABORATORY RESULTS CBC: Recent Labs Component Name 07/18/19 1139 06/18/19 1426 05/16/19 1151 WBC 6.0 7.1 5.5 HGB 14.5 13.3* 13.3* PLTCOUNT 156 303 178 BMP: Recent Labs Component Name 07/18/19 1139 06/18/19 1426 05/16/19 1151 NA 140 141 137 CO2 27 30* 32* CREATININE 0.9 0.9 0.8 LFT: Recent Labs Component Name 06/18/19 1426 01/24/19 0154 01/22/19 0425 AST 13 13 14 ALT 7 10 12 VITAMIN D: Recent Labs Component Name 05/10/19 0832 01/15/19 0722 [id number] 28.9* 6.7* HPI: - 59 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 Age of onset [id number]. Clinical semiology described as (Aura) tingling sensation [...] BID and Depakote DR 500 mg BID. - Initiated Oxcarbazepine with improved seizure control, but [...] refractory status epilepticus, and AEDs was increased upondischarges. Currently doing better, started to ambulate more. Took about 2 months to return to baseline. Repeated MRI Brain in 05/2019 showed resolution of hypersignal changes. - Vascular Surgery for lower extremity arterial insufficiency. - Since last visit, pt continues to do well from a seizure standpoint (no seizures since 04/2019 per report). However, patient/sister concerned with over- sedation on new medication regimen. He easilyfalls asleep and will drop the phone while talking to his sister. We discussed this may be due to sedation or weakness (C-spine), but pt does not note weakness and has no difficulty with other activities with his hands (eating). We discussed that seizure medications had been increased since before his episode of status epilepticus and patient may have some side effects from that, but decreasing them will put him at increased risk for recurrent seizures. Patient/sister are interested in trying to slowly decrease to improve day to day quality of life. Will begin slow decrease of Vimpat (this drug was most increased following episode of status epilepticus in April). Allergies: No Known Allergies Home Medications: Current [...] on file Social History Narrative Physical Exam: There were no vitals filed for this visit. No exam. 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 Age of onset at 50-year-old. Clinical semiology described as (Aura) tingling sensation over the right side, (Ictus #1) brief dyscognitive events, and (Ictus #2) generalized convulsions, tongue bites. Also has Cervical Osteoarthritis, B12 Deficiency, history of alcohol dependence resolved 2016. - Seizures controlled with Levetiracetam 2000 mg BID, Lacosamide 50 mg BID, and Depakote DR 500 mg BID until 04/2019, until had repetitive seizures and status epilepticus. Etiology suspected due to erratic compliance. Had refractory status epilepticus, and AEDs was increased upon discharges. Currently doing better, started to ambulate more. Currently on Lacosamide 200 mg BID, Depakote DR 750 mg BID, and Levetiracetam 2000 mg BID. Repeated MRI Brain in 05/2019 showed resolution of hypersignal changes. - Pt/sister concerned about over-sedation from increased regimen. Discussed risks and benefits of adjustments. Will decrease Vimpat slightly toward pre- status baseline. From 200 mg BID to 150 mg AM 200 mg HS x 2 weeks then 150 mg BID Fax prescription and instructions to [facility] ([phone]) - Currently pending visit with Vascular Surgery for lower extremity arterial insufficiency (appt inJuly). I have been repeating his C-spine MRIs for surveillance of his C-stenosis every 1 to 2 year.This year, will perform MRI C- spine after finished with Vascular surgery. If there is any concerning changes in C-spine MRI, will refer to Neurosurgery. Post-visit Antiepileptics Levetiractam 1000 mg tab 2 - [address] 250 mg tab 3 - 3 Vimpat 200 mg tab 0 - 1 Vimpat 150 mg tab 1 - 0 Clonazepam 1 mg PRN to prevent clustering Thiamine 100 mg 1 - 0 B12 1000 mcg 1 - 0 Folic 1 mg 1 - 0 I personally spent 25 minutes on the phone with patient, his sister, and his shelter staff of which 20 minutes were spent counseling the patient on diagnosis, treatment option, safety, and therapeutic planning. Sean Raymundo DO documented in this encounter Plan of Treatment Upcoming Encounters Date Type Department Care Team (Late st Contact Info) Description 12/05/2024 1:00 PM CDT Office Visit [facility] - Neurology [address] [place] [address], [place] [address] Sean Raymundo DO [address] [place] [address] [place] [address] documented as of this encounter Visit Diagnoses Diagnosis Seizure (HCC)- Primary Other convulsions documented in this encounter Care Teams Front Office Developer Relationship Specialty Start Date End Date Misael Maradiaga DO PCP - General 10/03/17 09/15/20 Elizabeth Sullivan, ALFRED Recreational Leader 10/14/17 documented as of this encounter
--- OUTSIDE RECORDS SUMMARY | 2024-06-08 05:42 | XMS_ITS | Encounter Summary ---
Author Organization [facility] Address [address] [place] [address] Care Team Providers Care Claim Processor Name Role Phone Misael Maradiaga DO Primary Care Provider Elizabeth Sullivan RN Unavailable Reason for Referral * Radiology Services (Routine) - Closed Specialty Diagnoses / Procedures Referred By Anabella t Referred To Contact Interventional Radiology Diagnoses PVD (peripheral vascular disease) (HCC) Procedures IR ANGIOGRAM LEFT LEG Michele Boone MD [address] [place] [address] [facility] [address] [place] [address] Referral ID Status Reason Start Date Expiration Date Visits Re quested Visits Authorized [id number] Closed 07/18/2019 01/12/2020 1 1 AND ARRIVAL ATTENDANT Reason for Visit * Auth/Cert Specialty Diagnoses / Procedures Referred By Anabella t Referred To Contact Referral ID Status Reason Start Date Expiration Date Visits Re quested Visits Authorized [id number] 1 1 Encounter Details Date Type Department Care Team (Latest Contact Info) Description 07/18/2019 11:03 AM DOOR AND ARRIVAL ATTENDANT - 07/18/2019 11:59 PM DOOR AND ARRIVAL ATTENDANT Hospital Encounter [facility] [address] [place] [phone] Michele Boone MD [address] [place] [address] [facility] Radiology Discharge Disposition: Home or Self Care Social [...] Sign Reading Time Taken Comments Blood Pressure 132/72 07/18/2019 8:00 PM DOOR AND ARRIVAL ATTENDANT Pulse 72 07/18/2019 8:00 PM DOOR AND ARRIVAL ATTENDANT Temperature 37 ??C (98.6 ??F) 07/18/2019 11:54 AM DOOR AND ARRIVAL ATTENDANT Respiratory Rate 16 07/18/2019 8:00 PM DOOR AND ARRIVAL ATTENDANT Oxygen Saturation 100% 07/18/2019 8:00 PM DOOR AND ARRIVAL ATTENDANT Inhaled Oxygen Concentration - - Weight 59.4 kg (131 lb) 07/18/2019 11:54 AM DOOR AND ARRIVAL ATTENDANT Height 180.3 cm (5' 11 ) 07/18/2019 11:54 AM DOOR AND ARRIVAL ATTENDANT Body Mass Index 18.27 07/18/2019 11:54 AM DOOR AND ARRIVAL ATTENDANT documented in this encounter Functional Status Functional [...] Yes 05/16/2019 documented as of this encounter Discharge Instructions * Discharge Instructions* Kush Carmona MD - 07/18/2019 5:40 PM DOOR AND ARRIVAL ATTENDANT Activity & Wound Care: - Walk as tolerated. - No heavy lifting (>10 lbs) for 3 weeks or until cleared at follow up appointment - OK to return to work on light duty only when no longer taking narcotic pain medications - OK to shower 48 hours after surgery. OK to allow soap and water to run over incisions, do not scrub incisions, pat dry. Do not remove surgical glue over incisions, it will fall off on own over time. - Do not soak incisions (baths, swimming) for at least 4 weeks after surgery. Make your follow up appointment with Dr. Membreno in 4 weeks. You will need ABIs before your appointment. Call to make or change your appointment. Pain medication can cause constipation. You may need to take [id number] miralax if you develop constipation. Call MD or return to Emergency Department for the following symptoms: - Fever > 101 F - Worsening abdominal pain that does not improve with pain medicine. - No bowel movement for > 3 days. - Vomiting that does not stop or blood in the vomit. - Pus or blood draining from incisions. - Other concerning signs/symptoms. After hours and weekends: Call tube operator at [phone] and ask that the surgery resident cone tender of your physician be paged. We will return your phone call as soon as we are able. If it is an emergency, call 911 or come to the emergency room; do not wait for a return phone call. 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 30 tablet 5 07/11/2019 08/21/2020 clopidogrel (PLAVIX) 75 MG tablet Take 1 tablet by mouth once daily for 90 days 30 tablet 2 07/18/2019 10/16/2019 Cyanocobalamin (B-12) 1000 MCGIndications:Vitamin B12 deficiency Take 1 mg by mouth once daily 30 capsule 11 10/26/2018 03/12/[address] (DEPAKOTE) 250 MG tablet Take 250 mg by mouth 3 times daily 08/21/2020 folic acid (FOLVITE) 1 MG tabletIndications:Folat e deficiency Take 1 tablet by mouth once daily 30 tablet 11 10/26/2018 03/12/2021 ibuprofen (MOTRIN) 600 MG tablet Take 600 mg by mouth as needed 09/01/2018 01/07/2022 lacosamide (VIMPAT) 200 MG tablet Take 200 mg by mouth 2 times daily 08/21/2020 lacosamide (VIMPAT) 200 MG tablet Take 1 tablet by mouth 2 times daily for 30 days 60 tablet 5 05/16/2019 06/28/2023 levETIRAcetam (KEPPRA) 1000 MG tablet 2 tablets 2 times daily 06/22/2019 09/17/2020 levETIRAcetam (KEPPRA) 1000 MG tablet Take 1,000 mg by mouth 2 times daily 08/21/2020 levETIRAcetam (KEPPRA) 1000 MG tablet Take 2 tablets by mouth 2 times daily for 30 days 120 tablet 5 05/16/2019 01/14/2023 levETIRAcetam (KEPPRA) 1000 MG tabletIndications: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, intractable, without status epilepticus (HCC) Take 2 tablets by mouth 2 times daily for 30 days 120 tablet 5 02/15/2019 01/14/2023 levETIRAcetam (KEPPRA) 750 MG tabletIndications: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 She verbalized understanding. No further questions at this time. AND ARRIVAL ATTENDANT * Aislinn Lozano RN - 07/18/2019 6:45 PM CST Report from Aislinn Harmon RN. Assumed care of the patient at this time. AND ARRIVAL ATTENDANT * Aislinn Thompson RN - 07/18/2019 5:00 PM CST No changes, doing well. Sister & brother and law leaving for dinner, will come back to [facility]els[facility] picker patient at 1999. [facility]-[phone]. AND ARRIVAL ATTENDANT * Aislinn Thompson RN - 07/18/2019 3:30 PM CST To IR holding bay 7 s/p LLE angio w/ plasty via R groin. Placed on monitors, VSS, Report received from Delilah. R groin soft, mild tenderness w/ deep palp. R DP doppler weak R PT Doppler weak; L DP doppler strong, R PT doppler strong. HOB flat, soft RLE reminder restraint in place. Given water and box lunch. AND ARRIVAL ATTENDANT * Delilah Galaviz RN - 07/18/2019 2:10 PM CST Bilateral upper extremity limb safety devices applied. Good pulses, motor, sensory noted in both upper extremities prior to placement. AND ARRIVAL ATTENDANT * Tierra Barrera RN - 07/18/2019 12:00 PM CST Confirmed procedure appointment, voiced understanding. AND ARRIVAL ATTENDANT * Aislinn Thompson RN - 07/18/2019 12:00 PM CST Report to Aislinn Chow Periods of confusion noted-chronic, no other changes. AND ARRIVAL ATTENDANT documented in this encounter H&P Notes * Yasmin Membreno MD - 07/18/2019 12:00 PM CST [facility] Vascular Surgery History and Physical Exam Name: Bi Tabor : 1960 Date of Service: 07/18/19 Attending Surgeon: Yasmin Flanagan MD ID/CC: Peripheral Arterial Disease HPI: This is a 59 year old male with PMH of seizures, HTN, and CVA who was recently evaluated for left 3rd toe pain/discoloration. ABIs demonstrated moderate-severe PAD with R LUIZ of .78 and L LUIZ of.41, CTA with tibial disease. Pt is without claudication, rest pain, tissue loss. He was last seen in clinic on 07/04/2019 and denies recent changes to his health. He denies fevers, chills, nausea, vomiting, diarrhea, chest pain, palpitations, SOB. He presents today for left lower extremity angiogram. Past Medical History: Diagnosis Date ??? CVA (cerebral vascular accident) ??? HTN (hypertension) ??? Seizure No past surgical history on file. No family history on file. Social History Socioeconomic History ??? Marital status: Single Spouse name: Not on file ??? Number of children: Not on file ??? Years of education: Not on file ??? Highest education level: Not on file Occupational History ??? Not on file Social Needs ??? Financial resource strain: Not on file ??? Food insecurity Worry: Not on file Inability: Not on file ??? Transportation needs Medical: Not on file Non-medical: Not on file Tobacco Use ??? Smoking status: Former Smoker Packs/day: 1.00 Years: 15.00 Pack years: 15.00 ??? Smokeless tobacco: Never Used Substance and Sexual Activity ??? Alcohol use: No Comment: last drink 2015 ??? Drug use: No Comment: occasional ??? Sexual activity: Not Currently Lifestyle ??? Physical activity Days per week: Not on file Minutes per session: Not on file ??? Stress: Not on file Relationships ??? Social connections Talks on phone: Not on file Gets together: Not on file Attends alevism service: Not on file Active member of club or organization: Not on file Attends meetings of clubs or organizations: Not on file Relationship status: Not on file ??? Intimate partner violence Fear of current or ex partner: Not on file Emotionally abused: Not on file Physically abused: Not on file Forced sexual activity: Not on file Other Topics Concern ??? Not on file Social History Narrative ??? Not on file No Known Allergies Current Outpatient Medications: ??? acetaminophen (TYLENOL) 325 MG tablet, , Disp: , Rfl: ??? amLODIPine (NORVASC) 5 MG tablet, Take 1 tablet by mouth once daily, Disp: 30 tablet, Rfl: 0 ??? aspirin (ASPIRIN) 81 MG chew tablet, Take 1 tablet by mouth once daily, Disp: 30 tablet, Rfl: 0 ??? atorvastatin (LIPITOR) 20 MG tablet, , Disp: , Rfl: ??? clonazePAM (KLONOPIN) 1 MG tablet, Take 1 tablet as needed after a seizure to prevent clustering, every 8 hours as needed., Disp: 30 tablet, Rfl: 5 ??? Cyanocobalamin (B-12) 1000 MCG, Take 1 mg by mouth once daily, Disp: 30 capsule, Rfl: 11 ??? divalproex DR (DEPAKOTE) 250 MG tablet, Take 250 mg by mouth 3 times daily, Disp: , Rfl: ??? folic acid (FOLVITE) 1 MG tablet, Take 1 tablet by mouth once daily, Disp: 30 tablet, Rfl: 11 ??? ibuprofen (MOTRIN) 600 MG tablet, , Disp: , Rfl: ??? lacosamide (VIMPAT) 200 MG tablet, Take 200 mg by mouth 2 times daily, Disp: , Rfl: ??? levETIRAcetam (KEPPRA) 1000 MG tablet, Take 1,000 mg by mouth 2 times daily, Disp: , Rfl: ??? tamsulosin (FLOMAX) 0.4 MG capsule, , Disp: , Rfl: ??? thiamine (VITAMIN B-1) 100 MG tablet, Take 1 tablet by mouth once daily, Disp: 30 tablet, Rfl: 11 Objective: Labs: Recent Labs Component Name 07/18/19 1139 06/18/19 1426 05/16/19 1151 WBC 6.0 7.1 5.5 HGB 14.5 13.3* 13.3* HCT 43.9 42.0 40.6 MCV 95.2 96.8 96.0 Recent Labs Component Name 06/18/19 1426 05/16/19 1151 05/15/19 0911 05/14/19 0357 NA 141 137 140 140 CL 104 99 102 104 CO2 30* 32* 25 24 BUN 16 16 12 12 CREATININE 0.9 0.8 0.8 0.6 CALCIUM 10.0 9.2 9.5 9.7 MAGNESIUM - 2.1 1.9 1.8 PHOS - 2.7 3.0 3.1 Recent Labs Component Name 06/18/19 1426 01/24/19 0154 01/22/19 0425 01/30/18 1255 10/14/17 1349 10/13/17 1526 PROT 7.8 6.9 7.4 - 6.9 - 7.0 8.4* ALB 3.2* 4.0 4.4 - 3.7 - 3.9 4.8 TBILI 0.3 0.3 0.5 - 0.4 - 0.6 1.4* DBILI - - - - 0.2 - 0.2 0.4 AST 13 13 14 - 14 - 18 23 ALT 7 10 12 - 10 - 9 11 ALKPHOS 76 80 65 - 75 - 86 88 - = values in this interval not displayed. Recent Labs Component Name 04/11/15 0622 INR 0.9 No results for input(s): PHART, PO2ART, DGU6AMI, BEART in the last 38769 hours. No intake/output data recorded. Imaging: No results found. Review of Systems: Constitutional: Denies fever, chills, weight loss Eyes: Denies visual changes ENT/Mouth: Denies hearing loss Cardiovascular: Denies chest pain/tightness Resp: Denies wheezing, cough GI: Denies constipation, diarrhea, nausea/voming Ascites w/in 30 days: No : Denies dysuria, hematuria Musculoskeletal: Denies arthritis, back pain, or difficulty walking Neurological: Denies headaches Psychiatric: Denies depression Hem/Lymph: Denies, easy bruising, DVT or PE, bleeding or clotting disorders Physical Exam: BP 154/84 Pulse 78 Temp 98.6 ??F (37 ??C) Resp 19 Ht 5' 11 (1.803 m) Wt 131 lb (59.4 kg) SpO2 96% BMI 18.27 kg/m2 Gen: This is a well appearing male. HEENT: Head NC/AT. EOMI. Neck without deformity, poor dentition CV: Limbs WWP Pulm: Non labored breathing on room air. Abdomen: Soft, non distended. No tenderness to palpation. Not peritoneal. Extremities: No BLE edema Pulses: palpable femorals, left pedal pulses are not palpable MSK: No obvious trauma Skin: No rashes Neuro: ADORE Psych: Appropriate affect Assessment: This is a 59 year old male with PMH of seizures, HTN, and CVA who was recently evaluated for left 3rd toe pain/discoloration, found to have moderate-severe LLE PAD and tibial disease. Plan: -To angio suite for left lower extremity angiogram with possible intervention -R/B/A discussed with the patient, he understands and wishes to proceed with surgery, POA signed consent form -labs pending Sedation Risk Assessment Any oral intake after midnight? No Time of last oral intake: 0600 Previous adverse reaction to conscious sedation or other types of anesthesia? No Aspiration risk? No History of substance abuse? No Possibility of ? No History of stridor, snoring, disturbed sleep or obstructive sleep apnea? No History of oropharyngeal surgery? No History of chronic analgesic drugs? No History of gastric outlet obstruction, intestinal obstruction or hiatal hernia? No ASA physical status classification: ASA 3 - Patient with moderate systemic disease with functional limitations Sedation Plan: Moderate sedation The procedure, its risk, benefits and alternatives have been discussed with the patient and/or family and informed consent has been obtained. Michele Boone MD Resident Physician [facility] Department of Surgery 07/18/2019 12:33 PM I have verified the documentation of the resident including all history, exam, and medical decision-making details. I have personally performed a physical exam and have personally reviewed the data to support my medical decision-making as outlined in the resident???s note, and I arrive independently at the same conclusion. AND ARRIVAL ATTENDANT documented in this encounter Procedure Notes * Yasmin Membreno MD - 07/18/2019 12:00 PM CST Pre-Sedation Note Bi Tabor is a 59 year old male born on 1960 Unit where the procedure was preformed: ir H&P I have reviewed this H&P written on 07/19/19 and there are no significant changes since the timeof the exam. Pertinent review of system Cardiac - no chest pain or dyspnea on exertion Resp - no cough, shortness of breath, or wheezing Patient status - alert Allergies No Known Allergies Home Meds (Not in a hospital admission) Patient Active Problem List: Seizure Headache, unspecified headache type Hyponatremia Anxiety Cerebrovascular accident Hyperlipidemia Hypertension Insomnia Laceration Low back pain Osteoporosis Truncal ataxia Vitals: 07/18/19 1154 BP: 154/84 Pulse: 78 Resp: 19 Temp: 98.6 ??F (37 ??C) SpO2: 96% Weight: 59.4 kg (131 lb) Height: 1.803 m (5' 11 ) Status Test none Anesthesis History past endotracheal intubation without difficulties History of airway problems: none Expected Level: Moderate Sedation Indication: Sedation is required to allow for angiogram. Consent: Risks, benefits and alternatives were discussed with patient and consent for procedure wasobtained. PO Intake: Regular Meal > 8 hours ASA Class: Class 3 - Severe Systemic Disease, Definite Functional Limitations Mallampati: Grade 1: Soft palate, uvula, tonsillar pillars, and posterior pharyngeal wall visible. Medication: Lidocaine: Local infiltration, Fentanyl: IV and Ativan: IV. Immediate Pre-Procedure Assessment: Review of vital signs:Yes Patient reports or my clinical evaluation indicates there have been no changes in the patient's condition prior to the start of the procedure: Yes AND ARRIVAL ATTENDANT * Yasmin Membreno MD - 07/18/2019 12:00 PM CST Post Sedation Note Bi Tabor is a 59 year old male born on 1960 Unit that procedure is to be preformed: ir Pre-Procedure Diagnosis: claudication lle Procedure: angiogram Post Procedure Diagnosis: same Complications: none Monitoring: Monitoring consisted of: heart rate, athletic monitor, continuous pulse oximetry, frequent blood pressure checks, level of consciousness, IV access, constant attendance by RN until patientrecovered, constant attendance by MD until patient stable and intubation and emergency airway equipment available. Response: Vital signs stable, airway patent and O2 saturations greater than 92%. Patient Status Post Procedure: Activity: Able to move four extremities voluntarily on command = 2 Respiration: Able to breathe deeply and cough freely = 2 Circulation: Blood pressure +/- 20mm Hg of normal = 2 Consciousness: Fully awake =2 Color: 2 - color is WNL Ramon Score: 10 Temperature: Normalthermic Pain: 0 Post sedation nausea & vomiting present: no nausea Post-sedation hydration status Is adequate: Yes Total Physician Drug Administration / Monitoring Time: 50 minutes. Patient was monitored during recovery and returned to pre-procedure baseline. Discharge plan: OPS AND ARRIVAL ATTENDANT * Kush Carmona MD - 07/18/2019 12:00 PM CSTProcedure(s): IR ANGIO EXTREMITY LEFT Pre-Procedure Diagnose(s): PAD (peripheral artery disease) (HCC) Post-Procedure Diagnose(s): PAD (peripheral artery disease) (HCC) Vascular Surgery Brief Procedure Note Patient Name: Bi Tabor Date of Procedure: 07/18/2019 Procedure: 1. Ultrasound guided access of the right femoral artery 2. Aortoiliofemoral angiogram 3. Left lower extremity angiogram 4. Third order vessel cannulation 5. Balloon angioplasty left anterior tibial artery 6. Balloon angioplasty left superficial femoral artery Attending: Yasmin Membreno MD Oil Changer: Kush Carmona MD Complications: None Sedation Start Time: 1356 End Time: 1500 Sedation Utilized: 100 mcg fentanyl, 2 mg versed Contrast Utilized: 105cc Isovue 300 Impression: Left superficial femoral artery with focal >75% stenosis, left anterior tibial artery with two short segment >90% stenoses. < 25% residual stenosis status post balloon angioplasty. Details: Full procedure note to follow, images in Synapse and EPIC (Results/Interventional) Kush Carmona MD 07/18/2019 3:58 PM AND ARRIVAL ATTENDANT documented in this encounter Plan of Treatment Upcoming Encounters Date Type Department Care Team (Late st Contact Info) Description 12/05/2024 1:00 PM CDT Office Visit [facility] - Neurology [address] [place] [address], [place] [phone] Sean Raymundo, DO [address] [place] [address] documented as of this encounter Procedures Procedure Name Priority Date/Time Associated Diagnosis Comments IR ANGIOGRAM LEFT LEG Routine 07/18/2019 3:31 PM DOOR AND ARRIVAL ATTENDANT PVD (peripheral vascular disease) (HCC) PT-INR [facility] STAT 07/18/2019 11:39 AM DOOR AND ARRIVAL ATTENDANT PVD (peripheral vascular disease) (HCC) CBC W/O DIFFERENTIAL STAT 07/18/2019 11:39 AM DOOR AND ARRIVAL ATTENDANT PVD (peripheral vascular disease) (HCC) Therapeutic procedure BASIC METABOLIC PANEL (CALCIUM TOTAL) STAT 07/18/2019 11:39 AM DOOR AND ARRIVAL ATTENDANT PVD (peripheral vascular disease) (HCC) Therapeutic procedure documented in this encounter Results * IR ANGIOGRAM LEFT LEG (07/18/2019 3:31 PM DOOR AND ARRIVAL ATTENDANT) Anatomical Region Laterality Modality Lower Extremity X-Ray Angiograph y 07/18/2019 3:11 PM DOOR AND ARRIVAL ATTENDANT Impressions 07/18/2019 3:15 PM DOOR AND ARRIVAL ATTENDANT stenosis impression: IMPRESSION: Successful angioplasty of anterior tibial artery and superficial femoral artery This report was electronically signed by YASMIN MEMBRENO M.D. ??on 07/18/2019 3:15 PM . Narrative 07/18/2019 3:15 PM DOOR AND ARRIVAL ATTENDANT Preprocedure diagnosis ischemic left lower extremity Postprocedure diagnosis same Procedure performed is right common femoral artery access with ultrasound guidance. third order selective catheter placement. Primary angioplasty of anterior tibial artery. Primary angioplastied superficial femoral artery Surgeon is Yasmin Membreno md and kush carmona Anesthesia: 75 mcg fentanyl IV and 1 mg of Versed, 8 mL lidocaine right groin Contrast used 50 mL Technical details: The common femoral artery was access via Seldinger technique and a 6 Luxembourger sheath was placed. A combination of Omni Flush catheter and Glidewire were used to come up and over. Once the catheter was in the superficial femoral artery the system was changed out to a stiff wire. In up and over sheath of 6 Luxembourger was then placed. Images of left lower [...] artery stenosis, superficial femoral artery Procedure Note Yasmin Membreno MD - 07/18/2019 Preprocedure diagnosis ischemic left lower extremity Postprocedure diagnosis same Procedure performed is right common femoral artery access withultrasound guidance. third order selective catheter placement. Primary angioplastyof anterior tibial artery. Primary angioplastied superficial femoral artery Surgeon is Yasmin Membreno md and kush carmona Anesthesia: 75 mcg fentanyl IV and 1 mg of Versed, 8 mL lidocaine right groin Contrast used 50 mL Technical details: The common femoral artery was access via Seldinger technique and a 6 Luxembourger sheath was placed. A combination of Omni Flush catheter and Glidewire were used to come up and over. Once the catheter was in the superficial femoral artery the system was changed out to a stiff wire. In up and over sheath of 6 Luxembourger was then placed. Images of left lower [...] artery This report was electronically signed by YASMIN MEMBRENO M.D. on 07/18/2019 3:15 PM . Michele Boone MD IR ORDERABLES * CBC W/O DIFFERENTIAL (07/18/2019 11:39 AM DOOR AND ARRIVAL ATTENDANT) WBC 6.0 3.5 - 10.5 10? 3 /uL 07/18/2019 12:25 PM [facility] RBC 4.61 4.30 - 5.70 10? 6 /uL 07/18/2019 12:25 PM [facility] Hemoglobin 14.5 13.5 - 17.5 g/dL 07/18/2019 12:25 PM [facility] Hematocrit 43.9 39.0 - 50.0 % 07/18/2019 12:25 PM [facility] MCV 95.2 81.0 - 97.0 fL 07/18/2019 12:25 PM [facility] MCH 31.5 28.0 - 34.0 pg 07/18/2019 12:25 PM [facility] MCHC 33.0 32.0 - 36.0 g/dL 07/18/2019 12:25 PM [facility] Platelet Count 156 150 - 400 10? 3 /uL 07/18/2019 12:25 PM [facility] RDW-SD 47.8 36.0 - 50.0 fL 07/18/2019 12:25 PM [facility] RDW-CV 13.5 11.2 - 14.8 % 07/18/2019 12:25 PM [facility] MPV 11.1 9.3 - 12.8 fL 07/18/2019 12:25 PM [facility] nRBC Absolute 0.00 0 10? 3 /uL 07/18/2019 12:25 PM [facility] nRBC Auto 0.0 0 /100 WBC 07/18/2019 12:25 PM [facility] Blood BLOOD SPECIMEN / Unknown Venipuncture / Unknown 07/18/2019 11:39 AM DOOR AND ARRIVAL ATTENDANT 07/18/2019 12:21 PM DOOR AND ARRIVAL ATTENDANT Michele Boone MD LAB - HEMATOLOGY ORD ERABLES [facility] [address] [phone] * BASIC METABOLIC PANEL (CALCIUM TOTAL) (07/18/2019 11:39 AM DOOR AND ARRIVAL ATTENDANT) BUN 20 7 - 26 mg/dL 07/18/2019 12:45 PM [facility] Creatinine 0.9 0.6 - 1.2 mg/dL 07/18/2019 12:45 PM [facility] Sodium 140 136 - 145 mmol/L 07/18/2019 12:45 PM [facility] Potassium 4.5 3.5 - 4.5 mmol/L 07/18/2019 12:45 PM [facility] Chloride 104 98 - 107 mmol/L 07/18/2019 12:45 PM [facility] CO2 27 22 - 29 mmol/L 07/18/2019 12:45 PM [facility] Glucose 102 70 - 115 mg/dL 07/18/2019 12:45 PM [facility] [facility] Calcium 9.6 8.4 - 10.2 mg/dL 07/18/2019 12:45 PM [facility] Anion Gap 14 8 - 18 07/18/2019 12:45 PM [facility] BUN/Creatinine Ratio 22 7 - 23 07/18/2019 12:45 PM [facility] Osmolality Calculated 293 270 - 300 mOsm/kg 07/18/2019 12:45 PM DOOR AND ARRIVAL ATTENDANT [facility] eGFR >60 >60 mL/min/1.7 3 m2 07/18/2019 12:45 PM DOOR AND ARRIVAL ATTENDANT [facility] Blood BLOOD SPECIMEN / Unknown Venipuncture / Unknown 07/18/2019 11:39 AM DOOR AND ARRIVAL ATTENDANT 07/18/2019 12:21 PM DOOR AND ARRIVAL ATTENDANT Michele Boone MD LAB - CHEMISTRY ORDE RABSHILPA Performing Organization Address [facility] de Phone Number [address] [phone] * PT-INR [facility] (07/18/2019 11:39 AM DOOR AND ARRIVAL ATTENDANT) PT 12.9 12.1 - 14.8 Seconds 07/18/2019 1:00 PM [facility] INR 1.0 See Comment 07/18/2019 1:00 PM [facility] Comment:The suggested therap eutic range for standard coumadin (warfarin) therapy is an INR of 2.0-3.0. For high-risk patients (Mechanical Mitral Valve Prosthesis, etc.), the suggested prophylactic therapeutic range is an INR of 2.5-3.5. Blood BLOOD SPECIMEN / Unknown Venipuncture / Unknown 07/18/2019 11:39 AM DOOR AND ARRIVAL ATTENDANT 07/18/2019 12:21 PM DOOR AND ARRIVAL ATTENDANT Michele Boone MD LAB - COAGULATION OR DERABLES Performing Organization Address [facility] Co de Phone Number [address] [phone] documented in this encounter Visit Diagnoses Diagnosis Therapeutic procedure- Primary Unspecified rehabilitation procedure PVD (peripheral vascular disease) (HCC) Peripheral vascular disease, unspecified documented in this encounter Administered Medications Inactive Administered Medications - up to 3 most recent administrations Medication Order MAR Action Action Date Dose Rate Site 0.9% NaCl infusion Intravenous, CONTINUOUS PRN, Starting on Tue07/18/19 at 1345, Until Tue07/18/19 at 1345 $ New Bag/Syringe 07/18/2019 1:45 PM DOOR AND ARRIVAL ATTENDANT 10 mL/hr 10 mL/hr fentaNYL (PF) (SUBLIMAZE) injection Intravenous, ONCE PRN, Starting on Tue07/18/19 at 1355, Until Tue07/18/19 at 1458 $ Given 07/18/2019 2:58 PM DOOR AND ARRIVAL ATTENDANT 25 mcg $ Given 07/18/2019 2:38 PM DOOR AND ARRIVAL ATTENDANT 25 mcg $ Given 07/18/2019 1:55 PM DOOR AND ARRIVAL ATTENDANT 50 mcg heparin injection ONCE PRN, Starting on Tue07/18/19 at 1405, Until Tue07/18/19 at 1405 $ Given 07/18/2019 2:05 PM DOOR AND ARRIVAL ATTENDANT 5,000 Units iopamidol (ISOVUE 300) 61 % contrast ONCE PRN, Starting on Tue07/18/19 at 1513, Until Tue07/18/19 at 1513 $ Given 07/18/2019 3:13 PM DOOR AND ARRIVAL ATTENDANT 105 mL midazolam (VERSED) injection Intravenous, ONCE PRN, Starting on Tue07/18/19 at 1355, Until Tue07/18/19 at 1458 $ Given 07/18/2019 2:58 PM DOOR AND ARRIVAL ATTENDANT 1 mg $ Given 07/18/2019 1:55 PM DOOR AND ARRIVAL ATTENDANT 1 mg protamine injection Intravenous, ONCE PRN, Starting on Tue07/18/19 at 1501, Until Tue07/18/19 at 1501 $ Given 07/18/2019 3:01 PM CS T 20 mg documented in this encounter Care Teams Claim Processor Relationship Specialty Start Date End Date Misael Maradiaga DO PCP - General 10/03/17 09/15/20 Elizabeth Sullivan, ALFRED Cyber Systems Administrator 10/14/17 documented as of this encounter
--- OUTSIDE RECORDS SUMMARY | 2024-06-08 05:42 | XMS_ITS | Encounter Summary ---
Author Organization [facility] Health Address [address] [facility] [place] [address] Care Team Providers Care Mosquito Sprayer Name Role Phone Elizabeth Sullivan RN Unavailable [phone] Daryl Barr MD Primary Care Provider [phone] Reason for Visit * Reason Onset Date Comments Concerns 02/27/2021 Encounter Details Date Type Department Care Team (Late st Contact Info) Description 02/27/2021 Telephone [facility] [address] [facility], [place] [address] Ck Feliciano MD [facility] [place] [address] Concerns Social History Tobacco Use Types Packs/Day [...] encounter Miscellaneous Notes * Telephone Encounter - Meera Charles LPN - 03/02/2021 3:01 PM CDT Spoke with Willa at the nursing facility and she said pt will keep the appt with Dr. Feliciano on 03/12. She is going to have the person responsible for transportation and scheduling appts contact this nurse so the vascular lab testing and appt with Dr. Frederick can be scheduled on the same day, at a later time. * Telephone Encounter - Meera Charles LPN - 03/02/2021 10:22 AM CDT eric Ratliff - The pt will need a CUS and TCD prior to seeing Dr. Frederick. I had asked the facility to schedule these tests on a Tuesday so the pt could see Dr. Frederick on the same day. It looks like they havescheduled the tests on a Tuesday, March 30, so I will f/u with the nursing staff to see how they would like to proceed. Kortney Chin * Telephone Encounter - Evy Frost, RN - 03/02/2021 9:57 AM CDT Spoke to Sean at Facility. Patient had Clonazepam discontinued on 02/27/21. Tentative appointment scheduled on 03/12/[address] Feliciano. She states that the facility is trying to coordinate his visit with the Stroke service the same day as recommended procedures to evaluate the blockage in his neck arteries. Name and number provided to contact if appointment with Dr. Feliciano needs to be rescheduled due to need to see Stroke service. * Telephone Encounter - Gaviota Corley - 02/27/2021 2:44 PM CDT Pt's sister called regarding the clonazepam dosing the facility is giving him. It is causing him great anxiety and acting psychotic , she states it is way too much for him and he's scared he is dieing . She would really appreciate a call. documented in this encounter Plan of Treatment Upcoming Encounters Date Type Department Care Team (Late st Contact Info) Description 12/05/2024 1:00 PM CDT Office Visit [facility] - Neurology [address] [place] [address], [place] [phone] Sean Raymundo, DO [address] [place] [address] [place] [phone] documented as of this encounter Visit Diagnoses Not on filedocumented in this encounter Care Teams Mosquito Sprayer Relationship Specialty Start Date End Date Daryl Barr MD PCP - General 09/16/20 03/07/22 Elizabeth Sullivan, RN Practice Assistant 10/14/17 documented as of this encounter
--- OUTSIDE RECORDS SUMMARY | 2024-06-08 05:42 | XMS_ITS | Encounter Summary ---
Author Organization [facility] Health Address [address] [facility] [place] [address] Care Team Providers Care Inpatient Services Rn Name Role Phone Misael Maradiaga DO Primary Care Provider Elizabeth Sullivan RN Unavailable [phone] Reason for Visit * Reason Comments Seizure Encounter Details Date Type Department Care Team (Late st Contact Info) Description 03/19/2020 10:00 AM CDT Office Visit [facility] [address] [place] [address], [place] [address] Sean Raymundo DO [address] [place] [address] [place] [address] Seizure (HCC) (Primary Dx); Spinal stenosis of cervical region Social History Tobacco Use Types Packs/Day Years [...] Sign Reading Time Taken Comments Blood Pressure 132/80 03/19/2020 10:22 AM CDT Pulse 75 03/19/2020 10:22 AM CDT Temperature 36.3 ??C (97.4 ??F) 03/19/2020 10:22 AM C DT Respiratory Rate - - Oxygen Saturation 97% 03/19/2020 10:22 AM CDT Inhaled Oxygen Concentration - - Weight 62.1 kg (137 lb) 03/19/2020 10:22 AM CDT Height 180.3 cm (5' 11 ) 03/19/2020 10:22 AM CDT Body Mass Index 19.11 03/19/2020 10:22 AM CDT documented in this encounter Functional [...] this encounter Patient Instructions * Patient Instructions* Arlen Arguelles MD - 03/19/2020 11:04 AM CDT Continue same medication and some doses Make sure to ask the correction about the Vimpat dose and let the office know what dose of Vimpathe is taking Follow up in 6 months documented in this encounter Progress Notes * Sean Raymundo DO - 03/19/2020 10:56 AM CDT Epilepsy Clinic Note PCP Misael Maradiaga Date of Encounter: 03/19/2020 Chief Complaint: Seizures Gait difficulty MRI abnormality [...] Labs Component Name 05/10/19 0832 01/15/19 0722 [id number] 28.9* 6.7* Brief History: - 60 year old man with PMH of alcohol [...] following episode of status epilepticus in April). Interval History: Last visit was a phone call visit in 2019. He was continued on Keppra 2000 mg BID, Depakote 750 mg BID and Vimpat dose was reduced to 150 mg AM and 200 mg PM, but it is not sure if the nursing homewhere the pt lives has reduced the dose as instructed or continued on the same prior dose 200 mg BID. Last seizure was in 04/2019. Allergies: No Known Allergies Home Medications: Current [...] file Social History Narrative Physical Exam: Vitals: 03/19/20 1022 BP: 132/80 Pulse: 75 Temp: 97.4 ??F (36.3 ??C) SpO2: 97% Weight: 137 lb (62.1 kg) Height: 5' 11 (1.803 m) General Awake, [...] Assessment/Plan: ## Focal seizures with secondary generalizations. Controlled seizures. Continue same medication and doses Post-visit Antiepileptics Levetiractam 1000 mg tab 2 - [address] 250 mg tab 3 - 3 Vimpat 200 mg tab 1 - 1 (will modify the dose after verifying with the nursing the exact dose he istaking Clonazepam 1 mg PRN to prevent clustering ?? 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 I agree with the findings and plan as outlined in the resident note. I personally spent 25 minutes with the patient of which 15 were spent counseling the patient on need for continued follow up, need to correct AED dosage, and possibility of decreasing in the future. documented in this encounter Plan of Treatment Upcoming Encounters Date Type Department Care Team (Late st Contact Info) Description 12/05/2024 1:00 PM CDT Office Visit [facility] - Neurology [address] [place] [address], [place] [address] Sean Raymundo DO [address] [place] [phone] documented as of this encounter Visit Diagnoses Diagnosis Seizure (HCC)- Primary Other convulsions Spinal stenosis of cervical region Spinal stenosis in cervical region documented in this encounter Care Teams Inpatient Services Rn Relationship Specialty Start Date End Date Misael Maradiaga DO PCP - General 10/03/17 09/15/20 Elizabeth Sullivan, RN Interactive Media Marketing Strategist 10/14/17 documented as of this encounter
--- OUTSIDE RECORDS SUMMARY | 2024-06-08 05:42 | XMS_ITS | Encounter Summary ---
Author Organization [facility] Health Address [address] [facility] [place] [address] Care Team Providers Care Meter Installer And Remover Name Role Phone Misael Maradiaga DO Primary Care Provider Elizabeth Sullivan RN Unavailable [phone] Reason for Visit * Radiology Services (Routine) - Closed Specialty Diagnoses / Procedures Referred By Contac t Referred To Contact Vascular Lab Diagnoses PAD (peripheral artery disease) (HCC) Procedures VAS LEFT ARTERIAL DUPLEX Anna Song MD [address] [facility] 2L [place] [address] [facility] [address] [place] [address] Referral ID Status Reason Start Date Expiration Date Visits Re quested Visits Authorized [id number] Closed 11/28/2019 11/27/2020 1 1 Encounter Details Date Type Department Care Team (Latest Contact Info) Description 12/26/2019 9:00 AM CDT - 12/26/2019 9:10 AM CDT Hospital Encounter [facility] [address] [place] [address] Anna Membreno MD [address] [facility] 2L [place] [address] Discharge Disposition: Home or Self [...] have Coronavirus / COVID-19? Unable to assess 12/26/2019 8:53 AM CDT documented as of this encounter [...] Yes 05/16/2019 documented as of this encounter Medications at [...] as needed. 30 tablet 5 07/11/2019 08/21/2020 Cyanocobalamin (B-12) 1000 MCGIndications:Vitamin B12 deficiency Take [...] mouth as needed 09/01/2018 01/07/2022 lacosamide (VIMPAT) 150 MG tablet Take 1 tablet in AM (instead of 200 mg tablet) for 2 weeks then 1 tablet BID (insead of 200 mg tablets) Call with questions. 60 tablet 5 11/20/2019 08/21/2020 lacosamide (VIMPAT) 200 MG tablet Take 200 [...] 10/26/2018 03/12/2021 documented as of this encounter Plan of Treatment Upcoming Encounters Date Type Department Care Team (Late st Contact Info) Description 12/05/2024 1:00 PM CDT Office Visit [facility] - Neurology [address] [facility], [place] [address] Sean Raymundo, [address] [place] [phone] documented as of this encounter Procedures Procedure Name Priority Date/Time Associated Diagnosis Comments VAS LEFT ARTERIAL DUPLEX LE Routine 12/26/2019 10:50 AM CDT PAD (peripheral artery disease) (HCC) documented in this encounter Results * VAS LEFT ARTERIAL DUPLEX LE (12/26/2019 10:50 AM CDT) Anatomical Region Laterality Modality Lower Extremity Intravascular Ul trasound 12/26/2019 9:36 AM CDT Narrative Procedure Note Chai Jay MD - 12/27/2019 Anna Membreno MD [facility]ASC[facility] documented in this encounter Visit Diagnoses Diagnosis PAD (peripheral artery disease) (HCC) Unspecified disorders of arteries and arterioles documented in this encounter Care Teams Meter Installer And Remover Relationship Specialty Start Date End Date Misael Maradiaga DO PCP - General 10/03/17 09/15/20 Elizabeth Sullivan, RN Lot Associate 10/14/17 documented as of this encounter
--- OUTSIDE RECORDS SUMMARY | 2024-06-08 05:42 | XMS_ITS | Encounter Summary ---
Author Organization [facility] Health Address [address] [facility] [address] Care Team Providers Care Phytopathologist Name Role Phone Misael Maradiaga DO Primary Care Provider Elizabeth Sullivan RN Unavailable [phone] Encounter Details Date Type Department Care Team (Latest Contact Info) Description 03/27/2020 Travel Social History Tobacco Use Types Packs/Day [...] have Coronavirus / COVID-19? Unable to assess 03/27/2020 3:35 PM CDT documented as of this encounter [...] Yes 05/16/2019 documented as of this encounter Plan of Treatment Upcoming Encounters Date Type Department Care Team (Late st Contact Info) Description 12/05/2024 1:00 PM CDT Office Visit [facility] - [facility]rology [address] [facility], [place] [address] Sean Raymundo DO [address] [place] [address] [place] [phone] documented as of this encounter Visit Diagnoses Not on filedocumented in this encounter Care Teams Phytopathologist Relationship Specialty Start Date End Date Misael Maradiaga DO PCP - General 10/03/17 09/15/20 Elizabeth Sullivan, RN Tiler 10/14/17 documented as of this encounter
--- OUTSIDE RECORDS SUMMARY | 2024-06-08 05:42 | XMS_ITS | Encounter Summary ---
Author Organization [facility] Health Address [address] [facility] [place] [address] Care Team Providers Care Manager Strategic Alliances Name Role Phone Misael Maradiaga DO Primary Care Provider Elizabeth Sullivan RN Unavailable [phone] Encounter Details Date Type Department Care Team (Latest Contact Info) Description 04/14/2020 Travel Social History Tobacco Use Types Packs/Day [...] have Coronavirus / COVID-19? Unable to assess 04/14/2020 7:42 AM HOLTER TECHNICIAN documented as of this encounter Functional Status [...] Visit [facility] [address] [facility], [place] [address] Sean Raymundo DO [address] [place] [place] [address] [place] [phone] documented as of this encounter Visit Diagnoses Not on filedocumented in this encounter Care Teams Manager Strategic Alliances Relationship Specialty Start Date End Date Misael Maradiaga DO PCP - General 10/03/17 09/15/20 Elizabeth uSllivan, ALFRED Esthetician And Manager Medical Spa 10/14/17 documented as of this encounter
--- OUTSIDE RECORDS SUMMARY | 2024-06-08 05:42 | XMS_ITS | Encounter Summary ---
Author Organization [facility] Health Address [address] [facility] [place] [address] Care Team Providers Care Scientific Software Engineer Name Role Phone Misael Maradiaga DO Primary Care Provider Elizabeth Sullivan RN Unavailable [phone] Reason for Visit * Reason Onset Date Comments Seizure 08/15/2020 Encounter Details Date Type Department Care Team (Late st Contact Info) Description 08/15/2020 Telephone [facility] [address] [facility], [place] [address] Sean Raymundo DO [facility] [address] Seizure Social History Tobacco Use Types [...] Yes 05/16/2019 documented as of this encounter Miscellaneous Notes * Telephone Encounter - Gaviota Corley - 08/15/2020 12:12 PM CDT Pt's sister is calling because she is very concerned about her brother. He was admitted to manage medications but had multiple seizures yesterday and they are wanting to restrain him. She is very confused and worried- RN didn't have much information and seemed frazzled . Can someone please call her? documented in this encounter Plan of Treatment Upcoming Encounters Date Type Department Care Team (Late st Contact Info) Description 12/05/2024 1:00 PM CDT Office Visit [facility] - Neurology [address] [place] [address], [place] [address] Sean Raymundo DO [address] [place] [address] [place] [phone] documented as of this encounter Visit Diagnoses Not on filedocumented in this encounter Care Teams Scientific Software Engineer Relationship Specialty Start Date End Date Misael Maradiaga DO PCP - General 10/03/17 09/15/20 Elizabeth Sullivan, ALFRED Resin Mixer 10/14/17 documented as of this encounter
--- OUTSIDE RECORDS SUMMARY | 2024-06-08 05:42 | XMS_ITS | Encounter Summary ---
Author Organization [facility] Health Address [address] [facility] [place] [address] Care Team Providers Care Gas Generator Operator Name Role Phone Misael Maradiaga DO Primary Care Provider Elizbaeth Sullivan RN Unavailable [phone] Reason for Visit * Reason Onset Date Comments Consultation 08/06/2020 Encounter Details Date Type Department Care Team (Late st Contact Info) Description 08/06/2020 Telephone [facility] [address] [facility], [place] [address] Sean Raymundo DO [address] [place] [address] [place] [address] Consultation Social History Tobacco Use Types Packs/Day Years [...] Telephone Encounter - Evy Frost, RN - 08/07/2020 7:58 AM CST Returned call to Patricia BEAD PICKER - spoke to office. Left name and contact information to return call. OL POLICE SERGEANT * Telephone Encounter - Adriel Mosley - 08/06/2020 3:56 PM CST Please contact BEAD PICKER Patricia at [phone] about patient seizure medication, Jocelyn. Ephraim OL POLICE SERGEANT documented in this encounter Plan of Treatment Upcoming Encounters Date Type Department Care Team (Late st Contact Info) Description 12/05/2024 1:00 PM CDT Office Visit [facility] - Neurology [address] [place] [address], [place] [phone] Sean Raymundo DO [address] [place] [address] [place] [phone] documented as of this encounter Visit Diagnoses Not on filedocumented in this encounter Care Teams Gas Generator Operator Relationship Specialty Start Date End Date Misael Maradiaga DO PCP - General 10/03/17 09/15/20 Elizabeth Sullivan, ALFRED Product Design Manager 10/14/17 documented as of this encounter
--- OUTSIDE RECORDS SUMMARY | 2024-06-08 05:42 | XMS_ITS | Encounter Summary ---
Author Organization [facility] Health Address [address] [place] [address] Care Team Providers Care Security Professional Name Role Phone Misael Maradiaga DO Primary Care Provider Elizabeth Sullivan RN Unavailable [phone] Encounter Details Date Type Department Care Team (Latest Contact Info) Description 06/18/2019 2:14 PM ROPE RIDER - 06/18/2019 11:59 PM ROPE RIDER Hospital Encounter [facility] DRAW STATION [address] [place] [id number] Ck Feliciano MD [address] [place] [address] Discharge Disposition: Home or Self Care Social [...] 20 MG tablet 12/12/2018 08/21/2020 clonazePAM (KLONOPIN) 0.5 MG tablet Take 1 tablet as needed after a seizure to prevent clustering, every 8 hours as needed. 30 tablet 10/26/2018 07/11/2019 Cyanocobalamin (B-12) 1000 MCGIndications:Vitamin B12 deficiency Take 1 mg by mouth once daily 30 capsule 10/26/2018 03/12/2021 folic acid (FOLVITE) 1 MG tabletIndications:Folat e deficiency Take 1 tablet by mouth once daily 30 tablet 11 10/26/2018 03/12/2021 ibuprofen (MOTRIN) 600 MG tablet Take 600 mg by mouth as needed 09/01/2018 01/07/2022 lacosamide (VIMPAT) 200 MG tablet Take 1 tablet by mouth 2 times daily for 30 days 60 tablet 5 05/16/2019 06/28/2023 levETIRAcetam (KEPPRA) 1000 MG tablet Take 2 [...] Office Visit [facility] - Neurology [address] [place] [address], [place] [address] Sean Raymundo DO [address] [place] [phone] documented as of this encounter Procedures Procedure Name Priority Date/Time Associated Diagnosis Comments LACOSAMIDE Routine 06/18/2019 2:26 PM ROPE RIDER Intractable epilepsy with status epilepticus, unspecified epilepsy type (HCC) LEVETIRACETAM LEVEL Routine 06/18/2019 2 :26 PM ROPE RIDER Intractable epilepsy with status epilepticus, unspecified epilepsy type (HCC) CBC W AUTO DIFFERENTIAL Routine 06/18/2019 2:26 PM ROPE RIDER Intractable epilepsy with status epilepticus, unspecified epilepsy type (HCC) COMPREHENSIVE METABOLIC PANEL Routine 06/18/2019 2:26 PM ROPE RIDER Intractable epilepsy with status epilepticus, unspecified epilepsy type (HCC) VALPROIC ACID LEVEL Routine 06/18/2019 2 :26 PM ROPE RIDER Intractable epilepsy with status epilepticus, unspecified epilepsy type (HCC) documented in this encounter Results * LACOSAMIDE (06/18/2019 2:26 PM ROPE RIDER) Lacosamide 6.4 5.0 - 10.0 ug/mL 06/20/2019 6:37 PM ROPE RIDER [facility] ([facility]) Comment: INTERPRETIVE INFORMATION: Lacosamide, Serum or Plasma Therapeutic Range: Not well established. Suggested range 5.0 - 10.0 ug/mL Dose-related range (values at doses of 200-600 mg/day): 2.5 - 18.0 ug/mL Toxic: Not well established. Adverse effects may include dizziness, fatigue, nausea, vomiting, blurred vision and tremor. Test developed and characteristics determined by [facility]. See Compliance Statement B: [employer]/ Performed by [facility], [address] [place] [address] [email or web address], Mio Anderson MD, Lab. Director Blood BLOOD SPECIMEN / Unknown Lab Venipuncture / Unknown 06/18/2019 2:26 PM ROPE RIDER 06/18/2019 3:00 PM ROPE RIDER Ck Feliciano MD LAB - CHEMISTRY ORDERABLES Performing Organization Address City/State/RUST Co de Phone Number [facility] ([facility]) [address] [place] [address], [facility] * (ABNORMAL) LEVETIRACETAM LEVEL (06/18/2019 2:26 PM ROPE RIDER) Levetiracetam 55.5(H) 10.0 - 40.0 ug/mL 06/20/2019 1:06 AM ROPE RIDER [facility] ([facility]) Comment: This test was developed and its performance characteristics determined by [facility]. It has not been cleared or approved by the Food and Drug Administration. Blood BLOOD SPECIMEN / Unknown Lab Venipuncture / Unknown 06/18/2019 2:26 PM ROPE RIDER 06/18/2019 3:00 PM ROPE RIDER Narrative [facility] ([facility]) - 06/20/2019 1:06 AM ROPE RIDER Performed at: ??01 - [facility] ??[id number] Laundromat Manager: Terence Ramos MD, Phone: ??[phone] Ck Feliciano MD LAB - THERAPEUT IC DRUG MONITORING ORDERABLES [facility] ([facility]) [address] [place] [address] * VALPROIC ACID LEVEL (06/18/2019 2:26 PM ROPE RIDER) Pathologist [facility] Valproic Acid Total 72 50 - 100 mcg/mL 06/18/2019 3:32 PM [facility] Blood BLOOD SPECIMEN / Unknown Lab Venipuncture / Unknown 06/18/2019 2:26 PM ROPE RIDER 06/18/2019 3:00 PM ROPE RIDER Ck Feliciano MD LAB - CHEMISTRY ORDERABLES [facility] [address] [phone] * (ABNORMAL) COMPREHENSIVE METABOLIC PANEL (06/18/2019 2:26 PM ROPE RIDER) Pathologist [facility] BUN 16 7 - 26 mg/dL 06/18/2019 3:26 PM [facility] Creatinine 0.9 0.6 - 1.2 mg/dL 06/18/2019 3:26 PM [facility] Sodium 141 136 - 145 mmol/L 06/18/2019 3:26 PM [facility] Potassium 4.7(H) 3.5 - 4.5 mmol/L 06/18/2019 3:26 PM [facility] Chloride 104 98 - 107 mmol/L 06/18/2019 3:26 PM [facility] CO2 30(H) 22 - 29 mmol/L 06/18/2019 3:26 PM [facility] Glucose 81 70 - 115 mg/dL 06/18/2019 3:26 PM [facility] Calcium 10.0 8.4 - 10.2 mg/dL 06/18/2019 3:26 PM [facility] Protein Total 7.8 6.0 - 8.3 g/dL 06/18/2019 3:26 PM [facility] Albumin 3.2(L) 3.4 - 5.0 g/dL 06/18/2019 3:26 PM [facility] Bilirubin Total 0.3 0.2 - 1.2 mg/dL 06/18/2019 3:26 PM [facility] Alkaline Phosphatase 76 40 - 150 Units/L 06/18/2019 3:26 PM [facility] ALT 7 0 - 55 Units/L 06/18/2019 3:26 PM [facility] AST 13 5 - 34 Units/L 06/18/2019 3:26 PM [facility] Anion Gap 12 8 - 18 06/18/2019 3:26 PM [facility] BUN/Creatinine Ratio 18 7 - 23 06/18/2019 3:26 PM [facility] Osmolality Calculated 292 270 - 300 mOsm/kg 06/18/2019 3:26 PM [facility] Albumin/Globulin Ratio 0.7(L) 1.1 - 2.3 06/18/2019 3:26 PM [facility] eGFR >60 >60 mL/min/1.7 3 m2 06/18/2019 3:26 PM [facility] Blood BLOOD SPECIMEN / Unknown Lab Venipuncture / Unknown 06/18/2019 2:26 PM ROPE RIDER 06/18/2019 3:[address] [facility] Ck Feliciano MD LAB - CHEMISTRY ORDERABLES [address] [phone] * (ABNORMAL) CBC WITH DIFFERENTIAL (06/18/2019 2:26 PM ROPE RIDER) WBC 7.1 3.5 - 10.5 10? 3 /uL 06/18/2019 3:06 PM [facility] RBC 4.34 4.30 - 5.70 10? 6 /uL 06/18/2019 3:06 PM [facility] Hemoglobin 13.3(L) 13.5 - 17.5 g/dL 06/18/2019 3:06 PM [facility] Hematocrit 42.0 39.0 - 50.0 % 06/18/2019 3:06 PM [facility] MCV 96.8 81.0 - 97.0 fL 06/18/2019 3:06 PM [facility] MCH 30.6 28.0 - 34.0 pg 06/18/2019 3:06 PM [facility] MCHC 31.7(L) 32.0 - 36.0 g/dL 06/18/2019 3:06 PM [facility] Platelet Count 303 150 - 400 10? 3 /uL 06/18/2019 3:06 PM [facility] RDW-SD 46.6 36.0 - 50.0 fL 06/18/2019 3:06 PM [facility] RDW-CV 13.2 11.2 - 14.8 % 06/18/2019 3:06 PM [facility] MPV 10.6 9.3 - 12.8 fL 06/18/2019 3:06 PM [facility] nRBC Absolute 0.00 0 10? 3 /uL 06/18/2019 3:06 PM [facility] nRBC Auto 0.0 0 /100 WBC 06/18/2019 3:06 PM [facility] Neutrophils % 45.5 35.0 - 70.0 % 06/18/2019 3:06 PM [facility] Lymphocytes % 41.5 19.7 - 55.1 % 06/18/2019 3:06 PM [facility] Monocytes % 8.0 3.0 - 15.0 % 06/18/2019 3:06 PM [facility] Eosinophils % 4.2 0.0 - 6.0 % 06/18/2019 3:06 PM [facility] Basophil % 0.4 0.0 - 1.5 % 06/18/2019 3:06 PM [facility] Neutrophils Absolute 3.2 1.6 - 7.0 10? 3 /uL 06/18/2019 3:06 PM [facility] Lymphocyte Absolute 3.0(H) 0.8 - 2.9 10? 3 /uL 06/18/2019 3:06 PM [facility] Monocytes Absolute 0.57 0.14 - 0.66 10? 3 /uL 06/18/2019 3:06 PM [facility] Eosinophils Absolute 0.30 0.00 - 0.45 10? 3 /uL 06/18/2019 3:06 PM [facility] Basophils Absolute 0.03 0.00 - 0.06 10? 3 /uL 06/18/2019 3:06 PM [facility] Immature Granulocytes % 0.4 0.0 - 1.0 % 06/18/2019 3:06 PM ROPE RIDER [facility] Blood BLOOD SPECIMEN / Unknown Lab Venipuncture / Unknown 06/18/2019 2:26 PM ROPE RIDER 06/18/2019 3:00 PM ROPE RIDER Ck Feliciano MD LAB - HEMATOLOG Y ORDERABLES Performing Organization Address City/State/RUST Co de Phone Number [facility] [address] [place] [address] documented in this encounter Visit Diagnoses Diagnosis Intractable epilepsy with status epilepticus, unspecified epilepsy type (HCC) documented in this encounter Care Teams Security Professional Relationship Specialty Start Date End Date Misael Maradiaga DO PCP - General 10/03/17 09/15/20 Elizabeth Sullivan, ALFRED Pool Table Operator 10/14/17 documented as of this encounter
--- OUTSIDE RECORDS SUMMARY | 2024-06-08 05:42 | XMS_ITS | Encounter Summary ---
Author Organization [facility] Health Address [address] [place] [address] Care Team Providers Care Pneumatic Riveter Name Role Phone Misael Maradiaga DO Primary Care Provider Elizabeth Sullivan RN Unavailable [phone] Reason for Referral * Radiology Services (Routine) - Closed Specialty Diagnoses / Procedures Referred By Contac t Referred To Contact Interventional Radiology Diagnoses PVD (peripheral vascular disease) (HCC) Procedures IR ANGIOGRAM LEFT LEG Michele Boone MD [address] [place] [address] [facility] Ivr [address] [place] [address] Referral ID Status Reason Start Date Expiration Date Visits Re quested Visits Authorized [id number] Closed 07/18/2019 01/12/2020 1 1 P CONTRACT ANALYST Reason for Visit * Reason Comments Establish Care pad Encounter Details Date Type Department Care Team (Late st Contact Info) Description 07/04/2019 11:00 AM GROUP CONTRACT ANALYST Office Visit [facility] [address] [place] [address] Yasmin Baeza MD [address] [facility] 2[address] [facility] [place] [address] PVD (peripheral vascular disease) (HCC) (Primary Dx) Social History Tobacco [...] Reading Time Taken Comments Blood Pressure 129/82 07/04/2019 11:15 AM GROUP CONTRACT ANALYST Pulse 74 07/04/2019 11:15 AM GROUP CONTRACT ANALYST Temperature 35.8 ??C (96.5 ??F) 07/04/2019 11:[address] Respiratory Rate - - Oxygen Saturation 98% 07/04/2019 11:15 AM GROUP CONTRACT ANALYST Inhaled Oxygen Concentration - - Weight 63.5 kg (140 lb) 07/04/2019 11:15 AM GROUP CONTRACT ANALYST Height 180.3 cm (5' 11 ) 07/04/2019 11:15 AM GROUP CONTRACT ANALYST Body Mass Index 19.53 07/04/2019 11:15 AM GROUP CONTRACT ANALYST documented in this encounter Functional Status Functional [...] this encounter Patient Instructions * Patient Instructions* Michele Boone MD - 07/04/2019 11:29 AM GROUP CONTRACT ANALYST They will call to schedule an angiogram of the left leg with Dr. Baeza. P CONTRACT ANALYST documented in this encounter Progress Notes * Yasmin Baeza MD - 07/04/2019 11:00 AM CST Pt seen and examined. No change in pain level Exam Fem 2+ bilaterally, doppler signals in feet Neuro axox3 Remains wheelchair bound Cor rrr Lungs cta aabd soft cta done Had tibial disease Risks of intervention ncluding but not limited bleeding, infection, VA, , limb loss described.Pt wishes to proceed. Plan for right sided stick with left lle angio and probable tibial plasty. Questions answered. Pt seems much more alert and cooperative P CONTRACT ANALYST documented in this encounter Plan of Treatment Upcoming Encounters Date Type Department Care Team (Late st Contact Info) Description 12/05/2024 1:00 PM CDT Office Visit [facility] - Neurology [address] [place] [address], [place] [address] Sean Raymundo, [address] [place] [address] [place] [address] documented as of this encounter Results * IR ANGIOGRAM LEFT LEG (07/18/2019 3:31 PM GROUP CONTRACT ANALYST) Anatomical Region Laterality Modality Lower Extremity X-Ray Angiograph y 07/18/2019 3:11 PM GROUP CONTRACT ANALYST Impressions 07/18/2019 3:15 PM GROUP CONTRACT ANALYST stenosis impression: IMPRESSION: Successful angioplasty of anterior tibial artery and superficial femoral artery This report was electronically signed by YASMIN BAEZA M.D. ??on 07/18/2019 3:15 PM . Narrative 07/18/2019 3:15 PM GROUP CONTRACT ANALYST Preprocedure diagnosis ischemic left lower extremity Postprocedure diagnosis same Procedure performed is right common femoral artery access with ultrasound guidance. third order selective catheter placement. Primary angioplasty of anterior tibial artery. Primary angioplastied superficial femoral artery Surgeon is Yasmin Baeza md and kush kaplan Anesthesia: 75 mcg fentanyl IV and 1 mg of Versed, 8 mL lidocaine right groin Contrast used 50 mL Technical details: The common femoral artery was access via Seldinger technique and a 6 Tongan sheath was placed. A combination of Omni Flush catheter and Glidewire were used to come up and over. Once the catheter was in the superficial femoral artery the system was changed out to a stiff wire. In up and over sheath of 6 Tongan was then placed. Images of left lower [...] stenosis, superficial femoral artery Procedure Note Yasmin Baeza MD - 07/18/2019 Preprocedure diagnosis ischemic left lower extremity Postprocedure diagnosis same Procedure performed is right common femoral artery access withultrasound guidance. third order selective catheter placement. Primary angioplastyof anterior tibial artery. Primary angioplastied superficial femoral artery Surgeon is Yasimn Baeza md and kush kaplan Anesthesia: 75 mcg fentanyl IV and 1 mg of Versed, 8 mL lidocaine right groin Contrast used 50 mL Technical details: The common femoral artery was access via Seldinger technique and a 6 Tongan sheath was placed. A combination of Omni Flush catheter and Glidewire were used to come up and over. Once the catheter was in the superficial femoral artery the system was changed out to a stiff wire. In up and over sheath of 6 Tongan was then placed. Images of left lower [...] This report was electronically signed by YASMIN BAEZA M.D. on 07/18/2019 3:15 PM . Michele Boone MD IR ORDERABLES documented in this encounter Visit Diagnoses Diagnosis PVD (peripheral vascular disease) (HCC)- Primary Peripheral vascular disease, unspecified Therapeutic procedure- Primary Unspecified rehabilitation procedure PVD (peripheral vascular disease) (HCC) Peripheral vascular disease, unspecified documented in this encounter Care Teams Pneumatic Riveter Relationship Specialty Start Date End Date Misael Maradiaga DO PCP - General 10/03/17 09/15/20 Elizabeth Sullivan, ALFRED Business Law Teacher 10/14/17 documented as of this encounter
--- OUTSIDE RECORDS SUMMARY | 2024-06-08 05:42 | XMS_ITS | Encounter Summary ---
Author Organization [facility] Health Address [address] [facility] [place] [address] Care Team Providers Care Repairer Name Role Phone Misael Maradiaga DO Primary Care Provider Elizabeth Sullivan RN Unavailable [phone] Encounter Details Date Type Department Care Team (Late st Contact Info) Description 07/04/2019 Orders Only [facility] [address] [place] [address] Anna Membreno MD [address] DIV [place] [phone] Social History Tobacco Use Types Packs/Day Years [...] Office Visit [facility] - Neurology [address] [place] [address], [place] [address] Sean Raymundo DO [address] [place] [address] [place] [address] documented as of this encounter Visit Diagnoses Not on filedocumented in this encounter Care Teams Repairer Relationship Specialty Start Date End Date Misael Maradiaga DO PCP - General 10/03/17 09/15/20 Elizabeth Sullivan, RN Loom Setter Fourdrinier 10/14/17 documented as of this encounter
--- OUTSIDE RECORDS SUMMARY | 2024-06-08 05:42 | XMS_ITS | Encounter Summary ---
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) Procedures CT ANGIO ABDOMEN AORTA W Vinicius Corrales MD [address] [place] [address] [facility] [address] [place] [address] Referral ID Status Reason Start Date Expiration Date Visits Re quested Visits Authorized [id number] Closed 06/14/2019 07/29/2019 1 1 Encounter Details Date Type Department Care Team (Latest Contact Info) Description 07/02/2019 3:04 PM VICTIM WITNESS ADMINISTRATOR - 07/02/2019 11:59 PM [facility] Hospital Encounter [facility] CAT SCAN [address] [place] [address] Ck Feliciano MD [address] [place] [address] Discharge Disposition: Home or Self [...] 09/17/2020 levETIRAcetam (KEPPRA) 1000 MG tablet Take 2 [...] 1:00 PM CDT Office Visit 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 Dictated by Marianna Langley MD (radiology administrator). Paddy, Dr. Ashwin READ M.D. have personally reviewed and interpreted this examination/study. This report was electronically signed by Ashwin READ M.D. ??on 07/03/2019 3:43 PM . Narrative 07/03/2019 3:43 PM VICTIM WITNESS ADMINISTRATOR EXAMINATION: Computed tomography (CT) angiography of the [...] noted in the spine. Procedure Note Dianne Read MD - 07/03/2019 EXAMINATION: Computed tomography (CT) [...] described above. Dictated by Marianna Langley MD (radiology administrator). I, Dr. Ashwin READ M.D. have personally reviewed and interpretedthis examination/study. This report was electronically signed by Ashwin READ M.D. on 07/03/2019 3:43 PM . 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
--- OUTSIDE RECORDS SUMMARY | 2024-06-08 05:42 | XMS_ITS | Encounter Summary ---
Author Organization [facility] Address [address] [place] [address] Care Team Providers Care Sand Slinger Name Role Phone Elizabeth Sullivan RN Unavailable [phone] Daryl Barr MD Primary Care Provider [phone] Reason for Visit * Reason Comments Weakness right sided weakness starting at 0900 this morning. Encounter Details Date Type Department Care Team (Late st Contact Info) Description 02/25/2021 11:04 AM CDT - 02/25/2021 9:25 PM T Emergency [facility] EMERGENCY DEPARTMENT [address] [place] [id number] Shane Fajardo MD [address] [place] [address] Kortney Vega MD [address] [place] [address] Weakness; Postictal state ([facility]) Discharge Disposition: Nursing Facility:Medicaid Social History Tobacco [...] Sign Reading Time Taken Comments Blood Pressure 118/91 02/25/2021 9:19 PM CDT Pulse 69 02/25/2021 11:20 AM CDT Temperature 36.7 ??C (98.1 ??F) 02/25/2021 10:59 AM C DT Respiratory Rate 18 02/25/2021 9:19 PM CDT Oxygen Saturation 100% 02/25/2021 11:20 AM CDT Inhaled Oxygen Concentration - - Weight 76.2 kg (168 lb) 02/25/2021 10:59 AM CDT Height 180.3 cm (5' 11 ) 02/25/2021 10:59 AM CDT Body Mass Index 23.43 02/25/2021 10:59 AM CDT documented in this encounter Functional [...] as of this encounter Discharge Instructions * Attachments The following attachments cannot be sent through Care Everywhere. * Weakness (AfterCare(R) Instructions(ER/ED)) (Bulgarian) documented in this encounter Medications at Time [...] times daily 08/21/2020 09/01/2021 Cyanocobalamin (B-12) 1000 MCGIndications:Vitamin B12 deficiency Take 1 mg by mouth once daily 30 capsule 11 10/26/2018 03/12/[address] (DEPAKOTE) 500 MG tablet Take 2 (two) tablets by mouth 2 times daily 08/21/2020 03/12/2021 folic acid (FOLVITE) 1 MG tabletIndications:Folate deficiency Take 1 tablet by mouth once daily 30 tablet 11 10/26/2018 03/12/2021 ibuprofen (MOTRIN) 600 MG tablet Take 600 mg by mouth as needed 09/01/2018 01/07/2022 lacosamide (VIMPAT) 200 MG tablet Take 1 (one) tablet by mouth 2 times daily 08/21/2020 03/12/2021 lacosamide (VIMPAT) 200 MG tablet Take 1 tablet by mouth 2 times daily for 30 days 60 tablet 5 05/16/2019 06/28/2023 levETIRAcetam (KEPPRA) 1000 MG tablet Take 2 (two) tablets by mouth 2 times daily 08/21/2020 03/12/2021 levETIRAcetam (KEPPRA) 1000 MG tablet Take 2 [...] 5 02/15/2019 01/14/2023 levETIRAcetam (KEPPRA) 750 MG tabletIndications: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 SW confirmed the patient is able to return to [facility] [phone]. SW arranged [facility] for transport ETA 9:30pm. There are no other concerns at this time. CLARITA Jennings Foster Care Therapist 02/25/2021 documented in this encounter H&P Notes * Clover Kiser RN - 02/25/2021 11:19 AM CDT First slice 1119 documented in this encounter Consult Notes * Roman Finley MD - 02/25/2021 3:38 PM CDTAssociated Order(s): IP CONSULT TO MEDICAL RECORDS TECHNICIAN [facility] Stroke Consult Note Bi Taobr Age: [age] year old Date of : 1960 Date of Admission: 02/25/2021 Hospital Day: 0 Subjective Patient is a 61 year old male presents with decreased level of alertness. Date last known well: 02/25/2021 Time last known well: 9 AM Arrival at ED: 11:05 AM Code Stroke Paged: 11:05 AM NIHSS completed: 11:16 AM First imaging slice: 11:19 AM History of Present Illness History was obtained from sister. Sharona Pat is a 61-year-old male presented to [facility] ED after being found drowsy by his sister. Per sister, he came earlier today for routine clinic follow-up with Dr. Feliciano and she found her unresponsive. In the ED, NIHSS was 9 (please, see breakdown below) and per sister he was back to his baseline. Additionally, his neurological examination was consistent with the one from 09/17/[address] Sean Ramyundo in clinic. CTH showed no bleeding or new infarct. tPA was not given due to absence of new deficit. CTH showed old right occipital infarction along with bilateral thalamic infarction were noted. CTA head and neck showed multifocal narrowing of both intracranial and extracranial vessels. Medical history significant for epilepsy, old stroke, hypertension, hyperlipidemia, and BPH. Past Medical History: Diagnosis Date ??? CVA (cerebral vascular accident) ??? HTN (hypertension) ??? Seizure No past surgical history on file. (Not in a hospital admission) Allergy No Known Allergies Family History No family history on file. [...] Social History Narrative ??? Not on file Objective Patient Vitals for the past 8 hrs: BP Temp Pulse Resp SpO2 Height Weight 02/25/21 1120 118/92 -- 69 16 100 % -- -- 02/25/21 1059 149/89 98.1 ??F (36.7 ??C) 84 16 99 % 5' 11 (1.803 m) 168 lb (76.2 kg) Exam: Cortical Function Mental Status Drowsy, alert, follows commands Orientation Oriented to person and place. Was not oriented to time. Language Mild dysarthria, comprehension intact, repetition intact Visual Ivan L homonymous hemianopia Neglect No visual neglect noted, no tactile neglect noted Cranial Nerves II Pupils 4 mm and bilaterally reactive to light. Fundoscopic exam not performed. VIII Hearing is intact bilaterally to finger rub. III/IV/ R gaze preference IX/X Palate elevated symmetrically without phonation abnormalities noted. V Facial sensation symmetric to light touch and intact bilaterally. Corneal reflex not examined. XIHead turning and shoulder shrug are intact. VII L nasolabial fold flattening XII Tongue is midline with normal movements and no atrophy noted. Motor Function Movement No abnormalities noted Bulk No abnormalities noted Tone No abnormalities noted Proximal Upper Distal Upper Proximal Lower Distal Lower Right 5/5 5/5 5/5 5/5 Left 3/5 3/5 3/5 3/5 Sensory Light Touch Symmetric and intact bilaterally Noxious Stimuli Symmetric and intact bilaterally Temperature Not tested Pallesthesia Not tested Gait Deferred ECG: NSR Ischemic Stroke Documentation Comorbidities As per HPI Cardiovascular/Cerebrovascular Comorbidities As per HPI NIHSS Stroke Scale: Interval: Baseline Time: 11:16 AM Person Administering Scale: Roman Finley MD 1a Level of consciousness 1 = Not alert; but arousable by minor stimulation to obey, answer, or respond. 1b LOC questions 1 = Answers one question correctly. 1c LOC commands 0 = Performs both tasks correctly. 2 Best gaze 1 = Partial gaze palsy; gaze is abnormal in one or both eyes, but forced deviation or total gaze paresis is not present. 3 Visual 2 = Complete hemianopsia. 4 Facial Palsy 1 = Minor paralysis (flattened nasolabial fold, asymmetry on smiling). 5a Motor Left Arm 1 = Drift; limb holds 90 (or 45) degrees, but drifts down before full 10 seconds;does not hit bed or other support. 5b Motor Right Arm 0 = No drift; limb holds 90 (or 45) degrees for full 10 seconds. 6a Motor Left Leg 1 = Drift; leg falls by the end of the 5-second period but does not hit the bed. 6b Motor Right Leg 0 = No drift; leg holds 30 degree position for full 5 seconds. 7 Limb Ataxia 0 = Absent. 8 Sensory 0 = Normal; no sensory loss. 9 Best Language 0 = No aphasia; normal. 10 Dysarthria 1 = [id number] dysarthria; patient slurs at least some words and, at worst, canbe understood with some difficulty. 11 Extinction/Inattention 0 = No abnormality. Total - 9 Impression Bi Tabor is a 61 year old male presenting for decreased level of alertness. Per patient's sister and neurological examination on [facility],he was back to baseline. His neurological examination findings were consistent with his previous stroke localizations. His symptoms might be considered secondaryto seizure vs infection vs toxic-metabolic etiologies. Recommendations 1. Please, continue home epilepsy medications. 2. Treat underlying metabolic and infectious etiologies. 3. Keep Mg>2 No further work up is needed from Stroke standpoint. Do not hesitate to call or page Stroke Team with any questions. Patient was seen and the plan was discussed with Stroke Attending, Dr. Frederick. Roman Finley MD PGY-2 Adult Neurology Resident 3:58 PM Associated attestation - Ousmane Frederick MD - 02/25/2021 5:42 PM CDT Images from the original note were not included. NEUROVASCULAR SERVICE ATTESTATION I saw and examined the patient with the Resident. I have verified all details of the Resident's note and agree with the Resident's documentation. 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 I will see him in clinic at his earliest convenience. Dual antiplatelet therapy as well as a high intensity statin are indicated. Ousmane Frederick MD documented in this encounter ED Notes * Kortney Vega MD - 02/25/2021 1:56 PM CDT ASSUMED CARE NOTE Patient signed out to me by Dr. Fajardo at 2:00 PM. 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 Patient was going to a doctor's visit but could not get out of the car. Upon presentation, he appeared encephalopathic but not focal. Patient has a hx of seizures post stroke. He has no other complaints at this time. At this time the patient's condition is Good. Pending UAand UDS results. Plan is likely discharge pending a negative UA and UDS. Vitals: 02/25/21 1059 02/25/21 1120 BP: 149/89 118/92 Pulse: 84 69 Resp: 16 16 Temp: 98.1 ??F (36.7 ??C) SpO2: 99% 100% Weight: 76.2 kg (168 lb) Height: 1.803 m (5' 11 ) ED Course: 2:25 PM: Patient's sister is no longer here, will return to ECF by EMS if he can be discharged. 3:13 PM: UA and urine tox are both negative. RN concerned about staring spell, reevaluated patient and he is conversant but somewhat confused. 5:00 PM: Patient is ready for discharge and will be transferred to his living facility via EMS. 5:09 PM: I have reviewed his diagnostic findings and he has had an opportunity to ask me any questions he has about care, diagnosis and discharge plan. Patient is comfortable with the discharge plan.He will follow up as directed and will return to the ER if his condition worsens or he develops other urgent concerns. 6:40 PM: Patient is restless and wants to go home, he believes that another patient is his sister and she can drive him home. 18:00 Stroke Neurology requesting carotid duplex and transcranial doppler prior to discharge, unclear that this can be completed this evening. Will clarify if he needs admission for additional studies. 19:05 Stroke team indicates he can have studies as outpatient prior to next Neuro appt 21:40 Ambulance here to transport patient back to ECF Clinical Impression: 1. Weakness 2. Postictal state Disposition: Discharge. By signing my name below, I, Christiano Napier, attest that this documentation has been prepared under the direction and in the presence of Dr. Vega. Signed: Laisha Stoddard. I, Dr. Vega, personally performed the services described in this documentation. All medical record entries made by the scribe were at my direction and in my presence. I have reviewed the chart and agree that the record reflects my personal performance and is accurate and complete. Electronically signed: Kortney Vega MD, MPH * Gracia Naranjo - 02/25/2021 1:39 PM CDT Adriane Hilliard, sister&POA, please update as soon as an update is available. * Shane Fajardo MD - 02/25/2021 11:07 AM CDT [facility] EMERGENCY DEPARTMENT ENCOUNTER HISTORICAL INFORMATION Primary Care Doctor: Daryl Barr MD Patient information was obtained primarily from the patient, nursing notes, and child care center administrator. History/Exam limitations: Yes - code stroke Provider contact time: 11:05 AM I have personally seen, examined and been fully involved in the management of this patient with theresident. I confirm history, exam, assessment and plan Discussed. 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 Patient's child care center administrator states they were in acar going to the doctors office when the patient was unable to get out of car and was less alert than normal. Patient had left sided weakness and trouble standing. The child care center administrator called patient's nursing facility who said at 9:00 AM when they gave the patient his daily medicine he was at baseline. LKW is difficult to define. HPI is limited 2/2 due to acuity of condition. PAST MEDICAL HISTORY Past Medical History: Diagnosis Date CVA (cerebral vascular accident) HTN (hypertension) Seizure SURGICAL HISTORY No past surgical history on file. CURRENT MEDICATIONS Current Outpatient Medications: acetaminophen (TYLENOL) 325 MG tablet, , Disp: , Rfl: amLODIPine (NORVASC) 5 MG tablet, Take 1 tablet by mouth once daily, Disp: 30 tablet, Rfl: 0 aspirin (ASPIRIN) 81 MG chew tablet, Take 1 tablet by mouth once daily, Disp: 30 tablet, Rfl: 0 atorvastatin (LIPITOR) 40 MG tablet, Take 1 (one) tablet by mouth at bedtime, Disp: , Rfl: clonazePAM (KLONOPIN) 2 MG tablet, Take 1 (one) tablet by mouth 2 times daily, Disp: , Rfl: Cyanocobalamin (B-12) 1000 MCG, Take 1 mg by mouth once daily, Disp: 30 capsule, Rfl: [address] (DEPAKOTE) 500 MG tablet, Take 2 (two) tablets by mouth 2 times daily, Disp: , Rfl: folic acid (FOLVITE) 1 MG tablet, Take 1 tablet by mouth once daily, Disp: 30 tablet, Rfl: 11 ibuprofen (MOTRIN) 600 MG tablet, , Disp: , Rfl: lacosamide (VIMPAT) 200 MG tablet, Take 1 (one) tablet by mouth 2 times daily, Disp: , Rfl: levETIRAcetam (KEPPRA) 1000 MG tablet, Take 2 (two) tablets by mouth 2 times daily, Disp: , Rfl: multivitamin daily tablet, Take 1 (one) tablet by mouth once daily, Disp: , Rfl: tamsulosin (FLOMAX) 0.4 MG capsule, 0.4 mg once daily , Disp: , Rfl: thiamine (VITAMIN B-1) 100 MG tablet, Take 1 tablet by mouth once daily, Disp: 30 tablet, Rfl: 11 ALLERGIES No Known Allergies FAMILY HISTORY No family history on file. [...] file Social History Narrative Not on file REVIEW OF SYSTEMS ROS is limited 2/2 due to acuity of condition. PHYSICAL EXAM VITAL SIGNS: BP 118/92 Pulse 69 Temp 98.1 ??F (36.7 ??C) Resp 16 Ht 1.803 m (5' 11 ) Wt 76.2 kg (168 lb) SpO2 100% BMI 23.43 kg/m2 Constitutional: Well developed, Well nourished, No acute distress, Non-toxic appearance. HENT: Normocephalic, Atraumatic, Bilateral external ears normal, Oropharynx moist, No oral exudates, Nose normal. Eyes: PERRL, EOMI, Conjunctiva normal, No discharge. Neck- Normal range of motion, No tenderness, Supple, No stridor. Respiratory: Normal breath sounds, No respiratory distress. Cardiovascular: Normal heart rate, Normal rhythm GI: Bowel sounds normal, Soft, No tenderness, No masses, No pulsatile masses. Musculoskeletal: Intact distal pulses, No edema, No tenderness, No cyanosis. Good range of motion in all major joints. No tenderness to palpation or major deformities noted. Integument: Warm, Dry Neurologic: awake, alert, slurred speech, confused, moving all extremities equally but slowly with mildly increased tonicity. Psychiatric: Affect normal, Judgment normal, Mood normal. PULSE OXIMETRY INTERPRETATION Saturation: 98% Oxygen Delivery: ra Interpretation: normal RHYTHM STRIP INTERPRETATION (interpreted by ED provider) Rhythm: sinus Ventricular Rate: 65 bpm EKG (interpreted by ED provider) Date: 02/25/21 Time: 1138 Interpretation: NSR, vr 65 bpm, no acute ischemia, qt/qtc 380/395. RADIOLOGY I have independently reviewed all imaging for today's visit. CT ANGIO BRAIN NECK STROKE Result Date: 02/25/2021 EXAMINATION: CT Angio Head; CT Angio Neck CLINICAL INDICATION: R53.1: Weakness TECHNIQUE: Arterial phase thin-slice spiral images were obtained during rapid infusion of intravenous contrast from the top of the aortic arch to the vertex. Multiplanar 2-D reconstructions were performed. Multiplanar 2-D reformats were performed. For better evaluation of vessel anatomy and pathology, post- processing was done to include MIP in the head and MIP, 3-D volume rendered, and curved multiplanar 2-D reconstructions in the neck. All internal carotid artery percent stenoses are calculated using the distal internal carotid artery diameter as the denominator (NASCET criteria). IV Contrast: 75 mL [id number]. C OMPARISON: 02/25/[address] FINDINGS: Neck CTA: Normal branching pattern of aortic arch is noted.There is no significant stenosis or occlusion involving the first order branches arising from the aortic arch. There is a small area of atherosclerotic disease/plaque along the superior medial borderof the aortic arch just distal to the origin of the left subclavian artery. Vertebral artery system: Segmental high-grade stenosis involving the proximal V1 segment of right vertebral artery just distal to its origin. The remainder of the cervical segments of right vertebral artery demonstrates no significant stenosis or occlusion. Segmental high-grade stenosis within the V1 segment of the smaller left vertebral artery with patent opacification within the distal V1 and proximal V2 segments. Multifocal at least moderate stenoses are present within the V2 segment. Faint opacification of the V3 segment is noted without opacification of the intracranial V4 segment. Right carotid artery system: C alcified atherosclerotic disease involves right CCA bifurcation and right ICA bulb without hemodynamically significant stenosis. The cervical segment of right ICA demonstrates no significant stenosis. Left carotid artery system: Calcified atherosclerotic disease involves left ICA bulb with approximately 55-60% diameter stenosis. The cervical segment of left ICA demonstrates no significant stenosis. Head CTA: Calcified atherosclerotic disease involves the cavernous segments of ICAs bilaterally with multifocal mild stenoses within the cavernous and proximal supraclinoid segments of right ICA and at least moderate segmental stenosis within the proximal cavernous, distal anterior cavernous and proximal supraclinoid segments of left ICA. Intracranial segment of right vertebral artery demonstrates patent flow without a significant stenosis or occlusion. There is a focal at least moderate stenosis within the proximal basilar artery. The intracranial segment of left vertebral artery is not visualized. Proximal segments of anterior, middle and posterior cerebral arteries demonstrate patent flow without a hemodynamically significant stenosis or occlusion. Anterior communicating artery is visualized. Posterior communicating arteries are not well visualized bilaterally. No intracranial aneurysm or AVM is noted. IMPRESSION: 1. Segmental high-grade stenosis involving the proximal V1 segments of vertebral arteries bilaterally. Multifocal at least moderate stenosis within the V2 segment of left vertebral arterywhich is occluded at the V3 V4 junction. 2. Approximately 55-60% diameter stenosis within the proximal left ICA bulb. 3. Focal at least moderate stenosis within the proximal basilar artery. 4. Multifo margarita atherosclerotic disease or stenosis involving the bilateral cavernous and proximal supraclinoidICAs. 5. No acute intracranial large artery occlusion. This report was electronically signed by MAY MARTINEZ on 02/25/2021 12:[address] BRAIN - Stroke Result Date: 02/25/2021 EXAM: CT BRAIN WITHOUT CONTRAST CLINICAL INDICATION: Code Stroke TECHNIQUE: Contiguous axial imagesthrough head were obtained without intravenous contrast administration. Brain and bone window images were obtained. COMPARISON: 08/13/[address] FINDINGS: Brain parenchyma: Chronic moderate cerebral and cerebellar volume loss is present. There are areas of discrete small and patchy hypodensities consistent with mild chronic microvascular ischemic changes. 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 Bilateral chronic thalamic, bilateral basal ganglia and subinsular lacunar infarctions are also noted. No large acute infarction, hemorrhage, mass or abnormal extra-axial fluid collection is present. Ventricles and the midline: Ventricles are normal without a midline shift or hydrocephalus. Skull and soft tissues: No acute fracture, bony or soft tissue abnormality. Chronic left paramedian occipital scalp subcutaneous lesion is present probably representing a trichilemmal cyst. Extracranial structures: Orbits are normal bilaterally. Old fracture deformity of the medial wall of left orbit. Mild paranasal sinus mucosal disease within bilateral frontal, ethmoid and sphenoid sinuses. Complete opacification of right maxillary sinus with soft tissue density protruding into the right nasal cavity. Visualized mastoids and tympanic cavities demonstrate no significant opacification. IMPRESSION: 1. No acute hemorrhage or large acute infarction. 2. Chronic moderate cerebral and cerebellar volume loss with chronic microvascular ischemic disease with multiple bilateral basal gangliaand thalamic microinfarctions. 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 3. Findings were called by Dr. Mercedes, limited radiology technician to Dr. Finley at 11:25 AM. This report was electronically signed by MAY MARTINEZ on 02/25/2021 11:42 AM . PROGRESS NOTES 11:05 AM -- Patient arrives in trauma bay from triage. 11:10 AM -- Patient moved to CT for stroke scans. 11:12 AM -- bowl turner reports patient is on multiple seizure medications. 11:36 AM -- Per chart review, patient was seen on 09/17/2020 by neurology and they report the patient having similar symptoms and a complicated seizure history. 12:07 PM -- CT imaging shows no new intracranial hemorrhage or infarcts. Chronic moderate cerebral and cerebellar volume loss with chronic microvascular ischemic disease with multiple bilateral basalganglia and thalamic microinfarctions. 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 1:40 PM -- Labs show pO2 venous of 32, pCO2 venous of 52, valproic acid total of 41, and platelet count of 139. 2:00 PM -- WILSON to Dr. Vega pending neurology recs ED COURSE & MEDICAL DECISION MAKING Pertinent Labs & Imaging studies reviewed. (See chart for details) Hospital Encounter on 02/25/21 CBC W AUTO DIFFERENTIAL Result Value Ref Range WBC 6.4 3.5 - 10.5 10??3/uL RBC 4.51 4.30 - 5.70 10??6/uL Hemoglobin 14.7 12.0 - 17.6 g/dL Hematocrit 44.0 35.2 - 51.7 % MCV 97.6 80.7 - 98.3 fL MCH 32.6 26.7 - 34.0 pg MCHC 33.4 30.8 - 35.9 g/dL Platelet Count 139 (L) 150 - 400 10??3/uL RDW-SD 43.1 36.0 - 50.0 fL RDW-CV 11.9 11.2 - 14.8 % MPV 12.5 9.4 - 12.9 fL nRBC Absolute 0.00 0 10??3/uL nRBC Auto 0.0 0 /100 WBC Neutrophils % 47.6 35.0 - 70.0 % Lymphocytes % 38.3 20.0 - 43.0 % Monocytes % 8.9 5.0 - 13.0 % Eosinophils % 4.7 0.0 - 6.0 % Basophil % 0.3 0.0 - 2.0 % Neutrophils Absolute 3.1 1.6 - 7.0 10??3/uL Lymphocyte Absolute 2.5 1.1 - 3.9 10??3/uL Monocytes Absolute 0.57 0.26 - 1.07 10??3/uL Eosinophils Absolute 0.30 0.00 - 0.47 10??3/uL Basophils Absolute 0.02 0.00 - 0.08 10??3/uL Immature Granulocytes % 0.2 0.0 - 1.0 % Immature Granulocytes Absolute 0.01 COMPREHENSIVE METABOLIC PANEL Result Value Ref Range BUN 13 7 - 26 mg/dL Creatinine 0.83 0.71 - 1.16 mg/dL Sodium 140 136 - 145 mmol/L Potassium 3.7 3.5 - 4.5 mmol/L Chloride 108 (H) 98 - 107 mmol/L CO2 23 22 - 29 mmol/L Glucose 78 70 - 115 mg/dL Calcium 8.3 (L) 8.4 - 10.2 mg/dL Protein Total 5.7 (L) 6.0 - 8.3 g/dL Albumin 3.2 (L) 3.4 - 5.0 g/dL Bilirubin Total 0.6 0.2 - 1.2 mg/dL Alkaline Phosphatase 51 40 - 150 U/L ALT 9 5 - 55 U/L AST 17 5 - 34 U/L Anion Gap 13 8 - 18 BUN/Creatinine Ratio 16 7 - 23 Osmolality Calculated 289 270 - 300 mOsm/kg Albumin/Globulin Ratio 1.3 1.1 - 2.3 eGFR by CKD-EPI >90 >=90 mL/min/1.73 m2 PT-INR [facility] Result Value Ref Range PT 13.5 12.1 - 14.8 Seconds INR 1.1 See Comment TROPONIN I Result Value Ref Range Troponin I 0.021 <0.032 ng/mL AMMONIA Result Value Ref Range Ammonia 34 <=72 umol/L URINE DRUG SCREEN IMMUNOASSAY Result Value Ref Range Amphetamines Screen Urine Negative Negative: < 1000 ng/mL Barbiturates Screen Urine Negative Negative: < 200 ng/mL Benzodiazepine Screen Urine Negative Negative: < 200 ng/mL Opiates Urine Negative Negative: < 300 ng/mL Cocaine Metabolites Urine Negative Negative: < 300 ng/mL Phencyclidine Screen Urine Negative Negative: < 25 ng/ml Cannabinoids Screen Urine Negative Negative: <50 ng/mL Methadone Screen Urine Negative Negative: < 300 ng/mL Fentanyl Screen Urine Negative Negative: <1.0 ng/mL ALCOHOL ETHYL BLOOD Result Value Ref Range Ethanol (mg/dL) <10 <10 mg/dL Ethanol Calculated (g/dL) <0.010 <0.010 g/dL BLOOD GASES ANA + COOX PANEL Result Value Ref Range pH Venous 7.34 7.32 - 7.42 pH pO2 Venous 32 (L) 35 - 40 mmHg pCO2 Venous 52 (H) 40 - 50 mmHg HCO3 Venous 28.1 20 - 30 mmol/L Base Excess Venous 1.3 -2.0 - 2.0 mmol/L Oxyhemoglobin Venous 49.2 % Deoxyhemoglobin (HHB) Venous % 48.9 % Methemoglobin <0.8 0.0 - 2.0 % Carboxyhemoglobin 1.3 0.0 - 2.0 % O2 Content Venous 9.6 Interpret within clinical context mg/dL Hemoglobin by COOX 13.9 12.0 - 17.6 g/dL O2 Saturation Venous 50 (L) >=70 % FI O2 Mixed Venous 21.0 % VALPROIC ACID LEVEL Result Value Ref Range Valproic Acid Total 41 (L) 50 - 100 ug/mL TYPE + SCREEN PANEL Result Value Ref Range Antibody Screen NEG ABO Rh O POS BLOOD TYPE VERIFICATION Result Value Ref Range ABO Rh O POS CREATININE - POCT INTERFACED Result Value Ref Range Creatinine POCT 0.73 0.30 - 1.30 mg/dL eGFR >60 >60 mL/min/1.73 m2 GLUCOSE - POINT OF CARE Result Value Ref Range Glucose WB/POC 83 70 - 115 mg/dL Specimen Type Cap Fingerstick Amount and/or Complexity of Data Reviewed Triage notes and available nursing notes reviewed Clinical lab tests: ordered and reviewed Tests in the radiology section of CPT??: ordered and reviewed Independent visualization of images: yes Decide to obtain previous medical records or to obtain history from someone other than the patient:yes, see HPI Review and summarize past medical records: yes Discuss the patient with other providers: yes FINAL IMPRESSION 1. Weakness Pending - WILSON to Dr. Vega By signing my name below, I, Antionette Lm, attest that this documentation has been prepared underthe direction and in the presence of Dr. Fajardo. Signed: Laisha Hodgson. Shane Fajardo M.D. Emergency Medicine Physician documented in this encounter Plan of Treatment Upcoming Encounters Date Type Department Care Team (Late st Contact Info) Description 12/05/2024 1:00 PM CDT Office Visit [facility] - Neurology [address] [place] [address], [place] [id number] Sean Raymundo, [address] [place] [address] [place] [address] documented as of this encounter Procedures Procedure Name Priority Date/Time Associated Diagnosis Comments CARDIAC EKG ORDER 02/26/2021 2:2 6 PM CDT TROPONIN I Timed 02/25/2021 2:59 PM CDT PHOSPHORUS BLOOD STAT 02/25/2021 2:59 PM CDT MAGNESIUM BLOOD STAT 02/25/2021 2:59 PM CDT URINALYSIS REFLEX TO MICROSCOPIC NO CULTURE STAT 02/25/2021 1:57 PM CDT URINE DRUG SCREEN IMMUNOASSAY STAT 02/25/2021 1:57 PM CDT BLOOD GASES ANA + COOX PANEL STAT 02/25/2021 12:12 PM CDT COMPREHENSIVE METABOLIC PANEL STAT 02/25/2021 12:12 PM CDT AMMONIA STAT 02/25/2021 12:11 PM CDT TYPE + SCREEN PANEL STAT 02/25/2021 1 2:05 PM CDT EKG 12-LEAD STAT 02/25/2021 11:38 AM CDT Weakness CBC W AUTO DIFFERENTIAL STAT 02/25/2021 11:35 AM CDT ALCOHOL ETHYL BLOOD STAT 02/25/2021 1 1:35 AM CDT VALPROIC ACID LEVEL STAT 02/25/2021 1 1:35 AM CDT PT-INR [facility] STAT 02/25/2021 11:34 AM CDT TROPONIN I STAT 02/25/2021 11:[address] ANGIO BRAIN NECK STROKE STAT 02/25/2021 11:32 AM CDT Weakness BLOOD TYPE VERIFICATION STAT 02/25/2021 11:30 AM CDT CREATININE - POCT INTERFACED Routine 02/25/2021 11:[address] BRAIN STROKE STAT 02/25/2021 11:19 AM CDT Weakness GLUCOSE - POINT OF CARE Routine 02/25/2021 11:08 AM CDT documented in this encounter Results * CARDIAC EKG ORDER (02/26/2021 2:26 PM CDT) Narrative 02/26/2021 2:26 PM CDT Ordered by an unspecified provider. Scanned Document CARDIAC SERVICES ORD ERABLES * TROPONIN I (02/25/2021 2:59 PM CDT) Pathologist [facility] Troponin I 0.012 <0.032 ng/mL 02/25/2021 3:42 PM CDT [facility] Blood BLOOD SPECIMEN / Unknown Venipuncture / Unknown 02/25/2021 2:59 PM CDT 02/25/2021 3:42 PM CDT Shane Fajardo MD LAB - CHEMISTRY OR DERABLES [address] [address], [place] [phone] * PHOSPHORUS BLOOD (02/25/2021 2:59 PM CDT) Pathologist [facility] Phosphorus 3.2 2.8 - 5.1 mg/dL 02/25/2021 3:34 PM CDT [facility] Blood BLOOD SPECIMEN / Unknown Venipuncture / Unknown 02/25/2021 2:59 PM CDT 02/25/2021 3:34 PM CDT Shane Fajardo MD LAB - CHEMISTRY OR DERABLES Performing Organization Address [facility]/ZIP Co de Phone Number [address] [address], [place] [phone] * MAGNESIUM BLOOD (02/25/2021 2:59 PM CDT) Pathologist [facility] Magnesium 1.8 1.6 - 2.6 mg/dL 02/25/2021 3:34 PM CDT [facility] Blood BLOOD SPECIMEN / Unknown Venipuncture / Unknown 02/25/2021 2:59 PM CDT 02/25/2021 3:34 PM CDT Shane Fajardo MD LAB - CHEMISTRY OR DERABLES Performing Organization Address City/[facility]/ZIP Co de Phone Number [address] [address], [place] [phone] * (ABNORMAL) URINALYSIS REFLEX TO MICROSCOPIC NO CULTURE (02/25/2021 1:57 PM T) Color UA Yellow Straw, Yellow 02/25/2021 2:37 PM [facility] Clarity UA Clear Clear 02/25/2021 2:37 PM [facility] Specific [place] UA >1.060(H) 1.005 - 1.030 02/25/2021 2:37 PM [facility] Comment:Confirmed by manual method pH UA 6.0 5.0 - 8.0 pH 02/25/2021 2:37 PM [facility] Protein UA Negative Negative 02/25/2021 2:37 PM [facility] Glucose UA Negative Negative 02/25/2021 2:37 PM [facility] Ketone UA 1+(A) Negative 02/25/2021 2:37 PM [facility] Bilirubin UA Negative Negative 02/25/2021 2:37 PM [facility] Blood UA Negative Negative 02/25/2021 2:37 PM [facility] Nitrite UA Negative Negative 02/25/2021 2:37 PM [facility] Leukocyte Esterase Negative Negative 02/25/2021 2:37 PM [facility] Urobilinogen UA 4.0(A) Negative mg/dL 02/25/2021 2:37 PM [facility] RBC UA 0-2 None Seen, 0-2, 3-5 /HPF 02/25/2021 2:37 PM [facility] WBC UA 0-5 None Seen, 0-5 /HPF 02/25/2021 2:37 PM [facility] Squamous Epithelial Cells UA 0-2 None Seen, 0-2, 3-5 /HPF 02/25/2021 2:37 PM [facility] Mucus UA 1+ /LPF 02/25/2021 2:37 PM [facility] Urine URINE SPECIMEN OBTAINED BY CLEAN CATCH PROCEDURE / Unknown Collection / Unknown 02/25/2021 1:57 PM CDT 02/25/2021 1:57 PM [facility] - 02/25/2021 2:37 PM CDT Shane Fajardo MD LAB - URINALYSIS O RDERABLES [facility] [address] [place] [phone], [facility] [phone] * URINE DRUG SCREEN IMMUNOASSAY (02/25/2021 1:57 PM CDT) [facility] Amphetamines Screen Urine Negative Negative: < 1000 ng/mL 02/25/2021 2:18 PM CDT [facility] Barbiturates Screen Urine Negative Negative: < 200 ng/mL 02/25/2021 2:18 PM CDT [facility] Benzodiazepine Screen Urine Negative Negative: < 200 ng/mL 02/25/2021 2:18 PM CDT [facility] Opiates Urine Negative Negative: < 300 ng/mL 02/25/2021 2:18 PM CDT [facility] Cocaine Metabolites Urine Negative Negative: < 300 ng/mL 02/25/2021 2:18 PM T [facility] Phencyclidine Screen Urine Negative Negative: < 25 ng/ml 02/25/2021 2:18 PM CDT [facility] Cannabinoids Screen Urine Negative Negative: <50 ng/mL 02/25/2021 2:18 PM CDT [facility] Methadone Screen Urine Negative Negative: < 300 ng/mL 02/25/2021 2:18 PM T [facility] Fentanyl Screen Urine Negative Negative: <1.0 ng/mL 02/25/2021 2:18 PM T [facility] Urine URINE / Unknown Collection / Unknown 02/25/2021 1:57 PM CDT 02/25/2021 2:04 PM CDT [facility] - 02/25/2021 2:18 PM CDT The Urine Toxicology Screening Panel does not screen for Propoxyphene, Meprobamate, Carisoprodol, Trazodone, [id number] medications and/or volatiles (Acetone, Isopropanol, Methanol or Ethylene Glycol). Ethanol, Salicylate, Acetaminophen, Tricyclic Antidepressants and several therapeutic drugs may be individually assayed in serum or plasma specimen. Toxicology testing by the [facility] is an aid to medical diagnosis and treatment of patients. No documented chain of custody was maintained. Results are intended to be used for clinical purposes only. ? Shane Fajardo MD LAB - URINE CHEMIS TRY ORDERABLES [facility] [address] [place] [address], [facility] [phone] * (ABNORMAL) BLOOD GASES ANA + COOX PANEL (02/25/2021 12:12 PM CDT) pH Venous 7.34 7.32 - 7.42 pH 02/25/2021 12:30 PM [facility] pO2 Venous 32(L) 35 - 40 mmHg 02/25/2021 12:30 PM [facility] pCO2 Venous 52(H) 40 - 50 mmHg 02/25/2021 12:30 PM [facility] HCO3 Venous 28.1 20 - 30 mmol/L 02/25/2021 12:30 PM [facility] Base Excess Venous 1.3 -2.0 - 2.0 mmol/L 02/25/2021 12:30 PM [facility] Oxyhemoglobin Venous 49.2 % 01/29 12:30 PM [facility] Deoxyhemoglobin (HHB) Venous % 48.9 % 02/25/2021 12:30 PM [facility] Methemoglobin <0.8 0.0 - 2.0 % 02/25/2021 12:30 PM [facility] Carboxyhemoglobin 1.3 0.0 - 2.0 % 2020 12:30 PM [facility] O2 Content Venous 9.6 Interpret within clinical context mg/dL 02/25/2021 12:30 PM [facility] Hemoglobin by COOX 13.9 12.0 - 17.6 g/dL 02/25/2021 12:30 PM [facility] O2 Saturation Venous 50(L) >=70 % 01/29 12:30 PM [facility] FI O2 Mixed Venous 21.0 % 2020 12:30 PM [facility] Blood BLOOD SPECIMEN / Unknown Venipuncture / Unknown 02/25/2021 12:12 PM CDT 02/25/2021 12:16 PM [facility] - 02/25/2021 12:30 PM [facility] Carboxyhemoglobin Normal Concentration: Non-smokers: 0-2%; Smokers: 0-9%; Toxic: >20% Shane Fajardo MD LAB - BLOOD GASES ORDERABLES [facility] [address] [place] [address], [facility] [phone] * (ABNORMAL) COMPREHENSIVE METABOLIC PANEL (02/25/2021 12:12 PM CDT) BUN 13 7 - 26 mg/dL 02/25/2021 12:44 PM [facility] Creatinine 0.83 0.71 - 1.16 mg/dL 02/25/2021 12:44 PM [facility] Sodium 140 136 - 145 mmol/L 02/25/2021 12:44 PM [facility] Potassium 3.7 3.5 - 4.5 mmol/L 02/25/2021 12:44 PM [facility] Chloride 108(H) 98 - 107 mmol/L 02/25/2021 12:44 PM [facility] CO2 23 22 - 29 mmol/L 02/25/2021 12:44 PM [facility] Glucose 78 70 - 115 mg/dL 02/25/2021 12:44 PM [facility] Calcium 8.3(L) 8.4 - 10.2 mg/dL 02/25/2021 12:44 PM [facility] Protein Total 5.7(L) 6.0 - 8.3 g/dL 02/25/2021 12:44 PM [facility] Albumin 3.2(L) 3.4 - 5.0 g/dL 02/25/2021 12:44 PM [facility] Bilirubin Total 0.6 0.2 - 1.2 mg/dL 02/25/2021 12:44 PM [facility] Alkaline Phosphatase 51 40 - 150 U/L 02/25/2021 12:44 PM [facility] ALT 9 5 - 55 U/L 02/25/2021 12:44 PM [facility] AST 17 5 - 34 U/L 02/25/2021 12:44 PM [facility] Anion Gap 13 8 - 18 02/25/2021 12:44 PM [facility] BUN/Creatinine Ratio 16 7 - 23 02/25/2021 12:44 PM [facility] Osmolality Calculated 289 270 - 300 mOsm/kg 02/25/2021 12:44 PM [facility] Albumin/Globulin Ratio 1.3 1.1 - 2.3 02/25/2021 12:44 PM [facility] eGFR by CKD-EPI >90 >=90 mL/min/1.7 3 m2 02/25/2021 12:44 PM [facility] Blood BLOOD SPECIMEN / Unknown Venipuncture / Unknown 02/25/2021 12:12 PM CDT 02/25/2021 12:17 PM T Shane Fajardo MD LAB - CHEMISTRY OR DERABLES [facility] [address] [place] [address], [facility] [phone] * AMMONIA (02/25/2021 12:11 PM CDT) Ammonia 34 <=72 umol/L 02/25/2021 12:34 PM CDT [facility] Blood BLOOD SPECIMEN / Unknown Venipuncture / Unknown 02/25/2021 12:11 PM CDT 02/25/2021 12:34 PM CDT Shane Fajardo MD LAB - CHEMISTRY OR DERABLES Performing Organization Address [facility]/ZIP Co de Phone Number [facility] [address] [place] [address], [facility] [phone] * TYPE + SCREEN PANEL (02/25/2021 12:05 PM CDT) [facility] Antibody Screen NEG 12:59 PM CDT [facility] BLOOD [facility]ANK LAB ABO Rh O POS 02/25/2021 12:59 PM CDT [facility] BLOOD [facility] LAB Blood Bank BLOOD SPECIMEN / Unknown Venipuncture / Unknown 02/25/2021 12:05 PM CDT 02/25/2021 12:20 PM CDT Shane Fajardo MD LAB - BLOOD BANK O RDERABLES Performing Organization Address [facility]/ZIP Co de Phone Number [facility] [address] [place] [address], [place] [phone] * EKG 12-LEAD (02/25/2021 11:38 AM CDT) Ventricular Rate 65 BPM [facility] MUSE Atrial Rate 65 BPM [facility] MUSE P-R Interval 170 ms [facility] M[facility] QRS Duration ms 76 ms [facility] MUSE Q-T Interval ms 380 ms [facility] MUSE QTC Calculation (Bezet) 395 ms [facility] MUSE Calculated P Hester 75 degrees [facility] MUSE Calculated R Hester 29 degrees [facility] MUSE Calculated T Hester 82 degrees [facility] MUSE Interpretation EKG NORMAL SINUS RHYTHM POSSIBLE SEPTAL INFARCT (CITED ON OR BEFORE 11-APR-2015) ABNORMAL ECG WHEN COMPARED WITH ECG OF 15-MAY-2019 16:00, VENT. RATE HAS DECREASED BY ??51 BPM Confirmed by Tio Curry ([id number]) on 02/28/2021 5:04:17 AM [facility] MUSE 02/25/2021 11:3 8 AM CDT 02/28/2021 5:04 AM CDT Shane Fajardo MD ECG ORDERABLES Performing Organization Address City/[facility]/ZIP Co de Phone Number [facility] MUSE * (ABNORMAL) VALPROIC ACID LEVEL (02/25/2021 11:35 AM CDT) Valproic Acid Total 41(L) 50 - 100 ug/mL 02/25/2021 12:54 PM CDT [facility] Blood BLOOD SPECIMEN / Unknown Venipuncture / Unknown 02/25/2021 11:35 AM CDT 02/25/2021 12:12 PM CDT Shane Fajardo MD LAB - CHEMISTRY OR DERABLES Performing Organization Address [facility] Co de Phone Number [facility] [address] [place] [address], [facility] [phone] * ALCOHOL ETHYL BLOOD (02/25/2021 11:35 AM CDT) Ethanol (mg/dL) <10 <10 mg/dL 12:53 PM CDT [facility] Ethanol Calculated (g/dL) <0.010 <0.010 g/dL 02/25/2021 12:53 PM CDT [facility] Blood BLOOD SPECIMEN / Unknown Venipuncture / Unknown 02/25/2021 11:35 AM CDT 02/25/2021 12:12 PM CDT Narrative [facility] - 02/25/2021 12:53 PM CDT Ethanol Interp <10: None Detected. Depression of GLUE SIZE MACHINE OPERATOR: >100 mg/dl Potentially Critical: >250 mg/dl Potentially [...] - CHEMISTRY OR DERABLES Performing Organization Address City/[facility]/ZIP Co de Phone Number [facility] [address] [place] [address], [facility] [phone] * (ABNORMAL) CBC W AUTO DIFFERENTIAL (02/25/2021 11:35 AM CDT) WBC 6.4 3.5 - 10.5 10? 3 /uL 02/25/2021 11:53 AM [facility] RBC 4.51 4.30 - 5.70 10? 6 /uL 02/25/2021 11:53 AM [facility] Hemoglobin 14.7 12.0 - 17.6 g/dL 02/25/2021 11:53 AM [facility] Hematocrit 44.0 35.2 - 51.7 % 02/25/2021 11:53 AM [facility] MCV 97.6 80.7 - 98.3 fL 02/25/2021 11:53 AM [facility] MCH 32.6 26.7 - 34.0 pg 02/25/2021 11:53 AM [facility] MCHC 33.4 30.8 - 35.9 g/dL 02/25/2021 11:53 AM [facility] Platelet Count 139(L) 150 - 400 10? 3 /uL 02/25/2021 11:53 AM [facility] RDW-SD 43.1 36.0 - 50.0 fL 02/25/2021 11:53 AM [facility] RDW-CV 11.9 11.2 - 14.8 % 02/25/2021 11:53 AM [facility] MPV 12.5 9.4 - 12.9 fL 02/25/2021 11:53 AM [facility] nRBC Absolute 0.00 0 10? 3 /uL 02/25/2021 11:53 AM [facility] nRBC Auto 0.0 0 /100 WBC 02/25/2021 11:53 AM [facility] Neutrophils % 47.6 35.0 - 70.0 % 02/25/2021 11:53 AM [facility] Lymphocytes % 38.3 20.0 - 43.0 % 02/25/2021 11:53 AM [facility] Monocytes % 8.9 5.0 - 13.0 % 02/25/2021 11:53 AM [facility] Eosinophils % 4.7 0.0 - 6.0 % 02/25/2021 11:53 AM [facility] Basophil % 0.3 0.0 - 2.0 % 02/25/2021 11:53 AM [facility] Neutrophils Absolute 3.1 1.6 - 7.0 10? 3 /uL 02/25/2021 11:53 AM [facility] Lymphocyte Absolute 2.5 1.1 - 3.9 10? 3 /uL 02/25/2021 11:53 AM [facility] Monocytes Absolute 0.57 0.26 - 1.07 10? 3 /uL 02/25/2021 11:53 AM [facility] Eosinophils Absolute 0.30 0.00 - 0.47 10? 3 /uL 02/25/2021 11:53 AM [facility] Basophils Absolute 0.02 0.00 - 0.08 10? 3 /uL 02/25/2021 11:53 AM [facility] Immature Granulocytes % 0.2 0.0 - 1.0 % 02/25/2021 11:53 AM [facility] Immature Granulocytes Absolute 0.01 02/25/2021 11:53 AM [facility] Blood BLOOD SPECIMEN / Unknown Venipuncture / Unknown 02/25/2021 11:35 AM CDT 02/25/2021 11:45 AM T Shane Fajardo MD LAB - HEMATOLOGY O RDERABLES [facility] [address] [place] [address], [facility] [phone] * TROPONIN I (02/25/2021 11:34 AM CDT) Troponin I 0.021 <0.032 ng/mL 02/25/2021 12:15 PM T [facility] Blood BLOOD SPECIMEN / Unknown Venipuncture / Unknown 02/25/2021 11:34 AM CDT 02/25/2021 11:55 AM CDT Shane Fajardo MD LAB - CHEMISTRY OR DERABLES [facility] [address] [place] [address], [facility] [phone] * PT-INR [facility] (02/25/2021 11:34 AM CDT) PT 13.5 12.1 - 14.8 Seconds 02/25/2021 12:05 PM CDT [facility] INR 1.1 See Comment 02/25/2021 12:05 PM CDT [facility] Comment:The suggested therap eutic range for standard coumadin (warfarin) therapy is an INR of 2.0-3.0. For high-risk patients (Mechanical Mitral Valve Prosthesis, etc.), the suggested prophylactic therapeutic range is an INR of 2.5-3.5. Blood BLOOD SPECIMEN / Unknown Venipuncture / Unknown 02/25/2021 11:34 AM CDT 02/25/2021 11:38 AM CDT Shane Fajardo MD LAB - COAGULATION ORDERABLES [facility] [address] [place] [address], [facility] [phone] * CT ANGIO BRAIN NECK STROKE (02/25/2021 11:32 AM CDT) Anatomical Region Laterality Modality Head Computed Tomogra phy 02/25/2021 11:4 2 AM CDT Impressions 02/25/2021 12:20 PM CDT IMPRESSION: 1. Segmental high-grade stenosis involving the proximal [...] 5. No acute intracranial large artery occlusion. This report was electronically signed by MAY MARTINEZ ??on 02/25/2021 12:20 PM . Narrative 02/25/2021 12:20 PM CDT EXAMINATION: ??CT Angio Head; CT Angio Neck CLINICAL INDICATION: R53.1: Weakness TECHNIQUE: Arterial phase thin-slice spiral images were obtained during rapid infusion of intravenous contrast from the top of the aortic arch to the vertex. Multiplanar 2-D reconstructions were performed. Multiplanar 2-D reformats were performed. ??For better evaluation of vessel anatomy and pathology, post-processing was done to include MIP in the head and MIP, 3-D volume rendered, and curved multiplanar 2-D reconstructions in the neck. All internal carotid artery percent stenoses are calculated using the distal internal carotid artery diameter as the denominator (NASCET criteria). IV Contrast: ??75 mL [id number]. COMPARISON: 02/25/[address] FINDINGS: Neck CTA: Normal branching pattern of aortic arch is noted. ??There is no significant stenosis or occlusion involving the first order branches arising from the aortic arch. There is a small area of atherosclerotic disease/plaque along the superior medial border of the aortic arch just distal to the origin of the left subclavian artery. Vertebral artery system: Segmental high-grade stenosis involving the proximal V1 segment of right vertebral artery just distal to its origin. The remainder of the cervical segments of right vertebral artery demonstrates no significant stenosis or occlusion. Segmental high-grade stenosis within the V1 segment of the smaller left vertebral artery with patent opacification within the distal V1 and proximal V2 segments. Multifocal at least moderate stenoses are present within the V2 segment. Faint opacification of the V3 segment is noted without opacification of the intracranial V4 segment. Right carotid artery system: Calcified atherosclerotic disease involves right CCA bifurcation and right ICA bulb without hemodynamically significant stenosis. The cervical segment of right ICA demonstrates no significant stenosis. Left carotid artery system: Calcified atherosclerotic disease involves left ICA bulb with approximately 55-60% diameter stenosis. The cervical segment of left ICA demonstrates no significant stenosis. Head CTA: Calcified atherosclerotic disease involves the cavernous segments of ICAs bilaterally with multifocal mild stenoses within the cavernous and proximal supraclinoid segments of right ICA and at least moderate segmental stenosis within the proximal cavernous, distal anterior cavernous and proximal supraclinoid segments of left ICA. Intracranial segment of right vertebral artery demonstrates patent flow without a significant stenosis or occlusion. There is a focal at least moderate stenosis within the proximal basilar artery. The intracranial segment of left vertebral artery is not visualized. Proximal segments of anterior, middle and posterior cerebral arteries demonstrate patent flow without a hemodynamically significant stenosis or occlusion. ??Anterior communicating artery is visualized. Posterior communicating arteries are not well visualized bilaterally. No intracranial aneurysm or AVM is noted. Procedure Note May Martinez MD - 02/25/2021 EXAMINATION: CT Angio Head; CT Angio Neck CLINICAL INDICATION: R53.1: Weakness TECHNIQUE: Arterial phase thin-slice spiral images were obtained during rapid infusion of intravenous contrast from the top of the aortic archto the vertex. Multiplanar 2-D reconstructions were performed. Multiplanar 2-D reformats were performed. For better evaluation of vessel anatomyand pathology, post-processing was done to include MIP in the head and MIP, 3-D volume rendered, and curved multiplanar 2-D reconstructions in the neck. All internal carotid artery percent stenoses are calculated using the distal internal carotid artery diameter as the denominator (NASCET criteria). IV Contrast: 75 mL Isovue-[id number]. COMPARISON: 02/25/[address] FINDINGS: Neck CTA: Normal branching pattern of aortic arch is noted. There is nosignificant stenosis or occlusion involving the first order branches arising fromthe aortic arch. There is a small area of atherosclerotic disease/plaquealong the superior medial border of the aortic arch just distal to the originof the left subclavian artery. Vertebral artery system: Segmental high-grade stenosis involving the proximal V1 segment of right vertebral artery just distal to its origin. The remainder of thecervical segments of right vertebral artery demonstrates no significant stenosisor occlusion. Segmental high-grade stenosis within the V1 segment of the smaller left vertebral artery with patent opacification within the distal V1 and proximal V2 segments. Multifocal at least moderate stenoses are present within the V2 segment. Faint opacification of the V3 segment is noted without opacification of the intracranial V4 segment. Right carotid artery system: Calcified atherosclerotic disease involves right CCA bifurcation andright ICA bulb without hemodynamically significant stenosis. The cervical segment of right ICA demonstrates no significant stenosis. Left carotid artery system: Calcified atherosclerotic disease involves left ICA bulb with approximately 55-60% diameter stenosis. The cervical segment of left ICA demonstrates no significant stenosis. Head CTA: Calcified atherosclerotic disease involves the cavernous segments ofICAs bilaterally with multifocal mild stenoses within the cavernous and proximal supraclinoid segments of right ICA and at least moderate segmental stenosis within the proximal cavernous, distal anterior cavernous and proximal supraclinoid segments of left ICA. Intracranial segment of right vertebral artery demonstrates patent flow without a significant stenosis or occlusion. There is a focal at least moderate stenosis within the proximal basilar artery. The intracranial segment of left vertebral artery is not visualized. Proximal segments of anterior, middle and posterior cerebral arteries demonstrate patent flow without a hemodynamically significant stenosisor occlusion. Anterior communicating artery is visualized. Posterior communicating arteries are not well visualized bilaterally. No intracranial aneurysm or AVM is noted. IMPRESSION: 1. Segmental high-grade stenosis involving the proximal V1 segments of vertebral arteries bilaterally. Multifocal at least moderate stenosis within the V2 segment of left vertebral artery which is occluded at theV3 V4 junction. 2. Approximately 55-60% diameter stenosis within the proximal left ICA bulb. 3. Focal at least moderate stenosis within the proximal basilar artery. 4. Multifocal atherosclerotic disease or stenosis involving thebilateral cavernous and proximal supraclinoid ICAs. 5. No acute intracranial large artery occlusion. This report was electronically signed by MAY MARTINEZ on 02/25/2021 12:20PM . Shane Fajardo MD CT ORDERABLES * BLOOD TYPE VERIFICATION (02/25/2021 11:30 AM CDT) [facility] ABO Rh O POS 02/25/2021 12:50 PM CDT [facility] Blood Bank BLOOD SPECIMEN / Unknown Lab Venipuncture / Unknown 02/25/2021 11:30 AM CDT 02/25/2021 12:21 PM CDT Provider Unknown LAB - BLOOD BANK ORD ERABLES [facility] [address] [place] [address], [facility] [phone] * CREATININE - POCT INTERFACED (02/25/2021 11:25 AM CDT) [facility] Creatinine POCT 0.73 0.30 - 1.30 mg/dL 02/25/2021 11:29 AM CDT [facility] eGFR >60 >60 mL/min/1.7 3 m2 02/25/2021 11:29 AM CDT [facility] Blood BLOOD SPECIMEN / Unknown 02/25/2021 11:25 AM CDT 02/25/2021 11:28 AM CDT Shane Fajardo MD LAB - POINT OF CAR E ORDERABLES [facility] [address] [place] [address], [facility] [phone] * CT BRAIN - Stroke (02/25/2021 11:19 AM CDT) Anatomical Region Laterality Modality Head Computed Tomogra phy 02/25/2021 11:3 3 AM CDT Impressions 02/25/2021 11:42 AM CDT IMPRESSION: 1. No acute hemorrhage or large acute infarction. 2. Chronic moderate cerebral and cerebellar volume loss with chronic microvascular ischemic disease with multiple bilateral basal ganglia and thalamic microinfarctions. 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 3. Findings were called by Dr. Mercedes, limited radiology technician to Dr. Finley at 11:25 AM. This report was electronically signed by MAY MARTINEZ ??on 02/25/2021 11:42 AM . Narrative 02/25/2021 11:42 AM CDT EXAM: CT BRAIN WITHOUT CONTRAST CLINICAL INDICATION: Code Stroke TECHNIQUE: Contiguous axial images through head were obtained without intravenous contrast administration. ??Brain and bone window images were obtained. COMPARISON: 08/13/[address] FINDINGS: Brain parenchyma: Chronic moderate cerebral and cerebellar volume loss is present. ??There are areas of discrete small and patchy hypodensities consistent with mild chronic microvascular ischemic changes. 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 Bilateral chronic thalamic, bilateral basal ganglia and subinsular lacunar infarctions are also noted. No large acute infarction, hemorrhage, mass or abnormal extra-axial fluid collection is present. Ventricles and the midline: Ventricles are normal without a midline shift or hydrocephalus. Skull and soft tissues: No acute fracture, bony or soft tissue abnormality. ??Chronic left paramedian occipital scalp subcutaneous lesion is present probably representing a trichilemmal cyst. Extracranial structures: Orbits are normal bilaterally. Old fracture deformity of the medial wall of left orbit. Mild paranasal sinus mucosal disease within bilateral frontal, ethmoid and sphenoid sinuses. Complete opacification of right maxillary sinus with soft tissue density protruding into the right nasal cavity. ??Visualized mastoids and tympanic cavities demonstrate no significant opacification. Procedure Note May Martinez MD - 02/25/2021 EXAM: CT BRAIN WITHOUT CONTRAST CLINICAL INDICATION: Code Stroke TECHNIQUE: Contiguous axial images through head were obtained without intravenous contrast administration. Brain and bone window images were obtained. COMPARISON: 08/13/[address] FINDINGS: Brain parenchyma: Chronic moderate cerebral and cerebellar volume loss is present. There are areas of discrete small and patchy hypodensities consistent withmild chronic microvascular ischemic changes. 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 Bilateral chronic thalamic, bilateral basal ganglia and subinsularlacunar infarctions are also noted. No large acute infarction, hemorrhage, mass or abnormal extra-axialfluid collection is present. Ventricles and the midline: Ventricles are normal without a midline shift or hydrocephalus. Skull and soft tissues: No acute fracture, bony or soft tissue abnormality. Chronic left paramedian occipital scalp subcutaneous lesion is present probably representing a trichilemmal cyst. Extracranial structures: Orbits are normal bilaterally. Old fracture deformity of the medial wall of left orbit. Mild paranasal sinus mucosal disease within bilateral frontal, ethmoid and sphenoid sinuses. Complete opacification of right maxillary sinus with softtissue density protruding into the right nasal cavity. Visualized mastoids and tympanic cavities demonstrate no significant opacification. IMPRESSION: 1. No acute hemorrhage or large acute infarction. 2. Chronic moderate cerebral and cerebellar volume loss with chronic microvascular ischemic disease with multiple bilateral basal ganglia and thalamic microinfarctions. 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 3. Findings were called by Dr. Mercedes, limited radiology technician to Dr. Finley at 11:25 AM. This report was electronically signed by MAY MARTINEZ on 02/25/2021 11:42AM . Shane Fajardo MD CT ORDERABLES * GLUCOSE - POINT OF CARE (02/25/2021 11:08 AM CDT) Glucose WB/POC 83 70 - 115 mg/dL 02/25/2021 12:49 PM CDT [facility] Specimen Type Cap Fingerstick 2020 12:49 PM CDT [facility] Blood BLOOD SPECIMEN / Unknown 02/25/2021 11:08 AM CDT 02/25/2021 12:49 PM CDT Provider Unknown LAB - POINT OF CARE ORDERABLES Performing Organization Address City/State/[facility] Co de Phone Number [facility] [address] [place] [address], [facility] [phone] documented in this encounter Visit Diagnoses Diagnosis Weakness Other malaise and fatigue Postictal state (HCC) Abnormal findings on diagnostic imaging of central nervous system Unspecified abnormal function study of brain and central nervous system documented in this encounter Administered Medications Inactive Administered Medications - up to 3 most recent administrations Medication Order MAR Action Action Date Dose Rate Site 0.9% NaCl injection 1-10 mL 1-10 mL, Intracatheter, PRN, Other, peripheral line flush, Starting on Tue02/25/21 at 1103, Until Tue02/25/21 at 2313, Flush peripheral IV catheter with 1-10 mL of normal saline before and after medications and prn to clear blood from the line or to verify patency. 0.9% NaCl injection 3 mL 3 mL, Intracatheter, EVERY 8 HOURS, First dose on Tue02/25/21 at 1400, Until Discontinued, Flush peripheral IV catheter with 3 mL of normal saline every 8 hours. $ Given 02/25/2021 3:23 PM CDT 3 mL acetaminophen (Tylenol) tablet 975 mg 975 mg, Oral, NOW, 1 dose, On Tue02/25/21 at 1515 $ Given 02/25/2021 3:23 PM CDT 975 mg iopamidol (Isovue 370) 76 % contrast Intravenous, CONTRAST ONCE, Starting on Tue02/25/21 at 1126, Until Tue02/25/21 at 2313 $ Given - Contrast 02/25/2021 11:26 AM CDT 75 mL levETIRAcetam (Keppra) 1,000 mg in 100 mL IVPB 1,000 mg, at 400 mL/hr, Intravenous, ONCE, 1 dose, On Tue02/25/21 at 1530 $ New Bag/Syringe 02/25/2021 3:20 PM CDT 1,000 mg 400 mL/hr documented in this encounter Active and Recently Administered Medications Times are shown in CDT. Scheduled Medication Order 02/23/2021 02/24/2021 02/25/2021 0.9% NaCl injection 3 mL(Linked Group 1) 3 mL, Intracatheter, EVERY 8 HOURS, First dose on Tue02/25/21 at 1400, Until Discontinued, Flush peripheral IV catheter with 3 mL of normal saline every 8 hours. 1523 ($ Given - Prov ider: Clovre Kiser, ALFRED) acetaminophen (Tylenol) tablet 975 mg (COMPLETED) 975 mg, Oral, NOW, 1 dose, On Tue02/25/21 at 1515 1523 ($ Given - Prov ider: Clover Kiser, ALFRED) iopamidol (Isovue 370) 76 % contrast Intravenous, CONTRAST ONCE, Starting on Tue02/25/21 at 1126, Until Tue02/25/21 at 2313 1126 ($ Given - Cont rast - Provider: Nadir Sky, RT(R)) levETIRAcetam (Keppra) 1,000 mg in 100 mL IVPB (COMPLETED) 1,000 mg, at 400 mL/hr, Intravenous, ONCE, 1 dose, On Tue02/25/21 at 1530 1520 ($ New Bag/Syri nge - Provider: Aureliano Knox, ALFRED)1600 (Stopped - Provider: Clover Kiser, ALFRED) PRN Medication Order 02/23/2021 02/24/2021 02/25/2021 0.9% NaCl injection 1-10 mL(Linked Group 1) 1-10 mL, Intracatheter, PRN, Other, peripheral line flush, Starting on Tue02/25/21 at 1103, Until Tue02/25/21 at 2313, Flush peripheral IV catheter with 1-10 mL of normal saline before and after medications and prn to clear blood from the line or to verify patency. Linked Groups Order Group 1: SALINE LOCK, INSERT AND MAINTAIN (CANCELED) Routine, CONTINUOUS, Starting on Tue02/25/21 at 1115, Until Specified, New collection, Task Completed: Yes And 0.9% NaCl injection 3 mLJump to med 3 mL, Intracatheter, EVERY 8 HOURS, First dose on Tue02/25/21 at 1400, Until Discontinued, Flush peripheral IV catheter with 3 mL of normal saline every 8 hours. And 0.9% NaCl injection 1-10 mLJump to med 1-10 mL, Intracatheter, PRN, Other, peripheral line flush, Starting on Tue02/25/21 at 1103, Until Tue02/25/21 at 2313, Flush peripheral IV catheter with 1-10 mL of normal saline before and after medications and prn to clear blood from the line or to verify patency. documented in this encounter Care Teams Sand Slinger Relationship Specialty Start Date End Date Daryl Barr MD PCP - General 09/16/20 03/07/22 Elizabeth Sullivan RN Roof Cement And Paint Maker 10/14/17 documented as of this encounter
--- OUTSIDE RECORDS SUMMARY | 2024-06-08 05:42 | XMS_ITS | Encounter Summary ---
Author Organization [facility] Health Address [address] [facility] [place] [address] Care Team Providers Care Rn Cardiac Name Role Phone Elizabeth Sullivan RN Unavailable [phone] Daryl Barr MD Primary Care Provider [phone] Reason for Visit * Reason Onset Date Comments General 12/11/2020 request transfer to facility Encounter Details Date Type Department Care Team (Late st Contact Info) Description 12/11/2020 Telephone [facility] [address] [facility], [place] [address] Sean Raymundo, DO [address] [address] General (request transfer to facility) Social History Tobacco Use Types Packs/Day Years [...] Telephone Encounter - Evy Frost, RN - 12/11/2020 2:17 PM CDT Received message from POA stating that patient is currently in patient at [facility]. States patient's medications were messed up by skilled nursing . She is requesting that patient be transferred to [facility] for care from [facility]. Will forward to Provider. Spoke to POA - she is aware of protocol for transfer as it has had to be done before. She called clinic to provide a heads up to Dr. Gardner and Dr. Raymundo.. she verbalizes thanks for return call. documented in this encounter Plan of Treatment Upcoming Encounters Date Type Department Care Team (Late st Contact Info) Description 12/05/2024 1:00 PM CDT Office Visit [facility] - Neurology [address] [place] [address], [facility] [place] [address] Sean Raymundo, [address] [place] [address] [place] [address] documented as of this encounter Visit Diagnoses Not on filedocumented in this encounter Care Teams Rn Cardiac Relationship Specialty Start Date End Date Daryl Barr MD PCP - General 09/16/20 03/07/22 Elizabeth Sullivan, ALFRED Salvage Mechanic 10/14/17 documented as of this encounter
--- OUTSIDE RECORDS SUMMARY | 2024-06-08 05:42 | XMS_ITS | Encounter Summary ---
Author Organization [facility] Health Address [address] [facility] [place] [address] Care Team Providers Care Kitchen Hand Name Role Phone Misael Maradiaga DO Primary Care Provider Elizabeth Sullivan RN Unavailable [phone] Reason for Visit * Reason Onset Date Comments Results 06/25/2019 Encounter Details Date Type Department Care Team (Late st Contact Info) Description 06/25/2019 Telephone [facility] [address] [place] [address] Ck Feliciano MD [address] [place] [phone] Results Social History Tobacco Use Types Packs/Day [...] Telephone Encounter - Evy Frost, RN - 06/25/2019 11:07 AM PRESSURE TANK OPERATOR Per Dr. Feliciano: Please call his sister or brother (Mychart is probably not good for them), and tell them that the prior changes (brightness) that we have concerns about has resolved, and that is good. ??He still does has residual changes from his old strokes though, and those are permanent. There is some sinus issues, probably inflammation. ??If he has a lot of nasal issues, he might wantto get his nose/sinuses checked out. Spoke to sister - reviewed above results. States she can tell as he is back to himself. States he had a cold when MRI is done but it has resolved. She verbalizes thanks for call/results and will comewith patient next month to be seen. SURE TANK OPERATOR documented in this encounter Plan of Treatment Upcoming Encounters Date Type Department Care Team (Late st Contact Info) Description 12/05/2024 1:00 PM CDT Office Visit [facility] - Neurology [address] [place] [address], [place] [address] Sean Raymundo DO [address] [place] [address] [place] [address] documented as of this encounter Visit Diagnoses Not on filedocumented in this encounter Care Teams Kitchen Hand Relationship Specialty Start Date End Date Misael Maradiaga DO PCP - General 10/03/17 09/15/20 Elizabeth Sullivan, RN Hot Mix Operator 10/14/17 documented as of this encounter
--- OUTSIDE RECORDS SUMMARY | 2024-06-08 05:42 | XMS_ITS | Encounter Summary ---
Author Organization [facility] Health Address [address] [facility] [place] [address] Care Team Providers Care Licensed Therapist Name Role Phone Misael Maradiaga DO Primary Care Provider Elizabeth Sullivan RN Unavailable [phone] Encounter Details Date Type Department Care Team (Latest Contact Info) Description 11/28/2019 Travel Social History Tobacco Use Types Packs/Day [...] Coronavirus / COVID-19? Unable to assess 11/28/2019 12:41 PM CDT documented as of this encounter [...] Visit [facility] - Neurology [address] [facility], [place] [address] Sean Raymundo DO [address] [place] [address] [place] [phone] documented as of this encounter Visit Diagnoses Not on filedocumented in this encounter Care Teams Licensed Therapist Relationship Specialty Start Date End Date Misael Maradiaga DO PCP - General 10/03/17 09/15/20 Elizabeth Sullivan, RN Hot Water Heater Installer 10/14/17 documented as of this encounter
--- OUTSIDE RECORDS SUMMARY | 2024-06-08 05:42 | XMS_ITS | Encounter Summary ---
Author Organization [facility] Health Address [address] [facility] [place] [address] Care Team Providers Care Kilnman Name Role Phone Misael Maradiaga DO Primary Care Provider Elizabeth Sullivan RN Unavailable Reason for Visit * Reason Comments Seizure Pt was d/c today aft er IR. Family reports that pt had a seizure 15 mins BURNT LIME DRAWER that lasted approx 3 mins. Hx of seizure. Encounter Details Date Type Department Care Team (Late st Contact Info) Description 07/18/2019 8:44 PM MIXING PICKER TENDER - 07/18/2019 9:59 PM MIXING PICKER TENDER Emergency [facility] EMERGENCY DEPARTMENT [address] [place] [address] Procedure and treatment not carried out due to patient leaving prior to being seen by health care provider Discharge Disposition: Left Against Medical Advice/Discontinued Care [...] Sign Reading Time Taken Comments Blood Pressure 171/77 07/18/2019 8:46 PM MIXING PICKER TENDER Pulse 101 07/18/2019 8:46 PM MIXING PICKER TENDER Temperature 36.6 ??C (97.8 ??F) 07/18/2019 8:[address] Respiratory Rate 16 07/18/2019 8:46 PM MIXING PICKER TENDER Oxygen Saturation 99% 07/18/2019 8:46 PM MIXING PICKER TENDER Inhaled Oxygen Concentration - - Weight 61.2 kg (135 lb) 07/18/2019 8:46 PM MIXING PICKER TENDER Height 180.3 cm (5' 11 ) 07/18/2019 8:46 PM MIXING PICKER TENDER Body Mass Index 18.83 07/18/2019 8:46 PM MIXING PICKER TENDER documented in this encounter Functional Status Functional [...] 10/26/2018 03/12/2021 documented as of this encounter ED Notes * Loretta Martinez, RN - 07/18/2019 9:58 PM CST Family states that they feel comfortable taking pt home at this time, due to pt not having anymore seizure activity since arriving to ED. Family told of the risk of leaving without seeing MD. Family aware states will come back if have any other problems. NG PICKER TENDER documented in this encounter Plan of Treatment Upcoming Encounters Date Type Department Care Team (Late st Contact Info) Description 12/05/2024 1:00 PM CDT Office Visit [facility] - Neurology [address] [place] [address], [place] [address] Sean Raymundo DO [address] [place] [address] [place] [phone] documented as of this encounter Visit Diagnoses Diagnosis Procedure and treatment not carried out due to patient leaving prior to being seen by health care provider documented in this encounter Care Teams Kilnman Relationship Specialty Start Date End Date Misael Maradiaga DO PCP - General 10/03/17 09/15/20 Elizabeth Sullivan, ALFRED Electrical Worker 10/14/17 documented as of this encounter
--- OUTSIDE RECORDS SUMMARY | 2024-06-08 05:42 | XMS_ITS | Encounter Summary ---
Author Organization [facility] Health Address [address] [facility] [address] Care Team Providers Care Layout Technician Name Role Phone Misael Maradiaga DO Primary Care Provider Elizabeth Sullivan RN Unavailable [phone] Reason for Visit * Radiology Services (Routine) - Closed Specialty Diagnoses / Procedures Referred By Contac t Referred To Contact MRI Diagnoses Intractable epilepsy with status epilepticus, unspecified epilepsy type (HCC) Procedures MRI BRAIN WWO CONTRAST Ck Feliciano MD [address] [facility] [address] [place] [address] [facility] [address] [place] [address] Referral ID Status Reason Start Date Expiration Date Visits Re quested Visits Authorized [id number] Closed 06/07/2019 07/22/2019 1 1 Encounter Details Date Type Department Care Team (Latest Contact Info) Description 06/16/2019 10:53 AM ONCOLOGY PHARMACIST - 06/16/2019 11:59 PM ONCOLOGY PHARMACIST Hospital Encounter [facility] MRI [address] [place] [address] Ck Feliciano MD [address] [facility] [address] [place] [address] Radiology Diagnostic Discharge Disposition: Home or Self Care Social [...] 8 hours as needed. 30 tablet 5 10/26/2018 07/11/2019 Cyanocobalamin (B-12) 1000 MCGIndications:Vitamin B12 deficiency Take 1 mg by mouth once daily 30 capsule 11 10/26/2018 03/12/2021 folic acid (FOLVITE) 1 MG [...] PM CDT Office Visit [facility] - Neurology [address] [place] [phone] Sean Raymundo, DO [address] [place] [address] [place] [phone] documented as of this encounter Procedures Procedure Name Priority Date/Time Associated Diagnosis Comments MRI BRAIN WWO CONTRAST Routine 06/16/2019 1:35 PM ONCOLOGY PHARMACIST Intractable epilepsy with status epilepticus, unspecified epilepsy type (HCC) documented in this encounter Results * MRI BRAIN WWO CONTRAST (06/16/2019 1:35 PM ONCOLOGY PHARMACIST) Anatomical Region Laterality Modality Head Magnetic Resonan ce 06/18/2019 12:3 3 PM ONCOLOGY PHARMACIST Impressions 06/18/2019 12:51 PM ONCOLOGY PHARMACIST IMPRESSION: 1.No evidence of acute intracranial findings. 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 3.Redemonstration of severe right hippocampus volume loss. 4.Additional chronic findings as above. 5.Unchanged enhancing lesion in the right maxillary sinus. 6.Paranasal sinus disease. This report was electronically signed by WOJCIECH NEIL ??on 06/18/2019 12:51 PM . Narrative 06/18/2019 12:51 PM ONCOLOGY PHARMACIST MRI BRAIN WWO CONTRAST DATE: 06/16/2019 1:35 [...] imaged upper cervical spine. Procedure Note Wojciech Neil MD - 06/18/2019 MRI BRAIN WWO CONTRAST [...] report was electronically signed by WOJCIECH NEIL on06/18/2019 12:51 PM . Ck Feliciano MD MR ORDERABLES documented in this encounter Visit Diagnoses Diagnosis Intractable epilepsy with status epilepticus, unspecified epilepsy type (HCC) documented in this encounter Administered Medications Inactive Administered Medications - up to 3 most recent administrations Medication Order MAR Action Action Date Dose Rate Site gadobutrol (GADAVIST) injection Intravenous, CONTRAST ONCE, Starting on 06/16/19 at 1258, Until 06/17/19 at 0118 $ Given - Contrast 06/16/2019 12:59 PM ONCOLOGY PHARMACIST 7 mL documented in this encounter Care Teams Layout Technician Relationship Specialty Start Date End Date Misael Maradiaga DO PCP - General 10/03/17 09/15/20 Elizabeth Sullivan, ALFRED Shotblast Operator 10/14/17 documented as of this encounter
--- OUTSIDE RECORDS SUMMARY | 2024-06-08 05:42 | XMS_ITS | Encounter Summary ---
Author Organization [facility] Health Address [address] [facility] [place] [address] Care Team Providers Care Embroiderer Hand Name Role Phone Elizabeth Sullivan RN Unavailable [phone] Daryl Barr MD Primary Care Provider [phone] Reason for Referral * Radiology Services (Routine) - Closed Specialty Diagnoses / Procedures Referred By Anabella dan Referred To Contact Vascular Lab Diagnoses Vertebral artery stenosis, bilateral Carotid stenosis, bilateral Procedures VAS TRANSCRANIAL DOPPLER COMP Ousmane Frederick MD [address] [place] [address] [facility] Vascular Us [facility] [place] [address] Referral ID Status Reason Start Date Expiration Date Visits Re quested Visits Authorized [id number] Closed 02/26/2021 02/26/2022 1 1 * Radiology Services (Routine) - Closed Specialty Diagnoses / Procedures Referred By Anabella dan Referred To Contact Vascular Lab Diagnoses Vertebral artery stenosis, bilateral Carotid stenosis, bilateral Procedures VAS CAROTID DUPLEX BILATERAL Ousmane Frederick MD [address] [place] [address] [facility] Vascular Us [address] [place] [address] Referral ID Status Reason Start Date Expiration Date Visits Re quested Visits Authorized [id number] Closed 02/26/2021 02/26/2022 1 1 Reason for Visit * Reason Onset Date Comments Order 02/26/2021 Encounter Details Date Type Department Care Team (Late Contact Info) Description 02/26/2021 Telephone [facility] [address] [place] [phone] Meera Charles, SUMMER INTERN [address] [place] [address] Order Social History Tobacco Use Types Packs/Day [...] Encounters Date Type Department Care Team (Late Contact Info) Description 12/05/2024 1:00 PM CDT Office Visit [facility] - Neurology [address] [place] [phone] [place] [address] [place] [address] [place] [phone] documented as of this encounter Results * VAS CAROTID DUPLEX [...] encounter Visit Diagnoses Diagnosis Vertebral artery stenosis, bilateral- Primary Carotid stenosis, bilateral Occlusion and stenosis of multiple and bilateral precerebral arteries without mention of cerebral infarction Vertebral artery stenosis, bilateral Carotid stenosis, bilateral Occlusion and stenosis of multiple and bilateral precerebral arteries without mention of cerebral infarction Vertebral artery stenosis, bilateral Carotid stenosis, bilateral Occlusion and stenosis of multiple and bilateral precerebral arteries without mention of cerebral infarction documented in this encounter Care Teams Embroiderer Hand Relationship Specialty Start Date End Date Daryl Barr MD PCP - General 09/16/20 03/07/22 Elizabeth Sullivan, RN Ceramic Engineering Professor 10/14/17 documented as of this encounter
--- OUTSIDE RECORDS SUMMARY | 2024-06-08 05:42 | XMS_ITS | Encounter Summary ---
Author Organization 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) Procedures VAS ARTERIAL ANKLE ARM INDEX Vinicius Maldonado MD [address] [place] [address] [facility] Vascular Us [address] [place] [phone] Referral ID Status Reason Start Date Expiration Date Visits Re quested Visits Authorized [id number] Closed 06/15/2019 12/12/2019 1 1 OMER SUCCESS DIRECTOR Reason for Visit * Radiology Services (Routine) - Closed Specialty Diagnoses / Procedures Referred By Anabella dan Referred To Contact Vascular Lab Diagnoses 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) Procedures VAS ARTERIAL ANKLE ARM INDEX Vinicius Maldonado MD [address] [place] [address] [facility] Vascular Us [address] [place] [phone] Referral ID Status Reason Start Date Expiration Date Visits Re quested Visits Authorized [id number] Closed 06/15/2019 12/12/2019 1 1 Encounter Details Date Type Department Care Team (Latest Contact Info) Description 07/02/2019 2:20 PM CUSTOMER SUCCESS DIRECTOR - 07/02/2019 3:03 PM CUSTOMER SUCCESS DIRECTOR Hospital Encounter [facility]ULAR US [address] [place] [address] Ck Feliciano MD [address] [facility] 1L [place] [address] Discharge Disposition: Home or Self [...] tablet by mouth once daily 30 tablet 10/26/2018 03/12/2021 documented as of this encounter Plan of Treatment Upcoming Encounters Date Type Department Care Team (Late st Contact Info) Description 12/05/2024 1:00 PM CDT Office Visit [facility] - Neurology [address] [place] [phone] Sean Raymundo DO [address] [place] [address] documented as of this encounter Procedures Procedure Name Priority Date/Time Associated Diagnosis Comments VAS ARTERIAL ANKLE ARM INDEX Routine 07/02/2019 3:16 PM CUSTOMER SUCCESS DIRECTOR 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) documented in this encounter Results * VAS ARTERIAL ANKLE ARM INDEX (07/02/2019 3:16 PM CUSTOMER SUCCESS DIRECTOR) Anatomical Region Laterality Modality Ankle / Foot, Upper Extremity In travascular Ultrasound 07/02/2019 2:39 AM CUSTOMER SUCCESS DIRECTOR Narrative Procedure Note Shane Doyle MD - 07/02/2019 Vinicius Maldonado MD VASCULAR LAB ORDERAB LES documented in this encounter Visit Diagnoses Diagnosis 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
--- OUTSIDE RECORDS SUMMARY | 2024-06-08 05:42 | XMS_ITS | Encounter Summary ---
Author Organization [facility] Health Address [address] [facility] [place] [address] Care Team Providers Care Special Assets Officer Name Role Phone Misael Maradiaga DO Primary Care Provider Elizabeth Sullivan RN Unavailable [phone] Reason for Visit * Reason Comments Follow-up pad 3 week Encounter Details Date Type Department Care Team (Late st Contact Info) Description 12/26/2019 10:45 AM CDT Office Visit [facility] Vascular Surgery [address] [place] [address] Anna Membreno MD [address] [place] [phone] PAD (peripheral artery disease) (HCC) (Primary Dx) [...] Sign Reading Time Taken Comments Blood Pressure 143/85 12/26/2019 11:42 AM CDT Pulse 72 12/26/2019 11:42 AM CDT Temperature 36.7 ??C (98 ??F) 12/26/2019 11:42 AM CDT Respiratory Rate - - Oxygen Saturation 97% 12/26/2019 11:42 AM CDT Inhaled Oxygen Concentration - - Weight 61.2 kg (135 lb) 12/26/2019 11:42 AM CDT Height - - Body Mass Index 18.83 11/28/2019 11:48 AM [...] this encounter Patient Instructions * Patient Instructions* Brian Carmona MD - 12/26/2019 12:24 PM CDT Vascular Surgery Plan of Care -You were seen in clinic for peripheral arterial disease. -PAD is caused by blockages in the blood vessels of your legs. -You will need to follow-up with Dr. Membreno in 6 months. -To make, change or cancel an appointment please call . documented in this encounter Progress Notes * Anna Membreno MD - 12/26/2019 1:34 PM CDT Patient seen and examined. Interval history: much brighter since lowering antiseizure meds. No pain in lle. Doing well in [place] No changes to allergies, PMhx, Fhx or Social hx. PAST MEDICAL HX Past Medical History: Diagnosis Date ??? CVA (cerebral vascular accident) ??? HTN (hypertension) ??? Seizure FAMILY HISTORY No family history on file. ROS - There were no other cardiac, respiratory, neuro, GI, , musculoskeletal, psychiatric, constitutional, auditory or ophthalmologic signs or symptoms other than above. Physical Exam: Pt lean male in NAD BP 143/85 Pulse 72 Temp 98 ??F (36.7 ??C) Wt 135 lb (61.2 kg) SpO2 97% BMI 18.83 kg/m2 SpO2 Readings from Last 1 Encounters: 12/26/19 97% General: appears stated age, interactive, not frail Sheent: no masses, no skin lesions, no thyromegaly Eyes: perrla Neuro: CN 2-12 intact, symmetric motor exam, no sensory deficit Psychiatric: Normal mood, appropriate affect, no gross signs of impairment cardiovascular: RRR, no murmurs, no jvd Peripheral Vascular exam Of 4 extremities with pulses as noted Site Left Right Carotids 2 + 2 + Brachial 2 + 2 + Radial 2 + 2 + Femoral pulses 2 + 2 + Popliteal d + d + Dorsalis pedis d + d + Posterior tibial. d + d + Venous abnormalities: no no Hematologic, Lymphatic, immunologic: no edema, no excessive bruising, no palpable lymph nodes respiratory: cta and percussion, no rales, no rhonchi GI: Abdomen: soft, no hepatomegaly, nabs, no masses : nl genitalia Muskuloskeletal exam on Extremities: no masses, no tenderness, no deformity Wounds: darkish skin on left 3rd toe Labs/Xrays: mnoique with toe pressure on left of 40 up from 16 after angio Assesment and Plan: 59 year old male with chronic condition of pad complicated by other co morbid chronic diseases of sz disorder. Plan is for cont fup with monique and duplex in 6 months. Toe pressures markedly improved since intervention orders placed I have personally reviewed all available labs and radiologic images, coordinated care with staff and other services and discussed care with patient and available family Anna Membreno MD . documented in this encounter Plan of Treatment Upcoming Encounters Date Type Department Care Team (Late st Contact Info) Description 12/05/2024 1:00 PM CDT Office Visit [facility] - Neurology [address] [place] [address], [place] [address] Sean Rayumndo DO [address] [place] [phone] documented as of this encounter Visit Diagnoses Diagnosis PAD (peripheral artery disease) (HCC)- Primary Unspecified disorders of arteries and arterioles documented in this encounter Care Teams Special Assets Officer Relationship Specialty Start Date End Date Misael Maradiaga DO PCP - General 10/03/17 09/15/20 Elizabeth Sullivan, RN Military Aircraft Designer 10/14/17 documented as of this encounter
--- OUTSIDE RECORDS SUMMARY | 2024-06-08 05:42 | XMS_ITS | Encounter Summary ---
Author Organization [facility] Health Address [address] [facility] [place] [address] Care Team Providers Care Support Services Tech Name Role Phone Misael Maradiaga DO Primary Care Provider Elizabeth Sullivan RN Unavailable [phone] Reason for Visit * Radiology Services (Routine) - Closed Specialty Diagnoses / Procedures Referred By Contac t Referred To Contact Vascular Lab Diagnoses PAD (peripheral artery disease) (HCC) Procedures VAS ARTERIAL ANKLE ARM INDEX Anna Membreno MD [address] [facility] 2L [place] [address] [facility] Vascular Us [address] [place] [address] Referral ID Status Reason Start Date Expiration Date Visits Re quested Visits Authorized [id number] Closed 11/28/2019 11/27/2020 1 1 Encounter Details Date Type Department Care Team (Latest Contact Info) Description 12/26/2019 9:11 AM CDT - 12/26/2019 11:59 PM CDT Hospital Encounter [facility] VASCULAR US [address] [place] [address] Anna Membreno MD [address] [facility] 2L [place] [address] Discharge Disposition: Home or Self [...] Description 12/05/2024 1:00 PM CDT Office Visit [facility] - Neurology [address] [facility], [place] [address] Sean Raymundo, [address] [place] [phone] documented as of this encounter Procedures Procedure Name Priority Date/Time Associated Diagnosis Comments VAS ARTERIAL ANKLE ARM INDEX Routine 12/26/2019 10:30 AM CDT PAD (peripheral artery disease) (HCC) documented in this encounter Results * VAS ARTERIAL ANKLE ARM INDEX (12/26/2019 [...] arterioles documented in this encounter Care Teams Support Services Tech Relationship Specialty Start Date End Date Misael Maradiaga DO PCP - General 10/03/17 09/15/20 Elizabeth Sullivan, RN Drawing Checker 10/14/17 documented as of this encounter
--- OUTSIDE RECORDS SUMMARY | 2024-06-08 05:42 | XMS_ITS | Encounter Summary ---
Author Organization [facility] Health Address [address] [facility] [place] [address] Care Team Providers Care Managing Jeweler Name Role Phone Misael Maradiagajamel Primary Care Provider Elizabeth Sullivan RN Unavailable [phone] Encounter Details Date Type Department Care Team (Late st Contact Info) Description 07/11/2019 2:00 PM MAINTENANCE AND ENGINEERING MANAGER Office Visit [facility] Neurology [address] [place] [address] Ck Feliciano MD [address] [place] [phone] 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, intractable, without status epilepticus (HCC) (Primary Dx) [...] Sign Reading Time Taken Comments Blood Pressure 125/79 07/11/2019 1:28 PM MAINTENANCE AND ENGINEERING MANAGER Pulse 98 07/11/2019 1:28 PM MAINTENANCE AND ENGINEERING MANAGER Temperature - - Respiratory Rate - - Oxygen Saturation - - Inhaled Oxygen Concentration - - Weight 61.2 kg (135 lb) 07/11/2019 1:28 PM MAINTENANCE AND ENGINEERING MANAGER Height 180.3 cm (5' 11 ) 07/11/2019 1:28 PM MAINTENANCE AND ENGINEERING MANAGER Body Mass Index 18.83 07/11/2019 1:28 PM MAINTENANCE AND ENGINEERING MANAGER documented in this encounter Functional Status Functional [...] as of this encounter Progress Notes * Ck Feliciano MD - 07/11/2019 2:07 PM CST Epilepsy Clinic Note PCP Misael Maradiaga Date of Encounter: 07/11/2019 Chief Complaint: Seizures Gait difficulty MRI abnormality [...] every 1 month, now controlled from 04/2019 Seizure free interval Uncontrolled Date of last seizure 1. Unclear 2. 12/2018, then status epilepticus in 04/2019 suspected due to erratic dosing. Action Plan - MEDICATION Name Pill Size Frequency AED Level Start Levetiractam 1000 mg tab 2 - [address] 250 mg tab 3 - 3 Vimpat 200 tab 1 - 1 Clonazepam 0.5 mg tab PRN COMPLIANCE Good TREATMENT HISTORY [...] 05/12/2019, the electrographic seizures dissipated, replaced by predominantlyright central discharges and LPDs. ??Last electrographic seizure was identified at 09:33 AM on 05/11/2019. 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 Age of onset [id number]. Clinical semiology described as (Aura) tingling sensation [...] 05/2019 showed resolution of hypersignal changes. - Currently pending visit with Vascular Surgery for lower extremity arterial insufficiency. Allergies: No Known Allergies Home Medications: Current [...] file Social History Narrative Physical Exam: Vitals: 07/11/19 1328 BP: 125/79 Pulse: 98 Weight: 135 lb (61.2 kg) Height: 5' 11 (1.803 m) General Awake, alert, appropriate HEENT: Head normocephalic and atraumatic Extremities: No cyanosis or edema noted Cortical Function: MS: Awake, Alert, Follows Commands but erratic Oriented to Person, Place and Time Language: Fluent, Coherent, Repetition Intact Cranial Nerves: Full EOM, No ptosis or nystagmus No facial palsy Palate symmetric; Normal tongue protrusion Motor: Strength: RUE 4/5 LUE 4/5 RLE 4/5 LLE 4/5 Cerebellar: FNF intact bilaterally, but slow Assessment/Plan: -59-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 Age of onset at 50-year-old. Clinical semiology described as (Aura) tingling sensation over the right side, (Ictus #1) brief dyscognitive events, and (Ictus #2) generalized convulsions, tongue bites. Also has Cervical Osteoarthritis, B12 Deficiency, history of alcohol dependence resolved 2015. - Seizures controlled with Levetiracetam 2000 mg [...] 05/2019 showed resolution of hypersignal changes. - Will continue same AED. - Currently pending visit with Vascular Surgery for lower extremity arterial insufficiency. I have been repeating his C-spine MRIs for surveillance of his C- stenosis every 1 to 2 year. This year, will perform MRI C-spine after finished with Vascular surgery. If there is any concerning changes in C-spine MRI, will refer to Neurosurgery. Post-visit Antiepileptics Levetiractam 1000 mg tab 2 - [address] 250 mg tab 3 - 3 Vimpat 200 mg tab 1 - 1 Clonazepam 1 mg PRN to prevent clustering (Increased) Thiamine 100 mg 1 - 0 B12 1000 mcg 1 - 0 Folic 1 mg 1 - 0 MRI C-Spine to perform once vascular surgery issues are in process/completed. Neurosurgery referralif indicated based on imaging. I personally spent 25 minutes with the patient of which greater than 15 minutes were spent counseling the patient on diagnosis, treatment option, safety, and therapeutic planning. Ck Feliciano MD TENANCE AND ENGINEERING MANAGER documented in this encounter Plan of Treatment Upcoming Encounters Date Type Department Care Team (Late st Contact Info) Description 12/05/2024 1:00 PM CDT Office Visit [facility] - Neurology [address] [place] [address], [place] [address] Sean Raymundo, [address] [place] [address] [place] [address] documented as of this encounter Visit Diagnoses Diagnosis 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, intractable, without status epilepticus (HCC)- Primary documented in this encounter Care Teams Managing Jeweler Relationship Specialty Start Date End Date Misael Maradiaga DO PCP - General 10/03/17 09/15/20 Elizabeth Sullivan, RN Resident Care Manager 10/14/17 documented as of this encounter
--- OUTSIDE RECORDS SUMMARY | 2024-06-08 05:42 | XMS_ITS | Encounter Summary ---
Author Organization [facility] Health Address [address] [facility] [place] [address] Care Team Providers Care Machine Clothing Replacer Name Role Phone Misael Maradiaga DO Primary Care Provider Elizabeth Sullivan RN Unavailable [phone] Encounter Details Date Type Department Care Team (Latest Contact Info) Description 12/26/2019 Travel Social History Tobacco Use Types Packs/Day [...] [facility], [place] [phone] Sean Raymundo DO [address] [place] [address] OF NEUROLOGY [phone] documented as of this encounter Visit Diagnoses Not on filedocumented in this encounter Care Teams Machine Clothing Replacer Relationship Specialty Start Date End Date Misael Maradiaga DO PCP - General 10/03/17 09/15/20 Elizabeth Sullivan, RN Proof Carrier 10/14/17 documented as of this encounter
--- OUTSIDE RECORDS SUMMARY | 2024-06-08 05:42 | XMS_ITS | Encounter Summary ---
Author Organization [facility] Address [address] [place] [address] Care Team Providers Care Lockstitch Machine Operator Name Role Phone Elizabeth Sullivan RN Unavailable [phone] Daryl Barr MD Primary Care Provider [phone] Encounter Details Date Type Department Care Team (Late st Contact Info) Description 09/17/2020 10:00 AM CDT Office Visit [facility] [facility], [place] [address] Sean Raymundo DO [address] [place] [address] [place] [id number] Seizure (HCC) (Primary Dx); Swallowing impairment Social History Tobacco Use Types Packs/Day Years [...] Sign Reading Time Taken Comments Blood Pressure 134/85 09/17/2020 10:16 AM CDT Pulse 83 09/17/2020 10:16 AM CDT Temperature 36.2 ??C (97.2 ??F) 09/17/2020 10:16 AM C DT Respiratory Rate - - Oxygen Saturation 96% 09/17/2020 10:16 AM CDT Inhaled Oxygen Concentration - - Weight 61.2 kg (135 lb) 09/17/2020 10:16 AM CDT Height 180.3 cm (5' 11 ) 09/17/2020 10:16 AM CDT Body Mass Index 18.83 09/17/2020 10:16 AM CDT documented in this encounter Functional [...] this encounter Patient Instructions * Patient Instructions* Weston De Jesus MD - 09/17/2020 11:02 AM CDT Continue Keppra 2000mg BID Continue Depakote DR 1000mg BID Continue Vimpat 200mg BID Klonopin wean schedule - 1.5mg -0- 2 mg for 2 weeks - 1.5mg -0- 1.5mg for 2 weeks - 1mg -0- 1.5mg for 2 weeks - 1mg -0- 1mg for 2 weeks - 0.5mg -0- 1mg for 2 weeks - 0.5mg -0- 0.5mg for 2 weeks - 0 -0- 0.5mg for 2 weeks THEN STOP THE KLONOPIN Referral to speech therapy made - but appointment will be scheduled in November 2020 - once Klonopin isweaned to off and mentation improves. Follow up in 3-[address] Feliciano documented in this encounter Progress Notes * Weston De Jesus MD - 09/17/2020 11:16 AM CDT Neurology Note Date of Encounter: 09/17/20 Chief Complaint: Post stroke seizures follow up HPI: 60 year old with hx of R MCA stroke and epilepsy. AGE OF ONSET 30s ?? SEMIOLOGY - Aura Tingling sensation over the right side - Ictus 1. Dyscongitive events 2. Convulsions, tongue bites - Post-ictus Confusion, aggression, disagreeable, ?paranoia, lasting several days ?? SEIZURE CONTROL Seizure frequency Last GTCS in July 2020, none since being discharged from the hospital. ?? MEDICATION Name Pill Size Frequency AED Level Start Levetiractam 1000 mg tab 2 - [address] 500 mg tab 2 - 2 Vimpat 200 tab 1 - 1 Clonazepam 2 mg BID ?? COMPLIANCE Good ?? TREATMENT HISTORY Name Allergy/Side Effects/Ineffectiveness Phenytoin Oxcarbazepine Hyponatremia Eslicabazepine Erratic ?? EE07/2015 Normal awake and drowsy EEG ?? 09/2017 cEEG This is an abnormal EEG. [...] temporal??focal slowing, suggestive of underlinestructure/functional abnormalities. ?? 04/2019 cEEG This is an abnormal cEEG due to 1) focal onset seizures, 2) right hemispheric epileptiform discharges and lateralized periodic discharges (LPDs), 3) lateralized right hemispheric slowing, and 4) moderate generalized slowing. ?? IMAGIN07/2016 CT Brain: Focal area of encephalomalacia in the right occipital lobe 01/2018 MRI C-Spine showed multilevel C-stenosis 04/2019 MRI Brain showed right hemispheric cortical and thalamic FLAIR/DWI changes ?? CLASSIFICATION: Partial onset epilepsy INTERVAL HISTORY: - Of note, patient had breakthrough seizures last month for which he required admission to [facility]. Hisnursing home [employer]MI[employer] had made changes to his AED dosing prior to onset of 3 back to back seizures in . While inpatient, though his clinical seizures were able to be controlled after restartinghis AED regimen, he continued to have right hemispheric electrographic seizures that required him to be started on clonazepam 2mg BID. Today, jail MAR does reflect AED regimen at discharge. No breakthrough sz since discharge. Concern of side effects - very drowsy, less interactive, more mute. Of note, ST mejia, concern with his mentation so prescribed pureed diet/nectar thick. Continued at jail. Sister would like that re-evaluated. ROS: General - Denies changes in weight or [...] or blood abnormalities Neurological - See HPI Allergies: No Known Allergies Home Medications: [...] Social Determinants of Health Financial Resource Strain: ??? Difficulty of Paying Living Expenses: Food Insecurity: ??? Worried About Running Out of Food in the Last Year: ??? Ran Out of Food in the Last Year: Transportation Needs: ??? Lack of Transportation (Medical): ??? Lack of Transportation (Non-Medical): Physical Activity: ??? Days of Exercise per Week: ??? Minutes of Exercise per Session: Stress: ??? Feeling of Stress : Social Connections: ??? Frequency of Communication with Friends and Family: ??? Frequency of Social Gatherings with Friends and Family: ??? Attends Synagogue Services: ??? Active Member of Clubs or Organizations: ??? Attends Club or Organization Meetings: ??? Marital Status: Intimate Partner Violence: ??? Fear of Current or Ex-Partner: ??? Emotionally Abused: ??? Physically Abused: ??? Sexually Abused: Physical Exam: Vitals: 09/17/20 1016 BP: 134/85 Pulse: 83 Temp: 97.2 ??F (36.2 ??C) SpO2: 96% Weight: 135 lb (61.2 kg) Height: 5' 11 (1.803 m) General: Con - NAD, afebrile Heent - NCAT, MMM, anicteric Neck - No JVD, LAD, trachea midline CV - RRR for age, normal s1/s2, no m/r/g Pulm - CTAB, no w/r/r Abd - BS+, soft, NTND Ext: No c/c/e, 2+ dpp, normal ROM Cortical Function Mental Status Drowsy but easy to wake, alert, follows commands Orientation Person, place, time, and situation Language Fluency intact but speaks slowly and in very short phrases, comprehension intact, repetition intact Visual Ivan Intact bilaterally to confrontation Neglect No visual neglect noted, no tactile neglect noted Cranial Nerves II Pupils 4 mm and bilaterally reactive to light. Fundoscopic exam not performed. VIII Hearing is intact bilaterally to finger rub. III/IV/ Right gaze preference IX/X Palate elevated symmetrically without phonation abnormalities noted. V Facial sensation symmetric to light touch and intact bilaterally. Corneal reflex not examined. XIHead turning and shoulder shrug are intact. VII L UMN facial palsy XII Tongue is midline with normal movements and no atrophy noted. Motor Function Movement No abnormalities noted Bulk No abnormalities noted Tone No abnormalities noted Proximal Upper Distal Upper Proximal Lower Distal Lower Right 5/5 5/5 5/5 5/5 Left 3+/5 3+/5 3+/5 3+/5 Muscle Stretch Reflexes BI TRI PAT ACH TOES Right 2 2 2 2 Down Left 2+ 2+ 3+ 2 Down Sensory Large Fiber Sensation Light Touch Symmetrically intact, distally and proximally. Proprioception Symmetrically intact, distally and proximally. Small Fiber Sensation Noxious Stimuli Symmetrically intact, distally and proximally. Temperature Symmetrically intact, distally and proximally. Cerebellar FNF FREEDOM HKS Right Intact Deferred Intact Left Intact Deferred Intact Gait Wheelchair bound Assessment: 60 year old with hx of epilepsy that recently has been hard to control - currently well controlled on Keppra, Depakote, Vimpat and Klonopin, however, concerns of klonopin causing increased drowsinessand decreased cognition. Therefore we will plan to wean at this time. Swallow reassessment, once we are able to achieve some improvement in mentation with weaning clonazeapm - can see ST as an outpatient. Plan: - Continue Keppra 2g BID - Continue Depakote DR 1g BID - Continue Vimpat 200mg BID - We will initiate klonopin - by 0.5mg every 2 weeks to off. Will stop in 7 weeks or so. - Referral to speech therapy made - but appointment will be scheduled in November 2020 - once Klonopin is weaned to off and mentation improves. - Follow up in 3-[address] Feliciano Case findings discussed with Dr. Raymundo, Neurology Attending. Weston Stockton MD Neurology Resident Pt seen and examined on 09/17/2020. I agree with the findings and plan as outlined in the trainee note. I personally spent 30 minutes on 09/17/2020 preparing to see the patient (e.g. reviewing chart, review of tests), obtaining and/or reviewing the separately obtained history, performing a medically necessary and appropriate examination and evaluation, counseling and educating the patient/family/caregiver, ordering medications, tests, or procedures, documenting in the patient record, and communicating results to the patient/family/caregiver. Sean Raymundo DO documented in this encounter Plan of Treatment Upcoming Encounters Date Type Department Care Team (Late st Contact Info) Description 12/05/2024 1:00 PM CDT Office Visit [facility] - Neurology [address] [place] [address], [place] [address] Sean Raymundo DO [address] [place] [phone] documented as of this encounter Visit Diagnoses Diagnosis Seizure (HCC)- Primary Other convulsions Swallowing impairment Dysphagia, unspecified documented in this encounter Care Teams Lockstitch Machine Operator Relationship Specialty Start Date End Date Daryl Barr MD PCP - General 09/16/20 03/07/22 Elizabeth Sullivan, RN Paraffin Machine Operator 10/14/17 documented as of this encounter
--- OUTSIDE RECORDS SUMMARY | 2024-06-08 05:42 | XMS_ITS | Encounter Summary ---
Author Organization [facility] Health Address [address] [place] [address] Care Team Providers Care Job Counselor Name Role Phone Misael Maradiaga DO Primary Care Provider Elizabeth Sullivan RN Unavailable [phone] Reason for Visit * Reason Comments Seizure Patient BIBEMS for m ultiple seizures. Seizues were witnessed by roommate being ~1 minute in length. EMS withnessed 3 seizures ~1 minute in length, no loss of bowel or bladder, no post-ictal period. * Auth/Cert Specialty Diagnoses / Procedures Referred By Anabella t Referred To Contact Referral ID Status Reason Start Date Expiration Date Visits Re quested Visits Authorized [id number] 1 1 Encounter Details Date Type Department Care Team (Latest Contact Info) Description 08/13/2020 2:54 PM CDT - 08/21/2020 8:24 PM CDT Hospital Encounter [facility] 5N ACUTE [address] [place] [id number] Shane Fajardo MD [address] [place], [place] [id number] Baldev Carl MD [address] [facility] 1[address] [place] [address] Neurology Discharge Disposition: [facility] Facility Social History Tobacco Use Types Packs/Day [...] Sign Reading Time Taken Comments Blood Pressure 134/86 08/21/2020 3:33 PM CDT Pulse 102 08/21/2020 3:33 PM CDT Temperature 36.8 ??C (98.2 ??F) 08/21/2020 3:33 PM CD T Respiratory Rate 18 08/21/2020 3:33 PM CDT Oxygen Saturation 94% 08/21/2020 3:33 PM CDT Inhaled Oxygen Concentration - - Weight 67.6 kg (149 lb) 08/13/2020 3:09 PM CDT s tated Height 180.3 cm (5' 11 ) 08/13/2020 3:09 PM CDT Body Mass Index 20.78 08/13/2020 3:09 PM CDT documented in this encounter Functional [...] 08/18/2020 documented as of this encounter Discharge Summaries * Neli Collazo MD - 08/21/2020 12:38 PM CDT Physician Discharge Summary Patient ID: Mojgan Tabor [id number] 60 year old 1960 Admit date: 08/13/2020 Discharge date and time: Admitting Physician: Baldev Carl MD Discharge Physician: Crescencio Carney MD Admission Condition: poor Discharged Condition: stable Consults: None Reason for admission: Seizures Hospital Course: Mojgan Tabor??is a??60 year old??male??with a 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 Over the last month described about 2 seizures every 2 days. On arrival he had 3 seizures each lasting 1 minute, described as GTCs. He was admitted to neurology [facility] on cEEG. His home AED medications were resumed (2g Keppra BID, [address] BID, and 200 mg Vimpat BID), and he was started on klonopin 1 mg TID. He continued to have multiple electrographic right hemisphere seizures, and was loaded with 1.5 g Depakote due to low level (13). Brain MRI was done which showed no acute intracranial pathology. Klonopin was increased to 2 mg BID due to continuing seizures.??On 08/19 his seizures resolved with medication regime. Hospital course was complicated by development of fever and UTI. He was treated with ceftriaxone and transitioned to PO cefpodoxime on discharge. Patient discharged in stable condition back to his nursing facility. Discharge Exam: Patient Vitals for the past 6 hrs: Temp Pulse Resp BP 08/21/20 1533 98.2 ??F (36.8 ??C) 102 18 134/86 08/21/20 1149 98.3 ??F (36.8 ??C) (!) 115 18 130/88 08/21/20 1148 98.3 ??F (36.8 ??C) (!) 115 18 130/88 Cortical Function Mental Status Awake, alert, follows commands Orientation Person, place, time, and situation Language Fluency intact, comprehension intact, repetition intact Visual Ivan Intact bilaterally to confrontation?? Neglect Some left sided hemineglect? Cranial Nerves II Pupils??4??mm and bilaterally reactive to light. Fundoscopic exam not performed. VIII Hearing isintact bilaterally to finger rub. III/IV/ Left gaze preference, but crosses eyes midline. No diplopia, ptosis, nystagmus or convergence abnormalities noted. IX/X Palate elevated symmetrically without phonation abnormalities noted. V Facial sensation symmetric to light touch and intact bilaterally. Corneal reflex not examined. XIHead turning and shoulder shrug are intact. VII Left facial droop?? XII Tongue is midline with normal movements and no atrophy noted. ?? Motor Function Movement No abnormalities noted Bulk No abnormalities noted Tone Increased in LUE/LLE Moves all extremities spontaneously and antigravity, does not cooperate with formal strength assessment. Withdraws in all 4 extremities ?? Muscle Stretch Reflexes ?? BI TRI BR PAT ACH TOES Right 2 2 2 2 2 Down Left 3 3 3 3 3 Up ?? Sensory Intact to light touch in all 4 extremities?? Significant Diagnostic Studies: Labs this admission: CBC: Recent Labs Lab Units 08/20/20 0403 08/19/20 1254 08/17/20 1455 08/16/20 0047 08/15/20 1505 WBC 10??3/uL 9.5 10.2 5.8 6.2 7.0 RBC 10??6/uL 4.85 4.79 4.67 4.16* 4.02* HGB g/dL 15.9 15.5 15.1 13.5 13.4* HCT % 45.6 46.2 44.3 39.6 38.8* BMP: Recent Labs Lab Units 08/20/20 0403 08/17/20 1455 08/16/20 0047 08/15/20 0810 NA mmol/L 141 145 141 142 CL mmol/L 103 107 107 107 CO2 mmol/L 26 26 24 25 BUN mg/dL 16 10 11 15 CREATININE mg/dL 1.0 1.0 0.7 0.8 CALCIUM mg/dL 9.3 8.8 8.8 8.9 Magnesium: No results for input(s): MG in the last 168 hours. Phosphorus: Recent Labs Lab Units 08/20/20 0403 PHOS mg/dL 3.2 Coagulation: No results for input(s): PT, INR, APTT in the last 168 hours. Endocrine: No results for input(s): TSH, A1C in the last 168 hours. LFTs: No results for input(s): AST, ALT, TBILI, DBILI, IBILI, ALB, GGT, TP in the last 168 hours. Invalid input(s): ALP Imaging: Xr Pelvis 1 Or 2vw Result Date: 08/15/2020 IMPRESSION: 1.No acute fracture or dislocation identified. 2.No radiopaque foreign body visualized.Dictated by Brandee Celestin MD (residential life director). Dr. CHARLES Thomason MD have personally reviewed and interpreted this examination/study. This report was electronically signed by CHARLES GARSIA MD on 08/15/2020 1:42 PM . Mri Brain Wo Contrast Result Date: 08/16/2020 IMPRESSION: 1.Motion limited study. Within this limitation, no acute intracranial abnormality. 2.Extensive cerebral, cerebellar and brainstem atrophy, significantly greater than expected for age. 3.Extensive atrophy of the right hippocampus, asymmetric as compared to the left. There is likely increased FLAIR signal in the residual right hippocampus. These findings are related to chronic seizures.This report was electronically signed by VIVIAN ORTIZ on 08/16/2020 1:10 PM . Us Retroperitoneal Complete Result Date: 08/20/2020 IMPRESSION: Within the limitations of the study, the kidneys appear grossly unremarkable. Dictated by Yonis Howard MD (residential life director). Dr. NAJMA Thomason have personally reviewed and interpreted this examination/study. This report was electronically signed by NAJMA BRITT on 08/20/2020 10:52 AM . Xr Abdomen Kub Portable Result Date: 08/15/2020 IMPRESSION: 1.Nonobstructive bowel gas pattern. 2.No radiopaque foreign body visualized. Dictated by Brandee Celestin MD (residential life director). Dr. CHARLES Thomason MD have personally reviewed and interpreted this examination/study. This report was electronically signed by CHARLES GARSIA MD on 08/15/2020 1:43 PM . Disposition: half-way Patient Instructions: Medication List START taking these medications cefpodoxime 100 MG tablet Commonly known as: Vantin Take 1 (one) tablet by mouth every 12 hours for 5 days Start taking on: August 22, 2020 multivitamin daily tablet Take 1 (one) tablet by mouth once daily Start taking on: August 22, 2020 CHANGE how you take these medications atorvastatin 40 MG tablet Commonly known as: Lipitor Take 1 (one) tablet by mouth at bedtime What changed: ?? medication strength ?? how much to take ?? how to take this ?? when to take this clonazePAM 2 MG tablet Commonly known as: KlonoPIN Take 1 (one) tablet by mouth 2 times daily What changed: ?? medication strength ?? how much to take ?? how to take this ?? when to take this ?? additional instructions divalproex DR 500 MG tablet Commonly known as: Depakote Take 2 (two) tablets by mouth 2 times daily What changed: ?? medication strength ?? how much to take ?? when to take this lacosamide 200 MG tablet Commonly known as: Vimpat Take 1 (one) tablet by mouth 2 times daily What changed: Another medication with the same name was removed. Continue taking this medication, and follow the directions you see here. levETIRAcetam 1000 MG tablet Commonly known as: Keppra Take 2 (two) tablets by mouth 2 times daily What changed: how much to take CONTINUE taking these medications acetaminophen 325 MG tablet Commonly known as: Tylenol amLODIPine 5 MG tablet Commonly known as: Norvasc Take 1 tablet by mouth once daily aspirin 81 MG chew tablet Commonly known as: Aspirin Take 1 tablet by mouth once daily B-12 1000 MCG Take 1 mg by mouth once daily folic acid 1 MG tablet Commonly known as: Folvite Take 1 tablet by mouth once daily ibuprofen 600 MG tablet Commonly known as: Motrin tamsulosin 0.4 MG capsule Commonly known as: Flomax thiamine 100 MG tablet Commonly known as: VITAMIN B-1 Take 1 tablet by mouth once daily Where to Get Your Medications Information about where to get these medications is not yet available Ask your nurse or doctor about these medications ?? atorvastatin 40 MG tablet ?? cefpodoxime 100 MG tablet ?? clonazePAM 2 MG tablet ?? divalproex DR 500 MG tablet ?? lacosamide 200 MG tablet ?? levETIRAcetam 1000 MG tablet ?? multivitamin daily tablet Discharge Instructions Dear Mr. Tabor and nursing staff, You were admitted for seizures. When you were admitted you were having multiple seizures per day. This was because you were not taking your seizure medications as initially prescribed. Because of this we have changed the dose of your medications, and you should continue to take these until you follow up with Dr. Raymundo on 09/17. While you were here you also developed a urinary tract infection. We have treated you with antibiotics. You will need to continue to take these antibiotics for the next 5 days to complete the course. DO not change any of your seizure medications and continue to take them as prescribed until you follow up with Dr. Raymundo Seizure Medication: - Klonopin 2 mg BID - Depakote 1g BID - Vimpat 200 mg BID - Keppra 2g BID Signed: Neli Collazo MD Neurology, PGY-2 documented in this encounter Discharge Instructions * Discharge Instructions* Neli Collazo MD - 08/21/2020 12:01 PM CDT Dear Mr. Tabor and nursing staff, You were admitted for seizures. When you were admitted you were having multiple seizures per day. This was because you were not taking your seizure medications as initially prescribed. Because of this we have changed the dose of your medications, and you should continue to take these until you follow up with Dr. Raymundo on 09/17. While you were here you also developed a urinary tract infection. We have treated you with antibiotics. You will need to continue to take these antibiotics for the next 5 days to complete the course. DO not change any of your seizure medications and continue to take them as prescribed until you follow up with Dr. Raymundo Seizure Medication: - Klonopin 2 mg BID - Depakote 1g BID - Vimpat 200 mg BID - Keppra 2g BID documented in this encounter Medications at Time [...] tablet by mouth at bedtime 08/21/2020 01/07/2022 cefpodoxime (VANTIN) 100 MG tablet Take 1 (one) tablet by mouth every 12 hours for 5 days 10 tablet 08/22/2020 08/27/2020 clonazePAM (KLONOPIN) 2 MG tablet Take 1 (one) tablet by mouth 2 times daily 08/21/2020 09/01/2021 Cyanocobalamin (B-12) 1000 MCGIndications:Vitamin B12 deficiency Take 1 mg by mouth once daily 30 capsule 11 10/26/2018 03/12/[address] (DEPAKOTE) 500 MG tablet Take 2 (two) tablets by mouth 2 times daily 08/21/2020 03/12/2021 folic acid (FOLVITE) 1 MG tabletIndications:Folat [...] for 30 days 180 tablet 06/10/2018 01/14/2023 multivitamin daily tablet Take 1 (one) tablet by mouth once daily 08/22/2020 12/21/2021 tamsulosin (FLOMAX) 0.4 MG capsule 0.4 mg once daily 12/12/2018 01/07/2022 thiamine (VITAMIN B-1) 100 MG tabletIndications:Lucia ine deficiency Take 1 tablet by mouth once daily 30 tablet 11 10/26/2018 03/12/2021 documented as of this encounter Progress Notes * Sean Hughes RN - 08/21/2020 8:13 PM CDT Report given to EMS. Patient released into care of EMS and transported via stretcher. * Angelina Yi RN - 08/21/2020 3:27 PM CDT Phone report called to [facility], spoke with SANDY Echols. Awaiting EMS for transport * Marcella Calderon SLP - 08/21/2020 1:40 PM CDT [facility] Swallow Treatment Patient: Mojgan Tabor [facility] Record Number: [id number] Date of : 1960 Age: [age] year old PPE: PPE donned by [employer] during this session - N95 mask, eye protection and gloves. Impressions: Limited assessment of swallow function this date given Pt's AMS and inability to fullyparticipate during PO trials. Recommend Pt continue his current Pureed (4)/Dys 1 diet with Mildly Thick (2)/[place] thickened liquids. [employer] [facility] will plan to follow up for ongoing assessment of diet tolerance. Swallow Recommendations: Liquids: Mildly Thick (2)/[place] Diet: Pureed (4)/Dys 1 Swallowing guidelines: Sit at 90 degrees Small, controlled amounts at slow rate Supervision and/or assistance at meals No straw Medication crushed in puree Pt should only eat/drink when awake and alert Discharge Recommendations: Patient will benefit from inpatient multidisciplinary therapies Speech therapy is recommended to improve swallow function. Subjective: Mental Status: Lethargic, mumbling incoherently during visit Pain: Patient did not respond when asked about pain Objective: Breathing Status: Room air Tracheostomy Tube: N/A Trial Swallows: [place] thick liquids via tsp and cup Oral Phase: Anterior spillage noted given Pt unable to hold boluses within his oral cavity Pharyngeal Phase: Unable to assess given boluses did not reach the pharyngeal phase of the swallow Signs of Aspiration: No overt signs and symptoms of aspiration/penetration but boluses did not reach the pharyngeal phase of the swallow during today's visit Modifications: Thickened liquids [place] Assessment: Swallow: Severe oral dysphagia this date, will continue to follow Behavioral: Lethargic Education: Patient instructed in recommedations and indicated understanding. Goals: Short Term Goals: Patient to demonstrate no clinical signs/symptoms of aspiration or difficulty swallowing with recommended diet. Nursing Home Goal(s): Patient to be independent/baseline with speech/language/cognitive/swallowing to be able to safely discharge to prior level of care. If patient is discharged from the facility, this note serves as a discharge note if further speech therapy visits did not occur. Marcella Scherer M.S., [facility] Speech Language Pathologist [phone] * Angelina Gould MSW - 08/21/2020 1:30 PM CDT Facility Transfer Note Level of Care: Actual level of care at discharge: [facility] - Medicaid Facility Name: (include name of person confirming admission): Actual discharge provider: [facility] Made Aware of Special Needs (if applicable): yes RN Call Report to:[phone] Fax D/C Orders to: [phone] Transportation (company and number): [employer] [phone] Certificate of Medical Necessity rationale: seizures Date/time of transfer: 08/21/20 1500 Accepting MD and contact #: Dr. Bradley Completed and Signed [id number] (if applicable): n/a Family/Other Notified of Transfer (name/phone): Facility notified of return Authorization Skilled Care: Authorization for Transportation: Verified Qualifying Stay(Skilled Only): NOT APPLICABLE Comments: Return to SNF via ambulance CLARITA Ochoa * David Nielson, INVESTIGATOR WELFARE - 08/21/2020 11:35 AM CDT [facility] Physical Medicine and Rehabilitation PhysicalTherapy Progress Note Patient: Mojgan Tabor [facility] Record Number: [id number] Date of : 1960 Age: [age] year old Face Mask: yes and protective glasses - pt. On EEG potline monitor: no Discharge Recommendation: Patient will benefit from multidisciplinary inpatient therapies. Mental Status: difficult to keep awake; did not follow commands At start of therapy session, patient found in bed. Pain: no indication Weight Bearing Status: WBAT Mobility: did not awaken to participate Rolling: not tested Supine to Sit:not tested Sit to Supine: not tested Sit to Stand:not tested Bed to Chair: not tested Gait: nt Balance: Static Sitting: not tested Dynamic sitting: not tested Static Standing: not tested Dynamic Standing: not tested Stairs : nt Patient's activity tolerance: fair Treatment/therapeutic Exercise: prom bilat ue/le EDUCATION: While performing PT, Patient was instructed in:Home exercise program and as able Patient demonstrated Questionable understanding of instructions given. GOALS: Short Term Goals: Goal Formation?With patient Patient will perform bed mobility:??Minimal assist Patient will transfer sit to/from stand:??Minimal assist Patient will??maintain good static sitting balance. Nursing Home Goal: Patient to discharge to appropriate next level of inpatient care. Update Treatment Plan: cont. POC If patient is discharged from the facility, this note serves as a discharge note if further physical therapy visits did not occur. Following therapy session, patient left in bed and on EEG monitor. * Walt Gomez - 08/21/2020 7:50 AM CDT Neurology Progress Note Patient: Mojgan Tabor Room: 514 Age: [age] year old Subjective: Mojgan Tabor is a 60 year old male with a history of post-stroke epilepsy, HTN, and prior alcohol abuse who presented on 08/13 with breakthrough seizures secondary to subtherapeutic anti-epileptic therapy (noncompliance). Since his seizure onset in 2009, he has had recurrent seizure breakthroughs and status epilepticus episodes from medication noncompliance. He was initially just on Keppra 1500BID but now was requiring Keppra 2000 BID, Depalote 750BID and Vimpat 200BID. However, his nursing facility was only giving him Keppra 2000BID, Depakote 250BID, Vimpat 100BID leading to seizures every other day over the last month. He has right-sided onset focal seizures; he has right paraesthesia foll owed by secondary generalizations including dyscognitive events, convulsions, and tongue bites withpost-ictal confusion. ?? While admitted, he has had many seizures on vEEG while restarting his home regimen. He required a few prn doses of ativan. His Depakote was loaded with 1500mg due to a level of 13 then was been increased to 1000BID. Klonopin 2mg BID was added. This regimen has dramatically reduced seizure frequency. Overnight: NAOE. Sleeping comfortably this morning without any acute complaints. No obvious seizure activity. Objective: BP 159/101 Pulse 108 Temp 99 ??F (37.2 ??C) (Axillary) Resp 18 Ht 5' 11 (1.803 m) Wt 149 lb (67.6 kg) SpO2 98% BMI 20.78 kg/m2 Temp (30hrs) Max:101.7 ??F (38.7 ??C) Body mass index is 20.78 kg/m??. Exam: General: Heent - NCAT, MMM, anicteric Neck - No JVD, LAD, trachea midline CV - RRR for age, normal s1/s2, no m/r/g Pulm - CTAB, no w/r/r Abd - BS+, soft, NTND Ext: No c/c/e, normal ROM ?? Cortical Function Mental Status He follows simple commands. He is lethargic with occasional inattention, but redirectable. Left gaze preference. Orientation Person, place, time, and situation Language Fluency intact, comprehension intact, repetition intact Visual Ivan Diminished bilateral temporal vian Neglect Left hemineglect ?? Cranial Nerves II Pupils 4 mm [...] Bulk No abnormalities noted Tone Increased tone in left upper and lower ? Proximal Upper Distal Upper Proximal Lower Distal Lower Right 5/5 5/5 5/5 5/5 Left 4/5 4/5 4/5 4/5 ?? Muscle Stretch Reflexes ?? BI TRI BR PAT ACH TOES Right 2 2 2 2 2 Down Left 3 3 3 4 3 Up ?? Sensory Light Touch Symmetric and intact bilaterally Noxious Stimuli Not tested Temperature Not tested Pallesthesia Not tested ?? Cerebellar ?? FNF Right Intact Left Intact Gait Deferred Labs: No new results; pending blood/urine cultures Assessment and Plan: Mojgan Tabor??is a 60 year old??male??with a history of post-stroke epilepsy, HTN, and prior alcohol??use disorder (sober since 2016) who??presented on 08/13 with breakthrough seizures secondary to subtherapeutic anti-epileptic therapy (noncompliance).??He has recurrent issues with breakthrough seizures secondary to noncompliance. Now having improved seizure control on current regimen; seizure frequency improved from >100 at the beginning of his stay (last noted seizure at 05:32 AM on 08/18/2020). Family was contacted to stress importance of not adjusting AED dosing, apparently the previousreduction in AEDs was driven by the CREDIT PROCESSOR at his care facility. They are aware of the importance of AEDs. ?? U/A suggestive of a UTI, culture pending. Last fever to 101.7 on 08/20. CXR negative for aspiration. Last reported UTI was 04/2019. Patient's risk factors for recurrent UTI include straight cath, hygiene (possible urinary incontinence with seizures) and possible retrograde ejaculation (sperm in hisU/A). U/S was negative for obstructive/structural etiology. Summary: Plan for discharge today given three days of seizure free activity and adequate coverage of UTI. Will switch to oral third gen. Cephalosporin for d/c. #UTI - ceftriaxone 2g qd day 2/3; pending culture sensitivities - blood cultures pending - maintain good hygiene - consider urology consult if recurrent UTI ?? #Post-Stroke Epilepsy #Breakthrough seizures - Continue with home AED medications: 2g Keppra BID, 200 mg BID Vimpat - Continue with increased Depakote dose:??1g BID - Continue with new AED:??clonazepam 2mg BID - Continue vEEG - Fall/seizure precautions ?? #dysphagia - following speech recommendations for pureed diet and thickened liquids ?? #HTN - Continue home amlodipine 5 mg daily ?? #Hx of CVA - Continue with home aspirin, Lipitor for secondary stroke prevention ?? #Thrombocytopenia??(stable) - Possibly secondary to Depakote??vs less likely HIIT ?? #Alcohol??Use Disorder - Continue with thiamine, folate, multivitamin? Inpatient Checklist: Lines: PIV Prophylaxis: Lovenox 40g Diet: regular Activity: Activity as tolerated Code status: Full Code Disposition: Inpatient monitoring Discussed Assessment and Plan with Attending Physician, Dr. Rommel Gomez MS3 Neurology * Sean Hughes RN - 08/20/2020 8:05 PM CDT Monitor pain labs vitals safety * Michelle Randle OT - 08/20/2020 2:36 PM CDT [facility] Physical Medicine and Rehabilitation Occupational Therapy Progress Note Patient: Mojgan Tabor [facility] Record Number: [id number] Date of : 1960 Age: [age] year old Face Mask: Therapist wore procedural mask, gloves and eye protection during entire treatment session. Discharge Recommendation: Patient will benefit from multidisciplinary inpatient therapies. Precautions: Seizure Subjective: Basketball. At start of therapy session, patient found in bed and with bed alarm on. Pain: Patient has 0 out of 10 pain. Activities of Daily Living Feeding: NT Grooming/Bathing: Minimal assist facial hygiene supine in bed using R UE- moderate verbal/tactile cues for initiation and cessation of task Upper Extremity Dressing: not tested Lower Extremity Dressing: not tested Toileting/Transfers: not tested Mobility: Assist device: none Rolling: Maximal assist Supine to/from Sit:not tested Sit to/from Stand: not tested Bed to/from Chair: not tested Functional Mobility: not tested Splint Issued/Checked: none Splint Check Completed: N/A Balance: Static Sitting: not tested Dynamic Sitting: not tested Static Standing: not tested Dynamic Standing: not tested Vitals: Rest BP: 137/90 HR: 122 SpO2 SpO2 Room Air L 02 Ex/Gait/Activity Without 02 BP: HR: SpO2 Room Air Ex/Gait/Activity With 02 BP: HR: SpO2 L 02 Post Activity BP: HR: SpO2 SpO2 L 02 Room Air Observations: NAD Activity tolerance: poor plus Cognitive/Perceptual: Alert and oriented x self and only. Delayed processing. Follows 1 step commands 25% of the time with maximal verbal/tactile cues. Poor safety awareness/insight. Patient withL neglect, unable to visually track therapist. Treatment/Therapeutic Exercise: Treatment session this date focused on ADL training Cognitive retraining EDUCATION: While performing self care, Patient was instructed in: Self care training Patient not appropriate for education at this time secondary to mental status. Equipment Issued: none Update Treatment Plan/Goals : Pt continues to benefit from skilled OT to improve independence with activities of daily living, increase strength, endurance, range of motion and decrease pain. Continue goals per POC. Short Term Goals: Cognition: 1 step commands and 100% of the time Patient will perform grooming At edge of bed and With min assist Patient will perform supine to sit With mod assist and X 2 Patient will tolerate AROM Bilateral UE, 1 set and 10 reps ?? Nursing Home Goal:Patient to discharge to appropriate next level of inpatient care If patient is discharged from the facility, this note serves as a discharge note if further occupational therapy visits did not occur. Following therapy session, patient left in bed and with bed alarm on. * Neli Collazo MD - 08/20/2020 2:22 PM CDT Family Notification Documentation Contact made: 08/20/2020 2:22 PM Person(s) contacted: Adriane Hilliard Method of communication: Phone Phone number: [phone] Duration of discussion: 5 minutes Summary of discussion Updated about clinical status and UTI, including treatment plan and probable d/c tomorrow * Dina Thomas SLP - 08/20/2020 11:45 AM CDT [facility] Swallow Treatment Patient: Mojgan Tabor [facility] Record Number: [id number] Date of : 1960 Age: [age] year old PPE: N95, goggles, gloves Impressions: Pt continues to present with moderate oral phase dysphagia, as evidenced by prolonged bolus hold and delayed onset oral transit, as well as anterior leakage of the bolus. No overt s/s aspiration were noted for this assessment. ELECTRICIAN YARD will continue to assess pt's diet and advance as his mental status and overall swallow function improves. Swallow Recommendations Liquids: [place]/Mildly Thick (2) Diet: Purees (4)/DYS 1 Swallowing guidelines: Sit at 90 degrees Small, controlled amounts at slow rate No straws Alternate liquids and food items frequently (1:1 ratio) Medication crushed in puree Alternate food and liquids frequently 100% supervision and/or assistance at meals Do not feed Pt if he is not awake/alert and able to safely participate in oral intake Recommended tests/consults: Deferred at this time Discharge Recommendations: Patient will benefit from multidisciplinary inpatient therapies. Speech therapy is recommended to improve swallow function. Subjective: Mental Status: Alert and responsive, verbalized only yes/no responses Pain: Patient has 0/10 pain Objective: Breathing Status: Room air Tracheostomy Tube: N/A Positioning: Upright in bed Trial Swallows: [place] thick liquids and Pureed Oral Phase: Prolonged oral transit time/mastication, Oral residue after the swallow and Impaired lip closure/Spillage from oral cavity. The bolus often remained in the oral cavity for periods of up to 30 seconds or more. He was also unable to form an adequate labial seal w/ a straw and required allpresentations via spoon. Pressure on the tongue dorsum was often successful at helping the pt trigger a pharyngeal swallow. Pharyngeal Phase: Strong laryngeal elevation, possible premature spillage of the bolus Signs of Aspiration: No overt signs and symptoms of aspiration/penetration Assessment: Swallow: Dysphagia: Oral: Moderate Behavioral: Alert, Cooperative Education: Patient instructed in recommedations and indicated understanding. Goals: Short Term Goals Patient to demonstrate no clinical signs/symptoms of aspiration or difficulty swallowing with recommended diet. Patient to demonstrate gains in swallow function as demonstrated by the ability to tolerate diet upgrade. Nursing Home Goals: Patient to discharge to appropriate next level of inpatient care. If patient is discharged from the facility, this note serves as a discharge note if further speech therapy visits did not occur. 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 On arrival had 3 seizures, each lasting 1 minute, meagan cribed as GTCs per EMS. He was admitted to neurology and started on cEEG.??His home AED medicationswere resumed (2g Keppra BID, [address] BID, and 200 mg Vimpat BID), and he was started on klonopin 1 mg TID. He continued to have multiple electrographic right hemisphere seizures, and was loaded with 1.5 g Depakote due to low level (13). Brain MRI was done which showed no acute intracranial pathology. Klonopin was increased to 2 mg BID due to continuing seizures.? Interval History: No additional seizure activity on EEG. This morning more drowsy, had additional fever. Objective Patient Vitals for the past 24 hrs: BP Temp Temp src Pulse Resp SpO2 08/20/20 0355 129/89 98 ??F (36.7 ??C) Axillary 100 18 98 % 08/20/20 0025 135/88 98.1 ??F (36.7 ??C) Axillary (!) 110 18 96 % 08/19/20 1955 147/98 98.1 ??F (36.7 ??C) Axillary (!) 112 18 96 % 08/19/20 1543 125/77 98.1 ??F (36.7 ??C) -- 88 18 94 % 08/19/20 1145 88/69 99.8 ??F (37.7 ??C) -- 92 18 96 % Intake/Output Summary (Last 24 hours) at 08/20/2020 0823 Last data filed at 08/20/2020 0544 Gross per 24 hour Intake 480 ml Output 230 ml Net 250 ml Exam: Cortical Function Mental Status Awake, alert, follows commands Orientation Person, place, time, and situation Language Fluency intact, comprehension intact, repetition intact Visual Ivan Intact bilaterally to confrontation?? Neglect Some left sided hemineglect? Cranial Nerves II Pupils??4??mm and bilaterally reactive to light. Fundoscopic exam not performed. VIII Hearing isintact bilaterally to finger rub. III/IV/ Left gaze preference, but crosses eyes midline. No diplopia, ptosis, nystagmus or convergence abnormalities noted. IX/X Palate elevated symmetrically without phonation abnormalities noted. V Facial sensation symmetric to light touch and intact bilaterally. Corneal reflex not examined. XIHead turning and shoulder shrug are intact. VII Left facial droop?? XII Tongue is midline with normal movements and no atrophy noted. ?? Motor Function Movement No abnormalities noted Bulk No abnormalities noted Tone Increased in LUE/LLE Moves all extremities spontaneously and antigravity, does not cooperate with formal strength assessment. Withdraws in all 4 extremities Muscle Stretch Reflexes ?? BI TRI BR PAT ACH TOES Right 2 2 2 2 2 Down Left 3 3 3 3 3 Up ?? Sensory Intact to light touch in all 4 extremities? Assessment/Plan Mojgan Tabor??is a 60 year old??male with a history of post-stroke epilepsy presenting with multiple breakthrough seizures in the setting of subtherapeutic AED regime. After restarting home medication doses he continued to have multiple clinical and subclinical focal seizures with return to back tobaseline. Seizure burden improved with increasing AED medications. ?? #Focal Seizures #Post-Stroke Epilepsy - Continue with home AED medications: 2g Keppra BID, 200 mg BID Vimpat - Continue with increased Depakote dose, 1g BID and clonazepam 2mg BID - Continue with video EEG monitoring for subclinical seizures ?? #HTN - Continue home amlodipine 5 mg daily ?? #Urinary Tract Infection - Urine culture, blood culture pending - Ceftriaxone 2g x3 days - Retroperitoneal ultrasound ordered to evaluate for stones, recurrent UTIs ?? #Right Parietal Stroke - Continue with home aspirin, Lipitor for secondary stroke prevention ?? #Thrombocytopenia - Possibly secondary to Depakote - Continue to monitor - HIT panel negative ?? #Alcohol Abuse - Continue with thiamine, folate, multivitamin ?? Diet: Regular DVT ppx: Lovenox Dispo: PT/OT pending?? Neli Collazo MD PGY-2, Neurology I have seen and examined the patient with the resident and I agree with the findings and plan of care as documented by the resident. Date of Service:??08/20/2020 ?? History??60-year-old -[place] male with previous right parietal stroke and post stroke seizures and frequent admissions for noncompliance.?? Apparently his family have been telling the detention to reduce his AEDs. Admitted again with concerns of seizures. He has recovered back to baseline and has received Keppra and Vimpat and Depakote. A seizure was on 08/18/2020 at 5 AM he has been seizure free since then. He is more obtunded today. Examination.??Awake but drowsy. Left hemiparesis previous stroke. UA shows UTI with E. coli. He's had UTI before. Diagnosis.??Post stroke epileptic seizures.??Noncompliance. UTI. Plan??. Will investigate by ultrasound for any anatomy causes for UTI in the kidney, bladder, prostate. We will start tracks onto gram q.24 . We will continue the present dose of Keppra 2 g p.o. b.i.d. and Vimpat 200 mg p.o. b.i.d.,??Depakote 1 g b.i.d. Will discharge home as soon as he is stable. Will need supervised medication need to educate his family not to reduce his AEDs. ?? Please see resident notes for details ?? Crescencio Carney MD Attending Physician, Neurology * Patricia Walt - 08/20/2020 7:28 AM CDT Neurology Progress Note Patient: Mojgan Tabor Room: 514 Age: [age] year old Subjective: Mojgan Tabor is a 60 year old male with a history of post-stroke epilepsy, HTN, and prior alcohol abuse who presented on 08/13 with breakthrough seizures secondary to subtherapeutic anti-epileptic therapy (noncompliance). Since his seizure onset in 2009, he has had recurrent seizure breakthroughs and status epilepticus episodes from medication noncompliance. He was initially just on Keppra 1500BID but now was requiring Keppra 2000 BID, Depalote 750BID and Vimpat 200BID. However, his nursing facility was only giving him Keppra 2000BID, Depakote 250BID, Vimpat 100BID leading to seizures every other day over the last month. He has right-sided onset focal seizures; he has right paraesthesia foll owed by secondary generalizations including dyscognitive events, convulsions, and tongue bites withpost-ictal confusion. ?? While admitted, he has had many seizures on vEEG while restarting his home regimen. He required a few prn doses of ativan. His Depakote was loaded with 1500mg due to a level of 13 then was been increased to 1000BID. Klonopin 2mg BID was added. This regimen has dramatically reduced seizure frequency. Overnight: NAOE. Patient was less responsive to questions this morning, but had no complaints. Patient denied dysuria, urgency or frequency. Patient did not report incontinence with his seizures. Patient did spike another fever later in the morning Objective: BP 140/92 Pulse 73 Temp 101.7 ??F (38.7 ??C) (Axillary) Resp 18 Ht 5' 11 (1.803 m) Wt 149 lb (67.6kg) SpO2 96% BMI 20.78 kg/m2 Temp (30hrs) Max:101.7 ??F (38.7 ??C) Body mass index is 20.78 kg/m??. Exam: General: Heent - NCAT, MMM, anicteric Neck - No JVD, LAD, trachea midline CV - RRR for age, normal s1/s2, no m/r/g Pulm - CTAB, no w/r/r Abd - BS+, soft, NTND Ext: No c/c/e, 2+ dpp, normal ROM Cortical Function Mental Status He follows simple commands. He is lethargic with occasional inattention, but redirectable. Left gaze preference. Orientation Person, place, time, and situation Language Fluency intact, comprehension intact, repetition intact Visual Ivan Diminished bilateral temporal ivan Neglect Left hemineglect ?? Cranial Nerves II Pupils 4 mm [...] Bulk No abnormalities noted Tone Increased tone in left upper and lower ? Proximal Upper Distal Upper Proximal Lower Distal Lower Right 5/5 5/5 5/5 5/5 Left 4/5 4/5 4/5 4/5 ?? Muscle Stretch Reflexes ?? BI TRI BR PAT ACH TOES Right 2 2 2 2 2 Down Left 3 3 3 4 3 Up ?? Sensory Light Touch Symmetric and intact bilaterally Noxious Stimuli Not tested Temperature Not tested Pallesthesia Not tested ?? Cerebellar ?? FNF Right Intact Left Intact Gait Deferred Labs: Recent Results (from the past 24 hour(s)) CBC W AUTO DIFFERENTIAL Collection Time: 08/19/20 12:54 PM Result Value Ref Range WBC 10.2 3.5 - 10.5 10??3/uL RBC 4.79 4.30 - 5.70 10??6/uL Hemoglobin 15.5 13.5 - 17.5 g/dL Hematocrit 46.2 39.0 - 50.0 % MCV 96.5 81.0 - 97.0 fL MCH 32.4 28.0 - 34.0 pg MCHC 33.5 32.0 - 36.0 g/dL Platelet Count 86 (L) 150 - 400 10??3/uL RDW-SD 41.2 36.0 - 50.0 fL RDW-CV 11.7 11.2 - 14.8 % MPV 12.3 9.3 - 12.8 fL nRBC Absolute 0.00 0 10??3/uL nRBC Auto 0.0 0 /100 WBC Neutrophils % 72.1 (H) 35.0 - 70.0 % Lymphocytes % 12.2 (L) 19.7 - 55.1 % Monocytes % 14.5 3.0 - 15.0 % Eosinophils % 0.4 0.0 - 6.0 % Basophil % 0.3 0.0 - 1.5 % Neutrophils Absolute 7.4 (H) 1.6 - 7.0 10??3/uL Lymphocyte Absolute 1.3 0.8 - 2.9 10??3/uL Monocytes Absolute 1.48 (H) 0.14 - 0.66 10??3/uL Eosinophils Absolute 0.04 0.00 - 0.45 10??3/uL Basophils Absolute 0.03 0.00 - 0.06 10??3/uL Immature Granulocytes % 0.5 0.0 - 1.0 % URINALYSIS REFLEX TO MICROSCOPIC NO CULTURE Collection Time: 08/19/20 5:42 PM Specimen: Urine Clean Catch Result Value Ref Range Color UA Olivia (Abnormal) Straw, Yellow, Colorless Clarity UA Slt Cloudy Clear, Slt Cloudy Specific Girard UA 1.030 1.005 - 1.030 pH UA 5.0 5.0 - 8.0 pH Protein UA 1+ (Abnormal) Negative mg/dL Glucose UA Negative Negative mg/dL Ketone UA Trace (Abnormal) Negative mg/dL Bilirubin UA Negative Negative mg/dL Blood UA Negative Negative Nitrite UA Negative Negative Leukocyte Esterase 1+ (Abnormal) Negative Urobilinogen UA 4.0 (Abnormal) Negative mg/dL RBC UA 3-5 None Seen, 0-2, 3-5 /HPF WBC UA 11-20 (Abnormal) None Seen, 0-5 /HPF Bacteria UA 1+ (Abnormal) None, Trace /HPF Sperm UA Present (Abnormal) Absent /HPF Squamous Epithelial Cells UA 0-2 None Seen, 0-2 /HPF Mucus UA 3+ (Abnormal) None, 1+ /LPF Hyaline Casts UA 0-2 None Seen, 0-2 /LPF CBC W/O DIFFERENTIAL Collection Time: 08/20/20 4:03 AM Result Value Ref Range WBC 9.5 3.5 - 10.5 10??3/uL RBC 4.85 4.30 - 5.70 10??6/uL Hemoglobin 15.9 13.5 - 17.5 g/dL Hematocrit 45.6 39.0 - 50.0 % MCV 94.0 81.0 - 97.0 fL MCH 32.8 28.0 - 34.0 pg MCHC 34.9 32.0 - 36.0 g/dL Platelet Count 121 (L) 150 - 400 10??3/uL RDW-SD 40.6 36.0 - 50.0 fL RDW-CV 11.8 11.2 - 14.8 % MPV 12.4 9.3 - 12.8 fL nRBC Absolute 0.00 0 10??3/uL nRBC Auto 0.0 0 /100 WBC MAGNESIUM BLOOD Collection Time: 08/20/20 4:03 AM Result Value Ref Range Magnesium 1.9 1.6 - 2.6 mg/dL PHOSPHORUS BLOOD Collection Time: 08/20/20 4:03 AM Result Value Ref Range Phosphorus 3.2 2.3 - 4.7 mg/dL BASIC METABOLIC PANEL (CALCIUM TOTAL) Collection Time: 08/20/20 4:03 AM Result Value Ref Range BUN 16 7 - 26 mg/dL Creatinine 1.0 0.6 - 1.2 mg/dL Sodium 141 136 - 145 mmol/L Potassium 4.3 3.5 - 4.5 mmol/L Chloride 103 98 - 107 mmol/L CO2 26 22 - 29 mmol/L Glucose 116 (H) 70 - 115 mg/dL Calcium 9.3 8.4 - 10.2 mg/dL Anion Gap 16 8 - 18 BUN/Creatinine Ratio 16 7 - 23 Osmolality Calculated 294 270 - 300 mOsm/kg eGFR >60 >60 mL/min/1.73 m2 Assessment and Plan: Mojgan Tabor is a 60 year old male with a history of post-stroke epilepsy, HTN, and prior alcohol use disorder (sober since 2016) who presented on 08/13 with breakthrough seizures secondary to subtherapeutic anti-epileptic therapy (noncompliance). He has recurrent issues with breakthrough seizures secondary to noncompliance. Now having improved seizure control. Current lethargy is probably a combination of AED regimen and underlying infection. Seizure frequency improved from >100 at the beginning of his stay. His current regimen seems to providing good control. Family was contacted to stress importance of not adjusting AED dosing. Fever work-up showed an increased WBC count to 10.5 and U/A suggestive of a UTI. CXR negative for aspiration. Last reported UTI was 04/2019. Patient's risk factors for recurrent UTI include straight cath, hygiene (possible urinary incontinence with seizures) and possible retrograde ejaculation (sperm in his U/A). Underlying structural etiology is possible and should be investigated. #UTI - ceftriaxone 2g qd for 3 doses; pending culture sensitivities - b/l renal and bladder u/s - blood cultures given second spike of fever - maintain good hygiene - consider urology consult if recurrent UTI ?? #Post-Stroke Epilepsy #Breakthrough seizures - Continue with home AED medications: 2g Keppra BID, 200 mg BID Vimpat - Continue with increased Depakote dose: 1g BID - Continue with new AED: clonazepam 2mg BID - Continue vEEG - Fall/seizure precautions ?? #dysphagia - following speech recommendations for pureed diet and thickened liquids #HTN - Continue home amlodipine 5 mg daily ?? #Hx of CVA - Continue with home aspirin, Lipitor for secondary stroke prevention ?? #Thrombocytopenia (stable) - Possibly secondary to Depakote vs less likely HIIT ?? #Alcohol Use Disorder - Continue with thiamine, folate, multivitamin ?? Inpatient Checklist: Lines: PIV Prophylaxis: Lovenox 40g Diet: regular Activity: Activity as tolerated Code status: Full Code Disposition: Inpatient monitoring Discussed Assessment and Plan with Attending Physician, Dr. Rommel Gomez MS# Neurology * Grace Norris RN - 08/19/2020 10:16 PM CDT Problem: Fall Risk Goal: Fall risk and fall related injury risk are minimized (interventions related to the fall risk can be found in the flowsheet documentation) Outcome: Progressing Problem: Seizures Goal: Seizures are under control or absent Outcome: Progressing Problem: SEIZURE EVENT MONITORING Goal: To record an episode to determine whether or not the episode is a seizure. Outcome: Progressing Problem: Balance Goal: STG - Maintains static sitting balance with upper extremity support. Outcome: Progressing Problem: Aspiration Precautions Goal: Patient's risk of aspiration is minimized Outcome: Progressing Problem: Pain/Discomfort Goal: Patient exhibits reduced pain/discomfort as evidenced by pain scores Outcome: Progressing Goal: Patient uses pharmacological and non-pharmacological pain management strategies. Outcome: Progressing Goal: Patient verbalizes acceptable level of pain relief and ability to engage in desired activity. Outcome: Progressing Problem: Knowledge Deficit Goal: Patient/significant other demonstrates understanding of disease process, treatment plan, medications, and discharge instructions. Outcome: Progressing Problem: Skin Integrity Goal: Skin integrity is maintained or improved Outcome: Progressing * Dionne Lutz PT - 08/19/2020 4:06 PM CDT [facility] Physical Medicine and Rehabilitation PhysicalTherapy Progress Note Patient: Mojgan Tabor Med Record Number: [id number] Date of : 1960 Age: [age] year old Face Mask: PT and tech wore procedural masks during session. Tech: Maribell Discharge Recommendation: Patient will benefit from multidisciplinary inpatient therapies. Subjective: Sharona. Mental Status: alert and oriented to name; no visual tracking or locating unless in direct line of sight; no command follow noted; answers ya to all questions this session At start of therapy session, patient found in bed. Pain: No pain reported/identified during session. Weight Bearing Status: BLE WBAT Mobility: Supine to Sit:Maximal assist of 2 Sit to Supine: Maximal assist of 2 Gait: N/a; poor static sitting balance; no command follow Balance: Static Sitting: poor; retropulsive Dynamic sitting: poor Vitals: (*Assess the 3 levels of oxygen saturations both for room air and 02 unless rest on room air is 88% or less). Rest BP: HR: Sp02 Sp02 96% Room Air L O2 RA Ex/Gait/Activity Without 02 BP: HR: Sp02 Room Air Ex/Gait/Activity With 02 BP: HR: Sp02 L O2 Post Activity BP: HR: Sp02 Sp02 L O2 Room Air Observations: Pt on RA. No signs or symptoms of distress with activity/positional change Activity Tolerance: Patient's activity tolerance: poor Treatment/therapeutic Exercise: supine<>sit; seated balance and positional change; seated BLEPROM; cognitive stimulation EDUCATION: While performing PT, Patient was instructed in:Functional mobility training/weight bearing status, Safety awareness/fall precaution and Home exercise program Patient demonstrated Poor understanding of instructions given. GOALS: Goal Formation With patient Patient will perform bed mobility: Minimal assist Patient will transfer sit to/from stand: Minimal assist Patient will maintain good static sitting balance. ?? Nursing Home Goal(s): Patient to discharge to appropriate next level of inpatient care Update Treatment Plan: Continue with current PT plan of care to improve safety and increase functional mobility. If patient is discharged from the facility, this note serves as a discharge note if further physical therapy visits did not occur. Following therapy session, patient left in bed, with bed alarm on and with call light within reach. * Trista Sandoval, MINH/ONIN - 08/19/2020 1:46 PM CDT Initial Nutrition Assessment Nutrition Recommendations: Pureed diet with [place] Thick liquids per ELECTRICIAN YARD Offer assistance with meals as needed to optimize intakes: tray set up, opening items, verbal cues,etc. +Ensure Enlive (1.5 Bruno) (350 kcals, 20 g Pro, 44 g carbohydrate) BID Comments: Pt screened for LOS. Varied/fair intakes noted since admission. RN ordered ELECTRICIAN YARD eval this am as she noticed Pt pocketing food and having trouble swallowing. ELECTRICIAN YARD recommends Pureed diet with [place] Thick liquids. Will initiate supplement to enhance/encourage intakes. BM 08/18. Abrasions noted. Will continue to follow Pt and plan of care through admission. Assessment: Med/Surg History and Clinical Diagnoses: seizure; PMH: HTN, CVA Height: 5' 11 (180.3 cm) Weight: 149 lb (67.6 kg)(stated) BMI: Body mass index is 20.78 kg/m??. BMI Range: Normal IBW/lb (Calculated) Male: 89 , Wt Comments: Wt up per EMR Diet order accuracy Current diet order: Pureed (4) (DYS 1);Mildly Thick (2)/[place] Current supplement order: +enlive BID Nutrition recommendation: agree with current nutrition order PO Intake for the past 48 hrs: % Meal Taken Av % Min: 10 % Max: 100 % Food Allergies: No known food allergies GI Concerns: None Chewing/Swallowing: Dysphagia Pain affecting intake: No Estimated Needs: KCAL: 2040 (30 kcal/kg ABW) Protein (g): 68-82 (1-1.2gm/kg ABW) Fluid (ml): 1 ml/kcal Needs based on: Kcal/kg- (Comment) Pertinent Nutrition Labs: reviewed Current Facility-Administered Medications Medication ??? 0.9% NaCl injection 3 mL And ??? 0.9% NaCl injection 1-10 mL ??? acetaminophen (TYLENOL) tablet 500 mg ??? amLODIPine (NORVASC) tablet 5 mg ??? aspirin chew tablet 81 mg ??? atorvastatin (LIPITOR) tablet 40 mg ??? clonazePAM (KlonoPIN) tablet 2 mg ??? divalproex DR (DEPAKOTE) tablet 1,000 mg ??? enoxaparin (LOVENOX) injection 40 mg ??? folic acid (FOLVITE) tablet 1 mg ??? lacosamide (VIMPAT) tablet 200 mg ??? levETIRAcetam (KEPPRA) tablet 2,000 mg ??? multivitamin daily tablet 1 tablet ??? thiamine (Vitamin B-1) tablet 100 mg Skin/Wound: abrasions Education needed: None Nutrition Care Process (1) Nutrition Diagnostic Statement: Swallowing difficulty related to:: neurological or muscular disorders as evidenced by:: pocketing food;---(need for modified diet) Nutrition Diagnostic Statement Progress: New diagnostic statement established Nutrition Intervention: Meals and snacks:;Medical Food Supplements: Monitoring: Meal and supplement intakes, lab values, Wt, skin, BMs Evaluation: Nutrition Goal: Total intake will meet estimated nutrient needs Nutrition Goal Timeframe: Throughout stay Nutrition Goal Progress: New goal established Trista Borden MA, MINH/ONI Ascom: [id number] * Neli Collazo MD - 08/19/2020 1:27 PM CDT Family Notification Documentation Contact made: 08/19/2020 1:27 PM Person(s) contacted: Adriane Hilliard Method of communication: Phone Phone number: [phone] Duration of discussion: 10 minutes Summary of discussion Updated regarding seizure frequency and current AED regmine. Explained he should stay on current medications until his follow up with Dr. Raymundo. Family voiced understanding. [facility] and that is likely why the dose was changed. Answered all other questions. * Marcella Calderon SLP - 08/19/2020 9:57 AM CDT [facility] Bedside Swallow Evaluation Patient: Mojgan Tabor [facility] Record Number: [id number] Date of : 1960 Age: [age] year old Patient Active Problem List: Seizure Headache, unspecified headache type Hyponatremia Anxiety Cerebrovascular accident Hyperlipidemia Hypertension Insomnia Low back pain Osteoporosis Truncal ataxia Therapeutic procedure Seizures Alcohol abuse, uncomplicated Benign neoplasm of prostate Epilepsy, unspecified, not intractable, without status epilepticus Difficulty in walking, not elsewhere classified Muscle weakness (generalized) Other specified rheumatoid arthritis, unspecified site Syncope and collapse Past Medical History: Diagnosis Date ??? CVA (cerebral vascular accident) ??? HTN (hypertension) ??? Seizure In addition to the 1:1 evaluation of the patient, additional eval time was spent completing the chart review prior to the assessment, completing the multidisciplinary plan of care and education plan post evaluation and communicating results of the eval to other treatment team members. PPE: PPE donned by [facility] during this session - N95 mask, eye protection and gloves. Impressions: Pt presents with moderate oral dysphagia with suspected degree of pharyngeal dysphagiagiven intermittent clinical signs of aspiration with thin liquid trials during [facility]'s bedside swallow assessment. Recommend downgrading Pt to a Pureed (4)/Dys 1 diet with Mildly Thick (2)/[place] thickened liquids at this time. [facility] will plan to advance Pt's diet as his mental status and overall swallow function improves. Swallow Recommendations: Liquids: Mildly Thick (2)/[place] Diet: Pureed (4)/Dys 1 Swallowing guidelines: Sit at 90 degrees Small, controlled amounts at slow rate No straws Alternate liquids and food items frequently (1:1 ratio) Medication crushed in puree Alternate food and liquids frequently 100% supervision and/or assistance at meals Do not feed Pt if he is not awake/alert and able to safely participate in oral intake Discharge Recommendations: Patient will benefit from inpatient multidisciplinary therapies Speech therapy is recommended to improve swallow function. Current Diet: DIET REGULAR SUBJECTIVE: Patient Goals: None stated Pain: Patient denied pain OBJECTIVE: Mental Status: Pt initially awake and alert but throughout the course of [facility] visit Pt became lethargic and was unable to safely participate in PO trials. Positioning: Upright in bed Breathing Status: Room Air Oral function Exam: Grossly intact Laryngeal Function Exam: Grossly intact Trial Swallows: Thin Liquids, [place]-thick liquids and Pureed Oral Phase: Prolonged oral transit time with liquid and puree trials. Pt noted holding puree trials for severalseconds in his oral cavity without any attempt to transfer posteriorly. [facility] provided verbal and tactile cues which did help at times however Pt did require a liquid wash to consistently clear puree trials. At the end of [facility] visit Pt was unsuccessfully able to transfer puree and oral suctioning was provided. Pt also with anterior spillage with thin and nectar thickened liquids via cup. Pharyngeal Phase: Suspect delay in pharyngeal swallow onset given Pt's AMS with possible premature spillage of thin liquid trials Signs of Aspiration: Cough and /or throat clear: Thin Liquids Modifications: Thickened liquids [place] Modifications were: Successful ASSESSMENT: Swallow: Dysphagia: Oral: Moderate Pharyngeal: Minimal-moderate suspected Behavior: Cooperative and Lethargic PATTERSON Assessment: MASA Score: 162 Dysphagia Severity Level: Moderate (139 - 167) Risk for Aspiration: Mild (149 -169) Swallowing Integrity: Dysphagia: Possible Aspiration: Possible Functional Oral Intake Scale: FOIS Score: 5-Total oral intake with multiple consistencies requiring special preparation TREATMENT: Swallow EDUCATION: Patient and Nurse instructed in recommendations and indicated understanding. INFORMED CONSENT TO TREATMENT: Plan of care including recommended therapy, goals, and frequency, as well as potential risks and benefits of treatment/assessment explained to patient. Patient understands and agrees to proceed. Short Term Goals Patient to demonstrate no clinical signs/symptoms of aspiration or difficulty swallowing with recommended diet. Nursing Home Goal (s): Patient to be independent/baseline with functional mobility and self care and be able to safely discharge to prior level of care. Marcella Scherer M.S., [facility] Speech Language Pathologist [phone] * Felicity Green - 08/19/2020 7:52 AM CDT Pt having trouble swallowing. Pt pockets food and doesn't always understand to swallow. Speech evaluation ordered. * Walt Gomez - 08/19/2020 7:51 AM CDT Neurology Progress Note Patient: Mojgan Tabor Room: 514 Age: [age] year old Subjective: Mojgan Tabor is a 60 year old male with a history of post-stroke epilepsy, HTN, and prior alcohol abuse who presented on 08/13 with breakthrough seizures secondary to subtherapeutic anti-epileptic therapy (noncompliance). Since his seizure onset in 2009, he has had recurrent seizure breakthroughs and status epilepticus episodes from medication noncompliance. He was initially just on Keppra 1500BID but now was requiring Keppra 2000 BID, Depalote 750BID and Vimpat 200BID. However, his nursing facility was only giving him Keppra 2000BID, Depakote 250BID, Vimpat 100BID leading to seizures every other day over the last month. He has right-sided onset focal seizures; he has right paraesthesia foll owed by secondary generalizations including dyscognitive events, convulsions, and tongue bites withpost-ictal confusion. While admitted, he has had many seizures on vEEG while restarting his home regimen. He required a few prn doses of ativan. His Depakote was loaded with 1500mg due to a level of 13 then was been increased to 1000BID. Klonopin 2mg BID was added. Overnight: This morning, patient is complaining of feeling warm, but no chills. He reports feeling fine otherwise. He denies chest pain, trouble breathing, extremity pain, or other symptoms. Objective: BP 172/94 Pulse 103 Temp 97.5 ??F (36.4 ??C) (Axillary) Resp 20 Ht 5' 11 (1.803 m) Wt 149 lb (67.6kg) SpO2 97% BMI 20.78 kg/m2 Temp (30hrs) Max:98 ??F (36.7 ??C) Body mass index is 20.78 kg/m??. Exam: General: Heent - NCAT, MMM, anicteric Neck - No JVD, LAD, trachea midline CV - RRR, normal s1/s2, no m/r/g Pulm - CTAB, no w/r/r Abd - BS+, soft, NTND Ext: No c/c/e, 2+ dpp, normal ROM Cortical Function Mental Status He follows simple commands. He is lethargic with occasional inattention, but redirectable. Orientation Person, place, time, and situation Language Fluency intact, comprehension intact, repetition intact Visual Ivan Diminished bilateral temporal ivan Neglect Left hemineglect Cranial Nerves II Pupils 4 mm and [...] Bulk No abnormalities noted Tone Increased tone in left upper and lower Proximal Upper Distal Upper Proximal Lower Distal Lower Right 5/5 5/5 5/5 5/5 Left 4/5 4/5 4/5 4/5 Muscle Stretch Reflexes BI TRI BR PAT ACH TOES Right 2 2 2 2 2 Down Left 3 3 3 4 3 Up Sensory Light Touch Symmetric and intact bilaterally Noxious Stimuli Not tested Temperature Not tested Pallesthesia Not tested Cerebellar FNF Right Intact Left Intact Gait Deferred Labs: Recent Results (from the past 24 hour(s)) GLUCOSE - POINT OF CARE Collection Time: 08/18/20 9:17 AM Result Value Ref Range Glucose WB/POC 89 70 - 115 mg/dL Specimen Type Arterial/Capillary GLUCOSE - POINT OF CARE Collection Time: 08/18/20 9:21 AM Result Value Ref Range Glucose WB/POC 88 70 - 115 mg/dL Specimen Type Arterial/Capillary GLUCOSE - POINT OF CARE Collection Time: 08/18/20 12:38 PM Result Value Ref Range Glucose WB/POC 94 70 - 115 mg/dL Specimen Type Arterial/Capillary GLUCOSE - POINT OF CARE Collection Time: 08/18/20 4:39 PM Result Value Ref Range Glucose WB/POC 98 70 - 115 mg/dL Specimen Type Arterial/Capillary Assessment and Plan: Mojgan Tabor is a 60 year old male with a history of post-stroke epilepsy, HTN, and prior alcohol use disorder (sober since 2016) who presented on 08/13 with breakthrough seizures secondary to subtherapeutic anti-epileptic therapy (noncompliance). He has recurrent issues with breakthrough seizures secondary to noncompliance. Now having improved seizure control, last cluster of 4 seizures at 5am on 08/19. This is improved from >100 at the beginning of his stay. His current regimen seems to providing good control. He did spike an axillary temperature this morning. He is at risk of aspirationpneumonia due to poor swallow function and seizure activity. #Fever - Obtain CXR and repeat CBC - obtain U/A, blood, urine and sputum cultures if leukocytosis or other signs of developing infection #Post-Stroke Epilepsy #Breakthrough seizures - Continue with home AED medications: 2g Keppra BID, 200 mg BID Vimpat - Continue with increased Depakote dose: 1g BID - Continue with new AED: clonazepam 2mg BID - Discontinue video EEG monitoring for subclinical seizures ?? #HTN - Continue home amlodipine 5 mg daily ?? #Hx of CVA - Continue with home aspirin, Lipitor for secondary stroke prevention ?? #Thrombocytopenia (improved/resolved) - Possibly secondary to Depakote vs less likely HIIT ?? #Alcohol Use Disorder - Continue with thiamine, folate, multivitamin Inpatient Checklist: Lines: PIV Prophylaxis: Lovenox 40g Diet: regular Activity: Activity as tolerated Code status: Full Code Disposition: Inpatient monitoring Discussed Assessment and Plan with Attending Physician, Dr. Rommel Gomez MS3 Neurology * Crescencio Carney MD - 08/19/2020 7:32 AM CDT General Neurology Progress Note Mojgan Tabor Age: [age] year old Date of : 1960 Date of Admission: 08/13/2020 Hospital Day: 6 Subjective Hospital Course: Mojgan Tabor is a 60 year old male with a history of right parietal stroke with post stroke epilepsy, and alcohol abuse presenting on 08/13 with multiple seizures wfrom his nursing facility. Prior to admission he was not taking the correct dose of prescribed AED medications, and was describing one seizure every 2 days for the last month. On arrival had 3 seizures, each lasting 1 minute, described as GTCs per EMS. He was admitted to neurology and started on cEEG. His home AED medications were resumed (2g Keppra BID, [address] BID, and 200 mg Vimpat BID), and he was started on klonopin 1 mg TID. He continued to have multiple electrographic right hemisphere seizures, and was loaded with 1.5 g Depakote due to low level (13). Brain MRI was done which showed no acute intracranial pathology. Klonopin was increased to 2 mg BID due to continuing seizures. ?? Interval History: Last seizure on EEG noted yesterday morning. This morning febrile to 100.7F. Objective Patient Vitals for the past 24 hrs: BP Temp Temp src Pulse Resp SpO2 08/19/20 0344 172/94 97.5 ??F (36.4 ??C) Axillary 103 20 97 % 08/18/20 2352 (!) 156/101 97.5 ??F (36.4 ??C) Axillary 105 20 95 % 08/18/20 2030 (!) 151/102 97.5 ??F (36.4 ??C) Axillary (!) 112 20 92 % 08/18/20 1533 141/86 97.5 ??F (36.4 ??C) Oral 92 20 96 % 08/18/20 1230 123/82 98 ??F (36.7 ??C) Axillary 87 20 97 % Intake/Output Summary (Last 24 hours) at 08/19/2020 0733 Last data filed at 08/18/2020 1428 Gross per 24 hour Intake 480 ml Output 400 ml Net 80 ml Exam: Cortical Function Mental Status Awake, alert, follows commands Orientation Person, place, time, and situation Language Fluency intact, comprehension intact, repetition intact Visual Ivan Intact bilaterally to confrontation Neglect Some left sided hemineglect ?? Cranial Nerves II Pupils 4 mm and bilaterally reactive to light. Fundoscopic exam not performed. VIII Hearing is intact bilaterally to finger rub. III/IV/ Right gaze preference, but crosses eyes midline.No diplopia, ptosis, nystagmus or convergence abnormalities noted. IX/X Palate elevated symmetrically without phonation abnormalities noted. V Facial sensation symmetric to light touch and intact bilaterally. Corneal reflex not examined. XIHead turning and shoulder shrug are intact. VII Left facial droop XII Tongue is midline with normal movements and no atrophy noted. ?? Motor Function Movement No abnormalities noted Bulk No abnormalities noted Tone Increased in LUE/LLE ? Proximal Upper Distal Upper Proximal Lower Distal Lower Right 5/5 5/5 5/5 5/5 Left 4/5 4/5 4/5 4/5 ?? Muscle Stretch Reflexes ?? BI TRI BR PAT ACH TOES Right 2 2 2 2 2 Down Left 3 3 3 3 3 Up ?? Sensory Intact to light touch in all 4 extremities ?? Cerebellar ?? FNF Right Intact Left EARNEST ?? Gait Deferred Assessment/Plan Mojgan Tabor is a 60 year old male with a history of post-stroke epilepsy presenting with multiple breakthrough seizures in the setting of subtherapeutic AED regime. After restarting home medication doses he continued to have multiple clinical and subclinical focal seizures with return to back to baseline. Seizure burden improved with increasing AED medications. ?? #Focal Seizures #Post-Stroke Epilepsy - Continue with home AED medications: 2g Keppra BID, 200 mg BID Vimpat - Continue with increased Depakote dose, 1g BID and clonazepam 2mg BID - Continue with video EEG monitoring for subclinical seizures ?? #HTN - Continue home amlodipine 5 mg daily ?? #Fever - CXR for possible aspiration, UA pending - Repeat CBC pending - Continue to monitor #Right Parietal Stroke - Continue with home aspirin, Lipitor for secondary stroke prevention ?? #Thrombocytopenia - Possibly secondary to Depakote ?? #Alcohol Abuse - Continue with thiamine, folate, multivitamin ?? Diet: Regular DVT ppx: Lovenox Dispo: PT/OT pending Patient seen and discussed with attending physician, Dr. Rommel Collazo MD PGY-2, Neurology I have seen and examined the patient with the resident and I agree with the findings and plan of care as documented by the resident. Date of Service: 08/19/2020 ?? History 60-year-old -[place] male with previous right parietal stroke and post stroke seizures and frequent admissions for noncompliance. Apparently his family have been telling the detention to reduce his AEDs. Admitted again with concerns of seizures. He has recovered back to baseline and has received Keppra and Vimpat and Depakote. A seizure was on 08/18/2020 at 5 AM he has been seizure free since then. Examination. Awake alert and conversational. Left hemiparesis previous stroke Diagnosis. Post stroke epileptic seizures. Noncompliance. Plan we will continue the present dose of Keppra 2 g p.o. b.i.d. and Vimpat 200 mg p.o. b.i.d., Depakote 1 g b.i.d. Will discharge home as soon as he is stable. Will need supervised medication need to educate his family not to reduce his AEDs. ?? Please see resident notes for details ?? Crescencio Carney MD Attending Physician, Neurology * Sean Hughes RN - 08/18/2020 7:43 PM CDT Monitor safety labs pain v/s * Felicity Green - 08/18/2020 6:59 PM CDT Small red abrasion on shaft of penis. Picture documented. Ointment placed on abrasion. * Dionne Lutz, NICHOLAS - 08/18/2020 4:15 PM CDT [facility] Physical Medicine and Rehabilitation Physical Therapy Initial Evaluation Note Patient: Mojgan Tabor [facility] Record Number: [id number] Date of : 1960 Age: [age] year old Face mask: PT and OT wore procedural masks during session. Discharge Recommendation: Patient will benefit from multidisciplinary [...] plan. Physician Orders: Evaluation and Treat PRECAUTIONS: Fall Activity Level as tolerated DIAGNOSIS: Patient Active Problem List: Seizure Headache, unspecified headache type Hyponatremia Anxiety Cerebrovascular accident Hyperlipidemia Hypertension Insomnia Low back pain Osteoporosis Truncal ataxia Therapeutic procedure Seizures Alcohol abuse, uncomplicated Benign neoplasm of prostate Epilepsy, unspecified, not intractable, without status epilepticus Difficulty in walking, not elsewhere classified Muscle weakness (generalized) Other specified rheumatoid arthritis, unspecified site Syncope and collapse Past Medical History: Diagnosis Date ??? CVA (cerebral vascular accident) ??? HTN (hypertension) ??? Seizure SUBJECTIVE: I shoot hoops. PATIENT GOALS: Work with therapy Home living: Type of Residence: [facility] Equipment At Home: Wheelchair-Standard Prior Function: Mobility: Wheelchair Bound At start of therapy session, patient found in bed Pain: No pain reported during session. Follow-up for pain: No follow-up for pain indicated and patient agreed to proceed with treatment OBJECTIVE: General Appearance: Supine in bed, cEEG Precautions: cEEG Vitals: Rest BP: ?? HR: ?? SpO2 ?? SpO2 ?? Room Air ?? L 02 ? Ex/Gait/Activity Without 02 BP: ?? HR: ?? SpO2 ?? Room Air ?? Ex/Gait/Activity With 02 BP: ?? HR: ?? SpO2 ?? L 02 ?? Post Activity BP: ?? HR: ?? SpO2 ?? SpO2 ?? L 02 ?? Room Air ?? Observations: Denies dizziness/dyspnea MENTAL STATUS: Alert and oriented to self and hospital; poor safety awareness and insight into deficits; decreased attention to task; delayed processing DIRECTION FOLLOWING: Able to follow single step commands 75 % with repeated cues and increased time ROM: BLE PROM WFL; AROM decreased STRENGTH: LLE grossly 3-/5; RLE grossly 4+/5 SENSATION: My toes are a little numb. NEGLECT: L-sided inattention FUNCTIONAL MOBILITY Not Tested Not Applicable Independent Stand by Assist Minimal Moderate Maximum Dependent Rolling x Scooting x Supine to/from sit x2 Sit to/from Stand X to attempt Bed to/ chair x Observation: Pt unable to clear buttocks from bed 2/2 decreased strength. Pt on seizure precautionsso chair transfer not attempted. BALANCE: Sitting Static: poor Dynamic: poor Observation: significant retropulsion noted GAIT: N/a unable to stand upright 2/2 decreased strength ACTIVITY TOLERANCE: Patient's activity tolerance: fair TREATMENT/INTERVENTIONS: evaluation, ROM, strengthening exercises, coordination exercises, bed mobility training, transfer training, balance activities, monitoring of vitals and cognitive stimulation EDUCATION: While performing PT, Patient was instructed in:Functional mobility training/weight bearing status, Safety awareness/fall precaution and Home exercise program Patient demonstrated Questionable understanding of instructions given. INFORMED CONSENT TO TREATMENT: Plan of care is discussed but patient with questionable understanding. ASSESSMENT: Patient would benefit from additional Physical Therapy to achieve the following functional goals toenhance independence. Short Term Goals: Goal Formation With patient Patient will perform bed mobility: Minimal assist Patient will transfer sit to/from stand: Minimal assist Patient will maintain good static sitting balance. Postbed Stitcher Goal(s): Patient to discharge to appropriate next level of inpatient care Equipment Issued: gait belt Plan: If patient is discharged from the facility, this note serves as a discharge summary if further physical therapy visits did not occur. Following therapy session, patient left in bed, with bed alarm on and with call light within reach * Michelle Randle OT - 08/18/2020 2:47 PM CDT [facility] Physical Medicine and Rehabilitation Occupational Therapy Initial Evaluation Note Patient: Mojgan Tabor Med Record Number: [id number] Date of : 1960 Age: [age] year old Face Mask: Therapist wore procedural mask, gloves and eye protection during entire treatment session. Discharge Recommendation: Patient will benefit from multidisciplinary inpatient therapies. In addition to the 1:1 evaluation of the patient, additional eval time was spent completing the chart review prior to the assessment, completing the multidisciplinary plan of care and education plan post evaluation and communicating results of the eval to other treatment team members. Plan: ADL training Cognitive retraining Functional transfer training Endurance training Bed mobility Safety awareness HEP training Physician Orders: Evaluation and Treat Precautions: Seizure DIAGNOSIS: Patient Active Problem List: Seizure Headache, unspecified headache type Hyponatremia Anxiety Cerebrovascular accident Hyperlipidemia Hypertension Insomnia Low back pain Osteoporosis Truncal ataxia Therapeutic procedure Seizures Alcohol abuse, uncomplicated Benign neoplasm of prostate Epilepsy, unspecified, not intractable, without status epilepticus Difficulty in walking, not elsewhere classified Muscle weakness (generalized) Other specified rheumatoid arthritis, unspecified site Syncope and collapse Past Medical History: Diagnosis Date ??? CVA (cerebral vascular accident) ??? HTN (hypertension) ??? Seizure SUBJECTIVE: Patient is poor historian this date. Family member at bedside unable to report patient's level of assist at HI. PATIENT GOALS: Patient is confused and unable to participate in goal formation. Home living: Type of Residence: [facility] Equipment At Home: Wheelchair-Standard Prior Function: Mobility: Wheelchair Bound At start of therapy session, patient found in bed and with bed alarm on. Pain: Patient has 0/10 pain Follow-up for pain: No follow-up for pain indicated and patient agreed to proceed with treatment OBJECTIVE: General Appearance: 60 year old male supine in NAD with seizure pads to bed Precautions: IV's: Central line and continuous EEG Edema: No abnormal edema noted Vitals: Rest BP: HR: SpO2 SpO2 Room Air L 02 Ex/Gait/Activity Without 02 BP: HR: SpO2 Room Air Ex/Gait/Activity With 02 BP: HR: SpO2 L 02 Post Activity BP: HR: SpO2 SpO2 L 02 Room Air Observations: Denies dizziness/dyspnea Cognitive: Alert and oriented x self and hospital only. Follows 1 step commands 75% of the time with tactile/verbal cues. Poor safety awareness/insight. Patient with decreased attention to task and delayed processing. Perceptual: L neglect, unable to cross midline or track past midline Upper extremity range of motion: B/L UE AAROM WFL Upper extremity strength: R UE 4/5, L UE grossly 3-/5 Tone: Normal Coordination: Impaired serial opposition L UE, intact R UE Sensation: NT Patient's activity tolerance: fair Comments: FUNCTIONAL MOBILITY Not tested Independent Stand by Assist Minimal Moderate Maximum Dependent Rolling x Supine to/from sit X 2 Sit to/from Standing Attempted with max x 1- unable to clear buttocks from bed Bed to/from chair x Unable to stand this date. Patient reports he is w/c bound but can propel w/c Independently. Patient is questionable historian. Patient on seizure precautions, therefore transfer to chair not attempted. Balance: Static Sitting: poor Dynamic Sitting: poor Static Standing: not tested Dynamic Standing: not tested Activities of Daily Living Feeding: NT Grooming/Bathing: Moderate assist facial hygiene seated EOB using R UE Upper Extremity Dressing: not tested Lower Extremity Dressing: Maximal assist adjust pants seated EOB Toileting/Transfers: not tested Splint Issued/Checked: none TREATMENT / EDUCATION / EVALUATION: Purpose of Occupational Therapy evaluation explained. While performing mobility, exercise and self care, [...] upper extremity function, endurance and decreased safety awareness, Patient continues to benefit from skilled Occupational Therapy to achieve the following functional goals. and Equipment Issued: gait belt Nurse and PT (co-evaluation 2/2 unknown level of assist required) contacted regarding patient status and/or discharge plan. Short Term Goals: Cognition: 1 step commands and 100% of the time Patient will perform grooming At edge of bed and With min assist Patient will perform supine to sit With mod assist and X 2 Patient will tolerate AROM Bilateral UE, 1 set and 10 reps Nursing Home Goal: Patient to discharge to appropriate next level of inpatient care If patient is discharged from the facility, this note serves as a discharge summary if further occupational therapy visits did not occur. Following therapy session, patient left in bed, with bed alarm on, with call light within reach, with family in room and with RN/CP rehab cues written on white board. * Angelina Gould MSW - 08/18/2020 10:36 AM CDT SW following for DC planning. Per chart review, patient from [facility]. Clinical updates sentto [facility]. 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 Prior to admission he was not taking the correct dose of prescribed AED medications, and was describing one seizure every 2 days for the last month. On arrival had 3 seizures, each lasting 1 minute, described as GTCs per EMS. He was admitted to neurology and started on cEEG. His home AED medications were resumed (2g Keppra BID, [address] BID, and 200 mg Vimpat BID), and he was started on klonopin 1 mg TID. He continued to have multiple electrographic right hemisphere seizures, and was loaded with 1.5 g Depakote due to low level (13). Brain MRI was done which showed no acute intracranial pathology. Klonopin was increased to 2 mg BID due to continuing seizures. Interval History: Had 6 seizures overnight, with the last seizure at 9 pm per cEEG report. This morning denies any complaints. Objective Patient Vitals for the past 24 hrs: BP Temp Temp src Pulse Resp SpO2 08/18/20 0443 148/97 97.4 ??F (36.3 ??C) Axillary 88 18 96 % 08/17/20 2341 150/96 97.4 ??F (36.3 ??C) Axillary 77 18 98 % 08/17/202023 149/98 97.4 ??F (36.3 ??C) Axillary 81 18 98 % 08/17/20 1559 121/79 97.6 ??F (36.4 ??C) -- 73 18 98 % 08/17/20 1158 126/79 97.4 ??F (36.3 ??C) -- 62 18 99 % 08/17/20 0748 132/83 97.3 ??F (36.3 ??C) -- 53 16 100 % Intake/Output Summary (Last 24 hours) at 08/18/2020 0705 Last data filed at 08/17/2020 1852 Gross per 24 hour Intake 620 ml Output 800 ml Net -180 ml Exam: Cortical Function Mental Status Awake, alert, follows commands Orientation Person, place, time, and situation Language Fluency intact, comprehension intact, repetition intact Visual Ivan Intact bilaterally to confrontation Neglect Some left sided hemineglect Cranial Nerves II Pupils 4 mm and bilaterally reactive to light. Fundoscopic exam not performed. VIII Hearing is intact bilaterally to finger rub. III/IV/ Right gaze preference, but crosses eyes midline.No diplopia, ptosis, nystagmus or convergence abnormalities noted. IX/X Palate elevated symmetrically without phonation abnormalities noted. V Facial sensation symmetric to light touch and intact bilaterally. Corneal reflex not examined. XIHead turning and shoulder shrug are intact. VII Left facial droop XII Tongue is midline with normal movements and no atrophy noted. Motor Function Movement No abnormalities noted Bulk No abnormalities noted Tone Increased in LUE/LLE Proximal Upper Distal Upper Proximal Lower Distal Lower Right 5/5 5/5 5/5 5/5 Left 4/5 4/5 4/5 4/5 Muscle Stretch Reflexes BI TRI BR PAT ACH TOES Right 2 2 2 2 2 Down Left 3 3 3 3 3 Up Sensory Intact to light touch in all 4 extremities Cerebellar FNF Right Intact Left EARNEST Gait Deferred Assessment/Plan Mojgan Tabor is a 60 year old male with a history of post-stroke epilepsy presenting with multiple breakthrough seizures in the setting of subtherapeutic AED regime. After restarting home medication doses he continued to have multiple clinical and subclinical focal seizures with return to back to baseline. #Focal Seizures #Post-Stroke Epilepsy - Continue with home AED medications: 2g Keppra BID, 200 mg BID Vimpat - Continue with increased Depakote dose, 1g BID and clonazepam 2mg BID - Continue with video EEG monitoring for subclinical seizures #HTN - Continue home amlodipine 5 mg daily #Right Parietal Stroke - Continue with home aspirin, Lipitor for secondary stroke prevention #Thrombocytopenia - Possibly secondary to Depakote #Alcohol Abuse - Continue with thiamine, folate, multivitamin Diet: Regular DVT ppx: Lovenox Dispo: PT/OT pending Patient seen and discussed with attending physician, Dr. Rommel Collazo MD PGY-2, Neurology I have seen and examined the patient with the resident and I agree with the findings and plan of care as documented by the resident. Date of Service: 08/18/2020 History 60-year-old -[place] male with previous right parietal stroke and post stroke seizures and frequent admissions for noncompliance. Admitted again with concerns of seizures. He has recovered back to baseline and has received Keppra and Vimpat and Depakote Examination. Awake alert and conversational. Left hemiparesis previous stroke Diagnosis. Post stroke epileptic seizures. Noncompliance. Plan we will continue the present dose of Keppra 2 g p.o. b.i.d. and Vimpat 200 mg p.o. b.i.d., Depakote 1 g b.i.d. Will discharge home as soon as he is stable. Will need supervised medication Please see resident notes for details Crescencio Carney MD Attending Physician, Neurology * Jase Richmond MD - 08/17/2020 12:21 PM CDT General Neurology Progress Note Mojgan Tabor Age: [age] year old Date of : 1960 Date of Admission: 08/13/2020 Hospital Day: 4 Subjective Brief HPI: 60 year old??man with??PMH of alcohol abuse, and head injury,??post-stroke epilepsy who was broughtto ER by EMS for increase in seizure frequency. ?? PRIOR HISTORY: Age of onset at 50-year-old. ?? Clinical semiology described as (Aura) tingling sensation over the right side, (Ictus #1) brief dyscognitive events, and (Ictus #2) focal seizures with secondary generalization, tongue bites. ? - Initially was taking Levetiracetam 1500 mg BID, with seizure being controlled but had multiple seizures in 09/2017, in the setting of missed dosage. ??The seizures clustered, and was difficult to control. ?Later, his Levetiracetam was increased and Depakote was added. ?He does have erratic compliance at times, but still has breakthrough seizures even with good compliance, with breakthough event with Levetiracetam 2000 mg BID and Depakote DR 500 mg BID. Initiated Oxcarbazepine with improved seizure control, but had symptomatic hyponatremia. ??Tried substituting Aptiom for Oxcarbazepine,but stopped Depakote instead. ??Symptomatic hyponatremia. ??Given confusion, asked to stop both Apti om and Oxcarbazepine for the time being but had generalized covulsions occurred in 01/24/2018, whichresulted in ER visit. ??Provided Vimpat as alternative. ?? - Seizures controlled until 04/2019, until had repetitive seizures and status epilepticus. ??Etiology suspected due to poor compliance. ??Had refractory status epilepticus, and AEDs was increased upon discharges. ??Took about 2 months to return to baseline. ??Repeated MRI Brain in 05/2019 showed resolution of hypersignal changes. ?? Patient's sister was concerned about drowsiness with his medication regimen so vimpat was slowly tapered off to 200/200 and was kept on Depakote DR 750 mg TID and Keppra 2000 mg BID. ?? Per last visit with Dr. Raymundo he was supposed to be on Keppra 2000 mg BID, Depakote 750 mg BID and Vimpat 200 mg BID but he mentions that he has just been taking keppra 2000 mg BID, depakote 250 mg BID and Vimpat 100 mg BID. He mentions that his medicine was decreased by his nurses nearly a month ago and since then he has been having more seizure episodes. Reportedly he has been 1 seizure episode every 2 days for last 1 month. Today he had one seizure atfacility which was witnessed by his room mates. EMS was called and he had around 3 seizures lasting1 minute each which are described as GTC with no bladder or bowel incontinence and no post ictal confusion. ?? He mentions that he had multiple falls in last month due to seizures and has also hit his head multiple times. ?? Denies any excessive drowsiness due to AEDs, Denies having fever, cough, SOB or any other signs of infection. Denies having any other focal weakness. Interval History: - Continues to have multiple simple focal seizures with rapid return to baseline in between. - Exam this morning is unchanged from yesterday. Objective Patient Vitals for the past 24 hrs: BP Temp Temp src Pulse Resp SpO2 08/17/20 0748 132/83 97.3 ??F (36.3 ??C) -- 53 16 100 % 08/17/20 0446 139/83 97.2 ??F (36.2 ??C) -- 64 18 100 % 08/17/20 0008 126/77 97.7 ??F (36.5 ??C) Oral 68 18 100 % 08/16/20 2038 142/84 96.9 ??F (36.1 ??C) Axillary 69 18 99 % 08/16/20 1612 145/73 97.9 ??F (36.6 ??C) -- 79 18 97 % Intake/Output Summary (Last 24 hours) at 08/17/2020 1221 Last data filed at 08/17/2020 0844 Gross per 24 hour Intake 120 ml Output 1800 ml Net -1680 ml Exam: Cortical Function Mental Status Awake, alert, follows commands Orientation Person, place, time, and situation Language Fluency intact, comprehension intact, repetition intact Visual Ivan Intact bilaterally to confrontation Neglect Has left hemineglect ?? Cranial Nerves II Pupils 5 mm and bilaterally reactive to light. Fundoscopic exam not performed. VIII Hearing is intact bilaterally to finger rub. III/IV/ Extraocular muscles intact. No diplopia, ptosis, nystagmus or convergence abnormalities noted. IX/X Palate elevated symmetrically without phonation abnormalities noted. V Facial sensation symmetric to light touch and intact bilaterally. Corneal reflex not examined. XIHead turning and shoulder shrug are intact. VII Mild Left facial droop. XII Tongue is midline with normal movements and no atrophy noted. ?? Motor Function Movement No abnormalities noted Bulk No abnormalities noted Tone Spasticity in left lower extremity. ? Proximal Upper Distal Upper Proximal Lower Distal Lower Right 5/5 5/5 5/5 5/5 Left 4/5 4/5 4/5 4/5 ?? Muscle Stretch Reflexes ?? BI TRI BR PAT ACH TOES Right 2 2 2 2 2 Down Left 3 3 2 3 3 Up ?? Sensory Light Touch Symmetric and intact bilaterally Noxious Stimuli Symmetric and intact bilaterally Temperature Not tested Pallesthesia Not tested ?? Cerebellar ?? FNF FREEDOM HKS Right EARNEST Deferred EARNEST Left EARNEST Deferred EARNEST ?? Gait Deferred Labs: Recent Labs Component Name 08/16/20 0047 08/15/20 1505 08/14/20 0600 WBC 6.2 7.0 8.7 RBC 4.16* 4.02* 4.77 HGB 13.5 13.4* 15.5 HCT 39.6 38.8* 46.0 Recent Labs Component Name 08/16/20 0047 08/15/20 0810 08/14/20 0600 NA 141 142 146* CL 107 107 110* CO2 24 25 23 BUN 11 15 14 CREATININE 0.7 0.8 1.0 CALCIUM 8.8 8.9 9.3 No results for input(s): MG in the last 94720 hours. Recent Labs Component Name 08/14/20 0600 05/16/19 1151 05/15/19 0911 PHOS 3.2 2.7 3.0 Recent Labs Component Name 07/18/19 1139 04/11/15 0622 PT 12.9 12.1 INR 1.0 0.9 No results for input(s): A1C in the last 59724 hours. Recent Labs Component Name 04/11/15 0622 CHOL 196 HDL 81 LDLCALC 102* TRIG 63 Recent Labs Component Name 05/15/19 1652 TSH 1.344 Recent Labs Component Name 05/15/19 0911 05/14/19 2152 05/13/19 2030 01/24/19 0154 CKTOTAL 63 - - 127 TROPONINI <0.010 <0.010 0.012 - EEG VIDEO MONITORING 2019: IMPRESSION This is an abnormal cEEG due [...] was identified at 09:33 AM on 05/11/2019. MOST RECENT cEEG READ: IMPRESSION This is an abnormal cEEG due to 1) frequent right focal electrographic seizures, 2) right sided slowing, 3) generalized slowing. ?? CLINICAL CORRELATION: From 08/14-08/15: This finding is consistent with right focal seizures with right hemisphere dysfunction on top of generalized encephalopathy, but is not specific to etiology. Assessment 60 year old??man with??PMH of alcohol abuse, and head injury,??post-stroke epilepsy who was broughtto ER by EMS for increase in seizure frequency. ?? His seizure frequency is increased likely due to inadequate AED regimen. There is also a possibility of questionable compliance. After restarting home regimen, he still appears to have frequent clinical and subclinical seizures. Exam is at his baseline. No other clear provoking factor has been identified yet. Will attempt to increase dosage of AEDs in attempt to achieve better control. Controlling seizure frequency without intubation/sedation would be the priority. Plan # Focal seizures with secondary generalization + Subclinical seizures: - Continue Keppra 2000 mg BID - Continue Depakote 750 mg BID. Will load with Depakote 1500 mg IV as level today was less than 13. - Continue Vimpat 200 mg BID. - Increased Klonopin to 2 mg BID. - Ativan 2 mg x 1 if Seizure > 5 mins. - Keep cEEG for now until seizure free. - Seizure and fall precautions. #Secondary stroke prevention: - Continue Aspirin + Lipitor 40 mg QD. #HTN: - Continue Amlodipine 5 mg # Thrombocytopenia: (currently stable). - May consider switching Depakote if platelets fall below < 50. Case findings discussed with Dr. Siddhartha De Paz, Attending physician. Jase Richmond MD PGY-2 Neurology Resident Associated attestation - Baldev Carl MD - 08/17/2020 5:08 PM CDT NEUROLOGY ATTENDING NOTE The patient seen and examined with resident, I reviewed the history on rounds,examined and discussed with residents on General Neurology Team. I have reviewed and agree with resident note except as noted below: Summary: Patient is 60 year old male with history of R parietal stroke. Admitted for seizures affecting leftside. On Keppra, Vimpat, Depakote, and Clonazepam. CEEG shows persistent seizures arising from right hemisphere. MRI brain did not show new stroke. Adjusting medications to decrease seizures. Current Facility-Administered Medications Medication Dose Route Frequency Provider Last Rate Last Admin 0.9% NaCl injection 3 mL 3 mL Intracatheter q8h Jase Richmond MD 3 mL at 08/17/20 1304 And 0.9% NaCl injection 1-10 mL 1-10 mL Intracatheter PRN Jase Richmond MD acetaminophen (TYLENOL) tablet 500 mg 500 mg Oral q4h PRN Antionette Ya MD 500 mg at 08/16/20 0957 amLODIPine (NORVASC) tablet 5 mg 5 mg Oral QDAY Jase Richmond MD 5 mg at 08/17/20 0840 aspirin chew tablet 81 mg 81 mg Oral QDAY Jase Richmond MD 81 mg at 08/17/20 0840 atorvastatin (LIPITOR) tablet 40 mg 40 mg Oral AT BEDTIME Jase Richmond MD 40 mg at 08/16/20 2119 clonazePAM (KlonoPIN) tablet 2 mg 2 mg Oral BID Jase Richmond MD divalproex DR (DEPAKOTE) tablet 1,000 mg 1,000 mg Oral BID Germain Cardoza MD 1,000 mg at 08/17/20 0839 folic acid (FOLVITE) tablet 1 mg 1 mg Oral QDAY Germain Cardoza MD 1 mg at 08/17/20 0840 heparin injection 5,000 Units 5,000 Units Subcutaneous q8h Jase Richmond MD 5,000 Units at 08/17/20 1653 lacosamide (VIMPAT) tablet 200 mg 200 mg Oral BID Jase Richmond MD 200 mg at 08/17/20 0839 levETIRAcetam (KEPPRA) tablet 2,000 mg 2,000 mg Oral BID Jase Richmond MD 2,000 mg at 08/17/20 0839 multivitamin daily tablet 1 tablet 1 tablet Oral QDAY Germain Cardoza MD 1 tablet at 08/17/20 0840 thiamine (Vitamin B-1) tablet 100 mg 100 mg Oral QDAY Germain Cardoza MD 100 mg at 08/17/20 0839 No Known Allergies Past Medical History: Diagnosis Date CVA (cerebral vascular accident) HTN (hypertension) Seizure No past surgical history on file. Social History Tobacco Use Smoking status: Former Smoker Packs/day: 1.00 Years: 15.00 Pack years: 15.00 Smokeless tobacco: Never Used Substance Use Topics Alcohol use: No Comment: last drink 2015 Drug use: No Comment: occasional No family history on file. Exam findings Vitals: 08/17/20 0446 08/17/20 0748 08/17/20 1158 08/17/20 1559 BP: 139/83 132/83 126/79 121/79 Pulse: 64 53 62 73 Resp: 18 16 18 18 Temp: 97.2 ??F (36.2 ??C) 97.3 ??F (36.3 ??C) 97.4 ??F (36.3 ??C) 97.6 ??F (36.4 ??C) SpO2: 100% 100% 99% 98% Weight: Height: Awake, No gaze preference today. Follows 1 step command L spastic HP, moves R side. Please see resident note for details on labs, radiology and ancillary testing. Lab Review Recent Labs Component Name 08/17/20 1455 08/16/20 0047 08/15/20 1505 08/14/20 0600 WBC 5.8 6.2 7.0 8.7 HGB 15.1 13.5 13.4* 15.5 HCT 44.3 39.6 38.8* 46.0 PLTCOUNT - 127* 127* 74* Recent Labs Component Name 08/17/20 1455 08/13/20 1700 08/13/20 1700 POTASSIUM 3.8 - 4.5 CO2 26 - 22 BUN 10 - 13 CREATININE 1.0 - 1.0 GLUCOSE 119* - 104 CALCIUM 8.8 - 9.4 ALKPHOS - - 64 ALT - - 11 AST - - 21 EGFR >60 - >60 - = values in this interval not displayed. Recent Labs Component Name 04/11/15 0622 CHOL 196 TRIG 63 HDL 81 LDLCALC 102* Recent Labs Component Name 05/12/19 0542 04/11/15 0622 HGBA1C 5.5 5.3 EEG IMPRESSION This is an abnormal cEEG due to 1) frequent right focal electrographic seizures, 2) right sided slowing, 3) generalized slowing. Medical Decision Making: IMPRESSION/PLAN Active Hospital Problems Diagnosis Date Noted Seizures 08/13/2020 Priority: Not Prioritized Continue Keppra, Depakote, and Vimpat at current doses. Check Depakote level after load. Increase Klonopin to 2 mg BID. Monitor for sedation. Continue continuous EEG. ASA and statin for stroke prevention. Time spent: I spent a total of 30 minutes reviewing chart, rounding with general neurology team, and face to face with this patient in the coordination of care. * Patricia Yang, PT - 08/17/2020 9:11 AM CDT [facility] Department of Physical Medicine & Rehabilitation Progress Note Patient: Mojgan Tabor [facility] Record Number: [id number] Date of : 1960 Age: [age] year old 08/17/20 0900 Missed Visit Missed Visit Bedrest * Joyce Boyer OT - 08/17/2020 7:45 AM CDT [facility] Department of Physical Medicine & Rehabilitation Progress Note Patient: Mojgan Tabor [facility] Record Number: [id number] Date of : 1960 Age: [age] year old 08/17/20 0700 Missed Visit Missed Visit Bedrest please increase activity if appropriate for OT eval * Sean Hughes RN - 08/16/2020 10:13 PM CDT Monitor safety v/s safety pain * Germain Cardoza MD - 08/16/2020 2:50 PM CDT Family Notification Documentation Contact made: 08/16/2020 2:51 PM Person(s) contacted: Adriane Hilliard Method of communication: Phone Phone number: [phone] Duration of discussion: 15 minutes Summary of discussion Adriane was called. We qnswer her question and updated her about Mojgan seizures and treatment plan. She appreciated the plan and was happy with managing him. Adriane stated that her nurse in his facility had reduced dose of Mojgan's seizure medications and thisis why he has had breakthrough seizure. She appreciated our call and updating her. Germain Medrano MD Neurology Resident Neurology Resident * Germain Cardoza MD - 08/16/2020 1:35 PM CDT General Neurology Progress Note Mojgan Tabor Age: [age] year old Date of : 1960 Date of Admission: 08/13/2020 Hospital Day: 3 Subjective Brief HPI: 60 year old??man with??PMH of alcohol abuse, and head injury,??right MCA stroke in 2010, post-stroke epilepsy who was brought to ER by EMS for increase in seizure frequency was found to have a dose reduction in his seizure medications vs non-compliance causing breakthrough seizure. No source of infection was found but valproic acid level was very low. He had left gaze preference with Right arm stiffness this morning. Left gaze preference, bilateral upper extremities spacticity. He was hooked up to cEEG and it waS remarkable for frequent electricalfocal seizure from right hemisphere up to 20 per hours. He has had intermittent gaze deviation to left during incidents but has remained nearly responsive and awake without significant LOC. He was adeel ded with 1500 mg iv depacone yesterday and it stopped the seizure for two hours. Interval History: he continues to have multiple electrical seizures during last night. originating from Rt cerebral hemisphere. However, he was awake, alert, oriented times two, with some fluctuation in his mental status. Is able to eat by assistance. Brain MRI is negative for acute intracranial pathology including stroke Valproic acid level is 64. Objective Patient Vitals for the past 24 hrs: BP Temp Temp src Pulse Resp SpO2 08/16/20 1203 129/77 98.5 ??F (36.9 ??C) -- 74 18 97 % 08/16/20 0827 133/95 97.7 ??F (36.5 ??C) -- 86 18 99 % 08/16/20 0453 126/76 97.7 ??F (36.5 ??C) Axillary 62 14 98 % 08/16/20 0054 130/80 98 ??F (36.7 ??C) Axillary 74 17 95 % 08/15/20 1919 134/89 97.4 ??F (36.3 ??C) Axillary 69 15 98 % 08/15/20 1751 122/78 97.2 ??F (36.2 ??C) Axillary 70 -- 100 % Intake/Output Summary (Last 24 hours) at 08/16/2020 1335 Last data filed at 08/16/2020 1243 Gross per 24 hour Intake 720 ml Output 2000 ml Net -1280 ml Exam: Cortical Function Mental Status Awake, alert, follows commands Orientation Person, time, and intrmittently place Language Fluency intact, comprehension intact, repetition intact Visual Ivan Intact bilaterally to confrontation Neglect Has left hemineglect ?? Cranial Nerves II Pupils 5 mm and bilaterally reactive to light. Fundoscopic exam not performed. VIII Hearing is intact bilaterally to finger rub. III/IV/ Extraocular muscles intact. No diplopia, ptosis, nystagmus or convergence abnormalities noted. IX/X Palate elevated symmetrically without phonation abnormalities noted. V Facial sensation symmetric to light touch and intact bilaterally. Corneal reflex not examined. XIHead turning and shoulder shrug are intact. VII Mild Left facial droop. XII Tongue is midline with normal movements and no atrophy noted. ?? Motor Function Movement No abnormalities noted Bulk No abnormalities noted Tone Spasticity in left lower extremity. ? Proximal Upper Distal Upper Proximal Lower Distal Lower Right 5/5 5/5 5/5 5/5 Left 4/5 4/5 4/5 4/5 ?? Muscle Stretch Reflexes ?? BI TRI BR PAT ACH TOES Right 2 2 2 2 2 Down Left 3 3 2 3 3 Up ?? Sensory Light Touch Symmetric and intact bilaterally Noxious Stimuli Symmetric and intact bilaterally Temperature Not tested Pallesthesia Not tested ?? Cerebellar ?? FNF FREEDOM HKS Right EARNEST Deferred EARNEST Left EARNEST Deferred EARNEST ?? Gait Deferred Labs: Recent Labs Component Name 08/16/20 0047 08/15/20 1505 08/14/20 0600 WBC 6.2 7.0 8.7 RBC 4.16* 4.02* 4.77 HGB 13.5 13.4* 15.5 HCT 39.6 38.8* 46.0 Recent Labs Component Name 08/16/20 0047 08/15/20 0810 08/14/20 0600 NA 141 142 146* CL 107 107 110* CO2 24 25 23 BUN 11 15 14 CREATININE 0.7 0.8 1.0 CALCIUM 8.8 8.9 9.3 No results for input(s): MG in the last 10759 hours. Recent Labs Component Name 08/14/20 0600 05/16/19 1151 05/15/19 0911 PHOS 3.2 2.7 3.0 Recent Labs Component Name 07/18/19 1139 04/11/15 0622 PT 12.9 12.1 INR 1.0 0.9 No results for input(s): A1C in the last 73739 hours. Recent Labs Component Name 04/11/15 0622 CHOL 196 HDL 81 LDLCALC 102* TRIG 63 Recent Labs Component Name 05/15/19 1652 TSH 1.344 Recent Labs Component Name 05/15/19 0911 05/14/19 2152 05/13/19 2030 01/24/19 0154 CKTOTAL 63 - - 127 TROPONINI <0.010 <0.010 0.012 - EEG VIDEO MONITORING 2019: IMPRESSION This is an abnormal cEEG due [...] was identified at 09:33 AM on 05/11/2019. MOST RECENT cEEG READ: IMPRESSION This is an abnormal cEEG due to 1) frequent right focal electrographic seizures, 2) right sided slowing, 3) generalized slowing. ?? CLINICAL CORRELATION: From 08/14-08/15: This finding is consistent with right focal seizures with right hemisphere dysfunction on top of generalized encephalopathy, but is not specific to etiology. Assessment 60 year old??man with??PMH of alcohol abuse, and head injury,??right MCA stroke in 2010, post-stroke epilepsy who was brought to ER by EMS for increase in seizure frequency was found to have a dose reduction in his seizure medications vs non-compliance causing breakthrough seizure. No source of infection was found but valproic acid level was very low. He had left gaze preference with Right arm stiffness this morning. Left gaze preference, bilateral upper extremities spacticity. He was hooked upto cEEG and it waS remarkable for frequent electrical focal seizure from right hemisphere up to 20 per hours. He has had intermittent gaze deviation to left during incidents but has remained nearly re sponsive and awake without significant LOC. He was loaded with 1500 mg iv depacone yesterday and itstopped the seizure for two hours. he continues to have multiple electrical seizures during last night. originating from Rt cerebral hemisphere. However, he was awake, alert, oriented times two, with some fluctuation in his mental status. Is able to eat by assistance. Plan # Focal seizures with secondary generalization + Subclinical seizures: - Continue Keppra 2000 mg BID - will increase Depakote DR to 1000 mg BID. - Will load him again with IV depacone 1500 mg IV to keep valproic acid level near upper normal of 100 - Continue Vimpat 200 mg BID. - Continue Klonopin 1 mg TID. If still seizing will increase it to 2 mg bid - Ativan 2 mg x 1 if Seizure > 5 mins. - Keep cEEG for now until seizure free. #Hypovolemic hypernatremia - Corrected: - Continue NS @ 75 ml/hr for another 24 hours for hypovolemic hypernatremia. #Secondary stroke prevention: - Continue Aspirin + Lipitor 40 mg QD. #HTN: - Continue Amlodipine 5 mg Case findings discussed with Dr. Carl , Attending physician. Germain Cardoza MD Neurology Resident Associated attestation - Baldev Carl MD - 08/16/2020 5:43 PM CDT NEUROLOGY ATTENDING NOTE The patient seen and examined with resident, I reviewed the history on rounds,examined and discussed with residents on General Neurology Team. I have reviewed and agree with resident note except as noted below: Summary: Patient is 60 year old male with history of R parietal stroke. Admitted for seizures affecting leftside. On Keppra, Vimpat, Depakote, and Clonazepam. CEEG shows persistent seizures. MRI brain did not show new stroke. Current Facility-Administered Medications Medication Dose Route Frequency Provider Last Rate Last Admin 0.9% NaCl injection 3 mL 3 mL Intracatheter q8h Jase Richmnod MD 3 mL at 08/15/202102 And 0.9% NaCl injection 1-10 mL 1-10 mL Intracatheter PRN Jase Richmond MD acetaminophen (TYLENOL) tablet 500 mg 500 mg Oral q4h PRN Antionette Ya MD 500 mg at 08/16/20 0957 amLODIPine (NORVASC) tablet 5 mg 5 mg Oral QDAY Jase Richmond MD 5 mg at 08/16/20 0959 aspirin chew tablet 81 mg 81 mg Oral QDAY Jase Richmond MD 81 mg at 08/16/20 0959 atorvastatin (LIPITOR) tablet 40 mg 40 mg Oral AT BEDTIME Jase Richmond MD 40 mg at 08/15/20 210 clonazePAM (KlonoPIN) tablet 1 mg 1 mg Oral TID Jase Richmond MD 1 mg at 08/16/[address] (DEPAKOTE) tablet 1,000 mg 1,000 mg Oral BID Germain Cardoza MD folic acid (FOLVITE) tablet 1 mg 1 mg Oral QDAY Germain Cardoza MD 1 mg at 08/16/20 1000 heparin injection 5,000 Units 5,000 Units Subcutaneous q8h Jase Richmodn MD 5,000 Units at 08/16/20 1705 lacosamide (VIMPAT) tablet 200 mg 200 mg Oral BID Jase Richmond MD 200 mg at 08/16/20 0959 levETIRAcetam (KEPPRA) tablet 2,000 mg 2,000 mg Oral BID Jase Richmond MD 2,000 mg at 08/16/20 0958 multivitamin daily tablet 1 tablet 1 tablet Oral QDAY Germain Cardoza MD 1 tablet at 08/16/20 1000 thiamine (Vitamin B-1) tablet 100 mg 100 mg Oral QDAY Germain Cardoza MD 100 mg at 08/16/20 0958 No Known Allergies Past Medical History: Diagnosis Date CVA (cerebral vascular accident) HTN (hypertension) Seizure No past surgical history on file. Social History Tobacco Use Smoking status: Former Smoker Packs/day: 1.00 Years: 15.00 Pack years: 15.00 Smokeless tobacco: Never Used Substance Use Topics Alcohol use: No Comment: last drink 2015 Drug use: No Comment: occasional No family history on file. Exam findings Vitals: 08/16/20 0453 08/16/20 0827 08/16/20 1203 08/16/20 1612 BP: 126/76 133/95 129/77 145/73 Pulse: 62 86 74 79 Resp: 14 18 18 18 Temp: 97.7 ??F (36.5 ??C) 97.7 ??F (36.5 ??C) 98.5 ??F (36.9 ??C) 97.9 ??F (36.6 ??C) SpO2: 98% 99% 97% 97% Weight: Height: Awake, alert L gaze preferences Follows 1 step command L spastic HP. Please see resident note for details on labs, radiology and ancillary testing. Lab Review Recent Labs Component Name 08/16/20 0047 08/15/20 1505 08/14/20 0600 WBC 6.2 7.0 8.7 HGB 13.5 13.4* 15.5 HCT 39.6 38.8* 46.0 PLTCOUNT 127* 127* 74* Recent Labs Component Name 08/16/20 0047 08/13/20 1700 08/13/20 1700 POTASSIUM 3.6 - 4.5 CO2 24 - 22 BUN 11 - 13 CREATININE 0.7 - 1.0 GLUCOSE 69* - 104 CALCIUM 8.8 - 9.4 ALKPHOS - - 64 ALT - - 11 AST - - 21 EGFR >60 - >60 - = values in this interval not displayed. Recent Labs Component Name 04/11/15 0622 CHOL 196 TRIG 63 HDL 81 LDLCALC 102* Recent Labs Component Name 05/12/19 0542 04/11/15 0622 HGBA1C 5.5 5.3 Imaging MRI brain IMPRESSION: 1.Motion limited study. Within this limitation, no acute intracranial abnormality. 2.Extensive cerebral, cerebellar and brainstem atrophy, significantly greater than expected for age. 3.Extensive atrophy of the right hippocampus, asymmetric as compared to the left. There is likely increased FLAIR signal in the residual right hippocampus. These findings are related to chronic seizures. Results for MOJGAN TABOR ( ) as of 08/16/2020 17:41 Ref. Range 08/16/2020 15:42 Valproic Acid Total Latest Ref Range: 50 - 100 mcg/mL 64 Medical Decision Making: IMPRESSION/PLAN Active Hospital Problems Diagnosis Date Noted Seizures 08/13/2020 Priority: Not Prioritized Reload Depakote to achieve level closer to 100. Continue Vimpat, Keppra, and Clonazepam at current dose. If continues to have seizures, then increase clonazepam to 2 mg TID. Continue to monitor with cEEG. Time spent: I spent a total of 45 minutes reviewing chart, rounding with general neurology team, and face to face with this patient in the coordination of care. * Claudine Moreno, OT - 08/16/2020 8:22 AM CDT [facility] Department of Physical Medicine & Rehabilitation Progress Note Patient: Mojgan Tabor Med Record Number: [id number] Date of : 1960 Age: [age] year old 08/16/20 0821 Missed Visit Missed Visit Bedrest (Need updated activity order) ?? Received orders for Occupational Therapy evaluation but unable to initiate due to bedrest orders. Please update activity orders when patient is medically stable to initiate evaluation. Thank you. * Patricia Yang PT - 08/16/2020 8:07 AM CDT [facility] Department of Physical Medicine & Rehabilitation Progress Note Patient: Mojgan Tabor [facility] Record Number: [id number] Date of : 1960 Age: [age] year old Received orders for Physical Therapy but unable to initiate due to bedrest orders. Please update activity orders when patient is medically stable to initiate evaluation. * Grace Norris RN - 08/15/2020 9:41 PM CDT Problem: Fall Risk Goal: Fall risk and fall related injury risk are minimized (interventions related to the fall risk can be found in the flowsheet documentation) 08/15/2020 2140 by Grace Norris RN Outcome: Progressing 08/15/2020 2140 by Grace Norris RN Outcome: Progressing Problem: Seizures Goal: Seizures are under control or absent 08/15/20202139 by Grace Norris RN Outcome: Progressing 08/15/20202139 by Grace Norris RN Outcome: Progressing Problem: SEIZURE EVENT MONITORING Goal: To record an episode to determine whether or not the episode is a seizure. 08/15/2020 214 by Grace Norris RN Outcome: Progressing 08/15/2020 2140 by Grace Norris RN Outcome: Progressing Problem: Safety related to restraint use Goal: Absence of injury while restrained 08/15/20200 by Grace Norris RN Outcome: Progressing 08/15/2020 2140 by Grace Norris RN Outcome: Progressing * Grace Norris RN - 08/15/2020 9:40 PM CDT Problem: Fall Risk Goal: Fall risk and fall related injury risk are minimized (interventions related to the fall risk can be found in the flowsheet documentation) Outcome: Progressing Problem: Seizures Goal: Seizures are under control or absent Outcome: Progressing Problem: SEIZURE EVENT MONITORING Goal: To record an episode to determine whether or not the episode is a seizure. Outcome: Progressing Problem: Safety related to restraint use Goal: Absence of injury while restrained Outcome: Progressing * Esperanza Good RN - 08/15/2020 4:54 PM CDT Pt back in room from [facility]. * Esperanza Good RN - 08/15/2020 4:00 PM CDT Pt transported off the floor to [facility]. * Jose M Gomez RN - 08/15/2020 1:57 PM CDT Case Management Progress Note Anticipated level of care at discharge: [facility] - Medicaid Discharge Plan: Patient is new to my service. Discharge needs dependent on response to clinical treatment and therapy recommendations. CM will continue to follow. Will likely return to [facility] at discharge. Basic Needs Assessment (BNA) Score: 8 Anticipated Discharge Date: Anticipated Discharge Date: 08/16/20 Transportation at Discharge: Medicaid Provider Transportation to MD:other(facility transportation) Equipment at Home: Equipment At Home: Walker-4 Wheeled with Seat Additional DME needed: Hunger Screening: Medication affordability concerns: No Auth Number (if required) NH: DME: Medications: Transportation: Name: Jose M Gomez RN Phone: [phone] * Jase Richmond MD - 08/15/2020 10:23 AM CDT General Neurology Progress Note Mojgan Tabor Age: [age] year old Date of : 1960 Date of Admission: 08/13/2020 Hospital Day: 2 Subjective Brief HPI: 60 year old??man with??PMH of alcohol abuse, and head injury,??post-stroke epilepsy who was broughtto ER by EMS for increase in seizure frequency. ?? PRIOR HISTORY: Age of onset at 50-year-old. ?? Clinical semiology described as (Aura) tingling sensation over the right side, (Ictus #1) brief dyscognitive events, and (Ictus #2) focal seizures with secondary generalization, tongue bites. ? - Initially was taking Levetiracetam 1500 mg BID, with seizure being controlled but had multiple seizures in 09/2017, in the setting of missed dosage. ??The seizures clustered, and was difficult to control. ?Later, his Levetiracetam was increased and Depakote was added. ?He does have erratic compliance at times, but still has breakthrough seizures even with good compliance, with breakthough event with Levetiracetam 2000 mg BID and Depakote DR 500 mg BID. Initiated Oxcarbazepine with improved seizure control, but had symptomatic hyponatremia. ??Tried substituting Aptiom for Oxcarbazepine,but stopped Depakote instead. ??Symptomatic hyponatremia. ??Given confusion, asked to stop both Apti om and Oxcarbazepine for the time being but had generalized covulsions occurred in 01/24/2018, whichresulted in ER visit. ??Provided Vimpat as alternative. ?? - Seizures controlled until 04/2019, until had repetitive seizures and status epilepticus. ??Etiology suspected due to poor compliance. ??Had refractory status epilepticus, and AEDs was increased upon discharges. ??Took about 2 months to return to baseline. ??Repeated MRI Brain in 05/2019 showed resolution of hypersignal changes. ?? Patient's sister was concerned about drowsiness with his medication regimen so vimpat was slowly tapered off to 200/200 and was kept on Depakote DR 750 mg TID and Keppra 2000 mg BID. ?? Per last visit with Dr. Raymundo he was supposed to be on Keppra 2000 mg BID, Depakote 750 mg BID and Vimpat 200 mg BID but he mentions that he has just been taking keppra 2000 mg BID, depakote 250 mg BID and Vimpat 100 mg BID. He mentions that his medicine was decreased by his nurses nearly a month ago and since then he has been having more seizure episodes. Reportedly he has been 1 seizure episode every 2 days for last 1 month. Today he had one seizure atfacility which was witnessed by his room mates. EMS was called and he had around 3 seizures lasting1 minute each which are described as GTC with no bladder or bowel incontinence and no post ictal confusion. ?? He mentions that he had multiple falls in last month due to seizures and has also hit his head multiple times. ?? Denies any excessive drowsiness due to AEDs, Denies having fever, cough, SOB or any other signs of infection. Denies having any other focal weakness. Interval History: Since yesterday, he continues to have multiple clinical and subclinical episodes originating from Rt cerebral hemisphere. He received one dose of ativan 2 mg yesterday which decreased the frequency initially but later he kept on having subclinical seizures. This morning, he appeared to have Rt arm Stiffness with left gaze preference which resolved in 1 minute. He was less responsive during the episode but came back to baseline quickly. Previously he used to have left arm stiffness but no Right arm stiffness has been observed previously. Objective Patient Vitals for the past 24 hrs: BP Temp Temp src Pulse Resp SpO2 08/15/20 0801 147/87 97.8 ??F (36.6 ??C) Oral 73 16 98 % 08/15/20 0411 122/76 97.4 ??F (36.3 ??C) Axillary 68 18 99 % 08/14/20 2342 120/85 97.3 ??F (36.3 ??C) Oral 69 18 99 % 08/14/20 2056 132/89 97.6 ??F (36.4 ??C) Oral 83 18 99 % 08/14/20 1532 111/73 97.4 ??F (36.3 ??C) -- 76 18 98 % Intake/Output Summary (Last 24 hours) at 08/15/2020 1024 Last data filed at 08/15/2020 1007 Gross per 24 hour Intake 653.18 ml Output 600 ml Net 53.18 ml Exam: Cortical Function Mental Status Awake, alert, follows commands Orientation Person, place, time, and situation Language Fluency intact, comprehension intact, repetition intact Visual Ivan Intact bilaterally to confrontation Neglect Has left hemineglect ?? Cranial Nerves II Pupils 5 mm and bilaterally reactive to light. Fundoscopic exam not performed. VIII Hearing is intact bilaterally to finger rub. III/IV/ Extraocular muscles intact. No diplopia, ptosis, nystagmus or convergence abnormalities noted. IX/X Palate elevated symmetrically without phonation abnormalities noted. V Facial sensation symmetric to light touch and intact bilaterally. Corneal reflex not examined. XIHead turning and shoulder shrug are intact. VII Mild Left facial droop. XII Tongue is midline with normal movements and no atrophy noted. ?? Motor Function Movement No abnormalities noted Bulk No abnormalities noted Tone Spasticity in left lower extremity. ? Proximal Upper Distal Upper Proximal Lower Distal Lower Right 5/5 5/5 5/5 5/5 Left 4/5 4/5 4/5 4/5 ?? Muscle Stretch Reflexes ?? BI TRI BR PAT ACH TOES Right 2 2 2 2 2 Down Left 3 3 2 3 3 Up ?? Sensory Light Touch Symmetric and intact bilaterally Noxious Stimuli Symmetric and intact bilaterally Temperature Not tested Pallesthesia Not tested ?? Cerebellar ?? FNF FREEDOM HKS Right EARNEST Deferred EARNEST Left EARNEST Deferred EARNEST ?? Gait Deferred Labs: Recent Labs Component Name 08/14/20 0600 08/13/20 1558 07/18/19 1139 WBC 8.7 7.3 6.0 RBC 4.77 4.67 4.61 HGB 15.5 15.1 14.5 HCT 46.0 44.7 43.9 Recent Labs Component Name 08/15/20 0810 08/14/20 0600 08/13/20 1700 NA 142 146* 146* CL 107 110* 112* CO2 25 23 22 BUN 15 14 13 CREATININE 0.8 1.0 1.0 CALCIUM 8.9 9.3 9.4 No results for input(s): MG in the last 17089 hours. Recent Labs Component Name 08/14/20 0600 05/16/19 1151 05/15/19 0911 PHOS 3.2 2.7 3.0 Recent Labs Component Name 07/18/19 1139 04/11/15 0622 PT 12.9 12.1 INR 1.0 0.9 No results for input(s): A1C in the last 25574 hours. Recent Labs Component Name 04/11/15 0622 CHOL 196 HDL 81 LDLCALC 102* TRIG 63 Recent Labs Component Name 05/15/19 1652 TSH 1.344 Recent Labs Component Name 05/15/19 0911 05/14/19 2152 05/13/19 2030 01/24/19 0154 CKTOTAL 63 - - 127 TROPONINI <0.010 <0.010 0.012 - EEG VIDEO MONITORING 2019: IMPRESSION This is an abnormal cEEG due [...] was identified at 09:33 AM on 05/11/2019. MOST RECENT cEEG READ: IMPRESSION This is an abnormal cEEG due to 1) frequent right focal electrographic seizures, 2) right sided slowing, 3) generalized slowing. ?? CLINICAL CORRELATION: From 08/14-08/15: This finding is consistent with right focal seizures with right hemisphere dysfunction on top of generalized encephalopathy, but is not specific to etiology. Assessment 60 year old??man with??PMH of alcohol abuse, and head injury,??post-stroke epilepsy who was broughtto ER by EMS for increase in seizure frequency. ?? His seizure frequency is increased likely due to inadequate AED regimen. There is also a possibility of questionable compliance. After restarting home regimen, he still appears to have frequent clinical and subclinical seizures. He had left gaze preference with Right arm stiffness this morning. Left gaze preference has been consistent with his prior seizure semiology but Rt arm stiffness without any significant stiffness on left side had been a new finding. Considering his seizures were well controlled previously and have been worse since last 1 month with more worsening during last 3 days, it would be reasonable to get MRI brain Wo contrast to look for new stroke. His Platelet count on presentation was 97 with fall to 74 yesterday. Heparin dose was given after the first CBC was take. There is a possibility of HIT but 4T score is currently 1 which shows < 5 percent chance of HIT. Will hold the morning dose and repeat CBC in the afternoon to make sure Platelet count is stable or getting better. Valproic acid may also be contributing to platelet dysfunction vs clumping. May need discontinuation of Depakote if platelets continue to fall. Plan # Focal seizures with secondary generalization + Subclinical seizures: - Continue Keppra 2000 mg BID - Continue Depakote 750 mg BID. Will load with Depakote 1500 mg IV as level today was less than 13. - Continue Vimpat 200 mg BID. - Continue Klonopin 1 mg TID. - Ativan 2 mg x 1 if Seizure > 5 mins. - Keep cEEG for now until seizure free. - Will get MRI brain WO contrast to look for new stroke. #Hypovolemic hypernatremia - Corrected: - Continue NS @ 75 ml/hr for another 24 hours for hypovolemic hypernatremia. #Secondary stroke prevention: - Continue Aspirin + Lipitor 40 mg QD. #HTN: - Continue Amlodipine 5 mg # Thrombocytopenia: - Unlikely HIT. - Hold heparin for now. - Check Heparin Induced Antibody. - May have to stop Depakote if platelets continue to fall. Case findings discussed with Dr. Siddhartha De Paz, Attending physician. Jase Richmond MD PGY-2 Neurology Resident Associated attestation - Baldev Carl MD - 08/15/2020 1:31 PM CDT NEUROLOGY ATTENDING NOTE The patient seen and examined with resident, I reviewed the history on rounds,examined and discussed with residents on General Neurology Team. I have reviewed and agree with resident note except as noted below: Summary: Patient is 60 year old male with a history of a right hemispheric stroke with left-sided neglect. He developed seizures after stroke. He has been on Keppra, Depakote, Vimpat and recently started on Klonopin.. He did receive 1 dose of Ativan overnight. He reports no neurologic Current Facility-Administered Medications Medication Dose Route Frequency Provider Last Rate Last Admin 0.9% NaCl infusion Intravenous Continuous Jase Richmond MD 75 mL/hr at 08/15/2024 New Bag at 08/15/2024 0.9% NaCl injection 3 mL 3 mL Intracatheter q8h Jase Richmond MD 3 mL at 08/15/20 0512 And 0.9% NaCl injection 1-10 mL 1-10 mL Intracatheter PRN Jase Richmond MD acetaminophen (TYLENOL) tablet 500 mg 500 mg Oral q4h PRN Antionette Ya MD 500 mg at 08/15/20 05 amLODIPine (NORVASC) tablet 5 mg 5 mg Oral QDAY Jase Richmond MD 5 mg at 08/15/20922 aspirin chew tablet 81 mg 81 mg Oral QDAY Jase Richmond MD 81 mg at 08/15/20922 atorvastatin (LIPITOR) tablet 40 mg 40 mg Oral AT BEDTIME Jase Richmond MD 40 mg at 08/14/202022 clonazePAM (KlonoPIN) tablet 1 mg 1 mg Oral TID Jase Richmond MD 1 mg at 08/15/[address] (DEPAKOTE) tablet 750 mg 750 mg Oral BID Jase Richmond MD 750 mg at 08/15/20922 folic acid (FOLVITE) tablet 1 mg 1 mg Oral QDAY Germain Cardoza MD 1 mg at 08/15/20931 lacosamide (VIMPAT) tablet 200 mg 200 mg Oral BID Jase Richmond MD 200 mg at 08/15/20921 levETIRAcetam (KEPPRA) tablet 2,000 mg 2,000 mg Oral BID Jase Richmond MD 2,000 mg at 08/15/20921 multivitamin daily tablet 1 tablet 1 tablet Oral QDAY Germain Cardoza MD 1 tablet at 08/15/2032 thiamine (Vitamin B-1) tablet 100 mg 100 mg Oral QDAY Germain Cardoza MD 100 mg at 08/15/2032 No Known Allergies Past Medical History: Diagnosis Date CVA (cerebral vascular accident) HTN (hypertension) Seizure No past surgical history on file. Social History Tobacco Use Smoking status: Former Smoker Packs/day: 1.00 Years: 15.00 Pack years: 15.00 Smokeless tobacco: Never Used Substance Use Topics Alcohol use: No Comment: last drink 2015 Drug use: No Comment: occasional c Exam findings Vitals: 08/14/20 2342 08/15/20 0411 08/15/20 0801 08/15/20 1201 BP: 120/85 122/76 147/87 136/72 Pulse: 69 68 73 76 Resp: Temp: 97.3 ??F (36.3 ??C) 97.4 ??F (36.3 ??C) 97.8 ??F (36.6 ??C) 98.8 ??F (37.1 ??C) SpO2: 99% 99% 98% 98% Weight: Height: Please see resident note for details on labs, radiology and ancillary testing. Lab Review Recent Labs Component Name 08/14/20 0600 08/13/20 1558 07/18/19 1139 WBC 8.7 7.3 6.0 HGB 15.5 15.1 14.5 HCT 46.0 44.7 43.9 PLTCOUNT 74* 97* 156 Recent Labs Component Name 08/15/20 0810 08/13/20 1700 08/13/20 1700 POTASSIUM 4.0 - 4.5 CO2 25 - 22 BUN 15 - 13 CREATININE 0.8 - 1.0 GLUCOSE 79 - 104 CALCIUM 8.9 - 9.4 ALKPHOS - - 64 ALT - - 11 AST - - 21 EGFR >60 - >60 - = values in this interval not displayed. Recent Labs Component Name 04/11/15 0622 CHOL 196 TRIG 63 HDL 81 LDLCALC 102* Recent Labs Component Name 05/12/19 0542 04/11/15 0622 HGBA1C 5.5 5.3 EEG IMPRESSION This is an abnormal cEEG due to 1) frequent right focal electrographic seizures, 2) right sided slowing, 3) generalized slowing. CLINICAL CORRELATION: From 08/14-08/15: This finding is consistent with right focal seizures with right hemisphere dysfunction on top of generalized encephalopathy, but is not specific to etiology. CT head IMPRESSION: 1.No acute intracranial hemorrhage, midline shift, or significant mass effect 2.Generalized volume loss, chronic infarcts and nonspecific white matter changes, likely vascular related. 3.There is a polypoid mucosal thickening within the right maxillary sinus, increased in size compared to the prior CT from 01/14/2019. Findings could be inflammatory, represent nasal polyposis however underlying lesion cannot be excluded. Clinical correlation/ENT consult is recommended. Medical Decision Making: IMPRESSION/PLAN Active Hospital Problems Diagnosis Date Noted Seizures 08/13/2020 Priority: Not Prioritized Continue current medications Continue continuous EEG monitoring. MRI brain to evaluate for any new lesions that may be contributing to symptoms ENT will see the patient as an outpatient for his maxillary sinus lesion. Time spent: I spent a total of 30 minutes reviewing chart, rounding with general neurology team, and face to face with this patient in the coordination of care. * Grace Norris RN - 08/14/2020 9:44 PM CDT Problem: Fall Risk Goal: [...] episode is a seizure. Outcome: Progressing * Angelina Pereira RN - 08/14/2020 12:59 PM CDT A Chart Review has been conducted by Case Management. Anticipated level of care at discharge: [facility] - Medicaid Discharge Plan: return to [facility] when ready - sister is agreeable for pt to return there Basic Needs Assessment (BNA) Score: 8 Anticipated Discharge Date: 08/16/20 PCP: Misael Maradiaga, DO Per nursing assessments: mod assist Transportation at discharge: Medicaid Provider Transportation (who): Quantitative Software Engineer/Support: sister Adriane [phone] Quantitative Software Engineer person: Home/Functional Status: Equipment with patient: None Assistive Devices: None ?. CM spoke with pt's sister by phone. She is agreeable for pt to return to his facility - [facility]. Sister stated they may be able to provide transportation back. SW consulted for NH return. Will continue to follow. For any questions or needs please contact: Mine Captain Name/Phone number: Angelina Pereira RN [phone] * Duarte Coronado DO - 08/14/2020 9:21 AM CDT ENT Plan of Care Note ENT jammiebsfrances consulted from neurology. Patient is a 60 yo male admitted to the neurology service for seizure workup. 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 -Images reviewed with ENT team. -Recommend f/u outpatient clinic 1 week from discharge with Dr. Larsen or John. Duarte Coronado DO 08/14/2020 9:25 AM * Mandi Chambers - 08/14/2020 12:38 AM CDT 08/13/20 2329 Seizure Activity Psychomotor Symptoms Behavior pause Deviation Eyes left;Head left Motor Component Stiff (tonic);Right;Left;Arm;Jerking (clonic) Able to State Recall Items No Speech clear Oriented Yes Able to follow commands Yes Duration of Seizure Duration 1 minute Seizure Assessment Lowest SPO2 Range % 84 Interventions Interventions Notified MD;Medication Post Seizure Condition Post Seizure Assessment A Pt experiencing repetitive seizure like activity between 2330 and 0020. Pt's body tenses and arms stiffen and twitch. Head and eyes deviate left or right inconsistently. Pt's seizure like activity last for about a minute, post ictal returns to baseline immediately. Pt experienced more than 6 of these events over this time period. MD notified and 4 mg of ativan given, 2 mg at 2344 and 0011. MD to bedside for evaluation. Mandi Chambers RN documented in this encounter H&P Notes * Jase Richmond MD - 08/13/2020 4:32 PM CDT Neurology History & Physical Patient: Mojgan Tabor Age: [age] year old Admission Date and Time: 08/13/2020 Reason for consult/Chief Complaint: History of Presenting Illness: 60 year old man with PMH of alcohol abuse, and head injury, post-stroke epilepsy who was brought toER by EMS for increase in seizure frequency. PRIOR HISTORY: Age of onset at 50-year-old. Clinical semiology described as (Aura) tingling sensation over the right side, (Ictus #1) brief dyscognitive events, and (Ictus #2) focal seizures with secondary generalization, tongue bites. ?? - Initially was taking Levetiracetam 1500 mg BID, with seizure being controlled but had multiple seizures in 09/2017, in the setting [...] substituting Aptiom for Oxcarbazepine, but stoppedDepakote instead. Symptomatic hyponatremia. Given confusion, asked to stop both Aptiom and Oxcarbazepine for the time being but had generalized covulsions occurred in 01/24/2018, which resulted in ER visit. Provided Vimpat as alternative. ?? - Seizures controlled until 04/2019, until had repetitive seizures and status epilepticus. Etiologysuspected due to poor compliance. Had refractory status epilepticus, and AEDs was increased upon discharges. Took about 2 months to return to baseline. Repeated MRI Brain in 05/2019 showed resolution of hypersignal changes. Patient's sister was concerned about drowsiness with his medication regimen so vimpat was slowly tapered off to 200/200 and was kept on Depakote DR 750 mg TID and Keppra 2000 mg BID. INTERVAL HISTORY: Per last visit with Dr. Raymundo he was supposed to be on Keppra 2000 mg BID, Depakote 750 mg BID and Vimpat 200 mg BID but he mentions that he has just been taking keppra 2000 mg BID, depakote 250 mg BID and Vimpat 100 mg BID. He mentions that his medicine was decreased by his nurses nearly a month ago and since then he has been having more seizure episodes. Reportedly he has been 1 seizure episode every 2 days for last 1 month. Today he had one seizure atfacility which was witnessed by his room mates. EMS was called and he had around 3 seizures lasting1 minute each which are described as GTC with no bladder or bowel incontinence and no post ictal confusion. He mentions that he had multiple falls in last month due to seizures and has also hit his head multiple times. Denies any excessive drowsiness due to AEDs, Denies having fever, cough, SOB or any other signs of infection. Denies having any other focal weakness. Past Medical History No history on file. Past Medical History: Diagnosis Date ??? CVA (cerebral vascular accident) ??? HTN (hypertension) ??? Seizure Allergies No Known Allergies Family History No family history on file. Social History Social History Social History Narrative ??? Not on file Review of Systems Negative except as above. Objective: BP 153/96 Pulse 76 Temp 97.5 ??F (36.4 ??C) (Axillary) Resp 18 Ht 5' 11 (1.803 m) Wt 149 lb (67.6 kg) SpO2 96% BMI 20.78 kg/m2 Temp (30hrs) Max:97.5 ??F (36.4 ??C) Body mass index is 20.78 kg/m??. Exam: Cortical Function Mental Status Awake, alert, follows commands Orientation Person, place, time, and situation Language Fluency intact, comprehension intact, repetition intact Visual Ivan Intact bilaterally to confrontation Neglect Has left hemineglect Cranial Nerves II Pupils 5 mm and bilaterally reactive to light. Fundoscopic exam not performed. VIII Hearing is intact bilaterally to finger rub. III/IV/ Extraocular muscles intact. No diplopia, ptosis, nystagmus or convergence abnormalities noted. IX/X Palate elevated symmetrically without phonation abnormalities noted. V Facial sensation symmetric to light touch and intact bilaterally. Corneal reflex not examined. XIHead turning and shoulder shrug are intact. VII Mild Left facial droop. XII Tongue is midline with normal movements and no atrophy noted. Motor Function Movement No abnormalities noted Bulk No abnormalities noted Tone Spasticity in left lower extremity. Proximal Upper Distal Upper Proximal Lower Distal Lower Right 4/5 4/5 4/5 4/5 Left 4/5 4/5 4/5 4/5 Muscle Stretch Reflexes BI TRI BR PAT ACH TOES Right 2 2 2 2 2 Down Left 2 2 2 3 3 Up Sensory Light Touch Symmetric and intact bilaterally Noxious Stimuli Symmetric and intact bilaterally Temperature Not tested Pallesthesia Not tested Cerebellar FNF FREEDOM HKS Right EARNEST Deferred EARNEST Left EARNEST Deferred EARNEST Gait Deferred EEG VIDEO MONITORING 2019: IMPRESSION This is an abnormal cEEG due [...] was identified at 09:33 AM on 05/11/2019. Assessment and Recommendations: 60 year old man with PMH of alcohol abuse, and head injury, post-stroke epilepsy who was brought toER by EMS for increase in seizure frequency. His seizure frequency is increased likely due to inadequate AED regimen. There is also a possibility of questionable compliance. Will also get Basic labs to look for any other provoking factor. Recommendations: - Continue Keppra 2000 mg BID, Depakote DR 750 mg BID and Vimpat 200 mg BID. - Check levels of Keppra, depakote and Vimpat. (Patient had compliance issues in the past). - Will start Klonopin 1 mg TID - Start cEEG. - Ativan 2mg x 1 for Seizure lasting > 5 minutes. - Patient will be admitted to Neurology. Discussed with Attending Physician, MD Jase Arriola MD Neurology Resident, PGY-2 Associated attestation - Baldev Carl MD - 08/14/2020 2:23 PM CDT NEUROLOGY ATTENDING NOTE The patient seen and examined with resident, I reviewed the history on rounds,examined and discussed with residents on General Neurology Team. I have reviewed and agree with resident note except as noted below: Summary: Patient is 60 year old male with a history of a right parieto-occipital stroke. He has a history ofseizures. He had been on Keppra 1500 mg twice a day, Depakote 750 mg twice a day and Vimpat 200 mg twice a day. He was admitted with seizures. Please see resident note for details. Current Facility-Administered Medications Medication Dose Route Frequency Provider Last Rate Last Admin 0.9% NaCl infusion Intravenous Continuous Jase Richmond MD 75 mL/hr at 08/14/20 0934 New Bag at 08/14/20 0934 0.9% NaCl injection 3 mL 3 mL Intracatheter q8h Jase Richmond MD 3 mL at 08/14/20 1339 And 0.9% NaCl injection 1-10 mL 1-10 mL Intracatheter PRN Jase Richmond MD acetaminophen (TYLENOL) tablet 500 mg 500 mg Oral q4h PRN Antionette Ya MD 500 mg at 08/13/20 2329 amLODIPine (NORVASC) tablet 5 mg 5 mg Oral QDAY Jase Richmond MD 5 mg at 08/14/20 0927 aspirin chew tablet 81 mg 81 mg Oral QDAY Jase Richmond MD 81 mg at 08/14/20 09 atorvastatin (LIPITOR) tablet 40 mg 40 mg Oral AT BEDTIME Jase Richmond MD 40 mg at 03/17/21 2047 clonazePAM (KlonoPIN) tablet 1 mg 1 mg Oral TID Jase Richmond MD 1 mg at 08/14/[address] (DEPAKOTE) tablet 750 mg 750 mg Oral BID Jase Richmond MD 750 mg at 08/14/20 09 heparin injection 5,000 Units 5,000 Units Subcutaneous q8h Jase Richmond MD 5,000 Units at 08/14/20 09 lacosamide (VIMPAT) tablet 200 mg 200 mg Oral BID Jase Richmond MD 200 mg at 08/14/20 09 levETIRAcetam (KEPPRA) tablet 2,000 mg 2,000 mg Oral BID Jase Richmond MD LORazepam (ATIVAN) injection ADS Med No Known Allergies Past Medical History: Diagnosis Date CVA (cerebral vascular accident) HTN (hypertension) Seizure No past surgical history on file. Social History Tobacco Use Smoking status: Former Smoker Packs/day: 1.00 Years: 15.00 Pack years: 15.00 Smokeless tobacco: Never Used Substance Use Topics Alcohol use: No Comment: last drink 2015 Drug use: No Comment: occasional Exam findings Vitals: 08/13/20 2034 08/14/20 0007 08/14/20 0342 08/14/20 0810 BP: 152/93 134/92 130/85 119/86 Pulse: 82 90 73 82 Resp: Temp: 97.9 ??F (36.6 ??C) 97.7 ??F (36.5 ??C) 98.4 ??F (36.9 ??C) 97.7 ??F (36.5 ??C) SpO2: 98% 97% 98% 97% Weight: Height: Awake Follows simple commands Left-sided neglect Left facial droop Mild left hemiparesis Please see resident note for details on labs, radiology and ancillary testing. Lab Review Recent Labs Component Name 08/14/20 0600 08/13/20 1558 07/18/19 1139 WBC 8.7 7.3 6.0 HGB 15.5 15.1 14.5 HCT 46.0 44.7 43.9 PLTCOUNT 74* 97* 156 Recent Labs Component Name 08/14/20 0600 08/13/20 1700 POTASSIUM 4.4 4.5 CO2 23 22 BUN 14 13 CREATININE 1.0 1.0 GLUCOSE 79 104 CALCIUM 9.3 9.4 ALKPHOS - 64 ALT - 11 AST - 21 EGFR >60 >60 Recent Labs Component Name 04/11/15 0622 CHOL 196 TRIG 63 HDL 81 LDLCALC 102* Recent Labs Component Name 05/12/19 0542 04/11/15 06[address]BA[address]C 5[address] head IMPRESSION: 1.No acute intracranial hemorrhage, midline shift, or significant mass effect 2.Generalized volume loss, chronic infarcts and nonspecific white matter changes, likely vascular related. 3.There is a polypoid mucosal thickening within the right maxillary sinus, increased in size compared to the prior CT from 01/14/2019. Findings could be inflammatory, represent nasal polyposis however underlying lesion cannot be excluded. Clinical correlation/ENT consult is recommended. Medical Decision Making: IMPRESSION/PLAN Active Hospital Problems Diagnosis Date Noted Seizures 08/13/2020 Priority: Not Prioritized Restart seizure medications. Continuous EEG. ENT consult for maxillary sinus lesion. Time spent: I spent a total of 55 minutes reviewing chart, rounding with general neurology team, and face to face with this patient in the coordination of care. documented in this encounter Procedure Notes * Sean Raymundo, DO - 08/21/2020 7:15 AM CDT [facility] EEG REPORT Patient Name: Mojgan Tabor EEG#: [id number] Recording Start Time: 10:36 AM 08/14/2020 Epoch Start Time: 05:00 AM 08/20/2020 Epoch Stop Time: 13:00 PM 08/21/2020 Clinical History: Mojgan Tabor is a 60 year old male with break through seizures. This continuous video EEG monitoring is ordered to evaluate for seizures in the setting of altered mental status. Current medications Current Facility-Administered Medications Medication ??? 0.9% NaCl injection 3 mL And ??? 0.9% NaCl injection 1-10 mL ??? acetaminophen (TYLENOL) tablet 500 mg ??? amLODIPine (NORVASC) tablet 5 mg ??? aspirin chew tablet 81 mg ??? atorvastatin (LIPITOR) tablet 40 mg ??? cefTRIAXone (Rocephin) syringe 2,000 mg ??? clonazePAM (KlonoPIN) tablet 2 mg ??? divalproex DR (DEPAKOTE) tablet 1,000 mg ??? enoxaparin (LOVENOX) injection 40 mg ??? folic acid (FOLVITE) tablet 1 mg ??? lacosamide (VIMPAT) tablet 200 mg ??? levETIRAcetam (KEPPRA) tablet 2,000 mg ??? multivitamin daily tablet 1 tablet ??? thiamine (Vitamin B-1) tablet 100 mg Description This is a continuous video EEG monitoring is 21-channels; consisting of 20 channels of EEG obtainedfrom electrodes placed on the scalp according to the international 10-20 system, T1 and T2 electrodes, and one channel of EKG monitoring. Background: Epoch Start Time: 10:36 AM 08/14/2020 Epoch Stop Time: 05:00 AM 08/15/2020 The background was asymmetric. No well-developed posterior dominant rhythm was identified. Anterior-posterior gradient was sparse. The background was continuous and consisted of generalized poorly-organized admixed polymorphic theta and delta frequency activity with lower frequencies on the right side. Variability was present. Reactivity was present. Normal sleep architecture was seen. Frequent right focal seizures were noted throughout this recording (started after 13:00 PM on 08/14/2020). These seizures were coming every about 2 minutes and each lasted for about 1 minute on average (18-20 seizures per hour on average), and consisted of a of right sided polymorphic semi-rhythmic spikes and sharp waves of 10-15 Hz in frequency that evolved in frequency and sometimes spread to involve the left cerebral hemisphere. No clear clinical symptoms were noted in association with the electrographic seizures. Activation procedures were not performed. Epoch Start Time: 05:00 AM 08/15/2020 Epoch Stop Time: 05:00 AM 08/16/2020 The recording was discontinued from 15:53 PM to 18:26 PM on 08/15/2020 The background was asymmetric. No well-developed posterior dominant rhythm was identified. Anterior-posterior gradient was sparse. The background was continuous and consisted of generalized poorly-organized admixed polymorphic theta and delta frequency activity with lower frequencies on the right side. Variability was present. Reactivity was present. Normal sleep architecture was seen. Frequent right focal seizures were noted throughout this recording (started after 13:00 PM on 08/14/2020). These seizures were coming every about 2 minutes and each lasted for about 1 minute on average (18-20 seizures per hour on average), and consisted of a of right sided polymorphic semi-rhythmic spikes and sharp waves of 10-15 Hz in frequency that evolved in frequency and sometimes spread to involve the left cerebral hemisphere. Clinically, the seizures characterized by left gaze deviation, head turn to the left and jerky movements of the left arm. At around 12:00 PM on 08/15/2020, the seizures stopped, to restart again at around 14:30 PM with fluctuating seizure rate over time from 8-9 to 18-20 seizures per hour. Activation procedures were not performed. Epoch Start Time: 05:00 AM 08/16/2020 Epoch Stop Time: 05:00 AM 08/17/2020 The background was asymmetric. No well-developed posterior dominant rhythm was identified. Anterior-posterior gradient was sparse. The background was continuous and consisted of generalized poorly-organized admixed polymorphic theta and delta frequency activity with lower frequencies on the right side. Variability was present. Reactivity was present. Normal sleep architecture was seen. Frequent right focal seizures were noted throughout this recording (started after 13:00 PM on 08/14/2020). On average, these seizures were coming every about 2 minutes and each lasted for about 1 minute on average (18-20 seizures per hour on average), and consisted of a of right sided polymorphic semi-rhythmic spikes and sharp waves of 10-15 Hz in frequency that evolved in frequency and sometimes spread to involve the left cerebral hemisphere. Clinically, the seizures characterized by left gaze deviation, head turn to the left and jerky movements of the left arm. At the beginning of this recording, the seizures were nearly continuous. Seizures started to slow down in frequency and duration around 11:00 AM and stopped completely before 12:00 PM on 08/16/2020. The seizures restarted at around 15:30 PM with fluctuating seizure rate over time from 3-4 to 16-24 se izures per hour. From 03:00 AM to 05:00 AM on 08/17/2020, only one seizures was noted at 04:36 AM. Activation procedures were not performed. Epoch Start Time: 05:00 AM 08/16/2020 Epoch Stop Time: 05:00 AM 08/17/2020 The background was asymmetric. No well-developed posterior dominant rhythm was identified. Anterior-posterior gradient was sparse. The background was continuous and consisted of generalized poorly-organized admixed polymorphic theta and delta frequency activity with lower frequencies on the right side. Variability was present. Reactivity was present. Normal sleep architecture was seen. Frequent right focal seizures were noted throughout this recording (started after 13:00 PM on 08/14/2020). On average, these seizures were coming every about 2 minutes and each lasted for about 1 minute on average (18-20 seizures per hour on average), and consisted of a of right sided polymorphic semi-rhythmic spikes and sharp waves of 10-15 Hz in frequency that evolved in frequency and sometimes spread to involve the left cerebral hemisphere. Clinically, the seizures characterized by left gaze deviation, head turn to the left and jerky movements of the left arm. At the beginning of this recording, the seizures were nearly continuous. Seizures started to slow down in frequency and duration around 11:00 AM and stopped completely before 12:00 PM on 08/16/2020. The seizures restarted at around 15:30 PM with fluctuating seizure rate over time from 3-4 to 16-24 se izures per hour. From 03:00 AM to 05:00 AM on 08/17/2020, only one seizures was noted at 04:36 AM. Activation procedures were not performed. Epoch Start Time: 05:00 AM 08/17/2020 Epoch Stop Time: 13:00 PM 08/18/2020 The background was asymmetric. No well-developed posterior dominant rhythm was identified. Anterior-posterior gradient was sparse. The background was continuous and consisted of generalized poorly-organized admixed polymorphic theta and delta frequency activity with lower frequencies on the right side. Variability was present. Reactivity was present. Normal sleep architecture was seen. Frequent right focal seizures were noted throughout this recording (started after 13:00 PM on 08/14/2020). These seizures consisted of a of right sided polymorphic semi-rhythmic spikes and sharp wavesof 10-15 Hz in frequency that evolved in frequency and sometimes spread to involve the left cerebral hemisphere. Clinically, the seizures characterized by left gaze deviation, head turn to the left and jerky movements of the left arm. Seizure Frequency (05:00 AM 08/17 - 05:00 AM 08/18) 05:00 - 06:00: 19 Seizures 06:00 - 07:00: 18 Seizures 07:00 - 08:00: 17 Seizures 08:00 - 09:00: 11 Seizures 09:00 - 10:00: 2 Seizures 10:00 - 11:00: No Seizures 11:00 - 12:00: 9 Seizures 12:00 - 13:00: 14 Seizures 13:00 - 14:00: 8 Seizures 14:00 - 15:00: No Seizures 15:00 - 16:00: 16 Seizures 16:00 - 16:30: 7 Seizures 16:31 - 18:20: No seizures 18:21 - 05:00: 6 Seizures (last noted seizure at 21:13 PM on 08/17/2020) Activation procedures were not performed. Epoch Start Time: 05:00 AM 08/18/2020 Epoch Stop Time: 05:00 AM 08/19/2020 The background was asymmetric. No well-developed posterior dominant rhythm was identified. Anterior-posterior gradient was sparse. The background was continuous and consisted of generalized poorly-organized admixed polymorphic theta and delta frequency activity with lower frequencies on the right side. Variability was present. Reactivity was present. Normal sleep architecture was seen. Four right focal seizures were noted at the beginning of this recording at 05:14 AM, 05:17 AM, 05:25 AM and 05:32 AM on 08/18/2020. These seizures consisted of a of right sided polymorphic semi-rhythmic spikes and sharp waves of 10-15 Hz in frequency that evolved in frequency and sometimes spread toinvolve the left cerebral hemisphere. Clinically, the seizures characterized by left gaze deviation, head turn to the left and jerky movements of the left arm. Frequent right sided spikes and sharp waves were noted during this recording. Activation procedures were not performed. Epoch Start Time: 05:00 AM 08/19/2020 Epoch Stop Time: 05:00 AM 08/20/2020 The recording was discontinued from 07:55 AM to 08:29 AM on 08/19/2020 The background was asymmetric. No well-developed posterior dominant rhythm was identified. Anterior-posterior gradient was sparse. The background was continuous and consisted of generalized poorly-organized admixed polymorphic theta and delta frequency activity with lower frequencies on the right side. Variability was present. Reactivity was present. Normal sleep architecture was seen with sleep spindles and K-complexes. Occasional right sided spikes and sharp waves were noted during this recording. Activation procedures were not performed. Epoch Start Time: 05:00 AM 08/20/2020 Epoch Stop Time: 05:00 AM 08/21/2020 The recording was discontinued from 09:58 AM to 10:59 AM on 08/20/2020 The background was asymmetric. No well-developed posterior dominant rhythm was identified. Anterior-posterior gradient was sparse. The background was continuous and consisted of generalized poorly-organized admixed polymorphic theta and delta frequency activity with lower frequencies on the right side. Variability was present. Reactivity was present. Normal sleep architecture was seen with attenuation of the background and few sleep spindles. Rare right sided spikes and sharp waves were noted during this recording. Activation procedures were not performed. EKG was observed throughout the recording. IMPRESSION This is an abnormal cEEG due to 1) right focal electrographic seizures (resolved), 2) occasional right sided spikes and sharp waves, 3) right sided slowing, 4) generalized slowing. CLINICAL CORRELATION: From 08/14-08/17: This finding is consistent with right focal seizures with right hemisphere dysfunction on top of generalized encephalopathy, but is not specific to etiology. From 08/17-08/18: This finding is consistent with decreased frequency of right focal seizures (last noted seizure at 21:13 PM on 08/17/2020) with right hemisphere dysfunction on top of generalized encephalopathy, but is not specific to etiology. From 08/18-08/20: This finding is consistent with resolution of right focal seizures (last noted seizure at 05:32 AM on 08/18/2020) with right hemisphere increased cortical irritability and dysfunction on top of generalized encephalopathy, but is not specific to etiology. From 08/20-08/21: This finding is consistent with resolution of right focal seizures (last noted seizure at 05:32 AM on 08/18/2020) with right hemisphere dysfunction on top of generalized encephalopathy, but is not specific to etiology. Arlen Arguelles MD Clinical Neurophysiology Fellow 08/21/2020 I personally reviewed this study in its entirety and formulated the above report. Sean Raymundo DO * Sean Raymundo DO - 08/20/2020 8:44 AM CDT [facility] EEG REPORT Patient Name: Mojgan Tabor EEG#: [id number] Recording Start Time: 10:36 AM 08/14/2020 Epoch Start Time: 05:00 AM 08/19/2020 Epoch Stop Time: 05:00 AM 08/20/2020 Clinical History: Mojgan Tabor is a 60 year old male with break through seizures. This continuous video EEG monitoring is ordered to evaluate for seizures in the setting of altered mental status. Current medications Current Facility-Administered Medications Medication ??? 0.9% NaCl injection 3 mL And ??? 0.9% NaCl injection 1-10 mL ??? 0.9% NaCl IV Bolus ??? acetaminophen (TYLENOL) tablet 500 mg ??? amLODIPine (NORVASC) tablet 5 mg ??? aspirin chew tablet 81 mg ??? atorvastatin (LIPITOR) tablet 40 mg ??? clonazePAM (KlonoPIN) tablet 2 mg ??? divalproex DR (DEPAKOTE) tablet 1,000 mg ??? enoxaparin (LOVENOX) injection 40 mg ??? folic acid (FOLVITE) tablet 1 mg ??? lacosamide (VIMPAT) tablet 200 mg ??? levETIRAcetam (KEPPRA) tablet 2,000 mg ??? multivitamin daily tablet 1 tablet ??? nitrofurantoin monohyd macro crystals (Macrobid) capsule 100 mg ??? thiamine (Vitamin B-1) tablet 100 mg Description This is a continuous video EEG monitoring is 21-channels; consisting of 20 channels of EEG obtainedfrom electrodes placed on the scalp according to the international 10-20 system, T1 and T2 electrodes, and one channel of EKG monitoring. Background: Epoch Start Time: 10:36 AM 08/14/2020 Epoch Stop Time: 05:00 AM 08/15/2020 The background was asymmetric. No well-developed posterior dominant rhythm was identified. Anterior-posterior gradient was sparse. The background was continuous and consisted of generalized poorly-organized admixed polymorphic theta and delta frequency activity with lower frequencies on the right side. Variability was present. Reactivity was present. Normal sleep architecture was seen. Frequent right focal seizures were noted throughout this recording (started after 13:00 PM on 08/14/2020). These seizures were coming every about 2 minutes and each lasted for about 1 minute on average (18-20 seizures per hour on average), and consisted of a of right sided polymorphic semi-rhythmic spikes and sharp waves of 10-15 Hz in frequency that evolved in frequency and sometimes spread to involve the left cerebral hemisphere. No clear clinical symptoms were noted in association with the electrographic seizures. Activation procedures were not performed. Epoch Start Time: 05:00 AM 08/15/2020 Epoch Stop Time: 05:00 AM 08/16/2020 The recording was discontinued from 15:53 PM to 18:26 PM on 08/15/2020 The background was asymmetric. No well-developed posterior dominant rhythm was identified. Anterior-posterior gradient was sparse. The background was continuous and consisted of generalized poorly-organized admixed polymorphic theta and delta frequency activity with lower frequencies on the right side. Variability was present. Reactivity was present. Normal sleep architecture was seen. Frequent right focal seizures were noted throughout this recording (started after 13:00 PM on 08/14/2020). These seizures were coming every about 2 minutes and each lasted for about 1 minute on average (18-20 seizures per hour on average), and consisted of a of right sided polymorphic semi-rhythmic spikes and sharp waves of 10-15 Hz in frequency that evolved in frequency and sometimes spread to involve the left cerebral hemisphere. Clinically, the seizures characterized by left gaze deviation, head turn to the left and jerky movements of the left arm. At around 12:00 PM on 08/15/2020, the seizures stopped, to restart again at around 14:30 PM with fluctuating seizure rate over time from 8-9 to 18-20 seizures per hour. Activation procedures were not performed. Epoch Start Time: 05:00 AM 08/16/2020 Epoch Stop Time: 05:00 AM 08/17/2020 The background was asymmetric. No well-developed posterior dominant rhythm was identified. Anterior-posterior gradient was sparse. The background was continuous and consisted of generalized poorly-organized admixed polymorphic theta and delta frequency activity with lower frequencies on the right side. Variability was present. Reactivity was present. Normal sleep architecture was seen. Frequent right focal seizures were noted throughout this recording (started after 13:00 PM on 08/14/2020). On average, these seizures were coming every about 2 minutes and each lasted for about 1 minute on average (18-20 seizures per hour on average), and consisted of a of right sided polymorphic semi-rhythmic spikes and sharp waves of 10-15 Hz in frequency that evolved in frequency and sometimes spread to involve the left cerebral hemisphere. Clinically, the seizures characterized by left gaze deviation, head turn to the left and jerky movements of the left arm. At the beginning of this recording, the seizures were nearly continuous. Seizures started to slow down in frequency and duration around 11:00 AM and stopped completely before 12:00 PM on 08/16/2020. The seizures restarted at around 15:30 PM with fluctuating seizure rate over time from 3-4 to 16-24 se izures per hour. From 03:00 AM to 05:00 AM on 08/17/2020, only one seizures was noted at 04:36 AM. Activation procedures were not performed. Epoch Start Time: 05:00 AM 08/16/2020 Epoch Stop Time: 05:00 AM 08/17/2020 The background was asymmetric. No well-developed posterior dominant rhythm was identified. Anterior-posterior gradient was sparse. The background was continuous and consisted of generalized poorly-organized admixed polymorphic theta and delta frequency activity with lower frequencies on the right side. Variability was present. Reactivity was present. Normal sleep architecture was seen. Frequent right focal seizures were noted throughout this recording (started after 13:00 PM on 08/14/2020). On average, these seizures were coming every about 2 minutes and each lasted for about 1 minute on average (18-20 seizures per hour on average), and consisted of a of right sided polymorphic semi-rhythmic spikes and sharp waves of 10-15 Hz in frequency that evolved in frequency and sometimes spread to involve the left cerebral hemisphere. Clinically, the seizures characterized by left gaze deviation, head turn to the left and jerky movements of the left arm. At the beginning of this recording, the seizures were nearly continuous. Seizures started to slow down in frequency and duration around 11:00 AM and stopped completely before 12:00 PM on 08/16/2020. The seizures restarted at around 15:30 PM with fluctuating seizure rate over time from 3-4 to 16-24 se izures per hour. From 03:00 AM to 05:00 AM on 08/17/2020, only one seizures was noted at 04:36 AM. Activation procedures were not performed. Epoch Start Time: 05:00 AM 08/17/2020 Epoch Stop Time: 05:00 AM 08/18/2020 The background was asymmetric. No well-developed posterior dominant rhythm was identified. Anterior-posterior gradient was sparse. The background was continuous and consisted of generalized poorly-organized admixed polymorphic theta and delta frequency activity with lower frequencies on the right side. Variability was present. Reactivity was present. Normal sleep architecture was seen. Frequent right focal seizures were noted throughout this recording (started after 13:00 PM on 08/14/2020). These seizures consisted of a of right sided polymorphic semi-rhythmic spikes and sharp wavesof 10-15 Hz in frequency that evolved in frequency and sometimes spread to involve the left cerebral hemisphere. Clinically, the seizures characterized by left gaze deviation, head turn to the left and jerky movements of the left arm. Seizure Frequency (05:00 AM 08/17 - 05:00 AM 08/18) 05:00 - 06:00: 19 Seizures 06:00 - 07:00: 18 Seizures 07:00 - 08:00: 17 Seizures 08:00 - 09:00: 11 Seizures 09:00 - 10:00: 2 Seizures 10:00 - 11:00: No Seizures 11:00 - 12:00: 9 Seizures 12:00 - 13:00: 14 Seizures 13:00 - 14:00: 8 Seizures 14:00 - 15:00: No Seizures 15:00 - 16:00: 16 Seizures 16:00 - 16:30: 7 Seizures 16:31 - 18:20: No seizures 18:21 - 05:00: 6 Seizures (last noted seizure at 21:13 PM on 08/17/2020) Activation procedures were not performed. Epoch Start Time: 05:00 AM 08/18/2020 Epoch Stop Time: 05:00 AM 08/19/2020 The background was asymmetric. No well-developed posterior dominant rhythm was identified. Anterior-posterior gradient was sparse. The background was continuous and consisted of generalized poorly-organized admixed polymorphic theta and delta frequency activity with lower frequencies on the right side. Variability was present. Reactivity was present. Normal sleep architecture was seen. Four right focal seizures were noted at the beginning of this recording at 05:14 AM, 05:17 AM, 05:25 AM and 05:32 AM on 08/18/2020. These seizures consisted of a of right sided polymorphic semi-rhythmic spikes and sharp waves of 10-15 Hz in frequency that evolved in frequency and sometimes spread toinvolve the left cerebral hemisphere. Clinically, the seizures characterized by left gaze deviation, head turn to the left and jerky movements of the left arm. Frequent right sided spikes and sharp waves were noted during this recording. Activation procedures were not performed. Epoch Start Time: 05:00 AM 08/19/2020 Epoch Stop Time: 05:00 AM 08/20/2020 The recording was discontinued from 07:55 AM to 08:29 AM on 08/19/2020 The background was asymmetric. No well-developed posterior dominant rhythm was identified. Anterior-posterior gradient was sparse. The background was continuous and consisted of generalized poorly-organized admixed polymorphic theta and delta frequency activity with lower frequencies on the right side. Variability was present. Reactivity was present. Normal sleep architecture was seen with sleep spindles and K-complexes. Occasional right sided spikes and sharp waves were noted during this recording. Activation procedures were not performed. EKG was observed throughout the recording. IMPRESSION This is an abnormal cEEG due to 1) right focal electrographic seizures (resolved), 2) occasional right sided spikes and sharp waves, 3) right sided slowing, 4) generalized slowing. CLINICAL CORRELATION: From 08/14-08/17: This finding is consistent with right focal seizures with right hemisphere dysfunction on top of generalized encephalopathy, but is not specific to etiology. From 08/17-08/18: This finding is consistent with decreased frequency of right focal seizures (last noted seizure at 21:13 PM on 08/17/2020) with right hemisphere dysfunction on top of generalized encephalopathy, but is not specific to etiology. From 08/18-08/20: This finding is consistent with resolution of right focal seizures (last noted seizure at 05:32 AM on 08/18/2020) with right hemisphere increased cortical irritability and dysfunction on top of generalized encephalopathy, but is not specific to etiology. Arlen Arguelles MD Clinical Neurophysiology Fellow 08/20/2020 I personally reviewed this study in its entirety and formulated the above report. Sean Raymundo DO * Sean Raymundo DO - 08/19/2020 12:26 AM CDT [facility] EEG REPORT Patient Name: Mojgan Tabor EEG#: [id number] Recording Start Time: 10:36 AM 08/14/2020 Epoch Start Time: 05:00 AM 08/18/2020 Epoch Stop Time: 05:00 AM 08/19/2020 Clinical History: Mojgan Tabor is a 60 year old male with break through seizures. This continuous video EEG monitoring is ordered to evaluate for seizures in the setting of altered mental status. Current medications Current Facility-Administered Medications Medication ??? 0.9% NaCl injection 3 mL And ??? 0.9% NaCl injection 1-10 mL ??? acetaminophen (TYLENOL) tablet 500 mg ??? amLODIPine (NORVASC) tablet 5 mg ??? aspirin chew tablet 81 mg ??? atorvastatin (LIPITOR) tablet 40 mg ??? clonazePAM (KlonoPIN) tablet 2 mg ??? divalproex DR (DEPAKOTE) tablet 1,000 mg ??? enoxaparin (LOVENOX) injection 40 mg ??? folic acid (FOLVITE) tablet 1 mg ??? heparin injection 5,000 Units ??? lacosamide (VIMPAT) tablet 200 mg ??? levETIRAcetam (KEPPRA) tablet 2,000 mg ??? multivitamin daily tablet 1 tablet ??? thiamine (Vitamin B-1) tablet 100 mg Description This is a continuous video EEG monitoring is 21-channels; consisting of 20 channels of EEG obtainedfrom electrodes placed on the scalp according to the international 10-20 system, T1 and T2 electrodes, and one channel of EKG monitoring. Background: Epoch Start Time: 10:36 AM 08/14/2020 Epoch Stop Time: 05:00 AM 08/15/2020 The background was asymmetric. No well-developed posterior dominant rhythm was identified. Anterior-posterior gradient was sparse. The background was continuous and consisted of generalized poorly-organized admixed polymorphic theta and delta frequency activity with lower frequencies on the right side. Variability was present. Reactivity was present. Normal sleep architecture was seen. Frequent right focal seizures were noted throughout this recording (started after 13:00 PM on 08/14/2020). These seizures were coming every about 2 minutes and each lasted for about 1 minute on average (18-20 seizures per hour on average), and consisted of a of right sided polymorphic semi-rhythmic spikes and sharp waves of 10-15 Hz in frequency that evolved in frequency and sometimes spread to involve the left cerebral hemisphere. No clear clinical symptoms were noted in association with the electrographic seizures. Activation procedures were not performed. Epoch Start Time: 05:00 AM 08/15/2020 Epoch Stop Time: 05:00 AM 08/16/2020 The recording was discontinued from 15:53 PM to 18:26 PM on 08/15/2020 The background was asymmetric. No well-developed posterior dominant rhythm was identified. Anterior-posterior gradient was sparse. The background was continuous and consisted of generalized poorly-organized admixed polymorphic theta and delta frequency activity with lower frequencies on the right side. Variability was present. Reactivity was present. Normal sleep architecture was seen. Frequent right focal seizures were noted throughout this recording (started after 13:00 PM on 08/14/2020). These seizures were coming every about 2 minutes and each lasted for about 1 minute on average (18-20 seizures per hour on average), and consisted of a of right sided polymorphic semi-rhythmic spikes and sharp waves of 10-15 Hz in frequency that evolved in frequency and sometimes spread to involve the left cerebral hemisphere. Clinically, the seizures characterized by left gaze deviation, head turn to the left and jerky movements of the left arm. At around 12:00 PM on 08/15/2020, the seizures stopped, to restart again at around 14:30 PM with fluctuating seizure rate over time from 8-9 to 18-20 seizures per hour. Activation procedures were not performed. Epoch Start Time: 05:00 AM 08/16/2020 Epoch Stop Time: 05:00 AM 08/17/2020 The background was asymmetric. No well-developed posterior dominant rhythm was identified. Anterior-posterior gradient was sparse. The background was continuous and consisted of generalized poorly-organized admixed polymorphic theta and delta frequency activity with lower frequencies on the right side. Variability was present. Reactivity was present. Normal sleep architecture was seen. Frequent right focal seizures were noted throughout this recording (started after 13:00 PM on 08/14/2020). On average, these seizures were coming every about 2 minutes and each lasted for about 1 minute on average (18-20 seizures per hour on average), and consisted of a of right sided polymorphic semi-rhythmic spikes and sharp waves of 10-15 Hz in frequency that evolved in frequency and sometimes spread to involve the left cerebral hemisphere. Clinically, the seizures characterized by left gaze deviation, head turn to the left and jerky movements of the left arm. At the beginning of this recording, the seizures were nearly continuous. Seizures started to slow down in frequency and duration around 11:00 AM and stopped completely before 12:00 PM on 08/16/2020. The seizures restarted at around 15:30 PM with fluctuating seizure rate over time from 3-4 to 16-24 se izures per hour. From 03:00 AM to 05:00 AM on 08/17/2020, only one seizures was noted at 04:36 AM. Activation procedures were not performed. Epoch Start Time: 05:00 AM 08/16/2020 Epoch Stop Time: 05:00 AM 08/17/2020 The background was asymmetric. No well-developed posterior dominant rhythm was identified. Anterior-posterior gradient was sparse. The background was continuous and consisted of generalized poorly-organized admixed polymorphic theta and delta frequency activity with lower frequencies on the right side. Variability was present. Reactivity was present. Normal sleep architecture was seen. Frequent right focal seizures were noted throughout this recording (started after 13:00 PM on 08/14/2020). On average, these seizures were coming every about 2 minutes and each lasted for about 1 minute on average (18-20 seizures per hour on average), and consisted of a of right sided polymorphic semi-rhythmic spikes and sharp waves of 10-15 Hz in frequency that evolved in frequency and sometimes spread to involve the left cerebral hemisphere. Clinically, the seizures characterized by left gaze deviation, head turn to the left and jerky movements of the left arm. At the beginning of this recording, the seizures were nearly continuous. Seizures started to slow down in frequency and duration around 11:00 AM and stopped completely before 12:00 PM on 08/16/2020. The seizures restarted at around 15:30 PM with fluctuating seizure rate over time from 3-4 to 16-24 se izures per hour. From 03:00 AM to 05:00 AM on 08/17/2020, only one seizures was noted at 04:36 AM. Activation procedures were not performed. Epoch Start Time: 05:00 AM 08/17/2020 Epoch Stop Time: 05:00 AM 08/18/2020 The background was asymmetric. No well-developed posterior dominant rhythm was identified. Anterior-posterior gradient was sparse. The background was continuous and consisted of generalized poorly-organized admixed polymorphic theta and delta frequency activity with lower frequencies on the right side. Variability was present. Reactivity was present. Normal sleep architecture was seen. Frequent right focal seizures were noted throughout this recording (started after 13:00 PM on 08/14/2020). These seizures consisted of a of right sided polymorphic semi-rhythmic spikes and sharp wavesof 10-15 Hz in frequency that evolved in frequency and sometimes spread to involve the left cerebral hemisphere. Clinically, the seizures characterized by left gaze deviation, head turn to the left and jerky movements of the left arm. Seizure Frequency (05:00 AM 08/17 - 05:00 AM 08/18) 05:00 - 06:00: 19 Seizures 06:00 - 07:00: 18 Seizures 07:00 - 08:00: 17 Seizures 08:00 - 09:00: 11 Seizures 09:00 - 10:00: 2 Seizures 10:00 - 11:00: No Seizures 11:00 - 12:00: 9 Seizures 12:00 - 13:00: 14 Seizures 13:00 - 14:00: 8 Seizures 14:00 - 15:00: No Seizures 15:00 - 16:00: 16 Seizures 16:00 - 16:30: 7 Seizures 16:31 - 18:20: No seizures 18:21 - 05:00: 6 Seizures (last noted seizure at 21:13 PM on 08/17/2020) Activation procedures were not performed. Epoch Start Time: 05:00 AM 08/18/2020 Epoch Stop Time: 05:00 AM 08/19/2020 The background was asymmetric. No well-developed posterior dominant rhythm was identified. Anterior-posterior gradient was sparse. The background was continuous and consisted of generalized poorly-organized admixed polymorphic theta and delta frequency activity with lower frequencies on the right side. Variability was present. Reactivity was present. Normal sleep architecture was seen. Four right focal seizures were noted at the beginning of this recording at 05:14 AM, 05:17 AM, 05:25 AM and 05:32 AM on 08/18/2020. These seizures consisted of a of right sided polymorphic semi-rhythmic spikes and sharp waves of 10-15 Hz in frequency that evolved in frequency and sometimes spread toinvolve the left cerebral hemisphere. Clinically, the seizures characterized by left gaze deviation, head turn to the left and jerky movements of the left arm. Frequent right sided spikes and sharp waves were noted during this recording. Activation procedures were not performed. EKG was observed throughout the recording. IMPRESSION This is an abnormal cEEG due to 1) frequent right focal electrographic seizures, 2) frequent right sided spikes and sharp waves, 3) right sided slowing, 4) generalized slowing. CLINICAL CORRELATION: From 08/14-08/17: This finding is consistent with right focal seizures with right hemisphere dysfunction on top of generalized encephalopathy, but is not specific to etiology. From 08/17-08/18: This finding is consistent with decreased frequency of right focal seizures (last noted seizure at 21:13 PM on 08/17/2020) with right hemisphere dysfunction on top of generalized encephalopathy, but is not specific to etiology. From 08/18-08/19: This finding is consistent with resolution of right focal seizures (last noted seizure at 05:32 AM on 08/18/2020) with right hemisphere increased cortical irritability and dysfunction on top of generalized encephalopathy, but is not specific to etiology. Arlen Arguelles MD Clinical Neurophysiology Fellow 08/19/2020 I personally reviewed this study in its entirety and formulated the above report. Sean Raymundo DO * Gianna August - 08/18/2020 11:04 AM CDT Checked electrodes and all under 10 ohms and skin looks alright. * Sean Raymundo DO - 08/18/2020 8:08 AM CDT [facility] EEG REPORT Patient Name: Mojgan Tabor EEG#: [id number] Recording Start Time: 10:36 AM 08/14/2020 Epoch Start Time: 05:00 AM 08/17/2020 Epoch Stop Time: 05:00 AM 08/18/2020 Clinical History: Mojgan Tabor is a 60 year old male with break through seizures. This continuous video EEG monitoring is ordered to evaluate for seizures in the setting of altered mental status. Current medications Current Facility-Administered Medications Medication ??? 0.9% NaCl injection 3 mL And ??? 0.9% NaCl injection 1-10 mL ??? acetaminophen (TYLENOL) tablet 500 mg ??? amLODIPine (NORVASC) tablet 5 mg ??? aspirin chew tablet 81 mg ??? atorvastatin (LIPITOR) tablet 40 mg ??? clonazePAM (KlonoPIN) tablet 2 mg ??? divalproex DR (DEPAKOTE) tablet 1,000 mg ??? folic acid (FOLVITE) tablet 1 mg ??? heparin injection 5,000 Units ??? lacosamide (VIMPAT) tablet 200 mg ??? levETIRAcetam (KEPPRA) tablet 2,000 mg ??? multivitamin daily tablet 1 tablet ??? thiamine (Vitamin B-1) tablet 100 mg Description This is a continuous video EEG monitoring is 21-channels; consisting of 20 channels of EEG obtainedfrom electrodes placed on the scalp according to the international 10-20 system, T1 and T2 electrodes, and one channel of EKG monitoring. Background: Epoch Start Time: 10:36 AM 08/14/2020 Epoch Stop Time: 05:00 AM 08/15/2020 The background was asymmetric. No well-developed posterior dominant rhythm was identified. Anterior-posterior gradient was sparse. The background was continuous and consisted of generalized poorly-organized admixed polymorphic theta and delta frequency activity with lower frequencies on the right side. Variability was present. Reactivity was present. Normal sleep architecture was seen. Frequent right focal seizures were noted throughout this recording (started after 13:00 PM on 08/14/2020). These seizures were coming every about 2 minutes and each lasted for about 1 minute on average (18-20 seizures per hour on average), and consisted of a of right sided polymorphic semi-rhythmic spikes and sharp waves of 10-15 Hz in frequency that evolved in frequency and sometimes spread to involve the left cerebral hemisphere. No clear clinical symptoms were noted in association with the electrographic seizures. Activation procedures were not performed. Epoch Start Time: 05:00 AM 08/15/2020 Epoch Stop Time: 05:00 AM 08/16/2020 The recording was discontinued from 15:53 PM to 18:26 PM on 08/15/2020 The background was asymmetric. No well-developed posterior dominant rhythm was identified. Anterior-posterior gradient was sparse. The background was continuous and consisted of generalized poorly-organized admixed polymorphic theta and delta frequency activity with lower frequencies on the right side. Variability was present. Reactivity was present. Normal sleep architecture was seen. Frequent right focal seizures were noted throughout this recording (started after 13:00 PM on 08/14/2020). These seizures were coming every about 2 minutes and each lasted for about 1 minute on average (18-20 seizures per hour on average), and consisted of a of right sided polymorphic semi-rhythmic spikes and sharp waves of 10-15 Hz in frequency that evolved in frequency and sometimes spread to involve the left cerebral hemisphere. Clinically, the seizures characterized by left gaze deviation, head turn to the left and jerky movements of the left arm. At around 12:00 PM on 08/15/2020, the seizures stopped, to restart again at around 14:30 PM with fluctuating seizure rate over time from 8-9 to 18-20 seizures per hour. Activation procedures were not performed. Epoch Start Time: 05:00 AM 08/16/2020 Epoch Stop Time: 05:00 AM 08/17/2020 The background was asymmetric. No well-developed posterior dominant rhythm was identified. Anterior-posterior gradient was sparse. The background was continuous and consisted of generalized poorly-organized admixed polymorphic theta and delta frequency activity with lower frequencies on the right side. Variability was present. Reactivity was present. Normal sleep architecture was seen. Frequent right focal seizures were noted throughout this recording (started after 13:00 PM on 08/14/2020). On average, these seizures were coming every about 2 minutes and each lasted for about 1 minute on average (18-20 seizures per hour on average), and consisted of a of right sided polymorphic semi-rhythmic spikes and sharp waves of 10-15 Hz in frequency that evolved in frequency and sometimes spread to involve the left cerebral hemisphere. Clinically, the seizures characterized by left gaze deviation, head turn to the left and jerky movements of the left arm. At the beginning of this recording, the seizures were nearly continuous. Seizures started to slow down in frequency and duration around 11:00 AM and stopped completely before 12:00 PM on 08/16/2020. The seizures restarted at around 15:30 PM with fluctuating seizure rate over time from 3-4 to 16-24 se izures per hour. From 03:00 AM to 05:00 AM on 08/17/2020, only one seizures was noted at 04:36 AM. Activation procedures were not performed. Epoch Start Time: 05:00 AM 08/16/2020 Epoch Stop Time: 05:00 AM 08/17/2020 The background was asymmetric. No well-developed posterior dominant rhythm was identified. Anterior-posterior gradient was sparse. The background was continuous and consisted of generalized poorly-organized admixed polymorphic theta and delta frequency activity with lower frequencies on the right side. Variability was present. Reactivity was present. Normal sleep architecture was seen. Frequent right focal seizures were noted throughout this recording (started after 13:00 PM on 08/14/2020). On average, these seizures were coming every about 2 minutes and each lasted for about 1 minute on average (18-20 seizures per hour on average), and consisted of a of right sided polymorphic semi-rhythmic spikes and sharp waves of 10-15 Hz in frequency that evolved in frequency and sometimes spread to involve the left cerebral hemisphere. Clinically, the seizures characterized by left gaze deviation, head turn to the left and jerky movements of the left arm. At the beginning of this recording, the seizures were nearly continuous. Seizures started to slow down in frequency and duration around 11:00 AM and stopped completely before 12:00 PM on 08/16/2020. The seizures restarted at around 15:30 PM with fluctuating seizure rate over time from 3-4 to 16-24 se izures per hour. From 03:00 AM to 05:00 AM on 08/17/2020, only one seizures was noted at 04:36 AM. Activation procedures were not performed. Epoch Start Time: 05:00 AM 08/16/2020 Epoch Stop Time: 05:00 AM 08/17/2020 The background was asymmetric. No well-developed posterior dominant rhythm was identified. Anterior-posterior gradient was sparse. The background was continuous and consisted of generalized poorly-organized admixed polymorphic theta and delta frequency activity with lower frequencies on the right side. Variability was present. Reactivity was present. Normal sleep architecture was seen. Frequent right focal seizures were noted throughout this recording (started after 13:00 PM on 08/14/2020). These seizures consisted of a of right sided polymorphic semi-rhythmic spikes and sharp wavesof 10-15 Hz in frequency that evolved in frequency and sometimes spread to involve the left cerebral hemisphere. Clinically, the seizures characterized by left gaze deviation, head turn to the left and jerky movements of the left arm. Seizure Frequency (05:00 AM 08/17 - 05:00 AM 08/18) 05:00 - 06:00: 19 Seizures 06:00 - 07:00: 18 Seizures 07:00 - 08:00: 17 Seizures 08:00 - 09:00: 11 Seizures 09:00 - 10:00: 2 Seizures 10:00 - 11:00: No Seizures 11:00 - 12:00: 9 Seizures 12:00 - 13:00: 14 Seizures 13:00 - 14:00: 8 Seizures 14:00 - 15:00: No Seizures 15:00 - 16:00: 16 Seizures 16:00 - 16:30: 7 Seizures 16:31 - 18:20: No seizures 18:21 - 05:00: 6 Seizures (last noted seizure at 21:13 PM on 08/17/2020) Activation procedures were not performed. EKG was observed throughout the recording. IMPRESSION This is an abnormal cEEG due to 1) frequent right focal electrographic seizures, 2) right sided slowing, 3) generalized slowing. CLINICAL CORRELATION: From 08/14-08/17: This finding is consistent with right focal seizures with right hemisphere dysfunction on top of generalized encephalopathy, but is not specific to etiology. From 08/17-08/18: This finding is consistent with decreased frequency of right focal seizures ((last noted seizure at 21:13 PM on 08/17/2020) with right hemisphere dysfunction on top of generalized encephalopathy, but is not specific to etiology. Arlen Arguelles MD Clinical Neurophysiology Fellow 08/18/2020 I personally reviewed this study in its entirety and formulated the above report. Sean Raymundo DO * Loretta Murphy - 08/17/2020 11:34 AM CDT Fixed A1, Fp1, Fp2, and P8. Checked those areas for skin break down as well, no break down noted. Could not document vitals due to pt not being hooked up to vital machine. * Sean Raymundo DO - 08/17/2020 8:50 AM CDT [facility] EEG REPORT Patient Name: Mojgan Tabor EEG#: [id number] Recording Start Time: 10:36 AM 08/14/2020 Epoch Start Time: 05:00 AM 08/16/2020 Epoch Stop Time: 05:00 AM 08/17/2020 Clinical History: Mojgan Tabor is a 60 year old male with break through seizures. This continuous video EEG monitoring is ordered to evaluate for seizures in the setting of altered mental status. Current medications Current Facility-Administered Medications Medication ??? 0.9% NaCl injection 3 mL And ??? 0.9% NaCl injection 1-10 mL ??? acetaminophen (TYLENOL) tablet 500 mg ??? amLODIPine (NORVASC) tablet 5 mg ??? aspirin chew tablet 81 mg ??? atorvastatin (LIPITOR) tablet 40 mg ??? clonazePAM (KlonoPIN) tablet 1 mg ??? divalproex DR (DEPAKOTE) tablet 1,000 mg ??? folic acid (FOLVITE) tablet 1 mg ??? heparin injection 5,000 Units ??? lacosamide (VIMPAT) tablet 200 mg ??? levETIRAcetam (KEPPRA) tablet 2,000 mg ??? magnesium sulfate 2 g in 50 mL bolus ??? multivitamin daily tablet 1 tablet ??? thiamine (Vitamin B-1) tablet 100 mg Description This is a continuous video EEG monitoring is 21-channels; consisting of 20 channels of EEG obtainedfrom electrodes placed on the scalp according to the international 10-20 system, T1 and T2 electrodes, and one channel of EKG monitoring. Background: Epoch Start Time: 10:36 AM 08/14/2020 Epoch Stop Time: 05:00 AM 08/15/2020 The background was asymmetric. No well-developed posterior dominant rhythm was identified. Anterior-posterior gradient was sparse. The background was continuous and consisted of generalized poorly-organized admixed polymorphic theta and delta frequency activity with lower frequencies on the right side. Variability was present. Reactivity was present. Normal sleep architecture was seen. Frequent right focal seizures were noted throughout this recording (started after 13:00 PM on 08/14/2020). These seizures were coming every about 2 minutes and each lasted for about 1 minute on average (18-20 seizures per hour on average), and consisted of a of right sided polymorphic semi-rhythmic spikes and sharp waves of 10-15 Hz in frequency that evolved in frequency and sometimes spread to involve the left cerebral hemisphere. No clear clinical symptoms were noted in association with the electrographic seizures. Activation procedures were not performed. Epoch Start Time: 05:00 AM 08/15/2020 Epoch Stop Time: 05:00 AM 08/16/2020 The recording was discontinued from 15:53 PM to 18:26 PM on 08/15/2020 The background was asymmetric. No well-developed posterior dominant rhythm was identified. Anterior-posterior gradient was sparse. The background was continuous and consisted of generalized poorly-organized admixed polymorphic theta and delta frequency activity with lower frequencies on the right side. Variability was present. Reactivity was present. Normal sleep architecture was seen. Frequent right focal seizures were noted throughout this recording (started after 13:00 PM on 08/14/2020). These seizures were coming every about 2 minutes and each lasted for about 1 minute on average (18-20 seizures per hour on average), and consisted of a of right sided polymorphic semi-rhythmic spikes and sharp waves of 10-15 Hz in frequency that evolved in frequency and sometimes spread to involve the left cerebral hemisphere. Clinically, the seizures characterized by left gaze deviation, head turn to the left and jerky movements of the left arm. At around 12:00 PM on 08/15/2020, the seizures stopped, to restart again at around 14:30 PM with fluctuating seizure rate over time from 8-9 to 18-20 seizures per hour. Activation procedures were not performed. Epoch Start Time: 05:00 AM 08/16/2020 Epoch Stop Time: 05:00 AM 08/17/2020 The background was asymmetric. No well-developed posterior dominant rhythm was identified. Anterior-posterior gradient was sparse. The background was continuous and consisted of generalized poorly-organized admixed polymorphic theta and delta frequency activity with lower frequencies on the right side. Variability was present. Reactivity was present. Normal sleep architecture was seen. Frequent right focal seizures were noted throughout this recording (started after 13:00 PM on 08/14/2020). On average, these seizures were coming every about 2 minutes and each lasted for about 1 minute on average (18-20 seizures per hour on average), and consisted of a of right sided polymorphic semi-rhythmic spikes and sharp waves of 10-15 Hz in frequency that evolved in frequency and sometimes spread to involve the left cerebral hemisphere. Clinically, the seizures characterized by left gaze deviation, head turn to the left and jerky movements of the left arm. At the beginning of this recording, the seizures were nearly continuous. Seizures started to slow down in frequency and duration around 11:00 AM and stopped completely before 12:00 PM on 08/16/2020. The seizures restarted at around 15:30 PM with fluctuating seizure rate over time from 3-4 to 16-24 se izures per hour. From 03:00 AM to 05:00 AM on 08/17/2020, only one seizures was noted at 04:36 AM. Activation procedures were not performed. EKG was observed throughout the recording. IMPRESSION This is an abnormal cEEG due to 1) frequent right focal electrographic seizures, 2) right sided slowing, 3) generalized slowing. CLINICAL CORRELATION: From 08/14-08/17: This finding is consistent with right focal seizures with right hemisphere dysfunction on top of generalized encephalopathy, but is not specific to etiology. Arlen Arguelles MD Clinical Neurophysiology Fellow 08/17/2020 I personally reviewed this study in its entirety and formulated the above report. Sean Raymundo DO * Sean Raymundo DO - 08/16/2020 8:26 AM CDT [facility] EEG REPORT Patient Name: Mojgan Tabor EEG#: [id number] Recording Start Time: 10:36 AM 08/14/2020 Epoch Start Time: 05:00 AM 08/15/2020 Epoch Stop Time: 05:00 AM 08/16/2020 Clinical History: Mojgan Tabor is a 60 year old male with break through seizures. This continuous video EEG monitoring is ordered to evaluate for seizures in the setting of altered mental status. Current medications Current Facility-Administered Medications Medication ??? 0.9% NaCl infusion ??? 0.9% NaCl injection 3 mL And ??? 0.9% NaCl injection 1-10 mL ??? acetaminophen (TYLENOL) tablet 500 mg ??? amLODIPine (NORVASC) tablet 5 mg ??? aspirin chew tablet 81 mg ??? atorvastatin (LIPITOR) tablet 40 mg ??? clonazePAM (KlonoPIN) tablet 1 mg ??? divalproex DR (DEPAKOTE) tablet 750 mg ??? folic acid (FOLVITE) tablet 1 mg ??? lacosamide (VIMPAT) tablet 200 mg ??? levETIRAcetam (KEPPRA) tablet 2,000 mg ??? multivitamin daily tablet 1 tablet ??? thiamine (Vitamin B-1) tablet 100 mg Description This is a continuous video EEG monitoring is 21-channels; consisting of 20 channels of EEG obtainedfrom electrodes placed on the scalp according to the international 10-20 system, T1 and T2 electrodes, and one channel of EKG monitoring. Background: Epoch Start Time: 10:36 AM 08/14/2020 Epoch Stop Time: 05:00 AM 08/15/2020 The background was asymmetric. No well-developed posterior dominant rhythm was identified. Anterior-posterior gradient was sparse. The background was continuous and consisted of generalized poorly-organized admixed polymorphic theta and delta frequency activity with lower frequencies on the right side. Variability was present. Reactivity was present. Normal sleep architecture was seen. Frequent right focal seizures were noted throughout this recording (started after 13:00 PM on 08/14/2020). These seizures were coming every about 2 minutes and each lasted for about 1 minute on average (18-20 seizures per hour on average), and consisted of a of right sided polymorphic semi-rhythmic spikes and sharp waves of 10-15 Hz in frequency that evolved in frequency and sometimes spread to involve the left cerebral hemisphere. No clear clinical symptoms were noted in association with the electrographic seizures. Activation procedures were not performed. Epoch Start Time: 05:00 AM 08/15/2020 Epoch Stop Time: 05:00 AM 08/16/2020 The recording was discontinued from 15:53 PM to 18:26 PM on 08/15/2020 The background was asymmetric. No well-developed posterior dominant rhythm was identified. Anterior-posterior gradient was sparse. The background was continuous and consisted of generalized poorly-organized admixed polymorphic theta and delta frequency activity with lower frequencies on the right side. Variability was present. Reactivity was present. Normal sleep architecture was seen. Frequent right focal seizures were noted throughout this recording (started after 13:00 PM on 08/14/2020). These seizures were coming every about 2 minutes and each lasted for about 1 minute on average (18-20 seizures per hour on average), and consisted of a of right sided polymorphic semi-rhythmic spikes and sharp waves of 10-15 Hz in frequency that evolved in frequency and sometimes spread to involve the left cerebral hemisphere. Clinically, the seizures characterized by left gaze deviation, head turn to the left and jerky movements of the left arm. At around 12:00 PM on 08/15/2020, the seizures stopped, to restart again at around 14:30 PM with fluctuating seizure rate over time from 8-9 to 18-20 seizures per hour. Activation procedures were not performed. EKG was observed throughout the recording. IMPRESSION This is an abnormal cEEG due to 1) frequent right focal electrographic seizures, 2) right sided slowing, 3) generalized slowing. CLINICAL CORRELATION: From 08/14-08/16: This finding is consistent with right focal seizures with right hemisphere dysfunction on top of generalized encephalopathy, but is not specific to etiology. Arlen Arguelles MD Clinical Neurophysiology Fellow 08/16/2020 I personally reviewed this study in its entirety and formulated the above report. Sean Raymundo DO * Sean Raymundo DO - 08/15/2020 8:45 AM CDT [facility] EEG REPORT Patient Name: Mojgan Tabor EEG#: [id number] Recording Start Time: 10:36 AM 08/14/2020 Epoch Start Time: 10:36 AM 08/14/2020 Epoch Stop Time: 05:00 AM 08/15/2020 Clinical History: Mojgan Tabor is a 60 year old male with break through seizures. This continuous video EEG monitoring is ordered to evaluate for seizures in the setting of altered mental status. Current medications Current Facility-Administered Medications Medication ??? 0.9% NaCl infusion ??? 0.9% NaCl injection 3 mL And ??? 0.9% NaCl injection 1-10 mL ??? acetaminophen (TYLENOL) tablet 500 mg ??? amLODIPine (NORVASC) tablet 5 mg ??? aspirin chew tablet 81 mg ??? atorvastatin (LIPITOR) tablet 40 mg ??? clonazePAM (KlonoPIN) tablet 1 mg ??? divalproex DR (DEPAKOTE) tablet 750 mg ??? heparin injection 5,000 Units ??? lacosamide (VIMPAT) tablet 200 mg ??? levETIRAcetam (KEPPRA) tablet 1,500 mg Description This is a continuous video EEG monitoring is 21-channels; consisting of 20 channels of EEG obtainedfrom electrodes placed on the scalp according to the international 10-20 system, T1 and T2 electrodes, and one channel of EKG monitoring. Background: Epoch Start Time: 10:36 AM 08/14/2020 Epoch Stop Time: 05:00 AM 08/15/2020 The background was asymmetric. No well-developed posterior dominant rhythm was identified. Anterior-posterior gradient was sparse. The background was continuous and consisted of generalized poorly-organized admixed polymorphic theta and delta frequency activity with lower frequencies on the right side. Variability was present. Reactivity was present. Normal sleep architecture was seen. Frequent right focal seizures were noted throughout this recording (started after 13:00 PM on 08/14/2020). These seizures were coming every about 2 minutes and each lasted for about 1 minute on average (18-20 seizures per hour on average), and consisted of a of right sided polymorphic semi-rhythmic spikes and sharp waves of 10-15 Hz in frequency that evolved in frequency and sometimes spread to involve the left cerebral hemisphere. No clear clinical symptoms were noted in association with the electrographic seizures. Activation procedures were not performed. EKG was observed throughout the recording. IMPRESSION This is an abnormal cEEG due to 1) frequent right focal electrographic seizures, 2) right sided slowing, 3) generalized slowing. CLINICAL CORRELATION: From 08/14-08/15: This finding is consistent with right focal seizures with right hemisphere dysfunction on top of generalized encephalopathy, but is not specific to etiology. Arlen Arguelles MD Clinical Neurophysiology Fellow 08/15/2020 I personally reviewed this study in its entirety and formulated the above report. Sean Raymundo DO * Lynne Grace EEG T. - 08/14/2020 11:05 AM CDTProcedure(s): EEG VIDEO MONITORING The pt had MRI compatible electrodes placed on his head and two EKG patches placed on his chest forthe continuous video EEG monitoring. Niesha Campoverde EEG/EP T , [facility] documented in this encounter ED Notes * Melany Partida RN - 08/13/2020 7:32 PM CDT Gave report to Mandi Garcia. Answered all questions, no concerns from nurse. Will turnover careat this time. * Naa Reyna MD - 08/13/2020 7:14 PM CDT ASSUMED CARE NOTE Patient signed out to me by Dr. Fajardo at 7:04 PM. Briefly, Mojgan Tabor is a 60 year old male is being evaluated for recurrent seizures. Patient has history of known seizure disorder. Neurology recently lowered the patient's seizure medications from4 to 2. At this time the patient's condition is Fair. Pending studies include none. Plan is admit to neurology pending bed availability. ED Course: 7:45 PM - On reassessment, patient is resting comfortably at this time. 7:58 PM - Patient at this time has a bed assigned with neurology service. Patient to be transferredto their inpatient bed. Clinical Impression: 1. Seizure 2. Seizures Disposition: Admit to neurology. By signing my name below, I, Max Sanders, attest that this documentation has been prepared under the direction and in the presence of Dr. Reyna. Signed: Laisha Conrad. I, Dr. Reyna, personally performed the services described in this documentation. All medical record entries made by the scribe were at my direction and in my presence. I have reviewed the chart and agree that the record reflects my personal performance and is accurate and complete. Signed: Dr. Reyna. 08/14/2020. 7:28 AM. * Verenice Ross RN - 08/13/2020 7:10 PM CDT Report given to ALFRED Mosley for continuity of care. All questions answered, all concerns addressed. * Verenice Ross RN - 08/13/2020 6:25 PM CDT Patient had 2 witnessed seizure-like activity. Patient remains able to answer to name during activity. MD Fajardo made aware of event. Orders were placed. * Verenice Ross RN - 08/13/2020 5:42 PM CDT Patient ambulated to the restroom with 2 person assist. EDT to stay with patient. Patient able to follow commands, however is delayed in response to commands. * Verenice Ross RN - 08/13/2020 4:00 PM CDT Pt to CT at this time. * Shane Fajardo MD - 08/13/2020 3:[address] [facility] EMERGENCY DEPARTMENT ENCOUNTER HISTORICAL INFORMATION Primary Care Doctor: Misael Maradiaga, Patient information was obtained primarily from the patient, nursing notes, EMS History/Exam limitations: None Provider contact time: 3:30 PM I have personally seen, examined and been fully involved in the management of this patient with theresident. I confirm history, exam, assessment and plan Discussed. In addition I note: CHIEF COMPLAINT Seizure (Patient BIBEMS for multiple seizures. Seizues were witnessed by roommate being ~1 minute in length. EMS withnessed 3 seizures ~1 minute in length, no loss of bowel or bladder, no post-ictal period. ) KARL Tabor is a 60 year old male who presents to ED BIBEMS for evaluation of increased seizures over the last 2 weeks. Patient states he has hx of seizures and his antiepileptic medications were changed at the beginning of July. Since that time, he has had an increase in seizures with an averageof 1 seizure every 2 days. He reports that prior to the medication change, he normally had 1-2 seizures per month. Endorses associated sx frequent falls, stating he's fallen multiple times in the last month and has hit his head multiple times. Denies hallucinations, vision changes, headache, chest pain, SOB, and all other sx. No exacerbating or alleviating factors. No further complaints at this time. PAST MEDICAL HISTORY Past Medical History: Diagnosis Date ??? CVA (cerebral vascular accident) ??? HTN (hypertension) ??? Seizure SURGICAL HISTORY No past surgical history on file. CURRENT MEDICATIONS Current Outpatient Medications: ??? acetaminophen (TYLENOL) 325 [...] , Disp: , Rfl: ??? lacosamide (VIMPAT) 150 MG tablet, Take 1 tablet in AM (instead of 200 mg tablet) for 2 weeks then 1 tablet BID (insead of 200 mg tablets) Call with questions., Disp: 60 tablet, Rfl: 5 ??? lacosamide (VIMPAT) 200 MG tablet, Take [...] Social History Narrative ??? Not on file REVIEW OF SYSTEMS Constitutional: Denies fever, chills, weight loss or weakness. Eyes: Denies photophobia or discharge. HENT: Denies sore throat or ear pain. Respiratory: Denies cough or shortness of breath. Cardiovascular: Denies chest pain, palpitations or swelling. GI: Denies abdominal pain, nausea, vomiting, or diarrhea. Musculoskeletal: Denies back pain. Skin: Denies rash. Neurologic: Denies headache, focal weakness or sensory changes. +falls +seizures Endocrine: Denies polyuria or polydypsia. Lymphatic: Denies swollen glands. Psychiatric: Denies depression, suicidal ideation or homicidal ideation. See HPI for further details. All systems negative except as marked. PHYSICAL EXAM VITAL SIGNS: BP 153/96 Pulse 76 Temp 97.5 ??F (36.4 ??C) (Axillary) Resp 18 Ht 1.803 m (5' 11 ) Wt 67.6 kg (149 lb) SpO2 96% BMI 20.78 kg/m2 Constitutional: Well developed, Well nourished, No acute distress, Non-toxic appearance. HENT: Normocephalic, Atraumatic, Bilateral external ears normal, Oropharynx moist, No oral exudates, Nose normal. Eyes: PERRL, EOMI, Conjunctiva normal, No discharge. Neck- Normal range of motion, No tenderness, Supple, No stridor. Respiratory: Normal breath sounds, No respiratory distress. Cardiovascular: Normal heart rate, Normal rhythm GI: Bowel sounds normal, Soft, No tenderness Musculoskeletal: Intact distal pulses, No edema, No tenderness, No cyanosis. Good range of motion in all major joints. No tenderness to palpation or major deformities noted. Back- No tenderness. Integument: Warm, Dry Lymphatic: No lymphadenopathy noted. Neurologic: Alert & oriented x 3, Normal motor function, Normal sensory function, No focal deficits noted. Mental Status: awake, alert, orientedx3 Higher cerebral function: speech-non aphasic Cranial Nerves: II-XII intact. Motor Function: Bilateral upper and lower extremities- 5/5 Sensation Function: Bilateral face, upper and lower extremities- normal to light touch Coordination: Normal finger to nose bilaterally Psychiatric: Affect normal, Judgment normal, Mood normal. PULSE OXIMETRY INTERPRETATION Saturation: 98% Oxygen Delivery: ra Interpretation: normal RHYTHM STRIP INTERPRETATION (interpreted by ED provider) Rhythm: sinus Ventricular Rate: 70 bpm RADIOLOGY I have independently reviewed all imaging for today's visit. Xr Chest 1vw Portable Result Date: 08/13/2020 EXAMINATION: XR CHEST 1VW PORTABLE HISTORY: R56.9: Seizures COMPARISON: No prior study is availablefor comparison. FINDINGS/IMPRESSION: There is no focal consolidation, pleural effusion, or pneumothorax. The cardiomediastinal silhouette is normal. The visible bony thorax is intact. Dictated by Brandee Celestin MD (residential life director). I, Dr. HAZEL HYATT M.D. have personally reviewed and interpreted this examinati on/study. This report was electronically signed by HAZEL HYATT M.D. on 08/13/2020 4:14 PM . PROGRESS NOTES 4:33 PM - Discussed all the pertinent aspects of the case with neurology, who will see the patient. 4:58 PM - Patient accepted for admission to neurology at this time. Attending Dr. Carl. After discussion with neurology, the patient will be admitted to their service for further management of care. -I have reviewed the diagnostic findings with the patient and they have had an opportunity to ask me any questions they have about care, diagnosis, and reason for admission. The patient states understanding and agrees to admission. 5:58 PM - notified by nurse patient had another episode of seizure activity. 7:00 PM - patient signed out to Dr. Reyna, pending inpatient bed availability. ED COURSE & MEDICAL DECISION MAKING Pertinent Labs & Imaging studies reviewed. (See chart for details) Hospital Encounter on 08/13/20 VALPROIC ACID LEVEL Result Value Ref Range Valproic Acid Total 35 (L) 50 - 100 mcg/mL CBC W AUTO DIFFERENTIAL Result Value Ref Range WBC 7.3 3.5 - 10.5 10??3/uL RBC 4.67 4.30 - 5.70 10??6/uL Hemoglobin 15.1 13.5 - 17.5 g/dL Hematocrit 44.7 39.0 - 50.0 % MCV 95.7 81.0 - 97.0 fL MCH 32.3 28.0 - 34.0 pg MCHC 33.8 32.0 - 36.0 g/dL Platelet Count 97 (L) 150 - 400 10??3/uL RDW-SD 40.5 36.0 - 50.0 fL RDW-CV 11.7 11.2 - 14.8 % MPV 11.6 9.3 - 12.8 fL nRBC Absolute 0.00 0 10??3/uL nRBC Auto 0.0 0 /100 WBC Neutrophils % 48.1 35.0 - 70.0 % Lymphocytes % 41.0 19.7 - 55.1 % Monocytes % 7.4 3.0 - 15.0 % Eosinophils % 2.9 0.0 - 6.0 % Basophil % 0.3 0.0 - 1.5 % Neutrophils Absolute 3.5 1.6 - 7.0 10??3/uL Lymphocyte Absolute 3.0 (H) 0.8 - 2.9 10??3/uL Monocytes Absolute 0.54 0.14 - 0.66 10??3/uL Eosinophils Absolute 0.21 0.00 - 0.45 10??3/uL Basophils Absolute 0.02 0.00 - 0.06 10??3/uL Immature Granulocytes % 0.3 0.0 - 1.0 % COMPREHENSIVE METABOLIC PANEL Result Value Ref Range BUN 13 7 - 26 mg/dL Creatinine 1.0 0.6 - 1.2 mg/dL Sodium 146 (H) 136 - 145 mmol/L Potassium 4.5 3.5 - 4.5 mmol/L Chloride 112 (H) 98 - 107 mmol/L CO2 22 22 - 29 mmol/L Glucose 104 70 - 115 mg/dL Calcium 9.4 8.4 - 10.2 mg/dL Protein Total 7.3 6.0 - 8.3 g/dL Albumin 4.1 3.4 - 5.0 g/dL Bilirubin Total 0.6 0.2 - 1.2 mg/dL Alkaline Phosphatase 64 40 - 150 Units/L ALT 11 0 - 55 Units/L AST 21 5 - 34 Units/L Anion Gap 17 8 - 18 BUN/Creatinine Ratio 13 7 - 23 Osmolality Calculated 302 (H) 270 - 300 mOsm/kg Albumin/Globulin Ratio 1.3 1.1 - 2.3 eGFR >60 >60 mL/min/1.73 m2 Amount and/or Complexity of Data Reviewed Triage [...] with other providers: yes FINAL IMPRESSION 1. Seizure 2. Seizures Admit to neurology By signing my name below, I, Kinza Kate, attest that this documentation has been prepared underthe direction and in the presence of Dr. Fajardo. Signed: Laisha Jean Baptiste M.D. Emergency Medicine Physician * Susan Mulligan, ALFRED - 08/13/2020 2:55 PM CDT Bed: AC14 Expected date: Expected time: Means of arrival: Comments: Multiple seizures documented in this encounter Miscellaneous Notes * Coding Query - Crescencio Carney MD - 08/21/2020 8:24 PM CDT DOCUMENTATION CLARIFICATION REQUEST TO: Dr. Carney FROM: Raphael Posada RN BSN [facility] [phone] [email or web address] Due to the documentation of post-stroke epilepsy by , please verify post- stroke epilepsy meaning ??? Epilepsy due to previous stroke ??? Epilepsy occurring after a stroke ??? 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 The patient has had Stroke in the past and Seizures since then. Dr Carney Please provide your clinical opinion in the progress notes & carry it through into your discharge summary. Please include clinical findings supporting your diagnosis. This documentation is maintained as a permanent part of the medical record * Significant Event - Verenice Ross RN - 08/13/2020 7:01 PM CDT Mojgan Tabor [id number] POST FALL NOTE: Date of Fall: 08/13/2020 Time of Fall: 18:55 Witnesses: Staff Position in which patient was found: Sitting on ground Post Fall Assessment: No physical injury noted Physician Notified?: Yes Physician Name: MD Fajardo Follow Up Activities: No actions taken Wound/Injury Treatment: N/A Post Fall Prevention Interventions: Patient education and Room door open Vitals 08/13/20 1509 08/13/20 1530 BP: 135/83 153/96 Pulse: 76 Resp: 18 SpO2: 98% 96% Last filed Fall Risk Assessment Narrative: Patient called KEILY RezaT to room and attempted to stand on own. Patient not able to stand on own and fell onto bottom on the floor. Patient assisted back to bed by this RN and EDT. Patient denied hitting head. VSS after fall. Verenice Ross RN 08/13/2020 documented in this encounter Plan of Treatment Upcoming Encounters Date Type Department Care Team (Late st Contact Info) Description 12/05/2024 1:00 PM CDT Office Visit [facility] - Neurology [address] [place] [address], [place] [phone] Sean Raymundo DO [address] [place] [address] [place] [id number] documented as of this encounter Procedures Procedure Name Priority Date/Time Associated Diagnosis Comments CULTURE BLOOD Timed 08/20/2020 12:29 PM CDT CULTURE BLOOD Timed 08/20/2020 12:27 PM CDT US RETROPERITONEAL COMPLETE Routine 08/20/2020 10:47 AM CDT Urinary tract infection without hematuria, site unspecified CBC W/O DIFFERENTIAL AM Draw 08/20/2020 4:03 AM CDT BASIC METABOLIC PANEL (CALCIUM TOTAL) AM Draw 08/20/2020 4:03 AM CDT PHOSPHORUS BLOOD Routine 08/20/2020 4:03 AM CDT MAGNESIUM BLOOD Routine 08/20/2020 4:03 AM CDT URINALYSIS REFLEX TO MICROSCOPIC NO CULTURE Routine 08/19/2020 5:42 PM CDT CBC W AUTO DIFFERENTIAL Routine 08/20/19 12:54 PM CDT XR CHEST 1VW PORTABLE STAT 08/19/2020 9:02 AM CDT Seizure (HCC) GLUCOSE - POINT OF CARE Routine 08/19/19 4:39 PM CDT GLUCOSE - POINT OF CARE Routine 08/19/19 12:38 PM CDT GLUCOSE - POINT OF CARE Routine 08/19/19 9:21 AM CDT GLUCOSE - POINT OF CARE Routine 08/19/19 9:17 AM CDT GLUCOSE - POINT OF CARE Routine 08/18/19 8:31 PM CDT CBC W AUTO DIFFERENTIAL Routine 08/18/19 2:55 PM CDT BASIC METABOLIC PANEL (CALCIUM TOTAL) Routine 08/17/2020 2:55 PM CDT MAGNESIUM BLOOD Routine 08/17/2020 2:55 PM CDT VALPROIC ACID LEVEL Routine 08/17/2020 2 :55 PM CDT GLUCOSE - POINT OF CARE Routine 08/17/19 4:12 PM CDT VALPROIC ACID LEVEL Routine 08/16/2020 3 :42 PM CDT GLUCOSE - POINT OF CARE Routine 08/17/19 12:01 PM CDT GLUCOSE - POINT OF CARE Routine 08/17/19 8:27 AM CDT CBC W AUTO DIFFERENTIAL AM Draw 08/17/19 12:47 AM CDT BASIC METABOLIC PANEL (CALCIUM TOTAL) AM Draw 08/16/2020 12:47 AM CDT MAGNESIUM BLOOD Routine 08/16/2020 12:47 AM CDT VALPROIC ACID LEVEL Routine 08/16/2020 1 2:47 AM CDT GLUCOSE - POINT OF CARE Routine 08/16/19 9:44 PM CDT GLUCOSE - POINT OF CARE Routine 08/16/19 5:45 PM CDT MRI BRAIN WO CONTRAST STAT 08/15/2020 4:51 PM CDT Seizure (HCC) CBC W AUTO DIFFERENTIAL Routine 08/16/19 3:05 PM CDT GLUCOSE - POINT OF CARE Routine 08/16/19 12:47 PM CDT XR ABDOMEN KUB PORTABLE STAT 08/16/19 10:33 AM CDT Seizure (HCC) XR PELVIS 1 OR 2VW Routine 08/15/2020 10 :33 AM CDT Seizure (HCC) HEPARIN PLATELET INDUCED ANTIBODY Routine 08/15/2020 9:08 AM CDT BASIC METABOLIC PANEL (CALCIUM TOTAL) Routine 08/15/2020 8:10 AM CDT MAGNESIUM BLOOD Routine 08/15/2020 8:10 AM CDT VALPROIC ACID LEVEL Routine 08/15/2020 8 :10 AM CDT GLUCOSE - POINT OF CARE Routine 08/16/19 8:05 AM CDT GLUCOSE - POINT OF CARE Routine 08/15/19 9:42 PM CDT GLUCOSE - POINT OF CARE Routine 08/15/19 5:16 PM CDT GLUCOSE - POINT OF CARE Routine 08/15/19 12:06 PM CDT GLUCOSE - POINT OF CARE Routine 08/15/19 9:09 AM CDT CBC W/O DIFFERENTIAL Routine 08/14/2020 6:00 AM CDT Seizure (HCC) BASIC METABOLIC PANEL (CALCIUM TOTAL) Routine 08/14/2020 6:00 AM CDT Seizure (HCC) PHOSPHORUS BLOOD Routine 08/14/2020 6:00 AM CDT Seizure (HCC) MAGNESIUM BLOOD Routine 08/14/2020 6:00 AM CDT Seizure (HCC) VALPROIC ACID LEVEL STAT 08/14/2020 6 :00 AM CDT Seizure (HCC) GLUCOSE - POINT OF CARE Routine 08/14/19 10:12 PM CDT SARS-COV-2 (COVID-19)+INFLU A+B PCR RAPID STAT 08/13/2020 6:50 PM CDT Seizures (HCC) URINALYSIS W/MICROSCOPIC NO CULTURE STAT 08/13/2020 6:09 PM CDT LACOSAMIDE STAT 08/13/2020 5:00 PM CDT LEVETIRACETAM LEVEL STAT 08/13/2020 5 :00 PM CDT COMPREHENSIVE METABOLIC PANEL STAT 08/13/2020 5:[address] HEAD WO CONTRAST STAT 08/13/2020 4 :12 PM CDT Seizures (HCC) CBC W AUTO DIFFERENTIAL STAT 08/14/19 3:58 PM CDT VALPROIC ACID LEVEL STAT 08/13/2020 3 :58 PM CDT XR CHEST 1VW PORTABLE STAT 08/13/2020 3:57 PM CDT Seizures (HCC) documented in this encounter Results * CULTURE BLOOD (08/20/2020 12:29 PM CDT) Culture No growth day 5 JELLY 08/25/2020 4:30 PM CDT [facility] MICROBIOLOGY Blood PERIPHERAL BLOOD / Unknown Lab Venipuncture / Unknown 08/20/2020 12:29 PM CDT 08/20/2020 4:03 PM CDT Baldev Carl MD LAB - MICROBIOLOGY O [facility] MICROBIOLOGY [address] [place] [id number], [facility] [phone] * CULTURE BLOOD (08/20/2020 12:27 PM CDT) Culture No growth day 5 JELLY 08/25/2020 4:30 PM CDT [facility] MICROBIOLOGY Blood PERIPHERAL BLOOD / Unknown Lab Venipuncture / Unknown 08/20/2020 12:27 PM CDT 08/20/2020 2:25 PM CDT Baldev Carl MD LAB - MICROBIOLOGY [facility] MICROBIOLOGY [address] [place] [id number], [facility] [phone] * US RETROPERITONEAL COMPLETE (08/20/2020 10:47 AM CDT) Anatomical Region Laterality Modality Abdomen Ultrasound 08/20/2020 10:4 3 AM CDT Impressions 08/20/2020 10:52 AM CDT IMPRESSION: Within the limitations of the study, the kidneys appear grossly unremarkable. Dictated by Yonis Howard MD (residential life director). IDr. NAJMA have personally reviewed and interpreted this examination/study. [...] unremarkable. Dictated by Yonis Howard MD (residential life director). Dr. NAJMA Thomason have personally reviewed and interpreted this examination/study. This report was electronically signed by NAJMA BRITT on 110:52 AM . Baldev Carl MD US ORDERABLES * (ABNORMAL) BASIC METABOLIC PANEL (CALCIUM TOTAL) (08/20/2020 4:03 AM CDT) Pathologist [facility] BUN 16 7 - 26 mg/dL 08/20/2020 4:56 AM [facility] Creatinine 1.0 0.6 - 1.2 mg/dL 08/20/2020 4:56 AM [facility] Sodium 141 136 - 145 mmol/L 08/20/2020 4:56 AM [facility] Potassium 4.3 3.5 - 4.5 mmol/L 08/20/2020 4:56 AM [facility] Chloride 103 98 - 107 mmol/L 08/20/2020 4:56 AM [facility] CO2 26 22 - 29 mmol/L 08/20/2020 4:56 AM [facility] Glucose 116(H) 70 - 115 mg/dL 08/20/2020 4:56 AM [facility] Calcium 9.3 8.4 - 10.2 mg/dL 08/20/2020 4:56 AM [facility] Anion Gap 16 8 - 18 08/20/2020 4:56 AM [facility] BUN/Creatinine Ratio 16 7 - 23 08/20/2020 4:56 AM [facility] Osmolality Calculated 294 270 - 300 mOsm/kg 08/20/2020 4:56 AM [facility] eGFR >60 >60 mL/min/1.7 3 m2 08/20/2020 4:56 AM [facility] Blood BLOOD SPECIMEN / Unknown Lab Venipuncture / Unknown 08/20/2020 4:03 AM CDT 08/20/2020 4:26 AM T Baldev Carl MD LAB - CHEMISTRY [facility] Organization Address City/State/ZIP Co de Phone Number [facility] [address] [place] [phone], [facility] [phone] * PHOSPHORUS BLOOD (08/20/2020 4:03 AM CDT) Pathologist [facility] Phosphorus 3.2 2.3 - 4.7 mg/dL 08/20/2020 4:56 AM CDT [facility] Blood BLOOD SPECIMEN / Unknown Lab Venipuncture / Unknown 08/20/2020 4:03 AM CDT 08/20/2020 4:26 AM CDT Baldev Carl MD LAB - CHEMISTRY [facility] [address] [address], [facility] [phone] * MAGNESIUM BLOOD (08/20/2020 4:03 AM CDT) Magnesium 1.9 1.6 - 2.6 mg/dL 08/20/2020 4:56 AM CDT [facility] Blood BLOOD SPECIMEN / Unknown Lab Venipuncture / Unknown 08/20/2020 4:03 AM CDT 08/20/2020 4:26 AM CDT Baldev Carl MD LAB - CHEMISTRY [facility] Performing Organization Address City/[facility]/ZIP Co de Phone Number [address] [address], [facility] [phone] * (ABNORMAL) CBC W/O DIFFERENTIAL (08/20/2020 4:03 AM CDT) WBC 9.5 3.5 - 10.5 10? 3 /uL 08/20/2020 4:38 AM CDT [facility] RBC 4.85 4.30 - 5.70 10? 6 /uL 08/20/2020 4:38 AM [facility] Hemoglobin 15.9 13.5 - 17.5 g/dL 08/20/2020 4:38 AM T [facility] Hematocrit 45.6 39.0 - 50.0 % 08/20/2020 4:38 AM [facility] MCV 94.0 81.0 - 97.0 fL 08/20/2020 4:38 AM [facility] MCH 32.8 28.0 - 34.0 pg 08/20/2020 4:38 AM [facility] MCHC 34.9 32.0 - 36.0 g/dL 08/20/2020 4:38 AM [facility] Platelet Count 121(L) 150 - 400 10? 3 /uL 08/20/2020 4:38 AM [facility] RDW-SD 40.6 36.0 - 50.0 fL 08/20/2020 4:38 AM [facility] RDW-CV 11.8 11.2 - 14.8 % 08/20/2020 4:38 AM [facility] MPV 12.4 9.3 - 12.8 fL 08/20/2020 4:38 AM [facility] nRBC Absolute 0.00 0 10? 3 /uL 08/20/2020 4:38 AM [facility] nRBC Auto 0.0 0 /100 WBC 08/20/2020 4:38 AM [facility] Blood BLOOD SPECIMEN / Unknown Lab Venipuncture / Unknown 08/20/2020 4:03 AM CDT 08/20/2020 4:26 AM T Baldev Carl MD LAB - HEMATOLOGY ORD ERABLES [facility] [address] [place] [phone], [facility] [phone] * (ABNORMAL) URINALYSIS REFLEX TO MICROSCOPIC NO CULTURE (08/19/2020 5:42 PM CDT) Color UA Olivia(A) Straw, Yellow, Colorless 08/19/2020 6:23 PM [facility] Clarity UA Slt Cloudy Clear, Slt Cloudy 08/19/2020 6:23 PM [facility] Specific Girard UA 1.030 1.005 - 1.030 08/19/2020 6:23 PM [facility] pH UA 5.0 5.0 - 8.0 pH 08/19/2020 6:23 PM [facility] Protein UA 1+(A) Negative mg/dL 08/19/2020 6:23 PM CDT [facility] Glucose UA Negative Negative mg/dL 08/19/2020 6:23 PM [facility] Ketone UA Trace(A) Negative mg/dL 08/19/2020 6:23 PM [facility] Bilirubin UA Negative Negative mg/dL 08/19/2020 6:23 PM [facility] Comment:Urine Bilirubin resu lt confirmed by manual Ictotest. Blood UA Negative Negative 08/19/2020 6:23 PM [facility] Nitrite UA Negative Negative 08/19/2020 6:23 PM [facility] Leukocyte Esterase 1+(A) Negative 08/19/2020 6:23 PM [facility] Urobilinogen UA 4.0(A) Negative mg/dL 08/19/2020 6:23 PM [facility] RBC UA 3-5 None Seen, 0-2, 3-5 /HPF 08/19/2020 6:23 PM [facility] WBC UA 11-20(A) None Seen, 0-5 /HPF 08/19/2020 6:23 PM [facility] Bacteria UA 1+(A) None, Trace /HPF 08/19/2020 6:23 PM [facility] Sperm UA Present(A) Absent /HPF 08/19/2020 6:23 PM [facility] Squamous Epithelial Cells UA 0-2 None Seen, 0-2 /HPF 08/19/2020 6:23 PM [facility] Mucus UA 3+(A) None, 1+ /LPF 08/19/2020 6:23 PM [facility] Hyaline Casts UA 0-2 None Seen, 0-2 /LPF 08/19/2020 6:23 PM [facility] Urine URINE SPECIMEN OBTAINED BY CLEAN CATCH PROCEDURE / Unknown Collection / Unknown 08/19/2020 5:42 PM CDT 08/19/2020 5:57 PM CDT [facility] - 08/19/2020 6:23 PM CDT Baldev Carl MD LAB - URINALYSIS ORD ERABLES [facility] [address] [address] [phone] * (ABNORMAL) CBC W AUTO DIFFERENTIAL (08/19/2020 12:54 PM T) WBC 10.2 3.5 - 10.5 10? 3 /uL 08/19/2020 1:47 PM [facility] Comment:All CBC parameters h ave been checked. RBC 4.79 4.30 - 5.70 10? 6 /uL 08/19/2020 1:47 PM [facility] Hemoglobin 15.5 13.5 - 17.5 g/dL 08/19/2020 1:47 PM [facility] Hematocrit 46.2 39.0 - 50.0 % 08/19/2020 1:47 PM [facility] MCV 96.5 81.0 - 97.0 fL 08/19/2020 1:47 PM [facility] MCH 32.4 28.0 - 34.0 pg 08/19/2020 1:47 PM [facility] MCHC 33.5 32.0 - 36.0 g/dL 08/19/2020 1:47 PM [facility] Platelet Count 86(L) 150 - 400 10? 3 /uL 08/19/2020 1:47 PM [facility] Comment:Checked with the pre vious result. RDW-SD 41.2 36.0 - 50.0 fL 08/19/2020 1:47 PM [facility] RDW-CV 11.7 11.2 - 14.8 % 08/19/2020 1:47 PM [facility] MPV 12.3 9.3 - 12.8 fL 08/19/2020 1:47 PM [facility] nRBC Absolute 0.00 0 10? 3 /uL 08/19/2020 1:47 PM [facility] nRBC Auto 0.0 0 /100 WBC 08/19/2020 1:47 PM [facility] Neutrophils % 72.1(H) 35.0 - 70.0 % 08/19/2020 1:47 PM [facility] Lymphocytes % 12.2(L) 19.7 - 55.1 % 08/19/2020 1:47 PM CDT [facility] Monocytes % 14.5 3.0 - 15.0 % 08/19/2020 1:47 PM T [facility] Eosinophils % 0.4 0.0 - 6.0 % 08/19/2020 1:47 PM T [facility] Basophil % 0.3 0.0 - 1.5 % 08/19/2020 1:47 PM T [facility] Neutrophils Absolute 7.4(H) 1.6 - 7.0 10? 3 /uL 08/19/2020 1:47 PM T [facility] Lymphocyte Absolute 1.3 0.8 - 2.9 10? 3 /uL 08/19/2020 1:47 PM T [facility] Monocytes Absolute 1.48(H) 0.14 - 0.66 10? 3 /uL 08/19/2020 1:47 PM T [facility] Eosinophils Absolute 0.04 0.00 - 0.45 10? 3 /uL 08/19/2020 1:47 PM T [facility] Basophils Absolute 0.03 0.00 - 0.06 10? 3 /uL 08/19/2020 1:47 PM [facility] Immature Granulocytes % 0.5 0.0 - 1.0 % 08/19/2020 1:47 PM [facility] Blood BLOOD SPECIMEN / Unknown Lab Venipuncture / Unknown 08/19/2020 12:54 PM CDT 08/19/2020 1:09 PM CDT Baldev Carl MD LAB - HEMATOLOGY ORD ERABLES [facility] [address] [place] [address], [facility] [phone] * XR CHEST 1VW PORTABLE (08/19/2020 9:02 AM CDT) Anatomical Region Laterality Modality Chest Radiographic Cynthia ging 08/19/2020 9:05 AM CDT Impressions 08/23/2020 6:41 AM CDT FINDINGS/IMPRESSION: Mild bibasilar opacities, likely atelectasis. There is otherwise no focal consolidation, pleural effusion, or pneumothorax. The cardiomediastinal silhouette is normal. The visible bony thorax is intact. Dictated by Brandee Celestin MD (residential life director). This report was approved ??by Brandee Celestin ?? on 08/23/2020 6:[address] WOJCIECH Thomason have personally reviewed and interpreted this examination/study. This report was electronically signed by WOJCIECH ZAMBRANO ??on 08/23/2020 6:41 AM . Narrative 08/23/2020 6:41 AM CDT XR CHEST 1VW PORTABLE DATE: 08/19/2020 9:02 AM EXAMINATION: XR CHEST 1VW PORTABLE HISTORY: R56.9: Seizure COMPARISON: Chest x-ray dated 08/13/2020 Procedure Note Wojciech Zambrano MD - 08/23/2020 XR CHEST 1VW PORTABLE DATE: 08/19/2020 9:02 AM EXAMINATION: XR CHEST 1VW PORTABLE HISTORY: R56.9: Seizure COMPARISON: Chest x-ray dated 08/13/2020 FINDINGS/IMPRESSION: Mild bibasilar opacities, likely atelectasis. There is otherwise nofocal consolidation, pleural effusion, or pneumothorax. The cardiomediastinal silhouette is normal. The visible bony thorax is intact. Dictated by Brandee Celestin MD (residential life director). This report was approved by Brandee Celestin on 08/23/2020 6:41 AM . I, Dr. WOJCIECH ZAMBRANO have personally reviewed and interpreted this examination/study. This report was electronically signed by WOJCIECH ZAMBRANO on08/23/2020 6:41 AM . Baldev Carl MD DIAGNOSTIC IMAGING O RDERABLES * GLUCOSE - POINT OF CARE (08/18/2020 4:39 PM CDT) Glucose WB/POC 98 70 - 115 mg/dL 08/18/2020 4:40 PM CDT [facility] Specimen Type Arterial/C apillary 08/18/2020 4:40 PM CDT [facility] Blood BLOOD SPECIMEN / Unknown 08/18/2020 4:39 PM CDT 08/18/2020 4:40 PM CDT Baldev Carl MD LAB - POINT OF CARE ORDERABLES [address] [address], [place] [phone] * GLUCOSE - POINT OF CARE (08/18/2020 12:38 PM CDT) Glucose WB/POC 94 70 - 115 mg/dL 08/18/2020 12:43 PM CDT [facility] Specimen Type Arterial/C apillary 08/18/2020 12:43 PM CDT [facility] Blood BLOOD SPECIMEN / Unknown 08/18/2020 12:38 PM CDT 08/18/2020 12:43 PM CDT Baldev Carl MD LAB - POINT OF CARE ORDERABLES Performing Organization Address City/[facility]/ZIP Co de Phone Number [address] [address], [place] [phone] * GLUCOSE - POINT OF CARE (08/18/2020 9:21 AM CDT) Glucose WB/POC 88 70 - 115 mg/dL 08/18/2020 9:26 AM CDT [facility] Specimen Type Arterial/C apillary 08/18/2020 9:26 AM CDT [facility] Blood BLOOD SPECIMEN / Unknown 08/18/2020 9:21 AM CDT 08/18/2020 9:25 AM CDT Baldev Carl MD LAB - POINT OF CARE ORDERABLES [address] [address], [place] [phone] * GLUCOSE - POINT OF CARE (08/18/2020 9:17 AM CDT) Glucose WB/POC 89 70 - 115 mg/dL 08/18/2020 9:26 AM CDT [facility] Specimen Type Arterial/C apillary 08/18/2020 9:26 AM CDT [facility] Blood BLOOD SPECIMEN / Unknown 08/18/2020 9:17 AM CDT 08/18/2020 9:25 AM CDT Baldev Carl MD LAB - POINT OF CARE ORDERABLES [address] [address], [place] [phone] * (ABNORMAL) GLUCOSE - POINT OF CARE (08/17/2020 8:31 PM CDT) Glucose WB/POC 124(H) 70 - 115 mg/dL 08/17/2020 8:35 PM CDT [facility] Specimen Type Arterial/C apillary 08/17/2020 8:35 PM CDT [facility] Blood BLOOD SPECIMEN / Unknown 08/17/2020 8:31 PM CDT 08/17/2020 8:35 PM CDT Baldev Carl MD LAB - POINT OF CARE ORDERABLES [address] [address], [place] [phone] * VALPROIC ACID LEVEL (08/17/2020 2:55 PM CDT) Valproic Acid Total 92 50 - 100 mcg/mL 08/17/2020 8:49 PM CDT [facility] Blood BLOOD SPECIMEN / Unknown Lab Venipuncture / Unknown 08/17/2020 2:55 PM CDT 08/17/2020 3:02 PM CDT Baldev Carl MD LAB - CHEMISTRY [facility] [address] [place] [address], [facility] [phone] * (ABNORMAL) MAGNESIUM BLOOD (08/17/2020 2:55 PM CDT) Pathologist [facility] Magnesium 2.9(H) 1.6 - 2.6 mg/dL 08/17/2020 4:13 PM CDT [facility] Blood BLOOD SPECIMEN / Unknown Lab Venipuncture / Unknown 08/17/2020 2:55 PM CDT 08/17/2020 3:02 PM CDT Baldev Carl MD LAB - CHEMISTRY [facility] Organization Address City/State/ZIP Co de Phone Number [address] [address], [facility] [phone] * (ABNORMAL) BASIC METABOLIC PANEL (CALCIUM TOTAL) (08/17/2020 2:55 PM CDT) [facility] BUN 10 7 - 26 mg/dL 08/17/2020 4:12 PM T [facility] Creatinine 1.0 0.6 - 1.2 mg/dL 08/17/2020 4:12 PM [facility] Sodium 145 136 - 145 mmol/L 08/17/2020 4:12 PM [facility] Potassium 3.8 3.5 - 4.5 mmol/L 08/17/2020 4:12 PM [facility] Chloride 107 98 - 107 mmol/L 08/17/2020 4:12 PM [facility] CO2 26 22 - 29 mmol/L 08/17/2020 4:12 PM [facility] Glucose 119(H) 70 - 115 mg/dL 08/17/2020 4:12 PM [facility] Calcium 8.8 8.4 - 10.2 mg/dL 08/17/2020 4:12 PM [facility] Anion Gap 16 8 - 18 08/17/2020 4:12 PM [facility] BUN/Creatinine Ratio 10 7 - 23 08/17/2020 4:12 PM [facility] Osmolality Calculated 300 270 - 300 mOsm/kg 08/17/2020 4:12 PM [facility] eGFR >60 >60 mL/min/1.7 3 m2 08/17/2020 4:12 PM [facility] Blood BLOOD SPECIMEN / Unknown Lab Venipuncture / Unknown 08/17/2020 2:55 PM CDT 08/17/2020 3:02 PM CDT Baldev Carl MD LAB - CHEMISTRY [facility] Organization Address City/State/ZIP Co de Phone Number [facility] [address] [place] [address], [facility] [phone] * CBC W AUTO DIFFERENTIAL (08/17/2020 2:55 PM CDT) WBC 5.8 3.5 - 10.5 10? 3 /uL 08/17/2020 3:27 PM [facility] RBC 4.67 4.30 - 5.70 10? 6 /uL 08/17/2020 3:27 PM [facility] Hemoglobin 15.1 13.5 - 17.5 g/dL 08/17/2020 3:27 PM [facility] Hematocrit 44.3 39.0 - 50.0 % 08/17/2020 3:27 PM [facility] MCV 94.9 81.0 - 97.0 fL 08/17/2020 3:27 PM [facility] MCH 32.3 28.0 - 34.0 pg 08/17/2020 3:27 PM [facility] MCHC 34.1 32.0 - 36.0 g/dL 08/17/2020 3:27 PM [facility] Platelet Count 08/17/2020 3:27 PM [facility] Comment:Platelets are clumpe d, appear as decreased on the slide. A blue top citrated tube is required for a platelet count. Notified Esperanza SIMON at 3:26 PM on 08/17/2020. RDW-SD 39.6 36.0 - 50.0 fL 08/17/2020 3:27 PM [facility] RDW-CV 11.4 11.2 - 14.8 % 08/17/2020 3:27 PM [facility] MPV 12.0 9.3 - 12.8 fL 08/17/2020 3:27 PM [facility] nRBC Absolute 0.00 0 10? 3 /uL 08/17/2020 3:27 PM [facility] nRBC Auto 0.0 0 /100 WBC 08/17/2020 3:27 PM [facility] Neutrophils % 51.8 35.0 - 70.0 % 08/17/2020 3:27 PM [facility] Lymphocytes % 36.5 19.7 - 55.1 % 08/17/2020 3:27 PM [facility] Monocytes % 6.2 3.0 - 15.0 % 08/17/2020 3:27 PM [facility] Eosinophils % 5.0 0.0 - 6.0 % 08/17/2020 3:27 PM [facility] Basophil % 0.3 0.0 - 1.5 % 08/17/2020 3:27 PM [facility] Neutrophils Absolute 3.0 1.6 - 7.0 10? 3 /uL 08/17/2020 3:27 PM [facility] Lymphocyte Absolute 2.1 0.8 - 2.9 10? 3 /uL 08/17/2020 3:27 PM [facility] Monocytes Absolute 0.36 0.14 - 0.66 10? 3 /uL 08/17/2020 3:27 PM [facility] Eosinophils Absolute 0.29 0.00 - 0.45 10? 3 /uL 08/17/2020 3:27 PM [facility] Basophils Absolute 0.02 0.00 - 0.06 10? 3 /uL 08/17/2020 3:27 PM [facility] Immature Granulocytes % 0.2 0.0 - 1.0 % 08/17/2020 3:27 PM [facility] Blood BLOOD SPECIMEN / Unknown Lab Venipuncture / Unknown 08/17/2020 2:55 PM CDT 08/17/2020 3:02 PM CDT Aninda B Siddhartha MD LAB - HEMATOLOGY ORD ERABLES [address] [address], [place] [phone] * GLUCOSE - POINT OF CARE (08/16/2020 4:12 PM CDT) Glucose WB/POC 98 70 - 115 mg/dL 08/16/2020 4:18 PM CDT [facility] Specimen Type Arterial/C apillary 08/16/2020 4:18 PM CDT [facility] Blood BLOOD SPECIMEN / Unknown 08/16/2020 4:12 PM CDT 08/16/2020 4:17 PM CDT Baldev Carl MD LAB - POINT OF CARE ORDERABLES [address] [address], [place] [phone] * VALPROIC ACID LEVEL (08/16/2020 3:42 PM CDT) Valproic Acid Total 64 50 - 100 mcg/mL 08/16/2020 4:28 PM CDT [facility] Blood BLOOD SPECIMEN / Unknown Lab Venipuncture / Unknown 08/16/2020 3:42 PM CDT 08/16/2020 4:02 PM CDT Baldev Carl MD LAB - CHEMISTRY [facility] [address] [address], [place] [phone] * GLUCOSE - POINT OF CARE (08/16/2020 12:01 PM CDT) Glucose WB/POC 100 70 - 115 mg/dL 08/16/2020 12:06 PM CDT [facility] Specimen Type Arterial/C apillary 08/16/2020 12:06 PM CDT [facility] Blood BLOOD SPECIMEN / Unknown 08/16/2020 12:01 PM CDT 08/16/2020 12:06 PM CDT Baldev Carl MD LAB - POINT OF CARE ORDERABLES [address] [address], [place] [phone] * GLUCOSE - POINT OF CARE (08/16/2020 8:27 AM CDT) Glucose WB/POC 81 70 - 115 mg/dL 08/16/2020 8:37 AM CDT [facility] Specimen Type Arterial/C apillary 08/16/2020 8:37 AM CDT [facility] Blood BLOOD SPECIMEN / Unknown 08/16/2020 8:27 AM CDT 08/16/2020 8:37 AM CDT Baldev Carl MD LAB - POINT OF CARE ORDERABLES [address] [address], [place] [phone] * VALPROIC ACID LEVEL (08/16/2020 12:47 AM CDT) Valproic Acid Total 64 50 - 100 mcg/mL 08/16/2020 3:21 AM CDT [facility] Blood BLOOD SPECIMEN / Unknown Lab Venipuncture / Unknown 08/16/2020 12:47 AM CDT 08/16/2020 2:51 AM CDT Baldev Carl MD LAB - CHEMISTRY ORDByron MEDEROS [address] [address], [place] [phone] * MAGNESIUM BLOOD (08/16/2020 12:47 AM CDT) Magnesium 1.6 1.6 - 2.6 mg/dL 08/16/2020 3:21 AM CDT [facility] Blood BLOOD SPECIMEN / Unknown Lab Venipuncture / Unknown 08/16/2020 12:47 AM CDT 08/16/2020 2:51 AM CDT Baldev Carl MD LAB - CHEMISTRY [facility] Organization Address City/State/ZIP Co de Phone Number [facility] [address] [place] [address], [facility] [phone] * (ABNORMAL) BASIC METABOLIC PANEL (CALCIUM TOTAL) (08/16/2020 12:47 AM CDT) BUN 11 7 - 26 mg/dL 08/16/2020 3:21 AM [facility] Creatinine 0.7 0.6 - 1.2 mg/dL 08/16/2020 3:21 AM [facility] Sodium 141 136 - 145 mmol/L 08/16/2020 3:21 AM [facility] Potassium 3.6 3.5 - 4.5 mmol/L 08/16/2020 3:21 AM [facility] Chloride 107 98 - 107 mmol/L 08/16/2020 3:21 AM [facility] CO2 24 22 - 29 mmol/L 08/16/2020 3:21 AM [facility] Glucose 69(L) 70 - 115 mg/dL 08/16/2020 3:21 AM [facility] Calcium 8.8 8.4 - 10.2 mg/dL 08/16/2020 3:21 AM [facility] Anion Gap 14 8 - 18 08/16/2020 3:21 AM [facility] BUN/Creatinine Ratio 16 7 - 23 08/16/2020 3:21 AM [facility] Osmolality Calculated 290 270 - 300 mOsm/kg 08/16/2020 3:21 AM [facility] eGFR >60 >60 mL/min/1.7 3 m2 08/16/2020 3:21 AM [facility] Blood BLOOD SPECIMEN / Unknown Lab Venipuncture / Unknown 08/16/2020 12:47 AM CDT 08/16/2020 2:51 AM CDT Baldev Carl MD LAB - CHEMISTRY [facility]ER[facility] Organization Address City/State/ZIP Co de Phone Number [facility] [address] [place] [phone] [phone] * (ABNORMAL) CBC W AUTO DIFFERENTIAL (08/16/2020 12:47 AM CDT) WBC 6.2 3.5 - 10.5 10? 3 /uL 08/16/2020 3:01 AM [facility] RBC 4.16(L) 4.30 - 5.70 10? 6 /uL 08/16/2020 3:01 AM [facility] Hemoglobin 13.5 13.5 - 17.5 g/dL 08/16/2020 3:01 AM [facility] Hematocrit 39.6 39.0 - 50.0 % 08/16/2020 3:01 AM [facility] MCV 95.2 81.0 - 97.0 fL 08/16/2020 3:01 AM [facility] MCH 32.5 28.0 - 34.0 pg 08/16/2020 3:01 AM [facility] MCHC 34.1 32.0 - 36.0 g/dL 08/16/2020 3:01 AM [facility] Platelet Count 127(L) 150 - 400 10? 3 /uL 08/16/2020 3:01 AM [facility] RDW-SD 39.2 36.0 - 50.0 fL 08/16/2020 3:01 AM [facility] RDW-CV 11.2 11.2 - 14.8 % 08/16/2020 3:01 AM [facility] MPV 12.6 9.3 - 12.8 fL 08/16/2020 3:01 AM [facility] nRBC Absolute 0.00 0 10? 3 /uL 08/16/2020 3:01 AM [facility] nRBC Auto 0.0 0 /100 WBC 08/16/2020 3:01 AM [facility] Neutrophils % 56.8 35.0 - 70.0 % 08/16/2020 3:01 AM [facility] Lymphocytes % 31.1 19.7 - 55.1 % 08/16/2020 3:01 AM [facility] Monocytes % 7.9 3.0 - 15.0 % 08/16/2020 3:01 AM [facility] Eosinophils % 3.7 0.0 - 6.0 % 08/16/2020 3:01 AM [facility] Basophil % 0.2 0.0 - 1.5 % 08/16/2020 3:01 AM [facility] Neutrophils Absolute 3.5 1.6 - 7.0 10? 3 /uL 08/16/2020 3:01 AM [facility] Lymphocyte Absolute 1.9 0.8 - 2.9 10? 3 /uL 08/16/2020 3:01 AM [facility] Monocytes Absolute 0.49 0.14 - 0.66 10? 3 /uL 08/16/2020 3:01 AM [facility] Eosinophils Absolute 0.23 0.00 - 0.45 10? 3 /uL 08/16/2020 3:01 AM [facility] Basophils Absolute 0.01 0.00 - 0.06 10? 3 /uL 08/16/2020 3:01 AM [facility] Immature Granulocytes % 0.3 0.0 - 1.0 % 08/16/2020 3:01 AM [facility] Blood BLOOD SPECIMEN / Unknown Lab Venipuncture / Unknown 08/16/2020 12:47 AM CDT 08/16/2020 2:51 AM CDT Baldev Carl MD LAB - HEMATOLOGY ORD ERABLES [facility] [address] [place] [address], [facility] [phone] * GLUCOSE - POINT OF CARE (08/15/2020 9:44 PM CDT) [facility] Glucose WB/POC 83 70 - 115 mg/dL 08/15/2020 9:48 PM [facility] Specimen Type Arterial/C apillary 08/15/2020 9:48 PM CDT [facility] Blood BLOOD SPECIMEN / Unknown 08/15/2020 9:44 PM CDT 08/15/2020 9:48 PM CDT Baldev Carl MD LAB - POINT OF CARE ORDERABLES Performing Organization Address City/[facility]/ZIP Co de Phone Number [address] [address], [place] [phone] * GLUCOSE - POINT OF CARE (08/15/2020 5:45 PM CDT) Glucose WB/POC 91 70 - 115 mg/dL 08/15/2020 5:50 PM CDT [facility] Specimen Type Arterial/C apillary 08/15/2020 5:50 PM CDT [facility] Blood BLOOD SPECIMEN / Unknown 08/15/2020 5:45 PM CDT 08/15/2020 5:50 PM CDT Baldev Carl MD LAB - POINT OF CARE ORDERABLES Performing Organization Address City/[facility]/ZIP Co de Phone Number [address] [address], [place] [phone] * MRI BRAIN WO CONTRAST (08/15/2020 4:51 PM CDT) Anatomical Region Laterality Modality Head Magnetic Resonan [...] cerebral and cerebellar hemispheresand brainstem (particularly the isabella and midbrain). There is extensiveatrophy of the [...] . Baldev Carl MD MR ORDERABLES * (ABNORMAL) CBC W AUTO DIFFERENTIAL (08/15/2020 3:05 PM CDT) WBC 7.0 3.5 - 10.5 10? 3 /uL 08/15/2020 3:30 PM [facility] RBC 4.02(L) 4.30 - 5.70 10? 6 /uL 08/15/2020 3:30 PM [facility] Hemoglobin 13.4(L) 13.5 - 17.5 g/dL 08/15/2020 3:30 PM [facility] Hematocrit 38.8(L) 39.0 - 50.0 % 08/15/2020 3:30 PM [facility] MCV 96.5 81.0 - 97.0 fL 08/15/2020 3:30 PM [facility] MCH 33.3 28.0 - 34.0 pg 08/15/2020 3:30 PM [facility] MCHC 34.5 32.0 - 36.0 g/dL 08/15/2020 3:30 PM [facility] Platelet Count 127(L) 150 - 400 10? 3 /uL 08/15/2020 3:30 PM [facility] Comment:Confirmed by repeat analysis. RDW-SD 39.8 36.0 - 50.0 fL 08/15/2020 3:30 PM [facility] RDW-CV 11.2 11.2 - 14.8 % 08/15/2020 3:30 PM [facility] MPV 12.1 9.3 - 12.8 fL 08/15/2020 3:30 PM [facility] nRBC Absolute 0.00 0 10? 3 /uL 08/15/2020 3:30 PM [facility] nRBC Auto 0.0 0 /100 WBC 08/15/2020 3:30 PM CDT [facility] Neutrophils % 60.2 35.0 - 70.0 % 08/15/2020 3:30 PM CDT [facility] Lymphocytes % 29.9 19.7 - 55.1 % 08/15/2020 3:30 PM CDT [facility] Monocytes % 6.6 3.0 - 15.0 % 08/15/2020 3:30 PM CDT [facility] Eosinophils % 2.9 0.0 - 6.0 % 08/15/2020 3:30 PM CDT [facility] Basophil % 0.3 0.0 - 1.5 % 08/15/2020 3:30 PM CDT [facility] Neutrophils Absolute 4.2 1.6 - 7.0 10? 3 /uL 08/15/2020 3:30 PM CDT [facility] Lymphocyte Absolute 2.1 0.8 - 2.9 10? 3 /uL 08/15/2020 3:30 PM CDT [facility] Monocytes Absolute 0.46 0.14 - 0.66 10? 3 /uL 08/15/2020 3:30 PM CDT [facility] Eosinophils Absolute 0.20 0.00 - 0.45 10? 3 /uL 08/15/2020 3:30 PM CDT [facility] Basophils Absolute 0.02 0.00 - 0.06 10? 3 /uL 08/15/2020 3:30 PM CDT [facility] Immature Granulocytes % 0.1 0.0 - 1.0 % 08/15/2020 3:30 PM T [facility] Blood BLOOD SPECIMEN / Unknown Lab Venipuncture / Unknown 08/15/2020 3:05 PM CDT 08/15/2020 3:16 PM CDT Baldev Carl MD LAB - HEMATOLOGY ORD ERABLES [facility] [address] [place] [address], [facility] [phone] * GLUCOSE - POINT OF CARE (08/15/2020 12:47 PM CDT) Glucose WB/POC 86 70 - 115 mg/dL 08/15/2020 8:48 PM CDT [facility] Specimen Type Arterial/C apillary 08/15/2020 8:48 PM CDT [facility] Blood BLOOD SPECIMEN / Unknown 08/15/2020 12:47 PM CDT 08/15/2020 8:48 PM CDT Baldev Carl MD LAB - POINT OF CARE ORDERABLES [facility] [address] [place] [address], [facility] [phone] * XR ABDOMEN KUB PORTABLE (08/15/2020 10:33 AM CDT) Anatomical Region Laterality Modality Abdomen Radiographic Cynthia ging 08/15/2020 10:3 4 AM CDT Impressions 08/15/2020 1:43 PM CDT IMPRESSION: 1.Nonobstructive bowel gas pattern. 2.No radiopaque foreign body visualized. Dictated by Brandee Celestin MD (residential life director). I, Dr. CHARLES GARSIA MD have personally reviewed and interpreted this examination/study. This report was electronically signed by CHARLES GARSIA MD ??on 08/15/2020 1:43 PM . Narrative 08/15/2020 1:43 PM CDT EXAMINATION: XR ABDOMEN KUB PORTABLE HISTORY: R56.9: Seizure. This exam is required before MRI brain to look for foreign bodies. COMPARISON: CT angiogram abdomen dated 07/02/2019. FINDINGS: There are no abnormally dilated bowel loops. No pathologic calcifications are demonstrated. Free air cannot be excluded on this supine exam. The visible osseous structures are intact. The lung bases are normal. Procedure Note Charles Garsia MD - 08/15/2020 EXAMINATION: XR ABDOMEN KUB PORTABLE HISTORY: R56.9: Seizure. This exam is required before MRI brain to look for foreign bodies. COMPARISON: CT angiogram abdomen dated 07/02/2019. FINDINGS: There are no abnormally dilated bowel loops. No pathologiccalcifications are demonstrated. Free air cannot be excluded on this supine exam. The visible osseous structures are intact. The lung bases are normal. IMPRESSION: 1.Nonobstructive bowel gas pattern. 2.No radiopaque foreign body visualized. Dictated by Brandee Celestin MD (residential life director). Dr. CHARLES Thomason MD have personally reviewed and interpreted this examination/study. This report was electronically signed by CHARLES GARSIA MD on08/15/2020 1:43 PM . Baldev Carl MD DIAGNOSTIC IMAGING O RDERABLES * XR PELVIS 1 OR 2VW (08/15/2020 10:33 AM CDT) Anatomical Region Laterality Modality Pelvis Radiographic Cynthia ging 08/15/2020 10:3 4 AM CDT Impressions 08/15/2020 1:42 PM CDT IMPRESSION: 1.No acute fracture or dislocation identified. 2.No radiopaque foreign body visualized. Dictated by Brandee Celestin MD (residential life director). Dr. CHARLES Thomason MD have personally reviewed and interpreted [...] visualized. Dictated by Brandee Celestin MD (residential life director). I, Dr. CHARLES GARSIA MD have personally reviewed and interpreted this examination/study. This report was electronically signed by CHARLES GARSIA MD on08/15/2020 1:42 PM . Baldev Carl MD DIAGNOSTIC IMAGING O RDERABLES * HEPARIN PLATELET INDUCED ANTIBODY (08/15/2020 9:08 AM CDT) Interpretation Heparin Platelet Antibody Negative Negative 08/15/2020 1:29 PM CDT [facility] Comment:Heparin induced thro mbocytopenia (HIT) is unlikely in the presence of a negative HIT antibody test result by VLADISLAV and low pretest probability for type II HIT (scoring system of [place]). It is suggested to verify positive HIT VLADISLAV antibody test results by HIT Antibody Serotonin Release Assay. HIT VLADISLAV Patient OD 0.142 <0.400 OD 08/15/2020 1:29 PM CDT [facility] Blood BLOOD SPECIMEN / Unknown Lab Venipuncture / Unknown 08/15/2020 9:08 AM CDT 08/15/2020 9:30 AM CDT Baldev Carl MD LAB - CHEMISTRY [facility] [address] [address], [facility] [phone] * MAGNESIUM BLOOD (08/15/2020 8:10 AM CDT) Magnesium 1.8 1.6 - 2.6 mg/dL 08/15/2020 8:45 AM CDT [facility] Blood BLOOD SPECIMEN / Unknown Lab Venipuncture / Unknown 08/15/2020 8:10 AM CDT 08/15/2020 8:19 AM CDT Baldev Carl MD LAB - CHEMISTRY [facility] [address] [address], [place] [phone] * BASIC METABOLIC PANEL (CALCIUM TOTAL) (08/15/2020 8:10 AM CDT) Pathologist [facility] BUN 15 7 - 26 mg/dL 08/15/2020 8:45 AM [facility] Creatinine 0.8 0.6 - 1.2 mg/dL 08/15/2020 8:45 AM [facility] Sodium 142 136 - 145 mmol/L 08/15/2020 8:45 AM [facility] Potassium 4.0 3.5 - 4.5 mmol/L 08/15/2020 8:45 AM [facility] Chloride 107 98 - 107 mmol/L 08/15/2020 8:45 AM [facility] CO2 25 22 - 29 mmol/L 08/15/2020 8:45 AM [facility] Glucose 79 70 - 115 mg/dL 08/15/2020 8:45 AM [facility] Calcium 8.9 8.4 - 10.2 mg/dL 08/15/2020 8:45 AM [facility] Anion Gap 14 8 - 18 08/15/2020 8:45 AM [facility] BUN/Creatinine Ratio 19 7 - 23 08/15/2020 8:45 AM [facility] Osmolality Calculated 294 270 - 300 mOsm/kg 08/15/2020 8:45 AM [facility] eGFR >60 >60 mL/min/1.7 3 m2 08/15/2020 8:45 AM [facility] Blood BLOOD SPECIMEN / Unknown Lab Venipuncture / Unknown 08/15/2020 8:10 AM CDT 08/15/2020 8:19 AM CDT Baldev Carl MD LAB - CHEMISTRY MARSHAL MEDEROS [facility] Organization Address City/State/ZIP Co de Phone Number [facility] [address] [address], [facility] [phone] * (ABNORMAL) VALPROIC ACID LEVEL (08/15/2020 8:10 AM CDT) Pathologist [facility] Valproic Acid Total <13(L) 50 - 100 mcg/mL 08/15/2020 8:45 AM CDT [facility] Blood BLOOD SPECIMEN / Unknown Lab Venipuncture / Unknown 08/15/2020 8:10 AM CDT 08/15/2020 8:19 AM CDT Baldev Carl MD LAB - CHEMISTRY [facility] [address] [address], [place] [phone] * GLUCOSE - POINT OF CARE (08/15/2020 8:05 AM CDT) Glucose WB/POC 87 70 - 115 mg/dL 08/15/2020 8:10 AM CDT [facility] Specimen Type Arterial/C apillary 08/15/2020 8:10 AM CDT [facility] Blood BLOOD SPECIMEN / Unknown 08/15/2020 8:05 AM CDT 08/15/2020 8:10 AM CDT Baldev Carl MD LAB - POINT OF CARE ORDERABLES Performing Organization Address City/[facility]/ZIP Co de Phone Number [address] [address], [place] [phone] * GLUCOSE - POINT OF CARE (08/14/2020 9:42 PM CDT) Glucose WB/POC 80 70 - 115 mg/dL 08/14/2020 9:49 PM CDT [facility] Specimen Type Arterial/C apillary 08/14/2020 9:49 PM CDT [facility] Blood BLOOD SPECIMEN / Unknown 08/14/2020 9:42 PM CDT 08/14/2020 9:49 PM CDT Baldev Carl MD LAB - POINT OF CARE ORDERABLES [address] [address], [place] [phone] * GLUCOSE - POINT OF CARE (08/14/2020 5:16 PM CDT) Glucose WB/POC 95 70 - 115 mg/dL 08/14/2020 5:20 PM CDT [facility] Specimen Type Arterial/C apillary 08/14/2020 5:20 PM CDT [facility] Blood BLOOD SPECIMEN / Unknown 08/14/2020 5:16 PM CDT 08/14/2020 5:20 PM CDT Baldev Carl MD LAB - POINT OF CARE ORDERABLES [address] [address], [place] [phone] * GLUCOSE - POINT OF CARE (08/14/2020 12:06 PM CDT) Glucose WB/POC 76 70 - 115 mg/dL 08/14/2020 12:11 PM CDT [facility] Specimen Type Arterial/C apillary 08/14/2020 12:11 PM CDT [facility] Blood BLOOD SPECIMEN / Unknown 08/14/2020 12:06 PM CDT 08/14/2020 12:11 PM CDT Baldev Carl MD LAB - POINT OF CARE ORDERABLES [address] [address], [place] [phone] * GLUCOSE - POINT OF CARE (08/14/2020 9:09 AM CDT) Glucose WB/POC 81 70 - 115 mg/dL 08/14/2020 9:14 AM CDT [facility] Specimen Type Arterial/C apillary 08/14/2020 9:14 AM CDT [facility] Blood BLOOD SPECIMEN / Unknown 08/14/2020 9:09 AM CDT 08/14/2020 9:14 AM CDT Baldev Carl MD LAB - POINT OF CARE ORDERABLES [address] [address], [place] [phone] * VALPROIC ACID LEVEL (08/14/2020 6:00 AM CDT) Valproic Acid Total 89 50 - 100 mcg/mL 08/14/2020 8:27 AM CDT [facility] Blood BLOOD SPECIMEN / Unknown Lab Venipuncture / Unknown 08/14/2020 6:00 AM CDT 08/14/2020 8:15 AM CDT Baldev Carl MD LAB - CHEMISTRY ORDE RABLES Performing Organization Address City/[facility]/ZIP Co de Phone Number [address] [address], [place] [phone] * PHOSPHORUS BLOOD (08/14/2020 6:00 AM CDT) Phosphorus 3.2 2.3 - 4.7 mg/dL 08/14/2020 7:01 AM CDT [facility] Blood BLOOD SPECIMEN / Unknown Lab Venipuncture / Unknown 08/14/2020 6:00 AM CDT 08/14/2020 6:21 AM CDT Shane Fajardo MD LAB - CHEMISTRY OR DERABLES Performing Organization Address City/[facility]/ZIP Co de Phone Number [address] [address], [place] [phone] * MAGNESIUM BLOOD (08/14/2020 6:00 AM CDT) Magnesium 08/14/2020 7:01 AM CDT [facility] Comment:Hemolysis detected i n this specimen. Hemolysis is known to cause elevations in this analyte. Caution should be exercised in the interpretation of this result. Recommend repeat testing if clinically indicated. Blood BLOOD SPECIMEN / Unknown Lab Venipuncture / Unknown 08/14/2020 6:00 AM CDT 08/14/2020 6:21 AM T Shane Fajardo MD LAB - CHEMISTRY OR DERABLES [facility] [address] [place] [address], [facility] [phone] * (ABNORMAL) BASIC METABOLIC PANEL (CALCIUM TOTAL) (08/14/2020 6:00 AM CDT) BUN 14 7 - 26 mg/dL 08/14/2020 7:01 AM [facility] Creatinine 1.0 0.6 - 1.2 mg/dL 08/14/2020 7:01 AM [facility] Sodium 146(H) 136 - 145 mmol/L 08/14/2020 7:01 AM [facility] Potassium 4.4 3.5 - 4.5 mmol/L 08/14/2020 7:01 AM [facility] Comment: Hemolysis detected in this specimen. ??Hemolysis is known to cause elevations in this analyte. ??Caution should be exercised in the interpretation of this result. ??Recommend repeat testing if clinically indicated. Hemolysis detected in this specimen. Hemolysis is known to cause elevations in this analyte. Caution should be exercised in the interpretation of this result. Recommend repeat testing if clinically indicated. Chloride 110(H) 98 - 107 mmol/L 08/14/2020 7:01 AM [facility] CO2 23 22 - 29 mmol/L 08/14/2020 7:01 AM [facility] Glucose 79 70 - 115 mg/dL 08/14/2020 7:01 AM [facility] Calcium 9.3 8.4 - 10.2 mg/dL 08/14/2020 7:01 AM [facility] Anion Gap 17 8 - 18 08/14/2020 7:01 AM [facility] BUN/Creatinine Ratio 14 7 - 23 08/14/2020 7:01 AM [facility] Osmolality Calculated 301(H) 270 - 300 mOsm/kg 08/14/2020 7:01 AM [facility] eGFR >60 >60 mL/min/1. 73 m2 08/14/2020 7:01 AM [facility] Blood BLOOD SPECIMEN / Unknown Lab Venipuncture / Unknown 08/14/2020 6:00 AM CDT 08/14/2020 6:21 AM CDT Shane Fajardo MD LAB - CHEMISTRY OR DERABLES Performing Organization Address [facility] Co de Phone Number [facility] [address] [place] [address] [phone] * (ABNORMAL) CBC W/O DIFFERENTIAL (08/14/2020 6:00 AM CDT) WBC 8.7 3.5 - 10.5 10? 3 /uL 08/14/2020 6:54 AM [facility] Comment:All CBC parameters h ave been checked. RBC 4.77 4.30 - 5.70 10? 6 /uL 08/14/2020 6:54 AM [facility] Hemoglobin 15.5 13.5 - 17.5 g/dL 08/14/2020 6:54 AM [facility] Hematocrit 46.0 39.0 - 50.0 % 08/14/2020 6:54 AM [facility] MCV 96.4 81.0 - 97.0 fL 08/14/2020 6:54 AM [facility] MCH 32.5 28.0 - 34.0 pg 08/14/2020 6:54 AM [facility] MCHC 33.7 32.0 - 36.0 g/dL 08/14/2020 6:54 AM [facility] Platelet Count 74(L) 150 - 400 10? 3 /uL 08/14/2020 6:54 AM [facility] Comment:Checked with the pre vious result. RDW-SD 40.9 36.0 - 50.0 fL 08/14/2020 6:54 AM [facility] RDW-CV 11.5 11.2 - 14.8 % 08/14/2020 6:54 AM [facility] MPV 13.3(H) 9.3 - 12.8 fL 08/14/2020 6:54 AM [facility] nRBC Absolute 0.00 0 10? 3 /uL 08/14/2020 6:54 AM CDT [facility] nRBC Auto 0.0 0 /100 WBC 08/14/2020 6:54 AM CDT [facility] Blood BLOOD SPECIMEN / Unknown Lab Venipuncture / Unknown 08/14/2020 6:00 AM CDT 08/14/2020 6:20 AM CDT Shane Fajardo MD LAB - HEMATOLOGY O RDERABLES [facility] [address] [place] [id number], [place] [phone] * GLUCOSE - POINT OF CARE (08/13/2020 10:12 PM CDT) Glucose WB/POC 105 70 - 115 mg/dL 08/14/2020 1:27 PM CDT [facility] Specimen Type Arterial/C apillary 08/14/2020 1:27 PM CDT [facility] Blood BLOOD SPECIMEN / Unknown 08/13/2020 10:12 PM CDT 08/14/2020 1:27 PM CDT Baldev Carl MD LAB - POINT OF CARE ORDERABLES Performing Organization Address City/[facility]/ZIP Co de Phone Number [facility] [address] [place] [id number], [place] [phone] * SARS-COV-2 (COVID-19)+INFLU A+B PCR RAPID (08/13/2020 6:50 PM CDT) COVID-19 PCR Not detected Not detected 08/14/19 7:43 PM CDT [facility] Influenza A Rapid BILLY Not Detected Not Detected 08/13/2020 7:43 PM CDT [facility] Influenza B BILLY Rapid Not Detected Not Detected 08/13/2020 7:43 PM CDT [facility] Microbiology SPECIMEN FROM NASOPHARYNGEAL STRUCTURE / Unknown Collection / Unknown 08/13/2020 6:50 PM CDT 08/13/2020 7:18 PM CDT Narrative [facility] - 08/13/2020 7:43 PM CDT Influenza assay performed by [employer] [...] acid amplification assay performance was validated by [facility]. This test has been authorized by [...] - MICROBIOLOGY O VANESSA Performing Organization Address City/State/[facility] Co de Phone Number [facility] [address] [place] [phone] [phone] * (ABNORMAL) URINALYSIS W/MICROSCOPIC NO CULTURE (08/13/2020 6:09 PM CDT) Color UA Yellow Straw, Yellow, Colorless 08/13/2020 6:29 PM CDT [facility] Clarity UA Clear Clear, Slt Cloudy 08/13/2020 6:29 PM CDT [facility] Specific Girard UA 1.025 1.005 - 1.030 08/13/2020 6:29 PM [facility] pH UA 6.0 5.0 - 8.0 pH 08/13/2020 6:29 PM [facility] Protein UA Negative Negative mg/dL 08/13/2020 6:29 PM [facility] Glucose UA Negative Negative mg/dL 08/13/2020 6:29 PM [facility] Ketone UA Trace(A) Negative mg/dL 08/13/2020 6:29 PM [facility] Bilirubin UA Negative Negative mg/dL 08/13/2020 6:29 PM [facility] Blood UA Negative Negative 08/13/2020 6:29 PM [facility] Nitrite UA Negative Negative 08/13/2020 6:29 PM [facility] Leukocyte Esterase Negative Negative 08/13/2020 6:29 PM [facility] Urobilinogen UA 4.0(A) Negative mg/dL 08/13/2020 6:29 PM [facility] RBC UA 0-2 None Seen, 0-2, 3-5 /HPF 08/13/2020 6:29 PM [facility] WBC UA 0-5 None Seen, 0-5 /HPF 08/13/2020 6:29 PM [facility] Squamous Epithelial Cells UA None Seen None Seen, 0-2 /HPF 08/13/2020 6:29 PM [facility] Mucus UA 1+ None, 1+ /LPF 08/13/2020 6:29 PM [facility] Urine URINE SPECIMEN OBTAINED BY SINGLE CATHETERIZATION OF URINARY BLADDER / Unknown Collection / Unknown 08/13/2020 6:09 PM CDT 08/13/2020 6:21 PM CDT [facility] - 08/13/2020 6:29 PM CDT Shane Fajardo MD LAB - URINALYSIS O RDERABLES [facility] [address] [place] [address], [place] [phone] * LACOSAMIDE (08/13/2020 5:00 PM CDT) Lacosamide 9.7 5.0 - 10.0 ug/mL 08/15/2020 6:35 PM CDT [facility] ([facility]) Comment: INTERPRETIVE INFORMATION: Lacosamide, Serum or Plasma Therapeutic Range: Not well established. Suggested range 5.0 - 10.0 ug/mL Dose-related range (values at doses of 200-600 mg/day): 2.5 - 18.0 ug/mL Toxic: Not well established. Adverse effects may include dizziness, fatigue, nausea, vomiting, blurred vision and tremor. This test was developed and its performance characteristics determined by [facility]. It has not been cleared or approved by the US Food and Drug Administration. This test was performed in a CLIA certified laboratory and is intended for clinical purposes. Performed By: [facility] [address] [place] [address] Payroll Manager: Philly Hope MD Blood BLOOD SPECIMEN / Unknown Venipuncture / Unknown 08/13/2020 5:00 PM CDT 08/13/2020 5:06 PM CDT Shane Fajardo MD LAB - CHEMISTRY OR DERABLES [facility]) [address] [place] [address] * LEVETIRACETAM LEVEL (08/13/2020 5:00 PM CDT) Levetiracetam 41 12 - 46 ug/mL 08/15/2020 10:58 PM CDT [facility] ([facility]) Comment: INTERPRETIVE INFORMATION: Keppra (Levetiracetam) Therapeutic Range: ??12-46 ug/mL ?Toxic: ??Not well Established Pharmacokinetics of levetiracetam are affected by renal function. Adverse effects may include somnolence, weakness, headache and vomiting. This levetiracetam (Keppra) immunoassay uses the Souche reagents, which has known cross-reactivity with the drug brivaracetam (Briviact) and may report inaccurate results. Patients transitioning from levetiracetam to brivaracetam or those who are using both medications should not monitor drug concentrations with the Souche assay. These patients should be monitored using a validated chromatographic methodology that distinguishes between drugs to determine drug concentrations. Performed By: [facility] [address] [place] [address] Payroll Manager: Philly Hope MD Blood BLOOD SPECIMEN / Unknown Venipuncture / Unknown 08/13/2020 5:00 PM CDT 08/13/2020 5:05 PM CDT Shane Fajardo MD LAB - THERAPEUTIC DRUG MONITORING ORDERABLES [facility] ([facility]) [address] [place] [address], [facility] * (ABNORMAL) COMPREHENSIVE METABOLIC PANEL (08/13/2020 5:00 PM CDT) BUN 13 7 - 26 mg/dL 08/13/2020 5:35 PM [facility] Creatinine 1.0 0.6 - 1.2 mg/dL 08/13/2020 5:35 PM [facility] Sodium 146(H) 136 - 145 mmol/L 08/13/2020 5:35 PM [facility] Potassium 4.5 3.5 - 4.5 mmol/L 08/13/2020 5:35 PM [facility] Chloride 112(H) 98 - 107 mmol/L 08/13/2020 5:35 PM [facility] CO2 22 22 - 29 mmol/L 08/13/2020 5:35 PM [facility] Glucose 104 70 - 115 mg/dL 08/13/2020 5:35 PM [facility] Calcium 9.4 8.4 - 10.2 mg/dL 08/13/2020 5:35 PM [facility] Protein Total 7.3 6.0 - 8.3 g/dL 08/13/2020 5:35 PM [facility] Albumin 4.1 3.4 - 5.0 g/dL 08/13/2020 5:35 PM [facility] Bilirubin Total 0.6 0.2 - 1.2 mg/dL 08/13/2020 5:35 PM [facility] Alkaline Phosphatase 64 40 - 150 Units/L 08/13/2020 5:35 PM T [facility] ALT 11 0 - 55 Units/L 08/13/2020 5:35 PM T [facility] AST 21 5 - 34 Units/L 08/13/2020 5:35 PM T [facility] Anion Gap 17 8 - 18 08/13/2020 5:35 PM CDT [facility] BUN/Creatinine Ratio 13 7 - 23 08/13/2020 5:35 PM T [facility] Osmolality Calculated 302(H) 270 - 300 mOsm/kg 08/13/2020 5:35 PM T [facility] Albumin/Globulin Ratio 1.3 1.1 - 2.3 08/13/2020 5:35 PM T [facility] eGFR >60 >60 mL/min/1.7 3 m2 08/13/2020 5:35 PM T [facility] Blood BLOOD SPECIMEN / Unknown Venipuncture / Unknown 08/13/2020 5:00 PM CDT 08/13/2020 5:06 PM CDT Shane Fajardo MD LAB - CHEMISTRY OR DERABLES [facility] [address] [place] [address], [facility] [phone] * CT HEAD WO CONTRAST (08/13/2020 4:12 PM CDT) Anatomical Region Laterality Modality Head Computed Tomogra phy 08/13/2020 7:34 PM CDT Impressions 08/14/2020 9:10 AM CDT IMPRESSION: 1.No acute intracranial hemorrhage, [...] be excluded. Clinical correlation/ENT consult is recommended. COMMUNICATION: ??Communicated with: Dr. Cardoza by Dr. Yañez on 08/14/2020 at 8:49 AM. This report was electronically signed by WOJCIECH ZAMBRANO ??on 08/14/2020 9:10 AM . Narrative 08/14/2020 9:[address] HEAD WO CONTRAST EXAMINATION: Computed tomography (CT) of the head without contrast DATE: 08/13/2020 4:12 PM HISTORY: R56.9: Seizures TECHNIQUE: CT of the head was performed without contrast according to standard protocol. COMPARISON: MRI of the brain from 06/13/2019. CT of the head from 01/14/2019. FINDINGS: No acute intra- or extra-axial fluid collections are identified. There is moderate cerebral and cerebellar volume loss with associated ex vacuo ventricular dilatation. The basilar cisterns are patent. No mass effect or midline shift is seen. 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 The garber-white matter differentiation is otherwise maintained. Periventricular white matter hypoattenuation is indicative of chronic small vessel ischemic disease. There is vascular calcification of the carotid siphons. Other than an old left lamina papyracea defect/fracture, the orbits appear normal. There has been interval increased size of the polypoid mucosal thickening within the right maxillary sinus. There is an associated trace layering secretions. Cerumen is noted in the right external auditory canal. The mastoid air cells are clear. There is a unchanged hypodense lesion in the left occipital scalp, likely a sebaceous cyst. Procedure Note Wojciech Zambrano MD - 08/14/2020 CT HEAD WO CONTRAST EXAMINATION: Computed tomography (CT) of the head without contrast DATE: 08/13/2020 4:12 PM HISTORY: R56.9: Seizures TECHNIQUE: CT of the head was performed without contrast according to standard protocol. COMPARISON: MRI of the brain from 06/13/2019. CT of the head from01/14/2019. FINDINGS: No acute intra- or extra-axial fluid collections are identified. Thereis moderate cerebral and cerebellar volume loss with associated ex vacuo ventricular dilatation. The basilar cisterns are patent. No mass effector midline shift is seen. Old infarcts are again noted in the rightoccipital lobe, the bilateral thalami, left greater than right, and the left basal ganglia. The garber-white matter differentiation is otherwise maintained. Periventricular white matter hypoattenuation is indicative of chronic small vessel ischemic disease. There is vascular calcification of the carotid siphons. Other than an old left lamina papyracea defect/fracture, the orbitsappear normal. There has been interval increased size of the polypoid mucosal thickening within the right maxillary sinus. There is an associatedtrace layering secretions. Cerumen is noted in the right external auditory canal. The mastoid air cells are clear. There is a unchanged hypodense lesion in the left occipital scalp, likely a sebaceous cyst. IMPRESSION: 1.No acute intracranial hemorrhage, midline shift, or significant mass effect 2.Generalized volume loss, chronic infarcts and nonspecific white matter changes, likely vascular related. 3.There is a polypoid mucosal thickening within the right maxillarysinus, increased in size compared to the prior CT from 01/14/2019. Findingscould be inflammatory, represent nasal polyposis however underlying lesion cannot be excluded. Clinical correlation/ENT consult is recommended. COMMUNICATION: Communicated with: Dr. Cardoza by Dr. Yañez on08/14/2020 at 8:49 AM. This report was electronically signed by WOJCIECH ZAMBRANO on08/14/2020 9:10 AM . Shane Fajardo MD CT ORDERABLES * (ABNORMAL) CBC W AUTO DIFFERENTIAL (08/13/2020 3:58 PM CDT) WBC 7.3 3.5 - 10.5 10? 3 /uL 08/13/2020 4:33 PM CDT [facility] RBC 4.67 4.30 - 5.70 10? 6 /uL 08/13/2020 4:33 PM [facility] Hemoglobin 15.1 13.5 - 17.5 g/dL 08/13/2020 4:33 PM T [facility] Hematocrit 44.7 39.0 - 50.0 % 08/13/2020 4:33 PM [facility] MCV 95.7 81.0 - 97.0 fL 08/13/2020 4:33 PM CDT [facility] MCH 32.3 28.0 - 34.0 pg 08/13/2020 4:33 PM CDT [facility] MCHC 33.8 32.0 - 36.0 g/dL 08/13/2020 4:33 PM [facility] Platelet Count 97(L) 150 - 400 10? 3 /uL 08/13/2020 4:33 PM [facility] Comment: RDW-SD 40.5 36.0 - 50.0 fL 08/13/2020 4:33 PM [facility] RDW-CV 11.7 11.2 - 14.8 % 08/13/2020 4:33 PM [facility] MPV 11.6 9.3 - 12.8 fL 08/13/2020 4:33 PM [facility] nRBC Absolute 0.00 0 10? 3 /uL 08/13/2020 4:33 PM [facility] nRBC Auto 0.0 0 /100 WBC 08/13/2020 4:33 PM [facility] Neutrophils % 48.1 35.0 - 70.0 % 08/13/2020 4:33 PM [facility] Lymphocytes % 41.0 19.7 - 55.1 % 08/13/2020 4:33 PM [facility] Monocytes % 7.4 3.0 - 15.0 % 08/13/2020 4:33 PM [facility] Eosinophils % 2.9 0.0 - 6.0 % 08/13/2020 4:33 PM [facility] Basophil % 0.3 0.0 - 1.5 % 08/13/2020 4:33 PM [facility] Neutrophils Absolute 3.5 1.6 - 7.0 10? 3 /uL 08/13/2020 4:33 PM [facility] Lymphocyte Absolute 3.0(H) 0.8 - 2.9 10? 3 /uL 08/13/2020 4:33 PM [facility] Monocytes Absolute 0.54 0.14 - 0.66 10? 3 /uL 08/13/2020 4:33 PM [facility] Eosinophils Absolute 0.21 0.00 - 0.45 10? 3 /uL 08/13/2020 4:33 PM [facility] Basophils Absolute 0.02 0.00 - 0.06 10? 3 /uL 08/13/2020 4:33 PM CDT [facility] Immature Granulocytes % 0.3 0.0 - 1.0 % 08/13/2020 4:33 PM CDT [facility] Blood BLOOD SPECIMEN / Unknown Venipuncture / Unknown 08/13/2020 3:58 PM CDT 08/13/2020 4:05 PM CDT Shane Fajardo MD LAB - HEMATOLOGY O RDERABLES Performing Organization Address City/[facility]/ZIP Co de Phone Number [address] [address], [place] [phone] * (ABNORMAL) VALPROIC ACID LEVEL (08/13/2020 3:58 PM CDT) Pathologist [facility] Valproic Acid Total 35(L) 50 - 100 mcg/mL 08/13/2020 4:39 PM CDT [facility] Blood BLOOD SPECIMEN / Unknown Venipuncture / Unknown 08/13/2020 3:58 PM CDT 08/13/2020 4:05 PM CDT Shane Fajardo MD LAB - CHEMISTRY OR DERABLES Performing Organization Address [facility] Co de Phone Number [address] [address], [place] [phone] * XR CHEST 1VW PORTABLE (08/13/2020 3:57 PM CDT) Anatomical Region Laterality Modality Chest Radiographic Cynthia ging 08/13/2020 3:56 PM CDT Impressions 08/13/2020 4:14 PM CDT FINDINGS/IMPRESSION: There is no focal consolidation, pleural effusion, or pneumothorax. The cardiomediastinal silhouette is normal. The visible bony thorax is intact. Dictated by Brandee Celestin MD (residential life director). I, Dr. HAZEL HYATT M.D. have personally reviewed and interpreted this examination/study. This report was electronically signed by HAZEL HYATT M.D. ??on 08/13/2020 4:14 PM . Narrative 08/13/2020 4:14 PM CDT EXAMINATION: XR CHEST 1VW PORTABLE HISTORY: R56.9: Seizures COMPARISON: No prior study is available for comparison. Procedure Note Hazel Hyatt MD - 08/13/2020 EXAMINATION: XR CHEST 1VW PORTABLE HISTORY: R56.9: Seizures COMPARISON: No prior study is available for comparison. FINDINGS/IMPRESSION: There is no focal consolidation, pleural effusion, or pneumothorax. The cardiomediastinal silhouette is normal. The visible bony thorax isintact. Dictated by Brandee Celestin MD (residential life director). I, Dr. HAZEL HYATT M.D. have personally reviewed and interpreted this examination/study. This report was electronically signed by HAZEL HYATT M.D. on 08/13/2020 4:14 PM . Shane Fajardo MD DIAGNOSTIC IMAGING ORDERABLES documented in this encounter Visit Diagnoses Diagnosis Seizure (HCC)- Primary Other convulsions Seizures (HCC) Other convulsions Urinary tract infection without hematuria, site unspecified Seizures (HCC) Other convulsions Urinary tract infection Urinary tract infection, site not specified documented in this encounter Administered Medications Inactive Administered Medications - up to 3 most recent administrations Medication Order MAR Action Action Date Dose Rate Site 0.9% NaCl infusion at 75 mL/hr, Intravenous, CONTINUOUS, Starting on Marian 08/14/20 at 0900, Until Tue08/15/20 at 0859 $ New Bag/Syringe 08/14/2020 11:42 PM CDT 75 mL/hr Current Rate 08/14/2020 4:03 PM CDT 75 mL/hr Restarted 08/14/2020 3:21 PM CDT 75 mL/hr 0.9% NaCl infusion at 75 mL/hr, Intravenous, CONTINUOUS, Starting on Tue08/15/20 at 0815, Until 08/16/20 at 0814 $ New Bag/Syringe 08/16/2020 5:31 AM CDT 75 mL/hr $ New Bag/Syringe 08/15/2020 2:05 PM CDT 75 mL/ hr $ New Bag/Syringe 08/15/2020 9:24 AM CDT 75 mL/ hr 0.9% NaCl injection 1-10 mL 1-10 mL, Intracatheter, PRN, Other, peripheral line flush, Starting on Tue08/13/20 at 1704, Until Tue08/21/20 at 2129, Flush peripheral IV catheter with 1-10 mL of normal saline before and after medications and prn to clear blood from the line or to verify patency. 0.9% NaCl injection 3 mL 3 mL, Intracatheter, EVERY 8 HOURS, First dose on Tue08/13/20 at 1745, Until Discontinued, Flush peripheral IV catheter with 3 mL of normal saline every 8 hours. $ Given 08/20/2020 9:31 PM CDT 3 mL $ Given 08/20/2020 4:06 PM CDT 3 mL $ Given 08/20/2020 5:44 AM CDT 3 mL 0.9% NaCl IV Bolus 500 mL, at 491.8 mL/hr, Administer over 61 Minutes, ONCE, 1 dose, On Tue08/20/20 at 0845 $ New Bag/Syringe 08/20/2020 10:07 AM CDT 500 mL 491.8 mL/hr acetaminophen (TYLENOL) tablet 500 mg 500 mg, Oral, EVERY 4 HOURS PRN, Mild Pain, Headache, Starting on Tue08/13/20 at 2217, Until Marian 08/21/20 at 2129, Not to exceed 4000 mg of acetaminophen per day from all sources combined $ Given 08/18/2020 9:48 AM CDT 500 mg $ Given 08/18/2020 3:01 AM CDT 500 mg $ Given 08/16/2020 9:57 AM CDT 500 mg amLODIPine (NORVASC) tablet 5 mg 5 mg, Oral, DAILY, First dose on Tue08/13/20 at 1800, Until Discontinued $ Given 08/21/2020 9:36 AM CDT 5 mg $ Given 08/20/2020 10:06 AM CDT 5 mg $ Given 08/19/2020 9:17 AM CDT 5 mg aspirin chew tablet 81 mg 81 mg, Oral, DAILY, First dose on Tue08/13/20 at 1800, Until Discontinued $ Given 08/21/2020 9:36 AM CDT 81 mg $ Given 08/20/2020 10:06 AM CDT 81 mg $ Given 08/19/2020 9:17 AM CDT 81 mg atorvastatin (LIPITOR) tablet 40 mg 40 mg, Oral, AT BEDTIME, First dose on Tue08/13/20 at 2100, Until Discontinued $ Given 08/20/2020 9:32 PM CDT 40 mg $ Given 08/19/2020 8:16 PM CDT 40 mg $ Given 08/18/2020 9:18 PM CDT 40 mg cefTRIAXone (Rocephin) syringe 2,000 mg 2,000 mg (2 g), Intravenous, EVERY 24 HOURS, 3 doses, First dose on Tue08/20/20 at 0945, Last dose on Tue08/22/20 at 0945, Infuse over 3-5 minutes. Mix with 19.2 mL diluent for final concentration 2000 mg/20 mL., Indication for anti-infective therapy: Documented infection, Site of anti-infective therapy: Urine/Genitourinary $ Given 08/21/2020 9:35 AM CDT 2,000 mg $ Given 08/20/2020 10:06 AM CDT 2,000 mg clonazePAM (KlonoPIN) tablet 1 mg 1 mg, Oral, 3 TIMES DAILY, First dose on Tue08/14/20 at 0900, Until Discontinued $ Given 08/17/2020 8:39 AM CDT 1 mg $ Given 08/16/2020 9:19 PM CDT 1 mg $ Given 08/16/2020 1:15 PM CDT 1 mg clonazePAM (KlonoPIN) tablet 2 mg 2 mg, Oral, ONCE, 1 dose, On Tue08/17/20 at 0030 $ Given 08/17/2020 1:01 AM CDT 2 mg clonazePAM (KlonoPIN) tablet 2 mg 2 mg, Oral, 2 TIMES DAILY, First dose (after last modification) on Tue08/17/20 at 2100, Until Discontinued $ Given 08/21/2020 9:38 AM CDT 2 mg $ Given 08/20/2020 9:32 PM CDT 2 mg $ Given 08/20/2020 10:06 AM CDT [address] (DEPAKOTE) tablet 1,000 mg 1,000 mg, Oral, ONCE, 1 dose, On Tue08/13/20 at 1745, Do not crush, chew, or cut in half. $ Given 08/13/2020 5:31 PM CDT 1,[address] (DEPAKOTE) tablet 1,000 mg 1,000 mg, Oral, 2 TIMES DAILY, First dose (after last modification) on Tue08/16/20 at 2100, Until Discontinued, Do not crush, chew, or cut in half. $ Given 08/21/2020 9:37 AM CDT 1,000 mg $ Given 08/20/2020 9:31 PM CDT 1,000 mg $ Given 08/20/2020 10:06 AM CDT 1,[address] (DEPAKOTE) tablet 750 mg 750 mg, Oral, 2 TIMES DAILY, First dose on Tue08/13/20 at 2100, Until Discontinued, Do not crush, chew, or cut in half. $ Given 08/16/2020 9:59 AM CDT 750 mg $ Given 08/15/2020 9:04 PM CDT 750 mg $ Given 08/15/2020 9:23 AM CDT 750 mg enoxaparin (LOVENOX) injection 40 mg 40 mg, Subcutaneous, DAILY, First dose on Tue08/19/20 at 0900, Until Discontinued, (for prefilled syringes) do not expel air bubble from the syringe prior to the injection Remind Patient to not rub injection site. Could cause hematoma. $ Given 08/21/2020 9:35 AM CDT 40 mg Abd Right Lower Quad rant $ Given 08/20/2020 10:10 AM CDT 40 mg A bd Right Lower Quadrant $ Given 08/19/2020 9:17 AM CDT 40 mg Ab dominal Tissue folic acid (FOLVITE) tablet 1 mg 1 mg, Oral, DAILY, First dose on Tue08/15/20 at 0945, Until Discontinued $ Given 08/21/2020 9:35 AM CDT 1 mg $ Given 08/20/2020 10:06 AM CDT 1 mg $ Given 08/19/2020 9:16 AM CDT 1 mg heparin injection 5,000 Units 5,000 Units, Subcutaneous, EVERY 8 HOURS, First dose on Tue08/13/20 at 1745, Until Discontinued $ Given 08/14/2020 5:27 PM CDT 5,000 Units Abdominal Tissue $ Given 08/14/2020 9:26 AM CDT 5,000 Units A bdominal Tissue $ Given 08/14/2020 12:21 AM CDT 5,000 Units Abd Left Lower Quadrant heparin injection 5,000 Units 5,000 Units, Subcutaneous, EVERY 8 HOURS, 11 doses, First dose on Tue08/15/20 at 1800, Last dose on Tue08/19/20 at 0200 $ Given 08/19/2020 2:31 AM CDT 5,000 Units Right Arm $ Given 08/18/2020 5:37 PM CDT 5,000 Units A bdominal Tissue $ Given 08/18/2020 9:48 AM CDT 5,000 Units A bdominal Tissue lacosamide (VIMPAT) tablet 200 mg 200 mg, Oral, 2 TIMES DAILY, First dose on Tue08/13/20 at 2100, Until Discontinued $ Given 08/21/2020 9:36 AM CDT 200 mg $ Given 08/20/2020 9:32 PM CDT 200 mg $ Given 08/20/2020 10:06 AM CDT 200 mg levETIRAcetam (KEPPRA) 3,000 mg in 0.9% NaCl IV 280 mL IVPB 3,000 mg, at 560 mL/hr, Intravenous, ONCE, 1 dose, On Tue08/13/20 at 1745 $ New Bag/Syringe 08/13/2020 6:49 PM CDT 3,000 mg 560 mL/hr levETIRAcetam (KEPPRA) tablet 1,500 mg 1,500 mg, Oral, 2 TIMES DAILY, First dose on Tue08/13/20 at 2100, Until Discontinued, Do not crush or chew because of TASTE only. $ Given 08/14/2020 9:26 AM CDT 1,500 mg $ Given 08/13/2020 8:47 PM CDT 1,500 mg levETIRAcetam (KEPPRA) tablet 2,000 mg 2,000 mg, Oral, 2 TIMES DAILY, First dose (after last modification) on Tue08/14/20 at 2100, Until Discontinued, Do not crush or chew because of TASTE only. $ Given 08/21/2020 9:37 AM CDT 2,000 mg $ Given 08/20/2020 9:31 PM CDT 2,000 mg $ Given 08/20/2020 10:06 AM CDT 2,000 mg LORazepam (ATIVAN) injection 1 mg 1 mg, Intravenous, NOW, 1 dose, On Tue08/13/20 at 1800 $ Given 08/13/2020 6:54 PM CDT 1 mg LORazepam (ATIVAN) injection 2 mg 2 mg, Intravenous, ONCE, 1 dose, On Tue08/14/20 at 0000 $ Given 08/13/2020 11:44 PM CDT 2 mg LORazepam (ATIVAN) injection 2 mg 2 mg, Intravenous, ONCE, 1 dose, On Tue08/14/20 at 1400 $ Given 08/14/2020 1:40 PM CDT 2 mg LORazepam (ATIVAN) injection 4 mg 4 mg, Intravenous, ONCE, 1 dose, On Tue08/14/20 at 0015 $ Given 08/14/2020 12:11 AM CDT 2 mg LORazepam (ATIVAN) injection 4 mg 4 mg, Intravenous, PRE-PROCEDURE ONCE, 1 dose, On Tue08/15/20 at 1400, For getting MRI during the imaging $ Given 08/15/2020 3:45 PM CDT 2 mg magnesium sulfate 2 g in 50 mL bolus 2 g, at 25 mL/hr, Administer over 120 Minutes, Intravenous, ONCE, 1 dose, On Tue08/17/20 at 0915, Infuse at 1 gm/hr $ New Bag/Syringe 08/17/2020 8:55 AM CDT 2 g 25 mL/hr magnesium sulfate 4 g in 100 mL bolus 4 g, at 25 mL/hr, Administer over 240 Minutes, Intravenous, ONCE, 1 dose, On Tue08/17/20 at 0915, Infuse at 1 gm/hr $ New Bag/Syringe 08/17/2020 9:51 AM CDT 4 g 25 mL/hr multivitamin daily tablet 1 tablet 1 tablet, Oral, DAILY, First dose on Tue08/15/20 at 0945, Until Discontinued, . WASTE DISPOSAL INSTRUCTIONS: Black Bin Disposal required. $ Given 08/21/2020 9:35 AM CDT 1 tablet $ Given 08/20/2020 10:06 AM CDT 1 tablet $ Given 08/19/2020 9:16 AM CDT 1 tablet thiamine (Vitamin B-1) tablet 100 mg 100 mg, Oral, DAILY, First dose on Tue08/15/20 at 0945, Until Discontinued $ Given 08/21/2020 9:36 AM CDT 100 mg $ Given 08/20/2020 10:06 AM CDT 100 mg $ Given 08/19/2020 9:16 AM CDT 100 mg valproate (DEPACON) 1,500 mg in 0.9% NaCl IV 65 mL IVPB 1,500 mg, at 130 mL/hr, Intravenous, ONCE, 1 dose, On Tue08/15/20 at 0915 $ New Bag/Syringe 08/15/2020 9:39 AM CDT 1,500 mg 130 mL/hr valproate (DEPACON) 1,500 mg in 0.9% NaCl IV 65 mL IVPB 1,500 mg, at 130 mL/hr, Intravenous, ONCE, 1 dose, On Tue08/16/20 at 1400 $ New Bag/Syringe 08/16/2020 3:17 PM CDT 1,500 mg 130 mL/hr documented in this encounter Active and Recently Administered Medications Times are shown in CDT. Scheduled Medication Order 08/19/2020 08/20/2020 08/21/2020 0.9% NaCl injection 3 mL(Linked Group 1) 3 mL, Intracatheter, EVERY 8 HOURS, First dose on Tue08/13/20 at 1745, Until Discontinued, Flush peripheral IV catheter with 3 mL of normal saline every 8 hours. 0503 (Not Administered - Provider: Sean Hughes RN - Reason: Patient sleeping)1343 ($ Given - Provider: Felicity Green)2015 ($ Given - Provider: Grace Norris RN) 0544 ($ Given - Provider: Grace Norris RN)1606 ($ Given - Provider: Angelina Yi, ALFRED)2131 ($ Given - Provider: Sean Hughes RN) 0523 (Not Administered - Provider: Sean Hughes RN - Reason: Patient sleeping)1536 (Not Administered - Provider: Angelina Yi RN - Reason: Loss of Access)2000 (Not Administered - Provider: Sean Hughes RN - Reason: Loss of Access) 0.9% NaCl IV Bolus (COMPLETED) 500 mL, at 491.8 mL/hr, Administer over 61 Minutes, ONCE, 1 dose, On Tue08/20/20 at 0845 1007 ($ New Bag/Syringe - Provider: Angelina Yi, ALFRED)1211 (Stopped - Provider: Angelina Yi RN) amLODIPine (NORVASC) tablet 5 mg 5 mg, Oral, DAILY, First dose on Tue08/13/20 at 1800, Until Discontinued 916 ($ Given - Provider: Felicity Green) 1006 ($ Given - Provider: Angelina Yi RN) 0936 ($ Given - Provider: Angelina Yi, ALFRED) aspirin chew tablet 81 mg 81 mg, Oral, DAILY, First dose on Tue08/13/20 at 1800, Until Discontinued 916 ($ Given - Provider: Felicity Green) 1006 ($ Given - Provider: Angelina Yi RN) 0936 ($ Given - Provider: Angelina Yi, ALFRED) atorvastatin (LIPITOR) tablet 40 mg 40 mg, Oral, AT BEDTIME, First dose on Tue08/13/20 at 2100, Until Discontinued 2015 ($ Given - Provider: Grace Norris RN) 2131 ($ Given - Provider: Sean Hughes, ALFRED) cefTRIAXone (Rocephin) syringe 2,000 mg 2,000 mg (2 g), Intravenous, EVERY 24 HOURS, 3 doses, First dose on Tue08/20/20 at 0945, Last dose on Tue08/22/20 at 0945, Infuse over 3-5 minutes. Mix with 19.2 mL diluent for final concentration 2000 mg/20 mL., Indication for anti-infective therapy: Documented infection, Site of anti-infective therapy: Urine/Genitourinary 1006 ($ Given - Provider: Angelina Yi RN) 0935 ($ Given - Provider: Angelina Yi, ALFRED) clonazePAM (KlonoPIN) tablet 2 mg 2 mg, Oral, 2 TIMES DAILY, First dose (after last modification) on Tue08/17/20 at 2100, Until Discontinued 916 ($ Given - Provider: Felicity Green)2015 ($ Given - Provider: Grace Norris RN) 1006 ($ Given - Provider: Angelina Yi, ALFRED)2131 ($ Given - Provider: Sean Hughes RN) 0938 ($ Given - Provider: Angelina Yi, ALFRED) divalproex DR (DEPAKOTE) tablet 1,000 mg 1,000 mg, Oral, 2 TIMES DAILY, First dose (after last modification) on Tue08/16/20 at 2100, Until Discontinued, Do not crush, chew, or cut in half. 09 ($ Given - Provider: Felicity Green)2015 ($ Given - Provider: Grace Norris RN) 1006 ($ Given - Provider: Angelina Yi, ALFRED)2130 ($ Given - Provider: Sean Hughes RN) 0937 ($ Given - Provider: Angelina Yi, RN) enoxaparin (LOVENOX) injection 40 mg 40 mg, Subcutaneous, DAILY, First dose on Tue08/19/20 at 0900, Until Discontinued, (for prefilled syringes) do not expel air bubble from the syringe prior to the injection Remind Patient to not rub injection site. Could cause hematoma. 916 ($ Given - Provider: Felicity Green) 1010 ($ Given - Provider: Angelina Yi, ALFRED) 0935 ($ Given - Provider: Angelina Yi, ALFRED) folic acid (FOLVITE) tablet 1 mg 1 mg, Oral, DAILY, First dose on Tue08/15/20 at 0945, Until Discontinued 915 ($ Given - Provider: Felicity Green) 1006 ($ Given - Provider: Angelina Yi, ALFRED) 0935 ($ Given - Provider: Angelina Yi, ALFRED) heparin injection 5,000 Units (COMPLETED) 5,000 Units, Subcutaneous, EVERY 8 HOURS, 11 doses, First dose on Tue08/15/20 at 1800, Last dose on Tue08/19/20 at 0200 0231 ($ Given - Provider: Sean Hughes, ALFRED) lacosamide (VIMPAT) tablet 200 mg 200 mg, Oral, 2 TIMES DAILY, First dose on Tue08/13/20 at 2100, Until Discontinued 0917 ($ Given - Provider: Felicity Green)2015 ($ Given - Provider: Grace Norris RN) 1006 ($ Given - Provider: Angelina Yi, ALFRED)2131 ($ Given - Provider: Sean Hughes, RN) 0936 ($ Given - Provider: Angelina Yi, ALFRED) levETIRAcetam (KEPPRA) tablet 2,000 mg 2,000 mg, Oral, 2 TIMES DAILY, First dose (after last modification) on Tue08/14/20 at 2100, Until Discontinued, Do not crush or chew because of TASTE only. 0917 ($ Given - Provider: Felicity Green)2015 ($ Given - Provider: Grace Norris RN) 1006 ($ Given - Provider: Angelina Yi, ALFRED)2130 ($ Given - Provider: Sean Hughes RN) 0937 ($ Given - Provider: Angelina Yi, ALFRED) multivitamin daily tablet 1 tablet 1 tablet, Oral, DAILY, First dose on Tue08/15/20 at 0945, Until Discontinued, . WASTE DISPOSAL INSTRUCTIONS: Black Bin Disposal required. 0916 ($ Given - Provider: Felicity Green) 1006 ($ Given - Provider: Angelina Yi RN) 0935 ($ Given - Provider: Angelina Yi, ALFRED) thiamine (Vitamin B-1) tablet 100 mg 100 mg, Oral, DAILY, First dose on Tue08/15/20 at 0945, Until Discontinued 915 ($ Given - Provider: Felicity Green) 1006 ($ Given - Provider: Angelina Yi RN) 0936 ($ Given - Provider: Angelina Yi RN) PRN Medication Order 08/19/2020 08/20/2020 08/21/2020 0.9% NaCl injection 1-10 mL(Linked Group 1) 1-10 mL, Intracatheter, PRN, Other, peripheral line flush, Starting on Tue08/13/20 at 1704, Until Marian 08/21/20 at 2129, Flush peripheral IV catheter with 1-10 mL of normal saline before and after medications and prn to clear blood from the line or to verify patency. acetaminophen (TYLENOL) tablet 500 mg 500 mg, Oral, EVERY 4 HOURS PRN, Mild Pain, Headache, Starting on Tue08/13/20 at 2217, Until Marian 08/21/20 at 212, Not to exceed 4000 mg of acetaminophen per day from all sources combined Linked Groups Order Group 1: SALINE LOCK, INSERT AND MAINTAIN (CANCELED) Routine, CONTINUOUS, Starting on Tue08/13/20 at 1715, Until Specified, New collection And 0.9% NaCl injection 3 mLJump to med 3 mL, Intracatheter, EVERY 8 HOURS, First dose on Tue08/13/20 at 1745, Until Discontinued, Flush peripheral IV catheter with 3 mL of normal saline every 8 hours. And 0.9% NaCl injection 1-10 mLJump to med 1-10 mL, Intracatheter, PRN, Other, peripheral line flush, Starting on 08/13/20 at 1704, Until Marian 08/21/20 at 2129, Flush peripheral IV catheter with 1-10 mL of normal saline before and after medications and prn to clear blood from the line or to verify patency. documented in this encounter Care Teams Job Counselor Relationship Specialty Start Date End Date Misael Maradiaga DO PCP - General 10/03/17 09/15/20 Elizabeth Sullivan, RN Mine Captain 10/14/17 documented as of this encounter
--- OUTSIDE RECORDS SUMMARY | 2024-06-08 05:43 | XMS_ITS | Encounter Summary ---
Author Organization [facility] Health Address [address] [facility] [place] [address] Care Team Providers Care Air Pollution Specialist Name Role Phone Misael Maradiaga DO Primary Care Provider Elizabeth Sullivan RN Unavailable [phone] Encounter Details Date Type Department Care Team (Latest Contact Info) Description 05/21/2019 1:50 PM LANDSCAPE HORTICULTURE INSTRUCTOR - 05/21/2019 11:[address] [facility] Hospital Encounter [facility] [address] [place] [id number] Jenna Ivy, CORE SHAPER-MEDICAL TECHNOLOGIST CLINICAL [address] [place] [phone] Discharge Disposition: Home or Self Care Social [...] divalproex DR (DEPAKOTE) 250 MG tablet Take 3 tablets by mouth 2 times daily for 30 days 180 tablet 5 05/16/2019 06/15/2019 folic acid (FOLVITE) 1 MG tabletIndications:Folat e [...] [facility] - Neurology [address] [place] [phone] Sean Raymundo, [address] [place] [address] [place] [address] documented as of this encounter Procedures Procedure Name Priority Date/Time Associated Diagnosis Comments LACOSAMIDE Routine 05/21/2019 1:56 PM LANDSCAPE HORTICULTURE INSTRUCTOR Lo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, intractable, without status epilepticus (HCC) Medication monitoring encounter LEVETIRACETAM LEVEL Routine 05/21/2019 1 :56 PM LANDSCAPE HORTICULTURE INSTRUCTOR Lo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, intractable, without status epilepticus (HCC) Medication monitoring encounter VALPROIC ACID FREE+TOTAL PANEL Routine 05/21/2019 1:56 PM LANDSCAPE HORTICULTURE INSTRUCTOR Lo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 Suggested range 5.0 - 10.0 ug/mL Dose-related range (values at doses of 200-600 mg/day): 2.5 - 18.0 ug/mL Toxic: Not well established. Adverse effects may include dizziness, fatigue, nausea, vomiting, blurred vision and tremor. Test developed and characteristics determined by [employer]. See Compliance Statement B: [facility]/ Performed by [facility], [address] [place] [address] [email or web address], Mio Anderson MD, Lab. Director Blood BLOOD SPECIMEN / Unknown Lab Venipuncture / Unknown 05/21/2019 1:56 PM LANDSCAPE HORTICULTURE INSTRUCTOR 05/21/2019 2:07 PM LANDSCAPE HORTICULTURE INSTRUCTOR Jenna Ivy CORE SHAPER-MEDICAL TECHNOLOGIST CLINICAL LAB - CHEMISTR Y ORDERABLES [facility] [employer] [facility]) [address] * VALPROIC ACID FREE+TOTAL PANEL (05/21/2019 1:56 PM LANDSCAPE HORTICULTURE INSTRUCTOR) Valproic Acid Free 11 7 - 23 ug/mL 05/23/2019 3:52 PM LANDSCAPE HORTICULTURE INSTRUCTOR [employer] ([facility]) Valproic Acid Total 83 50 - 125 ug/mL 05/23/2019 3:52 PM LANDSCAPE HORTICULTURE INSTRUCTOR [employer] ([facility]) Valproic Acid % Free 13 5 - 18 % 05/23/2019 3:52 PM LANDSCAPE HORTICULTURE INSTRUCTOR [employer] ([facility]) Comment: INTERPRETIVE INFORMATION: VPA-percent Free Valproic [...] may include headache, somnolence and dizziness. Performed by [facility], [address] [place] [address] [email or web address], Mio Anderson MD, Lab. Director Blood BLOOD SPECIMEN / Unknown Lab Venipuncture / Unknown 05/21/2019 1:56 PM LANDSCAPE HORTICULTURE INSTRUCTOR 05/21/2019 2:07 PM LANDSCAPE HORTICULTURE INSTRUCTOR Jenna [facility] - THERAPEU TIC DRUG MONITORING ORDERABLES Performing Organization Address City/[facility]/ZIP Co de Phone Number [employer] ([facility]) [address] [place] [address] * (ABNORMAL) LEVETIRACETAM LEVEL (05/21/2019 1:56 PM LANDSCAPE HORTICULTURE INSTRUCTOR) Levetiracetam 74.4(H) 10.0 - 40.0 ug/mL 05/25/2019 4:08 PM LANDSCAPE HORTICULTURE INSTRUCTOR [facility] ([facility]) Comment: This test was developed and its performance characteristics determined by [facility]. It has not been cleared or approved by the Food and Drug Administration. Blood BLOOD SPECIMEN / Unknown Lab Venipuncture / Unknown 05/21/2019 1:56 PM LANDSCAPE HORTICULTURE INSTRUCTOR 05/21/2019 2:07 PM LANDSCAPE HORTICULTURE INSTRUCTOR Narrative [facility] ([facility]) - 05/25/2019 4:08 PM LANDSCAPE HORTICULTURE INSTRUCTOR Performed at: ??01 - [facility] ??[id number] Web Design Specialist: Terence Ramos MD, Phone: ??[phone] Jenna [facility] - THERAPEU TIC DRUG MONITORING ORDERABLES [facility] ([facility]) [address] [place] [address] documented in this encounter Visit Diagnoses Diagnosis 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
--- OUTSIDE RECORDS SUMMARY | 2024-06-08 05:43 | XMS_ITS | Encounter Summary ---
Author Organization [facility] Health Address [address] [place] [address] Care Team Providers Care Plater Helper Name Role Phone Misael Maradiaga DO Primary Care Provider Elizabeth Sullivan RN Unavailable [phone] Reason for Referral * Radiology Services (Routine) - Closed Specialty Diagnoses / Procedures Referred By Contac t Referred To Contact MRI Diagnoses Intractable epilepsy with status epilepticus, unspecified epilepsy type (HCC) Procedures MRI BRAIN WWO CONTRAST Ck Feliciano MD [address] [facility] [address] [place] [address] [facility] Mri [address] [place] [address] Referral ID Status Reason Start Date Expiration Date Visits Re quested Visits Authorized [id number] Closed 06/07/2019 07/22/2019 1 1 GNER AND PATTERNMAKER Encounter Details Date Type Department Care Team (Late st Contact Info) Description 05/29/2019 1:00 PM DESIGNER AND PATTERNMAKER Office Visit [facility] Neurology [address] [place] [address] Ck Feliciano MD [address] [facility] [address] [place] [address] Intractable epilepsy with status epilepticus, unspecified epilepsy [...] Sign Reading Time Taken Comments Blood Pressure 126/78 05/29/2019 12:59 PM DESIGNER AND PATTERNMAKER Pulse 109 05/29/2019 12:59 PM DESIGNER AND PATTERNMAKER Temperature - - Respiratory Rate - - Oxygen Saturation - - Inhaled Oxygen Concentration - - Weight 57.6 kg (127 lb) 05/29/2019 12:59 PM DESIGNER AND PATTERNMAKER Height 180.3 cm (5' 11 ) 05/29/2019 12:59 PM DESIGNER AND PATTERNMAKER Body Mass Index 17.71 05/29/2019 12:59 PM DESIGNER AND PATTERNMAKER documented in this encounter Functional Status Functional [...] Progress Notes * Ck Feliciano MD - 05/29/2019 1:12 PM CST Epilepsy Clinic Note PCP Misael Maradiaga Date of Encounter: 05/29/2019 Chief Complaint: Seizures Gait difficulty MRI abnormality AGE OF ONSET 50-year-old SEMIOLOGY - Aura Tingling sensation over the right side - Ictus 1. Dyscongitive events 2. Convulsions, tongue bites - Post-ictus Confusion, aggression, disagreeable, ?paranoia, lasting several days SEIZURE CONTROL Seizure frequency 1. Initially 1 event every 2 weeks, now unclear 2. Initially 1 event every 1 month, now unclear Seizure free interval Uncontrolled Date of [...] Clinic for follow up. Age of onset [id number]. Clinical semiology described as (Aura) tingling sensation [...] which resulted in ER visit. Provided Vimpat 50 mg BID instead. - Seizures controlled until 04/2019, until had repetitive seizures and status epilepticus. Etiologysuspected due to erratic compliance. Had refractory status epilepticus, and AEDs was increased upondischarges. Currently doing better, started to ambulate more. Allergies: No Known Allergies Home Medications: Current [...] mouth 2 times daily for 30 days ??? folic acid (FOLVITE) 1 MG tablet Take 1 tablet by mouth once daily ??? ibuprofen (MOTRIN) 600 MG tablet ??? lacosamide (VIMPAT) 200 MG tablet Take 1 tablet by mouth 2 times daily for 30 days ??? levETIRAcetam (KEPPRA) 1000 MG tablet Take 2 tablets by mouth 2 times daily for 30 days ??? tamsulosin (FLOMAX) 0.4 MG capsule ??? [...] file Social History Narrative Physical Exam: Vitals: 05/29/19 1259 BP: 126/78 Pulse: 109 Weight: 127 lb (57.6 kg) Height: 5' 11 (1.803 m) General [...] Currently doing better, started to ambulate more. - I would recommend continuing discharged AEDs at this time. Last level is within range, aside fromLevetiracetam which is acceptable. Come to see POWER BALLAST MACHINE OPERATOR in May to ascertain that he continues to clinically improve, and repeat CBC/CMP/VPA/LEV/LCM levels on that day, and come to see me in June. - I also recommended a repeat MRI Brain w/wo contrast to ascertain resolution of cortical signal changes, given possibility of differential of other inflammatory etiologies. Post-visit Antiepileptics Levetiractam 1000 mg tab 2 - [address] 250 mg tab 3 - 3 Vimpat 200 mg tab 1 - 1 Clonazepam 0.5 mg PRN to prevent clustering . I personally spent 25 minutes with the patient of which greater than 15 minutes were spent counseling the patient on diagnosis, treatment option, safety, and therapeutic planning. Ck Feliciano MD GNER AND PATTERNMAKER documented in this encounter Plan of Treatment Upcoming Encounters Date Type Department Care Team (Late st Contact Info) Description 12/05/2024 1:00 PM CDT Office Visit [facility] - Neurology [address] [place] [address], [place] [address] Sean Raymundo, DO [address] [place] [address] [place] [address] [phone] (work) documented as of this encounter Results * LACOSAMIDE (06/18/2019 2:26 PM DESIGNER AND PATTERNMAKER) Lacosamide 6.4 5.0 - 10.0 ug/mL 06/20/2019 6:37 PM DESIGNER AND PATTERNMAKER [email or web address] ([facility]) Comment: INTERPRETIVE INFORMATION: Lacosamide, Serum or Plasma Therapeutic Range: Not well established. Suggested range 5.0 - 10.0 ug/mL Dose-related range (values at doses of 200-600 mg/day): 2.5 - 18.0 ug/mL Toxic: Not well established. Adverse effects may include dizziness, fatigue, nausea, vomiting, blurred vision and tremor. Test developed and characteristics determined by [facility]. See Compliance Statement B: [facility]/ Performed by [facility], [address] [place] [address] [email or web address], Mio Anderson MD, Lab. Director Blood BLOOD SPECIMEN / Unknown Lab Venipuncture / Unknown 06/18/2019 2:26 PM DESIGNER AND PATTERNMAKER 06/18/2019 3:00 PM DESIGNER AND PATTERNMAKER Ck Feliciano MD LAB - CHEMISTRY ORDERABLES [facility] ([facility]) [address] * (ABNORMAL) LEVETIRACETAM LEVEL (06/18/2019 2:26 PM DESIGNER AND PATTERNMAKER) Levetiracetam 55.5(H) 10.0 - 40.0 ug/mL 06/20/2019 1:06 AM DESIGNER AND PATTERNMAKER [facility] ([facility]) Comment: This test was developed and its performance characteristics determined by [employer]. It has not been cleared or approved by the Food and Drug Administration. Blood BLOOD SPECIMEN / Unknown Lab Venipuncture / Unknown 06/18/2019 2:26 PM DESIGNER AND PATTERNMAKER 06/18/2019 3:00 PM DESIGNER AND PATTERNMAKER Narrative [facility] ([facility]) - 06/20/2019 1:06 AM DESIGNER AND PATTERNMAKER Performed at: ??01 - [facility] [address] ??[id number] [employer]: Terence Ramos MD, Phone: ??[phone] Ck Feliciano MD LAB - THERAPEUT IC DRUG MONITORING ORDERABLES [facility] ([facility]) [address] [place] [address] * VALPROIC ACID LEVEL (06/18/2019 2:26 PM DESIGNER AND PATTERNMAKER) Pathologist [facility] Valproic Acid Total 72 50 - 100 mcg/mL 06/18/2019 3:32 PM [facility] Blood BLOOD SPECIMEN / Unknown Lab Venipuncture / Unknown 06/18/2019 2:26 PM DESIGNER AND PATTERNMAKER 06/18/2019 3:00 PM DESIGNER AND PATTERNMAKER Ck Feliciano MD LAB - CHEMISTRY ORDERABLES [address] [phone] * (ABNORMAL) COMPREHENSIVE METABOLIC PANEL (06/18/2019 2:26 PM DESIGNER AND PATTERNMAKER) Pathologist [facility] BUN 16 7 - 26 mg/dL 06/18/2019 3:26 PM [facility] Creatinine 0.9 0.6 - 1.2 mg/dL 06/18/2019 3:26 PM [facility] Sodium 141 136 - 145 mmol/L 06/18/2019 3:26 PM [facility] Potassium 4.7(H) 3.5 - 4.5 mmol/L 06/18/2019 3:26 PM [facility] Chloride 104 98 - 107 mmol/L 06/18/2019 3:26 PM [facility] CO2 30(H) 22 - 29 mmol/L 06/18/2019 3:26 PM [facility] Glucose 81 70 - 115 mg/dL 06/18/2019 3:26 PM [facility] Calcium 10.0 8.4 - 10.2 mg/dL 06/18/2019 3:26 PM [facility] Protein Total 7.8 6.0 - 8.3 g/dL 06/18/2019 3:26 PM [facility] Albumin 3.2(L) 3.4 - 5.0 g/dL 06/18/2019 3:26 PM [facility] Bilirubin Total 0.3 0.2 - 1.2 mg/dL 06/18/2019 3:26 PM [facility] Alkaline Phosphatase 76 40 - 150 Units/L 06/18/2019 3:26 PM [facility] ALT 7 0 - 55 Units/L 06/18/2019 3:26 PM [facility] AST 13 5 - 34 Units/L 06/18/2019 3:26 PM [facility] Anion Gap 12 8 - 18 06/18/2019 3:26 PM [facility] BUN/Creatinine Ratio 18 7 - 23 06/18/2019 3:26 PM [facility] Osmolality Calculated 292 270 - 300 mOsm/kg 06/18/2019 3:26 PM [facility] Albumin/Globulin Ratio 0.7(L) 1.1 - 2.3 06/18/2019 3:26 PM [facility] eGFR >60 >60 mL/min/1.7 3 m2 06/18/2019 3:26 PM [facility] Blood BLOOD SPECIMEN / Unknown Lab Venipuncture / Unknown 06/18/2019 2:26 PM DESIGNER AND PATTERNMAKER 06/18/2019 3:00 PM [facility] Ck Feliciano MD LAB - CHEMISTRY ORDERABLES Performing Organization Address City/State/[facility] Co de Phone Number [facility] [address] [place] [address] * (ABNORMAL) CBC WITH DIFFERENTIAL (06/18/2019 2:26 PM [facility]) WBC 7.1 3.5 - 10.5 10? 3 /uL 06/18/2019 3:06 PM [facility] RBC 4.34 4.30 - 5.70 10? 6 /uL 06/18/2019 3:06 PM [facility] Hemoglobin 13.3(L) 13.5 - 17.5 g/dL 06/18/2019 3:06 PM [facility] Hematocrit 42.0 39.0 - 50.0 % 06/18/2019 3:06 PM [facility] MCV 96.8 81.0 - 97.0 fL 06/18/2019 3:06 PM [facility] MCH 30.6 28.0 - 34.0 pg 06/18/2019 3:06 PM [facility] MCHC 31.7(L) 32.0 - 36.0 g/dL 06/18/2019 3:06 PM [facility] Platelet Count 303 150 - 400 10? 3 /uL 06/18/2019 3:06 PM [facility] RDW-SD 46.6 36.0 - 50.0 fL 06/18/2019 3:06 PM [facility] RDW-CV 13.2 11.2 - 14.8 % 06/18/2019 3:06 PM [facility] MPV 10.6 9.3 - 12.8 fL 06/18/2019 3:06 PM [facility] nRBC Absolute 0.00 0 10? 3 /uL 06/18/2019 3:06 PM [facility] nRBC Auto 0.0 0 /100 WBC 06/18/2019 3:06 PM [facility] Neutrophils % 45.5 35.0 - 70.0 % 06/18/2019 3:06 PM [facility] Lymphocytes % 41.5 19.7 - 55.1 % 06/18/2019 3:06 PM [facility] Monocytes % 8.0 3.0 - 15.0 % 06/18/2019 3:06 PM [facility] Eosinophils % 4.2 0.0 - 6.0 % 06/18/2019 3:06 PM [facility] Basophil % 0.4 0.0 - 1.5 % 06/18/2019 3:06 PM [facility] Neutrophils Absolute 3.2 1.6 - 7.0 10? 3 /uL 06/18/2019 3:06 PM [facility] Lymphocyte Absolute 3.0(H) 0.8 - 2.9 10? 3 /uL 06/18/2019 3:06 PM [facility] Monocytes Absolute 0.57 0.14 - 0.66 10? 3 /uL 06/18/2019 3:06 PM [facility] Eosinophils Absolute 0.30 0.00 - 0.45 10? 3 /uL 06/18/2019 3:06 PM [facility] Basophils Absolute 0.03 0.00 - 0.06 10? 3 /uL 06/18/2019 3:06 PM [facility] Immature Granulocytes % 0.4 0.0 - 1.0 % 06/18/2019 3:06 PM [facility] Blood BLOOD SPECIMEN / Unknown Lab Venipuncture / Unknown 06/18/2019 2:26 PM DESIGNER AND PATTERNMAKER 06/18/2019 3:00 PM DESIGNER AND PATTERNMAKER Ck Feliciano MD LAB - HEMATOLOG Y ORDERABLES [facility] [address] [place] [address] * MRI BRAIN WWO CONTRAST (06/16/2019 1:35 PM DESIGNER AND PATTERNMAKER) Anatomical Region Laterality Modality Head Magnetic Resonan ce 06/18/2019 12:3 3 PM DESIGNER AND PATTERNMAKER Impressions 06/18/2019 12:51 PM DESIGNER AND PATTERNMAKER IMPRESSION: 1.No evidence of acute intracranial findings. 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 3.Redemonstration of severe right hippocampus volume loss. 4.Additional chronic findings as above. 5.Unchanged enhancing lesion in the right maxillary sinus. 6.Paranasal sinus disease. This report was electronically signed by WOJCIECH NEIL ??on 06/18/2019 12:51 PM . Narrative 06/18/2019 12:51 PM DESIGNER AND PATTERNMAKER MRI BRAIN WWO CONTRAST DATE: 06/16/2019 1:35 [...] status epilepticus, unspecified epilepsy type (HCC)- Primary Intractable epilepsy with status epilepticus, unspecified epilepsy type (HCC) documented in this encounter Care Teams Plater Helper Relationship Specialty Start Date End Date Misael Maradiaga DO PCP - General 10/03/17 09/15/20 Elizabeth Sullivan, ALFRED Foam Fabricator 10/14/17 documented as of this encounter
--- OUTSIDE RECORDS SUMMARY | 2024-06-08 05:43 | XMS_ITS | Encounter Summary ---
Author Organization [facility] Health Address [address] [place] [address] Care Team Providers Care Traffic Observer Name Role Phone Misael Maradiaga DO Primary Care Provider Elizabeth Sullivan RN Unavailable [phone] Reason for Visit * Reason Comments Seizure pt states that he helton d a seizure at 1 am this morning. pt states that he was aware during the seizure and has them frequently and is compliant with his keppra Encounter Details Date Type Department Care Team (Late st Contact Info) Description 01/22/2019 3:25 AM CDT - 01/22/2019 7:14 AM CDT Emergency [facility] EMERGENCY DEPARTMENT [address] [place] [address] Kortney Vega MD [address] [place] [phone] Seizure (HCC) Discharge Disposition: Home or Self Care Social History Tobacco Use Types Packs/Day Years Used Date Smoking Tobacco: Every Day Cigarettes 1 15 Smokeless Tobacco: Never Alcohol [...] Sign Reading Time Taken Comments Blood Pressure 130/76 01/22/2019 2:07 AM CDT Pulse 100 01/22/2019 2:07 AM CDT Temperature 36.4 ??C (97.6 ??F) 01/22/2019 2:07 AM CD T Respiratory Rate 17 01/22/2019 2:07 AM CDT Oxygen Saturation 99% 01/22/2019 2:07 AM CDT Inhaled Oxygen Concentration - - Weight 65.8 kg (145 lb) 01/22/2019 2:07 AM CDT Height 180.3 cm (5' 11 ) 01/22/2019 2:07 AM CDT Body Mass Index 20.22 01/22/2019 2:07 AM CDT documented in this encounter Functional Status Functional Status Response Date of Assess ment Is person deaf or have serious hearing difficult y? No 01/15/2019 Is person blind or have serious difficulty seein g? No 01/15/2019 Does person have serious dif ficulty walking/climbing stairs? No 01/15/2019 Does person have difficulty dressing/bathing? No 01/15/2019 Does person have difficulty doing errands alone? No 01/15/2019 Cognitive Status Response Date of Assessm ent Does person have difficulty concentrating/remembering/making decisions? No 01/15/2019 documented as of this encounter Discharge Instructions * Attachments The following attachments cannot be sent through Care Everywhere. * RECURRENT SEIZURES IN ADULTS (GENERAL INFORMATION) (RUSSIAN) documented in this encounter Medications at Time [...] DR (DEPAKOTE) 500 MG tablet Take 1 tablet by mouth 2 times daily for 30 days 60 tablet 2 01/15/2019 02/15/2019 folic acid (FOLVITE) 1 MG tabletIndications:Folat e deficiency Take 1 tablet by mouth once daily 30 tablet 11 10/26/2018 03/12/2021 ibuprofen (MOTRIN) 600 MG tablet Take 600 mg by mouth as needed 09/01/2018 01/07/2022 levETIRAcetam (KEPPRA) 1000 MG tablet Take 2 tablets by mouth 2 times daily for 30 days 120 tablet 2 01/15/2019 02/15/2019 levETIRAcetam (KEPPRA) 750 MG tabletIndications:Parti al idiopathic [...] as of this encounter ED Notes * Malcolm Montes RN - 01/22/2019 7:12 AM CDT Pt given discharge instructions and follow up information. Pt verbalized understanding.GCS 15. Respirations even and unlabored. Pt stable and ambulatory at discharge. * Lotus Pagan RN - 01/22/2019 4:13 AM CDT Attempted lab draw x2 without success. ALFRED Noonan to attempt. * Stewart Ferguson APRN-CNP - 01/22/2019 3:25 AM CDT [facility] [place] [id number] [facility] EMERGENCY DEPARTMENT History Chief Complaint Patient presents with ??? Seizure pt states that he had a seizure at 1 am this morning. pt states that he was aware during the seizure and has them frequently and is compliant with his keppra Pt says he had a funny feeling and that he had a seizure [facility] and he then had one this morning. Pt says he takes his medication as prescribed. keppra 2000 mg and depakote. Pt has been more stressed out. 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 No falls no trauma. No aura. Pt says he feels sick. Pt had a stroke 9 months ago with weakness on his left side. Pt has a neurology dr dena zamora who he has an appt with on this coming Tuesdayfor his appt. Pt says he took his last dose at 8pm as usual. History provided by: Patient evening or night nurse supervisor used: No Seizure Seizure activity on arrival: no Seizure type: Unable to specify Preceding symptoms: no sensation of an aura present, no dizziness, no euphoria, no headache, no hyperventilation, no nausea, no numbness, no panic and no vision change Initial focality: Unable to specify Postictal symptoms: no confusion, no memory loss and no somnolence Return to baseline: yes (but he feels weak) Severity: Mild Timing: Once Number of seizures this episode: 1 Progression: Worsening (pt says he has been having more seizures lately) Context: stress Context: not alcohol withdrawal, not cerebral palsy, not change in medication, not sleeping less, not developmental delay, not drug use, not emotional upset, not family hx of seizures, not fever, notflashing visual stimuli, not hydrocephalus, not intracranial lesion, not intracranial shunt, medical compliance, not possible hypoglycemia, not possible medication ingestion, not and not previous head injury Recent head injury: No recent head injuries ELECTRIC DOLLY OPERATOR treatment: None History of seizures: yes Similar to previous episodes: yes Date of initial seizure episode: 1 year ago Date of most recent prior episode: 01/22/2019 Severity: Mild Seizure control level: Well controlled Current therapy: Levetiracetam (depakote) Compliance with current therapy: Good Past Medical History: Diagnosis Date ??? CVA [...] on file Tobacco Use ??? Smoking status: Current Every Day Smoker Packs/day: 1.00 Years: 15.00 Pack years: [...] file Gets together: Not on file Attends tenriism service: Not on file Active member of [...] ??? Not on file Review of Systems Review of Systems Constitutional: Negative for chills, [...] pain, blood in stool, constipation, diarrhea, heartburn, melena, nausea and vomiting. Genitourinary: Negative for dysuria, flank pain, frequency, hematuria and urgency. Musculoskeletal: Negative for back pain, falls, joint pain, myalgias and neck pain. Skin: Negative for itching and rash. Neurological: Positive for seizures. Negative for dizziness, tingling, tremors, sensory change, speech change, focal weakness, loss of consciousness, weakness and headaches. Endo/Heme/Allergies: Negative for environmental allergies and polydipsia. Does not bruise/bleed easily. Psychiatric/Behavioral: Negative for depression, hallucinations, memory loss, substance abuse and suicidal ideas. The patient is not nervous/anxious and does not have insomnia. Physical Exam BP 130/76 Pulse 100 Temp 97.6 ??F (36.4 ??C) (Oral) Resp 17 Ht 1.803 m (5' 11 ) Wt 65.8 kg (145 lb) SpO2 99% BMI 20.22 kg/m?? Physical Exam Constitutional: He is oriented to person, place, and time. He appears well- developed and well-nourished. HENT: Head: Normocephalic and atraumatic. Right Ear: External ear normal. Left Ear: External ear normal. Nose: Nose normal. Mouth/Throat: Oropharynx is clear and moist. Eyes: Pupils are equal, round, and reactive to light. Conjunctivae and EOM are normal. Neck: Normal range of motion. Neck supple. Cardiovascular: Normal rate, regular rhythm, normal heart sounds and intact distal pulses. Pulmonary/Chest: Effort normal and breath sounds normal. Musculoskeletal: Normal range of motion. He exhibits no edema or tenderness. Pt has strength 5+ upper and lower extremities Neurological: He is alert and oriented to person, place, and time. He has normal reflexes. Pt strength and sensory 5+ bilaterally upper and lower. Skin: Skin is warm and dry. Psychiatric: He has a normal mood and affect. His behavior is normal. Judgment and thought content normal. Nursing note and vitals reviewed. Medications Current Outpatient Medications Medication Sig Dispense Refill ??? acetaminophen (TYLENOL) 325 MG tablet ??? amLODIPine (NORVASC) 5 MG tablet Take 1 tablet by mouth once daily 30 tablet 0 ??? aspirin (ASPIRIN) 81 MG chew tablet Take 1 tablet by mouth once daily 30 tablet 0 ??? atorvastatin (LIPITOR) 20 MG tablet ??? clonazePAM (KLONOPIN) 0.5 MG tablet Take 1 tablet as needed after a seizure to prevent clustering, every 8 hours as needed. 30 tablet 5 ??? Cyanocobalamin (B-12) 1000 MCG Take 1 mg by mouth once daily 30 capsule 11 ??? divalproex DR (DEPAKOTE) 500 MG tablet Take 1 tablet by mouth 2 times daily for 30 days 60 tablet 2 ??? folic acid (FOLVITE) 1 MG tablet Take 1 tablet by mouth once daily 30 tablet 11 ??? ibuprofen (MOTRIN) 600 MG tablet ??? levETIRAcetam (KEPPRA) 1000 MG tablet Take 2 tablets by mouth 2 times daily for 30 days 120 tablet 2 ??? tamsulosin (FLOMAX) 0.4 MG capsule ??? thiamine (VITAMIN B-1) 100 MG tablet Take 1 tablet by mouth once daily 30 tablet 11 Procedures Procedures Lab/SPO2 Interpretation Hospital Encounter on 01/22/19 CBC W AUTO DIFFERENTIAL Result Value Ref Range WBC 5.6 3.5 - 10.5 10??3/uL RBC 4.43 4.30 - 5.70 10??6/uL Hemoglobin 14.9 13.5 - 17.5 g/dL Hematocrit 42.7 39.0 - 50.0 % MCV 96.4 81.0 - 97.0 fL MCH 33.6 28.0 - 34.0 pg MCHC 34.9 32.0 - 36.0 g/dL Platelet Count 237 150 - 400 10??3/uL RDW-SD 42.9 36.0 - 50.0 fL RDW-CV 12.0 11.2 - 14.8 % MPV 9.5 9.3 - 12.8 fL nRBC Absolute 0.00 0 10??3/uL nRBC Auto 0.0 0 /100 WBC Neutrophils % 48.8 35.0 - 70.0 % Lymphocytes % 42.8 19.7 - 55.1 % Monocytes % 5.0 3.0 - 15.0 % Eosinophils % 2.5 0.0 - 6.0 % Basophil % 0.5 0.0 - 1.5 % Neutrophils Absolute 2.7 1.6 - 7.0 10??3/uL Lymphocyte Absolute 2.4 0.8 - 2.9 10??3/uL Monocytes Absolute 0.28 0.14 - 0.66 10??3/uL Eosinophils Absolute 0.14 0.00 - 0.45 10??3/uL Basophils Absolute 0.03 0.00 - 0.06 10??3/uL Immature Granulocytes % 0.4 0.0 - 1.0 % COMPREHENSIVE METABOLIC PANEL Result Value Ref Range BUN 14 7 - 26 mg/dL Creatinine 0.8 0.6 - 1.2 mg/dL Sodium 140 136 - 145 mmol/L Potassium 4.2 3.5 - 4.5 mmol/L Chloride 107 98 - 107 mmol/L CO2 22 22 - 29 mmol/L Glucose 106 70 - 115 mg/dL Calcium 9.9 8.4 - 10.2 mg/dL Protein Total 7.4 6.0 - 8.3 g/dL Albumin 4.4 3.4 - 5.0 g/dL Bilirubin Total 0.5 0.2 - 1.2 mg/dL Alkaline Phosphatase 65 40 - 150 Units/L ALT 12 0 - 55 Units/L AST 14 5 - 34 Units/L Anion Gap 15 8 - 18 BUN/Creatinine Ratio 18 7 - 23 Osmolality Calculated 291 270 - 300 mOsm/kg Albumin/Globulin Ratio 1.5 1.1 - 2.3 eGFR >60 >60 mL/min/1.73 m2 VALPROIC ACID LEVEL Result Value Ref Range Valproic Acid Total 52 50 - 100 mcg/mL No orders to display Progress Notes 0541 pt Labs show no acute process. pt plan of care discussed with dr marin. Pt will follow up outptwith neuro Tuesday at 10a. Pt is awake and alert GCS 15. Breathing is regular and nonlabored. Skin is warm and dry.pt using wheelchair for ambulatory aid Proper discharge clothing. Discharge teaching successful as evidence by no further questions/concerns/needs. Pt ready for discharge. ED Course Clinical Impressions as of Jan 22 546 Seizure Medical Decision Making I have reviewed the: Nursing Notes, Vitals. I have interpreted the following results: Labs, 12 Lead EKG. Orders Placed This Encounter ??? CBC W AUTO DIFFERENTIAL ??? COMPREHENSIVE METABOLIC PANEL ??? LEVETIRACETAM LEVEL ??? VALPROIC ACID LEVEL ??? PROLACTIN ??? EKG 12-LEAD documented in this encounter Plan of Treatment Upcoming Encounters Date Type Department Care Team (Late st Contact Info) Description 12/05/2024 1:00 PM CDT Office Visit [facility] - Neurology [address] [facility] [place] [phone] Sean Raymundo, DO [address] [facility] [address] [place] [address] documented as of this encounter Procedures Procedure Name Priority Date/Time Associated Diagnosis Comments CARDIAC EKG ORDER 12/16/2019 1:3 8 PM CDT CARDIAC EKG ORDER 01/22/2019 7:2 1 PM CDT EKG 12-LEAD Routine 01/22/2019 4:42 AM CDT Seizure (HCC) LEVETIRACETAM LEVEL STAT 01/22/2019 4 :25 AM CDT PROLACTIN STAT 01/22/2019 4:25 AM CDT CBC W AUTO DIFFERENTIAL STAT 01/22/2019 4:25 AM CDT COMPREHENSIVE METABOLIC PANEL STAT 01/22/2019 4:25 AM CDT VALPROIC ACID LEVEL STAT 01/22/2019 4 :25 AM CDT documented in this encounter Results * CARDIAC EKG ORDER (12/16/2019 1:38 PM CDT) Narrative 12/16/2019 1:38 PM CDT Ordered by an unspecified provider. Scanned Document CARDIAC SERVICES ORD ERABLES * CARDIAC EKG ORDER (01/22/2019 7:21 PM CDT) Narrative 01/22/2019 7:21 PM CDT Ordered by an unspecified provider. Scanned Document CARDIAC SERVICES ORD ERABLES * EKG 12-LEAD (01/22/2019 4:42 AM CDT) Ventricular Rate 67 BPM [facility] MUSE Atrial Rate 67 BPM [facility] P-R Interval 130 ms [facility] QRS Duration ms 80 ms [facility] Q-T Interval ms 384 ms [facility]USE QTC Calculation (Bezet) 405 ms [facility] MUSE Calculated P [place] 82 degrees [facility] MUSE Calculated R [place] 47 degrees [facility] MUSE Calculated T [place] 75 degrees [facility] MUSE Interpretation EKG NORMAL SINUS RHYTHM SEPTAL INFARCT (CITED ON OR BEFORE 11-APR-2015) ABNORMAL ECG WHEN COMPARED WITH ECG OF 27-DEC-2018 22:46, QUESTIONABLE CHANGE IN INITIAL FORCES OF ANTERIOR LEADS QT HAS SHORTENED Confirmed by Tio Curry ([id number]), editorial cartoonist NATALIA HUFF ([id number]) on 02/22/2019 7:07:15 PM [facility] MUSE 01/22/2019 4:42 AM CDT 02/22/2019 7:07 PM CDT Stewart Ferguson [facility] ECG ORDERABLES Performing Organization Address [facility] de Phone Number [facility] MUSE * (ABNORMAL) PROLACTIN (01/22/2019 4:25 AM CDT) [facility] Prolactin 2.0(L) 2.1 - 17.7 ng/mL 01/24/2019 12:36 AM CDT [facility] [employer] ([facility]) Comment: REFERENCE INTERVAL: Prolactin Access complete set of age- and/or gender-specific reference intervals for this test in the [facility] Test Directory ([employer]). Performed by [employer], [address] [place] [address] [email or web address], Mio Anderson MD, Lab. Director Blood BLOOD SPECIMEN / Unknown Venipuncture / Unknown 01/22/2019 4:25 AM CDT 01/22/2019 4:31 AM CDT Stewart Ferguson [facility] LAB - CHEMISTR Y ORDERABLES Performing Organization Address [facility]/ZIP Co de Phone Number [facility] [employer]) [address] [place] [address] * VALPROIC ACID LEVEL (01/22/2019 4:25 AM CDT) [facility] Valproic Acid Total 52 50 - 100 mcg/mL 01/22/2019 5:02 AM CDT [facility] Blood BLOOD SPECIMEN / Unknown Venipuncture / Unknown 01/22/2019 4:25 AM CDT 01/22/2019 4:31 AM CDT Amir[facility]wight Phyllis [facility] LAB - CHEMISTR Y ORDERABLES Performing Organization Address [facility]/ZIP Co de Phone Number [facility] [address] [phone] * LEVETIRACETAM LEVEL (01/22/2019 4:25 AM CDT) Levetiracetam 26.2 10.0 - 40.0 ug/mL 01/24/2019 9:09 AM CDT [facility] ([facility]) Comment: This test was developed and its performance characteristics determined by [facility]. It has not been cleared or approved by the Food and Drug Administration. Blood BLOOD SPECIMEN / Unknown Venipuncture / Unknown 01/22/2019 4:25 AM CDT 01/22/2019 4:31 AM CDT Narrative [facility] ([facility]) - 01/24/2019 9:09 AM CDT Performed at: ??[address] - [address] ??[id number] Textile Supervisor: Terence Ramos MD, Phone: ??[phone] Stewart [facility] - THERAPEU TIC DRUG MONITORING ORDERABLES Performing Organization Address City/[facility]/ZIP Co de Phone Number [facility] ([facility]) [address] [id number] * COMPREHENSIVE METABOLIC PANEL (01/22/2019 4:25 AM CDT) BUN 14 7 - 26 mg/dL 01/22/2019 4:55 AM CDT [facility] Creatinine 0.8 0.6 - 1.2 mg/dL 01/22/2019 4:55 AM CDT [facility] Sodium 140 136 - 145 mmol/L 01/22/2019 4:55 AM CDT [facility] Potassium 4.2 3.5 - 4.5 mmol/L 01/22/2019 4:[address] [facility] Chloride 107 98 - 107 mmol/L 01/22/2019 4:[address] [facility] CO2 22 22 - 29 mmol/L 01/22/2019 4:[address] [facility] Glucose 106 70 - 115 mg/dL 01/22/2019 4:[address] [facility] Calcium 9.9 8.4 - 10.2 mg/dL 01/22/2019 4:[address] [facility] Protein Total 7.4 6.0 - 8.3 g/dL 01/22/2019 4:[address] [facility] Albumin 4.4 3.4 - 5.0 g/dL 01/22/2019 4:[address] [facility] Bilirubin Total 0.5 0.2 - 1.2 mg/dL 01/22/2019 4:[address] [facility] Alkaline Phosphatase 65 40 - 150 Units/L 01/22/2019 4:[address] [facility] ALT 12 0 - 55 Units/L 01/22/2019 4:[address] [facility] AST 14 5 - 34 Units/L 01/22/2019 4:[address] [facility] Anion Gap 15 8 - 18 01/22/2019 4:[address] [facility] BUN/Creatinine Ratio 18 7 - 23 01/22/2019 4:[address] [facility] Osmolality Calculated 291 270 - 300 mOsm/kg 01/22/2019 4:[address] [facility] Albumin/Globulin Ratio 1.5 1.1 - 2.3 01/22/2019 4:[address] [facility] eGFR >60 >60 mL/min/1.7 3 m2 01/22/2019 4:[address] [facility] Blood BLOOD SPECIMEN / Unknown Venipuncture / Unknown 01/22/2019 4:25 AM T 01/22/2019 4:31 AM [facility] Stewart Ferguson CSM CONSULTANT-NUCLEAR FUELS RESEARCH ENGINEER LAB - CHEMISTR Y ORDERABLES [facility] [address] [phone] * CBC W AUTO DIFFERENTIAL (01/22/2019 4:25 AM CDT) WBC 5.6 3.5 - 10.5 10? 3 /uL 01/22/2019 4:[address] [facility] RBC 4.43 4.30 - 5.70 10? 6 /uL 01/22/2019 4:[address] [facility] Hemoglobin 14.9 13.5 - 17.5 g/dL 01/22/2019 4:[address] [facility] Hematocrit 42.7 39.0 - 50.0 % 01/22/2019 4:[address] [facility] MCV 96.4 81.0 - 97.0 fL 01/22/2019 4:[address] [facility] MCH 33.6 28.0 - 34.0 pg 01/22/2019 4:[address] [facility] MCHC 34.9 32.0 - 36.0 g/dL 01/22/2019 4:[address] [facility] Platelet Count 237 150 - 400 10? 3 /uL 01/22/2019 4:[address] [facility] RDW-SD 42.9 36.0 - 50.0 fL 01/22/2019 4:[address] [facility] RDW-CV 12.0 11.2 - 14.8 % 01/22/2019 4:[address] [facility] MPV 9.5 9.3 - 12.8 fL 01/22/2019 4:[address] [facility] nRBC Absolute 0.00 0 10? 3 /uL 01/22/2019 4:[address] [facility] nRBC Auto 0.0 0 /100 WBC 01/22/2019 4:[address] [facility] Neutrophils % 48.8 35.0 - 70.0 % 01/22/2019 4:[address] [facility] Lymphocytes % 42.8 19.7 - 55.1 % 01/22/2019 4:[address] [facility] Monocytes % 5.0 3.0 - 15.0 % 01/22/2019 4:[address] [facility] Eosinophils % 2.5 0.0 - 6.0 % 01/22/2019 4:[address] [facility] Basophil % 0.5 0.0 - 1.5 % 01/22/2019 4:[address] [facility] Neutrophils Absolute 2.7 1.6 - 7.0 10? 3 /uL 01/22/2019 4:[address] [facility] Lymphocyte Absolute 2.4 0.8 - 2.9 10? 3 /uL 01/22/2019 4:[address] [facility] Monocytes Absolute 0.28 0.14 - 0.66 10? 3 /uL 01/22/2019 4:[address] [facility] Eosinophils Absolute 0.14 0.00 - 0.45 10? 3 /uL 01/22/2019 4:[address] [facility] Basophils Absolute 0.03 0.00 - 0.06 10? 3 /uL 01/22/2019 4:[address] [facility] Immature Granulocytes % 0.4 0.0 - 1.0 % 01/22/2019 4:[address] [facility] Blood BLOOD SPECIMEN / Unknown Venipuncture / Unknown 01/22/2019 4:25 AM CDT 01/22/2019 4:31 AM CDT Stewart Ferguson CSM CONSULTANT-NUCLEAR FUELS RESEARCH ENGINEER LAB - HEMATOLO GY ORDERABLES Performing Organization Address [facility]/State/[facility] Co de Phone Number [facility] [address] [phone] documented in this encounter Visit Diagnoses Diagnosis Seizure (HCC) Other convulsions documented in this encounter Care Teams Traffic Observer Relationship Specialty Start Date End Date Misael Maradiaga DO PCP - General 10/03/17 09/15/20 Elizabeth Sullivan, RN Hat Liner 10/14/17 documented as of this encounter
--- OUTSIDE RECORDS SUMMARY | 2024-06-08 05:43 | XMS_ITS | Encounter Summary ---
Author Organization [facility] Health Address [address] [facility] [place] [address] Care Team Providers Care Director Of Event Sales Name Role Phone Misael Maradiaga DO Primary Care Provider Elizabeth Sullivan RN Unavailable [phone] Reason for Visit * Reason Onset Date Comments Medication Clarification 12/01/2018 Encounter Details Date Type Department Care Team (Late st Contact Info) Description 12/01/2018 Telephone [facility] [address] [place] [address] Ck Feliciano MD [address] [place] [phone] Medication Clarification Social History Tobacco Use Types Packs/Day Years Used Date Smoking Tobacco: Every Day Cigarettes 0.3 15 Smokeless Tobacco: Never Alcohol Use Standard [...] or have serious hearing difficult y? No 10/15/2017 Is person blind or have serious difficulty seein g? No 10/15/2017 Does person have serious dif ficulty walking/climbing stairs? No 10/15/2017 Does person have difficulty dressing/bathing? No 10/15/2017 Does person have difficulty doing errands alone? No 10/15/2017 Cognitive Status Response Date of Assessm ent Does person have difficulty concentrating/remembering/making decisions? No 10/15/2017 documented as of this encounter Miscellaneous Notes * Telephone Encounter - Naa Mosley - 12/01/2018 11:48 AM CDT Pt's sister calling to get clarification about how pt should be taking seizure medications. Pt was [facility] to [facility] [place] because he was weak and lethargic and she is concerned that his condition has to do with how he has been taking his meds, possibly taking them incorrectly. Adriane, pt's sister's c/b # is [phone]. documented in this encounter Plan of Treatment Upcoming Encounters Date Type Department Care Team (Late st Contact Info) Description 12/05/2024 1:00 PM CDT Office Visit [facility] - Neurology [address] [place] [address], [place] [phone] Sean Raymundo DO [address] [place] [phone] documented as of this encounter Visit Diagnoses Not on filedocumented in this encounter Care Teams Director Of Event Sales Relationship Specialty Start Date End Date Misael Maradiaga DO PCP - General 10/03/17 09/15/20 Elizabeth Sullivan, RN Pulverizer Tender 10/14/17 documented as of this encounter
--- OUTSIDE RECORDS SUMMARY | 2024-06-08 05:43 | XMS_ITS | Encounter Summary ---
Author Organization [facility] Health Address [address] [place] [address] Care Team Providers Care Collar Setter Overlock Name Role Phone Misael Maradiaga DO Primary Care Provider Elizabeth Sullivan RN Unavailable [phone] Encounter Details Date Type Department Care Team (Late st Contact Info) Description 12/27/2018 Orders Only [facility] [address] [place] [address] Ck Feliciano MD [address] [place] [id number] Social History Tobacco Use Types Packs/Day Years [...] No 10/15/2017 documented as of this encounter Progress Notes * Ck Feliciano MD - 12/27/2018 3:28 PM CDT Patient in ED. Awake, alert, withdrawn. ?? Has observed the patient like this before in post-ictal state. May take over a day to recover. Recommend discuss with inpatient Neurology regarding Observation/Admission if required. ?? Apparently has hyponatremia ~ 130, went to OSH. Levetiracetam ?stopped given supratherapeutic. ?? Discussed with sister. He has been on Levetiracetam at higher dosage before in the past (750 mg tab, 3 - 3) - this current dosage is actually lower than what he used to take. Not LEV related. Most likely symptomatic hyponatremia, probably in parts due to Oxcarbazepine. Require change from Oxcarbazepine to Eslicarbazepine (Aptiom) due to hyponatremia. ?? Recommend: Levetiractam 1000 mg 2 - [address] 500 mg 1 - 1 Stop Oxcarbazepine Start Aptiom 800 mg Nightly NaCl Tablet 1 gm 1 - 1 ?? Come to see me on 01/15/2019, and will recheck labs/adjust further if needed. ?? Gave 14-day supply of Aptiom to Neurology. Ck Feliciano MD documented in this encounter Plan of Treatment Upcoming Encounters Date Type Department Care Team (Late st Contact Info) Description 12/05/2024 1:00 PM CDT Office Visit [facility] - Neurology [address] [place] [address], [place] [address] Sean Raymundo, DO [address] [place] [address] [place] [id number] documented as of this encounter Visit Diagnoses Not on filedocumented in this encounter Care Teams Collar Setter Overlock Relationship Specialty Start Date End Date Misael Maradiaga DO PCP - General 10/03/17 09/15/20 Elizabeth Sullivan, RN Tube Station Attendant 10/14/17 documented as of this encounter
--- OUTSIDE RECORDS SUMMARY | 2024-06-08 05:43 | XMS_ITS | Encounter Summary ---
Author Organization [facility] Health Address [address] [place] [address] Care Team Providers Care Director Advanced Name Role Phone Misael Maradiaga DO Primary Care Provider Elizabeth Sullivan RN Unavailable [phone] Reason for Visit * Reason Comments Seizure [facility] and had seizure. brought to ED for eval. sister states that his meds are too strong and he gets confused and is missing doses. pt lives alone and siblings prepare his med box * Auth/Cert Specialty Diagnoses / Procedures Referred By Anabella t Referred To Contact Referral ID Status Reason Start Date Expiration Date Visits Re quested Visits Authorized [id number] 1 1 Encounter Details Date Type Department Care Team (Late st Contact Info) Description 12/27/2018 11:44 AM CDT - 12/29/2018 7:55 PM CDT Emergency [address] [address] Zulma Quijano MD [address] [place] [id number] Caio Elder MD [address] [facility] [place] [id number] Verito Saba MD [address] [facility] [address] [place] [id number] Neurology Discharge Disposition: Home or Self Care Social [...] Sign Reading Time Taken Comments Blood Pressure 138/82 12/29/2018 5:01 PM CDT Pulse 79 12/29/2018 5:01 PM CDT Temperature 36.8 ??C (98.2 ??F) 12/29/2018 5:01 PM CD T Respiratory Rate 18 12/29/2018 5:01 PM CDT Oxygen Saturation 100% 12/29/2018 5:01 PM CDT Inhaled Oxygen Concentration - - Weight 65.8 kg (145 lb) 12/27/2018 11:38 AM CDT Height 180.3 cm (5' 11 ) 12/27/2018 11:38 AM CDT Body Mass Index 20.22 12/27/2018 11:38 AM CDT documented in this encounter Functional [...] No 10/15/2017 documented as of this encounter Discharge Summaries * Brian Lawrence MD - 12/29/2018 7:55 PM CDT Physician Discharge Summary Patient Name: Bi Tabor Date of : 1960 Admit date: 12/27/2018 Discharge date: 12/29/2018 Admitting Physician: Verito Saba MD Attending Physician: Verito Saba MD Discharge Physician: Verito Saba MD Admission Diagnosis: seizure Past Medical History Past Medical History: Diagnosis Date ??? CVA (cerebral vascular accident) ??? HTN (hypertension) ??? Seizure Discharge Diagnoses Seizure Headache, unspecified headache type Diagnostic Studies See hospital course Treatments See hospital course Procedures None Consults None Hospital Course Patient is a 58M with PMH of seizure, stroke and HTN who presented to the ED from the neurology clinic today after having a seizure. Family present with patient today and describes as tensing up andnot responding . Sister also reports that patient was seen in the ED at [facility] yesterday after having a seizure and was told that his medications were too strong for him. Patient was foundto have hyponatremia at OSH and apparently made changes to patient's medications. In the neurology clinic today patient was noted to be lethargic and agitated c/o severe headache that started last night. Has had multiple visits to [facility] ED for similar presentation. In the ED CT head was unable to be obtained due to patient agitation. Notable labs: Na 135, WBC 15.1, Valproic acid level 34, Keppra level pending at time of admission. Patient is well known to Dr. Feliciano who reports that patient has been known to have postictal state for many days. On day 2 of admission patient more alert and able to converse appropriately. There was still mild confusion but patient able to express orientation to person, place and time. Due tohyponatremia carbamazepine was discontinued and Aptiom was started at 800 mg nightly. Patient was given enough medication for ~ 2 weeks and prescription was sent to patient's pharmacy. It was discussed with the family and patient that they would need to try to fill the prescription angella because if it was denied by insurance then prior auth process could be started right away. PT/OT recommended acute rehab however patient declined. Patient was discharged with a reminder about neurology appointment on 01/15. Disposition: Home Condition at discharge: fair Code Status At Discharge Full Code Patient Instructions IMPORTANT MESSAGE FROM YOUR DOCTORS: Dear Bi Tabor, You were admitted to the hospital after having a seizure. You are now stable to be discharged. We have made some changes to your medications. Please review them below. Please note the following instructions: 1. Medications Please continue taking all of your home medications as instructed with the following modifications: START: Aptiom 800 mg. Take one tablet every night at bedtime STOP: Please stop taking oxcarbazepine. Please discard any of this medication that you may still have. Please discuss these changes with your Primary Care Physician. 2. Follow-up Please note your upcoming appointments at [facility]: 01/15/2019 10:00 AM Ck Feliciano MD [facility] 05/15/2019 11:00 AM Ck Feliciano MD [facility] 3. Lifestyle Modifications - It is very important for your health to AVOID smoking cigarettes. Please talk to your Primary Care Physician if you need help quitting smoking. - Please include plenty of fresh fruits and vegetables in your diet, and maintain a healthy diet, including a low-salt and low-calorie diet to help you lose weight and be healthy, and as specified byyour doctors. - Discuss an exercise program with your Primary Care Physician. It is recommended that most individuals should exercise for 20 minutes at least 5 times per week. Please call your physician or report to the nearest emergency room if you develop new or concerningsymptoms, including, but not limited to, chest pain, palpitations, numbness, tingling, shortness ofbreath, nausea, vomiting, or confusion. Thank you for allowing us to participate in your care. Sincerely, [facility] phone number: Scheduling line phone number: Current Discharge Medication List START taking these medications Instructions Authorizing Provider eslicarbazepine 800 MG tablet Commonly known as: APTIOM Quantity Dispensed: 30 tablet Take 1 tablet by mouth once daily Ck Feliciano sodium chloride 1 GM tablet Quantity Dispensed: 30 tablet Take 1 tablet by mouth once daily Brian Lawrence CONTINUE taking these medications which have NOT CHANGED Instructions Authorizing Provider acetaminophen 325 MG tablet Commonly known as: TYLENOL amLODIPine 5 MG tablet Commonly known as: NORVASC Quantity Dispensed: 30 tablet Take 1 tablet by mouth once daily Bitter, Kortney C aspirin 81 MG chew tablet Commonly known as: ASPIRIN Quantity Dispensed: 30 tablet Take 1 tablet by mouth once daily Bitter, Kortney C atorvastatin 20 MG tablet Commonly known as: LIPITOR B-12 1000 MCG Quantity Dispensed: 30 capsule Take 1 mg by mouth once daily Ck Felciiano clonazePAM 0.5 MG tablet Commonly known as: KlonoPIN Quantity Dispensed: 30 tablet Take 1 tablet as needed after a seizure to prevent clustering, every 8 hours as needed. Ck Feliciano divalproex DR 500 MG tablet Commonly known as: DEPAKOTE Quantity Dispensed: 60 tablet Take 1 tablet by mouth 2 times daily Ck Feliciano folic acid 1 MG tablet Commonly known as: FOLVITE Quantity Dispensed: 30 tablet Take 1 tablet by mouth once daily Ck Feliciano ibuprofen 600 MG tablet Commonly known as: MOTRIN levETIRAcetam 1000 MG tablet Commonly known as: KEPPRA Quantity Dispensed: 60 tablet Take 2 tablets by mouth 2 times daily Ck Feliciano tamsulosin 0.4 MG capsule Commonly known as: FLOMAX thiamine 100 MG tablet Commonly known as: VITAMIN B-1 Quantity Dispensed: 30 tablet Take 1 tablet by mouth once daily Ck Feliciano Discharge time: greater than 30 mins Associated attestation - Verito Saba MD - 01/01/2019 8:09 PM CDT Attending note: Patient was admitted for breakthrough seizure and his medications were adjusted and he remained seizure free. He was discharged home. Verito Saba M.D Attending documented in this encounter Discharge Instructions * Discharge Instructions* Brian Lawrence MD - 12/28/2018 11:21 AM CDT IMPORTANT MESSAGE FROM YOUR DOCTORS: Dear Bi Tabor, You were admitted to the hospital after having a seizure. You are now stable to be discharged. We have made some changes to your medications. Please review them below. Please note the following instructions: 1. Medications Please continue taking all of your home medications as instructed with the following modifications: START: Aptiom 800 mg. Take one tablet every night at bedtime STOP: Please stop taking oxcarbazepine. Please discard any of this medication that you may still have. Please discuss these changes with your Primary Care Physician. 2. Follow-up Please note your upcoming appointments at [facility]: 01/15/2019 10:00 AM Ck Feliciano MD [facility] 05/15/2019 11:00 AM Ck Feliciano MD [facility] 3. Lifestyle Modifications - It is very important for your health to AVOID smoking cigarettes. Please talk to your Primary Care Physician if you need help quitting smoking. - Please include plenty of fresh fruits and vegetables in your diet, and maintain a healthy diet, including a low-salt and low-calorie diet to help you lose weight and be healthy, and as [facility]. - Discuss an exercise program with your Primary Care Physician. It is recommended that most individuals should exercise for 20 minutes at least 5 times per week. Please call your physician or report to the nearest emergency room if you develop new or concerningsymptoms, including, but not limited to, chest pain, palpitations, numbness, tingling, shortness ofbreath, nausea, vomiting, or confusion. Thank you for allowing us to participate in your care. 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, intractable, without status epilepticus (HCC) Take 1 tablet by mouth 2 times daily 60 tablet 11 10/26/2018 01/15/2019 eslicarbazepine (APTIOM) 800 MG tablet Take 1 tablet by mouth once daily 30 tablet 11 12/27/2018 01/15/2019 folic acid (FOLVITE) 1 MG tabletIndications:Folat e deficiency Take 1 tablet by mouth once daily 30 tablet 11 10/26/2018 03/12/2021 ibuprofen (MOTRIN) 600 MG tablet Take 600 mg by mouth as needed 09/01/2018 01/07/2022 levETIRAcetam (KEPPRA) 1000 MG tablet Take 2 tablets by mouth 2 times daily 60 tablet 11 10/26/2018 01/15/2019 levETIRAcetam (KEPPRA) 750 MG tabletIndications:Becky al 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 SW informed patient that performance manager had made SNF referrals and patient has SNF acceptance, but patient will need to sign over his disability check. Patient not agreeable to this and states he wants to talk to my brother . SW notified RNcase volunteer manager. CLARITA Guzman 12/29/2018 [id number] * Verito Saba MD - 12/29/2018 12:56 PM CDT Attending note f/u: I have verified the documentation of the medical student including all history, exam, and medical decision-making details. I have personally performed a physical exan and have personally reviewed thedata to support my medical decision-making as outlined in the medical student's note and I arrive in dependentaly at the same conclusion with the exceptions as indicated below. Date of service: 12/29/18 CC: f/u for breakthrough sz Pt remained asymptomatic since admission and he is waiting for placement. No Known Allergies Current Facility-Administered Medications Medication ??? 0.9% NaCl injection 3 mL And ??? 0.9% NaCl injection 1-10 mL ??? amLODIPine (NORVASC) tablet 5 mg ??? aspirin (ASPIRIN) chew tablet 81 mg ??? atorvastatin (LIPITOR) tablet 40 mg ??? divalproex DR (DEPAKOTE) tablet 500 mg ??? eslicarbazepine (APTIOM) tablet 800 mg ??? folic acid (FOLVITE) tablet 1 mg ??? heparin injection 5,000 Units ??? levETIRAcetam (KEPPRA) tablet 2,000 mg ??? MINERIN cream ??? sodium chloride tablet 1 g ??? tamsulosin (FLOMAX) capsule 0.4 mg Neurological exam: Cortical Functions: Awake and alert, attentive and follows commands. Cranial nerves: CN II: Pupils are normal 3mm BRTL, reactive to light. Normal visual acuity. CN III- through : EOM: full, normal visual dahl, no VF cut No ptosis, no nystagmus CN V: Normal facial sensation and good masseter bilaterally. CN VII: right facial weakness CN VIII: Normal hearing CN IX, X: Normal (symmetric) palate elevation and sensation. Normal shoulder shrugging bilaterally. CNXII: Normal tongue protrusion, No tongue weakness or fasciculations or atrophy Motor: Abnormal movements: None. No Fasciculations, no TD and no tremors. Tone: Normal tone No spasticity or rigidity in the arms and legs. Bulk: Normal muscle bulk, no atrophy or hypertrophy. No contractures. Muscle strength is Neck Flexors 5 Neck extensors 5 Right Left UE: SA 5 5 EF 5 5 EE 5 5 WE 5 5 WF 5 5 APB 5 5 FDI 5 5 FF` 5 5 LE: HF 5 5 KE 5 5 KF 5 5 ADF 5 5 AI 5 5 APF 5 5 AE 5 5 DTR or Muscle Stretch Reflexes: Right Left BI 2 2 Tri 2 2 BR 2 2 Pat 2 2 Ach 2 2 No Babinski bilaterally Sensory exam: Uexts: normal position, proprioception, and vibration bilaterally. Normal touch bilaterally. LExts: normal position, proprioception, and vibration in the toes bilaterally Normal touch and pinprick bilaterally Cerebellar exam: Normal rapid alternative movements in the hands and legs . Normal finger nose finger in the hands bilaterally, Normal heel-knee- francisco bilaterally, No tremors noted Gait: deferred Data Ct Head Wo Contrast Result Date: 12/28/2018 IMPRESSION: No acute intracranial hemorrhage, mass effect, midline shift. 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 Dictated by Kamila Childs M.D. (residential manager). This report was approved by Kamila Childs on 12/28/2018 7:35 AM . IDr. WOJCIECH have personally reviewed and interpreted this examination/study. This reportwas electronically signed by WOJCIECH NEIL on 12/28/2018 7:35 AM . Impression: Breakthrough seizure related to non compliant/ confusion with AEDs. He remained asymptomatic on current Medications. Plan: Continue current AEDs at current dose Awaiting placement. Continue sz precautions. Verito Saba M.D Attending * Henri Jay RN - 12/29/2018 12:30 PM CDT Problem: High Fall Risk (Score greater than/equal to 15) Goal: Patient will remain safe from falls and injury. Outcome: Ongoing Patient educated on usage of call light when transferring from bed to bedside commode. Patient acknowledges teachings. Bed remains in low-setting, room clutter free, call light within reach and bed next to nurses station for frequent observation. Will continue to monitor. * Emerita Berg - 12/29/2018 12:14 PM CDT Neurology Progress Note ?? Patient: Bi Tabor Room: 521 Age: [age] year old ?? Interval Events: No acute events overnight. Pt is feeling great and not yelling at everyone no more . Is able to hold normal conversation and answers questions appropriately. Per Dr. Feliciano, pt tends to have postictal state that lasts for days. May still have some post-ictal features - per chart, is agreeableto go to SNF, but this morning stated he was going to his own home after discharge. He also mentioned that he had a previous surgery where his R arm was cut off to his elbow and R leg was cut off to I don't know where. Pt stated he did not know why he had these surgeries because I never complained about them or nothing and states his limbs are I don't know where but somebody's got em. ?? Objective: BP 141/94 Pulse 72 Temp 98.3 ??F (36.8 ??C) Resp 20 Ht 5' 11 Wt 145 lb SpO2 100% BMI 20.22 kg/m2 Neuro Exam: Mental status: awake, alert, oriented to person, place, reason for admission. VF intact to confrontation test. Neglect: no visual or tactile neglect. monorail crane operator: Pupils equal and reactive bilaterally, full EOM, no ptosis or nystagmus noted Facial sensation intact bl to light touch, no facial palsy Uvula deviated to left (palate not observed), normal tongue protrusion Motor: bulk and tone normal. Strength: RUE/LUE 5/5, RLE/LLE 5/5 DTR: R: biceps 3+, brachioradialis 3+, patellar 2+, no Achilles elicited, down L: biceps 3+, brachioradialis 3+, patellar 2+, no Achilles elicited, down Sensory: intact to light touch, pin prick, temperature, vibration Cerebellar: FNF & FREEDOM intact bilaterally Gait: deferred Labs: Recent Results (from the past 24 hour(s)) URINALYSIS W/MICROSCOPIC NO CULTURE ?? Collection Time: 12/27/18 5:21 PM Result Value Ref Range ?? Color UA Straw Straw, Yellow, Colorless ?? Clarity UA Clear Clear, Slt Cloudy ?? Specific [place] UA 1.006 1.005 - 1.030 ?? pH UA 6.0 5.0 - 8.0 pH ?? Protein UA Negative Negative mg/dL ?? Glucose UA Negative Negative mg/dL ?? Ketone UA Trace (Abnormal) Negative mg/dL ?? Bilirubin UA Negative Negative mg/dL ?? Blood UA Negative Negative ?? Nitrite UA Negative Negative ?? Leukocyte Esterase Negative Negative ?? Urobilinogen UA Negative Negative mg/dL ?? RBC UA 0-2 None Seen, 0-2, 3-5 /HPF ?? WBC UA 0-5 None Seen, 0-5 /HPF ?? Squamous Epithelial Cells UA None Seen None Seen, 0-2 /HPF DRUG SCREEN TOX URINE PANEL ?? Collection Time: 12/27/18 5:21 PM Result Value Ref Range ?? Amphetamines Screen Urine Negative Negative: < 1000 ng/mL ?? Barbiturates Screen Urine Negative Negative: < 200 ng/mL ?? Benzodiazepine Screen Urine Negative Negative: < 200 ng/mL ?? Opiates Urine Negative Negative: < 300 ng/mL ?? Cocaine Metabolites Urine Negative Negative: < 300 ng/mL ?? Phencyclidine Screen Urine Negative Negative: < 25 ng/ml ?? Cannabinoids Screen Urine Negative Negative: <50 ng/mL ?? Methadone Screen Urine Negative Negative: < 300 ng/mL EKG 12-LEAD ?? Collection Time: 12/27/18 10:46 PM Result Value Ref Range ?? Ventricular Rate 99 BPM ?? Atrial Rate 99 BPM ?? P-R Interval 130 ms ?? QRS Duration ms 86 ms ?? Q-T Interval ms 352 ms ?? QTC Calculation (Bezet) 451 ms ?? Calculated P [place] 82 degrees ?? Calculated R [place] 47 degrees ?? Calculated T [place] 84 degrees ?? Interpretation EKG ? NORMAL SINUS RHYTHM WITH SINUS ARRHYTHMIA 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) ABNORMAL ECG WHEN COMPARED WITH ECG OF 21-OCT-2018 13:05, NO SIGNIFICANT CHANGE WAS FOUND CBC W/O DIFFERENTIAL ?? Collection Time: 12/28/18 3:47 AM Result Value Ref Range ?? WBC 12.0 (H) 3.5 - 10.5 10??3/uL ?? RBC 4.37 4.30 - 5.70 10??6/uL ?? Hemoglobin 14.4 13.5 - 17.5 g/dL ?? Hematocrit 40.8 39.0 - 50.0 % ?? MCV 93.4 81.0 - 97.0 fL ?? MCH 33.0 28.0 - 34.0 pg ?? MCHC 35.3 32.0 - 36.0 g/dL ?? Platelet Count 180 150 - 400 10??3/uL ?? RDW-SD 41.1 36.0 - 50.0 fL ?? RDW-CV 11.9 11.2 - 14.8 % ?? MPV 10.5 9.3 - 12.8 fL ?? nRBC Absolute 0.00 0 10??3/uL ?? nRBC Auto 0.0 0 /100 WBC BASIC METABOLIC PANEL (CALCIUM TOTAL) ?? Collection Time: 12/28/18 3:47 AM Result Value Ref Range ?? BUN 9 7 - 26 mg/dL ?? Creatinine 0.8 0.6 - 1.2 mg/dL ?? Sodium 139 136 - 145 mmol/L ?? Potassium 3.8 3.5 - 4.5 mmol/L ?? Chloride 104 98 - 107 mmol/L ?? CO2 22 22 - 29 mmol/L ?? Glucose 87 70 - 115 mg/dL ?? Calcium 9.4 8.4 - 10.2 mg/dL ?? Anion Gap 17 8 - 18 ?? BUN/Creatinine Ratio 11 7 - 23 ?? Osmolality Calculated 286 270 - 300 mOsm/kg ?? eGFR >60 >60 mL/min/1.73 m2 Imaging: CT head wo contrast: No acute intracranial hemorrhage, mass effect, or midline shift. Old infarcts visible: R occipital lobe, bilateral thalami (L more than R), basal ganglia. Assessment & Plan: Mr. Tabor is a 58 yo AA male with PMHx of CVA, seizures, HTN, hyperlipidemia who presented to the ED from the neurology clinic after having a seizure. Likely a breakthrough seizure secondary to medication adjustment and possible noncompliance due to patient's baseline level of confusion and impaired daily functioning. Pt's family has tried to set up pill workforce planner for him with pills for only 2 daysat a time, but have noticed that pt will sometimes take only the morning pills and forget the nightpills on both days, or will skip a day entirely. This likely contributed to fluctuating blood levels of seizure medications and allowed for breakthrough seizure. Given the frequency of his seizures (~1x/month) requiring hospitalization, prolonged postictal state (per Dr. Feliciano, pt's postictal state can last for days at a time), and his brother's/sister's inability to be omni-present caregivers, pt will benefit from a higher level of care rather than continuing to live at home by himself. #Seizure - cont home Keppra 2,000 mg PO BID - cont home Depakote DR 500 mg PO BID - d/c home oxcarbazepine - cont Aptiom 800 mg PO BID - f/u with Dr. Feliciano 01/15/19 #Hyponatremia (resolved) - Na was 130 on 11/27, 135 this admission, latest 139 - possibly due to oxcarbazepine - Aptiom started and oxcarbazepine d/c'd - NaCl 1g PO QD #HTN - cont home amlodipine #Stroke Hx - ASA, atorvastatin Dispo: acute rehab or SNF pending placement Discussed with Dr. Wandy Berg, MS3 Associated attestation - Verito Saba MD - 12/31/2018 9:59 PM CDT Please refer to the attending note for details. Verito Saba M.D Attending * Cami Yarbrough OT - 12/29/2018 11:47 AM CDT [facility] Physical Medicine and Rehabilitation Occupational Therapy Progress Note Patient: Bi Tabor [facility] Record Number: [id number] Date of : 1960 Age: [age] year old Discharge Recommendation: Patient will benefit from multidisciplinary inpatient therapies. Frequency: Patient to be scheduled 5x/week while in hospital. Precautions: Subjective: I'm getting straight, no more drinking and drugs and that kind of thing. At start of therapy session, patient found in bed and with no alarm. Pain: Patient has No c/o pain Activities of Daily Living Feeding: NT Grooming/Bathing: not tested pt declines Upper Extremity Dressing: Minimal assist to adjust gown in standing Lower Extremity Dressing: Stand By Assist to don tennis shoes, cues to tie shoes 2/2 distracted Toileting/Transfers: not tested pt declines need Mobility: Assist device: Wheeled Walker Supine to/from Sit:Stand By Assist Sit to/from Stand: Minimal assist Bed to/from Chair: not tested Functional Mobility: Functional household distances with Stand By Assist Splint Issued/Checked: none Splint Check Completed: N/A Balance: Static Sitting: fair plus Dynamic Sitting: fair plus Static Standing: fair Dynamic Standing: fair with w/w Observations: Pt completed functional hallway navigation with moderate cues for navigation and extra time. Pt completed divided attention task- stating months of the year while navigating hallway andlooking for specific room. Pt completed with min to moderate assistance to complete with 1-2 cues for inattention. Activity tolerance: fair plus Cognitive/Perceptual: Pt follows 1 step commands 100% of the time with cues. Pt with fair minus safety awareness and insight into deficits. Treatment/Therapeutic Exercise: Treatment session this date focused on ADL training Cognitive retraining Functional transfer training Energy conservation Safety awareness Patient/Family Teaching: Mobility, Self care and Patient voiced understanding of instructions given Equipment Issued: none Update Treatment Plan/Goals : Pt continues to benefit from skilled OT to improve independence with activities of daily living, increase strength, endurance, range of motion and decrease pain. Continue per POC. Short Term Goals: Patient will increason orientation to person, place, time and situation Patient will perform grooming Standing at sink and With min assist Patient will transfer to toilet With min assist Patient will perform sit to stand With stand by assist Patient will perform bed to chair With stand by assist Nursing Home Goal:Patient to discharge to appropriate next level of inpatient care If patient is discharged from the facility, this note serves as a discharge note if further occupational therapy visits did not occur. Following therapy session, patient left in bed and with call light within reach. Cami Yarbrough OT * Naa Chicas, PT - 12/29/2018 9:07 AM CDT [facility] Physical Medicine and Rehabilitation PhysicalTherapy Progress Note Patient: Bi Tabor Med Record Number: [id number] Date of : 1960 Age: [age] year old Discharge Recommendation: Patient will benefit from multidisciplinary inpatient therapies. Frequency: Patient to be scheduled 5x/week while in hospital. Subjective: Pt agreeable to PT tx, requests to wear tennis shoes for walking as he has calluses on his feet which are painful if walking in socks only. Patient currently using Wheeled Walker and has equipment at home. No equipment needs if d/c home. Mental Status: alert, follows 1 step commands 100%, impaired attention to task At start of therapy session, patient found in bed and with bed alarm on. Pain: Patient has 0 out of 10 pain. Nurse notified. Weight Bearing Status: WBAT Mobility: Rolling: not tested Supine to Sit: Stand By Assist (HOB at 30 deg, uses bedrail) Sit to Supine: Stand By Assist Sit to Stand:Minimal assist with WW Bed to Chair: Minimal assist with WW Gait: Device: Wheeled Walker Assistance: Minimal assist Distance: 200 feet Deviations: decreased gait speed, forward trunk flexion, increased UE WB on AD; when ambulating in hallway pt with 3 balance disruptions when turning head to look at surrounding objects/people - requires physical assistance from therapist to keep from falling Balance: Static Sitting: good Dynamic sitting: fair Static Standing: fair with WW Dynamic Standing: fair minus with WW Activity Tolerance: Patient's activity tolerance: fair Treatment/therapeutic Exercise: Pt seen for bed mobility, transfer training, and gait training withWW. Pt requires min A to concetta pants in supine (completes bridging with verbal cues) and max A to concetta tennis shoes in sitting. Patient/Family Teaching: Gait and Mobility Patient demonstrated Fair understanding of instructions given. Short Term Goals: Patient will transfer supine to/from sit With stand by assist Sit to stand goal: With stand by assist Patient will perform rolling Independently Patient will transfer bed to/from chair With stand by assist Patient will ambulate 101-150 feet, With minimal assist and With assistive device ? Nursing Home Goal(s): Patient to discharge to appropriate next level of inpatient care Update Treatment Plan: progress gait with WW as tolerated If patient is discharged from the facility, this note serves as a discharge note if further physical therapy visits did not occur. Following therapy session, patient left in bed in chair position, with bed alarm on and with call light within reach. Naa Chicas, PT 12/29/2018 * Meera Cherry RN - 12/28/2018 11:51 PM CDT Problem: High Fall Risk (Score greater than/equal to 15) Goal: Patient will have lower fall risk. Outcome: Ongoing Patient alert and oriented with periods of confusion. Padded side rail with bed in low position * Elizabeth Sullivan RN - 12/28/2018 3:50 PM CDT Pt is new to my service today, 12/28/18. Pt is OBS Class. A Chart Review has been conducted by Case Management. Anticipated level of care at discharge: Unknown Discharge Plan: PT recommendations are for SNF. Pt only agreeable if his check doesn't have to go there. Referral to SW. Pt has family support. Family fills his pill workforce planner, but patient often forgets to take the medications. CM printed off materials for medication planners with timers and left at bedside. Pt aware. Pt's sisters phone number is [phone]. Basic Needs Assessment (BNA) Score: 11 PCP: Misael Maradiaga, Per nursing assessments: Transportation (who): Family if dispo to home. Finish Grinder/Support: Finish Grinder person: Home/Functional Status: ?. Will continue to follow. For any questions or needs please contact: Copy Room Technician Name/Phone number: Elizabeth Sullivan RN [phone] * Delilah Man PT - 12/28/2018 12:34 PM CDT [facility] Physical Medicine and Rehabilitation Physical Therapy Initial Evaluation Note Patient: Bi Tabor [facility] Record Number: [id number] Date of : 1960 Age: [age] year old Discharge Recommendation: Patient will benefit from multidisciplinary inpatient therapies. Frequency: 5x/week Patient currently using Wheeled Walker and has equipment at home. No equipment needs if d/c home. Occupational Therapy contacted regarding patient status and/or discharge plan. Physician Orders: Evaluation and Treat PRECAUTIONS: Seizure Activity Level as tolerated DIAGNOSIS: Patient Active Problem List: Seizure Headache, unspecified headache type Past Medical History: Diagnosis Date ??? CVA (cerebral vascular accident) ??? HTN (hypertension) ??? Seizure SUBJECTIVE: My leg is amputated pointing to his R lower leg PATIENT GOALS: none given Home living: Type of Residence: Apartment Lives with:: Alone Steps to Enter: No Home Structure: One Story Primary Bedroom: First Floor Primary Bathroom: First Floor Bathroom : Tub/Shower Combo Equipment At Home: Grab Bars;Tub Transfer Bench;Walker-2 Wheeled Prior Function: Mobility: Ambulate-In Home ;Independent;With Assistive Device Fallen Within 6 Mos: 4 Have Help at Home?: Yes, there is help at home now At start of therapy session, patient found in bed, with no alarm and gown off and all EKG leads off Pain: Patient has 9/10 pain in bilat feet but does not appear to be in any distress Follow-up for pain: No follow-up for pain indicated and patient agreed to proceed with treatment OBJECTIVE: General Appearance: Thin male in NAD in bed Precautions: IV's: Peripheral line Skin, Incisions, Edema: Very dry skin lower legs Other: Vital Signs:(*Assess the 3 levels of oxygen saturations both for room air and 02 unless rest on room air is 88% or less). Rest: BP: HR: O2 SAT: Room Air L O2 Ex/Gait/Activity BP: HR: O2 SAT: Room Air L O2 Cool Down BP: HR: O2 SAT: Room Air L O2 Observations:No c/o dizziness or SOB during mobility or treatment MENTAL STATUS: Alert and oriented times 2; decreased insight; altered mental status; impulsive; lacks safety awareness DIRECTION FOLLOWING: Able to follow 1 step commands 100 % with some repeated cues ROM: WFL LES STRENGTH: Grossly WFL LES SENSATION:reports identical good sensation bilat lower legs TONE: WNL NEGLECT: none noted COORDINATION: pt unable to perform serial pinch bilat FUNCTIONAL MOBILITY Not Tested Not Applicable Independent Stand by Assist Minimal Moderate Maximum Dependent Rolling x Scooting x Supine to/from sit x Sit to/from Stand x Bed to/ chair x Observation: pt not up to chair secondary to seizure precautions BALANCE: Sitting Static: fair plus Dynamic: fair plus Standing Static: fair Dynamic: fair Observation: min-SB to sit EOB; occasionally would lean to far back GAIT: Weight Bearing: WBAT Distance: 30 feet Device: Wheeled Walker Assistance: Minimal assist of 2 Balance: fair Steps: NT fair endurance Observation: no DF/PF, barely lifts feet; needs assist with w/w at times and also would lose balance slightly posterior and require minx1 to regain ACTIVITY TOLERANCE: Patient's activity tolerance: fair TREATMENT/INTERVENTIONS: evaluation, bed mobility training, transfer training and gait training EDUCATION: While performing PT, Patient was instructed in:Functional mobility training/weight bearing status and Safety awareness/fall precaution Patient demonstrated Questionable understanding of instructions given. INFORMED CONSENT TO TREATMENT: Plan of care is discussed but patient with questionable understanding. ASSESSMENT: Patient's functional performance presently limited due to: medical condition, strength, endurance, bed mobility, transfers, gait, safety awareness, balance and cognition and Patient would benefit from additional Physical Therapy to achieve the following functional goals to enhance independence. Short Term Goals: Goal Formation Patient unable to participate in goal formulation, Patient will transfer supine to/from sit With stand by assist, Sit to stand goal: With stand by assist, Patient will perform rolling Independently, Patient will transfer bed to/from chair With stand by assist and Patient will ambulate 101-150 feet, With minimal assist and With assistive device Private [employer] Exchange Service Adviser Goal(s): Patient to discharge to appropriate next level of inpatient care Equipment Issued: gait belt Plan: If patient is discharged from the facility, this note serves as a discharge summary if further physical therapy visits did not occur. Following therapy session, patient left in bed and with call light within reach Delilah Man, PT 12/28/2018 * Delilah Man, PT - 12/28/2018 11:31 AM CDT [facility] Department of Physical Medicine & Rehabilitation Progress Note Patient: Bi Tabor Med Record Number: [id number] Date of : 1960 Age: [age] year old Patient seen for eval and full note to follow. Discharge recommendation is Patient will benefit from multidisciplinary inpatient therapies. Delilah Man, PT 12/28/2018 11:32 AM * Brian Lawrence MD - 12/28/2018 11:17 AM CDT Neurology Progress Note Patient: Bi Tabor Room: 521 Age: [age] year old Interval Events: Patient had some agitation overnight and required Haldol followed by Ativan. No further episodes noted. Patient less postictal this morning. Answers questions appropriately but has difficulty with namingdays of week backwards. Dr. Feliciano has good familiarity with this patient and reports that patient has been known to have postictal state for days. History of Present Illness Patient is a 58M with PMH of seizure, stroke and HTN who presented to the ED from the neurology clinic today after having a seizure. Family present with patient today and describes as tensing up andnot responding . Sister also reports that patient was seen in the ED at [facility] yesterday after having a seizure and was told that his medications were too strong for him. Patient was foundto have hyponatremia at OSH and apparently made changes to patient's medications. In the neurology clinic today patient was noted to be lethargic and agitated c/o severe headache that started last night. Has had multiple visits to [facility] ED for similar presentation. In the ED CT head was unable to be obtained due to patient agitation. Notable labs: Na 135, WBC 15.1, Valproic acid level 34, Keppra level pending. Objective: BP 124/76 Pulse 79 Temp 97.6 ??F (36.4 ??C) Resp 18 Ht 1.803 m (5' 11 ) Wt 65.8 kg (145 lb) SpO2 100% BMI 20.22 kg/m2 Temp (30hrs) Max:99 ??F (37.2 ??C) Body mass index is 20.22 kg/(m^2). Exam: General : NAD, mildly postictal HEENT: Head normocephalic and atraumatic Heart: Regular rate and rhythm without murmur Lungs: Clear to auscultation bilaterally Abdomen: Non-tender, non-distended Extremities: No cyanosis or edema noted Cortical Function: MS: Awake, Alert, Follows Commands Oriented to Person, Place and Time VF Intact to confrontation test Neglect No visual neglect, No tactile neglect Cranial Nerves: Pupils 4 mm reactive bilat, Full EOM, No ptosis or nystagmus Facial sensation intact bilaterally to LT; No facial palsy Hearing intact to finger rub bilaterally Palate symmetric; Normal tongue protrusion Motor: Abnormal Movements: None Bulk: Normal Tone: Normal Strength: Appropriate for Age RUE 5/ LUE 5 RLE 10/01 LLE 5 DTR: Bi Tri BR Pat Ach Toes R 2 2 2 2 2 Down L 2 2 2 2 2 Down Sensory: Intact to light touch, pin prick, temperature and vibration Cerebellar: FNF, HKS, FREEDOM intact bilaterally Gait: deferred Labs: Recent Results (from the past 24 hour(s)) URINALYSIS W/MICROSCOPIC NO CULTURE Collection Time: 12/27/18 5:21 PM Result Value Ref Range Color UA Straw Straw, Yellow, Colorless Clarity UA Clear Clear, Slt Cloudy Specific [place] UA 1.006 1.005 - 1.030 pH UA 6.0 5.0 - 8.0 pH Protein UA Negative Negative mg/dL Glucose UA Negative Negative mg/dL Ketone UA Trace (Abnormal) Negative mg/dL Bilirubin UA Negative Negative mg/dL Blood UA Negative Negative Nitrite UA Negative Negative Leukocyte Esterase Negative Negative Urobilinogen UA Negative Negative mg/dL RBC UA 0-2 None Seen, 0-2, 3-5 /HPF WBC UA 0-5 None Seen, 0-5 /HPF Squamous Epithelial Cells UA None Seen None Seen, 0-2 /HPF DRUG SCREEN TOX URINE PANEL Collection Time: 12/27/18 5:21 PM Result Value Ref Range Amphetamines Screen Urine [...] Screen Urine Negative Negative: < 300 ng/mL EKG 12-LEAD Collection Time: 12/27/18 10:46 PM Result Value Ref Range Ventricular Rate 99 BPM Atrial Rate 99 BPM P-R Interval 130 ms QRS Duration ms 86 ms Q-T Interval ms 352 ms QTC Calculation (Bezet) 451 ms Calculated P [place] 82 degrees Calculated R [place] 47 degrees Calculated T [place] 84 degrees Interpretation EKG NORMAL SINUS RHYTHM WITH SINUS ARRHYTHMIA 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) ABNORMAL ECG WHEN COMPARED WITH ECG OF 21-OCT-2018 13:05, NO SIGNIFICANT CHANGE WAS FOUND CBC W/O DIFFERENTIAL Collection Time: 12/28/18 3:47 AM Result Value Ref Range WBC 12.0 (H) 3.5 - 10.5 10??3/uL RBC 4.37 4.30 - 5.70 10??6/uL Hemoglobin 14.4 13.5 - 17.5 g/dL Hematocrit 40.8 39.0 - 50.0 % MCV 93.4 81.0 - 97.0 fL MCH 33.0 28.0 - 34.0 pg MCHC 35.3 32.0 - 36.0 g/dL Platelet Count 180 150 - 400 10??3/uL RDW-SD 41.1 36.0 - 50.0 fL RDW-CV 11.9 11.2 - 14.8 % MPV 10.5 9.3 - 12.8 fL nRBC Absolute 0.00 0 10??3/uL nRBC Auto 0.0 0 /100 WBC BASIC METABOLIC PANEL (CALCIUM TOTAL) Collection Time: 12/28/18 3:47 AM Result Value Ref Range BUN 9 7 - 26 mg/dL Creatinine 0.8 0.6 - 1.2 mg/dL Sodium 139 136 - 145 mmol/L Potassium 3.8 3.5 - 4.5 mmol/L Chloride 104 98 - 107 mmol/L CO2 22 22 - 29 mmol/L Glucose 87 70 - 115 mg/dL Calcium 9.4 8.4 - 10.2 mg/dL Anion Gap 17 8 - 18 BUN/Creatinine Ratio 11 7 - 23 Osmolality Calculated 286 270 - 300 mOsm/kg eGFR >60 >60 mL/min/1.73 m2 Assessment and Plan: Mr. Bi Tabor is a 58M who presented to the ED from the neurology clinic after having a seizure. This was likely breakthrough seizures 2/2 medication adjustments possibly with some component on poorcompliance. #seizure -cont home Keppra 2,000 mg BID -cont home Depakote DR 500 mg BID -d/c home oxcarbazepine -cont Aptiom 800 mg BID (home supplied) ?? #hyponatremia, resolved -Na 130 on 11/27, 135 this admission, 139 today -could be 2/2 oxcarbazepine -oxcarbazepine d/c'ed, Aptiom started -NaCl tabs 1g daily ?? #HTN -home amlodipine ?? #Hx of stroke -asa, atorvastatin Dispo--acute rehab or SNF pending placement and patient acceptance Discussed Assessment and Plan with Attending Physician, Wandy Lawrence MD PGY-3 Neurology Associated attestation - Verito Saba MD - 12/28/2018 5:03 PM CDT Attending note: Pt was seen and evaluated and examined the patient with the neurology resident. I have verified thedocumentation of the resident including all history/exam, and medical decision-making details. I have personally performed a physical exam and have personally reviewed the data to support my medical decision making as outlined in the resident's note and I arrive independently at the same conclusion. Date of service: 12/28/18 In brief: Patient is a 58 y/o well known to neurology as he is followed by and he had several admission (latest was earlier in November) with same presentation. 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 He was on keppra 2 gm BID and VPA 500 mg BID alongwith trileptal. On the day of admission he was seen in the clinic and he reported an episode of witnessed sz. He woke up in the morning and he was staring and his arms were reaching out as his brother said. Eyes were staring and he was not responsive. Duration is unclear byt around 5 minutes followed by prolonged post ictal confusion and amnesia. No aura reported except staring per his brother. sz are fairly controlled when he is taking his medications- his brother said. Pt lives alone and heis visited daily by his brother who sorts his AEDs for 2 days and check to see that he followed theinstructions but his brother reports that patient has not been compliant with his medications as heis often forgetting to take the night dose. Family is considering options for placement as he said. No injuries and no falls and no tongue biting and no incontinence. Last GTC was long time ago as brother said. His labs shows low level of VPA and low Na. He was switched from trileptal to Aptiom BID per his neurologist. No Known Allergies Past Medical History: Diagnosis Date ??? CVA (cerebral vascular accident) ??? HTN (hypertension) ??? Seizure PMH: stroke and epilepsy as above. PSH: None Social History Substance Use Topics ??? Smoking status: Current Every Day Smoker Packs/day: 0.25 Years: 15.00 ??? Smokeless tobacco: Never Used ??? Alcohol use No Comment: last drink 2016 FH: reviewed and no FH of seizure. No current facility-administered medications on file prior to encounter. Current Outpatient Prescriptions on File Prior to Encounter Medication Sig Dispense Refill ??? acetaminophen (TYLENOL) [...] 1 tablet by mouth 2 times daily 60 tablet 11 ??? folic acid (FOLVITE) 1 MG tablet Take 1 tablet by mouth once daily 30 tablet 11 ??? ibuprofen (MOTRIN) 600 MG tablet ??? levETIRAcetam (KEPPRA) 1000 MG tablet Take 2 tablets by mouth 2 times daily 60 tablet 11 ??? tamsulosin (FLOMAX) 0.4 MG capsule ??? thiamine (VITAMIN B-1) 100 MG tablet Take 1 tablet by mouth once daily 30 tablet 11 Exam BP 124/76 Pulse 79 Temp 97.6 ??F (36.4 ??C) Resp 18 Ht 5' 11 (1.803 m) Wt 145 lb (65.8 kg) SpO2 100% BMI 20.22 kg/m2 Neurological exam: Mental status: Alert, awake, responsive, oriented to time and place and person, attentive Language: dysarthria with good comprehension Cranial nerves: CN II: Pupils are normal reactive to light CN III- through : normal horizontal without nystagmus. No clear VF cut CN V: abormal facial sensation and good masseter CN VII: right LMN facial weakness CN VIII: Normal hearing bilaterally. CN IX, X: Normal palate elevation and sensation CNXII: Normal tongue protruding, No tongue weakness or fasciculations or atrophy Motor: Tone: normal. No spasticity or rigidity. Bulk: thinning or hands and feet muscles. Hammer toes and prominent arches Muscle strength is Neck Flexors 5 Neck extensors 5 SA 5 5 (R/L) EF 5 5 (R/L) EE 5 5 (R/L) WE 5 5 (R/L) WF 5 5 (R/L) APB 5 5 (R/L) FDI 5 5 (R/L) FF` 5 5 (R/L) HF 5 5 (R/L) KE 5 5 (R/L) KF 5 5 (R/L) ADF 5 5 (R/L) DTR or Muscle Stretch Reflexes: Jaw jerk is brisk BR: 3/3 (R/L), TC: 3/3 (R/L), BR 3/3 (R/L) QC 3+/3+ with cross adduction (R/L), AJ 0/0 (R/L) No Babinski bilaterally Sensory exam: Uexts: normal position, proprioception, and vibration in the hands distally. Normal touch in the hands throughout bilaterally. LExts: normal position, proprioception, and vibration in the toes bilaterally , normal touch and pinprick at the toes and throughout bilaterally. Cerebellar exam: Normal FREEDOM in the hands and normal heel toes in the feet bilaterally, Normal FNF in the hands bilaterally, and normal HTC bilaterally, No tremors noted in the hands and in the face. Gait: deferred. Data Ct Head Wo Contrast Result Date: 12/28/2018 IMPRESSION: No acute intracranial hemorrhage, mass effect, midline shift. 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 Dictated by Kamila Childs M.D. (residential manager). This report was approved by Kamila Childs on 12/28/2018 7:35 AM . I, Dr. WOJCIECH NEIL have personally reviewed and interpreted this examination/study. This reportwas electronically signed by WOJCIECH NEIL on 12/28/2018 7:35 AM . Impression: This is a 58 year old patient with recent breakthrough seizure due to confusion/non compliance withhis home AEDs per his brother as above. His AEDs were adjusted per and he remained asymptomatic and back to baseline but brother expressed that his sister (who is the other animal caretaker) islooking to get him to a NH as it has become difficult to care for him (he lives alone). Plan: We will consult SW to follow on his options for placement Continue keppra at 2 gm BID contineu VPA at 500 mg BID Continue Aptiom at the current dose. sz precautions were discussed. Awaiting placement. Verito Saba M.D Attending * Svetlana Skaggs, OT - 12/28/2018 11:00 AM CDT [facility] Physical Medicine and Rehabilitation Occupational Therapy Initial Evaluation Note Patient: Bi Tabor [facility] Record Number: [id number] Date of : 1960 Age: [age] year old Co eval with PT 2/2 unknown level of assist Discharge Recommendation: Patient will benefit from multidisciplinary inpatient therapies. Frequency: Patient to be scheduled 5x/week while in hospital. Plan: ADL training Adaptive equipment training Cognitive retraining Functional transfer training Endurance training Bed mobility Energy conservation Safety awareness HEP training Physician Orders: Evaluation and Treat Precautions: seizure precautions (pads on bedrail) DIAGNOSIS: Patient Active Problem List: Seizure Headache, unspecified headache type Past Medical History: Diagnosis Date ??? CVA (cerebral vascular accident) ??? HTN (hypertension) ??? Seizure SUBJECTIVE / PATIENT GOALS: My leg feels amputated. Patient agreeable to participate. Patient reports he lives alone, was independent in BADLs, cooking, cleaning prior to admission. Patient reportshis siblings stop by daily to assist with medication management, bill management, rides to doctor/grocery store. Patient reports he used a rollator prior to admission. Home living: Type of Residence: Apartment Lives with:: Alone Steps to Enter: No Home Structure: One Story Primary Bedroom: First Floor Primary Bathroom: First Floor Bathroom : Tub/Shower Combo Equipment At Home: Grab Bars;Tub Transfer Bench;Walker-2 Wheeled Prior Function: Mobility: Ambulate-In Home ;Independent;With Assistive Device Fallen Within 6 Mos: 4 Have Help at Home?: Yes, there is help at home now At start of therapy session, patient found in bed and with bed alarm on. Pain: Patient has 9/10 pain in bilateral feet. Pt appears to be in NAD. Follow-up for pain: Yes, Informed nurse/physician about pain issue OBJECTIVE: General Appearance: 58 y/o male supine in bed in NAD. Precautions: None Edema: None noted Vital Signs:(*Assess the 3 levels of oxygen saturations both for room air and 02 unless rest on room air is 88% or less). Pre-activity BP: HR: SpO2: Room Air L O2 Peak activity BP: HR: SpO2: Room Air L O2 Post cool down BP: HR: SpO2: Room Air L O2 Cognitive: Patient A&Ox [facility]. Pt able to identify 2019 but disoriented to month/date. Patient presents with decreased safety awareness and decreased insight to deficits. Pt with increased impulsivity (i.e. Throws self back into bed without warning). Patient able to follow 100% of simple commands. Patient tangential/confused in conversation this date. Perceptual: WFL Upper extremity range of motion: B UE ROM WFL Upper extremity strength: B UE strength 4-/5 grossly Tone: No abnormal tone noted Coordination: Pt unable to complete bilateral serial opposition despite maximum verbal/visual cues. Sensation: Pt reports B U/E light touch sensation intact, despite stating his R LE had a funny feeling Patient's activity tolerance: fair plus Comments: Pt able to tolerate functional ambulation bedroom distance without rest break. FUNCTIONAL MOBILITY Not tested Independent Stand by Assist Minimal Moderate Maximum Dependent Rolling X Supine to/from sit X Sit to/from Standing X Bed to/from chair X Chair not tested 2/2 seizure precautions Functional mobility of ambulation to sink/bathroom with: Minimum assist of 1-2 using w/w. Pt with decreased safety awareness & insight during functional mobility. Balance: pt with flexed trunk standing posture - requires verbal cues for upright posture during standing. Static Sitting: fair Dynamic Sitting: fair minus Static Standing: fair minus Dynamic Standing: fair minus Activities of Daily Living Feeding: Not tested Grooming/Bathing: not tested Upper Extremity Dressing: Moderate assist to don gown long sitting in bed. Increased verbal cues required. Lower Extremity Dressing: Stand By Assist to don/doff bilateral socks sitting at EOB. Toileting/Transfers: not tested - declined toileting needs Splint Issued/Checked: none TREATMENT / EDUCATION / EVALUATION: Purpose of Occupational Therapy evaluation explained. While performing mobility and self care, Patient was instructed in: Functional mobility training/weight bearing status, Cognitive retraining, Safety awareness/fall precaution, Discharge plan, Self care training and Use of adaptive equipment Presented to patient who demonstrates Questionable understanding of instructions given. INFORMED CONSENT TO TREATMENT: Plan of care including recommended therapy, goals and frequency, as well as potential risks and benefits of treatment/assessment explained to patient. Patient understands and agrees to proceed. ASSESSMENT: Patient to benefit from continued skilled OT to improve independence with actities of daily living, increase strength, endurance, range of motion, and decrease pain. Continue goals per plan of care. Functional performance limited due to: limited activities of daily living, pain, decreased mobility, decreased cognition, upper extremity function, endurance and decreased safety awareness, Patient continues to benefit from skilled Occupational Therapy to achieve the following functional goals. andEquipment Issued: gait belt Nurse and PT contacted regarding patient status and/or discharge plan. Short Term Goals: Patient will increason orientation to person, place, time and situation Patient will perform grooming Standing at sink and With min assist Patient will transfer to toilet With min assist Patient will perform sit to stand With stand by assist Patient will perform bed to chair With stand by assist Private Branch Exchange Service Adviser Goal: Patient to discharge to appropriate next level of inpatient care If patient is discharged from the facility, this note serves as a discharge summary if further occupational therapy visits did not occur. Following therapy session, patient left in bed, with bed alarm on, with call light within reach andwith RN/CP rehab cues written on white board. Svetlana Skaggs OT 12/28/2018 * Rachel Colbert, RN - 12/27/2018 11:00 PM CDT Pt up from ED answering orientation questions correctly. Pt seeing things around him and accusing staff of making his bed wet. Pt redirected and becoming more agitated. Neurology paged. Order for 5 of Haldol IM given. Pt continues to exit bed causing alarm to sound. Pt verbally aggressive to all staff. Pt continuing to see things that are not present and escalating. 2 mg ativan IV given. Pt resting peacefully in bed. VSS. Bed alarm on. Will continue to monitor. * Meredith Reed RN - 12/27/2018 6:11 PM CDT Pt presents to the Er with c/o having seizures. Pt has a hx of seizures and PCP decreased seizure medication. Pt is still confused and following simple commands * Ck Feliciano MD - 12/27/2018 3:21 PM CDT Patient in ED. Awake, alert, withdrawn. Has observed the patient like this before in post-ictal state. May take over a day to recover. Recommend discuss with inpatient Neurology regarding Observation/Admission if required. Apparently has hyponatremia ~ 130, went to OSH. Levetiracetam ?stopped given supratherapeutic. Discussed with sister. He has been on Levetiracetam at higher dosage before in the past (750 mg tab, 3 - 3) - this current dosage is actually lower than what he used to take. Not LEV related. Most likely symptomatic hyponatremia, probably in parts due to OXC. Recommend: Levetiractam 1000 mg 2 - [address] 500 mg 1 - 1 Stop Oxcarbazepine Start Aptiom 800 mg Nightly NaCl Tablet 1 gm 1 - 1 Come to see me on 01/15/2019, and will recheck labs/adjust further if needed. Gave 14-day supply of Aptiom to Neurology. documented in this encounter H&P Notes * Brian Lawrence MD - 12/27/2018 5:20 PM CDT Neurology History and Physical Date of Encounter: 12/27/18 Chief Complaint: seizure HPI: Patient is a 58M with PMH of seizure, stroke and HTN who presented to the ED from the neurology clinic today after having a seizure. Family present with patient today and describes as tensing up andnot responding . Sister also reports that patient was seen in the ED at [facility] yesterday after having a seizure and was told that his medications were too strong for him. Patient was foundto have hyponatremia at OSH and apparently made changes to patient's medications. In the neurology clinic today patient was noted to be lethargic and agitated c/o severe headache that started last night. Has had multiple visits to [facility] ED for similar presentation. In the ED CT head was unable to be obtained due to patient agitation. Notable labs: Na 135, WBC 15.1, Valproic acid level 34, Keppra level pending. Of note patient is well-known to Dr. Feliciano who also saw patient and gave recommendations. ROS: General Negative except per HPI Eyes Negative except per HPI ENT Negative except per HPI Pulmonary Negative except per HPI Cardiac Negative except per HPI GI Negative except per HPI Negative except per HPI Neurologic Per HPI Psychiatric Negative except per HPI Skeletal Negative except per HPI Endocrine Negative except per HPI Infectious Negative except per HPI Allergies No Known Allergies Home Medications: Current Facility-Administered Medications: 0.9% NaCl injection 3 mL And 0.9% NaCl injection 1-10 mL amLODIPine (NORVASC) tablet 5 mg aspirin (ASPIRIN) chew tablet 81 mg atorvastatin (LIPITOR) tablet [address] (DEPAKOTE) tablet 500 mg folic acid (FOLVITE) tablet 1 mg heparin injection 5,000 Units levETIRAcetam (KEPPRA) tablet 2,000 mg PATIENT SUPPLIED MEDICATION 800 mg tamsulosin (FLOMAX) capsule 0.4 mg Current Outpatient Prescriptions: acetaminophen (TYLENOL) 325 MG tablet amLODIPine (NORVASC) 5 MG tablet Take 1 tablet by mouth once daily aspirin (ASPIRIN) 81 MG chew tablet Take 1 tablet by mouth once daily atorvastatin (LIPITOR) 20 MG tablet clonazePAM (KLONOPIN) 0.5 MG tablet Take 1 tablet as needed after a seizure to prevent clustering, every 8 hours as needed. Cyanocobalamin (B-12) 1000 MCG Take 1 mg by mouth once daily divalproex DR (DEPAKOTE) 500 MG tablet Take 1 tablet by mouth 2 times daily eslicarbazepine (APTIOM) 800 MG tablet Take 1 tablet by mouth once daily folic acid (FOLVITE) 1 MG tablet Take 1 tablet by mouth once daily ibuprofen (MOTRIN) 600 MG tablet levETIRAcetam (KEPPRA) 1000 MG tablet Take 2 tablets by mouth 2 times daily tamsulosin (FLOMAX) 0.4 MG capsule thiamine (VITAMIN B-1) 100 MG tablet Take 1 tablet by mouth once daily PMH: Past Medical History: No date: CVA (cerebral vascular accident) No date: HTN (hypertension) No date: Seizure Family History: No family history on file. Social History: Social History Marital status: Single Spouse name: N/A Years of education: N/A Number of children: N/A Occupational History None on file Social History Main Topics Smoking status: Current Every Day Smoker 0.25 Packs/day For 15.00 Years Smokeless tobacco: Never Used Alcohol use No Comment: last drink 2015 Drug use: No Comment: occasional Sexual activity: Not Currently Other Topics Concern None on file Social History Narrative Physical Exam: Vitals: 12/27/18 12/27/18 1138 [id number] BP: 129/81 140/73 Pulse: 99 90 Resp: 16 18 Temp: 98.8 ??F (37.1 ??C) SpO2: 98% 100% Weight: 65.8 kg (145 lb) Height: 1.803 m (5' 11 ) General : NAD, mildly postictal HEENT: Head normocephalic and atraumatic Heart: Regular rate and rhythm without murmur Lungs: Clear to auscultation bilaterally Abdomen: Non-tender, non-distended Extremities: No cyanosis or edema noted Cortical Function: MS: Awake, Alert, Follows Commands Oriented to Person, Place and Time VF Intact to confrontation test Neglect No visual neglect, No tactile neglect Cranial Nerves: Pupils 4 mm reactive bilat, Full EOM, No ptosis or nystagmus Facial sensation intact bilaterally to LT; No facial palsy Hearing intact to finger rub bilaterally Palate symmetric; Normal tongue protrusion Motor: Abnormal Movements: None Bulk: Normal Tone: Normal Strength: Appropriate for Age RUE 5/5 LUE 5/5 RLE 5/5 LLE 5/5 DTR: Bi Tri BR Pat Ach Toes R 2 2 2 2 2 Down L 2 2 2 2 2 Down Sensory: Intact to light touch, pin prick, temperature and vibration Cerebellar: FNF, HKS, FREEDOM intact bilaterally Gait: deferred Assessment: Mr. Bi Tabor is a 58M who presented to the ED from the neurology clinic after having a seizure. This was likely breakthrough seizures 2/2 medication adjustments possibly with some component on poorcompliance. Plan: #seizure -cont home Keppra 2,000 mg BID -cont home Depakote DR 500 mg BID -d/c home oxcarbazepine -start Aptiom 800 mg BID (home supplied) #hyponatremia, mild -Na 130 on 11/27, 135 this admission -could be 2/2 oxcarbazepine -oxcarbazepine d/c'ed, Aptiom started -NaCl tabs 1g daily #HTN -home amlodipine #Hx of stroke -asa, atorvastatin Case findings discussed with Drs. Saba and Jodie Lawrence MD Neurology Resident Associated attestation - Verito Saba MD - 12/28/2018 5:08 PM CDT Attending note: Date of evaluation 12/27/2018 Pt was seen and evaluated with the neurology resident while in the ED. He declined exam and he was post ictal and he was agitated about his need to use the toilet. Reports of breakthrough seizure related to non compliant with his multiple AEDs. Patient is not able to provide much informations. He reports waking up with seizure and was found by his sister who was visiting him. He reports no warning and no tongue biting or incontinence. Frequency of sz is once a month as he said. No recent provoking factors otherwise. Exam is deferred per his request. Impression: breakthrough sz related to non compliance with AEDs.no sz is reported clinically. Plan: Admit to neurology- observation Modify his AEDs per his neurologist's recommendations. Hyponatremia is likely induced by trileptal. sz precautions Anticipate discharge on December 28 if he return to baseline and was cleared by PT/OT. We will request their evaluation tomorrow. Verito Saba M.D Attending documented in this encounter ED Notes * Meredith Reed RN - 12/27/2018 9:10 PM CDT Report given to ALFRED Davis * Meredith Reed RN - 12/27/2018 6:14 PM CDT Pt is confused, but did answer questions appropriately. Pt is re-directable. Lying in bed at this time. Given all home medications. Swallow screen passed * Meredith Reed RN - 12/27/2018 6:12 PM CDT Seizure pads applied to the stretcher. * Caio Elder MD - 12/27/2018 5:47 PM CDT ASSUMED CARE NOTE Patient signed out to me by Dr. Quijano at 5:47 PM. Briefly, Bi Tabor is a 58 year old male is being evaluated for seizure. 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 He is on Keppra for Hx of seizures. The patient additionally has PMHx of CVA and HTN. He is post-ictal at this time consistent with normal post-ictal state per family. At this time the patient's condition is Stable. Thus far, studies reveal low sodium Pending bed availability Plan is admit to neurology to adjust patient's medications 8:24 PM - Patient with inpatient medicine bed availability. Clinical Impression: 1. Headache, unspecified headache type 2. Seizure Disposition: Admit to neurology By signing my name below, IGretchen, attest that this documentation has been prepared under the direction and in the presence of Dr. Elder. Signed: Laisha Hoffman. I, Dr. Elder, personally performed the services described in this documentation. All medical record entries made by the scribe were at my direction and in my presence. I have reviewed the chart andagree that the record reflects my personal performance and is accurate and complete. * Lakesha Malin RN - 12/27/2018 5:00 PM CDT Pt refuses to keep clothes on and refuses VS. Pt confused. MD aware. Will move to room shortly. Will cont to monitor. * Lakesha Malin RN - 12/27/2018 3:34 PM CDT Pt returned from CT. Pt unable to finish CT. aware. * Nic Zhu RN - 12/27/2018 1:19 PM CDT NEUROLOGY: Please call sister Ethyl regarding treatment [phone] * Zulma Quijano MD - 12/27/2018 11:58 AM CDT ED ATTENDING NOTE History: Bi Tabor is a 58 year old male with a past medical history that includes CVA, seizures, HTN is presenting to the ED s/p seizure. Per patient's sister and brother at bedside they statepatient was being seen by the nurse practitioner at the neurology clinic today when he had a seizure. Was sent for evaluation. Patient is currently taking Keppra, divalproex for seizures. Also has lorazepam at home in case he is having a seizure. States that they he was seen and evaluated in [facility] last month and they were told that his medications are too strong for him. Family states when he is taking his regular medications he is often out of it. Patient has been complaining of a headache. Denies visual changes, nausea, vomiting. Family member state that he has been urinating and passing bowel movements at baseline. They state that he has been intermittently too weak tostand. They state the patient lives alone and has difficulty managing his medications by himself. They have been considering placement. Family describes seizure today as tensing up and not responding. Also had 5 min seizure that night. Patient has no other complaints. Past Medical History: Diagnosis Date ??? CVA (cerebral vascular accident) ??? HTN (hypertension) ??? Seizure No past surgical history on file. Social History Social History ??? Marital status: Single Spouse name: N/A ??? Number of children: N/A ??? Years of education: N/A Occupational History ??? Not on file. Social History Main Topics ??? Smoking status: Current Every Day Smoker Packs/day: 0.25 Years: 15.00 ??? Smokeless tobacco: Never Used ??? Alcohol use No Comment: last drink 2015 ??? Drug use: No Comment: occasional ??? Sexual activity: Not Currently Other Topics Concern ??? Not on file Social History Narrative Review of Systems: Review of Systems Constitutional: Negative for chills and fever. HENT: Negative for rhinorrhea. Eyes: Negative for visual disturbance. Respiratory: Negative for shortness of breath. Cardiovascular: Negative for chest pain. Gastrointestinal: Negative for abdominal pain, constipation, diarrhea, nausea and vomiting. Genitourinary: Negative for difficulty urinating. Musculoskeletal: Negative for arthralgias and back pain. Skin: Negative for wound. Neurological: Positive for seizures, weakness and headaches. Exam: Vitals: 12/27/18 1138 BP: 129/81 Pulse: 99 Resp: 16 Temp: 98.8 ??F (37.1 ??C) SpO2: 98% Weight: 65.8 kg (145 lb) Height: 1.803 m (5' 11 ) Physical Exam Constitutional: He is oriented to person, place, and time. frail HENT: Head: Normocephalic and atraumatic. Eyes: EOM are normal. Neck: Neck supple. Cardiovascular: Normal rate and regular rhythm. Pulmonary/Chest: Effort normal and breath sounds normal. Abdominal: Soft. Bowel sounds are normal. He exhibits no distension. There is no tenderness. Musculoskeletal: He exhibits no deformity. Neurological: He is alert and oriented to person, place, and time. Mental Status: awake, alert, orientedx3 Higher cerebral function: speech-non aphasic Cranial Nerves: II-XII intact. Motor Function: Bilateral upper and lower extremities- 5/5 Sensation Function: Bilateral upper and lower extremities- normal to light touch Coordination: Normal finger to nose bilaterally; required continued coaxing for F-t-N on L Skin: Skin is warm and dry. Psychiatric: He has a normal mood and affect. Labs Reviewed - No data to display No orders to display Medications - No data to display Assessment/Plan: 58 year old male with above history brought for evaluation of seizure. DDx: Medication noncompliance versus ICH versus electrolyte abnormality versus intoxication vs thyroid dysfunction vs other. labs reviewed, mild leukocytosis possibly reactive. No anemia. No marked electrolyte abnormalities.Subtherapeutic valproate level. TSH within normal limits. U tox negative. Patient unable to tolerate CT head. Patient seen evaluated in the ED by Dr. Feliciano. He states he is familiar with patient that patient is currently postictal. States it is typical postictal state per patient is climbing out of chair disrobing in the ED requiring constant redirection. He states he will change his medications. Request observation admission to Neurology service. Discussed with Neurology residents who accept patient for admission under . Awaits bed. 1. Work Up - See lab and radiology orders 2. Therapy - See orders Procedure done at this time No Ultrasound done at this time No Clinical Impression: 1) seizures 2) subtherapeutic medication levels Disposition: Admitted to neuro - awaits bed. Care transitioned to Dr. Elder documented in this encounter Plan of Treatment Upcoming Encounters Date Type Department Care Team (Late st Contact Info) Description 12/05/2024 1:00 PM CDT Office Visit [facility] - Neurology [address] [place] [address], [facility] [place] [address] Sean Raymundo DO [address] [place] [address] [place] [address] documented as of this encounter Procedures Procedure Name Priority Date/Time Associated Diagnosis Comments CARDIAC EKG ORDER 06/20/2019 11: 03 AM IT SECURITY ARCHITECT CARDIAC EKG ORDER 01/05/2019 4:1 4 PM CDT CBC W AUTO DIFFERENTIAL AM Draw 12/29/2018 8:44 AM CDT Seizure (HCC) BASIC METABOLIC PANEL (CALCIUM TOTAL) AM Draw 12/29/2018 8:44 AM CDT Seizure (HCC) MAGNESIUM BLOOD Routine 12/29/2018 8:44 AM CDT Seizure (HCC) CBC W/O DIFFERENTIAL Routine 12/28/2018 3:47 AM CDT Seizure (HCC) BASIC METABOLIC PANEL (CALCIUM TOTAL) Routine 12/28/2018 3:47 AM CDT Seizure (HCC) EKG 12-LEAD Routine 12/27/2018 10:46 PM CDT Seizure (HCC) CT HEAD WO CONTRAST STAT 12/27/2018 8 :56 PM CDT Headache, unspecified headache type URINALYSIS W/MICROSCOPIC NO CULTURE STAT 12/27/2018 5:21 PM CDT URINE DRUG SCREEN IMMUNOASSAY STAT 12/27/2018 5:21 PM CDT LEVETIRACETAM LEVEL STAT 12/27/2018 1 2:39 PM CDT CBC W AUTO DIFFERENTIAL STAT 12/27/2018 12:39 PM CDT COMPREHENSIVE METABOLIC PANEL STAT 12/27/2018 12:39 PM CDT TSH ANGELLA 12/27/2018 12:39 PM CDT VALPROIC ACID LEVEL STAT 12/27/2018 1 2:39 PM CDT documented in this encounter Results * CARDIAC EKG ORDER (06/20/2019 11:03 AM IT SECURITY ARCHITECT) Narrative 06/20/2019 11:03 AM IT SECURITY ARCHITECT Ordered by an unspecified provider. Scanned Document CARDIAC SERVICES ORD ERABLES * CARDIAC EKG ORDER (01/05/2019 4:14 PM CDT) Narrative 01/05/2019 4:14 PM CDT Ordered by an unspecified provider. Scanned Document CARDIAC SERVICES ORD ERABLES * MAGNESIUM BLOOD (12/29/2018 8:44 AM CDT) Pathologist [facility] Magnesium 1.8 1.6 - 2.6 mg/dL 12/29/2018 9:14 AM [facility] Blood BLOOD SPECIMEN / Unknown Lab Venipuncture / Unknown 12/29/2018 8:44 AM CDT 12/29/2018 8:54 AM CDT David Escalera MD LAB - CHEMISTRY [facility] Organization Address City/State/[facility] Co de Phone Number [address] [phone] * BASIC METABOLIC PANEL (CALCIUM TOTAL) (12/29/2018 8:44 AM CDT) BUN 11 7 - 26 mg/dL 12/29/2018 9:14 AM [facility] Creatinine 0.8 0.6 - 1.2 mg/dL 12/29/2018 9:14 AM [facility] Sodium 140 136 - 145 mmol/L 12/29/2018 9:14 AM [facility] Potassium 3.8 3.5 - 4.5 mmol/L 12/29/2018 9:14 AM [facility] Chloride 103 98 - 107 mmol/L 12/29/2018 9:14 AM [facility] CO2 23 22 - 29 mmol/L 12/29/2018 9:14 AM [facility] Glucose 94 70 - 115 mg/dL 12/29/2018 9:14 AM [facility] Calcium 9.4 8.4 - 10.2 mg/dL 12/29/2018 9:14 AM [facility] Anion Gap 18 8 - 18 12/29/2018 9:14 AM [facility] BUN/Creatinine Ratio 14 7 - 23 12/29/2018 9:14 AM [facility] Osmolality Calculated 289 270 - 300 mOsm/kg 12/29/2018 9:14 AM [facility] eGFR >60 >60 mL/min/1.7 3 m2 12/29/2018 9:14 AM [facility] Blood BLOOD SPECIMEN / Unknown Lab Venipuncture / Unknown 12/29/2018 8:44 AM CDT 12/29/2018 8:54 AM CDT David Escalera MD LAB - CHEMISTRY [facility] Organization Address City/State/ZIP Co de Phone Number [facility] [address] [place] [address] * CBC W AUTO DIFFERENTIAL (12/29/2018 8:44 AM CDT) WBC 7.6 3.5 - 10.5 10? 3 /uL 12/29/2018 8:57 AM [facility] RBC 4.82 4.30 - 5.70 10? 6 /uL 12/29/2018 8:57 AM [facility] Hemoglobin 15.7 13.5 - 17.5 g/dL 12/29/2018 8:57 AM [facility] Hematocrit 45.3 39.0 - 50.0 % 12/29/2018 8:57 AM [facility] MCV 94.0 81.0 - 97.0 fL 12/29/2018 8:57 AM [facility] MCH 32.6 28.0 - 34.0 pg 12/29/2018 8:57 AM [facility] MCHC 34.7 32.0 - 36.0 g/dL 12/29/2018 8:57 AM [facility] Platelet Count 157 150 - 400 10? 3 /uL 12/29/2018 8:57 AM [facility] RDW-SD 40.9 36.0 - 50.0 fL 12/29/2018 8:57 AM [facility] RDW-CV 11.9 11.2 - 14.8 % 12/29/2018 8:57 AM [facility] MPV 11.0 9.3 - 12.8 fL 12/29/2018 8:57 AM [facility] nRBC Absolute 0.00 0 10? 3 /uL 12/29/2018 8:57 AM [facility] nRBC Auto 0.0 0 /100 WBC 12/29/2018 8:57 AM [facility] Neutrophils % 52.8 35.0 - 70.0 % 12/29/2018 8:57 AM [facility] Lymphocytes % 36.9 19.7 - 55.1 % 12/29/2018 8:57 AM [facility] Monocytes % 8.5 3.0 - 15.0 % 12/29/2018 8:57 AM [facility] Eosinophils % 1.0 0.0 - 6.0 % 12/29/2018 8:57 AM [facility] Basophil % 0.5 0.0 - 1.5 % 12/29/2018 8:57 AM [facility] Neutrophils Absolute 4.0 1.6 - 7.0 10? 3 /uL 12/29/2018 8:57 AM [facility] Lymphocyte Absolute 2.8 0.8 - 2.9 10? 3 /uL 12/29/2018 8:57 AM [facility] Monocytes Absolute 0.65 0.14 - 0.66 10? 3 /uL 12/29/2018 8:57 AM [facility] Eosinophils Absolute 0.08 0.00 - 0.45 10? 3 /uL 12/29/2018 8:57 AM [facility] Basophils Absolute 0.04 0.00 - 0.06 10? 3 /uL 12/29/2018 8:57 AM [facility] Immature Granulocytes % 0.3 0.0 - 1.0 % 12/29/2018 8:57 AM [facility] Blood BLOOD SPECIMEN / Unknown Lab Venipuncture / Unknown 12/29/2018 8:44 AM CDT 12/29/2018 8:53 AM CDT David Escalera MD LAB - HEMATOLOGY ORD ERABLES [facility] [address] [phone] * BASIC METABOLIC PANEL (CALCIUM TOTAL) (12/28/2018 3:47 AM CDT) Pathologist [facility] BUN 9 7 - 26 mg/dL 12/28/2018 4:12 AM [facility] Creatinine 0.8 0.6 - 1.2 mg/dL 12/28/2018 4:12 AM [facility] Sodium 139 136 - 145 mmol/L 12/28/2018 4:12 AM [facility] Potassium 3.8 3.5 - 4.5 mmol/L 12/28/2018 4:12 AM [facility] Chloride 104 98 - 107 mmol/L 12/28/2018 4:12 AM [facility] CO2 22 22 - 29 mmol/L 12/28/2018 4:12 AM [facility] Glucose 87 70 - 115 mg/dL 12/28/2018 4:12 AM [facility] Calcium 9.4 8.4 - 10.2 mg/dL 12/28/2018 4:12 AM [facility] Anion Gap 17 8 - 18 12/28/2018 4:12 AM [facility] BUN/Creatinine Ratio 11 7 - 23 12/28/2018 4:12 AM [facility] Osmolality Calculated 286 270 - 300 mOsm/kg 12/28/2018 4:12 AM [facility] eGFR >60 >60 mL/min/1.7 3 m2 12/28/2018 4:12 AM [facility] Blood BLOOD SPECIMEN / Unknown Lab Venipuncture / Unknown 12/28/2018 3:47 AM CDT 12/28/2018 3:54 AM CDT Brian Lawrence MD LAB - CHEMISTRY [facility] [address] [place] [address] * (ABNORMAL) CBC W/O DIFFERENTIAL (12/28/2018 3:47 AM CDT) Pathologist [facility] WBC 12.0(H) 3.5 - 10.5 10? 3 /uL 12/28/2018 4:00 AM [facility] RBC 4.37 4.30 - 5.70 10? 6 /uL 12/28/2018 4:00 AM [facility] Hemoglobin 14.4 13.5 - 17.5 g/dL 12/28/2018 4:00 AM [facility] Hematocrit 40.8 39.0 - 50.0 % 12/28/2018 4:00 AM [facility] MCV 93.4 81.0 - 97.0 fL 12/28/2018 4:00 AM [facility] MCH 33.0 28.0 - 34.0 pg 12/28/2018 4:00 AM [facility] MCHC 35.3 32.0 - 36.0 g/dL 12/28/2018 4:00 AM [facility] Platelet Count 180 150 - 400 10? 3 /uL 12/28/2018 4:00 AM [facility] RDW-SD 41.1 36.0 - 50.0 fL 12/28/2018 4:00 AM [facility] RDW-CV 11.9 11.2 - 14.8 % 12/28/2018 4:00 AM [facility] MPV 10.5 9.3 - 12.8 fL 12/28/2018 4:00 AM [facility] nRBC Absolute 0.00 0 10? 3 /uL 12/28/2018 4:00 AM [facility] nRBC Auto 0.0 0 /100 WBC 12/28/2018 4:00 AM [facility] Blood BLOOD SPECIMEN / Unknown Lab Venipuncture / Unknown 12/28/2018 3:47 AM CDT 12/28/2018 3:54 AM T Brian Lawrence MD LAB - HEMATOLOGY ORD ERABLES [address] [phone] * EKG 12-LEAD (12/27/2018 10:46 PM CDT) Ventricular Rate 99 BPM [facility] Atrial Rate 99 BPM [facility] P-R Interval 130 ms [facility] QRS Duration ms 86 ms [facility] Q-T Interval ms 352 ms [facility] MUSE QTC Calculation (Bezet) 451 ms [facility] Calculated P [place] 82 degrees [facility] Calculated R [place] 47 degrees [facility] Calculated T [place] 84 degrees [facility] Interpretation EKG NORMAL SINUS RHYTHM WITH SINUS ARRHYTHMIA 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) ABNORMAL ECG WHEN COMPARED WITH ECG OF 21-OCT-2018 13:05, NO SIGNIFICANT CHANGE WAS FOUND Confirmed by Carrie Haider ([id number]), online editor NATALIA HUFF ([id number]) on 01/12/2019 11:48:13 AM [facility] MUSE 12/27/2018 10:4 6 PM CDT 01/12/2019 11:48 AM CDT Ray Radford MD ECG ORDERABLES [facility] MUSE * CT HEAD WO CONTRAST (12/27/2018 8:56 PM CDT) Anatomical Region Laterality Modality Head Computed Tomogra phy 12/27/2018 9:02 PM CDT Impressions 12/28/2018 7:35 AM CDT IMPRESSION: No acute intracranial hemorrhage, mass effect, midline shift. 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 Dictated by Kamila Childs M.D. (residential manager). This report was approved ??by Kamila Childs ?? on 12/28/2018 7:35 AM . I, Dr. WOJCIECH NEIL have personally reviewed and interpreted this examination/study. This report was electronically signed by WOJCIECH NEIL ??on 12/28/2018 7:35 AM . Narrative 12/28/2018 7:[address] HEAD WO CONTRAST EXAMINATION: Computed tomography (CT) of the head without contrast DATE: 12/27/2018 8:56 PM HISTORY: HEADACHE TECHNIQUE: CT of the head was performed without contrast according to standard protocol. COMPARISON: Head CT from 08/07/2018 FINDINGS: No acute intra- or extra-axial fluid [...] is vascular calcification of the carotid siphons. The orbits appear normal. There is mild paranasal sinus disease. Cerumen is noted in the right external auditory canal. The mastoid air cells are clear. There is a unchanged hypodense lesion in the left occipital scalp, likely a sebaceous cyst. Procedure Note Wojciech Neil MD - 12/28/2018 CT HEAD WO CONTRAST EXAMINATION: Computed tomography (CT) of the head without contrast DATE: 12/27/2018 8:56 PM HISTORY: HEADACHE TECHNIQUE: CT of the head was performed without contrast according to standard protocol. COMPARISON: Head CT from 08/07/2018 FINDINGS: No acute intra- or extra-axial fluid [...] is vascular calcification of the carotid siphons. The orbits appear normal. There is mild paranasal sinus disease. Cerumen is noted in the right external auditory canal. The mastoid air cells are clear. There is a unchanged hypodense lesion inthe left occipital scalp, likely a sebaceous cyst. IMPRESSION: No acute intracranial hemorrhage, mass effect, midline shift. 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 Dictated by Kamila Childs M.D. (residential manager). This report was approved by Kamila Childs on 12/28/2018 7:35 AM . IDr. WOJCIECH have personally reviewed and interpreted this examination/study. This report was electronically signed by WOJCIECH NEIL on12/28/2018 7:35 AM . Zulma Quijano MD CT ORDERABLES * DRUG SCREEN TOX URINE PANEL (12/27/2018 5:21 PM CDT) [facility] Amphetamines Screen Urine Negative Negative: < 1000 ng/mL 12/27/2018 6:02 PM [facility] Barbiturates Screen Urine Negative Negative: < 200 ng/mL 12/27/2018 6:02 PM [facility] Benzodiazepine Screen Urine Negative Negative: < 200 ng/mL 12/27/2018 6:02 PM [facility] Opiates Urine Negative Negative: < 300 ng/mL 12/27/2018 6:02 PM [facility] Cocaine Metabolites Urine Negative Negative: < 300 ng/mL 12/27/2018 6:02 PM [facility] Phencyclidine Screen Urine Negative Negative: < 25 ng/ml 12/27/2018 6:02 PM [facility] Cannabinoids Screen Urine Negative Negative: <50 ng/mL 12/27/2018 6:02 PM [facility] Methadone Screen Urine Negative Negative: < 300 ng/mL 12/27/2018 6:02 PM [facility] Urine URINE / Unknown Collection / Unknown 12/27/2018 5:21 PM CDT 12/27/2018 5:26 PM CDT Narrative [facility] - 12/27/2018 6:02 PM CDT The Urine Toxicology Screening Panel does not screen for Propoxyphene, Meprobamate, Carisoprodol, Trazodone, [id number] medications and/or volatiles (Acetone, Isopropanol, Methanol or Ethylene Glycol). Ethanol, Salicylate, Acetaminophen, Tricyclic Antidepressants and several therapeutic drugs may be individually assayed in serum or plasma specimen. Toxicology testing by the [facility] is an aid to medical diagnosis and treatment of patients. No documented chain of custody was maintained. Results are intended to be used for clinical purposes only. ? Zulma Quijano MD LAB - URINE CHEMISTR Y ORDERABLES [facility] [address] [place] [address], [facility] [phone] * (ABNORMAL) URINALYSIS W/MICROSCOPIC NO CULTURE (12/27/2018 5:21 PM CDT) Color UA Straw Straw, Yellow, Colorless 12/27/2018 5:35 PM CDT [facility] Clarity UA Clear Clear, Slt Cloudy 12/27/2018 5:35 PM CDT [facility] Specific [place] UA 1.006 1.005 - 1.030 12/27/2018 5:35 PM CDT [facility] pH UA 6.0 5.0 - 8.0 pH 12/27/2018 5:35 PM CDT [facility] Protein UA Negative Negative mg/dL 12/27/2018 5:35 PM CDT [facility] Glucose UA Negative Negative mg/dL 12/27/2018 5:35 PM CDT [facility] Ketone UA Trace(A) Negative mg/dL 12/27/2018 5:35 PM CDT [facility] Bilirubin UA Negative Negative mg/dL 12/27/2018 5:35 PM CDT [facility] Blood UA Negative Negative 12/27/2018 5:35 PM CDT [facility] Nitrite UA Negative Negative 12/27/2018 5:35 PM CDT [facility] Leukocyte Esterase Negative Negative 12/27/2018 5:35 PM CDT [facility] Urobilinogen UA Negative Negative mg/dL 12/27/2018 5:35 PM CDT [facility] RBC UA 0-2 None Seen, 0-2, 3-5 /HPF 12/27/2018 5:35 PM CDT [facility] WBC UA 0-5 None Seen, 0-5 /HPF 12/27/2018 5:35 PM CDT [facility] Squamous Epithelial Cells UA None Seen None Seen, 0-2 /HPF 12/27/2018 5:35 PM CDT [facility] Urine URINE SPECIMEN OBTAINED BY CLEAN CATCH PROCEDURE / Unknown Collection / Unknown 12/27/2018 5:21 PM CDT 12/27/2018 5:26 PM CDT Zulma Quijano MD LAB - URINALYSIS ORD ERABLES [address] [phone] * (ABNORMAL) LEVETIRACETAM LEVEL (12/27/2018 12:39 PM CDT) Levetiracetam 49.9(H) 10.0 - 40.0 ug/mL 12/30/2018 1:07 PM CDT [facility] ([facility]) Comment: This test was developed and its performance characteristics determined by [facility]. It has not been cleared or approved by the Food and Drug Administration. Blood BLOOD SPECIMEN / Unknown Venipuncture / Unknown 12/27/2018 12:39 PM CDT 12/27/2018 12:39 PM CDT Narrative [facility] ([facility]) - 12/30/2018 1:07 PM CDT Performed at: ??01 - [facility] ??[id number] Battery Repairer: Terence Ramos MD, Phone: ??[phone] Zulma Quijano MD LAB - THERAPEUTIC DR UG MONITORING ORDERABLES [facility] ([facility]) [address] [place] [address] * TSH (12/27/2018 12:39 PM CDT) TSH 1.161 0.350 - 4.940 uIU/mL 12/27/2018 1:23 PM CDT [facility] Blood BLOOD SPECIMEN / Unknown Venipuncture / Unknown 12/27/2018 12:39 PM CDT 12/27/2018 12:39 PM CDT Zulma Quijano MD LAB - CHEMISTRY [facility]SH[facility]EROS Performing Organization Address [facility]/ZIP Co de Phone Number [address] [phone] * (ABNORMAL) VALPROIC ACID LEVEL (12/27/2018 12:39 PM CDT) Pathologist [facility] Valproic Acid Total 34(L) 50 - 100 mcg/mL 12/27/2018 1:23 PM T [facility] Blood BLOOD SPECIMEN / Unknown Venipuncture / Unknown 12/27/2018 12:39 PM CDT 12/27/2018 12:39 PM CDT Zulma Quijano MD LAB - CHEMISTRY MARSHAL MEDEROS Performing Organization Address [facility]/ZIP Co de Phone Number [address] [phone] * (ABNORMAL) COMPREHENSIVE METABOLIC PANEL (12/27/2018 12:39 PM CDT) Pathologist [facility] BUN 12 7 - 26 mg/dL 12/27/2018 1:02 PM [facility] Creatinine 0.9 0.6 - 1.2 mg/dL 12/27/2018 1:02 PM [facility] Sodium 135(L) 136 - 145 mmol/L 12/27/2018 1:02 PM [facility] Potassium 4.0 3.5 - 4.5 mmol/L 12/27/2018 1:02 PM [facility] Chloride 97(L) 98 - 107 mmol/L 12/27/2018 1:02 PM [facility] CO2 26 22 - 29 mmol/L 12/27/2018 1:02 PM [facility] Glucose 102 70 - 115 mg/dL 12/27/2018 1:02 PM [facility] Calcium 10.4(H) 8.4 - 10.2 mg/dL 12/27/2018 1:02 PM [facility] Protein Total 8.4(H) 6.0 - 8.3 g/dL 12/27/2018 1:02 PM [facility] Albumin 5.0 3.4 - 5.0 g/dL 12/27/2018 1:02 PM [facility] Bilirubin Total 0.6 0.2 - 1.2 mg/dL 12/27/2018 1:02 PM [facility] Alkaline Phosphatase 65 40 - 150 Units/L 12/27/2018 1:02 PM [facility] ALT 12 0 - 55 Units/L 12/27/2018 1:02 PM [facility] AST 27 5 - 34 Units/L 12/27/2018 1:02 PM [facility] Anion Gap 16 8 - 18 12/27/2018 1:02 PM [facility] BUN/Creatinine Ratio 13 7 - 23 12/27/2018 1:02 PM [facility] Osmolality Calculated 280 270 - 300 mOsm/kg 12/27/2018 1:02 PM [facility] Albumin/Globulin Ratio 1.5 1.1 - 2.3 12/27/2018 1:02 PM [facility] eGFR >60 >60 mL/min/1.7 3 m2 12/27/2018 1:02 PM [facility] Blood BLOOD SPECIMEN / Unknown Venipuncture / Unknown 12/27/2018 12:39 PM CDT 12/27/2018 12:39 PM T Zulma Quijano MD LAB - CHEMISTRY MARSHAL MEDEROS [facility] [address] [phone] * (ABNORMAL) CBC W AUTO DIFFERENTIAL (12/27/2018 12:39 PM CDT) WBC 15.1(H) 3.5 - 10.5 10? 3 /uL 12/27/2018 12:44 PM [facility] RBC 4.87 4.30 - 5.70 10? 6 /uL 12/27/2018 12:44 PM [facility] Hemoglobin 16.4 13.5 - 17.5 g/dL 12/27/2018 12:44 PM [facility] Hematocrit 45.6 39.0 - 50.0 % 12/27/2018 12:44 PM [facility] MCV 93.6 81.0 - 97.0 fL 12/27/2018 12:44 PM [facility] MCH 33.7 28.0 - 34.0 pg 12/27/2018 12:44 PM [facility] MCHC 36.0 32.0 - 36.0 g/dL 12/27/2018 12:44 PM [facility] Platelet Count 198 150 - 400 10? 3 /uL 12/27/2018 12:44 PM [facility] RDW-SD 41.1 36.0 - 50.0 fL 12/27/2018 12:44 PM [facility] RDW-CV 11.9 11.2 - 14.8 % 12/27/2018 12:44 PM [facility] MPV 10.0 9.3 - 12.8 fL 12/27/2018 12:44 PM [facility] nRBC Absolute 0.00 0 10? 3 /uL 12/27/2018 12:44 PM [facility] nRBC Auto 0.0 0 /100 WBC 12/27/2018 12:44 PM [facility] Neutrophils % 75.9(H) 35.0 - 70.0 % 12/27/2018 12:44 PM [facility] Lymphocytes % 14.4(L) 19.7 - 55.1 % 12/27/2018 12:44 PM [facility] Monocytes % 8.6 3.0 - 15.0 % 12/27/2018 12:44 PM [facility] Eosinophils % 0.5 0.0 - 6.0 % 12/27/2018 12:44 PM [facility] Basophil % 0.3 0.0 - 1.5 % 12/27/2018 12:44 PM [facility] Neutrophils Absolute 11.4(H) 1.6 - 7.0 10? 3 /uL 12/27/2018 12:44 PM [facility] Lymphocyte Absolute 2.2 0.8 - 2.9 10? 3 /uL 12/27/2018 12:44 PM T [facility] Monocytes Absolute 1.30(H) 0.14 - 0.66 10? 3 /uL 12/27/2018 12:44 PM CDT [facility] Eosinophils Absolute 0.07 0.00 - 0.45 10? 3 /uL 12/27/2018 12:44 PM T [facility] Basophils Absolute 0.04 0.00 - 0.06 10? 3 /uL 12/27/2018 12:44 PM T [facility] Immature Granulocytes % 0.3 0.0 - 1.0 % 12/27/2018 12:44 PM [facility] Blood BLOOD SPECIMEN / Unknown Venipuncture / Unknown 12/27/2018 12:39 PM CDT 12/27/2018 12:39 PM CDT Zulma Quijano MD LAB - HEMATOLOGY ORD ERABLES Performing Organization Address City/State/[facility] Co de Phone Number [facility] [address] [place] [address] documented in this encounter Visit Diagnoses Diagnosis Seizure (HCC)- Primary Other convulsions Headache, unspecified headache type Seizure (HCC) Other convulsions Headache, unspecified headache type documented in this encounter Administered Medications Inactive Administered Medications - up to 3 most recent administrations Medication Order MAR Action Action Date Dose Rate Site 0.9% NaCl injection 1-10 mL 1-10 mL, Intracatheter, PRN, Other, peripheral line flush, Starting on Tue12/27/18 at 1651, Until Tue12/29/18 at 2055, Flush peripheral IV catheter with 1-10 mL of normal saline before and after medications and prn to clear blood from the line or to verify patency. 0.9% NaCl injection 3 mL 3 mL, Intracatheter, EVERY 8 HOURS, 1095 doses, First dose on Tue12/27/18 at 1730, Last dose on Tue12/27/19 at 0600, Flush peripheral IV catheter with 3 mL of normal saline every 8 hours. $ Given 12/29/2018 3:43 PM CDT 3 mL $ Given 12/29/2018 6:14 AM CDT 3 mL Ri ght Arm $ Given 12/28/2018 9:16 PM CDT 3 mL 0.9% NaCl IV Bolus 1,000 mL, at 3,000 mL/hr, Administer over 20 Minutes, NOW, 1 dose, On Tue12/27/18 at 1215 $ Bolus New Bag 12/27/2018 12:30 PM CDT 1,000 mL 3000 mL/hr amLODIPine (NORVASC) tablet 5 mg 5 mg, Oral, DAILY, 365 doses, First dose on Tue12/27/18 at 1730, Last dose on Tue12/26/19 at 0900 $ Given 12/29/2018 8:25 AM CDT 5 mg $ Given 12/28/2018 8:43 AM CDT 5 mg $ Given 12/27/2018 5:57 PM CDT 5 mg aspirin (ASPIRIN) chew tablet 81 mg 81 mg, Oral, DAILY, 365 doses, First dose on Tue12/27/18 at 1730, Last dose on Tue12/26/19 at 0900 $ Given 12/29/2018 8:25 AM CDT 81 mg $ Given 12/28/2018 8:43 AM CDT 81 mg $ Given 12/27/2018 5:57 PM CDT 81 mg atorvastatin (LIPITOR) tablet 40 mg 40 mg, Oral, AT BEDTIME, First dose on Tue12/27/18 at 2100, Until Discontinued $ Given 12/28/2018 9:13 PM CDT 40 mg $ Given 12/27/2018 9:03 PM CDT [address] (DEPAKOTE) tablet 500 mg 500 mg, Oral, 2 TIMES DAILY, 730 doses, First dose on Tue12/27/18 at 2100, Last dose on Tue12/27/19 at 0900, Do not crush, chew, or cut in half. $ Given 12/29/2018 8:25 AM CDT 500 mg $ Given 12/28/2018 9:15 PM CDT 500 mg $ Given 12/28/2018 8:44 AM CDT 500 mg eslicarbazepine (APTIOM) tablet 800 mg 800 mg, Oral, AT BEDTIME, 14 doses, First dose on Tue12/27/18 at 2100, Last dose on Tue01/09/19 at 2100, PATIENT SUPPLIED WORKFLOW, Drug name: Aptiom $ Given 12/28/2018 9:18 PM CDT 800 mg folic acid (FOLVITE) tablet 1 mg 1 mg, Oral, DAILY, 365 doses, First dose on Tue12/27/18 at 1730, Last dose on Tue12/26/19 at 0900 $ Given 12/29/2018 8:25 AM CDT 1 mg $ Given 12/28/2018 8:43 AM CDT 1 mg $ Given 12/27/2018 5:57 PM CDT 1 mg haloperidol lactate (HALDOL) injection 5 mg 5 mg, Intramuscular, ONCE, 1 dose, On Tue12/27/18 at 2200 $ Given 12/27/2018 9:48 PM CDT 5 mg Right Arm haloperidol lactate (HALDOL) injection ADS Med 1 dose, Starting on Tue12/27/18 at 2149, Until Tue12/27/18 at 2148, Created by alfredo lymanide heparin injection 5,000 Units 5,000 Units, Subcutaneous, EVERY 8 HOURS, 1095 doses, First dose on Tue12/27/18 at 1730, Last dose on Tue12/27/19 at 0600 $ Given 12/29/2018 3:47 PM CDT 5,000 Units Left Arm $ Given 12/29/2018 6:14 AM CDT 5,000 Units A bd Left Upper Quadrant $ Given 12/28/2018 9:15 PM CDT 5,000 Units A bd Left Lower Quadrant levETIRAcetam (KEPPRA) tablet 2,000 mg 2,000 mg, Oral, 2 TIMES DAILY, 730 doses, First dose on Tue12/27/18 at 2100, Last dose on Tue12/27/19 at 0900, Do not crush or chew because of TASTE only. $ Given 12/29/2018 8:25 AM CDT 2,000 mg $ Given 12/28/2018 9:15 PM CDT 2,000 mg $ Given 12/28/2018 8:43 AM CDT 2,000 mg LORazepam (ATIVAN) injection 2 mg 2 mg, Intravenous, ONCE, 1 dose, On Tue12/27/18 at 2345 $ Given 12/27/2018 11:24 PM CDT 2 mg LORazepam (ATIVAN) injection ADS Med 1 dose, Starting on Tue12/27/18 at 2325, Until Tue12/27/18 at 2324, Created by cabinet override MINERIN cream Topical, 2 TIMES DAILY, First dose on Tue12/28/18 at 1100, Until Discontinued $ Given 12/29/2018 12:15 PM CDT $ Given 12/28/2018 9:16 PM CDT $ Given 12/28/2018 11:51 AM CDT sodium chloride tablet 1 g 1 g, Oral, DAILY, First dose on Tue12/27/18 at 1815, Until Discontinued $ Given 12/29/2018 8:25 AM CDT 1 g $ Given 12/28/2018 8:43 AM CDT 1 g $ Given 12/27/2018 6:04 PM CDT 1 g tamsulosin (FLOMAX) capsule 0.4 mg 0.4 mg, Oral, DAILY, First dose on Tue12/27/18 at 1730, Until Discontinued, At the same time every day after a meal. Do not crush, chew $ Given 12/29/2018 8:25 AM CDT 0.4 mg $ Given 12/28/2018 8:43 AM CDT 0.4 mg $ Given 12/27/2018 5:57 PM CDT 0.4 mg documented in this encounter Active and Recently Administered Medications Times are shown in CDT. Scheduled Medication Order 12/27/2018 12/28/2018 12/29/2018 0.9% NaCl injection 3 mL(Linked Group 1) 3 mL, Intracatheter, EVERY 8 HOURS, 1095 doses, First dose on Tue12/27/18 at 1730, Last dose on Tue12/27/19 at 0600, Flush peripheral IV catheter with 3 mL of normal saline every 8 hours. 1803 ($ Given - Provider: Meredith Reed RN)2254 (Not Administered - Provider: Rachel Colbert, ALFRED - Reason: Refused-Patient) 0701 (Not Administered - Provider: Rachel Colbert, RN - Reason: Patient sleeping)1405 ($ Given - Provider: Zulma Onofre, ALFRED)2116 ($ Given - Provider: Meera Cherry, ALFRED) 0614 ($ Given - Provider: Meera Cherry, ALFRED)1543 ($ Given - Provider: Henri Jay RN) 0.9% NaCl IV Bolus (COMPLETED) 1,000 mL, at 3,000 mL/hr, Administer over 20 Minutes, NOW, 1 dose, On Tue12/27/18 at 1215 1230 ($ Bolus New Bag - Provider: Nic Zhu, ALFRED) amLODIPine (NORVASC) tablet 5 mg 5 mg, Oral, DAILY, 365 doses, First dose on Tue12/27/18 at 1730, Last dose on Tue12/26/19 at 0900 1757 ($ Given - Provider: Meredith Reed, ALFRED) 0843 ($ Given - Provider: Zulma Onofre, ALFRED) 0825 ($ Given - Provider: Henri Jay, RN) aspirin (ASPIRIN) chew tablet 81 mg 81 mg, Oral, DAILY, 365 doses, First dose on Tue12/27/18 at 1730, Last dose on Tue12/26/19 at 0900 1757 ($ Given - Provider: Meredith Reed RN) 0843 ($ Given - Provider: Zulma Onofre, ALFRED) 0825 ($ Given - Provider: Henri Jay, ALFRED) atorvastatin (LIPITOR) tablet 40 mg 40 mg, Oral, AT BEDTIME, First dose on Tue12/27/18 at 2100, Until Discontinued 2102 ($ Given - Provider: Meredith Reed RN) 2112 ($ Given - Provider: Meera Cherry RN)2114 (Not Administered - Provider: Meera Cherry RN - Reason: See Comments - Comment: duplicate) divalproex DR (DEPAKOTE) tablet 500 mg 500 mg, Oral, 2 TIMES DAILY, 730 doses, First dose on Tue12/27/18 at 2100, Last dose on Tue12/27/19 at 0900, Do not crush, chew, or cut in half. 2102 ($ Given - Provider: Meredith Reed RN) 0844 ($ Given - Provider: Zulma Onofre, ALFRED)2114 ($ Given - Provider: Meera Cherry RN) 08 ($ Given - Provider: Henri Jay, ALFRED) eslicarbazepine (APTIOM) tablet 800 mg 800 mg, Oral, AT BEDTIME, 14 doses, First dose on Tue12/27/18 at 2100, Last dose on Tue01/09/19 at 2100, PATIENT SUPPLIED WORKFLOW, Drug name: Aptiom 2320 (Not Administered - Provider: Rachel Colbert RN - Reason: Refused-Patient) 2118 ($ Given - Provider: Meera Cherry, ALFRED) folic acid (FOLVITE) tablet 1 mg 1 mg, Oral, DAILY, 365 doses, First dose on Tue12/27/18 at 1730, Last dose on Tue12/26/19 at 0900 1757 ($ Given - Provider: Meredith Reed RN) 0843 ($ Given - Provider: Zulma Onofre, ALFRED) 0825 ($ Given - Provider: Henri Jay, ALFRED) haloperidol lactate (HALDOL) injection 5 mg (COMPLETED) 5 mg, Intramuscular, ONCE, 1 dose, On Tue12/27/18 at 2200 2148 ($ Given - Provider: Rachel Colbert RN) heparin injection 5,000 Units 5,000 Units, Subcutaneous, EVERY 8 HOURS, 1095 doses, First dose on Tue12/27/18 at 1730, Last dose on Tue12/27/19 at 0600 1758 ($ Given - Provider: Meredith Reed RN)2254 (Not Administered - Provider: Rachel Colbert RN - Reason: Refused-Patient) 0701 (Not Administered - Provider: Rachel Colbert RN - Reason: Refused-Patient)1405 ($ Given - Provider: Zulma Onofre, ALFRED)2115 ($ Given - Provider: Meera Cherry, ALFRED) 0614 ($ Given - Provider: Meera Cherry, ALFRED)1547 ($ Given - Provider: Henri Jay, ALFRED) levETIRAcetam (KEPPRA) tablet 2,000 mg 2,000 mg, Oral, 2 TIMES DAILY, 730 doses, First dose on Tue12/27/18 at 2100, Last dose on Tue12/27/19 at 0900, Do not crush or chew because of TASTE only. 2103 ($ Given - Provider: Meredith Reed RN) 0843 ($ Given - Provider: Zulma Onofre, ALFRED)2115 ($ Given - Provider: Meera Cherry, ALFRED) 0825 ($ Given - Provider: Henri Jay, ALFRED) LORazepam (ATIVAN) injection 2 mg (COMPLETED) 2 mg, Intravenous, ONCE, 1 dose, On Tue12/27/18 at 2345 2324 ($ Given - Provider: Rachel Colbert, ALFRED) MINERIN cream Topical, 2 TIMES DAILY, First dose on Tue12/28/18 at 1100, Until Discontinued 1151 ($ Given - Provider: Zulma Onofre, ALFRED)2116 ($ Given - Provider: Meera Cherry RN) 1215 ($ Given - Provider: Henri Jay, ALFRED) sodium chloride tablet 1 g 1 g, Oral, DAILY, First dose on Tue12/27/18 at 1815, Until Discontinued 1804 ($ Given - Provider: Meredith Reed RN) 0843 ($ Given - Provider: Zulma Onofre, ALFRED) 0825 ($ Given - Provider: Henri Jay, ALFRED) tamsulosin (FLOMAX) capsule 0.4 mg 0.4 mg, Oral, DAILY, First dose on Tue12/27/18 at 1730, Until Discontinued, At the same time every day after a meal. Do not crush, chew 1757 ($ Given - Provider: Meredith Reed, ALFRED) 0843 ($ Given - Provider: Zulma Onofre, ALFRED) 0825 ($ Given - Provider: Henri Jay, ALFRED) PRN Medication Order 12/27/2018 12/28/2018 12/29/2018 0.9% NaCl injection 1-10 mL(Linked Group 1) 1-10 mL, Intracatheter, PRN, Other, peripheral line flush, Starting on Tue12/27/18 at 1651, Until Tue12/29/18 at 2055, Flush peripheral IV catheter with 1-10 mL of normal saline before and after medications and prn to clear blood from the line or to verify patency. Linked Groups Order Group 1: SALINE LOCK, INSERT AND MAINTAIN (CANCELED) Routine, CONTINUOUS, Starting on Tue12/27/18 at 1700, Until Specified, New collection And 0.9% NaCl injection 3 mLJump to med 3 mL, Intracatheter, EVERY 8 HOURS, 1095 doses, First dose on Tue12/27/18 at 1730, Last dose on Marian 12/27/19 at 0600, Flush peripheral IV catheter with 3 mL of normal saline every 8 hours. And 0.9% NaCl injection 1-10 mLJump to med 1-10 mL, Intracatheter, PRN, Other, peripheral line flush, Starting on Tue12/27/18 at 1651, Until Tue12/29/18 at 2055, Flush peripheral IV catheter with 1-10 mL of normal saline before and after medications and prn to clear blood from the line or to verify patency. documented in this encounter Care Teams Director Advanced Relationship Specialty Start Date End Date Misael Maradiaga DO PCP - General 10/03/17 09/15/20 Elizabeth Sullivan, RN Copy Room Technician 10/14/17 documented as of this encounter
--- OUTSIDE RECORDS SUMMARY | 2024-06-08 05:43 | XMS_ITS | Encounter Summary ---
Author Organization [facility] Health Address [address] [place] [address] Care Team Providers Care Senior Financial Reporting Accountant Name Role Phone Misael Maradiagajamel Primary Care Provider Elizabeth Sullivan RN Unavailable Reason for Visit * Reason Comments Seizure Encounter Details Date Type Department Care Team (Late st Contact Info) Description 02/15/2019 10:00 AM CDT Office Visit [facility] Neurology [address] [place] [address] Ck Feliciano MD [address] [place] [phone] Localization-related (focal) (partial) idiopathic epilepsy and epileptic [...] Sign Reading Time Taken Comments Blood Pressure 133/87 02/15/2019 10:21 AM CDT Pulse 92 02/15/2019 10:21 AM CDT Temperature - - Respiratory Rate - - Oxygen Saturation 98% 02/15/2019 10:21 AM CDT Inhaled Oxygen Concentration - - Weight 57.6 kg (127 lb) 02/15/2019 10:21 AM CDT Height 180.3 cm (5' 11 ) 02/15/2019 10:21 AM CDT Body Mass Index 17.71 02/15/2019 10:21 AM CDT documented in this encounter Functional [...] No 01/15/2019 documented as of this encounter Progress Notes * Ck Feliciano MD - 02/15/2019 10:59 AM CDT Epilepsy Clinic Note PCP Misael Maradiaga Date of Encounter: 02/15/2019 Chief Complaint: Seizures Gait difficulty AGE OF ONSET 50-year-old SEMIOLOGY - Aura [...] Date of last seizure 1. Unclear 2. 12/2018 Action Plan - MEDICATION Name Pill Size Frequency AED Level Start Levetiractam 1000 mg tab 2 - [address] 500 mg tab 1 - 1 Vimpat 50 tab 1 - 1 Clonazepam 0.5 mg [...] focal slowing, suggestive of underline structure/functional abnormalities. 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 Age of onset [id number]. Clinical semiology described as (Aura) tingling sensation [...] visit. Provided Vimpat 50 mg BID instead. Medicationwell tolerated. No breakthrough event. ROS: General Negative except per HPI Eyes [...] mg by mouth once daily ??? divalproex ER 24hr (DEPAKOTE ER) 500 MG tablet Take 500 mg by mouth once daily ??? folic acid (FOLVITE) 1 MG tablet Take 1 tablet by mouth once daily ??? ibuprofen (MOTRIN) 600 MG tablet ??? lacosamide (VIMPAT) 50 MG tablet Take 1 tablet by mouth 2 times daily ??? tamsulosin [...] file Social History Narrative Physical Exam: Vitals: 02/15/19 1021 BP: 133/87 Pulse: 92 SpO2: 98% Weight: 127 lb (57.6 kg) Height: 5' 11 (1.803 m) General Awake, alert, appropriate HEENT: Head normocephalic and atraumatic Extremities: No cyanosis or edema noted Cortical Function: MS: Awake, Alert, Follows Commands Oriented to Person, Place and Time Language: Fluent, Coherent, Repetition Intact Cranial Nerves: Pupils 5 mm BE, Full EOM, No ptosis or nystagmus Facial sensation intact bilaterally to LT; No facial palsy Palate symmetric; Normal tongue protrusion Motor: Abnormal Movements: None Bulk: Normal Tone: Normal Strength: RUE 5/5 LUE 5/5 RLE 5/5 LLE 5/5 DTR: Bi Tri BR Pat R 3 3 4 4 L 3 3 4 4 Sensory: Intact to light touch, bilaterally Cerebellar: FNF intact bilaterally Gait: Antalgic gait Assessment/Plan: # Epilepsy - Seizures started at the age of 50-year-old. Occurred after his ischemic stroke. Clinical semiology described as (Aura) tingling sensation over the right side, (Ictus #1) brief dyscognitive events, and (Ictus #2) generalized convulsions, tongue bites. - Initially was taking Levetiracetam 1500 mg [...] visit. Provided Vimpat 50 mg BID instead. Medicationwell tolerated. No breakthrough event. Levetiractam 1000 mg tab 2 - [address] 500 mg tab 1 - 1 Vimpat 50 mg tab 1 - 1 Clonazepam 0.5 mg PRN to prevent clustering #Cerebrovascular disease Ischemic stroke, with resulted left-sided visual difficulty. F/U with PCP. #Vitamin B Deficiency Currently taking vitamin B supplement and Folic acid. Replacement reordered. B12 1000 mcg PO q Day and Folic 1 mg PO q Day prescribed. B1 100 mg q day prescribed. #Gait instability/Cervical myelopathy - Gait appeared to be impaired from cerebellar atrophy, with some component of C-spinal stenosis - Follow up MRI C-spine every 1 to 2 years, or sooner if clinically deteriorated. Last imaged 01/2018. I personally spent 25 minutes with the patient of which greater than 15 minutes were spent counseling the patient on diagnosis, treatment option, safety, and therapeutic planning. Ck Feliciano MD documented in this encounter Plan of Treatment Upcoming Encounters Date Type Department Care Team (Late st Contact Info) Description 12/05/2024 1:00 PM CDT Office Visit [facility] - Neurology [address] [place] [address], [facility] [place] [address] Sean Raymundo DO [address] [place] [address] [place] [address] documented as of this encounter Visit Diagnoses Diagnosis 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, intractable, without status epilepticus (HCC)- Primary documented in this encounter Care Teams Senior Financial Reporting Accountant Relationship Specialty Start Date End Date Misael Maradiaga DO PCP - General 10/03/17 09/15/20 Elizabeth Sullivan, RN Hearing Aid Dispenser 10/14/17 documented as of this encounter
--- OUTSIDE RECORDS SUMMARY | 2024-06-08 05:43 | XMS_ITS | Encounter Summary ---
Author Organization [facility] Health Address [address] [place] [address] Care Team Providers Care Cardiac Nurse Specialist Name Role Phone Misael Maradiaga DO Primary Care Provider Elizabeth Sullivan RN Unavailable [phone] Encounter Details Date Type Department Care Team (Late st Contact Info) Description 12/27/2018 10:00 AM CDT Office Visit [facility] Neurology [address] [place] [address] Jenna Ivy, CORRESPONDENT-TUTORING ASSISTANT [address] [place] [phone] Partial 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, intractable, without status epilepticus (HCC) (Primary Dx); Gait instability; Vitamin B12 deficiency Social History Tobacco Use Types Packs/Day [...] Sign Reading Time Taken Comments Blood Pressure 137/88 12/27/2018 10:03 AM CDT Pulse 105 12/27/2018 10:03 AM CDT Temperature 37.2 ??C (99 ??F) 12/27/2018 10:37 AM CDT Respiratory Rate - - Oxygen Saturation - - Inhaled Oxygen Concentration - - Weight 49.9 kg (110 lb) 12/27/2018 10:03 AM CDT Height 180.3 cm (5' 11 ) 12/27/2018 10:03 AM CDT Body Mass Index 15.34 12/27/2018 10:03 AM CDT documented in this encounter Functional [...] this encounter Progress Notes * Jenna Ivy, CORRESPONDENT-TUTORING ASSISTANT - 12/27/2018 9:57 AM CDT Epilepsy Clinic Note Date of Encounter: 12/27/2018 HPI- Patient was brought in to clinic for follow up for seizures by sister and brother. This is an established pt of Dr. Feliciano last seen in clinic on 10/26/2018. Patient is lethargic, agitated and complains severe headache 10/10 since last night. Sister reports that he was seen at [facility] ER yesterday for seizure and was told his sz medications are too strong for him and needed adjustment. She reports that she thought that pt will be seen by Dr. Feliciano and did not know will be seen by PRIMING POWDER PREMIX BLENDER. She also reports that pt is non compliant taking Sz medications. He did not take it last night. When his brother went to pt's home this morning he was found confused and knocked out . Brother gave all seizures medications this morning. Patient is on Levetiractam 2000 mg BID, Depakote DR 500 mg BID and Oxcarbazepine 400 mg BID. Physical Exam: Vitals: 12/27/18 1003 12/27/18 1036 12/27/18 1037 BP: 137/88 Pulse: 105 Temp: 98.6 ??F (37 ??C) 99 ??F (37.2 ??C) Weight: 110 lb (49.9 kg) Height: 5' 11 (1.803 m) General : confused, agitated HEENT: Head normocephalic and atraumatic Extremities: No cyanosis or edema noted Cortical Function: MS: Awake, Alert, Follows some Commands Oriented to Person, Place Language: Fluent, [...] 5/5 DTR: Bi Tri BR Pat Ach R 2 2 2 2 2 L 2 2 2 2 2 Sensory: EARNEST Cerebellar: EARNEST Gait: Deferred, in W/C Assessment: Seizures Plan: Patient is constantly getting up from wheelchair and wants to lay down, c/o feeling cold, and severe headache. 911 was called. Vitals signs reviewed and stable. Patient was send to [facility] ER for further evaluation of severe headache and cognitive changes to rule our acute abnormality. Advised sister to call clinic after patient gets discharged from hospital to schedule follow up with Dr. Yepez. KAILASH Tucker, PRIMING POWDER PREMIX BLENDER-C Department of Neurology documented in this encounter Plan of Treatment Upcoming Encounters Date Type Department Care Team (Late st Contact Info) Description 12/05/2024 1:00 PM CDT Office Visit [facility] - Neurology [address] [place] [address], [facility] [place] [phone] Sean Raymundo DO [address] [place] [address] [place] [phone] documented as of this encounter Visit Diagnoses Diagnosis Partial 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, intractable, without status epilepticus (HCC)- Primary Gait instability Abnormality of gait Vitamin B12 deficiency Other B-complex deficiencies documented in this encounter Care Teams Cardiac Nurse Specialist Relationship Specialty Start Date End Date Misael Maradiaga DO PCP - General 10/03/17 09/15/20 Elizabeth Sullivan, RN Electrical Linesworker 10/14/17 documented as of this encounter
--- OUTSIDE RECORDS SUMMARY | 2024-06-08 05:43 | XMS_ITS | Encounter Summary ---
Author Organization [facility] Health Address [address] [facility] [place] [address] Care Team Providers Care Children'S Entertainer Name Role Phone Misael Maradiaga DO Primary Care Provider Elizabeth Sullivan RN Unavailable [phone] Encounter Details Date Type Department Care Team (Late st Contact Info) Description 01/31/2019 Orders Only [facility] Neurology [address] [place] [address] Ck Feliciano MD [address] [place] [phone] Social History Tobacco Use Types Packs/Day Years [...] Progress Notes * Ck Feliciano MD - 01/31/2019 2:12 PM CDT Initiated 3rd AED. Vimpat 50 mg BID ordered. documented in this encounter Plan of Treatment Upcoming Encounters Date Type Department Care Team (Late st Contact Info) Description 12/05/2024 1:00 PM CDT Office Visit [facility] - Neurology [address] [place] [address], [facility] [place] [phone] Sean Raymundo DO [address] [place] [phone] documented as of this encounter Visit Diagnoses Not on filedocumented in this encounter Care Teams Children'S Entertainer Relationship Specialty Start Date End Date Misael Maradiaga DO PCP - General 10/03/17 09/15/20 Elizabeth Sullivan, RN Mixed Crop Farmer 10/14/17 documented as of this encounter
--- OUTSIDE RECORDS SUMMARY | 2024-06-08 05:43 | XMS_ITS | Encounter Summary ---
Author Organization [facility] Health Address [address] [facility] [place] [address] Care Team Providers Care Printed Circuit Board Pcb Designer Name Role Phone Misael Maradiaga DO Primary Care Provider Elizabeth Sullivan RN Unavailable [phone] Reason for Visit * Reason Onset Date Comments Medication Clarification 12/04/2018 Encounter Details Date Type Department Care Team (Late st Contact Info) Description 12/04/2018 Telephone [facility] [address] [place] [address] Ck Feliciano MD [address] [place] [phone] Medication Clarification Social History Tobacco Use Types [...] * Telephone Encounter - Naa Mosley - 12/04/2018 2:[address] Feliciano, ?? From last Patient Instruction 1) Levetiracetam 1000 mg tablets, take 2 tablets twice a day 2) Depakote DR 500 mg tablets, take 1 tablets twice a day 3) Oxcarbazepine 300 mg tablets, take 1-jwp-n-half tablet twice a day 4) Clonazepam 0.5 mg, take tablet as needed after a seizure if a seizure occur to prevent seizure cluster ?? - CAN STOP GABAPENTIN (Routing comment) ?? Informed Adriane, pt's sister of current medication list noted above. Naa Mosley documented in this encounter Plan of Treatment Upcoming Encounters Date Type Department Care Team (Late st Contact Info) Description 12/05/2024 1:00 PM CDT Office Visit [facility] - Neurology [address] [place] [address], [place] [phone] Sean Raymundo DO [address] [place] [address] [place] [phone] documented as of this encounter Visit Diagnoses Not on filedocumented in this encounter Care Teams Printed Circuit Board Pcb Designer Relationship Specialty Start Date End Date Misael Maradiaga DO PCP - General 10/03/17 09/15/20 Elizabeth Sullivan, ALFRED Personal Coach 10/14/17 documented as of this encounter
--- OUTSIDE RECORDS SUMMARY | 2024-06-08 05:43 | XMS_ITS | Encounter Summary ---
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, intractable, without status epilepticus (HCC) (Primary Dx); Medication monitoring encounter; Vitamin B12 deficiency Social History Tobacco Use [...] Sign Reading Time Taken Comments Blood Pressure 100/75 05/21/2019 12:48 PM SALES DEVELOPMENT SPECIALIST Pulse 100 05/21/2019 12:48 PM SALES DEVELOPMENT SPECIALIST Temperature - - Respiratory Rate - - Oxygen Saturation - - Inhaled Oxygen Concentration - - Weight 57.6 kg (127 lb) 05/21/2019 12:48 PM SALES DEVELOPMENT SPECIALIST Height 180.3 cm (5' 11 ) 05/21/2019 12:48 PM SALES DEVELOPMENT SPECIALIST Body Mass Index 17.71 05/21/2019 12:48 PM SALES DEVELOPMENT SPECIALIST documented in this encounter Functional Status [...] this encounter Progress Notes * Jenna Ivy, CALL CENTER SUPERVISOR-FLEXIBLE BABYSITTER - 05/21/2019 12:58 PM CST Epilepsy Clinic Note PCP Misael Maradiaga DO Date of Encounter: 05/21/2019 KAMILLA: 02/15/[address] Feliciano Chief Complaint: Seizures- hospital follow up AGE OF ONSET 50-year-old SEMIOLOGY [...] of last seizure 1. Unclear 2. 05/09/2019 Action Plan - MEDICATION Name Dose Frequency AED Level Start Levetiractam [address] 750 mg BID Vimpat 200 mg BID Clonazepam 0.5 mg PRN COMPLIANCE Good TREATMENT [...] inverted papilloma or other nonaggressive sinus lesion. CLASSIFICATION: Partial onset epilepsy LABORATORY RESULTS 05/16/2019 CBC: WBC 7.2, Plt 177 BMP: BUN 16, Cr 0.8 LFT: - VITAMIN D: - HPI: - 59-year-old man with PMH includes stroke, post-stroke epilepsy, cervical arthritis, B12 deficiency, and alcohol dependence resolved 2016. Patient is here for hospital d/c follow up accompanied with sister and brother. He is an established patient of Dr. Feliciano. When seen last by Dr. Feliciano he was on Keppra 2000 mg BID, Depakote DR 500 gm BID and Vimpat 50 mg BID was added. He is on Clonazepam 0.5 mg PRN for seizures. Seizures semiology as described above. Patient was living at SNF for past few months, per sister half-way staff missed to give sz medsthat caused him breakthrough seizures on 05/02/19 and was taken to local hospital and then was transferred to [facility] on 05/09/2019. See [facility] notes for more details. Patient had 6 seizures back to back on same day. Patient had vEEG done that showed as above and MRI brain as above. Patient was discharged on keppra 2000 mg BID, Depakote Dr 750 mg BID and Vimpt 200 mg BID. Patient lives at different alf ([facility]) and sister is in process of moving him back to previous SNF ([facility]) due to better rehab at there. Denies any seizures since hospital d/c on 05/16/19. Sister reports that pt does have visual and sensory hallucinations. He is on Quetiapine 100 mg QD for dementia. Sister reports she feels like pt quincy too many and higher dose of sz meds and wants to know if they can be decreased. ROS: General Negative except per HPI Eyes [...] Take 1 tablet by mouth once daily (Patient not taking: Reported on 05/21/2019) No current facility-administered medications for this visit. [...] file Gets together: Not on file Attends quaker service: Not on file Active member of [...] no Marijuana usage No Physical Exam: Vitals: 05/21/19 1248 BP: 100/75 Pulse: 100 Weight: 127 lb (57.6 kg) Height: 5' [...] - Ronda is seizures free since hospital 05/16/19, Continue Keppra 2000 mg BID, Depakote DR 750 mg BID and Vimpat 200 mg BID. Continue Clonazepam 0.5 mg PRN to prevent clustering seizures. - Continue care at SNF. - I advised sister that patient should be on same dose of sz meds as he was discharged at, as thereis a risk of breakthrough seizures if we decrease the dose. Will check AED levels. Further care anddose adjustment of AEDs deferred to pt's primary neurologist Dr. Feliciano. Please follow the seizures precautions - be [...] due precautions are not practiced I spent 40 minutes in the evaluation of the patient of which more than 50 % of the time was spent in counseling and co-ordination of care. Follow up in [address] Feliciano. Jenna Ivy, MSN, PRICING CLERK-C Department of Neurology S DEVELOPMENT SPECIALIST documented in this encounter Plan of Treatment Upcoming Encounters Date Type Department Care Team (Late st Contact Info) Description 12/05/2024 1:00 PM CDT Office Visit [facility] - Neurology [address] [place] [address], [place] [address] Sean Raymundo, DO [address] [place] [address] [place] [address] documented as of this encounter Results * LACOSAMIDE (05/21/2019 1:56 PM SALES DEVELOPMENT SPECIALIST) Lacosamide 6.5 5.0 - 10.0 ug/mL 05/23/2019 12:16 PM SALES DEVELOPMENT SPECIALIST [employer] ([facility]) Comment: INTERPRETIVE INFORMATION: Lacosamide, Serum or Plasma Therapeutic Range: Not well established. Suggested range 5.0 - 10.0 ug/mL Dose-related range (values at doses of 200-600 mg/day): 2.5 - 18.0 ug/mL Toxic: Not well established. Adverse effects may include dizziness, fatigue, nausea, vomiting, blurred vision and tremor. Test developed and characteristics determined by [employer]. See Compliance Statement B: [employer]/CS Performed by [employer], [address] [place] [address] [email or web address], Mio Anderson MD, Lab. Director Blood BLOOD SPECIMEN / Unknown Lab Venipuncture / Unknown 05/21/2019 1:56 PM SALES DEVELOPMENT SPECIALIST 05/21/2019 2:07 PM SALES DEVELOPMENT SPECIALIST Jenna [facility] LAB - CHEMISTR Y ORDERABLES Performing Organization Address [facility]/ZIP Co de Phone Number [facility] Cozy Queen [facility]) [address] [place] [address] * VALPROIC ACID FREE+TOTAL PANEL (05/21/2019 1:56 PM SALES DEVELOPMENT SPECIALIST) Valproic Acid Free 11 7 - 23 ug/mL 05/23/2019 3:52 PM SALES DEVELOPMENT SPECIALIST [employer] ([facility]) Valproic Acid Total 83 50 - 125 ug/mL 05/23/2019 3:52 PM SALES DEVELOPMENT SPECIALIST [facility] Cozy Queen [facility]) Valproic Acid % Free 13 5 - 18 % 05/23/2019 3:52 PM SALES DEVELOPMENT SPECIALIST [employer] ([facility]) Comment: INTERPRETIVE INFORMATION: VPA-percent Free Valproic Acid, [...] include headache, somnolence and dizziness. Performed by [employer], [address] [place] [address] [email or web address], Mio Anderson MD, Lab. Director Blood BLOOD SPECIMEN / Unknown Lab Venipuncture / Unknown 05/21/2019 1:56 PM SALES DEVELOPMENT SPECIALIST 05/21/2019 2:07 PM SALES DEVELOPMENT SPECIALIST Jenna [facility] LAB - THERAPEU TIC DRUG MONITORING ORDERABLES Performing Organization Address [facility]/ZIP Co de Phone Number [facility]) [address] [place] [address] * (ABNORMAL) LEVETIRACETAM LEVEL (05/21/2019 1:56 PM SALES DEVELOPMENT SPECIALIST) Levetiracetam 74.4(H) 10.0 - 40.0 ug/mL 05/25/2019 4:08 PM SALES DEVELOPMENT SPECIALIST [facility] ([facility]) Comment: This test was developed and its performance characteristics determined by [facility]. It has not been cleared or approved by the Food and Drug Administration. Blood BLOOD SPECIMEN / Unknown Lab Venipuncture / Unknown 05/21/2019 1:56 PM SALES DEVELOPMENT SPECIALIST 05/21/2019 2:07 PM SALES DEVELOPMENT SPECIALIST Narrative [facility] ([facility]) - 05/25/2019 4:08 PM SALES DEVELOPMENT SPECIALIST Performed at: ??01 - [address] ??[id number] Editor Map: Terence Ramos MD, Phone: ??[phone] Jenna Ivy CALL CENTER SUPERVISOR-FLEXIBLE BABYSITTER LAB - THERAPEU TIC DRUG MONITORING ORDERABLES Performing Organization Address City/State/[facility] Co de Phone Number [facility] ([facility]) [address] [place] [place] [phone] documented in this encounter Visit Diagnoses Diagnosis 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
--- OUTSIDE RECORDS SUMMARY | 2024-06-08 05:43 | XMS_ITS | Encounter Summary ---
Author Organization [facility] Health Address [address] [place] [address] Care Team Providers Care Brick Setter Name Role Phone Misael Maradiaga DO Primary Care Provider Elizabeth Sullivan RN Unavailable [phone] Reason for Visit * Auth/Cert Specialty Diagnoses / Procedures Referred By Contkatarzyna t Referred To Contact Diagnoses Seizure Referral ID Status Reason Start Date Expiration Date Visits Re quested Visits Authorized [id number] 1 1 Encounter Details Date Type Department Care Team (Latest Contact Info) Description 05/09/2019 7:21 PM MATERNITY FLOOR SUPERVISOR - 05/16/2019 6:24 PM [facility] Hospital Encounter [address] [address] Sadiq Smith MD [address] [place] [id number] Neurology Discharge Disposition: Nursing Home Facility Social History Tobacco Use Types Packs/Day [...] Sign Reading Time Taken Comments Blood Pressure 128/77 05/16/2019 4:18 PM MATERNITY FLOOR SUPERVISOR Pulse 74 05/16/2019 4:18 PM MATERNITY FLOOR SUPERVISOR Temperature 36.4 ??C (97.6 ??F) 05/16/2019 4:18 PM CS T Respiratory Rate 18 05/16/2019 4:18 PM MATERNITY FLOOR SUPERVISOR Oxygen Saturation 100% 05/16/2019 4:18 PM MATERNITY FLOOR SUPERVISOR Inhaled Oxygen Concentration 99% 05/12/2019 7 :40 AM MATERNITY FLOOR SUPERVISOR Weight 57.6 kg (127 lb) 05/10/2019 2:00 PM MATERNITY FLOOR SUPERVISOR Height 180.3 cm (5' 11 ) 05/10/2019 2:00 PM MATERNITY FLOOR SUPERVISOR Body Mass Index 17.71 05/10/2019 2:00 PM MATERNITY FLOOR SUPERVISOR documented in this encounter Functional Status Functional [...] 05/16/2019 documented as of this encounter Discharge Summaries * Brian Lawrence MD - 05/16/2019 2:56 PM CST Physician Discharge Summary Patient Name: Bi Tabor Date of : 1960 Admit date: 05/09/2019 Discharge date: 05/16/2019 Admitting Physician: Sadiq Smith MD Attending Physician: Sadiq Smith MD Discharge Physician: Sadiq Smith MD Admission Diagnosis: seizure Past Medical History Past Medical History: Diagnosis Date ??? CVA (cerebral vascular accident) ??? HTN (hypertension) ??? Seizure Discharge Diagnoses Seizure Diagnostic Studies See hospital course Treatments See hospital course Procedures See hospital course Consults None Hospital Course Mr. Bi Tabor is a 59M with PMH of ischemic right occipital stroke, seizures, alcohol abuse who initially presented to OSH 05/04/19 with 5 breakthrough seizures in a 30 minute period. Episodes described as dyscognitive events with possible left gaze preference lasting approximately 30 seconds. No abnormal movements noted. Patient reportedly returned to baseline between events. Initial labs at [facility]: WBC 9.5, BMP unremarkable, VPA level 56.1, UDS BZD+. Patient was transferred to [facility] for further management. En route to [facility], reportedly has seizure event with EMS and was given Ativan. Significant events this admission: 05/11: -Continued focal status/ Sz activity yesterday/overnight. Increased Vimpat to 200 mg BID and gave ativan 2 mg. -S/p repeat MRI brain this AM, findings suggestive of focal status. Recieved additional 1 mg ativanprior to MRI -Continues to be in focal status this AM although appears improved from admission. During assessment noted fixed left gaze deviation for 30 seconds followed by right gaze deviation for brief time afterwards. While gaze deviated left pt was not following commands or responding but was able to squeeze hand on commands during episode right sided gaze deviation. Gave additional 1 g solumedrol, 2 mg ativan, fosphenytoin load, and increased depacon/depakote to 750 mg BID. -UOP slightly improved. Nursing noted as malodorous. UA positive for UTI, started on ceftriaxone, completed 05/13. 05/12: Pulled NG tube out. More awake. 05/15: Episode of tachycardia to 168 overnight. Not documented in vital signs but apparently was confirmed at bedside via RN. No associated chest pain or difficulty breathing. Trops x 2 and CK-mb negative. Telemetry from overnight shows runs of tachycardia. Patient discharged to return to SNF. An appointment was made for patient to follow up with neurology clinic on 05/21/19. Condition at discharge: fair Disposition: halfway facility Code Status At Discharge Full Code Patient Instructions Current Discharge Medication List START taking these medications Instructions Authorizing Provider levETIRAcetam 1000 MG tablet Commonly known as: KEPPRA Quantity Dispensed: 120 tablet Take 2 tablets by mouth 2 times daily for 30 days Brian Lawrence MD CONTINUE taking these medications which have CHANGED Instructions Authorizing Provider divalproex DR 250 MG tablet What changed: ?? medication strength ?? how much to take Commonly known as: DEPAKOTE Quantity Dispensed: 180 tablet Take 3 tablets by mouth 2 times daily for 30 days Brian Lawrence MD lacosamide 200 MG tablet What changed: ?? medication strength ?? how much to take Commonly known as: VIMPAT Quantity Dispensed: 60 tablet Take 1 tablet by mouth 2 times daily for 30 days Brian Lawrence MD CONTINUE taking these medications which have [...] mouth once daily Kortney Vega MD atorvastatin 20 MG tablet Commonly known as: LIPITOR B-12 1000 MCG Quantity Dispensed: 30 capsule Take 1 mg by mouth once daily Ck Feliciano MD clonazePAM 0.5 MG tablet Commonly known as: KlonoPIN Quantity Dispensed: 30 tablet Take 1 tablet as needed after a seizure to prevent clustering, every 8 hours as needed. Ck Feliciano MD folic acid 1 MG tablet Commonly known as: FOLVITE Quantity Dispensed: 30 tablet Take 1 tablet by mouth once daily Ck Feliciano MD ibuprofen 600 MG tablet Commonly known as: MOTRIN tamsulosin 0.4 MG capsule Commonly known as: FLOMAX thiamine 100 MG tablet Commonly known as: VITAMIN B-1 Quantity Dispensed: 30 tablet Take 1 tablet by mouth once daily Ck Feliciano MD Future Appointments Provider Department Center 05/21/2019 1:00 PM Jenna Ivy, POSTPARTUM RN-[facility] Neurology [facility] Discharge time: less than 30 minutes. Hoang Lawrence MD RNITY FLOOR SUPERVISOR Associated attestation - Sadiq Smith MD - 05/17/2019 1:00 PM MATERNITY FLOOR SUPERVISOR I have examined the patients and discussed the findings of my examination with the patient and the resident. I agree with the resident regarding the assessment and plan of care. documented in this encounter Discharge Instructions * Discharge Instructions* Brian Lawrence MD - 05/16/2019 3:02 PM MATERNITY FLOOR SUPERVISOR IMPORTANT MESSAGE FROM YOUR DOCTORS: Dear Bi Tabor, You were admitted to the hospital for seizures. Your seizures are now stable and you are being discharged to return to the [facility]. Please note the following instructions: 1. Medications Please continue taking all of your home medications as instructed with the following modifications: Start taking Keppra 1000 mg twice a day Start taking Depakote DR 750 mg twice a day Start taking Vimpat (lacosamide) 200 mg twice a day These changes are noted in the medication list below. Please discuss these changes with your Primary Care Physician. 2. Follow-up Please follow-up in the neurology clinic as below: Future Appointments Provider Department Center 05/21/2019 1:00 PM Jenna Ivy, POSTPARTUM RN-[employer]ORATORY TECHNICIAN [facility] [place] [facility] 3. Lifestyle Modifications - It is very [...] us to participate in your care. Sincerely, [facility] phone number: Scheduling line phone number: RNITY FLOOR SUPERVISOR documented in this encounter Medications at Time [...] mouth once daily 30 capsule 10/26/2018 03/12/[address] (DEPAKOTE) 250 MG tablet Take 3 tablets by mouth 2 times daily for 30 days 180 tablet 5 05/16/2019 06/15/2019 folic acid (FOLVITE) 1 MG tabletIndications:Folat e deficiency Take 1 tablet by mouth once daily 30 tablet 10/26/2018 03/12/2021 ibuprofen (MOTRIN) 600 MG tablet [...] as of this encounter Progress Notes * Burke North - 05/16/2019 4:25 PM CST Discharge Extractor Operator Solvent Process received request from Dr. Brian Lawrence to arrange follow-up appointment for Patient with Dr. Feliciano. This rfp writer called Dominick @ [phone] and spoke with Portillo. Extractor Operator Solvent Process was able to obtain follow-up appointment for Patient with Dr. Ck Feliciano on 11/14/2019 at 10:30am (patient also scheduled to see Deidre Ivy APRN on @ 1:00pm). No further follow-upneeds from research scientist indicated at this time. Burke North, Discharge Extractor Operator Solvent Process 05/16/2019 RNITY FLOOR SUPERVISOR * Tamie Matthew, PT - 05/16/2019 3:52 PM CST [facility] Physical Medicine and Rehabilitation PhysicalTherapy Progress Note Patient: Bi Tabor Med Record Number: [id number] Date of : 1960 Age: [age] year old Discharge Recommendation: Patient will benefit from multidisciplinary inpatient therapies. Frequency: Patient to be scheduled 5x/week while in hospital. Subjective: Hi. Pt agreeable to PT session. Patient is not ambulatory at this time. Mental Status: Alert and oriented to self, birthday, [place]. and April. States year as 1959 which is his year; 25-50% command follow to 1 step commands with maximal verbal and tactilecues; fatigued At start of therapy session, patient found in bed and with no alarm. Pain: Patient has no pain reported during PT session. Weight Bearing Status: BLE WBAT Mobility: Rolling: not tested Supine to Sit: Maximal assist of 1 Sit to Supine: Moderate - maximal assist of 1 Sit to Stand:Maximal assist x 2 reps; moderate assist x1 rep Bed to Chair: not tested Gait: Pt not ambulatory at this time. Balance: Static Sitting: fair minus Dynamic sitting: poor plus Static Standing: poor Dynamic Standing: not tested Stairs : NT Vitals: Rest BP: HR: Sp02 Sp02 Room Air L O2 Ex/Gait/Activity Without 02 BP: HR: Sp02 Room Air Ex/Gait/Activity With 02 BP: HR: Sp02 L O2 Post Activity BP: HR: Sp02 Sp02 L O2 Room Air Observations: Pt on . No signs or symptoms of distress with activity/postural changes this date. Activity Tolerance: Patient's activity tolerance: fair minus Treatment/therapeutic Exercise: sup >sit maximal assist X1 with maximal cues pt with difficulty following commands during this transfer; Seated EOB BLE LAQs, marches, ankle pumps X5-10 reps; sit<>stand maximal assist x2 reps, moderate assist x1 rep; sit > supine moderate- maximal assist Patient/Family Teaching: Exercise and Mobility Patient demonstrated Fair understanding of instructions given. Short Term Goals: Patient unable to participate in goal formation Patient will perform bed mobility: SBA Patient will perform sit<>stand minimal assist Patient will perform side steps EOB with appropriate assistive device and minimal assist Fpc Goal: Patient to discharge to appropriate next level of inpatient care. Update Treatment Plan: Pt to continue with PT POC in order to increase safety and independence withfunctional mobility. If patient is discharged from the facility, this note serves as a discharge note if further physical therapy visits did not occur. Following therapy session, patient left in bed, with bed alarm on and with call light within reach. Tamie Matthew, PT 05/16/2019 OT * Lily Jackson - 05/16/2019 3:36 PM CST [facility] Physical Medicine and Rehabilitation Occupational Therapy Progress Note Patient: Bi Tabor [facility] Record Number: [id number] Date of : 1960 Age: [age] year old Discharge Recommendation: Patient will benefit from intense 3 hour per day multidisciplinary inpatient therapies. Frequency: Patient to be scheduled 5x/week while in hospital. Precautions: fall, seizure Subjective: Pt agreeable to therapy At start of therapy session, patient found in bed and with no alarm. Pain: Patient has 0 out of 10 pain. Nurse notified. Activities of Daily Living Feeding: independent per pt Grooming/Bathing: not tested Upper Extremity Dressing: not tested Lower Extremity Dressing: not tested Toileting/Transfers: not tested Mobility: Assist device: Wheeled Walker Supine to/from Sit:Stand By Assist Sit to/from Stand: Moderate assist Bed to/from Chair: not tested, pt unable to advance feet Functional Mobility: not tested Balance: Static Sitting: fair Dynamic Sitting: fair Static Standing: poor Dynamic Standing: poor Vitals: Rest BP: HR: SpO2 SpO2 Room Air L 02 Ex/Gait/Activity Without 02 BP: HR: SpO2 Room Air Ex/Gait/Activity With 02 BP: HR: SpO2 L 02 Post Activity BP: HR: SpO2 SpO2 L 02 Room Air Observations: no SOB observed, pt denied lightheadedness Activity tolerance: good Cognitive/Perceptual: vision and hearing intact, follows ~ 50% commands with max cues, unable to follow walker safety, oriented x 2, 1/3 recall for date upon reorientation, 1 error on 2 trials of counting to 10 Treatment/Therapeutic Exercise: Treatment session this date focused on ADL training Cognitive retraining Functional transfer training Bed mobility Patient/Family Teaching: Mobility and Self care Equipment Issued: none Update Treatment Plan/Goals : goals updated Short Term Goals: Cognition: 1 step commands and 75% of the time Patient will increason orientation to person, place and time Patient will perform lower extremity dressing With mod assist Patient will perform supine to sit Independently ?? Rotor Casting Machine Operator Goal: Patient to discharge to appropriate next level of inpatient care If patient is discharged from the facility, this note serves as a discharge note if further occupational therapy visits did not occur. Following therapy session, patient left in bed and with call light within reach. Lily Jackson RNITY FLOOR SUPERVISOR * Angelina Gould MSW - 05/16/2019 3:29 PM CST Facility Transfer Note Level of Care: Actual level of care at discharge: Halfway - Medicaid Facility Name: (include name of person confirming admission): Actual discharge provider: MARIOLA [place] Made Aware of Special Needs (if applicable): YES RN Call Report to: [phone] RN Fax D/C Orders to:[phone] Transportation (company and number): [id number] [phone] Certificate of Medical Necessity rationale: seizure disorder Date/time of transfer: 05/16/19 Accepting MD: Dr. Yang Completed and Signed [id number] (if applicable): n/a Family/Other Notified of Transfer (name/phone): SW notified patient's sister Adriane via phone Authorization Skilled Care: Authorization for Transportation: Verified Qualifying Stay(Skilled Only): NOT APPLICABLE Comments: Transfer to SNF via ambulance CLARITA Ochoa RNITY FLOOR SUPERVISOR * Saloni King RN - 05/16/2019 1:42 PM CST Pt has been seizure free on this shift. RN will continue to monitor. RNITY FLOOR SUPERVISOR * Juan Diego Lutz - 05/16/2019 9:28 AM CST Neurology Progress Note Patient: Bi Tabor Room: 521 Age: [age] year old Date of Encounter: 05/15/2019 HPI: Bi Tabor is a 59 year old male with PMHx of R occipital ischemic stroke in 2014, EtOH use, HTN, and post stroke epilepsy who presented from an OSH for management of breakthrough seizures. History per initial consult: Patient initially presented to OSH 05/04/19 with 5 breakthrough seizures in a 30 minute period. Episodes described as dyscognitive events with possible left gaze preference lasting approximately 30 seconds. No abnormal movements noted. Patient reportedly returned to baseline between events. Initial labs at OSH er with WBC 9.5, BMP unremarkable. VPA level 56.1. UDS BZD+ only. Patient reportedly with continued seizure events this admission despite increase of levetiracetam to prior 1500mg BID [home dose actually 2 g BID]. Evaluation with EEG showing right sided discharges, though formal read not in OSH records. MRI brain also obtained showing diffusion restrictionin Right occipital and parietal lobes as well as small area in right frontal lobe and thalamus. Right hippocampal atrophy also noted. CUS also obtained showing no significant stenosis. Patient discussed with stroke attending via transfer line, MRI findings felt likely to be post ictal, later discussed with general attending and accepted for seizure management. ?? En route patient with repeat seizure event reported per EMS, administered ativan prior to arrival. Since admission SLU, VSS. ?? Pt started on Keppra 1500 mg, depacon 500 mg BID, vimpat 50 mg BID, Klonopin 0.5 mg Q8H prn. CXR obtained and without acute cardiopulmonary process identified. Pt w decreased UOP and unable obtain UA. Pt was bolused and started maintenance fluids. cEEG significant for focal status epilepticus. AM of 12/12 Pt was given 2 mg ativan, Keppra increased to 2 g BID, received load vimpat 200 mg but still kept 50 mg BID dose, and continued on depacon. Also got additional 1 g Keprra, 1 g solumedrol, and 2 mg ativan in afternoon for continued Sz activity. NGT placed and started TFs. Interval History: No acute events overnight. Repeat troponin/CKMB wnl. No seizure activity noted overnight. Allergies: No Known Allergies Home Medications: Current Facility-Administered Medications: 0.9% NaCl injection 3 mL And 0.9% NaCl injection 1-10 mL amLODIPine (NORVASC) tablet 5 mg aspirin chew tablet 81 mg atorvastatin (LIPITOR) tablet 20 mg clonazePAM (KlonoPIN) tablet 0.5 mg cyanocobalamin (VITAMIN B-12) tablet 1,000 mcg dextrose 10% infusion dextrose IV 12.5-25 g valproate (DEPACON) 750 mg in 0.9% NaCl 57.5 mL IVPB Or divalproex DR (DEPAKOTE) tablet 750 mg folic acid (FOLVITE) tablet 1 mg glucagon (GLUCAGEN) injection 1 mg glucose (Diabetic Use) oral gel heparin injection 5,000 Units insulin aspart (NovoLOG) pen 0-6 Units lacosamide (VIMPAT) tablet 200 mg levETIRAcetam (KEPPRA) tablet 2,000 mg nicotine (NICODERM CQ) patch 7 mg tamsulosin (FLOMAX) capsule 0.4 mg PMH: Past Medical History: No date: CVA (cerebral vascular accident) No date: HTN (hypertension) No date: Seizure Family History: No family history on file. Social History: Social History Socioeconomic History Marital status: Single Spouse name: Not on file Number of children: Not on file Years of education: Not on file Highest education level: Not on file Occupational History Not on file Social Needs Financial resource strain: Not on file Food insecurity: Worry: Not on file Inability: Not on file Transportation needs: Medical: Not on file Non-medical: Not on file Tobacco Use Smoking status: Current Every Day Smoker Packs/day: 1.00 Years: 15.00 Pack years: 15 Smokeless tobacco: Never Used Substance and Sexual Activity Alcohol use: No Comment: last 2015 Drug use: No Comment: occasional Sexual activity: Not Currently Lifestyle Physical activity: Days per week: Not on file Minutes per session: Not on file Stress: Not on file Relationships Social connections: Talks on phone: Not on file Gets together: Not on file Attends denominational service: Not on file Active member of club or organization: Not on file Attends meetings of clubs or organizations: Not on file Relationship status: Not on file Intimate partner violence: Fear of current or ex partner: Not on file Emotionally abused: Not on file Physically abused: Not on file Forced sexual activity: Not on file Other Topics Concerns: Not on file Social History Narrative Not on file Physical Exam: Vitals: -- 05/14/19 05/14/19 05/14/19 05/15/19 1557 2105 2353 0410 -- BP: 137/87 129/97 117/78 153/93 Pulse: 87 85 90 79 Resp: 20 18 20 18 Temp: 98.3 ??F (36.8 ??C) 97.8 ??F (36.6 ??C) 98.2 ??F (36.8 ??C) 97.9 ??F (36.6 ??C) SpO2: 97% 98% 98% 100% Weight: Height: -- Exam: Cortical Function: MS: Awake, follows simple commands Oriented to Person only Language: Dysarthric, follows simple commands VF: EARNEST Neglect No visual neglect, No tactile neglect Cranial Nerves: Pupils 3 mm BRTL, Full EOM, No ptosis or nystagmus Facial sensation intact bilaterally to LT; No facial palsy; uvula deviated to the left; Normal tongue protrusion Motor: Abnormal Movements: None Bulk: cachetic Tone: Normal Strength: RUE 4/5 RLE 4/5 LUE 3/5 LLE 3/5 DTR: Bi Tri BR Pat Ach Toes R 3 3 3 3 3 Down L 3 3 3 3 3 Down Sensory: Intact to light touch Cerebellar: Deferred Gait: Deferred Labs: CBC: Component Name 05/14/19 05/13/19 05/12/19 0357 0415 0542 WBC 8.0 9.9 18.7* HGB 14.8 14.1 12.7* BMP: Component Name 05/14/19 05/13/19 05/12/19 0357 0415 0542 NA 140 140 140 CL 104 103 108* CO2 24 27 24 BUN 12 7 10 CREATININE 0.6 0.7 0.7 GLU 112 93 140* Component Name 05/14/19 05/13/19 05/12/19 0357 0415 0542 CALCIUM 9.7 9.1 8.5 PHOS 3.1 2.5 2.2* LFT: Component Name 01/24/19 01/22/19 01/14/19 0154 0425 0123 PROT 6.9 7.4 6.6 ALB 4.0 4.4 4.2 ALKPHOS 80 65 59 AST 13 14 22 ALT 10 12 15 Coagulation: Component Name 04/11/15 0622 PT 12.1 INR 0.9 Cardiac markers: Component Name 05/14/19 05/13/19 10/21/18 2152 2030 1231 TROPONINI <0.010 0.012 0.012 cEEG 05/12/2019 IMPRESSION This is an abnormal cEEG due to??1) focal onset seizures, 2) right hemispheric epileptiform discharges and lateralized periodic discharges??(LPDs), 3) lateralized right hemispheric slowing, and 4) moderate??generalized slowing. ?? CLINICAL CORRELATION: This study is suggestive of [...] improvement in the form of less propagation. ?? Between 05/11/2019 to 05/12/2019, the electrographic seizures dissipated, replaced by predominantlyleft central discharges and LPDs. ??Last electrographic seizure was identified at 09:33 AM on 05/11/2019. ?? MRI brain: IMPRESSION: ?? Large area of cortical signal abnormality involving [...] inverted papilloma or other nonaggressive sinus lesion. Assessment: Bi Tabor is a 59 year old male with PMHx of R occipital ischemic stroke in 2014, EtOH use, HTN, and post stroke epilepsy who presented from an OSH for management of breakthrough seizures. Seizure likely resulting from medication non-compliance. Seizure status is now stable. Troponin/CKMB wnl after episode of tachycardia. Discharge will be considered once patient is better tolerating oral intake. SW working on placement. Plan: 1. Post stroke epilepsy/breakthrough seizures -Continue Levetiracetam 2000mg BID -Continue Depakote 750 mg BID -Continue Lacosamide 200mg BID -clonazepam 0.5mg PRN for clusters -Fall and seizure precautions -Neuro checks ?? 2. UTI, resolved - s/p Ceftriaxone x 3days (end date 05/13) ?? 3. History of ischemic stroke - Continue ASA - Continue atorvastatin 20mg ?? 4. History of alcohol use - Thiamine 500 mg IV TID x3 days (end date 05/14) - Continue folate ?? 5. HTN - Continue amlodipine 5 mg ?? 6. B12 deficiency - Continue B12 1000mcg daily ?? 7. Nutrition: - Now on oral diet - Accuchecks Patient case findings discussed with Dr. Smith, Neurology Attending. Juan Diego Lutz, 3 05/16/2019 9:28 AM RNITY FLOOR SUPERVISOR * Brian Lawrence MD - 05/16/2019 9:24 AM CST Neurology Progress Note Patient: iB Tabor Room: 521 Age: [age] year old Brief Hx: Per Dr. Sauer with amendments/ edits as appropriate Bi Tabor is a 59 year old M, with pmh notable for ischemic stroke (R occipital 2014), hx ofEtOH use, HTN, and post stroke Epilepsy, who presents as an OSH transfer for the management of breakthrough seizure. ?? Patient initially presented to OSH 05/04/19 with 5 breakthrough seizures in a 30 minute period. Episodes described as dyscognitive events with possible left gaze preference lasting approximately 30 seconds. No abnormal movements noted. Patient reportedly returned to baseline between events. Initial labs at OSH er with WBC 9.5, BMP unremarkable. VPA level 56.1. UDS BZD+ only. Patient reportedly with continued seizure events this admission despite increase of levetiracetam to prior 1500mg BID [home dose actually 2 g BID]. Evaluation with EEG showing right sided discharges, though formal read notin OSH records. MRI brain also obtained showing diffusion restriction in Right occipital and parieta l lobes as well as small area in right frontal lobe and thalamus. Right hippocampal atrophy also noted. CUS also obtained showing no significant stenosis. Patient discussed with stroke attending via transfer line, MRI findings felt likely to be post ictal, later discussed with general attending andaccepted for seizure management. ?? En route patient with repeat seizure event reported per EMS, administered ativan prior to arrival. Since admission [facility], VSS. Pt started on Keppra 1500 mg, depacon 500 mg BID, vimpat 50 mg BID, Klonopin 0.5 mg Q8H prn. CXR obtained and without acute cardiopulmonary process identified. Pt w decreased UOP and unable obtain UA. Pt was bolused and started maintenance fluids. cEEG significant for focal status epilepticus. AM of 05/10 Pt was given 2 mg ativan, Keppra increased to 2 g BID, received load vimpat 200 mg but still kept 50 mg BID dose, and continued on depacon. Also got additional 1 g Keprra, 1 g solumedrol, and 2 mg ativan in afternoon for continued Sz activity. NGT placed and started TFs. ?? Hospital Course: 05/11: -Continued focal status/ Sz activity yesterday/overnight. Increased Vimpat to 200 mg BID and gave ativan 2 mg. -S/p repeat MRI brain this AM, findings suggestive of focal status. Recieved additional 1 mg ativanprior to MRI -Continues to be in focal status this AM although appears improved from admission. During assessment noted fixed left gaze deviation for 30 seconds followed by right gaze deviation for brief time afterwards. While gaze deviated left pt was not following commands or responding but was able to squeeze hand on commands during episode right sided gaze deviation. Gave additional 1 g solumedrol, 2 mg ativan, fosphenytoin load, and increased depacon/ depakote to 750 mg BID. -UOP slightly improved. Nursing noted as malodorous. UA positive for UTI, started on ceftriaxone. 05/12: Pulled NG tube out. More awake. 05/15: Episode of tachycardia to 168 overnight. Not documented in vital signs but apparently was confirmed at bedside via RN. No associated chest pain or difficulty breathing. Trops x 2 and CK-mb negative. Telemetry from overnight shows runs of tachycardia. Interval events: No acute events overnight. Objective: BP 128/86 Pulse 72 Temp 97.4 ??F (36.3 ??C) (Oral) Resp 18 Ht 1.803 m (5' 11 ) Wt 57.6 kg (127 lb) SpO2 99% BMI 17.71 kg/m2 Temp (30hrs) Max:99 ??F (37.2 ??C) Body mass index is 17.71 kg/m??. Exam: Con - frail and cachectic, NAD Heent - NCAT, dry mucous membranes, anicteric sclera Neck - No JVD, neck supple trachea midline CV - RRR, + apical systolic murmur Pulm - CTAB Abd - BS+, soft, NT/ND Ext: No c/c/e, palpable peripheral pulses Cortical Function Mental Status Awake, interacts Orientation Self only Language Follows simple commands Visual Ivan Intact Neglect No tactile or visual neglect Cranial Nerves II Pupils 3 mm and bilaterally reactive to light. Fundoscopic exam not performed. VIII Hearing intact III/IV/ No gaze palsies, moving eyes in all directions IX/X left deviation of uvula with palate elevation V Facial sensation intact XI Head turning intact VII No facial droop XII Tongue midline Motor Function Movement No abnormal movements Bulk cachectic Tone No abnormalities noted Proximal Upper Distal Upper Proximal Lower Distal Lower Right 4/5 4/5 4/5 4/5 Left 3/5 3/5 3/5 3/5 Muscle Stretch Reflexes BI TRI BR PAT ACH TOES Right 3 3 3 3 3 Down Left 3 3 3 3 3 Down Sensory Light Touch intact Noxious Stimuli Not tested Temperature Not tested Pallesthesia Not tested Cerebellar Deferred Gait Deferred Labs: Recent Results (from the past 24 hour(s)) CBC W AUTO DIFFERENTIAL Collection Time: 05/15/19 12:00 PM Result Value Ref Range WBC 7.2 3.5 - 10.5 10??3/uL RBC 4.81 4.30 - 5.70 10??6/uL Hemoglobin 14.9 13.5 - 17.5 g/dL Hematocrit 45.3 39.0 - 50.0 % MCV 94.2 81.0 - 97.0 fL MCH 31.0 28.0 - 34.0 pg MCHC 32.9 32.0 - 36.0 g/dL Platelet Count 177 150 - 400 10??3/uL RDW-SD 42.5 36.0 - 50.0 fL RDW-CV 12.2 11.2 - 14.8 % MPV 11.7 9.3 - 12.8 fL nRBC Absolute 0.00 0 10??3/uL nRBC Auto 0.0 0 /100 WBC Neutrophils % 62.4 35.0 - 70.0 % Lymphocytes % 27.5 19.7 - 55.1 % Monocytes % 7.5 3.0 - 15.0 % Eosinophils % 2.1 0.0 - 6.0 % Basophil % 0.1 0.0 - 1.5 % Neutrophils Absolute 4.5 1.6 - 7.0 10??3/uL Lymphocyte Absolute 2.0 0.8 - 2.9 10??3/uL Monocytes Absolute 0.54 0.14 - 0.66 10??3/uL Eosinophils Absolute 0.15 0.00 - 0.45 10??3/uL Basophils Absolute 0.01 0.00 - 0.06 10??3/uL Immature Granulocytes % 0.4 0.0 - 1.0 % GLUCOSE - POINT OF CARE Collection Time: 05/15/19 12:10 PM Result Value Ref Range Glucose 148 (H) 70 - 115 mg/dL Specimen Type Arterial/Capillary GLUCOSE - POINT OF CARE Collection Time: 05/15/19 3:55 PM Result Value Ref Range Glucose 109 70 - 115 mg/dL Specimen Type Arterial/Capillary EKG 12-LEAD Collection Time: 05/15/19 4:00 PM Result Value Ref Range Ventricular Rate 116 BPM Atrial Rate 116 BPM P-R Interval 134 ms QRS Duration ms 80 ms Q-T Interval ms 328 ms QTC Calculation (Bezet) 455 ms Calculated P [place] 81 degrees Calculated R [place] 29 degrees Calculated T [place] 91 degrees Interpretation EKG SINUS TACHYCARDIA SEPTAL INFARCT , AGE UNDETERMINED ABNORMAL ECG WHEN COMPARED WITH ECG OF 14-MAY-2019 20:23, MANUAL COMPARISON REQUIRED, DATA IS UNCONFIRMED TSH Collection Time: 05/15/19 4:52 PM Result Value Ref Range TSH 1.344 0.350 - 4.940 uIU/mL T4 FREE Collection Time: 05/15/19 4:52 PM Result Value Ref Range T4 Free 0.9 0.7 - 1.5 ng/dL GLUCOSE - POINT OF CARE Collection Time: 05/15/19 9:03 PM Result Value Ref Range Glucose 102 70 - 115 mg/dL Specimen Type Arterial/Capillary GLUCOSE - POINT OF CARE Collection Time: 05/16/19 12:01 AM Result Value Ref Range Glucose 153 (H) 70 - 115 mg/dL Specimen Type Arterial/Capillary GLUCOSE - POINT OF CARE Collection Time: 05/16/19 4:45 AM Result Value Ref Range Glucose 115 70 - 115 mg/dL Specimen Type Arterial/Capillary cEEG 05/12/2019 IMPRESSION This is an abnormal cEEG due to 1) focal onset seizures, 2) right hemispheric epileptiform discharges and lateralized periodic discharges (LPDs), 3) lateralized right hemispheric slowing, and 4) moderate generalized slowing. ?? CLINICAL CORRELATION: This study is suggestive of focal onset seizures, increased tendency toward seizures, lateralized right hemispheric dysfunction, and moderate encephalopathy. Between 05/09/2019 to 05/10/2019, the patient had frequent focal onset seizures of right hemispheric or midline onset, consistent with focal s tatus epilepticus, with clinical correlation in the form of oral automatism or left facial twitching. Between 05/10/2019 to 05/11/2019, there continued to be focal status epilepticus, with some degree of improvement in the form of less propagation. ?? Between 05/11/2019 to 05/12/2019, the electrographic seizures dissipated, replaced by predominantlyright central discharges and LPDs. Last electrographic seizure was identified at 09:33 AM on 05/11/2019. MRI brain: IMPRESSION: ?? Large area of cortical signal abnormality involving [...] inverted papilloma or other nonaggressive sinus lesion. Assessment and Plan: Mr. Bi Tabor is a 59M who presented from OSH in status epilepticus. Patient was loaded with AED'sand has been without seizure for multiple days. Patient's presentation likely due to medication non-compliance. His seizure status is now stable. Now taking oral and can be discharged to return to SNF. Family wants patient to go to a different facility as they have concerns with patient receiving medication where he was before. #Post stroke epilepsy c/b frequent breakthrough Sz - Likely due to medication non-compliance??exacerbated by UTI -S/p methypred 1 g, ativan 2 mg, fosphenytoin 1150 mg load (05/11) -Continue Levetiracetam 2000mg BID -Continue Depakote 750 mg BID -Continue Lacosamide 200mg BID -clonazepam 0.5mg PRN for clusters -Fall and seizure precautions -Routine neuro and vital checks #Paroxysmal tachycardia - patient asymptomatic during tachycardia - troponin and CK-mb not elevated - monitor for now, may consider cardiology consult #UTI, resolved - s/p Ceftriaxone x 3days (end date 05/13) -Bladder scans, straight cath prn -Strict I/Os #Hx of Ischemic Stroke -Continue ASA, atorvastatin 20mg ?? #Hx of EtOH use - Thiamine 500 mg IV TID x3 days (end date 05/14) - Continue folate ?? #HTN - continue amlodipine 5 mg daily ?? #Hx of B12 deficiency - Continue B12 1000mcg daily #Nutrition: - cardiac diet - Accuchecks Case discussed with Attending Physician, Dr. CHERI Lawrence MD Neurology Resident RNITY FLOOR SUPERVISOR Associated attestation - Sadiq Smith MD - 05/16/2019 9:56 AM MATERNITY FLOOR SUPERVISOR I have examined the patients and discussed the findings of my examination with the patient and the resident. I agree with the resident regarding the assessment and plan of care. * Leanne Yap RN - 05/15/2019 11:49 PM CST Problem: Seizures Goal: Seizures are under control or absent Outcome: Ongoing Problem: Fall Risk Goal: Patient will remain free of falls Outcome: Ongoing Problem: Swallowing Goal: LTG - Patient will tolerate the least restrictive diet consistency to allow for safe consumption of daily meals Outcome: Ongoing RNITY FLOOR SUPERVISOR * Darvin Cohen SLP - 05/15/2019 4:37 PM CST [facility] Swallow Treatment Patient: Bi Tabor [facility] Record Number: [id number] Date of : 1960 Age: [age] year old Impressions: Patient presents with mild-moderate oropharyngeal dysphagia evidenced by reduced awareness and level of alertness. Liquids: Thin Diet: Minced & Moist (5)/Mech Altered (DYS2) Swallowing guidelines: Sit at 90 degrees Small, controlled amounts at slow rate Clear pocketing right, left Supervision and/or assistance at meals Discharge Recommendations: TBD Frequency: Patient to be scheduled 5x/week while in hospital. Speech therapy is recommended to improve swallow function. Subjective: Mental Status: Confused Pain: Patient reports no pain Objective: Breathing Status: Room air Tracheostomy Tube: N/A Trial Swallows: Thin liquids. Soft solids Oral Phase: Prolonged oral transit time/mastication and Oral residue after swallow which was cleared with thin liquid wash Pharyngeal Phase: Grossly intact Signs of Aspiration: No overt signs and symptoms of aspiration/penetration Exercises: Not able to follow commands for exercises Assessment: Swallow: Dysphagia: Oral: Moderate Behavioral: Impulsive and Lethargic Education: Patient and Nursing instructed in recommedations and indicated understanding. Goals: Short Term Goals: Patient to demonstrate no clinical signs/symptoms of aspiration or difficulty swallowing with recommended diet. Fpc Goal(s): Patient to be independent/baseline with speech/language/cognitive/swallowing to be able to safely discharge to prior level of care. If patient is discharged from the facility, this note serves as a discharge note if further speech therapy visits did not occur. JOSIAS Choi Speech-Language Pathologist RNITY FLOOR SUPERVISOR * Myrna Lombardo, PT - 05/15/2019 2:00 PM CST [facility] Physical Medicine and Rehabilitation Physical Therapy Initial Evaluation Note Patient: Bi Tabor [facility] Record Number: [id number] Date of : 1960 Age: [age] year old Discharge Recommendation: Deferred until mobility can be assessed Frequency: Patient to be scheduled 5x/week while in hospital. Patient is not ambulatory at this time. Nurse contacted regarding patient status and/or discharge plan. Physician Orders: Evaluation and Treat PRECAUTIONS: Fall Activity Level as tolerated DIAGNOSIS: Patient Active Problem List: Seizure Headache, unspecified headache type Hyponatremia Past Medical History: Diagnosis Date ??? CVA (cerebral vascular accident) ??? HTN (hypertension) ??? Seizure SUBJECTIVE: States yeah PATIENT GOALS: none stated Home living: Type of Residence: Halfway Lives with:: Other (Comment) Steps to Enter: No Prior Function: Mobility: Ambulate-In Community Fallen Within 6 Mos: No Have Help at Home?: Yes, there is help at home now At start of therapy session, patient found in bed and with no alarm Pain: Patient has 0/10 pain Follow-up for pain: No follow-up for pain indicated and patient agreed to proceed with treatment OBJECTIVE: General Appearance: Middle-aged,male in bed Precautions: IV's: Peripheral line Skin, Incisions, Edema: Other: Vital Signs:(*Assess the 3 levels of oxygen saturations both for room air and 02 unless rest on room air is 88% or less). Rest: BP: 124/80 HR: 137 O2 SAT: 95 RA Ex/Gait/Activity BP: HR: O2 SAT: Cool Down BP: HR: O2 SAT: Room Air L O2 Observations:RN notified of VS. Resting HR continued in 130's. RN to room to assess patient MENTAL STATUS: Alert and oriented times Self and only DIRECTION FOLLOWING: Able to follow 1 step commands 25 %. Perseverates ROM: WFL STRENGTH: unable to accurately assess due to decreased cognition and command following SENSATION:Unable to accurately assess due to decreased cognition TONE: WFL NEGLECT: questionable COORDINATION: NT FUNCTIONAL MOBILITY Not Tested Not Applicable Independent Stand by Assist Minimal Moderate Maximum Dependent Rolling x Scooting x Supine to/from sit x Sit to/from Stand x Bed to/ chair x Observation: Ambulation not assessed due to increased resting HR. RN aware BALANCE: Sitting Static: not tested Dynamic: not tested Standing Static: not tested Dynamic: not tested Observation: GAIT:NT Weight Bearing: WBAT ACTIVITY TOLERANCE: Patient's activity tolerance: fair TREATMENT/INTERVENTIONS: evaluation, ROM of LE's, bed mobility training and monitoring of vitals EDUCATION: While performing PT, Patient was instructed in:Functional mobility training/weight bearing status, Cognitive retraining and Safety awareness/fall precaution Patient demonstrated Questionable understanding of instructions given. INFORMED CONSENT TO TREATMENT: Plan of care is discussed but patient with questionable understanding. ASSESSMENT: Patient's functional performance presently limited due to: medical condition, bed mobility, transfers, gait, safety awareness and cognition and Patient would benefit from additional Physical Therapy to achieve the following functional goals to enhance independence. Short Term Goals: Goal Formation Patient unable to participate in goal formulation Patient will perform bed mobility: Stand By Assist Will set additional goals when able to assess mobility Fpc Goal(s): Deferred until mobility can be assessed Equipment Issued: none Plan:Continue PT If patient is discharged from the facility, this note serves as a discharge summary if further physical therapy visits did not occur. Following therapy session, patient left in bed, with call light within reach, with RNAshlee aware and without bed alarm due to bed alanis locked and unable to set bed alarm. RN notified Myrna Lombardo, PT 05/15/2019 RNITY FLOOR SUPERVISOR * Angelina Gould MSW - 05/15/2019 12:51 PM CST SW spoke with patient's sister Adriane re: placement. SW informed Adriane that patient was denied by [facility]. Adriane states family no longer wants him at , or [facility] due tofamily stating he was not getting his seizure medications. Adriane requested SW fax referral to [facility]. Referral faxed via [employer]. CLARITA Guzman 05/15/2019 [id number] RNITY FLOOR SUPERVISOR * Lily Jackson - 05/15/2019 11:54 AM CST [facility] Physical Medicine and Rehabilitation Occupational Therapy Initial Evaluation Note Patient: Bi Tabor [facility] Record Number: [id number] Date of : 1960 Age: [age] year old Discharge Recommendation: Patient will benefit from multidisciplinary inpatient therapies. Frequency: Patient to be scheduled 5x/week while in hospital. Plan: ADL training Cognitive retraining Physician Orders: Evaluation and Treat Precautions: fall, seizure DIAGNOSIS: Patient Active Problem List: Seizure Headache, unspecified headache type Hyponatremia Past Medical History: Diagnosis Date ??? CVA (cerebral vascular accident) ??? HTN (hypertension) ??? Seizure SUBJECTIVE / PATIENT GOALS: Pt agreeable to therapy Home living: Type of Residence: Halfway Lives with:: Other (Comment) Steps to Enter: No Prior Function: Mobility: Ambulate-In Community Fallen Within 6 Mos: No Have Help at Home?: Yes, there is help at home now At start of therapy session, patient found in bed and with no alarm. Bed alarm was not working Pain: Patient has 0/10 pain Follow-up for pain: No follow-up for pain indicated and patient agreed to proceed with treatment OBJECTIVE: General Appearance: Male, supine Precautions: IV's: Peripheral line Edema: None observed Vital Signs:(*Assess the 3 levels of oxygen saturations both for room air and 02 unless rest on room air is 88% or less). Pre-activity BP: HR: SpO2: Room Air L O2 Peak activity BP: HR: SpO2: Room Air L O2 Post cool down BP: HR: SpO2: Room Air L O2 Cognitive: Oriented to self, follows ~25% commands possibly due to receptive aphasia, pt repeated birthday when asked today's date during reorientation, poor immediate recall, positive perseveration Perceptual: Vision and hearing intact Upper extremity range of motion: WNL Upper extremity strength: WNL Tone: WNL Coordination: Decreased fine motor Sensation: WNL Patient's activity tolerance: good Comments: No SOB observed, pt denied lightheadedness FUNCTIONAL MOBILITY Not tested Independent Stand by Assist Minimal Moderate Maximum Dependent Rolling X Supine to/from sit X Sit to/from Standing X OT attempted stand, pt would not try to stand, perseverating on socks Bed to/from chair X Functional mobility of ambulation to sink/bathroom with: Not tested Balance: Static Sitting: good minus Dynamic Sitting: fair plus Static Standing: not tested Dynamic Standing: not tested Activities of Daily Living Feeding: Mod Assist Grooming/Bathing: not tested Upper Extremity Dressing: not tested Lower Extremity Dressing: Maximal assist for socks EOB Toileting/Transfers: not tested Splint Issued/Checked: none TREATMENT / EDUCATION / EVALUATION: Purpose of Occupational Therapy evaluation explained. While performing mobility and self care, Patient was instructed in: Functional mobility training/weight bearing status, Cognitive retraining and Self care training Presented to patient who demonstrates Questionable understanding of instructions given. INFORMED CONSENT TO TREATMENT: Plan of care including recommended therapy, goals and frequency, as well as potential risks and benefits of treatment/assessment explained to patient. Patient understands and agrees to proceed. ASSESSMENT: Patient continues to benefit from skilled Occupational Therapy to achieve the following functional goals. Nurse and PT contacted regarding patient status and/or discharge plan. Short Term Goals: Cognition: 1 step commands and 50% of the time Patient will increason orientation to person and place Patient will perform lower extremity dressing With mod assist Patient will perform supine to sit Independently Fpc Goal: Patient to discharge to appropriate next level of inpatient care If patient is discharged from the facility, this note serves as a discharge summary if further occupational therapy visits did not occur. Following therapy session, patient left in bed, with call light within reach, with RN, Michaela wallsat bed alarm was not working and with RN/CP rehab cues written on white board. Lily Jackson 05/15/2019 RNITY FLOOR SUPERVISOR * Brian Lawrence MD - 05/15/2019 10:47 AM CST Neurology Progress Note Patient: Bi Tabor Room: 521 Age: [age] year old Brief Hx: Per Dr. Sauer with amendments/ edits as appropriate Bi Tabor is a 59 year old M, with pmh notable for ischemic stroke (R occipital 2014), hx ofEtOH use, HTN, and post stroke Epilepsy, who presents as an OSH transfer for the management of breakthrough seizure. ?? Patient initially presented to OSH 05/04/19 with 5 breakthrough seizures in a 30 minute period. Episodes described as dyscognitive events with possible left gaze preference lasting approximately 30 seconds. No abnormal movements noted. Patient reportedly returned to baseline between events. Initial labs at OSH er with WBC 9.5, BMP unremarkable. VPA level 56.1. UDS BZD+ only. Patient reportedly with continued seizure events this admission despite increase of levetiracetam to prior 1500mg BID [home dose actually 2 g BID]. Evaluation with EEG showing right sided discharges, though formal read notin OSH records. MRI brain also obtained showing diffusion restriction in Right occipital and parieta l lobes as well as small area in right frontal lobe and thalamus. Right hippocampal atrophy also noted. CUS also obtained showing no significant stenosis. Patient discussed with stroke attending via transfer line, MRI findings felt likely to be post ictal, later discussed with general attending andaccepted for seizure management. ?? En route patient with repeat seizure event reported per EMS, administered ativan prior to arrival. Since admission [facility], VSS. Pt started on Keppra 1500 mg, depacon 500 mg BID, vimpat 50 mg BID, Klonopin 0.5 mg Q8H prn. CXR obtained and without acute cardiopulmonary process identified. Pt w decreased UOP and unable obtain UA. Pt was bolused and started maintenance fluids. cEEG significant for focal status epilepticus. AM of 05/10 Pt was given 2 mg ativan, Keppra increased to 2 g BID, received load vimpat 200 mg but still kept 50 mg BID dose, and continued on depacon. Also got additional 1 g Keprra, 1 g solumedrol, and 2 mg ativan in afternoon for continued Sz activity. NGT placed and started TFs. ?? Hospital Course: 05/11: -Continued focal status/ Sz activity yesterday/overnight. Increased Vimpat to 200 mg BID and gave ativan 2 mg. -S/p repeat MRI brain this AM, findings suggestive of focal status. Recieved additional 1 mg ativanprior to MRI -Continues to be in focal status this AM although appears improved from admission. During assessment noted fixed left gaze deviation for 30 seconds followed by right gaze deviation for brief time afterwards. While gaze deviated left pt was not following commands or responding but was able to squeeze hand on commands during episode right sided gaze deviation. Gave additional 1 g solumedrol, 2 mg ativan, fosphenytoin load, and increased depacon/ depakote to 750 mg BID. -UOP slightly improved. Nursing noted as malodorous. UA positive for UTI, started on ceftriaxone. 05/12: Pulled NG tube out. More awake. Overnight/ Interval Events: Episode of tachycardia to 168 overnight. Not documented in vital signs but apparently was confirmedat bedside via RN. No associated chest pain or difficulty breathing. Trops x 2 and CK-mb negative. Telemetry from overnight shows runs of tachycardia. Objective: BP 146/97 Pulse 79 Temp 98.3 ??F (36.8 ??C) (Oral) Resp 18 Ht 1.803 m (5' 11 ) Wt 57.6 kg (127 lb) SpO2 99% BMI 17.71 kg/m2 Temp (30hrs) Max:98.7 ??F (37.1 ??C) Body mass index is 17.71 kg/m??. Exam: Con - frail and cachectic, NAD, somnolent Heent - NCAT, dry mucous membranes, anicteric sclera Neck - No JVD, neck supple trachea midline CV - RRR, + apical systolic murmur Pulm - CTAB, no w/r/r Abd - BS+, soft, NT/ND Ext: No c/c/e, palpable peripheral pulses Cortical Function Mental Status Awake, interacts Orientation Self only Language Follows simple commands Visual Ivan EARNEST Neglect No tactile or visual neglect Cranial Nerves II Pupils 3 mm and bilaterally reactive to light. Fundoscopic exam not performed. VIII Hearing intact III/IV/ No gaze palsies, moving eyes in all directions IX/X left deviation of uvula with palate elevation V Facial sensation intact XI Head turning intact VII No facial droop XII Tongue midline Motor Function Movement No abnormal movements Bulk cachectic Tone No abnormalities noted Proximal Upper Distal Upper Proximal Lower Distal Lower Right 4/5 4/5 4/5 4/5 Left 3/5 3/5 3/5 3/5 Muscle Stretch Reflexes BI TRI BR PAT ACH TOES Right 3 3 3 3 3 Down Left 3 3 3 3 3 Down Sensory Light Touch intact Noxious Stimuli intact Temperature Not tested Pallesthesia Not tested Cerebellar Deferred Gait Deferred Labs: Recent Results (from the past 24 hour(s)) GLUCOSE - POINT OF CARE Collection Time: 05/14/19 11:49 AM Result Value Ref Range Glucose 133 (H) 70 - 115 mg/dL Specimen Type Arterial/Capillary GLUCOSE - POINT OF CARE Collection Time: 05/14/19 4:19 PM Result Value Ref Range Glucose 127 (H) 70 - 115 mg/dL Specimen Type Arterial/Capillary EKG 12-LEAD Collection Time: 05/14/19 8:23 PM Result Value Ref Range Ventricular Rate 97 BPM Atrial Rate 97 BPM P-R Interval 130 ms QRS Duration ms 86 ms Q-T Interval ms 342 ms QTC Calculation (Bezet) 434 ms Calculated P [place] 76 degrees Calculated R [place] 41 degrees Calculated T [place] 91 degrees Interpretation EKG NORMAL SINUS RHYTHM SEPTAL INFARCT , AGE UNDETERMINED ABNORMAL ECG WHEN COMPARED WITH ECG OF 13-MAY-2019 18:23, MANUAL COMPARISON REQUIRED, DATA IS UNCONFIRMED GLUCOSE - POINT OF CARE Collection Time: 05/14/19 9:01 PM Result Value Ref Range Glucose 94 70 - 115 mg/dL Specimen Type Arterial/Capillary TROPONIN I Collection Time: 05/14/19 9:52 PM Result Value Ref Range Troponin I <0.010 <0.032 ng/mL GLUCOSE - POINT OF CARE Collection Time: 05/15/19 12:24 AM Result Value Ref Range Glucose 87 70 - 115 mg/dL Specimen Type Arterial/Capillary GLUCOSE - POINT OF CARE Collection Time: 05/15/19 4:14 AM Result Value Ref Range Glucose 96 70 - 115 mg/dL Specimen Type Arterial/Capillary GLUCOSE - POINT OF CARE Collection Time: 05/15/19 7:54 AM Result Value Ref Range Glucose 107 70 - 115 mg/dL Specimen Type Arterial/Capillary BASIC METABOLIC PANEL (CALCIUM TOTAL) Collection Time: 05/15/19 9:11 AM Result Value Ref Range BUN 12 7 - 26 mg/dL Creatinine 0.8 0.6 - 1.2 mg/dL Sodium 140 136 - 145 mmol/L Potassium 3.9 3.5 - 4.5 mmol/L Chloride 102 98 - 107 mmol/L CO2 25 22 - 29 mmol/L Glucose 97 70 - 115 mg/dL Calcium 9.5 8.4 - 10.2 mg/dL Anion Gap 17 8 - 18 BUN/Creatinine Ratio 15 7 - 23 Osmolality Calculated 290 270 - 300 mOsm/kg eGFR >60 >60 mL/min/1.73 m2 MAGNESIUM BLOOD Collection Time: 05/15/19 9:11 AM Result Value Ref Range Magnesium 1.9 1.6 - 2.6 mg/dL PHOSPHORUS BLOOD Collection Time: 05/15/19 9:11 AM Result Value Ref Range Phosphorus 3.0 2.3 - 4.7 mg/dL TROPONIN I Collection Time: 05/15/19 9:11 AM Result Value Ref Range Troponin I <0.010 <0.032 ng/mL CK + CKMB PANEL Collection Time: 05/15/19 9:11 AM Result Value Ref Range CK Total 63 30 - 200 Units/L CK-MB 0.8 0.0 - 6.6 ng/mL cEEG 05/12/2019 IMPRESSION This is an abnormal cEEG due to 1) focal onset seizures, 2) right hemispheric epileptiform discharges and lateralized periodic discharges (LPDs), 3) lateralized right hemispheric slowing, and 4) moderate generalized slowing. ?? CLINICAL CORRELATION: This study is suggestive of focal onset seizures, increased tendency toward seizures, lateralized right hemispheric dysfunction, and moderate encephalopathy. Between 05/09/2019 to 05/10/2019, the patient had frequent focal onset seizures of right hemispheric or midline onset, consistent with focal s tatus epilepticus, with clinical correlation in the form of oral automatism or left facial twitching. Between 05/10/2019 to 05/11/2019, there continued to be focal status epilepticus, with some degree of improvement in the form of less propagation. ?? Between 05/11/2019 to 05/12/2019, the electrographic seizures dissipated, replaced by predominantlyleft central discharges and LPDs. Last electrographic seizure was identified at 09:33 AM on 05/11/2019. MRI brain: IMPRESSION: ?? Large area of cortical signal abnormality involving [...] inverted papilloma or other nonaggressive sinus lesion. Assessment and Plan: Mr. Bi Tabor is a 59M who presented from OSH in status epilepticus. Patient was loaded with AED'sand has been without seizure for multiple days. Patient's presentation likely due to medication non-compliance. His seizure status is now stable. Now taking oral and can be discharged to return to SNF. Family wants patient to go to a different facility as they have concerns with patient receiving medication where he was before. #Post stroke epilepsy c/b frequent breakthrough Sz - Likely due to medication non-compliance??exacerbated by UTI -S/p methypred 1 g, ativan 2 mg, fosphenytoin 1150 mg load (05/11) -Continue Levetiracetam 2000mg BID -Continue Depakote 750 mg BID -Continue Lacosamide 200mg BID -clonazepam 0.5mg PRN for clusters -Fall and seizure precautions -Routine neuro and vital checks #Paroxysmal tachycardia - seen on overnight telemetry - patient asymptomatic during tachycardia - troponin and CK-mb not elevated - monitor for now #UTI, resolved - s/p Ceftriaxone x 3days (end date 05/13) -Bladder scans, straight cath prn -Strict I/Os #Hx of Ischemic Stroke -Continue ASA, atorvastatin 20mg ?? #Hx of EtOH use - Thiamine 500 mg IV TID x3 days (end date 05/14) - Continue folate ?? #HTN - continue amlodipine 5 mg daily ?? #Hx of B12 deficiency - Continue B12 1000mcg daily #Nutrition: - now on oral diet - Accuchecks Case discussed with Attending Physician, Dr. CHERI Lawrence MD Neurology Resident RNITY FLOOR SUPERVISOR Associated attestation - Sadiq Smith MD - 05/16/2019 9:51 AM MATERNITY FLOOR SUPERVISOR I have examined the patients and discussed the findings of my examination with the patient and the resident. I agree with the resident regarding the assessment and plan of care. * Ashlee Izquierdo RN - 05/15/2019 9:58 AM CST Pt AOxperson, place, situation with cueing. Pt ate 100% of breakfast this morning. NG and mitten restrictions were removed at 0950. RNITY FLOOR SUPERVISOR * Michaela Govea RD/NOLAN - 05/15/2019 9:51 AM CST Nutrition Re-Assessment Nutrition Recommendations: Continue pureed diet Ensure Enlive (1.5 Bruno) (350 kcals, 20 g Pro, 44 g carbohydrate) Comments: Pt seen for f/u. Passed DIRECTOR FURNITURE eval on 05/14 for pureed diet. Previously on TF d/c on 05/11.Per RN note pt eating 90% of pureed diet. Last BM 05/07, pt may benefit from bowel regimen if this is accurate. RD adding Ensure Enlive TID to increase intakes on current diet. If intakes become inadequate, RD recommends restarting TF. RD will continue to monitor. Assessment: Med/Surg History and Clinical Diagnoses: seizure; PMH: EtOH use, HTN, and post stroke Epilepsy Diet order accuracy Current diet order: Cardiac Standard;Pureed (4) (DYS 1) Current tube feeding order: Promote Nutrition recommendation: agree with current nutrition order P.O.Intake for the past 48 hrs:No data recorded Food Allergies: No known food allergies GI Concerns: None Chewing/Swallowing: Other (Comment)(not appropriate for PO ) Pain affecting intake: No Admission weight: Weight: 127 lb (57.6 kg) (05/10/19 1400) Filed Wts: 05/10/19 1400 Weight: 127 lb (57.6 kg) WT Comments: Height: 5' 11 (180.3 cm) IBW/lb (Calculated) Male: 89 , Laboratory values reviewed. Medications noted. Skin/Wound: intact Estimated Energy Needs: KCAL: 3107-6822(30-35 kcal/kg 57.6 kg ) Protein (g): 80-90(1.4-1.6 g/kg 57.6 kg; BMI) Fluid (ml): 1ml/kcal Needs based on: Kcal/kg- (Comment) Recommended Access Route: TF Education needed: None Education Provided: Not indicated Nutrition Care Process (1) Nutrition Diagnostic Statement: Inadequate oral intake related to:: decreased ability to consume or tolerate food and/or fluids due to illness as evidenced by:: oral intake insufficient to meet estimated requirements Nutrition Diagnostic Statement Progress: Nutrition problem continues Nutrition Intervention: Medical Food Supplements: Monitoring: PO intake, supplement tolerance, nutrition labs, wt, BM's, I's&O's Evaluation: Nutrition Goal: Total intake will meet estimated nutrient needs Nutrition Goal Timeframe: Ongoing Nutrition Goal Progress: Continue with current goal Michaela Govea RD/NOLAN RNITY FLOOR SUPERVISOR * Juan Diego Lutz - 05/15/2019 7:58 AM CST Neurology Progress Note Patient: Bi Tabor Room: 521 Age: [age] year old Date of Encounter: 05/15/2019 HPI: Bi Tabor is a 59 year old male with PMHx of R occipital ischemic stroke in 2015, EtOH use, HTN, and post stroke epilepsy who presented from an OSH for management of breakthrough seizures. History per initial consult: Patient initially presented to OSH 05/04/19 with 5 breakthrough seizures in a 30 minute period. Episodes described as dyscognitive events with possible left gaze preference lasting approximately 30 seconds. No abnormal movements noted. Patient reportedly returned to baseline between events. Initial labs at OSH er with WBC 9.5, BMP unremarkable. VPA level 56.1. UDS BZD+ only. Patient reportedly with continued seizure events this admission despite increase of levetiracetam to prior 1500mg BID [home dose actually 2 g BID]. Evaluation with EEG showing right sided discharges, though formal read not in OSH records. MRI brain also obtained showing diffusion restrictionin Right occipital and parietal lobes as well as small area in right frontal lobe and thalamus. Right hippocampal atrophy also noted. CUS also obtained showing no significant stenosis. Patient discussed with stroke attending via transfer line, MRI findings felt likely to be post ictal, later discussed with general attending and accepted for seizure management. ?? En route patient with repeat seizure event reported per EMS, administered ativan prior to arrival. Since admission [facility], VSS. ?? Pt started on Keppra 1500 mg, depacon 500 mg BID, vimpat 50 mg BID, Klonopin 0.5 mg Q8H prn. CXR obtained and without acute cardiopulmonary process identified. Pt w decreased UOP and unable obtain UA. Pt was bolused and started maintenance fluids. cEEG significant for focal status epilepticus. AM of 05/10 Pt was given 2 mg ativan, Keppra increased to 2 g BID, received load vimpat 200 mg but still kept 50 mg BID dose, and continued on depacon. Also got additional 1 g Keprra, 1 g solumedrol, and 2 mg ativan in afternoon for continued Sz activity. NGT placed and started TFs. Interval History: Patient was reportedly tachycardic up to 168. Troponin 1 taken and was within normal limits. EKG performed and showed normal sinus rhythm with an age undetermined septal infarct. This morning patientdenied chest pain, palpitations, and shortness of breath. Speech recommends pureed diet. No seizure activity noted overnight. Allergies: No Known Allergies Home Medications: Current Facility-Administered Medications: 0.9% NaCl injection 3 mL And 0.9% NaCl injection 1-10 mL amLODIPine (NORVASC) tablet 5 mg aspirin chew tablet 81 mg atorvastatin (LIPITOR) tablet 20 mg clonazePAM (KlonoPIN) tablet 0.5 mg cyanocobalamin (VITAMIN B-12) tablet 1,000 mcg dextrose 10% infusion dextrose IV 12.5-25 g valproate (DEPACON) 750 mg in 0.9% NaCl 57.5 mL IVPB Or divalproex DR (DEPAKOTE) tablet 750 mg folic acid (FOLVITE) tablet 1 mg glucagon (GLUCAGEN) injection 1 mg glucose (Diabetic Use) oral gel heparin injection 5,000 Units insulin aspart (NovoLOG) pen 0-6 Units lacosamide (VIMPAT) tablet 200 mg levETIRAcetam (KEPPRA) tablet 2,000 mg nicotine (NICODERM CQ) patch 7 mg tamsulosin (FLOMAX) capsule 0.4 mg PMH: Past Medical History: No date: CVA (cerebral vascular accident) No date: HTN (hypertension) No date: Seizure Family History: No family history on file. Social History: Social History Socioeconomic History Marital status: Single Spouse name: Not on file Number of children: Not on file Years of education: Not on file Highest education level: Not on file Occupational History Not on file Social Needs Financial resource strain: Not on file Food insecurity: Worry: Not on file Inability: Not on file Transportation needs: Medical: Not on file Non-medical: Not on file Tobacco Use Smoking status: Current Every Day Smoker Packs/day: 1.00 Years: 15.00 Pack years: 15 Smokeless tobacco: Never Used Substance and Sexual Activity Alcohol use: No Comment: last drink 2015 Drug use: No Comment: occasional Sexual activity: Not Currently Lifestyle Physical activity: Days per week: Not on file Minutes per session: Not on file Stress: Not on file Relationships Social connections: Talks on phone: Not on file Gets together: Not on file Attends denominational service: Not on file Active member of club or organization: Not on file Attends meetings of clubs or organizations: Not on file Relationship status: Not on file Intimate partner violence: Fear of current or ex partner: Not on file Emotionally abused: Not on file Physically abused: Not on file Forced sexual activity: Not on file Other Topics Concerns: Not on file Social History Narrative Not on file Physical Exam: Vitals: -- 05/14/19 05/14/19 05/14/19 05/15/19 1557 2105 2358 0410 -- BP: 137/87 129/97 117/78 153/93 Pulse: 87 85 90 79 Resp: 20 18 20 18 Temp: 98.3 ??F (36.8 ??C) 97.8 ??F (36.6 ??C) 98.2 ??F (36.8 ??C) 97.9 ??F (36.6 ??C) SpO2: 97% 98% 98% 100% Weight: Height: -- Exam: Cortical Function: MS: Awake, follows simple commands Oriented to Person only Language: Dysarthric, follows simple commands VF: EARNEST Neglect No visual neglect, No tactile neglect Cranial Nerves: Pupils 3 mm BRTL, Full EOM, No ptosis or nystagmus Facial sensation intact bilaterally to LT; No facial palsy; Normal tongue protrusion Motor: Abnormal Movements: None Bulk: cachetic Tone: Normal Strength: RUE 4/5 RLE 45 LUE 3/5 LLE 3/5 DTR: Bi Tri BR Pat Ach Toes R 3 3 3 3 3 Down L 3 3 3 3 3 Down Sensory: Intact to light touch Cerebellar: Deferred Gait: Deferred Labs: CBC: Component Name 05/14/19 05/13/19 05/12/19 0357 0415 0542 WBC 8.0 9.9 18.7* HGB 14.8 14.1 12.7* BMP: Component Name 05/14/19 05/13/19 05/12/19 0357 0415 0542 NA 140 140 140 CL 104 103 108* CO2 24 27 24 BUN 12 7 10 CREATININE 0.6 0.7 0.7 GLU 112 93 140* Component Name 05/14/19 05/13/19 05/12/19 0357 0415 0542 CALCIUM 9.7 9.1 8.5 PHOS 3.1 2.5 2.2* LFT: Component Name 01/24/19 01/22/19 01/14/19 0154 0425 0123 PROT 6.9 7.4 6.6 ALB 4.0 4.4 4.2 ALKPHOS 80 65 59 AST 13 14 22 ALT 10 12 15 Coagulation: Component Name 04/11/15 0622 PT 12.1 INR 0.9 Cardiac markers: Component Name 05/14/19 05/13/19 10/21/18 2152 2030 1231 TROPONINI <0.010 0.012 0.012 cEEG 05/12/2019 IMPRESSION This is an abnormal cEEG due to??1) focal onset seizures, 2) right hemispheric epileptiform discharges and lateralized periodic discharges??(LPDs), 3) lateralized right hemispheric slowing, and 4) moderate??generalized slowing. ?? CLINICAL CORRELATION: This study is suggestive of [...] improvement in the form of less propagation. ?? Between 05/11/2019 to 05/12/2019, the electrographic seizures dissipated, replaced by predominantlyleft central discharges and LPDs. ??Last electrographic seizure was identified at 09:33 AM on 05/11/2019. ?? MRI brain: IMPRESSION: ?? Large area of cortical signal abnormality involving [...] inverted papilloma or other nonaggressive sinus lesion. Assessment: Bi Tabor is a 59 year old male with PMHx of R occipital ischemic stroke in 2014, EtOH use, HTN, and post stroke epilepsy who presented from an OSH for management of breakthrough seizures. Seizure likely resulting from medication non-compliance. Seizure status is now stable. PT/OT pending. Discharge will be considered once patient is better tolerating oral intake. Plan: 1. Post stroke epilepsy/breakthrough seizures -Continue Levetiracetam 2000mg BID -Continue Depakote 750 mg BID -Continue Lacosamide 200mg BID -clonazepam 0.5mg PRN for clusters -Fall and seizure precautions -Neuro checks ?? 2. UTI, resolved - s/p Ceftriaxone x 3days (end date 05/13) ?? 3. History of ischemic stroke - Continue ASA - Continue atorvastatin 20mg ?? 4. History of alcohol use - Thiamine 500 mg IV TID x3 days (end date 05/14) - Continue folate ?? 5. HTN - Continue amlodipine 5 mg ?? 6. B12 deficiency - Continue B12 1000mcg daily ?? 7. Nutrition: - TFs per nutrition recs - DIRECTOR FURNITURE recommends pureed diet - Accuchecks Patient case findings discussed with Dr. Smith, Neurology Attending. Juan Diego Lutz, 3 05/15/2019 7:58 AM RNITY FLOOR SUPERVISOR * Rickie Haq RN - 05/14/2019 11:15 PM CST Continue to monitor patient. Patient is AAOX1, resting in bed. Impulsive RNITY FLOOR SUPERVISOR * Ashlee Izquierdo RN - 05/14/2019 5:38 PM CST Pt AOxperson, situation at times with cueing. Pt was able to eat 90% of pureed dinner. NG still intact. Will continue to monitor PO intake. RNITY FLOOR SUPERVISOR * Mandi Rodriguez SLP - 05/14/2019 11:49 AM CST [facility] Swallowing/Cognitive-Language Evaluation Patient: Bi Tabor [facility] Record Number: [id number] Date of : 1960 Age: [age] year old Patient Active Problem List: Seizure Headache, unspecified headache type Hyponatremia Past Medical History: Diagnosis Date ??? CVA (cerebral vascular accident) ??? HTN (hypertension) ??? Seizure Impressions: At the time of assessment, patient presenting with a moderate oral dysphagia characterized by disorganized bolus formation and transit and inconsistent acceptance appearing 2/2 to ongoing altered mental status/agitation. Pharyngeal phase appeared grossly WFL; hyolaryngeal elevation appeared timely and complete upon palpation with nil overt s/s aspiration noted w/ any trials [id number] sequential straw sips thin. Patient able to transit thin and puree well with nil overt difficulties, however required ++ encouragement to accept same due to altered state and agitation (appeared to be hallucinating ++ yelling constantly no! She! Give it to she! She's throwing up! ) while pushing spoon or cup away. Pointing to window yelling she! She! No her, she is throwing up! No give it to her . Suspect ability to meet nutritional requirements via PO may be impacted by current altered status/refusals-appears appropriate to initiate trial of PO diet as per below however would recommend consulting RD to ensure meetingnutritional requirements adequately w/ PO intake before removing NG. Swallow Recommendations: ?? Liquids: Thin ?? Diet: Puree (4)/DYS1 ?? Swallowing guidelines: 1) Feed only when awake, alert, and seated upright at 90 Degree; remain seated upright for 15 to 30minutes after intake. STOP feeding/eating if increased drowsiness/lethargy or decreased VIOLET/LOC noted. 2) Provide small, single bites/sips of controlled amounts at slow rate. 3) Requires full supervision and assistance with feeding and set-up of meals. 4) If any overt s/s of aspiration or adverse changes in respiratory status/temp/secretions observed, please discontinue feeding and notify MD/DIRECTOR FURNITURE for review. 5) Provide stringent oral care 3X/day in order to reduce oral pathogens and risk of aspiration +/- pneumonia from same. 6) Meds via NG or Crush/halve medications in puree ?? 11) check for oral residue +/- pocketing left/right after every few swallows.Provide a fluid wash to clear if any observed. ?? Recommended tests/consults: RD for nutritional support Current Diet: DIET NPO Except: NO EXCEPTIONS DIET TUBE FEEDING CONTINUOUS Discharge Recommendations: Deferred, pending medical course Frequency: Patient to be scheduled 5x/week while in hospital. Speech therapy is recommended to review tolerance/ swallow function. Subjective: Mental Status: Confused, agitated, appeared to be hallucinating. Following single step commands intermittently but very focused/perseverating on woman in room who was throwing up Pain: Patient has 0/10 pain reported by patient when asked multiple different times Baseline Diet/Swallowing History: unable to obtain from patient Objective: Oral Mechanism Exam: Limited 2/2 to poor participating/agitation ? ? Head &?Neck ROM: appeared WFL ??? Face (CN VII): appeared grossly WFL ??? Jaw (CN V): appeared grossly WFL ??? Lips (CN VII): appeared grossly WFL; nil overt asymmetry observed ??? Tongue (XII): appeared grossly WFL; nil overt asymmetry observed; appeared to protrude midline ??? Palate (CN IX, X): unable to assess ??? Resonance (CN IX) : appeared grossly WFL ??? Vocal quality (CN X) :appeared grossly WFL Pitch/Volume: WFL? Diadochokinetic rate: unable to assess ??? Intelligibility: decreased; some articulatory imprecision noted (~50-60%) ??? Dentition: upper and lower present in fair condition; missing partial front uppers ??? Oral dryness: mild ??? Volitional cough: unable to assess ??? Reflexibe cough: unable to assess Swallowing: ?? Breathing Status: Room air ?? Recent CXR/Imaging: nil focal consolidation ?? Tracheostomy Tube: N/A and ?? Patient was confused and agitated: evaluation was limited due to patient's decreased participation and minimal oral intake. ?? Positioning: Upright in bed ?? Trial Swallows: Thin liquids and Pureed; refused solid spitting out of mouth immediately ?? Oral Phase: appears impacted by current AMS with some oral retention/disorganzied bolus formation ?? Pharyngeal Phase: suspect/appears Grossly intact; hyolaryngeal elevation appeared timely and complete upon palpation and sustained during sequential sips. Nil second or double swallow noted to suggest impaired pharyngeal transit or abnormal pharyngeal residue present ?? Signs of Aspiration: No overt signs and symptoms of aspiration/penetration ?? Modifications: Repeat swallows and Alternate solids/liquids ?? Modifications appeared: Successful but not performed consistently to cue/command Speech/Voice: Decreased intelligibility in conversation; difficult to assess given confusion/agitation and query hallucination Language: ?? Receptive: not following commands/answering Q's consistently or appropriately ?? Expressive: unable to assess due to inability to participate in tasks/perseveration on woman throwing up Cognition: ?? Orientation: x0 ?? Attention: decreased ++ ?? Problem solving: unable to assess ?? Memory: unable to assess Assessment: Swallow: mild-mod oral dysphagia likely 2/2 AMS; pharyngeal phase appears WFL Behavior: Uncooperative, Agitated and Impulsive Cognitive-Communication: appears Decreased: Severe with further need for monitoring +/- eval Speech/Language: appears Decreased: Moderate with further need for monitoring +/- eval Other: Education: Nursing instructed in recommedations and indicated understanding. and Patient not appropriate for education at this time secondary to altered mental status or questionable understanding. Goals: ??? Short Term Goals: o Swallowing: Patient to demonstrate no clinical signs/symptoms of aspiration or difficulty swallowing with recommended diet. o Patient to demonstrate gains in swallow function as demonstrated by the ability to tolerate diet upgrade. o Cognition: Patient to follow 1 commands and/or basic yes/no questions. ??? Fpc Goal(s): LTG not set due to acute medical status. See STGs for patient's incremental progress. If patient is discharged from the facility, this note serves as a discharge note if further speech therapy visits did not occur. JOSIAS Garcia RNITY FLOOR SUPERVISOR * Brian Lawrence MD - 05/14/2019 10:46 AM CST Neurology Progress Note Patient: Bi Tabor Room: 521 Age: [age] year old Brief Hx: Per Dr. Sauer with amendments/ edits as appropriate Bi Tabor is a 59 year old M, with pmh notable for ischemic stroke (R occipital 2014), hx ofEtOH use, HTN, and post stroke Epilepsy, who presents as an OSH transfer for the management of breakthrough seizure. ?? Patient initially presented to OSH 05/04/19 with 5 breakthrough seizures in a 30 minute period. Episodes described as dyscognitive events with possible left gaze preference lasting approximately 30 seconds. No abnormal movements noted. Patient reportedly returned to baseline between events. Initial labs at OSH er with WBC 9.5, BMP unremarkable. VPA level 56.1. UDS BZD+ only. Patient reportedly with continued seizure events this admission despite increase of levetiracetam to prior 1500mg BID [home dose actually 2 g BID]. Evaluation with EEG showing right sided discharges, though formal read notin OSH records. MRI brain also obtained showing diffusion restriction in Right occipital and parieta l lobes as well as small area in right frontal lobe and thalamus. Right hippocampal atrophy also noted. CUS also obtained showing no significant stenosis. Patient discussed with stroke attending via transfer line, MRI findings felt likely to be post ictal, later discussed with general attending andaccepted for seizure management. ?? En route patient with repeat seizure event reported per EMS, administered ativan prior to arrival. Since admission [facility], VSS. Pt started on Keppra 1500 mg, depacon 500 mg BID, vimpat 50 mg BID, Klonopin 0.5 mg Q8H prn. CXR obtained and without acute cardiopulmonary process identified. Pt w decreased UOP and unable obtain UA. Pt was bolused and started maintenance fluids. cEEG significant for focal status epilepticus. AM of 05/10 Pt was given 2 mg ativan, Keppra increased to 2 g BID, received load vimpat 200 mg but still kept 50 mg BID dose, and continued on depacon. Also got additional 1 g Keprra, 1 g solumedrol, and 2 mg ativan in afternoon for continued Sz activity. NGT placed and started TFs. ?? Hospital Course: 05/11: -Continued focal status/ Sz activity yesterday/overnight. Increased Vimpat to 200 mg BID and gave ativan 2 mg. -S/p repeat MRI brain this AM, findings suggestive of focal status. Recieved additional 1 mg ativanprior to MRI -Continues to be in focal status this AM although appears improved from admission. During assessment noted fixed left gaze deviation for 30 seconds followed by right gaze deviation for brief time afterwards. While gaze deviated left pt was not following commands or responding but was able to squeeze hand on commands during episode right sided gaze deviation. Gave additional 1 g solumedrol, 2 mg ativan, fosphenytoin load, and increased depacon/ depakote to 750 mg BID. -UOP slightly improved. Nursing noted as malodorous. UA positive for UTI, started on ceftriaxone. 05/12: Pulled NG tube out. More awake. Overnight/ Interval Events: No acute events overnight. No seizure activity. Objective: BP 154/86 Pulse 79 Temp 98.7 ??F (37.1 ??C) (Oral) Resp 16 Ht 1.803 m (5' 11 ) Wt 57.6 kg (127 lb) SpO2 100% BMI 17.71 kg/m2 Temp (30hrs) Max:98.7 ??F (37.1 ??C) Body mass index is 17.71 kg/m??. Exam: General: Con - frail and cachectic, NAD, somnolent Heent - NCAT, dry mucous membranes, anicteric sclera Neck - No JVD, neck supple trachea midline CV - RRR, + apical systolic murmur Pulm - CTAB, no w/r/r Abd - BS+, soft, NT/ND Ext: No c/c/e, palpable peripheral pulses Cortical Function Mental Status Awake, interacts Orientation Self only Language Follows simple commands Visual Ivan EARNEST Neglect No tactile or visual neglect Cranial Nerves II Pupils 3 mm and bilaterally reactive to light. Fundoscopic exam not performed. VIII Hearing intact III/IV/ No gaze palsies, moving eyes in all directions IX/X left deviation of uvula with palate elevation V Facial sensation intact XI Head turning intact VII No facial droop XII Tongue midline Motor Function Movement No abnormal movements Bulk cachectic Tone No abnormalities noted Proximal Upper Distal Upper Proximal Lower Distal Lower Right 4/5 4/5 4/5 4/5 Left 3/5 3/5 3/5 3/5 Muscle Stretch Reflexes BI TRI BR PAT ACH TOES Right 3 3 3 3 3 Down Left 3 3 3 3 3 Down Sensory Light Touch intact Noxious Stimuli intact Temperature Not tested Pallesthesia Not tested Cerebellar Deferred Gait Deferred Labs: Recent Results (from the past 24 hour(s)) GLUCOSE - POINT OF CARE Collection Time: 05/13/19 11:17 AM Result Value Ref Range Glucose 99 70 - 115 mg/dL Specimen Type Arterial/Capillary GLUCOSE - POINT OF CARE Collection Time: 05/13/19 5:07 PM Result Value Ref Range Glucose 109 70 - 115 mg/dL Specimen Type Arterial/Capillary TROPONIN I Collection Time: 05/13/19 8:30 PM Result Value Ref Range Troponin I 0.012 <0.032 ng/mL GLUCOSE - POINT OF CARE Collection Time: 05/13/19 9:12 PM Result Value Ref Range Glucose 150 (H) 70 - 115 mg/dL Specimen Type Arterial/Capillary GLUCOSE - POINT OF CARE Collection Time: 05/14/19 1:10 AM Result Value Ref Range Glucose 114 70 - 115 mg/dL Specimen Type Arterial/Capillary CBC W AUTO DIFFERENTIAL Collection Time: 05/14/19 3:57 AM Result Value Ref Range WBC 8.0 3.5 - 10.5 10??3/uL RBC 4.72 4.30 - 5.70 10??6/uL Hemoglobin 14.8 13.5 - 17.5 g/dL Hematocrit 44.2 39.0 - 50.0 % MCV 93.6 81.0 - 97.0 fL MCH 31.4 28.0 - 34.0 pg MCHC 33.5 32.0 - 36.0 g/dL Platelet Count 190 150 - 400 10??3/uL RDW-SD 41.7 36.0 - 50.0 fL RDW-CV 11.9 11.2 - 14.8 % MPV 11.5 9.3 - 12.8 fL nRBC Absolute 0.00 0 10??3/uL nRBC Auto 0.0 0 /100 WBC Neutrophils % 61.2 35.0 - 70.0 % Lymphocytes % 30.4 19.7 - 55.1 % Monocytes % 7.7 3.0 - 15.0 % Eosinophils % 0.3 0.0 - 6.0 % Basophil % 0.1 0.0 - 1.5 % Neutrophils Absolute 4.9 1.6 - 7.0 10??3/uL Lymphocyte Absolute 2.4 0.8 - 2.9 10??3/uL Monocytes Absolute 0.61 0.14 - 0.66 10??3/uL Eosinophils Absolute 0.02 0.00 - 0.45 10??3/uL Basophils Absolute 0.01 0.00 - 0.06 10??3/uL Immature Granulocytes % 0.3 0.0 - 1.0 % BASIC METABOLIC PANEL (CALCIUM TOTAL) Collection Time: 05/14/19 3:57 AM Result Value Ref Range BUN 12 7 - 26 mg/dL Creatinine 0.6 0.6 - 1.2 mg/dL Sodium 140 136 - 145 mmol/L Potassium 3.7 3.5 - 4.5 mmol/L Chloride 104 98 - 107 mmol/L CO2 24 22 - 29 mmol/L Glucose 112 70 - 115 mg/dL Calcium 9.7 8.4 - 10.2 mg/dL Anion Gap 16 8 - 18 BUN/Creatinine Ratio 20 7 - 23 Osmolality Calculated 291 270 - 300 mOsm/kg eGFR >60 >60 mL/min/1.73 m2 MAGNESIUM BLOOD Collection Time: 05/14/19 3:57 AM Result Value Ref Range Magnesium 1.8 1.6 - 2.6 mg/dL PHOSPHORUS BLOOD Collection Time: 05/14/19 3:57 AM Result Value Ref Range Phosphorus 3.1 2.3 - 4.7 mg/dL GLUCOSE - POINT OF CARE Collection Time: 05/14/19 5:16 AM Result Value Ref Range Glucose 131 (H) 70 - 115 mg/dL Specimen Type Arterial/Capillary GLUCOSE - POINT OF CARE Collection Time: 05/14/19 8:53 AM Result Value Ref Range Glucose 114 70 - 115 mg/dL Specimen Type Arterial/Capillary cEEG 05/12/2019 IMPRESSION This is an abnormal cEEG due to 1) focal onset seizures, 2) right hemispheric epileptiform discharges and lateralized periodic discharges (LPDs), 3) lateralized right hemispheric slowing, and 4) moderate generalized slowing. ?? CLINICAL CORRELATION: This study is suggestive of focal onset seizures, increased tendency toward seizures, lateralized right hemispheric dysfunction, and moderate encephalopathy. Between 05/09/2019 to 05/10/2019, the patient had frequent focal onset seizures of right hemispheric or midline onset, consistent with focal s tatus epilepticus, with clinical correlation in the form of oral automatism or left facial twitching. Between 05/10/2019 to 05/11/2019, there continued to be focal status epilepticus, with some degree of improvement in the form of less propagation. ?? Between 05/11/2019 to 05/12/2019, the electrographic seizures dissipated, replaced by predominantlyleft central discharges and LPDs. Last electrographic seizure was identified at 09:33 AM on 05/11/2019. MRI brain: IMPRESSION: ?? Large area of cortical signal abnormality involving [...] inverted papilloma or other nonaggressive sinus lesion. Assessment and Plan: Mr. Bi Tabor is a 59M who presented from OSH in status epilepticus. Patient was loaded with AED'sand has been without seizure for > 24 hours. Patient's presentation likely due to medication non-compliance. His seizure status is now stable. Patient currently has an NG tube. Once he is able to take oral he can likely be discharged to return to SNF where he was residing. DIRECTOR [employer]URNITURE, PT/OT eval pending. #Post stroke epilepsy c/b frequent breakthrough Sz - Likely due to medication non-compliance??exacerbated by UTI -S/p methypred 1 g, ativan 2 mg, fosphenytoin 1150 mg load (05/11) -Continue Levetiracetam 2000mg BID -Continue Depakote 750 mg BID -Continue Lacosamide 200mg BID -clonazepam 0.5mg PRN for clusters -Fall and seizure precautions -Routine neuro and vital checks #UTI, resolved - s/p Ceftriaxone x 3days (end date 05/13) -Bladder scans, straight cath prn -Strict I/Os #Hx of Ischemic Stroke -Continue ASA, atorvastatin 20mg ?? #Hx of EtOH use - Thiamine 500 mg IV TID x3 days (end date 05/14) - Continue folate ?? #HTN - continue amlodipine 5 mg daily ?? #Hx of B12 deficiency - Continue B12 1000mcg daily #Nutrition: - TFs per nutrition recs - DIRECTOR FURNITURE eval pending - Accuchecks Case discussed with Attending Physician, Dr. CHERI Lawrence MD Neurology Resident RNITY FLOOR SUPERVISOR Associated attestation - Sadiq Smith MD - 05/15/2019 11:21 AM MATERNITY FLOOR SUPERVISOR I have examined the patients and discussed the findings of my examination with the patient and the resident. I agree with the resident regarding the assessment and plan of care. * Indio Ochoa RN - 05/14/2019 1:52 AM CST Problem: Seizures Goal: Seizures are under control or absent Outcome: Ongoing Problem: Fall Risk Goal: Patient will remain free of falls Outcome: Ongoing Problem: Safety related to restraint use Goal: Absence of injury while restrained Outcome: Ongoing RNITY FLOOR SUPERVISOR * Saloni King RN - 05/13/2019 3:29 PM CST Pt appears to be free of seizures this far on my shift. RN will continue to monitor and educate. RNITY FLOOR SUPERVISOR * Josiane Escobedo MD - 05/13/2019 11:39 AM CST Neurology Progress Note Patient: Bi Tabor Room: 521 Age: [age] year old Brief Hx: Per Dr. Sauer with amendments/ edits as appropriate Bi Tabor is a 59 year old M, with pmh notable for ischemic stroke (R occipital 2014), hx ofEtOH use, HTN, and post stroke Epilepsy, who presents as an OSH transfer for the management of breakthrough seizure. ?? Patient initially presented to OSH 05/04/19 with 5 breakthrough seizures in a 30 minute period. Episodes described as dyscognitive events with possible left gaze preference lasting approximately 30 seconds. No abnormal movements noted. Patient reportedly returned to baseline between events. Initial labs at OSH er with WBC 9.5, BMP unremarkable. VPA level 56.1. UDS BZD+ only. Patient reportedly with continued seizure events this admission despite increase of levetiracetam to prior 1500mg BID [home dose actually 2 g BID]. Evaluation with EEG showing right sided discharges, though formal read notin OSH records. MRI brain also obtained showing diffusion restriction in Right occipital and parieta l lobes as well as small area in right frontal lobe and thalamus. Right hippocampal atrophy also noted. CUS also obtained showing no significant stenosis. Patient discussed with stroke attending via transfer line, MRI findings felt likely to be post ictal, later discussed with general attending andaccepted for seizure management. ?? En route patient with repeat seizure event reported per EMS, administered ativan prior to arrival. Since admission [facility], VSS. Pt started on Keppra 1500 mg, depacon 500 mg BID, vimpat 50 mg BID, Klonopin 0.5 mg Q8H prn. CXR obtained and without acute cardiopulmonary process identified. Pt w decreased UOP and unable obtain UA. Pt was bolused and started maintenance fluids. cEEG significant for focal status epilepticus. AM of 05/10 Pt was given 2 mg ativan, Keppra increased to 2 g BID, received load vimpat 200 mg but still kept 50 mg BID dose, and continued on depacon. Also got additional 1 g Keprra, 1 g solumedrol, and 2 mg ativan in afternoon for continued Sz activity. NGT placed and started TFs. ?? Subjective: -Pt altered and unable to participate in subjective assessment. Shook head no slightly when asked if having pain or SOB although unclear how purposeful or reliable this was. 05/11: -Continued focal status/ Sz activity yesterday/overnight. Increased Vimpat to 200 mg BID and gave ativan 2 mg. -S/p repeat MRI brain this AM, findings suggestive of focal status. Recieved additional 1 mg ativanprior to MRI -Continues to be in focal status this AM although appears improved from admission. During assessment noted fixed left gaze deviation for 30 seconds followed by right gaze deviation for brief time afterwards. While gaze deviated left pt was not following commands or responding but was able to squeeze hand on commands during episode right sided gaze deviation. Gave additional 1 g solumedrol, 2 mg ativan, fosphenytoin load, and increased depacon/ depakote to 750 mg BID. -UOP slightly improved. Nursing noted as malodorous. UA positive for UTI, started on ceftriaxone. 05/12: Pulled NG tube out. More awake. Overnight/ Interval Events: No acute events overnight. More awake. No seizure activity. Objective: BP 132/82 Pulse 70 Temp 98.6 ??F (37 ??C) (Axillary) Resp 18 Ht 5' 11 Wt 127 lb SpO2 99% BMI 17.71kg/m2 Temp (30hrs) Max:98.6 ??F (37 ??C) Body mass index is 17.71 kg/m??. Exam: General: Con - frail and cachectic, NAD, somnolent, not appropriately interactive Heent - NCAT, dry mucous membranes, anicteric sclera Neck - No JVD, neck supple trachea midline CV - RRR, + apical systolic murmur Pulm - CTAB, no w/r/r Abd - BS+, soft, NT/ND Ext: No c/c/e, palpable peripheral pulses Cortical Function Mental Status Awake. Localizes. Follows some commands with right hand/ arm. Nodded head slightly with some questions this AM Orientation Self Language Mumbled this AM on questioning but extreme dysarthria and hypophonia Visual Ivan EARNEST Neglect EARNEST Cranial Nerves II Pupils 3 mm and bilaterally reactive to light. Fundoscopic exam not performed. VIII EARNEST III/IV/ EARNEST as pt not following commands well and intermittent fixed gaze deviation. IX/X EARNEST V EARNEST XI EARNEST VII EARNEST XII EARNEST Motor Function Movement EARNEST fully but pt withdraws all ext to pain Bulk Atrophic throughout Tone No abnormalities noted Proximal Upper Distal Upper Proximal Lower Distal Lower Right 4/5 4/5 4/5 4/5 Left 3/5 3/5 3/5 3/5 Muscle Stretch Reflexes BI TRI BR PAT ACH TOES Right 3 3 3 3 3 Down Left 3 3 3 3 3 Down Sensory Light Touch EARNEST Noxious Stimuli EARNEST Temperature Not tested Pallesthesia Not tested Cerebellar FNF FREEDOM HKS Right EARNEST Deferred EARNEST Left EARNEST Deferred EARNEST Gait Deferred Labs: Recent Results (from the past 24 hour(s)) GLUCOSE - POINT OF CARE Collection Time: 05/12/19 12:21 PM Result Value Ref Range Glucose 105 70 - 115 mg/dL Specimen Type Arterial/Capillary GLUCOSE - POINT OF CARE Collection Time: 05/12/19 4:58 PM Result Value Ref Range Glucose 126 (H) 70 - 115 mg/dL Specimen Type Arterial/Capillary GLUCOSE - POINT OF CARE Collection Time: 05/12/19 9:41 PM Result Value Ref Range Glucose 115 70 - 115 mg/dL Specimen Type Arterial/Capillary GLUCOSE - POINT OF CARE Collection Time: 05/13/19 12:17 AM Result Value Ref Range Glucose 110 70 - 115 mg/dL Specimen Type Arterial/Capillary GLUCOSE - POINT OF CARE Collection Time: 05/13/19 4:13 AM Result Value Ref Range Glucose 90 70 - 115 mg/dL Specimen Type Arterial/Capillary CBC W AUTO DIFFERENTIAL Collection Time: 05/13/19 4:15 AM Result Value Ref Range WBC 9.9 3.5 - 10.5 10??3/uL RBC 4.53 4.30 - 5.70 10??6/uL Hemoglobin 14.1 13.5 - 17.5 g/dL Hematocrit 42.8 39.0 - 50.0 % MCV 94.5 81.0 - 97.0 fL MCH 31.1 28.0 - 34.0 pg MCHC 32.9 32.0 - 36.0 g/dL Platelet Count 183 150 - 400 10??3/uL RDW-SD 41.5 36.0 - 50.0 fL RDW-CV 12.0 11.2 - 14.8 % MPV 12.4 9.3 - 12.8 fL nRBC Absolute 0.00 0 10??3/uL nRBC Auto 0.0 0 /100 WBC Neutrophils % 65.1 35.0 - 70.0 % Lymphocytes % 29.4 19.7 - 55.1 % Monocytes % 5.0 3.0 - 15.0 % Eosinophils % 0.1 0.0 - 6.0 % Basophil % 0.1 0.0 - 1.5 % Neutrophils Absolute 6.4 1.6 - 7.0 10??3/uL Lymphocyte Absolute 2.9 0.8 - 2.9 10??3/uL Monocytes Absolute 0.49 0.14 - 0.66 10??3/uL Eosinophils Absolute 0.01 0.00 - 0.45 10??3/uL Basophils Absolute 0.01 0.00 - 0.06 10??3/uL Immature Granulocytes % 0.3 0.0 - 1.0 % BASIC METABOLIC PANEL (CALCIUM TOTAL) Collection Time: 05/13/19 4:15 AM Result Value Ref Range BUN 7 7 - 26 mg/dL Creatinine 0.7 0.6 - 1.2 mg/dL Sodium 140 136 - 145 mmol/L Potassium 3.8 3.5 - 4.5 mmol/L Chloride 103 98 - 107 mmol/L CO2 27 22 - 29 mmol/L Glucose 93 70 - 115 mg/dL Calcium 9.1 8.4 - 10.2 mg/dL Anion Gap 14 8 - 18 BUN/Creatinine Ratio 10 7 - 23 Osmolality Calculated 288 270 - 300 mOsm/kg eGFR >60 >60 mL/min/1.73 m2 MAGNESIUM BLOOD Collection Time: 05/13/19 4:15 AM Result Value Ref Range Magnesium 2.0 1.6 - 2.6 mg/dL PHOSPHORUS BLOOD Collection Time: 05/13/19 4:15 AM Result Value Ref Range Phosphorus 2.5 2.3 - 4.7 mg/dL VALPROIC ACID LEVEL Collection Time: 05/13/19 4:15 AM Result Value Ref Range Valproic Acid Total 53 50 - 100 mcg/mL GLUCOSE - POINT OF CARE Collection Time: 05/13/19 9:39 AM Result Value Ref Range Glucose 104 70 - 115 mg/dL Specimen Type Arterial/Capillary GLUCOSE - POINT OF CARE Collection Time: 05/13/19 11:17 AM Result Value Ref Range Glucose 99 70 - 115 mg/dL Specimen Type Arterial/Capillary cEEG 05/12/2019 IMPRESSION This is an abnormal cEEG due to 1) focal onset seizures, 2) right hemispheric epileptiform discharges and lateralized periodic discharges (LPDs), 3) lateralized right hemispheric slowing, and 4) moderate generalized slowing. ?? CLINICAL CORRELATION: This study is suggestive of focal onset seizures, increased tendency toward seizures, lateralized right hemispheric dysfunction, and moderate encephalopathy. Between 05/09/2019 to 05/10/2019, the patient had frequent focal onset seizures of right hemispheric or midline onset, consistent with focal s tatus epilepticus, with clinical correlation in the form of oral automatism or left facial twitching. Between 05/10/2019 to 05/11/2019, there continued to be focal status epilepticus, with some degree of improvement in the form of less propagation. ?? Between 05/11/2019 to 05/12/2019, the electrographic seizures dissipated, replaced by predominantlyleft central discharges and LPDs. Last electrographic seizure was identified at 09:33 AM on 05/11/2019. MRI brain: IMPRESSION: ?? Large area of cortical signal abnormality involving [...] inverted papilloma or other nonaggressive sinus lesion. Assessment and Plan: #Post stroke epilepsy c/b frequent breakthrough Sz and current focal status epilepticus: - Likely due to medication non-compliance?? -S/p methypred 1 g, ativan 2 mg, fosphenytoin 1150 mg load (05/11) -Continue Levetiracetam 2000mg IV -Continue Depacon IV 750 mg BID -Continue Lacosamide 200mg BID IV -Continue clonazepam 0.5mg PRN q8h -Fall and seizure precautions -Routine neuro and vital checks #UTI - Continue 2g Ceftriaxone x 3days (end date 05/13) -Bladder scans, straight cath prn -Strict I/Os #Hx of Ischemic Stroke -Continue ASA, atorvastatin 20mg ?? #Hx of EtOH use - Thiamine 500 mg IV TID x3 days (end date 05/14) - Continue folate ?? #HTN - On amlodipine 5 mg daily ?? #Hx of B12 deficiency - Continue B12 1000mcg daily #Nutrition: - TFs per nutrition consult recs - Accuchecks Q6H Inpatient Checklist: Lines: PIV Prophylaxis: SQ heparin Diet: Strict NPO, TFs Activity: Activity as tolerated Code status: Full Code Disposition: Inpatient monitoring Seen and discussed with Attending Physician, Dr. CHERI Escobedo MD Neurology Resident RNITY FLOOR SUPERVISOR Associated attestation - Sadiq Smith MD - 05/14/2019 10:07 AM MATERNITY FLOOR SUPERVISOR I have examined the patients and discussed the findings of my examination with the patient and the resident. I agree with the resident regarding the assessment and plan of care. * Indio Ochoa RN - 05/13/2019 6:10 AM CST Problem: Seizures Goal: Seizures are under control or absent Outcome: Ongoing Problem: Fall Risk Goal: Patient will remain free of falls Outcome: Ongoing RNITY FLOOR SUPERVISOR * Yana Huang RN - 05/12/2019 2:25 PM CST Okay to leave ng out till speech evaluates patients swallow tomorrow. RNITY FLOOR SUPERVISOR * Darvin Cohen SLP - 05/12/2019 11:08 AM CST 05/12/19 1100 Missed Visit Missed Visit RN Cancel (Not appropriate due to lethargy) RN states that patient is not appropriate for swallow evaluation today secondary to lethargy. Patient has been inappropriate for evaluation for 3 days. Speech therapy will sign off at this time. Please re-consult when patient is appropriate. JOSIAS Choi 11:09 AM RNITY FLOOR SUPERVISOR * Josiane Escobedo MD - 05/12/2019 7:27 AM CST Neurology Progress Note Patient: Bi Tabor Room: 521 Age: [age] year old Brief Hx: Per Dr. Sauer with amendments/ edits as appropriate Bi Tabor is a 59 year old M, with pmh notable for ischemic stroke (R occipital 2015), hx ofEtOH use, HTN, and post stroke Epilepsy, who presents as an OSH transfer for the management of breakthrough seizure. ?? Patient initially presented to OSH 05/04/19 with 5 breakthrough seizures in a 30 minute period. Episodes described as dyscognitive events with possible left gaze preference lasting approximately 30 seconds. No abnormal movements noted. Patient reportedly returned to baseline between events. Initial labs at OSH er with WBC 9.5, BMP unremarkable. VPA level 56.1. UDS BZD+ only. Patient reportedly with continued seizure events this admission despite increase of levetiracetam to prior 1500mg BID [home dose actually 2 g BID]. Evaluation with EEG showing right sided discharges, though formal read notin OSH records. MRI brain also obtained showing diffusion restriction in Right occipital and parieta l lobes as well as small area in right frontal lobe and thalamus. Right hippocampal atrophy also noted. CUS also obtained showing no significant stenosis. Patient discussed with stroke attending via transfer line, MRI findings felt likely to be post ictal, later discussed with general attending andaccepted for seizure management. ?? En route patient with repeat seizure event reported per EMS, administered ativan prior to arrival. Since admission [facility], VSS. Pt started on Keppra 1500 mg, depacon 500 mg BID, vimpat 50 mg BID, Klonopin 0.5 mg Q8H prn. CXR obtained and without acute cardiopulmonary process identified. Pt w decreased UOP and unable obtain UA. Pt was bolused and started maintenance fluids. cEEG significant for focal status epilepticus. AM of 05/10 Pt was given 2 mg ativan, Keppra increased to 2 g BID, received load vimpat 200 mg but still kept 50 mg BID dose, and continued on depacon. Also got additional 1 g Keprra, 1 g solumedrol, and 2 mg ativan in afternoon for continued Sz activity. NGT placed and started TFs. ?? Subjective: -Pt altered and unable to participate in subjective assessment. Shook head no slightly when asked if having pain or SOB although unclear how purposeful or reliable this was. 05/11: -Continued focal status/ Sz activity yesterday/overnight. Increased Vimpat to 200 mg BID and gave ativan 2 mg. -S/p repeat MRI brain this AM, findings suggestive of focal status. Recieved additional 1 mg ativanprior to MRI -Continues to be in focal status this AM although appears improved from admission. During assessment noted fixed left gaze deviation for 30 seconds followed by right gaze deviation for brief time afterwards. While gaze deviated left pt was not following commands or responding but was able to squeeze hand on commands during episode right sided gaze deviation. Gave additional 1 g solumedrol, 2 mg ativan, fosphenytoin load, and increased depacon/ depakote to 750 mg BID. -UOP slightly improved. Nursing noted as malodorous. UA positive for UTI, started on ceftriaxone. Overnight/ Interval Events: Partially pulled NG tube. No acute events overnight. Patient more awake this am. Objective: BP 152/100 Pulse 95 Temp 98.2 ??F (36.8 ??C) (Axillary) Resp 18 Ht 5' 11 Wt 127 lb SpO2 100% BMI 17.71 kg/m2 Temp (30hrs) Max:98.2 ??F (36.8 ??C) Body mass index is 17.71 kg/m??. Exam: General: Con - frail and cachectic, NAD, somnolent, not appropriately interactive Heent - NCAT, dry mucous membranes, anicteric sclera Neck - No JVD, neck supple trachea midline CV - RRR, + apical systolic murmur Pulm - CTAB, no w/r/r Abd - BS+, soft, NT/ND Ext: No c/c/e, palpable peripheral pulses Cortical Function Mental Status Awake. Localizes. Follows some commands with right hand/ arm. Nodded head slightly with some questions this AM Orientation Self Language Mumbled this AM on questioning but extreme dysarthria and hypophonia Visual Ivan EARNEST Neglect EARNEST Cranial Nerves II Pupils 3 mm and bilaterally reactive to light. Fundoscopic exam not performed. VIII EARNEST III/IV/ EARNEST as pt not following commands well and intermittent fixed gaze deviation. IX/X EARNEST V EARNEST XI EARNEST VII EARNEST XII EARNEST Motor Function Movement EARNEST fully but pt withdraws all ext to pain Bulk Atrophic throughout Tone No abnormalities noted Proximal Upper Distal Upper Proximal Lower Distal Lower Right 4/5 4/5 4/5 4/5 Left 3/5 3/5 3/5 3/5 Muscle Stretch Reflexes BI TRI BR PAT ACH TOES Right 3 3 3 3 3 Down Left 3 3 3 3 3 Down Sensory Light Touch EARNEST Noxious Stimuli EARNEST Temperature Not tested Pallesthesia Not tested Cerebellar FNF FREEDOM HKS Right EARNEST Deferred EARNEST Left EARNEST Deferred EARNEST Gait Deferred Labs: Recent Results (from the past 24 hour(s)) URINALYSIS W/MICROSCOPIC NO CULTURE Collection Time: 05/11/19 8:03 AM Result Value Ref Range Color UA Yellow Straw, Yellow, Colorless Clarity UA Cloudy (Abnormal) Clear, Slt Cloudy Specific [place] UA 1.010 1.005 - 1.030 pH UA 6.0 5.0 - 8.0 pH Protein UA Negative Negative mg/dL Glucose UA 3+ (Abnormal) Negative mg/dL [place] UA Negative Negative mg/dL Bilirubin UA Negative Negative mg/dL Blood UA Negative Negative Nitrite UA Negative Negative Leukocyte Esterase 3+ (Abnormal) Negative Urobilinogen UA 4.0 (Abnormal) Negative mg/dL RBC UA 3-5 None Seen, 0-2, 3-5 /HPF WBC UA 21-50 (Abnormal) None Seen, 0-5 /HPF Bacteria UA 1+ (Abnormal) None, Trace /HPF Squamous Epithelial Cells UA None Seen None Seen, 0-2 /HPF Mucus UA 1+ None, 1+ /LPF GLUCOSE - POINT OF CARE Collection Time: 05/11/19 12:04 PM Result Value Ref Range Glucose 181 (H) 70 - 115 mg/dL Specimen Type Arterial/Capillary GLUCOSE - POINT OF CARE Collection Time: 05/11/19 6:07 PM Result Value Ref Range Glucose 247 (H) 70 - 115 mg/dL Specimen Type Arterial/Capillary GLUCOSE - POINT OF CARE Collection Time: 05/12/19 12:03 AM Result Value Ref Range Glucose 160 (H) 70 - 115 mg/dL Specimen Type Arterial/Capillary GLUCOSE - POINT OF CARE Collection Time: 05/12/19 4:26 AM Result Value Ref Range Glucose 157 (H) 70 - 115 mg/dL Specimen Type Arterial/Capillary CBC W AUTO DIFFERENTIAL Collection Time: 05/12/19 5:42 AM Result Value Ref Range WBC 18.7 (H) 3.5 - 10.5 10??3/uL RBC 4.05 (L) 4.30 - 5.70 10??6/uL Hemoglobin 12.7 (L) 13.5 - 17.5 g/dL Hematocrit 38.2 (L) 39.0 - 50.0 % MCV 94.3 81.0 - 97.0 fL MCH 31.4 28.0 - 34.0 pg MCHC 33.2 32.0 - 36.0 g/dL Platelet Count 156 150 - 400 10??3/uL RDW-SD 40.8 36.0 - 50.0 fL RDW-CV 11.9 11.2 - 14.8 % MPV 11.9 9.3 - 12.8 fL nRBC Absolute 0.00 0 10??3/uL nRBC Auto 0.0 0 /100 WBC Neutrophils % 81.0 (H) 35.0 - 70.0 % Lymphocytes % 12.4 (L) 19.7 - 55.1 % Monocytes % 5.8 3.0 - 15.0 % Eosinophils % 0.0 0.0 - 6.0 % Basophil % 0.1 0.0 - 1.5 % Neutrophils Absolute 15.2 (H) 1.6 - 7.0 10??3/uL Lymphocyte Absolute 2.3 0.8 - 2.9 10??3/uL Monocytes Absolute 1.08 (H) 0.14 - 0.66 10??3/uL Eosinophils Absolute 0.00 0.00 - 0.45 10??3/uL Basophils Absolute 0.02 0.00 - 0.06 10??3/uL Immature Granulocytes % 0.7 0.0 - 1.0 % BASIC METABOLIC PANEL (CALCIUM TOTAL) Collection Time: 05/12/19 5:42 AM Result Value Ref Range BUN 10 7 - 26 mg/dL Creatinine 0.7 0.6 - 1.2 mg/dL Sodium 140 136 - 145 mmol/L Potassium 4.1 3.5 - 4.5 mmol/L Chloride 108 (H) 98 - 107 mmol/L CO2 24 22 - 29 mmol/L Glucose 140 (H) 70 - 115 mg/dL Calcium 8.5 8.4 - 10.2 mg/dL Anion Gap 12 8 - 18 BUN/Creatinine Ratio 14 7 - 23 Osmolality Calculated 291 270 - 300 mOsm/kg eGFR >60 >60 mL/min/1.73 m2 MAGNESIUM BLOOD Collection Time: 05/12/19 5:42 AM Result Value Ref Range Magnesium 2.0 1.6 - 2.6 mg/dL PHOSPHORUS BLOOD Collection Time: 05/12/19 5:42 AM Result Value Ref Range Phosphorus 2.2 (L) 2.3 - 4.7 mg/dL cEEG 05/12/2019 IMPRESSION This is an abnormal cEEG due to 1) focal onset seizures, 2) right hemispheric epileptiform discharges and lateralized periodic discharges (LPDs), 3) lateralized right hemispheric slowing, and 4) moderate generalized slowing. ?? CLINICAL CORRELATION: This study is suggestive of focal onset seizures, increased tendency toward seizures, lateralized right hemispheric dysfunction, and moderate encephalopathy. Between 05/09/2019 to 05/10/2019, the patient had frequent focal onset seizures of right hemispheric or midline onset, consistent with focal s tatus epilepticus, with clinical correlation in the form of oral automatism or left facial twitching. Between 05/10/2019 to 05/11/2019, there continued to be focal status epilepticus, with some degree of improvement in the form of less propagation. ?? Between 05/11/2019 to 05/12/2019, the electrographic seizures dissipated, replaced by predominantlyleft central discharges and LPDs. Last electrographic seizure was identified at 09:33 AM on 05/11/2019. MRI brain: IMPRESSION: ?? Large area of cortical signal abnormality involving [...] inverted papilloma or other nonaggressive sinus lesion. 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 Med compliance unclear. Pt was being under dosed w Keppra at OSH and on initial admission which may have contributed to current presentation. Without evidence pulm infection. MRI findings most consistent with focal status and post ictal changes as well as other chronic changes. ?? -Continue cEEG -S/p methypred 1 g, ativan 2 mg, fosphenytoin 1150 mg load (05/11) -Continue Levetiracetam 2000mg IV (or PO) -Continue Depacon IV to 750 mg BID (or PO Depakote DR) -Continue Lacosamide 200mg BID -Continue clonazepam 0.5mg PRN q8h -Monitor and replete lytes -Fall and seizure precautions -Routine neuro and vital checks -Will consider LP to r/o DEMOLITION EXPERT infection if Sz remain uncontrolled #UTI - Continue 2g Ceftriaxone x3days -Renal function stable. No evidence retention -S/p bolus. On maintenance IVF. Consider d/c given now on TFs -Bladder scans, straight cath prn -Strict I/Os ?? #Acute drop Hgb: -Likely dilutional given IVF and TFs -Follow w serial CBCs -Follow stools, emesis for signs bleeding #Hx of Ischemic Stroke -Continue ASA, atorvastatin 20mg ?? #Hx of EtOH use - Thiamine 500 mg IV TID x3 days - Continue folate ?? #HTN - On amlodipine 5 mg daily ?? #Hx of B12 deficiency - Continue B12 1000mcg daily #Nutrition: - TFs per nutrition consult recs - Accuchecks Q6H Inpatient Checklist: Lines: PIV Prophylaxis: SQ heparin Diet: Strict NPO, TFs Activity: Activity as tolerated Code status: Full Code Disposition: Inpatient monitoring Seen and discussed with Attending Physician, Dr. CHERI Escobedo MD Neurology Resident RNITY FLOOR SUPERVISOR Associated attestation - Sadiq Smith MD - 05/13/2019 8:36 AM MATERNITY FLOOR SUPERVISOR I have seen and examined the patient with the resident and I agree with the findings and plan of care as documented by the resident. Date of Service: 05/12/19 Sadiq Smith MD * Indio Ochoa RN - 05/12/2019 3:26 AM CST Pt seizures will be controlled with medication regimen. Problem: Seizures Goal: Seizures are under control or absent Outcome: Ongoing Problem: Fall Risk Goal: Patient will remain free of falls Outcome: Ongoing RNITY FLOOR SUPERVISOR * Nacho Sauer MD - 05/12/2019 2:42 AM CST Neurology Plan of Care Patient partially removed NG per nursing report. Later replaced. Ordering XR KUB for placement and CXR for possible aspiration. Nacho Sauer MD Neurology Resident PGY-III RNITY FLOOR SUPERVISOR * Ciara Jaramillo SLP - 05/11/2019 3:36 PM CST [facility] Department of Physical Medicine & Rehabilitation Progress Note Patient: Bi Tabor Med Record Number: [id number] Date of : 1960 Age: [age] year old 05/11/19 1500 Missed Visit Missed Visit (Pt continues to have decreased alertness and is not a candidate for swallow evaluation at this time. Will continue to follow and complete assessment when pt more alert and participatory.) RNITY FLOOR SUPERVISOR * Angelina Gould MSW - 05/11/2019 1:40 PM CST SW continues to follow. Awaiting response from Cesilia Donahue for referral sent 05/10. CLARITA Guzman 05/11/2019 [id number] RNITY FLOOR SUPERVISOR * Devika Cross MD - 05/11/2019 7:23 AM CST Neurology Progress Note Patient: Bi Tabor Room: 521 Age: [age] year old Brief Hx: Per Dr. Sauer with amendments/ edits as appropriate Bi Tabor is a 59 year old M, with pmh notable for ischemic stroke (R occipital 2014), hx ofEtOH use, HTN, and post stroke Epilepsy, who presents as an OSH transfer for the management of breakthrough seizure. ?? Patient initially presented to OSH 05/04/19 with 5 breakthrough seizures in a 30 minute period. Episodes described as dyscognitive events with possible left gaze preference lasting approximately 30 seconds. No abnormal movements noted. Patient reportedly returned to baseline between events. Initial labs at OSH er with WBC 9.5, BMP unremarkable. VPA level 56.1. UDS BZD+ only. Patient reportedly with continued seizure events this admission despite increase of levetiracetam to prior 1500mg BID [home dose actually 2 g BID]. Evaluation with EEG showing right sided discharges, though formal read notin OSH records. MRI brain also obtained showing diffusion restriction in Right occipital and parieta l lobes as well as small area in right frontal lobe and thalamus. Right hippocampal atrophy also noted. CUS also obtained showing no significant stenosis. Patient discussed with stroke attending via transfer line, MRI findings felt likely to be post ictal, later discussed with general attending andaccepted for seizure management. ?? En route patient with repeat seizure event reported per EMS, administered ativan prior to arrival. Since admission SLU, VSS. Pt started on Keppra 1500 mg, depacon 500 mg BID, vimpat 50 mg BID, Klonopin 0.5 mg Q8H prn. CXR obtained and without acute cardiopulmonary process identified. Pt w decreased UOP and unable obtain UA. Pt was bolused and started maintenance fluids. cEEG significant for focal status epilepticus. AM of 12/12 Pt was given 2 mg ativan, Keppra increased to 2 g BID, received load vimpat 200 mg but still kept 50 mg BID dose, and continued on depacon. Also got additional 1 g Keprra, 1 g solumedrol, and 2 mg ativan in afternoon for continued Sz activity. NGT placed and started TFs. ?? Subjective: -Pt altered and unable to participate in subjective assessment. Shook head no slightly when asked if having pain or SOB although unclear how purposeful or reliable this was. Overnight/ Interval Events: -Continued focal status/ Sz activity yesterday/overnight. Increased Vimpat to 200 mg BID and gave ativan 2 mg. -S/p repeat MRI brain this AM, findings suggestive of focal status. Recieved additional 1 mg ativanprior to MRI -Continues to be in focal status this AM although appears improved from admission. During assessment noted fixed left gaze deviation for 30 seconds followed by right gaze deviation for brief time afterwards. While gaze deviated left pt was not following commands or responding but was able to squeeze hand on commands during episode right sided gaze deviation. Gave additional 1 g solumedrol, 2 mg ativan, fosphenytoin load, and increased depacon/ depakote to 750 mg BID. -UOP slightly improved. Nursing noted as malodorous -Tolerating TFs Objective: BP 144/83 Pulse 80 Temp 97.4 ??F (36.3 ??C) (Axillary) Resp 18 Ht 5' 11 Wt 127 lb SpO2 97% BMI 17.71 kg/m2 Temp (30hrs) Max:99.6 ??F (37.6 ??C) Body mass index is 17.71 kg/m??. Exam: General: Con - frail and cachectic, NAD, somnolent, not appropriately interactive Heent - NCAT, dry mucous membranes, anicteric sclera Neck - No JVD, neck supple trachea midline CV - RRR, + apical systolic murmur Pulm - CTAB, no w/r/r Abd - BS+, soft, NT/ND Ext: No c/c/e, palpable peripheral pulses Cortical Function Mental Status Somnolent but responsive to voice and painful stimuli. Localizes. Follows some commands with right hand/ arm. Nodded head slightly with some questions this AM Orientation x 0 Language Mumbled this AM on questioning but extreme dysarthria and hypophonia Visual Ivan EARNEST Neglect EARNEST Cranial Nerves II Pupils 3 mm and bilaterally reactive to light. Fundoscopic exam not performed. VIII EARNEST III/IV/ EARNEST as pt not following commands well and intermittent fixed gaze deviation. IX/X EARNEST V EARNEST XI EARNEST VII EARNEST XII EARNEST Motor Function Movement EARNEST fully but pt withdraws all ext to pain Bulk Atrophic throughout Tone No abnormalities noted Proximal Upper Distal Upper Proximal Lower Distal Lower Right 5/5 5/5 5/5 5/5 Left 5/5 5/5 5/5 5/5 Muscle Stretch Reflexes BI TRI BR PAT ACH TOES Right 3 3 3 3 3 Down Left 3 3 3 3 3 Down Sensory Light Touch EARNEST Noxious Stimuli EARNEST Temperature Not tested Pallesthesia Not tested Cerebellar FNF FREEDOM HKS Right EARNEST Deferred EARNEST Left EARNEST Deferred EARNEST Gait Deferred Labs: Recent Results (from the past 24 hour(s)) VITAMIN D 25-HYDROXY Collection Time: 05/10/19 8:32 AM Result Value Ref Range Vitamin D, 25 Hydroxy 28.9 (L) See comment: ng/mL GLUCOSE - POINT OF CARE Collection Time: 05/10/19 1:01 PM Result Value Ref Range Glucose 85 70 - 115 mg/dL Specimen Type Arterial/Capillary GLUCOSE - POINT OF CARE Collection Time: 05/10/19 6:07 PM Result Value Ref Range Glucose 105 70 - 115 mg/dL Specimen Type Arterial/Capillary CBC W AUTO DIFFERENTIAL Collection Time: 05/11/19 2:59 AM Result Value Ref Range WBC 5.2 3.5 - 10.5 10??3/uL RBC 4.10 (L) 4.30 - 5.70 10??6/uL Hemoglobin 12.7 (L) 13.5 - 17.5 g/dL Hematocrit 38.2 (L) 39.0 - 50.0 % MCV 93.2 81.0 - 97.0 fL MCH 31.0 28.0 - 34.0 pg MCHC 33.2 32.0 - 36.0 g/dL Platelet Count 161 150 - 400 10??3/uL RDW-SD 39.6 36.0 - 50.0 fL RDW-CV 11.6 11.2 - 14.8 % MPV 11.0 9.3 - 12.8 fL nRBC Absolute 0.00 0 10??3/uL nRBC Auto 0.0 0 /100 WBC Neutrophils % 80.6 (H) 35.0 - 70.0 % Lymphocytes % 18.6 (L) 19.7 - 55.1 % Monocytes % 0.4 (L) 3.0 - 15.0 % Eosinophils % 0.0 0.0 - 6.0 % Basophil % 0.0 0.0 - 1.5 % Neutrophils Absolute 4.2 1.6 - 7.0 10??3/uL Lymphocyte Absolute 1.0 0.8 - 2.9 10??3/uL Monocytes Absolute 0.02 (L) 0.14 - 0.66 10??3/uL Eosinophils Absolute 0.00 0.00 - 0.45 10??3/uL Basophils Absolute 0.00 0.00 - 0.06 10??3/uL Immature Granulocytes % 0.4 0.0 - 1.0 % BASIC METABOLIC PANEL (CALCIUM TOTAL) Collection Time: 05/11/19 2:59 AM Result Value Ref Range BUN 12 7 - 26 mg/dL Creatinine 0.7 0.6 - 1.2 mg/dL Sodium 137 136 - 145 mmol/L Potassium 4.0 3.5 - 4.5 mmol/L Chloride 104 98 - 107 mmol/L CO2 22 22 - 29 mmol/L Glucose 166 (H) 70 - 115 mg/dL Calcium 8.7 8.4 - 10.2 mg/dL Anion Gap 15 8 - 18 BUN/Creatinine Ratio 17 7 - 23 Osmolality Calculated 288 270 - 300 mOsm/kg eGFR >60 >60 mL/min/1.73 m2 MAGNESIUM BLOOD Collection Time: 05/11/19 2:59 AM Result Value Ref Range Magnesium 1.7 1.6 - 2.6 mg/dL PHOSPHORUS BLOOD Collection Time: 05/11/19 2:59 AM Result Value Ref Range Phosphorus 2.8 2.3 - 4.7 mg/dL GLUCOSE - POINT OF CARE Collection Time: 05/11/19 6:13 AM Result Value Ref Range Glucose 154 (H) 70 - 115 mg/dL Specimen Type Arterial/Capillary cEEG IMPRESSION This is an abnormal cEEG due to 1) focal onset seizures, 2) right hemispheric epileptiform discharges and lateralized periodic discharges, 3) lateralized right hemispheric slowing, and 4) moderate generalized slowing. ?? CLINICAL CORRELATION: This study is suggestive of focal onset seizures, increased tendency toward seizures, lateralized right hemispheric dysfunction, and moderate encephalopathy. Between 05/09/2019 to 05/10/2019, the patient had frequent focal onset seizures of right hemispheric or midline onset, consistent with focal s tatus epilepticus, with clinical correlation in the form of oral automatism or left facial twitching. Between 05/10/2019 to 05/11/2019, there continued to be focal status epilepticus, with some degree of improvement in the form of less propagation. MRI brain: IMPRESSION: ?? Large area of cortical signal abnormality involving [...] inverted papilloma or other nonaggressive sinus lesion. 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 Med compliance unclear. Pt was being under dosed w Keppra at OSH and on initial admission which may have contributed to current presentation. Without evidence pulm infection. Awaiting UA. While less likely, may have encephalitis or DEMOLITION EXPERT infection vs acute stroke. MRI findings most consistent with focal status and post ictal changes as well as other chronic changes. ?? -Continue cEEG -f/u UA -S/p methypred 1 g, ativan 2 mg, fosphenytoin 1150 mg load this AM -Continue Levetiracetam 2000mg IV (or PO) -Increase Depacon IV to 750 mg BID (or PO Depakote ) -Continue Lacosamide 200mg BID -Continue clonazepam 0.5mg PRN q8h -Monitor and replete lytes -Fall and seizure precautions -Routine neuro and vital checks -Will consider LP to r/o DEMOLITION EXPERT infection if Sz remain uncontrolled -If continues to be in status and no significant improvement, will likely need ICU level care #Decreased UOP-improving: -Renal function stable. No evidence retention. Dehydration? Infection? -S/p bolus. On maintenance IVF. Consider d/c given now on TFs -Bladder scans, straight cath prn -F/u UA, straight cath for specimen given incontinence -Strict I/Os ?? #Acute drop Hgb: -Likely dilutional given IVF and TFs -Follow w serial CBCs -Follow stools, emesis for signs bleeding #Hx of Ischemic Stroke -Continue ASA, atorvastatin 20mg ?? #Hx of EtOH use -Continue thiamine, folate ?? #HTN -Hold home amlodipine 5mg daily as BPs currently acceptable w systolic's 130-150s ?? #Hx of B12 deficiency -Continue B12 1000mcg daily #Nutrition: -TFs per nutrition consult recs -Accuchecks Q6H -Few elevated blood glucose levels >180. Can follow for today and if persistent consider start low dose SSI Inpatient Checklist: Lines: PIV Prophylaxis: SQ heparin Diet: Strict NPO, TFs Activity: Activity as tolerated Code status: Full Code Disposition: Inpatient monitoring Seen and discussed with Attending Physician, Dr. CHERI Cross MD Internal Medicine, PGY-3 RNITY FLOOR SUPERVISOR Associated attestation - Sadiq Smith MD - 05/11/2019 12:23 PM MATERNITY FLOOR SUPERVISOR I have seen and examined the patient with the resident and I agree with the findings and plan of care as documented by the resident. Date of Service: 05/11/2019 Sadiq Smith MD * Trista Macedo, RN - 05/10/2019 10:50 PM CST Pt still with seizure activity. Pt responds occasionally to squeezing right hand, however, overall does not follow commands and is hard to arouse. Safety level maintained, seizure precautions maintained. RNITY FLOOR SUPERVISOR * Devika Cross MD - 05/10/2019 12:18 PM CST Updates to A&P: -Pt noted to be in focal status this AM. S/p 2 mg ativan w resolve. Keppra 2 g given, along w scheduled depacon. Gave vimpat 200 mg x 1. Pt also not urinating and straight cath without any output. -Increase Keppra to 2 g BID starting tonight -Additional dose of Keppra 1 g x 1 this afternoon -Continue Vimpat 50 mg BID w/ first dose this afternoon (delayed AM dose because got loaded w 200 mg this AM) -Continue Depacon at current dose -Continue cEEG -Increase maintenance IVF to 75 ml/hr and bolus 500 ml given limited UOP -Bladder scans r/o retention-> so far no signs retention. Straight cath PRN for PVR > 300 ml -Condom cath and strict I/Os -Place NGT and start TFs, nutrition consult for TF recs -Will consider LP to rr/o DEMOLITION EXPERT infection if Sz remain uncontrolled -Rest per admission H&P Pt seen and discussed with attending physician Dr. SMITH RNITY FLOOR SUPERVISOR * Angelina Gould MSW - 05/10/2019 11:36 AM CST SW notified by project safety manager Elizabeth that patient's family would like him to transfer to [facility] at discharge. Referral faxed via [employer]. CLARITA Guzman 05/10/2019 [id number] RNITY FLOOR SUPERVISOR * Elizabeth Sullivan, ALFRED - 05/10/2019 11:30 AM CST Pt is new to my service today, 05/10/19. Case Management Initial Assessment Case Management screen completed & Welcome Letter given. Anticipated level of care at discharge: Unknown Discharge Plans: Pt's sister would like patient to not return to his current SNF, but transfer to [facility]. Pt's sister has visited several facilities and [facility] is her choice. Pt's sister understands patient will return to his current facility if arrangements with [facility] are not confirmed at discharge. CM to follow. Basic Needs Assessment (BNA) Score: 11 Complex Needs Assessment (POULTRY FARM SUPERVISOR) Score: 9 Social Support Domain Score: 0 Medical Status and Health Trajectory Domain Score: 9 Medical Home and Access to Services Domain Score: 0 Recommended Interventions for Patient:: Clerk Of Court Comment: Met with patient and patients sister. Lives with: Other (Comment)SNF Family Support (name and phone): Extended Emergency Contact Information Primary Emergency Contact: Amarjit Tabor [facility] Relation: Brother Secondary Emergency Contact: Adriane Hilliard Relation: Sister Anticipated Discharge Date: Unknown. Prior Level of Functioning: Dependant Anticipated level of care at discharge: Unknown Transportation at Discharge: Ambulance through [facility]. Transportation to MD appointments:other Equipment at Home: Lives at SNF. Additional equipment needed at home but does not have: SNF has all available equipment. If no PCP, action taken: Misael Maradiaga, Pharmacy benefit: Yes Clerk Of Court Referral: Yes. If patient requires HHC at discharge, he/she requests: No HHC. Pt is at SNF. Will continue to follow. For any questions or needs please contact: Electrical Machine Builder Name/Phone number: Elizabeth Sullivan RN RNITY FLOOR SUPERVISOR * Ciara Jaramillo, DIRECTOR FURNITURE - 05/10/2019 9:00 AM CST [facility] Department of Physical Medicine & Rehabilitation Progress Note Patient: Bi Tabor Med Record Number: [id number] Date of : 1960 Age: [age] year old 05/10/19 0900 Missed Visit Missed Visit RN Cancel (Nurse reported pt is not appropriate for swallow evaluation at this time. Will continue to follow and assess as indicated.) RNITY FLOOR SUPERVISOR * Trista Macedo RN - 05/10/2019 12:13 AM CST Pt nonverbal at this time. Responds to name occasionally, will look around room, and occasionally with squeeze right hand on command, however not consistently. Pt with EEG monitoring, seizure activity noted with staring and left side deviation along with eye twitching. Neuro notified. Seizure precautions maintained, pt on tele. Will continue to monitor. RNITY FLOOR SUPERVISOR * Trista Macedo RN - 05/09/2019 7:00 PM CST Pt arrived from OSH via EMS. Per EMS patient had seizure on stretcher so given ativan on route. Pt responds to painful stimuli, however is hard to arouse. Safety level maintained. Neuro made aware pthere. RNITY FLOOR SUPERVISOR documented in this encounter H&P Notes * Nacho Sauer MD - 05/09/2019 8:38 PM CST Neurology History and Physical Note Date of Encounter: 05/09/2019 Chief Complaint: Seizure Management HPI: Bi Tabor is a 59 year old M, with pmh notable for ischemic stroke (R occipital 2014), hx of EtOH use, HTN, and post stroke Epilepsy, who presents as an OSH transfer for the management of breakthrough seizure. Patient initially presented to OSH 05/04/19 with 5 breakthrough seizures in a 30 minute period. Episodes described as dyscognitive events with possible left gaze preference lasting approximately 30 seconds. No abnormal movements noted. Patient reportedly returned to baseline between events. Patient with reported compliance with medications at that time, no obvious signs of illness. (usual seizure frequency 2/month). Initial labs at OSH er with WBC 9.5, BMP unremarkable. VPA level 56.1. UDS BZD+ only. Patient reportedly with continued seizure events this admission despite increase of levetiracetam to prior 1500mg BID. Evaluation with EEG showing right sided discharges, though formal read not in paper chart. MRI brain also obtained showing diffusion restriction in Right occipital and parietal lobes as well as small area in right frontal lobe and thalamus. Right hippocampal atrophy also noted. CUS also obtained showing no significant stenosis. Patient discussed with stroke attending via transfer line, MRI findings felt likely to be post ictal, later discussed with general attending and accepted for seizure management. En route patient with repeat seizure event reported per EMS, administered ativan prior to arrival. Seizure History: AGE OF ONSET 50yo, coincides with ischemic stroke ?? SEMIOLOGY - Aura Tingling paresthesia - Ictus 1. Dyscongitive events 2. Convulsions, oral injury - Post-ictus Confusion, paranoia, aggression, may last days? ?? SEIZURE CONTROL Seizure frequency 1. Initially 1 event every 2 weeks, now unclear 2. Initially 1 event every 1 month, now unclear Seizure free interval Uncontrolled Date of last seizure 1. 05/09/2019 Action Plan - ?? MEDICATION Name Pill Size Frequency AED Level Start Levetiractam 1000 mg tab 2 - [address] 500 mg tab 1 - 1 Vimpat 50 tab 1 - 1 Clonazepam 0.5 mg tab PRN ?? COMPLIANCE Good ?? TREATMENT HISTORY Name [...] temporal??focal slowing, suggestive of underlinestructure/functional abnormalities. ?? IMAGIN07/2016 CT Brain: Focal area of encephalomalacia in the right occipital lobe 01/2018 MRI C-Spine showed multilevel C-stenosis ROS: EARNEST Allergies: No Known Allergies Home Medications: Current Facility-Administered Medications Medication ??? 0.9% NaCl infusion ??? 0.9% NaCl injection 3 mL And ??? 0.9% NaCl injection 1-10 mL ??? [START ON 05/10/2019] amLODIPine (NORVASC) tablet 5 mg ??? [START ON 05/10/2019] aspirin chew tablet 81 mg ??? [START ON 05/10/2019] atorvastatin (LIPITOR) tablet 20 mg ??? clonazePAM (KlonoPIN) tablet 0.5 mg ??? [START ON 05/10/2019] cyanocobalamin (VITAMIN B-12) tablet 1,000 mcg ??? divalproex DR (DEPAKOTE) tablet 500 mg Or ??? valproate (DEPACON) 500 mg in 0.9% NaCl 55 mL IVPB ??? [START ON 05/10/2019] folic acid (FOLVITE) tablet 1 mg ??? heparin injection 5,000 Units ??? lacosamide (VIMPAT) 50 mg in 0.9% NaCl 55 mL IVPB ??? levETIRAcetam (KEPPRA) 1,500 in 100 mL IVPB Or ??? levETIRAcetam (KEPPRA) tablet 1,500 mg ??? [START ON 05/10/2019] tamsulosin (FLOMAX) capsule 0.4 mg ??? [START ON 05/10/2019] thiamine (VITAMIN B-1) tablet 100 mg PMH: Past Medical History: Diagnosis Date ??? [...] file Gets together: Not on file Attends denominational service: Not on file Active member of [...] Social History Narrative ??? Not on file Physical Exam: There were no vitals filed for this visit. General :Adult male, lethargic, NAD, s/p ativan HEENT: Head normocephalic and atraumatic, no nuchal rigidity-neck supple Heart: Regular rate and rhythm without murmur Lungs: Clear to auscultation bilaterally Abdomen: Non-tender, non-distended Extremities: No cyanosis or edema noted Cortical Function: MS: Lethargic, arouses to noxious stimuli, briefly regards, does not follow commands, no language produced VF EARNEST Cranial Nerves: Pupils 3 mm BRTL, Full EOM, No ptosis or nystagmus Facial sensation intact bilaterally to LT; No facial palsy Hearing intact to finger rub bilaterally Palate symmetric; Normal tongue protrusion Motor: Abnormal Movements: None Bulk: Normal Tone: Normal Strength: Withdraws to noxious stimuli in all extremies DTR: Bi Tri BR Pat Ach Toes R 3 3 3 3 3 Down L 3 3 3 3 3 Down Sensory: Withdraws to noxious stimuli in all extremities Cerebellar: EARNEST Gait: EARNEST Assessment: #Epilepsy, post stroke #Seizure Patient with poorly controlled epilepsy, now with recurrent breakthrough seizures. Provoking factornot currently clear based on available outside records. Consider compliance vs. Infection vs. Ischemic stroke vs other all possible presently. Prior MRI felt most likely to show post-ictal changes. -cEEG -Continue Levetiracetam 1500mg IV (or PO) -Continue Depacon IV 500mg BID (or PO Depakote DR) -Continue Lacosamide 50mg BID -Clonazepam 0.5mg PRN q8h -Infectious evaluation with UA, CXR, CBC -Monitor and replete lytes -Fall and seizure precautions -Routine neuro and vital checks #Hx of Ischemic Stroke -Continue ASA, atorvastatin 20mg #Hx of EtOH use -Continue thiamine, folate #HTN -Home amlodipine 5mg daily #Hx of B12 deficiency -Continue B12 1000mcg daily Dispo: Inpatient monitoring, PT/OT when mentation improved Diet: NPO, pending nursing swallow evaluation PPx: Sqh, SCD Case findings to be discussed with Dr. Smith, Neurology Attending. Nacho Sauer MD Neurology Resident RNITY FLOOR SUPERVISOR Associated attestation - Sadiq Smith MD - 05/10/2019 12:11 PM MATERNITY FLOOR SUPERVISOR I have examined the patients and discussed the findings of my examination with the patient and the resident. I agree with the resident regarding the assessment and plan of care. Will Continue cEEG to guide adjusting AEDs re: ongoing refractory focal seizures. Increase Keppra and load vimpat today. Continue Depakote. Will consider ativan as needed. documented in this encounter Procedure Notes * Ck Feliciano MD - 05/12/2019 11:59 AM CSTAssociated Order(s): EEG VIDEO MONITORING EEG REPORT Patient Name: Bi Tabor EEG#: [id number] Start Time: 22:46 PM 05/09/2019 Stop Time: 11:35 AM 05/12/2019 Clinical History: Bi Tabor is a 59 year old male with seizures. This continuous video EEG monitoring is ordered to evaluate for seizures in the setting of altered mental status. Current medications Current Facility-Administered Medications Medication ??? 0.9% NaCl infusion ??? 0.9% NaCl injection 3 mL And ??? 0.9% NaCl injection 1-10 mL ??? amLODIPine (NORVASC) tablet 5 mg ??? aspirin chew tablet 81 mg ??? atorvastatin (LIPITOR) tablet 20 mg ??? clonazePAM (KlonoPIN) tablet 0.5 mg ??? cyanocobalamin (VITAMIN B-12) tablet 1,000 mcg ??? divalproex DR (DEPAKOTE) tablet 500 mg Or ??? valproate (DEPACON) 500 mg in 0.9% NaCl 55 mL IVPB ??? folic acid (FOLVITE) tablet 1 mg ??? heparin injection 5,000 Units ??? lacosamide (VIMPAT) 50 mg in 0.9% NaCl 55 mL IVPB ??? levETIRAcetam (KEPPRA) 1,500 in 100 mL IVPB Or ??? levETIRAcetam (KEPPRA) tablet 1,500 mg ??? tamsulosin (FLOMAX) capsule 0.4 mg ??? thiamine (VITAMIN B-1) tablet 100 mg Description This is a continuous video EEG monitoring is 21-channels; consisting of 20 channels of EEG obtainedfrom electrodes placed on the scalp according to the international 10-20 system, T1 and T2 electrodes, and one channel of EKG monitoring. Background: 05/09/2019 @ 22:46 PM to 05/10/2019 [...] right hemispheric onset continued to be observed. These seizures less commonly propagated to contralateral hemisphere. Clinical semiology were observed in the form of [...] right hemispheric onset continued to be observed. These seizures exhibited less degree of propagation compared to prior segment. 05/11/2019 @ 08:19 AM to 05/12/2019 @ 06:51 AM The background initially consisted of poorly-organized admixed polymorphic theta and delta frequency of normal amplitude, more visible over the left. Variability was present. Reactivity was present. Normal sleep architecture was not seen. The background later transitioned to predominantly moderately-organized theta frequency of normal amplitude, more visible over the left. There was gradual reduction of electrographic seizures, with last electrographic seizure occurring at 09:33 AM on 05/11/2019. There were remnant midline BIRDs that later disspitated. There continuedto be frequent right central epileptiform discharges (C4) [...] lateralized right hemispheric dysfunction, and moderate encephalopathy. Between 05/09/2019 to 05/10/2019, the patient had frequent focal onset seizures of right hemispheric or midline onset, consistent with focal s tatus epilepticus, with clinical correlation in the form of oral automatism or left facial twitching. Between 05/10/2019 to 05/11/2019, there continued to be focal status epilepticus, with some degree of improvement in the form of less propagation. Between 05/11/2019 to 05/12/2019, the electrographic seizures dissipated, replaced by predominantlyright central discharges and LPDs. Last electrographic seizure was identified at 09:33 AM on 05/11/2019. Ck Feliciaon MD RNITY FLOOR SUPERVISOR documented in this encounter Consult Notes * Michaela Anna, RD/LD - 05/10/2019 2:47 PM CSTAssociated Order(s): IP CONSULT TO NUTRITIONAL SERV Initial Nutrition Assessment Nutrition Recommendations: Alter TF formula - recs below TF Recommendations Jevity 1.5 at 55 ml/hr. +160 ml q6h free water flush Provides 1980 kcal, 84 g protein, 285 g carbohydrate, 1003 ml free water. Comments: Consult received for TF recommendations. Current TF not indicated, recommend changing formula to Jevity 1.5, more appropriate for dc. Assessment: Med/Surg History and Clinical Diagnoses: seizure; PMH: EtOH use, HTN, and post stroke Epilepsy Height: 5' 11 (180.3 cm) Weight: 127 lb (57.6 kg) BMI: Body mass index is 17.71 kg/m??. BMI Range: Underweight IBW/lb (Calculated) Male: 89 , Diet order accuracy Current diet order: NPO Current tube feeding order: Promote Nutrition recommendation: alter/change nutrition order P.O.Intake for the past 48 hrs: No data recorded Food Allergies: No known food allergies GI Concerns: None Chewing/Swallowing: Other (Comment)(not appropriate for PO ) Pain affecting intake: No Estimated Needs: KCAL: 7688-0251(30-35 kcal/kg 57.6 kg ) Protein (g): 80-90(1.4-1.6 g/kg 57.6 kg; BMI) Fluid (ml): 1 ml/kcal Needs based on: Kcal/kg- (Comment) Recommended Access Route: TF Pertinent Nutrition Labs: Noted Pertinent Nutrition Medications: Noted Skin/Wound: intact Education needed: None Education Provided: Not indicated Nutrition Care Process (1) Nutrition Diagnostic Statement: Inadequate oral intake related to:: decreased ability to consume or tolerate food and/or fluids due to illness as evidenced by:: oral intake insufficient to meet estimated requirements Nutrition Diagnostic Statement Progress: New diagnostic statement established Nutrition Intervention: Enteral nutrition: Monitoring: TF/TF initiation, nutrition labs, wt, BM's, I's&O's Evaluation: Nutrition Goal: Total intake will meet estimated nutrient needs Nutrition Goal Timeframe: Ongoing Nutrition Goal Progress: New goal established Michaela Anna RD/ONI RNITY FLOOR SUPERVISOR documented in this encounter Plan of Treatment Upcoming Encounters Date Type Department Care Team (Late st Contact Info) Description 12/05/2024 1:00 PM CDT Office Visit [facility] - Neurology [address] [place], [place] [address]vd, [place] [id number] Sean Raymundo, DO [address] [facility] 1[address] [place] [address] documented as of this encounter Procedures Procedure Name Priority Date/Time Associated Diagnosis Comments CARDIAC EKG ORDER 07/09/2019 11: 30 AM MATERNITY FLOOR SUPERVISOR CARDIAC EKG ORDER 06/28/2019 1:0 8 PM [employer]ERNITY FLOOR SUPERVISOR CARDIAC EKG ORDER 06/27/2019 2:2 9 PM MATERNITY FLOOR SUPERVISOR CARDIAC EKG ORDER 05/17/2019 1:5 7 PM MATERNITY FLOOR SUPERVISOR GLUCOSE - POINT OF CARE Routine 05/16/2019 4:05 PM MATERNITY FLOOR SUPERVISOR ECHO COMPLETE Routine 05/16/2019 2:13 PM MATERNITY FLOOR SUPERVISOR SVT (supraventricular tachycardia) GLUCOSE - POINT OF CARE Routine 05/16/2019 12:44 PM MATERNITY FLOOR SUPERVISOR CBC W AUTO DIFFERENTIAL AM Draw 05/16/2019 11:51 AM MATERNITY FLOOR SUPERVISOR BASIC METABOLIC PANEL (CALCIUM TOTAL) AM Draw 05/16/2019 11:51 AM MATERNITY FLOOR SUPERVISOR PHOSPHORUS BLOOD Routine 05/16/2019 11:5 1 AM MATERNITY FLOOR SUPERVISOR MAGNESIUM BLOOD Routine 05/16/2019 11:51 AM MATERNITY FLOOR SUPERVISOR GLUCOSE - POINT OF CARE Routine 05/16/2019 10:31 AM MATERNITY FLOOR SUPERVISOR GLUCOSE - POINT OF CARE Routine 05/16/2019 4:45 AM MATERNITY FLOOR SUPERVISOR GLUCOSE - POINT OF CARE Routine 05/16/2019 12:01 AM MATERNITY FLOOR SUPERVISOR GLUCOSE - POINT OF CARE Routine 05/15/2019 9:03 PM MATERNITY FLOOR SUPERVISOR TSH RINKU 05/15/2019 4:52 PM MATERNITY FLOOR SUPERVISOR T4 FREE RINKU 05/15/2019 4:52 PM MATERNITY FLOOR SUPERVISOR EKG 12-LEAD STAT 05/15/2019 4:00 PM MATERNITY FLOOR SUPERVISOR SVT (supraventricular tachycardia) GLUCOSE - POINT OF CARE Routine 05/15/2019 3:55 PM MATERNITY FLOOR SUPERVISOR GLUCOSE - POINT OF CARE Routine 05/15/2019 12:10 PM MATERNITY FLOOR SUPERVISOR CBC W AUTO DIFFERENTIAL AM Draw 05/15/2019 12:00 PM MATERNITY FLOOR SUPERVISOR TROPONIN I STAT 05/15/2019 9:11 AM MATERNITY FLOOR SUPERVISOR BASIC METABOLIC PANEL (CALCIUM TOTAL) AM Draw 05/15/2019 9:11 AM MATERNITY FLOOR SUPERVISOR PHOSPHORUS BLOOD Routine 05/15/2019 9:11 AM MATERNITY FLOOR SUPERVISOR MAGNESIUM BLOOD Routine 05/15/2019 9:11 AM MATERNITY FLOOR SUPERVISOR CK + CKMB PANEL STAT 05/15/2019 9:11 AM MATERNITY FLOOR SUPERVISOR GLUCOSE - POINT OF CARE Routine 05/15/2019 7:54 AM MATERNITY FLOOR SUPERVISOR GLUCOSE - POINT OF CARE Routine 05/15/2019 4:14 AM MATERNITY FLOOR SUPERVISOR GLUCOSE - POINT OF CARE Routine 05/15/2019 12:24 AM MATERNITY FLOOR SUPERVISOR TROPONIN I STAT 05/14/2019 9:52 PM MATERNITY FLOOR SUPERVISOR GLUCOSE - POINT OF CARE Routine 05/14/2019 9:01 PM MATERNITY FLOOR SUPERVISOR EKG 12-LEAD STAT 05/14/2019 8:23 PM MATERNITY FLOOR SUPERVISOR SVT (supraventricular tachycardia) GLUCOSE - POINT OF CARE Routine 05/14/2019 4:19 PM MATERNITY FLOOR SUPERVISOR GLUCOSE - POINT OF CARE Routine 05/14/2019 11:49 AM MATERNITY FLOOR SUPERVISOR GLUCOSE - POINT OF CARE Routine 05/14/2019 8:53 AM MATERNITY FLOOR SUPERVISOR GLUCOSE - POINT OF CARE Routine 05/14/2019 5:16 AM MATERNITY FLOOR SUPERVISOR CBC W AUTO DIFFERENTIAL AM Draw 05/14/2019 3:57 AM MATERNITY FLOOR SUPERVISOR BASIC METABOLIC PANEL (CALCIUM TOTAL) AM Draw 05/14/2019 3:57 AM MATERNITY FLOOR SUPERVISOR PHOSPHORUS BLOOD Routine 05/14/2019 3:57 AM MATERNITY FLOOR SUPERVISOR MAGNESIUM BLOOD Routine 05/14/2019 3:57 AM MATERNITY FLOOR SUPERVISOR GLUCOSE - POINT OF CARE Routine 05/14/2019 1:10 AM MATERNITY FLOOR SUPERVISOR GLUCOSE - POINT OF CARE Routine 05/13/2019 9:12 PM MATERNITY FLOOR SUPERVISOR TROPONIN I STAT 05/13/2019 8:30 PM MATERNITY FLOOR SUPERVISOR EKG 12-LEAD STAT 05/13/2019 6:23 PM MATERNITY FLOOR SUPERVISOR Seizure (HCC) XR ABDOMEN KUB PORTABLE STAT 05/13/2019 6:15 PM MATERNITY FLOOR SUPERVISOR Seizure (HCC) GLUCOSE - POINT OF CARE Routine 05/13/2019 5:07 PM MATERNITY FLOOR SUPERVISOR XR ABDOMEN KUB PORTABLE STAT 05/13/2019 1:46 PM MATERNITY FLOOR SUPERVISOR Seizure (HCC) GLUCOSE - POINT OF CARE Routine 05/13/2019 11:17 AM MATERNITY FLOOR SUPERVISOR GLUCOSE - POINT OF CARE Routine 05/13/2019 9:39 AM MATERNITY FLOOR SUPERVISOR CBC W AUTO DIFFERENTIAL AM Draw 05/13/2019 4:15 AM MATERNITY FLOOR SUPERVISOR BASIC METABOLIC PANEL (CALCIUM TOTAL) AM Draw 05/13/2019 4:15 AM MATERNITY FLOOR SUPERVISOR PHOSPHORUS BLOOD Routine 05/13/2019 4:15 AM MATERNITY FLOOR SUPERVISOR MAGNESIUM BLOOD Routine 05/13/2019 4:15 AM MATERNITY FLOOR SUPERVISOR VALPROIC ACID LEVEL Routine 05/13/2019 4 :15 AM MATERNITY FLOOR SUPERVISOR GLUCOSE - POINT OF CARE Routine 05/13/2019 4:13 AM MATERNITY FLOOR SUPERVISOR GLUCOSE - POINT OF CARE Routine 05/13/2019 12:17 AM MATERNITY FLOOR SUPERVISOR GLUCOSE - POINT OF CARE Routine 05/12/2019 9:41 PM MATERNITY FLOOR SUPERVISOR GLUCOSE - POINT OF CARE Routine 05/12/2019 4:58 PM MATERNITY FLOOR SUPERVISOR GLUCOSE - POINT OF CARE Routine 05/12/2019 12:21 PM MATERNITY FLOOR SUPERVISOR EEG VIDEO MONITORING Routine 05/12/2019 11:59 AM MATERNITY FLOOR SUPERVISOR GLUCOSE - POINT OF CARE Routine 05/12/2019 8:12 AM MATERNITY FLOOR SUPERVISOR HEMOGLOBIN A1C Routine 05/12/2019 5:42 AM MATERNITY FLOOR SUPERVISOR CBC W AUTO DIFFERENTIAL AM Draw 05/12/2019 5:42 AM MATERNITY FLOOR SUPERVISOR BASIC METABOLIC PANEL (CALCIUM TOTAL) AM Draw 05/12/2019 5:42 AM MATERNITY FLOOR SUPERVISOR PHOSPHORUS BLOOD Routine 05/12/2019 5:42 AM MATERNITY FLOOR SUPERVISOR MAGNESIUM BLOOD Routine 05/12/2019 5:42 AM MATERNITY FLOOR SUPERVISOR GLUCOSE - POINT OF CARE Routine 05/12/2019 4:26 AM MATERNITY FLOOR SUPERVISOR XR CHEST 1VW PORTABLE Routine 05/12/2019 3:04 AM MATERNITY FLOOR SUPERVISOR Seizure (HCC) XR ABDOMEN KUB PORTABLE STAT 05/12/2019 3:04 AM MATERNITY FLOOR SUPERVISOR Seizure (HCC) GLUCOSE - POINT OF CARE Routine 05/12/2019 12:03 AM MATERNITY FLOOR SUPERVISOR GLUCOSE - POINT OF CARE Routine 05/11/2019 6:07 PM MATERNITY FLOOR SUPERVISOR CULTURE URINE STAT 05/11/2019 2:25 PM MATERNITY FLOOR SUPERVISOR GLUCOSE - POINT OF CARE Routine 05/11/2019 12:04 PM MATERNITY FLOOR SUPERVISOR URINALYSIS W/MICROSCOPIC NO CULTURE Routine 05/11/2019 8:03 AM MATERNITY FLOOR SUPERVISOR GLUCOSE - POINT OF CARE Routine 05/11/2019 6:13 AM MATERNITY FLOOR SUPERVISOR MRI BRAIN WWO CONTRAST Routine 9 5:28 AM MATERNITY FLOOR SUPERVISOR Seizure (HCC) CBC W AUTO DIFFERENTIAL AM Draw 05/11/2019 2:59 AM MATERNITY FLOOR SUPERVISOR BASIC METABOLIC PANEL (CALCIUM TOTAL) AM Draw 05/11/2019 2:59 AM MATERNITY FLOOR SUPERVISOR PHOSPHORUS BLOOD Routine 05/11/2019 2:59 AM MATERNITY FLOOR SUPERVISOR MAGNESIUM BLOOD Routine 05/11/2019 2:59 AM MATERNITY FLOOR SUPERVISOR GLUCOSE - POINT OF CARE Routine 05/10/2019 11:58 PM MATERNITY FLOOR SUPERVISOR XR ABDOMEN KUB Routine 05/10/2019 11:42 PM MATERNITY FLOOR SUPERVISOR Seizure (HCC) GLUCOSE - POINT OF CARE Routine 05/10/2019 6:07 PM MATERNITY FLOOR SUPERVISOR GLUCOSE - POINT OF CARE Routine 05/10/2019 1:01 PM MATERNITY FLOOR SUPERVISOR XR ABDOMEN KUB PORTABLE STAT 05/10/2019 11:16 AM MATERNITY FLOOR SUPERVISOR Seizure (HCC) LEVETIRACETAM LEVEL STAT 05/10/2019 8 :32 AM MATERNITY FLOOR SUPERVISOR VITAMIN D 25-HYDROXY Routine 05/10/2019 8:32 AM MATERNITY FLOOR SUPERVISOR CBC W AUTO DIFFERENTIAL Routine 05/10/2019 3:10 AM MATERNITY FLOOR SUPERVISOR BASIC METABOLIC PANEL (CALCIUM TOTAL) Routine 05/10/2019 3:10 AM MATERNITY FLOOR SUPERVISOR PHOSPHORUS BLOOD Routine 05/10/2019 3:10 AM MATERNITY FLOOR SUPERVISOR MAGNESIUM BLOOD Routine 05/10/2019 3:10 AM MATERNITY FLOOR SUPERVISOR VALPROIC ACID LEVEL Routine 05/10/2019 3 :10 AM MATERNITY FLOOR SUPERVISOR XR CHEST 1VW PORTABLE Routine 05/09/2019 11:35 PM MATERNITY FLOOR SUPERVISOR Seizure (HCC) documented in this encounter Results * CARDIAC EKG ORDER (07/09/2019 11:30 AM MATERNITY FLOOR SUPERVISOR) Narrative 07/09/2019 11:30 AM MATERNITY FLOOR SUPERVISOR Ordered by an unspecified provider. Scanned Document CARDIAC SERVICES ORD ERABLES * CARDIAC EKG ORDER (06/28/2019 1:08 PM MATERNITY FLOOR SUPERVISOR) Narrative 06/28/2019 1:08 PM MATERNITY FLOOR SUPERVISOR Ordered by an unspecified provider. Scanned Document CARDIAC SERVICES ORD ERABLES * CARDIAC EKG ORDER (06/27/2019 2:29 PM MATERNITY FLOOR SUPERVISOR) Narrative 06/27/2019 2:29 PM MATERNITY FLOOR SUPERVISOR Ordered by an unspecified provider. Scanned Document CARDIAC SERVICES ORD ERABLES * CARDIAC EKG ORDER (05/17/2019 1:57 PM MATERNITY FLOOR SUPERVISOR) Narrative 05/17/2019 1:57 PM MATERNITY FLOOR SUPERVISOR Ordered by an unspecified provider. Scanned Document CARDIAC SERVICES ORD ERABLES * GLUCOSE - POINT OF CARE (05/16/2019 4:05 PM MATERNITY FLOOR SUPERVISOR) Glucose WB/POC 92 70 - 115 mg/dL 05/16/2019 4:08 PM MATERNITY FLOOR SUPERVISOR [facility] Specimen Type Arterial/C apillary 05/16/2019 4:08 PM MATERNITY FLOOR SUPERVISOR [facility] Blood BLOOD SPECIMEN / Unknown 05/16/2019 4:05 PM MATERNITY FLOOR SUPERVISOR 05/16/2019 4:08 PM MATERNITY FLOOR SUPERVISOR Sadiq Smith MD LAB - POINT OF CARE ORDERABLES Performing Organization Address City/[facility]/ZIP Co de Phone Number [address] [phone] * ECHO COMPLETE (05/16/2019 2:13 PM MATERNITY FLOOR SUPERVISOR) Anatomical Region Laterality Modality Echo 05/16/2019 1:33 PM MATERNITY FLOOR SUPERVISOR Narrative Procedure Note Benjamin Puentes MD - 05/16/2019 Bipin Becker MD ECHOCARDIOGRAPHY RAD IANT * GLUCOSE - POINT OF CARE (05/16/2019 12:44 PM MATERNITY FLOOR SUPERVISOR) Glucose WB/POC 97 70 - 115 mg/dL 05/16/2019 12:46 PM MATERNITY FLOOR SUPERVISOR [facility] Specimen Type Arterial/C apillary 05/16/2019 12:46 PM MATERNITY FLOOR SUPERVISOR [facility] Blood BLOOD SPECIMEN / Unknown 05/16/2019 12:44 PM MATERNITY FLOOR SUPERVISOR 05/16/2019 12:46 PM MATERNITY FLOOR SUPERVISOR Sadiq Smith MD LAB - POINT OF CARE ORDERABLES [address] [phone] * PHOSPHORUS BLOOD (05/16/2019 11:51 AM MATERNITY FLOOR SUPERVISOR) Phosphorus 2.7 2.3 - 4.7 mg/dL 05/16/2019 12:57 PM MATERNITY FLOOR SUPERVISOR [facility] Blood BLOOD SPECIMEN / Unknown Lab Venipuncture / Unknown 05/16/2019 11:51 AM MATERNITY FLOOR SUPERVISOR 05/16/2019 12:26 PM MATERNITY FLOOR SUPERVISOR Devika Cross MD [facility] [address] [phone] * MAGNESIUM BLOOD (05/16/2019 11:51 AM MATERNITY FLOOR SUPERVISOR) Magnesium 2.1 1.6 - 2.6 mg/dL 05/16/2019 12:[address] [facility] Blood BLOOD SPECIMEN / Unknown Lab Venipuncture / Unknown 05/16/2019 11:51 AM MATERNITY FLOOR SUPERVISOR 05/16/2019 12:26 PM MATERNITY FLOOR SUPERVISOR Devika Cross MD LAB - CHEMISTRY [facility]SHAL MEDEROS [address] [phone] * (ABNORMAL) BASIC METABOLIC PANEL (CALCIUM TOTAL) (05/16/2019 11:51 AM MATERNITY FLOOR SUPERVISOR) Pathologist [facility] BUN 16 7 - 26 mg/dL 05/16/2019 12:57 PM [facility] Creatinine 0.8 0.6 - 1.2 mg/dL 05/16/2019 12:[address] [facility] Sodium 137 136 - 145 mmol/L 05/16/2019 12:[address] [facility] Potassium 4.1 3.5 - 4.5 mmol/L 05/16/2019 12:[address] [facility] Chloride 99 98 - 107 mmol/L 05/16/2019 12:[address] [facility] CO2 32(H) 22 - 29 mmol/L 05/16/2019 12:[address] [facility] Glucose 88 70 - 115 mg/dL 05/16/2019 12:[address] [facility] Calcium 9.2 8.4 - 10.2 mg/dL 05/16/2019 12:[address] [facility] Anion Gap 10 8 - 18 05/16/2019 12:[address] [facility] BUN/Creatinine Ratio 20 7 - 23 05/16/2019 12:[address] [facility] Osmolality Calculated 285 270 - 300 mOsm/kg 05/16/2019 12:[address] [facility] eGFR >60 >60 mL/min/1.7 3 m2 05/16/2019 12:[address] [facility] Blood BLOOD SPECIMEN / Unknown Lab Venipuncture / Unknown 05/16/2019 11:51 AM MATERNITY FLOOR SUPERVISOR 05/16/2019 12:26 PM MATERNITY FLOOR SUPERVISOR Devika Cross MD LAB - CHEMISTRY MARSHAL Diana Organization Address City/State/ZIP Co de Phone Number [facility] [address] [phone] * (ABNORMAL) CBC W AUTO DIFFERENTIAL (05/16/2019 11:51 AM MATERNITY FLOOR SUPERVISOR) WBC 5.5 3.5 - 10.5 10? 3 /uL 05/16/2019 12:[address] [facility] RBC 4.23(L) 4.30 - 5.70 10? 6 /uL 05/16/2019 12:[address] [facility] Hemoglobin 13.3(L) 13.5 - 17.5 g/dL 05/16/2019 12:[address] [facility] Hematocrit 40.6 39.0 - 50.0 % 05/16/2019 12:[address] [facility] MCV 96.0 81.0 - 97.0 fL 05/16/2019 12:[address] [facility] MCH 31.4 28.0 - 34.0 pg 05/16/2019 12:[address] [facility] MCHC 32.8 32.0 - 36.0 g/dL 05/16/2019 12:[address] [facility] Platelet Count 178 150 - 400 10? 3 /uL 05/16/2019 12:[address] [facility] RDW-SD 43.1 36.0 - 50.0 fL 05/16/2019 12:[address] [facility] RDW-CV 12.3 11.2 - 14.8 % 05/16/2019 12:[address] [facility] MPV 11.3 9.3 - 12.8 fL 05/16/2019 12:[address] [facility] nRBC Absolute 0.00 0 10? 3 /uL 05/16/2019 12:[address] [facility] nRBC Auto 0.0 0 /100 WBC 05/16/2019 12:[address] [facility] Neutrophils % 40.5 35.0 - 70.0 % 05/16/2019 12:[address] [facility] Lymphocytes % 43.9 19.7 - 55.1 % 05/16/2019 12:[address] [facility] Monocytes % 9.3 3.0 - 15.0 % 05/16/2019 12:[address] [facility] Eosinophils % 5.5 0.0 - 6.0 % 05/16/2019 12:[address] [facility] Basophil % 0.4 0.0 - 1.5 % 05/16/2019 12:[address] [facility] Neutrophils Absolute 2.2 1.6 - 7.0 10? 3 /uL 05/16/2019 12:[address] [facility] Lymphocyte Absolute 2.4 0.8 - 2.9 10? 3 /uL 05/16/2019 12:[address] [facility] Monocytes Absolute 0.51 0.14 - 0.66 10? 3 /uL 05/16/2019 12:[address] [facility] Eosinophils Absolute 0.30 0.00 - 0.45 10? 3 /uL 05/16/2019 12:[address] [facility] Basophils Absolute 0.02 0.00 - 0.06 10? 3 /uL 05/16/2019 12:[address] [facility] Immature Granulocytes % 0.4 0.0 - 1.0 % 05/16/2019 12:[address] [facility] Blood BLOOD SPECIMEN / Unknown Lab Venipuncture / Unknown 05/16/2019 11:51 AM MATERNITY FLOOR SUPERVISOR 05/16/2019 12:26 PM [facility] Devika Cross MD LAB - HEMATOLOGY ORD ERABLES [facility] [address] [phone] * GLUCOSE - POINT OF CARE (05/16/2019 10:31 AM [facility]) Glucose WB/POC 108 70 - 115 mg/dL 05/16/2019 10:[address] [facility] Specimen Type Arterial/C apillary 05/16/2019 10:41 AM [employer] [facility] Blood BLOOD SPECIMEN / Unknown 05/16/2019 10:31 AM [employer] 05/16/2019 10:41 AM [employer] Sadiq Smith MD LAB - POINT OF CARE ORDERABLES [place] [address], [facility] [phone] * GLUCOSE - POINT OF CARE (05/16/2019 4:45 AM MATERNITY FLOOR SUPERVISOR) Glucose WB/POC 115 70 - 115 mg/dL 05/16/2019 4:[address] [facility] Specimen Type Arterial/C apillary 05/16/2019 4:[address] [facility] Blood BLOOD SPECIMEN / Unknown 05/16/2019 4:45 AM [employer]ERNITY FLOOR SUPERVISOR 05/16/2019 4:48 AM MATERNITY FLOOR SUPERVISOR Sadiq Smith MD LAB - POINT OF CARE ORDERABLES Performing Organization Address [facility]/ZIP [place] [address], [facility] [phone] * (ABNORMAL) GLUCOSE - POINT OF CARE (05/16/2019 12:01 AM MATERNITY FLOOR SUPERVISOR) Glucose WB/POC 153(H) 70 - 115 mg/dL 05/16/2019 12:18 AM MATERNITY FLOOR SUPERVISOR [facility] Specimen Type Arterial/C apillary 05/16/2019 12:18 AM MATERNITY FLOOR SUPERVISOR [facility] Blood BLOOD SPECIMEN / Unknown 05/16/2019 12:01 AM MATERNITY FLOOR SUPERVISOR 05/16/2019 12:18 AM MATERNITY FLOOR SUPERVISOR Sadiq Smith MD LAB - POINT [place] [address], [facility] [phone] * GLUCOSE - POINT OF CARE (05/15/2019 9:03 PM MATERNITY FLOOR SUPERVISOR) Pathologist [facility] Glucose WB/POC 102 70 - 115 mg/dL 05/15/2019 9:09 PM MATERNITY FLOOR SUPERVISOR [facility] Specimen Type Arterial/C apillary 05/15/2019 9:09 PM MATERNITY FLOOR SUPERVISOR [facility] Blood BLOOD SPECIMEN / Unknown 05/15/2019 9:03 PM MATERNITY FLOOR SUPERVISOR 05/15/2019 9:09 PM MATERNITY FLOOR SUPERVISOR Sadiq Smith MD LAB - POINT OF CARE ORDERABLES [address] [phone] * T4 FREE (05/15/2019 4:52 PM MATERNITY FLOOR SUPERVISOR) Pathologist [facility] T4 Free 0.9 0.7 - 1.5 ng/dL 05/15/2019 5:[address] [facility] Blood BLOOD SPECIMEN / Unknown Lab Venipuncture / Unknown 05/15/2019 4:52 PM [employer]ERN[employer] FLOOR SUPERVISOR 05/15/2019 4:57 PM MATERNITY FLOOR SUPERVISOR Bipin Becker MD LAB - CHEMISTRY [facility] [address] [phone] * TSH (05/15/2019 4:52 PM MATERNITY FLOOR SUPERVISOR) Pathologist [facility] TSH 1.344 0.350 - 4.940 uIU/mL 05/15/2019 5:34 PM MATERNITY FLOOR SUPERVISOR [facility] Blood BLOOD SPECIMEN / Unknown Lab Venipuncture / Unknown 05/15/2019 4:52 PM MATERN[employer] FLOOR SUPERVISOR 05/15/2019 4:57 PM MATERNITY FLOOR SUPERVISOR Bipin Becker MD LAB - CHEMISTRY [facility] [address] [phone] * EKG 12-LEAD (05/15/2019 4:00 PM MATERNITY FLOOR SUPERVISOR) Ventricular Rate 116 BPM [facility] Atrial Rate 116 BPM [facility] P-R Interval 134 ms [facility] QRS Duration ms 80 ms [facility] Q-T Interval ms 328 ms [facility] QTC Calculation (Bezet) 455 ms [facility] Calculated P [place] 81 degrees [facility] Calculated R [place] 29 degrees [facility] Calculated T [place] 91 degrees [facility] Interpretation EKG SINUS TACHYCARDIA SEPTAL INFARCT , AGE UNDETERMINED ABNORMAL ECG NO PREVIOUS ECGS AVAILABLE Confirmed by Carrie Haider ([id number]), television news video editor Mega Tim ([id number]) on 06/09/2019 10:35:47 AM [facility] 05/15/2019 4:00 PM MATERN[employer] FLOOR SUPERVISOR 06/09/2019 10:35 AM MATERNITY FLOOR SUPERVISOR Conrad Kowalski MD ECG ORDERABLES Performing Organization Address City/[facility]/ZIP Co de Phone Number [facility] M[facility] * GLUCOSE - POINT OF CARE (05/15/2019 3:55 PM MATERNITY FLOOR SUPERVISOR) [facility] Glucose WB/POC 109 70 - 115 mg/dL 05/15/2019 4:05 PM MATERNITY FLOOR SUPERVISOR [facility] Specimen Type Arterial/C apillary 05/15/2019 4:[address] [facility] Blood BLOOD SPECIMEN / Unknown 05/15/2019 3:55 PM MATERN[employer] FLOOR SUPERVISOR 05/15/2019 4:05 PM MATERN[employer] FLOOR SUPERVISOR Sadiq Smith MD LAB - POINT OF CARE ORDERABLES [address] [phone] * (ABNORMAL) GLUCOSE - POINT OF CARE (05/15/2019 12:10 PM MATERNITY FLOOR SUPERVISOR) Pathologist [facility] Glucose WB/POC 148(H) 70 - 115 mg/dL 05/15/2019 12:23 PM MATERNITY FLOOR SUPERVISOR [facility] Specimen Type Arterial/C apillary 05/15/2019 12:23 PM MATERNITY FLOOR SUPERVISOR [facility] Blood BLOOD SPECIMEN / Unknown 05/15/2019 12:10 PM MATERN[employer] FLOOR SUPERVISOR 05/15/2019 12:23 PM MATERNITY FLOOR SUPERVISOR Sadiq Smith MD LAB - POINT OF CARE ORDERABLES [facility] [address] [place] [address], [facility] [phone] * CBC W AUTO DIFFERENTIAL (05/15/2019 12:00 PM MATERNITY FLOOR SUPERVISOR) WBC 7.2 3.5 - 10.5 10? 3 /uL 05/15/2019 12:[address] [facility] RBC 4.81 4.30 - 5.70 10? 6 /uL 05/15/2019 12:[address] [facility] Hemoglobin 14.9 13.5 - 17.5 g/dL 05/15/2019 12:[address] [facility] Hematocrit 45.3 39.0 - 50.0 % 05/15/2019 12:[address] [facility] MCV 94.2 81.0 - 97.0 fL 05/15/2019 12:[address] [facility] MCH 31.0 28.0 - 34.0 pg 05/15/2019 12:[address] [facility] MCHC 32.9 32.0 - 36.0 g/dL 05/15/2019 12:[address] [facility] Platelet Count 177 150 - 400 10? 3 /uL 05/15/2019 12:[address] [facility] RDW-SD 42.5 36.0 - 50.0 fL 05/15/2019 12:[address] [facility] RDW-CV 12.2 11.2 - 14.8 % 05/15/2019 12:[address] [facility] MPV 11.7 9.3 - 12.8 fL 05/15/2019 12:[address] [facility] nRBC Absolute 0.00 0 10? 3 /uL 05/15/2019 12:[address] [facility] nRBC Auto 0.0 0 /100 WBC 05/15/2019 12:[address] [facility] Neutrophils % 62.4 35.0 - 70.0 % 05/15/2019 12:[address] [facility] Lymphocytes % 27.5 19.7 - 55.1 % 05/15/2019 12:19 PM [facility] Monocytes % 7.5 3.0 - 15.0 % 05/15/2019 12:[address] [facility] Eosinophils % 2.1 0.0 - 6.0 % 05/15/2019 12:[address] [facility] Basophil % 0.1 0.0 - 1.5 % 05/15/2019 12:[address] [facility] Neutrophils Absolute 4.5 1.6 - 7.0 10? 3 /uL 05/15/2019 12:[address] [facility] Lymphocyte Absolute 2.0 0.8 - 2.9 10? 3 /uL 05/15/2019 12:[address] [facility] Monocytes Absolute 0.54 0.14 - 0.66 10? 3 /uL 05/15/2019 12:[address] [facility] Eosinophils Absolute 0.15 0.00 - 0.45 10? 3 /uL 05/15/2019 12:[address] [facility] Basophils Absolute 0.01 0.00 - 0.06 10? 3 /uL 05/15/2019 12:[address] [facility] Immature Granulocytes % 0.4 0.0 - 1.0 % 05/15/2019 12:[address] [facility] Blood BLOOD SPECIMEN / Unknown Lab Venipuncture / Unknown 05/15/2019 12:00 PM MATERN[employer] FLOOR SUPERVISOR 05/15/2019 12:09 PM [facility] Devika Cross MD LAB - HEMATOLOGY ORD ERABLES Performing Organization Address City/State/[facility] Co de Phone Number [facility] [address] [phone] * CK + CKMB PANEL (05/15/2019 9:11 AM MATERNITY FLOOR SUPERVISOR) CK Total 63 30 - 200 Units/L 05/15/2019 9:[address] [facility] CK-MB 0.8 0.0 - 6.6 ng/mL 05/15/2019 9:[address] [facility] Blood BLOOD SPECIMEN / Unknown Lab Venipuncture / Unknown 05/15/2019 9:11 AM MATERNITY FLOOR SUPERVISOR 05/15/2019 9:15 AM MATERNITY FLOOR SUPERVISOR Brian Lawrence MD LAB - CHEMISTRY [facility] Performing Organization Address [facility]/ZIP Co de Phone Number [address] [phone] * TROPONIN I (05/15/2019 9:11 AM MATERNITY FLOOR SUPERVISOR) Troponin I <0.010 <0.032 ng/mL 05/15/2019 9:42 AM MATERNITY FLOOR SUPERVISOR [facility] Blood BLOOD SPECIMEN / Unknown Lab Venipuncture / Unknown 05/15/2019 9:11 AM MATERNITY FLOOR SUPERVISOR 05/15/2019 9:15 AM MATERNITY FLOOR SUPERVISOR Brian Lawrence MD LAB - CHEMISTRY [facility] Performing Organization Address [facility] Co de Phone Number [address] [phone] * PHOSPHORUS BLOOD (05/15/2019 9:11 AM MATERNITY FLOOR SUPERVISOR) Phosphorus 3.0 2.3 - 4.7 mg/dL 05/15/2019 9:32 AM MATERNITY FLOOR SUPERVISOR [facility] Blood BLOOD SPECIMEN / Unknown Lab Venipuncture / Unknown 05/15/2019 9:11 AM MATERNITY FLOOR SUPERVISOR 05/15/2019 9:15 AM MATERNITY FLOOR SUPERVISOR Devika Cross MD LAB - CHEMISTRY [facility]OS Performing Organization Address [facility]/ZIP Co de Phone Number [address] [phone] * MAGNESIUM BLOOD (05/15/2019 9:11 AM MATERNITY FLOOR SUPERVISOR) Magnesium 1.9 1.6 - 2.6 mg/dL 05/15/2019 9:35 AM MATERNITY FLOOR SUPERVISOR [facility] Blood BLOOD SPECIMEN / Unknown Lab Venipuncture / Unknown 05/15/2019 9:11 AM MATERNITY FLOOR SUPERVISOR 05/15/2019 9:15 AM MATERNITY FLOOR SUPERVISOR Devika Cross MD LAB - CHEMISTRY MARSHAL MEDEROS [facility] [address] [place] [address] * BASIC METABOLIC PANEL (CALCIUM TOTAL) (05/15/2019 9:11 AM [facility]) BUN 12 7 - 26 mg/dL 05/15/2019 9:35 AM [facility] Creatinine 0.8 0.6 - 1.2 mg/dL 05/15/2019 9:[address] [facility] Sodium 140 136 - 145 mmol/L 05/15/2019 9:[address] [facility] Potassium 3.9 3.5 - 4.5 mmol/L 05/15/2019 9:[address] [facility] Chloride 102 98 - 107 mmol/L 05/15/2019 9:[address] [facility] CO2 25 22 - 29 mmol/L 05/15/2019 9:[address] [facility] Glucose 97 70 - 115 mg/dL 05/15/2019 9:[address] [facility] Calcium 9.5 8.4 - 10.2 mg/dL 05/15/2019 9:[address] [facility] Anion Gap 17 8 - 18 05/15/2019 9:[address] [facility] BUN/Creatinine Ratio 15 7 - 23 05/15/2019 9:[address] [facility] Osmolality Calculated 290 270 - 300 mOsm/kg 05/15/2019 9:[address] [facility] eGFR >60 >60 mL/min/1.7 3 m2 05/15/2019 9:[address] [facility] Blood BLOOD SPECIMEN / Unknown Lab Venipuncture / Unknown 05/15/2019 9:11 AM MATERNITY FLOOR SUPERVISOR 05/15/2019 9:15 AM [facility] Devika Cross MD LAB - CHEMISTRY MARSHAL MEDEROS [facility] [address] [place] [address] * GLUCOSE - POINT OF CARE (05/15/2019 7:54 AM [facility]) Glucose WB/POC 107 70 - 115 mg/dL 05/15/2019 8:02 AM MATERNITY FLOOR SUPERVISOR [facility] Specimen Type Arterial/C apillary 05/15/2019 8:[address] [facility] Blood BLOOD SPECIMEN / Unknown 05/15/2019 7:54 AM MATERNITY FLOOR SUPERVISOR 05/15/2019 8:02 AM MATERNITY FLOOR SUPERVISOR Sadiq Smith MD LAB - POINT OF CARE ORDERABLES [address] [phone] * GLUCOSE - POINT OF CARE (05/15/2019 4:14 AM MATERNITY FLOOR SUPERVISOR) Glucose WB/POC 96 70 - 115 mg/dL 05/15/2019 4:[address] [facility] Specimen Type Arterial/C apillary 05/15/2019 4:21 AM MATERNITY FLOOR SUPERVISOR [facility] Blood BLOOD SPECIMEN / Unknown 05/15/2019 4:14 AM MATERNITY FLOOR SUPERVISOR 05/15/2019 4:21 AM MATERNITY FLOOR SUPERVISOR Sadiq Smith MD LAB - POINT OF CARE ORDERABLES Performing Organization Address City/[facility]/ZIP Co de Phone Number [address] [phone] * GLUCOSE - POINT OF CARE (05/15/2019 12:24 AM MATERNITY FLOOR SUPERVISOR) Glucose WB/POC 87 70 - 115 mg/dL 05/15/2019 12:35 AM MATERNITY FLOOR SUPERVISOR [facility] Specimen Type Arterial/C apillary 05/15/2019 12:35 AM MATERNITY FLOOR SUPERVISOR [facility] Blood BLOOD SPECIMEN / Unknown 05/15/2019 12:24 AM MATERNITY FLOOR SUPERVISOR 05/15/2019 12:35 AM MATERNITY FLOOR SUPERVISOR Sadiq Smith MD LAB - POINT OF CARE ORDERABLES [address] [phone] * TROPONIN I (05/14/2019 9:52 PM MATERNITY FLOOR SUPERVISOR) [facility] Troponin I <0.010 <0.032 ng/mL 05/14/2019 10:20 PM MATERNITY FLOOR SUPERVISOR [facility] Blood BLOOD SPECIMEN / Unknown Lab Venipuncture / Unknown 05/14/2019 9:52 PM MATERNITY FLOOR SUPERVISOR 05/14/2019 9:56 PM MATERNITY FLOOR SUPERVISOR Germain Cardoza MD LAB - CHEMISTRY ORDByron MEDEROS [address] [phone] * GLUCOSE - POINT OF CARE (05/14/2019 9:01 PM MATERNITY FLOOR SUPERVISOR) [facility] Glucose WB/POC 94 70 - 115 mg/dL 05/14/2019 9:[address] [facility] Specimen Type Arterial/C apillary 05/14/2019 9:[address] [facility] Blood BLOOD SPECIMEN / Unknown 05/14/2019 9:01 PM MATERNITY FLOOR SUPERVISOR 05/14/2019 9:08 PM MATERNITY FLOOR SUPERVISOR Sadiq Smith MD LAB - POINT OF CARE ORDERABLES Performing Organization Address City/[facility] Co de Phone Number [address] [phone] * EKG 12-LEAD (05/14/2019 8:23 PM MATERNITY FLOOR SUPERVISOR) [facility] Ventricular Rate 97 BPM [facility] Atrial Rate 97 BPM [facility] P-R Interval 130 ms [facility] QRS Duration ms 86 ms [facility] Q-T Interval ms 342 ms [facility] QTC Calculation (Bezet) 434 ms [facility] M[facility] Calculated P [place] 76 degrees [facility] M[facility] Calculated R [place] 41 degrees [facility] Calculated T [place] 91 degrees [facility] Interpretation EKG NORMAL SINUS RHYTHM SEPTAL INFARCT , AGE UNDETERMINED ABNORMAL ECG NO PRIOR TRACING AVAILABLE Confirmed by Tio Curry ([id number]), television news video editor Mega Tim ([id number]) on 06/05/2019 11:14:30 PM [facility] 05/14/2019 8:23 PM MATERNITY FLOOR SUPERVISOR 06/05/2019 11:14 PM MATERNITY FLOOR SUPERVISOR Germain Cardoza MD ECG ORDERABLES [facility] * (ABNORMAL) GLUCOSE - POINT OF CARE (05/14/2019 4:19 PM MATERNITY FLOOR SUPERVISOR) Glucose WB/POC 127(H) 70 - 115 mg/dL 05/14/2019 4:26 PM MATERNITY FLOOR SUPERVISOR [facility] Specimen Type Arterial/C apillary 05/14/2019 4:26 PM MATERNITY FLOOR SUPERVISOR [facility] Blood BLOOD SPECIMEN / Unknown 05/14/2019 4:19 PM MATERNITY FLOOR SUPERVISOR 05/14/2019 4:26 PM MATERNITY FLOOR SUPERVISOR Sadiq Smith MD LAB - POINT OF CARE ORDERABLES Performing Organization Address [facility] Co de Phone Number [address] [phone] * (ABNORMAL) GLUCOSE - POINT OF CARE (05/14/2019 11:49 AM MATERNITY FLOOR SUPERVISOR) Glucose WB/POC 133(H) 70 - 115 mg/dL 05/14/2019 11:[address] [facility] Specimen Type Arterial/C apillary 05/14/2019 11:59 AM MATERNITY FLOOR SUPERVISOR [facility] Blood BLOOD SPECIMEN / Unknown 05/14/2019 11:49 AM MATERNITY FLOOR SUPERVISOR 05/14/2019 11:59 AM MATERNITY FLOOR SUPERVISOR Sadiq Smith MD LAB - POINT OF CARE ORDERABLES Performing Organization Address City/[facility]/ZIP Co de Phone Number [address] [phone] * GLUCOSE - POINT OF CARE (05/14/2019 8:53 AM MATERNITY FLOOR SUPERVISOR) Glucose WB/POC 114 70 - 115 mg/dL 05/14/2019 8:57 AM MATERNITY FLOOR SUPERVISOR [facility] Specimen Type Arterial/C apillary 05/14/2019 8:57 AM MATERNITY FLOOR SUPERVISOR [facility] Blood BLOOD SPECIMEN / Unknown 05/14/2019 8:53 AM MATERNITY FLOOR SUPERVISOR 05/14/2019 8:57 AM MATERNITY FLOOR SUPERVISOR Sadiq Smith MD LAB - POINT OF CARE ORDERABLES [address] [phone] * (ABNORMAL) GLUCOSE - POINT OF CARE (05/14/2019 5:16 AM MATERNITY FLOOR SUPERVISOR) Glucose WB/POC 131(H) 70 - 115 mg/dL 05/14/2019 5:24 AM MATERNITY FLOOR SUPERVISOR [facility] Specimen Type Arterial/C apillary 05/14/2019 5:[address] [facility] Blood BLOOD SPECIMEN / Unknown 05/14/2019 5:16 AM MATERNITY FLOOR SUPERVISOR 05/14/2019 5:24 AM MATERNITY FLOOR SUPERVISOR Sadiq Smith MD LAB - POINT OF CARE ORDERABLES [address] [phone] * PHOSPHORUS BLOOD (05/14/2019 3:57 AM MATERNITY FLOOR SUPERVISOR) Phosphorus 3.1 2.3 - 4.7 mg/dL 05/14/2019 4:44 AM MATERNITY FLOOR SUPERVISOR [facility] Blood BLOOD SPECIMEN / Unknown Lab Venipuncture / Unknown 05/14/2019 3:57 AM MATERNITY FLOOR SUPERVISOR 05/14/2019 4:13 AM MATERNITY FLOOR SUPERVISOR Devika Cross MD LAB - CHEMISTRY [facility] MEDEROS [address] [phone] * MAGNESIUM BLOOD (05/14/2019 3:57 AM MATERNITY FLOOR SUPERVISOR) Magnesium 1.8 1.6 - 2.6 mg/dL 05/14/2019 4:[address] [facility] Blood BLOOD SPECIMEN / Unknown Lab Venipuncture / Unknown 05/14/2019 3:57 AM MATERNITY FLOOR SUPERVISOR 05/14/2019 4:13 AM MATERNITY FLOOR SUPERVISOR Devika Cross MD LAB - CHEMISTRY MARSHAL MEDEROS Performing Organization Address City/[facility]/ZIP Co de Phone Number [facility] [address] [phone] * BASIC METABOLIC PANEL (CALCIUM TOTAL) (05/14/2019 3:57 AM MATERNITY FLOOR SUPERVISOR) BUN 12 7 - 26 mg/dL 05/14/2019 4:[address] [facility] Creatinine 0.6 0.6 - 1.2 mg/dL 05/14/2019 4:[address] [facility] Sodium 140 136 - 145 mmol/L 05/14/2019 4:[address] [facility] Potassium 3.7 3.5 - 4.5 mmol/L 05/14/2019 4:[address] [facility] Chloride 104 98 - 107 mmol/L 05/14/2019 4:[address] [facility] CO2 24 22 - 29 mmol/L 05/14/2019 4:[address] [facility] Glucose 112 70 - 115 mg/dL 05/14/2019 4:[address] [facility] Calcium 9.7 8.4 - 10.2 mg/dL 05/14/2019 4:[address] [facility] Anion Gap 16 8 - 18 05/14/2019 4:[address] [facility] BUN/Creatinine Ratio 20 7 - 23 05/14/2019 4:[address] [facility] Osmolality Calculated 291 270 - 300 mOsm/kg 05/14/2019 4:[address] [facility] eGFR >60 >60 mL/min/1.7 3 m2 05/14/2019 4:[address] [facility] Blood BLOOD SPECIMEN / Unknown Lab Venipuncture / Unknown 05/14/2019 3:57 AM MATERNITY FLOOR SUPERVISOR 05/14/2019 4:13 AM MATERN[employer] FLOOR SUPERVISOR Devika Cross MD LAB - CHEMISTRY MARSHAL MEDEROS [facility] [address] [phone] * CBC W AUTO DIFFERENTIAL (05/14/2019 3:57 AM [facility]) WBC 8.0 3.5 - 10.5 10? 3 /uL 05/14/2019 4:[address] [facility] RBC 4.72 4.30 - 5.70 10? 6 /uL 05/14/2019 4:[address] [facility] Hemoglobin 14.8 13.5 - 17.5 g/dL 05/14/2019 4:[address] [facility] Hematocrit 44.2 39.0 - 50.0 % 05/14/2019 4:[address] [facility] MCV 93.6 81.0 - 97.0 fL 05/14/2019 4:[address] [facility] MCH 31.4 28.0 - 34.0 pg 05/14/2019 4:[address] [facility] MCHC 33.5 32.0 - 36.0 g/dL 05/14/2019 4:[address] [facility] Platelet Count 190 150 - 400 10? 3 /uL 05/14/2019 4:[address] [facility] RDW-SD 41.7 36.0 - 50.0 fL 05/14/2019 4:[address] [facility] RDW-CV 11.9 11.2 - 14.8 % 05/14/2019 4:[address] [facility] MPV 11.5 9.3 - 12.8 fL 05/14/2019 4:[address] [facility] nRBC Absolute 0.00 0 10? 3 /uL 05/14/2019 4:[address] [facility] nRBC Auto 0.0 0 /100 WBC 05/14/2019 4:[address] [facility] Neutrophils % 61.2 35.0 - 70.0 % 05/14/2019 4:[address] [facility] Lymphocytes % 30.4 19.7 - 55.1 % 05/14/2019 4:[address] [facility] Monocytes % 7.7 3.0 - 15.0 % 05/14/2019 4:18 AM MATERNITY FLOOR SUPERVISOR [facility] Eosinophils % 0.3 0.0 - 6.0 % 05/14/2019 4:18 AM [facility] Basophil % 0.1 0.0 - 1.5 % 05/14/2019 4:[address] [facility] Neutrophils Absolute 4.9 1.6 - 7.0 10? 3 /uL 05/14/2019 4:[address] [facility] Lymphocyte Absolute 2.4 0.8 - 2.9 10? 3 /uL 05/14/2019 4:[address] [facility] Monocytes Absolute 0.61 0.14 - 0.66 10? 3 /uL 05/14/2019 4:[address] [facility] Eosinophils Absolute 0.02 0.00 - 0.45 10? 3 /uL 05/14/2019 4:[address] [facility] Basophils Absolute 0.01 0.00 - 0.06 10? 3 /uL 05/14/2019 4:[address] [facility] Immature Granulocytes % 0.3 0.0 - 1.0 % 05/14/2019 4:[address] [facility] Blood BLOOD SPECIMEN / Unknown Lab Venipuncture / Unknown 05/14/2019 3:57 AM [employer]ERN[employer] FLOOR SUPERVISOR 05/14/2019 4:13 AM [employer]ERN[employer] FLOOR SUPERVISOR Devika Cross MD LAB - HEMATOLOGY ORD ERABLES [address] [phone] * GLUCOSE - POINT OF CARE (05/14/2019 1:10 AM MATERNITY FLOOR SUPERVISOR) Glucose WB/POC 114 70 - 115 mg/dL 05/14/2019 1:[address] [facility] Specimen Type Arterial/C apillary 05/14/2019 1:[address] [facility] Blood BLOOD SPECIMEN / Unknown 05/14/2019 1:10 AM MATERNITY FLOOR SUPERVISOR 05/14/2019 1:17 AM MATERNITY FLOOR SUPERVISOR Sadiq Smith MD LAB - POINT OF CARE ORDERABLES [place] [id number], [place] [phone] * (ABNORMAL) GLUCOSE - POINT OF CARE (05/13/2019 9:12 PM MATERNITY FLOOR SUPERVISOR) Pathologist [facility] Glucose WB/POC 150(H) 70 - 115 mg/dL 05/13/2019 9:19 PM [employer]ERNITY FLOOR SUPERVISOR [facility] Specimen Type Arterial/C apillary 05/13/2019 9:19 PM [employer]ERNITY FLOOR SUPERVISOR [facility] Blood BLOOD SPECIMEN / Unknown 05/13/2019 9:12 PM [employer] FLOOR SUPERVISOR 05/13/2019 9:19 PM [employer]ERN[employer] FLOOR SUPERVISOR Sadiq Smith MD LAB - POINT OF CARE ORDERABLES [address] [phone] * TROPONIN I (05/13/2019 8:30 PM MATERNITY FLOOR SUPERVISOR) [facility] Troponin I 0.012 <0.032 ng/mL 05/13/2019 9:[address] [facility] Blood BLOOD SPECIMEN / Unknown 05/13/2019 8:30 PM [employer] FLOOR SUPERVISOR 05/13/2019 8:38 PM [employer] FLOOR SUPERVISOR Cuca Becker MD LAB - CHEMISTRY O RDERABLES [address] [phone] * EKG 12-LEAD (05/13/2019 6:23 PM MATERNITY FLOOR SUPERVISOR) [facility] Ventricular Rate 128 BPM [facility]USE Atrial Rate 128 BPM [facility] M[facility] P-R Interval 118 ms [facility] M[facility] QRS Duration ms 82 ms [facility] M[facility] Q-T Interval ms 324 ms [facility] M[facility] QTC Calculation (Bezet) 473 ms [facility]USE Calculated P [place] 81 degrees SL MUSE Calculated R [place] 25 degrees SL MUSE Calculated T [place] 93 degrees SL MUSE Interpretation EKG SINUS TACHYCARDIA POSSIBLE LEFT ATRIAL ENLARGEMENT SEPTAL INFARCT (CITED ON OR BEFORE 11-APR-2015) ABNORMAL ECG WHEN COMPARED WITH ECG OF 22-JAN-2019 04:42, [facility]. RATE HAS INCREASED BY ??61 BPM SERIAL CHANGES OF SEPTAL INFARCT PRESENT Confirmed by Tio Curyr ([id number]), television news video editor NATALIA HUFF [id number]) on 05/18/2019 10:46:53 AM [facility] MUSE 05/13/2019 6:23 PM [employer]LOOR SUPERVISOR 05/18/2019 10:46 AM [employer] FLOOR SUPERVISOR Cuca Becker MD ECG ORDERABLES [facility] MUSE * XR ABDOMEN KUB PORTABLE (05/13/2019 6:15 PM [employer]ERNITY FLOOR SUPERVISOR) Anatomical Region Laterality Modality Radiographic Cynthia ging 05/14/2019 11:0 5 AM [employer] FLOOR SUPERVISOR Impressions 05/14/2019 3:33 PM [employer]ERN[employer] FLOOR SUPERVISOR FINDINGS/IMPRESSION: A gastric tube tip now projects over the distal stomach. Dictated by Tamar Cisse MD (technical operations vice president). This report was approved ??by Tamar Cisse M.D. ?? on 05/14/2019 3:00 PM . I, Dr. HAZEL HYATT M.D. have personally reviewed and interpreted this examination/study. This report was electronically signed by HAZEL HYATT M.D. ??on 05/14/2019 3:33 PM . Narrative 05/14/2019 3:33 PM [employer]ERN[employer] FLOOR SUPERVISOR EXAMINATION: XR ABDOMEN KUB PORTABLE HISTORY: R56.9: Seizure, NG tube placement COMPARISON: Comparison is made with a study from same day Procedure Note Hazel Hyatt MD - 05/14/2019 EXAMINATION: XR ABDOMEN KUB PORTABLE HISTORY: R56.9: Seizure, NG tube placement COMPARISON: Comparison is made with a study from same day FINDINGS/IMPRESSION: A gastric tube tip now projects over the distal stomach. Dictated by Tamar Cisse MD (technical operations vice president). This report was approved by Tamar Cisse M.D. on 05/14/2019 3:[address] HAZEL Thomason M.D. have personally reviewed and interpreted this examination/study. This report was electronically signed by HAZEL HYATT M.D. on05/14/2019 3:33 PM . Cuca Becker MD DIAGNOSTIC IMAGIN G ORDERABLES * GLUCOSE - POINT OF CARE (05/13/2019 5:07 PM [employer]ERNITY FLOOR SUPERVISOR) Glucose WB/POC 109 70 - 115 mg/dL 05/13/2019 5:12 PM MATERNITY FLOOR SUPERVISOR [facility] Specimen Type Arterial/C apillary 05/13/2019 5:12 PM MATERNITY FLOOR SUPERVISOR [facility] Blood BLOOD SPECIMEN / Unknown 05/13/2019 5:07 PM MATERNITY FLOOR SUPERVISOR 05/13/2019 5:12 PM MATERNITY FLOOR SUPERVISOR Sadiq Smith MD LAB - POINT OF CARE ORDERABLES [address] [phone] * XR ABDOMEN KUB PORTABLE (05/13/2019 1:46 PM MATERNITY FLOOR SUPERVISOR) Anatomical Region Laterality Modality Radiographic Cynthia ging 05/13/2019 1:50 PM MATERNITY FLOOR SUPERVISOR Impressions 05/14/2019 4:44 PM MATERNITY FLOOR SUPERVISOR FINDINGS/IMPRESSION: A nasogastric tube tip is in the gastric fundus with its side-port in the distal esophagus. Report drafted by Ariel Perez M.D. (resident) Dr. HAZEL Thomason M.D. have personally reviewed and interpreted this examination/study. This report was electronically signed by HAZEL HYATT M.D. ??on 05/14/2019 4:44 PM . Narrative 05/14/2019 4:44 PM MATERNITY FLOOR SUPERVISOR EXAMINATION: XR ABDOMEN KUB PORTABLE HISTORY: R56.9: Seizure COMPARISON: 05/12/2019 Procedure Note Hazel Hyatt MD - 05/14/2019 EXAMINATION: XR ABDOMEN KUB PORTABLE HISTORY: R56.9: Seizure COMPARISON: 05/12/2019 FINDINGS/IMPRESSION: A nasogastric tube tip is in the gastric fundus with its side-port inthe distal esophagus. Report drafted by Ariel Perez M.D. (resident) Dr. HAZEL Thomason M.D. have personally reviewed and interpreted this examination/study. This report was electronically signed by HAZEL HYATT M.D. on05/14/2019 4:44 PM . Cuca Becker MD DIAGNOSTIC IMAGIN G ORDERABLES * GLUCOSE - POINT OF CARE (05/13/2019 11:17 AM MATERNITY FLOOR SUPERVISOR) Glucose WB/POC 99 70 - 115 mg/dL 05/13/2019 11:23 AM MATERNITY FLOOR SUPERVISOR [facility] Specimen Type Arterial/C apillary 05/13/2019 11:[address] [facility] Blood BLOOD SPECIMEN / Unknown 05/13/2019 11:17 AM MATERNITY FLOOR SUPERVISOR 05/13/2019 11:23 AM MATERNITY FLOOR SUPERVISOR Sadiq Smith MD LAB - POINT OF CARE ORDERABLES Performing Organization Address City/[facility]/ZIP Co de Phone Number [address] [phone] * GLUCOSE - POINT OF CARE (05/13/2019 9:39 AM MATERNITY FLOOR SUPERVISOR) Glucose WB/POC 104 70 - 115 mg/dL 05/13/2019 9:[address] [facility] Specimen Type Arterial/C apillary 05/13/2019 9:[address] [facility] Blood BLOOD SPECIMEN / Unknown 05/13/2019 9:39 AM MATERNITY FLOOR SUPERVISOR 05/13/2019 9:44 AM MATERNITY FLOOR SUPERVISOR Sadiq Smith MD LAB - POINT OF CARE ORDERABLES [address] [phone] * PHOSPHORUS BLOOD (05/13/2019 4:15 AM MATERNITY FLOOR SUPERVISOR) Phosphorus 2.5 2.3 - 4.7 mg/dL 05/13/2019 4:[address] [facility] Blood BLOOD SPECIMEN / Unknown Lab Venipuncture / Unknown 05/13/2019 4:15 AM MATERNITY FLOOR SUPERVISOR 05/13/2019 4:26 AM MATERNITY FLOOR SUPERVISOR Devika Cross MD LAB - CHEMISTRY [facility] Performing Organization Address City/[facility]/ZIP Co de Phone Number [address] [phone] * MAGNESIUM BLOOD (05/13/2019 4:15 AM MATERNITY FLOOR SUPERVISOR) Magnesium 2.0 1.6 - 2.6 mg/dL 05/13/2019 4:[address] [facility] Blood BLOOD SPECIMEN / Unknown Lab Venipuncture / Unknown 05/13/2019 4:15 AM MATERNITY FLOOR SUPERVISOR 05/13/2019 4:26 AM MATERNITY FLOOR SUPERVISOR Devika Cross MD LAB - CHEMISTRY [facility]SHAL MEDEROS Performing Organization Address [facility] Co de Phone Number [address] [phone] * BASIC METABOLIC PANEL (CALCIUM TOTAL) (05/13/2019 4:15 AM MATERNITY FLOOR SUPERVISOR) BUN 7 7 - 26 mg/dL 05/13/2019 4:[address] [facility] Creatinine 0.7 0.6 - 1.2 mg/dL 05/13/2019 4:[address] [facility] Sodium 140 136 - 145 mmol/L 05/13/2019 4:[address] [facility] Potassium 3.8 3.5 - 4.5 mmol/L 05/13/2019 4:[address] [facility] Chloride 103 98 - 107 mmol/L 05/13/2019 4:[address] [facility] CO2 27 22 - 29 mmol/L 05/13/2019 4:[address] [facility] Glucose 93 70 - 115 mg/dL 05/13/2019 4:[address] [facility] Calcium 9.1 8.4 - 10.2 mg/dL 05/13/2019 4:[address] [facility] Anion Gap 14 8 - 18 05/13/2019 4:[address] [facility] BUN/Creatinine Ratio 10 7 - 23 05/13/2019 4:[address] [facility] Osmolality Calculated 288 270 - 300 mOsm/kg 05/13/2019 4:[address] [facility] eGFR >60 >60 mL/min/1.7 3 m2 05/13/2019 4:[address] [facility] Blood BLOOD SPECIMEN / Unknown Lab Venipuncture / Unknown 05/13/2019 4:15 AM MATERN[employer] FLOOR SUPERVISOR 05/13/2019 4:26 AM [facility] Devika Cross MD LAB - CHEMISTRY [facility]SHAL MEDEROS [facility] [address] [phone] * CBC W AUTO DIFFERENTIAL (05/13/2019 4:15 AM [facility]) WBC 9.9 3.5 - 10.5 10? 3 /uL 05/13/2019 7:[address] [facility] Comment:Confirmed by repeat analysis. RBC 4.53 4.30 - 5.70 10? 6 /uL 05/13/2019 7:[address] [facility] Hemoglobin 14.1 13.5 - 17.5 g/dL 05/13/2019 7:[address] [facility] Hematocrit 42.8 39.0 - 50.0 % 05/13/2019 7:[address] [facility] MCV 94.5 81.0 - 97.0 fL 05/13/2019 7:[address] [facility] MCH 31.1 28.0 - 34.0 pg 05/13/2019 7:[address] [facility] MCHC 32.9 32.0 - 36.0 g/dL 05/13/2019 7:[address] [facility] Platelet Count 183 150 - 400 10? 3 /uL 05/13/2019 7:[address] [facility] RDW-SD 41.5 36.0 - 50.0 fL 05/13/2019 7:[address] [facility] RDW-CV 12.0 11.2 - 14.8 % 05/13/2019 7:[address] [facility] MPV 12.4 9.3 - 12.8 fL 05/13/2019 7:[address] [facility] nRBC Absolute 0.00 0 10? 3 /uL 05/13/2019 7:[address] [facility] nRBC Auto 0.0 0 /100 WBC 05/13/2019 7:[address] [facility] Neutrophils % 65.1 35.0 - 70.0 % 05/13/2019 7:[address] [facility] Lymphocytes % 29.4 19.7 - 55.1 % 05/13/2019 7:[address] [facility] Monocytes % 5.0 3.0 - 15.0 % 05/13/2019 7:[address] [facility] Eosinophils % 0.1 0.0 - 6.0 % 05/13/2019 7:[address] [facility] Basophil % 0.1 0.0 - 1.5 % 05/13/2019 7:[address] [facility] Neutrophils Absolute 6.4 1.6 - 7.0 10? 3 /uL 05/13/2019 7:[address] [facility] Lymphocyte Absolute 2.9 0.8 - 2.9 10? 3 /uL 05/13/2019 7:[address] [facility] Monocytes Absolute 0.49 0.14 - 0.66 10? 3 /uL 05/13/2019 7:[address] [facility] Eosinophils Absolute 0.01 0.00 - 0.45 10? 3 /uL 05/13/2019 7:[address] [facility] Basophils Absolute 0.01 0.00 - 0.06 10? 3 /uL 05/13/2019 7:[address] [facility] Immature Granulocytes % 0.3 0.0 - 1.0 % 05/13/2019 7:[address] [facility] Blood BLOOD SPECIMEN / Unknown Lab Venipuncture / Unknown 05/13/2019 4:15 AM MATERNITY FLOOR SUPERVISOR 05/13/2019 4:26 AM [facility] Devika Cross MD LAB - HEMATOLOGY ORD ERABLES [address] [phone] * VALPROIC ACID LEVEL (05/13/2019 4:15 AM [facility]) Valproic Acid Total 53 50 - 100 mcg/mL 05/13/2019 4:56 AM MATERNITY FLOOR SUPERVISOR [facility] Blood BLOOD SPECIMEN / Unknown Lab Venipuncture / Unknown 05/13/2019 4:15 AM MATERNITY FLOOR SUPERVISOR 05/13/2019 4:26 AM MATERNITY FLOOR SUPERVISOR Josiane Escobedo MD LAB - CHEMISTRY [facility] [address] [phone] * GLUCOSE - POINT OF CARE (05/13/2019 4:13 AM MATERNITY FLOOR SUPERVISOR) Glucose WB/POC 90 70 - 115 mg/dL 05/13/2019 4:[address] [facility] Specimen Type Arterial/C apillary 05/13/2019 4:[address] [facility] Blood BLOOD SPECIMEN / Unknown 05/13/2019 4:13 AM MATERNITY FLOOR SUPERVISOR 05/13/2019 4:20 AM MATERNITY FLOOR SUPERVISOR Sadiq Smith MD LAB - POINT [place] [address], [facility] [phone] * GLUCOSE - POINT OF CARE (05/13/2019 12:17 AM MATERNITY FLOOR SUPERVISOR) Glucose WB/POC 110 70 - 115 mg/dL 05/13/2019 12:24 AM MATERNITY FLOOR SUPERVISOR [facility] Specimen Type Arterial/C apillary 05/13/2019 12:24 AM MATERNITY FLOOR SUPERVISOR [facility] Blood BLOOD SPECIMEN / Unknown 05/13/2019 12:17 AM MATERNITY FLOOR SUPERVISOR 05/13/2019 12:24 AM MATERNITY FLOOR SUPERVISOR Sadiq Smith MD LAB - POINT OF CARE ORDERABLES [address] [phone] * GLUCOSE - POINT OF CARE (05/12/2019 9:41 PM MATERNITY FLOOR SUPERVISOR) Glucose WB/POC 115 70 - 115 mg/dL 05/12/2019 9:44 PM MATERNITY FLOOR SUPERVISOR [facility] Specimen Type Arterial/C apillary 05/12/2019 9:44 PM MATERNITY FLOOR SUPERVISOR [facility] Blood BLOOD SPECIMEN / Unknown 05/12/2019 9:41 PM MATERNITY FLOOR SUPERVISOR 05/12/2019 9:44 PM MATERNITY FLOOR SUPERVISOR Sadiq Smith MD LAB - POINT OF CARE ORDERABLES [address] [phone] * (ABNORMAL) GLUCOSE - POINT OF CARE (05/12/2019 4:58 PM MATERNITY FLOOR SUPERVISOR) Glucose WB/POC 126(H) 70 - 115 mg/dL 05/12/2019 5:04 PM MATERNITY FLOOR SUPERVISOR [facility] Specimen Type Arterial/C apillary 05/12/2019 5:04 PM MATERNITY FLOOR SUPERVISOR [facility] Blood BLOOD SPECIMEN / Unknown 05/12/2019 4:58 PM MATERNITY FLOOR SUPERVISOR 05/12/2019 5:04 PM MATERNITY FLOOR SUPERVISOR Sadiq Smith MD LAB - POINT OF CARE ORDERABLES Performing Organization Address [facility]/ZIP Co de Phone Number [address] [phone] * GLUCOSE - POINT OF CARE (05/12/2019 12:21 PM MATERNITY FLOOR SUPERVISOR) Glucose WB/POC 105 70 - 115 mg/dL 05/12/2019 12:24 PM MATERNITY FLOOR SUPERVISOR [facility] Specimen Type Arterial/C apillary 05/12/2019 12:24 PM MATERNITY FLOOR SUPERVISOR [facility] Blood BLOOD SPECIMEN / Unknown 05/12/2019 12:21 PM MATERNITY FLOOR SUPERVISOR 05/12/2019 12:24 PM MATERNITY FLOOR SUPERVISOR Sadiq Smith MD LAB - POINT OF CARE ORDERABLES [facility] [address] [place] [address], [facility] [phone] * EEG VIDEO MONITORING (05/12/2019 11:59 AM MATERNITY FLOOR SUPERVISOR) Narrative Ck Feliciano MD - 05/12/2019 11:59 AM MATERNITY FLOOR SUPERVISOR Ck Feliciano MD ? 05/15/2019 10:57 AM [...] MD Nacho Sauer MD NEUROLOGY ORDERABLES * GLUCOSE - POINT OF CARE (05/12/2019 8:12 AM MATERNITY FLOOR SUPERVISOR) Glucose WB/POC 112 70 - 115 mg/dL 05/12/2019 8:22 AM MATERNITY FLOOR SUPERVISOR [facility] Specimen Type Arterial/C apillary 05/12/2019 8:22 AM MATERNITY FLOOR SUPERVISOR [facility] Blood BLOOD SPECIMEN / Unknown 05/12/2019 8:12 AM MATERNITY FLOOR SUPERVISOR 05/12/2019 8:22 AM MATERNITY FLOOR SUPERVISOR Sadiq Smith MD LAB - POINT OF CARE ORDERABLES [address] [phone] * (ABNORMAL) PHOSPHORUS BLOOD (05/12/2019 5:42 AM MATERNITY FLOOR SUPERVISOR) Phosphorus 2.2(L) 2.3 - 4.7 mg/dL 05/12/2019 6:[address] [facility] Blood BLOOD SPECIMEN / Unknown Lab Venipuncture / Unknown 05/12/2019 5:42 AM MATERNITY FLOOR SUPERVISOR 05/12/2019 5:51 AM MATERNITY FLOOR SUPERVISOR Devika Cross MD LAB - CHEMISTRY [facility] [address] [phone] * MAGNESIUM BLOOD (05/12/2019 5:42 AM MATERNITY FLOOR SUPERVISOR) Magnesium 2.0 1.6 - 2.6 mg/dL 05/12/2019 6:[address] [facility] Blood BLOOD SPECIMEN / Unknown Lab Venipuncture / Unknown 05/12/2019 5:42 AM MATERNITY FLOOR SUPERVISOR 05/12/2019 5:51 AM MATERNITY FLOOR SUPERVISOR Devika Cross MD LAB - CHEMISTRY [facility] [address] [phone] * (ABNORMAL) BASIC METABOLIC PANEL (CALCIUM TOTAL) (05/12/2019 5:42 AM MATERNITY FLOOR SUPERVISOR) Pathologist [facility] BUN 10 7 - 26 mg/dL 05/12/2019 6:[address] [facility] Creatinine 0.7 0.6 - 1.2 mg/dL 05/12/2019 6:[address] [facility] Sodium 140 136 - 145 mmol/L 05/12/2019 6:[address] [facility] Potassium 4.1 3.5 - 4.5 mmol/L 05/12/2019 6:[address] [facility] Chloride 108(H) 98 - 107 mmol/L 05/12/2019 6:[address] [facility] CO2 24 22 - 29 mmol/L 05/12/2019 6:[address] [facility] Glucose 140(H) 70 - 115 mg/dL 05/12/2019 6:[address] [facility] Calcium 8.5 8.4 - 10.2 mg/dL 05/12/2019 6:[address] [facility] Anion Gap 12 8 - 18 05/12/2019 6:[address] [facility] BUN/Creatinine Ratio 14 7 - 23 05/12/2019 6:[address] [facility] Osmolality Calculated 291 270 - 300 mOsm/kg 05/12/2019 6:[address] [facility] eGFR >60 >60 mL/min/1.7 3 m2 05/12/2019 6:[address] [facility] Blood BLOOD SPECIMEN / Unknown Lab Venipuncture / Unknown 05/12/2019 5:42 AM MATERNITY FLOOR SUPERVISOR 05/12/2019 5:51 AM [facility] Devika Cross MD LAB - CHEMISTRY [facility]SHAL MEDEROS [facility] Organization Address City/State/[facility] Co de Phone Number [address] [phone] * (ABNORMAL) CBC W AUTO DIFFERENTIAL (05/12/2019 5:42 AM [facility]) WBC 18.7(H) 3.5 - 10.5 10? 3 /uL 05/12/2019 6:[address] [facility] Comment:Confirmed by repeat analysis. RBC 4.05(L) 4.30 - 5.70 10? 6 /uL 05/12/2019 6:[address] [facility] Hemoglobin 12.7(L) 13.5 - 17.5 g/dL 05/12/2019 6:[address] [facility] Hematocrit 38.2(L) 39.0 - 50.0 % 05/12/2019 6:[address] [facility] MCV 94.3 81.0 - 97.0 fL 05/12/2019 6:[address] [facility] MCH 31.4 28.0 - 34.0 pg 05/12/2019 6:[address] [facility] MCHC 33.2 32.0 - 36.0 g/dL 05/12/2019 6:[address] [facility] Platelet Count 156 150 - 400 10? 3 /uL 05/12/2019 6:[address] [facility] RDW-SD 40.8 36.0 - 50.0 fL 05/12/2019 6:[address] [facility] RDW-CV 11.9 11.2 - 14.8 % 05/12/2019 6:[address] [facility] MPV 11.9 9.3 - 12.8 fL 05/12/2019 6:[address] [facility] nRBC Absolute 0.00 0 10? 3 /uL 05/12/2019 6:[address] [facility] nRBC Auto 0.0 0 /100 WBC 05/12/2019 6:[address] [facility] Neutrophils % 81.0(H) 35.0 - 70.0 % 05/12/2019 6:[address] [facility] Lymphocytes % 12.4(L) 19.7 - 55.1 % 05/12/2019 6:[address] [facility] Monocytes % 5.8 3.0 - 15.0 % 05/12/2019 6:[address] [facility] Eosinophils % 0.0 0.0 - 6.0 % 05/12/2019 6:[address] [facility] Basophil % 0.1 0.0 - 1.5 % 05/12/2019 6:[address] [facility] Neutrophils Absolute 15.2(H) 1.6 - 7.0 10? 3 /uL 05/12/2019 6:[address] [facility] Lymphocyte Absolute 2.3 0.8 - 2.9 10? 3 /uL 05/12/2019 6:[address] [facility] Monocytes Absolute 1.08(H) 0.14 - 0.66 10? 3 /uL 05/12/2019 6:[address] [facility] Eosinophils Absolute 0.00 0.00 - 0.45 10? 3 /uL 05/12/2019 6:[address] [facility] Basophils Absolute 0.02 0.00 - 0.06 10? 3 /uL 05/12/2019 6:[address] [facility] Immature Granulocytes % 0.7 0.0 - 1.0 % 05/12/2019 6:[address] [facility] Blood BLOOD SPECIMEN / Unknown Lab Venipuncture / Unknown 05/12/2019 5:42 AM MATERNITY FLOOR SUPERVISOR 05/12/2019 5:51 AM MATERNITY FLOOR SUPERVISOR Devika Cross MD LAB - HEMATOLOGY LUCI GUTIERREZ Performing Organization Address City/[facility]/ZIP Co de Phone Number [facility] [address] [phone] * HEMOGLOBIN A1C (05/12/2019 5:42 AM [facility]) Hemoglobin A1c 5.5 4.4 - 6.3 % 05/12/2019 11:[address] [facility] Estimated Average Glucose 111 mg/dL 05/12/2019 11:[address] [facility] Comment: HbA1c Interpretation: Treatment target values recommended by ADA and other clinical organizations should be used to evaluate metabolic control in patients. Treatment Target Values: Normal : < 5.7% Pre-diabetes: 5.7-6.4% Diabetes: Equal to or greater than 6.5% Reference: [place] [employer] Standards of Care in Diabetes -2014 In patients 70 years and older consider HbA1c target range of 7.0-7.5% Reference: ??Diabetes Mellitus in Older People: Position Statement on behalf of the International Association of Gerontology and Geriatrics (IAGG), the Diabetes Working Libertarian for Older People (EDWPOP), and the International Task Force of Experts in Diabetes. ??Lukas Matamoros, et al. J [place] [employer]. 2012 Test results diagnostic of diabetes should be repeated for confirmation. The Sebia Capillary 2 assay for the measurement of HbA1c is a National Glycohemoglobin Standardization Program (NGSP)certified method. Blood BLOOD SPECIMEN / Unknown Lab Venipuncture / Unknown 05/12/2019 5:42 AM MATERNITY FLOOR SUPERVISOR 05/12/2019 5:51 AM MATERNITY FLOOR SUPERVISOR Nacho Sauer MD LAB - CHEMISTRY [facility]SH[facility] MEDEROS [facility] [address] [place] [address] * (ABNORMAL) GLUCOSE - POINT OF CARE (05/12/2019 4:26 AM MATERNITY FLOOR SUPERVISOR) Glucose WB/POC 157(H) 70 - 115 mg/dL 05/12/2019 4:33 AM MATERNITY FLOOR SUPERVISOR [facility] Specimen Type Arterial/C apillary 05/12/2019 4:33 AM MATERNITY FLOOR SUPERVISOR [facility] Blood BLOOD SPECIMEN / Unknown 05/12/2019 4:26 AM MATERNITY FLOOR SUPERVISOR 05/12/2019 4:33 AM MATERNITY FLOOR SUPERVISOR Sadiq Smith MD LAB - POINT OF CARE ORDERABLES [address] [phone] * XR CHEST 1VW PORTABLE (05/12/2019 3:04 AM MATERNITY FLOOR SUPERVISOR) Anatomical Region Laterality Modality Chest Radiographic Cynthia ging 05/12/2019 9:07 AM MATERNITY FLOOR SUPERVISOR Impressions 05/12/2019 11:15 AM MATERNITY FLOOR SUPERVISOR FINDINGS/IMPRESSION: The enteric tube tube superimposes the stomach. Elevation of the left hemidiaphragm is unchanged. There is no focal consolidation, pleural effusion, or pneumothorax. The cardiac silhouette is normal. The mediastinal silhouette is normal. Report dictated by Fredrick Lira M.D. (technical operations vice president). This report was approved ??by Fredrick Lira Dr ?? on 05/12/2019 10:49 AM . I, . Dr. EDILBERTO MARTINEZ MD have personally reviewed and interpreted this examination/study. This report was electronically signed by Dr. EDILBERTO MARTINEZ MD ??on 05/12/2019 11:15 AM . Narrative 05/12/2019 11:15 AM MATERNITY FLOOR SUPERVISOR EXAMINATION: XR CHEST 1VW PORTABLE, 05/12/2019 3:04 AM HISTORY: R56.9: Seizure COMPARISON: 05/09/2019 Procedure Note Edilberto Martinez MD - 05/12/2019 EXAMINATION: XR CHEST 1VW PORTABLE, 05/12/2019 3:04 AM HISTORY: R56.9: Seizure COMPARISON: 05/09/2019 FINDINGS/IMPRESSION: The enteric tube tube superimposes the stomach. Elevation of the left hemidiaphragm is unchanged. There is no focal consolidation, pleural effusion, or pneumothorax. The cardiac silhouette is normal. The mediastinal silhouette is normal. Report dictated by Fredrick Lira M.D. (technical operations vice president). This report was approved by Fredrick Lira Dr on 05/12/2019 10:[address] EDILBERTO Thomason MD have personally reviewed and interpretedthis examination/study. This report was electronically signed by Dr. EDILBERTO MARTINEZ MD on 05/12/2019 11:15 AM . Nacho Sauer MD DIAGNOSTIC IMAGING O RDERABLES * XR ABDOMEN KUB PORTABLE (05/12/2019 3:04 AM MATERNITY FLOOR SUPERVISOR) Anatomical Region Laterality Modality Radiographic Cynthia ging 05/12/2019 9:13 AM MATERNITY FLOOR SUPERVISOR Impressions 05/12/2019 11:15 AM MATERNITY FLOOR SUPERVISOR IMPRESSION: A gastric tube superimposes stomach. Report dictated by Fredrick Lira MD (technical operations vice president). This report was approved ??by Fredrick Lira Dr ?? on 05/12/2019 10:50 AM . Paddy, Dr. Dr. EDILBERTO MARTINEZ MD have personally reviewed and interpreted this examination/study. This report was electronically signed by Dr. EDILBERTO MARTINEZ MD ??on 05/12/2019 11:15 AM . Narrative 05/12/2019 11:15 AM MATERNITY FLOOR SUPERVISOR EXAMINATION: XR ABDOMEN KUB PORTABLE HISTORY: R56.9: Seizure COMPARISON: 05/10/2019 Procedure Note Edilberto Martinez MD - 05/12/2019 EXAMINATION: XR ABDOMEN KUB PORTABLE HISTORY: R56.9: Seizure COMPARISON: 05/10/2019 IMPRESSION: A gastric tube superimposes stomach. Report dictated by Fredrick Lira MD (technical operations vice president). This report was approved by Fredrick Lira Dr on 05/12/2019 10:[address] EDILBERTO Thomason MD have personally reviewed and interpretedthis examination/study. This report was electronically signed by Dr. EDILBERTO MARTINEZ MD on 05/12/2019 11:15 AM . Nacho Sauer MD DIAGNOSTIC IMAGING O RDERABLES * (ABNORMAL) GLUCOSE - POINT OF CARE (05/12/2019 12:03 AM MATERNITY FLOOR SUPERVISOR) Glucose WB/POC 160(H) 70 - 115 mg/dL 05/12/2019 12:10 AM MATERNITY FLOOR SUPERVISOR [facility] Specimen Type Arterial/C apillary 05/12/2019 12:10 AM MATERNITY FLOOR SUPERVISOR [facility] Blood BLOOD SPECIMEN / Unknown 05/12/2019 12:03 AM MATERNITY FLOOR SUPERVISOR 05/12/2019 12:10 AM MATERNITY FLOOR SUPERVISOR Sadiq Smith MD LAB - POINT OF CARE ORDERABLES [address] [phone] * (ABNORMAL) GLUCOSE - POINT OF CARE (05/11/2019 6:07 PM MATERNITY FLOOR SUPERVISOR) Glucose WB/POC 247(H) 70 - 115 mg/dL 05/11/2019 6:13 PM MATERNITY FLOOR SUPERVISOR [facility] Specimen Type Arterial/C apillary 05/11/2019 6:13 PM MATERNITY [employer] [facility] Blood BLOOD SPECIMEN / Unknown 05/11/2019 6:07 PM [employer]PER[employer] 05/11/2019 6:13 PM [employer]PER[employer] Sadiq Smith MD LAB - POINT OF CARE ORDERABLES [address] [phone] * (ABNORMAL) CULTURE URINE (05/11/2019 2:25 PM [employer]OR SUPERVISOR) Culture Urine >100,000 CFU/mL Escherichia coli(A) JELLY 05/13/2019 5:01 AM [employer]OR SUPER[employer] [facility] MICROBIOLOGY Urine URINE SPECIMEN OBTAINED BY SINGLE CATHETERIZATION OF URINARY BLADDER / Unknown Collection / Unknown 05/11/2019 2:25 PM [employer] SUPER[employer]OR 05/11/2019 2:37 PM [employer]OR SUPERVISOR Narrative Organism Antibiotic Method Susceptibility Escherichia coli Amikacin JELLY <=2 ug/mL: Susceptible Escherichia coli Ampicillin JELLY <=2 ug/mL: Susceptible Escherichia coli Ampicillin-sulbactam JELLY <=2 ug/mL: Susceptible Escherichia coli Cefazolin JELLY <=4 ug/mL: Susceptible Escherichia coli Cefepime JELLY <=1 ug/mL: Susceptible Escherichia coli Ceftriaxone JELLY <=1 ug/mL: Susceptible Escherichia coli Ciprofloxacin JELLY >=4 ug/mL: Resistant Escherichia coli Extended-Spectrum Beta-Lactamase JELLY NEG ug/mL: Neg Escherichia coli Gentamicin JELLY <=1 ug/mL: Susceptible Escherichia coli Meropenem JELLY <=0.25 ug/mL: Susceptible Escherichia coli Nitrofurantoin JELLY <=16 ug/mL: Susceptible Escherichia coli Piperacillin-tazobactam JELLY <=4 ug/mL: Susceptible Escherichia coli Tobramycin JELLY <=1 ug/mL: Susceptible Escherichia coli Trimethoprim-sulfame thoxaz ole JELLY >=320 ug/mL: Resistant Comment: Interpretive criteria are for cefazolin when cefazolin is used for therapy of uncomplicated UTI due to E. coli, K. pneumoniae, and P. mirabilis. May also be used to predict results for the oral agents cefaclor, cefdinir, cefpodoxime, cefprozil, cefuroxime, cephalexin, and lorcarbef when used to treat uncomplicated UTI due to E. coli, K. pneumoniae, and P. mirabilis. Devika Crsos MD LAB - MICROBIOLOGY O RDERABLES Performing Organization Address City/State/[facility] de Phone Number [facility]CRO[facility] 300 [facility] [address] [phone] * (ABNORMAL) GLUCOSE - POINT OF CARE (05/11/2019 12:04 PM MATERNITY FLOOR SUPERVISOR) [facility] Glucose WB/POC 181(H) 70 - 115 mg/dL 05/11/2019 12:10 PM MATERNITY FLOOR SUPERVISOR [facility] Specimen Type Arterial/C apillary 05/11/2019 12:10 PM MATERNITY FLOOR SUPERVISOR [facility] Blood BLOOD SPECIMEN / Unknown 05/11/2019 12:04 PM MATERNITY FLOOR SUPERVISOR 05/11/2019 12:10 PM MATERNITY FLOOR SUPERVISOR Sadiq Smith MD LAB - POINT OF CARE ORDERABLES [facility] [address] [phone] * (ABNORMAL) URINALYSIS W/MICROSCOPIC NO CULTURE (05/11/2019 8:03 AM [facility]) Color UA Yellow Straw, Yellow, Colorless 05/11/2019 1:[address] [facility] Clarity UA Cloudy(A) Clear, Slt Cloudy 05/11/2019 1:[address] [facility] Specific [place] UA 1.010 1.005 - 1.030 05/11/2019 1:[address] [facility] pH UA 6.0 5.0 - 8.0 pH 05/11/2019 1:[address] [facility] Protein UA Negative Negative mg/dL 05/11/2019 1:[address] [facility] Glucose UA 3+(A) Negative mg/dL 05/11/2019 1:[address] [facility] Ketone UA Negative Negative mg/dL 05/11/2019 1:[address] [facility] Bilirubin UA Negative Negative mg/dL 05/11/2019 1:[address] [facility] Blood UA Negative Negative 05/11/2019 1:[address] [facility] Nitrite UA Negative Negative 05/11/2019 1:[address] [facility] Leukocyte Esterase 3+(A) Negative 05/11/2019 1:[address] [facility] Urobilinogen UA 4.0(A) Negative mg/dL 05/11/2019 1:[address] [facility] RBC UA 3-5 None Seen, 0-2, 3-5 /HPF 05/11/2019 1:[address] [facility] WBC UA 21-50(A) None Seen, 0-5 /HPF 05/11/2019 1:[address] [facility] Bacteria UA 1+(A) None, Trace /HPF 05/11/2019 1:[address] [facility] Squamous Epithelial Cells UA None Seen None Seen, 0-2 /HPF 05/11/2019 1:[address] [facility] Mucus UA 1+ None, 1+ /LPF 05/11/2019 1:[address] [facility] Urine URINE SPECIMEN OBTAINED BY SINGLE CATHETERIZATION OF URINARY BLADDER / Unknown Collection / Unknown 05/11/2019 8:03 AM MATERNITY FLOOR SUPERVISOR 05/11/2019 12:49 PM MATERNITY FLOOR SUPERVISOR Narrative [facility] - 05/11/2019 1:22 PM MATERNITY FLOOR SUPERVISOR Nacho Sauer MD LAB - URINALYSIS ORD ERABLES Performing Organization Address City/[facility]/ZIP Co de Phone Number [facility] [address] [place] [address], [facility] [phone] * (ABNORMAL) GLUCOSE - POINT OF CARE (05/11/2019 6:13 AM MATERNITY FLOOR SUPERVISOR) Glucose WB/POC 154(H) 70 - 115 mg/dL 05/11/2019 6:17 AM MATERNITY FLOOR SUPERVISOR [facility] Specimen Type Arterial/C apillary 05/11/2019 6:17 AM MATERNITY FLOOR SUPERVISOR [facility] Blood BLOOD SPECIMEN / Unknown 05/11/2019 6:13 AM MATERNITY FLOOR SUPERVISOR 05/11/2019 6:17 AM MATERNITY FLOOR SUPERVISOR Sadiq Smith MD LAB - POINT OF CARE ORDERABLES Performing Organization Address City/[facility] [place] [address], [facility] [phone] * MRI BRAIN WWO CONTRAST (05/11/2019 5:28 AM MATERNITY FLOOR SUPERVISOR) Anatomical Region Laterality Modality Head Magnetic Resonan ce 05/11/2019 9:16 AM MATERNITY FLOOR SUPERVISOR Impressions 05/11/2019 9:57 AM MATERNITY FLOOR SUPERVISOR IMPRESSION: Large area of cortical signal abnormality involving [...] is less likely given the nonvascular distribution. Right hippocampus demonstrates diffuse asymmetric atrophy as compared to the left hippocampus. There is increased FLAIR signal in the residual hippocampus. This finding is likely related to seizures. 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 Extensive volume loss of the cerebellar hemispheres and brainstem. Moderate to severe cerebral volume loss. 2.2 x 1.6 cm enhancing well-defined lobulated polypoid lesion in the anterior aspect of the right maxillary sinus. This lesion is present on the CT scan from 08/27/2016 and on 01/14/2019, without calcification or bony erosion/remodeling. It may represent an inverted papilloma or other nonaggressive sinus lesion. I, Dr. VIVIAN ORTIZ have personally reviewed and interpreted this examination/study. This report was electronically signed by VIVIAN ORTIZ ??on 05/11/2019 9:57 AM . Narrative 05/11/2019 9:57 AM MATERNITY FLOOR SUPERVISOR EXAMINATION: Magnetic resonance imaging (MRI) of the brain without and with contrast HISTORY: R56.9: Seizure TECHNIQUE: MRI of the brain was performed prior to and following the uneventful administration of 5 in the left Gadavist intravenous contrast according to a seizure protocol. COMPARISON: Multiple prior studies were reviewed, including MRI of the brain from 05/08/2019 performed at another institution MRI of the brain from 04/13/2015. FINDINGS: There is large area of cortical signal abnormality involving the right parietal, temporal and occipital lobes, separate cortical area in right frontal lobe and multiple areas in the right medial thalamus. As compared to the study from 05/08/2019, the diffusion weighted signal abnormality is decreased with no definite obstruction and ADC values and the cortical edema/thickening and subcortical white matter FLAIR hyperintensity has increased. There is some effacement of the involved sulci. There is no significant mass effect on the ventricles. There is no susceptibility artifact or enhancement in this region. The right hippocampus demonstrates diffuse asymmetric atrophy as compared to the left hippocampus. There is increased FLAIR signal in the residual hippocampus. No evidence of acute or chronic hemorrhage is identified. There is extensive volume loss of the cerebellar hemispheres and brainstem. There is moderate to severe cerebral volume loss with ex vacuo dilation of the sulci and ventricles. These findings are grossly unchanged since 2014. 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 Mild chronic microvascular ischemic changes are seen. There is a partially empty sella turcica. There is a 2.2 x 1.6 cm lobulated polypoid lesion in the anterior aspect of the right maxillary sinus which demonstrates T2 weighted hypointense component and diffuse solid enhancement. This lesion is present on the CT scan from 08/27/2016 and on 01/14/2019, without calcification or bony erosion/remodeling. Normal flow voids are demonstrated in the carotid arteries and basilar artery. The calvarium and visualized cervical spine appear normal. Procedure Note Vivina Ortiz MD - 05/11/2019 EXAMINATION: Magnetic resonance imaging (MRI) of the brain without and with contrast HISTORY: R56.9: Seizure TECHNIQUE: MRI of the brain was performed prior to and following the uneventful administration of 5 in the left Gadavist intravenous contrast according to a seizure protocol. COMPARISON: Multiple prior studies were reviewed, including MRI of the brain from 05/08/2019 performed at another institution MRI of the brain from 04/13/2015. FINDINGS: There is large area of cortical signal abnormality involving the right parietal, temporal and occipital lobes, separate cortical area in right frontal lobe and multiple areas in the right medial thalamus. Ascompared to the study from 05/08/2019, the diffusion weighted signal abnormalityis decreased with no definite obstruction and ADC values and the cortical edema/thickening and subcortical white matter FLAIR hyperintensity has increased. There is some effacement of the involved sulci. There is no significant mass effect on the ventricles. There is no susceptibility artifact or enhancement in this region. The right hippocampus demonstrates diffuse asymmetric atrophy ascompared to the left hippocampus. There is increased FLAIR signal in the residual hippocampus. No evidence of acute or chronic hemorrhage is identified. There is extensive volume loss of the cerebellar hemispheres and brainstem. There is moderate to severe cerebral volume loss with exvacuo dilation of the sulci and ventricles. These findings are grosslyunchanged since 2014. 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 Mildchronic microvascular ischemic changes are seen. 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 There is a 2.2 x 1.6 cm lobulated polypoid lesion in the anterior aspect of the right maxillary sinus which demonstrates T2 weighted hypointense component and diffuse solid enhancement. This lesion is present on theCT scan from 08/27/2016 and on 01/14/2019, without calcification or bony erosion/remodeling. Normal flow voids are demonstrated in the carotid arteries and basilar artery. The calvarium and visualized cervical spine appear normal. IMPRESSION: Large area of cortical signal abnormality involving the right parietal, temporal and occipital lobes, separate cortical area in right frontallobe and multiple areas in the right medial thalamus. As compared to thestudy from 05/08/2019, the restricted diffusion has resolved in the short interval (possibly pseudo-normalization) but the corticaledema/thickening and subcortical white matter FLAIR hyperintensity has increased. Thereis no susceptibility artifact or enhancement in this region. Thisappearance is nonspecific. Given the clinical presentation and unilateral signal abnormality, status epilepticus is likely. Alternatively, encephalitismay have similar appearance. Acute infarct is less likely given the nonvascular distribution. Right hippocampus demonstrates diffuse asymmetric atrophy as compared to the left hippocampus. There is increased FLAIR signal in the residual hippocampus. This finding is likely related to seizures. 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 Extensive volume loss of the cerebellar hemispheres and brainstem. Moderate to severe cerebral volume loss. 2.2 x 1.6 cm enhancing well-defined lobulated polypoid lesion in the anterior aspect of the right maxillary sinus. This lesion is present on the CT scan from 08/27/2016 and on 01/14/2019, without calcification orbony erosion/remodeling. It may represent an inverted papilloma or other nonaggressive sinus lesion. I, Dr. VIVIAN ORTIZ have personally reviewed and interpreted this examination/study. This report was electronically signed by VIVIAN ORTIZ on 05/11/2019 9:57 AM . Josiane Escobedo MD MR ORDERABLES * PHOSPHORUS BLOOD (05/11/2019 2:59 AM MATERNITY FLOOR SUPERVISOR) Phosphorus 2.8 2.3 - 4.7 mg/dL 05/11/2019 3:36 AM MATERNITY FLOOR SUPERVISOR [facility] Blood BLOOD SPECIMEN / Unknown Lab Venipuncture / Unknown 05/11/2019 2:59 AM MATERNITY FLOOR SUPERVISOR 05/11/2019 3:14 AM MATERNITY FLOOR SUPERVISOR Devika Cross MD LAB - CHEMISTRY [facility] Organization Address City/State/ZIP Co de Phone Number [address] [phone] * MAGNESIUM BLOOD (05/11/2019 2:59 AM MATERNITY FLOOR SUPERVISOR) Magnesium 1.7 1.6 - 2.6 mg/dL 05/11/2019 3:[address] [facility] Blood BLOOD SPECIMEN / Unknown Lab Venipuncture / Unknown 05/11/2019 2:59 AM MATERNITY FLOOR SUPERVISOR 05/11/2019 3:14 AM MATERNITY FLOOR SUPERVISOR Devika Cross MD LAB - CHEMISTRY MARSHAL MEDEROS [facility] [address] [phone] * (ABNORMAL) BASIC METABOLIC PANEL (CALCIUM TOTAL) (05/11/2019 2:59 AM MATERNITY FLOOR SUPERVISOR) BUN 12 7 - 26 mg/dL 05/11/2019 3:[address] [facility] Creatinine 0.7 0.6 - 1.2 mg/dL 05/11/2019 3:[address] [facility] Sodium 137 136 - 145 mmol/L 05/11/2019 3:[address] [facility] Potassium 4.0 3.5 - 4.5 mmol/L 05/11/2019 3:[address] [facility] Chloride 104 98 - 107 mmol/L 05/11/2019 3:[address] [facility] CO2 22 22 - 29 mmol/L 05/11/2019 3:[address] [facility] Glucose 166(H) 70 - 115 mg/dL 05/11/2019 3:[address] [facility] Calcium 8.7 8.4 - 10.2 mg/dL 05/11/2019 3:[address] [facility] Anion Gap 15 8 - 18 05/11/2019 3:[address] [facility] BUN/Creatinine Ratio 17 7 - 23 05/11/2019 3:[address] [facility] Osmolality Calculated 288 270 - 300 mOsm/kg 05/11/2019 3:[address] [facility] eGFR >60 >60 mL/min/1.7 3 m2 05/11/2019 3:[address] [facility] Blood BLOOD SPECIMEN / Unknown Lab Venipuncture / Unknown 05/11/2019 2:59 AM MATERNITY FLOOR SUPERVISOR 05/11/2019 3:14 AM MATERNITY FLOOR SUPERVISOR Devika Cross MD LAB - CHEMISTRY MARSHAL MEDEROS [facility] [address] [phone] * (ABNORMAL) CBC W AUTO DIFFERENTIAL (05/11/2019 2:59 AM MATERNITY FLOOR SUPERVISOR) WBC 5.2 3.5 - 10.5 10? 3 /uL 05/11/2019 3:[address] [facility] RBC 4.10(L) 4.30 - 5.70 10? 6 /uL 05/11/2019 3:[address] [facility] Hemoglobin 12.7(L) 13.5 - 17.5 g/dL 05/11/2019 3:[address] [facility] Hematocrit 38.2(L) 39.0 - 50.0 % 05/11/2019 3:[address] [facility] MCV 93.2 81.0 - 97.0 fL 05/11/2019 3:[address] [facility] MCH 31.0 28.0 - 34.0 pg 05/11/2019 3:[address] [facility] MCHC 33.2 32.0 - 36.0 g/dL 05/11/2019 3:[address] [facility] Platelet Count 161 150 - 400 10? 3 /uL 05/11/2019 3:[address] [facility] RDW-SD 39.6 36.0 - 50.0 fL 05/11/2019 3:[address] [facility] RDW-CV 11.6 11.2 - 14.8 % 05/11/2019 3:[address] [facility] MPV 11.0 9.3 - 12.8 fL 05/11/2019 3:[address] [facility] nRBC Absolute 0.00 0 10? 3 /uL 05/11/2019 3:[address] [facility] nRBC Auto 0.0 0 /100 WBC 05/11/2019 3:[address] [facility] Neutrophils % 80.6(H) 35.0 - 70.0 % 05/11/2019 3:[address] [facility] Lymphocytes % 18.6(L) 19.7 - 55.1 % 05/11/2019 3:[address] [facility] Monocytes % 0.4(L) 3.0 - 15.0 % 05/11/2019 3:[address] [facility] Eosinophils % 0.0 0.0 - 6.0 % 05/11/2019 3:[address] [facility] Basophil % 0.0 0.0 - 1.5 % 05/11/2019 3:[address] [facility] Neutrophils Absolute 4.2 1.6 - 7.0 10? 3 /uL 05/11/2019 3:[address] [facility] Lymphocyte Absolute 1.0 0.8 - 2.9 10? 3 /uL 05/11/2019 3:[address] [facility] Monocytes Absolute 0.02(L) 0.14 - 0.66 10? 3 /uL 05/11/2019 3:[address] [facility] Eosinophils Absolute 0.00 0.00 - 0.45 10? 3 /uL 05/11/2019 3:[address] [facility] Basophils Absolute 0.00 0.00 - 0.06 10? 3 /uL 05/11/2019 3:[address] [facility] Immature Granulocytes % 0.4 0.0 - 1.0 % 05/11/2019 3:[address] [facility] Blood BLOOD SPECIMEN / Unknown Lab Venipuncture / Unknown 05/11/2019 2:59 AM MATERNITY FLOOR SUPERVISOR 05/11/2019 3:14 AM [facility] Devika Cross MD LAB - HEMATOLOGY ORD ERABLES [facility] [address] [phone] * (ABNORMAL) GLUCOSE - POINT OF CARE (05/10/2019 11:58 PM MATERNITY FLOOR SUPERVISOR) Glucose WB/POC 191(H) 70 - 115 mg/dL 05/11/2019 7:[address] [facility] Specimen Type Arterial/C apillary 05/11/2019 7:33 AM MATERNITY FLOOR SUPERVISOR [facility] Blood BLOOD SPECIMEN / Unknown 05/10/2019 11:58 PM MATERNITY FLOOR SUPERVISOR 05/11/2019 7:33 AM MATERNITY FLOOR SUPERVISOR Sadiq Smith MD LAB - POINT OF CARE ORDERABLES [facility] [address] [place] [address], [facility] [phone] * XR ABDOMEN KUB (05/10/2019 11:42 PM MATERNITY FLOOR SUPERVISOR) Anatomical Region Laterality Modality Abdomen Radiographic Cynthia ging 05/11/2019 8:21 AM MATERNITY FLOOR SUPERVISOR Impressions 05/11/2019 8:55 AM MATERNITY FLOOR SUPERVISOR IMPRESSION: No radiopaque foreign bodies identified. Dictated by Nevin Naidu MD (technical operations vice president). I, Dr. SHARIF GOULD have personally reviewed and interpreted this examination/study. This report was electronically signed by SHARIF GOULD ??on 05/11/2019 8:55 AM . Narrative 05/11/2019 8:55 AM MATERNITY FLOOR SUPERVISOR ORDER DATE: 05/10/2019 11:42 PM EXAMINATION: XR ABDOMEN KUB HISTORY: R56.9: Seizure COMPARISON: 05/10/2019 at 11:04 AM FINDINGS: The enteric tube terminates in the stomach. There are no ??dilated bowel loops. There appears to be a focal region of bowel wall thickening in the region of the hepatic flexure, of uncertain significance. Free air cannot be excluded on this supine image.The visible osseous structures are intact. No radiopaque foreign body seen. Procedure Note Sharif Gould MD - 05/11/2019 ORDER DATE: 05/10/2019 11:42 PM EXAMINATION: XR ABDOMEN KUB HISTORY: R56.9: Seizure COMPARISON: 05/10/2019 at 11:04 AM FINDINGS: The enteric tube terminates in the stomach. There are no dilated bowel loops. There appears to be a focal region of bowel wall thickening in the region of the hepatic flexure, of uncertain significance. Free air cannot be excluded on this supine image.Thevisible osseous structures are intact. No radiopaque foreign body seen. IMPRESSION: No radiopaque foreign bodies identified. Dictated by Nevin Naidu MD (technical operations vice president). I, Dr. SHARIF GOULD have personally reviewed and interpreted this examination/study. This report was electronically signed by SHARIF GOULD on 05/11/20198:55 AM . Nacho Sauer MD DIAGNOSTIC IMAGING O RDERABLES * GLUCOSE - POINT OF CARE (05/10/2019 6:07 PM MATERNITY FLOOR SUPERVISOR) Glucose WB/POC 105 70 - 115 mg/dL 05/10/2019 6:10 PM MATERNITY FLOOR SUPERVISOR [facility] Specimen Type Arterial/C apillary 05/10/2019 6:10 PM MATERNITY FLOOR SUPERVISOR [facility] Blood BLOOD SPECIMEN / Unknown 05/10/2019 6:07 PM MATERNITY FLOOR SUPERVISOR 05/10/2019 6:10 PM MATERNITY FLOOR SUPERVISOR Sadiq Smith MD LAB - POINT OF CARE ORDERABLES Performing Organization Address City/[facility]/ZIP Co de Phone Number [address] [phone] * GLUCOSE - POINT OF CARE (05/10/2019 1:01 PM MATERNITY FLOOR SUPERVISOR) Glucose WB/POC 85 70 - 115 mg/dL 05/10/2019 1:04 PM MATERNITY FLOOR SUPERVISOR [facility] Specimen Type Arterial/C apillary 05/10/2019 1:04 PM MATERNITY FLOOR SUPERVISOR [facility] Blood BLOOD SPECIMEN / Unknown 05/10/2019 1:01 PM MATERNITY FLOOR SUPERVISOR 05/10/2019 1:04 PM MATERNITY FLOOR SUPERVISOR Sadiq Smith MD LAB - POINT [place] [address], [facility] [phone] * XR ABDOMEN KUB PORTABLE (05/10/2019 11:16 AM MATERNITY FLOOR SUPERVISOR) Anatomical Region Laterality Modality Radiographic Cynthia ging 05/10/2019 11:1 9 AM MATERNITY FLOOR SUPERVISOR Impressions 05/10/2019 12:44 PM MATERNITY FLOOR SUPERVISOR FINDINGS/IMPRESSION: The enteric tube terminates in the gastric fundus. Report dictated by Dav Vick MD (technical operations vice president) I, Dr. SHARIF GOULD have personally reviewed and interpreted this examination/study. This report was electronically signed by SHARIF GOULD ??on 05/10/2019 12:44 PM . Narrative 05/10/2019 12:44 PM MATERNITY FLOOR SUPERVISOR ORDER DATE: 05/10/2019 11:17 AM EXAMINATION: XR ABDOMEN KUB PORTABLE HISTORY: R56.9: Seizure COMPARISON: None Procedure Note Sharif Gould MD - 05/10/2019 ORDER DATE: 05/10/2019 11:17 AM EXAMINATION: XR ABDOMEN KUB PORTABLE HISTORY: R56.9: Seizure COMPARISON: None FINDINGS/IMPRESSION: The enteric tube terminates in the gastric fundus. Report dictated by Dav Vick MD (technical operations vice president) I, Dr. SHARIF GOULD have personally reviewed and interpreted this examination/study. This report was electronically signed by SHARIF GOULD on 05/10/201912:44 PM . Sadiq Smith MD [facility] ORDERABLES * (ABNORMAL) VITAMIN D 25-HYDROXY (05/10/2019 8:32 AM MATERNITY FLOOR SUPERVISOR) Vitamin D, 25 Hydroxy 28.9(L) See comment: ng/mL 05/10/2019 11:15 AM MATERNITY FLOOR SUPERVISOR [facility] Comment: The recommendations for 25-Hydroxy Vitamin [...] Reference: ?The Endocrine Society Clinical Practice Guidelines. 2011 ? Blood BLOOD SPECIMEN / Unknown Lab Venipuncture / Unknown 05/10/2019 8:32 AM MATERNITY FLOOR SUPERVISOR 05/10/2019 8:44 AM MATERNITY FLOOR SUPERVISOR Devika Cross MD LAB - CHEMISTRY MARSHAL MEDEROS Performing Organization Address [facility] Co de Phone Number [facility] [address] [phone] * LEVETIRACETAM LEVEL (05/10/2019 8:32 AM MATERNITY FLOOR SUPERVISOR) Levetiracetam 25.9 10.0 - 40.0 ug/mL 05/12/2019 2:08 PM MATERNITY FLOOR SUPERVISOR [facility] ([facility]) Comment: This test was developed and its performance characteristics determined by [facility]. It has not been cleared or approved by the Food and Drug Administration. Blood BLOOD SPECIMEN / Unknown Lab Venipuncture / Unknown 05/10/2019 8:32 AM MATERNITY FLOOR SUPERVISOR 05/10/2019 8:44 AM MATERNITY FLOOR SUPERVISOR Narrative [facility] ([facility]) - 05/12/2019 2:08 PM MATERNITY FLOOR SUPERVISOR Performed at: ??01 - [facility] ??[id number] Judge: Terence Ramos MD, Phone: ??[phone] Devika Cross MD LAB - THERAPEUTIC DR DIAZ MONITORING ORDERABLES Performing Organization Address [facility] Co de Phone Number [facility] ([facility]) [address] [place] [address], [place] * PHOSPHORUS BLOOD (05/10/2019 3:10 AM MATERNITY FLOOR SUPERVISOR) Phosphorus 3.0 2.3 - 4.7 mg/dL 05/10/2019 3:44 AM MATERNITY FLOOR SUPERVISOR [facility] Blood BLOOD SPECIMEN / Unknown Lab Venipuncture / Unknown 05/10/2019 3:10 AM MATERNITY FLOOR SUPERVISOR 05/10/2019 3:23 AM MATERNITY FLOOR SUPERVISOR Nacho Sauer MD LAB - CHEMISTRY MARSHAL MEDEROS Performing Organization Address [facility]/ZIP Co de Phone Number [address] [phone] * MAGNESIUM BLOOD (05/10/2019 3:10 AM MATERNITY FLOOR SUPERVISOR) Magnesium 1.8 1.6 - 2.6 mg/dL 05/10/2019 3:44 AM MATERNITY FLOOR SUPERVISOR [facility] Blood BLOOD SPECIMEN / Unknown Lab Venipuncture / Unknown 05/10/2019 3:10 AM MATERNITY FLOOR SUPERVISOR 05/10/2019 3:23 AM MATERNITY FLOOR SUPERVISOR Nacho Sauer MD LAB - CHEMISTRY MARSHAL MEDEROS Performing Organization Address [facility] Co de Phone Number [address] [phone] * VALPROIC ACID LEVEL (05/10/2019 3:10 AM MATERNITY FLOOR SUPERVISOR) Valproic Acid Total 66 50 - 100 mcg/mL 05/10/2019 3:52 AM MATERNITY FLOOR SUPERVISOR [facility] Blood BLOOD SPECIMEN / Unknown Lab Venipuncture / Unknown 05/10/2019 3:10 AM MATERNITY FLOOR SUPERVISOR 05/10/2019 3:23 AM MATERNITY FLOOR SUPERVISOR Nacho Sauer MD LAB - CHEMISTRY MARSHAL MEDEROS Performing Organization Address [facility]/ZIP Co de Phone Number [address] [phone] * CBC W AUTO DIFFERENTIAL (05/10/2019 3:10 AM MATERNITY FLOOR SUPERVISOR) WBC 6.1 3.5 - 10.5 10? 3 /uL 05/10/2019 3:[address] [facility] RBC 4.62 4.30 - 5.70 10? 6 /uL 05/10/2019 3:[address] [facility] Hemoglobin 14.3 13.5 - 17.5 g/dL 05/10/2019 3:[address] [facility] Hematocrit 43.9 39.0 - 50.0 % 05/10/2019 3:[address] [facility] MCV 95.0 81.0 - 97.0 fL 05/10/2019 3:[address] [facility] MCH 31.0 28.0 - 34.0 pg 05/10/2019 3:[address] [facility] MCHC 32.6 32.0 - 36.0 g/dL 05/10/2019 3:[address] [facility] Platelet Count 170 150 - 400 10? 3 /uL 05/10/2019 3:[address] [facility] RDW-SD 40.4 36.0 - 50.0 fL 05/10/2019 3:28 AM [facility] RDW-CV 11.8 11.2 - 14.8 % 05/10/2019 3:[address] [facility] MPV 10.7 9.3 - 12.8 fL 05/10/2019 3:[address] [facility] nRBC Absolute 0.00 0 10? 3 /uL 05/10/2019 3:[address] [facility] nRBC Auto 0.0 0 /100 WBC 05/10/2019 3:[address] [facility] Neutrophils % 43.2 35.0 - 70.0 % 05/10/2019 3:[address] [facility] Lymphocytes % 46.5 19.7 - 55.1 % 05/10/2019 3:[address] [facility] Monocytes % 7.3 3.0 - 15.0 % 05/10/2019 3:[address] [facility] Eosinophils % 2.5 0.0 - 6.0 % 05/10/2019 3:[address] [facility] Basophil % 0.3 0.0 - 1.5 % 05/10/2019 3:[address] [facility] Neutrophils Absolute 2.6 1.6 - 7.0 10? 3 /uL 05/10/2019 3:[address] [facility] Lymphocyte Absolute 2.8 0.8 - 2.9 10? 3 /uL 05/10/2019 3:[address] [facility] Monocytes Absolute 0.44 0.14 - 0.66 10? 3 /uL 05/10/2019 3:[address] [facility] Eosinophils Absolute 0.15 0.00 - 0.45 10? 3 /uL 05/10/2019 3:[address] [facility] Basophils Absolute 0.02 0.00 - 0.06 10? 3 /uL 05/10/2019 3:[address] [facility] Immature Granulocytes % 0.2 0.0 - 1.0 % 05/10/2019 3:[address] [facility] Blood BLOOD SPECIMEN / Unknown Lab Venipuncture / Unknown 05/10/2019 3:10 AM [employer] 05/10/2019 3:22 AM [facility] Nacho Sauer MD LAB - HEMATOLOGY ORD ERABLES [facility] [address] [phone] * BASIC METABOLIC PANEL (CALCIUM TOTAL) (05/10/2019 3:10 AM [employer]) BUN 13 7 - 26 mg/dL 05/10/2019 3:[address] [facility] Creatinine 0.9 0.6 - 1.2 mg/dL 05/10/2019 3:[address] [facility] Sodium 140 136 - 145 mmol/L 05/10/2019 3:[address] [facility] Potassium 4.2 3.5 - 4.5 mmol/L 05/10/2019 3:[address] [facility] Chloride 104 98 - 107 mmol/L 05/10/2019 3:[address] [facility] CO2 24 22 - 29 mmol/L 05/10/2019 3:[address] [facility] Glucose 81 70 - 115 mg/dL 05/10/2019 3:[address] [facility] Calcium 9.4 8.4 - 10.2 mg/dL 05/10/2019 3:[address] [facility] Anion Gap 16 8 - 18 05/10/2019 3:[address] [facility] BUN/Creatinine Ratio 14 7 - 23 05/10/2019 3:[address] [facility] Osmolality Calculated 289 270 - 300 mOsm/kg 05/10/2019 3:[address] [facility] eGFR >60 >60 mL/min/1.7 3 m2 05/10/2019 3:[address] [facility] Blood BLOOD SPECIMEN / Unknown Lab Venipuncture / Unknown 05/10/2019 3:10 AM [employer] 05/10/2019 3:23 AM [employer] Nacho Sauer MD LAB - CHEMISTRY LUCIByron ABRAMSSHILPA Diana Organization Address City/State/ZIP Co de Phone Number [facility] [address] [place] [address] * XR CHEST 1VW PORTABLE (05/09/2019 11:35 PM [employer]) Anatomical Region Laterality Modality Chest Radiographic Cynthia ging 05/10/2019 7:37 AM [employer] Impressions 05/10/2019 7:44 AM [employer] FINDINGS/IMPRESSION: Left hemidiaphragm is elevated. There is no focal consolidation, pleural effusion, or pneumothorax. The cardiomediastinal silhouette is normal. The visible bony thorax is intact. Report dictated by Dav Vick (technical operations vice president) I, Dr. JJ OH have personally reviewed and interpreted this examination/study. This report was electronically signed by JJ OH ??on 05/10/2019 7:44 AM . Narrative 05/10/2019 7:44 AM [employer] EXAMINATION: XR CHEST 1VW PORTABLE HISTORY: R56.9: Seizure COMPARISON: Comparison is made with a study from 10/13/2017. Procedure Note Jj Oh, DO - 05/10/2019 EXAMINATION: XR CHEST 1VW PORTABLE HISTORY: R56.9: Seizure COMPARISON: Comparison is made with a study from 10/13/2017. FINDINGS/IMPRESSION: Left hemidiaphragm is elevated. There is no focal consolidation, pleural effusion, or pneumothorax. The cardiomediastinal silhouette is normal.The visible bony thorax is intact. Report dictated by Dav Vick (technical operations vice president) Paddy, Dr. JJ OH have personally reviewed and interpreted this examination/study. This report was electronically signed by JJ OH on 05/10/2019 7:44 AM . Nacho Sauer MD DIAGNOSTIC IMAGING O RDERABLES documented in this encounter Visit Diagnoses Diagnosis Seizure (HCC)- Primary Other convulsions Seizure (HCC) Other convulsions SVT (supraventricular tachycardia) (HCC) Other specified cardiac dysrhythmias documented in this encounter Administered Medications Inactive Administered Medications - up to 3 most recent administrations Medication Order MAR Action Action Date Dose Rate Site 0.9% NaCl infusion at 75 mL/hr, Intravenous, CONTINUOUS, Starting on Tue05/09/19 at 2030, Until Tue05/14/19 at 0730 $ New Bag/Syringe 05/13/2019 3:38 PM [employer] 75 mL/hr $ New Bag/Syringe 05/12/2019 7:49 PM [employer] 75 mL/ hr $ New Bag/Syringe 05/11/2019 11:07 PM [employer] 75 mL /hr 0.9% NaCl injection 1-10 mL 1-10 mL, Intracatheter, PRN, Other, peripheral line flush, Starting on Tue05/09/19 at 1957, Until Tue05/16/19 at 1925, Flush peripheral IV catheter with 1-10 mL of normal saline before and after medications and prn to clear blood from the line or to verify patency. 0.9% NaCl injection 10 mL 10 mL, Intracatheter, INTRA-PROCEDURE MULTIPLE, Starting on Tue05/16/19 at 1410, Until Tue05/16/19 at 1809, For Echo Procedure - Per Protocol Agitate saline before administration. $ Given 05/16/2019 2:12 PM [employer] 10 mL $ Given 05/16/2019 2:10 PM [employer] 10 mL $ Given 05/16/2019 1:41 AM [employer] 10 mL 0.9% NaCl injection 3 mL 3 mL, Intracatheter, EVERY 8 HOURS, First dose on Tue05/09/19 at 2200, Until Discontinued, Flush peripheral IV catheter with 3 mL of normal saline every 8 hours. $ Given 05/16/2019 4:05 PM [employer] 3 mL $ Given 05/16/2019 5:30 AM [employer] 3 mL $ Given 05/15/2019 8:58 PM [employer] 3 mL 0.9% NaCl IV Bolus 500 mL, at 967.74 mL/hr, Administer over 31 Minutes, ONCE, 1 dose, On Marian 05/10/19 at 0930 $ New Bag/Syringe 05/10/2019 9:29 AM [employer] 500 mL 967.74 mL/hr 0.9% NaCl IV Bolus 500 mL, at 247.93 mL/hr, Administer over 121 Minutes, ONCE, 1 dose, On Tue05/15/19 at 1630, running $ New Bag/Syringe 05/15/2019 4:38 PM [employer] 500 mL 247.93 mL/hr amLODIPine (NORVASC) tablet 5 mg 5 mg, Oral, DAILY, First dose on Tue05/12/19 at 1045, Until Discontinued $ Given 05/16/2019 8:37 AM [employer] 5 mg $ Given 05/15/2019 9:38 AM [employer] 5 mg $ Given 05/14/2019 9:12 AM [employer] 5 mg aspirin chew tablet 81 mg 81 mg, Enteral Tube, DAILY, First dose (after last modification) on Tue05/11/19 at 0900, Until Discontinued $ Given 05/16/2019 8:36 AM [employer] 81 mg G Tube $ Given 05/15/2019 9:39 AM [employer] 81 mg NG Tube $ Given 05/14/2019 9:12 AM [employer] 81 mg NG Tube atorvastatin (LIPITOR) tablet 20 mg 20 mg, Enteral Tube, AT BEDTIME, First dose (after last modification) on Tue05/11/19 at 2100, Until Discontinued $ Given 05/15/2019 8:57 PM [employer] 20 mg NG Tube $ Given 05/14/2019 8:39 PM [employer] 20 mg NG Tube $ Given 05/13/2019 9:18 PM [employer] 20 mg NG Tube cefTRIAXone (ROCEPHIN) 2,000 mg in 0.9% NaCl 50 mL IVPB 2,000 mg (2 g), at 100 mL/hr, Intravenous, EVERY 24 HOURS, 3 doses, First dose (after last modification) on Tue05/11/19 at 1500, Last dose on Tue05/13/19 at 1500, Ceftriaxone can cause precipitation when administered with calcium-containing fluids, including LR. Flush lines with a compatible fluid, such as D5W or NS before and after ceftriaxone dose. Admin through separate lumens is acceptable. , Indication for anti-infective therapy: Documented infection, Site of anti-infective therapy: Urine/Genitourinary $ New Bag/Syringe 05/13/2019 3:39 PM [employer] 2,000 mg 100 mL/hr $ New Bag/Syringe 05/12/2019 3:18 PM [employer] 2,000 mg 100 mL /hr $ New Bag/Syringe 05/11/2019 4:00 PM [employer] 2,000 mg 100 mL /hr cyanocobalamin (VITAMIN B-12) tablet 1,000 mcg 1,000 mcg, Enteral Tube, DAILY, First dose (after last modification) on Tue05/11/19 at 0900, Until Discontinued $ Given 05/16/2019 8:36 AM [employer] 1,000 mcg G Tube $ Given 05/15/2019 9:38 AM [employer] 1,000 mcg NG Tube $ Given 05/14/2019 9:11 AM [employer] 1,000 mcg NG Tube dextrose 10% infusion at 60 mL/hr, Intravenous, PRN, Infuse Dextrose 10% at 60 ml/hr. for the duration of the tube feed hold., Starting on Tue05/10/19 at 1152, Until Tue05/16/19 at 1925, To reduce risk of hypoglycemia during continuous tube feed interruptions/hold. Infuse Dextrose 10% at 60 ml/hr. for the duration of the tube feed hold. dextrose IV 12.5-25 g 12.5-25 g (25-50 mL), Intravenous, PRN, Bedside Glucose less than 70 mg/dL -If NOT able to eat and/or NPO and with IV Access, Starting on Marian 05/10/19 at 1151, Until Tue05/16/19 at 1925, If NOT able to eat and/or NPO and with IV Access: For Bedside Glucose 50-69 mg/dL give 25 mls D50W IVP STAT For Bedside glucose 50 mg/dL or LESS verify with a second Bedside Glucose (from a different site) and give 50 mls D50W IVP STAT Re-check and Re-treat blood glucose EVERY 10-25 minutes until blood glucose GREATER than or equal to 80 mg/dl. NOTIFY PROVIDER OF HYPOGLYCEMIC EVENT. divalproex DR (DEPAKOTE) tablet 500 mg 500 mg, Oral, 2 TIMES DAILY, First dose on Tue05/09/19 at 2100, Until Discontinued, Do not crush, chew, or cut in half. $ Given 05/11/2019 8:20 AM [employer] [address] (DEPAKOTE) tablet 750 mg 750 mg, Oral, 2 TIMES DAILY, First dose (after last modification) on Tue05/11/19 at 2100, Until Discontinued, Do not crush, chew, or cut in half. $ Given 05/16/2019 8:36 AM [employer] 750 mg $ Given 05/15/2019 8:57 PM [employer] 750 mg $ Given 05/15/2019 9:39 AM [employer] 750 mg divalproex ER 24hr (DEPAKOTE ER) tablet 250 mg 250 mg, Oral, ONCE, 1 dose, On Tue05/11/19 at 0900, Do not crush, chew, or cut in half. $ Given 05/11/2019 9:40 AM [employer] 250 mg folic acid (FOLVITE) tablet 1 mg 1 mg, Enteral Tube, DAILY, First dose (after last modification) on Tue05/11/19 at 0900, Until Discontinued $ Given 05/16/2019 8:36 AM [employer] 1 mg G Tube $ Given 05/15/2019 9:39 AM [employer] 1 mg NG Tube $ Given 05/14/2019 9:12 AM [employer] 1 mg NG Tube fosphenytoin (CEREBYX) 1,150 mg PE in 0.9% NaCl 123 mL IVPB 1,150 mg PE (rounded from 1,152 mg PE = 20 mg PE/kg ? 57.6 kg), at 246 mL/hr, Intravenous, ONCE, 1 dose, On Tue05/11/19 at 0915, maximum administration rate 150mg PE/min due to risk of hypotension. Refrigerate $ New Bag/Syringe 05/11/2019 9:30 AM [employer] 1,150 mg PE 246 mL/hr gadobutrol (GADAVIST) injection Intravenous, CONTRAST ONCE, Starting on Tue05/11/19 at 0518, Until Tue05/13/19 at 0517 $ Given - Contrast 05/11/2019 5:18 AM [employer] 5 mL glucagon (GLUCAGEN) injection 1 mg 1 mg, Intramuscular, PRN, Bedside Glucose less than 70 mg/dL - If NOT able to eat and/or NPO and withOUT IV Access, Starting on Marian 05/10/19 at 1151, Until Tue05/16/19 at 1925, If NOT able to eat and/or NPO and NO IV Access: For Bedside glucose 50-69 mg/dL Give 1 mg IM or SQ For Bedside Glucose LESS than 50 mg/dl verify with a second bedside glucose [...] does not have swallowing difficulties, Starting on Tue05/10/19 at 1151, Until Tue05/16/19 at 1925, If able to eat and does not have swallowing difficulties: For Bedside Glucose 50 - 69 mg/dL Give 15 grams of oral carbohydrates - 1 glucose gel (see MAR) If patient refuses glucose gel, then offer: - 4 ounces of fruit juice OR - 4 ounces non-diet soda OR - 8 ounces of fat-free milk For Bedside Glucose LESS than 50 mg/dL verify with a second Bedside Glucose (from a different site) - If pt is symptomatic, do not delay treatment If the patient is exhibiting symptoms which are not consistent with the results obtained, confirm the glucose with a STAT laboratory test. Give [...] 80 mg/dl. NOTIFY PROVIDER OF HYPOGLYCEMIC EVENT. heparin injection 5,000 Units 5,000 Units, Subcutaneous, EVERY 8 HOURS, First dose on Tue05/09/19 at 2200, Until Discontinued $ Given 05/16/2019 4:04 PM [employer] 5,000 Units Abdominal Tissue $ Given 05/16/2019 5:30 AM [employer] 5,000 Units A bdominal Tissue $ Given 05/15/2019 8:57 PM [employer] 5,000 Units A bdominal Tissue insulin aspart (NovoLOG) pen 0-6 Units 0-6 Units, Subcutaneous, EVERY 4 HOURS, First dose on Tue05/11/19 at 2000, Until Discontinued, DO NOT HOLD CORRECTION BOLUS EVEN IF PATIENT IS NPO. BEDSIDE GLUCOSE MUST BE PERFORMED AND DOCUMENTED WITHIN 30-60 MINUTES OF CORRECTOIN INSULIN ADMINISTRATION. BG (mg/dL) LESS than 70= follow Hypoglycemic guidelines 150-200 = add 1 unit 201-250 = add 2 units 251-300 = add 3 units 301-350 = add 4 units NOTIFY PHYSICIAN FOR BLOOD GLUCOSE GREATER THAN 350. 351-400= add 5 units NOTIFY PHYSICIAN FOR BLOOD GLUCOSE GREATER THAN 350. GREATER than 400 = add 6 units NOTIFY PHYSICIAN FOR BLOOD GLUCOSE GREATER THAN 350. $ Given 05/16/2019 12:08 AM [employer] 1 Units Abdominal Tissue $ Given 05/12/2019 4:57 AM [employer] 2 Units Ab d Left Lower Quadrant lacosamide (VIMPAT) 100 mg in 0.9% NaCl 60 mL IVPB 100 mg, at 120 mL/hr, Intravenous, 2 TIMES DAILY, First dose (after last modification) on Tue05/10/19 at 2100, Until Discontinued, Stable 4 hours after mixing. Give within 4 hours of mixing. $ New Bag/Syringe 05/10/2019 9:20 PM [employer] 100 mg 120 mL/hr lacosamide (VIMPAT) 100 mg in 0.9% NaCl 60 mL IVPB 100 mg, at 120 mL/hr, Intravenous, ONCE, 1 dose, On Marian 05/10/19 at 2200, Stable 4 hours after mixing. Give within 4 hours of mixing. $ New Bag/Syringe 05/10/2019 10:39 PM [employer] 100 mg 120 mL/hr lacosamide (VIMPAT) 200 mg in 0.9% NaCl 70 mL IVPB 200 mg, at 140 mL/hr, Intravenous, NOW, 1 dose, On [facility] 05/10/19 at 0845, Stable 4 hours after mixing. Give within 4 hours of mixing. $ New Bag/Syringe 05/10/2019 9:49 AM [employer] 200 mg 140 mL/hr lacosamide (VIMPAT) 200 mg in 0.9% NaCl 70 mL IVPB 200 mg, at 140 mL/hr, Intravenous, 2 TIMES DAILY, First dose (after last modification) on Tue05/11/19 at 0900, Until Discontinued, Stable 4 hours after mixing. Give within 4 hours of mixing. $ New Bag/Syringe 05/13/2019 10:30 PM [employer] 200 mg 140 mL/hr $ New Bag/Syringe 05/13/2019 8:56 AM [employer] 200 mg 140 mL /hr $ New Bag/Syringe 05/12/2019 9:31 PM [employer] 200 mg 140 mL /hr lacosamide (VIMPAT) 50 mg in 0.9% NaCl 55 mL IVPB 50 mg, at 110 mL/hr, Intravenous, 2 TIMES DAILY, First dose on Tue05/09/19 at 2100, Until Discontinued, Stable 4 hours after mixing. Give within 4 hours of mixing. $ New Bag/Syringe 05/09/2019 9:24 PM [employer] 50 mg 110 mL/hr lacosamide (VIMPAT) 50 mg in 0.9% NaCl 55 mL IVPB 50 mg, at 110 mL/hr, Intravenous, 2 TIMES DAILY, First dose (after last reorder) on Marian 05/10/19 at 1230, Until Discontinued, Stable 4 hours after mixing. Give within 4 hours of mixing. $ New Bag/Syringe 05/10/2019 12:36 PM [employer] 50 mg 110 mL/hr lacosamide (VIMPAT) tablet 200 mg 200 mg, Enteral Tube, 2 TIMES DAILY, First dose on Tue05/14/19 at 0900, Until Discontinued $ Given 05/16/2019 8:36 AM [employer] 200 mg G Tube $ Given 05/15/2019 8:56 PM [employer] 200 mg NG Tube $ Given 05/15/2019 9:38 AM [employer] 200 mg NG Tube levETIRAcetam (KEPPRA) 1,000 mg in 100 mL IVPB ADS Med 1 dose, Starting on Marian 05/10/19 at 1403, Until [facility] 05/10/19 at 1421, Vashti King: cabinet override levETIRAcetam (KEPPRA) 1,000 mg in 100 mL IVPB 1,000 mg, at 400 mL/hr, Intravenous, ONCE, 1 dose, On [facility] 05/10/19 at 1400 $ New Bag/Syringe 05/10/2019 1:08 PM [employer] 1,000 mg 400 mL/hr levETIRAcetam (KEPPRA) 1,000 mg in 100 mL IVPB 1,000 mg, at 400 mL/hr, Intravenous, ONCE, 1 dose, On [facility] 05/10/19 at 1415 $ New Bag/Syringe 05/10/2019 2:04 PM [employer] 1,000 mg 400 mL/hr levETIRAcetam (KEPPRA) 1,000 mg in 100 mL IVPB 1,000 mg, at 400 mL/hr, Intravenous, ONCE, 1 dose, On [facility] 05/10/19 at 2100 $ New Bag/Syringe 05/10/2019 10:41 PM [employer] 1,000 mg 400 mL/hr levETIRAcetam (KEPPRA) 1,500 in 100 mL IVPB 1,500 mg, at 400 mL/hr, Intravenous, EVERY 12 HOURS, First dose on Tue05/09/19 at 2100, Until Discontinued $ New Bag/Syringe 05/09/2019 9:01 PM [employer] 1,500 mg 400 mL/hr levETIRAcetam (KEPPRA) 2,000 mg in 0.9% NaCl 270 mL IVPB 2,000 mg, at 540 mL/hr, Intravenous, NOW, 1 dose, On Tue05/10/19 at 0845 $ New Bag/Syringe 05/10/2019 9:29 AM [employer] 2,000 mg 540 mL/hr levETIRAcetam (KEPPRA) 2,000 mg in 0.9% NaCl 270 mL IVPB 2,000 mg, at 540 mL/hr, Intravenous, EVERY 12 HOURS, First dose on Tue05/11/19 at 0900, Until Discontinued $ New Bag/Syringe 05/13/2019 9:17 PM [employer] 2,000 mg 540 mL/hr $ New Bag/Syringe 05/13/2019 9:36 AM [employer] 2,000 mg 540 mL /hr $ New Bag/Syringe 05/12/2019 7:52 PM [employer] 2,000 mg 540 mL /hr levETIRAcetam (KEPPRA) tablet 2,000 mg 2,000 mg, Enteral Tube, 2 TIMES DAILY, First dose on Tue05/14/19 at 0900, Until Discontinued, Do not crush or chew because of TASTE only. $ Given 05/16/2019 8:37 AM [employer] 2,000 m g G Tube $ Given 05/15/2019 8:55 PM [employer] 2,000 mg NG Tube $ Given 05/15/2019 9:38 AM [employer] 2,000 mg NG Tube LORazepam (ATIVAN) injection 1 mg 1 mg, Intravenous, ONCE, 1 dose, On Tue05/11/19 at 0515 $ Given 05/11/2019 5:00 AM [employer] 1 mg LORazepam (ATIVAN) injection 2 mg 2 mg, Intravenous, ONCE, 1 dose, On Tue05/10/19 at 0445 $ Given 05/10/2019 4:40 AM [employer] 2 mg LORazepam (ATIVAN) injection 2 mg 2 mg, Intravenous, ONCE, 1 dose, On Tue05/10/19 at 0900 $ Given 05/10/2019 8:44 AM [employer] 2 mg LORazepam (ATIVAN) injection 2 mg 2 mg, Intravenous, ONCE, 1 dose, On Tue05/10/19 at 1415 $ Given 05/10/2019 2:03 PM [employer] 2 mg LORazepam (ATIVAN) injection 2 mg 2 mg, Intravenous, ONCE, 1 dose, On Tue05/10/19 at 2200 $ Given 05/11/2019 4:27 AM [employer] 2 mg LORazepam (ATIVAN) injection 2 mg 2 mg, Intravenous, ONCE, 1 dose, On Tue05/11/19 at 0915 $ Given 05/11/2019 9:35 AM [employer] 2 mg LORazepam (ATIVAN) injection ADS Med 1 dose, Starting on Tue05/10/19 at 0837, Until Tue05/10/19 at 0844, Vashti Ga: cabinet override magnesium sulfate 2 g in 50 mL bolus 2 g, at 25 mL/hr, Administer over 120 Minutes, Intravenous, ONCE, 1 dose, On Tue05/11/19 at 0745, Infuse at 1 gm/hr $ New Bag/Syringe 05/11/2019 9:44 AM [employer] 2 g 25 mL/hr magnesium sulfate 2 g in 50 mL bolus 2 g, at 25 mL/hr, Administer over 120 Minutes, Intravenous, ONCE, 1 dose, On Tue05/14/19 at 0745, Infuse at 1 gm/hr $ New Bag/Syringe 05/14/2019 12:28 PM [employer] 2 g 25 mL/hr methylPREDNISolone sod succ (SOLU-Medrol) 1,000 mg in 0.9% NaCl 50 mL IVPB bolus 1,000 mg, at 100 mL/hr, Intravenous, ONCE, 1 dose, On Tue05/10/19 at 1415 $ New Bag/Syringe 05/10/2019 2:55 PM [employer] 1,000 mg 100 mL/hr methylPREDNISolone sod succ (SOLU-Medrol) 1,000 mg in 0.9% NaCl 50 mL IVPB bolus 1,000 mg, at 100 mL/hr, Intravenous, ONCE, 1 dose, On Tue05/11/19 at 0930 $ New Bag/Syringe 05/11/2019 10:05 AM [employer] 1,000 mg 100 mL/hr nicotine (NICODERM CQ) patch 7 mg 7 mg, Administer over 24 Hours, DAILY, First dose on Tue05/13/19 at 1745, Until Discontinued, Remove old patch before applying new patch. This patch may contain metal and is not compatible with MRI. Notify radiology of patch location upon arrival to MRI. . WASTE DISPOSAL INSTRUCTIONS: P-Listed item. Special Disposal Required. . $ Applied 05/16/2019 8:36 AM [employer] 7 mg Left Arm $ Applied 05/15/2019 10:56 AM [employer] 7 mg R ight Arm $ Applied 05/14/2019 9:11 AM [employer] 7 mg Ri ght Arm perflutren Lipid Microsphere (DEFINITY) injection SUSP 0.5 mL 0.5 mL, Intravenous, INTRA-PROCEDURE MULTIPLE, 6 doses, Starting on Tue05/16/19 at 1410, Until Tue05/16/19 at 1925, For Echo Procedure - Per Protocol Give slowly Shake well before using. $ Given 05/16/2019 2:12 PM [employer] 0.5 mL polyethylene glycol 3350 (MIRALAX) packet 17 g 17 g, Oral, DAILY, First dose on Tue05/15/19 at 1100, Until Discontinued, Mix in 8 ounces of water, juice, soda, coffee or tea prior to administration $ Given 05/16/2019 9:20 AM [employer] 17 g $ Given 05/15/2019 10:56 AM [employer] 17 g senna-docusate (SENOKOT-S) tablet 1 tablet 1 tablet, Oral, DAILY, First dose on Tue05/15/19 at 1100, Until Discontinued $ Given 05/16/2019 8:36 AM [employer] 1 table t $ Given 05/15/2019 10:56 AM [employer] 1 tablet tamsulosin (FLOMAX) capsule 0.4 mg 0.4 mg, Oral, DAILY, First dose on Tue05/10/19 at 0900, Until Discontinued, At the same time every day after a meal. Do not crush, chew $ Given 05/16/2019 8:36 AM [employer] 0.4 mg $ Given 05/15/2019 9:38 AM [employer] 0.4 mg $ Given 05/14/2019 9:12 AM [employer] 0.4 mg thiamine (VITAMIN B-1) 500 mg in 0.9% NaCl 50 mL IVPB 500 mg, at 100 mL/hr, Intravenous, 3 TIMES DAILY, 9 doses, First dose on Tue05/12/19 at 1015, Last dose on Tue05/14/19 at 2100, Protect from light $ New Bag/Syringe 05/14/2019 8:49 PM [employer] 500 mg 100 mL/hr $ New Bag/Syringe 05/14/2019 3:18 PM [employer] 500 mg 100 mL /hr $ New Bag/Syringe 05/14/2019 9:22 AM [employer] 500 mg 100 mL /hr thiamine (VITAMIN B-1) tablet 100 mg 100 mg, Enteral Tube, DAILY, First dose (after last modification) on Tue05/11/19 at 0900, Until Discontinued $ Given 05/11/2019 8:53 AM [employer] 100 mg NG Tube valproate (DEPACON) 500 mg in 0.9% NaCl 55 mL IVPB 500 mg, at 110 mL/hr, Intravenous, 2 TIMES DAILY, First dose on Tue05/09/19 at 2100, Until Discontinued $ New Bag/Syringe 05/10/2019 10:02 PM [employer] 500 mg 110 mL/hr $ New Bag/Syringe 05/10/2019 8:43 AM [employer] 500 mg 110 mL /hr $ New Bag/Syringe 05/09/2019 11:25 PM [employer] 500 mg 110 m L/hr valproate (DEPACON) 750 mg in 0.9% NaCl 57.5 mL IVPB 750 mg, at 115 mL/hr, Intravenous, 2 TIMES DAILY, First dose (after last modification) on Tue05/11/19 at 2100, Until Discontinued $ New Bag/Syringe 05/13/2019 9:31 AM [employer] 750 mg 115 mL/hr $ New Bag/Syringe 05/12/2019 10:28 PM [employer] 750 mg 115 m L/hr $ New Bag/Syringe 05/12/2019 10:02 AM [employer] 750 mg 115 m L/hr documented in this encounter Active and Recently Administered Medications Times are shown in [employer]. Scheduled Medication Order 05/14/2019 05/15/2019 05/16/2019 0.9% NaCl injection 10 mL () 10 mL, Intracatheter, INTRA-PROCEDURE MULTIPLE, Starting on Tue05/16/19 at 1410, Until Tue05/16/19 at 1809, For Echo Procedure - Per Protocol Agitate saline before administration. 0141 ($ Given - Provider: Alison Mark RN)1410 ($ Given - Provider: Alison Mark RN)1412 ($ Given - Provider: Alison Mark RN) 0.9% NaCl injection 3 mL(Linked Group 1) 3 mL, Intracatheter, EVERY 8 HOURS, First dose on Tue05/09/19 at 2200, Until Discontinued, Flush peripheral IV catheter with 3 mL of normal saline every 8 hours. 0519 ($ Given - Provider: Indio Ochoa RN)1507 ($ Given - Provider: Ashlee Izquierdo RN)203 ($ Given - Provider: Rickie Haq, RN) 0632 ($ Given - Provider: Rickie Haq, RN)1549 ($ Given - Provider: Oksana Ellis RN)205 ($ Given - Provider: Leanne Yap, ALFRED) 0530 ($ Given - Provider: Leanne Yap, RN)1605 ($ Given - Provider: Saloni King, ALFRED) 0.9% NaCl IV Bolus (COMPLETED) 500 mL, at 247.93 mL/hr, Administer over 121 Minutes, ONCE, 1 dose, On Tue05/15/19 at 1630, running 1638 ($ New Bag/Syringe - Provider: Ashlee Izquierdo RN)1900 (Stopped - Provider: Leanne Yap RN) amLODIPine (NORVASC) tablet 5 mg 5 mg, Oral, DAILY, First dose on Tue05/12/19 at 1045, Until Discontinued 911 ($ Given - Provider: Ashlee Izquierdo RN) 09 ($ Given - Provider: Ashlee Izquierdo RN) 0837 ($ Given - Provider: Saloni King, ALFRED) aspirin chew tablet 81 mg 81 mg, Enteral Tube, DAILY, First dose (after last modification) on Tue05/11/19 at 0900, Until Discontinued 911 ($ Given - Provider: Ashlee Izquierdo RN) 0939 ($ Given - Provider: Ashlee Izquierdo RN) 0836 ($ Given - Provider: Saloni King RN) atorvastatin (LIPITOR) tablet 20 mg 20 mg, Enteral Tube, AT BEDTIME, First dose (after last modification) on Tue05/11/19 at 2100, Until Discontinued 2038 ($ Given - Provider: Rickie Haq RN) 2056 ($ Given - Provider: Leanne Yap RN) cyanocobalamin (VITAMIN B-12) tablet 1,000 mcg 1,000 mcg, Enteral Tube, DAILY, First dose (after last modification) on Tue05/11/19 at 0900, Until Discontinued 09 ($ Given - Provider: Ashlee Izquierdo RN) 0938 ($ Given - Provider: Ashlee Izquierdo RN) 0836 ($ Given - Provider: Saloni King, ALFRED) divalproex DR (DEPAKOTE) tablet 750 mg(Linked Group 2) 750 mg, Oral, 2 TIMES DAILY, First dose (after last modification) on Tue05/11/19 at 2100, Until Discontinued, Do not crush, chew, or cut in half. 0911 ($ Given - Provider: Ashlee Izquierdo RN)2037 ($ Given - Provider: Rickie Haq RN) 0939 ($ Given - Provider: Ashlee Izquierdo RN)2056 ($ Given - Provider: Leanne Yap RN) 0836 ($ Given - Provider: Saloni King RN) folic acid (FOLVITE) tablet 1 mg 1 mg, Enteral Tube, DAILY, First dose (after last modification) on Tue05/11/19 at 0900, Until Discontinued 09 ($ Given - Provider: Ashlee Izquierdo RN) 0939 ($ Given - Provider: Ashlee Izquierdo RN) 0836 ($ Given - Provider: Saloni King RN) heparin injection 5,000 Units 5,000 Units, Subcutaneous, EVERY 8 HOURS, First dose on Tue05/09/19 at 2200, Until Discontinued 05 ($ Given - Provider: Indio Ochoa RN)150 ($ Given - Provider: Ashlee Izquierdo RN)2038 ($ Given - Provider: Rickie Haq, ALFRED) 0632 (Not Administered - Provider: Rickie Haq RN - Reason: Refused-Patient - Comment: refused)1548 ($ Given - Provider: Oksana Ellis RN)2056 ($ Given - Provider: Leanne Yap RN) 0530 ($ Given - Provider: Leanne Yap RN)1604 ($ Given - Provider: Saloni King RN) insulin aspart (NovoLOG) pen 0-6 Units 0-6 Units, Subcutaneous, EVERY 4 HOURS, First dose on Tue05/11/19 at 2000, Until Discontinued, DO NOT HOLD CORRECTION BOLUS EVEN IF PATIENT IS NPO. BEDSIDE GLUCOSE MUST BE PERFORMED AND DOCUMENTED WITHIN 30-60 MINUTES OF CORRECTOIN INSULIN ADMINISTRATION. BG (mg/dL) LESS than 70= follow Hypoglycemic guidelines 150-200 = add 1 unit 201-250 = add 2 units 251-300 = add 3 units 301-350 = add 4 units NOTIFY PHYSICIAN FOR BLOOD GLUCOSE GREATER THAN 350. 351-400= add 5 units NOTIFY PHYSICIAN FOR BLOOD GLUCOSE GREATER THAN 350. GREATER than 400 = add 6 units NOTIFY PHYSICIAN FOR BLOOD GLUCOSE GREATER THAN 350. 0000 (Not Administered - Provider: Indio Ochoa RN - Reason: Per Administration Instructions - Comment: BG 110)0519 (Not Administered - Provider: Indio Ochoa RN - Reason: Per Administration Instructions)0910 (Not Administered - Provider: Ashlee Izquierdo RN - Reason: Per Administration Instructions)1324 (Not Administered - Provider: Ashlee Izquierdo RN - Reason: Per Administration Instructions)1700 (Not Administered - Provider: Ashlee Izquierdo RN - Reason: Per Administration Instructions)2103 (Not Administered - Provider: Rickie Haq RN - Reason: Per Administration Instructions - Comment: BG 94) 0104 (Not Administered - Provider: Rickie Haq RN - Reason: Per Administration Instructions - Comment: BG 87)0611 (Not Administered - Provider: Rickie Haq RN - Reason: Per Administration Instructions - Comment: BG 96)0829 (Not Administered - Provider: Ashlee Izquierdo RN - Reason: Per Administration Instructions)1315 (Not Administered - Provider: Ashlee Izquierdo RN - Reason: Per Administration Instructions)1634 (Not Administered - Provider: Ashlee Izquierdo RN - Reason: Per Administration Instructions)2201 (Not Administered - Provider: Leanne Yap RN - Reason: See Comments - Comment: BG 109) 0008 ($ Given - Provider: Leanne Yap RN)0451 (Not Administered - Provider: Leanne Yap RN - Reason: See Comments - Comment: BG 115)1231 (Not Administered - Provider: Saloni King RN - Reason: See Comments)1256 (Not Administered - Provider: Saloni King RN - Reason: Per Administration Instructions - Comment: 97)1658 (Not Administered - Provider: Saloni King RN - Reason: Per Administration Instructions - Comment: 92) lacosamide (VIMPAT) tablet 200 mg 200 mg, Enteral Tube, 2 TIMES DAILY, First dose on Tue05/14/19 at 0900, Until Discontinued 09 ($ Given - Provider: Ashlee Izquierdo RN)2038 ($ Given - Provider: Rickie Haq RN) 09 ($ Given - Provider: Ashlee Izquierdo RN)2055 ($ Given - Provider: Leanne Yap RN) 0836 ($ Given - Provider: Saloni King RN) levETIRAcetam (KEPPRA) tablet 2,000 mg 2,000 mg, Enteral Tube, 2 TIMES DAILY, First dose on Tue05/14/19 at 0900, Until Discontinued, Do not crush or chew because of TASTE only. 0912 ($ Given - Provider: Ashlee Izquierdo RN)2037 ($ Given - Provider: Rickie Haq RN) 09 ($ Given - Provider: Ashlee Izquierdo RN)2054 ($ Given - Provider: Leanne Yap RN) 0837 ($ Given - Provider: Saloni King RN) magnesium sulfate 2 g in 50 mL bolus (COMPLETED) 2 g, at 25 mL/hr, Administer over 120 Minutes, Intravenous, ONCE, 1 dose, On Tue05/14/19 at 0745, Infuse at 1 gm/hr 1228 ($ New Bag/Syringe - Provider: Ashlee Izquierdo RN)1503 (Stopped - Provider: Ashlee Izquierdo RN) nicotine (NICODERM CQ) patch 7 mg 7 mg, Administer over 24 Hours, DAILY, First dose on Tue05/13/19 at 1745, Until Discontinued, Remove old patch before applying new patch. This patch may contain metal and is not compatible with MRI. Notify radiology of patch location upon arrival to MRI. . WASTE DISPOSAL INSTRUCTIONS: P-Listed item. Special Disposal Required. . 0910 (Removed - Provider: Ashlee Izquierdo RN)0911 ($ Applied - Provider: Ashlee Izquierdo RN) 0939 (Removed - Provider: Ashlee Izquierdo RN)1056 ($ Applied - Provider: Ashlee Izquierdo RN) 0836 ($ Applied - Provider: Saloni King RN)0841 (Removed - Provider: Saloni King RN) perflutren Lipid Microsphere (DEFINITY) injection SUSP 0.5 mL 0.5 mL, Intravenous, INTRA-PROCEDURE MULTIPLE, 6 doses, Starting on Tue05/16/19 at 1410, Until Tue05/16/19 at 1925, For Echo Procedure - Per Protocol Give slowly Shake well before using. 1412 ($ Given - Provider: Alison Mark RN) polyethylene glycol 3350 (MIRALAX) packet 17 g 17 g, Oral, DAILY, First dose on Tue05/15/19 at 1100, Until Discontinued, Mix in 8 ounces of water, juice, soda, coffee or tea prior to administration 1056 ($ Given - Provider: Ashlee Izquierdo RN) 0920 ($ Given - Provider: Saloni King RN) senna-docusate (SENOKOT-S) tablet 1 tablet 1 tablet, Oral, DAILY, First dose on Tue05/15/19 at 1100, Until Discontinued 1056 ($ Given - Provider: Ashlee Izquierdo RN) 0836 ($ Given - Provider: Saloni King RN) tamsulosin (FLOMAX) capsule 0.4 mg 0.4 mg, Oral, DAILY, First dose on Tue05/10/19 at 0900, Until Discontinued, At the same time every day after a meal. Do not crush, chew 0912 ($ Given - Provider: Ashlee Izquierdo RN) 0938 ($ Given - Provider: Ashlee Izquierdo RN) 0836 ($ Given - Provider: Saloni King RN) thiamine (VITAMIN B-1) 500 mg in 0.9% NaCl 50 mL IVPB (COMPLETED) 500 mg, at 100 mL/hr, Intravenous, 3 TIMES DAILY, 9 doses, First dose on Tue05/12/19 at 1015, Last dose on Tue05/14/19 at 2100, Protect from light 0922 ($ New Bag/Syringe - Provider: Ashlee Izquierdo RN)1051 (Stopped - Provider: Ashlee Izquierdo RN)1518 ($ New Bag/Syringe - Provider: Ashlee Izquierdo RN)1700 (Stopped - Provider: Ashlee Izquierdo RN)204 ($ New Bag/Syringe - Provider: Rickie Haq RN)212 (Stopped - Provider: Rickie Haq RN) valproate (DEPACON) 750 mg in 0.9% NaCl 57.5 mL IVPB(Linked Group 2) 750 mg, at 115 mL/hr, Intravenous, 2 TIMES DAILY, First dose (after last modification) on Tue05/11/19 at 2100, Until Discontinued 0911 (See Alternative - Provider: Ashlee Izquierdo RN)2037 (See Alternative - Provider: Rickie Haq RN) 0939 (See Alternative - Provider: Ashlee Izquierdo RN)2056 (See Alternative - Provider: Leanne Yap RN) 0836 (See Alternative - Provider: Saloni King RN) PRN Medication Order 05/14/2019 05/15/2019 05/16/2019 0.9% NaCl injection 1-10 mL(Linked Group 1) 1-10 mL, Intracatheter, PRN, Other, peripheral line flush, Starting on Tue05/09/19 at 1957, Until Tue05/16/19 at 1925, Flush peripheral IV catheter with 1-10 mL of normal saline before and after medications and prn to clear blood from the line or to verify patency. clonazePAM (KlonoPIN) tablet 0.5 mg 0.5 mg, Oral, EVERY 8 HOURS PRN, Seizure Cluster, Starting on Tue05/09/19 at 2010, Until Tue05/16/19 at 1925 dextrose 10% infusion at 60 mL/hr, Intravenous, PRN, Infuse Dextrose 10% at 60 ml/hr. for the duration of the tube feed hold., Starting on Marian 05/10/19 at 1152, Until Tue05/16/19 at 1925, To reduce risk of hypoglycemia during continuous tube feed interruptions/hold. Infuse Dextrose 10% at 60 ml/hr. for the duration of the tube feed hold. dextrose IV 12.5-25 g 12.5-25 g (25-50 mL), Intravenous, PRN, Bedside Glucose less than 70 mg/dL -If NOT able to eat and/or NPO and with IV Access, Starting on Marian 05/10/19 at 1151, Until Tue05/16/19 at 1925, If NOT able to eat and/or NPO and with IV Access: For Bedside Glucose 50-69 mg/dL give 25 mls D50W IVP STAT For Bedside glucose 50 mg/dL or LESS verify with a second Bedside Glucose (from a different site) and give 50 mls D50W IVP STAT Re-check and Re-treat blood glucose EVERY 10-25 minutes until blood glucose GREATER than or equal to 80 mg/dl. NOTIFY PROVIDER OF HYPOGLYCEMIC EVENT. glucagon (GLUCAGEN) injection 1 mg 1 mg, Intramuscular, PRN, Bedside Glucose less than 70 mg/dL - If NOT able to eat and/or NPO and withOUT IV Access, Starting on Marian 05/10/19 at 1151, Until Tue05/16/19 at 1925, If NOT able to eat and/or NPO and NO IV Access: For Bedside glucose 50-69 mg/dL Give 1 mg IM or SQ For Bedside Glucose LESS than 50 mg/dl verify with a second bedside glucose [...] not have swallowing difficulties, Starting on Marian 05/10/19 at 1151, Until Tue05/16/19 at 1925, If able to eat and does not have swallowing difficulties: For Bedside Glucose 50 - 69 mg/dL Give 15 grams of oral carbohydrates - 1 glucose gel (see MAR) If patient refuses glucose gel, then offer: - 4 ounces of fruit juice OR - 4 ounces non-diet soda OR - 8 ounces of fat-free milk For Bedside Glucose LESS than 50 mg/dL verify with a second Bedside Glucose (from a different site) - If pt is symptomatic, do not delay treatment If the patient is exhibiting symptoms which are not consistent with the results obtained, confirm the glucose with a STAT laboratory test. Give [...] 80 mg/dl. NOTIFY PROVIDER OF HYPOGLYCEMIC EVENT. Linked Groups Order Group 1: SALINE LOCK, INSERT AND MAINTAIN (CANCELED) Routine, CONTINUOUS, Starting on Tue05/09/19 at 2000, Until Specified, New collection And 0.9% NaCl injection 3 mLJump to med 3 mL, Intracatheter, EVERY 8 HOURS, First dose on Tue05/09/19 at 2200, Until Discontinued, Flush peripheral IV catheter with 3 mL of normal saline every 8 hours. And 0.9% NaCl injection 1-10 mLJump to med 1-10 mL, Intracatheter, PRN, Other, peripheral line flush, Starting on Tue05/09/19 at 1957, Until Tue05/16/19 at 1925, Flush peripheral IV catheter with 1-10 mL of normal saline before and after medications and prn to clear blood from the line or to verify patency. Group 2: divalproex DR (DEPAKOTE) tablet 750 mgJump to med 750 mg, Oral, 2 TIMES DAILY, First dose (after last modification) on Tue05/11/19 at 2100, Until Discontinued, Do not crush, chew, or cut in half. Or valproate (DEPACON) 750 mg in 0.9% NaCl 57.5 mL IVPBJump to med 750 mg, at 115 mL/hr, Intravenous, 2 TIMES DAILY, First dose (after last modification) on Tue05/11/19 at 2100, Until Discontinued documented in this encounter Care Teams Brick Setter Relationship Specialty Start Date End Date Misael Maradiaga DO PCP - General 10/03/17 09/15/20 Elizabeth Sullivan, RN Electrical Machine Builder 10/14/17 documented as of this encounter
--- OUTSIDE RECORDS SUMMARY | 2024-06-08 05:43 | XMS_ITS | Encounter Summary ---
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) Procedures CT ANGIO ABDOMEN AORTA W RUNOFF Vinicius Maldonado MD [address] [place] [address] [facility] [address] [place] [id number] Referral ID Status Reason Start Date Expiration Date Visits Re quested Visits Authorized [id number] Closed 06/14/2019 07/29/2019 1 1 USAGE METER CLERK * Radiology Services (Routine) - Closed Specialty Diagnoses / Procedures Referred By Anabella dan Referred To Contact Vascular Lab Diagnoses 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) Procedures VAS ARTERIAL ANKLE ARM INDEX Vinicius Maldonado MD [address] [place] [address] [facility] [address] [place] [address] Referral ID Status Reason Start Date Expiration Date Visits Re quested Visits Authorized [id number] Closed 06/15/2019 12/12/2019 1 1 USAGE METER CLERK Reason for Visit * Reason Comments Consultation pvd Encounter Details Date Type Department Care Team (Late st Contact Info) Description 06/13/2019 9:45 AM GAS USAGE METER CLERK Office Visit [facility] Vascular Surgery [address] [place] [address] Anna Membreno MD [address] DIV [place] [address] 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) (Primary Dx) [...] Sign Reading Time Taken Comments Blood Pressure 139/92 06/13/2019 10:10 AM GAS USAGE METER CLERK Pulse 96 06/13/2019 10:10 AM GAS USAGE METER CLERK Temperature 36.1 ??C (97 ??F) 06/13/2019 10:10 AM GAS USAGE METER CLERK Respiratory Rate - - Oxygen Saturation 99% 06/13/2019 10:10 AM GAS USAGE METER CLERK Inhaled Oxygen Concentration - - Weight 70.3 kg (155 lb) 06/13/2019 10:10 AM GAS USAGE METER CLERK Height 180.3 cm (5' 11 ) 06/13/2019 10:10 AM GAS USAGE METER CLERK Body Mass Index 21.62 06/13/2019 10:10 AM GAS USAGE METER CLERK documented in this encounter Functional Status [...] this encounter Patient Instructions * Patient Instructions* Vinicius Maldonado MD - 06/13/2019 10:51 AM GAS USAGE METER CLERK Thank you for visiting us in Vascular Surgery Clinic. As discussed, we will obtain a CT scan to evaluate the blood flow and get blood pressure measurements of the legs. We will see afterwards for follow up. Continue local wound care for the left third toe, no soaking in water, keep dry and covered.It was a pleasure seeing you today, please call with questions or concerns. USAGE METER CLERK documented in this encounter Progress Notes * Vinicius Maldonado MD - 06/13/2019 10:28 AM CST Images from the original note were not included. Vascular Surgery History and Physical Name: Bi Tabor : 1960 Date of Service: 06/13/19 Chief Complaint: 59-year-old male with left third toe pain. HPI: Bi Tabor is a very pleasant 59-year-old male with a history of seizure disorder, HTN and a previous right occipital stroke who presents for evaluation of left third toe pain. Patient resides at [facility] home and his staff reported a discolored left third toe. He presented to his PCP who ordered an LUIZ which returned 0.42 on the left and 0.78 on the right. No toe pressures were obtained per report and he also had an MRI which we don't have records for. The patient does not ambulate at baseline, denies any claudication or ischemic rest pain. No wounds or tissue loss. Otherwise he is doing well, denies any fevers, chills, nausea, emesis, chest pain or shortness of breath. Past Medical History: Diagnosis Date ??? CVA (cerebral vascular accident) ??? HTN (hypertension) ??? Seizure No past surgical history on file. Denies No family history on file. no pad or cad Non contributory SHX no drug use, no alcohol now no smoking Social History Socioeconomic History ??? Marital status: [...] file Gets together: Not on file Attends muslim service: Not on file Active member of [...] , Disp: , Rfl: ??? clonazePAM (KLONOPIN) 0.5 MG tablet, Take 1 tablet as needed after a seizure to prevent clustering, every 8 hours as needed. (Patient taking differently: 2 times daily Take 1 tablet as needed after a seizure to prevent clustering, every 8 hours as needed.), Disp: 30 tablet, Rfl: 5 ??? Cyanocobalamin (B-12) 1000 MCG, Take 1 mg by mouth once daily, Disp: 30 capsule, Rfl: 11 ??? divalproex DR (DEPAKOTE) 250 MG tablet, Take 3 tablets by mouth 2 times daily for 30 days, Disp: 180 tablet, Rfl: 5 ??? folic acid (FOLVITE) 1 MG tablet, Take 1 tablet by mouth once daily, Disp: 30 tablet, Rfl: 11 ??? ibuprofen (MOTRIN) 600 MG tablet, , Disp: , Rfl: ??? lacosamide (VIMPAT) 200 MG tablet, Take 1 tablet by mouth 2 times daily for 30 days, Disp: 60 tablet, Rfl: 5 ??? levETIRAcetam (KEPPRA) 1000 MG tablet, Take 2 tablets by mouth 2 times daily for 30 days, Disp:120 tablet, Rfl: 5 ??? tamsulosin (FLOMAX) 0.4 MG capsule, , Disp: , Rfl: ??? thiamine (VITAMIN B-1) 100 MG tablet, Take 1 tablet by mouth once daily, Disp: 30 tablet, Rfl: 11 Review of Systems: Constitutional: Negative for fevers, chills Eyes: Negative Ears, nose, mouth, and throat: Negative Cardiovascular: Negative Pulmonary: Negative Gastrointestinal: Negative Genitourinary: Negative Skin: Negative Hematologic/lymphatic: Negative Musculoskeletal:See HPI Neurological: Negative Behavioral/Psych: Negative Endocrine: Negative The rest of the review of systems was negative. Physical Exam: Vitals: 06/13/19 1010 BP: 139/92 Pulse: 96 Temp: 97 ??F (36.1 ??C) SpO2: 99% Weight: 155 lb (70.3 kg) Height: 5' 11 (1.803 m) General Appearance: NAD, conversant HEENT: NCAT, MMM, EOMI. Cardiovascular: RRR no murmur Respiratory: No increased work of breathing on RA. cta Abdominal: Soft, non-distended, non-tender. Musculoskeletal: Moving all extremities. Palpable femoral pulses bilaterally. Palpable right DP, dopplerable right PT. Dopplerable left PT. Left third toe ischemic with no wound. Skin: Warm and well perfused Neuro: No focal deficits Psych: Normal affect gu nl no masses Labs: Recent Labs: Recent Labs Component Name 05/16/19 1151 WBC 5.5 HGB 13.3* HCT 40.6 Recent Labs Component Name 05/16/19 1151 NA 137 CL 99 CO2 32* BUN 16 CREATININE 0.8 GLU 88 Recent Labs Component Name 04/11/15 0622 PT 12.1 INR 0.9 Assessment/ Plan: Bi Tabor is a very pleasant 59-year-old male with a history of seizure disorder, HTN and a previous right occipital stroke who presents for evaluation of left third toe pain and discoloration. LUIZ reportedly 0.78 in the right and 0.42 on the left and on exam patient with dopplerable left PT with an ischemic left third toe with no wounds. Will obtain CTA with runoff to evaluate along with baseline LUIZ's. Will follow up in clinic after studies obtained. Continue with local wound care to left third toe, no soaking in water, keep dry. He and his family were agreeable with the plan and all of their questions were answered. Vinicius Maldonado MD Vascular Surgery Fellow [facility] Pager: [phone] June 13, 2019 10:28 AM I have verified the documentation of the resident including all history, exam, and medical decision-making details. I have personally performed a physical exam and have personally reviewed the data to support my medical decision-making as outlined in the resident???s note, and I arrive independently at the same conclusion. Have discussed with family need for cta to assess patent vessels. Plan to see after complete USAGE METER CLERK documented in this encounter Plan of Treatment Upcoming Encounters Date Type Department Care Team (Late st Contact Info) Description 12/05/2024 1:00 PM CDT Office Visit [facility] - Neurology [address] [place] [address], [place] [phone] Sean Raymundo, [address] [place] [address] [place] [phone] documented as of this encounter Results * VAS ARTERIAL ANKLE ARM INDEX (07/02/2019 3:16 PM GAS USAGE METER CLERK) Anatomical Region Laterality Modality Ankle / Foot, Upper Extremity In travascular Ultrasound 07/02/2019 2:39 AM GAS USAGE METER CLERK Narrative Procedure Note Shane Doyle MD - 07/02/2019 Vinicius Maldonado MD VASCULAR LAB ORDERAB LES * CT ANGIO ABDOMEN AORTA W RUNOFF (07/02/2019 3:15 PM GAS USAGE METER CLERK) Anatomical Region Laterality Modality Abdomen, Lower Extremity Compute d Tomography 07/02/2019 3:48 PM GAS USAGE METER CLERK Impressions 07/03/2019 3:43 PM GAS USAGE METER CLERK IMPRESSION: Significant atherosclerotic disease, as described above. Dictated by Marianna Langley MD (radiology equipment servicer). I, Dr. Ashwin READ M.D. have personally reviewed and interpreted this examination/study. This report was electronically signed by Ashwin READ M.D. ??on 07/03/2019 3:43 PM . Narrative 07/03/2019 3:43 PM GAS USAGE METER CLERK EXAMINATION: Computed tomography (CT) angiography of the [...] above. Dictated by Marianna Langley MD (radiology equipment servicer). I, Dr. Ashwin READ M.D. have personally reviewed and interpretedthis examination/study. This report was electronically signed by Ashwin READ M.D. on 07/03/2019 3:43 PM . 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
--- OUTSIDE RECORDS SUMMARY | 2024-06-08 05:43 | XMS_ITS | Encounter Summary ---
Author Organization [facility] Health Address [address] [place] [address] Care Team Providers Care Senior Power Plant Operator Name Role Phone Misael Maradiagajamel Primary Care Provider Elizabeth Sullivan RN Unavailable [phone] Encounter Details Date Type Department Care Team (Late st Contact Info) Description 01/04/2019 Orders Only [facility] [address] [place] [address] Evy Frost, RN Social History Tobacco Use Types Packs/Day [...] as of this encounter Progress Notes * Evy Frost, RN - 01/04/2019 10:34 AM CDT Pharmacy updated in system to [facility] per request. documented in this encounter Plan of Treatment Upcoming Encounters Date Type Department Care Team (Late st Contact Info) Description 12/05/2024 1:00 PM CDT Office Visit [facility] - Neurology [address] [place] [address], [place] [address] Sean Raymundo DO [address] [place] [phone] documented as of this encounter Visit Diagnoses Not on filedocumented in this encounter Care Teams Senior Power Plant Operator Relationship Specialty Start Date End Date Misael Maradiaga DO PCP - General 10/03/17 09/15/20 Elizabeth Sullivan, RN Park Services Specialist 10/14/17 documented as of this encounter
--- OUTSIDE RECORDS SUMMARY | 2024-06-08 05:43 | XMS_ITS | Encounter Summary ---
Author Organization [facility] Health Address [address] [place] [address] Care Team Providers Care Community Affairs Manager Name Role Phone Misael Maradiaga DO Primary Care Provider Elizabeth Sullivan RN Unavailable [phone] Reason for Visit * Reason Comments Seizure Pt BIBEMS from home for seizure. Pt states he woke up from his sleep shaking. Pt states it lasted maybe 20 minutes or so . Per EMS, seziure was 45 minutes ago and unwitnessed. Pt denies bitting tongue or incontinence. Pt is AOX4, following commands, processing appropriately. Encounter Details Date Type Department Care Team (Late st Contact Info) Description 01/24/2019 11:16 PM CDT - 01/25/2019 2:02 AM T Emergency [facility] [address] [place] [id number] Walt Linder MD [address] [place] [id number] Atypical seizure (HCC) Discharge Disposition: Home or Self Care [...] Sign Reading Time Taken Comments Blood Pressure 130/72 01/25/2019 12:36 AM CDT Pulse 101 01/24/2019 11:17 PM CDT Temperature 37.2 ??C (98.9 ??F) 01/24/2019 11:17 PM C DT Respiratory Rate 16 01/24/2019 11:17 PM CDT Oxygen Saturation 100% 01/25/2019 12:37 AM CDT Inhaled Oxygen Concentration - - Weight 61.2 kg (135 lb) 01/24/2019 11:17 PM CDT Height 180.3 cm (5' 11 ) 01/24/2019 11:17 PM CDT Body Mass Index 18.83 01/24/2019 11:17 PM CDT documented in this encounter Functional [...] this encounter Discharge Instructions * Discharge Instructions* Elmo Hendricks MD - 01/25/2019 1:14 AM CDT Here are your medication changes from your appointment with Dr. Santacruz in Neurology: We will transition you off of the Keppra (levetiracetam) because this might be causing side effects. The new medication is called Briviact. It is about the same as Keppra but does not have the psychiatric side effects. Day 1 - Take two Keppra (levetiracetam) in the morning and one at night, and one Briviact 75 mg at night. Day 2,3,4,5 - Take two Keppra (levetiracetam) in the morning, one-half of the Keppra in the evening, and one Briviact at night. Day 6,7,8,9,10 - Take one Keppra in the morning, and two Briviact at night Day 11,12,13, 14 - Take one-half Keppra in the morning, one Briviact in the morning, and two Briviact at night Day 15 and beyond - Quit taking Keppra, take two Briviact in the morning and two at night. Do not change your Divalproex (Depakote). Continue to take 1 tablet 2 times daily * Attachments The following attachments cannot be sent through Care Everywhere. * RECURRENT SEIZURES IN ADULTS (AFTERCARE(R) INSTRUCTIONS(ER/ED)) (KOREAN) documented in this encounter Medications at Time [...] (KLONOPIN) 0.5 MG tablet Take 1 tablet by mouth 2 times daily for 3 days 6 tablet 01/24/2019 01/27/2019 clonazePAM (KLONOPIN) 0.5 MG tablet Take 1 [...] encounter Progress Notes * Gracia Hess - 01/25/2019 2:02 AM CDT SW arranged transportation for patient through his [facility] [phone] Insurance. SW spoke with policy services representative who had to speak to her supervisor assembly stock to get the ride assist approved forthe mileage. SW shared that patient was d/c early this morning to no transportation available and was asked to call back this morning. As of now, policy services representative has shared that they are waiting for the drivers to respond and she will call back with description and ETA. SW will inform on-coming Sales Representative Jewelry of this information. CLARITA Finch Emergency Department Sales Representative Jewelry documented in this encounter ED Notes * Cory Butt RN - 01/25/2019 2:01 AM CDT Pt provided discharge instructions and follow up care. Pt verbalized understanding. A&Ox4. VSS.Pt in wheelchair to waitingroom. * Walt Linder MD - 01/24/2019 11:53 PM CDT ED Resident Attestation I have personally seen, examined and been fully involved in the management of this patient with theresident. I confirm history, exam, assessment and plan Discussed with the resident. In addition I note: History: Bi Tabor is a 58 year old male with a hsitory of strok and seizures who presents tot ED for an episode of shaking. Patient states that he was woken up this evening by shaking, and that he was able to push his life alert button and call an ambulance while shaking. Patient was seenat neuro clinic today and some of his medicaitons were changed. He is now back at baseline. Patienthas had similar symptoms in the past. Symptoms are worse with nothing, better with nothing. Patienthas no other complaints. Past Medical History: Diagnosis Date ??? CVA (cerebral vascular accident) ??? HTN (hypertension) ??? Seizure Social History Socioeconomic History ??? Marital status: [...] file Gets together: Not on file Attends hinduism service: Not on file Active member of [...] History Narrative ??? Not on file No past surgical history on file. Review of Systems: Review of Systems Constitutional: Negative. HENT: Negative. Eyes: Negative. Respiratory: Negative. Cardiovascular: Negative. Gastrointestinal: Negative. Endocrine: Negative. Genitourinary: Negative. Musculoskeletal: Negative. Skin: Negative. Neurological: Positive for seizures and headaches. Hematological: Negative. Psychiatric/Behavioral: Negative. All other systems reviewed and are negative. Exam: Vitals: 01/24/19 2317 01/25/19 0036 01/25/19 0037 BP: 136/84 130/72 Pulse: 101 Resp: 16 Temp: 98.9 ??F (37.2 ??C) SpO2: 99% 100% Weight: 61.2 kg (135 lb) Height: 1.803 m (5' 11 ) The patient's Oxygen Saturation Monitor was interpreted by me. The reading was 99%. The patient wason room air at the time of the reading. This is interpreted as normal Physical Exam Constitutional: He is oriented to person, place, and time. He appears well- developed and well-nourished. No distress. HENT: Head: Normocephalic and atraumatic. Right Ear: External ear normal. Left Ear: External ear normal. Nose: Nose normal. Mouth/Throat: Oropharynx is clear and moist. No oropharyngeal exudate. Eyes: Pupils are equal, round, and reactive to light. Conjunctivae are normal. Right eye exhibits no discharge. Left eye exhibits no discharge. No scleral icterus. Neck: Neck supple. No tracheal deviation present. Cardiovascular: Normal rate, regular rhythm, normal heart sounds and intact distal pulses. Pulmonary/Chest: Effort normal and breath sounds normal. No stridor. No respiratory distress. He has no wheezes. He has no rales. He exhibits no tenderness. Abdominal: Soft. Bowel sounds are normal. He exhibits no distension and no mass. There is no tenderness. There is no rebound and no guarding. Musculoskeletal: He exhibits no edema or tenderness. Neurological: He is oriented to person, place, and time. He exhibits normal muscle tone. Coordination normal. Skin: Skin is warm. He is not diaphoretic. Psychiatric: He has a normal mood and affect. His behavior is normal. Judgment and thought content normal. Nursing note and vitals reviewed. Labs Reviewed - No data to display No orders to display Medications acetaminophen (TYLENOL) tablet 500 mg (500 mg Oral $ Given 01/25/19 0022) Assessment/Plan: 58 year old man with shaking episode - seizure vs pseudoseizure vs non- compliance vs provoked seizure vs other 1. Work Up - See lab and radiology orders 2. Therapy - See orders 3. 11:53 PM - Patient evaluated - patient with acute shaking episode this evening that he describesbeing conscious throughout. This does not sound like a seizure but patient is having changes to medications so may have been seizure due to med changes. Will plan to clarify meds, consult neurology, dispo pending their recs. 1:10 AM - patient does not wish to have a neurology consult, he says that he can take his medications and will be going to a SNF to live in a few days. He feels fine and is at baseline. Medications clarified. Will dc home. Procedure done at this time No Ultrasound done at this time No Clinical Impression: 1. Atypical seizure Disposition: Discharged Please see resident note for further details. * Elmo Hendricks MD - 01/24/2019 11:43 PM CDT ED Events Date/Time Event User Comments 01/24/19 5088 First Provider Evaluation WALT LINDER Bi Kandi Jr Tabor [id number] [facility] History Chief Complaint Patient presents with ??? Seizure Pt BIBEMS from home for seizure. Pt states he woke up from his sleep shaking. Pt states it lasted maybe 20 minutes or so . Per EMS, seziure was 45 minutes ago and unwitnessed. Pt denies bitting tongue or incontinence. Pt is AOX4, following commands, processing appropriately. History Patient presents with: Seizure: Pt BIBEMS from home for seizure. Pt states he woke up from his sleep shaking. Pt states it lasted maybe 20 minutes or so . Per EMS, seziure was 45 minutes ago and unwitnessed. Pt denies bitting tongue or incontinence. Pt is AOX4, following commands, processing appropriately. HPI History obtained from: Patient, chart. Pt is a poor historian Electro Winning Operator used: Lana Bi Kandi Jr Tabor is a 58 year old male with hx notable for prior stroke and recurrent seizure like activity who presents to the ED with an unwitnessed seizure. He states that he was awoken from sleep due to seizure that lasted 20 minutes. He was able to press his life alert necklace to call EMS. He was seen at [facility] ED on 01/22 and 01/24 (22 hours prior to current presentation). He also had a neurology appt today with Dr. Santacruz. Several of his medications were changed and he has not been able topick up new prescriptions yet. He has conflicting information about dosing changes from several different D/C summaries and AVS paperwork. Pt will be going to a SNF in [place], [place] in 2-3 days for help managing his medication. Symptom onset: upon awakening this morning. Provocation/palliation: better with time, worse with nothing. Quality n/a. Radiation n/a. Severity n/a/10. 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 Patient denies fevers, sweats, chills, SOB, CP, nausea,vomitting, diarrhea, urniary symptoms. Past Medical History: Diagnosis Date ??? CVA [...] file Gets together: Not on file Attends hinduism service: Not on file Active member of [...] file Review of Systems Review of Systems All other systems reviewed and are negative. Physical Exam BP 130/72 Pulse 101 Temp 98.9 ??F (37.2 ??C) (Oral) Resp 16 Ht 1.803 m (5' 11 ) Wt 61.2 kg (135 lb) SpO2 100% BMI 18.83 kg/m?? Physical Exam Constitutional: He is oriented to person, place, and time. He appears well- developed and well-nourished. HENT: Head: Normocephalic and atraumatic. Eyes: EOM are normal. Neck: Normal range of motion. Cardiovascular: Normal rate and regular rhythm. Pulmonary/Chest: Effort normal and breath sounds normal. Abdominal: Soft. There is no tenderness. Musculoskeletal: Normal range of motion. Neurological: He is alert and oriented to person, place, and time. Skin: Skin is warm and dry. Medications Current Outpatient Medications Medication Sig Dispense Refill ??? acetaminophen (TYLENOL) 325 MG tablet ??? amLODIPine (NORVASC) 5 MG tablet Take 1 tablet by mouth once daily 30 tablet 0 ??? aspirin (ASPIRIN) 81 MG chew tablet Take 1 tablet by mouth once daily 30 tablet 0 ??? atorvastatin (LIPITOR) 20 MG tablet ??? clonazePAM (KLONOPIN) 0.5 MG tablet Take 1 tablet by mouth 2 times daily for 3 days 6 tablet 0 ??? clonazePAM (KLONOPIN) 0.5 MG tablet Take [...] 30 tablet 11 Procedures Procedures Lab/SPO2 Interpretation No results found for this visit on 01/24/19. No orders to display Progress Notes ED Course Clinical Impressions as of Jan 26 224 Atypical seizure Medical Decision Making MDM Problem List: seizure like activity DDx: atypical seizure vs epilepsy vs anxiety vs other Plan: Labs not indicated as pt was seen at [facility] 20 hours prior, treating pt pain ED Course -Patient seen and evaluated, available studies reviewed, patient reassessed and feeling better -Prior records reviewed: nursing notes, vital signs wnl -Consults obtained: none -Pt counseled on benefits of coming into the hospital for medication management/optimization and help with transition into SNF -Pt st he is feeling much better and would like to go home -I have reviewed the diagnostic findings with the patient and they have had an opportunity to ask me any questions they have about care, diagnosis and discharge plan. The patient is comfortable with the discharge plan. Theywill follow up as directed and will return to the ER if their condition worsens or ifthey develop other urgent concerns. ED Clinical Impression and Discharge information Disposition Discharge home after conversation on risk/benefits and shared decision making Elmo Hendricks MD 01/25/2019 2:24 AM Orders Placed This Encounter ??? acetaminophen (TYLENOL) tablet 500 mg Follow-up Information Follow-up With Details Why Contact Info Misael Maradiaga DO Schedule an appointment as soon as possible for a visit in 1 week If symptoms worsen [address] [facility] [id number] User Date/Time Elmo Hendricks MD [facility] Jan 25, 2019 1:10 AM * Zulma Quijano MD - 01/24/2019 11:16 PM CDT Bed: 03 Expected date: Expected time: Means of arrival: Comments: jazzy documented in this encounter Plan of Treatment Upcoming Encounters Date Type Department Care Team (Late st Contact Info) Description 12/05/2024 1:00 PM CDT Office Visit [facility] - Neurology [address] [facility], [place] [phone] Sean Raymundo DO [address] [place] [phone] documented as of this encounter Visit Diagnoses Diagnosis Atypical seizure (HCC) Other convulsions Nonintractable epilepsy without status epilepticus, unspecified epilepsy type (HCC) documented in this encounter Administered Medications Inactive Administered Medications - up to 3 most recent administrations Medication Order MAR Action Action Date Dose Rate Site acetaminophen (TYLENOL) tablet 500 mg 500 mg, Oral, NOW, 1 dose, On Marian 01/25/19 at 0030 $ Given 01/25/2019 12:22 AM CDT 500 mg documented in this encounter Active and Recently Administered Medications Times are shown in CDT. Scheduled Medication Order 01/23/2019 01/24/2019 01/25/2019 acetaminophen (TYLENOL) tablet 500 mg (COMPLETED) 500 mg, Oral, NOW, 1 dose, On Marian 01/25/19 at 0030 0022 ($ Given - Prov ider: Verenice Quiroz RN) documented in this encounter Care Teams Community Affairs Manager Relationship Specialty Start Date End Date Misael Maradiaga DO PCP - General 10/03/17 09/15/20 Elizabeth Sullivan, ALFRED Pearler 10/14/17 documented as of this encounter
--- OUTSIDE RECORDS SUMMARY | 2024-06-08 05:43 | XMS_ITS | Encounter Summary ---
Author Organization [facility] Health Address [address] [place] [address] Care Team Providers Care Ball Truing Machine Operator Name Role Phone Misael Maradiaga DO Primary Care Provider Elizabeth Sullivan RN Unavailable [phone] Reason for Visit * Reason Comments Seizure Pt BIBEMS for a seiz ure. pt states he has had a seizure this morning and tuesday night. Pt states tuesday night he he went to an OSH and was cleared. Pt stated that tonight he was in bed and it woke him up. Pt stated he did not hit his head. or fall. Pt states he is getting his meds becasue his siblings are ging his meds to make sure he gets the right amoutn. Encounter Details Date Type Department Care Team (Late st Contact Info) Description 01/24/2019 1:51 AM CDT - 01/24/2019 5:38 AM CDT Emergency [facility] EMERGENCY DEPARTMENT [address] [place] [address] [place] [id number] [facility] [id number] Seizure (HCC) Discharge Disposition: Home or Self [...] Sign Reading Time Taken Comments Blood Pressure 132/86 01/24/2019 5:00 AM CDT Pulse 98 01/24/2019 1:20 AM CDT Temperature 36.2 ??C (97.1 ??F) 01/24/2019 1:20 AM CD T Respiratory Rate 16 01/24/2019 1:20 AM CDT Oxygen Saturation 100% 01/24/2019 4:37 AM CDT Inhaled Oxygen Concentration - - Weight 65.8 kg (145 lb) 01/24/2019 1:20 AM CDT Height 180.3 cm (5' 11 ) 01/24/2019 1:20 AM CDT Body Mass Index 20.22 01/24/2019 1:20 AM CDT documented in this encounter Functional [...] this encounter Discharge Instructions * Discharge Instructions* Sean Martinez MD - 01/24/2019 4:52 AM CDT TAKE KLONOPIN 0.5 MG TWICE A DAY FOR 3 DAYS STARTING THIS MORNING. FOLLOW UP WITH SCHEDULED APPOINTMENT WITH DR. FELICIANO IN January. RETURN TO ER IF YOU HAVE ANOTHER SEIZURE. * Attachments The following attachments cannot be sent through Care Everywhere. * RECURRENT SEIZURES IN ADULTS (GENERAL INFORMATION) (ESTONIAN) documented in this encounter Medications at Time [...] as of this encounter Progress Notes * Pao Gruber MSW - 01/24/2019 5:38 AM CDT Referral was received 01/24/19 from RN for assistance with discharge transportation. Consult with RNindicates that patient is medically stable to travel by cab. Screening was completed with pt. Patient appears to meet the eligibility criteria for discharge transportation assistance as his insurance transportation is not currently running at this time. Social Work/Assembling Fabricator confirmed (1) discharge address with pt, (2) the patient has immediate access to the home/facility, and (3) the patient has appropriate clothing for discharge. Patient was given a cab voucher. No other social work/case management intervention appears needed at this time. Pao Gruber HEAVY EQUIPMENT RENTAL ASSOCIATE Emergency Department Model [employer] [phone] documented in this encounter H&P Notes * Raymond Blake MD - 01/24/2019 4:11 AM CDT GENERAL NEUROLOGY H&P NOTE HPI: 58 YO M w PMH of stroke(R occipital in 2014),seizures(Neurologist ) who presents for a suspected sz this night. He woke up suddenly from sleep with a headache, generalized shaking and sweating. This is similar to his post ictal phase and so he hit his med alert button and came to ER. Was back to baseline on arrival(baseline, ambulates w a cane due to LLE weakness and L visual field cut since his prior stroke). Prior to today he had a sz on 01/22 and came to ER and was discharged w/o any changes. He is currently on Keppra 2g BID, Depakote DR 500mg BID. He also has klonopin script for sz clusters which he has not taken recently. SIster administers all his meds and he endorses compliance. Doesn't drink/use drugs. Is on disability and doesn't work/drive. Lives alone at home and is moving to a SNF in 2 days. His typical sz freq was 2 sz / month bnut this month he has had increase in frequency. He was discharged from our service this month on 01/15 when he presnted w sz, was hyponatremic down to 120s at that time and was on aptiom 400mg BID, Keppra 2g BID and Depakote 500mg BID(had sponteously stopped taking this) . His aptiom was stopped and he was recommended to contine keppra 2g BID and resume his Depakote DR 500mg BID and follow w in clinic as scheduled (02/15/1019). 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 Today his CBC, CMP is normal. He is afebrile. VPA level 88, LEV level in process but last level on 01/14/2019 therapeutic at 30. ?? SEMIOLOGY - Aura Tingling sensation over the right side - Ictus 1. Dyscongitive events 2. Convulsions, tongue bites - Post-ictus Confusion ?? SEIZURE CONTROL Seizure frequency 1. 1 event every 2 weeks 2. 1 event every 1 month Seizure free interval Uncontrolled ?? MEDICATION Name Dosage Frequency AED Level Start Levetiractam 1000 mg 2 - [address] 500 mg 1 - 1 88 ?? COMPLIANCE good, given by sister ?? TREATMENT HISTORY Name Allergy/Side Effects/Ineffectiveness Phenytoin ?? EE07/2015 Normal awake and drowsy EEG [...] temporal??focal slowing, suggestive of underlinestructure/functional abnormalities. ?? IMAGING: MRI brain 2015 Focal area of encephalomalacia in the right occipital lobe 1. There is no evidence of acute ischemic insults. ?? 2. . Right occipital cortical/subcortical T2/FLAIR hyperintensity with no restricted diffusion, corresponding to the area of low attenuation seen on the recent CT dated 04/11/15, likely representing subacute right occipital lobe small volume Infarct. ?? 3. Scattered bilateral basal ganglia, subcortical and deep periventricular white matter, and pontine foci of abnormal T2/FLAIR hyperintensity without diffusion restriction, most pronounced at both thalami, likely combination of chronic lacunar infarct with chronic small vessel ischemic disease. There is severe atrophy of the brainstem, which is morepronounced than atrophy of the other regions of the cerebrum and cerebellum. PMH: Past Medical History: Diagnosis Date ??? CVA (cerebral vascular accident) ??? HTN (hypertension) ??? Seizure FH: No family history on file. ROS: General: no fever/chills, no malaise, no weight loss Head: no headache, no lightheadedness Eyes: no vision changes, no double or blurry vision Mouth: no dry mouth, no sore throat Respiratory: no cough, no hemoptysis, no shortness of breath, no dyspnea on exertion Cardiovascular: no chest pain, no palpitations, no arrhythmia GI: no abdominal pain, no nausea/vomiting, no changes in bowel habits, no blood in stool : no dysuria, no hematuria, no frequency Extremities: no joint pain, no muscle pain Neurological: no focal deficits, no new numbness/tingling, no tremor Skin: no rash NEURO EXAM: BP 142/92 Pulse 98 Temp 97.1 ??F (36.2 ??C) (Oral) Resp 16 Ht 5' 11 Wt 145 lb SpO2 100% BMI 20.22 kg/m2 Exam: General appearance: Neurological Exam:- Cortical Function: MS: Awake, Alert, Follows Commands Oriented to Person, Place , not time Language: Fluent, Coherent, Repetition Intact VF L inferior quadrantanopia Neglect No visual neglect, No tactile neglect Cranial Nerves: Pupils 4-->1 mm BRTL, Full EOM, No ptosis or nystagmus Facial sensation intact bilaterally to LT; No facial palsy Palate symmetric; Normal tongue protrusion Motor: Abnormal Movements: None Bulk: Normal Tone: Normal Strength: RUE 5/5 LUE 5/5 RLE 5/5 LLE 4/5 DTR: Bi Tri BR Pat Ach Toes R 3 2 2 3 2 Down L 3 2 2 3 2 Down Sensory: Intact to light touchx4 Co-ordination:- Finger nose finger Heel knee francisco tests symmetric bilaterally. ASSESSMENT AND PLAN:- Pt w increase in frequency of seizures (2 in the last 2 days) despite being compliant on medication. No trigger identified. Had sz on 01/14 but those were likely triggered by hyponatremia 2/2 Aptiom and him not taking his Depakote. Was offered admission for observation due to recent increase in sz. Is completely back to baseline now and is not interested in being admitted. Says that he is going toSNF in 2 days and has an appointment w today(stroke follow up) -Continue Keppra 2g BID -Continue Deplizeth REILLY 500mg BID -Take klonopin 0.5mg BIDX3 days as has had increase in sz frequency recently, atleast till SNF transfer to prevent further sz -F/U w as scheduled on 02/15/2019 The above was discussed w patient and ER. D/w Dr. Siddhartha Blake MD PGY3 Neurology [facility] Associated attestation - Baldev Carl MD - 01/24/2019 12:40 PM CDT Patient discussed over the phone with resident. Concur with the assessment and plan. The patient was given seizure precautions and instructed to return to the emergency room if neurological symptoms developed that required urgent attention. documented in this encounter ED Notes * Wood Parisi RN - 01/24/2019 5:21 AM CDT Pt instructed to follow up with PCP if needed, is discharged with all personal belongings. Pt alert/ oriented upon discharge. To speak with SW about transportation home * Sean Martinez MD - 01/24/2019 2:25 AM CDT [place] [id number] [facility] EMERGENCY DEPARTMENT History Chief Complaint Patient presents with ??? Seizure Pt BIBEMS for a seizure. pt states he has had a seizure this morning and tuesday night. Pt states tuesday night he he went to an OSH and was cleared. Pt stated that tonight he was in bed and it woke him up. Pt stated he did not hit his head. or fall. Pt states he is getting his meds becasue his siblings are ging his meds to make sure he gets the right amoutn. HPI 58yo male with pmhx of cva, seizure, htn presents with seizure. Pt states he felt an aura and knew that he was going to have a seizure. He then woke up and states he felt that he had had a seizure. Pt was discharged from [facility] 9 days ago for seizure. At this time he had not been taking his depakote. His keppra was increased to 2 g bid and depakote was added back on. His trileptal and eslicarbazepine was discontinued. Since then he has been seen at [facility] ED and [facility] ed for recurrent seizures, last visit here 2 days ago. He lives alone but states that his family brings him his medications daily and has been compliant. Denies any fever, cp, sob abd pain, nausea, vomiting, dysuria, OROPEZA. Denies drug or alcohol use. He has a follow up appointment with neurology later today. Past Medical History: Diagnosis Date ??? CVA [...] file Gets together: Not on file Attends restoration service: Not on file Active member of [...] Systems Review of Systems Constitutional: Negative for chills and fever. HENT: Negative for congestion and sore throat. Respiratory: Negative for cough, hemoptysis, sputum production, shortness of breath and wheezing. Cardiovascular: Negative for chest pain, palpitations and leg swelling. Gastrointestinal: Negative for abdominal pain, blood in stool, constipation, diarrhea, nausea and vomiting. Genitourinary: Negative for dysuria and flank pain. Skin: Negative for rash. Neurological: Positive for seizures. Negative for dizziness, focal weakness and headaches. Physical Exam BP 132/86 Pulse 98 Temp 97.1 ??F (36.2 ??C) (Oral) Resp 16 Ht 1.803 m (5' 11 ) Wt 65.8 kg(145 lb) SpO2 100% BMI 20.22 kg/m?? Physical Exam Constitutional: He is oriented to person, place, and time. He appears well- developed and well-nourished. No distress. HENT: Head: Normocephalic and atraumatic. Mouth/Throat: Oropharynx is clear and moist. Eyes: Pupils are equal, round, and reactive to light. Conjunctivae and EOM are normal. Neck: Normal range of motion. Neck supple. No JVD present. No tracheal deviation present. Cardiovascular: Normal rate, regular rhythm, normal heart sounds and intact distal pulses. Pulmonary/Chest: Effort normal and breath sounds normal. No stridor. No respiratory distress. He has no wheezes. He has no rales. Abdominal: Soft. He exhibits no distension. There is no tenderness. Musculoskeletal: Normal range of motion. He exhibits no edema, tenderness or deformity. Neurological: He is alert and oriented to person, place, and time. Skin: Skin is warm and dry. He is not diaphoretic. Psychiatric: He has a normal mood and affect. His behavior is normal. Nursing note and vitals reviewed. Medications [...] Procedures Procedures Lab/SPO2 Interpretation Hospital Encounter on 01/24/19 CBC W AUTO DIFFERENTIAL Result Value Ref Range WBC 5.4 3.5 - 10.5 10??3/uL RBC 4.14 (L) 4.30 - 5.70 10??6/uL Hemoglobin 13.9 13.5 - 17.5 g/dL Hematocrit 40.2 39.0 - 50.0 % MCV 97.1 (H) 81.0 - 97.0 fL MCH 33.6 28.0 - 34.0 pg MCHC 34.6 32.0 - 36.0 g/dL Platelet Count 208 150 - 400 10??3/uL RDW-SD 42.6 36.0 - 50.0 fL RDW-CV 11.9 11.2 - 14.8 % MPV 9.6 9.3 - 12.8 fL nRBC Absolute 0.00 0 10??3/uL nRBC Auto 0.0 0 /100 WBC Neutrophils % 42.0 35.0 - 70.0 % Lymphocytes % 47.0 19.7 - 55.1 % Monocytes % 6.5 3.0 - 15.0 % Eosinophils % 3.5 0.0 - 6.0 % Basophil % 0.6 0.0 - 1.5 % Neutrophils Absolute 2.3 1.6 - 7.0 10??3/uL Lymphocyte Absolute 2.5 0.8 - 2.9 10??3/uL Monocytes Absolute 0.35 0.14 - 0.66 10??3/uL Eosinophils Absolute 0.19 0.00 - 0.45 10??3/uL Basophils Absolute 0.03 0.00 - 0.06 10??3/uL Immature Granulocytes % 0.4 0.0 - 1.0 % COMPREHENSIVE METABOLIC PANEL Result Value Ref Range BUN 12 7 - 26 mg/dL Creatinine 0.8 0.6 - 1.2 mg/dL Sodium 143 136 - 145 mmol/L Potassium 3.9 3.5 - 4.5 mmol/L Chloride 109 (H) 98 - 107 mmol/L CO2 23 22 - 29 mmol/L Glucose 101 70 - 115 mg/dL Calcium 9.7 8.4 - 10.2 mg/dL Protein Total 6.9 6.0 - 8.3 g/dL Albumin 4.0 3.4 - 5.0 g/dL Bilirubin Total 0.3 0.2 - 1.2 mg/dL Alkaline Phosphatase 80 40 - 150 Units/L ALT 10 0 - 55 Units/L AST 13 5 - 34 Units/L Anion Gap 15 8 - 18 BUN/Creatinine Ratio 15 7 - 23 Osmolality Calculated 296 270 - 300 mOsm/kg Albumin/Globulin Ratio 1.4 1.1 - 2.3 eGFR >60 >60 mL/min/1.73 m2 PHENYTOIN LEVEL TOTAL Result Value Ref Range Total Phenytoin <0.5 (L) 10.0 - 20.0 mcg/mL ALCOHOL ETHYL BLOOD Result Value Ref Range Interpretation Ethanol None Detected None Detected mg/dL VALPROIC ACID LEVEL Result Value Ref Range Valproic Acid Total 88 50 - 100 mcg/mL CK BLOOD Result Value Ref Range CK Total 127 30 - 200 Units/L No orders to display Progress Notes ED Course Problems: seizure Ddx: noncompliance vs metabolic vs drug use vs etoh vs uti Plan: labs -Patient seen and evaluated, available studies reviewed. Prior available records reviewed -VS WNL - pt with recent changes to medication. Has had recurren tseizures since then. Per pt, he has been compliant with prescribed meds. Will consult neurology for further recs -labs unremarkable, depakote level therapeutic, keppra level pending -per neurology, rx klonopin 0.5 mg bid x3 days and have pt follow up with scheduled appointment with Dr. Feliciano in January -. Patient appears well and is stable. ED evaluation is negative for an acutely dangerous pathology. Will discharge with treatment recommendations. I have given the patient instructions regarding their diagnosis, expectations, follow up, and return precautions. I explained to the patient that emergentconditions may arise that are not yet detectable on exam or testing, and to return to the ER for new, worsening, or any persistent conditions. I've explained the importance of following up with the listed physician (see DC instructions) as instructed. The patient has had an opportunity to ask me any questions they have about care, diagnosis and discharge plan. The patient verbalized understandingof the discharge instructions and has no further questions at discharge. Clinical Impressions as of Jan 24 559 Seizure Medical Decision Making Orders Placed This Encounter ??? CBC W AUTO DIFFERENTIAL ??? COMPREHENSIVE METABOLIC PANEL ??? PHENYTOIN LEVEL TOTAL ??? LEVETIRACETAM LEVEL ??? URINALYSIS W/MICROSCOPIC NO CULTURE ??? DRUG SCREEN TOX URINE PANEL ??? ALCOHOL ETHYL BLOOD ??? VALPROIC ACID LEVEL ??? CK BLOOD ??? PROLACTIN ??? IP CONSULT TO NEUROLOGY ??? clonazePAM (KLONOPIN) 0.5 MG tablet Follow-up Information Follow-up With Details Why Contact Info Ck Feliciano MD Go in 1 month scheduled appointment [address] [place] [id number] [facility] EMERGENCY DEPARTMENT if you have another seizure, As needed [address] [place] [id number] User Date/Time Sean Martinez MD Wed Jan 24, 2019 4:48 AM * Trista Layne RN - 01/24/2019 1:20 AM CDT Pt BIBEMS for a seizure. pt states he has had a seizure this morning and tuesday night. Pt states tuesday night he he went to an OSH and was cleared. Pt stated that tonight he was in bed and it woke him up. Pt stated he did not hit his head. or fall. Pt states he is getting his meds becasue his siblings are ging his meds to make sure he gets the right amoutn. documented in this encounter Plan of Treatment Upcoming Encounters Date Type Department Care Team (Late st Contact Info) Description 12/05/2024 1:00 PM CDT Office Visit [facility] - Neurology [address] [place] [address], [facility] Level [address] Sean Raymundo, DO [address] [place] [address] OF NEUROLOGY [id number] documented as of this encounter Procedures Procedure Name Priority Date/Time Associated Diagnosis Comments LEVETIRACETAM LEVEL STAT 01/24/2019 2 :45 AM CDT PROLACTIN STAT 01/24/2019 2:45 AM CDT CBC W AUTO DIFFERENTIAL STAT 01/24/2019 1:54 AM CDT COMPREHENSIVE METABOLIC PANEL STAT 01/24/2019 1:54 AM CDT PHENYTOIN LEVEL TOTAL STAT 01/24/2019 1:54 AM CDT CK BLOOD STAT 01/24/2019 1:54 AM CDT ALCOHOL ETHYL BLOOD STAT 01/24/2019 1 :54 AM CDT VALPROIC ACID LEVEL STAT 01/24/2019 1 :54 AM CDT documented in this encounter Results * PROLACTIN (01/24/2019 2:45 AM CDT) Prolactin 5.7 2.1 - 17.7 ng/mL 2019 3:41 AM CDT [facility] [employer] ([facility]) Comment: REFERENCE INTERVAL: Prolactin Access complete set of age- and/or gender-specific reference intervals for this test in the [facility] Test Directory ([employer]). Performed by [facility], [address] [place] [address] [email or web address], Mio Anderson MD, Lab. Director Blood BLOOD SPECIMEN / Unknown 01/24/2019 2:45 AM CDT 01/24/2019 3:03 AM CDT Sean Martinez MD LAB - CHEMISTRY [facility]SHAL [facility]ER[facility] Performing Organization Address City/[facility]/ZIP Co de Phone Number [facility] [employer] ([facility]) [address] * (ABNORMAL) LEVETIRACETAM LEVEL (01/24/2019 2:45 AM CDT) Pathologist [facility] Levetiracetam 41.5(H) 10.0 - 40.0 ug/mL 2019 9:09 AM CDT [facility] ([facility]) Comment: This test was developed and its performance characteristics determined by [facility]. It has not been cleared or approved by the Food and Drug Administration. Blood BLOOD SPECIMEN / Unknown 01/24/2019 2:45 AM CDT 01/24/2019 3:03 AM CDT Narrative [facility] ([facility]) - 2019 9:09 AM CDT Performed at: ??01 - [facility] ??[id number] Title Insurance Sales Representative: Terence Ramos MD, Phone: ??[phone] Sean Martinez MD LAB - THERAPEUTIC DR DIAZ MONITORING ORDERABLES [facility] ([facility]) [address] [place] [address] * CK BLOOD (01/24/2019 1:54 AM CDT) CK Total 127 30 - 200 Units/L 01/24/2019 3:18 AM CDT [facility] Blood BLOOD SPECIMEN / Unknown 01/24/2019 1:54 AM CDT 01/24/2019 3:06 AM CDT Sean Martinez MD LAB - CHEMISTRY [facility]SH[facility]EROS Performing Organization Address [facility] Co de Phone Number [address] [phone] * VALPROIC ACID LEVEL (01/24/2019 1:54 AM CDT) Pathologist [facility] Valproic Acid Total 88 50 - 100 mcg/mL 01/24/2019 3:24 AM CDT [facility] Blood BLOOD SPECIMEN / Unknown 01/24/2019 1:54 AM CDT 01/24/2019 3:06 AM CDT Sean Martinez MD LAB - CHEMISTRY [facility] Performing Organization Address [facility] Co de Phone Number [address] [phone] * ALCOHOL ETHYL BLOOD (01/24/2019 1:54 AM CDT) Pathologist [facility] Interpretation Ethanol None Detected None Detected mg/dL 01/24/2019 3:18 AM CDT [facility] Comment: Ethanol levels less than 10 mg/dL are resulted as None detected . Blood BLOOD SPECIMEN / Unknown 01/24/2019 1:54 AM CDT 01/24/2019 3:06 AM CDT Sean Martinez MD LAB - CHEMISTRY [facility] Performing Organization Address [facility] Co de Phone Number [address] [phone] * (ABNORMAL) PHENYTOIN LEVEL TOTAL (01/24/2019 1:54 AM CDT) [facility] Phenytoin, total <0.5(L) 10.0 - 20.0 mcg/mL 01/24/2019 2:29 AM [facility] Blood BLOOD SPECIMEN / Unknown Venipuncture / Unknown 01/24/2019 1:54 AM CDT 01/24/2019 2:01 AM CDT Nima Yee MD LAB - CHEMISTRY [facility] Organization Address City/State/ZIP Co de Phone Number [facility] [address] [phone] * (ABNORMAL) COMPREHENSIVE METABOLIC PANEL (01/24/2019 1:54 AM CDT) BUN 12 7 - 26 mg/dL 01/24/2019 2:17 AM [facility] Creatinine 0.8 0.6 - 1.2 mg/dL 01/24/2019 2:17 AM [facility] Sodium 143 136 - 145 mmol/L 01/24/2019 2:17 AM [facility] Potassium 3.9 3.5 - 4.5 mmol/L 01/24/2019 2:17 AM [facility] Chloride 109(H) 98 - 107 mmol/L 01/24/2019 2:17 AM [facility] CO2 23 22 - 29 mmol/L 01/24/2019 2:17 AM [facility] Glucose 101 70 - 115 mg/dL 01/24/2019 2:17 AM [facility] Calcium 9.7 8.4 - 10.2 mg/dL 01/24/2019 2:17 AM [facility] Protein Total 6.9 6.0 - 8.3 g/dL 01/24/2019 2:17 AM [facility] Albumin 4.0 3.4 - 5.0 g/dL 01/24/2019 2:17 AM [facility] Bilirubin Total 0.3 0.2 - 1.2 mg/dL 01/24/2019 2:17 AM [facility] Alkaline Phosphatase 80 40 - 150 Units/L 01/24/2019 2:17 AM [facility] ALT 10 0 - 55 Units/L 01/24/2019 2:17 AM [facility] AST 13 5 - 34 Units/L 01/24/2019 2:17 AM [facility] Anion Gap 15 8 - 18 01/24/2019 2:17 AM [facility] BUN/Creatinine Ratio 15 7 - 23 01/24/2019 2:17 AM [facility] Osmolality Calculated 296 270 - 300 mOsm/kg 01/24/2019 2:17 AM [facility] Albumin/Globulin Ratio 1.4 1.1 - 2.3 01/24/2019 2:17 AM [facility] eGFR >60 >60 mL/min/1.7 3 m2 01/24/2019 2:17 AM [facility] Blood BLOOD SPECIMEN / Unknown Venipuncture / Unknown 01/24/2019 1:54 AM CDT 01/24/2019 2:01 AM CDT Nima Yee MD LAB - CHEMISTRY ORDE [facility] Organization Address City/State/[facility] Co de Phone Number [facility] [address] [phone] * (ABNORMAL) CBC W AUTO DIFFERENTIAL (01/24/2019 1:54 AM CDT) WBC 5.4 3.5 - 10.5 10? 3 /uL 01/24/2019 2:03 AM [facility] RBC 4.14(L) 4.30 - 5.70 10? 6 /uL 01/24/2019 2:03 AM [facility] Hemoglobin 13.9 13.5 - 17.5 g/dL 01/24/2019 2:03 AM [facility] Hematocrit 40.2 39.0 - 50.0 % 01/24/2019 2:03 AM [facility] MCV 97.1(H) 81.0 - 97.0 fL 01/24/2019 2:03 AM [facility] MCH 33.6 28.0 - 34.0 pg 01/24/2019 2:03 AM [facility] MCHC 34.6 32.0 - 36.0 g/dL 01/24/2019 2:03 AM [facility] Platelet Count 208 150 - 400 10? 3 /uL 01/24/2019 2:03 AM [facility] RDW-SD 42.6 36.0 - 50.0 fL 01/24/2019 2:03 AM [facility] RDW-CV 11.9 11.2 - 14.8 % 01/24/2019 2:03 AM [facility] MPV 9.6 9.3 - 12.8 fL 01/24/2019 2:03 AM [facility] nRBC Absolute 0.00 0 10? 3 /uL 01/24/2019 2:03 AM [facility] nRBC Auto 0.0 0 /100 WBC 01/24/2019 2:03 AM [facility] Neutrophils % 42.0 35.0 - 70.0 % 01/24/2019 2:03 AM [facility] Lymphocytes % 47.0 19.7 - 55.1 % 01/24/2019 2:03 AM [facility] Monocytes % 6.5 3.0 - 15.0 % 01/24/2019 2:03 AM [facility] Eosinophils % 3.5 0.0 - 6.0 % 01/24/2019 2:03 AM [facility] Basophil % 0.6 0.0 - 1.5 % 01/24/2019 2:03 AM [facility] Neutrophils Absolute 2.3 1.6 - 7.0 10? 3 /uL 01/24/2019 2:03 AM [facility] Lymphocyte Absolute 2.5 0.8 - 2.9 10? 3 /uL 01/24/2019 2:03 AM [facility] Monocytes Absolute 0.35 0.14 - 0.66 10? 3 /uL 01/24/2019 2:03 AM [facility] Eosinophils Absolute 0.19 0.00 - 0.45 10? 3 /uL 01/24/2019 2:03 AM [facility] Basophils Absolute 0.03 0.00 - 0.06 10? 3 /uL 01/24/2019 2:03 AM [facility] Immature Granulocytes % 0.4 0.0 - 1.0 % 01/24/2019 2:03 AM [facility] Blood BLOOD SPECIMEN / Unknown Venipuncture / Unknown 01/24/2019 1:54 AM CDT 01/24/2019 2:01 AM CDT Nima Yee MD LAB - HEMATOLOGY ORD [facility] Organization Address City/State/ZIP Co de Phone Number [address] [phone] documented in this encounter Visit Diagnoses Diagnosis Seizure (HCC) Other convulsions documented in this encounter Care Teams Ball Truing Machine Operator Relationship Specialty Start Date End Date Misael Maradiaga DO PCP - General 10/03/17 09/15/20 Elizabeth Sullivan, RN Assembling Fabricator 10/14/17 documented as of this encounter
--- OUTSIDE RECORDS SUMMARY | 2024-06-08 05:43 | XMS_ITS | Encounter Summary ---
Author Organization [facility] Health Address [address] [place] [address] Care Team Providers Care [place]. Representative Name Role Phone Misael Maradiaga DO Primary Care Provider Elizabeth Sullivan RN Unavailable [phone] Reason for Visit * Reason Comments Seizure Encounter Details Date Type Department Care Team (Late st Contact Info) Description 11/27/2018 11:10 PM CDT - 11/28/2018 1:13 AM CDT Emergency [facility] EMERGENCY DEPARTMENT [address] [place] [id number] Eliane Tai MD [address] [facility] [place] [address] Seizure (HCC) Discharge Disposition: Home or Self [...] Reading Time Taken Comments Blood Pressure 128/77 11/28/2018 1:02 AM CDT Pulse 88 11/28/2018 1:02 AM CDT Temperature 37.3 ??C (99.2 ??F) 11/27/2018 10:58 PM C DT Respiratory Rate 18 11/28/2018 1:02 AM CDT Oxygen Saturation 98% 11/28/2018 1:02 AM CDT Inhaled Oxygen Concentration - - Weight 68 kg (150 lb) 11/27/2018 10:58 PM CDT Height 180.3 cm (5' 11 ) 11/27/2018 10:58 PM CDT Body Mass Index 20.92 11/27/2018 10:58 PM CDT documented in this encounter Functional [...] 10/15/2017 documented as of this encounter Discharge Instructions * Discharge Instructions* Eliane Tai MD - 11/28/2018 12:37 AM CDT Images from the original note were not included. Recurrent Seizures in Adults WHAT YOU NEED TO KNOW: A seizure is an episode of abnormal brain activity. A seizure can cause jerky muscle movements, loss of consciousness, or confusion. Recurrent means you have a seizure more than once. The cause of your seizures may not be known. Recurrent seizures may occur if you do not take antiseizure medicine as directed. Some common triggers are alcohol, drugs, lack of sleep, fever, or a virus. High or low blood sugar levels can also trigger a seizure. DISCHARGE INSTRUCTIONS: Call your local emergency number (911 in the [place]) or have someone else call for any of the following: ?? Your seizure lasts longer than 5 minutes. ?? You have a second seizure within 24 hours of your first. ?? You have trouble breathing after a seizure. ?? You cannot be woken after your seizure. ?? You have more than 1 seizure before you are fully awake or aware. ?? You have diabetes or are and have a seizure. ?? You have a seizure in water. Call your doctor if: ?? You are injured during a seizure. ?? You have a fever. ?? You are planning to get or are currently . ?? You have questions or concerns about your condition or care. Medicine: ?? Antiepileptic medicine may be given to control or prevent seizures. Do not stop taking this medicine without the direction of a healthcare provider. ?? Take your medicine as directed. Contact your healthcare provider if you think your medicine is not helping or if you have side effects. Tell him of her if you are allergic to any medicine. Keep a list of the medicines, vitamins, and herbs you take. Include the amounts, and when and why you take them. Bring the list or the pill bottles to follow-up visits. Carry your medicine list with you in case of an emergency. Prevent another seizure: ?? Take your antiseizure medicine every day at the same time. This will also help reduce side effects. Do not skip any doses. Do not stop taking this medicine unless directed by a healthcare provider. ?? Manage stress. Stress can trigger a seizure. Exercise can help you reduce stress. Talk to your healthcare provider about exercise that is safe for you. Other ways to manage stress include yoga, meditation, and biofeedback. Illness can be a form of stress. Eat a variety of healthy foods and drinkplenty of liquids during an illness. ?? Set a regular sleep schedule. A lack of sleep can trigger a seizure. Try to go to sleep and wakeup at the same times every day. Keep your bedroom quiet and dark. Talk to your healthcare provider if you are having trouble sleeping. ?? Manage other medical conditions. Manage other health conditions that may increase your risk for a seizure. Keep your blood sugar levels and blood pressure under control. ?? Limit or do not drink alcohol as directed. Alcohol can trigger a seizure, especially if you drink a large amount at one time. A drink of alcohol is 12 ounces of beer, 1?? ounces of liquor, or 5 ounces of wine. Talk to your healthcare provider about a safe amount of alcohol for you. Your providermay recommend that you do not drink any alcohol. Tell him or her if you need help to quit drinking. Manage recurrent seizures: ?? Ask what safety precautions you should take. Talk with your healthcare provider about driving. You may not be able to drive until you are seizure-free for a period of time. You will need to check the law where you live. Also talk to your healthcare provider about swimming and bathing. You may drown or develop life-threatening heart or lung damage if you have a seizure in water. ?? Tell your friends, family members, and coworkers that you had a seizure. Give them the followinginstructions to use if you have another seizure: ? Do not panic. ? Gently guide me to the floor or a soft surface. ? Do not hold me down or put anything in my mouth. ? Place me on my side to help prevent me from swallowing saliva or vomit. ? Protect me from injury. Remove sharp or hard objects from the area surrounding me, or cushion my head. ? Loosen the clothing around my head and neck. ? Time how long my seizure lasts. Call 911 if my seizure lasts longer than 5 minutes or if I have asecond seizure. ? Stay with me until my seizure ends. Let me rest until I am fully awake. ? Perform CPR if I stop breathing or you cannot feel my pulse. ? Do not give me anything to eat or drink until I am fully awake. Follow up with your doctor or neurologist as directed: You may need more tests to find the cause ofyour seizure. You may also need tests to check the level of antiseizure medicine in your blood. Your neurologist may need to change or adjust your medicine. Write down your questions so you remember to ask them during your visits. ?? Copyright [employer] 2019 Information is for End User's use only and may not be sold, redistributed or otherwise used for commercial purposes. All illustrations and images included in CareNotes?? are the copyrighted property of [employer] or [employer] The above information is an custodial aide only. It is not intended as medical advice for individual conditions or treatments. Talk to your doctor, nurse or pharmacist before following any medical regimen to see if it is safe and effective for you. documented in this encounter Medications at Time of Discharge Medication Sig Dispensed Refills Start Date End Date amLODIPine (NORVASC) 5 MG tabletIndications:Hyper tension, unspecified type Take 1 tablet by mouth once daily 30 tablet 06/10/2018 01/07/2022 aspirin (ASPIRIN) 81 MG chew tablet Take 1 tablet by mouth once daily 30 tablet 06/10/2018 01/07/2022 clonazePAM (KLONOPIN) 0.5 MG tablet Take 1 tablet as needed after a seizure to prevent clustering, every 8 hours as needed. 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 Consult with RN indicates that patient is medically stable to travel by cab. Screening was completed with pt. Patient appears to meet the eligibility criteria for discharge transportation assistance. Social Work/Electronic Transaction Implementer confirmed (1) discharge address with pt, (2) the patient has immediate access to the home/facility, and (3) the patient has appropriate clothing for discharge. Patient was given a cab voucher. No other social work/case management intervention appears needed at this time. Pao Gruber LMSW Emergency Department Advertisement Compositor [phone] documented in this encounter ED Notes * Shane Staley RN - 11/28/2018 1:03 AM CDT Transportation being setup by . * Shane Staley RN - 11/28/2018 1:02 AM CDT Patient is discharging home. Patient is stable. Discharge instructions reviewed. Follow up instructions reviewed. Medications reviewed. Patient verbalized understanding. * Eliane Tai MD - 11/28/2018 12:35 AM CDT ED Attending Note Interval History: Bi Tabor is a 58 year old male is presenting to the ED c/o Seizure - Has sz disorder. Takes Keppra. Reports being compliant. This seizure like all others. States thathe occasionally has breakthrough seizures. No OROPEZA, vision changes, neck pain, CP, SOB, n/v/d. Feels back to baseline now. States that he follows with his neurologist as he is scheduled. No recent changes in his medications. Past Medical History: Diagnosis Date ??? [...] file Social History Narrative Review of Systems: (+) positive All systems negative except as marked. Constitutional: Negative for fever HENT: Negative for sore throat. Eyes: Negative for visual changes Respiratory: Negative for SOB, cough Cardiovascular: Negative for chest pain, palpitations Gastrointestinal: Negative abdominal pain, nausea, vomiting, diarrhea Genitourinary: Negative for difficulty urinating, hematuria, dysuria Musculoskeletal: Negative for neck pain, back pain, myalgia Skin: Negative for rash, itching Neurological: Negative for OROPEZA, dizziness, weakness, numbness, tingling Psychiatric: Negative for SI, hallucinations, anxiety Vitals: 11/27/18 2258 BP: 133/82 Pulse: 106 Resp: 20 Temp: 99.2 ??F (37.3 ??C) SpO2: 100% Weight: 68 kg (150 lb) Height: 1.803 m (5' 11 ) Exam: Constitutional: well developed, well nourished, no acute distress HENT: normocephalic, atraumatic, moist oral mucosa, conjunctiva normal Eyes: PERRL, EOMi Neck: supple, normal ROM Cardiovascular: regular rate and rhythm, no murmur Respiratory: clear to auscultation bilaterally, no wheezes, no respiratory distress Abdomen: soft, non-tender, non-distended Musculoskeletal: no edema or deformities Skin: warm, dry, no lesions. No wounds Neurological: awake, alert&Ox4, moving all extremities, no focal motor/sensation deficits. Gaitsteady. No ataxia. No nystagmus. Clear speech. Psychiatric: mood and affect normal Medical Decision Makin. Seizure Assessment/Plan: Labs Results: Labs Reviewed CBC W AUTO DIFFERENTIAL - Abnormal; Notable for the following: Result Value RBC 4.19 (*) Hematocrit 38.1 (*) MCHC 36.2 (*) All other components within normal limits COMPREHENSIVE METABOLIC PANEL - Abnormal; Notable for the following: BUN 6 (*) Sodium 130 (*) Chloride 97 (*) Osmolality Calculated 268 (*) All other components within normal limits VALPROIC ACID LEVEL - Abnormal; Notable for the following: Valproic Acid Total 48 (*) All other components within normal limits LEVETIRACETAM LEVEL CT HEAD WO CONTRAST (Results Pending) ED course: The patient's Oxygen Saturation Monitor was interpreted by me. The reading was 100%. The patient was on RA at the time of the reading. This is interpreted as normal. - This seizure like all others. Reports being compliant. Now back to baseline with no complaints. Reports other people called 911, otherwise he would not have called - Labs with slightly low Na. Not a critical value. Can follow up with PCP - Discussed importance of medication compliance and follow up - Will DC home. Consult No Procedure done at this time No Ultrasound done at this time No CRITICAL CARE IN THE ED No Orders and Medicine administered during this encounter: Orders Placed This Encounter ??? CT HEAD WO CONTRAST ??? CBC W AUTO DIFFERENTIAL ??? COMPREHENSIVE METABOLIC PANEL ??? LEVETIRACETAM LEVEL ??? VALPROIC ACID LEVEL ??? AND Linked Order Group ??? 0.9% NaCl injection 3 mL ??? 0.9% NaCl injection 1-10 mL Medications 0.9% NaCl injection 3 mL ( Intracatheter Canceled Entry 11/27/18 0756) And 0.9% NaCl injection 1-10 mL (not administered) Clinical Impression: 1. Seizure Disposition: Discharge * Wood Parisi RN - 11/27/2018 10:58 PM CDT Pt to ED reporting seizure approx 1 hour ago, pt states he has hx of seizures and intermittently has breakthrough seizures. Pt a/o x4 at this time. Pt had seizure and fell and hit back of head. Pt reports x1 week ago he had low potassium. documented in this encounter Plan of Treatment Upcoming Encounters Date Type Department Care Team (Late st Contact Info) Description 12/05/2024 1:00 PM CDT Office Visit [facility] - Neurology [address] [place] [address], [place] [id number] Sean Raymundo DO [address] [place] [address] [place] [address] documented as of this encounter Procedures Procedure Name Priority Date/Time Associated Diagnosis Comments LEVETIRACETAM LEVEL STAT 11/27/2018 1 1:32 PM CDT CBC W AUTO DIFFERENTIAL STAT 11/27/2018 11:32 PM CDT COMPREHENSIVE METABOLIC PANEL STAT 11/27/2018 11:32 PM CDT VALPROIC ACID LEVEL STAT 11/27/2018 1 1:32 PM CDT documented in this encounter Results * (ABNORMAL) VALPROIC ACID LEVEL (11/27/2018 11:32 PM CDT) Valproic Acid Total 48(L) 50 - 100 mcg/mL 11/27/2018 11:58 PM CDT [facility] Blood BLOOD SPECIMEN / Unknown Venipuncture / Unknown 11/27/2018 11:32 PM CDT 11/27/2018 11:34 PM CDT Eliane Tai MD LAB - CHEMISTRY [facility]ER[facility] Organization Address City/State/ZIP Co de Phone Number [facility] [address] [place] [address] * (ABNORMAL) LEVETIRACETAM LEVEL (11/27/2018 11:32 PM CDT) Levetiracetam 88.8(H) 10.0 - 40.0 ug/mL 12/01/2018 7:05 PM CDT [facility] ([facility]) Comment: This test was developed and its performance characteristics determined by [facility]. It has not been cleared or approved by the Food and Drug Administration. Blood BLOOD SPECIMEN / Unknown Venipuncture / Unknown 11/27/2018 11:32 PM CDT 11/27/2018 11:34 PM CDT Narrative [facility] ([facility]) - 12/01/2018 7:05 PM CDT Performed at: ??01 - [facility] [address] ??[id number] Portable Power Tool Repairer: Terence Ramos MD, Phone: ??[phone] Eliane Tai MD LAB - THERAPEUTIC DR DIAZ MONITORING ORDERABLES [facility] ([facility]) [address] [place] [address] * (ABNORMAL) COMPREHENSIVE METABOLIC PANEL (11/27/2018 11:32 PM CDT) BUN 6(L) 7 - 26 mg/dL 11/27/2018 11:52 PM [facility] Creatinine 0.7 0.6 - 1.2 mg/dL 11/27/2018 11:52 PM [facility] Sodium 130(L) 136 - 145 mmol/L 11/27/2018 11:52 PM [facility] Potassium 4.1 3.5 - 4.5 mmol/L 11/27/2018 11:52 PM [facility] Chloride 97(L) 98 - 107 mmol/L 11/27/2018 11:52 PM [facility] CO2 22 22 - 29 mmol/L 11/27/2018 11:52 PM [facility] Glucose 99 70 - 115 mg/dL 11/27/2018 11:52 PM [facility] Calcium 8.9 8.4 - 10.2 mg/dL 11/27/2018 11:52 PM [facility] Protein Total 6.8 6.0 - 8.3 g/dL 11/27/2018 11:52 PM [facility] Albumin 4.1 3.4 - 5.0 g/dL 11/27/2018 11:52 PM [facility] Bilirubin Total 0.5 0.2 - 1.2 mg/dL 11/27/2018 11:52 PM [facility] Alkaline Phosphatase 65 40 - 150 Units/L 11/27/2018 11:52 PM [facility] ALT 13 0 - 55 Units/L 11/27/2018 11:52 PM [facility] AST 25 5 - 34 Units/L 11/27/2018 11:52 PM [facility] Anion Gap 15 8 - 18 11/27/2018 11:52 PM [facility] BUN/Creatinine Ratio 9 7 - 23 11/27/2018 11:52 PM [facility] Osmolality Calculated 268(L) 270 - 300 mOsm/kg 11/27/2018 11:52 PM [facility] Albumin/Globulin Ratio 1.5 1.1 - 2.3 11/27/2018 11:52 PM [facility] eGFR >60 >60 mL/min/1.7 3 m2 11/27/2018 11:52 PM [facility] Blood BLOOD SPECIMEN / Unknown Venipuncture / Unknown 11/27/2018 11:32 PM CDT 11/27/2018 11:34 PM CDT Eliane Tai MD LAB - CHEMISTRY [facility]SH[facility] Organization Address City/State/[facility] Co de Phone Number [address] [phone] * (ABNORMAL) CBC W AUTO DIFFERENTIAL (11/27/2018 11:32 PM CDT) WBC 5.7 3.5 - 10.5 10? 3 /uL 11/27/2018 11:37 PM [facility] RBC 4.19(L) 4.30 - 5.70 10? 6 /uL 11/27/2018 11:37 PM [facility] Hemoglobin 13.8 13.5 - 17.5 g/dL 11/27/2018 11:37 PM [facility] Hematocrit 38.1(L) 39.0 - 50.0 % 11/27/2018 11:37 PM [facility] MCV 90.9 81.0 - 97.0 fL 11/27/2018 11:37 PM [facility] MCH 32.9 28.0 - 34.0 pg 11/27/2018 11:37 PM [facility] MCHC 36.2(H) 32.0 - 36.0 g/dL 11/27/2018 11:37 PM [facility] Platelet Count 161 150 - 400 10? 3 /uL 11/27/2018 11:37 PM [facility] RDW-SD 38.8 36.0 - 50.0 fL 11/27/2018 11:37 PM [facility] RDW-CV 11.6 11.2 - 14.8 % 11/27/2018 11:37 PM [facility] MPV 10.4 9.3 - 12.8 fL 11/27/2018 11:37 PM [facility] nRBC Absolute 0.00 0 10? 3 /uL 11/27/2018 11:37 PM [facility] nRBC Auto 0.0 0 /100 WBC 11/27/2018 11:37 PM [facility] Neutrophils % 66.7 35.0 - 70.0 % 11/27/2018 11:37 PM [facility] Lymphocytes % 20.4 19.7 - 55.1 % 11/27/2018 11:37 PM [facility] Monocytes % 8.1 3.0 - 15.0 % 11/27/2018 11:37 PM [facility] Eosinophils % 4.2 0.0 - 6.0 % 11/27/2018 11:37 PM [facility] Basophil % 0.4 0.0 - 1.5 % 11/27/2018 11:37 PM [facility] Neutrophils Absolute 3.8 1.6 - 7.0 10? 3 /uL 11/27/2018 11:37 PM [facility] Lymphocyte Absolute 1.2 0.8 - 2.9 10? 3 /uL 11/27/2018 11:37 PM [facility] Monocytes Absolute 0.46 0.14 - 0.66 10? 3 /uL 11/27/2018 11:37 PM [facility] Eosinophils Absolute 0.24 0.00 - 0.45 10? 3 /uL 11/27/2018 11:37 PM [facility] Basophils Absolute 0.02 0.00 - 0.06 ? 3 /uL 11/27/2018 11:37 PM [facility] Immature Granulocytes % 0.2 0.0 - 1.0 % 11/27/2018 11:37 PM [facility] Blood BLOOD SPECIMEN / Unknown Venipuncture / Unknown 11/27/2018 11:32 PM CDT 11/27/2018 11:34 PM CDT Eliane Tai MD LAB - HEMATOLOGY ORD ERABLES [facility] [address] [place] [address], [facility] [phone] documented in this encounter Visit Diagnoses Diagnosis Seizure (HCC) Other convulsions documented in this encounter Administered Medications Inactive Administered Medications - up to 3 most recent administrations Medication Order MAR Action Action Date Dose Rate Site 0.9% NaCl injection 1-10 mL 1-10 mL, Intracatheter, PRN, Other, peripheral line flush, Starting on Tue11/27/18 at 2302, Until Tue11/28/18 at 0213, Flush peripheral IV catheter with 1-10 mL of normal saline before and after medications and prn to clear blood from the line or to verify patency. 0.9% NaCl injection 3 mL 3 mL, Intracatheter, EVERY 8 HOURS, 1095 doses, First dose on Tue11/27/18 at 2345, Last dose on Tue11/27/19 at 1400, Flush peripheral IV catheter with 3 mL of normal saline every 8 hours. documented in this encounter Active and Recently Administered Medications Times are shown in CDT. Scheduled Medication Order 11/26/2018 11/27/2018 11/28/2018 0.9% NaCl injection 3 mL(Linked Group 1) 3 mL, Intracatheter, EVERY 8 HOURS, 1095 doses, First dose on Tue11/27/18 at 2345, Last dose on Tue11/27/19 at 1400, Flush peripheral IV catheter with 3 mL of normal saline every 8 hours. 2332 (Canceled Entry - Provider: Shane Staley RN) PRN Medication Order 11/26/2018 11/27/2018 11/28/2018 0.9% NaCl injection 1-10 mL(Linked Group 1) 1-10 mL, Intracatheter, PRN, Other, peripheral line flush, Starting on Tue11/27/18 at 2302, Until Tue11/28/18 at 0213, Flush peripheral IV catheter with 1-10 mL of normal saline before and after medications and prn to clear blood from the line or to verify patency. Linked Groups Order Group 1: SALINE LOCK, INSERT AND MAINTAIN (COMPLETED) Routine, CONTINUOUS, Starting on Tue11/27/18 at 2315, Until Specified, New collection And 0.9% NaCl injection 3 mLJump to med 3 mL, Intracatheter, EVERY 8 HOURS, 1095 doses, First dose on Tue11/27/18 at 2345, Last dose on Tue11/27/19 at 1400, Flush peripheral IV catheter with 3 mL of normal saline every 8 hours. And 0.9% NaCl injection 1-10 mLJump to med 1-10 mL, Intracatheter, PRN, Other, peripheral line flush, Starting on Tue11/27/18 at 2302, Until Tue11/28/18 at 0213, Flush peripheral IV catheter with 1-10 mL of normal saline before and after medications and prn to clear blood from the line or to verify patency. documented in this encounter Care Teams U.[place]. Representative Relationship Specialty Start Date End Date Misael Maradiaga DO PCP - General 10/03/17 09/15/20 Elizabeth Sullivan, RN Electronic Transaction Implementer 10/14/17 documented as of this encounter
--- OUTSIDE RECORDS SUMMARY | 2024-06-08 05:43 | XMS_ITS | Encounter Summary ---
Author Organization [facility] Health Address [address] [facility] [place] [address] Care Team Providers Care Hydroelectric Operator Name Role Phone Misael Maradiaga DO Primary Care Provider Elizabeth Sullivan RN Unavailable [phone] Reason for Visit * Reason Comments Seizure Pt BIBEMS for unwitn essed seizure tonight around 1hr ago. Pt states he fell out of bed and hit his posterior head on bedside dresser during attack. Hx seizures, HTN. Pt states he takes keppra and has not missed a dose * Auth/Cert Specialty Diagnoses / Procedures Referred By Anabella t Referred To Contact Referral ID Status Reason Start Date Expiration Date Visits Re quested Visits Authorized [id number] 1 1 Encounter Details Date Type Department Care Team (Late st Contact Info) Description 01/14/2019 12:10 AM CDT - 01/15/2019 7:16 PM CDT Emergency [address] [address] Caio Elder MD [facility] [facility] [place] [id number] Augie Calhoun MD [address] [facility] [place] [address] Crescencio Carney MD [address] [place] [address] Neurology Discharge Disposition: Home or Self Care [...] Sign Reading Time Taken Comments Blood Pressure 141/94 01/15/2019 4:14 PM CDT Pulse 80 01/15/2019 4:14 PM CDT Temperature 36.9 ??C (98.5 ??F) 01/15/2019 4:14 PM CD T Respiratory Rate 18 01/15/2019 4:14 PM CDT Oxygen Saturation 100% 01/15/2019 4:14 PM CDT Inhaled Oxygen Concentration - - Weight 72.6 kg (160 lb) 01/14/2019 12:17 AM CDT Height 180.3 cm (5' 11 ) 01/14/2019 12:17 AM CDT Body Mass Index 22.32 01/14/2019 12:17 AM CDT documented in this encounter Functional [...] 01/15/2019 documented as of this encounter Discharge Summaries * Everett Rich - 01/15/2019 4:19 PM CDT Discharge Summary Patient ID: Bi Tabor [id number] 58 year old 1960 Admit date: 01/14/2019 Discharge date and time: 01/15/19 Admitting Physician: Crescencio Carney MD Discharge Physician: Crescencio Carney MD Present on Admission: None Discharge Diagnoses: Seizure Admission Condition: fair Discharged Condition: stable Indication for Admission: seizure management Hospital Course: Mr. Tabor is a 58 year old male with PMH of stroke (since 50 years old), and seizures (also since 50 years old), and HTN, presented to ED on 01/14/19 for seizure. Reported that he was lying in bed watching television when his hands and legs began shaking, then he fell out of bed and hit his head. Episode lasted approximately 5 minutes and was not associated with loss of consciousness or incontinence. Had one similar episode in ED, but no others during remainder of hospitalization. Denies recent alcohol use, substance use, or illness. On admission, laboratory results showed hyponatremia to 126 and a Depakote level <2. Patient was loaded with valproate 1,500 mg IV. It was discovered that courtney wells mistakenly thought he was to discontinue his Depakote after his last hospitalization. After discussion with [facility] neurologist (Dr. Feliciano), patient was discharged under the care of his family, with instructions to take Keppra 2,000 mg BID and Depakote 500 BID and a follow up clinic appointment scheduled. Patient was instructed to discontinue oxcarbazepine and eslicarbazepine. To follow outpatient/PCP: 10:[address] Feliciano on 02/15/19 Significant Diagnostic Studies: Labs this admission: CBC: Recent Labs Lab Units 01/14/19 0122 WBC 10??3/uL 5.1 RBC 10??6/uL 4.15* HGB g/dL 13.7 HCT % 37.9* BMP: Recent Labs Lab Units 01/15/19 1103 01/15/19 0722 01/14/19 1157 01/14/19 0123 NA mmol/L 132* 134* 127* 126* CL mmol/L -- 101 -- 95* CO2 mmol/L -- 23 -- 18* BUN mg/dL -- 9 -- 8 CREATININE mg/dL -- 0.7 -- 0.7 GLU mg/dL -- 109 -- 91 CALCIUM mg/dL -- 9.9 -- 9.2 Magnesium: No results for input(s): MG in the last 168 hours. Phosphorus: Recent Labs Lab Units 01/14/19 0123 PHOS mg/dL 3.1 Coagulation: No results for input(s): PT, INR, APTT in the last 168 hours. Endocrine: No results for input(s): TSH, A1C in the last 168 hours. LFTs: Recent Labs Lab Units 01/14/19 0123 AST Units/L 22 ALT Units/L 15 TBILI mg/dL 0.5 ALB g/dL 4.2 Imaging: Ct Head Wo Contrast Result Date: 01/14/2019 IMPRESSION: 1.No acute intracranial hemorrhage, midline shift, or significant mass effect 2.Generalized volume loss, chronic infarcts and nonspecific white matter changes, likely vascular related. 3.No significant change from prior. This report was approved by Rosa Gupta on 01/14/2019 1:09 PM . IDr. WOJCIECH have personally reviewed and interpreted this examination/study. This report was electronically signed by WOJCIECH NEIL on 01/14/2019 1:[address] Head Wo Contrast Result Date: 12/28/2018 IMPRESSION: No acute intracranial hemorrhage, mass effect, midline shift. 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 Dictated by Kamila Childs M.D. (vice president of software engineering). This report was approved by Kamila Childs on 12/28/2018 7:[address] WOJCIECH Thomason have personally reviewed and interpreted this examination/study. This reportwas electronically signed by WOJCIECH NEIL on 12/28/2018 7:[address] Head Non Contrast Result Date: 08/07/2018 IMPRESSION: 1. No acute intracranial process. 2. Unchanged chronic infarcts in the right occipital lobe and left thalamus. Dr. VIVIAN Thomason have personally reviewed and interpreted this examination/study. This report was electronically signed by VIVIAN LAMAS on 08/07/2018 2:[address] Head Wo Contrast Result Date: 06/10/2018 IMPRESSION: 1. No acute intracranial abnormality. No acute calvarial fracture 2. No evidence of acute fracture the cervical spine. Degenerative changes as described above. I, Dr. VIVIAN LAMAS have personally reviewed and interpreted this examination/study. This report was electronically signed by VIVIAN LAMAS on 06/10/2018 10:[address] Head Non Contrast Result Date: 04/30/2018 IMPRESSION: 1. No acute intracranial process. 2. Right occipital encephalomalacia is consistent with a chronic infarct. I, Dr. LORI HIGUERA M.D. have personally reviewed and interpreted this examination/study. This report was electronically signed by LORI HIGUERA M.D. on 04/30/2018 1:[address] Head Wo Contrast Result Date: 03/31/2018 IMPRESSION: 1. No acute intracranial process. 2. No acute facial bone fracture. Dictated by Carrie Paiz M.D. (vice president of software engineering). I, Dr. VIVIAN LAMAS have personally reviewed and interpreted this examination/study. This report was electronically signed by VIVIAN LAMAS on 03/31/2018 3:[address] Head Wo Contrast Result Date: 03/04/2018 IMPRESSION: 1.No acute intracranial hemorrhage, mass effect, or midline shift. 2.Generalized cerebral and cerebellar volume loss and significant right hippocampal volume loss. 3.Chronic right occipital encephalomalacia and nonspecific white matter changes, likely vascular related. This report was ap proved by Priyanka Walker on 03/04/2018 4:12 PM . I, Dr. WOJCIECH NEIL have personally reviewed andinterpreted this examination/study. This report was electronically signed by WOJCIECH NEIL on03/04/2018 4:[address] Facial Bones Wo Contrast Result Date: 03/31/2018 IMPRESSION: 1. No acute intracranial process. 2. No acute facial bone fracture. Dictated by Carrie Paiz M.D. (vice president of software engineering). I, Dr. VIVIAN LAMAS have personally reviewed and interpreted this examination/study. This report was electronically signed by VIVIAN LAMAS on 03/31/2018 3:[address] Cervical Spine Non Contrast Result Date: 08/07/2018 IMPRESSION: 1. No evidence of acute fracture in the cervical spine. 2. Severe degenerative changes centered at C5, C6, and C7, without interval change in appearance. I, Dr. VIVIAN LAMAS have personally reviewed and interpreted this examination/study. This report was electronically signed by VIVIAN LAMAS on 08/07/2018 2:[address] Cervical Spine Wo Contrast Result Date: 06/10/2018 IMPRESSION: 1. No acute intracranial abnormality. No acute calvarial fracture 2. No evidence of acute fracture the cervical spine. Degenerative changes as described above. I, Dr. VIVIAN LAMAS have personally reviewed and interpreted this examination/study. This report was electronically signed by VIVIAN LAMAS on 06/10/2018 10:58 AM . Mri Cervical Spine Wo Contrast Result Date: 02/13/2018 IMPRESSION: 1. New gentle kyphosis of the cervical spine and new spondylolisthesis at C4-5. 2. Stable severe degenerative disc disease at C5-6, C6-7. 3. Stable multilevel degenerative joint disease as described above. 4. No visible cord compression, abnormal signal intensity in the cord, or other si gnificant changes from CT dated 08/29/2016. This report was approved by Jannette Hubbard M.D. on 02/13/2018 2:30 PM . IDr. YOBANI have personally reviewed and interpreted this examination/study. This report was electronically signed by YOBANI WILLSON on 02/13/2018 6:38 PM . Discharge Exam: General: No acute distress. HEENT: Normocephalic/atraumatic. Sclera anicteric. Chest: Non-labored on room air Cardiovascular: Normal rate Abdomen: non-distended Extremities: No clubbing, cyanosis or edema. Cortical Function: MS: Awake, alert, follows commands Oriented to person, place and time Language: Fluent, coherent, repetition intact VF Intact to confrontation test Neglect No visual neglect, no tactile neglect Cranial Nerves: Pupils 3 mm [...] 2 2 2 2 2 Down Sensory: Light touch: Intact Cerebellar: Qhalor-aebp-rocezk, grle-nuvv-vcpz and rapid alternating movements intact bilaterally No dysmetria Gait: Normal stride and stance Normal tandem Disposition: Relative's home Patient Instructions: Medication List CONTINUE taking these medications acetaminophen 325 MG tablet Commonly known as: TYLENOL amLODIPine 5 MG tablet Commonly known as: NORVASC Take 1 tablet by mouth once daily aspirin 81 MG chew tablet Commonly known as: ASPIRIN Take 1 tablet by mouth once daily atorvastatin 20 MG tablet Commonly known as: LIPITOR B-12 1000 MCG Take 1 mg by mouth once daily clonazePAM 0.5 MG tablet Commonly known as: KlonoPIN Take 1 tablet as needed after a seizure to prevent clustering, every 8 hours as needed. divalproex [address] 500 MG tablet Commonly known as: DEPAKOTE Take 1 tablet by mouth 2 times daily for 30 days folic acid 1 MG tablet Commonly known as: FOLVITE Take 1 tablet by mouth once daily ibuprofen 600 MG tablet Commonly known as: MOTRIN levETIRAcetam 1000 MG tablet Commonly known as: KEPPRA Take 2 tablets by mouth 2 times daily for 30 days tamsulosin 0.4 MG capsule Commonly known as: FLOMAX thiamine 100 MG tablet Commonly known as: VITAMIN B-1 Take 1 tablet by mouth once daily STOP taking these medications eslicarbazepine 800 MG tablet Commonly known as: APTIOM sodium chloride 1 GM tablet Where to Get Your Medications These medications were sent to [id number] - [id number] [facility] [id number] & [address] [address] ?? divalproex DR 500 MG tablet ?? levETIRAcetam 1000 MG tablet Discharge Instructions You were evaluated for seizures Some of your medications were changed as follows: Levetiracetam (Keppra): You will now take 2 tablets twice per day for a total of 2000 mg twice per day Divalproex DR (Depakote): You will take 500 mg twice per day Please STOP taking eslicarbazepine (Aptiom) and oxcarbazepine You will have a clinic appointment with Dr. Feliciano on January at 10:00 AM. Please arrive to [facility] at [address] [place] [id number], which is across the street from the main entrance to [facility]. If you need to call [facility] for any reason, you may reach us at [phone] and dial [phone] for the runstitching machine operator. If you have any questions about your medications, please ask the pharmacy when you machine operator picker your prescription. You may also call your primary provider if you are uncertain if you should be taking yourmedication. CONCERNING SYMPTOMS: Call your healthcare provider immediately if you have any of the following: - Fever or chills - Intractable nausea and vomiting - Bleeding - Confusion/altered mental status - Seizures (convulsions) - Weakness in arms/legs - Dizziness If you are unable to reach your primary provider, please go to the nearest emergency room or call . Sincerely, Neurology Department [facility] [address] [place] [address] Signed: LISETTE Santizo documented in this encounter Discharge Instructions * Discharge Instructions* Everett Rich - 01/15/2019 4:19 PM CDT You were evaluated for seizures Some of your medications were changed as follows: Levetiracetam (Keppra): You will now take 2 tablets twice per day for a total of 2000 mg twice per day Divalproex DR (Depakote): You will take 500 mg twice per day Please STOP taking eslicarbazepine (Aptiom) and oxcarbazepine You will have a clinic appointment with Dr. Feliciano on January at 10:00 AM. Please arrive to the [facility] at [address] [place] [address], which is across the street from the main entrance to [facility]. If you need to call [facility] for any reason, you may reach us at [phone] and dial [phone] for the runstitching machine operator. If you have any questions about your medications, please ask the pharmacy when you machine operator picker your prescription. You may also call your primary provider if you are uncertain if you should be taking yourmedication. CONCERNING SYMPTOMS: Call your healthcare provider immediately if you have any of the following: - Fever or chills - Intractable nausea and vomiting - Bleeding - Confusion/altered mental status - Seizures (convulsions) - Weakness in arms/legs - Dizziness If you are unable to reach your primary provider, please go to the nearest emergency room or call . Sincerely, Neurology Department [address] [address] documented in this encounter Medications at Time [...] as of this encounter Progress Notes * Emilee Jean - 01/15/2019 3:44 PM CDT Neurology Progress Note 01/15/2019 3:44 PM Bi Tabor 0 Subjective: Bi Tabor is a 58 year old male with a PMH of stroke with left-sided weakness, seizures, and chronic hyponatremia who presented to the ED on 01/14 after a seizure. Patient was at home watching TV when he developed generalized shaking that lasted 5 minutes. Patient denies losing consciousness during this episode. He states that he fell out of bed and hit the posterior aspect of his head during the episode. CT head preformed on arrival was negative for acute hemorrhage. Patient states that he has two seizure types. One consists of dizziness and lightheadedness. The other is generalized tonic clonic seizure with tongue biting. Patient was last admitted to [facility] for seizures on 12/27/18 and has been seen in the ED multiple times this year with similar presentation. No significant overnight events. Objective: On exam, patient was alert and orientated to self, place, and time. Patient was cooperative with exam. BP 133/77 Pulse 94 Temp 98.2 ??F (36.8 ??C) (Oral) Resp 18 Ht 5' 11 Wt 160 lb SpO2 100% BMI 22.32 kg/m2 Exam: General appearance: alert, well appearing, and in no distress and oriented to person, place, and month. Head: Normocephalic, without obvious abnormality, atraumatic Eyes: conjunctivae/corneas clear,icterus Nose: No drainage or sinus tenderness. Throat: MMM Neck: supple, symmetrical, No LAD and no JVD Back: symmetric. ROM normal. Lungs: CTABL without any wheezing or crepitions Heart: RRR, normal S1 and S2, no murmur Abdomen: soft, non-tender. Bowel sounds normal. No masses, no organomegaly Extremities: no cyanosis or edema Pulses: 2+ and symmetric no clubbing Skin: No skin ulcers or rash on cursory exam Cortical Function: MS: Awake, Alert, Follows Commands Oriented to Person, Place and Time Language: Fluent, Coherent, Repetition Intact VF Intact [...] 2 2 Down Sensory: Intact to light touch Cerebellar: FNF intact bilaterally Gait: Deferred Labs: Na: 132 mmol/L Vitamin D 25-hydrdoxy: 6.7 ng/mL Keppra serum level: pending Carbamazepine serum level: 1.9 mcg/mL on admission Valproic acid serum level: 66 mcg/mL on 01/15/19 Medications: Current Facility-Administered Medications Medication ??? 0.9% NaCl infusion ??? 0.9% NaCl injection 3 mL And ??? 0.9% NaCl injection 1-10 mL ??? acetaminophen (TYLENOL) tablet 650 mg ??? amLODIPine (NORVASC) tablet 5 mg ??? aspirin chew tablet 81 mg ??? atorvastatin (LIPITOR) tablet 20 mg ??? divalproex DR (DEPAKOTE) tablet 500 mg ??? folic acid (FOLVITE) tablet 1 mg ??? heparin injection 5,000 Units ??? levETIRAcetam (KEPPRA) tablet 2,000 mg ??? sodium chloride tablet 1 g ??? tamsulosin (FLOMAX) capsule 0.4 mg Imaging: CT HEAD WO CONTRAST Final Result EXAMINATION: Computed tomography (CT) of the head without contrast HISTORY: Head trauma COMPARISON: CT head from 12/27/2018 TECHNIQUE: CT of the head was performed without contrast according to standard protocol. FINDINGS: No acute intra- or extra-axial fluid [...] papyracea defect/fracture, the orbits appear normal. There is mild paranasal sinus disease. Cerumen is noted in the right external auditory canal. The mastoid air cells are clear. There is a unchanged hypodense lesion in the left occipital scalp, likely a sebaceous cyst. IMPRESSION: 1.No acute intracranial hemorrhage, midline shift, or significant mass effect 2.Generalized volume loss, chronic infarcts and nonspecific white matter changes, likely vascular related. 3.No significant change from prior. This report was approved by Rosa Gupta on 01/14/2019 1:09 PM . I, Dr. WOJCIECH NEIL have personally reviewed and interpreted this examination/study. This report was electronically signed by WOJCIECH NEIL on 01/14/2019 1:12 PM . Assessment and Plan Bi Tabor is a 58 year old male with a PMH of stroke, seizures, and chronic hyponatremia who came in on 01/14 after having a seizure. Seizure likely due medication non-compliance as patient had low serum levels of valproic acid and carbamazepine. Other possible etiology is hyponatremia as patient had a serum sodium of 126 on admission. Patient's hyponatremia has improved as serum sodium was 132 today. Will continue monitor serum sodium with goal level of >135. Hyponatremia - serum sodium 132 mmol/L - 1 g NaCl tablet BID - restrict fluid intake to 2 L daily - recheck serum Na Q12 Seizures - Q4 neuro checks - hold home medication of eslicarbazepine - Depakote 500 mg BID - Keppra 2000 mg BID - switch to Depakote XR 1250 mg Q daily on discharge - switch to Keppra XR 4000 mg Q daily on discharge Dispo - PT and OT recommending patient return home with home health when medically stable Case findings discussed with Dr. Carney, Neurology Attending. Emilee Jean Medical Student 01/15/2019 3:44 PM * Elizabeth Sullivan RN - 01/15/2019 12:44 PM CDT Pt is new to my service today, 01/15/19. Pt is OBS Class. A Chart Review has been conducted by Case Management. Anticipated level of care at discharge: Unknown Discharge Plan: Pt to discharge to prior level of care. CM to follow. Basic Needs Assessment (BNA) Score:11 PCP: Misael Maradiaga, Per nursing assessments: Transportation (who): Pt has transportation benefits through insurance. Counter Stitcher/Support: Counter Stitcher person: Home/Functional Status: Assistive Devices: Walker ?. Will continue to follow. For any questions or needs please contact: Chief Design Branch Name/Phone number: Elizabeth Sullivan RN [phone] * Aidee Archibald RN - 01/15/2019 12:24 PM CDT Problem: Fall Risk Goal: Patient will remain free of falls Outcome: Ongoing Problem: Seizures Goal: Seizures are under control or absent Outcome: Ongoing Problem: Balance Goal: LTG - Patient will maintain standing and sitting balance to allow for completion of daily activities Outcome: Ongoing * Penny Pimentellivia - 01/15/2019 11:09 AM CDT [facility] Physical Medicine and Rehabilitation Occupational Therapy Initial Evaluation Note Patient: Bi Tabor [facility] Record Number: [id number] Date of : 1960 Age: [age] year old Discharge Recommendation: Patient should be able to return home w/ HOME HEALTH when functionally able (see current amount of assist needed below). Frequency: Patient to be scheduled 5x/week while in hospital. Plan: ADL training Adaptive equipment training Cognitive retraining Functional transfer training Endurance training Bed mobility Energy conservation Safety awareness HEP training Physician Orders: Evaluation and Treat Precautions: DIAGNOSIS: Patient Active Problem List: Seizure Headache, unspecified headache type Hyponatremia Past Medical History: Diagnosis Date ??? CVA (cerebral vascular accident) ??? HTN (hypertension) ??? Seizure SUBJECTIVE / PATIENT GOALS: I'm moving pretty good. I just can't remember everything Home living: Type of Residence: Private Residence Lives with:: Alone Steps to Enter: No Ramp: No Handrails: Outdoor Home Structure: One Story Equipment At Home: Walker-4 Wheeled with Seat Prior Function: Mobility: Independent;With Assistive Device;Ambulate-In Home Fallen Within 6 Mos: No Have Help at Home?: Yes, there is help at home now How often is assistance provided?: home PT and nursing, choreworker Level of Help Sufficient?: Yes Oxygen at Home: No Activity at Home: Active Vision: Corrected with glasses Hearing Exceptions: No impairment Who manages medications?: Family and Chore Workers At start of therapy session, patient found ambulating to the hallway with rollator. Pain: Patient has 0/10 pain in body. Follow-up for pain: No follow-up for pain indicated and patient agreed to proceed with treatment OBJECTIVE: General Appearance: 58 y/o male found ambulating with rollator to hallway in NAD. Precautions: IV's: Peripheral line Edema: None Vital Signs:(*Assess the 3 levels of oxygen saturations both for room air and 02 unless rest on room air is 88% or less). Pre-activity BP: HR: SpO2: Room Air L O2 Peak activity BP: HR: SpO2: Room Air L O2 Post cool down BP: HR: SpO2: Room Air L O2 Cognitive: A&Ox self, birthday, location, day and month. Recalled year 1990. Follows 100% command following. Fair insight to deficits and fair safety awareness. Decreased executive function demonstrated through MOCA administration. Pt scored 9/30 demonstrating severe deficits in visuospatial, sh ort and penitentiary memory, attention, language, abstraction, delayed recall and orientation and needed mod verbal cues for completion. Pt has sufficient enough help at home despite cognitive deficits.Appears to be at or close to baseline. Perceptual: Pt wore reading glasses during evaluation. Appeared intact. Upper extremity range of motion: WFL Upper extremity strength: WFL, Manual Muscle Test, 5/ Tone: None noted Coordination: Finger Nose Finger- Bilaterally intact Sensation: Intact to light touch Patient's activity tolerance: good Comments: FUNCTIONAL MOBILITY Not tested Independent Stand by Assist Minimal Moderate Maximum Dependent Rolling x Supine to/from sit X-Pt found ambulating to hallway Sit to/from Standing x Bed to/from chair X-Pt sat EOB Functional mobility of ambulation to hallway with: SBA assist using rollator Balance: Static Sitting: good Dynamic Sitting: good Static Standing: good Dynamic Standing: not tested--Pt too fatigued after ambulating to hallway SBA using rollator Activities of Daily Living Feeding:SBA Grooming/Bathing: not tested --Pt completed prior to start of session Upper Extremity Dressing: not tested --Pt completed prior to session Lower Extremity Dressing: not tested --Pt completed prior to session Toileting/Transfers: not tested--Pt completed prior to session Splint Issued/Checked: none TREATMENT / EDUCATION / EVALUATION: Purpose of Occupational Therapy evaluation explained. While performing mobility, exercise and self care, Patient was instructed in: Functional mobility training/weight bearing status, Cognitive retraining, Safety awareness/fall precaution, Discharge plan and Self care training Presented to patient who demonstrates Fair understanding of instructions given. INFORMED CONSENT TO TREATMENT: Plan of care including recommended therapy, goals and frequency, as well as potential risks and benefits of treatment/assessment explained to patient. Patient understands and agrees to proceed. ASSESSMENT: Functional performance limited due to: decreased cognition and endurance Nurse contacted regarding patient status and/or discharge plan. Short Term Goals: Patient will increason orientation to place and situation Patient will perform grooming With stand by assist Patient will perform bathing With stand by assist Patient will perform toileting With stand by assist Half-Way Goal: Patient to be independent/baseline with functional mobility and self care and be able to safely discharge to prior level of care If patient is discharged from the facility, this note serves as a discharge summary if further occupational therapy visits did not occur. Following therapy session, patient left in bed, with call light within reach, with RNEphraim aware and eating lunch sitting EOB. Rhianna Pimentel 01/15/2019 * Naa Chicas, PT - 01/15/2019 9:35 AM CDT [facility] Physical Medicine and Rehabilitation Physical Therapy Initial Evaluation Note/Discharge Summary Patient: Bi Tabor Med Record Number: [id number] Date of : 1960 Age: [age] year old Discharge Recommendation: Patient should be able to return home with previous level of assistance. Frequency: One time visit/baseline Patient currently using rollator walker and has equipment at home. No equipment needs if d/c home. Occupational Therapy contacted regarding patient status and/or discharge plan. Physician Orders: Evaluation and Treat PRECAUTIONS: Fall and Seizure Activity Level as tolerated DIAGNOSIS: Patient Active Problem List: Seizure Headache, unspecified headache type Hyponatremia Past Medical History: Diagnosis Date ??? CVA (cerebral vascular accident) ??? HTN (hypertension) ??? Seizure SUBJECTIVE: Pt agreeable to PT evaluation. Pt reports overall feeling back to baseline - YesterdayI was crazy as a bat. Now I'm clear, I've got my wallet and my house keys. PATIENT GOALS: To return home Home living: Type of Residence: Private Residence Lives with:: Alone Steps to Enter: 2 Handrails: Outdoor Home Structure: One Story Equipment At Home: Walker-4 Wheeled with Seat Prior Function: Mobility: Independent;With Assistive Device;Ambulate-In Home Fallen Within 6 Mos: No Have Help at Home?: Yes, there is help at home now How often is assistance provided?: home PT and nursing, choreworker At start of therapy session, patient found on edge of bed and with no alarm; pt fully dressed in own clothes with personal rollator walker in room Pain: Patient has 0/10 pain Follow-up for pain: No follow-up for pain indicated and patient agreed to proceed with treatment OBJECTIVE: General Appearance: Thin adult male, in NAD Precautions: IV's: Peripheral line Skin, Incisions, Edema: BLE intact Vital Signs:(*Assess the 3 levels of oxygen saturations both for room air and 02 unless rest on room air is 88% or less). Rest: BP: HR: 82 O2 SAT: 100% RA Room Air L O2 Ex/Gait/Activity BP: HR: 95 O2 SAT: 99% RA Room Air L O2 Cool Down BP: HR: 81 O2 SAT: 98% RA Room Air L O2 Observations: MENTAL STATUS: Alert and oriented times 3 DIRECTION FOLLOWING: Able to follow 1 step commands 100% ROM: BLE WFL STRENGTH: BLE WFL FUNCTIONAL MOBILITY Not Tested Not Applicable Independent Stand by Assist Minimal Moderate Maximum Dependent Rolling x Scooting x Supine to/from sit x Sit to/from Stand x Bed to/ chair x Observation: pt sitting on EOB upon PT arrival, returns to supine at end of session BALANCE: Sitting Static: good Dynamic: good Standing Static: good Dynamic: fair plus GAIT: Weight Bearing: WBAT Distance: 350 feet Device: rollator walker Assistance: Independent Balance: fair plus Steps: pt declines stair assessment It's only two little steps and I lift this thing (points to walker) by myself fair endurance Observation: pt with forward trunk flexion, decreased gait speed; no LOB or safety concerns ACTIVITY TOLERANCE: Patient's activity tolerance: fair TREATMENT/INTERVENTIONS: evaluation EDUCATION: While performing PT, Patient was instructed in:Functional mobility training/weight bearing status and Safety awareness/fall precaution Patient demonstrated Good understanding of instructions given. INFORMED CONSENT TO TREATMENT: Plan of care including recommended therapy, goals and frequency, discussed with patient who understands and agrees to proceed. ASSESSMENT: Patient demonstrates independence/ baseline with mobility/exercise. No continued Physical Therapy indicated at this time. Short Term Goals: Patient will transfer supine to/from sit Independently (Met) Sit to stand goal: Independently (Met) Patient will ambulate > 200 feet, Independently and With assistive device (Met) Half-Way Goal(s): Patient to be independent/baseline with functional mobility and self care and be able to safely discharge to prior level of care Equipment Issued: gait belt Plan: Acute PT goals met If patient is discharged from the facility, this note serves as a discharge summary if further physical therapy visits did not occur. Following therapy session, patient left in bed, with call light within reach and with RNEphraim, PT 01/15/2019 * Sarah Jordan RN - 01/15/2019 3:51 AM CDT Patient will be compliant in taking seizure medications. * Sarah Jordan RN - 01/15/2019 3:48 AM CDT Patient will ask for assistance before getting out of bed. * Emilee Jean - 01/14/2019 11:25 AM CDT Neurology Progress Note 01/14/2019 11:26 AM Bi Tabor 0 Subjective: Bi Tabor is a 58 year old male with a PMH of stroke with left-sided weakness, seizures, and chronic hyponatremia who presented to the ED on 01/14 after a seizure. Patient was at home watching TV when he developed generalized shaking that lasted 5 minutes. Patient denies losing consciousness during this episode. He states that he fell out of bed and hit the posterior aspect of his head during the episode. CT head preformed on arrival was negative for acute hemorrhage. Patient states that he has two seizure types. One consists of dizziness and lightheadedness. The other is generalized tonic clonic seizure with tongue biting. Patient was last admitted to [facility] for seizures on 12/27/18 and has been seen in the ED multiple times this year with similar presentation. No significant overnight events. Objective: On exam, patient was alert and orientated to self, place, and month. Patient said the year was 2018 . Patient stated that he takes his seizure medications regularly and was unsure why his serum levels were low. BP 138/84 Pulse 72 Temp 97.8 ??F (36.6 ??C) (Oral) Resp 13 Ht 5' 11 Wt 160 lb SpO2 100% BMI 22.32 kg/m2 Exam: General appearance: alert, well appearing, and in no distress and oriented to person, place, and month. Head: Normocephalic, without obvious abnormality, atraumatic Eyes: conjunctivae/corneas clear,icterus Nose: No drainage or sinus tenderness. Throat: MMM Neck: supple, symmetrical, No LAD and no JVD Back: symmetric. ROM normal. Lungs: CTABL without any wheezing or crepitions Heart: RRR, normal S1 and S2, no murmur Abdomen: soft, non-tender. Bowel sounds normal. No masses, no organomegaly Extremities: no cyanosis or edema Pulses: 2+ and symmetric no clubbing Skin: No skin ulcers or rash on cursory exam Cortical Function: MS: Awake, Alert, Follows Commands Oriented to Person, Place and Time Language: Fluent, Coherent, Repetition Intact VF Intact [...] 2 2 Down Sensory: Intact to light touch Cerebellar: FNF intact bilaterally Gait: Deferred Labs: Na 126 Osmolality 260 Keppra serum level pending Carbamazepine serum level 1.9 Valproic acid serum level <2 Medications: Current Facility-Administered Medications Medication ??? 0.9% NaCl injection 3 mL And ??? 0.9% NaCl injection 1-10 mL ??? divalproex DR (DEPAKOTE) tablet 500 mg ??? heparin injection 5,000 Units ??? levETIRAcetam (KEPPRA) tablet 2,000 mg ??? sodium chloride tablet 1 g Current Outpatient Medications Medication Sig ??? acetaminophen (TYLENOL) 325 MG tablet ??? amLODIPine (NORVASC) 5 MG tablet Take 1 tablet by mouth once daily ??? aspirin (ASPIRIN) 81 MG chew tablet Take 1 tablet by mouth once daily (Patient not taking: Reported on 12/29/2018) ??? atorvastatin (LIPITOR) 20 MG tablet ??? clonazePAM (KLONOPIN) 0.5 MG tablet Take 1 tablet as needed after a seizure to prevent clustering, every 8 hours as needed. ??? Cyanocobalamin (B-12) 1000 MCG Take 1 mg by mouth once daily ??? divalproex DR (DEPAKOTE) 500 MG tablet Take 1 tablet by mouth 2 times daily ??? eslicarbazepine (APTIOM) 800 MG tablet Take 1 tablet by mouth once daily ??? folic acid (FOLVITE) 1 MG tablet Take 1 tablet by mouth once daily ??? ibuprofen (MOTRIN) 600 MG tablet ??? levETIRAcetam (KEPPRA) 1000 MG tablet Take 2 tablets by mouth 2 times daily ??? sodium chloride 1 GM tablet Take 1 tablet by mouth once daily ??? tamsulosin (FLOMAX) 0.4 MG capsule ??? thiamine (VITAMIN B-1) 100 MG tablet Take 1 tablet by mouth once daily Imaging: CT HEAD WO CONTRAST (Results Pending) Assessment and Plan Bi Tabor is a 58 year old male with a PMH of stroke, seizures, and chronic hyponatremia who came in on 01/14 after having a seizure. Seizure likely due medication non-compliance as patient had low serum levels of valproic acid and carbamazepine. Other possible etiology is hyponatremia as patient had a serum sodium of 126 on admission. Will admit for observation and management of hyponatremia. Hyponatremia - 1 g NaCl tablet BID - restrict fluid intake to 2 L daily - recheck serum Na Q12 Seizures - hold home medication of eslicarbazepine - Depakote 500 mg BID - Keppra 2000 mg BID - switch to Depakote XR 1250 mg Q daily on discharge - switch to Keppra XR 4000 mg Q daily on discharge Case findings discussed with Dr. Carney, Neurology Attending. [facility] Medical Student 01/14/2019 11:26 AM * Ivy Xie, PT - 01/14/2019 10:01 AM CDT [facility] Department of Physical Medicine & Rehabilitation Progress Note Patient: Bi Tabor [facility] Record Number: [id number] Date of : 1960 Age: [age] year old 01/14/19 1000 Missed Visit Missed Visit Refused Patient refused therapy intervention due to Fatigue;RN Notified of Refusal Ivy Xie PT 01/14/2019 10:01 AM * Svetlana Skaggs OT - 01/14/2019 9:17 AM CDT [facility] Department of Physical Medicine & Rehabilitation Progress Note Patient: Bi Tabor [facility] Record Number: [id number] Date of : 1960 Age: [age] year old 01/14/19 1000 Missed Visit Missed Visit Refused Patient refused therapy intervention due to Fatigue;RN Notified of Refusal Pt also with c/o headache s/p seizure. RN aware. ALEJANDRA Ulrich/Kandi 01/14/2019 10:11 AM documented in this encounter Consult Notes * Crescencio Carney MD - 01/14/2019 2:27 AM CDTAssociated Order(s): IP CONSULT TO NEUROLOGY Neurology Consult Note/ History & Physical Patient: Bi Tabor Age: [age] year old Date Of Encounter: 01/14 Reason for consult/Chief Complaint: Seizure History of Presenting Illness: Bi Tabor is a 58 year old male with pmh significant for HTN, stroke (left side weakness) and refractory seizure since age 50 and chronic hyponatremia Presents toED at 12:11 am after a seizure. Neurology was consulted for management of the seizure. Per patient/note he developed generalized shakiness of his limbs at 10:30 last night, while watching TV. There is no witness to this seizure and He reports that he remained conscious during seizure that is usual for his seizures. fell out of the bed during seizure and hit her head to the ground. Hewas alert at arrival to ER, initial w/u including CMP, CBC, Was remarkable for severe hyponatremia (126) and hyposmolarity (260). BG was 91, Ca: 9.2, and brain CT was negative for acute intracranial pathology or hemorrhage but was remarkable for generalized brain loss. Alcohol level was zero, carbamazepine level was 1.9 and valproic acid level was less than 2. Of note, He mentioned that he has had two type of seizure, 1- small seizure as dizziness, light headedness or gait imbalance that happens every one to three weeks especially if forgets to take his medication and 2- major seizure as tonic clonic generalized seizure with tongue biting and it happens infrequently one to 3 time per year. He has had multiple admission to [facility] and [facility] for seizure this year and last year. Has tried different medication He had recently (12/27/2018) admitted to [facility] ED after having an episode of tensing up and not responding at home and was found to have breakthrough seizure related to non compliant/ confusion with his anti seizure medications. also was found to have hyponatremia (135). Due to hyponatremia Oxcarbamazepine was discontinued and Aptiom (Eslicarbazepine Acetate) was started at 800 mg nightly and was recommended to continue home Keppra 2,000 mg PO BID and Depakote DR 500 mgPO BID. The patient also has h/o prolonged post-ictal state that may last for days. However, appreci ates that he is taking keppra and Depakote twice daily but it not familiar with the name of Aptiom that was started earlier this month after discharge on 12/29. he denies memory impairment, double vision, blurred vision, difficulty swallowing or speaking, dizziness, vertigo, CP,SOB, facial droop or numbness, imbalance, CP, SOB, palpitation, numbness or tingling in UE/LE, weakness in UE/LE, bladder/bowel incontinence or tongue biting. He appreciates mild pos terior occipital headache after fall and hitting his head last night but it is improving. He denies drinking alcohol (stopped drinking since 3 years ago) and appreciates smoking (/ PPD) and denies doing cocaine Past Medical History No history on file. Past Medical History: Diagnosis Date ??? CVA (cerebral vascular accident) ??? HTN (hypertension) ??? Seizure No past surgical history on file. Allergies No Known Allergies Family History No family history on file. Social History Social History Social History Narrative ??? Not on file Review of Systems: Positive are in bold General - weight loss. Weight gain, or appetite, fever, chills ENT - dental or swallowing difficulties, headache, Cardiac - chest pain or palpitations Pulmonary - shortness of breath, cough, or sputum production Gastrointestinal - abdominal pain or changes in bowel habits Genitourinary - bladder incontinence or retention, bowel incontinence, Endocrine - heat or cold intolerance Musculoskeletal - myalgias or arthralgias, Muscle spasm, cramp, fasciculation Hematological - history of malignancy or blood abnormalities, LAD, Skin: rash, bruise, Neurological - See HPI Objective: BP 148/82 Pulse 89 Temp 97.8 ??F (36.6 ??C) (Oral) Resp 17 Ht 5' 11 (1.803 m) Wt 160 lb (72.6 kg) SpO2 100% BMI 22.32 kg/m2 Temp (30hrs) Max:98.4 ??F (36.9 ??C) Body mass index is 22.32 kg/m??. Exam: General: Con - NAD, afebrile, awake, alert, cooperative Heent - NCAT, PERRLA, MMM, anicteric Neck - No JVD, LAD, trachea midline CV - RRR for age, normal s1/s2, no m/r/g Pulm - CTAB, no w/r/r Abd - BS+, soft, NTND Ext: No c/c/e, 2+ dpp, normal ROM Cortical Function Mental Status Awake, alert, follows commands Orientation Oriented to Person, place, and situation but not to the time and president Language Fluency intact, comprehension intact, repetition intact [...] no atrophy noted. Motor Function Movement No tremor, jerks or abnormal movement was noted Bulk Normal Tone Normal Proximal Upper Distal Upper Proximal Lower Distal Lower Right 5/5 5/5 5/5 5/5 Left 5/5 5/5 5/5 5/5 Muscle Stretch Reflexes BI TRI BR PAT ACH TOES Right 2 2 2 2 2 Down Left 2 2 2 2 2 Down Sensory Light Touch Symmetric and intact bilaterally Pinprick Symmetric and intact bilaterally Temperature Not tested/ intact Vibration mild decreased in LE Cerebellar FNF FREEDOM HKS Right Intact Intact Intact Left Intact Intact Intact Gait Deferred/ Labs: CBC: Recent Labs Component Name 01/14/19 0122 12/29/18 0844 12/28/18 0347 WBC 5.1 7.6 12.0* RBC 4.15* 4.82 4.37 HGB 13.7 15.7 14.4 HCT 37.9* 45.3 40.8 BMP: Recent Labs Component Name 01/14/19 0123 12/29/18 0844 12/28/18 0347 NA 126* 140 139 CL 95* 103 104 CO2 18* 23 22 BUN 8 11 9 CREATININE 0.7 0.8 0.8 GLU 91 94 87 CALCIUM 9.2 9.4 9.4 LFTs: Recent Labs Component Name 01/14/19 0123 12/27/18 1239 11/27/18 2332 01/30/18 1255 10/14/17 1349 10/13/17 1526 AST 22 27 25 - 14 - 18 23 ALT 15 12 13 - 10 - 9 11 ALKPHOS 59 65 65 - 75 - 86 88 TBILI 0.5 0.6 0.5 - 0.4 - 0.6 1.4* DBILI - - - - 0.2 - 0.2 0.4 IBILI - - - - 0.2 - 0.4 1.0 ALB 4.2 5.0 4.1 - 3.7 - 3.9 4.8 - = values in this interval not displayed. Magnesium: No results for input(s): MG in the last 26899 hours. Phosphorus: Recent Labs Component Name 10/21/18 1231 01/30/18 1255 11/28/17 0455 PHOS 2.9 3.0 1.6* Coagulation: Recent Labs Component Name 04/11/15 0622 PT 12.1 INR 0.9 Cardiac markers: Recent Labs Component Name 10/21/18 1231 04/11/15 0622 TROPONINI 0.012 0.018 Lab results smartLinks are not currently available Neuroimaging: Brain CT : 01/13/2019 No acute intracranial pathology or hemorrhage Assessment and Recommendations: a 58 year old male with pmh significant for HTN, refractory seizure and stroke in 2017 (left side weakness) Presents to ED at 12:11 am after a seizure. Neurology was consulted for management of the seizure. developed generalized shakiness of his limbs at 10:30 last night, but had remained consciousduring seizure, fell out of the bed during seizure and hit her head initial w/u including CMP, CBC,Was remarkable for severe hyponatremia (126) and hyposmolarity (260). Head CT was unremarkable for acute intracranial pathology, Alcohol level was zero, carbamazepine level was 1.9 and valproic acid level was less than 2. has had multiple admission to ERs for seizure this year. recently (12/27/2018) admitted to [facility] ED after having an episode of breakthrough seizure related to non compliant/ and or hyponatremia (135). Due to hyponatremia Oxcarbamazepine was discontinued and Aptiom (Eslicarbazepine Acetate) was started at 800 mg nightly and was recommended to continue home Keppra 2,000 mg PO BID and Depakote DR 500 mg PO BID. Impression; Breakthrough seizure secondary to medication noncompliance and hyponatremia Hypotonic Hyponatremia secondary to medication side effect (Aptiom) Recommendations: Seizure Needs admission/observation to for mangement of severe hyponatremia Fall precaution Seizure precaution Neuro check q 4 h BMP, CBC, Mg and P daily, and correction of any metabolic/electrolyte abnormality Aptiom 800 mg qd Depacone 20 mg/kg iv loading dose Continue Keppra 2000 mg BID PO Then Continue Depakote DR 500 MG BID PO from 8 pm Hypotonic hyponatremia Chronic:More likely as a side effect of Aptiom or Oxcarbamazepine R/o other causes of hyponatremia like SIADH Sodium serum q 12 h Urine sodium/osmularity/vreatinin random Restriction of water intake to 2000 ml Per day starting Nacl tablet 1 g bid Case Finding was discussed with Dr. Carney Neurology Attending Germain Cardoza MD Neurology Resident , PGY3 Reviewed history, examined the patient, reviewed laboratory data and investigations. Agree with thedocumented resident notes, diagnosis and plan of management. History 58 year old male with pmh significant for HTN, refractory seizure and stroke in 2017 (left side weakness) Had another seizure. Fell out of bed and hit his head. CT no new lesion. Examination. A O X 3. Non focal exam. Diagnosis. Previous Stroke. Epilepsy on multiple AEDs. Low serum level of Depakote suggests non compliance. Hyponatremia. Plan Given IV Depakote load 20 mg/kg and restarted on Eslicarbazepine 800 mg/d, Keppra 2000 mg po bid. Discussed with Dr Feliciano and plan to switch to Keppra XR 4000 mg HS, Depakote XR 1250 mg, NaCL tabs for hyponatremia. Please see resident notes for details Crescencio Carney MD Attending Physician, Neurology documented in this encounter ED Notes * Franck Gao RN - 01/14/2019 6:25 PM CDT Patient handover given to Sarah harris , patient vitals are stable . Patient is calm and oriented * Franck Gao RN - 01/14/2019 5:48 PM CDT Patient is calm and oriented . Vital signs stable. Patient had his dinner and he ate 80% of his meal. * Franck Gao RN - 01/14/2019 2:34 PM CDT Patient is calm and oriented. No new complains of any pain or seizure activity. * Serjio Vilchis MD - 01/14/2019 2:17 PM CDT ASSUMED CARE NOTE Patient signed out to me by Dr. Calhoun at 2:07 PM. Briefly, Bi Tabor is a 58 year old male is being evaluated for seizures and hyponatremia. Ptwith hx of seizures, takes Keppra and Depakote. Also found to be hyponatremic to 126. Neurology hasadmitted to their service but suggested possible discharge earlier but will confirm recommendationsshortly. At this time the patient's condition is Stable per previous team. Pending bed availability Plan is admit to neurology Reassessment: 2:59 PM Pt rechecked, resting comfortably in bed at this time. Vitals wnl. Denies any complaints currently.Pending admission to neurology. Will continue to monitor in ED. 5:33 PM: Patient at this time has a bed assigned with neurology service. Patient to be transferred to their inpatient bed. Clinical Impression: 1. Hyponatremia 2. Seizure 3. Chronic hyponatremia Disposition: Admit to neurology By signing my name below, I, Shane Gregory, attest that this documentation has been prepared under the direction and in the presence of Dr. Vilchis. Signed: Laisha Lacy. I, Dr. Vilchis, personally performed the services described in this documentation. All medical record entries made by the scribe were at my direction and in my presence. I have reviewed the chart and agree that the record reflects my personal performance and is accurate and complete. * Franck Gao RN - 01/14/2019 12:09 PM CDT Patient is calm and cooperative, no new complains of shaking or seizures, sodium blood level specimen send for investigation. * Franck Gao RN - 01/14/2019 10:33 AM CDT Patient felt like shaking For 10-15 sec, now stable , informed to Dr calhoun. * Caio Elder MD - 01/14/2019 8:28 AM CDT Resident Attestation I have performed an independent history and physical examination and discussed the patient's management with the resident. I confirm the residents findings, assessment and plan of care except where revised on this note. Interval History: Patient presents stating that he is watching TV and suddenly began shaking and his typical seizure. Patient fell out of bed and hit his head on the dresser. Patient states that he is only having headache. Denies chest pain shortness of breath weakness or any postictal symptoms at present. Patient has extensive history of seizures difficulty control. Is followed by Neurology here. Recently had to be admitted for seizure control and medication adjustment as they were ineffectiveand causing hyponatremia. Past medical history as noted HPI: Onset- just prior to arrival Timing- unsure how long Location- not applicable Quality- seizure Severity- severe Context- see above Aassociated sxs- head injury Exacerbating- nothing Alleviating- the ROS: Unable to obtain No All symptoms reviewed and negative except as marked Constitutional- no change in activity Eyes- no vision changes Ent- no face or neck pain Cv- no chest pain, Resp- no shortness of breath Gi- no abdominal pain, nausea, vomiting or diarrhea Gu- no dysuria Ms- no extremity swelling, Skin- no rash Neuro- positive headache from hitting his head Psych- Hemat/lymph- no abnormal bruising Endo- Immun/allergy- Past Medical History: Diagnosis Date ??? CVA (cerebral vascular accident) ??? HTN (hypertension) ??? Seizure No past surgical history on file. Social History Tobacco Use ??? Smoking status: Current Every Day Smoker Packs/day: 1.00 Years: 15.00 Pack years: 15.00 ??? Smokeless tobacco: Never Used Substance Use Topics ??? Alcohol use: No Comment: last drink 2015 ??? Drug use: No Comment: occasional No Known Allergies Current Facility-Administered Medications Medication ??? 0.9% NaCl injection 3 mL And ??? 0.9% NaCl injection 1-10 mL ??? divalproex DR (DEPAKOTE) tablet 500 mg ??? heparin injection 5,000 Units ??? levETIRAcetam (KEPPRA) tablet 2,000 mg ??? sodium chloride tablet 1 g Current Outpatient Medications Medication Sig ??? acetaminophen (TYLENOL) 325 MG tablet ??? amLODIPine (NORVASC) 5 MG tablet Take 1 tablet by mouth once daily ??? aspirin (ASPIRIN) 81 MG chew tablet Take 1 tablet by mouth once daily (Patient not taking: Reported on 12/29/2018) ??? atorvastatin (LIPITOR) 20 MG tablet ??? clonazePAM (KLONOPIN) 0.5 MG tablet Take 1 tablet as needed after a seizure to prevent clustering, every 8 hours as needed. ??? Cyanocobalamin (B-12) 1000 MCG Take 1 mg by mouth once daily ??? divalproex DR (DEPAKOTE) 500 MG tablet Take 1 tablet by mouth 2 times daily ??? eslicarbazepine (APTIOM) 800 MG tablet Take 1 tablet by mouth once daily ??? folic acid (FOLVITE) 1 MG tablet Take 1 tablet by mouth once daily ??? ibuprofen (MOTRIN) 600 MG tablet ??? levETIRAcetam (KEPPRA) 1000 MG tablet Take 2 tablets by mouth 2 times daily ??? sodium chloride 1 GM tablet Take 1 tablet by mouth once daily ??? tamsulosin (FLOMAX) 0.4 MG capsule ??? thiamine (VITAMIN B-1) 100 MG tablet Take 1 tablet by mouth once daily Exam: Vitals: 01/14/19 0011 01/14/19 0017 01/14/19 0515 01/14/19 0739 BP: 148/82 148/82 138/84 Pulse: 86 89 71 62 Resp: Temp: 98.4 ??F (36.9 ??C) 97.8 ??F (36.6 ??C) SpO2: 100% 100% 100% Weight: 72.6 kg (160 lb) Height: 1.803 m (5' 11 ) Gen- no acute distress Eyes- normal conjunctiva Ent- no neck swelling, left occipital scalp hematoma Cv- heart without murmur, normal pulses bilateral radial Resp- lung clear to auscultation Abd- soft, nontender, normal bowel sounds Back- nontender Gu- Ms- no ext swelling Skin- Neuro- normal motor all 4 Psych- normal affect Lymph- MDM: DDx: Acute seizure, rule out head injury Plan: Labs, head CT, neurology consult ED Course: Labs Reviewed CBC W AUTO DIFFERENTIAL - Abnormal; Notable for the following components: Result Value RBC 4.15 (*) Hematocrit 37.9 (*) MCHC 36.1 (*) MPV 9.1 (*) All other components within normal limits COMPREHENSIVE METABOLIC PANEL - Abnormal; Notable for the following components: Sodium 126 (*) Chloride 95 (*) CO2 18 (*) Osmolality Calculated 260 (*) All other components within normal limits VALPROIC ACID LEVEL - Abnormal; Notable for the following components: Valproic Acid Total <2 (*) All other components within normal limits CARBAMAZEPINE LEVEL TOTAL - Abnormal; Notable for the following components: Carbamazepine 1.9 (*) All other components within normal limits URINALYSIS REFLEX TO MICROSCOPIC NO CULTURE - Abnormal; Notable for the following components: Ketone UA 1+ (*) All other components within normal limits Narrative: DRUG SCREEN TOX URINE PANEL - Normal Narrative: The Urine Toxicology Screening Panel does not screen for Propoxyphene, Meprobamate, Carisoprodol, Trazodone, zoov-pkp-tnjopyq medications and/or volatiles (Acetone, Isopropanol, Methanol or Ethylene Glycol). Ethanol, Salicylate, Acetaminophen, Tricyclic Antidepressants and several therapeutic drugsmay be individually assayed in serum or plasma specimen. Toxicology testing by the [facility] is an aid to medical diagnosisand treatment of patients. No documented chain of custody was maintained. Results are intended to be used for clinical purposes only. LACTIC ACID BLOOD - Normal MAGNESIUM BLOOD - Normal PHOSPHORUS BLOOD - Normal ALCOHOL ETHYL BLOOD SODIUM URINE RANDOM CREATININE URINE RANDOM LEVETIRACETAM LEVEL OSMOLALITY URINE Lab interpret: Hyponatremia CT HEAD WO CONTRAST (Results Pending) Rad interpret: Negative per Radiology ED COURSE: Case discussed with and patient seen by Neurology. They will admit patient to their service for medication adjustment and treatment of hyponatremia. pt counseled on findings and plan Clinical Impression: Acute hyponatremia Acute seizure Disposition: Emergency department boarding pending inpatient bed Consult: Yes neurology 6:00 a.m.-care to Dr. Van kiser boarding in the emergency department pending inpatient bed Please see resident note for further details Caio Elder MD * Franck Gao RN - 01/14/2019 8:01 AM CDT Patient is resting in bed , hemodynamically stable, states of pain in head in occipital region due to fall at home yesterday, informed to Dr calhoun. * Augie Calhoun MD - 01/14/2019 5:59 AM CDT ASSUMED CARE NOTE Patient signed out to me by Dr. Elder at 5:59 AM. Briefly, Bi Tabor is a 58 year old male is being evaluated for seizure. Pt recently changed his seizure medication. At this time the patient's condition is Stable. Thus far, studies reveal a sodium of 126 Pending bed availability Plan is admit to neurology Patient Vitals for the past 6 hrs: Temp Pulse Resp BP 01/14/19 1204 98.1 ??F (36.7 ??C) -- -- -- 01/14/19 1200 -- 71 16 132/73 01/14/19 1100 -- 71 15 139/76 01/14/19 1030 -- 61 15 152/91 01/14/19 1000 -- 64 14 127/72 01/14/19 0930 -- 72 13 -- 01/14/19 0900 -- 67 11 -- 01/14/19 0830 -- 74 14 -- 01/14/19 0800 -- 68 12 -- 01/14/19 0739 -- 62 -- -- ED Course: 8:58 AM - Neurology rechecked the pt. Their exam was unremarkable. 12:28 PM - Rechecked patient. Resting comfortably at this time. VSS. Patient signed out to Dr. Vilchis at 2:06 PM. At this time the patient's condition is Stable . Pending bed availability Disposition admit to neurology Clinical Impression: 1. Hyponatremia 2. Seizure 3. Chronic hyponatremia Disposition: Admit to neurology By signing my name below, I, Akbar Carlos, attest that this documentation has been prepared under thedirection and in the presence of Dr. Calhoun. Signed: Laisha Albarran. I, Dr. Calhoun, personally performed the services described in this documentation. All medical record entries made by the scribe were at my direction and in my presence. I have reviewed the chart and agree that the record reflects my personal performance and is accurate and complete. * Zulma Xie RN - 01/14/2019 3:53 AM CDT Patient states that he has to use the bathroom, refusing to use urinal. EDT took patient to bathroom, placed a hat in the toilet for urine collection, and was outside the bathroom door, then heard a bang. when entering the bathroom the patient was leaning against the bathroom wall. Patient states that he was trying to empty the hat.Patient escorted back to room. Patient A&OX4 and denies pain at this time, VSS. Dr. Epps and Dr. Patel notified, no new orders at this time. * Zulma Xie RN - 01/14/2019 3:04 AM CDT Patient resting in stretcher, NAD noted. Awaiting disposition * Everett Proctor MD - 01/14/2019 12:30 AM CDT Bi Tabor [id number] [facility] EMERGENCY DEPARTMENT History Chief Complaint Patient presents with ??? Seizure Pt BIBEMS for unwitnessed seizure tonight around 1hr ago. Pt states he fell out of bed and hit his posterior head on bedside dresser during attack. Hx seizures, HTN. Pt states he takes keppra and hasnot missed a dose HPI Bi Tabor is a 58 year old male with PMH of stroke and seizures refractory to treatment presenting to the ED after seizure. Patient was at home watching the nightly news when he began to shake in all extremities. Patient states he was alert for duration of seizure, estimated at five minutes long. Event was unwitnessed. Patient states he fell out of bed and hit posterior head during episode.Denies fever, recent illness, chest pain, shortness of breath, abdominal pain. Past Medical History: Diagnosis Date ??? CVA [...] file Gets together: Not on file Attends druze service: Not on file Active member of [...] ??? Not on file Review of Systems ROS Physical Exam BP 138/84 Pulse 71 Temp 97.8 ??F (36.6 ??C) (Oral) Resp 12 Ht 1.803 m (5' 11 ) Wt 72.6 kg(160 lb) SpO2 100% BMI 22.32 kg/m?? Physical Exam Medications Current Outpatient Medications Medication Sig Dispense Refill ??? acetaminophen (TYLENOL) 325 MG tablet ??? amLODIPine (NORVASC) 5 MG tablet Take 1 tablet by mouth once daily 30 tablet 0 ??? aspirin (ASPIRIN) 81 MG chew tablet Take 1 tablet by mouth once daily (Patient not taking: Reported on 12/29/2018) 30 tablet 0 ??? atorvastatin (LIPITOR) 20 [...] 2 times daily 60 tablet 11 ??? eslicarbazepine (APTIOM) 800 MG tablet Take 1 tablet by mouth once daily 30 tablet 11 ??? folic acid (FOLVITE) 1 MG tablet Take 1 tablet by mouth once daily 30 tablet 11 ??? ibuprofen (MOTRIN) 600 MG tablet ??? levETIRAcetam (KEPPRA) 1000 MG tablet Take 2 tablets by mouth 2 times daily 60 tablet 11 ??? sodium chloride 1 GM tablet Take 1 tablet by mouth once daily 30 tablet 2 ??? tamsulosin (FLOMAX) 0.4 MG capsule ??? thiamine (VITAMIN B-1) 100 MG tablet Take 1 tablet by mouth once daily 30 tablet 11 Procedures Procedures Lab/SPO2 Interpretation Hospital Encounter on 01/14/19 CBC W AUTO DIFFERENTIAL Result Value Ref Range WBC 5.1 3.5 - 10.5 10??3/uL RBC 4.15 (L) 4.30 - 5.70 10??6/uL Hemoglobin 13.7 13.5 - 17.5 g/dL Hematocrit 37.9 (L) 39.0 - 50.0 % MCV 91.3 81.0 - 97.0 fL MCH 33.0 28.0 - 34.0 pg MCHC 36.1 (H) 32.0 - 36.0 g/dL Platelet Count 218 150 - 400 10??3/uL RDW-SD 38.6 36.0 - 50.0 fL RDW-CV 11.5 11.2 - 14.8 % MPV 9.1 (L) 9.3 - 12.8 fL nRBC Absolute 0.00 0 10??3/uL nRBC Auto 0.0 0 /100 WBC Neutrophils % 52.3 35.0 - 70.0 % Lymphocytes % 35.5 19.7 - 55.1 % Monocytes % 6.1 3.0 - 15.0 % Eosinophils % 5.3 0.0 - 6.0 % Basophil % 0.4 0.0 - 1.5 % Neutrophils Absolute 2.7 1.6 - 7.0 10??3/uL Lymphocyte Absolute 1.8 0.8 - 2.9 10??3/uL Monocytes Absolute 0.31 0.14 - 0.66 10??3/uL Eosinophils Absolute 0.27 0.00 - 0.45 10??3/uL Basophils Absolute 0.02 0.00 - 0.06 10??3/uL Immature Granulocytes % 0.4 0.0 - 1.0 % COMPREHENSIVE METABOLIC PANEL Result Value Ref Range BUN 8 7 - 26 mg/dL Creatinine 0.7 0.6 - 1.2 mg/dL Sodium 126 (L) 136 - 145 mmol/L Potassium 4.5 3.5 - 4.5 mmol/L Chloride 95 (L) 98 - 107 mmol/L CO2 18 (L) 22 - 29 mmol/L Glucose 91 70 - 115 mg/dL Calcium 9.2 8.4 - 10.2 mg/dL Protein Total 6.6 6.0 - 8.3 g/dL Albumin 4.2 3.4 - 5.0 g/dL Bilirubin Total 0.5 0.2 - 1.2 mg/dL Alkaline Phosphatase 59 40 - 150 Units/L ALT 15 0 - 55 Units/L AST 22 5 - 34 Units/L Anion Gap 18 8 - 18 BUN/Creatinine Ratio 11 7 - 23 Osmolality Calculated 260 (L) 270 - 300 mOsm/kg Albumin/Globulin Ratio 1.8 1.1 - 2.3 eGFR >60 >60 mL/min/1.73 m2 ALCOHOL ETHYL BLOOD Result Value Ref Range Interpretation Ethanol None Detected None Detected mg/dL DRUG SCREEN TOX URINE PANEL Result Value Ref Range Amphetamines Screen Urine [...] Screen Urine Negative Negative: < 300 ng/mL VALPROIC ACID LEVEL Result Value Ref Range Valproic Acid Total <2 (L) 50 - 100 mcg/mL LACTIC ACID BLOOD Result Value Ref Range Lactic Acid-Stat 0.7 0.5 - 2.0 mmol/L CARBAMAZEPINE LEVEL TOTAL Result Value Ref Range Carbamazepine 1.9 (L) 4.0 - 12.0 mcg/mL MAGNESIUM BLOOD Result Value Ref Range Magnesium 1.6 1.6 - 2.6 mg/dL PHOSPHORUS BLOOD Result Value Ref Range Phosphorus 3.1 2.3 - 4.7 mg/dL SODIUM URINE RANDOM Result Value Ref Range Sodium Urine 57 Not Established mmol/L CREATININE URINE RANDOM Result Value Ref Range Creatinine Urine 35 Not Established mg/dL URINALYSIS REFLEX TO MICROSCOPIC NO CULTURE Result Value Ref Range Color UA Straw Straw, Yellow, Colorless Clarity UA Clear Clear, Slt Cloudy Specific [place] UA 1.006 1.005 - 1.030 pH UA 7.0 5.0 - 8.0 pH Protein UA Negative Negative mg/dL Glucose UA Negative Negative mg/dL Ketone UA 1+ (Abnormal) Negative mg/dL Bilirubin UA Negative Negative mg/dL Blood UA Negative Negative Nitrite UA Negative Negative Leukocyte Esterase Negative Negative Urobilinogen UA Negative Negative mg/dL RBC UA 0-2 None Seen, 0-2, 3-5 /HPF WBC UA 0-5 None Seen, 0-5 /HPF Squamous Epithelial Cells UA None Seen None Seen, 0-2 /HPF CT HEAD WO CONTRAST (Results Pending) Progress Notes ED Course Clinical Impressions as of Jan 15 648 Seizure Hyponatremia Medical Decision Making Clinical diagnosis - seizure Differential Seizure vs stroke vs pseudoseizure vs other Plan -Labs -Imaging -Symptom control -Reassess ED Course ?? Patient seen and evaluated, available studies reviewed ?? Initial workup and treatment plan discussed with patient and provided opportunity to ask questions ?? Patient is 58 year old male presenting with seizure, Hx seizures refractory to treatment, stroke ?? States full body seizure but alert during duration of seizure, fell from bed and hit posterior head ?? CT head ordered ?? CBC, CMP, lactic, valpoic, keppra, carbamazepine levels pending ?? Valproic low, carbamazepine low as expected as drug dc'd earlier this month ?? Sodium 126 ?? 2:24 AM - neurology to see patient in ED ?? Per neurology, hyponatremia side effect of patient's seizure medications ?? Patient to be admitted to neurology under Dr. Carney ?? Per neurology, restricting fluids and starting NaCl tabs ?? Patient amenable to plan for admission Care in ED transferred to day team, Drs. Moody and Van -Discussed with admitting service and patient/family and they have been given an opportunity to askquestions. They are agreeable to the plan. Orders Placed This Encounter ??? CT HEAD WO CONTRAST ??? LEVETIRACETAM LEVEL ??? CBC W AUTO DIFFERENTIAL ??? COMPREHENSIVE METABOLIC PANEL ??? ALCOHOL ETHYL BLOOD ??? DRUG SCREEN TOX URINE PANEL ??? VALPROIC ACID LEVEL ??? LACTIC ACID BLOOD ??? CARBAMAZEPINE LEVEL TOTAL ??? MAGNESIUM BLOOD ??? PHOSPHORUS BLOOD ??? SODIUM URINE RANDOM ??? CREATININE URINE RANDOM ??? URINALYSIS REFLEX TO MICROSCOPIC NO CULTURE ??? OSMOLALITY URINE ??? SODIUM BLOOD ??? 0.9% NaCl IV Bolus ??? 0.9% NaCl infusion ??? levETIRAcetam (KEPPRA) tablet 2,000 mg ??? divalproex DR (DEPAKOTE) tablet 500 mg ??? sodium chloride tablet 1 g ??? AND Linked Order Group ??? 0.9% NaCl injection 3 mL ??? 0.9% NaCl injection 1-10 mL ??? heparin injection 5,000 Units * Tasha Johnson RN - 01/14/2019 12:17 AM CDT Pt states last seizure was about a month ago * Juan Diego Ruano RN - 01/14/2019 12:11 AM CDT Bed: 12 Expected date: 01/14/19 Expected time: 12:02 AM Means of arrival: Ambulance Comments: Seizure documented in this encounter Plan of Treatment Upcoming Encounters Date Type Department Care Team (Late st Contact Info) Description 12/05/2024 1:00 PM CDT Office Visit [facility] - Neurology [address] [facility] [place] [id number] Sean Raymundo, DO [address] [place] [id number] documented as of this encounter Procedures Procedure Name Priority Date/Time Associated Diagnosis Comments SODIUM BLOOD AM Draw 01/15/2019 11:03 AM CDT Hyponatremia VALPROIC ACID LEVEL STAT 01/15/2019 1 1:03 AM CDT Seizure (HCC) VITAMIN D 25-HYDROXY AM Draw 01/15/2019 7:22 AM CDT Hyponatremia BASIC METABOLIC PANEL (CALCIUM TOTAL) AM Draw 01/15/2019 7:22 AM CDT Hyponatremia SODIUM BLOOD STAT 01/14/2019 11:57 AM CDT Hyponatremia SODIUM URINE RANDOM STAT 01/14/2019 6 :13 AM CDT Chronic hyponatremia URINE DRUG SCREEN IMMUNOASSAY STAT 01/14/2019 6:13 AM CDT OSMOLALITY URINE STAT 01/14/2019 6:13 AM CDT Seizure (HCC) Chronic hyponatremia CREATININE URINE RANDOM STAT 01/14/2019 6:13 AM CDT Chronic hyponatremia URINALYSIS REFLEX TO MICROSCOPIC NO CULTURE STAT 01/14/2019 6:12 AM CDT Seizure (HCC) Chronic hyponatremia PT EVAL AND TREAT Routine 01/14/2019 4:3 1 AM CDT COMPREHENSIVE METABOLIC PANEL STAT 01/14/2019 1:23 AM CDT PHOSPHORUS BLOOD STAT 01/14/2019 1:23 AM CDT Seizure (HCC) MAGNESIUM BLOOD STAT 01/14/2019 1:23 AM CDT Seizure (HCC) LACTIC ACID BLOOD STAT 01/14/2019 1:2 3 AM CDT ALCOHOL ETHYL BLOOD STAT 01/14/2019 1 :23 AM CDT VALPROIC ACID LEVEL STAT 01/14/2019 1 :23 AM CDT CARBAMAZEPINE LEVEL TOTAL STAT 01/14/2019 1:23 AM CDT LEVETIRACETAM LEVEL STAT 01/14/2019 1 :22 AM CDT CBC W AUTO DIFFERENTIAL STAT 01/14/2019 1:[address] HEAD WO CONTRAST STAT 01/14/2019 1 :18 AM CDT Seizure (HCC) documented in this encounter Results * VALPROIC ACID LEVEL (01/15/2019 11:03 AM CDT) Valproic Acid Total 66 50 - 100 mcg/mL 01/15/2019 12:34 PM CDT [facility] Blood BLOOD SPECIMEN / Unknown Lab Venipuncture / Unknown 01/15/2019 11:03 AM CDT 01/15/2019 11:48 AM CDT David Escalera MD LAB - CHEMISTRY [facility] [address] [phone] * (ABNORMAL) SODIUM BLOOD (01/15/2019 11:03 AM CDT) Sodium 132(L) 136 - 145 mmol/L 01/15/2019 12:22 PM CDT [facility] Blood BLOOD SPECIMEN / Unknown Lab Venipuncture / Unknown 01/15/2019 11:03 AM CDT 01/15/2019 11:48 AM CDT Germain Cardoza MD LAB - CHEMISTRY [facility] Performing Organization Address City/[facility]/ZIP Co de Phone Number [address] [phone] * (ABNORMAL) VITAMIN D 25-HYDROXY (01/15/2019 7:22 AM CDT) Vitamin D, 25 Hydroxy 6.7(L) See comment: ng/mL 01/15/2019 11:50 AM CDT [facility] Comment: The recommendations for 25-Hydroxy Vitamin D [...] / Unknown Lab Venipuncture / Unknown 01/15/2019 7:22 AM CDT 01/15/2019 7:41 AM CDT David Escalera MD LAB - CHEMISTRY [facility] Performing Organization Address [facility]/ZIP Co de Phone Number [address] [phone] * (ABNORMAL) BASIC METABOLIC PANEL (CALCIUM TOTAL) (01/15/2019 7:22 AM CDT) BUN 9 7 - 26 mg/dL 01/15/2019 8:43 AM [facility] [place] [facility] Creatinine 0.7 0.6 - 1.2 mg/dL 01/15/2019 8:43 AM [facility] [place] [facility] Sodium 134(L) 136 - 145 mmol/L 01/15/2019 8:43 AM [facility] [place] [facility] Comment:Confirmed by repeat analysis. Potassium 4.1 3.5 - 4.5 mmol/L 01/15/2019 8:43 AM [facility] [place] [facility] Chloride 101 98 - 107 mmol/L 01/15/2019 8:43 AM [facility] [place] [facility] CO2 23 22 - 29 mmol/L 01/15/2019 8:43 AM [facility] [place] [facility] Glucose 109 70 - 115 mg/dL 01/15/2019 8:43 AM [facility] [place] [facility] Calcium 9.9 8.4 - 10.2 mg/dL 01/15/2019 8:43 AM [facility] [place] [facility] Anion Gap 14 8 - 18 01/15/2019 8:43 AM [facility] [place] [facility] BUN/Creatinine Ratio 13 7 - 23 01/15/2019 8:43 AM [facility] [place] [facility] Osmolality Calculated 277 270 - 300 mOsm/kg 01/15/2019 8:43 AM [facility] [place] [facility] eGFR >60 >60 mL/min/1.7 3 m2 01/15/2019 8:43 AM [facility] [place] [facility] Blood BLOOD SPECIMEN / Unknown Lab Venipuncture / Unknown 01/15/2019 7:22 AM CDT 01/15/2019 7:41 AM [facility] David Escalera MD LAB - CHEMISTRY [facility] Organization Address City/State/ZIP Co de Phone Number [address] [phone] * (ABNORMAL) SODIUM BLOOD (01/14/2019 11:57 AM T) Sodium 127(L) 136 - 145 mmol/L 01/14/2019 12:10 PM [facility] [place] [facility] Blood BLOOD SPECIMEN / Unknown Venipuncture / Unknown 01/14/2019 11:57 AM CDT 01/14/2019 11:57 AM CDT Germain Cardoza MD LAB - CHEMISTRY [facility] Performing Organization Address [facility] Co de Phone Number [address] [phone] * OSMOLALITY URINE (01/14/2019 6:13 AM CDT) Osmolality Urine 236 50-1,200 mOsm/kg 01/14/2019 5:06 PM CDT [facility] Urine URINE SPECIMEN OBTAINED BY CLEAN CATCH PROCEDURE / Unknown Collection / Unknown 01/14/2019 6:13 AM CDT 01/14/2019 6:13 AM CDT Germain Cardoza MD LAB - URINE CHEMISTR Y ORDERABLES Performing Organization Address [facility] de Phone Number [address] [phone] * CREATININE URINE RANDOM (01/14/2019 6:13 AM CDT) Creatinine Urine 35 Not Established mg/dL 01/14/2019 6:37 AM CDT [facility] Urine URINE SPECIMEN OBTAINED BY CLEAN CATCH PROCEDURE / Unknown Collection / Unknown 01/14/2019 6:13 AM CDT 01/14/2019 6:13 AM CDT Germain Cardoza MD LAB - URINE CHEMISTR Y ORDERABLES Performing Organization Address [facility] Co de Phone Number [address] [phone] * SODIUM URINE RANDOM (01/14/2019 6:13 AM CDT) Sodium Urine 57 Not Established mmol/L 01/14/2019 6:35 AM CDT [facility] Urine URINE SPECIMEN OBTAINED BY CLEAN CATCH PROCEDURE / Unknown Collection / Unknown 01/14/2019 6:13 AM CDT 01/14/2019 6:13 AM CDT Germain Cardoza MD LAB - URINE CHEMISTR Y ORDERABLES [facility] [address] [place] [address] * DRUG SCREEN TOX URINE PANEL (01/14/2019 6:13 AM CDT) [facility] Amphetamines Screen Urine Negative Negative: < 1000 ng/mL 01/14/2019 6:32 AM CDT [facility] Barbiturates Screen Urine Negative Negative: < 200 ng/mL 01/14/2019 6:32 AM CDT [facility] Benzodiazepine Screen Urine Negative Negative: < 200 ng/mL 01/14/2019 6:32 AM CDT [facility] Opiates Urine Negative Negative: < 300 ng/mL 01/14/2019 6:32 AM CDT [facility] Cocaine Metabolites Urine Negative Negative: < 300 ng/mL 01/14/2019 6:32 AM CDT [facility] Phencyclidine Screen Urine Negative Negative: < 25 ng/ml 01/14/2019 6:32 AM CDT [facility] Cannabinoids Screen Urine Negative Negative: <50 ng/mL 01/14/2019 6:32 AM T [facility] Methadone Screen Urine Negative Negative: < 300 ng/mL 01/14/2019 6:32 AM T [facility] Urine URINE / Unknown Collection / Unknown 01/14/2019 6:13 AM CDT 01/14/2019 6:13 AM CDT Narrative [facility] - 01/14/2019 6:32 AM CDT The Urine Toxicology Screening Panel does not screen for Propoxyphene, Meprobamate, Carisoprodol, Trazodone, rvsx-afh-ldsmkep medications and/or volatiles (Acetone, Isopropanol, Methanol or Ethylene Glycol). Ethanol, Salicylate, Acetaminophen, Tricyclic Antidepressants and several therapeutic drugs may be individually assayed in serum or plasma specimen. Toxicology testing by the [facility] is an aid to medical diagnosis and treatment of patients. No documented chain of custody was maintained. Results are intended to be used for clinical purposes only. ? Everett Proctor MD LAB - URINE CHEMISTR Y ORDERABLES [facility] [address] [phone] * (ABNORMAL) URINALYSIS REFLEX TO MICROSCOPIC NO CULTURE (01/14/2019 6:12 AM CDT) Color UA Straw Straw, Yellow, Colorless 01/14/2019 6:27 AM [facility] [place] [facility] Clarity UA Clear Clear, Slt Cloudy 01/14/2019 6:27 AM [facility] [place] Specific [place] UA 1.006 1.005 - 1.030 01/14/2019 6:27 AM [facility] [place] pH UA 7.0 5.0 - 8.0 pH 01/14/2019 6:27 AM [facility] [place] Protein UA Negative Negative mg/dL 01/14/2019 6:27 AM [facility] [place] Glucose UA Negative Negative mg/dL 01/14/2019 6:27 AM [facility] Ketone UA 1+(A) Negative mg/dL 01/14/2019 6:27 AM [facility] Bilirubin UA Negative Negative mg/dL 01/14/2019 6:27 AM [facility] Blood UA Negative Negative 01/14/2019 6:27 AM [facility] Nitrite UA Negative Negative 01/14/2019 6:27 AM [facility] Leukocyte Esterase Negative Negative 01/14/2019 6:27 AM [facility] Urobilinogen UA Negative Negative mg/dL 01/14/2019 6:27 AM [facility] RBC UA 0-2 None Seen, 0-2, 3-5 /HPF 01/14/2019 6:27 AM CDT [facility] WBC UA 0-5 None Seen, 0-5 /HPF 01/14/2019 6:27 AM CDT [facility] Squamous Epithelial Cells UA None Seen None Seen, 0-2 /HPF 01/14/2019 6:27 AM CDT [facility] Urine URINE SPECIMEN OBTAINED BY CLEAN CATCH PROCEDURE / Unknown Collection / Unknown 01/14/2019 6:12 AM CDT 01/14/2019 6:12 AM CDT Narrative [facility] - 01/14/2019 6:27 AM CDT Germain Cardoza MD LAB - URINALYSIS ORD ERABLES Performing Organization Address [facility] Co de Phone Number [address] [phone] * PHOSPHORUS BLOOD (01/14/2019 1:23 AM CDT) Phosphorus 3.1 2.3 - 4.7 mg/dL 01/14/2019 4:53 AM CDT [facility] Blood BLOOD SPECIMEN / Unknown Venipuncture / Unknown 01/14/2019 1:23 AM CDT 01/14/2019 4:39 AM CDT Germain Cardoza MD LAB - CHEMISTRY [facility]DByron [facility] Performing Organization Address [facility]/ZIP Co de Phone Number [address] [phone] * MAGNESIUM BLOOD (01/14/2019 1:23 AM CDT) Magnesium 1.6 1.6 - 2.6 mg/dL 01/14/2019 4:53 AM CDT [facility] Blood BLOOD SPECIMEN / Unknown Venipuncture / Unknown 01/14/2019 1:23 AM CDT 01/14/2019 4:39 AM CDT Germain Cardoza MD LAB - CHEMISTRY ORDByron [facility] [address] [phone] * (ABNORMAL) CARBAMAZEPINE LEVEL TOTAL (01/14/2019 1:23 AM CDT) Carbamazepine, trough 1.9(L) 4.0 - 12.0 mcg/mL 01/14/2019 1:45 AM CDT [facility] Blood BLOOD SPECIMEN / Unknown Venipuncture / Unknown 01/14/2019 1:23 AM CDT 01/14/2019 1:23 AM CDT Everett Proctor MD LAB - CHEMISTRY ORDByron MEDEROS Performing Organization Address [facility] Co de Phone Number [address] [phone] * LACTIC ACID BLOOD (01/14/2019 1:23 AM CDT) [facility] Lactic Acid-Stat 0.7 0.5 - 2.0 mmol/L 01/14/2019 1:39 AM CDT [facility] Blood BLOOD SPECIMEN / Unknown Venipuncture / Unknown 01/14/2019 1:23 AM CDT 01/14/2019 1:23 AM CDT Everett Proctor MD LAB - CHEMISTRY MARSHAL MEDEROS Performing Organization Address [facility] Co de Phone Number [address] [phone] * (ABNORMAL) VALPROIC ACID LEVEL (01/14/2019 1:23 AM CDT) Valproic Acid Total <2(L) 50 - 100 mcg/mL 01/14/2019 1:51 AM CDT [facility] Blood BLOOD SPECIMEN / Unknown Venipuncture / Unknown 01/14/2019 1:23 AM CDT 01/14/2019 1:23 AM CDT Everett Proctor MD LAB - CHEMISTRY MARSHAL MEDEROS [address] [phone] * ALCOHOL ETHYL BLOOD (01/14/2019 1:23 AM CDT) [facility] Interpretation Ethanol None Detected None Detected mg/dL 01/14/2019 1:45 AM [facility] Comment: Ethanol levels less than 10 mg/dL are resulted as None detected . Blood BLOOD SPECIMEN / Unknown Venipuncture / Unknown 01/14/2019 1:23 AM CDT 01/14/2019 1:23 AM CDT Everett Proctor MD LAB - CHEMISTRY MARSHAL MEDEROS [facility] Organization Address City/[facility]/ZIP Co de Phone Number [address] [phone] * (ABNORMAL) COMPREHENSIVE METABOLIC PANEL (01/14/2019 1:23 AM CDT) [facility] BUN 8 7 - 26 mg/dL 01/14/2019 1:45 AM [facility] Creatinine 0.7 0.6 - 1.2 mg/dL 01/14/2019 1:45 AM [facility] Sodium 126(L) 136 - 145 mmol/L 01/14/2019 1:45 AM [facility] Potassium 4.5 3.5 - 4.5 mmol/L 01/14/2019 1:45 AM [facility] Chloride 95(L) 98 - 107 mmol/L 01/14/2019 1:45 AM [facility] CO2 18(L) 22 - 29 mmol/L 01/14/2019 1:45 AM [facility] Glucose 91 70 - 115 mg/dL 01/14/2019 1:45 AM [facility] Calcium 9.2 8.4 - 10.2 mg/dL 01/14/2019 1:45 AM [facility] Protein Total 6.6 6.0 - 8.3 g/dL 01/14/2019 1:45 AM [facility] Albumin 4.2 3.4 - 5.0 g/dL 01/14/2019 1:45 AM [facility] Bilirubin Total 0.5 0.2 - 1.2 mg/dL 01/14/2019 1:45 AM [facility] Alkaline Phosphatase 59 40 - 150 Units/L 01/14/2019 1:45 AM [facility] ALT 15 0 - 55 Units/L 01/14/2019 1:45 AM [facility] AST 22 5 - 34 Units/L 01/14/2019 1:45 AM [facility] Anion Gap 18 8 - 18 01/14/2019 1:45 AM [facility] BUN/Creatinine Ratio 11 7 - 23 01/14/2019 1:45 AM [facility] Osmolality Calculated 260(L) 270 - 300 mOsm/kg 01/14/2019 1:45 AM [facility] Albumin/Globulin Ratio 1.8 1.1 - 2.3 01/14/2019 1:45 AM [facility] eGFR >60 >60 mL/min/1.7 3 m2 01/14/2019 1:45 AM [facility] Blood BLOOD SPECIMEN / Unknown Venipuncture / Unknown 01/14/2019 1:23 AM CDT 01/14/2019 1:23 AM T Everett Proctor MD LAB - CHEMISTRY MARSHAL MEDEROS [facility] Organization Address City/State/[facility] Co de Phone Number [address] [phone] * (ABNORMAL) CBC W AUTO DIFFERENTIAL (01/14/2019 1:22 AM CDT) WBC 5.1 3.5 - 10.5 10? 3 /uL 01/14/2019 1:26 AM [facility] RBC 4.15(L) 4.30 - 5.70 10? 6 /uL 01/14/2019 1:26 AM [facility] Hemoglobin 13.7 13.5 - 17.5 g/dL 01/14/2019 1:26 AM [facility] Hematocrit 37.9(L) 39.0 - 50.0 % 01/14/2019 1:26 AM [facility] MCV 91.3 81.0 - 97.0 fL 01/14/2019 1:26 AM [facility] MCH 33.0 28.0 - 34.0 pg 01/14/2019 1:26 AM [facility] MCHC 36.1(H) 32.0 - 36.0 g/dL 01/14/2019 1:26 AM [facility] Platelet Count 218 150 - 400 10? 3 /uL 01/14/2019 1:26 AM [facility] RDW-SD 38.6 36.0 - 50.0 fL 01/14/2019 1:26 AM [facility] RDW-CV 11.5 11.2 - 14.8 % 01/14/2019 1:26 AM [facility] MPV 9.1(L) 9.3 - 12.8 fL 01/14/2019 1:26 AM [facility] nRBC Absolute 0.00 0 10? 3 /uL 01/14/2019 1:26 AM [facility] nRBC Auto 0.0 0 /100 WBC 01/14/2019 1:26 AM [facility] Neutrophils % 52.3 35.0 - 70.0 % 01/14/2019 1:26 AM [facility] Lymphocytes % 35.5 19.7 - 55.1 % 01/14/2019 1:26 AM [facility] Monocytes % 6.1 3.0 - 15.0 % 01/14/2019 1:26 AM [facility] Eosinophils % 5.3 0.0 - 6.0 % 01/14/2019 1:26 AM [facility] Basophil % 0.4 0.0 - 1.5 % 01/14/2019 1:26 AM [facility] Neutrophils Absolute 2.7 1.6 - 7.0 10? 3 /uL 01/14/2019 1:26 AM [facility] Lymphocyte Absolute 1.8 0.8 - 2.9 10? 3 /uL 01/14/2019 1:26 AM [facility] Monocytes Absolute 0.31 0.14 - 0.66 10? 3 /uL 01/14/2019 1:26 AM [facility] Eosinophils Absolute 0.27 0.00 - 0.45 10? 3 /uL 01/14/2019 1:26 AM CDT [facility] Basophils Absolute 0.02 0.00 - 0.06 10? 3 /uL 01/14/2019 1:26 AM CDT [facility] Immature Granulocytes % 0.4 0.0 - 1.0 % 01/14/2019 1:26 AM CDT [facility] Blood BLOOD SPECIMEN / Unknown Venipuncture / Unknown 01/14/2019 1:22 AM CDT 01/14/2019 1:23 AM CDT Everett Proctor MD LAB - HEMATOLOGY ORD ERABLES [address] [phone] * LEVETIRACETAM LEVEL (01/14/2019 1:22 AM CDT) Levetiracetam 30.5 10.0 - 40.0 ug/mL 01/17/2019 1:08 PM CDT [facility] ([facility]) Comment: This test was developed and its performance characteristics determined by [facility]. It has not been cleared or approved by the Food and Drug Administration. Blood BLOOD SPECIMEN / Unknown Venipuncture / Unknown 01/14/2019 1:22 AM CDT 01/14/2019 1:22 AM CDT Narrative [facility] ([facility]) - 01/17/2019 1:08 PM CDT Performed at: ??01 - [facility] ??[id number] [employer] Estimator: Terence Ramos MD, Phone: ??[phone] Everett Proctor MD LAB - THERAPEUTIC DR DIAZ MONITORING ORDERABLES [facility] ([facility]) [address] [place] [address] * CT HEAD WO CONTRAST (01/14/2019 1:18 AM CDT) Anatomical Region Laterality Modality Head Computed Tomogra phy 01/14/2019 2:05 AM CDT Impressions 01/14/2019 1:12 PM CDT IMPRESSION: 1.No acute intracranial hemorrhage, midline shift, or significant mass effect 2.Generalized volume loss, chronic infarcts and nonspecific white matter changes, likely vascular related. 3.No significant change from prior. This report was approved ??by Rosa Gupta ?? on 01/14/2019 1:09 PM . I, Dr. WOJCIECH NEIL have personally reviewed and interpreted this examination/study. This report was electronically signed by WOJCIECH NEIL ??on 01/14/2019 1:12 PM . Narrative 01/14/2019 1:12 PM CDT EXAMINATION: Computed tomography (CT) of the head without contrast HISTORY: Head trauma COMPARISON: ??CT head from 12/27/2018 TECHNIQUE: CT of the head was performed without contrast according to standard protocol. FINDINGS: No acute intra- or extra-axial fluid [...] papyracea defect/fracture, the orbits appear normal. There is mild paranasal sinus disease. Cerumen is noted in the right external auditory canal. The mastoid air cells are clear. There is a unchanged hypodense lesion in the left occipital scalp, likely a sebaceous cyst. Procedure Note Wojciech Neil MD - 01/14/2019 EXAMINATION: Computed tomography (CT) of the head without contrast HISTORY: Head trauma COMPARISON: CT head from 12/27/2018 TECHNIQUE: CT of the head was performed without contrast according to standard protocol. FINDINGS: No acute intra- or extra-axial fluid [...] papyracea defect/fracture, the orbits appear normal. There is mild paranasal sinus disease. Cerumen is notedin the right external auditory canal. The mastoid air cells are clear.There is a unchanged hypodense lesion in the left occipital scalp, likely a sebaceous cyst. IMPRESSION: 1.No acute intracranial hemorrhage, midline shift, or significant mass effect 2.Generalized volume loss, chronic infarcts and nonspecific white matter changes, likely vascular related. 3.No significant change from prior. This report was approved by Rosa Gupta on 01/14/2019 1:09 PM . I, Dr. WOJCIECH NEIL have personally reviewed and interpreted this examination/study. This report was electronically signed by WOJCIECH NEIL on01/14/2019 1:12 PM . Everett Proctor MD CT ORDERABLES documented in this encounter Visit Diagnoses Diagnosis Seizure (HCC)- Primary Other convulsions Seizure (HCC) Other convulsions Hyponatremia Hyposmolality and/or hyponatremia Chronic hyponatremia Hyposmolality and/or hyponatremia Nonintractable epilepsy without status epilepticus, unspecified epilepsy type (HCC) Headache, unspecified headache type Fall from bed, initial encounter Hyponatremia Hyposmolality and/or hyponatremia documented in this encounter Administered Medications Inactive Administered Medications - up to 3 most recent administrations Medication Order MAR Action Action Date Dose Rate Site 0.9% NaCl infusion at 100 mL/hr, Intravenous, NOW, 1 dose, On 01/14/19 at 0400 $ New Bag/Syringe 01/14/2019 4:19 AM CDT 100 mL/hr 0.9% NaCl infusion at 75 mL/hr, Intravenous, CONTINUOUS, Starting on Tue01/15/19 at 0830, Until Tue01/15/19 at 2017 $ New Bag/Syringe 01/15/2019 10:42 AM CDT 75 mL/hr 0.9% NaCl injection 1-10 mL 1-10 mL, Intracatheter, PRN, Other, peripheral line flush, Starting on Tue01/14/19 at 0425, Until Tue01/15/19 at 2017, Flush peripheral IV catheter with 1-10 mL of normal saline before and after medications and prn to clear blood from the line or to verify patency. $ Given 01/15/2019 8:02 AM CDT 10 mL 0.9% NaCl injection 3 mL 3 mL, Intracatheter, EVERY 8 HOURS, 1095 doses, First dose on 01/14/19 at 0600, Last dose on 01/13/20 at 2200, Flush peripheral IV catheter with 3 mL of normal saline every 8 hours. $ Given 01/15/2019 6:28 AM CDT 3 mL $ Given 01/14/2019 8:15 PM CDT 3 mL 0.9% NaCl IV Bolus 1,000 mL, at 3,000 mL/hr, Administer over 20 Minutes, NOW, 1 dose, On 01/14/19 at 0400 $ New Bag/Syringe 01/14/2019 4:20 AM CDT 1,000 mL 3000 mL/hr acetaminophen (TYLENOL) tablet 650 mg 650 mg, Oral, EVERY 4 HOURS PRN, Mild Pain, Headache, Starting on Tue01/15/19 at 0801, Until Tue01/15/19 at 2017 $ Given 01/15/2019 1:27 PM CDT 650 mg amLODIPine (NORVASC) tablet 5 mg 5 mg, Oral, DAILY, 365 doses, First dose on 01/14/19 at 1215, Last dose on 01/13/20 at 0900 $ Given 01/15/2019 8:03 AM CDT 5 mg $ Given 01/14/2019 12:06 PM CDT 5 mg aspirin chew tablet 81 mg 81 mg, Oral, DAILY, 365 doses, First dose on 01/14/19 at 1215, Last dose on 01/13/20 at 0900 $ Given 01/15/2019 8:03 AM CDT 81 mg $ Given 01/14/2019 12:06 PM CDT 81 mg atorvastatin (LIPITOR) tablet 20 mg 20 mg, Oral, AT BEDTIME, 365 doses, First dose on 01/14/19 at 2100, Last dose on 01/13/20 at 2100 $ Given 01/14/2019 8:13 PM CDT [address] (DEPAKOTE) tablet 500 mg 500 mg, Oral, 2 TIMES DAILY, First dose (after last modification) on 01/14/19 at 2000, Until Discontinued, Do not crush, chew, or cut in half. $ Given 01/15/2019 8:03 AM CDT 500 mg $ Given 01/14/2019 8:14 PM CDT 500 mg folic acid (FOLVITE) tablet 1 mg 1 mg, Oral, DAILY, 365 doses, First dose on 01/14/19 at 1215, Last dose on 01/13/20 at 0900 $ Given 01/15/2019 8:03 AM CDT 1 mg $ Given 01/14/2019 12:06 PM CDT 1 mg heparin injection 5,000 Units 5,000 Units, Subcutaneous, EVERY 8 HOURS, 1095 doses, First dose on 01/14/19 at 0600, Last dose on 01/13/20 at 2200 $ Given 01/15/2019 2:04 PM CDT 5,000 Units Abd Right Lower Quadrant $ Given 01/15/2019 6:28 AM CDT 5,000 Units A bd Left Lower Quadrant $ Given 01/14/2019 8:13 PM CDT 5,000 Units A bd Left Lower Quadrant levETIRAcetam (KEPPRA) tablet 2,000 mg 2,000 mg, Oral, 2 TIMES DAILY, First dose on 01/14/19 at 0900, Until Discontinued, Do not crush or chew because of TASTE only. $ Given 01/15/2019 8:02 AM CDT 2,000 mg $ Given 01/14/2019 8:14 PM CDT 2,000 mg $ Given 01/14/2019 8:49 AM CDT 2,000 mg sodium chloride tablet 1 g 1 g, Oral, 2 TIMES DAILY WITH MEALS, First dose on 01/14/19 at 0800, Until Discontinued $ Given 01/15/2019 8:02 AM CDT 1 g $ Given 01/14/2019 5:47 PM CDT 1 g $ Given 01/14/2019 7:48 AM CDT 1 g tamsulosin (FLOMAX) capsule 0.4 mg 0.4 mg, Oral, DAILY, 365 doses, First dose on 01/14/19 at 1215, Last dose on 01/13/20 at 0900, At the same time every day after a meal. Do not crush, chew $ Given 01/15/2019 8:02 AM CDT 0.4 mg $ Given 01/14/2019 12:06 PM CDT 0.4 mg valproate (DEPACON) 1,500 mg in 0.9% NaCl 65 mL IVPB 1,500 mg, at 130 mL/hr, Intravenous, ONCE, 1 dose, On 01/14/19 at 0745 $ New Bag/Syringe 01/14/2019 7:55 AM CDT 1,500 mg 130 mL/hr documented in this encounter Active and Recently Administered Medications Times are shown in CDT. Scheduled Medication Order 01/13/2019 01/14/2019 01/15/2019 0.9% NaCl infusion (COMPLETED) at 100 mL/hr, Intravenous, NOW, 1 dose, On 01/14/19 at 0400 0419 ($ New Bag/Syringe - Provider: Zulma Xie, RN)0513 (Stopped - Provider: Zulma Xie, RN) 0.9% NaCl injection 3 mL(Linked Group 1) 3 mL, Intracatheter, EVERY 8 HOURS, 1095 doses, First dose on 01/14/19 at 0600, Last dose on 01/13/20 at 2200, Flush peripheral IV catheter with 3 mL of normal saline every 8 hours. 2014 ($ Given - Provider: Sarah Jordan RN) 0628 ($ Given - Provider: Sarah Jordan RN)0902 (Not Administered - Provider: Saloni King RN - Reason: See Comments - Comment: not administered from previous shift)0903 (Not Administered - Provider: Saloni King RN - Reason: See Comments - Comment: from previous shift)1504 (Not Administered - Provider: Saloni King RN - Reason: IV Currently Infusing) 0.9% NaCl IV Bolus (COMPLETED) 1,000 mL, at 3,000 mL/hr, Administer over 20 Minutes, NOW, 1 dose, On 01/14/19 at 0400 0420 ($ New Bag/Syringe - Provider: Zulma Xie, RN)0513 (Stopped - Provider: Zulma Xie, RN) amLODIPine (NORVASC) tablet 5 mg 5 mg, Oral, DAILY, 365 doses, First dose on 01/14/19 at 1215, Last dose on 01/13/20 at 0900 1206 ($ Given - Provider: Franck Gao RN) 0803 ($ Given - Provider: Aidee Archibald RN) aspirin chew tablet 81 mg 81 mg, Oral, DAILY, 365 doses, First dose on 01/14/19 at 1215, Last dose on 01/13/20 at 0900 1206 ($ Given - Provider: Franck Gao RN) 0803 ($ Given - Provider: Aidee Archibald RN) atorvastatin (LIPITOR) tablet 20 mg 20 mg, Oral, AT BEDTIME, 365 doses, First dose on 01/14/19 at 2100, Last dose on 01/13/20 at 2100 2012 ($ Given - Provider: Sarah Jordan RN) divalproex DR (DEPAKOTE) tablet 500 mg 500 mg, Oral, 2 TIMES DAILY, First dose (after last modification) on 01/14/19 at 2000, Until Discontinued, Do not crush, chew, or cut in half. 2013 ($ Given - Provider: Sarah Jordan RN) 0803 ($ Given - Provider: Aidee Archibald RN) folic acid (FOLVITE) tablet 1 mg 1 mg, Oral, DAILY, 365 doses, First dose on 01/14/19 at 1215, Last dose on 01/13/20 at 0900 1206 ($ Given - Provider: Franck Gao RN) 0803 ($ Given - Provider: Aidee Archibald RN) heparin injection 5,000 Units 5,000 Units, Subcutaneous, EVERY 8 HOURS, 1095 doses, First dose on 01/14/19 at 0600, Last dose on 01/13/20 at 2200 0610 (Not Administered - Provider: Zulma Xie RN - Reason: Refused-Patient)1424 ($ Given - Provider: Franck Gao RN)2012 ($ Given - Provider: Sarah Jordan RN) 0628 ($ Given - Provider: Sarah Jordan RN)1404 ($ Given - Provider: Aidee Archibald RN) levETIRAcetam (KEPPRA) tablet 2,000 mg 2,000 mg, Oral, 2 TIMES DAILY, First dose on 01/14/19 at 0900, Until Discontinued, Do not crush or chew because of TASTE only. 0849 ($ Given - Provider: Franck Gao RN)2013 ($ Given - Provider: Sarah Jordan RN) 0802 ($ Given - Provider: Aidee Archibald, ALFRED) sodium chloride tablet 1 g 1 g, Oral, 2 TIMES DAILY WITH MEALS, First dose on 01/14/19 at 0800, Until Discontinued 0748 ($ Given - Provider: Franck Gao RN)1747 ($ Given - Provider: Franck Gao RN) 0802 ($ Given - Provider: Aidee Archibald, ALFRED)1800 (Due) tamsulosin (FLOMAX) capsule 0.4 mg 0.4 mg, Oral, DAILY, 365 doses, First dose on 01/14/19 at 1215, Last dose on 01/13/20 at 0900, At the same time every day after a meal. Do not crush, chew 1206 ($ Given - Provider: Franck Gao RN) 0802 ($ Given - Provider: Aidee Archibald, ALFRED) valproate (DEPACON) 1,500 mg in 0.9% NaCl 65 mL IVPB (COMPLETED) 1,500 mg, at 130 mL/hr, Intravenous, ONCE, 1 dose, On 01/14/19 at 0745 0755 ($ New Bag/Syringe - Provider: Franck Gao RN)0825 (Stopped - Provider: Franck Gao RN) Continuous Medication Order 01/13/2019 01/14/2019 01/15/2019 0.9% NaCl infusion at 75 mL/hr, Intravenous, CONTINUOUS, Starting on Tue01/15/19 at 0830, Until Tue01/15/19 at 2017 1042 ($ New Bag/Syri nge - Provider: Aidee Archibald, ALFRED) PRN Medication Order 01/13/2019 01/14/2019 01/15/2019 0.9% NaCl injection 1-10 mL(Linked Group 1) 1-10 mL, Intracatheter, PRN, Other, peripheral line flush, Starting on 01/14/19 at 0425, Until Tue01/15/19 at 2017, Flush peripheral IV catheter with 1-10 mL of normal saline before and after medications and prn to clear blood from the line or to verify patency. 0802 ($ Given - Prov ider: Aidee Archibald RN) acetaminophen (TYLENOL) tablet 650 mg 650 mg, Oral, EVERY 4 HOURS PRN, Mild Pain, Headache, Starting on Tue01/15/19 at 0801, Until Tue01/15/19 at 2017 1327 ($ Given - Prov ider: Aidee Archibald RN) Linked Groups Order Group 1: SALINE LOCK, INSERT AND MAINTAIN (CANCELED) Routine, CONTINUOUS, Starting on Tue01/14/19 at 0430, Until Specified, New collection And 0.9% NaCl injection 3 mLJump to med 3 mL, Intracatheter, EVERY 8 HOURS, 1095 doses, First dose on Tue01/14/19 at 0600, Last dose on Tue01/13/20 at 2200, Flush peripheral IV catheter with 3 mL of normal saline every 8 hours. And 0.9% NaCl injection 1-10 mLJump to med 1-10 mL, Intracatheter, PRN, Other, peripheral line flush, Starting on Tue01/14/19 at 0425, Until Tue01/15/19 at 2017, Flush peripheral IV catheter with 1-10 mL of normal saline before and after medications and prn to clear blood from the line or to verify patency. documented in this encounter Care Teams Hydroelectric Operator Relationship Specialty Start Date End Date Misael Maradiaag DO PCP - General 10/03/17 09/15/20 Elizabeth Sullivan, ALFRED Chief Design Branch 10/14/17 documented as of this encounter
--- OUTSIDE RECORDS SUMMARY | 2024-06-08 05:44 | XMS_ITS | Encounter Summary ---
Author Organization [facility] Health Address [address] [facility] [place] [address] Care Team Providers Care Engineer Station Mainline Name Role Phone Misael Maradiaga DO Primary Care Provider Elizabeth Sullivan RN Unavailable [phone] Reason for Referral * Radiology Services (Routine) - Closed Specialty Diagnoses / Procedures Referred By Contac t Referred To Contact MRI Diagnoses Gait instability Neck pain Osteoarthritis of cervical spine with myelopathy Procedures MRI CERVICAL SPINE WO CONTRAST Ck Feliciano MD [facility] [place] [address] [facility] Mri [address] [place] [address] Referral ID Status Reason Start Date Expiration Date Visits Re quested Visits Authorized [id number] Closed 01/17/2018 07/16/2018 2 2 Encounter Details Date Type Department Care Team (Late st Contact Info) Description 01/09/2018 2:00 PM CDT Office Visit [facility] Neurology [address] [place] [address] Ck Feliciano MD [facility]5 [facility] [address] [place] [address] Epilepsy with seizures of localized onset (HCC) (Primary Dx); Vitamin B12 deficiency; Folate deficiency; Thiamine deficiency; Hypertension, unspecified type; Gait instability; Neck pain; Osteoarthritis of cervical spine with myelopathy Social History Tobacco Use Types Packs/Day Years Used Date Smoking Tobacco: Every Day Cigarettes 0.3 15 Smokeless Tobacco: Never Alcohol Use Standard Drinks/Week Comments No 0 (1 standard drink = 0.6 oz pur e alcohol) Sex and Gender Information Value Date Recorded Sex Assigned at Not on file Gender Identity Not on file Sexual Orientation Not on file documented as of this encounter Last Filed Vital Signs Vital Sign Reading Time Taken Comments Blood Pressure 140/86 01/09/2018 1:34 PM CDT Pulse 68 01/09/2018 1:34 PM CDT Temperature - - Respiratory Rate - - Oxygen Saturation 97% 01/09/2018 1:34 PM CDT Inhaled Oxygen Concentration - - Weight 62.5 kg (137 lb 12.8 oz) 01/09/2018 1:34 PM CDT Height 180.3 cm (5' 11 ) 01/09/2018 1:34 PM CDT Body Mass Index 19.22 01/09/2018 1:34 PM CDT documented in this encounter Functional [...] Progress Notes * Ck Feliciano MD - 01/09/2018 1:45 PM CDT Epilepsy Clinic Note PCP Misael Maradiaga Date of Encounter: 01/09/2018 Chief Complaint: Seizures Gait difficulty AGE OF ONSET 50-year-old SEMIOLOGY - Aura Tingling sensation over the right side - Ictus Convulsions, tongue bites - Post-ictus Confusion SEIZURE CONTROL Seizure frequency Initially frequent, then 1 event in 1 year Seizure free interval 2 month Date of last seizure May 2017 Action Plan - MEDICATION Name Dosage Frequency AED Level Start Levetiractam 750 mg 3 - 3 (Increased after hospitalization 09/2017) Depakote Sprinkle 125 mg 4 - 4(Increased after hospitalization 09/2017) Gabapentin 300 mg 1 - 1 or 1 - 1 -1 COMPLIANCE Good TREATMENT HISTORY Name Allergy/Side Effects/Ineffectiveness Phenytoin EE07/2015 Normal awake and drowsy EEG 09/2017 [...] slowing, suggestive of underline structure/functional abnormalities. 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 Age of onset [id number]. Clinical semiology described as initial aura of tingling sensation over the right side, with subsequent convulsions, tongue bites. Also has Cervical Osteoarthritis, B12 Deficiency, history of alcohol dependence resolved 2016, B12 deficiency. - Initially was taking Levetiracetam 1500 mg BID, with seizure being controlled but has multiple seizures in 09/2017, in the setting of missed dosage. The seizures clustered, and was difficult to control. The patient was discharged on Levetiracetam 2000 mg BID and Depakote Sprinkle 500 mg BID. - Today the patient came for visit. He states that he is taking Levetiracetam 750 mg 3 - 3 for his seizure control. Well tolerated. No breakthrough events. Reported improved compliance. Not taking Depakote Sprinkle. ROS: General Negative except per HPI Eyes [...] No Known Allergies Home Medications: Current Outpatient Prescriptions Medication Sig ??? levETIRAcetam (KEPPRA) 750 MG tablet Take 3 tablets by mouth 2 times daily ??? Cyanocobalamin (B-12) 1000 MCG Take 1 mg by mouth once daily ??? folic acid (FOLVITE) 1 MG tablet Take 1 tablet by mouth once daily ??? gabapentin (NEURONTIN) 300 MG capsule Take 1 capsule by mouth 3 times daily ??? aspirin (ASPIRIN) 81 MG chew tablet Take 1 tablet by mouth once daily ??? clonazePAM (KLONOPIN) 0.5 MG tablet Take 1 tablet by mouth every 8 hours as needed (After a seizure to prevent clustering. Please call the office if seizures occur.) ??? thiamine (VITAMIN B-1) 100 MG tablet Take 1 tablet by mouth once daily ??? amLODIPine (NORVASC) 5 MG tablet Take 1 tablet by mouth once daily ??? MAPAP 325 MG tablet TK 2 TS PO Q 4 H PRN P ??? atorvastatin (LIPITOR) 40 MG tablet Take 40 mg by mouth once daily No current facility-administered [...] file Social History Narrative Physical Exam: Vitals: 01/09/18 1334 BP: 140/86 Pulse: 68 SpO2: 97% Weight: 137 lb 12.8 oz (62.5 kg) General Awake, alert, appropriate HEENT: Head normocephalic [...] of 50-year-old. Occurred after his ischemic stroke. Semiology consisted of initial aura of tingling sensation over the right side, with subsequent convulsions, tongue bites. - Initially was taking Levetiracetam 1500 mg BID, with seizure being controlled but has multiple seizures in 09/2017, in the setting of missed dosage. The seizures clustered, and was difficult to control. The patient was discharged on Levetiracetam 2000 mg BID and Depakote Sprinkle 500 mg BID. Todaystates that he is taking Levetiracetam 750 mg 3 - 3 for his seizure control only. Well tolerated. No breakthrough events. Reported improved compliance. Not taking Depakote Sprinkle. - Will continue Levetiracetam 750 mg 3 - 3 per patient given tolerability and to avoid medication confusion. Given history of seizure clustering, I also prescribed Clonazepam 0.5 mg to take PRN aftera seizure to prevent clustering, and ask the patient to call us to determine whether the seizure was due to erratic compliance, provoked, or inadequate AED. Gabapentin 300 mg PO TID is prescribed predominantly for neuropathic issue, not epilepsy. I asked for him to discontinue Tramadol. - He will need more frequent appointment, and asked for him to come every 3 months until ensure good control/compliance. CBC, CMP, LEV/VPA Levels ordered today. #Cerebrovascular disease Ischemic stroke, with resulted left-sided visual difficulty. Currently taking aspirin daily. F/U with PCP. ASA represcribed. He also asked for Amlodipine 5 mg refill for his HTN, I gave him a 3 months supply and asked for additional refill to be per PCP. #Vitamin B Deficiency Currently taking vitamin B supplement and Folic acid. Replacement reordered. Folic/B12 level today.B12 1000 mcg PO q Day and Folic 1 mg PO q Day prescribed. #Gait instability - Generalized hyperreflexia, more on left. MP 4+ both legs. (Diffuse WM lesion in MRI 04/13, Degenerative spine changes in CT Spine). MRI C-spine ordered for evaluation of possible cervical myelopathy. Follow up in 3 months. Ck Feliciano MD documented in this encounter Plan of Treatment Upcoming Encounters Date Type Department Care Team (Late st Contact Info) Description 12/05/2024 1:00 PM CDT Office Visit [facility] - Neurology [address] [place] [address], [place] [address] Sean Raymundo, [address] [place] [address] [place] [address] documented as of this encounter Results * MRI CERVICAL SPINE WO CONTRAST (02/13/2018 [...] 2:30 PM . I, Dr. JOSE ALEJANDRO LORA have personally reviewed and interpreted this examination/study. This report was electronically signed by JOSE ALEJANDRO LORA ??on 02/13/2018 6:38 PM . Narrative 02/13/2018 [...] neural foraminal stenosis. Procedure Note Jose Alejandro Lora MD - 02/13/2018 EXAMINATION: Magnetic resonance imaging [...] 02/13/2018 2:30 PM. I, Dr. JOSE ALEJANDRO LORA have personally reviewed and interpreted this examination/study. This report was electronically signed by JOSE ALEJANDRO LORA on 02/13/2018 6:38 PM . Ck Feliciano MD MR ORDERABLES * FOLATE (01/09/2018 2:51 PM CDT) Folate 14.1 7.0 - 31.4 ng/mL 01/09/2018 4:37 PM CDT [facility] Blood BLOOD SPECIMEN / Unknown Lab Venipuncture / Unknown 01/09/2018 2:51 PM CDT 01/09/2018 3:34 PM CDT Ck Feliciano MD LAB - CHEMISTRY ORDERABLES [address] [phone] * VITAMIN B12 (01/09/2018 2:51 PM CDT) Vitamin B12 320 213 - 816 pg/mL 01/09/2018 4:31 PM CDT [facility] Blood BLOOD SPECIMEN / Unknown Lab Venipuncture / Unknown 01/09/2018 2:51 PM CDT 01/09/2018 3:33 PM CDT Ck Feliciano MD LAB - CHEMISTRY ORDERABLES Performing Organization Address [facility]/ZIP Co de Phone Number [address] [phone] * (ABNORMAL) VALPROIC ACID LEVEL (01/09/2018 2:51 PM CDT) [facility] Valproic Acid Total 41(L) 50 - 100 mcg/mL 01/09/2018 4:44 PM CDT [facility] Blood BLOOD SPECIMEN / Unknown Lab Venipuncture / Unknown 01/09/2018 2:51 PM CDT 01/09/2018 3:34 PM CDT Ck Feliciano MD LAB - CHEMISTRY ORDERABLES [facility] [address] [place] [address] * (ABNORMAL) LEVETIRACETAM LEVEL (01/09/2018 2:51 PM CDT) [facility] Levetiracetam 54.9(H) 10.0 - 40.0 ug/mL 01/12/2018 3:17 PM CDT [facility] Blood BLOOD SPECIMEN / Unknown Lab Venipuncture / Unknown 01/09/2018 2:51 PM CDT 01/09/2018 3:34 PM CDT Narrative [facility] - 01/12/2018 3:17 PM CDT Performed at: ??01 - [facility] [address] ??[id number] Tune Up Mechanic: Vito Hay MD, Phone: ??[phone] Ck Feliciano MD LAB - THERAPEUT IC DRUG MONITORING ORDERABLES [facility] [address] [place] [address] * (ABNORMAL) COMPREHENSIVE METABOLIC PANEL (01/09/2018 2:51 PM CDT) [facility] BUN 14 7 - 26 mg/dL 01/09/2018 3:59 PM CDT [facility] Creatinine 0.9 0.6 - 1.2 mg/dL 01/09/2018 3:59 PM CDT [facility] Sodium 142 136 - 145 mmol/L 01/09/2018 3:59 PM [facility] Potassium 3.9 3.5 - 4.5 mmol/L 01/09/2018 3:59 PM [facility] Chloride 108(H) 98 - 107 mmol/L 01/09/2018 3:59 PM [facility] CO2 22 22 - 29 mmol/L 01/09/2018 3:59 PM [facility] Glucose 86 70 - 115 mg/dL 01/09/2018 3:59 PM [facility] Calcium 9.0 8.4 - 10.2 mg/dL 01/09/2018 3:59 PM [facility] Protein Total 6.9 6.0 - 8.3 g/dL 01/09/2018 3:59 PM [facility] Albumin 4.0 3.4 - 5.0 g/dL 01/09/2018 3:59 PM [facility] Bilirubin Total 0.5 0.2 - 1.2 mg/dL 01/09/2018 3:59 PM [facility] Alkaline Phosphatase 81 40 - 150 Units/L 01/09/2018 3:59 PM [facility] ALT 8 0 - 55 Units/L 01/09/2018 3:59 PM [facility] AST 15 5 - 34 Units/L 01/09/2018 3:59 PM [facility] Anion Gap 16 8 - 18 01/09/2018 3:59 PM [facility] BUN/Creatinine Ratio 16 7 - 23 01/09/2018 3:59 PM [facility] Osmolality Calculated 294 270 - 300 mOsm/kg 01/09/2018 3:59 PM [facility] Albumin/Globulin Ratio 1.4 1.1 - 2.3 01/09/2018 3:59 PM [facility] eGFR >60 >60 mL/min/1.7 3 m2 01/09/2018 3:59 PM [facility] Blood BLOOD SPECIMEN / Unknown Lab Venipuncture / Unknown 01/09/2018 2:51 PM CDT 01/09/2018 3:34 PM CDT Ck Feliciano MD LAB - CHEMISTRY ORDERABLES [facility] [address] [phone] * (ABNORMAL) CBC W AUTO DIFFERENTIAL (01/09/2018 2:51 PM CDT) WBC 5.3 3.5 - 10.5 10? 3 /uL 01/09/2018 3:43 PM [facility] RBC 4.65 4.30 - 5.70 10? 6 /uL 01/09/2018 3:43 PM [facility] Hemoglobin 15.0 13.5 - 17.5 g/dL 01/09/2018 3:43 PM [facility] Hematocrit 44.7 39.0 - 50.0 % 01/09/2018 3:43 PM [facility] MCV 96.1 81.0 - 97.0 fL 01/09/2018 3:43 PM [facility] MCH 32.3 28.0 - 34.0 pg 01/09/2018 3:43 PM [facility] MCHC 33.6 32.0 - 36.0 g/dL 01/09/2018 3:43 PM [facility] Platelet Count 147(L) 150 - 400 10? 3 /uL 01/09/2018 3:43 PM [facility] RDW-SD 44.1 36.0 - 50.0 fL 01/09/2018 3:43 PM [facility] RDW-CV 12.6 11.2 - 14.8 % 01/09/2018 3:43 PM [facility] MPV 12.5 9.3 - 12.8 fL 01/09/2018 3:43 PM [facility] Neutrophils % 41.3 35.0 - 70.0 % 01/09/2018 3:43 PM [facility] Lymphocytes % 52.2 19.7 - 55.1 % 01/09/2018 3:43 PM [facility] Monocytes % 3.9 3.0 - 15.0 % 01/09/2018 3:43 PM [facility] Eosinophils % 2.2 0.0 - 6.0 % 01/09/2018 3:43 PM [facility] Basophil % 0.4 0.0 - 1.5 % 01/09/2018 3:43 PM CDT [facility] Neutrophils Absolute 2.2 1.6 - 7.0 10? 3 /uL 01/09/2018 3:43 PM CDT [facility] Lymphocyte Absolute 2.8 0.8 - 2.9 10? 3 /uL 01/09/2018 3:43 PM CDT [facility] Monocytes Absolute 0.21 0.14 - 0.66 10? 3 /uL 01/09/2018 3:43 PM CDT [facility] Eosinophils Absolute 0.12 0.00 - 0.22 10? 3 /uL 01/09/2018 3:43 PM T [facility] Basophils Absolute 0.02 0.00 - 0.06 10? 3 /uL 01/09/2018 3:43 PM T [facility] Immature Granulocytes % 0.2 0.0 - 1.0 % 01/09/2018 3:43 PM T [facility] Blood BLOOD SPECIMEN / Unknown Lab Venipuncture / Unknown 01/09/2018 2:51 PM CDT 01/09/2018 3:33 PM CDT Ck Feliciano MD LAB - HEMATOLOG Y ORDERABLES Performing Organization Address City/State/[facility] Co de Phone Number [facility] [address] [place] [address] documented in this encounter Visit Diagnoses Diagnosis Epilepsy with seizures of localized onset (HCC)- Primary Vitamin B12 deficiency Other B-complex deficiencies Folate deficiency Other B-complex deficiencies Thiamine deficiency Other and unspecified manifestations of thiamine deficiency Hypertension, unspecified type Gait instability Abnormality of gait Neck pain Cervicalgia Osteoarthritis of cervical spine with myelopathy Gait instability Abnormality of gait Neck pain Cervicalgia Osteoarthritis of cervical spine with myelopathy documented in this encounter Care Teams Engineer Station Mainline Relationship Specialty Start Date End Date Misael Maradiaga DO PCP - General 10/03/17 09/15/20 Elizabeth Sullivan, RN Records And Information Manager 10/14/17 documented as of this encounter
--- OUTSIDE RECORDS SUMMARY | 2024-06-08 05:44 | XMS_ITS | Encounter Summary ---
Author Organization [facility] Health Address [address] [place] [address] Care Team Providers Care Enterostomal Nurse Name Role Phone Misael Maradiagajamel DO Primary Care Provider Elizabeth Sullivan RN Unavailable [phone] Encounter Details Date Type Department Care Team (Late st Contact Info) Description 10/20/2017 Orders Only [facility] - Orthopedics [address] [facility] [place] [address] Nas Owens MD [address] [place] [address] Closed displaced fracture of shaft of right clavicle with routine healing, subsequent encounter Social History Tobacco Use Types Packs/Day [...] No 10/15/2017 documented as of this encounter Plan of Treatment Upcoming Encounters Date Type Department Care Team (Late st Contact Info) Description 12/05/2024 1:00 PM CDT Office Visit [facility] - Neurology [address] [place] [address], [place] [address] Sean Raymundo DO [facility] [place] [id number] documented as of this encounter Visit Diagnoses Diagnosis Closed displaced fracture of shaft of right clavicle with routine healing, subsequent encounter- Primary documented in this encounter Care Teams Enterostomal Nurse Relationship Specialty Start Date End Date Misael Maradiaga DO PCP - General 10/03/17 09/15/20 Elizabeth Sullivan, RN Field Attendant 10/14/17 documented as of this encounter
--- OUTSIDE RECORDS SUMMARY | 2024-06-08 05:44 | XMS_ITS | Encounter Summary ---
Author Organization [facility] Address [address] [place] [address] Care Team Providers Care Truck Packer Name Role Phone Misael Maradiaga DO Primary Care Provider Elizabeth Sullivan RN Unavailable [phone] Reason for Visit * Reason Comments Seizure Reports he had a sei zure at ~2130. States he felt it coming on and was able to walk himself to the bathroom during the seizure. Did not lose consciousness during seizure. Characterizes his seizures as dizziness, shaking, and loss of balance Encounter Details Date Type Department Care Team (Late st Contact Info) Description 09/05/2018 11:06 PM CDT - 09/06/2018 3:15 AM T Emergency [facility] EMER[facility]ENCY DEPARTMENT [address] [place] [address] Naa Reyna MD [address] [place] [address] Encounter for medication refill; Tremors of nervous system Discharge Disposition: Home or Self Care Social [...] Sign Reading Time Taken Comments Blood Pressure 133/68 09/06/2018 2:49 AM CDT Pulse 83 09/06/2018 2:49 AM CDT Temperature 37.2 ??C (98.9 ??F) 09/05/2018 10:13 PM C DT Respiratory Rate 18 09/06/2018 2:49 AM CDT Oxygen Saturation 100% 09/06/2018 2:49 AM CDT Inhaled Oxygen Concentration - - Weight 71.2 kg (157 lb) 09/05/2018 10:13 PM CDT Height 180.3 cm (5' 11 ) 09/05/2018 10:13 PM CDT Body Mass Index 21.9 09/05/2018 10:13 PM CDT documented in this encounter Functional [...] this encounter Discharge Instructions * Discharge Instructions* Herb Chairez MD - 09/06/2018 2:53 AM CDT Gabapentin (By mouth) Gabapentin ([id number]) Treats seizures and pain caused by shingles. Brand Name(s): FusePaq Fanatrex, Gralise, Gralise Starter Pack, Neurontin There may be other brand names for this medicine. When This Medicine Should Not Be Used: This medicine is not right for everyone. Do not use it if you had an allergic reaction to gabapentin. How to Use This Medicine: Capsule, Liquid, Tablet ?? Take your medicine as directed. Your dose may need to be changed several times to find what works best for you. If you have epilepsy, do not allow more than 12 hours to pass between doses. ?? Capsule: Swallow the capsule whole with plenty of water. Do not open, crush, or chew it. ?? Gralise?? tablet: Swallow the tablet whole . Do not crush, break, or chew it. ?? Neurontin?? tablet: If you break a tablet into 2 pieces, use the second half as your next dose. If you don't use it within 28 days, throw it away. ?? Measure the oral liquid medicine with a marked measuring spoon, oral syringe, or medicine cup. ?? This medicine should come with a Medication Guide. Ask your pharmacist for a copy if you do not have one. ?? Missed dose: Take a dose as soon as you remember. If it is almost time for your next dose, wait until then and take a regular dose. Do not take extra medicine to make up for a missed dose. ?? Store the medicine in a closed container at room temperature, away from heat, moisture, and direct light. Store the Neurontin?? oral liquid in the refrigerator. Do not freeze. Drugs and Foods to Avoid: Ask your doctor or pharmacist before using any other medicine, including pohn-vlf-bjsqirr medicines, vitamins, and herbal products. ?? Some medicines can affect how gabapentin works. Tell your doctor if you also use any of the following: ?? Hydrocodone ?? Morphine ?? If you take an antacid, wait at least 2 hours before you take gabapentin. ?? Tell your doctor if you use anything else that makes you sleepy. Some examples are allergy medicine, narcotic pain medicine, and alcohol. Warnings While Using This Medicine: ?? Tell your doctor if you are or , or if you have kidney problems or are receiving dialysis. Tell your doctor if you have a history of depression or mental health problems. ?? This medicine may increase depression or thoughts of suicide. Tell your doctor right away if youstart to feel more depressed or think about hurting yourself. ?? This medicine may cause a serious allergic reaction called multiorgan hypersensitivity, which can damage organs and be life-threatening. ?? Do not stop using this medicine suddenly. Your doctor will need to slowly decrease your dose before you stop it completely. If you take this medicine to prevent seizures, your seizures may return or occur more often if you stop this medicine suddenly. ?? This medicine may make you dizzy or drowsy. Do not drive or do anything else that could be dangerous until you know how this medicine affects you. ?? Tell any doctor or dentist who treats you that you are using this medicine. This medicine may affect certain medical test results. ?? Your doctor will check your progress and the effects of this medicine at regular visits. Keep all appointments. ?? Keep all medicine out of the reach of children. Never share your medicine with anyone. Possible Side Effects While Using This Medicine: Call your doctor right away if you notice any of these side effects: ?? Allergic reaction: Itching or hives, swelling in your face or hands, swelling or tingling in your mouth or throat, chest tightness, trouble breathing ?? Behavior problems, aggression, restlessness, trouble concentrating, moodiness (especially in children) ?? Blistering, peeling, red skin rash ?? Change in how much or how often you urinate, bloody or cloudy urine, ?? Chest pain, fast heartbeat, trouble breathing ?? Dark urine or pale stools, nausea, vomiting, loss of appetite, stomach pain, yellow skin or eyes ?? Fever, rash, swollen or tender glands in the neck, armpit, or groin ?? Problems with coordination, shakiness, unsteadiness ?? Rapid weight gain, swelling in your hands, ankles, or feet ?? Unusual moods or behaviors, thoughts of hurting yourself, feeling depressed If you notice these less serious side effects, talk with your doctor: ?? Dizziness, drowsiness, sleepiness, tiredness If you notice other side effects that you think are caused by this medicine, tell your doctor. Call your doctor for medical advice about side effects. You may report side effects to FDA at 3-346-FLY-3606 ?? Copyright [employer] 2019 Information is for End User's use only and may not be sold, redistributed or otherwise used for commercial purposes. The above information is an paid internship only. It is not intended as medical [...] tablet 06/10/2018 01/07/2022 clonazePAM (KLONOPIN) 0.5 MG tabletIndications:Parti al 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, intractable, without status epilepticus (HCC) Take 1 tablet by mouth every 8 hours as needed (After a seizure to prevent clustering. Please call the office if seizures occur.) 20 tablet 5 08/09/2018 10/21/2018 Cyanocobalamin (B-12) 1000 MCGIndications:Vitamin B12 deficiency Take 1 mg by mouth once daily 30 capsule 8 04/11/2018 10/26/[address] (DEPAKOTE) 500 MG tabletIndications:Parti al 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, intractable, without status epilepticus (HCC) Take 1 tablet by mouth 2 times daily 60 tablet 11 08/09/2018 10/26/2018 divalproex sprinkle (DEPAKOTE SPRINKLE) 125 MG capsule 08/15/2018 10/26/2018 folic acid (FOLVITE) 1 MG tabletIndications:Folat e deficiency Take 1 tablet by mouth once daily 30 tablet 8 04/11/2018 10/26/2018 gabapentin (NEURONTIN) 300 MG capsuleIndications:Part ial 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, intractable, without status epilepticus (HCC) Take 1 capsule by mouth 3 times daily 90 capsule 11 09/06/2018 10/26/2018 ibuprofen (MOTRIN) 600 MG tablet Take 600 mg by mouth as needed 09/01/2018 01/07/2022 levETIRAcetam (KEPPRA) 750 MG tabletIndications:Parti al 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, intractable, without status epilepticus (HCC) Take 3 tablets by mouth 2 times daily 180 tablet 11 08/09/2018 10/21/2018 levETIRAcetam (KEPPRA) 750 MG tabletIndications:Parti al 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, intractable, without status epilepticus (HCC) Take 3 tablets by mouth 2 times daily for 30 days 180 tablet 06/10/2018 01/14/2023 OXcarbazepine (TRILEPTAL) 300 MG tabletIndications:Parti al 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, intractable, without status epilepticus (HCC) Take 1.5 tablets by mouth 2 times daily 90 tablet 11 08/09/2018 10/26/2018 thiamine (VITAMIN B-1) 100 MG tabletIndications:Lucia ine deficiency Take 1 tablet by mouth once daily 30 tablet 8 04/11/2018 10/26/2018 documented as of this encounter ED Notes * Marcella Rouse RN - 09/06/2018 3:15 AM CDT Called pt, verified and provided results. HIV Ag/Ab screen negative. Pt verbalized understanding. MURRAY Chi, RN Lead Nurse [place] [address] * Melany Dumont RN - 09/06/2018 3:13 AM CDT Cab ride arranged for patient. Patient placed in waiting room. * Melany Dumont RN - 09/06/2018 1:49 AM CDT Patient informed he will be discharged home. Patient states he will need a cab ride. knockup worker notified. * Herb Chairez MD - 09/06/2018 1:30 AM CDT History Chief Complaint Patient presents with ??? Seizure Reports he had a seizure at ~2130. States he felt it coming on and was able to walk himself to the bathroom during the seizure. Did not lose consciousness during seizure. Characterizes his seizures as dizziness, shaking, and loss of balance HPI 58 year old male has a past medical history of CVA (cerebral vascular accident); HTN (hypertension); and Seizure. Presents to ED for seizure. Pt reports he felt unsteady on his feet, then he sat on the toilet to have a bowel movement. Pt denies losing consciousness, denies falling down, denies hitting his head, denies biting his tongue. Pt reports he remembers entire event and had no altered level of consciousness throughout the entire event. Pt reports he was able to immediately call 911 to have an ambulance bring him here. Pt reports he gets seizures every time he runs out of gabapentin. Now that he is here he denies any current complaints and states he feels at his baseline. Pt reports he takes his keppra, depakote, and oxcarbazepine as prescribed to control his seizures. Pt reports he took his gabapentin as prescribed until he ran out. Pt reports he ran out of gabapentin because he PCP won't write for it, but his PCP writes for the rest of his seizure meds. Past Medical History: Diagnosis Date ??? CVA [...] on file Social History Narrative Review of systems Constitutional: no fevers, no chills Eyes: No double vision, no blurry vision, no pain with eye movements ENT: No sore throat, no nosebleeds, no dysphagia Cardiovascular: no chest pain, no heart palpitations Respiratory: no shortness of breath, no cough, no wheezing Gastrointestinal: no abdominal pain, no nausea, no vomiting, no diarrhea Genitourinary: no dysuria, no hematuria Musculoskeletal: no joint pain, no swelling Skin: No rash, no sores Neuro: no focal weakness, seizure, no LOC BP 145/81 Pulse 86 Temp 98.9 ??F (37.2 ??C) Resp 16 Ht 1.803 m (5' 11 ) Wt 71.2 kg (157 lb) SpO2 100% BMI 21.9 kg/m2 Physical Exam Constitutional: Well developed, well nourished, in NAD Eyes: Sclera normal, EOMI, PERRL 2 mm bilaterally Head: normocephalic, atraumatic ENT: TM clear bilaterally, moist mucous membranes, no nasal discharge Neck: supple, non-tender, no lymphadenopathy, no JVD Pulmonary: CTAB, no wheezing/rhonci/rales, good air movement Cardiovascular: RRR, no murmurs rubs or gallops Abdomen: soft, Non-tender, Non-distended, no guarding Extremities: no swelling, peripheral pulses intact, normal ROM Neuro: alert and oriented x3, 5/5 strength in all extremities, CN II-XII intact, no nystagmus, significant past pointing bilaterally which is likely chronic for him. Gait instability noted, but Pt reports this is his normal and is why he walks with a walker. MDM Clinical Diagnosis: 58 y/o medically complex M who presents with self reported seizure this evening. Pt's story is not consistent with epileptic activity, but he gets these feelings/spells every time he runs out of gabapentin. Plan to replace gabapentin and facilitate getting outpatient appointment with his neurologist to look into these spells. DDX: Seizure vs neuropathic pain vs tremor vs presyncope vs other Plan: -labs -imaging -symptom control -reassess ED Course -Patient seen and evaluated, available studies reviewed -Initial workup and treatment plan discussed with patient and provided opportunity to ask questions Labs Reviewed VALPROIC ACID LEVEL - Normal HIV-1 HIV-2 ANTIGEN/ANTIBODY - Normal LEVETIRACETAM LEVEL OXCARBAZEPINE BLOOD No orders to display -I have reviewed the diagnostic findings with the patient and they have had an opportunity to ask me any questions they have about care, diagnosis and discharge plan. The patient is comfortable with the discharge plan. They will follow up as directed and will return to the ER if their condition worsens or if they develop other urgent concerns. Procedures ED Final Diagnosis and Discharge information 1. Partial 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, intractable, without status epilepticus 2. Encounter for medication refill 3. Tremors of nervous system Disposition Discharge Home * Melany Dumont RN - 09/06/2018 12:[address] Chairez at bedside speaking with patient. * Naa Reyna MD - 09/06/2018 12:05 AM CDT Resident Attestation I have performed an independent history and physical examination and discussed the patient's management with the resident. I agree with the findings, assessment and plan of care as documented by the resident except as noted: Chief Complaint Patient presents with ??? Seizure Reports he had a seizure at ~2130. States he felt it coming on and was able to walk himself to the bathroom during the seizure. Did not lose consciousness during seizure. Characterizes his seizures as dizziness, shaking, and loss of balance Interval History: Bi Tabor is a 58 year old male with seizure disorder after ischemic strokealmost 10 years ago. States every time he runs out of his gabapenin, eh has a seizure. Sat down in the bathroom and was there for about 20 minutes. He was awake and remembered it. Has a fancy button on his cell phone that he used to call 911. No tongue biting or incontienence. Takes all of the rest of his medications as prescribed. Feels well now. No present complaints. Past Medical History: Diagnosis Date ??? CVA (cerebral vascular accident) ??? HTN (hypertension) ??? Seizure No past surgical history on file. No family history on file. Exam: Vitals: 09/05/18 2213 BP: 124/85 Pulse: 94 Resp: 16 Temp: 98.9 ??F (37.2 ??C) SpO2: 100% Weight: 71.2 kg (157 lb) Height: 1.803 m (5' 11 ) Gen: Laying in bed in no acute distress HEENT: Normocephalic, atraumatic, mucus membranes moist EYES: Pupils equal round and reactive to light Cardiovascular: Regular rate and rhythm Respiratory: Clear to ascultation bilaterally, unlabored Abdomen: soft, non-tender, non-distended Ext: moving all extremities, no gross deformities, no swelling Neuro: Awake, alert Psych: appropriate ED Course: Labs Reviewed VALPROIC ACID LEVEL - Normal HIV-1 HIV-2 ANTIGEN/ANTIBODY - Normal LEVETIRACETAM LEVEL OXCARBAZEPINE BLOOD No orders to display MDM: Problem List: 1) Seizure Differential diagnosis to evaluate in the emergent setting: Gabapentin deficiency seizures Workup: See lab testing and radiography ordered Treatment plan: Will prescribe gabapentin. Reassess Plan for discharge. I have reviewed the diagnostic findings and concerns with Bi Tabor and they had an opportunity to ask me any questions about care, diagnosis and discharge plan. he is comfortable with the discharge plan. Will follow up asdirected and will return to the ER if condition worsens or if other urgent concerns develop. Clinical Impression: 1. Partial 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, intractable, without status epilepticus 2. Encounter for medication refill 3. Tremors of nervous system Consult No Procedure done at this time No Ultrasound done at this time No Critical Care: 0 minutes Please see resident note for further details. Naa Reyna MD 09/06/2018 12:05 AM * Melany Dumont, RN - 09/05/2018 11:31 PM CDT Patient ambulating with walker from bathroom upon this RN entering room. Patient states he had a seizure at 2130 tonight where symptoms lasted 20 minutes. Patient describes his symptoms as dizziness,unsteady on feet, feeling shaky and urge to have BM. Patient states he was able to walk to bathroomand sit on toilet during seizure, denies falling or LOC. Patient denies loss of bowel or bladder. Patient states during episode he was able to call and speak to ambulance. Patient states he feels much better now, denies any complaints. Patient reports he is out of his gabapentin and every time he has ran out of it he has had a seizure. Reports had seizure 3 weeks ago and neurologist started him on Depakote and oxcarbazepine. documented in this encounter Plan of Treatment Upcoming Encounters Date Type Department Care Team (Late st Contact Info) Description 12/05/2024 1:00 PM CDT Office Visit [facility] - Neurology [address] [facility] [place] [id number] Sean Raymundo, DO [address] [place] [phone] documented as of this encounter Procedures Procedure Name Priority Date/Time Associated Diagnosis Comments HIV-1 HIV-2 ANTIGEN/ANTIBODY STAT 09/05/2018 10:52 PM CDT LEVETIRACETAM LEVEL STAT 09/05/2018 1 0:52 PM CDT OXCARBAZEPINE BLOOD STAT 09/05/2018 1 0:52 PM CDT VALPROIC ACID LEVEL STAT 09/05/2018 1 0:52 PM CDT documented in this encounter Results * HIV-1 HIV-2 ANTIGEN/ANTIBODY (09/05/2018 10:52 PM CDT) HIV Antigen/Antibod y 1 & 2 Non-reacti ve Non-react phan 09/05/2018 11:33 PM CDT [facility] Comment: Neither HIV-1 p24 Antigen nor HIV-1/HIV-2 Antibodies are detected. ? Blood BLOOD SPECIMEN / Unknown Venipuncture / Unknown 09/05/2018 10:52 PM CDT 09/05/2018 10:55 PM CDT Naa Reyna MD LAB - HEMATOLOGY ORD ERABLES [facility] [address] [place] [id number], [facility] [phone] * VALPROIC ACID LEVEL (09/05/2018 10:52 PM CDT) Pathologist [facility] Valproic Acid Total 65 50 - 100 mcg/mL 09/05/2018 11:18 PM CDT [facility] Blood BLOOD SPECIMEN / Unknown Venipuncture / Unknown 09/05/2018 10:52 PM CDT 09/05/2018 10:55 PM CDT Silviatremaine Mercedeschar BYERSFITNESS AND WELLNESS INSTRUCTOR LAB - CHEMISTR Y ORDERABLES Performing Organization Address [facility] Co de Phone Number [address] [phone] * (ABNORMAL) OXCARBAZEPINE BLOOD (09/05/2018 10:52 PM CDT) Oxcarbazepine Metabolite 3(L) 10 - 35 ug/mL 09/10/2018 1:05 AM CDT [facility] ([facility]) Comment: This test was developed and its performance characteristics determined by [facility]. It has not been cleared or approved by the Food and Drug Administration. ?Detection Limit = 1 Blood BLOOD SPECIMEN / Unknown Venipuncture / Unknown 09/05/2018 10:52 PM CDT 09/05/2018 10:55 PM CDT Narrative [facility] ([facility]) - 09/10/2018 1:05 AM CDT Performed at: ??01 - [address] ??[id number] Professor Of Economics: Terence Ramos MD, Phone: ??[phone] Amiradwight Phyllis [facility] LAB - CHEMISTR Y ORDERABLES Performing Organization Address [facility] Co de Phone Number [facility] [address] [id number] * (ABNORMAL) LEVETIRACETAM LEVEL (09/05/2018 10:52 PM CDT) Levetiracetam 66.4(H) 10.0 - 40.0 ug/mL 09/10/2018 12:05 AM CDT [facility] ([facility]) Comment: This test was developed and its performance characteristics determined by [facility]. It has not been cleared or approved by the Food and Drug Administration. Blood BLOOD SPECIMEN / Unknown Venipuncture / Unknown 09/05/2018 10:52 PM CDT 09/05/2018 10:55 PM CDT Narrative [facility] ([facility]) - 09/10/2018 12:05 AM CDT Performed at: ??01 - [facility] [address] ??[id number] Professor Of Economics: Terence Ramos MD, Phone: ??[phone] Silviatremaine Phyllis RECORDAK OPERATOR-FITNESS AND WELLNESS INSTRUCTOR LAB - THERAPEU TIC DRUG MONITORING ORDERABLES [facility] ([facility]) [address] [place] [address] documented in this encounter Visit Diagnoses Diagnosis Partial 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, intractable, without status epilepticus (HCC) Encounter for medication refill Issue of repeat prescriptions Tremors of nervous system Abnormal involuntary movements documented in this encounter Administered Medications Inactive Administered Medications - up to 3 most recent administrations Medication Order MAR Action Action Date Dose Rate Site gabapentin (NEURONTIN) capsule 300 mg 300 mg, Oral, NOW, 1 dose, On Tue09/06/18 at 0145 $ Given 09/06/2018 1:49 AM CDT 300 mg documented in this encounter Active and Recently Administered Medications Times are shown in CDT. Scheduled Medication Order 09/04/2018 09/05/2018 09/06/2018 gabapentin (NEURONTIN) capsule 300 mg (COMPLETED) 300 mg, Oral, NOW, 1 dose, On Tue09/06/18 at 0145 0149 ($ Given - Prov ider: Melany Dumont RN) documented in this encounter Care Teams Truck Packer Relationship Specialty Start Date End Date Misael Maradiaga DO PCP - General 10/03/17 09/15/20 Elizabeth Sullivan, ALFRED Engineer Of System Development 10/14/17 documented as of this encounter
--- OUTSIDE RECORDS SUMMARY | 2024-06-08 05:44 | XMS_ITS | Encounter Summary ---
Author Organization [facility] Health Address [address] [place] [address] Care Team Providers Care Mailing Section Clerk Name Role Phone Hiren Misael Bradley DO Primary Care Provider Elizabeth Sullivan RN Unavailable [phone] Reason for Visit * Reason Comments Seizure pt states he had a s eizure. states he got dizzy and took a gabapentin and took a nap. pt woke and dialed lifeline and thought he had a seizure. denies any dizziness at this time Encounter Details Date Type Department Care Team (Late st Contact Info) Description 10/13/2018 7:59 PM CDT - 10/13/2018 9:30 PM T Emergency [facility] [address] [place] [address] Eliane Tai MD [address] [place] [address] Seizure (HCC) Discharge Disposition: Home or Self [...] Sign Reading Time Taken Comments Blood Pressure 150/88 10/13/2018 8:35 PM CDT Pulse 90 10/13/2018 4:46 PM CDT Temperature 36.7 ??C (98.1 ??F) 10/13/2018 4:46 PM CD T Respiratory Rate 16 10/13/2018 4:46 PM CDT Oxygen Saturation 99% 10/13/2018 4:46 PM CDT Inhaled Oxygen Concentration - - Weight 72.6 kg (160 lb) 10/13/2018 4:46 PM CDT Height 180.3 cm (5' 11 ) 10/13/2018 4:46 PM CDT Body Mass Index 22.32 10/13/2018 4:46 PM CDT documented in this encounter Functional [...] * Discharge Instructions* Eliane Tai MD - 10/13/2018 9:10 PM CDT Images from the original note [...] DISCHARGE INSTRUCTIONS: Call your local emergency number (861 in the [place]) or have someone else [...] to use if you have another seizure: ?? Do not panic. ?? Gently guide me to the floor or a soft surface. ?? Do not hold me down or put anything in my mouth. ?? Place me on my side to help prevent me from swallowing saliva or vomit. ?? Protect me from injury. Remove sharp or hard objects from the area surrounding me, or cushion myhead. ?? Loosen the clothing around my head and neck. ?? Time how long my seizure lasts. Call 911 if my seizure lasts longer than 5 minutes or if I have a second seizure. ?? Stay with me until my seizure ends. Let me rest until I am fully awake. ?? Perform CPR if I stop breathing or you cannot feel my pulse. ?? Do not give me anything to eat [...] ask them during your visits. ?? Copyright [employer] 2019 Information is for End User's use only and may not be sold, redistributed or otherwise used for commercial purposes. All illustrations and images included in CareNotes?? are the copyrighted property of [employer] or [employer] The above information is an forestry fire aide only. It is not intended as medical advice for individual conditions or treatments. Talk to your doctor, nurse or pharmacist before following any medical regimen to see if it is safe and effective for you. It is really important to take all medications as prescribed. Please follow up with your neurologist as scheduled. 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, intractable, without status epilepticus (HCC) Take 3 tablets by mouth 2 times daily 180 tablet 11 08/09/2018 10/21/2018 levETIRAcetam (KEPPRA) 750 MG tabletIndications:Becky bañuelos 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, intractable, without status epilepticus (HCC) Take 3 tablets by mouth 2 times daily for 30 days 180 tablet 06/10/2018 01/14/2023 OXcarbazepine (TRILEPTAL) 300 MG tabletIndications:Becky bañuelos 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 Vitals stable, breathing even/easy/unlabored. No signs of distress. All belongings with pt. Calling cab ride for pt * Sean Alvarez RN - 10/13/2018 8:57 PM CDT Pt sand conditioner light saying he feels better and requesting to leave soon. MD aware and assessing pt at this time * Sean Alvarez RN - 10/13/2018 8:55 PM CDT Pt ambulated to room w/ walker. No signs of distress, no issues * Sean Alvarez RN - 10/13/2018 8:50 PM CDT Pt states he began feeling light headed and took his seizure stuff went to sleep. Woke up thinking he had a seizure. States hx of seizures that present with light headedness and feeling off. Pt remembers the seizure activity and denies voiding during * Eliane Tai MD - 10/13/2018 8:46 PM CDT ED Attending Note Interval History: Bi Tabor is a 58 year oldmale with a past medical history of HTN, CVA, and seizures who is presenting to the ED c/o seizure that occurred prior to arrival. Patient states that he felt dizzy and took a Gabapentin prior to napping. He reports that he believes he may have had a seizure, has notbeen taking Gabapentin or Keppra as prescribed (BID instead of TID). Patient states that his seizure was similar to prior seizures, denies falls or hitting his head. Patient is asymptomatic at this time with no complaints. His last seizure was 1 month ago. Patient denies abdominal pain, nausea, vomiting, diarrhea, headache, chest pain, shortness of breath, fever, chills, neck pain, back pain, or vision changes. Patient has no other medical complaints at this time. He has an appointment with hisNeurologist on 10/26. Patient is a smoker. Past Medical History: Diagnosis Date ??? CVA [...] myalgia Skin: Negative for rash, itching Neurological: +seizure Negative for OROPEZA, dizziness, weakness, numbness, tingling Psychiatric: Negative for SI, hallucinations, anxiety Vitals: 10/13/18 1646 10/13/18 2035 BP: 135/84 150/88 Pulse: 90 Resp: 16 Temp: 98.1 ??F (36.7 ??C) SpO2: 99% Weight: 72.6 kg (160 lb) Height: 1.803 m (5' 11 ) Exam: Constitutional: well developed, well nourished, no acute distress HENT: normocephalic, atraumatic, moist oral mucosa, conjunctiva normal Eyes: PERRL, EOMi Neck: supple, normal ROM Cardiovascular: regular rate and rhythm, no murmur Respiratory: clear to auscultation bilaterally, no wheezes, no respiratory distress Abdomen: soft, non-tender, non-distended Genitourinary: deferred Musculoskeletal: no edema or deformities Skin: warm, dry, no lesions Neurological: awake, alert&Ox4, moving all extremities, no focal motor/sensation deficits. Psychiatric: mood and affect normal Medical Decision Makin. Possible Seizure Assessment/Plan: Exam, discharge. Results: Labs Reviewed - No data to display No orders to display ED course: The patient's Oxygen Saturation Monitor was interpreted by me. The reading was 99%. The patient wason room air at the time of the reading. This is interpreted as normal. 9:07 PM: Seizure typical of previous seizures. Patient endorses not taking mediations as prescribed, likely etiology of seizure. No further workup indicated at this time. Patient has follow up with Neurology in 2 weeks. I have reviewed his diagnostic findings and he has had an opportunity to ask meany questions he has about care, diagnosis and [...] Orders and Medicine administered during this encounter: No orders of the defined types were placed in this encounter. Medications - No data to display Clinical Impression: 1. Seizure Disposition: Discharged Follow Up: Follow-up Information Follow up with [facility]. Specialty: Emergency Room Contact information: [address] [facility] [address] Please follow up. Why: Your Neurologist as scheduled on 10/26 at 10:00AM Scripts: New Prescriptions No medications on file By signing my name below, IAll, attest that this documentation has been prepared underthe direction and in the presence of Dr. Tai. Signed: Laisha Hudson. I, Dr. Tai, personally performed the services described in this documentation. All medical record entries made by the scribe were at my direction and in my presence. I have reviewed the chart and agree that the record reflects my personal performance and is accurate and complete. * Sean Alvarez RN - 10/13/2018 8:10 PM CDT Pt not in room at this time * Rupa Thompson PA-C - 10/13/2018 4:46 PM CDT Medical Screening Exam 10/13/2018 4:47 PM I have reviewed the patient's chief complaint, onset of chief complaints, vital signs, level of distress, allergies, current medications, immunization status, as well as completed a focused localizedexam. I have completed a focused limited exam, further evaluation will be necessary in the emergency department to determine if an emergency medical condition exists. This plan has been articulated to the patient/family. Vitals: 10/13/18 1646 BP: 135/84 Pulse: 90 Resp: 16 Temp: 98.1 ??F (36.7 ??C) SpO2: 99% Weight: 72.6 kg (160 lb) Height: 1.803 m (5' 11 ) Patient Evaluated: Patient was feeling lightheaded and dizzy so he took a gabapentin then napped. Convinced he had a seizure, unwitnessed. Denies tongue biting or urination. Reports hx of seizure, onmedications. No recent changes. Has an appt with Neurologist on 10/26/18 for EEG. NAD, RRR, CTAB, CNII-XII intact, no pronator drift. Sensation intact to light touch. documented in this encounter Plan of Treatment Upcoming Encounters Date Type Department Care Team (Late st Contact Info) Description 12/05/2024 1:00 PM CDT Office Visit [facility] - Neurology [address] [place] [address], [place] [phone] Sean Raymundo DO [address] [place] [address] [place] [phone] documented as of this encounter Visit Diagnoses Diagnosis Seizure (HCC) Other convulsions documented in this encounter Care Teams Mailing Section Clerk Relationship Specialty Start Date End Date Misael Maradiaga DO PCP - General 10/03/17 09/15/20 Elizabeth Sullivan RN Director Of Outpatient Services 10/14/17 documented as of this encounter
--- OUTSIDE RECORDS SUMMARY | 2024-06-08 05:44 | XMS_ITS | Encounter Summary ---
Author Organization [facility] Health Address [address] [facility] [place] [address] Care Team Providers Care Compressed Gas Tester Name Role Phone Misael Maradiaga DO Primary Care Provider Elizabeth Sullivan RN Unavailable [phone] Reason for Referral * Radiology Services (Routine) - Closed Specialty Diagnoses / Procedures Referred By Contac t Referred To Contact MRI Diagnoses Gait instability Neck pain Osteoarthritis of cervical spine with myelopathy Procedures MRI CERVICAL SPINE WO CONTRAST Ck Feliciano MD [facility] [place] [address] [facility] [address] [place] [address] Referral ID Status Reason Start Date Expiration Date Visits Re quested Visits Authorized [id number] Closed 01/17/2018 07/16/2018 2 2 Reason for Visit * Radiology Services (Routine) - Closed Specialty Diagnoses / Procedures Referred By Contac t Referred To Contact MRI Diagnoses Gait instability Neck pain Osteoarthritis of cervical spine with myelopathy Procedures MRI CERVICAL SPINE WO CONTRAST Ck Feliciano MD [address] [facility] [address] [place] [address] [facility] Mri [address] [place] [address] Referral ID Status Reason Start Date Expiration Date Visits Re quested Visits Authorized [id number] Closed 01/17/2018 07/16/2018 2 2 Encounter Details Date Type Department Care Team (Latest Contact Info) Description 02/13/2018 10:04 AM CDT - 02/13/2018 11:59 PM CDT Hospital Encounter [facility] MRI [address] [place] [address] Ck Feliciano MD [address] [place] [address] Discharge Disposition: Home or Self [...] No 10/15/2017 documented as of this encounter Medications at Time of Discharge Medication Sig Dispensed Refills Start Date End Date amLODIPine (NORVASC) 5 MG tabletIndications:Hyper tension, unspecified type Take 1 tablet by mouth once daily 30 tablet 5 01/09/2018 06/10/2018 aspirin (ASPIRIN) 81 MG chew tablet Take 1 tablet by mouth once daily 30 tablet 5 01/09/2018 06/10/2018 clonazePAM (KLONOPIN) 0.5 MG tabletIndications:Epile psy with seizures of localized onset (HCC) Take 1 tablet by mouth every 8 hours as needed (After a seizure to prevent clustering. Please call the office if seizures occur.) 20 tablet 2 01/09/2018 04/11/2018 Cyanocobalamin (B-12) 1000 MCGIndications:Vitamin B12 deficiency Take 1 mg by mouth once daily 30 capsule 5 01/09/2018 04/11/[address] (DEPAKOTE) 250 MG tablet Take 3 tablets by mouth 2 times daily for 30 days 180 tablet 01/30/2018 03/01/2018 folic acid (FOLVITE) 1 MG tabletIndications:Folat e deficiency Take 1 tablet by mouth once daily 30 tablet 5 01/09/2018 04/11/2018 gabapentin (NEURONTIN) 300 MG capsuleIndications:Epil epsy with seizures of localized onset (HCC) Take 1 capsule by mouth 3 times daily 90 capsule 5 01/09/2018 04/11/2018 levETIRAcetam (KEPPRA) 750 MG tabletIndications:Epile psy with seizures of localized onset (HCC) Take 3 tablets by mouth 2 times daily 180 tablet 5 01/09/2018 04/11/2018 thiamine (VITAMIN B-1) 100 MG tabletIndications:Lucia ine deficiency Take 1 tablet by mouth once daily 30 tablet 5 01/09/2018 04/11/2018 documented as of this encounter Plan of Treatment Upcoming Encounters Date Type Department Care Team (Late st Contact Info) Description 12/05/2024 1:00 PM CDT Office Visit [facility] - Neurology [address] [place] [address], [facility] [place] [phone] Sean Raymundo, [address] [place] [address] [place] [phone] documented as of this encounter Procedures Procedure Name Priority Date/Time Associated Diagnosis Comments MRI CERVICAL SPINE WO CONTRAST Routine 02/13/2018 10:54 AM CDT Gait instability Neck pain Osteoarthritis of cervical spine with myelopathy documented in this encounter Results * MRI CERVICAL SPINE [...] documented in this encounter Visit Diagnoses Diagnosis Gait instability Abnormality of gait Neck pain Cervicalgia Osteoarthritis of cervical spine with myelopathy documented in this encounter Care Teams Compressed Gas Tester Relationship Specialty Start Date End Date Misael Maradiaga DO PCP - General 10/03/17 09/15/20 Elizabeth Sullivan, RN Bass [employer] Winder 10/14/17 documented as of this encounter
--- OUTSIDE RECORDS SUMMARY | 2024-06-08 05:44 | XMS_ITS | Encounter Summary ---
Author Organization [facility] Health Address [address] [facility] [place] [address] Care Team Providers Care Pipe Out Worker Name Role Phone Unavailable Primary Care Provider Unavailabl e Encounter Details Date Type Department Care Team (Latest Contact Info) Description 05/07/2015 Hospital Outpatient Visit [facility] [address] [place] [address] Discharge Disposition: Home or Self Care Social History Tobacco Use Types Packs/Day Years Used Date Smoking Tobacco: Never Assessed Sex and Gender Information Value Date Recorded Sex Assigned at Not on file Gender Identity Not on file Sexual Orientation Not on file documented as of this encounter Plan of Treatment Upcoming Encounters Date Type Department Care Team (Late st Contact Info) Description 12/05/2024 1:00 PM CDT Office Visit [facility] - Neurology [address] [place] [address], [facility] [place] [phone] Sean Raymundo, DO [address] [place] [address] [place] [phone] documented as of this encounter Procedures Procedure Name Priority Date/Time Associated Diagnosis Comments CT CERVICAL SPINE WO CONTRAST STAT 05/07/2015 9:[address] HEAD WO CONTRAST STAT 05/07/2015 9 :51 PM BELT CLEANER documented in this encounter Results * CT CERVICAL SPINE WO CONTRAST (05/07/2015 9:51 PM BELT CLEANER) Anatomical Region Laterality Modality Spine Other Impressions 05/08/2015 6:56 AM BELT CLEANER IMPRESSION: 1. No acute intracranial process. 2. No evidence of acute fracture in the cervical spine. Preliminary results reported by Dr. Bales on 05/07/2015 10:04 PM. This report was electronically signed by TIM CUNNINGHAM M.D. ??on 05/08/2015 6:56 AM . Narrative 05/08/2015 6:56 AM BELT CLEANER EXAMINATION: 1. Computed tomography (CT) of the head without contrast 2. CT of the cervical spine without contrast HISTORY: Seizure. TECHNIQUE: CT of the head and cervical spine were performed without contrast according to standard protocol. FINDINGS: No prior study is available for comparison. Head: Soft tissue swelling/hematoma overlies the right frontal bone. No acute intra- or extra-axial fluid collections are identified. Diffuse cerebral volume loss with mild ex vacuo enlargement of the lateral ventricles. Periventricular white matter hypoattenuation is present which is nonspecific but can be seen in setting of small vessel ischemic disease. No focal area of encephalomalacia in the right occipital lobe is present, unchanged. Old lacunar infarctions in the thalami are noted. The orbits appear normal. Mild mucosal thickening in the paranasal sinuses. The mastoid air cells are clear. Old left medial orbital wall fracture. No acute fracture is identified. Focal soft tissue lesion in the left occipital region is unchanged. Cervical spine: There is reversal of the normal cervical lordosis centered at C6. Moderate degenerative changes present in the cervical spine most pronounced at C6-7. Mild retrolisthesis at C6-7. Mild degenerative changes at the craniocervical junction. No acute fracture is identified. Scarring is noted at the lung apices bilaterally. Multilevel facet and uncovertebral joint arthropathy with varying degrees of neural foraminal stenosis. Up to moderate central canal stenosis at C6-7. Procedure Note Tim Cunningham MD - 08/27/2017 EXAMINATION: 1. Computed tomography (CT) of the head without contrast 2. CT of the cervical spine without contrast HISTORY: Seizure. TECHNIQUE: CT of the head and cervical spine were performed withoutcontrast according to standard protocol. FINDINGS: No prior study is available for comparison. Head: Soft tissue swelling/hematoma overlies the right frontal bone. No acuteintra- or extra-axial fluid collections are identified. Diffuse cerebralvolume loss with mild ex vacuo enlargement of the lateral ventricles.Periventricular white matter hypoattenuation is present which is nonspecific but can be seen in settingof small vessel ischemic disease. No focal area of encephalomalacia in theright occipital lobe is present, unchanged. Old lacunar infarctions in thethalami are noted. The orbits appear normal. Mild mucosal thickening in the paranasal sinuses. Themastoid air cells are clear. Old left medial orbital wall fracture. Noacute fracture is identified. Focal soft tissue lesion in the leftoccipital region is unchanged. Cervical spine: There is reversal of the normal cervical lordosis centered at C6. Moderatedegenerative changes present in the cervical spine most pronounced atC6- 7. Mild retrolisthesis at C6-7. Mild degenerative changes at thecraniocervical junction. No acute fracture is identified. Scarring is noted at the lung apices bilaterally.Multilevel facet and uncovertebral joint arthropathy with varying degreesof neural foraminal stenosis. Up to moderate central canal stenosis atC6-7. IMPRESSION IMPRESSION: 1. No acute intracranial process. 2. No evidence of acute fracture in the cervical spine. Preliminary results reported by Dr. Bales on 05/07/2015 10:04 PM. This report was electronically signed by TIM CUNNINGHAM M.D. on 05/08/20156:56 AM . Jessie Nolasco MD CT ORDERABLES * CT HEAD WO CONTRAST (05/07/2015 9:51 PM BELT CLEANER) Anatomical Region Laterality Modality Head Other Impressions 05/08/2015 6:56 AM BELT CLEANER IMPRESSION: 1. No acute intracranial process. 2. No evidence of acute fracture in the cervical spine. Preliminary results reported by Dr. Bales on 05/07/2015 10:04 PM. This report was electronically signed by TIM CUNNINGHAM M.D. ??on 05/08/2015 6:56 AM . Narrative 05/08/2015 6:56 AM BELT CLEANER EXAMINATION: 1. Computed tomography (CT) of the head without contrast 2. CT of the cervical spine without contrast HISTORY: Seizure. TECHNIQUE: CT of the head and cervical spine were performed without contrast according to standard protocol. FINDINGS: No prior study is available for comparison. Head: Soft tissue swelling/hematoma overlies the right frontal bone. No acute intra- or extra-axial fluid collections are identified. Diffuse cerebral volume loss with mild ex vacuo enlargement of the lateral ventricles. Periventricular white matter hypoattenuation is present which is nonspecific but can be seen in setting of small vessel ischemic disease. No focal area of encephalomalacia in the right occipital lobe is present, unchanged. Old lacunar infarctions in the thalami are noted. The orbits appear normal. Mild mucosal thickening in the paranasal sinuses. The mastoid air cells are clear. Old left medial orbital wall fracture. No acute fracture is identified. Focal soft tissue lesion in the left occipital region is unchanged. Cervical spine: There is reversal of the normal cervical lordosis centered at C6. Moderate degenerative changes present in the cervical spine most pronounced at C6-7. Mild retrolisthesis at C6-7. Mild degenerative changes at the craniocervical junction. No acute fracture is identified. Scarring is noted at the lung apices bilaterally. Multilevel facet and uncovertebral joint arthropathy with varying degrees of neural foraminal stenosis. Up to moderate central canal stenosis at C6-7. Procedure Note Tim Cunningham MD - 08/27/2017 EXAMINATION: 1. Computed tomography (CT) of the head without contrast 2. CT of the cervical spine without contrast HISTORY: Seizure. TECHNIQUE: CT of the head and cervical spine were performed withoutcontrast according to standard protocol. FINDINGS: No prior study is available for comparison. Head: Soft tissue swelling/hematoma overlies the right frontal bone. No acuteintra- or extra-axial fluid collections are identified. Diffuse cerebralvolume loss with mild ex vacuo enlargement of the lateral ventricles.Periventricular white matter hypoattenuation is present which is nonspecific but can be seen in settingof small vessel ischemic disease. No focal area of encephalomalacia in theright occipital lobe is present, unchanged. Old lacunar infarctions in thethalami are noted. The orbits appear normal. Mild mucosal thickening in the paranasal sinuses. Themastoid air cells are clear. Old left medial orbital wall fracture. Noacute fracture is identified. Focal soft tissue lesion in the leftoccipital region is unchanged. Cervical spine: There is reversal of the normal cervical lordosis centered at C6. Moderatedegenerative changes present in the cervical spine most pronounced atC6- 7. Mild retrolisthesis at C6-7. Mild degenerative changes at thecraniocervical junction. No acute fracture is identified. Scarring is noted at the lung apices bilaterally.Multilevel facet and uncovertebral joint arthropathy with varying degreesof neural foraminal stenosis. Up to moderate central canal stenosis atC6-7. IMPRESSION IMPRESSION: 1. No acute intracranial process. 2. No evidence of acute fracture in the cervical spine. Preliminary results reported by Dr. Bales on 05/07/2015 10:04 PM. This report was electronically signed by TIM CUNNINGHAM M.D. on 05/08/20156:56 AM . Jessie Nolasco MD CT ORDERABLES documented in this encounter Visit Diagnoses Not on filedocumented in this encounter
--- OUTSIDE RECORDS SUMMARY | 2024-06-08 05:44 | XMS_ITS | Encounter Summary ---
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 Pt has no complaints at this time. Pt has know Sz history. Encounter Details Date Type Department Care Team (Late st Contact Info) Description 10/21/2018 11:43 AM CDT - 10/21/2018 3:41 PM T Emergency [facility] EMERGENCY DEPART[facility] [address] [place] [address] Serjio Vilchis MD [address] [facility] [place] [address] Melchor Coughlin MD [address] [facility] [place] [address] Seizure (HCC) (Primary Dx) Discharge Disposition: Home or Self Care Social [...] Sign Reading Time Taken Comments Blood Pressure 132/84 10/21/2018 1:45 PM CDT Pulse 84 10/21/2018 1:45 PM CDT Temperature 37.1 ??C (98.7 ??F) 10/21/2018 11:45 AM C DT Respiratory Rate 18 10/21/2018 1:45 PM CDT Oxygen Saturation 99% 10/21/2018 1:45 PM CDT Inhaled Oxygen Concentration - - Weight 70.3 kg (155 lb) 10/21/2018 11:45 AM CDT Height 180.3 cm (5' 11 ) 10/21/2018 11:45 AM CDT Body Mass Index 21.62 10/21/2018 11:45 AM CDT documented in this encounter Functional [...] * Discharge Instructions* Sean Martinez MD - 10/21/2018 3:29 PM CDT Images from the original note were not included. -TAKE KEPPRA 750 MG 3 TABLETSS (TOTAL 2250 mg) EVERY 8 HOURS -TAKE DEPAKOTE 500 MG TWICE A DAY -TAKE OXCARBAZEPINE 1.5 TABLETS (TOTAL 450 MG) TWICE A DAY -TAKE CLONAZEPAM 0.5 MG TWICE A DAY NEEDED ONLY IF YOU HAVE A SEIZURE -TAKE GABAPENTIN 300 THREE TIMES A DAY FOR PAIN -NEUROLOGY WILL CALL YOU FOR FOLLOW UP THIS WEEK -RETURN TO ER IF YOU HAVE MORE SEIZURES. Epilepsy WHAT YOU NEED TO KNOW: Epilepsy is a brain disorder that causes seizures. It is also called a seizure disorder. A seizure means an abnormal area in your brain sometimes sends bursts of electrical activity. A seizure may start in one part of your brain, or both sides may be affected. Depending on the type of seizure, you may have movements you cannot control, lose consciousness, or stare straight ahead. You may be confused or tired after the seizure. A seizure may last a few seconds or longer than 5 minutes. A defect, tumor, stroke, dementia, injury, or infection may cause epilepsy. The cause of your epilepsy may not be known. If your seizures are not controlled, epilepsy may become life-threatening. DISCHARGE INSTRUCTIONS: Call your local emergency number (911 in the ), or have someone else call, for any of the following: ?? Your seizure lasts longer than 5 minutes. ?? You have trouble breathing after a seizure. ?? You have diabetes or are and have a seizure. ?? You have a seizure in water, such as a swimming pool or bathtub. Call your doctor if: ?? You have a second seizure within 24 hours of the first. ?? You are injured during a seizure. ?? You feel you are not able to cope with your condition. ?? Your seizures start to happen more often. ?? You are confused longer than usual after a seizure. ?? You are planning to get or are currently . ?? You have questions or concerns about your condition or care. Medicines: ?? Antiseizure medicine may control or prevent another seizure. Do not stop taking this medicine. Another person may need to give you rescue medicine to stop a seizure at home. Ask your healthcare provider for more information about rescue medicine. ?? Take your medicine as directed. Contact [...] with you in case of an emergency. Follow up with your neurologist as directed: You may need tests to check the level of antiseizure medicine in your blood. Your neurologist may need to change or adjust your medicine. Write down your questions so you remember to ask them during your visits. Prevent a complication of epilepsy: ?? Sudden unexplained in epilepsy (SUDEP) is a rare complication of epilepsy. In 1 year, 1 adult in 1,000 adults with epilepsy will have this complication. The risk of SUDEP increases if you have 3 or more generalized tonic-clonic seizures in 1 year. Your risk also increases if you have nocturnal seizures (seizures during sleep). After a nocturnal seizure, your breathing can become shallow. ?? Your healthcare provider may recommend a change in medicine to decrease the number of seizures. For nocturnal seizures, he or she may recommend that someone sleep near you. The person must be older than 10 years. The person must also be close enough to know that you are having a seizure. What you can do to prevent a seizure: You may not be able to prevent every seizure. The following can help you manage triggers that may make a seizure start: ?? Take your medicine every day at the same time. This will also help prevent medicine side effects. Set an alarm to help remind you to take your medicine every day. ?? Manage stress. Stress can be a trigger for epilepsy. Exercise can help you reduce stress. Talk to your healthcare provider about exercise that is safe for you. Illness can be a form of stress. Eata variety of healthy foods and drink plenty of liquids during an illness. Talk to your healthcare provider about other ways to manage stress. ?? Set a regular sleep schedule. A lack of sleep can trigger a seizure. Try to go to sleep and wakeup at the same time every day. Keep your bedroom quiet and dark. Talk to your healthcare provider if you are having trouble sleeping. ?? Limit or do not drink alcohol [...] if you need help to quit drinking. What you can do to manage epilepsy: ?? Keep a seizure diary. This can help you find your triggers and avoid them. Write down the dates of your seizures, where you were, and what you were doing. Include how you felt before and after. Possible triggers include illness, lack of sleep, hormonal changes, alcohol, drugs, lights, or stress. ?? Record any auras you have before a seizure. An aura is a sign that you are about to have a seizure. Auras happen before certain types of seizures that are in only 1 part of the brain. The aura mayhappen seconds before a seizure, or up to an hour before. You may feel, see, hear, or smell something. Examples include part of your body becoming hot. You may see a flash of light or hear something. You may have anxiety or d??j?? vu. If you have an aura, include it in your seizure diary. ?? Create a care plan. Tell family, friends, and coworkers about your epilepsy. Give them instructions that tell them how they can keep you safe if you have a seizure. ?? Find support. You may be referred to a psychologist or social media strategist. Ask your healthcare provider about support groups for people with epilepsy. ?? Ask what safety precautions you should [...] you have a seizure in water. ?? Carry medical alert identification. Wear medical alert jewelry or carry a card that says you have epilepsy. Ask your healthcare provider where to get these items. How others can keep you safe during a seizure: Give the following instructions to family, friends, and coworkers: ?? Do not panic. ?? Do not hold me down or put anything in my mouth. ?? Gently guide me to the floor or a soft surface. ?? Place me on my side to [...] or drink until I am fully awake. ?? Copyright [employer] 2019 Information is for End User's use only and may not be sold, redistributed or otherwise used for commercial purposes. All illustrations and images included in CareNotes?? are the copyrighted property of [employer]. or [employer] The above information is an legislative aide only. It is not intended as [...] 1 tablet by mouth 2 times daily as needed for Anxiety 60 tablet 10/21/2018 10/26/2018 Cyanocobalamin (B-12) 1000 MCGIndications:Vitamin B12 deficiency Take 1 mg by mouth once daily 30 capsule 8 04/11/2018 10/26/[address] (DEPAKOTE) 500 MG tablet Take 1 tablet by mouth 2 times daily for 30 days 60 tablet 10/21/2018 10/26/[address] (DEPAKOTE) 500 MG tabletIndications:Parti [...] 8 04/11/2018 10/26/2018 gabapentin (NEURONTIN) 300 MG capsule Take 1 capsule by mouth 3 times daily for 30 days 90 capsule 10/21/2018 10/26/2018 gabapentin (NEURONTIN) 300 MG capsuleIndications:Part ial [...] tablet 10/10/2018 10/26/2018 levETIRAcetam (KEPPRA) 750 MG tablet Take 3 tablets by mouth every 8 hours for 30 days 260 tablet 10/21/2018 10/26/2018 levETIRAcetam (KEPPRA) 750 MG tabletIndications:Parti al 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, intractable, without status epilepticus (HCC) Take 3 tablets by mouth 2 times daily for 30 days 180 tablet 06/10/2018 01/14/2023 OXcarbazepine (TRILEPTAL) 300 MG tablet Take 1 tablet by mouth 2 times daily for 30 days 60 tablet 10/21/2018 10/26/2018 OXcarbazepine (TRILEPTAL) 300 MG tabletIndications:Parti al 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, intractable, without status epilepticus (HCC) Take 1.5 tablets by mouth 2 times daily 90 tablet 11 08/09/2018 10/26/2018 thiamine (VITAMIN B-1) 100 MG tabletIndications:Lucia ine deficiency Take 1 tablet by mouth once daily 30 tablet 8 04/11/2018 10/26/2018 documented as of this encounter Consult Notes * Germain Cardoza MD - 10/21/2018 1:54 PM CDTAssociated Order(s): IP CONSULT TO NEUROLOGY Neurology Consult Note/History & Physical Patient: Bi Tabor Age: [age] year old Admission Date and Time: 10/21/2018 Reason for consult/Chief Complaint: Seizure management History of Presenting Illness: Bi Tabor is a 58 year old male with pmh of seizure since age 50 after having a stroke, HTN and stroke presents to ED for possible seizure and neurology was consulted for management of his seizure medication 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 He remained awake and alert whole time, and denies having anyjerking movement in his face or limbs. He was able to walk at the samr time. Then he called 911 through pressing a bottom in an grace in his smart phone and [facility] for seizure management. He mentioned that he has two type of seizure, 1- small seizure as dizziness, light headedness or gait imbalance that happens every one to three weeks especially if forgets to take his medication and 2- major seizure as tonic clonic generalized seizure with tongue biting and it happens infrequently one to 3 time per year. Last time it happened a while ago. He was admitted with the same presentation plus imbalance on 09/06 and his w/u was negative at that time. Of note, he follows Dr Feliciano, for his seizure, last recommendation for dosing and frequency of his seizure medications was in 07/2018 as follow: Keppra 750 mg tablet 3 tablet q 8 hours Oxcarbamazepine 300 mg tablet 1.5 tablet bid Depakote 500 MG BID Gabapentin 300 mg tid , but it is for management of the pain Clonazepam 0.5 mg prn However, he showed me his medicine bag, and per order on medicine bottle he has been taking wrong dosing and frequency as bellow Keppra 750 mg tablet 2 tablet every 12 hs Keppra 1000 mg tablet 2 tablet every 12 hs Oxcarbamazepine 300 mg tablet 1.5 tablet bid Depakote 500 MG BID Gabapentin 300 mg tid , but it is for management of the pain There was no depakote at his medicine bag, but told me takes two big pills of 500 mg twice a day Past Medical History No history on file. Past Medical History: Diagnosis Date ??? CVA (cerebral vascular accident) ??? HTN (hypertension) ??? Seizure No past surgical history on file. Allergies No Known Allergies Family History No family history on file. Social History Social History Social History Narrative Review of Systems General - Denies changes [...] abnormalities Neurological - See HPI Objective: BP 129/82 Pulse 88 Temp 98.7 ??F (37.1 ??C) Resp 16 Ht 5' 11 Wt 155 lb SpO2 98% BMI 21.62 kg/m2 Temp (30hrs) Max:98.7 ??F (37.1 ??C) Body mass index is 21.62 kg/(m^2). Exam: General: Con - NAD, afebrile Heent - NCAT, PERRLA, MMM, anicteric Neck [...] Pinprick Symmetric and intact bilaterally Temperature Not tested Vibration Not tested Cerebellar FNF FREEDOM HKS Right Intact Deferred Intact Left Intact Deferred Intact Gait Deferred Labs: Recent Results (from the past 24 hour(s)) COMPREHENSIVE METABOLIC PANEL Collection Time: 10/21/18 12:31 PM Result Value Ref Range BUN 12 7 - 26 mg/dL Creatinine 1.0 0.6 - 1.2 mg/dL Sodium 141 136 - 145 mmol/L Potassium 3.9 3.5 - 4.5 mmol/L Chloride 106 98 - 107 mmol/L CO2 25 22 - 29 mmol/L Glucose 91 70 - 115 mg/dL Calcium 9.5 8.4 - 10.2 mg/dL Protein Total 7.0 6.0 - 8.3 g/dL Albumin 3.9 3.4 - 5.0 g/dL Bilirubin Total 0.4 0.2 - 1.2 mg/dL Alkaline Phosphatase 53 40 - 150 Units/L ALT 8 0 - 55 Units/L AST 15 5 - 34 Units/L Anion Gap 14 8 - 18 BUN/Creatinine Ratio 12 7 - 23 Osmolality Calculated 291 270 - 300 mOsm/kg Albumin/Globulin Ratio 1.3 1.1 - 2.3 eGFR >60 >60 mL/min/1.73 m2 CBC W AUTO DIFFERENTIAL Collection Time: 10/21/18 12:31 PM Result Value Ref Range WBC 5.9 3.5 - 10.5 10??3/uL RBC 4.52 4.30 - 5.70 10??6/uL Hemoglobin 14.9 13.5 - 17.5 g/dL Hematocrit 43.6 39.0 - 50.0 % MCV 96.5 81.0 - 97.0 fL MCH 33.0 28.0 - 34.0 pg MCHC 34.2 32.0 - 36.0 g/dL Platelet Count 131 (L) 150 - 400 10??3/uL RDW-SD 42.5 36.0 - 50.0 fL RDW-CV 11.9 11.2 - 14.8 % MPV 11.4 9.3 - 12.8 fL nRBC Absolute 0.00 0 10??3/uL nRBC Auto 0.0 0 /100 WBC Neutrophils % 56.8 35.0 - 70.0 % Lymphocytes % 32.0 19.7 - 55.1 % Monocytes % 7.1 3.0 - 15.0 % Eosinophils % 3.5 0.0 - 6.0 % Basophil % 0.3 0.0 - 1.5 % Neutrophils Absolute 3.4 1.6 - 7.0 10??3/uL Lymphocyte Absolute 1.9 0.8 - 2.9 10??3/uL Monocytes Absolute 0.42 0.14 - 0.66 10??3/uL Eosinophils Absolute 0.21 0.00 - 0.45 10??3/uL Basophils Absolute 0.02 0.00 - 0.06 10??3/uL Immature Granulocytes % 0.3 0.0 - 1.0 % MAGNESIUM BLOOD Collection Time: 10/21/18 12:31 PM Result Value Ref Range Magnesium 1.8 1.6 - 2.6 mg/dL PHOSPHORUS BLOOD Collection Time: 10/21/18 12:31 PM Result Value Ref Range Phosphorus 2.9 2.3 - 4.7 mg/dL TROPONIN I Collection Time: 10/21/18 12:31 PM Result Value Ref Range Troponin I 0.012 <0.032 ng/mL VALPROIC ACID LEVEL Collection Time: 10/21/18 12:31 PM Result Value Ref Range Valproic Acid Total 73 50 - 100 mcg/mL Assessment and Recommendations: a 58 year old male with pmh of seizure since age 50 after having a stroke, HTN and stroke presents to ED for possible seizure and neurology was consulted for management of his seizure medication 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 He remained awake and alert whole time, and denies having anyjerking movement in his face or limbs. He was able to walk at the samr time. Then he called 911 through pressing a bottom in an grace in his smart phone and [employer] for seizure management. He mentioned that he has two type of seizure, 1- small seizure as dizziness, light headedness or gait imbalance that happens every one to three weeks especially if forgets to take his medication and 2- major seizure as tonic clonic generalized seizure with tongue biting and it happens infrequently one to 3 time per year. Last time it happened a while ago. He was admitted with the same presentation plus imbalance on 09/06 and his w/u was negative at that time. Recommendations: 1) seizure precaution The patient seizure medication should be as follow 1) keppra 750 mg three tablets every eight hours (total 2250 mg tid) He has two different dose of keppra tablet in his medication bag, I told him that please do not take 1000 mg tablets. Please remove 1000 mg tablet from his pharmacy list 2) Depakote DR 500 mg tablet one tablet bid 3) oxcarbamazepine 300 mg tablet 1.5 tablet bid (total 450 mg bid) 4) clonazepam 0.5 mg prn He also takes Gabapentin 300 mg tid for pain control not for seizure. However, Gabapentin withdrawal can cause seizure. Please make sure that the patient has enough Gabapentin pills at home and knowsthe right daily dosing is 300 mg every eight hours 5) he would be ok to discharge home. we will send a message to Dr Feliciano, and will let him know about the patient and will make a new appointment with Dr Feliciano Discussed with Attending Physician Dr. Wandy Cardoza MD Neurology Resident Associated attestation - Verito Saba MD - 10/22/2018 8:19 AM CDT Attending note: Pt was seen and evaluated by the resident but not by myself. Resident discussed this patient on thephone. Based on the information received, I do agree with the plan. Thank you for the consultation. Verito Saba M.D documented in this encounter ED Notes * Elmo Connors RN - 10/21/2018 3:41 PM CDT Discharge instructions and prescriptions given to patient. Patient denies questions. Iv removed without complications. Patient ambulated to [facility]. * Melchor Coughlin MD - 10/21/2018 2:55 PM CDT Transition of Care EMERGENCY MEDICINE ATTENDING NOTE Patient care assumed from Dr. Vilchis at 3:00 PM. Please see their note for further details. Briefly, Bi Tabor is a 58 year old male who is being evaluated for seizures. The patient stated that he felt a seizure coming on took an assortment of medication. Neurology has given medicaiton recommendations and follow up for patient and has cleared for discharge. At this time the patient's condition is Stable. Thus far, studies reveal: - LABS: Labs Reviewed CBC W AUTO DIFFERENTIAL - Abnormal; Notable for the following: Result Value Platelet Count 131 (*) All other components within normal limits COMPREHENSIVE METABOLIC PANEL - Normal MAGNESIUM BLOOD - Normal PHOSPHORUS BLOOD - Normal TROPONIN I - Normal URINALYSIS REFLEX TO MICROSCOPIC NO CULTURE - Normal VALPROIC ACID LEVEL - Normal DRUG SCREEN TOX URINE PANEL - Normal Narrative: The Urine Toxicology Screening Panel does not screen for Propoxyphene, Meprobamate, Carisoprodol, Trazodone, egrk-vqb-jlrhtlx medications and/or volatiles (Acetone, Isopropanol, Methanol or Ethylene Glycol). Ethanol, Salicylate, Acetaminophen, Tricyclic Antidepressants and several therapeutic drugsmay be individually assayed in serum or plasma specimen. Toxicology testing by the [facility] is an aid to medical diagnosisand treatment of patients. No documented chain of custody was maintained. Results are intended to be used for clinical purposes only. LEVETIRACETAM LEVEL OXCARBAZEPINE BLOOD ALCOHOL ETHYL BLOOD - IMAGING: No orders to display No results found. PENDING: Neurology clearance for d/c. PLAN: likely discharge. Vitals: 10/21/18 1145 10/21/18 1345 BP: 129/82 132/84 Pulse: 88 84 Resp: 16 18 Temp: 98.7 ??F (37.1 ??C) SpO2: 98% 99% Weight: 70.3 kg (155 lb) Height: 1.803 m (5' 11 ) ED Course and Re-Evaluations: 3:41 PM: Neurology has cleared patient for discharge. Patient reports that he is feeling better. I have reviewed his diagnostic findings and he has had an opportunity to ask me any questions he has about care, diagnosis and discharge plan. Patient is comfortable with the discharge plan. He will follow up as directed and will return to the ER if his condition worsens or he develops other urgent concerns. Clinical Impression: 1. Seizure 2. Partial 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, intractable, without status epilepticus Disposition: Discharge By signing my name below, I, Rosa Flores, attest that this documentation has been prepared under the direction and in the presence of Dr. Melchor Coughlin. Signed: Laisha Montano. Date: 10/21/2018. Time:5:23 PM. Melchor Coughlin MD Emergency Medicine 10/21/2018 5:23 PM * Serjio Vilchis MD - 10/21/2018 12:20 PM CDT ED ATTENDING NOTE History: Bi Tabor is a 58 year old male with a past medical history of CVA, HTN, and seizure who is presenting to the ED s/p seizure-like episode. Pt states he was laying on bed when he began to feel light-headed and diaphoretic which he describes as his pre-seizure symptoms. He says that at that time he took a gabapentin tablet 500 mg, one keppra 1000 mg, and another medication that he is unsure of the name. Pt states he did not lose consciousness, fall, or hit his head. Says he had a headache after this episode but it has since resolved. Denies chest pain, shortness of breath, or headache currently. Pt called EMS himself and was ambulatory after seizure-like episode. Currently has no complai nts. Pt states his medications cause him to become nauseated. States he takes Keppra 750 mg x2 TID and Keppra and 2x Keppra 1000 mg BID as well as gabapentin 500 mg, clonazepam, and depakote. Denies alcohol or drug use for the past 3 years. No other questions or complaints at this [...] on file Social History Narrative Review of Systems Constitutional: Positive for diaphoresis. Negative for fever. HENT: Negative for congestion and sore throat. Eyes: Negative for blurred vision and double vision. Respiratory: Negative for cough and shortness of breath. Cardiovascular: Negative for chest pain and palpitations. Gastrointestinal: Negative for abdominal pain, diarrhea, nausea and vomiting. Genitourinary: Negative for dysuria. Musculoskeletal: Negative for back pain and neck pain. Neurological: Positive for weakness. Negative for dizziness and headaches. + light-headedness Psychiatric/Behavioral: Negative for suicidal ideas. Vitals: 10/21/18 1145 BP: 129/82 Pulse: 88 Resp: 16 Temp: 98.7 ??F (37.1 ??C) SpO2: 98% Weight: 70.3 kg (155 lb) Height: 1.803 m (5' 11 ) Physical Exam Constitutional: He is oriented to person, place, and time. He appears well- developed and well-nourished. HENT: Head: Normocephalic and atraumatic. Eyes: Pupils are equal, round, and reactive to light. EOM are normal. Neck: Normal range of motion. Neck supple. Cardiovascular: Normal rate and regular rhythm. Pulmonary/Chest: Effort normal and breath sounds normal. Abdominal: Soft. Bowel sounds are normal. There is no tenderness. Musculoskeletal: Normal range of motion. He exhibits no edema or deformity. Neurological: He is alert and oriented to person, place, and time. Mental Status: awake, alert, orientedx3 Higher cerebral function: speech-non aphasic Cranial Nerves: II-XII intact. Motor Function: Bilateral upper and lower extremities- 5/5 Sensation Function: Bilateral upper and lower extremities- normal to light touch Coordination: Normal finger to nose bilaterally Skin: Skin is warm and dry. Psychiatric: He has a normal mood and affect. MDM/Impression: Impression: Medication non-compliance vs seizure vs ACS vs metabolic vs alcohol vs drug use vs UTI vs other Plan: Evaluate and treat EKG Interpretation: Interpreted by me: Date: 10/21/2018 Time: 13:05 NSR with a rate of 70 bpm QTc 410, QRS 80, no ST changes ED Course: 1:31 PM Discussed all the pertinent aspects of the case with neurology who will see the patient. 2:27 PM Neurology at bedside evaluating pt at this time. 3:00 PM Signed out to Dr. Coughlin, pending neurology recommendations Diagnosis: 1. Pseudo-seizure Disposition: SO to Dr. Coughlin By signing my name below, I, Shane [...] performance and is accurate and complete. * Tamie Keys RN - 10/21/2018 11:43 AM CDT Bed: 3 Expected date: Expected time: Means of arrival: Comments: Male, seizure, hx of seizures documented in this encounter Plan of Treatment Upcoming Encounters Date Type Department Care Team (Late st Contact Info) Description 12/05/2024 1:00 PM CDT Office Visit [facility] - Neurology [address] [place] [phone] Sean Raymundo, [address] [place] [address] [phone] documented as of this encounter Procedures Procedure Name Priority Date/Time Associated Diagnosis Comments CARDIAC EKG ORDER 01/11/2019 1:3 8 PM CDT URINALYSIS REFLEX TO MICROSCOPIC NO CULTURE STAT 10/21/2018 1:36 PM CDT URINE DRUG SCREEN IMMUNOASSAY STAT 10/21/2018 1:36 PM CDT EKG 12-LEAD Routine 10/21/2018 1:05 PM CDT Seizure (HCC) LEVETIRACETAM LEVEL STAT 10/21/2018 1 2:31 PM CDT OXCARBAZEPINE BLOOD STAT 10/21/2018 1 2:31 PM CDT TROPONIN I STAT 10/21/2018 12:31 PM CDT CBC W AUTO DIFFERENTIAL STAT 10/21/2018 12:31 PM CDT COMPREHENSIVE METABOLIC PANEL STAT 10/21/2018 12:31 PM CDT PHOSPHORUS BLOOD STAT 10/21/2018 12:3 1 PM CDT MAGNESIUM BLOOD STAT 10/21/2018 12:31 PM CDT VALPROIC ACID LEVEL STAT 10/21/2018 1 2:31 PM CDT documented in this encounter Results * CARDIAC EKG ORDER (01/11/2019 1:38 PM CDT) Narrative 01/11/2019 1:38 PM CDT Ordered by an unspecified provider. Scanned Document CARDIAC SERVICES ORD ERABLES * DRUG SCREEN TOX URINE PANEL (10/21/2018 1:36 PM CDT) Pathologist [facility] Amphetamines Screen Urine Negative Negative: < 1000 ng/mL 10/21/2018 2:03 PM CDT [facility] Barbiturates Screen Urine Negative Negative: < 200 ng/mL 10/21/2018 2:03 PM CDT [facility] Benzodiazepine Screen Urine Negative Negative: < 200 ng/mL 10/21/2018 2:03 PM CDT [facility] Opiates Urine Negative Negative: < 300 ng/mL 10/21/2018 2:03 PM CDT [facility] Cocaine Metabolites Urine Negative Negative: < 300 ng/mL 10/21/2018 2:03 PM CDT [facility] Phencyclidine Screen Urine Negative Negative: < 25 ng/ml 10/21/2018 2:03 PM T [facility] Cannabinoids Screen Urine Negative Negative: <50 ng/mL 10/21/2018 2:03 PM CDT [facility] Methadone Screen Urine Negative Negative: < 300 ng/mL 10/21/2018 2:03 PM T [facility] Urine URINE / Unknown Collection / Unknown 10/21/2018 1:36 PM CDT 10/21/2018 1:43 PM CDT Narrative [facility] - 10/21/2018 2:03 PM CDT The Urine Toxicology Screening Panel does not screen for Propoxyphene, Meprobamate, Carisoprodol, Trazodone, [id number] medications and/or volatiles (Acetone, Isopropanol, Methanol or Ethylene Glycol). Ethanol, Salicylate, Acetaminophen, Tricyclic Antidepressants and several therapeutic drugs may be individually assayed in serum or plasma specimen. Toxicology testing by the [facility] is an aid to medical diagnosis and treatment of patients. No documented chain of custody was maintained. Results are intended to be used for clinical purposes only. ? Sean Martinez MD LAB - URINE CHEMISTR Y ORDERABLES Performing Organization Address [facility]/State/ZIP Co de Phone Number [facility] [address] [place] [address], [facility] [phone] * URINALYSIS REFLEX TO MICROSCOPIC NO CULTURE (10/21/2018 1:36 PM CDT) Color UA Yellow Straw, Yellow, Colorless 10/21/2018 1:55 PM CDT [facility] Clarity UA Clear Clear, Slt Cloudy 10/21/2018 1:55 PM CDT [facility] Specific [place] UA 1.011 1.005 - 1.030 10/21/2018 1:55 PM CDT [facility] pH UA 7.0 5.0 - 8.0 pH 10/21/2018 1:55 PM CDT [facility] Protein UA Negative Negative mg/dL 10/21/2018 1:55 PM CDT [facility] Glucose UA Negative Negative mg/dL 10/21/2018 1:55 PM T [facility] Ketone UA Negative Negative mg/dL 10/21/2018 1:55 PM [facility] Bilirubin UA Negative Negative mg/dL 10/21/2018 1:55 PM [facility] Blood UA Negative Negative 10/21/2018 1:55 PM [facility] Nitrite UA Negative Negative 10/21/2018 1:55 PM [facility] Leukocyte Esterase Negative Negative 10/21/2018 1:55 PM [facility] Urobilinogen UA Negative Negative mg/dL 10/21/2018 1:55 PM [facility] RBC UA 0-2 None Seen, 0-2, 3-5 /HPF 10/21/2018 1:55 PM [facility] WBC UA None Seen None Seen, 0-5 /HPF 10/21/2018 1:55 PM [facility] Squamous Epithelial Cells UA None Seen None Seen, 0-2 /HPF 10/21/2018 1:55 PM [facility] Urine URINE SPECIMEN OBTAINED BY CLEAN CATCH PROCEDURE / Unknown Collection / Unknown 10/21/2018 1:36 PM CDT 10/21/2018 1:43 PM CDT Sean Martinez MD LAB - URINALYSIS ORD ERABLES [facility] [address] [place] [address] * EKG 12-LEAD (10/21/2018 1:05 PM CDT) Ventricular Rate 70 BPM [facility] MUSE Atrial Rate 70 BPM [facility] MUSE P-R Interval 154 ms [facility] MUSE QRS Duration ms 80 ms [facility] MUSE Q-T Interval ms 380 ms [facility] MUSE QTC Calculation (Bezet) 410 ms [facility] MUSE Calculated P Cable 69 degrees [facility] MUSE Calculated R Cable 26 degrees [facility] MUSE Calculated T Cable 73 degrees [facility] MUSE Interpretation EKG NORMAL SINUS RHYTHM 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) ABNORMAL ECG WHEN COMPARED WITH ECG OF 30-APR-2018 10:03, PREMATURE ATRIAL COMPLEXES ARE NO LONGER PRESENT NONSPECIFIC T WAVE ABNORMALITY NO LONGER EVIDENT IN ANTERIOR LEADS VENT RATE DECREASED BY 25 BPM Confirmed by Juliocesar HARDEN STEVEN ([id number]), technical editor Radha Phan ([id number]) on 12/19/2018 1:58:27 PM [facility] MUSE 10/21/2018 1:05 PM CDT 12/19/2018 1:58 PM CDT Sean Martinez MD ECG ORDERABLES Performing Organization Address [facility] [address] [facility]/ZIP Co de Phone Number [facility] MUSE * VALPROIC ACID LEVEL (10/21/2018 12:31 PM CDT) Pathologist [facility] Valproic Acid Total 73 50 - 100 mcg/mL 10/21/2018 1:02 PM CDT [facility] Blood BLOOD SPECIMEN / Unknown Venipuncture / Unknown 10/21/2018 12:31 PM CDT 10/21/2018 12:35 PM CDT Sean Martinez MD LAB - CHEMISTRY ORDE [facility] Performing Organization Address [facility] [address] [facility] de Phone Number [address] [phone] * OXCARBAZEPINE BLOOD (10/21/2018 12:31 PM CDT) Pathologist [facility] Oxcarbazepine Metabolite None Detected 10 - 35 ug/mL 10/27/2018 11:12 AM CDT [facility] ([facility]) Comment: This test was developed and its performance characteristics determined by [facility]. It has not been cleared or approved by the Food and Drug Administration. ?Detection Limit = 1 Blood BLOOD SPECIMEN / Unknown Venipuncture / Unknown 10/21/2018 12:31 PM CDT 10/21/2018 12:35 PM CDT Narrative [facility] ([facility]) - 10/27/2018 11:12 AM CDT Performed at: ??01 - [facility] ??[id number] Aluminum Boat Inspector: Terence Ramos MD, Phone: ??[phone] Sean Martinez MD LAB - CHEMISTRY [facility] ([facility]) [address] [place] [address] * LEVETIRACETAM LEVEL (10/21/2018 12:31 PM CDT) Levetiracetam 17.7 10.0 - 40.0 ug/mL 10/27/2018 11:12 AM CDT [facility] ([facility]) Comment: This test was developed and its performance characteristics determined by [facility]. It has not been cleared or approved by the Food and Drug Administration. Blood BLOOD SPECIMEN / Unknown Venipuncture / Unknown 10/21/2018 12:31 PM CDT 10/21/2018 12:35 PM CDT [facility]ative [facility]) - 10/27/2018 11:12 AM CDT Performed at: ??01 - [facility] ??[id number] Aluminum Boat Inspector: Terence Ramos MD, Phone: ??[phone] Sean Martinez MD LAB - THERAPEUTIC DR MONITORING ORDERABLES Performing Organization Address City/[facility] [address] [facility]/ZIP Co de Phone Number [facility] ([facility]) [address] [place] [address] * TROPONIN I (10/21/2018 12:31 PM CDT) Troponin I 0.012 <0.032 ng/mL 10/21/2018 1:02 PM CDT [facility] Blood BLOOD SPECIMEN / Unknown Venipuncture / Unknown 10/21/2018 12:31 PM CDT 10/21/2018 12:35 PM CDT Sean Martinez MD LAB - CHEMISTRY [facility] [address] [place] [address] * PHOSPHORUS BLOOD (10/21/2018 12:31 PM CDT) Phosphorus 2.9 2.3 - 4.7 mg/dL 10/21/2018 12:56 PM CDT [facility] Blood BLOOD SPECIMEN / Unknown Venipuncture / Unknown 10/21/2018 12:31 PM CDT 10/21/2018 12:35 PM CDT Sean Martinez MD LAB - CHEMISTRY [facility] [address] [phone] * MAGNESIUM BLOOD (10/21/2018 12:31 PM CDT) Magnesium 1.8 1.6 - 2.6 mg/dL 10/21/2018 12:56 PM CDT [facility] Blood BLOOD SPECIMEN / Unknown Venipuncture / Unknown 10/21/2018 12:31 PM CDT 10/21/2018 12:35 PM CDT Sean Martinez MD LAB - CHEMISTRY [facility] [address] [phone] * (ABNORMAL) CBC W AUTO DIFFERENTIAL (10/21/2018 12:31 PM CDT) WBC 5.9 3.5 - 10.5 10? 3 /uL 10/21/2018 12:43 PM CDT [facility] RBC 4.52 4.30 - 5.70 10? 6 /uL 10/21/2018 12:43 PM CDT [facility] Hemoglobin 14.9 13.5 - 17.5 g/dL 10/21/2018 12:43 PM CDT [facility] Hematocrit 43.6 39.0 - 50.0 % 10/21/2018 12:43 PM CDT [facility] MCV 96.5 81.0 - 97.0 fL 10/21/2018 12:43 PM CDT [facility] MCH 33.0 28.0 - 34.0 pg 10/21/2018 12:43 PM [facility] MCHC 34.2 32.0 - 36.0 g/dL 10/21/2018 12:43 PM [facility] Platelet Count 131(L) 150 - 400 10? 3 /uL 10/21/2018 12:43 PM [facility] RDW-SD 42.5 36.0 - 50.0 fL 10/21/2018 12:43 PM [facility] RDW-CV 11.9 11.2 - 14.8 % 10/21/2018 12:43 PM [facility] MPV 11.4 9.3 - 12.8 fL 10/21/2018 12:43 PM [facility] nRBC Absolute 0.00 0 10? 3 /uL 10/21/2018 12:43 PM [facility] nRBC Auto 0.0 0 /100 WBC 10/21/2018 12:43 PM [facility] Neutrophils % 56.8 35.0 - 70.0 % 10/21/2018 12:43 PM [facility] Lymphocytes % 32.0 19.7 - 55.1 % 10/21/2018 12:43 PM [facility] Monocytes % 7.1 3.0 - 15.0 % 10/21/2018 12:43 PM [facility] Eosinophils % 3.5 0.0 - 6.0 % 10/21/2018 12:43 PM [facility] Basophil % 0.3 0.0 - 1.5 % 10/21/2018 12:43 PM [facility] Neutrophils Absolute 3.4 1.6 - 7.0 10? 3 /uL 10/21/2018 12:43 PM [facility] Lymphocyte Absolute 1.9 0.8 - 2.9 10? 3 /uL 10/21/2018 12:43 PM [facility] Monocytes Absolute 0.42 0.14 - 0.66 10? 3 /uL 10/21/2018 12:43 PM [facility] Eosinophils Absolute 0.21 0.00 - 0.45 10? 3 /uL 10/21/2018 12:43 PM [facility] Basophils Absolute 0.02 0.00 - 0.06 10? 3 /uL 10/21/2018 12:43 PM [facility] Immature Granulocytes % 0.3 0.0 - 1.0 % 10/21/2018 12:43 PM [facility] Blood BLOOD SPECIMEN / Unknown Venipuncture / Unknown 10/21/2018 12:31 PM CDT 10/21/2018 12:35 PM T Sean Martinez MD LAB - HEMATOLOGY ORD ERABLES [facility] [address] [phone] * COMPREHENSIVE METABOLIC PANEL (10/21/2018 12:31 PM T) BUN 12 7 - 26 mg/dL 10/21/2018 12:56 PM [facility] Creatinine 1.0 0.6 - 1.2 mg/dL 10/21/2018 12:56 PM [facility] Sodium 141 136 - 145 mmol/L 10/21/2018 12:56 PM [facility] Potassium 3.9 3.5 - 4.5 mmol/L 10/21/2018 12:56 PM [facility] Chloride 106 98 - 107 mmol/L 10/21/2018 12:56 PM [facility] CO2 25 22 - 29 mmol/L 10/21/2018 12:56 PM [facility] Glucose 91 70 - 115 mg/dL 10/21/2018 12:56 PM [facility] Calcium 9.5 8.4 - 10.2 mg/dL 10/21/2018 12:56 PM [facility] Protein Total 7.0 6.0 - 8.3 g/dL 10/21/2018 12:56 PM [facility] Albumin 3.9 3.4 - 5.0 g/dL 10/21/2018 12:56 PM [facility] Bilirubin Total 0.4 0.2 - 1.2 mg/dL 10/21/2018 12:56 PM [facility] Alkaline Phosphatase 53 40 - 150 Units/L 10/21/2018 12:56 PM [facility] ALT 8 0 - 55 Units/L 10/21/2018 12:56 PM [facility] AST 15 5 - 34 Units/L 10/21/2018 12:56 PM [facility] Anion Gap 14 8 - 18 10/21/2018 12:56 PM [facility] BUN/Creatinine Ratio 12 7 - 23 10/21/2018 12:56 PM [facility] Osmolality Calculated 291 270 - 300 mOsm/kg 10/21/2018 12:56 PM [facility] Albumin/Globulin Ratio 1.3 1.1 - 2.3 10/21/2018 12:56 PM [facility] eGFR >60 >60 mL/min/1.7 3 m2 10/21/2018 12:56 PM [facility] Blood BLOOD SPECIMEN / Unknown Venipuncture / Unknown 10/21/2018 12:31 PM CDT 10/21/2018 12:35 PM CDT Sean Martinez MD LAB - CHEMISTRY [facility] Organization Address City/State/ZIP Co de Phone Number [address] [phone] documented in this encounter Visit Diagnoses Diagnosis Seizure (HCC)- Primary Other convulsions Partial 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, intractable, without status epilepticus (HCC) documented in this encounter Active and Recently Administered Medications Care Teams Document Restorer Relationship Specialty Start Date End Date Misael Maradiaga DO PCP - General 10/03/17 09/15/20 Elizabeth Sullivan, ALFRED Neuroscience Director Na 10/14/17 documented as of this encounter
--- OUTSIDE RECORDS SUMMARY | 2024-06-08 05:44 | XMS_ITS | Encounter Summary ---
Author Organization [facility] Health Address [address] [place] [address] Care Team Providers Care Supervisory Forester Name Role Phone Misael Maradiagajamel Primary Care Provider Elizabeth Sullivan RN Unavailable Encounter Details Date Type Department Care Team (Late st Contact Info) Description 04/11/2018 2:00 PM TECHNICAL DEVELOPER Office Visit [facility] [address] [place] [address] Ck Feliciano MD [address] [place] [id number] Partial 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, intractable, without status epilepticus (HCC) (Primary Dx); Vitamin B12 deficiency; Folate deficiency; Thiamine deficiency; Cervical stenosis of spine; Cerebellar atrophy (HCC) Social History Tobacco Use Types Packs/Day [...] Sign Reading Time Taken Comments Blood Pressure 135/78 04/11/2018 2:05 PM TECHNICAL DEVELOPER Pulse 95 04/11/2018 2:05 PM TECHNICAL DEVELOPER Temperature - - Respiratory Rate - - Oxygen Saturation - - Inhaled Oxygen Concentration - - Weight 64.4 kg (142 lb) 04/11/2018 2:05 PM TECHNICAL DEVELOPER Height 180.3 cm (5' 11 ) 04/11/2018 2:05 PM TECHNICAL DEVELOPER Body Mass Index 19.8 04/11/2018 2:05 PM TECHNICAL DEVELOPER documented in this encounter Functional Status Functional [...] No 10/15/2017 documented as of this encounter Patient Instructions * Patient Instructions* Ck Feliciano MD - 04/11/2018 2:23 PM TECHNICAL DEVELOPER Start Oxcarbazepine 300 mg tablet, Use half a tablet twice a day for 2 weeks, make sure you do not get dizzy, and increase to 1 tablet twice a day. Current seizure medication medication: Levetiractam 750 mg 3 - [address] 500 mg 1 - 1 Oxcarbazepine 300 mg 0.5 - 0.5 for 2 weeks, then 1 - 1 Clonazepam 0.5 mg Used after a seizure to prevent clustering Other medications Gabapentin, Folic Acid, B12, B1 pills NICAL DEVELOPER documented in this encounter Progress Notes * Ck Feliciano MD - 04/11/2018 2:09 PM CST [facility]psy [facility] Note PCP Misael Maradiaga Date of Encounter: 04/11/2018 Chief Complaint: Seizures Gait difficulty AGE OF ONSET 50-year-old SEMIOLOGY - Aura Tingling sensation over the right side - Ictus 1. Dyscongitive events 2. Convulsions, tongue bites - Post-ictus Confusion SEIZURE CONTROL Seizure frequency 1. 1 event every 1 to months 2. 1 event every 1 to 2 months Seizure free interval Uncontrolled Date of last seizure 1. 04/11/2018 2. 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 Age of onset [id number]. Clinical semiology described as (Aura) tingling sensation [...] Later, his Levetiracetam was increased and Depakote Sprinkle was added to his regimen. - He does have erratic compliance at times, but still has breakthrough seizures even with good compliance. Last generalized convulsions occurred in 02/2018, which resulted in ER visit. ROS: General Negative except per HPI Eyes [...] Medications: Current Outpatient Prescriptions Medication Sig ??? divalproex sprinkle (DEPAKOTE SPRINKLE) 125 MG capsule TK 4 C PO BID ??? levETIRAcetam (KEPPRA) 750 MG tablet Take 3 tablets by mouth 2 times daily (Patient taking differently: Take 1,500 mg by mouth 2 times daily ) ??? Cyanocobalamin (B-12) 1000 MCG Take 1 [...] file Social History Narrative Physical Exam: Vitals: 04/11/18 1405 BP: 135/78 Pulse: 95 Weight: 142 lb (64.4 kg) Height: 5' 11 (1.803 m) General [...] (Ictus #2) generalized convulsions, tongue bites. - He does have erratic compliance at times, but still has breakthrough seizures even with good compliance. Last generalized convulsions occurred in 02/2018, which resulted in ER visit. - Following changes were made to his AED regimen Changes Levetiractam 750 mg 3 - 3 * Unchanged Depakote Sprinkle 125 mg 4 - 4 * Discontinued Depakote DR 500 mg 1 - 1 * Added Oxcarbazepine 300 mg 0.5 - 0.5 * Added x 2 weeks, then increase to... 1 - 1 Clonazepam 0.5 mg PRN *Unchanged - He will need more frequent appointment, and asked for him to come again in 4 weeks to ensure goodcontrol/compliance/tolerability. Plan CBC/CMP/LEV/VPA/OXC Levels next visit. #Cerebrovascular disease Ischemic stroke, with resulted left-sided [...] 2 years, or sooner if clinically deteriorated. - Gabapentin 300 mg TID Follow up in 1 month Ck Feliciano MD NICAL DEVELOPER documented in this encounter Plan of Treatment Upcoming Encounters Date Type Department Care Team (Late st Contact Info) Description 12/05/2024 1:00 PM CDT Office Visit [facility] - Neurology [address] [place] [address], [place] [phone] Sean Raymundo DO [facility] [place] [phone] documented as of this encounter Visit Diagnoses Diagnosis Partial 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, intractable, without status epilepticus (HCC)- Primary Vitamin B12 deficiency Other B-complex deficiencies Folate deficiency Other B-complex deficiencies Thiamine deficiency Other and unspecified manifestations of thiamine deficiency Cervical stenosis of spine Spinal stenosis in cervical region Cerebellar atrophy (HCC) Cerebral degeneration, unspecified documented in this encounter Care Teams Supervisory Forester Relationship Specialty Start Date End Date Misael Maradiaga DO PCP - General 10/03/17 09/15/20 Elizabeth Sullivan, RN Record Filing Clerk 10/14/17 documented as of this encounter
--- OUTSIDE RECORDS SUMMARY | 2024-06-08 05:44 | XMS_ITS | Encounter Summary ---
Author Organization [facility] Address [address] [place] [address] Care Team Providers Care Assistant Front Office Manager Name Role Phone Hiren Misael Yostjamel Primary Care Provider Elizabeth Sullivan RN Unavailable [phone] Reason for Visit * Reason Comments Seizure Pt BIBEMS with c/o s eizure 30 mins prior at approx 1200, unwitnessed, fall to ground, pt denies injury or hitting head, negative LOC, hx seizure and CVA 2016, pt states he has weekly seizures and is scheduled to see Neurologist 02/06, pt takes Keppra and just started valporic acid, VSS Encounter Details Date Type Department Care Team (Late st Contact Info) Description 01/30/2018 11:51 AM CDT - 01/30/2018 6:47 PM CDT Emergency [facility] EMERGENCY DEPARTMENT [address] [place] [address] Shane Fajardo MD [address] [place] [address] Walt Linder MD [address] [place] [address] Recurrent seizures (HCC) (Primary Dx) Discharge Disposition: Home or [...] Sign Reading Time Taken Comments Blood Pressure 134/82 01/30/2018 12:36 PM CDT Pulse 80 01/30/2018 12:36 PM CDT Temperature 36.6 ??C (97.8 ??F) 01/30/2018 12:37 PM C DT Respiratory Rate 18 01/30/2018 12:36 PM CDT Oxygen Saturation 100% 01/30/2018 12:36 PM CDT Inhaled Oxygen Concentration - - Weight 72.6 kg (160 lb) 01/30/2018 12:36 PM CDT Height 180.3 cm (5' 11 ) 01/30/2018 12:36 PM CDT Body Mass Index 22.32 01/30/2018 12:36 PM CDT documented in this encounter [...] this encounter Discharge Instructions * Discharge Instructions* Luis Antonio Whitlock MD - 01/30/2018 5:25 PM CDT Images from the original note [...] also trigger a seizure. DISCHARGE INSTRUCTIONS: Call 911 or have someone else call for any [...] ?? You have a seizure in water. Return to the emergency department if: ?? You are injured during a seizure. Contact your healthcare provider if: ?? You have a fever. ?? You [...] am fully awake. Follow up with your healthcare provider or neurologist as directed: You may need more tests to findthe cause of your seizure. You may also need tests to check the level of antiseizure medicine in your blood. Your neurologist may need to change or adjust your medicine. Write down your questions so you remember to ask them during your visits. ?? 2017 [employer] Information is for End User's use only and may not be sold, redistributed or otherwise used for commercial purposes. All illustrations and images included in CareNotes?? are the copyrighted property of [employer] or [employer]. The above information is an home health aid only. It is not intended as medical [...] tablet by mouth once daily 30 tablet 01/09/2018 06/10/2018 clonazePAM (KLONOPIN) 0.5 MG tabletIndications:Epile psy with seizures of localized onset (HCC) Take 1 tablet by mouth every 8 hours as needed (After a seizure to prevent clustering. Please call the office if seizures occur.) 20 tablet 2 01/09/2018 04/11/2018 Cyanocobalamin (B-12) 1000 MCGIndications:Vitamin B12 deficiency Take 1 mg by mouth once daily 30 capsule 01/09/2018 04/11/[address] (DEPAKOTE) 250 MG tablet Take 3 tablets by mouth 2 times daily for 30 days 180 tablet 01/30/2018 03/01/2018 folic acid (FOLVITE) 1 MG tabletIndications:Folat e deficiency Take 1 tablet by mouth once daily 30 tablet 01/09/2018 04/11/2018 gabapentin (NEURONTIN) 300 MG capsuleIndications:Epil epsy with seizures of localized onset (HCC) Take 1 capsule by mouth 3 times daily 90 capsule 5 01/09/2018 04/11/2018 levETIRAcetam (KEPPRA) 750 MG tabletIndications:Epile psy with seizures of localized onset (HCC) Take 3 tablets by mouth 2 times daily 180 tablet 01/09/2018 04/11/2018 thiamine (VITAMIN B-1) 100 MG tabletIndications:Lucia ine deficiency Take 1 tablet by mouth once daily 30 tablet 01/09/2018 04/11/2018 documented as of this encounter Consult Notes * Humberto Echeverria MD - 01/30/2018 6:45 PM CDT Neurology Note Date of Encounter: 01/31/18 Chief Complaint: Breakthrough seizures HPI: This is a 58 yo man with pmhx significant for TBI, 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 Unwitnessed seizure. Patient has a hx of focal with secondary generalization and takes keppra 2250 BID, Depakote 500 mg BID. He reports that he felt dizzy with standing yesterday andwhile ambulating to the bathroom, he fell. Denies any LOC, incontinence, tongue biting. He reports compliance with all medications. In the ED, labs were significant for a magnesium 0.6 which was repleted. Depakote level was 46; of note 3 weeks prior he was evaluated in neurology clinic where is depakote level was found to be 41. He denies any recent illness, cough/cool. Prior to this ? Seizure episode, his last seizure was in 10/14 at which time keppra was increased. ROS: General Negative except per HPI Eyes [...] HPI Allergies: No Known Allergies Home Medications: No current facility-administered medications for this encounter. Current Outpatient Prescriptions Medication Sig ??? divalproex DR (DEPAKOTE) 250 MG tablet Take 3 tablets by mouth 2 times daily for 30 days ??? levETIRAcetam (KEPPRA) 750 MG tablet Take [...] mouth once daily PMH: Past Medical History: Diagnosis Date ??? [...] Comment: last drink 2015 ??? Drug use: Yes Special: Marijuana Comment: occasional ??? Sexual activity: Not Currently Other Topics Concern ??? Not on file Social History Narrative Physical Exam: Vitals: 01/30/18 1236 01/30/18 1237 BP: 134/82 Pulse: 80 Resp: 18 Temp: 97.8 ??F (36.6 ??C) SpO2: 100% Weight: 160 lb Cortical Function: MS: Awake, Alert, Follows Commands Oriented to Person, Place and Time Language: Fluent, Coherent, Repetition Intact VF Intact to confrontation test Neglect No visual neglect, No tactile neglect Cranial Nerves: Pupils 4-3 mm BRTL, Full EOM, No ptosis or nystagmus Facial sensation intact bilaterally to LT; No facial palsy Hearing intact to finger rub bilaterally Palate symmetric; Normal tongue protrusion Motor: Abnormal Movements: None Bulk: Normal Tone: Normal Strength: Appropriate for Age RUE 5/5 LUE 5/5 RLE 4/5 LLE 4/5 (ambulates w/ wheeled walker at baseline) DTR: Bi Tri BR Pat Ach Toes R 2 2 2 3 2 Down L 2 2 2 3 2 Down Sensory: Intact to light touch Cerebellar: FNF, HKS intact bilaterally Gait: Ambulates with wheeled walker, gait at baseline per patient Assessment: 58 yo man with hx of post stroke epilepsy presents to the ED after a fall. No LOC or seizure like activity reported by patient but he was insistent that the dizziness he felt is a part of his aura. Plan: -Recommend correction of the hypomagnesemia -Recommend increasing depakote from 500 mg BID to 750 mg BID -Continue keppra 2250 mg BID -Follow up in Neurology clinic with Dr. Feliciano -Basic seizure precautions 1. No climbing to heights over 4-6 feet 2. No un supervised sitting in water of any kind, including bath tubs and swimming pools. Showers are preferred, no locked doors. 3. No operating anything with a motor, including lawn mowers, ATV, or cars 4. No power tools 5. You CAN ride a bicycle on a quiet street with a helmet only -Patient currently at baseline. No further neurological work up needed Case findings discussed with Dr. Goodson, Neurology Attending. Felicia Loyola MD Neurology Resident Discussed history, examination findings, laboratory data and investigations with the resident over the telephone. Agree with the documented resident notes, diagnosis and plan of management. Humberto Payan MD Please see resident notes for details documented in this encounter ED Notes * Clover Zimmerman RN - 01/30/2018 6:44 PM CDT Discharge instructions reviewed with pt, questions answered, VSS, peripheral iv removed, sister ethyl called for ride, sister updated on events, questions answered * Luis Antonio Whitlock MD - 01/30/2018 3:02 PM CDT 3:02 PM Care assumed from Dr. Fajardo Briefly, this is a 58 y.o. male with chief complaint of seizure. On Keppra, questionable compliance. Pending repeat magnesium. Pending neurology recs. Genna shipley. Please refer to previous resident's note for further details. BP 134/82 Pulse 80 Temp 97.8 ??F (36.6 ??C) Resp 18 Ht 1.803 m (5' 11 ) Wt 72.6 kg (160 lb) SpO2 100% BMI 22.32 kg/m2 ED Course: 3:04 PM VSS, NAD. Pending neuro ?? Discussed with neurology, recommend increasing depakote to 750mg BID ?? Follow up with Dr Ortiz in clinic Diagnosis: 1. Recurrent seizures Disposition: discharge * Clover Zimmerman RN - 01/30/2018 3:00 PM CDT Pt requesting update on plan, informed pt we are awaiting results and assessment by neurologist, ptstates understanding, questions answered, vss, will continue to monitor. * Walt Linder MD - 01/30/2018 2:00 PM CDT Patient signed out to me by Dr. Fajardo At 2:00 PM Chief Complaint: Chief Complaint Patient presents with ??? Seizure Pt BIBEMS with c/o seizure 30 mins prior at approx 1200, unwitnessed, fall to ground, pt denies injury or hitting head, negative LOC, hx seizure and CVA 2016, pt states he has weekly seizures and is scheduled to see Neurologist 02/06, pt takes Keppra and just started valporic acid, VSS The patient is being evaluated for seizure that was unwitnessed. Patient notes that he is complaintwith his seizure medications. 5:20PM- Patient was evaluated by Neurology. They recommend increasing Depakote to 750 and discharge. Patient will be discharged on their recommendations. At this time the patient's condition is fair 5:33PM- Per notification per discharge, patient had what seems like a pseudo seizure. Patient noteshis name and birthday, but was not oriented to the place and thinks that he is at home. Vitals: 01/30/18 1236 01/30/18 1237 BP: 134/82 Pulse: 80 Resp: 18 Temp: 97.8 ??F (36.6 ??C) SpO2: 100% Weight: 72.6 kg (160 lb) Estimated body mass index is 22.32 kg/(m^2) as calculated from the following: Height as of this encounter: 1.803 m (5' 11 ). Weight as of this encounter: 72.6 kg (160 lb). At this time the following studies are : Labs Reviewed CBC W AUTO DIFFERENTIAL - Abnormal; Notable for the following: Result Value MPV 12.9 (*) All other components within normal limits VALPROIC ACID LEVEL - Abnormal; Notable for the following: Valproic Acid Total 46 (*) All other components within normal limits MAGNESIUM BLOOD - Abnormal; Notable for the following: Magnesium <0.6 (*) All other components within normal limits BASIC METABOLIC PANEL (CALCIUM TOTAL) - Normal PHOSPHORUS BLOOD - Normal MAGNESIUM BLOOD - Normal HIV-1 HIV-2 ANTIGEN/ANTIBODY - Normal HEPATITIS C AB SCREEN RFLX NAAT QUANT - Normal ALCOHOL ETHYL BLOOD HEPATIC FUNCTION PANEL LEVETIRACETAM LEVEL No orders to display No results found. Plan: Neuro consult Disposition: Discharge with 750 Depakote per Neurology recommendations. By signing my name below, I, Елена Quinn, attest that this documentation has been prepared under the direction and in the presence of Dr. Linder . Signed: Laisha Vasquez. 01/30/2018 2:00 PM I, Dr. Linder, personally performed the services described in this documentation. All medical record entries made by the scribe were at my direction and in my presence. I have reviewed the chart and agree that the record reflects my personal performance and is accurate and complete. * Clover Zimmerman RN - 01/30/2018 2:00 PM CDT Pt requesting update of plan, informed pt we will draw various labs, contact neurologist and monitor VS, pt denies any pain and complaints at this time, vss, will continue to monitor. * Clover Zimmerman RN - 01/30/2018 1:21 PM CDT Ethyl (sister) [phone] * Clover Zimmerman RN - 01/30/2018 1:20 PM CDT Home meds secured and placed in pyxis * Clover Zimmerman RN - 01/30/2018 12:36 PM CDT Pt BIBEMS with c/o seizure 30 mins prior at approx 1200, unwitnessed, fall to ground, pt denies injury or hitting head, negative LOC, hx seizure and CVA 2016, pt states he has weekly seizures and is scheduled to see Neurologist 02/06, pt takes Keppra and just started valporic acid, VSS, was not incontinent, no oral injury * Parvin Salazar MD - 01/30/2018 12:21 PM CDT HPI Bi Tabor Jr. is a 58 y.o. male with hx as below, who presents via EMS complaining of unwitnessed seizures. 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 States prior to his seizures typically experiences a prodrome where he knows he is about to have one. States that he takes 1500 mg Keppra BID, Depakote 500 mg TID, and klonopin 0.5 mg TID. States that he has been compliant with his medications. Denies hitting head. Denies CP, SOB, abd pain, n/v/d. No diarrhea or constipation. No other complaints at this time. Past Medical History: Diagnosis Date ??? CVA (cerebral vascular accident) ??? HTN (hypertension) ??? Seizure No past surgical history on file. No family history on file. Social History Substance Use Topics ??? Smoking status: Current Every Day Smoker Packs/day: 0.25 Years: 15.00 ??? Smokeless tobacco: Never Used ??? Alcohol use No No Known Allergies No current facility-administered medications for this encounter. Current Outpatient Prescriptions Medication Sig ??? MAPAP 325 MG tablet TK 2 TS PO Q 4 H PRN P ??? levETIRAcetam (KEPPRA) 750 MG tablet Take [...] Take 40 mg by mouth once daily Review of Systems Constitutional: Negative for chills and fever. HENT: Negative for congestion and rhinorrhea. Eyes: Negative for pain and redness. Respiratory: Negative for cough and shortness of breath. Cardiovascular: Negative for chest pain. Gastrointestinal: Negative for abdominal pain, constipation, diarrhea, nausea and vomiting. Genitourinary: Negative for dysuria and hematuria. Musculoskeletal: Negative for back pain and neck pain. Skin: Negative for rash and wound. Neurological: Positive for seizures. Negative for syncope and headaches. Physical Exam There were no vitals taken for this visit. Physical Exam Constitutional: He is oriented to person, place, and time. He appears well- developed and well-nourished. No distress. HENT: Head: Normocephalic. Head is with contusion (hematoma over right eyebrow). Right Ear: External ear normal. Left Ear: External ear normal. Mouth/Throat: Oropharynx is clear and moist. Eyes: Conjunctivae are normal. Pupils are equal, round, and reactive to light. Neck: Normal range of motion. Cardiovascular: Normal rate, regular rhythm, normal heart sounds and intact distal pulses. No murmur heard. Pulmonary/Chest: Effort normal and breath sounds normal. No accessory muscle usage. No respiratory distress. He has no decreased breath sounds. He has no wheezes. He has no rhonchi. He has no rales. Abdominal: Soft. He exhibits no distension. There is no tenderness. Musculoskeletal: Normal range of motion. Neurological: He is alert and oriented to person, place, and time. Skin: Skin is warm and dry. He is not diaphoretic. Psychiatric: He has a normal mood and affect. Labs Reviewed CBC W AUTO DIFFERENTIAL - Abnormal; Notable for the following: Result Value MPV 12.9 (*) All other components within normal limits VALPROIC ACID LEVEL - Abnormal; Notable for the following: Valproic Acid Total 46 (*) All other components within normal limits LEVETIRACETAM LEVEL - Abnormal; Notable for the following: Keppra Levetiracetam 55.2 (*) All other components within normal limits Narrative: Performed at: 01 - [facility] [id number] [employer] Job Setter: Vito Hay MD, Phone: [phone] MAGNESIUM BLOOD - Abnormal; Notable for the following: Magnesium <0.6 (*) All other components within normal limits BASIC METABOLIC PANEL (CALCIUM TOTAL) - Normal PHOSPHORUS BLOOD - Normal MAGNESIUM BLOOD - Normal HIV-1 HIV-2 ANTIGEN/ANTIBODY - Normal HEPATITIS C AB SCREEN RFLX NAAT QUANT - Normal ALCOHOL ETHYL BLOOD HEPATIC FUNCTION PANEL Medications - No data to display No orders to display MDM clincal dx: seizure Differential: breath through sz, medication non compliance, electrolyte abnormality, other Plan: cbc, bmp, hepatic function panel, keppra level, valproic acid level, alcohol level, mg, phos ED Course -Patient seen and evaluated, available studies reviewed -Prior available records reviewed yes - recent seizure, recent increase in AEDs -Consults obtained: Neurology - discussed pt with neurology resident, they will come see the patient. - pt signed out to Dr. Whitlock, pending neurology recs. Procedures ED Final Diagnosis and Discharge information 1. Recurrent seizures Scripts Follow-up Disposition Pt signed out to Dr. Whitlock. Pending neuro recs * Shane Fajardo MD - 01/30/2018 11:53 AM CDT [facility] eMERGENCY dEPARTMENT eNCOUnter HISTORICAL INFORMATION Primary Care Doctor: Misael Maradiaga DO Patient information was obtained primarily from the patient, nursing notes, and past medical records History/Exam limitations: None Provider contact time: 12:26 PM I have personally seen, examined and been fully involved in the management of this patient with theresident. I confirm history, exam, assessment and plan Discussed. In addition I note: CHIEF COMPLAINT Seizure (Pt BIBEMS with c/o seizure 30 mins prior at approx 1200, unwitnessed, fall to ground, pt denies injury or hitting head, negative LOC, hx seizure and CVA 2016, pt states he has weekly seizures and is scheduled to see Neurologist 02/06, pt takes Keppra and just started valporic acid, VSS) KARL Tabor Jr. is a 58 y.o. 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 Pt states he recalls starting to shake and then does not remember events after that. This is similar to prior seizures. Unknown exact duration of seizure. States he is compliant with his seizure medications. No other complaints or modifying factors. PAST MEDICAL HISTORY Past Medical History: Diagnosis Date ??? CVA (cerebral vascular accident) ??? HTN (hypertension) ??? Seizure SURGICAL HISTORY No past surgical history on file. CURRENT MEDICATIONS Current Outpatient Prescriptions: ??? divalproex DR (DEPAKOTE) 125 MG tablet, Take 500 mg by mouth every 8 hours, Disp: , Rfl: ??? levETIRAcetam (KEPPRA) 750 MG tablet, Take 3 tablets by mouth 2 times daily (Patient taking differently: Take 1,500 mg by mouth 2 times daily ), Disp: 180 tablet, Rfl: 5 ??? Cyanocobalamin (B-12) 1000 MCG, Take 1 mg by mouth once daily, Disp: 30 capsule, Rfl: 5 ??? folic acid (FOLVITE) 1 MG tablet, Take 1 tablet by mouth once daily, Disp: 30 tablet, Rfl: 5 ??? gabapentin (NEURONTIN) 300 MG capsule, Take 1 capsule by mouth 3 times daily, Disp: 90 capsule,Rfl: 5 ??? aspirin (ASPIRIN) 81 MG chew tablet, Take 1 tablet by mouth once daily, Disp: 30 tablet, Rfl: 5 ??? clonazePAM (KLONOPIN) 0.5 MG tablet, Take 1 tablet by mouth every 8 hours as needed (After a seizure to prevent clustering. Please call the office if seizures occur.), Disp: 20 tablet, Rfl: 2 ??? thiamine (VITAMIN B-1) 100 MG tablet, Take 1 tablet by mouth once daily, Disp: 30 tablet, Rfl: 5 ??? amLODIPine (NORVASC) 5 MG tablet, Take 1 tablet by mouth once daily, Disp: 30 tablet, Rfl: 5 ALLERGIES No Known Allergies FAMILY HISTORY No family history on file. SOCIAL HISTORY Social History Social History ??? Marital status: Single Spouse name: N/A ??? Number of children: N/A ??? Years of education: N/A Social History Main Topics ??? Smoking status: Current Every Day Smoker Packs/day: 0.25 Years: 15.00 ??? Smokeless tobacco: Never Used ??? Alcohol use No Comment: last drink 2015 ??? Drug use: Yes Special: Marijuana Comment: occasional ??? Sexual activity: Not Currently Other Topics Concern ??? Not on file Social History Narrative REVIEW OF SYSTEMS Constitutional: Denies fever, chills, weight loss or weakness. Eyes: Denies photophobia or discharge. HENT: Denies sore throat or ear pain. Respiratory: Denies cough or shortness of breath. Cardiovascular: Denies chest pain, palpitations or swelling. GI: Denies abdominal pain, nausea, vomiting, or diarrhea. Musculoskeletal: Denies back pain. Skin: Denies rash. Neurologic: See HPI Endocrine: Denies polyuria or polydypsia. Lymphatic: Denies swollen glands. Psychiatric: Denies depression, suicidal ideation or homicidal ideation. See HPI for further details. All systems negative except as marked. PHYSICAL EXAM VITAL SIGNS: BP 134/82 Pulse 80 Temp 97.8 ??F (36.6 ??C) Resp 18 Ht 1.803 m (5' 11 ) Wt 72.6 kg (160 lb) SpO2 100% BMI 22.32 kg/m2 Constitutional: Well developed, Well nourished, No [...] distal pulses, No edema, No tenderness, No cyanosis, No clubbing. Good range of motion in all major joints. No tenderness to palpation or major deformities noted. Back- No tenderness. Integument: Warm, Dry, No erythema, No rash. Lymphatic: No lymphadenopathy noted. Neurologic: Alert & oriented x 3, Normal motor function, Normal sensory function, No focal deficits noted. Psychiatric: Affect normal, Judgment normal, Mood normal. Pulse Oximetry Interpretation Saturation: 98% Oxygen Delivery: ra Interpretation: normal Rhythm Strip Interpretation (interpreted by ED provider) Rhythm: sinus Ventricular Rate: 80 bpm Differential diagnosis: Differential diagnostic considerations for altered mental status include overdose (intentional, accidental or recreational), substance abuse, metabolic encephalopathies, traumatic injury, ICH, elevated ICP, sepsis, and withdrawal syndromes. ED COURSE & MEDICAL DECISION MAKING Pertinent Labs & Imaging studies reviewed. (See chart for details) Hospital Encounter on 01/30/18 CBC W AUTO DIFFERENTIAL Result Value Ref Range WBC 4.4 3.5 - 10.5 10??3/uL RBC 4.58 4.30 - 5.70 10??6/uL Hemoglobin 15.2 13.5 - 17.5 g/dL Hematocrit 43.3 39.0 - 50.0 % MCV 94.5 81.0 - 97.0 fL MCH 33.2 28.0 - 34.0 pg MCHC 35.1 32.0 - 36.0 g/dL Platelet 153 150 - 400 10??3/uL RDW-SD 41.7 36.0 - 50.0 fL RDW-CV 12.2 11.2 - 14.8 % MPV 12.9 (H) 9.3 - 12.8 fL Neutrophil % 51.8 35.0 - 70.0 % Lymphocytes % 39.7 19.7 - 55.1 % Monocytes % 5.6 3.0 - 15.0 % Eosinophils % 2.7 0.0 - 6.0 % Basophil % 0.2 0.0 - 1.5 % Neutrophil Absolute 2.3 1.6 - 7.0 10??3/uL Lymphocytes Absolute 1.8 0.8 - 2.9 10??3/uL Monocytes Absolute 0.25 0.14 - 0.66 10??3/uL Eosinophil Absolute 0.12 0.00 - 0.22 10??3/uL Basophils Absolute 0.01 0.00 - 0.06 10??3/uL Immature Granulocyte % 0.2 0.0 - 1.0 % BASIC METABOLIC PANEL (CALCIUM TOTAL) Result Value Ref Range BUN 13 7 - 26 mg/dL Creatinine 0.9 0.6 - 1.2 mg/dL Sodium 140 136 - 145 mmol/L Potassium 3.9 3.5 - 4.5 mmol/L Chloride 105 98 - 107 mmol/L CO2 24 22 - 29 mmol/L Glucose 93 70 - 115 mg/dL Calcium 9.2 8.4 - 10.2 mg/dL Anion Gap 15 8 - 18 BUN/Creatinine Ratio 14 7 - 23 Calculated Osmolality 290 270 - 300 mOsm/kg eGFR >60 >60 mL/min/1.73 m2 VALPROIC ACID LEVEL Result Value Ref Range Valproic Acid Total 46 (L) 50 - 100 mcg/mL ALCOHOL ETHYL BLOOD Result Value Ref Range Ethanol Level None Detected None Detected mg/dL PHOSPHORUS BLOOD Result Value Ref Range Phosphorus 3.0 2.3 - 4.7 mg/dL HEPATIC FUNCTION PANEL Result Value Ref Range Total Protein 6.9 6.0 - 8.3 g/dL Albumin 3.7 3.4 - 5.0 g/dL Bilirubin Total 0.4 0.2 - 1.2 mg/dL Bilirubin Direct 0.2 0.0 - 0.5 mg/dL Bilirubin Indirect 0.2 Unconjugated Bilirubin is a calculated value: Reference ranges have not beenestablished. mg/dL Alkaline Phosphatase 75 40 - 150 Units/L ALT/SGPT 10 0 - 55 Units/L AST/SGOT 14 5 - 34 Units/L A/G Ratio 1.2 1.1 - 2.3 Amount and/or Complexity of Data Reviewed Triage notes and available nursing notes reviewed Clinical lab tests: ordered and reviewed Tests in the radiology section of CPT??: ordered and reviewed Independent visualization of images, tracings, or specimens (including EKGs): yes Decide to obtain previous medical records or to obtain history from someone other than the patient:yes, see HPI Review and summarize past medical records: yes Discuss the patient with other providers: yes FINAL IMPRESSION 1. Seizure Disposition: Patient signed out to Dr. Linder at 2:00 PM. At this time the patient's condition is Stable . By signing my name below, I, Gifty Issa, attest that this documentation has been prepared under thedirection and in the presence of Dr. Fajardo. Electronically Signed: Laisha Willard. 01/30/2018 1:52 PM Shane Fajardo M.D. Emergency Medicine Physician * Susan Mulligan, RN - 01/30/2018 11:52 AM CDT Bed: 1 Expected date: Expected time: Means of arrival: Ambulance ([facility]) Comments: 58 year old male with seizure history of seizure 160/90 96 documented in this encounter Plan of Treatment Upcoming Encounters Date Type Department Care Team (Late st Contact Info) Description 12/05/2024 1:00 PM CDT Office Visit [facility] - Neurology [address] [place] [address], [place] [id number] Sean Raymundo, [address] [place] [address] [place] [phone] documented as of this encounter Procedures Procedure Name Priority Date/Time Associated Diagnosis Comments HIV-1 HIV-2 ANTIGEN/ANTIBODY STAT 01/30/2018 3:01 PM CDT HEPATITIS C AB SCREEN RFLX NAAT QUANT STAT 01/30/2018 3:01 PM CDT MAGNESIUM BLOOD STAT 01/30/2018 3:01 PM CDT LEVETIRACETAM LEVEL STAT 01/30/2018 1 2:55 PM CDT CBC W AUTO DIFFERENTIAL STAT 01/30/2018 12:55 PM CDT BASIC METABOLIC PANEL (CALCIUM TOTAL) STAT 01/30/2018 12:55 PM CDT PHOSPHORUS BLOOD STAT 01/30/2018 12:5 5 PM CDT HEPATIC FUNCTION PANEL STAT 8 12:55 PM CDT MAGNESIUM BLOOD STAT 01/30/2018 12:55 PM CDT ALCOHOL ETHYL BLOOD STAT 01/30/2018 1 2:55 PM CDT VALPROIC ACID LEVEL STAT 01/30/2018 1 2:55 PM CDT documented in this encounter Results * HEPATITIS C AB SCREEN RFLX NAAT QUANT (01/30/2018 3:01 PM CDT) Hepatitis C Antibody Non-react phan Non-reac tive 01/30/2018 4:06 PM CDT [facility] Comment: Hepatitis C Antibody screen indicates no serologic evidence of past or current infection with Hepatitis C Virus. Patients with unexplained liver disease who are immunocompromised or suspected of having acute Hepatitis C infection may benefit from Nucleic Acid Test (BASILIO) for Hepatitis C Viral RNA to confirm Hepatitis C status. Blood BLOOD SPECIMEN / Unknown Venipuncture / Unknown 01/30/2018 3:01 PM CDT 01/30/2018 3:01 PM CDT Leonardo Hanson MD LAB - CHEMISTRY [facility] Organization Address City/State/ZIP Co de Phone Number [facility] [address] [phone] * HIV-1 HIV-2 ANTIGEN/ANTIBODY (01/30/2018 3:01 PM CDT) HIV Antigen/Antibod y 1 & 2 Non-reacti ve Non-react phan 01/30/2018 4:05 PM CDT [facility] Comment: Neither HIV-1 p24 Antigen nor HIV-1/HIV-2 Antibodies are detected. ? Blood BLOOD SPECIMEN / Unknown Venipuncture / Unknown 01/30/2018 3:01 PM CDT 01/30/2018 3:01 PM CDT Leonardo Hanson MD LAB - HEMATOLOGY ORD ERABLES Performing Organization Address [facility] Co de Phone Number [address] [phone] * MAGNESIUM BLOOD (01/30/2018 3:01 PM CDT) Pathologist [facility] Magnesium 2.0 1.6 - 2.6 mg/dL 01/30/2018 4:01 PM [facility] Comment:Confirmed by repeat analysis. Blood BLOOD SPECIMEN / Unknown Venipuncture / Unknown 01/30/2018 3:01 PM CDT 01/30/2018 3:01 PM CDT Parvin Salazar MD LAB - CHEMISTRY OR DERABLES Performing Organization Address [facility] Co de Phone Number [address] [phone] * HEPATIC FUNCTION PANEL (01/30/2018 12:55 PM CDT) Protein Total 6.9 6.0 - 8.3 g/dL 018 1:38 PM [facility] Albumin 3.7 3.4 - 5.0 g/dL 01/30/2018 1:38 PM [facility] Bilirubin Total 0.4 0.2 - 1.2 mg/dL 07/2017 1:38 PM [facility] Bilirubin Conjugated 0.2 0.0 - 0.5 mg/dL 01/30/2018 1:38 PM [facility] Bilirubin Unconjugated 0.2 Unconjugated Bilirubin is a calculated value: Reference ranges have not been established. mg/dL 01/30/2018 1:38 PM [facility] Alkaline Phosphatase 75 40 - 150 Units/L 01/30/2018 1:38 PM [facility] ALT 10 0 - 55 Units/L 01/30/2018 1:38 PM CDT [facility] AST 14 5 - 34 Units/L 01/30/2018 1:38 PM CDT [facility] Albumin/Globulin Ratio 1.2 1.1 - 2.3 01/30/2018 1:38 PM CDT [facility] Blood BLOOD SPECIMEN / Unknown Venipuncture / Unknown 01/30/2018 12:55 PM CDT 01/30/2018 1:06 PM CDT Parvin Salazar MD LAB - CHEMISTRY OR DERABLES [address] [phone] * PHOSPHORUS BLOOD (01/30/2018 12:55 PM CDT) Phosphorus 3.0 2.3 - 4.7 mg/dL 01/30/2018 1:34 PM CDT [facility] Blood BLOOD SPECIMEN / Unknown Venipuncture / Unknown 01/30/2018 12:55 PM CDT 01/30/2018 1:06 PM CDT Parvin Salazar MD LAB - CHEMISTRY OR DERABLES Performing Organization Address [facility] Co de Phone Number [address] [phone] * (ABNORMAL) MAGNESIUM BLOOD (01/30/2018 12:55 PM CDT) Magnesium <0.6(L) 1.6 - 2.6 mg/dL 01/30/2018 2:09 PM CDT [facility] Comment:Confirmed by repeat analysis. Blood BLOOD SPECIMEN / Unknown Venipuncture / Unknown 01/30/2018 12:55 PM CDT 01/30/2018 1:06 PM CDT Parvin Salazar MD LAB - CHEMISTRY OR DERABLES Performing Organization Address [facility]/ZIP Co de Phone Number [address] [phone] * ALCOHOL ETHYL BLOOD (01/30/2018 12:55 PM CDT) Pathologist [facility] Interpretation Ethanol None Detected None Detected mg/dL 01/30/2018 1:38 PM CDT [facility] Comment: Ethanol levels less than 10 mg/dL are resulted as None detected . Blood BLOOD SPECIMEN / Unknown Venipuncture / Unknown 01/30/2018 12:55 PM CDT 01/30/2018 1:06 PM CDT Parvin Salazar MD LAB - CHEMISTRY OR DERABLES [address] [phone] * (ABNORMAL) LEVETIRACETAM LEVEL (01/30/2018 12:55 PM CDT) [facility] Levetiracetam 55.2(H) 10.0 - 40.0 ug/mL 02/02/2018 2:15 PM CDT [facility] ([facility]) Blood BLOOD SPECIMEN / Unknown Venipuncture / Unknown 01/30/2018 12:55 PM CDT 01/30/2018 1:06 PM CDT Narrative [facility] ([facility]) - 02/02/2018 2:15 PM CDT Performed at: ??01 - [facility] [address] ??[id number] [employer] Job Setter: Vito Hay MD, Phone: ??[phone] Parvin Salazar MD LAB - THERAPEUTIC DRUG MONITORING ORDERABLES [facility] ([facility]) [address] [place] [address] * (ABNORMAL) VALPROIC ACID LEVEL (01/30/2018 12:55 PM CDT) Pathologist [facility] Valproic Acid Total 46(L) 50 - 100 mcg/mL 01/30/2018 1:46 PM CDT [facility] Blood BLOOD SPECIMEN / Unknown Venipuncture / Unknown 01/30/2018 12:55 PM CDT 01/30/2018 1:06 PM CDT Parvin Salazar MD LAB - CHEMISTRY OR DERABLES [facility] [address] [place] [address] * BASIC METABOLIC PANEL (CALCIUM TOTAL) (01/30/2018 12:55 PM CDT) BUN 13 7 - 26 mg/dL 01/30/2018 1:38 PM [facility] Creatinine 0.9 0.6 - 1.2 mg/dL 01/30/2018 1:38 PM [facility] Sodium 140 136 - 145 mmol/L 01/30/2018 1:38 PM [facility] Potassium 3.9 3.5 - 4.5 mmol/L 01/30/2018 1:38 PM [facility] Chloride 105 98 - 107 mmol/L 01/30/2018 1:38 PM [facility] CO2 24 22 - 29 mmol/L 01/30/2018 1:38 PM [facility] Glucose 93 70 - 115 mg/dL 01/30/2018 1:38 PM [facility] Calcium 9.2 8.4 - 10.2 mg/dL 01/30/2018 1:38 PM [facility] Anion Gap 15 8 - 18 01/30/2018 1:38 PM [facility] BUN/Creatinine Ratio 14 7 - 23 01/30/2018 1:38 PM [facility] Osmolality Calculated 290 270 - 300 mOsm/kg 01/30/2018 1:38 PM [facility] eGFR >60 >60 mL/min/1.7 3 m2 01/30/2018 1:38 PM [facility] Blood BLOOD SPECIMEN / Unknown Venipuncture / Unknown 01/30/2018 12:55 PM CDT 01/30/2018 1:06 PM CDT Parvin Salazar MD LAB - CHEMISTRY OR DERABLES [address] [place] [address], [place] [phone] * (ABNORMAL) CBC W AUTO DIFFERENTIAL (01/30/2018 12:55 PM CDT) WBC 4.4 3.5 - 10.5 10? 3 /uL 01/30/2018 1:15 PM [facility] RBC 4.58 4.30 - 5.70 10? 6 /uL 01/30/2018 1:15 PM [facility] Hemoglobin 15.2 13.5 - 17.5 g/dL 01/30/2018 1:15 PM [facility] Hematocrit 43.3 39.0 - 50.0 % 01/30/2018 1:15 PM [facility] MCV 94.5 81.0 - 97.0 fL 01/30/2018 1:15 PM [facility] MCH 33.2 28.0 - 34.0 pg 01/30/2018 1:15 PM [facility] MCHC 35.1 32.0 - 36.0 g/dL 01/30/2018 1:15 PM [facility] Platelet Count 153 150 - 400 10? 3 /uL 01/30/2018 1:15 PM [facility] RDW-SD 41.7 36.0 - 50.0 fL 01/30/2018 1:15 PM [facility] RDW-CV 12.2 11.2 - 14.8 % 01/30/2018 1:15 PM [facility] MPV 12.9(H) 9.3 - 12.8 fL 01/30/2018 1:15 PM [facility] Neutrophils % 51.8 35.0 - 70.0 % 01/30/2018 1:15 PM [facility] Lymphocytes % 39.7 19.7 - 55.1 % 01/30/2018 1:15 PM [facility] Monocytes % 5.6 3.0 - 15.0 % 01/30/2018 1:15 PM [facility] Eosinophils % 2.7 0.0 - 6.0 % 01/30/2018 1:15 PM [facility] Basophil % 0.2 0.0 - 1.5 % 01/30/2018 1:15 PM CDT [facility] Neutrophils Absolute 2.3 1.6 - 7.0 10? 3 /uL 01/30/2018 1:15 PM T [facility] Lymphocyte Absolute 1.8 0.8 - 2.9 10? 3 /uL 01/30/2018 1:15 PM CDT [facility] Monocytes Absolute 0.25 0.14 - 0.66 10? 3 /uL 01/30/2018 1:15 PM CDT [facility] Eosinophils Absolute 0.12 0.00 - 0.22 10? 3 /uL 01/30/2018 1:15 PM T [facility] Basophils Absolute 0.01 0.00 - 0.06 10? 3 /uL 01/30/2018 1:15 PM T [facility] Immature Granulocytes % 0.2 0.0 - 1.0 % 01/30/2018 1:15 PM [facility] Blood BLOOD SPECIMEN / Unknown Venipuncture / Unknown 01/30/2018 12:55 PM CDT 01/30/2018 1:06 PM CDT Parvin Salazar MD LAB - HEMATOLOGY O RDERABLES [facility] [address] [place] [address] documented in this encounter Visit Diagnoses Diagnosis Recurrent seizures (HCC)- Primary Other forms of epilepsy and recurrent seizures without mention of intractable epilepsy documented in this encounter Care Teams Assistant Front Office Manager Relationship Specialty Start Date End Date Misael Maradiaga DO PCP - General 10/03/17 09/15/20 Elizabeth Sullivan, RN Front Line Leader 10/14/17 documented as of this encounter
--- OUTSIDE RECORDS SUMMARY | 2024-06-08 05:44 | XMS_ITS | Encounter Summary ---
Author Organization [facility] Health Address [address] [place] [address] Care Team Providers Care Casey Saw Operator Name Role Phone Hiren Misael Yostjamel Primary Care Provider Elizabeth Sullivan RN Unavailable [phone] Reason for Visit * Reason Comments Seizure pt reports multiple seizures since this am. hx seizures, took last doses of gabapentin and keppra this am. Encounter Details Date Type Department Care Team (Late st Contact Info) Description 01/31/2018 11:20 PM CDT - 02/01/2018 8:06 AM T Emergency [facility] EMERGENCY DEPARTMENT [address] [place] [address] Kortney Vega MD [address] [place] [address] Seizure (HCC); At risk for medication nonadherence Discharge Disposition: Home or Self Care Social [...] Sign Reading Time Taken Comments Blood Pressure 133/77 02/01/2018 7:30 AM CDT Pulse 70 02/01/2018 7:34 AM CDT Temperature 36.1 ??C (97 ??F) 02/01/2018 7:00 AM CDT Respiratory Rate 16 02/01/2018 7:34 AM CDT Oxygen Saturation 100% 02/01/2018 7:34 AM CDT Inhaled Oxygen Concentration - - Weight 66.7 kg (147 lb) 01/31/2018 11:31 PM CDT Height 180.3 cm (5' 11 ) 01/31/2018 11:31 PM CDT Body Mass Index 20.5 01/31/2018 11:31 PM CDT documented in this encounter Functional [...] this encounter Discharge Instructions * Discharge Instructions* Power Bustos MD - 02/01/2018 4:53 AM CDT Images from the original note were not included. Please fill your new prescription for depakote and take as prescribed. Please make an appt to follow up with neurology as stated below. 1. No climbing to heights over 4-6 feet 2. No un supervised sitting in water of any kind, including bath tubs and swimming pools. Showers are preferred, no locked doors. 3. No operating anything with a motor, including lawn mowers, ATV, or cars 4. No power tools 5. You CAN ride a bicycle on a quiet street with a helmet only Recurrent Seizures in Adults WHAT YOU NEED [...] ask them during your visits. ?? 2017 [employer] Information is for End User's use only and may not be sold, redistributed or otherwise used for commercial purposes. All illustrations and images included in CareNotes?? are the copyrighted property of [employer], [employer]. or [employer]. The above information is an home care and home health aides teacher only. It is not intended as medical [...] mouth once daily 30 tablet 01/09/2018 06/10/2018 aspirin (ASPIRIN) 81 MG chew [...] by mouth 3 times daily 90 capsule 01/09/2018 04/11/2018 levETIRAcetam (KEPPRA) 750 MG tabletIndications:Epile psy with seizures of localized onset (HCC) Take 3 tablets by mouth 2 times daily 180 tablet 01/09/2018 04/11/2018 thiamine (VITAMIN B-1) 100 MG tabletIndications:Lucia ine deficiency Take 1 tablet by mouth once daily 30 tablet 01/09/2018 04/11/2018 documented as of this encounter Progress Notes * Arleen Srivastava - 02/01/2018 8:06 AM CDT Coordinator referral received. Pt currently established with PCP and has active pvt insurance. No referral at this time. Arleen Srivastava, MPH Community Mer[employer]andise Presentation Manager [facility] Emergency Department [phone] documented in this encounter Consult Notes * Josiane Escobedo MD - 02/01/2018 1:31 AM CDT Neurology Consult Note Date of Encounter: 02/01/2018 Chief Complaint: Seizure HPI: 58 year old male with PMHx of TBI, R occipital stroke c/d post stroke seizures who presents tot ED with an unwitnessed seizure at his house around 10 am on 01/31. He states he felt dizzy and fell down, had full body shaking and staring off into space which lasted for 4-5 minutes. Patient has a history of focal seizures with secondary generalization and takes Keppra 2250 mg BID and Depakote 750 mg BID. Labs in ED were significant for Depakote level of 62. He was last seen in ED on 01/30/2018 when his depakote level was 46. At that time Depakote was increased from 500 mg BID to 750 mg BID. However patient did not refill his medications and presented today with seizures. ROS: General Negative except per HPI Eyes [...] Home Medications: Current Facility-Administered Medications Medication ??? valproate (DEPACON) 750 mg in 0.9% NaCl 57.5 mL IVPB Current Outpatient Prescriptions Medication Sig ??? divalproex [...] History: No family history on file. Social History Social History Social History ??? Marital status: [...] file Social History Narrative Physical Exam: Vitals: 02/01/18 0025 02/01/18 0045 02/01/18 0100 02/01/18 0115 BP: 121/81 116/70 117/68 Pulse: 93 90 89 89 Resp: 13 15 15 15 Temp: SpO2: 97% 98% 98% 98% Weight: Cortical Function: MS: Awake, Alert, Follows Commands Oriented to Person, Place and Time Language: Fluent, Coherent, Repetition Intact VF Intact to confrontation test Neglect No visual neglect, No tactile neglect ?? Cranial Nerves: Pupils 4-3 mm BRTL, Full EOM, No ptosis or nystagmus Facial sensation intact bilaterally to LT; No facial palsy Hearing intact to finger rub bilaterally Palate symmetric; Normal tongue protrusion ?? Motor: Abnormal Movements: None Bulk: Normal Tone: Normal Strength: Appropriate for Age RUE 5/5 LUE 5/5 RLE 4/5 LLE 4/5 (ambulates w/ wheeled walker at baseline) ?? DTR: Bi Tri BR Pat Ach Toe R 2 2 2 3 2 Down L 2 2 2 3 2 Down ?? Sensory: Intact to light touch ?? Cerebellar: FNF, HKS intact bilaterally ?? Gait: Ambulates with wheeled walker, gait at baseline per patient Assessment: 58 year old male with history of post-stroke epilepsy presents to ED after a self-reported seizuresat home. He was similarly seen in ED for a seizure episode on 01/30 and was discharged on increased dose of Depakote, which he did not refill. His seizures are most likely related to being under medicated. Plan: - Load with Depakote 1 gm, one-time - Continue Depakote 750 mg BID - Continue Keppra 2250 mg BID - Follow-up in Neurology clinic with Dr. Feliciano. -Basic seizure precautions 1. No climbing to [...] up needed Case findings discussed with Dr. Walsh-Ora, Neurology Attending. Josiane Escobedo MD Neurology Resident Associated attestation - Humberto Echeverria MD - 02/01/2018 4:16 PM CDT Discussed history, examination findings, laboratory data and investigations with the resident over the telephone. Agree with the documented resident notes, diagnosis and plan of management. ?? Humberto Payan MD ?? Please see resident notes for details documented in this encounter ED Notes * Marcella Rouse RN - 02/01/2018 8:06 AM CDT Called pt, verified and attempted to provide patient results. Pt screamed and hung up phone. MURRAY Chi, RN Lead Nurse Navigator Emergency Department [phone] * Jake Esparza RN - 02/01/2018 8:05 AM CDT Patient received new shirt, new wheeled walker and cab voucher for ride home. Patient walked with walker to waiting room where he's sitting until his cab arrives. Patient denies any additional needs at this time. * Jake Esparza RN - 02/01/2018 7:37 AM CDT Patient A&O x 4 and verbalizes walking with his walker at home because of left side weakness after PMH of stroke. Patient verbalized he had his walker on the ambulance. tool worker Nuria verbalized she attempted to call [employer] for possibility the patients wheeled walker is with the ambulance company. MD Linder wrote prescription for new wheeled walker and Nuria is getting wheeled walker for patient and scheduling a cab ride home for patient. * Trista Araujo RN - 02/01/2018 7:00 AM CDT Pt dc'd to lobby via wc, pt denies any questions about dc instructions. Int dc'd with cathetar intact, skin intact, dressing applied. * Trista Araujo RN - 02/01/2018 6:46 AM CDT Pt reports he is feeling much better. Medicated per orders. Provided with food and drink. * Trista Araujo RN - 02/01/2018 6:00 AM CDT Still await med from pharmacy, providers aware. Speaking with pharmacy. * Trista Araujo RN - 02/01/2018 5:30 AM CDT Await med from pharmacy, plan to dc after med * Trista Araujo RN - 02/01/2018 4:43 AM CDT Pt sleeping in stretcher, nad noted. Even chest rise/fall observed. Continuing to monitor. * Trista Araujo RN - 02/01/2018 3:13 AM CDT Pt sleeping in stretcher, even chest rise/fall observed. Continuing to monitor. * Trista Araujo RN - 02/01/2018 2:00 AM CDT Pt sleeping in stretcher, even chest rise/fall observed. Continuing to monitor. * Trista Araujo RN - 02/01/2018 1:16 AM CDT Pt resting in stretcher, nad noted. Vss. * Power Bustos MD - 02/01/2018 12:08 AM CDT KARL Tabor JrCarter is a 58 y.o. male with hx as below, who presents with c/o seizures x 2 days. Patienthas epilepsy which was previously controlled but states he has been having seizures for the last 3 days. He presented to [facility] ED on 01/30 for seizures which were described as shaky spells with LOC. He was seen by neuro who recommended increasing his depakote. He returned today because he hadd 2 more spells today. He states he felt funny and lost consciousness. He awoke and crawled to his life alert.He did not fill his depakote order. He lives alone. Denies any new focal neuro deficit, fevers, vision trouble, OROPEZA, etoh withdrawal. Past Medical History: Diagnosis Date ??? CVA (cerebral vascular accident) ??? HTN (hypertension) ??? Seizure No past surgical history on file. No family history on file. Social History Substance Use Topics ??? Smoking status: Current Every Day Smoker Packs/day: 0.25 Years: 15.00 ??? Smokeless tobacco: Never Used ??? Alcohol use No Comment: last drink 2015 No Known Allergies No current facility-administered medications [...] Take 1 tablet by mouth once daily Review of Systems Constitutional: Negative for chills and fever. HENT: Negative for congestion and sore throat. Eyes: Negative for discharge and visual disturbance. Respiratory: Negative for cough and shortness of breath. Cardiovascular: Negative for chest pain and palpitations. Gastrointestinal: Negative for abdominal pain, nausea and vomiting. Endocrine: Negative. Genitourinary: Negative for dysuria and hematuria. Musculoskeletal: Negative for arthralgias and myalgias. Skin: Negative for rash and wound. Allergic/Immunologic: Negative. Neurological: Positive for seizures. Negative for weakness and headaches. Hematological: Negative. Psychiatric/Behavioral: Negative for agitation and behavioral problems. Physical Exam BP 123/83 Pulse 119 Temp 97.8 ??F (36.6 ??C) Resp 20 Ht 1.803 m (5' 11 ) Wt 66.7 kg (147 lb) SpO2 97% BMI 20.5 kg/m2 Physical Exam Constitutional: He is oriented to person, place, and time. He appears well- developed and well-nourished. No distress. HENT: Head: Normocephalic and atraumatic. Eyes: Conjunctivae and EOM are normal. No scleral icterus. Neck: Normal range of motion. No JVD present. No tracheal deviation present. Cardiovascular: Normal rate and regular rhythm. Pulmonary/Chest: Effort normal and breath sounds normal. Abdominal: Soft. There is no tenderness. Musculoskeletal: Normal range of motion. He exhibits no deformity. Left shoulder: He exhibits normal strength. Left hip: He exhibits normal strength. Neurological: He is alert and oriented to person, place, and time. Skin: Skin is warm and dry. Psychiatric: He has a normal mood and affect. His behavior is normal. Nursing note and vitals reviewed. Labs Reviewed BASIC METABOLIC PANEL (CALCIUM TOTAL) - Abnormal; Notable for the following: Result Value Potassium 3.4 (*) All other components within normal limits CBC W AUTO DIFFERENTIAL - Normal MAGNESIUM BLOOD - Normal VALPROIC ACID LEVEL - Normal LEVETIRACETAM LEVEL Medications - No data to display No orders to display Procedures Procedures MDM Differential Diagnosis -Seizures -Non epileptic spells -medication non adherence ED Course -Patient seen and evaluated, available studies reviewed -Prior available records reviewed -Consults obtained: Neuro -Neuro Recc: - Load with Depakote 1 gm, one-time - Continue Depakote 750 mg BID - Continue Keppra 2250 mg BID - Follow-up in Neurology clinic with Dr. Feliciano. -Basic seizure precautions 1. No climbing to [...] baseline. No further neurological work up needed -Patient received 1 gm depakote in ED -Discharged with f/u reccs Pertinent lab, imaging, and special study findings -Unremarkable -SPO2 was independently assessed and found to be 100 -Diagnostic findings to include radiological findings include final or preliminary reports as well as my own interpretation of images and special tests. Final reports may not be available until the next day and may differ. In which case patient will be appropriately contacted if necessary. This hasbeen considered in decisions about patient disposition and care. -I have reviewed the diagnostic findings with the patient and they have had an opportunity to ask me any questions they have about care, diagnosis and discharge plan. The patient is comfortable with the discharge plan. In addition to written discharge instructions, verbal discharge instructions were discussed with the patient. The patient agreed to follow-up as directed, and has been asked to return immediately to the emergency department for any new or concerning symptoms or if their conditionworsens. ED Final Diagnosis and Discharge information 1. Seizure 2. At risk for medication nonadherence Scripts Previous Rx from 01/30 Follow-up Neuro Disposition D/C home Associated attestation - Kortney Vega MD - 02/07/2018 2:34 AM CDT 02/07/2018 02:23 Patient seen with resident Dr. Bustos, management discussed I performed an independent evaluation of the patient and attest to his documentation Briefly 58 y/o male with history of seizure disorder, HTN, prior stroke presents for evaluation of seizuresat home. Reports episodes of shaking and LOC, denies tongue biting or incontinence with these episodes but states it has happened in the past. Seen in [facility] ED a few days ago and discharged with recommendation to increase his AED but has not done so. Denies recent fevers, cough, dyspnea, chest pain,palpitations, abd pain, nausea, vomiting, diarrhea, voiding symptoms, headache, new weakness. Shortly after arrival, had episode in which he told the nurse I think I'm going to have another one then had twitching for less than 60 seconds and returned immediately to baseline mental status. PMH as above SH: smoker, denies drug or alcohol use Lives alone ROS per resident note EXAM: GEN: WD, WN male, comfortable HEENT: No signs of head trauma, no tongue biting. PERRL, EOMI, conjunctiva clear NECK: supple, no JVD CHEST: BCTA, no chest wall tenderness CV: regular, rate 100, no murmurs appreciated ABD: +BS, soft, non-tender EXT: No bony tenderness or gross deformities, radial and DP pulses full NEURO: Alert and oriented x 3. CNI. Sensation intact to light touch throughout, mild LUE and LLE weakness ED course EMR reviewed, concern for pseudoseizure on discharge Not entirely surprising that patient would have additional episodes if has not started new med regimen but I was concerned about his ability to go home alone given ongoing symptoms. Patient has previously refused rehab placement Seen by Neuro who recommends discharge after AED load DX: seizure disorder, medication noncompliance DISPO: discharge * Trista Araujo RN - 02/01/2018 12:05 AM CDT Pt resting in stretcher, nad noted. Continuing to monitor. * Trista Araujo RN - 01/31/2018 11:29 PM CDT Pt reports Multiple seizures since this am. On arrival pt stated 'im going to have another seizure'shaking movement noted. During episode pt contracted and shaking. Immediately after even able to answer questions and follow commands. No incontinence or postictal state noted. No desaturation noted and airway remained patent during episode without drooling or jaw clenching. Pt on monitor will observe. * Trista Araujo RN - 01/31/2018 11:15 PM CDT Pt arrived via ems. Per ems pt reports multiple seizures since this am. Aaox3, forbes well, airway patent, rr equal and unlabored. Pt states he took his last dose of keppra and gabapentin this am. Knownhx of seizures. documented in this encounter Plan of Treatment Upcoming Encounters Date Type Department Care Team (Late st Contact Info) Description 12/05/2024 1:00 PM CDT Office Visit [facility] - Neurology [address] [place] [id number] Sean Raymundo, DO [address] [place] [id number] documented as of this encounter Procedures Procedure Name Priority Date/Time Associated Diagnosis Comments LEVETIRACETAM LEVEL STAT 02/01/2018 1 2:10 AM CDT CBC W AUTO DIFFERENTIAL STAT 02/01/2018 12:10 AM CDT BASIC METABOLIC PANEL (CALCIUM TOTAL) STAT 02/01/2018 12:10 AM CDT MAGNESIUM BLOOD STAT 02/01/2018 12:10 AM CDT VALPROIC ACID LEVEL STAT 02/01/2018 1 2:10 AM CDT documented in this encounter Results * (ABNORMAL) LEVETIRACETAM LEVEL (02/01/2018 12:10 AM CDT) Levetiracetam 73.3(H) 10.0 - 40.0 ug/mL 02/03/2018 12:17 PM CDT [facility] ([facility]) Blood BLOOD SPECIMEN / Unknown Venipuncture / Unknown 02/01/2018 12:10 AM CDT 02/01/2018 12:15 AM CDT Narrative [facility] ([facility]) - 02/03/2018 12:17 PM CDT Performed at: ??01 - [facility] ??[id number] [place] Operator: Vito Hay MD, Phone: ??[phone] Kortney Vega MD LAB - THERAPEUTIC DR DIAZ MONITORING ORDERABLES [facility] ([facility]) [address] [id number] * VALPROIC ACID LEVEL (02/01/2018 12:10 AM CDT) Valproic Acid Total 62 50 - 100 mcg/mL 02/01/2018 12:39 AM CDT [facility] Blood BLOOD SPECIMEN / Unknown Venipuncture / Unknown 02/01/2018 12:10 AM CDT 02/01/2018 12:15 AM CDT Kortney Vega MD LAB - CHEMISTRY MARSHAL MEDEROS Performing Organization Address [facility]/ZIP Co de Phone Number [address] [phone] * MAGNESIUM BLOOD (02/01/2018 12:10 AM CDT) Magnesium 1.7 1.6 - 2.6 mg/dL 02/01/2018 12:31 AM CDT [facility] Blood BLOOD SPECIMEN / Unknown Venipuncture / Unknown 02/01/2018 12:10 AM CDT 02/01/2018 12:15 AM CDT Kortney Vega MD LAB - CHEMISTRY MARSHAL MEDEROS Performing Organization Address [facility]/ZIP Co de Phone Number [address] [phone] * (ABNORMAL) BASIC METABOLIC PANEL (CALCIUM TOTAL) (02/01/2018 12:10 AM CDT) BUN 17 7 - 26 mg/dL 02/01/2018 12:31 AM CDT [facility] Creatinine 1.0 0.6 - 1.2 mg/dL 02/01/2018 12:31 AM CDT [facility] Sodium 139 136 - 145 mmol/L 02/01/2018 12:31 AM CDT [facility] Potassium 3.4(L) 3.5 - 4.5 mmol/L 02/01/2018 12:31 AM [facility] Chloride 104 98 - 107 mmol/L 02/01/2018 12:31 AM [facility] CO2 23 22 - 29 mmol/L 02/01/2018 12:31 AM [facility] Glucose 92 70 - 115 mg/dL 02/01/2018 12:31 AM [facility] Calcium 9.3 8.4 - 10.2 mg/dL 02/01/2018 12:31 AM [facility] Anion Gap 15 8 - 18 02/01/2018 12:31 AM [facility] BUN/Creatinine Ratio 17 7 - 23 02/01/2018 12:31 AM [facility] Osmolality Calculated 289 270 - 300 mOsm/kg 02/01/2018 12:31 AM [facility] eGFR >60 >60 mL/min/1.7 3 m2 02/01/2018 12:31 AM [facility] Blood BLOOD SPECIMEN / Unknown Venipuncture / Unknown 02/01/2018 12:10 AM T 02/01/2018 12:15 AM T Kortney Vega MD [facility] Organization Address City/State/ZIP Co de Phone Number [address] [phone] * CBC W AUTO DIFFERENTIAL (02/01/2018 12:10 AM T) WBC 4.4 3.5 - 10.5 10? 3 /uL 02/01/2018 12:19 AM [facility] RBC 4.30 4.30 - 5.70 10? 6 /uL 02/01/2018 12:19 AM [facility] Hemoglobin 13.9 13.5 - 17.5 g/dL 02/01/2018 12:19 AM [facility] Hematocrit 40.9 39.0 - 50.0 % 02/01/2018 12:19 AM [facility] MCV 95.1 81.0 - 97.0 fL 02/01/2018 12:19 AM [facility] MCH 32.3 28.0 - 34.0 pg 02/01/2018 12:19 AM [facility] MCHC 34.0 32.0 - 36.0 g/dL 02/01/2018 12:19 AM [facility] Platelet Count 153 150 - 400 10? 3 /uL 02/01/2018 12:19 AM [facility] RDW-SD 42.6 36.0 - 50.0 fL 02/01/2018 12:19 AM [facility] RDW-CV 12.3 11.2 - 14.8 % 02/01/2018 12:19 AM [facility] MPV 12.0 9.3 - 12.8 fL 02/01/2018 12:19 AM [facility] Neutrophils % 49.9 35.0 - 70.0 % 02/01/2018 12:19 AM [facility] Lymphocytes % 38.6 19.7 - 55.1 % 02/01/2018 12:19 AM [facility] Monocytes % 9.9 3.0 - 15.0 % 02/01/2018 12:19 AM [facility] Eosinophils % 1.4 0.0 - 6.0 % 02/01/2018 12:19 AM [facility] Basophil % 0.2 0.0 - 1.5 % 02/01/2018 12:19 AM [facility] Neutrophils Absolute 2.2 1.6 - 7.0 10? 3 /uL 02/01/2018 12:19 AM [facility] Lymphocyte Absolute 1.7 0.8 - 2.9 10? 3 /uL 02/01/2018 12:19 AM [facility] Monocytes Absolute 0.44 0.14 - 0.66 10? 3 /uL 02/01/2018 12:19 AM [facility] Eosinophils Absolute 0.06 0.00 - 0.22 10? 3 /uL 02/01/2018 12:19 AM [facility] Basophils Absolute 0.01 0.00 - 0.06 10? 3 /uL 02/01/2018 12:19 AM [facility] Immature Granulocytes % 0.2 0.0 - 1.0 % 02/01/2018 12:19 AM [facility] Blood BLOOD SPECIMEN / Unknown Venipuncture / Unknown 02/01/2018 12:10 AM CDT 02/01/2018 12:15 AM CDT Kortney Vega MD LAB - HEMATOLOGY ORD ERABLES [facility] [address] [place] [address], [facility] [phone] documented in this encounter Visit Diagnoses Diagnosis Seizure (HCC) Other convulsions At risk for medication nonadherence Nonintractable epilepsy without status epilepticus, unspecified epilepsy type (HCC) Patient's other noncompliance with medication regimen documented in this encounter Administered Medications Inactive Administered Medications - up to 3 most recent administrations Medication Order MAR Action Action Date Dose Rate Site valproate (DEPACON) 750 mg in 0.9% NaCl 57.5 mL IVPB 750 mg, at 115 mL/hr, Intravenous, DAILY, 365 doses, First dose on Tue02/01/18 at 0900, Last dose on Tue01/31/19 at 0900 $ New Bag/Syringe 02/01/2018 3:50 AM CDT 750 mg 115 mL/hr valproic acid (DEPAKENE) capsule 250 mg 250 mg, Oral, 2 TIMES DAILY, 730 doses, First dose on Tue02/01/18 at 0530, Last dose on Tue01/31/19 at 2100 $ Given 02/01/2018 6:46 AM CDT 250 mg documented in this encounter Active and Recently Administered Medications Times are shown in CDT. Scheduled Medication Order 01/30/2018 01/31/2018 02/01/2018 valproate (DEPACON) 750 mg in 0.9% NaCl 57.5 mL IVPB 750 mg, at 115 mL/hr, Intravenous, DAILY, 365 doses, First dose on Tue02/01/18 at 0900, Last dose on Tue01/31/19 at 0900 0350 ($ New Bag/Syri nge - Provider: Lotus Pagan RN - Comment: Per Dr. Vega)[id number] (Stopped - Provider: Trista Araujo RN) valproic acid (DEPAKENE) capsule 250 mg 250 mg, Oral, 2 TIMES DAILY, 730 doses, First dose on Tue02/01/18 at 0530, Last dose on Tue01/31/19 at 2100 0646 ($ Given - Prov ider: Trista Araujo, ALFRED) documented in this encounter Care Teams Casey Saw Operator Relationship Specialty Start Date End Date Misael Maradiaga DO PCP - General 10/03/17 09/15/20 Elizabeth Sullivan, ALFRED Label Coder 10/14/17 documented as of this encounter
--- OUTSIDE RECORDS SUMMARY | 2024-06-08 05:44 | XMS_ITS | Encounter Summary ---
Author Organization [facility] Health Address [address] [place] [address] Care Team Providers Care Public Speaking Professor Name Role Phone Unavailable Primary Care Provider Unavailabl e Encounter Details Date Type Department Care Team (Latest Contact Info) Description 02/20/2016 Hospital Outpatient Visit Historic [facility] MAIN LAB [address] [place] [address] Delia Carmen MD [address] [place] [address] [address] [place] [phone] Discharge Disposition: Home or Self Care Social [...] Visit [facility] - Neurology [address] [facility], [place] [phone] Sean Raymundo DO [facility] [facility] [address] [place] [id number] documented as of this encounter Procedures Procedure Name Priority Date/Time Associated Diagnosis Comments LEVETIRACETAM LEVEL Routine 02/20/2016 1 1:08 AM CDT FOLATE Routine 02/20/2016 11:08 AM CDT VITAMIN B12 Routine 02/20/2016 11:08 AM CDT TSH Routine 02/20/2016 11:08 AM CDT T4 FREE Routine 02/20/2016 11:08 AM CDT documented in this encounter Results * LEVETIRACETAM LEVEL (02/20/2016 11:08 AM CDT) Levetiracetam 23.0 10.0 - 40.0 ug/mL [facility]) Blood specimen (specimen) BLOOD SPECIMEN / Unknown 02/20/2016 11:08 AM CDT 02/20/2016 11:33 AM CDT Narrative [facility] ([facility]) - 02/23/2016 6:06 AM CDT Performed at: ??01 - [address] ??[id number] Chief Warden: Vito Hay MD, Phone: ??[phone] Delia Carmen MD LAB - THERAPEUTIC DR DIAZ MONITORING ORDERABLES [facility]) * T4 FREE (02/20/2016 11:08 AM CDT) T4 Free 0.8 0.7 - 1.5 ng/dL [facility] Blood specimen (specimen) BLOOD SPECIMEN / Unknown 02/20/2016 11:08 AM CDT 02/20/2016 11:33 AM CDT Delia Carmen MD LAB - CHEMISTRY [facility] [address] [phone] * (ABNORMAL) FOLATE (02/20/2016 11:08 AM CDT) Folate >40.0(H) 7.0 - 31.4 ng/mL [facility] Blood specimen (specimen) BLOOD SPECIMEN / Unknown 02/20/2016 11:08 AM CDT 02/20/2016 11:33 AM CDT Delia Carmen MD LAB - CHEMISTRY [facility] [address] [phone] * VITAMIN B12 (02/20/2016 11:08 AM CDT) Vitamin B12 220 213 - 816 pg/mL [facility] Blood specimen (specimen) BLOOD SPECIMEN / Unknown 02/20/2016 11:08 AM CDT 02/20/2016 11:33 AM CDT Delia Carmen MD LAB - CHEMISTRY [facility] Performing Organization Address City/[facility]/ZIP Co de Phone Number [address] [phone] * TSH (02/20/2016 11:08 AM CDT) TSH 1.091 0.350 - 4.940 uIU/mL [facility] Blood specimen (specimen) BLOOD SPECIMEN / Unknown 02/20/2016 11:08 AM CDT 02/20/2016 11:33 AM CDT Delia Carmen MD LAB - CHEMISTRY [facility] [address] [phone] documented in this encounter Visit Diagnoses Diagnosis Convulsions (HCC) documented in this encounter
--- OUTSIDE RECORDS SUMMARY | 2024-06-08 05:44 | XMS_ITS | Encounter Summary ---
Author Organization [facility] Health Address [address] [place] [address] Care Team Providers Care Polarity Tester Name Role Phone Misael Maradiaga DO Primary Care Provider Elizabeth Sullivan RN Unavailable [phone] Reason for Visit * Reason Comments Seizure pt states he feels l mami he had a minor seizure. states he feels back to his normal self at this time. Encounter Details Date Type Department Care Team (Late st Contact Info) Description 11/22/2017 10:53 AM CDT - 11/22/2017 12:05 PM CDT Emergency [facility] EMERGENCY DEPARTMENT [address] [place] [id number] Blair Dempsey MD Seizure (FORMERLY [facility]) Discharge Disposition: Home or Self Care Social [...] Sign Reading Time Taken Comments Blood Pressure 145/87 11/22/2017 10:47 AM CDT Pulse 91 11/22/2017 10:47 AM CDT Temperature 37.2 ??C (99 ??F) 11/22/2017 10:47 AM CDT Respiratory Rate 16 11/22/2017 10:47 AM CDT Oxygen Saturation 97% 11/22/2017 10:47 AM CDT Inhaled Oxygen Concentration - - [...] encounter Discharge Instructions * Discharge Instructions* Blair Dempsey MD - 11/22/2017 11:48 AM CDT Images from the original note [...] ?? You have a seizure in water. Seek care immediately if: ?? You are injured during a seizure. Contact your healthcare provider if: ?? You have a fever. ?? You are planning to get or are currently . ?? You have questions or concerns about your condition or care. Medicines: ?? Antiepileptic medicine may be given to [...] ask them during your visits. ?? 2017 [employer] Information is for End User's use only and may not be sold, redistributed or otherwise used for commercial purposes. All illustrations and images included in CareNotes?? are the copyrighted property of [employer]. or Collections. The above information is an educational fundraising director only. It is not intended as medical advice for individual conditions or treatments. Talk to your doctor, nurse or pharmacist before following any medical regimen to see if it is safe and effective for you. documented in this encounter Medications at Time of Discharge Medication Sig Dispensed Refills Start Date End Date amLODIPine (NORVASC) 5 MG tablet Take 5 mg by mouth once daily 3 09/17/2017 01/09/2018 aspirin (ASPIRIN) 81 MG chew tablet Take 81 mg by mouth once daily 04/15/2015 01/09/2018 atorvastatin (LIPITOR) 40 MG tablet Take 40 mg by mouth once daily 04/15/2015 01/30/2018 Cyanocobalamin (B-12) 1000 MCG Take 1 mg by mouth once daily 07/11/2017 01/09/2018 divalproex sprinkle (DEPAKOTE SPRINKLE) 125 MG capsule Take 4 capsules by mouth 2 times daily 240 capsule 11 10/15/2017 01/09/2018 folic acid (FOLVITE) 1 MG tablet Take 1 mg by mouth once daily 07/11/2017 01/09/2018 gabapentin (NEURONTIN) 300 MG capsule Take 300 mg by mouth 3 times daily 03/01/2017 01/09/2018 levETIRAcetam (KEPPRA) 500 MG tablet Take 1,500 mg by mouth 2 times daily 9 09/04/2017 11/28/2017 levETIRAcetam (KEPPRA) 750 MG tablet Take 2 tablets by mouth 2 times daily 120 tablet 11 10/15/2017 11/28/2017 thiamine (VITAMIN B-1) 100 MG tablet Take 100 mg by mouth once daily 0 09/19/2017 01/09/2018 traMADol (ULTRAM) 50 MG tablet Take 1 tablet by mouth every 4 hours as needed 10 tablet 10/15/2017 01/09/2018 documented as of this encounter ED Notes * Marie Willis RN - 11/22/2017 12:04 PM CDT Patient is discharging home, discharge instructions reviewed. Patient sent home with no new prescription. Patient ambulated out independently with steady gait. Patient verbalized understanding, all questions answered. * Blair Dempsey MD - 11/22/2017 11:46 AM CDT Provider contact with the patient: 11/22/2017 11:46 Bi Tabor Jr. [id number] [facility] EMERGENCY DEPARTMENT History Chief Complaint Patient presents with ??? Seizure pt states he feels like he had a minor seizure. states he feels back to his normal self at this time. HPI Comments: Pt is a 57 y.o. male with Past Medical History: No date: CVA (cerebral vascular accident) No date: HTN (hypertension) No date: Seizure here c/o Patient presents with: Seizure: pt states he feels like he had a minor seizure. states he feels back to his normal self atthis time. No f/c/n/v/d/cp/sob/weight loss. History provided by: Patient Past Medical History: Diagnosis Date ??? CVA [...] tobacco: Never Used ??? Alcohol use No ??? Drug use: No ??? Sexual activity: Not on file Other Topics Concern ??? Not on file Social History Narrative ??? No narrative on file No Known Allergies Review of Systems Review of Systems Constitutional: Negative for chills, diaphoresis, fever, malaise/fatigue and weight loss. Neurological: Negative for weakness. All other systems reviewed and are negative. Physical Exam BP 145/87 Pulse 91 Temp 99 ??F (37.2 ??C) Resp 16 SpO2 97% Physical Exam Constitutional: He is oriented to person, place, and time. He appears well- developed and well-nourished. No distress. HENT: Head: Normocephalic and atraumatic. Nose: Nose normal. Mouth/Throat: Oropharynx is clear and moist. No oropharyngeal exudate. Eyes: EOM are normal. Pupils are equal, round, and reactive to light. Right eye exhibits no discharge. Left eye exhibits no discharge. No scleral icterus. Neck: Normal range of motion. Neck supple. No JVD present. No tracheal deviation present. Cardiovascular: Normal rate, regular rhythm and normal heart sounds. Exam reveals no gallop. No murmur heard. Pulmonary/Chest: Effort normal and breath sounds normal. No respiratory distress. He has no wheezes. He has no rales. He exhibits no tenderness. Abdominal: Soft. He exhibits no distension. There is no tenderness. There is no rebound and no guarding. Musculoskeletal: Normal range of motion. He exhibits no tenderness. Lymphadenopathy: He has no cervical adenopathy. Neurological: He is alert and oriented to person, place, and time. No cranial nerve deficit. Coordination normal. Skin: Skin is warm. No rash noted. He is not diaphoretic. No erythema. No pallor. Psychiatric: He has a normal mood and affect. His behavior is normal. Judgment and thought content normal. Nursing note and vitals reviewed. Medications Current Outpatient Prescriptions Medication Sig Dispense Refill ??? divalproex sprinkle (DEPAKOTE SPRINKLE) 125 MG capsule Take 4 capsules by mouth 2 times daily 240 capsule 11 ??? levETIRAcetam (KEPPRA) 750 MG tablet Take 2 tablets by mouth 2 times daily 120 tablet 11 ??? traMADol (ULTRAM) 50 MG tablet Take 1 tablet by mouth every 4 hours as needed 10 tablet 0 ??? aspirin (ASPIRIN) 81 MG chew tablet Take 81 mg by mouth once daily ??? atorvastatin (LIPITOR) 40 MG tablet Take 40 mg by mouth once daily ??? Cyanocobalamin (B-12) 1000 MCG Take 1 mg by mouth once daily ??? folic acid (FOLVITE) 1 MG tablet Take 1 mg by mouth once daily ??? gabapentin (NEURONTIN) 300 MG capsule Take 300 mg by mouth 3 times daily ??? amLODIPine (NORVASC) 5 MG tablet Take 5 mg by mouth once daily 3 ??? thiamine (VITAMIN B-1) 100 MG tablet Take 100 mg by mouth once daily 0 ??? levETIRAcetam (KEPPRA) 500 MG tablet Take 1,500 mg by mouth 2 times daily 9 Procedures Procedures ECG Interpretation ECG Interpretation Lab/SPO2 Interpretation No results found for this visit on 11/22/17. No orders to display Progress Notes ED Course ED Course Medical Decision Making Orders Placed This Encounter ??? 0.9% NaCl IV Bolus ??? levETIRAcetam (KEPPRA) tablet 750 mg Clinical Impression Final diagnoses: Seizure Plan - monitor in ER - IVF, give one dose of keppra in ER, plan f/u with neurologist. PT ABLE TO TOLERATE PO'S, ABLE TO AMBULATE OUT OF ER W/O ASSISTANCE, PLAN TO F/U WITH PMD THIS WEEK, RETURN TO ER IF SX WORSEN/NEW SX APPEAR. Pre-hypertension/Hypertension: The patient has been informed that they may have pre-hypertension orHypertension based on a blood pressure reading in the emergency department. I recommend that the patient call the primary care provider listed on their discharge instructions or a physician of their choice this week to arrange follow up for further evaluation of possible pre- hypertension or Hypertension. The patient understands that at this time there is no evidence for a more malignant underlying process, but the patient also understands that early in the process of an illness, an initial workup canbe falsely reassuring. Routine discharge counseling was given to the patient and the patient understands that worsening, changing or persistent symptoms should prompt an immediate call or follow up with their primary physician or return for reevaluation. The importance of appropriate follow up was also discussed with the patient. More extensive discharge instructions were given in the patient???sdischarge paperwork. documented in this encounter Plan of Treatment Upcoming Encounters Date Type Department Care Team (Late st Contact Info) Description 12/05/2024 1:00 PM CDT Office Visit [facility] - Neurology [address] [place] [phone] Sean Raymundo DO [address] [place] [phone] documented as of this encounter Visit Diagnoses Diagnosis Seizure (HCC) Other convulsions documented in this encounter Administered Medications Inactive Administered Medications - up to 3 most recent administrations Medication Order MAR Action Action Date Dose Rate Site 0.9% NaCl IV Bolus 1,000 mL, at 983.61 mL/hr, Administer over 61 Minutes, NOW, 1 dose, On Tue11/22/17 at 1115 $ New Bag/Syringe 11/22/2017 11:12 AM CDT 1,000 mL 983.61 mL/hr levETIRAcetam (KEPPRA) tablet 750 mg 750 mg, Oral, NOW, 1 dose, On Tue11/22/17 at 1115, Do not crush or chew because of TASTE only. $ Given 11/22/2017 11:16 AM CDT 750 mg documented in this encounter Active and Recently Administered Medications Times are shown in CDT. Scheduled Medication Order 11/20/2017 11/21/2017 11/22/2017 0.9% NaCl IV Bolus (COMPLETED) 1,000 mL, at 983.61 mL/hr, Administer over 61 Minutes, NOW, 1 dose, On Tue11/22/17 at 1115 1112 ($ New Bag/Syri nge - Provider: Marie Willis, ALFRED)1153 (Stopped - Provider: Marie Willis RN) levETIRAcetam (KEPPRA) tablet 750 mg (COMPLETED) 750 mg, Oral, NOW, 1 dose, On Tue11/22/17 at 1115, Do not crush or chew because of TASTE only. 1116 ($ Given - Prov ider: Marie Willis RN) documented in this encounter Care Teams Polarity Tester Relationship Specialty Start Date End Date Misael Maradiaga DO PCP - General 10/03/17 09/15/20 Elizabeth Sullivan, ALFRED [employer] 10/14/17 documented as of this encounter
--- OUTSIDE RECORDS SUMMARY | 2024-06-08 05:44 | XMS_ITS | Encounter Summary ---
Author Organization [facility] Health Address [address] [place] [address] Care Team Providers Care Dealmaker Name Role Phone Misael Maradiaga DO Primary Care Provider Elizabeth Sullivan RN Unavailable [phone] Reason for Visit * Reason Comments Seizure Patient states that he had a seizure at home, friend found him getting up off the floor. patient states that his last siezure was 3 weeks ago, and that he has been complaint with meds. Encounter Details Date Type Department Care Team (Late st Contact Info) Description 06/10/2018 4:20 AM [facility] - 06/10/2018 4:17 PM [facility] Emergency [facility] EMERGENCY DEPARTMENT [address] [place] [address] Kortney Vega MD [address] [place] [address] Dimas Locke MD [address] [place] [address] Eliane Tai MD [address] [facility] [place] [address] Seizure (HCC) Discharge Disposition: Home or Self [...] Sign Reading Time Taken Comments Blood Pressure 128/72 06/10/2018 12:35 PM TIMING ADJUSTER Pulse 75 06/10/2018 12:35 PM TIMING ADJUSTER Temperature 36.8 ??C (98.3 ??F) 06/09/2018 11:[address] Respiratory Rate 16 06/10/2018 11:21 AM TIMING ADJUSTER Oxygen Saturation 100% 06/10/2018 12:35 PM TIMING ADJUSTER Inhaled Oxygen Concentration - - Weight 68 kg (150 lb) 06/09/2018 11:19 PM TIMING ADJUSTER Height 180.3 cm (5' 11 ) 06/09/2018 11:19 PM TIMING ADJUSTER Body Mass Index 20.92 06/09/2018 11:19 PM TIMING ADJUSTER documented in this encounter Functional Status Functional [...] this encounter Discharge Instructions * Discharge Instructions* Kortney Vega MD - 06/10/2018 6:50 AM TIMING ADJUSTER Images from the original note were not [...] ask them during your visits. ?? Copyright [employer] 2018 Information is for End User's use only and may not be sold, redistributed or otherwise used for commercial purposes. All illustrations and images included in CareNotes?? are the copyrighted property of [employer] or [employer] The above information is an teacher aide only. It is not intended as medical advice for individual conditions or treatments. Talk to your doctor, nurse or pharmacist before following any medical regimen to see if it is safe and effective for you. 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 Please call the office if seizures occur.) 20 tablet 2 04/11/2018 08/09/2018 Cyanocobalamin (B-12) 1000 MCGIndications:Vitamin B12 deficiency Take 1 mg by mouth once daily 30 capsule 8 04/11/2018 10/26/[address] (DEPAKOTE) 500 MG tablet Take 1 tablet by mouth 2 times daily 60 tablet 1 06/10/2018 08/07/2018 folic acid (FOLVITE) 1 MG tabletIndications:Folat e deficiency Take 1 tablet by mouth once daily 30 tablet 8 04/11/2018 10/26/2018 gabapentin (NEURONTIN) 300 MG capsuleIndications:Part ial 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, intractable, without status epilepticus (HCC) Take 1 capsule by mouth 3 times daily 90 capsule 06/10/2018 08/07/2018 levETIRAcetam (KEPPRA) 750 MG tabletIndications:Parti al 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, intractable, without status epilepticus (HCC) Take 3 tablets by mouth 2 times daily for 30 days 180 tablet 06/10/2018 01/14/2023 OXcarbazepine (TRILEPTAL) 300 MG tablet Take 1 tablet by mouth 2 times daily 60 tablet 06/10/2018 08/07/2018 thiamine (VITAMIN B-1) 100 MG tabletIndications:Lucia ine deficiency Take 1 tablet by mouth once daily 30 tablet 8 04/11/2018 10/26/2018 documented as of this encounter Progress Notes * Abimbola Lui, PT - 06/10/2018 4:17 PM CST Problem: Mobility Goal: LTG - Patient will demonstrate safe mobility requirements. Outcome: Goal Met Date Met: 06/10/18 NG ADJUSTER * Abimbola Lui, PT - 06/10/2018 3:28 PM CST [facility] Physical Medicine and Rehabilitation Physical Therapy Initial Evaluation Note and discharge summary Patient: Bi Tabor Med Record Number: [id number] Date of : 1960 Age: 58 y.o. Recommendation: PT Frequency: 1 Time Visit Baseline/ Discontinue PT Treatment/Interventions: Gait training Recommendation: No skilled PT intervention needed post hospitalization at this time Equipment Recommended: (has wheeled walker at home) Need Tech Assist: No Patient currently using Wheeled Walker and has equipment at home. No equipment needs if d/c home. (while PT working with patient, received message from [employer] that patient's walker is at his home) Nurse and Occupational Therapy contacted regarding patient status and/or discharge plan. Physician Orders: Evaluation and Treat PRECAUTIONS: Seizure Activity Level up ad daniela DIAGNOSIS: Patient Active Problem List: Seizure Past Medical History: Diagnosis Date ??? CVA (cerebral vascular accident) ??? HTN (hypertension) ??? Seizure SUBJECTIVE: Patient states he uses a walker at home, just waiting for his brother to get here PATIENT GOALS: to go home Home living: Type of Residence: Apartment Lives with:: Alone Steps to Enter: 2 Handrails: Outdoor Home Structure: One Story Equipment At Home: Grab Bars;Walker-2 Wheeled Prior Function: Mobility: Independent;With Assistive Device Fallen Within 6 Mos: 1 Have Help at Home?: Yes, there is help at home now How often is assistance provided?: (grounds maintenance worker 3x/wk) Level of Help Sufficient?: Yes At start of therapy session, patient found in bed and with no alarm Pain: Patient has a little bit pain in low back Follow-up for pain: No follow-up for pain indicated and patient agreed to proceed with treatment OBJECTIVE: General Appearance: Adult male, no distress noted Precautions: seizure Skin, Incisions, Edema: LE's intact; no edema noted Other: Vital Signs:(*Assess the 3 levels of oxygen saturations both for room air and 02 unless rest on room air is 88% or less). Rest: BP: HR: O2 SAT: Room Air L O2 Ex/Gait/Activity BP: HR: O2 SAT: Room Air L O2 Cool Down BP: HR: O2 SAT: Room Air L O2 Observations:no distress noted during activity; denies SOB or dizziness during upright mobility MENTAL STATUS: Alert and oriented times 2; able to state name and , [facility]; said the month is December; required cues for month/day/date DIRECTION FOLLOWING: Able to follow one step commands 100 % ROM: Bilateral LE WFL STRENGTH: Grossly 4/5 bilateral LE's; WFL SENSATION:denies numbness/tingling; grossly intact light touch bilateral LE TONE: normal NEGLECT: none noted COORDINATION: Decreased coordination of heel to francisco bilaterally FUNCTIONAL MOBILITY Not Tested Not Applicable Independent Stand by Assist Minimal Moderate Maximum Dependent Rolling x Scooting x Supine to/from sit x Sit to/from Stand x Bed to/ chair x x Observation: independent bed mobility; SBA to independent transfer to/from bed and return to bed following ambulation; verbal cues for walker safety during transfer BALANCE: Sitting Static: good Dynamic: good Standing Static: good minus with walker support; fair unsupported Dynamic: fair minus Observation: maintains forward flexed posture in standing, with impaired balance noted GAIT: Weight Bearing: no restrictions Distance: 250 feet Device: Wheeled Walker Assistance: Independent to Stand By Assist with verbal cues for upright posture and safety with walker managment Balance: fair Steps: not tested good endurance Observation: maintains forward flexed posture; cues required for safety with walker management at times, to stay within bounds of walker ACTIVITY TOLERANCE: Patient's activity tolerance: good TREATMENT : evaluation and gait training EDUCATION: While performing PT, Patient was instructed in:Functional mobility training/weight bearing status, Safety awareness/fall precaution, Discharge plan and Use of adaptive equipment Patient demonstrated Fair understanding of instructions given. INFORMED CONSENT TO TREATMENT: Plan of care including recommended therapy, goals and frequency, discussed with patient who understands and agrees to proceed. ASSESSMENT: Patient demonstrates independence/ baseline with mobility/exercise. No continued Physical Therapy indicated at this time. Short Term Goals: Goal Formation With patient, Patient will transfer supine to/from sit Independently and Met, Sit tostand goal: Independently and Met and Patient will ambulate > 200 feet, Independently and With assistive device Shelter Goal(s): Patient to be independent/baseline with functional mobility and self care and be able to safely discharge to prior level of care Equipment Issued: gait belt Plan: If patient is discharged from the facility, this note serves as a discharge summary if further physical therapy visits did not occur. Following therapy session, patient left in bed and with RN, Yary Lui, PT 06/10/2018 NG ADJUSTER * Abimbola Lui, PT - 06/10/2018 3:28 PM CST [facility] Department of Physical Medicine & Rehabilitation Progress Note Patient: Bi Tabor [facility] Record Number: [id number] Date of : 1960 Age: 58 y.o. 06/10/18 1530 PT G-Codes Functional Assessment Tool Used Get Up and Go Score 3 Functional Limitation Mobility: Walking and moving around Mobility: Walking and Moving Around Current Status (G8978) CK Mobility: Walking and Moving Around Goal Status (G8979) CK Mobility: Walking and Moving Around Discharge Status (G8980) CK Abimbola Lui, PT 06/10/2018 5:38 PM NG ADJUSTER * Naa Staton OT - 06/10/2018 3:14 PM CST [facility] Department of Physical Medicine & Rehabilitation Progress Note Patient: Bi Tabor [facility] Record Number: [id number] Date of : 1960 Age: 58 y.o. Spoke with team regarding OT eval and treat orders for administering walker to patient, informed team OT is unable to administer walkers and that would require PT eval and treat orders and activity orders. MD entered PT and activity orders and cancelled OT orders. Please re-order if skilled OT services indicated. Naa Staton, OT 06/10/2018 3:17 PM NG ADJUSTER documented in this encounter Consult Notes * Abimbola Padilla MD - 06/10/2018 5:30 AM CSTAssociated Order(s): IP CONSULT TO NEUROLOGY NEUROLOGY CONSULT NOTE Date of Encounter: 06/10/18 Chief Complaint: Concerns for seizure HISTORY: Source: History was obtained from the patient and the medical chart HPI: Bi Tabor is a 58 y.o. year old male with PMH of stroke, post-stroke epilepsy, HTN, previous alcohol dependence, cervical osteoarthritis and vitamin B 12 deficiency who presents with concerns for seizure activity at home. Of note, pt is a poor historian as he turned his body to face the wall and pulled the covers over his head and refused to talk to me part way through history taking. Bi Chau Jr was found on the floor by a family member around 8-9:30PM last night. There were no indications of urinary/bowel incontinence, tongue biting, foaming at the mouth. Bi Chau Jr reports that hedid not LOC, but he is unable to tell me what he recalls. Reports good compliance with his home AEDs (Keppra 2250 mg BID, Trileptal 300 mg BID, Depakote DR 500 mg BID); last took meds around 8 or 9pm last night. Otherwise, he maybe had some slight nausea recently, but otherwise denies recent fever,URI sxs, diarrhea, abdominal pain, dysuria. Pt refused to answer if he uses alcohol, tobacco or illicit drugs. Since arriving in the ED, VSS and pt AOx3 with nonfocal neurological exam per ED report. Valproic acid level pending, and otherwise CMP and CBC relatively unremarkable. Briefly his seizure hx is as follows per Dr. Feliciano (last note 04/11/18): - age of onset 50 yo - aura: tingling sensation of R-side - ictus: 1. dyscognitive events --> sz frequency once every 1-few months; 2. Convulsions and tongue biting --> sz frequency once every 1-2 months - post-ictal: confusion - reportedly has hx of poor med compliance. Also known to have breakthrough seizures in the settingof good compliance too. - he was recently [facility] in [facility] ED on 04/30/2018 for 2 seizures at home, but returned to baseline in ED. Was instructed to continue home AEDs and was given rx for clonazepam to prevent seizure clustering Past Medical History: Past Medical History: Diagnosis Date ??? CVA (cerebral vascular accident) ??? HTN (hypertension) ??? Seizure Past Surgical History: No past surgical history on file. Family History: No family history on file. [...] ??? Not on file Social History Narrative Allergies: No Known Allergies Home Medications: No current facility-administered medications on file prior to encounter. Current Outpatient Prescriptions on File Prior to Encounter Medication Sig Dispense Refill ??? amLODIPine (NORVASC) 5 MG tablet Take 1 tablet by mouth once daily 30 tablet 5 ??? aspirin (ASPIRIN) 81 MG chew tablet Take 1 tablet by mouth once daily 30 tablet 5 ??? clonazePAM (KLONOPIN) 0.5 MG tablet Take 1 tablet by mouth every 8 hours as needed (After a seizure to prevent clustering. Please call the office if seizures occur.) 20 tablet 2 ??? Cyanocobalamin (B-12) 1000 MCG Take 1 mg by mouth once daily 30 capsule 8 ??? divalproex DR (DEPAKOTE) 500 MG tablet Take 1 tablet by mouth 2 times daily 60 tablet 8 ??? folic acid (FOLVITE) 1 MG tablet Take 1 tablet by mouth once daily 30 tablet 8 ??? gabapentin (NEURONTIN) 300 MG capsule Take 1 capsule by mouth 3 times daily 90 capsule 0 ??? levETIRAcetam (KEPPRA) 750 MG tablet Take 3 tablets by mouth 2 times daily 180 tablet 0 ??? OXcarbazepine (TRILEPTAL) 300 MG tablet Take 1 tablet by mouth 2 times daily 60 tablet 8 ??? thiamine (VITAMIN B-1) 100 MG tablet Take 1 tablet by mouth once daily 30 tablet 8 Current Medications: 0.9% NaCl 3 mL Intracatheter q8h ??? SALINE LOCK, INSERT AND MAINTAIN AND 0.9% NaCl AND 0.9% NaCl Review of Systems (ROS): Pertinent findings per HPI OBJECTIVE: No intake or output data in the 24 hours ending 06/10/18 0531 PHYSICAL EXAM Temp: [98.3 ??F (36.8 ??C)] 98.3 ??F (36.8 ??C) Pulse: [97] 97 Resp: [18] 18 BP: (136)/(87) 136/87 General: NAD, upset that he was woken up from his sleep - limited exam due to poor cooperation Head: Head NC, poor dentition Neck: Supple Lungs: Breathing comfortably on RA Abdomen: +BS, Soft, ND, NT Extremities: No edema; No cyanosis Neurological Exam: Cortical Function MS: Awake, Alert; Oriented to Person, Place, Time, Situation Follows a few simple commands, then refuses as he wants to sleep Language: Fluency, Comprehension intact VF: Intact to confrontation Neglect: No visual neglect, No tactile neglect Cranial Nerves Pupils 4 mm and BRTL; EOMI; No Ptosis Facial movements intact (upper and lower) Hearing intact to voice Motor Abnormal Movement: None Bulk: Grossly Normal Strength: Moving all extremities freely antigravity Sensory Intact to Light Touch, noxious stimuli BL throughout Cerebellar EARNEST Gait and Balance EARNEST Laboratory studies reviewed: CBC Recent Labs Component Name 06/09/18 2355 04/30/18 1025 03/31/18 1615 WBC 7.7 4.9 6.0 HGB 17.3 15.3 15.4 HCT 52.4* 44.4 44.7 MCV 99.2* 96.1 95.5 BMP Recent Labs Component Name 06/09/18 2355 04/30/18 1025 03/31/18 1615 CREATININE 1.1 1.0 0.9 BUN 16 14 12 NA 143 140 140 CL 102 105 106 CO2 25 21* 25 LFTs Recent Labs Component Name 06/09/18 2355 ALT 11 AST 16 ALKPHOS 74 TBILI 0.4 DIABETES Recent Labs Component Name 06/09/18 2355 GLU 85 CREATININE 1.1 Valproic level 108 today ASSESSMENT AND PLAN: Bi Tabor is a 58 y.o. year old male with PMH of stroke, post-stroke epilepsy, HTN, previous alcohol dependence, cervical osteoarthritis and vitamin B 12 deficiency who presents with concerns for seizure activity at home as he was found down on the floor by family member - no signs of tongue biting, urinary/bowel incontinence. AOx4 and nonfocal exam, back to baseline by arrival to ED. Pt reports good compliance to home meds; Depakote level appropriate. - continue home AED meds: Keppra 2250 mg BID, Trileptal 300 mg BID, Depakote DR 500 mg BID - outpatient rEEG - follow up in neurology clinic in 6 weeks Case findings discussed with Dr. Saba, General neurology attending over the phone. Abimbola Padilla MD 06/10/2018 5:31 AM NG ADJUSTER Associated attestation - Verito Saba MD - 06/10/2018 9:15 PM TIMING ADJUSTER Attending note: Pt was discussed on the phone with the neurology resident but patient was not seen in person by theattending. Record was not reviewed by the attending. History and exam are based on the resident's report. I agree with the assessment and plan as discussed. Thank you for the consultation. Verito Saba M.D Attending documented in this encounter ED Notes * Yary Medina RN - 06/10/2018 4:16 PM CST Patient is stable at the time of discharge. Discharge instructions given, allowing time for patientquestions. All questions addressed. VSS, NAD noted. Pt's brother picked up pt and this RN went overdischarge instructions with brother as well. Brother to help pt with obtaining scripts. NG ADJUSTER * Yary Medina RN - 06/10/2018 3:47 PM CST Per EMS, pt's walker was left at his residence. Pt's brother called at this time to supervisor picking crew pt. ETA20 minutes NG ADJUSTER * Eliane Tai MD - 06/10/2018 3:28 PM CST Physician Transition Note 3:28 PM Care assumed from Dr. Locke Briefly, this is a 58 y.o. male with Seizure. Patient has a known seizure disorder. He was in the process of being discharged from the ED when he had another seizure which caused him to fall. He subsequently had a workup to evaluate the fall which was unremarkable. He was given his home seizure medi cations. He normally uses a walker at home however he he has lost his walker. PT and OT saw the patient and are going to provide patient with a walker. Brother will come to pick patient up. Plan is to discharge once patient has walker Chief Complaint Patient presents with ??? Seizure Patient states that he had a seizure at home, friend found him getting up off the floor. patient states that his last siezure was 3 weeks ago, and that he has been complaint with meds. Please refer to previous Attending note for further details. BP 128/72 Pulse 75 Temp 98.3 ??F (36.8 ??C) Resp 16 Ht 1.803 m (5' 11 ) Wt 68 kg (150 lb) SpO2 100%BMI 20.92 kg/m2 ED Course 3:29 PM: Patient checked and evaluated. He has no complaints currently. Awaiting PT OT with walker. 3:54 PM: PTT arrive with walker. Patient did well with walker. Received notification from [facility] that they left his walker at home. So his walker should be at his residence. Brother to come pickpatient up. Pt is comfortable with plan. Will DC. He expressed understanding of all discharge, RTED precautions, and follow up instructions. ICD-10-CM 1. Seizures R56.9 EEG AWAKE OR DROWSY ROUTINE CT HEAD WO CONTRAST CT CERVICAL SPINE WO CONTRAST 2. Seizure R56.9 3. Hypertension, unspecified type I10 amLODIPine (NORVASC) 5 MG tablet 4. Partial 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, intractable, without status epilepticus G40.019 gabapentin (NEURONTIN) 300 MG capsule levETIRAcetam (KEPPRA) 750 MG tablet Dispo: DC NG ADJUSTER * Dimas Locke MD - 06/10/2018 1:48 PM CST Patient signed out to me by at 06:10 AM The patient is being evaluated for Seizure, At this time the patient's condition is Stable At this time the following studies are pending: Labs Pending: Labs Reviewed CBC W AUTO DIFFERENTIAL - Abnormal; Notable for the following: Result Value Hematocrit 52.4 (*) MCV 99.2 (*) All other components within normal limits COMPREHENSIVE METABOLIC PANEL - Abnormal; Notable for the following: Calcium 11.1 (*) Protein Total 9.3 (*) Anion Gap 20 (*) Albumin/Globulin Ratio 1.0 (*) All other components within normal limits VALPROIC ACID LEVEL - Abnormal; Notable for the following: Valproic Acid Total 101 (*) All other components within normal limits Ekg/imaging: CT HEAD WO CONTRAST Final Result EXAMINATION: 1. Computed tomography (CT) of the head without contrast 2. CT of the cervical spine without contrast HISTORY: 58-year-old male status post fall TECHNIQUE: CT of the head and cervical spine was performed without contrast according to standard protocol. Images through the cervicothoracic junction were repeated due to artifact on the initial acquisition. COMPARISON: CT head dated 04/30/2018, MRI cervical spine from 02/13/[address] cervical spine from 08/29/2016 FINDINGS: Head: Evaluation of the inferior cerebellum and temporal lobes is limited secondary to motion and streak artifact. No acute intracranial hemorrhage is identified. No evidence of acute cerebral infarction is identified. Old infarct of the right occipital lobe is unchanged from the prior examination. Small, chronic appearing, lacunar infarction of the left thalamus is also unchanged from the prior examination. Moderate chronic microvascular ischemic changes are seen. There is moderate cerebral and cerebellar volume loss, greater than expected for age. Scattered intracranial carotid artery calcification are seen. The basal cisterns are widely patent. No mass effect or midline shift is identified. The intraorbital structures are intact. Mucous retention cysts are identified in the right maxillary sinus. The remaining paranasal sinuses and mastoid air cells demonstrate no acute CT abnormality. No acute calvarial fracture is identified. Trace right supraorbital soft tissue edema is identified. A 2 x 0.8 cm well-defined hypodense lesion is seen in the left para midline occipital scalp, likely a sebaceous cyst, unchanged. Cervical spine: 3 mm retrolisthesis of C6 on C7 is unchanged from the prior examination. No acute fracture or compression deformity is identified in the cervical spine. There is a reversal of the normal cervical lordosis centered at C5. Moderate degenerative changes are present C5-6 and C6-7 with near complete loss of disc space height, endplate irregularities and vertebral body sclerosis, increased since the study from 2017. There is mild narrowing of the spinal canal at C5-6 and C6-7. Moderate uncovertebral hypertrophy is noted at these levels leading to mild bilateral foraminal stenosis. The facet joints are maintained with severe degenerative changes at left C2-3 level. The lung apices are clear. IMPRESSION: 1. No acute intracranial abnormality. No acute calvarial fracture 2. No evidence of acute fracture the cervical spine. Degenerative changes as described above. I, Dr. LATRICE ORTIZ have personally reviewed and interpreted this examination/study. This report was electronically signed by LATRICE ORTIZ on 06/10/2018 10:[address] CERVICAL SPINE WO CONTRAST Final Result EXAMINATION: 1. Computed tomography (CT) of the head without contrast 2. CT of the cervical spine without contrast HISTORY: 58-year-old male status post fall TECHNIQUE: CT of the head and cervical spine was performed without contrast according to standard protocol. Images through the cervicothoracic junction were repeated due to artifact on the initial acquisition. COMPARISON: CT head dated 04/30/2018, MRI cervical spine from 02/13/[address] cervical spine from 08/29/2016 FINDINGS: Head: Evaluation of the inferior cerebellum and temporal lobes is limited secondary to motion and streak artifact. No acute intracranial hemorrhage is identified. No evidence of acute cerebral infarction is identified. Old infarct of the right occipital lobe is unchanged from the prior examination. Small, chronic appearing, lacunar infarction of the left thalamus is also unchanged from the prior examination. Moderate chronic microvascular ischemic changes are seen. There is moderate cerebral and cerebellar volume loss, greater than expected for age. Scattered intracranial carotid artery calcification are seen. The basal cisterns are widely patent. No mass effect or midline shift is identified. The intraorbital structures are intact. Mucous retention cysts are identified in the right maxillary sinus. The remaining paranasal sinuses and mastoid air cells demonstrate no acute CT abnormality. No acute calvarial fracture is identified. Trace right supraorbital soft tissue edema is identified. A 2 x 0.8 cm well-defined hypodense lesion is seen in the left para midline occipital scalp, likely a sebaceous cyst, unchanged. Cervical spine: 3 mm retrolisthesis of C6 on C7 is unchanged from the prior examination. No acute fracture or compression deformity is identified in the cervical spine. There is a reversal of the normal cervical lordosis centered at C5. Moderate degenerative changes are present C5-6 and C6-7 with near complete loss of disc space height, endplate irregularities and vertebral body sclerosis, increased since the study from 2017. There is mild narrowing of the spinal canal at C5-6 and C6-7. Moderate uncovertebral hypertrophy is noted at these levels leading to mild bilateral foraminal stenosis. The facet joints are maintained with severe degenerative changes at left C2-3 level. The lung apices are clear. IMPRESSION: 1. No acute intracranial abnormality. No acute calvarial fracture 2. No evidence of acute fracture the cervical spine. Degenerative changes as described above. I, Dr. LATRICE ORTIZ have personally reviewed and interpreted this examination/study. This report was electronically signed by LATRICE ORTIZ on 06/10/2018 10:58 AM . plans patient to be discharged home unable to locate his walker about to discharge patient has seizure and hit the floor on exam no obvious abrasion or injury noted CT scan of head and C-spine patient now awake and conversant denies any pain anywhere or difficulty in breathing PT OT consult to get a walker for home social economist helping arrangements to get home NG ADJUSTER * Yary Medina RN - 06/10/2018 12:33 PM CST Patient is resting comfortably at this time. NAD noted. TERESAS, RN will continue to monitor. NG ADJUSTER * Elmo Tena RN - 06/10/2018 11:21 AM CST Pt resting comfortably in bed at this time, no acute distress noted. Bedside report to Yary SIMON. NG ADJUSTER * Elmo Tena RN - 06/10/2018 10:13 AM CST Pt back to department, now alert, reoriented to situation. NG ADJUSTER * Elmo Tena RN - 06/10/2018 9:56 AM CST Pt to CT with RN on continuous gambling monitor. NG ADJUSTER * Power Bustos MD - 06/10/2018 9:38 AM CST 9:38 AM Care assumed from Dr. Martinez, Briefly, this is a 58 y.o. male who is being evaluated for seizures. Significant Findings include long h/o seizure d/o on three AEDs. Seen by neuro. Will discharge with AED refills and f/u with neuro. Neuro also recommended o/p EEG. Please refer to previous resident's note for further details. BP 142/85 Pulse 88 Temp 98.3 ??F (36.8 ??C) Resp 16 Ht 1.803 m (5' 11 ) Wt 68 kg (150 lb) SpO2 97% BMI 20.92 kg/m2 ED Course: ?? Pt seen and evaluated. ?? Dosed with home AEDs ?? Discharged awaiting transport home ?? Patient waiting for his walker which he believes was lost en route ?? Prior to leaving patient experienced another seizure ?? Fell to the floor and briefly seized. No obvious signs of trauma ?? CT Head and CT C Spine to evaluate for trauma ?? Trauma workup negative ?? Patient will discharge home and f/u with Neuro o/p ?? Awaiting PT/OT eval for replacement walker ?? Seen by PT/OT given walker ?? Discharge ready once his ride arrives ?? F/u with neuro EDDx: Final diagnoses: Seizures (Primary) Seizure Hypertension, unspecified type Partial 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, intractable, without status epilepticus NG ADJUSTER * Elmo Tena RN - 06/10/2018 9:27 AM CST Pt noted by ERP and resident to be seizing. Pt c-spine protected, airway protected, assisted back to bed, side rails with seizure pads put back up. No acute trauma or injury noted. Pt post-ictal, oriented to self, states that he is at his apartment and is unable to determine time. Seizure activity stopped spontaneously prior to administration of medications. NG ADJUSTER * Elmo Tena RN - 06/10/2018 9:02 AM CST Pt ambulates with unsteady gait to bathroom, tolerated well. Denies further complaints or concerns at this time. NG ADJUSTER * Elmo Tena RN - 06/10/2018 8:44 AM CST Pt reports that he had a walker upon transport to the hospital, no walker found about patient care area or storage areas in department, no personal equipment documented. Resident notified. [facility] contacted, states that they will contact crew and call ER back if walker is located. NG ADJUSTER * Sachin Green MD - 06/10/2018 4:45 AM CST Images from the original note were not included. Provider contact with the patient: 06/10/2018 04:45 Bi Tabor [id number] [facility] EMERGENCY DEPARTMENT History Chief Complaint Patient presents with ??? Seizure Patient states that he had a seizure at home, friend found him getting up off the floor. patient states that his last siezure was 3 weeks ago, and that he has been complaint with meds. Bi Tabor Jr. is a 58 y.o.male with PMHx of CVA, HTN and seizures that presented to [facility] ED for a seizure that occurred prior to arrival. Patient states family found him on the floor. He is a known patient to [facility] and Neurology service. He has been on Keppra, Trileptal and Depakote since last time he was seen and reports good compliance with medications. Denies tongue biting, urinary incontinence, or bowel incontinence. Patient denies abdominal pain, vomiting, diarrhea, headache, epistaxis, sore throat, cough, extremity injuries, chest pain, shortness of breath, fever, chills, neck pain, back pain, or vision changes. Patient has no other medical complaints at this time. He follows with [facility] Neurology Service. 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 CVA [...] file Social History Narrative Review of Systems Review of Systems Constitutional: Negative for chills, fever and malaise/fatigue. HENT: Negative. Eyes: Negative for blurred vision and double vision. Respiratory: Negative for cough and shortness of breath. Cardiovascular: Negative for chest pain and palpitations. Gastrointestinal: Positive for nausea. Negative for abdominal pain, diarrhea and vomiting. Genitourinary: Negative. Musculoskeletal: Negative. Skin: Negative. Neurological: Positive for dizziness and seizures. Negative for tingling, tremors, sensory change, speech change, focal weakness, loss of consciousness, weakness and headaches. Endo/Heme/Allergies: Negative. Psychiatric/Behavioral: Negative for memory loss and substance abuse. Physical Exam BP 136/87 Pulse 97 Temp 98.3 ??F (36.8 ??C) Resp 18 Ht 1.803 m (5' 11 ) Wt 68 kg (150 lb) SpO2 100% BMI 20.92 kg/m2 Physical Exam Constitutional: He is oriented to person, place, and time. He appears well-developed. HENT: Head: Normocephalic. Head is without abrasion, without contusion and without laceration. Mouth/Throat: Uvula is midline and mucous membranes are normal. Abnormal dentition. Cardiovascular: Normal rate and regular rhythm. Exam reveals no gallop and no friction rub. No murmur heard. Pulmonary/Chest: Effort normal and breath sounds normal. No respiratory distress. Abdominal: Soft. Bowel sounds are normal. He exhibits no distension. There is no tenderness. Musculoskeletal: Normal range of motion. Neurological: He is alert and oriented to person, place, and time. He has normal reflexes. Skin: Skin is warm and dry. Psychiatric: He has a normal mood and affect. His behavior is normal. Judgment and thought content normal. Medications Current Outpatient Prescriptions Medication Sig Dispense Refill ??? amLODIPine (NORVASC) 5 MG tablet Take 1 tablet by mouth once daily 30 tablet 5 ??? aspirin (ASPIRIN) 81 MG chew tablet Take 1 tablet by mouth once daily 30 tablet 5 ??? clonazePAM (KLONOPIN) 0.5 MG tablet Take 1 tablet by mouth every 8 hours as needed (After a seizure to prevent clustering. Please call the office if seizures occur.) 20 tablet 2 ??? Cyanocobalamin (B-12) 1000 MCG Take 1 mg by mouth once daily 30 capsule 8 ??? divalproex DR (DEPAKOTE) 500 MG tablet Take 1 tablet by mouth 2 times daily 60 tablet 8 ??? folic acid (FOLVITE) 1 MG tablet Take 1 tablet by mouth once daily 30 tablet 8 ??? gabapentin (NEURONTIN) 300 MG capsule Take 1 capsule by mouth 3 times daily 90 capsule 0 ??? levETIRAcetam (KEPPRA) 750 MG tablet Take 3 tablets by mouth 2 times daily 180 tablet 0 ??? OXcarbazepine (TRILEPTAL) 300 MG tablet Take 1 tablet by mouth 2 times daily 60 tablet 8 ??? thiamine (VITAMIN B-1) 100 MG tablet Take 1 tablet by mouth once daily 30 tablet 8 Procedures Procedures ECG Interpretation ECG Interpretation Lab/SPO2 Interpretation Hospital Encounter on 06/10/18 CBC W AUTO DIFFERENTIAL Result Value Ref Range WBC 7.7 3.5 - 10.5 10??3/uL RBC 5.28 4.30 - 5.70 10??6/uL Hemoglobin 17.3 13.5 - 17.5 g/dL Hematocrit 52.4 (H) 39.0 - 50.0 % MCV 99.2 (H) 81.0 - 97.0 fL MCH 32.8 28.0 - 34.0 pg MCHC 33.0 32.0 - 36.0 g/dL Platelet Count 154 150 - 400 10??3/uL RDW-SD 46.0 36.0 - 50.0 fL RDW-CV 12.4 11.2 - 14.8 % MPV 12.1 9.3 - 12.8 fL nRBC Absolute 0.00 0 10??3/uL nRBC Auto 0.0 0 /100 WBC Neutrophils % 54.3 35.0 - 70.0 % Lymphocytes % 33.7 19.7 - 55.1 % Monocytes % 8.5 3.0 - 15.0 % Eosinophils % 2.9 0.0 - 6.0 % Basophil % 0.3 0.0 - 1.5 % Neutrophils Absolute 4.2 1.6 - 7.0 10??3/uL Lymphocyte Absolute 2.6 0.8 - 2.9 10??3/uL Monocytes Absolute 0.65 0.14 - 0.66 10??3/uL Eosinophils Absolute 0.22 0.00 - 0.45 10??3/uL Basophils Absolute 0.02 0.00 - 0.06 10??3/uL Immature Granulocytes % 0.3 0.0 - 1.0 % COMPREHENSIVE METABOLIC PANEL Result Value Ref Range BUN 16 7 - 26 mg/dL Creatinine 1.1 0.6 - 1.2 mg/dL Sodium 143 136 - 145 mmol/L Potassium 4.4 3.5 - 4.5 mmol/L Chloride 102 98 - 107 mmol/L CO2 25 22 - 29 mmol/L Glucose 85 70 - 115 mg/dL Calcium 11.1 (H) 8.4 - 10.2 mg/dL Protein Total 9.3 (H) 6.0 - 8.3 g/dL Albumin 4.6 3.4 - 5.0 g/dL Bilirubin Total 0.4 0.2 - 1.2 mg/dL Alkaline Phosphatase 74 40 - 150 Units/L ALT 11 0 - 55 Units/L AST 16 5 - 34 Units/L Anion Gap 20 (H) 8 - 18 BUN/Creatinine Ratio 15 7 - 23 Osmolality Calculated 296 270 - 300 mOsm/kg Albumin/Globulin Ratio 1.0 (L) 1.1 - 2.3 eGFR >60 >60 mL/min/1.73 m2 No orders to display Progress Notes ED Course Patient evaluated at bedside and found in no distress. No tongue biting, no urinary/bowel incontinence, no post-ictal state. Patient ordered valproic acid level. Neurology evaluated patient and foundhim with no weakness, no post ictal state and no signs of concerning or worrisome clinical signs. Neurology recommended EEG as an outpatient with follow up in 6 weeks in Neurology clinic Medical Decision Making Orders Placed This Encounter ??? CBC W AUTO DIFFERENTIAL ??? COMPREHENSIVE METABOLIC PANEL ??? VALPROIC ACID LEVEL ??? AND Linked Order Group ??? 0.9% NaCl injection 3 mL ??? 0.9% NaCl injection 1-10 mL Clinical Impression Final diagnoses: None NG ADJUSTER Associated attestation - Kortney Vega MD - 06/11/2018 3:23 AM TIMING ADJUSTER 06/11/2018 03:02 Patient seen with resident Dr. Green, management discussed. I performed an independent assessment of the patient and attest to his documentation except as noted below. Briefly 58 y/o male with history of CVA, seizures, HTN presents after presumed seizure. Patient states he remembers shaking then lowered himself to the ground. Describes history of both GM seizures and partial complex seizures, although he does not recall being told these specific diagnoses in past. Found on floor by family, no tongue biting or incontinence. Reports good compliance with his meds. Follows with [facility] neurology, reports good compliance with his AED regimen. Despite this, he has frequent ED visits for seizures including 04/30/2018, 03/31/2018, 03/03/2018, 01/31/2018. Denies fevers, cough, dyspnea, abd pain, vomiting, diarrhea, voiding symptoms, unusual headache, voiding symptoms. PMH as above SH: smoker, denies ETOH or illicits Uses walker at home ROS per resident note Exam non-toxic elderly male HEENT: suspected left posterior scalp lipoma, no signs of head trauma, MMM with poor dentition but no tongue biting or dental trauma NECK: no posterior midline tenderness, FROM without pain CHEST: no respiratory distress, BCTA CV: regular, rate 80's, no murmur appreciated ABD: +BS, soft, non-tender EXT: No bony tenderness or gross deformities, FROM without pain, radial and DP pulses intact NEURO: Alert and oriented x 3, CNI. Sensation intact to light touch in all extremities, mile left sided weakness from prior CVA ED course: EMR reviewed, difficult to control seizures, sometimes due to non-compliance but some true breakthrough seizures as well Labs reassuring Neuro consulted given difficult to control seizures, no changes in AED regimen recommended Discharge papers written but awaiting ride home at sign out DX: breakthrough seizures documented in this encounter Plan of Treatment Upcoming Encounters Date Type Department Care Team (Late st Contact Info) Description 12/05/2024 1:00 PM CDT Office Visit [facility] - Neurology [address] [place] [address], [facility] [address] Sean Raymundo, DO [address] [place] [address] [place] [address] documented as of this encounter Procedures Procedure Name Priority Date/Time Associated Diagnosis Comments PT EVAL AND TREAT Routine 06/10/2018 1:[address] CERVICAL SPINE WO CONTRAST STAT 06/10/2018 10:21 AM TIMING ADJUSTER Seizures (HCC) CT HEAD WO CONTRAST STAT 06/10/2018 1 0:21 AM TIMING ADJUSTER Seizures (HCC) VALPROIC ACID LEVEL STAT 06/10/2018 5 :41 AM TIMING ADJUSTER CBC W AUTO DIFFERENTIAL STAT 06/09/2018 11:55 PM TIMING ADJUSTER COMPREHENSIVE METABOLIC PANEL STAT 06/09/2018 11:55 PM TIMING ADJUSTER documented in this encounter Results * CT CERVICAL SPINE WO CONTRAST (06/10/2018 10:21 AM TIMING ADJUSTER) Anatomical Region Laterality Modality Spine Computed Tomogra phy 06/10/2018 10:2 4 AM TIMING ADJUSTER Impressions 06/10/2018 10:58 AM TIMING ADJUSTER IMPRESSION: 1. No acute intracranial abnormality. No acute calvarial fracture 2. No evidence of acute fracture the cervical spine. Degenerative changes as described above. I, Dr. LATRICE ORTIZ have personally reviewed and interpreted this examination/study. This report was electronically signed by LATRICE ORTIZ ??on 06/10/2018 10:58 AM . Narrative 06/10/2018 10:58 AM TIMING ADJUSTER EXAMINATION: 1. Computed tomography (CT) of the head without contrast 2. CT of the cervical spine without contrast HISTORY: 58-year-old male status post fall TECHNIQUE: CT of the head and cervical spine was performed without contrast according to standard protocol. Images through the cervicothoracic junction were repeated due to artifact on the initial acquisition. COMPARISON: CT head dated 04/30/2018, MRI cervical spine from 02/13/[address] cervical spine from 08/29/2016 FINDINGS: Head: Evaluation of the inferior cerebellum and temporal lobes is limited secondary to motion and streak artifact. No acute intracranial hemorrhage is identified. No evidence of acute cerebral infarction is identified. Old infarct of the right occipital lobe is unchanged from the prior examination. Small, chronic appearing, lacunar infarction of the left thalamus is also unchanged from the prior examination. Moderate chronic microvascular ischemic changes are seen. There is moderate cerebral and cerebellar volume loss, greater than expected for age. Scattered intracranial carotid artery calcification are seen. The basal cisterns are widely patent. No mass effect or midline shift is identified. The intraorbital structures are intact. Mucous retention cysts are identified in the right maxillary sinus. The remaining paranasal sinuses and mastoid air cells demonstrate no acute CT abnormality. No acute calvarial fracture is identified. Trace right supraorbital soft tissue edema is identified. A 2 x 0.8 cm well-defined hypodense lesion is seen in the left para midline occipital scalp, likely a sebaceous cyst, unchanged. Cervical spine: 3 mm retrolisthesis of C6 on C7 is unchanged from the prior examination. No acute fracture or compression deformity is identified in the cervical spine. There is a reversal of the normal cervical lordosis centered at C5. Moderate degenerative changes are present C5-6 and C6-7 with near complete loss of disc space height, endplate irregularities and vertebral body sclerosis, increased since the study from 2016. There is mild narrowing of the spinal canal at C5-6 and C6-7. Moderate uncovertebral hypertrophy is noted at these levels leading to mild bilateral foraminal stenosis. The facet joints are maintained with severe degenerative changes at left C2-3 level. The lung apices are clear. Procedure Note Latrice Ortiz MD - 06/10/2018 EXAMINATION: 1. Computed tomography (CT) of the head without contrast 2. CT of the cervical spine without contrast HISTORY: 58-year-old male status post fall TECHNIQUE: CT of the head and cervical spine was performed without contrast according to standard protocol. Images through the cervicothoracic junction were repeated due to artifact on the initial acquisition. COMPARISON: CT head dated 04/30/2018, MRI cervical spine from 02/13/2018and CT cervical spine from 08/29/2016 FINDINGS: Head: Evaluation of the inferior cerebellum and temporal lobes is limited secondary to motion and streak artifact. No acute intracranial hemorrhage is identified. No evidence of acute cerebral infarction is identified. Old infarct of the right occipitallobe is unchanged from the prior examination. Small, chronic appearing,lacunar infarction of the left thalamus is also unchanged from the prior examination. Moderate chronic microvascular ischemic changes are seen. There is moderate cerebral and cerebellar volume loss, greater than expected for age. Scattered intracranial carotid artery calcificationare seen. The basal cisterns are widely patent. No mass effect or midline shift is identified. The intraorbital structures are intact. Mucous retention cysts are identified in the right maxillary sinus. The remaining paranasal sinuses and mastoid air cells demonstrate no acute CT abnormality. No acute calvarial fracture is identified. Trace right supraorbital soft tissue edema is identified. A 2 x 0.8 cm well-defined hypodense lesion is seenin the left para midline occipital scalp, likely a sebaceous cyst,unchanged. Cervical spine: 3 mm retrolisthesis of C6 on C7 is unchanged from the prior examination. No acute fracture or compression deformity is identified in the cervical spine. There is a reversal of the normal cervical lordosis centered atC5. Moderate degenerative changes are present C5-6 and C6-7 with nearcomplete loss of disc space height, endplate irregularities and vertebral body sclerosis, increased since the study from 2016. There is mild narrowingof the spinal canal at C5-6 and C6-7. Moderate uncovertebral hypertrophy is noted at these levels leading to mild bilateral foraminal stenosis. The facet joints are maintained with severe degenerative changes at leftC2-3 level. The lung apices are clear. IMPRESSION: 1. No acute intracranial abnormality. No acute calvarial fracture 2. No evidence of acute fracture the cervical spine. Degenerativechanges as described above. Dr. LATRICE Thomason have personally reviewed and interpreted this examination/study. This report was electronically signed by LATRICE ORTIZ on 06/10/2018 10:58 AM . Power Bustos MD CT ORDERABLES * CT HEAD WO CONTRAST (06/10/2018 10:21 AM TIMING ADJUSTER) Anatomical Region Laterality Modality Head Computed Tomogra phy 06/10/2018 10:2 4 AM TIMING ADJUSTER Impressions 06/10/2018 10:58 AM TIMING ADJUSTER IMPRESSION: 1. No acute intracranial abnormality. No acute calvarial fracture 2. No evidence of acute fracture the cervical spine. Degenerative changes as described above. IDr. LATRICE have personally reviewed and interpreted this examination/study. This report was electronically signed by LATRICE ORTIZ ??on 06/10/2018 10:58 AM . Narrative 06/10/2018 10:58 AM TIMING ADJUSTER EXAMINATION: 1. Computed tomography (CT) of the head without contrast 2. CT of the cervical spine without contrast HISTORY: 58-year-old male status post fall TECHNIQUE: CT of the head and cervical spine was performed without contrast according to standard protocol. Images through the cervicothoracic junction were repeated due to artifact on the initial acquisition. COMPARISON: CT head dated 04/30/2018, MRI cervical spine from 02/13/[address] cervical spine from 08/29/2016 FINDINGS: Head: Evaluation of the inferior cerebellum and temporal lobes is limited secondary to motion and streak artifact. No acute intracranial hemorrhage is identified. No evidence of acute cerebral infarction is identified. Old infarct of the right occipital lobe is unchanged from the prior examination. Small, chronic appearing, lacunar infarction of the left thalamus is also unchanged from the prior examination. Moderate chronic microvascular ischemic changes are seen. There is moderate cerebral and cerebellar volume loss, greater than expected for age. Scattered intracranial carotid artery calcification are seen. The basal cisterns are widely patent. No mass effect or midline shift is identified. The intraorbital structures are intact. Mucous retention cysts are identified in the right maxillary sinus. The remaining paranasal sinuses and mastoid air cells demonstrate no acute CT abnormality. No acute calvarial fracture is identified. Trace right supraorbital soft tissue edema is identified. A 2 x 0.8 cm well-defined hypodense lesion is seen in the left para midline occipital scalp, likely a sebaceous cyst, unchanged. Cervical spine: 3 mm retrolisthesis of C6 on C7 is unchanged from the prior examination. No acute fracture or compression deformity is identified in the cervical spine. There is a reversal of the normal cervical lordosis centered at C5. Moderate degenerative changes are present C5-6 and C6-7 with near complete loss of disc space height, endplate irregularities and vertebral body sclerosis, increased since the study from 2017. There is mild narrowing of the spinal canal at C5-6 and C6-7. Moderate uncovertebral hypertrophy is noted at these levels leading to mild bilateral foraminal stenosis. The facet joints are maintained with severe degenerative changes at left C2-3 level. The lung apices are clear. Procedure Note Latrice Ortiz MD - 06/10/2018 EXAMINATION: 1. Computed tomography (CT) of the head without contrast 2. CT of the cervical spine without contrast HISTORY: 58-year-old male status post fall TECHNIQUE: CT of the head and cervical spine was performed without contrast according to standard protocol. Images through the cervicothoracic junction were repeated due to artifact on the initial acquisition. COMPARISON: CT head dated 04/30/2018, MRI cervical spine from 02/13/2018and CT cervical spine from 08/29/2016 FINDINGS: Head: Evaluation of the inferior cerebellum and temporal lobes is limited secondary to motion and streak artifact. No acute intracranial hemorrhage is identified. No evidence of acute cerebral infarction is identified. Old infarct of the right occipitallobe is unchanged from the prior examination. Small, chronic appearing,lacunar infarction of the left thalamus is also unchanged from the prior examination. Moderate chronic microvascular ischemic changes are seen. There is moderate cerebral and cerebellar volume loss, greater than expected for age. Scattered intracranial carotid artery calcificationare seen. The basal cisterns are widely patent. No mass effect or midline shift is identified. The intraorbital structures are intact. Mucous retention cysts are identified in the right maxillary sinus. The remaining paranasal sinuses and mastoid air cells demonstrate no acute CT abnormality. No acute calvarial fracture is identified. Trace right supraorbital soft tissue edema is identified. A 2 x 0.8 cm well-defined hypodense lesion is seenin the left para midline occipital scalp, likely a sebaceous cyst,unchanged. Cervical spine: 3 mm retrolisthesis of C6 on C7 is unchanged from the prior examination. No acute fracture or compression deformity is identified in the cervical spine. There is a reversal of the normal cervical lordosis centered atC5. Moderate degenerative changes are present C5-6 and C6-7 with nearcomplete loss of disc space height, endplate irregularities and vertebral body sclerosis, increased since the study from 2017. There is mild narrowingof the spinal canal at C5-6 and C6-7. Moderate uncovertebral hypertrophy is noted at these levels leading to mild bilateral foraminal stenosis. The facet joints are maintained with severe degenerative changes at leftC2-3 level. The lung apices are clear. IMPRESSION: 1. No acute intracranial abnormality. No acute calvarial fracture 2. No evidence of acute fracture the cervical spine. Degenerativechanges as described above. I, Dr. LATRICE ORTIZ have personally reviewed and interpreted this examination/study. This report was electronically signed by LATRICE ORTIZ on 06/10/2018 10:58 AM . Power Bustos MD CT ORDERABLES * (ABNORMAL) VALPROIC ACID LEVEL (06/10/2018 5:41 AM TIMING ADJUSTER) Valproic Acid Total 101(H) 50 - 100 mcg/mL 06/10/2018 6:20 AM TIMING ADJUSTER [facility] Blood BLOOD SPECIMEN / Unknown Venipuncture / Unknown 06/10/2018 5:41 AM TIMING ADJUSTER 06/10/2018 5:41 AM TIMING ADJUSTER Kortney Vega MD LAB - CHEMISTRY [facility] Organization Address City/State/ZIP Co de Phone Number [address] [phone] * (ABNORMAL) COMPREHENSIVE METABOLIC PANEL (06/09/2018 11:55 PM TIMING ADJUSTER) BUN 16 7 - 26 mg/dL 06/10/2018 12:31 AM [facility] Creatinine 1.1 0.6 - 1.2 mg/dL 06/10/2018 12:31 AM [facility] Sodium 143 136 - 145 mmol/L 06/10/2018 12:31 AM [facility] Potassium 4.4 3.5 - 4.5 mmol/L 06/10/2018 12:31 AM [facility] Chloride 102 98 - 107 mmol/L 06/10/2018 12:31 AM [facility] CO2 25 22 - 29 mmol/L 06/10/2018 12:31 AM [facility] Glucose 85 70 - 115 mg/dL 06/10/2018 12:31 AM [facility] Calcium 11.1(H) 8.4 - 10.2 mg/dL 06/10/2018 12:31 AM [facility] Protein Total 9.3(H) 6.0 - 8.3 g/dL 06/10/2018 12:31 AM [facility] Albumin 4.6 3.4 - 5.0 g/dL 06/10/2018 12:31 AM [facility] Bilirubin Total 0.4 0.2 - 1.2 mg/dL 06/10/2018 12:31 AM [facility] Alkaline Phosphatase 74 40 - 150 Units/L 06/10/2018 12:31 AM [facility] ALT 11 0 - 55 Units/L 06/10/2018 12:31 AM [facility] AST 16 5 - 34 Units/L 06/10/2018 12:31 AM [facility] Anion Gap 20(H) 8 - 18 06/10/2018 12:31 AM [facility] BUN/Creatinine Ratio 15 7 - 23 06/10/2018 12:31 AM [facility] Osmolality Calculated 296 270 - 300 mOsm/kg 06/10/2018 12:31 AM [facility] Albumin/Globulin Ratio 1.0(L) 1.1 - 2.3 06/10/2018 12:31 AM [facility] eGFR >60 >60 mL/min/1.7 3 m2 06/10/2018 12:31 AM [facility] Blood BLOOD SPECIMEN / Unknown Venipuncture / Unknown 06/09/2018 11:55 PM TIMING ADJUSTER 06/09/2018 11:58 PM TIMING ADJUSTER Kortney Vega MD LAB - CHEMISTRY [facility] Organization Address City/State/ZIP Co de Phone Number [facility] [address] [phone] * (ABNORMAL) CBC W AUTO DIFFERENTIAL (06/09/2018 11:55 PM TIMING ADJUSTER) WBC 7.7 3.5 - 10.5 10? 3 /uL 06/10/2018 12:01 AM [facility] RBC 5.28 4.30 - 5.70 10? 6 /uL 06/10/2018 12:01 AM [facility] Hemoglobin 17.3 13.5 - 17.5 g/dL 06/10/2018 12:01 AM [facility] Hematocrit 52.4(H) 39.0 - 50.0 % 06/10/2018 12:01 AM [facility] MCV 99.2(H) 81.0 - 97.0 fL 06/10/2018 12:01 AM [facility] MCH 32.8 28.0 - 34.0 pg 06/10/2018 12:01 AM [facility] MCHC 33.0 32.0 - 36.0 g/dL 06/10/2018 12:01 AM [facility] Platelet Count 154 150 - 400 10? 3 /uL 06/10/2018 12:01 AM [facility] RDW-SD 46.0 36.0 - 50.0 fL 06/10/2018 12:01 AM [facility] RDW-CV 12.4 11.2 - 14.8 % 06/10/2018 12:01 AM [facility] MPV 12.1 9.3 - 12.8 fL 06/10/2018 12:01 AM [facility] nRBC Absolute 0.00 0 10? 3 /uL 06/10/2018 12:01 AM [facility] nRBC Auto 0.0 0 /100 WBC 06/10/2018 12:01 AM [facility] Neutrophils % 54.3 35.0 - 70.0 % 06/10/2018 12:01 AM [facility] Lymphocytes % 33.7 19.7 - 55.1 % 06/10/2018 12:01 AM [facility] Monocytes % 8.5 3.0 - 15.0 % 06/10/2018 12:01 AM [facility] Eosinophils % 2.9 0.0 - 6.0 % 06/10/2018 12:01 AM [facility] Basophil % 0.3 0.0 - 1.5 % 06/10/2018 12:01 AM [facility] Neutrophils Absolute 4.2 1.6 - 7.0 10? 3 /uL 06/10/2018 12:01 AM [facility] Lymphocyte Absolute 2.6 0.8 - 2.9 10? 3 /uL 06/10/2018 12:01 AM [facility] Monocytes Absolute 0.65 0.14 - 0.66 10? 3 /uL 06/10/2018 12:01 AM [facility] Eosinophils Absolute 0.22 0.00 - 0.45 10? 3 /uL 06/10/2018 12:01 AM [facility] Basophils Absolute 0.02 0.00 - 0.06 10? 3 /uL 06/10/2018 12:01 AM [facility] Immature Granulocytes % 0.3 0.0 - 1.0 % 06/10/2018 12:01 AM [facility] Blood BLOOD SPECIMEN / Unknown Venipuncture / Unknown 06/09/2018 11:55 PM TIMING ADJUSTER 06/09/2018 11:58 PM [facility] Kortney Vega MD LAB - HEMATOLOGY ORD ERABLES Performing Organization Address City/State/[facility] Co de Phone Number [facility] [address] [place] [address] documented in this encounter Visit Diagnoses Diagnosis Seizures (HCC)- Primary Other convulsions Seizure (HCC) Other convulsions Hypertension, unspecified type Partial 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, intractable, without status epilepticus (HCC) documented in this encounter Administered Medications Inactive Administered Medications - up to 3 most recent administrations Medication Order MAR Action Action Date Dose Rate Site 0.9% NaCl injection 1-10 mL 1-10 mL, Intracatheter, PRN, Other, peripheral line flush, Starting on Tue06/09/18 at 2340, Until 1/12/19 at 1717, Flush peripheral IV catheter with 1-10 mL of normal saline before and after medications and prn to clear blood from the line or to verify patency. 0.9% NaCl injection 3 mL 3 mL, Intracatheter, EVERY 8 HOURS, 1095 doses, First dose on 06/10/18 at 0600, Last dose on 06/09/19 at 2200, Flush peripheral IV catheter with 3 mL of normal saline every [address] (DEPAKOTE) tablet 500 mg 500 mg, Oral, NOW, 1 dose, On 06/10/18 at 0700, Do not crush, chew, or cut in half. $ Given 06/10/2018 8:54 AM TIMING ADJUSTER 500 mg levETIRAcetam (KEPPRA) tablet 2,250 mg 2,250 mg, Oral, NOW, 1 dose, On 06/10/18 at 0700, Do not crush or chew because of TASTE only. $ Given 06/10/2018 8:55 AM TIMING ADJUSTER 2,250 mg OXcarbazepine (TRILEPTAL) tablet 300 mg 300 mg, Oral, 2 TIMES DAILY, 730 doses, First dose on 06/10/18 at 0800, Last dose on 06/09/19 at 2000, Wear gloves when handling. Avoid direct contact with skin and mucous membranes. $ Given 06/10/2018 8:55 AM TIMING ADJUSTER 300 mg documented in this encounter Active and Recently Administered Medications Times are shown in TIMING ADJUSTER. Scheduled Medication Order 06/08/2018 06/09/2018 06/10/2018 0.9% NaCl injection 3 mL(Linked Group 1) 3 mL, Intracatheter, EVERY 8 HOURS, 1095 doses, First dose on 06/10/18 at 0600, Last dose on 06/09/19 at 2200, Flush peripheral IV catheter with 3 mL of normal saline every 8 hours. 0819 (Not Administer ed - Provider: Elmo Tena RN - Reason: Patient sleeping)1545 (Not Administered - Provider: Yary Medina RN - Reason: See Comments) divalproex DR (DEPAKOTE) tablet 500 mg (COMPLETED) 500 mg, Oral, NOW, 1 dose, On 06/10/18 at 0700, Do not crush, chew, or cut in half. 0854 ($ Given - Prov ider: Elmo Tena RN) levETIRAcetam (KEPPRA) tablet 2,250 mg (COMPLETED) 2,250 mg, Oral, NOW, 1 dose, On 06/10/18 at 0700, Do not crush or chew because of TASTE only. 0855 ($ Given - Prov ider: Elmo Tena RN) OXcarbazepine (TRILEPTAL) tablet 300 mg 300 mg, Oral, 2 TIMES DAILY, 730 doses, First dose on 06/10/18 at 0800, Last dose on 06/09/19 at 2000, Wear gloves when handling. Avoid direct contact with skin and mucous membranes. 0855 ($ Given - Prov ider: Elmo Tena RN) PRN Medication Order 06/08/2018 06/09/2018 06/10/2018 0.9% NaCl injection 1-10 mL(Linked Group 1) 1-10 mL, Intracatheter, PRN, Other, peripheral line flush, Starting on Tue06/09/18 at 2340, Until 06/10/18 at 1717, Flush peripheral IV catheter with 1-10 mL of normal saline before and after medications and prn to clear blood from the line or to verify patency. Linked Groups Order Group 1: SALINE LOCK, INSERT AND MAINTAIN (CANCELED) Routine, CONTINUOUS, Starting on Tue06/09/18 at 2345, Until Specified, New collection And 0.9% NaCl injection 3 mLJump to med 3 mL, Intracatheter, EVERY 8 HOURS, 1095 doses, First dose on 06/10/18 at 0600, Last dose on 06/09/19 at 2200, Flush peripheral IV catheter with 3 mL of normal saline every 8 hours. And 0.9% NaCl injection 1-10 mLJump to med 1-10 mL, Intracatheter, PRN, Other, peripheral line flush, Starting on Tue06/09/18 at 2340, Until 06/10/18 at 1717, Flush peripheral IV catheter with 1-10 mL of normal saline before and after medications and prn to clear blood from the line or to verify patency. documented in this encounter Care Teams Dealmaker Relationship Specialty Start Date End Date Misael Maradiaga DO PCP - General 10/03/17 09/15/20 Elizabeth Sullivan, RN Didactic Program In Dietetics Director 10/14/17 documented as of this encounter
--- OUTSIDE RECORDS SUMMARY | 2024-06-08 05:44 | XMS_ITS | Encounter Summary ---
Author Organization [facility] Health Address [address] [facility] [place] [address] Care Team Providers Care Drop Count Associate Name Role Phone Misael Maradiagajamel Primary Care Provider Elizabeth Sullivan RN Unavailable Encounter Details Date Type Department Care Team (Late st Contact Info) Description 10/26/2018 10:00 AM CDT Office Visit [facility] [address] [place] [address] Ck Feliciano MD [address] [place] [phone] Partial 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, intractable, without status epilepticus (HCC) (Primary Dx); Vitamin B12 deficiency; Folate deficiency; Thiamine deficiency Social History Tobacco Use [...] Sign Reading Time Taken Comments Blood Pressure 142/92 10/26/2018 9:44 AM CDT Pulse 70 10/26/2018 9:44 AM CDT Temperature - - Respiratory Rate - - Oxygen Saturation - - Inhaled Oxygen Concentration - - Weight 62.1 kg (137 lb) 10/26/2018 9:44 AM CDT Height 180.3 cm (5' 11 ) 10/26/2018 9:44 AM CDT Body Mass Index 19.11 10/26/2018 9:44 AM CDT documented in this encounter Functional [...] * Patient Instructions* Ck Feliciano MD - 10/26/2018 10:31 AM CDT 1) Levetiractam 1000 mg tablets, take 2 tablets twice a day 2) Depakote DR 500 mg tablets, take 1 tablets twice a day 3) Oxcarbazepine 300 mg tablets, take 8-[id number]-[id number]-half tablet twice a day 4) Clonazepam 0.5 mg, take tablet as needed after a seizure if a seizure occur to prevent seizure cluster - CAN STOP GABAPENTIN documented in this encounter Progress Notes * kC Feliciaon MD - 10/26/2018 10:20 AM CDT Epilepsy Clinic Note PCP Misael Maradiaga Date of Encounter: 10/26/2018 Chief Complaint: Seizures Gait difficulty AGE OF ONSET 50-year-old SEMIOLOGY - Aura Tingling sensation over the right side - Ictus 1. Dyscongitive events 2. Convulsions, tongue bites - Post-ictus Confusion SEIZURE CONTROL Seizure frequency 1. 1 event every 2 weeks 2. 1 event every 1 month Seizure free interval Uncontrolled Date of last seizure 1. 04/11/2018 2. 02/2018 Action Plan - MEDICATION Name Dosage Frequency AED Level Start Levetiractam 1000 mg 2 - [address] 500 mg 1 - 1 Oxcarbazepine 300 mg 1.5 - 1.5 Clonazepam 0.5 mg PRN COMPLIANCE Erratic TREATMENT HISTORY Name Allergy/Side Effects/Ineffectiveness Phenytoin EE07/2015 [...] Clinic for follow up. Age of onset [id number]. Clinical semiology described as (Aura) tingling sensation [...] Levetiracetam was increased and Depakote was added. - He does have erratic compliance at times, but still has breakthrough seizures even with good compliance. Last generalized convulsions occurred in 02/2018, which resulted in ER visit. Again presented to ED on 10/21/2018, and found to have subtherapeutic AED level, suggestive of erratic compliance. Endorsed dizziness with Gabapentin. ROS: General Negative except per HPI Eyes [...] Medications: Current Outpatient Prescriptions Medication Sig ??? amLODIPine (NORVASC) 5 MG tablet Take 1 tablet by mouth once daily ??? aspirin (ASPIRIN) 81 MG chew tablet Take 1 tablet by mouth once daily ??? clonazePAM (KLONOPIN) 0.5 MG tablet Take 1 tablet by mouth 2 times daily as needed for Anxiety ??? Cyanocobalamin (B-12) 1000 MCG Take 1 mg by mouth once daily ??? divalproex DR (DEPAKOTE) 500 MG tablet Take 1 tablet by mouth 2 times daily ??? folic acid (FOLVITE) 1 MG tablet Take 1 tablet by mouth once daily ??? gabapentin (NEURONTIN) 300 MG capsule Take 1 capsule by mouth 3 times daily ??? ibuprofen (MOTRIN) 600 MG tablet ??? levETIRAcetam (KEPPRA) 750 MG tablet Take 3 tablets by mouth every 8 hours for 30 days ??? OXcarbazepine (TRILEPTAL) 300 MG tablet Take 1.5 tablets by mouth 2 times daily ??? thiamine (VITAMIN B-1) 100 MG [...] file Social History Narrative Physical Exam: Vitals: 10/26/18 0944 BP: 142/92 Pulse: 70 Weight: 137 lb (62.1 kg) Height: 5' [...] tongue bites. - He does have erratic compliance. Again presented to ED on 10/21/2018, and found to have subtherapeutic AED level, suggestive of erratic compliance. Endorsed dizziness with Gabapentin, will discontinue.. - Following changes were made to his AED regimen Levetiractam 750 mg 3 - 3 * Unchanged Depakote DR 500 mg 1 - 1 * Discontinued Oxcarbazepine 300 mg 1.5 - 1.5 Clonazepam 0.5 mg PRN *Unchanged Gabapentin Discontinued - He will need more frequent appointment, and asked for him to come again in 8 weeks to ensure goodcontrol/compliance/tolerability. Plan CBC/CMP/LEV/VPA/OXC Levels [...] 2 years, or sooner if clinically deteriorated. Ck Feliciano MD documented in this encounter Plan of Treatment Upcoming Encounters Date Type Department Care Team (Late st Contact Info) Description 12/05/2024 1:00 PM CDT Office Visit [facility] - Neurology [address] [facility] [place] [phone] Sean Raymundo, [address] [place] [address] [place] [phone] documented as of this encounter Visit Diagnoses Diagnosis Partial 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, intractable, without status epilepticus (HCC)- Primary Vitamin B12 deficiency Other B-complex deficiencies Folate deficiency Other B-complex deficiencies Thiamine deficiency Other and unspecified manifestations of thiamine deficiency documented in this encounter Care Teams Drop Count Associate Relationship Specialty Start Date End Date Misael Maradiaga DO PCP - General 10/03/17 09/15/20 Elizabeth Sullivan, RN Absorption Plant Operator Helper 10/14/17 documented as of this encounter
--- OUTSIDE RECORDS SUMMARY | 2024-06-08 05:44 | XMS_ITS | Encounter Summary ---
Author Organization [facility] Health Address [address] [place] [address] Care Team Providers Care School Bus Driver/Teacher Assistant Name Role Phone Misael Maradiaga DO Primary Care Provider Elizabeth Sullivan RN Unavailable [phone] Reason for Visit * Reason Comments Seizure Pt bibems from home for unwitnessed seizure. Pt arrives A&Ox3 with swelling to forehead. Per EMS and pt, this swelling is from a previous fall, not from seizure activity today. Encounter Details Date Type Department Care Team (Late st Contact Info) Description 03/31/2018 2:56 PM CDT - 03/31/2018 6:29 PM CDT Emergency [facility] EMERGENCY DEPARTMENT [address] [place] [address] Kortney Vega MD [address] [place] [address] Seizure (HCC) Discharge Disposition: Home or Self [...] Sign Reading Time Taken Comments Blood Pressure 158/70 03/31/2018 2:45 PM CDT Pulse 110 03/31/2018 2:45 PM CDT Temperature 36.9 ??C (98.5 ??F) 03/31/2018 2:32 PM CD T Respiratory Rate 20 03/31/2018 2:45 PM CDT Oxygen Saturation 98% 03/31/2018 2:45 PM CDT Inhaled Oxygen Concentration - - Weight 72.1 kg (159 lb) 03/31/2018 2:32 PM CDT Height 180.3 cm (5' 11 ) 03/31/2018 2:32 PM CDT Body Mass Index 22.18 03/31/2018 2:32 PM CDT documented in this encounter Functional [...] * Discharge Instructions* Kortney Vega MD - 03/31/2018 6:06 PM CDT Images from the original note were not included. Continue your current Keppra dose Increase the Depakote to 1 gm (four tablets) twice daily Follow up with Dr. Feliciano next week as scheduled Recurrent Seizures in Adults WHAT YOU NEED [...] ask them during your visits. ?? Copyright [employer] 2018 Information is for End User's use only and may not be sold, redistributed or otherwise used for commercial purposes. All illustrations and images included in CareNotes?? are the copyrighted property of [employer]. or [employer] The above information is an medicaid biller only. It is not intended as medical [...] once daily 30 capsule 5 01/09/2018 04/11/2018 folic acid (FOLVITE) 1 MG tabletIndications:Folat e [...] 01/09/2018 04/11/2018 documented as of this encounter ED Notes * Cierra Tong - 03/31/2018 2:56 PM CDT Bed: C 7 Expected date: 03/31/18 Expected time: 2:56 PM Means of arrival: Comments: teresa * Shanta Gore RN - 03/31/2018 2:47 PM CDT Pt bibems from home for unwitnessed seizure. Pt arrives A&Ox3 with swelling to forehead. Per EMS and pt, this swelling is from a previous fall, not from seizure activity today. * Kortney Vega MD - 03/31/2018 2:41 PM CDT ED Attending Note Interval History: Bi Tabor Jr. is a 58 y.o.male presenting to the ED for a seizure that occurred prior to arrival. Patient states that bystanders told him it lasted x1 minute. Reports good compliance with medications. Denies tongue biting, urinary incontinence, or bowel incontinence. Patient states that he had aseizure several days ago causing him to fall, large area of bruising to forehead from previous seizure that he was not evaluated for. Patient denies abdominal pain, nausea, vomiting, diarrhea, headache, epistaxis, sore throat, cough, extremity injuries, chest pain, shortness of breath, fever, chills, neck pain, back pain, or vision changes. Patient has no other medical complaints at this time. Hefollows with Dr. Lucas and has an appointment next week. PMH: HTN, CVA, Seizure Disorder PSH: Denies SH: Smoker, +MJ, denies ETOH Past Medical History: Diagnosis Date ??? CVA [...] Psychiatric: Negative for SI, hallucinations, anxiety Vitals: 03/31/18 1432 03/31/18 1445 BP: 143/87 158/70 Pulse: 107 (!) 110 Resp: 20 20 Temp: 98.5 ??F (36.9 ??C) SpO2: 98% 98% Weight: 72.1 kg (159 lb) Height: 1.803 m (5' 11 ) Exam: Constitutional: well developed, well nourished, no acute distress HENT: normocephalic, large hematoma with abrasion to glabella, mildly tender about superior orbits b/l, no TTP to inferior orbit rims or midface, moist oral mucosa without dental trauma or tongue biting Eyes: PERRL, EOMI, conjunctiva normal Neck: supple, normal ROM, no JVD, no tenderness Cardiovascular: regular rate and rhythm, no gallops, murmurs, or rubs Respiratory: no respiratory distress, clear to auscultation bilaterally Abdomen: positive bowel sounds, soft, non-tender, non-distended Genitourinary: deferred Musculoskeletal: no gross deformities or bony tenderness to palpation, FROM throughout, pulses intact Skin: warm, dry, no rashes Neurological: awake, alert&OX3, CNI, sensation intact to light touch in all extremities, strength 5+/5 throughout Psychiatric: mood and affect normal Medical Decision Makin. 58 y/o male with seizures difficult to control despite being on multiple AED's with high dose Keppra. Will speak with neuro for possible change in regimen. Differential diagnosis considered: Seizure due to Medication Noncompliance vs Breakthrough Seizure vs Electrolyte Abnormality vs CHI/ICH from recent fall, Pseudoseizure Plan: Check levels of AED's, CT head and facial bones given apparent trauma, load with additional Keppra and possible Depakote pending levels. Results: Labs Reviewed CBC W AUTO DIFFERENTIAL - Normal BASIC METABOLIC PANEL (CALCIUM TOTAL) - Normal MAGNESIUM BLOOD - Normal VALPROIC ACID LEVEL - Normal LEVETIRACETAM LEVEL CT HEAD WO CONTRAST Final Result EXAMINATION: [...] fracture. Dictated by Carrie Paiz M.D. (residential therapist). I, Dr. LATRICE ORTIZ have personally reviewed and interpreted this examination/study. This report was electronically signed by LATRICE ORTIZ on 03/31/2018 3:[address] FACIAL BONES WO CONTRAST Final Result EXAMINATION: 1. Computed [...] fracture. Dictated by Carrie Paiz M.D. (residential therapist). I, Dr. LATRICE ORTIZ have personally reviewed and interpreted this examination/study. This report was electronically signed by LATRICE ORTIZ on 03/31/2018 3:51 PM . ED course: The patient's Oxygen Saturation Monitor was interpreted by me. The reading was 98%. The patient wason room air at the time of the reading. This is interpreted as normal. 5:45 PM - Spoke to Neurology, they will talk to their Attending about possible regimen change and call back. 6:02 PM - Spoke to Neurology, recommends giving an extra dose of Depkaote now and increase dose to 1G BID. Consult Yes -Neurology Procedure done at this time No Ultrasound done at this time No CRITICAL CARE IN THE ED No Orders and Medicine administered during this encounter: Orders Placed This Encounter ??? CT HEAD WO CONTRAST ??? CT FACIAL BONES WO CONTRAST ??? CBC W AUTO DIFFERENTIAL ??? BASIC METABOLIC PANEL (CALCIUM TOTAL) ??? MAGNESIUM BLOOD ??? LEVETIRACETAM LEVEL ??? VALPROIC ACID LEVEL ??? levETIRAcetam (KEPPRA) 1,000 mg in 100 mL IVPB ??? divalproex DR (DEPAKOTE) tablet [address] (DEPAKOTE) tablet 750 mg (not administered) levETIRAcetam (KEPPRA) 1,000 mg in 100 mL IVPB (0 mg Intravenous Stopped 03/31/18 1645) Clinical Impression: 1. Seizure Disposition: Discharged Follow Up: Follow-up Information Follow up with Ck Feliciano MD In 1 week. Specialty: Neurology Why: Keep appt with your neurologist as scheduled next week Contact information: [address] [address] By signing my name below, I, All Lopez, attest that this documentation has been prepared underthe direction and in the presence of Dr. Vega. Signed: Laisha Hudson. Date: 03/31/2018. Time:4:37 PM. I, Dr. Vega, personally performed the services described in this documentation. All medical record entries made by the scribe were at my direction and in my presence. I have reviewed the chart and agree that the record reflects my personal performance and is accurate and complete. Electronically signed: Kortney Vega MD, MPH documented in this encounter Plan of Treatment Upcoming Encounters Date Type Department Care Team (Late st Contact Info) Description 12/05/2024 1:00 PM CDT Office Visit [facility] - Neurology [address] [place] [address], [place] [id number] Sean Raymundo, DO [address] [place] [address] [place] [address] documented as of this encounter Procedures Procedure Name Priority Date/Time Associated Diagnosis Comments LEVETIRACETAM LEVEL STAT 03/31/2018 4 :56 PM CDT VALPROIC ACID LEVEL STAT 03/31/2018 4 :56 PM CDT CBC W AUTO DIFFERENTIAL STAT 03/31/2018 4:15 PM CDT BASIC METABOLIC PANEL (CALCIUM TOTAL) STAT 03/31/2018 4:15 PM CDT MAGNESIUM BLOOD STAT 03/31/2018 4:[address] FACIAL BONES WO CONTRAST STAT 03/31/2018 3:16 PM CDT Seizure (HCC) CT HEAD WO CONTRAST STAT 03/31/2018 3 :16 PM CDT Seizure (HCC) documented in this encounter Results * VALPROIC ACID LEVEL (03/31/2018 4:56 PM CDT) [facility] Valproic Acid Total 63 50 - 100 mcg/mL 03/31/2018 5:25 PM CDT [facility] Blood BLOOD SPECIMEN / Unknown Venipuncture / Unknown 03/31/2018 4:56 PM CDT 03/31/2018 4:59 PM CDT Kortney Vega MD LAB - CHEMISTRY [facility] [place] Organization Address City/State/ZIP Co de Phone Number [address] [phone] * (ABNORMAL) LEVETIRACETAM LEVEL (03/31/2018 4:56 PM CDT) [facility] Levetiracetam 92.7(H) 10.0 - 40.0 ug/mL 04/04/2018 4:11 AM WATER TAXI DRIVER [facility] ([facility]) Blood BLOOD SPECIMEN / Unknown Venipuncture / Unknown 03/31/2018 4:56 PM CDT 03/31/2018 4:59 PM CDT Narrative [facility] ([facility]) - 04/04/2018 4:11 AM WATER TAXI DRIVER Performed at: ??01 - [facility] ??[id number] Roller Engraver: Terence Ramos MD, Phone: ??[phone] Kortney Vega MD LAB - THERAPEUTIC DR EMILY MONITORING ORDERABLES [facility] ([facility]) [address] [place] [address] * MAGNESIUM BLOOD (03/31/2018 4:15 PM CDT) Magnesium 1.7 1.6 - 2.6 mg/dL 03/31/2018 4:41 PM CDT [facility] Blood BLOOD SPECIMEN / Unknown Venipuncture / Unknown 03/31/2018 4:15 PM CDT 03/31/2018 4:15 PM CDT Kortney Vega MD LAB - CHEMISTRY [facility] Performing Organization Address City/[facility]/ZIP Co de Phone Number [place] [id number] [address] [phone] * BASIC METABOLIC PANEL (CALCIUM TOTAL) (03/31/2018 4:15 PM CDT) BUN 12 7 - 26 mg/dL 03/31/2018 4:41 PM T [facility] Creatinine 0.9 0.6 - 1.2 mg/dL 03/31/2018 4:41 PM [facility] Sodium 140 136 - 145 mmol/L 03/31/2018 4:41 PM [facility] Potassium 3.9 3.5 - 4.5 mmol/L 03/31/2018 4:41 PM [facility] Chloride 106 98 - 107 mmol/L 03/31/2018 4:41 PM [facility] CO2 25 22 - 29 mmol/L 03/31/2018 4:41 PM [facility] Glucose 99 70 - 115 mg/dL 03/31/2018 4:41 PM [facility] Calcium 9.2 8.4 - 10.2 mg/dL 03/31/2018 4:41 PM [facility] Anion Gap 13 8 - 18 03/31/2018 4:41 PM [facility] BUN/Creatinine Ratio 13 7 - 23 03/31/2018 4:41 PM [facility] Osmolality Calculated 290 270 - 300 mOsm/kg 03/31/2018 4:41 PM [facility] eGFR >60 >60 mL/min/1.7 3 m2 03/31/2018 4:41 PM [facility] Blood BLOOD SPECIMEN / Unknown Venipuncture / Unknown 03/31/2018 4:15 PM CDT 03/31/2018 4:15 PM T Kortney Vega MD LAB - CHEMISTRY [facility] [address] [place] [address] * CBC W AUTO DIFFERENTIAL (03/31/2018 4:15 PM CDT) WBC 6.0 3.5 - 10.5 10? 3 /uL 03/31/2018 4:19 PM [facility] RBC 4.68 4.30 - 5.70 10? 6 /uL 03/31/2018 4:19 PM [facility] Hemoglobin 15.4 13.5 - 17.5 g/dL 03/31/2018 4:19 PM [facility] Hematocrit 44.7 39.0 - 50.0 % 03/31/2018 4:19 PM [facility] MCV 95.5 81.0 - 97.0 fL 03/31/2018 4:19 PM [facility] MCH 32.9 28.0 - 34.0 pg 03/31/2018 4:19 PM [facility] MCHC 34.5 32.0 - 36.0 g/dL 03/31/2018 4:19 PM [facility] Platelet Count 157 150 - 400 10? 3 /uL 03/31/2018 4:19 PM [facility] RDW-SD 42.1 36.0 - 50.0 fL 03/31/2018 4:19 PM [facility] RDW-CV 12.1 11.2 - 14.8 % 03/31/2018 4:19 PM [facility] MPV 12.1 9.3 - 12.8 fL 03/31/2018 4:19 PM [facility] Neutrophils % 62.0 35.0 - 70.0 % 03/31/2018 4:19 PM [facility] Lymphocytes % 31.8 19.7 - 55.1 % 03/31/2018 4:19 PM [facility] Monocytes % 5.0 3.0 - 15.0 % 03/31/2018 4:19 PM [facility] Eosinophils % 1.0 0.0 - 6.0 % 03/31/2018 4:19 PM [facility] Basophil % 0.2 0.0 - 1.5 % 03/31/2018 4:19 PM [facility] Neutrophils Absolute 3.7 1.6 - 7.0 10? 3 /uL 03/31/2018 4:19 PM [facility] Lymphocyte Absolute 1.9 0.8 - 2.9 10? 3 /uL 03/31/2018 4:19 PM [facility] Monocytes Absolute 0.30 0.14 - 0.66 10? 3 /uL 03/31/2018 4:19 PM T [facility] Eosinophils Absolute 0.06 0.00 - 0.22 10? 3 /uL 03/31/2018 4:19 PM [facility] Basophils Absolute 0.01 0.00 - 0.06 10? 3 /uL 03/31/2018 4:19 PM [facility] Immature Granulocytes % 0.2 0.0 - 1.0 % 03/31/2018 4:19 PM [facility] Blood BLOOD SPECIMEN / Unknown Venipuncture / Unknown 03/31/2018 4:15 PM CDT 03/31/2018 4:15 PM CDT Kortney Vega MD LAB - HEMATOLOGY ORD ERABLES [facility] [address] [place] [address] * CT FACIAL BONES WO CONTRAST (03/31/2018 3:16 PM CDT) Anatomical Region Laterality Modality Head Computed Tomogra phy 03/31/2018 3:30 PM CDT Impressions 03/31/2018 3:51 PM CDT IMPRESSION: 1. No acute intracranial process. 2. No acute facial bone fracture. Dictated by Carrie Paiz M.D. (residential therapist). I, Dr. LATRICE ORTIZ have personally reviewed and interpreted this examination/study. This report was electronically signed by LATRICE ORTIZ ??on 03/31/2018 3:51 PM . Narrative [...] of anterior osteophyte likely chronic. Procedure Note Latrice Ortiz MD - 03/31/2018 EXAMINATION: 1. Computed [...] fracture. Dictated by Carrie Paiz M.D. (residential therapist). Dr. LATRICE Thomason have personally reviewed and interpreted this examination/study. This report was electronically signed by LATRICE ORTIZ on 03/31/2018 3:51PM . Kortney Vega MD CT ORDERABLES * CT HEAD WO CONTRAST (03/31/2018 3:16 PM CDT) Anatomical Region Laterality Modality Head Computed Tomogra phy 03/31/2018 3:30 PM CDT Impressions 03/31/2018 3:51 PM CDT IMPRESSION: 1. No acute intracranial process. 2. No acute facial bone fracture. Dictated by Carrie Paiz M.D. (residential therapist). Dr. LATRICE Thomason have personally reviewed and interpreted this examination/study. This report was electronically signed by LATRICE ORTIZ ??on 03/31/2018 3:51 PM . Narrative [...] of anterior osteophyte likely chronic. Procedure Note Latrice Ortiz MD - 03/31/2018 EXAMINATION: 1. Computed [...] fracture. Dictated by Carrie Paiz M.D. (residential therapist). I, Dr. LATRICE ORTIZ have personally reviewed and interpreted this examination/study. This report was electronically signed by LATRICE ORTIZ on 03/31/2018 3:51PM . Kortney Vega MD CT ORDERABLES documented in this encounter Visit Diagnoses Diagnosis Seizure (HCC) Other convulsions Nonintractable epilepsy without status epilepticus, unspecified epilepsy type (HCC) documented in this encounter Administered Medications Inactive Administered Medications - up to 3 most recent administrations Medication Order MAR Action Action Date Dose Rate Site divalproex DR (DEPAKOTE) tablet 750 mg 750 mg, Oral, NOW, 1 dose, On Tue03/31/18 at 1815, Do not crush, chew, or cut in half. $ Given 03/31/2018 6:25 PM CDT 750 mg levETIRAcetam (KEPPRA) 1,000 mg in 100 mL IVPB 1,000 mg, at 400 mL/hr, Intravenous, NOW, 1 dose, On Tue03/31/18 at 1500 $ New Bag/Syringe 03/31/2018 4:26 PM CDT 1,000 mg 400 mL/hr documented in this encounter Active and Recently Administered Medications Times are shown in CDT. Scheduled Medication Order 03/29/2018 03/30/2018 03/31/[address] (DEPAKOTE) tablet 750 mg (COMPLETED) 750 mg, Oral, NOW, 1 dose, On Tue03/31/18 at 1815, Do not crush, chew, or cut in half. 1825 ($ Given - Prov ider: Mary Santana RN) levETIRAcetam (KEPPRA) 1,000 mg in 100 mL IVPB (COMPLETED) 1,000 mg, at 400 mL/hr, Intravenous, NOW, 1 dose, On Tue03/31/18 at 1500 1626 ($ New Bag/Syri nge - Provider: Yary Medina RN)1645 (Stopped - Provider: Yary Medina RN) documented in this encounter Care Teams School Bus Driver/Teacher Assistant Relationship Specialty Start Date End Date Misael Maradiaga DO PCP - General 10/03/17 09/15/20 Elizabeth Sullivan, ALFRED Director [employer] 10/14/17 documented as of this encounter
--- OUTSIDE RECORDS SUMMARY | 2024-06-08 05:44 | XMS_ITS | Encounter Summary ---
Author Organization [facility] Health Address [address] [place] [address] Care Team Providers Care Plant Sciences Professor Name Role Phone Misael Maradiaga DO Primary Care Provider Elizabeth Sullivan RN Unavailable Encounter Details Date Type Department Care Team (Latest Contact Info) Description 01/09/2018 2:28 PM CDT - 01/09/2018 11:59 PM CDT Hospital Encounter [facility] [address] [place] [phone] Ck Feliciano MD [address] OF [place] [phone] Discharge Disposition: Home or Self Care Social [...] once daily 30 tablet 5 01/09/2018 06/10/2018 atorvastatin (LIPITOR) 40 MG tablet Take 40 mg by mouth once daily 04/15/2015 01/30/2018 clonazePAM (KLONOPIN) 0.5 MG tabletIndications:Epile psy with seizures of localized onset (HCC) Take 1 tablet by mouth every 8 hours as needed (After a seizure to prevent clustering. Please call the office if seizures occur.) 20 tablet 2 01/09/2018 04/11/2018 Cyanocobalamin (B-12) 1000 MCGIndications:Vitamin B12 deficiency Take 1 mg by mouth once daily 30 capsule 01/09/2018 04/11/2018 folic acid (FOLVITE) 1 MG [...] times daily 180 tablet 5 01/09/2018 04/11/2018 MAPAP 325 MG tablet TK 2 TS PO Q 4 H PRN P 0 12/09/2017 01/30/2018 thiamine (VITAMIN B-1) 100 MG tabletIndications:Lucia ine deficiency Take 1 tablet by mouth once daily 30 tablet 5 01/09/2018 04/11/2018 documented as of this encounter Plan of Treatment Upcoming Encounters Date Type Department Care Team (Late st Contact Info) Description 12/05/2024 1:00 PM CDT Office Visit [facility] - Neurology [address] [facility], [place] [phone] Sean Raymundo, DO [address] [facility] [address] DIV OF [place]UROLOG[place] [phone] documented as of this encounter Procedures Procedure Name Priority Date/Time Associated Diagnosis Comments LEVETIRACETAM LEVEL Routine 01/09/2018 2 :51 PM CDT Epilepsy with seizures of localized onset (HCC) CBC W AUTO DIFFERENTIAL Routine 01/09/2018 2:51 PM CDT Epilepsy with seizures of localized onset (HCC) COMPREHENSIVE METABOLIC PANEL Routine 01/09/2018 2:51 PM CDT Epilepsy with seizures of localized onset (HCC) FOLATE Routine 01/09/2018 2:51 PM CDT Folate deficiency VITAMIN B12 Routine 01/09/2018 2:51 PM CDT Vitamin B12 deficiency VALPROIC ACID LEVEL Routine 01/09/2018 2 :51 PM CDT Epilepsy with seizures of localized onset (HCC) documented in this encounter Results * FOLATE (01/09/2018 2:51 PM CDT) Pathologist [facility] Folate 14.1 7.0 - 31.4 ng/mL 01/09/2018 4:37 PM CDT [facility] Blood BLOOD SPECIMEN / Unknown Lab Venipuncture / Unknown 01/09/2018 2:51 PM CDT 01/09/2018 3:34 PM CDT Ck Feliciano MD LAB - CHEMISTRY ORDERABLES [facility] [address] [place] [id number] [place] [address] * VITAMIN B12 (01/09/2018 2:51 PM CDT) Pathologist [facility] Vitamin B12 320 213 - 816 pg/mL 01/09/2018 4:31 PM CDT [facility] Blood BLOOD SPECIMEN / Unknown Lab Venipuncture / Unknown 01/09/2018 2:51 PM CDT 01/09/2018 3:33 PM CDT Ck Feliciano MD LAB - CHEMISTRY ORDERABLES Performing Organization Address [facility] [address]/ZIP Co de Phone Number [address] [phone] * (ABNORMAL) VALPROIC ACID LEVEL (01/09/2018 2:51 PM CDT) [facility] Valproic Acid Total 41(L) 50 - 100 mcg/mL 01/09/2018 4:44 PM CDT [facility] Blood BLOOD SPECIMEN / Unknown Lab Venipuncture / Unknown 01/09/2018 2:51 PM CDT 01/09/2018 3:34 PM CDT Ck Feliciano MD LAB - CHEMISTRY ORDERABLES Performing Organization Address City/[facility] [address]/ZIP Co de Phone Number [address] [phone] * (ABNORMAL) LEVETIRACETAM LEVEL (01/09/2018 2:51 PM CDT) Pathologist [facility] Levetiracetam 54.9(H) 10.0 - 40.0 ug/mL 01/12/2018 3:17 PM CDT [facility] ([facility]) Blood BLOOD SPECIMEN / Unknown Lab Venipuncture / Unknown 01/09/2018 2:51 PM CDT 01/09/2018 3:34 PM CDT Narrative [facility] ([facility]) - 01/12/2018 3:17 PM CDT Performed at: ??01 - [facility] [address] ??[id number] [facility] Manager: Vito Hay MD, Phone: ??[phone] Ck Feliciano MD LAB - THERAPEUT IC DRUG MONITORING ORDERABLES [facility] ([facility]) [address] [place] [address], [facility] * (ABNORMAL) COMPREHENSIVE METABOLIC PANEL (01/09/2018 2:51 PM [facility]) BUN 14 7 - 26 mg/dL 01/09/2018 3:59 PM [facility] Creatinine 0.9 0.6 - 1.2 mg/dL 01/09/2018 3:59 PM [facility] Sodium 142 136 - 145 mmol/L 01/09/2018 3:59 PM [facility] Potassium 3.9 3.5 - 4.5 mmol/L 01/09/2018 3:59 PM [facility] Chloride 108(H) 98 - 107 mmol/L 01/09/2018 3:59 PM [facility] CO2 22 22 - 29 mmol/L 01/09/2018 3:59 PM [facility] Glucose 86 70 - 115 mg/dL 01/09/2018 3:59 PM [facility] Calcium 9.0 8.4 - 10.2 mg/dL 01/09/2018 3:59 PM [facility] Protein Total 6.9 6.0 - 8.3 g/dL 01/09/2018 3:59 PM [facility] Albumin 4.0 3.4 - 5.0 g/dL 01/09/2018 3:59 PM [facility] Bilirubin Total 0.5 0.2 - 1.2 mg/dL 01/09/2018 3:59 PM [facility] Alkaline Phosphatase 81 40 - 150 Units/L 01/09/2018 3:59 PM [facility] ALT 8 0 - 55 Units/L 01/09/2018 3:59 PM [facility] AST 15 5 - 34 Units/L 01/09/2018 3:59 PM [facility] Anion Gap 16 8 - 18 01/09/2018 3:59 PM [facility] BUN/Creatinine Ratio 16 7 - 23 01/09/2018 3:59 PM [facility] Osmolality Calculated 294 270 - 300 mOsm/kg 01/09/2018 3:59 PM [facility] Albumin/Globulin Ratio 1.4 1.1 - 2.3 01/09/2018 3:59 PM [facility] eGFR >60 >60 mL/min/1.7 3 m2 01/09/2018 3:59 PM [facility] Blood BLOOD SPECIMEN / Unknown Lab Venipuncture / Unknown 01/09/2018 2:51 PM CDT 01/09/2018 3:34 PM CDT Ck Feliciano MD LAB - CHEMISTRY ORDERABLES [facility] [address] [phone] * (ABNORMAL) CBC W AUTO DIFFERENTIAL (01/09/2018 2:51 PM CDT) WBC 5.3 3.5 - 10.5 10? 3 /uL 01/09/2018 3:43 PM [facility] RBC 4.65 4.30 - 5.70 10? 6 /uL 01/09/2018 3:43 PM [facility] Hemoglobin 15.0 13.5 - 17.5 g/dL 01/09/2018 3:43 PM [facility] Hematocrit 44.7 39.0 - 50.0 % 01/09/2018 3:43 PM [facility] MCV 96.1 81.0 - 97.0 fL 01/09/2018 3:43 PM [facility] MCH 32.3 28.0 - 34.0 pg 01/09/2018 3:43 PM [facility] MCHC 33.6 32.0 - 36.0 g/dL 01/09/2018 3:43 PM [facility] Platelet Count 147(L) 150 - 400 10? 3 /uL 01/09/2018 3:43 PM [facility] RDW-SD 44.1 36.0 - 50.0 fL 01/09/2018 3:43 PM [facility] RDW-CV 12.6 11.2 - 14.8 % 01/09/2018 3:43 PM [facility] MPV 12.5 9.3 - 12.8 fL 01/09/2018 3:43 PM [facility] Neutrophils % 41.3 35.0 - 70.0 % 01/09/2018 3:43 PM [facility] Lymphocytes % 52.2 19.7 - 55.1 % 01/09/2018 3:43 PM [facility] Monocytes % 3.9 3.0 - 15.0 % 01/09/2018 3:43 PM [facility] Eosinophils % 2.2 0.0 - 6.0 % 01/09/2018 3:43 PM [facility] Basophil % 0.4 0.0 - 1.5 % 01/09/2018 3:43 PM [facility] Neutrophils Absolute 2.2 1.6 - 7.0 10? 3 /uL 01/09/2018 3:43 PM [facility] Lymphocyte Absolute 2.8 0.8 - 2.9 10? 3 /uL 01/09/2018 3:43 PM [facility] Monocytes Absolute 0.21 0.14 - 0.66 10? 3 /uL 01/09/2018 3:43 PM [facility] Eosinophils Absolute 0.12 0.00 - 0.22 10? 3 /uL 01/09/2018 3:43 PM [facility] Basophils Absolute 0.02 0.00 - 0.06 10? 3 /uL 01/09/2018 3:43 PM [facility] Immature Granulocytes % 0.2 0.0 - 1.0 % 01/09/2018 3:43 PM [facility] Blood BLOOD SPECIMEN / Unknown Lab Venipuncture / Unknown 01/09/2018 2:51 PM CDT 01/09/2018 3:33 PM CDT Ck Feliciano MD LAB - HEMATOLOG Y ORDERABLES [address] [phone] documented in this encounter Visit Diagnoses Diagnosis Epilepsy with seizures of localized onset (HCC) Vitamin B12 deficiency Other B-complex deficiencies Folate deficiency Other B-complex deficiencies documented in this encounter Care Teams Plant Sciences Professor Relationship Specialty Start Date End Date Misael Maradiaga DO PCP - General 10/03/17 09/15/20 Elizabeth Sullivan, RN Mess Attendant Crew 10/14/17 documented as of this encounter
--- OUTSIDE RECORDS SUMMARY | 2024-06-08 05:44 | XMS_ITS | Encounter Summary ---
Author Organization [facility] Health Address [address] [facility] [place] [address] Care Team Providers Care Rehab Technician Name Role Phone Misael Maradiaga DO Primary Care Provider Elizabeth Sullivan RN Unavailable [phone] Encounter Details Date Type Department Care Team (Late st Contact Info) Description 08/09/2018 Orders Only [facility] [address] [place] [address] Ck Feliciano MD [address] [place] [phone] Partial 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, intractable, without status epilepticus (HCC) Social History [...] Progress Notes * Ck Feliciano MD - 08/09/2018 9:00 AM CDT Missed appointment. Call to verify dosage. Increased [facility]XC Levetiractam 750 mg 3 - 3 Depakote Sprinkle 125 mg 4 - [address] 500 mg 1 - 1 Oxcarbazepine 300 mg 1.5 - 1.5 (Increased) Clonazepam 0.5 mg PRN ?? documented in this encounter Plan of Treatment Upcoming Encounters Date Type Department Care Team (Late st Contact Info) Description 12/05/2024 1:00 PM CDT Office Visit [facility] - Neurology [address] [place] [address], [place] [address] Sean Raymundo DO [address] [place] [phone] documented as of this encounter Visit Diagnoses Diagnosis Partial 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, intractable, without status epilepticus (HCC)- Primary documented in this encounter Care Teams Rehab Technician Relationship Specialty Start Date End Date Misael Maradiaga DO PCP - General 10/03/17 09/15/20 Elizabeth Sullivan, RN Tool And Machine Maintainer 10/14/17 documented as of this encounter
--- OUTSIDE RECORDS SUMMARY | 2024-06-08 05:44 | XMS_ITS | Encounter Summary ---
Author Organization [facility] Health Address [address] [facility] [place] [address] Care Team Providers Care Manager Eligibility Name Role Phone Unavailable Primary Care Provider Unavailabl e Reason for Visit * Reason Onset Date Comments Medication Issue 09/22/2017 Encounter Details Date Type Department Care Team (Late Contact Info) Description 09/22/2017 Telephone [facility] Neurology [address] [place] [address] Evy Frost, blender conveyor operator Issue Social History Tobacco Use Types Packs/Day Years Used Date Smoking Tobacco: Never Assessed Sex and Gender Information Value Date Recorded Sex Assigned at Not on file Gender Identity Not on file Sexual Orientation Not on file documented as of this encounter Miscellaneous Notes * Telephone Encounter - Evy Frost, RN - 09/22/2017 4:08 PM CDT Received and returned call to patient - states he was seen at [facility] paperwork indicated that he was to take Gabapentin 3 times a day. Unable to see these records. Patient will continue at previously ordered dose of bid until seen by physician. documented in this encounter Plan of Treatment Upcoming Encounters Date Type Department Care Team ([facility] Contact Info) Description 12/05/2024 1:00 PM CDT Office Visit [facility] - Neurology [address] [place] [address], [place] [phone] Sean Raymundo, [address] [place] [address] documented as of this encounter Visit Diagnoses Not on filedocumented in this encounter
--- OUTSIDE RECORDS SUMMARY | 2024-06-08 05:44 | XMS_ITS | Encounter Summary ---
Author Organization [facility] Address [address] [place] [address] Care Team Providers Care Cloth Examiner Machine Name Role Phone Hiren Misael Yostjamel Primary Care Provider Elizabeth Sullivan RN Unavailable [phone] Reason for Visit * Reason Comments Seizure Encounter Details Date Type Department Care Team (Late st Contact Info) Description 08/07/2018 12:40 PM CDT - 08/07/2018 3:28 PM CDT Emergency [facility] [address] [place] [address] Kortney Vega MD [address] [place] [address] Seizure (HCC) (Primary Dx); Partial 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, intractable, without status epilepticus (HCC); Folate deficiency Discharge Disposition: Home or Self Care Social [...] Sign Reading Time Taken Comments Blood Pressure 156/94 08/07/2018 3:04 PM CDT Pulse 82 08/07/2018 3:04 PM CDT Temperature 36.4 ??C (97.5 ??F) 08/07/2018 12:44 PM C DT Respiratory Rate 18 08/07/2018 3:04 PM CDT Oxygen Saturation 100% 08/07/2018 3:04 PM CDT Inhaled Oxygen Concentration - - Weight 67.1 kg (148 lb) 08/07/2018 12:44 PM CDT Height 180.3 cm (5' 11 ) 08/07/2018 12:44 PM CDT Body Mass Index 20.64 08/07/2018 12:44 PM CDT documented in this encounter Functional [...] this encounter Discharge Instructions * Discharge Instructions* Juan Diego Warren Jr., MD - 08/07/2018 2:48 PM CDT Dear Bi Tabor, You were seen in the ER for seizure. This was likely due to difficulties getting/taking all of yourmedication I have refilled all of your seizure meds--please get these filled today and don't miss any doses. Please note the following changes to your medications: Medication List START taking these medications levETIRAcetam 750 MG tablet Commonly known as: KEPPRA Take 1 tablet by mouth 2 times daily CONTINUE taking these medications amLODIPine 5 MG tablet Commonly known as: NORVASC Take 1 tablet by mouth once daily aspirin 81 MG chew tablet Commonly known as: ASPIRIN Take 1 tablet by mouth once daily B-12 1000 MCG Take 1 mg by mouth once daily clonazePAM 0.5 MG tablet Commonly known as: KlonoPIN Take 1 tablet by mouth every 8 hours as needed (After a seizure to prevent clustering. Please call the office if seizures occur.) divalproex DR 500 MG tablet Commonly known as: DEPAKOTE Take 1 tablet by mouth 2 times daily folic acid 1 MG tablet Commonly known as: FOLVITE Take 1 tablet by mouth once daily gabapentin 300 MG capsule Commonly known as: NEURONTIN Take 1 capsule by mouth 3 times daily OXcarbazepine 300 MG tablet Commonly known as: TRILEPTAL Take 1 tablet by mouth 2 times daily thiamine 100 MG tablet Commonly known as: VITAMIN B-1 Take 1 tablet by mouth once daily Where to Get Your Medications These medications were sent to [facility] [address] [place] [id number] [address] ??? divalproex DR 500 MG tablet ??? gabapentin 300 MG capsule ??? levETIRAcetam 750 MG tablet ??? OXcarbazepine 300 MG tablet Please follow up with your neurologist Dr. Leos on 08/09/2018 at 8:30 AM. It is important you follow with him in order to manage your medications. If you have worsening seizures, you should return to the ER. Best wishes to you, Dr. Juan Diego Warren and the rest of the ER Alpha Team. documented in this encounter Medications at Time [...] mouth 2 times daily 60 tablet 1 08/07/2018 08/09/2018 folic acid (FOLVITE) 1 MG tabletIndications:Folat e deficiency Take 1 tablet by mouth once daily 30 tablet 8 04/11/2018 10/26/2018 gabapentin (NEURONTIN) 300 MG capsuleIndications:Part ial 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, intractable, without status epilepticus (HCC) Take 1 capsule by mouth 3 times daily 90 capsule 08/07/2018 08/09/2018 levETIRAcetam (KEPPRA) 750 MG tablet Take 1 tablet by mouth 2 times daily 60 tablet 08/07/2018 08/09/2018 levETIRAcetam (KEPPRA) 750 MG tabletIndications:Parti al 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, intractable, without status epilepticus (HCC) Take 3 tablets by mouth 2 times daily for 30 days 180 tablet 06/10/2018 01/14/2023 OXcarbazepine (TRILEPTAL) 300 MG tablet Take 1 tablet by mouth 2 times daily 60 tablet 08/07/2018 08/09/2018 thiamine (VITAMIN B-1) 100 MG tabletIndications:Lucia ine deficiency Take 1 tablet by mouth once daily 30 tablet 8 04/11/2018 10/26/2018 documented as of this encounter Progress Notes * Arleen Srivastava - 08/07/2018 2:16 PM CDT CRC services requested for Neurology follow up with established [facility] Care provider. Pt has been scheduled and informed of all appt information prior to discharge. August 09 at 8:30 AM Provider: [facility] [address] [facility] [address] [place] [id number] Pt also advised to arrive 30 mins early as well as accommodate for parking. Arleen Srivastava, MPH Community Technical Specialist [facility] Emergency Department [phone] documented in this encounter ED Notes * Kacey Merida RN - 08/07/2018 3:05 PM CDT DC pending medication from pharmacy * Kacey Merida RN - 08/07/2018 12:57 PM CDT Resident states to wait for lab results prior to giving ,meds * Kortney Vega MD - 08/07/2018 12:54 PM CDT ED Attending Note Patient seen with resident Dr. Warren, management discussed. I performed an independent assessment of the patient, this note represents combined charting HPI: iB Tabor is a 58 y.o. male presenting to the ED c/o seizure. Pt states he had a seizure thismorning and called EMS right after. Pt states he fell back into his bed when he had the seizure, hehas neck pain that is chronic to some degree but worse. No tongue biting or incontinence. Pt cannotdescribe the seizure and does not know how long it lasted. Pt claims to compliant with medications,but resident noted pt is out of Depakote and Gabapentin when given pt's medication bottles. He has bottles from 2 months ago that are more than custodial full and empty bottles from Jul 20, 2018 but states he puts pills from new RX into old bottles to keep a supply of medications with him. He reportspoor sleep hygiene, sleeping a lot during the day then not being able to sleep at night. No other obvious triggers for the seizure. Pt denies any other symptoms at this time. He has difficult to control seizures, followed by Dr. Feliciano of Neurology. He reports chronic neck pain, diffusely in the neck. Constant, worse with movement, partially improves with acetaminophen. This pain has been long standing but patient denies having had any prescription medication, physical therapy, advanced imaging or injections for the pain. He does not recall being told a formal diagnosis of herniated disks, spinal stenosis, arthritis or prior fracture. PMH: CVA, HTN, seizure PSH: denies SH: smoker less than 1/2 PPD, no alcohol for several years, denies drug use Past Medical History: Diagnosis Date ??? CVA [...] Negative for difficulty urinating, hematuria, dysuria Musculoskeletal: +neck pain Negative for back pain, myalgia Skin: Negative for rash, itching Neurological: +seizure Negative for OROPEZA, dizziness, weakness, numbness, tingling Psychiatric: Negative for SI, hallucinations, anxiety Vitals: 08/07/18 1244 BP: 158/86 Pulse: 85 Resp: 16 Temp: 97.5 ??F (36.4 ??C) SpO2: 98% Weight: 67.1 kg (148 lb) Height: 1.803 m (5' 11 ) Exam: Constitutional: well developed, well nourished, no acute distress HENT: no scalp hematomas or facial bony tenderness, moist oral mucosa, no tongue biting Eyes: PERRL, EOMI, conjunctiva normal Neck: no posterior midline tenderness, moving neck with mild discomfort Cardiovascular: regular rate and rhythm, no gallops, murmurs, or rubs Respiratory: no respiratory distress, clear to auscultation bilaterally Abdomen: positive bowel sounds, soft, non-tender, non-distended Genitourinary: deferred Musculoskeletal: no gross deformities or bony tenderness to palpation, FROM throughout, radial and DP pulses intact Skin: warm, dry, no rashes Neurological: awake, alert&OX3, CNI, sensation intact to light touch in all extremities, strength 5+/5 throughout Psychiatric: mood and affect normal Medical Decision Makin. Medically complex 58 year old male with known difficult to control seizures presents after unwitnessed seizure. Pt states he feels like he had a seizure and woke up in bed. No signs of trauma. Admits to poor sleep hygiene and it appears he might have run out of several medications that may have triggered this episode. Pt denies other illnesses. Differential diagnosis considered: Breakthrough seizure vs seizure due to noncompliance vs seizure due to poor sleep hygiene or other trigger Plan: Check labs for therapeutic levels of anti-convulsants, if seizing despite therapeutic levels will discuss with Neuro Results: Labs Reviewed CBC W AUTO DIFFERENTIAL - Abnormal; Notable for the following: Result Value MCV 97.3 (*) Platelet Count 115 (*) Eosinophils % 7.3 (*) All other components within normal limits COMPREHENSIVE METABOLIC PANEL - Normal VALPROIC ACID LEVEL - Normal ALCOHOL ETHYL BLOOD LEVETIRACETAM LEVEL DRUG SCREEN TOX URINE PANEL OXCARBAZEPINE BLOOD CT HEAD NON CONTRAST Final Result EXAMINATION: Computed tomography (CT) of the head without contrast HISTORY: s/p seizure, patient now complaining of acute neck pain TECHNIQUE: CT of the head was performed without contrast according to standard protocol. COMPARISON: CT head dated 06/10/2018. FINDINGS: There is no CT evidence of acute infarct or acute intracranial hemorrhage. Old infarcts are seen in the right medial occipital lobe and bilateral thalami. There are moderate chronic microvascular ischemic changes. There is moderate cerebral and cerebellar volume loss, greater than expected for patient's age. Scattered calcifications of the carotid arteries are noted. The basilar cisterns are patent. No mass effect or midline shift is seen. There is a chronic left lamina papyracea fracture. In addition, there is a large mucus retention cyst and moderate mucosal thickening in the right maxillary sinus, mild mucosal thickening in the left maxillary sinus, and mucosal thickening of the bilateral ethmoidal air cells. The mastoids appear normal. No acute fracture is identified. There is a unchanged hypodense lesion in the left occipital scalp, likely a sebaceous cyst. IMPRESSION: 1. No acute intracranial process. 2. Unchanged chronic infarcts in the right occipital lobe and left thalamus. I, Dr. LATRICE ORTIZ have personally reviewed and interpreted this examination/study. This report was electronically signed by LATRICE ORTIZ on 08/07/2018 2:[address] CERVICAL SPINE NON CONTRAST Final Result EXAMINATION: Computed tomography (CT) of the cervical spine without contrast HISTORY: s/p seizure, patient now complaining of acute neck pain TECHNIQUE: CT of the cervical spine was performed without contrast according to standard protocol. COMPARISON: CT cervical spine dated 06/10/2018. FINDINGS: No acute fracture is identified. There is no without prevertebral soft tissue swelling. There is gentle cervical kyphosis centered at C5, which is unchanged. There is 3 mm retrolisthesis of C5 and C6 on subjacent vertebrae. There are sclerotic changes of C5-6 vertebrae with subchondral lucencies and large bridging anterior osteophytes with near complete loss of disc space height. The findings are likely degenerative and stable since 06/10/2018. Other than middle atlantoaxial joint osteoarthritis, the craniocervical junction appears normal. There is unchanged severe degenerative disc disease at C5-6 and C6-7. Mild to moderate canal stenosis at these levels is also redemonstrated. There is unchanged severe osteoarthritis of the left C2-3 facet joint and unchanged uncovertebral osteoarthritis at C5-6 and C6-7 bilaterally with associated bilateral foraminal stenosis. IMPRESSION: 1. No evidence of acute fracture in the cervical spine. 2. Severe degenerative changes centered at C5, C6, and C7, without interval change in appearance. I, Dr. LATRICE ORTIZ have personally reviewed and interpreted this examination/study. This report was electronically signed by LATRICE ORTIZ on 08/07/2018 2:13 PM . ED course: The patient's Oxygen Saturation Monitor was interpreted by me. The reading was 98%. The patient wason RA at the time of the reading. This is interpreted as normal. 2:[address] is negative for any acute changes. 2:40 PM: I have reviewed his diagnostic findings [...] Orders Placed This Encounter ??? CT HEAD NON CONTRAST ??? CT CERVICAL SPINE NON CONTRAST ??? ALCOHOL ETHYL BLOOD ??? COMPREHENSIVE METABOLIC PANEL ??? CBC W AUTO DIFFERENTIAL ??? LEVETIRACETAM LEVEL ??? DRUG SCREEN TOX URINE PANEL ??? OXCARBAZEPINE BLOOD ??? VALPROIC ACID LEVEL ??? AND Linked Order Group ??? 0.9% NaCl injection 3 mL ??? 0.9% NaCl injection 1-10 mL ??? amLODIPine (NORVASC) tablet 5 mg ??? aspirin (ASPIRIN) chew tablet 81 mg ??? cyanocobalamin (VITAMIN B-12) tablet 1,000 mcg ??? divalproex DR (DEPAKOTE) tablet 500 mg ??? folic acid (FOLVITE) tablet 1 mg ??? gabapentin (NEURONTIN) capsule 300 mg ??? OXcarbazepine (TRILEPTAL) tablet 300 mg ??? thiamine (VITAMIN B-1) tablet 100 mg ??? levETIRAcetam (KEPPRA) tablet 750 mg ??? DISCONTD: gabapentin (NEURONTIN) capsule 300 mg ??? OXcarbazepine (TRILEPTAL) 300 MG tablet ??? gabapentin (NEURONTIN) 300 MG capsule ??? divalproex DR (DEPAKOTE) 500 MG tablet ??? levETIRAcetam (KEPPRA) 750 MG tablet Medications 0.9% NaCl injection 3 mL (not administered) And 0.9% NaCl injection 1-10 mL (not administered) amLODIPine (NORVASC) tablet 5 mg (5 mg Oral $ Given 08/07/181457) aspirin (ASPIRIN) chew tablet 81 mg (81 mg Oral $ Given 08/07/18 145) cyanocobalamin (VITAMIN B-12) tablet 1,000 mcg (not administered) divalproex DR (DEPAKOTE) tablet 500 mg (500 mg Oral $ Given 08/07/18 145) folic acid (FOLVITE) tablet 1 mg (1 mg Oral $ Given 08/07/18 145) gabapentin (NEURONTIN) capsule 300 mg (300 mg Oral $ Given 08/07/181458) OXcarbazepine (TRILEPTAL) tablet 300 mg (not administered) thiamine (VITAMIN B-1) tablet 100 mg (100 mg Oral $ Given 08/07/18 1458) levETIRAcetam (KEPPRA) tablet 750 mg (750 mg Oral $ Given 08/07/18 4604) Clinical Impression: 1. Seizure 2. Partial 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, intractable, without status epilepticus 3. Folate deficiency Scripts: Disposition: Discharge Follow-up: Follow-up Information Follow up with Ck Feliciano MD . Specialty: Neurology Why: Your neuro follow up appointment is scheduled for THIS Tuesday08/09/18 at 8:30 AM. BE SURE TO ARRIVE 30 MINS EARLY! Contact information: [address] [facility] [address] By signing my name below, I, Abimbola Warren, attest that this documentation has been prepared under the direction and in the presence of Dr. Vega. Signed: Laisha Stein I, Dr. Vega, personally performed the services described in this documentation. All medical record entries made by the scribe were at my direction and in my presence. I have reviewed the chart and agree that the record reflects my personal performance and is accurate and complete. Electronically signed: Kortney Vega MD, MPH * Kacey Merida, RN - 08/07/2018 12:41 PM CDT Here via EMS Pt reports having a seizure and then calling 911 when waking up. Denies any injury. Reports headache that has resolved. Denies bowel/bladder incontinence. documented in this encounter Plan of Treatment Upcoming Encounters Date Type Department Care Team (Late st Contact Info) Description 12/05/2024 1:00 PM CDT Office Visit [facility] - Neurology [address] [place] [address], [place] [id number] Sean Raymundo, [address] [place] [address] [place] [id number] documented as of this encounter Procedures Procedure Name Priority Date/Time Associated Diagnosis Comments CT CERVICAL SPINE WO CONTRAST STAT 08/07/2018 1:41 PM CDT Seizure (HCC) CT HEAD WO CONTRAST STAT 08/07/2018 1 :41 PM CDT Seizure (HCC) OXCARBAZEPINE BLOOD STAT 08/07/2018 1 2:57 PM CDT CBC W AUTO DIFFERENTIAL STAT 08/07/2018 12:57 PM CDT COMPREHENSIVE METABOLIC PANEL STAT 08/07/2018 12:57 PM CDT ALCOHOL ETHYL BLOOD STAT 08/07/2018 1 2:57 PM CDT VALPROIC ACID LEVEL STAT 08/07/2018 1 2:57 PM CDT LEVETIRACETAM LEVEL STAT 08/07/2018 1 2:56 PM CDT documented in this encounter Results * CT CERVICAL SPINE NON CONTRAST (08/07/2018 1:41 PM CDT) Anatomical Region Laterality Modality Spine Computed Tomogra phy 08/07/2018 1:43 PM CDT Impressions 08/07/2018 2:13 PM CDT IMPRESSION: 1. No evidence of acute fracture in the cervical spine. 2. Severe degenerative changes centered at C5, C6, and C7, without interval change in appearance. I, Dr. LATRICE ORTIZ have personally reviewed and interpreted this examination/study. This report was electronically signed by LATRICE ORTIZ ??on 08/07/2018 2:13 PM . Narrative 08/07/2018 2:13 PM CDT EXAMINATION: Computed tomography (CT) of the cervical spine without contrast HISTORY: s/p seizure, patient now complaining of acute neck pain TECHNIQUE: CT of the cervical spine was performed without contrast according to standard protocol. COMPARISON: CT cervical spine dated 06/10/2018. FINDINGS: No acute fracture is identified. There is no without prevertebral soft tissue swelling. There is gentle cervical kyphosis centered at C5, which is unchanged. There is 3 mm retrolisthesis of C5 and C6 on subjacent vertebrae. There are sclerotic changes of C5-6 vertebrae with subchondral lucencies and large bridging anterior osteophytes with near complete loss of disc space height. The findings are likely degenerative and stable since 06/10/2018. Other than middle atlantoaxial joint osteoarthritis, the craniocervical junction appears normal. There is unchanged severe degenerative disc disease at C5-6 and C6-7. Mild to moderate canal stenosis at these levels is also redemonstrated. There is unchanged severe osteoarthritis of the left C2-3 facet joint and unchanged uncovertebral osteoarthritis at C5-6 and C6-7 bilaterally with associated bilateral foraminal stenosis. Procedure Note Latrice Ortiz MD - 08/07/2018 EXAMINATION: Computed tomography (CT) of the cervical spine without contrast HISTORY: s/p seizure, patient now complaining of acute neck pain TECHNIQUE: CT of the cervical spine was performed without contrast according to standard protocol. COMPARISON: CT cervical spine dated 06/10/2018. FINDINGS: No acute fracture is identified. There is no without prevertebral soft tissue swelling. There is gentle cervical kyphosis centered at C5, which is unchanged. There is 3 mm retrolisthesis of C5 and C6 on subjacent vertebrae. There are sclerotic changes of C5-6 vertebrae with subchondral lucencies and large bridging anterior osteophytes with near complete loss of discspace height. The findings are likely degenerative and stable since 06/10/2018. Other than middle atlantoaxial joint osteoarthritis, the craniocervical junction appears normal. There is unchanged severe degenerative disc disease at C5-6 and C6-7. Mild to moderate canal stenosis at theselevels is also redemonstrated. There is unchanged severe osteoarthritis of the left C2-3 facet joint and unchanged uncovertebral osteoarthritis at C5-6 and C6-7 bilaterally with associated bilateral foraminal stenosis. IMPRESSION: 1. No evidence of acute fracture in the cervical spine. 2. Severe degenerative changes centered at C5, C6, and C7, without interval change in appearance. I, Dr. LATRICE ORTIZ have personally reviewed and interpreted this examination/study. This report was electronically signed by LATRICE ORTIZ on 08/07/2018 2:13PM . Kortney Vega MD CT ORDERABLES * CT HEAD NON CONTRAST (08/07/2018 1:41 PM CDT) Anatomical Region Laterality Modality Head Computed Tomogra phy 08/07/2018 2:00 PM CDT Impressions 08/07/2018 2:56 PM CDT IMPRESSION: 1. No acute intracranial process. 2. Unchanged chronic infarcts in the right occipital lobe and left thalamus. I, Dr. LATRICE ORTIZ have personally reviewed and interpreted this examination/study. This report was electronically signed by LATRICE ORTIZ ??on 08/07/2018 2:56 PM . Narrative 08/07/2018 2:56 PM CDT EXAMINATION: Computed tomography (CT) of the head without contrast HISTORY: s/p seizure, patient now complaining of acute neck pain TECHNIQUE: CT of the head was performed without contrast according to standard protocol. COMPARISON: CT head dated 06/10/2018. FINDINGS: There is no CT evidence of acute infarct or acute intracranial hemorrhage. Old infarcts are seen in the right medial occipital lobe and bilateral thalami. There are moderate chronic microvascular ischemic changes. There is moderate cerebral and cerebellar volume loss, greater than expected for patient's age. Scattered calcifications of the carotid arteries are noted. The basilar cisterns are patent. No mass effect or midline shift is seen. There is a chronic left lamina papyracea fracture. In addition, there is a large mucus retention cyst and moderate mucosal thickening in the right maxillary sinus, mild mucosal thickening in the left maxillary sinus, and mucosal thickening of the bilateral ethmoidal air cells. The mastoids appear normal. No acute fracture is identified. There is a unchanged hypodense lesion in the left occipital scalp, likely a sebaceous cyst. Procedure Note Latrice Ortiz MD - 08/07/2018 EXAMINATION: Computed tomography (CT) of the head without contrast HISTORY: s/p seizure, patient now complaining of acute neck pain TECHNIQUE: CT of the head was performed without contrast according to standard protocol. COMPARISON: CT head dated 06/10/2018. FINDINGS: There is no CT evidence of acute infarct or acute intracranialhemorrhage. Old infarcts are seen in the right medial occipital lobe and bilateral thalami. There are moderate chronic microvascular ischemic changes.There is moderate cerebral and cerebellar volume loss, greater than expectedfor patient's age. Scattered calcifications of the carotid arteries arenoted. The basilar cisterns are patent. No mass effect or midline shift isseen. There is a chronic left lamina papyracea fracture. In addition, there jacquelyn large mucus retention cyst and moderate mucosal thickening in the right maxillary sinus, mild mucosal thickening in the left maxillary sinus,and mucosal thickening of the bilateral ethmoidal air cells. The mastoids appear normal. No acute fracture is identified. There is a unchanged hypodense lesion in the left occipital scalp, likely a sebaceous cyst. IMPRESSION: 1. No acute intracranial process. 2. Unchanged chronic infarcts in the right occipital lobe and left thalamus. I, Dr. LATRICE ORTIZ have personally reviewed and interpreted this examination/study. This report was electronically signed by LATRICE ORTIZ on 08/07/2018 2:56PM . Kortney Vega MD CT ORDERABLES * VALPROIC ACID LEVEL (08/07/2018 12:57 PM CDT) Valproic Acid Total 83 50 - 100 mcg/mL 08/07/2018 1:23 PM CDT [facility] Blood BLOOD SPECIMEN / Unknown Venipuncture / Unknown 08/07/2018 12:57 PM CDT 08/07/2018 12:58 PM CDT Kortney Vega MD LAB - CHEMISTRY [facility] Organization Address City/State/ZIP Co de Phone Number [facility] [address] [place] [address] * (ABNORMAL) OXCARBAZEPINE BLOOD (08/07/2018 12:57 PM CDT) Oxcarbazepine Metabolite 8(L) 10 - 35 ug/mL 08/09/2018 4:19 PM CDT [facility] ([facility]) Comment: This test was developed and its performance characteristics determined by [facility]. It has not been cleared or approved by the Food and Drug Administration. ?Detection Limit = 1 Blood BLOOD SPECIMEN / Unknown Venipuncture / Unknown 08/07/2018 12:57 PM CDT 08/07/2018 12:58 PM CDT Narrative [facility] ([facility]) - 08/09/2018 4:19 PM CDT Performed at: ??01 - [facility] [address] ??[id number] Promotions Intern: Terence Ramos MD, Phone: ??[phone] Kortney Vega MD LAB - CHEMISTRY [facility] Organization Address City/State/ZIP Co de Phone Number [facility] ([facility]) [address] [place] [phone] * (ABNORMAL) CBC W AUTO DIFFERENTIAL (08/07/2018 12:57 PM CDT) WBC 5.7 3.5 - 10.5 10? 3 /uL 08/07/2018 1:04 PM CDT [facility] RBC 4.45 4.30 - 5.70 10? 6 /uL 08/07/2018 1:04 PM [facility] Hemoglobin 14.7 13.5 - 17.5 g/dL 08/07/2018 1:04 PM [facility] Hematocrit 43.3 39.0 - 50.0 % 08/07/2018 1:04 PM [facility] MCV 97.3(H) 81.0 - 97.0 fL 08/07/2018 1:04 PM [facility] MCH 33.0 28.0 - 34.0 pg 08/07/2018 1:04 PM [facility] MCHC 33.9 32.0 - 36.0 g/dL 08/07/2018 1:04 PM [facility] Platelet Count 115(L) 150 - 400 10? 3 /uL 08/07/2018 1:04 PM [facility] RDW-SD 43.3 36.0 - 50.0 fL 08/07/2018 1:04 PM [facility] RDW-CV 12.0 11.2 - 14.8 % 08/07/2018 1:04 PM [facility] MPV 12.0 9.3 - 12.8 fL 08/07/2018 1:04 PM [facility] nRBC Absolute 0.00 0 10? 3 /uL 08/07/2018 1:04 PM [facility] nRBC Auto 0.0 0 /100 WBC 08/07/2018 1:04 PM [facility] Neutrophils % 38.7 35.0 - 70.0 % 08/07/2018 1:04 PM [facility] Lymphocytes % 44.1 19.7 - 55.1 % 08/07/2018 1:04 PM [facility] Monocytes % 8.8 3.0 - 15.0 % 08/07/2018 1:04 PM [facility] Eosinophils % 7.3(H) 0.0 - 6.0 % 08/07/2018 1:04 PM [facility] Basophil % 0.7 0.0 - 1.5 % 08/07/2018 1:04 PM [facility] Neutrophils Absolute 2.2 1.6 - 7.0 10? 3 /uL 08/07/2018 1:04 PM [facility] Lymphocyte Absolute 2.5 0.8 - 2.9 10? 3 /uL 08/07/2018 1:04 PM [facility] Monocytes Absolute 0.50 0.14 - 0.66 10? 3 /uL 08/07/2018 1:04 PM [facility] Eosinophils Absolute 0.41 0.00 - 0.45 10? 3 /uL 08/07/2018 1:04 PM [facility] Basophils Absolute 0.04 0.00 - 0.06 10? 3 /uL 08/07/2018 1:04 PM [facility] Immature Granulocytes % 0.4 0.0 - 1.0 % 08/07/2018 1:04 PM [facility] Blood BLOOD SPECIMEN / Unknown Venipuncture / Unknown 08/07/2018 12:57 PM CDT 08/07/2018 12:58 PM CDT Kortney Vega MD LAB - HEMATOLOGY ORD ERABLES [facility] [address] [phone] * COMPREHENSIVE METABOLIC PANEL (08/07/2018 12:57 PM CDT) BUN 12 7 - 26 mg/dL 08/07/2018 1:17 PM [facility] Creatinine 1.0 0.6 - 1.2 mg/dL 08/07/2018 1:17 PM [facility] Sodium 139 136 - 145 mmol/L 08/07/2018 1:17 PM [facility] Potassium 4.4 3.5 - 4.5 mmol/L 08/07/2018 1:17 PM [facility] Chloride 103 98 - 107 mmol/L 08/07/2018 1:17 PM [facility] CO2 27 22 - 29 mmol/L 08/07/2018 1:17 PM [facility] Glucose 89 70 - 115 mg/dL 08/07/2018 1:17 PM [facility] Calcium 9.6 8.4 - 10.2 mg/dL 08/07/2018 1:17 PM [facility] Protein Total 6.7 6.0 - 8.3 g/dL 08/07/2018 1:17 PM [facility] Albumin 3.5 3.4 - 5.0 g/dL 08/07/2018 1:17 PM [facility] Bilirubin Total 0.3 0.2 - 1.2 mg/dL 08/07/2018 1:17 PM [facility] Alkaline Phosphatase 58 40 - 150 Units/L 08/07/2018 1:17 PM [facility] ALT 5 0 - 55 Units/L 08/07/2018 1:17 PM [facility] AST 15 5 - 34 Units/L 08/07/2018 1:17 PM [facility] Anion Gap 13 8 - 18 08/07/2018 1:17 PM [facility] BUN/Creatinine Ratio 12 7 - 23 08/07/2018 1:17 PM [facility] Osmolality Calculated 287 270 - 300 mOsm/kg 08/07/2018 1:17 PM [facility] Albumin/Globulin Ratio 1.1 1.1 - 2.3 08/07/2018 1:17 PM [facility] eGFR >60 >60 mL/min/1.7 3 m2 08/07/2018 1:17 PM [facility] Blood BLOOD SPECIMEN / Unknown Venipuncture / Unknown 08/07/2018 12:57 PM CDT 08/07/2018 12:58 PM CDT Kortney Vega MD LAB - CHEMISTRY [facility] Performing Organization Address [facility] Co de Phone Number [address] [phone] * ALCOHOL ETHYL BLOOD (08/07/2018 12:57 PM CDT) Pathologist [facility] Interpretation Ethanol None Detected None Detected mg/dL 08/07/2018 1:17 PM CDT [facility] Comment: Ethanol levels less than 10 mg/dL are resulted as None detected . Blood BLOOD SPECIMEN / Unknown Venipuncture / Unknown 08/07/2018 12:57 PM CDT 08/07/2018 12:58 PM CDT Kortney Vega MD LAB - CHEMISTRY [facility] Performing Organization Address [facility] Phone Number [address] [phone] * (ABNORMAL) LEVETIRACETAM LEVEL (08/07/2018 12:56 PM CDT) Pathologist [facility] Levetiracetam 82.0(H) 10.0 - 40.0 ug/mL 08/09/2018 3:15 PM CDT [facility] ([facility]) Comment: This test was developed and its performance characteristics determined by [facility]. It has not been cleared or approved by the Food and Drug Administration. Blood BLOOD SPECIMEN / Unknown Venipuncture / Unknown 08/07/2018 12:56 PM CDT 08/07/2018 12:58 PM CDT Narrative [facility] ([facility]) - 08/09/2018 3:15 PM CDT Performed at: ??01 - [facility] ??[id number] Promotions Intern: Terence Ramos MD, Phone: ??[phone] Kortney Vega MD LAB - THERAPEUTIC DR DIAZ MONITORING ORDERABLES Performing Organization Address [facility]/ZIP Co de Phone Number [facility] ([facility]) [address] [place] [address], RUST documented in this encounter Visit Diagnoses Diagnosis Seizure (HCC)- Primary Other convulsions Partial 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, intractable, 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 0.9% NaCl injection 3 mL 3 mL, Intracatheter, EVERY 8 HOURS, 1095 doses, First dose on Tue08/07/18 at 1400, Last dose on Tue08/07/19 at 0600, Flush peripheral IV catheter with 3 mL of normal saline every 8 hours. amLODIPine (NORVASC) tablet 5 mg 5 mg, Oral, DAILY, 365 doses, First dose on Tue08/07/18 at 1330, Last dose on Tue08/06/19 at 0900 $ Given 08/07/2018 2:58 PM CDT 5 mg aspirin (ASPIRIN) chew tablet 81 mg 81 mg, Oral, DAILY, 365 doses, First dose on Tue08/07/18 at 1330, Last dose on Tue08/06/19 at 0900 $ Given 08/07/2018 2:59 PM CDT 81 mg cyanocobalamin (VITAMIN B-12) tablet 1,000 mcg 1,000 mcg, Oral, DAILY, First dose on Tue08/07/18 at 1330, Until Discontinued $ Given 08/07/2018 3:17 PM CDT 1,[address] (DEPAKOTE) tablet 500 mg 500 mg, Oral, 2 TIMES DAILY, 730 doses, First dose on Tue08/07/18 at 1330, Last dose on Tue08/06/19 at 2100, Do not crush, chew, or cut in half. $ Given 08/07/2018 2:59 PM CDT 500 mg folic acid (FOLVITE) tablet 1 mg 1 mg, Oral, DAILY, 365 doses, First dose on Tue08/07/18 at 1330, Last dose on Tue08/06/19 at 0900 $ Given 08/07/2018 2:58 PM CDT 1 mg gabapentin (NEURONTIN) capsule 300 mg 300 mg, Oral, 3 TIMES DAILY, 1095 doses, First dose on Tue08/07/18 at 1400, Last dose on Tue08/07/19 at 0900 $ Given 08/07/2018 2:59 PM CDT 300 mg levETIRAcetam (KEPPRA) tablet 750 mg 750 mg, Oral, 2 TIMES DAILY, First dose on Tue08/07/18 at 1330, Until Discontinued, Do not crush or chew because of TASTE only. $ Given 08/07/2018 2:58 PM CDT 750 mg OXcarbazepine (TRILEPTAL) tablet 300 mg 300 mg, Oral, 2 TIMES DAILY, 730 doses, First dose on Tue08/07/18 at 1330, Last dose on Tue08/06/19 at 2100, Wear gloves when handling. Avoid direct contact with skin and mucous membranes. $ Given 08/07/2018 3:17 PM CDT 300 mg thiamine (VITAMIN B-1) tablet 100 mg 100 mg, Oral, DAILY, 365 doses, First dose on Tue08/07/18 at 1330, Last dose on Tue08/06/19 at 0900 $ Given 08/07/2018 2:58 PM CDT 100 mg documented in this encounter Active and Recently Administered Medications Due to Daylight Saving Time, this section may contain times in both SERVICE WRITER and CDT. Scheduled Medication Order 08/05/2018 08/06/2018 08/07/2018 0.9% NaCl injection 3 mL(Linked Group 1) 3 mL, Intracatheter, EVERY 8 HOURS, 1095 doses, First dose on Tue08/07/18 at 1400, Last dose on Tue08/07/19 at 0600, Flush peripheral IV catheter with 3 mL of normal saline every 8 hours. 1400 (Due) amLODIPine (NORVASC) tablet 5 mg 5 mg, Oral, DAILY, 365 doses, First dose on Tue08/07/18 at 1330, Last dose on Tue08/06/19 at 0900 1458 ($ Given - Prov ider: Kacey Merida RN) aspirin (ASPIRIN) chew tablet 81 mg 81 mg, Oral, DAILY, 365 doses, First dose on Tue08/07/18 at 1330, Last dose on Tue08/06/19 at 0900 1459 ($ Given - Prov ider: Kacey Merida RN) cyanocobalamin (VITAMIN B-12) tablet 1,000 mcg 1,000 mcg, Oral, DAILY, First dose on Tue08/07/18 at 1330, Until Discontinued 1517 ($ Given - Prov ider: Kacey Merida, RN) divalproex DR (DEPAKOTE) tablet 500 mg 500 mg, Oral, 2 TIMES DAILY, 730 doses, First dose on Tue08/07/18 at 1330, Last dose on Tue08/06/19 at 2100, Do not crush, chew, or cut in half. 1459 ($ Given - Prov ider: Kacey Merida, RN) folic acid (FOLVITE) tablet 1 mg 1 mg, Oral, DAILY, 365 doses, First dose on Tue08/07/18 at 1330, Last dose on Tue08/06/19 at 0900 1458 ($ Given - Prov ider: Kacey Merida, RN) gabapentin (NEURONTIN) capsule 300 mg 300 mg, Oral, 3 TIMES DAILY, 1095 doses, First dose on Tue08/07/18 at 1400, Last dose on Tue08/07/19 at 0900 1459 ($ Given - Prov ider: Kacey Merida, RN) levETIRAcetam (KEPPRA) tablet 750 mg 750 mg, Oral, 2 TIMES DAILY, First dose on Tue08/07/18 at 1330, Until Discontinued, Do not crush or chew because of TASTE only. 1458 ($ Given - Prov ider: Kacey Merida, RN) OXcarbazepine (TRILEPTAL) tablet 300 mg 300 mg, Oral, 2 TIMES DAILY, 730 doses, First dose on Tue08/07/18 at 1330, Last dose on Tue08/06/19 at 2100, Wear gloves when handling. Avoid direct contact with skin and mucous membranes. 1517 ($ Given - Prov ider: Kacey Merida, RN) thiamine (VITAMIN B-1) tablet 100 mg 100 mg, Oral, DAILY, 365 doses, First dose on Tue08/07/18 at 1330, Last dose on Tue08/06/19 at 0900 1458 ($ Given - Prov ider: Kacey Merida RN) PRN Medication Order 08/05/2018 08/06/2018 08/07/2018 0.9% NaCl injection 1-10 mL(Linked Group 1) 1-10 mL, Intracatheter, PRN, Other, peripheral line flush, Starting on Tue08/07/18 at 1238, Until Tue08/07/18 at 1628, Flush peripheral IV catheter with 1-10 mL of normal saline before and after medications and prn to clear blood from the line or to verify patency. Linked Groups Order Group 1: SALINE LOCK, INSERT AND MAINTAIN (CANCELED) Routine, CONTINUOUS, Starting on Tue08/07/18 at 1245, Until Specified, New collection And 0.9% NaCl injection 3 mLJump to med 3 mL, Intracatheter, EVERY 8 HOURS, 1095 doses, First dose on Tue08/07/18 at 1400, Last dose on Tue08/07/19 at 0600, Flush peripheral IV catheter with 3 mL of normal saline every 8 hours. And 0.9% NaCl injection 1-10 mLJump to med 1-10 mL, Intracatheter, PRN, Other, peripheral line flush, Starting on Tue08/07/18 at 1238, Until Tue08/07/18 at 1628, Flush peripheral IV catheter with 1-10 mL of normal saline before and after medications and prn to clear blood from the line or to verify patency. documented in this encounter Care Teams Cloth Examiner Machine Relationship Specialty Start Date End Date Misael Maradiaga DO PCP - General 10/03/17 09/15/20 Elizabeth Sullivan, ALFRED Floor Covering Installer 10/14/17 documented as of this encounter
--- OUTSIDE RECORDS SUMMARY | 2024-06-08 05:44 | XMS_ITS | Encounter Summary ---
Author Organization [facility] Health Address [address] [facility] [place] [address] Care Team Providers Care Lime Kiln Worker Helper Name Role Phone Misael Maradiaga DO Primary Care Provider Elizabeth Sullivan RN Unavailable [phone] Reason for Visit * Reason Comments Seizure Encounter Details Date Type Department Care Team (Late st Contact Info) Description 03/03/2018 4:23 PM CDT - 03/03/2018 10:00 PM T Emergency [facility] EMERGENCY DEPARTMENT [address] [place] [address] Isiah Leslie MD [address] [place] [address] [place] [address] Leonardo Hanson MD [address] [place] [id number] Seizure (HCC) (Primary Dx) Discharge Disposition: Home [...] Sign Reading Time Taken Comments Blood Pressure 124/75 03/03/2018 9:30 PM CDT Pulse 65 03/03/2018 9:31 PM CDT Temperature 36.6 ??C (97.8 ??F) 03/03/2018 5:10 PM CD T Respiratory Rate 15 03/03/2018 9:31 PM CDT Oxygen Saturation 97% 03/03/2018 9:31 PM CDT Inhaled Oxygen Concentration - - Weight 74.8 kg (165 lb) 03/03/2018 5:10 PM CDT Height 180.3 cm (5' 11 ) 03/03/2018 5:10 PM CDT Body Mass Index 23.01 03/03/2018 5:10 PM CDT documented in this encounter Functional [...] this encounter Discharge Instructions * Discharge Instructions* Nas Landrum, - 03/03/2018 9:44 PM CDT Images from the original note were not included. Continue taking your medications, call the neurology clinic to set up a follow up appointment if you haven't heard from them by Tuesday. Recurrent Seizures in Adults WHAT YOU NEED [...] ask them during your visits. ?? Copyright [employer] 2018 Information is for End User's use only and may not be sold, redistributed or otherwise used for commercial purposes. All illustrations and images included in CareNotes?? are the copyrighted property of [employer] or [employer] The above information is an medicaid collection specialist only. It is not intended as medical [...] as of this encounter Progress Notes * Maryan Hernandes - 03/03/2018 4:43 PM CDT While making rounds in the ED welder setter electron beam machine met patient/patient's and offered support. Patient told welder setter electron beam machine about what brought him into the ED today. Sat Math Tutor prayed with patient who expressed appreciation for the visit and prayer. Pastoral care remains available as needed/requested (pager #[phone]). 1/ 1 Maryan Meehanbes 03/03/2018 4:44 PM 03/03/18 1640 03/03/18 1641 Visit Type Assessment Date 03/03/18 -- Sat Math Tutor Visiting Patient Greta -- Pastoral Care Visit Type Initial Visit Emergency Services Visit Encounter Type Patient -- documented in this encounter ED Notes * Maria Fernanda Lincoln RN - 03/03/2018 9:59 PM CDT Pt verbalized understanding of discharge teaching vss nad * Maria Fernanda Lincoln RN - 03/03/2018 7:55 PM CDT Assisted pt bathroom, pt ambulated well assistive device; applied seizure pads * Maria Fernanda Lincoln RN - 03/03/2018 7:25 PM CDT Pt off floor to CT * Sumi Todd - 03/03/2018 6:22 PM CDT Assisted pt to restroom. * Leonardo Hanson MD - 03/03/2018 6:10 PM CDT ASSUMED CARE NOTE Patient signed out to me by Dr. Leslie at 6:10 PM. Bi Tabor Jr. is a 58 y.o. male is being evaluated after a seizure. Known history of seizures that he takes Valproic acid for. At this time the patient's condition is Stable. Pending further workup. Plan is per resuls. Vitals: 03/03/18 2100 03/03/18 2115 03/03/180 03/03/182130 BP: 130/71 122/74 124/75 Pulse: 63 64 71 65 Resp: 14 14 15 15 Temp: SpO2: 98% 97% 98% 97% Weight: Labs Reviewed CBC W AUTO DIFFERENTIAL - Abnormal; Notable for the following: Result Value Platelet 135 (*) Eosinophils % 6.2 (*) Eosinophil Absolute 0.30 (*) All other components within normal limits COMPREHENSIVE METABOLIC PANEL - Abnormal; Notable for the following: Potassium 5.6 (*) Albumin/Globulin Ratio 1.0 (*) All other components within normal limits VALPROIC ACID LEVEL - Normal CT HEAD WO CONTRAST (Results Pending) ED Course: 8:33 PM - CT head shows NAICP 9:48 PM - Remainder of workup benign. Will d/c home 9:48 PM: I have reviewed his diagnostic findings and he has had an opportunity to ask me any questions he has about care, diagnosis and discharge plan. Patient is comfortable with the discharge plan.He will follow up as directed and will return to the ER if his condition worsens or he develops other urgent concerns. Clinical Impression: 1. Seizure Disposition: Discharge home By signing my name below, I, Phil Euceda, attest that this documentation has been prepared under the direction and in the presence of Dr. Hanson. Signed: Laisha Rodriguez. Date: 03/03/2018. Time:9:49 PM. I, Dr. Hanson, personally performed the services described in this documentation. All medical record entries made by the scribe were at my direction and in my presence. I have reviewed the chart and agree that the record reflects my personal performance is and is accurate and complete. * Isiah Leslie MD - 03/03/2018 4:23 PM CDT ED Attending Note Interval History: Bi Tabor Jr. is a 58 y.o. male with history of CVA, HTN and seizure presenting to the ED after a seizure. Pt has a history of seizures and felt that he was about to have a seizure. The seizure lasted approximately 1 minute. He did not fall and did not hit his head. Pt has a known history of seizures for the past 2 years. He is prescribed Keppra and Depakote which he states he has been compliant with. Denies any alcohol use. Has had similar symptoms in the past due to known history of seizures. Symptoms are worse with nothing, better with nothing. He has no other complaints at this time. Past Medical [...] Negative for chest pain, palpitations Gastrointestinal: Negative for abdominal pain, nausea, vomiting, diarrhea Genitourinary: Negative for difficulty urinating, hematuria, dysuria Musculoskeletal: Negative for neck pain, back pain, myalgia Skin: Negative for rash, itching Neurological: + Seizure, Negative for OROPEZA, dizziness, weakness, numbness, tingling Psychiatric: Negative for SI, hallucinations, anxiety Vitals: 03/03/18 2100 03/03/18 2115 03/03/180 03/03/182130 BP: 130/71 122/74 124/75 Pulse: 63 64 71 65 Resp: 14 14 15 15 Temp: SpO2: 98% 97% 98% 97% Weight: Exam: Constitutional: well developed, well nourished, no [...] alert&Ox4, moving all extremities, no focal motor/sensation deficits, gaitnot tested. Psychiatric: mood and affect normal Medical Decision Makin. Seizure Differential diagnosis considered: Breakthrough seizure vs medication noncompliance vs altered metabolism vs electrolyte vs other Plan: CT head, labs, seizure precautions, valproic acid level, disposition pending. Results: Labs Reviewed CBC W AUTO DIFFERENTIAL - Abnormal; Notable for the following: Result Value Platelet 135 (*) Eosinophils % 6.2 (*) Eosinophil Absolute 0.30 (*) All other components within normal limits COMPREHENSIVE METABOLIC PANEL - Abnormal; Notable for the following: Potassium 5.6 (*) Albumin/Globulin Ratio 1.0 (*) All other components within normal limits VALPROIC ACID LEVEL - Normal CT HEAD WO CONTRAST (Results Pending) ED course: The patient's Oxygen Saturation Monitor was interpreted by me. The reading was 99%. The patient wason room air at the time of the reading. This is interpreted as normal. 5:47 PM - Signed out to Dr. Hanson, pending further workup Consult No Procedure done at this time No Ultrasound done at this time No CRITICAL CARE IN THE ED No Orders and Medicine administered during this encounter: Orders Placed This Encounter ??? CT HEAD WO CONTRAST ??? CBC W AUTO DIFFERENTIAL ??? COMPREHENSIVE METABOLIC PANEL ??? VALPROIC ACID LEVEL ??? levETIRAcetam (KEPPRA) 1,500 in 100 mL IVPB ??? LORazepam (ATIVAN) tablet 1 mg Medications levETIRAcetam (KEPPRA) 1,500 in 100 mL IVPB (0 mg Intravenous Stopped 03/03/18 1720) LORazepam (ATIVAN) tablet 1 mg (1 mg Oral $ Given 03/03/186) Clinical Impression: 1. Seizure Scripts: Disposition: Pending Follow-up: Follow-up Information Follow up with [facility] 312. Call on 03/07/2018. Why: to make appointment if not previously contacted Contact information: [address] [facility] [address] By signing my name below, I, Phil Euceda, attest that this documentation has been prepared under the direction and in the presence of Dr. Leslie. Signed: Laisha Rodriguez. Date: 03/04/2018. Time:4:23 PM. I, Dr. Isiah Leslie, personally performed the services described in this documentation. All medical record entries made by the laisha were at my direction and in my presence. I have reviewed the chart and agree that the record reflects my personal performance and is accurate and complete. Electronically signed: Dr. Isiah Leslie Date: 03/04/2018 Time: 10:54 AM * Sumi Todd - 03/03/2018 4:15 PM CDT Pt states that he called EMS due to a seizure that he had approximately one hour ago. Pt states that he has had seizures for the past five years and has around two per month. Pt denies hitting his head and is AOx4 at this time. documented in this encounter Plan of Treatment Upcoming Encounters Date Type Department Care Team (Late st Contact Info) Description 12/05/2024 1:00 PM CDT Office Visit [facility] - Neurology [address] [place] [address], [place] [id number] Sean Raymundo, DO [address] [place] [address] [place] [id number] documented as of this encounter Procedures Procedure Name Priority Date/Time Associated Diagnosis Comments CT HEAD WO CONTRAST STAT 03/03/2018 7 :40 PM CDT Seizure (HCC) COMPREHENSIVE METABOLIC PANEL STAT 03/03/2018 5:45 PM CDT CBC W AUTO DIFFERENTIAL STAT 03/03/2018 4:58 PM CDT VALPROIC ACID LEVEL STAT 03/03/2018 4 :58 PM CDT documented in this encounter Results * CT HEAD WO CONTRAST (03/03/2018 7:40 PM CDT) Anatomical Region Laterality Modality Head Computed Tomogra phy 03/03/2018 7:48 PM CDT Impressions 03/04/2018 4:12 PM CDT IMPRESSION: 1.No acute intracranial hemorrhage, mass effect, or midline shift. 2.Generalized cerebral and cerebellar volume loss and significant right hippocampal volume loss. 3.Chronic right occipital encephalomalacia and nonspecific white matter changes, likely vascular related. This report was approved ??by Priyanka Walker ?? on 03/04/2018 4:12 PM . I, Dr. WOJCIECH NEIL have personally reviewed and interpreted this examination/study. This report was electronically signed by WOJCIECH NEIL ??on 03/04/2018 4:12 PM . Narrative 03/04/2018 4:12 PM CDT EXAMINATION: Computed tomography (CT) of the head without contrast HISTORY: Headache post seizure, history of seizure TECHNIQUE: CT of the head was performed without contrast according to standard protocol. FINDINGS: Comparison is made with a study from CT head dated on 10/13/2017. No acute intra- or extra-axial fluid collections are identified. There is mild cerebral volume loss with associated ex vacuo ventricular dilatation. There is mild cerebellar volume loss. There is significant volume loss of the right hippocampus. The basilar cisterns are patent. No mass effect or midline shift is seen. 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 Focal area of encephalomalacia in the right occipital lobe is unchanged. The garber-white matter differentiation otherwise appears normal. Periventricular white matter hypoattenuation is indicative of chronic small vessel ischemic disease. There is vascular calcification of the carotid siphons. Other than an old left lamina papyracea fracture and mild paranasal sinus disease with a mucous retention cyst in the lateral recess of the right maxillary sinus, scattered mucosal thickening in the ethmoid air cells and maxillary sinuses, the visualized portions of the orbits, paranasal sinuses, and mastoids appear normal. No acute fracture is identified. A left occipital scalp sebaceous cyst is again noted. Procedure Note Wojciech Neil MD - 03/04/2018 EXAMINATION: Computed tomography (CT) of the head without contrast HISTORY: Headache post seizure, history of seizure TECHNIQUE: CT of the head was performed without contrast according to standard protocol. FINDINGS: Comparison is made with a study from CT head dated on10/13/2017. No acute intra- or extra-axial fluid collections are identified. Thereis mild cerebral volume loss with associated ex vacuo ventriculardilatation. There is mild cerebellar volume loss. There is significant volume lossof the right hippocampus. The basilar cisterns are patent. No mass effector midline shift is seen. 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 Focal area of encephalomalacia in the right occipital lobe is unchanged. The garber-white matter differentiation otherwise appearsnormal. Periventricular white matter hypoattenuation is indicative of chronic small vessel ischemic disease. There is vascular calcification of the carotid siphons. Other than an old left lamina papyracea fracture andmild paranasal sinus disease with a mucous retention cyst in the lateralrecess of the right maxillary sinus, scattered mucosal thickening in theethmoid air cells and maxillary sinuses, the visualized portions of the orbits, paranasal sinuses, and mastoids appear normal. No acute fracture is identified. A left occipital scalp sebaceous cyst is again noted. IMPRESSION: 1.No acute intracranial hemorrhage, mass effect, or midline shift. 2.Generalized cerebral and cerebellar volume loss and significant right hippocampal volume loss. 3.Chronic right occipital encephalomalacia and nonspecific white matter changes, likely vascular related. This report was approved by Priyanka Walker on 03/04/2018 4:12 PM . I, Dr. WOJCIECH NEIL have personally reviewed and interpreted this examination/study. This report was electronically signed by WOJCIECH NEIL on03/04/2018 4:12 PM . Isiah Leslie MD CT ORDERABLES * (ABNORMAL) COMPREHENSIVE METABOLIC PANEL (03/03/2018 5:45 PM CDT) BUN 10 7 - 26 mg/dL 03/03/2018 6:22 PM CDT [facility] Creatinine 0.8 0.6 - 1.2 mg/dL 03/03/2018 6:22 PM CDT [facility] Sodium 138 136 - 145 mmol/L 03/03/2018 6:22 PM T [facility] Potassium 5.6(H) 3.5 - 4.5 mmol/L 03/03/2018 6:22 PM [facility] Comment: Hemolysis detected in this specimen. Hemolysis is known to cause elevations in this analyte. Caution should be exercised in the interpretation of this result. Recommend repeat testing if clinically indicated. Chloride 106 98 - 107 mmol/L 03/03/2018 6:22 PM [facility] CO2 23 22 - 29 mmol/L 03/03/2018 6:22 PM [facility] Glucose 87 70 - 115 mg/dL 03/03/2018 6:22 PM [facility] Calcium 9.2 8.4 - 10.2 mg/dL 03/03/2018 6:22 PM [facility] Protein Total 7.0 6.0 - 8.3 g/dL 03/03/2018 6:22 PM [facility] Comment:Hemolysis detected i n this specimen. Hemolysis is known to cause elevations in this analyte. Caution should be exercised in the interpretation of this result. Recommend repeat testing if clinically indicated. Albumin 3.5 3.4 - 5.0 g/dL 03/03/2018 6:22 PM [facility] Bilirubin Total 0.4 0.2 - 1.2 mg/dL 03/03/2018 6:22 PM [facility] Alkaline Phosphatase 62 40 - 150 Units/L 03/03/2018 6:22 PM [facility] ALT 10 0 - 55 Units/L 03/03/2018 6:22 PM [facility] AST 23 5 - 34 Units/L 03/03/2018 6:22 PM [facility] Comment: Hemolysis detected in this specimen. Hemolysis is known to cause elevations in this analyte. Caution should be exercised in the interpretation of this result. Recommend repeat testing if clinically indicated. Anion Gap 15 8 - 18 03/03/2018 6:22 PM [facility] BUN/Creatinine Ratio 13 7 - 23 03/03/2018 6:22 PM [facility] Osmolality Calculated 284 270 - 300 mOsm/kg 03/03/2018 6:22 PM [facility] Albumin/Globulin Ratio 1.0(L) 1.1 - 2.3 03/03/2018 6:22 PM [facility] eGFR >60 >60 mL/min/1. 73 m2 03/03/2018 6:22 PM CDT [facility] Blood BLOOD SPECIMEN / Unknown Venipuncture / Unknown 03/03/2018 5:45 PM CDT 03/03/2018 5:45 PM CDT Isiah Leslie MD LAB - CHEMISTRY ORDERABLES Performing Organization Address [facility]/ZIP Co de Phone Number [address] [phone] * VALPROIC ACID LEVEL (03/03/2018 4:58 PM CDT) [facility] Valproic Acid Total 68 50 - 100 mcg/mL 03/03/2018 5:29 PM CDT [facility] Blood BLOOD SPECIMEN / Unknown Venipuncture / Unknown 03/03/2018 4:58 PM CDT 03/03/2018 5:00 PM CDT Isiah Leslie MD LAB - CHEMISTRY ORDERABLES Performing Organization Address City/[facility]/ZIP Co de Phone Number [address] [phone] * (ABNORMAL) CBC W AUTO DIFFERENTIAL (03/03/2018 4:58 PM CDT) [facility] WBC 4.8 3.5 - 10.5 10? 3 /uL 03/03/2018 5:05 PM [facility] RBC 4.49 4.30 - 5.70 10? 6 /uL 03/03/2018 5:05 PM [facility] Hemoglobin 14.6 13.5 - 17.5 g/dL 03/03/2018 5:05 PM [facility] Hematocrit 43.1 39.0 - 50.0 % 03/03/2018 5:05 PM [facility] MCV 96.0 81.0 - 97.0 fL 03/03/2018 5:05 PM [facility] MCH 32.5 28.0 - 34.0 pg 03/03/2018 5:05 PM [facility] MCHC 33.9 32.0 - 36.0 g/dL 03/03/2018 5:05 PM [facility] Platelet Count 135(L) 150 - 400 10? 3 /uL 03/03/2018 5:05 PM [facility] RDW-SD 43.6 36.0 - 50.0 fL 03/03/2018 5:05 PM [facility] RDW-CV 12.3 11.2 - 14.8 % 03/03/2018 5:05 PM [facility] MPV 12.0 9.3 - 12.8 fL 03/03/2018 5:05 PM [facility] Neutrophils % 42.6 35.0 - 70.0 % 03/03/2018 5:05 PM [facility] Lymphocytes % 43.8 19.7 - 55.1 % 03/03/2018 5:05 PM [facility] Monocytes % 7.0 3.0 - 15.0 % 03/03/2018 5:05 PM [facility] Eosinophils % 6.2(H) 0.0 - 6.0 % 03/03/2018 5:05 PM [facility] Basophil % 0.4 0.0 - 1.5 % 03/03/2018 5:05 PM [facility] Neutrophils Absolute 2.1 1.6 - 7.0 10? 3 /uL 03/03/2018 5:05 PM [facility] Lymphocyte Absolute 2.1 0.8 - 2.9 10? 3 /uL 03/03/2018 5:05 PM [facility] Monocytes Absolute 0.34 0.14 - 0.66 10? 3 /uL 03/03/2018 5:05 PM [facility] Eosinophils Absolute 0.30(H) 0.00 - 0.22 10? 3 /uL 03/03/2018 5:05 PM [facility] Basophils Absolute 0.02 0.00 - 0.06 10? 3 /uL 03/03/2018 5:05 PM [facility] Immature Granulocytes % 0.0 0.0 - 1.0 % 03/03/2018 5:05 PM [facility] Blood BLOOD SPECIMEN / Unknown Venipuncture / Unknown 03/03/2018 4:58 PM CDT 03/03/2018 5:00 PM CDT Isiah Leslie MD LAB - [place] [address], [facility] [phone] documented in this encounter Visit Diagnoses Diagnosis Seizure (HCC)- Primary Other convulsions documented in this encounter Administered Medications Inactive Administered Medications - up to 3 most recent administrations Medication Order MAR Action Action Date Dose Rate Site levETIRAcetam (KEPPRA) 1,500 in 100 mL IVPB 1,500 mg, at 400 mL/hr, Intravenous, NOW, 1 dose, On Tue03/03/18 at 1630 $ New Bag/Syringe 03/03/2018 5:00 PM CDT 1,500 mg 400 mL/hr LORazepam (ATIVAN) tablet 1 mg 1 mg, Oral, ONCE, 1 dose, On Tue03/03/18 at 2100 $ Given 03/03/2018 8:56 PM CDT 1 mg documented in this encounter Active and Recently Administered Medications Times are shown in CDT. Scheduled Medication Order 03/01/2018 03/02/2018 03/03/2018 levETIRAcetam (KEPPRA) 1,500 in 100 mL IVPB (COMPLETED) 1,500 mg, at 400 mL/hr, Intravenous, NOW, 1 dose, On Tue03/03/18 at 1630 1700 ($ New Bag/Syri nge - Provider: Sumi Todd)1720 (Stopped - Provider: Sumi Todd) LORazepam (ATIVAN) tablet 1 mg (COMPLETED) 1 mg, Oral, ONCE, 1 dose, On Tue03/03/18 at 2100 2056 ($ Given - Prov ider: Maria Fernanda Lincoln RN) documented in this encounter Care Teams Lime Kiln Worker Helper Relationship Specialty Start Date End Date Misael Maradiaga DO PCP - General 10/03/17 09/15/20 Elizabeth Sullivan, ALFRED Sales Contract Administrator 10/14/17 documented as of this encounter
--- OUTSIDE RECORDS SUMMARY | 2024-06-08 05:44 | XMS_ITS | Encounter Summary ---
Author Organization [facility] Address [address] [place] [address] Care Team Providers Care Biometric Fingerprinting Technician Name Role Phone Misael Maradiaga DO Primary Care Provider Elizabeth Sullivan RN Unavailable [phone] Reason for Visit * Reason Comments Seizure Seizure activity yes terday and today, pt reports complaince with anti-epileptic meds * Auth/Cert Specialty Diagnoses / Procedures Referred By Anabella dan Referred To Contact Referral ID Status Reason Start Date Expiration Date Visits Re quested Visits Authorized [id number] 1 1 Encounter Details Date Type Department Care Team (Late st Contact Info) Description 10/13/2017 9:05 AM CDT - 10/15/2017 4:24 PM T Hospital Encounter [address] [address] Nadir Ferrell MD [address] [facility] DIV [place] [address] Kanika Hall MD [address] [facility] [place] [address] Crescencio Carney MD [address] [place] [address] Neurology Discharge Disposition: Home or Self Care Social History Tobacco Use Types Packs/Day Years Used Date Smoking Tobacco: Every Day Cigarettes 0.3 15 Smokeless Tobacco: Never Tobacco Cessation:Ready to Q uit: Yes; Counseling Given: Yes Alcohol Use Standard Drinks/Week Comments No 0 (1 standard drink = 0.6 oz pur e alcohol) Sex and Gender Information Value Date Recorded Sex Assigned at Not on file Gender Identity Not on file Sexual Orientation Not on file documented as of this encounter Last Filed Vital Signs Vital Sign Reading Time Taken Comments Blood Pressure 124/81 10/15/2017 11:55 AM CDT Pulse 77 10/15/2017 11:55 AM CDT Temperature 36.9 ??C (98.4 ??F) 10/15/2017 11:55 AM C DT Respiratory Rate 18 10/15/2017 11:55 AM CDT Oxygen Saturation 98% 10/15/2017 11:55 AM CDT Inhaled Oxygen Concentration - [...] this encounter Discharge Instructions * Discharge Instructions* Robina Cruz DO - 10/15/2017 2:15 PM CDT Images from the original note were not included. You have been started on a new seizure medication called Depakote. Please take four tablets twice per day to control your seizures (500 mg twice per day). Please continue taking your Keppra two tablets twice per day (1500 mg twice per day). You have a fracture of your clavicle, please do not use this arm to bear weight. Please follow up with Dr. Feliciano, you have an appointment on 01/09/2018 at 2:00 PM. Please make sure to be at least 15 minutes early to your appointment. The orthopedic doctors want you to follow up with Dr. Owens in 2 weeks. Please call the providednumber on Tuesday to schedule your appointment. Clavicle Fracture WHAT YOU NEED TO KNOW: A clavicle fracture is a crack or break in your clavicle (collarbone). DISCHARGE INSTRUCTIONS: Seek care immediately if: ?? Your shoulder, arm, hand, or fingers turn bluish or pale, or feel cold or numb. ?? Your pain gets worse, even after rest and medicine. ?? Your splint feels tight, or you have increased swelling. ?? You cannot move your fingers. Contact your healthcare provider if: ?? Your sling or wrap comes off or gets damaged. ?? You have questions about your condition or care. Medicines: You may need any of the following: ?? Acetaminophen decreases pain and fever. It is available without a doctor's order. Ask how much to take and how often to take it. Follow directions. Read the labels of all other medicines you are using to see if they also contain acetaminophen, or ask your doctor or pharmacist. Acetaminophen can cause liver damage if not taken correctly. Do not use more than 4 grams (4,000 milligrams) total of acetaminophen in one day. ?? NSAIDs , such as ibuprofen, help decrease swelling, pain, and fever. This medicine is available with or without a doctor's order. NSAIDs can cause stomach bleeding or kidney problems in certain people. If you take blood thinner medicine, always ask your healthcare provider if NSAIDs are safe foryou. Always read the medicine label and follow directions. ?? Take your medicine as directed. Contact your healthcare provider if you think your medicine is not helping or if you have side effects. Tell him or her if you are allergic to any medicine. Keep a list of the medicines, vitamins, and herbs you take. Include the amounts, and when and why you take them. Bring the list or the pill bottles to follow-up visits. Carry your medicine list with you in case of an emergency. Follow up with your healthcare provider within 1 week or as directed: You may need to return for more x-rays to see how well your clavicle is healing. Write down your questions so you remember to askthem during your visits. Sling or brace care: You will have a sling or a brace to keep your clavicle from moving while it heals. Ask your healthcare provider for more information on how to care for the sling or brace, including how to adjust it. Ice: Apply ice on your clavicle for 15 to 20 minutes every hour or as directed. Use an ice pack, orput crushed ice in a plastic bag. Cover it with a towel. Ice decreases swelling and pain. Activity: Limit activity as directed by your healthcare provider. Slowly start to do more each day as the pain decreases. Physical therapy: Your healthcare provider may recommend physical therapy after your clavicle heals. A physical therapist teaches you exercises to help improve movement and strength, and to decrease pain. ?? 2017 [employer] Information is for End User's use only and may not be sold, redistributed or otherwise used for commercial purposes. All illustrations and images included in CareNotes?? are the copyrighted property of [employer]. or [facility]. The above information is an operating room aide only. It is not intended as medical advice for individual conditions or treatments. Talk to your doctor, nurse or pharmacist before following any medical regimen to see if it is safe and effective for you. Divalproex (By mouth) Divalproex Sodium (trm-IRW-tugi-ex DOLLY-nita-um) Treats seizures. Also treats bipolar disorder and helps prevent migraine headaches. Brand Name(s): Depakote, Depakote ER, Depakote Sprinkles There may be other brand names for this medicine. When This Medicine Should Not Be Used: This medicine is not right for everyone. Do not use it if you had an allergic reaction to divalproex, valproate sodium, valproic acid, if you are , or if you have certain genetic disorders (such as urea cycle disorder or mitochondrial disorders). How to Use This Medicine: Delayed Release Capsule, Delayed Release Tablet, Coated Tablet, Long Acting Tablet ?? Take your medicine as directed. Your dose may need to be changed several times to find what works best for you. ?? You may take this medicine with food to decrease stomach upset. ?? Capsule, tablet, or extended-release tablet: Swallow the medicine whole. Do not crush, break, orchew it. ?? Sprinkle capsule: You may open the capsule and pour the medicine into a small amount of soft food such as pudding or applesauce. Stir this mixture well and swallow it without chewing. ?? This medicine should come with a Medication Guide. Ask your pharmacist for a copy if you do not have one. ?? Missed dose: Take a dose as soon as you remember. If it is almost time for your next dose, wait until then and take a regular dose. Do not take extra medicine to make up for a missed dose. If you miss 2 or more doses, call your doctor. ?? Store the medicine in a closed container at room temperature, away from heat, moisture, and direct light. Drugs and Foods to Avoid: Ask your doctor or pharmacist before using any other medicine, including xgfr-qff-yjgxuja medicines, vitamins, and herbal products. ?? Some medicines can affect how divalproex sodium works. Tell your doctor if you are using any of the following: ?? Amitriptyline, aspirin, clonazepam, diazepam, nortriptyline, propofol, rifampin, ritonavir, rufinamide, tolbutamide, or zidovudine ?? control pill ?? Blood thinner (including warfarin) ?? Carbapenem antibiotic (including ertapenem, imipenem, meropenem) ?? Other seizure medicines (including carbamazepine, ethosuximide, felbamate, lamotrigine, phenobarbital, phenytoin, primidone, topiramate) ?? Alcohol, narcotic pain relievers, or sleeping pills may cause you to feel more lightheaded, dizzy, or faint when used with this medicine. Warnings While Using This Medicine: ?? It is not safe to take this medicine during . It could harm an unborn baby. Tell your doctor right away if you become . ?? Tell your doctor if you are , or if you have kidney disease, liver disease, a blooddisease, or pancreas problems, or a history of depression or mental health problems. ?? This medicine may cause the following problems: ?? Liver problems ?? Pancreatitis ?? Hyperammonemic encephalopathy (too much ammonia in your blood) ?? Depression or thoughts of suicide ?? Thrombocytopenia (decrease in blood cells that affect clotting) ?? Hypothermia (low body temperature) ?? Drug reaction with eosinophilia and systemic symptoms (DRESS), which may damage organs such as the liver, kidney, or heart ?? This medicine may make you dizzy or drowsy. Do not drive or do anything that could be dangerous until you know how this medicine affects you. ?? Do not stop using this medicine suddenly. Your doctor will need to slowly decrease your dose before you stop it completely. ?? Tell any doctor or dentist who [...] or throat, chest tightness, trouble breathing ?? Blistering, peeling, red skin rash ?? Confusion, problems with memory, unusual drowsiness, clumsiness ?? Dark urine or pale stools, loss of appetite, stomach pain, yellow skin or eyes ?? Fever, rash, swollen glands in the neck, armpit, or groin ?? Sudden and severe stomach pain, nausea, vomiting, lightheadedness ?? Thoughts of hurting yourself, depression, unusual changes in behavior or moods ?? Unusual bleeding, bruising, or weakness If you notice these less serious side effects, talk with your doctor: ?? Diarrhea, stomach upset ?? Hair loss ?? Tiredness, sleepiness ?? Trouble sleeping, tremor ?? Vision changes, dizziness, headache If you notice other side effects that you think are caused by this medicine, tell your doctor. Call your doctor for medical advice about side effects. You may report side effects to FDA at 7-818-AFW-0818 ?? 2017 [employer] Information is for End User's use only and may not be sold, redistributed or otherwise used for commercial purposes. The above information is an operating room aide only. It is not intended as [...] 10/15/2017 01/09/2018 documented as of this encounter Progress Notes * Leatha Vinson MD - 10/15/2017 4:24 PM CDT General Neurology Progress Note Patient: Bi Tabor Jr. (:1960) Date of admission: 10/13/2017 No of days in hospital: 2 Subjective: Bi Tabor Jr. is a 57 y.o. male admitted on 10/13 due to concern for seizure activity. Course of hospital stay is summarized as followed: per Dr. Moreno' note, patient has hx of seizures since 50 y/osecondary to stroke in right occipital lobe with residual VF defects. Seizures described with aura of tingling sensation over right side with subsequent convulsions and +tongue- biting. Patient follows with Dr. Feliciano outpatient, per last note patient had been seizure free for 1 year however had breakthrough event in 05/2017, therefore dose of Keppra increased to 1500 mg BID which patient tolerated well. However, patient recently had his dose increased to 2000 mg BID after being seen at [facility] ER due to breakthrough seizure in August. On day [employer] patient became confused about his dosing and accidentally took 3500 mg in AM, felt very sick for the rest of the day with nausea, diarrhea, dizziness, and anxiety. That night patient believes he fell and injured his right shoulder; his brother found him standing next to his walker and shaking. He was seen at [facility] ER and was discharged later that evening. He took 2500 mg Keppra and went to bed feeling back to his baseline. Patient came to ER to clarify his Keppra dosing. While in ER patient was witnessed to have seizure-like activity described as bilateral upper extremities shoulder flexion and grabbing bedrails with grunting lasting 20-45 seconds, no significant post-ictal state, no bowel or bladder incontinence, no tongue-biting. He was loaded with Keppra 2 gm IV, continued to have more episodes despite Keppra. Patient was admitted to neurology for seizures, started on cEEG and home dose of Keppra 1500 mg. Patient had right shoulder and clavicle X-rayed, which showed mildly displaced fracture of the distal clavicle. On 10/14 at 5 AM patient was reported to have seizure with right frontal rhythmic activity increasing from 5-8 Hz more sharply contoured. Patient was observed to sudden wake up from sleep, look aroundconfused, then had vocalization, head turning with right arm flexion, low amplitude clonic activity, automatism with mouth, later hyper motor activity with swinging of legs, left arm, and then tonic legs flexion. Afterwards patient was noted to have slurred speech, clinica seizure lasted 2 minutes.Patient was loaded with Depakote 15 mg/kg, level found to be therapeutic after 4 hours. Patient wasstarted on Depakote 500 mg BID. No reported seizure activity after Depakote. Ortho was consulted for right clavicular fx, recommended shoulder slight and outpatient follow up in [address] Owens. No acute events overnight. No more seizure activity reported. Patient states he slept well, no seizures noted. OBJECTIVE: Vitals: 10/14/17 2021 10/15/17 0034 10/15/17 0811 10/15/17 1155 BP: 124/83 127/75 105/75 124/81 Pulse: 88 88 88 77 Resp: Temp: 97.8 ??F (36.6 ??C) 97.8 ??F (36.6 ??C) 98.3 ??F (36.8 ??C) 98.4 ??F (36.9 ??C) SpO2: 99% 100% 99% 98% General: Alert, cooperative, no distress, appears stated age. Head: Normocephalic, without obvious abnormality, atraumatic. Lungs: Clear to auscultation bilaterally. Heart: Regular rate and rhythm, S1, S2 normal, no murmur, click, rub or gallop. Abdomen: Soft, non-tender. Bowel sounds normal. No masses, No organomegaly. Cortical Function: MS: Awake, Alert, Follows Commands Oriented to Person, Place and Time Language: Fluent, Coherent, Repetition Intact VF L homonymous hemianopsia Neglect No visual neglect, No tactile neglect Cranial Nerves: Pupils 3 mm BRTL, Full EOM, No ptosis or nystagmus Facial sensation intact bilaterally to LT; No facial palsy Palate symmetric; Normal tongue protrusion Motor: Abnormal Movements: None Bulk: Normal Tone: Normal Strength: RUE Proximal 5/5 LUE Proximal 5/5 Distal 5/5 Distal 5/5 RLE Proximal 5/5 LLE Proximal 5/5 Distal 5/5 Distal 5/5 DTR: Bi Tri BR Pat Ach Toes R 2 2 2 2 2 Down L 3 3 3 3 3 Down Sensory: Intact to light touch throughout Cerebellar: Dysmetria on FNF bilaterally, ataxia with HKS bilaterally Gait: Deferred Medications: No current facility-administered medications for this encounter. Current Outpatient Prescriptions Medication Sig Dispense Refill [...] mg by mouth 2 times daily 9 Data Review CBC: Recent Labs Component Name 10/15/17 0206 10/14/17 0424 10/13/17 1341 WBC 7.7 8.9 9.3 HGB 14.2 14.5 15.1 PLT 186 193 183 BMP: Recent Labs Component Name 10/15/17 0206 10/14/17 0424 10/13/17 1526 NA 138 139 138 CL 104 104 101 CO2 27 25 25 BUN 14 11 13 CREATININE 0.8 0.8 0.8 GLU 90 94 104 Recent Labs Component Name 10/15/17 0206 10/14/17 0424 10/13/17 1526 08/28/16 0359 CALCIUM 8.8 9.2 9.9 - - PHOS 2.9 3.3 - - 3.3 - = values in this interval not displayed. LFT: Recent Labs Component Name 10/14/17 1349 10/13/17 1526 08/28/16 0359 PROT 7.0 8.4* - ALB 3.9 4.8 3.9 ALKPHOS 86 88 - AST 18 23 - ALT 9 11 - cEEG 10/15/2017: This is an abnormal EEG. The abnormalities [...] focal slowing, suggestive of underline structure/functional abnormalities. ASSESSMENT/PLAN: # Seizures - no further seizure activity noted on cEEG, will discontinue - continue Depakote 500 mg BID and Keppra 1500 mg BID - patient to follow with Dr. Feliciano outpatient 01/09/2018 at 2 PM - patient to be discharged home # Right clavicular fx - ortho consulted, recommended right shoulder sling - outpatient follow up with Dr. Owens in 2 weeks - NWB with RUE - patient has good family support, PT/OT recommend SNF however discussed with patient, family, and SW, he is safe to discharge home with help - patient endorses that he has home health who comes every day, agrees to NWB with RUE Discussed patient during rounds with Dr. Vinson, general neurology attending. Robina Cruz, PGY-3 Neurology Resident 10/15/2017 11:13 PM Attending Note: ?? Patient seen and examined with Dr. Cruz. I confirm the history, physical findings, assessment, and plan as documented. My additions and/or exceptions are noted below: ?? 57 year-old man with epilepsy on keppra 1500 mg bid is admitted after having a few seizures at ED. He lives alone and has box for his medication, however was not clear about his medication dose. He had three seizures at the ER, was admitted and cEEG showed one seizure yesterday 5 am and has been seizure free since, his exam is at baseline he is awake and oriented X3, cranial nerves are intact, has clavicular frx on the right side likely after one of his seizures, following by ortho and thy recommended sling with OP f/u. Discharge per PT/OT and follow up with neurology epilepsy clinic and Ortho clinic as OP. Seizure and fall precaution. Continue keppra 1500 mg bid and depakote 500 bid. ?? Leatha Vinson MD., PhD * Trista Lindquist, OT - 10/15/2017 12:39 PM CDT [facility] Physical Medicine and Rehabilitation Occupational Therapy Initial Evaluation Note Patient: Bi Tabor Jr. Med Record Number: [id number] Date of : 1960 Age: 57 y.o. Co-Eval with PT Recommendation: Patient will benefit from inpatient multidisciplinary therapies (If patient refusesinpatient therapy, patient will require home health therapy and supervision 2/2 decreased balance) Patient is NWB RUE and will benefit form use of a small base quad cane to allow the patient to safely participate in activities of daily living such as bathing, dressing, meal prep, etc in a reasonable time frame. Without such device, patient would be unable to complete this activity safely. Treatment Interventions: ADL retraining;Functional transfer training;Endurance training;Patient/Family training;Cognitive training;UE strengthening/ROM Plan: OT Frequency: 5 Times/Week Physician Orders: Evaluation and Treat Precautions: Weight Bearing Status: Upper Extremity Weight Bearing: NWB (RUE; with sling for comfort) Medical/Surgical Precaution: Yes Medical/Surgical Precautions: (Aspiration/Fall/Seizure precautions) DIAGNOSIS: Patient Active Problem List Diagnosis ??? Seizure Past Medical History: Diagnosis Date ??? CVA (cerebral vascular accident) ??? HTN (hypertension) ??? Seizure SUBJECTIVE / PATIENT GOALS: Home living: Type of Residence: Apartment Lives with:: Alone Steps to Enter: 2 Ramp: No Handrails: Outdoor Home Structure: One Story Equipment At Home: Walker-4 Wheeled with Seat Prior Function: Mobility: Ambulate-In Community;With Assistive Device Fallen Within 6 Mos: No Have Help at Home?: Yes, there is help at home now How often is assistance provided?: Patient reported his brother assists at lunch and after he gets off work Level of Help Sufficient?: No Activity at Home: Active At start of therapy session, patient found in bed and on continuous EEG, with portable box. Pain: Patient has 0/10 pain Follow-up for pain: No follow-up for pain indicated and patient agreed to proceed with treatment OBJECTIVE: General Appearance: 57yo male resting in bed in NAD Precautions: IV's: Peripheral line Edema: No significant edema noted. Vital Signs:(*Assess the 3 levels of oxygen saturations both for room air and 02 unless rest on room air is 88% or less). Pre-activity BP: HR: O2 SAT: L 02 Room air Peak activity BP: HR: O2 SAT: L 02 Room air Post cool down BP: HR: O2 SAT: L 02 Room air VS stable throughout evaluation. Patient with no signs or symptoms of distress. Cognitive: Alert and oriented x3-4. Followed commands 90%. Impulsive, with impaired safety awareness and insight into deficits. Perceptual: WFL Upper extremity range of motion: AROM BUE WFL (R shoulder not fully assessed 2* clavicle fx) Upper extremity strength: LUE 4/5; RUE NT 2* NWB Tone: WFL Coordination: Intact Sensation: Intact Patient's activity tolerance: fair FUNCTIONAL MOBILITY Not tested Independent Stand by Assist Minimal Moderate Maximum Dependent Rolling x Supine to/from sit x Sit to/from Standing x Bed to/from chair x Patient required verbal cues to maintain NWB RUE throughout. Functional mobility of ambulation household distance (~50ft, observed with PT) with: minimal assistusing small based quad cane Balance: Static Sitting: good minus Dynamic Sitting: good minus Static Standing: fair minus Dynamic Standing: poor plus Feeding: NT Self-Care: Patient donned pants, socks, and shoes EOB with minimal assist. General Observation: Patient cooperative, willing to participate with OT; requires redirection at times. Splint Issued/Checked: none TREATMENT / EDUCATION / EVALUATION: Purpose of Occupational Therapy evaluation explained. While performing mobility and self care, Patient was instructed in: Functional mobility training/weight bearing status, Safety awareness/fall precaution, Discharge plan and Self care training Presented to patient who demonstrates Fair understanding of instructions given. INFORMED CONSENT TO TREATMENT: Plan of care including recommended therapy, goals and frequency, as well as potential risks and benefits of treatment/assessment explained to patient. Patient understands and agrees to proceed. ASSESSMENT: Patient would benefit from skilled OT services to address the following functional limitations: Functional performance limited due to: limited activities of daily living, decreased mobility, decreased cognition, upper extremity function, endurance and decreased safety awareness Nurse and PT contacted regarding patient status and/or discharge plan. Short Term Goals: Patient will perform grooming Standing at sink and With stand by assist Patient will perform upper extremity dressing With stand by assist Patient will transfer to toilet With standby assist Education: good and safety education [employer] Worker Goal: Patient to discharge to appropriate next level of inpatient care Plan: OT Frequency: 5 Times/Week If patient is discharged from the facility, this note serves as a discharge summary if further occupational therapy visits did not occur. Following therapy session, patient left in bed and with call light within reach. Trista Butkovich, KENNEDYR/L 10/15/2017 * Leatha Vinson MD - 10/15/2017 12:13 PM CDT NOTE FOR EDUCATIONAL PURPOSES ONLY Neurology Progress Note Patient: Bi Tabor Jr. (:1960) Room: [address] [place] [address] Subjective: Bi Tabor Jr. is a 57 y.o. male who presented to the ED on 10/13 for medication clarification aftertaking too much Keppra due to medication dosing miscommunication. He felt very sick and was noted to have several episodes of seizure-like activity. No significant overnight events. Objective: BP 124/81 Pulse 77 Temp 98.4 ??F (36.9 ??C) Resp 18 SpO2 98% Exam: General appearance: alert, no acute distress Extremities: R shoulder pain, but full ROM and strength in shoulder. Cortical Function: MS: Awake, Alert, Follows Commands Language: Fluent, Coherent, speaks loudly VF: not intact in LLQ Cranial Nerves: Pupils equal, BRTL, Full EOM, No ptosis or nystagmus No facial palsy Uvula deviates to left; Normal tongue protrusion Motor: Abnormal Movements: None Bulk: Normal Strength: Appropriate for Age RUE 5/5 LUE 5/5 RLE 5/5 LLE 5/5 DTR: Brisk in all extremities Cerebellar: FNF dysmetric Gait: Deferred Labs: LABS CBC Recent Labs Component Name 10/15/17 0206 10/14/17 0424 10/13/17 1341 WBC 7.7 8.9 9.3 HGB 14.2 14.5 15.1 HCT 41.4 42.4 43.6 MCV 92.6 92.8 93.0 PLT 186 193 183 BMP Recent Labs Component Name 10/15/17 0206 10/14/17 0424 10/13/17 1526 CREATININE 0.8 0.8 0.8 BUN 14 11 13 NA 138 139 138 CL 104 104 101 CO2 27 25 25 LFTs Recent Labs Component Name 10/14/17 1349 ALT 9 AST 18 ALKPHOS 86 TBILI 0.6 Medications: Current Facility-Administered Medications: divalproex sprinkle (DEPAKOTE SPRINKLE) capsule 500 mg traMADol (ULTRAM) tablet 50 mg enoxaparin (LOVENOX) injection 40 mg amLODIPine (NORVASC) tablet 5 mg aspirin (ASPIRIN) chew tablet 81 mg atorvastatin (LIPITOR) tablet 40 mg cyanocobalamin (VITAMIN B-12) tablet 1,000 mcg folic acid (FOLVITE) tablet 1 mg gabapentin (NEURONTIN) capsule 300 mg levETIRAcetam (KEPPRA) tablet 1,500 mg thiamine (VITAMIN B-1) tablet 100 mg Hospital Problems: Assessment Mr. Tabor a 57 year old male with history of stroke and seizures who presented after a fall and seizure-like activity for medication clarification. Seizures appear to be under control since 5:00am 10/14. XR demonstrated R clavicular fracture. Ortho says the arm is non weight bearing and stabilized the arm in a sling. Seizures Plan: - remove EEG - continue Depakote 500mg BID and Keppra 1500mg BID for seizure control Clavicular Fractures Plan: - Follow Ortho and PT/OT recs - Follow-up with Ortho in clinic [facility] Medical Student 10/15/2017 12:13 PM Attending Note: Patient seen and examined with Dr. Cruz. I confirm the history, physical findings, assessment, and plan as documented. My additions and/or exceptions are noted below: 57 year-old man with epilepsy on keppra 1500 mg bid is admitted after having a few seizures at ED. He lives alone and has box for his medication, however was not clear about his medication dose. He had three seizures at the ER, was admitted and cEEG showed one seizure yesterday 5 am and has been seizure free since, his exam is at baseline he is awake and oriented X3, cranial nerves are intact, has clavicular frx on the right side likely after one of his seizures, following by ortho and thy recommended sling with OP f/u. Discharge per PT/OT and follow up with neurology epilepsy clinic and Ortho clinic as OP. Seizure and fall precaution. Continue keppra 1500 mg bid and depakote 500 bid. Leatha Vinson MD., PhD. * Meredith Ray, PT - 10/15/2017 8:55 AM CDT [facility] Physical Medicine and Rehabilitation PhysicalTherapy Initial Evaluation Note Patient: Bi Tabor Jr. Med Record Number: [id number] Date of : 1960 Age: 57 y.o. Co-eval with OT Recommendation: PT Frequency: 5 Times/Week Treatment/Interventions: Endurance training;Functional transfer training;LE strengthening/ROM;Patient/family training;Gait training;Bed mobility Recommendation: Patient will benefit from inpatient multidisciplinary therapies (If patient refusesinpatient therapy, patient will require home health therapy and supervision 2/2 decreased balance) Equipment Recommended: Small Base Quad Cane Patient currently using SBQC and needs equipment if d/c home. Patient is NWB R UE s/p fall and will benefit from use of a SBQC to allow the patient to ambulate functional household distances (kitchen, bedroom, bathroom) in a reasonable time frame. Patient continues to be instructed in safety with the device and without the device would otherwise be unable to complete gait/mobility activities. Nurse and Occupational Therapy contacted regarding patient status and/or discharge plan. Physician Orders: Evaluation and Treat PRECAUTIONS: Fall, NWB R UE, and Seizure Activity Level as tolerated DIAGNOSIS: Patient Active Problem List Diagnosis ??? Seizure Past Medical History: Diagnosis Date ??? CVA (cerebral vascular accident) ??? HTN (hypertension) ??? Seizure SUBJECTIVE: I need to get to latter-day PATIENT GOALS: Return to apartment Home living: Type of Residence: Apartment Lives with:: Alone Steps to Enter: 2 Ramp: No Handrails: Outdoor Home Structure: One Story Prior Function: Mobility: Ambulate-In Community;With Assistive Device Fallen Within 6 Mos: No Have Help at Home?: Yes, there is help at home now How often is assistance provided?: (Caregiver to assist with cleaning, cooking) At start of therapy session, patient found in bed and with no alarm Pain: Patient has 0/10 pain Follow-up for pain: No follow-up for pain indicated and patient agreed to proceed with treatment OBJECTIVE: General Appearance: 57 year old male laying in the bed, NAD Precautions: IV's: Peripheral line Skin, Incisions, Edema: skin intact Vital Signs:(*Assess the 3 levels of oxygen saturations both for room air and 02 unless rest on room air is 88% or less). Rest: BP: HR: O2 SAT: L 02 Room air Post Ex/gait: BP: HR: O2 SAT: L 02 Room air Post cool down BP: HR: O2 SAT: L 02 Room air Observations: No signs of distress or patient c/o shortness of breath/dizziness during treatment MENTAL STATUS: Alert and oriented times 4 DIRECTION FOLLOWING: Able to follow 1 step commands 90%, patient is impulsive at times with verbal cues for attention to task ROM: WFL bilateral LE's grossly STRENGTH: 4/5 bilateral LE's grossly SENSATION: intact bilateral LE's TONE: intact NEGLECT: none noted COORDINATION: decreased velocity of movement during gait FUNCTIONAL MOBILITY Not Tested Not Applicable Independent Stand by Assist Minimal Moderate Maximum Dependent Rolling X Scooting X Supine to/from sit X Sit to/from Stand X Bed to/ chair X Observation: Patient requires verbal cues for maintaining NWB R UE during bed mobility BALANCE: Sitting Static: good minus Dynamic: good minus Standing Static: fair minus Dynamic: poor plus Observation: Patient required unilateral UE support for standing balance with min assist GAIT: Weight Bearing: NWB R UE Distance: 50 feet Device: SBQC Assistance: Minimal assist Balance: Poor plus Steps: N/A fair endurance Observation: Slow renae, decreased step height and heel strike bilaterally, kyphotic posture withverbal cues for directing gaze forward, cues for management of the SBQC ACTIVITY TOLERANCE: Patient's activity tolerance: fair TREATMENT : evaluation, bed mobility training, transfer training, gait training and balance activities EDUCATION: While performing PT, Patient was instructed in:Functional mobility training/weight bearing status, Safety awareness/fall precaution and Discharge plan. Patient required multiples cues for maintaining NWB of the R UE, use of the sling, and why he is unable to use the rollator walker 2/2 NWB R UE Patient demonstrated Fair understanding of instructions given. INFORMED CONSENT TO TREATMENT: Plan of care including recommended therapy, goals and frequency, discussed with patient who understands and agrees to proceed. ASSESSMENT: Patient's functional performance presently limited due to: medical condition, stairs, strength, endurance, bed mobility, transfers, gait, safety awareness and balance and Patient would benefit from additional Physical Therapy to achieve the following functional goals to enhance independence. Short Term Goals: Goal Formation With patient, Patient will transfer supine to/from sit Independently, Sit to stand goal: With stand by assist, Patient will ambulate 51-100 feet, With stand by assist and With assistive device and Patient will demonstrate standing balance Fair and + Detention Goal(s): Patient to discharge to appropriate next level of inpatient care Equipment Issued: gait belt Plan: If patient is discharged from the facility, this note serves as a discharge summary if further physical therapy visits did not occur. Following therapy session, patient left in bed, with bed alarm on, with call light within reach, with RN, Angelina aware and lateral bed pads in place Meredith Ray, PT 10/15/2017 * Nas Cordero, DO - 10/15/2017 7:50 AM CDT [facility] Orthopedic Surgery Progress Note Admit Date: 10/13/2017 9:05 AM October 15, 2017 Subjective No issues overnight, pain in right shoulder controlled. Data BP 127/75 Pulse 88 Temp 97.8 ??F (36.6 ??C) Resp 20 SpO2 100%Temp (24hrs), Av.3 ??F (36.8 ??C),Min:97.8 ??F (36.6 ??C), Max:99 ??F (37.2 ??C) Labs Recent Labs Component Name 10/15/17 0206 10/14/17 0424 10/13/17 1341 WBC 7.7 8.9 9.3 HGB 14.2 14.5 15.1 HCT 41.4 42.4 43.6 No results for input(s): INR in the last 50500 hours. Cultures None Physical Exam General appearance: No apparent distress. Right upper extremity: itnact motor R/M/U/AIN/PIN, Sensation intact to light touch in R/M/U nerve distributions distally, 2+ Radial pulse, Brisk capillary refill (<2 sec). Assessment/Plan Active Problems: Seizure 57M s/p ground level fall with right distal clavicle fracture. 1. right upper extremity: NWB 2. PT/OT 3. Pain Control 4. DVT Prophylaxis:per primary 5. Sling to right shoulder. 6. Upright xr reviewed 7. No surgical intervention at this time 8. Follow up in 2 weeks upon discharge with Dr. Owens 9. Please page Ortho with questions Nas Cordero DO 10/15/2017 7:51 AM * Elizabeth Sullivan RN - 10/14/2017 5:01 PM CDT Care Coordination Initial Assessment Case Management screen completed, welcome letter given. Met with patient Lives with Alone Prior Level of Functioning: Physical Limitations: None Requires assistance with:: None Discharge Plan: Anticipated level of care at discharge: Home Anticipated Discharge Date: 10/14/17 Transportation at discharge: Family Transportation to MD appointments: Family Equipment at Home: Walker-4 Wheeled with Seat Equipment Provider: PCP: Misael Maradiaga DO If no PCP, action taken: Pharmacy benefit: Yes. If no, action taken: Pharmacy: [facility] If patient requires HHC at discharge, he/she requests: No HHC in the past. No preference if indicated. Comments: Pt plans to D/C home. Pt states he is independent. Pt has good family support. Pt's sister, Adriane, . Jim Tabor, , patients brother. Will continue to follow. For any questions or needs please contact: Catering Cook Name/Phone number: Elizabeth Sullivan RN, Phone: [phone] 10/14/2017 * Meredith Ray, PT - 10/14/2017 3:04 PM CDT [facility] Department of Physical Medicine & Rehabilitation Progress Note Patient: Bi Tabor . Med Record Number: [id number] Date of : 1960 Age: 57 y.o. 10/14/17 1500 Missed Visit Missed Visit Patient is on continuous EEG and is unable to participate in skilled PT eval at this time. Awaiting weight bearing orders for the R UE. Will continue to follow. Meredith Ray, PT 10/14/2017 3:05 PM * Brian Jean - 10/14/2017 10:44 AM CDT NOTE FOR EDUCATIONAL PURPOSES ONLY Neurology Progress Note Patient: Bi Tabor Jr. (:1960) Room: [address] [place] [address] Subjective: Bi Tabor Jr. is a 57 y.o. male who presented to the ED on 10/13 for medication clarification aftertaking too much Keppra due to medication dosing miscommunication. He felt very sick and was noted to have several episodes of seizure-like activity. Mr. Tabor was noted to have a couple seizure-like events. He described an event at about 2:00pm yesterday of feeling confused and going to the door, and he thinks that event was a seizure based on his confused state. At about 5:00am this morning there was another episode, which just consisted of confusion, and he remained somewhat confused after the episode. EEG from that time was consistent withfrontal lobe epileptiform discharges. Objective: BP 120/89 Pulse 100 Temp 98.6 ??F (37 ??C) Resp 17 SpO2 98% Exam: General appearance: alert, no acute distress Extremities: R shoulder pain, but full ROM and strength in shoulder. Cortical Function: MS: Awake, Alert, Follows Commands Language: Fluent, Coherent, speaks loudly VF: intact in all quadrants Cranial Nerves: Pupils equal, BRTL, Full EOM, No ptosis or nystagmus No facial palsy Uvula deviates to left; Normal tongue protrusion Motor: Abnormal Movements: None Bulk: Normal Tone: Increased Strength: Appropriate for Age RUE 5/5 LUE 5/5 RLE 5/5 LLE 5/5 DTR: Brisk in all extremities Cerebellar: FNF dysmetric Gait: Ataxic Labs: LABS CBC Recent Labs Component Name 10/14/17 0424 10/13/17 1341 08/29/16 0651 WBC 8.9 9.3 9.1 HGB 14.5 15.1 13.8 HCT 42.4 43.6 40.4 MCV 92.8 93.0 92.7 PLT 193 183 144* BMP Recent Labs Component Name 10/14/17 0424 10/13/17 1526 08/29/16 0651 CREATININE 0.8 0.8 0.7 BUN 11 13 15 NA 139 138 143 CL 104 101 110* CO2 25 25 22 LFTs Recent Labs Component Name 10/13/17 1526 ALT 11 AST 23 ALKPHOS 88 TBILI 1.4* DIABETES Recent Labs Component Name 10/14/17 0424 GLU 94 CREATININE 0.8 Medications: Current Facility-Administered Medications: ketorolac (TORADOL) injection 30 mg valproate (DEPACON) 1,000 mg in 0.9% NaCl 60 mL IVPB enoxaparin (LOVENOX) injection 40 mg amLODIPine (NORVASC) tablet 5 mg aspirin (ASPIRIN) chew tablet 81 mg atorvastatin (LIPITOR) tablet 40 mg cyanocobalamin (VITAMIN B-12) tablet 1,000 mcg folic acid (FOLVITE) tablet 1 mg gabapentin (NEURONTIN) capsule 300 mg levETIRAcetam (KEPPRA) tablet 1,500 mg thiamine (VITAMIN B-1) tablet 100 mg Hospital Problems: Seizures Assessment: Mr. Tabor is a 57 year old male with history of seizures who presented for medication clarification. Mr. Tabor has had at least one clinical seizure with EEG verification while admitted, so additional seizure control may be warranted. Plan: - Pending MRI - Continue Keppra 1500mg BID - Depacon 1000mg ONCE to obtain seizure control Brian Dubach Medical Student 10/14/2017 10:47 AM * Meera Moreno MD - 10/14/2017 10:28 AM CDT Full details in patient's H&P: Overnight events: Patient with seizures noted on EEG overnight - prelim read with frontal discharges noted during events. Seizures inadequately controlled on Keppra 1500mg BID alone. Will load patient with Depakote 15mg/kg (1000mg) and check a level in 3-4 hours. Continuing Keppra 1500mg BID Awaiting MRI brain and c-spine Continue on EEG Discussed with Dr. Carney, Neurology Attending Meera Moreno MD Neurology Resident * Zulma Jane OT - 10/14/2017 8:45 AM CDT [facility] Department of Physical Medicine & Rehabilitation Progress Note Patient: Bi Tabor Jr. Med Record Number: [id number] Date of : 1960 Age: 57 y.o. 10/14/17 0800 Missed Visit Missed Visit Weight bearing status. Awaiting clarification of weight bearing status. Physician contacted to update orders. Will continue to follow. AM: Patient with R Clavicle Fx. Please update orders with appropriate WBing status for R UE. Paged team with no response ~10 minutes. PM: awaiting ortho consult for clavicle fracture, patient also connected to continuous EEG which limits functional assessment at this time. * Cony Estrella LPN - 10/13/2017 7:50 PM CDT While I was talking with pt and doing an assessment, pt was talking then he gripped the side of thebed and his whole body became to tense up and head turned to the left. He was not able to response to me when I called his name, no resp distress noted. I believe it may has lasted approx 45-50 sec, also his whole body was totally tensed and Rt leg was lifted off the bed. Pt returned to baseline and started back talking to me and denial he had a siezure, vs where taken and WDL documented in this encounter Procedure Notes * Delia Carmen MD - 10/15/2017 4:24 PM CDT EEG REPORT Patient Name: Bi Tabor Jr. Date: 10/16/2017 EEG#: [id number] Start Time: 9:56 am 10/15/2017 Stop Time: 10:21 am 10/15/2017 Clinical History: Bi Tabor Jr. is a 57 y.o. male with a history of stroke and seizures. This EEG is ordered for seizures. Description This is a continues 19-channel EEG tracing consisting of 18 channels of EEG obtained from electrodes placed on the scalp according to the international 10- 20 system and one channel of EKG monitoring.It captures the awake, drowsy states. It is a good quality study but had F7 electrode malfunction. Background The background consisted of a posterior dominant alpha rhythm 8 Hz, 10- 20 microvolt, and attenuated with eye opening. There was intermittent focal slowing in the right temporal region 2-3 Hz. There was no epileptiform abnormality recorded during the recording. Activation Procedures Activation procedures were not performed. Sleep Sleep patterns were not observed. EKG was observed throughout the recording. IMPRESSION This is an normal awake EEG due to right temporal focal slowing, suggestive of underline structure or functional abnormality. There was no epileptiform discharges were observed. Delia Carmen MD * Delia Carmen MD - 10/15/2017 10:39 AM CDT EEG REPORT Patient Name: Bi Tabor Jr. Date: 10/15/2017 EEG#: [id number] Start Time: 1:32 10/14/2017 Stop Time: 9:01 10/15/2017 Clinical History: Bi Tabor Jr. is a 57 y.o. male with history of stroke and seizures. This EEG isordered for seizures. Current medications Current Facility-Administered Medications: divalproex sprinkle (DEPAKOTE SPRINKLE) capsule 500 mg traMADol (ULTRAM) tablet 50 mg enoxaparin (LOVENOX) injection 40 mg amLODIPine (NORVASC) tablet 5 mg aspirin (ASPIRIN) chew tablet 81 mg atorvastatin (LIPITOR) tablet 40 mg cyanocobalamin (VITAMIN B-12) tablet 1,000 mcg folic acid (FOLVITE) tablet 1 mg gabapentin (NEURONTIN) capsule 300 mg levETIRAcetam (KEPPRA) tablet 1,500 mg thiamine (VITAMIN B-1) tablet 100 mg Description This is a continues 19-channel EEG tracing consisting of 18 channels of EEG obtained from electrodes placed on the scalp according to the international 10- 20 system and one channel of EKG monitoring.It captures the awake, drowsy, asleep states. It is a good quality study by compromised by movementartifact some time, and FP1 electrode malfunction during later stage of recording. Background The background was asymmetric. In the left hemisphere, the background activity consisted of a posterior dominant alpha rhythm 8 to 9 Hz, 10- 20 microvolt. In the right hemisphere, the background activity was perdominant theta rhythm 5 to 7 Hz, 10- 30 microvolt, sometime reach 8 Hz, with intermittent 2-3 Hz delta activity in the more temporal region. Paroxysmal Activity: There were interictal sharp wave discharges at F8 electrode seen more during drowsy and sleep than during awake. When the discharges had higher amplitude, it spread to bilateral frontal regions. On 10/14/2017 at 5:02 , he was suddenly waked up from sleep, sitting up confused, short hyper motor activity while EEG recorded myogenic activities. At 5:03, few rhythmic delta activities of 3 Hz recognized on EEG. He was awaked and answered question from his nurse, then lying down. At 5:06, he was sitting up again, confused, looking around. EEG recorded rhythmic activity in the right hemisphere gradually increased frequency from 5 to 8 Hz, more sharply contoured. At 5:07 He had vocalization, head turning to right with right arm flexion, low amplitude clonic movement short duration, automatismwith mouth movement, later hyper motor activity, swing of legs, left arm, then tonic legs flexion. When nurse came in, he had slurred speech. EEG reviewed 4-5 Hz rhythmic activity with myogenic artifacts. This clinical seizure lasted for 2 minute. Activation Procedures Activation procedures were not performed. Sleep Sleep stages1 to 2 were seen. Normal sleep architecture was identified as vertex sharp waves and sleep spindles. EKG was observed throughout the recording. IMPRESSION This is an abnormal EEG. The abnormalities [...] focal slowing, suggestive of underline structure/functional abnormalities. Delia Carmen M.D. documented in this encounter Consult Notes * Power Farley MD - 10/14/2017 2:27 PM CDT [facility] Orthopaedic Trauma Consultation Note 10/14/2017 Bi Tabor Jr., 57 y.o., male : 1960 CSN: [id number] Admitted: 10/13/2017 9:05 AM Consulting Service: Neurology Consulting Physician: Primary Care Physician: Misael Maradiaga DO Chief Complaint: Chief Complaint Patient presents with ??? Seizure Seizure activity yesterday and today, pt reports complaince with anti-epileptic meds HPI: Bi Tabor Jr. is a 57 y.o. male who presented to [facility] on 10/13/2017 for a medication clarification after taking too much Keppra. States he felt very unwell and describes several episodes of seizure-like activity. Patient has uncontrolled seizures and suffered a fall 3 days ago. At baseline, patient ambulates with a walker due to balance difficulties after stroke 3 years ago. Denies numbness/paresthesias. [facility] Orthopaedic Trauma Surgery consulted for evaluation/management of Right clavicle fracture The patient is Right hand dominant Smoking status: current everyday smoker Occupation: does not work PMH includes: seizures, stroke 3 years ago Past Medical History: Diagnosis Date ??? CVA (cerebral vascular accident) ??? HTN (hypertension) ??? Seizure No past surgical history on file. No current facility-administered medications on file prior to encounter. No current outpatient prescriptions on file prior to encounter. No Known Allergies Social History Social History ??? Marital status: [...] History Narrative ??? No narrative on file Objective: Blood pressure 121/82, pulse 99, temperature 98.1 ??F (36.7 ??C), resp. rate 17, SpO2 99 %. Lab results smartLinks are not currently available Lab results smartLinks are not currently available Physical Exam General: Awake, cooperative, in no acute distress. CV: Regular rate. Pulm: No audible wheezing, no use of accessory muscles Abd: soft, nontender, nondistended Neuro: CN's 2-12 grossly intact Musculoskeletal: Pelvis: Nontender to rotational, lateral, and Anterior-Posterior stresses RUE -Skin: skin intact, mild swelling/ecchymoses, to Right shoulder compartments soft/compressible -Tenderness: TTP to distal clavicle -ROM: not assessed -Motor: Fires EPL/FPL/ EDC/FDP/IO, Flexes/extends wrist -Neuro: SILT in Axillary/Median/Ulnar/Radial distributions -Vascular: 2+ radial pulse with brisk capillary refill, fingers warm and well perfused LUE -Skin: skin intact, compartments soft/compressible -Tenderness: nontender to palpation of clavicle, shoulder, elbow, wrist, fingers -ROM: nontender to passive range of motion of shoulder, elbow, wrist, fingers. No crepitation. -Motor: Fires EPL/FPL/ EDC/FDP/IO, Flexes/extends wrist -Neuro: SILT in Axillary/Median/Ulnar/Radial distributions -Vascular: 2+ radial pulse with brisk capillary refill, fingers warm and well perfused Imaging: Please see official radiographic report Right distal clavicle fracture, mildly displaced Assessment/Plan: 57 y.o. male with Right distal clavicle fracture 1. Weight bearing: NWB RUE 2. Sling for comfort 3. Upright XR Right clavicle pending 4. Will discuss this patient with the physicians of the [facility] Orthopaedic Trauma service and update plan as needed. 5. Ortho will continue to follow and update plan accordingly. Power Farley MD * Crescencio Carney MD - 10/13/2017 1:54 PM CDT Neurology Consult Note Date of Encounter: 10/13/2017 Chief Complaint: Seizure HPI: 57yo M with a history of post-stroke epilepsy since age 50, presenting to the ED for medication clarification - noted in ED to have multiple seizure episodes so neurology consulted for further management. Patient notes that he has been taking Keppra 1500mg BID regularly for as long as he can remember. However, he had his Keppra dose increased to 2000mg BID at [place]' emergency room after presenting for breakthrough seizure in early August. The day before presentation he noticed thata bottle said to take two of the 1000mg Keppra pills, so he took 1500mg (3 500mg pills) and 2000mg (2 1000mg pills) at the same time (3500mg total). He felt very sick for the rest of the day, noting nausea, diarrhea, dizziness, and anxiety. That night he believes that he fell (he has a painful R shoulder) and his brother found him standing up next to his walker and shaking. He went to [place]'s ED and was discharged later that night (he does not know what was done there). After getting home he took 2500mg Keppra (because he realized that 3500mg was too much), didn't feel ill at all, andwent to bed. He came in to the ED today to get clarification of what he is supposed to be doing with his medications. While in the ED he was witnessed to have multiple seizure episodes - described asstaring straight, grabbing the bed rails, and drooling. These lasted between 20 and 45 seconds. He was fully back to baseline following these events - no post-ictal state. He was loaded with Keppra 2000mg IV x1, but continued to have a few more episodes so neurology was called. Patient states that he remembers people asking him what was wrong, but does not remember having anyseizures while in the ED. He states he has not been sick lately other than yesterday after taking so much Keppra. He currently feels great. He does note that he is unsure if he is supposed to take his Gabapentin twice a day or three times a day. ROS: General Negative except per HPI Eyes [...] HPI Allergies: No Known Allergies Home Medications: ??? levETIRAcetam (KEPPRA) 500 MG tablet Take 3 tablets by mouth 2 TIMES DAILY. ??? gabapentin (NEURONTIN) 300 MG capsule Take 1 capsule by mouth 3 TIMES DAILY. ??? folic acid (FOLVITE) 1 MG tablet Take 1 tablet by mouth Daily. ??? Cyanocobalamin (B-12) 1000 MCG Cap Take 1 mg by mouth Daily. ??? tamsulosin (FLOMAX) 0.4 MG Cap Take 0.4 mg by mouth Nightly. ??? amLODIPine (NORVASC) 10 MG tablet Take 1 tablet by mouth Daily. ??? atorvastatin (LIPITOR) 40 MG tablet 1 tablet by Oral/FT route Nightly. ??? aspirin chewable 81 MG tablet Take 1 tablet by mouth Daily (unclear if patient taking) PMH: HTN Epilepsy R occipital ischemic stroke Physical Exam: Vitals: 10/13/17 10/13/17 10/13/17 10/13/17 1115 1145 1200 1215 BP: 137/86 140/90 153/88 Pulse: 75 88 79 (!) 115 Resp: SpO2: 99% 98% General : Alert, pleasant, no acute distress Extremities: Complaining of R shoulder pain, no distinct swelling or limitation of movement Cortical Function: MS: Awake, Alert, Follows Commands Oriented to Person, Place and Time Language: Fluent, Coherent, Repetition Intact VF L homonomous hemianopsia Neglect No visual neglect, No tactile neglect [...] 2 2 2 2 2 Down L 3 3 3 3 3 Down Sensory: Intact to light touch throughout Cerebellar: Dysmetria on FNF bilaterally, ataxia on HKS bilaterally Gait: Deferred - patient with some instability and using walker at baseline CT head: Unchanged from previous, no acute intracranial process. Focal area of encephalomalacia in the right occipital lobe. Assessment: 57yo M with a history of post-stroke epilepsy with multiple witnessed seizure like episodes in ED. Given the patient grabbing the hand rails and no post-ictal status, some question as to the nature of these events. Patient is also a somewhat poor historian. Keppra overdose is not known to induce seizures and patient has been taking appropriate (or supratherapeutic) levels. Concern for possible infectious or other inducing cause of patient's breakthrough seizures if these are epileptic seizures witnessed in the ED. Recommendations: Admit to neurology - attending Dr. Carney MRI Brain and cspine Continuous EEG Continue Keppra 1500mg BID Case findings discussed with Dr. Carney, Neurology Attending. Meera Moreno MD Neurology Resident Reviewed history, examined the patient, reviewed laboratory data and investigations. Agree with thedocumented resident notes, diagnosis and plan of management. History 57-year-old -[place] male with a history of post stroke seizures and cerebellar ataxia admitted with recurrent episodes of possible seizures. Examination has a tendency for loud explosive speech which could be from cerebral artery disease. Left-sided hemianopia. Has dysmetria and ataxia. MRI has evidence of old cerebral infarct in the occipital lobes, isabella and cerebellar atrophy. X-rays show evidence of clavicular fracture. Diagnosis post stroke seizures, cerebellar ataxia. Plan continue Keppra 1500 mg p.o. b.i.d., gabapentin, continuous EEG for seizures. Consult orthopedics for clavicular fracture. Please see resident notes for details Crescencio Carney MD Attending Physician, Neurology documented in this encounter ED Notes * Marcella Rouse, RN - 10/15/2017 4:24 PM CDT Called pt to provide results. HIV Ag/Ab and HCV Ab screens negative. Unable to leave message. MURRAY Chi, RN Lead Nurse Navigator Emergency Department [phone] * Elmo Tena RN - 10/13/2017 4:35 PM CDT Report to Trista SIMON 5N * Bartolo Claudio MD - 10/13/2017 4:31 PM CDT ASSUMED CARE NOTE Patient signed out to me by previous provider at 4:31 PM. Briefly, Bi Tabor Jr. is a 57 y.o. male being evaluated for seizure. Patient has hx of seizures and is on Keppra 3500mg BID. Had 4 seizures in the last 2 days. He also has clavicle fracture Plan for Neuro recs and MRI Vitals: 10/13/17 1315 10/13/17 1330 10/13/17 1345 10/13/17 1400 BP: (!) 157/101 153/93 141/87 143/87 Pulse: 105 83 75 92 Resp: 18 16 14 21 SpO2: 100% 100% 100% 99% ED Course: - Patient admitted to neurology service Clinical Impression: 1. Clavicle pain 2. Seizure 3. Closed nondisplaced fracture of acromial end of right clavicle, initial encounter Disposition: Admit to neuro * Elmo Tena RN - 10/13/2017 3:45 PM CDT Pt experienced another episode of seizure like activity, resident was able to step on and visualizeevent. Episode lasted approx 45 seconds, VS remained stable throughout, pt A&O x4 upon completion. Pt updated to POC, no further complaints at this time. * Kanika Hall MD - 10/13/2017 2:24 PM CDT ASSUMED CARE NOTE Patient signed out to me by Dr. Ferrell at 2:24 PM. Bi Tabor Jr. is a 57 y.o. male is being evaluated for seizures. Pt reportedly not compliant with his medication/ is unsure of his medication regimen. At this time the patient's condition is Stable.Pending lab work. Plan is pending per results and neurology recommendations. Labs Reviewed CBC W AUTO DIFFERENTIAL - Abnormal; Notable for the following: Result Value Neutrophil % 71.2 (*) Lymphocytes % 19.4 (*) Monocytes Absolute 0.83 (*) All other components within normal limits URINALYSIS W/MICROSCOPIC NO CULTURE - Abnormal; Notable for the following: Protein UA Trace (*) Ketones UA 15 (*) All other components within normal limits HIV-1 HIV-2 ANTIGEN/ANTIBODY - Normal HEPATITIS C AB SCREEN RFLX PCR QUANT - Normal DRUG SCREEN TOX URINE PANEL - Normal Narrative: The Urine Toxicology Screening Panel does not screen for Propoxyphene, Meprobamate, Carisoprodol, Trazodone, lbcd-[id number]-[id number] medications and/or volatiles (Acetone, Isopropanol, Methanol or Ethylene Glycol). Ethanol, Salicylate, Acetaminophen, Tricyclic Antidepressants and several therapeutic drugsmay be individually assayed in serum or plasma specimen. Toxicology testing by the [facility] is an aid to medical diagnosisand treatment of patients. No documented chain of custody was maintained. Results are intended to be used for clinical purposes only. BASIC METABOLIC PANEL (CALCIUM TOTAL) LEVETIRACETAM LEVEL HEPATIC FUNCTION PANEL XR SHOULDER RIGHT 2VW OR MORE Final Result EXAMINATION: XR SHOULDER RIGHT 2VW OR MORE HISTORY: M89.8X1: Clavicle pain COMPARISON: No prior study is available for comparison. FINDINGS: A distal right clavicle fracture has mild inferior displacement of the distal fragment. The glenohumeral joint is in anatomic alignment. Bone density and texture are normal. Soft tissue swelling is seen about the clavicle. IMPRESSION: Distal right clavicle fracture with mild inferior displacement of the distal fragment. Dictated by iRky Perez MD (radiology practitioner assistant). I, Dr. MADHURI FRANCO M.D. have personally reviewed and interpreted this examination/study. This report was electronically signed by MADHURI FRANCO M.D. on 10/13/2017 1:53 PM . XR CHEST 1VW Final Result EXAMINATION: XR CHEST 1VW HISTORY: M89.8X1: Clavicle pain COMPARISON: Comparison is made with a study from 04/11/2015. FINDINGS/IMPRESSION: There is no focal consolidation, pleural effusion, or pneumothorax. The cardiomediastinal silhouette is normal. A right clavicle fracture is partially imaged. Dictated by Riky Perez MD (radiology practitioner assistant). I, Dr. MAHDURI FRANCO M.D. have personally reviewed and interpreted this examination/study. This report was electronically signed by MADHURI FRANCO M.D. on 10/13/2017 1:[address] HEAD WO CONTRAST Final Result EXAMINATION: Computed tomography (CT) of the head without contrast HISTORY: Clavicular pain. TECHNIQUE: CT of the head was performed without contrast according to standard protocol. FINDINGS: Comparison is made with a study from August 27, 2016. No acute intra- or extra-axial fluid collections are identified. There is mild cerebral and cerebellar volume loss with associated ex vacuo ventricular dilatation. The basilar cisterns are patent. No mass effect or midline shift is seen. The garber-white matter differentiation is normal. 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 Focal area of encephalomalacia in the right occipital lobe is unchanged. Periventricular white matter hypoattenuation is indicative of chronic small vessel ischemic disease. . There is vascular calcification of the carotid siphons. Other than mild paranasal sinus disease, the visualized portions of the orbits, paranasal sinuses, and mastoids appear normal. No acute fracture is identified. Old fracture of the left lamina papyracea is noted. A hypoattenuating cystic lesion in the left occipital scalp measuring 24 mm has mildly increased in size and likely represents a sebaceous cyst. Clinical evaluation is advised. Cerumen is seen in the right external auditory canal. IMPRESSION: 1. No acute intracranial process with no significant change from previous examination. This report was electronically signed by MALACHI SUAREZ on 10/13/2017 1:08 PM . Vitals: 10/13/17 1315 10/13/17 1330 10/13/17 1345 10/13/17 1400 BP: (!) 157/101 153/93 141/87 143/87 Pulse: 105 83 75 92 Resp: 18 16 14 21 SpO2: 100% 100% 100% 99% Labs Reviewed CBC W AUTO DIFFERENTIAL - Abnormal; Notable for the following: Result Value Neutrophil % 71.2 (*) Lymphocytes % 19.4 (*) Monocytes Absolute 0.83 (*) All other components within normal limits URINALYSIS W/MICROSCOPIC NO CULTURE - Abnormal; Notable for the following: Protein UA Trace (*) Ketones UA 15 (*) All other components within normal limits HIV-1 HIV-2 ANTIGEN/ANTIBODY - Normal HEPATITIS C AB SCREEN RFLX PCR QUANT - Normal DRUG SCREEN TOX URINE PANEL - Normal Narrative: The Urine Toxicology Screening Panel does not screen for Propoxyphene, Meprobamate, Carisoprodol, Trazodone, ypvb-ewo-jmuhfwj medications and/or volatiles (Acetone, Isopropanol, Methanol or Ethylene Glycol). Ethanol, Salicylate, Acetaminophen, Tricyclic Antidepressants and several therapeutic drugsmay be individually assayed in serum or plasma specimen. Toxicology testing by the [facility] is an aid to medical diagnosisand treatment of patients. No documented chain of custody was maintained. Results are intended to be used for clinical purposes only. BASIC METABOLIC PANEL (CALCIUM TOTAL) LEVETIRACETAM LEVEL HEPATIC FUNCTION PANEL XR SHOULDER RIGHT 2VW OR MORE Final Result EXAMINATION: XR SHOULDER RIGHT 2VW OR MORE HISTORY: M89.8X1: Clavicle pain COMPARISON: No prior study is available for comparison. FINDINGS: A distal right clavicle fracture has mild inferior displacement of the distal fragment. The glenohumeral joint is in anatomic alignment. Bone density and texture are normal. Soft tissue swelling is seen about the clavicle. IMPRESSION: Distal right clavicle fracture with mild inferior displacement of the distal fragment. Dictated by Riky Perez MD (radiology practitioner assistant). I, Dr. MADHURI FRANCO M.D. have personally reviewed and interpreted this examination/study. This report was electronically signed by MADHURI FRANCO M.D. on 10/13/2017 1:53 PM . XR CHEST 1VW Final Result EXAMINATION: XR CHEST 1VW HISTORY: M89.8X1: Clavicle pain COMPARISON: Comparison is made with a study from 04/11/2015. FINDINGS/IMPRESSION: There is no focal consolidation, pleural effusion, or pneumothorax. The cardiomediastinal silhouette is normal. A right clavicle fracture is partially imaged. Dictated by Riky ePrez MD (radiology practitioner assistant). I, Dr. MADHURI FRANCO M.D. have personally reviewed and interpreted this examination/study. This report was electronically signed by MADHURI FARNCO M.D. on 10/13/2017 1:[address] HEAD WO CONTRAST Final Result EXAMINATION: Computed tomography (CT) of the head without contrast HISTORY: Clavicular pain. TECHNIQUE: CT of the head was performed without contrast according to standard protocol. FINDINGS: Comparison is made with a study from August 27, 2016. No acute intra- or extra-axial fluid collections are identified. There is mild cerebral and cerebellar volume loss with associated ex vacuo ventricular dilatation. The basilar cisterns are patent. No mass effect or midline shift is seen. The garber-white matter differentiation is normal. 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 Focal area of encephalomalacia in the right occipital lobe is unchanged. Periventricular white matter hypoattenuation is indicative of chronic small vessel ischemic disease. . There is vascular calcification of the carotid siphons. Other than mild paranasal sinus disease, the visualized portions of the orbits, paranasal sinuses, and mastoids appear normal. No acute fracture is identified. Old fracture of the left lamina papyracea is noted. A hypoattenuating cystic lesion in the left occipital scalp measuring 24 mm has mildly increased in size and likely represents a sebaceous cyst. Clinical evaluation is advised. Cerumen is seen in the right external auditory canal. IMPRESSION: 1. No acute intracranial process with no significant change from previous examination. This report was electronically signed by MALACHI SUAREZ on 10/13/2017 1:08 PM . Clinical Impression: 1. Clavicle pain 2. Seizure 3. Closed nondisplaced fracture of acromial end of right clavicle, initial encounter ED COURSE: 3:17 PM After discussion with neurology, the patient will be admitted to their service for further management of care. -I have reviewed the diagnostic findings with the patient and they have had an opportunity to ask me any questions they have about care, diagnosis, and reason for admission. The patient states understanding and agrees to admission. 3:56 PM: Rechecked Pt: pt doing well. Agrees with plan for admission. Disposition: Admit to Neurology By signing my name below, IGifty, attest that this documentation has been prepared under thedirection and in the presence of Dr. Hlal. Signed: Laisha Willard. Date: 10/13/2017. Time:2:26 PM. I, Dr. Hall, personally performed the services described in this documentation. All medical record entries made by the scribe were at my direction and in my presence. I have reviewed the chart and agree that the record reflec ts my personal performance and is accurate and complete. * Elmo Tena RN - 10/13/2017 12:14 PM CDT Pt again experienced approx 15-30 seconds of seizure-like activity, no post ictal period, resident aware. * Elmo Tena RN - 10/13/2017 11:29 AM CDT Pt experienced approx 45 seconds of seizure like activity in which he gripped siderail, became tense, stared off without response to stimuli, did not recognize verbal stimuli, and drooled. Resident notified, pt was baseline upon arrival. RN to continue monitoring, no further orders at this time. * Elmo Tena RN - 10/13/2017 11:10 AM CDT Pt resting comfortably in bed at this time, states ibuprofen moderately effective for pain control,ERP at bedside updating pt to POC. * Elmo Tnea RN - 10/13/2017 9:53 AM CDT Reeducated pt to daily medication regimen, pt able to teach back at this time. * Nadir Ferrell MD - 10/13/2017 9:52 AM CDT Resident Attestation: I have performed an independent history and physical examination and discussed the patient's management with the resident. I agree with the findings, assessment and plan of care by the resident. My history and physical is noted below. Chief complaint: Chief Complaint Patient presents with ??? Seizure Seizure activity yesterday and today, pt reports complaince with anti-epileptic meds HPI: Bi Tabor Jr. is a 57 y.o. male who presents to the ER for shoulder pain. Patient states that he has had increased seizures. Patient states that he had a seizure yesterday and then a small seizure today states he has not been taking his Keppra the way is supposed to. At home states that he now knows that he should been taking it different. No chest pain no shortness of breath no headache this isno different than his previous seizures in the past. Sees Neurology at [facility]. Takes 2 g of Keppra twice a day but has only been taking 1 g. He has been having no other complaints hasno numbness of the arm no weakness of the arm just states when he tries to move his right shoulder he has more pain. Past Medical History: Diagnosis Date ??? HTN (hypertension) ??? Seizure No past surgical history on file. Review of Systems GEN: No fever EYES: no sudden changes in vision HEENT: no URI symptoms PULM: no shortness of breath, no cough CHEST: no chest pain, no palpitations GI: no abdominal pain, no nausea, no vomiting : no UTI symptoms, no hematuria MSK: Pain in the right shoulder NEURO: no headaches, no focal weakness/numbness ENDO: no heat/cold intolerance SKIN: no rashes Physical Exam: Vitals: 10/13/17 1315 10/13/17 1330 10/13/17 1345 10/13/17 1400 BP: (!) 157/101 153/93 141/87 143/87 Pulse: 105 83 75 92 Resp: 18 16 14 21 SpO2: 100% 100% 100% 99% General: Alert, no obvious distress Head: Normocephalic, no obvious abnormality Eyes: No acute lesions Mouth: Moist membranes Neck: No JVD, Supple Back: No CVA tenderness Heart: RRR, no murmur, rub or gallop Lung: No respiratory distress, Equal breath sounds, CTA bilaterally Abdomen: Soft, bowel sounds normal, nondistended, all quadrants palpated with no significant tenderness, No pulsatile mass Extremities: No cyanosis, no significant peripheral edema, right shoulder/trapezius tender to palpation full range of motion of the shoulder, no numbness of the shoulder pulses are 2+ sensation is intact. No cervical spine tenderness. Pulses: Equal pulses x 4 Skin: No acute rash Lymph: No lymphadenopathy Neuro: Mental status: A/Ox3 CN: II, III, IV, - EOMi, PERRL V - Sensation intact on face bilaterally VII - Face symmetric VIII- Hearing grossly intact XI - Shrugs shoulders symmetric XII - Tongue midline Sensory: Sensation intact to sharp/dull differentiation in all extremities. Motor: Motor: Normal tone and bulk. No abnormal movements appreciated. No pronator drift. RUE: 5/5 Wrist flexion/extension, elbow flexion/extension, shoulder abduction LUE: 5/5 Wrist flexion/extension, elbow flexion/extension, shoulder abduction RLL: 5/5 Straight leg raise, knee flexion/extension, ankle dorsiflexion/plantarflexion. LLE: 5/5 Straight leg raise, knee flexion/extension, ankle dorsiflexion/plantarflexion. Gait: Patient ambulates with a steady gait. Coordination: Finger to nose and heel to francisco testing intact bilaterally. Reflexes: Brachioradialis, biceps, and patellar reflexes WNL and symmetric bilaterally. Babinski: Downgoing toes bilaterally. Medical Decision Making: Problem list: 1. Right shoulder pain 2. Seizure 3. Noncompliance with seizure medications DDx: Noncompliance, shoulder fracture, shoulder dislocation, shoulder contusion, seizure disorder Plan of Care: X-ray chest x-ray shoulder reload with his Jocelyn. ED Course: Labs Reviewed CBC W AUTO DIFFERENTIAL - Abnormal; Notable for the following: Result Value Neutrophil % 71.2 (*) Lymphocytes % 19.4 (*) Monocytes Absolute 0.83 (*) All other components within normal limits URINALYSIS W/MICROSCOPIC NO CULTURE - Abnormal; Notable for the following: Protein UA Trace (*) Ketones UA 15 (*) All other components within normal limits HIV-1 HIV-2 ANTIGEN/ANTIBODY - Normal HEPATITIS C AB SCREEN RFLX PCR QUANT - Normal DRUG SCREEN TOX URINE PANEL - Normal Narrative: The Urine Toxicology Screening Panel does not screen for Propoxyphene, Meprobamate, Carisoprodol, Trazodone, xcbb-jrf-elpddko medications and/or volatiles (Acetone, Isopropanol, Methanol or Ethylene Glycol). Ethanol, Salicylate, Acetaminophen, Tricyclic Antidepressants and several therapeutic drugsmay be individually assayed in serum or plasma specimen. Toxicology testing by the [facility] is an aid to medical diagnosisand treatment of patients. No documented chain of custody was maintained. Results are intended to be used for clinical purposes only. BASIC METABOLIC PANEL (CALCIUM TOTAL) LEVETIRACETAM LEVEL HEPATIC FUNCTION PANEL XR SHOULDER RIGHT 2VW OR MORE Final Result EXAMINATION: XR SHOULDER RIGHT 2VW OR MORE HISTORY: M89.8X1: Clavicle pain COMPARISON: No prior study is available for comparison. FINDINGS: A distal right clavicle fracture has mild inferior displacement of the distal fragment. The glenohumeral joint is in anatomic alignment. Bone density and texture are normal. Soft tissue swelling is seen about the clavicle. IMPRESSION: Distal right clavicle fracture with mild inferior displacement of the distal fragment. Dictated by Riky Perez MD (radiology practitioner assistant). Dr. MADHURI Thomason M.D. have personally reviewed and interpreted this examination/study. This report was electronically signed by MADHURI FRANCO M.D. on 10/13/2017 1:53 PM . XR CHEST 1VW Final Result EXAMINATION: XR CHEST 1VW HISTORY: M89.8X1: Clavicle pain COMPARISON: Comparison is made with a study from 04/11/2015. FINDINGS/IMPRESSION: There is no focal consolidation, pleural effusion, or pneumothorax. The cardiomediastinal silhouette is normal. A right clavicle fracture is partially imaged. Dictated by Riky Perez MD (radiology practitioner assistant). Dr. MADHURI Thomason M.D. have personally reviewed and interpreted this examination/study. This report was electronically signed by MADHURI FRANCO M.D. on 10/13/2017 1:[address] HEAD WO CONTRAST Final Result EXAMINATION: Computed tomography (CT) of the head without contrast HISTORY: Clavicular pain. TECHNIQUE: CT of the head was performed without contrast according to standard protocol. FINDINGS: Comparison is made with a study from August 27, 2016. No acute intra- or extra-axial fluid collections are identified. There is mild cerebral and cerebellar volume loss with associated ex vacuo ventricular dilatation. The basilar cisterns are patent. No mass effect or midline shift is seen. The garber-white matter differentiation is normal. 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 Focal area of encephalomalacia in the right occipital lobe is unchanged. Periventricular white matter hypoattenuation is indicative of chronic small vessel ischemic disease. . There is vascular calcification of the carotid siphons. Other than mild paranasal sinus disease, the visualized portions of the orbits, paranasal sinuses, and mastoids appear normal. No acute fracture is identified. Old fracture of the left lamina papyracea is noted. A hypoattenuating cystic lesion in the left occipital scalp measuring 24 mm has mildly increased in size and likely represents a sebaceous cyst. Clinical evaluation is advised. Cerumen is seen in the right external auditory canal. IMPRESSION: 1. No acute intracranial process with no significant change from previous examination. This report was electronically signed by MALACHI SUAREZ on 10/13/2017 1:08 PM . No results found. 12:28 PM Patient had another seizure here in the emergency department secondary to this being his 3rd seizure today despite being loaded with his Keppra will consult Neurology to see patient also get blood work. 1:58 PM Patient has been seen by Neurology. They would like some additional lab work. And will determine his final recommendations. It of note they found out that he was not taking his seizure medications asprescribed he was taking them was taking 3500 mg of Keppra twice a day which is way over the therapeutic limit which could theoretically cause increased episodes of seizures. They would like LFTs to make sure his liver function tests have not been affected. X-ray of the shoulder demonstrates a distal clavicle fracture discussed with Orthopedics and will follow up with Orthopedics. Awaiting final Neurology Roland Final Clinical Impression: 1. Clavicle pain 2. Clavicle fracture 3. Seizure disorder and seizures Consult Yes Procedure done at this time No Ultrasound done at this time No Critical Care: 0 Please see resident note for further details. Nadir Ferrell MD 10/13/2017 9:52 AM * Elmo Tena RN - 10/13/2017 9:29 AM CDT Spoke with pt sister Adriane at pt request, can be reached at [phone]. Per sister pt recently had medication dose changed from 1500mg of Keppra BID to 2000mg BID after recent increase in seizure activity, sister reports that pt is complaint and has home health, states that he gets nervous at the hospital and gets it all mixed up. * Power Epperson MD - 10/13/2017 9:24 AM CDT Provider contact with the patient: 10/13/2017 09:24 Bi Tabor Jr. [id number] [facility] History Chief Complaint Patient presents with ??? Seizure Seizure activity yesterday and today, pt reports complaince with anti-epileptic meds HPI Pt is a 57 yo male with hx of seizures that presents for seizure. Per EMS pt had witnessed seizure lasting approx 30 seconds with diffuse shaking. No post ictal period. Pt reports compliance with AEDs. Pt states yesterday has had right sided neck pain related to a seizure. Denies numbness/weakness.Has had similar symptoms before. Has not taken anything for pain. Symptoms worse with movement, better with nothing. Past Medical History: Diagnosis Date ??? CVA [...] Systems Review of Systems Constitutional: Negative for fever. HENT: Negative for ear pain. Eyes: Negative for pain. Respiratory: Negative for cough. Cardiovascular: Negative for chest pain. Gastrointestinal: Negative for melena. Genitourinary: Negative for dysuria. Musculoskeletal: Positive for neck pain. Skin: Negative for rash. Neurological: Negative for headaches. Endo/Heme/Allergies: Negative for polydipsia. Psychiatric/Behavioral: Negative for depression. Physical Exam There were no vitals taken for this visit. Physical Exam Constitutional: No distress. HENT: Head: Normocephalic and atraumatic. Eyes: Conjunctivae are normal. Cardiovascular: Normal rate, regular rhythm and normal heart sounds. Pulmonary/Chest: Effort normal and breath sounds normal. Abdominal: Soft. He exhibits no distension. There is no tenderness. Musculoskeletal: R lateral neck TTP No midline TTP Neurological: Normal strength and sensation in upper and lower extremities Psychiatric: He has a normal mood and affect. Nursing note and vitals reviewed. Medications Current [...] ECG Interpretation Lab/SPO2 Interpretation Hospital Encounter on 10/13/17 HIV-1 HIV-2 ANTIGEN/ANTIBODY Result Value Ref Range HIV p24 Antigen/Antibody 1 & 2 Non-reactive Non-reactive HEPATITIS C AB SCREEN RFLX PCR QUANT Result Value Ref Range Hepatitis C Ab Non-reactive Non-reactive CBC W AUTO DIFFERENTIAL Result Value Ref Range WBC 9.3 3.5 - 10.5 10??3/uL RBC 4.69 4.30 - 5.70 10??6/uL Hemoglobin 15.1 13.5 - 17.5 g/dL Hematocrit 43.6 39.0 - 50.0 % MCV 93.0 81.0 - 97.0 fL MCH 32.2 28.0 - 34.0 pg MCHC 34.6 32.0 - 36.0 g/dL Platelet 183 150 - 400 10??3/uL RDW-SD 39.9 36.0 - 50.0 fL RDW-CV 11.9 11.2 - 14.8 % MPV 11.9 9.3 - 12.8 fL Neutrophil % 71.2 (H) 35.0 - 70.0 % Lymphocytes % 19.4 (L) 19.7 - 55.1 % Monocytes % 8.9 3.0 - 15.0 % Eosinophils % 0.4 0.0 - 6.0 % Basophil % 0.1 0.0 - 1.5 % Neutrophil Absolute 6.6 1.6 - 7.0 10??3/uL Lymphocytes Absolute 1.8 0.8 - 2.9 10??3/uL Monocytes Absolute 0.83 (H) 0.14 - 0.66 10??3/uL Eosinophil Absolute 0.04 0.00 - 0.22 10??3/uL Basophils Absolute 0.01 0.00 - 0.06 10??3/uL Immature Granulocyte % 0.2 0.0 - 1.0 % BASIC METABOLIC PANEL (CALCIUM TOTAL) Result Value Ref Range BUN 13 7 - 26 mg/dL Creatinine 0.8 0.6 - 1.2 mg/dL Sodium 138 136 - 145 mmol/L Potassium 3.8 3.5 - 4.5 mmol/L Chloride 101 98 - 107 mmol/L CO2 25 22 - 29 mmol/L Glucose 104 70 - 115 mg/dL Calcium 9.9 8.4 - 10.2 mg/dL Anion Gap 16 8 - 18 BUN/Creatinine Ratio 16 7 - 23 Calculated Osmolality 286 270 - 300 mOsm/kg eGFR >60 >60 mL/min/1.73 m2 LEVETIRACETAM LEVEL Result Value Ref Range Keppra Levetiracetam 32.4 10.0 - 40.0 ug/mL URINALYSIS W/MICROSCOPIC NO CULTURE Result Value Ref Range Color Yellow Straw, Yellow, Colorless, Light Yellow Clarity Clear Clear Specific [place] UA 1.009 1.001 - 1.030 pH UA 6.0 5.0 - 8.0 Protein UA Trace (Abnormal) <=20 mg/dL Glucose UA Negative Negative mg/dL Ketones UA 15 (Abnormal) Negative mg/dL Bilirubin UA Negative Negative mg/dL Blood UA Negative Negative Nitrite UA Negative Negative Leukocyte Esterase UA Negative Negative Urobilinogen UA <2.0 <2.0 mg/dL RBC UA 1 0 - 8 /HPF WBC UA <1 0 - 2 /HPF DRUG SCREEN TOX URINE PANEL Result Value Ref Range Amphetamines, Urine Screen Negative Negative: < 1000 ng/mL Barbiturates, Urine Screen Negative Negative: < 200 ng/mL Benzodiazepines, Urine Screen Negative Negative: < 200 ng/mL Opiates, Urine Screen Negative Negative: < 300 ng/mL Cocaine Metabolites, Urine Screen Negative Negative: < 300 ng/mL Phencyclidine, Urine Screen Negative Negative: < 25 ng/ml Cannabinoids (THC), Urine Screen Negative Negative: <50 ng/mL Methadone, Urine Screen Negative Negative: < 300 ng/mL HEPATIC FUNCTION PANEL Result Value Ref Range Total Protein 8.4 (H) 6.0 - 8.3 g/dL Albumin 4.8 3.4 - 5.0 g/dL Bilirubin Total 1.4 (H) 0.2 - 1.2 mg/dL Bilirubin Direct 0.4 0.0 - 0.5 mg/dL Bilirubin Indirect 1.0 Unconjugated Bilirubin is a calculated value: Reference ranges have not beenestablished. mg/dL Alkaline Phosphatase 88 40 - 150 Units/L ALT/SGPT 11 0 - 55 Units/L AST/SGOT 23 5 - 34 Units/L A/G Ratio 1.3 1.1 - 2.3 BASIC METABOLIC PANEL (CALCIUM TOTAL) Result Value Ref Range BUN 11 7 - 26 mg/dL Creatinine 0.8 0.6 - 1.2 mg/dL Sodium 139 136 - 145 mmol/L Potassium 3.6 3.5 - 4.5 mmol/L Chloride 104 98 - 107 mmol/L CO2 25 22 - 29 mmol/L Glucose 94 70 - 115 mg/dL Calcium 9.2 8.4 - 10.2 mg/dL Anion Gap 14 8 - 18 BUN/Creatinine Ratio 14 7 - 23 Calculated Osmolality 287 270 - 300 mOsm/kg eGFR >60 >60 mL/min/1.73 m2 CBC W AUTO DIFFERENTIAL Result Value Ref Range WBC 8.9 3.5 - 10.5 10??3/uL RBC 4.57 4.30 - 5.70 10??6/uL Hemoglobin 14.5 13.5 - 17.5 g/dL Hematocrit 42.4 39.0 - 50.0 % MCV 92.8 81.0 - 97.0 fL MCH 31.7 28.0 - 34.0 pg MCHC 34.2 32.0 - 36.0 g/dL Platelet 193 150 - 400 10??3/uL RDW-SD 40.1 36.0 - 50.0 fL RDW-CV 11.8 11.2 - 14.8 % MPV 11.1 9.3 - 12.8 fL Neutrophil % 57.5 35.0 - 70.0 % Lymphocytes % 31.3 19.7 - 55.1 % Monocytes % 10.8 3.0 - 15.0 % Eosinophils % 0.3 0.0 - 6.0 % Basophil % 0.1 0.0 - 1.5 % Neutrophil Absolute 5.1 1.6 - 7.0 10??3/uL Lymphocytes Absolute 2.8 0.8 - 2.9 10??3/uL Monocytes Absolute 0.96 (H) 0.14 - 0.66 10??3/uL Eosinophil Absolute 0.03 0.00 - 0.22 10??3/uL Basophils Absolute 0.01 0.00 - 0.06 10??3/uL Immature Granulocyte % 0.2 0.0 - 1.0 % MAGNESIUM BLOOD Result Value Ref Range Magnesium 1.8 1.6 - 2.6 mg/dL PHOSPHORUS BLOOD Result Value Ref Range Phosphorus 3.3 2.3 - 4.7 mg/dL VALPROIC ACID LEVEL Result Value Ref Range Valproic Acid Total 77 50 - 100 mcg/mL HEPATIC FUNCTION PANEL Result Value Ref Range Total Protein 7.0 6.0 - 8.3 g/dL Albumin 3.9 3.4 - 5.0 g/dL Bilirubin Total 0.6 0.2 - 1.2 mg/dL Bilirubin Direct 0.2 0.0 - 0.5 mg/dL Bilirubin Indirect 0.4 Unconjugated Bilirubin is a calculated value: Reference ranges have not beenestablished. mg/dL Alkaline Phosphatase 86 40 - 150 Units/L ALT/SGPT 9 0 - 55 Units/L AST/SGOT 18 5 - 34 Units/L A/G Ratio 1.3 1.1 - 2.3 BASIC METABOLIC PANEL (CALCIUM TOTAL) Result Value Ref Range BUN 14 7 - 26 mg/dL Creatinine 0.8 0.6 - 1.2 mg/dL Sodium 138 136 - 145 mmol/L Potassium 3.7 3.5 - 4.5 mmol/L Chloride 104 98 - 107 mmol/L CO2 27 22 - 29 mmol/L Glucose 90 70 - 115 mg/dL Calcium 8.8 8.4 - 10.2 mg/dL Anion Gap 11 8 - 18 BUN/Creatinine Ratio 18 7 - 23 Calculated Osmolality 286 270 - 300 mOsm/kg eGFR >60 >60 mL/min/1.73 m2 CBC W AUTO DIFFERENTIAL Result Value Ref Range WBC 7.7 3.5 - 10.5 10??3/uL RBC 4.47 4.30 - 5.70 10??6/uL Hemoglobin 14.2 13.5 - 17.5 g/dL Hematocrit 41.4 39.0 - 50.0 % MCV 92.6 81.0 - 97.0 fL MCH 31.8 28.0 - 34.0 pg MCHC 34.3 32.0 - 36.0 g/dL Platelet 186 150 - 400 10??3/uL RDW-SD 39.5 36.0 - 50.0 fL RDW-CV 11.7 11.2 - 14.8 % MPV 11.2 9.3 - 12.8 fL Neutrophil % 50.1 35.0 - 70.0 % Lymphocytes % 39.2 19.7 - 55.1 % Monocytes % 9.3 3.0 - 15.0 % Eosinophils % 1.3 0.0 - 6.0 % Basophil % 0.1 0.0 - 1.5 % Neutrophil Absolute 3.8 1.6 - 7.0 10??3/uL Lymphocytes Absolute 3.0 (H) 0.8 - 2.9 10??3/uL Monocytes Absolute 0.71 (H) 0.14 - 0.66 10??3/uL Eosinophil Absolute 0.10 0.00 - 0.22 10??3/uL Basophils Absolute 0.01 0.00 - 0.06 10??3/uL Immature Granulocyte % 0.3 0.0 - 1.0 % MAGNESIUM BLOOD Result Value Ref Range Magnesium 1.8 1.6 - 2.6 mg/dL PHOSPHORUS BLOOD Result Value Ref Range Phosphorus 2.9 2.3 - 4.7 mg/dL XR CLAVICLE RIGHT 2VW Final Result EXAMINATION: XR CLAVICLE RIGHT 2VW HISTORY: M89.8X1: Clavicle pain FINDINGS/IMPRESSION: Comparison is made with a study from 10/13/2017. A mildly displaced fracture of the distal clavicle is unchanged in alignment. Dictated by Gaurav Kumar MD (radiology practitioner assistant). This report was approved by Gaurav Kumar M.D. on 10/15/2017 10:[address] EDILBERTO Thomason MD have personally reviewed and interpreted this examination/study. This report was electronically signed by Dr. EDILBERTO MARTINEZ MD on 10/15/2017 11:01 AM . XR SHOULDER RIGHT 2VW OR MORE Final Result EXAMINATION: XR SHOULDER RIGHT 2VW OR MORE HISTORY: M89.8X1: Clavicle pain COMPARISON: No prior study is available for comparison. FINDINGS: A distal right clavicle fracture has mild inferior displacement of the distal fragment. The glenohumeral joint is in anatomic alignment. Bone density and texture are normal. Soft tissue swelling is seen about the clavicle. IMPRESSION: Distal right clavicle fracture with mild inferior displacement of the distal fragment. Dictated by Riky Perez MD (radiology practitioner assistant). Dr. MADHURI Thomason M.D. have personally reviewed and interpreted this examination/study. This report was electronically signed by MADHURI FRANCO M.D. on 10/13/2017 1:53 PM . XR CHEST 1VW Final Result EXAMINATION: XR CHEST 1VW HISTORY: M89.8X1: Clavicle pain COMPARISON: Comparison is made with a study from 04/11/2015. FINDINGS/IMPRESSION: There is no focal consolidation, pleural effusion, or pneumothorax. The cardiomediastinal silhouette is normal. A right clavicle fracture is partially imaged. Dictated by Riky Perez MD (radiology practitioner assistant). Dr. MADHURI Thomason M.D. have personally reviewed and interpreted this examination/study. This report was electronically signed by MADHURI FRANCO M.D. on 10/13/2017 1:[address] HEAD WO CONTRAST Final Result EXAMINATION: Computed tomography (CT) of the head without contrast HISTORY: Clavicular pain. TECHNIQUE: CT of the head was performed without contrast according to standard protocol. FINDINGS: Comparison is made with a study from August 27, 2016. No acute intra- or extra-axial fluid collections are identified. There is mild cerebral and cerebellar volume loss with associated ex vacuo ventricular dilatation. The basilar cisterns are patent. No mass effect or midline shift is seen. The garber-white matter differentiation is normal. 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 Focal area of encephalomalacia in the right occipital lobe is unchanged. Periventricular white matter hypoattenuation is indicative of chronic small vessel ischemic disease. . There is vascular calcification of the carotid siphons. Other than mild paranasal sinus disease, the visualized portions of the orbits, paranasal sinuses, and mastoids appear normal. No acute fracture is identified. Old fracture of the left lamina papyracea is noted. A hypoattenuating cystic lesion in the left occipital scalp measuring 24 mm has mildly increased in size and likely represents a sebaceous cyst. Clinical evaluation is advised. Cerumen is seen in the right external auditory canal. IMPRESSION: 1. No acute intracranial process with no significant change from previous examination. This report was electronically signed by MALACHI SUAREZ on 10/13/2017 1:08 PM . Progress Notes ED Course ED Course Medical Decision Making Orders Placed This Encounter ??? SLING ??? SLING ARM MED ??? XR CHEST 1VW ??? XR SHOULDER RIGHT 2VW OR MORE ??? CT HEAD WO CONTRAST ??? XR CLAVICLE RIGHT 2VW ??? HIV-1 HIV-2 ANTIGEN/ANTIBODY ??? HEPATITIS C AB SCREEN RFLX PCR QUANT ??? CBC W AUTO DIFFERENTIAL ??? BASIC METABOLIC PANEL (CALCIUM TOTAL) ??? LEVETIRACETAM LEVEL ??? URINALYSIS W/MICROSCOPIC NO CULTURE ??? DRUG SCREEN TOX URINE PANEL ??? HEPATIC FUNCTION PANEL ??? VALPROIC ACID LEVEL ??? HEPATIC FUNCTION PANEL ??? IP CONSULT TO [facility] INITIAL SCREENING ??? IP CONSULT TO [employer] [employer] [facility] ??? IP CONSULT TO ORTHOPEDICS ??? DISCONTD: levETIRAcetam (KEPPRA) tablet 1,000 mg ??? levETIRAcetam (KEPPRA) tablet 2,000 mg ??? ibuprofen (MOTRIN) tablet 600 mg ??? DISCONTD: levETIRAcetam (KEPPRA) 1,000 mg in 100 mL IVPB ??? DISCONTD: enoxaparin (LOVENOX) injection 40 mg ??? DISCONTD: amLODIPine (NORVASC) tablet 5 mg ??? DISCONTD: aspirin (ASPIRIN) chew tablet 81 mg ??? DISCONTD: atorvastatin (LIPITOR) tablet 40 mg ??? DISCONTD: cyanocobalamin (VITAMIN B-12) tablet 1,000 mcg ??? DISCONTD: folic acid (FOLVITE) tablet 1 mg ??? DISCONTD: gabapentin (NEURONTIN) capsule 300 mg ??? DISCONTD: levETIRAcetam (KEPPRA) tablet 1,500 mg ??? DISCONTD: thiamine (VITAMIN B-1) tablet 100 mg ??? ibuprofen (MOTRIN) tablet 400 mg ??? DISCONTD: ketorolac (TORADOL) injection 30 mg ??? valproate (DEPACON) 1,000 mg in 0.9% NaCl 60 mL IVPB ??? DISCONTD: divalproex sprinkle (DEPAKOTE SPRINKLE) capsule 500 mg ??? DISCONTD: traMADol (ULTRAM) tablet 50 mg ??? DISCONTD: divalproex sprinkle (DEPAKOTE SPRINKLE) 125 MG capsule ??? DISCONTD: levETIRAcetam (KEPPRA) 750 MG tablet ??? divalproex sprinkle (DEPAKOTE SPRINKLE) 125 MG capsule ??? levETIRAcetam (KEPPRA) 750 MG tablet ??? traMADol (ULTRAM) 50 MG tablet XR shows R clavicle fracture Discussed with neuro who will evaluate pt MRI pending Clinical Impression Final diagnoses: Clavicle pain Seizure Closed nondisplaced fracture of acromial end of right clavicle, initial encounter Dispo: Pending neuro recs Pt signed out to Dr Claudio * Elmo Tena RN - 10/13/2017 9:07 AM CDT Pt seen per EMS with c/o seizure activity yesterday and today. EMS was dispatched today for shoulder pain after yesterdays seizure activity, pt experienced additional seizure activity during transport per EMS. EMS reports approx 60 seconds of activity in which pt became stiff and drooled, no reported post ictal activity, no loss of bowel or bladder control. Pt reports presenting to [facility] yesterday after seizure activity. Pt states compliance with prescribed anti-epileptics, though is unsure of exact dosing regimen. Pt is alert and oriented at this time, right shoulder has full ROM with c/o tenderness to palpation, PMS intact to all extremities. * Elmo Tena RN - 10/13/2017 9:06 AM CDT Bed: 17 Expected date: Expected time: Means of arrival: Comments: [facility] seizure documented in this encounter Plan of Treatment Upcoming Encounters Date Type Department Care Team (Late st Contact Info) Description 12/05/2024 1:00 PM CDT Office Visit [facility] - Neurology [address] [place] [address], [place] [address] Sean Raymundo, DO [address] [place] [address] [place] [id number] documented as of this encounter Procedures Procedure Name Priority Date/Time Associated Diagnosis Comments CBC W AUTO DIFFERENTIAL AM Draw 10/15/2017 2:06 AM CDT BASIC METABOLIC PANEL (CALCIUM TOTAL) AM Draw 10/15/2017 2:06 AM CDT PHOSPHORUS BLOOD Routine 10/15/2017 2:06 AM CDT MAGNESIUM BLOOD Routine 10/15/2017 2:06 AM CDT XR CLAVICLE RIGHT 2VW Routine 10/14/2017 5:24 PM CDT Clavicle pain HEPATIC FUNCTION PANEL Routine 8 1:49 PM CDT VALPROIC ACID LEVEL Routine 10/14/2017 1 :49 PM CDT CBC W AUTO DIFFERENTIAL AM Draw 10/14/2017 4:24 AM CDT BASIC METABOLIC PANEL (CALCIUM TOTAL) AM Draw 10/14/2017 4:24 AM CDT PHOSPHORUS BLOOD Routine 10/14/2017 4:24 AM CDT MAGNESIUM BLOOD Routine 10/14/2017 4:24 AM CDT BASIC METABOLIC PANEL (CALCIUM TOTAL) STAT 10/13/2017 3:26 PM CDT HEPATIC FUNCTION PANEL STAT 8 3:26 PM CDT URINALYSIS W/MICROSCOPIC NO CULTURE STAT 10/13/2017 1:43 PM CDT URINE DRUG SCREEN IMMUNOASSAY STAT 10/13/2017 1:43 PM CDT LEVETIRACETAM LEVEL STAT 10/13/2017 1 :41 PM CDT CBC W AUTO DIFFERENTIAL STAT 10/13/2017 1:[address] HEAD WO CONTRAST STAT 10/13/2017 1 2:59 PM CDT Clavicle pain XR SHOULDER RIGHT 2VW OR MORE STAT 10/13/2017 11:48 AM CDT Clavicle pain XR CHEST 1VW STAT 10/13/2017 11:00 AM CDT Clavicle pain HIV-1 HIV-2 ANTIGEN/ANTIBODY STAT 10/13/2017 10:20 AM CDT HEPATITIS C AB SCREEN RFLX NAAT QUANT STAT 10/13/2017 10:20 AM CDT documented in this encounter Results * PHOSPHORUS BLOOD (10/15/2017 2:06 AM CDT) Phosphorus 2.9 2.3 - 4.7 mg/dL 10/15/2017 2:59 AM CDT [facility] Blood BLOOD SPECIMEN / Unknown Venipuncture / Unknown 10/15/2017 2:06 AM CDT 10/15/2017 2:28 AM CDT Crescencio Carney MD LAB - CHEMISTRY [facility] Performing Organization Address [facility]/ZIP Co de Phone Number [address] [phone] * MAGNESIUM BLOOD (10/15/2017 2:06 AM CDT) Magnesium 1.8 1.6 - 2.6 mg/dL 10/15/2017 2:59 AM CDT [facility] Blood BLOOD SPECIMEN / Unknown Venipuncture / Unknown 10/15/2017 2:06 AM CDT 10/15/2017 2:28 AM CDT Crescencio Carney MD LAB - CHEMISTRY [facility] Performing Organization Address [facility]/ZIP Co de Phone Number [address] [phone] * (ABNORMAL) CBC W AUTO DIFFERENTIAL (10/15/2017 2:06 AM CDT) WBC 7.7 3.5 - 10.5 10? 3 /uL 10/15/2017 2:48 AM CDT [facility] RBC 4.47 4.30 - 5.70 10? 6 /uL 10/15/2017 2:48 AM CDT [facility] Hemoglobin 14.2 13.5 - 17.5 g/dL 10/15/2017 2:48 AM CDT [facility] Hematocrit 41.4 39.0 - 50.0 % 10/15/2017 2:48 AM [facility] MCV 92.6 81.0 - 97.0 fL 10/15/2017 2:48 AM [facility] MCH 31.8 28.0 - 34.0 pg 10/15/2017 2:48 AM [facility] MCHC 34.3 32.0 - 36.0 g/dL 10/15/2017 2:48 AM [facility] Platelet Count 186 150 - 400 10? 3 /uL 10/15/2017 2:48 AM [facility] RDW-SD 39.5 36.0 - 50.0 fL 10/15/2017 2:48 AM [facility] RDW-CV 11.7 11.2 - 14.8 % 10/15/2017 2:48 AM [facility] MPV 11.2 9.3 - 12.8 fL 10/15/2017 2:48 AM [facility] Neutrophils % 50.1 35.0 - 70.0 % 10/15/2017 2:48 AM [facility] Lymphocytes % 39.2 19.7 - 55.1 % 10/15/2017 2:48 AM [facility] Monocytes % 9.3 3.0 - 15.0 % 10/15/2017 2:48 AM [facility] Eosinophils % 1.3 0.0 - 6.0 % 10/15/2017 2:48 AM [facility] Basophil % 0.1 0.0 - 1.5 % 10/15/2017 2:48 AM [facility] Neutrophils Absolute 3.8 1.6 - 7.0 10? 3 /uL 10/15/2017 2:48 AM [facility] Lymphocyte Absolute 3.0(H) 0.8 - 2.9 10? 3 /uL 10/15/2017 2:48 AM [facility] Monocytes Absolute 0.71(H) 0.14 - 0.66 10? 3 /uL 10/15/2017 2:48 AM [facility] Eosinophils Absolute 0.10 0.00 - 0.22 10? 3 /uL 10/15/2017 2:48 AM [facility] Basophils Absolute 0.01 0.00 - 0.06 10? 3 /uL 10/15/2017 2:48 AM [facility] Immature Granulocytes % 0.3 0.0 - 1.0 % 10/15/2017 2:48 AM [facility] Blood BLOOD SPECIMEN / Unknown Venipuncture / Unknown 10/15/2017 2:06 AM CDT 10/15/2017 2:28 AM T Crescencio Carney MD LAB - HEMATOLOGY ORD ERABLES [facility] [address] [phone] * BASIC METABOLIC PANEL (CALCIUM TOTAL) (10/15/2017 2:06 AM CDT) BUN 14 7 - 26 mg/dL 10/15/2017 2:59 AM [facility] Creatinine 0.8 0.6 - 1.2 mg/dL 10/15/2017 2:59 AM [facility] Sodium 138 136 - 145 mmol/L 10/15/2017 2:59 AM [facility] Potassium 3.7 3.5 - 4.5 mmol/L 10/15/2017 2:59 AM [facility] Chloride 104 98 - 107 mmol/L 10/15/2017 2:59 AM [facility] CO2 27 22 - 29 mmol/L 10/15/2017 2:59 AM [facility] Glucose 90 70 - 115 mg/dL 10/15/2017 2:59 AM [facility] Calcium 8.8 8.4 - 10.2 mg/dL 10/15/2017 2:59 AM [facility] Anion Gap 11 8 - 18 10/15/2017 2:59 AM [facility] BUN/Creatinine Ratio 18 7 - 23 10/15/2017 2:59 AM [facility] Osmolality Calculated 286 270 - 300 mOsm/kg 10/15/2017 2:59 AM [facility] eGFR >60 >60 mL/min/1.7 3 m2 10/15/2017 2:59 AM [facility] Blood BLOOD SPECIMEN / Unknown Venipuncture / Unknown 10/15/2017 2:06 AM CDT 10/15/2017 2:28 AM CDT Crescencio Carney MD LAB - CHEMISTRY [facility] Organization Address City/State/[place] [address], [facility] [phone] * XR CLAVICLE RIGHT 2VW (10/14/2017 5:24 PM CDT) Anatomical Region Laterality Modality Upper Extremity, Chest Radiograp hic Imaging 10/15/2017 8:48 AM CDT Impressions 10/15/2017 11:01 AM CDT FINDINGS/IMPRESSION: Comparison is made with a study from 10/13/2017. A mildly displaced fracture of the distal clavicle is unchanged in alignment. Dictated by Gaurav Kumar MD (radiology practitioner assistant). This report was approved ??by Gaurav [...] in alignment. Dictated by Gaurav Kumar MD (radiology practitioner assistant). This report was approved by Gaurav Kumar M.D. on 10/15/2017 10:[address] EDILBERTO Thomason MD have personally reviewed and interpretedthis examination/study. This report was electronically signed by Dr. EDILBERTO MARTINEZ MD on 10/15/2017 11:01 AM . Raul Mccurdy DO DIAGNOSTIC IMAGING ORDERABLES * HEPATIC FUNCTION PANEL (10/14/2017 1:49 PM CDT) Protein Total 7.0 6.0 - 8.3 g/dL 018 3:28 PM CDT [facility] Albumin 3.9 3.4 - 5.0 g/dL 10/14/2017 3:28 PM CDT [facility] Bilirubin Total 0.6 0.2 - 1.2 mg/dL 09/27 3:28 PM CDT [facility] Bilirubin Conjugated 0.2 0.0 - 0.5 mg/dL 10/14/2017 3:28 PM CDT [facility] Bilirubin Unconjugated 0.4 Unconjugated Bilirubin is a calculated value: Reference ranges have not been established. mg/dL 10/14/2017 3:28 PM CDT [facility] Alkaline Phosphatase 86 40 - 150 Units/L 10/14/2017 3:28 PM CDT [facility] ALT 9 0 - 55 Units/L 10/14/2017 3:28 PM CDT [facility] AST 18 5 - 34 Units/L 10/14/2017 3:28 PM CDT [facility] Albumin/Globulin Ratio 1.3 1.1 - 2.3 10/14/2017 3:28 PM CDT [facility] Blood BLOOD SPECIMEN / Unknown 10/14/2017 1:49 PM CDT 10/14/2017 2:10 PM CDT Robina Cruz DO LAB - CHEMISTRY [employer] [facility] Performing Organization Address City/[facility]/ZIP Co de Phone Number [facility] [address] [place] [address] * VALPROIC ACID LEVEL (10/14/2017 1:49 PM CDT) Valproic Acid Total 77 50 - 100 mcg/mL 10/14/2017 2:38 PM CDT [facility] Blood BLOOD SPECIMEN / Unknown 10/14/2017 1:49 PM CDT 10/14/2017 2:10 PM CDT Robina Cruz DO LAB - CHEMISTRY ORDFranchise [employer]IL[employer] [address] [phone] * PHOSPHORUS BLOOD (10/14/2017 4:24 AM CDT) Pathologist [facility] Phosphorus 3.3 2.3 - 4.7 mg/dL 10/14/2017 5:32 AM CDT [facility] Blood BLOOD SPECIMEN / Unknown Venipuncture / Unknown 10/14/2017 4:24 AM CDT 10/14/2017 4:52 AM CDT Crescencio Carney MD LAB - CHEMISTRY [facility] Performing Organization Address [facility]/ZIP Co de Phone Number [address] [phone] * MAGNESIUM BLOOD (10/14/2017 4:24 AM CDT) Pathologist [facility] Magnesium 1.8 1.6 - 2.6 mg/dL 10/14/2017 5:32 AM CDT [facility] Blood BLOOD SPECIMEN / Unknown Venipuncture / Unknown 10/14/2017 4:24 AM CDT 10/14/2017 4:52 AM CDT Crescencio Carney MD LAB - CHEMISTRY [facility] Performing Organization Address [facility]/State/ZIP Co de Phone Number [address] [phone] * (ABNORMAL) CBC W AUTO DIFFERENTIAL (10/14/2017 4:24 AM CDT) Pathologist [facility] WBC 8.9 3.5 - 10.5 10? 3 /uL 10/14/2017 4:56 AM CDT [facility] RBC 4.57 4.30 - 5.70 10? 6 /uL 10/14/2017 4:56 AM CDT [facility] Hemoglobin 14.5 13.5 - 17.5 g/dL 10/14/2017 4:56 AM CDT [facility] Hematocrit 42.4 39.0 - 50.0 % 10/14/2017 4:56 AM CDT [facility] MCV 92.8 81.0 - 97.0 fL 10/14/2017 4:56 AM [facility] MCH 31.7 28.0 - 34.0 pg 10/14/2017 4:56 AM [facility] MCHC 34.2 32.0 - 36.0 g/dL 10/14/2017 4:56 AM [facility] Platelet Count 193 150 - 400 10? 3 /uL 10/14/2017 4:56 AM [facility] RDW-SD 40.1 36.0 - 50.0 fL 10/14/2017 4:56 AM [facility] RDW-CV 11.8 11.2 - 14.8 % 10/14/2017 4:56 AM [facility] MPV 11.1 9.3 - 12.8 fL 10/14/2017 4:56 AM [facility] Neutrophils % 57.5 35.0 - 70.0 % 10/14/2017 4:56 AM [facility] Lymphocytes % 31.3 19.7 - 55.1 % 10/14/2017 4:56 AM [facility] Monocytes % 10.8 3.0 - 15.0 % 10/14/2017 4:56 AM [facility] Eosinophils % 0.3 0.0 - 6.0 % 10/14/2017 4:56 AM [facility] Basophil % 0.1 0.0 - 1.5 % 10/14/2017 4:56 AM [facility] Neutrophils Absolute 5.1 1.6 - 7.0 10? 3 /uL 10/14/2017 4:56 AM [facility] Lymphocyte Absolute 2.8 0.8 - 2.9 10? 3 /uL 10/14/2017 4:56 AM [facility] Monocytes Absolute 0.96(H) 0.14 - 0.66 10? 3 /uL 10/14/2017 4:56 AM [facility] Eosinophils Absolute 0.03 0.00 - 0.22 10? 3 /uL 10/14/2017 4:56 AM [facility] Basophils Absolute 0.01 0.00 - 0.06 10? 3 /uL 10/14/2017 4:56 AM [facility] Immature Granulocytes % 0.2 0.0 - 1.0 % 10/14/2017 4:56 AM [facility] Blood BLOOD SPECIMEN / Unknown Venipuncture / Unknown 10/14/2017 4:24 AM CDT 10/14/2017 4:52 AM CDT Crescencio Carney MD LAB - HEMATOLOGY ORD ERABLES [facility] [address] [phone] * BASIC METABOLIC PANEL (CALCIUM TOTAL) (10/14/2017 4:24 AM CDT) BUN 11 7 - 26 mg/dL 10/14/2017 5:32 AM [facility] Creatinine 0.8 0.6 - 1.2 mg/dL 10/14/2017 5:32 AM [facility] Sodium 139 136 - 145 mmol/L 10/14/2017 5:32 AM [facility] Potassium 3.6 3.5 - 4.5 mmol/L 10/14/2017 5:32 AM [facility] Chloride 104 98 - 107 mmol/L 10/14/2017 5:32 AM [facility] CO2 25 22 - 29 mmol/L 10/14/2017 5:32 AM [facility] Glucose 94 70 - 115 mg/dL 10/14/2017 5:32 AM [facility] Calcium 9.2 8.4 - 10.2 mg/dL 10/14/2017 5:32 AM [facility] Anion Gap 14 8 - 18 10/14/2017 5:32 AM [facility] BUN/Creatinine Ratio 14 7 - 23 10/14/2017 5:32 AM [facility] Osmolality Calculated 287 270 - 300 mOsm/kg 10/14/2017 5:32 AM [facility] eGFR >60 >60 mL/min/1.7 3 m2 10/14/2017 5:32 AM [facility] Blood BLOOD SPECIMEN / Unknown Venipuncture / Unknown 10/14/2017 4:24 AM CDT 10/14/2017 4:52 AM CDT Crescencio Carney MD LAB - CHEMISTRY [facility] [address] [phone] * (ABNORMAL) HEPATIC FUNCTION PANEL (10/13/2017 3:26 PM CDT) Protein Total 8.4(H) 6.0 - 8.3 g/dL 018 3:59 PM CDT [facility] Albumin 4.8 3.4 - 5.0 g/dL 10/13/2017 3:59 PM CDT [facility] Bilirubin Total 1.4(H) 0.2 - 1.2 mg/dL 09/27 3:59 PM CDT [facility] Bilirubin Conjugated 0.4 0.0 - 0.5 mg/dL 10/13/2017 3:59 PM CDT [facility] Bilirubin Unconjugated 1.0 Unconjugated Bilirubin is a calculated value: Reference ranges have not been established. mg/dL 10/13/2017 3:59 PM CDT [facility] Alkaline Phosphatase 88 40 - 150 Units/L 10/13/2017 3:59 PM CDT [facility] ALT 11 0 - 55 Units/L 10/13/2017 3:59 PM CDT [facility] AST 23 5 - 34 Units/L 10/13/2017 3:59 PM CDT [facility] Albumin/Globulin Ratio 1.3 1.1 - 2.3 10/13/2017 3:59 PM T [facility] Blood BLOOD SPECIMEN / Unknown Venipuncture / Unknown 10/13/2017 3:26 PM CDT 10/13/2017 3:42 PM CDT Power Epperson MD LAB - CHEMISTRY [facility] [address] [phone] * BASIC METABOLIC PANEL (CALCIUM TOTAL) (10/13/2017 3:26 PM CDT) Pathologist [facility] BUN 13 7 - 26 mg/dL 10/13/2017 3:59 PM [facility] Creatinine 0.8 0.6 - 1.2 mg/dL 10/13/2017 3:59 PM [facility] Sodium 138 136 - 145 mmol/L 10/13/2017 3:59 PM [facility] Potassium 3.8 3.5 - 4.5 mmol/L 10/13/2017 3:59 PM [facility] Chloride 101 98 - 107 mmol/L 10/13/2017 3:59 PM [facility] CO2 25 22 - 29 mmol/L 10/13/2017 3:59 PM [facility] Glucose 104 70 - 115 mg/dL 10/13/2017 3:59 PM [facility] Calcium 9.9 8.4 - 10.2 mg/dL 10/13/2017 3:59 PM [facility] Anion Gap 16 8 - 18 10/13/2017 3:59 PM [facility] BUN/Creatinine Ratio 16 7 - 23 10/13/2017 3:59 PM [facility] Osmolality Calculated 286 270 - 300 mOsm/kg 10/13/2017 3:59 PM [facility] eGFR >60 >60 mL/min/1.7 3 m2 10/13/2017 3:59 PM [facility] Blood BLOOD SPECIMEN / Unknown Venipuncture / Unknown 10/13/2017 3:26 PM CDT 10/13/2017 3:42 PM CDT Power Epperson MD LAB - CHEMISTRY [facility] Organization Address City/State/ZIP Co de Phone Number [address] [phone] * DRUG SCREEN TOX URINE PANEL (10/13/2017 1:43 PM CDT) [facility] Amphetamines Screen Urine Negative Negative: < 1000 ng/mL 10/13/2017 2:08 PM [facility] Barbiturates Screen Urine Negative Negative: < 200 ng/mL 10/13/2017 2:08 PM [facility] Benzodiazepine Screen Urine Negative Negative: < 200 ng/mL 10/13/2017 2:08 PM [facility] Opiates Urine Negative Negative: < 300 ng/mL 10/13/2017 2:08 PM [facility] Cocaine Metabolites Urine Negative Negative: < 300 ng/mL 10/13/2017 2:08 PM CDT [facility] Phencyclidine Screen Urine Negative Negative: < 25 ng/ml 10/13/2017 2:08 PM [facility] Cannabinoids Screen Urine Negative Negative: <50 ng/mL 10/13/2017 2:08 PM [facility] Methadone Screen Urine Negative Negative: < 300 ng/mL 10/13/2017 2:08 PM T [facility] Urine URINE / Unknown Collection / Unknown 10/13/2017 1:43 PM CDT 10/13/2017 1:49 PM CDT Narrative [facility] - 10/13/2017 2:08 PM CDT The Urine Toxicology Screening Panel does not screen for Propoxyphene, Meprobamate, Carisoprodol, Trazodone, [id number] medications and/or volatiles (Acetone, Isopropanol, Methanol or Ethylene Glycol). Ethanol, Salicylate, Acetaminophen, Tricyclic Antidepressants and several therapeutic drugs may be individually assayed in serum or plasma specimen. Toxicology testing by the [facility] is an aid to medical diagnosis and treatment of patients. No documented chain of custody was maintained. Results are intended to be used for clinical purposes only. ? Power Epperson MD LAB - URINE CHEMISTR Y ORDERABLES [facility] [address] [place] [address] * (ABNORMAL) URINALYSIS W/MICROSCOPIC NO CULTURE (10/13/2017 1:43 PM CDT) Color UA Yellow Straw, Yellow, Colorless, Light Yellow 10/13/2017 2:08 PM [facility] Clarity UA Clear Clear 10/13/2017 2:08 PM [facility] Specific [place] UA 1.009 1.001 - 1.030 10/13/2017 2:08 PM [facility] pH UA 6.0 5.0 - 8.0 10/13/2017 2:08 PM [facility] Protein UA Trace(A) <=20 mg/dL 10/13/2017 2:08 PM [facility] Glucose UA Negative Negative mg/dL 10/13/2017 2:08 PM [facility] Ketone UA 15(A) Negative mg/dL 10/13/2017 2:08 PM [facility] Bilirubin UA Negative Negative mg/dL 10/13/2017 2:08 PM [facility] Blood UA Negative Negative 10/13/2017 2:08 PM [facility] Nitrite UA Negative Negative 10/13/2017 2:08 PM [facility] Leukocyte Esterase Negative Negative 10/13/2017 2:08 PM [facility] Urobilinogen UA <2.0 <2.0 mg/dL 8 2:08 PM [facility] RBC UA 1 0 - 8 /HPF 10/13/2017 2:08 PM [facility] WBC UA <1 0 - 2 /HPF 10/13/2017 2:08 PM [facility] Urine URINE SPECIMEN OBTAINED BY CLEAN CATCH PROCEDURE / Unknown Collection / Unknown 10/13/2017 1:43 PM CDT 10/13/2017 1:49 PM T Power Epperson MD LAB - URINALYSIS ORD ERABLES [address] [phone] * LEVETIRACETAM LEVEL (10/13/2017 1:41 PM CDT) Levetiracetam 32.4 10.0 - 40.0 ug/mL 10/18/2017 4:21 PM CDT [facility] ([facility]) Blood BLOOD SPECIMEN / Unknown Venipuncture / Unknown 10/13/2017 1:41 PM CDT 10/13/2017 1:50 PM CDT Narrative [facility] ([facility]) - 10/18/2017 4:21 PM CDT Performed at: ??01 - [facility] [address] ??[id number] [employer]: Vito Hay MD, Phone: ??[phone] Power Epperson MD LAB - THERAPEUTIC DR DIAZ MONITORING ORDERABLES [facility]) [address] [place] [address] * (ABNORMAL) CBC W AUTO DIFFERENTIAL (10/13/2017 1:41 PM CDT) WBC 9.3 3.5 - 10.5 10? 3 /uL 10/13/2017 2:07 PM CDT [facility] RBC 4.69 4.30 - 5.70 10? 6 /uL 10/13/2017 2:07 PM CDT [facility] Hemoglobin 15.1 13.5 - 17.5 g/dL 10/13/2017 2:07 PM CDT [facility] Hematocrit 43.6 39.0 - 50.0 % 10/13/2017 2:07 PM CDT [facility] MCV 93.0 81.0 - 97.0 fL 10/13/2017 2:07 PM CDT [facility] MCH 32.2 28.0 - 34.0 pg 10/13/2017 2:07 PM CDT [facility] MCHC 34.6 32.0 - 36.0 g/dL 10/13/2017 2:07 PM CDT [facility] Platelet Count 183 150 - 400 10? 3 /uL 10/13/2017 2:07 PM CDT [facility] RDW-SD 39.9 36.0 - 50.0 fL 10/13/2017 2:07 PM [facility] RDW-CV 11.9 11.2 - 14.8 % 10/13/2017 2:07 PM [facility] MPV 11.9 9.3 - 12.8 fL 10/13/2017 2:07 PM [facility] Neutrophils % 71.2(H) 35.0 - 70.0 % 10/13/2017 2:07 PM [facility] Lymphocytes % 19.4(L) 19.7 - 55.1 % 10/13/2017 2:07 PM [facility] Monocytes % 8.9 3.0 - 15.0 % 10/13/2017 2:07 PM [facility] Eosinophils % 0.4 0.0 - 6.0 % 10/13/2017 2:07 PM [facility] Basophil % 0.1 0.0 - 1.5 % 10/13/2017 2:07 PM [facility] Neutrophils Absolute 6.6 1.6 - 7.0 10? 3 /uL 10/13/2017 2:07 PM [facility] Lymphocyte Absolute 1.8 0.8 - 2.9 10? 3 /uL 10/13/2017 2:07 PM [facility] Monocytes Absolute 0.83(H) 0.14 - 0.66 10? 3 /uL 10/13/2017 2:07 PM [facility] Eosinophils Absolute 0.04 0.00 - 0.22 10? 3 /uL 10/13/2017 2:07 PM [facility] Basophils Absolute 0.01 0.00 - 0.06 10? 3 /uL 10/13/2017 2:07 PM [facility] Immature Granulocytes % 0.2 0.0 - 1.0 % 10/13/2017 2:07 PM [facility] Blood BLOOD SPECIMEN / Unknown Venipuncture / Unknown 10/13/2017 1:41 PM CDT 10/13/2017 1:50 PM CDT Power Epperson MD LAB - [place]EMATOLOG[place] [address], [facility] [phone] * CT HEAD WO CONTRAST (10/13/2017 12:59 PM CDT) Anatomical Region Laterality Modality Head Computed Tomogra phy 10/13/2017 12:5 9 PM CDT Impressions 10/13/2017 1:08 PM CDT IMPRESSION: 1. No acute intracranial process with no significant change from previous examination. This report was electronically signed by MALACHI SUAREZ ??on 10/13/2017 1:08 PM . Narrative 10/13/2017 1:08 PM CDT EXAMINATION: Computed tomography (CT) of the head without contrast HISTORY: Clavicular pain. TECHNIQUE: CT of the head was performed without contrast according to standard protocol. FINDINGS: Comparison is made with a study from August 27, 2016. No acute intra- or extra-axial fluid collections are identified. There is mild cerebral and cerebellar volume loss with associated ex vacuo ventricular dilatation. The basilar cisterns are patent. No mass effect or midline shift is seen. The garber-white matter differentiation is normal. 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 Focal area of encephalomalacia in the right occipital lobe is unchanged. Periventricular white matter hypoattenuation is indicative of chronic small vessel ischemic disease. . There is vascular calcification of the carotid siphons. Other than mild paranasal sinus disease, the visualized portions of the orbits, paranasal sinuses, and mastoids appear normal. No acute fracture is identified. Old fracture of the left lamina papyracea is noted. A hypoattenuating cystic lesion in the left occipital scalp measuring 24 mm has mildly increased in size and likely represents a sebaceous cyst. Clinical evaluation is advised. Cerumen is seen in the right external auditory canal. Procedure Note Malachi Shields MD - 10/13/2017 EXAMINATION: Computed tomography (CT) of the head without contrast HISTORY: Clavicular pain. TECHNIQUE: CT of the head was performed without contrast according to standard protocol. FINDINGS: Comparison is made with a study from August 27, 2016. No acute intra- or extra-axial fluid collections are identified. Thereis mild cerebral and cerebellar volume loss with associated ex vacuo ventricular dilatation. The basilar cisterns are patent. No mass effector midline shift is seen. The garber-white matter differentiation is normal.A small lacunar infarct is again seen in the left thalamus. Focal area of encephalomalacia in the right occipital lobe is unchanged.Periventricular white matter hypoattenuation is indicative of chronic small vessel ischemic disease. . There is vascular calcification of the carotid siphons. Other than mild paranasal sinus disease, the visualizedportions of the orbits, paranasal sinuses, and mastoids appear normal. No acute fracture is identified. Old fracture of the left lamina papyracea is noted. A hypoattenuating cystic lesion in the left occipital scalp measuring 24 mm has mildly increased in size and likely represents a sebaceous cyst. Clinical evaluation is advised. Cerumen is seen in the right external auditory canal. IMPRESSION: 1. No acute intracranial process with no significant change from previous examination. This report was electronically signed by MALACHI SUAREZ on10/13/2017 1:08 PM . Power Epperson MD CT ORDERABLES * XR SHOULDER RIGHT 2VW OR MORE (10/13/2017 11:48 AM CDT) Anatomical Region Laterality Modality Upper Extremity Radiographic Cynthia ging 10/13/2017 11:5 2 AM CDT Impressions 10/13/2017 1:53 PM CDT IMPRESSION: Distal right clavicle fracture with mild inferior displacement of the distal fragment. Dictated by Riky Perez MD (radiology practitioner assistant). I, Dr. MADHURI FRANCO M.D. have [...] distal fragment. Dictated by Riky Perez MD (radiology practitioner assistant). Dr. MADHURI Thomason M.D. have personally reviewed and interpreted this examination/study. This report was electronically signed by MADHURI FRANCO M.D. on 10/13/2017 1:53 PM . Power Epperson MD DIAGNOSTIC IMAGING O RDERABLES * XR CHEST 1VW (10/13/2017 11:00 AM CDT) Anatomical Region Laterality Modality Chest Radiographic Cynthia ging 10/13/2017 1:04 PM CDT Impressions 10/13/2017 1:51 PM CDT FINDINGS/IMPRESSION: There is no focal consolidation, pleural effusion, or pneumothorax. The cardiomediastinal silhouette is normal. A right clavicle fracture is partially imaged. Dictated by Riky Perez MD (radiology practitioner assistant). Dr. MADHURI Thomason M.D. have personally [...] partially imaged. Dictated by Riky Perez MD (radiology practitioner assistant). I, Dr. MADHURI FRANCO M.D. have personally reviewed and interpreted this examination/study. This report was electronically signed by MADHURI FRANCO M.D. on 10/13/2017 1:51 PM . Power Epperson MD DIAGNOSTIC IMAGING O RDERABLES * HEPATITIS C AB SCREEN RFLX PCR QUANT (10/13/2017 10:20 AM CDT) Hepatitis C Antibody Non-react phan Non-reac tive 10/13/2017 11:28 AM CDT [facility] Comment: Hepatitis C Antibody screen indicates no serologic evidence of past or current infection with Hepatitis C Virus. Patients with unexplained liver disease who are immunocompromised or suspected of having acute Hepatitis C infection may benefit from Nucleic Acid Test (BASILIO) for Hepatitis C Viral RNA to confirm Hepatitis C status. Blood BLOOD SPECIMEN / Unknown Venipuncture / Unknown 10/13/2017 10:20 AM CDT 10/13/2017 10:33 AM CDT Nadir Ferrell MD LAB - CHEMISTRY [facility] Performing Organization Address City/State/[facility] Co de Phone Number [address] [phone] * HIV-1 HIV-2 ANTIGEN/ANTIBODY (10/13/2017 10:20 AM CDT) HIV Antigen/Antibod y 1 & 2 Non-reacti ve Non-react phan 10/13/2017 11:25 AM CDT [facility] Comment: Neither HIV-1 p24 Antigen nor HIV-1/HIV-2 Antibodies are detected. ? Blood BLOOD SPECIMEN / Unknown Venipuncture / Unknown 10/13/2017 10:20 AM CDT 10/13/2017 10:33 AM CDT Nadir Ferrell MD LAB - HEMATOLOGY ORD ERABLES [facility] [address] [place] [address], [facility] [phone] documented in this encounter Visit Diagnoses Diagnosis Clavicle pain Pain in joint, shoulder region Seizure (HCC) Other convulsions Closed nondisplaced fracture of acromial end of right clavicle, initial encounter Patient's other noncompliance with medication regimen Exposure to other specified factors, initial encounter Seizure (HCC) Other convulsions documented in this encounter Administered Medications Inactive Administered Medications - up to 3 most recent administrations Medication Order MAR Action Action Date Dose Rate Site amLODIPine (NORVASC) tablet 5 mg 5 mg, Oral, DAILY, 365 doses, First dose on Tue10/13/17 at 1915, Last dose on Tue10/12/18 at 0900 $ Given 10/15/2017 8:35 AM CDT 5 mg $ Given 10/14/2017 9:30 AM CDT 5 mg aspirin (ASPIRIN) chew tablet 81 mg 81 mg, Oral, DAILY, 365 doses, First dose on Tue10/13/17 at 1915, Last dose on Tue10/12/18 at 0900 $ Given 10/15/2017 8:35 AM CDT 81 mg $ Given 10/14/2017 9:30 AM CDT 81 mg cyanocobalamin (VITAMIN B-12) tablet 1,000 mcg 1,000 mcg, Oral, DAILY, First dose on Tue10/13/17 at 1915, Until Discontinued $ Given 10/15/2017 8:35 AM C DT 1,000 mcg $ Given 10/14/2017 9:30 AM CDT 1,000 mcg divalproex sprinkle (DEPAKOTE SPRINKLE) capsule 500 mg 500 mg, Oral, 2 TIMES DAILY, 730 doses, First dose on Tue10/15/17 at 0900, Last dose on Tue10/14/18 at 2100, Do not crush or chew sprinkle beads. $ Given 10/15/2017 8:34 AM CDT 500 mg $ Given 10/14/2017 8:25 PM CDT 500 mg enoxaparin (LOVENOX) injection 40 mg 40 mg, Subcutaneous, DAILY AT 0900, 365 doses, First dose on Tue10/14/17 at 0900, Last dose on Tue10/13/18 at 0900, (for prefilled syringes) do not expel air bubble from the syringe prior to the injection Remind Patient to not rub injection site. Could cause hematoma. $ Given 10/15/2017 8:34 AM CDT 40 mg Ab dominal Tissue folic acid (FOLVITE) tablet 1 mg 1 mg, Oral, DAILY, 365 doses, First dose on Tue10/13/17 at 1915, Last dose on Tue10/12/18 at 0900 $ Given 10/15/2017 8:35 AM CDT 1 mg $ Given 10/14/2017 9:30 AM CDT 1 mg gabapentin (NEURONTIN) capsule 300 mg 300 mg, Oral, 3 TIMES DAILY, 1095 doses, First dose on Tue10/13/17 at 2100, Last dose on Tue10/13/18 at 1400 $ Given 10/15/2017 8:35 AM CDT 300 mg $ Given 10/14/2017 8:25 PM CDT 300 mg $ Given 10/14/2017 1:20 PM CDT 300 mg ibuprofen (MOTRIN) tablet 400 mg 400 mg, Oral, ONCE, 1 dose, On Tue10/14/17 at 0530, Maximum allowable amount = 3200 mg / 24 hours. $ Given 10/14/2017 5:42 AM CDT 400 mg ibuprofen (MOTRIN) tablet 600 mg 600 mg, Oral, NOW, 1 dose, On Tue10/13/17 at 0945, Maximum allowable amount = 3200 mg / 24 hours. $ Given 10/13/2017 10:20 AM CDT 600 mg levETIRAcetam (KEPPRA) tablet 1,500 mg 1,500 mg, Oral, 2 TIMES DAILY, 730 doses, First dose on Tue10/13/17 at 2100, Last dose on Tue10/13/18 at 0900, Do not crush or chew because of TASTE only. $ Given 10/15/2017 8:34 AM CDT 1,500 mg $ Given 10/14/2017 8:25 PM CDT 1,500 mg $ Given 10/14/2017 9:29 AM CDT 1,500 mg levETIRAcetam (KEPPRA) tablet 2,000 mg 2,000 mg, Oral, NOW, 1 dose, On Tue10/13/17 at 0945, Do not crush or chew because of TASTE only. $ Given 10/13/2017 10:21 AM CDT 2,000 mg thiamine (VITAMIN B-1) tablet 100 mg 100 mg, Oral, DAILY, 365 doses, First dose on Marian 10/13/17 at 1915, Last dose on Marian 10/12/18 at 0900 $ Given 10/15/2017 8:35 AM CDT 100 mg $ Given 10/14/2017 9:29 AM CDT 100 mg traMADol (ULTRAM) tablet 50 mg 50 mg, Oral, EVERY 4 HOURS PRN, Mild Pain, Pain, Starting on Tue10/14/17 at 1645, Until 10/15/17 at 1724, Patient has fracture clavicle R side $ Given 10/15/2017 8:35 AM CDT 50 mg $ Given 10/14/2017 11:23 PM CDT 50 mg $ Given 10/14/2017 5:13 PM CDT 50 mg valproate (DEPACON) 1,000 mg in 0.9% NaCl 60 mL IVPB 1,000 mg, at 120 mL/hr, Intravenous, ONCE, 1 dose, On Tue10/14/17 at 1000 $ New Bag/Syringe 10/14/2017 1:20 PM CDT 1,000 mg 120 mL/hr documented in this encounter Active and Recently Administered Medications Times are shown in CDT. Scheduled Medication Order 10/13/2017 10/14/2017 10/15/2017 amLODIPine (NORVASC) tablet 5 mg 5 mg, Oral, DAILY, 365 doses, First dose on Marian 10/13/17 at 1915, Last dose on Marian 10/12/18 at 0900 2006 (Not Administered - Provider: Angelita Jarrett RN - Reason: Taken prior to admission) 0930 ($ Given - Provider: Delilah Isaacs RN) 0835 ($ Given - Provider: Angelina Lawrence, ALFRED) aspirin (ASPIRIN) chew tablet 81 mg 81 mg, Oral, DAILY, 365 doses, First dose on Marian 10/13/17 at 1915, Last dose on Marian 10/12/18 at 0900 2007 (Not Administered - Provider: Angelita Jarrett RN - Reason: Taken prior to admission) 0930 ($ Given - Provider: Delilah Isaacs RN) 0835 ($ Given - Provider: Angelina Lawrence RN) atorvastatin (LIPITOR) tablet 40 mg 40 mg, Oral, DAILY, 365 doses, First dose on Marian 10/13/17 at 1915, Last dose on Marian 10/12/18 at 0900 2006 (Not Administered - Provider: Angelita Jarrett RN - Reason: Taken prior to admission) 928 (Not Administered - Provider: Delilah Isaacs RN - Reason: Refused-Patient - Comment: says he doesn't take it anymore) 0835 (Not Administered - Provider: Angelina Lawrence RN - Reason: Refused-Patient) cyanocobalamin (VITAMIN B-12) tablet 1,000 mcg 1,000 mcg, Oral, DAILY, First dose on Marian 10/13/17 at 1915, Until Discontinued 2007 (Not Administered - Provider: Angelita Jarrett RN - Reason: Taken prior to admission) 929 ($ Given - Provider: Delilah Isaacs RN) 0835 ($ Given - Provider: Angelina Lawrence RN) divalproex sprinkle (DEPAKOTE SPRINKLE) capsule 500 mg 500 mg, Oral, 2 TIMES DAILY, 730 doses, First dose on 10/15/17 at 0900, Last dose on 10/14/18 at 2100, Do not crush or chew sprinkle beads. 2024 ($ Given - Provider: Ajit Vargas RN) 0834 ($ Given - Provider: Angelina Lawrence, ALFERD) enoxaparin (LOVENOX) injection 40 mg 40 mg, Subcutaneous, DAILY AT 0900, 365 doses, First dose on Tue10/14/17 at 0900, Last dose on Tue10/13/18 at 0900, (for prefilled syringes) do not expel air bubble from the syringe prior to the injection Remind Patient to not rub injection site. Could cause hematoma. 933 (Not Administered - Provider: Delilah Isaacs RN - Reason: Refused-Patient) 0834 ($ Given - Provider: Angelina Lawrence RN) folic acid (FOLVITE) tablet 1 mg 1 mg, Oral, DAILY, 365 doses, First dose on Marian 10/13/17 at 1915, Last dose on Marian 10/12/18 at 0900 2007 (Not Administered - Provider: Angelita Jarrett RN - Reason: Taken prior to admission) 0930 ($ Given - Provider: Delilah Isaacs RN) 0835 ($ Given - Provider: Angelina Lawrence RN) gabapentin (NEURONTIN) capsule 300 mg 300 mg, Oral, 3 TIMES DAILY, 1095 doses, First dose on Marian 10/13/17 at 2100, Last dose on Tue10/13/18 at 1400 2007 ($ Given - Provider: Cony Estrella LPN) 0930 ($ Given - Provider: Delilah Isaacs RN)1320 ($ Given - Provider: Delilah Isaacs RN)2024 ($ Given - Provider: Ajit Vargas RN) 0835 ($ Given - Provider: Angelina Lawrence RN)1400 (Not Administered - Provider: Angelina Lawrence RN - Reason: See Comments - Comment: pt discharged) ibuprofen (MOTRIN) tablet 400 mg (COMPLETED) 400 mg, Oral, ONCE, 1 dose, On Tue10/14/17 at 0530, Maximum allowable amount = 3200 mg / 24 hours. 0542 ($ Given - Provider: Cony Estrella LPN) ibuprofen (MOTRIN) tablet 600 mg (COMPLETED) 600 mg, Oral, NOW, 1 dose, On Marian 10/13/17 at 0945, Maximum allowable amount = 3200 mg / 24 hours. 1020 ($ Given - Provider: Elmo Tena RN) levETIRAcetam (KEPPRA) tablet 1,500 mg 1,500 mg, Oral, 2 TIMES DAILY, 730 doses, First dose on Marian 10/13/17 at 2100, Last dose on Tue10/13/18 at 0900, Do not crush or chew because of TASTE only. 2006 ($ Given - Provider: Cony Estrella LPN) 0929 ($ Given - Provider: Delilah Isaacs RN)2024 ($ Given - Provider: Ajit Vargas RN) 0834 ($ Given - Provider: Angelina Lawrence RN) levETIRAcetam (KEPPRA) tablet 2,000 mg (COMPLETED) 2,000 mg, Oral, NOW, 1 dose, On Marian 10/13/17 at 0945, Do not crush or chew because of TASTE only. 1009 (Held - Provider: Elmo Tena, RN - Reason: Patient Condition - Comment: Patient supplied med, ERP aware.)1021 ($ Given - Provider: Elmo Tena RN) thiamine (VITAMIN B-1) tablet 100 mg 100 mg, Oral, DAILY, 365 doses, First dose on Marian 10/13/17 at 1915, Last dose on Marian 10/12/18 at 0900 2006 (Not Administered - Provider: Angelita Jarrett RN - Reason: Taken prior to admission) 0929 ($ Given - Provider: Delilah Isaacs RN) 0835 ($ Given - Provider: Angelina Lawrence, ALFRED) valproate (DEPACON) 1,000 mg in 0.9% NaCl 60 mL IVPB (COMPLETED) 1,000 mg, at 120 mL/hr, Intravenous, ONCE, 1 dose, On Tue10/14/17 at 1000 1320 ($ New Bag/Syringe - Provider: Delilah Isaacs RN)1350 (Stopped - Provider: Delilah Isaacs RN) PRN Medication Order 10/13/2017 10/14/2017 10/15/2017 traMADol (ULTRAM) tablet 50 mg 50 mg, Oral, EVERY 4 HOURS PRN, Mild Pain, Pain, Starting on Tue10/14/17 at 1645, Until 10/15/17 at 1724, Patient has fracture clavicle R side 1713 ($ Given - Provider: Delilah Isaacs RN)2323 ($ Given - Provider: Ajit Vargas RN) 0835 ($ Given - Provider: Angelina Lawrence, ALFRED) documented in this encounter Care Teams Biometric Fingerprinting Technician Relationship Specialty Start Date End Date Misael Maradiaga DO PCP - General 10/03/17 09/15/20 Elizabeth Sullivan, ALFRED Catering Cook 10/14/17 documented as of this encounter
--- OUTSIDE RECORDS SUMMARY | 2024-06-08 05:44 | XMS_ITS | Encounter Summary ---
Author Organization [facility] Health Address [address] [place] [address] Care Team Providers Care Supervisor [employer] Name Role Phone Misael Maradiaga DO Primary Care Provider Elizabeth Sullivan RN Unavailable [phone] Reason for Visit * Reason Comments Seizure Pt reports seizure h x and having 2 seizure @ home before callng EMS. Pt is having episodes of rigidity and staring ot the left followed by AOx3 clarity. Encounter Details Date Type Department Care Team (Late st Contact Info) Description 11/28/2017 1:23 AM CDT - 11/28/2017 8:02 AM T Emergency [facility] EMERGENCY DEPARTMENT [address] [place] [address] Nadir Ferrell MD [address] [facility] [place] [id number] Shane Fajardo MD [address] [place] [address] Seizure (HCC) Discharge Disposition: Home or Self [...] Sign Reading Time Taken Comments Blood Pressure 143/90 11/28/2017 7:00 AM CDT Pulse 71 11/28/2017 7:00 AM CDT Temperature - - Respiratory Rate 14 11/28/2017 6:00 AM CDT Oxygen Saturation 97% 11/28/2017 7:00 AM CDT Inhaled Oxygen Concentration - - Weight 62.6 kg (138 lb) 11/28/2017 1:32 AM CDT Height 180.3 cm (5' 11 ) 11/28/2017 1:32 AM CDT Body Mass Index 19.25 11/28/2017 1:32 AM CDT documented in this encounter Functional [...] Discharge Instructions* Luis Antonio Whitlock MD - 11/28/2017 6:57 AM CDT Images from the original note [...] ask them during your visits. ?? 2017 [employer] ([employer]) Information is for End User's use only and may not be sold, redistributed or otherwise used for commercial purposes. All illustrations and images included in CareNotes?? are the copyrighted property of [employer] Inc. or [employer]. The above information is an upstairs maid only. It is not intended as medical [...] 01/09/2018 levETIRAcetam (KEPPRA) 500 MG tablet Take 4 tablets by mouth 2 times daily 180 tablet 1 11/28/2017 01/09/2018 thiamine (VITAMIN B-1) 100 MG tablet Take 100 mg by mouth once daily 0 09/19/2017 01/09/2018 traMADol (ULTRAM) 50 MG tablet Take 1 tablet by mouth every 4 hours as needed 10 tablet 10/15/2017 01/09/2018 documented as of this encounter Consult Notes * Josiane Escobedo MD - 11/28/2017 5:47 AM CDTAssociated Order(s): IP CONSULT TO NEUROLOGY Neurology Initial Consult Note Date of Encounter: 11/28/2017 Reason For Consult: Seizure HPI: Patient is a 57 year old male with history of seizures since the age of 50 years 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 He lives by himself, says he woke up on the ground and had bladder incontinence. Called EMS and was brought to [facility]. Alcohol level was undetectable. All other labs were wnl. Patient follows with Dr. Feliciano outpatient and had been seizure free for over a year and had breakthrough event in 05/2017. Dose of Keppra increased to 1500 mg BID. In 09/2017 patient presented to [facility] for medication clarification as recently he had his dose inreased to 2000 mg BID after being seen at Health system due to breakthrough seizure in August 2017. While in the [facility] ED he was witnessed to have multiple seizure episodes- described as staring straight, grabbing the bed rails and drooling. These lasted between 20 and 45 seconds, without any post-ictal state. He was loaded with Depakote 15mg/kg x1, but continued to have a few more episodes so neurology was consulted. He was discharged on Depakote 500 mg BID and Keppra 1500 mg BID. He was again seen in ED on 11/22 after a minor seizure. Was given one dose of Keppra 1500 mg, one-time. He was discharged on Depakote 500 mg BID and Keppra 1500 mg BID. Chief Complaint: Seizures Gait difficulty ?? AGE OF ONSET 50-year-old ?? SEMIOLOGY - Aura Tingling sensation over the right side - Ictus Convulsions, tongue bites - Post-ictus Confusion ?? SEIZURE CONTROL Seizure frequency Initially frequent, then 1 event in 1 year Seizure free interval 1 month Date of last seizure May 2017 Action Plan - ?? MEDICATION Name Dosage Frequency AED Level Start Levetiractam 1500 mg BID (Increased after 05/2017 event) ?? COMPLIANCE Good ?? TREATMENT HISTORY Name Allergy/Side Effects/Ineffectiveness Phenytoin ?? EE07/2015 Normal awake and drowsy EEG 09/2017: Normal awake EEG due to right temporal focal slowing, suggestive of underline structure or functional abnormality ?? IMAGIN07/2016 Focal area of encephalomalacia in the right occipital lobe ?? CLASSIFICATION: Partial onset epilepsy ROS: Negative except for HPI Allergies: No Known Allergies Home Medications: No current facility-administered medications for this encounter. Current Outpatient Prescriptions: divalproex sprinkle (DEPAKOTE SPRINKLE) 125 MG capsule Take 4 capsules by mouth 2 times daily levETIRAcetam (KEPPRA) 750 MG tablet Take 2 tablets by mouth 2 times daily traMADol (ULTRAM) 50 MG tablet Take 1 tablet by mouth every 4 hours as needed aspirin (ASPIRIN) 81 MG chew tablet Take 81 mg by mouth once daily atorvastatin (LIPITOR) 40 MG tablet Take 40 mg by mouth once daily Cyanocobalamin (B-12) 1000 MCG Take 1 mg by mouth once daily folic acid (FOLVITE) 1 MG tablet Take 1 mg by mouth once daily gabapentin (NEURONTIN) 300 MG capsule Take 300 mg by mouth 3 times daily amLODIPine (NORVASC) 5 MG tablet Take 5 mg by mouth once daily thiamine (VITAMIN B-1) 100 MG tablet Take 100 mg by mouth once daily levETIRAcetam (KEPPRA) 500 MG tablet Take 1,500 mg by mouth 2 times daily PMH: Past Medical History: No date: [...] Smokeless tobacco: Never Used Alcohol use No Drug use: No Sexual activity: Not on file Other Topics Concern None on file Social History Narrative Physical Exam: Vitals: 11/28/17 11/28/17 11/28/17 11/28/17 0200 0300 0400 0500 BP: 126/77 134/82 132/78 127/73 Pulse: 101 88 78 67 Resp: 18 13 18 15 SpO2: 99% 99% 100% 100% Weight: General: HEENT: Head normocephalic and atraumatic, mucous membranes moist, oropharynx clear of exudate or significant inflammation Heart: Regular rate and rhythm without murmur Exam: General appearance: alert, well appearing, and in no distress. Cortical Function: MS: Awake, Alert, Follows Commands Oriented to Person, Place and Time Language: Fluent, Coherent, Repetition Intact VF Intact to confrontation test Neglect No visual neglect, No tactile neglect Cranial Nerves: Pupils 3 to 4 mm BRTL, Full EOM, No ptosis or nystagmus Facial sensation intact bilaterally to LT; No facial palsy Palate symmetric; Normal tongue protrusion Motor: Abnormal Movements: None Bulk: Normal Tone: Normal Strength: Appropriate for Age RUE 5 RLE 5 LUE / LLE 10/01 DTR: Bi Tri BR Pat Ach Toes R 3 3 3 3+ 2 Down L 3 3 3 3+ 2 Down Sensory: Intact to light touch throughout Cerebellar: FNF intact bilaterally Gait: Deferred Labs: CBC: Recent Labs Component Name 11/28/17 0454 10/15/17 0206 10/14/17 0424 WBC 5.8 7.7 8.9 HGB 14.2 14.2 14.5 PLT 170 186 193 BMP: Recent Labs Component Name 11/28/17 0455 10/15/17 0206 10/14/17 0424 NA 146* 138 139 CL 108* 104 104 CO2 21* 27 25 BUN 16 14 11 CREATININE 1.0 0.8 0.8 GLU 74 90 94 Recent Labs Component Name 11/28/17 0455 10/15/17 0206 10/14/17 0424 CALCIUM 9.4 8.8 9.2 PHOS 1.6* 2.9 3.3 LFT: Recent Labs Component Name 11/28/17 0455 10/14/17 1349 10/13/17 1526 PROT 6.8 7.0 8.4* ALB 3.7 3.9 4.8 ALKPHOS 94 86 88 AST 18 18 23 ALT 10 9 11 Coagulation: No results for input(s): PT, INR, APTT in the last 32118 hours. Cardiac markers: No results for input(s): CKMB, TROPONINI, MYOGLOBIN in the last 39776 hours. EEG 10/15/2017: IMPRESSION This is an normal awake EEG due to right temporal focal slowing, suggestive of underline structure or functional abnormality. There was no epileptiform discharges were observed. Assessment and Plan: Bi Tabor is a 57 year old male with history of seizures and chronic alcohol use who presented with breakthrough seizures. Most likely these seizures were due to inadequate medication dosage. Patient was supposed to be on Keppra 1500 mg BID but was only taking Keppra 1000 mg BID. Currently, patient is back to his baseline mental status. - Recommend increasing Keppra to 2000 mg BID - Follow-up with Dr. Feliciano in Clinic on 01/09/2018 at 2 pm. - Seizure precautions discussed with patient (no driving for 6 months, no swimming unattended, no working with heavy machinery) - Thank you for this interesting consult. Neurology will sign-off. Patient case findings discussed with Dr. Feliciano, Neurology Attending. Josiane Escobedo MD Neurology Resident documented in this encounter ED Notes * Luis Antonio Whitlock MD - 11/28/2017 8:02 AM CDT [facility] Emergency Department Resident History and Physcial 11/28/2017 HPI obtained from patient Chief Complaint: Seizure (Pt reports seizure hx and having 2 seizure @ home before callng EMS. Pt is having episodesof rigidity and staring ot the left followed by AOx3 clarity.) HPI: Bi Tabor Jr. is a 57 y.o. male with hx of CVA and seizures, presents to [facility] ED after having a seizure about thirty mins prior to arrival. States that he started feeling light headed, dizzy, and then woke up on the floor. States that is typically what will happen when he has a seizure. Denies bowel/bladder incontinence, or tongue biting. States that he started having seizures about 6 months ago, when he stopped drinking alcohol. Has not had a drink of alcohol in 6 months, states this is because his girlfriend from liver cirrhosis so he stopped drinking and using drugs. Pt takes Keppra 1000mg BID. Reports compliance with medications. Pt states that he has two neurologists, one here and one at [facility]. Interpretor used: none Past Medical History: Diagnosis Date ??? CVA (cerebral vascular accident) ??? HTN (hypertension) ??? Seizure No past surgical history on file. No family history on file. Social History Substance Use Topics ??? Smoking status: Current Every Day Smoker Packs/day: 0.25 Years: 15.00 ??? Smokeless tobacco: Never Used ??? Alcohol use No Review of Symptoms: Review of Systems Constitutional: Negative for chills and fever. HENT: Negative for rhinorrhea and sore throat. Eyes: Negative for visual disturbance. Respiratory: Negative for cough and shortness of breath. Cardiovascular: Negative for chest pain. Gastrointestinal: Negative for abdominal pain, diarrhea, nausea and vomiting. Genitourinary: Negative for difficulty urinating and dysuria. Skin: Negative for rash. Neurological: Positive for seizures. Negative for weakness. Psychiatric/Behavioral: Negative for suicidal ideas. Physical Exam: BP 143/90 Pulse 71 Resp 14 Ht 1.803 m (5' 11 ) Wt 62.6 kg (138 lb) SpO2 97% BMI 19.25 kg/m2 Physical Exam Constitutional: He is oriented to person, place, and time and well-developed, well-nourished, and in no distress. HENT: Head: Normocephalic. Mouth/Throat: Oropharynx is clear and moist. Small hematoma over right eyebrow. Pt states from previous seizure Eyes: EOM are normal. Pupils are equal, round, and reactive to light. Neck: Normal range of motion. Neck supple. Cardiovascular: Normal rate. Exam reveals no gallop and no friction rub. No murmur heard. Pulmonary/Chest: Effort normal and breath sounds normal. He has no wheezes. Abdominal: Soft. Bowel sounds are normal. There is no tenderness. Musculoskeletal: Normal range of motion. He exhibits no tenderness. Neurological: He is alert and oriented to person, place, and time. No cranial nerve deficit. GCS score is 15. Skin: Skin is warm and dry. No rash noted. ED Labs Labs Reviewed COMPREHENSIVE METABOLIC PANEL - Abnormal; Notable for the following: Result Value Sodium 146 (*) Chloride 108 (*) CO2 21 (*) Anion Gap 21 (*) Calculated Osmolality 302 (*) All other components within normal limits CBC W AUTO DIFFERENTIAL - Abnormal; Notable for the following: MPV 12.9 (*) All other components within normal limits PHOSPHORUS BLOOD - Abnormal; Notable for the following: Phosphorus 1.6 (*) All other components within normal limits MAGNESIUM BLOOD - Normal ALCOHOL ETHYL BLOOD LEVETIRACETAM LEVEL ED Imaging: No orders to display ED Meds: Medications 0.9% NaCl IV Bolus (0 mL Intravenous Stopped 11/28/17 0601) Medical Decision Making Clinical Diagnosis: recurrent seizure Differential Diagnosis: med noncompliance, medical illiteracy, electrolyte derangement Plan: 1. Workup: electrolytes, keppra level, cbc, etoh 2. Treatment: IVF Consults: Discussed pertinent aspects of the case with neurology, who will evaluate patient ED Course: Patient seen and evaluated, available studies reviewed Electrolytes within normal limits. Neurology has seen patient and recommend increasing keppra to 2g BID instead of 1g. Pt has outpatient follow up with neurology at [facility] next month. Neurology recommends following up with them as previously scheduled. Ok for discharge. Pt agreeable to plan. Counselled patient to see only one neurologist so to get an accurate treatment plan that does not vary from doctor to doctor. -I have reviewed the diagnostic findings with the patient and they have had an opportunity to ask me any questions they have about care, diagnosis and discharge plan. The patient is comfortable with the discharge plan. Theywill follow up as directed and will return to the ER if their condition worsens or if they develop other urgent concerns. ED Final Diagnosis and Discharge information 1. Seizure Disposition Discharge Scripts Take Keppra 2000mg BID Follow-up Follow-up Information Follow up with [facility]- Neurology- 312. Go on 01/09/2018. Why: For follow up of seizures. Contact information: [address] [facility] [address] Luis Antonio Whitlock MD 11/28/2017 9:26 AM * Bea Larios RN - 11/28/2017 7:35 AM CDT Discharge instructions explained to pt. Pt verbalized understanding and has no further questions. VSS. Respirations even and unlabored. Pt given Discharged with dignity clothing and bag for belongings. Pt usually has walker but it did not come with him in the ambulance. Pt wheeled to waiting room to wait for his brother. * Shane Fajardo MD - 11/28/2017 6:33 AM CDT ASSUMED CARE NOTE Patient signed out to me by Dr. Ferrell at 6:33 AM. Briefly, Bi Tabor Jr. is a 57 y.o. male is being evaluated for seizure. Patient presents after two seizures. States he felt them coming on as he gets an aura. Did not urinate on himself, defecate on himself, or bite his tongue. Lips are blue due to patient eating a jolly rancher. Was seen last week for the same issues. History of alcohol withdrawal with last occurrence two years ago. Manages condition with Keppra and phenytoin. At last presentation, neurology recommended follow-up with neurologist, which patient has not been able to do. At this time the patient's condition is Stable. Thus far, studies reveal labs benign. Sodium elevated, bicarbonate 21, anion gap elevated. Left thinking he was to take 15 mg Keppra twice daily and Chivo told him 1 g ,so there may be a medication dosing error. Pending studies include neurology recommendations. Plan is discharge home to self-care. Clinical Impression: 1. Seizure Disposition: Discharge home to self-care. 1:48 PM: I have reviewed his diagnostic findings and he has had an opportunity to ask me any questions he has about care, diagnosis and discharge plan. Patient is comfortable with the discharge plan.He will follow up as directed and will return to the ER if his condition worsens or he develops other urgent concerns. By signing my name below, I, Verenice Cordero, attest that this documentation has been prepared under the direction and in the presence of Dr. Fajardo. Signed: Laisha Ruth. Date: 11/29/2017. Time:6:33 AM. * Nadir Ferrell MD - 11/28/2017 5:15 AM CDT Resident Attestation: I have performed an independent history and physical examination and discussed the patient's management with the resident. I agree with the findings, assessment and plan of care by the resident. My history and physical is noted below. Chief complaint: Chief Complaint Patient presents with ??? Seizure Pt reports seizure hx and having 2 seizure @ home before callng EMS. Pt is having episodes of rigidity and staring ot the left followed by AOx3 clarity. HPI: Bi Tabor Jr. is a 57 y.o. male who presents to the ER for seizure. Patient states that he has a history of CVA and alcohol abuse last drank several years ago. Patient states that he had 2 seizures tonight felt that coming on positive aura. Was at home and activated his caller [employer]. No chest pain no shortness of breath no nausea no vomiting no pain in his chest no pain in his arms no pain inhis legs no weakness in it or numbness in his arms or legs. Patient has been taking his Keppra states that he is not been getting any better. Did not urinate on self did not bite his tongue Past Medical History: Diagnosis Date ??? CVA (cerebral vascular accident) ??? HTN (hypertension) ??? Seizure No past surgical history on file. Review of Systems GEN: no fevers EYES: no sudden changes in vision HEENT: no URI symptoms PULM: no shortness of breath, no cough CHEST: no chest pain, no palpitations GI: no abdominal pain, no nausea, no vomiting : no UTI symptoms, no hematuria MSK: no joint pain NEURO: Seizure ENDO: no heat/cold intolerance SKIN: no rashes Physical Exam: Vitals: 11/28/17 0200 11/28/17 0300 11/28/17 0400 11/28/17 0500 BP: 126/77 134/82 132/78 127/73 Pulse: 101 88 78 67 Resp: 15 SpO2: 99% 99% 100% 100% Weight: General: Alert, no obvious distress Head: Contusion to his forehead old per patient Eyes: No acute lesions Mouth: Moist membranes Neck: No JVD, Supple Back: No CVA tenderness Heart: RRR, no murmur, rub or gallop Lung: No respiratory distress, Equal breath sounds, CTA bilaterally Abdomen: Soft, bowel sounds normal, nondistended, all quadrants palpated with no significant tenderness, No pulsatile mass Extremities: No cyanosis, no significant peripheral edema Pulses: Equal pulses x 4 Skin: No acute rash Lymph: No lymphadenopathy Neuro: Mental status: A/Ox3 CN: II, III, IV, - EOMi, PERRL V - Sensation intact on face bilaterally VII - Face symmetric VIII- Hearing grossly intact XI - Shrugs shoulders symmetric XII - Tongue midline Sensory: Sensation intact to sharp/dull differentiation in all extremities. Motor: Motor 5/5 upper and lower extremities . Medical Decision Making: Problem list: 1. Seizure DDx: Seizure, electrolyte abnormality, alcohol withdrawal. Plan of Care: Check electrolytes Neurology consult ED Course: Labs Reviewed COMPREHENSIVE METABOLIC PANEL - Abnormal; Notable for the following: Result Value Sodium 146 (*) Chloride 108 (*) CO2 21 (*) Anion Gap 21 (*) Calculated Osmolality 302 (*) All other components within normal limits CBC W AUTO DIFFERENTIAL - Abnormal; Notable for the following: MPV 12.9 (*) All other components within normal limits PHOSPHORUS BLOOD - Abnormal; Notable for the following: Phosphorus 1.6 (*) All other components within normal limits MAGNESIUM BLOOD - Normal ALCOHOL ETHYL BLOOD LEVETIRACETAM LEVEL No orders to display No results found. Signed out to Dr. Fajardo neurology consult pending Final Clinical Impression: 1. Seizure Consult Yes Procedure done at this time No Ultrasound done at this time No Critical Care: 0 Please see resident note for further details. Nadir Ferrell MD 11/28/2017 5:15 AM * Luisa Grace RN - 11/28/2017 4:17 AM CDT Seizure pads ordered. * Luisa Grace RN - 11/28/2017 4:[address] Ferrell in with pt. * Luisa Grace RN - 11/28/2017 4:09 AM CDT Pt remains sleeping at this time. Respirations are unlabored. Pt appears to be in NAD. Will continue to monitor. * Luisa Grace RN - 11/28/2017 3:05 AM CDT Pt resting comfortably. Comfort measures completed, pt denies needing anything at this time. Pt respirations are clear and unlabored. VSS. * Herb Black RN - 11/28/2017 1:23 AM CDT Bed: 11 Expected date: Expected time: Means of arrival: Comments: [id number]- seizures documented in this encounter Plan of Treatment Upcoming Encounters Date Type Department Care Team (Late st Contact Info) Description 12/05/2024 1:00 PM CDT Office Visit [facility] - Neurology [address] [place] [phone] Sean Raymundo DO [address] [place] [phone] documented as of this encounter Procedures Procedure Name Priority Date/Time Associated Diagnosis Comments LEVETIRACETAM LEVEL STAT 11/28/2017 6 :35 AM CDT COMPREHENSIVE METABOLIC PANEL STAT 11/28/2017 4:55 AM CDT PHOSPHORUS BLOOD STAT 11/28/2017 4:55 AM CDT MAGNESIUM BLOOD STAT 11/28/2017 4:55 AM CDT ALCOHOL ETHYL BLOOD STAT 11/28/2017 4 :55 AM CDT CBC W AUTO DIFFERENTIAL STAT 11/28/2017 4:54 AM CDT documented in this encounter Results * (ABNORMAL) LEVETIRACETAM LEVEL (11/28/2017 6:35 AM CDT) [facility] Levetiracetam 54.9(H) 10.0 - 40.0 ug/mL 11/30/2017 7:16 AM CDT [facility] ([facility]) Blood BLOOD SPECIMEN / Unknown Venipuncture / Unknown 11/28/2017 6:35 AM CDT 11/28/2017 6:35 AM CDT Narrative [facility] ([facility]) - 11/30/2017 7:16 AM CDT Performed at: ??01 - [facility] ??[id number] Sheep Clipper: Vito Hay MD, Phone: ??[phone] Luis Antonio Whitlock MD LAB - THERAPEUTIC DRUG MONITORING ORDERABLES Performing Organization Address City/[facility]/ZIP Co de Phone Number [facility] ([facility]) [address] [id number] * ALCOHOL ETHYL BLOOD (11/28/2017 4:55 AM CDT) [facility] Interpretation Ethanol None Detected None Detected mg/dL 11/28/2017 5:24 AM CDT [facility] Comment: Ethanol levels less than 10 mg/dL are resulted as None detected . Blood BLOOD SPECIMEN / Unknown Venipuncture / Unknown 11/28/2017 4:55 AM CDT 11/28/2017 4:59 AM CDT Luis Antonio Whitlock MD LAB - CHEMISTRY OR DERABLES [address] [phone] * (ABNORMAL) PHOSPHORUS BLOOD (11/28/2017 4:55 AM CDT) Pathologist [facility] Phosphorus 1.6(L) 2.3 - 4.7 mg/dL 11/28/2017 5:24 AM CDT [facility] Blood BLOOD SPECIMEN / Unknown Venipuncture / Unknown 11/28/2017 4:55 AM CDT 11/28/2017 4:59 AM CDT Luis Antonio Whitlock MD LAB - CHEMISTRY OR DERABLES [address] [phone] * MAGNESIUM BLOOD (11/28/2017 4:55 AM CDT) Pathologist [facility] Magnesium 2.1 1.6 - 2.6 mg/dL 11/28/2017 5:24 AM [facility] Blood BLOOD SPECIMEN / Unknown Venipuncture / Unknown 11/28/2017 4:55 AM CDT 11/28/2017 4:59 AM CDT Luis Antonio Whitlock MD LAB - CHEMISTRY OR DERABLES Performing Organization Address City/[facility]/ZIP Co de Phone Number [address] [phone] * (ABNORMAL) COMPREHENSIVE METABOLIC PANEL (11/28/2017 4:55 AM CDT) Pathologist [facility] BUN 16 7 - 26 mg/dL 11/28/2017 5:24 AM [facility] Creatinine 1.0 0.6 - 1.2 mg/dL 11/28/2017 5:24 AM [facility] Sodium 146(H) 136 - 145 mmol/L 11/28/2017 5:24 AM [facility] Potassium 3.8 3.5 - 4.5 mmol/L 11/28/2017 5:24 AM [facility] Chloride 108(H) 98 - 107 mmol/L 11/28/2017 5:24 AM [facility] CO2 21(L) 22 - 29 mmol/L 11/28/2017 5:24 AM [facility] Glucose 74 70 - 115 mg/dL 11/28/2017 5:24 AM [facility] Calcium 9.4 8.4 - 10.2 mg/dL 11/28/2017 5:24 AM [facility] Protein Total 6.8 6.0 - 8.3 g/dL 11/28/2017 5:24 AM [facility] Albumin 3.7 3.4 - 5.0 g/dL 11/28/2017 5:24 AM [facility] Bilirubin Total 0.3 0.2 - 1.2 mg/dL 11/28/2017 5:24 AM [facility] Alkaline Phosphatase 94 40 - 150 Units/L 11/28/2017 5:24 AM [facility] ALT 10 0 - 55 Units/L 11/28/2017 5:24 AM [facility] AST 18 5 - 34 Units/L 11/28/2017 5:24 AM [facility] Anion Gap 21(H) 8 - 18 11/28/2017 5:24 AM [facility] BUN/Creatinine Ratio 16 7 - 23 11/28/2017 5:24 AM [facility] Osmolality Calculated 302(H) 270 - 300 mOsm/kg 11/28/2017 5:24 AM [facility] Albumin/Globulin Ratio 1.2 1.1 - 2.3 11/28/2017 5:24 AM [facility] eGFR >60 >60 mL/min/1.7 3 m2 11/28/2017 5:24 AM [facility] Blood BLOOD SPECIMEN / Unknown Venipuncture / Unknown 11/28/2017 4:55 AM CDT 11/28/2017 4:59 AM T Luis Antonio Whitlock MD LAB - CHEMISTRY OR DERABLES Performing Organization Address [facility]/State/[facility] Co de Phone Number [address] [phone] * (ABNORMAL) CBC W AUTO DIFFERENTIAL (11/28/2017 4:54 AM CDT) WBC 5.8 3.5 - 10.5 10? 3 /uL 11/28/2017 5:04 AM [facility] RBC 4.44 4.30 - 5.70 10? 6 /uL 11/28/2017 5:04 AM [facility] Hemoglobin 14.2 13.5 - 17.5 g/dL 11/28/2017 5:04 AM [facility] Hematocrit 42.9 39.0 - 50.0 % 11/28/2017 5:04 AM [facility] MCV 96.6 81.0 - 97.0 fL 11/28/2017 5:04 AM [facility] MCH 32.0 28.0 - 34.0 pg 11/28/2017 5:04 AM [facility] MCHC 33.1 32.0 - 36.0 g/dL 11/28/2017 5:04 AM [facility] Platelet Count 170 150 - 400 10? 3 /uL 11/28/2017 5:04 AM [facility] RDW-SD 45.5 36.0 - 50.0 fL 11/28/2017 5:04 AM [facility] RDW-CV 12.9 11.2 - 14.8 % 11/28/2017 5:04 AM [facility] MPV 12.9(H) 9.3 - 12.8 fL 11/28/2017 5:04 AM [facility] Neutrophils % 47.2 35.0 - 70.0 % 11/28/2017 5:04 AM [facility] Lymphocytes % 41.1 19.7 - 55.1 % 11/28/2017 5:04 AM [facility] Monocytes % 9.1 3.0 - 15.0 % 11/28/2017 5:04 AM [facility] Eosinophils % 2.4 0.0 - 6.0 % 11/28/2017 5:04 AM [facility] Basophil % 0.2 0.0 - 1.5 % 11/28/2017 5:04 AM [facility] Neutrophils Absolute 2.8 1.6 - 7.0 10? 3 /uL 11/28/2017 5:04 AM [facility] Lymphocyte Absolute 2.4 0.8 - 2.9 10? 3 /uL 11/28/2017 5:04 AM [facility] Monocytes Absolute 0.53 0.14 - 0.66 10? 3 /uL 11/28/2017 5:04 AM [facility] Eosinophils Absolute 0.14 0.00 - 0.22 10? 3 /uL 11/28/2017 5:04 AM [facility] Basophils Absolute 0.01 0.00 - 0.06 10? 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 Scheduled Medication Order 11/26/2017 11/27/2017 11/28/2017 0.9% NaCl IV Bolus (COMPLETED) 1,000 mL, at 1,935.48 mL/hr, Administer over 31 Minutes, NOW, 1 dose, On Tue11/28/17 at 0445 0455 ($ New Bag/Syri nge - Provider: Luisa Grace RN)[id number] (Stopped - Provider: Luisa Grace RN) documented in this encounter Care Teams [employer] Relationship Specialty Start Date End Date Misael Maradiaga DO PCP - General 10/03/17 09/15/20 Elizabeth Sullivan, ALFRED [employer] 10/14/17 documented as of this encounter
--- OUTSIDE RECORDS SUMMARY | 2024-06-08 05:44 | XMS_ITS | Encounter Summary ---
Author Organization [facility] Address [address] [place] [address] Care Team Providers Care Video Rental Clerk Name Role Phone Misael Maradiaga DO Primary Care Provider Elizabeth Sullivan RN Unavailable [phone] Reason for Visit * Reason Comments Seizure Patient BIBEMS for c omplaints of seizure. Per EMS patient reports, having a seizure last night and this morning. Patient was ambulatory and alert and oriented on scene. Encounter Details Date Type Department Care Team (Late st Contact Info) Description 04/30/2018 9:50 AM LINE STAKER - 04/30/2018 5:41 PM [facility] Emergency [facility] [address] [place] [address] Eliane Tai MD [address] [facility] [place] [address] Serjio Vilchis MD [address] [facility] [place] [address] Seizure (HCC) Discharge Disposition: Home or Self [...] Sign Reading Time Taken Comments Blood Pressure 131/66 04/30/2018 5:20 PM LINE STAKER Pulse 65 04/30/2018 5:20 PM LINE STAKER Temperature 36.8 ??C (98.3 ??F) 04/30/2018 10:[address] Respiratory Rate 16 04/30/2018 5:20 PM LINE STAKER Oxygen Saturation 97% 04/30/2018 5:20 PM LINE STAKER Inhaled Oxygen Concentration - - Weight 68 kg (150 lb) 04/30/2018 10:16 AM LINE STAKER Height - - Body Mass Index 20.92 04/11/2018 2:05 PM LINE STAKER documented in this encounter Functional Status Functional [...] encounter Discharge Instructions * Discharge Instructions* Brian Gold MD - 04/30/2018 12:54 PM LINE STAKER Images from the original note were not [...] ask them during your visits. ?? Copyright [employer] 2018 Information is for End User's use only and may not be sold, redistributed or otherwise used for commercial purposes. All illustrations and images included in CareNotes?? are the copyrighted property of [employer] or [employer] The above information is an food preparation kitchen aide only. It is not intended as medical advice for individual conditions or treatments. Talk to your doctor, nurse or pharmacist before following any medical regimen to see if it is safe and effective for you. STAKER documented in this encounter Medications at Time of Discharge Medication Sig Dispensed Refills Start Date End Date amLODIPine (NORVASC) 5 MG tabletIndications:Hyper tension, unspecified type Take 1 tablet by mouth once daily 30 tablet 5 01/09/2018 06/10/2018 aspirin (ASPIRIN) 81 MG chew tablet Take 1 tablet by mouth once daily 30 tablet 5 01/09/2018 06/10/2018 clonazePAM (KLONOPIN) 0.5 MG tabletIndications:Parti al idiopathic [...] mouth 2 times daily 60 tablet 8 04/11/2018 06/10/2018 folic acid (FOLVITE) 1 MG tabletIndications:Folat e deficiency Take 1 tablet by mouth once daily 30 tablet 8 04/11/2018 10/26/2018 gabapentin (NEURONTIN) 300 MG capsuleIndications:Part ial 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, intractable, without status epilepticus (HCC) Take 1 capsule by mouth 3 times daily 90 capsule 04/30/2018 06/10/2018 levETIRAcetam (KEPPRA) 750 MG tabletIndications:Parti al 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, intractable, without status epilepticus (HCC) Take 3 tablets by mouth 2 times daily 180 tablet 04/30/2018 06/10/2018 OXcarbazepine (TRILEPTAL) 300 MG tablet Take 1 tablet by mouth 2 times daily 60 tablet 8 04/11/2018 06/10/2018 thiamine (VITAMIN B-1) 100 MG tabletIndications:Lucia ine deficiency Take 1 tablet by mouth once daily 30 tablet 8 04/11/2018 10/26/2018 documented as of this encounter Progress Notes * Tenzin Fischer - 04/30/2018 2:53 PM CST NEUROLOGY CONSULT NOTE Date of Encounter: 04/30/18 Chief Complaint: two seizures HISTORY: Source: History was obtained from the patient and the medical chart HPI: Bi Tabor is a 58 y.o. year old AA male with PMH of CVA, seizures, and HTN who was BIBEMS to the ED this morning for evaluation of seizures. He states that he had one 4-5 minute seizure last night at approximately 11:30 PM in which he felt an aura of tingling over the occiput and dizziness before the onset of shaking in all four extremities. He states that he fell when this started but did not hit his head and he did not lose consciousness at any point during this episode. He then had another similar episode this morning at 8:00 AM. He states that this morning, he developed occipital tingling, felt slightly confused, then had onset of seizure-like activity with shaking of all four extremities. This episode also lasted 4-5 minutes, and he fell but did not hit his head or lose consciousness. Immediately after the episode this morning, he contacted EMS. He had no tongue biting, incontinence, or post ictal confusion with either episode. He states that he has been taking all of his medications as prescribed, but notes that he ran out of gabapentin two days ago and took his last dose of Keppra this morning. He does note that he took Nyquil for help with sleeping the last two nights, with the last dose last night at 11:00 PM. He denies fevers, chills, cough, chest pain, SOB, abdominal pain, diarrhea, dysuria, numbness, weakness, or tingling. He is a smoker but denies use of EtOH or illicit drugs, stating that he quit drinking two years ago. Past Medical History: Past Medical History: Diagnosis [...] to Encounter Medication Sig Dispense Refill ??? Cyanocobalamin (B-12) 1000 MCG Take 1 mg by mouth once daily 30 capsule 8 ??? folic acid (FOLVITE) 1 MG tablet Take 1 tablet by mouth once daily 30 tablet 8 ??? thiamine (VITAMIN B-1) 100 MG tablet Take 1 tablet by mouth once daily 30 tablet 8 ??? divalproex DR (DEPAKOTE) 500 MG tablet Take 1 tablet by mouth 2 times daily 60 tablet 8 ??? OXcarbazepine (TRILEPTAL) 300 MG tablet Take 1 tablet by mouth 2 times daily 60 tablet 8 ??? clonazePAM (KLONOPIN) 0.5 MG tablet Take 1 tablet by mouth every 8 hours as needed (After a seizure to prevent clustering. Please call the office if seizures occur.) 20 tablet 2 ??? aspirin (ASPIRIN) 81 MG chew tablet Take 1 tablet by mouth once daily 30 tablet 5 ??? amLODIPine (NORVASC) 5 MG tablet Take 1 tablet by mouth once daily 30 tablet 5 Current Medications: levETIRAcetam 2,250 mg Oral BID divalproex DR 500 mg Oral BID OXcarbazepine 300 mg Oral BID gabapentin 300 mg Oral TID Review of Systems (ROS): - General: Denies fever, chills, change in weight, change in appetite, fatigue - Head: Denies headache, dizziness, trauma - Eyes: Denies acute vision changes, eye pain, eye redness - Nose: Denies nasal congestion, rhinorrhea, epistaxis - Throat: Denies sore throat, post-nasal drip - Cardiac: Denies palpitations, MENDOZA, orthopnea, PND - Respiratory: Denies wheezing, hemoptysis - Gastrointestinal: Denies nausea, vomiting, constipation - Genitourinary: Denies frequency, hesitancy, hematuria - Endocrine: Denies intolerance to heat or cold, polyuria, polydipsia - Infectious: Denies night sweats - Musculoskeletal: Denies joint pain, muscle pain, edema - Neurologic: Denies pain OBJECTIVE: No intake or output data in the 24 hours ending 04/30/18 1457 PHYSICAL EXAM Temp: [98.3 ??F (36.8 ??C)] 98.3 ??F (36.8 ??C) Pulse: [67-90] 75 Resp: [05-23] 12 BP: (131-154)/(71-108) 147/88 General: NAD, Pleasant, Cooperative Head: Head AT & NC Neurological Exam: Cortical Function MS: Awake, Alert; Oriented to Person, Place, Time, Situation Follows commands Language: Fluency, Comprehension, Repetition, Naming, all intact VF: Intact to confrontation Neglect: No visual neglect, No tactile neglect Cranial Nerves Pupils 3 mm and BRTL; EOMI; No Ptosis; No Nystagmus Facial sensation intact BL (forehead, infraorbital, jaw) Facial movements intact (upper and lower) Hearing intact to finger rub BL Palate elevation intact and symmetric Trapezius strength intact Tongue protrusion intact and symmetric Motor Abnormal Movement: None Bulk: Normal Tone: Normal Strength: Appropriate for age RUE 5/5 LUE 5/5 RLE 5/5 LLE 5/5 DTR: Bi Tri BR Pat Ach Toes R 2+ 2+ 2+ 2+ 2+ Down L 2+ 2+ 2+ 2+ 2+ Down Sensory Intact to Light Touch, Pin Prick, Temperature, Vibration BL throughout Cerebellar FNF, HKS intact BL Gait was not assessed Laboratory studies reviewed (Yes): CBC Recent Labs Component Name 04/30/18 1025 03/31/18 1615 03/03/18 1658 WBC 4.9 6.0 4.8 HGB 15.3 15.4 14.6 HCT 44.4 44.7 43.1 MCV 96.1 95.5 96.0 PLT 129* 157 135* BMP Recent Labs Component Name 04/30/18 1025 03/31/18 1615 03/03/18 1745 CREATININE 1.0 0.9 0.8 BUN 14 12 10 NA 140 140 138 CL 105 106 106 CO2 21* 25 23 ABG Invalid input(s): PHART, PO2ART, BFN1TEV, S3FIORB, HSD7PTM LFTs Recent Labs Component Name 04/30/18 1025 ALT 9 AST 18 ALKPHOS 55 TBILI 0.5 COAGs No results for input(s): PT, INR, APTT in the last 08531 hours. LIPIDs No results for input(s): CHOL, HDL, LDLCALC, TRIG, CHOLHDL in the last 82252 hours. CARDIAC No results for input(s): CKTOTAL, CKMB, TROPONINI in the last 18572 hours. Invalid input(s): CKMBINDEX DIABETES Recent Labs Component Name 04/30/18 1025 GLU 101 CREATININE 1.0 ASSESSMENT AND PLAN: Bi Tabor is a 58 y.o. year old male with PMH of CVA, seizures, and HTN who presents with twoseizures, one last night at approximately 11:30 PM and one this morning at approximately 8:00 AM. He had no LOC or post ictal phase with either of these seizures, and at this time, he is back to his baseline and is feeling well, with no return of seizure activity. His history and physical are most consistent with focal seizures. The episodes last night and this morning were atypical for him. His Depakote level is slightly high at 108, and lab work is otherwise unremarkable. 1) Focal Seizures - Patient is doing better and is stable at this time. - Will continue his current antiepileptic regimen of Depakote, Keppra, Oxcarbazepine, and Clonazepam. - Will plan for discharge home with close f/u in outpatient neurology clinic. He will need refills of his Gabapentin and Keppra prior to discharge. Case findings discussed with Dr. Foy, senior neurology resident. Tenzin Fischer 04/30/2018 2:57 PM STAKER documented in this encounter Consult Notes * Napoleon Macias MD - 04/30/2018 5:41 PM CSTAssociated Order(s): IP CONSULT TO NEUROLOGY NEUROLOGY HISTORY AND PHYSICAL NOTE Date of Encounter: 04/30/18 Chief Complaint: seizures HISTORY: Source: History was obtained from the patient and the medical chart HPI: Bi Tabor is a 58 y.o. year old with PMHx significant epilepsy that began after stroke. Patient was at home when at approximately 11 PM he felt tingling at occiput. He states that following this sensation he had generalized convulsions with preserved awareness lasting 4 to 5 minutes with no other accompanying symptoms. He states that afterwards he had no post-ictal confusion. He then had another 2 to 3 minute episode of generalized convulsions with preserved awareness and no post-ictal confusion this AM. Patient states that he is compliant with AEDs (currently on Keppra 2250 BID, Trileptal 300 mg BID, and Depakote DR 500 mg BID) although states that he took last dose of Keppra this morning. Patient states that last seizure was at beginning of March. He denies any current illness or sleep deprivation. Past Medical History: Past Medical History: Diagnosis [...] to Encounter Medication Sig Dispense Refill ??? Cyanocobalamin (B-12) 1000 MCG Take 1 mg by mouth once daily 30 capsule 8 ??? folic acid (FOLVITE) 1 MG tablet Take 1 tablet by mouth once daily 30 tablet 8 ??? thiamine (VITAMIN B-1) 100 MG tablet Take 1 tablet by mouth once daily 30 tablet 8 ??? divalproex DR (DEPAKOTE) 500 MG tablet Take 1 tablet by mouth 2 times daily 60 tablet 8 ??? OXcarbazepine (TRILEPTAL) 300 MG tablet Take 1 tablet by mouth 2 times daily 60 tablet 8 ??? clonazePAM (KLONOPIN) 0.5 MG tablet Take 1 tablet by mouth every 8 hours as needed (After a seizure to prevent clustering. Please call the office if seizures occur.) 20 tablet 2 ??? aspirin (ASPIRIN) 81 MG chew tablet Take 1 tablet by mouth once daily 30 tablet 5 ??? amLODIPine (NORVASC) 5 MG tablet Take 1 tablet by mouth once daily 30 tablet 5 Current Medications: No current facility-administered medications for this encounter. Review of Systems (ROS): - General: Denies fever, chills, change in weight, change in appetite, fatigue - Head: Denies headache, dizziness, trauma - Eyes: Denies acute vision changes, eye pain, eye redness - Ears: Denies acute hearing changes, ear pain - Nose: Denies nasal congestion, rhinorrhea, epistaxis - Throat: Denies sore throat, post-nasal drip - Cardiac: Denies chest pain, palpitations, MENDOZA, orthopnea, PND - Respiratory: Denies SOB, cough, sputum, wheezing, hemoptysis - Gastrointestinal: Denies nausea, vomiting, abdominal pain, diarrhea, constipation - Genitourinary: Denies dysuria, frequency, hesitancy, hematuria - Endocrine: Denies intolerance to heat or cold, polyuria, polydipsia - Infectious: Denies fever, chills, night sweats - Musculoskeletal: Denies joint pain, muscle pain, edema - Neurologic: Denies weakness, numbness, tingling, pain OBJECTIVE: No intake or output data in the 24 hours ending 04/30/181956 PHYSICAL EXAM Temp: [98.3 ??F (36.8 ??C)] 98.3 ??F (36.8 ??C) Pulse: [65-90] 65 Resp: [12-25] 16 BP: (101-154)/(66-108) 131/66 General: NAD, Pleasant, Cooperative Neurological Exam: Cortical Function MS: Awake, Alert; Oriented to Person, Place, Time, Situation Follows commands Language: Fluency, Comprehension, Repetition, Naming all intact VF: Intact to confrontation Neglect: No visual neglect, No tactile neglect Cranial Nerves Pupils 4 mm and BRTL; EOMI; No Ptosis; No Nystagmus Facial sensation intact BL (forehead, infraorbital, jaw) Maseter and temporalis strength intact Facial movements intact (upper and lower) Hearing intact to finger rub BL Palate elevation intact and symmetric SCM and trapezius strength intact Tongue protrusion intact and symmetric Motor Abnormal Movement: None Bulk: Normal Tone: Normal Strength: Appropriate for age RUE 5/5 LUE 5/5 RLE 5/5 LLE 5/5 DTR: 2+ throughout Sensory Intact to Light Touch, Pin Prick, Temperature, Vibration BL throughout Cerebellar Laboratory studies reviewed: CBC Component Name 04/30/18 1025 WBC 4.9 HGB 15.3 HCT 44.4 MCV 96.1 PLT 129* BMP Component Name 04/30/18 1025 CREATININE 1.0 BUN 14 NA 140 CL 105 CO2 21* LFTs Recent Labs Component Name 04/30/18 1025 ALT 9 AST 18 ALKPHOS 55 TBILI 0.5 DIABETES Recent Labs Component Name 04/30/18 1025 GLU 101 CREATININE 1.[address] Head No acute intracranial process ASSESSMENT AND PLAN: Bi Tabor is a 58 y.o. year old male with PMH of epilepsy for which he is on Trileptal 300 mgBID, Keppra 2250 BID, and Depakote DR 500 mg BID. Neurology consulted due to 2 seizures (one yesterday, one today at 7AM). Patient has since returned to baseline with no further seizures. - Continue Trileptal 300 mg BID, Keppra 2250 BID, and Depakote DR 500 mg BID (refill Keppra as patient states that he is out) with 0.5 mg Clonazepam as needed to prevent seizure clusters - Instructed patient to contact Neurology office if he continues to have seizures following discharge Case findings discussed with Dr. Nico Payan over the phone, Neurology attending. Napoleon Macias MD 04/30/2018 7:57 PM STAKER documented in this encounter ED Notes * Kinza Monreal RN - 04/30/2018 5:39 PM CST Patient ambulated out of ED with walker. Discharge instructions reviewed and education complete. Ptverbalized understanding. Patient left with prescription for home medications. Pt denies any further questions at this time. VSS. A&O4. Pt left with belongings. Patient provided cab voucher for discharge. STAKER * Serjio Vilchis MD - 04/30/2018 2:16 PM CST ASSUMED CARE NOTE Patient signed out to me by Dr. Tai at 2:17 PM. Briefly, Bi Tabor is a 58 y.o. male is being evaluated for seizures, pt reports having seizures last night and this morning. Ambulatory/ alert/ and oriented upon arrival. At this time the patient's condition is Stable. Thus far, studies reveal platelet of 129. Pending psych/neuro consult/ recs. Plan is pending discharge. 5:06 PM: spoke with patient about neurology follow-up and refill of Depakote today. Patient states he will call the neurology clinic tomorrow and make an appointment for the following week. 5:08 PM: I have reviewed his diagnostic findings [...] localized onset, intractable, without status epilepticus Disposition: Discharge. By signing my name below, I, Sha Tipton, attest that this documentation has been prepared under the direction and in the presence of Dr. Vilchis. Signed: Laisha Arredondo. Date: 04/30/2018. Time:2:17 PM. I, Dr. Vilchis, personally performed the services described in this documentation. All medical record entries made by the scribe were at my direction and in my presence. I have reviewed the chart and agree that the record reflects my personal performance is and is accurate and complete. STAKER * Kinza Monreal RN - 04/30/2018 1:51 PM CST This RN assisted patient with trying to get ahold of patients brother. Patient unable to get ahold of brother. Will continue to monitor. STAKER * Kinza Monreal RN - 04/30/2018 10:16 AM CST Patient BIBEMS for complaints of seizure. Per EMS patient reports, having a seizure last night andthis morning. Patient was ambulatory and alert and oriented on scene. STAKER * Abida, Eliane Leal MD - 04/30/2018 9:53 AM CST ED Attending Note Interval History: Bi Tabor is a 58 y.o. male with a medical history of HTN, seizures, and CVA is presenting tot ED for seizures. 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 Patient fell after the seizure but did not hit his head or bite his tongue. Seizures have been frequent in the past few months. Associated symptoms include nausea and dizziness. Patient denies abdominal pain, nausea, vomiting, urinary incontinence, bowel incontinence, diarrhea, headache, chest pain, shortness of breath, fever, chills, neck pain, back pain, or vision changes. Patient has no othermedical complaints at this time. Patient is a smoker, denies drug or alcohol use. Patient is not compliant with medications, not taking as directed. Past Medical History: Diagnosis Date ??? CVA [...] Cardiovascular: Negative for chest pain, palpitations Gastrointestinal: +nausea Negative abdominal pain, vomiting, diarrhea Genitourinary: Negative for difficulty urinating, hematuria, dysuria Musculoskeletal: Negative for neck pain, back pain, myalgia Skin: Negative for rash, itching Neurological: +seizures, +dizziness Negative for OROPEZA, weakness, numbness, tingling Psychiatric: Negative for SI, hallucinations, anxiety Vitals: 04/30/18 1245 04/30/18 1250 04/30/18 1350 04/30/18 1400 BP: 135/73 144/74 147/88 Pulse: 72 67 75 Resp: 16 15 12 Temp: SpO2: 96% Weight: Exam: Constitutional: well developed, well nourished, no acute distress HENT: normocephalic, atraumatic, moist oral mucosa, conjunctiva normal, 3 cm soft nodule to superior right eyebrow, 5 cm soft nodule to the occipital lobe Eyes: PERRL, EOMi Neck: supple, normal ROM Cardiovascular: regular rate and rhythm, no murmur Respiratory: clear to auscultation bilaterally, no wheezes, no respiratory distress Abdomen: soft, non-tender, non-distended Genitourinary: deferred Musculoskeletal: no edema or deformities Skin: warm, dry, no lesions Neurological: awake, alert&Ox4, moving all extremities, no focal motor/sensation deficits, cranial nerves intact, strength intact Throughout Psychiatric: mood and affect normal Medical Decision Makin. Seizures with known seizure disorder Assessment/Plan: Check Depakote level, EKG, CBC, CMP, possible CT head. Results: Labs Reviewed COMPREHENSIVE METABOLIC PANEL - Abnormal; Notable for the following: Result Value CO2 21 (*) All other components within normal limits CBC W AUTO DIFFERENTIAL - Abnormal; Notable for the following: Platelet 129 (*) Eosinophils Absolute 0.23 (*) All other components within normal limits VALPROIC ACID LEVEL - Abnormal; Notable for the following: Valproic Acid Total 108 (*) All other components within normal limits URINALYSIS W/MICROSCOPIC NO CULTURE - Abnormal; Notable for the following: Mucus UA Occasional (*) All other components within normal limits TSH - Normal OXCARBAZEPINE BLOOD LEVETIRACETAM LEVEL GLUCOSE - POINT OF CARE Narrative: Corporate Development Officer: MOISES JUNE CT HEAD NON CONTRAST Final Result EXAMINATION: Computed tomography (CT) of the head without contrast HISTORY: seizure TECHNIQUE: CT of the head was performed without contrast according to standard protocol. FINDINGS: Comparison is made with a prior head CT from 03/31/2018. No acute intra- or extra-axial fluid collections are identified. There is diffuse cerebral volume loss with associated ex vacuo ventricular dilatation. The basilar cisterns are patent. No mass effect or midline shift is seen. An area of encephalomalacia in the right occipital lobe is unchanged. Old lacunar infarctions in the basal ganglia are unchanged. The garber-white matter differentiation is normal. Periventricular white matter hypoattenuation is indicative of chronic small vessel ischemic disease. There is vascular calcification of the carotid siphons. Other than mild paranasal sinus disease and a chronic left lamina papyracea fracture, the visualized portions of the orbits, paranasal sinuses, and mastoids appear normal. No acute fracture is identified. Soft tissue lesion in the left occipital region is unchanged. IMPRESSION: 1. No acute intracranial process. 2. Right occipital encephalomalacia is consistent with a chronic infarct. I, Dr. LORI SANCHEZ M.D. have personally reviewed and interpreted this examination/study. This report was electronically signed by LORI SANCHEZ M.D. on 04/30/2018 1:45 PM . ED course: The patient's Oxygen Saturation Monitor was interpreted by me. The reading was 96%. The patient wason RA at the time of the reading. This is interpreted as normal. - Valproic acid level slightly elevated. Will discuss with Neurology to determine further medication management. 1:26 PM - Discussed all the pertinent aspects of the case with Neuro who will see the patient. Dispo pending recs Patient signed out to Dr. Vilchis at 2:15 PM. At this time the patient's condition is Stable . Pending Neuro consult Disposition pending neuro recs Consult No Procedure done at this time No Ultrasound done at this time No CRITICAL CARE IN THE ED No Orders and Medicine administered during this encounter: Orders Placed This Encounter ??? CT HEAD NON CONTRAST ??? TSH ??? COMPREHENSIVE METABOLIC PANEL ??? CBC W AUTO DIFFERENTIAL ??? VALPROIC ACID LEVEL ??? OXCARBAZEPINE BLOOD ??? LEVETIRACETAM LEVEL ??? URINALYSIS W/MICROSCOPIC NO CULTURE ??? EKG 12-LEAD ??? DISCONTD: gabapentin (NEURONTIN) capsule 300 mg ??? levETIRAcetam (KEPPRA) tablet 2,250 mg ??? divalproex (DEPAKOTE) tablet 500 mg ??? OXcarbazepine (TRILEPTAL) tablet 300 mg ??? DISCONTD: gabapentin (NEURONTIN) capsule 300 mg ??? clonazePAM (KlonoPIN) tablet 0.5 mg ??? gabapentin (NEURONTIN) capsule 300 mg ??? gabapentin (NEURONTIN) 300 MG capsule ??? levETIRAcetam (KEPPRA) 750 MG tablet Medications levETIRAcetam (KEPPRA) tablet 2,250 mg (not administered) divalproex DR (DEPAKOTE) tablet 500 mg (not administered) OXcarbazepine (TRILEPTAL) tablet 300 mg (not administered) gabapentin (NEURONTIN) capsule 300 mg (300 mg Oral $ Given 04/30/18 1154) clonazePAM (KlonoPIN) tablet 0.5 mg (0.5 mg Oral $ Given 04/30/18 1154) Clinical Impression: 1. Seizure 2. Partial 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, intractable, without status epilepticus Disposition: Signed out to Dr. Vilchis. By signing my name below, I, Loreto Carcamo, attest that this documentation has been prepared under the direction and in the presence of Dr. Tai. Signed: Laisha Diggs. Date: 04/30/2018. Time:2:17 PM. I, Dr. Tai, personally performed the services described in this documentation. All medical record entries made by the gurjitibzion were at my direction and in my presence. I have reviewed the chart and agree that the record reflects my personal performance and is accurate and complete. STAKER * Susan Mulligan, RN - 04/30/2018 9:50 AM CST Bed: 2 Expected date: Expected time: Means of arrival: Comments: Seizure with history of seizure STAKER documented in this encounter Plan of Treatment Upcoming Encounters Date Type Department Care Team (Late st Contact Info) Description 12/05/2024 1:00 PM CDT Office Visit [facility] - Neurology [address] [facility], [place] [id number] Sean Raymundo, DO [address] [place] [id number] documented as of this encounter Procedures Procedure Name Priority Date/Time Associated Diagnosis Comments CARDIAC EKG ORDER 06/07/2018 2:5 3 PM LINE STAKER URINALYSIS W/MICROSCOPIC NO CULTURE STAT 04/30/2018 12:36 PM LINE STAKER LEVETIRACETAM LEVEL STAT 04/30/2018 1 1:03 AM LINE STAKER OXCARBAZEPINE BLOOD STAT 04/30/2018 1 1:[address] HEAD WO CONTRAST STAT 04/30/2018 1 0:39 AM LINE STAKER Seizure (HCC) CBC W AUTO DIFFERENTIAL STAT 04/30/2018 10:25 AM LINE STAKER COMPREHENSIVE METABOLIC PANEL STAT 04/30/2018 10:25 AM LINE STAKER TSH RINKU 04/30/2018 10:25 AM LINE STAKER VALPROIC ACID LEVEL STAT 04/30/2018 1 0:25 AM LINE STAKER GLUCOSE - POINT OF CARE Routine 04/30/2018 10:15 AM LINE STAKER EKG 12-LEAD Routine 04/30/2018 10:03 AM LINE STAKER Seizure (HCC) documented in this encounter Results * CARDIAC EKG ORDER (06/07/2018 2:53 PM LINE STAKER) Narrative 06/07/2018 2:53 PM LINE STAKER Ordered by an unspecified provider. Scanned Document CARDIAC SERVICES ORD ERABLES * (ABNORMAL) URINALYSIS W/MICROSCOPIC NO CULTURE (04/30/2018 12:36 PM LINE STAKER) Color UA Yellow Straw, Yellow, Colorless, Light Yellow 04/30/2018 12:45 PM [facility] Clarity UA Clear Clear 04/30/2018 12:45 PM [facility] Specific [place] UA 1.008 1.001 - 1.030 04/30/2018 12:45 PM [facility] pH UA 6.0 5.0 - 8.0 04/30/2018 12:45 PM [facility] Protein UA Negative <=20 mg/dL 04/30/2018 12:45 PM [facility] Glucose UA Negative Negative mg/dL 04/30/2018 12:45 PM [facility] Ketone UA Negative Negative mg/dL 04/30/2018 12:45 PM [facility] Bilirubin UA Negative Negative mg/dL 04/30/2018 12:45 PM [facility] Blood UA Negative Negative 04/30/2018 12:45 PM [facility] Nitrite UA Negative Negative 04/30/2018 12:45 PM [facility] Leukocyte Esterase Negative Negative 04/30/2018 12:45 PM [facility] Urobilinogen UA <2.0 <2.0 mg/dL 8 12:45 PM [facility] RBC UA <1 0 - 8 /HPF 04/30/2018 12:45 PM [facility] WBC UA <1 0 - 2 /HPF 04/30/2018 12:45 PM [facility] Mucus UA Occasional( A) None /LPF 04/30/2018 12:45 PM [facility] Urine URINE SPECIMEN OBTAINED BY CLEAN CATCH PROCEDURE / Unknown Collection / Unknown 04/30/2018 12:36 PM LINE STAKER 04/30/2018 12:36 PM [facility] Brian Gold MD LAB - URINALYSIS ORD ERABLES [address] [phone] * (ABNORMAL) LEVETIRACETAM LEVEL (04/30/2018 11:03 AM [facility]) Levetiracetam 55.5(H) 10.0 - 40.0 ug/mL 05/03/2018 8:11 PM LINE STAKER [facility] ([facility] Blood BLOOD SPECIMEN / Unknown Venipuncture / Unknown 04/30/2018 11:03 AM LINE STAKER 04/30/2018 11:03 AM LINE STAKER Narrative [facility] ([facility]) - 05/03/2018 8:11 PM LINE STAKER Performed at: ??01 - [facility] ??[id number] Cash Manager: Terence Ramos MD, Phone: ??[phone] Brian Gold MD LAB - THERAPEUTIC DR DIAZ MONITORING ORDERABLES Performing Organization Address City/[facility]/ZIP Co de Phone Number [facility] [address] [place] [address], [place] * (ABNORMAL) OXCARBAZEPINE BLOOD (04/30/2018 11:03 AM LINE STAKER) Oxcarbazepine Metabolite 2(L) 10 - 35 ug/mL 05/03/2018 8:11 PM LINE STAKER [facility] ([facility]) Comment:Detection Limit = 1 Blood BLOOD SPECIMEN / Unknown Venipuncture / Unknown 04/30/2018 11:03 AM LINE STAKER 04/30/2018 11:03 AM LINE STAKER Narrative [facility] ([facility]) - 05/03/2018 8:11 PM LINE STAKER Performed at: ??01 - [facility] ??[id number] Cash Manager: Terence Ramos MD, Phone: ??[phone] Brian Gold MD LAB - CHEMISTRY ORDE RABLES [facility] [address] [place] [address], [place] * CT HEAD NON CONTRAST (04/30/2018 10:39 AM LINE STAKER) Anatomical Region Laterality Modality Head Computed Tomogra phy 04/30/2018 10:3 7 AM LINE STAKER Impressions 04/30/2018 1:45 PM LINE STAKER IMPRESSION: 1. No acute intracranial process. 2. Right occipital encephalomalacia is consistent with a chronic infarct. I, Dr. LORI SANCHEZ M.D. have personally reviewed and interpreted this examination/study. This report was electronically signed by LORI SANCHEZ M.D. ??on 04/30/2018 1:45 PM . Narrative 04/30/2018 1:45 PM LINE STAKER EXAMINATION: Computed tomography (CT) of the head without contrast HISTORY: seizure TECHNIQUE: CT of the head was performed without contrast according to standard protocol. FINDINGS: Comparison is made with a prior head CT from 03/31/2018. No acute intra- or extra-axial fluid collections are identified. There is diffuse cerebral volume loss with associated ex vacuo ventricular dilatation. The basilar cisterns are patent. No mass effect or midline shift is seen. An area of encephalomalacia in the right occipital lobe is unchanged. Old lacunar infarctions in the basal ganglia are unchanged. The garber-white matter differentiation is normal. Periventricular white matter hypoattenuation is indicative of chronic small vessel ischemic disease. There is vascular calcification of the carotid siphons. Other than mild paranasal sinus disease and a chronic left lamina papyracea fracture, the visualized portions of the orbits, paranasal sinuses, and mastoids appear normal. No acute fracture is identified. Soft tissue lesion in the left occipital region is unchanged. Procedure Note Lori Sanchez MD - 04/30/2018 EXAMINATION: Computed tomography (CT) of the head without contrast HISTORY: seizure TECHNIQUE: CT of the head was performed without contrast according to standard protocol. FINDINGS: Comparison is made with a prior head CT from 03/31/2018. No acute intra- or extra-axial fluid collections are identified. Thereis diffuse cerebral volume loss with associated ex vacuo ventricular dilatation. The basilar cisterns are patent. No mass effect or midline shift is seen. An area of encephalomalacia in the right occipital lobeis unchanged. Old lacunar infarctions in the basal ganglia are unchanged.The garber-white matter differentiation is normal. Periventricular whitematter hypoattenuation is indicative of chronic small vessel ischemic disease. There is vascular calcification of the carotid siphons. Other than mild paranasal sinus disease and a chronic left lamina papyracea fracture,the visualized portions of the orbits, paranasal sinuses, and mastoidsappear normal. No acute fracture is identified. Soft tissue lesion in the left occipital region is unchanged. IMPRESSION: 1. No acute intracranial process. 2. Right occipital encephalomalacia is consistent with a chronicinfarct. I, Dr. LORI SANCHEZ M.D. have personally reviewed and interpreted this examination/study. This report was electronically signed by LORI SANCHEZ M.D. on 04/30/2018 1:45 PM . Brian Gold MD CT ORDERABLES * (ABNORMAL) VALPROIC ACID LEVEL (04/30/2018 10:25 AM LINE STAKER) Pathologist [facility] Valproic Acid Total 108(H) 50 - 100 mcg/mL 04/30/2018 11:16 AM [facility] Blood BLOOD SPECIMEN / Unknown Venipuncture / Unknown 04/30/2018 10:25 AM LINE STAKER 04/30/2018 10:25 AM [facility] Brian Gold MD LAB [facility] Organization Address City/State/[facility] Co de Phone Number [address] [phone] * (ABNORMAL) CBC W AUTO DIFFERENTIAL (04/30/2018 10:25 AM LINE STAKER) Pathologist [facility] WBC 4.9 3.5 - 10.5 10? 3 /uL 04/30/2018 10:31 AM [facility] RBC 4.62 4.30 - 5.70 10? 6 /uL 04/30/2018 10:31 AM [facility] Hemoglobin 15.3 13.5 - 17.5 g/dL 04/30/2018 10:31 AM [facility] Hematocrit 44.4 39.0 - 50.0 % 04/30/2018 10:31 AM [facility] MCV 96.1 81.0 - 97.0 fL 04/30/2018 10:31 AM [facility] MCH 33.1 28.0 - 34.0 pg 04/30/2018 10:31 AM [facility] MCHC 34.5 32.0 - 36.0 g/dL 04/30/2018 10:31 AM [facility] Platelet Count 129(L) 150 - 400 10? 3 /uL 04/30/2018 10:31 AM [facility] RDW-SD 42.6 36.0 - 50.0 fL 04/30/2018 10:31 AM [facility] RDW-CV 12.1 11.2 - 14.8 % 04/30/2018 10:31 AM [facility] MPV 12.8 9.3 - 12.8 fL 04/30/2018 10:31 AM [facility] Neutrophils % 49.7 35.0 - 70.0 % 04/30/2018 10:31 AM [facility] Lymphocytes % 39.2 19.7 - 55.1 % 04/30/2018 10:31 AM [facility] Monocytes % 6.2 3.0 - 15.0 % 04/30/2018 10:31 AM [facility] Eosinophils % 4.7 0.0 - 6.0 % 04/30/2018 10:31 AM [facility] Basophil % 0.2 0.0 - 1.5 % 04/30/2018 10:31 AM [facility] Neutrophils Absolute 2.4 1.6 - 7.0 10? 3 /uL 04/30/2018 10:31 AM [facility] Lymphocyte Absolute 1.9 0.8 - 2.9 10? 3 /uL 04/30/2018 10:31 AM [facility] Monocytes Absolute 0.30 0.14 - 0.66 10? 3 /uL 04/30/2018 10:31 AM [facility] Eosinophils Absolute 0.23(H) 0.00 - 0.22 10? 3 /uL 04/30/2018 10:31 AM [facility] Basophils Absolute 0.01 0.00 - 0.06 10? 3 /uL 04/30/2018 10:31 AM [facility] Immature Granulocytes % 0.4 0.0 - 1.0 % 04/30/2018 10:31 AM [facility] Blood BLOOD SPECIMEN / Unknown Venipuncture / Unknown 04/30/2018 10:25 AM LINE STAKER 04/30/2018 10:25 AM [facility] Brian Gold MD LAB - HEMATOLOGY ORD ERABLES [facility] [address] [place] [address], [place] [phone] * (ABNORMAL) COMPREHENSIVE METABOLIC PANEL (04/30/2018 10:25 AM [facility]) BUN 14 7 - 26 mg/dL 04/30/2018 10:49 AM [facility] Creatinine 1.0 0.6 - 1.2 mg/dL 04/30/2018 10:49 AM [facility] Sodium 140 136 - 145 mmol/L 04/30/2018 10:49 AM [facility] Potassium 3.7 3.5 - 4.5 mmol/L 04/30/2018 10:49 AM [facility] Chloride 105 98 - 107 mmol/L 04/30/2018 10:49 AM [facility] CO2 21(L) 22 - 29 mmol/L 04/30/2018 10:49 AM [facility] Glucose 101 70 - 115 mg/dL 04/30/2018 10:49 AM [facility] Calcium 9.1 8.4 - 10.2 mg/dL 04/30/2018 10:49 AM [facility] Protein Total 6.9 6.0 - 8.3 g/dL 04/30/2018 10:49 AM [facility] Albumin 3.6 3.4 - 5.0 g/dL 04/30/2018 10:49 AM [facility] Bilirubin Total 0.5 0.2 - 1.2 mg/dL 04/30/2018 10:49 AM [facility] Alkaline Phosphatase 55 40 - 150 Units/L 04/30/2018 10:49 AM [facility] ALT 9 0 - 55 Units/L 04/30/2018 10:49 AM [facility] AST 18 5 - 34 Units/L 04/30/2018 10:49 AM [facility] Anion Gap 18 8 - 18 04/30/2018 10:49 AM [facility] BUN/Creatinine Ratio 14 7 - 23 04/30/2018 10:49 AM [facility] Osmolality Calculated 291 270 - 300 mOsm/kg 04/30/2018 10:49 AM [facility] Albumin/Globulin Ratio 1.1 1.1 - 2.3 04/30/2018 10:49 AM [facility] eGFR >60 >60 mL/min/1.7 3 m2 04/30/2018 10:49 AM LINE STAKER [facility] Blood BLOOD SPECIMEN / Unknown Venipuncture / Unknown 04/30/2018 10:25 AM LINE STAKER 04/30/2018 10:25 AM LINE STAKER Brian Gold MD LAB - CHEMISTRY [facility] Performing Organization Address City/[facility]/ZIP Co de Phone Number [address] [phone] * TSH (04/30/2018 10:25 AM LINE STAKER) TSH 1.503 0.350 - 4.940 uIU/mL 04/30/2018 11:14 AM [facility] Blood BLOOD SPECIMEN / Unknown Venipuncture / Unknown 04/30/2018 10:25 AM LINE STAKER 04/30/2018 10:25 AM LINE STAKER Brian Gold MD LAB - CHEMISTRY [facility] Performing Organization Address [facility]/ZIP Co de Phone Number [address] [phone] * GLUCOSE - POINT OF CARE (04/30/2018 10:15 AM LINE STAKER) Pathologist [facility] Glucose WB/POC 84 70 - 115 mg/dL 04/30/2018 11:50 AM LINE STAKER [facility] Specimen Type Arterial/C apillary 04/30/2018 11:50 AM LINE STAKER [facility] Blood BLOOD SPECIMEN / Unknown 04/30/2018 10:15 AM LINE STAKER 04/30/2018 11:49 AM LINE STAKER Narrative [facility] - 04/30/2018 11:50 AM LINE STAKER Corporate Development Officer: [employer] Provider Unknown LAB - POINT OF CARE ORDERABLES Performing Organization Address [facility]/[place] [address], [place] [phone] * EKG 12-LEAD (04/30/2018 10:03 AM LINE STAKER) Ventricular Rate 95 BPM [facility] Atrial Rate 95 BPM [facility] P-R Interval 156 ms [facility] QRS Duration ms 82 ms [facility] Q-T Interval ms 346 ms [facility] MUSE QTC Calculation (Bezet) 434 ms [facility] MUSE Calculated P [place] 77 degrees [facility] M[facility] Calculated R [place] 8 degrees [facility] MUSE Calculated T [place] 69 degrees [facility] MUSE Interpretation EKG SINUS RHYTHM WITH PREMATURE ATRIAL COMPLEXES POSSIBLE LEFT ATRIAL ENLARGEMENT 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) ABNORMAL ECG WHEN COMPARED WITH ECG OF 28-AUG-2016 02:44, NONSPECIFIC T WAVE ABNORMALITY NOW EVIDENT IN ANTERIOR LEADS Confirmed by [email or web address] OLSEN ([id number]), research editor NATALIA HUFF ([id number]) on 05/12/2018 12:37:17 PM [facility] MUSE 04/30/2018 10:0 3 AM LINE STAKER 05/12/2018 12:37 PM LINE STAKER Brian Gold MD ECG ORDERABLES [facility] M[facility] documented in this encounter Visit Diagnoses Diagnosis Seizure (HCC) Other convulsions Partial 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, intractable, without status epilepticus (HCC) documented in this encounter Administered Medications Inactive Administered Medications - up to 3 most recent administrations Medication Order MAR Action Action Date Dose Rate Site clonazePAM (KlonoPIN) tablet 0.5 mg 0.5 mg, Oral, NOW, 1 dose, On 04/30/18 at 1130 $ Given 04/30/2018 11:54 AM LINE STAKER 0.[address] (DEPAKOTE) tablet 500 mg 500 mg, Oral, 2 TIMES DAILY, First dose on 04/30/18 at 2000, Until Discontinued, Do not crush, chew, or cut in half. gabapentin (NEURONTIN) capsule 300 mg 300 mg, Oral, 3 TIMES DAILY, 1094 doses, First dose (after last modification) on 04/30/18 at 1145, Last dose on 04/29/19 at 1400 $ Given 04/30/2018 11:54 AM LINE STAKER 300 mg levETIRAcetam (KEPPRA) tablet 2,250 mg 2,250 mg, Oral, 2 TIMES DAILY, First dose on 04/30/18 at 2000, Until Discontinued, Do not crush or chew because of TASTE only. OXcarbazepine (TRILEPTAL) tablet 300 mg 300 mg, Oral, 2 TIMES DAILY, 730 doses, First dose on 04/30/18 at 2000, Last dose on Tue04/30/19 at 0900, Wear gloves when handling. Avoid direct contact with skin and mucous membranes. documented in this encounter Active and Recently Administered Medications Times are shown in LINE STAKER. Scheduled Medication Order 04/28/2018 04/29/2018 04/30/2018 clonazePAM (KlonoPIN) tablet 0.5 mg (COMPLETED) 0.5 mg, Oral, NOW, 1 dose, On 04/30/18 at 1130 1154 ($ Given - Prov ider: Kinza Monreal RN) divalproex DR (DEPAKOTE) tablet 500 mg 500 mg, Oral, 2 TIMES DAILY, First dose on 04/30/18 at 2000, Until Discontinued, Do not crush, chew, or cut in half. gabapentin (NEURONTIN) capsule 300 mg 300 mg, Oral, 3 TIMES DAILY, 1094 doses, First dose (after last modification) on 04/30/18 at 1145, Last dose on 04/29/19 at 1400 1154 ($ Given - Prov ider: Kinza Monreal RN)[id number] (Not Administered - Provider: Kinza Monreal RN - Reason: See Comments - Comment: Medication administered at 2 hours prior) levETIRAcetam (KEPPRA) tablet 2,250 mg 2,250 mg, Oral, 2 TIMES DAILY, First dose on 04/30/18 at 2000, Until Discontinued, Do not crush or chew because of TASTE only. OXcarbazepine (TRILEPTAL) tablet 300 mg 300 mg, Oral, 2 TIMES DAILY, 730 doses, First dose on 04/30/18 at 2000, Last dose on Tue04/30/19 at 0900, Wear gloves when handling. Avoid direct contact with skin and mucous membranes. documented in this encounter Care Teams Video Rental Clerk Relationship Specialty Start Date End Date Misael Maradiaga DO PCP - General 10/03/17 09/15/20 Elizabeth Sullivan, RN Puppet Master 10/14/17 documented as of this encounter
--- OUTSIDE RECORDS SUMMARY | 2024-06-08 05:44 | XMS_ITS | Encounter Summary ---
Author Organization [facility] Address [address] [facility] [place] [address] Care Team Providers Care Enterprise Application Administrator Name Role Phone Misael Maradiagakarri Primary Care Provider Elizabeth Sullivan RN Unavailable [phone] Reason for Visit * Reason Onset Date Comments Medication Issue 10/05/2017 Encounter Details Date Type Department Care Team (Late st Contact Info) Description 10/05/2017 Telephone [facility] [address] [place] [address] Ck Feliciano MD [facility] [place] [id number] Medication Issue Social History Tobacco Use Types Packs/Day Years Used Date Smoking Tobacco: Never Assessed Sex and Gender Information Value Date Recorded Sex Assigned at Not on file Gender Identity Not on file Sexual Orientation Not on file documented as of this encounter Miscellaneous Notes * Telephone Encounter - Rupa Warren RN - 10/05/2017 3:07 PM CDT Pt called and stated he needs more pills of Gabapentin. Pt states he was told by another MD to take three times a day. Per previous record, pt has called with this complaint previously and dosage was kept at BID. This RN will route to Dr. Feliciano for further assessment of medication. Byron Warren RN documented in this encounter Plan of Treatment Upcoming Encounters Date Type Department Care Team (Late st Contact Info) Description 12/05/2024 1:00 PM CDT Office Visit [facility] - Neurology [address] [place] [address], [place] [address] Sean Raymundo DO [address] [place] [address] [place] [address] documented as of this encounter Visit Diagnoses Not on filedocumented in this encounter Care Teams Enterprise Application Administrator Relationship Specialty Start Date End Date Misael Maradiaga DO PCP - General 10/03/17 09/15/20 Elizabeth Sullivan, ALFRED Housing Property Manager 10/14/17 documented as of this encounter
--- OUTSIDE RECORDS SUMMARY | 2024-06-08 05:45 | XMS_ITS | Encounter Summary ---
Author Organization [facility] Health Address [address] [place] [address] Care Team Providers Care Data Warehouse Architect Name Role Phone Unavailable Primary Care Provider Unavailabl e Encounter Details Date Type Department Care Team (Latest Contact Info) Description 05/07/2015 Emergency Department Historic [facility] EMERGENCY DEPARTMENT [address] [place] [address] Leonardo Hanson MD [address] [place] [phone] Discharge Disposition: Home or Self Care Social History Tobacco Use Types Packs/Day Years Used Date Smoking Tobacco: Never Assessed Sex and Gender Information Value Date Recorded Sex Assigned at Not on file Gender Identity Not on file Sexual Orientation Not on file documented as of this encounter Last Filed Vital Signs Vital Sign Reading Time Taken Comments Blood Pressure 147/82 05/07/2015 4:09 PM ROTARY DRILLER PROSPECTING Pulse 108 05/07/2015 4:09 PM ROTARY DRILLER PROSPECTING Temperature 36.8 ??C (98.2 ??F) 05/07/2015 4:09 PM CS T Respiratory Rate 16 05/07/2015 4:09 PM ROTARY DRILLER PROSPECTING Oxygen Saturation 98% 05/07/2015 4:09 PM ROTARY DRILLER PROSPECTING Inhaled Oxygen Concentration - - Weight - - Height - - Body Mass Index - - documented in this encounter Plan of Treatment Upcoming Encounters Date Type Department Care Team (Late st Contact Info) Description 12/05/2024 1:00 PM CDT Office Visit [facility] - Neurology [address] [place] [phone] Sean Raymundo, DO [address] [facility] [address] [place] [phone] documented as of this encounter Procedures Procedure Name Priority Date/Time Associated Diagnosis Comments GLUCOSE - POINT OF CARE (AMB) [facility] STAT 05/07/2015 4:56 PM ROTARY DRILLER PROSPECTING GLUCOSE - POINT OF CARE (AMB) [facility] STAT 05/07/2015 4:56 PM ROTARY DRILLER PROSPECTING DRUG ABUSE PANEL 10-20+ETHANOL URINE NO CONFIRM STAT 05/07/2015 4:56 PM ROTARY DRILLER PROSPECTING URINALYSIS REFLEX TO MICROSCOPIC NO CULTURE STAT 05/07/2015 4:56 PM ROTARY DRILLER PROSPECTING CBC W AUTO DIFFERENTIAL Routine 05/07/2015 4:56 PM ROTARY DRILLER PROSPECTING BASIC METABOLIC PANEL (CALCIUM TOTAL) STAT 05/07/2015 4:56 PM ROTARY DRILLER PROSPECTING PHENYTOIN LEVEL TOTAL STAT 05/07/2015 4:56 PM ROTARY DRILLER PROSPECTING ALCOHOL ETHYL BLOOD STAT 05/07/2015 4 :56 PM ROTARY DRILLER PROSPECTING GLUCOSE ACCUCHECK Routine 05/07/2015 4:5 5 PM ROTARY DRILLER PROSPECTING documented in this encounter Results * GLUCOSE - POINT OF CARE (AMB) [facility] (05/07/2015 4:56 PM ROTARY DRILLER PROSPECTING) Jessie Nolasco MD LAB - POINT OF CARE ORDERABLES [facility] RADIOLOG[facility] * (ABNORMAL) PHENYTOIN LEVEL TOTAL (05/07/2015 4:56 PM ROTARY DRILLER PROSPECTING) Phenytoin, total 3.1(L) 10.0 - 20.0 mcg/mL [facility] Blood specimen (specimen) BLOOD SPECIMEN / Unknown 05/07/2015 4:56 PM ROTARY DRILLER PROSPECTING 05/07/2015 5:29 PM ROTARY DRILLER PROSPECTING Jessie Nolasco MD LAB - CHEMISTRY MARSHAL MEDEROS Performing Organization Address [facility] Co de Phone Number [address] [phone] * ALCOHOL ETHYL BLOOD (05/07/2015 4:56 PM ROTARY DRILLER PROSPECTING) [facility] Ethanol (mg/dL) 193 None Detected mg/dL [facility] Comment:Ethanol in the patie nt's blood will contribute to the osmolar gap. Ethanol's contribution to the osmolar gap can be estimated by dividing the concentration of ethanol in mg/dL by 4.6. Blood specimen (specimen) BLOOD SPECIMEN / Unknown 05/07/2015 4:56 PM ROTARY DRILLER PROSPECTING 05/07/2015 5:29 PM ROTARY DRILLER PROSPECTING Jessie Nolasco MD LAB - CHEMISTRY MARSHAL MEDEROS Performing Organization Address [facility] Co de Phone Number [address] [phone] * (ABNORMAL) DRUG ABUSE PANEL 10-20+ETHANOL URINE NO CONFIRM (05/07/2015 4:56 PM ROTARY DRILLER PROSPECTING) [facility] Amphetamines Screen Urine Negative Negative : < 1000 ng/mL [facility] Barbiturates Screen Urine Negative Negative : < 200 ng/mL [facility] Benzodiazepine Screen Urine Negative Negative : < 200 ng/mL [facility] Opiates Urine Positive(A) Negative : < 300 ng/mL [facility] Comment: Positive urine opiate screening results should be confirmed by another generally accepted non-immunological method such as gas chromatography or mass spectrometry. ? Cocaine Metabolites Urine Negative Negative : < 300 ng/mL [facility] Phencyclidine Screen Urine Negative Negative : < 25 ng/ml [facility] Cannabinoids Screen Urine Negative Negative : <50 ng/mL [facility] Methadone Screen Urine Negative Negative : < 300 ng/mL [facility] Urine specimen (specimen) 05/07/2015 4:56 PM ROTARY DRILLER PROSPECTING 05/07/2015 5:29 PM ROTARY DRILLER PROSPECTING Narrative [facility] - 05/07/2015 5:49 PM ROTARY DRILLER PROSPECTING The Urine Toxicology Screening Panel does not screen for Propoxyphene, Meprobamate, Carisoprodol, Trazodone, [id number] medications and/or volatiles (Acetone, Isopropanol, Methanol or Ethylene Glycol). Ethanol, Salicylate, Acetaminophen, Tricyclic Antidepressants and several therapeutic drugs may be individually assayed in serum or plasma specimen. Toxicology testing by the [facility] is an aid to medical diagnosis and treatment of patients. No documented chain of custody was maintained. Results are intended to be used for clinical purposes only. ? Jessie Nolasco MD LAB - URINE CHEMISTR Y ORDERABLES Performing Organization Address [facility]/State/[facility] Co de Phone Number [address] [phone] * (ABNORMAL) BASIC METABOLIC PANEL (CALCIUM TOTAL) (05/07/2015 4:56 PM ROTARY DRILLER PROSPECTING) BUN 5(L) 7 - 26 mg/dL [facility] Creatinine 0.7 0.6 - 1.2 mg/dL [facility] Sodium 141 136 - 145 mmol/L [facility] Potassium 4.1 3.5 - 4.5 mmol/L [facility] Chloride 100 98 - 107 mmol/L [facility] CO2 25 22 - 29 mmol/L [facility] Glucose 100 70 - 115 mg/dL [facility] Calcium 9.8 8.4 - 10.2 mg/dL [facility] Anion Gap 20(H) 8 - 18 [facility] BUN/Creatinine Ratio 7 7 - 23 [facility] Osmolality Calculated 275 270 - 300 mOsm/kg [facility] eGFR >60 >60 mL/min/1.7 3 m2 [facility] Blood specimen (specimen) BLOOD SPECIMEN / Unknown 05/07/2015 4:56 PM ROTARY DRILLER PROSPECTING 05/07/2015 5:29 PM ROTARY DRILLER PROSPECTING Jessie Nolasco MD LAB - CHEMISTRY MARSHAL MEDEROS [facility] [address] [place] [address] * (ABNORMAL) CBC W AUTO DIFFERENTIAL (05/07/2015 4:56 PM ROTARY DRILLER PROSPECTING) WBC 7.6 3.5 - 10.5 10? 3 /uL [facility] RBC 4.50 4.30 - 5.70 10? 6 /uL [facility] Hemoglobin 15.5 13.5 - 17.5 g/dL [facility] Hematocrit 43.1 39.0 - 50.0 % [facility] MCV 95.8 81.0 - 97.0 fL [facility] MCH 34.4(H) 28.0 - 34.0 pg [facility] MCHC 36.0 32.0 - 36.0 g/dL [facility] Platelet Count 249 150 - 400 10? 3 /uL [facility] RDW-SD 41.9 36.0 - 50.0 fL [facility] RDW-CV 12.0 11.2 - 14.8 % [facility] MPV 10.4 9.3 - 12.8 fL [facility] nRBC Absolute 0.00 0 10? 3 /uL [facility] nRBC Auto 0.0 0 /100 WBC [facility] Neutrophils % 62.7 35.0 - 70.0 % [facility] Lymphocytes % 29.0 19.7 - 55.1 % [facility] Monocytes % 5.6 3.0 - 15.0 % [facility] Eosinophils % 2.4 0.0 - 6.0 % [facility] Basophil % 0.3 0.0 - 1.5 % [facility] Neutrophils Absolute 4.8 1.6 - 7.0 10? 3 /uL [facility] Lymphocyte Absolute 2.2 0.8 - 2.9 10? 3 /uL [facility] Monocytes Absolute 0.43 0.14 - 0.66 10? 3 /uL [facility] Eosinophils Absolute 0.18 0.00 - 0.22 10? 3 /uL [facility] Basophils Absolute 0.02 0.00 - 0.06 10? 3 /uL [facility] Immature Granulocytes % 0.1 0.0 - 1.0 % [facility] Blood specimen (specimen) BLOOD SPECIMEN / Unknown 05/07/2015 4:56 PM ROTARY DRILLER PROSPECTING 05/07/2015 5:29 PM ROTARY DRILLER PROSPECTING Jessie Nolasco MD LAB - HEMATOLOGY ORD ERABLES Performing Organization Address City/State/[facility] Co de Phone Number [address] [phone] * (ABNORMAL) URINALYSIS REFLEX TO MICROSCOPIC NO CULTURE (05/07/2015 4:56 PM ROTARY DRILLER PROSPECTING) Color UA Yellow Straw, Yellow, Colorless, Light Yellow [facility] Clarity UA Clear Clear [facility] Specific [place] UA 1.004 1.001 - 1.030 [facility] pH UA 5.0 5.0 - 8.0 [facility] Protein UA Negative <=20 mg/dL [facility] Glucose UA Negative Negative mg/dL [facility] Ketone UA Negative Negative mg/dL [facility] Bilirubin UA Negative Negative mg/dL [facility] Blood UA Negative Negative [facility] Nitrite UA Negative Negative [facility] Leukocyte Esterase Negative Negative [facility] Urobilinogen UA <2.0 <2.0 mg/dL [facility] RBC UA 1 0 - 8 /HPF [facility] WBC UA <1 0 - 2 /HPF [facility] Mucus UA Rare(A) None /LPF [facility] Urine specimen (specimen) 05/07/2015 4:56 PM ROTARY DRILLER PROSPECTING 05/07/2015 5:29 PM ROTARY DRILLER PROSPECTING Jessie Nolasco MD LAB - URINALYSIS ORD ERABLES Performing Organization Address City/[facility]/ZIP Co de Phone Number [address] [phone] * GLUCOSE - POINT OF CARE (AMB) [facility] (05/07/2015 4:56 PM ROTARY DRILLER PROSPECTING) Glucose POCT 108 mg/dL [facility] Capillary blood specimen (specimen) 05/07/2015 4:56 PM ROTARY DRILLER PROSPECTING Jessie Nolasco MD LAB - POINT OF CARE ORDERABLES Performing Organization Address [facility] Co de Phone Number [facility] * GLUCOSE ACCUCHECK (05/07/2015 4:55 PM ROTARY DRILLER PROSPECTING) Glucose, Fingerstick 108 70-115mg/d L mg/dL [facility] Comment:Prop And Scenery Maker: Ran mackey 05/07/2015 4:55 PM ROTARY DRILLER PROSPECTING Zulma Quijano MD LAB - CHEMISTRY MARSHAL MEDEROS Performing Organization Address [facility] Co de Phone Number [facility] documented in this encounter Visit Diagnoses Diagnosis Convulsions (HCC) Alcohol abuse with intoxication (HCC) Acute alcoholic intoxication in alcoholism, unspecified documented in this encounter
--- OUTSIDE RECORDS SUMMARY | 2024-06-08 05:49 | XMS_ITS | Encounter Summary ---
Author Organization [facility] Address [address] [facility] [place], [place] [address] [place] [address] Care Team Providers Care Domestic Maid Name Role Phone Frank Toure MD Unavailable Joyce Luevano NP Primary Care Provider Boa ble Encounter Details Date Type Department Care Team (Late st Contact Info) Description 04/12/2022 Hosp Visit [facility] Occupational Therapy [address] [place] [address] Naa Joiner OT Social History Tobacco Use Types Packs/Day Years Used Date Smoking Tobacco: Former Cigarettes Smokeless Tobacco: Never Alcohol Use Standard Drinks/Week Comments Not Currently 0 (1 standard drink = 0.6 oz pur e alcohol) Sex and Gender Information Value Date Recorded Sex Assigned at Not on file Legal Sex Male 10:23 PM CDT Gender Identity Not on file Sexual Orientation Not on file documented as of this encounter Functional Status * RETIRED Are you deaf or do you have serious difficulty hearing Answer Date of Assessment Author Status No 12/04/2018 2:03 PM CDT Activ e * RETIRED Are you blind or do you have serious difficulty seeing, even when wearing glasses? Answer Date of Assessment Author Status No 12/04/2018 2:03 PM CDT Activ e * Do you have serious difficulty walking or climbing stairs? Answer Date of Assessment Author Status Yes 12/04/2018 2:03 PM CDT Anahi Jernigan RN Active * Do you have difficulty dressing or bathing? Answer Date of Assessment Author Status Yes 12/04/2018 2:03 PM Anahi Chavarria RN Active * Because of a physical, mental, or emotional condition, do you have difficulty doing errands alone such as visiting a doctor's office or shopping? Answer Date of Assessment Author Status Yes 12/04/2018 2:03 PM Anahi Chavarria RN Active documented as of this encounter Mental Status * Because of a physical, mental, or emotional condition, do you have serious difficulty concentrating, remembering, or making decisions? Answer Entry Date Author Status No 12/04/2018 2:03 PM Anahi Chavarria RN Active documented in this encounter Progress Notes * Naa Brice OT - 04/12/2022 10:47 AM CST [facility] [place] Date of : 1960 Diagnosis: L hand pain Bi Tabor failed to return to skilled Occupational Therapy services due to medical complications. Please refer to last treatment note for current status. Patient will be discharged from Occupational Therapy at this time. Will require new MD orders if wishing to return to therapy. Plan: Unplanned discharge from Outpatient Occupational Therapy. NAA BRICE OT Cosigned by Joyce Luevano NP at 05/18/2022 11:49 PM LICENSED PRACTICAL NURSE CLINIC NURSE NSED PRACTICAL NURSE CLINIC NURSE NSED PRACTICAL NURSE CLINIC NURSE documented in this encounter Plan of Treatment Not on file documented as of this encounter Visit Diagnoses Not on filedocumented in this encounter Care Teams Domestic Maid Relationship Specialty Start Date End Date Joyce Luevano NP [address] [place] [address] PCP - General NURSE PRACTITIONER 01/14/20 10/26/23 Frank Toure MD [address] [place] [address] Chivo Ground Worker CARDIOVASCULAR DISEASE 05/30/16 documented as of this encounter
--- OUTSIDE RECORDS SUMMARY | 2024-06-08 05:49 | XMS_ITS | Encounter Summary ---
Author Organization [facility] Address [address] [facility]. [place], [place] [address] [place] [address] Care Team Providers Care Channeler Name Role Phone Frank Toure MD Unavailable Joyce Luevano NP Primary Care Provider Unavaila ble Reason for Visit * Reason Comments Image (SCAN) Encounter Details Date Type Department Care Team (Latest Contact Info) Description 11/17/2022 Scan HEALTH INFO SRVCS Scanned, Doc Med Group Image (SCAN) Social History Tobacco Use Types Packs/Day Years [...] Chavarria RN Active documented in this encounter Plan of Treatment Not on file documented as of this encounter Procedures Procedure Name Priority Date/Time Associated Diagnosis Comments IMAGE GENERIC 11/17/2022 documented in this encounter Results * IMAGE GENERIC (11/17/2022) Anatomical Region Laterality Modality Other 11/17/2022 us Doc Med Group Scanned SCANNING Final Resu lt documented in this encounter Visit Diagnoses Not on filedocumented in this encounter Care Teams Channeler Relationship Specialty Start Date End Date Joyce Luevano NP [address] [place] [address] PCP - General NURSE PRACTITIONER 01/14/20 10/26/23 Frank Toure MD [address] [place] [address] Chivo Lasting Floorworker CARDIOVASCULAR DISEASE 05/30/16 documented as of this encounter
--- OUTSIDE RECORDS SUMMARY | 2024-06-08 05:49 | XMS_ITS | Encounter Summary ---
Author Organization [facility] Address [address] [facility] [place] [address] [place] [address] Care Team Providers Care Jewel Corner Brushing Machine Operator Name Role Phone Frank Toure MD Unavailable Joyce Luevano NP Primary Care Provider Unavaila Marielena Adame MD Primary Care Provider [phone] Encounter Details Date Type Department Care Team (Late st Contact Info) Description 03/09/2022 MindSet Rxt Message Enc [facility] Medical Group Family Medicine - [address] [phone] Joyce Luevano, BIOMEDICAL ENGINEERING INTER[employer] Update on [facility] Social History Tobacco Use Types Packs/Day Years [...] suspected to have Coronavirus/COVID-19? No / Unsure 03/04/2022 2:55 PM CDT documented as of this encounter [...] PM CDT Anahi Jernigan RN Active * Because of a physical, mental, or emotional condition, do you have difficulty doing errands alone such as visiting a doctor's office or shopping? Answer Date of Assessment Author Status Yes 12/04/2018 2:03 PM CDT Anahi Jernigan RN Active documented as of this encounter Mental Status * Because of a physical, mental, or emotional condition, do you have serious difficulty concentrating, remembering, or making decisions? Answer Entry Date Author Status No 12/04/2018 2:03 PM CDT Anahi Jernigan RN Active documented in this encounter Progress Notes * Yonatan Rodriguez RN - 03/09/2022 10:09 AM CDT FYI * Yonatan Rodriguez RN - 03/09/2022 8:55 AM CDT See note. Thanks documented in this encounter Plan of Treatment Not on file documented as of this encounter Visit Diagnoses Not on filedocumented in this encounter Care Teams Jewel Corner Brushing Machine Operator Relationship Specialty Start Date End Date Joyce Luevano NP [address] [place] [address] PCP - General NURSE PRACTITIONER 01/14/20 10/26/23 Marielena Smallwood MD [address] [place] [address] PCP - General FAMILY PRACTICE 10/27/23 Frank Toure MD [address] [place] [address] Chivo Director Of Acquisitions CARDIOVASCULAR DISEASE 05/30/16 documented as of this encounter
--- OUTSIDE RECORDS SUMMARY | 2024-06-08 05:49 | XMS_ITS | Encounter Summary ---
Author Organization [facility] Address [address] [facility] [place], [place] [address] [place] [address] Care Team Providers Care Photoengraving Proofer Apprentice Name Role Phone Frank Toure MD Unavailable Joyce Luevano NP Primary Care Provider Boa ble Encounter Details Date Type Department Care Team (Latest Contact Info) Description 06/07/2022 Travel Social History Tobacco Use Types Packs/Day [...] suspected to have Coronavirus/COVID-19? No / Unsure 06/07/2022 12:03 PM GREENHOUSE MANAGER documented as of this encounter Functional Status [...] on filedocumented in this encounter Care Teams Photoengraving Proofer Apprentice Relationship Specialty Start Date End Date Joyce Luevano NP [address] [place] [address] PCP - General NURSE PRACTITIONER 01/14/20 10/26/23 Frank Toure MD [address] [place] [address] Chivo Glass Blowing Instructor CARDIOVASCULAR DISEASE 05/30/16 documented as of this encounter
--- OUTSIDE RECORDS SUMMARY | 2024-06-08 05:49 | XMS_ITS | Encounter Summary ---
Author Organization [facility] Address [address] [facility] [place], [place] [address] [place] [address] Care Team Providers Care Manager Foreign Name Role Phone Frank Toure MD Unavailable Joyce Luevano NP Primary Care Provider Unavaila ble Encounter Details Date Type Department Care Team (Latest Contact Info) Description 06/28/2022 Scan HEALTH INFO SRVCS Scanned, Doc Med Group Social History Tobacco Use Types Packs/Day Years [...] suspected to have Coronavirus/COVID-19? No / Unsure 06/17/2022 10:38 AM A OPERATOR documented as of this encounter Functional Status [...] 2:03 PM Anahi Chavarria RN Active * Do you have difficulty [...] filedocumented in this encounter Care Teams Manager Foreign Relationship Specialty Start Date End Date Joyce Luevano NP [address] [place] [address] PCP - General NURSE PRACTITIONER 01/14/20 10/26/23 Frank Toure MD [address] [place] [address] Chivo Cigar Tobacco Processing Supervisor CARDIOVASCULAR DISEASE 05/30/16 documented as of this encounter
--- OUTSIDE RECORDS SUMMARY | 2024-06-08 05:49 | XMS_ITS | Encounter Summary ---
Author Organization [facility] Address [address] [facility] [place] [address] [place] [address] Care Team Providers Care Lead Quality Technician Name Role Phone Frank Toure MD Unavailable Joyce Luevano NP Primary Care Provider Unavaila ble Reason for Referral * Imaging (Routine) - Closed Specialty Diagnoses / Procedures Referred By Anabella dan Referred To Contact RADIOLOGY Diagnoses Ulcer of left foot, unspecified ulcer stage ([facility]/HCC HHS/HCC) Procedures XR FOOT LT 3V Joyce Luevano NP [address] [place] [address] Referral ID Status Reason Start Date Expiration Date Visits Re quested Visits Authorized [id number] Closed 03/04/2022 03/04/2023 1 1 * Surgical (Urgent) - Closed Specialty Diagnoses / Procedures Referred By Anabella dan Referred To Contact VASCULAR SURGERY Diagnoses PAD (peripheral artery disease) ([facility]/HCC) Ulcer of left foot, unspecified ulcer stage (CMS/HCC HHS/HCC) Procedures OFFICE/OUTPT VISIT,NEW,LEVL III OFFICE/OUTPT VISIT,NEW,LEVL IV OFFICE/OUTPT VISIT,NEW,LEVL V OFFICE/OUTPT VISIT,EST,LEVL III OFFICE/OUTPT VISIT,EST,LEVL IV OFFICE/OUTPT VISIT,EST,LEVL V Joyce Luevano NP [address] [place] [address] [facility] [address] [place] [id number] Phone: tel: fax: Referral ID Status Reason Start Date Expiration Date V isits Requested Visits Authorized [id number] Closed Specialty Services 03/04/2022 03/04/2023 99 99 Reason for Visit * Reason Comments Foot Pain Pt has a sore on the side of the left foot where the base of the great toe meeds the ball of the foot. She states she has tried to use antibiotic ointment on it at the care home and they stopped it and started using betadine and something else. The area is still painful and she thinks the toenail is turning dark color. Encounter Details Date Type Department Care Team (Late st Contact Info) Description 03/04/2022 3:00 PM CDT Office Visit [facility] Family Medicine [address] [address] Joyce Luevano NP Foot Pain (Pt has a sore on the side of the left foot where the base of the great toe meeds the ball of the foot. She states she has tried to use antibiotic ointment on it at the care home and they stopped it and started using betadine and something else. The area is still painful and she thinks the toenail is turning dark color.) Social History Tobacco Use Types Packs/Day Years Used Date Smoking Tobacco: Former Cigarettes Smokeless Tobacco: Never Tobacco Cessation:Counseling Given: No Alcohol Use Standard Drinks/Week Comments Not Currently [...] Sign Reading Time Taken Comments Blood Pressure 138/84 03/04/2022 3:13 PM CDT Pulse 100 03/04/2022 3:13 PM CDT Temperature 35.9 ??C (96.7 ??F) 03/04/2022 3:13 PM CD T Respiratory Rate 16 03/04/2022 3:13 PM CDT Oxygen Saturation 100% 03/04/2022 3:13 PM CDT Inhaled Oxygen Concentration - - Weight 62.1 kg (137 lb) 03/04/2022 3:13 PM CDT P t reported. Height 180.3 cm (5' 11 ) 03/04/2022 3:13 PM CDT Body Mass Index 19.11 03/04/2022 3:13 PM CDT documented in this encounter Functional Status * RETIRED Are [...] documented in this encounter Progress Notes * Joyce Luevano NP - 03/04/2022 3:00 PM CDT Images from the original note were not included. OFFICE FOLLOW UP NOTE Encounter Date: 03/11/2022 Chief Complaint: 62-year-old male presents for Foot Pain (Pt has a sore on the side of the left foot where the base of the great toe meeds the ball of the foot. She states she has tried to use antibiotic ointment on it at the care home and they stopped it and started using betadine and something else. The area is still painful and she thinks the toenail is turning dark color.) . Comes in for follow up Sister with him left foot pain X 3 weeks Sore to lateral aspect of great toe Skin turning black Has history of PAD Has has vascular procedure done on left foot several years ago Area Is painful to touch Feels better when in dependent position Plan Xray and labs today Urgent vascular referral placed ROS See hpi Patient Active Problem List Diagnosis ??? Seizure (CMS/HCC) ??? Osteoporosis ??? UTI (urinary tract infection) ??? Encephalopathy acute ??? Cerebrovascular accident (CVA) due to thrombosis of right posterior cerebral artery (CMS/HCC) ??? Hyperlipidemia ??? Hypertension ??? Seizure (CMS/HCC) ??? Encephalopathy ??? Headache, unspecified headache type Past Medical History: Diagnosis Date ??? Arthritis ??? Dysphagia ??? HLD (hyperlipidemia) ??? Hypertension ??? Seizures (CMS/HCC) ??? Seizures (CMS/HCC) ??? Stroke (CMS/HCC) lt side weakness History Smoking Status ??? Former Smoker ??? Packs/day: 0.50 Smokeless Tobacco ??? Never Used Social History Substance and Sexual Activity Alcohol Use Not Currently Social History Substance and Sexual Activity Drug Use No Family History Family history unknown: Yes Immunization History Administered Date(s) Administered ??? Influenza 04/23/2015, 03/14/2019, 03/07/2020, 03/16/2021 ??? Influenza Adult (Generic) 03/19/2015, 06/23/2016, 06/15/2017, 03/24/2018 ??? PFIZER COVID-19 (ORIGINAL FORMULATION, PURPLE CAP), MRNA, LNP-S, PF, 30 MCG/0.3 ML DOSE 06/11/2020, 07/02/2020, 04/06/2021 ??? Pneumococcal (Pneumovax 23) 02/07/2015, 08/13/2015, 02/04/2016 ??? Tdap (Boostrix) 06/06/2017 ??? Tdap (Generic) 03/23/2017 ??? Tuberculin 03/18/2021 Current Outpatient Medications Medication Sig Dispense Refill ??? acetaminophen 325 MG tablet Take 1 tablet (325 mg total) by mouth every 8 (eight) hours as needed for Pain. 90 tablet 2 ??? amLODIPine 5 MG tablet Take 1 tablet (5 mg total) by mouth daily. 90 tablet 1 ??? ASPIRIN 81 OR Take 81 mg by mouth daily. ??? ATORVASTATIN 40 MG tablet TAKE 1 TABLET BY MOUTH EVERY DAY 90 tablet 0 ??? Cholecalciferol 25 MCG (1000 UT) Chew Tab Chew 1,000 Units by mouth daily. ??? cloBAZam (ONFI) 10 MG tablet ??? divalproex EC 500 MG tablet Take 1 tablet (500 mg total) by mouth 2 (two) times daily. 60 tablet 0 ??? folic acid 1 MG tablet Take 1 tablet by mouth daily. ??? ibuprofen 600 MG tablet Take 600 mg by mouth every 8 (eight) hours as needed. ??? Lacosamide 200 MG Tab TAKE 1 TABLET BY MOUTH TWICE A DAY ??? levETIRAcetam 1000 MG tablet Take 2 tablets by mouth every 12 (twelve) hours. ??? Multiple Vitamin (ONE DAILY MULTIVITAMIN ADULT) Tab Take 1 tablet by mouth daily. ??? ondansetron (ZOFRAN-ODT) 4 MG disintegrating tablet ??? polyethylene glycol (GLYCOLAX) 17 GM/SCOOP powder Take 17 g by mouth daily. ??? tamsulosin (FLOMAX) 0.4 MG Cap Take 1 capsule (0.4 mg total) by mouth daily. 90 capsule 1 ??? vitamin B-1 100 MG Tab Take 1 tablet (100 mg total) by mouth daily. 30 tablet 0 ??? Cyanocobalamin 1000 MCG Cap Take 1 mg by mouth daily. ??? diazePAM, 15 MG Dose, (VALTOCO 15 MG DOSE) 2 x 7.5 MG/0.1ML Liquid Therapy Pack 2 sprays by Nasal route as needed. 1 spray each nostril during a seizure 1 each 0 ??? divalproex EC 250 MG tablet Take 1 tablet by mouth every 12 (twelve) hours. ??? Lacosamide 200 MG Tab Take 200 mg by mouth 2 (two) times daily. ??? vitamin D3, cholecalciferol, 1000 UNIT Tab tablet Take 1 tablet by mouth daily. No current facility-administered medications for this visit. Allergies Allergen Reactions ??? Clonazepam Hallucinations hallucinations Objective: Filed Vitals: 03/04/22 1513 BP: 138/84 Pulse: 100 Resp: 16 Temp: 96.7 ??F (35.9 ??C) TempSrc: Temporal SpO2: 100% Weight: 62.1 kg (137 lb) Height: 5' 11 (1.803 m) Body mass index is 19.11 kg/m??. No LMP for male patient. Physical Exam Cardiovascular: Rate and Rhythm: Normal rate and regular rhythm. Heart sounds: Normal heart sounds. Pulmonary: Effort: Pulmonary effort is normal. Breath sounds: Normal breath sounds. Skin: General: Skin is warm and dry. Comments: Left foot with aprox 2cm necrotic appearing ulcer Second and third toes black Bilateral pedal pulses 1+ Neurological: Mental Status: He is alert. Comments: In wheel chair Assessment: Encounter Diagnose(s) ICD-10-CM ICD-9-CM 1. PAD (peripheral artery disease) ([facility]) I73.9 443.9 Ambulatory referral to Vascular Surgery (OTHER) 2. Ulcer of left foot, unspecified ulcer stage ([facility]) L97.529 707.15 Ambulatory referral to Vascular Surgery (OTHER) XR FOOT LT 3V CBC W/DIFF AUTOMATED XR FOOT LT 3V Plan: Bi was seen today for foot pain. Diagnoses and all orders for this visit: PAD (peripheral artery disease) ([facility]) - Ambulatory referral to Vascular Surgery (OTHER) Ulcer of left foot, unspecified ulcer stage ([facility]) - Ambulatory referral to Vascular Surgery (OTHER) - XR FOOT LT 3V; Future - CBC W/DIFF AUTOMATED; Future - XR FOOT LT 3V Discussed plan of care with patient. Patient verbalized understanding. [place]-ANGEL documented in this encounter Plan of Treatment Scheduled Orders Name Type Priority Associated Diagnoses Orde r Schedule XR FOOT LT 3V Imaging Routine Ulcer of left foot, unspecified ulcer stage ([facility]) Expected: 03/04/2022, Expires: 03/04/2023 Scheduled Referrals Name Type Priority Associated Diagnoses Orde r Schedule Ambulatory referral to Vascular Surgery (OTHER) Referral Routine PAD (peripheral artery disease) Ulcer of left foot, unspecified ulcer stage ([facility]) Ordered: 03/04/2022 documented as of this encounter Visit Diagnoses Diagnosis PAD (peripheral artery disease) ([facility]/HCC)- Primary Peripheral vascular disease, unspecified Ulcer of left foot, unspecified ulcer stage ([facility] HHS/[facility]) documented in this encounter Care Teams Lead Quality Technician Relationship Specialty Start Date End Date Joyce Luevano NP [address] [place] [address] PCP - General NURSE PRACTITIONER 01/14/20 10/26/23 Frank Toure MD [address] [place] [address] [employer] Distance Education Coordinator CARDIOVASCULAR DISEASE 05/30/16 documented as of this encounter
--- OUTSIDE RECORDS SUMMARY | 2024-06-08 05:49 | XMS_ITS | Encounter Summary ---
Author Organization [facility] Address [facility] [facility] [place] [address] [place] [address] Care Team Providers Care Raw Stock Drier Tender Name Role Phone Frank Toure MD Unavailable Joyce Luevano HORSEBACK EXCAVATOR Primary Care Provider Unavaila ble Reason for Visit * Reason Onset Date Comments After Hours Page 06/27/2022 Encounter Details Date Type Department Care Team (Late st Contact Info) Description 06/27/[address] [facility] Family Medicine [address] [address] Hernesto Gonzalez MD After Hours Page Social History Tobacco Use Types Packs/Day Years [...] Coronavirus/COVID-19? No / Unsure 06/17/2022 10:38 AM HAND WOOD SANDER documented as of this encounter Functional Status [...] Assessment Author Status Yes 12/04/2018 2:03 PM KASIT Anahi Jernigan RN Active documented as of this encounter Mental Status * Because of a physical, mental, or emotional condition, do you have serious difficulty concentrating, remembering, or making decisions? Answer Entry Date Author Status No 12/04/2018 2:03 PM KASIT Anahi Jernigan RN Active documented in this encounter Progress Notes * Joyce Luevano NP - 06/28/2022 2:19 PM CST noted WOOD SANDER * Hernesto Gonzalez MD - 06/27/2022 8:19 PM CST Received call from after-hours line [facility]. Skilled nurse facility calling guarding patient. He has had an increase in O2 requirement-now 4 L nasal cannula satting i92-94%. Baseline is 97-99% on room air. SNF nurse says that on auscultation his lungs are noisy throughout. Recommended immediate emergency evaluation. EMS en route. WOOD SANDER documented in this encounter Plan of Treatment Not on file documented as of this encounter Visit Diagnoses Not on filedocumented in this encounter Care Teams Raw Stock Drier Tender Relationship Specialty Start Date End Date Joyce Luevano NP [address] [place] [address] PCP - General NURSE PRACTITIONER 01/14/20 10/26/23 Frank Toure MD [address] [place] [address] [place] Psych Assistant CARDIOVASCULAR DISEASE 05/30/16 documented as of this encounter
--- OUTSIDE RECORDS SUMMARY | 2024-06-08 05:49 | XMS_ITS | Encounter Summary ---
Author Organization [facility] Address [address] [facility]. [place], [place] [address] [place] [address] Care Team Providers Care Soft Work Cigar Machine Operator Name Role Phone Frank Toure MD Unavailable Joyce Luevano NP Primary Care Provider Unavaila ble Encounter Details Date Type Department Care Team (Latest Contact Info) Description 06/07/2022 Scan HEALTH INFO SRVCS Scanned, Doc Med [...] Coronavirus/COVID-19? No / Unsure 06/17/2022 10:38 AM GLAZIER APPRENTICE documented as of this encounter Functional Status [...] on filedocumented in this encounter Care Teams Soft Work Cigar Machine Operator Relationship Specialty Start Date End Date Joyce Luevano NP [address] [place] [address] PCP - General NURSE PRACTITIONER 01/14/20 10/26/23 Frank Toure MD [address] [place] [address] [employer] Medical Delivery Driver CARDIOVASCULAR DISEASE 05/30/16 documented as of this encounter
--- OUTSIDE RECORDS SUMMARY | 2024-06-08 05:49 | XMS_ITS | Encounter Summary ---
Author Organization [facility] Address [facility] [facility] [place], [place] [address] [place] [address] Care Team Providers Care Dough Mixer Helper Name Role Phone Frank Toure MD Unavailable Joyce Luevano GRINDER OPERATOR AUTOMATIC Primary Care Provider Unavaila ble Reason for Visit * Reason Onset Date Comments Information 03/05/2022 Encounter Details Date Type Department Care Team (Late st Contact Info) Description 03/05/2022 Telephone [facility] Family Medicine - [address] [address] Joyce Luevano, BOUCHRA Information Social History Tobacco Use Types Packs/Day Years [...] Coronavirus/COVID-19? No / Unsure 06/07/2022 12:03 PM PROJECT MGR documented as of this encounter Functional Status [...] Progress Notes * Joyce Luevano NP - 03/05/2022 11:45 AM CDT Noted * Yonatan Rodriguez RN - 03/05/2022 10:22 AM CDT FYI * Delilah Cloud - 03/05/2022 10:18 AM CDT Patient's sister called to let us know that she took her brother today to [facility] Emergency room, because of the pain in his left foot. documented in this encounter Plan of Treatment Not on file documented as of this encounter Visit Diagnoses Not on filedocumented in this encounter Care Teams Dough Mixer Helper Relationship Specialty Start Date End Date Joyce Luevano NP [address] [place] [address] PCP - General NURSE PRACTITIONER 01/14/20 10/26/23 Frank Toure MD [address] [place] [address] Chivo Choir Singer CARDIOVASCULAR DISEASE 05/30/16 documented as of this encounter
--- OUTSIDE RECORDS SUMMARY | 2024-06-08 05:49 | XMS_ITS | Encounter Summary ---
Author Organization [facility] Address [address] [place] [address] [place] [address] Care Team Providers Care Water Control Supervisor Name Role Phone Frank Toure MD Unavailable Joyce Luevano NP Primary Care Provider Unavaila Marielena Adame MD Primary Care Provider [phone] Encounter Details Date Type Department Care Team (Late st Contact Info) Description 03/13/2022 SeatKarmat Message Enc [facility] Family Medicine - [address] [address] Joyce Luevano, BOUCHRA Bi Tabor Update Social History Tobacco Use Types Packs/Day [...] documented in this encounter Progress Notes * Bautista Whitman MA - 03/15/2022 7:49 AM CDT See below. * Bautista Whitman MA - 03/15/2022 7:48 AM CDT Thank you for the update, I will get this over to Erica. Adamson documented in this encounter Plan of Treatment Not on file documented as of this encounter Visit Diagnoses Not on filedocumented in this encounter Care Teams Water Control Supervisor Relationship Specialty Start Date End Date Joyce Luevano NP [facility] [place] [address] PCP - General NURSE PRACTITIONER 01/14/20 10/26/23 Marielena Smallwood MD [address] [place] [address] PCP - General FAMILY PRACTICE 10/27/23 Frank Toure MD [address] [place] [address] [employer] Billet Cutter CARDIOVASCULAR DISEASE 05/30/16 documented as of this encounter
--- OUTSIDE RECORDS SUMMARY | 2024-06-08 05:49 | XMS_ITS | Encounter Summary ---
Author Organization [facility] Address [address] [facility]. [place], [place] [address] [place] [address] Care Team Providers Care Sap Plant Maintenance Consultant Name Role Phone Frank Toure MD Unavailable Joyce Luevano NP Primary Care Provider Boa ble Encounter Details Date Type Department Care Team (Latest Contact Info) Description 06/17/2022 Travel Social History Tobacco Use Types Packs/Day [...] Coronavirus/COVID-19? No / Unsure 06/17/2022 10:38 AM AUTOMATION ENGINEERING MANAGER documented as of this encounter Functional [...] on filedocumented in this encounter Care Teams Sap Plant Maintenance Consultant Relationship Specialty Start Date End Date Joyce Luevano NP [address] [place] [address] PCP - General NURSE PRACTITIONER 01/14/20 10/26/23 Frank Toure MD [address] [place] [address] [employer] Cashier Host/Hostess CARDIOVASCULAR DISEASE 05/30/16 documented as of this encounter
--- OUTSIDE RECORDS SUMMARY | 2024-06-08 05:49 | XMS_ITS | Encounter Summary ---
Author Organization [facility] Address [address] [facility] [place] [address] [place] [address] Care Team Providers Care Supervisor Mechanic Boilermaking Name Role Phone Farnk Toure MD Unavailable Joyce Luevano CHEESE BLENDER Primary Care Provider Unavaila ble Reason for Visit * Reason Onset Date Comments Information 08/20/2022 Encounter Details Date Type Department Care Team (Late st Contact Info) Description 08/20/2022 Telephone [facility] Family Medicine - [address] [address] Joyce Luevano NP Information Social History Tobacco Use Types Packs/Day [...] Progress Notes * Yonatan Rodriguez RN - 08/20/2022 2:16 PM CDT Updated Care Everywhere and it looks like [facility] was able to get patient back to [facility] per ER note. Adriane informed. Advised her to make sure before patient leaves [place] that they either have an order or an order is given to them regarding the cough assist as it will need specific diagnosis and amount of coughs, breaths, etc. She verbalized understanding. Also called [facility] and they have the cough assist, but they do not take [employer] insurance. Did find an online form for [employer], but would need hospital to fill out with specifications. * Yonatan Rodriguez RN - 08/20/2022 1:41 PM CDT I called Adriane to see exactly was was needed. She said that the correction the patient was discharged to sent patient to [facility] as they did not have the cough assist machine he is needing. She states he has a trach and they used a suction machine that stimulated a cough to help him get the stuff up.Informed patient that it looks like a lot of these cough machines are ones that would be purchased through a hospital, not for patients to buy. She states [facility] new he needed it but didn'tsend him home with one so the usp discharged him for an unsafe discharge. Informed her that when patients are discharged with any accommodations needed, the hospital social worker clinical or care services manager gets in contact with the usp to make sure they can accommodate for patient's needs. Asked Adriane if it was just a suction device they were needing and she states it was also a cough machine. Adriane then stated, Can you call me back once you find out the information? I am about to talk to the nurse. Assumed patient was stating she was about to talk to the [facility] nurse so I informed her to ask them about what may be needed. She states she is only talking to the usp nurse. Not sure how to proceed. Thanks * Ramya Ernst - 08/20/2022 1:22 PM CDT Pts sister Adriane called and stated that pt was discharged from [facility] in [place] and sent him to [facility]. [facility] don't have a cough assist machine at the facility for pt. [facility] will not take pt back and it is a unsafe discharge. Pt was then transferred to [facility] by ambulance and pt is the ER now to see where pt can be transported.. Adriane is wanting to know where she can take pt that has a cough machine for pt or where she can buy or rent a machine for pt Adriane is wanting to know what she can do.. documented in this encounter Plan of Treatment Not on file documented as of this encounter Visit Diagnoses Not on filedocumented in this encounter Care Teams Supervisor Mechanic Boilermaking Relationship Specialty Start Date End Date Joyce Luevano NP [address] [place] [address] PCP - General NURSE PRACTITIONER 01/14/20 10/26/23 Frank Toure MD [address] [place] [address] [employer] Parts Counter Associate CARDIOVASCULAR DISEASE 05/30/16 documented as of this encounter
--- OUTSIDE RECORDS SUMMARY | 2024-06-08 05:49 | XMS_ITS | Encounter Summary ---
Author Organization [facility] Address [address] [facility]. [place], [place] [address] [place] [address] Care Team Providers Care Teletypesetter Name Role Phone Frank Toure MD Unavailable Joyce Luevano NP Primary Care Provider Unavaila ble Reason for Referral * Occupational Therapy (Routine) - Closed Specialty Diagnoses / Procedures Referred By Contact Referred To Contact Occupational Therapy / [facility] Occupational Therapy Diagnoses History of above-knee amputation of left lower extremity (CMS/HCC HHS/HCC) Generalized weakness Procedures OFFICE/OUTPT VISIT,NEW,LEVL III OFFICE/OUTPT VISIT,NEW,LEVL IV OFFICE/OUTPT VISIT,NEW,LEVL V OFFICE/OUTPT VISIT,EST,LEVL III OFFICE/OUTPT VISIT,EST,LEVL IV OFFICE/OUTPT VISIT,EST,LEVL V Joyce Luevano NP [address] Occupational Therapy [address] [place] [phone] Phone: tel: fax: Referral ID Status Reason Start Date Expiration Date V isits Requested Visits Authorized [id number] Closed Specialty Services 05/30/2022 05/29/2023 12 12 UGATOR OPERATOR HELPER * Physical Medicine (Routine) - Closed Specialty Diagnoses / Procedures Referred By Contac t Referred To Contact PHYSICAL THERAPY / [facility] Physical Therapy Diagnoses History of above-knee amputation of left lower extremity ([facility]/HCC HHS/HCC) Generalized weakness Procedures OFFICE/OUTPT VISIT,NEW,LEVL III OFFICE/OUTPT VISIT,NEW,LEVL IV OFFICE/OUTPT VISIT,NEW,LEVL V OFFICE/OUTPT VISIT,EST,LEVL III OFFICE/OUTPT VISIT,EST,LEVL IV OFFICE/OUTPT VISIT,EST,LEVL V Joyce Luevano NP [address] Physical Therapy [address] [place] [address] Phone: tel: fax: Referral ID Status Reason Start Date Expiration Date V isits Requested Visits Authorized [id number] Closed Physical Therapy 05/30/2022 05/29/2023 12 12 UGATOR OPERATOR HELPER * Consultation (Routine) - Closed Specialty Diagnoses / Procedures Referred By Anabella dan Referred To Contact PODIATRY Diagnoses Toenail deformity Procedures OFFICE/OUTPT VISIT,NEW,LEVL III OFFICE/OUTPT VISIT,NEW,LEVL IV OFFICE/OUTPT VISIT,NEW,LEVL V OFFICE/OUTPT VISIT,EST,LEVL III OFFICE/OUTPT VISIT,EST,LEVL IV OFFICE/OUTPT VISIT,EST,LEVL V Joyce Luevano NP [address] [facility] [address] [address] Phone: tel: fax: Referral ID Status Reason Start Date Expiration Date V isits Requested Visits Authorized [id number] Closed Specialty Services 06/07/2022 07/08/2023 99 999 UGATOR OPERATOR HELPER Reason for Visit * Reason Comments Hospital Follow Up Pt F/U on medication issue and was sent to [facility] these was a mix up with the depakote medication and the nurse wanted to make sure he would be taken care of if seizure activity started. to possibly avoid seizure activity. Second time time he went for oxygen issue and aspiration pneumonia. Went to [facility]. Angel with [employer] is here with them as well to giveinformation for a prosthetic. Encounter Details Date Type Department Care Team (Latest Contact Info) Description 06/07/2022 12:20 PM CORRUGATOR OPERATOR HELPER Office Visit [facility] [address] [address] Joyce Luevano, BOUCHRA Hospital Follow Up (Pt F/U on medication issue and was sent to [facility] these was a mix up with the depakote medication and the nurse wanted to make sure he would be taken care of if seizure activity started. to possibly avoid seizure activity. Second time time he went for oxygen issue and aspiration pneumonia. Went to [facility]. Angel with [employer] is here with them as well to giveinformation for a prosthetic.) Social History Tobacco Use Types Packs/Day Years [...] Coronavirus/COVID-19? No / Unsure 06/07/2022 12:03 PM CORRUGATOR OPERATOR HELPER documented as of this encounter Last Filed Vital Signs Vital Sign Reading Time Taken Comments Blood Pressure 138/70 06/07/2022 12:31 PM CORRUGATOR OPERATOR HELPER Pulse 80 06/07/2022 12:31 PM CORRUGATOR OPERATOR HELPER Temperature 36.4 ??C (97.6 ??F) 06/07/2022 12:[address] Respiratory Rate 18 06/07/2022 12:31 PM CORRUGATOR OPERATOR HELPER Oxygen Saturation 100% 06/07/2022 12:31 PM CORRUGATOR OPERATOR HELPER Inhaled Oxygen Concentration - - Weight 59.4 kg (131 lb) 06/07/2022 12:31 PM CORRUGATOR OPERATOR HELPER Height 180.3 cm (5' 11 ) 06/07/2022 12:31 PM CORRUGATOR OPERATOR HELPER Body Mass Index 18.27 06/07/2022 12:31 PM CORRUGATOR OPERATOR HELPER documented in this encounter Functional Status * [...] 2:03 PM KASIT Anahi Jernigan RN Active * Because of [...] in this encounter Progress Notes * Joyce Luevano, RECAPPER - 06/07/2022 12:20 PM CST Images from the original note were not included. OFFICE FOLLOW UP NOTE Encounter Date: 06/07/2022 Chief Complaint: 62-year-old male presents for Hospital Follow Up (Pt F/U on medication issue and was sent to [facility] these was a mix up with the depakote medication and the nurse wanted to make sure he would be taken care of if seizure activity started. to possibly avoid seizure activity. Second time time he went for oxygen issue and aspiration pneumonia. Went to [facility]. Angel with [employer] is here with them as well to giveinformation for a prosthetic.) . 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 Membreno at [facility] He is needing to be fitting for prosthesis He has been evaluated by Angel Correa of [facility] and was found to be able to stand to do pivot transfers. He is expected to start gait training once he gets his prosthesis. He is not currently in therapy for this due to insurance issues. His stump is now healed and ready to be fit with prosthesis. 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 He desires to be able to walk short distances around the facility. Through Angel's evaluation he was found to benefit from a K1 prosthesis to allow him to return to his prior level of independence. K 1: Has the ability orpotential to use a protheses for transfers or ambulation on level surfaces at fixed renae. This is a typical household ambulator, AK1 level prosthesis with not harm or impede his overall health. Angel Strong was present for the first portion of this visit to discuss his evaluation of Mr. Tabor 05/04/2022: ER visit for seizure; his medication was changed while at the assisted he was seen for observation and released 05/31/2022: He was taken to ER for lethargy and was found to have aspiration pneumonia Was treated with antibiotics and released Per his discharge instructions he was to be NPO and get all nutrition through feeding tube. Per sister he has been getting food at the assisted but has been having issues with swallowing and coughing Post nasal drainage Coughing up stuff Sister states that he has complained of right heel pain There have been no open areas Follow up in 3 weeks Review of Systems Constitutional: Negative for chills and fever. Respiratory: Positive for cough. Negative for shortness of breath and wheezing. Cardiovascular: Negative for chest pain. Gastrointestinal: Negative for nausea and vomiting. Skin: Right leg skin dry Neurological: Negative for headaches. Patient Active Problem List Diagnosis ??? Seizure [...] side weakness History Smoking Status ??? Former ??? Packs/day: 0.50 ??? Types: Cigarettes Smokeless Tobacco ??? Never Social History Substance and Sexual Activity Alcohol [...] Take 81 mg by mouth daily. ??? atorvastatin (LIPITOR) 40 MG tablet 40 mg by Enteral route daily. ??? bisacodyl (DULCOLAX) [address] 10 mg rectally daily as needed. ??? cloBAZam (ONFI) 10 MG tablet ??? divalproex EC (DEPAKOTE) 500 MG tablet Take 1,000 mg by mouth 2 (two) times daily. ??? fluticasone propionate (FLONASE) 50 MCG/ACT nasal spray 2 sprays by Nasal route daily. 16 g 2 ??? folic acid 1 MG tablet Take 1 tablet by mouth daily. ??? HEEL/ANKLE PROTECTOR MISC, DME, Apply to right heel when in bed 1 Device 0 ??? Lacosamide 200 MG Tab Take 200 mg by mouth 2 (two) times daily. ??? levETIRAcetam 1000 MG tablet Take 2 tablets by mouth every 12 (twelve) hours. ??? loratadine (CLARITIN) 10 MG tablet Take 1 tablet (10 mg total) by mouth daily. 30 tablet 2 ??? polyethylene glycol (GLYCOLAX) 17 GM/SCOOP powder Take 17 g by mouth daily. ??? SILACE 150 MG/15ML syrup ??? tamsulosin (FLOMAX) 0.4 MG Cap Take 1 capsule (0.4 mg total) by mouth daily. 90 capsule 1 ??? thiamine 100 MG Tab 100 mg by Enteral route daily. ??? ASPIRIN LOW DOSE 81 MG chewable tablet (Patient not taking: Reported on 06/07/2022) ??? ATORVASTATIN 40 MG tablet TAKE 1 TABLET BY MOUTH EVERY DAY (Patient not taking: Reported on 06/07/2022) 90 tablet 0 ??? carboxymethylcellulose (ARTIFICIAL TEARS) 1 % Solution Place 1 drop into both eyes nightly as needed. (Patient not taking: Reported on 06/07/2022) ??? Cholecalciferol 25 MCG (1000 UT) Chew Tab Chew 1,000 Units by mouth daily. (Patient not taking:Reported on 06/07/2022) ??? Cyanocobalamin 1000 MCG Cap Take 1 mg by mouth daily. (Patient not taking: Reported on 06/07/2022) ??? diazePAM, 15 MG Dose, (VALTOCO 15 MG DOSE) 2 x 7.5 MG/0.1ML Liquid Therapy Pack 2 sprays by Nasal route as needed. 1 spray each nostril during a seizure (Patient not taking: Reported on 06/07/2022)1 each 0 ??? divalproex EC 250 MG tablet Take 1 tablet by mouth every 12 (twelve) hours. (Patient not taking: Reported on 06/07/2022) ??? divalproex EC 500 MG tablet Take 1 tablet (500 mg total) by mouth 2 (two) times daily. (Patientnot taking: Reported on 06/07/2022) 60 tablet 0 ??? ibuprofen 600 MG tablet Take 600 mg by mouth every 8 (eight) hours as needed. (Patient not taking: Reported on 06/07/2022) ??? Lacosamide 200 MG Tab TAKE 1 TABLET BY MOUTH TWICE A DAY (Patient not taking: Reported on 06/07/2022) ??? Multiple Vitamin (ONE DAILY MULTIVITAMIN ADULT) Tab Take 1 tablet by mouth daily. (Patient not taking: Reported on 06/07/2022) ??? ondansetron (ZOFRAN-ODT) 4 MG disintegrating tablet (Patient not taking: Reported on 06/07/2022) ??? vitamin B-1 100 MG Tab Take 1 tablet (100 mg total) by mouth daily. (Patient not taking: Reported on 06/07/2022) 30 tablet 0 ??? vitamin D3, cholecalciferol, 1000 UNIT Tab tablet Take 1 tablet by mouth daily. (Patient not taking: Reported on 06/07/2022) No current facility-administered medications for this visit. Allergies Allergen Reactions ??? Clonazepam Hallucinations hallucinations Objective: Filed Vitals: 06/07/22 1231 BP: 138/70 Pulse: 80 Resp: 18 Temp: 97.6 ??F (36.4 ??C) SpO2: 100% Weight: 59.4 kg (131 lb) Height: 5' 11 (1.803 m) Body mass index is 18.27 kg/m??. No LMP for male patient. Physical Exam Cardiovascular: Rate and Rhythm: Normal rate and regular rhythm. Heart sounds: Normal heart sounds. Pulmonary: Effort: Pulmonary effort is normal. Breath sounds: Normal breath sounds. Musculoskeletal: Left Lower Extremity: Left leg is amputated above knee. Feet: Right foot: Skin integrity: Dry skin present. Toenail Condition: Right toenails are long. Skin: General: Skin is warm and dry. Coloration: Skin is not pale. Comments: Right heel slightly soft No erythema and no open area Neurological: Mental Status: He is alert and oriented to person, place, and time. Gait: Gait is intact. Assessment: Encounter Diagnose(s) ICD-10-CM ICD-9-CM 1. History of above-knee amputation of left lower extremity (CMS/[facility]) Z89.612 V49.76 Ambulatory referral to Physical Therapy Ambulatory referral to Occupational Therapy 2. Generalized weakness R53.1 780.79 Ambulatory referral to Physical Therapy Ambulatory referral to Occupational Therapy 3. Toenail deformity L60.8 703.9 Ambulatory referral to Podiatry (OTHER) 4. Post-nasal drainage R09.82 473.9 loratadine (CLARITIN) 10 MG tablet fluticasone propionate (FLONASE) 50 MCG/ACT nasal spray 5. Pneumonia due to infectious organism, unspecified laterality, unspecified part of lung J18.9 486 6. Chronic pain of right heel M79.671 729.5 HEEL/ANKLE PROTECTOR MISC, DME, G89.29 338.29 Plan: Bi was seen today for hospital follow up. Diagnoses and all orders for this visit: History of above-knee amputation of left lower extremity (CMS/HCC) - Ambulatory referral to Physical Therapy - Ambulatory referral to Occupational Therapy Generalized weakness - Ambulatory referral to Physical Therapy - Ambulatory referral to Occupational Therapy Toenail deformity - Ambulatory referral to Podiatry (OTHER) Post-nasal drainage - loratadine (CLARITIN) 10 MG tablet; Take 1 tablet (10 mg total) by mouth daily. - fluticasone propionate (FLONASE) 50 MCG/ACT nasal spray; 2 sprays by Nasal route daily. Pneumonia due to infectious organism, unspecified laterality, unspecified part of lung Chronic pain of right heel - HEEL/ANKLE PROTECTOR MISC, DME,; Apply to right heel when in bed I spent 55 minutes today reviewing the patient's medical record, performing an exam, ordering medications, tests, and/or procedures, documenting in the medical record and counseling and educating thepatient/family/caregiver. Discussed plan of care with patient. Patient verbalized understanding. LYNN Bay-ANGEL Cosigned by Marielena Small[place] MD at 07/02/2022 8:07 AM CORRUGATOR OPERATOR HELPER UGATOR OPERATOR HELPER UGATOR OPERATOR HELPER documented in this encounter Plan of Treatment Scheduled Referrals Name Type Priority Associated Diagnoses Orde r Schedule Ambulatory referral to Podiatry (OTHER) Referral Routine Toenail deformity Ordered: 06/07/2022 Ambulatory referral to Physical Therapy Referral Routine History of above-knee amputation of left lower extremity (CMS/HCC HHS/HCC) Generalized weakness Ordered: 06/07/2022 Ambulatory referral to Occupational Therapy Referral Routine History of above-knee amputation of left lower extremity ([facility]) Generalized weakness Ordered: 06/07/2022 documented as of this encounter Visit Diagnoses Diagnosis History of above-knee amputation of left lower extremity ([facility])- Primary Generalized weakness Other malaise and fatigue Toenail deformity Unspecified disease of nail Post-nasal drainage Unspecified sinusitis (chronic) Pneumonia due to infectious organism, unspecified laterality, unspecified part of lung Chronic pain of right heel documented in this encounter Care Teams Teletypesetter Relationship Specialty Start Date End Date Joyce Luevano RECAPPER [address] [place] [address] PCP - General NURSE PRACTITIONER 01/14/20 10/26/23 Frank Toure MD [address] [place] [address] [employer] Medical Care Administrator CARDIOVASCULAR DISEASE 05/30/16 documented as of this encounter
--- OUTSIDE RECORDS SUMMARY | 2024-06-08 05:49 | XMS_ITS | Encounter Summary ---
Author Organization [facility] Address [address] [facility] [place] [address] [place] [address] Care Team Providers Care Co Founder & Ceo Name Role Phone Frank Toure MD Unavailable Joyce Luevano NP Primary Care Provider Unavaila Marielena Adame MD Primary Care Provider [phone] Encounter Details Date Type Department Care Team (Late st Contact Info) Description 07/06/2022 MyChart Message Enc [facility] Family Medicine - [address] [address] Joyce Luevano, BOUCHRA Bi Tabor Social History Tobacco Use Types [...] Coronavirus/COVID-19? No / Unsure 06/17/2022 10:38 AM TREASURY REPRESENTATIVE documented as of this encounter Functional Status [...] Status Yes 12/04/2018 2:03 PM CDT Anahi Jerngian RN Active * Because of a physical, [...] Progress Notes * Yonatan Rodriguez RN - 07/07/2022 1:34 PM CST Please see note. Thanks SURY REPRESENTATIVE * Yonatan Rodriguez RN - 07/07/2022 8:09 AM CST Please see note. Thanks SURY REPRESENTATIVE documented in this encounter Plan of Treatment Not on file documented as of this encounter Visit Diagnoses Not on filedocumented in this encounter Care Teams Co Founder & Ceo Relationship Specialty Start Date End Date Joyce Luevano NP [address] [place] [address] PCP - General NURSE PRACTITIONER 01/14/20 10/26/23 Marielena [place] MD [address] [place] [address] PCP - General FAMILY PRACTICE 10/27/23 Frank Toure MD [address] [place] [address] [employer] Windows Security Analyst CARDIOVASCULAR DISEASE 05/30/16 documented as of this encounter
--- OUTSIDE RECORDS SUMMARY | 2024-06-08 05:49 | XMS_ITS | Encounter Summary ---
Author Organization [facility] Address [address] [place] [address] [place] [address] Care Team Providers Care Neighborhood Worker Name Role Phone Frank Toure MD Unavailable Joyce Luevano NP Primary Care Provider Unavaila Marielena Adame MD Primary Care Provider [phone] Encounter Details Date Type Department Care Team (Late st Contact Info) Description 03/08/2022 CrowdTransfert Message Enc [facility] Family Medicine - [address] [address] Joyce Luevano NP Vascular doctor Social History Tobacco Use Types Packs/Day Years [...] Progress Notes * Yonatan Rodriguez RN - 03/08/2022 3:54 PM CDT See note. Thanks! * Yonatan Rodriguez RN - 03/08/2022 10:58 AM CDT Please see note. Looks like referral was authorized on 03/05, so may be waiting for scheduling to call from Dr. Membreno's office. There is also a telephone encounter regarding this. documented in this encounter Plan of Treatment Not on file documented as of this encounter Visit Diagnoses Not on filedocumented in this encounter Care Teams Neighborhood Worker Relationship Specialty Start Date End Date Joyce Luevano NP [facility] [place] [address] PCP - General NURSE PRACTITIONER 01/14/20 10/26/23 Marielena Smallwood MD [address] [place] [address] PCP - General FAMILY PRACTICE 10/27/23 Frank Toure MD [address] [place] [address] [employer] Forging Press Setter Up CARDIOVASCULAR DISEASE 05/30/16 documented as of this encounter
--- OUTSIDE RECORDS SUMMARY | 2024-06-08 05:49 | XMS_ITS | Encounter Summary ---
Author Organization [facility] Address [address] [facility]. [place], [place] [address] [place] [address] Care Team Providers Care K 9 Handler/ Deputy Name Role Phone Frank Toure MD Unavailable Joyce Luevano NP Primary Care Provider Unavaila ble Reason for Visit * Reason Comments Image (SCAN) Encounter Details Date Type Department Care Team (Latest Contact Info) Description 11/16/2022 Scan HEALTH INFO SRVCS Scanned, Doc Med [...] Author Status Yes 12/04/2018 2:03 PM Anahi Chavraria RN Active documented as of this encounter [...] Priority Date/Time Associated Diagnosis Comments IMAGE GENERIC 11/16/2022 documented in this encounter Results * IMAGE GENERIC (11/16/2022) Anatomical Region Laterality Modality Other 11/16/2022 us [facility] Scanned SCANNING Final Resu lt documented in this encounter Visit Diagnoses Not on filedocumented in this encounter Care Teams K 9 Handler/ Deputy Relationship Specialty Start Date End Date Joyce Luevano NP [address] [place] [address] PCP - General NURSE PRACTITIONER 01/14/20 10/26/23 Frank Toure MD [address] [place] [address] [employer] Travel Director CARDIOVASCULAR DISEASE 05/30/16 documented as of this encounter
--- OUTSIDE RECORDS SUMMARY | 2024-06-08 05:49 | XMS_ITS | Encounter Summary ---
Author Organization [facility] Address [address] [facility] [place] [address] [place] [address] Care Team Providers Care Insulator Technician Name Role Phone Frank Toure MD Unavailable Joyce Luevano NP Primary Care Provider Unavaila ble Reason for Visit * Reason Comments Image (SCAN) CT (SCAN) Encounter Details Date Type Department Care Team (Late st Contact Info) Description 11/14/2022 Scan HEALTH INFO SRVCS Scanned, Doc Med Group Image (SCAN); CT (SCAN) Social History Tobacco Use Types Packs/Day [...] Name Priority Date/Time Associated Diagnosis Comments CT GENERIC 11/14/2022 IMAGE GENERIC 11/14/2022 IMAGE GENERIC 11/14/2022 documented in this encounter Results * IMAGE GENERIC (11/14/2022) Anatomical Region Laterality Modality Other 11/14/2022 us Doc [facility] Scanned SCANNING Final Resu lt * CT GENERIC (11/14/2022) Anatomical Region Laterality Modality Other 11/14/2022 us [facility] Scanned SCANNING Final Resu lt * IMAGE GENERIC (11/14/2022) Anatomical Region Laterality Modality Other 11/14/2022 us [facility] Scanned SCANNING Final Resu lt documented in this encounter Visit Diagnoses Not on filedocumented in this encounter Care Teams Insulator Technician Relationship Specialty Start Date End Date Joyce Luevano NP [address] [place] [address] PCP - General NURSE PRACTITIONER 01/14/20 10/26/23 Frank Toure MD [address] [place] [address] [employer] Top Flavor Attendant CARDIOVASCULAR DISEASE 05/30/16 documented as of this encounter
--- OUTSIDE RECORDS SUMMARY | 2024-06-08 05:49 | XMS_ITS | Encounter Summary ---
Author Organization [facility] Address [address] [facility]. [place], [place] [address] [place] [address] Care Team Providers Care Head Resident Name Role Phone Frank Toure MD Unavailable Joyce Luevano NP Primary Care Provider Unavaila ble Encounter Details Date Type Department Care Team (Latest Contact Info) Description 06/24/2022 Scan HEALTH INFO SRVCS Scanned, Doc Med [...] Coronavirus/COVID-19? No / Unsure 06/17/2022 10:38 AM ORGANIZATIONAL EFFECTIVENESS CONSULTANT documented as of this encounter Functional Status [...] on filedocumented in this encounter Care Teams Head Resident Relationship Specialty Start Date End Date Joyce Luevano NP [address] [place] [address] PCP - General NURSE PRACTITIONER 01/14/20 10/26/23 Frank Toure MD [address] [place] [address] [employer] Director Corporate Sales CARDIOVASCULAR DISEASE 05/30/16 documented as of this encounter
--- OUTSIDE RECORDS SUMMARY | 2024-06-08 05:49 | XMS_ITS | Encounter Summary ---
Author Organization [facility] Address [address] [facility] [place] [address] [place] [address] Care Team Providers Care Kidney Puller Name Role Phone Frank Toure MD Unavailable Joyce Luevano NP Primary Care Provider Unavaila Marielena Adame MD Primary Care Provider [phone] Encounter Details Date Type Department Care Team (Late st Contact Info) Description 03/15/2022 DigiFun Gamest Message Enc [facility] Family Medicine - [address] [address] Joyce Luevano, BOUCHRA Bi Tabor [...] Progress Notes * Yonatan Rodriguez RN - 03/15/2022 1:13 PM CDT Please see note. Thanks documented in this encounter Plan of Treatment Not on file documented as of this encounter Visit Diagnoses Not on filedocumented in this encounter Care Teams Kidney Puller Relationship Specialty Start Date End Date Joyce Luevano NP [address] [place] [address] PCP - General NURSE PRACTITIONER 01/14/20 10/26/23 Marielena Smallwood MD [address] [place] [address] PCP - General FAMILY PRACTICE 10/27/23 Frank Toure MD [address] [place] [address] [place] Model Builder CARDIOVASCULAR DISEASE 05/30/16 documented as of this encounter
--- OUTSIDE RECORDS SUMMARY | 2024-06-08 05:49 | XMS_ITS | Encounter Summary ---
Author Organization [facility] Address [address] [facility]. [place], [place] [address] [place] [address] Care Team Providers Care Services Advisor Name Role Phone Frank Toure MD Unavailable Joyce Luevano NP Primary Care Provider Yaneth ledesma Encounter Details Date Type Department Care Team (Latest Contact Info) Description 05/03/2023 11:34 PM BIODIESEL OPERATIONS MANAGER - 05/03/2023 11:59 PM BIODIESEL OPERATIONS MANAGER Hospital Encounter [facility] [place] [address] Non-Staff, Provider Discharge Disposition: Home or Self Care (Routine Discharge) Social History Tobacco Use Types Packs/Day Years [...] Chavarria RN Active documented in this encounter Medications at Time of Discharge acetaminophen 325 MG tabletIndications:He adache, unspecified headache type Take 1 tablet (325 mg total) by mouth every 8 (eight) hours as needed for Pain. 90 tablet 2 01/10/2019 amLODIPine 5 MG tabletIndications:Pr imary hypertension Take 1 tablet (5 mg total) by mouth daily. 90 tablet 1 08/03/2021 ASPIRIN 81 OR Take 81 mg by mouth daily. 12/14/2020 ASPIRIN LOW DOSE 81 MG chewable tablet 05/03/2022 atorvastatin (LIPITOR) 40 MG tablet 40 mg by Enteral route daily. 04/01/2022 ATORVASTATIN 40 MG tabletIndications:Mi xed hyperlipidemia TAKE 1 TABLET BY MOUTH EVERY DAY 90 tablet 10/29/2021 bisacodyl (DULCOLAX) [address] 10 mg rectally daily as needed. 03/31/2022 carboxymethylcellulo se (ARTIFICIAL TEARS) 1 % Solution Place 1 drop into both eyes nightly as needed. Cholecalciferol 25 MCG (1000 UT) Chew Tab Chew 1,000 Units by mouth daily. 12/13/2020 cloBAZam (ONFI) 10 MG tablet 02/25/2022 Cyanocobalamin 1000 MCG Cap Take 1 mg by mouth daily. 03/12/2021 diazePAM, 15 MG Dose, (VALTOCO 15 MG DOSE) 2 x 7.5 MG/0.1ML Liquid Therapy PackIndications:Seiz ure ([facility]) 2 sprays by Nasal route as needed. 1 spray each nostril during a seizure 1 each 07/31/2021 divalproex EC (DEPAKOTE) 500 MG tablet Take 1,000 mg by mouth 2 (two) times daily. 05/27/2022 divalproex EC 250 MG tablet Take 1 tablet by mouth every 12 (twelve) hours. 03/12/2021 divalproex EC 500 MG tabletIndications:Se izure ([facility]) Take 1 tablet (500 mg total) by mouth 2 (two) times daily. 60 tablet 08/03/2021 fluticasone propionate (FLONASE) 50 MCG/ACT nasal sprayIndications:Pos t-nasal drainage 2 sprays by Nasal route daily. 16 g 2 06/07/2022 folic acid 1 MG tablet Take 1 tablet by mouth daily. 12/14/2020 HEEL/ANKLE PROTECTOR MISC, DME,Indications:Mounter Sousaphones mahin pain of right heel Apply to right heel when in bed 1 Device 06/07/2022 ibuprofen 600 MG tablet Take 600 mg by mouth every 8 (eight) hours as needed. Lacosamide 200 MG Tab 09/01/2021 Lacosamide 200 MG Tab Take 200 mg by mouth 2 (two) times daily. 02/16/2022 levETIRAcetam 1000 MG tablet Take 2 tablets by mouth every 12 (twelve) hours. 12/14/2020 loratadine (CLARITIN) 10 MG tabletIndications:Po st-nasal drainage Take 1 tablet (10 mg total) by mouth daily. 30 tablet 2 06/07/2022 Multiple Vitamin (ONE DAILY MULTIVITAMIN ADULT) Tab Take 1 tablet by mouth daily. 08/22/2020 ondansetron (ZOFRAN-ODT) 4 MG disintegrating tablet 02/02/2022 polyethylene glycol (GLYCOLAX) 17 GM/SCOOP powder Take 17 g by mouth daily. 01/08/2022 SILACE 150 MG/15ML syrup 04/07/2022 tamsulosin (FLOMAX) 0.4 MG CapIndications:Urina ry retention Take 1 capsule (0.4 mg total) by mouth daily. 90 capsule 1 08/03/2021 thiamine 100 MG Tab 100 mg by Enteral route daily. 04/01/2022 vitamin B-1 100 MG TabIndications:Seizu re ([facility]) Take 1 tablet (100 mg total) by mouth daily. 30 tablet 12/13/2018 vitamin D3, cholecalciferol, 1000 UNIT Tab tablet Take 1 tablet by mouth daily. 12/14/2020 documented as of this encounter Plan of Treatment Not on file documented as of this encounter Procedures Procedure Name Priority Date/Time Associated Diagnosis Comments VANCOMYCIN TROUGH Routine 05/03/2023 10: 10 PM BIODIESEL OPERATIONS MANAGER Encounter for long-term (current) use of antibiotics documented in this encounter Results * VANCOMYCIN TROUGH (05/03/2023 10:10 PM BIODIESEL OPERATIONS MANAGER) VANCOMYCIN TROUGH 16.3 10.0 - 20.0 MCG/ML 05/03/2023 11:55 PM BIODIESEL OPERATIONS MANAGER [facility] Comment: ? THERAPEUTIC: 10.0-20.0 ? TOXIC: >25.0 VANCOMYCIN UNKNOWN 05/03/2023 11:36 PM BIODIESEL OPERATIONS MANAGER [facility] 05/03/2023 10:1 0 PM BIODIESEL OPERATIONS MANAGER us Provider Non-Staff LABORATORY Final Result Performing Organization Address City/State/[facility] Co de Phone Number [facility] [address] [place] [address], documented in this encounter Visit Diagnoses Diagnosis Encounter for long-term (current) use of antibiotics documented in this encounter Care Teams Services Advisor Relationship Specialty Start Date End Date Joyce Luevano NP [address] [place] [address] PCP - General NURSE PRACTITIONER 01/14/20 10/26/23 Frank Toure MD [address] [place] [address] Chivo Chimney Sweeper CARDIOVASCULAR DISEASE 05/30/16 documented as of this encounter
--- OUTSIDE RECORDS SUMMARY | 2024-06-08 05:49 | XMS_ITS | Encounter Summary ---
Author Organization [facility] Address [address] [facility]. [place], [place] [address] [place] [address] Care Team Providers Care Gis Scientist Name Role Phone Frank Toure MD Unavailable Joyce Luevano NP Primary Care Provider Boa ble Encounter Details Date Type Department Care Team (Latest Contact Info) Description 03/04/2022 Travel Social History Tobacco Use Types Packs/Day [...] Author Status No 12/04/2018 2:03 PM CDT Acti ve * RETIRED Are you blind or do [...] on filedocumented in this encounter Care Teams Gis Scientist Relationship Specialty Start Date End Date Joyce Luevano NP [address] [place] [address] PCP - General NURSE PRACTITIONER 01/14/20 10/26/23 Frank Toure MD [address] [place] [address] Chivo Glove Turner And Former Automatic CARDIOVASCULAR DISEASE 05/30/16 documented as of this encounter
--- OUTSIDE RECORDS SUMMARY | 2024-06-08 05:49 | XMS_ITS | Encounter Summary ---
Author Organization [facility] Address [address] [facility] [place] [address] [place] [address] Care Team Providers Care Grad Intern Name Role Phone Frank Toure MD Unavailable Joyce Luevano OVEN OPERATOR Primary Care Provider Unavaila ble Reason for Visit * Reason Onset Date Comments Hospital Discharge 08/27/2022 Encounter Details Date Type Department Care Team (Late st Contact Info) Description 08/27/2022 Telephone [facility] Family Medicine - [address] [address] Joyce Luevano, BOUCHRA Hospital Discharge Social History Tobacco Use Types Packs/Day Years [...] Progress Notes * Bautista Whitman MA - 08/30/2022 11:11 AM CDT FYI * Crystal Riggins - 08/27/2022 1:16 PM CDT Pt. Was released out of the hospital [facility] and rehab. Thank you documented in this encounter Plan of Treatment Not on file documented as of this encounter Visit Diagnoses Not on filedocumented in this encounter Care Teams Grad Intern Relationship Specialty Start Date End Date Joyce Luevano NP [address] [place] [address] PCP - General NURSE PRACTITIONER 01/14/20 10/26/23 Frank Toure MD [address] [place] [address] Chivo Hairspring Inspector CARDIOVASCULAR DISEASE 05/30/16 documented as of this encounter
--- OUTSIDE RECORDS SUMMARY | 2024-06-08 05:49 | XMS_ITS | Encounter Summary ---
Author Organization [facility] Address [address] [facility] [place] [address] [place] [address] Care Team Providers Care Kardex Clerk Name Role Phone Frank Toure MD Unavailable Joyce Luevano NP Primary Care Provider Unavaila Marielena Adame MD Primary Care Provider [phone] Encounter Details Date Type Department Care Team (Late st Contact Info) Description 05/11/2022 popchipst Message Enc [facility] Family Medicine - [address] [address] Joyce Luevano NP Leon appointment for - Social History Tobacco Use Types Packs/Day Years [...] on filedocumented in this encounter Care Teams Kardex Clerk Relationship Specialty Start Date End Date Joyce Luevano NP [address] [place] [address] PCP - General NURSE PRACTITIONER 01/14/20 10/26/23 Marielena mSallwood MD [address] [place] [address] PCP - General FAMILY PRACTICE 10/27/23 Frnak Toure MD [address] [place] [address] [place] Human Resources Benefits Assistant CARDIOVASCULAR DISEASE 05/30/16 documented as of this encounter
--- OUTSIDE RECORDS SUMMARY | 2024-06-08 05:49 | XMS_ITS | Encounter Summary ---
Author Organization [facility] Address [address] [facility]. [place], [place] [address] [place] [address] Care Team Providers Care Remote Sensing Scientist Name Role Phone Frank Toure MD Unavailable Joyce Luevano NP Primary Care Provider Unavaila ble Reason for Visit * Reason Comments CT (SCAN) Encounter Details Date Type Department Care Team (Latest Contact Info) Description 11/09/2022 Scan HEALTH INFO SRVCS Scanned, Doc Med Group CT (SCAN) Social History Tobacco Use Types [...] Priority Date/Time Associated Diagnosis Comments CT GENERIC 11/09/2022 CT GENERIC 11/09/2022 documented in this encounter Results * CT GENERIC (11/09/2022) Anatomical Region Laterality Modality Other 11/09/2022 us Doc Med Group Scanned SCANNING Final Resu lt * CT GENERIC (11/09/2022) Anatomical Region Laterality Modality Other 11/09/2022 us Doc Med Group Scanned SCANNING Final Resu lt documented in this encounter Visit Diagnoses Not on filedocumented in this encounter Care Teams Remote Sensing Scientist Relationship Specialty Start Date End Date Joyce Luevano NP [address] [place] [address] PCP - General NURSE PRACTITIONER 01/14/20 10/26/23 Frank Toure MD [address] [place] [address] Chivo Medicine Assistant CARDIOVASCULAR DISEASE 05/30/16 documented as of this encounter
--- OUTSIDE RECORDS SUMMARY | 2024-06-08 05:49 | XMS_ITS | Encounter Summary ---
Author Organization [facility] Address [address] [place] [address]. [place], [place] [address] [place] [address] Care Team Providers Care Advertising Photographer Name Role Phone Frank Toure MD Unavailable Joyce Luevano ADULT MINISTRIES DIRECTOR Primary Care Provider Unavaila ble Reason for Visit * Reason Onset Date Comments Follow Up Call 03/23/2022 Encounter Details Date Type Department Care Team (Late st Contact Info) Description 03/23/2022 Telephone [facility] Family Medicine - [address] [address] Joyce Luevano, BOUCHRA Follow Up Call Social History Tobacco Use Types Packs/Day [...] Coronavirus/COVID-19? No / Unsure 06/07/2022 12:03 PM CAR PARKER documented as of this encounter Functional Status [...] Progress Notes * Joyce Luevano NP - 03/25/2022 4:28 PM CDT Attempted to call Marianna back but no answer. Voicemail was left. * Bautista Whitman MA - 03/24/2022 9:38 AM CDT Spoke to pts sister Adriane and she said she is aware of the investigation and she is the one who started it. She said she told them that Joyce recommended the ER from [facility] [employer] message. I informed her Iwould let you know that she is aware of the investigation. * Joyce Luevano NP - 03/23/2022 5:13 PM CDT Marianna called to office in regards to doing an investigation on patient [facility] in penitentiary. I did answer a couple of questions in regards to patients care and then told her that she would have to send over a release of information from [employer]; patients power of litharge supervisor for me to continue to talk with her. She will do this via fax. Please reach out to patient's sister and ask if she is aware of this investigation. Joyce Luevano NP * Bautista Whitman MA - 03/23/2022 3:17 PM CDT How do you want to proceed? * Delilah Cloud - 03/23/2022 2:37 PM CDT Marianna from [facility] called, and needs to speak to Joyce Luevano regarding this patient. Please follow up. documented in this encounter Plan of Treatment Not on file documented as of this encounter Visit Diagnoses Not on filedocumented in this encounter Care Teams Advertising Photographer Relationship Specialty Start Date End Date Joyce Luevano NP [address] [place] [address] PCP - General NURSE PRACTITIONER 01/14/20 10/26/23 Frank Toure MD [address] [place] [address] Chivo Discharge Specialist CARDIOVASCULAR DISEASE 05/30/16 documented as of this encounter
--- OUTSIDE RECORDS SUMMARY | 2024-06-08 05:49 | XMS_ITS | Encounter Summary ---
Author Organization [facility] Address [address] [facility]. [place], [place] [address] [place] [address] Care Team Providers Care Sports Development Officer Name Role Phone Frank Toure MD Unavailable Joyce Luevano NP Primary Care Provider Unavaila ble Encounter Details Date Type Department Care Team (Latest Contact Info) Description 04/10/2022 Scan HEALTH INFO SRVCS Scanned, Doc Med [...] Coronavirus/COVID-19? No / Unsure 06/17/2022 10:38 AM CINNAMON GRINDER documented as of this encounter Functional Status [...] on filedocumented in this encounter Care Teams Sports Development Officer Relationship Specialty Start Date End Date Joyce Luevano NP [address] [place] [address] PCP - General NURSE PRACTITIONER 01/14/20 10/26/23 Frank Toure MD [address] [place] [address] Chivo Assistant Manager CARDIOVASCULAR DISEASE 05/30/16 documented as of this encounter
--- OUTSIDE RECORDS SUMMARY | 2024-06-08 05:49 | XMS_ITS | Encounter Summary ---
Author Organization [facility] Address [address] [facility] [place] [address] [place] [address] Care Team Providers Care Chief Medical Officer Name Role Phone Frank Toure MD Unavailable Joyce Luevano NP Primary Care Provider Unavaila Marielena Adame MD Primary Care Provider [phone] Encounter Details Date Type Department Care Team (Late st Contact Info) Description 06/16/2022 MyCAtacatto Fashion Marketplacet Message Enc [facility] Family Medicine - [address] [address] Joyce Luevano, BOUCHRA Bi Tabor [...] Coronavirus/COVID-19? No / Unsure 06/17/2022 10:38 AM DSP ENGINEER documented as of this encounter Functional Status [...] Progress Notes * Yonatan Rodriguez RN - 06/18/2022 9:57 AM CST Called and spoke with Cece at this number. She states we just need to fax a paper that states patient is okay to resume therapy in writing. She states to fax to [phone]. Will send letter to them. ENGINEER * Yonatan Rodriguez RN - 06/16/2022 12:50 PM CST Please see note. Thanks ENGINEER documented in this encounter Plan of Treatment Not on file documented as of this encounter Visit Diagnoses Not on filedocumented in this encounter Care Teams Chief Medical Officer Relationship Specialty Start Date End Date Joyce Luevano NP [address] [place] [address] PCP - General NURSE PRACTITIONER 01/14/20 10/26/23 Marielena Smallwood MD [address] [place] [address] PCP - General FAMILY PRACTICE 10/27/23 Frank Toure MD [address] [place] [address] Chivo Slot Host CARDIOVASCULAR DISEASE 05/30/16 documented as of this encounter
--- OUTSIDE RECORDS SUMMARY | 2024-06-08 05:49 | XMS_ITS | Clinical Summary ---
Author Organization [facility] Address [address] [place] [address] [place] [address] Care Team Providers Care Carpenter Name Role Phone Frank Toure MD Unavailable Marielena Smallwood MD Primary Care Provider [phone] Allergies Active Allergy Reactions Criticality Noted Date Comments Clonazepam Hallucinations Medium 12/09/2021 hallucinations Medications vitamin B-1 100 MG TabIndications:Seiz ure ([facility]) Take 1 tablet (100 mg total) by mouth daily. 30 tablet 9 Active acetaminophen 325 MG tabletIndications:H eadache, unspecified headache type Take 1 tablet (325 mg total) by mouth every 8 (eight) hours as needed for Pain. 90 tablet 2 9 Active ibuprofen 600 MG tablet Take 600 mg by mouth every 8 (eight) hours as needed. Active Multiple Vitamin (ONE DAILY MULTIVITAMIN ADULT) Tab Take 1 tablet by mouth daily. 1 Active ASPIRIN 81 OR Take 81 mg by mouth daily. 1 Active folic acid 1 MG tablet Take 1 tablet by mouth daily. 1 Active vitamin D3, cholecalciferol, 1000 UNIT Tab tablet Take 1 tablet by mouth daily. 1 Active diazePAM, 15 MG Dose, (VALTOCO 15 MG DOSE) 2 x 7.5 MG/0.1ML Liquid Therapy PackIndications:Tara llanes ([facility]) 2 sprays by Nasal route as needed. 1 spray each nostril during a seizure 1 each 2 Active amLODIPine 5 MG tabletIndications:P rimary hypertension Take 1 tablet (5 mg total) by mouth daily. 90 tablet 1 2 Active divalproex EC 500 MG tabletIndications:S eizure ([facility]) Take 1 tablet (500 mg total) by mouth 2 (two) times daily. 60 tablet 2 Active tamsulosin (FLOMAX) 0.4 MG CapIndications:Urin shlomo retention Take 1 capsule (0.4 mg total) by mouth daily. 90 capsule 1 2 Active ATORVASTATIN 40 MG tabletIndications:M ixed hyperlipidemia TAKE 1 TABLET BY MOUTH EVERY DAY 90 tablet 2 Active Lacosamide 200 MG Tab 2 Active Cholecalciferol 25 MCG (1000 UT) Chew Tab Chew 1,000 Units by mouth daily. 1 Active Cyanocobalamin 1000 MCG Cap Take 1 mg by mouth daily. 1 Active divalproex EC 250 MG tablet Take 1 tablet by mouth every 12 (twelve) hours. 1 Active levETIRAcetam 1000 MG tablet Take 2 tablets by mouth every 12 (twelve) hours. 1 Active cloBAZam (ONFI) 10 MG tablet 2 Active ondansetron (ZOFRAN-ODT) 4 MG disintegrating tablet 2 Active polyethylene glycol (GLYCOLAX) 17 GM/SCOOP powder Take 17 g by mouth daily. 2 Active Lacosamide 200 MG Tab Take 200 mg by mouth 2 (two) times daily. 2 Active ASPIRIN LOW DOSE 81 MG chewable tablet 2 Active atorvastatin (LIPITOR) 40 MG tablet 40 mg by Enteral route daily. 2 Active bisacodyl (DULCOLAX) [address] 10 mg rectally daily as needed. 2 Active divalproex EC (DEPAKOTE) 500 MG tablet Take 1,000 mg by mouth 2 (two) times daily. 2 Active thiamine 100 MG Tab 100 mg by Enteral route daily. 2 Active SILACE 150 MG/15ML syrup 2 Active carboxymethylcellul ose (ARTIFICIAL TEARS) 1 % Solution Place 1 drop into both eyes nightly as needed. Active loratadine (CLARITIN) 10 MG tabletIndications:P ost-nasal drainage Take 1 tablet (10 mg total) by mouth daily. 30 tablet 2 3 Active fluticasone propionate (FLONASE) 50 MCG/ACT nasal sprayIndications:Po st-nasal drainage 2 sprays by Nasal route daily. 16 g 2 3 Active HEEL/ANKLE PROTECTOR MISC, DME,Indications:Chr onic pain of right heel Apply to right heel when in bed 1 Device 3 Active Active Problems Problem Noted Date Diagnosed Date Headache, unspecified headache type 12/27/2018 Encephalopathy 12/04/2018 UTI (urinary tract infection) 11/29/2018 Assessment & Plan (11/29/2018 9:38 PM CDT): As noted above No evidence of infection Urine cultures from [facility] last month were negative growth as well with similar findings urinalysis Symptoms may be due to chronic urinary retention and he will require postvoid residuals and urologic evaluation if significant retention is noted during this admission. I will put him on some Flomax and observe and discontinue Jensen in 48 hours. Encephalopathy acute 11/29/2018 Assessment & Plan (11/29/2018 9:35 PM CDT): This appears to be rather recurrent complaint during multiple admissions to the emergency room another hospital facilities Cannot ascertain whether this is medication side effect from appropriate dosages or inadequate or overdosage by patient because he cannot remember to take his medications. I would monitor patient's condition here until he improves as he does not function at baseline currently is at risk for injury or worse at home Doubt hyponatremia or urinary tract infection causing the symptoms Urinalysis is invalidated by multiple squamous cells noted. Urine from Jensen catheter looks fairly clear and he does not have any leukocytosis which would indicate any systemic reaction to infection. Antibiotics not indicated Osteoporosis 11/22/2018 Seizure ([facility]) 08/25/2017 Cerebrovascular accident (CV A) due to thrombosis of right posterior cerebral artery ([facility]) 02/20/2016 Assessment & Plan (11/29/2018 9:36 PM CDT): Patient has residual cognitive difficulties I think beyond with patient and her family have recognized in the past however as noted in adequate medication intake her side effects may be causing deterioration. Hypertension 07/24/2015 Hyperlipidemia 04/14/2015 Assessment & Plan (11/29/2018 9:36 PM CDT): Continue home meds and monitor Seizure ([facility]) 04/11/2015 Assessment & Plan (11/29/2018 9:39 PM CDT): History of generalized seizure disorder and being managed by a neurologist in [facility] however there is confusion from family about dosages of his medications because he is got multiple pill bottles at home. Verification of levetiracetam dose per neurologist noted Immunizations Name Administration Dates Next Due Influenza (Generic) 03/16/2021,03/07/2020,2018,04/23/2015 Influenza Adult (Generic) 03/24/2018,06/15/2017, 06/23/2016,03/19/2015 Pneumococcal (Pneumovax 23) 02/04/2016, 6,02/07/2015 Tdap (Boostrix) 06/06/2017 Tdap (Generic) 03/23/2017 Family History Relation Status Comments Brother 1 Alive Brother 2 Alive Brother 3 Alive Brother 4 Alive Brother 5 Alive Daughter 1 Alive Daughter 2 Alive Daughter 3 Alive Father Alive Mother Sister 1 Alive Sister 2 Alive Sister 3 Alive Son 1 Alive Son 2 Alive Son 3 Alive Social History Tobacco Use Types Packs/Day Years Used Date Smoking Tobacco: Former Cigarettes Smokeless Tobacco: Never Tobacco Cessation:Counseling Given: Not Answered Alcohol Use Standard Drinks/Week Comments Not Currently 0 (1 standard drink = 0.6 oz pur e alcohol) Sex and Gender Information Value Date Recorded Sex Assigned at Not on file Legal Sex Male 10:23 PM CDT Gender Identity Not on file Sexual Orientation Not on file Last Filed Vital Signs Vital Sign Reading Time Taken Comments Blood Pressure 128/72 06/17/2022 10:46 AM HOUSEMAN Pulse 95 06/17/2022 10:46 AM HOUSEMAN Temperature 36.4 ??C (97.6 ??F) 06/07/2022 1 2:31 PM HOUSEMAN Respiratory Rate 18 06/17/2022 10:4 6 AM HOUSEMAN Oxygen Saturation 98% 06/17/2022 10: 46 AM HOUSEMAN Inhaled Oxygen Concentration - - Weight 59 kg (130 lb) 06/17/2022 10:46 AM HOUSEMAN stated - unable to weigh Height 180.3 cm (5' 11 ) 06/17/2022 10: 46 AM HOUSEMAN Body Mass Index 18.13 06/17/2022 10:46 AM HOUSEMAN Plan of Treatment Health Maintenance Due Date Last Done Comments Annual Physical 01/27/1963 Zoster Vaccines (1 of 2) 2011 RSV Immunization or 60+ Years (1 - Risk 60-74 years 1-dose series) 2021 COVID-19 Vaccine ( - season) 2024 04/06/2021, 07/02/2020, 06/11/2020 Influenza Adult (#1) 2024 02/01/2022, 03/16/2021, 03/07/2020, Additional history exists Colorectal Cancer Screening Colonoscopy (10 Years) 11/22/2026 11/22/2016 DTaP, Tdap and Td Vaccines (3 - Td or Tdap) 06/06/2027 06/06/2017, 03/23/2017 Pneumococcal Vaccine: Pediatrics (0 to 5 Years) and At-Risk Patients (6 to 64 Years) Aged Out 02/04/2016, 08/13/2015, 02/07/2015 No longer eligible based on patient's age to complete this topic Hepatitis C Completed 06/23/2016, 06/23/2016 Meningococcal Vaccine Aged Out No eleonora luc eligible based on patient's age to complete this topic RSV Immunizations Under 20 Months Aged Out No longer eligible based on patient's age to complete this topic Procedures Procedure Name Priority Date/Time Associated Diagnosis Comments COLONOSCOPY Routine 11/22/2016 12:00 AM CDT HEPATITIS C ANTIBODY Routine 06/23/2016 11:13 AM HOUSEMAN from Last 3 Months or Most Recently Relevant to Health Maintenance Results * Colonoscopy (11/22/2016 12:00 AM CDT) 11/22/2016 11/22/2016 Narrative [facility] TO EP[facility] CONVERSION - 11/22/2016 12:00 AM CDT Documented hx of procedure Procedure Note Jerica Olsen MD - 04/02/2018 Documented hx of procedure us Generic Conversion Md [facility] PROCEDURE ORDERABLES Final Result [facility] TO EP[facility] CONVERSION * HEPATITIS C ANTIBODY (06/23/2016 11:13 AM HOUSEMAN) HEPATITIS C AB NON-REACTIVE ? [place] [address] NR [facility] TO EPIC CONVERSION 06/23/2016 11:1 3 AM HOUSEMAN 06/23/2016 11:13 AM HOUSEMAN Narrative [facility] TO EPIC CONVERSION - 06/24/2016 6:41 PM HOUSEMAN Result Communication: No patient communication needed at this time us Misael Maradiaga DO LABORATORY Final Result Performing Organization Address City/[facility]/ZIP Co de Phone Number [facility] TO EPIC CONVERSION from Last 3 Months or Most Recently Relevant to Health Maintenance Insurance Advance Directives Documents on File Type Date Recorded Patient Milk And Cream Grader Expl anation Advance Directives and Living Will 10/17/2017 SADVANCE DIRECTIVES * Full Code (Latest Code Status on File) Date Activated Date Inactivated Comments 12/04/2018 1:44 PM 12/12/2018 3:19 PM * Full Code Date Activated Date Inactivated Comments 11/29/2018 6:21 PM 12/04/2018 1:38 PM Care Teams Carpenter Relationship Specialty Start Date End Date Marielena Smallwood MD [address] [place] [id number] PCP - General FAMILY PRACTICE 10/27/23 Frank Toure MD [address] [place] [address] Taylors Strickler Attendant CARDIOVASCULAR DISEASE 05/30/16
--- OUTSIDE RECORDS SUMMARY | 2024-06-08 05:49 | XMS_ITS | Encounter Summary ---
Author Organization [facility] Address [address] [place], [place] [address] [place] [address] Care Team Providers Care Buttermaker Helper Name Role Phone Frank Toure MD Unavailable Joyce Luevano NP Primary Care Provider Unavaila ble Encounter Details Date Type Department Care Team (Latest Contact Info) Description 05/10/2022 Scan HEALTH INFO SRVCS Scanned, Doc Med [...] Coronavirus/COVID-19? No / Unsure 06/17/2022 10:38 AM [facility] DIRECTOR documented as of this encounter Functional Status [...] on filedocumented in this encounter Care Teams Buttermaker Helper Relationship Specialty Start Date End Date Joyce Luevano NP [address] [place] [address] PCP - General NURSE PRACTITIONER 01/14/20 10/26/23 Frank Toure MD [address] [place] [address] Chivo Harpooner CARDIOVASCULAR DISEASE 05/30/16 documented as of this encounter
--- OUTSIDE RECORDS SUMMARY | 2024-06-08 05:49 | XMS_ITS | Encounter Summary ---
Author Organization [facility] Address [facility] [facility] [place] [address] [place] [address] Care Team Providers Care Pipe Fitter Supervisor Name Role Phone Frank Toure MD Unavailable Joyce Luevano MANAGER CLINIC Primary Care Provider Unavaila ble Reason for Visit * Reason Onset Date Comments Pre-visit Gap Closure 03/08/2022 Encounter Details Date Type Department Care Team (Late st Contact Info) Description 03/08/2022 Telephone [facility] Family Medicine - [place] [address] [place] [address] Joyce Luevano, BOUCHRA Pre-visit Gap Closure Social History Tobacco Use Types Packs/Day Years [...] Coronavirus/COVID-19? No / Unsure 06/07/2022 12:03 PM ROUTE SALES MANAGER documented as of this encounter Functional [...] Notes * Yonatan Rodriguez RN - 03/08/2022 1:51 PM CDT FYI * Ramya Ernst - 03/08/2022 1:49 PM CDT Pt sister Adriane called office back and stated that they are taking pt to [facility] ER * Joyce Luevano NP - 03/08/2022 1:03 PM CDT Patient's sister advised to take him to ER. She is arranging for an ambulance to take him there now. * Yonatan Rodriguez RN - 03/08/2022 10:59 AM CDT Please see note. There is also a [place] [employer] message regarding this. * Ramya Ernst - 03/08/2022 9:48 AM CDT pts sister Adriane called today and stated that she has not heard yet from [facility] yet. Adriane stated that his foot has gotten worse and pt has gotten worse as well. Call Adriane back regarding this Adriane stated that she is going to send a picture in My Chart. documented in this encounter Plan of Treatment Not on file documented as of this encounter Visit Diagnoses Not on filedocumented in this encounter Care Teams Pipe Fitter Supervisor Relationship Specialty Start Date End Date Joyce Luevano NP [address] [place] [address] PCP - General NURSE PRACTITIONER 01/14/20 10/26/23 Frank Toure MD [address] [place] [address] Chivo Through Operator CARDIOVASCULAR DISEASE 05/30/16 documented as of this encounter
--- OUTSIDE RECORDS SUMMARY | 2024-06-08 05:49 | XMS_ITS | Encounter Summary ---
Author Organization [facility] Address [address] [place], [place] [address] [place] [address] Care Team Providers Care Senior Quality Assurance Engineer Name Role Phone Frank Toure MD Unavailable Joyce Luevano VENEER CUTTER Primary Care Provider Boa ble Encounter Details Date Type Department Care Team (Late st Contact Info) Description 05/03/2023 Orders Only [facility] [address] [place], [place] [id number] Non-Staff, Provider Social History Tobacco Use Types Packs/Day Years [...] on file documented as of this encounter Results * VANCOMYCIN TROUGH (05/03/2023 10:10 PM ELECTRICAL CONTROL ASSEMBLER) [facility] VANCOMYCIN TROUGH 16.3 10.0 - 20.0 MCG/ML 05/03/2023 11:55 PM ELECTRICAL CONTROL ASSEMBLER [facility] Comment: ? THERAPEUTIC: 10.0-20.0 ? TOXIC: >25.0 VANCOMYCIN UNKNOWN 05/03/2023 11:36 PM ELECTRICAL CONTROL ASSEMBLER [facility] 05/03/2023 10:1 0 PM ELECTRICAL CONTROL ASSEMBLER us Provider Non-Staff LABORATORY Final Result Performing Organization Address City/State/[facility] Co de Phone Number [facility] [address] [place] [address], documented in this encounter Visit Diagnoses Diagnosis Encounter for long-term (current) use of antibiotics- Primary documented in this encounter Care Teams Senior Quality Assurance Engineer Relationship Specialty Start Date End Date Joyce Luevano NP [address] [place] [address] PCP - General NURSE PRACTITIONER 01/14/20 10/26/23 Frank Toure MD [address] [place] [address] Chivo Billing Supervisor CARDIOVASCULAR DISEASE 05/30/16 documented as of this encounter
--- OUTSIDE RECORDS SUMMARY | 2024-06-08 05:49 | XMS_ITS | Encounter Summary ---
Author Organization [facility] Address [address] [place] [address]. [place], [place] [address] [place] [address] Care Team Providers Care Milanese Knitting Machine Operator Name Role Phone Frank Toure MD Unavailable Joyce Luevano [employer] DRIVER Primary Care Provider Unavaila ble Reason for Visit * Reason Onset Date Comments Forms 06/14/2022 Encounter Details Date Type Department Care Team (Late st Contact Info) Description 06/14/2022 Telephone [facility] Family Medicine - [address] [address] Joyce Luevano, BOUCHRA Forms Social History Tobacco Use Types Packs/Day [...] Coronavirus/COVID-19? No / Unsure 06/17/2022 10:38 AM GLUER AND WEDGER documented as of this encounter Functional Status [...] Progress Notes * Bautista Whitman MA - 06/16/2022 11:25 AM CST Forms were faxed to [facility] on Tuesday06/15/22. R AND WEDGER * Delilah Cloud - 06/14/2022 9:47 AM CST Anahi, from [facility], called. She is wanting to know the status of the form they faxed on 06-11-21, as well as the office notes. Please fx to [phone]. R AND WEDGER documented in this encounter Plan of Treatment Not on file documented as of this encounter Visit Diagnoses Not on filedocumented in this encounter Care Teams Milanese Knitting Machine Operator Relationship Specialty Start Date End Date Joyce Luevano NP [address] [place] [address] PCP - General NURSE PRACTITIONER 01/14/20 10/26/23 Frank Toure MD [address] [place] [address] Chivo Leadite Man CARDIOVASCULAR DISEASE 05/30/16 documented as of this encounter
--- OUTSIDE RECORDS SUMMARY | 2024-06-08 05:49 | XMS_ITS | Encounter Summary ---
Author Organization [facility] Address [address] [place] [address] [place] [address] Care Team Providers Care Chiropractic Assistant Name Role Phone Frank Toure MD Unavailable Joyce Luevano ELECTRICIAN SOUND Primary Care Provider Unavaila ble Reason for Visit * Reason Comments New Patient New patient - states he has right heel pain - states PCP thinks it might be a pressure sore forming * Consultation (Routine) - Closed Specialty Diagnoses / Procedures Referred By Anabella dan Referred To Contact PODIATRY Diagnoses Toenail deformity Procedures OFFICE/OUTPT VISIT,NEW,LEVL III OFFICE/OUTPT VISIT,NEW,LEVL IV OFFICE/OUTPT VISIT,NEW,LEVL V OFFICE/OUTPT VISIT,EST,LEVL III OFFICE/OUTPT VISIT,EST,LEVL IV OFFICE/OUTPT VISIT,EST,LEVL V Joyce Luevano, ELECTRICIAN SOUND [address] [place] [address] [facility] - [place] [address] Phone: tel: fax: Referral ID Status Reason Start Date Expiration Date V isits Requested Visits Authorized [id number] Closed Specialty Services 06/07/2022 07/08/2023 99 999 Encounter Details Date Type Department Care Team (Late st Contact Info) Description 06/17/2022 10:40 AM DRYER FEEDER Office Visit [facility] [place] [address] [place] [address] Susan Gallo, ELECTRICIAN SOUND-C [address] [place] [address] New Patient (New patient - states he has right heel pain - states PCP thinks it might be a pressure sore forming ) Social History Tobacco Use Types Packs/Day Years [...] Coronavirus/COVID-19? No / Unsure 06/17/2022 10:38 AM DRYER FEEDER documented as of this encounter Last Filed Vital Signs Vital Sign Reading Time Taken Comments Blood Pressure 128/72 06/17/2022 10:46 AM DRYER FEEDER Pulse 95 06/17/2022 10:46 AM DRYER FEEDER Temperature - - Respiratory Rate 18 06/17/2022 10:4 6 AM DRYER FEEDER Oxygen Saturation 98% 06/17/2022 10: 46 AM DRYER FEEDER Inhaled Oxygen Concentration - - Weight 59 kg (130 lb) 06/17/2022 10:46 AM DRYER FEEDER stated - unable to weigh Height 180.3 cm (5' 11 ) 06/17/2022 10: 46 AM DRYER FEEDER Body Mass Index 18.13 06/17/2022 10:46 AM DRYER FEEDER documented in this encounter Functional Status * [...] documented in this encounter Progress Notes * Susan Gallo NP-C - 06/17/2022 10:40 AM CSTSummary: heel Podiatry Visit Form Reason for Visit: New Patient (New patient - states he has right heel pain - states PCP thinks it might be a pressuresore forming ) History of Present Illness: Patient is here today accompanied by his family members. He is here due to concerns of possible right heel breakdown after admission to the hospital for left leg AKA. He is also here for foot care. ROS: Review of Systems Constitutional: Negative. Respiratory: Negative. Cardiovascular: Negative. Musculoskeletal: Negative. Neurological: Negative. Medications: Current Outpatient Medications: ??? acetaminophen 325 MG tablet, Take 1 tablet (325 mg total) by mouth every 8 (eight) hours as needed for Pain., Disp: 90 tablet, Rfl: 2 ??? amLODIPine 5 MG tablet, Take 1 tablet (5 mg total) by mouth daily., Disp: 90 tablet, Rfl: 1 ??? ASPIRIN 81 OR, Take 81 mg by mouth daily., Disp: , Rfl: ??? ASPIRIN LOW DOSE 81 MG chewable tablet, , Disp: , Rfl: ??? atorvastatin (LIPITOR) 40 MG tablet, 40 mg by Enteral route daily., Disp: , Rfl: ??? ATORVASTATIN 40 MG tablet, TAKE 1 TABLET BY MOUTH EVERY DAY, Disp: 90 tablet, Rfl: 0 ??? bisacodyl (DULCOLAX) 10 MG suppository, Place 10 mg rectally daily as needed., Disp: , Rfl: ??? carboxymethylcellulose (ARTIFICIAL TEARS) 1 % Solution, Place 1 drop into both eyes nightly as needed., Disp: , Rfl: ??? Cholecalciferol 25 MCG (1000 UT) Chew Tab, Chew 1,000 Units by mouth daily., Disp: , Rfl: ??? cloBAZam (ONFI) 10 MG tablet, , Disp: , Rfl: ??? Cyanocobalamin 1000 MCG Cap, Take 1 mg by mouth daily., Disp: , Rfl: ??? diazePAM, 15 MG Dose, (VALTOCO 15 MG DOSE) 2 x 7.5 MG/0.1ML Liquid Therapy Pack, 2 sprays by Nasal route as needed. 1 spray each nostril during a seizure, Disp: 1 each, Rfl: 0 ??? divalproex EC (DEPAKOTE) 500 MG tablet, Take 1,000 mg by mouth 2 (two) times daily., Disp: , Rfl: ??? divalproex EC 250 MG tablet, Take 1 tablet by mouth every 12 (twelve) hours., Disp: , Rfl: ??? divalproex EC 500 MG tablet, Take 1 tablet (500 mg total) by mouth 2 (two) times daily., Disp: 60 tablet, Rfl: 0 ??? fluticasone propionate (FLONASE) 50 MCG/ACT nasal spray, 2 sprays by Nasal route daily., Disp: 16 g, Rfl: 2 ??? folic acid 1 MG tablet, Take 1 tablet by mouth daily., Disp: , Rfl: ??? HEEL/ANKLE PROTECTOR MISC, DME,, Apply to right heel when in bed, Disp: 1 Device, Rfl: 0 ??? ibuprofen 600 MG tablet, Take 600 mg by mouth every 8 (eight) hours as needed., Disp: , Rfl: ??? Lacosamide 200 MG Tab, , Disp: , Rfl: ??? Lacosamide 200 MG Tab, Take 200 mg by mouth 2 (two) times daily., Disp: , Rfl: ??? levETIRAcetam 1000 MG tablet, Take 2 tablets by mouth every 12 (twelve) hours., Disp: , Rfl: ??? loratadine (CLARITIN) 10 MG tablet, Take 1 tablet (10 mg total) by mouth daily., Disp: 30 tablet, Rfl: 2 ??? Multiple Vitamin (ONE DAILY MULTIVITAMIN ADULT) Tab, Take 1 tablet by mouth daily., Disp: , Rfl: ??? ondansetron (ZOFRAN-ODT) 4 MG disintegrating tablet, , Disp: , Rfl: ??? polyethylene glycol (GLYCOLAX) 17 GM/SCOOP powder, Take 17 g by mouth daily., Disp: , Rfl: ??? SILACE 150 MG/15ML syrup, , Disp: , Rfl: ??? tamsulosin (FLOMAX) 0.4 MG Cap, Take 1 capsule (0.4 mg total) by mouth daily., Disp: 90 capsule, Rfl: 1 ??? thiamine 100 MG Tab, 100 mg by Enteral route daily., Disp: , Rfl: ??? vitamin B-1 100 MG Tab, Take 1 tablet (100 mg total) by mouth daily., Disp: 30 tablet, Rfl: 0 ??? vitamin D3, cholecalciferol, 1000 UNIT Tab tablet, Take 1 tablet by mouth daily., Disp: , Rfl: Allergies Allergen Reactions ??? Clonazepam Hallucinations hallucinations Past Medical History: Diagnosis Date ??? Arthritis ??? Dysphagia ??? HLD (hyperlipidemia) ??? Hypertension ??? Seizures (CMS/HCC) ??? Seizures (CMS/HCC) ??? Stroke (CMS/HCC) lt side weakness Past Surgical History: Procedure Laterality Date ??? NONE Social History Socioeconomic History ??? Marital status: Single Tobacco Use ??? Smoking status: Former Packs/day: 0.50 Types: Cigarettes ??? Smokeless tobacco: Never Vaping Use ??? Vaping Use: Never used Substance and Sexual Activity ??? Alcohol use: Not Currently ??? Drug use: No ??? Sexual activity: Not Currently Partners: Female Family History Family history unknown: Yes Constitutional: No distress Psych: Mood & Effect: Oriented To: person, place, time Vascular: Dorsalis pedis, posterior tibial pulse 0/4 bilateral. CFT greater than 3 seconds bilateral digits 1-5 bilateral. Musculoskeletal: Dorsiflexors, plantar flexors, inverters and everters to both lower extremities 5/5 bilateral and symmetrical. Hammer toes 2-4 right. Left AKA. Range of Motion: Subtalar, midtarsal and MTPJ range of motion are decreased. Decreased normal anklejoint dorsiflexion bilateral. Gait/Station: Wheelchair Dermatologic Inspection: Dry, shiny skin with decreased skin turgor and absent pedal hair growth. Right heel at this time does have an area of discoloration with no ulceration at this time. Nails: Right 1-5 discolored and thick-ingrowing Neurologic: Sharp, dull sensations are decreased right. DTRs are weak to right. Normal plantar response. Diagnoses/Impression: 1. Atherosclerosis of artery of right lower extremity (CMS/HCC) DEBRIDEMENT OF NAIL(S), 1-5 2. History of above knee amputation, left (CMS/HCC) 3. Hammer toe of right foot 4. Onychogryphosis DEBRIDEMENT OF NAIL(S), 1-5 Recommendations and Plan: Pathology and treatment options were discussed with the patient today. Keep right heel off of bed/chair-use the heel protector. Mycotic nails were debrided with nail nippers. 70-80% of the nail platewas dbrided. Patient tolerated the procedure well. Follow-up in 3 months. SUSAN GALLO R FEEDER documented in this encounter Plan of Treatment Scheduled Orders Name Type Priority Associated Diagnoses Orde r Schedule DEBRIDEMENT OF NAIL(S), 1-5 Procedures Routine Atherosclerosis of artery of right lower extremity Onychogryphosis Ordered: 06/17/2022 documented as of this encounter Visit Diagnoses Diagnosis Atherosclerosis of artery of right lower extremity (CMS/HCC)- Primary History of above knee amputation, left (CMS/HCC HHS/HCC) Hammer toe of right foot Onychogryphosis Other specified disease of nail documented in this encounter Care Teams Chiropractic Assistant Relationship Specialty Start Date End Date Joyce Luevano NP [address] [place] [address] PCP - General NURSE PRACTITIONER 01/14/20 10/26/23 Frank Toure MD [address] [place] [address] [employer] Tax Collector CARDIOVASCULAR DISEASE 05/30/16 documented as of this encounter
--- OUTSIDE RECORDS SUMMARY | 2024-06-08 05:50 | XMS_ITS | Encounter Summary ---
Author Organization [facility] Address [address] [facility]. [place], [place] [address] [place] [address] Care Team Providers Care Steam Shovel Runner Name Role Phone Frank Toure MD Unavailable Joyce Luevano NP Primary Care Provider Boa ble Encounter Details Date Type Department Care Team (Latest Contact Info) Description 11/03/2021 Travel Social History Tobacco Use Types Packs/Day [...] suspected to have Coronavirus/COVID-19? No / Unsure 11/03/2021 9:40 AM CDT documented as of this encounter [...] on filedocumented in this encounter Care Teams Steam Shovel Runner Relationship Specialty Start Date End Date Joyce Luevano NP [address] [place] [address] PCP - General NURSE PRACTITIONER 01/14/20 10/26/23 Frank Toure MD [address] [place] [address] [employer] Materials Buyer CARDIOVASCULAR DISEASE 05/30/16 documented as of this encounter
--- OUTSIDE RECORDS SUMMARY | 2024-06-08 05:50 | XMS_ITS | Encounter Summary ---
Author Organization [facility] Address [address] [facility] [place] [address] [place] [address] Care Team Providers Care Head Of Visual Merchandising Name Role Phone Frank Toure MD Unavailable Joyce Luevano NP Primary Care Provider Unavaila Marielena Adame MD Primary Care Provider [phone] Encounter Details Date Type Department Care Team (Late st Contact Info) Description 02/23/2022 MyCEvergaget Message Enc [facility] Family Medicine - [address] [address] Joyce Luevano, BOUCHRA Bi Tabor toenail Social History Tobacco Use Types Packs/Day Years [...] Progress Notes * Yonatan Rodriguez RN - 03/03/2022 10:42 AM CDT Please see note. Thanks * Bautista Whitman MA - 03/03/2022 7:31 AM CDT See below. * Yonatan Rodriguez RN - 02/23/2022 10:25 AM CDT Please see attachment. documented in this encounter Plan of Treatment Not on file documented as of this encounter Visit Diagnoses Not on filedocumented in this encounter Care Teams Head Of Visual Merchandising Relationship Specialty Start Date End Date Joyce Luevano NP [address] [place] [address] PCP - General NURSE PRACTITIONER 01/14/20 10/26/23 Marielena Smallwood MD [address] [place] [address] PCP - General FAMILY PRACTICE 10/27/23 Frank Toure MD [address] [place] [address] [employer] [facility]al Health Aide CARDIOVASCULAR DISEASE 05/30/16 documented as of this encounter
--- OUTSIDE RECORDS SUMMARY | 2024-06-08 05:50 | XMS_ITS | Encounter Summary ---
Author Organization [facility] Address [facility]. [place], [place] [address] [place] [address] Care Team Providers Care Interactive Digital Media Specialist Name Role Phone Frank Toure MD Unavailable Joyce Luevano COMPUTERIZED MACHINE FABRIC CUTTER Primary Care Provider Unavaila ble Reason for Visit * Reason Comments Hand Pain * Occupational Therapy (Routine) - Closed Specialty Diagnoses / Procedures Referred By Contact Referred To Contact Occupational Therapy / [facility] Occupational Therapy Diagnoses LT HAND PAIN/KIERAN/WORLEY Procedures EVAL Joyce Luevano, BOUCHRA [address] [place], [place] [address] [place] [address] Occupational Therapy [address] [place] [address] Phone: tel: fax: Referral ID Status Reason Start Date Expiration Date Visits Re quested Visits Authorized [id number] Closed 12/18/2021 12/19/2022 10 10 Encounter Details Date Type Department Care Team (Late st Contact Info) Description 12/18/2021 12:45 PM CDT Office Visit [facility] Occupational Therapy [address] [place] [address] Joyce Luevano NP Klostermann, Emily, OT Hand Pain Social History Tobacco Use Types Packs/Day Years [...] suspected to have Coronavirus/COVID-19? No / Unsure 12/18/2021 12:46 PM CDT documented as of this encounter [...] Jernigan RN Active documented in this encounter Patient Instructions * Patient Instructions* Naa Brice, OT - 12/18/2021 12:45 PM CDT Access Code: [email or web address] URL: [email or web address] Date: 12/18/2021 Prepared by: Naa Brice Exercises Putty Squeezes - 1 x daily - 7 x weekly - 3 sets - 10 reps Tip Pinch with Putty - 1 x daily - 7 x weekly - 3 sets - 10 reps 3-Point Pinch with Putty - 1 x daily - 7 x weekly - 3 sets - 10 reps Robert Pinch with Putty - 1 x daily - 7 x weekly - 3 sets - 10 reps Rolling Putty on Table - 1 x daily - 7 x weekly - 3 sets - 10 reps documented in this encounter Progress Notes * Naa Brice OT - 12/18/2021 12:45 PM CDT Occupational Therapy Evaluation Diagnosis: L hand pain Subjective: Hand pain started in thumb and has spread to all the way through. The pain is worse when it is cold. Pain is worse when opening pill bottles, grasping cups, lifting heavy objects, and repetitive motion. I am R handed. Stated they believe it is arthritis causing the pain. Pain Level 6/10 at its worst 8/10. See patient history. Past Medical History: Diagnosis Date ??? Dysphagia ??? HLD (hyperlipidemia) ??? Hypertension ??? Seizures (CMS/HCC) ??? Seizures (CMS/HCC) ??? Stroke (CMS/HCC) lt side weakness Current Outpatient Medications Medication Instructions ??? acetaminophen (TYLENOL) 325 mg, Oral, Every 8 hours PRN ??? amLODIPine (NORVASC) 5 mg, Oral, Daily ??? ASPIRIN 81 OR 81 mg, Oral, Every 24 hours ??? ATORVASTATIN 40 MG tablet TAKE 1 TABLET BY MOUTH EVERY DAY ??? Cholecalciferol 1,000 Units, Oral, Daily ??? Cyanocobalamin 1 mg, Oral, Daily ??? diazePAM, 15 MG Dose, (VALTOCO 15 MG DOSE) 2 x 7.5 MG/0.1ML Liquid Therapy Pack 2 sprays, Nasal, PRN, 1 spray each nostril during a seizure ??? divalproex EC (DEPAKOTE) 500 mg, Oral, 2 times daily ??? divalproex EC 250 MG tablet 1 tablet, Oral, Every 12 hours ??? folic acid 1 MG tablet 1 tablet, Oral, Every 24 hours ??? ibuprofen (MOTRIN) 600 mg, Oral, Every 8 hours PRN ??? Lacosamide 200 MG Tab TAKE 1 TABLET BY MOUTH TWICE A DAY ??? levETIRAcetam 1000 MG tablet 2 tablets, Oral, Every 12 hours ??? Multiple Vitamin (ONE DAILY MULTIVITAMIN ADULT) Tab 1 tablet, Oral, Daily ??? tamsulosin (FLOMAX) 0.4 mg, Oral, Daily ??? thiamine 100 mg, Oral, Daily ??? vitamin D3, cholecalciferol, 1000 UNIT Tab tablet 1 tablet, Oral, Every 24 hours PPE use: Personal Protective Equipment (PPE) used during visit: Therapist wore medical grade mask throughout the session. Patient wore mask throughout the session. Objective: Orientation: disoriented Direction Following: follows 1 step command inconsistently with repitition Behavior: impulsive and poor command following Attention: redirected and distracted Comments: Pt is a questionable historian and provided inconsistant answers. Pt followed commands inconsistently. Edema: L thumb MPJ:10.5 cm R thumb MPJ: 10 cm L DPC: 19.6 R DPC: 19.6 Palpation: noted tenderness over L thumb MP Sensation: bales swinestein R hand: 3.61 all digits L hand: 4.56 Special tests: CMC grid test negative Bear UE ROM Right Left Active Active Wrist Flexion WFL WFL Wrist Extension WFL WFL Radial Deviation WFL WFL Ulnar Deviation WFL WFL Comments: Pt unable to follow commands to complete MMT Digit ROM (degrees) LT: Active RT: Active Thumb MPJ flex/ext (60??/0??) 60/-10 60/-24 IPJ flex/ext (90??/+10??) 58/+15 62/-4 Abduction (50??/0??) Opposition (fingertip limitation to DPC) WFL WFL Strength (lbs) Rt UE Rt UE Rt UE Mean LT UE LT UE LT UE Mean Gross Grasp 20 35 20 25 5 5 5 5 Firepot Operator And Tender and pinch are measured in lbs. Additional Comments: Pt unable to follow commands for pinch testing 9 hole R: 1 min 14 sec L hand unable to place pegs;41 secs to remove pegs with L PRWHE: 55.5 O: Initial Evaluation completed with patient education on evaluation findings and plan of care. HEP Instruction: verbal, written and demonstrational instruction Timed Codes: (Minutes = Units) 8 to 22=1 23 to 37=2 38 to 52=3 53 to 67=4 Timed Code Tx Minutes 15 Units 1 Total Tx Time 60 15 Therapeutic Exercise Procedures: eval Insurance: [place] medicaid A: Patient demonstrated poor understanding of above education and HEP. Rehab Potential: fair OT COMPLEXITY Profile: High-Extensive medical and therapy history additional review of physical, cognitive and psychosocial history related to performance. Assessment/Performance Deficits: Motor: Stabilizes, Positions, Reaches, Bends, Food Service Kitchen Supervisor, Maniupulates, Coordinates, Moves, Lifts and Endures Process Skills: Attends, Chooses, Inquires and Initiates HIGH (5 or more) Clinical Decision Making Statement/Assessment: HIGH Analytic Complexity Bi Tabor is experiencing increased pain and edema, and decreased strength and ROM in L hand. Pt has difficulty lifting objects, grasping cups and dressing. Bi Tabor has difficulty following commands consistently. Ptwould benefit from skilled OT including fluidotherapy, moist heat, AROM, PROM, manual edema massage, strengthening, FM coordination, independent consultant and pinch strengthening, sensory integration and edema management to address about deficits. Overall Evaluation Complexity Level: Eval - HIGH Bi Tabor presents to the department with the following problems: Increased pain AROM Limitations PROM Limitations Decreased Strength Decreased independent consultant strength Decreased pinch strength Increased edema Impaired sensation His goals have been established collaboratively with the therapist. He has been instructed of the risk and benefits of outpatient occupational therapy and agrees with the plan of care. Patient's Goal: To improve my independent consultant with my L hand. Short Term Goals: (Achieve by: re-eval ) 1. Decrease pain to 6/10 in L hand at its worst or better to improve pain free use of L hand with daily tasks. 2. Independent with HEP to improve use of L hand with daily tasks. 3. Increase independent consultant strength in L hand to 10 lbs or better for grasping drinking glasses. Chain Maker Machine Goals: (Achieve by: d/c ) 1.) Pt will improve PRWHE to 45 or better to improve use of L hand with daily tasks 2.) Pt will improve 9 hole peg with L hand to 1 min 30 sec or better to improve FM coordination P: Skilled occupational therapy to include: AROM, PROM, Strengthening, Manual Therapy, Fluidotherapy, ADL retraining, Patient Education and Home exercise program Next Visit: fluidotherapy or moist heat to start Review HEP and patient education, manual therapy massage, PROM composite flex and thumb flex/ext, AROM, putty exercises, FM coordination, talk with sister to gain more insight to deficits. Frequency: 1 times per 10 week for 10 visits. Therapist: NAA BRICE OT Date: 12/18/21 Time: 1:07 PM Physician Signature: Date: Time: Bi Tabor 1960 Cosigned by Joyce Luevano NP at 01/17/2022 8:56 PM CDT documented in this encounter Plan of Treatment Not on file documented as of this encounter Visit Diagnoses Diagnosis Hand pain, left- Primary Pain in limb Weakness Other malaise and fatigue Stiffness in joint Stiffness of joint, not elsewhere classified, unspecified site documented in this encounter Care Teams Interactive Digital Media Specialist Relationship Specialty Start Date End Date Joyce Luevano NP [address] [place] [address] PCP - General NURSE PRACTITIONER 01/14/20 10/26/23 Frank Toure MD [address] [place] [address] [employer] Outboard System Operator CARDIOVASCULAR DISEASE 05/30/16 documented as of this encounter
--- OUTSIDE RECORDS SUMMARY | 2024-06-08 05:50 | XMS_ITS | Encounter Summary ---
Author Organization [facility] Address [address] [facility]. [place], [place] [address] [place] [address] Care Team Providers Care Repair Armature Winder Helper Name Role Phone Frank Toure MD Unavailable Joyce Luevano NP Primary Care Provider Boa ble Encounter Details Date Type Department Care Team (Latest Contact Info) Description 12/18/2021 Travel Social History Tobacco Use Types Packs/Day [...] on filedocumented in this encounter Care Teams Repair Armature Winder Helper Relationship Specialty Start Date End Date Joyce Luevano NP [address] [place] [address] PCP - General NURSE PRACTITIONER 01/14/20 10/26/23 Frank Toure MD [address] [place] [address] [employer] Acute Care Certified Nursing Assistant CARDIOVASCULAR DISEASE 05/30/16 documented as of this encounter
--- OUTSIDE RECORDS SUMMARY | 2024-06-08 05:50 | XMS_ITS | Encounter Summary ---
Author Organization [facility] Address [address] [facility]. [place], [place] [address] [place] [address] Care Team Providers Care Clerk Secretary Name Role Phone Frank Toure MD Unavailable Joyce Luevano NP Primary Care Provider Boa ble Encounter Details Date Type Department Care Team (Latest Contact Info) Description 12/15/2021 Travel Social History Tobacco Use Types Packs/Day [...] suspected to have Coronavirus/COVID-19? No / Unsure 12/15/2021 2:20 PM CDT documented as of this encounter [...] on filedocumented in this encounter Care Teams Clerk Secretary Relationship Specialty Start Date End Date Joyce Luevano NP [address] [place] [address] PCP - General NURSE PRACTITIONER 01/14/20 10/26/23 Frank Toure MD [address] [place] [address] [employer] Summer Law Clerk CARDIOVASCULAR DISEASE 05/30/16 documented as of this encounter
--- OUTSIDE RECORDS SUMMARY | 2024-06-08 05:50 | XMS_ITS | Encounter Summary ---
Author Organization [facility] Address [address] [facility]. [place], [place] [address] [place] [address] Care Team Providers Care Car Rental Deliverer Name Role Phone Frank Toure MD Unavailable Joyce Luevano NP Primary Care Provider Boa ble Encounter Details Date Type Department Care Team (Latest Contact Info) Description 12/01/2021 Travel Social History Tobacco Use Types Packs/Day [...] suspected to have Coronavirus/COVID-19? No / Unsure 12/01/2021 2:07 PM CDT documented as of this encounter [...] on filedocumented in this encounter Care Teams Car Rental Deliverer Relationship Specialty Start Date End Date Joyce Luevano NP [address] [place] [address] PCP - General NURSE PRACTITIONER 01/14/20 10/26/23 Frank Toure MD [address] [place] [address] [employer] Rental Counter Clerk CARDIOVASCULAR DISEASE 05/30/16 documented as of this encounter
--- OUTSIDE RECORDS SUMMARY | 2024-06-08 05:50 | XMS_ITS | Encounter Summary ---
Author Organization [facility] Address [address] [facility]. [place], [place] [address] [place] [address] Care Team Providers Care Printer Slotter Helper Name Role Phone Frank Toure MD Unavailable Joyce Luevano NP Primary Care Provider Boa ble Encounter Details Date Type Department Care Team (Latest Contact Info) Description 11/25/2021 Travel Social History Tobacco Use Types Packs/Day [...] suspected to have Coronavirus/COVID-19? No / Unsure 11/25/2021 1:31 PM CDT documented as of this encounter [...] on filedocumented in this encounter Care Teams Printer Slotter Helper Relationship Specialty Start Date End Date Joyce Luevano NP [address] [place] [address] PCP - General NURSE PRACTITIONER 01/14/20 10/26/23 Frank Toure MD [address] [place] [address] [employer]ivo Horticulture Superintendent CARDIOVASCULAR DISEASE 05/30/16 documented as of this encounter
--- OUTSIDE RECORDS SUMMARY | 2024-06-08 05:50 | XMS_ITS | Encounter Summary ---
Author Organization [facility] Address [address]. [place], [place] [address] [place] [address] Care Team Providers Care Junior Paralegal Name Role Phone Frank Toure MD Unavailable Joyce Luevano NP Primary Care Provider Boa ble Encounter Details Date Type Department Care Team (Latest Contact Info) Description 12/08/2021 Travel Social History Tobacco Use Types Packs/Day [...] suspected to have Coronavirus/COVID-19? No / Unsure 12/08/2021 2:20 PM CDT documented as of this [...] on filedocumented in this encounter Care Teams Junior Paralegal Relationship Specialty Start Date End Date Joyce Luevano NP [address] [place] [address] PCP - General NURSE PRACTITIONER 01/14/20 10/26/23 Frank Toure MD [address] [place] [address] [employer] Technology Specialist CARDIOVASCULAR DISEASE 05/30/16 documented as of this encounter
--- OUTSIDE RECORDS SUMMARY | 2024-06-08 05:50 | XMS_ITS | Encounter Summary ---
Author Organization [facility] Address [address] [facility] [place] [address] [place] [address] Care Team Providers Care Education Rep Name Role Phone Frank Toure MD Unavailable Joyce Luevano NP Primary Care Provider Boa ble Encounter Details Date Type Department Care Team (Late st Contact Info) Description 08/03/2021 Orders Only [facility] Family Medicine - [address] [phone] Joyce Luevano, BOUCHRA Social History Tobacco Use Types Packs/Day Years [...] suspected to have Coronavirus/COVID-19? No / Unsure 07/30/2021 9:22 AM AUTOMOBILE ACCESSORIES SALESPERSON documented as of this encounter Functional Status [...] Progress Notes * Joyce Luevano NP - 08/03/2021 6:50 PM CST Received a call from ton container shipper provider. She states that she receive a call from patient's sister stating that pharmacy does not have MOBILE ACCESSORIES SALESPERSON documented in this encounter Plan of Treatment Not on file documented as of this encounter Visit Diagnoses Diagnosis Primary hypertension- Primary Unspecified essential hypertension Seizure ([facility]) Other convulsions Urinary retention Retention of urine, unspecified Mixed hyperlipidemia documented in this encounter Care Teams Education Rep Relationship Specialty Start Date End Date Joyce Luevano NP [address] [place] [address] PCP - General NURSE PRACTITIONER 01/14/20 10/26/23 Frank Toure MD [address] [place] [address] [employer] Special Agent CARDIOVASCULAR DISEASE 05/30/16 documented as of this encounter
--- OUTSIDE RECORDS SUMMARY | 2024-06-08 05:50 | XMS_ITS | Encounter Summary ---
Author Organization [facility] Address [address] [facility]. [place], [place] [address] [place] [address] Care Team Providers Care Bar And Filler Assembler Name Role Phone Frank Toure MD Unavailable Joyce Luevano NP Primary Care Provider Unavaila ble Encounter Details Date Type Department Care Team (Latest Contact Info) Description 11/17/2021 Scan HEALTH INFO SRVCS Scanned, Documents Social History Tobacco Use Types Packs/Day Years [...] on filedocumented in this encounter Care Teams Bar And Filler Assembler Relationship Specialty Start Date End Date Joyce Leuvano NP [address] [place] [address] PCP - General NURSE PRACTITIONER 01/14/20 10/26/23 Frank Toure MD [address] [place] [address] [employer] Last Picker CARDIOVASCULAR DISEASE 05/30/16 documented as of this encounter
--- OUTSIDE RECORDS SUMMARY | 2024-06-08 05:50 | XMS_ITS | Encounter Summary ---
Author Organization [facility] Address [address] [place] [address]. [place], [place] [address] [place] [address] Care Team Providers Care Batch Room Technician Name Role Phone Frank Toure MD Unavailable Joyce Luevano NP Primary Care Provider Unavaila ble Reason for Visit * Reason Onset Date Comments Medication Request 07/31/2021 Encounter Details Date Type Department Care Team (Late st Contact Info) Description 07/31/[address] [facility] Medical [facility] Family Medicine - [address] [phone] Joyce Luevano NP Medication Request Social History Tobacco Use Types Packs/Day [...] Coronavirus/COVID-19? No / Unsure 07/30/2021 9:22 AM METAL BURNISHER documented as of this encounter Functional Status [...] Progress Notes * Bautista Whitman MA - 07/31/2021 11:29 AM CST Joyce quintanilla spoke to Dup[place]er regarding this matter. L BURNISHER * Ramya Ernst - 07/31/2021 7:19 AM CST Adriane called today and stated pt hasn't gotten his medication yet and Adriane is wanting to know why it wasn't done yet. Send scripts to [facility] on [facility] and Adriane wants a call letting her know that the scripts were called in L BURNISHER documented in this encounter Plan of Treatment Not on file documented as of this encounter Visit Diagnoses Not on filedocumented in this encounter Care Teams Batch Room Technician Relationship Specialty Start Date End Date Joyce Luevano NP [address] [place] [address] PCP - General NURSE PRACTITIONER 01/14/20 10/26/23 Frank Toure MD [address] [place] [address] [employer] Blending Technician CARDIOVASCULAR DISEASE 05/30/16 documented as of this encounter
--- OUTSIDE RECORDS SUMMARY | 2024-06-08 05:50 | XMS_ITS | Encounter Summary ---
Author Organization [facility] Address [facility]. [place], [place] [address] [place] [address] Care Team Providers Care Research Nurse Name Role Phone Frank Toure MD Unavailable Joyce Luevano WELL LOGGER Primary Care Provider Unavaila ble Reason for Visit * Reason Comments Initial Evaluation * Physical Medicine (Routine) - Closed Specialty Diagnoses / Procedures Referred By Anabella dan Referred To Contact PHYSICAL THERAPY / [facility] Physical Therapy Diagnoses Gait instability Difficulty transferring Joyce Luevano, WELL LOGGER [address] [place], [place] [address] [place] [address] Physical Therapy [address] [place] [address] Phone: tel: fax: Referral ID Status Reason Start Date Expiration Date V isits Requested Visits Authorized [id number] Closed Physical Therapy 11/03/2021 11/04/2022 6 6 Encounter Details Date Type Department Care Team (Late st Contact Info) Description 11/25/2021 1:45 PM CDT Office Visit [facility] Physical Therapy [address] [place], [place] [address] Joyce Luevano, Malu Kim, PT Initial Evaluation Social History Tobacco Use Types Packs/Day Years [...] In the last 10 days, have tayo porras been in contact with someone who was [...] documented in this encounter Progress Notes * Malu Evans, PT - 11/25/2021 1:45 PM CDT Physical Therapy Evaluation: Date: 11/25/2021 Patient Name: Bi Tabor : 1960 Diagnosis: The encounter diagnosis was Gait disturbance. Subjective Chief complaint: Patient reports difficulty walking and with transfers. Also reports LT hand pain and is requesting an OT script. Patient reports he lives independently and spends most of his time inhis wheelchair. Has a rollator, but does not use it much. His sister checks on him every day. Patient's sister not present during evaluation and patient unable to answer subjective questions regarding health status. Reports is having a seizure at least once a week at this time, but is on medication. BP has been high, but he is on medications. Reports low back pain when he sits all day Mechanism of injury: chronic debility Alleviating factors: unknown Aggravating factors walking, fatigue Pain scale: current 5/10 low back Type of pain: dull ache Past medical history: seizures, HTN, PMH ETOH abuse See scanned history forms for more comprehensive subjective information. Objective GAIT: ambulates Stephan with wheeled walker. Narrow base of support and forward trunk flexion. Shuffling gait pattern. Ambulates 30feet with decreased safety awareness with turns. TRANSFER: Sit to stand: Stephan for second half of concentric rise. Increased time required Stand to sit: Stephan for safety, decreased eccentric control to lower COGNITIVE: alert to person, place, and time. LE STRENGTH: HIP STRENGTH Left Right Hip flexion 3/5 3/5 Hip extension 3/5 3/5 Hip abduction 3+/5 3/5 Hip adduction 5/5 5/5 KNEE STRENGTH Left Right Knee flexion 4/5 4-/5 Knee extension 4/5 4/5 ANKLE STRENGTH Left Right Dorsiflexion 4/5 4/5 Plantarflexion 4/5 4/5 Sensation: WNL Treatment Today: Initial Evaluation completed with patient education on evaluation findings and plan of care Assessment Eval Complexity Personal Factor/Co-morbidities: Chronicity, Context of Patient Lives, HTN Examination of Body Systems Needing Addressed 4 or more (High) gait/mobility deficits, LE Deficits, Standing Deficits, Vitals Need Monitoring Clinical Presentation of Present Unstable (High) Unpredictable and unstable characteristics - Close monitoring of symptoms for possible red flags, seizures - current and frequent Clinical Decision Making High Timed Code Tx Minutes 0 Units 0 Total Tx time45. eval only High Medical Diagnosis: Encounter Diagnoses Name SNOMED CT(R) Primary? Gait disturbance ABNORMAL GAIT Yes Treatment Diagnosis Ataxic gait Muscle weakness (generalized-multiple) back pain Patient demonstrated Good understanding of above education and HEP. Rehab Potential Good Assessment: Patient is a 61 year old male presenting with gait, mobility, and transfer deficits as well as decreased LE strength. Patient to benefit from skilled physical therapy to address above deficits to improve safety with independent living. Therapy goals to be reached by discharge: 1. Patient to report decrease in overall pain levels to no greater than 4/10 for improved quality of life 2. Will with HEP - to be finalized by d/c 3. Improved bilateral LE strength by at least 1/3 muscle grade for improved tolerance to sit to stands, prolonged standing and walking, and stairs 4. Patient to ambulate at least 150feet with least restrictive AD and good safety awareness Patient to be seen for balance, body mechanics education, flexibilty, gait, home exercise program, instruction in self-help/behavior modification, manual therapy, modalities, neuromuscular reeducation, posture education, PRN, ROM, strengthening. Next visit: review HEP and patient education. Begin SciFit, transfer training, gait training, gait drills, step ups, sit to stands. LE mobility exercises for back pain. Frequency 6 visits Therapist MALU EVANS PT, DPT Date: 11/25/21 Time: 1:43 PM Physician signature: Date: Time: Patient Name: Bi Tabor : 1960 Cosigned by Joyce Luevano NP at 01/17/2022 8:49 PM CDT documented in this encounter Plan of Treatment Not on file documented as of this encounter Visit Diagnoses Diagnosis Gait disturbance- Primary Abnormality of gait documented in this encounter Care Teams Research Nurse Relationship Specialty Start Date End Date Joyce Luevano NP [address] [place] [address] PCP - General NURSE PRACTITIONER 01/14/20 10/26/23 Frank Toure MD [address] [place] [address] [employer] Nut Former CARDIOVASCULAR DISEASE 05/30/16 documented as of this encounter
--- OUTSIDE RECORDS SUMMARY | 2024-06-08 05:50 | XMS_ITS | Encounter Summary ---
Author Organization [facility] Address [address] [facility]. [place], [place] [address] [place] [address] Care Team Providers Care Scrap Worker Name Role Phone Frank Toure MD Unavailable Chas Luevano NP Primary Care Provider Unavaila ble Reason for Visit * Reason Onset Date Comments Medication Request 08/31/2021 Encounter Details Date Type Department Care Team (Late st Contact Info) Description 08/31/2021 Telephone [facility] Medical Group Family Medicine - [address] [phone] Chas Luevano NP Medication Request Social History Tobacco [...] documented in this encounter Progress Notes * Chas Luevano NP - 09/01/2021 3:30 PM CDT Order sent in. * Chas Luevano NP - 09/01/2021 3:30 PM CDTAddended by: CHAS LUEVANO on: 09/01/2021 03:30 PM Modules accepted: Orders * Bautista Whitman MA - 09/01/2021 2:04 PM CDT After speaking with Chas about the pharmacies, I called the [facility] and they said they do have lacosamide 200mg tablets in stock but there was no active scripts at the [facility]. The pharmacist said they would need a new scripts sent in order to fill. * Ramya Ernst - 09/01/2021 1:12 PM CDT pts sister Adriane called office back and is wanting pts Lacosamide script to go to [facility] on [address] [place] [address] due to they have the medication now * Chas Luevano NP - 09/01/2021 8:16 AM CDTAddended by: CHAS LUEVANO on: 09/01/2021 08:16 AM Modules accepted: Orders * Nereyda Dove RN - 08/31/2021 2:36 PM CDTAddended by: NEREYDA DOVE on: 08/31/2021 02:36 PM Modules accepted: Orders * Nereyda Dove RN - 08/31/2021 2:35 PM CDT RX pended to [facility] for approval or refusal to go to [facility] on [facility] * Delilah Cloud - 08/31/2021 2:27 PM CDT Patient's sister called and said that [facility] does not have Lac[facility]amide and for her to call around. She called [facility] in [place] on [facility], and they do have it. Patient would need a new script sent there. documented in this encounter Plan of Treatment Not on file documented as of this encounter Visit Diagnoses Diagnosis Seizure ([facility]) Other convulsions documented in this encounter Care Teams Scrap Worker Relationship Specialty Start Date End Date Chas Luevano NP [address] [place] [address] PCP - General NURSE PRACTITIONER 01/14/20 10/26/23 Frank Toure MD [address] [place] [address] [place] Physician Relations Specialist CARDIOVASCULAR DISEASE 05/30/16 documented as of this encounter
--- OUTSIDE RECORDS SUMMARY | 2024-06-08 05:50 | XMS_ITS | Encounter Summary ---
Author Organization [facility] Address [address] [facility]. [place], [place] [address] [place] [address] Care Team Providers Care Box Lidder Name Role Phone Frank Toure MD Unavailable Joyce Luevano LABOR RELATIONS REPRESENTATIVE Primary Care Provider Unavaila ble Reason for Referral * Physical Medicine (Routine) - Closed Specialty Diagnoses / Procedures Referred By Anabella dan Referred To Contact PHYSICAL THERAPY / [facility] Physical Therapy Diagnoses Gait instability Difficulty transferring Joyce Luevano NP [address] [place], [place] [address] [place] [address] Physical Therapy [address] [place] [address] Phone: tel: fax: Referral ID Status Reason Start Date Expiration Date V isits Requested Visits Authorized [id number] Closed Physical Therapy 11/03/2021 11/04/2022 6 6 Reason for Visit * Reason Comments Follow Up Initial visit from [facility]. Would like to see about getting PT. Encounter Details Date Type Department Care Team ([facility] st Contact Info) Description 11/03/2021 9:40 AM CDT Office Visit [facility] Medical Group Family Medicine - [address] [phone] Joyce Luevano NP Follow Up (Initial visit from skilled nursing. Would like to see about getting PT.) Social History Tobacco Use Types Packs/Day Years [...] Sign Reading Time Taken Comments Blood Pressure 128/70 11/03/2021 9:54 AM CDT Pulse 78 11/03/2021 9:54 AM CDT Temperature 36 ??C (96.8 ??F) 11/03/2021 9:54 AM CDT Respiratory Rate 18 11/03/2021 9:54 AM CDT Oxygen Saturation 99% 11/03/2021 9:54 AM CDT Inhaled Oxygen Concentration - - Weight 59.1 kg (130 lb 6.4 oz) 11/03/2021 9:54 A M CDT Height 180.3 cm (5' 11 ) 11/03/2021 9:54 AM CDT Body Mass Index 18.19 11/03/2021 9:54 AM CDT documented in this encounter Functional [...] Progress Notes * Joyce Luevano NP - 11/03/2021 9:40 AM CDT Images from the original note were not included. OFFICE FOLLOW UP NOTE Encounter Date: 11/25/2021 Chief Complaint: 61-year-old male presents for Follow Up (Initial visit from skilled nursing. Would like to see about getting PT.) . Comes in for follow up Hypertension He and sister reports compliance with meds bp normal today Plan Low salt diet Continue medications Hyperlipidemia On statin No muscle aches or weakness Plan Continue medication Seizure He is under the care of neurologist at [facility] There have been some changes to his medications He seems more alert today They have no medical concerns today Follow up in office in 6 months; sooner if needed Review of Systems Constitutional: Negative for chills and fever. Respiratory: Negative for cough, shortness of breath and wheezing. Cardiovascular: Negative for chest pain. Gastrointestinal: Negative for nausea and vomiting. Neurological: Negative for headaches. Patient Active Problem List Diagnosis ??? Seizure (CMS/HCC) ??? Osteoporosis ??? UTI (urinary tract infection) ??? Encephalopathy acute ??? Cerebrovascular accident (CVA) due to thrombosis of right posterior cerebral artery (CMS/HCC) ??? Hyperlipidemia ??? Hypertension ??? Seizure (CMS/HCC) ??? Encephalopathy ??? Headache, unspecified headache type Past Medical History: Diagnosis Date ??? Dysphagia ??? HLD (hyperlipidemia) ??? Hypertension ??? Seizures (CMS/HCC) ??? Seizures (CMS/HCC) ??? Stroke (CMS/HCC) lt side weakness History Smoking Status ??? Former Smoker ??? Packs/day: 0.50 Smokeless Tobacco ??? Never Used Social History Substance and Sexual Activity Alcohol Use No Social History Substance and Sexual Activity Drug Use No Family History Family history unknown: Yes Immunization History Administered Date(s) Administered ??? Tdap (Boostrix) 06/06/2017 Current Outpatient Medications Medication Sig Dispense Refill [...] Chew 1,000 Units by mouth daily. ??? Cyanocobalamin 1000 MCG Cap Take 1 mg by mouth daily. ??? diazePAM, 15 MG Dose, (VALTOCO 15 MG DOSE) 2 x 7.5 MG/0.1ML Liquid Therapy Pack 2 sprays by Nasal route as needed. 1 spray each nostril during a seizure 1 each 0 ??? divalproex EC 500 MG tablet Take 1 tablet (500 mg total) by mouth 2 (two) times daily. 60 tablet 0 ??? folic acid 1 MG tablet Take 1 tablet by mouth daily. ??? ibuprofen 600 MG tablet Take 600 mg by mouth every 8 (eight) hours as needed. ??? levETIRAcetam 1000 MG tablet Take 2 tablets by mouth every 12 (twelve) hours. ??? Multiple Vitamin (ONE DAILY MULTIVITAMIN ADULT) Tab Take 1 tablet by mouth daily. ??? tamsulosin (FLOMAX) 0.4 MG Cap Take 1 capsule (0.4 mg total) by mouth daily. 90 capsule 1 ??? vitamin B-1 100 MG Tab Take 1 tablet (100 mg total) by mouth daily. 30 tablet 0 ??? vitamin D3, cholecalciferol, 1000 UNIT Tab tablet Take 1 tablet by mouth daily. ??? divalproex EC 250 MG tablet Take 1 tablet by mouth every 12 (twelve) hours. ??? Lacosamide 200 MG Tab TAKE 1 TABLET BY MOUTH TWICE A DAY No current facility-administered medications for this visit. No Known Allergies Objective: Filed Vitals: 11/03/21 0954 BP: 128/70 Pulse: 78 Resp: 18 Temp: 96.8 ??F (36 ??C) TempSrc: Temporal SpO2: 99% Weight: 59.1 kg (130 lb 6.4 oz) Height: 5' 11 (1.803 m) Body mass index is 18.19 kg/m??. No LMP for male patient. Physical Exam Cardiovascular: Rate and Rhythm: Normal rate and regular rhythm. Heart sounds: Normal heart sounds. Pulmonary: Effort: Pulmonary effort is normal. Breath sounds: Normal breath sounds. Musculoskeletal: Right lower leg: No edema. Left lower leg: No edema. Skin: General: Skin is warm and dry. Neurological: Mental Status: He is alert and oriented to person, place, and time. Gait: Gait is intact. Assessment: Encounter Diagnose(s) ICD-10-CM ICD-9-CM 1. Gait instability R26.81 781.2 Ambulatory referral to Physical Therapy 2. Seizure (CMS/HCC) R56.9 780.39 3. Difficulty transferring R68.89 780.99 Ambulatory referral to Physical Therapy 4. Primary hypertension I10 401.9 5. Mixed hyperlipidemia E78.2 272.2 LIPID PANEL 6. Screening for prostate cancer Z12.5 V76.44 PROSTATE SPECIFIC ANTIGEN,SCREENING Plan: Bi was seen today for follow up. Diagnoses and all orders for this visit: Gait instability - Ambulatory referral to Physical Therapy Seizure (CMS/HCC) Difficulty transferring - Ambulatory referral to Physical Therapy Primary hypertension Mixed hyperlipidemia - LIPID PANEL; Future Screening for prostate cancer - PROSTATE SPECIFIC ANTIGEN,SCREENING; Future Discussed plan of care with patient. Patient verbalized understanding. [place]- documented in this encounter Plan of Treatment Scheduled Referrals Name Type Priority Associated Diagnoses Orde r Schedule Ambulatory referral to Physical Therapy Referral Routine Gait instability Difficulty transferring Ordered: 11/03/2021 documented as of this encounter Visit Diagnoses Diagnosis Gait instability- Primary Abnormality of gait Seizure (CMS/HCC HHS/HCC) Other convulsions Difficulty transferring Primary hypertension Unspecified essential hypertension Mixed hyperlipidemia Screening for prostate cancer Special screening for malignant neoplasm of prostate documented in this encounter Care Teams Box Lidder Relationship Specialty Start Date End Date Joyce Luevano NP [address] [place] [address] PCP - General NURSE PRACTITIONER 01/14/20 10/26/23 Frank Toure MD [address] [place] [address] [employer] Fondant Puff Maker CARDIOVASCULAR DISEASE 05/30/16 documented as of this encounter
--- OUTSIDE RECORDS SUMMARY | 2024-06-08 05:50 | XMS_ITS | Encounter Summary ---
Author Organization [facility] Address [address] [facility]. [place], [place] [address] [place] [address] Care Team Providers Care Lithographic Camera Operator Name Role Phone Frank Toure MD Unavailable Joyce Luevano NP Primary Care Provider Unavaila ble Encounter Details Date Type Department Care Team (Latest Contact Info) Description 09/01/2021 Scan HEALTH INFO SRVCS Scanned, Documents Social [...] suspected to have Coronavirus/COVID-19? No / Unsure 09/08/2021 11:51 AM CDT documented as of this encounter [...] on filedocumented in this encounter Care Teams Lithographic Camera Operator Relationship Specialty Start Date End Date Joyce Luevano NP [address] [place] [address] PCP - General NURSE PRACTITIONER 01/14/20 10/26/23 Frank Toure MD [address] [place] [address] [employer] Benefit Authorizer CARDIOVASCULAR DISEASE 05/30/16 documented as of this encounter
--- OUTSIDE RECORDS SUMMARY | 2024-06-08 05:50 | XMS_ITS | Encounter Summary ---
Author Organization [facility] Address [address] [facility]. [place], [place] [address] [place] [address] Care Team Providers Care Customer Counter Associate Name Role Phone Frank Toure MD Unavailable Joyce Luevano NP Primary Care Provider Unavaila ble Encounter Details Date Type Department Care Team (Latest Contact Info) Description 08/28/2021 Scan HEALTH INFO SRVCS Scanned, Documents Social [...] on filedocumented in this encounter Care Teams Customer Counter Associate Relationship Specialty Start Date End Date Joyce Luevano NP [address] [place] [address] PCP - General NURSE PRACTITIONER 01/14/20 10/26/23 Frank Toure MD [address] [place] [address] [employer] Clinical Courier CARDIOVASCULAR DISEASE 05/30/16 documented as of this encounter
--- OUTSIDE RECORDS SUMMARY | 2024-06-08 05:50 | XMS_ITS | Encounter Summary ---
Author Organization [facility] Address [address] [facility] [place] [address] [place] [address] Care Team Providers Care Broaching Machine Set Up Operator Name Role Phone Frank Toure MD Unavailable Joyce Luevano CUSTOM LEATHER PRODUCTS MAKER Primary Care Provider Unavaila ble Reason for Visit * Reason Comments Discharge Summary Encounter Details Date Type Department Care Team (Late st Contact Info) Description 02/10/2022 Hosp Visit [facility] [address] [place] [address] Malu Jay, PT Discharge Summary Social History Tobacco Use Types Packs/Day Years [...] Progress Notes * Malu Evans, PT - 02/10/2022 3:17 PM CDT PHYSICAL THERAPY DISCHARGE NOTE - UNPLANNED Bi Tabor : 1960 Thank you for referring Bi Tabor to outpatient physical therapy for weakness. The patient completed 5 visits and then failed to attend further appointments due to being hospitalized for seizureactivity. Patient was last seen for PT 12/15/2021. Patient will be discharged from therapy at this time. Please do not hesitate to contact me if you have any questions regarding their care. MALU EVANS PT, DPT 02/10/2022 3:17 PM SIGNATURE: DATE/TIME: Cosigned by Joyce Luevano NP at 02/22/2022 5:24 PM CDT documented in this encounter Plan of Treatment Not on file documented as of this encounter Visit Diagnoses Not on filedocumented in this encounter Care Teams Broaching Machine Set Up Operator Relationship Specialty Start Date End Date Joyce Luevano NP [address] [place] [address] PCP - General NURSE PRACTITIONER 01/14/20 10/26/23 [place] [address] [place] [address] [employer] Production Controller CARDIOVASCULAR DISEASE 05/30/16 documented as of this encounter
--- OUTSIDE RECORDS SUMMARY | 2024-06-08 05:50 | XMS_ITS | Encounter Summary ---
Author Organization [facility] Address [address] [facility] [place] [address] [place] [address] Care Team Providers Care Database Reporting Consultant Name Role Phone Frank Toure MD Unavailable Joyce Luevano NP Primary Care Provider Unavaila ble Reason for Visit * Reason Comments Hypertension Pt states he is here for a check up because he just moved from a assisted to his own apartment. Encounter Details Date Type Department Care Team (Late st Contact Info) Description 07/30/2021 9:40 AM HEALTH OCCUPATIONS INSTRUCTOR Office Visit [facility] Family Medicine - [address] [address] Joyce Luevano NP Hypertension (Pt states he is here for a check up because he just moved from a assisted to his own apartment.) Social History Tobacco Use Types Packs/Day Years [...] Coronavirus/COVID-19? No / Unsure 07/30/2021 9:22 AM HEALTH OCCUPATIONS INSTRUCTOR documented as of this encounter Last Filed Vital Signs Vital Sign Reading Time Taken Comments Blood Pressure 100/60 07/30/2021 9:44 AM HEALTH OCCUPATIONS INSTRUCTOR Pulse 62 07/30/2021 9:44 AM HEALTH OCCUPATIONS INSTRUCTOR Temperature 36.1 ??C (97 ??F) 07/30/2021 9:44 AM HEALTH OCCUPATIONS INSTRUCTOR Respiratory Rate 16 07/30/2021 9:44 AM HEALTH OCCUPATIONS INSTRUCTOR Oxygen Saturation 99% 07/30/2021 9:44 AM HEALTH OCCUPATIONS INSTRUCTOR Inhaled Oxygen Concentration - - Weight 57.5 kg (126 lb 12.8 oz) 07/30/2021 9:44 AM HEALTH OCCUPATIONS INSTRUCTOR Height 180.3 cm (5' 11 ) 07/30/2021 9:44 AM HEALTH OCCUPATIONS INSTRUCTOR Body Mass Index 17.69 07/30/2021 9:44 AM HEALTH OCCUPATIONS INSTRUCTOR documented in this encounter Functional Status * [...] PM KASIT Anahi Jernigan RN Active * Do you [...] Progress Notes * Joyce Luevano NP - 07/30/2021 9:40 AM CST Images from the original note were not included. OFFICE FOLLOW UP NOTE Encounter Date: 08/01/2021 Chief Complaint: 61-year-old male presents for Hypertension (Pt states he is here for a check up because he just moved from a assisted to his own apartment.) . Comes in for follow up He was recently released from correction facility He is now living in an apartment alone with the help of his family for medications and meals He is here with his sister today for follow up and medication refills Sister states that he was released without all his medication She does have his discharge paperwork and current med list seizure He has not had any seizures since his discharge He was under the care of neurologist at [facility] and plans to return to them but needs med refills in the interim They have no medical concerns today Review of Systems Constitutional: Negative for chills [...] 2 ??? amLODIPine 5 MG tablet Take 5 mg by mouth daily. ??? ASPIRIN 81 OR Take 81 mg by mouth daily. ??? atorvastatin 40 MG tablet Take 40 mg by mouth daily. ??? diazePAM, 15 MG Dose, (VALTOCO 15 MG DOSE) 2 x 7.5 MG/0.1ML Liquid Therapy Pack 2 sprays by Nasal route as needed. 1 spray each nostril during a seizure 1 each 0 ??? divalproex EC 250 MG tablet Take 1 tablet (250 mg total) by mouth 2 (two) times daily. 60 tablet 2 ??? divalproex EC 500 MG tablet Take 1 tablet (500 mg total) by mouth 2 (two) times daily. 60 tablet 0 ??? folic acid 1 MG tablet Take 1 tablet by mouth daily. ??? ibuprofen 600 MG tablet Take 600 mg by mouth every 8 (eight) hours as needed. ??? Lacosamide 200 MG Tab Take 200 mg by mouth 2 (two) times a day. 60 tablet 0 ??? levETIRAcetam 1000 MG tablet Take 2 tablets (2,000 mg total) by mouth 2 (two) times daily. 60 tablet 0 ??? Multiple Vitamin (ONE DAILY MULTIVITAMIN ADULT) Tab Take 1 tablet by mouth daily. ??? tamsulosin (FLOMAX) 0.4 MG Cap Take 1 capsule (0.4 mg total) by mouth daily. 90 capsule 1 ??? vitamin B-1 100 MG Tab Take 1 tablet (100 mg total) by mouth daily. 30 tablet 0 ??? vitamin D3, cholecalciferol, (CHOLECALCIFEROL) 1000 UNIT Tab tablet Take 1 tablet by mouth daily. ??? aspirin EC (ASPIRIN EC) 81 MG tablet Take 81 mg by mouth daily. No current facility-administered medications for this visit. No Known Allergies Objective: Filed Vitals: 07/30/21 0944 BP: 100/60 Pulse: 62 Resp: 16 Temp: 97 ??F (36.1 ??C) TempSrc: Temporal SpO2: 99% Weight: 57.5 kg (126 lb 12.8 oz) Height: 5' 11 (1.803 m) Body mass index is 17.69 kg/m??. No LMP for male patient. Physical Exam HENT: Mouth/Throat: Dentition: Normal dentition. Comments: Missing multiple teeth Cardiovascular: Rate and Rhythm: Normal rate and regular rhythm. Heart sounds: Normal heart sounds. Pulmonary: Effort: Pulmonary effort is normal. Breath sounds: Normal breath sounds. Skin: General: Skin is warm and dry. Neurological: Mental Status: He is alert and oriented to person, place, and time. Gait: Gait is intact. Psychiatric: Cognition and Memory: Cognition normal. Comments: Alert and oriented to person and place He occasionally dozing off during visit but quick to respond Assessment: Encounter Diagnose(s) ICD-10-CM ICD-9-CM 1. Seizure (CMS/HCC) R56.9 780.39 divalproex EC 500 MG tablet divalproex EC 250 MG tablet Lacosamide 200 MG Tab diazePAM, 15 MG Dose, (VALTOCO 15 MG DOSE) 2 x 7.5 MG/0.1ML Liquid Therapy Pack Plan: Bi was seen today for hypertension. Diagnoses and all orders for this visit: Seizure (CMS/HCC) - divalproex EC 500 MG tablet; Take 1 tablet (500 mg total) by mouth 2 (two) times daily. - divalproex EC 250 MG tablet; Take 1 tablet (250 mg total) by mouth 2 (two) times daily. - Lacosamide 200 MG Tab; Take 200 mg by mouth 2 (two) times a day. - diazePAM, 15 MG Dose, (VALTOCO 15 MG DOSE) 2 x 7.5 MG/0.1ML Liquid Therapy Pack; 2 sprays by Nasal route as needed. 1 spray each nostril during a seizure Other orders The following orders have not been finalized: - Cancel: Lacosamide 200 MG Tab Call and make follow up appointment for U Sister states that she is [facility] She reports he had recent labs at the assisted and will have them sent to me as they did not come with the discharge paperwork they sent to the office. I will order labs if he does not have them at our follow up in 1 month I spent 40 minutes today reviewing the patient's medical record, performing an exam, ordering medications, tests, and/or procedures, documenting in the medical record and counseling and educating thepatient/family/caregiver. Discussed plan of care with patient. Patient verbalized understanding. MEGAN Bay TH OCCUPATIONS INSTRUCTOR documented in this encounter Plan of Treatment Not on file documented as of this encounter Visit Diagnoses Diagnosis Seizure (CMS/HCC [facility]/HCC) Other convulsions documented in this encounter Care Teams Database Reporting Consultant Relationship Specialty Start Date End Date Joyce Luevano NP [address] [place] [address] PCP - General NURSE PRACTITIONER 01/14/20 10/26/23 Frank Toure MD [address] [place] [address] [employer] Pulmonary Fellow CARDIOVASCULAR DISEASE 05/30/16 documented as of this encounter
--- OUTSIDE RECORDS SUMMARY | 2024-06-08 05:50 | XMS_ITS | Encounter Summary ---
Author Organization [facility] Address [address] [facility]. [place], [place] [address] [place] [address] Care Team Providers Care Gang Plank Workman Name Role Phone Frank Toure MD Unavailable Joyce Luevano NP Primary Care Provider Unavaila ble Encounter Details Date Type Department Care Team (Latest Contact Info) Description 10/07/2021 Scan HEALTH INFO SRVCS Scanned, Documents Social [...] on filedocumented in this encounter Care Teams Gang Plank Workman Relationship Specialty Start Date End Date Joyce Luevano NP [address] [place] [address] PCP - General NURSE PRACTITIONER 01/14/20 10/26/23 Frank Toure MD [address] [place] [address] [employer] Field Agent CARDIOVASCULAR DISEASE 05/30/16 documented as of this encounter
--- OUTSIDE RECORDS SUMMARY | 2024-06-08 05:50 | XMS_ITS | Encounter Summary ---
Author Organization [facility] Address [address] [place] [address]. [place], [place] [address] [place] [address] Care Team Providers Care Prorate Clerk Name Role Phone Frank Toure MD Unavailable Chas Luevano NP Primary Care Provider Unavaila ble Reason for Visit * Reason Onset Date Comments Medication Request 08/27/2021 Encounter Details Date Type Department Care Team (Late st Contact Info) Description 08/27/2021 Telephone [facility] Family Medicine - [address] [address] Chas Luevano NP Medication Request [...] Coronavirus/COVID-19? No / Unsure 07/30/2021 9:22 AM TAPING FOREMAN documented as of this encounter Functional Status [...] Progress Notes * Bautista Whitman MA - 08/31/2021 7:45 AM CDT Pt coming in for visit tomorrow, Will ask about the neurology appt at that time. * Bautista Whitman MA - 08/28/2021 1:12 PM CDT LMOR for Anupama about he seizure meds being sent to the pharmacy and asked about the appointment forthe neurologist. Asked Anupama to call the office with the information. * Chas Luevano NP - 08/27/2021 4:51 PM CDT Please call his sister Anupama and let her know I sent in the medication for his seizures and ask herif there has been an appointment made for him to see the neurologist. * Chas Luevano NP - 08/27/2021 4:50 PM CDTAddended by: CHAS LUEVANO on: 08/27/2021 04:50 PM Modules accepted: Orders * Crystal Baron MA - 08/27/2021 1:21 PM CDTAddended by: CRYSTAL BARON on: 08/27/2021 01:21 PM Modules accepted: Orders * Ramya Ernst - 08/27/2021 12:00 PM CDT Refill request: Bi Tabor a patient of Chas Luevano NP requests a refill of Lacosamide 200 MG Tab The patient would like this sent to the following pharmacy: [facility] [id number] [address] The next office visit: Next visit with CHAS LUEVANO in FAMILY PRACTICE is on: 09/01/2021 in [facility] The last office visit documented in this encounter Plan of Treatment Not on file documented as of this encounter Visit Diagnoses Diagnosis Seizure ([facility]/HCC [facility]) Other convulsions documented in this encounter Care Teams Prorate Clerk Relationship Specialty Start Date End Date Chas Luevano NP [address] [place] [address] PCP - General NURSE PRACTITIONER 01/14/20 10/26/23 Frank Toure MD [address] [place] [address] [place] Manager Intensive Care CARDIOVASCULAR DISEASE 05/30/16 documented as of this encounter
--- OUTSIDE RECORDS SUMMARY | 2024-06-08 05:50 | XMS_ITS | Encounter Summary ---
Author Organization [facility] Address [address] [place] [address] [place] [address] Care Team Providers Care Pinked Edge Sewing Machine Operator Name Role Phone Frank Toure MD Unavailable Chas Luevano NP Primary Care Provider Unavaila ble Reason for Visit * Reason Onset Date Comments Medication 07/22/2021 Encounter Details Date Type Department Care Team (Late st Contact Info) Description 07/22/2021 Telephone [facility] Family Medicine - [address] [address] Chas Luevano NP Medication Social History Tobacco Use Types Packs/Day Years [...] documented in this encounter Progress Notes * Kim Whitman MA - 07/24/2021 10:00 AM CST This script was sent to the pharmacy at 1:41 am on 07/24/21 by Chas. PITTER * Ramya Ernst - 07/24/2021 7:36 AM CST pts SHARI Forrest called today and stated that pt is needing a refill on all his medications. Adriane states that pt only has enough meds to last him until 07/26/21. Pt has an appt on 07/28/21 and pt will be out of meds. Adriane stated that pt is on seizure meds and can't be without them. Pt goes to [facility] on [facility] Any further questions call Adriane at [phone]. PITTER PITTER * Chas Luevano NP - 07/24/2021 1:41 AM CSTAddended by: CHAS LUEVANO on: 07/24/2021 01:41 AM Modules accepted: Orders PITTER * Kim Whitman MA - 07/22/2021 12:03 PM CSTAddended by: KIM WHITMAN on: 07/22/2021 12:03 PM Modules accepted: Orders PITTER * Kim Whitman MA - 07/22/2021 11:54 AM CST Spoke to Adriane and she said he needs the depakote sent to [address] PITTER * Kim Whitman MA - 07/22/2021 11:47 AM CST Approve or deny. Last visit with CHAS LUEVANO in FAMILY PRACTICE was on: 09/05/2020 in [facility] Next visit with CHAS LUEVANO in FAMILY PRACTICE is on: 07/28/2021 in [facility] PITTER * Ramya Ernst - 07/22/2021 9:01 AM CST Adriane pts POA called today and stated that [facility]. Pt onlyhas 2 days worth of his seizure medication. Adriane states that pt takes Depakote medication. Pt goesto [facility] on [address] [facility] in [place] Adriane wants a follow up call [phone] PITTER documented in this encounter Plan of Treatment Not on file documented as of this encounter Visit Diagnoses Diagnosis Seizure ([facility]/HCC [facility]/HCC) Other convulsions documented in this encounter Care Teams Pinked Edge Sewing Machine Operator Relationship Specialty Start Date End Date Chas Luevano NP [address] [place] [address] PCP - General NURSE PRACTITIONER 01/14/20 10/26/23 Frank Toure MD [address] [place] [address] [employer] Word Processing Specialist CARDIOVASCULAR DISEASE 05/30/16 documented as of this encounter
--- OUTSIDE RECORDS SUMMARY | 2024-06-08 05:50 | XMS_ITS | Encounter Summary ---
Author Organization [facility] Address [address] [facility]. [place], [place] [address] [place] [address] Care Team Providers Care Health Professor Name Role Phone Frank Toure MD Unavailable Joyce Luevano NP Primary Care Provider Boa ble Encounter Details Date Type Department Care Team (Latest Contact Info) Description 12/03/2021 Travel Social History Tobacco Use Types Packs/Day [...] suspected to have Coronavirus/COVID-19? No / Unsure 12/03/2021 2:18 PM CDT documented as of this encounter [...] on filedocumented in this encounter Care Teams Health Professor Relationship Specialty Start Date End Date Joyce Luevano NP [address] [place] [address] PCP - General NURSE PRACTITIONER 01/14/20 10/26/23 Frank Toure MD [address] [place] [address] [employer] Footwear Sales Leader CARDIOVASCULAR DISEASE 05/30/16 documented as of this encounter
--- OUTSIDE RECORDS SUMMARY | 2024-06-08 05:50 | XMS_ITS | Encounter Summary ---
Author Organization [facility] Address [address] [facility]. [place], [place] [address] [place] [address] Care Team Providers Care Commercial Development Manager Name Role Phone Frank Toure MD Unavailable Joyce Luevano MARBLE AND GRANITE POLISHER Primary Care Provider Unavaila ble Reason for Visit * Reason Comments Gait Disturbance * Physical Medicine (Routine) - Closed Specialty Diagnoses / Procedures Referred By Anabella dan Referred To Contact PHYSICAL THERAPY / [facility] Physical Therapy Diagnoses Gait instability Difficulty transferring Joyce Luevano, MARBLE AND GRANITE POLISHER [address] [place] [address] [facility] Physical Therapy [address] [place] [address] Phone: tel: fax: Referral ID Status Reason Start Date Expiration Date V isits Requested Visits Authorized [id number] Closed Physical Therapy 11/03/2021 11/04/2022 6 6 Encounter Details Date Type Department Care Team (Late st Contact Info) Description 12/08/2021 2:15 PM CDT Office Visit [facility] Physical Therapy [address] [place] [address] Joyce Luevano MARBLE AND GRANITE POLISHER Call, Zofia Stokes PTA [facility] [place] [address] Gait Disturbance Social History Tobacco Use Types Packs/Day Years [...] documented in this encounter Progress Notes * Zofia Parnell, TOOL DIE MAKER - 12/08/2021 2:15 PM CDT Physical Therapy Visit Note: Patient Name: Bi Tabor Diagnosis: Gait disturbance (primary encounter diagnosis) Personal Protective Equipment PPE Used During Visit: Therapist wore medical grade mask throughout session, Patient wore mask throughout session SUBJECTIVE Therapy Visit Treatment Day: 4 Total Approved Visits: 6 Diagnosis: gait and transfer Referring Provider: Chloé Precautions: Seizures ~ 1x/week. USE GAIT BELT - FALL RISK Restrictions: PMH ETOH abuse Subjective Note: Patient sister states Bi was worn out after last session. Response to prior treatment: fatigued Compliance to Home Program: Daily compliance Reported Falls since last visit: no Medications changes since last visit : no Pain Current Location of Pain: LB Current Pain Level: 210 OBJECTIVE Treatment provided today: Therapeutic Exercise - 18298 Number of Minutes - 13689: 30 Cardio Equipment: SciFit at 25 increased to 8 min Exercise: Sit to stand with UE support 2 sets x 10 Exercise: Hooklying hip abd with peach band/ add with ball 5H x 10 each Exercise: B SLR x 10 (occasionally needs AAROM) Exercise: B Open book x 10 Exercise: LTR/DKC with 55cm ball x 15 Exercise: added bridging x 10 Exercise: added seated LAQ and marching x 10 bilateral Therapeutic Activities - 77166 Number of Minutes - 03029: 8 Intervention : HELD: Rhomberg 30 hold x 2 Intervention : HELD: Standing Tandem walk in // x 4 laps Intervention : Ambulation in clinic with rollator x 50 feet with focus on posture and gait pattern Other (Comments): Performed for LE strength/ functional mobility and transfers Education Was Education Provided: Yes Topic: Patient educated in improved glute activation with sit to stand to improve stability Recipient: Patient Method: Verbal Response: Verbalized understanding Barriers: Cognitive impairment ASSESSMENT Assessment Note: Patient required verbal instruction to stay on task and complete activities. AAROM for most of the activities to attain full ROM. Response to Treatment : Fatigued PLAN Plan Changes: added bridging, seated LAQ Next Visit Plan: Progress to standing activities as tolerated. Total Time Total Time in Minutes: 38 Timed Code Treatment Minutes : 38 documented in this encounter Plan of Treatment Not on file documented as of this encounter Visit Diagnoses Diagnosis Gait disturbance- Primary Abnormality of gait documented in this encounter Care Teams Commercial Development Manager Relationship Specialty Start Date End Date Joyce Luevano NP [address] [place] [address] PCP - General NURSE PRACTITIONER 01/14/20 10/26/23 Frank Toure MD [address] [place] [address] Chivo Nuclear Plant Construction Worker CARDIOVASCULAR DISEASE 05/30/16 documented as of this encounter
--- OUTSIDE RECORDS SUMMARY | 2024-06-08 05:50 | XMS_ITS | Encounter Summary ---
Author Organization [facility] Address [facility]. [place], [place] [address] [place] [address] Care Team Providers Care Chief Telephone Operator Name Role Phone Frank Toure MD Unavailable Joyce Luevano CAMPAIGN COORDINATOR Primary Care Provider Unavaila ble Reason for Visit * Reason Comments Gait Disturbance * Physical Medicine (Routine) - Closed Specialty Diagnoses / Procedures Referred By Anabella dan Referred To Contact PHYSICAL THERAPY / [facility] Physical Therapy Diagnoses Gait instability Difficulty transferring Joyce Luevano, CAMPAIGN COORDINATOR [address] [place], [place] [address] [place] [address] Physical Therapy [address] [place] [address] Phone: tel: fax: Referral ID Status Reason Start Date Expiration Date V isits Requested Visits Authorized [id number] Closed Physical Therapy 11/03/2021 11/04/2022 6 6 Encounter Details Date Type Department Care Team (Late st Contact Info) Description 12/03/2021 2:15 PM CDT Office Visit [facility] Physical Therapy [address] [place], [place] [address] Joyce Luevano NP Mattea, Danielle S, YARDAGE CONTROL OPERATOR FORMING Gait Disturbance Social History Tobacco Use Types [...] documented in this encounter Progress Notes * Mara Damon, YARDAGE CONTROL OPERATOR FORMING - 12/03/2021 2:15 PM CDT Physical Therapy Visit Note: Patient Name: Bi Tabor Diagnosis: Gait disturbance (primary encounter diagnosis) Personal Protective Equipment PPE Used During Visit: Therapist wore medical grade mask throughout session, Patient wore mask throughout session SUBJECTIVE Therapy Visit Treatment Day: 3 Total Approved Visits: 6 Diagnosis: gait and transfer Referring Provider: Chloé Precautions: Seizures ~ 1x/week. USE GAIT BELT - FALL RISK Restrictions: PMH ETOH abuse Subjective Note: Patient reports feeling okay today and is having minimal back pain. Patient had worse back pain but states his quaker began praying for his back pain to get better and he feels somewhat healed. Response to prior treatment: Patient felt better than when he got here Compliance to Home Program: Daily compliance Reported Falls since last visit: none Medications changes since last visit : none Pain Current Location of Pain: LB Current Pain Level: 07/09 OBJECTIVE Treatment provided today: Therapeutic Exercise - 07542 Number of Minutes - 17103: 30 Cardio Equipment: scifit at 25 x increased to 7 Exercise: Sit to stand with UE support 2 sets x 10 Exercise: Hooklying hip abd with peach band/ add with ball 5H x 10 each Exercise: B SLR x 10 (occasionally needs AAROM) Exercise: added: B Open book x 10 Exercise: added: LTR with 55cm ball x 15 Therapeutic Activities - 58870 Number of Minutes - 73394: 10 Intervention : HELD: Rhomberg 30 hold x 2 Intervention : HELD: Standing Tandem walk in // x 4 laps Intervention : Ambulation in clinic with rollator x 75 feet with focus on posture and gait pattern Other (Comments): Performed for LE strength/ functional mobility and transfers Education Was Education Provided: Yes Topic: Educated on importance of keeping back straight when ambulating at home and in the community Recipient: Patient Method: Verbal Response: Verbalized understanding Barriers: Cognitive impairment ASSESSMENT Assessment Note: Patient had difficulty with keeping scifit in use due to weakness. Patient is very deconditioned and demonstrates weakness in all aspects of PT. Patient requires contstant verbal and tactile cues to complete tasks given and will stop exercises mid way needing re-direction Response to Treatment : stated he felt fine PLAN Plan Changes: held standing due to safety issues Next Visit Plan: attempt 4 steps and resuming standing exercises Total Time Total Time in Minutes: 40 Timed Code Treatment Minutes : 40 documented in this encounter Plan of Treatment Not on file documented as of this encounter Visit Diagnoses Diagnosis Gait disturbance- Primary Abnormality of gait documented in this encounter Care Teams Chief Telephone Operator Relationship Specialty Start Date End Date Joyce Luevano NP [address] [place] [address] PCP - General NURSE PRACTITIONER 01/14/20 10/26/23 Frank Toure MD [address] [place] [address] Chivo Sr. Strategic Sourcing Manager CARDIOVASCULAR DISEASE 05/30/16 documented as of this encounter
--- OUTSIDE RECORDS SUMMARY | 2024-06-08 05:50 | XMS_ITS | Encounter Summary ---
Author Organization [facility] Address [address] [facility]. [place], [place] [address] [place] [address] Care Team Providers Care Mechanical Supervisor Name Role Phone Frank Toure MD Unavailable Joyce Luevano NP Primary Care Provider Boa ble Encounter Details Date Type Department Care Team (Latest Contact Info) Description 07/30/2021 Travel Social History Tobacco Use Types Packs/Day [...] Coronavirus/COVID-19? No / Unsure 07/30/2021 9:22 AM ADMINISTRATIVE REPRESENTATIVE documented as of this encounter Functional [...] Author Status Yes 12/04/2018 2:03 PM CDT Shookman, Anahi R , RN Active * Do you have difficulty [...] on filedocumented in this encounter Care Teams Mechanical Supervisor Relationship Specialty Start Date End Date Joyce Luevano NP [address] [place] [address] PCP - General NURSE PRACTITIONER 01/14/20 10/26/23 Frank Toure MD [address] [place] [address] Chivo Oracle Hyperion Consultant CARDIOVASCULAR DISEASE 05/30/16 documented as of this encounter
--- OUTSIDE RECORDS SUMMARY | 2024-06-08 05:50 | XMS_ITS | Encounter Summary ---
Author Organization [facility] Address [facility]. [place], [place] [address] [place] [address] Care Team Providers Care Obstetrics Scrub Nurse Name Role Phone Frank Toure MD Unavailable Joyce Luevano CLINICAL NURSE LEADER Primary Care Provider Unavaila ble Reason for Visit * Reason Comments Gait Disturbance * Physical Medicine (Routine) - Closed Specialty Diagnoses / Procedures Referred By Anabella dan Referred To Contact PHYSICAL THERAPY / [facility] Physical Therapy Diagnoses Gait instability Difficulty transferring Joyce Luevano, CLINICAL NURSE LEADER [address] [place], [place] [address] [place] [address] Physical Therapy [address] [place] [address] Phone: tel: fax: Referral ID Status Reason Start Date Expiration Date V isits Requested Visits Authorized [id number] Closed Physical Therapy 11/03/2021 11/04/2022 6 6 Encounter Details Date Type Department Care Team (Late st Contact Info) Description 12/01/2021 2:15 PM CDT Office Visit [facility] Physical Therapy [address] [place], [place] [address] Joyce Luevano NP Mattea, Danielle S, FIRE BOAT ENGINEER Gait Disturbance Social History Tobacco Use Types [...] this encounter Progress Notes * Mara Damon, FIRE BOAT ENGINEER - 12/01/2021 2:15 PM CDT Physical Therapy Visit Note: Patient Name: Bi Tabor Diagnosis: Gait disturbance (primary encounter diagnosis) Personal Protective Equipment PPE Used During Visit: Therapist wore medical grade mask throughout session, Patient wore mask throughout session SUBJECTIVE Therapy Visit Treatment Day: 2 Total Approved Visits: 6 Diagnosis: gait and transfer Referring Provider: Chloé Precautions: Seizures ~ 1x/week Restrictions: PMH ETOH abuse Subjective Note: Patient reports having LB pain today Response to prior treatment: Eval last time - patient felt fine Compliance to Home Program: Daily compliance Functional changes since last visit: None Reported Falls since last visit: None Medications changes since last visit : None Pain Current Location of Pain: LB Current Pain Level: 12/06 OBJECTIVE Treatment provided today: Therapeutic Exercise - 88184 Number of Minutes - 12245: 25 Cardio Equipment: scifit at 25 x 6 minutes Exercise: Sit to stand with UE support 2 sets x 10 Exercise: Hooklying hip abd with peach band/ add with ball 5H x 10 each Exercise: B SLR x 10 Therapeutic Activities - 88736 Number of Minutes - 78189: 20 Intervention : Rhomberg 30 hold x 2 Intervention : Standing Tandem walk in // x 4 laps Intervention : Ambulation in clinic with rollator x 75 feet Other (Comments): Performed for LE strength/ functional mobility and transfers Education Was Education Provided: Yes Topic: Patient educated on initated program, how to perform them and reasoning. Pt. also educated on importance of walking at home to reduce a sedintary lifestyle Recipient: Patient Method: Demonstration, Verbal, Return Demonstration Response: Asked questions, Demonstrates adequately, Verbalized understanding Barriers: Cognitive impairment ASSESSMENT Assessment Note: Gait belt and CGA needed throughout entire session due to safety issues. Patient demonstratescognitive deficit which makes it difficult for patient to express if he is understanding exercises given. Patient has global weakness and demosntrated maximal difficulty with scifit and each exercisedue to weakness/ lack of understanding. Constant verbal cues needed to keep patient on task. Extended time required for task completion Response to Treatment : stated he felt fine PLAN Plan Changes: Initiated program Next Visit Plan: attempt 4 steps Total Time Total Time in Minutes: 45 Timed Code Treatment Minutes : 45 documented in this encounter Plan of Treatment Not on file documented as of this encounter Visit Diagnoses Diagnosis Gait disturbance- Primary Abnormality of gait documented in this encounter Care Teams Obstetrics Scrub Nurse Relationship Specialty Start Date End Date Joyce Luevano NP [address] [place] [address] PCP - General NURSE PRACTITIONER 01/14/20 10/26/23 Frank Toure MD [address] [place] [address] Chivo Window Repairer CARDIOVASCULAR DISEASE 05/30/16 documented as of this encounter
--- OUTSIDE RECORDS SUMMARY | 2024-06-08 05:50 | XMS_ITS | Encounter Summary ---
Author Organization [facility] Address [address] [facility]. [place], [place] [address] [place] [address] Care Team Providers Care Data Technical Lead Name Role Phone Frank Toure MD Unavailable Joyce Luevano NP Primary Care Provider Unavaila ble Encounter Details Date Type Department Care Team (Latest Contact Info) Description 08/06/2021 Scan HEALTH INFO SRVCS Scanned, Documents Social [...] Coronavirus/COVID-19? No / Unsure 07/30/2021 9:22 AM ENGINEERING MANAGER documented as of this encounter [...] Assessment Author Status Yes 12/04/2018 2:03 PM CDAnahi Jewell RN Active * Do you have difficulty [...] on filedocumented in this encounter Care Teams Data Technical Lead Relationship Specialty Start Date End Date Joyce Luevano NP [address] [place] [address] PCP - General NURSE PRACTITIONER 01/14/20 10/26/23 Frank Toure MD [address] [place] [address] Chivo Unpaid Intern CARDIOVASCULAR DISEASE 05/30/16 documented as of this encounter
--- OUTSIDE RECORDS SUMMARY | 2024-06-08 05:50 | XMS_ITS | Encounter Summary ---
Author Organization [facility] Address [address] [facility] [address] [place] [address] Care Team Providers Care Musculoskeletal Physician Name Role Phone Frank Toure MD Unavailable Joyce Luevano NP Primary Care Provider Unavaila Marielena Adame MD Primary Care Provider [phone] Encounter Details Date Type Department Care Team (Late st Contact Info) Description 02/23/2022 Gaopengt Message Enc [facility] Family Medicine - [address] [address] Joyce Luevano, BOUCHRA Bi Tabor [...] Progress Notes * Joyce Luevano NP - 02/23/2022 11:25 AM CDT Message sent through other [place] message * Yonatan Rodriguez RN - 02/23/2022 10:24 AM CDT Please see note. Thanks documented in this encounter Plan of Treatment Not on file documented as of this encounter Visit Diagnoses Not on filedocumented in this encounter Care Teams Musculoskeletal Physician Relationship Specialty Start Date End Date Joyce Luevano NP [address] [place] [address] PCP - General NURSE PRACTITIONER 01/14/20 10/26/23 Marielena Small[place] MD [address] [place] [address] PCP - General FAMILY PRACTICE 10/27/23 Frank Toure MD [address] [place] [address] Administrative Engineer CARDIOVASCULAR DISEASE 05/30/16 documented as of this encounter
--- OUTSIDE RECORDS SUMMARY | 2024-06-08 05:50 | XMS_ITS | Encounter Summary ---
Author Organization [facility] - [facility] Address [address] [facility] [place] [address] [place] [address] Care Team Providers Care Machine Overhauler Name Role Phone Frank Toure MD Unavailable Joyce Luevano NP Primary Care Provider Unavaila Marielena Adame MD Primary Care Provider [phone] Encounter Details Date Type Department Care Team (Late st Contact Info) Description 02/23/2022 MyChart Message Enc [facility] Family Medicine - [address] [address] Joyce Luevano NP Bi updated Covid Vaccination Social History Tobacco Use Types Packs/Day Years [...] Progress Notes * Yonatan Rodriguez RN - 02/23/2022 10:33 AM CDT These updated through the [employer] system. documented in this encounter Plan of Treatment Not on file documented as of this encounter Visit Diagnoses Not on filedocumented in this encounter Care Teams Machine Overhauler Relationship Specialty Start Date End Date Joyce Luevano NP [address] [place] [address] PCP - General NURSE PRACTITIONER 01/14/20 10/26/23 Marielena [place] MD [address] [place] [address] PCP - General FAMILY PRACTICE 10/27/23 Frank Toure MD [address] [place] [address] Chivo Clerk Entry Level CARDIOVASCULAR DISEASE 05/30/16 documented as of this encounter
--- OUTSIDE RECORDS SUMMARY | 2024-06-08 05:50 | XMS_ITS | Encounter Summary ---
Author Organization [facility] Address [address] [facility] [place] [address] [place] [address] Care Team Providers Care International Logistics Analyst Name Role Phone Frank Toure MD Unavailable Joyce Luevano RETAIL PARTS PROFESSIONAL Primary Care Provider Unavaila ble Reason for Visit * Reason Onset Date Comments Information 02/08/2022 Encounter Details Date Type Department Care Team (Late st Contact Info) Description 02/08/2022 Telephone [facility] Family Medicine - [address] [address] Joyce Luevano NP Information Social [...] Progress Notes * Yonatan Rodriguez RN - 02/08/2022 2:57 PM CDT Spoke with Adriane again and informed her. She states she may actually go to [facility] to have them check on this. * Yonatan Rodriguez RN - 02/08/2022 2:54 PM CDT LVM for Adriane to call back. Want to reiterate that patient should go to ER if he has not urinated all day and verify which hospital she was going to take him to. * Yonatan Rodriguez RN - 02/08/2022 2:47 PM CDT Spoke with Adriane about this. She states when the patient was released from the hospital, he was given condom caths to use, but they did not want to use these for him. She states the patient is also not on the flomax anymore, which he used to be on that helped with urine flow. Asked if she knew how much fluid intake he had gotten today and she state she has not been up there yet, but believes he ge ts something with his meals and also finished an ensure drink while her sister was with him. Advised her that it may be best to take patient to the ER to make sure there is nothing else going on and to make sure this does not get worse. She verbalized understanding and states she may need to take him in her car to [facility]. Advised her to follow up with us with any questions or information. She states she is going to talk to the nurse once she gets to the [place]. * Yonatan Rodriguez RN - 02/08/2022 2:39 PM CDT Lvm for Adriane to call back. Looks like patient is on Flomax for urinary retention. Has he been taking this? Has he been drinking fluids today? May need to go to the ER. * Delilah Cloud - 02/08/2022 2:28 PM CDT Patient's sister called and wants to talk to Joyce or the nurse regarding her brother... He is in [facility]. Her sister went up to see him, and says that he has not urinated all day, and they do not seem to be concerned. Please follow up with patient's sister. documented in this encounter Plan of Treatment Not on file documented as of this encounter Visit Diagnoses Not on filedocumented in this encounter Care Teams International Logistics Analyst Relationship Specialty Start Date End Date Joyce Luevano NP [address] [place] [address] PCP - General NURSE PRACTITIONER 01/14/20 10/26/23 Frank Toure MD [address] [place] [address] Chivo L Tacker CARDIOVASCULAR DISEASE 05/30/16 documented as of this encounter
--- OUTSIDE RECORDS SUMMARY | 2024-06-08 05:50 | XMS_ITS | Encounter Summary ---
Author Organization [facility] Address [facility]6 [facility]. [place], [place] [address] [place] [address] Care Team Providers Care Environmental Services Assistant Name Role Phone Frank Toure MD Unavailable Joyce Luevano BEARING RING ASSEMBLER Primary Care Provider Unavaila ble Reason for Visit * Reason Comments Gait Disturbance * Physical Medicine (Routine) - Closed Specialty Diagnoses / Procedures Referred By Anabella dan Referred To Contact [facility] Therapy Diagnoses Gait instability Difficulty transferring Joyce Luevano, BEARING RING ASSEMBLER [address] [place], [place] [address] [place] [address] Physical Therapy [address] [place] [address] Phone: tel: fax: Referral ID Status Reason Start Date Expiration Date V isits Requested Visits Authorized [id number] Closed Physical Therapy 11/03/2021 11/04/2022 6 6 Encounter Details Date Type Department Care Team (Late st Contact Info) Description 12/15/2021 2:15 PM CDT Office Visit [facility] Physical Therapy [address] [place], [place] [address] Joyce Luevano NP Mattea, Danielle S, CITY BUS DRIVER Gait Disturbance Social History Tobacco Use Types [...] this encounter Progress Notes * Mara Damon, CITY BUS DRIVER - 12/15/2021 2:15 PM CDT Physical Therapy Visit Note: Patient Name: Bi Tabor Diagnosis: Gait disturbance (primary encounter diagnosis) Personal Protective Equipment PPE Used During Visit: Therapist wore medical grade mask throughout session, Patient wore mask throughout session SUBJECTIVE Therapy Visit Treatment Day: 5 Total Approved Visits: 6 Diagnosis: gait and transfer Referring Provider: Chloé Precautions: Seizures ~ 1x/week. USE GAIT BELT - FALL RISK Restrictions: PMH ETOH abuse Subjective Note: Patient reports feeling pretty good today overall Response to prior treatment: Patient felt good Compliance to Home Program: Daily compliance Functional changes since last visit: None Reported Falls since last visit: None Medications changes since last visit : None Pain Current Location of Pain: LB Current Pain Level: 2/10 OBJECTIVE Treatment provided today: Therapeutic Exercise - 93967 Number of Minutes - 02176: 30 Cardio Equipment: SciFit at 25 x 8 min Exercise: Sit to stand with UE support 2 sets x 10 Exercise: Hooklying hip abd with peach band/ add with ball 5H x 10 each Exercise: B SLR x 10 (occasionally needs AAROM) Exercise: B Open book x 10 Exercise: LTR/DKC with 55cm ball x 15 Exercise: Bridging x 10 Exercise: Seated LAQ and marching x 10 bilateral Exercise: added: B Clamshells x 15 Therapeutic Activities - 94879 Number of Minutes - 60000: 8 Intervention : HELD: Rhomberg 30 hold [...] Barriers: Cognitive impairment ASSESSMENT Assessment Note: Patient tolerated clamshells well and was able to perform them with verbal cues only for posture Response to Treatment : Patient felt okay overall, minimall fatigued PLAN Plan Changes: added clamshells Next Visit Plan: re-eval Total Time Total Time in Minutes: 38 Timed Code Treatment Minutes : 38 documented in this encounter Plan of Treatment Not on file documented as of this encounter Visit Diagnoses Diagnosis Gait disturbance- Primary Abnormality of gait documented in this encounter Care Teams Environmental Services Assistant Relationship Specialty Start Date End Date Joyce Luevano NP [address] [place] [address] PCP - General NURSE PRACTITIONER 01/14/20 10/26/23 Frank Toure MD [address] [place] [address] [place] Civil Engineering Professor CARDIOVASCULAR DISEASE 05/30/16 documented as of this encounter
--- OUTSIDE RECORDS SUMMARY | 2024-06-08 05:50 | XMS_ITS | Encounter Summary ---
Author Organization [facility] Address [address] [facility]. [place], [place] [address] [place] [address] Care Team Providers Care Moose Hunter Name Role Phone Frank Toure MD Unavailable Joyce Luevano NP Primary Care Provider Unavaila ble Encounter Details Date Type Department Care Team (Latest Contact Info) Description 12/04/2021 Scan HEALTH INFO SRVCS Scanned, Documents Social [...] on filedocumented in this encounter Care Teams Moose Hunter Relationship Specialty Start Date End Date Jyoce Luevano NP [address] [place] [address] PCP - General NURSE PRACTITIONER 01/14/20 10/26/23 Frank Toure MD [address] [place] [address] Chivo Marshmallow Machine Worker CARDIOVASCULAR DISEASE 05/30/16 documented as of this encounter
--- OUTSIDE RECORDS SUMMARY | 2024-06-08 05:50 | XMS_ITS | Encounter Summary ---
Author Organization [facility] Address [address] [facility] [place], [place] [address] [place] [address] Care Team Providers Care Inspector Final Assembly Conveyor Line Name Role Phone Frank Toure MD Unavailable Joyce Luevano NP Primary Care Provider Boa ble Encounter Details Date Type Department Care Team (Latest Contact Info) Description 09/08/2021 Travel Social History Tobacco Use Types Packs/Day [...] on filedocumented in this encounter Care Teams Inspector Final Assembly Conveyor Line Relationship Specialty Start Date End Date Joyce Luevano NP [address] [place] [address] PCP - General NURSE PRACTITIONER 01/14/20 10/26/23 Frank Toure MD [address] [place] [address] Chivo Manager Education CARDIOVASCULAR DISEASE 05/30/16 documented as of this encounter
--- OUTSIDE RECORDS SUMMARY | 2024-06-08 05:51 | XMS_ITS | Encounter Summary ---
Author Organization [facility] Address [address] [facility] [place] [address] [place] [address] Care Team Providers Care Certified Ophthalmic Assistant Name Role Phone Frank Toure MD Unavailable Misael Maradiaga DO Primary Care Provider [phone] Reason for Visit * Reason Comments MRI (SCAN) CT (SCAN) Encounter Details Date Type Department Care Team (Late st Contact Info) Description 05/08/2019 Scan HEALTH INFO SRVCS Scanned, Documents MRI (SCAN); CT (SCAN) Social History Tobacco Use [...] Priority Date/Time Associated Diagnosis Comments CT GENERIC Routine 05/08/2019 CT GENERIC Routine 05/08/2019 MRI GENERIC Routine 05/08/2019 documented in this encounter Results * CT (05/08/2019) Anatomical Region Laterality Modality Other us Documents Scanned SCANNING Final Result * CT (05/08/2019) Anatomical Region Laterality Modality Other us Documents Scanned SCANNING Final Result * MRI (05/08/2019) Anatomical Region Laterality Modality Other us Documents Scanned SCANNING Final Result documented in this encounter Visit Diagnoses Not on filedocumented in this encounter Care Teams Certified Ophthalmic Assistant Relationship Specialty Start Date End Date Misael Maradiaga DO [address] [place] [address] PCP - General FAMILY PRACTICE 09/28/18 01/13/20 Frank Toure MD [address] [place] [address] Chivo Furnace Fitter CARDIOVASCULAR DISEASE 05/30/16 documented as of this encounter
--- OUTSIDE RECORDS SUMMARY | 2024-06-08 05:51 | XMS_ITS | Encounter Summary ---
Author Organization [facility] Address [address] [place] [address] [place] [address] Care Team Providers Care Overnight Houseperson Name Role Phone Frank Toure MD Unavailable Misael Maradiaga DO Primary Care Provider + [phone] Encounter Details Date Type Department Care Team (Latest Contact Info) Description 12/27/2018 Scan HEALTH INFO SRVCS Scanned, Documents Social History Tobacco Use Types Packs/Day Years Used Date Smoking Tobacco: Every Day Smokeless Tobacco: Never Alcohol Use Standard Drinks/Week [...] Shookman, Anahi R , RN Active * Because of a physical, [...] on filedocumented in this encounter Care Teams Overnight Houseperson Relationship Specialty Start Date End Date Misael Maradiaga DO [address] [place] [address] PCP - General FAMILY PRACTICE 09/28/18 01/13/20 Frank Toure MD [address] [place] [address] [employer] Pick Up Attendant CARDIOVASCULAR DISEASE 05/30/16 documented as of this encounter
--- OUTSIDE RECORDS SUMMARY | 2024-06-08 05:51 | XMS_ITS | Encounter Summary ---
Author Organization [facility] Address [address] [place] [address] [place] [address] Care Team Providers Care Topline Beading Machine Tender Name Role Phone Frank Toure MD Unavailable Misael Maradiaga DO Primary Care Provider + [phone] Encounter Details Date Type Department Care Team (Latest Contact Info) Description 01/07/2019 Scan HEALTH INFO SRVCS Scanned, Documents Social [...] on filedocumented in this encounter Care Teams Topline Beading Machine Tender Relationship Specialty Start Date End Date Misael Maradiaga DO [address] [place] [address] PCP - General FAMILY PRACTICE 09/28/18 01/13/20 Frank Toure MD [address] [place] [address] [employer] Manufacturing Test Technician CARDIOVASCULAR DISEASE 05/30/16 documented as of this encounter
--- OUTSIDE RECORDS SUMMARY | 2024-06-08 05:51 | XMS_ITS | Encounter Summary ---
Author Organization [facility] Address [address] [place] [address] [place] [address] Care Team Providers Care Cupola Melter Helper Name Role Phone Frank Toure MD Unavailable Misael Maradiaga DO Primary Care Provider + [phone] Encounter Details Date Type Department Care Team (Latest Contact Info) Description 01/21/2019 Scan HEALTH INFO SRVCS Scanned, Documents Social [...] on filedocumented in this encounter Care Teams Cupola Melter Helper Relationship Specialty Start Date End Date Misael Maradiaga DO [address] [place] [address] PCP - General FAMILY PRACTICE 09/28/18 01/13/20 Frank Toure MD [address] [place] [address] [employer] Inside Outside Sales Representative CARDIOVASCULAR DISEASE 05/30/16 documented as of this encounter
--- OUTSIDE RECORDS SUMMARY | 2024-06-08 05:51 | XMS_ITS | Encounter Summary ---
Author Organization [facility] Address [address] [facility]. [place], [place] [address] [place] [address] Care Team Providers Care Bisque Tile Burner Name Role Phone Frank Toure MD Unavailable Joyce Luevano PATTERN DESIGNER Primary Care Provider Unavaila ble Reason for Referral * Speech Therapy (Routine) - Closed Specialty Diagnoses / Procedures Referred By Anabella dan Referred To Contact SPEECH THERAPY Diagnoses Cerebrovascular accident (CVA) due to thrombosis of right posterior cerebral artery ([facility]) Joyce Luevano NP [address] [address] Phone: tel: fax: Referral ID Status Reason Start Date Expiration Date V isits Requested Visits Authorized [id number] Closed Specialty Services 04/25/2020 05/25/2021 99 99 GRINDER FEEDER Reason for Visit * Reason Onset Date Comments Referral 04/23/2020 Encounter Details Date Type Department Care Team (Late st Contact Info) Description 04/23/2020 Telephone [facility] [facility] Family Medicine - [address] [address] Joyce Luevano NP Referral Social History Tobacco Use Types Packs/Day Years [...] documented in this encounter Progress Notes * Dina Euceda MA - 04/25/2020 9:45 AM CST Pt sister Adriane states they just want a regular speech therapy order for him. GRINDER FEEDER * Joyce Luevano NP - 04/25/2020 8:33 AM CST Please call patient/POA and see if they were wanting a speech referral. I place OT/PT that is what was discussed at the visit but I can put it if the family wants. GRINDER FEEDER * Lula Hutson MA - 04/23/2020 3:14 PM CST Please advise GRINDER FEEDER * Nohemy Ray - 04/23/2020 2:56 PM CST Dimple from Referrals called to check and see if there was supposed to be a referral order for Speech. If so, please enter a referral order GRINDER FEEDER documented in this encounter Plan of Treatment Scheduled Referrals Name Type Priority Associated Diagnoses Orde r Schedule Ambulatory referral to Speech Therapy Referral Routine Cerebrovascular accident (CVA) due to thrombosis of right posterior cerebral artery (CMS/HCC HHS/HCC) Ordered: 04/25/2020 documented as of this encounter Visit Diagnoses Diagnosis Cerebrovascular accident (CVA) due to thrombosis of right posterior cerebral artery (CMS/HCC HHS/HCC)- Primary documented in this encounter Care Teams Bisque Tile Burner Relationship Specialty Start Date End Date Joyce Luevano NP [address] [place] [address] PCP - General NURSE PRACTITIONER 01/14/20 10/26/23 Frank Toure MD [address] [place] [address] [employer]ivo Winch Derrick Operator CARDIOVASCULAR DISEASE 05/30/16 documented as of this encounter
--- OUTSIDE RECORDS SUMMARY | 2024-06-08 05:51 | XMS_ITS | Encounter Summary ---
Author Organization [facility] Address [address] [facility]. [place], [place] [address] [place] [address] Care Team Providers Care Receptionist Doctor'S Office Name Role Phone Frank Toure MD Unavailable Joyce Luevano NP Primary Care Provider Boa ble Encounter Details Date Type Department Care Team (Late st Contact Info) Description 01/31/2021 Orders Only [facility] [address] [place] [address] Burke Restrepo MD [address] [place] [address] Social History Tobacco Use Types Packs/Day Years [...] Jernigan RN Active documented in this encounter Plan of Treatment Not on file documented as of this encounter Results * (ABNORMAL) KEPPRA LEVEL (01/31/2021 7:48 AM CDT) [facility] Signature KEPPRA 48.5(H) 12.0 - 46.0 mcg/mL 02/05/2021 10:00 AM CDT [facility]O Comment: Toxic level is not well established. Interpretation should include a clinical evaluation. For additional information, please refer to [email or web address]/faq/QEC651 (This link is being provided for informational/ educational purposes only.) This test was developed and its analytical performance characteristics have been determined by [facility] [place], [place]. It has not been cleared or approved by the U.S. Food and Drug Administration. This assay has been validated pursuant to the CLIA regulations and is used for clinical purposes. Test Performed by [facility], [facility] [place], [address] [place], [place] Levon Brewer M.D., Ph.D., Director of Laboratories , CLIA [id number] 01/31/2021 7:48 AM CDT Burke Restrepo MD LABORATORY Final Result [facility] [address] [place] [address], [place] [phone] * (ABNORMAL) COMPREHENSIVE METABOLIC PANEL (01/31/2021 7:48 AM CDT) [facility] GLUCOSE 80 70 - 99 MG/DL 01/31/2021 8:36 PM CDT [facility] BUN 11 7 - 18 MG/DL 01/31/2021 8:36 PM CDT [facility] CREATININE S/P/B 0.81 0.7 - 1.3 MG/DL 01/31/2021 8:36 PM CDT [facility] SODIUM S/P/B 142 136 - 145 MMOL/L 01/31/2021 8:36 PM CDT [facility] POTASSIUM S/P/B 4.1 3.5 - 5.1 MMOL/L 01/31/2021 8:36 PM CDT [facility] CHLORIDE S/P/B 110(H) 100 - 108 MMOL/L 01/31/2021 8:36 PM CDT [facility] CO2 27.7 21 - 32 MMOL/L 01/31/2021 8:36 PM CDT [facility] CALCIUM S/P/B 9.5 8.5 - 10.1 MG/DL 01/31/2021 8:36 PM CDT [facility] BILIRUBIN TOTAL S/P/B 0.4 0.2 - 1.2 MG/DL 01/31/2021 8:36 PM CDT [facility] Comment: THIS ASSAY IS NOT RECOMMENDED FOR PATIENTS UNDERGOING TREATMENT WITH ELTROMBOPAG DUE TO THE POTENTIAL FOR FALSELY ELEVATED RESULTS. TOTAL PROTEIN S/P/B 7.1 6.4 - 8.2 G/DL 01/31/2021 8:36 PM CDT [facility] ALBUMIN S/P/B 4.0 3.4 - 5.0 G/DL 01/31/2021 8:36 PM CDT [facility] AST 14(L) 15 - 37 U/L 01/31/2021 8:36 PM CDT [facility] ALT 16 16 - 60 U/L 01/31/2021 8:36 PM CDT [facility] ALKALINE PHOSPHATASE S/P/B 69 50 - 136 U/L 01/31/2021 8:36 PM CDT [facility] ANION GAP 4.3(L) 5 - 15 MMOL/L 01/31/2021 8:36 PM CDT [facility] BUN CREATININE RATIO 13.5 6 - 26 01/31/2021 8:36 PM CDT [facility] A/G RATIO 1.3 1.0 - 2.0 RATIO 01/31/2021 8:36 PM CDT [facility] EGFR NON-AFR. AMER. >90 >90 ML/MIN/1.7 3 M2 01/31/2021 8:36 PM CDT [facility] EGFR AFR. AMER. >90 >90 ML/MIN/1.7 3 M2 01/31/2021 8:36 PM T [facility] Comment: NOTE: eGFR is not calculated for patients <18 years of age. This is an estimated GFR (CKD EPI) and should not be used for calculating drug doses. 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
--- OUTSIDE RECORDS SUMMARY | 2024-06-08 05:51 | XMS_ITS | Encounter Summary ---
Author Organization [facility] Address [address] [facility]. [place], [place] [address] [place] [id number] Care Team Providers Care Refining Engineer Name Role Phone Frank Toure MD Unavailable Misael Maradiaga DO Primary Care Provider + [phone] Reason for Visit * Reason Comments Seizure- Prior History Of Encounter Details Date Type Department Care Team (Late st Contact Info) Description 01/25/2019 1:50 PM CDT - 01/25/2019 9:38 PM CDT Emergency [facility] [place] [address] Juany Jennings, SHOWROOM MANAGER- Seizure- Prior History Of Discharge Disposition: Home or Self Care (Routine Discharge) Social History Tobacco Use Types Packs/Day Years Used Date Smoking Tobacco: Former Cigarettes Smokeless Tobacco: Never Tobacco Cessation:Counseling Given: Yes Alcohol Use Standard Drinks/Week Comments [...] Sign Reading Time Taken Comments Blood Pressure 140/84 01/25/2019 9:15 PM CDT Pulse 80 01/25/2019 9:15 PM CDT Temperature 36.9 ??C (98.5 ??F) 01/25/2019 1:45 PM CD T Respiratory Rate 15 01/25/2019 9:15 PM CDT Oxygen Saturation 98% 01/25/2019 9:15 PM CDT Inhaled Oxygen Concentration - - Weight 57.5 kg (126 lb 12.8 oz) 01/25/2019 1:45 PM CDT Height 180.3 cm (5' 11 ) 01/25/2019 1:45 PM CDT Body Mass Index 17.69 01/25/2019 1:45 PM CDT documented in this encounter Functional [...] Status Yes 12/04/2018 2:03 PM CDT Anahi Jeringan RN Active documented as of this encounter Mental Status * Because of a physical, mental, or emotional condition, do you have serious difficulty concentrating, remembering, or making decisions? Answer Entry Date Author Status No 12/04/2018 2:03 PM CDT Anahi Jernigan RN Active documented in this encounter Discharge Instructions * Discharge Instructions* Juany Byers Michaela, SHOWROOM MANAGER - 01/25/2019 6:59 PM CDT Today your lab work was reassuring. The only information that we did not receive was her Keppra level. This is a send out lab and will not be available for the next few days. Your results were discussed with Dr. Santacruz who recommends that you still continue the switch to Briviact from your Keppra as noted on your discharge papers from yesterday. Please do the taper as instructed. We will also be beneficial for you to see your primary care doctor in order to get the paper signed off for you to move to [facility]. Please return to care for worsening symptoms. * Attachments The following attachments cannot be sent through Care Everywhere. * Seizures Discharge Instructions, Adult (Icelandic) documented in this encounter Medications at Time of Discharge acetaminophen 325 MG tabletIndications: Headache, unspecified headache type Take 1 tablet (325 mg total) by mouth every 8 (eight) hours as needed for Pain. 90 tablet 2 01/10/2019 vitamin B-1 100 MG TabIndications:Sei zure ([facility]) Take 1 tablet (100 mg total) by mouth daily. 30 tablet 12/13/2018 amlodipine 5 MG tabletIndications: Essential hypertension Take 1 tablet (5 mg total) by mouth daily. 90 tablet 01/05/2019 0 aspirin 81 MG chewable tabletIndications: Seizure ([facility] HHS/[facility]) Chew 1 tablet (81 mg total) by mouth daily. 90 tablet 01/05/2019 1 atorvastatin 20 MG tabletIndications: Seizure ([facility]) Take 1 tablet (20 mg total) by mouth daily. 90 tablet 01/05/2019 1 Brivaracetam (BRIVIACT) 75 MG TabIndications:Int ractable epilepsy without status epilepticus, unspecified epilepsy type ([facility]) Take 75 mg by mouth daily. Start taking one by mouth daily, increase as directed to two by mouth twice a day 120 tablet 3 01/24/2019 0 clonazePAM 0.5 MG tablet TK 1 T PO Q 8 H PRN. PLEASE CALL OFFICE IF SEIZURES OCCUR AFTER TAKING. 5 08/09/2018 1 divalproex ER 500 MG 24 hr tablet TK 2 TS PO D IN ADDITION TO 1 OF THE 250 MG TS 3 01/15/2019 1 Eslicarbazepine Acetate 800 MG Tab Take 800 mg by mouth. 12/27/2018 0 folic acid 1 MG tabletIndications: Seizure ([facility]/HCC HHS/HCC) Take 1 tablet (1 mg total) by mouth daily. 90 tablet 01/05/2019 0 ibuprofen 600 MG tablet Take 600 mg by mouth every 6 (six) hours as needed for Pain. 0 levETIRAcetam 1000 MG tabletIndications: Seizure (CMS/HCC HHS/HCC) Take 2 tablets (2,000 mg total) by mouth 2 (two) times daily. 60 tablet 12/12/2018 2 OXcarbazepine 150 MG tabletIndications: Seizure (CMS/HCC HHS/HCC) Take 3 tablets (450 mg total) by mouth 2 (two) times daily. 60 tablet 12/12/2018 0 sodium chloride 1 GM tablet Take 1 g by mouth. 12/29/2018 0 tamsulosin 0.4 MG CapIndications:Sei zure ([facility] HHS/HCC) Take 1 capsule (0.4 mg total) by mouth daily. 90 capsule 01/05/2019 1 documented as of this encounter ED Notes * Patricia Gillespie RN - 01/25/2019 9:32 PM CDT Patients family arrived at bedside to transport patient home at 2115L. As the RN and brother tried to assist patient onto side of bed patient had blank seizure that last less than 60 seconds. Patientwas responsive during the entire seizure. Brother was concerned and wanted to speak to a physician.REBECCA Rivas spoke to family member and reassured the brother that it was safe for the patient to go h ome, and suggested that a someone monitor him over night for any more seizure- like activity. Brother then provided seizure medication prior to stepping into vehicle. * Karime Resendez RN - 01/25/2019 8:35 PM CDT Able to contact patient's brother, who will be heading this way to pick the patient up. * Karime Resendez RN - 01/25/2019 8:26 PM CDT Family member who was at bedside left. Attempting to contact family to give him a ride. Sister was contacted but she states she cannot come back to the hospital to get him. Will attempt to try to contact the patient's brother. * LYNN Shafer - 01/25/2019 2:25 PM CDT History Chief Complaint Patient presents with ??? Seizure- Prior History Of Bi Tabor is a 58-year-old male who presented to the ED due seizure attack this morning. Patient presents in a post-ictal state and with his Brother and Sister acting as the patient's primary historians. Patient's Sister states this morning the patient had 3 seizures in a row. The house keeperwitnessed the seizures and stated one was so severe he fell off his bed onto the floor. Patient's Sister reports the patient being diagnosed with epilepsy sometime in his late 20's to early 30's. He has been on several seizure medications throughout his course of treatment. Currently Patient is reporting to be taking 4000 mg of Keppra Daily. Patient's family reports his neurologist wants to change his medication to Briviact from Keppra, though he has not started the Briviact at this time. After Patient had recovered from his post-ictal state he became more alert and was able to provide his history. Patient described his seizure this morning as having two little ones and one big one. Reports his symptoms during the seizure was nausea, lightheadedness, and real sick. Patient does report recalling all the events leading up to the suspected seizure and throughout the event. Patient states when he fell off of his bed he landed on his back and did not hit his head. He is reporting no pain at this time. Past Medical History: Diagnosis Date ??? HLD (hyperlipidemia) ??? Hypertension ??? Seizures (CMS/HCC) ??? Seizures (CMS/HCC) ??? Stroke (CMS/HCC) lt side weakness Prior to Admission medications Medication Sig Start Date End Date Taking? Authorizing Provider acetaminophen 325 MG tablet Take 1 tablet (325 mg total) by mouth every 8 (eight) hours as needed for Pain. 01/10/19 Misael Maradiaga DO amlodipine 5 MG tablet Take 1 tablet (5 mg total) by mouth daily. 01/05/19 Misael Maradiaga DO aspirin 81 MG chewable tablet Chew 1 tablet (81 mg total) by mouth daily. 01/05/19 Misael Maradiaga DO atorvastatin 20 MG tablet Take 1 tablet (20 mg total) by mouth daily. 01/05/19 Misael Maradiaga DO Brivaracetam (BRIVIACT) 75 MG Tab Take 75 mg by mouth daily. Start taking one by mouth daily, increase as directed to two by mouth twice a day 01/24/19 Duarte Santacruz MD clonazePAM 0.5 MG tablet TK 1 T PO Q 8 H PRN. PLEASE CALL OFFICE IF SEIZURES OCCUR AFTER TAKING. 08/09/18 Doc Abstract divalproex ER 500 MG 24 hr tablet TK 2 TS PO D IN ADDITION TO 1 OF THE 250 MG TS 01/15/19 Doc Abstract Eslicarbazepine Acetate 800 MG Tab Take 800 mg by mouth. 12/27/18 Doc Abstract folic acid 1 MG tablet Take 1 tablet (1 mg total) by mouth daily. 01/05/19 Misael Maradiaga DO ibuprofen 600 MG tablet Take 600 mg by mouth every 6 (six) hours as needed for Pain. Doc Abstract levETIRAcetam 1000 MG tablet Take 2 tablets (2,000 mg total) by mouth 2 (two) times daily. 12/12/18 Karmen Johnson MD OXcarbazepine 150 MG tablet Take 3 tablets (450 mg total) by mouth 2 (two) times daily. 12/12/18 Jaxon Johnson MD sodium chloride 1 GM tablet Take 1 g by mouth. 12/29/18 Doc Abstract tamsulosin 0.4 MG Cap Take 1 capsule (0.4 mg total) by mouth daily. 01/05/19 Misael Maradiaga DO vitamin B-1 100 MG Tab Take 1 tablet (100 mg total) by mouth daily. 12/13/18 Karmen Johnson MD Past Surgical History: Procedure Laterality Date ??? NONE Family History Family history unknown: Yes Social History Tobacco Use ??? Smoking status: Former Smoker Packs/day: 0.50 ??? Smokeless tobacco: Never Used Substance Use Topics ??? Alcohol use: No ??? Drug use: No No LMP for male patient. Review of Systems Constitutional: Negative for fever. Respiratory: Negative for cough. Genitourinary: Negative for difficulty urinating, dysuria, frequency and hematuria. Musculoskeletal: Negative for back pain. Neurological: Positive for seizures. Negative for headaches. All other systems reviewed and are negative. Physical Exam Filed Vitals: 01/25/19 1430 01/25/19 1600 01/25/19 1815 01/25/19 1847 BP: 122/83 142/83 129/82 Pulse: 88 86 90 91 Resp: 15 15 15 13 Temp: TempSrc: SpO2: 97% 100% 100% Weight: Height: Physical Exam Constitutional: He is oriented to person, place, and time. He appears well- developed and well-nourished. HENT: Head: Normocephalic and atraumatic. Right Ear: External ear normal. Left Ear: External ear normal. Nose: Nose normal. Mouth/Throat: Oropharynx is clear and moist. Eyes: Conjunctivae and EOM are normal. Pupils are equal, round, and reactive to light. Neck: Normal range of motion. Neck supple. Cardiovascular: Normal rate, regular rhythm, normal heart sounds and intact distal pulses. Pulmonary/Chest: Effort normal and breath sounds normal. Abdominal: Soft. Bowel sounds are normal. Musculoskeletal: Normal range of motion. He exhibits no tenderness (No midline spine tenderness w/ palpation). Neurological: He is alert and oriented to person, place, and time. No cranial nerve deficit. He exhibits normal muscle tone. Coordination normal. Skin: Skin is warm and dry. Psychiatric: He has a normal mood and affect. His behavior is normal. Thought content normal. Initially patient was post-ictal. Second assessment patient was A+O x3 and answered questions appropriately. Labs Reviewed CBC W/DIFF AUTOMATED - Abnormal; Notable for the following components: Result Value RBC 4.28 (*) HGB 13.9 (*) HCT 40.9 (*) MCV 95.6 (*) MCH 32.5 (*) All other components within normal limits COMPREHENSIVE METABOLIC PANEL - Abnormal; Notable for the following components: CREATININE 0.67 (*) AST 13 (*) All other components within normal limits URINALYSIS - Abnormal; Notable for the following components: U KETONES TRACE (*) UROBILINOGEN 4.0 (*) All other components within normal limits ACETAMINOPHEN - Abnormal; Notable for the following components: Acetaminophen <2.0 (*) All other components within normal limits DRUG SCREEN RAPID ETHANOL SALICYLATE TSH W/REFLEX KEPPRA LEVEL VALPROIC ACID ED Course Plan of care discussed with patient, patient agreeable. Results discussed. Red flags discussed reasons to return, patient verbalized understanding. Procedures ED Course as of Jan 25 2045 Marian Jan 25, 2019 [id number]--spoke with the patient's sister, Adriane, who states that the patient is excepted to [facility] assisted [facility] and is only awaiting his PCP to sign off on her papers. She states that the patient did have an appointment today, but since he was in the ER he missed the appointment. She states thatshe will contact the doctor tomorrow to see if he can sign off on the papers and get him accepted to the facility. Patient is aware of this plan and agreeable. The results from his lab work were alsoreviewed with Dr. Santacruz who recommends discharge home and follow-up in the clinic within the next 1 month. He would still like the patient to switch to Briviact from Keppra as noted on his discharge papers from his office appointment tomorrow. Patient and sister are both aware of this since the sister helps manage his medications. [MP] ED Course User Index [MP] LYNN Shafer Medications sodium chloride 0.9% bolus infusion SOLN 1,000 mL (0 mLs Intravenous Infusion Stop Time 01/25/192009) Current Discharge Medication List MDM Number of Diagnoses or Management Options Increasing frequency of seizure activity (CMS/HCC): Amount and/or Complexity of Data Reviewed Clinical lab tests: ordered and reviewed Tests in the medicine section of CPT??: ordered and reviewed Review and summarize past medical records: yes (Reviewed previous office visit from 01/24/[address] Santacruz, neurology. Noted medication changes and scheduled taper from Keppra to Briviact in Dr. Santacruz's note.) Discuss the patient with other providers: yes (Dr. Santacruz, neurology, as noted.) Patient Progress Patient progress: stable SNOMED CT(R) 1. Increasing frequency of seizure activity (CMS/HCC) SEIZURE Disposition: Discharge Follow up instructions: Duarte Santacruz MD [address] [facility], [address] [facility] [id number] Call in 1 day for follow up appt LYNN SHAFER FNP 01/25/192044 Cosigned by Mercy Thurman MD at 2019 7:39 AM CDT * Ivy Castaneda RN - 01/25/2019 1:50 PM CDT Bed: 20 Expected date: Expected time: Means of arrival: Ambulance - [facility] Comments: [id number] * Patricia Gillespie RN - 01/25/2019 1:49 PM CDT Patient arrives to ER per EMS. Patient reports having 3 seizures this morning while his administrative nursing supervisor was by his side. Patient reports being repsonsive during each seizure. Patient states he is currently on keppra and Depakote, and started taking a new seizure medication this morning, he only had one dose. He cannot recall the name. Patient reports he was in [facility] ER last night until 5AM, he received one dose of keppra during his stay. Seizure precautions currently implemented. documented in this encounter Plan of Treatment Not on file documented as of this encounter Procedures Procedure Name Priority Date/Time Associated Diagnosis Comments DRUG SCREEN RAPID STAT 01/25/2019 5:0 3 PM CDT URINALYSIS STAT 01/25/2019 5:03 PM CDT TSH W/REFLEX STAT 01/25/2019 4:02 PM CDT KEPPRA LEVEL STAT 01/25/2019 4:02 PM CDT COMPREHENSIVE METABOLIC PANEL STAT 01/25/2019 4:02 PM CDT CBC W/DIFF AUTOMATED STAT 01/25/2019 4:02 PM CDT VALPROIC ACID STAT 01/25/2019 4:02 PM CDT SALICYLATE STAT 01/25/2019 4:02 PM CDT ETHANOL STAT 01/25/2019 4:02 PM CDT ACETAMINOPHEN STAT 01/25/2019 4:02 PM CDT documented in this encounter Results * DRUG SCREEN RAPID (01/25/2019 5:03 PM CDT) [facility] AMPHETAMINE (U) NEGATIVE NEGATIVE 9 5:49 PM CDT [facility] BARBITURATES SCREEN (U) NEGATIVE NEGATIVE 01/25/2019 5:49 PM CDT [facility] BENZODIAZEPINES SCREEN (U) NEGATIVE NEGATIVE 01/25/2019 5:49 PM CDT [facility] CANNABINOIDS SCREEN (U) NEGATIVE NEGATIVE 01/25/2019 5:49 PM CDT [facility] COCAINE METABOLITES (U) NEGATIVE NEGATIVE 01/25/2019 5:49 PM CDT [facility] METHADONE (U) NEGATIVE NEGATIVE 01/25/2019 5:49 PM CDT [facility] OPIATE SCREEN (U) NEGATIVE NEGATIVE 019 5:49 PM CDT [facility] PHENCYCLIDINE PCP (U) NEGATIVE NEGATIVE 01/25/2019 5:49 PM CDT [facility] Comment: NOTE: RESULTS OF THIS DRUG SCREEN SHOULD BE USED FOR MEDICAL PURPOSES ONLY AND NOT FOR LEGAL OR EMPLOYMENT PURPOSES. POSITIVE RESULTS ARE NOT CONFIRMED. MEDICATIONS CONTAINING EPHEDRINE MAY CAUSE FALSE POSITIVE AMPHETAMINE CALL [phone], LAB, TO REQUEST CONFIRMATION TESTING. IF CREATININE IS <40 mg/dL. ??RECOLLECTION IS SUGGESTED. AMPHETAMINE- ?500 NG/ML BARBITURATE- ?200 NG/ML BENZODIAZEPINES- ??200 NG/ML THC- ? 50 NG/ML COCAINE- ?150 NG/ML METHADONE- ?300 NG/ML OPIATE- ? 300 MG/ML PCP- ? 25 NG/ML CREATININE (U) 202.0 39 - 259 MG/DL 01/25/2019 5:49 PM CDT [facility] Urine specimen (specimen) URINE SPECIMEN / Unknown 01/25/2019 5:03 PM CDT Juany Jennings [facility]- URINE ORDERABLES Final Re sult [facility] [address] [place] [address], * (ABNORMAL) URINALYSIS (01/25/2019 5:03 PM CDT) SPECIMEN TYPE URINE CLEAN CATCH 01/25/2019 5:03 PM CDT [facility] COLOR (U) YELLOW 01/25/2019 5:32 PM CDT [facility] TRANSPARENCY CLEAR 01/25/2019 5:32 PM CDT [facility] SPECIFIC GRAVITY (U) 1.025 1.001 - 1.030 01/25/2019 5:32 PM CDT [facility] U PH 6.0 5.0 - 9.0 01/25/2019 5:32 PM CDT [facility] LEUKOCYTES (U) NEGATIVE NEGATIVE 01/25/2019 5:32 PM CDT [facility] NITRITES NEGATIVE NEGATIVE 01/25/2019 5:32 PM CDT [facility] PROTEIN (U) NEGATIVE <30 MG/DL 01/25/2019 5:32 PM CDT [facility] URINE GLUCOSE NEGATIVE NEGATIVE MG/DL 01/25/2019 5:32 PM CDT [facility] KETONES MG/DL (U) TRACE(A) NEGATIVE MG/DL 01/25/2019 5:32 PM CDT [facility] UROBILINOGEN 4.0(A) NEGATIVE MG/DL 01/25/2019 5:32 PM CDT [facility] BILIRUBIN (U) NEGATIVE NEGATIVE MG/DL 01/25/2019 5:32 PM CDT [facility] BLOOD (U) NEGATIVE NEGATIVE 01/25/2019 5:32 PM CDT [facility] CULTURE & SENSITIVITY INDICATED? CULTURE IS NOT INDICATED 01/25/2019 5:32 PM CDT [facility] URINE SPECIMEN OBTAINED BY CLEAN CATCH PROCEDURE / Unknown 01/25/2019 5:03 PM CDT us Juany F Michaela SHOWROOM MANAGER-BC URINE ORDERABLES Final Re sult [facility] [address] [place] [address], [place] [phone] * VALPROIC ACID (01/25/2019 4:02 PM CDT) VALPROIC ACID 68.5 50 - 100 MCG/ML 01/25/2019 4:52 PM CDT [facility] Comment: ?THERAPEUTIC: 50-100 ?TOXIC: >150 DOSE UNKNOWN LAST DOSE 01/25/2019 4:56 PM CDT [facility] 01/25/2019 4:02 PM CDT [facility] Modesta Jennings [facility] Final Res ult Performing Organization Address [facility] de Phone Number [facility] [address] [place] [address], [place] [phone] * KEPPRA LEVEL (01/25/2019 4:02 PM CDT) KEPPRA 40.0 12.0 - 46.0 mcg/mL 01/30/2019 9:10 AM CDT [facility] Comment: Toxic level is not well established. Interpretation should include a clinical evaluation. For additional information, please refer to http://education.Best Before Media/faq/VOZ671 (This link is being provided for informational/ educational purposes only.) This test was developed and its analytical performance characteristics have been determined by [employer] [place], [place]. It has not been cleared or approved by the U.S. Food and Drug Administration. This assay has been validated pursuant to the CLIA regulations and is used for clinical purposes. Test Performed by [employer] [facility], [employer] [facility], [address] [place] [address] Levon Brewer M.D., Ph.D., Director of Laboratories , CLIA [id number] 01/25/2019 4:02 PM CDT Juany Jennings [facility] Final Res ult Performing Organization Address [facility]/ZIP Co de Phone Number [facility] [address] [place], [place] , [place] [phone] * TSH W/REFLEX (01/25/2019 4:02 PM CDT) TSH 1.150 0.358 - 3.74 uIU/ML 01/25/2019 4:52 PM CDT [facility] Comment: HIGH DOSES OF BIOTIN MAY INTERFERE WITH THIS TEST RESULT. CORRELATION TO CLINICAL HISTORY AND PRESENTATION RECOMMENDED. FREE T4 NOT INDICATED 01/25/2019 4:02 PM CDT [facility] [place] [place] LABORATORY Final Res ult Performing Organization Address [facility] Co de Phone Number [facility] [address] [place] [address], * SALICYLATE (01/25/2019 4:02 PM CDT) SALICYLATES 2.8 2.8 - 20.0 MG/DL 01/25/2019 4:38 PM CDT [facility] Comment: THERAPEUTIC: ?2.8-20.0 Toxic Level: ?>=30 01/25/2019 4:02 PM CDT [facility] Final Res ult Performing Organization Address [facility] Co de Phone Number [facility] [address] [place] [address], * (ABNORMAL) ACETAMINOPHEN (01/25/2019 4:02 PM CDT) ACETAMINOPHEN S/P/B <2.0(L) 10.0 - 30.0 MCG/ML 01/25/2019 4:52 PM CDT [facility] Comment: ?THERAPEUTIC: 10-30 ?TOXIC: >200 01/25/2019 4:02 PM CDT Juany Jennings [facility] Final Res ult Performing Organization Address City/[facility] Co de Phone Number [facility] [address] [place] [address], * ETHANOL (01/25/2019 4:02 PM CDT) ALCOHOL S/P/B <0.003 <0.003 G/DL 01/25/2019 4:52 PM CDT [facility] 01/25/2019 4:02 PM CDT Juany Jennings [facility] Final Res ult Performing Organization Address [facility] Co de Phone Number [facility] [address] [place] [address], [place] [phone] * (ABNORMAL) COMPREHENSIVE METABOLIC PANEL (01/25/2019 4:02 PM CDT) GLUCOSE 88 70 - 99 MG/DL 01/25/2019 4:52 PM CDT [facility] BUN 12 7 - 18 MG/DL 01/25/2019 4:52 PM CDT [facility] CREATININE S/P/B 0.67(L) 0.7 - 1.3 MG/DL 01/25/2019 4:52 PM CDT [facility] SODIUM S/P/B 140 136 - 145 MMOL/L 01/25/2019 4:52 PM CDT [facility] POTASSIUM S/P/B 3.8 3.5 - 5.1 MMOL/L 01/25/2019 4:52 PM CDT [facility] CHLORIDE S/P/B 106 100 - 108 MMOL/L 01/25/2019 4:52 PM T [facility] CO2 26.2 21 - 32 MMOL/L 01/25/2019 4:52 PM T [facility] CALCIUM S/P/B 8.9 8.5 - 10.1 MG/DL 01/25/2019 4:52 PM T [facility] BILIRUBIN TOTAL S/P/B 0.4 0.2 - 1.2 MG/DL 01/25/2019 4:52 PM T [facility] TOTAL PROTEIN S/P/B 6.7 6.4 - 8.2 G/DL 01/25/2019 4:52 PM T [facility] ALBUMIN S/P/B 3.9 3.4 - 5.0 G/DL 01/25/2019 4:52 PM T [facility] AST 13(L) 15 - 37 U/L 01/25/2019 4:52 PM T [facility] ALT 16 16 - 60 U/L 01/25/2019 4:52 PM T [facility] ALKALINE PHOSPHATASE S/P/B 62 50 - 136 U/L 01/25/2019 4:52 PM T [facility] ANION GAP 7.8 5 - 15 MMOL/L 01/25/2019 4:52 PM T [facility] BUN CREATININE RATIO 18.0 6 - 26 01/25/2019 4:52 PM T [facility] A/G RATIO 1.4 1.0 - 2.0 RATIO 01/25/2019 4:52 PM [facility] EGFR NON-AFR. AMER. >90 >90 ML/MIN/1.7 3 M2 01/25/2019 4:52 PM T [facility] EGFR AFR. AMER. >90 >90 ML/MIN/1.7 3 M2 01/25/2019 4:52 PM CDT [facility] Comment: NOTE: eGFR is not calculated for patients <18 years of age. This is an estimated GFR (CKD EPI) and should not be used for calculating drug doses. 01/25/2019 4:02 PM CDT Juany Jennings SHOWROOM MANAGER- LABORATORY Final Res ult [facility] [address] [place] [address], [place] [phone] * (ABNORMAL) CBC W/DIFF AUTOMATED (01/25/2019 4:02 PM CDT) WBC 6.6 4.5 - 11.0 x10'3/uL 01/25/2019 4:28 PM CDT [facility] RBC 4.28(L) 4.70 - 6.10 x10'6/uL 01/25/2019 4:28 PM CDT [facility] LAB HGB 13.9(L) 14.0 - 18.0 G/DL 01/25/2019 4:28 PM CDT [facility] HCT 40.9(L) 43.0 - 54.0 % 01/25/2019 4:28 PM CDT [facility] MCV 95.6(H) 80.0 - 94.0 FL 01/25/2019 4:28 PM CDT [facility] MCH 32.5(H) 27.0 - 31.0 PG 01/25/2019 4:28 PM CDT [facility] MCHC 34.0 32.0 - 36.0 G/DL 01/25/2019 4:28 PM CDT [facility] RDW 11.9 11.5 - 14.5 % 01/25/2019 4:28 PM CDT [facility] PLT 204 130 - 400 x10'3/uL 01/25/2019 4:28 PM CDT [facility] MPV 10.3 9.3 - 12.2 FL 01/25/2019 4:28 PM CDT [facility] DIFFERENTIAL TYPE AUTOMATED DIFFERENTIAL 01/25/2019 4:28 PM CDT [facility] NEUTROPHILS % 57.7 % 01/25/2019 4:28 PM CDT [facility] LYMPHOCYTES % 34.3 % 01/25/2019 4:28 PM CDT [facility] MONOCYTES % 5.5 % 01/25/2019 4:28 PM CDT [facility] EOSINOPHILS 2.0 % 01/25/2019 4:28 PM CDT [facility] BASOPHILS 0.2 % 01/25/2019 4:28 PM CDT [facility] IMMATURE GRANS % 0.3 % 01/26/20 4:28 PM CDT [facility] ABS. NEUTROPHILS TOTAL 3.79 1.80 - 7.70 x10'3/uL 01/25/2019 4:28 PM CDT [facility] ABS. LYMPHOCYTES 2.25 1.00 - 4.80 x10'3/uL 01/25/2019 4:28 PM CDT [facility] ABS. MONOCYTES 0.36 0.30 - 0.82 x10'3/uL 01/25/2019 4:28 PM CDT [facility] ABS. EOSINOPHILS 0.13 0.04 - 0.54 x10'3/uL 01/25/2019 4:28 PM CDT [facility] ABS. BASOPHILS 0.01 0.01 - 0.08 x10'3/uL 01/25/2019 4:28 PM CDT [facility] ABS. IMMATURE GRANULOCYTES 0.02 0.00 - 0.49 x10'3/uL 01/25/2019 4:28 PM CDT [facility] 01/25/2019 4:02 PM CDT Juany Jennings SHOWROOM MANAGER- LABORATORY Final Res ult [facility] [address] [place] [address], [place] [phone] documented in this encounter Visit Diagnoses Diagnosis Increasing frequency of seizure activity (CMS/HCC HHS/HCC)- Primary Other convulsions documented in this encounter Administered Medications Inactive Administered Medications - up to 3 most recent administrations Medication Order MAR Action Action Date Dose Rate Site sodium chloride 0.9% bolus infusion SOLN 1,000 mL 1,000 mL, Intravenous, Administer over 15 Minutes, Bolus (Once), 1 dose, On Marian 01/25/19 at 1800 New Bag 01/25/2019 5:53 PM CDT 1,000 mLs documented in this encounter Active and Recently Administered Medications Times are shown in CDT. Scheduled Medication Order 01/23/2019 01/24/2019 01/25/2019 sodium chloride 0.9% bolus infusion SOLN 1,000 mL (COMPLETED) 1,000 mL, Intravenous, Administer over 15 Minutes, Bolus (Once), 1 dose, On Marian 01/25/19 at 1800 1753 (New Bag - Prov ider: Patricia Gillespie RN)2009 (Infusion Stop Time - Provider: Suresh Cleary RN) documented in this encounter Care Teams Refining Engineer Relationship Specialty Start Date End Date Misael Maradiaga DO [address] [place] [address] PCP - General FAMILY PRACTICE 09/28/18 01/13/20 Frank Toure MD [address] [place] [address] [place] Fern Gatherer CARDIOVASCULAR DISEASE 05/30/16 documented as of this encounter
--- OUTSIDE RECORDS SUMMARY | 2024-06-08 05:51 | XMS_ITS | Encounter Summary ---
Author Organization [facility] Address [address] [place] [address] [place] [address] Care Team Providers Care Corporate Real Estate Specialist Name Role Phone Frank Toure MD Unavailable Misael Maradiaga DO Primary Care Provider + [phone] Reason for Visit * Reason Comments Seizure- Prior History Of Encounter Details Date Type Department Care Team (Late st Contact Info) Description 12/26/2018 12:59 PM CDT - 12/26/2018 3:40 PM CDT Emergency [facility] [place] [address] Lowell Still MD Seizure- Prior History Of Discharge Disposition: Home [...] Sign Reading Time Taken Comments Blood Pressure 138/91 12/26/2018 3:27 PM CDT Pulse 75 12/26/2018 3:27 PM CDT Temperature 36.8 ??C (98.2 ??F) 12/26/2018 12:36 PM C DT Respiratory Rate 18 12/26/2018 3:27 PM CDT Oxygen Saturation 99% 12/26/2018 3:27 PM CDT Inhaled Oxygen Concentration - - Weight 62.3 kg (137 lb 5.6 oz) 12/26/2018 12:36 PM CDT Height 180.3 cm (5' 11 ) 12/26/2018 12:36 PM CDT Body Mass Index 19.16 12/26/2018 12:36 PM CDT documented in this encounter [...] documented in this encounter Discharge Instructions * Attachments The following attachments cannot be sent through Care Everywhere. * Seizures Discharge Instructions, Adult (Azeri) documented in this encounter Medications at Time of Discharge vitamin B-1 100 MG TabIndications:Tara llanes ([facility]/HCC [facility]) Take 1 tablet (100 mg total) by mouth daily. 30 tablet 12/13/2018 acetaminophen 325 MG tablet 12/12/2018 9 amlodipine 5 MG tabletIndications: Essential hypertension Take 1 tablet (5 mg total) by mouth daily. 30 tablet 12/19/2018 9 aspirin 81 MG chewable tabletIndications: Seizure (CMS/HCC HHS/HCC) Chew 1 tablet (81 mg total) by mouth daily. 30 tablet 12/13/2018 9 atorvastatin 20 MG tabletIndications: Seizure (CMS/HCC HHS/HCC) Take 1 tablet (20 mg total) by mouth daily. 30 tablet 12/13/2018 9 clonazePAM 0.5 MG tablet TK 1 T PO Q 8 H PRN. PLEASE CALL OFFICE IF SEIZURES OCCUR AFTER TAKING. 5 08/09/2018 1 divalproex EC 500 MG tabletIndications: Seizure (CMS/HCC HHS/HCC) Take 1 tablet (500 mg total) by mouth 2 (two) times daily. 60 tablet 12/12/2018 9 folic acid 1 MG tabletIndications: Seizure (CMS/HCC HHS/HCC) Take 1 tablet (1 mg total) by mouth daily. 30 tablet 12/13/2018 9 levETIRAcetam 1000 MG tabletIndications: Seizure (CMS/HCC HHS/HCC) Take 2 tablets (2,000 mg total) by mouth 2 (two) times daily. 60 tablet 12/12/2018 2 levETIRAcetam 750 MG tablet Take 2,250 mg by mouth 2 (two) times daily. 11 12/20/2018 9 OXcarbazepine 150 MG tabletIndications: Seizure (CMS/HCC HHS/HCC) Take 3 tablets (450 mg total) by mouth 2 (two) times daily. 60 tablet 12/12/2018 0 tamsulosin 0.4 MG CapIndications:Sei zure (CMS/HCC HHS/HCC) Take 1 capsule (0.4 mg total) by mouth daily. 30 capsule 12/13/2018 9 documented as of this encounter ED Notes * Mayra Stewart RN - 12/26/2018 3:29 PM CDT AT BEDSIDE SPEAKING WITH PT SISTER PRIOR TO DC * Mayra Stewart RN - 12/26/2018 2:[address] AWARE OF PT SEIZURE LIKE EPISODE. NO NEW ORDERS. * Mayra Stewart RN - 12/26/2018 2:34 PM CDT RN WITNESSED PT HAVING EPISODE OF EXTREMITIES SHAKING X 1 MINUTE, PT REMAINED AWAKE DURING THIS EPISODE. PT TALKING AND FOLLOWING COMMANDS AFTER EPISODE. STATES I'M GLAD YOU PUT AN IV IN * Lowell Still MD - 12/26/2018 1:14 PM CDT Chief Complaint Chief Complaint Patient presents with ??? Seizure- Prior History Of History of Present Illness History provided by: Patient official court interpreter used: No Seizure- Prior History Of The patient is a 58-year-old male with a pmh of seizures on keppra, HTN, HLD and CVA with residual left sided weakness who is presenting for a witnessed seizure. Patient reports he has seizures ~ once a month but has been out of his keppra for 2 weeks. Recently got it refilled last night. Last dosewas this morning. Neurologist is at [facility] whom he has a follow-up with tomorrow. He states he has been getting a lack of sleep which in the past has caused him to have seizures. Patient feeling much better now and denies any symptoms. Medical History ALLERGIES: No Known Allergies MEDICATIONS: Prior to Admission medications Medication Sig Start Date End Date Taking? Authorizing Provider amlodipine 5 MG tablet Take 1 tablet (5 mg total) by mouth daily. 12/19/18 Joyce Luevano, BOUCHRA aspirin 81 MG chewable tablet Chew 1 tablet (81 mg total) by mouth daily. 12/13/18 Karmen Johnson MD atorvastatin 20 MG tablet Take 1 tablet (20 mg total) by mouth daily. 12/13/18 Karmen Johnson MD clonazePAM 0.5 MG tablet TK 1 T PO Q 8 H PRN. PLEASE CALL OFFICE IF SEIZURES OCCUR AFTER TAKING. 08/09/18 Doc Abstract divalproex EC 500 MG tablet Take 1 tablet (500 mg total) by mouth 2 (two) times daily. 12/12/18 Karmen Johnson MD folic acid 1 MG tablet Take 1 tablet (1 mg total) by mouth daily. 12/13/18 Karmen Johnson MD levETIRAcetam 1000 MG tablet Take 2 tablets (2,000 mg total) by mouth 2 (two) times daily. 12/12/18 Karmen Johnson MD OXcarbazepine 150 MG tablet Take 3 tablets (450 mg total) by mouth 2 (two) times daily. 12/12/18 Jaxon Johnson MD tamsulosin 0.4 MG Cap Take 1 capsule (0.4 mg total) by mouth daily. 12/13/18 Karmen Johnson MD vitamin B-1 100 MG Tab Take 1 tablet (100 mg total) by mouth daily. 12/13/18 Karmen Johnson MD PAST MEDICAL HISTORY: Past Medical History: Diagnosis Date ??? HLD (hyperlipidemia) ??? Hypertension ??? Seizures (CMS/HCC) ??? Seizures (CMS/HCC) ??? Stroke (CMS/HCC) lt side weakness PAST SURGICAL HISTORY: Past Surgical History: Procedure Laterality Date ??? NONE FAMILY HISTORY: Family History Family history unknown: Yes SOCIAL HISTORY: Social History Tobacco Use ??? Smoking status: Current Every Day Smoker ??? Smokeless tobacco: Never Used Substance Use Topics ??? Alcohol use: No ??? Drug use: No Review of Systems Review of Systems Constitutional: Negative for fever. Eyes: Negative for pain. Respiratory: Negative for shortness of breath. Cardiovascular: Negative for chest pain. Genitourinary: Negative for dysuria. Musculoskeletal: Negative for myalgias. Skin: Negative for rash. Neurological: Positive for seizures. Negative for headaches. Psychiatric/Behavioral: The patient is not nervous/anxious. Physical Exam Filed Vitals: 12/26/18 1236 12/26/18 1326 BP: 147/88 145/90 Pulse: 82 72 Resp: 18 20 Temp: 98.2 ??F (36.8 ??C) TempSrc: Oral SpO2: 99% 99% Weight: 62.3 kg (137 lb 5.6 oz) Height: 5' 11 (1.803 m) Physical Exam Constitutional: He is oriented to person, place, and time. He appears well- developed and well-nourished. No distress. HENT: Head: Normocephalic and atraumatic. Eyes: Conjunctivae and EOM are normal. Pupils are equal, round, and reactive to light. Neck: Normal range of motion. Neck supple. Cardiovascular: Normal rate, regular rhythm and normal heart sounds. Pulmonary/Chest: Effort normal and breath sounds normal. No respiratory distress. Abdominal: Soft. Bowel sounds are normal. Neurological: He is alert and oriented to person, place, and time. Skin: Skin is warm and dry. Psychiatric: He has a normal mood and affect. His behavior is normal. Diagnostic Studies / Procedures ELECTROCARDIOGRAMS: No results found for this visit on 12/26/18. LABORATORY STUDIES: Results for orders placed or performed during the hospital encounter of 12/26/18 CBC W/DIFF AUTOMATED Result Value Ref Range WBC 4.7 4.5 - 11.0 x10'3/uL RBC 4.27 (L) 4.70 - 6.10 x10'6/uL HGB 13.9 (L) 14.0 - 18.0 G/DL HCT 40.0 (L) 43.0 - 54.0 % MCV 93.7 80.0 - 94.0 FL MCH 32.6 (H) 27.0 - 31.0 PG MCHC 34.8 32.0 - 36.0 G/DL RDW 12.0 11.5 - 14.5 % PLT 179 130 - 400 x10'3/uL MPV 10.8 9.3 - 12.2 FL DIFFERENTIAL TYPE AUTOMATED DIFFERENTIAL NEUTROPHILS 52.4 % LYMPHOCYTES 32.9 % MONOCYTES 8.5 % EOSINOPHILS 5.1 % BASOPHILS 0.9 % IMMATURE GRANS 0.2 % ABS. NEUTROPHILS TOTAL 2.45 1.80 - 7.70 x10'3/uL ABS. LYMPHOCYTES 1.54 1.00 - 4.80 x10'3/uL ABS. MONOCYTES 0.40 0.30 - 0.82 x10'3/uL ABS. EOSINOPHILS 0.24 0.04 - 0.54 x10'3/uL ABS. BASOPHILS 0.04 0.01 - 0.08 x10'3/uL ABS. IMMATURE GRANULOCYTES 0.01 0.00 - 0.49 x10'3/uL COMPREHENSIVE METABOLIC PANEL Result Value Ref Range GLUCOSE 88 70 - 99 MG/DL BUN 8 7 - 18 MG/DL CREATININE 0.72 0.7 - 1.3 MG/DL SODIUM 135 (L) 136 - 145 MMOL/L POTASSIUM 3.6 3.5 - 5.1 MMOL/L CHLORIDE 101 100 - 108 MMOL/L CO2 24.9 21 - 32 MMOL/L CALCIUM 8.9 8.5 - 10.1 MG/DL TOTAL BILIRUBIN 0.4 0.2 - 1.2 MG/DL TOTAL PROTEIN 6.9 6.4 - 8.2 G/DL ALBUMIN 4.0 3.4 - 5.0 G/DL AST 20 15 - 37 U/L ALT 15 (L) 16 - 60 U/L ALK PHOS 52 50 - 136 U/L ANION GAP 9.1 5 - 15 MMOL/L BUN CREATININE RATIO 11.1 6 - 26 A/G RATIO 1.4 1.0 - 2.0 RATIO eGFR Non-Afr. Amer. >90 >90 ML/MIN/1.73 M2 eGFR Afr. Amer. >90 >90 ML/MIN/1.73 M2 VALPROIC ACID Result Value Ref Range VALPROIC ACID 41.7 (L) 50 - 100 MCG/ML DOSE UNKNOWN LAST DOSE IMAGING STUDIES No orders to display ED Course / Medical Decision Making MDM Number of Diagnoses or Management Options Seizure (CMS/HCC): Diagnosis management comments: Labs unremarkable, valproate level slightly subtherapeutic, patient asymptomatic, exam benign, vital signs stable, sister at bedside states patient does have all his medication and is compliant, discharged home, has follow-up with neurologist tomorrow. MDM Diagnosis management comments: 58-year-old male presents w/ seizure Pulse oximetry interpreted by me: 99% on room air. Impression normal. Rhythm strip interpreted by me: Normal sinus rhythm, rate of 72. No arrhythmias. Clinical Impression Seizure (CMS/HCC) (Primary) Disposition: Data Unavailable I, Saloni Harp, acting as a scribe, am personally taking down the notes in the presence of Dr. Lowell Still MD. Take no action on this note until reviewed and authenticated by the physician. Lowell Still MD 12/26/181954 * Yany Alvarez RN - 12/26/2018 12:59 PM CDT Bed: 17 Expected date: Expected time: Means of arrival: Ambulance - Other Comments: [id number] to room 17 * Mayra Stewart RN - 12/26/2018 12:38 PM CDT TO ER 17 PER EMS FROM HOME FOR EVALUATION OF POSSIBLE SEIZURE. PT ILLUSIONIST NOTED PT TO HAVE A SHAKING EPISODE THIS AM, UNKNOWN DURATION. HX; SEIZURES. PER EMS PT WAS NOT NOTED TO BE POST-ICTAL, ALERT UPON ARRIVAL. DENIES C/O UPON ARRIVAL. GLUCOSE 103. PT STATES HE RAN OUT OF [employer] 2 WEEKS AGO. TAKES MULTIPLE SEIZURE MEDS. documented in this encounter Plan of Treatment Not on file documented as of this encounter Procedures Procedure Name Priority Date/Time Associated Diagnosis Comments TRILEPTAL STAT 12/26/2018 1:19 PM CDT COMPREHENSIVE METABOLIC PANEL STAT 12/26/2018 1:19 PM CDT CBC W/DIFF AUTOMATED STAT 12/26/2018 1:19 PM CDT VALPROIC ACID STAT 12/26/2018 1:19 PM CDT documented in this encounter Results * (ABNORMAL) TRILEPTAL (12/26/2018 1:19 PM CDT) TRILEPTAL 5.7(L) 8.0 - 35.0 mcg/mL 12/30/2018 3:09 PM CDT [employer] JAQUAN BRIGGS Comment: Test Performed by Sterling Rizvi, [facility], [address] [place] [id number] Levon Brewer M.D., Ph.D., Director of Laboratories , [facility] [id number] 12/26/2018 1:19 PM CDT Lowell Still MD LABORATORY Final Result [facility] [address] [place] [address], [place] [phone] * (ABNORMAL) VALPROIC ACID (12/26/2018 1:19 PM CDT) Pathologist [facility] VALPROIC ACID 41.7(L) 50 - 100 MCG/ML 12/26/2018 2:16 PM CDT [facility] Comment: ?THERAPEUTIC: 50-100 ?TOXIC: >150 DOSE UNKNOWN LAST DOSE 12/26/2018 5:20 PM CDT [facility] 12/26/2018 1:19 PM CDT Lowell Still MD LABORATORY Final Result Performing Organization Address [facility]/ZIP Co de Phone Number [facility] [address] [place] [address], [place] [phone] * (ABNORMAL) COMPREHENSIVE METABOLIC PANEL (12/26/2018 1:19 PM CDT) GLUCOSE 88 70 - 99 MG/DL 12/26/2018 2:16 PM CDT [facility] BUN 8 7 - 18 MG/DL 12/26/2018 2:16 PM CDT [facility] CREATININE S/P/B 0.72 0.7 - 1.3 MG/DL 12/26/2018 2:16 PM CDT [facility] SODIUM S/P/B 135(L) 136 - 145 MMOL/L 12/26/2018 2:16 PM CDT [facility] POTASSIUM S/P/B 3.6 3.5 - 5.1 MMOL/L 12/26/2018 2:16 PM CDT [facility] CHLORIDE S/P/B 101 100 - 108 MMOL/L 12/26/2018 2:16 PM CDT [facility] CO2 24.9 21 - 32 MMOL/L 12/26/2018 2:16 PM CDT [facility] CALCIUM S/P/B 8.9 8.5 - 10.1 MG/DL 12/26/2018 2:16 PM CDT [facility] BILIRUBIN TOTAL S/P/B 0.4 0.2 - 1.2 MG/DL 12/26/2018 2:16 PM CDT [facility] TOTAL PROTEIN S/P/B 6.9 6.4 - 8.2 G/DL 12/26/2018 2:16 PM CDT [facility] ALBUMIN S/P/B 4.0 3.4 - 5.0 G/DL 12/26/2018 2:16 PM T [facility] AST 20 15 - 37 U/L 12/26/2018 2:16 PM T [facility] ALT 15(L) 16 - 60 U/L 12/26/2018 2:16 PM CDT [facility] ALKALINE PHOSPHATASE S/P/B 52 50 - 136 U/L 12/26/2018 2:16 PM T [facility] ANION GAP 9.1 5 - 15 MMOL/L 12/26/2018 2:16 PM T [facility] BUN CREATININE RATIO 11.1 6 - 26 12/26/2018 2:16 PM T [facility] A/G RATIO 1.4 1.0 - 2.0 RATIO 12/26/2018 2:16 PM CDT [facility] EGFR NON-AFR. AMER. >90 >90 ML/MIN/1.7 3 M2 12/26/2018 2:16 PM CDT [facility] EGFR AFR. AMER. >90 >90 ML/MIN/1.7 3 M2 12/26/2018 2:16 PM CDT [facility] Comment: NOTE: eGFR is not calculated for patients <18 years of age. This is an estimated GFR (CKD EPI) and should not be used for calculating drug doses. 12/26/2018 1:19 PM CDT Lowell Still MD LABORATORY Final Result [facility] [address] [place] [address], * (ABNORMAL) CBC W/DIFF AUTOMATED (12/26/2018 1:19 PM CDT) WBC 4.7 4.5 - 11.0 x10'3/uL 12/26/2018 1:57 PM CDT [facility] RBC 4.27(L) 4.70 - 6.10 x10'6/uL 12/26/2018 1:57 PM CDT [facility] HGB 13.9(L) 14.0 - 18.0 G/DL 12/26/2018 1:57 PM CDT [facility] HCT 40.0(L) 43.0 - 54.0 % 12/26/2018 1:57 PM CDT [facility] MCV 93.7 80.0 - 94.0 FL 12/26/2018 1:57 PM CDT [facility] MCH 32.6(H) 27.0 - 31.0 PG 12/26/2018 1:57 PM CDT [facility] MCHC 34.8 32.0 - 36.0 G/DL 12/26/2018 1:57 PM CDT [facility] RDW 12.0 11.5 - 14.5 % 12/26/2018 1:57 PM CDT [facility] PLT 179 130 - 400 x10'3/uL 12/26/2018 1:57 PM CDT [facility] MPV 10.8 9.3 - 12.2 FL 12/26/2018 1:57 PM CDT [facility] DIFFERENTIAL TYPE AUTOMATED DIFFERENTIAL 12/26/2018 1:57 PM CDT [facility] NEUTROPHILS % 52.4 % 12/26/2018 1:57 PM CDT [facility] LYMPHOCYTES % 32.9 % 12/26/2018 1:57 PM CDT [facility] MONOCYTES % 8.5 % 12/26/2018 1:57 PM CDT [facility] EOSINOPHILS 5.1 % 12/26/2018 1:57 PM CDT [facility] BASOPHILS 0.9 % 12/26/2018 1:57 PM CDT [facility] IMMATURE GRANS % 0.2 % 12/27/19 19 1:57 PM CDT [facility] ABS. NEUTROPHILS TOTAL 2.45 1.80 - 7.70 x10'3/uL 12/26/2018 1:57 PM CDT [facility] ABS. LYMPHOCYTES 1.54 1.00 - 4.80 x10'3/uL 12/26/2018 1:57 PM CDT [facility] ABS. MONOCYTES 0.40 0.30 - 0.82 x10'3/uL 12/26/2018 1:57 PM CDT [facility] ABS. EOSINOPHILS 0.24 0.04 - 0.54 x10'3/uL 12/26/2018 1:57 PM CDT [facility] ABS. BASOPHILS 0.04 0.01 - 0.08 x10'3/uL 12/26/2018 1:57 PM CDT [facility] ABS. IMMATURE GRANULOCYTES 0.01 0.00 - 0.49 x10'3/uL 12/26/2018 1:57 PM CDT [facility] 12/26/2018 1:19 PM CDT Lowell Still MD LABORATORY Final Result [facility] [address] [place] [address], documented in this encounter Visit Diagnoses Diagnosis Seizure ([facility]/HCC [facility]/HCC)- Primary Other convulsions documented in this encounter Care Teams Corporate Real Estate Specialist Relationship Specialty Start Date End Date Misael Maradiaga DO [address] [place] [address] PCP - General FAMILY PRACTICE 09/28/18 01/13/20 Frank Toure MD [address] [place] [address] [employer] Junior Systems Analyst CARDIOVASCULAR DISEASE 05/30/16 documented as of this encounter
--- OUTSIDE RECORDS SUMMARY | 2024-06-08 05:51 | XMS_ITS | Encounter Summary ---
Author Organization [facility] Address [address] [place] [address] [place] [address] Care Team Providers Care Suction Worker Name Role Phone Frank Toure MD Unavailable Misael Maradiaga DO Primary Care Provider + [phone] Encounter Details Date Type Department Care Team (Latest Contact Info) Description 05/02/2019 Scan HEALTH INFO SRVCS Scanned, Documents Social [...] on filedocumented in this encounter Care Teams Suction Worker Relationship Specialty Start Date End Date Misael Maradiaga DO [address] [place] [address] PCP - General FAMILY PRACTICE 09/28/18 01/13/20 Frank Toure MD [address] [place] [address] [employer] Irrigation Laborer CARDIOVASCULAR DISEASE 05/30/16 documented as of this encounter
--- OUTSIDE RECORDS SUMMARY | 2024-06-08 05:51 | XMS_ITS | Encounter Summary ---
Author Organization [facility] Address [address] [place], [place] [address] [place] [address] Care Team Providers Care Supervisor Drawing Name Role Phone Frank Toure MD Unavailable Joyce Luevano NP Primary Care Provider Unavaila ble Reason for Visit * Reason Comments Image (SCAN) Encounter Details Date Type Department Care Team (Latest Contact Info) Description 10/23/2020 Scan HEALTH INFO SRVCS Scanned, Documents Image (SCAN) Social History Tobacco Use Types [...] Priority Date/Time Associated Diagnosis Comments IMAGE GENERIC 10/23/2020 documented in this encounter Results * IMAGE GENERIC (10/23/2020) Anatomical Region Laterality Modality Other 10/23/2020 Narrative 10/23/2020 Ordered by an unspecified provider. us Documents Scanned SCANNING Final Result documented in this encounter Visit Diagnoses Not on filedocumented in this encounter Care Teams Supervisor Drawing Relationship Specialty Start Date End Date Joyce Luevano NP [address] [place] [address] PCP - General NURSE PRACTITIONER 01/14/20 10/26/23 Frank Toure MD [address] [place] [address] [place] Senior Game Designer CARDIOVASCULAR DISEASE 05/30/16 documented as of this encounter
--- OUTSIDE RECORDS SUMMARY | 2024-06-08 05:51 | XMS_ITS | Encounter Summary ---
Author Organization [facility] Address [address] [facility]. [place], [place] [address] [place] [address] Care Team Providers Care Medical I D Sales Name Role Phone Frank Toure MD Unavailable Josse Arboleda DO Primary Care Provider [phone] Reason for Visit * Reason Comments ER F/U Went to [facility] for seizure. Throat Problem Encounter Details Date Type Department Care Team (Late st Contact Info) Description 01/02/2019 8:40 AM CDT Office Visit [facility] Family Medicine - [address] [address] Josse Arboleda DO [address] [place] [phone] ER F/U (Went to [facility] for seizure.); Throat Problem Social History Tobacco Use Types Packs/Day Years [...] Sign Reading Time Taken Comments Blood Pressure 109/70 01/02/2019 8:46 AM CDT Pulse 78 01/02/2019 8:46 AM CDT Temperature 36.8 ??C (98.2 ??F) 01/02/2019 8:46 AM CD T Respiratory Rate 14 01/02/2019 8:46 AM CDT Oxygen Saturation 100% 01/02/2019 8:46 AM CDT Inhaled Oxygen Concentration - - Weight 58.5 kg (129 lb) 01/02/2019 8:46 AM CDT Height - - Body Mass Index 17.99 12/26/2018 12:36 PM CDT documented in this [...] documented in this encounter Progress Notes * Josse Arboleda, - 01/02/2019 8:40 AM CDT Images from the original note were not included. OFFICE FOLLOW UP NOTE Encounter Date: 01/02/2019 Chief Complaint: 58-year-old male presents for ER F/U (Went to [facility] for seizure.) and Throat Problem . HPI F/u SZ I reviewed notes from [facility] Pt has been having breakthrough SZ for several years He has been managing his own meds and there have been questions about whether or not he is able to do this He refuses any outside assistance He is here with sister and brother today Since last week, brother has taken over all meds for patient He will be administering and monitoring Bi's meds from here on out Divalproax has been DC and replaced with Aptiom, which family feels Bi is now much more active and clear state of mind No SZ since DC from hospital last week Aptiom tabs are large, so he has difficulty swallowing them Review of Systems Constitutional: Negative for chills and fever. Respiratory: Negative for cough, shortness of breath and wheezing. Cardiovascular: Negative for chest pain, palpitations and PND. Gastrointestinal: Negative for constipation, diarrhea, nausea and vomiting. Neurological: Negative for weakness. Patient Active Problem List Diagnosis ??? Seizure (CMS/HCC) ??? Osteoporosis ??? UTI (urinary tract infection) ??? Encephalopathy acute ??? Cerebrovascular accident (CVA) due to thrombosis of right posterior cerebral artery (CMS/HCC) ??? Hyperlipidemia ??? Hypertension ??? Seizure (CMS/HCC) ??? Encephalopathy Past Medical History: Diagnosis Date ??? HLD (hyperlipidemia) ??? Hypertension ??? Seizures (CMS/HCC) ??? Seizures (CMS/HCC) ??? Stroke (CMS/HCC) lt side weakness Past Surgical History: Procedure Laterality Date ??? NONE Family History Family history unknown: Yes History Smoking Status ??? Current Every Day Smoker Smokeless Tobacco ??? Never Used Social History Substance and Sexual Activity Drug Use No Social History Substance and Sexual Activity Alcohol Use No Immunization History Administered Date(s) Administered ??? Tdap (Boostrix) 06/06/2017 Current Outpatient Medications Medication Sig Dispense Refill ??? acetaminophen 325 MG tablet ??? amlodipine 5 MG tablet Take 1 tablet (5 mg total) by mouth daily. 30 tablet 0 ??? APTIOM 800 MG Tab daily. ??? aspirin 81 MG chewable tablet Chew 1 tablet (81 mg total) by mouth daily. 30 tablet 0 ??? atorvastatin 20 MG tablet Take 1 tablet (20 mg total) by mouth daily. 30 tablet 0 ??? clonazePAM 0.5 MG tablet TK 1 T PO Q 8 H PRN. PLEASE CALL OFFICE IF SEIZURES OCCUR AFTER TAKING. 5 ??? Eslicarbazepine Acetate 800 MG Tab Take 800 mg by mouth. ??? folic acid 1 MG tablet Take 1 tablet (1 mg total) by mouth daily. 30 tablet 0 ??? levETIRAcetam 1000 MG tablet Take 2 tablets (2,000 mg total) by mouth 2 (two) times daily. 60 tablet 0 ??? OXcarbazepine 150 MG tablet Take 3 tablets (450 mg total) by mouth 2 (two) times daily. 60 tablet 0 ??? sodium chloride 1 GM tablet Take 1 g by mouth. ??? tamsulosin 0.4 MG Cap Take 1 capsule (0.4 mg total) by mouth daily. 30 capsule 0 ??? vitamin B-1 100 MG Tab Take 1 tablet (100 mg total) by mouth daily. 30 tablet 0 No current facility-administered medications for this visit. No Known Allergies Objective: Filed Vitals: 01/02/19 0846 BP: 109/70 Pulse: 78 Resp: 14 Temp: 98.2 ??F (36.8 ??C) TempSrc: Temporal SpO2: 100% Weight: 58.5 kg (129 lb) Physical Exam Constitutional: He is oriented to person, place, and time and well-developed, well-nourished, and in no distress. HENT: Head: Normocephalic and atraumatic. Mouth/Throat: Oropharynx is clear and moist. No oropharyngeal exudate. Eyes: Conjunctivae and EOM are normal. Right eye exhibits no discharge. Left eye exhibits no discharge. No scleral icterus. Neck: No JVD present. Cardiovascular: Normal rate, regular rhythm and normal heart sounds. Exam reveals no gallop and no friction rub. No murmur heard. Pulmonary/Chest: Effort normal and breath sounds normal. No respiratory distress. He has no wheezes. He has no rales. Abdominal: Soft. He exhibits no distension. There is no hepatosplenomegaly. There is no tenderness. Musculoskeletal: Normal range of motion. Neurological: He is alert and oriented to person, place, and time. No cranial nerve deficit. Skin: Skin is warm and dry. Psychiatric: Mood and affect normal. Vitals reviewed. Assessment / Plan: 1. Seizure (CMS/[facility]) Counseled pt and family on SZ disorder Bi is now agreeable to having family take over his meds He continues to refuse any nursing or assisted living But is ok with his brother helping him out He will cont to f/u with neurologist later this month JOSSE ARBOLEDA DO documented in this encounter Plan of Treatment Not on file documented as of this encounter Visit Diagnoses Diagnosis Seizure ([facility]/HCC [facility]/HCC)- Primary Other convulsions documented in this encounter Care Teams Medical I D Sales Relationship Specialty Start Date End Date Josse Arboleda DO [address] [place] [address] PCP - General FAMILY PRACTICE 09/28/18 01/13/20 Frank Toure MD [address] [place] [address] [employer] Hydroelectric Plant Operator CARDIOVASCULAR DISEASE 05/30/16 documented as of this encounter
--- OUTSIDE RECORDS SUMMARY | 2024-06-08 05:51 | XMS_ITS | Encounter Summary ---
Author Organization [facility] Address [address] [facility]. [place], [place] [address] [place] [address] Care Team Providers Care Special Deputy Sheriff Name Role Phone Frank Toure MD Unavailable Jocye Luevano NP Primary Care Provider Yaneth ledesma Encounter Details Date Type Department Care Team (Latest Contact Info) Description 03/03/2021 Travel Social History Tobacco Use Types Packs/Day [...] have Coronavirus / COVID-19? No / Unsure 03/03/2021 9:28 AM CDT documented as of this encounter [...] on filedocumented in this encounter Care Teams Special Deputy Sheriff Relationship Specialty Start Date End Date Joyce Luevano NP [address] [place] [address] PCP - General NURSE PRACTITIONER 01/14/20 10/26/23 Frank Toure MD [address] [place] [address] [employer] Curriculum Development Coordinator CARDIOVASCULAR DISEASE 05/30/16 documented as of this encounter
--- OUTSIDE RECORDS SUMMARY | 2024-06-08 05:51 | XMS_ITS | Encounter Summary ---
Author Organization [facility] Address [address] [facility] [place] [address] [place] [address] Care Team Providers Care Insurance Claims Examiner Name Role Phone Frank Toure MD Unavailable Misael Maradiaga DO Primary Care Provider [phone] Reason for Visit * Reason Onset Date Comments Refill Request 01/10/2019 Encounter Details Date Type Department Care Team (Late st Contact Info) Description 01/10/2019 Telephone [facility] Family Medicine - [address] [place] [address] Misael Maradiaga DO [address] [place] [phone] Refill Request Social History Tobacco Use Types Packs/Day [...] in this encounter Progress Notes * Yonatan Horvath RN - 01/10/2019 1:31 PM CDT RX sent in to pharmacy per request. * Veronica Herr - 01/10/2019 1:25 PM CDT [facility] [phone] PHONE [phone] FFAX ACETAMINOPHEN 325 MG ONE TAB BY MOUNT EVERY 8 HOURS IF NEEDED documented in this encounter Plan of Treatment Not on file documented as of this encounter Visit Diagnoses Diagnosis Headache, unspecified headache type- Primary documented in this encounter Care Teams Insurance Claims Examiner Relationship Specialty Start Date End Date Misael Maradiaga DO [address] [place] [address] PCP - General FAMILY PRACTICE 09/28/18 01/13/20 Frank Toure MD [address] [place] [address] [employer]ivo Quill Skinner CARDIOVASCULAR DISEASE 05/30/16 documented as of this encounter
--- OUTSIDE RECORDS SUMMARY | 2024-06-08 05:51 | XMS_ITS | Encounter Summary ---
Author Organization [facility] Address [address] [facility]. [place], [place] [address] [place] [address] Care Team Providers Care Doctor Of Dental Surgery Name Role Phone Frank Toure MD Unavailable Joyce Luevano SLAGGER Primary Care Provider Unavaila ble Reason for Visit * Reason Comments Lab (SCAN) Encounter Details Date Type Department Care Team (Latest Contact Info) Description 05/01/2021 Scan HEALTH INFO SRVCS Scanned, Documents Lab (SCAN) Social History Tobacco Use Types Packs/Day [...] 12/04/2018 2:03 PM CDT Acti ve * Do you have serious difficulty walking [...] Procedure Name Priority Date/Time Associated Diagnosis Comments OUTSIDE LAB (SCAN ORDER) 05/01/2021 documented in this encounter Results * OUTSIDE LAB (SCAN) (05/01/2021) 05/01/2021 Narrative 05/01/2021 Ordered by an unspecified provider. us Documents Scanned SCANNING Final Result documented in this encounter Visit Diagnoses Not on filedocumented in this encounter Care Teams Doctor Of Dental Surgery Relationship Specialty Start Date End Date Joyce Luevano NP [address] [place] [address] PCP - General NURSE PRACTITIONER 01/14/20 10/26/23 Frank Toure MD [address] [place] [address] [place] Bakery Helper CARDIOVASCULAR DISEASE 05/30/16 documented as of this encounter
--- OUTSIDE RECORDS SUMMARY | 2024-06-08 05:51 | XMS_ITS | Encounter Summary ---
Author Organization [facility] Address [address] [place] [address] [place] [address] Care Team Providers Care Managed Security Sales Consultant Name Role Phone Frank Toure MD Unavailable Misael Maradiaga DO Primary Care Provider + [phone] Encounter Details Date Type Department Care Team (Latest Contact Info) Description 12/26/2019 Scan HEALTH INFO SRVCS Scanned, Documents Social [...] on filedocumented in this encounter Care Teams Managed Security Sales Consultant Relationship Specialty Start Date End Date Misael Maradiaga DO [address] [place] [address] PCP - General FAMILY PRACTICE 09/28/18 01/13/20 Frank Toure MD [address] [place] [address] [employer]ivo Trench Pipe Layer CARDIOVASCULAR DISEASE 05/30/16 documented as of this encounter
--- OUTSIDE RECORDS SUMMARY | 2024-06-08 05:51 | XMS_ITS | Encounter Summary ---
Author Organization [facility] Address [address] [facility]. [place], [place] [address] [place] [address] Care Team Providers Care Electric Trucker Name Role Phone Frank Toure MD Unavailable Misael Maradiaga DO Primary Care Provider [phone] Joyce Luevano NP Primary Care Provider Unavaila ble Encounter Details Date Type Department Care Team (Latest Contact Info) Description 05/25/2019 Scan HEALTH INFO SRVCS Scanned, Documents Social [...] have Coronavirus / COVID-19? No / Unsure 01/22/2020 10:33 AM CDT documented as of this encounter [...] 12/04/2018 2:03 PM Anahi Chavraria RN Active * Do you have difficulty [...] on filedocumented in this encounter Care Teams Electric Trucker Relationship Specialty Start Date End Date Misael Maradiaga DO [address] [place] [address] PCP - General FAMILY PRACTICE 09/28/18 01/13/20 Joyce Luevano NP [address] [place] [address] PCP - General NURSE PRACTITIONER 01/14/20 10/26/23 Frank Toure MD [address] [place] [address] [place] Laster Hand CARDIOVASCULAR DISEASE 05/30/16 documented as of this encounter
--- OUTSIDE RECORDS SUMMARY | 2024-06-08 05:51 | XMS_ITS | Encounter Summary ---
Author Organization [facility] Address [address] [facility]. [place], [place] [address] [place] [address] Care Team Providers Care Retail Parts Professional Name Role Phone Frank Toure MD Unavailable Joyce Luevano NP Primary Care Provider Yaneth ledesma Encounter Details Date Type Department Care Team (Latest Contact Info) Description 11/28/2020 Travel Social History Tobacco Use Types Packs/Day [...] have Coronavirus / COVID-19? No / Unsure 11/28/2020 10:54 AM CDT documented as of this encounter [...] on filedocumented in this encounter Care Teams Retail Parts Professional Relationship Specialty Start Date End Date Joyce Luevano NP [address] [place] [address] PCP - General NURSE PRACTITIONER 01/14/20 10/26/23 Frank Toure MD [address] [place] [address] [employer]ivo Tower Erector CARDIOVASCULAR DISEASE 05/30/16 documented as of this encounter
--- OUTSIDE RECORDS SUMMARY | 2024-06-08 05:51 | XMS_ITS | Encounter Summary ---
Author Organization [facility] Address [address] [facility]. [place], [place] [address] [place] [address] Care Team Providers Care Noc Technician Name Role Phone Frank Toure MD Unavailable Joyce Luevano NP Primary Care Provider Boa ble Encounter Details Date Type Department Care Team (Latest Contact Info) Description 12/10/2020 Scan HEALTH INFO SRVCS Scanned, Documents Social [...] on filedocumented in this encounter Care Teams Noc Technician Relationship Specialty Start Date End Date Joyce Luevano NP [address] [place] [address] PCP - General NURSE PRACTITIONER 01/14/20 10/26/23 Frank Toure MD [address] [place] [address] [employer]ivo Swing Saw Operator CARDIOVASCULAR DISEASE 05/30/16 documented as of this encounter
--- OUTSIDE RECORDS SUMMARY | 2024-06-08 05:51 | XMS_ITS | Encounter Summary ---
Author Organization [facility] Address [address] [facility]. [place], [place] [address] [place] [address] Care Team Providers Care Tin Recovery Worker Name Role Phone Frank Toure MD Unavailable Joyce Luevano NP Primary Care Provider Unavaila ble Encounter Details Date Type Department Care Team (Latest Contact Info) Description 04/24/2021 Scan HEALTH INFO SRVCS Scanned, Documents Social [...] on filedocumented in this encounter Care Teams Tin Recovery Worker Relationship Specialty Start Date End Date Joyce Luevano NP [address] [place] [address] PCP - General NURSE PRACTITIONER 01/14/20 10/26/23 Frank Toure MD [address] [place] [address] [employer]ivo Hairspring Truer CARDIOVASCULAR DISEASE 05/30/16 documented as of this encounter
--- OUTSIDE RECORDS SUMMARY | 2024-06-08 05:51 | XMS_ITS | Encounter Summary ---
Author Organization [facility] Address [address] [facility] [place] [address] [place] [address] Care Team Providers Care Application Development Consultant Name Role Phone Frank Toure MD Unavailable Misael Maradiaga DO Primary Care Provider + [phone] Reason for Visit * Reason Comments Lab (SCAN) Encounter Details Date Type Department Care Team (Latest Contact Info) Description 07/18/2019 Scan MG HEALTH INFO SRVCS Scanned, Documents Lab (SCAN) [...] Name Priority Date/Time Associated Diagnosis Comments OUTSIDE PT/INR (SCAN ORDER) Routine 07/18/2019 documented in this encounter Results * OUTSIDE PT/INR (07/18/2019) 07/18/2019 us Documents Scanned SCANNING Final Result Performing Organization Address City/State/[facility] Co de Phone Number [facility] documented in this encounter Visit Diagnoses Not on filedocumented in this encounter Care Teams Application Development Consultant Relationship Specialty Start Date End Date Misael Maradiaga DO [address] [place] [address] PCP - General FAMILY PRACTICE 09/28/18 01/13/20 Frank Toure MD [address] [place] [address] [employer] Customer Solutions Specialist CARDIOVASCULAR DISEASE 05/30/16 documented as of this encounter
--- OUTSIDE RECORDS SUMMARY | 2024-06-08 05:51 | XMS_ITS | Encounter Summary ---
Author Organization [facility] Address [address] [facility]. [place], [place] [address] [place] [address] Care Team Providers Care Conveyor Attendant Name Role Phone Frank Toure MD Unavailable Joyce Luevano NP Primary Care Provider Yaneth ledesma Encounter Details Date Type Department Care Team (Latest Contact Info) Description 09/05/2020 Travel Social History Tobacco Use Types Packs/Day [...] have Coronavirus / COVID-19? No / Unsure 09/05/2020 7:50 AM CDT documented as of this encounter [...] on filedocumented in this encounter Care Teams Conveyor Attendant Relationship Specialty Start Date End Date Joyce Luevano NP [address] [place] [address] PCP - General NURSE PRACTITIONER 01/14/20 10/26/23 Frank Toure MD [address] [place] [address] [employer] Matzo Forming Machine Operator CARDIOVASCULAR DISEASE 05/30/16 documented as of this encounter
--- OUTSIDE RECORDS SUMMARY | 2024-06-08 05:51 | XMS_ITS | Encounter Summary ---
Author Organization [facility] Address [facility] [facility]. [place], [place] [address] [place] [address] Care Team Providers Care Junction Maker Name Role Phone Frank Toure MD Unavailable Joyce Luevano NP Primary Care Provider Unavaila ble Reason for Visit * Reason Comments Procedure (SCAN) Encounter Details Date Type Department Care Team (Late st Contact Info) Description 12/30/2020 Scan HEALTH INFO SRVCS Scanned, Documents Procedure (SCAN) Social History Tobacco Use Types Packs/Day [...] Procedure Name Priority Date/Time Associated Diagnosis Comments PROCEDURE GENERIC (SCAN ORDER) 12/30/2020 documented in this encounter Results * PROCEDURE GENERIC (12/30/2020) 12/30/2020 Narrative 12/30/2020 Ordered by an unspecified provider. us Documents Scanned SCANNING Final Result documented in this encounter Visit Diagnoses Not on filedocumented in this encounter Care Teams Junction Maker Relationship Specialty Start Date End Date Joyce Luevano NP [address] [place] [address] PCP - General NURSE PRACTITIONER 01/14/20 10/26/23 Frank Toure MD [address] [place] [address] [place] Heavy Mobile Equipment Operator CARDIOVASCULAR DISEASE 05/30/16 documented as of this encounter
--- OUTSIDE RECORDS SUMMARY | 2024-06-08 05:51 | XMS_ITS | Encounter Summary ---
Author Organization [facility] Address [address] [facility]. [place], [place] [address] [place] [address] Care Team Providers Care Flat Finisher Name Role Phone Frank Toure MD Unavailable Joyce Luevano NP Primary Care Provider Unavaila ble Encounter Details Date Type Department Care Team (Latest Contact Info) Description 07/13/2021 Scan HEALTH INFO SRVCS Scanned, Documents Social [...] Coronavirus/COVID-19? No / Unsure 07/30/2021 9:22 AM MAINTENANCE GROUNDSKEEPER documented as of this encounter Functional Status [...] Assessment Author Status Yes 12/04/2018 2:03 PM Aanhi Chavarria RN Active documented as of this [...] on filedocumented in this encounter Care Teams Flat Finisher Relationship Specialty Start Date End Date Joyce Luevano NP [address] [place] [address] PCP - General NURSE PRACTITIONER 01/14/20 10/26/23 Frank Toure MD [address] [place] [address] [employer] Mixing Picker Tender CARDIOVASCULAR DISEASE 05/30/16 documented as of this encounter
--- OUTSIDE RECORDS SUMMARY | 2024-06-08 05:51 | XMS_ITS | Encounter Summary ---
Author Organization [facility] Address [address] [facility]. [place], [place] [address] [place] [address] Care Team Providers Care Gis Software Engineer Name Role Phone Frank Toure MD Unavailable Joyce Luevano NP Primary Care Provider Boa ble Encounter Details Date Type Department Care Team (Latest Contact Info) Description 01/22/2020 Scan HEALTH INFO SRVCS Scanned, Documents Social [...] Date Author Status No 12/04/2018 2:03 PM Anaih Chavarria RN Active documented in this encounter Plan of Treatment Not on file documented as of this encounter Visit Diagnoses Not on filedocumented in this encounter Care Teams Gis Software Engineer Relationship Specialty Start Date End Date Joyce Luevano NP [address] [place] [address] PCP - General NURSE PRACTITIONER 01/14/20 10/26/23 Frank Toure MD [address] [place] [address] [employer]ivo Co Op CARDIOVASCULAR DISEASE 05/30/16 documented as of this encounter
--- OUTSIDE RECORDS SUMMARY | 2024-06-08 05:51 | XMS_ITS | Encounter Summary ---
Author Organization [facility] Address [address] [facility] [place], [place] [address] [place] [id number] Care Team Providers Care Cigar Machine Feeder Name Role Phone Frank Toure MD Unavailable Joyce Luevano CONVEYOR BELT REPAIRER Primary Care Provider Unavaila ble Reason for Referral * Imaging (Emergency) - Closed Specialty Diagnoses / Procedures Referred By Anabella dan Referred To Contact RADIOLOGY Procedures CT HEAD WO CON Sean Vergara MD [address] [address] Phone: tel: fax: Referral ID Status Reason Start Date Expiration Date Visits Re quested Visits Authorized [id number] Closed 02/13/2021 03/15/2022 1 1 Reason for Visit * Reason Comments Seizure- Prior History Of Encounter Details Date Type Department Care Team (Late st Contact Info) Description 02/13/2021 1:37 PM CDT - 02/13/2021 9:51 PM CDT Emergency [facility] [place] [address] Sean Vergara MD [address] [address] Seizure- Prior History Of Discharge Disposition: Home [...] have Coronavirus / COVID-19? No / Unsure 02/13/2021 1:38 PM CDT documented as of this encounter Last Filed Vital Signs Vital Sign Reading Time Taken Comments Blood Pressure 154/94 02/13/2021 5:30 PM CDT Pulse 74 02/13/2021 5:30 PM CDT Temperature 36.7 ??C (98 ??F) 02/13/2021 1:39 PM CDT Respiratory Rate 13 02/13/2021 5:30 PM CDT Oxygen Saturation 99% 02/13/2021 5:30 PM CDT Inhaled Oxygen Concentration - - Weight 65.5 kg (144 lb 6.4 oz) 02/13/2021 1:39 P M CDT Height 180.3 cm (5' 11 ) 02/13/2021 1:39 PM CDT Body Mass Index 20.14 02/13/2021 1:39 PM CDT documented in this encounter Functional [...] Chavarria RN Active documented in this encounter Discharge Instructions * Attachments The following attachments cannot be sent through Care Everywhere. * Seizures Discharge Instructions, Adult (Citizen Of [place]) documented in this encounter Medications at Time of Discharge acetaminophen 325 MG tabletIndications: Headache, unspecified headache type Take 1 tablet (325 mg total) by mouth every 8 (eight) hours as needed for Pain. 90 tablet 2 01/10/2019 ASPIRIN 81 OR Take 81 mg by mouth daily. 12/14/2020 Cholecalciferol 25 MCG (1000 UT) Chew Tab Chew 1,000 Units by mouth daily. 12/13/2020 folic acid 1 MG tablet Take 1 tablet by mouth daily. 12/14/2020 ibuprofen 600 MG tablet Take 600 mg by mouth every 8 (eight) hours as needed. levETIRAcetam 1000 MG tablet Take 2 tablets by mouth every 12 (twelve) hours. 12/14/2020 Multiple Vitamin (ONE DAILY MULTIVITAMIN ADULT) Tab Take 1 tablet by mouth daily. 08/22/2020 vitamin B-1 100 MG TabIndications:Sei zure ([facility]) Take 1 tablet (100 mg total) by mouth daily. 30 tablet 12/13/2018 vitamin D3, cholecalciferol, 1000 UNIT Tab tablet Take 1 tablet by mouth daily. 12/14/2020 amLODIPine 5 MG tabletIndications: Essential hypertension Take 1 tablet (5 mg total) by mouth daily. 30 tablet 01/14/2020 1 aspirin 81 MG chewable tabletIndications: Seizure ([facility]) Chew 1 tablet (81 mg total) by mouth daily. 90 tablet 01/05/2019 1 aspirin EC 81 MG tablet Take 81 mg by mouth daily. 08/22/2020 2 atorvastatin 40 MG tablet Take 40 mg by mouth. 08/21/2020 1 atorvastatin 40 MG tablet Take 40 mg by mouth daily. 08/21/2020 2 cefpodoxime 100 MG tablet 08/21/2020 1 Cholecalciferol 25 MCG (1000 UT) Chew Tab Chew 1,000 Units by mouth daily. 1 clonazePAM 0.5 MG tablet TK 1 T PO Q 8 H PRN. PLEASE CALL OFFICE IF SEIZURES OCCUR AFTER TAKING. 5 08/09/2018 1 divalproex EC 500 MG tablet Take 500 mg by mouth 2 (two) times daily. 12/13/2020 2 divalproex ER 250 MG 24 hr tablet 05/16/2019 2 divalproex ER 500 MG 24 hr tablet TK 2 TS PO D IN ADDITION TO 1 OF THE 250 MG TS 3 01/15/2019 1 fluticasone propionate 50 MCG/ACT nasal spray 08/03/2019 2 folic acid 1 MG tablet 01/31/2021 2 ibuprofen 600 MG tablet Take 1 tablet by mouth. 12/13/2020 2 Lacosamide 150 MG Tab Take 1 tablet in AM (instead of 200 mg tablet) for 2 weeks then 1 tablet BID (insead of 200 mg tablets) Call with questions. 11/20/2019 2 Lacosamide 200 MG Tab Take 200 mg by mouth 2 (two) times daily. 08/21/2020 1 levETIRAcetam 1000 MG tabletIndications: Seizure ([facility]) Take 2 tablets (2,000 mg total) by mouth 2 (two) times daily. 60 tablet 12/12/2018 2 levETIRAcetam 1000 MG tablet Take 2,000 mg by mouth 2 (two) times a day. 08/22/2020 1 tamsulosin (FLOMAX) 0.4 MG CapIndications:Uri nary retention Take 1 capsule (0.4 mg total) by mouth daily. 90 capsule 1 11/28/2020 2 tamsulosin 0.4 MG CapIndications:Sei zure (CMS/HCC HHS/HCC) Take 1 capsule (0.4 mg total) by mouth daily. 90 capsule 01/05/2019 1 valproic acid 250 MG capsuleIndications :Seizure (CMS/HCC HHS/HCC) Take 1 capsule (250 mg total) by mouth 2 (two) times daily. 3 capsules daily 120 capsule 01/22/2020 1 VIMPAT 50 MG TabIndications:Sei zure (CMS/HCC HHS/HCC) Take 4 tablets (200 mg total) by mouth 2 (two) times daily. 60 tablet 01/22/2020 1 Vitamin D, Cholecalciferol, 25 MCG (1000 UT) Cap 1 documented as of this encounter ED Notes * Michele Albrecht RN - 02/13/2021 9:50 PM CDT Nithya called and gave report on patient discharge, all questions asked were answered by this nurse. Michele Albrecht RN * Michele Albrecht RN - 02/13/2021 9:48 PM CDT Provider discussed today's findings with the patient/family. The patient has been given informationregarding their treatment, follow up and concerning symptoms for which they should seek urgent or emergent attention. I have expressed the the importance of seeking attention should there be any new,or worsening symptoms or persistence of their condition. Patient verbalized understanding of the discharge instructions.\ Michele Albrecht RN * KINDRA Robledo - 02/13/2021 7:35 PM CDT Contacted [facility] to [facility] transport back to nursing facility. Dispatch unable to give ETA due tocall volume. KINDRA Robledo * Sean Vergara MD - 02/13/2021 2:29 PM CDT Emergency Department Note Chief Complaint Chief Complaint Patient presents with ??? Seizure- Prior History Of History of Present Illness Mojgan Tabor is a 82-hcxx-cat-year-old male with a PMH of dysphagia, HLD, HTN, seizures, stroke presents to the ED by EMS from [facility] for evaluation of seizure that occurred early this morning. Pt reports that he fell when he seized. Denies head trauma. Pt reports his last seizure occurred approx 2 weeks ago. Pt currently c/o headache and slight nausea. History is limited d/t patient being a poor historian. Pt takes Keppra, Vimpat, and Depakote. He follows / [facility] neurology. PCP: Dr. Restrepo Medical History ALLERGIES: No Known Allergies MEDICATIONS: Prior to Admission medications Medication Sig Start Date End Date Taking? Authorizing Provider aspirin EC (ASPIRIN EC) 81 MG tablet Take 81 mg by mouth daily. 08/22/20 Yes Doc Abstract atorvastatin 40 MG tablet Take 40 mg by mouth daily. 08/21/20 Yes Doc Abstract divalproex EC 500 MG tablet Take 500 mg by mouth 2 (two) times daily. 12/13/20 12/13/21 Yes Doc Abstract Lacosamide 200 MG Tab Take 200 mg by mouth 2 (two) times daily. 08/21/20 Yes Doc Abstract levETIRAcetam 1000 MG tablet Take 2,000 mg by mouth 2 (two) times a day. 08/22/20 Yes Doc Abstract Multiple Vitamin (ONE DAILY MULTIVITAMIN ADULT) Tab Take 1 tablet by mouth daily. 08/22/20 Yes Doc Abstract acetaminophen 325 MG tablet Take 1 tablet (325 mg total) by mouth every 8 (eight) hours as needed for Pain. 01/10/19 Misael Maradiaga, DO amLODIPine 5 MG tablet Take 1 tablet (5 mg total) by mouth daily. 01/14/20 Joyce Luevano, CONVEYOR BELT REPAIRER aspirin 81 MG chewable tablet Chew 1 tablet (81 mg total) by mouth daily. 01/05/19 Misael Maradiaga, DO atorvastatin 40 MG tablet Take 40 mg by mouth. 08/21/20 Doc Abstract cefpodoxime 100 MG tablet 08/21/20 Doc Abstract Cholecalciferol 25 MCG (1000 UT) Chew Tab Chew 1,000 Units by mouth daily. Doc Abstract clonazePAM 0.5 MG tablet TK 1 T PO Q 8 H PRN. PLEASE CALL OFFICE IF SEIZURES OCCUR AFTER TAKING. 08/09/18 Doc Abstract divalproex ER 250 MG 24 hr tablet 05/16/19 Doc Abstract divalproex ER 500 MG 24 hr tablet TK 2 TS PO D IN ADDITION TO 1 OF THE 250 MG TS 01/15/19 Doc Abstract fluticasone propionate 50 MCG/ACT nasal spray 08/03/19 Doc Abstract ibuprofen 600 MG tablet Take 600 mg by mouth every 8 (eight) hours as needed. Doc Abstract Lacosamide 150 MG Tab Take 1 tablet in AM (instead of 200 mg tablet) for 2 weeks then 1 tablet BID (insead of 200 mg tablets) Call with questions. 11/20/19 Doc Abstract levETIRAcetam 1000 MG tablet Take 2 tablets (2,000 mg total) by mouth 2 (two) times daily. 12/12/18 Karmen Johnson MD tamsulosin (FLOMAX) 0.4 MG Cap Take 1 capsule (0.4 mg total) by mouth daily. 11/28/20 Daryl Barr MD tamsulosin 0.4 MG Cap Take 1 capsule (0.4 mg total) by mouth daily. 01/05/19 Misael Maradiaga, valproic acid 250 MG capsule Take 1 capsule (250 mg total) by mouth 2 (two) times daily. 3 capsulesdaily 01/22/20 Joyce P Clhoé, CONVEYOR BELT REPAIRER VIMPAT 50 MG Tab Take 4 tablets (200 mg total) by mouth 2 (two) times daily. 01/22/20 Joyce P Chloé,CONVEYOR BELT REPAIRER vitamin B-1 100 MG Tab Take 1 tablet (100 mg total) by mouth daily. 12/13/18 Karmen Johnson MD Vitamin D, Cholecalciferol, 25 MCG (1000 UT) Cap Doc Abstract PAST MEDICAL HISTORY: Past Medical History: Diagnosis Date ??? Dysphagia [...] Review of Systems Review of Systems Constitutional: Denies fever Eyes: Denies visual changes HENT: Denies sore throat or ear pain. Respiratory: Denies shortness of breath. Cardiovascular: Denies chest pain GI: See HPI Musculoskeletal: Denies back pain Skin: Denies rash. Neurologic: See HPI Endocrine: Denies hypoglycemia Lymphatic: Denies swollen glands. Psychiatric: Denies depression, SI See HPI for further details. All systems negative except as marked. Physical Exam Filed Vitals: 02/13/21 1339 02/13/21 1645 02/13/21 1730 BP: 137/84 134/77 (!) 154/94 Pulse: 62 57 74 Resp: 14 15 13 Temp: 98 ??F (36.7 ??C) TempSrc: Oral SpO2: 99% 100% 99% Weight: 65.5 kg (144 lb 6.4 oz) Height: 5' 11 (1.803 m) Physical Exam Constitutional: Well developed, Well nourished, No acute distress, Non-toxic appearance. HEENT: Normocephalic, Atraumatic, Bilateral external ears normal, EOMI, Conjunctiva normal, No discharge.Oropharynx moist, Nose normal. Respiratory: Normal breath sounds, No respiratory distress. Cardiovascular: Normal heart rate, Normal rhythm GI: Soft, No tenderness, No masses, No pulsatile masses. Neck: Normal range of motion, No tenderness, Supple, No stridor. Back: No tenderness Extremities: Intact distal pulses, No edema, No tenderness, Good range of motion in all major joints. Skin: Warm, Dry, No erythema, No rash. Neurologic: Alert & oriented x 2, Normal motor function, Normal sensory function, No focal deficits noted. Psychiatric: Affect normal, Judgment normal, Mood normal. Medical decision making: Problem list: Seizure-prior history, mild headache Ddx: Epilepsy, med noncompliance, infectious triggers, sleep deprivation, other Plan:labs, EKG, imaging Diagnostic Studies / Procedures ELECTROCARDIOGRAMS: 1607 EKG by my interpretation demonstrates sinus rhythm w/ a rate of 60. Normal [place] and QTC intervals. No ischemia. PULSE OX: SpO2: 99 % Interpretation: Normal LABORATORY STUDIES: Results for orders placed or performed during the hospital encounter of 02/13/21 CBC W/DIFF AUTOMATED Result Value Ref Range WBC 5.5 4.5 - 11.0 x10'3/uL RBC 4.26 (L) 4.70 - 6.10 x10'6/uL HGB 13.8 (L) 14.0 - 18.0 G/DL HCT 41.9 (L) 43.0 - 54.0 % MCV 98.4 (H) 80.0 - 94.0 FL MCH 32.4 (H) 27.0 - 31.0 PG MCHC 32.9 32.0 - 36.0 G/DL RDW 11.8 11.5 - 14.5 % PLT 147 130 - 400 x10'3/uL MPV 12.4 (H) 9.3 - 12.2 FL DIFFERENTIAL TYPE AUTOMATED DIFFERENTIAL NEUTROPHILS 43.8 % LYMPHOCYTES 44.4 % MONOCYTES 6.0 % EOSINOPHILS 5.1 % BASOPHILS 0.5 % IMMATURE GRANS 0.2 % ABS. NEUTROPHILS TOTAL 2.41 1.80 - 7.70 x10'3/uL ABS. LYMPHOCYTES 2.44 1.00 - 4.80 x10'3/uL ABS. MONOCYTES 0.33 0.30 - 0.82 x10'3/uL ABS. EOSINOPHILS 0.28 0.04 - 0.54 x10'3/uL ABS. BASOPHILS 0.03 0.01 - 0.08 x10'3/uL ABS. IMMATURE GRANULOCYTES 0.01 0.00 - 0.49 x10'3/uL COMPREHENSIVE METABOLIC PANEL Result Value Ref Range GLUCOSE 91 70 - 99 MG/DL BUN 15 7 - 18 MG/DL CREATININE S/P/B 0.90 0.7 - 1.3 MG/DL SODIUM 141 136 - 145 MMOL/L POTASSIUM 4.3 3.5 - 5.1 MMOL/L CHLORIDE S/P/B 107 100 - 108 MMOL/L CO2 33.2 (H) 21 - 32 MMOL/L CALCIUM 9.4 8.5 - 10.1 MG/DL BILIRUBIN TOTAL S/P/B 0.3 0.2 - 1.2 MG/DL TOTAL PROTEIN S/P/B 6.7 6.4 - 8.2 G/DL ALBUMIN S/P/B 3.2 (L) 3.4 - 5.0 G/DL AST 14 (L) 15 - 37 U/L ALT 14 (L) 16 - 60 U/L ALKALINE PHOSPHATASE S/P/B 62 50 - 136 U/L ANION GAP 0.8 (L) 5 - 15 MMOL/L BUN CREATININE RATIO 16.7 6 - 26 A/G RATIO 0.9 (L) 1.0 - 2.0 RATIO eGFR Non-Afr. Amer. >90 >90 ML/MIN/1.73 M2 eGFR Afr. Amer. >90 >90 ML/MIN/1.73 M2 ETHANOL Result Value Ref Range Alcohol <0.003 <0.003 G/DL URINALYSIS WI REFLEX TO CULTURE Specimen: URINE, CLEAN CATCH Result Value Ref Range Specimen Type URINE CLEAN CATCH COLOR (U) LIGHT YELLOW TRANSPARENCY CLEAR Specific [place] (U) 1.020 1.001 - 1.030 U PH 6.5 5.0 - 9.0 LEUKOCYTE ESTERASE NEGATIVE NEGATIVE NITRITES NEGATIVE NEGATIVE PROTEIN (U) NEGATIVE <30 MG/DL URINE GLUCOSE NORMAL NORMAL MG/DL U KETONES NEGATIVE NEGATIVE MG/DL UROBILINOGEN NORMAL NORMAL MG/DL BILIRUBIN (U) NEGATIVE NEGATIVE MG/DL BLOOD NEGATIVE NEGATIVE CULTURE & SENSITIVITY INDICATED? CULTURE IS NOT INDICATED MUCUS RARE /LPF WBC/HPF <1 <6 /HPF RBC/HPF <1 <6 /HPF SPERM (U) SPERMATOZOA PRESENT VALPROIC ACID Result Value Ref Range VALPROIC ACID 79.1 50 - 100 MCG/ML DOSE UNKNOWN LAST DOSE IMAGING STUDIES CT HEAD WO CON Result Date: 02/13/2021 IMPRESSION: 1. No definite CT evidence for acute intracranial abnormality. 2. Chronic senescent changes and old right occipital lobe infarct. 3. Partially included right maxillary sinus disease as above. Please note that CT is not sensitive for the detection of acute ischemia. Referred By: Interpreted By: Adriel Patterson MD, 02/13/2021 3:09 PM XR CHEST PORTABLE Result Date: 02/13/2021 Impression: No acute chest findings. Referred By: Interpreted By: Adriel Patterson MD, 02/13/2021 5:18 PM ED Course Labs benign. Alcohol level normal. Chest x-ray without signs of aspiration. CT head shows old chronic right infarct. No concern for infectious etiologies at this time. Depakote level is therapeutic. 1759: Discussed Pt case w/ [facility] neurology. No change in medications was recommend at this time. We'll have patient follow-up as an outpatient. Continue medications as prescribed. Medications sodium chloride 0.9% bolus infusion SOLN 1,000 mL (0 mLs Intravenous Infusion Stop Time 02/13/21 1808) Clinical Impression Seizure (CMS/HCC) (Primary) Current Discharge Medication List Disposition: Discharge Follow-Up: Joyce Luevano NP [address] [address] Call in 1 day also follow-up with [facility]y I, Maria Eugenia Recio, acting as a scribe, am personally taking down the notes in the presence of Dr.Daniel Danish Vergara,*. Take no action on this note until reviewed and authenticated by the physician. Sean Vergara MD 02/13/21 1840 * Teagan Rossi RN - 02/13/2021 1:47 PM CDT Patient presents to ED via [facility] for chief complaint of seizure that happened earlier today. Per EMS, informed that patient had a seizure this AM before the sun came up and had requested to be transported for evaluation. Upon arrival, patient A+O x 4. Patient complains of a 5/10 headache that has been present since his seizure. EMS reports he has a known seizure disorder, which he takes Keppra and clonidine for. Patient denies any other complaints at this time. * Joyce Levine RN - 02/13/2021 1:37 PM CDT Bed: 15 Expected date: Expected time: Means of arrival: Comments: [id number] room 15 documented in this encounter Plan of Treatment Not on file documented as of this encounter Procedures Procedure Name Priority Date/Time Associated Diagnosis Comments XR CHEST PORTABLE STAT 02/13/2021 5:1 5 PM CDT URINALYSIS WI REFLEX TO CULTURE STAT 02/13/2021 4:37 PM CDT KEPPRA LEVEL Routine 02/13/2021 4:36 PM CDT ECG 12-LEAD STAT 02/13/2021 4:07 PM CDT COMPREHENSIVE METABOLIC PANEL STAT 02/13/2021 3:45 PM CDT CBC W/DIFF AUTOMATED STAT 02/13/2021 3:45 PM CDT VALPROIC ACID STAT 02/13/2021 3:45 PM CDT ETHANOL STAT 02/13/2021 3:[address] HEAD WO CON STAT 02/13/2021 3:03 PM CDT documented in this encounter Results * XR CHEST PORTABLE (02/13/2021 5:15 PM CDT) Anatomical Region Laterality Modality Chest Radiographic Cynthia ging 02/13/2021 5:18 PM CDT Impressions 02/13/2021 5:19 PM CDT Impression: No acute chest findings. Referred By: ?? Interpreted By: Adriel Patterson MD, 02/13/2021 5:18 PM Narrative 02/13/2021 5:19 PM CDT Examination: Chest 1 view portable History: Aspiration DATE/TIME: 02/13/2021 2:36 PM Comparison: November 29, 2018 Technique: AP semiupright portable view of the chest was obtained. ??2 images. Findings: No pulmonary consolidation, pleural effusion or pneumothorax. ??Heart size, mediastinal contours and pulmonary vasculature are within normal limits. ??No acute osseous abnormality. Procedure Note Adriel Patterson MD - 02/13/2021 Examination: Chest 1 view portable History: Aspiration DATE/TIME: 02/13/2021 2:36 PM Comparison: November 29, 2018 Technique: AP semiupright portable view of the chest was obtained. 2images. Findings: No pulmonary consolidation, pleural effusion or pneumothorax.Heart size, mediastinal contours and pulmonary vasculature are withinnormal limits. No acute osseous abnormality. Impression: No acute chest findings. Referred By: Interpreted By: Adriel Patterson MD, 02/13/2021 5:18 PM Sean Vergara MD GENERAL IMAGING Final Result * URINALYSIS WI REFLEX TO CULTURE (02/13/2021 4:37 PM CDT) SPECIMEN TYPE URINE CLEAN CATCH 02/13/2021 4:37 PM CDT [facility] COLOR (U) LIGHT YELLOW 02/13/2021 5:22 PM CDT [facility] TRANSPARENCY CLEAR 02/13/2021 5:22 PM CDT [facility] SPECIFIC GRAVITY (U) 1.020 1.001 - 1.030 02/13/2021 5:22 PM CDT [facility] U PH 6.5 5.0 - 9.0 02/13/2021 5:22 PM CDT [facility] LEUKOCYTES (U) NEGATIVE NEGATIVE 02/13/2021 5:22 PM CDT [facility] NITRITES NEGATIVE NEGATIVE 02/13/2021 5:22 PM CDT [facility] PROTEIN (U) NEGATIVE <30 MG/DL 02/13/2021 5:22 PM CDT [facility] URINE GLUCOSE NORMAL NORMAL MG/DL 02/13/2021 5:22 PM CDT [facility] KETONES MG/DL (U) NEGATIVE NEGATIVE MG/DL 02/13/2021 5:22 PM CDT [facility] UROBILINOGEN NORMAL NORMAL MG/DL 02/13/2021 5:22 PM CDT [facility] BILIRUBIN (U) NEGATIVE NEGATIVE MG/DL 02/13/2021 5:22 PM CDT [facility] BLOOD (U) NEGATIVE NEGATIVE 02/13/2021 5:22 PM CDT [facility] CULTURE & SENSITIVITY INDICATED? CULTURE IS NOT INDICATED 02/13/2021 5:22 PM CDT [facility] MUCUS RARE /LPF 02/13/2021 5:22 PM CDT [facility] WBC/HPF <1 <6 /HPF 02/13/2021 5:22 PM CDT [facility] RBC/HPF <1 <6 /HPF 02/13/2021 5:22 PM CDT [facility] SPERM (U) SPERMATOZOA PRESENT 02/13/2021 5:22 PM CDT [facility] URINE SPECIMEN OBTAINED BY CLEAN CATCH PROCEDURE / Unknown 02/13/2021 4:37 PM CDT us Sean Vergara MD URINE ORDERABLES Lulu coley Result [facility] [address] [place] [address], * (ABNORMAL) KEPPRA LEVEL (02/13/2021 4:36 PM CDT) KEPPRA 57.9(H) 12.0 - 46.0 mcg/mL 02/17/2021 10:18 AM CDT [facility] ARNAV PORTILLO Comment: Toxic level is not well established. Interpretation should include a clinical evaluation. For additional information, please refer to http://education.[employer].Insuritas/faq/JDK253 (This link is being provided for informational/ educational purposes only.) This test was developed and its analytical performance characteristics have been determined by [facility] [place], [place]. It has not been cleared or approved by the U.S. Food and Drug Administration. This assay has been validated pursuant to the CLIA regulations and is used for clinical purposes. Test Performed by [facility], [facility], [address] [place], [place] Levon Brewer M.D., Ph.D., Director of Laboratories , CLIA [id number] 02/13/2021 4:36 PM CDT Sean Vergara MD LABORATORY Final Result Performing Organization Address City/State/[facility] Co de Phone Number [employer] [address] [place], [place] , * ECG 12 lead (02/13/2021 4:07 PM CDT) 02/13/2021 4:07 PM CDT Narrative [facility] ([facility]) RAD - 02/15/2021 4:34 PM CDT ?[facility] [place] ? [address] [place] ? Test Date: ?2021-02-13 Pat Name: ? MOJGAN TABOR ? Department: ? Room: ? ETHAN Gender: ? Male ? 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 Requested By: SEAN VERGARA Order Number: [id number] ? Reading MD: ?? Jamey Roger ? Measurements Intervals ?[place] ? Rate: ? 60 ? P: ?54 AZ: ? 155 ?QRS: ?24 QRSD: ? 94 ? T: ?63 QT: ? 380 ? QTc: ?381 ? 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: : 1960 Requested By: SEAN VERGARA Order Number: [id number] Reading MD: Jamey Roger Measurements Intervals [place] Rate: 60 P: 54 AZ: 155 QRS: 24 QRSD: 94 T: 63 QT: 380 QTc: 381 Interpretive Statements SINUS RHYTHM NONSPECIFIC ST ELEVATION Septal infarct previously noted Compared to ECG 11/29/2018 14:11:11 Minimal criteria for anterior myocardial infarct finding no longerpresent us Sean Vergara MD ECG ORDERABLES Final Result Performing Organization Address City/[facility] Co de Phone Number [facility] RAD * VALPROIC ACID (02/13/2021 3:45 PM CDT) Pathologist [facility] VALPROIC ACID 79.1 50 - 100 MCG/ML 02/13/2021 5:07 PM CDT [facility] Comment: ?THERAPEUTIC: 50-100 ?TOXIC: >150 DOSE UNKNOWN LAST DOSE 02/13/2021 5:16 PM CDT [facility] 02/13/2021 3:45 PM CDT us Sean Vergara MD LABORATORY Final Result Performing Organization Address City/[facility]/ZIP Co de Phone Number [facility] [address] [place] [address], [place] [phone] * ETHANOL (02/13/2021 3:45 PM CDT) [facility] ALCOHOL S/P/B <0.003 <0.003 G/DL 02/13/2021 5:07 PM CDT [facility] 02/13/2021 3:45 PM CDT Sean Vergara MD LABORATORY Final Result [facility] [address] [place] [address], [place] [phone] * (ABNORMAL) COMPREHENSIVE METABOLIC PANEL (02/13/2021 3:45 PM CDT) [facility] GLUCOSE 91 70 - 99 MG/DL 02/13/2021 5:07 PM CDT [facility] BUN 15 7 - 18 MG/DL 02/13/2021 5:07 PM CDT [facility] CREATININE S/P/B 0.90 0.7 - 1.3 MG/DL 02/13/2021 5:07 PM CDT [facility] SODIUM S/P/B 141 136 - 145 MMOL/L 02/13/2021 5:07 PM CDT [facility] POTASSIUM S/P/B 4.3 3.5 - 5.1 MMOL/L 02/13/2021 5:07 PM CDT [facility] CHLORIDE S/P/B 107 100 - 108 MMOL/L 02/13/2021 5:07 PM CDT [facility] CO2 33.2(H) 21 - 32 MMOL/L 02/13/2021 5:07 PM CDT [facility] CALCIUM S/P/B 9.4 8.5 - 10.1 MG/DL 02/13/2021 5:07 PM T [facility] [facility] BILIRUBIN TOTAL S/P/B 0.3 0.2 - 1.2 MG/DL 02/13/2021 5:07 PM T [facility] Comment: THIS ASSAY IS NOT RECOMMENDED FOR PATIENTS UNDERGOING TREATMENT WITH ELTROMBOPAG DUE TO THE POTENTIAL FOR FALSELY ELEVATED RESULTS. TOTAL PROTEIN S/P/B 6.7 6.4 - 8.2 G/DL 02/13/2021 5:07 PM T [facility] ALBUMIN S/P/B 3.2(L) 3.4 - 5.0 G/DL 02/13/2021 5:07 PM T [facility] AST 14(L) 15 - 37 U/L 02/13/2021 5:07 PM T [facility] ALT 14(L) 16 - 60 U/L 02/13/2021 5:07 PM T [facility] ALKALINE PHOSPHATASE S/P/B 62 50 - 136 U/L 02/13/2021 5:07 PM T [facility] ANION GAP 0.8(L) 5 - 15 MMOL/L 02/13/2021 5:07 PM T [facility] BUN CREATININE RATIO 16.7 6 - 26 02/13/2021 5:07 PM T [facility] A/G RATIO 0.9(L) 1.0 - 2.0 RATIO 02/13/2021 5:07 PM T [facility] EGFR NON-AFR. AMER. >90 >90 ML/MIN/1.7 3 M2 02/13/2021 5:07 PM T [facility] EGFR AFR. AMER. >90 >90 ML/MIN/1.7 3 M2 02/13/2021 5:07 PM CDT [facility] Comment: NOTE: eGFR is not calculated for patients <18 years of age. This is an estimated GFR (CKD EPI) and should not be used for calculating drug doses. 02/13/2021 3:45 PM CDT Sean Vergara MD LABORATORY Final Result [facility] [address] [place] [address], [place] [phone] * (ABNORMAL) CBC W/DIFF AUTOMATED (02/13/2021 3:45 PM CDT) WBC 5.5 4.5 - 11.0 x10'3/uL 02/13/2021 4:22 PM CDT [facility] RBC 4.26(L) 4.70 - 6.10 x10'6/uL 02/13/2021 4:22 PM CDT [facility] HGB 13.8(L) 14.0 - 18.0 G/DL 02/13/2021 4:22 PM CDT [facility] HCT 41.9(L) 43.0 - 54.0 % 02/13/2021 4:22 PM CDT [facility] MCV 98.4(H) 80.0 - 94.0 FL 02/13/2021 4:22 PM CDT [facility] MCH 32.4(H) 27.0 - 31.0 PG 02/13/2021 4:22 PM CDT [facility] MCHC 32.9 32.0 - 36.0 G/DL 02/13/2021 4:22 PM CDT [facility] RDW 11.8 11.5 - 14.5 % 02/13/2021 4:22 PM CDT [facility] PLT 147 130 - 400 x10'3/uL 02/13/2021 4:22 PM CDT [facility] MPV 12.4(H) 9.3 - 12.2 FL 02/13/2021 4:22 PM CDT [facility] DIFFERENTIAL TYPE AUTOMATED DIFFERENTIAL 02/13/2021 4:22 PM CDT [facility] NEUTROPHILS % 43.8 % 02/13/2021 4:22 PM CDT [facility] LYMPHOCYTES % 44.4 % 02/13/2021 4:22 PM CDT [facility] MONOCYTES % 6.0 % 02/13/2021 4:22 PM CDT [facility] EOSINOPHILS 5.1 % 02/13/2021 4:22 PM CDT [facility] BASOPHILS 0.5 % 02/13/2021 4:22 PM CDT [facility] IMMATURE GRANS % 0.2 % 02/14/20 4:22 PM CDT [facility] ABS. NEUTROPHILS TOTAL 2.41 1.80 - 7.70 x10'3/uL 02/13/2021 4:22 PM CDT [facility] ABS. LYMPHOCYTES 2.44 1.00 - 4.80 x10'3/uL 02/13/2021 4:22 PM CDT [facility] ABS. MONOCYTES 0.33 0.30 - 0.82 x10'3/uL 02/13/2021 4:22 PM CDT [facility] ABS. EOSINOPHILS 0.28 0.04 - 0.54 x10'3/uL 02/13/2021 4:22 PM CDT [facility] ABS. BASOPHILS 0.03 0.01 - 0.08 x10'3/uL 02/13/2021 4:22 PM CDT [facility] ABS. IMMATURE GRANULOCYTES 0.01 0.00 - 0.49 x10'3/uL 02/13/2021 4:22 PM CDT [facility] 02/13/2021 3:45 PM CDT Sean Vergara MD LABORATORY Final Result [facility] [address] [place] [address], * CT HEAD WO CON (02/13/2021 3:03 PM CDT) Anatomical Region Laterality Modality Head Computed Tomogra phy 02/13/2021 3:09 PM CDT Impressions 02/13/2021 3:13 PM CDT IMPRESSION: 1. ??No definite CT evidence for acute intracranial abnormality. 2. ??Chronic senescent changes and old right occipital lobe infarct. 3. ??Partially included right maxillary sinus disease as above. Please note that CT is not sensitive for the detection of acute ischemia. Referred By: ?? Interpreted By: Adriel Patterson MD, 02/13/2021 3:09 PM Narrative 02/13/2021 3:13 PM CDT EXAMINATION: CT of the head CLINICAL HISTORY: Seizure COMPARISON: 11/29/2018 TECHNIQUE: CT examination of the head without contrast ??was performed with axial images obtained. ??A radiation dose lowering technique was used for this procedure, which may include, but is not limited to, dose reduction technique, automated exposure control, the use of iterative reconstruction, ALARA (As Low As Reasonably Achievable) techniques, and Image Gently techniques. FINDINGS: There is no evidence of acute intracranial hemorrhage, abnormal extra-axial collections, intracranial mass effect, or midline shift. There is moderate to advanced volume loss with enlargement of the ventricles and extra- axial/subarachnoid spaces. ??Stable old right occipital lobe infarct. ??There are multiple bilateral foci of periventricular and deep white matter hypoattenuation, probably related to small vessel disease. Atherosclerotic calcifications of the intracranial arterial vasculature are evident. There is no definite CT evidence to suggest acute territorial infarction. The calvarium is unremarkable, without evidence of acute fracture. The maxillary sinuses are only partly included but the included right maxillary sinus appears completely opacified with the mildly hyperdense content. The visualized mastoid air cells, paranasal sinuses, and orbits are grossly unremarkable. Procedure Note Adriel Patterson MD - 02/13/2021 EXAMINATION: CT of the head CLINICAL HISTORY: Seizure COMPARISON: 11/29/2018 TECHNIQUE: CT examination of the head without contrast was performed withaxial images obtained. A radiation dose lowering technique was used forthis procedure, which may include, but is not limited to, dose reductiontechnique, automated exposure control, the use of iterativereconstruction, ALARA (As Low As Reasonably Achievable) techniques, andImage Gently techniques. FINDINGS: There is no evidence of acute intracranial hemorrhage, abnormalextra-axial collections, intracranial mass effect, or midline shift. Thereis moderate to advanced volume loss with enlargement of the ventricles andextra-axial/subarachnoid spaces. Stable old right occipital lobe infarct.There are multiple bilateral foci of periventricular and deep whitematter hypoattenuation, probably related to small vessel disease.Atherosclerotic calcifications of the intracranial arterial vasculatureare evident. There is no definite CT evidence to suggest acute territorialinfarction. The calvarium is unremarkable, without evidence of acutefracture. The maxillary sinuses are only partly included but the includedright maxillary sinus appears completely opacified with the mildlyhyperdense content. The visualized mastoid air cells, paranasal sinuses,and orbits are grossly unremarkable. IMPRESSION: 1. No definite CT evidence for acute intracranial abnormality. 2. Chronic senescent changes and old right occipital lobe infarct. 3. Partially included right maxillary sinus disease as above. Please note that CT is not sensitive for the detection of acuteischemia. Referred By: Interpreted By: Adriel Patterson MD, 02/13/2021 3:09 PM us Sean Vergara MD CT Final Result documented in this encounter Visit Diagnoses Diagnosis Seizure ([facility]/HCC HHS/HCC)- Primary Other convulsions documented in this encounter Administered Medications Inactive Administered Medications - up to 3 most recent administrations Medication Order MAR Action Action Date Dose Rate Site sodium chloride 0.9% bolus infusion SOLN 1,000 mL 1,000 mL, Intravenous, Administer over 15 Minutes, Bolus (Once), 1 dose, On Tue02/13/21 at 1430 New Bag 02/13/2021 4:32 PM CDT 1,000 mLs documented in this encounter Active and Recently Administered Medications Times are shown in CDT. Scheduled Medication Order 02/11/2021 02/12/2021 02/13/2021 sodium chloride 0.9% bolus infusion SOLN 1,000 mL (COMPLETED) 1,000 mL, Intravenous, Administer over 15 Minutes, Bolus (Once), 1 dose, On Tue02/13/21 at 1430 1632 (New Bag - Prov ider: Mary Nguyễn, RN)[id number] (Infusion Stop Time - Provider: Mary Nguyễn RN) documented in this encounter Care Teams [employer]ig[employer] Machine Feeder Relationship Specialty Start Date End Date Joyce Luevano NP [address] [place] [address] PCP - General NURSE PRACTITIONER 01/14/20 10/26/23 Frank Toure MD [address] [place] [address] [employer] Sales Representative CARDIOVASCULAR DISEASE 05/30/16 documented as of this encounter
--- OUTSIDE RECORDS SUMMARY | 2024-06-08 05:51 | XMS_ITS | Encounter Summary ---
Author Organization [facility] Address [address] [place] [address] [place] [address] Care Team Providers Care Tour Counselor Name Role Phone Frank Toure MD Unavailable Misael Maradiaga DO Primary Care Provider [phone] Reason for Visit * Reason Comments Seizures Confusion * Consultation/Treatment (Routine) - Closed Specialty Diagnoses / Procedures Referred By Anabella dan Referred To Contact Vascular Neurology / NEUROLOGY Diagnoses new patient for epeleptic and confusion Procedures NEW PATIENT Misael Maradiaga DO [address] [place] [address] Phone: tel: fax: Duarte Santacruz MD [address] [address] Phone: tel: fax: Referral ID Status Reason Start Date Expiration Date Visits Re quested Visits Authorized [id number] Closed 01/24/2019 01/25/2020 1 100 Encounter Details Date Type Department Care Team (Latest Contact Info) Description 01/24/2019 10:00 AM CDT Office Visit [facility] - [facility] [address], [address] [place] [address] Duarte Santacruz MD [address] [address] Seizures; Confusion Social History Tobacco Use Types Packs/Day Years [...] Reading Time Taken Comments Blood Pressure 132/80 01/24/2019 10:07 AM CDT Pulse 89 01/24/2019 10:07 AM CDT Temperature 36.9 ??C (98.5 ??F) 01/24/2019 1 0:07 AM CDT Respiratory Rate - - Oxygen Saturation 98% 01/24/2019 10: 07 AM CDT Inhaled Oxygen Concentration - - Weight 57.5 kg (126 lb 12.8 oz) 019 10:07 AM CDT Height 180.3 cm (5' 11 ) 01/24/2019 10: 07 AM CDT Body Mass Index 17.69 01/24/2019 10:07 AM CDT documented in this encounter Functional [...] this encounter Patient Instructions * Patient Instructions* Duarte Santacruz MD - 01/24/2019 10:00 AM CDT We will transition you off of the [...] at night. Do not change your Divalproex Make sure to keep your appointment in January with Dr. Lu at [facility]. Patient Education Patient Education Brivaracetam (briv a RA clemons cuellar) Brand Names: [place] Briviact Brand Names: Frannie Brivlera What is this drug used for? ?? It is used to treat seizures. What do I need to tell my doctor BEFORE I take this drug? ?? If you have an allergy to this drug or any part of this drug. ?? If you are allergic to any drugs like this one, any other drugs, foods, or other substances. Tell your doctor about the allergy and what signs you had, like rash; hives; itching; shortness of breath; wheezing; cough; swelling of face, lips, tongue, or throat; or any other signs. ?? If you are on dialysis, talk with your doctor. This is not a list of all drugs or health problems that interact with this drug. Tell your doctor and pharmacist about all of your drugs (prescription or OTC, natural products, vitamins) and health problems. You must check to make sure that it is safe for you to take this drug with all of your drugs and health problems. Do not start, stop, or change the dose of any drug withoutchecking with your doctor. What are some things I need to know or do while I take this drug? All products: ?? Tell all of your health care providers that you take this drug. This includes your doctors, nurses, pharmacists, and dentists. ?? Avoid driving and doing other tasks or actions that call for you to be alert until you see how this drug affects you. ?? Do not stop taking this drug all of a sudden without calling your doctor. You may have a greaterrisk of seizures. If you need to stop this drug, you will want to slowly stop it as ordered by yourdoctor. ?? This drug may cause behavior changes and mental or mood problems. Talk with the doctor. ?? If you are taking phenytoin, talk with your doctor. You may need to have your blood work checkedmore closely while you are taking it with this drug. ?? Tell your doctor if you are or plan on getting . You will need to talk about the benefits and risks of using this drug while you are . ?? Tell your doctor if you are breast-feeding. You will need to talk about any risks to your baby. Injection: ?? This drug is not approved for use in children. However, the doctor may decide the benefits of taking this drug outweigh the risks. If your child has been given this drug, ask the doctor for information about the benefits and risks. Talk with the doctor if you have questions about giving this drug to your child. What are some side effects that I need to call my doctor about right away? WARNING/CAUTION: Even though it may be rare, some people may have very bad and sometimes deadly side effects when taking a drug. Tell your doctor or get medical help right away if you have any of thefollowing signs or symptoms that may be related to a very bad side effect: ?? Signs of an allergic reaction, like rash; hives; itching; red, swollen, blistered, or peeling skin with or without fever; wheezing; tightness in the chest or throat; trouble breathing, swallowing,or talking; unusual hoarseness; or swelling of the mouth, face, lips, tongue, or throat. ?? If seizures are worse or not the same after starting this drug. ?? Hallucinations (seeing or hearing things that are not there). ?? Change in balance. ?? Trouble walking. ?? Clumsiness. ?? Not able to control eye movements. ?? Feeling very sleepy. ?? Feeling very tired or weak. ?? Very bad dizziness. ?? Patients who take this drug may be at a greater risk of having thoughts or actions of suicide. The risk may be greater in people who have had these thoughts or actions in the past. Call the doctorright away if signs like low mood (depression), nervousness, restlessness, grouchiness, panic attacks, or changes in mood or actions are new or worse. Call the doctor right away if any thoughts or actions of suicide occur. What are some other side effects of this drug? All drugs may cause side effects. However, many people have no side effects or only have minor sideeffects. Call your doctor or get medical help if any of these side effects or any other side effects bother you or do not go away: ?? Dizziness. ?? Feeling sleepy. ?? Feeling tired or weak. ?? Upset stomach or throwing up. These are not all of the side effects that may occur. If you have questions about side effects, call your doctor. Call your doctor for medical advice about side effects. You may report side effects to your national health agency. How is this drug best taken? Use this drug as ordered by your doctor. Read all information given to you. Follow all instructionsclosely. All oral products: ?? Take with or without food. ?? To gain the most benefit, do not miss doses. ?? Keep taking this drug as you have been told by your doctor or other health care provider, even if you feel well. Tablets: ?? Swallow whole with some water or other drink. ?? Do not chew, break, or crush. Liquid: ?? Measure liquid doses carefully. Use the measuring device that comes with this drug. If there is none, ask the pharmacist for a device to measure this drug. ?? Do not use a household teaspoon or tablespoon to measure this drug. Doing so could lead to the dose being too high. ?? Those who have feeding tubes may use this drug. Use as you have been told. Flush the feeding tube after this drug is given. Injection: ?? This drug is given as a shot into a vein or into a vein nonstop for a period of time. What do I do if I miss a dose? All oral products: ?? Take a missed dose as soon as you think about it. ?? If it is close to the time for your next dose, skip the missed dose and go back to your normal time. ?? Do not take 2 doses at the same time or extra doses. Injection: ?? Call your doctor to find out what to do. How do I store and/or throw out this drug? All oral products: ?? Store at room temperature. ?? Store in a dry place. Do not store in a bathroom. Liquid: ?? After opening, throw away any part not used after 5 months. ?? Do not freeze. Injection: ?? If you need to store this drug at home, talk with your doctor, nurse, or pharmacist about how tostore it. All products: ?? Keep all drugs in a safe place. Keep all drugs out of the reach of children and pets. ?? Throw away unused or drugs. Do not flush down a toilet or pour down a drain unless you are told to do so. Check with your pharmacist if you have questions about the best way to throw out drugs. There may be drug take-back programs in your area. General drug facts ?? If your symptoms or health problems do not get better or if they become worse, call your doctor. ?? Do not share your drugs with others and do not take anyone else's drugs. ?? Keep a list of all your drugs (prescription, natural products, vitamins, OTC) with you. Give this list to your doctor. ?? Talk with the doctor before starting any new drug, including prescription or OTC, natural products, or vitamins. ?? Some drugs may have another patient information leaflet. If you have any questions about this drug, please talk with your doctor, nurse, pharmacist, or other health care provider. ?? If you think there has been an overdose, call your poison control center or get medical care right away. Be ready to tell or show what was taken, how much, and when it happened. Consumer Information Use and Disclaimer This information should not be used to decide whether or not to take this medicine or any other medicine. Only the healthcare provider has the knowledge and training to decide which medicines are right for a specific patient. This information does not endorse any medicine as safe, effective, or approved for treating any patient or health condition. This is only a brief summary of general information about this medicine. It does NOT include all information about the possible uses, directions, warnings, precautions, interactions, adverse effects, or risks that may apply to this medicine. This information is not specific medical advice and does not replace information you receive from the healthcare provider. You must talk with the healthcare provider for complete information about the risksand benefits of using this medicine. Last Reviewed Date 2017-12-05 Copyright ?? 2019 [employer] and its affiliates and/or licensors. All rights reserved. documented in this encounter Progress Notes * Duarte Santacruz MD - 01/24/2019 10:00 AM CDT Neurology [place], [place] Office OFFICE VISIT NOTE CC: Seizures HPI Bi Tabor is a 58-year-old man with a longstanding history of seizures. His sister accompanieshim and gives almost all of the history. His first seizure was 25 or 26 years ago. He was on phenytoin for quite a while, though alcohol usage seemed to affect this. He suffered a stroke at age 50, and later was switched to Keppra. He continues to have seizures. Aura - Strange feeling, gets a bit nauseous. Generalized seizures - been a while, may be a year. More recently, the sister and rest of the family's concern has been Mr. Tabor's relationship with his medications and overall care. He insists that he manages his own meds. [facility]. The meds in question are not pain meds/scheduled meds, but can be his seizure meds or other medicines. Recently, she gave him ibuprofen to take, but he insisted he wanted the whole bottle. The patient at times has been very aggressive about this, and she reports rage. Past Medical History: Diagnosis Date ??? HLD (hyperlipidemia) ??? Hypertension ??? Seizures (CMS/HCC) ??? Seizures (CMS/HCC) ??? Stroke (CMS/HCC) lt side weakness Current Outpatient Medications: ??? acetaminophen 325 MG tablet, Take 1 tablet (325 mg total) by mouth every 8 (eight) hours as needed for Pain., Disp: 90 tablet, Rfl: 2 ??? amlodipine 5 MG tablet, Take 1 tablet (5 mg total) by mouth daily., Disp: 90 tablet, Rfl: 0 ??? aspirin 81 MG chewable tablet, Chew 1 tablet (81 mg total) by mouth daily., Disp: 90 tablet, Rfl: 0 ??? atorvastatin 20 MG tablet, Take 1 tablet (20 mg total) by mouth daily., Disp: 90 tablet, Rfl: 0 ??? clonazePAM 0.5 MG tablet, TK 1 T PO Q 8 H PRN. PLEASE CALL OFFICE IF SEIZURES OCCUR AFTER TAKING., Disp: , Rfl: 5 ??? divalproex ER 500 MG 24 hr tablet, TK 2 TS PO D IN ADDITION TO 1 OF THE 250 MG TS, Disp: , Rfl: 3 ??? Eslicarbazepine Acetate 800 MG Tab, Take 800 mg by mouth., Disp: , Rfl: ??? folic acid 1 MG tablet, Take 1 tablet (1 mg total) by mouth daily., Disp: 90 tablet, Rfl: 0 ??? ibuprofen 600 MG tablet, Take 600 mg by mouth every 6 (six) hours as needed for Pain., Disp: , Rfl: ??? levETIRAcetam 1000 MG tablet, Take 2 tablets (2,000 mg total) by mouth 2 (two) times daily., Disp: 60 tablet, Rfl: 0 ??? OXcarbazepine 150 MG tablet, Take 3 tablets (450 mg total) by mouth 2 (two) times daily., Disp:60 tablet, Rfl: 0 ??? sodium chloride 1 GM tablet, Take 1 g by mouth., Disp: , Rfl: ??? tamsulosin 0.4 MG Cap, Take 1 capsule (0.4 mg total) by mouth daily., Disp: 90 capsule, Rfl: 0 ??? vitamin B-1 100 MG Tab, Take 1 tablet (100 mg total) by mouth daily., Disp: 30 tablet, Rfl: 0 No Known Allergies Social History Tobacco Use ??? Smoking status: Current Every Day Smoker ??? Smokeless tobacco: Never Used Substance Use Topics ??? Alcohol use: No Review of Systems Eyes: Negative for double vision. Cardiovascular: Negative for chest pain. Gastrointestinal: Negative for abdominal pain. Skin: Negative for itching and rash. Filed Vitals: 01/24/19 1007 BP: 132/80 Pulse: 89 Temp: 98.5 ??F (36.9 ??C) SpO2: 98% Weight: 57.5 kg (126 lb 12.8 oz) Height: 5' 11 (1.803 m) Exam Awake, alert no aphasia or dysarthria VFF, EOMI Face symmetric Strength 5/5 in all 4 limbs [id number] testing symmetric, no ataxia or dysmetria No extinction to double simultaneous stimulation of the arms IMAGING No recent neuroimaging to review IMPRESSION/MEDICAL DECISION MAKING Intractable epilepsy. There is apparently some psychiatric overlay, though the patient does have epilepsy. PLAN ?? I told the patient and his sister that they are fine to establish care with me, but it would make much more sense for Mr. Tabor to be under the care of an epileptologist. They have seen Jacob Feliciano MD at [facility]. I suggested they keep any scheduled appointments with him. ?? I wonder if some of the patient's behaviors might improve if we transition his Keppra to Briviact. I did mention the side effect profile briefly to patient and sister, and wrote up a schedule to slowly transition this. documented in this encounter Plan of Treatment Not on file documented as of this encounter Visit Diagnoses Diagnosis Intractable epilepsy without status epilepticus, unspecified epilepsy type ([facility]/HCC [facility])- Primary documented in this encounter Care Teams Tour Counselor Relationship Specialty Start Date End Date Misael Maradiaga DO [address] [place] [address] PCP - General FAMILY PRACTICE 09/28/18 01/13/20 Frank oTure MD [address] [place] [address] [employer] Feeder CARDIOVASCULAR DISEASE 05/30/16 documented as of this encounter
--- OUTSIDE RECORDS SUMMARY | 2024-06-08 05:51 | XMS_ITS | Encounter Summary ---
Author Organization [facility] Address [address] [facility]. [place], [place] [address] [place] [address] Care Team Providers Care Client Relationship Consultant Name Role Phone Frank Toure MD Unavailable Joyce Luevano NP Primary Care Provider Unavaila ble Encounter Details Date Type Department Care Team (Latest Contact Info) Description 06/16/2021 Scan HEALTH INFO SRVCS Scanned, Documents Social [...] on filedocumented in this encounter Care Teams Client Relationship Consultant Relationship Specialty Start Date End Date Joyce Luevano NP [address] [place] [address] PCP - General NURSE PRACTITIONER 01/14/20 10/26/23 Frank Toure MD [address] [place] [address] Chivo Collar Shaper Operator CARDIOVASCULAR DISEASE 05/30/16 documented as of this encounter
--- OUTSIDE RECORDS SUMMARY | 2024-06-08 05:51 | XMS_ITS | Encounter Summary ---
Author Organization [facility] Address [address] [facility] [place] [address] [place] [address] Care Team Providers Care Columnist/Commentator Name Role Phone Frank Toure MD Unavailable Misael Maradiaga DO Primary Care Provider + [phone] Reason for Visit * Reason Comments Form (SCAN) Encounter Details Date Type Department Care Team (Latest Contact Info) Description 01/07/2019 Scan HEALTH INFO SRVCS Scanned, Documents Form (SCAN) Social History Tobacco Use Types Packs/Day [...] on filedocumented in this encounter Care Teams Columnist/Commentator Relationship Specialty Start Date End Date Misael Maradiaga DO [address] [place] [address] PCP - General FAMILY PRACTICE 09/28/18 01/13/20 Frank Toure MD [address] [place] [address] Chivo Telegraph Editor CARDIOVASCULAR DISEASE 05/30/16 documented as of this encounter
--- OUTSIDE RECORDS SUMMARY | 2024-06-08 05:51 | XMS_ITS | Encounter Summary ---
Author Organization [facility] Address [address] [facility] [place]. [place], [place] [address] [place] [address] Care Team Providers Care Mill Controller Name Role Phone Frank Toure MD Unavailable Joyce Luevano NP Primary Care Provider Yaneth [facility] Encounter Details Date Type Department Care Team (Latest Contact Info) Description 02/13/2021 Travel Social History Tobacco Use Types Packs/Day [...] on filedocumented in this encounter Care Teams Mill Controller Relationship Specialty Start Date End Date Joyce Luevano NP [address] [place] [address] PCP - General NURSE PRACTITIONER 01/14/20 10/26/23 Frank Toure MD [address] [place] [address] Chivo Scallop Raker CARDIOVASCULAR DISEASE 05/30/16 documented as of this encounter
--- OUTSIDE RECORDS SUMMARY | 2024-06-08 05:51 | XMS_ITS | Encounter Summary ---
Author Organization [facility] Address [address] [facility]. [place], [place] [address] [place] [address] Care Team Providers Care Accredited Farm Manager Name Role Phone Frank Toure MD Unavailable Joyce Luevano NP Primary Care Provider Boa ble Encounter Details Date Type Department Care Team (Latest Contact Info) Description 04/06/2021 Scan HEALTH INFO SRVCS Scanned, Doc Med [...] on filedocumented in this encounter Care Teams Accredited Farm Manager Relationship Specialty Start Date End Date Joyce Luevano NP [address] [place] [address] PCP - General NURSE PRACTITIONER 01/14/20 10/26/23 Frank Toure MD [address] [place] [address] Chivo Air Gun Operator CARDIOVASCULAR DISEASE 05/30/16 documented as of this encounter
--- OUTSIDE RECORDS SUMMARY | 2024-06-08 05:51 | XMS_ITS | Encounter Summary ---
Author Organization [facility] Address [address] [facility]. [place], [place] [address] [place] [address] Care Team Providers Care Clinical Medical Assistant Name Role Phone Frank Toure MD Unavailable Joyce Luevano NP Primary Care Provider Boa ble Encounter Details Date Type Department Care Team (Latest Contact Info) Description 12/13/2020 Scan HEALTH INFO SRVCS Scanned, Documents Social [...] on filedocumented in this encounter Care Teams Clinical Medical Assistant Relationship Specialty Start Date End Date Joyce Luevano NP [address] [place] [address] PCP - General NURSE PRACTITIONER 01/14/20 10/26/23 Frank Toure MD [address] [place] [address] Chivo Rn Supplemental CARDIOVASCULAR DISEASE 05/30/16 documented as of this encounter
--- OUTSIDE RECORDS SUMMARY | 2024-06-08 05:51 | XMS_ITS | Encounter Summary ---
Author Organization [facility] Address [address] [facility] [address] [place] [address] Care Team Providers Care Rn Hospice Name Role Phone Frank Toure MD Unavailable Misael Maradiaga DO Primary Care Provider + [phone] Encounter Details Date Type Department Care Team (Late st Contact Info) Description 01/24/2019 Orders Only [facility] Medical Group Multispecialty Care - [facility] [address] [facility], [address] [place] [address] Daniella Simental MA Social History Tobacco Use Types Packs/Day Years [...] filedocumented in this encounter Care Teams Rn Hospice Relationship Specialty Start Date End Date Misael Maradiaga DO [address] [place] [address] PCP - General FAMILY PRACTICE 09/28/18 01/13/20 Frank Toure MD [address] [place] [address] Chivo Foaming Machine Operator CARDIOVASCULAR DISEASE 05/30/16 documented as of this encounter
--- OUTSIDE RECORDS SUMMARY | 2024-06-08 05:51 | XMS_ITS | Encounter Summary ---
Author Organization [facility] Address [address] [facility] [place] [address] [place] [address] Care Team Providers Care Dinkey Engineer Name Role Phone Frank Toure MD Unavailable Misael Maradiaga DO Primary Care Provider + [phone] Encounter Details Date Type Department Care Team (Latest Contact Info) Description 03/01/2019 Scan HEALTH INFO SRVCS Scanned, Documents Social [...] on filedocumented in this encounter Care Teams Dinkey Engineer Relationship Specialty Start Date End Date Misael Maradiaga DO [address] [place] [address] PCP - General FAMILY PRACTICE 09/28/18 01/13/20 Frank Toure MD [address] [place] [address] Chivo Timber Treating Tank Operator CARDIOVASCULAR DISEASE 05/30/16 documented as of this encounter
--- OUTSIDE RECORDS SUMMARY | 2024-06-08 05:51 | XMS_ITS | Encounter Summary ---
Author Organization [facility] Address [address] [facility] [place] [address] [place] [address] Care Team Providers Care Weasand Trimmer Name Role Phone Frank Toure MD Unavailable Joyce Luevano NP Primary Care Provider Boa ble Encounter Details Date Type Department Care Team (Latest Contact Info) Description 01/31/2021 8:16 PM CDT - 01/31/2021 11:59 PM CDT Hospital Encounter [facility] [place] [address] Burke Restrepo MD [address] [place] [address] Discharge Disposition: Home or Self Care (Routine [...] Jernigan RN Active documented in this encounter Medications [...] Take 1 tablet by mouth daily. 12/14/2020 levETIRAcetam 1000 MG tablet Take 2 tablets by mouth every 12 (twelve) hours. 12/14/2020 Multiple Vitamin (ONE DAILY MULTIVITAMIN ADULT) Tab Take 1 tablet by mouth daily. 08/22/2020 vitamin B-1 100 MG TabIndications:Sei zure ([facility]) Take 1 tablet (100 mg total) by mouth daily. 30 tablet 12/13/2018 vitamin D3, cholecalciferol, 1000 UNIT Tab tablet Take 1 tablet by mouth daily. 12/14/2020 amLODIPine 5 MG tabletIndications: Essential hypertension Take 1 tablet (5 mg total) by mouth daily. 30 tablet 01/14/2020 aspirin 81 MG chewable tabletIndications: Seizure ([facility]/HCC HHS/HCC) Chew 1 tablet (81 mg total) by mouth daily. 90 tablet 01/05/2019 1 aspirin EC 81 MG tablet Take 81 mg by mouth daily. 08/22/2020 2 atorvastatin 40 MG tablet Take 40 mg by mouth. 08/21/2020 1 atorvastatin 40 MG tablet Take 40 mg by mouth daily. 08/21/2020 2 cefpodoxime 100 MG tablet 08/21/2020 1 clonazePAM 0.5 MG tablet TK 1 [...] 08/21/2020 1 levETIRAcetam 1000 MG tabletIndications: Seizure ([facility] HHS/HCC) Take 2 tablets (2,000 mg total) by mouth 2 (two) times daily. 60 tablet 12/12/2018 2 levETIRAcetam 1000 MG tablet Take 2,000 mg by mouth 2 (two) times a day. 08/22/2020 1 tamsulosin (FLOMAX) 0.4 MG CapIndications:Uri nary retention Take 1 capsule (0.4 mg total) by mouth daily. 90 capsule 1 11/28/2020 2 tamsulosin 0.4 MG CapIndications:Tara llanes ([facility]/HCC HHS/HCC) Take 1 capsule (0.4 mg total) by mouth daily. 90 capsule 01/05/2019 1 valproic acid 250 MG capsuleIndications :Seizure (CMS/HCC HHS/HCC) Take 1 capsule (250 mg total) by mouth 2 (two) times daily. 3 capsules daily 120 capsule 01/22/2020 1 VIMPAT 50 MG TabIndications:Tara llanes (CMS/HCC HHS/HCC) Take 4 tablets (200 mg total) by mouth 2 (two) times daily. 60 tablet 01/22/2020 1 Vitamin D, Cholecalciferol, 25 MCG (1000 UT) Cap 1 documented as of this encounter Plan of Treatment Not on file documented as of this encounter Procedures Procedure Name Priority Date/Time Associated Diagnosis Comments KEPPRA LEVEL Routine 01/31/2021 7:48 AM CDT taker down (current) use of anticoagulants Essential hypertension, malignant COMPREHENSIVE METABOLIC PANEL Routine 01/31/2021 7:48 AM CDT prison (current) use of anticoagulants Essential hypertension, malignant documented in this encounter Results * (ABNORMAL) COMPREHENSIVE METABOLIC PANEL (01/31/2021 7:48 AM CDT) GLUCOSE 80 70 - 99 MG/DL 01/31/2021 8:36 PM CDT [facility] BUN 11 7 - 18 MG/DL 01/31/2021 8:36 PM CDT [facility] CREATININE S/P/B 0.81 0.7 - 1.3 MG/DL 01/31/2021 8:36 PM CDT [facility] SODIUM S/P/B 142 136 - 145 MMOL/L 01/31/2021 8:36 PM CDT [facility] POTASSIUM S/P/B 4.1 3.5 - 5.1 MMOL/L 01/31/2021 8:36 PM CDT [facility] CHLORIDE S/P/B 110(H) 100 - 108 MMOL/L 01/31/2021 8:36 PM CDT [facility] CO2 27.7 21 - 32 MMOL/L 01/31/2021 8:36 PM CDT [facility] CALCIUM S/P/B 9.5 8.5 - 10.1 MG/DL 01/31/2021 8:36 PM CDT [facility] BILIRUBIN TOTAL S/P/B 0.4 0.2 - 1.2 MG/DL 01/31/2021 8:36 PM CDT [facility] Comment: THIS ASSAY IS NOT RECOMMENDED FOR PATIENTS UNDERGOING TREATMENT WITH ELTROMBOPAG DUE TO THE POTENTIAL FOR FALSELY ELEVATED RESULTS. TOTAL PROTEIN S/P/B 7.1 6.4 - 8.2 G/DL 01/31/2021 8:36 PM CDT [facility] ALBUMIN S/P/B 4.0 3.4 - 5.0 G/DL 01/31/2021 8:36 PM CDT [facility] AST 14(L) 15 - 37 U/L 01/31/2021 8:36 PM CDT [facility] ALT 16 16 - 60 U/L 01/31/2021 8:36 PM T [facility] ALKALINE PHOSPHATASE S/P/B 69 50 - 136 U/L 01/31/2021 8:36 PM CDT [facility] ANION GAP 4.3(L) 5 - 15 MMOL/L 01/31/2021 8:36 PM CDT [facility] BUN CREATININE RATIO 13.5 6 - 26 01/31/2021 8:36 PM CDT [facility] A/G RATIO 1.3 1.0 - 2.0 RATIO 01/31/2021 8:36 PM CDT [facility] EGFR NON-AFR. AMER. >90 >90 ML/MIN/1.7 3 M2 01/31/2021 8:36 PM CDT [facility] EGFR AFR. AMER. >90 >90 ML/MIN/1.7 3 M2 01/31/2021 8:36 PM CDT [facility] Comment: NOTE: eGFR is not calculated for patients <18 years of age. This is an estimated GFR (CKD EPI) and should not be used for calculating drug doses. 01/31/2021 7:48 AM CDT Burke Restrepo MD LABORATORY Final Result [facility] [address] [place] [address], * (ABNORMAL) KEPPRA LEVEL (01/31/2021 7:48 AM CDT) KEPPRA 48.5(H) 12.0 - 46.0 mcg/mL 02/05/2021 10:00 AM CDT [facility] Comment: Toxic level is not well established. Interpretation should include a clinical evaluation. For additional information, please refer to http://education.TeensSuccess.NeuroSigma/faq/JLP396 (This link is being provided for informational/ educational purposes only.) This test was developed and its analytical performance characteristics have been determined by [employer] [place], [place]. It has not been cleared or approved by the U.S. Food and Drug Administration. This assay has been validated pursuant to the CLIA regulations and is used for clinical purposes. Test Performed by [employer] [employer] [place], [address] [place] [address] Levon Brewer M.D., Ph.D., Director of Laboratories , CLIA [id number] 01/31/2021 7:48 AM CDT Burke Restrepo MD LABORATORY Final Result [facility] [address] [place], [place] , documented in this encounter Visit Diagnoses Diagnosis prison (current) use of anticoagulants Long-term (current) use of anticoagulants Essential hypertension, malignant documented in this encounter Care Teams Weasand Trimmer Relationship Specialty Start Date End Date Joyce Luevano NP [address] [place] [address] PCP - General NURSE PRACTITIONER 01/14/20 10/26/23 Frank Toure MD [address] [place] [address] [place] Water Quality Assistant CARDIOVASCULAR DISEASE 05/30/16 documented as of this encounter
--- OUTSIDE RECORDS SUMMARY | 2024-06-08 05:51 | XMS_ITS | Encounter Summary ---
Author Organization [facility] Address [address] [facility] [place] [address] [place] [address] Care Team Providers Care Process Supervisor Name Role Phone Frank Toure MD Unavailable Misael Maradiaga DO Primary Care Provider + [phone] Encounter Details Date Type Department Care Team (Late st Contact Info) Description 03/06/2019 Orders Only [facility] Medical Group Multispecialty Care - [facility] [address] [facility], [address] [place] [address] Daniella Simental MA Social History [...] on filedocumented in this encounter Care Teams Process Supervisor Relationship Specialty Start Date End Date Misael Maraidaga DO [address] [place] [address] PCP - General FAMILY PRACTICE 09/28/18 01/13/20 Frank Toure MD [address] [place] [address] Chivo Collections Clerk CARDIOVASCULAR DISEASE 05/30/16 documented as of this encounter
--- OUTSIDE RECORDS SUMMARY | 2024-06-08 05:51 | XMS_ITS | Encounter Summary ---
Author Organization [facility] Address [facility] [facility]. [place], [place] [address] [place] [address] Care Team Providers Care Automation Qa Analyst Name Role Phone Frank Toure MD Unavailable Joyce Luevano PRINTING MECHANIST Primary Care Provider Unavaila ble Reason for Visit * Reason Onset Date Comments Information 12/11/2020 Encounter Details Date Type Department Care Team (Late st Contact Info) Description 12/11/2020 Telephone [facility] Medical Group Family Medicine - [address] [address] Joyce Luevano NP Information Social [...] Progress Notes * Bautista Whitman MA - 12/11/2020 2:04 PM CDT FYI. * Sumi Grace - 12/11/2020 1:47 PM CDT Adriane called to let us know that Bi is in [facility] having seizures because his skilled nursing messed his meds up again. documented in this encounter Plan of Treatment Not on file documented as of this encounter Visit Diagnoses Not on filedocumented in this encounter Care Teams Automation Qa Analyst Relationship Specialty Start Date End Date Joyce Luevano NP [address] [place] [address] PCP - General NURSE PRACTITIONER 01/14/20 10/26/23 Frank Toure MD [address] [place] [address] [employer]ivo Retail Equipment Associate CARDIOVASCULAR DISEASE 05/30/16 documented as of this encounter
--- OUTSIDE RECORDS SUMMARY | 2024-06-08 05:51 | XMS_ITS | Encounter Summary ---
Author Organization [facility] Address [facility]. [place], [place] [address] [place] [address] Care Team Providers Care Pipe Fitter Name Role Phone Frank Toure MD Unavailable Joyce Luevano NP Primary Care Provider Unavaila ble Reason for Referral * Occupational Therapy (Routine) - Closed Specialty Diagnoses / Procedures Referred By Anabella dan Referred To Contact Occupational Therapy Diagnoses Gait abnormality Joyce Luevano NP [address] [place] [phone] Referral ID Status Reason Start Date Expiration Date V isits Requested Visits Authorized [id number] Closed Specialty Services 01/22/2020 02/20/2021 99 99 * Physical Medicine (Routine) - Closed Specialty Diagnoses / Procedures Referred By Anabella dan Referred To Contact PHYSICAL THERAPY Diagnoses Gait abnormality Joyce Luevano NP [address] [phone] Referral ID Status Reason Start Date Expiration Date V isits Requested Visits Authorized [id number] Closed Physical Therapy 01/22/2020 02/20/2021 99 99 Reason for Visit * Reason Comments Annual pt here for yearly c heck up Encounter Details Date Type Department Care Team (Late st Contact Info) Description 01/22/2020 10:00 AM CDT Office Visit [facility] Family [facility] - [address] [address] Joyce Luevano NP Annual (pt here for yearly check up) Social History Tobacco Use Types Packs/Day Years [...] Sign Reading Time Taken Comments Blood Pressure 120/72 01/22/2020 10:51 AM CDT Pulse 79 01/22/2020 10:51 AM CDT Temperature 36.2 ??C (97.2 ??F) 01/22/2020 10:51 AM C DT Respiratory Rate 18 01/22/2020 10:51 AM CDT Oxygen Saturation 97% 01/22/2020 10:51 AM CDT Inhaled Oxygen Concentration - - Weight 54.9 kg (121 lb) 01/22/2020 10:51 AM CDT Height 180.3 cm (5' 11 ) 01/22/2020 10:51 AM CDT Body Mass Index 16.88 01/22/2020 10:51 AM CDT documented in this encounter Functional [...] this encounter Patient Instructions * Patient Instructions* Joyce Luevano NP - 01/22/2020 10:00 AM CDT 1. Continue all medications as ordered 2. Fasting labs ordered 3. Follow up with specialist as scheduled 4. PT/OT orders placed 5. Blood pressure checks monthly at [facility] 6. Follow up in office in 6 months; sooner if needed documented in this encounter Progress Notes * Joyce Luevano NP - 01/22/2020 10:00 AM CDT Images from the original note were not included. OFFICE FOLLOW UP NOTE Encounter Date: 01/22/2020 Chief Complaint: 59-year-old male presents for Annual (pt here for yearly check up) . Presents today for transfer of care and annual visit with his sister Adriane Patient currently resides at [facility]. Sister is trying to get him into an assisted living facility HTN BP at goal at this visit 120/72 Patient is taking Amlodipine Hyperlipidemia On Atorvastatin. Patient thinks he is not taking the medication but [facility]. Seizures Still seeing neurologist Dr. Raymundo at [facility] Last April he had continuous seizures; he ended up at [facility] for greater than a week where his medications were managed and he was stabilized. Seizures started in 1991 after a bad fall. 5 years ago he switched from Dilantin. Sister reports Dilantin does not work for him anymore. Patient is currently on Keppra, Vimpat, and Valproic acid Patient oriented to person, date, and time. Patient reports he walks around. Patient's sister states he does not walk around. Sister states he used to walk with a walker. Patient attempted to walk in room and has limited mobility and gait is unstable. Sister is requesting physical therapy for patient Reports history of stroke around 5 years ago. Sister reports he had a heat stroke in December. Sister reports he had surgery on his toe at [facility]. Sees Dr. Hurley for vascular Patient reports he has a good appetite if he likes the food Patient reports he does not have a BM everyday. Patient denies having constipation Last colonoscopy was 10/2016 Does not smoke Does not drink alcohol anymore Review of Systems Constitutional: Negative for chills [...] type Past Medical History: Diagnosis Date ??? HLD [...] by mouth daily. 30 tablet 0 ??? aspirin 81 MG chewable tablet Chew 1 tablet (81 mg total) by mouth daily. 90 tablet 0 ??? atorvastatin 20 MG tablet Take 1 tablet (20 mg total) by mouth daily. 90 tablet 0 ??? clonazePAM 0.5 MG tablet TK 1 T PO Q 8 H PRN. PLEASE CALL OFFICE IF SEIZURES OCCUR AFTER TAKING. 5 ??? divalproex ER 250 MG 24 hr tablet ??? divalproex ER 500 MG 24 hr tablet TK 2 TS PO D IN ADDITION TO 1 OF THE 250 MG TS 3 ??? fluticasone propionate 50 MCG/ACT nasal spray ??? Lacosamide 150 MG Tab Take 1 tablet in AM (instead of 200 mg tablet) for 2 weeks then 1 tablet BID (insead of 200 mg tablets) Call with questions. ??? levETIRAcetam 1000 MG tablet Take 2 tablets (2,000 mg total) by mouth 2 (two) times daily. 60 tablet 0 ??? tamsulosin 0.4 MG Cap Take 1 capsule (0.4 mg total) by mouth daily. 90 capsule 0 ??? valproic acid 250 MG capsule Take 1 capsule (250 mg total) by mouth 2 (two) times daily. 3 capsules daily 120 capsule 0 ??? VIMPAT 50 MG Tab Take 4 tablets (200 mg total) by mouth 2 (two) times daily. 60 tablet 0 ??? vitamin B-1 100 MG Tab Take 1 tablet (100 mg total) by mouth daily. 30 tablet 0 ??? Vitamin D, Cholecalciferol, 25 MCG (1000 UT) Cap No current facility-administered medications for this visit. No Known Allergies Objective: Filed Vitals: 01/22/20 1051 BP: 120/72 Pulse: 79 Resp: 18 Temp: 97.2 ??F (36.2 ??C) TempSrc: Axillary SpO2: 97% Weight: 54.9 kg (121 lb) Height: 5' 11 (1.803 m) Body mass index is 16.88 kg/m??. No LMP for male patient. Physical Exam Constitutional: He is oriented to person, place, and time and well-developed, well-nourished, and in no distress. Cardiovascular: Normal rate, regular rhythm and normal heart sounds. Pulses: Dorsalis pedis pulses are 1+ on the left side. Pulmonary/Chest: Effort normal and breath sounds normal. Abdominal: Soft. There is no tenderness. Neurological: He is alert and oriented to person, place, and time. He displays normal stance. Coordination and gait normal. Abnormal gait and unsteady Bilateral extremities strong Skin: Skin is warm and dry. Left middle toe slightly darker than others This is followed by vascular and has improved Psychiatric: He exhibits abnormal recent memory. Assessment: Encounter Diagnose(s) ICD-10-CM ICD-9-CM 1. Essential hypertension I10 401.9 2. Seizure (CMS/HCC) R56.9 780.39 valproic acid 250 MG capsule VIMPAT 50 MG Tab 3. Health care maintenance Z00.00 V70.0 COMPREHENSIVE METABOLIC PANEL TSH W/REFLEX LIPID PANEL VITAMIN D, 25 OH PSA, TOTAL AND FREE COMPREHENSIVE METABOLIC PANEL TSH W/REFLEX LIPID PANEL VITAMIN D, 25 OH PSA, TOTAL AND FREE 4. Screening for prostate cancer Z12.5 V76.44 5. Gait abnormality R26.9 781.2 AMB REFERRAL TO PHYSICAL THERAPY AMB REFERRAL TO OCCUPATIONAL THERAPY Plan: Bi was seen today for annual. Diagnoses and all orders for this visit: Essential hypertension Seizure (CMS/HCC) - valproic acid 250 MG capsule; Take 1 capsule (250 mg total) by mouth 2 (two) times daily. 3 capsules daily - VIMPAT 50 MG Tab; Take 4 tablets (200 mg total) by mouth 2 (two) times daily. Health care maintenance - COMPREHENSIVE METABOLIC PANEL; Future - TSH W/REFLEX; Future - LIPID PANEL; Future - VITAMIN D, 25 OH; Future - PSA, TOTAL AND FREE; Future - COMPREHENSIVE METABOLIC PANEL - TSH W/REFLEX - LIPID PANEL - VITAMIN D, 25 OH - PSA, TOTAL AND FREE Screening for prostate cancer Gait abnormality - AMB REFERRAL TO PHYSICAL THERAPY - AMB REFERRAL TO OCCUPATIONAL THERAPY Continue all medications as ordered. Discussed with patient to continue going to specialist; neurologist and vascular Discussed with patient and sister to keep the skin moisturized d/t peripheral artery disease Will order lab work. Sister states patient will get his labs drawn at long term or at [facility] Will order PT/OT for patient for gait abnormalities. F/U in 6 months sooner if needed Discussed plan of care with patient. Patient verbalized understanding. LYNN [place]-ANGEL Cosigned by Marielena Smallwood MD at 01/23/2020 9:18 AM CDT documented in this encounter Plan of Treatment Scheduled Orders Name Type Priority Associated Diagnoses Orde r Schedule COMPREHENSIVE METABOLIC PANEL Lab Routine Health Care Maintenance Expected: 01/22/2020, Expires: 01/21/2021 TSH W/REFLEX Lab Routine Health Care Maintenance Expected: 01/22/2020, Expires: 01/21/2021 LIPID PANEL Lab Routine Health Care Maintenance Expected: 01/22/2020, Expires: 01/21/2021 VITAMIN D, 25 OH Lab Routine Health Care Maintenance Expected: 01/22/2020, Expires: 01/21/2021 PSA, TOTAL AND FREE Lab Routine Health Care Maintenance Expected: 01/22/2020, Expires: 01/21/2021 Scheduled Referrals Name Type Priority Associated Diagnoses Orde r Schedule Ambulatory referral to Physical Therapy Referral Routine Gait abnormality Ordered: 01/22/2020 Ambulatory referral to Occupational Therapy Referral Routine Gait abnormality Ordered: 01/22/2020 documented as of this encounter Visit Diagnoses Diagnosis Essential hypertension- Primary Unspecified essential hypertension Seizure ([facility]/HCC [facility]) Other convulsions Health care maintenance Unspecified general medical examination Screening for prostate cancer Special screening for malignant neoplasm of prostate Gait abnormality Abnormality of gait documented in this encounter Care Teams Pipe Fitter Relationship Specialty Start Date End Date Joyce Luevano NP [address] [place] [address] PCP - General NURSE PRACTITIONER 01/14/20 10/26/23 Frank Toure MD [address] [place] [address] [place] Licensed Social Worker CARDIOVASCULAR DISEASE 05/30/16 documented as of this encounter
--- OUTSIDE RECORDS SUMMARY | 2024-06-08 05:51 | XMS_ITS | Encounter Summary ---
Author Organization [facility] Address [address] [facility] [place] [address] [place] [address] Care Team Providers Care Astronomy Department Chair Name Role Phone Frank Toure MD Unavailable Josse Arboleda DO Primary Care Provider [phone] Reason for Visit * Reason Comments ER F/U Went to [facility] for seizures. Encounter Details Date Type Department Care Team (Late st Contact Info) Description 01/30/2019 2:40 PM CDT Office Visit [facility] Family Medicine - [address] [address] Josse Arboleda DO [address] [place] [phone] ER F/U (Went to [facility] for seizures.) Social History Tobacco Use Types Packs/Day Years [...] Sign Reading Time Taken Comments Blood Pressure 124/80 01/30/2019 2:37 PM CDT Pulse 96 01/30/2019 2:37 PM CDT Temperature 36.6 ??C (97.9 ??F) 01/30/2019 2:37 PM CD T Respiratory Rate 14 01/30/2019 2:37 PM CDT Oxygen Saturation 100% 01/30/2019 2:37 PM CDT Inhaled Oxygen Concentration - - Weight - - Height - - Body Mass Index - - documented in this encounter Functional Status * [...] encounter Progress Notes * Josse Arboleda, - 01/30/2019 2:40 PM CDT Images from the original note were not included. OFFICE FOLLOW UP NOTE Encounter Date: 01/30/2019 Chief Complaint: 59-year-old male presents for ER F/U (Went to [facility] for seizures.) . HPI Since last visit, family has been taking care of his meds And have been administering his meds for him However, by evening time, he was telling his family he wanted to take care of own meds and that he can manage it himself Family states he would get argumentative with them, but was still taking his meds He subsequently had another breakthrough SZ and went to [facility] Since that happened, he was sent to [facility], an assisted living home for short term. He states he is happy there, and they take care of all his meds Review of Systems Constitutional: Negative for chills [...] history unknown: Yes History Smoking Status ??? Former Smoker ??? [...] needed for Pain. 90 tablet 2 ??? amlodipine 5 MG tablet Take 1 tablet (5 mg total) by mouth daily. 90 tablet 0 ??? aspirin 81 MG chewable tablet Chew 1 tablet (81 mg total) by mouth daily. 90 tablet 0 ??? atorvastatin 20 MG tablet Take 1 tablet (20 mg total) by mouth daily. 90 tablet 0 ??? Brivaracetam (BRIVIACT) 75 MG Tab Take 75 mg by mouth daily. Start taking one by mouth daily, increase as directed to two by mouth twice a day 120 tablet 3 ??? clonazePAM 0.5 MG tablet TK 1 T PO Q 8 H PRN. PLEASE CALL OFFICE IF SEIZURES OCCUR AFTER TAKING. 5 ??? divalproex ER 500 MG 24 hr tablet TK 2 TS PO D IN ADDITION TO 1 OF THE 250 MG TS 3 ??? Eslicarbazepine Acetate 800 MG Tab Take 800 mg by mouth. ??? folic acid 1 MG tablet Take 1 tablet (1 mg total) by mouth daily. 90 tablet 0 ??? ibuprofen 600 MG tablet Take 600 mg by mouth every 6 (six) hours as needed for Pain. ??? levETIRAcetam 1000 MG tablet Take 2 tablets (2,000 mg total) by mouth 2 (two) times daily. 60 tablet 0 ??? tamsulosin 0.4 MG Cap Take 1 capsule (0.4 mg total) by mouth daily. 90 capsule 0 ??? vitamin B-1 100 MG Tab Take 1 tablet (100 mg total) by mouth daily. 30 tablet 0 ??? OXcarbazepine 150 MG tablet Take 3 tablets (450 mg total) by mouth 2 (two) times daily. 60 tablet 0 ??? sodium chloride 1 GM tablet Take 1 g by mouth. No current facility-administered medications for this visit. No Known Allergies Objective: Filed Vitals: 01/30/19 1437 BP: 124/80 Pulse: 96 Resp: 14 Temp: 97.9 ??F (36.6 ??C) TempSrc: Temporal SpO2: 100% Physical Exam Constitutional: He is oriented to person, place, and time and well-developed, well-nourished, and in no distress. HENT: Head: Normocephalic and atraumatic. Eyes: Conjunctivae and EOM are normal. Right [...] Vitals reviewed. Assessment / Plan: 1. Seizure (CMS/HCC) Now on keppra And has been the same dose Plan is to keep observation and will f/u with his neurologist next month Family is happy with his current living situation F/u prn JOSSE ARBOLEDA DO documented in this encounter Plan of Treatment Not on file documented as of this encounter Visit Diagnoses Diagnosis Seizure (CMS/HCC HHS/HCC)- Primary Other convulsions documented in this encounter Care Teams Astronomy Department Chair Relationship Specialty Start Date End Date Josse Arboleda DO [address] [place] [address] PCP - General FAMILY PRACTICE 09/28/18 01/13/20 Frank Toure MD [address] [place] [address] [place] Bench Assembler Operator CARDIOVASCULAR DISEASE 05/30/16 documented as of this encounter
--- OUTSIDE RECORDS SUMMARY | 2024-06-08 05:51 | XMS_ITS | Encounter Summary ---
Author Organization [facility] Address [address] [place] [address] [place] [address] Care Team Providers Care Sr. Manager Name Role Phone Frank Toure MD Unavailable Misael Maradiaga DO Primary Care Provider + [phone] Encounter Details Date Type Department Care Team (Latest Contact Info) Description 06/13/2019 Scan HEALTH INFO SRVCS Scanned, Documents Social [...] on filedocumented in this encounter Care Teams Sr. Manager Relationship Specialty Start Date End Date Misael Maradiaga DO [address] [place] [address] PCP - General FAMILY PRACTICE 09/28/18 01/13/20 Frank Toure MD [address] [place] [address] [employer] Chucking Machine Set Up Operator CARDIOVASCULAR DISEASE 05/30/16 documented as of this encounter
--- OUTSIDE RECORDS SUMMARY | 2024-06-08 05:51 | XMS_ITS | Encounter Summary ---
Author Organization [facility] Address [address] [facility]. [place], [place] [address] [place] [address] Care Team Providers Care Teacher Assistant Name Role Phone Frank Toure MD Unavailable Joyce Luevano NP Primary Care Provider [facility] Encounter Details Date Type Department Care Team (Latest Contact Info) Description 01/22/2020 Travel Social History Tobacco Use Types Packs/Day [...] on filedocumented in this encounter Care Teams Teacher Assistant Relationship Specialty Start Date End Date Joyce Luevano NP [address] [place] [address] PCP - General NURSE PRACTITIONER 01/14/20 10/26/23 Frank Toure MD [address] [place] [address] [employer] Clinical Nurse CARDIOVASCULAR DISEASE 05/30/16 documented as of this encounter
--- OUTSIDE RECORDS SUMMARY | 2024-06-08 05:51 | XMS_ITS | Encounter Summary ---
Author Organization [facility] Address [address] [facility] [address] [place] [address] Care Team Providers Care Barrel Rifler Operator Name Role Phone Frank Toure MD Unavailable Misael Maradiaga DO Primary Care Provider + [phone] Encounter Details Date Type Department Care Team (Latest Contact Info) Description 01/14/2019 Scan HEALTH INFO SRVCS Scanned, Documents Social [...] on filedocumented in this encounter Care Teams Barrel Rifler Operator Relationship Specialty Start Date End Date Misael Maradiaga DO [address] [place] [address] PCP - General FAMILY PRACTICE 09/28/18 01/13/20 Frank Toure MD [address] [place] [address] [employer] Exceptional Children Teacher Assistant CARDIOVASCULAR DISEASE 05/30/16 documented as of this encounter
--- OUTSIDE RECORDS SUMMARY | 2024-06-08 05:51 | XMS_ITS | Encounter Summary ---
Author Organization [facility] Address [address] [facility]. [place], [place] [address] [place] [address] Care Team Providers Care Mandarin Speaking Nanny Name Role Phone Frank Toure MD Unavailable Joyce Luevano NP Primary Care Provider Unavaila ble Encounter Details Date Type Department Care Team (Latest Contact Info) Description 07/10/2021 Scan HEALTH INFO SRVCS Scanned, Documents Social [...] Coronavirus/COVID-19? No / Unsure 07/30/2021 9:22 AM CENSUS ENUMERATOR documented as of this encounter Functional Status [...] on filedocumented in this encounter Care Teams Mandarin Speaking Nanny Relationship Specialty Start Date End Date Joyce Luevano NP [address] [place] [address] PCP - General NURSE PRACTITIONER 01/14/20 10/26/23 Frank Toure MD [address] [place] [address] [employer] Field Contractor CARDIOVASCULAR DISEASE 05/30/16 documented as of this encounter
--- OUTSIDE RECORDS SUMMARY | 2024-06-08 05:51 | XMS_ITS | Encounter Summary ---
Author Organization [facility] Address [address] [facility] [place] [address] [place] [address] Care Team Providers Care Hotel Assistant General Manager Name Role Phone Frank Toure MD Unavailable Misael Maradiaga DO Primary Care Provider + [phone] Encounter Details Date Type Department Care Team (Latest Contact Info) Description 06/08/2019 Scan HEALTH INFO SRVCS Scanned, Documents Social [...] Procedure Name Priority Date/Time Associated Diagnosis Comments USV ART DUPLEX+LUIZ LOW MILDRED STAT 06/11/2019 10:30 AM PEDIATRIC OCCUPATIONAL THERAPIST Cyanosis of skin documented in this encounter Results * USV ART DUPLEX+LUIZ LOW MILDRED (06/11/2019 10:30 AM PEDIATRIC OCCUPATIONAL THERAPIST) Anatomical Region Laterality Modality Extremity Vascular Ultraso und Misael Maradiaga DO VASC Final Result documented in this encounter Visit Diagnoses Diagnosis Cyanosis of skin documented in this encounter Care Teams Hotel Assistant General Manager Relationship Specialty Start Date End Date Misael Maradiaga DO [address] [place] [address] PCP - General FAMILY PRACTICE 09/28/18 01/13/20 Frank Toure MD [address] [place] [address] [place] Front Office Clerk CARDIOVASCULAR DISEASE 05/30/16 documented as of this encounter
--- OUTSIDE RECORDS SUMMARY | 2024-06-08 05:51 | XMS_ITS | Encounter Summary ---
Author Organization [facility] Address [address] [facility] [place] [address] [place] [address] Care Team Providers Care Title One Reading Teacher Name Role Phone Frank Toure MD Unavailable Misael Maradiaga DO Primary Care Provider + [phone] Encounter Details Date Type Department Care Team [...] on filedocumented in this encounter Care Teams Title One Reading Teacher Relationship Specialty Start Date End Date Misael Maradiaga DO [address] [place] [address] PCP - General FAMILY PRACTICE 09/28/18 01/13/20 Frank Toure MD [address] [place] [address] [place] Gate Person CARDIOVASCULAR DISEASE 05/30/16 documented as of this encounter
--- OUTSIDE RECORDS SUMMARY | 2024-06-08 05:51 | XMS_ITS | Encounter Summary ---
Author Organization [facility] Address [address] [facility]. [place], [place] [address] [place] [address] Care Team Providers Care Model And Mold Maker Plaster Name Role Phone Frank Toure MD Unavailable Joyce Luevano NP Primary Care Provider Boa ble Encounter Details Date Type Department Care Team (Latest Contact Info) Description 01/31/2020 Scan HEALTH INFO SRVCS Scanned, Documents Social [...] on filedocumented in this encounter Care Teams Model And Mold Maker Plaster Relationship Specialty Start Date End Date Joyce Luevano NP [address] [place] [address] PCP - General NURSE PRACTITIONER 01/14/20 10/26/23 Frank Toure MD [address] [place] [address] [employer] Survey Instrument Operator CARDIOVASCULAR DISEASE 05/30/16 documented as of this encounter
--- OUTSIDE RECORDS SUMMARY | 2024-06-08 05:51 | XMS_ITS | Encounter Summary ---
Author Organization [facility] Address [address] [facility]. [place], [place] [address] [place] [address] Care Team Providers Care Medical Claims Assistant Name Role Phone Frank Toure MD Unavailable Joyce Luevano NP Primary Care Provider Unavaila ble Encounter Details Date Type Department Care Team (Latest Contact Info) Description 08/11/2020 Scan HEALTH INFO SRVCS Scanned, Documents Social [...] on filedocumented in this encounter Care Teams Medical Claims Assistant Relationship Specialty Start Date End Date Joyce Luevano NP [address] [place] [address] PCP - General NURSE PRACTITIONER 01/14/20 10/26/23 Frank Toure MD [address] [place] [address] [place] Equipment Engineering Technician CARDIOVASCULAR DISEASE 05/30/16 documented as of this encounter
--- OUTSIDE RECORDS SUMMARY | 2024-06-08 05:51 | XMS_ITS | Encounter Summary ---
Author Organization [facility] Address [address] [facility]. [place], [place] [address] [place] [address] Care Team Providers Care Director Of Strategic Marketing Name Role Phone Frank Toure MD Unavailable Chas Luevano DIRECTOR OF CLOUD SERVICES Primary Care Provider Unavaila ble Reason for Referral * Physical Medicine (Routine) - Closed Specialty Diagnoses / Procedures Referred By Anabella dan Referred To Contact PHYSICAL THERAPY Diagnoses Gait abnormality Cerebrovascular accident (CVA) due to thrombosis of right posterior cerebral artery (CMS/HCC HHS/HCC) Chas Luevano NP [address] [place] [phone] Phone: tel: fax: Referral ID Status Reason Start Date Expiration Date V isits Requested Visits Authorized [id number] Closed Physical Therapy 04/21/2020 05/21/2021 99 99 STRIPPER * Occupational Therapy (Routine) - Closed Specialty Diagnoses / Procedures Referred By Anabella dan Referred To Contact Occupational Therapy Diagnoses Gait abnormality Cerebrovascular accident (CVA) due to thrombosis of right posterior cerebral artery (CMS/HCC HHS/HCC) Chas Luevano NP [address] [address] Phone: tel: fax: Referral ID Status Reason Start Date Expiration Date V isits Requested Visits Authorized [id number] Closed Specialty Services 04/21/2020 05/21/2021 99 99 STRIPPER Encounter Details Date Type Department Care Team (Late st Contact Info) Description 04/21/2020 Orders Only [facility] [address] [address] Chas Luevano NP Social History Tobacco Use Types Packs/Day Years [...] Progress Notes * Chas Luevano NP - 04/21/2020 11:18 AM CSTAddended by: CHAS LUEVANO on: 04/21/2020 11:18 AM Modules accepted: Orders STRIPPER documented in this encounter Plan of Treatment Scheduled Referrals Name Type Priority Associated Diagnoses Orde r Schedule Ambulatory referral to Occupational Therapy Referral Routine Gait abnormality Cerebrovascular accident (CVA) due to thrombosis of right posterior cerebral artery (CMS/HCC HHS/HCC) Ordered: 04/21/2020 Ambulatory referral to Physical Therapy Referral Routine Gait abnormality Cerebrovascular accident (CVA) due to thrombosis of right posterior cerebral artery (CMS/HCC HHS/HCC) Ordered: 04/21/2020 documented as of this encounter Visit Diagnoses Diagnosis Gait abnormality- Primary Abnormality of gait Cerebrovascular accident (CVA) due to thrombosis of right posterior cerebral artery (CMS/HCC HHS/HCC) documented in this encounter Care Teams Director Of Strategic Marketing Relationship Specialty Start Date End Date Chas Luevano NP [address] [place] [address] PCP - General NURSE PRACTITIONER 01/14/20 10/26/23 Frank Toure MD [address] [place] [address] [employer] African History Professor CARDIOVASCULAR DISEASE 05/30/16 documented as of this encounter
--- OUTSIDE RECORDS SUMMARY | 2024-06-08 05:51 | XMS_ITS | Encounter Summary ---
Author Organization [facility] Address [address] [facility]. [place], [place] [address] [place] [address] Care Team Providers Care Payment Processor Name Role Phone Frank Toure MD Unavailable Josse Arboleda DO Primary Care Provider + [phone] Reason for Referral * Surgical (Urgent) - Closed Specialty Diagnoses / Procedures Referred By Anabella dan Referred To Contact VASCULAR SURGERY Diagnoses Peripheral arterial disease (CMS/HCC) Josse Arboleda DO [address] [place] [address] Phone: tel: fax: [facility] [address] [place] [address] Phone: tel: fax: Referral ID Status Reason Start Date Expiration Date V isits Requested Visits Authorized [id number] Closed Specialty Services 06/08/2019 07/07/2020 99 99 D WASTE COLLECTOR * Imaging (Emergency) - Closed Specialty Diagnoses / Procedures Referred By Anabella dan Referred To Contact RADIOLOGY Diagnoses Cyanosis of skin Procedures USV ART DUPLEX+LUIZ LOW MILDRED Josse Arboleda DO [address] [place] [address] Phone: tel: fax: Referral ID Status Reason Start Date Expiration Date Visits Re quested Visits Authorized [id number] Closed 06/08/2019 07/09/2020 1 1 D WASTE COLLECTOR Reason for Visit * Reason Comments Referral Request Wanting referral to Vasular for foot. URI cough, drainage, and congestion. Onset 3-4 days. Encounter Details Date Type Department Care Team (Late st Contact Info) Description 06/08/2019 11:20 AM SOLID WASTE COLLECTOR Office Visit [facility] Family Medicine - [address] [phone] Josse Arboleda DO [address] [place] [phone] Referral Request (Wanting referral to Vasular for foot.); URI (cough, drainage, and congestion. Onset 3-4 days.) Social History Tobacco Use Types Packs/Day Years [...] Reading Time Taken Comments Blood Pressure 120/77 06/08/2019 11:20 AM SOLID WASTE COLLECTOR Pulse 113 06/08/2019 11:20 AM SOLID WASTE COLLECTOR Temperature 36.3 ??C (97.4 ??F) 06/08/2019 11:[address] Respiratory Rate 14 06/08/2019 11:20 AM SOLID WASTE COLLECTOR Oxygen Saturation 98% 06/08/2019 11:20 AM SOLID WASTE COLLECTOR Inhaled Oxygen Concentration - - Weight - [...] in this encounter Progress Notes * Josse Arboleda DO - 06/08/2019 11:20 AM CSTAddended by: JOSSE ARBOLEDA on: 06/08/2019 03:34 PM Modules accepted: Orders, Level of Service D WASTE COLLECTOR * Josse Arboleda DO - 06/08/2019 11:20 AM CST Images from the original note were not included. OFFICE FOLLOW UP NOTE Encounter Date: 06/08/2019 Chief Complaint: 59-year-old male presents for Referral Request (Wanting referral to [facility] for foot.) and URI (cough, drainage, and congestion. Onset 3-4 days.) . HPI 3 weeks ago Noticed left middle toe getting darker, on the dorsal side Home health nurse saw this and asked him to see provider Pt does not have any pain And denies any decrease in sensitivity Pt with hx of SZ disorder, has had break through SZ and is under care of neuro URI This is a new problem. The current episode started in the past 4 days. The problem has been unchanged. There has been no fever. Associated symptoms include coughing, rhinorrhea, sinus pain, nasal congestion and a sore throat. Pertinent negatives include no abdominal pain, chest pain, diarrhea, ear pain, headaches, vomiting or wheezing. Review of Systems HENT: Positive for rhinorrhea, sinus pain, nasal congestion and sore throat. Respiratory: Positive for cough. Negative for wheezing. Cardiovascular: Negative for chest pain. Gastrointestinal: Negative for abdominal pain, diarrhea and vomiting. Neurological: Negative for headaches. + for hx of SZ disorder ROS Patient Active Problem List Diagnosis ??? Seizure [...] OF THE 250 MG TS 3 ??? ibuprofen 600 MG tablet Take 600 mg by mouth every 6 (six) hours as needed for Pain. ??? levETIRAcetam 1000 MG tablet Take 2 tablets (2,000 mg total) by mouth 2 (two) times daily. 60 tablet 0 ??? tamsulosin 0.4 MG Cap Take 1 capsule (0.4 mg total) by mouth daily. 90 capsule 0 ??? valproic acid 250 MG capsule Take 250 mg by mouth. 3 capsules daily ??? VIMPAT 50 MG Tab 200 mg 2 (two) times daily. ??? vitamin B-1 100 MG Tab Take 1 tablet (100 mg total) by mouth daily. 30 tablet 0 ??? Brivaracetam (BRIVIACT) 75 MG Tab Take 75 mg by mouth daily. Start taking one by mouth daily, increase as directed to two by mouth twice a day 120 tablet 3 ??? Eslicarbazepine Acetate 800 MG Tab Take 800 mg by mouth. ??? folic acid 1 MG tablet Take 1 tablet (1 mg total) by mouth daily. 90 tablet 0 ??? OXcarbazepine 150 MG tablet Take 3 tablets (450 mg total) by mouth 2 (two) times daily. 60 tablet 0 ??? QUEtiapine 100 MG tablet ??? sodium chloride 1 GM tablet Take 1 g by mouth. No current facility-administered medications for this visit. No Known Allergies Objective: Filed Vitals: 06/08/19 1120 BP: 120/77 Pulse: 113 Resp: 14 Temp: 97.4 ??F (36.3 ??C) TempSrc: Temporal SpO2: 98% Physical Exam Constitutional: He is oriented to person, place, and time and well-developed, well-nourished, and in no distress. HENT: Head: Normocephalic and atraumatic. Mouth/Throat: Oropharynx is clear and moist. No oropharyngeal exudate. Boggy appearing turbinates Clear nasal mucus Eyes: Conjunctivae and EOM are normal. Right eye exhibits no discharge. Left eye exhibits no discharge. No scleral icterus. Neck: No tracheal deviation present. Cardiovascular: Normal rate, regular rhythm and normal heart sounds. Left foot middle toe Appears darker in color when compared to other toes on dorsal side Dorsum of foot slightly darker as well Not cold to touch, has similar temperature when compared to right foot However, darker skin on left foot and is scaly in appearance and on toe can be peeled off to revealnormal appearing skin Dorsalis pedis pulse is weak on palpation Pulmonary/Chest: Effort normal and breath sounds normal. No stridor. No respiratory distress. He has no wheezes. He has no rales. Abdominal: There is no hepatosplenomegaly. Musculoskeletal: Normal range of motion. Lymphadenopathy: He has no cervical adenopathy. Neurological: He is alert and oriented to person, place, and time. No cranial nerve deficit. Skin: Skin is warm and dry. Psychiatric: Mood and affect normal. Vitals reviewed. Assessment / Plan: 1. Cyanosis of skin - USV ART DUPLEX+LUIZ LOW MILDRED; Future 2. Acute upper respiratory infection, unspecified 3. Peripheral arterial disease (CMS/HCC) - AMB REFERRAL TO VASCULAR SURGERY left middle toe darker in color Overlying scaly skin is darker in color Weak pulse Will check stat art doppler/LUIZ URI Wash hands Stay hydrated Can take robutissin PRN F/u if not better STAT LUIZ returned Spoke with Adriane, his sister Pt has mod to severe PAD based on testing Already on statin and baby asa He has hx of SZ disorder that he gets often Discussed with sister about bleeding risk of higher dose of ASA or plavix. Plan is to cont current meds, and urgent referral placed to see vascular, which she is requesting [facility] Advised if sx worsen in any way, go to ER JOSSE ARBOLEDA DO D WASTE COLLECTOR D WASTE COLLECTOR D WASTE COLLECTOR documented in this encounter Plan of Treatment Scheduled Referrals Name Type Priority Associated Diagnoses Orde r Schedule Ambulatory referral to Vascular Surgery (OTHER) Referral Routine Peripheral arterial disease Ordered: 06/08/2019 documented as of this encounter Results * USV ART DUPLEX+LUIZ LOW MILDRED (06/11/2019 10:30 AM SOLID WASTE COLLECTOR) Anatomical Region Laterality Modality Extremity Vascular Ultraso und us Josse Arboleda DO VAS Final Result documented in this encounter Visit Diagnoses Diagnosis Cyanosis of skin- Primary Acute upper respiratory infection, unspecified Peripheral arterial disease (CMS/HCC) Peripheral vascular disease, unspecified documented in this encounter Care Teams Payment Processor Relationship Specialty Start Date End Date Josse Arboleda DO [address] [place] [address] PCP - General FAMILY PRACTICE 09/28/18 01/13/20 Frank Toure MD [address] [place] [address] [place] Signaler CARDIOVASCULAR DISEASE 05/30/16 documented as of this encounter
--- OUTSIDE RECORDS SUMMARY | 2024-06-08 05:51 | XMS_ITS | Encounter Summary ---
Author Organization [facility] Address [address] [place] [address] [place] [address] Care Team Providers Care Hotel Lobby Concierge Name Role Phone Frank Toure MD Unavailable Joyce Luevano VIDEO GAME MAKER Primary Care Provider Unavaila ble Reason for Visit * Reason Onset Date Comments Appointment Request 01/14/2020 Encounter Details Date Type Department Care Team (Late st Contact Info) Description 01/14/2020 Telephone [facility] Family Medicine - [address] [phone] Joyce Luevano NP Appointment Request Social History Tobacco Use Types Packs/Day [...] Status Yes 12/04/2018 2:03 PM CDT Anahi Jernigna RN Active * Do you have difficulty [...] Progress Notes * Yonatan Rodriguez RN - 01/14/2020 3:02 PM CDT Rx pended to Joyce for approval or refusal of 30 day supply. Last Ov was 06/08/[address] Maradiaga and is coming in on 01/22/2020 to establish care with Joyce. * Natalie Cruz - 01/14/2020 2:57 PM CDT Patient is scheduled to come in on 01/21 to [facility]/Joyce * Yonatan Rodriguez RN - 01/14/2020 10:56 AM CDT Can we please call patient to get him scheduled with a new provider? Thanks! Received Rx for amlodipine. documented in this encounter Plan of Treatment Not on file documented as of this encounter Visit Diagnoses Diagnosis Essential hypertension Unspecified essential hypertension documented in this encounter Care Teams Hotel Lobby Concierge Relationship Specialty Start Date End Date Joyce Luevano NP [address] [place] [address] PCP - General NURSE PRACTITIONER 01/14/20 10/26/23 Frank Toure MD [address] [place] [address] [employer] Film Mounter CARDIOVASCULAR DISEASE 05/30/16 documented as of this encounter
--- OUTSIDE RECORDS SUMMARY | 2024-06-08 05:51 | XMS_ITS | Encounter Summary ---
Author Organization [facility] Address [facility] [place] [address] [place] [address] Care Team Providers Care Healthcare Administrative Assistant Name Role Phone Frank Toure MD Unavailable Joyce Luevano GEOGRAPHIC INFORMATION SYSTEM SURVEYOR Primary Care Provider Unavaila ble Reason for Visit * Reason Comments Follow Up Encounter Details Date Type Department Care Team (Late st Contact Info) Description 03/03/2021 9:40 AM CDT Office Visit [facility] Family Medicine - [address] [phone] Bill Amor MD [address] [address] Follow Up Social History Tobacco Use Types Packs/Day Years [...] Sign Reading Time Taken Comments Blood Pressure 134/88 03/03/2021 9:32 AM CDT Pulse 67 03/03/2021 9:32 AM CDT Temperature 36.1 ??C (97 ??F) 03/03/2021 9:32 AM CDT Respiratory Rate 18 03/03/2021 9:32 AM CDT Oxygen Saturation 99% 03/03/2021 9:32 AM CDT Inhaled Oxygen Concentration - - Weight 57.6 kg (127 lb) 03/03/2021 9:32 AM CDT Height 180.3 cm (5' 11 ) 03/03/2021 9:32 AM CDT Body Mass Index 17.71 03/03/2021 9:32 AM CDT documented in this encounter Functional [...] documented in this encounter Progress Notes * Bill Amor MD - 03/03/2021 9:40 AM CDT Reason for Visit: Follow Up History of Present Illness: Pt is a 61 yo BM who presents to clinic for follow up to recent ER visit. Pt was seen at [facility] ER after having some weakness and L sided rigidity. Pt is feeling well overall today and thinks it was alldue to issues with meds not being given properly at his NH. Pt is wondering what else needs to be done. Pt would like to be moved to a different facility that is more independent. Pt is here with his sister. ROS: Review of Systems Constitutional: Negative. HENT: Negative. Eyes: Negative. Respiratory: Negative. Cardiovascular: Negative. Gastrointestinal: Negative. Endocrine: Negative. Genitourinary: Negative. Musculoskeletal: Negative. Skin: Negative. Neurological: Positive for seizures and paralysis. Psychiatric/Behavioral: Negative. Medications: Current Outpatient Medications: ??? acetaminophen 325 MG tablet, Take 1 tablet (325 mg total) by mouth every 8 (eight) hours as needed for Pain., Disp: 90 tablet, Rfl: 2 ??? amLODIPine 5 MG tablet, Take 1 tablet (5 mg total) by mouth daily., Disp: 30 tablet, Rfl: 0 ??? aspirin EC (ASPIRIN EC) 81 MG tablet, Take 81 mg by mouth daily., Disp: , Rfl: ??? atorvastatin 40 MG tablet, Take 40 mg by mouth daily., Disp: , Rfl: ??? cefpodoxime 100 MG tablet, , Disp: , Rfl: ??? Cholecalciferol 25 MCG (1000 UT) Chew Tab, Chew 1,000 Units by mouth daily., Disp: , Rfl: ??? clonazePAM 0.5 MG tablet, TK 1 T PO Q 8 H PRN. PLEASE CALL OFFICE IF SEIZURES OCCUR AFTER TAKING., Disp: , Rfl: 5 ??? divalproex EC 500 MG tablet, Take 500 mg by mouth 2 (two) times daily., Disp: , Rfl: ??? divalproex ER 250 MG 24 hr tablet, , Disp: , Rfl: ??? fluticasone propionate 50 MCG/ACT nasal spray, , Disp: , Rfl: ??? folic acid 1 MG tablet, , Disp: , Rfl: ??? ibuprofen 600 MG tablet, Take 600 mg by mouth every 8 (eight) hours as needed., Disp: , Rfl: ??? Lacosamide 150 MG Tab, Take 1 tablet in AM (instead of 200 mg tablet) for 2 weeks then 1 tabletBID (insead of 200 mg tablets) Call with questions., Disp: , Rfl: ??? levETIRAcetam 1000 MG tablet, Take 2 tablets (2,000 mg total) by mouth 2 (two) times daily., Disp: 60 tablet, Rfl: 0 ??? Multiple Vitamin (ONE DAILY MULTIVITAMIN ADULT) Tab, Take 1 tablet by mouth daily., Disp: , Rfl: ??? tamsulosin (FLOMAX) 0.4 MG Cap, Take 1 capsule (0.4 mg total) by mouth daily., Disp: 90 capsule, Rfl: 1 ??? valproic acid 250 MG capsule, Take 1 capsule (250 mg total) by mouth 2 (two) times daily. 3 capsules daily, Disp: 120 capsule, Rfl: 0 ??? VIMPAT 50 MG Tab, Take 4 tablets (200 mg total) by mouth 2 (two) times daily., Disp: 60 tablet,Rfl: 0 ??? vitamin B-1 100 MG Tab, Take 1 tablet (100 mg total) by mouth daily., Disp: 30 tablet, Rfl: 0 ??? Vitamin D, Cholecalciferol, 25 MCG (1000 UT) Cap, , Disp: , Rfl: No Known Allergies Past Medical History: Diagnosis Date ??? Dysphagia [...] 0.50 ??? Smokeless tobacco: Never Used Substance and Sexual Activity ??? Alcohol use: No ??? Drug use: No ??? Sexual [...] Gatherings with Friends and Family: ??? Attends Temple Services: ??? Active Member of Clubs or Organizations: ??? Attends Club or Organization Meetings: ??? Marital Status: Intimate Partner Violence: ??? Fear of Current or Ex-Partner: ??? Emotionally Abused: ??? Physically Abused: ??? Sexually Abused: E-Cigarettes Questions Responses E-Cigarette Use Never User E-cigarette/Vaping Substances Questions Responses Nicotine No THC No CBD No Flavoring No E-cigarette/Vaping Devices Questions Responses Disposable No Pre-filled or Refillable Cartridge No Refillable Tank No Pre-filled Pod No Family History Family history unknown: Yes Family Status Relation Name Status ??? Mother ??? Father Alive ??? Sister Alive ??? Brother Alive ??? Daughter Alive ??? Son Alive ??? Sister Alive ??? Sister Alive ??? Brother Alive ??? Brother Alive ??? Brother Alive ??? Brother Alive ??? Daughter Alive ??? Daughter Alive ??? Son Alive ??? Son Alive Physical Exam Vitals and nursing note reviewed. Constitutional: Appearance: He is well-developed. HENT: Head: Normocephalic and atraumatic. Right Ear: External ear normal. Left Ear: External ear normal. Nose: Nose normal. Mouth/Throat: Oropharynx is clear and moist. Eyes: Conjunctiva/sclera: Conjunctivae normal. Pupils: Pupils are equal, round, and reactive to light. Cardiovascular: Rate and Rhythm: Normal rate and regular rhythm. Heart sounds: Normal heart sounds. Pulmonary: Effort: Pulmonary effort is normal. Breath sounds: Normal breath sounds. Abdominal: General: Bowel sounds are normal. Palpations: Abdomen is soft. Musculoskeletal: General: Normal range of motion. Cervical back: Normal range of motion and neck supple. Skin: General: Skin is warm and dry. Neurological: Mental Status: He is alert and oriented to person, place, and time. Psychiatric: Behavior: Behavior normal. Thought Content: Thought content normal. Judgment: Judgment normal. Filed Vitals: 03/03/21 0932 BP: 134/88 Pulse: 67 Resp: 18 Temp: 97 ??F (36.1 ??C) TempSrc: Temporal SpO2: 99% Weight: 57.6 kg (127 lb) Height: 5' 11 (1.803 m) Diagnoses/Impression: 1. Cerebrovascular accident (CVA) due to thrombosis of right posterior cerebral artery (CMS/HCC) 2. Seizure (CMS/HCC) Recommendations and Plan: CVA with seizure d/o - pt with seizures that are very dependent on his current medications. Will need to stay compliant with current meds. Will have pt follow up as needed moving forward. [facility] No change to regimen. Recommend change in living arrangement if can be arranged. Orders Placed This Encounter ??? DISCONTD: clonazePAM 0.25 MG disintegrating tablet ??? folic acid 1 MG tablet Reviewed and updated this visit by provider: BILL AMOR MD Referring Provider: No ref. provider found PCP: Joyce Luevano NP documented in this encounter Plan of Treatment Not on file documented as of this encounter Visit Diagnoses Diagnosis Cerebrovascular accident (CVA) due to thrombosis of right posterior cerebral artery (CMS/HCC HHS/HCC)- Primary Seizure (CMS/HCC HHS/HCC) Other convulsions documented in this encounter Care Teams Healthcare Administrative Assistant Relationship Specialty Start Date End Date Joyce Luevano NP [address] [place] [address] PCP - General NURSE PRACTITIONER 01/14/20 10/26/23 Frank Toure MD [address] [place] [address] [employer] Professor Of Business Administration CARDIOVASCULAR DISEASE 05/30/16 documented as of this encounter
--- OUTSIDE RECORDS SUMMARY | 2024-06-08 05:51 | XMS_ITS | Encounter Summary ---
Author Organization [facility] Address [address] [facility] [place] [address] [place] [address] Care Team Providers Care Subpoena Server Name Role Phone Frakn Toure MD Unavailable Joyce Luevano SENIOR CORPORATE STRATEGY MANAGER Primary Care Provider Unavaila ble Reason for Referral * Speech Therapy (Routine) - Closed Specialty Diagnoses / Procedures Referred By Anabella dan Referred To Contact SPEECH THERAPY Diagnoses Oropharyngeal dysphagia Bill Amor MD Phone: tel: fax: [facility]- [address] [place] [phone] Referral ID Status Reason Start Date Expiration Date V isits Requested Visits Authorized [id number] Closed Specialty Services 11/28/2020 12/28/2021 99 99 Reason for Visit * Reason Comments Urinary Retention PATIENT HAS BEEN C/O URINARY RETENTTION Other PATIENT WOULD LIKE T HE CHOKING CHAZ OFF HIS RECORD SO HE CAN RETURN TO NORMAL FOOD INSTEAD OF PUREED Encounter Details Date Type Department Care Team (Late st Contact Info) Description 11/28/2020 11:20 AM CDT Office Visit [facility] Family Medicine - [address] [phone] Bill Amor MD [address] [address] Urinary Retention (PATIENT HAS BEEN C/O URINARY RETENTTION); Other (PATIENT WOULD LIKE THE CHOKING CHAZ OFF HIS RECORD SO HE CAN RETURN TO NORMAL FOOD INSTEAD OF PUREED ) Social History Tobacco Use Types Packs/Day [...] Sign Reading Time Taken Comments Blood Pressure 110/58 11/28/2020 11:04 AM CDT Pulse 72 11/28/2020 11:04 AM CDT Temperature 36.2 ??C (97.2 ??F) 11/28/2020 11:04 AM C DT Respiratory Rate 18 11/28/2020 11:04 AM CDT Oxygen Saturation 98% 11/28/2020 11:04 AM CDT Inhaled Oxygen Concentration - - Weight 56.2 kg (124 lb) 11/28/2020 11:04 AM CDT Height 180.3 cm (5' 11 ) 11/28/2020 11:04 AM CDT Body Mass Index 17.29 11/28/2020 11:04 AM CDT documented in this encounter Functional [...] Progress Notes * Bill Amor MD - 11/28/2020 11:20 AM CDT Reason for Visit: Urinary Retention (PATIENT HAS BEEN C/O URINARY RETENTTION) and Other (PATIENT WOULD LIKE THE CHOKING CHAZ OFF HIS RECORD SO HE CAN RETURN TO NORMAL FOOD INSTEAD OF PUREED ) History of Present Illness: Pt is a 60 yo BM who presents to clinic with complaint of urinary retention. Pt states that he is feeling ok overall but is still having trouble initiating his stream. He had been on flomax in the past that helped quite a bit. He is hoping to restart. Pt has hx of CVA and lives in a NH. He is frustrated that he is on a pureed diet and feels like he can eat solid foods. He would like to be reevalua vickie ROS: Review of Systems Constitutional: Negative. HENT: Negative. Eyes: Negative. Respiratory: Negative. Cardiovascular: Negative. Gastrointestinal: Negative. Endocrine: Negative. Genitourinary: Positive for difficulty urinating. Musculoskeletal: Negative. Skin: Negative. Neurological: Negative. Psychiatric/Behavioral: Negative. Medications: Current Outpatient Medications: ??? acetaminophen 325 MG tablet, Take 1 tablet (325 mg total) by mouth every 8 (eight) hours as needed for Pain., Disp: 90 tablet, Rfl: 2 ??? amLODIPine 5 MG tablet, Take 1 tablet (5 mg total) by mouth daily., Disp: 30 tablet, Rfl: 0 ??? aspirin 81 MG chewable tablet, Chew 1 tablet (81 mg total) by mouth daily., Disp: 90 tablet, Rfl: 0 ??? atorvastatin 40 MG tablet, Take 40 mg by mouth., Disp: , Rfl: ??? cefpodoxime 100 MG tablet, , Disp: , Rfl: ??? clonazePAM 0.5 MG tablet, TK 1 T PO Q 8 H PRN. PLEASE CALL OFFICE IF SEIZURES OCCUR AFTER TAKING., Disp: , Rfl: 5 ??? divalproex ER 250 MG 24 hr tablet, , Disp: , Rfl: ??? divalproex ER 500 MG 24 hr tablet, TK 2 TS PO D IN ADDITION TO 1 OF THE 250 MG TS, Disp: , Rfl:3 ??? fluticasone propionate 50 MCG/ACT nasal spray, , Disp: , Rfl: ??? Lacosamide 150 MG Tab, Take 1 tablet in AM (instead of 200 mg tablet) for 2 weeks then 1 tabletBID (insead of 200 mg tablets) Call with questions., Disp: , Rfl: ??? levETIRAcetam 1000 MG tablet, Take 2 tablets (2,000 mg total) by mouth 2 (two) times daily., Disp: 60 tablet, Rfl: 0 ??? tamsulosin (FLOMAX) 0.4 MG Cap, Take 1 capsule (0.4 mg total) by mouth daily., Disp: 90 capsule, Rfl: 1 ??? tamsulosin 0.4 MG Cap, Take 1 capsule (0.4 mg total) by mouth daily., Disp: 90 capsule, Rfl: 0 ??? valproic acid 250 MG capsule, Take [...] Allergies Past Medical History: Diagnosis Date ??? HLD [...] Gatherings with Friends and Family: ??? Attends [employer] Services: ??? Active Member of Clubs or [...] content normal. Judgment: Judgment normal. Filed Vitals: 11/28/20 1104 BP: 110/58 Pulse: 72 Resp: 18 Temp: 97.2 ??F (36.2 ??C) TempSrc: Temporal SpO2: 98% Weight: 56.2 kg (124 lb) Height: 5' 11 (1.803 m) Diagnoses/Impression: 1. Urinary retention tamsulosin (FLOMAX) 0.4 MG Cap 2. Oropharyngeal dysphagia Ambulatory referral to Speech Therapy Recommendations and Plan: Urinary retention - will start on flomax and have pt follow up as needed moving forward. Paper Rx given to be turned into NH. Dysphagia - initially may have been due to sedation from his medications. Much more alert now. Willrefer to speech therapy for repeat testing. Orders Placed This Encounter ??? Ambulatory referral to Speech Therapy ??? cefpodoxime 100 MG tablet ??? atorvastatin 40 MG tablet ??? tamsulosin (FLOMAX) 0.4 MG Cap Reviewed and updated this visit by provider: BILL AMOR MD Referring Provider: No ref. provider found PCP: Joyce Luevano NP documented in this encounter Plan of Treatment Scheduled Referrals Name Type Priority Associated Diagnoses Orde r Schedule Ambulatory referral to Speech Therapy Referral Routine Oropharyngeal dysphagia Ordered: 11/28/2020 documented as of this encounter Visit Diagnoses Diagnosis Urinary retention- Primary Retention of urine, unspecified Oropharyngeal dysphagia Dysphagia, oropharyngeal phase documented in this encounter Care Teams Subpoena Server Relationship Specialty Start Date End Date Joyce Luevano NP [address] [place] [address] PCP - General NURSE PRACTITIONER 01/14/20 10/26/23 Frank Toure MD [address] [place] [address] Chivo Lost Charge Card Clerk CARDIOVASCULAR DISEASE 05/30/16 documented as of this encounter
--- OUTSIDE RECORDS SUMMARY | 2024-06-08 05:51 | XMS_ITS | Encounter Summary ---
Author Organization [facility] Address [address] [facility]. [place], [place] [address] [place] [address] Care Team Providers Care Ceramic Artist Name Role Phone Frank Toure MD Unavailable Joyce Luevano NP Primary Care Provider Unavaila ble Encounter Details Date Type Department Care Team (Latest Contact Info) Description 09/05/2020 Scan HEALTH INFO SRVCS Scanned, Documents Social [...] on filedocumented in this encounter Care Teams Ceramic Artist Relationship Specialty Start Date End Date Joyce Luevano NP [address] [place] [address] PCP - General NURSE PRACTITIONER 01/14/20 10/26/23 Frank Toure MD [address] [place] [address] Chivo Supervisor Estimator And Drafter CARDIOVASCULAR DISEASE 05/30/16 documented as of this encounter
--- OUTSIDE RECORDS SUMMARY | 2024-06-08 05:51 | XMS_ITS | Encounter Summary ---
Author Organization [facility] Address [address] [facility]. [place], [place] [address] [place] [address] Care Team Providers Care Gas Singer Name Role Phone Frank Toure MD Unavailable Joyce Luevano NP Primary Care Provider Unavaila ble Reason for Referral * Speech Therapy (Routine) - Closed Specialty Diagnoses / Procedures Referred By Contkatarzyna t Referred To Contact SPEECH THERAPY Diagnoses Seizure ([facility]) Joyce Luevano NP [address] [place] [address] Referral ID Status Reason Start Date Expiration Date V isits Requested Visits Authorized [id number] Closed Specialty Services 09/05/2020 10/05/2021 1 1 * Occupational Therapy (Routine) - Closed Specialty Diagnoses / Procedures Referred By Contac t Referred To Contact Occupational Therapy Diagnoses Seizure ([facility]) Joyce Luevano NP [address] [place] [address] Referral ID Status Reason Start Date Expiration Date V isits Requested Visits Authorized [id number] Closed Specialty Services 09/05/2020 10/05/2021 1 1 * Physical Medicine (Routine) - Closed Specialty Diagnoses / Procedures Referred By Contac t Referred To Contact PHYSICAL THERAPY Diagnoses Seizure ([facility]) Joyce Luevano NP [address] [place] [address] Referral ID Status Reason Start Date Expiration Date V isits Requested Visits Authorized [id number] Closed Physical Therapy 09/05/2020 10/05/2021 1 1 Reason for Visit * Reason Comments Hospital Follow Up Pt went to ER [facility] fo r seizures. Encounter Details Date Type Department Care Team (Late st Contact Info) Description 09/05/2020 7:40 AM CDT Office Visit [facility] Family Medicine [address] [phone] Joyce Luevano NP Hospital Follow Up (Pt went to ER [facility] for seizures. ) Social History Tobacco Use Types Packs/Day [...] Sign Reading Time Taken Comments Blood Pressure 132/70 09/05/2020 7:57 AM CDT Pulse 74 09/05/2020 7:57 AM CDT Temperature 36.7 ??C (98 ??F) 09/05/2020 7:57 AM CDT Respiratory Rate 16 09/05/2020 7:57 AM CDT Oxygen Saturation 97% 09/05/2020 7:57 AM CDT Inhaled Oxygen Concentration - - Weight 67.6 kg (149 lb) 09/05/2020 7:57 AM CDT Height 180.3 cm (5' 11 ) 09/05/2020 7:57 AM CDT Body Mass Index 20.78 09/05/2020 7:57 AM CDT documented in this encounter Functional [...] this encounter Progress Notes * Joyce Luevano, RANCH SUPERVISOR - 09/05/2020 7:40 AM CDT Images from the original note were not included. OFFICE FOLLOW UP NOTE Encounter Date: 09/05/2020 Chief Complaint: 60-year-old male presents for Hospital Follow Up ([facility]. ) . Patient comes in with his sister He resides in a nursing facility He comes in for follow up after hospitalization at [facility] from 08/11-08/21 due to seizures Sister states that his medications were changed by the provider at the facility he is at He is now back on a regimen that is controlling his seizures (see med list) He remains to be disoriented at times He was discharged with puree diet along with orders for PT and speech per records that were sent over from facilty Sister does not feel that things are going to get done without orders from this office. Facial rash Sister states that he is allergic to the masks provided at the facility and he is breaking out around his nose and mouth States that it is looks a lot better than it did 3 days ago when she visited and before she gave him a different mask to use. Per her report there has been no additional reports of fever While hospitalized he had fever and was started on abx for a UTI He remains in a wheel chair as he did prior to this past hospitalization. Review of Systems Unable to perform ROS: Dementia (full review of systme completed but patient's anwers are were not consistent with findings) Constitutional: Negative for chills and fever. Respiratory: [...] Outpatient Medications Medication Sig Dispense Refill ??? amLODIPine 5 MG tablet Take 1 tablet (5 mg total) by mouth daily. 30 tablet 0 ??? levETIRAcetam 1000 MG tablet Take 2 tablets (2,000 mg total) by mouth 2 (two) times daily. 60 tablet 0 ??? VIMPAT 50 MG Tab Take 4 tablets (200 mg total) by mouth 2 (two) times daily. 60 tablet 0 ??? acetaminophen 325 MG tablet Take 1 tablet (325 mg total) by mouth every 8 (eight) hours as needed for Pain. 90 tablet 2 ??? aspirin 81 MG chewable tablet Chew [...] 200 mg tablets) Call with questions. ??? tamsulosin 0.4 MG Cap Take 1 capsule (0.4 mg total) by mouth daily. 90 capsule 0 ??? valproic acid 250 MG capsule Take 1 capsule (250 mg total) by mouth 2 (two) times daily. 3 capsules daily 120 capsule 0 ??? vitamin B-1 100 MG Tab Take 1 tablet (100 mg total) by mouth daily. 30 tablet 0 ??? Vitamin D, Cholecalciferol, 25 MCG (1000 UT) Cap No current facility-administered medications for this visit. No Known Allergies Objective: Filed Vitals: 09/05/20 0757 BP: 132/70 Pulse: 74 Resp: 16 Temp: 98 ??F (36.7 ??C) TempSrc: Temporal SpO2: 97% Weight: 67.6 kg (149 lb) Height: 5' 11 (1.803 m) Body mass index is 20.78 kg/m??. No LMP for male patient. Physical Exam Constitutional: He is well-developed, well-nourished, and in no distress. Cardiovascular: Normal rate, regular rhythm and normal heart sounds. Pulmonary/Chest: Effort normal and breath sounds normal. Neurological: He is alert. Wheelchair bound. Skin: Skin is warm and dry. Creases of nose and around mouth with irritated skin Mask with signs of drainage/yellow but this has been used for several days There are no signs of drainage today. He has thick flaky skin around ears, hairline and into scalp Nursing note and vitals reviewed. Assessment: Encounter Diagnose(s) ICD-10-CM ICD-9-CM 1. Seizure ([facility]) R56.9 780.39 Ambulatory referral to Physical Therapy Ambulatory referral to Occupational Therapy Ambulatory referral to Speech Therapy 2. Seborrheic dermatitis L21.9 690.10 Plan: Bi was seen today for hospital follow up. Diagnoses and all orders for this visit: Seizure ([facility]) - Ambulatory referral to Physical Therapy - Ambulatory referral to Occupational Therapy - Ambulatory referral to Speech Therapy Seborrheic dermatitis Continue all medication as ordered Seborrheic dermatitis Use coal tar shampoo weekly Use mask that do not irritate skin (sister will provide) Follow up in office as needed otherwise follow up with his house provider. Reminded of appointment with neurology on 09/17/2020 I spent 40 minutes today reviewing the patient's medical record, obtaining history, performing an exam, ordering medications, tests, and/or procedures, documenting in the medical record and reviewingand communicating test results. Discussed plan of care with patient. Patient verbalized understanding. [place]- documented in this encounter Plan of Treatment Scheduled Referrals Name Type Priority Associated Diagnoses Orde r Schedule Ambulatory referral to Physical Therapy Referral Routine Seizure ([facility]) Ordered: 09/05/2020 Ambulatory referral to Occupational Therapy Referral Routine Seizure ([facility] HHS/[facility]) Ordered: 09/05/2020 Ambulatory referral to Speech Therapy Referral Routine Seizure ([facility]) Ordered: 09/05/2020 documented as of this encounter Visit Diagnoses Diagnosis Seizure ([facility] HHS/[facility])- Primary Other convulsions Seborrheic dermatitis Seborrheic dermatitis, unspecified documented in this encounter Care Teams Gas Singer Relationship Specialty Start Date End Date Joyce Luevano NP [address] [place] [address] PCP - General NURSE PRACTITIONER 01/14/20 10/26/23 Frank Toure MD [address] [place] [address] Chivo Manager Client CARDIOVASCULAR DISEASE 05/30/16 documented as of this encounter
--- OUTSIDE RECORDS SUMMARY | 2024-06-08 05:51 | XMS_ITS | Encounter Summary ---
Author Organization [facility] Address [facility]. [place], [place] [address] [place] [address] Care Team Providers Care Frozen Meat Cutter Name Role Phone Frank Toure MD Unavailable Misael Maradiaga DO Primary Care Provider [phone] Reason for Referral * Consultation (Urgent) - Closed Specialty Diagnoses / Procedures Referred By nAabella dan Referred To Contact Assisted Living Facility Diagnoses Cerebrovascular accident (CVA) due to thrombosis of right posterior cerebral artery ([facility]/HCC HHS/HCC) Unable to function with complete independence At risk for medication nonadherence Misael Maradiaga DO [facility] [place] [address] Phone: tel: fax: [address] [phone] Phone: tel: fax: Referral ID Status Reason Start Date Expiration Date V isits Requested Visits Authorized [id number] Closed Specialty Services 2019 02/27/2020 99 99 Reason for Visit * Reason Onset Date Comments Referral Request 2019 Question 2019 FYI 2019 Encounter Details Date Type Department Care Team (Late st Contact Info) Description 2019 Telephone [facility] Family Medicine - [address] [phone] Misael Maradiaga, [address] [phone] Referral Request; Question; FYI Social History Tobacco Use Types Packs/Day Years [...] documented in this encounter Progress Notes * Veronica Herr - 2019 11:32 AM CDT [facility] CALLED BACK FOR PT INSURANCE INFO AND STATED THAT THEY WOULD BE SENDING [facility] VISITING NURSE [facility]---THERE IS NOTHING MORE DR SARABIA OR THE TEAM NEEDS TO DO AT THIS TIME TBRIA WILL CONTACT ADRIANE --THE PATIENTS SISTER * Yonatan Horvath RN - 2019 10:34 AM CDT Referral placed per Dr. Maradiaga's approval as urgent. Note states everything that needs to be included when faxed to [facility]. * Yonatan Horvath RN - 2019 9:33 AM CDT Spoke to Mya with [facility] in [place]. She states they would need notes, medications, and insurance information faxed over, along with a referral. After they receive this information and the medicalteam goes over it, they will come out to the patient's house to do an over-screening to make sure the patient is a good fit for their services. Mya states this can be faxed to [phone], Attn: Herb or Mya. Okay to place referral? Or should patient have appt first? Thanks! * Yonatan Horvath RN - 2019 8:34 AM CDT This phone number rings, then goes silent. Has happened twice. Will try later. * Yonatan Horvath RN - 2019 8:33 AM CDT Per Veronica, patient's sister states she has been talking to an Herb at [phone]. Will try to call this number to clarify what is needed. * Yonatan Horvath RN - 2019 8:17 AM CDT Called [facility] in [place] at [phone] and [facility] for Mya to call me back. Called to see what theprocess was for this. * Veronica Herr - 2019 7:59 AM CDT PT CALLED WITH SISTER ADRIANE SLADE ON THE PHONE--PT WOULD LIKE TO GO TO [facility] [facility]---PT IS NO LONGER ABLE TO CARE FOR SELF AND NOT TAKING MEDS PROPERLY documented in this encounter Plan of Treatment Scheduled Referrals Name Type Priority Associated Diagnoses Orde r Schedule Ambulatory referral to Other Referral Routine Cerebrovascular accident (CVA) due to thrombosis of right posterior cerebral artery (CMS/HCC HHS/HCC) Unable to function with complete independence At risk for medication nonadherence Ordered: 2019 documented as of this encounter Visit Diagnoses Diagnosis Cerebrovascular accident (CVA) due to thrombosis of right posterior cerebral artery (CMS/HCC HHS/HCC)- Primary Unable to function with complete independence At risk for medication nonadherence documented in this encounter Care Teams Frozen Meat Cutter Relationship Specialty Start Date End Date Misael Maradiaga DO [address] [place] [address] PCP - General FAMILY PRACTICE 09/28/18 01/13/20 Frank Toure MD [address] [place] [address] [place] Outer Diameter Grinder Tool CARDIOVASCULAR DISEASE 05/30/16 documented as of this encounter
--- OUTSIDE RECORDS SUMMARY | 2024-06-08 05:51 | XMS_ITS | Encounter Summary ---
Author Organization [facility] Address [address] [facility] [place] [address] [place] [address] Care Team Providers Care Smoke Chaser Name Role Phone Frank Toure MD Unavailable Misael Maradiaga DO Primary Care Provider [phone] Reason for Visit * Reason Onset Date Comments Refill Request 01/03/2019 Information 01/03/2019 Encounter Details Date Type Department Care Team (Late st Contact Info) Description 01/03/2019 Telephone [facility] Family Medicine - [place] [address] [place] [address] Misael aMradiaga DO [address] [place] [phone] Refill Request; Information Social History Tobacco Use Types Packs/Day [...] Progress Notes * Yonatan Horvath RN - 01/03/2019 1:53 PM CDT Pharmacy updated in [facility]. * Veronica Herr - 01/03/2019 1:46 PM CDT PLEASE CHANGE PT PHARMACY TO [facility] [address] [address] FAX [phone] PHONE [phone] PER PHARMACIST THEY WILL BE FAXING SCRIPT REFILL REQUESTS documented in this encounter Plan of Treatment Not on file documented as of this encounter Visit Diagnoses Not on filedocumented in this encounter Care Teams Smoke Chaser Relationship Specialty Start Date End Date Misael Maradiaga DO [address] [place] [address] PCP - General FAMILY PRACTICE 09/28/18 01/13/20 Frank Toure MD [address] [place] [address] [employer] Food Service Representative CARDIOVASCULAR DISEASE 05/30/16 documented as of this encounter
--- OUTSIDE RECORDS SUMMARY | 2024-06-08 05:52 | XMS_ITS | Encounter Summary ---
Author Organization [facility] Address [address] [facility] [place] [address] [place] [address] Care Team Providers Care Polishing Machine Operator Helper Name Role Phone Frank Toure MD Unavailable Kayla Porras NP Primary Care Provider [phone] Reason for Visit * Reason Comments Outside Record (SCAN) [facility] EMERGENCY DEPT CARE NOTE Encounter Details Date Type Department Care Team (Late st Contact Info) Description 05/01/2018 Scan HEALTH INFO SRVCS Scanned, Documents Outside Record (SCAN) ([facility] EMERGENCY DEPT CARE NOTE) Social History Tobacco Use Types Packs/Day Years [...] Answer Date of Assessment Author Status No 08/28/2017 2:38 PM CDT Activ e * RETIRED Are you blind or do you have serious difficulty seeing, even when wearing glasses? Answer Date of Assessment Author Status No 08/28/2017 2:38 PM CDT Activ e * Do you have serious difficulty walking or climbing stairs? Answer Date of Assessment Author Status No 08/28/2017 2:38 PM CDT Loraine Staley RN Active * Do you have difficulty dressing or bathing? Answer Date of Assessment Author Status No 08/28/2017 2:38 PM Loraine Liao RN Active * Because of a physical, mental, or emotional condition, do you have difficulty doing errands alone such as visiting a doctor's office or shopping? Answer Date of Assessment Author Status No 08/28/2017 2:38 PM Loraine Liao RN Active documented as of this encounter Mental Status * Because of a physical, mental, or emotional condition, do you have serious difficulty concentrating, remembering, or making decisions? Answer Entry Date Author Status No 08/28/2017 2:38 PM Loraine Liao RN Active documented in this encounter Plan of Treatment Not on file documented as of this encounter Visit Diagnoses Not on filedocumented in this encounter Care Teams Polishing Machine Operator Helper Relationship Specialty Start Date End [place] [address] PCP - General 06/25/16 09/27/18 Frank Toure MD [address] [place] [address] Chivo Machine Programmer CARDIOVASCULAR DISEASE 05/30/16 documented as of this encounter
--- OUTSIDE RECORDS SUMMARY | 2024-06-08 05:52 | XMS_ITS | Encounter Summary ---
Author Organization [facility] Address [address] [facility] [place] [address] [place] [address] Care Team Providers Care Cathode Builder Name Role Phone Frank Toure MD Unavailable Misael Maradiaga DO Primary Care Provider + [phone] Reason for Visit * Reason Onset Date Comments Follow Up Call 12/11/2018 Encounter Details Date Type Department Care Team (Late st Contact Info) Description 12/11/2018 Telephone [facility] Family Medicine - [address] [place] [address] Kayla Porras NP [address] [place] [id number] Follow Up Call Social History Tobacco Use [...] documented in this encounter Progress Notes * Kayla Porras NP - 12/11/2018 4:34 PM CDT ----- Message from Kami Zamorano sent at 12/11/2018 1:22 PM CDT ----- Regarding: NO SHOWS For your records, I have had Mr. Tabor scheduled for a physical therapy evaluation twice and each one has turned out to be a no show. He was scheduled November 29 and then today, December 11 , each time not calling to cancel. Apolonia Zamorano [facility] [place] documented in this encounter Plan of Treatment Not on file documented as of this encounter Visit Diagnoses Not on filedocumented in this encounter Care Teams Cathode Builder Relationship Specialty Start Date End Date Misael Maradiaga DO [address] [place] [address] PCP - General FAMILY PRACTICE 09/28/18 01/13/20 Frank Toure MD [address] [place] [address] [employer] Front Line Leader CARDIOVASCULAR DISEASE 05/30/16 documented as of this encounter
--- OUTSIDE RECORDS SUMMARY | 2024-06-08 05:52 | XMS_ITS | Encounter Summary ---
Author Organization [facility] Address [address] [facility]. [place], [place] [address] [place] [address] Care Team Providers Care Client Services Account Manager Name Role Phone Frank Toure MD Unavailable Kayla Porras NP Primary Care Provider [phone] Encounter Details Date Type Department Care Team (Latest Contact Info) Description 11/21/2017 Abstract [facility] Social History Tobacco Use Types Packs/Day [...] Assessment Author Status No 08/28/2017 2:38 PM KASIT Loraine Staley RN Active * Because of a physical, [...] filedocumented in this encounter Care Teams Client Services Account Manager Relationship Specialty Start Date End Date Kayla Porras NP [address] [place] [id number] PCP - General 06/25/16 09/27/18 Frank Toure MD [address] [place] [id number] [employer] Developer Designer CARDIOVASCULAR DISEASE 05/30/16 documented as of this encounter
--- OUTSIDE RECORDS SUMMARY | 2024-06-08 05:52 | XMS_ITS | Encounter Summary ---
Author Organization [facility] Address [address] [facility]. [place], [place] [address] [place] [address] Care Team Providers Care Scrap Iron Loader Name Role Phone Frank Toure MD Unavailable Misael Maradiaga DO Primary Care Provider + [phone] Reason for Visit * Reason Comments Abnormal Lab Results Encounter Details Date Type Department Care Team (Late st Contact Info) Description 11/23/2018 1:23 PM CDT - 11/23/2018 7:49 PM CDT Emergency [facility] [place] [address] David Kwon PA-C [address] [place] [address] Abnormal Lab Results Discharge Disposition: Home or Self Care (Routine [...] Sign Reading Time Taken Comments Blood Pressure 169/88 11/23/2018 7:00 PM CDT Pulse 75 11/23/2018 7:00 PM CDT Temperature 36.7 ??C (98.1 ??F) 11/23/2018 12:58 PM C DT Respiratory Rate 18 11/23/2018 7:00 PM CDT Oxygen Saturation 100% 11/23/2018 7:00 PM CDT Inhaled Oxygen Concentration - - Weight 64 kg (141 lb) 11/23/2018 12:58 PM CDT Height 180.3 cm (5' 11 ) 11/23/2018 12:58 PM CDT Body Mass Index 19.67 11/23/2018 12:58 PM CDT documented in this encounter Functional [...] PM CDT Loraine Staley RN Active * Because of a physical, mental, or emotional condition, do you have difficulty doing errands alone such as visiting a doctor's office or shopping? Answer Date of Assessment Author Status No 08/28/2017 2:38 PM CDT Loraine Staley RN Active documented as of this encounter Mental Status * Because of a physical, mental, or emotional condition, do you have serious difficulty concentrating, remembering, or making decisions? Answer Entry Date Author Status No 08/28/2017 2:38 PM CDT Loraine Staley RN Active documented in this encounter Discharge Instructions * Discharge Instructions* David Kwon PA-C - 11/23/2018 7:37 PM CDT I recommend you contact your primary care provider tomorrow 11/24/2018 to establish a recheck officevisit. He will need to have a repeat basic metabolic panel to ensure that your sodium has corrected. If you are unable to follow-up you may return to the ED for recheck. Follow-up with your primary care provider as directed for recheck. If you are unable to follow-up you may return to the emergency department if you experience persistent or worsening symptoms. If youfail to follow-up you may risk worsening symptoms that could result in organ damage, organ failure,permanent injury/disability and possibly . If you were prescribed pain medication, use cautionwith this as it may induce drowsiness. Do not operate machinery or drive while using pain medications. Take all your medications as directed or as prescribed. [employer] cares very much for your health and safety, and follow up is very important, even if you are feeling well. If you are having difficulty making a follow up appointment or getting access to your follow up appointment, you may return at any time to the emergency department for further assistance and recheck. * Attachments The following attachments cannot be sent through Care Everywhere. * Hyponatremia ([place]) documented in this encounter Medications at Time of Discharge AMLODIPINE 5 MG tabletIndications :HTN (hypertension) TAKE 1 TABLET(5 MG) BY MOUTH DAILY 90 tablet 2 09/28/2018 9 aspirin 81 MG chewable tabletIndications :Healthcare maintenance Chew 1 tablet (81 mg total) by mouth daily. 90 tablet 09/12/2018 9 clonazePAM 0.5 MG tablet TK 1 T PO Q 8 H PRN. PLEASE CALL OFFICE IF SEIZURES OCCUR AFTER TAKING. 5 08/09/2018 1 Cyanocobalamin (B-12) 1000 MCG Cap Take 1,000 mcg by mouth. 07/11/2017 9 divalproex EC 500 MG tablet Take 500 mg by mouth 2 (two) times daily. 1 08/07/2018 9 folic acid 1 MG tablet Take 1 mg by mouth daily. 9 OXcarbazepine 300 MG tablet Take 450 mg by mouth 2 (two) times daily. 08/09/2018 9 ROWEEPRA 750 MG tablet Take 1,500 mg by mouth 2 (two) times daily. 5 08/05/2018 9 vitamin B1 100 MG tablet Take 100 mg by mouth daily. 9 documented as of this encounter ED Notes * Lianna Choe RN - 11/23/2018 7:49 PM CDT Discharge instructions were discussed with pt during team discharge, pt verbalized understanding and denied any questions. * David Kwon PA-C - 11/23/2018 4:50 PM CDT [place], [place] EMERGENCY DEPARTMENT ENCOUNTER Chief Complaint Chief Complaint Patient presents with ??? Abnormal Lab Results History of Present Illness Bi Tabor is a 58-year-old male presents to ED for evaluation of abnormal lab results. PCP sent him to ED for sodium of 129. Denies vomiting, diarrhea, increased thirst, urinary frequency, headaches, vision trouble, or any other acute complaints. PCP is Dr. Maradiaga. Pt is on [facility]. Medical History ALLERGIES: No Known Allergies MEDICATIONS: Prior to Admission medications Medication Sig Start Date End Date Taking? Authorizing Provider AMLODIPINE 5 MG tablet TAKE 1 TABLET(5 MG) BY MOUTH DAILY 09/28/18 Yes Misael Maradiaga, DO aspirin 81 MG chewable tablet Chew 1 tablet (81 mg total) by mouth daily. 09/12/18 Yes Misael Maradiaga, DO clonazePAM 0.5 MG tablet TK 1 T PO Q 8 H PRN. PLEASE CALL OFFICE IF SEIZURES OCCUR AFTER TAKING. 08/09/18 Yes Doc Abstract Cyanocobalamin (B-12) 1000 MCG Cap Take 1,000 mcg by mouth. 07/11/17 Yes Doc Abstract divalproex EC 500 MG tablet Take 500 mg by mouth 2 (two) times daily. 08/07/18 Yes Doc Abstract folic acid 1 MG tablet Take 1 mg by mouth daily. Yes Doc Abstract OXcarbazepine 300 MG tablet Take 300 mg by mouth. 08/09/18 Yes Doc Abstract ROWEEPRA 750 MG tablet Take 1,500 mg by mouth 2 (two) times daily. 08/05/18 Yes Doc Abstract vitamin B1 100 MG tablet Take 100 mg by mouth daily. Yes Doc Abstract PAST MEDICAL HISTORY: Past Medical [...] of Systems Review of Systems Constitutional: Denies fever, chills Skin: Denies rash. HEENT: Denies sore throat or ear pain. Respiratory: Denies shortness of breath. Cardiovascular: Denies chest pain, palpitations or swelling. GI: Denies abdominal pain, nausea, vomiting, or diarrhea. : Denies dysuria, urinary frequency. Musculoskeletal: Denies back pain/joint pain Neurologic: Denies tingling or sensory changes. Psychiatric: Denies changes in mood See HPI for further details. All systems negative except as marked. Physical Exam Filed Vitals: 11/23/18 1258 11/23/18 1414 11/23/18 1615 11/23/18 1812 BP: 138/77 130/81 (!) 162/93 143/66 Pulse: 79 63 63 70 Resp: 20 18 20 20 Temp: 98.1 ??F (36.7 ??C) SpO2: 100% 98% 98% 100% Weight: 64 kg (141 lb) Height: 5' 11 (1.803 m) Physical Exam Constitutional: Well developed, No acute distress, Non-toxic appearance. Appears stated age Integument: Warm, Dry, No erythema, No rash. HEENT: Normocephalic, Atraumatic, Conjunctiva normal Neck- Normal range of motion, Supple Back- No tenderness Respiratory: Normal breath sounds, No respiratory distress Cardiovascular: Normal heart rate, Normal rhythm GI: Bowel sounds normal, Soft, No tenderness Musculoskeletal: Good ROM, no deformities noted Neurologic: Alert & oriented x 3, No focal deficits noted. Psychiatric: Affect normal, Judgment normal, Mood normal. /pelvic: Deferred Diagnostic Studies / Procedures ELECTROCARDIOGRAMS: No results found for this visit on 11/23/18. LABORATORY STUDIES: Results for orders placed or performed during the hospital encounter of 11/23/18 BASIC METABOLIC PANEL Result Value Ref Range GLUCOSE 81 70 - 99 MG/DL BUN 9 7 - 18 MG/DL CREATININE 0.76 0.7 - 1.3 MG/DL SODIUM 130 (L) 136 - 145 MMOL/L POTASSIUM 3.7 3.5 - 5.1 MMOL/L CHLORIDE 100 100 - 108 MMOL/L CO2 25.5 21 - 32 MMOL/L CALCIUM 8.7 8.5 - 10.1 MG/DL ANION GAP 4.5 (L) 5 - 15 MMOL/L BUN CREATININE RATIO 11.9 6 - 26 eGFR Non-Afr. Amer. >90 >90 ML/MIN/1.73 M2 eGFR Afr. Amer. >90 >90 ML/MIN/1.73 M2 CBC W/DIFF AUTOMATED Result Value Ref Range WBC 5.2 4.5 - 11.0 x10'3/uL RBC 4.42 (L) 4.70 - 6.10 x10'6/uL HGB 14.1 14.0 - 18.0 G/DL HCT 40.5 (L) 43.0 - 54.0 % MCV 91.6 80.0 - 94.0 FL MCH 31.9 (H) 27.0 - 31.0 PG MCHC 34.8 32.0 - 36.0 G/DL RDW 11.6 11.5 - 14.5 % PLT 145 130 - 400 x10'3/uL MPV 11.1 9.3 - 12.2 FL DIFFERENTIAL TYPE AUTOMATED DIFFERENTIAL NEUTROPHILS 40.7 % LYMPHOCYTES 44.8 % MONOCYTES 6.0 % EOSINOPHILS 7.5 % BASOPHILS 0.8 % IMMATURE GRANS 0.2 % ABS. NEUTROPHILS TOTAL 2.11 1.80 - 7.70 x10'3/uL ABS. LYMPHOCYTES 2.32 1.00 - 4.80 x10'3/uL ABS. MONOCYTES 0.31 0.30 - 0.82 x10'3/uL ABS. EOSINOPHILS 0.39 0.04 - 0.54 x10'3/uL ABS. BASOPHILS 0.04 0.01 - 0.08 x10'3/uL ABS. IMMATURE GRANULOCYTES 0.01 0.00 - 0.49 x10'3/uL URINALYSIS Result Value Ref Range Specimen Type URINE CLEAN CATCH COLOR YELLOW TRANSPARENCY CLEAR Specific [place] (U) 1.014 1.001 - 1.030 U PH 6.0 5.0 - 9.0 LEUKOCYTE ESTERASE NEGATIVE NEGATIVE NITRITES NEGATIVE NEGATIVE PROTEIN, URINE NEGATIVE <30 MG/DL URINE GLUCOSE NEGATIVE NEGATIVE MG/DL U KETONES NEGATIVE NEGATIVE MG/DL UROBILINOGEN NEGATIVE NEGATIVE MG/DL Urine Bilirubin NEGATIVE NEGATIVE MG/DL BLOOD NEGATIVE NEGATIVE CULTURE & SENSITIVITY INDICATED? CULTURE IS NOT INDICATED IMAGING STUDIES No orders to display ED Course / Medical Decision Making Plan: IVF, PO challenge Rhythm Strip intepretation (by ED provider): Rhythm: Normal Ventricular rate: 63 Pulse Oximeter interpretation: Saturation: 98 Oxygen device: RA Interpretation: Normal Consultations: ED attending. Will d/c after IVF Progress: Pt alonso IVF well. He has remained stable in ED. Will dc with repeat BMP in 24-48hr. Patient is tolerated liquid p.o. well. She can complains of persistent pain with swallowing. We will check lateral neck x-ray soft tissue plan for DC with GI follow-up. I have discussed today's findings with the patient and provided information regarding the likely diagnosis. The patient has been given information regarding their treatment, follow up and concerning symptoms for which they should seek urgent or emergent attention. I have expressed the the importance of seeking attention should there be any new, or worsening symptoms or persistence of their condition. The patient is stable at discharge and has verbalized understanding of these instructions. Medications sodium chloride 0.9% bolus infusion SOLN 1,000 mL (1,000 mLs Intravenous New Bag 11/23/18 1729) Clinical Impression Hyponatremia (Primary) Current Discharge Medication List Disposition: Discharge Follow-Up: DO Andres SniderWIG [facility] [id number] Call in 1 day FOR RECHECK - to have repeat bloodwork Michaela Thomasno, acting as a scribe, am personally taking down the notes in the presence of Dr.Kevin Elias PA-C. Take no action on this note until reviewed and authenticated by the physician. DAVID KWON PA-C 11/23/2018 David Kwon PA-C 11/27/18 1140 Cosigned by Loretta Murcia MD at 11/28/2018 4:52 PM CDT * David Kwon PA-C - 11/23/2018 1:08 PM CDT [place], [place] EMERGENCY DEPARTMENT ENCOUNTER Medical Screening Examination 11/23/18 1:08 PM Chief Complaint : Abnormal Lab Results HPI : Bi Tabor is a 58-year-old male who presents from PCP after labs today shows sodium 129.Pt denies fluid loss or diarrhea/vomiting. Vital Signs: Filed Vitals: 11/23/18 1258 BP: 138/77 Pulse: 79 Resp: 20 Temp: 98.1 ??F (36.7 ??C) SpO2: 100% Weight: 64 kg (141 lb) Height: 5' 11 (1.803 m) Physical exam: A brief physical exam was completed to facilitate/expedite patient care. Pertinent PE findings: Euvolemic appearing in triage Plan: Necessary labs/imaging/medications ordered to initiate pt care. David Kwon PA-C 11/23/18 1309 Cosigned by Loretta Murcia MD at 11/23/2018 7:06 PM CDT * Meche Luna RN - 11/23/2018 1:01 PM CDT Pt called from main lab after outpatient lab work today showed low sodium. Records indication Na+ 129. Pt reports weakness for several days. documented in this encounter Plan of Treatment Not on file documented as of this encounter Procedures Procedure Name Priority Date/Time Associated Diagnosis Comments URINALYSIS STAT 11/23/2018 2:09 PM CDT BASIC METABOLIC PANEL STAT 11/23/2018 1:47 PM CDT CBC W/DIFF AUTOMATED STAT 11/23/2018 1:47 PM CDT documented in this encounter Results * URINALYSIS (11/23/2018 2:09 PM CDT) SPECIMEN TYPE URINE CLEAN CATCH 11/23/2018 1:56 PM CDT [facility] COLOR (U) YELLOW 11/23/2018 2:37 PM CDT [facility] TRANSPARENCY CLEAR 11/23/2018 2:37 PM CDT [facility] SPECIFIC GRAVITY (U) 1.014 1.001 - 1.030 11/23/2018 2:37 PM CDT [facility] U PH 6.0 5.0 - 9.0 11/23/2018 2:37 PM CDT [facility] LEUKOCYTES (U) NEGATIVE NEGATIVE 11/23/2018 2:37 PM CDT [facility] NITRITES NEGATIVE NEGATIVE 11/23/2018 2:37 PM CDT [facility] PROTEIN (U) NEGATIVE <30 MG/DL 11/23/2018 2:37 PM CDT [facility] URINE GLUCOSE NEGATIVE NEGATIVE MG/DL 11/23/2018 2:37 PM CDT [facility] KETONES MG/DL (U) NEGATIVE NEGATIVE MG/DL 11/23/2018 2:37 PM CDT [facility] UROBILINOGEN NEGATIVE NEGATIVE MG/DL 11/23/2018 2:37 PM CDT [facility] BILIRUBIN (U) NEGATIVE NEGATIVE MG/DL 11/23/2018 2:37 PM CDT [facility] BLOOD (U) NEGATIVE NEGATIVE 11/23/2018 2:37 PM T [facility] CULTURE & SENSITIVITY INDICATED? CULTURE IS NOT INDICATED 11/23/2018 2:37 PM T [facility] URINE SPECIMEN OBTAINED BY CLEAN CATCH PROCEDURE / Unknown 11/23/2018 2:09 PM CDT David Kwon PA-C URINE ORDERABLES Final Result [facility] [address] [place] [address], [place] [phone] * (ABNORMAL) CBC W/DIFF AUTOMATED (11/23/2018 1:47 PM CDT) WBC 5.2 4.5 - 11.0 x10'3/uL 11/23/2018 2:06 PM CDT [facility] RBC 4.42(L) 4.70 - 6.10 x10'6/uL 11/23/2018 2:06 PM CDT [facility] HGB 14.1 14.0 - 18.0 G/DL 11/23/2018 2:06 PM CDT [facility] HCT 40.5(L) 43.0 - 54.0 % 11/23/2018 2:06 PM CDT [facility] MCV 91.6 80.0 - 94.0 FL 11/23/2018 2:06 PM CDT [facility] MCH 31.9(H) 27.0 - 31.0 PG 11/23/2018 2:06 PM CDT [facility] MCHC 34.8 32.0 - 36.0 G/DL 11/23/2018 2:06 PM CDT [facility] RDW 11.6 11.5 - 14.5 % 11/23/2018 2:06 PM CDT [facility] PLT 145 130 - 400 x10'3/uL 11/23/2018 2:06 PM CDT [facility] MPV 11.1 9.3 - 12.2 FL 11/23/2018 2:06 PM CDT [facility] DIFFERENTIAL TYPE AUTOMATED DIFFERENTIAL 11/23/2018 2:06 PM CDT [facility] NEUTROPHILS % 40.7 % 11/23/2018 2:06 PM CDT [facility] LYMPHOCYTES % 44.8 % 11/23/2018 2:06 PM CDT [facility] MONOCYTES % 6.0 % 11/23/2018 2:06 PM CDT [facility] EOSINOPHILS 7.5 % 11/23/2018 2:06 PM CDT [facility] BASOPHILS 0.8 % 11/23/2018 2:06 PM CDT [facility] IMMATURE GRANS % 0.2 % 11/24/19 19 2:06 PM CDT [facility] ABS. NEUTROPHILS TOTAL 2.11 1.80 - 7.70 x10'3/uL 11/23/2018 2:06 PM CDT [facility] ABS. LYMPHOCYTES 2.32 1.00 - 4.80 x10'3/uL 11/23/2018 2:06 PM CDT [facility] ABS. MONOCYTES 0.31 0.30 - 0.82 x10'3/uL 11/23/2018 2:06 PM CDT [facility] ABS. EOSINOPHILS 0.39 0.04 - 0.54 x10'3/uL 11/23/2018 2:06 PM CDT [facility] ABS. BASOPHILS 0.04 0.01 - 0.08 x10'3/uL 11/23/2018 2:06 PM CDT [facility] ABS. IMMATURE GRANULOCYTES 0.01 0.00 - 0.49 x10'3/uL 11/23/2018 2:06 PM CDT [facility] 11/23/2018 1:47 PM CDT David Kwon PA-C LABORATORY Final Result [facility] [address] [place] [address], * (ABNORMAL) BASIC METABOLIC PANEL (11/23/2018 1:47 PM CDT) [facility] GLUCOSE 81 70 - 99 MG/DL 11/23/2018 2:15 PM CDT [facility] BUN 9 7 - 18 MG/DL 11/23/2018 2:15 PM CDT [facility] CREATININE S/P/B 0.76 0.7 - 1.3 MG/DL 11/23/2018 2:15 PM CDT [facility] SODIUM S/P/B 130(L) 136 - 145 MMOL/L 11/23/2018 2:15 PM CDT [facility] POTASSIUM S/P/B 3.7 3.5 - 5.1 MMOL/L 11/23/2018 2:15 PM CDT [facility] CHLORIDE S/P/B 100 100 - 108 MMOL/L 11/23/2018 2:15 PM CDT [facility] CO2 25.5 21 - 32 MMOL/L 11/23/2018 2:15 PM CDT [facility] CALCIUM S/P/B 8.7 8.5 - 10.1 MG/DL 11/23/2018 2:15 PM CDT [facility] ANION GAP 4.5(L) 5 - 15 MMOL/L 11/23/2018 2:15 PM CDT [facility] BUN CREATININE RATIO 11.9 6 - 26 11/23/2018 2:15 PM CDT [facility] EGFR NON-AFR. AMER. >90 >90 ML/MIN/1.7 3 M2 11/23/2018 2:15 PM CDT [facility] EGFR AFR. AMER. >90 >90 ML/MIN/1.7 3 M2 11/23/2018 2:15 PM CDT [facility] Comment: NOTE: eGFR is not calculated for patients <18 years of age. This is an estimated GFR (CKD EPI) and should not be used for calculating drug doses. 11/23/2018 1:47 PM CDT David Kwon PA-C LABORATORY Final Result [facility] [address] [place] [address], documented in this encounter Visit Diagnoses Diagnosis Hyponatremia- Primary Hyposmolality and/or hyponatremia documented in this encounter Administered Medications Inactive Administered Medications - up to 3 most recent administrations Medication Order MAR Action Action Date Dose Rate Site sodium chloride 0.9% bolus infusion SOLN 1,000 mL 1,000 mL, Intravenous, Administer over 15 Minutes, Once, 1 dose, On Marian 11/23/18 at 1615 New Bag 11/23/2018 5:22 PM CDT 1,000 mLs documented in this encounter Active and Recently Administered Medications Times are shown in CDT. Scheduled Medication Order 11/21/2018 11/22/2018 11/23/2018 sodium chloride 0.9% bolus infusion SOLN 1,000 mL (COMPLETED) 1,000 mL, Intravenous, Administer over 15 Minutes, Once, 1 dose, On Marian 11/23/18 at 1615 1722 (New Bag - Prov ider: Lianna Choe RN)1948 (Infusion Stop Time - Provider: Lianna Choe RN) documented in this encounter Care Teams Scrap Iron Loader Relationship Specialty Start Date End Date Misael Maradiaga DO [address] [place] [address] PCP - General FAMILY PRACTICE 09/28/18 01/13/20 Frank Toure MD [address] [place] [address] [employer] Global Sourcing Manager CARDIOVASCULAR DISEASE 05/30/16 documented as of this encounter
--- OUTSIDE RECORDS SUMMARY | 2024-06-08 05:52 | XMS_ITS | Encounter Summary ---
Author Organization [facility] Address [address] [place], [place] [id number] [place] [id number] Care Team Providers Care Stock Worker Name Role Phone Frank Toure MD Unavailable Josse Maradiaga DO Primary Care Provider + [phone] Reason for Referral * (Routine) - Canceled Specialty Diagnoses / Procedures Referred By Contac t Referred To Contact Procedures OT eval and treat Zulma Gasca NP 1 [place] [address] Phone: tel: [phone] fax: Referral ID Status Reason Start Date Expiration Date V isits Requested Visits Authorized [id number] Canceled 11/30/2018 01/01/2020 1 1 * (Routine) - Canceled Specialty Diagnoses / Procedures Referred By Contac t Referred To Contact Procedures PT eval and treat Zulma Gasca NP 1 [place] [address] Phone: tel: [phone] fax: Referral ID Status Reason Start Date Expiration Date V isits Requested Visits Authorized [id number] Canceled 11/30/2018 01/01/2020 1 1 * Imaging (Emergency) - Closed Specialty Diagnoses / Procedures Referred By Anabella dan Referred To Contact RADIOLOGY Procedures CT HEAD WO CON Demetrius Anglin MD [address] [address] Phone: tel: fax: Referral ID Status Reason Start Date Expiration Date Visits Re quested Visits Authorized [id number] Closed 11/29/2018 12/31/2019 1 1 Reason for Visit * Reason Comments Weakness * Auth/Cert Specialty Diagnoses / Procedures Referred By Anabella dan Referred To Contact Diagnoses Urinary retention Hyponatremia UTI (urinary tract infection) Referral ID Status Reason Start Date Expiration Date Visits Re quested Visits Authorized [id number] 1 1 Encounter Details Date Type Department Care Team (Late st Contact Info) Description 11/29/2018 1:02 PM CDT - 12/04/2018 1:30 PM CDT Hospital Encounter [facility] Med/Surg [address] [place] [address] Demetrius Anglin MD [address] [id number] Emmanuel Morel MD [address] [place] [address] Zulma Gasca NP 1 [place] [address] [phone] (Work) Cher Law NP 1 [place] [address] Weakness Discharge Disposition: Inpatient Rehab Facility Social History Tobacco Use Types Packs/Day [...] Sign Reading Time Taken Comments Blood Pressure 132/69 12/04/2018 1:05 PM CDT Pulse 59 12/04/2018 1:05 PM CDT Temperature 36.7 ??C (98 ??F) 12/04/2018 1:05 PM CDT Respiratory Rate 19 12/04/2018 1:05 PM CDT Oxygen Saturation 100% 12/04/2018 1:05 PM CDT Inhaled Oxygen Concentration - - Weight 60.1 kg (132 lb 7.9 oz) 12/03/2018 5:00 A M CDT Height 180.3 cm (5' 11 ) 11/29/2018 12:44 PM CDT Body Mass Index 18.48 11/29/2018 12:44 PM CDT documented in this encounter Functional Status * Question Answer Date of Assessment Author Status Do you have serious difficulty walking or climbing stairs? Yes 11/29/2018 5:53 PM CDT Meggan Downing RN A ctive * Question Answer Date of Assessment Author Status Do you have difficulty dressing or bathing? No 11/29/2018 5:53 PM CDT Meggan Downing RN Active Because of a physical, mental, or emotional condition, do you have difficulty doing errands alone such as visiting a doctor's office or shopping? Yes 11/29/2018 5:53 PM CDT Meggan Downing RN Ac tive * RETIRED Are you deaf or do you have serious difficulty hearing Answer Date of Assessment Author Status No 11/29/2018 5:53 PM CDT Activ e * RETIRED Are you blind or do you have serious difficulty seeing, even when wearing glasses? Answer Date of Assessment Author Status No 11/29/2018 5:53 PM CDT Activ e * Do you have serious difficulty walking or climbing stairs? Answer Date of Assessment Author Status Yes 11/29/2018 5:53 PM CDT Meggan Downing RN Active * Do you have difficulty dressing or bathing? Answer Date of Assessment Author Status No 11/29/2018 5:53 PM CDT Meggan Downing RN Active * Because of a physical, mental, or emotional condition, do you have difficulty doing errands alone such as visiting a doctor's office or shopping? Answer Date of Assessment Author Status Yes 11/29/2018 5:53 PM CDT Meggan Downing RN Active documented as of this encounter Mental Status * Question Answer Entry Date Author Status Because of a physical, mental, or emotional condition, do you have serious difficulty concentrating, remembering, or making decisions? Yes 11/29/2018 5:53 PM CDT Meggan Downing RN Active * Because of a physical, mental, or emotional condition, do you have serious difficulty concentrating, remembering, or making decisions? Answer Entry Date Author Status Yes 11/29/2018 5:53 PM KASIT Meggan Downing RN Active documented in this encounter Discharge Summaries * Cher Hoskins NP - 12/04/2018 9:24 AM CDT Hospitalist Discharge Summary Patient ID: Mojgan Tabor. male. 1960. Admit date: 11/29/2018 1:02 PM Discharge date and time: 12/04/18 Admitting Physician: Emmanuel Morel MD Primary Care Physician: JOSSE MARADIAGA DO Discharge Physician: CHER HOSKINS NP Discharge Diagnosis: acute encephalopathy Hospital Course: Mojgan Tabor is a 58-year-old male with past medical history significant for CVA, HTN, HLD, and seizures who presented 11/29/18 with weakness and disorientation that worsened day of presentation. Pt is a poor historian and most information is provided by sister and [id number]. Few days prior to admission, pt has experienced increased weakness and inability to stand as well as disorientation. He has experienced some headaches, but denied nausea or decreased p.o.intake. He was seen in the ER last week on 11/23/18 and found to be hyponatremic. He was given 1L IV ns and discharged home. Since then, his weakness has not improved. The last few days, he has had more difficulty urinating. [facility] neurologist changed meds in September, and family is unsure if he is using his pillbox correctly or taking medications as prescribed. Family reports he drinks >8 bottles of water daily. He is on keppra for seizure history. PCP is Dr. Maradiaga. The patient complains about urinary frequency however has urinary hesitancy and decreased urine stream.?? The patient's sister was present at time of history and physical. He is having increasing weakness and reportedly decreasing weight. The patient does not participate in questioning any looks rather bewildered during this interview. Patient was admitted to the hospital, workup essentially negative. Recent CVA with obvious cognitive difficulties. UA unremarkable, hyponatremia resolved. Patient clinically improved with supportive care. Patient was accepted to inpatient rehab. Insurance approved inpatient rehab x1 week. Consider SNF placement if no improvement with inpatient rehab. At time of discharge patient was hemodynamically stable. Consults: Discharge Exam: Filed Vitals: 12/03/18 0500 12/03/18 1253 12/03/18 2048 12/04/18 0449 BP: 151/85 129/79 132/71 144/84 Pulse: 63 61 61 66 Resp: 18 19 18 20 Temp: 97.5 ??F (36.4 ??C) 97.9 ??F (36.6 ??C) 98.3 ??F (36.8 ??C) 97.7 ??F (36.5 ??C) TempSrc: Oral Oral Oral SpO2: 100% 100% 100% 99% Weight: 60.1 kg (132 lb 7.9 oz) Height: GENERAL: No acute distress, breathing comfortably on room air. -EYES: Extraocular movements intact -ENT: Neck supple, Septum is midline. -LUNG: Clear to auscultation bilaterally, No wheezes, No crackles -CVS: Regular rate rhythm, S1 and S2 normal, No murmurs -ABDOMEN: Soft, nondistended, Nontender, Bowel sounds observed -EXT: no lower Ext edema. -NEURO: A/Ox3, cannot recall recent event, no focal deficits, generalized weakness -SKIN: Skin color, texture, turgor normal. No rashes or lesions Code Status: Full Code Discharge Medications: Medication List START taking these medications atorvastatin 20 MG tablet Commonly known as: LIPITOR Take 1 tablet (20 mg total) by mouth daily. tamsulosin 0.4 MG Caps Commonly known as: FLOMAX Take 1 capsule (0.4 mg total) by mouth daily. CONTINUE taking these medications amlodipine 5 MG tablet Commonly known as: NORVASC TAKE 1 TABLET(5 MG) BY MOUTH DAILY aspirin 81 MG chewable tablet Chew 1 tablet (81 mg total) by mouth daily. clonazePAM 0.5 MG tablet Commonly known as: KLONOPIN divalproex EC 500 MG tablet Commonly known as: DEPAKOTE folic acid 1 MG tablet Commonly known as: FOLVITE gabapentin 300 MG capsule Commonly known as: NEURONTIN levETIRAcetam 1000 MG tablet Commonly known as: KEPPRA OXcarbazepine 300 MG tablet Commonly known as: TRILEPTAL vitamin B1 100 MG tablet Commonly known as: THIAMINE Where to Get Your Medications You can get these medications from any pharmacy Bring a paper prescription for each of these medications ?? atorvastatin 20 MG tablet ?? tamsulosin 0.[address] Head Wo Con 11/29/2018 EXAMINATION: CT of the head without contrast DATE: 11/29/2018 CLINICAL HISTORY: Altered mental statusCOMPARISON: 18 06/06/2017 TECHNIQUE: CT examination of the head without contrast was performed with axial images obtained. A dose lowering technique was used for this procedure, which may include, but is not limited to, dose reduction technique, automated exposure control, the use of iterative reconstruction, and ALARA (As Low As Reasonably Achievable) / Image Gently techniques. FINDINGS: No mass effect or shift of midline is seen. No hemorrhage is seen. Advanced atrophy is reidentified with prominent ventricular morphology and prominent subarachnoid space. Advanced periventricular white matterlow- density changes and prominent septal malacia changes in the right occipital lobe lobe are reidentified. Moderate vascular calcifications are identified. Images globes remain intact. Imaged paranasal air sinuses demonstrate no opacification. Imaged mastoid air cells demonstrate relatively symmetric aeration. IMPRESSION: Noncontrast CT of the brain demonstrates no significant time interval change or acute findings as detailed above. Advanced atrophy and periventricular white matter region ischemic changesis reidentified. Encephalomalacic change in the right occipital lobe are identified. Follow-up as clinically applicable. ?? Xr Chest Portable 11/29/2018 Exam: Chest x-ray Comparison 03/24/2017 INDICATION: Altered mental status TECHNIQUE: One view FINDINGS: Heart size and pulmonary vessels are within normal limits. Lungs are clear. No interstitial edema, hyperinflation, or pleural fluid. IMPRESSION: Normal exam. Interpreted By: Blair Au MD, 11/29/2018 3:15 PM ?? EKG: Results for orders placed or performed during the hospital encounter of 11/29/18 ECG 12 lead ?? Narrative ?? 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 Encephalopathy Acute This appears to be recurrent during multiple admissions to the emergency room another hospital facilities Cannot ascertain whether this is medication side effect from appropriate dosages or inadequate or overdosage by patient because he cannot remember to take his medications. ?? UA negative With hyponatremia on admission- now improved PT/OT recommending IP rehab ?? Disposition: IP Rehab consulted and accepted pending insurance auth, denied- appealed, now approved x1 week, consider SNF if no improvement . ?? 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 Hyperlipidemia Continue home meds and monitor ?? UTI: As noted above No evidence of infection Urine cultures from OSH last month were negative growth as well with similar findings urinalysis Symptoms may be due to chronic urinary retention Flomax Paredes removed and voiding well ?? Seizure: History of generalized seizure disorder [facility] confusion from family about dosages of his medications because he is got multiple pill bottles at home. Verification of levetiracetam dose per neurologist noted ?? Disposition: Inpatient rehab Followup Lab Orders: Time Spent on Discharge 35 mins Signed: CHER HOSKINS NP Cosigned by Georges Restrepo MD at 12/04/2018 7:04 PM CDT documented in this encounter Medications at Time of Discharge vitamin B-1 100 MG TabIndications:Se izure ([facility]) Take 1 tablet (100 mg total) by mouth daily. 30 tablet 12/13/2018 acetaminophen 325 MG tabletIndications :Seizure ([facility]) Take 2 tablets (650 mg total) by mouth every 4 (four) hours as needed. 30 tablet 12/12/2018 9 AMLODIPINE 5 MG tabletIndications :HTN (hypertension) TAKE 1 TABLET(5 MG) BY MOUTH DAILY 90 tablet 2 09/28/2018 9 amlodipine 5 MG tabletIndications :Seizure ([facility]/HCC) Take 1 tablet (5 mg total) by mouth daily. 30 tablet 12/13/2018 9 aspirin 81 MG chewable tabletIndications :Healthcare maintenance Chew 1 tablet (81 mg total) by mouth daily. 90 tablet 09/12/2018 9 aspirin 81 MG chewable tabletIndications :Seizure ([facility]) Chew 1 tablet (81 mg total) by mouth daily. 30 tablet 12/13/2018 9 atorvastatin 20 MG tablet Take 1 tablet (20 mg total) by mouth daily. 30 tablet 12/04/2018 9 atorvastatin 20 MG tabletIndications :Seizure ([facility]) Take 1 tablet (20 mg total) by mouth daily. 30 tablet 12/13/2018 9 clonazePAM 0.5 MG tablet TK 1 T PO Q 8 H PRN. PLEASE CALL OFFICE IF SEIZURES OCCUR AFTER TAKING. 5 08/09/2018 1 divalproex EC 500 MG tablet Take 500 mg by mouth 2 (two) times daily. 1 08/07/2018 9 divalproex EC 500 MG tabletIndications :Seizure (CMS/HCC HHS/HCC) Take 1 tablet (500 mg total) by mouth 2 (two) times daily. 60 tablet 12/12/2018 9 folic acid 1 MG tablet Take 1 mg by mouth daily. 9 folic acid 1 MG tabletIndications :Seizure (CMS/HCC HHS/HCC) Take 1 tablet (1 mg total) by mouth daily. 30 tablet 12/13/2018 9 gabapentin 300 MG capsule Take 300 mg by mouth 3 (three) times daily. 9 levETIRAcetam 1000 MG tablet Take 2,000 mg by mouth 2 (two) times daily. 9 levETIRAcetam 1000 MG tabletIndications :Seizure (CMS/HCC HHS/HCC) Take 2 tablets (2,000 mg total) by mouth 2 (two) times daily. 60 tablet 12/12/2018 2 OXcarbazepine 150 MG tabletIndications :Seizure (CMS/HCC HHS/HCC) Take 3 tablets (450 mg total) by mouth 2 (two) times daily. 60 tablet 12/12/2018 0 OXcarbazepine 300 MG tablet Take 450 mg by mouth 2 (two) times daily. 08/09/2018 9 tamsulosin 0.4 MG Cap Take 1 capsule (0.4 mg total) by mouth daily. 30 capsule 12/04/2018 9 tamsulosin 0.4 MG CapIndications:Se izure (CMS/HCC HHS/HCC) Take 1 capsule (0.4 mg total) by mouth daily. 30 capsule 12/13/2018 9 vitamin B1 100 MG tablet Take 100 mg by mouth daily. 9 documented as of this encounter Progress Notes * Jaylyn Brown, DENI - 12/04/2018 1:10 PM CDT PT IS DC THIS DATE TO INPT REHAB AFTER THE DECISION WAS OVERTURNED FOR [facility] TO NOW COVER IN PT REHAB FOLLOWING THE APPEAL. PER HOMAR WITH INPT REHAB PT IS ACCEPTED FOR ADMIT THIS DATE. PT SEEN AND CONFIRMED AGREEMENT TO GO TO INPT REHAB. RN AWARE OF PLANS AND SW ACTIONS. NO FURTHER NEEDS NOTED NOR ACTIONS PLANNED. SW COMPLETE AND CASE CLOSED. * Dimple Cavazos PTA - 12/04/2018 10:55 AM CDT 12/04/18 0900 Therapy Visit Ordering Provider BOUCHRA Gasca Subjective Rm [id number] Pt states he is going to Rehab today Reason for admission Acute encephalopathy, weakness Relevant Comorbidities/ Personal Factors to PT CVA WITH L SIDE WEAKNESS, SEIZURES, FALLS, HTN Verified Two Patient Identifiers Yes Patient consents to therapy Yes Time Calculation Start Time 1017 Stop Time 1055 Time Calculation (min) 38 min Precautions General Precautions Bed Alarm;Chair Alarm;Fall Risk;Other(comment) Instructed on Precautions Yes;Needs reinforcement and education Pain Pain No Activity Tolerance Endurance Tolerates 45 min activity with rests Bed Mobility Rolling Modified independence Supine to Sit Modified independence TRANSFERS Sit to Stand SBA/supervision Gait Gait Assistance SBA/supervision Assistive Device 2 Wheeled walker Ambulation Distance (Feet) 230 Exercises Other (Comment) instructed in rom and strengthening exercises Patient/Family Training Bed Mobility x Transfer Training x Gait Training x Precautions x Exercise Program x Recommendation PT Recommendation Inpatient Rehab Plan If this is the last treatment note,it will serve as the discharge summary Yes End of Session Safety End of Session Safety Chair alarm set/activated;Call light within reach;Nursing aware of session * GREY Menendez - 12/04/2018 8:57 AM CDT 12/04/18 0800 Therapy Visit OT Received On 12/04/18 Reason for admission Acute encephalopathy, weakness Comorbidities Relevant to OT Seizures, HZTN, HLD, CVA with L side deficits, Falls Ordering Provider BOUCHRA Gasca Verified Two Patient Identifiers Yes Patient consents to therapy Yes Time Calculation Start Time 0840 Stop Time 0851 Time Calculation (min) 11 min Precautions General Precautions Bed Alarm;Chair Alarm;Fall Risk;Other(comment) Instructed on Precautions Yes;Needs reinforcement and education Subjective Subjective RM 322: PT STATES HE'S ALREADY BEEN WASHED UP ; AGREEABLE TO THER SESSION Pain Pain No Activity Tolerance Endurance Tolerates 10 - 20 min activity with rests Cognition Overall Cognitive Status Impaired Functional Transfers Sit to Stand Min assist Toilet Transfers Min assist (STND TOILET ; GRAB BARS ; WW) Functional Mobility PT COMPLETED FUNC MOB AROUND ROOM USING WW MIN ASSIST FOR SAFETY/ BALANCE Patient/Family Training Self Cares X Transfer Training X Precautions X Other (Comment) ONE TO ONE ;RECEPTIVE Recommendation OT Recommendation Inpatient Rehab;OT during Hospitalization Plan OT Treatment/Intervention Self-care training;Therapeutic exercises;Therapeutic activities;Neuromuscular re-education;Patient/family training;Functional activity;Safety Progress Progressing toward goals OT Frequency 3 times/week;5 times/week OT plan for next session ADLS / XFERS / THER EX If this is the last treatment note, it will serve as the discharge summary Yes End of Session Safety End of Session Safety Chair alarm set/activated PT WOULD BE APPROPRIATE FOR [facility] 2/2 IP REHAB DENIED * Cher Hoskins NP - 12/03/2018 9:49 AM CDT Hospitalist Daily Progress Note Subjective Mr. Tabor is resting in chair when evaluated this AM. He is A/Ox 3. IP rehab stay was denied, appeal process pending. He denies chest pain, or shortness of breath. He denies nausea, or vomiting. Usesa walker to ambulate. Working with PT. Objective Filed Vitals: 12/02/18 0500 12/02/18 1526 12/02/18 1914 12/03/18 0500 BP: 147/76 136/73 130/86 151/85 Pulse: 63 72 75 63 Resp: 18 18 18 18 Temp: 98.2 ??F (36.8 ??C) 98.4 ??F (36.9 ??C) 98.3 ??F (36.8 ??C) 97.5 ??F (36.4 ??C) TempSrc: Oral Oral Oral SpO2: 100% 100% 100% 100% Weight: 60.2 kg (132 lb 11.5 oz) 60.1 kg (132 lb 7.9 oz) Height: Intake/Output 24H Total: Intake/Output Summary (Last 24 hours) at 12/03/2018 0949 Last data filed at 12/03/2018 0929 Gross per 24 hour Intake 630 ml Output 825 ml Net -195 ml -GENERAL: No acute distress, breathing comfortably on room air. -EYES: Extraocular movements intact -ENT: Neck supple, Septum is midline. -LUNG: Clear to auscultation bilaterally, No wheezes, No crackles -CVS: Regular rate rhythm, S1 and S2 normal, No murmurs -ABDOMEN: Soft, nondistended, Nontender, Bowel sounds observed -EXT: no lower Ext edema. -NEURO: A/Ox3, cannot recall recent event, no focal deficits, generalized weakness -SKIN: Skin color, texture, turgor normal. No rashes or lesions Medications ??? amlodipine 5 mg Oral Daily ??? aspirin 81 mg Oral Daily ??? divalproex EC 500 mg Oral BID ??? folic acid 1 mg Oral Daily ??? gabapentin 300 mg Oral TID ??? heparin (porcine) 5,000 Units Subcutaneous 2 times per day ??? levETIRAcetam 2,000 mg Oral BID ??? OXcarbazepine 450 mg Oral BID ??? tamsulosin 0.4 mg Oral Daily ??? vitamin B1 100 mg Oral Daily Labs, Imaging, Other Studies Recent Labs Lab 11/29/18 1307 11/30/18 0733 12/01/18 0857 12/02/18 0957 WBC 5.4 5.8 5.3 5.3 RBC 4.21* 4.04* 4.09* 4.45* HGB 13.7* 13.2* 13.4* 14.3 HCT 38.1* 37.4* 38.5* 42.8* MCV 90.5 92.6 94.1* 96.2* MCH 32.5* 32.7* 32.8* 32.1* MCHC 36.0 35.3 34.8 33.4 PLT 178 173 186 211 RDW 11.9 11.8 12.0 12.3 MPV 10.5 10.6 10.8 11.1 PERNEU 50.0 44.0 42.7 38.7 PERLYM 33.5 39.0 39.4 43.7 PERMON 7.2 6.4 7.5 6.4 LYMC 1.82 2.25 2.09 2.32 MONOC 0.39 0.37 0.40 0.34 EOSC 0.45 0.57* 0.51 0.53 BASOC 0.03 0.03 0.03 0.04 DTYPE AUTOMATED DIFFERENTIAL AUTOMATED DIFFERENTIAL AUTOMATED DIFFERENTIAL AUTOMATED DIFFERENTIAL Recent Labs Lab 11/29/18 1307 11/30/18 0733 12/01/18 0857 12/02/18 0957 NA 126* 131* 136 137 K 4.0 3.9 4.0 3.8 CL 95* 101 105 103 CO2 24.7 24.5 25.8 28.9 AGAP 6.3 5.5 5.2 5.1 BUN 8 6* 6* 9 CR 0.85 0.64* 0.79 0.90 BUNCREATININ 9.4 9.4 7.6 10.1 GFRNON >90 >90 >90 >90 GFR >90 >90 >90 >90 GLU 90 81 121* 98 CA 8.8 8.3* 8.6 9.3 TP 7.2 -- -- -- ALB 4.2 -- -- -- TBIL 0.5 -- -- -- ALKP 67 -- -- -- AST 33 -- -- -- ALT 31 -- -- -- No results for input(s): CHOL, TRI, HDL, LDL, HGBA1C, TSH in the last 168 hours. No results for input(s): APTT, INR, PTT in the last 168 hours. No results for input(s): TROP, TROPIWB, CKMB, CPK in the last 168 hours. No results for input(s): LACTICACID, PROCT in the last 168 hours. No results for input(s): PH, PCO2, PO2, [id number], BICARBWB, BASEDEFICIT, BASEEXCESS in the [id number] hours. No results found for this or any previous visit. Imaging Ct Head Wo Con 11/29/2018 EXAMINATION: CT of the head without contrast DATE: 11/29/2018 CLINICAL HISTORY: Altered mental statusCOMPARISON: 18 06/06/2017 TECHNIQUE: CT examination of the head without contrast was performed with axial images obtained. A dose lowering technique was used for this procedure, which may include, but is not limited to, dose reduction technique, automated exposure control, the use of iterative reconstruction, and ALARA (As Low As Reasonably Achievable) / Image Gently techniques. FINDINGS: No mass effect or shift of midline is seen. No hemorrhage is seen. Advanced atrophy is reidentified with prominent ventricular morphology and prominent subarachnoid space. Advanced periventricular white matterlow- density changes and prominent septal malacia changes in the right occipital lobe lobe are reidentified. Moderate vascular calcifications are identified. Images globes remain intact. Imaged paranasal air sinuses demonstrate no opacification. Imaged mastoid air cells demonstrate relatively symmetric aeration. IMPRESSION: Noncontrast CT of the brain demonstrates no significant time interval change or acute findings as detailed above. Advanced atrophy and periventricular white matter region ischemic changesis reidentified. Encephalomalacic change in the right occipital lobe are identified. Follow-up as clinically applicable. Xr Chest Portable 11/29/2018 Exam: Chest x-ray Comparison 03/24/2017 INDICATION: Altered mental status TECHNIQUE: One view FINDINGS: Heart size and pulmonary vessels are within normal limits. Lungs are clear. No interstitial edema, hyperinflation, or pleural fluid. IMPRESSION: Normal exam. 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1960 Requested By: DEMETRIUS ANGLIN Order Number: [id number] Maureen MD: Portillo Nicolas Measurements Intervals [place]wind Rate: 68 P: 70 AZ: 178 QRS: 24 QRSD: 93 T: 65 QT: 379 QTc: 406 Interpretive Statements SINUS RHYTHM ANTEROSEPTAL MYOCARDIAL INFARCTION, OF INDETERMINATE AGE Compared to ECG 06/06/2017 16:47:33 No significant changes Assessment & Plan Encephalopathy Acute This appears to be recurrent during multiple admissions to the emergency room another hospital facilities Cannot ascertain whether this is medication side effect from appropriate dosages or inadequate or overdosage by patient because he cannot remember to take his medications. UA negative With hyponatremia on admission- now improved PT/OT recommending IP rehab Disposition: IP Rehab consulted and accepted pending insurance auth, denied- appealing process pending. 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 Hyperlipidemia Continue home meds and monitor ?? UTI: As noted above No evidence of infection Urine cultures from OSH last month were negative growth as well with similar findings urinalysis Symptoms may be due to chronic urinary retention Flomax Paredes removed and voiding well ?? Seizure: History of generalized seizure disorder [facility] confusion from family about dosages of his medications because he is got multiple pill bottles at home. Verification of levetiracetam dose per neurologist noted ?? CHER HOSKINS NP Cosigned by Georges Restrepo MD at 12/03/2018 9:48 PM CDT * Shakila Isaacs LCSW - 12/02/2018 1:06 PM CDT This SW had lengthy discussion with pt this date and pt's brother came in for part of discussion. This SW inquired about dc plans should IP rehab not approve. This SW discussed SNF vs home with [facility]. Pt states he's been at [facility] previously following his stroke and did okay there but would really not want to go back to a SNF again. This SW discussed about [facility] or [facility] as options that take [facility]. Pt does not seem to care which facility but keeps stating [facility]. This SW sent referrals to [facility] and [facility] this date as back up. This SW also inquired with [facility] whether they[facility] go to [facility]. Pt's IP rehab status is at peer to peer level completed today but will not hear back until Tuesday per message at [facility]. No other needs noted, will await IP rehab appeal decision. * Cher Hoskins NP - 12/02/2018 12:44 PM CDT Hospitalist Daily Progress Note Subjective Mr. Tabor is resting in chair when evaluated this AM. He is A/Ox 3. IP rehab stay was denied, will appeal. He denies chest pain, or shortness of breath. He denies nausea, or vomiting. He tells me hisgirlfriend last year, he is at home alone. Uses a walker to ambulate. Objective Filed Vitals: 12/01/18 0547 12/01/18 1445 12/01/18 2030 12/02/18 0500 BP: 155/73 136/79 162/84 147/76 Pulse: 66 77 78 63 Resp: 20 18 18 18 Temp: 97.6 ??F (36.4 ??C) 97.9 ??F (36.6 ??C) 97.5 ??F (36.4 ??C) 98.2 ??F (36.8 ??C) TempSrc: Oral Oral Oral SpO2: 100% 100% 97% 100% Weight: 60.2 kg (132 lb 11.5 oz) Height: Intake/Output 24H Total: Intake/Output Summary (Last 24 hours) at 12/02/2018 1245 Last data filed at 12/02/2018 0245 Gross per 24 hour Intake 400 ml Output 1225 ml Net -825 ml -GENERAL: No acute distress, breathing comfortably on room air. -EYES: Extraocular movements intact -ENT: Neck supple, Septum is midline. -LUNG: Clear to auscultation bilaterally, No wheezes, No crackles -CVS: Regular rate rhythm, S1 and S2 normal, No murmurs, -ABDOMEN: Soft, nondistended, Nontender, Bowel sounds observed -EXT: no lower Ext edema. -NEURO: A/Ox3, cannot recall recent event, no focal deficits, generalized weakness -SKIN: Skin color, texture, turgor normal. No rashes or lesions Medications ??? amlodipine 5 mg Oral Daily ??? aspirin 81 mg Oral Daily ??? divalproex EC 500 mg Oral BID ??? folic acid 1 mg Oral Daily ??? gabapentin 300 mg Oral TID ??? heparin (porcine) 5,000 Units Subcutaneous 2 times per day ??? levETIRAcetam 2,000 mg Oral BID ??? OXcarbazepine 450 mg Oral BID ??? tamsulosin 0.4 mg Oral Daily ??? vitamin B1 100 mg Oral Daily Labs, Imaging, Other Studies Recent Labs Lab 11/29/18 1307 11/30/1873212/01/18 0857 12/02/18 0957 WBC 5.4 5.8 5.3 5.3 RBC 4.21* 4.04* 4.09* 4.45* HGB 13.7* 13.2* 13.4* 14.3 HCT 38.1* 37.4* 38.5* 42.8* MCV 90.5 92.6 94.1* 96.2* MCH 32.5* 32.7* 32.8* 32.1* MCHC 36.0 35.3 34.8 33.4 PLT 178 173 186 211 RDW 11.9 11.8 12.0 12.3 MPV 10.5 10.6 10.8 11.1 PERNEU 50.0 44.0 42.7 38.7 PERLYM 33.5 39.0 39.4 43.7 PERMON 7.2 6.4 7.5 6.4 LYMC 1.82 2.25 2.09 2.32 MONOC 0.39 0.37 0.40 0.34 EOSC 0.45 0.57* 0.51 0.53 BASOC 0.03 0.03 0.03 0.04 DTYPE AUTOMATED DIFFERENTIAL AUTOMATED DIFFERENTIAL AUTOMATED DIFFERENTIAL AUTOMATED DIFFERENTIAL Recent Labs Lab 11/29/18 1307 11/30/18 0733 12/01/18 0857 12/02/18 0957 NA 126* 131* 136 137 K 4.0 3.9 4.0 3.8 CL 95* 101 105 103 CO2 24.7 24.5 25.8 28.9 AGAP 6.3 5.5 5.2 5.1 BUN 8 6* 6* 9 CR 0.85 0.64* 0.79 0.90 BUNCREATININ 9.4 9.4 7.6 10.1 GFRNON >90 >90 >90 >90 GFR >90 >90 >90 >90 GLU 90 81 121* 98 CA 8.8 8.3* 8.6 9.3 TP 7.2 -- -- -- ALB 4.2 -- -- -- TBIL 0.5 -- -- -- ALKP 67 -- -- -- AST 33 -- -- -- ALT 31 -- -- -- No results for input(s): CHOL, TRI, HDL, LDL, HGBA1C, TSH in the last 168 hours. No results for input(s): APTT, INR, PTT in the last 168 hours. No results for input(s): TROP, TROPIWB, CKMB, CPK in the last 168 hours. No results for input(s): LACTICACID, PROCT in the last 168 hours. No results for input(s): PH, PCO2, PO2, [id number], BICARBWB, BASEDEFICIT, BASEEXCESS in the [id number] hours. No results found for this or any previous visit. Imaging Ct Head Wo Con 11/29/2018 EXAMINATION: CT of the head without contrast DATE: 11/29/2018 CLINICAL HISTORY: Altered mental statusCOMPARISON: 18 06/06/2017 TECHNIQUE: CT examination of the head without contrast was performed with axial images obtained. A dose lowering technique was used for this procedure, which may include, but is not limited to, dose reduction technique, automated exposure control, the use of iterative reconstruction, and ALARA (As Low As Reasonably Achievable) / Image Gently techniques. FINDINGS: No mass effect or shift of midline is seen. No hemorrhage is seen. Advanced atrophy is reidentified with prominent ventricular morphology and prominent subarachnoid space. Advanced periventricular white matterlow- density changes and prominent septal malacia changes in the right occipital lobe lobe are reidentified. Moderate vascular calcifications are identified. Images globes remain intact. Imaged paranasal air sinuses demonstrate no opacification. Imaged mastoid air cells demonstrate relatively symmetric aeration. IMPRESSION: Noncontrast CT of the brain demonstrates no significant time interval change or acute findings as detailed above. Advanced atrophy and periventricular white matter region ischemic changesis reidentified. Encephalomalacic change in the right occipital lobe are identified. Follow-up as clinically applicable. Xr Chest Portable 11/29/2018 Exam: Chest x-ray Comparison 03/24/2017 INDICATION: Altered mental status TECHNIQUE: One view FINDINGS: Heart size and pulmonary vessels are within normal limits. Lungs are clear. No interstitial edema, hyperinflation, or pleural fluid. IMPRESSION: Normal exam. 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1960 Requested By: DEMETRIUS ANGLIN Order Number: [id number] Reading MD: Portillo Nicolas Measurements Intervals [place] Rate: 68 P: 70 [place]: 178 QRS: 24 QRSD: 93 T: 65 QT: 379 QTc: 406 Interpretive Statements SINUS RHYTHM ANTEROSEPTAL MYOCARDIAL INFARCTION, OF INDETERMINATE AGE Compared to ECG 06/06/2017 16:47:33 No significant changes Assessment & Plan Encephalopathy Acute This appears to be recurrent during multiple admissions to the emergency room another hospital facilities Cannot ascertain whether this is medication side effect from appropriate dosages or inadequate or overdosage by patient because he cannot remember to take his medications. UA negative With hyponatremia on admission- now improved PT/OT recommending IP rehab Disposition: IP Rehab consulted and accepted pending insurance auth, denied-appealing. 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 Hyperlipidemia Continue home meds and monitor ?? UTI: As noted above No evidence of infection Urine cultures from OSH last month were negative growth as well with similar findings urinalysis Symptoms may be due to chronic urinary retention Flomax Paredes removed and voiding well ?? Seizure: History of generalized seizure disorder and [facility] is confusion from family about dosages of his medications because he is got multiple pill bottles at home. Verification of levetiracetam dose per neurologist noted ?? CHER HOSKINS NP Cosigned by Shima Zhao MD at 12/02/2018 6:32 PM CDT * Dimple Cavazos, FOREIGN BROADCAST SPECIALIST - 12/02/2018 10:36 AM CDT 12/02/18 0900 Therapy Visit Ordering Provider BOUCHRA Gasca Subjective Rm 322 Pt state he is ready for therapy Reason for admission Acute encephalopathy, weakness Relevant Comorbidities/ Personal Factors to PT CVA WITH L SIDE WEAKNESS, SEIZURES, FALLS, HTN Verified Two Patient Identifiers Yes Patient consents to therapy Yes Time Calculation Start Time 0950 Stop Time 1029 Time Calculation (min) 39 min Precautions General Precautions Bed Alarm;Chair Alarm;Fall Risk;Other(comment) Instructed on Precautions Yes;Needs reinforcement and education Pain Pain No Cognition Overall Cognitive Status Impaired Bed Mobility Rolling Modified independence Supine to Sit Modified independence TRANSFERS Sit to Stand Min assist;SBA/supervision Other (Comment) to and from the bathroom Gait Gait Assistance Min assist Assistive Device 2 Wheeled walker Ambulation Distance (Feet) 180 Pattern Shuffle steps;R Decreased stance time;L Decreased stance time;L Foot flat Exercises Other (Comment) instructed in rom and strengthening exercises Patient/Family Training Bed Mobility x Transfer Training x Gait Training x Precautions x Exercise Program x Recommendation PT Recommendation PT during Hospitalization;PT at [facility];Inpatient Rehab PT Equipment Recommended 2 Wheeled walker Plan PT Treatments/Interventions Gait Training;Therapeutic Exercises;Therapeutic Activities;Neuromuscular re-education;Patient/family training PT Frequency Daily;BID;6 times/week If this is the last treatment note,it will serve as the discharge summary Yes End of Session Safety End of Session Safety Chair alarm set/activated;Call light within reach;Nursing aware of session * Dimple Cavazos PTA - 12/02/2018 8:57 AM CDT 12/02/18 0700 Therapy Visit Subjective Pt eating breakfast will attempt therapy later * Shakila Isaacs LCSW - 12/01/2018 4:55 PM CDT Per [facility] with IP rehab, [facility] has denied at this time. This SW send COACH OPERATOR information to attempt appeal, will await decision to appeal and proceed to dc plan accordingly. * Dimple Cavazos PTA - 12/01/2018 2:30 PM CDT 12/01/18 1300 Therapy Visit Ordering Provider BOUCHRA Gasca Subjective Rm 322 pt agreeable to therapy Reason for admission Acute encephalopathy, weakness Relevant Comorbidities/ Personal Factors to PT CVA WITH L SIDE WEAKNESS, SEIZURES, FALLS, HTN Verified Two Patient Identifiers Yes Patient consents to therapy Yes Time Calculation Start Time 1330 Stop Time 1409 Time Calculation (min) 39 min Precautions General Precautions Bed Alarm;Chair Alarm;Fall Risk;Other(comment) Instructed on Precautions Yes;Needs reinforcement and education Pain Pain No Cognition Overall Cognitive Status Impaired Bed Mobility Rolling Modified independence Sit to Supine Modified independence TRANSFERS Sit to Stand Min assist Other (Comment) to and from the bathroom Gait Gait Assistance Min assist Assistive Device 2 Wheeled walker Ambulation Distance (Feet) 90 Pattern Shuffle steps;R Decreased stance time;L Decreased stance time;L Foot flat Exercises Other (Comment) instructed in rom and strengthening exercises Patient/Family Training Bed Mobility x Transfer Training x Gait Training x Precautions x Recommendation PT Recommendation Inpatient Rehab;PT during Hospitalization PT Equipment Recommended 2 Wheeled walker Plan PT Treatments/Interventions Gait Training;Therapeutic Exercises;Therapeutic Activities;Neuromuscular re-education;Patient/family training PT Frequency Daily;BID;6 times/week If this is the last treatment note,it will serve as the discharge summary Yes End of Session Safety End of Session Safety Bed alarm set/activated;Call light within reach;Nursing aware of session * Shakila Isaacs LCSW - 12/01/2018 1:39 PM CDT This SW met with both pt and pt's brother for DCPA. Pt resides home alone. Pt's brother checks on him daily but pt does reside home alone. Pt uses a rollator walker at home. Per doctor pt could use some rehab prior to returning home. At this time therapy is recommending IP rehab. Per [facility], pt hasbeen accepted to IP rehab but pending auth from [facility]. No SNF discussed at this time, will need t o readdress at dc if insurance does not approve. Pt's brother is able to transport for any dc needs. No other needs noted at this time. This SW did ask [facility] to screen in case pt does need or decide on SNF. * Zulma Gasca NP - 12/01/2018 1:11 PM CDT Hospitalist Daily Progress Note Subjective Mr. Tabor is resting in bed when seen and examined upon rounds earlier this am. He is A/Ox 3. His paredes was removed and he is voiding per urinal. He denies CP/SOB, n/v/d, dizziness/ lightheadedness, palpitations. Objective Filed Vitals: 11/30/18 0538 11/30/18 1640 11/30/18200012/01/18 0547 BP: 133/80 113/71 118/74 155/73 Pulse: 62 72 65 66 Resp: 18 18 20 20 Temp: 97.5 ??F (36.4 ??C) 97.9 ??F (36.6 ??C) 97.9 ??F (36.6 ??C) 97.6 ??F (36.4 ??C) TempSrc: Oral Oral Oral Oral SpO2: 97% 100% 100% 100% Weight: Height: Intake/Output 24H Total: Intake/Output Summary (Last 24 hours) at 12/01/2018 1311 Last data filed at 12/01/2018 1235 Gross per 24 hour Intake 600 ml Output 3600 ml Net -3000 ml -GENERAL: No acute distress, breathing comfortably on room air. -EYES: Extraocular movements intact -ENT: Neck supple, Septum is midline. -LUNG: Clear to auscultation bilaterally, No wheezes, No crackles -CVS: Regular rate rhythm, S1 and S2 normal, No murmurs, -ABDOMEN: Soft, nondistended, Nontender, Bowel sounds observed -EXT: no lower Ext edema. -NEURO: A/Ox3, cannot recall recent event, no focal deficits, generalized weakness -SKIN: Skin color, texture, turgor normal. No rashes or lesions Medications ??? amlodipine 5 mg Oral Daily ??? aspirin 81 mg Oral Daily ??? divalproex EC 500 mg Oral BID ??? folic acid 1 mg Oral Daily ??? gabapentin 300 mg Oral TID ??? heparin (porcine) 5,000 Units Subcutaneous 2 times per day ??? levETIRAcetam 2,000 mg Oral BID ??? OXcarbazepine 450 mg Oral BID ??? tamsulosin 0.4 mg Oral Daily ??? vitamin B1 100 mg Oral Daily Labs, Imaging, Other Studies Recent Labs Lab 11/29/18 1307 11/30/18 0733 12/01/18 0857 WBC 5.4 5.8 5.3 RBC 4.21* 4.04* 4.09* HGB 13.7* 13.2* 13.4* HCT 38.1* 37.4* 38.5* MCV 90.5 92.6 94.1* MCH 32.5* 32.7* 32.8* MCHC 36.0 35.3 34.8 PLT 178 173 186 RDW 11.9 11.8 12.0 MPV 10.5 10.6 10.8 PERNEU 50.0 44.0 42.7 PERLYM 33.5 39.0 39.4 PERMON 7.2 6.4 7.5 LYMC 1.82 2.25 2.09 MONOC 0.39 0.37 0.40 EOSC 0.45 0.57* 0.51 BASOC 0.03 0.03 0.03 DTYPE AUTOMATED DIFFERENTIAL AUTOMATED DIFFERENTIAL AUTOMATED DIFFERENTIAL Recent Labs Lab 11/29/18 1307 11/30/18 0733 12/01/18 0857 NA 126* 131* 136 K 4.0 3.9 4.0 CL 95* 101 105 CO2 24.7 24.5 25.8 AGAP 6.3 5.5 5.2 BUN 8 6* 6* CR 0.85 0.64* 0.79 BUNCREATININ 9.4 9.4 7.6 GFRNON >90 >90 >90 GFR >90 >90 >90 GLU 90 81 121* CA 8.8 8.3* 8.6 TP 7.2 -- -- ALB 4.2 -- -- TBIL 0.5 -- -- ALKP 67 -- -- AST 33 -- -- ALT 31 -- -- No results for input(s): CHOL, TRI, HDL, LDL, HGBA1C, TSH in the last 168 hours. No results for input(s): APTT, INR, PTT in the last 168 hours. No results for input(s): TROP, TROPIWB, CKMB, CPK in the last 168 hours. No results for input(s): LACTICACID, PROCT in the last 168 hours. No results for input(s): PH, PCO2, PO2, [id number], BICARBWB, BASEDEFICIT, BASEEXCESS in the [id number] hours. No results found for this or any previous visit. Imaging Ct Head Wo Con Result Date: 11/29/2018 EXAMINATION: CT of the head without contrast DATE: 11/29/2018 CLINICAL HISTORY: Altered mental status COMPARISON: 18 06/06/2017 TECHNIQUE: CT examination of the head without contrast was performed with axial images obtained. A dose lowering technique was used for this procedure, which may include, butis not limited to, dose reduction technique, automated exposure control, the use of iterative reconstruction, and ALARA (As Low As Reasonably Achievable) / Image Gently techniques. FINDINGS: No mass effect or shift of midline is seen. No hemorrhage is seen. Advanced atrophy is reidentified with prominent ventricular morphology and prominent subarachnoid space. Advanced periventricular white matter low- density changes and prominent septal malacia changes in the right occipital lobe lobe are reidentified. Moderate vascular calcifications are identified. Images globes remain intact. Imaged paranasal air sinuses demonstrate no opacification. Imaged mastoid air cells demonstrate relatively symmetric aeration. IMPRESSION: Noncontrast CT of the brain demonstrates no significant time interval change or acute findings as detailed above. Advanced atrophy and periventricular white matter region ischemic changesis reidentified. Encephalomalacic change in the right occipital lobe are identified. Follow-up as clinically applicable. Xr Chest Portable Result Date: 11/29/2018 Exam: Chest x-ray Comparison 03/24/2017 INDICATION: Altered mental status TECHNIQUE: One view FINDINGS: Heart size and pulmonary vessels are within normal limits. Lungs are clear. No interstitial edema, hyperinflation, or pleural fluid. IMPRESSION: Normal exam. 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1960 Requested By: DEMETRIUS ANGLIN Order Number: [id number] Reading MD: Portillo Nicolas Measurements Intervals [place] Rate: 68 P: 70 [place]: 178 QRS: 24 QRSD: 93 T: 65 QT: 379 QTc: 406 Interpretive Statements SINUS RHYTHM ANTEROSEPTAL MYOCARDIAL INFARCTION, OF INDETERMINATE AGE Compared to ECG 06/06/2017 16:47:33 No significant changes Assessment & Plan Encephalopathy acute This appears to be recurrent complaint during multiple admissions to the emergency room another hospital facilities Cannot ascertain whether this is medication side effect from appropriate dosages or inadequate or overdosage by patient because he cannot remember to take his medications. I would monitor patient's condition here until he improves as he does not function at baseline currently is at risk for injury or worse at home UA negative With hyponatremia on admission- now improved PT/OT Disposition: IP Rehab consulted and accepted pending insurance auth. Paredes removed. Cerebrovascular accident (CVA) due to thrombosis of right posterior cerebral artery (CMS/HCC) Patient has residual cognitive difficulties I think beyond with patient and her family have recognized in the past however as noted in adequate medication intake his side effects may be causing deterioration. ?? Hyperlipidemia Continue home meds and monitor ?? UTI (urinary tract infection) As noted above No evidence of infection [facility] cultures from [facility] month were negative growth as well with similar findings urinalysis Symptoms may be due to chronic urinary retention Flomax Paredes removed and voiding well ?? Seizure (CMS/HCC) History of generalized seizure disorder [facility] is confusion from family about dosages of his medications because he is got multiple pill bottles at home. Verification of levetiracetam dose per neurologist noted ?? ZULMA GASCA NP Cosigned by Ana Willis MD at 01/25/2019 7:20 AM CDT * Juan Lamb, OTR - 12/01/2018 9:51 AM CDT 12/01/18901 Therapy Visit OT Received On 11/30/18 Treatment Day 1 Reason for admission Acute encephalopathy, weakness Comorbidities Relevant to OT Seizures, HZTN, HLD, CVA with L side deficits, Falls Previous Occupational Therapy Unknown Ordering Provider BOUCHRA Gasca Verified Two Patient Identifiers Yes Patient consents to therapy Yes Time Calculation Start Time 901 Stop Time 926 Time Calculation (min) 25 min Precautions General Precautions Bed Alarm;Chair Alarm;Fall Risk;Other(comment) (IV, seizure precautions) Instructed on Precautions Yes;Needs reinforcement and education Subjective Subjective RM A322: Pt supine in bed, just finished working with PT. Pt states he is hoping to go up to rehab today. Home Living Type of Home Apartment Home Layout One level Home Accessibility 0 Steps to enter Bathroom Shower/Tub Walk-in shower Bathroom Toilet Standard Toilet Bathroom Equipment Grab bars in shower Home Equipment 4 Wheeled walker;Wheelchair-manual Prior Function Level of [place] Independent with ADLs;Independent with functional transfers;Independent with ambulation;Needs assistance with homemaking Device used at baseline 4 Wheeled walker Fall History Yes Reason for fall per pt: seizures and legs giving out How many falls in the past year? 3 Lives With Alone Receives Help From Family (Brother) ADL Assistance Independent Comments Pt may be a questionable historian, however reports that he was previously independent with all ADLs and light household IADLs. He inittially states he does his own cooking, cleaning, and laundry, hwever states at end of session that he has a social science instructor who does his laundry and cleaning. He reports that his borther drives him to the grocery store and he taskes a med car to appointments. Pain Pain No Activity Tolerance Endurance Endurance does not limit participation in activity Vision - Basic Assessment Current Vision Does not wear glasses Vision - Complex Assessment Ocular Range of Motion Restricted looking down Tracking Decreased smoothness of vertical tracking Additional Comments Upon tracking assessment, noted pt with difficulty tracking vertically, only moving eyes L<>R. Decreased spatial awareness noted during mobility and transfers. Cognition Overall Cognitive Status Impaired Arousal/Alertness Appropriate responses to stimuli Orientation Level Oriented to person;Oriented to place;Disoriented to situation;Disoriented to time (Pt states the month is October, correct day and year) Following Commands Follows one step commands consistently Safety Judgment Decreased awareness of need for safety Deficits Decreased awareness of deficits Overall Extremity Assessment Upper Extremity AROM WFL all joints all planes; strength 4/5 grossly Hand Function Hand Dominance Right Gross Grasp Functional Coordination Functional ADL Eating/Feeding Assistance Stand by;Sitting in chair Eating/Feeding Deficit Increased time to complete;Setup Grooming Assistance Minimal;Sitting in chair Grooming Deficit Increased time to complete;Supervision/safety;Steadying;Setup Grooming Comment Pt completed hand hygiene standing at sink with min A for safety/balance Bathing Assistance Minimal;Alternating sit/stand Bathing Deficit Increased time to complete;Supervision/safety;Verbal cueing;Steadying;Setup UE Dressing Assistance Stand by;Sitting at EOB UE Dressing Deficit Increased time to complete;Supervision/safety;Setup;Verbal cueing LE Dressing Assistance Minimal;Alternating sit/stand LE Dressing Deficit Pull up over hips;Increased time to complete;Supervision/safety;Verbal cueing;Requires assistive device for steadying;Steadying;Setup LE Dressing Comment While seated at EOB, pt able to bend forward to tie shoes with good accuracy and extended time. Pt requires min A to adjust clothing over hips while in standing. Toileting Assistance Minimal Toileting Deficit Clothing management up;Increased time to complete;Supervision/safety;Steadying Toileting Comment Pt urinated while seated on toilet; pt required min A to adjust gown prior to sitting on toilet Bed Mobility Supine to Sit Modified independence Sit to Supine Modified independence Functional Transfers Sit to Stand Min assist Toilet Transfers Mod assist (standard toilet, grab bar use) Functional Mobility Pt performed functional mobility bed<>bathroom usig WW with mod A overalland cues for safety throughout. Upon approaching toilet, pt required verbal cues to properly align body with toilet, as he had gone too far to the left. Balance Sitting - Static Independent Sitting - Dynamic Modified independence Standing - Static Min Assist Standing - Dynamic Mod Assist Other (Comment) Standing with support of the WW Assessment Occupational Profile and History Complexity Moderate (Expanded) Performance Skills Deficits Bathing/showering;Dressing;Functional mobility;Personal hygiene and grooming;Toileting Performance Deficit Level Moderate (3-5 deficits) Clinical Decision Making Moderate (min/mod modifications) Complexity Level of Evaluation Moderate Prognosis Good Patient/Family Training Self Cares x Transfer Training x DME Education x Precautions x Other (Comment) one:one; pt receptive to tasks presented to him Recommendation OT Recommendation Inpatient Rehab;OT during Hospitalization OT Equipment Recommended Tub/shower chair with back Plan OT Treatment/Intervention Self-care training;Therapeutic exercises;Therapeutic activities;Neuromuscular re-education;Patient/family training;Functional activity;Safety OT Frequency 3 times/week;5 times/week OT plan for next session ADLs, Transfers, Ther ex If this is the last treatment note, it will serve as the discharge summary Yes End of Session Safety End of Session Safety Bed alarm set/activated;Call light within reach Pt to benefit from continued skilled OT services to increase strength, dynamic balance, functional activity tolerance, and general safety awareness needed for optimal independence with ADLs and functional mobility. Recommend IP rehab upon d/c for optimal pt safety. ALEJANDRA BOLES * Dimple Cavazos, FOREIGN BROADCAST SPECIALIST - 12/01/2018 9:23 AM CDT 12/01/18 0900 Therapy Visit Ordering Provider GAYATRI Ruffin Rm 322 Pt states he wants to return to bed Reason for admission ACUTE ENCEPHALOPATHY Relevant Comorbidities/ Personal Factors to PT CVA WITH L SIDE WEAKNESS, SEIZURES, FALLS, HTN Verified Two Patient Identifiers Yes Patient consents to therapy Yes Time Calculation Start Time 0836 Stop Time 0900 Time Calculation (min) 24 min Precautions General Precautions Bed Alarm;Chair Alarm;Fall Risk Instructed on Precautions Yes;Needs reinforcement and education Pain Pain Patient does not offer or c/o pain Activity Tolerance Endurance Tolerates 20 - 30 min activity with rests Cognition Overall Cognitive Status Impaired Bed Mobility Rolling Modified independence Sit to Supine Modified independence TRANSFERS Sit to Stand Min assist Other (Comment) to and from the bathroom Gait Gait Assistance Mod assist Assistive Device 2 Wheeled walker Ambulation Distance (Feet) 50 Pattern Shuffle steps;R Decreased stance time;L Decreased stance time;L Foot flat Exercises Other (Comment) instructed in rom and strengthening exercises Patient/Family Training Bed Mobility x Transfer Training x Gait Training x Precautions x Recommendation PT Recommendation Inpatient Rehab;PT during Hospitalization Plan PT Treatments/Interventions Gait Training;Therapeutic Exercises;Therapeutic Activities;Neuromuscular re-education;Patient/family training PT Frequency Daily;BID;6 times/week If this is the last treatment note,it will serve as the discharge summary Yes End of Session Safety End of Session Safety Bed alarm set/activated;Call light within reach;Nursing aware of session * Zulma Gasca, BOUCHRA - 11/30/2018 2:19 PM CDT Hospitalist Daily Progress Note Subjective Mr. Tabor is resting in bed when seen and examined upon rounds earlier this am. He tells me he feels well this am. He can not recall what has brought him to the hospital, however he knows where he is, who he is, and which year it is. Paredes is in place draining yellow urine. He denies CP/SOB, n/v/d,dizziness/ lightheadedness, palpitations. Objective Filed Vitals: 11/29/18 1700 11/29/18 1743 11/29/18 1900 11/30/18 0538 BP: 150/81 144/83 133/80 Pulse: 62 66 64 62 Resp: 18 18 16 18 Temp: 97.1 ??F (36.2 ??C) 97.3 ??F (36.3 ??C) 97.5 ??F (36.4 ??C) TempSrc: Oral Oral Oral SpO2: 100% 100% 100% 97% Weight: Height: Intake/Output 24H Total: Intake/Output Summary (Last 24 hours) at 11/30/2018 1421 Last data filed at 11/30/2018 0538 Gross per 24 hour Intake 360 ml Output 1525 ml Net -1165 ml -GENERAL: No acute distress, breathing comfortably on room air. -EYES: Extraocular movements intact -ENT: Neck supple, Septum is midline. -LUNG: Clear to auscultation bilaterally, No wheezes, No crackles -CVS: Regular rate rhythm, S1 and S2 normal, No murmurs, -ABDOMEN: Soft, nondistended, Nontender, Bowel sounds observed -EXT: no lower Ext edema. -NEURO: A/Ox3, cannot recall recent event, no focal deficits, generalized weakness -SKIN: Skin color, texture, turgor normal. No rashes or lesions - Paredes catheter in place Medications ??? amlodipine 5 mg Oral Daily ??? aspirin 81 mg Oral Daily ??? divalproex EC 500 mg Oral BID ??? folic acid 1 mg Oral Daily ??? gabapentin 300 mg Oral TID ??? heparin (porcine) 5,000 Units Subcutaneous 2 times per day ??? levETIRAcetam 2,000 mg Oral BID ??? OXcarbazepine 450 mg Oral BID ??? tamsulosin 0.4 mg Oral Daily ??? vitamin B1 100 mg Oral Daily ??? sodium chloride 125 mL/hr at 11/30/18 1217 Labs, Imaging, Other Studies Recent Labs Lab 11/29/18 1307 11/30/18 0733 WBC 5.4 5.8 RBC 4.21* 4.04* HGB 13.7* 13.2* HCT 38.1* 37.4* MCV 90.5 92.6 MCH 32.5* 32.7* MCHC 36.0 35.3 PLT 178 173 RDW 11.9 11.8 MPV 10.5 10.6 PERNEU 50.0 44.0 PERLYM 33.5 39.0 PERMON 7.2 6.4 LYMC 1.82 2.25 MONOC 0.39 0.37 EOSC 0.45 0.57* BASOC 0.03 0.03 DTYPE AUTOMATED DIFFERENTIAL AUTOMATED DIFFERENTIAL Recent Labs Lab 11/29/18 1307 11/30/18 0733 NA 126* 131* K 4.0 3.9 CL 95* 101 CO2 24.7 24.5 AGAP 6.3 5.5 BUN 8 6* CR 0.85 0.64* BUNCREATININ 9.4 9.4 GFRNON >90 >90 GFR >90 >90 GLU 90 81 CA 8.8 8.3* TP 7.2 -- ALB 4.2 -- TBIL 0.5 -- ALKP 67 -- AST 33 -- ALT 31 -- No results for input(s): CHOL, TRI, HDL, LDL, HGBA1C, TSH in the last 168 hours. No results for input(s): APTT, INR, PTT in the last 168 hours. No results for input(s): TROP, TROPIWB, CKMB, CPK in the last 168 hours. No results for input(s): LACTICACID, PROCT in the last 168 hours. No results for input(s): PH, PCO2, PO2, [id number], BICARBWB, BASEDEFICIT, BASEEXCESS in the [id number] hours. No results found for this or any previous visit. Imaging Ct Head Wo Con Result Date: 11/29/2018 EXAMINATION: CT of the head without contrast DATE: 11/29/2018 CLINICAL HISTORY: Altered mental statusCOMPARISON: 18 06/06/2017 TECHNIQUE: CT examination of the head without contrast was performed with axial images obtained. A dose lowering technique was used for this procedure, which may include, but is not limited to, dose reduction technique, automated exposure control, the use of iterative reconstruction, and ALARA (As Low As Reasonably Achievable) / Image Gently techniques. FINDINGS: No mass effect or shift of midline is seen. No hemorrhage is seen. Advanced atrophy is reidentified with prominent ventricular morphology and prominent subarachnoid space. Advanced periventricular white matterlow- density changes and prominent septal malacia changes in the right occipital lobe lobe are reidentified. Moderate vascular calcifications are identified. Images globes remain intact. Imaged paranasal air sinuses demonstrate no opacification. Imaged mastoid air cells demonstrate relatively symmetric aeration. IMPRESSION: Noncontrast CT of the brain demonstrates no significant time interval change or acute findings as detailed above. Advanced atrophy and periventricular white matter region ischemic changesis reidentified. Encephalomalacic change in the right occipital lobe are identified. Follow-up as clinically applicable. Xr Chest Portable Result Date: 11/29/2018 Exam: Chest x-ray Comparison 03/24/2017 INDICATION: Altered mental status TECHNIQUE: One view FINDINGS: Heart size and pulmonary vessels are within normal limits. Lungs are clear. No interstitial edema, hyperinflation, or pleural fluid. IMPRESSION: Normal exam. 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1960 Requested By: DEMETRIUS ANGLIN Order Number: [id number] Reading MD: Portillo Nicolas Measurements Intervals [place] Rate: 68 P: 70 [place]: 178 QRS: 24 QRSD: 93 T: 65 QT: 379 QTc: 406 Interpretive Statements SINUS RHYTHM ANTEROSEPTAL MYOCARDIAL INFARCTION, OF INDETERMINATE AGE Compared to ECG 06/06/2017 16:47:33 No significant changes Assessment & Plan Encephalopathy acute This appears to be recurrent complaint during multiple admissions to the emergency room another hospital facilities Cannot ascertain whether this is medication side effect from appropriate dosages or inadequate or overdosage by patient because he cannot remember to take his medications. I would monitor patient's condition here until he improves as he does not function at baseline currently is at risk for injury or worse at home UA negative With hyponatremia on admission- now improved Will likely need SNF at [place] Cerebrovascular accident (CVA) due to thrombosis of right posterior cerebral artery (CMS/HCC) Patient has residual cognitive difficulties I think beyond with patient and her family have recognized in the past however as noted in adequate medication intake his side effects may be causing deterioration. ?? Hyperlipidemia Continue home meds and monitor ?? UTI (urinary tract infection) As noted above No evidence of infection [facility] negative growth as well with similar findings urinalysis Symptoms may be due to chronic urinary retention Flomax and observe and discontinue Paredes in am with voiding trial ?? Seizure (CMS/HCC) History of generalized seizure disorder [facility] confusion from family about dosages of his medications because he is got multiple pill bottles at home. Verification of levetiracetam dose per neurologist noted ?? ZULMA GASCA NP Cosigned by Ana Willis MD at 01/25/2019 7:19 AM CDT * Kayla Mackey, PT - 11/30/2018 9:16 AM CDT 11/30/18 0900 Therapy Visit Ordering Provider GAYATRI [facility] ROOM A322: PT IN BED UPON ENTRANCE TO ROOM. PT VERY PLEASANT AND RECEPTIVE TO P.T. SERVICES. REPORTS INCREASED WEAKNESS FOR THE PAST FEW WEEKS WITH MULTIPLE FALLS. Reason for admission ACUTE ENCEPHALOPATHY Relevant Comorbidities/ Personal Factors to PT CVA WITH L SIDE WEAKNESS, SEIZURES, FALLS, HTN Verified Two Patient Identifiers Yes Patient consents to therapy Yes Time Calculation Start Time 0830 Stop Time 0915 Time Calculation (min) 45 min Therapy Interruption (min) 0 Precautions General Precautions Bed Alarm;Chair Alarm;Fall Risk;Other(comment) (SEIZURE PRECAUTIONS) Instructed on Precautions Yes;Needs reinforcement and education Home Living Type of Home Apartment Home Layout One level Home Accessibility 0 Steps to enter Home Equipment 4 Wheeled walker;Wheelchair-manual Prior Function Level of [place] Independent with functional transfers;Independent with ambulation;Needs assistance with homemaking Device used at baseline 4 Wheeled walker Baseline Ambulation Distance/Assistance PT STATES HE IS ABLE TO WALK WITH HIS ROLLATOR W/W IN HIS APT. AND OUT IN THE COMMUNITY AT BASELINE; STATES HAS A W/C BUT RARELY USES IT. 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 Fall History Yes Reason for fall PT REPORTS 4 RECENT FALLS DUE TO WEAKNESS. Lives With Alone Receives Help From Family (STATES BROTHER CHECKS ON HIM, PROVIDES TRANSPORTATION ) Pain Pain No Activity Tolerance Endurance Endurance does not limit participation in activity Cognition Overall Cognitive Status Impaired Orientation Level Oriented to time;Oriented to person Following Commands Follows one step commands consistently Safety Judgment Decreased awareness of need for safety Deficits Decreased awareness of deficits Other (Comment) PT STATES HE IS AT SOME HOSPITAL BUT NOT SURE WHICH ONE BECAUSE HIS CALORIES ARE LOW AND HE KEEPS FALLING Overall Extremity Assessment Upper Extremity AROM WF; GROSS MMT 4-4+/5 Lower Extremity AROM WFL Lower Extremity Comment MMT: HIP FLEX 3+/5, KNEE EXT AND ANKLE DF 4/5: FUNCTIONALLY WEAKER L VS R DESPITE MMT MEASURES Bed Mobility Supine to Sit Modified independence Sit to Supine Modified independence TRANSFERS Sit to Stand Min assist (ED TO SAFE HAND PLACEMENT TECHNIQUE APPROACH TO W/W ) Bed to Chair Mod assist (WITH SUPPORT OF THE W/W AND CUES TO STAY WITHIN THE W/W) Gait Gait Assistance Mod assist Assistive Device 2 Wheeled walker Ambulation Distance (Feet) 90' Pattern Shuffle steps;R Decreased stance time;L Decreased stance time;L Foot flat Other (Comment) PT DEMONSTRATED A FLEXED FORWARD POSTURE ONTO THE W/W WITH L LEAN AND A NARROW RISA.P.T. PROVIDED EDUCATION TO WALK WITHIN THE CONFINES OF THE W/W AND WIDEN RISA. Balance Sitting - Static Independent Sitting - Dynamic Modified independence Standing - Static Mod Assist Standing - Dynamic Mod Assist Other (Comment) STANDING BALANCE WITH SUPPORT OF THE W/W Patient/Family Training Bed Mobility X Transfer Training X Gait Training X Precautions X Assessment Personal Factors/Comorbidities Impacting Care 3-4 personal factors/comorbidities Examination of Body Systems High (at least 4 Elements) Objectives of Body Systems Impaired transfers;Impaired ambulation;Impaired balance;Impaired stair negotiation;Decreased ADL status;Decreased LE strength;Decreased safe judgement;Decreased cognition Clinical Presentation of Patient Evolving and changing characteristics Complexity Level of Evaluation Moderate Prognosis Good Recommendation PT Recommendation Inpatient Rehab;PT during Hospitalization;PT at [facility] Facility PT Equipment Recommended (HAS A 4 W/W BUT MAY NEED A 2 W/W FOR INCREASED STABILITY ) Plan PT Treatments/Interventions Gait Training;Therapeutic Exercises;Therapeutic Activities;Neuromuscular re-education;Patient/family training PT Frequency Daily;BID;6 times/week PT plan for next session ADVANCE GAIT, BALANCE AND TRANSFER TRAINING If this is the last treatment note,it will serve as the discharge summary Yes End of Session Safety End of Session Safety Chair alarm set/activated;Call light within reach;Nursing aware of session;Transfer status education * Emmanuel Morel MD - 11/29/2018 9:38 PM CDTAssociated Problem(s): Seizure ([facility] History of generalized seizure disorder and [facility] confusion from family about dosages of his medications because he is got multiple pill bottles at home. Verification of levetiracetam dose per neurologist noted * Emmanuel Morel MD - 11/29/2018 9:37 PM CDTAssociated Problem(s): UTI (urinary tract infection) As noted above No evidence of infection Urine cultures from [facility] last month were negative growth as well with similar findings urinalysis Symptoms may be due to chronic urinary retention and he will require postvoid residuals and urologic evaluation if significant retention is noted during this admission. I will put him on some Flomax and observe and discontinue Paredes in 48 hours. * Emmanuel Morel MD - 11/29/2018 9:36 PM CDTAssociated Problem(s): Hyperlipidemia Continue home meds and monitor * Emmanuel Morel MD - 11/29/2018 9:36 PM CDTAssociated Problem(s): Cerebrovascular accident (CVA) due to thrombosis of right posterior cerebral artery ([facility]) Patient has residual cognitive difficulties I think beyond with patient and her family have recognized in the past however as noted in adequate medication intake her side effects may be causing deterioration. * Emmanuel Morel MD - 11/29/2018 9:34 PM CDTAssociated Problem(s): Encephalopathy acute This appears to be rather recurrent complaint [...] by multiple squamous cells noted. Urine from Paredes catheter looks fairly clear and he does not have any leukocytosis which would indicate any systemic reaction to infection.Antibiotics not indicated documented in this encounter H&P Notes * Emmanuel Morel MD - 11/29/2018 9:11 PM CDT Hospitalist History and Physical Patient: Mojgan Tabor Date: 11/29/2018 male, 58-year-old Admit Date: 11/29/2018 Attending: Emmanuel Morel MD REASON FOR ADMISSION: Weakness HISTORY OF PRESENT ILLNESS: Mojgan Tabor is a 58-year-old male with past medical history significant for CVA, HTN, HLD, and seizures who presents with weakness and disorientation that worsened today. Pt is a poor historian and most information is provided by sister and [id number]. Over the past few days, pt has experienced increased weakness and inability to stand as well as disorientation. He has experienced some headaches, but denies nausea or decreased p.o.intake. He was seen in the ER last week on 11/23/18 and found to be hyponatremic. He was given 1L IV ns and discharged home. Since then, his weakness has not improved. The last few days, he has had more difficulty urinating. [facility] neurologist changed meds in September, and family is unsure if he is using his pillbox correctly or taking medications as prescribed. Family reports he drinks >8 bottles of water daily. He is on keppra for seizure history. PCP is Dr. Maradiaga. The patient complains about urinary frequency however has urinary hesitancy and decreased urine stream The patient's sister was present at time of history and physical. The patient lives in apartment with his brother however he is not being supervised with intake of medications. He is having increasing weakness and reportedly decreasing weight. The patient does not participate in questioning any looks rather bewildered during this interview. Allergy No Known Allergies Medications Prior to Admission Medication Sig Dispense Refill ??? AMLODIPINE 5 MG tablet TAKE 1 TABLET(5 MG) BY MOUTH DAILY 90 tablet 2 ??? aspirin 81 MG chewable tablet Chew 1 tablet (81 mg total) by mouth daily. 90 tablet 0 ??? clonazePAM 0.5 MG tablet TK 1 T PO Q 8 H PRN. PLEASE CALL OFFICE IF SEIZURES OCCUR AFTER TAKING. 5 ??? divalproex EC 500 MG tablet Take 500 mg by mouth 2 (two) times daily. 1 ??? folic acid 1 MG tablet Take 1 mg by mouth daily. ??? gabapentin 300 MG capsule Take 300 mg by mouth 3 (three) times daily. ??? levETIRAcetam 1000 MG tablet Take 2,000 mg by mouth 2 (two) times daily. ??? OXcarbazepine 300 MG tablet Take 450 mg by mouth 2 (two) times daily. ??? vitamin B1 100 MG tablet Take 100 mg by mouth daily. Past Medical History Past Medical History: Diagnosis Date ??? HLD (hyperlipidemia) ??? Hypertension ??? Seizures (CMS/HCC) ??? Seizures (CMS/HCC) ??? Stroke (CMS/HCC) lt side weakness Past Surgical History: Procedure Laterality Date ??? NONE Social History Social History Socioeconomic History ??? [...] Smoker ??? Smokeless tobacco: Never Used Substance and Sexual Activity ??? Alcohol use: No ??? Drug use: No ??? Sexual activity: Not on file Lifestyle ??? Physical activity: Days per week: Not on file Minutes per session: Not on file ??? Stress: Not on file Relationships ??? Social connections: Talks on phone: Not on file Gets together: Not on file Attends orthodoxy service: Not on file Active member of [...] Social History Narrative ??? Not on file ?? Lives at home alone. Home health nurse checks in on him 3-4 times a week. Family History Family History Family history unknown: Yes REVIEW OF SYSTEMS: A 14 point review of systems was taken and pertinent positive as per HPI PHYSICAL EXAMINATION: Vital 24 Hour Range Most Recent Value Temperature Temp Min: 97.1 ??F (36.2 ??C) Max: 99 ??F (37.2 ??C) 97.3 ??F (36.3 ??C) Pulse Pulse Min: 62 Max: 85 64 Respiratory Resp Min: 14 Max: 18 16 Blood Pressure BP Min: 128/79 Max: 150/81 144/83 Pulse Oximetry SpO2 Min: 100 % Max: 100 % 100 % O2 No Data Recorded Vital Most Recent Value First Value Weight 64 kg (141 lb) Weight: 64 kg (141 lb) Height 5' 11 (180.3 cm) Height: 5' 11 (180.3 cm) BMI 19.7 N/A Physical Exam: -GENERAL: No acute distress, breathing comfortably on room air. -EYES: Extraocular movements intact -ENT: Neck supple, Septum is midline. -LUNG: Clear to auscultation bilaterally, No wheezes, No crackles -CVS: Regular rate rhythm, S1 and S2 normal, No murmurs, -ABDOMEN: Soft, nondistended, Nontender, Bowel sounds observed -EXT: no lower Ext edema. -NEURO: Alert, awake, oriented x person and place, No gross neuro deficit however he looks slow to answer questions and does not remember any of his medications or conditions. He is able to walk although appears quite slow but somewhat hampered by Paredes catheter and IV line -SKIN: Skin color, texture, turgor normal. No rashes or lesions - Paredes catheter in place Intake/Output last 3 shifts: No intake/output data recorded. Labs: Recent Labs Lab 11/23/18 0958 11/23/18 1347 11/29/18 1307 NA 129* 130* 126* K 3.9 3.7 4.0 CL 98* 100 95* CO2 26.9 25.5 24.7 AGAP 4.1* 4.5* 6.3 BUN 8 9 8 CR 0.79 0.76 0.85 BUNCREATININ 10.1 11.9 9.4 GFRNON >90 >90 >90 GFR >90 >90 >90 GLU 80 81 90 CA 8.7 8.7 8.8 Recent Labs Lab 11/23/18 0958 11/23/18 1347 11/29/18 1307 WBC 5.0 5.2 5.4 RBC 4.29* 4.42* 4.21* HGB 13.8* 14.1 13.7* HCT 39.6* 40.5* 38.1* MCV 92.3 91.6 90.5 MCH 32.2* 31.9* 32.5* MCHC 34.8 34.8 36.0 PLT 164 145 178 RDW 11.7 11.6 11.9 MPV 10.6 11.1 10.5 Recent Labs Lab 11/23/18 0958 11/29/18 1307 AST 20 33 ALT 14* 31 No results for input(s): INR, PTT in the last 168 hours. Invalid input(s): ABG arterial blood gases No results for input(s): TROP, TROPIWB, CPK in the last 168 hours. Invalid input(s): CK-MB No results for input(s): PH, PCO2, PO2, [id number], BICARBWB, BASEDEFICIT, BASEEXCESS in the [id number] hours. Imagining & Other Studies XR Chest Portable (11/29/18) Impression: Normal exam. CT Head WO Contrast (11/29/18) Impression: 1. Noncontrast CT of the brain demonstrates no significant time interval change or acute findings as detailed above. 2. Advanced atrophy and periventricular white matter region ischemic changes is reidentified. 3. Encephalomalacic change in the right occipital lobe are identified. 4. Follow-up as clinically applicable. Assessment & Plan Encephalopathy acute This appears to be rather recurrent complaint [...] by multiple squamous cells noted. Urine from Paredes catheter looks fairly clear and he does not have any leukocytosis which would indicate any systemic reaction to infection.Antibiotics not indicated Cerebrovascular accident (CVA) due to thrombosis of right posterior cerebral artery (CMS/HCC) Patient has residual cognitive difficulties I think beyond with patient and her family have recognized in the past however as noted in adequate medication intake her side effects may be causing deterioration. Hyperlipidemia Continue home meds and monitor UTI (urinary tract infection) As noted above No evidence of infection [facility] were negative growth as well with similar findings urinalysis Symptoms may be due to chronic urinary retention and he will require postvoid residuals and urologic evaluation if significant retention is noted during this admission. I will put him on some Flomax and observe and discontinue Paredes in 48 hours. Seizure (CMS/HCC) History of generalized seizure disorder [facility] confusion from family about dosages of his medications because he is got multiple pill bottles at home. Verification of levetiracetam dose per neurologist noted DVT Prophylaxis: Advanced Directive: I have seen and examined the patient and anticipate patient will require more than 2-3 midnight stay. Emmanuel Morel III, MD 11/29/2018 9:42 PM documented in this encounter Consult Notes * Elif Chambers, RD - 12/04/2018 12:16 PM CDT A: PT SEEN FOR LOW BMI. WEIGHT DOWN FORM 141# AT ADMIT TO PRESENT WEIGHT OF 132# BRINGING BMI TO 18.4. PT REPORTS NORMAL WEIGHT IS ~ 155# WHICH HE WEIGHED A FEW WEEKS AGO. INTAKE HAS BEEN GOOD AND PTATE ALL OF BREAKFAST TODAY. EST. CALORIE NEEDS: [id number] JAIRO([id number]) + 300 JAIRO = [id number] JAIRO TO SUPPORT DESIRED WEIGHT GAIN. EST. PROTEIN NEEDS:72 GM PROTEIN ( 1.2 GM PRO/KG) REVIEWED LABS AND MEDICATIONS. D: PES=UNDERWEIGHT RT INADEQUATE ORAL INTAKE AEB BMI OF 18.4. I: GOALS: RECOMMEND CONTINUING WITH REGULAR DIET. ALSO RECOMMEND ENSURE ENLIVE BID TO SUPPLEMENT CALORIE INTAKE TO SUPPORT DESIRED WEIGHT GAIN. M/E: PT AT MODERATE NUTRITION RISK. F/U 12/08/18. GOALS: INTAKE > 70%, TAKING AT LEAST ONE ENSUREDAILY. * Renetta Johnson MD - 12/01/2018 2:06 PM CDTAssociated Order(s): IP CONSULT TO PHYSICAL MEDICINE REHAB Reason for Admission: Encephalopathy acute HPI: Mojgan Tabor is an 58-year-old male with past medical history significant for CVA, HTN, HLD,and seizures who presents with weakness and disorientation that worsened today. Over the past few days, pt has experienced increased weakness and inability to stand as well as disorientation. . He was seen in the ER [facility] 11/23/18 and found to be hyponatremic. He was given 1L IV ns and discharged home. Since then, his weakness has not improved. The last few days, he has had more difficulty urinating. No one is Sure he is using his pillbox correctly or taking medications as prescribed. admitted for encephalopathy , doing better now PMR consulted for inpatient rehab placement. Past Medical History: Diagnosis Date ??? HLD (hyperlipidemia) ??? Hypertension ??? Seizures (CMS/HCC) ??? Seizures (CMS/HCC) ??? Stroke (CMS/HCC) lt side weakness Allergies as of 11/29/2018 ??? (No Known Allergies) Social History Socioeconomic History ??? Marital status: [...] Smoker ??? Smokeless tobacco: Never Used Substance and Sexual Activity ??? Alcohol use: No ??? Drug use: No ??? Sexual activity: Not on file Lifestyle ??? Physical activity: Days per week: Not on file Minutes per session: Not on file ??? Stress: Not on file Relationships ??? Social connections: Talks on phone: Not on file Gets together: Not on file Attends orthodoxy service: Not on file Active member of [...] Social History Narrative ??? Not on file Past Surgical History: Procedure Laterality Date ??? NONE Family History Family history unknown: Yes Current Facility-Administered Medications: ??? amlodipine (NORVASC) tablet 5 mg, 5 mg, Oral, Daily, Emmanuel Morel MD, 5 mg at 12/01/18821 ??? aspirin chewable tablet 81 mg, 81 mg, Oral, Daily, Emmanuel Morel MD, 81 mg at 12/01/18821 ??? divalproex EC (DEPAKOTE) delayed release tablet 500 mg, 500 mg, Oral, BID, Zulma Gasca NP, 500 mg at 12/01/18820 ??? folic acid (FOLVITE) tablet 1 mg, 1 mg, Oral, Daily, Emmanuel Morel MD, 1 mg at 12/01/18821 ??? gabapentin (NEURONTIN) capsule 300 mg, 300 mg, Oral, TID, Emmanuel Morel MD, 300 mg at 12/01/18821 ??? heparin (porcine) injection 5,000 Units, 5,000 Units, Subcutaneous, 2 times per day, 5,000 Units at 12/01/18821 AND [COMPLETED] Moderate Risk for VTE, , , Once, Emmanuel Morel MD ??? levETIRAcetam (KEPPRA) tablet 2,000 mg, 2,000 mg, Oral, BID, Emmanuel Morel MD, 2,000 mg at 12/01/18820 ??? OXcarbazepine (TRILEPTAL) tablet 450 mg, 450 mg, Oral, BID, Emmanuel Morel MD, 450 mg at 12/01/18821 ??? tamsulosin (FLOMAX) capsule 0.4 mg, 0.4 mg, Oral, Daily, Emmanuel Morel MD, 0.4 mg at 12/01/18821 ??? vitamin B-1 (THIAMINE) tablet 100 mg, 100 mg, Oral, Daily, Emmanuel Morel MD, 100 mg at 12/01/18821 Encephalopathy acute UTI (urinary tract infection) Cerebrovascular accident (CVA) due to thrombosis of right posterior cerebral artery (CMS/HCC) Hyperlipidemia Seizure (CMS/HCC) ROS Review of Systems Constitutional: Positive for malaise/fatigue. Negative for fever. Respiratory: Negative for cough. Cardiovascular: Negative for chest pain. Gastrointestinal: Negative for nausea and vomiting. Genitourinary: Negative for dysuria. Musculoskeletal: Positive for joint pain. Neurological: Positive for focal weakness and weakness. Negative for dizziness. Psychiatric/Behavioral: Positive for memory loss. The patient is nervous/anxious. Physical Exam Vitals: 12/01/1847 BP: 155/73 Pulse: 66 Resp: 20 Temp: 97.6 ??F (36.4 ??C) SpO2: 100% Physical Exam Constitutional: He is oriented to person, place, and time. HENT: Head: Atraumatic. Eyes: EOM are normal. Cardiovascular: Normal rate. Pulmonary/Chest: No respiratory distress. Abdominal: Soft. There is no tenderness. Musculoskeletal: He exhibits edema. Neurological: He is alert and oriented to person, place, and time. Coordination abnormal. Skin: Skin is dry. Psychiatric: His mood appears anxious. Nursing note and vitals reviewed. Neurologic Exam Mental Status Oriented to person, place, and time. Cranial Nerves CN III, IV, Extraocular motions are normal. FUNCTIONAL STATUS PREHOSPITALIZATION: The patient was independent with most of the ADLs. ?? CURRENT LEVEL OF FUNCTION: Functional Status Sit to Stand: Min assist Rolling: Modified independence Gait: Gait Assistance: Gait Assistance: Mod assist Assistive Device Assistive Device: 2 Wheeled walker Ambulation Distance: Ambulation Distance (Feet): 50 Pattern: Pattern: Shuffle steps, R Decreased stance time, L Decreased stance time, L Foot flat WBC (x10'3/uL) Date Value 12/01/2018 5.3 HGB (G/DL) Date Value 12/01/2018 13.4 PLT (x10'3/uL) Date Value 12/01/2018 186 INR (no units) Date Value 06/06/2017 1.2 Assessment and Plan: Mojgan Tabor is a 58-year-old male patient with Encephalopathy acute 1. Functional impairment/gait impairment. PT, OT for gait training and ADL training. Nursing for bowel and bladder care. 2. Encephalopathy acute meatal status better now. Continue current medical management as per primary team. 3. Encephalopathy acute UTI (urinary tract infection) Cerebrovascular accident (CVA) due to thrombosis of right posterior cerebral artery (CMS/HCC) Left side weakness at base line Hyperlipidemia Seizure (CMS/HCC) REHABILITATION RECOMMENDATIONS: This patient presents with Encephalopathy acute and has the ability to tolerate and participate in 3 hours of therapy a day and benefit from rehab stay. Patient is appropriate for rehab , Can be transferred once medically stable. Will start insurance auth at his time. Rehab intake will communicate to social and political studies professor further. RENETTA JOHNSON MD 12/01/2018 documented in this encounter ED Notes * Maryan Perez RN - 11/29/2018 5:28 PM CDT Transport to room to transport patient to assigned bed. * Maryan Perez RN - 11/29/2018 2:48 PM CDT Patient unable to void at this time. * Maryan Perez RN - 11/29/2018 2:03 PM CDT Patient given urinal and attempting to void. * Demetrius Anglin MD - 11/29/2018 1:43 PM CDT Chief Complaint Chief Complaint Patient presents with ??? Weakness History of Present Illness This patient is a 58yo AAM with PMH CVA, seizure disorder who presents with increased weakness. Pt reports h/o CVA with residual left side weakness, but it has worsened over the past few days. His sister apparently remarked in triage that he has been confused recently as well. The patient reports arecent fall but denies striking his head or any other injury. He denies any other acute complaint. Medical History ALLERGIES: No Known Allergies MEDICATIONS: Prior to Admission medications Medication Sig Start Date End Date Taking? Authorizing Provider AMLODIPINE 5 MG tablet TAKE 1 TABLET(5 MG) BY MOUTH DAILY 09/28/18 Josse Maradiaga, DO aspirin 81 MG chewable tablet Chew 1 tablet (81 mg total) by mouth daily. 09/12/18 Josse Maradiaga,DO clonazePAM 0.5 MG tablet TK 1 T PO Q 8 H PRN. PLEASE CALL OFFICE IF SEIZURES OCCUR AFTER TAKING. 08/09/18 Doc Abstract divalproex EC 500 MG tablet Take 500 mg by mouth 2 (two) times daily. 08/07/18 Doc Abstract folic acid 1 MG tablet Take 1 mg by mouth daily. Doc Abstract gabapentin 300 MG capsule Take 300 mg by mouth 3 (three) times daily. Doc Abstract levETIRAcetam 1000 MG tablet Take 2,000 mg by mouth 2 (two) times daily. Doc Abstract OXcarbazepine 300 MG tablet Take 450 mg by mouth 2 (two) times daily. 08/09/18 Doc Abstract vitamin B1 100 MG tablet Take 100 mg by mouth daily. Doc Abstract PAST MEDICAL HISTORY: Past Medical [...] Systems Review of Systems Constitutional: Positive for fatigue. Negative for chills and fever. HENT: Negative. Respiratory: Negative. Cardiovascular: Negative. Gastrointestinal: Negative. Genitourinary: Negative. Musculoskeletal: Negative. Skin: Negative. Neurological: Positive for weakness. Negative for dizziness, seizures, syncope, numbness and headaches. All other systems reviewed and are negative. Physical Exam Filed Vitals: 11/29/18 1645 11/29/18 1700 11/29/18 1743 11/29/18 1900 BP: 128/79 150/81 144/83 Pulse: 65 62 66 64 Resp: 16 18 18 16 Temp: 97.1 ??F (36.2 ??C) 97.3 ??F (36.3 ??C) TempSrc: Oral Oral SpO2: 100% 100% 100% 100% Weight: Height: Physical Exam Constitutional: He appears well-developed and well-nourished. Thin 58yo AAM in NAD. HENT: Head: Normocephalic and atraumatic. Mouth/Throat: Oropharynx is clear and moist. Eyes: Conjunctivae and EOM are normal. Pupils are equal, round, and reactive to light. Neck: Normal range of motion. Neck supple. No JVD present. No tracheal deviation present. Cardiovascular: Normal rate, regular rhythm, normal heart sounds and intact distal pulses. Pulmonary/Chest: Effort normal and breath sounds normal. Abdominal: Soft. He exhibits no distension and no mass. There is no tenderness. There is no reboundand no guarding. Musculoskeletal: Normal range of motion. He exhibits no edema. Lymphadenopathy: He has no cervical adenopathy. Neurological: He is alert. He has normal strength. The patient is alert and oriented to name, 2019, but believes he is in [facility]. He has strong right gaze preference and left facial droop. Mild dysarthria. Manufacturing Controls Engineer are symmetric, but upper arm weaker on left. LLE significantly weaker than the right. Pt reports decreased sensation LLE as well. Skin: Skin is warm and dry. Nursing note and vitals reviewed. Diagnostic Studies / Procedures ELECTROCARDIOGRAMS: I have interpreted the patient's EKG timed 14:11 as NSR at rate of 68 bpm. Q waves V1-3. 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1960 Requested By: DEMETRIUS ANGLIN Order Number: [id number] Reading MD: Measurements Intervals [place] Rate: 68 P: 70 [place]: 178 QRS: 24 QRSD: 93 T: 65 QT: 379 QTc: 406 Interpretive Statements SINUS RHYTHM ANTEROSEPTAL MYOCARDIAL INFARCTION, OF INDETERMINATE AGE Compared to ECG 06/06/2017 16:47:33 No significant changes LABORATORY STUDIES: Results for orders placed or performed during the hospital encounter of 11/29/18 CBC W/DIFF AUTOMATED Result Value Ref Range WBC 5.4 4.5 - 11.0 x10'3/uL RBC 4.21 (L) 4.70 - 6.10 x10'6/uL HGB 13.7 (L) 14.0 - 18.0 G/DL HCT 38.1 (L) 43.0 - 54.0 % MCV 90.5 80.0 - 94.0 FL MCH 32.5 (H) 27.0 - 31.0 PG MCHC 36.0 32.0 - 36.0 G/DL RDW 11.9 11.5 - 14.5 % PLT 178 130 - 400 x10'3/uL MPV 10.5 9.3 - 12.2 FL DIFFERENTIAL TYPE AUTOMATED DIFFERENTIAL NEUTROPHILS 50.0 % LYMPHOCYTES 33.5 % MONOCYTES 7.2 % EOSINOPHILS 8.3 % BASOPHILS 0.6 % IMMATURE GRANS 0.4 % ABS. NEUTROPHILS TOTAL 2.73 1.80 - 7.70 x10'3/uL ABS. LYMPHOCYTES 1.82 1.00 - 4.80 x10'3/uL ABS. MONOCYTES 0.39 0.30 - 0.82 x10'3/uL ABS. EOSINOPHILS 0.45 0.04 - 0.54 x10'3/uL ABS. BASOPHILS 0.03 0.01 - 0.08 x10'3/uL ABS. IMMATURE GRANULOCYTES 0.02 0.00 - 0.49 x10'3/uL COMPREHENSIVE METABOLIC PANEL Result Value Ref Range GLUCOSE 90 70 - 99 MG/DL BUN 8 7 - 18 MG/DL CREATININE 0.85 0.7 - 1.3 MG/DL SODIUM 126 (L) 136 - 145 MMOL/L POTASSIUM 4.0 3.5 - 5.1 MMOL/L CHLORIDE 95 (L) 100 - 108 MMOL/L CO2 24.7 21 - 32 MMOL/L CALCIUM 8.8 8.5 - 10.1 MG/DL TOTAL BILIRUBIN 0.5 0.2 - 1.2 MG/DL TOTAL PROTEIN 7.2 6.4 - 8.2 G/DL ALBUMIN 4.2 3.4 - 5.0 G/DL AST 33 15 - 37 U/L ALT 31 16 - 60 U/L ALK PHOS 67 50 - 136 U/L ANION GAP 6.3 5 - 15 MMOL/L BUN CREATININE RATIO 9.4 6 - 26 A/G RATIO 1.4 1.0 - 2.0 RATIO eGFR Non-Afr. Amer. >90 >90 ML/MIN/1.73 M2 eGFR Afr. Amer. >90 >90 ML/MIN/1.73 M2 URINALYSIS Result Value Ref Range Specimen Type URINE CLEAN CATCH COLOR YELLOW TRANSPARENCY CLEAR Specific [place] (U) 1.030 1.001 - 1.030 U PH 5.0 5.0 - 9.0 LEUKOCYTE ESTERASE NEGATIVE NEGATIVE NITRITES NEGATIVE NEGATIVE PROTEIN, URINE NEGATIVE <30 MG/DL URINE GLUCOSE NEGATIVE NEGATIVE MG/DL U KETONES 20 (A) NEGATIVE MG/DL UROBILINOGEN 4.0 (A) NEGATIVE MG/DL Urine Bilirubin NEGATIVE NEGATIVE MG/DL BLOOD NEGATIVE NEGATIVE CULTURE & SENSITIVITY INDICATED? CULTURE IS NOT INDICATED VALPROIC ACID Result Value Ref Range VALPROIC ACID 88.9 50 - 100 MCG/ML DOSE UNKNOWN LAST DOSE ETHANOL Result Value Ref Range Alcohol <0.003 <0.003 G/DL IMAGING STUDIES XR CHEST PORTABLE Final Result by User, [id number] (11/29 6317) Exam: Chest x-ray Comparison 03/24/2017 INDICATION: Altered mental status TECHNIQUE: One view FINDINGS: Heart size and pulmonary vessels are within normal limits. Lungs are clear. No interstitial edema, hyperinflation, or pleural fluid. IMPRESSION: Normal exam. Interpreted By: Blair Au MD, 11/29/2018 3:[address] HEAD WO CON Final Result by User, [id number] (11/29 3298) EXAMINATION: CT of the head without contrast DATE: 11/29/2018 CLINICAL HISTORY: Altered mental status COMPARISON: 18 06/06/2017 TECHNIQUE: CT examination of the head without contrast was performed with axial images obtained. A dose lowering technique was used for this procedure, which may include, but is not limited to, dose reduction technique, automated exposure control, the use of iterative reconstruction, and ALARA (As Low As Reasonably Achievable) / Image Gently techniques. FINDINGS: No mass effect or shift of midline is seen. No hemorrhage is seen. Advanced atrophy is reidentified with prominent ventricular morphology and prominent subarachnoid space. Advanced periventricular white matter low-density changes and prominent septal malacia changes in the right occipital lobe lobe are reidentified. Moderate vascular calcifications are identified. Images globes remain intact. Imaged paranasal air sinuses demonstrate no opacification. Imaged mastoid air cells demonstrate relatively symmetric aeration. IMPRESSION: Noncontrast CT of the brain demonstrates no significant time interval change or acute findings as detailed above. Advanced atrophy and periventricular white matter region ischemic changes is reidentified. Encephalomalacic change in the right occipital lobe are identified. Follow-up as clinically applicable. Course / Medical Decision Making The patient rested comfortably throughout his ED stay. In addition to hyponatremia, he was found tohave urinary retention. So, a Paredes catheter was placed. Plan for admission for hydration. Clinical Impression Hyponatremia (Primary) Urinary retention Disposition: Admit Demetrius Anglin MD 11/29/18 [id number] * Marcella Villa, [facility] - 11/29/2018 12:[address] [place]Y DEPART[place] ENCOUNTER Medical Screening Examination 11/29/18 12:54 PM Chief Complaint : Weakness HPI : Mojgan Tabor is a 58-year-old male who presents weakness and disoriented. Seen here last Tuesday for same symptoms. Vital Signs: Filed Vitals: 11/29/18 1244 BP: 133/78 Pulse: 85 Resp: 18 Temp: 99 ??F (37.2 ??C) TempSrc: Oral SpO2: 100% Weight: 64 kg (141 lb) Height: 5' 11 (1.803 m) Physical exam: A brief physical exam was completed to facilitate/expedite patient care. Robert findings include: Plan: LYNN Johnson 11/29/18 1255 Cosigned by Demetrius Anglin MD at 11/29/2018 9:32 PM CDT * Randolph Stephenson RN - 11/29/2018 12:50 PM CDT Patient from home with sister for c/o increased LLE weakness. Hx of hyponatremia. Sister reports patient has been disorientated r/t low Na+. Seen here last Tuesday for same c/o. documented in this encounter Plan of Treatment Not on file documented as of this encounter Procedures Procedure Name Priority Date/Time Associated Diagnosis Comments BASIC METABOLIC PANEL Routine 12/02/2018 9:57 AM CDT CBC W/DIFF AUTOMATED Routine 12/02/2018 9:57 AM CDT BASIC METABOLIC PANEL Routine 12/01/2018 8:57 AM CDT CBC W/DIFF AUTOMATED Routine 12/01/2018 8:57 AM CDT BASIC METABOLIC PANEL Routine 11/30/2018 7:33 AM CDT CBC W/DIFF AUTOMATED Routine 11/30/2018 7:33 AM CDT URINALYSIS STAT 11/29/2018 4:[address] HEAD WO CON STAT 11/29/2018 2:34 PM CDT XR CHEST PORTABLE STAT 11/29/2018 2:1 8 PM CDT ECG 12-LEAD STAT 11/29/2018 2:11 PM CDT ETHANOL Routine 11/29/2018 1:32 PM CDT COMPREHENSIVE METABOLIC PANEL STAT 11/29/2018 1:07 PM CDT CBC W/DIFF AUTOMATED STAT 11/29/2018 1:07 PM CDT VALPROIC ACID Routine 11/29/2018 1:07 PM CDT documented in this encounter Results * BASIC METABOLIC PANEL (12/02/2018 9:57 AM CDT) GLUCOSE 98 70 - 99 MG/DL 12/02/2018 11:[address] [facility] BUN 9 7 - 18 MG/DL 12/02/2018 11:[address] [facility] CREATININE S/P/B 0.90 0.7 - 1.3 MG/DL 12/02/2018 11:[address] [facility] SODIUM S/P/B 137 136 - 145 MMOL/L 12/02/2018 11:[address] [facility] POTASSIUM S/P/B 3.8 3.5 - 5.1 MMOL/L 12/02/2018 11:[address] [facility] CHLORIDE S/P/B 103 100 - 108 MMOL/L 12/02/2018 11:[address] [facility] CO2 28.9 21 - 32 MMOL/L 12/02/2018 11:[address] [facility] CALCIUM S/P/B 9.3 8.5 - 10.1 MG/DL 12/02/2018 11:[address] [facility] ANION GAP 5.1 5 - 15 MMOL/L 12/02/2018 11:[address] [facility] BUN CREATININE RATIO 10.1 6 - 26 12/02/2018 11:[address] [facility] EGFR NON-AFR. AMER. >90 >90 ML/MIN/1.7 3 M2 12/02/2018 11:[address] [facility] EGFR AFR. AMER. >90 >90 ML/MIN/1.7 3 M2 12/02/2018 11:[address] [facility] Comment: NOTE: eGFR is not calculated for patients <18 years of age. This is an estimated GFR (CKD EPI) and should not be used for calculating drug doses. 12/02/2018 9:57 AM CDT Zulma Gasca NP LABORATORY Final Resul t [facility] [address] [place] [address], * (ABNORMAL) CBC W/DIFF AUTOMATED (12/02/2018 9:57 AM CDT) WBC 5.3 4.5 - 11.0 x10'3/uL 12/02/2018 11:[address] [facility] RBC 4.45(L) 4.70 - 6.10 x10'6/uL 12/02/2018 11:[address] [facility] HGB 14.3 14.0 - 18.0 G/DL 12/02/2018 11:[address] [facility] HCT 42.8(L) 43.0 - 54.0 % 12/02/2018 11:[address] [facility] MCV 96.2(H) 80.0 - 94.0 FL 12/02/2018 11:[address] [facility] MCH 32.1(H) 27.0 - 31.0 PG 12/02/2018 11:[address] [facility] MCHC 33.4 32.0 - 36.0 G/DL 12/02/2018 11:[address] [facility] RDW 12.3 11.5 - 14.5 % 12/02/2018 11:[address] [facility] PLT 211 130 - 400 x10'3/uL 12/02/2018 11:[address] [facility] MPV 11.1 9.3 - 12.2 FL 12/02/2018 11:[address] [facility] DIFFERENTIAL TYPE AUTOMATED DIFFERENTIAL 12/02/2018 11:[address] [facility] NEUTROPHILS % 38.7 % 12/02/2018 11:[address] [facility] LYMPHOCYTES % 43.7 % 12/02/2018 11:[address] [facility] MONOCYTES % 6.4 % 12/02/2018 11:[address] [facility] EOSINOPHILS 10.0 % 12/02/2018 11:[address] [facility] BASOPHILS 0.8 % 12/02/2018 11:[address] [facility] IMMATURE GRANS % 0.4 % 12/03/19 11:[address] [facility] ABS. NEUTROPHILS TOTAL 2.06 1.80 - 7.70 x10'3/uL 12/02/2018 11:[address] [facility] ABS. LYMPHOCYTES 2.32 1.00 - 4.80 x10'3/uL 12/02/2018 11:[address] [facility] ABS. MONOCYTES 0.34 0.30 - 0.82 x10'3/uL 12/02/2018 11:[address] [facility] ABS. EOSINOPHILS 0.53 0.04 - 0.54 x10'3/uL 12/02/2018 11:[address] [facility] ABS. BASOPHILS 0.04 0.01 - 0.08 x10'3/uL 12/02/2018 11:[address] [facility] ABS. IMMATURE GRANULOCYTES 0.02 0.00 - 0.49 x10'3/uL 12/02/2018 11:[address] [facility] 12/02/2018 9:57 AM CDT us Zulma Gasca NP LABORATORY Final Resul t [facility] [address] [place] [address], * (ABNORMAL) BASIC METABOLIC PANEL (12/01/2018 8:57 AM CDT) GLUCOSE 121(H) 70 - 99 MG/DL 12/01/2018 9:[address] [facility] BUN 6(L) 7 - 18 MG/DL 12/01/2018 9:[address] [facility] CREATININE S/P/B 0.79 0.7 - 1.3 MG/DL 12/01/2018 9:[address] [facility] SODIUM S/P/B 136 136 - 145 MMOL/L 12/01/2018 9:[address] [facility] POTASSIUM S/P/B 4.0 3.5 - 5.1 MMOL/L 12/01/2018 9:[address] [facility] CHLORIDE S/P/B 105 100 - 108 MMOL/L 12/01/2018 9:[address] [facility] CO2 25.8 21 - 32 MMOL/L 12/01/2018 9:[address] [facility] CALCIUM S/P/B 8.6 8.5 - 10.1 MG/DL 12/01/2018 9:[address] [facility] ANION GAP 5.2 5 - 15 MMOL/L 12/01/2018 9:[address] [facility] BUN CREATININE RATIO 7.6 6 - 26 12/01/2018 9:[address] [facility] EGFR NON-AFR. AMER. >90 >90 ML/MIN/1.7 3 M2 12/01/2018 9:[address] [facility] EGFR AFR. AMER. >90 >90 ML/MIN/1.7 3 M2 12/01/2018 9:[address] [facility] Comment: NOTE: eGFR is not calculated for patients <18 years of age. This is an estimated GFR (CKD EPI) and should not be used for calculating drug doses. 12/01/2018 8:57 AM CDT Zulma Gasca NP LABORATORY Final Resul t [facility] [address] [place] [address], [place] [phone] * (ABNORMAL) CBC W/DIFF AUTOMATED (12/01/2018 8:57 AM CDT) WBC 5.3 4.5 - 11.0 x10'3/uL 12/01/2018 9:[address] [facility] RBC 4.09(L) 4.70 - 6.10 x10'6/uL 12/01/2018 9:[address] [facility] HGB 13.4(L) 14.0 - 18.0 G/DL 12/01/2018 9:[address] [facility] HCT 38.5(L) 43.0 - 54.0 % 12/01/2018 9:[address] [facility] MCV 94.1(H) 80.0 - 94.0 FL 12/01/2018 9:[address] [facility] MCH 32.8(H) 27.0 - 31.0 PG 12/01/2018 9:[address] [facility] MCHC 34.8 32.0 - 36.0 G/DL 12/01/2018 9:[address] [facility] RDW 12.0 11.5 - 14.5 % 12/01/2018 9:[address] [facility] PLT 186 130 - 400 x10'3/uL 12/01/2018 9:[address] [facility] MPV 10.8 9.3 - 12.2 FL 12/01/2018 9:[address] [facility] DIFFERENTIAL TYPE AUTOMATED DIFFERENTIAL 12/01/2018 9:[address] [facility] NEUTROPHILS % 42.7 % 12/01/2018 9:[address] [facility] LYMPHOCYTES % 39.4 % 12/01/2018 9:[address] [facility] MONOCYTES % 7.5 % 12/01/2018 9:[address] [facility] EOSINOPHILS 9.6 % 12/01/2018 9:[address] [facility] BASOPHILS 0.6 % 12/01/2018 9:[address] [facility] IMMATURE GRANS % 0.2 % 12/02/19 9:[address] [facility] ABS. NEUTROPHILS TOTAL 2.27 1.80 - 7.70 x10'3/uL 12/01/2018 9:[address] [facility] ABS. LYMPHOCYTES 2.09 1.00 - 4.80 x10'3/uL 12/01/2018 9:[address] [facility] ABS. MONOCYTES 0.40 0.30 - 0.82 x10'3/uL 12/01/2018 9:[address] [facility]. EOSINOPHILS 0.51 0.04 - 0.54 x10'3/uL 12/01/2018 9:[address] [facility]. BASOPHILS 0.03 0.01 - 0.08 x10'3/uL 12/01/2018 9:[address] [facility]. IMMATURE GRANULOCYTES 0.01 0.00 - 0.49 x10'3/uL 12/01/2018 9:[address] [facility] 12/01/2018 8:57 AM CDT Zulma Gasca [employer] Final Resul t [facility] [address] [place] [address], * (ABNORMAL) BASIC METABOLIC PANEL (11/30/2018 7:33 AM CDT) GLUCOSE 81 70 - 99 MG/DL 11/30/2018 8:[address] [facility] BUN 6(L) 7 - 18 MG/DL 11/30/2018 8:[address] [facility] CREATININE S/P/B 0.64(L) 0.7 - 1.3 MG/DL 11/30/2018 8:[address] [facility] SODIUM S/P/B 131(L) 136 - 145 MMOL/L 11/30/2018 8:[address] [facility] POTASSIUM S/P/B 3.9 3.5 - 5.1 MMOL/L 11/30/2018 8:[address] [facility] CHLORIDE S/P/B 101 100 - 108 MMOL/L 11/30/2018 8:23 AM [facility] CO2 24.5 21 - 32 MMOL/L 11/30/2018 8:23 AM [facility] CALCIUM S/P/B 8.3(L) 8.5 - 10.1 MG/DL 11/30/2018 8:[address] [facility] ANION GAP 5.5 5 - 15 MMOL/L 11/30/2018 8:[address] [facility] BUN CREATININE RATIO 9.4 6 - 26 11/30/2018 8:23 AM [facility] EGFR NON-AFR. AMER. >90 >90 ML/MIN/1.7 3 M2 11/30/2018 8:[address] [facility] EGFR AFR. AMER. >90 >90 ML/MIN/1.7 3 M2 11/30/2018 8:23 AM [facility] Comment: NOTE: eGFR is not calculated for patients <18 years of age. This is an estimated GFR (CKD EPI) and should not be used for calculating drug doses. 11/30/2018 7:33 AM CDT Emmanuel Morel MD LABORATORY Final Result [facility] [address] [place] [address], * (ABNORMAL) CBC W/DIFF AUTOMATED (11/30/2018 7:33 AM CDT) [facility] WBC 5.8 4.5 - 11.0 x10'3/uL 11/30/2018 8:[address] [facility] RBC 4.04(L) 4.70 - 6.10 x10'6/uL 11/30/2018 8:[address] [facility] HGB 13.2(L) 14.0 - 18.0 G/DL 11/30/2018 8:[address] [facility] HCT 37.4(L) 43.0 - 54.0 % 11/30/2018 8:[address] [facility] MCV 92.6 80.0 - 94.0 FL 11/30/2018 8:[address] [facility] MCH 32.7(H) 27.0 - 31.0 PG 11/30/2018 8:[address] [facility] MCHC 35.3 32.0 - 36.0 G/DL 11/30/2018 8:[address] [facility] RDW 11.8 11.5 - 14.5 % 11/30/2018 8:[address] [facility] PLT 173 130 - 400 x10'3/uL 11/30/2018 8:[address] [facility] MPV 10.6 9.3 - 12.2 FL 11/30/2018 8:[address] [facility] DIFFERENTIAL TYPE AUTOMATED DIFFERENTIAL 11/30/2018 8:[address] [facility] NEUTROPHILS % 44.0 % 11/30/2018 8:[address] [facility] LYMPHOCYTES % 39.0 % 11/30/2018 8:[address] [facility] MONOCYTES % 6.4 % 11/30/2018 8:[address] [facility] EOSINOPHILS 9.9 % 11/30/2018 8:[address] [facility] BASOPHILS 0.5 % 11/30/2018 8:[address] [facility] IMMATURE GRANS % 0.2 % 12/01/19 19 8:[address] [facility] ABS. NEUTROPHILS TOTAL 2.54 1.80 - 7.70 x10'3/uL 11/30/2018 8:[address] [facility] ABS. LYMPHOCYTES 2.25 1.00 - 4.80 x10'3/uL 11/30/2018 8:[address] [facility] ABS. MONOCYTES 0.37 0.30 - 0.82 x10'3/uL 11/30/2018 8:[address] [facility] ABS. EOSINOPHILS 0.57(H) 0.04 - 0.54 x10'3/uL 11/30/2018 8:[address] [facility] ABS. BASOPHILS 0.03 0.01 - 0.08 x10'3/uL 11/30/2018 8:[address] [facility] ABS. IMMATURE GRANULOCYTES 0.01 0.00 - 0.49 x10'3/uL 11/30/2018 8:[address] [facility] 11/30/2018 7:33 AM CDT Emmanuel Morel MD LABORATORY Final Result [facility] [address] [place] [address], [place] [phone] * (ABNORMAL) URINALYSIS (11/29/2018 4:37 PM CDT) SPECIMEN TYPE URINE CLEAN CATCH 11/29/2018 4:[address] [facility] COLOR (U) YELLOW 11/29/2018 5:[address] [facility] TRANSPARENCY CLEAR 11/29/2018 5:[address] [facility] SPECIFIC GRAVITY (U) 1.030 1.001 - 1.030 11/29/2018 5:[address] [facility] U PH 5.0 5.0 - 9.0 11/29/2018 5:[address] [facility] LEUKOCYTES (U) NEGATIVE NEGATIVE 11/29/2018 5:[address] [facility] NITRITES NEGATIVE NEGATIVE 11/29/2018 5:[address] [facility] PROTEIN (U) NEGATIVE <30 MG/DL 11/29/2018 5:[address] [facility] URINE GLUCOSE NEGATIVE NEGATIVE MG/DL 11/29/2018 5:[address] [facility] KETONES MG/DL (U) 20(A) NEGATIVE MG/DL 11/29/2018 5:[address] [facility] UROBILINOGEN 4.0(A) NEGATIVE MG/DL 11/29/2018 5:[address] [facility] BILIRUBIN (U) NEGATIVE NEGATIVE MG/DL 11/29/2018 5:[address] [facility] BLOOD (U) NEGATIVE NEGATIVE 11/29/2018 5:[address] [facility] CULTURE & SENSITIVITY INDICATED? CULTURE IS NOT INDICATED 11/29/2018 5:[address] [facility] URINE SPECIMEN OBTAINED BY CLEAN CATCH PROCEDURE / Unknown 11/29/2018 4:37 PM CDT Marcella Villa [employer] URINE ORDERABLES Final Re sult [facility] [address] [place] [address], * CT HEAD WO CON (11/29/2018 2:34 PM CDT) Anatomical Region Laterality Modality Head Computed Tomogra phy 11/29/2018 2:40 PM CDT Impressions 11/29/2018 2:43 PM CDT IMPRESSION: Noncontrast CT of the brain demonstrates no significant time interval change or acute findings as detailed above. Advanced atrophy and periventricular white matter region ischemic changes is reidentified. Encephalomalacic change in the right occipital lobe are identified. Follow-up as clinically applicable. Narrative 11/29/2018 2:43 PM CDT EXAMINATION: CT of the head without contrast DATE: 11/29/2018 CLINICAL HISTORY: Altered mental status COMPARISON: 18 06/06/2017 TECHNIQUE: CT examination of the head without contrast ??was performed with axial images obtained. A dose lowering technique was used for this procedure, which may include, but is not limited to, dose reduction technique, automated exposure control, the use of iterative reconstruction, and ALARA (As Low As Reasonably Achievable) / Image Gently techniques. FINDINGS: No mass effect or shift of midline is seen. No hemorrhage is seen. Advanced atrophy is reidentified with prominent ventricular morphology and prominent subarachnoid space. Advanced periventricular white matter low-density changes and prominent septal malacia changes in the right occipital lobe lobe are reidentified. Moderate vascular calcifications are identified. Images globes remain intact. Imaged paranasal air sinuses demonstrate no opacification. Imaged mastoid air cells demonstrate relatively symmetric aeration. Procedure Note Loy Butler MD - 11/29/2018 EXAMINATION: CT of the head without contrast DATE: 11/29/2018 CLINICAL HISTORY: Altered mental status COMPARISON: 18 06/06/2017 TECHNIQUE: CT examination of the head without contrast was performedwith axial images obtained. A dose lowering technique was used for this procedure, which may include, but is not limited to, dose reduction technique, automated exposure control, the use of iterativereconstruction, and ALARA (As Low As Reasonably Achievable) / Image Gently techniques. FINDINGS: No mass effect or shift of midline is seen. No hemorrhage is seen.Advanced atrophy is reidentified with prominent ventricular morphology andprominent subarachnoid space. Advanced periventricular white matter low-density changes and prominent septal malacia changes in the right occipital lobe lobe are reidentified. Moderate vascular calcifications are identified. Images globes remain intact. Imaged paranasal air sinuses demonstrate no opacification. Imaged mastoid air cells demonstrate relatively symmetric aeration. IMPRESSION: Noncontrast CT of the brain demonstrates no significant time interval change or acute findings as detailed above. Advanced atrophy and periventricular white matter region ischemic changes is reidentified. Encephalomalacic change in the right occipital lobe are identified. Follow-up as clinically applicable. Demetrius Anglin MD CT Final Re sult * XR CHEST PORTABLE (11/29/2018 2:18 PM CDT) Anatomical Region Laterality Modality Chest Radiographic Cynthia ging 11/29/2018 3:15 PM CDT Impressions 11/29/2018 3:17 PM CDT IMPRESSION: Normal exam. Interpreted By: Blair Au MD, 11/29/2018 3:15 PM Narrative 11/29/2018 3:17 PM CDT Exam: Chest x-ray Comparison 03/24/2017 INDICATION: Altered mental status TECHNIQUE: One view FINDINGS: Heart size and pulmonary vessels are within normal limits. ??Lungs are clear. ??No interstitial edema, hyperinflation, or pleural fluid. Procedure Note Blair Au MD - 11/29/2018 Exam: Chest x-ray Comparison 03/24/2017 INDICATION: Altered mental status TECHNIQUE: One view FINDINGS: Heart size and pulmonary vessels are within normal limits.Lungs are clear. No interstitial edema, hyperinflation, or pleuralfluid. IMPRESSION: Normal exam. Interpreted By: Blair Au MD, 11/29/2018 3:15 PM us Demetrius Anglin MD GENERAL IMAGING Final Re sult * ECG 12 lead (11/29/2018 2:11 PM CDT) 11/29/2018 2:11 PM CDT Narrative [facility] - 11/30/2018 12:04 AM CDT ?[place] ? [address] [place] ? Test Date: ?2018-11-29 Pat Name: ? MOJGAN TABOR ? Department: ? Room: ? A322 Gender: ? Male ? 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 Requested By: DEMETRIUS ANGLIN Order Number: [id number] ? Reading : ?? Portillo Nicolas ? Measurements Intervals ?[place] ? Rate: ? 68 ? P: ?70 [place]: ? 178 ?QRS: ?24 QRSD: ? 93 ? T: ?65 QT: ? 379 ? QTc: ?406 ? 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 : 1960 Requested By: DEMETRIUS ANGLIN Order Number: [id number] Reading MD: Portillo Nicolas Measurements Intervals [place] Rate: 68 P: 70 [place]: 178 QRS: 24 QRSD: 93 T: 65 QT: 379 QTc: 406 Interpretive Statements SINUS RHYTHM ANTEROSEPTAL MYOCARDIAL INFARCTION, OF INDETERMINATE AGE Compared to ECG 06/06/2017 16:47:33 No significant changes Demetrius Anglin MD ECG ORDERABLES Final Re sult Performing Organization Address [facility]/ZIP Co de Phone Number [facility] * ETHANOL (11/29/2018 1:32 PM CDT) [facility] ALCOHOL S/P/B <0.003 <0.003 G/DL 11/29/2018 8:[address] [facility] 11/29/2018 1:32 PM CDT Emmanuel Morel MD LABORATORY Final Result Performing Organization Address [facility] de Phone Number [facility] [address] [place] [address], * VALPROIC ACID (11/29/2018 1:07 PM CDT) [facility] VALPROIC ACID 88.9 50 - 100 MCG/ML 11/29/2018 1:[address] [facility] Comment: ?THERAPEUTIC: 50-100 ?TOXIC: >150 DOSE UNKNOWN LAST DOSE 11/29/2018 3:[address] [facility] 11/29/2018 1:07 PM CDT Demetrius Anglin MD LABORATORY Final Re sult Performing Organization Address [facility] Co de Phone Number [facility] [address] [place] [address], [place] [phone] * (ABNORMAL) COMPREHENSIVE METABOLIC PANEL (11/29/2018 1:07 PM CDT) [facility] GLUCOSE 90 70 - 99 MG/DL 11/29/2018 1:[address] [facility] BUN 8 7 - 18 MG/DL 11/29/2018 1:[address] [facility] CREATININE S/P/B 0.85 0.7 - 1.3 MG/DL 11/29/2018 1:[address] [facility] SODIUM S/P/B 126(L) 136 - 145 MMOL/L 11/29/2018 1:[address] [facility] POTASSIUM S/P/B 4.0 3.5 - 5.1 MMOL/L 11/29/2018 1:[address] [facility] CHLORIDE S/P/B 95(L) 100 - 108 MMOL/L 11/29/2018 1:[address] [facility] CO2 24.7 21 - 32 MMOL/L 11/29/2018 1:[address] [facility] CALCIUM S/P/B 8.8 8.5 - 10.1 MG/DL 11/29/2018 1:[address] [facility] BILIRUBIN TOTAL S/P/B 0.5 0.2 - 1.2 MG/DL 11/29/2018 1:[address] [facility] TOTAL PROTEIN S/P/B 7.2 6.4 - 8.2 G/DL 11/29/2018 1:[address] [facility] ALBUMIN S/P/B 4.2 3.4 - 5.0 G/DL 11/29/2018 1:[address] [facility] AST 33 15 - 37 U/L 11/29/2018 1:[address] [facility] ALT 31 16 - 60 U/L 11/29/2018 1:[address] [facility] ALKALINE PHOSPHATASE S/P/B 67 50 - 136 U/L 11/29/2018 1:[address] [facility] ANION GAP 6.3 5 - 15 MMOL/L 11/29/2018 1:[address] [facility] BUN CREATININE RATIO 9.4 6 - 26 11/29/2018 1:[address] [facility] A/G RATIO 1.4 1.0 - 2.0 RATIO 11/29/2018 1:[address] [facility] EGFR NON-AFR. AMER. >90 >90 ML/MIN/1.7 3 M2 11/29/2018 1:[address] [facility] EGFR AFR. AMER. >90 >90 ML/MIN/1.7 3 M2 11/29/2018 1:[address] [facility] Comment: NOTE: eGFR is not calculated for patients <18 years of age. This is an estimated GFR (CKD EPI) and should not be used for calculating drug doses. 11/29/2018 1:07 PM CDT Marcella Villa [facility] LABORATORY Final Res ult [facility] [address] [place] [address], [place] [phone] * (ABNORMAL) CBC W/DIFF AUTOMATED (11/29/2018 1:07 PM CDT) WBC 5.4 4.5 - 11.0 x10'3/uL 11/29/2018 1:[address] [facility] RBC 4.21(L) 4.70 - 6.10 x10'6/uL 11/29/2018 1:[address] [facility] HGB 13.7(L) 14.0 - 18.0 G/DL 11/29/2018 1:[address] [facility] HCT 38.1(L) 43.0 - 54.0 % 11/29/2018 1:[address] [facility] MCV 90.5 80.0 - 94.0 FL 11/29/2018 1:[address] [facility] MCH 32.5(H) 27.0 - 31.0 PG 11/29/2018 1:[address] [facility] MCHC 36.0 32.0 - 36.0 G/DL 11/29/2018 1:[address] [facility] RDW 11.9 11.5 - 14.5 % 11/29/2018 1:[address] [facility] PLT 178 130 - 400 x10'3/uL 11/29/2018 1:[address] [facility] MPV 10.5 9.3 - 12.2 FL 11/29/2018 1:[address] [facility] DIFFERENTIAL TYPE AUTOMATED DIFFERENTIAL 11/29/2018 1:[address] [facility] NEUTROPHILS % 50.0 % 11/29/2018 1:[address] [facility] LYMPHOCYTES % 33.5 % 11/29/2018 1:[address] [facility] MONOCYTES % 7.2 % 11/29/2018 1:[address] [facility] EOSINOPHILS 8.3 % 11/29/2018 1:[address] [facility] BASOPHILS 0.6 % 11/29/2018 1:[address] [facility] IMMATURE GRANS % 0.4 % 11/30/19 19 1:[address] [facility] ABS. NEUTROPHILS TOTAL 2.73 1.80 - 7.70 x10'3/uL 11/29/2018 1:[address] [facility] ABS. LYMPHOCYTES 1.82 1.00 - 4.80 x10'3/uL 11/29/2018 1:[address] [facility] ABS. MONOCYTES 0.39 0.30 - 0.82 x10'3/uL 11/29/2018 1:[address] [facility] ABS. EOSINOPHILS 0.45 0.04 - 0.54 x10'3/uL 11/29/2018 1:[address] [facility] ABS. BASOPHILS 0.03 0.01 - 0.08 x10'3/uL 11/29/2018 1:[address] [facility] ABS. IMMATURE GRANULOCYTES 0.02 0.00 - 0.49 x10'3/uL 11/29/2018 1:[address] [facility] 11/29/2018 1:07 PM CDT Marcella Villa [employer] LABORATORY Final Res ult [facility] [address] [place] [address], documented in this encounter Visit Diagnoses Diagnosis Encephalopathy acute- Primary Encephalopathy, unspecified Hyponatremia Hyposmolality and/or hyponatremia Urinary retention Retention of urine, unspecified UTI (urinary tract infection) Urinary tract infection, site not specified Cerebrovascular accident (CVA) due to thrombosis of right posterior cerebral artery ([facility]) Hyperlipidemia Other and unspecified hyperlipidemia Seizure ([facility]) Other convulsions documented in this encounter Administered Medications Inactive Administered Medications - up to 3 most recent administrations Medication Order MAR Action Action Date Dose Rate Site acetaminophen (TYLENOL) tablet 650 mg 650 mg, Oral, Every 8 hours PRN, Mild pain (Scale 1 - 3), Headaches, Starting on 12/02/18 at 1502, Until 12/04/18 at 1338, Maximum dose of acetaminophen is 4000 mg from all sources in 24 hours. Given 12/02/2018 3:51 PM CDT 650 mg amlodipine (NORVASC) tablet 5 mg 5 mg, Oral, Daily, First dose on Tue11/30/18 at 0900, Until Discontinued Given 12/04/2018 10:24 AM CDT 5 mg Given 12/03/2018 8:05 AM CDT 5 mg Given 12/02/2018 8:28 AM CDT 5 mg aspirin chewable tablet 81 mg 81 mg, Oral, Daily, First dose on Tue11/30/18 at 0900, Until Discontinued Given 12/04/2018 10:26 AM CDT 81 mg Given 12/03/2018 8:05 AM CDT 81 mg Given 12/02/2018 8:28 AM CDT 81 mg divalproex EC (DEPAKOTE) delayed release tablet 500 mg 500 mg, Oral, 2 times daily, First dose on Tue11/29/18 at 2100, Until Discontinued, Do not break, chew, or crush. HAZARDOUS MEDICATION Given 12/04/2018 10:24 AM CDT 500 mg Given 12/03/2018 8:04 PM CDT 500 mg Given 12/03/2018 8:05 AM CDT 500 mg folic acid (FOLVITE) tablet 1 mg 1 mg, Oral, Daily, First dose on Tue11/30/18 at 0900, Until Discontinued Given 12/04/2018 10:26 AM CDT 1 mg Given 12/03/2018 8:06 AM CDT 1 mg Given 12/02/2018 8:28 AM CDT 1 mg gabapentin (NEURONTIN) capsule 300 mg 300 mg, Oral, 3 times daily, First dose on Tue11/29/18 at 2100, Until Discontinued Given 12/04/2018 10:25 AM CDT 300 mg Given 12/03/2018 8:04 PM CDT 300 mg Given 12/03/2018 4:05 PM CDT 300 mg heparin (porcine) injection 5,000 Units 5,000 Units, Subcutaneous, Every 12 hours scheduled (2 times per day), First dose on Tue11/29/18 at 2100, Until Discontinued Given 12/04/2018 10:24 AM CDT 5,000 Units Right Lower Abdomen Given 12/03/2018 8:04 PM CDT 5,000 Units R ight Lower Abdomen Given 12/03/2018 8:06 AM CDT 5,000 Units R ight Upper Abdomen levETIRAcetam (KEPPRA) tablet 2,000 mg 2,000 mg, Oral, 2 times daily, First dose on Tue11/29/18 at 2100, Until Discontinued, Tablets should be swallowed whole. Do not cut, chew, or crush tablets. Given 12/04/2018 10:25 AM CDT 2,000 mg Given 12/03/2018 8:04 PM CDT 2,000 mg Given 12/03/2018 8:05 AM CDT 2,000 mg OXcarbazepine (TRILEPTAL) tablet 450 mg 450 mg, Oral, 2 times daily, First dose on Tue11/29/18 at 2100, Until Discontinued, HAZARDOUS MEDICATION Given 12/04/2018 10:24 AM CDT 450 mg Given 12/03/2018 8:04 PM CDT 450 mg Given 12/03/2018 8:05 AM CDT 450 mg sodium chloride 0.9% infusion at 75 mL/hr, Intravenous, Continuous, Starting on Tue11/29/18 at 1545, Until Tue12/01/18 at 0958 New Bag 11/30/2018 11:51 PM CDT 75 mL/hr Rate/Dose Change 11/30/2018 3:35 PM CDT 75 mL/h r New Bag 11/30/2018 12:17 PM CDT 125 mL/hr tamsulosin (FLOMAX) capsule 0.4 mg 0.4 mg, Oral, Daily, First dose on Tue11/30/18 at 0900, Until Discontinued Given 12/04/2018 10:26 AM CDT 0.4 mg Given 12/03/2018 8:05 AM CDT 0.4 mg Given 12/02/2018 8:28 AM CDT 0.4 mg vitamin B-1 (THIAMINE) tablet 100 mg 100 mg, Oral, Daily, First dose on Tue11/30/18 at 0900, Until Discontinued Given 12/04/2018 10:24 AM CDT 100 mg Given 12/03/2018 8:06 AM CDT 100 mg Given 12/02/2018 8:28 AM CDT 100 mg documented in this encounter Active and Recently Administered Medications Times are shown in CDT. Scheduled Medication Order 12/02/2018 12/03/2018 12/04/2018 amlodipine (NORVASC) tablet 5 mg 5 mg, Oral, Daily, First dose on Tue11/30/18 at 0900, Until Discontinued 0828 (Given - Provider: Maribell Shrestha RN) 08 (Given - Provider: Lianna Archuleta RN) 1024 (Given - Provider: Agnieszka Anthony RN) aspirin chewable tablet 81 mg 81 mg, Oral, Daily, First dose on Tue11/30/18 at 0900, Until Discontinued 827 (Given - Provider: Maribell Shrestha RN) 08 (Given - Provider: Lianna Archuleta RN) 1026 (Given - Provider: Agnieszka Anthony RN) divalproex EC (DEPAKOTE) delayed release tablet 500 mg 500 mg, Oral, 2 times daily, First dose on Tue11/29/18 at 2100, Until Discontinued, Do not break, chew, or crush. HAZARDOUS MEDICATION 0828 (Given - Provider: Maribell Shrestha RN)2055 (Given - Provider: Abbi Rivas LPN) 08 (Given - Provider: Lianna Archuleta RN)2003 (Given - Provider: Kristina Adan RN) 1024 (Given - Provider: Agnieszka Anthony RN) folic acid (FOLVITE) tablet 1 mg 1 mg, Oral, Daily, First dose on Tue11/30/18 at 0900, Until Discontinued 827 (Given - Provider: Maribell Shrestha RN) 0806 (Given - Provider: Lianna Archuleta RN) 1026 (Given - Provider: Agnieszka Anthony RN) gabapentin (NEURONTIN) capsule 300 mg 300 mg, Oral, 3 times daily, First dose on Tue11/29/18 at 2100, Until Discontinued 28 (Given - Provider: Maribell Shrestha RN)172 (Given - Provider: Maribell Shrestha RN)2056 (Given - Provider: Abbi Rivas LPN) 08 (Given - Provider: Lianna Archuleta RN)1605 (Given - Provider: Lianna Archuleta RN)2003 (Given - Provider: Kristina Adan, ALFRED) 102 (Given - Provider: Agnieszka Anthony, ALFRED) heparin (porcine) injection 5,000 Units(Linked Group 1) 5,000 Units, Subcutaneous, Every 12 hours scheduled (2 times per day), First dose on Tue11/29/18 at 2100, Until Discontinued 828 (Given - Provider: Maribell Shrestha RN)2056 (Given - Provider: Abbi Rivas LPN) 805 (Given - Provider: Lianna Archuleta RN)2003 (Given - Provider: Kristina Adan, ALFRED) 1024 (Given - Provider: Agnieszka Anthony RN) levETIRAcetam (KEPPRA) tablet 2,000 mg 2,000 mg, Oral, 2 times daily, First dose on Tue11/29/18 at 2100, Until Discontinued, Tablets should be swallowed whole. Do not cut, chew, or crush tablets. 826 (Given - Provider: Maribell Shrestha RN)2055 (Given - Provider: Abbi Rivas LPN) 08 (Given - Provider: Lianna Archuleta RN)2003 (Given - Provider: Kristina Adan, ALFRED) 102 (Given - Provider: Agnieszka Anthony RN) OXcarbazepine (TRILEPTAL) tablet 450 mg 450 mg, Oral, 2 times daily, First dose on Tue11/29/18 at 2100, Until Discontinued, HAZARDOUS MEDICATION 827 (Given - Provider: Maribell Shrestha RN)2054 (Given - Provider: Abbi Rivas LPN) 08 (Given - Provider: Lianna Archuleta RN)2003 (Given - Provider: Kristina Adan, ALFRED) 1024 (Given - Provider: Agnieszka Anthony RN) tamsulosin (FLOMAX) capsule 0.4 mg 0.4 mg, Oral, Daily, First dose on Tue11/30/18 at 0900, Until Discontinued 827 (Given - Provider: Maribell Shrestha RN) 08 (Given - Provider: Lianna Archuleta RN) 1026 (Given - Provider: Agnieszka Anthony, ALFRED) vitamin B-1 (THIAMINE) tablet 100 mg 100 mg, Oral, Daily, First dose on Marian 11/30/18 at 0900, Until Discontinued 0828 (Given - Provider: Maribell Shrestha, ALFRED) 0806 (Given - Provider: iLanna Archuleta RN) 1024 (Given - Provider: Agnieszka Anthony RN) PRN Medication Order 12/02/2018 12/03/2018 12/04/2018 acetaminophen (TYLENOL) tablet 650 mg 650 mg, Oral, Every 8 hours PRN, Mild pain (Scale 1 - 3), Headaches, Starting on 12/02/18 at 1502, Until 12/04/18 at 1338, Maximum dose of acetaminophen is 4000 mg from all sources in 24 hours. 1551 (Given - Provider: Maribell Shrestha RN) Linked Groups Order Group 1: heparin (porcine) injection 5,000 UnitsJump to med 5,000 Units, Subcutaneous, Every 12 hours scheduled (2 times per day), First dose on Tue11/29/18 at 2100, Until Discontinued And Moderate Risk for VTE (COMPLETED) documented in this encounter Care Teams Stock Worker Relationship Specialty Start Date End Date Josse Maradiaga DO [address] [place] [address] PCP - General FAMILY PRACTICE 09/28/18 01/13/20 Frank Toure MD [address] [place] [address] [employer] CARDIOVASCULAR DISEASE 05/30/16 documented as of this encounter
--- OUTSIDE RECORDS SUMMARY | 2024-06-08 05:52 | XMS_ITS | Encounter Summary ---
Author Organization [facility] - [facility] Address [address] [facility] [facility]. [place], [place] [address] [place] [address] Care Team Providers Care Paper Inserter Name Role Phone Frank Toure MD Unavailable Kayla Porras NP Primary Care Provider [phone] Encounter Details Date Type Department Care Team (Latest Contact Info) Description 03/31/2018 Abstract [facility] , Jerica Cordon MD Social History Tobacco Use Types Packs/Day Years [...] on filedocumented in this encounter Care Teams Paper Inserter Relationship Specialty Start Date End Date Kayla Porras NP [address] [place] [address] [place] [address] PCP - General 06/25/16 09/27/18 Frank Toure MD [address] [place] [address] [place] Stonemason Helper CARDIOVASCULAR DISEASE 05/30/16 documented as of this encounter
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
--- OUTSIDE RECORDS SUMMARY | 2024-06-08 05:52 | XMS_ITS | Encounter Summary ---
Author Organization [facility] - [facility] Address [address] [facility]. [place], [place] [address] [place] [address] Care Team Providers Care Light Armored Vehicle Officer Name Role Phone Frank Toure MD Unavailable Kayla Porras NP Primary Care Provider [phone] Encounter Details Date Type Department Care Team (Latest Contact Info) Description 03/04/2018 Abstract [facility] Medical Group , Jerica Cordon [...] on filedocumented in this encounter Care Teams Light Armored Vehicle Officer Relationship Specialty Start Date End Date Kayla Porras NP [address] [place] [address] [place] [address] PCP - General 06/25/16 09/27/18 Frank Toure MD [address] [place] [address] [place] Inseam Leveler CARDIOVASCULAR DISEASE 05/30/16 documented as of this encounter
--- OUTSIDE RECORDS SUMMARY | 2024-06-08 05:52 | XMS_ITS | Encounter Summary ---
Author Organization [facility] Address [address] [facility] [place] [address] [place] [address] Care Team Providers Care Household Worker Name Role Phone Frank Toure MD Unavailable Misael Maradiaga DO Primary Care Provider [phone] Encounter Details Date Type Department Care Team (Latest Contact Info) Description 11/23/2018 9:45 AM CDT - 11/23/2018 12:55 PM CDT Hospital Encounter [facility] [place], [place] [id number] Porter Porras NP [address] [place] [address] Discharge Disposition: Home or Self Care (Routine [...] 2:38 PM Loraine Liao RN Active * Do you have difficulty [...] Liao RN Active documented in this encounter Medications [...] as of this encounter Progress Notes * Yonatan Horvath RN - 11/23/2018 11:58 AM CDT Pt sister notified of results and she states she will be going back to pickers material handlers the patient to take him to the ER. * Lula Hutson MA - 11/23/2018 11:51 AM CDT A message was left to inform patient. * Porter Porras NP - 11/23/2018 11:38 AM CDT Please inform the patient His Na is 129 He needs to go to ER for evaluation Thank you PORTER PORRAS NP documented in this encounter Plan of Treatment Not on file documented as of this encounter Procedures Procedure Name Priority Date/Time Associated Diagnosis Comments COMPREHENSIVE METABOLIC PANEL Routine 11/23/2018 9:58 AM CDT Lumbar radiculopathy CBC W/DIFF AUTOMATED Routine 11/23/2018 9:58 AM CDT Lumbar radiculopathy documented in this encounter Results * (ABNORMAL) COMPREHENSIVE METABOLIC PANEL (11/23/2018 9:58 AM CDT) GLUCOSE 80 70 - 99 MG/DL 11/23/2018 10:47 AM CDT [facility] BUN 8 7 - 18 MG/DL 11/23/2018 10:47 AM CDT [facility] CREATININE S/P/B 0.79 0.7 - 1.3 MG/DL 11/23/2018 10:47 AM CDT [facility] SODIUM S/P/B 129(L) 136 - 145 MMOL/L 11/23/2018 10:47 AM [facility] POTASSIUM S/P/B 3.9 3.5 - 5.1 MMOL/L 11/23/2018 10:47 AM T [facility] CHLORIDE S/P/B 98(L) 100 - 108 MMOL/L 11/23/2018 10:47 AM [facility] CO2 26.9 21 - 32 MMOL/L 11/23/2018 10:47 AM [facility] CALCIUM S/P/B 8.7 8.5 - 10.1 MG/DL 11/23/2018 10:47 AM [facility] BILIRUBIN TOTAL S/P/B 0.5 0.2 - 1.2 MG/DL 11/23/2018 10:47 AM [facility] TOTAL PROTEIN S/P/B 6.8 6.4 - 8.2 G/DL 11/23/2018 10:47 AM [facility] ALBUMIN S/P/B 3.9 3.4 - 5.0 G/DL 11/23/2018 10:47 AM T [facility] AST 20 15 - 37 U/L 11/23/2018 10:47 AM [facility] ALT 14(L) 16 - 60 U/L 11/23/2018 10:47 AM T [facility] ALKALINE PHOSPHATASE S/P/B 57 50 - 136 U/L 11/23/2018 10:47 AM [facility] ANION GAP 4.1(L) 5 - 15 MMOL/L 11/23/2018 10:47 AM T [facility] BUN CREATININE RATIO 10.1 11/23/2018 10:47 AM [facility] A/G RATIO 1.3 1.0 - 2.0 RATIO 11/23/2018 10:47 AM T [facility] EGFR NON-AFR. AMER. >90 >90 ML/MIN/1.7 3 M2 11/23/2018 10:47 AM CDT [facility] EGFR AFR. AMER. >90 >90 ML/MIN/1.7 3 M2 11/23/2018 10:47 AM CDT [facility] Comment: NOTE: eGFR is not calculated for patients <18 years of age. This is an estimated GFR (CKD EPI) and should not be used for calculating drug doses. 11/23/2018 9:58 AM CDT us Porter Porras NP LABORATORY Final Result [facility] [address] [place] [address], [place] [phone] * (ABNORMAL) CBC W/DIFF AUTOMATED (11/23/2018 9:58 AM CDT) WBC 5.0 4.5 - 11.0 x10'3/uL 11/23/2018 10:18 AM CDT [facility] RBC 4.29(L) 4.70 - 6.10 x10'6/uL 11/23/2018 10:18 AM CDT [facility] HGB 13.8(L) 14.0 - 18.0 G/DL 11/23/2018 10:18 AM CDT [facility] HCT 39.6(L) 43.0 - 54.0 % 11/23/2018 10:18 AM CDT [facility] MCV 92.3 80.0 - 94.0 FL 11/23/2018 10:18 AM CDT [facility] MCH 32.2(H) 27.0 - 31.0 PG 11/23/2018 10:18 AM CDT [facility] MCHC 34.8 32.0 - 36.0 G/DL 11/23/2018 10:18 AM CDT [facility] RDW 11.7 11.5 - 14.5 % 11/23/2018 10:18 AM CDT [facility] PLT 164 130 - 400 x10'3/uL 11/23/2018 10:18 AM T [facility] MPV 10.6 9.3 - 12.2 FL 11/23/2018 10:18 AM CDT [facility] DIFFERENTIAL TYPE AUTOMATED DIFFERENTIAL 11/23/2018 10:18 AM CDT [facility] NEUTROPHILS % 40.6 % 11/23/2018 10:18 AM T [facility] LYMPHOCYTES % 44.2 % 11/23/2018 10:18 AM T [facility] MONOCYTES % 7.0 % 11/23/2018 10:18 AM T [facility] EOSINOPHILS 7.4 % 11/23/2018 10:18 AM T [facility] BASOPHILS 0.6 % 11/23/2018 10:18 AM T [facility] IMMATURE GRANS % 0.2 % 11/24/19 19 10:18 AM T [facility] ABS. NEUTROPHILS TOTAL 2.04 1.80 - 7.70 x10'3/uL 11/23/2018 10:18 AM CDT [facility] ABS. LYMPHOCYTES 2.22 1.00 - 4.80 x10'3/uL 11/23/2018 10:18 AM CDT [facility] ABS. MONOCYTES 0.35 0.30 - 0.82 x10'3/uL 11/23/2018 10:18 AM T [facility] ABS. EOSINOPHILS 0.37 0.04 - 0.54 x10'3/uL 11/23/2018 10:18 AM CDT [facility] ABS. BASOPHILS 0.03 0.01 - 0.08 x10'3/uL 11/23/2018 10:18 AM CDT [facility] ABS. IMMATURE GRANULOCYTES 0.01 0.00 - 0.49 x10'3/uL 11/23/2018 10:18 AM CDT [facility] 11/23/2018 9:58 AM CDT us Porter Vern MARINE DIESEL TECHNICIAN LABORATORY Final Result [facility] [address] [place] [address], documented in this encounter Visit Diagnoses Diagnosis Lumbar radiculopathy Thoracic or lumbosacral neuritis or radiculitis, unspecified documented in this encounter Care Teams Household Worker Relationship Specialty Start Date End Date Misael Maradiaga DO [address] [place] [address] PCP - General FAMILY PRACTICE 09/28/18 01/13/20 Frank Toure MD [address] [place] [address] [employer] Sales Agent CARDIOVASCULAR DISEASE 05/30/16 documented as of this encounter
--- OUTSIDE RECORDS SUMMARY | 2024-06-08 05:52 | XMS_ITS | Encounter Summary ---
Author Organization [facility] Address [address] [facility] [place] [address] [place] [address] Care Team Providers Care Parcel Post Clerk Name Role Phone Frank Toure MD Unavailable Kayla Porras NP Primary Care Provider [phone] Reason for Visit * Reason Comments Report (SCAN) Consultation Report 09-13-2018 for seizures Encounter Details Date Type Department Care Team (Late st Contact Info) Description 09/15/2018 Scan HEALTH INFO SRVCS Scanned, Documents Report (SCAN) (Consultation Report 09-13-2018 for seizures) Social History Tobacco Use Types Packs/Day Years [...] on filedocumented in this encounter Care Teams Parcel Post Clerk Relationship Specialty Start Date End [place] [address] PCP - General 06/25/16 09/27/18 Frank Toure MD [address] [place] [address] [employer] Community Assistant CARDIOVASCULAR DISEASE 05/30/16 documented as of this encounter
--- OUTSIDE RECORDS SUMMARY | 2024-06-08 05:52 | XMS_ITS | Encounter Summary ---
Author Organization [facility] Address [address] [facility] [place] [address] [place] [address] Care Team Providers Care Float Operator Name Role Phone Frank Toure MD Unavailable aKyla Porras NP Primary Care Provider [phone] Encounter Details Date Type Department Care Team (Late st Contact Info) Description 10/20/2017 Abstract [facility] Family Medicine - [address] [phone] Misael Maradiaga, [address] [place] [phone] Social History Tobacco Use Types Packs/Day Years [...] Reading Time Taken Comments Blood Pressure 134/82 10/20/2017 8:14 AM CDT Pulse 81 10/20/2017 8:14 AM CDT Temperature - - Respiratory Rate - - Oxygen Saturation - - Inhaled Oxygen Concentration - - Weight 61.7 kg (136 lb) 10/20/2017 8:14 AM CDT Height - - Body Mass Index 18.97 10/12/2017 3:13 PM CDT documented in this encounter [...] Author Status No 08/28/2017 2:38 PM CDT Loriane Staley RN Active documented as of this encounter Mental Status * Because of a physical, mental, or emotional condition, do you have serious difficulty concentrating, remembering, or making decisions? Answer Entry Date Author Status No 08/28/2017 2:38 PM CDT Loraine Staley RN Active documented in this encounter Progress Notes * Misael Maradiaga, - 10/20/2017 9:00 AM CDT Chief Complaint 57 year old male here for follow up visit on ER visit. [facility] to [facility] for fracture clavicle. History of Present Illness Pt is here for admission f/u from [facility] He had 2 seizures, and suffered a right clavicular fracture He admits he was not taking the SZ meds as he should have His Keppra is now at 1500 po bid they also started him on depakote 500 po bid He was discharged in a sling, but has does not like to wear it because it bothers me He is not wearing it now He has highlighted instructions to call and make appt with Dr Jodie sánchez and Dr Owens ortho but admits he did not call them Review of systems General: denies any fevers, chills. Gastrointestinal: Patient denies any nausea, vomiting, diarrhea or constipation Genitourinary: Patient denies dysuria, hematuria, urgency or frequency Cardiovascular: Patient denies Chest pain, shortness of breath. Physical Exam General: Well-developed, well-nourished, in no acute distress. Eyes: Conjunctiva and lids: no swelling, erythema or discharge Oropharynx: normal without erythema, edema, exudate or lesions Neck: Supple without adenopathy, trachea midline Lungs: Clear to auscultation bilaterally without wheezing, rhonchi or crackles. No increase work ofbreathing or signs of respiratory distress Heart: Regular rate and rhythm without murmurs, clicks or bruits. Abdomen: Nondistended, Nontender. Extremities: No clubbing, cyanosis, or edema noted Neuro: CN2-12 intact Skeletal: + TTP distal clavicle, + pain with arm movement Psych: Normal mood, normal affect Active Problems 1. Alcohol abuse (305.00) (F10.10) 2. Disability examination (V68.01) (Z02.71) 3. Dysphagia (787.20) (R13.10) 4. Dysphagia (787.20) (R13.10) 5. Fracture of metatarsal (825.25) (S92.309A) 6. Gastric erosion (535.40) (K25.9) 7. History of CVA (cerebrovascular accident) (V12.54) (Z86.73) 8. Hyperlipidemia (272.4) (E78.5) 9. Hypertension (401.9) (I10) 10. Imbalance (781.2) (R26.89) 11. Influenza vaccine needed (V04.81) (Z23) 12. Low back pain (724.2) (M54.5) 13. Need for hepatitis C screening test (V73.89) (Z11.59) 14. Neuropathy (355.9) (G62.9) 15. Scalp cyst (706.2) (L72.9) 16. Screening for colon cancer (V76.51) (Z12.11) 17. Screening PSA (prostate specific antigen) (V76.44) (Z12.5) 18. Seizure (780.39) (R56.9) 19. Seizures (780.39) (R56.9) Past Medical History 1. History of Elevated CK (790.5) (R74.8) 2. History of colonic polyps (V12.72) (Z86.010) 3. History of stroke (V12.54) (Z86.73) Surgical History 1. History of Colonoscopy ?? 11/22/16: [facility] [place] [facility] (3 small polyps removed) 2. History of Esophagogastroduodenoscopy ?? 11/22/16: [facility] [place] [facility] (antral erosion, mild duodenal bulb erythema) 3. Denied: History of Surgery Family History Mother 1. Family history of cardiac disorder (V17.49) (Z82.49) 2. Family history of hypertension (V17.49) (Z82.49) Father 3. Family history of hypertension (V17.49) (Z82.49) Sister 4. Family history of diabetes mellitus (V18.0) (Z83.3) Social History ?? Alcohol use (V49.89) (Z78.9) ?? Current every day smoker (305.1) (F17.200) ?? Single Current Meds 1. Acetaminophen 500 MG CAPS; TAKE CAPSULE PRN; Therapy: (Recorded:22Oct2016) to Recorded 2. AmLODIPine Besylate 5 MG Oral Tablet; TAKE 1 TABLET DAILY DIRECTED Requested for: 25Mar2017; Last Rx:25Mar2017 Ordered 3. Aspirin 81 MG Oral Tablet Delayed Release; TAKE 1 TABLET DAILY DIRECTED; Therapy: 28Jun2016 to (Evaluate:07Jun2017) Requested for: 09Nov2016; Last Rx:09Nov2016 Ordered 4. Atorvastatin Calcium 40 MG Oral Tablet; TAKE 1 TABLET DAILY; Therapy: 06Zvu1518 to (Evaluate:18Pcs8380) Recorded 5. BusPIRone HCl - 10 MG Oral Tablet; Therapy: 17Nov2016 to Recorded 6. Divalproex Sodium 125 MG Oral Tablet Delayed Release; TAKE 4 TABLET 4 times daily; Therapy: 17Oct2017 to Recorded 7. Gabapentin 300 MG Oral Capsule; TK 1 C PO BID; Therapy: 01Mar2017 to (Evaluate:05Sfv3832) Requested for: 69Hdt4367; Last Rx:[id number] Ordered 8. Keppra 750 MG Oral Tablet; TAKE 1 TABLET TWICE DAILY; Therapy: 29Aug2016 to Recorded 9. Mapap 325 MG Oral Tablet; TAKE 2 TABLETS BY MOUTH EVERY 4 HOURS NEEDED FOR PAIN; Therapy: 39Xqq1783 to (Evaluate:80Ghu5908) Requested for: 07Oct2017; Last Rx:07Oct2017 Ordered 10. Metoprolol Succinate ER 25 MG Oral Tablet Extended Release 24 Hour; TAKE 1 TABLET DAILY; Therapy: 38Ltj3198 to (Evaluate:09Aug2017) Recorded 11. Tamsulosin HCl - 0.4 MG Oral Capsule; Take 1 cap daily Requested for: 19Nov2016; Last Rx:19Nov2016 Ordered 12. Vitamin B-1 100 MG Oral Tablet; TAKE 1 TABLET BY MOUTH DAILY DIRECTED; Therapy: 81Ovt9686 to (Evaluate:19Oct2017) Requested for: 19Sep2017; Last Rx:19Sep2017 Ordered 13. Vitamin B1 100 MG TABS; TAKE 1 TABLET DAILY DIRECTED; Therapy: 47Not8923 to (Evaluate:20Vkh7604) Requested for: 07Feb2017; Last Rx:[id number] Ordered Allergies 1. No Known Drug Allergies Immunizations Influenza --- Series1: 23-Jun-2016; Series2: 15-Jun-2017 PPSV --- Series1: 13-Aug-2015 Tdap --- Series1: 23-Mar-2017 Vitals Recorded: 20Oct2017 08:14AM Temperature 97.7 F Heart Rate 81 Respiration 14 Systolic 134 Diastolic 82 O2 Saturation 98 Weight 136 lb BMI Calculated 18.97 BSA Calculated 1.79 Assessment 1. Clavicular fracture (810.00) (S42.009A) 2. Seizure (780.39) (R56.9) Plan Clavicular fracture 1. Orthopedic Surgery Referral Outpatient right distal clavicle fracture, is to f/u with Dr Owens in 2 weeks at [facility], please eval and tx Status: Need Information - Financial Authorization Requested for: 20Oct2017 Ordered; For: Clavicular fracture; Ordered By: Misael Maradiaga Performed: Due: 03Nov2017 Seizure 2. From Keppra 750 MG Oral Tablet TAKE 1 TABLET TWICE DAILY To LevETIRAcetam 750 MG Oral Tablet (Keppra) TAKE 2 TABLETS TWICE DAILY Rx By: Misael Maradiaga; Dispense: 45 Days ; #:180 Tablet; Refill: 0; For: Seizure; RACHEL = N; Record 3. Neurology Referral Outpatient SZ d/o, has appt with Dr Bhavna MARSHALL on 01/09/2018 at 2pm, please eval and tx Status: Need Information - Financial Authorization Requested for: [id number] Ordered; For: Seizure; Ordered By: Misael Maradiaga Performed: Due: 03Nov2017 Discussion/Summary reviewed DC notes and hospital DC paperwork he brought in He needs to be on meds as discussed above referral placed for neurology He has clavicular fx, but has not been wearing sling I placed his sling on him and told him to cont wearing this until his f/u with ortho, which referral was made Signatures Electronically signed by : Misael Maradiaga D.O.; Oct 20 2017 8:33AM DIGITAL MARKETING ANALYST (Author) documented in this encounter Plan of Treatment Not on file documented as of this encounter Visit Diagnoses Not on filedocumented in this encounter Care Teams Float Operator Relationship Specialty Start Date End Date Kayla [place] [address] [place] [address] PCP - General 06/25/16 09/27/18 Frank Toure MD [address] [place] [address] [place] Drawbridge Tender CARDIOVASCULAR DISEASE 05/30/16 documented as of this encounter
--- OUTSIDE RECORDS SUMMARY | 2024-06-08 05:52 | XMS_ITS | Encounter Summary ---
Author Organization [facility] Address [address] [place] [address] [place] [address] Care Team Providers Care Identity Management Consultant Name Role Phone Frank Toure MD Unavailable Misael Maradiaga DO Primary Care Provider [phone] Joyce Luevano NP Primary Care Provider Unavaila Marielena Adame MD Primary Care Provider [phone] Encounter Details Date Type Department Care Team (Late st Contact Info) Description 12/14/2018 Hospital Follow-up Call [facility] Inpatient Rehabilitation [place], [place] [id number] Cony Adan RN Social History Tobacco Use Types Packs/Day [...] on filedocumented in this encounter Care Teams Identity Management Consultant Relationship Specialty Start Date End Date Misael Maradiaga DO [address] [place] [address] PCP - General FAMILY PRACTICE 09/28/18 01/13/20 Joyce Luevano NP [address] [place] [address] PCP - General NURSE PRACTITIONER 01/14/20 10/26/23 Marielena Smallwood MD [address] [place] [address] PCP - General FAMILY PRACTICE 10/27/23 Frank Toure MD [address] [place] [address] [employer] Director Of Math CARDIOVASCULAR DISEASE 05/30/16 documented as of this encounter
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
--- OUTSIDE RECORDS SUMMARY | 2024-06-08 05:52 | XMS_ITS | Encounter Summary ---
Author Organization [facility] - [facility] Address [address] [facility] [place], [place] [address] [place] [address] Care Team Providers Care Tube Closing Machine Operator Name Role Phone Frank Toure MD Unavailable Kayla Porras NP Primary Care Provider [phone] Encounter Details Date Type Department Care Team (Latest Contact Info) Description 10/17/2017 Abstract [facility] Medical Group Social History Tobacco Use Types [...] documented in this encounter Progress Notes * Jerica Cordon Md, MD - 10/17/2017 7:48 AM CDT Message Date of Hospital/NH Discharge: 10/15/2017 Date of Contact: 10/17/2017 Individual Contacted: Bi Contacted by: Court Reviewed/ Addressed Self-Management Addressed, Independent Living Addressed, ADLS Addresses, Medication Management, Facilitation of Necessary Care and Services and Treatment Regimen Reviewed as Prescribed on Discharge Pt was hospitalized for seizure activity and a fx clavicle r/t to seizure activity. He was d/c on 10/15/2017, pt states he is doing fine now, denies need for PT/OT at this time, arm is in a sling. Pt states they changed his medications to Keppra 750 mg BID and Divalproex 125 mg 4 pills BID. Pt will b ring d/c med list. Pt scheduled for TCM visit on 10/20/17 at 0900. Signatures Electronically signed by : Court Kate, ; Oct 17 2017 7:54AM ASSISTANT CLINICAL DIRECTOR (Author) documented in this encounter Plan of Treatment Not on file documented as of this encounter Visit Diagnoses Not on filedocumented in this encounter Care Teams Tube Closing Machine Operator Relationship Specialty Start Date End Date Kayla [place] [address] PCP - General 06/25/16 09/27/18 Frank oTure MD [address] [place] [address] Chivo Cook Cashier Food Prep CARDIOVASCULAR DISEASE 05/30/16 documented as of this encounter
--- OUTSIDE RECORDS SUMMARY | 2024-06-08 05:52 | XMS_ITS | Encounter Summary ---
Author Organization [facility] Address [address] [facility] [place] [address] [place] [address] Care Team Providers Care Case Resolution Specialist Name Role Phone Frank Toure MD Unavailable Misael Maradiaga DO Primary Care Provider [phone] Reason for Visit * Reason Onset Date Comments Results 11/23/2018 Encounter Details Date Type Department Care Team (Late st Contact Info) Description 11/23/2018 Telephone [facility] Family Medicine - [place] [address] [place] [address] Porter Porras NP [address] [place] [address] Results Social History Tobacco Use Types Packs/Day [...] Status No 08/28/2017 2:38 PM CDT Loraine Stalye RN Active * Do you have difficulty [...] states she will be going back to 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 * Yonatan Horvath RN - 11/23/2018 11:58 AM CDT ----- Message from Porter Porras NP sent at 11/23/2018 11:38 AM CDT ----- Please inform the patient His Na is 129 He needs to go to ER for evaluation Thank you PORTER PORRAS NP documented in this encounter Plan of Treatment Not on file documented as of this encounter Visit Diagnoses Not on filedocumented in this encounter Care Teams Case Resolution Specialist Relationship Specialty Start Date End Date Misael Maradiaga DO [address] [place] [address] PCP - General FAMILY PRACTICE 09/28/18 01/13/20 Frank Toure MD [address] [place] [address] [place] Bed And Breakfast Operator CARDIOVASCULAR DISEASE 05/30/16 documented as of this encounter
--- OUTSIDE RECORDS SUMMARY | 2024-06-08 05:52 | XMS_ITS | Encounter Summary ---
Author Organization [facility] - [facility] Address [address] [facility]. [place], [place] [address] [place] [address] Care Team Providers Care Equipment Operator Wage Hand Name Role Phone Frank Toure MD Unavailable Kayla Porras NP Primary Care Provider [phone] Encounter Details Date Type Department Care Team (Latest Contact Info) Description 11/29/2017 Abstract [facility] Medical Group Misael Maradiaga, DO [address] [address] Social History Tobacco Use Types Packs/Day Years [...] on filedocumented in this encounter Care Teams Equipment Operator Wage Hand Relationship Specialty Start Date End Date Kayla [place] [address] PCP - General 06/25/16 09/27/18 Frank Toure MD [address] [place] [address] [place] Janitor Custodian CARDIOVASCULAR DISEASE 05/30/16 documented as of this encounter
--- OUTSIDE RECORDS SUMMARY | 2024-06-08 05:52 | XMS_ITS | Encounter Summary ---
Author Organization [facility] Address [address] [facility] [place] [address] [place] [address] Care Team Providers Care Grubber Name Role Phone Frank Toure MD Unavailable Misael Maradiaga DO Primary Care Provider [phone] Reason for Visit * Reason Onset Date Comments FYI 11/29/2018 Encounter Details Date Type Department Care Team (Late st Contact Info) Description 11/29/2018 Telephone [facility] Family Medicine - [place] [address] [place] [address] Misael Maradiaga DO [address] [place] [phone] FYI Social History Tobacco Use Types Packs/Day [...] Date Author Status Yes 11/29/2018 5:53 PM CDT Meggan Downing RN Active documented in this encounter Progress Notes * Kayla Porras NP - 11/29/2018 11:59 AM CDT absolutely agree. ER Thank you! * Lula Hutson MA - 11/29/2018 11:51 AM CDT Patients sister called stating patient is very lethargic and is having more seizures and wanted to know what to do, I advised sister patient would need a ER evaluation for this, patients sister agreed and will take patient to [facility] ER now. documented in this encounter Plan of Treatment Not on file documented as of this encounter Visit Diagnoses Not on filedocumented in this encounter Care Teams Grubber Relationship Specialty Start Date End Date Misael Maradiaga DO [address] [place] [address] PCP - General FAMILY PRACTICE 09/28/18 01/13/20 Frank Toure MD [address] [place] [address] [place] Electrical Test Technician CARDIOVASCULAR DISEASE 05/30/16 documented as of this encounter
--- OUTSIDE RECORDS SUMMARY | 2024-06-08 05:52 | XMS_ITS | Encounter Summary ---
Author Organization [facility] Address [address] [facility] [place] [address] [place] [address] Care Team Providers Care Federal Judicial Law Clerk Name Role Phone Frank Toure MD Unavailable Kayla Porras NP Primary Care Provider [phone] Reason for Visit * Reason Comments Lab (SCAN) Encounter Details Date Type Department Care Team (Latest Contact Info) Description 04/30/2018 Scan HEALTH INFO SRVCS Scanned, Documents Lab [...] Associated Diagnosis Comments OUTSIDE LAB (SCAN ORDER) Routine 04/30/2018 documented in this encounter Results * OUTSIDE LAB (04/30/2018) 04/30/2018 us Documents Scanned SCANNING Final Result documented in this encounter Visit Diagnoses Not on filedocumented in this encounter Care Teams Federal Judicial Law Clerk Relationship Specialty Start Date End Date Kay[place] [address] PCP - General 06/25/16 09/27/18 Frank Toure MD [address] [place] [address] [employer] Grinder Set Up Operator Gear Tool CARDIOVASCULAR DISEASE 05/30/16 documented as of this encounter
--- OUTSIDE RECORDS SUMMARY | 2024-06-08 05:52 | XMS_ITS | Encounter Summary ---
Author Organization [facility] Address [address] [facility] [place] [address] [place] [address] Care Team Providers Care City Surveyor Name Role Phone Frank Toure MD Unavailable Kayla Porras NP Primary Care Provider [phone] Reason for Visit * Reason Comments Discharge Summary (SCAN) [facility] W/ASS[facility] C LABS Encounter Details Date Type Department Care Team (Late st Contact Info) Description 08/10/2018 Scan HEALTH INFO SRVCS Scanned, Documents Discharge Summary (SCAN) ([facility] W/[employer] LABS) Social History Tobacco Use Types Packs/Day Years [...] on filedocumented in this encounter Care Teams City Surveyor Relationship Specialty Start Date End [place] [address] PCP - General 06/25/16 09/27/18 Frank Toure MD [address] [place] [address] Chivo Pot Firer CARDIOVASCULAR DISEASE 05/30/16 documented as of this encounter
--- OUTSIDE RECORDS SUMMARY | 2024-06-08 05:52 | XMS_ITS | Encounter Summary ---
Author Organization [facility] Address [address] [facility] [facility] [place], [place] [address] [place] [address] Care Team Providers Care Hospitality Intern Name Role Phone Frank Toure MD Unavailable Kayla Porras NP Primary Care Provider [phone] Reason for Visit * Reason Comments Lab (SCAN) [facility] EVETIRACETAM, OXCARBAZEPINE BLOOD Encounter Details Date Type Department Care Team (Late st Contact Info) Description 09/05/2018 Scan HEALTH INFO SRVCS Scanned, Documents Lab (SCAN) ([facility] LEVETIRACETAM, OXCARBAZEPINE BLOOD) Social History Tobacco Use Types Packs/Day Years [...] Diagnosis Comments OUTSIDE LAB (SCAN ORDER) Routine 09/05/2018 documented in this encounter Results * OUTSIDE LAB (09/05/2018) 09/05/2018 us Documents Scanned SCANNING Final Result documented in this encounter Visit Diagnoses Not on filedocumented in this encounter Care Teams Hospitality Intern Relationship Specialty Start Date End Date Kayla [place] [address] PCP - General 06/25/16 09/27/18 Frank Toure MD [address] [place] [address] [employer] Wire Splicer CARDIOVASCULAR DISEASE 05/30/16 documented as of this encounter
--- OUTSIDE RECORDS SUMMARY | 2024-06-08 05:52 | XMS_ITS | Encounter Summary ---
Author Organization [facility] Address [address] [facility] [place] [address] [place] [address] Care Team Providers Care Bias Cutter Helper Name Role Phone Frank Toure MD Unavailable Misael Maradiaga DO Primary Care Provider [phone] Reason for Visit * Reason Comments CT Results Encounter Details Date Type Department Care Team (Latest Contact Info) Description 11/12/2018 Scan HEALTH INFO SRVCS Scanned, Documents CT Results Social History Tobacco Use Types Packs/Day [...] as of this encounter Functional Status * Question Answer Date of Assessment Author Status Do you have serious difficulty walking or climbing stairs? Yes 12/04/2018 2:03 PM KASIT Anahi Jernigan RN A ctive * Question Answer Date of Assessment Author Status Do you have difficulty dressing or bathing? Yes 12/04/2018 2:03 PM KASIT Anahi Jernigan RN Active Because of a physical, mental, or emotional condition, do you have difficulty doing errands alone such as visiting a doctor's office or shopping? Yes 12/04/2018 2:03 PM Anahi Chavarria RN Ac tive * RETIRED Are you [...] serious difficulty concentrating, remembering, or making decisions? No 12/04/2018 2:03 PM CDT Anahi Jernigan RN Active * Because of a physical, mental, or emotional condition, do you have serious difficulty concentrating, remembering, or making decisions? Answer Entry Date Author Status No 08/28/2017 2:38 PM CDT Loraine Staley RN Active documented in this encounter Plan of Treatment Not on file documented as of this encounter Procedures Procedure Name Priority Date/Time Associated Diagnosis Comments CT GENERIC Routine 11/12/2018 documented in this encounter Results * CT (11/12/2018) Anatomical Region Laterality Modality Other us Documents Scanned SCANNING Edited Result - Final documented in this encounter Visit Diagnoses Not on filedocumented in this encounter Care Teams Bias Cutter Helper Relationship Specialty Start Date End Date Misael Maradiaga DO [address] [place] [address] PCP - General FAMILY PRACTICE 09/28/18 01/13/20 Frank Toure MD [address] [place] [address] Chivo Size Changer CARDIOVASCULAR DISEASE 05/30/16 documented as of this encounter
--- OUTSIDE RECORDS SUMMARY | 2024-06-08 05:52 | XMS_ITS | Encounter Summary ---
Author Organization [facility] Address [address] [place] [address] [place] [address] Care Team Providers Care Nurse'S Assistant Name Role Phone Frank Toure MD Unavailable Misael Maradiaga DO Primary Care Provider + [phone] Reason for Referral * (Routine) - Canceled Specialty Diagnoses / Procedures Referred By Contac t Referred To Contact Procedures RECEIVING WEIGHER eval and treat Renetta Johnson MD Phone: tel: fax: Referral ID Status Reason Start Date Expiration Date V isits Requested Visits Authorized [id number] Canceled 12/04/2018 01/05/2020 1 1 * (Routine) - Canceled Specialty Diagnoses / Procedures Referred By Contac t Referred To Contact Procedures OT eval and treat Renetta Johnson MD Phone: tel: fax: Referral ID Status Reason Start Date Expiration Date V isits Requested Visits Authorized [id number] Canceled 12/04/2018 01/05/2020 1 1 * (Routine) - Canceled Specialty Diagnoses / Procedures Referred By Contac t Referred To Contact Procedures PT eval and treat Renetta Johnson MD Phone: tel: fax: Referral ID Status Reason Start Date Expiration Date V isits Requested Visits Authorized [id number] Canceled 12/04/2018 01/05/2020 1 1 Reason for Visit * Auth/Cert Specialty Diagnoses / Procedures Referred By Contac t Referred To Contact Diagnoses Encephalopathy Procedures INPT Referral ID Status Reason Start Date Expiration Date Visits Re quested Visits Authorized [id number] 1 1 Encounter Details Date Type Department Care Team (Latest Contact Info) Description 12/04/2018 1:38 PM CDT - 12/12/2018 1:10 PM CDT Hospital Encounter [facility] [place] [address] Renetta Johnson MD [address] [place] [address] Discharge Disposition: Home with Home Health Care Social History Tobacco Use Types Packs/Day [...] Sign Reading Time Taken Comments Blood Pressure 137/74 12/12/2018 8:01 AM CDT Pulse 72 12/12/2018 8:01 AM CDT Temperature 36.9 ??C (98.5 ??F) 12/12/2018 8:01 AM CD T Respiratory Rate 16 12/12/2018 8:01 AM CDT Oxygen Saturation 100% 12/12/2018 8:01 AM CDT Inhaled Oxygen Concentration - - Weight 60.2 kg (132 lb 11.5 oz) 019 10:50 PM CDT Height 180.3 cm (5' 11 ) 12/04/2018 1:57 PM CDT Body Mass Index 18.51 12/04/2018 1:57 PM CDT documented in this encounter Functional Status * Question Answer Date of Assessment Author Status Do you have serious difficulty walking or climbing stairs? Yes 12/04/2018 2:03 PM KASIT Anahi Jernigan RN A ctive * Question Answer Date of Assessment Author Status Do you have difficulty dressing or bathing? Yes 12/04/2018 2:03 PM Anahi Chavarria RN Active Because of a physical, mental, or emotional condition, do you have difficulty doing errands alone such as visiting a doctor's office or shopping? Yes 12/04/2018 2:03 PM KASIT Anahi Jernigan RN Ac tive * RETIRED Are you [...] or making decisions? No 12/04/2018 2:03 PM Anahi Chavarria RN Active * Because of a physical, mental, or emotional condition, do you have serious difficulty concentrating, remembering, or making decisions? Answer Entry Date Author Status No 12/04/2018 2:03 PM Anahi Chavarria RN Active documented in this encounter Discharge Summaries * Shannon Benton - 12/12/2018 1:00 PM CDT SPEECH THERAPY Discharge Summary Note ?? Episode of Care:?Discharge Summary Date of Onset:??12/04/18 Diagnosis:??Encephalopathy Past Medical History:??Hypertension, hyperlipidemia, CVA, seizure disorder, drug/alcohol abuse Referring Physician:??Dr Johnson ?? Subjective:??The pt is pleasant and cooperative for sessions. Pt stated that he has no concern regarding cognitive, speaking, or swallowing deficits. Pt demonstrates decreased awareness of cognitive deficits. FO has been completed with pt's sister and brother. Pt's brother stated that he noticed improvements with pt's overall thinking. Safety education was completed with pt regarding problem solving skills for real life situations. Pt verbally confirmed information, however due to pt's cognitive and awareness deficits, ST is unsure of pt's true acknowledgement of safety education provided. Ptis planned for home d/c today. ?? Diet/Swallowing Precautions/Comment:??Regular diet, thin liquids; tolerating well (Bedside swallow evaluation completed on 12/06/18). Recommend small sips/bites. ?? Objective: Oral motor -??WFL - (Mild labial asymmetry) Speech -??WFL Auditory Comprehension -??WFL (Met complex yes/no 90% min) Reading Comprehension -??Mild-Moderate (functional reading comprehension 60-80% mod deficits) Verbal Expression -??WFL Graphic Expression -??Moderate (Cognitive deficits) Numerical Processing -??Deferred Cognition -??Moderate (Recent memory 65-70% mod; functional problem solving??50- 70%??mod; simple reasoning 65-80% min-mod) ?? Assessment:??The pt met 1/5 STG and 0/2 LTG. Pt's baseline of cognitive status is unknown due to pt's history of seizures and drug/alcohol abuse. Pt continues to require mod verbal cues to assist pt to successfully problem solve real life scenarios to increase safety awareness. Pt additionally requires mod assistance to complete functional reading comprehension tasks. ST is unsure if reading and writing tasks are impaired due to vision or cognitive barriers. ?? Plan:??Recommend frequent supervision due to memory and cognitive deficits that affect safety. The pt would benefit from continued ST services upon D/C. * Briana Ray, OTR - 12/12/2018 11:41 AM CDT 12/12/18 1100 Rehab FIMS Rehab FIMS OT FIMS Rehab episode of care Discharge Summary Functional Lamar Measure Score Eating FIMS 6 - Requires device or extra time Eating comment GOAL 6 MOD I DENTURES Grooming FIMS 5 - Set-up Grooming Comment Goal 6, Mod I WASH/DRY FACE AND HANDS, COMB HAIR, SHAVING, BRUSH TEETH SITTING W/C LEVEL AT SINK; SET UP; SAFETY Bathing FIMS 5 - Supervision/verbal cues Bathing comment Goal 6, Mod I ABLE TO ACCESS ALL AREAS, SIT/STAND, CLOSE SUPERVISION FOR SAFETY Dressing upper body FIMS 6 - Requires device, extra time Dressing upper body comment Goal 7, Independent PULLOVER SHIRT FROM SEATED Dressing lower body FIMS 5 - Supervision/Setup/cues Dressing lower body comment Goal 7, Independent SEATED W/C->STAND AT SINK; ELASTIC WASIT PANTS/PULLOVER SHIRT/TENNIS SHOES/SOCKS; Transfers - toilet FIMS 5 - Requires set-up, supervision or cueing for transfer Transfer toilet comment Goal 6, Mod I WW/3IN1 COMMODE; CUES FOR SAFETY/WW MNGMT/HAND PLACEMENT Transfers tub/shower Wet transfer Transfers tub/shower FIMS 5 - Requires set up of equipment or of w/c for transfer Transfer tub/shower comment Goal 6, Mod I VCS/CLOSE SUPERVISION FOR WALKER MGMT .GENERAL: DOMINANT HAND: RIGHT AROM/PROM: MILDRED WFL STRENGTH: 4/5 MILDRED UES EXAMINER RATING CLERK: RT-73# LT-60# PINCH: LAT: RT-18# LT-14# 3-JAW: RT-14# LT-13# TIP: RT-13# LT-14# STANDARDIZE TESTIN-HOLE TEST: RT-65 SEC LT-59 SEC SBT: MODERATE COG DEFICITS GDS: 06/13 NO DEPRESSION IADLS: CAR TRANSFERS: WW/CUES FOR TECH, SAFETY, HAND PLACEMENT, WALKER MNGMT KITCHEN/HOMEMAKING/LAUNDRY: PT. COMPLETED FUNC. KITCHEN ACTIVITY TO INCREASE DYN. STANDING BALANCE,WALKER SAFETY, AND STRENGTH/ENDURANCE WITH STANDING ACTIVITIES; PT. COMPLETED REACHING IN VARIOUS PLANES INCLUDING OPEN/CLOSE/REMOVE/PLACE ITEMS IN REFRIGERATOR AND CABINETS; SBS/MIN A FOR STEADYING AND SAFETY; CUES FOR WALKER MNGMT, TECH'S, AND SAFETY THROUGHOUT TASK. MEDICATION MGNT/HOME SAFETY: PT. COMPLETED SIMULATED FUNC. MED. MNGMT ACTIVITY X3 MEDICATIONS IN DAILY ORGANIZER; NOTED PT. ABLE TO OPEN ALL MEDICATION BOTTLES AND READ LABELS WITH GOOD SUCCESS; PT. CORRECTLY SORTED 1X A DAY MEDICATION INTO DAILY ORGANIZER; HOWEVER, NOTED INCREASED DIFFICULTY WITH X2 A DAY MEDICATIONS/REQUIRED MOD CUES TO PROPERLY DISTRIBUTE MEDICATIONS AND FOLLOW DOSAGE DIRECTIONS. RECOMMEND SUPERVISION/ASSISTANCE FOR MANAGING MEDICATIONS FOR SAFETY CONCERNS/MEDICATION COMPLIANCE 2/2 COG. DEIFICTS. F.O TRAINING/HANDS ON TRAINING: PT. AND FAMILY (BROTHER'S) EDUCATED ON SAFE TUB/COMBO XFER TECH ANDDME REC. (ETB/SHOWER CHAIR/GRAB BARS); FAIR UNDERSTANDING. SAFETY AWARENESS: PT. COMPLETED HOME SAFETY PROBLEM SOLVING CARDS X6 TO INCREASE SAFETY AWARENESS; DISCUSSING EACH PROBLEM PRESENTED, IDENTIFYING PROBLEM/POSSIBLE OUTCOME, AND SOLUTIONS; FAIR SUCCESSWITH TASK. GOALS: 2/6 STGS/LTGS RECOMMENDATION: HOME WITH HOME HEALTH/FAMILY SUPPORT/INCREASED SUPERVISION RECOMMENDED DME: ETB, GRAB BARS, HHSH, WW, LATHE SET UP OPERATOR ALEJANDRA HOOK * Renetta Johnson MD - 12/12/2018 10:14 AM CDT ADMISSION DIAGNOSES: Functional impairment secondary to Encephalopathy with functional impairment for rehabilitation. Discharge Diagnosis: Improvement in functional status after rehab stay with Encephalopathy ?? HISTORY OF PRESENT ILLNESS: 58-year-old -[place] male with a history of hypertension, hyperlipidemia, CVA in the past with left-sided weakness who presented to [facility] on 12/04. Patient also has a history of seizure disorder. The patient has some weakness of disorientation, which got worsened over a period of days. The patient had similar problems in the past, was seen for hyponatremia, was given IV fluids and discharged home. The patient lives by self and now is unable to low back secondary to this altered mental status. The patient was progressively gotten better while he was in the acute care. UA was negative, hyponatremia at the time of admission that has gotten im proved. As he still has some functional deficits with a known seizure disorder and CVA, we did start insurance authorization for inpatient rehabilitation. Prior to it patient has multiple hospital admissions. We did get approval, so patient was admitted to inpatient rehabilitation for further management of functional deficits. HOSPITAL COURSE: Mojgan Tabor is a 58-year-old male patient with Encephalopathy functional impairment admitted to rehab progressively got better functionally. Patient was able gait Gait Assistance: Gait Assistance: SBA/supervision, Modified independence Assistive Device Assistive Device: 2 Wheeled walker Ambulation Distance: Ambulation Distance (Feet): 250 feet Pattern: Functionally Sit to Stand: Modified independence Stair Management Assistance: SBA/supervision Rolling: Modified independence Shower Transfers : Supervision, Min assist(eob->wew->shwr chair/grab bars) ROS Constitutional: Negative for fever. Eyes: Negative for blurred vision. Respiratory: Negative for cough. Cardiovascular: Negative for chest pain. Gastrointestinal: Negative for nausea and vomiting. Musculoskeletal: Negative for joint pain and myalgias. Neurological: Negative for dizziness. Psychiatric/Behavioral: Positive for memory loss. Discharge Physical Exam Vitals: 12/12/18 0801 BP: 137/74 Pulse: 72 Resp: 16 Temp: 98.5 ??F (36.9 ??C) SpO2: 100% Physical Exam Neurologic Exam Constitutional: He is oriented to person, place, and time. No distress. HENT: Head: Atraumatic. Cardiovascular: Normal rate. Pulmonary/Chest: No respiratory distress. Abdominal: Soft. He exhibits no distension. There is no tenderness. Musculoskeletal: He exhibits edema. Neurological: He is alert and oriented to person, place, and time. Skin: Skin is dry. Encephalopathy ?? Mental status at base line ?? Had episode of AMS on 12/10. ?? He called family about seizure episode. Nursing staff did not witness ?? Per family he has multiple episodes in past where he was admitted for seizures at [facility] . ? DC home today with home therapy Prescriptions provided ? Patient Active Problem List Diagnosis ??? Seizure (CMS/HCC) ?? on Keppra 2000 mg 2 times a day and Trileptal 450 mg 2 times a day, on Klonopin p.r.n. 0.25 mg for seizures. ?? Stable now ?? Also Depakote . ?? gabapentin dced from 12/11 ?? sister will visit with him to neurology 12/26 at [facility] Want to follow with [facility] neurology for seizure management ??? Osteoporosis ??? UTI (urinary tract infection) ??? Encephalopathy acute ??? Cerebrovascular accident (CVA) ?chronic with left-sided weakness. ??Continue Aspirin 81 daily, Atorvastatin 20 at night daily, PT, OT for gait, balance, and ADL training ?? Strength in left upper much better . ??? Hyperlipidemia ??? Hypertension ?? on Amlodipine 5 mg daily. ?? BP stable ? Seizure (CMS/HCC) ??? Encephalopathy ?Supplements and Thiamine,Folic Acid daily. Docusate, and MiraLax for constipation, ? After obtaining rehabilitation goals, the patient was discharged home ?? with home therapy ??To follow in my clinic for post rehab follow up in 4 weeks DISCHARGE CONDITION: Stable. ?? DISCHARGE DISPOSITION: Home. Discharge medications: Medication List START taking these medications acetaminophen 325 MG tablet Commonly known as: TYLENOL Take 2 tablets (650 mg total) by mouth every 4 (four) hours as needed. CHANGE how you take these medications amlodipine 5 MG tablet Commonly known as: NORVASC Take 1 tablet (5 mg total) by mouth daily. Start taking on: 12/13/2018 What changed: See the new instructions. OXcarbazepine 150 MG tablet Commonly known as: TRILEPTAL Take 3 tablets (450 mg total) by mouth 2 (two) times daily. What changed: medication strength CONTINUE taking these medications aspirin 81 MG chewable tablet Chew 1 tablet (81 mg total) by mouth daily. Start taking on: 12/13/2018 atorvastatin 20 MG tablet Commonly known as: LIPITOR Take 1 tablet (20 mg total) by mouth daily. Start taking on: 12/13/2018 clonazePAM 0.5 MG tablet Commonly known as: KLONOPIN divalproex EC 500 MG tablet Commonly known as: DEPAKOTE Take 1 tablet (500 mg total) by mouth 2 (two) times daily. folic acid 1 MG tablet Commonly known as: FOLVITE Take 1 tablet (1 mg total) by mouth daily. Start taking on: 12/13/2018 levETIRAcetam 1000 MG tablet Commonly known as: KEPPRA Take 2 tablets (2,000 mg total) by mouth 2 (two) times daily. tamsulosin 0.4 MG Caps Commonly known as: FLOMAX Take 1 capsule (0.4 mg total) by mouth daily. Start taking on: 12/13/2018 thiamine 100 MG Tabs Take 1 tablet (100 mg total) by mouth daily. Start taking on: 12/13/2018 STOP taking these medications gabapentin 300 MG capsule Commonly known as: NEURONTIN Where to Get Your Medications These medications were sent to [facility] [address] [place] [address] & [address] [id number] ?? acetaminophen 325 MG tablet ?? amlodipine 5 MG tablet ?? aspirin 81 MG chewable tablet ?? atorvastatin 20 MG tablet ?? divalproex EC 500 MG tablet ?? folic acid 1 MG tablet ?? levETIRAcetam 1000 MG tablet ?? OXcarbazepine 150 MG tablet ?? tamsulosin 0.4 MG Caps ?? thiamine 100 MG Tabs Discharge * Marie Bae SEWING MACHINE OPERATOR - 12/12/2018 9:52 AM CDT 12/12/18 0900 Therapy Visit Ordering Provider MD Johnson Subjective Pt stated he is very happy going home today Reason for admission Encephalopathy Relevant Comorbidities/ Personal Factors to PT CVA WITH L SIDE WEAKNESS, SEIZURES, FALLS, HTN Verified Two Patient Identifiers Yes Patient consents to therapy Yes Time Calculation Start Time 0900 Stop Time 1000 Time Calculation (min) 60 min Is this a Rehab Patient Yes Individual Start Time 0900 Individual Stop Time 1000 Individual Time Calculation (min) 60 min Total Therapy Minutes Provided 60 Precautions General Precautions Bed Alarm;Chair Alarm;Fall Risk Instructed on Precautions Yes;Needs reinforcement and education Pain Pain No Activity Tolerance Endurance Tolerates 60 min activity with rests Cognition Overall Cognitive Status Impaired Bed Mobility Rolling Modified independence Supine to Sit Modified independence Sit to Supine Modified independence Other (Comment) with no bed rails TRANSFERS Stand Pivot Transfers SBA/supervision;Modified independence Sit to Stand Modified independence Other (Comment) Transfer with W.W Gait Gait Assistance SBA/supervision;Modified independence Assistive Device 2 Wheeled walker Ambulation Distance (Feet) 250 feet Other (Comment) Pt continues demonstrating leaning forward posture with SBS to mod I with good turning with safety awareness with W..W Stairs Stair Management Assistance SBA/supervision Stair Management Technique Two rails;Step to pattern Number of Stairs 12 Other (Comment) Ramp; 18% grade.4 feet in length and curb ; 2 4 inch steps with W. W with SBS with W.W Balance Other (Comment) Pt instructed in floor transfer with SBS with verbal instruction for correct technique and sequences and picking up object with grabber with SBS Exercises Other (Comment) Sci fit bike with level 3 for 5 minutes to improve B LE's and hip strength and endurance Patient/Family Training Other (Comment) Pt has met 2/5 STG and pt's brother present on 12/05/18 Recommendation PT Recommendation Home PT Plan If this is the last treatment note,it will serve as the discharge summary Yes End of Session Safety End of Session Safety Call light within reach;Chair alarm set/activated See above for discharge summary; Pt is discharged to home with home health PT to improve dynamic balance, gait and transfers and decrease fall risk. Pt has met 2/5 STG and pt's brother present on 12/05/18. Cosigned by Dionne Israel PT at 12/12/2018 12:53 PM CDT documented in this encounter Discharge Instructions * Discharge Instructions* Tena Gagnon RN - 12/12/2018 10:44 AM CDT HOME HEALTH CARE FOR PHYSICAL,OCCUPATIONAL AND SPEECH THERAPY. FROM [facility] AT [phone]. THE OFFICE WILL CONTACT PATIENT AT HOME AFTER DISCHARGE TO SCHEDULE VISITS. NO DRIVING UNTIL RELEASED BY YOUR PRIMARY CARE DOCTOR TAKE ALL YOUR PRESCRIPTIONS DIRECTED BY YOUR DOCTOR KEEP ALL FOLLOW UP APPOINTMENTS. RESCHEDULE RINKU IF NEEDED. UP WITH WALKER * Attachments The following attachments cannot be sent through Care Everywhere. * Seizures Discharge Instructions, Adult (Cypriot) * Levetiracetam, ADULT (Cypriot) * Oxcarbazepine, ADULT (Cypriot) * Clonazepam, ADULT (Cypriot) * Valproic Acid and Derivatives, ADULT (Cypriot) documented in this encounter Medications at Time of Discharge vitamin B-1 100 MG TabIndications:S eizure ([facility]) Take 1 tablet (100 mg total) by mouth daily. 30 tablet 12/13/2018 acetaminophen 325 MG tabletIndication s:Seizure ([facility]) Take 2 tablets (650 mg total) by mouth every 4 (four) hours as needed. 30 tablet 12/12/2018 12/22/2018 acetaminophen 325 MG tablet 12/12/2018 01/10/2019 amlodipine 5 MG tabletIndication s:Seizure ([facility]) Take 1 tablet (5 mg total) by mouth daily. 30 tablet 12/13/2018 12/19/2018 aspirin 81 MG chewable tabletIndication s:Seizure ([facility]) Chew 1 tablet (81 mg total) by mouth daily. 30 tablet 12/13/2018 01/05/2019 atorvastatin 20 MG tabletIndication s:Seizure ([facility]) Take 1 tablet (20 mg total) by mouth daily. 30 tablet 12/13/2018 01/05/2019 clonazePAM 0.5 MG tablet TK 1 T PO Q 8 H PRN. PLEASE CALL OFFICE IF SEIZURES OCCUR AFTER TAKING. 5 08/09/2018 03/03/2021 divalproex EC 500 MG tabletIndication s:Seizure ([facility]) Take 1 tablet (500 mg total) by mouth 2 (two) times daily. 60 tablet 12/12/2018 01/02/2019 folic acid 1 MG tabletIndication s:Seizure ([facility]) Take 1 tablet (1 mg total) by mouth daily. 30 tablet 12/13/2018 01/05/2019 levETIRAcetam 1000 MG tabletIndication s:Seizure ([facility]) Take 2 tablets (2,000 mg total) by mouth 2 (two) times daily. 60 tablet 12/12/2018 08/03/2021 OXcarbazepine 150 MG tabletIndication s:Seizure ([facility]) Take 3 tablets (450 mg total) by mouth 2 (two) times daily. 60 tablet 12/12/2018 01/22/2020 tamsulosin 0.4 MG CapIndications:S eizure ([facility]) Take 1 capsule (0.4 mg total) by mouth daily. 30 capsule 12/13/2018 01/05/2019 documented as of this encounter Progress Notes * Juan Diego Giles LCSW - 12/12/2018 1:10 PM CDT 12/12/18 d/c summary faxed to [facility] office today. No further services requested. * Shannon Benton - 12/12/2018 1:10 PM CDT 12/12/18 1300 Rehab FIMS Rehab FIMS RECEIVING WEIGHER FIMS Rehab episode of care Discharge Summary Functional Lamar Measure Score Comprehension Auditory Comprehension FIMS 6 - Understands complex/abstract with mild difficulty or increased time Expression Vocal Expression FIMS 6 - Expresses complex/abstract ideas with mild difficulty Social interaction FIMS 6 - Requires medication (antidepressant, anti-anxiety) Problem solving FIMS 3 - Solves routine problems 50-74% of the time Memory FIMS 3 - Recognizes, executes requests, remembers 50-74% * ALEJANDRA Hook - 12/12/2018 11:58 AM CDT 12/12/18 1100 Therapy Visit Reason for admission Encephalopathy Comorbidities Relevant to OT Seizures, HZTN, HLD, CVA with L side deficits, Falls Previous Occupational Therapy Inpatient Therapy Ordering Provider MD Johnson Verified Two Patient Identifiers Yes Patient consents to therapy Yes Time Calculation Is this a Rehab Patient Yes Individual Start Time 1100 Individual Stop Time 1130 Individual Time Calculation (min) 30 min Total Therapy Minutes Provided 30 Precautions General Precautions Bed Alarm;Chair Alarm;Fall Risk Instructed on Precautions Yes;Needs reinforcement and education Other HX of seizures Subjective Subjective PT STATES HE IS GOING HOME TODAY. HE SAYS HE THINKS HIS BROTHER IS GIVING HIM A RIDE BUTHIS BROTHER REQUESTS SOMEONE FROM THE HOSPITAL CALL HIM TO VERIFY (THERAPIST INFORMED SOCIAL WORK OF REQUEST). Pain Pain No Activity Tolerance Endurance Tolerates 60 min activity with rests Cognition Overall Cognitive Status Impaired Interventions R Shoulder AROM Flexion;Extension;ABduction;ADduction;Horizontal ABduction;Horizontal ADduction;ER;IR;Protraction;Retraction;Sitting (CHAIR THEREX X 10 REPS) L Shoulder AROM Flexion;Extension;ABduction;ADduction;Horizontal ABduction;Horizontal ADduction;ER;IR;Protraction;Retraction;Sitting (CHAIR THEREX X 10 REPS) R Elbow Strengthening Free Weights;Flexion;Extension;Sitting (X 1# X 10 REPS) L Elbow Strengthening Free Weights;Flexion;Extension;Sitting (X 1# X 10 REPS) Other (Comment) PT COMPLETED CHAIR THEREX TRUNK EXTENSION, ANTERIOR/POSTERIOR CERVICAL FLEX/EXT, SEATED MARCHING, SEATED JUMPING VIVEK, SHDR PRO/RETRACTION, SHDR PRESS, SHDR ROTATION, WRIST FLEX/EXT AND BICEP CURLS X 10 REPS X 1 SET IN ORDER TO INCREASE STRENGTH, POSTURE, COORDINATION AND BLAANCE FOR FUNCT TASKS. PT ABLE TO RETURN DEMO WITH MIN CUES THROUGHOUT. HANDOUT ISSUED. Modalities Patient/Family Training PT/THERAPIST DISCUSSED REC AE/DME FOR D/C. REC PT UTILIZE WW OVER CURRENT ROLLATOR, EQUIPMENT PROVIDER AWARE OF SCRIPT AND IS IN PROCESS OF SUBMITTING TO PT INS. PT STATES HASELEVATED TOILET SEAT AT HOME AND SHOWER CHAIR. PT PROVIDED WITH D/C HANDOUT LISTING ALL ISSUED AND REC EQUIPMENT FOR LATER REFERENCE IF NEEDED. PT V/U. Other (Comment) OT/PT IN AGREEMENT WITH DME/LRD UTILIZED Patient/Family Training Precautions X Exercise Program SEATED THEREX Other (Comment) ONE/ONE; PT DEMO FAIR UNDERSTANDING OT EDU/RECS Recommendation OT Recommendation Inpatient Rehab OT Equipment Recommended 2 Wheeled walker;Grab bars in shower;Tub/shower chair with back;Hand-held shower;Strategic Planner Plan OT Treatment/Intervention Self-care training;Therapeutic exercises;Therapeutic activities;Neuromuscular re-education;Patient/family training;Continued evaluation;Functional activity;Safety Progress Progressing toward goals OT Frequency BID OT plan for next session D/C PLANNING If this is the last treatment note, it will serve as the discharge summary Yes End of Session Safety End of Session Safety Chair alarm set/activated;Call light within reach;Nursing aware of session End of Session Comment PT SEATED IN RECLINER AT BEDSIDE WTIH ALL NEEDS IN REACH. BRIANA RAY OTR D/C FIM COMPLETED. PLEASE REFER TO FIM/QID DOCS * Shannon Benton - 12/12/2018 10:24 AM CDT 12/12/18 1007 Therapy Visit Subjective pt. was sitting up in chair at b/s. Alert and Cooperative. Patient consents to Therapy Yes Time Calculation Start Time 1000 Stop Time 1030 Time Calculation (min) 30 min Pain Pain No Swallowing Swallowing impressions/assessment pt. observed taking medication c nursing. Pt. removed upper partial to take medications. no difficulty c swallow observed. Pt. noted he always takes out his partial when he eats/swallows meds because he is afraid he will swallow his partial on accident. Reading Comprehension Functional information 75% prescription label. delayed processing to read/locate information. MIld to moderate cues given. Pt. had diminished visual acuity to read/write responses. Pt. noted he may need his vision checked again. Pt. also has poor awareness of deficits/difficulty c tasks. Limited basic reading comprehension noted today. Reading comprehension impressions/assessment mild to moderate comprehension deficits noted today. Plan RECEIVING WEIGHER Plan for Next Session continue c ST POC/cognitive goals to improve functional problem solving/comprehension. * Marie Bae PTA - 12/12/2018 9:52 AM CDT 12/12/18 0900 Rehab FIMS Rehab FIMS PT FIMS Rehab episode of care Discharge Summary Functional Lamar Measure Score Transfers - bed/chair/wheelchair FIMS 5 - Supervision or cueing Transfers bed/chair/wheelchair comment with W.W Primary mode of locomotion Walk Walking FIMS 5 - Walks 150ft with supervison, cues, set-up Walking comment with W.W Wheelchair FIMS 1 - Propels <50ft or performs 25% of effort or requires 2 assist Wheelchair comment NA due to primary means of locomotion is walking Stairs FIMS 4 - Does 12-14 stairs with steadying / contact guard Stairs comment with Maggy rails Cosigned by Dionne Israel, PT at 12/12/2018 12:53 PM CDT * KingaGREY Robertson - 12/11/2018 4:59 PM CDT 12/11/18 1300 Therapy Visit Reason for admission Encephalopathy Comorbidities Relevant to OT Seizures, HZTN, HLD, CVA with L side deficits, Falls Ordering Provider MD Johnson Verified Two Patient Identifiers Yes Patient consents to therapy Yes Time Calculation Start Time 1300 Stop Time 1330 Time Calculation (min) 30 min Is this a Rehab Patient Yes Precautions General Precautions Bed Alarm;Chair Alarm;Fall Risk Instructed on Precautions Yes;Needs reinforcement and education Other HX of seizures Subjective Subjective PT. APPEARED UPSET UPON THER. ARRIVAL; STATING HE IS CONCERNED HE IS NOT GOING TO BE ABLE TO GO HOME FOLLOWING A CONVERSATION WITH HIS SISTER THIS MORNING. Pain Pain No Activity Tolerance Endurance Tolerates 30 min activity with rests Cognition Overall Cognitive Status Impaired Other (Comment) PT COMPLETED HOME SAFETY CARDS TO INCREASE SAFETY AWARNESS FOR IMPROVED ADL/IADL/COMMUNITY AND HOUSEHOLD SAFETY; PT. CORRECTLY IDENTIFIED SAFE VS UNSAFE SITUATIONS WITH FAIR/GOOD SUCCESS; PT. VERBALIZED WHY EACH SITUATION WAS SAFE OR UNSAFE WITH MIN V/C'S TO PROBLEM SOLVE. Functional Transfers Sit to Stand SBA/supervision (WW) Functional Mobility PT. COMPLETED FUNC. MOBIL. >75 FT. X2 ROOM <-> GYM USING WW WITH SBS FOR SAFETY/BALANCE; CUES FOR POSTURE 2/2 FORWARD FLEXION NOTED. PT. ABLE TO CORRECT; HOWEVER, GRADUALLY RETURNED TO FLEXED POSTURE DURING MOBIL. Other (Comment) CUES FOR WALKER MNGMT/SAFETY Interventions Other (Comment) PT. COMPLETED MILDRED UE FREE WEIGHT THER. EX SITTING ARM CHAIR X15 REPS EACH PLANE TO INCREASE UE STRENGTH,GMC, AND ENDURANCE FOR IMPROVED ADL/XFER INDEP. AND SAFETY (OVERHEAD PRESS, FORWARD PUNCHES, ELBOW FLEX/EXT, TRICEP CURL, FOREARM PRO/SUP, SHOULDER ABD/ADD, WRIST FLEX/EXT); MIN/MOD CUES FOR PROPER POSITIONING/BODY MECH. WITH THER. EX. Modalities Other (Comment) OT/PT IN AGREEMENT WITH DME/LRD UTILIZED Patient/Family Training Self Cares X Transfer Training X Precautions X SAFETY AWARENESS Exercise Program X Other (Comment) ONE TO ONE/VERBAL/VISUAL; RECEPTIVE TO TASKS COMPLETED AND EDU. PROVIDED. Recommendation OT Recommendation Inpatient Rehab Plan OT Treatment/Intervention Self-care training;Therapeutic exercises;Therapeutic activities;Neuromuscular re-education;Patient/family training;Continued evaluation;Functional activity;Safety Progress Progressing toward goals OT Frequency BID OT plan for next session ADL'S/XFER'S/CONTINUE SAFETY AWARENESS End of Session Safety End of Session Safety Chair alarm set/activated;Call light within reach End of Session Comment PT. SITTING RECLINER CHAIR AT END OF THER. SESSION. * Svetlana Charles, PT - 12/11/2018 4:44 PM CDT 12/11/18 1400 Therapy Visit Ordering Provider MD Johnson Subjective Pt seated in recliner when PT arrives; reports he had a good lunch and agrees to PT. Reason for admission Encephalopathy Relevant Comorbidities/ Personal Factors to PT CVA WITH L SIDE WEAKNESS, SEIZURES, FALLS, HTN Verified Two Patient Identifiers Yes Patient consents to therapy Yes Time Calculation Is this a Rehab Patient Yes Individual Start Time 1400 Individual Stop Time 1430 Individual Time Calculation (min) 30 min Total Therapy Minutes Provided 30 Precautions General Precautions Bed Alarm;Chair Alarm;Fall Risk Instructed on Precautions Yes;Needs reinforcement and education Pain Pain No Activity Tolerance Endurance Tolerates 30 min activity with rests Activity Tolerance Comments Good-fair tolerance; requires increased rest breaks this PM. Cognition Overall Cognitive Status Impaired TRANSFERS Sit to Stand SBA/supervision (WW) Other (Comment) Pt still requires cues for upright posture once standing. Does demo carryover for correct UE placement when standing. Gait Gait Assistance SBA/supervision Assistive Device 2 Wheeled walker Ambulation Distance (Feet) 150ft x2 Other (Comment) When asked, pt is able to verbalize that he needs to work on standing up straight when ambulating. Therapist also reminds him about picking up his L LE during ambulation as well. He verbally agrees but still requires cues for correct technique during ambulation. Stairs Stair Management Assistance SBA/supervision Stair Management Technique Two rails;Step to pattern Number of Stairs 12 Other (Comment) During this session, pt completes 12 steps using B rails. He requires cues for wider RISA when completing. Pt initially is unable to recall his home setup and reports no stairs. After further questioning he then reports 2 stairs but no rail to hold onto. Therapist discusses the benefit of adding rails if possible to assist with balance and safety; pt verbally agrees to this. More followup may be necessary. Interventions Other (Comment) To improved LE proprioception and overall balance pt performs tapping to a cone turned on its side. Pt was cued to tap gently then remove his foot from the cone and place it on the ground. Pt demos difficulty following directions and requires increased cues and demonstration from therapist. He demos overall increased L lean at times when performing this task, especially when tapping with R LE. Therapist provides min A for steadying for balance during this task. He completes 20x2B. Patient/Family Training Other (Comment) Pt educated on safety when completing stairs; he verbalizes agreement but demos decreased insight into safety with his current home setup. Recommendation PT Recommendation Inpatient Rehab PT Equipment Recommended 2 Wheeled walker Plan PT Treatments/Interventions Gait Training;Therapeutic Exercises;Therapeutic Activities;Neuromuscular re-education;Patient/family training Progress Progressing toward goals PT Frequency Daily;BID;5 times/week PT plan for next session balance training; gait training; safety awareness End of Session Safety End of Session Comment Pt handed off to ST at end of session. * Yana Syed, OT - 12/11/2018 3:25 PM CDT 12/11/18 1000 Therapy Visit Reason for admission Encephalopathy Comorbidities Relevant to OT Seizures, HZTN, HLD, CVA with L side deficits, Falls Ordering Provider MD Johnson Verified Two Patient Identifiers Yes Patient consents to therapy Yes Time Calculation Is this a Rehab Patient Yes Individual Start Time 1000 Individual Stop Time 1100 Individual Time Calculation (min) 60 min Total Therapy Minutes Provided 60 Precautions General Precautions Bed Alarm;Chair Alarm;Fall Risk Instructed on Precautions Yes;Needs reinforcement and education Subjective Subjective Pt in recliner upon arrival; pt attempting to order lunch but couldn't figure out how. Pt educated on use of phone to order meals and he correctly performed the task. Pt agreeable to therapy. Pain Pain No Activity Tolerance Endurance Tolerates 60 min activity with rests Activity Tolerance Comments Good tolerance; requires occasional rest breaks. Cognition Overall Cognitive Status Impaired Arousal/Alertness Delayed responses to stimuli Attention Span Attends with cues to redirect Memory Decreased short term memory;Decreased recall of biographical information Orientation Level Oriented X4 Following Commands Follows one step commands with repetition Safety Judgment Decreased awareness of need for safety Awareness of Errors Assistance required to identify errors made Deficits Decreased awareness of deficits Problem Solving Assistance required to generate solutions Comments Pt needed assistance to problem solve ordering lunch. Motor Planning Appears intact Perseveration Perseverates during ADLs Initiation Cues to initiate tasks Other (Comment) Pt perseverated during shaving ADL Grooming Assistance Stand by (seated in chair at the sink) Grooming Deficit Verbal cueing;Supervision/safety;Increased time to complete;Shaving Grooming Comment Pt only wanted to shave and brush teeth; pt given wash cloth, towel, and razor. Ptperseverated wetting, shaving, and drying his face. Additional Comments Pt offered a live shower but refused. IADL Kitchen Mobility Verbal cues;Compensatory technique;Standing by assist IADL Comments Pt required cues to stay with his walker. Pt instructed to simulate his home dinner routine. Pt went to the refrigerator and took out a container. After looking around, therapist questioned his next move. Pt replied he would usually put the container on the seat of his rollator. Therapist took container to counter near microwave. Pt ambulated with ww to counter and was distracted bythe lock board. Pt was asked the location of the microwave and told to pretend to heat up his pt. Pt then reported he typically takes his meal to his front room on his rollator seat in order to eat. PT reported washing dished in sink and demonstrated this activity for therapist. Pt then walked backto his room with SBA and w/w with cues to stand straight and keep his body closer to the walker. Functional Transfers Sit to Stand Mod assist (Atypical; needed large boost; potentially fatigue related) Functional Mobility Pt walked >150 with ww, SBS, and cues to stay with his walker, stand straight, and keep his feet apart for safe mobility. Balance Sitting - Static SBA Sitting - Dynamic SBA Standing - Static SBA Standing - Dynamic SBA Other (Comment) Pt able to reach a container on the lower shelf of the fridge safely with SBA by squatting. Coordination Coordination intact Other (Comment) Pt able to open grooming containers and small container in the kitchen. Patient/Family Training Self Cares x Transfer Training x Precautions x Other (Comment) Pt educated on bathroom safety, transfering wtih ww safely, and need for taking it slow for safety. OT Assessment OT Assessment Pt shows decreased awareness for safety and need for his walker to be in front of himat all times. Recommendation OT Recommendation Inpatient Rehab OT Equipment Recommended To Be Determined Plan OT Treatment/Intervention Self-care training;Therapeutic exercises;Therapeutic activities;Neuromuscular re-education;Patient/family training;Continued evaluation;Functional activity;Safety Progress Progressing toward goals OT Frequency BID End of Session Safety End of Session Safety Chair alarm set/activated;Call light within reach;Family/friend present with patient PT. SISTER IN ROOM DURING SESSION, PT. SISTER STATES THAT MOJGAN CALLED HER BROTHER LAST NIGHT AND STATED THAT HE THOUGHT HE WAS HAVING ANOTHER SEIZURE, SISTER STATES THAT PT. FELT HE NEEDED TO CALL [facility], SISTER STATES THEY TOLD HIM THAT HE WAS IN THE HOSPITAL AND THAT HE JUST NEEDED TO PRESS HIS CALLLIGHT. THERAPIST FOUND NURSING TO ASK ABOUT THE SITUATION, NURSING STATED THAT THEY CAME INTO THE ROOM TO CHECK ON PT. AND PT. WAS DOING OKAY. SISTER STATED THAT SHE HAS FEARS OF PT. GOING HOME BECAUSE HE LIVES IN [facility] AND HE JUST LETS [employer] PEOPLE INTO HIS HOME WHEN THEY KNOCK ON THE DOOR BECAUSE HE IS SO FRIENDLY. PT. SISTER STATES THAT SHE WOULD LIKE TO TALK TO AUDIO VISUAL ARTS DIRECTOR ABOUT PLACEMENT ELSEWHERE FOR THE PT., AND THAT SHE WOULD ALSO LIKE TO TALK TO THE DR. REGARDING HIS MEDICATIONS. THERAPIST INFORMED AUDIO VISUAL ARTS DIRECTOR AND ABOUT THE SITUATION AND THEY BOTH WENT INTO THE ROOM TO TALK TO THE SISTER AND PT. * Renetta Johnson MD - 12/11/2018 1:26 PM CDT Mojgan Tabor is a 58-year-old male patient. Comfortably sitting in chair , mild distress, sister bed side, pain well controlled, no c/o nasal congestion, abdominal pain Had episode of confusin Note: Patient Active Problem List Diagnosis ??? Seizure (CMS/HCC) ??? Osteoporosis ??? UTI (urinary tract infection) ??? Encephalopathy acute ??? Cerebrovascular accident (CVA) due to thrombosis of right posterior cerebral artery (CMS/HCC) ??? Hyperlipidemia ??? Hypertension ??? Seizure (CMS/HCC) ??? Encephalopathy Past Medical History: Diagnosis Date ??? HLD (hyperlipidemia) ??? Hypertension ??? Seizures (CMS/HCC) ??? Seizures (CMS/HCC) ??? Stroke (CMS/HCC) lt side weakness Current Facility-Administered Medications: ??? acetaminophen (TYLENOL) tablet 650 mg, 650 mg, Oral, Q4H PRN, 650 mg at 12/11/18 0630 OR acetaminophen (TYLENOL) suppository 650 mg, 650 mg, Rectal, Q4H PRN OR acetaminophen (TYLENOL) 160MG/5ML solution 650 mg, 650 mg, Oral, Q4H PRN, Renetta oJhnson MD ??? amlodipine (NORVASC) tablet 5 mg, 5 mg, Oral, Daily, Renetta Johnson MD, 5 mg at 12/11/18 0834 ??? aspirin chewable tablet 81 mg, 81 mg, Oral, Daily, Renetta Johnson MD, 81 mg at 12/11/18 0834 ??? atorvastatin (LIPITOR) tablet 20 mg, 20 mg, Oral, Daily, Renetta Johnson MD, 20 mg at 12/11/18 0834 ??? bisacodyl (DULCOLAX) suppository 10 mg, 10 mg, Rectal, Daily PRN, Renetta Johnson MD ??? bisacodyl EC (DULCOLAX) tablet 10 mg, 10 mg, Oral, Daily PRN, Renetta Johnson MD, 10 mg at 12/07/18 0554 ??? clonazePAM (KLONOPIN) tablet 0.25 mg, 0.25 mg, Oral, BID PRN, Renetta Johnson MD ??? divalproex EC (DEPAKOTE) delayed release tablet 500 mg, 500 mg, Oral, BID, Renetta Johnson MD, 500 mg at 12/11/18833 ??? docusate sodium (COLACE) capsule 100 mg, 100 mg, Oral, BID, Renetta Johnson MD, 100 mg at 12/11/18832 ??? folic acid (FOLVITE) tablet 1 mg, 1 mg, Oral, Daily, Renetta Johnson MD, 1 mg at 12/11/18833 ??? heparin (porcine) injection 5,000 Units, 5,000 Units, Subcutaneous, 2 times per day, 5,000 Units at 12/11/18832 AND [COMPLETED] Moderate Risk for VTE, , , Once, Renetta Johnson MD ??? levETIRAcetam (KEPPRA) tablet 2,000 mg, 2,000 mg, Oral, BID, Renetta Johnson MD, 2,000 mg at 12/11/18833 ??? OXcarbazepine (TRILEPTAL) tablet 450 mg, 450 mg, Oral, BID, Renetta Johnson MD, 450 mg at 12/11/18833 ??? polyethylene glycol (GLYCOLAX) packet 1 packet, 1 packet, Oral, Daily, Renetta Johnson MD, 1 packet at 12/11/18830 ??? tamsulosin (FLOMAX) capsule 0.4 mg, 0.4 mg, Oral, Daily, Renetta Johnson MD, 0.4 mg at ??? vitamin B-1 (THIAMINE) tablet 100 mg, 100 mg, Oral, Daily, Renetta Johnson MD, 100 mg at 12/11/18833 Review of Systems Constitutional: Negative for fever. Eyes: Negative for blurred vision. Respiratory: Negative for cough. Cardiovascular: Negative for chest pain. Gastrointestinal: Negative for nausea and vomiting. Musculoskeletal: Negative for joint pain and myalgias. Neurological: Negative for dizziness. Psychiatric/Behavioral: Positive for memory loss. Negative for depression. The patient is nervous/anxious. Physical Exam Vitals: 12/11/18829 BP: 135/81 Pulse: 72 Resp: 18 Temp: 98.1 ??F (36.7 ??C) SpO2: 99% Physical Exam Constitutional: He is oriented to person, place, and time. No distress. HENT: Head: Atraumatic. Cardiovascular: Normal rate. Pulmonary/Chest: No respiratory distress. Abdominal: Soft. He exhibits no distension. There is no tenderness. Musculoskeletal: He exhibits edema. Neurological: He is alert and oriented to person, place, and time. He exhibits abnormal muscle tone. Coordination abnormal. Skin: Skin is dry. Psychiatric: His mood appears anxious. Nursing note and vitals reviewed. Neurologic Exam Mental Status Oriented to person, place, and time. Functional Status Sit to Stand: (P) Mod assist(Not typical for pt but needed a large boost) Stair Management Assistance: SBA/supervision Rolling: Modified independence Shower Transfers : Supervision, Min assist(eob->wew->shwr chair/grab bars) Gait: Gait Assistance: Gait Assistance: SBA/supervision Assistive Device Assistive Device: 2 Wheeled walker Ambulation Distance: Ambulation Distance (Feet): 300ft, 150ft Pattern: WBC (x10'3/uL) Date Value 12/05/2018 5.0 HGB (G/DL) Date Value 12/05/2018 13.9 PLT (x10'3/uL) Date Value 12/05/2018 241 INR (no units) Date Value 06/06/2017 1.2 Assessment & Plan: Mojgan Tabor is a 58-year-old male patient with Encephalopathy functional impairment for rehab Encephalopathy Mental status at base line Mild balance deficits. Had episode of AMS yesterday He called family about seizure episode. Nursing staff did not witness Per family he has multiple episodes in past where he was admitted for seizures at [facility] . Most of those admissions from confusion than real seizures. Need to cut down seizure meds' PT, OT for gait training and ADL training, Nursing for bowel and bladder care. Speech therapy for swallow evaluation and cognitive evaluation. Patient Active Problem List Diagnosis ??? Seizure (CMS/HCC) on Keppra 2000 mg 2 times a day and Trileptal 450 mg 2 times a day, on Klonopin p.r.n. 0.25 mg for seizures. Stable now Also Depakote . gabapentin dced from 12/11 sister will visit with him to neurology 12/26 at [facility] ??? Osteoporosis ??? UTI (urinary tract infection) ??? Encephalopathy acute ??? Cerebrovascular accident (CVA) chronic with left-sided weakness. Continue Aspirin 81 daily, Atorvastatin 20 at night daily, PT, OTfor gait, balance, and ADL training Strength in left upper much better . ??? Hyperlipidemia ??? Hypertension on Amlodipine 5 mg daily. BP in 130's ??? Seizure (CMS/HCC) ??? Encephalopathy Neuropathic pain, Gabapentin 300 mg 3 times a day. We will try to wean him off from the Gabapentin. Supplements and Thiamine,Folic Acid daily. Docusate, and MiraLax for constipation, Cognitive deficits : Speech worning, need to cut down sz meds as his cognition is poor RENETTA JOHNSON MD * Svetlana Matthews Araceli, PT - 12/11/2018 12:59 PM CDT 12/11/18 0900 Therapy Visit Ordering Provider MD Johnson Subjective Pt in bed when PT arrives; pt reports he had a seizure last night but I was in the hospital so I didn't have to call an ambulance. Reason for admission Encephalopathy Relevant Comorbidities/ Personal Factors to PT CVA WITH L SIDE WEAKNESS, SEIZURES, FALLS, HTN Verified Two Patient Identifiers Yes Patient consents to therapy Yes Time Calculation Is this a Rehab Patient Yes Individual Start Time 0900 Individual Stop Time 1000 Individual Time Calculation (min) 60 min Total Therapy Minutes Provided 60 Precautions General Precautions Bed Alarm;Chair Alarm;Fall Risk Instructed on Precautions Yes;Needs reinforcement and education Other HX of seizures Pain Pain No Activity Tolerance Endurance Tolerates 60 min activity with rests Activity Tolerance Comments Good tolerance; requires occasional rest breaks. Cognition Overall Cognitive Status Impaired Bed Mobility Rolling Modified independence Supine to Sit Modified independence Sit to Supine Modified independence Other (Comment) without rails. TRANSFERS Stand Pivot Transfers SBA/supervision (WW) Sit to Stand SBA/supervision (to WW) Other (Comment) Pt requires cues for upright posture and for gaining balance before ambulating. Gait Gait Assistance SBA/supervision Assistive Device 2 Wheeled walker Ambulation Distance (Feet) 300ft, 150ft Other (Comment) Pt ambulates using WW with SBS. He requires cues for upright posture, widening his RISA, and for clearance of L LE. He is able to follow cues at times but with increased distance is unable to maintain and requires additional cues. Stairs Other (Comment) Pt completes ramp and curb step with SBS. He requires cues for correct placement ofwalker (proximity of walker to stairs, and proximity of self to waker) and requires cues for wider RISA when completing ramp. Interventions Other (Comment) To improve B LE clearance, balance, and manuvering the walker, pt performs steppingover rods and weaving around cones with WW. Pt steps over 4 rods x2 laps x2 trials. On initial rounds pt demos far proximity to tano prior to lifting walker over it; he requires cues for proximity to walker and to tano. He also demos decreased clearance L LE, catching his heel on the tano. With cues an d increased practice pt is able to improve his clearance and overall technique. On second trial pt demos improved carryover of technique. When weaving around cones, pt demos decreased attn to task and requires cues for proximity to walker and for attn to surroundings. He demos step to pattern when weaving around cones and demos inconsistent step length and placement of the walker. He requires cues for larger steps B LEs and for upright posture throughout. Patient/Family Training Bed Mobility X Transfer Training X Gait Training X Stair Climbing X Other (Comment) Pt educated about purpose of stepping over objects and walking around objects to prepare him for home. Pt verbally agrees but shows decreased insight. Recommendation PT Recommendation Inpatient Rehab PT Equipment Recommended 2 Wheeled walker Plan PT Treatments/Interventions Gait Training;Therapeutic Exercises;Therapeutic Activities;Neuromuscular re-education;Patient/family training Progress Progressing toward goals PT Frequency Daily;BID;5 times/week PT plan for next session balance training; safety awareness End of Session Safety End of Session Safety Chair alarm set/activated;Call light within reach * Neli Hamlin, OT Student - 12/11/2018 12:50 PM CDT 12/11/18 1000 Therapy Visit Reason for admission Encephalopathy Comorbidities Relevant to OT Seizures, HZTN, HLD, CVA with L side deficits, Falls Ordering Provider MD Johnson Verified Two Patient Identifiers Yes Patient consents to therapy Yes Time Calculation Is this a Rehab Patient Yes Individual Start Time 1000 Individual Stop Time 1100 Individual Time Calculation (min) 60 min Total Therapy Minutes Provided 60 Precautions General Precautions Bed Alarm;Chair Alarm;Fall Risk Instructed on Precautions Yes;Needs reinforcement and education Subjective Subjective Pt in recliner upon arrival; pt attempting to order lunch but couldn't figure out how. PT agreeable to therapy. Pain Pain No Activity Tolerance Endurance Tolerates 60 min activity with rests Activity Tolerance Comments Good tolerance; requires occasional rest breaks. Cognition Overall Cognitive Status Impaired Arousal/Alertness Delayed responses to stimuli Attention Span Attends with cues to redirect Memory Decreased short term memory;Decreased recall of biographical information Orientation Level Oriented X4 Following Commands Follows one step commands with repetition Safety Judgment Decreased awareness of need for safety Awareness of Errors Assistance required to identify errors made Deficits Decreased awareness of deficits Problem Solving Assistance required to generate solutions Comments Pt needed assistance to problem solve ordering lunch. Motor Planning Appears intact Perseveration Perseverates during ADLs Initiation Cues to initiate tasks Other (Comment) Pt perseverated during shaving ADL Grooming Assistance Stand by (seated in chair at the sink) Grooming Deficit Verbal cueing;Supervision/safety;Increased time to complete;Shaving Grooming Comment Pt only wanted to shave and brush teeth; pt given wash cloth, towel, and razor. Ptperseverated wetting, shaving, and drying his face. Additional Comments Pt offered a live shower but refused. IADL Kitchen Mobility Verbal cues;Compensatory technique;Standing by assist IADL Comments Pt required cues to stay with his walker. Pt instructed to simulate his home dinner routine. Pt went to the refrigerar and took out a container. After looking around, therapist questioned his next move. Pt replied he would usually put the container on the seat of his rollator. Therapist took container to counter near microwave. Pt ambulated with ww to counter and was distracted by the lock board. Pt was asked the location of the microwave and told to pretend to heat up his pt. Pt then reported he typically takes his meal to his front room on his rollator seat in order to eat. PTreported washing dished in sink and demonstrated this activity for therapist. Pt then walked back to his room with SBA and w/w with cues to stand straight and keep his body closer to the walker. Functional Transfers Sit to Stand Mod assist (Not typical for pt but needed a large boost) Functional Mobility Pt walked >150 with ww and cues to stay with his walker, stand straight, andkeep his feet apart for safe mobility. Balance Sitting - Static SBA Sitting - Dynamic SBA Standing - Static SBA Standing - Dynamic SBA Other (Comment) Pt able to reach a container on the lower shelf of the fridge safely with SBA by squatting. Coordination Coordination intact Other (Comment) Pt able to open grooming containers and small container in the kitchen. Patient/Family Training Self Cares x Transfer Training x Precautions x Other (Comment) Pt educated on bathroom safety, transfering wtih ww safely, and need for taking it slow for safety. OT Assessment OT Assessment Pt shows decreased awareness for safety and need for his walker to be in front of himat all times. Recommendation OT Recommendation Inpatient Rehab OT Equipment Recommended To Be Determined Plan OT Treatment/Intervention Self-care training;Therapeutic exercises;Therapeutic activities;Neuromuscular re-education;Patient/family training;Continued evaluation;Functional activity;Safety Progress Progressing toward goals OT Frequency BID End of Session Safety End of Session Safety Chair alarm set/activated;Call light within reach;Family/friend present with patient Cosigned by Yana Syed OT at 12/18/2018 7:33 AM CDT * Juan Diego Giles LCSW - 12/11/2018 11:47 AM CDT ASHWIN MET WITH THE PT AND HIS SISTER TODAY. DISCUSSED TOMORROW'S D/C PLANS. PT WILL BE PICKED UP LATERIN THE AFTERNOON AFTER ALL THERAPY IS COMPLETED. ASHWIN EXPLAINED,AGAIN,HOW [facility] WILL FOLLOW UP SHORTLY AFTER D/C. * GREY Mohr - 12/10/2018 11:01 AM CDT 12/10/18 0730 Therapy Visit Reason for admission Encephalopathy Comorbidities Relevant to OT Seizures, HZTN, HLD, CVA with L side deficits, Falls Ordering Provider MD Johnson Verified Two Patient Identifiers Yes Patient consents to therapy Yes Time Calculation Start Time 0730 Stop Time 0800 Time Calculation (min) 30 min Is this a Rehab Patient Yes Precautions General Precautions Bed Alarm;Chair Alarm;Fall Risk Instructed on Precautions Yes;Needs reinforcement and education Other HX of seizures Subjective Subjective PT. AGREEABLE TO THER. SESSION. PT. AGREEABLE TO UB SPONGEBATHING ONLY THIS MORNING; PT.STATED I ALREADY GOT WASHED UP; I JUST WANT TO WASH MY ARMS, UNDERARMS, CHEST, FACE, SHAVE, AND BRUSH MY TEETH . PT. WEARING SAME CLOTHING PRIOR DAY UPON THER. ARRIVAL; PT. DECLINED CHANGING CLOT KRISTINE/REQUESTED TO WEAR FOR 2ND DAY. Pain Pain No Activity Tolerance Endurance Tolerates 30 min activity with rests Cognition Overall Cognitive Status Impaired ADL Grooming Assistance Stand by;Modified independent (Device) Grooming Deficit Setup;Supervision/safety;Increased time to complete Grooming Comment WASH/DRY FACE AND HANDS, COMB HAIR, SHAVING, BRUSH TEETH SITTING W/C LEVEL AT SINK; SET UP; SAFETY Bathing Assistance Stand by Bathing Deficit Setup;Verbal cueing;Supervision/safety;Increased time to complete Bathing Comment UB SPONGEBATHING SITTING W/C LEVEL AT SINK; SET UP UE Dressing Assistance Sitting in chair;Modified independent (Device) UE Dressing Deficit Increased time to complete UE Dressing Comment PULLOVER SHIRT SITTING W/C LEVEL LE Dressing Assistance Stand by LE Dressing Deficit Supervision/safety;Increased time to complete;Setup LE Dressing Comment DONNING SHOES ONLY SITTING W/C LEVEL Toileting Assistance Stand by Toileting Deficit Supervision/safety;Increased time to complete;Verbal cueing Toileting Comment SAFETY/BALANCE WITH STANDING; WW Bed Mobility Supine to Sit Modified independence (BED RAIL USE) Functional Transfers Sit to Stand SBA/supervision (WW/CUES FOR HAND PLACEMENT/SAFETY) Bed to Chair SBA/supervision (WW/SAFETY AND BALANCE/CUES FOR SAFETY AND WALKER MNGMT) Toilet Transfers Supervision;Adaptive equipment (WW/3IN1 COMMODE; CUES FOR SAFETY/WW MNGMT/HAND PLACEMENT) Functional Mobility FUNC. MOBIL. USING WW WITHIN ROOM WITH SBS FOR SAFETY/BALANCE. NOTED FORWARD FLEXED POSTURE WITH XFERS/MOBIL. Modalities Other (Comment) OT/PT IN AGREEMENT WITH DME/LRD UTILIZED Patient/Family Training Self Cares X Transfer Training X Other (Comment) ONE TO ONE/VERBAL; RECEPTIVE TOT ASKS COMPLETED AND EDU. PROVIDED; QUESTIONABLE CARRYOVER 2/2 COG. DEFICITS Recommendation OT Recommendation Inpatient Rehab Plan OT Treatment/Intervention Self-care training;Therapeutic exercises;Therapeutic activities;Neuromuscular re-education;Patient/family training;Continued evaluation;Functional activity;Safety Progress Progressing toward goals OT Frequency BID OT plan for next session ADL'S/XFER'S End of Session Safety End of Session Safety Other (Comment) End of Session Comment PT. WITH PHYS. THER. AT END OF THER. SESSION * Shannon Benton - 12/10/2018 9:00 AM CDT 12/10/18 0857 Therapy Visit Subjective pt. sitting up in chair at b/s. Alert and cooperative. Pt. observed taking medicine c nursing. Pt. very tangential and unable to attend to task without MOD cues. Pt. perseverates on same topics, i.e. 2 years sober and life events preceding this. Patient consents to Therapy Yes Time Calculation Start Time 0830 Stop Time 0900 Time Calculation (min) 30 min Pain Pain No Cognition Verbal reasoning impressions/assessment 80% MIn cues. convergent inferences (ID words described) Cognitive overall status Moderate cognitive-communication impairment Cognition impressions/assessment Unsure of pt. cognitive baseline/problem solving given his hx of drug/alcohol abuse. Plan RECEIVING WEIGHER Plan for Next Session continue to target improved basic cognition/safety for improved indep. for d/c Pt. Very perseverative on x2 topics (past drug/alcohol use and time in [employer]). Pt. Needs MOD cueing to stay c structured tasks as he can quickly distract himself wanting to talk about these two topics. * Mya Jiménez PTA - 12/10/2018 8:30 AM CDT 12/10/18 0700 Therapy Visit Ordering Provider MD Johnson Subjective Patient reports feet hurting a little this morning, but ready for PT Reason for admission Encephalopathy Verified Two Patient Identifiers Yes Time Calculation Start Time 0800 Stop Time 0830 Time Calculation (min) 30 min Is this a Rehab Patient Yes Individual Start Time 0800 Individual Stop Time 0830 Individual Time Calculation (min) 30 min TRANSFERS Stand Pivot Transfers SBA/supervision Sit to Stand SBA/supervision (WW/CUES FOR HAND PLACEMENT AND WALKER MNGMT) Other (Comment) Flexed forward posture with cues to stand upright Gait Gait Assistance SBA/supervision Assistive Device 2 Wheeled walker Ambulation Distance (Feet) 320 feet Other (Comment) Side stepping x 20 feet bilaterally and high knees marching x 20 feet with focus onstanding upright and not shuffling feet when side stepping Exercises Sitting LE Exercise Seated hip isometrics with ball push and band pull x 20 reps. each for strengthening Other (Comment) Sci fit bike with level 3 for 10 minutes to improve B LE's and hip strength and endurance Recommendation PT Recommendation Inpatient Rehab Plan PT Treatments/Interventions Gait Training;Therapeutic Exercises;Therapeutic Activities;Neuromuscular re-education;Patient/family training Progress Progressing toward goals PT Frequency Daily;BID;5 times/week End of Session Safety End of Session Safety Chair alarm set/activated;Call light within reach * GREY Mohr - 12/09/2018 1:47 PM CDT 12/09/18 1100 Therapy Visit Reason for admission Encephalopathy Comorbidities Relevant to OT Seizures, HZTN, HLD, CVA with L side deficits, Falls Ordering Provider MD Johnson Verified Two Patient Identifiers Yes Patient consents to therapy Yes Time Calculation Start Time 1100 Stop Time 1200 Time Calculation (min) 60 min Is this a Rehab Patient Yes Precautions General Precautions Bed Alarm;Chair Alarm;Fall Risk Instructed on Precautions Yes;Needs reinforcement and education Other HX of seizures Subjective Subjective PT. AGREEABLE TO THER. SESSION. Pain Pain No Activity Tolerance Endurance Tolerates 60 min activity with rests Cognition Overall Cognitive Status Impaired Other (Comment) PT. COMPLETED PVC PIPE CONSTRUCTION ACTIVITY (X1 LEVEL B DESIGN) USING MILDRED HANDS TOINCREASE FMC, SEQUENCEING, AND PROBLEM SOLVING FOR IMPROVED ADL INDEP./SAFETY; NOTED PT. REQUIRED MOD CUES AND EXTRA TIME TO INITAITE TASK AND PROPERLY SEQUENCE/EXECUTE DESIGN; EXTRA TIME; NOTED INCREASED TIME NEEDED FOR PROCESSING EACH STEP OF TASK. IADL Medication Management Assistance Standing by assist Medication Management Comment PT. COMPLETED SIMULATED FUNC. MED. MNGMT ACTIVITY X3 MEDICATIONS IN DAILY ORGANIZER; NOTED PT. ABLE TO OPEN ALL MEDICATION BOTTLES AND READ LABELS WITH GOOD SUCCESS; PT.CORRECTLY SORTED 1X A DAY MEDICATION INTO DAILY ORGANIZER; HOWEVER, NOTED INCREASED DIFFICULTY WITHX2 A DAY MEDICATIONS/REQUIRED MOD CUES TO PROPERLY DISTRIBUTE MEDICATIONS AND FOLLOW DOSAGE DIRECTIONS. RECOMMEND SUPERVISION/ASSISTANCE FOR MANAGING MEDICATIONS FOR SAFETY CONCERNS/MEDICATION COMPLIANCE 2/2 COG. DEIFICTS. IADL Comments PT. COMPLETED FUNC. KITCHEN ACTIVITY TO INCREASE DYN. STANDING BALANCE, WALKER SAFETY, AND STRENGTH/ENDURANCE WITH STANDING ACTIVITIES; PT. COMPLETED REACHING IN VARIOUS PLANES INCLUDING OPEN/CLOSE/REMOVE/PLACE ITEMS IN REFRIGERATOR AND CABINETS; SBS/MIN A FOR STEADYING AND SAFETY; CUES FOR WALKER MNGMT, TECH'S, AND SAFETY THROUGHOUT TASK. Functional Transfers Sit to Stand SBA/supervision (WW/CUES FOR HAND PLACEMENT AND WALKER MNGMT) Car Transfers Supervision (WW/CUES FOR TECH, SAFETY, HAND PLACEMENT, WALKER MNGMT) Functional Mobility PT. COMPLETED FUNC. MOBIL. USING WW >75 FT. X2 <-> ROOM WITH SBS FOR SAFETY AND BALANCE; NOTED FORWARD FLEXED POSTURE. Other (Comment) PT. COMPLETED FUNC. XFER ON/OFF ARM CHAIR WITH SBS. Interventions Other (Comment) PT. COMPLETED MILDRED UE ERGOMETER X4 MIN <-> SITTING CHAIR LEVEL TO INCREASE UE STRENGTH AND ENDURANCE FOR IMPROVED ADL/XFER INDEP. AND SAFETY; GOOD TOLERANCE. Modalities Other (Comment) OT/PT IN AGREEMENT WITH DME/LRD UTILIZED Patient/Family Training Self Cares X Transfer Training X DME Education X WALKER MNGMT Precautions X SAFETY Other (Comment) ONE TO ONE/VERBAL/HANDS ON/DEMO; RECEPTIVE TO TASKS COMPLETED AND EDU. PROVIDED. Recommendation OT Recommendation Inpatient Rehab Plan OT Treatment/Intervention Self-care training;Therapeutic exercises;Therapeutic activities;Neuromuscular re-education;Patient/family training;Continued evaluation;Functional activity;Safety Progress Progressing toward goals OT Frequency BID OT plan for next session ADL'S/XFER'S/IADL'S End of Session Safety End of Session Safety Chair alarm set/activated;Call light within reach End of Session Comment PT. SITTING RECLINER CHAIR IN ROOM AT END OF THER. SESSION * Mya Jiménez PTA - 12/09/2018 12:30 PM CDT 12/09/18 0800 Therapy Visit Ordering Provider MD Johnson Subjective PT. AGREEABLE TO THER. SESSION Reason for admission Encephalopathy Verified Two Patient Identifiers Yes Time Calculation Start Time 0800 Stop Time 0900 Time Calculation (min) 60 min Is this a Rehab Patient Yes Individual Start Time 0800 Individual Stop Time 0900 Individual Time Calculation (min) 60 min Precautions General Precautions Bed Alarm;Chair Alarm;Fall Risk Instructed on Precautions Yes;Needs reinforcement and education Pain Pain No Activity Tolerance Endurance Tolerates 60 min activity with rests Cognition Overall Cognitive Status Impaired TRANSFERS Stand Pivot Transfers SBA/supervision Sit to Stand SBA/supervision Other (Comment) Pt demonstrated decreased safety awareness and Pt continues demonstrating moderate flexed trunk with transfer from bed to w/c with verbal instruction for safe use of the walker Gait Gait Assistance SBA/supervision Assistive Device 2 Wheeled walker Ambulation Distance (Feet) 300 feet Other (Comment) Verbal cueing to stand erect and keep walker in closer; take longer stride length Exercises Ankle Pumps x 10 bilaterally Short Arc Quad x 10 reps., 5 second hold with 2# wt. both legs Straight Leg Raise X 10 reps., 5 second hold with 2# wt. both legs Glut Sets x 10 reps. bilaterally Hip Abduction x 10 reps. bilaterally Other (Comment) Sci fit bike with level 3 for 10 minutes to improve B LE's and hip strength and endurance Recommendation PT Recommendation Inpatient Rehab Plan PT Treatments/Interventions Gait Training;Therapeutic Exercises;Therapeutic Activities;Neuromuscular re-education;Patient/family training Progress Progressing toward goals PT Frequency Daily;BID;5 times/week End of Session Safety End of Session Safety Chair alarm set/activated;Call light within reach End of Session Comment Patient performed exercises and riding of the bike very slowly with verbal cues to keep going and try to stay focused on the task at hand * Renetta Johnson MD - 12/09/2018 10:28 AM CDT Mojgan Tabor is a 58-year-old male patient. Note: Patient Active Problem List Diagnosis ??? Seizure (CMS/HCC) ??? Osteoporosis ??? UTI (urinary tract infection) ??? Encephalopathy acute ??? Cerebrovascular accident (CVA) due to thrombosis of right posterior cerebral artery (CMS/HCC) ??? Hyperlipidemia ??? Hypertension ??? Seizure (CMS/HCC) ??? Encephalopathy Past Medical History: Diagnosis Date ??? HLD (hyperlipidemia) ??? Hypertension ??? Seizures (CMS/HCC) ??? Seizures (CMS/HCC) ??? Stroke (CMS/HCC) lt side weakness Current Facility-Administered Medications: ??? acetaminophen (TYLENOL) tablet 650 mg, 650 mg, Oral, Q4H PRN, 650 mg at 12/08/182053 OR acetaminophen (TYLENOL) suppository 650 mg, 650 mg, Rectal, Q4H PRN OR acetaminophen (TYLENOL) 160MG/5ML solution 650 mg, 650 mg, Oral, Q4H PRN, Renetta Johnson MD ??? amlodipine (NORVASC) tablet 5 mg, 5 mg, Oral, Daily, Renetta Johnson MD, 5 mg at 12/09/18 0940 ??? aspirin chewable tablet 81 mg, 81 mg, Oral, Daily, Renetta Johnson MD, 81 mg at 12/09/1842 ??? atorvastatin (LIPITOR) tablet 20 mg, 20 mg, Oral, Daily, Renetta Johnson MD, 20 mg at 12/09/18 0942 ??? bisacodyl (DULCOLAX) suppository 10 mg, 10 mg, Rectal, Daily PRN, Renetta Johnson MD ??? bisacodyl EC (DULCOLAX) tablet 10 mg, 10 mg, Oral, Daily PRN, Renetta Johnson MD, 10 mg at 12/07/18 0554 ??? clonazePAM (KLONOPIN) tablet 0.25 mg, 0.25 mg, Oral, BID PRN, Renetta Johnson MD ??? divalproex EC (DEPAKOTE) delayed release tablet 500 mg, 500 mg, Oral, BID, Renetta Johnson MD, 500 mg at 12/09/1842 ??? docusate sodium (COLACE) capsule 100 mg, 100 mg, Oral, BID, Renetta Johnson MD, 100 mg at 12/08/182042 ??? folic acid (FOLVITE) tablet 1 mg, 1 mg, Oral, Daily, Renetta Johnson MD, 1 mg at 12/09/18941 ??? gabapentin (NEURONTIN) capsule 300 mg, 300 mg, Oral, Nightly at bedtime, Renetta Johnson MD, 300 mg at 12/08/182042 ??? heparin (porcine) injection 5,000 Units, 5,000 Units, Subcutaneous, 2 times per day, 5,000 Units at 12/08/182042 AND [COMPLETED] Moderate Risk for VTE, , , Once, Renetta Johnson MD ??? levETIRAcetam (KEPPRA) tablet 2,000 mg, 2,000 mg, Oral, BID, Renetta Johnson MD, 2,000 mg at 12/09/18941 ??? OXcarbazepine (TRILEPTAL) tablet 450 mg, 450 mg, Oral, BID, Renetta Johnson MD, 450 mg at 12/09/18939 ??? polyethylene glycol (GLYCOLAX) packet 1 packet, 1 packet, Oral, Daily, Renetta Johnson MD, 1 packet at 12/08/18841 ??? tamsulosin (FLOMAX) capsule 0.4 mg, 0.4 mg, Oral, Daily, Renetta Johnson MD, 0.4 mg at ??? vitamin B-1 (THIAMINE) tablet 100 mg, 100 mg, Oral, Daily, Renetta Johnson MD, 100 mg at 12/09/18941 Review of Systems Constitutional: Positive for malaise/fatigue. Negative for diaphoresis. HENT: Negative for congestion. Respiratory: Negative for shortness of breath. Gastrointestinal: Negative for abdominal pain and diarrhea. Neurological: Negative for seizures. Physical Exam Vitals: 12/09/18741 BP: 130/71 Pulse: 78 Resp: 18 Temp: 97.7 ??F (36.5 ??C) SpO2: 100% Physical Exam HENT: Head: Normocephalic. Cardiovascular: Normal rate and regular rhythm. Pulmonary/Chest: No respiratory distress. Abdominal: He exhibits no distension. There is no tenderness. Musculoskeletal: He exhibits no edema. Functional Status Functional Status Sit to Stand: SBA/supervision Stair Management Assistance: SBA/supervision Rolling: (P) Modified independence Shower Transfers : Supervision, Min assist(eob->wew->shwr chair/grab bars) Gait: Gait Assistance: Gait Assistance: SBA/supervision Assistive Device Assistive Device: 2 Wheeled walker Ambulation Distance: Ambulation Distance (Feet): 300 feet Pattern: Patient Active Problem List WBC (x10'3/uL) Date Value 12/05/2018 5.0 HGB (G/DL) Date Value 12/05/2018 13.9 PLT (x10'3/uL) Date Value 12/05/2018 241 Patient Active Problem List INR (no units) Date Value 06/06/2017 1.2 Assessment & Plan: Mojgan Tabor is a 58-year-old male patient with Encephalopathy functional impairment for rehab Encephalopathy Continue PT/OT for mobilization Continue current medical management. Patient Active Problem List Diagnosis ??? Seizure (CMS/HCC) ??? Osteoporosis ??? UTI (urinary tract infection) ??? Encephalopathy acute ??? Cerebrovascular accident (CVA) due to thrombosis of right posterior cerebral artery (CMS/HCC) ??? Hyperlipidemia ??? Hypertension ??? Seizure (CMS/HCC) ??? Encephalopathy RENETTA JOHNSON MD * Shannon Benton - 12/09/2018 9:54 AM CDT 12/09/18 0904 Therapy Visit Subjective pt. was sitting up in chair at b/s. cooperative/pleasant. Patient consents to Therapy Yes Time Calculation Start Time 0900 Stop Time 1000 Time Calculation (min) 60 min Pain Pain No Cognition Orientation Oriented to place;Oriented to person;Oriented to situation;Oriented to time Short-term memory word list inclusion (4 words): 68%. pt. feels his memory deficits are about the same. Pt. was unable to state any strategies/aids he uses at home to help remember important appointments/events or details. Verbal problem solving impressions/assessment 60% deciding factors in making decisions (ID x2 factors) Money pt. attempted Basic Math word problems. He had significant difficulty but declined assist to help ID answer. Pt took approx. x9 minutes to attempt one math problem. Difficulty c basic addition/subtraction. Cognitive overall status Moderate-severe cognitive-communication impairment Cognition impressions/assessment Ongoing cognitive barriers to indep. at d/c. Pt. will likely continue to require daily assist c problem solving, cooking/bill paying/medication management. Diminishedawareness of deficits. Pt. declined his blood thinner shot and stool softener when nursing came in to provide medications. Plan RECEIVING WEIGHER Plan for Next Session continue c POC/basic cognitive goals to improve daily indep. * GREY Mohr - 12/08/2018 4:54 PM CDT 12/08/18 1430 Therapy Visit Reason for admission Encephalopathy Comorbidities Relevant to OT Seizures, HZTN, HLD, CVA with L side deficits, Falls Ordering Provider MD Johnson Verified Two Patient Identifiers Yes Patient consents to therapy Yes Time Calculation Start Time 1430 Stop Time 1500 Time Calculation (min) 30 min Is this a Rehab Patient Yes Precautions General Precautions Bed Alarm;Chair Alarm;Fall Risk Instructed on Precautions Yes;Needs reinforcement and education Subjective Subjective PT. AGREEABLE TO THER. SESSION Pain Pain No Activity Tolerance Endurance Tolerates 30 min activity with rests Cognition Overall Cognitive Status Impaired IADL IADL Comments PT. COMPLETED HOME SAFETY PROBLEM SOLVING CARDS X6 TO INCREASE SAFETY AWARENESS; DISCUSSING EACH PROBLEM PRESENTED, IDENTIFYING PROBLEM/POSSIBLE OUTCOME, AND SOLUTIONS; FAIR SUCCESS WITH TASK. Functional Transfers Sit to Stand SBA/supervision (WW) Functional Mobility PT. COMPLETED FUNC. MOBIL. USING WW >75 FT. X2 WITH SBS FOR SAFETY/BALANCE; NOTED FORWARD FLEXED POSTURE WITH MOBIL.; CUES FOR POSTURE. Other (Comment) PT. COMPLETED FUNC. XFER<->ARM CHAIR USING WW WITH SBS; CUES FOR WALKER MGNT/SAFETY. PT. COMPLETED FUNC. XFER ON/OFF ETB IN COMBO/GRAB BARS/WW WITH SBS FOR SAFETY AND BALANCE/CUES FOR TECH, WW MNGMT, AND SAFETY. PT. COMPLETED FUNC. XFER STEPPING IN/OUT OF TUB AND ON/OFF SHOWERCHAIR WITH BACK/GRAB BARS/WW; CUES FOR TECH'S, SAFETY, WW MNGMT, HAND PLACEMENTS; MIN A FOR SAFETY AND STEADYING. Interventions Other (Comment) PT. COMPLETED 2# FREE WEIGHT THER. EX SITTING ARM CHAIR X15 REPS EACH PLANE (ELBOW FLEX/EXT, WRIST FLEX/EXT, FOREARM PRO/SUP, TRICEP CURL, SHOULDER ABD/ADD) TO INCREASE UE STRENGTH AND ENDURANCE FOR IMPROVED ADL/XFER INDEP. AND SAFETY. Modalities Patient/Family Training PT. AND FAMILY (BROTHER'S) EDUCATED ON SAFE TUB/COMBO XFER TECH AND DME REC. (ETB/SHOWER CHAIR/GRAB BARS); FAIR UNDERSTANDING. Other (Comment) OT/PT IN AGREEMENT WITH DME/LRD UTILIZED Patient/Family Training Self Cares X Transfer Training X DME Education X Precautions X SAFETY Exercise Program X Other (Comment) ONE TO ONE/VERBAL/HANDS ON; RECEPTIVE TO TASKS COMPLETED AND EDU. PROVIDED Recommendation OT Recommendation Inpatient Rehab Plan OT Treatment/Intervention Self-care training;Therapeutic exercises;Therapeutic activities;Neuromuscular re-education;Patient/family training;Continued evaluation;Functional activity;Safety Progress Progressing toward goals OT Frequency BID OT plan for next session ADL'S/XFER'S/COG. End of Session Safety End of Session Safety Chair alarm set/activated;Call light within reach;Family/friend present with patient End of Session Comment PT. SITTING RECLINER CHAIR IN ROOM AT END OF THER. SESSION; PT. BROTHERS IN ROOM. * Marie Bae PTA - 12/08/2018 4:48 PM CDT 12/08/18 1300 Therapy Visit Ordering Provider MD Johnson Subjective Pt stated he had a good lunch Reason for admission Encephalopathy Relevant Comorbidities/ Personal Factors to PT CVA WITH L SIDE WEAKNESS, SEIZURES, FALLS, HTN Verified Two Patient Identifiers Yes Patient consents to therapy Yes Time Calculation Start Time 1300 Stop Time 1330 Time Calculation (min) 30 min Is this a Rehab Patient Yes Individual Start Time 1300 Individual Stop Time 1330 Individual Time Calculation (min) 30 min Total Therapy Minutes Provided 30 Precautions General Precautions Bed Alarm;Chair Alarm;Fall Risk Instructed on Precautions Yes;Needs reinforcement and education Pain Pain No Activity Tolerance Endurance Tolerates 30 min activity with rests Cognition Overall Cognitive Status Impaired TRANSFERS Stand Pivot Transfers SBA/supervision Sit to Stand SBA/supervision Other (Comment) Pt demonstrated decreased safety awareness and Pt continues demonstrating moderate flexed trunk with transfer from bed to w/c with verbal instruction for safe use of the walker Gait Gait Assistance SBA/supervision Assistive Device 2 Wheeled walker Ambulation Distance (Feet) 300 feet Other (Comment) Pt demonstrated fair tolerance with poor balance with leaning forward with occasional leaning to left for safety and balance concern Stairs Stair Management Assistance SBA/supervision Stair Management Technique Two rails;Step to pattern Number of Stairs 12 Other (Comment) Ramp;18% grade/4 feet in length and curb ; 2 4 inch steps with W. W with SBS with fair safety awareness with verbal instruction for correct techniques and sequences for safety and balance Exercises Other (Comment) Sci fit bike with level 3 for 10 minutes to improve B LE's and hip strength and endurance Patient/Family Training Transfer Training x Gait Training x Recommendation PT Recommendation Inpatient Rehab PT Equipment Recommended 2 Wheeled walker Plan PT Treatments/Interventions Gait Training;Therapeutic Exercises;Therapeutic Activities;Neuromuscular re-education;Patient/family training Progress Progressing toward goals PT Frequency Daily;BID;5 times/week End of Session Safety End of Session Safety Call light within reach;Chair alarm set/activated * Joyce Oliveira, RECEIVING WEIGHER STUDENT - 12/08/2018 3:17 PM CDT 12/08/18 1508 Therapy Visit Subjective Pt walked into ST room for Tx. Pt was pleasant and cooperative for entire session. Pt's brother was present for half of session. ST completed safety education regarding problem solving skills for real life situations. Pt verbally confirmed information and provided appropriate solutions. Time Calculation Start Time 1330 Stop Time 1400 Time Calculation (min) 30 min Pain Pain No Cognition Providing solutions Functional problem solving (safety cards) = = 100% min assistance Verbal problem solving impressions/assessment Pt required min assistance of verbal prompts to expand upon responses to incorporate more details into a complete appropriate solutions. Pt met goal criteria and will continue for consistency Deductive reasoning Simple reasoning (word deduction) = = 87% min assistance Verbal reasoning impressions/assessment Pt required min assistance of verbal prompts including rephrasing qestions and providing repetitions for pt to be successful to determine the item being described. Pt met goal criteria and will continue for consistency. Plan RECEIVING WEIGHER Plan for Next Session ST will target functional reading comprehension next Tx. Cosigned by Jyothi Napier RECEIVING WEIGHER at 12/18/2018 3:47 PM CDT * Renetta Johnson MD - 12/08/2018 2:05 PM CDT Mojgan Tabor is a 58-year-old male patient. Progressing well with therapy , sister present this morning, no C/O dizziness, weakness improving Note: Patient Active Problem List Diagnosis ??? Seizure (CMS/HCC) ??? Osteoporosis ??? UTI (urinary tract infection) ??? Encephalopathy acute ??? Cerebrovascular accident (CVA) due to thrombosis of right posterior cerebral artery (CMS/HCC) ??? Hyperlipidemia ??? Hypertension ??? Seizure (CMS/HCC) ??? Encephalopathy Past Medical History: Diagnosis Date ??? HLD (hyperlipidemia) ??? Hypertension ??? Seizures (CMS/HCC) ??? Seizures (CMS/HCC) ??? Stroke (CMS/HCC) lt side weakness Current Facility-Administered Medications: ??? acetaminophen (TYLENOL) tablet 650 mg, 650 mg, Oral, Q4H PRN, 650 mg at 12/06/18 0813 OR acetaminophen (TYLENOL) suppository 650 mg, 650 mg, Rectal, Q4H PRN OR acetaminophen (TYLENOL) 160MG/5ML solution 650 mg, 650 mg, Oral, Q4H PRN, Renetta Johnson MD ??? amlodipine (NORVASC) tablet 5 mg, 5 mg, Oral, Daily, Renetta Johnson MD, 5 mg at 12/08/18 0842 ??? aspirin chewable tablet 81 mg, 81 mg, Oral, Daily, Renetta Johnson MD, 81 mg at 12/08/18 0842 ??? atorvastatin (LIPITOR) tablet 20 mg, 20 mg, Oral, Daily, Renetta Johnson MD, 20 mg at 12/08/18 0842 ??? bisacodyl (DULCOLAX) suppository 10 mg, 10 mg, Rectal, Daily PRN, Renetta Johnson MD ??? bisacodyl EC (DULCOLAX) tablet 10 mg, 10 mg, Oral, Daily PRN, Renetta Johnson MD, 10 mg at 12/07/18 0554 ??? clonazePAM (KLONOPIN) tablet 0.25 mg, 0.25 mg, Oral, BID PRN, Renetta Johnson MD ??? divalproex EC (DEPAKOTE) delayed release tablet 500 mg, 500 mg, Oral, BID, Renetta Johnson MD, 500 mg at 12/08/18841 ??? docusate sodium (COLACE) capsule 100 mg, 100 mg, Oral, BID, Renetta Johnson MD, 100 mg at 12/08/18841 ??? folic acid (FOLVITE) tablet 1 mg, 1 mg, Oral, Daily, Renetta Johnson MD, 1 mg at 12/08/18841 ??? gabapentin (NEURONTIN) capsule 300 mg, 300 mg, Oral, Nightly at bedtime, Renetta Johnson MD ??? heparin (porcine) injection 5,000 Units, 5,000 Units, Subcutaneous, 2 times per day, 5,000 Units at 12/08/18841 AND [COMPLETED] Moderate Risk for VTE, , , Once, Renetta Johnson MD ??? levETIRAcetam (KEPPRA) tablet 2,000 mg, 2,000 mg, Oral, BID, Renetta Johnson MD, 2,000 mg at 12/08/18840 ??? OXcarbazepine (TRILEPTAL) tablet 450 mg, 450 mg, Oral, BID, Renetta Johnson MD, 450 mg at 12/08/18840 ??? polyethylene glycol (GLYCOLAX) packet 1 packet, 1 packet, Oral, Daily, Renetta Johnson MD, 1 packet at 12/08/18841 ??? tamsulosin (FLOMAX) capsule 0.4 mg, 0.4 mg, Oral, Daily, Renetta Johsnon MD, 0.4 mg at ??? vitamin B-1 (THIAMINE) tablet 100 mg, 100 mg, Oral, Daily, Renetta Johnson MD, 100 mg at 07/12/19 0842 Review of Systems Constitutional: Negative for fever. Eyes: Negative for blurred vision. Cardiovascular: Negative for chest pain. Gastrointestinal: Negative for nausea and vomiting. Musculoskeletal: Negative for joint pain and myalgias. Neurological: Negative for dizziness. Psychiatric/Behavioral: Positive for memory loss. The patient is nervous/anxious. Physical Exam Vitals: 12/08/18 0750 BP: 133/68 Pulse: 64 Resp: 16 Temp: 97.6 ??F (36.4 ??C) SpO2: 99% Physical Exam Constitutional: He is oriented to person, place, and time. No distress. HENT: Head: Atraumatic. Cardiovascular: Normal rate. Pulmonary/Chest: No respiratory distress. Abdominal: Soft. He exhibits no distension. There is no tenderness. Musculoskeletal: He exhibits edema. Neurological: He is alert and oriented to person, place, and time. He exhibits abnormal muscle tone. Coordination abnormal. Skin: Skin is dry. Psychiatric: His mood appears anxious. Nursing note and vitals reviewed. Neurologic Exam Mental Status Oriented to person, place, and time. Functional Status Sit to Stand: SBA/supervision Stair Management Assistance: SBA/supervision Rolling: (P) Modified independence Shower Transfers : Supervision, Min assist(eob->wew->shwr chair/grab bars) Gait: Gait Assistance: Gait Assistance: SBA/supervision Assistive Device Assistive Device: 2 Wheeled walker Ambulation Distance: Ambulation Distance (Feet): 300 feet Pattern: WBC (x10'3/uL) Date Value 12/05/2018 5.0 HGB (G/DL) Date Value 12/05/2018 13.9 PLT (x10'3/uL) Date Value 12/05/2018 241 INR (no units) Date Value 06/06/2017 1.2 Assessment & Plan: Mojgan Tabor is a 58-year-old male patient with Encephalopathy functional impairment for rehab Encephalopathy Mental status at base line . Mild balance deficits. PT, OT for gait training and ADL training, Nursing for bowel and bladder care. Speech therapy for swallow evaluation and cognitive evaluation. Patient Active Problem List Diagnosis ??? Seizure (CMS/HCC) on Keppra 2000 mg 2 times a day and Trileptal 450 mg 2 times a day, on Klonopin p.r.n. 0.25 mg for seizures. Stable now Also Depakote . gabapentin decresed to 300 HS from 12/08 sister will visit with him to neurology 12/26 at [facility] ??? Osteoporosis ??? UTI (urinary tract infection) ??? Encephalopathy acute ??? Cerebrovascular accident (CVA) chronic with left-sided weakness. Continue Aspirin 81 daily, Atorvastatin 20 at night daily, PT, OTfor gait, balance, and ADL training Strength in left upper much better . ??? Hyperlipidemia ??? Hypertension on Amlodipine 5 mg daily. BP in 130's ??? Seizure (CMS/HCC) ??? Encephalopathy Neuropathic pain, Gabapentin 300 mg 3 times a day. We will try to wean him off from the Gabapentin. Supplements and Thiamine,Folic Acid daily. Docusate, and MiraLax for constipation, Cognitive deficits : Speech worning, need to cut down sz meds as his cognition is poor gabapentin decreased to 300 HS from today RENETTA JOHNSON MD * Marie Kathia, SEWING MACHINE OPERATOR - 12/08/2018 12:44 PM CDT 12/08/18 1130 Therapy Visit Ordering Provider MD Johnson Subjective Pt stated he is doing fine Reason for admission Encephalopathy Relevant Comorbidities/ Personal Factors to PT CVA WITH L SIDE WEAKNESS, SEIZURES, FALLS, HTN Verified Two Patient Identifiers Yes Patient consents to therapy Yes Time Calculation Start Time 1130 Stop Time 1200 Time Calculation (min) 30 min Is this a Rehab Patient Yes Individual Start Time 1130 Individual Stop Time 1200 Individual Time Calculation (min) 30 min Total Therapy Minutes Provided 30 Precautions General Precautions Bed Alarm;Chair Alarm;Fall Risk Instructed on Precautions Yes;Needs reinforcement and education Pain Pain No Activity Tolerance Endurance Tolerates 30 min activity with rests Cognition Overall Cognitive Status Impaired TRANSFERS Stand Pivot Transfers Min assist Sit to Stand SBA/supervision;Min assist Other (Comment) Pt demonstrated decreased safety awareness and Pt continues demonstrating moderate flexed trunk with transfer from bed to w/c with verbal instruction for safe use of the walker Gait Gait Assistance Min assist;SBA/supervision Assistive Device 2 Wheeled walker Ambulation Distance (Feet) 300 feet Other (Comment) Pt continues demonstrating moderate leaning forward posture with W.W with min assist for safety and balance and pt required verbal instruction for upright posture and staying closer to the walker for safety Balance Other (Comment) In parallel bars; side stepping, retro walking x 3 lengths with SBS with verbal instruction for picking up L LE for safety and balance Patient/Family Training Transfer Training x Gait Training x Recommendation PT Recommendation Inpatient Rehab PT Equipment Recommended 2 Wheeled walker Plan PT Treatments/Interventions Gait Training;Therapeutic Exercises;Therapeutic Activities;Neuromuscular re-education;Patient/family training Progress Progressing toward goals PT Frequency Daily;BID;5 times/week End of Session Safety End of Session Safety Chair alarm set/activated;Call light within reach * Briana Ray OTR - 12/08/2018 12:42 PM CDT 12/08/18 0900 Therapy Visit Reason for admission Encephalopathy Comorbidities Relevant to OT Seizures, HZTN, HLD, CVA with L side deficits, Falls Previous Occupational Therapy Inpatient Therapy Ordering Provider MD Johnson Verified Two Patient Identifiers Yes Patient consents to therapy Yes Time Calculation Is this a Rehab Patient Yes Individual Start Time 0900 Individual Stop Time 1000 Individual Time Calculation (min) 60 min Total Therapy Minutes Provided 60 Precautions General Precautions Bed Alarm;Chair Alarm;Fall Risk Instructed on Precautions Yes;Needs reinforcement and education Other HX of seizures Subjective Subjective PT REQUESTED TO COMPLETE LIVE SHWR. AFTER SHWR, PT REQUESTED TO COMPLETE SHAVING AND ORAL CARE. Pain Pain No Activity Tolerance Endurance Tolerates 60 min activity with rests Activity Tolerance Comments GOOD TOLERANCE, NO COMPLAINTS OF FATIGUE Cognition Overall Cognitive Status Impaired Orientation Level Oriented X4 ADL Grooming Assistance Stand by;Modified independent (Device) Grooming Deficit Increased time to complete;Supervision/safety (SEATED IN W/C AT SINK) Grooming Comment PT COMPLETED SHAVING/ORAL CARE FROM SEATED W/C AT SINK. ABLE TO MANAGE ALL CONTAINERS AND SAFELY COMPLETE TASKS FROM SEATED WITH APPROPRIATE TIME. Bathing Assistance Alternating sit/stand Bathing Deficit Increased time to complete;Supervision/safety;Verbal cueing;Steadying;Setup Bathing Comment LIVE SHWR/GRAB BARS/HHSH/SHWR CHIAR WITH BACK; ABLE TOP ACCESS ALL AREAS WITH HHSH;CLOSE SUPERVISION IN STANDING FOR SAFETY UE Dressing Assistance Stand by;Modified independent (Device);Sitting in chair (W/C AT SINK) UE Dressing Deficit Increased time to complete;Supervision/safety UE Dressing Comment PULLOVER SHIRT FROM SEATED IN W/C LE Dressing Assistance Stand by;Minimal LE Dressing Deficit Setup;Steadying;Requires assistive device for steadying;Verbal cueing;Supervision/safety;Increased time to complete LE Dressing Comment SEATED W/C->STAND AT SINK; ELASTIC WASIT PANTS/PULLOVER SHIRT/TENNIS SHOES/SOCKS; SBS WITH OCCASSIONAL MIN ASSIST FOR BALANCE 2/2 BACKWARD LEAN. PT EDU ON POSTURE/POSITIONING IN ORDER TO INCREASE STABILITY IN STANIDNG. DEMO FAIR CARRYOVER Functional Transfers Sit to Stand SBA/supervision Shower Transfers Supervision;Min assist (eob->wew->shwr chair/grab bars) Functional Mobility PT COMPLETED FUNCT MOBILITY WITHIN ROOM WITH WW WITH SBS/OCCASSIONAL MIN ASSISTFOR WW MGMT WITH VCS FOR AE MGMT. DEMO IMPORVED SAFETY IN STAND TO SIT TO RECLINER S/P EDU Other (Comment) PT COMPLETED LIVE SHWR XFER WITH WW STAND PIVOT TO SHWR CHAIR WITH BACK/GRAB BARS WITH SBS/OCCASSIONAL MIN ASSIST WITH VCS FOR TECH/AE MGMT/HAND PLCAEMENT AND VCS FOR POSUTRE THROUGHOUT Modalities Patient/Family Training PTS FAMILY PRESENT. STATES PTS HOME CONTAINS TUB/SHWR COMBO. FAMILY REPROTSCONCERNS WITH TUB XFERS. THERAPIST DISCUSSED TRIALING ACTIVIYT NEXT SESSION. Recommendation OT Recommendation Inpatient Rehab OT Equipment Recommended To Be Determined Plan OT Treatment/Intervention Self-care training;Therapeutic exercises;Therapeutic activities;Neuromuscular re-education;Patient/family training;Continued evaluation;Functional activity;Safety Progress Progressing toward goals OT Frequency BID OT plan for next session IADLS/ADLS/BALANCE/SAFETY/COG End of Session Safety End of Session Safety Chair alarm set/activated;Call light within reach;Family/friend present with patient End of Session Comment PT POSITIONED IN RELCINER WITH ALL NEEDS IN REACH ALEJANDRA HOOK * Juan Diego Giles, JOINT MACHINE OPERATOR - 12/07/2018 4:14 PM CDT Patient participated in family conference. Conference was scheduled based on family availability. Based on patient and families documented learning style the team discussed patient's diagnosis, impairments, progress, barriers to discharge and a discharge plan. Patient had no concerns about his progress or discharge plan. Patient had no question or concerns about his rehab. SW met with patient after the team staffing. The team plan to continue therapy and then d/c patient home on 12/12/18. The patient agreed with This d/c plan. SW left a VM for patient's sister today re:d/c plan. Await call back Will continue to follow up with family via daily care calls and weekly family meetings. Patient's s isterAdriane,spoke with SW today while visiting patient. She agreed with all discharge plans. Patient and family agreed to [facility] seeing patient. * JOSIAS Villanueva - 12/07/2018 4:14 PM CDT 12/07/18 1300 Therapy Visit Subjective The pt walked to ST from OT. Pt was pleasant and cooperative for all tasks given in session. Pt's brother was present for entire session. Pt's brother stated that he has noticed an improvement in pt's strength, especially in his ability to walk better. Time Calculation Start Time 1330 Stop Time 1400 Time Calculation (min) 30 min Pain Pain No Reading Comprehension Functional information Functional reading comprehension (weather forecast) = 02/06 = 90% min assistance Reading comprehension impressions/assessment Pt had difficulty answering questions involving inferencing. Pt required min verbal and visual cues for pt to be successful. Cognition Deductive reasoning Simple reasoning (inconsistencies in sentences) = 04/12 = mod assistance Verbal reasoning impressions/assessment Pt appeared to have a difficult time understanding the directions of correcting the sentences. Pt tended to provide a reason for the sentences ST gave. Pt required mod assistance of verbal prompts of asking questions and fill in the blank cues for pt to be successful. Plan RECEIVING WEIGHER Plan for Next Session ST will target recent memory next session. * Marie Bae PTA - 12/07/2018 3:42 PM CDT 12/07/18 1400 Therapy Visit Ordering Provider MD Alex Ruffin Pt agreed to work with therapy Reason for admission Encephalopathy Relevant Comorbidities/ Personal Factors to PT CVA WITH L SIDE WEAKNESS, SEIZURES, FALLS, HTN Verified Two Patient Identifiers Yes Patient consents to therapy Yes Time Calculation Start Time 1400 Stop Time 1430 Time Calculation (min) 30 min Is this a Rehab Patient Yes Individual Start Time 1400 Individual Stop Time 1430 Individual Time Calculation (min) 30 min Total Therapy Minutes Provided 30 Precautions General Precautions Bed Alarm;Chair Alarm;Fall Risk Instructed on Precautions Yes;Needs reinforcement and education Pain Pain No Activity Tolerance Endurance Tolerates 30 min activity with rests TRANSFERS Stand Pivot Transfers Min assist Sit to Stand SBA/supervision;Min assist Other (Comment) Pt demonstrated decreased safety awareness with all activities with very slow pace and Pt demonstrated moderate flexed trunk with transfer from bed to w/c with verbal instruction for safe use of the walker Gait Gait Assistance Min assist;SBA/supervision Assistive Device 2 Wheeled walker Ambulation Distance (Feet) 300 feet Other (Comment) Pt demonstrated moderate leaning forward posture with W.W with min assist for safety and balance and pt required verbal instruction for upright posture and staying closer to the walker for safety Stairs Stair Management Assistance Min assist;SBA/supervision Stair Management Technique Two rails;Step to pattern Number of Stairs 12 Other (Comment) Ramp;18% grade/4 feet in length and curb ; 2 4 inch steps with W. W with SBS to minassist Exercises Other (Comment) Sci fit bike with level 3 for 10 minutes to improve B LE's and hip strength and endurance Patient/Family Training Transfer Training x Gait Training x Stair Climbing x Exercise Program x Recommendation PT Recommendation Inpatient Rehab PT Equipment Recommended 2 Wheeled walker Plan PT Treatments/Interventions Gait Training;Therapeutic Exercises;Therapeutic Activities;Neuromuscular re-education;Patient/family training Progress Progressing toward goals PT Frequency Daily;BID;5 times/week End of Session Safety End of Session Safety Call light within reach;Chair alarm set/activated * Lacie Gilbert, OTR - 12/07/2018 3:26 PM CDT 12/07/18 1300 Therapy Visit Reason for admission Encephalopathy Comorbidities Relevant to OT Seizures, HZTN, HLD, CVA with L side deficits, Falls Previous Occupational Therapy Inpatient Therapy Ordering Provider MD Johnson Verified Two Patient Identifiers Yes Patient consents to therapy Yes Time Calculation Is this a Rehab Patient Yes Individual Start Time 1300 Individual Stop Time 1330 Individual Time Calculation (min) 30 min Total Therapy Minutes Provided 30 Precautions General Precautions Bed Alarm;Chair Alarm;Fall Risk Instructed on Precautions Yes;Needs reinforcement and education Subjective Subjective Pt agreeable to therapy; brother Jim watched session. Activity Tolerance Endurance Tolerates 30 min activity with rests Cognition Overall Cognitive Status Impaired Arousal/Alertness Delayed responses to stimuli Attention Span Attends with cues to redirect Memory Decreased short term memory;Decreased recall of biographical information Orientation Level Oriented X4 Following Commands Follows one step commands with repetition Safety Judgment Decreased awareness of need for safety Awareness of Errors Assistance required to identify errors made Deficits Decreased awareness of deficits Problem Solving Assistance required to generate solutions Motor Planning Appears intact Perseveration Not present Initiation Cues to initiate tasks Other (Comment) Pt moves slowly and has delayed response to direction; requires cues for initiationand task completion IADL PT AMBULATED FROM THE ROOM FROM TO THE GYM >150 WITH SBS/WW Medication Management Assistance Moderate assist Medication Management Comment Pt competed med screener with score 12/14. Pt could not give accuraterespresentation of med mgmt at home. Pt completed sorting 1 med into pill box and needed assistancewith sequencing. Pt reports having same pill box at home, but he only uses it for am meds. Pt couldnot tell me how he takes his PM pills. Brothjennifer Fernandez reported that pt usually does ok with his medsand family helps sometimes. Coordination Coordination intact Other (Comment) Pt able to open/close childproof meds bottles x3; pt placed meds in pill urban planner Patient/Family Training Self Cares X Transfer Training X Other (Comment) Discussed med mgmt with pt and pt's brother Jim. Jim said family is willing to help with meds. OT Assessment OT Assessment Pt is motivated but lack of attention, initiation, and min insight into deficits is abarrier. Continue to work on goals for safety Recommendation OT Recommendation Inpatient Rehab OT Equipment Recommended To Be Determined Plan OT Treatment/Intervention Self-care training;Therapeutic exercises;Therapeutic activities;Neuromuscular re-education;Patient/family training;Continued evaluation;Functional activity;Safety Progress Progressing toward goals OT Frequency BID End of Session Safety End of Session Safety (Pt handed off to RECEIVING WEIGHER.) * Tena Gagnon RN - 12/07/2018 2:35 PM CDT 12/07/18 1300 Attendees Reporting period Week [address] Johnson Nurse Tena Gagnon RN PT Dionne Israel PT OT Lacie Gilbert OTR-L RECEIVING WEIGHER Delilah Harris RECEIVING WEIGHER-[facility] Mail [employer]riers Supervisor Juan Diego Giles [facility] Other Cony Holcomb OTR-L Medical Active Medical Problems See today's MD progress note Interdisciplinary Assessment Underlying impairments Balance;Coordination;Safety awareness;Activity tolerance;Strength;Cognition Social Support Social Support Other (Comment) (siblings-brother and sister) Barriers to Community Discharge Safety;Cognition;Medication management;Lack of caregiver;No drivingrecommended Medication Management Medication Management Discharge management Teaching Needed Home medication management Teaching Completed Will continue through discharge Medication management comments VTE:Hep SQ, multiple high dose seizure medications Skin Integrity Skin Integrity Intact;Other (comment) (Dry ) Pain Pain Location Head (mild) Pain Intervention(s) Emotional Support;Medication;Rest Pain Controlled Yes Teaching Needed will encourage family envolvement in medication management upon discharge Bladder Bladder Continent Bladder current FIMS 5 - Staff removes or empty. supervision Bladder goal FIMS 6 - Independent with aids (collecting device, cath kit, external condom, bedpan, urinal, urinary diversion) Bowel Bowel Continent Bowel current FIMS 5 - Requires set-up, emptying, supervision Bowel goal FIMS 6 - Independent with device (ostomy, bedpan, commode) Toilet transfers current FIMS 5 - Requires set-up, supervision or cueing for tranfer Toilet transfers goal FIMS 6 - Uses grab bar, slide board, special seat, orthosis, prosthetic (LRD, grab bars) Safety Intervention Safety Intervention used Bed alarm;Personal alarm Swallowing and/or Eating Solids Regular diet Liquid consistency Thin liquids Eating current FIMS 4 - Patient does 75% or more (hands on/min. assist) Eating goal FIMS 5 - Supervision;5 - Helps opening containers, cutting up food Communication Primary method of comprehension Auditory Aud Comprehension Current FIMS 4 - Understands directions/conversations about only daily basic needs (self cares, eating pain) 75-90% Aud Comprehension Goal FIMS 6 - Understands complex/abstract with mild difficulty or increaseed time Primary method of expression Vocal Verbal expression current FIMS 6 - Expresses comples/abstract ideas with mild difficulty Verbal expression goal FIMS 7 - Expresses complex/abstract ideas clearly and fluently Cognition Problem solving current FIMS 2 - Solves routine problems 25-49% of the time Problem solving goal FIMS 5 - Solves routine problems >90% of time, may need cueing/supervision Memory current FIMS 2 - Recognizes, executes requests, remembers 25-49% Memory goal FIMS 6 - Mild difficulty remembering, needs additional time, may use aids Social interaction current FIMS 5 - Supervison, cueing, coaxing to participate <10% of time Social interaction goal FIMS 6 - Requires medication (antidepressant, anti-anxiety) Mobility Transfers - bed/chair/wheelchair current FIMS 5 - Supervision or cueing Transfers - bed/chair/wheelchair goal FIMS 6 - Uses bedrails, slide board, grab bars or walker to assist with transfers, requires more time, safety issues Bed mobility comments SBS Transfer- bed/chair/wheelchair comments SBS Other transfers (car, floor) comments MIN A/WW Primary mode of locomotion Walk Walking current FIMS 4 - Walks 150ft with steadying assist / contact guard Walking goal FIMS 6 - Walks 150ft or more with assistive device Walking distance 250 ft Walking assistive devices used Wheeled walker Walking assistance Min assist Wheelchair current FIMS 0 - No pushed in w/c by helper or does not use wheelchair Wheelchair current goal FIMS 1 - Propels <50ft or performs 25% of effort or requires 2 assist Wheelchair distance 0 ft Wheelchair comments NA pt is ambulatory Stairs current FIMS 4 - Does 12-14 stairs with steadying / contact guard Stairs goal FIMS 6 - Does 12-14 stairs with assistive device, rails, timely manner, safety issues Number of stairs 12 Stair Management Assistance Min assist Stair Management Technique Two rails;Step to pattern;Forward Training needed Bed;Bed/Chair/WC transfer;Car transfer;Gait;Home exercise program;Precautions;Stairs Training completed Wheelchair management Self cares Grooming current FIMS 5 - Set-up Grooming goal FIMS 6 - Requires device, extra time Grooming comments (Pt appears to perseverate while shaving) Bathing current FIMS 4 - Patient does 75% or more (hands on/ min assist Bathing goal FIMS 6 - Requires device, extra time, safety issues Bathing comments (PT appears to perseverate when bathing) Dressing upper body current FIMS 6 - Requires device, extra time Dressing upper body goal FIMS 7 - Completely independent Dressing lower body current FIMS 4 - Patient does 75% or more (assists with closure, hands on/min) Dressing lower body goal FIMS 7 - Completely independent Toileting current FIMS 4 - Patient does 75% or more (hands on/min assist Toileting Goal FIMS 6 - Specialized equipment, extra time, safety issues Transfers tub/shower current FIMS 4 - Requires contact guard or steadying/min assist Transfers tub/shower Wet transfer Transfers tub/shower goal FIMS 6 - Requires equipment (tub bench, shower chair) Therapy Upper extremity ROM/strength AROM WFLS/STRENGTH 4/5 (Bilateral UE ROM WFL; Strength: R 5/5, L 4/5) Lower extremity ROM/strength 5/5 throughout Balance PT TINETTI: 05/26 HIGH FALL RISK Balance OT SBS (Pt used WW and grab bars in room for stability and safety) Safety FAIR Home management (Pt reports home careworker for ADLs) Interdisciplinary/Team goals ADLs Increase all ADLs to Mod I (PT, OT, RN) ADL Goal Progress Continue Communication The pt will display good safety awareness across various scenarios for safe transition back to functional living environment. (PT RN) Communication Goal Progress Continue Elimination Continue adequate elimination (PT RN) Elimination Goal Progress Continue Medication Knowledge of home medication management (PT, OT, RN) Medication Goal Progress Continue Mobility Increase functional mobility to mod I. (PT, OT, RN) Mobility Goal Progress Continue Nutrition Encourage adequate PO/fluids intake (PT, OT, RN) Nutrition Goal Progress Continue Safety Fall precention measures to return home (PT, OT, RN) Safety Goal Progress Continue Skin Mainstain skin integrity (PT, OT, RN) Skin Goal Progress Continue Swallowing The pt will tolerate regular solids and thin liquids with no clinical s/s of penetration/aspiration. (OT,R,SP) Swallow Goal Progress Continue Case Management Comments D/C 12/12 (Simultaneous filing. User may not have seen previous data.) Recommendations Team recommendations Home with HH (PT OT RN SP, WW) Expected length of stay 5-7 days Planned discharge destination Home I, Dr. Renetta Johnson, attest that I lead this patient's team conference on today's date. Cosigned by Renetta Johnson MD at 12/07/2018 3:39 PM CDT * Carmel Her - 12/07/2018 1:11 PM CDT 12/07/18 0800 Therapy Visit Ordering Provider MD Johnson Subjective Pt was lying supine in bed when SEWING MACHINE OPERATOR arrived. Pt agreed to PT session today. Reason for admission Encephalopathy Relevant Comorbidities/ Personal Factors to PT CVA WITH L SIDE WEAKNESS, SEIZURES, FALLS, HTN Verified Two Patient Identifiers Yes Patient consents to therapy Yes Time Calculation Start Time 0800 Stop Time 0900 Time Calculation (min) 60 min Is this a Rehab Patient Yes Individual Start Time 0800 Individual Stop Time 0900 Individual Time Calculation (min) 60 min Total Therapy Minutes Provided 60 Minutes Precautions General Precautions Bed Alarm;Chair Alarm;Fall Risk Instructed on Precautions Yes;Needs reinforcement and education Pain Pain No Activity Tolerance Endurance Tolerates 60 min activity with rests Cognition Overall Cognitive Status Impaired Bed Mobility Rolling Modified independence Supine to Sit SBA/supervision Other (Comment) Pt was able to put his own shoes on while sitting EOB at the beginning of PT session. TRANSFERS Sit to Stand SBA/supervision (with WW) Bed to Chair Min assist;SBA/supervision (with WW and cues for safety) Gait Gait Assistance Min assist Assistive Device 2 Wheeled walker Ambulation Distance (Feet) 265ft Other (Comment) Pt ambulated with slight L foot drag. Pt was educated on picking up L foot to make sure he is not dragging his foot. Pt has decreased heel strike in both feet. Pt ambulates with slow renae. VC were needed to tell pt to stand up tall while ambulating. Stairs Stair Management Assistance Min assist Stair Management Technique Two rails;Step to pattern Number of Stairs 12 Other (Comment) Ramp (18% grade with 2- 4inch curb steps.) Min assist with vc for ww placement during curb steps. Pt was educated on technique of ascending and descending ramp and curb steps prior topt performing them. Pt showed understandind of technique, but will require more practice to performsafely. Balance Other (Comment) in // bars: side stepping X 4 lengths, tandem walking foward/backward X 2 lengths, walking heel to toe X 4 lengths, and rocking back and forth to increase heel strike and toe off. Pt required rests inbetween each exercise. Pt will require more practice to increase step height. Exercises Other (Comment) Sci Fit bike with level 2.7 for 7 min to increase B LE strength and increase stamina. Patient/Family Training Bed Mobility X Transfer Training X Gait Training X Exercise Program X Plan PT Treatments/Interventions Gait Training;Therapeutic Exercises;Therapeutic Activities;Neuromuscular re-education;Patient/family training Progress Progressing toward goals PT Frequency Daily;BID;5 times/week PT plan for next session Cont with gait training, work on heel strike, balance activites. End of Session Safety End of Session Safety Chair alarm set/activated;Call light within reach Cosigned by Tamica Espinoza PTA at 12/07/2018 3:18 PM CDT * Delilah Harris, RECEIVING WEIGHER - 12/07/2018 11:59 AM CDT 12/07/18 1000 Therapy Visit Subjective Pt walked to room from OT. Pt was pleasant, cooperative, and motivated for given tasks. Pt states that he has noticed improvements in overall abilities since admission date. Discussed routine of medical staff meeting regarding pt's progress. Time Calculation Start Time 1000 Stop Time 1030 Time Calculation (min) 30 min Pain Pain No Receptive Language Yes/no questions Complex yes/no questions = 03/09 = 91% min assistance Receptive language impressions/assessment Pt appeared to require additional time to answer questions correctly, and needed min assistance once of repetition and description cues to be successful. Cognition Providing solutions Functional problem solving (missing equipment) = 03/08 = 100% min assistace Verbal problem solving impressions/assessment Pt required min assistance of descriptive and situational cues to consider alternative solutions to a given situation. Pt also required additional time to think through given problems to provide an appropriate solution. Plan RECEIVING WEIGHER Plan for Next Session ST will target simple reasoning in PM. * Vanessa Evelia Gilbert, GREY - 12/07/2018 11:31 AM CDT 12/07/18 0900 Therapy Visit Reason for admission Encephalopathy Ordering Provider MD Johnson Verified Two Patient Identifiers Yes Patient consents to therapy Yes Time Calculation Start Time 0900 Stop Time 1000 Time Calculation (min) 60 min Is this a Rehab Patient Yes Precautions General Precautions Bed Alarm;Chair Alarm;Fall Risk Instructed on Precautions Yes;Needs reinforcement and education Subjective Subjective PT AGREEABLE TO THERAPY; WAS WITH NURSING WALKING TO BATHROOM UPON ENTERANCE Pain Pain No Activity Tolerance Endurance Tolerates 60 min activity with rests Cognition Overall Cognitive Status Impaired ADL Grooming Assistance Stand by;Minimal;Standing at sink Grooming Deficit Steadying;Verbal cueing;Supervision/safety;Increased time to complete;Standing with assistive device;Wash/dry hands Grooming Comment WASHING HANDS STANDING AT SINK WITH WW; MIN A FOR STEADYING AT TIMES Toileting Assistance Stand by Toileting Deficit Verbal cueing;Supervision/safety;Increased time to complete Toileting Comment 3IN1 COMMODE OVER STD TOILET; EXTRA TIME, STANDING WITH WW FOR CLOTHING MNGMNT Additional Comments NOTED PT DID HAVE A BM THIS MORNING AND IT WAS THE FIRST BM SINCE November. PT SPENT ~20 MINUTES IN BATHROOM DURING SESSION IADL Medication Management Assistance Minimal assist;Moderate assist Medication Management Comment PT COMPLETED SORTING X4 DIFFERENT MEDS INTO AM/PM PILL SORTER TO INCREASE INDEP. WITH FUNC. IADLS UPON DISCHARGE HOME; PT REQUIRED ASSIST WITH READING ALL LABELS AND SEQUENCING WHERE TO CORRECTLY PUT EACH MEDICATION IN SORTER; PT STATED HE DOES HAVE A PILL SORTER AT HOME AND FILLS IT THE SAME WAY, ALTHOUGH DID NOT FILL ANY MEDICATION CORRECTLY WITHOUT ASSISTANCE FROMTHERAPIST; WILL NEED ASSISTANCE WITH MEDICATION MNGMNT Functional Transfers Sit to Stand SBA/supervision Functional Mobility FUNC. MOBIL. FROM ROOM TO THERAPY GYM WITH WW/SBS-MIN A. WELL FUNC. MOBIL. FROM THERAPY GYM TO SPEECH THERAPY WITH WW/SBS- PT IS IMPULSIVE AND NEEDS CUES AND REMINDERS TO SLOW DOWN AT TIMES Balance Other (Comment) PT COMPLETED DYNAMIC STANDING BALANCE ACTIVITY OF [facility] HOME DEMONSTRATION AGENT PLACE X25 RINGS USING LEFT HAND AND CROSSING MIDLINE TO RIGHT SIDE OF RING ARCH; STANDING WITH WW AT TABLETOP TO INCREASE DYNAMIC BALANCE WELL INCREASE STRENGTH ON LEFT SIDE OF BODY; GOOD SUCCESS WITH TASK WITH MIN CUESFOR TASK COMPLETION. Modalities Other (Comment) OT/PT IN AGREEMENT WITH DME/LRD UTILIZED Patient/Family Training Self Cares X Transfer Training X DME Education X Precautions X Other (Comment) ONE TO ONE EDU./GOOD UNDERSTANDING OF TASKS COMPLETED Recommendation OT Recommendation Inpatient Rehab Plan OT Treatment/Intervention Self-care training;Therapeutic exercises;Therapeutic activities;Neuromuscular re-education;Patient/family training;Continued evaluation;Functional activity;Safety Progress Progressing toward goals OT Frequency BID OT plan for next session ADLS/XFERS/STRENGTH End of Session Safety End of Session Safety Other (Comment) End of Session Comment PT HANDED OFF TO SPEECH AT END OF SESSION * Renetta Johnson MD - 12/07/2018 11:03 AM CDT Mojgan Tabor is a 58-year-old male patient. doing better this AM , no SOB with activity, pain well controlled. Swelling in feet. Note: Patient Active Problem List Diagnosis ??? Seizure (CMS/HCC) ??? Osteoporosis ??? UTI (urinary tract infection) ??? Encephalopathy acute ??? Cerebrovascular accident (CVA) due to thrombosis of right posterior cerebral artery (CMS/HCC) ??? Hyperlipidemia ??? Hypertension ??? Seizure (CMS/HCC) ??? Encephalopathy Past Medical History: Diagnosis Date ??? HLD (hyperlipidemia) ??? Hypertension ??? Seizures (CMS/HCC) ??? Seizures (CMS/HCC) ??? Stroke (CMS/HCC) lt side weakness Current Facility-Administered Medications: ??? acetaminophen (TYLENOL) tablet 650 mg, 650 mg, Oral, Q4H PRN, 650 mg at 12/06/18 0813 OR acetaminophen (TYLENOL) suppository 650 mg, 650 mg, Rectal, Q4H PRN OR acetaminophen (TYLENOL) 160MG/5ML solution 650 mg, 650 mg, Oral, Q4H PRN, Renetta Johnson MD ??? amlodipine (NORVASC) tablet 5 mg, 5 mg, Oral, Daily, Renetta Johnson MD, 5 mg at 12/07/18 1049 ??? aspirin chewable tablet 81 mg, 81 mg, Oral, Daily, Renetta Johnson MD, 81 mg at 12/07/18 1050 ??? atorvastatin (LIPITOR) tablet 20 mg, 20 mg, Oral, Daily, Renetta Johnson MD, 20 mg at 12/07/18 1048 ??? bisacodyl (DULCOLAX) suppository 10 mg, 10 mg, Rectal, Daily PRN, Renetta Johnson MD ??? bisacodyl EC (DULCOLAX) tablet 10 mg, 10 mg, Oral, Daily PRN, Renetta Johnson MD, 10 mg at 12/07/18 0554 ??? clonazePAM (KLONOPIN) tablet 0.25 mg, 0.25 mg, Oral, BID PRN, Renetta Johnson MD ??? divalproex EC (DEPAKOTE) delayed release tablet 500 mg, 500 mg, Oral, BID, Renetta Johnson MD, 500 mg at 12/07/18 1049 ??? docusate sodium (COLACE) capsule 100 mg, 100 mg, Oral, BID, Renetta Johnson MD, 100 mg at 12/07/18 1049 ??? folic acid (FOLVITE) tablet 1 mg, 1 mg, Oral, Daily, Renetta Johnson MD, 1 mg at 12/07/18 1050 ??? gabapentin (NEURONTIN) capsule 300 mg, 300 mg, Oral, TID, Renetta Johnson MD, 300 mg at 12/07/18 1050 ??? heparin (porcine) injection 5,000 Units, 5,000 Units, Subcutaneous, 2 times per day, 5,000 Units at 12/07/18 1047 AND [COMPLETED] Moderate Risk for VTE, , , Once, Renetta Johnson MD ??? levETIRAcetam (KEPPRA) tablet 2,000 mg, 2,000 mg, Oral, BID, Renetta Johnson MD, 2,000 mg at 12/07/18 1047 ??? OXcarbazepine (TRILEPTAL) tablet 450 mg, 450 mg, Oral, BID, Renetta Johnson MD, 450 mg at 12/07/18 1048 ??? polyethylene glycol (GLYCOLAX) packet 1 packet, 1 packet, Oral, Daily, Renetta Johnson MD, 1 packet at 12/06/18 0811 ??? tamsulosin (FLOMAX) capsule 0.4 mg, 0.4 mg, Oral, Daily, Renetta Johnson MD, 0.4 mg at 049 ??? vitamin B-1 (THIAMINE) tablet 100 mg, 100 mg, Oral, Daily, Renetta Johnson MD, 100 mg at 12/07/18 1050 Review of Systems Constitutional: Negative for fever. Eyes: Negative for blurred vision. Cardiovascular: Negative for chest pain. Gastrointestinal: Negative for nausea and vomiting. Musculoskeletal: Negative for joint pain and myalgias. Neurological: Positive for focal weakness. Negative for dizziness. Psychiatric/Behavioral: The patient is nervous/anxious. Physical Exam Vitals: 12/07/18 0900 BP: 133/84 Pulse: 81 Resp: 16 Temp: 98.1 ??F (36.7 ??C) SpO2: 99% Physical Exam Constitutional: He is oriented to person, place, and time. No distress. HENT: Head: Atraumatic. Cardiovascular: Normal rate. Pulmonary/Chest: No respiratory distress. Abdominal: Soft. He exhibits no distension. There is no tenderness. Musculoskeletal: He exhibits edema. Neurological: He is alert and oriented to person, place, and time. Coordination abnormal. Skin: Skin is dry. Psychiatric: His mood appears anxious. Nursing note and vitals reviewed. Neurologic Exam Mental Status Oriented to person, place, and time. Functional Status Sit to Stand: (P) SBA/supervision Stair Management Assistance: (P) Min assist Rolling: (P) Modified independence Shower Transfers : (P) Min assist Gait: Gait Assistance: Gait Assistance: (P) Min assist Assistive Device Assistive Device: (P) 2 Wheeled walker Ambulation Distance: Ambulation Distance (Feet): (P) 265ft Pattern: WBC (x10'3/uL) Date Value 12/05/2018 5.0 HGB (G/DL) Date Value 12/05/2018 13.9 PLT (x10'3/uL) Date Value 12/05/2018 241 INR (no units) Date Value 06/06/2017 1.2 Assessment & Plan: Mojgan Tabor is a 58-year-old male patient with Encephalopathy functional impairment for rehab Encephalopathy Mental status at base line . Mild balance deficits. PT, OT for gait training and ADL training, Nursing for bowel and bladder care. Speech therapy for swallow evaluation and cognitive evaluation. Patient Active Problem List Diagnosis ??? Seizure (CMS/HCC) on Keppra 2000 mg 2 times a day and Trileptal 450 mg 2 times a day, on Klonopin p.r.n. 0.25 mg for seizures. Stable now Also Depakote . Will call [facility] neurology to clarify Need DC few . ??? Osteoporosis ??? UTI (urinary tract infection) ??? Encephalopathy acute ??? Cerebrovascular accident (CVA) chronic with left-sided weakness. Continue Aspirin 81 daily, Atorvastatin 20 at night daily, PT, OTfor gait, balance, and ADL training Strength in left upper much better now ??? Hyperlipidemia ??? Hypertension on Amlodipine 5 mg daily. BP in 130's ??? Seizure (CMS/HCC) ??? Encephalopathy Neuropathic pain, Gabapentin 300 mg 3 times a day. We will try to wean him off from the Gabapentin. Supplements and Thiamine,Folic Acid daily. Docusate, and MiraLax for constipation, Cognitive deficits : Speech worning, need to cut down sz meds as his cognition is poor Team Conference: 12/07/18 Please refer to team conference note from today for details Case discussed with manager social work/ PT/OT/nursing and rec therapy. social worker assistant: lives alone Nursing: Bowel: continent Bladder: continent A & 0 x 3 PT: Bed mobility- mod Gait: walker - 250 feet - SBS/ min A OT: eating mod I and grooming: mod I dressing - min A / SBS toilet transfers: SBS/ min A ST: RT: pet therapy- Craft project: Recommendations: continue RENETTA JOHNSON MD * Lacie Gilbert, OTR - 12/07/2018 10:47 AM CDT 12/07/18 1000 Rehab FIMS Rehab FIMS OT FIMS Rehab episode of care Re-evaluation Functional Lamar Measure Score Eating FIMS 6 - Requires device or extra time Eating comment GOAL 6 MOD I Grooming FIMS 5 - Set-up Grooming Comment Goal 6, Mod I Bathing FIMS 4 - Patient does 75% or more (hands on/ min assist Bathing comment Goal 6, Mod I Dressing upper body FIMS 6 - Requires device, extra time Dressing upper body comment Goal 7, Independent Dressing lower body FIMS 5 - Supervision/Setup/cues Dressing lower body comment Goal 7, Independent Toileting FIMS 4 - Patient does 75% or more (hands on/min assist Toileting comment Goal 6, Mod I Transfers - toilet FIMS 5 - Requires set-up, supervision or cueing for transfer Transfer toilet comment Goal 6, Mod I Transfers tub/shower Wet transfer Transfers tub/shower FIMS 4 - Requires contact guard or steadying/min assist Transfer tub/shower comment Goal 6, Mod I * Marie Bae PTA - 12/07/2018 8:30 AM CDT 12/07/18 0800 Rehab FIMS Rehab FIMS PT FIMS Rehab episode of care Re-evaluation Functional Lamar Measure Score Transfers - bed/chair/wheelchair FIMS 5 - Supervision or cueing Transfers bed/chair/wheelchair comment with W.W Primary mode of locomotion Walk Walking FIMS 4 - Walks 150ft with steadying assist / contact guard Walking comment with W.W Wheelchair FIMS 1 - Propels <50ft or performs 25% of effort or requires 2 assist Wheelchair comment NA due to primary means of locomotion is walking Stairs FIMS 4 - Does 12-14 stairs with steadying / contact guard Stairs comment with Maggy rails Cosigned by Dionne Israel, PT at 12/07/2018 10:47 AM CDT * Vanessa Gilbert, GREY - 12/07/2018 7:44 AM CDT 12/07/18 0700 Therapy Visit Reason for admission Encephalopathy Ordering Provider MD Johnson Verified Two Patient Identifiers Yes Patient consents to therapy Yes Time Calculation Start Time 0655 Stop Time 0740 Time Calculation (min) 45 min Is this a Rehab Patient Yes Precautions General Precautions Bed Alarm;Chair Alarm;Fall Risk Instructed on Precautions Yes;Needs reinforcement and education Subjective Subjective PT AGREEABLE TO BREAKFAST CLUB THIS AM Pain Pain No Activity Tolerance Endurance Tolerates 45 min activity with rests Cognition Overall Cognitive Status Impaired ADL Eating/Feeding Assistance Modified independent (Device);Sitting in chair Eating/Feeding Deficit Increased time to complete Eating/Feeding Comment GENERAL DIET; EXTRA TIME REQUIRED Toileting Assistance Stand by Toileting Deficit Verbal cueing;Supervision/safety;Increased time to complete Toileting Comment 3IN1 COMMODE OVER STD TOILET; EXTRA TIME, STANDING WITH WW FOR CLOTHING MNGMNT Functional Transfers Sit to Stand SBA/supervision;Min assist Toilet Transfers Min assist (WW/SAFETY WITH BALANCE ) Functional Mobility FUNC. MOBIL. TO/FROM EOB IN ROOM TO REC THERAPY ROOM./WW/MIN A FOR BALANCE AND SAFETY; PT'S LEFT KNEE BUCKLED WHILE TURNING TO REC ROOM. PT SELF CORRECTED WITH MIN A Modalities Other (Comment) OT/PT IN AGREEMENT WITH DME/LRD UTILIZED Patient/Family Training Self Cares X Transfer Training X DME Education X Precautions X Other (Comment) ONE TO ONE EDU./GOOD UNDERSTANDING OF TASKS COMPLETED Recommendation OT Recommendation Inpatient Rehab Plan OT Treatment/Intervention Self-care training;Therapeutic exercises;Therapeutic activities;Neuromuscular re-education;Patient/family training;Continued evaluation;Functional activity;Safety Progress Progressing toward goals OT Frequency BID OT plan for next session ADLS/XFERS/STRENGTH End of Session Safety End of Session Safety Bed alarm set/activated;Call light within reach End of Session Comment PT IN BED WITH CALL LIGHT EATING BEHAVIOR SCALE FOR THE ELDERLY HAND DOMINANCE: RIGHT AROM: WFL GMC/FMC: INTACT DIET:GENERAL SWALLOWING PRECAUTIONS: LIQUID. CONSISTENCY: THIN FOOD CONSISTENCY: REGULAR 3 PARTS-SCOOPING TO MOUTH, CHEW, SWALLOW FIMS FOR EATING: MODIFIED DIET/EXTRA TIME/DENTURES=6 - EXTRA TIME REQUIRED FOR EATING FACTORS TO CONSIDERATION:: ABLE TO INITIATE EATING: INDEP ABLE TO MAINTAIN ATTENTION TO MEAL: INDEP ABLE TO LOCATE ALL FOOD:: INDEP APPROPRIATELY USE UTENSILS: INDEP ABLE TO BITE, CHEW, AND SWALLOW WITHOUT CHOKING: INDEP ABLE TO TERMINATE MEAL:INDEP POSITIONING OF THE PATIENT OR TRAY: IN FRONT OF PT SITTING W/C LEVEL AT TABLETOP RECEPTIVENESS TO ASSISTIVE DEVICES: PT IS RECEPTIVE; NO NEED FOR FOLLOW UP ASSESSMENT AT THIS TIME. * Renetta Johnson MD - 12/07/2018 7:17 AM CDT 12/07/18 0600 Rehab Medical POC Medical POC Encephalopathy Medical Prognosis Good Rehab social support Rehab social support 24hr supervision/assistance is not anticipated on discharge Rehab primary person coordinating Patient Rehab concerns (NONE VOICED) Rehab team review Rehab team review Yes Discipline specific treatment plan and interventions Case Management/Bilingual Interpreter Post discharge care Occupational therapy Evaluation of physical, cognitive, sensory or perceptual deficits;ADL retraining in self-care & home management, including compensatory training, safety procedures & assistive devices;Analyzing and modifying functional tasks;Instructions of modified functional tasks to patient, family and caregivers;Therapeutic functional activity to improve physical, cognitive and sensory or perceptual deficits Physical therapy Evaluation of mobility, locomotion, and neuromuscular deficits;Instruction of modified functional tasks to patient, family and caregivers;Graded exercise program development for strength and endurance, range of motion and flexibility;Neuromuscular reeducation of movement, balance and coordination;Neuromuscular reeducation to promote safety and improve function with locomotion;Therapeutic functional activity to promote safety and improve function with mobility/transfers Rehab Nursing Bladder management;Bowel management;Safety;Medication management;Reinforce therapy treatment;Pain management;Disease management Speech-language pathology Evaluation of language, cognition, swallowing and oral motor deficits;Cognitive retraining to improve attention, memory and problem solving;Improve auditory comprehension skills Underlying impairments Underlying impairments Balance;Coordination;Safety awareness;Activity tolerance;Strength Coping/motivation Coping/motivation Motivated Self-care Admission FIM / Predicted FIM goal or Functional Outcome Eating Admission FIM 4 - Patient does 75% or more (hands on/min. assist) Eating Predicted FIM Goal or Functional Outcome 5 - Supervision Grooming Admission FIM 4 - Patient does 75% or more (hands on/ min assist) Grooming Predicted FIM Goal or Functional Outcome 6 - Requires device, extra time Bathing Admission FIM 4 - Patient does 75% or more (hands on/ min assist Bathing Predicted FIM Goal or Functional Outcome 6 - Requires device, extra time, safety issues Dressing Upper Body Admission FIMS 4 - Patient does 75% or more (hands on/min assist) Dressing Upper Body Predicted FIM Goal or Functional Outcome 7 - Completely independent Dressing Lower Body Admission FIM 4 - Patient does 75% or more (assists with closure, hands on/min) Dressing Lower Body Predicted FIM Goal or Functional Outcome 7 - Completely independent Toileting Admission FIM 4 - Patient does 75% or more (hands on/min assist Toileting Predicted FIM Goal or Functional Outcome 6 - Specialized equipment, extra time, safety issues Sphincter Admission FIM / Predicted FIM Bladder Management Admission FIM 5 - Staff removes or empty. supervision Bowel Management Admission FIM 5 - Requires set-up, emptying, supervision Transfers Admission FIM/ Predicted FIM or Functional Outcome Transfers - Bed, Chair, Wheelchair Admission FIMS 4 - Patient does 75% or >min Transfers - Bed, Chair, Wheelchair Predicted FIM Goal or Functional Outcome 6 - Uses bedrails, slide board, grab bars or walker to assist with transfers, requires more time, safety issues Transfers - Toilet Admission FIM 4 - Requires contact guard or steadying/ min assist Transfers - Toilet Predicted FIM Goal or Functional Outcome 6 - Requires more time, safety issues Transfers - Tub/Shower Admission FIMS 4 - Requires contact guard or steadying/min assist Transfers - Tub/Shower Predicted FIM Goal or Functional Outcome 6 - Requires equipment (tub bench, shower chair) Locomotion Admission/Predicted FIM Primary Mode of Locomotion Walk Walk Admission FIM 4 - Walks 150ft with steadying assist / contact guard Walk Predicted FIM Goal or Functional Outcome 6 - Walks 150ft or more with assistive device Wheelchair Admission FIM 0 - No pushed in w/c by helper or does not use wheelchair Wheelchair Goal FIM Predicted or Functional Outcome 1 - Propels <50ft or performs 25% of effort or requires 2 assist Stairs Admission FIM 2 - Does 4-6 stairs & performing 25-49% of effort Stairs Predicted FIM Goal or Functional Outcome 6 - Does 12-14 stairs with assistive device, rails,timely manner, safety issues Comprehension Admission/Predicted FIM Comprehension Admission FIM 4 - Understands directions/conversations about only daily basic needs (self-care, eating pain) 75-90% Comprehension Predicted FIM Goal or Functional Outcome 6 - Understands complex/abstract with mild difficulty or increased time Expression Admission/Predicted FIM Expression Admission FIM 6 - Expresses complex/abstract ideas with mild difficulty Expression Predicted FIM Goal or Functional Outcome 7 - Expresses complex/abstract ideas clearly and fluently Social Cognition Admission/Predicted FIM Social Interaction Admission FIMS 5 - Supervision, cueing, coaxing to participate <10% of time Social Interaction Predicted FIM Goal or Functional Outcome 6 - Requires medication (antidepressant, anti-anxiety) Problem Solving Admission FIM 2 - Solves routine problems 25-49% of the time Problem Solving Predicted FIM Goal or Functional Outcome 5 - Solves routine problems >90% of time, may need cueing/supervision Memory Admission FIMS 2 - Recognizes, executes requests, remembers 25-49% Memory Predicted FIM Goal or Functional Outcome 6 - Mild difficulty remembering, needs additional time, may use aids Frequency & duration of therapy services Frequency & duration of therapy services OT/PT/RECEIVING WEIGHER services totaling at least 3 hrs/day, 5-7 days Estimated length of stay Estimated length of stay 5-7 days Anticipated discharge destination Anticipated discharge destination Home Intensity of therapy to be met by: Patient to be seen a minimum of 3 hours of therapy per day/ a minimum of 5 out of 7 days per week Specifically he will be require: Physical Therapy 1 hour a day 5 to 7 days a week, Occupational Therapy 1 hour a day 5 to 7 days a week and speech therapy 1 hour a day 5 to 7 days a week Medical Issues being managed closely that require the 24 hour availability of a physician: fall precautions/ prevention and medication management Disease management requiring lab monitoring, medication management and medical/ clinical interventions: neurological dysfunction due to encephalopathy with h/o CVA Brief Synthesis: This patient was mostly independent premorbidly. Due to a Encephalopathy, the patient now has deficits that warrant inpatient Acute Rehab. The patient will clearly benefit from intensive PT, OT (ST if needed). The patient also needs 24 hour Rehab Nursing care and Rehab Physician management for active medical issues including Encephalopathy and Patient Active Problem List Diagnosis ??? Seizure (CMS/HCC) ??? Osteoporosis ??? UTI (urinary tract infection) ??? Encephalopathy acute ??? Cerebrovascular accident (CVA) due to thrombosis of right posterior cerebral artery (CMS/HCC) ??? Hyperlipidemia ??? Hypertension ??? Seizure (CMS/HCC) ??? Encephalopathy . Please see above for current status with therapy. Based on the full physical examination of this patient and the review of the PAS and therapy evaluation, admission to the IRF is reasonable and necessary for the following reasons: 1- it provides safe and effective care to improve the patient's condition; 2- it is the most appropriate level of carefor the patient, providing the best intensity, frequency, and duration of therapeutic and rehabilitative nursing intervention to improve the patient's condition and function to return home safely, and; 3- it is the most appropriate setting medically to manage the patient's level of active co-morbidconditions by qualified personnel, at a level that meets, but does not exceed the patient's needs. Medical Prognosis: Good * Marie Bae, SEWING MACHINE OPERATOR - 12/06/2018 3:46 PM CDT 12/06/18 1400 Therapy Visit Ordering Provider MD Johnson Subjective Pt stated he has no headache at present Reason for admission Encephalopathy Relevant Comorbidities/ Personal Factors to PT CVA WITH L SIDE WEAKNESS, SEIZURES, FALLS, HTN Verified Two Patient Identifiers Yes Patient consents to therapy Yes Time Calculation Start Time 1400 Stop Time 1430 Time Calculation (min) 30 min Is this a Rehab Patient Yes Individual Start Time 1400 Individual Stop Time 1430 Individual Time Calculation (min) 30 min Total Therapy Minutes Provided 30 Precautions General Precautions Bed Alarm;Chair Alarm;Fall Risk Instructed on Precautions Yes;Needs reinforcement and education Pain Pain No Activity Tolerance Endurance Tolerates 30 min activity with rests Cognition Overall Cognitive Status Impaired Other (Comment) Pt with slow pace for all activities; requires cues for attn to task and initiationof task. Balance Other (Comment) In parallel bars; side stepping, retro walking x 3 lengths with SBS with verbal instruction for picking up L LE for safety and balance Exercises Other (Comment) Sci fit bike with level 2.5 for 10 minutes to improve B LE's and hip strength and endurance Patient/Family Training Transfer Training x Gait Training x Recommendation PT Recommendation Inpatient Rehab PT Equipment Recommended 2 Wheeled walker Plan PT Treatments/Interventions Gait Training;Therapeutic Exercises;Therapeutic Activities;Neuromuscular re-education;Patient/family training Progress Progressing toward goals PT Frequency Daily;BID;5 times/week PT plan for next session gait training; balance training End of Session Safety End of Session Safety Chair alarm set/activated;Call light within reach * Delilah Harris RECEIVING WEIGHER - 12/06/2018 3:10 PM CDT SPEECH THERAPY BEDSIDE SWALLOW EVALUATION 12/06/18 1357 Therapy Visit Subjective Pt walked to ST room to continue inital evaluation. Pt completed oral motor and swallow evaluation. Pt was pleasant and cooperative for evaluation, and states his swallowing is at baselineand has no concerns. The pt is verbally educated on the rationale for completion of swallow evaluation with pt's who have neurological deficits. The pt states verbal understanding and is agreeable tocompletion. Reason for Admission Encephalopothy Comorbidities Relevant for RECEIVING WEIGHER HTN, CVA, Seizure Disorder, Hyperlipidemia Time Calculation Start Time 1330 Stop Time 1350 Time Calculation (min) 20 min Pain Pain Patient does not demonstrate pain behaviors Swallowing Therapeutic solid trials Regular;Pureed (Dysphagia Level 1) Therapeutic liquid trials Thin Oral phase during therapeutic trials WFL Oral phase signs/symptoms Other (Comment) (mild labial asymmetry of left side) Pharyngeal phase during therapeutic trials WFL Symptomatic for aspiration/penetration No Pharyngeal exercise program comment The pt completes all trials with no clinical s/s of penetration/aspiration with any trial. All aspects of the pharyngeal swallow are WFL. Oral motor therapy/exercises comment Oral motor evaluation completed with pt displaying mild Lt labial/facial asymmetry. Strength is WFL. Swallowing impressions/assessment Overall severity = WFL Plan RECEIVING WEIGHER Plan for Next Session Evaluation is complete. ST to initiate goals next session. * Lacie Gilbert OTR - 12/06/2018 2:46 PM CDT 12/06/18 1300 Therapy Visit Reason for admission Encephalopathy Comorbidities Relevant to OT Seizures, HZTN, HLD, CVA with L side deficits, Falls Previous Occupational Therapy Inpatient Therapy Ordering Provider MD Johnson Verified Two Patient Identifiers Yes Patient consents to therapy Yes Time Calculation Is this a Rehab Patient Yes Individual Start Time 1300 Individual Stop Time 1330 Individual Time Calculation (min) 30 min Total Therapy Minutes Provided 30 Precautions General Precautions Bed Alarm;Chair Alarm;Fall Risk Instructed on Precautions Yes;Needs reinforcement and education Subjective Subjective AGREEABLE TO PARTICIPATE Pain Pain No Activity Tolerance Endurance Tolerates 30 min activity with rests Cognition Overall Cognitive Status Impaired Arousal/Alertness Delayed responses to stimuli Attention Span Attends with cues to redirect Following Commands Follows one step commands consistently Safety Judgment Decreased awareness of need for safety Awareness of Errors Assistance required to identify errors made Deficits Decreased awareness of deficits Problem Solving Assistance required to generate solutions Motor Planning Cues to use objects appropriately Initiation Cues to initiate tasks ADL Toileting Assistance Stand by Toileting Deficit Verbal cueing IADL IADL Comments PT COMPLETED THE TASK WITH PLACING A SHIRT ON TOWER TECHNICIAN/BUTTTONING/PLACING IN THE CLOSETWITH MIN A/MIN DIFFICULTIES Functional Transfers Sit to Stand SBA/supervision;Min assist (WW) Bed to Chair Min assist (WW) Toilet Transfers Min assist (WW 3IN1 OVER THE TOILET) Functional Mobility PT COMPLETED FUNCTIONAL MOBILITY SKILLS WITH WW WITH MIN A >150' Balance Other (Comment) ITEM RETRIEVAL WITH WW/LATHE SET UP OPERATOR WITH SBS/MIN A NO LOB NOTED Patient/Family Training Self Cares X Transfer Training X Other (Comment) 1:1, FAIR INSIGHT TO THE TASKS COMPLETED/COOPERATIVE/NOTED COG DEFICITS Recommendation OT Recommendation Inpatient Rehab OT Equipment Recommended To Be Determined Plan OT Treatment/Intervention Self-care training;Therapeutic exercises;Therapeutic activities;Neuromuscular re-education;Patient/family training;Continued evaluation;Functional activity;Safety Progress Progressing toward goals OT Frequency BID End of Session Safety End of Session Safety (IN THE THERAPY GYM/HANDED TO PT) * ALEJANDRA Salcido - 12/06/2018 12:05 PM CDT 12/06/18 0900 Therapy Visit Reason for admission Encephalopathy Comorbidities Relevant to OT Seizures, HZTN, HLD, CVA with L side deficits, Falls Previous Occupational Therapy Inpatient Therapy Ordering Provider MD Johnson Verified Two Patient Identifiers Yes Patient consents to therapy Yes Time Calculation Is this a Rehab Patient Yes Individual Start Time 0900 Individual Stop Time 1000 Individual Time Calculation (min) 60 min Total Therapy Minutes Provided 60 Precautions General Precautions Bed Alarm;Chair Alarm;Fall Risk Instructed on Precautions Yes;Needs reinforcement and education Subjective Subjective AGREEABLE TO PARTICIPATE Pain Pain No Cognition Overall Cognitive Status Impaired Arousal/Alertness Delayed responses to stimuli Attention Span Attends with cues to redirect Orientation Level Oriented to place;Oriented to time;Oriented to person Following Commands Follows one step commands consistently Safety Judgment Decreased awareness of need for safety Awareness of Errors Assistance required to identify errors made Deficits Decreased awareness of deficits Problem Solving Assistance required to generate solutions Motor Planning Cues to use objects appropriately Perseveration Not present Initiation Cues to initiate tasks Other (Comment) SBT= MODERATE DEFICITS, GDS 06/13 NO DEPRESSION Functional Transfers Sit to Stand SBA/supervision;Min assist Bed to Chair Min assist Car Transfers Min assist (WW) Other (Comment) SQUAT PIVOT TRANSFER WITH LINNEA FROM THE W/C-->RECLINER Patient/Family Training Self Cares X Transfer Training X Other (Comment) 1:1, FAIR INSIGHT TO THE TASKS COMPLETED, NOTED COG DEFICITS Recommendation OT Recommendation Inpatient Rehab OT Equipment Recommended To Be Determined Plan OT Treatment/Intervention Self-care training;Therapeutic exercises;Therapeutic activities;Neuromuscular re-education;Patient/family training;Continued evaluation;Functional activity;Safety Progress Progressing toward goals OT Frequency BID End of Session Safety End of Session Safety Chair alarm set/activated;Call light within reach * Delilah Harris, RECEIVING WEIGHER - 12/06/2018 11:51 AM CDT 12/06/18 1100 Therapy Visit Subjective The pt is alert, sitting up in his recliner, agreeable to in-room session. Education verbally completed with the pt describing completion of cognitive evaluation and goals to improve safety for transition back to home environment. The pt voices concern with making sure meds are taken correctly and plan in place at d/c to ensure this process. RECEIVING WEIGHER expressed this will be shared with the team on the pt's behalf at team meeting. Understanding is verbally stated on topics of increasing safety for return home and establishing medicine management plan at d/c. Reason for Admission Encephalopothy Comorbidities Relevant for RECEIVING WEIGHER HTN, CVA, Seizure Disorder, Hyperlipidemia Time Calculation Start Time 1100 Stop Time 1150 Time Calculation (min) 50 min Pain Pain No Reading Comprehension Scanning 100% Reading comprehension impressions/assessment Overall Severity = Mild-Moderate Written Expression Words Moderate (cognitive aspect) Sentences Moderate (cognitive aspect) Signature WFL Address Moderate (decreased organization, not fully complete) Written expression impressions/assessment Overall Severity = Moderate (unable to understand directions despite various ways of explaining) Cognition Convergent thinking 58% Divergent thinking [place] naming = 9 items/minute; Abstract naming = 0 items/minute Numerical skills impressions/assessment Deferred (pt's sister manages) Cognition impressions/assessment Overall Severity = Moderate Plan RECEIVING WEIGHER Plan for Next Session Complete oral motor and swallow evaluations. * Renetta Johnson MD - 12/06/2018 11:06 AM CDT Mojgan Tabor is a 58-year-old male patient. working with therapy in gym this AM.No acute events, no chest pain , SOB, dizziness Note: Patient Active Problem List Diagnosis ??? Seizure (CMS/HCC) ??? Osteoporosis ??? UTI (urinary tract infection) ??? Encephalopathy acute ??? Cerebrovascular accident (CVA) due to thrombosis of right posterior cerebral artery (CMS/HCC) ??? Hyperlipidemia ??? Hypertension ??? Seizure (CMS/HCC) ??? Encephalopathy Past Medical History: Diagnosis Date ??? HLD (hyperlipidemia) ??? Hypertension ??? Seizures (CMS/HCC) ??? Seizures (CMS/HCC) ??? Stroke (CMS/HCC) lt side weakness Current Facility-Administered Medications: ??? acetaminophen (TYLENOL) tablet 650 mg, 650 mg, Oral, Q4H PRN, 650 mg at 12/06/18812 OR acetaminophen (TYLENOL) suppository 650 mg, 650 mg, Rectal, Q4H PRN OR acetaminophen (TYLENOL) 160MG/5ML solution 650 mg, 650 mg, Oral, Q4H PRN, Renetta Johnson MD ??? amlodipine (NORVASC) tablet 5 mg, 5 mg, Oral, Daily, Renetta Johnson MD, 5 mg at 12/06/18812 ??? aspirin chewable tablet 81 mg, 81 mg, Oral, Daily, Renetta Johnson MD, 81 mg at 12/06/18811 ??? atorvastatin (LIPITOR) tablet 20 mg, 20 mg, Oral, Daily, Renetta Johnson MD, 20 mg at 12/06/18812 ??? bisacodyl EC (DULCOLAX) tablet 10 mg, 10 mg, Oral, Daily PRN, Renetta Johnson MD, 10 mg at 12/05/181836 ??? clonazePAM (KLONOPIN) tablet 0.25 mg, 0.25 mg, Oral, BID PRN, Renetta Johnson MD ??? divalproex EC (DEPAKOTE) delayed release tablet 500 mg, 500 mg, Oral, BID, Renetta Johnson MD, 500 mg at 12/06/18811 ??? docusate sodium (COLACE) capsule 100 mg, 100 mg, Oral, BID, Renetta Johnson MD, 100 mg at 12/06/18811 ??? folic acid (FOLVITE) tablet 1 mg, 1 mg, Oral, Daily, Renetta Johnson MD, 1 mg at 12/06/18811 ??? gabapentin (NEURONTIN) capsule 300 mg, 300 mg, Oral, TID, Renetta Johnson MD, 300 mg at 12/06/18811 ??? heparin (porcine) injection 5,000 Units, 5,000 Units, Subcutaneous, 2 times per day, 5,000 Units at 12/06/18812 AND [COMPLETED] Moderate Risk for VTE, , , Once, Renetta Johnson MD ??? levETIRAcetam (KEPPRA) tablet 2,000 mg, 2,000 mg, Oral, BID, Renetta Johnson MD, 2,000 mg at 12/06/18901 ??? OXcarbazepine (TRILEPTAL) tablet 450 mg, 450 mg, Oral, BID, Renetta Johnson MD, 450 mg at 12/06/18811 ??? polyethylene glycol (GLYCOLAX) packet 1 packet, 1 packet, Oral, Daily, Renetta Johnson MD, 1 packet at 12/06/18810 ??? tamsulosin (FLOMAX) capsule 0.4 mg, 0.4 mg, Oral, Daily, Renetta Johnson MD, 0.4 mg at 812 ??? vitamin B-1 (THIAMINE) tablet 100 mg, 100 mg, Oral, Daily, Renetta Johnson MD, 100 mg at 12/06/18 0812 Review of Systems Constitutional: Negative for fever. Cardiovascular: Negative for chest pain. Gastrointestinal: Negative for nausea and vomiting. Musculoskeletal: Negative for joint pain and myalgias. Neurological: Positive for focal weakness and weakness. Negative for dizziness. Psychiatric/Behavioral: The patient is nervous/anxious. Physical Exam Vitals: 12/06/18 0747 BP: 121/67 Pulse: 68 Resp: 16 Temp: 98.2 ??F (36.8 ??C) SpO2: 98% Physical Exam Constitutional: He is oriented to person, place, and time. No distress. HENT: Head: Atraumatic. Cardiovascular: Normal rate. Pulmonary/Chest: No respiratory distress. Abdominal: Soft. There is no tenderness. Musculoskeletal: He exhibits edema. Neurological: He is alert and oriented to person, place, and time. Coordination abnormal. Skin: Skin is dry. Psychiatric: His mood appears anxious. Nursing note and vitals reviewed. Neurologic Exam Mental Status Oriented to person, place, and time. Functional Status Sit to Stand: SBA/supervision, Min assist Stair Management Assistance: Min assist Rolling: SBA/supervision Shower Transfers : (P) Min assist Gait: Gait Assistance: Gait Assistance: Min assist Assistive Device Assistive Device: 2 Wheeled walker Ambulation Distance: Ambulation Distance (Feet): 250 feet Pattern: Patient Active Problem List WBC (x10'3/uL) Date Value 12/05/2018 5.0 HGB (G/DL) Date Value 12/05/2018 13.9 PLT (x10'3/uL) Date Value 12/05/2018 241 Patient Active Problem List INR (no units) Date Value 06/06/2017 1.2 Assessment & Plan: Mojgan Tabor is a 58-year-old male patient with Encephalopathy functional impairment for rehab Encephalopathy Mental status at base line . Mild balance deficits. PT, OT for gait training and ADL training, Nursing for bowel and bladder care. Speech therapy for swallow evaluation and cognitive evaluation. Patient Active Problem List Diagnosis ??? Seizure (CMS/HCC) on Keppra 2000 mg 2 times a day and Trileptal 450 mg 2 times a day, on Klonopin p.r.n. 0.25 mg for seizures. Stable now ??? Osteoporosis ??? UTI (urinary tract infection) ??? Encephalopathy acute ??? Cerebrovascular accident (CVA) chronic with left-sided weakness. Continue Aspirin 81 daily, Atorvastatin 20 at night daily, PT, OTfor gait, balance, and ADL training Strength in left upper much better now ??? Hyperlipidemia ??? Hypertension on Amlodipine 5 mg daily. BP in 120's ??? Seizure (CMS/HCC) ??? Encephalopathy Neuropathic pain, Gabapentin 300 mg 3 times a day. We will try to wean him off from the Gabapentin. Supplements and Thiamine,Folic Acid daily. Docusate, and MiraLax for constipation, RENETTA JOHNSON MD * Marie Kathia, SEWING MACHINE OPERATOR - 12/06/2018 10:49 AM CDT 12/06/18 0800 Therapy Visit Ordering Provider MD Johnson Subjective Pt stated he has no pain Reason for admission Encephalopathy Relevant Comorbidities/ Personal Factors to PT CVA WITH L SIDE WEAKNESS, SEIZURES, FALLS, HTN Verified Two Patient Identifiers Yes Patient consents to therapy Yes Time Calculation Start Time 0800 Stop Time 0900 Time Calculation (min) 60 min Is this a Rehab Patient Yes Individual Start Time 0800 Individual Stop Time 0900 Individual Time Calculation (min) 60 min Total Therapy Minutes Provided 60 Precautions General Precautions Bed Alarm;Chair Alarm;Fall Risk Instructed on Precautions Yes;Needs reinforcement and education Pain Pain No Activity Tolerance Endurance Tolerates 60 min activity with rests Cognition Overall Cognitive Status Impaired Arousal/Alertness Delayed responses to stimuli Attention Span Attends with cues to redirect Orientation Level Oriented to place;Oriented to time;Oriented to person Following Commands Follows one step commands consistently Safety Judgment Decreased awareness of need for safety Awareness of Errors Assistance required to identify errors made Deficits Decreased awareness of deficits Problem Solving Assistance required to generate solutions Motor Planning Cues to use objects appropriately Perseveration Not present Initiation Cues to initiate tasks Other (Comment) Pt with very slow pace for all activities; requires cues for attn to task and initiation of task. Bed Mobility Supine to Sit SBA/supervision and sit to supine with SBS and rolling with mod I Other (Comment) Pt requested to perform shaving and brushing teeth with I and pt instructed in upper body dressing with SBS and lower body dressing, donning socks and shoes with I TRANSFERS Stand Pivot Transfers Min assist Sit to Stand SBA/supervision;Min assist Other (Comment) Pt demonstrated decreased safety awareness with all activities with very slow pace and Pt demonstrated moderate flexed trunk with transfer from bed to w/c with verbal instruction for safe use of the walker Gait Gait Assistance Min assist Assistive Device 2 Wheeled walker Ambulation Distance (Feet) 250 feet Other (Comment) Pt demonstrated moderate leaning forward posture with W.W with min assist for safety and balance and pt required verbal instruction for upright posture and staying closer to the walker for safety Stairs Stair Management Assistance Min assist Stair Management Technique Two rails;Step to pattern Number of Stairs 12 Other (Comment) Pt required moderate verbal instruction for correct technique and sequences for safety and balance due to pt leaning backward as ascending or descending stairs for fall risk and ramp;18% grade/4 feet in length and curb 2 4 inch steps with W.W with min assist with verbal instructionfor correct technique and sequences for safety and balance. Patient/Family Training Bed Mobility x Transfer Training x Gait Training x Precautions Recommendation PT Recommendation Inpatient Rehab PT Equipment Recommended 2 Wheeled walker Plan PT Treatments/Interventions Gait Training;Therapeutic Exercises;Therapeutic Activities;Neuromuscular re-education;Patient/family training Progress Progressing toward goals PT Frequency Daily;BID;5 times/week PT plan for next session gait training; balance training End of Session Safety End of Session Safety Chair alarm set/activated;Call light within reach See above for functional and mobility assessment Pt has progressed with functional activity with dynamic balance, however pt required further skilled therapy to improve functional activity and decrease fall risk due to L side of body weakness and w/c propulsion did not occur due to primary means of locomotion is walking and pt has met 0/5 STG andF.O did not occur at this date. Cosigned by Dionne Irsael, PT at 12/07/2018 10:48 AM CDT * Svetlana Byron Charles, PT - 12/05/2018 4:02 PM CDT 12/05/18 1500 Therapy Visit Ordering Provider Alex Ruffin Pt handed off from with sister present observing session. Agrees to car transfer. Reason for admission Encephalopathy Relevant Comorbidities/ Personal Factors to PT CVA WITH L SIDE WEAKNESS, SEIZURES, FALLS, HTN Verified Two Patient Identifiers Yes Patient consents to therapy Yes Time Calculation Is this a Rehab Patient Yes Individual Start Time 1400 Individual Stop Time 1430 Individual Time Calculation (min) 30 min Total Therapy Minutes Provided 30 Precautions General Precautions Bed Alarm;Chair Alarm;Fall Risk Instructed on Precautions Yes;Needs reinforcement and education Pain Pain No Activity Tolerance Endurance Tolerates 30 min activity with rests Activity Tolerance Comments Fair tolerance; requires occasional rest breaks. Cognition Overall Cognitive Status Impaired Other (Comment) Pt with slow pace for all activities; requires cues for attn to task and initiationof task. TRANSFERS Sit to Stand Min assist (to WW) Car Transfers Mod assist (with WW) Other (Comment) Pt requires cues for correct placement of UEs when standing and sitting, along withscooting to edge of chair before standing. Pt completes car transfer with Mod A (increased cues forsafety and correct use of walker). Gait Gait Assistance Min assist Assistive Device 2 Wheeled walker Ambulation Distance (Feet) 75ft, 125ft Other (Comment) Pt ambulates with shuffling steps especially L LE, along with decreased step lengthand forward flexion. Following tapping activity, pt is able to ambulate with improved heel contact and LE clearance. Pt requires cues for upright posture and able to demonstrate occasionally. Interventions Other (Comment) To improve standing balance and promote heel contact during ambulation, pt performstapping to 4 inch step while using WW for UE support, 20x2 B. Pt requires cues for emphasis on heelcontact on step and for looking upright. He is able to perform with increased time (demos slow pacefor activity). Patient/Family Training Other (Comment) Pt sister present throughout session. Pt and sister receptive to tasks performed. Pt demos decreased insight into deficits however pts sister seems to be more aware of deficits and what progress can be made with therapy in this setting. Recommendation PT Recommendation Inpatient Rehab PT Equipment Recommended 2 Wheeled walker Plan PT Treatments/Interventions Gait Training;Therapeutic Exercises;Therapeutic Activities;Neuromuscular re-education;Patient/family training Progress Progressing toward goals PT Frequency Daily;BID;5 times/week PT plan for next session gait training; balance training End of Session Safety End of Session Safety Chair alarm set/activated;Call light within reach;Family/friend present with patient * Lacie Gilbert, OTR - 12/05/2018 2:44 PM CDT 12/05/18 1300 Therapy Visit Reason for admission Encephalopathy Comorbidities Relevant to OT Seizures, HZTN, HLD, CVA with L side deficits, Falls Previous Occupational Therapy Inpatient Therapy Ordering Provider Alex Verified Two Patient Identifiers Yes Patient consents to therapy Yes Time Calculation Is this a Rehab Patient Yes Individual Start Time 1300 Individual Stop Time 1330 Individual Time Calculation (min) 30 min Total Therapy Minutes Provided 30 Precautions General Precautions Bed Alarm;Chair Alarm;Fall Risk Instructed on Precautions Yes;Needs reinforcement and education Subjective Subjective Pt sitting in chair in room visiting with siblings. Pt agreeable to therapy. Pain Pain No Activity Tolerance Endurance Tolerates 30 min activity with rests Cognition Overall Cognitive Status Impaired Arousal/Alertness Delayed responses to stimuli Attention Span Attends with cues to redirect Following Commands Follows one step commands with repetition Safety Judgment Decreased awareness of need for safety Awareness of Errors Assistance required to identify errors made Deficits Decreased awareness of deficits Problem Solving Assistance required to generate solutions Motor Planning Cues to use objects appropriately Perseveration Not present Initiation Cues to initiate tasks Other (Comment) (Completed neuro assessments; see eval for results) Functional Transfers Sit to Stand: MIN A COMPLETED FUNCTIONAL TRANSFER WITH WW FROM RECLINER--> CHAIR WITH SBS/MIN A FUNCTIONAL MOBILITY FROM THE ROOM WW >150 WITH SBS/MIN A Patient/Family Training PT'S SISTER OBSERVED THERAPY IN THE GYM Self Cares X Transfer Training X DME Education X Precautions X Other (Comment) 1:1, receptive to tasks presented to him Recommendation OT Recommendation Inpatient Rehab OT Equipment Recommended To Be Determined Plan OT Treatment/Intervention Continued evaluation Progress Progressing toward goals OT Frequency BID End of Session Safety End of Session Safety (Handed off to RECEIVING WEIGHER in RECEIVING WEIGHER room) * JOSIAS Villanueva - 12/05/2018 2:15 PM CDT 12/05/18 1355 Therapy Visit Subjective The pt ambulates to from OT. The pt's sister is present for the evaluation. The pt expresses no concerns with speech, swallow, or cognition. The pt's sister confirms that any initial deficits have subsided. Reason for Admission Encephalopothy Comorbidities Relevant for RECEIVING WEIGHER HTN, CVA, Seizure Disorder, Hyperlipidemia Time Calculation Start Time 1330 Stop Time 1400 Time Calculation (min) 30 min Pain Pain Yes Pain score 3 Pain Location back/legs Interventions tolerable, no intervention required Receptive Language Yes/no questions Complex yes/no = 60% Following commands WFL Other receptive language Paragraph level = 62% Receptive language impressions/assessment Overall Severity = Mild Reading Comprehension Words 90% Sentences 100% Paragraphs 100% Functional information 25% Reading comprehension impressions/assessment Mild-Moderate as assessed thus far Expressive Language Other expressive language Word finding = 80% Expressive language impressions/assessment Overall Severity = WFL Motor Speech Dysarthria No dysarthria present Plan RECEIVING WEIGHER Plan for Next Session Complete visual scanning assessment, cognitive tasks, G/E, N/P (as appropriate), and OM/swallow assessments. * Lacie Gilbert, OTR - 12/05/2018 11:32 AM CDT 12/05/18 0945 Rehab FIMS Rehab FIMS OT FIMS Rehab episode of care Initial Evaluation Functional Lamar Measure Score Eating FIMS 4 - Patient does 75% or more (hands on/min. assist) Eating comment Goal 6, SBS Grooming FIMS 4 - Patient does 75% or more (hands on/ min assist) Grooming Comment Goal 6, Mod I Bathing FIMS 4 - Patient does 75% or more (hands on/ min assist/LIVE SHOWER Bathing comment Goal 6, Mod I Dressing upper body FIMS 4 - Patient does 75% or more (hands on/min assist) Dressing upper body comment Goal 7, Independent Dressing lower body FIMS 4 - Patient does 75% or more (assists with closure, hands on/min)/STANDINGBALANCE Dressing lower body comment Goal 7, Independent Toileting FIMS 4 - Patient does 75% or more (hands on/min assist/STANDING BAL DURING CLOTHES MGNT Toileting comment Goal 6, Mod I Transfers - toilet FIMS 4 - Requires contact guard or steadying/ min assist 3IN 1 COMMODE OVER THE TOILET Transfer toilet comment Goal 6, Mod I Transfers tub/shower FIMS 4 - Requires contact guard or steadying/min assist/ETB/SHOWER STALL/GRAB BARS/HANDHELD SHOWER NOZZLE Transfer tub/shower comment Goal 6, Mod I * Dionne Israel, PT - 12/05/2018 11:22 AM CDT 12/05/18 1000 Therapy Visit Ordering Provider Alex Ruffin Pt sitting up in w/c in gym, handed off from OT. Pt with flat affect but agreeable to work with PT. Reason for admission Encephalopathy Relevant Comorbidities/ Personal Factors to PT CVA WITH L SIDE WEAKNESS, SEIZURES, FALLS, HTN Verified Two Patient Identifiers Yes Patient consents to therapy Yes Precautions General Precautions Bed Alarm;Chair Alarm;Fall Risk Instructed on Precautions Yes;Needs reinforcement and education Home Living Type of Home Apartment Home Layout One level Home Accessibility 0 Steps to enter Home Equipment 4 Wheeled walker Prior Function Level of Lamar Independent with ADLs;Independent with functional transfers;Independent with ambulation;Independent with homemaking with ambulation Device used at baseline 4 Wheeled walker Baseline Ambulation Distance/Assistance Pt reports being mod I for ambulation within home and community using a rollator walker. Fall History Yes Reason for fall per pt: seizures and legs giving out How many falls in the past year? 3 Lives With Alone Receives Help From Family ADL Assistance Independent Comments Pt reports being mod I with all functional mobility using a rollator walker. Pt is a questionable historian due to current cognitive status. Pain Pain No Activity Tolerance Endurance Tolerates 60 min activity with rests Activity Tolerance Comments Fair/good activity tolerance. Pt able to full participate in 60 minutesof activity with few rest breaks. Cognition Overall Cognitive Status Impaired Arousal/Alertness Delayed responses to stimuli Attention Span Attends with cues to redirect Orientation Level Oriented to place;Oriented to time;Oriented to person Following Commands Follows one step commands consistently Safety Judgment Decreased awareness of need for safety Awareness of Errors Assistance required to identify errors made Deficits Decreased awareness of deficits Problem Solving Assistance required to generate solutions Motor Planning Cues to use objects appropriately Perseveration Not present Initiation Cues to initiate tasks RLE Assessment RLE Comment 5/5 throughout LLE Assessment LLE Comment 5/5 throughout Bed Mobility Rolling SBA/supervision Supine to Sit SBA/supervision Sit to Supine SBA/supervision Other (Comment) Pt demo's ability to transition to/from supine to/from sitting edge of bed with SBSfor safety. TRANSFERS Stand Pivot Transfers Min assist Sit to Stand Min assist Bed to Chair Min assist Other (Comment) Pt requires min A for lift assist and steadying throughout. Gait Gait Assistance Min assist Assistive Device 2 Wheeled walker Ambulation Distance (Feet) 150 ft, 150 ft Other (Comment) Pt required min A for steadying throughout gait. Pt demo's excessive forward flexion throughout gait, decreased foot clearance on LLE and slow gait speed. Stairs Stair Management Assistance Min assist Stair Management Technique Two rails;Step to pattern;Forward Number of Stairs 4 Other (Comment) Pt required min A for steadying during stair assessment. Pt ascends/descends steps with a [id number] slowly. Balance Balance Test TINETTI: 05/26 HIGH FALL RISK Exercises Other (Comment) SciFit L4 x 10 minutes for cardiovascular endurance testing/training. Pt able to complete activity slowly with cues to redirect to task. Pt easily distracted in busy environment. Pt performed task working at 2 METS throughout. Patient/Family Training Bed Mobility X Transfer Training X Gait Training X Stair Climbing X Precautions X Assessment Personal Factors/Comorbidities Impacting Care 3-4 personal factors/comorbidities Examination of Body Systems High (at least 4 Elements) Objectives of Body Systems Impaired bed mobility;Impaired transfers;Impaired ambulation;Impaired balance;Impaired stair negotiation;Decreased ADL status;Decreased endurance;Decreased cognition;Decreased safe judgement Clinical Presentation of Patient Evolving and changing characteristics Complexity Level of Evaluation Moderate Prognosis Good Recommendation PT Recommendation Inpatient Rehab PT Equipment Recommended 2 Wheeled walker Plan PT Treatments/Interventions Gait Training;Therapeutic Exercises;Therapeutic Activities;Neuromuscular re-education;Patient/family training Progress Progressing toward goals PT Frequency Daily;BID;5 times/week End of Session Safety End of Session Safety Chair alarm set/activated;Call light within reach;Transfer status education ASSESSMENT: The patient is being evaluated after a bout of acute encephalopathy. He presents with impaired balance, coordination, endurance and cognition, all impacting his functional mobility at this time. He would benefit from intensive inpatient rehab to address these deficits, maximize independence and facilitate discharge home to prior living environment. * Lacie Gilbert, OTR - 12/05/2018 11:18 AM CDT 12/05/18 0900 Therapy Visit Reason for admission Acute encephalopathy, weakness Comorbidities Relevant to OT Seizures, HZTN, HLD, CVA with L side deficits, Falls Previous Occupational Therapy Inpatient Therapy Ordering Provider Alex Verified Two Patient Identifiers Yes Patient consents to therapy Yes Time Calculation Is this a Rehab Patient Yes Individual Start Time 0900 Individual Stop Time 1005 Individual Time Calculation (min) 65 min Total Therapy Minutes Provided 65 Precautions General Precautions Bed Alarm;Chair Alarm;Fall Risk;Other(comment) Instructed on Precautions Yes;Needs reinforcement and education Other HX of seizures Subjective Subjective Pt sitting in bed and pleasant upon entering room. Pt states he wants to get stronger and learn to take his medications correctly in order to be safe at home. Pt agreed to work with therapy and receptive to all activities. Home Living Type of Home Apartment Home Layout One level Home Accessibility 1 Step or platform to enter Bathroom Shower/Tub Tub/shower unit Bathroom Toilet Standard Toilet Bathroom Equipment Grab bars in shower (grab bars around toilet) Bathroom Accessibility Accessible via walker Home Equipment 4 Wheeled walker Prior Function Level of Lamar Independent with ADLs Device used at baseline 4 Wheeled walker Lives With Alone Receives Help From (home care worker) ADL Assistance Independent Toileting Minimal Homemaking Assistance Needs assistance Homemaking Assistance Comments (Needs assistance from home careworker for IADL tasks.) Comments PT may be a questionable historian; reports hx of drug abuse and 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 Pain Pain No Activity Tolerance Endurance Tolerates 60 min activity with rests Cognition Overall Cognitive Status Impaired Arousal/Alertness Appropriate responses to stimuli Attention Span Attends with cues to redirect Orientation Level Oriented to place;Oriented to situation;Oriented to person;Disoriented to time Following Commands Follows one step commands with repetition Safety Judgment Decreased awareness of need for safety Awareness of Errors Assistance required to identify errors made Deficits Decreased awareness of deficits Problem Solving Assistance required to generate solutions Motor Planning Cues to use objects appropriately Perseveration Perseverates during ADLs Initiation R/L Discrimination Body Scheme Vfllyr-Hodm-Edldft Convergence Eye Tracking Irving's Test Clock Test Cues to initiate tasks Intact Intact Mod deficits indicating dysmetria Focus would not break 4 from nose Eye tracking intact 0/100% indicating no neglect Severe visuospatial and memory deficits Cognition Complex Affect (eager to work) Overall Extremity Assessment Upper Extremity Bilateral AROM WFL, strength on R normal, strength on left is 4/5 Hand Function Hand Dominance Right Gross Grasp Functional (Rice Cleaning Machine Tender R=73LBS, L=60LBS) Coordination Functional Hand Comment 9 Hole Peg (3Jaw R=14LBS,L=13; Lat R=18LBS, L=14; Tip R=13LBS, L=14 ) R=65sec; L=59sec; indicates DELAY PROCESSING VS FMC ISSUES Bed Mobility Rolling Min assist to right Supine to Sit Min assist to right Functional Transfers Sit to Stand Min assist Toilet Transfers Min assist Shower Transfers Min assist Car Transfers Not tested Functional Mobility Pt performed functional mobility from bed to bathroom with WW with min A and cues for safety.; pt required cues for grab bar and shower bench in shower for safety. Balance Sitting - Static Min Assist Sitting - Dynamic Min Assist Standing - Static Min Assist Standing - Dynamic Min Assist Assessment Occupational Profile and History Complexity Moderate (Expanded) Performance Skills Deficits Bathing/showering;Dressing;Functional mobility;Health management and maintenance;Meal preparation and cleaning Performance Deficit Level Moderate (3-5 deficits) Clinical Decision Making Moderate (min/mod modifications) Complexity Level of Evaluation Moderate Prognosis Ongoing OT assessment needed Patient/Family Training Self Cares X Transfer Training X DME Education X Precautions X Other (Comment) 1-1; pt receptive to all tasks in session and education for safety Recommendation OT Recommendation Inpatient Rehab OT Equipment Recommended To Be Determined Plan OT Treatment/Intervention Self-care training;Therapeutic exercises;Patient/family training;Functional activity;Safety;Therapeutic activities Progress Progressing toward goals OT Frequency BID OT plan for next session Continued eval, ADL, IADL End of Session Safety End of Session Safety (Pt handed over to PT in the gym) Objective Objective See FIMS and QIAS for results. * Dionne Israel, PT - 12/05/2018 11:10 AM CDT 12/05/18 1000 Rehab FIMS Rehab FIMS PT FIMS Rehab episode of care Initial Evaluation Functional Lamar Measure Score Transfers - bed/chair/wheelchair FIMS 4 - Patient does 75% or >min Transfers bed/chair/wheelchair comment GOAL- 6 MOD I Primary mode of locomotion Walk Walking FIMS 4 - Walks 150ft with steadying assist / contact guard Walking comment GOAL- 6 MOD I Wheelchair FIMS 0 - Not pushed in w/c by helper or does not use wheelchair Wheelchair comment GOAL- 1 Stairs FIMS 2 - Does 4-6 stairs & performing 25-49% of effort Stairs comment GOAL- 6 MOD I * Renetta Johnson MD - 12/05/2018 10:36 AM CDT Mojgan Tabor is a 58-year-old male patient.Started working with therapy , no headaches, nausea . Note: Patient Active Problem List Diagnosis ??? Seizure (CMS/HCC) ??? Osteoporosis ??? UTI (urinary tract infection) ??? Encephalopathy acute ??? Cerebrovascular accident (CVA) due to thrombosis of right posterior cerebral artery (CMS/HCC) ??? Hyperlipidemia ??? Hypertension ??? Seizure (CMS/HCC) ??? Encephalopathy Past Medical History: Diagnosis Date ??? HLD (hyperlipidemia) ??? Hypertension ??? Seizures (CMS/HCC) ??? Seizures (CMS/HCC) ??? Stroke (CMS/HCC) lt side weakness Current Facility-Administered Medications: ??? acetaminophen (TYLENOL) tablet 650 mg, 650 mg, Oral, Q4H PRN, 650 mg at 12/04/182017 OR acetaminophen (TYLENOL) suppository 650 mg, 650 mg, Rectal, Q4H PRN OR acetaminophen (TYLENOL) 160MG/5ML solution 650 mg, 650 mg, Oral, Q4H PRN, Renetta Johnson MD ??? amlodipine (NORVASC) tablet 5 mg, 5 mg, Oral, Daily, Renetta Johnson MD ??? aspirin chewable tablet 81 mg, 81 mg, Oral, Daily, Renetta Johnson MD ??? atorvastatin (LIPITOR) tablet 20 mg, 20 mg, Oral, Daily, Renetta Johnson MD ??? clonazePAM (KLONOPIN) tablet 0.25 mg, 0.25 mg, Oral, BID PRN, Renetta Johnson MD ??? divalproex EC (DEPAKOTE) delayed release tablet 500 mg, 500 mg, Oral, BID, Renetta Johnson MD, 500 mg at 12/04/182017 ??? docusate sodium (COLACE) capsule 100 mg, 100 mg, Oral, BID, Renetta Johnson MD, 100 mg at 12/04/182016 ??? folic acid (FOLVITE) tablet 1 mg, 1 mg, Oral, Daily, Renetta Johnson MD ??? gabapentin (NEURONTIN) capsule 300 mg, 300 mg, Oral, TID, Renetta Johnson MD, 300 mg at 12/04/182016 ??? heparin (porcine) injection 5,000 Units, 5,000 Units, Subcutaneous, 2 times per day, 5,000 Units at 12/04/182016 AND [COMPLETED] Moderate Risk for VTE, , , Once, Renetta Johnson MD ??? levETIRAcetam (KEPPRA) tablet 2,000 mg, 2,000 mg, Oral, BID, Renetta Johnson MD, 2,000 mg at 12/04/18 2017 ??? OXcarbazepine (TRILEPTAL) tablet 450 mg, 450 mg, Oral, BID, Renetta Johnson MD, 450 mg at 12/04/18 2018 ??? polyethylene glycol (GLYCOLAX) packet 1 packet, 1 packet, Oral, Daily, Renetta Johnson MD ??? tamsulosin (FLOMAX) capsule 0.4 mg, 0.4 mg, Oral, Daily, Renetta Johnson MD ??? vitamin B-1 (THIAMINE) tablet 100 mg, 100 mg, Oral, Daily, Renetta Johnson MD Review of Systems Constitutional: Positive for malaise/fatigue. Negative for fever. Cardiovascular: Negative for chest pain. Gastrointestinal: Negative for nausea and vomiting. Neurological: Positive for focal weakness and weakness. Negative for dizziness. Psychiatric/Behavioral: The patient is nervous/anxious. Physical Exam Vitals: 12/05/18 0731 BP: 122/66 Pulse: 69 Resp: 18 Temp: 97.9 ??F (36.6 ??C) SpO2: 100% Physical Exam Constitutional: He is oriented to person, place, and time. Cardiovascular: Normal rate. Abdominal: Soft. There is no tenderness. Neurological: He is alert and oriented to person, place, and time. Skin: Skin is dry. Psychiatric: His mood appears anxious. Nursing note and vitals reviewed. Neurologic Exam Mental Status Oriented to person, place, and time. Functional Status Sit to Stand: Min assist Stair Management Assistance: Min assist Rolling: SBA/supervision Gait: Gait Assistance: Gait Assistance: Min assist Assistive Device Assistive Device: 2 Wheeled walker Ambulation Distance: Ambulation Distance (Feet): 150 ft, 150 ft Pattern: Patient Active Problem List WBC (x10'3/uL) Date Value 12/05/2018 5.0 HGB (G/DL) Date Value 12/05/2018 13.9 PLT (x10'3/uL) Date Value 12/05/2018 241 Patient Active Problem List INR (no units) Date Value 06/06/2017 1.2 Assessment & Plan: Mojgan Tabor is a 58-year-old male patient with Encephalopathy functional impairment for rehab Encephalopathy Mental status possibly at base line . Mild balance deficits. OT working this AM. PT, OT for gait training and ADL training, Nursing for bowel and bladder care. Speech therapy for swallow evaluation and cognitive evaluation. Continue current medical management. Patient Active Problem List Diagnosis ??? Seizure (CMS/HCC) ??? Osteoporosis ??? UTI (urinary tract infection) ??? Encephalopathy acute ??? Cerebrovascular accident (CVA) due to thrombosis of right posterior cerebral artery (CMS/HCC) ??? Hyperlipidemia ??? Hypertension ??? Seizure (CMS/HCC) ??? Encephalopathy RENETTA JOHNSON MD * Dionne Israel, PT - 12/05/2018 10:22 AM CDT 12/05/18 1000 [place]etti Balance Section Sitting Balance 1 Rises from chair 0 Attempts to rise 1 Immediate standing balance (first 5 seconds) 1 Standing balance 1 Nudged 1 Eyes Closed 0 Turning 360 degrees Continuous 0 Turning 360 degrees Steady 0 Sitting down 1 Balance Score /16 6 Tinetti Gait Section Initiation of Gait 0 Right step length and height 1 Left step length & height 1 Righ foot clearance 1 Left foot clearance 0 Step Symmetry 0 Step continuity 1 Path 1 Trunk 1 Walking time 0 Gait Score /12 6 Total Score = Balance + Gait out of 28 possible 12 * Abran Leigh, RECEIVING WEIGHER - 12/05/2018 9:44 AM CDT 12/05/18 0700 Therapy Visit RECEIVING WEIGHER Received on 12/05/18 Subjective Pt is lying in bed upon ST arrival watching TV. Pt is pleasant and agreeable to evaluation at bedside this AM. Reason for Admission Encephalopothy Comorbidities Relevant for RECEIVING WEIGHER HTN, CVA, Seizure Disorder, Hyperlipidemia Pain Pain No Receptive Language Yes/no questions Complex Y/N = 73% Receptive language impressions/assessment Mild Deficit as assessed thus far Cognition Orientation impressions/assessment 93% = WFL Long-term memory 100% = WFL Short-term memory Imm. Memory = 80% = WFL Working memory Recent Memory = 67% Memory impressions/assessment Overall Deficit = MILD Verbal problem solving impressions/assessment 58% = MOD Deficit Verbal reasoning impressions/assessment 67% = MOD Deficit Cognition impressions/assessment Mild-Mod Deficit as assessed thus far Plan RECEIVING WEIGHER Plan for Next Session Continue evaluation. documented in this encounter H&P Notes * Renetta Johnson MD - 12/04/2018 3:22 PM CDT ADMISSION DIAGNOSES: Functional impairment secondary to multiple comorbidities with a recent acute encephalopathy with history of CVA with balance deficits now for rehabilitation. HISTORY OF PRESENT ILLNESS: This is a 58-year-old -[place] male with a history of hypertension, hyperlipidemia, CVA in the past with left-sided weakness who presented [facility] on 12/04. Patient also has a history of seizure disorder. The patient has some weakness of disorientation, which got worsened over a period of days. The patient had similar problems in the past, wasseen for hyponatremia, was given IV fluids and discharged home. The patient lives by self and now is unable to low back secondary to this altered mental status. The patient was progressively gotten better while he was in the acute care. UA was negative, hyponatremia at the time of admission that has gotten improved. As he still has some functional deficits with a known seizure disorder and CVA, we did start insurance authorization for inpatient rehabilitation. Prior to it patient has multiple hospital admissions. We did get approval, so patient was admitted to inpatient rehabilitation for further management of functional deficits. PAST MEDICAL HISTORY: Positive for seizures, CVA, hyperlipidemia, hypertension. FAMILY HISTORY: No history of neurological disorders in the family. SOCIAL HISTORY: The patient lives by self, but family lives in the area. REVIEW OF SYSTEMS: The patient complains of mild weakness to the left. No nausea, vomiting, or dizziness. No history of vomiting or dizziness. All other systems are reviewed and found to be negative except for those mentioned in history of present illness. FUNCTIONAL STATUS PREHOSPITALIZATION: Patient was independent by self at home/modified independent using a wheeled walker. CURRENT LEVEL OF FUNCTION: Sit to stand minimal assistance, toilet transfer minimal assistance, most of the transfers and mobility is minimal assistance. PHYSICAL EXAMINATION: Vital signs: Temperature 98, pulse 65, respiratory rate 18, blood pressure 113/59, pulse ox 100% on room air. HEENT: Oropharynx clear. Neck: Supple. Cardiovascular: Regular rate. Respiratory: Nonlabored breathing. Abdomen: No tenderness noted. Skin is dry and intact. Neurologic: Alert and oriented x3. Strength right upper is 4+, left upper is 4-, bilateral lower extremities 4+ throughout. Sensation is grossly intact. Psychiatric: Looks anxious. General appearance: Comfortably sitting in chair. No distress. ASSESSMENT AND PLAN: This is a 58-year-old male with history of CVA, hypertension, hyperlipidemia, seizure disorder, presented with acute encephalopathy, now with functional deficits for rehabilitation. This patient will be admitted to Inpatient Rehabilitation Facility with daily physician management including physical medicine and rehabilitation physician, rehabilitation specialty nursing, multidisciplinary therapy program with access to psychology, orthotics/prosthetics, internal medicine include: 1. Functional impairment/gait impairment. PT, OT for gait and nursing for bowel and bladder care. Speech therapy for cognition and speech. 2. Acute encephalopathy, possibly metabolic from hyponatremia, which is almost resolved now with probably he is at baseline. We will get a speech and language pathology for further management of his functional deficits. 3. CVA, chronic with left-sided weakness. Continue Aspirin 81 daily, Atorvastatin 20 at night daily, PT, OT for gait, balance, and ADL training. 4. Hypertension, on Amlodipine 5 mg daily. 5. Seizure disorder, on Keppra 2000 mg 2 times a day and Trileptal 450 mg 2 times a day, on Klonopin p.r.n. 0.25 mg for seizures. 6. Benign prostatic hypertrophy, Flomax 0.4 daily, Supplements and Thiamine, Docusate, and MiraLax for constipation, Folic Acid daily. 7. Neuropathic pain, Gabapentin 300 mg 3 times a day. We will try to wean him off from the Gabapentin. 8. Pain, on Tylenol p.r.n. REHABILITATION ISSUES: Decreased independence with ADLs, gait, and transfers and also cognitive deficits. GOALS: Improve his cognition, gait, transfers, and ADLs. ESTIMATED LENGTH OF STAY: 5 days. POST- ADMISSION PHYSICIAN EXAMINATION: STATEMENT OF MEDICAL NECESSITY: I have reviewed this patient's preadmission screening information. I have personally evaluated the patient. This patient is sufficiently stable to participate in the rehabilitation program. In my professional judgement and rehabilitation experience, this patient meets the medical necessity criteria, requires an inpatient stay to management his needs for nursing andmedical management, requires supervision by a rehabilitation physician at least three times per week and requires the interdisciplinary team approach on an intensive rehabilitation program 3 hours a day 5-7 days a week. Status Compared to Pre-Admission: There are no clinically significant differences between the patient's current status and the information described on the pre-admission screening document. Special Considerations: There are no safety or other practical considerations that would likely preclude immediate implementation of an intensive rehabilitation program (3 hours a day over 5 days per week) or substantially influence the plan of care. By signing this document, I acknowledge that I have personally performed a full physical examination on this patient within 24 hours of admission to this admission to this inpatient rehabilitation facility and have determined the patient to be able to tolerate the above course of treatment at an intensive level for a reasonable period of time. I will be completing a detailed individualized Plan of Care for this patient by day #4 of the patient's stay based upon the Preadmission Screen, the Post- Admission Evaluation, and the therapy evaluations. The patient needs PT, OT, and speech an hour each. #[id number] /[id number] documented in this encounter Consult Notes * Riky Guerrier RD - 12/08/2018 3:04 PM CDT A: Diet is regular. Ensure Enlive bid was being sent prior to transfer to 5th floor rehab but did not follow him. I added it today bid-strawberry. He did state he received some yesterday likely asking the staff. Intake 100% 6 of the 7 meals recorded. He is feeding himself at visit and has snacks onhis bedside table. High nutriton risk per low weight (77% of his core ibw) but eating well I will change to moderate nutrition risk. M/E: At f/u 12/15/18 goals of 80% average intake and accept at least one container of supplement. documented in this encounter Nursing Notes * Patricia Penn RN - 12/08/2018 10:51 AM CDT Left voice mail for Dr. Laohathai, neurologist, regarding reviewing patient's medications per Dr. Johnson's request. [facility] . Faxed medication list for review to * Anahi Jernigan RN - 12/04/2018 5:39 PM CDT New admission skin assessment completed. No open areas or pressure ulcers noted to bottom. Generalized dry, scaly, scabbed skin. documented in this encounter Miscellaneous Notes * Quality Indicator-Discharge - Dionne Israel, PT - 12/12/2018 12:55 PM CDT 12/12/18 1200 Mobility Roll Left & Right Discharge Performance 6 - Independent - Patient completes the activity by him/herself with no assistance from a helper Sit to lying Discharge Performance 6 - Independent - Patient completes the activity by him/herself with no assistance from a helper Lying to Sitting on the Side of Bed Discharge Performance 6 - Independent - Patient completes the activity by him/herself with no assistance from a helper Sit to Stand Discharge Performance 6 - Independent - Patient completes the activity by him/herself with no assistance from a helper Chair/Gbm-ir-Ajskz Transfer Discharge Performance 6 - Independent - Patient completes the activity by him/herself with no assistance from a helper Does the patient walk? 2 - Yes Walk 10 feet Discharge Performance 6 - Independent - Patient completes the activity by him/herself with no assistance from a helper Walks 50 feet with two turns Discharge Performance 6 - Independent - Patient completes the activityby him/herself with no assistance from a helper Walk 150 feet Discharge Perfromance 4 - Supervision or touching assistance - [place] provides VERBALCUES or TOUCHING/STEADYING/CONTACT GUARD assistance as patient completes activity. Assistance may be provided throughout the activity or intermittently Walking 10 feet on Uneven Surfaces Discharge Performance 4 - Supervision or touching assistance - [place] provides VERBAL CUES or TOUCHING/STEADYING/CONTACT GUARD assistance as patient completes activity. Assistance may be provided throughout the activity or intermittently 1 Step (curb) Discharge Performance 4 - Supervision or touching assistance - [place] provides VERBALCUES or TOUCHING/STEADYING/CONTACT GUARD assistance as patient completes activity. Assistance may be provided throughout the activity or intermittently 4 Steps Discharge Performance 4 - Supervision or touching assistance - [place] provides VERBAL CUES or TOUCHING/STEADYING/CONTACT GUARD assistance as patient completes activity. Assistance may be provided throughout the activity or intermittently 12 Steps Discharge Performance 4 - Supervision or touching assistance - [place] provides VERBAL CUESor TOUCHING/STEADYING/CONTACT GUARD assistance as patient completes activity. Assistance may be provided throughout the activity or intermittently Picking up object Discharge Performance 4 - Supervision or touching assistance - [place] provides VERBAL CUES or TOUCHING/STEADYING/CONTACT GUARD assistance as patient completes activity. Assistance may be provided throughout the activity or intermittently Does the patient use a wheelchair/scooter No Wheel 50 Feet with Two Turns Discharge Performance 9 - Not applicable Wheel 150 Feet Discharge Performance 9 - Not applicable * Quality Indicator-Discharge - ALEJANDRA Hook - 12/12/2018 11:56 AM CDT 12/12/18 1100 Self Care Eating Discharge Performance 6 - Independent - Patient completes the activity by him/herself with no assistance from a helper Oral Hygiene Discharge Performance 5 - Setup or clean up assistance- [place] SETS UP or CLEANS UP, patient completes activity. [place] assists only prior to or following the activity Toileting Hygiene Discharge Performance 5 - Setup or clean up assistance- [place] SETS UP or CLEANS UP, patient completes activity. [place] assists only prior to or following the activity Shower/bathe self Discharge performance 5 - Setup or clean up assistance- [place] SETS UP or CLEANS UP, patient completes activity. [place] assists only prior to or following the activity Upper body dressing Discharge Performance 6 - Independent - Patient completes the activity by him/herself with no assistance from a helper Lower body dressing Discharge Performance 5 - Setup or clean up assistance- [place] SETS UP or CLEANS UP, patient completes activity. [place] assists only prior to or following the activity Putting on/taking off footwear Discharge Performance 5 - Setup or clean up assistance- [place] SETS UP or CLEANS UP, patient completes activity. [place] assists only prior to or following the activity Mobility Toilet Transfer Discharge Performance 5 - Setup or cleanup assistance - [place] SETS UP or CLEANS UP- patient completes activity. [place] assists only prior to or following the activity Car Transfer Discharge Performance 5 - Setup or cleanup assistance - [place] SETS UP or CLEANS UP - patient completes activity. [place] assists only prior to or following the activity ALEJANDRA HOOK * Quality Indicator-Admission - Lacie Kike Gilbert, OTR - 12/05/2018 11:41 AM CDT 12/05/18 0900 Prior Functional Abilities & Goals: Everyday Activities Self Care 3 - Independent - Patient completed the activities by him/herself, with or without an assistive device, with no assistance from a helper Indoor Mobility (ambulation) 3 - Independent - Patient completed the activities by him/herself, with or without an assistive device, with no assistance from a helper Stairs 3 - Independent - Patient completed the activities by him/herself, with or without an assistive device, with no assistance from a helper Functional Cognition 3 - Independent - Patient completed the activities by him/herself, with or without an assistive device, with no assistance from a helper Prior Device Use Prior Device Use D - Walker Self Cares Eating Admission Performance 4 - Supervision or touching assistance - [place] provides VERBAL CUES or TOUCHING/STEADYING/CONTACT GUARD assistance as patient completes activity. Assistance may be provided throughout the activity or intermittently. Eating Discharge Goal 6 INDEP Oral Hygiene Admission Performance 4 - Supervision or touching assistance - [place] provides VERBAL CUES or TOUCHING/STEADYING/CONTACT GUARD assistance as patient completes activity. Assistance may beprovided throughout the activity or intermittently. Oral Hygiene Discharge Goal 6 INDEP Toileting Hygiene Admission Performance 4 - Supervision or touching assistance - [place] provides VERBAL CUES or TOUCHING/STEADYING/CONTACT GUARD assistance as patient completes activity. Assistance may be provided throughout the activity or intermittently. Toileting Hygiene Discharge Goal 6 - Independent - Patient completes the activity by him/herself with no assistance from a helper Shower/Bathe Self Admission Performance 4 - Supervision or touching assistance - [place] provides VERBAL CUES or TOUCHING/STEADYING/CONTACT GUARD assistance as patient completes activity. Assistance may be provided throughout the activity or intermittently. Shower/Bathe Self Discharge Goal 6 - Independent - Patient completes the activity by him/herself with no assistance from a helper Upper Body Dressing Admission Performance 4 - Supervision or touching assistance - [place] provides VERBAL CUES or TOUCHING/STEADYING/CONTACT GUARD assistance as patient completes activity. Assistancemay be provided throughout the activity or intermittently. Upper Body Dressing Discharge Goal 6 - Independent - Patient completes the activity by him/herself with no assistance from a helper Lower Body Dressing Admission Performance 4 - Supervision or touching assistance - [place] provides VERBAL CUES or TOUCHING/STEADYING/CONTACT GUARD assistance as patient completes activity. Assistancemay be provided throughout the activity or intermittently. Lower Body Dressing Discharge Goal 6 - Independent - Patient completes the activity by him/herself with no assistance from a helper Putting on/taking off footwear Admission Performance 4 - Supervision or touching assistance - [place] provides VERBAL CUES or TOUCHING/STEADYING/CONTACT GUARD assistance as patient completes activity.Assistance may be provided throughout the activity or intermittently. Putting on/taking off footwear Discharge Goal 6 - Independent - Patient completes the activity by him/herself with no assistance from a helper Mobility Toilet Transfer Admission Performance 4 - Supervision or touching assistance - [place] provides VERBAL CUES or TOUCHING/STEADYING/CONTACT GUARD assistance as patient completes activity. Assistance maybe provided throughout the activity or intermittently. Toilet Transfer Discharge Goal 6 - Independent - Patient completes the activity by him/herself withno assistance from a helper Car Transfer Admission Performance 4 - Supervision or touching assistance - [place] provides VERBAL CUES or TOUCHING/STEADYING/CONTACT GUARD assistance as patient completes activity. Assistance may beprovided throughout the activity or intermittently. Car Transfer Discharge Goal 6 - Independent - Patient completes the activity by him/herself with noassistance from a helper * Quality Indicator-Admission - Dionne Israel, PT - 12/05/2018 11:12 AM CDT 12/05/18 1000 Prior Functional Abilities & Goals: Everyday Activities Self Care 3 - Independent - Patient completed the activities by him/herself, with or without an assistive device, with no assistance from a helper Indoor Mobility (ambulation) 3 - Independent - Patient completed the activities by him/herself, with or without an assistive device, with no assistance from a helper Stairs 3 - Independent - Patient completed the activities by him/herself, with or without an assistive device, with no assistance from a helper Functional Cognition 3 - Independent - Patient completed the activities by him/herself, with or without an assistive device, with no assistance from a helper Prior Device Use Prior Device Use D - Walker Mobility Roll Left & Right Admission Performance 4 - Supervision or touching assistance - [place] provides VERBAL CUES or TOUCHING/STEADYING/CONTACT GUARD assistance as patient completes activity. Assistance may be provided throughout the activity or intermittently. Roll Left & Right Discharge Goal 6 - Independent - Patient completes the activity by him/herself with no assistance from a helper Sit to lying Admission Performance 4 - Supervision or touching assistance - [place] provides VERBAL CUES or TOUCHING/STEADYING/CONTACT GUARD assistance as patient completes activity. Assistance may beprovided throughout the activity or intermittently. Sit to lying Discharge Goal 6 - Independent - Patient completes the activity by him/herself with noassistance from a helper Lying to Sitting on the Side of Bed Admission Performance 4 - Supervision or touching assistance - [place] provides VERBAL CUES or TOUCHING/STEADYING/CONTACT GUARD assistance as patient completes activity. Assistance may be provided throughout the activity or intermittently. Lying to Sitting on the Side of Bed Discharge Goal 6 - Independent - Patient completes the activityby him/herself with no assistance from a helper Sit to Stand Admission Performance 4 - Supervision or touching assistance - [place] provides VERBAL CUES or TOUCHING/STEADYING/CONTACT GUARD assistance as patient completes activity. Assistance may beprovided throughout the activity or intermittently. Sit to Stand Discharge Goal 6 - Independent - Patient completes the activity by him/herself with noassistance from a helper Chair/Ogs-wc-Ecozf Transfer Admission Performance 4 - Supervision or touching assistance - [place] provides VERBAL CUES or TOUCHING/STEADYING/CONTACT GUARD assistance as patient completes activity. Assistance may be provided throughout the activity or intermittently. Chair/Pgp-dw-Ujujf Transfer Discharge Goal 6 - Independent - Patient completes the activity by him/herself with no assistance from a helper Does the patient walk? 2 - Yes Walk 10 feet Admission Performance 4 - Supervision or touching assistance - [place] provides VERBAL CUES or TOUCHING/STEADYING/CONTACT GUARD assistance as patient completes activity. Assistance may beprovided throughout the activity or intermittently. Walk 10 feet Discharge Goal 6 - Independent - Patient completes the activity by him/herself with noassistance from a helper Walks 50 feet with two turns Admission Performance 4 - Supervision or touching assistance - [place] provides VERBAL CUES or TOUCHING/STEADYING/CONTACT GUARD assistance as patient completes activity. Assistance may be provided throughout the activity or intermittently. Walks 50 feet with two turns Discharge Goal 6 - Independent - Patient completes the activity by him/herself with no assistance from a helper Walk 150 feet Admission Performance 4 - Supervision or touching assistance - [place] provides VERBALCUES or TOUCHING/STEADYING/CONTACT GUARD assistance as patient completes activity. Assistance may be provided throughout the activity or intermittently. Walk 150 feet Discharge Goal 6 - Independent - Patient completes the activity by him/herself with no assistance from a helper Walking 10 feet on Uneven Surfaces Admission Performance 4 - Supervision or touching assistance - [place] provides VERBAL CUES or TOUCHING/STEADYING/CONTACT GUARD assistance as patient completes activity. Assistance may be provided throughout the activity or intermittently. Walking 10 feet on Uneven Surfaces Discharge goal 6 - Independent - Patient completes the activity by him/herself with no assistance from a helper 1 Step (curb) Admission Performance 4 - Supervision or touching assistance - [place] provides VERBALCUES or TOUCHING/STEADYING/CONTACT GUARD assistance as patient completes activity. Assistance may be provided throughout the activity or intermittently. 1 Step (curb) Discharge Goal 6 - Independent - Patient completes the activity by him/herself with no assistance from a helper 4 Steps Admission Performance 4 - Supervision or touching assistance - [place] provides VERBAL CUES or TOUCHING/STEADYING/CONTACT GUARD assistance as patient completes activity. Assistance may be provided throughout the activity or intermittently. 4 Steps Discharge Goal 6 - Independent - Patient completes the activity by him/herself with no assistance from a helper 12 Steps Admission Performance 88 - Not attempted due to medical condition or safety concerns 12 Steps Discharge Goal 6 - Independent - Patient completes the activity by him/herself with no assistance from a helper Picking up object Admission Performance 3 - Partial/Moderate assistance - [place] does LESS THAN HALF the effort. [place] lifts, holds or supports trunk or limbs, but provides less than half the effort Picking up object Discharge Goal 6 - Independent - Patient completes the activity by him/herself with no assistance from a helper Does the patient use a wheelchair/scooter No documented in this encounter Plan of Treatment Not on file documented as of this encounter Procedures Procedure Name Priority Date/Time Associated Diagnosis Comments COMPREHENSIVE METABOLIC PANEL Routine 12/05/2018 8:27 AM CDT CBC W/DIFF AUTOMATED Routine 12/05/2018 8:27 AM CDT MRSA SCREENING Routine 12/04/2018 1:45 PM CDT documented in this encounter Results * (ABNORMAL) COMPREHENSIVE METABOLIC PANEL (12/05/2018 8:27 AM CDT) GLUCOSE 88 70 - 99 MG/DL 12/05/2018 9:33 AM CDT [facility] BUN 14 7 - 18 MG/DL 12/05/2018 9:33 AM CDT [facility] CREATININE S/P/B 0.86 0.7 - 1.3 MG/DL 12/05/2018 9:33 AM CDT [facility] SODIUM S/P/B 136 136 - 145 MMOL/L 12/05/2018 9:33 AM CDT [facility] POTASSIUM S/P/B 4.2 3.5 - 5.1 MMOL/L 12/05/2018 9:33 AM CDT [facility] CHLORIDE S/P/B 100 100 - 108 MMOL/L 12/05/2018 9:33 AM CDT [facility] CO2 30.4 21 - 32 MMOL/L 12/05/2018 9:33 AM [facility] CALCIUM S/P/B 9.1 8.5 - 10.1 MG/DL 12/05/2018 9:33 AM [facility] BILIRUBIN TOTAL S/P/B 0.4 0.2 - 1.2 MG/DL 12/05/2018 9:33 AM [facility] TOTAL PROTEIN S/P/B 6.5 6.4 - 8.2 G/DL 12/05/2018 9:33 AM [facility] ALBUMIN S/P/B 3.5 3.4 - 5.0 G/DL 12/05/2018 9:33 AM [facility] AST 10(L) 15 - 37 U/L 12/05/2018 9:33 AM [facility] ALT 18 16 - 60 U/L 12/05/2018 9:33 AM [facility] ALKALINE PHOSPHATASE S/P/B 53 50 - 136 U/L 12/05/2018 9:33 AM [facility] ANION GAP 5.6 5 - 15 MMOL/L 12/05/2018 9:33 AM [facility] BUN CREATININE RATIO 16.3 6 - 26 12/05/2018 9:33 AM [facility] A/G RATIO 1.2 1.0 - 2.0 RATIO 12/05/2018 9:33 AM [facility] EGFR NON-AFR. AMER. >90 >90 ML/MIN/1.7 3 M2 12/05/2018 9:33 AM [facility] EGFR AFR. AMER. >90 >90 ML/MIN/1.7 3 M2 12/05/2018 9:33 AM [facility] Comment: NOTE: eGFR is not calculated for patients <18 years of age. This is an estimated GFR (CKD EPI) and should not be used for calculating drug doses. 12/05/2018 8:27 AM CDT Renetta Johnson MD LABORATORY Final Result [facility] [address] [place] [address], [place] [phone] * (ABNORMAL) CBC W/DIFF AUTOMATED (12/05/2018 8:27 AM CDT) WBC 5.0 4.5 - 11.0 x10'3/uL 12/05/2018 9:07 AM CDT [facility] RBC 4.29(L) 4.70 - 6.10 x10'6/uL 12/05/2018 9:07 AM CDT [facility] HGB 13.9(L) 14.0 - 18.0 G/DL 12/05/2018 9:07 AM CDT [facility] HCT 40.9(L) 43.0 - 54.0 % 12/05/2018 9:07 AM CDT [facility] MCV 95.3(H) 80.0 - 94.0 FL 12/05/2018 9:07 AM CDT [facility] MCH 32.4(H) 27.0 - 31.0 PG 12/05/2018 9:07 AM CDT [facility] MCHC 34.0 32.0 - 36.0 G/DL 12/05/2018 9:07 AM CDT [facility] RDW 12.2 11.5 - 14.5 % 12/05/2018 9:07 AM CDT [facility] PLT 241 130 - 400 x10'3/uL 12/05/2018 9:07 AM CDT [facility] MPV 10.3 9.3 - 12.2 FL 12/05/2018 9:07 AM T [facility] DIFFERENTIAL TYPE AUTOMATED DIFFERENTIAL 12/05/2018 9:07 AM T [facility] NEUTROPHILS % 36.4 % 12/05/2018 9:07 AM T [facility] LYMPHOCYTES % 43.7 % 12/05/2018 9:07 AM T [facility] MONOCYTES % 7.6 % 12/05/2018 9:07 AM T [facility] EOSINOPHILS 11.1 % 12/05/2018 9:07 AM T [facility] BASOPHILS 0.8 % 12/05/2018 9:07 AM T [facility] IMMATURE GRANS % 0.4 % 12/06/19 19 9:07 AM [facility] ABS. NEUTROPHILS TOTAL 1.83 1.80 - 7.70 x10'3/uL 12/05/2018 9:07 AM T [facility] ABS. LYMPHOCYTES 2.20 1.00 - 4.80 x10'3/uL 12/05/2018 9:07 AM T [facility] ABS. MONOCYTES 0.38 0.30 - 0.82 x10'3/uL 12/05/2018 9:07 AM T [facility] ABS. EOSINOPHILS 0.56(H) 0.04 - 0.54 x10'3/uL 12/05/2018 9:07 AM T [facility] ABS. BASOPHILS 0.04 0.01 - 0.08 x10'3/uL 12/05/2018 9:07 AM [facility] ABS. IMMATURE GRANULOCYTES 0.02 0.00 - 0.49 x10'3/uL 12/05/2018 9:07 AM T [facility] 12/05/2018 8:27 AM CDT Renetta Johnson MD LABORATORY Final Result Performing Organization Address [facility]/ZIP Co de Phone Number [facility] [address] [place] [address], [place] [phone] * MRSA SCREENING (12/04/2018 1:45 PM CDT) SPEC DESCRIPTION NASAL 12/04/2018 1:56 PM CDT [facility] SPECIAL REQUESTS NO SPECIAL REQUEST 12/04/2018 1:56 PM CDT [facility] CULTURE RESULT NO METHICILLIN RESISTANT STAPHYLOCOCCUS AUREUS ISOLATED 12/05/2018 12:19 PM CDT [facility] SPECIMEN FROM INTERNAL NOSE / Unknown 12/04/2018 1:45 PM CDT 12/04/2018 2:00 PM CDT Renetta Johnson MD MICROBIOLOGY - GENERAL ORDERAB LES Final Result Performing Organization Address City/[facility] Co de Phone Number [facility] [address] [place] [address], [place] [phone] documented in this encounter Visit Diagnoses Diagnosis Encephalopathy- Primary Encephalopathy, unspecified Seizure ([facility]) Other convulsions documented in this encounter Administered Medications Inactive Administered Medications - up to 3 most recent administrations Medication Order MAR Action Action Date Dose Rate Site acetaminophen (TYLENOL) 160 MG/5ML solution 650 mg 650 mg, Oral, Every 4 hours PRN, Mild pain (Scale 1 - 3), Fever, Temp greater than 99 F (37 C), Starting on 12/04/18 at 1343, Until Tue12/12/18 at 1519, Give if unable to swallow tablets/capsules or if patient prefers liquid. Maximum dose of acetaminophen is 4000 mg from all sources in 24 hours.Indications:Seizure (CMS/HCC HHS/HCC) acetaminophen (TYLENOL) suppository 650 mg 650 mg, Rectal, Every 4 hours PRN, Mild pain (Scale 1 - 3), Fever, Temp greater than 99 F (37 C), Starting on Tue12/04/18 at 1343, Until Tue12/12/18 at 1519, Give if unable to take PO. Maximum dose of acetaminophen is 4000 mg from all sources in 24 hours.Indications:Seizure ([facility]) acetaminophen (TYLENOL) tablet 650 mg 650 mg, Oral, Every 4 hours PRN, Mild pain (Scale 1 - 3), Fever, Temp greater than 99 F (37 C), Starting on Tue12/04/18 at 1343, Until Tue12/12/18 at 1519, Maximum dose of acetaminophen is 4000 mg from all sources in 24 hours.Indications:Seizure ([facility]) Given 12/11/2018 6:30 AM CDT 650 mg Given 12/10/2018 9:58 PM CDT 650 mg Given 12/09/2018 8:39 PM CDT 650 mg amlodipine (NORVASC) tablet 5 mg 5 mg, Oral, Daily, First dose on Tue12/05/18 at 0900, Until DiscontinuedIndications:Seizure ([facility]) Given 12/12/2018 8:13 AM CDT 5 mg Given 12/11/2018 8:34 AM CDT 5 mg Given 12/10/2018 8:37 AM CDT 5 mg aspirin chewable tablet 81 mg 81 mg, Oral, Daily, First dose on Tue12/05/18 at 0900, Until DiscontinuedIndications:Seizure ([facility]) Given 12/12/2018 8:14 AM CDT 81 mg Given 12/11/2018 8:34 AM CDT 81 mg Given 12/10/2018 8:38 AM CDT 81 mg atorvastatin (LIPITOR) tablet 20 mg 20 mg, Oral, Daily, First dose on Tue12/05/18 at 0900, Until DiscontinuedIndications:Seizure ([facility]) Given 12/12/2018 8:13 AM CDT 20 mg Given 12/11/2018 8:34 AM CDT 20 mg Given 12/10/2018 8:38 AM CDT 20 mg bisacodyl EC (DULCOLAX) tablet 10 mg 10 mg, Oral, Daily as needed, Constipation, Starting on Tue12/05/18 at 1741, Until Tue12/12/18 at 1018, Do not break, chew, or crush. Given 12/07/2018 5: 54 AM CDT 10 mg Given 12/06/2018 8:15 PM CDT 10 mg Given 12/05/2018 6:37 PM CDT 10 mg divalproex EC (DEPAKOTE) delayed release tablet 500 mg 500 mg, Oral, 2 times daily, First dose on Tue12/04/18 at 2100, Until Discontinued, Do not break, chew, or crush. HAZARDOUS MEDICATIONIndications:Seizure ([facility]) Given 12/12/2018 8:13 AM CDT 500 mg Given 12/11/2018 8:04 PM CDT 500 mg Given 12/11/2018 8:34 AM CDT 500 mg docusate sodium (COLACE) capsule 100 mg 100 mg, Oral, 2 times daily, First dose on Tue12/04/18 at 2100, Until Discontinued Given 12/12/2018 8:13 AM CDT 100 m g Given 12/11/2018 8:03 PM CDT 100 mg Given 12/11/2018 8:33 AM CDT 100 mg folic acid (FOLVITE) tablet 1 mg 1 mg, Oral, Daily, First dose on Tue12/05/18 at 0900, Until DiscontinuedIndications:Seizure ([facility]/HCC) Given 12/12/2018 8:14 AM CDT 1 mg Given 12/11/2018 8:34 AM CDT 1 mg Given 12/10/2018 8:38 AM CDT 1 mg gabapentin (NEURONTIN) capsule 300 mg 300 mg, Oral, 3 times daily, First dose on Tue12/04/18 at 1600, Until DiscontinuedIndications:Seizure ([facility]CC) Given 12/08/2018 8:41 AM CDT 300 mg Given 12/07/2018 8:16 PM CDT 300 mg Given 12/07/2018 4:50 PM CDT 300 mg gabapentin (NEURONTIN) capsule 300 mg 300 mg, Oral, Nightly at bedtime, First dose (after last modification) on Tue12/08/18 at 2100, Until DiscontinuedIndications:Seizure ([facility]/HCC) Given 12/10/2018 8:19 PM CDT 300 mg Given 12/09/2018 8:41 PM CDT 300 mg Given 12/08/2018 8:43 PM CDT 300 mg heparin (porcine) injection 5,000 Units 5,000 Units, Subcutaneous, Every 12 hours scheduled (2 times per day), First dose on Tue12/04/18 at 2100, Until DiscontinuedIndications:Se izure ([facility]) Given 12/12/2018 8:14 AM CDT 5,000 Units Right Upper Abdomen Given 12/11/2018 8:03 PM CDT 5,000 Units L eft Lower Abdomen Given 12/11/2018 8:33 AM CDT 5,000 Units R ight Upper Abdomen levETIRAcetam (KEPPRA) tablet 2,000 mg 2,000 mg, Oral, 2 times daily, First dose on Tue12/04/18 at 2100, Until Discontinued, Tablets should be swallowed whole. Do not cut, chew, or crush tablets.Indications:Seizure ([facility]) Given 12/12/2018 10:08 AM CDT 2,000 mg Given 12/11/2018 8:03 PM CDT 2,000 mg Given 12/11/2018 8:34 AM CDT 2,000 mg OXcarbazepine (TRILEPTAL) tablet 450 mg 450 mg, Oral, 2 times daily, First dose on Tue12/04/18 at 2100, Until Discontinued, HAZARDOUS MEDICATION HAZARDOUS MEDICATIONIndications:Seizure ([facility]) Given 12/12/2018 8:13 AM CDT 450 mg Given 12/11/2018 8:03 PM CDT 450 mg Given 12/11/2018 8:34 AM CDT 450 mg polyethylene glycol (GLYCOLAX) packet 1 packet 1 packet, Oral, Daily, First dose on Tue12/05/18 at 0900, Until Discontinued, Dissolve powder in 240 mL water Given 12/12/2018 8:13 AM CDT 1 packet Given 12/11/2018 8:31 AM CDT 1 packet Given 12/08/2018 8:42 AM CDT 1 packet tamsulosin (FLOMAX) capsule 0.4 mg 0.4 mg, Oral, Daily, First dose on Tue12/05/18 at 0900, Until DiscontinuedIndications:Seizure ([facility]) Given 12/12/2018 8:13 AM CDT 0.4 mg Given 12/11/2018 8:33 AM CDT 0.4 mg Given 12/10/2018 8:38 AM CDT 0.4 mg vitamin B-1 (THIAMINE) tablet 100 mg 100 mg, Oral, Daily, First dose on Tue12/05/18 at 0900, Until DiscontinuedIndications:Seizure (CMS/HCC [facility]) Given 12/12/2018 8:14 AM CDT 100 mg Given 12/11/2018 8:34 AM CDT 100 mg Given 12/10/2018 8:38 AM CDT 100 mg documented in this encounter Active and Recently Administered Medications Times are shown in CDT. Scheduled Medication Order 12/10/2018 12/11/2018 12/12/2018 amlodipine (NORVASC) tablet 5 mg 5 mg, Oral, Daily, First dose on Tue12/05/18 at 0900, Until Discontinued 0837 (Given - Provider: Cony Adan RN) 0834 (Given - Provider: Tena Gagnon RN) 0813 (Given - Provider: Tena Gagnon RN) aspirin chewable tablet 81 mg 81 mg, Oral, Daily, First dose on Tue12/05/18 at 0900, Until Discontinued 0838 (Given - Provider: Cony Adan RN) 0834 (Given - Provider: Tena Gagnon RN) 0814 (Given - Provider: Tena Gagnon RN) atorvastatin (LIPITOR) tablet 20 mg 20 mg, Oral, Daily, First dose on Tue12/05/18 at 0900, Until Discontinued 0838 (Given - Provider: Cony Adan RN) 0834 (Given - Provider: Tena Gagnon RN) 0813 (Given - Provider: Tena Gagnon RN) divalproex EC (DEPAKOTE) delayed release tablet 500 mg 500 mg, Oral, 2 times daily, First dose on Tue12/04/18 at 2100, Until Discontinued, Do not break, chew, or crush. HAZARDOUS MEDICATION 0838 (Given - Provider: Cony Adan RN)2020 (Given - Provider: Eugenia George RN) 0834 (Given - Provider: Tena Gagnon RN)2004 (Given - Provider: Patricia Benjamin RN) 0813 (Given - Provider: Tena Gagnon RN) docusate sodium (COLACE) capsule 100 mg 100 mg, Oral, 2 times daily, First dose on Tue12/04/18 at 2100, Until Discontinued 0838 (Given - Provider: Cony Adan RN)2018 (Given - Provider: Eugenia George RN) 0833 (Given - Provider: Tena Gagnon RN)2002 (Given - Provider: Patricia Benjamin RN) 812 (Given - Provider: Tena Gagnon RN) folic acid (FOLVITE) tablet 1 mg 1 mg, Oral, Daily, First dose on Tue12/05/18 at 0900, Until Discontinued 0838 (Given - Provider: Cony Adan RN) 0834 (Given - Provider: Tena Gagnon RN) 08 (Given - Provider: Tena Gagnon RN) gabapentin (NEURONTIN) capsule 300 mg (CANCELED) 300 mg, Oral, Nightly at bedtime, First dose (after last modification) on Tue12/08/18 at 2100, Until Discontinued 2018 (Given - Provider: Eugenia George RN) heparin (porcine) injection 5,000 Units(Linked Group 1) 5,000 Units, Subcutaneous, Every 12 hours scheduled (2 times per day), First dose on Tue12/04/18 at 2100, Until Discontinued 0838 (Given - Provider: Cony Adan RN)2018 (Given - Provider: Eugenia George RN) 0833 (Given - Provider: Tena Gagnon RN)2002 (Given - Provider: Patricia Benjamin RN) 813 (Given - Provider: Tena Gagnon RN) levETIRAcetam (KEPPRA) tablet 2,000 mg 2,000 mg, Oral, 2 times daily, First dose on Tue12/04/18 at 2100, Until Discontinued, Tablets should be swallowed whole. Do not cut, chew, or crush tablets. 0837 (Given - Provider: Cony Adan RN)2018 (Given - Provider: Eugenia George RN) 0834 (Given - Provider: Tena Gagnon RN)2002 (Given - Provider: Patricia Benjamin RN) 100 (Given - Provider: Tena Gagnon RN) OXcarbazepine (TRILEPTAL) tablet 450 mg 450 mg, Oral, 2 times daily, First dose on Tue12/04/18 at 2100, Until Discontinued, HAZARDOUS MEDICATION HAZARDOUS MEDICATION 0837 (Given - Provider: Cony Adan RN)2019 (Given - Provider: Eugenia George RN) 0834 (Given - Provider: Tena Gagnon, ALFRED)2002 (Given - Provider: Patricia Benjamin RN) 0813 (Given - Provider: Tena Gagnon RN) polyethylene glycol (GLYCOLAX) packet 1 packet 1 packet, Oral, Daily, First dose on Tue12/05/18 at 0900, Until Discontinued, Dissolve powder in 240 mL water 0839 (Not Given - Provider: Cony Adan RN - Reason: Patient/family declined) 0831 (Given - Provider: Tena Gagnon RN) 0813 (Given - Provider: Tena Gagnon RN) tamsulosin (FLOMAX) capsule 0.4 mg 0.4 mg, Oral, Daily, First dose on Tue12/05/18 at 0900, Until Discontinued 0838 (Given - Provider: Cony Adan RN) 0833 (Given - Provider: Tena Gagnon RN) 0813 (Given - Provider: Tena Gagnon RN) vitamin B-1 (THIAMINE) tablet 100 mg 100 mg, Oral, Daily, First dose on Tue12/05/18 at 0900, Until Discontinued 0838 (Given - Provider: Cony Adan RN) 0834 (Given - Provider: Tena Gagnon RN) 0814 (Given - Provider: Tena Gagnon RN) PRN Medication Order 12/10/2018 12/11/2018 12/12/2018 acetaminophen (TYLENOL) 160 MG/5ML solution 650 mg(Linked Group 2) 650 mg, Oral, Every 4 hours PRN, Mild pain (Scale 1 - 3), Fever, Temp greater than 99 F (37 C), Starting on Tue12/04/18 at 1343, Until Tue12/12/18 at 1519, Give if unable to swallow tablets/capsules or if patient prefers liquid. Maximum dose of acetaminophen is 4000 mg from all sources in 24 hours. 2158 (See Alternative - Provider: Eugenia George RN) 629 (See Alternative - Provider: Eugenia George RN) acetaminophen (TYLENOL) suppository 650 mg(Linked Group 2) 650 mg, Rectal, Every 4 hours PRN, Mild pain (Scale 1 - 3), Fever, Temp greater than 99 F (37 C), Starting on Tue12/04/18 at 1343, Until Tue12/12/18 at 1519, Give if unable to take PO. Maximum dose of acetaminophen is 4000 mg from all sources in 24 hours. 2157 (See Alternative - Provider: Eugenia George RN) 629 (See Alternative - Provider: Eugenia George RN) acetaminophen (TYLENOL) tablet 650 mg(Linked Group 2) 650 mg, Oral, Every 4 hours PRN, Mild pain (Scale 1 - 3), Fever, Temp greater than 99 F (37 C), Starting on Tue12/04/18 at 1343, Until Tue12/12/18 at 1519, Maximum dose of acetaminophen is 4000 mg from all sources in 24 hours. 2157 (Given - Provider: Eugenia George RN) 629 (Given - Provider: Eugenia George RN) clonazePAM (KLONOPIN) tablet 0.25 mg 0.25 mg, Oral, 2 times daily PRN, Seizures, Starting on Tue12/04/18 at 1343, Until Tue12/12/18 at 1519, HAZARDOUS MEDICATION Linked Groups Order Group 1: heparin (porcine) injection 5,000 UnitsJump to med 5,000 Units, Subcutaneous, Every 12 hours scheduled (2 times per day), First dose on Tue12/04/18 at 2100, Until Discontinued And Moderate Risk for VTE (COMPLETED) Group 2: acetaminophen (TYLENOL) tablet 650 mgJump to med 650 mg, Oral, Every 4 hours PRN, Mild pain (Scale 1 - 3), Fever, Temp greater than 99 F (37 C), Starting on Tue12/04/18 at 1343, Until Tue12/12/18 at 1519, Maximum dose of acetaminophen is 4000 mg from all sources in 24 hours. Or acetaminophen (TYLENOL) suppository 650 mgJump to med 650 mg, Rectal, Every 4 hours PRN, Mild pain (Scale 1 - 3), Fever, Temp greater than 99 F (37 C), Starting on Tue12/04/18 at 1343, Until Tue12/12/18 at 151, Give if unable to take PO. Maximum dose of acetaminophen is 4000 mg from all sources in 24 hours. Or acetaminophen (TYLENOL) 160 MG/5ML solution 650 mgJump to med 650 mg, Oral, Every 4 hours PRN, Mild pain (Scale 1 - 3), Fever, Temp greater than 99 F (37 C), Starting on Tue12/04/18 at 1343, Until Tue12/12/18 at 1519, Give if unable to swallow tablets/capsules or if patient prefers liquid. Maximum dose of acetaminophen is 4000 mg from all sources in 24 hours. documented in this encounter Care Teams Nurse'S Assistant Relationship Specialty Start Date End Date Misael Maradiaga DO [address] [place] [address] PCP - General FAMILY PRACTICE 09/28/18 01/13/20 Frank Toure MD [address] [place] [address] [employer] Naphthalene Operator Helper CARDIOVASCULAR DISEASE 05/30/16 documented as of this encounter
--- OUTSIDE RECORDS SUMMARY | 2024-06-08 05:52 | XMS_ITS | Encounter Summary ---
Author Organization [facility] Address [address] [facility]. [place], [place] [id number] [place] [address] Care Team Providers Care Washery Boss Name Role Phone Frank Toure MD Unavailable Kayla Porras NP Primary Care Provider [phone] Encounter Details Date Type Department Care Team (Latest Contact Info) Description 10/16/2017 Abstract [facility] Misael Maradiaga, DO [address] [phone] Social History Tobacco Use Types [...] on filedocumented in this encounter Care Teams Washery Boss Relationship Specialty Start Date End Date Kayla Por[place] [address] PCP - General 06/25/16 09/27/18 Frank Toure MD [address] [place] [address] [place] Staff Midwife/Apprenticeship Director CARDIOVASCULAR DISEASE 05/30/16 documented as of this encounter
--- OUTSIDE RECORDS SUMMARY | 2024-06-08 05:52 | XMS_ITS | Encounter Summary ---
Author Organization [facility] Address [address] [facility] [place] [address] [place] [address] Care Team Providers Care Data Entry Manager Name Role Phone Frank Toure MD Unavailable Misael Maradiaga DO Primary Care Provider + [phone] Encounter Details Date Type Department Care Team (Latest Contact Info) Description 11/12/2018 Scan HEALTH INFO SRVCS Scanned, Documents Social [...] filedocumented in this encounter Care Teams Data Entry Manager Relationship Specialty Start Date End Date Misael Maradiaga DO [address] [place] [address] PCP - General FAMILY PRACTICE 09/28/18 01/13/20 Frank Toure MD [address] [place] [address] [place] [employer] Welding Machine Operator CARDIOVASCULAR DISEASE 05/30/16 documented as of this encounter
--- OUTSIDE RECORDS SUMMARY | 2024-06-08 05:52 | XMS_ITS | Encounter Summary ---
Author Organization [facility] Address [address] [facility] [place] [address] [place] [address] Care Team Providers Care Hot Die Press Feeder Name Role Phone Frank Toure MD Unavailable Kayla Porras NP Primary Care Provider Reason for Visit * Reason Onset Date Comments Question 08/10/2018 Encounter Details Date Type Department Care Team (Late st Contact Info) Description 08/10/2018 Telephone [facility] Medical [facility] Family Medicine - [place] [address] [place] [address] Misael Maradiaga, DO [address] [phone] Question Social History Tobacco Use Types Packs/Day [...] No 08/28/2017 2:38 PM CDT Loraine Staley R N Active documented in this encounter Progress Notes * Yonatan Horvath RN - 08/10/2018 3:43 PM CDT This referral was placed and processed through the referral center. Evie at [facility] was notifiedand stated she would call the patient's sister to inform her. * Yonatan Horvath RN - 08/10/2018 2:36 PM CDT Evie from [facility] called and was wanting to know if Dr. Maradiaga would write an order for the patient to have home nursing come to the patient's house to help with medications. The patient's sister called [facility] and stated that the patient has been in and out of the hospital due to seizures and she does not think her brother is taking his medication correctly. The patient's sister was wanting someone to come help the patient with medication. documented in this encounter Plan of Treatment Not on file documented as of this encounter Visit Diagnoses Not on filedocumented in this encounter Care Teams Hot Die Press Feeder Relationship Specialty Start Date End Date Kayla Porras NP [address] [place] [address] PCP - General 06/25/16 09/27/18 Frank Toure MD [address] [place] [address] [employer] Aircraft Worker CARDIOVASCULAR DISEASE 05/30/16 documented as of this encounter
--- OUTSIDE RECORDS SUMMARY | 2024-06-08 05:52 | XMS_ITS | Encounter Summary ---
Author Organization [facility] Address [facility] [place] [address] [place] [address] Care Team Providers Care Chief Of Internal Medicine Name Role Phone Frank Toure MD Unavailable Misael Maradiaga DO Primary Care Provider + [phone] Reason for Visit * Reason Onset Date Comments Appointment Request 12/12/2018 Encounter Details Date Type Department Care Team (Late st Contact Info) Description 12/12/2018 Telephone [facility] [address] [place] [address] Duarte Santacruz MD [address] [place] [address] Appointment Request Social History Tobacco Use Types [...] documented in this encounter Progress Notes * Marcella Benoit - 12/13/2018 3:37 PM CDT [phone] work number goes through to pt's sister. I spoke with her and let her know that we are readyfor pt to call us to schedule with Noam. She said she will let him know. Thank you. * Daniella Simental MA - 12/12/2018 1:33 PM CDT Called [facility] on [facility] rehab to schedule pt. She said he was just discharged and provided me withhis home number. I called this number and wasn't able to reach the pt or LVM. If pt calls office back, please schedule next available 40 min SUPERINTENDENT LOGGING appt. Thanks! * Delilah Cloud - 12/12/2018 10:45 AM CDT [facility] rehab floor is calling. They are discharging this patient today, and there are orders that he needs to follow up with Dr. Santacruz. Patient has a history of seizures. He already sees a doctor in [place], but is wanting to see a doctor over here. - per Dr. Johnson. Please call patient toschedule. The [facility] doctor that he sees is Dr. Feliciano. Patient has [place]. documented in this encounter Plan of Treatment Not on file documented as of this encounter Visit Diagnoses Not on filedocumented in this encounter Care Teams Chief Of Internal Medicine Relationship Specialty Start Date End Date Misael Maradiaga DO [address] [place] [address] PCP - General FAMILY PRACTICE 09/28/18 01/13/20 Frank Toure MD [address] [place] [address] [place] [employer] Legal Assistant CARDIOVASCULAR DISEASE 05/30/16 documented as of this encounter
--- OUTSIDE RECORDS SUMMARY | 2024-06-08 05:52 | XMS_ITS | Encounter Summary ---
Author Organization [facility] Address [address] [facility] [place] [address] [place] [address] Care Team Providers Care Central Office Inspector Name Role Phone Frank Toure MD Unavailable Kayla Porras NP Primary Care Provider [phone] Reason for Visit * Reason Comments CT (SCAN) Encounter Details Date Type Department Care Team (Latest Contact Info) Description 06/10/2018 Scan HEALTH INFO SRVCS Scanned, Documents CT (SCAN) Social History Tobacco Use Types [...] Date/Time Associated Diagnosis Comments CT GENERIC Routine 06/10/2018 documented in this encounter Results * CT (06/10/2018) Anatomical Region Laterality Modality Other us Documents Scanned SCANNING Edited Result - Final documented in this encounter Visit Diagnoses Not on filedocumented in this encounter Care Teams Central Office Inspector Relationship Specialty Start Date End Date [place] [address] PCP - General 06/25/16 09/27/18 Frank Toure MD [address] [place] [id number] [employer] Earth Science Technical Officer CARDIOVASCULAR DISEASE 05/30/16 documented as of this encounter
--- OUTSIDE RECORDS SUMMARY | 2024-06-08 05:52 | XMS_ITS | Encounter Summary ---
Author Organization [facility] Address [address] [facility]. [place], [place] [address] [place] [address] Care Team Providers Care Sales Office Coordinator Name Role Phone Frank Toure MD Unavailable Kayla Porras NP Primary Care Provider [phone] Encounter Details Date Type Department Care Team (Latest Contact Info) Description 04/04/2018 Scan [facility] , Jerica Cordon MD Social [...] on filedocumented in this encounter Care Teams Sales Office Coordinator Relationship Specialty Start Date End Date Kayla Porras NP [address] [place] [address] [place] [address] PCP - General 06/25/16 09/27/18 Frank Toure MD [address] [place] [address] [employer] Planetarium Technician CARDIOVASCULAR DISEASE 05/30/16 documented as of this encounter
--- OUTSIDE RECORDS SUMMARY | 2024-06-08 05:52 | XMS_ITS | Encounter Summary ---
Author Organization [facility] Address [address] [facility]. [place], [place] [address] [place] [address] Care Team Providers Care Press Tender Long Goods Name Role Phone Frank Toure MD Unavailable Kayla Porras NP Primary Care Provider [phone] Encounter Details Date Type Department Care Team (Latest Contact Info) Description 01/30/2018 Scan [facility] Medical [facility] , Jerica Cordon MD [...] on filedocumented in this encounter Care Teams Press Tender Long Goods Relationship Specialty Start Date End Date Kayla Porras NP [address] [place] [address] [place] [address] PCP - General 06/25/16 09/27/18 Frank Toure MD [address] [place] [address] [employer] Dean CARDIOVASCULAR DISEASE 05/30/16 documented as of this encounter
--- OUTSIDE RECORDS SUMMARY | 2024-06-08 05:52 | XMS_ITS | Encounter Summary ---
Author Organization [facility] Address [address] [facility] [place] [address] [place] [address] Care Team Providers Care Cooling Machine Operator Name Role Phone Frank Toure MD Unavailable Kayla Porras NP Primary Care Provider [phone] Encounter Details Date Type Department Care Team (Late st Contact Info) Description 03/24/2018 Abstract [facility] Family Medicine - [address] [phone] Misael Maradiaga, [address] [place] [phone] Social History Tobacco Use Types Packs/Day Years [...] Sign Reading Time Taken Comments Blood Pressure 144/89 03/24/2018 2:43 PM CDT Pulse 79 03/24/2018 2:43 PM CDT Temperature - - Respiratory Rate - - Oxygen Saturation - - Inhaled Oxygen Concentration - - Weight 62.6 kg (138 lb) 03/24/2018 2:43 PM CDT Height - - Body Mass Index 19.25 10/12/2017 3:13 PM CDT documented in this [...] encounter Progress Notes * Misael Maradiaga, - 03/24/2018 2:40 PM CDT Chief Complaint 58 year old male here for follow up visit on ER. Went to [facility] for seizures. History of Present Illness Pt has been in and out of ER for SZ disorder He has been to ER 5 times in 6 mos with modifications of his meds at some of the visits when asked, he is not sure the specifics of what meds he is supposed to be on He thinks he is to be on gabapentin 2 tabs bid he thinks he is supposed to be on keppra 750 2 in AM and 2 in PM He takes depakote 125 3 at night and 3 in AM he reports he is not on valproic acid and has never taken this He is demanding he get refills of his keppra as he states he is out of this However, when I went through his med bag, he had a full bottle for keppra at 750 3 tabs 2 times a day which he is confused about and didn't realize he was supposed to take it 3 tabs 2 times a day Upon further questioning, he lives alone, has a sr. logistics analyst 2 times per week Several years ago, he was in a group home as he was unable to care for himself But he reports he only stayed 6 mos, and got out and refuses to go back Review of systems General: denies any fevers, chills. Gastrointestinal: Patient denies any nausea, vomiting, diarrhea or constipation Cardiovascular: Patient denies Chest pain, shortness of breath. Physical Exam General: Well-developed, well-nourished, in no acute distress. Poor historian Neck: Supple without adenopathy, trachea midline Lungs: Clear to auscultation bilaterally without wheezing, rhonchi or crackles. No increase work ofbreathing or signs of respiratory distress Heart: Regular rate and rhythm without murmurs, clicks or bruits. Abdomen: Nondistended, Nontender. Extremities: No clubbing, cyanosis, or edema noted. Neuro: grossly intact. Psych: Normal mood, normal affect. Poor historian, confusion about which meds he is on Active Problems 1. Alcohol abuse (305.00) (F10.10) 2. Clavicular fracture (810.00) (S42.009A) 3. Disability examination (V68.01) (Z02.71) 4. Dysphagia (787.20) (R13.10) 5. Dysphagia (787.20) (R13.10) 6. Fracture of metatarsal (825.25) (S92.309A) 7. Gastric erosion (535.40) (K25.9) 8. History of CVA (cerebrovascular accident) (V12.54) (Z86.73) 9. Hyperlipidemia (272.4) (E78.5) 10. Hypertension (401.9) (I10) 11. Imbalance (781.2) (R26.89) 12. Low back pain (724.2) (M54.5) 13. [...] History 1. History of Colonoscopy ?? 11/22/16: [facility] (3 small polyps removed) 2. History of Esophagogastroduodenoscopy ?? 11/22/16: [facility] (antral erosion, mild duodenal bulb erythema) 3. [...] Oral Tablet; TAKE 1 TABLET DAILY; Therapy: 90Bcd0666 to (Evaluate:31Wks5214) Recorded 5. BusPIRone HCl - 10 MG Oral Tablet; Therapy: 17Nov2016 to Recorded 6. Divalproex Sodium 125 MG Oral Tablet Delayed Release; TAKE 4 TABLET 4 times daily; Therapy: 90Wcd9481 to Recorded 7. Gabapentin 300 MG Oral Capsule; TK 1 C PO BID; Therapy: 01Mar2017 to (Evaluate:49Aiy5664) Requested for: 06Bhy2597; Last Rx:[id number] Ordered 8. LevETIRAcetam 750 MG Oral Tablet; TAKE 2 TABLETS TWICE DAILY; Therapy: 41Paf6978 to (Evaluate:09Vxe3633); Last Rx:[id number] Ordered 9. Mapap 325 MG Oral Tablet; TAKE 2 TABLETS BY MOUTH EVERY 4 HOURS NEEDED FOR PAIN; Therapy: 28Iio9892 to (Evaluate:48Lgy2970) Requested for: 03Qgv3539; Last Rx:80Ubs1869 Ordered 10. Metoprolol Succinate ER 25 MG Oral Tablet Extended Release 24 Hour; TAKE 1 TABLET DAILY; Therapy: 29Grd8229 to (Evaluate:09Aug2017) Recorded 11. Tamsulosin HCl - 0.4 MG Oral Capsule; Take 1 cap daily Requested for: 19Nov2016; Last Rx:[id number] Ordered 12. TraMADol HCl - 50 MG Oral Tablet; Therapy: 73Fyf3569 to Recorded 13. Vitamin B-1 100 MG Oral Tablet; TAKE 1 TABLET BY MOUTH DAILY DIRECTED; Therapy: 28Lkn2496 to (Evaluate:16Pyx0747) Requested for: 56Hhy5943; Last Rx:02Hxi2180 Ordered 14. Vitamin B1 100 MG TABS; TAKE 1 TABLET DAILY DIRECTED; Therapy: 24Zao4539 to (Evaluate:93Bhd4532) Requested for: 43Rhi7817; Last Rx:66Hci2928 Ordered Allergies 1. No Known Drug Allergies Immunizations Influenza --- Series1: 23-Jun-2016; Series2: 15-Jun-2017 PPSV --- Series1: 13-Aug-2015 Tdap --- Series1: 23-Mar-2017 Vitals Recorded: 24Mar2018 02:43PM Temperature 98.2 F Heart Rate 79 Respiration 14 Systolic 144 Diastolic 89 O2 Saturation 96 Weight 138 lb BMI Calculated 19.25 BSA Calculated 1.8 Assessment 1. Poor historian (V49.89) (Z78.9) 2. Seizures (780.39) (R56.9) 3. Needs flu shot (V04.81) (Z23) Plan Poor historian 1. Schedule Airplane Captain Visit Outpatient Pt is a high ER utilizer for recurring Seizure disoder He does not know his meds, and when he comes in, he doesn't have proper hosital paperwork, or is missing pages. Please eval to see if he is able to care for himself Status: Hold For - Scheduling Requested for: 24Mar2018 Ordered; For: Ira howellian; Ordered By: Misael Maradiaga Performed: Due: 07Apr2018 Unlinked 2. Divalproex Sodium 125 MG Oral Capsule Delayed Release Sprinkle Rx By: ANTHONY; Dispense: 30 Days ; #:240; Refill: 0; RACHEL = N; Record; Last Updated By: Misael Maradiaga; 03/24/2018 2:44:23 PM Discussion/Summary SZ disorder none in the past 3 weeks he has been in and out of ER several times in past few months He has appt with [facility] neurology on Tuesday He presents today not sure what meds he is supposed to be on He brought in paperwork from hospital that is missing pages I clarified he should be on keppra 3 tabs bid and keep same dose of depakote and f/u with neurologynext week I was place a social work visit to eval him at his home to see if any challenges he has at home flu shot today 25 min appt, > 50% coordinating care Signatures Electronically signed by : Misael Maradiaga D.O.; Mar 24 2018 3:50PM BRASS CLEANER (Author) documented in this encounter Plan of Treatment Not on file documented as of this encounter Visit Diagnoses Not on filedocumented in this encounter Care Teams Cooling Machine Operator Relationship Specialty Start Date End Date Kay[place] [address] PCP - General 06/25/16 09/27/18 Frank Toure MD [address] [place] [address] [employer] Senior Stock Plan Administrator CARDIOVASCULAR DISEASE 05/30/16 documented as of this encounter
--- OUTSIDE RECORDS SUMMARY | 2024-06-08 05:52 | XMS_ITS | Encounter Summary ---
Author Organization [facility] Address [address] [facility]. [place], [place] [address] [place] [address] Care Team Providers Care Ski Molder Name Role Phone Frank Toure MD Unavailable Kayla Porras NP Primary Care Provider [phone] Encounter Details Date Type Department Care Team (Latest Contact Info) Description 02/27/2018 Abstract [facility] Medical Group , Jerica Cordon [...] on filedocumented in this encounter Care Teams Ski Molder Relationship Specialty Start Date End Date Kayla Porras NP [address] [place] [address] [place] [address] PCP - General 06/25/16 09/27/18 Frank Toure MD [address] [place] [address] [place] Research Dietitian CARDIOVASCULAR DISEASE 05/30/16 documented as of this encounter
--- OUTSIDE RECORDS SUMMARY | 2024-06-08 05:52 | XMS_ITS | Encounter Summary ---
Author Organization [facility] Address [address] [facility] [place] [address] [place] [address] Care Team Providers Care Glazier Metal Furniture Name Role Phone Frank Toure MD Unavailable Kayla Porras NP Primary Care Provider [phone] Reason for Visit * Reason Comments CT (SCAN) [facility] CT HEAD W/O IV CONTRAST W/ASSOC EVISIT NOTES Encounter Details Date Type Department Care Team (Late Contact Info) Description 08/10/2018 Scan HEALTH INFO SRVCS Scanned, Documents CT (SCAN) ([facility] CT HEAD W/O IV CONTRAST W/ASSOC EVISIT NOTES) Social History Tobacco Use Types Packs/Day Years [...] Date/Time Associated Diagnosis Comments CT GENERIC Routine 08/10/2018 documented in this encounter Results * CT (08/10/2018) Anatomical Region Laterality Modality Other us Documents Scanned SCANNING Final Result documented in this encounter Visit Diagnoses Not on filedocumented in this encounter Care Teams Glazier Metal Furniture Relationship Specialty Start Date [place] [address] PCP - General 06/25/16 09/27/18 Frank Toure MD [address] [place] [address] Chivo Test Carrier CARDIOVASCULAR DISEASE 05/30/16 documented as of this encounter
--- OUTSIDE RECORDS SUMMARY | 2024-06-08 05:52 | XMS_ITS | Encounter Summary ---
Author Organization [facility] Address [address] [facility] [place] [address] [place] [address] Care Team Providers Care Director Of Valuation Name Role Phone Frank Toure MD Unavailable Misael Maradiaga DO Primary Care Provider [phone] Reason for Referral * Consultation (Routine) - Closed Specialty Diagnoses / Procedures Referred By Anabella dan Referred To Contact UROLOGY Diagnoses Weight loss Rising PSA level Chas Luevano NP [facility] Multispecialty Care - [address], [address] [place] [address] Phone: tel: fax: Referral ID Status Reason Start Date Expiration Date V isits Requested Visits Authorized [id number] Closed Specialty Services 12/25/2018 01/25/2020 99 99 Reason for Visit * Reason Comments Hospital Follow Up Encounter Details Date Type Department Care Team ([facility] Contact Info) Description 12/19/2018 3:00 PM CDT Office Visit [facility] Family Medicine - [address] [address] Chas Luevano NP Hospital Follow Up Social History Tobacco Use Types [...] Sign Reading Time Taken Comments Blood Pressure 132/64 12/19/2018 3:13 PM CDT Pulse 71 12/19/2018 2:22 PM CDT Temperature 36.4 ??C (97.6 ??F) 12/19/2018 2:22 PM CD T Respiratory Rate 14 12/19/2018 2:22 PM CDT Oxygen Saturation 98% 12/19/2018 2:22 PM CDT Inhaled Oxygen Concentration - - Weight 60.6 kg (133 lb 9.6 oz) 12/19/2018 2:22 P M CDT Height - - Body Mass Index 18.63 12/04/2018 1:57 PM CDT documented in this [...] documented in this encounter Progress Notes * Annalise Linton MA - 12/19/2018 3:00 PM CDTAddended by: ANNALISE LINTON on: 12/20/2018 06:47 AM Modules accepted: Orders * Chas Luevano NP - 12/19/2018 3:00 PM CDTAddended by: CHAS LUEVANO on: 12/25/2018 05:31 PM Modules accepted: Orders * Chas Luevano NP - 12/19/2018 3:00 PM CDT Images from the original note were not included. OFFICE FOLLOW UP NOTE Encounter Date: 12/19/2018 Chief Complaint: 58-year-old male presents for Hospital Follow Up . Patient comes in for follow up from hospitalization 12/04-12/12 Admitting diagnosis was:Functional impairment secondary to Encephalopathy it is thought that he could have been taking too much of his medication. He had inpatient rehab during his stay and improved mentally and physically Today he presents to office and reports he feels back to his baseline He is receiving in home PT and this is helping him continue regaining his strength His family has taken over his medication only putting what he needs daily. He is alert and oriented x 3 today. Walking with a wheeled walker Sister accompanies him to his appointment. Prior to this hospitalization he had had an ER visit for hyponatremia which was resolved with IV fluids. He reports eating and drinking well His weight is down 13 lbs from his last office visit with us less than 1 month ago despite him eating well. His sister does endorse that when he was in hospital he ate very well but since he has been home hehas not been eating as well and does have ensure supplements that he sometimes drinks. Weight from discharge to now has been stable. He is concerned that he is taking too much Keppra as he states one of the providers while admitted stated that he was on very high doses and may need to be decreased. His dose was increased in September byneurology. He has a follow up with [facility] neurology 12/26/18. He has had no seizures during or since discharge. There were no changes to his medications. HTN Denies any headache, chest pains or shortness of breath. Compliant with medications HLD On statin No muscle aches or weakness Seizures No changes in medications No seizure activity Review of Systems Constitutional: Negative for chills [...] lt side weakness History Smoking Status ??? Current Every Day [...] by mouth daily. 30 tablet 0 ??? acetaminophen 325 MG tablet Take 2 tablets (650 mg total) by mouth every 4 (four) hours as needed. 30 tablet 0 ??? aspirin 81 MG [...] visit. No Known Allergies Objective: Filed Vitals: 12/19/18 1422 12/19/18 1513 BP: 140/76 132/64 Pulse: 71 Resp: 14 Temp: 97.6 ??F (36.4 ??C) TempSrc: Oral SpO2: 98% Weight: 60.6 kg (133 lb 9.6 oz) Body mass index is 18.63 kg/m??. Physical Exam Constitutional: He is oriented to person, place, and time and well-developed, well-nourished, and in no distress. Cardiovascular: Normal rate, regular rhythm and normal heart sounds. Pulmonary/Chest: Effort normal and breath sounds normal. Lymphadenopathy: He has no cervical adenopathy. Neurological: He is alert and oriented to person, place, and time. Walks with assistance of rolled walker. Skin: Skin is warm and dry. Vitals reviewed. Assessment: Encounter Diagnose(s) ICD-10-CM ICD-9-CM 1. Screening for prostate cancer Z12.5 V76.44 PROSTATE SPECIFIC ANTIGEN,SCREENING 2. Seizure (CMS/HCC) R56.9 780.39 follow up with neurology as scheduled take meds as ordered 3. Essential hypertension I10 401.9 amlodipine 5 MG tablet stable continue medications 4. Weight loss R63.4 783.21 try and eat 3 meals daily boost/ensure to supplement have note sent over after visit next week fu [address] Maradiaga Plan: Bi was seen today for hospital follow up. Diagnoses and all orders for this visit: Screening for prostate cancer - PROSTATE SPECIFIC ANTIGEN,SCREENING; Future Seizure (CMS/HCC) Comments: follow up with neurology as scheduled take meds as ordered Essential hypertension Comments: stable continue medications Orders: - amlodipine 5 MG tablet; Take 1 tablet (5 mg total) by mouth daily. Weight loss Comments: try and eat 3 meals daily boost/ensure to supplement have note sent over after visit next week fu [address] Maradiaga Follow up with Dr. Maradiaga in 1month Discussed plan of care with patient. Patient verbalized understanding. [place]- Cosigned by Marielena Smallwood MD at 12/19/2018 10:17 PM CDT documented in this encounter Plan of Treatment Scheduled Referrals Name Type Priority Associated Diagnoses Orde r Schedule Ambulatory referral to Urology (OTHER) Referral Routine Weight loss Rising PSA level Ordered: 12/25/2018 documented as of this encounter Procedures Procedure Name Priority Date/Time Associated Diagnosis Comments COLLECTION VENOUS BLOOD VENIPUNCTURE Routine 12/20/2018 6:47 AM CDT Seizure ([facility] HHS/HCC) documented in this encounter Results * PROSTATE SPECIFIC ANTIGEN,SCREENING (12/19/2018 3:29 PM CDT) PSA 1.01 <4.00 NG/ML 12/19/2018 8:07 PM CDT [facility] Comment: Test was performed using the Siemens method. ??Results obtained with other assay methods or kits cannot be used interchangeably with results obtained by the Siemens method. 12/19/2018 3:29 PM CDT Chas Luevano NP LABORATORY Final Result [facility] [address] [place] [address], [place] [phone] documented in this encounter Visit Diagnoses Diagnosis Screening for prostate cancer- Primary Special screening for malignant neoplasm of prostate Seizure ([facility]/HCC HHS/HCC) Other convulsions Essential hypertension Unspecified essential hypertension Weight loss Loss of weight Rising PSA level Elevated prostate specific antigen (PSA) documented in this encounter Care Teams Director Of Valuation Relationship Specialty Start Date End Date Misael Maradiaga DO [address] [place] [address] PCP - General FAMILY PRACTICE 09/28/18 01/13/20 Frank Toure MD [address] [place] [address] [employer]better Program Writer CARDIOVASCULAR DISEASE 05/30/16 documented as of this encounter
--- OUTSIDE RECORDS SUMMARY | 2024-06-08 05:52 | XMS_ITS | Encounter Summary ---
Author Organization [facility] Address [address] [facility] [place] [address] [place] [address] Care Team Providers Care Bone Char Kiln Operator Name Role Phone Frank Toure MD Unavailable Misael Maradiaga DO Primary Care Provider [phone] Encounter Details Date Type Department Care Team (Latest Contact Info) Description 12/13/2018 Scan HEALTH INFO SRVCS Scanned, Documents Social [...] on filedocumented in this encounter Care Teams Bone Char Kiln Operator Relationship Specialty Start Date End Date Misael Maradiaga DO [address] [place] [address] PCP - General FAMILY PRACTICE 09/28/18 01/13/20 Frank Toure MD [address] [place] [address] Chivo Surg Physician Asst CARDIOVASCULAR DISEASE 05/30/16 documented as of this encounter
--- OUTSIDE RECORDS SUMMARY | 2024-06-08 05:52 | XMS_ITS | Encounter Summary ---
Author Organization [facility] Address [address] [place] [address] [place] [address] Care Team Providers Care Cigar Packer And Picker Name Role Phone Frank Toure MD Unavailable Kayla Porras NP Primary Care Provider [phone] Reason for Visit * Reason Comments Lab (SCAN) LEVETIRACETAM LEVEL Encounter Details Date Type Department Care Team (Late st Contact Info) Description 08/07/2018 Scan HEALTH INFO SRVCS Scanned, Documents Lab (SCAN) (LEVETIRACETAM LEVEL) Social History Tobacco Use Types Packs/Day Years [...] Diagnosis Comments OUTSIDE LAB (SCAN ORDER) Routine 08/07/2018 documented in this encounter Results * OUTSIDE LAB (08/07/2018) 08/07/2018 us Documents Scanned SCANNING Final Result documented in this encounter Visit Diagnoses Not on filedocumented in this encounter Care Teams Cigar Packer And Picker Relationship Specialty Start Date End Date [place] [address] PCP - General 06/25/16 09/27/18 Frank Toure MD [address] [place] [address] Chivo Fabrication Engineer CARDIOVASCULAR DISEASE 05/30/16 documented as of this encounter
--- OUTSIDE RECORDS SUMMARY | 2024-06-08 05:52 | XMS_ITS | Encounter Summary ---
Author Organization [facility] Address [address] [facility]. [place], [place] [address] [place] [address] Care Team Providers Care Hydrogen Cell Tender Name Role Phone Frank Toure MD Unavailable Misael Maradiaga DO Primary Care Provider [phone] Reason for Visit * Reason Comments Image (SCAN) Encounter Details Date Type Department Care Team (Latest Contact Info) Description 11/12/2018 Scan HEALTH INFO SRVCS Scanned, Documents Image [...] office or shopping? Yes 12/04/2018 2:03 PM CDT Shookman, Anahi R, RN Ac tive * RETIRED Are you [...] or making decisions? No 12/04/2018 2:03 PM KASIT Anahi Jernigan RN Active * Because of a physical, mental, or emotional condition, do you have serious difficulty concentrating, remembering, or making decisions? Answer Entry Date Author Status No 08/28/2017 2:38 PM KASIT Loraine Staley RN Active documented in this encounter Plan of Treatment Not on file documented as of this encounter Visit Diagnoses Not on filedocumented in this encounter Care Teams Hydrogen Cell Tender Relationship Specialty Start Date End Date Misael Maradiaga DO [address] [place] [address] PCP - General FAMILY PRACTICE 09/28/18 01/13/20 Frank Toure MD [address] [place] [address] Chivo Resident Care Manager CARDIOVASCULAR DISEASE 05/30/16 documented as of this encounter
--- OUTSIDE RECORDS SUMMARY | 2024-06-08 05:52 | XMS_ITS | Encounter Summary ---
Author Organization [facility] Address [address] [place] [address] [place] [address] Care Team Providers Care Parasitology Teacher Name Role Phone Frank Toure MD Unavailable Misael Maradiaga DO Primary Care Provider [phone] Reason for Visit * Reason Onset Date Comments Information 09/29/2018 Encounter Details Date Type Department Care Team (Late st Contact Info) Description 09/29/2018 Telephone [facility] Medical [facility] Family Medicine - [place] [address] [place] [address] Misael Maradiaga DO [address] [place] [phone] Information Social History Tobacco Use Types Packs/Day [...] Progress Notes * Yonatan Horvath RN - 09/29/2018 8:21 AM CDT Spoke to patient. Per Dr. Maradiaga, patient needs to get his levetiracetam filled by his neurologist.Pt stated he would call his neurologist for this refill when he gets up. documented in this encounter Plan of Treatment Not on file documented as of this encounter Visit Diagnoses Not on filedocumented in this encounter Care Teams Parasitology Teacher Relationship Specialty Start Date End Date Misael Maradiaga DO [address] [place] [address] PCP - General FAMILY PRACTICE 09/28/18 01/13/20 Frank Toure MD [address] [place] [address] Chivo Fisheries Inspector CARDIOVASCULAR DISEASE 05/30/16 documented as of this encounter
--- OUTSIDE RECORDS SUMMARY | 2024-06-08 05:52 | XMS_ITS | Encounter Summary ---
Author Organization [facility] Address [address] [facility]. [place], [place] [address] [place] [address] Care Team Providers Care Tool Dresser Name Role Phone Frank Toure MD Unavailable Misael Maradiaga DO Primary Care Provider + [phone] Reason for Referral * Physical Medicine (Routine) - Closed Specialty Diagnoses / Procedures Referred By Anabella dan Referred To Contact PHYSICAL THERAPY / [facility] Physical Therapy Diagnoses Lumbar radiculopathy Kayla Porras NP [address] [place] [address] Phone: tel: fax: [facility] Physical Therapy [address] [facility], [address] [place] [address] Phone: tel: fax: Referral ID Status Reason Start Date Expiration Date V isits Requested Visits Authorized [id number] Closed Physical Therapy 11/22/2018 12/22/2019 24 24 Reason for Visit * Reason Comments Physical Therapy Encounter Details Date Type Department Care Team (Late st Contact Info) Description 11/22/2018 2:20 PM CDT Office Visit [facility] Medical Group Family Medicine - [address] [phone] Kayla Porras NP [address] [place] [address] Physical Therapy Social History Tobacco Use Types Packs/Day Years Used Date Smoking Tobacco: Every Day Smokeless Tobacco: Never Tobacco Cessation:Ready to Q [...] Sign Reading Time Taken Comments Blood Pressure 125/80 11/22/2018 2:13 PM CDT Pulse 83 11/22/2018 2:13 PM CDT Temperature 36.8 ??C (98.3 ??F) 11/22/2018 2:13 PM CD T Respiratory Rate 16 11/22/2018 2:13 PM CDT Oxygen Saturation 98% 11/22/2018 2:13 PM CDT Inhaled Oxygen Concentration - - Weight 64 kg (141 lb) 11/22/2018 2:13 PM CDT Height 180.3 cm (5' 11 ) 11/22/2018 2:13 PM CDT per patient Body Mass Index 19.67 11/22/2018 2:13 PM CDT documented in this encounter Functional [...] Liao RN Active documented in this encounter Progress Notes * Kayla Porras, SUPERVISOR PLATE FORMING - 11/22/2018 2:20 PM CDT Images from the original note were not included. OFFICE NOTE Encounter Date: 11/22/2018 Chief Complaint: 58-year-old male presents for Physical Therapy . HPI Pleasant 58-year-old male here with his sister with complaints of bilateral leg pain He saw his neurologist October 21 He was recommended to see physical therapy for leg weakness Was informed to stop gabapentin He may or may not have been taking this occasionally still His sister does say that he has been taking this I did discuss with patient to stop taking gabapentin as neurologist ordered this can cause drowsiness and falls. Patient had verbal understanding No chest pain, no palpitations, no shortness breath, no headache, no changes in vision No dyspnea No one sided weakness No fatigue No headache No cough No night sweats No fever No chills No decreased appetite No difficulty with bowel or bladder Denies pain in office Denies any pain at home He says he has been more sedentary lately needs physical therapy to increase his strength Denies falls but says he is off balance and catches himself He said he is never completely fallen He has never had his head Using walker which is normal for him Alert x3 today Review of Systems Constitutional: Negative for chills, diaphoresis and fever. HENT: Negative for congestion, ear pain, nosebleeds, sinus pain and sore throat. Eyes: Negative for blurred vision and double vision. Respiratory: Negative for cough, shortness of breath and wheezing. Cardiovascular: Negative for chest pain, palpitations, orthopnea, claudication and leg swelling. Gastrointestinal: Negative for abdominal pain, blood in stool, constipation, diarrhea, heartburn, nausea and vomiting. Genitourinary: Negative for dysuria, flank pain, frequency, hematuria and urgency. Musculoskeletal: Negative for myalgias. Skin: Negative for rash. Neurological: Negative for dizziness, loss of consciousness and headaches. Psychiatric/Behavioral: Negative for depression. The patient is not nervous/anxious. Patient Active Problem List Diagnosis ??? Seizure (CMS/HCC) ??? Osteoporosis Past Medical History: Diagnosis Date ??? HLD [...] Substance and Sexual Activity Drug Use No Immunization History Administered Date(s) Administered ??? Tdap (Boostrix) 06/06/2017 Current Outpatient Medications Medication Sig Dispense Refill ??? AMLODIPINE 5 [...] Take 3 mg by mouth daily. ??? ibuprofen 600 MG tablet Take 1 tablet (600 mg total) by mouth every 6 (six) hours as needed forPain. 40 tablet 0 ??? levETIRAcetam 1000 MG tablet Take 2,000 mg by mouth. ??? OXcarbazepine 300 MG tablet Take 450 mg by mouth. ??? ROWEEPRA 750 MG tablet Take 2,250 mg by mouth 2 (two) times daily. 5 ??? vitamin B1 100 MG tablet Take 100 mg by mouth daily. No current facility-administered medications for this visit. No Known Allergies Objective: Filed Vitals: 11/22/18 1413 BP: 125/80 Pulse: 83 Resp: 16 Temp: 98.3 ??F (36.8 ??C) TempSrc: Temporal SpO2: 98% Weight: 64 kg (141 lb) Height: 5' 11 (1.803 m) PainSc: 7 Moderate Pain (0-10 Scale) Body mass index is 19.67 kg/m??. No LMP for male patient. Physical Exam Constitutional: He is oriented to person, place, and time and well-developed, well-nourished, and in no distress. HENT: Head: Normocephalic. Mouth/Throat: Oropharynx is clear and moist. No oropharyngeal exudate. Eyes: Conjunctivae and EOM are normal. Right eye exhibits no discharge. Left eye exhibits no discharge. Neck: Normal range of motion. Neck supple. No JVD present. No tracheal deviation present. Cardiovascular: Normal rate, regular rhythm and intact distal pulses. Exam reveals no friction rub. No murmur heard. Pulmonary/Chest: Effort normal and breath sounds normal. No stridor. No respiratory distress. He has no wheezes. He has no rales. He exhibits no tenderness. Abdominal: Soft. Bowel sounds are normal. He exhibits no distension. There is no tenderness. There is no guarding. Musculoskeletal: Normal range of motion. He exhibits no edema, tenderness or deformity. Lymphadenopathy: He has no cervical adenopathy. Neurological: He is alert and oriented to person, place, and time. He has a normal Romberg Test. Heshows no pronator drift. Gait normal. Coordination normal. Uses walker for ambulation Negative straight leg raise He is able to lift both legs without difficulty No decreased range of motion No leg swelling Skin: Skin is warm and dry. No rash noted. He is not diaphoretic. No erythema. No pallor. Psychiatric: Mood and affect normal. Nursing note and vitals reviewed. Assessment: Encounter Diagnose(s) ICD-10-CM ICD-9-CM 1. Lumbar radiculopathy M54.16 724.4 XR LUMB SPINE 3V CBC W/DIFF AUTOMATED COMPREHENSIVE METABOLIC PANEL AMB REFERRAL TO PHYSICAL THERAPY Plan: Bi was seen today for physical therapy. Diagnoses and all orders for this visit: Lumbar radiculopathy - XR LUMB SPINE 3V; Future - CBC W/DIFF AUTOMATED; Future - COMPREHENSIVE METABOLIC PANEL; Future - AMB REFERRAL TO PHYSICAL THERAPY No obvious red flags in office No acute distress Sister says he is at baseline He says he did take his gabapentin today I did inform him this can cause drowsiness and to stop taking his gabapentin This will also put him at increased risk for falls Discussed fall risk Verbal understanding to stop this medication Follow-up with neurologist Labs, x-ray, and PT ordered to increase strength Follow-up for any concerns Call or return to clinic prn if these symptoms worsen or fail to improve as anticipated. Discussed plan of care with patient. Verbalized understanding. ULISES Newsome documented in this encounter Plan of Treatment Scheduled Referrals Name Type Priority Associated Diagnoses Orde r Schedule Ambulatory referral to Physical Therapy Referral Routine Lumbar radiculopathy Ordered: 11/22/2018 documented as of this encounter Results * (ABNORMAL) COMPREHENSIVE METABOLIC PANEL (11/23/2018 9:58 AM CDT) [facility] Signature GLUCOSE 80 70 - 99 MG/DL 11/23/2018 10:47 AM CDT [facility] BUN 8 7 - 18 MG/DL 11/23/2018 10:47 AM CDT [facility] CREATININE S/P/B 0.79 0.7 - 1.3 MG/DL 11/23/2018 10:47 AM CDT [facility] SODIUM S/P/B 129(L) 136 - 145 MMOL/L 11/23/2018 10:47 AM CDT [facility] POTASSIUM S/P/B 3.9 3.5 - 5.1 MMOL/L 11/23/2018 10:47 AM CDT [facility] CHLORIDE S/P/B 98(L) 100 - 108 MMOL/L 11/23/2018 10:47 AM CDT [facility] CO2 26.9 21 - 32 MMOL/L 11/23/2018 10:47 AM CDT [facility] CALCIUM S/P/B 8.7 8.5 - 10.1 MG/DL 11/23/2018 10:47 AM CDT [facility] BILIRUBIN TOTAL S/P/B 0.5 0.2 - 1.2 MG/DL 11/23/2018 10:47 AM CDT [facility] TOTAL PROTEIN S/P/B 6.8 6.4 - 8.2 G/DL 11/23/2018 10:47 AM T [facility] ALBUMIN S/P/B 3.9 3.4 - 5.0 G/DL 11/23/2018 10:47 AM T [facility] AST 20 15 - 37 U/L 11/23/2018 10:47 AM T [facility] ALT 14(L) 16 - 60 U/L 11/23/2018 10:47 AM T [facility] ALKALINE PHOSPHATASE S/P/B 57 50 - 136 U/L 11/23/2018 10:47 AM [facility] ANION GAP 4.1(L) 5 - 15 MMOL/L 11/23/2018 10:47 AM T [facility] BUN CREATININE RATIO 10.1 6 - 11/23/2018 10:47 AM [facility] A/G RATIO 1.3 1.0 - 2.0 RATIO 11/23/2018 10:47 AM [facility] EGFR NON-AFR. AMER. >90 >90 ML/MIN/1.7 3 M2 11/23/2018 10:47 AM T [facility] EGFR AFR. AMER. >90 >90 ML/MIN/1.7 3 M2 11/23/2018 10:47 AM [facility] Comment: NOTE: eGFR is not calculated for patients <18 years of age. This is an estimated GFR (CKD EPI) and should not be used for calculating drug doses. 11/23/2018 9:58 AM CDT us Kayla Porras NP LABORATORY Final Result [facility] [address] [place] [address], [place] [phone] * (ABNORMAL) CBC W/DIFF AUTOMATED (11/23/2018 9:58 AM CDT) [facility] Signature WBC 5.0 4.5 - 11.0 x10'3/uL 11/23/2018 10:18 AM CDT [facility] RBC 4.29(L) 4.70 - 6.10 x10'6/uL 11/23/2018 10:18 AM CDT [facility] HGB 13.8(L) 14.0 - 18.0 G/DL 11/23/2018 10:18 AM CDT [facility] HCT 39.6(L) 43.0 - 54.0 % 11/23/2018 10:18 AM CDT [facility] MCV 92.3 80.0 - 94.0 FL 11/23/2018 10:18 AM CDT [facility] MCH 32.2(H) 27.0 - 31.0 PG 11/23/2018 10:18 AM CDT [facility] MCHC 34.8 32.0 - 36.0 G/DL 11/23/2018 10:18 AM CDT [facility] RDW 11.7 11.5 - 14.5 % 11/23/2018 10:18 AM CDT [facility] PLT 164 130 - 400 x10'3/uL 11/23/2018 10:18 AM CDT [facility] MPV 10.6 9.3 - 12.2 FL 11/23/2018 10:18 AM CDT [facility] DIFFERENTIAL TYPE AUTOMATED DIFFERENTIAL 11/23/2018 10:18 AM CDT [facility] NEUTROPHILS % 40.6 % 11/23/2018 10:18 AM CDT [facility] LYMPHOCYTES % 44.2 % 11/23/2018 10:18 AM CDT [facility] MONOCYTES % 7.0 % 11/23/2018 10:18 AM CDT [facility] EOSINOPHILS 7.4 % 11/23/2018 10:18 AM CDT [facility] BASOPHILS 0.6 % 11/23/2018 10:18 AM CDT [facility] IMMATURE GRANS % 0.2 % 11/24/19 19 10:18 AM CDT [facility] ABS. NEUTROPHILS TOTAL 2.04 1.80 - 7.70 x10'3/uL 11/23/2018 10:18 AM CDT [facility] ABS. LYMPHOCYTES 2.22 1.00 - 4.80 x10'3/uL 11/23/2018 10:18 AM CDT [facility] ABS. MONOCYTES 0.35 0.30 - 0.82 x10'3/uL 11/23/2018 10:18 AM CDT [facility] ABS. EOSINOPHILS 0.37 0.04 - 0.54 x10'3/uL 11/23/2018 10:18 AM CDT [facility] ABS. BASOPHILS 0.03 0.01 - 0.08 x10'3/uL 11/23/2018 10:18 AM CDT [facility] ABS. IMMATURE GRANULOCYTES 0.01 0.00 - 0.49 x10'3/uL 11/23/2018 10:18 AM CDT [facility] 11/23/2018 9:58 AM CDT us Kayla Porras NP LABORATORY Final Result [facility] [address] [place] [address], documented in this encounter Visit Diagnoses Diagnosis Lumbar radiculopathy- Primary Thoracic or lumbosacral neuritis or radiculitis, unspecified documented in this encounter Care Teams Tool Dresser Relationship Specialty Start Date End Date Misael Maradiaga DO [address] [place] [address] PCP - General FAMILY PRACTICE 09/28/18 01/13/20 Frank Toure MD [address] [place] [address] [employer] Toolsmith CARDIOVASCULAR DISEASE 05/30/16 documented as of this encounter
--- OUTSIDE RECORDS SUMMARY | 2024-06-08 05:52 | XMS_ITS | Encounter Summary ---
Author Organization [facility] Address [address] [facility] [place] [address] [place] [address] Care Team Providers Care Survey Interviewer Name Role Phone Frank Toure MD Unavailable Kayla Porras NP Primary Care Provider [phone] Encounter Details Date Type Department Care Team (Late st Contact Info) Description 11/28/2017 Abstract [facility] Medical Group Family Medicine - [address] [phone] Misael Maradiaga, DO [address] [place] [phone] Social History Tobacco Use Types Packs/Day Years [...] on filedocumented in this encounter Care Teams Survey Interviewer Relationship Specialty Start Date End Date Kayla Porras NP [address] [place] [address] [place] [address] PCP - General 06/25/16 09/27/18 Frank Toure MD [address] [place] [address] [employer]ivo Crushing Machine Operator CARDIOVASCULAR DISEASE 05/30/16 documented as of this encounter
--- OUTSIDE RECORDS SUMMARY | 2024-06-08 05:52 | XMS_ITS | Encounter Summary ---
Author Organization [facility] Address [address] [facility] [place], [place] [address] [place] [address] Care Team Providers Care Access Consultant Name Role Phone Frank Toure MD Unavailable Kayla Porras NP Primary Care Provider [phone] Reason for Referral * Home Health Care (Emergency) - Closed Specialty Diagnoses / Procedures Referred By Anabella dan Referred To Contact Home Health Services Diagnoses Encounter for medication management Encounter for medication counseling Current non-adherence to medical treatment Misael Maradiaga DO Phone: tel: fax: Referral ID Status Reason Start Date Expiration Date V isits Requested Visits Authorized [id number] Closed Home Health Services 08/10/2018 09/11/2019 100 100 Encounter Details Date Type Department Care Team (Late st Contact Info) Description 08/10/2018 Orders Only [facility] Medical Group Family Medicine - [address] [phone] Misael Maradiaga DO [address] [phone] Social History Tobacco Use Types Packs/Day Years [...] Notes * Yonatan Horvath RN - 08/10/2018 3:06 PM CDT Referral placed per request and per Dr. Maradiaga's approval. documented in this encounter Plan of Treatment Scheduled Referrals Name Type Priority Associated Diagnoses Orde r Schedule Abbreviated Ambulatory Referral to Home Health Referral Routine Encounter for medication management Encounter for medication counseling Current non-adherence to medical treatment Ordered: 08/10/2018 documented as of this encounter Visit Diagnoses Diagnosis Encounter for medication management- Primary Encounter for long-term (current) use of other medications Encounter for medication counseling Other specified counseling Current non-adherence to medical treatment Personal history of noncompliance with medical treatment, presenting hazards to health documented in this encounter Care Teams Access Consultant Relationship Specialty Start Date End Date [place] [address] PCP - General 06/25/16 09/27/18 Frank Toure MD [address] [place] [address] [employer] Account[employer] Policy Consultant CARDIOVASCULAR DISEASE 05/30/16 documented as of this encounter
--- OUTSIDE RECORDS SUMMARY | 2024-06-08 05:52 | XMS_ITS | Encounter Summary ---
Author Organization [facility] Address [address] [facility]. [place], [place] [address] [place] [address] Care Team Providers Care Infection Control Nurse Name Role Phone Frank Toure MD Unavailable Kayla Porras CLEAN UP WORKER Primary Care Provider [phone] Misael Maradiaga DO Primary Care Provider [phone] Joyce Luevano CLEAN UP WORKER Primary Care Provider Unavail Marielena Adame MD Primary Care Provider [phone] Encounter Details Date Type Department Care Team (Latest Contact Info) Description 02/01/2018 Abstract [facility] Medical Group Jerica Tsai MD Social History Tobacco Use Types Packs/Day [...] on filedocumented in this encounter Care Teams Infection Control Nurse Relationship Specialty Start Date End Date Kayla Porras NP [address] [place] [address] PCP - General 06/25/16 09/27/18 Misael Maradi[place] [address] PCP - General FAMILY PRACTICE 09/28/18 01/13/20 Joyce Luevano [place] [address] PCP - General NURSE PRACTITIONER 01/14/20 10/26/23 Marielena Smallwood MD [address] [place] [address] PCP - General FAMILY PRACTICE 10/27/23 Frank Toure MD [address] [place] [address] [place] Air Conditioning Installer CARDIOVASCULAR DISEASE 05/30/16 documented as of this encounter
--- OUTSIDE RECORDS SUMMARY | 2024-06-08 05:52 | XMS_ITS | Encounter Summary ---
Author Organization [facility] Address [address] [place] [address] [place] [address] Care Team Providers Care Leather Coverer Name Role Phone Frank Toure MD Unavailable Misael Maradiaga DO Primary Care Provider [phone] Encounter Details Date Type Department Care Team (Latest Contact Info) Description 12/19/2018 6:24 PM CDT - 12/19/2018 11:59 PM CDT Hospital Encounter [facility] [place], [place] [address] Joyce Luevano NP Discharge Disposition: Home or Self Care (Routine [...] Time of Discharge vitamin B-1 100 MG TabIndications:Sei zure ([facility]) Take 1 tablet (100 mg total) by mouth daily. 30 tablet 12/13/2018 acetaminophen 325 MG tabletIndications: Seizure ([facility]) Take 2 tablets (650 mg total) by mouth every 4 (four) hours as needed. 30 tablet 12/12/2018 9 acetaminophen 325 MG tablet 12/12/2018 9 amlodipine 5 MG tabletIndications: Essential hypertension Take 1 tablet (5 mg total) by mouth daily. 30 tablet 12/19/2018 9 aspirin 81 MG chewable tabletIndications: Seizure ([facility]) Chew 1 tablet (81 mg total) by mouth daily. 30 tablet 12/13/2018 9 atorvastatin 20 MG tabletIndications: Seizure ([facility]) Take 1 tablet (20 mg total) by mouth daily. 30 tablet 12/13/2018 9 clonazePAM 0.5 MG tablet TK 1 T PO Q 8 H PRN. PLEASE CALL OFFICE IF SEIZURES OCCUR AFTER TAKING. 5 08/09/2018 1 divalproex EC 500 MG tabletIndications: Seizure ([facility]) Take 1 tablet (500 mg total) by [...] 12/13/2018 9 documented as of this encounter Progress Notes * Joyce Luevano NP - 12/19/2018 11:59 PM CDT Mr. Pat, I am going to be placing a referral for you to see a urologist. Your PSA increased. You are still within the normal range but with your recent weight loss I would like for you to see them. If you have any questions or concerns please let me know. -Joyce * Dina Euceda MA - 12/19/2018 11:59 PM CDT NO VM AVAILABLE. Enter remote access code * Dina Euceda MA - 12/19/2018 11:59 PM CDT No VM available. Sending letter to contact office. * Dina Euceda MA - 12/19/2018 11:59 PM CDT Letter sent to address on file. documented in this encounter Plan of Treatment Not on file documented as of this encounter Procedures Procedure Name Priority Date/Time Associated Diagnosis Comments PROSTATE SPECIFIC ANTIGEN,SCREENING Routine 12/19/2018 3:29 PM CDT Screening for prostate cancer documented in this encounter Results * PROSTATE SPECIFIC ANTIGEN,SCREENING (12/19/2018 3:29 PM CDT) PSA 1.01 <4.00 NG/ML 12/19/2018 8:07 PM CDT [facility] Comment: Test was performed using the Siemens method. ??Results obtained with other assay methods or kits cannot be used interchangeably with results obtained by the Siemens method. 12/19/2018 3:29 PM CDT Jocye Luevano MECHANICAL DESIGN ENGINEER FACILITIES LABORATORY Final Result [facility] [address] [place] [address], documented in this encounter Visit Diagnoses Diagnosis Screening for prostate cancer Special screening for malignant neoplasm of prostate documented in this encounter Care Teams Leather Coverer Relationship Specialty Start Date End Date Misael Maradiaga DO [address] [place] [address] PCP - General FAMILY PRACTICE 09/28/18 01/13/20 Frank Toure MD [address] [place] [address] [employer] Management Advisor CARDIOVASCULAR DISEASE 05/30/16 documented as of this encounter
--- OUTSIDE RECORDS SUMMARY | 2024-06-08 05:52 | XMS_ITS | Encounter Summary ---
Author Organization [facility] Address [address] [facility] [place], [place] [address] [place] [address] Care Team Providers Care Cuffing Machine Operator Name Role Phone Frank Toure MD Unavailable Kayla Porras NP Primary Care Provider Encounter Details Date Type Department Care Team (Latest Contact Info) Description 03/03/2018 Abstract [facility] Medical Group , Jerica Cordon [...] on filedocumented in this encounter Care Teams Cuffing Machine Operator Relationship Specialty Start Date End Date Kayla Porras NP [address] [place] [address] [place] [address] PCP - General 06/25/16 09/27/18 Frank Toure MD [address] [place] [address] [place] Instructional Design Technologist CARDIOVASCULAR DISEASE 05/30/16 documented as of this encounter
--- OUTSIDE RECORDS SUMMARY | 2024-06-08 05:52 | XMS_ITS | Encounter Summary ---
Author Organization [facility] Address [address] [place] [address] [place] [address] Care Team Providers Care Software Educator Name Role Phone Frank Toure MD Unavailable Misael Maradiaga DO Primary Care Provider + [phone] Reason for Visit * Reason Comments Discharge Summary (SCAN) [facility] DISCHARGE NOTICE Encounter Details Date Type Department Care Team (Late st Contact Info) Description 12/12/2018 Scan HEALTH INFO SRVCS Scanned, Documents Discharge Summary (SCAN) ([facility] DISCHARGE NOTICE) Social History Tobacco Use Types Packs/Day Years [...] on filedocumented in this encounter Care Teams Software Educator Relationship Specialty Start Date End Date Misael Maradiaga DO [address] [place] [address] PCP - General FAMILY PRACTICE 09/28/18 01/13/20 Frank Toure MD [address] [place] [address] [employer] Hand Meat Salter CARDIOVASCULAR DISEASE 05/30/16 documented as of this encounter
--- OUTSIDE RECORDS SUMMARY | 2024-06-08 05:52 | XMS_ITS | Encounter Summary ---
Author Organization [facility] Address [address] [facility] [place] [place] [address] [place] [address] Care Team Providers Care Air Analysis Technician Name Role Phone Frank Toure MD Unavailable Kayla Porras NP Primary Care Provider [phone] Reason for Visit * Reason Comments Discharge Summary (SCAN) [facility] Encounter Details Date Type Department Care Team (Late Contact Info) Description 08/24/2018 Scan HEALTH INFO SRVCS Scanned, Documents Discharge Summary (SCAN) ([facility]) Social History Tobacco Use Types Packs/Day Years [...] CDT Staley, Loraine M, RN Active * Do you have difficulty [...] on filedocumented in this encounter Care Teams Air Analysis Technician Relationship Specialty Start Date End [place] [address] PCP - General 06/25/16 09/27/18 Frank Toure MD [address] [place] [address] [employer] Race Starter CARDIOVASCULAR DISEASE 05/30/16 documented as of this encounter
--- OUTSIDE RECORDS SUMMARY | 2024-06-08 05:52 | XMS_ITS | Encounter Summary ---
Author Organization [facility] Address [address] [place] [address] [place] [address] Care Team Providers Care Diamond Die Driller Name Role Phone Frank Toure MD Unavailable Kayla Porras NP Primary Care Provider [phone] Reason for Visit * Reason Comments Follow Up Went to [facility] for seizure. Did CT scan. Feeling better. Encounter Details Date Type Department Care Team (Late st Contact Info) Description 08/21/2018 3:00 PM CDT Office Visit [facility] Family Medicine - [address] [address] Josse Arboleda, DO [address] [address] Follow Up (Went to [facility] for seizure. Did CT scan. Feeling better.) Social History Tobacco Use Types Packs/Day Years [...] Sign Reading Time Taken Comments Blood Pressure 122/70 08/21/2018 3:03 PM CDT Pulse 87 08/21/2018 3:03 PM CDT Temperature 36.5 ??C (97.7 ??F) 08/21/2018 3:03 PM CD T Respiratory Rate 12 08/21/2018 3:03 PM CDT Oxygen Saturation 99% 08/21/2018 3:03 PM CDT Inhaled Oxygen Concentration - - [...] encounter Progress Notes * Josse Arboleda, - 08/21/2018 3:00 PM CDT Images from the original note were not included. OFFICE FOLLOW UP NOTE Encounter Date: 08/21/2018 Chief Complaint: 58-year-old male presents for Follow Up (Went to [facility] for seizure. Did CT scan. Feeling better.) . HPI Pt known well to me Hx hx of SZ d/o He continues to be a poor historian He doesn't know the name of his neurologist despite seeing him several times in the past Currently on keppra 750mg, he takes 3 tabs bid He takes valproic acid at 500 bid and oxcarbazapeine Which he states was added by his neurologist He has not yet f/u with his neurologist But plans on seeing him soon at [facility] Initially pt was depending on his sister to help him with his meds, however, since DC from the hospital, he now has a home nurse that comes by twice a month She has re-organized his medical cabinet and verify the quantity remaining to make sure he is not forgetting his meds Review of Systems Constitutional: Negative [...] Outpatient Medications Medication Sig Dispense Refill ??? acetaminophen-codeine 300-30 MG tablet Take 1 tablet by mouth every 6 (six) hours as needed forPain. 12 tablet 0 ??? amlodipine 5 MG tablet Take 1 tablet (5 mg total) by mouth daily. 30 tablet 0 ??? ASPIR-LOW 81 MG tablet Take 81 mg by mouth daily. 0 ??? clonazePAM 0.5 MG tablet TK [...] by mouth 3 (three) times daily. ??? metoprolol succinate ER 25 MG 24 hr tablet Take 1 tablet by mouth daily. ??? OXcarbazepine 300 MG tablet Take 450 mg by mouth. ??? ROWEEPRA 750 MG tablet Take 2,250 mg by mouth 2 (two) times daily. 5 ??? vitamin B1 100 MG tablet Take 100 mg by mouth daily. No current facility-administered medications for this visit. No Known Allergies Objective: Filed Vitals: 08/21/18 1503 BP: 122/70 Pulse: 87 Resp: 12 Temp: 97.7 ??F (36.5 ??C) TempSrc: Oral SpO2: 99% Physical Exam Constitutional: He is [...] Assessment / Plan: 1. Seizure (CMS/HCC) Now SZ free since discharge And with home health nurse, appears to be going in the right direction He will cont to f/u with his neurologist for SZ control He has stopped crack, etoh and weed 2 years ago and happy about this Pt congratulated on remaining sober JOSSE ARBOLEDA DO documented in this encounter Plan of Treatment Not on file documented as of this encounter Visit Diagnoses Diagnosis Seizure (CMS/HCC HHS/HCC)- Primary Other convulsions documented in this encounter Care Teams Diamond Die Driller Relationship Specialty Start Date End Date Kayla Porras NP [address] [facility] [place] [address] PCP - General 06/25/16 09/27/18 Frank Toure MD [address] [place] [id number] [employer] Conductor Orchestra CARDIOVASCULAR DISEASE 05/30/16 documented as of this encounter
--- OUTSIDE RECORDS SUMMARY | 2024-06-08 05:52 | XMS_ITS | Encounter Summary ---
Author Organization [facility] Address [address] [place] [address] [place] [address] Care Team Providers Care Foil Stamp Operator Name Role Phone Frank Toure MD Unavailable Kayla Porras NP Primary Care Provider [phone] Reason for Visit * Reason Comments Lab (SCAN) [facility] Encounter Details Date Type Department Care Team (Late st Contact Info) Description 08/07/2018 Scan HEALTH INFO [facility] Scanned, Documents Lab (SCAN) ([facility]) Social History Tobacco Use Types [...] on filedocumented in this encounter Care Teams Foil Stamp Operator Relationship Specialty Start Date End Date Kayla [place] [address] PCP - General 06/25/16 09/27/18 Frank Toure MD [address] [place] [address] [employer] Leasing Coordinator CARDIOVASCULAR DISEASE 05/30/16 documented as of this encounter
--- OUTSIDE RECORDS SUMMARY | 2024-06-08 05:52 | XMS_ITS | Encounter Summary ---
Author Organization [facility] Address [address] [facility]. [place], [place] [address] [place] [address] Care Team Providers Care Car Distributor Name Role Phone Frank Toure MD Unavailable Kayla Porras NP Primary Care Provider [phone] Encounter Details Date Type Department Care Team (Latest Contact Info) Description 11/23/2017 Abstract [facility] Medical Group Misael Maradiaga, DO [address] [address] Social History Tobacco Use Types [...] filedocumented in this encounter Care Teams Car Distributor Relationship Specialty Start Date End Date Kayla [place] [address] PCP - General 06/25/16 09/27/18 Frank Toure MD [address] [place] [place] [address] Anson Debrander CARDIOVASCULAR DISEASE 05/30/16 documented as of this encounter
--- OUTSIDE RECORDS SUMMARY | 2024-06-08 05:53 | XMS_ITS | Encounter Summary ---
Author Organization [facility] Address [address] [facility] [place] [address] [place] [address] Care Team Providers Care Overhead Irrigator Name Role Phone Frank Toure MD Unavailable Kayla Porras NP Primary Care Provider [phone] Encounter Details Date Type Department Care Team (Latest Contact Info) Description 06/10/2017 Abstract [facility] Medical Group Social History Tobacco Use [...] documented as of this encounter Functional Status documented as of this encounter Mental Status * Question Answer Entry Date Author Status Because of a physical, mental, or emotional condition, do you have serious difficulty concentrating, remembering, or making decisions? No 08/28/2017 2:38 PM CDT Loraine Staley RN A ctive documented in this encounter Plan of Treatment Not on file documented as of this encounter Visit Diagnoses Not on filedocumented in this encounter Care Teams Overhead Irrigator Relationship Specialty Start Date End Date Kayla [place] [address] PCP - General 06/25/16 09/27/18 Frank Toure MD [address] [place] [address] [employer] Software Engineer Sales CARDIOVASCULAR DISEASE 05/30/16 documented as of this encounter
--- OUTSIDE RECORDS SUMMARY | 2024-06-08 05:53 | XMS_ITS | Encounter Summary ---
Author Organization [facility] Address [address] [facility] [place] [address] [place] [address] Care Team Providers Care Detail Supervisor Name Role Phone Frank Toure MD Unavailable Kayla Porras NP Primary Care Provider [phone] Encounter Details Date Type Department Care Team (Late st Contact Info) Description 03/23/[address] [facility] Room [address] [place], [place] [id number] Lupillo Rodriguez MD [address] [place], [place] [id number] Aleida Arrieta MD [address] [place] [id number] Social History Tobacco Use Types Packs/Day Years [...] Name Priority Date/Time Associated Diagnosis Comments URINALYSIS WI REFLEX TO CULTURE Routine 03/24/2017 1:15 PM CDT BASIC METABOLIC PANEL Routine 03/24/2017 6:46 AM CDT CBC W/DIFF AUTOMATED Routine 03/24/2017 6:46 AM CDT TROPONIN, QUANT TIMED 03/24/2017 6:46 AM CDT CK (CPK) TIMED 03/24/2017 6:46 AM CDT TROPONIN, QUANT TIMED 03/24/2017 2:37 AM CDT TROPONIN, QUANT STAT 03/24/2017 12:20 AM CDT COMPREHENSIVE METABOLIC PANEL STAT 03/23/2017 5:05 PM CDT CBC W/DIFF AUTOMATED STAT 03/23/2017 5:05 PM CDT ETHANOL STAT 03/23/2017 5:05 PM CDT CK (CPK) STAT 03/23/2017 5:05 PM CDT documented in this encounter Results * (ABNORMAL) URINALYSIS WI REFLEX TO CULTURE (03/24/2017 1:15 PM CDT) SPECIMEN TYPE URINE CLEAN CATCH 03/24/2017 2:30 PM CDT [facility] COLOR (U) STRAW 03/24/2017 2:51 PM CDT [facility] TRANSPARENCY CLEAR 03/24/2017 2:51 PM CDT [facility] SPECIFIC GRAVITY (U) 1.006 1.001 - 1.030 03/24/2017 2:51 PM CDT [facility] U PH 6.0 5.0 - 9.0 03/24/2017 2:51 PM CDT [facility] LEUKOCYTES (U) NEGATIVE NEGATIVE 03/24/2017 2:51 PM CDT [facility] NITRITES NEGATIVE NEGATIVE 03/24/2017 2:51 PM CDT [facility] PROTEIN (U) NEGATIVE <30 MG/DL 03/24/2017 2:51 PM CDT [facility] URINE GLUCOSE NEGATIVE NEGATIVE MG/DL 03/24/2017 2:51 PM CDT [facility] KETONES MG/DL (U) TRACE(A) NEGATIVE MG/DL 03/24/2017 2:51 PM CDT [facility] UROBILINOGEN NEGATIVE NEGATIVE MG/DL 03/24/2017 2:51 PM CDT [facility] BILIRUBIN (U) NEGATIVE NEGATIVE MG/DL 03/24/2017 2:51 PM CDT [facility] BLOOD (U) NEGATIVE NEGATIVE 03/24/2017 2:51 PM CDT [facility] CULTURE & SENSITIVITY INDICATED? CULTURE IS NOT INDICATED 03/24/2017 2:51 PM CDT [facility] SQUAMOUS EPITHELIALS RARE /LPF 03/24/2017 2:51 PM CDT [facility] WBC/HPF <1 <6 /HPF 03/24/2017 2:51 PM CDT [facility] RBC/HPF <1 <6 /HPF 03/24/2017 2:51 PM CDT [facility] 03/24/2017 1:1 5 PM CDT 03/24/2017 2:43 PM CDT us Generic Conversion Md O[facility] URINE ORDERABLES Final Result [facility] [place] [place] [address], [place] [phone] * TROPONIN, QUANT (03/24/2017 6:46 AM CDT) TROPONIN I <0.30 <0.30 ng/mL 03/24/2017 7:43 AM CDT [facility] SERUM OR PLASMA SPECIMEN / Unknown 03/24/2017 6:46 AM CDT 03/24/2017 6:49 AM CDT us Generic Conversion Md [facility] LABORATORY Final R esult [facility] [place] [address], [place] [phone] * (ABNORMAL) CBC W/DIFF AUTOMATED (03/24/2017 6:46 AM CDT) WBC 7.1 4.8 - 10.8 x10'3/uL 03/24/2017 7:30 AM CDT [facility] RBC 4.49(L) 4.70 - 6.10 x10'6/uL 03/24/2017 7:30 AM CDT [facility] HGB 14.4 14.0 - 18.0 G/DL 03/24/2017 7:30 AM CDT [facility] HCT 42.1(L) 43.0 - 54.0 % 03/24/2017 7:30 AM CDT [facility] MCV 93.8 80.0 - 94.0 FL 03/24/2017 7:30 AM CDT [facility] MCH 32.1(H) 27.0 - 31.0 PG 03/24/2017 7:30 AM CDT [facility] MCHC 34.2 32.0 - 36.0 G/DL 03/24/2017 7:30 AM CDT [facility] RDW 11.7 11.5 - 14.5 % 03/24/2017 7:30 AM CDT [facility] PLT 167 130 - 400 x10'3/uL 03/24/2017 7:30 AM CDT [facility] MPV 11.4 9.3 - 12.2 FL 03/24/2017 7:30 AM CDT [facility] IMMATURE GRANS % 0.3 0.0 - 1.0 % 03/24/2017 7:30 AM CDT [facility] NEUTROPHILS % 58.2 43.0 - 65.0 % 03/24/2017 7:30 AM CDT [facility] LYMPHOCYTES % 29.9 20.0 - 46.0 % 03/24/2017 7:30 AM CDT [facility] MONOCYTES % 8.5 5.0 - 12.0 % 03/24/2017 7:30 AM CDT [facility] EOSINOPHILS 2.7 1.0 - 3.0 % 03/24/2017 7:30 AM CDT [facility] BASOPHILS 0.4 0.0 - 1.0 % 03/24/2017 7:30 AM CDT [facility] WHOLE BLOOD SPECIMEN / Unknown 03/24/2017 6:46 AM CDT 03/24/2017 6:49 AM CDT us Generic Conversion Md [facility] LABORATORY Final R esult [facility] [place] [address], [place] [phone] * BASIC METABOLIC PANEL (03/24/2017 6:46 AM CDT) GLUCOSE 97 70 - 99 mg/dL 03/24/2017 7:43 AM CDT [facility] BUN 8 8 - 23 mg/dL 03/24/2017 7:43 AM CDT [facility] CREATININE S/P/B 0.73 0.70 - 1.20 mg/dL 03/24/2017 7:43 AM CDT [facility] SODIUM S/P/B 138 136 - 145 mmol/L 03/24/2017 7:43 AM CDT [facility] POTASSIUM S/P/B 3.6 3.5 - 5.1 mmol/L 03/24/2017 7:43 AM CDT [facility] CHLORIDE S/P/B 103 98 - 107 mmol/L 03/24/2017 7:43 AM CDT [facility] CO2 24 22 - 29 mmol/L 03/24/2017 7:43 AM CDT [facility] CALCIUM S/P/B 8.6 8.6 - 10.2 mg/dL 03/24/2017 7:43 AM CDT [facility] ANION GAP 15 8 - 20 03/24/2017 7:43 AM CDT [facility] EGFR NON-AFR. AMER. >60 >60 mL/min/1.7 3m'2 03/24/2017 7:43 AM CDT [facility] EGFR AFR. AMER. >60 >60 mL/min/1.7 3m'2 03/24/2017 7:43 AM CDT [facility] Comment: NOTE: eGFR is not calculated for patients <18 years of age. This is an estimated GFR (CKD EPI) and should not be used for calculating drug doses. 03/24/2017 6:46 AM CDT 03/24/2017 6:49 AM CDT us Generic Conversion Md [facility] LAB[facility]ATORY Final R esult [facility] [place] [address], * (ABNORMAL) CK (CPK) (03/24/2017 6:46 AM CDT) CPK 346(H) 39 - 308 U/L 03/24/2017 7:46 AM CDT [facility] SERUM OR PLASMA SPECIMEN / Unknown 03/24/2017 6:46 AM CDT 03/24/2017 6:49 AM CDT us Generic Conversion Md [facility] Final R madison [facility] [place] [place] [address], * TROPONIN, QUANT (03/24/2017 2:37 AM CDT) TROPONIN I <0.30 <0.30 ng/mL 03/24/2017 3:02 AM CDT [facility] SERUM OR PLASMA SPECIMEN / Unknown 03/24/2017 2:37 AM CDT 03/24/2017 2:38 AM CDT us Generic Conversion Md [facility]AT[facility] Final R esamirah Performing Organization Address City/[facility]/ZIP Co de Phone Number [facility] [place] [address], * TROPONIN, QUANT (03/24/2017 12:20 AM CDT) TROPONIN I <0.30 <0.30 ng/mL 03/24/2017 12:48 AM CDT [facility] SERUM OR PLASMA SPECIMEN / Unknown 03/24/2017 12:20 AM CDT 03/24/2017 12:28 AM CDT us Generic Conversion Md [facility] Final R esamirah [facility] [place] [place] [address], * CK (CPK) (03/23/2017 5:05 PM CDT) CPK 224 39 - 308 U/L 03/23/2017 5:45 PM CDT [facility] SERUM OR PLASMA SPECIMEN / Unknown 03/23/2017 5:05 PM CDT 03/23/2017 5:25 PM CDT us Generic Conversion Md [facility] LAB[facility]ATORY Final R esult [facility] [place] [address], [place] [phone] * (ABNORMAL) COMPREHENSIVE METABOLIC PANEL (03/23/2017 5:05 PM CDT) GLUCOSE 140(H) 70 - 99 mg/dL 03/23/2017 5:45 PM CDT [facility] BUN 10 8 - 23 mg/dL 03/23/2017 5:45 PM CDT [facility] CREATININE S/P/B 0.69(L) 0.70 - 1.20 mg/dL 03/23/2017 5:45 PM CDT [facility] SODIUM S/P/B 142 136 - 145 mmol/L 03/23/2017 5:45 PM CDT [facility] POTASSIUM S/P/B 3.7 3.5 - 5.1 mmol/L 03/23/2017 5:45 PM CDT [facility] CHLORIDE S/P/B 104 98 - 107 mmol/L 03/23/2017 5:45 PM CDT [facility] CO2 24 22 - 29 mmol/L 03/23/2017 5:45 PM CDT [facility] BILIRUBIN TOTAL S/P/B 0.3 0.2 - 1.2 mg/dL 03/23/2017 5:45 PM CDT [facility] CALCIUM S/P/B 9.6 8.6 - 10.2 mg/dL 03/23/2017 5:45 PM CDT [facility] ALKALINE PHOSPHATASE S/P/B 89 40 - 129 U/L 03/23/2017 5:45 PM CDT [facility] AST 19 0 - 40 U/L 03/23/2017 5:45 PM CDT [facility] TOTAL PROTEIN S/P/B 7.7 6.4 - 8.3 g/dL 03/23/2017 5:45 PM CDT [facility] ALBUMIN S/P/B 4.8 3.5 - 5.2 g/dL 03/23/2017 5:45 PM CDT [facility] ALT 15 0 - 41 U/L 03/23/2017 5:45 PM CDT [facility] GLOBULIN 2.9 2.3 - 3.6 g/dL 03/23/2017 5:45 PM CDT [facility] A/G RATIO 1.7 1.0 - 2.0 03/23/2017 5:45 PM CDT [facility] ANION GAP 18 8 - 20 03/23/2017 5:45 PM CDT [facility] EGFR NON-AFR. AMER. >60 >60 mL/min/1.7 [facility] 03/23/2017 5:45 PM CDT [facility] EGFR AFR. AMER. >60 >60 mL/min/1.7 [facility] 03/23/2017 5:45 PM CDT [facility] Comment: NOTE: eGFR is not calculated for patients <18 years of age. This is an estimated GFR (CKD EPI) and should not be used for calculating drug doses. 03/23/2017 5:05 PM CDT 03/23/2017 5:25 PM CDT us Generic Conversion Md [facility]AT[facility] Final R esult [facility] [place] [address], [place] [phone] * (ABNORMAL) CBC W/DIFF AUTOMATED (03/23/2017 5:05 PM CDT) WBC 7.9 4.8 - 10.8 x10'3/uL 03/23/2017 5:28 PM CDT [facility] RBC 4.93 4.70 - 6.10 x10'6/uL 03/23/2017 5:28 PM CDT [facility] HGB 15.9 14.0 - 18.0 G/DL 03/23/2017 5:28 PM CDT [facility] HCT 45.5 43.0 - 54.0 % 03/23/2017 5:28 PM CDT [facility] MCV 92.3 80.0 - 94.0 FL 03/23/2017 5:28 PM CDT [facility] MCH 32.3(H) 27.0 - 31.0 PG 03/23/2017 5:28 PM CDT [facility] MCHC 34.9 32.0 - 36.0 G/DL 03/23/2017 5:28 PM CDT [facility] RDW 11.8 11.5 - 14.5 % 03/23/2017 5:28 PM CDT [facility] PLT 179 130 - 400 x10'3/uL 03/23/2017 5:28 PM CDT [facility] MPV 10.8 9.3 - 12.2 FL 03/23/2017 5:28 PM CDT [facility] IMMATURE GRANS % 0.1 0.0 - 1.0 % 03/23/2017 5:28 PM CDT [facility] NEUTROPHILS % 61.9 43.0 - 65.0 % 03/23/2017 5:28 PM CDT [facility] LYMPHOCYTES % 29.0 20.0 - 46.0 % 03/23/2017 5:28 PM CDT [facility] MONOCYTES % 6.5 5.0 - 12.0 % 03/23/2017 5:28 PM CDT [facility] EOSINOPHILS 2.2 1.0 - 3.0 % 03/23/2017 5:28 PM CDT [facility] BASOPHILS 0.3 0.0 - 1.0 % 03/23/2017 5:28 PM CDT [facility] WHOLE BLOOD SPECIMEN / Unknown 03/23/2017 5:05 PM CDT 03/23/2017 5:25 PM CDT us Generic Conversion Md [facility] Final R esult [facility] [place] [address], [place] [phone] * ETHANOL (03/23/2017 5:05 PM CDT) ALCOHOL S/P/B <0.010 <0.010 % 03/23/2017 5:45 PM CDT [facility] SERUM OR PLASMA SPECIMEN / Unknown 03/23/2017 5:05 PM CDT 03/23/2017 5:25 PM CDT us Generic Conversion Md [facility] LAB[facility]AT[facility] Final R esult [facility] [place] [address], [place] [phone] documented in this encounter Visit Diagnoses Diagnosis Epilepsy without status epilepticus, not intractable ([facility] Unspecified epilepsy without mention of intractable epilepsy documented in this encounter Care Teams Detail Supervisor Relationship Specialty Start Date End Date Kayla Porras [place] [address] PCP - General 06/25/16 09/27/18 Frank Toure MD [address] [place] [address] Chivo Technician Automated Equipment CARDIOVASCULAR DISEASE 05/30/16 documented as of this encounter
--- OUTSIDE RECORDS SUMMARY | 2024-06-08 05:53 | XMS_ITS | Encounter Summary ---
Author Organization [facility] Address [address] [place] [address] [place] [address] Care Team Providers Care Water Resource Specialist Name Role Phone Frank Toure MD Unavailable Kayla Porras NP Primary Care Provider [phone] Encounter Details Date Type Department Care Team (Latest Contact Info) Description 08/03/2017 Abstract [facility] Medical [facility] Social History Tobacco Use [...] filedocumented in this encounter Care Teams Water Resource Specialist Relationship Specialty Start Date End Date Kayla [place] [address] PCP - General 06/25/16 09/27/18 Frank Toure MD [address] [place] [address] [employer]ivo Development Representative CARDIOVASCULAR DISEASE 05/30/16 documented as of this encounter
--- OUTSIDE RECORDS SUMMARY | 2024-06-08 05:53 | XMS_ITS | Encounter Summary ---
Author Organization [facility] Address [address] [place] [address] [place] [address] Care Team Providers Care Food Service Helper Name Role Phone Frank Toure MD Unavailable Kayla Porras NP Primary Care Provider [phone] Encounter Details Date Type Department Care Team (Late st Contact Info) Description 08/09/2017 Abstract [facility] Medical Group Family Medicine - [address] [phone] Misael Maradiaga, [address] [place] [phone] Social History Tobacco Use Types Packs/Day Years [...] Sign Reading Time Taken Comments Blood Pressure 133/86 08/09/2017 1:34 PM CDT Pulse 79 08/09/2017 1:34 PM CDT Temperature - - Respiratory Rate - - Oxygen Saturation - - Inhaled Oxygen Concentration - - Weight 64.4 kg (142 lb) 08/09/2017 1:34 PM CDT Height - - Body Mass Index 19.8 06/15/2017 8:24 AM APPRAISAL MANAGER documented in this encounter Functional Status documented as of this encounter Mental Status * Question Answer Entry Date Author Status Because of a physical, mental, or emotional condition, do you have serious difficulty concentrating, remembering, or making decisions? No 08/28/2017 2:38 PM CDT Loraine Staley RN A ctive documented in this encounter Progress Notes * Misael Kandi Maradiaga, DO - 08/09/2017 1:20 PM CDT Chief Complaint 57 year old male here for follow up visit on medications. History of Present Illness pt wishes to discuss the last forms of paperwork with him He states he disagrees with the mental capacity portion he states he easily gets confused is not good with money, unable to pay his pills he often forgets these types of monthly tasks he will also forget to take out his trash Review of systems General: denies any fevers, chills. Gastrointestinal: Patient denies any nausea, vomiting, diarrhea or constipation Cardiovascular: Patient denies Chest pain, shortness of breath. Physical Exam General: Well-developed, well-nourished, in no acute distress.Uses walker for ambulation Eyes: Conjunctiva and lids: no swelling, erythema or discharge Oropharynx: normal without erythema, edema, exudate or lesions Neck: Supple without adenopathy, trachea midline Lungs: Clear to auscultation bilaterally without wheezing, rhonchi or crackles. No increase work ofbreathing or signs of respiratory distress Heart: Regular rate and rhythm without murmurs, clicks or bruits. Abdomen: Nondistended, Nontender. Extremities: No clubbing, cyanosis, or edema noted. Psych: Normal mood, normal affect Active Problems [...] hepatitis C screening test (V73.89) (Z11.59) 14. Screening for colon cancer (V76.51) (Z12.11) 15. Screening PSA (prostate specific antigen) (V76.44) (Z12.5) 16. Seizures (780.39) (R56.9) Past Medical History 1. History of Elevated CK (790.5) (R74.8) 2. History of colonic polyps (V12.72) (Z86.010) 3. History of stroke (V12.54) (Z86.73) Surgical History 1. History of Colonoscopy ?? 11/22/16: [facility] (3 small polyps removed) 2. History of Esophagogastroduodenoscopy ?? 11/22/16: [facility] (antral erosion, mild duodenal bulb erythema) 3. [...] 500 MG CAPS; TAKE CAPSULE PRN; Therapy: (Recorded:69Gps9941) to Recorded 2. AmLODIPine Besylate 5 MG Oral Tablet; TAKE 1 TABLET DAILY DIRECTED Requested for: 25Mar2017; Last Rx:25Mar2017 Ordered 3. Aspirin 81 MG Oral Tablet Delayed Release; TAKE 1 TABLET DAILY DIRECTED; Therapy: 28Jun2016 to (Evaluate:07Jun2017) Requested for: 09Nov2016; Last Rx:09Nov2016 Ordered 4. Atorvastatin Calcium 40 MG Oral Tablet; TAKE 1 TABLET ONCE EVERY DAY AT BEDTIME (TO LOWER CHOLESTEROL); Therapy: 25Hwo1461 to (Evaluate:07Jun2017) Requested for: 09Nov2016; Last Rx:09Nov2016 Ordered 5. BusPIRone HCl - 10 MG Oral Tablet; Therapy: 17Nov2016 to Recorded 6. Gabapentin 300 MG Oral Capsule; TK 1 C PO BID; Therapy: 01Mar2017 to Recorded 7. LevETIRAcetam 1000 MG Oral Tablet; TK 1 T PO BID; Therapy: 63Lhr7805 to Recorded 8. LevETIRAcetam 500 MG Oral Tablet; TAKE 3 TABLETS TWICE DAILY; Therapy: 30Yen8143 to (Evaluate:86Ymt6278) Requested for: 22Add3023; Last Rx:62Muu6517 Ordered 9. Metoprolol Succinate ER 25 MG Oral Tablet Extended Release 24 Hour; TAKE 1 TABLET DAILY; Therapy: 55Pgx5944 to (Evaluate:09Aug2017) Recorded 10. Tamsulosin HCl - 0.4 MG Oral Capsule; Take 1 cap daily Requested for: 19Nov2016; Last Rx:19Nov2016 Ordered 11. Vitamin B-1 100 MG Oral Tablet; TAKE 1 TABLET BY MOUTH DAILY DIRECTED; Therapy: 37Jqk4131 to (Evaluate:18Aug2017) Requested for: 36Dqp4338; Last Rx:40Ycs2332 Ordered 12. Vitamin B1 100 MG TABS; TAKE 1 TABLET DAILY DIRECTED; Therapy: 87Hae1862 to (Evaluate:24Mvq0074) Requested for: 69Jao5103; Last Rx:26Jkk7814 Ordered Allergies 1. No Known Drug Allergies Immunizations Influenza --- Series1: 23-Jun-2016; Series2: 15-Jun-2017 PPSV --- Series1: 13-Aug-2015 Tdap --- Series1: 23-Mar-2017 Vitals Recorded: 09Aug2017 01:34PM Temperature 97.9 F Heart Rate 79 Respiration 16 Systolic 133 Diastolic 86 O2 Saturation 99 Weight 142 lb BMI Calculated 19.81 BSA Calculated 1.82 Assessment 1. Disability examination (V68.01) (Z02.71) Discussion/Summary will update forms to show the above information regarding cognition Signatures Electronically signed by : Misael Maradiaga D.O.; Aug 09 2017 3:46PM APPRAISAL MANAGER (Author) documented in this encounter Plan of Treatment Not on file documented as of this encounter Visit Diagnoses Not on filedocumented in this encounter Care Teams Food Service Helper Relationship Specialty Start Date End Date Kay[place] [address] PCP - General 06/25/16 09/27/18 Frank Toure MD [address] [place] [address] [employer] CARDIOVASCULAR DISEASE 05/30/16 documented as of this encounter
--- OUTSIDE RECORDS SUMMARY | 2024-06-08 05:53 | XMS_ITS | Encounter Summary ---
Author Organization [facility] - [facility] Address [address] [facility]. [place], [place] [address] [place] [address] Care Team Providers Care Criminal Investigator Customs Name Role Phone Frank Toure MD Unavailable Kayla Porras NP Primary Care Provider [phone] Encounter Details Date Type Department Care Team (Latest Contact Info) Description 08/28/2017 Abstract [facility] Medical Group , Jerica Cordon MD Social [...] have serious difficulty walking or climbing stairs? No 08/28/2017 2:38 PM Loraine Liao RN Activ e Do you have difficulty dressing or bathing? No 08/28/2017 2:38 PM Loraine Liao RN A ctive Because of a physical, mental, or emotional condition, do you have difficulty doing errands alone such as visiting a doctor's office or shopping? No 08/28/2017 2:38 PM Loraine Liao RN Active * RETIRED Are you deaf or do [...] PM KASIT Loraine Staley RN Active * Do you [...] or making decisions? No 08/28/2017 2:38 PM Loraine Liao RN A ctive * Because of a physical, mental, or emotional condition, do you have serious difficulty concentrating, remembering, or making decisions? Answer Entry Date Author Status No 08/28/2017 2:38 PM Loraine Liao RN Active documented in this encounter Procedure Notes * Kayla Porras, BOUCHRA - 08/26/2017 8:05 [place] [address] Patient Name: BI TABOR Date of : 1960 Med Rec #: [id number] Date of Service: 08/28/2017 Disch Date: 08/28/2017 REFERRED BY: Joao Hancock MD CLINICAL HISTORY: Seizure disorder. LOG NUMBER: [id number] This is a routine 20-channel digital EEG. The background consisted of well-formed 8-9 Hz alpha activity. The record is symmetrical with no focal or proximal features. Hyperventilation and photic stimulation revealed no abnormality. IMPRESSION: Normal record. #[id number] / Signed by: JOAO HANCOCK 08/29/2017 11:24 AM documented in this encounter Plan of Treatment Not on file documented as of this encounter Visit Diagnoses Not on filedocumented in this encounter Care Teams Criminal Investigator Customs Relationship Specialty Start Date End Date Kay[place] [address] PCP - General 06/25/16 09/27/18 Frank Toure MD [address] [place] [address] [employer] Lab Tech CARDIOVASCULAR DISEASE 05/30/16 documented as of this encounter
--- OUTSIDE RECORDS SUMMARY | 2024-06-08 05:53 | XMS_ITS | Encounter Summary ---
Author Organization [facility] - [facility] Address [address] [facility] [place] [address] [place] [address] Care Team Providers Care Extension Worker Name Role Phone Frank Toure MD Unavailable Kayla Porras NP Primary Care Provider [phone] Encounter Details Date Type Department Care Team (Latest Contact Info) Description 03/23/2017 Abstract [facility] Medical Group Social History Tobacco Use Types [...] on filedocumented in this encounter Care Teams Extension Worker Relationship Specialty Start Date End Date Kay[place] [address] PCP - General 06/25/16 09/27/18 Frank Toure MD [address] [place] [address] [employer] Dough Mixer Helper CARDIOVASCULAR DISEASE 05/30/16 documented as of this encounter
--- OUTSIDE RECORDS SUMMARY | 2024-06-08 05:53 | XMS_ITS | Encounter Summary ---
Author Organization [facility] - [facility] Address [address] [place] [address] [place] [address] Care Team Providers Care Plastics Scientist Name Role Phone Frank Toure MD Unavailable Kayla Porras NP Primary Care Provider [phone] Encounter Details Date Type Department Care Team (Late st Contact Info) Description 11/22/2016 Abstract [facility] Medical Group Multispecialty Care - [facility] [address] [place] [address] Mark Devine MD [address] [place] [address] Social History Tobacco Use Types Packs/Day Years [...] Comments COLONOSCOPY Routine 11/22/2016 12:00 AM CDT documented in this encounter Results * Colonoscopy (11/22/2016 12:00 AM CDT) 11/22/2016 11/22/2016 Narrative [facility] TO EPIC CONVERSION - 11/22/2016 12:00 AM CDT Documented hx of procedure Procedure Note Jerica Olsen MD - 04/02/2018 Documented hx of procedure Generic Conversion Md OLSEN GI PROCEDURE ORDERABLES Final Result [facility] TO [facility] CONVERSION documented in this encounter Visit Diagnoses Not on filedocumented in this encounter Care Teams Plastics Scientist Relationship Specialty Start Date End Date Kayla Porras [place] [address] [place] [address] PCP - General 06/25/16 09/27/18 Frank Toure MD [address] [place] [address] [employer] Mig Welder CARDIOVASCULAR DISEASE 05/30/16 documented as of this encounter
--- OUTSIDE RECORDS SUMMARY | 2024-06-08 05:53 | XMS_ITS | Encounter Summary ---
Author Organization [facility] Address [address] [facility] [address] [place] [address] Care Team Providers Care Ethnic Studies Professor Name Role Phone Frank Toure MD Unavailable Kayla Porras NP Primary Care Provider [phone] Encounter Details Date Type Department Care Team (Late st Contact Info) Description 07/05/2017 Abstract [facility] Medical Group Family Medicine - [address] [phone] Misael Maradiaga, [address] [place] [phone] Social History Tobacco Use Types Packs/Day Years [...] Sign Reading Time Taken Comments Blood Pressure 127/81 07/05/2017 2:59 PM LEAD INGOT MOLDER Pulse 73 07/05/2017 2:59 PM LEAD INGOT MOLDER Temperature - - Respiratory Rate - - Oxygen Saturation - - Inhaled Oxygen Concentration - - Weight 62.6 kg (138 lb) 07/05/2017 2:59 PM LEAD INGOT MOLDER Height - - Body Mass Index 19.25 06/15/2017 8:24 AM LEAD INGOT MOLDER documented in this encounter Functional Status documented as of this encounter Mental Status * Question Answer Entry Date Author Status Because of a physical, mental, or emotional condition, do you have serious difficulty concentrating, remembering, or making decisions? No 08/28/2017 2:38 PM CDT Loraine Staley RN A ctive documented in this encounter Progress Notes * Misael Chau Hiren, DO - 07/05/2017 3:00 PM CST Reason For Visit Patient is being seen today to fill out paperwork. History of Present Illness He is requesting assistance from [facility] for in home services He has hx of of CVA has left his left side weaker unable to walk without using a walking due to imbalance He has hx of SZ disorder, on sz meds has had PT in the past Has f/u with Dr Hancock next week Has HTN, on BP meds and statin and is tolerating this has been abstinent of etoh x 1 year drugs x 3 years paperwork filled out Review of systems General: denies any fevers, [...] murmurs, clicks or bruits. Abdomen: Nondistended, Nontender. No hepatomegaly or splenomegaly noted on examination. Extremities: No clubbing, cyanosis, or edema noted. Neuro: BUE and BLE mm strength 5/5, though left side is weaker when compared to right Psych: Normal mood, normal affect Active Problems 1. Alcohol abuse (305.00) (F10.10) 2. Dysphagia (787.20) (R13.10) 3. Dysphagia (787.20) (R13.10) 4. Fracture of metatarsal (825.25) (S92.309A) 5. 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 History of CVA (cerebrovascular accident) (V12.54) (Z86.73) 7. Hyperlipidemia (272.4) (E78.5) 8. Hypertension (401.9) (I10) 9. Imbalance (781.2) (R26.89) 10. Influenza vaccine needed (V04.81) (Z23) 11. Low back pain (724.2) (M54.5) 12. Need for hepatitis C screening test (V73.89) (Z11.59) 13. Screening for colon cancer (V76.51) (Z12.11) 14. Screening PSA (prostate specific antigen) (V76.44) (Z12.5) 15. Seizures (780.39) (R56.9) Past Medical History 1. History of Elevated CK (790.5) (R74.8) 2. History of colonic polyps (V12.72) (Z86.010) 3. History of stroke (V12.54) (Z86.73) Surgical History 1. History of Colonoscopy ?? 11/22/16: [facility] (3 small polyps removed) 2. History of Esophagogastroduodenoscopy ?? 11/22/16: [facility] (antral erosion, mild duodenal bulb erythema) 3. [...] 500 MG CAPS; TAKE CAPSULE PRN; Therapy: (Recorded:96Bpu5770) to Recorded 2. AmLODIPine Besylate 5 MG Oral Tablet; TAKE 1 TABLET DAILY DIRECTED Requested for: 25Mar2017; Last Rx:25Mar2017 Ordered 3. Aspirin 81 MG Oral Tablet Delayed Release; TAKE 1 TABLET DAILY DIRECTED; Therapy: 28Jun2016 to (Evaluate:07Jun2017) Requested for: 09Nov2016; Last Rx:09Nov2016 Ordered 4. Atorvastatin Calcium 40 MG Oral Tablet; TAKE 1 TABLET ONCE EVERY DAY AT BEDTIME (TO LOWER CHOLESTEROL); Therapy: 19Ban8760 to (Evaluate:07Jun2017) Requested for: 09Nov2016; Last Rx:09Nov2016 Ordered 5. BusPIRone HCl - 10 MG Oral Tablet; Therapy: 17Nov2016 to Recorded 6. Gabapentin 300 MG Oral Capsule; TK 1 C PO BID; Therapy: 01Mar2017 to Recorded 7. LevETIRAcetam 1000 MG Oral Tablet; TK 1 T PO BID; Therapy: 29Aug2016 to Recorded 8. LevETIRAcetam 500 MG Oral Tablet; TAKE 3 TABLETS TWICE DAILY; Therapy: 41Nvf7152 to (Evaluate:02Tol5411) Requested for: 40Hpz9496; Last Rx:52Hve4644 Ordered 9. Metoprolol Succinate ER 25 MG Oral Tablet Extended Release 24 Hour; TAKE 1 TABLET DAILY; Therapy: 72Dyj8703 to (Evaluate:09Aug2017) Recorded 10. Tamsulosin HCl - 0.4 MG Oral Capsule; Take 1 cap daily Requested for: 19Nov2016; Last Rx:19Nov2016 Ordered 11. Vitamin B-1 100 MG Oral Tablet; TAKE 1 TABLET BY MOUTH DAILY DIRECTED; Therapy: 87Xcu2054 to (Evaluate:55Too6671) Requested for: 20Jun2017; Last Rx:20Jun2017 Ordered 12. Vitamin B1 100 MG TABS; TAKE 1 TABLET DAILY DIRECTED; Therapy: 48Jcn9234 to (Evaluate:42Iws9928) Requested for: 78Emq3489; Last Rx:29Hqh5834 Ordered Allergies 1. No Known Drug Allergies Immunizations Influenza --- Series1: 23-Jun-2016; Series2: 15-Jun-2017 PPSV --- Series1: 13-Aug-2015 Tdap --- Series1: 23-Mar-2017 Vitals Recorded: 05Jul2017 02:59PM Temperature 97.7 F Heart Rate 73 Respiration 16 Systolic 127, LUE, Sitting Diastolic 81, LUE, Sitting O2 Saturation 99 Weight 138 lb BMI Calculated 19.25 BSA Calculated 1.8 Assessment 1. Disability examination (V68.01) (Z02.71) 2. Hypertension (401.9) (I10) 3. History of CVA (cerebrovascular accident) (V12.54) (Z86.73) 4. Imbalance (781.2) (R26.89) Discussion/Summary form filled out exam done today see scanned into chart f/u prn HTN controlled cont meds SZ d/o on keppra now f/u with Dr Santi delgado emds imbalance stable using walker has been to PT Hx of CVA on statin, asa BP is controlled congratulated on staying off drugs and alcohol f/u prn Signatures Electronically signed by : Misael Maradiaga D.O.; Jul 05 2017 3:36PM LEAD INGOT MOLDER (Author) documented in this encounter Plan of Treatment Not on file documented as of this encounter Visit Diagnoses Not on filedocumented in this encounter Care Teams Ethnic Studies Professor Relationship Specialty Start Date End Date Kayla [place] [address] PCP - General 06/25/16 09/27/18 Frank Toure MD [address] [place] [address] [employer] Load Builder CARDIOVASCULAR DISEASE 05/30/16 documented as of this encounter
--- OUTSIDE RECORDS SUMMARY | 2024-06-08 05:53 | XMS_ITS | Encounter Summary ---
Author Organization [facility] - [facility] Address [address] [facility] [place], [place] [address] [place] [address] Care Team Providers Care Clinical Research Technician Name Role Phone Frank Toure MD Unavailable Kayla Porras NP Primary Care Provider [phone] Encounter Details Date Type Department Care Team (Latest Contact Info) Description 08/26/2017 Abstract [facility] Medical Group , Jerica Cordon MD [...] RN A ctive documented in this encounter Consult Notes * Kayla Porras NP - 08/26/2017 11:08 [place] [address] Patient Name: BI TABOR Date of : 1960 Med Rec #: [id number] Date of Service: 08/26/2017 Disch Date: REFERRED BY: Aron Buckley MD I saw, Bi Tabor, today on August 26, 2017 for breakthrough seizure. Yesterday, I increased the Keppra to 1750 mg b.i.d. and he has no side effects. He is alert. His EEG revealed no seizure activity. He has history of right-sided weakness which is old. He walks with a walker. We will increase the dose of Keppra to 2 grams b.i.d. and I am not considering Dilantin because of his markedly unsteady gait. Disposition as per you. Thank you for the consult. #[id number] / Signed by: JOAO CRAWFORD 08/27/2017 11:54 AM documented in this encounter Plan of Treatment Not on file documented as of this encounter Visit Diagnoses Not on filedocumented in this encounter Care Teams Clinical Research Technician Relationship Specialty Start Date End [place] [address] PCP - General 06/25/16 09/27/18 Frank Toure MD [address] [place] [address] [place] Supervisor Shellfish Farming CARDIOVASCULAR DISEASE 05/30/16 documented as of this encounter
--- OUTSIDE RECORDS SUMMARY | 2024-06-08 05:53 | XMS_ITS | Encounter Summary ---
Author Organization [facility] Address [address] [facility]. [place], [place] [address] [place] [address] Care Team Providers Care Top And Seat Cover Fitter Name Role Phone Frank Toure MD Unavailable Kayla Porras NP Primary Care Provider [phone] Encounter Details Date Type Department Care Team (Latest Contact Info) Description 08/15/2017 Abstract [facility] Medical Group Misael Maradiaga, DO [address] [phone] Social History Tobacco Use Types [...] on filedocumented in this encounter Care Teams Top And Seat Cover Fitter Relationship Specialty Start Date End Date Kayla Porras NP [address] [place] [address] PCP - General 06/25/16 09/27/18 Frank Toure MD [address] [place] [address] [employer] Real Estate Processor CARDIOVASCULAR DISEASE 05/30/16 documented as of this encounter
--- OUTSIDE RECORDS SUMMARY | 2024-06-08 05:53 | XMS_ITS | Encounter Summary ---
Author Organization [facility] Address [address] [facility]. [place], [place] [address] [place] [address] Care Team Providers Care Merchandising Professor Name Role Phone Frank Toure MD Unavailable Kayla Porras NP Primary Care Provider [phone] Encounter Details Date Type Department Care Team (Latest Contact Info) Description 08/24/2017 Abstract [facility] Medical Group Misael Maradiaga, DO [address] [phone] Social History Tobacco Use Types [...] on filedocumented in this encounter Care Teams Merchandising Professor Relationship Specialty Start Date End Date Kayla Porras NP [address] [place] [address] PCP - General 06/25/16 09/27/18 Frank Toure MD [address] [place] [address] [employer]ivo Early Interventionist CARDIOVASCULAR DISEASE 05/30/16 documented as of this encounter
--- OUTSIDE RECORDS SUMMARY | 2024-06-08 05:53 | XMS_ITS | Encounter Summary ---
Author Organization [facility] Address [address] [facility]. [place], [place] [address] [place] [address] Care Team Providers Care Return To Vendor Name Role Phone Frank Toure MD Unavailable Kayla Porras NP Primary Care Provider [phone] Encounter Details Date Type Department Care Team (Latest Contact Info) Description 08/25/2017 Abstract [facility] Medical Group , Jerica Cordon [...] Notes * Kayla Porras NP - 08/26/2017 4:17 [place] [address] Patient Name: BI TABOR Date of : 1960 Med Rec #: [id number] Date of Service: 08/25/2017 Disch Date: REFERRED BY: Lupillo Rodriguez MD HISTORY OF PRESENT ILLNESS: I saw patient Bi Tabor who is transferred from [facility] for seizure. Patient is mentally challenged and his seizures are for long time and he states he takes medicine regularly Keppra 500 mg 3 in the morning and evening. He is taking Gabapentin 300 mg t.i.d. He states he has seizure every month or so. He does not know what brings it on. Apparently, he had one seizure yesterday on the transit and one in the ER and he was found unresponsive at home. He was taken to [facility] from there. They transferred him here because they do not have a neurologist. Initially, the ER physician there thought he is getting Keppra 500 mg b.i.d., but now it appears that he is taking 1.5 gram b.i.d. or 500 mg 3 b.i.d. He denies any headache or dizziness. He has some left-sided weakness, which is mild in the left arm about 4/5, left leg 3+/5. He told me he walks with a walker and lives alone. IMPRESSION: Breakthrough seizures. We will increase dose of Keppra to 1750 mg b.i.d. We will check the EEG. We will check his gait as well. Depending upon EEG and his gait, we may consider switching over from Keppra to Dilantin. Thank you for the consult. #[id number] / Signed by: JOAO CRAWFORD 08/26/2017 11:49 AM documented in this encounter Plan of Treatment Not on file documented as of this encounter Visit Diagnoses Not on filedocumented in this encounter Care Teams Return To Vendor Relationship Specialty Start Date End Date Kayla Porras [place] [address] PCP - General 06/25/16 09/27/18 Frank Toure MD [address] [place] [address] [place] Scoreboard Operator CARDIOVASCULAR DISEASE 05/30/16 documented as of this encounter
--- OUTSIDE RECORDS SUMMARY | 2024-06-08 05:53 | XMS_ITS | Encounter Summary ---
Author Organization [facility] Address [address] [facility]. [place], [place] [id number] [place] [id number] Care Team Providers Care Chicken Handler Name Role Phone Frank Toure MD Unavailable Kayla Porras NP Primary Care Provider [phone] Encounter Details Date Type Department Care Team (Latest Contact Info) Description 10/13/2017 Abstract [facility] Misael Maradiaga, DO [address] [phone] Social History Tobacco Use Types [...] on filedocumented in this encounter Care Teams Chicken Handler Relationship Specialty Start Date End Date Kayla Porras [place] [address] PCP - General 06/25/16 09/27/18 Frank Toure MD [address] [place] [id number] [place] Supervisor [place] [employer] CARDIOVASCULAR DISEASE 05/30/16 documented as of this encounter
--- OUTSIDE RECORDS SUMMARY | 2024-06-08 05:53 | XMS_ITS | Encounter Summary ---
Author Organization [facility] Address [address] [facility] [place] [address] [place] [address] Care Team Providers Care Third Rail Installer Name Role Phone Frank Toure MD Unavailable Kayla Porras NP Primary Care Provider [phone] Encounter Details Date Type Department Care Team (Late st Contact Info) Description 09/02/2017 Hospital Follow-up Call [facility] Telemetry [address] [place], [place] [id number] Kelsy Edmond RN Social History Tobacco Use Types Packs/Day [...] on filedocumented in this encounter Care Teams Third Rail Installer Relationship Specialty Start Date End Date [place] [address] PCP - General 06/25/16 09/27/18 Frank Toure MD [address] [place] [id number] [place] P[place] Driver Engineer CARDIOVASCULAR DISEASE 05/30/16 documented as of this encounter
--- OUTSIDE RECORDS SUMMARY | 2024-06-08 05:53 | XMS_ITS | Encounter Summary ---
Author Organization [facility] Address [address] [place] [address] [place] [address] Care Team Providers Care Dyeing Machine Feeder Name Role Phone Frank Toure MD Unavailable Porter Porras NP Primary Care Provider [phone] Reason for Referral * (Emergency) - Closed Specialty Diagnoses / Procedures Referred By Contac t Referred To Contact Procedures CT HEAD WO CON Ankur Ramsey DNP [address] [facility] [address] [place] [address] Phone: tel: fax: Referral ID Status Reason Start Date Expiration Date Visits Re quested Visits Authorized [id number] Closed 06/06/2017 07/07/2018 1 1 CTOR TRADE Reason for Visit * Reason Comments Laceration head Encounter Details Date Type Department Care Team (Late st Contact Info) Description 06/06/2017 2:05 PM DIRECTOR TRADE - 06/06/2017 7:27 PM DIRECTOR TRADE Emergency [facility] [place] [address] Jj Damico MD [address] [place] [address] Laceration (head) Discharge Disposition: Home or Self Care (Routine [...] Sign Reading Time Taken Comments Blood Pressure 134/79 06/06/2017 4:15 PM DIRECTOR TRADE Pulse 73 06/06/2017 4:11 PM DIRECTOR TRADE Temperature 36.9 ??C (98.4 ??F) 06/06/2017 1:49 PM CS T Respiratory Rate 16 06/06/2017 4:11 PM DIRECTOR TRADE Oxygen Saturation 99% 06/06/2017 4:15 PM DIRECTOR TRADE Inhaled Oxygen Concentration - - Weight - - Height - - Body Mass Index - - documented in this encounter Discharge Instructions * Discharge Instructions* Jj Damico MD - 06/06/2017 5:52 PM DIRECTOR TRADE Thank you for giving us the opportunity to care for you today. If at any point you are becoming more ill, please call your doctor or return here. You are always welcome back. If you have any questions about this visit, concerns about your symptoms, questions about your medications or other concerns, please give us a call... - Jj Damico M.D., [facility], [facility] - Emergency Medicine Physician ADDITIONAL DISCHARGE INSTRUCTIONS: --Please follow all the instructions that we have discussed or are provided here. --While the tests and exam we have performed in the Emergency Department did not show anything dangerous or life threatening it is important for you to follow up with your doctor for further evaluation of your symptoms. It is also important to return to the ED if your symptoms become worse or you have new or further concerns. -- Please mention to your follow-up physician that you were in the emergency department and requestthat they review your labs and/or imaging to ensure all findings are followed up on. --A note on Radiology: If you had an x-ray, the read is preliminary and you will be called if thereare any further findings on the final read. (Please make sure that you have given registration a working phone number) --Again, it was a pleasure taking care of you. CTOR TRADE * Attachments The following attachments cannot be sent through Care Everywhere. * SEIZURES (SPANISH) * SEIZURES DISCHARGE INSTRUCTIONS, ADULT (SPANISH) * WOUND CARE (SPANISH) * WOUND CARE DISCHARGE INSTRUCTIONS (SPANISH) documented in this encounter Medications at Time of Discharge acetaminophen-cod eine 300-30 MG tablet Take 1 tablet by mouth every 6 (six) hours as needed for Pain. 12 tablet 04/29/2017 09/01/2018 amlodipine 5 MG tablet Take 5 mg by mouth daily. 08/18/2018 aspirin 81 MG chewable tablet Chew 81 mg by mouth daily. 08/21/2018 busPIRone 10 MG tablet 11/17/2016 08/21/2018 gabapentin 300 MG capsule Take 300 mg by mouth 3 (three) times daily. 11/22/2018 levETIRAcetam 1000 MG tablet Take 1,500 mg by mouth 2 (two) times daily. 08/28/2017 metoprolol succinate ER 25 MG 24 hr tablet Take 1 tablet by mouth daily. 02/10/2017 09/01/2018 documented as of this encounter ED Notes * Luisa Ramos RN - 06/06/2017 7:20 PM CST PT GIVEN DISCHARGE INSTRUCTIONS WITH VERBAL UNDERSTANDING. PT AMBULATED TO EXIT WITH ALL BELONGINGSWITH NO DISTRESS CTOR TRADE * Jj Damico MD - 06/06/2017 4:15 PM CST [place], [place] EMERGENCY DEPARTMENT ENCOUNTER HISTORICAL INFORMATION Primary Care Doctor: PORETR PORRAS Patient information was obtained primarily from the patient, nursing notes History/Exam limitations: None Provider at Bedside Date/Time Event User Comments 06/06/17 1604 Provider at Bedside Assessing Patient JJ DAMICO CHIEF COMPLAINT Laceration (head) HPI Mojgan Tabor is a 57-year-old male who presents to the ED reporting he thinks he had a seizure causing him to fall and strike his forehead, he thinks it happened overnight or this AM, he states he can't be too specific about the time, he has a small 4mm laceration on the left medial eyebrow area which is dried and scabbed. He denies headache, no visual changes, no neck or back pain, no chest pain or dyspnea, no palpitations, no abdominal pain, no nausea or vomiting, no new numbness/tingling or motor weakness. The patient reports he has been compliant with all of his medications. PAST MEDICAL HISTORY Past Medical History: Diagnosis Date ??? HLD (hyperlipidemia) ??? Hypertension ??? Seizures ??? Seizures ??? Stroke lt side weakness SURGICAL HISTORY No past surgical history on file. CURRENT MEDICATIONS Current Facility-Administered Medications: ??? Tdap (BOOSTRIX) injection 0.5 mL, 0.5 mL, Intramuscular, Once, Jj Damico MD Current Outpatient Prescriptions: ??? amlodipine 5 MG tablet, Take 5 mg by mouth daily., Disp: , Rfl: ??? aspirin 81 MG chewable tablet, Chew 81 mg by mouth daily., Disp: , Rfl: ??? gabapentin 300 MG capsule, Take 300 mg by mouth 3 (three) times daily., Disp: , Rfl: ??? levETIRAcetam 1000 MG tablet, Take 1,500 mg by mouth 2 (two) times daily., Disp: , Rfl: ??? acetaminophen-codeine 300-30 MG tablet, Take 1 tablet by mouth every 6 (six) hours as needed for Pain., Disp: 12 tablet, Rfl: 0 ALLERGIES No Known Allergies FAMILY HISTORY No family history on file. SOCIAL HISTORY Social History Social History ??? Marital status: Single Spouse name: N/A ??? Number of children: N/A ??? Years of education: N/A Social History Main Topics ??? Smoking status: Current Every Day Smoker ??? Smokeless tobacco: Never Used ??? Alcohol use No ??? Drug use: No ??? Sexual activity: Not Asked Other Topics Concern ??? None Social History Narrative REVIEW OF SYSTEMS Constitutional: Denies fever, chills, weight loss or weakness. Eyes: Denies photophobia or discharge. HENT: Denies sore throat or ear pain. Respiratory: Denies cough or shortness of breath. Cardiovascular: Denies chest pain, palpitations or swelling. GI: Denies abdominal pain, nausea, vomiting, or diarrhea. Musculoskeletal: Denies back pain. Skin: Denies rash. Neurologic: see hpi Endocrine: Denies polyuria or polydypsia. Lymphatic: Denies swollen glands. Psychiatric: Denies depression, suicidal ideation or homicidal ideation. See HPI for further details. All systems negative except as marked. PHYSICAL EXAM VITAL SIGNS: Filed Vitals: 06/06/17 1349 06/06/17 1611 BP: 148/90 134/79 Pulse: 91 73 Resp: 18 16 Temp: 98.4 ??F (36.9 ??C) TempSrc: Oral SpO2: 98% 99% Constitutional: Well developed, Well nourished, No acute [...] noted. Neurologic: Alert & oriented x 3, RUE 5/5, LUE 4/5 RLE 5/5, LLE 4/5, chronic changes with no acute motor/sensory deficit. Psychiatric: Affect normal, Judgment normal, Mood normal. Pulse Oximetry Interpretation Saturation: 98% Oxygen Delivery: ra Interpretation: normal Rhythm Strip Interpretation (interpreted by ED provider) Rhythm: sinus Ventricular Rate: 90bpm EKG (interpreted by ED provider) June 06, 2017 4:47 PM sinus rhythm with a ventricular rate of 69 bpm, early repolarization pattern in the anterior precordial leads which appear similar to prior, no acute ischemic normality, QT/QTc: 380/400. RADIOLOGY I have independently reviewed all imaging for today's visit. Ct Head Wo Con Result Date: 06/06/2017 EXAMINATION: CT of the head EXAM DATE/TIME: 06/06/2017 4:33 PM REASON FOR EXAM:Head trauma, minor, GCS>=13, NOC/NEXUS/CCR neg, first study Head laceration. COMPARISON: 04/29/[address] TECHNIQUE: Axial CT images of the brain are obtained from skull base through vertex without the use of IV contrast agent. Automated exposure control was utilized for dose reduction. FINDINGS: No acute hemorrhage or large territory infarct. Ventricles are moderately enlarged with prominent bilateral sulci indicating moderate parenchymal volume loss. There are minimal areas of scattered hypodensities in the periventricular deep white matter which are nonspecific but likely secondary tomild small vessel ischemic disease. Old infarct right MEDICAL PHYSICS TEACHER distribution. Bilateral basal ganglia oldlacunar infarcts. Benign falcine calcifications. There are no extra-axial fluid collections. There is no mass, mass effect, or midline shift. There is no depressed skull fracture. Visualized paranasal sinuses and mastoid air cells are clear. Visualized orbital contents are unremarkable. Soft tissuedensity subcutaneous nodule in the posterior scalp again noted and stable. ===== IMPRESSION: ===== 1. No convincing acute intracranial abnormalities. 2. Parenchymal atrophy and small vessel ischemic disease. Superimposed acute infarct not excluded. If there is any clinical concern for acute infarct, MRI is recommended. 3. Old lacunar infarcts in the basal ganglia with oldright MEDICAL PHYSICS TEACHER territory infarct as well. Differential diagnosis: Differential diagnostic considerations for altered mental status include overdose accidental, substance abuse, metabolic encephalopathies, traumatic injury, ICH, elevated ICP,sepsis, and withdrawal syndromes. ED COURSE & MEDICAL DECISION MAKING Pertinent Labs & Imaging studies reviewed. (See chart for details) Results for orders placed or performed during the hospital encounter of 06/06/17 CBC W/DIFF AUTOMATED Result Value Ref Range WBC 9.8 4.8 - 10.8 x10'3/uL RBC 4.28 (L) 4.70 - 6.10 x10'6/uL HGB 13.4 (L) 14.0 - 18.0 G/DL HCT 41.4 (L) 43.0 - 54.0 % MCV 96.7 (H) 80.0 - 94.0 FL MCH 31.3 (H) 27.0 - 31.0 PG MCHC 32.4 32.0 - 36.0 G/DL RDW 12.8 11.5 - 14.5 % PLT 242 130 - 400 x10'3/uL MPV 10.7 9.3 - 12.2 FL NEUTROPHILS 62.5 43.0 - 65.0 % LYMPHOCYTES 27.7 20.0 - 46.0 % MONOCYTES 8.7 5.0 - 12.0 % EOSINOPHILS 0.6 (L) 1.0 - 3.0 % BASOPHILS 0.2 0.0 - 1.0 % IMMATURE GRANS 0.3 0.0 - 1.0 % COMPREHENSIVE METABOLIC PANEL Result Value Ref Range GLUCOSE 97 70 - 99 MG/DL BUN 10 7 - 18 MG/DL CREATININE 0.92 0.7 - 1.3 MG/DL SODIUM 142 136 - 145 MMOL/L POTASSIUM 3.8 3.5 - 5.1 MMOL/L CHLORIDE 107 100 - 108 MMOL/L CO2 28.4 21 - 32 MMOL/L CALCIUM 9.2 8.5 - 10.1 MG/DL TOTAL BILIRUBIN 0.8 0.2 - 1.2 MG/DL TOTAL PROTEIN 7.7 6.4 - 8.2 G/DL ALBUMIN 4.2 3.4 - 5.0 G/DL AST 39 (H) 15 - 37 U/L ALT 23 16 - 60 U/L ALK PHOS 87 50 - 136 U/L ANION GAP 10.4 8 - 20 MMOL/L BUN CREATININE RATIO 10.8 6 - 26 A/G RATIO 1.2 1.0 - 2.0 RATIO eGFR Non-Afr. Amer. >60 >60 ML/MIN/1.73 M2 eGFR Afr. Amer. >60 >60 ML/MIN/1.73 M2 PARTIAL THROMBOPLASTIN TIME,PTT Result Value Ref Range PTT 35.8 25.5 - 37.6 SEC PROTIME/INR, VENOUS Result Value Ref Range Protime 13.2 (H) 9.6 - 12.2 SEC INR 1.2 Amount and/or Complexity of Data Reviewed Triage notes and available nursing notes reviewed Clinical lab tests: ordered and reviewed Tests in the radiology section: ordered and reviewed Independent visualization of images, tracings: yes Decide to obtain previous medical records or to obtain history from someone other than the patient:yes Review and summarize past medical records: yes Discuss the patient with other providers: yes FINAL IMPRESSION 1. Eyebrow laceration 2. Seizure 2. Seizure disorder Discharge home, con't current medications, local wound care, outpt f/u. Jj Damico M.D., [facility] Emergency Medicine Physician Jj Damico MD 06/06/17 6811 CTOR TRADE * Luisa Ramos RN - 06/06/2017 4:07 PM CST Pt presents to er with c/o having a seizure this am pt states he doesn't remember falling but woke up on floor, pt has hx of seizures, pt states he has appt With neurology on , CTOR TRADE * Ankur Ramsey DNP - 06/06/2017 3:40 PM CST [place], [place] EMERGENCY DEPARTMENT ENCOUNTER Medical Screening Examination 06/06/17 3:40 PM Chief Complaint : Laceration (head) HPI : Mojgan Tabor is a 57-year-old male who presents c/o possible seizure and falling out of bedstriking head. Hx epilepsy. Laceration forehead. Denies pain or other sx at this time. Vital Signs: Filed Vitals: 06/06/17 1349 BP: 148/90 Pulse: 91 Resp: 18 Temp: 98.4 ??F (36.9 ??C) TempSrc: Oral SpO2: 98% Physical exam: A brief physical exam was completed to facilitate/expedite patient care. Robert findings include: Alert and appears in NAD. Approx 1 x 1 cm laceration to forehead. No bleedingnoted at this time. Plan: Labs & Imaging was ordered to facilitate patient care. Ankur Ramsey DNP 06/06/17 1542 CTOR TRADE * Ana Angeles RN - 06/06/2017 2:07 PM CST Pt to triage with c/o head laceration after waking up on the floor. Pt states he has a hx of seizures and feels like he had a seizure this morning which made him fall out of bed and hit his head. Pt has laceration to forehead, no bleeding noted at this time. Swelling noted to forehead. Pt denies pain. CTOR TRADE documented in this encounter Plan of Treatment Not on file documented as of this encounter Procedures Procedure Name Priority Date/Time Associated Diagnosis Comments ECG 12-LEAD STAT 06/07/2017 9:05 AM DIRECTOR TRADE DRUG SCREEN RAPID STAT 06/06/2017 4:5 5 PM DIRECTOR TRADE PARTIAL THROMBOPLASTIN TIME,PTT STAT 06/06/2017 4:55 PM DIRECTOR TRADE PROTHROMBIN TIME, VENOUS STAT 06/06/2017 4:55 PM DIRECTOR TRADE COMPREHENSIVE METABOLIC PANEL STAT 06/06/2017 4:55 PM DIRECTOR TRADE CBC W/DIFF AUTOMATED STAT 06/06/2017 4:55 PM DIRECTOR TRADE URINALYSIS WI REFLEX TO CULTURE STAT 06/06/2017 4:[address] HEAD WO CON STAT 06/06/2017 4:34 PM DIRECTOR TRADE documented in this encounter Results * ECG 12 lead (06/07/2017 9:05 AM DIRECTOR TRADE) 06/07/2017 9:05 AM DIRECTOR TRADE Narrative [facility] - 06/07/2017 9:05 AM DIRECTOR TRADE ?[facility] ? [address] [place] ? Test Date: ?2017-06-06 Pat Name: ? MOJGAN TABOR ? Department: ?? 41 ? Room: ? EXAM19 Gender: ? Male ? Ginseng Farmer: ?? JE : ?1960 ? Requested By: JJ DAMICO Order Number: [id number] ? Reading MD: ?? Eliseo Royal ? Measurements Intervals ?Gary ? Rate: ? 69 ? P: ?90 NM: ? 167 ?QRS: ?46 QRSD: ? 91 ? T: ?70 QT: ? 380 ? QTc: ?410 ? Interpretive Statements SINUS RHYTHM MINIMAL VOLTAGE CRITERIA FOR LVH, CONSIDER NORMAL VARIANT ANTEROSEPTAL MYOCARDIAL INFARCTION, POSSIBLY ACUTE ACUTE MA Compared to ECG 03/23/2017 23:56:09 No significant changes CTOR TRADE Procedure Note Eliseo Paige MD - 06/07/[address] Test Date: 2017-06-06 Pat Name: MOJGAN TABOR Department: 41 Room: [facility] Gender: Male Ginseng Farmer: REBEKAH : 1960 Requested By: JJ DAMICO Order Number: [id number] Reading MD: Eliseo Paige Measurements Intervals Gary Rate: 69 P: 90 NM: 167 QRS: 46 QRSD: 91 T: 70 QT: 380 QTc: 410 Interpretive Statements SINUS RHYTHM MINIMAL VOLTAGE CRITERIA FOR LVH, CONSIDER NORMAL VARIANT ANTEROSEPTAL MYOCARDIAL INFARCTION, POSSIBLY ACUTE ACUTE MA Compared to ECG 03/23/2017 23:56:09 No significant changes CTOR TRADE us Jj Damico MD ECG ORDERABLES Final Resu lt [facility] * DRUG SCREEN RAPID (06/06/2017 4:55 PM DIRECTOR TRADE) AMPHETAMINE (U) NEGATIVE NEGATIVE 8 6:38 PM DIRECTOR TRADE [facility] BARBITURATES SCREEN (U) NEGATIVE NEGATIVE 06/06/2017 6:38 PM DIRECTOR TRADE [facility] BENZODIAZEPINES SCREEN (U) NEGATIVE NEGATIVE 06/06/2017 6:38 PM DIRECTOR TRADE [facility] CANNABINOIDS SCREEN (U) NEGATIVE NEGATIVE 06/06/2017 6:38 PM [facility] COCAINE METABOLITES (U) NEGATIVE NEGATIVE 06/06/2017 6:38 PM [facility] METHADONE (U) NEGATIVE NEGATIVE 06/06/2017 6:38 PM [facility] OPIATE SCREEN (U) NEGATIVE NEGATIVE 018 6:38 PM [facility] PHENCYCLIDINE PCP (U) NEGATIVE NEGATIVE 06/06/2017 6:38 PM [facility] Comment: NOTE: RESULTS OF THIS DRUG SCREEN SHOULD BE USED FOR MEDICAL PURPOSES ONLY AND NOT FOR LEGAL OR EMPLOYMENT PURPOSES. POSITIVE RESULTS ARE NOT CONFIRMED. MEDICATIONS CONTAINING EPHEDRINE MAY CAUSE FALSE POSITIVE AMPHETAMINE CALL [phone], LAB, TO REQUEST CONFIRMATION TESTING. IF CREATININE IS <40 mg/dL. ??RECOLLECTION IS SUGGESTED. AMPHETAMINE- ?500 NG/ML BARBITURATE- ?200 NG/ML BENZODIAZEPINES- ??200 NG/ML THC- ? 50 NG/ML COCAINE- ?150 NG/ML METHADONE- ?300 NG/ML OPIATE- ? 300 MG/ML PCP- ? 25 NG/ML CREATININE (U) 124.0 39 - 259 MG/DL 06/06/2017 6:38 PM DIRECTOR TRADE [facility] Urine specimen (specimen) URINE SPECIMEN / Unknown 06/06/2017 4:55 PM DIRECTOR TRADE us Jj Damico MD URINE ORDERABLES Final Res ult [facility] [address] [place] [address], * (ABNORMAL) PROTIME/INR, VENOUS (06/06/2017 4:55 PM DIRECTOR TRADE) PROTIME 13.2(H) 9.6 - 12.2 SEC 06/06/2017 5:23 PM DIRECTOR TRADE [facility] INR 1.2 06/06/2017 5:23 PM DIRECTOR TRADE [facility] Comment: Recommended INR Therapeutic Goals: ??2.0-3.0 Routine Therapy ??2.5-3.5 Mechanical Prosthetic Valves (High Risk) ??3.0-4.0 Acute MA (to prevent Systemic Embolism) The INR is used only for patients on stable oral anticoagulant therapy. It makes no significant contribution to the diagnosis or treatment of patients whose Protime is prolonged for other reasons. 06/06/2017 4:55 PM DIRECTOR TRADE us Ankur aRmsey [facility] Final Result Performing Organization Address [facility] Co de Phone Number [facility] [address] [place] [address], [place] [phone] * PARTIAL THROMBOPLASTIN TIME,PTT (06/06/2017 4:55 PM DIRECTOR TRADE) PTT 35.8 25.5 - 37.6 SEC 06/06/2017 5:23 PM DIRECTOR TRADE [facility] 06/06/2017 4:55 PM DIRECTOR TRADE us Ankur Ramsey [facility] Final Result [facility] [address] [place] [address], [place] [phone] * (ABNORMAL) COMPREHENSIVE METABOLIC PANEL (06/06/2017 4:55 PM DIRECTOR TRADE) GLUCOSE 97 70 - 99 MG/DL 06/06/2017 5:31 PM DIRECTOR TRADE [facility] BUN 10 7 - 18 MG/DL 06/06/2017 5:31 PM [facility] CREATININE S/P/B 0.92 0.7 - 1.3 MG/DL 06/06/2017 5:31 PM [facility] SODIUM S/P/B 142 136 - 145 MMOL/L 06/06/2017 5:31 PM [facility] POTASSIUM S/P/B 3.8 3.5 - 5.1 MMOL/L 06/06/2017 5:31 PM [facility] CHLORIDE S/P/B 107 100 - 108 MMOL/L 06/06/2017 5:31 PM [facility] CO2 28.4 21 - 32 MMOL/L 06/06/2017 5:31 PM [facility] CALCIUM S/P/B 9.2 8.5 - 10.1 MG/DL 06/06/2017 5:31 PM [facility] BILIRUBIN TOTAL S/P/B 0.8 0.2 - 1.2 MG/DL 06/06/2017 5:31 PM [facility] TOTAL PROTEIN S/P/B 7.7 6.4 - 8.2 G/DL 06/06/2017 5:31 PM [facility] ALBUMIN S/P/B 4.2 3.4 - 5.0 G/DL 06/06/2017 5:31 PM [facility] AST 39(H) 15 - 37 U/L 06/06/2017 5:31 PM [facility] ALT 23 16 - 60 U/L 06/06/2017 5:31 PM [facility] ALKALINE PHOSPHATASE S/P/B 87 50 - 136 U/L 06/06/2017 5:31 PM [facility] ANION GAP 10.4 8 - 20 MMOL/L 06/06/2017 5:31 PM [facility] BUN CREATININE RATIO 10.8 6 - 26 06/06/2017 5:31 PM [facility] A/G RATIO 1.2 1.0 - 2.0 RATIO 06/06/2017 5:31 PM [facility] EGFR NON-AFR. AMER. >60 >60 ML/MIN/1.7 3 M2 06/06/2017 5:31 PM [facility] EGFR AFR. AMER. >60 >60 ML/MIN/1.7 3 M2 06/06/2017 5:31 PM [facility] Comment: NOTE: eGFR is not calculated for patients <18 years of age. This is an estimated GFR (CKD EPI) and should not be used for calculating drug doses. 06/06/2017 4:55 PM DIRECTOR TRADE Ankur Ramsey DNP LABORATORY Final Result [facility] [address] [place] [address], [place] [phone] * (ABNORMAL) CBC W/DIFF AUTOMATED (06/06/2017 4:55 PM DIRECTOR TRADE) WBC 9.8 4.8 - 10.8 x10'3/uL 06/06/2017 5:14 PM [facility] RBC 4.28(L) 4.70 - 6.10 x10'6/uL 06/06/2017 5:14 PM [facility] HGB 13.4(L) 14.0 - 18.0 G/DL 06/06/2017 5:14 PM [facility] HCT 41.4(L) 43.0 - 54.0 % 06/06/2017 5:14 PM [facility] MCV 96.7(H) 80.0 - 94.0 FL 06/06/2017 5:14 PM DIRECTOR TRADE [facility] MCH 31.3(H) 27.0 - 31.0 PG 06/06/2017 5:14 PM DIRECTOR TRADE [facility] MCHC 32.4 32.0 - 36.0 G/DL 06/06/2017 5:14 PM [facility] RDW 12.8 11.5 - 14.5 % 06/06/2017 5:14 PM DIRECTOR TRADE [facility] PLT 242 130 - 400 x10'3/uL 06/06/2017 5:14 PM [facility] MPV 10.7 9.3 - 12.2 FL 06/06/2017 5:14 PM [facility] NEUTROPHILS % 62.5 43.0 - 65.0 % 06/06/2017 5:14 PM [facility] LYMPHOCYTES % 27.7 20.0 - 46.0 % 06/06/2017 5:14 PM DIRECTOR TRADE [facility] MONOCYTES % 8.7 5.0 - 12.0 % 06/06/2017 5:14 PM [facility] EOSINOPHILS 0.6(L) 1.0 - 3.0 % 06/06/2017 5:14 PM [facility] BASOPHILS 0.2 0.0 - 1.0 % 06/06/2017 5:14 PM DIRECTOR TRADE [facility] IMMATURE GRANS % 0.3 0.0 - 1.0 % 06/06/2017 5:14 PM [facility] 06/06/2017 4:55 PM DIRECTOR TRADE Ankur Ramsey DNP LABORATORY Final Result [facility] [address] [place] [address], [place] [phone] * (ABNORMAL) URINALYSIS WI REFLEX TO CULTURE (06/06/2017 4:54 PM DIRECTOR TRADE) SPECIMEN TYPE URINE CLEAN CATCH 06/06/2017 4:20 PM [facility] COLOR (U) YELLOW 06/06/2017 6:50 PM [facility] TRANSPARENCY CLEAR 06/06/2017 6:50 PM [facility] SPECIFIC GRAVITY (U) 1.014 1.001 - 1.030 06/06/2017 6:50 PM [facility] U PH 5.0 5.0 - 9.0 06/06/2017 6:50 PM [facility] LEUKOCYTES (U) NEGATIVE NEGATIVE 06/06/2017 6:50 PM [facility] NITRITES NEGATIVE NEGATIVE 06/06/2017 6:50 PM [facility] PROTEIN (U) NEGATIVE <30 MG/DL 06/06/2017 6:50 PM [facility] URINE GLUCOSE NEGATIVE NEGATIVE MG/DL 06/06/2017 6:50 PM [facility] KETONES MG/DL (U) TRACE(A) NEGATIVE MG/DL 06/06/2017 6:50 PM [facility] UROBILINOGEN NEGATIVE NEGATIVE MG/DL 06/06/2017 6:50 PM [facility] BILIRUBIN (U) NEGATIVE NEGATIVE MG/DL 06/06/2017 6:50 PM [facility] BLOOD (U) NEGATIVE NEGATIVE 06/06/2017 6:50 PM [facility] CULTURE & SENSITIVITY INDICATED? CULTURE IS NOT INDICATED 06/06/2017 6:50 PM [facility] MUCUS RARE /LPF 06/06/2017 6:50 PM [facility] WBC/HPF 1 <6 /HPF 06/06/2017 6:50 PM DIRECTOR TRADE [facility] RBC/HPF <1 <6 /HPF 06/06/2017 6:50 PM DIRECTOR TRADE [facility] URINE SPECIMEN OBTAINED BY CLEAN CATCH PROCEDURE / Unknown 06/06/2017 4:54 PM DIRECTOR TRADE us Jj Damico MD URINE ORDERABLES Final Res ult [facility] [address] [place] [address], [place] [phone] * CT HEAD WO CON (06/06/2017 4:34 PM DIRECTOR TRADE) Anatomical Region Laterality Modality Head Computed Tomogra phy 06/06/2017 4:39 PM DIRECTOR TRADE Impressions 06/06/2017 4:45 PM DIRECTOR TRADE ===== IMPRESSION: ===== 1. ??No convincing acute intracranial abnormalities. 2. ??Parenchymal atrophy and small vessel ischemic disease. Superimposed acute infarct not excluded. If there is any clinical concern for acute infarct, MRI is recommended. 3. ??Old lacunar infarcts in the basal ganglia with old right MEDICAL PHYSICS TEACHER territory infarct as well. Narrative 06/06/2017 4:45 PM DIRECTOR TRADE EXAMINATION: CT of the head EXAM DATE/TIME: 06/06/2017 4:33 PM REASON FOR EXAM: ??Head trauma, minor, GCS>=13, NOC/NEXUS/CCR neg, first study ? Head laceration. COMPARISON: 04/29/[address] TECHNIQUE: Axial CT images of the brain are obtained from skull base through vertex without the use of IV contrast agent. ??Automated exposure control was utilized for dose reduction. FINDINGS: ??No acute hemorrhage or large territory infarct. ??Ventricles are moderately enlarged with prominent bilateral sulci indicating moderate parenchymal volume loss. ??There are minimal areas of scattered hypodensities in the periventricular deep white matter which are nonspecific but likely secondary to mild small vessel ischemic disease. Old infarct right MEDICAL PHYSICS TEACHER distribution. Bilateral basal ganglia old lacunar infarcts. Benign falcine calcifications. There are no extra-axial fluid collections. ??There is no mass, mass effect, or midline shift. ??There is no depressed skull fracture. ??Visualized paranasal sinuses and mastoid air cells are clear. Visualized orbital contents are unremarkable. Soft tissue density subcutaneous nodule in the posterior scalp again noted and stable. Procedure Note Burke Mcgregor MD - 06/06/2017 EXAMINATION: CT of the head EXAM DATE/TIME: 06/06/2017 4:33 PM REASON FOR EXAM: Head trauma, minor, GCS>=13, NOC/NEXUS/CCR neg, first study Head laceration. COMPARISON: 04/29/[address] TECHNIQUE: Axial CT images of the brain are obtained from skull base through vertex without the use of IV contrast agent. Automated exposure control was utilized for dose reduction. FINDINGS: No acute hemorrhage or large territory infarct. Ventriclesare moderately enlarged with prominent bilateral sulci indicating moderate parenchymal volume loss. 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 Bilateral basal ganglia old lacunar infarcts. Benign falcine calcifications. There are no extra-axial fluid collections. There is no mass, mass effect, or midline shift. There isno depressed skull fracture. Visualized paranasal sinuses and mastoid air cells are clear. Visualized orbital contents are unremarkable. Softtissue density subcutaneous nodule in the posterior scalp again noted andstable. ===== IMPRESSION: ===== 1. No convincing acute intracranial abnormalities. 2. Parenchymal atrophy and small vessel ischemic disease. Superimposed acute infarct not excluded. If there is any clinical concern for acute infarct, MRI is recommended. 3. Old lacunar infarcts in the basal ganglia with old right PCAterritory infarct as well. Ankur Ramsey [facility] CT Final Result documented in this encounter Visit Diagnoses Diagnosis Laceration of left eyebrow, initial encounter- Primary Seizure ([facility] HHS/HCC) Other convulsions Seizure disorder ([facility] HHS/[facility]) Unspecified epilepsy without mention of intractable epilepsy documented in this encounter Administered Medications Inactive Administered Medications - up to 3 most recent administrations Medication Order MAR Action Action Date Dose Rate Site acetaminophen (TYLENOL) tablet 1,000 mg 1,000 mg, Oral, Once, 1 dose, On Tue06/06/17 at 1715, Maximum dose of acetaminophen is 4000 mg from all sources in 24 hours. Given 06/06/2017 4:56 PM DIRECTOR TRADE 1,000 mg zhiodybn-zdtkoxevvm-oppktqudz (NEOSPORIN) ointment Topical, Once, 1 dose, On Tue06/06/17 at 1745 Given 06/06/2017 5:37 PM DIRECTOR TRADE documented in this encounter Active and Recently Administered Medications Times are shown in DIRECTOR TRADE. Scheduled Medication Order 06/04/2017 06/05/2017 06/06/2017 acetaminophen (TYLENOL) tablet 1,000 mg (COMPLETED) 1,000 mg, Oral, Once, 1 dose, On Tue06/06/17 at 1715, Maximum dose of acetaminophen is 4000 mg from all sources in 24 hours. 1656 (Given - Provid er: Dionne Denise RN) xohwkkgy-xazftuedzt-yculvjrnp (NEOSPORIN) ointment (COMPLETED) Topical, Once, 1 dose, On Tue06/06/17 at 1745 1737 (Given - Provid er: Luisa Ramos RN) documented in this encounter Care Teams Dyeing Machine Feeder Relationship Specialty Start Date End Date Porter Porras [place] [address] [place] [address] PCP - General 06/25/16 09/27/18 Frank Toure MD [address] [place] [id number] [place] Backside Grinder CARDIOVASCULAR DISEASE 05/30/16 documented as of this encounter
--- OUTSIDE RECORDS SUMMARY | 2024-06-08 05:53 | XMS_ITS | Encounter Summary ---
Author Organization [facility] Address [address] [place], [place] [address] [place] [address] Care Team Providers Care Hot Shot Name Role Phone Frank Toure MD Unavailable Kayla Porras NP Primary Care Provider [phone] Encounter Details Date Type Department Care Team (Latest Contact Info) Description 10/12/2017 Abstract [facility] Misael Maradiaga, DO [address] [address] Social History Tobacco Use Types [...] filedocumented in this encounter Care Teams Hot Shot Relationship Specialty Start Date End Date Kay[place] [place] [address] PCP - General 06/25/16 09/27/18 Frank Toure MD [address] [place] [id number] [place] Integrated Circuit Design Engineer CARDIOVASCULAR DISEASE 05/30/16 documented as of this encounter
--- OUTSIDE RECORDS SUMMARY | 2024-06-08 05:53 | XMS_ITS | Encounter Summary ---
Author Organization [facility] Address [address] [facility] [place], [place] [address] [place] [id number] Care Team Providers Care Print Color Matcher Name Role Phone Frank Toure MD Unavailable Kayla Porras NP Primary Care Provider [phone] Encounter Details Date Type Department Care Team (Latest Contact Info) Description 03/24/2017 Abstract [facility] , Jerica Cordon MD Social [...] documented in this encounter Consult Notes * Misael Maradiaga, - 03/24/2017 5:40 PM CDT [place] [address] Patient: BI TABOR Med Rec#: [id number] Birthdate: 1960 Admit/Svce Date: 03/23/2017 Disch Date: 03/24/2017 Attending Md: LUL BLACK MD CHART DOCUMENT DATE OF CONSULTATION: 03/24/2017 I saw Bi Tabor today on March 24. He is a 57-year-old gentleman who had multiple seizures yesterday. Initially the ER physician was not sure whether it was a real seizure or not because he did not have any postictal confusion and he was responding somewhat during the episode. Then she noted a real grandmal seizure. I had seen in the past and last time I increased his Keppra to 1 g b.i.d. Now he tells me that it is only once a day. So there are problems with compliance. He also says he had some stroke some 8 months ago involving the left side of body, from which he recovered. He walks with a walker. In the past his MRI of the brain was basically unremarkable except for small vessel disease and lacunar infarct in the basal ganglia and brainstem. PAST MEDICAL HISTORY: In addition to CVA he has high blood pressure, seizure disorder, hyperlipidemia, hypertension, benign prostatic hypertrophy. MEDICATIONS: Includes Lipitor, Norvasc, and Keppra 5 mg 2 a day. PERSONAL HISTORY: He walks with a walker. He told me he stopped smoking and drinking 8 months ago. NEUROLOGIC EXAMINATION: Reveals patient is an alert, very pleasant gentleman who is quite coherent. He can follow simple commands. He is alert. Speech is fluent, articulate. Cranial nerves II through XII are intact. He has a mild weakness in the left arm. He has no focal weakness elsewhere. Reflexes are 2+ symmetrical in the upper limbs, 1+ or 2+ at the knees. Ankles are 1+. Plantars are both downgoing. Gait exam deferred. Exam of the head, neck, and spine are unremarkable. IMPRESSION: Recurrent seizure or breakthrough seizure secondary to poor compliance. I told him he needs more medication and take the medicine twice a day. So I am going to readjust the dosage of Keppra as follows. He is having 500 mg tablets, so I want him to take 2 tablets b.i.d. for the 1st week, then 3 tablet b.i.d. from 2nd week on. If he is drowsy I asked him to call me. Thank you for the consult. Electronically Signed By: JOAO CRAWFORD M.D. 03/25/2017 11:35 A JOAO CRAWFORD M.D. P #[id number] P/ma cc: Malena DIAZ M.D. USHA MUTHYALA, M.D. ANTHONY L. TRUONG, D.O. documented in this encounter Plan of Treatment Not on file documented as of this encounter Visit Diagnoses Not on filedocumented in this encounter Care Teams Print Color Matcher Relationship Specialty Start Date End Date [place] [address] PCP - General 06/25/16 09/27/18 Frank Toure MD [address] [place] [address] [place] Disc Ruler Operator CARDIOVASCULAR DISEASE 05/30/16 documented as of this encounter
--- OUTSIDE RECORDS SUMMARY | 2024-06-08 05:53 | XMS_ITS | Encounter Summary ---
Author Organization [facility] Address [address] [place] [address] [place] [address] Care Team Providers Care Snaker Driving Horses Name Role Phone Frank Toure MD Unavailable Kayla Porras NP Primary Care Provider [phone] Encounter Details Date Type Department Care Team (Late st Contact Info) Description 03/23/2017 Orders Only [facility] [address] [place] [address] Kwabena Benito MD [address] [place] [address] Social History Tobacco Use Types Packs/Day Years [...] Procedure Name Priority Date/Time Associated Diagnosis Comments CARDIOLOGY GENERIC 03/23/2017 11 :56 PM CDT documented in this encounter Results * CARDIOLOGY GENERIC (03/23/2017 11:56 PM CDT) 03/23/2017 11:5 6 PM CDT Narrative [facility] - 03/23/2017 12:00 AM CDT ? BI AZUL MD: KWABENA BENITO MD ?? Acct: [id number] ?? Admit/Service Date: 03/23/17 Discharge Date: ?? : 1960 Pt Type: ADM IN ?? Sex: M Ord [facility], [place], [place] ?Test Date: ?2017-03-23 ?? Pat Name: ? BI AZUL ? Department: CARD ?? 40 ? Room: ? D3151 ?? Gender: ? Male ? Juvenile Justice Officer: ?? ct ?? : ?1960 ? Requested By: KWABENA MUTHYALA KWABENA MUTHYALA ?? Order Number: [id number] ?Reading MD: ?? Shiyam Satwani ?Measurements ?? Intervals ?[place] ? Rate: ? 70 ? P: ?61 ?? MD: ? 181 ?QRS: ?38 ?? QRSD: ? 101 ?T: ?61 ?? QT: ? 372 ? QTc: ?404 ?Interpretive Statements ?? SINUS RHYTHM ?? Old ANTEROSEPTAL MYOCARDIAL INFARCTION ?? Compared to ECG 11/13/2016 19:30:24 ?? No significant changes ? Procedure Note Nigel Lozano MD - 03/24/2017 BI AZUL MD: KWABENA BENITO MD Acct: [id number] Admit/Service Date: 03/23/17 Discharge Date: : 1960 Pt Type: ADM IN Sex: M Ord Site: [address] Test Date: 2017-03-23 Pat Name: BI AZUL Department: CARD 40 Room: D3151 Gender: Male Juvenile Justice Officer: ct : 1960 Requested By: KWABENA STOLL Order Number: [id number] Reading MD: Nigel Lozano Measurements Intervals [place] Rate: 70 P: 61 MD: 181 QRS: 38 QRSD: 101 T: 61 QT: 372 QTc: 404 Interpretive Statements SINUS RHYTHM Old ANTEROSEPTAL MYOCARDIAL INFARCTION Compared to ECG 11/13/2016 19:30:24 No significant changes Kwabena Benito MD [facility] Final Re sult [facility] documented in this encounter Visit Diagnoses Not on filedocumented in this encounter Care Teams Snaker Driving Horses Relationship Specialty Start Date End Date Kayla [place] [address] [place] [address] PCP - General 06/25/16 09/27/18 Frank Toure MD [address] [place] [address] [place] Director General CARDIOVASCULAR DISEASE 05/30/16 documented as of this encounter
--- OUTSIDE RECORDS SUMMARY | 2024-06-08 05:53 | XMS_ITS | Encounter Summary ---
Author Organization [facility] Address [address] [place] [address] [place] [address] Care Team Providers Care Carbon Grinder Name Role Phone Frank Toure MD Unavailable Porter Porras NP Primary Care Provider [phone] Reason for Referral * (Routine) - Canceled Specialty Diagnoses / Procedures Referred By Contac t Referred To Contact Procedures OT eval and treat Cristina Rivera III, MD Phone: tel: fax: Referral ID Status Reason Start Date Expiration Date V isits Requested Visits Authorized [id number] Canceled 08/25/2017 09/25/2018 1 1 * (Routine) - Canceled Specialty Diagnoses / Procedures Referred By Contac t Referred To Contact Procedures PT eval and treat Cristina Rivera III, MD Phone: tel: fax: Referral ID Status Reason Start Date Expiration Date V isits Requested Visits Authorized [id number] Canceled 08/25/2017 09/25/2018 1 1 Reason for Visit * Auth/Cert Specialty Diagnoses / Procedures Referred By Contac t Referred To Contact Diagnoses seizures Seizure Referral ID Status Reason Start Date Expiration Date Visits Re quested Visits Authorized [id number] 1 1 Encounter Details Date Type Department Care Team (Latest Contact Info) Description 08/25/2017 12:22 AM CDT - 08/28/2017 4:35 PM CDT Hospital Encounter [facility] Telemetry Unit [address] [place] [address] Cristina Rivera III, MD [address] [place] [address] Lupillo Black MD [address] [facility] [place] [address] Eliseo Buckley MD Discharge Disposition: Home with Home Health Care [...] Reading Time Taken Comments Blood Pressure 128/72 08/28/2017 11:45 AM CDT Pulse 63 08/28/2017 11:45 AM CDT Temperature 36.8 ??C (98.2 ??F) 08/28/2017 1 1:45 AM CDT Respiratory Rate 18 08/28/2017 11:4 5 AM CDT Oxygen Saturation 100% 08/28/2017 11: 45 AM CDT Inhaled Oxygen Concentration - - Weight 63.8 kg (140 lb 10.5 oz) 018 11:00 PM CDT Height - - Body Mass Index 19.62 06/15/2017 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 No 08/28/2017 2:38 PM CDT Loraine Staley RN Activ e Do you have difficulty dressing or bathing? No 08/28/2017 2:38 PM CDT Staley, Loraine M, RN A ctive Because of a physical, [...] Liao RN Active documented in this encounter Discharge Summaries * Eliseo Buckley MD - 08/28/2017 1:27 PM CDT Physician Discharge Summary Patient ID: Bi Tabor [id number] 57-year-old 1960 Admit date: 08/25/2017 Expected Discharge Date: 08/28/2017 Admitting Physician: Cristina Rivera III, MD Discharge Physician: Eliseo Buckley MD Admission Diagnoses: seizures Seizure Discharge Diagnoses: Rhabdomyolysis Seizure Admission Condition: serious Discharged Condition: stable Indication for Admission: found down at home, after an extended amount of time/overnight, and assumed to have had a seizure leading up to this. He had another witnessed seizure at home, and more seizures at [facility]. CPK 4650. ER doc informed me that pt was on Keppra 500mg BID at home and that neurology had recommended 1g Keppra, then to be placed on 1g BID. He also received IV Ativan. Records show however that pt's home dose is Keppra 1500mg BID Hospital Course: admitted posticatl post seizure. Seen by neurology increase keppra to 2 gm bid. Dilantin considered. He was also noted to have rhabdo and ARF. Improved with fluid resuscitation. CPK close to normal. pateint mentions he feels comfortabel doing this at home. Really eager to go home with easter. Will go home with home health. Hold statin till seen by PCP. Consults: neurology Code Status: No Order Procedures: Procedures CK (CPK) Routine CK (CPK) Routine CK (CPK) Routine CBC W/DIFF AUTOMATED Routine BASIC METABOLIC PANEL Routine CK (CPK) Routine COMPREHENSIVE METABOLIC PANEL Routine EEG AWAKE OR DROWSY ROUTINE Routine CBC W/DIFF AUTOMATED Routine BASIC METABOLIC PANEL Routine THYROID STIM HORMONE, TSH Routine CK (CPK) Routine Referrals: No orders of the defined types were placed in this encounter. Significant Diagnostic Studies: labs reviewed. Treatments: Anti seizure, IVF. Discharge Exam: alert, appears stated age and cooperative Eyes: conjunctivae/corneas clear. PERRL, EOM's intact lips, mucosa, and tongue normal; teeth and gums normal clear to auscultation bilaterally Heart: S1, S2 normal, no murmur, click, rub or gallop, regular rate and rhythm soft, non-tender, without masses or organomegaly Extremities: extremities, peripheral pulses and reflexes normal and no edema, redness or tendernessin the calves or thighs 2+ and symmetric Skin: Skin color, texture, turgor normal. No rashes or lesions Disposition: Home or Self Care (Routine Discharge) Patient Instructions: Current Discharge Medication List CONTINUE these medications which have CHANGED Details levETIRAcetam 1000 MG tablet Take 2 tablets (2,000 mg total) by mouth 2 (two) times daily. Qty: 360 tablet, Refills: 3 CONTINUE these medications which have NOT CHANGED Details acetaminophen-codeine 300-30 MG tablet Take 1 tablet by mouth every 6 (six) hours as needed for Pain. Qty: 12 tablet, Refills: 0 amlodipine 5 MG tablet Take 5 mg by mouth daily. aspirin 81 MG chewable tablet Chew 81 mg by mouth daily. folic acid 1 MG tablet Take 3 mg by mouth daily. gabapentin 300 MG capsule Take 300 mg by mouth 3 (three) times daily. STOP taking these medications atorvastatin 40 MG tablet Activity: activity as tolerated Diet: cardiac diet Wound Care: none needed Follow-up with PCP and neurology. Signed: ELISEO BUCKLEY MD 08/28/2017 1:27 PM documented in this encounter Discharge Instructions * Discharge Instructions* Loraine Staley RN - 08/28/2017 2:56 PM CDT Please do not resume lipitor/zocor till cleared by PCP. Maintain hydration. If any symptoms recur please return to ER. * Attachments The following attachments cannot be sent through Care Everywhere. * SEIZURES (KHMER) documented in this encounter Medications at Time of Discharge acetaminophen-cod eine 300-30 MG tablet Take 1 tablet by mouth every 6 (six) hours as needed for Pain. 12 tablet 04/29/2017 09/01/2018 amlodipine 5 MG tablet Take 5 mg by mouth daily. 08/18/2018 aspirin 81 MG chewable tablet Chew 81 mg by mouth daily. 08/21/2018 busPIRone 10 MG tablet 11/17/2016 08/21/2018 Cyanocobalamin (B-12) 1000 MCG Cap Take 1,000 mcg by mouth. 07/11/2017 11/29/2018 folic acid 1 MG tablet Take 1 mg by mouth daily. 12/12/2018 gabapentin 300 MG capsule Take 300 mg by mouth 3 (three) times daily. 11/22/2018 levETIRAcetam 1000 MG tablet Take 2 tablets (2,000 mg total) by mouth 2 (two) times daily. 360 tablet 3 08/28/2017 08/21/2018 metoprolol succinate ER 25 MG 24 hr tablet Take 1 tablet by mouth daily. 02/10/2017 09/01/2018 documented as of this encounter Progress Notes * Scar Mayes RN - 08/28/2017 3:00 AM CDT Problem: Falls - Risk of Goal: Absence of falls Outcome: Met This Shift Patient has used call light when he has needed anything * Janis Yost PTA - 08/27/2017 3:09 PM CDT 08/27/17 1109 Therapy Visit Ordering Provider MD Rivera Subjective Pt. agreed to get up to chair and do sitting exercises. Reason for admission seizure Relevant Comorbidities/ Personal Factors to PT s/p cva Precautions General Precautions Fall Risk;Bed Alarm Pain Pain No Activity Tolerance Endurance Tolerates 10 - 20 min activity with rests Cognition Overall Cognitive Status Impaired Bed Mobility Supine to Sit SBA/supervision Transfers Sit to Stand SBA/supervision Gait Gait Assistance Contact guard assist Assistive Device 2 Wheeled walker Ambulation Distance (Feet) 5' Other (Comment) Pt. was unsteady with gait. Exercises Sitting LE Exercise R/L marching, knee ext, ankle pumps, and glut sets x 15 reps each Patient/Family Training Bed Mobility x Transfer Training x Gait Training x Exercise Program x Recommendation PT Recommendation PT during Hospitalization PT Equipment Recommended 2 Wheeled walker Plan PT Treatments/Interventions Gait Training;Therapeutic Exercises;Therapeutic Activities Progress Progressing toward goals PT Frequency Daily;BID * Loraine Staley RN - 08/27/2017 12:29 PM CDT Problem: Falls - Risk of Goal: Absence of falls Outcome: Progressing Pt is fall free. Ambulating with PT. Fall precautions in place * Eliseo Buckley MD - 08/27/2017 11:52 AM CDT Hospitalist Progress Note Assessment and Plan : Active Problems: Seizure SNOMED CT(R): SEIZURE Subjective Patient sitting at bedside. No more seizures. Dark urine reported earlier. Getting IVF bolus. SNF considered. Pt wants to go home with HH. Objective Blood pressure 124/71, pulse 71, temperature 98.1 ??F (36.7 ??C), temperature source Oral, resp. rate 16, weight 63.8 kg (140 lb 10.5 oz), SpO2 98 %. Intake/Output last 3 shifts: I/O last 3 completed shifts: In: 290 [P.O.:290] Out: 2925 [Urine:2925] In general the patient is a well-developed, well-nourished, well-groomed 57-year-old year old male appearing stated age, in no acute distress. HEENT: Head normocephalic atraumatic, sclerae and conjunctivae are clear. PERRLA, EOMI and pain-free. TONGUE IS DRY Cardiac: RRR without murmer. No rubs or clicks. Chest: Breathing is nonlabored, lungs are clear throughout. Abdomen: Soft and nontender, bowel sounds are present. : Voids. Extremities: Bilateral lower extremities are free of edema, calves are soft and nontender bilaterally. Neuro: Alert, oriented, Grossly non-focal exam, motor and CN intact. Psych: Mood and judgment are appropriate. Diagnostic Data Recent Results (from the past 24 hour(s)) POCT glucose Collection Time: 08/26/17 8:44 PM Result Value Ref Range GLUCOSE POC 96 70 - 99 mg/dL CBC W/DIFF AUTOMATED Collection Time: 08/27/17 5:39 AM Result Value Ref Range WBC 7.1 4.8 - 10.8 x10'3/uL RBC 4.31 (L) 4.70 - 6.10 x10'6/uL HGB 13.6 (L) 14.0 - 18.0 G/DL HCT 40.4 (L) 43.0 - 54.0 % MCV 93.7 80.0 - 94.0 FL MCH 31.6 (H) 27.0 - 31.0 PG MCHC 33.7 32.0 - 36.0 G/DL RDW 11.3 (L) 11.5 - 14.5 % PLT 127 (L) 130 - 400 x10'3/uL MPV 11.6 9.3 - 12.2 FL NEUTROPHILS 48.2 43.0 - 65.0 % LYMPHOCYTES 40.4 20.0 - 46.0 % MONOCYTES 9.8 5.0 - 12.0 % EOSINOPHILS 1.1 1.0 - 3.0 % BASOPHILS 0.4 0.0 - 1.0 % IMMATURE GRANS 0.1 0.0 - 1.0 % POCT glucose Collection Time: 08/27/17 6:53 AM Result Value Ref Range GLUCOSE POC 89 70 - 99 mg/dL POCT glucose Collection Time: 08/27/17 11:23 AM Result Value Ref Range GLUCOSE POC 104 (H) 70 - 99 mg/dL No results found. Medication: ??? amlodipine 5 mg Oral Daily ??? aspirin 81 mg Oral Daily ??? enoxaparin 40 mg Subcutaneous Q24H ??? gabapentin 300 mg Oral TID ??? levETIRAcetam 2,000 mg Oral BID ??? 0.9 % NaCl with KCl 20 mEq 125 mL/hr (08/26/17 0906) acetaminophen, acetaminophen-codeine, lorazepam, ondansetron A/P 1. Recurrent seizures, Seizure d/o Prolonged post ictal phase: continue mgmt. Continue mgmt, neuro managing. 2. 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 3. HTN: Cotnrolled CPM. 4. Acute Rhabdomyolysis without SAMANTHA: IV fluids and monitor CPK and BMP daily, pending today.. Fluidbolus prn. Dispo home with home health when CPK < 1000. All plan d/w patient, he is agreeable with plan andvoice understanding. ELISEO BUCKLEY MD 08/27/2017 11:52 AM * Eliseo Buckley MD - 08/26/2017 4:40 PM CDT Hospitalist Progress Note Assessment and Plan : Active Problems: Seizure SNOMED CT(R): SEIZURE Subjective Patient sitting at bedside. No more seizures. Dark urine reported earlier. Getting IVF bolus. SNF considered. Pt wants to go home with HH. Objective Blood pressure 141/76, pulse 71, temperature 98.1 ??F (36.7 ??C), temperature source Oral, resp. rate 18, weight 63.8 kg (140 lb 10.5 oz), SpO2 99 %. Intake/Output last 3 shifts: I/O last 3 completed shifts: In: 410 [P.O.:410] Out: 2675 [Urine:2675] In general the patient is a well-developed, well-nourished, well-groomed 57-year-old year old male appearing stated age, in no acute distress. HEENT: Head normocephalic atraumatic, sclerae and conjunctivae are clear. PERRLA, EOMI and pain-free. TONGUE IS DRY Cardiac: RRR without murmer. No rubs or clicks. Chest: Breathing is nonlabored, lungs are clear throughout. Abdomen: Soft and nontender, bowel sounds are present. : Voids. Extremities: Bilateral lower extremities are free of edema, calves are soft and nontender bilaterally. Neuro: Alert, oriented, Grossly non-focal exam, motor and CN intact. Psych: Mood and judgment are appropriate. Diagnostic Data Recent Results (from the past 24 hour(s)) CK (CPK) Collection Time: 08/26/17 6:13 AM Result Value Ref Range CPK 5216 (H) 35 - 232 U/L COMPREHENSIVE METABOLIC PANEL Collection Time: 08/26/17 6:13 AM Result Value Ref Range GLUCOSE 104 (H) 70 - 99 MG/DL BUN 11 7 - 18 MG/DL CREATININE 0.73 0.7 - 1.3 MG/DL SODIUM 143 136 - 145 MMOL/L POTASSIUM 3.5 3.5 - 5.1 MMOL/L CHLORIDE 111 (H) 100 - 108 MMOL/L CO2 26.8 21 - 32 MMOL/L CALCIUM 8.3 (L) 8.5 - 10.1 MG/DL TOTAL BILIRUBIN 0.6 0.2 - 1.2 MG/DL TOTAL PROTEIN 6.1 (L) 6.4 - 8.2 G/DL ALBUMIN 3.4 3.4 - 5.0 G/DL AST 110 (H) 15 - 37 U/L ALT 38 16 - 60 U/L ALK PHOS 69 50 - 136 U/L ANION GAP 8.7 8 - 20 MMOL/L BUN CREATININE RATIO 15.0 6 - 26 A/G RATIO 1.3 1.0 - 2.0 RATIO eGFR Non-Afr. Amer. >90 >90 ML/MIN/1.73 M2 eGFR Afr. Amer. >90 >90 ML/MIN/1.73 M2 No results found. Medication: ??? amlodipine 5 mg Oral Daily ??? aspirin 81 mg Oral Daily ??? enoxaparin 40 mg Subcutaneous Q24H ??? gabapentin 300 mg Oral TID ??? levETIRAcetam 2,000 mg Oral BID ??? 0.9 % NaCl with KCl 20 mEq 125 mL/hr (08/26/17 0906) acetaminophen, acetaminophen-codeine, lorazepam, ondansetron A/P 1. Recurrent seizures, Seizure d/o Prolonged post ictal phase: continue mgmt. Continue mgmt, neuro managing. 2. 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 3. HTN: Cotnrolled CPM. 4. Acute Rhabdomyolysis without SAMANTHA: IV fluids and monitor CPK and BMP daily. Fluid bolus prn. Dispo home with home health when CPK < 1000. All plan d/w patient, he is agreeable with plan andvoice understanding. ELISEO BUCKLEY MD 08/26/2017 4:40 PM * Marie Kathia, REIMBURSEMENT REPRESENTATIVE - 08/26/2017 3:32 PM CDT 08/26/17 9949 Therapy Visit Ordering Provider MD Rivera Subjective Pt stated he can try walking Reason for admission seizure Relevant Comorbidities/ Personal Factors to PT s/p cva Precautions General Precautions Fall Risk;Bed Alarm Pain Pain No Activity Tolerance Endurance Tolerates 10 - 20 min activity with rests Cognition Overall Cognitive Status Impaired Orientation Level Oriented to place;Oriented to time;Oriented to person Following Commands Follows all commands and directions without difficulty Transfers Sit to Stand SBA/supervision Gait Gait Assistance Min assist Assistive Device 2 Wheeled walker Ambulation Distance (Feet) 30 feet Other (Comment) Pt with unsteady gait pattern due to pt's feet are hurting due to callus on feet with poor balance Exercises Sitting LE Exercise B LE's; toe/heel taps, knee extension, marching, hip abd/add, x 10-15 reps withrest breaks Other (Comment) Pt performed sit to stand activity for 10 reps with SBS to devleop B quad and hip strength Patient/Family Training Transfer Training x Exercise Program x Recommendation PT Recommendation PT during Hospitalization PT Equipment Recommended 2 Wheeled walker Plan PT Treatments/Interventions Gait Training;Therapeutic Exercises;Therapeutic Activities Progress Progressing toward goals PT Frequency Daily;BID If this is the last treatment note,it will serve as the discharge summary Yes * GREY Peace - 08/26/2017 3:31 PM CDT 08/26/17 1055 Therapy Visit Ordering Provider MD Rivera Reason for admission seizure Precautions General Precautions Fall Risk;Bed Alarm Other Pt. out to EKG; will continue to follow. * ALEJANDRA Rehman - 08/26/2017 2:36 PM CDT 08/26/17 1416 Therapy Visit Ordering Provider MD Rivera Reason for admission seizure Precautions General Precautions Fall Risk;Bed Alarm Subjective Subjective PATIENT STATES HE IS LEAVING TODAY Pain Pain No Activity Tolerance Endurance Tolerates 10 - 20 min activity with rests Cognition Overall Cognitive Status Impaired ADL LE Dressing Assistance Stand by;Sitting in chair;Alternating sit/stand (SCRUB PANTS SBA FOR SAFETY/BALANCE WITH WW) Functional Transfers Sit to Stand SBA/supervision (WITH WW) Interventions Other (Comment) PATIENT COMPLETED UE DOWEL EXERCISES WITH ROLLED SHOULDER SHOULDER FLEX/EXT X 10 REPS, ELBOW FLEX/EXT X 10 REPS, CHEST PRESS X 10 REPS WITH MOD VERBAL CUES FOR POSITIONING Patient/Family Training Self Cares X Transfer Training X Exercise Program X Other (Comment) ONE ON ONE FAIR UNDERSTANDING (PATIENT IMPULSSIVE WITH LB DRESSING) Recommendation OT Recommendation 24 hour supervision/assist;OT at [facility];OT during Hospitalization ALEJANDRA REHMAN * Dionne Nguyễn LCSW - 08/26/2017 1:24 PM CDT SW met w/ pt bedside re: dc planning and doc and PT recommendations for SNF. Pt states that he lives at home alone but has caregivers starting on Tuesday that will assist with his ADL's. Pt also states that he has a brother and sister who provide care and support to him. Pt adamentaly refused SNF care. Pt states that he has been at [facility] in the past and doesn't want to return or go to any other SNF. Pt states that he has no concerns about d/c home and anticipates that he will d/c home tomorrow - Tuesday. No further SW intervention is indicated at this time. * Marie Bae PTA - 08/26/2017 10:54 AM CDT 08/26/17 0856 Therapy Visit Ordering Provider MD Rivera Subjective Pt stated he can sit on the recliner Reason for admission seizure Relevant Comorbidities/ Personal Factors to PT s/p cva Precautions General Precautions Fall Risk;Bed Alarm Pain Pain No Activity Tolerance Endurance Tolerates 10 - 20 min activity with rests Cognition Overall Cognitive Status Impaired Orientation Level Oriented to place;Oriented to time;Oriented to person Following Commands Follows all commands and directions without difficulty Bed Mobility Supine to Sit SBA/supervision Transfers Stand Pivot Transfers SBA/supervision;Min assist Sit to Stand SBA/supervision Bed to Chair SBA/supervision;Min assist Exercises Sitting LE Exercise B LE's; toe/heel taps, knee extension, marching, hip abd/add, x 10-15 reps withrest breaks Other (Comment) Pt performed sit to stand activity for 10 reps with SBS to devleop B quad and hip strength Patient/Family Training Transfer Training x Exercise Program x Recommendation PT Recommendation PT during Hospitalization PT Equipment Recommended 2 Wheeled walker Plan PT Treatments/Interventions Gait Training;Therapeutic Exercises;Therapeutic Activities Progress Progressing toward goals PT Frequency Daily;BID If this is the last treatment note,it will serve as the discharge summary Yes * Rickie Cannon PT - 08/25/2017 3:09 PM CDT 08/25/17 1400 Therapy Visit Ordering Provider dr rivera Subjective patient states he will work with pt Reason for admission seizure Relevant Comorbidities/ Personal Factors to PT s/p cva Precautions General Precautions Fall Risk;Bed Alarm Home Living Type of Home House Prior Function Level of [place] Independent with ADLs Device used at baseline 2 Wheeled walker Fall History No Lives With Alone Receives Help From line service attendant Pain Pain No Activity Tolerance Endurance Tolerates 10 - 20 min activity with rests Cognition Overall Cognitive Status Impaired Orientation Level Oriented to place;Oriented to time;Oriented to person Following Commands Follows all commands and directions without difficulty RUE Assessment RUE Comment wfl with 4/5 muscle strengthj LUE Assessment LUE Comment wfl with 3+/5 muscle strength RLE Assessment RLE Comment wfl with 4/5 muscle strength LLE Assessment LLE Comment wfl with 3+/5 muscle strength Bed Mobility Rolling Min assist to right Supine to Sit Min assist to right Sit to Supine Min assist to left Transfers Sit to Stand Min assist Gait Other (Comment) patient declined to ambulate in the pm Balance Sitting - Static Min Assist Sitting - Dynamic Min Assist Standing - Static Min Assist Standing - Dynamic Min Assist Patient/Family Training Bed Mobility x Transfer Training x Assessment Personal Factors/Comorbidities Impacting Care 1-2 personal factors/comorbidities Examination of Body Systems Low (1-2 Elements) Objectives of Body Systems Impaired ambulation;Impaired transfers;Impaired bed mobility Clinical Presentation of Patient Evolving and changing characteristics Prognosis Good Recommendation PT Recommendation PT during Hospitalization;PT at [facility] PT Equipment Recommended 2 Wheeled walker Plan PT Treatments/Interventions Therapeutic Activities;Gait Training Progress Progressing toward goals PT Frequency Daily;BID PT plan for next session bed mobility, transfer and gait-training with a wheeled-walker If this is the last treatment note,it will serve as the discharge summary Yes * Lupillo Black MD - 08/25/2017 1:16 PM CDT Hospitalist Progress Note Assessment and Plan : Active Problems: Seizure SNOMED CT(R): SEIZURE Subjective Patient still very sleepy and confused. Met with hsi sister at bedside. She informed me that his home caregiver had gone to check on him when he Didn't open the door was possibly seizing inside. They had to call the apartment management to open the door he was found semi-responsive so was taken to [facility] ER. She also informed me that he is pretty independent otherwise walks with a walker after he had a CVA2 yrs back with mild left sided hemparesis Objective Blood pressure 134/81, pulse 77, temperature 98 ??F (36.7 ??C), temperature source Axillary, resp. rate 16, weight 63.8 kg (140 lb 10.5 oz), SpO2 98 %. Intake/Output last 3 shifts: I/O last 3 completed shifts: In: 350 [I.V.:350] Out: 250 [Urine:250] In general the patient is a well-developed, well-nourished, well-groomed 57-year-old year old male appearing stated age, in no acute distress. HEENT: Head normocephalic atraumatic, sclerae and conjunctivae are clear. PERRLA, EOMI and pain-free. TONGUE IS DRY Cardiac: RRR without murmer. No rubs or clicks. Chest: Breathing is nonlabored, lungs are clear throughout. Abdomen: Soft and nontender, bowel sounds are present. : Voids. Extremities: Bilateral lower extremities are free of edema, calves are soft and nontender bilaterally. Neuro: Drowsy and confused. Grossly non-focal exam> exam limited by pt's mental status Psych: Mood and judgment are appropriate. Diagnostic Data Recent Results (from the past 24 hour(s)) CBC W/DIFF AUTOMATED Collection Time: 08/25/17 6:46 AM Result Value Ref Range WBC 9.0 4.8 - 10.8 x10'3/uL RBC 4.08 (L) 4.70 - 6.10 x10'6/uL HGB 12.8 (L) 14.0 - 18.0 G/DL HCT 38.5 (L) 43.0 - 54.0 % MCV 94.4 (H) 80.0 - 94.0 FL MCH 31.4 (H) 27.0 - 31.0 PG MCHC 33.2 32.0 - 36.0 G/DL RDW 11.7 11.5 - 14.5 % PLT 161 130 - 400 x10'3/uL MPV 11.4 9.3 - 12.2 FL NEUTROPHILS 57.7 43.0 - 65.0 % LYMPHOCYTES 31.3 20.0 - 46.0 % MONOCYTES 10.2 5.0 - 12.0 % EOSINOPHILS 0.3 (L) 1.0 - 3.0 % BASOPHILS 0.2 0.0 - 1.0 % IMMATURE GRANS 0.3 0.0 - 1.0 % BASIC METABOLIC PANEL Collection Time: 08/25/17 6:46 AM Result Value Ref Range GLUCOSE 96 70 - 99 MG/DL BUN 12 7 - 18 MG/DL CREATININE 0.81 0.7 - 1.3 MG/DL SODIUM 141 136 - 145 MMOL/L POTASSIUM 3.4 (L) 3.5 - 5.1 MMOL/L CHLORIDE 108 100 - 108 MMOL/L CO2 26.0 21 - 32 MMOL/L CALCIUM 8.1 (L) 8.5 - 10.1 MG/DL ANION GAP 10.4 8 - 20 MMOL/L BUN CREATININE RATIO 14.8 6 - 26 eGFR Non-Afr. Amer. >90 >90 ML/MIN/1.73 M2 eGFR Afr. Amer. >90 >90 ML/MIN/1.73 M2 THYROID STIM HORMONE, TSH Collection Time: 08/25/17 6:46 AM Result Value Ref Range TSH 1.600 0.358 - 3.74 uIU/ML CK (CPK) Collection Time: 08/25/17 6:46 AM Result Value Ref Range CPK 6881 (H) 35 - 232 U/L No results found. Medication: ??? amlodipine 5 mg Oral Daily ??? aspirin 81 mg Oral Daily ??? enoxaparin 40 mg Subcutaneous Q24H ??? gabapentin 300 mg Oral TID ??? levETIRAcetam 1,000 mg Oral BID ??? 0.9 % NaCl with KCl 20 mEq 125 mL/hr (08/25/17 0922) acetaminophen, acetaminophen-codeine, lorazepam, ondansetron A/P 1. Recurrent seizures, Seizure d/o Prolonged post ictal phase: Pt on Keppra 1500 bid and gabapentinper sister. He is likely not taking his meds correctly so they had a home health nurse set up for medication assistance. The 1st visit for the home health was yesterday when they couldn't get into his house. He will need neuro consult for assistance. 2. 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 3. HTN: Cotnrolled CPM. 4. Acute Rhabdomyolysis without SAMANTHA: iv fluids and monitor CPK and BMP daily. Dispo home with home health when CPK < 1000 LUPILLO BLACK MD 08/25/2017 1:16 PM * Meche Rolle, OT Student - 08/25/2017 12:45 PM CDT 08/25/17 1200 Therapy Visit Ordering Provider SOFIA OT Received On (RM 411) Treatment Day 1 Reason for admission SEIZURE Comorbidities Relevant to OT HTN, HLD, CVA, SEIZURES Precautions General Precautions Bed Alarm;Chair Alarm;Fall Risk;Multiple lines Subjective Subjective PT SLEEPING AT BEGINNING OF SESSION. PT ABLE TO ANSWER QUESTIONS ABOUT PLOF, PT IS QUESTIONABLE HISTORIAN. Home Living Type of Home House Home Layout One level Home Accessibility 0 Steps to enter Bathroom Shower/Tub Walk-in shower Bathroom Toilet Standard Toilet Bathroom Equipment Tub/shower chair with back Prior Function Level of [place] Independent with ADLs Device used at baseline 2 Wheeled walker Fall History No Lives With Alone ADL Assistance Independent Comments PT IS QUESTIONABLE HISTORIAN. PT ANSWERS VARY AND CHANGE DURING SESSION. Pain Pain No Activity Tolerance Endurance Tolerates 10 - 20 min activity with rests Cognition Overall Cognitive Status Impaired Orientation Level Oriented to person;Oriented to place Following Commands Follows one step commands with repetition Overall Extremity Assessment Upper Extremity GROSSLY WFL, PT UNABLE TO COMPLETE FORMAL ROM ASSESSMENT Hand Function Gross Grasp Functional Coordination Functional ADL Eating Assistance Stand by Eating Deficit Supervision/safety;Verbal cueing;Setup Grooming Assistance Minimal Grooming Deficit Supervision/safety;Verbal cueing;Setup (MIN FOR INITIATION) Bathing Assistance Moderate (SIM SPONGE) Bathing Deficit Perineal area;Buttocks;Supervision/safety;Verbal cueing;Steadying;Setup;Right upperleg;Left upper leg UE Dressing Assistance Minimal UE Dressing Deficit Verbal cueing;Supervision/safety (MIN ASSIST FOR INITIATION) LE Dressing Assistance Moderate LE Dressing Deficit Pull up over hips;Increased time to complete;Verbal cueing;Steadying;Fasteners (ASSIST FOR ORIENTATION OF CLOTHING) Toileting Assistance Maximal Toileting Deficit Clothing management down;Clothing management up;Perineal hygiene;Supervision/safety;Verbal cueing;Steadying Additional Comments PT DEMO CONFUSION AND DECREASED AWARENESS OF SITUATION. PT NEEDS VERBAL CUES AND ASSIST TO INITIATE PARTICIPATE IN ADLS. PT REQUIRES ASSIST FOR ORIENTATION OF CLOTHING / CLOTHES MANAGMENT. Bed Mobility Rolling Modified independence Supine to Sit Modified independence Functional Transfers Sit to Stand Mod assist;Assist of 2 Bed to Chair Mod assist;Assist of 2 Other (Comment) PT COMPLETED XFER WITH MOD ASSIST OF 2 AND WW. EOB->RECLINER APPROX 4'. ASSIST OF 2 FOR BALANCE AND SAFETY Balance Sitting - Static Min Assist Sitting - Dynamic Min Assist Standing - Static Mod Assist;Assist of 2 Persons Standing - Dynamic Mod Assist;Assist of 2 Persons Assessment Occupational Profile and History Complexity Moderate (Expanded) Performance Skills Deficits Bathing/showering;Dressing;Functional mobility;Toileting Performance Deficit Level Moderate (3-5 deficitis) Clinical Decision Making Moderate (min/mod modifications) Complexity Level of Evaluation Moderate Prognosis Good Patient/Family Training Self Cares X Transfer Training X DME Education X Precautions X Other (Comment) 1:1 Recommendation OT Recommendation OT during Hospitalization;OT at [facility];24 hour supervision/assist Plan OT Treatment/Intervention Self care training;Therapeutic Exercises;Therapeutic Activities;Patient/Family training;Functional Activity;Safety OT Frequency 3 times/week OT plan for next session OT TO ADDRESS ADLS, FUNCT XFERS, UE THEREX, STRENGTH, BALANCE, ENDURANCE, ACTIVITY TOLERANCE, AE/DME EDU, AND SAFETY If this is the last treatment note,it will serve as the discharge summary Yes Objective Objective BASED ON EVAL [id number] PT IS PLEASANTLY CONFUSED 57 YO GENTLEMAN ADMITTED 2/2 SEIZURE. PT IS QUESTIONABLE HISTORIAN. 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 PT IS CURRENTLY MOD/MAX ASSIST FOR ADLS AND FUNCT XFERS. PT WOULD BENEFIT FROM CONTINUED SKILLED OT AND SNF PLACEMENT PENDING PROGRESS AND MEDICAL STATUS. YURI ROLLE OTS Cosigned by Lacie Gilbert OTR at 08/25/2017 12:53 PM CDT * Sofía Rothman RN - 08/25/2017 10:09 AM CDT 08/25/17 1009 Seizures s/p remains post-ical unable to arouse for interview will reasses at a later time. YM * Bharat Blackmon RN - 08/25/2017 2:27 AM CDT There is question as to if the home medication list provided from the outside hospital is correct. This RN will pass the information on to the dayshift, with the hope that family will be able to clarify. At this present time the med rec is not complete. BHARAT BLACKMON RN * Bharat Blackmon RN - 08/25/2017 1:59 AM CDT Admission filled out to the best of this RN's ability. The patient is not responding at this time with the exception of his name. As patient becomes more alert and reoriented another attempt will be made. BHARAT BLACKMON RN documented in this encounter H&P Notes * Cristina Rivera III, MD - 08/25/2017 6:49 AM CDT Attending Provider: Cristina Rivera III, MD PCP: PORTER Pat Anthony Tabor is an 57-year-old male. Reason for Admission: Seizure HPI: Pt is a 57yo Black male with a PMH including Prior CVA with resultant dysarthria and left sided weakness Seizure d/o associated with prior CVA DL HTN History obtained from EMR as pt is lethargic/post-ictal. He was apparently found down at home, after an extended amount of time/overnight, and assumed to have had a seizure leading up to this. He hadanother witnessed seizure at home, and more seizures at [facility]. CPK 4650. ER doc informed me that pt was on Keppra 500mg BID at home and that neurology had recommended 1g Keppra, then to be placed on 1g BID. He also received IV Ativan. Records show however that pt's home dose is Keppra 1500mg BID. Alcohol/utox normal. Cr 0.8. WBC 13. Pt on arrival here is mostly sedated/post-ictal. Past Medical History: Diagnosis Date ??? HLD (hyperlipidemia) ??? Hypertension ??? Seizures ??? Seizures ??? Stroke lt side weakness Allergies: No Known Allergies Social History Substance Use Topics ??? Smoking status: Current Every Day Smoker ??? Smokeless tobacco: Never Used ??? Alcohol use No No past surgical history on file. No family history on file. Travel Exposure: No current facility-administered medications on file prior to encounter. Current Outpatient Prescriptions on File Prior to Encounter Medication Sig ??? acetaminophen-codeine 300-30 MG tablet Take 1 tablet by mouth every 6 (six) hours as needed forPain. ??? amlodipine 5 MG tablet Take 5 mg by mouth daily. ??? aspirin 81 MG chewable tablet Chew 81 mg by mouth daily. ??? gabapentin 300 MG capsule Take 300 mg by mouth 3 (three) times daily. ??? levETIRAcetam 1000 MG tablet Take 1,500 mg by mouth 2 (two) times daily. Active Problems: Seizure SNOMED CT(R): SEIZURE Blood pressure 111/70, pulse 84, temperature 98.5 ??F (36.9 ??C), temperature source Axillary, resp. rate 18, weight 63.8 kg (140 lb 10.5 oz), SpO2 100 %. Review of Systems Reason unable to perform ROS: Pt sedated/post ictal. Physical Exam Constitutional: He appears well-developed and well-nourished. No distress. HENT: Head: Normocephalic and atraumatic. Right Ear: External ear normal. Left Ear: External ear normal. Edema above right eye; lipoma posterior left scalp Eyes: Conjunctivae are normal. Right eye exhibits no discharge. Left eye exhibits no discharge. No scleral icterus. Neck: Normal range of motion. Neck supple. No JVD present. No tracheal deviation present. No thyromegaly present. Cardiovascular: Normal rate, regular rhythm and [...] and no guarding. Musculoskeletal: He exhibits no edema. Pt does not follow commands to test MSK Lymphadenopathy: He has no cervical adenopathy. Neurological: Asleep/lethargic/post-ictal Skin: Skin is warm and dry. No rash noted. He is not diaphoretic. No erythema. Vitals reviewed. Assessment 1. Seizure d/o, home dose Keppra is 1500mg BID 2. History of CVA with resultant left sided weakness and severe dysarhtria 3. HTN 4. Rhabdo without kidney failure Plan: 1. Consult neuro; Dr Hancock had asked for Keppra 1g BID but he was under impression home dose was 500mg BID 2. IV Keppra while pt is lethargic 3. Ativan PRN seizures 4. IVF, trend CPK 5. Cont home ASA 6. Cont home amlodipine FEN No IVF Gen diet Proph Lovenox CRISTINA RIVERA III, MD 08/25/2017 documented in this encounter Procedure Notes * Caryl Hancock MD - 08/28/2017 12:00 AM CDT REFERRED BY: Caryl Hancock MD CLINICAL HISTORY: Seizure disorder. LOG NUMBER: [id number] This is a routine 20-channel digital EEG. The background consisted of well- formed 8-9 Hz alpha activity. The record is symmetrical with no focal or proximal features. Hyperventilation and photic stimulation revealed no abnormality. IMPRESSION: Normal record. #[id number] / documented in this encounter Consult Notes * Caryl Hancock MD - 08/26/2017 12:00 AM CDT REFERRED BY: Eliseo Buckley MD I saw, Bi Tabor, today on August 26, 2017 for breakthrough seizure. Yesterday, I increased theKeppra to 1750 mg b.i.d. and he has [...] per you. Thank you for the consult. #[id number] / * Caryl Hancock MD - 08/25/2017 12:00 AM CDTAssociated Order(s): IP CONSULT TO NEUROLOGY REFERRED BY: Lupillo Black MD HISTORY OF PRESENT ILLNESS: I saw patient Bi Tabor who is transferred from [facility] for seizure. Patient is mentally challenged [...] unresponsive at home. He was taken to [facility] from there. They transferred him here [...] to Dilantin. Thank you for the consult. #[id number] / documented in this encounter Plan of Treatment Not on file documented as of this encounter Procedures Procedure Name Priority Date/Time Associated Diagnosis Comments COMPREHENSIVE METABOLIC PANEL Routine 08/28/2017 6:04 AM CDT CBC W/DIFF AUTOMATED Routine 08/28/2017 6:04 AM CDT CK (CPK) Routine 08/28/2017 6:04 AM CDT POCT GLUCOSE - SANDOVAL DOCKED DEVICE Routine 08/27/2017 9:24 PM CDT POCT GLUCOSE - SANDOVAL DOCKED DEVICE Routine 08/27/2017 4:11 PM CDT CK (CPK) Routine 08/27/2017 12:27 PM CDT POCT GLUCOSE - SANDOVAL DOCKED DEVICE Routine 08/27/2017 11:23 AM CDT POCT GLUCOSE - SANDOVAL DOCKED DEVICE Routine 08/27/2017 6:53 AM CDT COMPREHENSIVE METABOLIC PANEL Routine 08/27/2017 5:39 AM CDT CBC W/DIFF AUTOMATED Routine 08/27/2017 5:39 AM CDT CK (CPK) Routine 08/27/2017 5:39 AM CDT POCT GLUCOSE - SANDOVAL DOCKED DEVICE Routine 08/26/2017 8:44 PM CDT COMPREHENSIVE METABOLIC PANEL Routine 08/26/2017 6:13 AM CDT CK (CPK) Routine 08/26/2017 6:13 AM CDT EEG SLEEP DEPRIVED Routine 08/25/2017 1: 38 PM CDT BASIC METABOLIC PANEL Routine 08/25/2017 6:46 AM CDT CBC W/DIFF AUTOMATED Routine 08/25/2017 6:46 AM CDT THYROID STIM HORMONE TSH Routine 08/25/2017 6:46 AM CDT CK (CPK) TIMED 08/25/2017 6:46 AM CDT documented in this encounter Results * (ABNORMAL) CBC W/DIFF AUTOMATED (08/28/2017 6:04 AM CDT) WBC 5.5 4.8 - 10.8 x10'3/uL 08/28/2017 7:06 AM CDT [facility] RBC 4.15(L) 4.70 - 6.10 x10'6/uL 08/28/2017 7:06 AM CDT [facility] HGB 13.0(L) 14.0 - 18.0 G/DL 08/28/2017 7:06 AM CDT [facility] HCT 39.4(L) 43.0 - 54.0 % 08/28/2017 7:06 AM CDT [facility] MCV 94.9(H) 80.0 - 94.0 FL 08/28/2017 7:06 AM CDT [facility] MCH 31.3(H) 27.0 - 31.0 PG 08/28/2017 7:06 AM CDT [facility] MCHC 33.0 32.0 - 36.0 G/DL 08/28/2017 7:06 AM CDT [facility] RDW 11.5 11.5 - 14.5 % 08/28/2017 7:06 AM CDT [facility] PLT 158 130 - 400 x10'3/uL 08/28/2017 7:06 AM CDT [facility] MPV 12.0 9.3 - 12.2 FL 08/28/2017 7:06 AM CDT [facility] NEUTROPHILS % 47.9 43.0 - 65.0 % 08/28/2017 7:06 AM CDT [facility] LYMPHOCYTES % 40.8 20.0 - 46.0 % 08/28/2017 7:06 AM CDT [facility] MONOCYTES % 8.7 5.0 - 12.0 % 08/28/2017 7:06 AM CDT [facility] EOSINOPHILS 2.2 1.0 - 3.0 % 08/28/2017 7:06 AM CDT [facility] BASOPHILS 0.2 0.0 - 1.0 % 08/28/2017 7:06 AM CDT [facility] IMMATURE GRANS % 0.2 0.0 - 1.0 % 08/28/2017 7:06 AM CDT [facility] 08/28/2017 6:04 AM CDT us Eliseo Buckley MD LABORATORY Final Result [facility] [address] [place] [address], [place] [phone] * (ABNORMAL) COMPREHENSIVE METABOLIC PANEL (08/28/2017 6:04 AM CDT) Pathologist [facility] GLUCOSE 86 70 - 99 MG/DL 08/28/2017 7:26 AM T [facility] BUN 10 7 - 18 MG/DL 08/28/2017 7:26 AM T [facility] CREATININE S/P/B 0.66(L) 0.7 - 1.3 MG/DL 08/28/2017 7:26 AM [facility] SODIUM S/P/B 143 136 - 145 MMOL/L 08/28/2017 7:26 AM T [facility] POTASSIUM S/P/B 3.9 3.5 - 5.1 MMOL/L 08/28/2017 7:26 AM T [facility] CHLORIDE S/P/B 113(H) 100 - 108 MMOL/L 08/28/2017 7:26 AM [facility] CO2 23.9 21 - 32 MMOL/L 08/28/2017 7:26 AM [facility] CALCIUM S/P/B 7.9(L) 8.5 - 10.1 MG/DL 08/28/2017 7:26 AM T [facility] BILIRUBIN TOTAL S/P/B 0.3 0.2 - 1.2 MG/DL 08/28/2017 7:26 AM [facility] TOTAL PROTEIN S/P/B 5.9(L) 6.4 - 8.2 G/DL 08/28/2017 7:26 AM T [facility] ALBUMIN S/P/B 3.1(L) 3.4 - 5.0 G/DL 08/28/2017 7:26 AM T [facility] AST 44(H) 15 - 37 U/L 08/28/2017 7:26 AM T [facility] ALT 32 16 - 60 U/L 08/28/2017 7:26 AM T [facility] ALKALINE PHOSPHATASE S/P/B 76 50 - 136 U/L 08/28/2017 7:26 AM CDT [facility] ANION GAP 10.0 8 - 20 MMOL/L 08/28/2017 7:26 AM CDT [facility] BUN CREATININE RATIO 15.2 6 - 26 08/28/2017 7:26 AM CDT [facility] A/G RATIO 1.1 1.0 - 2.0 RATIO 08/28/2017 7:26 AM CDT [facility] EGFR NON-AFR. AMER. >90 >90 ML/MIN/1.7 3 M2 08/28/2017 7:26 AM CDT [facility] EGFR AFR. AMER. >90 >90 ML/MIN/1.7 3 M2 08/28/2017 7:26 AM CDT [facility] Comment: NOTE: eGFR is not calculated for patients <18 years of age. This is an estimated GFR (CKD EPI) and should not be used for calculating drug doses. 08/28/2017 6:04 AM CDT us Lupillo Black MD LABORATORY Final Result [facility] [address] [place], [place] [address], [place] [phone] * (ABNORMAL) CK (CPK) (08/28/2017 6:04 AM CDT) CPK 1,251(H) 35 - 232 U/L 08/28/2017 7:26 AM CDT [facility] 08/28/2017 6:04 AM CDT us Eliseo Buckley MD LABORATORY Final Result [facility] [address] [place] [address], [place] [phone] * (ABNORMAL) POCT glucose (08/27/2017 9:24 PM CDT) GLUCOSE POC 112(H) 70 - 99 mg/dL 08/27/2017 9:54 PM CDT [facility] ORDERS INTERFACE 08/27/2017 9:24 PM CDT Cristina Rivera III, MD POCT ORDERABLES - DEVIC E Final Result [facility] ORDERS INTERFACE US * POCT glucose (08/27/2017 4:11 PM CDT) GLUCOSE POC 90 70 - 99 mg/dL 08/27/2017 4:21 PM CDT [facility] ORDERS INTERFACE 08/27/2017 4:11 PM CDT Cristina Rivera III, MD POCT ORDERABLES - DEVIC E Final Result [facility] ORDERS INTERFACE * (ABNORMAL) CK (CPK) (08/27/2017 12:27 PM CDT) CPK 2,468(H) 35 - 232 U/L 08/27/2017 1:22 PM CDT [facility] 08/27/2017 12:2 7 PM CDT Eliseo Buckley MD LABORATORY Final Result [facility] [address] [place] [address], [place] [phone] * (ABNORMAL) POCT glucose (08/27/2017 11:23 AM CDT) GLUCOSE POC 104(H) 70 - 99 mg/dL 08/27/2017 11:28 AM CDT [facility] ORDERS INTERFACE 08/27/2017 11:2 3 AM CDT us Cristina Rivera III, MD POCT ORDERABLES - DEVIC E Final Result Performing Organization Address City/[facility]/ZIP Co de Phone Number [facility] ORDERS INTERFACE US * POCT glucose (08/27/2017 6:53 AM CDT) Pathologist [facility] GLUCOSE POC 89 70 - 99 mg/dL 08/27/2017 7:00 AM CDT [facility] ORDERS INTERFACE 08/27/2017 6:53 AM CDT us Cristina Rivera III, MD POCT ORDERABLES - DEVIC E Final Result Performing Organization Address [facility] Co de Phone Number [facility] ORDERS INTERFACE US * (ABNORMAL) CBC W/DIFF AUTOMATED (08/27/2017 5:39 AM CDT) [facility] WBC 7.1 4.8 - 10.8 x10'3/uL 08/27/2017 7:32 AM CDT [facility] RBC 4.31(L) 4.70 - 6.10 x10'6/uL 08/27/2017 7:32 AM CDT [facility] HGB 13.6(L) 14.0 - 18.0 G/DL 08/27/2017 7:32 AM CDT [facility] HCT 40.4(L) 43.0 - 54.0 % 08/27/2017 7:32 AM CDT [facility] MCV 93.7 80.0 - 94.0 FL 08/27/2017 7:32 AM CDT [facility] MCH 31.6(H) 27.0 - 31.0 PG 08/27/2017 7:32 AM CDT [facility] MCHC 33.7 32.0 - 36.0 G/DL 08/27/2017 7:32 AM CDT [facility] RDW 11.3(L) 11.5 - 14.5 % 08/27/2017 7:32 AM CDT [facility] PLT 127(L) 130 - 400 x10'3/uL 08/27/2017 7:32 AM CDT [facility] MPV 11.6 9.3 - 12.2 FL 08/27/2017 7:32 AM CDT [facility] NEUTROPHILS % 48.2 43.0 - 65.0 % 08/27/2017 7:32 AM CDT [facility] LYMPHOCYTES % 40.4 20.0 - 46.0 % 08/27/2017 7:32 AM CDT [facility] MONOCYTES % 9.8 5.0 - 12.0 % 08/27/2017 7:32 AM CDT [facility] EOSINOPHILS 1.1 1.0 - 3.0 % 08/27/2017 7:32 AM CDT [facility] BASOPHILS 0.4 0.0 - 1.0 % 08/27/2017 7:32 AM CDT [facility] IMMATURE GRANS % 0.1 0.0 - 1.0 % 08/27/2017 7:32 AM CDT [facility] 08/27/2017 5:39 AM CDT us Eliseo Buckley MD LABORATORY Final Result [facility] [address] [place] [address], [place] [phone] * (ABNORMAL) COMPREHENSIVE METABOLIC PANEL (08/27/2017 5:39 AM CDT) GLUCOSE 93 70 - 99 MG/DL 08/27/2017 12:01 PM CDT [facility] BUN 9 7 - 18 MG/DL 08/27/2017 12:01 PM [facility] CREATININE S/P/B 0.76 0.7 - 1.3 MG/DL 08/27/2017 12:01 PM [facility] SODIUM S/P/B 140 136 - 145 MMOL/L 08/27/2017 12:01 PM [facility] POTASSIUM S/P/B 3.6 3.5 - 5.1 MMOL/L 08/27/2017 12:01 PM [facility] CHLORIDE S/P/B 111(H) 100 - 108 MMOL/L 08/27/2017 12:01 PM [facility] CO2 18.9(L) 21 - 32 MMOL/L 08/27/2017 12:01 PM [facility] CALCIUM S/P/B 8.4(L) 8.5 - 10.1 MG/DL 08/27/2017 12:01 PM [facility] BILIRUBIN TOTAL S/P/B 0.4 0.2 - 1.2 MG/DL 08/27/2017 12:01 PM [facility] TOTAL PROTEIN S/P/B 6.7 6.4 - 8.2 G/DL 08/27/2017 12:01 PM [facility] ALBUMIN S/P/B 3.4 3.4 - 5.0 G/DL 08/27/2017 12:01 PM [facility] AST 78(H) 15 - 37 U/L 08/27/2017 12:01 PM [facility] ALT 41 16 - 60 U/L 08/27/2017 12:01 PM [facility] ALKALINE PHOSPHATASE S/P/B 77 50 - 136 U/L 08/27/2017 12:01 PM CDT [facility] ANION GAP 13.7 8 - 20 MMOL/L 08/27/2017 12:01 PM CDT [facility] BUN CREATININE RATIO 11.8 6 - 26 08/27/2017 12:01 PM CDT [facility] A/G RATIO 1.0 1.0 - 2.0 RATIO 08/27/2017 12:01 PM CDT [facility] EGFR NON-AFR. AMER. >90 >90 ML/MIN/1.7 3 M2 08/27/2017 12:01 PM CDT [facility] EGFR AFR. AMER. >90 >90 ML/MIN/1.7 3 M2 08/27/2017 12:01 PM T [facility] Comment: NOTE: eGFR is not calculated for patients <18 years of age. This is an estimated GFR (CKD EPI) and should not be used for calculating drug doses. 08/27/2017 5:39 AM CDT Lupillo Black MD LABORATORY Final Result [facility] [address] [place] [address], [place] [phone] * (ABNORMAL) CK (CPK) (08/27/2017 5:39 AM CDT) CPK 3,109(H) 35 - 232 U/L 08/27/2017 12:01 PM CDT [facility] 08/27/2017 5:39 AM CDT Lupillo Black MD LABORATORY Final Result [facility] [address] [place] [address], [place] [phone] * POCT glucose (08/26/2017 8:44 PM CDT) GLUCOSE POC 96 70 - 99 mg/dL 08/26/2017 8:56 PM CDT [facility] ORDERS INTERFACE 08/26/2017 8:44 PM CDT Cristina Rivera III, MD POCT ORDERABLES - DEVIC E Final Result [facility] ORDERS INTERFACE US * (ABNORMAL) COMPREHENSIVE METABOLIC PANEL (08/26/2017 6:13 AM CDT) GLUCOSE 104(H) 70 - 99 MG/DL 08/26/2017 7:40 AM CDT [facility] BUN 11 7 - 18 MG/DL 08/26/2017 7:40 AM CDT [facility] CREATININE S/P/B 0.73 0.7 - 1.3 MG/DL 08/26/2017 7:40 AM CDT [facility] SODIUM S/P/B 143 136 - 145 MMOL/L 08/26/2017 7:40 AM CDT [facility] POTASSIUM S/P/B 3.5 3.5 - 5.1 MMOL/L 08/26/2017 7:40 AM CDT [facility] CHLORIDE S/P/B 111(H) 100 - 108 MMOL/L 08/26/2017 7:40 AM CDT [facility] CO2 26.8 21 - 32 MMOL/L 08/26/2017 7:40 AM CDT [facility] CALCIUM S/P/B 8.3(L) 8.5 - 10.1 MG/DL 08/26/2017 7:40 AM CDT [facility] BILIRUBIN TOTAL S/P/B 0.6 0.2 - 1.2 MG/DL 08/26/2017 7:40 AM CDT [facility] TOTAL PROTEIN S/P/B 6.1(L) 6.4 - 8.2 G/DL 08/26/2017 7:40 AM T [facility] ALBUMIN S/P/B 3.4 3.4 - 5.0 G/DL 08/26/2017 7:40 AM T [facility] AST 110(H) 15 - 37 U/L 08/26/2017 7:40 AM T [facility] ALT 38 16 - 60 U/L 08/26/2017 7:40 AM T [facility] ALKALINE PHOSPHATASE S/P/B 69 50 - 136 U/L 08/26/2017 7:40 AM T [facility] ANION GAP 8.7 8 - 20 MMOL/L 08/26/2017 7:40 AM T [facility] BUN CREATININE RATIO 15.0 6 - 26 08/26/2017 7:40 AM T [facility] A/G RATIO 1.3 1.0 - 2.0 RATIO 08/26/2017 7:40 AM [facility] LAB EGFR NON-AFR. AMER. >90 >90 ML/MIN/1.7 3 M2 08/26/2017 7:40 AM T [facility] EGFR AFR. AMER. >90 >90 ML/MIN/1.7 3 M2 08/26/2017 7:40 AM T [facility] Comment: NOTE: eGFR is not calculated for patients <18 years of age. This is an estimated GFR (CKD EPI) and should not be used for calculating drug doses. 08/26/2017 6:13 AM CDT us Lupillo Black MD LABORATORY Final Result [facility] [address] [place] [address], * (ABNORMAL) CK (CPK) (08/26/2017 6:13 AM CDT) CPK 5,216(H) 35 - 232 U/L 08/26/2017 7:40 AM CDT [facility] 08/26/2017 6:13 AM CDT Lupillo Black MD LABORATORY Final Result [facility] [address] [place] [address], * (ABNORMAL) CK (CPK) (08/25/2017 6:46 AM CDT) CPK 6,881(H) 35 - 232 U/L 08/25/2017 7:50 AM CDT [facility] 08/25/2017 6:46 AM CDT Cristina Rivera III, MD LABORATORY Final R esult [facility] [address] [place] [address], * THYROID STIM HORMONE, TSH (08/25/2017 6:46 AM CDT) TSH 1.600 0.358 - 3.74 uIU/ML 08/25/2017 7:50 AM CDT [facility] Comment: HIGH DOSES OF BIOTIN MAY INTERFERE WITH THIS TEST RESULT. CORRELATION TO CLINICAL HISTORY AND PRESENTATION RECOMMENDED. 08/25/2017 6:46 AM CDT us Cristina Rivera III, MD LABORATORY Final R esult [facility] [address] [place] [address], [place] [phone] * (ABNORMAL) BASIC METABOLIC PANEL (08/25/2017 6:46 AM CDT) [facility] GLUCOSE 96 70 - 99 MG/DL 08/25/2017 7:50 AM CDT [facility] BUN 12 7 - 18 MG/DL 08/25/2017 7:50 AM CDT [facility] CREATININE S/P/B 0.81 0.7 - 1.3 MG/DL 08/25/2017 7:50 AM CDT [facility] SODIUM S/P/B 141 136 - 145 MMOL/L 08/25/2017 7:50 AM CDT [facility] POTASSIUM S/P/B 3.4(L) 3.5 - 5.1 MMOL/L 08/25/2017 7:50 AM CDT [facility] CHLORIDE S/P/B 108 100 - 108 MMOL/L 08/25/2017 7:50 AM CDT [facility] CO2 26.0 21 - 32 MMOL/L 08/25/2017 7:50 AM CDT [facility] CALCIUM S/P/B 8.1(L) 8.5 - 10.1 MG/DL 08/25/2017 7:50 AM CDT [facility] ANION GAP 10.4 8 - 20 MMOL/L 08/25/2017 7:50 AM CDT [facility] BUN CREATININE RATIO 14.8 6 - 26 08/25/2017 7:50 AM CDT [facility] EGFR NON-AFR. AMER. >90 >90 ML/MIN/1.7 3 M2 08/25/2017 7:50 AM CDT [facility] EGFR AFR. AMER. >90 >90 ML/MIN/1.7 3 M2 08/25/2017 7:50 AM CDT [facility] Comment: NOTE: eGFR is not calculated for patients <18 years of age. This is an estimated GFR (CKD EPI) and should not be used for calculating drug doses. 08/25/2017 6:46 AM CDT Cristina Rivera III, MD LABORATORY Final R esult [facility] [address] [place] [address], * (ABNORMAL) CBC W/DIFF AUTOMATED (08/25/2017 6:46 AM CDT) WBC 9.0 4.8 - 10.8 x10'3/uL 08/25/2017 7:08 AM CDT [facility] RBC 4.08(L) 4.70 - 6.10 x10'6/uL 08/25/2017 7:08 AM CDT [facility] HGB 12.8(L) 14.0 - 18.0 G/DL 08/25/2017 7:08 AM CDT [facility] HCT 38.5(L) 43.0 - 54.0 % 08/25/2017 7:08 AM CDT [facility] MCV 94.4(H) 80.0 - 94.0 FL 08/25/2017 7:08 AM CDT [facility] MCH 31.4(H) 27.0 - 31.0 PG 08/25/2017 7:08 AM CDT [facility] MCHC 33.2 32.0 - 36.0 G/DL 08/25/2017 7:08 AM CDT [facility] RDW 11.7 11.5 - 14.5 % 08/25/2017 7:08 AM CDT [facility] PLT 161 130 - 400 x10'3/uL 08/25/2017 7:08 AM CDT [facility] MPV 11.4 9.3 - 12.2 FL 08/25/2017 7:08 AM CDT [facility] NEUTROPHILS % 57.7 43.0 - 65.0 % 08/25/2017 7:08 AM CDT [facility] LYMPHOCYTES % 31.3 20.0 - 46.0 % 08/25/2017 7:08 AM CDT [facility] MONOCYTES % 10.2 5.0 - 12.0 % 08/25/2017 7:08 AM CDT [facility] EOSINOPHILS 0.3(L) 1.0 - 3.0 % 08/25/2017 7:08 AM CDT [facility] BASOPHILS 0.2 0.0 - 1.0 % 08/25/2017 7:08 AM CDT [facility] IMMATURE GRANS % 0.3 0.0 - 1.0 % 08/25/2017 7:08 AM CDT [facility] 08/25/2017 6:46 AM CDT Cristina Rivera III, MD LABORATORY Final R esult [facility] [address] [place] [address], [place] [phone] documented in this encounter Visit Diagnoses Diagnosis Seizure (CMS/HCC HHS/HCC) Other convulsions documented in this encounter Administered Medications Inactive Administered Medications - up to 3 most recent administrations Medication Order MAR Action Action Date Dose Rate Site 0.9 % NaCl with KCl 20 mEq infusion at 125 mL/hr, Intravenous, Continuous, Starting on Marian 08/25/17 at 0900, Until 08/28/17 at 1836 New Bag 08/28/2017 9:41 AM CDT 125 mL/hr 125 mL/hr New Bag 08/28/2017 1:06 AM CDT 125 mL/hr 125 mL/hr New Bag 08/26/2017 9:06 AM CDT 125 mL/hr 125 mL/hr Ri ght Arm acetaminophen (TYLENOL) tablet 650 mg 650 mg, Oral, Every 6 hours PRN, Mild pain (Scale 1 - 3), Starting on [facility] 08/25/17 at 0123, Until [place] 08/28/17 at 1836, Maximum dose of acetaminophen is 4000 mg from all sources in 24 hours. Given 08/28/2017 9:52 AM CDT 650 mg amlodipine (NORVASC) tablet 5 mg 5 mg, Oral, Daily, First dose on [facility] 08/25/17 at 0900, Until Discontinued Given 08/28/2017 9:41 AM CDT 5 mg Given 08/27/2017 9:02 AM CDT 5 mg Given 08/26/2017 9:06 AM CDT 5 mg aspirin chewable tablet 81 mg 81 mg, Oral, Daily, First dose on [facility] 08/25/17 at 0900, Until Discontinued Given 08/28/2017 9:41 AM CDT 81 mg Given 08/27/2017 9:02 AM CDT 81 mg Given 08/26/2017 9:06 AM CDT 81 mg enoxaparin (LOVENOX) syringe 40 mg 40 mg, Subcutaneous, Every 24 hours, First dose on [facility] 08/25/17 at 0145, Until Discontinued Given 08/27/2017 11:41 PM CDT 40 mg Given 08/27/2017 12:24 AM CDT 40 mg Given 08/26/2017 1:48 AM CDT 40 mg gabapentin (NEURONTIN) capsule 300 mg 300 mg, Oral, 3 times daily, First dose on [facility] 08/25/17 at 0900, Until Discontinued Given 08/28/2017 9:41 AM CDT 300 mg Given 08/27/2017 9:00 PM CDT 300 mg Given 08/27/2017 5:42 PM CDT 300 mg levETIRAcetam (KEPPRA) 1,500 mg in sodium chloride 0.9 % 100 mL IVPB 1,500 mg, Intravenous, at 400 mL/hr, Every 12 hours scheduled (2 times per day), First dose (after last modification) on Tue08/25/17 at 0915, Until Discontinued New 08/25/2017 9:22 AM CDT 1,500 mg 400 mL/hr levETIRAcetam (KEPPRA) tablet 1,750 mg 1,750 mg, Oral, 2 times daily, First dose (after last modification) on Tue08/25/17 at 2100, Until Discontinued Given 08/26/2017 9:06 AM CDT 1,750 mg Given 08/25/2017 10:00 PM CDT 1,750 mg levETIRAcetam (KEPPRA) tablet 2,000 mg 2,000 mg, Oral, 2 times daily, First dose (after last modification) on Tue08/26/17 at 2100, Until Discontinued Given 08/28/2017 9:41 AM CDT 2,000 mg Given 08/27/2017 9:00 PM CDT 2,000 mg Given 08/27/2017 9:02 AM CDT 2,000 mg lorazepam (ATIVAN) injection 1 mg 1 mg, Intravenous, Every 4 hours PRN, Seizures, Starting on Tue08/25/17 at 0851, Until Tue08/28/17 at 1836, For IV use, further dilute with an equal volume of saline. sodium chloride 0.9% bolus infusion SOLN 1,000 mL 1,000 mL, Intravenous, Administer over 60 Minutes, Once, 1 dose, On Tue08/27/17 at 0845 08/27/2017 9:02 AM CDT 1,000 mLs sodium chloride 0.9% bolus infusion SOLN 500 mL 500 mL, Intravenous, Administer over 30 Minutes, Once, 1 dose, On Tue08/26/17 at 0930 New 08/26/2017 12:23 PM CDT 500 mLs 500 mL/hr Right Arm sodium chloride 0.9% infusion at 150 mL/hr, Intravenous, Continuous, Starting on Tue08/25/17 at 0145, Until Tue08/25/17 at 0838 New 08/25/2017 2:47 AM CDT 125 mL/hr sodium chloride 0.9% infusion at 1,000 mL/hr, Intravenous, Once, 1 dose, On 3/31/18 at 1815 New Bag 08/27/2017 11:41 PM CDT 1000 mL/hr documented in this encounter Active and Recently Administered Medications Times are shown in CDT. Scheduled Medication Order 08/26/2017 08/27/2017 08/28/2017 amlodipine (NORVASC) tablet 5 mg 5 mg, Oral, Daily, First dose on Marian 08/25/17 at 0900, Until Discontinued 09 (Given - Provider: Kami Lloyd RN) 09 (Given - Provider: Loraine Staley RN) 0941 (Given - Provider: Loraine Staley RN) aspirin chewable tablet 81 mg 81 mg, Oral, Daily, First dose on Marian 08/25/17 at 0900, Until Discontinued 09 (Given - Provider: Kami Lloyd RN) 09 (Given - Provider: Loraine Staley RN) 0941 (Given - Provider: Loraine Staley RN) enoxaparin (LOVENOX) syringe 40 mg(Linked Group 1) 40 mg, Subcutaneous, Every 24 hours, First dose on Marian 08/25/17 at 0145, Until Discontinued 0148 (Given - Provider: Maria Eugenia Garcia RN) 0024 (Given - Provider: Maria Eugenia Garcia RN)2341 (Given - Provider: Scar Mayes RN - Comment: patient requested to not be woken up at 0100 when scheduled) gabapentin (NEURONTIN) capsule 300 mg 300 mg, Oral, 3 times daily, First dose on Marian 08/25/17 at 0900, Until Discontinued 09 (Given - Provider: Kami Lloyd RN)1712 (Given - Provider: Kami Lloyd RN)2156 (Given - Provider: Maria Eugenia Garcia RN) 0902 (Given - Provider: Loraine Staley, ALFRED)1742 (Given - Provider: Loraine Staley RN)2100 (Given - Provider: Scar Mayes RN) 0941 (Given - Provider: Loraine Staley RN)1600 (Canceled Entry - Provider: Automatic Discharge Provider - Comment: Automatically canceled at discontinue of medication order) levETIRAcetam (KEPPRA) tablet 1,750 mg (CANCELED) 1,750 mg, Oral, 2 times daily, First dose (after last modification) on Marian 08/25/17 at 2100, Until Discontinued 09 (Given - Provider: Kami Lloyd RN) levETIRAcetam (KEPPRA) tablet 2,000 mg 2,000 mg, Oral, 2 times daily, First dose (after last modification) on Tue08/26/17 at 2100, Until Discontinued 215 (Given - Provider: Maria Eugenia Garcia RN) 0902 (Given - Provider: Loraine Staley RN)2100 (Given - Provider: Scar Mayes RN) 0941 (Given - Provider: Loraine Staley RN) sodium chloride 0.9% bolus infusion SOLN 1,000 mL (COMPLETED) 1,000 mL, Intravenous, Administer over 60 Minutes, Once, 1 dose, On 08/27/17 at 0845 0902 (New Bag - Provider: Loraine Staley RN)1002 (Infusion Stop Time - Provider: Loraine Staley RN) sodium chloride 0.9% bolus infusion SOLN 500 mL (COMPLETED) 500 mL, Intravenous, Administer over 30 Minutes, Once, 1 dose, On Tue08/26/17 at 0930 1223 (New Bag - Provider: Kami Lloyd RN)1250 (Infusion Stop Time - Provider: Kami Lloyd RN) sodium chloride 0.9% infusion (COMPLETED) at 1,000 mL/hr, Intravenous, Once, 1 dose, On 08/27/17 at 1815 2341 (New Bag - Provider: Scar Mayes RN) 0106 (Infusion Stop Time - Provider: Scar Mayes RN) Continuous Medication Order 08/26/2017 08/27/2017 08/28/2017 0.9 % NaCl with KCl 20 mEq infusion at 125 mL/hr, Intravenous, Continuous, Starting on Marian 08/25/17 at 0900, Until 08/28/17 at 1836 0147 (New Bag - Provider: Maria Eugenia Garcia RN)0906 (New Bag - Provider: Kami Lloyd RN) 2341 (Hold - Provider: Scar Mayes RN - Reason: Other - Comment: Order for NS bolus and hung that will restart after bolus finishes) 0106 (New Bag - Provider: Scar Mayes RN)0941 (New Bag - Provider: Loraine Staley, ALFRED) PRN Medication Order 08/26/2017 08/27/2017 08/28/2017 acetaminophen (TYLENOL) tablet 650 mg 650 mg, Oral, Every 6 hours PRN, Mild pain (Scale 1 - 3), Starting on Marian 08/25/17 at 0123, Until 08/28/17 at 1836, Maximum dose of acetaminophen is 4000 mg from all sources in 24 hours. 0952 (Given - Provid er: Loraine Staley, ALFRED) acetaminophen-codeine (TYLENOL #3) 300-30 MG tablet 1 tablet 1 tablet, Oral, Every 6 hours PRN, Moderate pain (Scale 4 - 7), Starting on Marian 08/25/17 at 0118, Until 08/28/17 at 1836, Maximum dose of acetaminophen is 4000 mg from all sources in 24 hours. lorazepam (ATIVAN) injection 1 mg 1 mg, Intravenous, Every 4 hours PRN, Seizures, Starting on Marian 08/25/17 at 0851, Until 08/28/17 at 1836, For IV use, further dilute with an equal volume of saline. ondansetron (ZOFRAN) injection 4 mg 4 mg, Intravenous, Every 6 hours PRN, Nausea, Vomiting, Starting on Marian 08/25/17 at 0123, Until 08/28/17 at 1836 Linked Groups Order Group 1: enoxaparin (LOVENOX) syringe 40 mgJump to med 40 mg, Subcutaneous, Every 24 hours, First dose on Marian 08/25/17 at 0145, Until Discontinued And Moderate Risk for VTE (COMPLETED) documented in this encounter Care Teams Carbon Grinder Relationship Specialty Start Date End Date Porter Porras [place] [address] [place] [address] PCP - General 06/25/16 09/27/18 Frank Toure MD [address] [place] [id number] [place] Panelboard Tank Pumper CARDIOVASCULAR DISEASE 05/30/16 documented as of this encounter
--- OUTSIDE RECORDS SUMMARY | 2024-06-08 05:53 | XMS_ITS | Encounter Summary ---
Author Organization [facility] Address [address] [facility]. [place], [place] [id number] [place] [address] Care Team Providers Care Recreational Therapy Aide Name Role Phone Frank Toure MD Unavailable Kayla Porras NP Primary Care Provider [phone] Encounter Details Date Type Department Care Team (Latest Contact Info) Description 08/30/2017 Abstract [facility] Medical Group Social History Tobacco Use [...] Notes * Jerica Cordon Md, MD - 08/30/2017 10:30 AM CDT Message Date of Hospital/NH Discharge: 08/28/2017 Date of Contact: 08/30/2017 Individual Contacted: Bi (Pt) Contacted by: Court SIMON Reviewed/ Addressed Self-Management Addressed, Independent Living Addressed, ADLS Addresses, Medication Management, Facilitation of Necessary Care and Services and Treatment Regimen Reviewed as Prescribed on Discharge 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 Pt's medications changed Keppra from 1500 to 2000 BID, and gabapentin to TID, Statin was d/c. Pt scheduled for 09/02/17 at 2pm. Pt states he has no problem preforming ADLs, he has enough medications at this time, but is going to call his neurologist today to let them know of changes so he does not run out of medications. Pt denies the need for PT/OT at this time. Signatures Electronically signed by : Court Kate, ; Aug 30 2017 10:38AM DIRECTOR OF GRADUATE ADMISSIONS (Author) documented in this encounter Plan of Treatment Not on file documented as of this encounter Visit Diagnoses Not on filedocumented in this encounter Care Teams Recreational Therapy Aide Relationship Specialty Start Date End Date [place] [address] PCP - General 06/25/16 09/27/18 Frank Toure MD [address] [place] [id number] [place] Fire Prevention Chief CARDIOVASCULAR DISEASE 05/30/16 documented as of this encounter
--- OUTSIDE RECORDS SUMMARY | 2024-06-08 05:53 | XMS_ITS | Encounter Summary ---
Author Organization [facility] Address [address] [place] [address] [place] [address] Care Team Providers Care Advertising Editor Name Role Phone Frank Toure MD Unavailable Kayla Porras NP Primary Care Provider [phone] Encounter Details Date Type Department Care Team (Late st Contact Info) Description 03/25/2017 Abstract [facility] Medical Group Family Medicine - [address] [phone] Misael Maradiaga, [address] [place] [phone] Social History Tobacco Use Types Packs/Day Years Used Date Smoking Tobacco: Never Assessed Sex and Gender Information Value Date Recorded Sex Assigned at Not on file Legal Sex Male 10:23 PM CDT Gender Identity Not on file Sexual Orientation Not on file documented as of this encounter Last Filed Vital Signs Vital Sign Reading Time Taken Comments Blood Pressure 130/94 03/25/2017 8:01 AM CDT Pulse 83 03/25/2017 8:01 AM CDT Temperature - - Respiratory Rate - - Oxygen Saturation - - Inhaled Oxygen Concentration - - Weight 60.8 kg (134 lb) 03/25/2017 8:01 AM CDT Height - - Body Mass Index 18.69 10/22/2016 10:52 AM CDT documented in this encounter Functional Status documented as of this encounter Mental Status * Question Answer Entry Date Author Status Because of a physical, mental, or emotional condition, do you have serious difficulty concentrating, remembering, or making decisions? No 08/28/2017 2:38 PM KASIT Loraine Staley RN A ctive documented in this encounter Progress Notes * Misael Maradiaga, DO - 03/25/2017 8:00 AM CDT History of Present Illness HPI Free Text: f/u ER visit Yesterday, he had SZ, he fell forward and hit his head and scrapped it. He was able to call his sister who came over and took him to hospital where he had another SZ in the car He went to [facility] where he had a CT, on his way of CT he claims he had another SZ He was given IV medications Per pt DC notes instructs him to take keppra 1000 po bid x 1 week then 1500 po bid and then to f/u with Dr Hancock's office They also decreased his amlodipine from 10 to 5 mg Review of systems General: denies any fevers, chills. Gastrointestinal: Patient denies any nausea, vomiting, diarrhea or constipation Cardiovascular: Patient denies Chest pain, shortness of breath. Physical Exam General: Well-developed, well-nourished, in no acute distress. Eyes: Conjunctiva and lids: right orbital with abrasion and swelling, EOMI, no pain with eye movement Lungs: Clear to auscultation bilaterally without wheezing, rhonchi or crackles. No increase work ofbreathing or signs of respiratory distress Heart: Regular rate and rhythm without murmurs, clicks or bruits. Abdomen: Nondistended, Nontender. Extremities: No clubbing, cyanosis, or edema noted. Neuro: grossly intact. Psych: Normal mood, normal affect Active Problems 1. Alcohol abuse (305.00) (F10.10) 2. Dysphagia (787.20) (R13.10) 3. Dysphagia (787.20) (R13.10) 4. 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 History of CVA (cerebrovascular accident) (V12.54) (Z86.73) 6. Hyperlipidemia (272.4) (E78.5) 7. Hypertension (401.9) (I10) 8. Imbalance (781.2) (R26.89) 9. Low back pain (724.2) (M54.5) 10. Need for hepatitis C screening test (V73.89) (Z11.59) 11. Screening for colon cancer (V76.51) (Z12.11) 12. Screening PSA (prostate specific antigen) (V76.44) (Z12.5) 13. Seizures (780.39) (R56.9) Past Medical History 1. History of Elevated CK (790.5) (R74.8) 2. History of colonic polyps (V12.72) (Z86.010) 3. History of stroke (V12.54) (Z86.73) Surgical History 1. History of Colonoscopy ?? 11/22/16: [facility] (3 small polyps removed) 2. History of Esophagogastroduodenoscopy ?? 11/22/16: [facility] (antral erosion, mild duodenal bulb [...] Therapy: (Recorded:22Oct2016) to Recorded 2. AmLODIPine Besylate 10 MG Oral Tablet; TAKE 1 TABLET DAILY FOR BLOOD PRESSURE; Therapy: (Recorded:25Mar2017) to Requested for: 25Mar2017 Recorded 3. Aspirin 81 MG Oral Tablet Delayed Release; TAKE 1 TABLET DAILY DIRECTED; Therapy: 28Jun2016 to (Evaluate:07Jun2017) Requested for: 09Nov2016; Last Rx:09Nov2016 Ordered 4. Atorvastatin Calcium 40 MG Oral Tablet; TAKE 1 TABLET ONCE EVERY DAY AT BEDTIME (TO LOWER CHOLESTEROL); Therapy: 30Sep2016 to (Evaluate:07Jun2017) Requested for: 09Nov2016; Last Rx:[id number] Ordered 5. BusPIRone HCl - 10 MG Oral Tablet; Therapy: 17Nov2016 to Recorded 6. Gabapentin 300 MG Oral Capsule; TK 1 C PO BID; Therapy: 01Mar2017 to Recorded 7. LevETIRAcetam 1000 MG Oral Tablet; TK 1 T PO BID; Therapy: 29Aug2016 to Recorded 8. Metoprolol Succinate ER 25 MG Oral Tablet Extended Release 24 Hour; TAKE 1 TABLET DAILY; Therapy: [id number] to (Evaluate:09Aug2017) Recorded 9. Omeprazole 20 MG Oral Capsule Delayed Release; TAKE 1 CAPSULE DAILY EVERY MORNING BEFORE BREAKFAST; Therapy: [id number] to (Evaluate:31May2017) Requested for: 59Yyp2912; Last Rx:[id number] Ordered 10. Tamsulosin HCl - 0.4 MG Oral Capsule; Take 1 cap daily Requested for: 19Nov2016; Last Rx:19Nov2016 Ordered 11. Vitamin B1 100 MG TABS; TAKE 1 TABLET DAILY DIRECTED; Therapy: [id number] to (Evaluate:64Vkw1306) Requested for: 40Dcy8856; Last Rx:[id number] Ordered Allergies 1. No Known Drug Allergies Immunizations Influenza --- Series1: 23-Jun-2016 PPSV --- Series1: 13-Aug-2015 Tdap --- Series1: 23-Mar-2017 Vitals Recorded: 25Mar2017 08:01AM Heart Rate 83 Systolic 130 Diastolic 94 Weight 134 lb BMI Calculated 18.69 BSA Calculated 1.78 Counseling The was counseled regarding instructions for management and importance of compliance with treatment. total time of encounter was 25 minutes and 20 minutes was spent counseling. Assessment 1. Seizures (780.39) (R56.9) 2. Hypertension (401.9) (I10) Plan Hypertension 1. AmLODIPine Besylate 5 MG Oral Tablet; TAKE 1 TABLET DAILY DIRECTED Rx By: Misael Maradiaga; Dispense: 90 Days ; #:90 Tablet; Refill: 3; For: Hypertension; RACHEL = N; Verified Transmission to [facility] [id number]; Last Updated By: Chantell Alvarado; 03/25/2017 8:38:22 AM decreased to 5mg per 03/23/17 st. e's visit Discussion/Summary Reviewed ER notes He claims he was compliant with SZ meds, but ER notes show he may not be advised he must take daily as instructed Given written instructions to take 1000 po bid x 1 week then increase to 1500 po bid which is 1 and 1/2 tab advised he must call Dr Hancock office today for f/u Pt verb understanding updated med list showing decrease of amlodipine f/u 3 mos Signatures Electronically signed by : Misael Maradiaga D.O.; Mar 25 2017 9:51AM BANKING PARALEGAL (Author) documented in this encounter Plan of Treatment Not on file documented as of this encounter Visit Diagnoses Not on filedocumented in this encounter Care Teams Advertising Editor Relationship Specialty Start Date End Date Kayla [place] [address] PCP - General 06/25/16 09/27/18 Frank Toure MD [address] [place] [id number] [place] Human Services Manager CARDIOVASCULAR DISEASE 05/30/16 documented as of this encounter
--- OUTSIDE RECORDS SUMMARY | 2024-06-08 05:53 | XMS_ITS | Encounter Summary ---
Author Organization [facility] Address [address] [facility] [place] [address] [place] [address] Care Team Providers Care Sizer Hand Name Role Phone Frank Toure MD Unavailable Kayla Porras NP Primary Care Provider [phone] Encounter Details Date Type Department Care Team (Latest Contact Info) Description 04/29/2017 Abstract [facility] Medical Group Social History Tobacco [...] on filedocumented in this encounter Care Teams Sizer Hand Relationship Specialty Start Date End Date Kayla Por[place] [address] PCP - General 06/25/16 09/27/18 Frank Toure MD [address] [place] [address] [employer] Director Of Digital Technology CARDIOVASCULAR DISEASE 05/30/16 documented as of this encounter
--- OUTSIDE RECORDS SUMMARY | 2024-06-08 05:53 | XMS_ITS | Encounter Summary ---
Author Organization [facility] Address [address] [place] [address] [place] [address] Care Team Providers Care Field Pipe Lines Supervisor Name Role Phone Frank Toure MD Unavailable Kayla Porras NP Primary Care Provider [phone] Encounter Details Date Type Department Care Team (Latest Contact Info) Description 01/28/2017 Abstract [facility] Medical Group Social History Tobacco [...] on filedocumented in this encounter Care Teams Field Pipe Lines Supervisor Relationship Specialty Start Date End Date Kayla Porras [place] [address] PCP - General 06/25/16 09/27/18 Frank Toure MD [address] [place] [address] [employer] Program Advocate CARDIOVASCULAR DISEASE 05/30/16 documented as of this encounter
--- OUTSIDE RECORDS SUMMARY | 2024-06-08 05:53 | XMS_ITS | Encounter Summary ---
Author Organization [facility] Address [address] [facility] [place] [address] [place] [address] Care Team Providers Care Scale Technician Name Role Phone Frank Toure MD Unavailable Kayla Porras NP Primary Care Provider [phone] Encounter Details Date Type Department Care Team (Latest Contact Info) Description 11/22/2016 Abstract [facility] Medical Group Mark Devine MD [address] [facility] [address] [place] [address] Social History Tobacco Use Types Packs/Day Years [...] on filedocumented in this encounter Care Teams Scale Technician Relationship Specialty Start Date End Date Kayla Por[place] [address] PCP - General 06/25/16 09/27/18 Frank Toure MD [address] [place] [address] [employer]ivo B2B Appointment Setter CARDIOVASCULAR DISEASE 05/30/16 documented as of this encounter
--- OUTSIDE RECORDS SUMMARY | 2024-06-08 05:53 | XMS_ITS | Encounter Summary ---
Author Organization [facility] Address [address] [facility] [place] [address] [place] [address] Care Team Providers Care Occupational Analyst Name Role Phone Frank Toure MD Unavailable Kayla Porras SCHEDULE PLANNING MANAGER Primary Care Provider [phone] Encounter Details Date Type Department Care Team (Late st Contact Info) Description 04/02/2017 [place] [address] , Generic ConversionMD Social History Tobacco Use Types Packs/Day Years [...] on filedocumented in this encounter Care Teams Occupational Analyst Relationship Specialty Start Date End Date Kayla [place] [address] PCP - General 06/25/16 09/27/18 Frank Toure MD [address] [place] [address] Chivo Crossing Supervisor CARDIOVASCULAR DISEASE 05/30/16 documented as of this encounter
--- OUTSIDE RECORDS SUMMARY | 2024-06-08 05:53 | XMS_ITS | Encounter Summary ---
Author Organization [facility] Address [address] [facility] [place] [address] [place] [address] Care Team Providers Care Skilled Helper Name Role Phone Frank Toure MD Unavailable Kayla Porras NP Primary Care Provider [phone] Encounter Details Date Type Department Care Team (Late st Contact Info) Description 11/22/2016 Abstract [facility] [address] [place] [address] Rhonda Rizzo MD [address] [facility] [address] [address] Social History Tobacco Use Types Packs/Day Years [...] as of this encounter Visit Diagnoses Diagnosis Gastritis without bleeding Unspecified gastritis and gastroduodenitis without mention of hemorrhage documented in this encounter Care Teams Skilled Helper Relationship Specialty Start Date End [place] [address] PCP - General 06/25/16 09/27/18 Frank Toure MD [address] [place] [address] [employer] Administrative Associate CARDIOVASCULAR DISEASE 05/30/16 documented as of this encounter
--- OUTSIDE RECORDS SUMMARY | 2024-06-08 05:53 | XMS_ITS | Encounter Summary ---
Author Organization [facility] Address [address] [facility] [place] [address] [place] [address] Care Team Providers Care Vest Backer Name Role Phone Frank Toure MD Unavailable Kayla Porras NP Primary Care Provider [phone] Encounter Details Date Type Department Care Team (Late st Contact Info) Description 09/02/2017 Orders Only [facility] [place] [address] Misael Maradiaga, DO [address] [facility] [address] [place] [phone] Social History Tobacco Use Types Packs/Day Years [...] documented as of this encounter Results * CK (CPK) (09/02/2017 2:17 PM CDT) CPK 204 35 - 232 U/L 09/02/2017 9:53 PM CDT [facility] 09/02/2017 2:17 PM CDT Misael Maradiaga DO LABORATORY Final Result Performing Organization Address [facility] Co de Phone Number [facility] [address] [place] [address], documented in this encounter Visit Diagnoses Diagnosis Convulsions (CMS/HCC HHS/HCC) Other convulsions documented in this encounter Care Teams Vest Backer Relationship Specialty Start Date End Date Kayla [place] [address] PCP - General 06/25/16 09/27/18 Frank Toure MD [address] [place] [address] Chivo Signal Inspector CARDIOVASCULAR DISEASE 05/30/16 documented as of this encounter
--- OUTSIDE RECORDS SUMMARY | 2024-06-08 05:53 | XMS_ITS | Encounter Summary ---
Author Organization [facility] Address [address] [facility]. [place], [place] [address] [place] [address] Care Team Providers Care Mail Carrier Name Role Phone Frank Toure MD Unavailable Kayla Porras NP Primary Care Provider [phone] Encounter Details Date Type Department Care Team (Latest Contact Info) Description 08/29/2017 Abstract [facility] Medical Group Misael Maradiaga, DO [address] [address] Social History Tobacco Use Types [...] on filedocumented in this encounter Care Teams Mail Carrier Relationship Specialty Start Date End Date Kayla [place] [address] PCP - General 06/25/16 09/27/18 Frank Toure MD [address] [place] [address] [place] Site Project Manager CARDIOVASCULAR DISEASE 05/30/16 documented as of this encounter
--- OUTSIDE RECORDS SUMMARY | 2024-06-08 05:53 | XMS_ITS | Encounter Summary ---
Author Organization [facility] Address [address] [facility]. [place], [place] [address] [place] [address] Care Team Providers Care Watch Crystal Edge Grinder Name Role Phone Frank Toure MD Unavailable Kayla Porras NP Primary Care Provider [phone] Encounter Details Date Type Department Care Team (Latest Contact Info) Description 11/22/2016 Abstract [facility] Medical Group Mal Devine MD [address] [facility] [address] [place] [address] Social History Tobacco Use Types Packs/Day Years [...] Procedure Name Priority Date/Time Associated Diagnosis Comments TISSUE EXAM BY PATHOLOGIST Routine 11/22/2016 12:00 AM CDT documented in this encounter Results * TISSUE EXAM BY PATHOLOGIST (11/22/2016 12:00 AM CDT) PATHOLOGY - SURGICAL FINAL REPORT Patient Name: BI TABOR [facility]. Rec. #:[id number] : 1960 (Age: 56) Gender: M Physician(s): MAL DEVINE Client: [facility] Location: [facility]) Billing #[id number] Copy To: Taken: 11/22/2016 Received: 11/22/2016 Reported: 11/23/2016 Specimen(s) Received A: Gastric erosions, Biopsy B: Polyp, sigmoid C: Rectal Polyp Final Pathologic Diagnosis A. ??GASTRIC EROSION, BIOPSY: ? GASTRIC MUCOSA WITH MILD REACTIVE CHANGES ? IMMUNOHISTOCHEMICAL STAIN FOR H. PYLORI IS PENDING AND WILL BE REPORTED IN AN ?ADDENDUM B. ??SIGMOID COLON POLYPS X 2, BIOPSY: ? POLYPOID FRAGMENT OF LARGE BOWEL MUCOSA WITH A LYMPHOID AGGREGATE AND MINIMAL ? HYPERPLASTIC CHANGE (DEEPER SECTIONS ARE EXAMINED) C. ??RECTAL POLYP, BIOPSY: ? POLYPOID FRAGMENT OF LARGE BOWEL MUCOSA (DEEPER SECTIONS ARE EXAMINED) adb/11/23/2016 Electronically Signed Out By TONY HUANG Procedures/Addenda Addendum ? Date Ordered: ? 11/24/2016 ? Status: ?? Signed Out ? Date Complete: ? 11/24/2016 ? Date Reported: ? 11/24/2016 Addendum Diagnosis A. ??Immunohistochemical stain for H. pylori is performed on the gastric biopsy and is negative. ??The control slide stains appropriately. Addendum Comment These tests were developed and the performance characteristics determined by [place], [place] and/or [employer]. ??They have not been cleared or approved by the US Food and Drug Administration (FDA). ??The FDA has determined that such clearance or approval is not necessary. ??These tests are used for clinical purposes. ??Prognostic and predictive testing should be interpreted in the context of additional and/or histopathological findings. ? TONY HUANG Microscopic Description A. ??The biopsy of the gastric erosion specimen shows fragments of gastric mucosa with reactive change of the surface epithelium including mild mucin depletion. No activity is seen. B. ??The biopsy of the sigmoid colon polyp shows polypoid fragments of large bowel mucosa. ??Deeper sections are examined. C. ??The biopsy of the rectal polyp shows a fragment of large bowel mucosa. Deeper sections are examined. Clinical History Dysphagia, colon cancer screening Gross Description The specimens are submitted in three containers. A. ??The first specimen is received in formalin (placed in formalin at 1315), labeled with the patient's name (Bi Tabor), birthdate, and biopsy of gastric erosions. ??The specimen consists of five pieces of soft, light marie-red tissue measuring 0.2 up to 0.5 cm, which are filtered and submitted in toto in one cassette labeled A. B. ??The second specimen is received in formalin (placed in formalin at 1339), labeled with the patient's name (Bi Tabor), birthdate, and sigmoid polyps x2. ??The specimen consists of two pieces of soft, light marie-red tissue measuring 0.2 and 0.3 cm, which are filtered and submitted in toto in one cassette labeled B. C. ??The third specimen is received in formalin (placed in formalin at 1341), labeled with the patient's name (Bi Tabor), birthdate, and rectal polyp forceps. ??The specimen consists of a polypoid piece of rubbery, light marie-red tissue measuring 0.3 cm, which is filtered and submitted in one cassette labeled C. adb/ath/11/22/2016 Billing Fee Code(s): 50542(3), 14773 [facility] TO EPIC CONVERSION 11/22/2016 11/22/2016 Narrative [facility] TO EPIC CONVERSION - 11/22/2016 2:55 PM CDT Result Communication: No patient communication needed at this time us Mal Devine MD PATHOLOGY/CYTOLOGY ORDERABLES Fi nal Result [facility] TO EP[facility] CONVERSION documented in this encounter Visit Diagnoses Not on filedocumented in this encounter Care Teams Watch Crystal Edge Grinder Relationship Specialty Start Date End [place] [address] PCP - General 06/25/16 09/27/18 Frank Toure MD [address] [place] [address] Chivo Supervisor Dimension Warehouse CARDIOVASCULAR DISEASE 05/30/16 documented as of this encounter
--- OUTSIDE RECORDS SUMMARY | 2024-06-08 05:53 | XMS_ITS | Encounter Summary ---
Author Organization [facility] Address [address] [facility] [place] [address] [place] [address] Care Team Providers Care Minilab Operator Name Role Phone Frank Toure MD Unavailable Kayla Porras NP Primary Care Provider [phone] Encounter Details Date Type Department Care Team (Late st Contact Info) Description 04/07/2017 Abstract [facility] Medical Group Family Medicine - [address] [phone] Misael Maradiaga, [address] [place] [phone] Social History Tobacco Use Types Packs/Day Years [...] on filedocumented in this encounter Care Teams Minilab Operator Relationship Specialty Start Date End Date Kayla Porras NP [address] [place] [address] PCP - General 06/25/16 09/27/18 Frank Toure MD [address] [place] [address] Chivo Electro Mechanical Technician CARDIOVASCULAR DISEASE 05/30/16 documented as of this encounter
--- OUTSIDE RECORDS SUMMARY | 2024-06-08 05:53 | XMS_ITS | Encounter Summary ---
Author Organization [facility] Address [address] [facility]. [place], [place] [address] [place] [address] Care Team Providers Care Tension Machine Operator Name Role Phone Frank Toure MD Unavailable Kayla Porras NP Primary Care Provider [phone] Encounter Details Date Type Department Care Team (Latest Contact Info) Description 12/03/2016 Abstract [facility] Medical Group , Jerica Cordon MD Social [...] documented in this encounter Progress Notes * Generic Conversion MD Quin - 12/03/2016 12:25 PM CDT Message Message: Left message for patient letting him know i tried to do 3 prior authorizations but his insurance, [employer] [place], will not cover his PPI medication because they do not cover any of the PPI drugs. Told patient to call clinic back to discuss options or he can talk to Dr Devine at his appt on 12/09 about other options. Signatures Electronically signed by : Dina Martinez, ; Dec 03 2016 12:28PM RN MANAGED CARE (Author) documented in this encounter Plan of Treatment Not on file documented as of this encounter Visit Diagnoses Not on filedocumented in this encounter Care Teams Tension Machine Operator Relationship Specialty Start Date End Date Kayla Porras NP [address] [place] [address] PCP - General 06/25/16 09/27/18 Frank Toure MD [address] [place] [address] [place] Casing Tester CARDIOVASCULAR DISEASE 05/30/16 documented as of this encounter
--- OUTSIDE RECORDS SUMMARY | 2024-06-08 05:53 | XMS_ITS | Encounter Summary ---
Author Organization [facility] Address [address] [facility] [place] [address] [place] [address] Care Team Providers Care Cashier Courtesy Booth Name Role Phone Frank Toure MD Unavailable Kayla Porras NP Primary Care Provider [phone] Encounter Details Date Type Department Care Team (Late st Contact Info) Description 09/02/2017 9:01 PM CDT - 09/02/2017 11:59 PM CDT Hospital Encounter [facility] [place] [address] Misael Maradiaga, DO 3 [facility] [address] [place] [phone] Discharge Disposition: Home or Self Care (Routine [...] 02/10/2017 09/01/2018 documented as of this encounter Plan of Treatment Not on file documented as of this encounter Procedures Procedure Name Priority Date/Time Associated Diagnosis Comments CK (CPK) Routine 09/02/2017 2:17 PM CDT Convulsions (CMS/HCC HHS/HCC) documented in this encounter Results * CK (CPK) (09/02/2017 2:17 PM CDT) CPK 204 35 - 232 U/L 09/02/2017 9:53 PM CDT [facility] 09/02/2017 2:17 PM CDT Misael Maradiaga DO LABORATORY Final Result [facility] [address] [place] [address], documented in this encounter Visit Diagnoses Diagnosis Convulsions (CMS/HCC HHS/HCC) Other convulsions documented in this encounter Care Teams Cashier Courtesy Booth Relationship Specialty Start Date End Date Kay[place] [address] PCP - General 06/25/16 09/27/18 Frank Toure MD [address] [place] [address] [employer] Inner Tube Inserter CARDIOVASCULAR DISEASE 05/30/16 documented as of this encounter
--- OUTSIDE RECORDS SUMMARY | 2024-06-08 05:53 | XMS_ITS | Encounter Summary ---
Author Organization [facility] Address [address] [place] [address]. [place] [address] [place] [address] Care Team Providers Care Naphthalene Still Operator Name Role Phone Frank Toure MD Unavailable Kayla Porras NP Primary Care Provider [phone] Reason for Visit * Reason Comments ECG (SCAN) Encounter Details Date Type Department Care Team (Late st Contact Info) Description 08/25/2017 Scan [facility] [place], [place] [id number] Scanned, Documents ECG (SCAN) Social History Tobacco Use Types Packs/Day [...] Name Priority Date/Time Associated Diagnosis Comments ECG GENERIC (SCAN ORDER) Routine 08/24/2017 ECG GENERIC (SCAN ORDER) Routine 08/24/2017 ECG GENERIC (SCAN ORDER) Routine 08/24/2017 documented in this encounter Results * ECG (08/24/2017) us Documents Scanned SCANNING Final Result * ECG (08/24/2017) us Documents Scanned SCANNING Final Result * ECG (08/24/2017) us Documents Scanned SCANNING Final Result documented in this encounter Visit Diagnoses Not on filedocumented in this encounter Care Teams Naphthalene Still Operator Relationship Specialty Start Date End Date Kayla Porras NP [address] [place] [address] [place] [address] PCP - General 06/25/16 09/27/18 Frank Toure MD [address] [place] [address] [employer] Store Group Manager CARDIOVASCULAR DISEASE 05/30/16 documented as of this encounter
--- OUTSIDE RECORDS SUMMARY | 2024-06-08 05:53 | XMS_ITS | Encounter Summary ---
Author Organization [facility] Address [address] [facility] [place] [address] [place] [address] Care Team Providers Care Coding Specialist Home Health Name Role Phone Frank Toure MD Unavailable Kayla Porras NP Primary Care Provider [phone] Encounter Details Date Type Department Care Team (Latest Contact Info) Description 04/20/2017 Abstract [facility] Medical Group Social History Tobacco Use [...] on filedocumented in this encounter Care Teams Coding Specialist Home Health Relationship Specialty Start Date End Date Kayla [place] [address] PCP - General 06/25/16 09/27/18 Frank Toure MD [address] [place] [address] [employer] Internal Communications Specialist CARDIOVASCULAR DISEASE 05/30/16 documented as of this encounter
--- OUTSIDE RECORDS SUMMARY | 2024-06-08 05:53 | XMS_ITS | Encounter Summary ---
Author Organization [facility] Address [address] [place] [address] [place] [address] Care Team Providers Care Building And Construction Manager Name Role Phone Frank Toure MD Unavailable Kayla Porras NP Primary Care Provider [phone] Reason for Visit * Reason Comments Seizures Encounter Details Date Type Department Care Team (Late st Contact Info) Description 10/12/2017 3:16 PM CDT - 10/12/2017 7:18 PM CDT Emergency [facility] Emergency Room [place], [place] [id number] Rodrigo Damian, DO [address] [facility] [address] [id number] Seizures Discharge Disposition: Home or Self Care (Routine [...] Sign Reading Time Taken Comments Blood Pressure 163/94 10/12/2017 7:00 PM CDT Pulse 79 10/12/2017 4:28 PM CDT Temperature 37 ??C (98.6 ??F) 10/12/2017 3:13 PM CDT Respiratory Rate 18 10/12/2017 7:00 PM CDT Oxygen Saturation 98% 10/12/2017 7:00 PM CDT Inhaled Oxygen Concentration - - Weight 59 kg (130 lb 2 oz) 10/12/2017 3:13 PM CD T Height 180.3 cm (5' 11 ) 10/12/2017 3:13 PM CDT Body Mass Index 18.15 10/12/2017 3:13 PM CDT documented in this [...] this encounter Discharge Instructions * Discharge Instructions* Rodrigo Damian DO - 10/12/2017 6:44 PM CDT Images from the original note were not included. No driving/ladders/stairways. Continue with your Keppra, you will want to take two of the 1000 mg tablets twice a day as directed on prescription bottle. Follow-up with your primary care provider within the next several days for continued management. Ask your doctor to review your ER lab results with you. Return to ER if worsen in any way. Seizures Discharge Instructions, Adult About this topic A seizure happens when your brain sends out abnormal signals through its electrical activity. It may cause shaking and fast movements that you cannot control. You will not be aware of this. A seizuremost often lasts for a few seconds to minutes and then causes you to be very tired. You may seem cristina asleep or confused during this time. In a little while, you should return to your normal self. What care is needed at home? ?? Ask your doctor what you need to do when you go home. Make sure you ask questions if you do not understand what the doctor says. This way you will know what you need to do. ?? Be sure to take all your seizure drugs. Do not skip doses. Do not suddenly stop taking these drugs. ?? Wear a medical alert ID. ?? Keep your home safe so you do not get hurt when your seizure happens. For example: ?? Keep doors inside your home unlocked or unblocked. ?? Carpet all floors to keep them soft in case you have a seizure and fall. ?? Be careful when taking a bath. If you have a seizure while in the tub, you might drown. Showers are safer. ?? Replace glass doors with safety glass. ?? Replace glass dishes and glassware with plastic. ?? Wear a helmet or headgear to protect your head during riding, skiing, and other active sports. ?? Stay away from doing things that can put you or someone else in danger if you have a seizure. Tell your family, friends, and others about your health problem. If a seizure happens, tell your family and friends to: ?? Clear the area so you are not hurt ?? Place you on a flat surface ?? Not try to hold you still ?? Not put anything in your mouth ?? Turn you onto your side if you are throwing up ?? Stay with you until you are feeling better and know what happened ?? Time the seizure What follow-up care is needed? Your doctor may ask you to make visits to the office to check on your progress. Be sure to keep these visits. Your doctor may order tests, such as scans or tests of your brain's electrical activity. Be sure to keep these visits and follow up to get test results. You may have a blood test to see if the level of the seizure drug in your blood is good. What drugs may be needed? The doctor will give you a drug or drugs for your seizures. There are many kinds of these drugs. The choice will depend on what type of seizure you are having and how well the drug works for you. Will physical activity be limited? ?? You should be able to work out, dance, and play sports such as tennis, golf, bowling, and others. ?? Always have someone with you when swimming. ?? Follow laws in your area about driving with a seizure problem. ?? Talk to your doctor about the right activities for you. What changes to diet are needed? ?? Do not drink beer, wine, and mixed drinks (alcohol). ?? Do not take drugs and natural products that slow your actions. What problems could happen? ?? You could fall and get hurt while having a seizure. ?? The drugs you are taking can have side effects. They can make you feel tired and even depressed. What can be done to prevent this health problem? ?? Get enough sleep. Not getting the right amount of sleep can make you more likely to have a seizure. ?? Eat regular, well-balanced meals. ?? Do not skip doses of your seizure drug. This could cause you to have a seizure. ?? Lower your stress. When do I need to call the doctor? ?? Seizures happen more often ?? Seizures are worse ?? Seizure lasts more than 5 minutes ?? Signs of low mood (depression), thoughts of killing yourself, nervousness, emotional ups and downs, thinking that is not normal, anxiety, or lack of interest in life ?? Changes in the way you act that are not like you ?? Feeling weak ?? Change in balance ?? Side effects from your drugs ?? You are not feeling better in 2 to 3 days or you are feeling worse Helpful tips ?? Do not miss doses of your seizure drugs. If you forget a dose, take it as soon as possible. If it is within a few hours of your next dose, skip it and take your next dose. ?? Do not run out of your seizure drugs. Get refills before you run out. Teach Back: Helping You Understand The Teach Back Method helps you understand the information we are giving you. The idea is simple. After talking with the staff, tell them in your own words what you were just told. This helps to makesure the staff has covered each thing clearly. It also helps to explain things that may have been abit confusing. Before going home, make sure you are able to do these: ?? I can tell you about my condition. ?? I can tell you what to do if I have a seizure. ?? I can tell you what I need to do if my seizures happen more often or last more than 5 minutes. Where can I learn more? Epilepsy Foundation http://www.epilepsyfoundation.org/aboutepilepsy/healthrisks/injuriesfromseizures .cfm Epilepsy Foundation http://www.epilepsyfoundation.org/aboutepilepsy/whatisepilepsy/index.cfm National [employer] of Neurological Disorders and Stroke http://www.ninds.nih.gov/disorders/epilepsy/detail_epilepsy.htm Last Reviewed Date 2015-06-17 Consumer Information Use and Disclaimer This information is not specific medical advice and does not replace information you receive from your health care provider. This is only a brief summary of general information. It does NOT include all information about conditions, illnesses, injuries, tests, procedures, treatments, therapies, discharge instructions or life-style choices that may apply to you. You must talk with your health care provider for complete information about your health and treatment options. This information should not be used to decide whether or not to accept your health care provider???s advice, instructions or recommendations. Only your health care provider has the knowledge and training to provide advice that is right for you. Copyright Copyright ?? 2018 [employer] and its affiliates and/or licensors. All rights reserved. documented in this encounter Medications at Time of Discharge acetaminophen-codei ne 300-30 MG tablet Take 1 tablet by mouth every 6 (six) hours as needed for Pain. 12 tablet 04/29/2017 09/02/19 19 amlodipine 5 MG tablet Take 5 mg by mouth daily. 08/19/19 19 aspirin 81 MG chewable tablet Chew 81 mg by mouth daily. 08/22/19 19 atorvastatin 40 MG tablet TK 1 T PO QD HS TO LOWER CHOLESTEROL 5 09/04/2017 08/22/19 19 busPIRone 10 MG tablet 11/17/2016 08/22/19 19 Cyanocobalamin (B-12) 1000 MCG Cap Take 1,000 mcg by mouth. 07/11/2017 11/30/19 19 folic acid 1 MG tablet Take 1 mg by mouth daily. 12/13/19 19 gabapentin 300 MG capsule Take 300 mg by mouth 3 (three) times daily. 11/23/19 19 levETIRAcetam 1000 MG tablet Take 2 tablets (2,000 mg total) by mouth 2 (two) times daily. 360 tablet 3 08/28/2017 08/22/19 metoprolol succinate ER 25 MG 24 hr tablet Take 1 tablet by mouth daily. 02/10/2017 09/02/19 ondansetron 4 MG disintegrating tablet Take 1 tablet (4 mg total) by mouth every 8 (eight) hours as needed for Nausea. 20 tablet 10/12/2017 08/22/19 19 documented as of this encounter ED Notes * Rodrigo Damian, - 10/12/2017 6:32 PM CDT Chief Complaint Chief Complaint Patient presents with ??? Seizures History of Present Illness HPI Comments: Chief complaint: Seizure History chief complaint: Patient thinks he might of had a seizure at home, some things were knocked off a table at home and he feels this might have been caused by him having a seizure. There was no witness to the seizure. He is here with his sister. 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 There has been no fever or any other new symptoms. There is question as to whether or not he has been taking his Keppra correctly, his current prescription calls for him to take 2000 mg twice a day and his sister thinks he might of only been taking1 twice a day.? Poor medication compliance. Problem located neurologically. Is like a possible seizure. Mild severity. Caused by chronic seizure disorder. Was made better with time. Associated symptoms: No fever, no neck pain or other injury. Patient does relate occasionally the Keppra has caused him some nausea. Medical History ?? Past Medical History Date Comments ?? Seizures (R56.9) ?? Hypertension (I10) ?? HLD (hyperlipidemia) (E78.5) ?? Stroke (I63.9) lt side weakness ?? Seizures (R56.9) ?? Surgical History ?? Past Surgical History Laterality Last Occurrence Comments ?? None ?? Family History ?? Noncontributory ?? Social History ?? Category History ?? Smoking Tobacco Use Current Every Day Smoker; Start date: ?? Smokeless Tobacco Use Never Used ?? Tobacco Comment ?? Alcohol Use No ?? Drug Use No ?? Sexual Activity Not Asked ?? ADL Not Asked Patient is a 57-year-old male presenting with seizures. Seizures Medical History ALLERGIES: No Known Allergies MEDICATIONS: Prior to Admission medications Medication Sig Start Date End Date Taking? Authorizing Provider acetaminophen-codeine 300-30 MG tablet Take 1 tablet by mouth every 6 (six) hours as needed for Pain. 04/29/17 Ha Moore MD amlodipine 5 MG tablet Take 5 mg by mouth daily. Doc Abstract aspirin 81 MG chewable tablet Chew 81 mg by mouth daily. Doc Abstract folic acid 1 MG tablet Take 3 mg by mouth daily. Doc Abstract gabapentin 300 MG capsule Take 300 mg by mouth 3 (three) times daily. Doc Abstract levETIRAcetam 1000 MG tablet Take 2 tablets (2,000 mg total) by mouth 2 (two) times daily. 08/28/17 08/28/18 Aron Buckley MD Review of Systems Review of Systems Constitutional: Negative for appetite change, chills and fever. HENT: Negative for congestion, ear discharge, ear pain, facial swelling, sinus pain, sore throat and voice change. Eyes: Negative for photophobia, pain, discharge and visual disturbance. Respiratory: Negative for cough, chest tightness, shortness of breath and wheezing. Cardiovascular: Negative for chest pain and palpitations. Gastrointestinal: Negative for abdominal pain, blood in stool, diarrhea and nausea. Genitourinary: Negative for dysuria, frequency and hematuria. Musculoskeletal: Negative for arthralgias, neck pain and neck stiffness. Skin: Negative for rash. Neurological: Positive for seizures. Negative for dizziness, weakness and headaches. Hematological: Does not bruise/bleed easily. Psychiatric/Behavioral: Negative for behavioral problems and confusion. All other systems reviewed and are negative. Physical Exam Filed Vitals: 10/12/17 1513 10/12/17 1628 BP: (!) 137/91 142/83 Pulse: 105 79 Resp: 18 18 Temp: 98.6 ??F (37 ??C) TempSrc: Oral SpO2: 98% 100% Weight: 59 kg (130 lb 2 oz) Height: 5' 11 (1.803 m) Physical [...] time. Skin: Skin is warm and dry. No rash noted. Psychiatric: He has a normal mood and affect. Thought content normal. Nursing note and vitals reviewed. Diagnostic Studies LABORATORY STUDIES: Results for orders placed or performed during the hospital encounter of 10/12/17 CBC W/DIFF AUTOMATED Result Value Ref Range WBC 6.7 4.8 - 10.8 x10'3/uL RBC 4.91 4.70 - 6.10 x10'6/uL HGB 15.4 14.0 - 18.0 G/DL HCT 46.7 43.0 - 54.0 % MCV 95.1 (H) 80.0 - 94.0 FL MCH 31.4 (H) 27.0 - 31.0 PG MCHC 33.0 32.0 - 36.0 G/DL RDW 11.5 11.5 - 14.5 % PLT 231 130 - 400 x10'3/uL MPV 10.9 9.3 - 12.2 FL NEUTROPHILS 70.1 (H) 43.0 - 65.0 % LYMPHOCYTES 23.3 20.0 - 46.0 % MONOCYTES 5.9 5.0 - 12.0 % EOSINOPHILS 0.5 (L) 1.0 - 3.0 % BASOPHILS 0.2 0.0 - 1.0 % IMMATURE GRANS 0.0 0.0 - 1.0 % COMPREHENSIVE METABOLIC PANEL Result Value Ref Range GLUCOSE 108 (H) 70 - 99 MG/DL BUN 11 7 - 18 MG/DL CREATININE 1.05 0.7 - 1.3 MG/DL SODIUM 140 136 - 145 MMOL/L POTASSIUM 4.1 3.5 - 5.1 MMOL/L CHLORIDE 107 100 - 108 MMOL/L CO2 28.6 21 - 32 MMOL/L CALCIUM 9.3 8.5 - 10.1 MG/DL TOTAL BILIRUBIN 0.7 0.2 - 1.2 MG/DL TOTAL PROTEIN 8.2 6.4 - 8.2 G/DL ALBUMIN 4.5 3.4 - 5.0 G/DL AST 17 15 - 37 U/L ALT 19 16 - 60 U/L ALK PHOS 94 50 - 136 U/L ANION GAP 8.5 8 - 20 MMOL/L BUN CREATININE RATIO 10.5 6 - 26 A/G RATIO 1.2 1.0 - 2.0 RATIO eGFR Non-Afr. Amer. 79 (L) >90 ML/MIN/1.73 M2 eGFR Afr. Amer. >90 >90 ML/MIN/1.73 M2 URINALYSIS WI REFLEX TO CULTURE Result Value Ref Range Specimen Type URINE CLEAN CATCH COLOR YELLOW TRANSPARENCY CLEAR Specific [place] (U) 1.019 1.001 - 1.030 U PH 5.0 5.0 - 9.0 LEUKOCYTE ESTERASE NEGATIVE NEGATIVE NITRITES NEGATIVE NEGATIVE PROTEIN, URINE 100 (H) <30 MG/DL URINE GLUCOSE NEGATIVE NEGATIVE MG/DL U KETONES 20 (A) NEGATIVE MG/DL UROBILINOGEN NEGATIVE NEGATIVE MG/DL Urine Bilirubin NEGATIVE NEGATIVE MG/DL BLOOD NEGATIVE NEGATIVE CULTURE & SENSITIVITY INDICATED? CULTURE IS NOT INDICATED MUCUS FEW /LPF WBC/HPF 4 <6 /HPF RBC/HPF 1 <6 /HPF ED Course / Medical Decision Making History and physical completed. Findings and plan of care discussed with patient and sister, patient's encouraged to try to take his medication after he has eaten so it is less likely to bother his stomach. Patient voiced understanding of the plan of care. Critical CARE minutes: No Condition: Fair Diagnosis: SNOMED CT(R) 1. Seizure SEIZURE 2. History of seizure disorder H/O: BRAIN DISORDER 3. Poor medication compliance Disposition: Discharged home. Rodrigo Damian DO 10/12/17 1356 * Mahsa Chambers RN - 10/12/2017 3:15 PM CDT Came to ED for c/o seizure today that lasted about 10 mins per brother's report. documented in this encounter Plan of Treatment Not on file documented as of this encounter Procedures Procedure Name Priority Date/Time Associated Diagnosis Comments URINALYSIS WI REFLEX TO CULTURE STAT 10/12/2017 4:38 PM CDT COMPREHENSIVE METABOLIC PANEL STAT 10/12/2017 4:32 PM CDT CBC W/DIFF AUTOMATED STAT 10/12/2017 4:32 PM CDT documented in this encounter Results * (ABNORMAL) URINALYSIS WI REFLEX TO CULTURE (10/12/2017 4:38 PM CDT) SPECIMEN TYPE URINE CLEAN CATCH 10/12/2017 4:37 PM CDT [facility] COLOR (U) YELLOW 10/12/2017 5:06 PM CDT [facility] TRANSPARENCY CLEAR 10/12/2017 5:06 PM CDT [facility] SPECIFIC GRAVITY (U) 1.019 1.001 - 1.030 10/12/2017 5:06 PM CDT [facility] U PH 5.0 5.0 - 9.0 10/12/2017 5:06 PM CDT [facility] LEUKOCYTES (U) NEGATIVE NEGATIVE 10/12/2017 5:06 PM CDT [facility] NITRITES NEGATIVE NEGATIVE 10/12/2017 5:06 PM CDT [facility] PROTEIN (U) 100(H) <30 MG/DL 10/12/2017 5:06 PM CDT [facility] URINE GLUCOSE NEGATIVE NEGATIVE MG/DL 10/12/2017 5:06 PM CDT [facility] KETONES MG/DL (U) 20(A) NEGATIVE MG/DL 10/12/2017 5:06 PM CDT [facility] UROBILINOGEN NEGATIVE NEGATIVE MG/DL 10/12/2017 5:06 PM CDT [facility] BILIRUBIN (U) NEGATIVE NEGATIVE MG/DL 10/12/2017 5:06 PM CDT [facility] BLOOD (U) NEGATIVE NEGATIVE 10/12/2017 5:06 PM CDT [facility] CULTURE & SENSITIVITY INDICATED? CULTURE IS NOT INDICATED 10/12/2017 5:06 PM CDT [facility] MUCUS FEW /LPF 10/12/2017 5:06 PM CDT [facility] WBC/HPF 4 <6 /HPF 10/12/2017 5:06 PM CDT [facility] RBC/HPF 1 <6 /HPF 10/12/2017 5:06 PM CDT [facility] URINE SPECIMEN OBTAINED BY CLEAN CATCH PROCEDURE / Unknown 10/12/2017 4:38 PM CDT us [place] L Weeks APNP URINE ORDERABLES Final Result [facility] [address] [place] [address], [place] [phone] * (ABNORMAL) COMPREHENSIVE METABOLIC PANEL (10/12/2017 4:32 PM CDT) GLUCOSE 108(H) 70 - 99 MG/DL 10/12/2017 5:02 PM CDT [facility] BUN 11 7 - 18 MG/DL 10/12/2017 5:02 PM CDT [facility] CREATININE S/P/B 1.05 0.7 - 1.3 MG/DL 10/12/2017 5:02 PM T [facility] SODIUM S/P/B 140 136 - 145 MMOL/L 10/12/2017 5:02 PM [facility] POTASSIUM S/P/B 4.1 3.5 - 5.1 MMOL/L 10/12/2017 5:02 PM T [facility] CHLORIDE S/P/B 107 100 - 108 MMOL/L 10/12/2017 5:02 PM T [facility] CO2 28.6 21 - 32 MMOL/L 10/12/2017 5:02 PM T [facility] CALCIUM S/P/B 9.3 8.5 - 10.1 MG/DL 10/12/2017 5:02 PM T [facility] BILIRUBIN TOTAL S/P/B 0.7 0.2 - 1.2 MG/DL 10/12/2017 5:02 PM T [facility] TOTAL PROTEIN S/P/B 8.2 6.4 - 8.2 G/DL 10/12/2017 5:02 PM T [facility] ALBUMIN S/P/B 4.5 3.4 - 5.0 G/DL 10/12/2017 5:02 PM [facility] AST 17 15 - 37 U/L 10/12/2017 5:02 PM T [facility] ALT 19 16 - 60 U/L 10/12/2017 5:02 PM T [facility] ALKALINE PHOSPHATASE S/P/B 94 50 - 136 U/L 10/12/2017 5:02 PM [facility] ANION GAP 8.5 8 - 20 MMOL/L 10/12/2017 5:02 PM T [facility] BUN CREATININE RATIO 10.5 6 - 26 10/12/2017 5:02 PM CDT [facility] A/G RATIO 1.2 1.0 - 2.0 RATIO 10/12/2017 5:02 PM CDT [facility] EGFR NON-AFR. AMER. 79(L) >90 ML/MIN/1.7 3 M2 10/12/2017 5:02 PM CDT [facility] EGFR AFR. AMER. >90 >90 ML/MIN/1.7 3 M2 10/12/2017 5:02 PM CDT [facility] Comment: NOTE: eGFR is not calculated for patients <18 years of age. This is an estimated GFR (CKD EPI) and should not be used for calculating drug doses. 10/12/2017 4:32 PM CDT us No[facility] Final Result [facility] [address] [place] [address], [place] [phone] * (ABNORMAL) CBC W/DIFF AUTOMATED (10/12/2017 4:32 PM CDT) WBC 6.7 4.8 - 10.8 x10'3/uL 10/12/2017 4:49 PM CDT [facility] RBC 4.91 4.70 - 6.10 x10'6/uL 10/12/2017 4:49 PM CDT [facility] HGB 15.4 14.0 - 18.0 G/DL 10/12/2017 4:49 PM CDT [facility] HCT 46.7 43.0 - 54.0 % 10/12/2017 4:49 PM CDT [facility] MCV 95.1(H) 80.0 - 94.0 FL 10/12/2017 4:49 PM CDT [facility] MCH 31.4(H) 27.0 - 31.0 PG 10/12/2017 4:49 PM CDT [facility] MCHC 33.0 32.0 - 36.0 G/DL 10/12/2017 4:49 PM CDT [facility] RDW 11.5 11.5 - 14.5 % 10/12/2017 4:49 PM CDT [facility] PLT 231 130 - 400 x10'3/uL 10/12/2017 4:49 PM CDT [facility] MPV 10.9 9.3 - 12.2 FL 10/12/2017 4:49 PM CDT [facility] NEUTROPHILS % 70.1(H) 43.0 - 65.0 % 10/12/2017 4:49 PM CDT [facility] LYMPHOCYTES % 23.3 20.0 - 46.0 % 10/12/2017 4:49 PM CDT [facility] MONOCYTES % 5.9 5.0 - 12.0 % 10/12/2017 4:49 PM CDT [facility] EOSINOPHILS 0.5(L) 1.0 - 3.0 % 10/12/2017 4:49 PM CDT [facility] BASOPHILS 0.2 0.0 - 1.0 % 10/12/2017 4:49 PM CDT [facility] IMMATURE GRANS % 0.0 0.0 - 1.0 % 10/12/2017 4:49 PM CDT [facility] 10/12/2017 4:32 PM CDT us Noemi [facility] Final Result [facility] [address] [place], [place] [address] [phone] documented in this encounter Visit Diagnoses Diagnosis Seizure (CMS/HCC HHS/HCC)- Primary Other convulsions History of seizure disorder Personal history of other disorders of nervous system and sense organs documented in this encounter Care Teams Building And Construction Manager Relationship Specialty Start Date End Date Kayla Por[place] [address] PCP - General 06/25/16 09/27/18 Frank Toure MD [facility] [place] [address] [employer] Consultant CARDIOVASCULAR DISEASE 05/30/16 documented as of this encounter
--- OUTSIDE RECORDS SUMMARY | 2024-06-08 05:53 | XMS_ITS | Encounter Summary ---
Author Organization [facility] Address [address] [facility] [place], [place] [address] [place] [id number] Care Team Providers Care Clinical Partner Name Role Phone Frank Toure MD Unavailable Kayla Porras NP Primary Care Provider [phone] Encounter Details Date Type Department Care Team (Latest Contact Info) Description 09/06/2017 Abstract [facility] Social History Tobacco Use [...] filedocumented in this encounter Care Teams Clinical Partner Relationship Specialty Start Date End Date Kayla Porrsa NP [address] [place] [id number] PCP - General 06/25/16 09/27/18 Frank Toure MD [address] [place] [id number] [employer] Instructor Physical CARDIOVASCULAR DISEASE 05/30/16 documented as of this encounter
--- OUTSIDE RECORDS SUMMARY | 2024-06-08 05:53 | XMS_ITS | Encounter Summary ---
Author Organization [facility] Address [address] [place] [address] [place] [address] Care Team Providers Care Sales And Marketing Administrator Name Role Phone Frank Toure MD Unavailable Kayla Porras NP Primary Care Provider [phone] Encounter Details Date Type Department Care Team (Late st Contact Info) Description 11/25/2016 Abstract [facility] Family Medicine - [address] [phone] Misael Maradiaga, [address] [place] [phone] Social History Tobacco Use Types Packs/Day Years Used Date Smoking Tobacco: Never Assessed Sex and Gender Information Value Date Recorded Sex Assigned at Not on file Legal Sex Male 10:23 PM CDT Gender Identity Not on file Sexual Orientation Not on file documented as of this encounter Last Filed Vital Signs Vital Sign Reading Time Taken Comments Blood Pressure 129/78 11/25/2016 2:39 PM CDT Pulse 67 11/25/2016 2:39 PM CDT Temperature - - Respiratory Rate - - Oxygen Saturation - - Inhaled Oxygen Concentration - - Weight 61.2 kg (135 lb) 11/25/2016 2:39 PM CDT Height - - Body Mass Index 18.83 10/22/2016 10:52 AM CDT documented in this encounter Functional Status documented as of this encounter Mental Status * Question Answer Entry Date Author Status Because of a physical, mental, or emotional condition, do you have serious difficulty concentrating, remembering, or making decisions? No 08/28/2017 2:38 PM KASIT Loraine Staley RN A ctive documented in this encounter Progress Notes * Misael Maradiaga, DO - 11/25/2016 2:40 PM CDT Chief Complaint 56 year old male here for follow up discharge visit. History of Present Illness HPI Free Text: f/u Hospital visit Pt had a SZ about 10 days ago, he fell and hit his head on TV he states he was admitted for [address] Hancock, and he continued keppra at 1000mg There is an issue with compliance, as notes show that sister found him and all he meds for the weekwere still present, implying that he did not take his meds He is not sure if he took his meds, he states he may have missed some Since DC, he has not had any problems with SZ He has been SZ free since then He reports he now has a nurse that checks in on him and he has been compliant with his meds He has an abrasion on his forehead no skin repair was done in hospital It was treated with pressure and he is still wearing a bandage over this It does not cause him any pain, but is unsightly for him review of notes also show he had rhabdo from SZ, with CK improving Pt denies any muscle aches or urinary symptoms or discoloration Review of Systems Constitutional: Normal. ENT: normal. Cardiovascular: Normal. Respiratory: Normal. Gastrointestinal: Normal. Genitourinary: Normal. Musculoskeletal: Normal. Psychiatric: Normal. Active Problems 1. Alcohol abuse (305.00) (F10.10) [...] (R56.9) Past Medical History 1. History of colonic polyps (V12.72) (Z86.010) 2. History of stroke (V12.54) (Z86.73) Surgical History [...] CAPSULE PRN; Therapy: (Recorded:22Oct2016) to Recorded 2. Aspirin 81 MG Oral Tablet Delayed Release; TAKE 1 TABLET DAILY DIRECTED; Therapy: 28Jun2016 to (Evaluate:07Jun2017) Requested for: 09Nov2016; Last Rx:09Nov2016 Ordered 3. Atorvastatin Calcium 40 MG Oral Tablet; TAKE 1 TABLET ONCE EVERY DAY AT BEDTIME (TO LOWER CHOLESTEROL); Therapy: 30Sep2016 to (Evaluate:07Jun2017) Requested for: 09Nov2016; Last Rx:09Nov2016 Ordered 4. LevETIRAcetam 1000 MG Oral Tablet; TK 1 T PO BID; Therapy: 29Aug2016 to Recorded 5. Tamsulosin HCl - 0.4 MG Oral Capsule; Take 1 cap daily Requested for: 19Nov2016; Last Rx:19Nov2016 Ordered Allergies 1. No Known Drug Allergies Immunizations Influenza --- Series1: 23Jun2016 Vitals Recorded: 25Nov2016 02:39PM Temperature 98.2 F Heart Rate 67 Respiration 14 Systolic 129 Diastolic 78 O2 Saturation 99 Weight 135 lb BMI Calculated 18.83 BSA Calculated 1.78 Physical Exam Constitutional General appearance: No acute distress, well appearing and well nourished. Eyes Conjunctiva and lids: No swelling, erythema, or discharge. Pupils and irises: Equal, round and reactive to light. Ears, Nose, Mouth, and Throat External inspection of ears and nose: Normal. Oropharynx: Normal with no erythema, edema, exudate or lesions. Pulmonary Respiratory effort: No increased work of breathing or signs of respiratory distress. Auscultation of lungs: Clear to auscultation. Cardiovascular Auscultation of heart: Normal rate and rhythm, normal S1 and S2, without murmurs. Examination of extremities for edema and/or varicosities: Normal. Abdomen Abdomen: Non-tender, no masses. Skin Skin and subcutaneous tissue: Abnormal. over right brow is swelling, healing abrasion that is scabbing over, there is no discharge or foul smell. Psychiatric Mood and affect: Normal. Results/Data Surgical Pathology 22Nov2016 12:00AM Mal Chester Test Name Result Flag Reference Surgical Pathology (Report) - SURGICAL FINAL REPORT Patient Name: MOJGAN TABOR [facility]. Rec. #:[id number] : 1960 (Age: 56) Gender: M Physician(s): MAL CHESTER Client: [facility] Location: [facility] Billing #[id number] Copy To: Taken: 11/22/2016 Received: 11/22/2016 Reported: 11/23/2016 Specimen(s) Received A: Gastric erosions, Biopsy B: Polyp, sigmoid C: Rectal Polyp Final Pathologic Diagnosis A. GASTRIC EROSION, BIOPSY: GASTRIC MUCOSA WITH MILD REACTIVE CHANGES IMMUNOHISTOCHEMICAL STAIN FOR H. PYLORI IS PENDING AND WILL BE REPORTED IN AN ADDENDUM B. SIGMOID COLON POLYPS X 2, BIOPSY: POLYPOID FRAGMENT OF LARGE BOWEL MUCOSA WITH A LYMPHOID AGGREGATE AND MINIMAL HYPERPLASTIC CHANGE (DEEPER SECTIONS ARE EXAMINED) C. RECTAL POLYP, BIOPSY: POLYPOID FRAGMENT OF LARGE BOWEL MUCOSA (DEEPER SECTIONS ARE EXAMINED) adb/11/23/2016 Electronically Signed Out By TONY HUANG Procedures/Addenda Addendum Date Ordered: 11/24/2016 Status: Signed Out Date Complete: 11/24/2016 Date Reported: 11/24/2016 Addendum Diagnosis A. Immunohistochemical stain for H. pylori is performed on the gastric biopsy and is negative. The control slide stains appropriately. Addendum Comment These tests were developed and the performance characteristics determined by [place], [place] and/or [facility]. They have not been cleared or approved by the US Food and Drug Administration (FDA). The FDA has determined that such clearance or approval is not necessary. These tests are used for clinical purposes. Prognostic and predictive testing should be interpreted in the context of additional and/or histopathological findings. TONY HUANG Microscopic Description A. The biopsy of the gastric erosion specimen shows fragments of gastric mucosa with reactive change of the surface epithelium including mild mucin depletion. No activity is seen. B. The biopsy of the sigmoid colon polyp shows polypoid fragments of large bowel mucosa. Deeper sections are examined. C. The biopsy of the rectal polyp shows a fragment of large bowel mucosa. Deeper sections are examined. Clinical History Dysphagia, colon cancer screening Gross Description The specimens are submitted in three containers. A. The first specimen is received in formalin (placed in formalin at 1315), labeled with the patient's name (Mojgan Tabor), birthdate, and biopsy of gastric erosions. The specimen consists of five pieces of soft, light marie-red tissue measuring 0.2 up to 0.5 cm, which are filtered and submitted in toto in one cassette labeled A. B. The second specimen is received in formalin (placed in formalin at 1339), labeled with the patient's name (Mojgan Tabor), birthdate, and sigmoid polyps x2. The specimen consists of two pieces of soft, light marie-red tissue measuring 0.2 and 0.3 cm, which are filtered and submitted in toto in one cassette labeled B. C. The third specimen is received in formalin (placed in formalin at 1341), labeled with the patient's name (Mojgan Tabor), birthdate, and rectal polyp forceps. The specimen consists of a polypoid piece of rubbery, light marie-red tissue measuring 0.3 cm, which is filtered and submitted in one cassette labeled C. adb/ath/11/22/2016 Billing Fee Code(s): 07157(0), 25261 Counseling The patient was counseled regarding instructions for management, impressions and importance of compliance with treatment. total time of encounter was 25 minutes and 20 minutes was spent counseling. Assessment 1. Elevated CK (790.5) (R74.8) 2. Seizures (780.39) (R56.9) 3. Hyperlipidemia (272.4) (E78.5) Plan Dysphagia, Gastric erosion 1. Omeprazole 40 MG Oral Capsule Delayed Release; TAKE 1 CAPSULE EVERY MORNING BEFORE BREAKFAST Rx By: Mal Chester; Dispense: 0 Days ; #:60 Capsule Delayed Release; Refill: 3; For: Dysphagia, Gastric erosion; RACHEL = N; Verified Transmission to [facility] [id number]; Last Updated By: [employer]; 11/22/2016 1:44:30 PM Elevated CK 2. Creatine Kinase ( CK ) ( CPK ); Status:In Progress - Specimen/Data Collected; Done: 25Nov2016 Perform:[facility]; Due:[id number]; Last Updated By:Ana Oliveira; 11/25/2016 2:56:57 PM;Ordered; For:Elevated CK; Ordered By:Misael Maradiaga; Discussion/Summary Pt has compliance issues now has nurse that helps him with this Cont current meds per neuro He has hx of elevated CK, recheck CK, it was downtrending If it continues to remain elevated, will DC atorvastatin which he takes for HLD, will need to treatusing other means for his head wound, this was cleaned and re-dressed, it does not appear infected, appears to be healing f/u prn Signatures Electronically signed by : Misael Maradiaga D.O.; Nov 25 2016 3:15PM MARINE OPERATIONS COORDINATOR (Author) documented in this encounter Plan of Treatment Not on file documented as of this encounter Procedures Procedure Name Priority Date/Time Associated Diagnosis Comments CK (CPK) Routine 11/25/2016 2:56 PM CDT documented in this encounter Results * CK (CPK) (11/25/2016 2:56 PM CDT) CPK 158 39 - 308 U/L [facility] TO EPIC CONVERSION 11/25/2016 2:56 PM CDT 11/25/2016 2:56 PM CDT Narrative [facility] TO EPIC CONVERSION - 11/25/2016 9:13 PM CDT Result Communication: No patient communication needed at this time Misael Maradiaga DO LABORATORY Final Result [facility] TO EPIC CONVERSION documented in this encounter Visit Diagnoses Not on filedocumented in this encounter Care Teams Sales And Marketing Administrator Relationship Specialty Start Date End Date Kayla Porras [place] [address] [place] [address] PCP - General 06/25/16 09/27/18 Frank Toure MD [address] [place] [id number] [place] Concrete Block Maker CARDIOVASCULAR DISEASE 05/30/16 documented as of this encounter
--- OUTSIDE RECORDS SUMMARY | 2024-06-08 05:53 | XMS_ITS | Encounter Summary ---
Author Organization [facility] Address [address] [place] [address] [place] [address] Care Team Providers Care Natural Resource Specialist Name Role Phone Frank Toure MD Unavailable Kayla Porras NP Primary Care Provider [phone] Encounter Details Date Type Department Care Team (Latest Contact Info) Description 01/12/2017 Abstract [facility] Medical Group Social History Tobacco Use [...] on filedocumented in this encounter Care Teams Natural Resource Specialist Relationship Specialty Start Date End Date [place] [address] PCP - General 06/25/16 09/27/18 Frank Toure MD [address] [place] [id number] [place] [employer] Physical Therapist CARDIOVASCULAR DISEASE 05/30/16 documented as of this encounter
--- OUTSIDE RECORDS SUMMARY | 2024-06-08 05:53 | XMS_ITS | Encounter Summary ---
Author Organization [facility] Address [address] [place] [address] [place] [address] Care Team Providers Care Hot Blast Worker Name Role Phone Frank Toure MD Unavailable Kayla Porras NP Primary Care Provider [phone] Encounter Details Date Type Department Care Team (Late st Contact Info) Description 12/09/2016 Abstract [facility] Multispecialty Care - [facility] [address] [place] [address] Mark Devine MD [address] [place] [address] Social History Tobacco Use Types Packs/Day Years Used Date Smoking Tobacco: Never Assessed Sex and Gender Information Value Date Recorded Sex Assigned at Not on file Legal Sex Male 10:23 PM CDT Gender Identity Not on file Sexual Orientation Not on file documented as of this encounter Last Filed Vital Signs Vital Sign Reading Time Taken Comments Blood Pressure 130/75 12/09/2016 12:06 PM CDT Pulse 70 12/09/2016 12:06 PM CDT Temperature - - Respiratory Rate - - Oxygen Saturation - - Inhaled Oxygen Concentration - - Weight 63.1 kg (139 lb) 12/09/2016 12:06 PM CDT Height - - Body Mass Index 19.39 10/22/2016 10:52 AM CDT documented in this encounter Functional Status documented as of this encounter Mental Status * Question Answer Entry Date Author Status Because of a physical, mental, or emotional condition, do you have serious difficulty concentrating, remembering, or making decisions? No 08/28/2017 2:38 PM CDT Loraine Staley RN A ctive documented in this encounter Progress Notes * Mark Devine MD - 12/09/2016 11:00 AM CDT History of Present Illness 56 yo man with a history of alcoholism (used to drink heavier, but in the last 6 months he has decreased his alcohol consumption to 1 beer a day ). He also has a history of alcohol induced/withdrawalseizures and a right sided hemorrhagic infarct. Referred to GI clinic for colon cancer screening. He did undergo a colonoscopy with benign polyps and some antral erosions, PPI was not approved by insurance. Denies dysphagia, no regurgitation, no abdominal pain, no heart burn or acid reflux. occasional constipation/straining or diarrhea, no hematochezia or melena. No weight loss, he can't gain theweight, no prior abdominal surgeries. No family hx colon cancer. Review of Systems Constitutional: Negative for fevers, chills, fatigue and malaise Eyes: negative for visual disturbance ENT: negative for tinnitus, nasal congestion, sore mouth, sore throat, hoarseness and voice change Respiratory: negative for cough, sputum, hemoptysis, dyspnea Cardiovascular: Negative chest pain, sob. Gastrointestinal:see HPI Genitourinary:negative for dysuria, nocturia, urinary incontinence, hematuria Hematologic/lymphatic: negative for easy bruising, bleeding Musculoskeletal: negative for myalgias, +arthralgias in lower back on PT twice a week Neurological: negative for headaches, dizziness, vertigo and prior seizures Active Problems 1. Alcohol abuse (305.00) (F10.10) 2. Dysphagia (787.20) (R13.10) 3. Dysphagia (787.20) (R13.10) 4. Elevated CK (790.5) (R74.8) 5. 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 History of CVA (cerebrovascular accident) (V12.54) (Z86.73) 7. Hyperlipidemia (272.4) (E78.5) 8. Hypertension (401.9) (I10) 9. Imbalance (781.2) (R26.89) 10. Low back pain (724.2) (M54.5) 11. Need for hepatitis C screening test (V73.89) (Z11.59) 12. Screening for colon cancer (V76.51) (Z12.11) 13. Screening PSA (prostate specific antigen) (V76.44) (Z12.5) 14. Seizures (780.39) (R56.9) Past Medical History 1. History of colonic polyps (V12.72) (Z86.010) 2. History of stroke (V12.54) (Z86.73) Surgical History 1. History of Colonoscopy ?? 11/22/16: [facility] (3 small polyps removed) 2. History of Esophagogastroduodenoscopy ?? 11/22/16: [facility] (antral erosion, mild duodenal bulb erythema) [...] 500 MG CAPS; TAKE CAPSULE PRN; Therapy: (Recorded:[id number]) to Recorded Dispense: 0 Days ; #: Sufficient Capsule; Refill: 0; RACHEL = N; Record; Last Updated By: Dina Martinez; 10/22/2016 10:04:12 AM 2. Aspirin 81 MG Oral Tablet Delayed Release; TAKE 1 TABLET DAILY DIRECTED; Therapy: 28Jun2016 to (Evaluate:07Jun2017) Requested for: 09Nov2016; Last Rx:09Nov2016 Ordered Rx By: Misael Maradiaga; Dispense: 30 Days ; #:30 Tablet Delayed Release; Refill: 6; For: Hyperlipidemia; RACHEL = N; Verified Transmission to [facility]; Last Updated By: Place[employer]logger; 11/09/2016 11:33:36 AM 3. Atenolol 25 MG Oral Tablet; TK 1 T PO QD; Therapy: 17Nov2016 to Recorded Rx By: PRASHANT GODFREY; Dispense: 30 Days ; #:30 TABS; Refill: 0; RACHEL = N; Record; Last Updated By: Michelle Mejia; 11/25/2016 2:40:25 PM 4. Atorvastatin Calcium 40 MG Oral Tablet; TAKE 1 TABLET ONCE EVERY DAY AT BEDTIME (TO LOWER CHOLESTEROL); Therapy: 30Sep2016 to (Evaluate:07Jun2017) Requested for: 09Nov2016; Last Rx:09Nov2016 Ordered Rx By: Misael Maradiaga; Dispense: 30 Days ; #:1 X 30 Tablet Box; Refill: 6; For: Hyperlipidemia; RACHEL = N; Verified Transmission to [facility]; Last Updated By: Place[employer]; 11/09/2016 11:33:36 AM 5. BusPIRone HCl - 10 MG Oral Tablet; Therapy: 17Nov2016 to Recorded Rx By: PRASHANT GODFREY; Dispense: 30 Days ; #:90 TABS; Refill: 0; RACHEL = N; Record; Last Updated By: Michelle Mejia; 11/25/2016 2:40:25 PM 6. LevETIRAcetam 1000 MG Oral Tablet; TK 1 T PO BID; Therapy: 29Aug2016 to Recorded Rx By: MONICA NEFF; Dispense: 30 Days ; #:60 TABS; Refill: 0; RACHEL = N; Record; Last Updated By: Patricia Camilo; 09/13/2016 2:04:38 PM 7. Omeprazole 20 MG Oral Capsule Delayed Release; TAKE 1 CAPSULE DAILY EVERY MORNING BEFORE BREAKFAST; Therapy: [id number] to (Evaluate:31May2017) Requested for: 02Dec2016; Last Rx:[id number] Ordered Rx By: Mark Devine; Dispense: 90 Days ; #:90 Capsule Delayed Release; Refill: 1; For: Gastric erosion; RACHEL = N; Verified Transmission to [facility]; Last Updated By: PlaceBlogger; 12/02/2016 7:55:51 AM 8. Tamsulosin HCl - 0.4 MG Oral Capsule; Take 1 cap daily Requested for: 19Nov2016; Last Rx:19Nov2016 Ordered Rx By: Misael Maradiaga; Dispense: 0 Days ; #:90 Capsule; Refill: 1; For: Health Maintenance; RACHEL = N; Ver[facility] Transmission [facility] [id number]; Last Updated By: Place[employer]logger; 11/19/2016 9:28:34 AM Allergies 1. No Known Drug Allergies Recorded By: Dina Dennis; 07/24/2015 1:54:45 PM Vitals Recorded: [id number] 12:06PM Heart Rate 70 Pulse Quality Normal Respiration 14 Systolic 130, Sitting Diastolic 75, Sitting O2 Saturation 97, RA Weight 139 lb BMI Calculated 19.39 BSA Calculated 1.81 Physical Exam General: appearance: normal, alert, no distress, appears stated age HEENT: conjunctivae/corneas clear, anicteric sclerae, moist mucosa, poor dentition Lungs: clear to auscultation bilaterally, no added sounds Heart: RRR, normal S1 and S2, no loud murmur Abdomen: soft, no masses palpable, non-tender, non-distended, normoactive bowel sounds. Extremities: no edema Skin: No rashes or lesions, no jaundice Neuro: Appropriate, oriented x 3 Procedure EGD and Colon 11/22/2016 Impression: - Antral erosions. Biopsied. - Mild duodenal bulb erythema. Recommendation: - Await pathology results - start Omeprazole 40 mg AM AC - Proceed with colonoscopy Impression: - 3 small polyps. Resected and retrieved. - The examination was otherwise normal. Recommendation: - Discharge patient to home (with escort). - Resume regular diet today. - Await pathology results. - Repeat colonoscopy in 5-10 years for surveillance based on pathology results. - Return to referring physician as previously scheduled. - Return to clinic as scheduled in November Received: 11/22/2016 Reported: 11/23/2016 Specimen(s) Received A: [...] LARGE BOWEL MUCOSA (DEEPER SECTIONS ARE EXAMINED) Counseling chew food well Assessment 1. 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 Dysphagia (787.20) (R13.10) 1. Average risk for colon cancer screening - colonoscopy with hyperplastic polyps, repeat colonoscopy in 10 years 2. Dysphagia to solids improved, EGD showed antral erosions but no esophageal findings to explain his symptoms, his dysphagia resolved completely. will need to start PPI daily OTC is ok as insurance declined coverage despite prior auth attempts. 3. Tobacco use- counseled to quit RINKU Plan - PPI x 6 weeks - Chew food well especially given his poor dentition - Repeat colonoscopy in 10 years for screening purposes - All questions answered - RTC as needed Signatures Electronically signed by : Mark Devine MD; Dec 09 2016 12:23PM VENEER GLUE SPREADER (Author) documented in this encounter Plan of Treatment Not on file documented as of this encounter Visit Diagnoses Not on filedocumented in this encounter Care Teams Hot Blast Worker Relationship Specialty Start Date End Date Kayla Porras [place] [address] [place] [address] PCP - General 06/25/16 09/27/18 Frank Toure MD [address] [place] [id number] [place] Business Process Lead CARDIOVASCULAR DISEASE 05/30/16 documented as of this encounter
--- OUTSIDE RECORDS SUMMARY | 2024-06-08 05:53 | XMS_ITS | Encounter Summary ---
Author Organization [facility] Address [address] [place], [place] [address] [place] [address] Care Team Providers Care Sheet Metal Duct Installer Apprentice Name Role Phone Frank Toure MD Unavailable Kayla Porras NP Primary Care Provider [phone] Encounter Details Date Type Department Care Team (Latest Contact Info) Description 11/17/2016 Abstract [facility] , Jerica Cordon [...] RN A ctive documented in this encounter Procedure Notes * Misael Maradiaga, - 11/16/2016 1:15 PM CDT [place] [address] Patient: BI TABOR Med Rec#: [id number] Birthdate: 1960 Admit/Svce Date: 11/13/2016 Disch Date: Attending Md: PRASHANT GODFREY MD Exam 11/16/2016 @ 13:15 TECH: LB Date/Time: Accession Number [id number] CHART DOCUMENT INDICATIONS: ABNORMAL ELECTROCARDIOGRAM RISK FACTORS: HYPERTENSION, UNABLE TO AMBULATE ON TREADMILL DUE TO HISTORY OF CEREBROVASCULAR ACCIDENTS BASELINE: HR 74 BPM, BLOOD PRESSURE 136/78 MMHG, PULSE OX 97% TYPE OF STRESS: LEXISCAN 0.4MG MAXIMUM: HR 146 BPM 88% MPHR, PEAK BLOOD PRESSURE 143/71 MMHG, METS: 1. SYMPTOMS: NONE BLOOD PRESSURE RESPONSE: NORMAL TERMINATED DUE TO: PROTOCOL END RESTING ELECTROCARDIOGRAM: NORMAL SINUS RHYTHM, POSSIBLE PRIOR ANTEROSEPTAL MYOCARDIAL INFARCTION PATTERN STRESS ELECTROCARDIOGRAM: NO ST SEGMENT CHANGES DIAGNOSTIC OF ISCHEMIA, ON ATRIAL TRIPLET. CONCLUSIONS: 1.CLINICALLY NEGATIVE. 2.ELECTROCARDIOGRAM NEGATIVE. 3.NUCLEAR IMAGES PENDING. Electronically Signed By: TRESSA PEREZ MD 11/17/2016 12:50 P TRESSA PEREZ MD P #[id number] A/ecc Document # [id number] Report Type:CD cc: Malena RICHARDSON M.D. PANDURANGA KINI, M.D. ROOP LAL, M.D. ANTHONY L. TRUONG, D.O. documented in this encounter Plan of Treatment Not on file documented as of this encounter Visit Diagnoses Not on filedocumented in this encounter Care Teams Sheet Metal Duct Installer Apprentice Relationship Specialty Start Date End Date Kayla [place] [address] PCP - General 06/25/16 09/27/18 Frank Toure MD [address] [place] [address] [place] Grocery Buyer CARDIOVASCULAR DISEASE 05/30/16 documented as of this encounter
--- OUTSIDE RECORDS SUMMARY | 2024-06-08 05:53 | XMS_ITS | Encounter Summary ---
Author Organization [facility] Address [address] [place] [address] [place] [address] Care Team Providers Care Movie Writer Name Role Phone Frank Toure MD Unavailable Kayla Porras NP Primary Care Provider [phone] Encounter Details Date Type Department Care Team (Late st Contact Info) Description 05/16/2017 Abstract [facility] Family Medicine - [address] [phone] Misael Maradiaga, [address] [place] [phone] Social History Tobacco Use Types Packs/Day Years [...] Sign Reading Time Taken Comments Blood Pressure 120/70 05/16/2017 1:38 PM CERAMICS INSTRUCTOR Pulse 72 05/16/2017 1:38 PM CERAMICS INSTRUCTOR Temperature - - Respiratory Rate - - Oxygen Saturation - - Inhaled Oxygen Concentration - - Weight 59.7 kg (131 lb 9 oz) 05/16/2017 1:38 PM CERAMICS INSTRUCTOR Height 180.3 cm (5' 11 ) 05/16/2017 1:38 PM CERAMICS INSTRUCTOR Body Mass Index 18.35 05/16/2017 1:38 PM CERAMICS INSTRUCTOR documented in this encounter Functional Status documented as of this encounter Mental Status * Question Answer Entry Date Author Status Because of a physical, mental, or emotional condition, do you have serious difficulty concentrating, remembering, or making decisions? No 08/28/2017 2:38 PM CDT Loraine Staley RN A ctive documented in this encounter Progress Notes * Misael Chau Hiren, DO - 05/16/2017 2:00 PM CST Chief Complaint Pt presents for follow up from [facility] ER 04/29. Pt dx Atypical seizure and right broken foot. History of Present Illness He is currently on keppra 500 3 tabs po bid He states he ran out of his SZ meds about 1 week prior to having an atypical SZ His neurologist is at [facility] and he sees them every few months he was given a 3 week supply of his SZ meds when he was DC from hospital and is running low on this he states he typically gets his SZ meds from his neurologist but has not yet called them he has f/u with neuro end of the month He also sprained his ankle and found to have a right broken foot He is currently wearing a splint and wears thick socks over this and uses this as a shoe He denies any more pain in his foot or ankle Review of systems General: denies any fevers, chills. Gastrointestinal: Patient denies any nausea, vomiting, diarrhea or constipation Cardiovascular: Patient denies Chest pain, shortness of breath. Physical Exam General: Well-developed, well-nourished, in no acute distress. Eyes: Conjunctiva and lids: no swelling, erythema or discharge Lungs: Clear to auscultation bilaterally without wheezing, rhonchi or crackles. No increase work ofbreathing or signs of respiratory distress Heart: Regular rate and rhythm without murmurs, clicks or bruits. Extremities: right foot: FROM, no bony TTP Neuro: grossly intact. Psych: Normal mood, normal [...] History 1. History of Colonoscopy ?? 11/22/16: [facility] (3 small polyps removed) 2. History of Esophagogastroduodenoscopy ?? 11/22/16: [facility] (antral erosion, [...] 500 MG CAPS; TAKE CAPSULE PRN; Therapy: (Recorded:[id number]) to Recorded 2. Acetaminophen-Codeine #3 300-30 MG Oral Tablet; Therapy: (Recorded:[id number]) to Recorded 3. AmLODIPine Besylate 5 MG Oral Tablet; TAKE 1 TABLET DAILY DIRECTED Requested for: 25Mar2017; Last Rx:25Mar2017 Ordered 4. Aspirin 81 MG Oral Tablet Delayed Release; TAKE 1 TABLET DAILY DIRECTED; Therapy: 28Jun2016 to (Evaluate:07Jun2017) Requested for: 09Nov2016; Last Rx:09Nov2016 Ordered 5. Atorvastatin Calcium 40 MG Oral Tablet; TAKE 1 TABLET ONCE EVERY DAY AT BEDTIME (TO LOWER CHOLESTEROL); Therapy: 27Agj8921 to (Evaluate:07Jun2017) Requested for: 09Nov2016; Last Rx:09Nov2016 Ordered 6. BusPIRone HCl - 10 MG Oral Tablet; Therapy: 17Nov2016 to Recorded 7. Gabapentin 300 MG Oral Capsule; TK 1 C PO BID; Therapy: 01Mar2017 to Recorded 8. LevETIRAcetam 1000 MG Oral Tablet; TK 1 T PO BID; Therapy: 29Aug2016 to Recorded 9. Metoprolol Succinate ER 25 MG Oral Tablet Extended Release 24 Hour; TAKE 1 TABLET DAILY; Therapy: 10Feb2017 to (Evaluate:09Aug2017) Recorded 10. Omeprazole 20 MG Oral Capsule Delayed Release; TAKE 1 CAPSULE DAILY EVERY MORNING BEFORE BREAKFAST; Therapy: [id number] to (Evaluate:31May2017) Requested for: 45Xep2707; Last Rx:[id number] Ordered 11. Tamsulosin HCl - 0.4 MG Oral Capsule; Take 1 cap daily Requested for: 19Nov2016; Last Rx:19Nov2016 Ordered 12. Vitamin B1 100 MG TABS; TAKE 1 TABLET DAILY DIRECTED; Therapy: 11Uno5596 to (Evaluate:42Gjh1584) Requested for: 58Dpq4892; Last Rx:[id number] Ordered Allergies 1. No Known Drug Allergies Immunizations Influenza --- Series1: 23-Jun-2016 PPSV --- Series1: 13-Aug-2015 Tdap --- Series1: 23-Mar-2017 Vitals Recorded: 16May2017 01:38PM Temperature 96.9 F Heart Rate 72 Respiration 16 Systolic 120 Diastolic 70 O2 Saturation 99 Height 5 ft 11 in Weight 131 lb 9 oz BMI Calculated 18.35 BSA Calculated 1.77 Assessment 1. Seizures (780.39) (R56.9) 2. Fracture of metatarsal (825.25) (S92.309A) Plan Seizures 1. LevETIRAcetam 500 MG Oral Tablet; TAKE 3 TABLETS TWICE DAILY Rx By: Misael Maradiaga; Dispense: 7 Days ; #:42 Tablet; Refill: 0; For: Seizures; RACHEL = N; Sent To:[facility] Discussion/Summary SZ I refilled his meds for 1 week advised he should not ever run out of his meds advised he call his neurologist today for med refill if unable to, let me know and I can fill another short duration until he can get in to see them at the end of the month I advised him to removed the splint as his sprain has healed, and tx for MT fracture is hard sole shoe. We are nearly 3 weeks out now, ok to DC his splint so he can wear a shoe, and if + pain with walking with shoe, we can get him a hard sole shoe Signatures Electronically signed by : Misael Maradiaga D.O.; May 16 2017 2:21PM CERAMICS INSTRUCTOR (Author) documented in this encounter Plan of Treatment Not on file documented as of this encounter Visit Diagnoses Not on filedocumented in this encounter Care Teams Movie Writer Relationship Specialty Start Date End [place] [address] PCP - General 06/25/16 09/27/18 Frank Toure MD [address] [place] [id number] Chivo Lapidarist CARDIOVASCULAR DISEASE 05/30/16 documented as of this encounter
--- OUTSIDE RECORDS SUMMARY | 2024-06-08 05:53 | XMS_ITS | Encounter Summary ---
Author Organization [facility] Address [address] [place] [address] [place] [address] Care Team Providers Care Director Of Institutional Giving Name Role Phone Frank Toure MD Unavailable Kayla Porras NP Primary Care Provider Reason for Visit * Reason Comments Radiology Results Encounter Details Date Type Department Care Team (Late st Contact Info) Description 08/29/2017 Scan [facility] [place] [address] Scanned, Documents Radiology Results Social History Tobacco Use Types Packs/Day [...] Status No 08/28/2017 2:38 PM Loraine Liao R N Active documented as of this encounter Mental [...] Date/Time Associated Diagnosis Comments CT GENERIC Routine 08/24/2017 IMAGE GENERIC Routine 08/24/2017 documented in this encounter Results * CT (08/24/2017) Anatomical Region Laterality Modality Other us Documents Scanned SCANNING Final Result * IMAGE STUDY (08/24/2017) Anatomical Region Laterality Modality Other us Documents Scanned SCANNING Final Result documented in this encounter Visit Diagnoses Not on filedocumented in this encounter Care Teams Director Of Institutional Giving Relationship Specialty Start Date End Date Kayla Porras [place] [address] PCP - General 06/25/16 09/27/18 Frank Toure MD [address] [place] [id number] [employer] Button Maker And Installer CARDIOVASCULAR DISEASE 05/30/16 documented as of this encounter
--- OUTSIDE RECORDS SUMMARY | 2024-06-08 05:53 | XMS_ITS | Encounter Summary ---
Author Organization [facility] Address [address] [facility] [place], [place] [id number] [place] [address] Care Team Providers Care Private Branch Exchange Service Adviser Name Role Phone Frank Toure MD Unavailable Kayla Porras NP Primary Care Provider [phone] Encounter Details Date Type Department Care Team (Latest Contact Info) Description 09/07/2017 Abstract [facility] Medical [facility] Social History Tobacco [...] on filedocumented in this encounter Care Teams Private Branch Exchange Service Adviser Relationship Specialty Start Date End Date Kayla Porras NP [address] [place] [id number] PCP - General 06/25/16 09/27/18 Frank Toure MD [address] [place] [id number] Chivo Utility Specialist CARDIOVASCULAR DISEASE 05/30/16 documented as of this encounter
--- OUTSIDE RECORDS SUMMARY | 2024-06-08 05:53 | XMS_ITS | Encounter Summary ---
Author Organization [facility] Address [address] [facility]. [place], [place] [id number] [place] [id number] Care Team Providers Care Manager Surgery Name Role Phone Frank Toure MD Unavailable Kayla Porras NP Primary Care Provider [phone] Reason for Referral * (Routine) - Closed Specialty Diagnoses / Procedures Referred By Contac t Referred To Contact Procedures SPLINT APPLICATION Morena Paulino MD Phone: tel: fax: Referral ID Status Reason Start Date Expiration Date Visits Re quested Visits Authorized [id number] Closed 04/29/2017 05/30/2018 1 1 ETING SERVICES MANAGER * (Routine) - Closed Specialty Diagnoses / Procedures Referred By Contac t Referred To Contact Procedures ORTHOPEDIC INJURY TREATMENT Morena Paulino MD Phone: tel: fax: Referral ID Status Reason Start Date Expiration Date Visits Re quested Visits Authorized [id number] Closed 04/29/2017 05/30/2018 1 1 ETING SERVICES MANAGER * (Emergency) - Closed Specialty Diagnoses / Procedures Referred By Contac t Referred To Contact Procedures CT HEAD WO CON Morena Paulino MD Phone: tel: fax: Referral ID Status Reason Start Date Expiration Date Visits Re quested Visits Authorized [id number] Closed 04/29/2017 05/30/2018 1 1 ETING SERVICES MANAGER Reason for Visit * Reason Comments Ankle/foot Pain rt foot pain. report s seizure this morning at approx 1000. reports helton. reports last seizure 2 weeks ago and seen at [facility]. per brother, seizure was a couple months ago. Seizures Encounter Details Date Type Department Care Team (Late st Contact Info) Description 04/29/2017 4:45 PM MARKETING SERVICES MANAGER - 04/29/2017 10:10 PM MARKETING SERVICES MANAGER Emergency Health system [place] [address] Morena Paulino MD [address] [facility] [place] [place] [address] Ankle/foot Pain (rt foot pain. reports seizure this morning at approx 1000. reports helton. reports last seizure 2 weeks ago and seen at [facility]. per brother, seizure was a couple months ago.); Seizures Discharge Disposition: Home or Self Care [...] Sign Reading Time Taken Comments Blood Pressure 149/92 04/29/2017 8:00 PM MARKETING SERVICES MANAGER Pulse 83 04/29/2017 7:40 PM MARKETING SERVICES MANAGER Temperature - - Respiratory Rate 18 04/29/2017 7:40 PM MARKETING SERVICES MANAGER Oxygen Saturation 99% 04/29/2017 8:00 PM MARKETING SERVICES MANAGER Inhaled Oxygen Concentration - - Weight 63.5 kg (140 lb) 04/29/2017 4:40 PM MARKETING SERVICES MANAGER Height 180.3 cm (5' 11 ) 04/29/2017 4:40 PM MARKETING SERVICES MANAGER Body Mass Index 19.53 04/29/2017 4:40 PM MARKETING SERVICES MANAGER documented in this encounter Discharge Instructions * Discharge Instructions* Morena Paulino MD - 04/29/2017 7:54 PM MARKETING SERVICES MANAGER Images from the original note were not included. Close follow-up without fail till resolution and further diagnostic imaging as indicated with handson reassessment. Ice OCL walker continue all medicines call follow-up with your doctor for further definitive care Foot Fracture Discharge Instructions About this topic This is a break in one or more bones that make up your foot. It is caused by a trauma to the bones in your foot. Trauma may be due to: ?? Falls ?? Direct impact or blow on your foot ?? Heavy object falling on your foot ?? Over-twisting of the foot What care is needed at home? Ask your doctor what you need to do when you go home. Make sure you ask questions if you do not understand what the doctor says. This way you will know what you need to do. You may need to have a brace, cast, or splint on your foot. Ask your doctor if you: ?? Need to use crutches to keep weight off your foot. ?? Should use an elastic bandage, brace, or neoprene sleeve for support and to ease swelling. ?? May drive. ?? Are allowed to bathe or shower. Your doctor will talk with you about proper care at home. You may also need to: ?? Rest. Allow your injury to heal before you do slow movements. ?? Place an ice pack or a bag of frozen peas wrapped in a towel over the painful part. Never put ice right on the skin. Do not leave the ice on more than 10 to 15 minutes at a time. ?? Prop your foot on pillows to help with swelling. ?? Wiggle your toes often. This will help blood flow. ?? Wear protective footwear to lower stress on your foot. What follow-up care is needed? Your brace, splint, or cast may need to be removed. Your doctor may order you to have an x-ray. Your doctor may ask you to make visits to the office to check on your progress. Be sure to keep these visits. What drugs may be needed? The doctor may order drugs to: ?? Help with pain and swelling ?? Fight an infection Will physical activity be limited? You may need to rest your foot for a while. You should not do physical activity that makes your foot hurt. If you run, work out, or play sports, you may not be able to do those things until your footgets better. What problems could happen? ?? If your fracture fails to heal, you may need to have surgery. ?? You may develop arthritis. ?? You may not have the same range or amount of movement you had before the injury. What can be done to prevent this health problem? ?? Improve your health, eating habits, and overall fitness. ?? Avoid falls to stop more fractures. ?? Use proper clothing when you are playing sports. This may include ankle supports and elbow and knee pads. When do I need to call the doctor? ?? Signs of wound infection. These include swelling, redness, warmth around the wound; too much pain when touched; yellowish, greenish, or bloody discharge; foul smell coming from the cut site; cut site opens up. ?? Numbness, coldness, or blue color of the foot ?? Very bad pain, swelling, or bleeding in your foot ?? Brace or splint are damaged ?? Soreness or redness around the area of your brace or splint ?? Health problem is not better or you are feeling worse Teach Back: Helping You Understand The Teach [...] ?? I can tell you about my fracture. ?? I can tell you how to care for my injured area. ?? I can tell you what may help ease my pain. ?? I can tell you what I will do if I have more pain or I have more numbness and tingling and swelling. Where can I learn more? [employer] http://orthoinfo.aaos.org/topic.cfm?fmdgr=V24209 [place] [employer] http://orthoinfo.aaos.org/topic.cfm?dxddv=B91728 [employer] http://www.foothealthfacts.org/what-is/ns_fracture.htm Last Reviewed Date 2015-01-21 Consumer Information Use and Disclaimer This information [...] is right for you. Copyright Copyright ?? 2017 [employer] and its affiliates and/or licensors. All rights reserved. Seizures Discharge Instructions, Adult About this topic [...] Foundation http://www.epilepsyfoundation.org/aboutepilepsy/healthrisks/injuriesfromseizures .cfm Epilepsy Foundation http://www.epilepsyfoundation.org/aboutepilepsy/whatisepilepsy/index.cfm [employer] [place] [employer] Neurological Disorders and Stroke http://www.ninds.nih.gov/disorders/epilepsy/detail_epilepsy.htm Last [...] is right for you. Copyright Copyright ?? 2017 [employer] and its affiliates and/or licensors. All rights reserved. Close follow-up without fail till resolution and further diagnostic imaging as indicated with handson reassessment. Ice OCL walker seizure precaution comply with your Keppra dose 1.5 g twice daily call follow-up return problem concern ETING SERVICES MANAGER documented in this encounter Medications at Time of Discharge acetaminophen-cod eine 300-30 MG tablet Take 1 tablet by mouth every 6 (six) hours as needed for Pain. 12 tablet 04/29/2017 09/01/2018 busPIRone 10 MG tablet 11/17/2016 08/21/2018 metoprolol succinate ER 25 MG 24 hr tablet Take 1 tablet by mouth daily. 02/10/2017 09/01/2018 documented as of this encounter ED Notes * Yary Brown RN - 04/29/2017 8:02 PM CST Pt' brother -iesha called . Left a voice mail that pt was discharged and needed to bepicked up. Also To return call to hospital. ETING SERVICES MANAGER ETING SERVICES MANAGER * Morena Paulino MD - 04/29/2017 7:18 PM CSTAssociated Order(s): ORTHOPEDIC INJURY TREATMENT; SPLINT APPLICATION Images from the original note were not included. Chief Complaint Chief Complaint Patient presents with ??? Ankle/foot Pain rt foot pain. reports seizure this morning at approx 1000. reports helton. reports last seizure 2 weeksago and seen at [facility]. per brother, seizure was a couple months ago. ??? Seizures History of Present Illness Patient is a 57-year-old male presenting with seizures. History provided by: Patient Seizures Seizure activity on arrival: no Seizure type: Unable to specify Preceding symptoms comment: I had a seizure in my sleep early this morning first one at 3 this morning Initial focality: None Episode characteristics: abnormal movements Postictal symptoms comment: No postictal state good recall another seizure at 6:00 i had a seizure in my sleep Severity: Mild Timing: Intermittent Number of seizures this episode: 2 Progression: Resolved Context: medical non-compliance and previous head injury Context: not cerebral palsy, not change in medication, not drug use, not fever, not intracranial lesion, not intracranial shunt, not possible hypoglycemia and not possible medication ingestion Context comment: I have not drank in 2 years has been taking my Keppra 1.5 g twice a day Recent head injury: No recent head injuries History of seizures: yes Date of most recent prior episode: 2 weeks ago Severity: Mild Seizure control level: Well controlled Current therapy: Levetiracetam (1.5 g twice daily) Compliance with current therapy: Variable Medical History ALLERGIES: No Known Allergies MEDICATIONS: Prior to Admission medications Medication Sig Start Date End Date Taking? Authorizing Provider acetaminophen-codeine 300-30 MG tablet Take 1 tablet by mouth every 6 (six) hours as needed for Pain. 04/29/17 Yes Morena Paulino MD PAST MEDICAL HISTORY: Past Medical History: Diagnosis Date ??? HLD (hyperlipidemia) ??? Hypertension ??? Seizures ??? Stroke lt side weakness PAST SURGICAL HISTORY: No past surgical history on file. FAMILY HISTORY: No family history on file. SOCIAL HISTORY: Social History Substance Use Topics ??? Smoking status: Current Every Day Smoker ??? Smokeless tobacco: Never Used ??? Alcohol use No Review of Systems Review of Systems Constitutional: Negative for chills, fatigue and fever. HENT: Negative for dental problem, ear discharge, facial swelling and sinus pressure. Eyes: Negative for pain. Respiratory: Negative for cough and chest tightness. Endocrine: Negative for heat intolerance and polydipsia. Genitourinary: Negative for enuresis and hematuria. Musculoskeletal: Negative for gait problem and joint swelling. Skin: Negative for pallor and rash. Allergic/Immunologic: Negative for environmental allergies. Neurological: Positive for seizures. Negative for facial asymmetry and numbness. Hematological: Negative for adenopathy. Does not bruise/bleed easily. Psychiatric/Behavioral: Negative for confusion, decreased concentration and dysphoric mood. All other systems reviewed and are negative. Physical Exam Filed Vitals: 04/29/17 1636 04/29/17 1640 04/29/17 1909 04/29/17 1940 BP: 118/82 151/76 137/86 Pulse: 100 89 83 Resp: 18 18 18 SpO2: 98% 100% 100% Weight: 63.5 kg (140 lb) Height: 5' 11 (1.803 m) 5' 11 (1.803 m) Physical Exam Constitutional: He is oriented to person, place, and time. He appears well- developed and well-nourished. HENT: Head: Normocephalic. Eyes: EOM are normal. Neck: No JVD present. No tracheal deviation present. No thyromegaly present. Cardiovascular: Normal rate and regular rhythm. No murmur heard. Pulmonary/Chest: No respiratory distress. He has no wheezes. Abdominal: There is no tenderness. There is no rebound. Musculoskeletal: He exhibits no edema. Right ankle: He exhibits no swelling, no ecchymosis and no deformity. Tenderness. No lateral malleolus and no medial malleolus tenderness found. Achilles tendon normal. Feet: Tenderness dorsal foot right neurovascular intact Neurological: He is alert and oriented to person, place, and time. He displays normal reflexes. No cranial nerve deficit. Skin: Skin is warm and dry. No rash noted. Psychiatric: He has a normal mood and affect. His behavior is normal. Thought content normal. Nursing note and vitals reviewed. Diagnostic Studies / Procedures ELECTROCARDIOGRAMS: No results found for this visit on 04/29/17. LABORATORY STUDIES: Results for orders placed or performed during the hospital encounter of 04/29/17 CBC W/DIFF AUTOMATED Result Value Ref Range WBC 13.8 (H) 4.8 - 10.8 x10'3/uL RBC 4.43 (L) 4.70 - 6.10 x10'6/uL HGB 14.2 14.0 - 18.0 G/DL HCT 42.0 (L) 43.0 - 54.0 % MCV 94.8 (H) 80.0 - 94.0 FL MCH 32.1 (H) 27.0 - 31.0 PG MCHC 33.8 32.0 - 36.0 G/DL RDW 11.6 11.5 - 14.5 % PLT 199 130 - 400 x10'3/uL MPV 11.4 9.3 - 12.2 FL NEUTROPHILS 77.3 (H) 43.0 - 65.0 % LYMPHOCYTES 14.4 (L) 20.0 - 46.0 % MONOCYTES 7.7 5.0 - 12.0 % EOSINOPHILS 0.0 (L) 1.0 - 3.0 % BASOPHILS 0.2 0.0 - 1.0 % IMMATURE GRANS 0.4 0.0 - 1.0 % COMPREHENSIVE METABOLIC PANEL Result Value Ref Range GLUCOSE 80 70 - 99 MG/DL BUN 14 7 - 18 MG/DL CREATININE 0.96 0.7 - 1.3 MG/DL SODIUM 140 136 - 145 MMOL/L POTASSIUM 3.6 3.5 - 5.1 MMOL/L CHLORIDE 108 100 - 108 MMOL/L CO2 23.6 21 - 32 MMOL/L CALCIUM 9.5 8.5 - 10.1 MG/DL TOTAL BILIRUBIN 0.9 0.2 - 1.2 MG/DL TOTAL PROTEIN 7.8 6.4 - 8.2 G/DL ALBUMIN 4.4 3.4 - 5.0 G/DL AST 70 (H) 15 - 37 U/L ALT 33 16 - 60 U/L ALK PHOS 86 50 - 136 U/L ANION GAP 12.0 8 - 20 MMOL/L BUN CREATININE RATIO 14.6 6 - 26 A/G RATIO 1.3 1.0 - 2.0 RATIO eGFR Non-Afr. Amer. >60 >60 ML/MIN/1.73 M2 eGFR Afr. Amer. >60 >60 ML/MIN/1.73 M2 ETHANOL Result Value Ref Range Alcohol <0.003 <0.003 G/DL ACETAMINOPHEN Result Value Ref Range Acetaminophen 2.9 (L) 10.0 - 30.0 MCG/ML SALICYLATE Result Value Ref Range Salicylates <1.7 (L) 2.8 - 20.0 MG/DL IMAGING STUDIES XR ANKLE RT M3V Final Result by User, [id number] (04/29 1739) Examination: Right ankle 3 views Exam date/time: 04/29/2017 5:04 PM Reason For Exam: trauma Right ankle injury. Right ankle pain. Seizure. Comparison: None Technique: AP, oblique and lateral views of the right ankle were obtained. Findings: No ankle fracture. Mild arthritis. Some osteopenia of the distal tibia and fibula. Etiology uncertain. Early-phase Paget's disease is not excluded. =====IMPRESSION:===== No fracture of the ankle. See right foot x-ray report. Osteopenia distal tibia and fibula. Possible Paget's disease. FOOT RT 3V Final Result by User, [id number] (04/29 1738) Examination: Right foot 3 views Exam date/time: 04/29/2017 5:04 PM Reason For Exam: trauma Right foot injury. Right foot pain. Comparison: None Technique: AP, oblique and lateral views of the right foot were obtained. Findings: Fracture base of the fifth metatarsal. No other fracture. Mild arthritis. Hammertoes. =====IMPRESSION:===== Fracture proximal fifth metatarsal. HEAD WO CON Final Result by User, [id number] (04/29 1737) EXAMINATION: CT of the head EXAM DATE/TIME: 04/29/2017 11:55 PM REASON FOR EXAM: sz Seizure. History of stroke. History of headache. COMPARISON: CT scan brain 03/23/2017. TECHNIQUE: Axial CT images of the brain are obtained from skull base through vertex without the use of IV contrast agent. Automated exposure control was utilized to reduce dose. FINDINGS: No acute hemorrhage or large territory infarct. Ventricles are normal in size and symmetric. There are minimal areas of scattered hypodensities in the periventricular deep white matter which are nonspecific but likely secondary to mild small vessel ischemic disease. There are no extra-axial fluid collections. There is no mass, mass effect, or midline shift. There is no depressed skull fracture. Visualized paranasal sinuses are well aerated. Mild mucosal thickening.. Mastoids are clear. Orbital contents are unremarkable. Old infarcts bilateral basal ganglia and right posterior parietal lobe. Left posterior scalp mass, likely sebaceous cyst. =====IMPRESSION:===== 1. Old infarcts. 2. No acute infarct or hemorrhage. 3. Motion artifact. 4. Sinus disease. 5. Left posterior scalp mass. Likely sebaceous cyst. Orthopedic Injury Date/Time: 04/29/2017 7:26 PM Performed by: MORENA PAULINO Authorized by: MORENA PAULINO Splint Application Date/Time: 04/29/2017 7:26 PM Performed by: MORENA PAULINO Authorized by: MORENA PAULINO Consent: Consent obtained: Verbal Consent given by: Patient Risks discussed: Numbness, pain and swelling Pre-procedure details: Sensation: Normal Procedure details: Laterality: Right Location: Foot Foot: R foot Splint type: Short leg Supplies: Ortho-Glass Post-procedure details: Pain: Improved Sensation: Normal Patient tolerance of procedure: Tolerated well, no immediate complications ED Course / Medical Decision Making Workup Notes Comment By Time CT negative old infarct negative acute fracture right proximal metatarsal neurovascular intact short leg splint remains hemodynamically stable no seizures interactive ready to go Morena Paulino MD 04/29 1949 MDM Number of Diagnoses or Management Options Diagnosis management comments: 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 compliant with Keppra no gross injuries paindorsal foot no ankle tenderness ck film check CT ck lab Clinical Impression Atypical seizure (Primary) Fracture, foot, right, closed, initial encounter Disposition: Discharge Morena Paulino MD 04/29/171955 ETING SERVICES MANAGER documented in this encounter Plan of Treatment Not on file documented as of this encounter Procedures Procedure Name Priority Date/Time Associated Diagnosis Comments SPLINT APPLICATION Routine 04/29/2017 7: 56 PM MARKETING SERVICES MANAGER ORTHOPEDIC INJURY TREATMENT Routine 04/29/2017 7:56 PM MARKETING SERVICES MANAGER COMPREHENSIVE METABOLIC PANEL STAT 04/29/2017 5:42 PM MARKETING SERVICES MANAGER CBC W/DIFF AUTOMATED STAT 04/29/2017 5:42 PM MARKETING SERVICES MANAGER SALICYLATE STAT 04/29/2017 5:42 PM MARKETING SERVICES MANAGER ETHANOL STAT 04/29/2017 5:42 PM MARKETING SERVICES MANAGER ACETAMINOPHEN STAT 04/29/2017 5:42 PM MARKETING SERVICES MANAGER XR FOOT RT 3V STAT 04/29/2017 5:28 PM MARKETING SERVICES MANAGER XR ANKLE RT M3V STAT 04/29/2017 5:[address] HEAD WO CON STAT 04/29/2017 5:24 PM MARKETING SERVICES MANAGER documented in this encounter Results * SPLINT APPLICATION (04/29/2017 7:56 PM MARKETING SERVICES MANAGER) Narrative Morena Paulino MD - 04/29/2017 7:56 PM MARKETING SERVICES MANAGER Morena Paulino MD ? 04/29/2017 ??7:56 PM Splint Application Date/Time: 04/29/2017 7:26 PM Performed by: MORENA PAULINO Authorized by: MORENA PAULINO Consent: ??Consent obtained: ??Verbal ??Consent given by: ??Patient ??Risks discussed: ??Numbness, pain and swelling Pre-procedure details: ??Sensation: ??Normal Procedure details: ??Laterality: ??Right ??Location: ??Foot ??Foot: ??R foot ??Splint type: ??Short leg ??Supplies: ??Ortho-Glass Post-procedure details: ??Pain: ??Improved ??Sensation: ??Normal ??Patient tolerance of procedure: ??Tolerated well, no immediate complications us Morena Paulino MD PROCEDURE/MINOR SURGIC AL ORDERABLES Final Result * ORTHOPEDIC INJURY TREATMENT (04/29/2017 7:56 PM MARKETING SERVICES MANAGER) Narrative Morena Paulino MD - 04/29/2017 7:56 PM MARKETING SERVICES MANAGER Morena Paulino MD ? 04/29/2017 ??7:56 PM Orthopedic Injury Date/Time: 04/29/2017 7:26 PM Performed by: MORENA PAULINO Authorized by: MORENA PAULINO Morena Paulino MD PROCEDURE/MINOR SURGIC AL ORDERABLES Final Result * (ABNORMAL) SALICYLATE (04/29/2017 5:42 PM MARKETING SERVICES MANAGER) SALICYLATES <1.7(L) 2.8 - 20.0 MG/DL 04/29/2017 6:15 PM MARKETING SERVICES MANAGER [facility] Comment: THERAPEUTIC: ?2.8-20.0 Toxic Level: ?>=30 04/29/2017 5:42 PM MARKETING SERVICES MANAGER Morena Paulino MD LABORATORY Final Result Performing Organization Address [facility] de Phone Number [facility] [address] [place] [address], * (ABNORMAL) ACETAMINOPHEN (04/29/2017 5:42 PM MARKETING SERVICES MANAGER) ACETAMINOPHEN S/P/B 2.9(L) 10.0 - 30.0 MCG/ML 04/29/2017 6:22 PM MARKETING SERVICES MANAGER [facility] Comment: ?THERAPEUTIC: 10-30 ?TOXIC: >200 04/29/2017 5:42 PM MARKETING SERVICES MANAGER Morena Paulino MD LABORATORY Final Result Performing Organization Address [facility] de Phone Number [facility] [address] [place] [address], * ETHANOL (04/29/2017 5:42 PM MARKETING SERVICES MANAGER) ALCOHOL S/P/B <0.003 <0.003 G/DL 04/29/2017 6:22 PM [facility] 04/29/2017 5:42 PM MARKETING SERVICES MANAGER Morena Paulino MD LABORATORY Final Result [facility] [address] [place] [address], * (ABNORMAL) COMPREHENSIVE METABOLIC PANEL (04/29/2017 5:42 PM MARKETING SERVICES MANAGER) [facility] GLUCOSE 80 70 - 99 MG/DL 04/29/2017 6:22 PM [facility] BUN 14 7 - 18 MG/DL 04/29/2017 6:22 PM [facility] CREATININE S/P/B 0.96 0.7 - 1.3 MG/DL 04/29/2017 6:22 PM [facility] SODIUM S/P/B 140 136 - 145 MMOL/L 04/29/2017 6:22 PM [facility] POTASSIUM S/P/B 3.6 3.5 - 5.1 MMOL/L 04/29/2017 6:22 PM [facility] CHLORIDE S/P/B 108 100 - 108 MMOL/L 04/29/2017 6:22 PM [facility] CO2 23.6 21 - 32 MMOL/L 04/29/2017 6:22 PM [facility] CALCIUM S/P/B 9.5 8.5 - 10.1 MG/DL 04/29/2017 6:22 PM [facility] BILIRUBIN TOTAL S/P/B 0.9 0.2 - 1.2 MG/DL 04/29/2017 6:22 PM [facility] TOTAL PROTEIN S/P/B 7.8 6.4 - 8.2 G/DL 04/29/2017 6:22 PM [facility] ALBUMIN S/P/B 4.4 3.4 - 5.0 G/DL 04/29/2017 6:22 PM [facility] AST 70(H) 15 - 37 U/L 04/29/2017 6:22 PM [facility] ALT 33 16 - 60 U/L 04/29/2017 6:22 PM [facility] ALKALINE PHOSPHATASE S/P/B 86 50 - 136 U/L 04/29/2017 6:22 PM [facility] ANION GAP 12.0 8 - 20 MMOL/L 04/29/2017 6:22 PM [facility] BUN CREATININE RATIO 14.6 6 - 26 04/29/2017 6:22 PM [facility] A/G RATIO 1.3 1.0 - 2.0 RATIO 04/29/2017 6:22 PM [facility] EGFR NON-AFR. AMER. >60 >60 ML/MIN/1.7 3 M2 04/29/2017 6:22 PM [facility] EGFR AFR. AMER. >60 >60 ML/MIN/1.7 3 M2 04/29/2017 6:22 PM [facility] Comment: NOTE: eGFR is not calculated for patients <18 years of age. This is an estimated GFR (CKD EPI) and should not be used for calculating drug doses. 04/29/2017 5:42 PM MARKETING SERVICES MANAGER Morena Paulino MD LABORATORY Final Result [facility] [address] [place] [address], [place] [phone] * (ABNORMAL) CBC W/DIFF AUTOMATED (04/29/2017 5:42 PM MARKETING SERVICES MANAGER) [facility] Signature WBC 13.8(H) 4.8 - 10.8 x10'3/uL 04/29/2017 6:00 PM [facility] RBC 4.43(L) 4.70 - 6.10 x10'6/uL 04/29/2017 6:00 PM [facility] HGB 14.2 14.0 - 18.0 G/DL 04/29/2017 6:00 PM [facility] HCT 42.0(L) 43.0 - 54.0 % 04/29/2017 6:00 PM [facility] MCV 94.8(H) 80.0 - 94.0 FL 04/29/2017 6:00 PM [facility] MCH 32.1(H) 27.0 - 31.0 PG 04/29/2017 6:00 PM [facility] MCHC 33.8 32.0 - 36.0 G/DL 04/29/2017 6:00 PM [facility] RDW 11.6 11.5 - 14.5 % 04/29/2017 6:00 PM [facility] PLT 199 130 - 400 x10'3/uL 04/29/2017 6:00 PM [facility] MPV 11.4 9.3 - 12.2 FL 04/29/2017 6:00 PM [facility] NEUTROPHILS % 77.3(H) 43.0 - 65.0 % 04/29/2017 6:00 PM [facility] LYMPHOCYTES % 14.4(L) 20.0 - 46.0 % 04/29/2017 6:00 PM [facility] MONOCYTES % 7.7 5.0 - 12.0 % 04/29/2017 6:00 PM [facility] EOSINOPHILS 0.0(L) 1.0 - 3.0 % 04/29/2017 6:00 PM MARKETING SERVICES MANAGER [facility] BASOPHILS 0.2 0.0 - 1.0 % 04/29/2017 6:00 PM MARKETING SERVICES MANAGER [facility] IMMATURE GRANS % 0.4 0.0 - 1.0 % 04/29/2017 6:00 PM MARKETING SERVICES MANAGER [facility] 04/29/2017 5:42 PM MARKETING SERVICES MANAGER Morena Paulino MD LABORATORY Final Result [facility] [address] [place] [address], [place] [phone] * XR FOOT RT 3V (04/29/2017 5:28 PM MARKETING SERVICES MANAGER) Anatomical Region Laterality Modality Foot Radiographic Cynhtia ging 04/29/2017 5:36 PM MARKETING SERVICES MANAGER Impressions 04/29/2017 5:37 PM MARKETING SERVICES MANAGER =====IMPRESSION:===== Fracture proximal fifth metatarsal. Narrative 04/29/2017 5:37 PM MARKETING SERVICES MANAGER Examination: Right foot 3 views Exam date/time: 04/29/2017 5:04 PM Reason For Exam: ??trauma ? Right foot injury. Right foot pain. Comparison: None Technique: AP, oblique and lateral views of the right foot were obtained. Findings: Fracture base of the fifth metatarsal. No other fracture. Mild arthritis. Hammertoes. Procedure Note Elton Lucio MD - 04/29/2017 Examination: Right foot 3 views Exam date/time: 04/29/2017 5:04 PM Reason For Exam: trauma Right foot injury. Right foot pain. Comparison: None Technique: AP, oblique and lateral views of the right foot wereobtained. Findings: Fracture base of the fifth metatarsal. No other fracture. Mild arthritis. Hammertoes. =====IMPRESSION:===== Fracture proximal fifth metatarsal. Morena Paulino MD GENERAL IMAGING Final Result * XR ANKLE RT M3V (04/29/2017 5:27 PM MARKETING SERVICES MANAGER) Anatomical Region Laterality Modality Ankle Radiographic Cynthia ging 04/29/2017 5:37 PM MARKETING SERVICES MANAGER Impressions 04/29/2017 5:39 PM MARKETING SERVICES MANAGER =====IMPRESSION:===== No fracture of the ankle. See right foot x-ray report. Osteopenia distal tibia and fibula. Possible Paget's disease. Narrative 04/29/2017 5:39 PM MARKETING SERVICES MANAGER Examination: Right ankle 3 views Exam date/time: 04/29/2017 5:04 PM Reason For Exam: ??trauma ? Right ankle injury. Right ankle pain. Seizure. Comparison: None Technique: AP, oblique and lateral views of the right ankle were obtained. Findings: No ankle fracture. Mild arthritis. Some osteopenia of the distal tibia and fibula. Etiology uncertain. Early-phase Paget's disease is not excluded. Procedure Note Elton Lucio MD - 04/29/2017 Examination: Right ankle 3 views Exam date/time: 04/29/2017 5:04 PM Reason For Exam: trauma Right ankle injury. Right ankle pain. Seizure. Comparison: None Technique: AP, oblique and lateral views of the right ankle wereobtained. Findings: No ankle fracture. Mild arthritis. Some osteopenia of the distaltibia and fibula. Etiology uncertain. Early-phase Paget's disease is notexcluded. =====IMPRESSION:===== No fracture of the ankle. See right foot x-ray report. Osteopenia distal tibia and fibula. Possible Paget's disease. Morena Paulino MD GENERAL IMAGING Final Result * CT HEAD WO CON (04/29/2017 5:24 PM MARKETING SERVICES MANAGER) Anatomical Region Laterality Modality Head Computed Tomogra phy 04/29/2017 5:33 PM MARKETING SERVICES MANAGER Impressions 04/29/2017 5:36 PM MARKETING SERVICES MANAGER =====IMPRESSION:===== 1. ??Old infarcts. 2. ??No acute infarct or hemorrhage. 3. ??Motion artifact. 4. ??Sinus disease. 5. ??Left posterior scalp mass. Likely sebaceous cyst. Narrative 04/29/2017 5:36 PM MARKETING SERVICES MANAGER EXAMINATION: CT of the head EXAM DATE/TIME: 04/29/2017 11:55 PM REASON FOR EXAM: ??sz ? Seizure. History of stroke. History of headache. COMPARISON: CT scan brain 03/23/2017. TECHNIQUE: Axial CT images of the brain are obtained from skull base through vertex without the use of IV contrast agent. Automated exposure control was utilized to reduce dose. FINDINGS: ??No acute hemorrhage or large territory infarct. ??Ventricles are normal in size and symmetric. ??There are minimal areas of scattered hypodensities in the periventricular deep white matter which are nonspecific but likely secondary to mild small vessel ischemic disease. There are no extra-axial fluid collections. ??There is no mass, mass effect, or midline shift. ??There is no depressed skull fracture. ??Visualized paranasal sinuses are well aerated. Mild mucosal thickening.. Mastoids are clear. Orbital contents are unremarkable. Old infarcts bilateral basal ganglia and right posterior parietal lobe. Left posterior scalp mass, likely sebaceous cyst. Procedure Note Elton Lucio MD - 04/29/2017 EXAMINATION: CT of the head EXAM DATE/TIME: 04/29/2017 11:55 PM REASON FOR EXAM: sz Seizure. History of stroke. History of headache. COMPARISON: CT scan brain 03/23/2017. TECHNIQUE: Axial CT images of the brain are obtained from skull basethrough vertex without the use of IV contrast agent. Automated exposure controlwas utilized to reduce dose. FINDINGS: No acute hemorrhage or large territory infarct. Ventriclesare normal in size and symmetric. There are minimal areas of scattered hypodensities in the periventricular deep white matter which arenonspecific but likely secondary to mild small vessel ischemic disease. There are noextra-axial fluid collections. There is no mass, mass effect, or midline shift.There is no depressed skull fracture. Visualized paranasal sinuses are wellaerated. Mild mucosal thickening.. Mastoids are clear. Orbital contents areunremarkable. Old infarcts bilateral basal ganglia and right posterior parietal lobe.Left posterior scalp mass, likely sebaceous cyst. =====IMPRESSION:===== 1. Old infarcts. 2. No acute infarct or hemorrhage. 3. Motion artifact. 4. Sinus disease. 5. Left posterior scalp mass. Likely sebaceous cyst. 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 Other convulsions Fracture, foot, right, closed, initial encounter Cognitive deficit due to old cerebrovascular accident (CVA) documented in this encounter Administered Medications Inactive Administered Medications - up to 3 most recent administrations Medication Order MAR Action Action Date Dose Rate Site acetaminophen (TYLENOL) 500 MG tablet 1 dose, Starting on Tue04/29/17 at 1913, Until Tue04/29/17 at 191, Created by cabinet override acetaminophen (TYLENOL) tablet 1,000 mg 1,000 mg, Oral, Once, 1 dose, On Tue04/29/17 at 1930, Maximum dose of acetaminophen is 4000 mg from all sources in 24 hours. Given 04/29/2017 7:17 PM MARKETING SERVICES MANAGER 1,000 mg levETIRAcetam (KEPPRA) tablet 1,500 mg 1,500 mg, Oral, Once, 1 dose, On Tue04/29/17 at 2044 Given 04/29/2017 8:28 PM MARKETING SERVICES MANAGER 1,500 mg lorazepam (ATIVAN) injection 2 mg 2 mg, Intravenous, PRN, Anxiety, prn x2 --- sz only, 2 doses, Starting on Tue04/29/17 at 1704, Until 04/30/17 at 0036, For IV use, further dilute with an equal volume of saline. sodium chloride 0.9% bolus infusion 1,000 mL 1,000 mL, Intravenous, Administer over 15 Minutes, Once, 1 dose, On Tue04/29/17 at 1730 New Bag 04/29/2017 5:44 PM MARKETING SERVICES MANAGER 1,000 mLs documented in this encounter Active and Recently Administered Medications Times are shown in MARKETING SERVICES MANAGER. Scheduled Medication Order 04/27/2017 04/28/2017 04/29/2017 acetaminophen (TYLENOL) tablet 1,000 mg (COMPLETED) 1,000 mg, Oral, Once, 1 dose, On Tue04/29/17 at 1930, Maximum dose of acetaminophen is 4000 mg from all sources in 24 hours. 1917 (Given - Provid er: Yary Brown RN) levETIRAcetam (KEPPRA) tablet 1,500 mg (COMPLETED) 1,500 mg, Oral, Once, 1 dose, On Tue04/29/17 at 2045 2027 (Given - Provid er: Yary Brown RN) sodium chloride 0.9% bolus infusion 1,000 mL (COMPLETED) 1,000 mL, Intravenous, Administer over 15 Minutes, Once, 1 dose, On Tue04/29/17 at 1730 1744 (New Bag - Prov ider: Yana Burton RN)1999 (Infusion Stop Time - Provider: Yary Brown RN) PRN Medication Order 04/27/2017 04/28/2017 04/29/2017 lorazepam (ATIVAN) injection 2 mg 2 mg, Intravenous, PRN, Anxiety, prn x2 --- sz only, 2 doses, Starting on Tue04/29/17 at 1704, Until 04/30/17 at 0036, For IV use, further dilute with an equal volume of saline. 2034 (Not Given - Pr ovider: Yary Brown RN - Reason: Other - Comment: NOT NECESSARY) documented in this encounter Care Teams Manager Surgery Relationship Specialty Start Date End Date Kayla Porras NP [address] [place] [address] PCP - General 06/25/16 09/27/18 Frank Toure MD [address] [place] [address] [employer] Provider Enrollment Specialist CARDIOVASCULAR DISEASE 05/30/16 documented as of this encounter
--- OUTSIDE RECORDS SUMMARY | 2024-06-08 05:53 | XMS_ITS | Encounter Summary ---
Author Organization [facility] Address [address] [facility] [place] [address] [place] [address] Care Team Providers Care Speeder Tender Name Role Phone Frank Toure MD Unavailable Kayla Porras NP Primary Care Provider [phone] Encounter Details Date Type Department Care Team (Late st Contact Info) Description 06/15/2017 Abstract [facility] Family Medicine - [address] [phone] Misael Maradiaga, [address] [place] [phone] Social History Tobacco Use Types Packs/Day Years [...] Sign Reading Time Taken Comments Blood Pressure 104/68 06/15/2017 8:24 AM ENERGY TRADING ANALYST Pulse 74 06/15/2017 8:24 AM ENERGY TRADING ANALYST Temperature - - Respiratory Rate - - Oxygen Saturation - - Inhaled Oxygen Concentration - - Weight 61.8 kg (136 lb 3 oz) 06/15/2017 8:24 AM ENERGY TRADING ANALYST Height 180.3 cm (5' 11 ) 06/15/2017 8:24 AM ENERGY TRADING ANALYST Body Mass Index 18.99 06/15/2017 8:24 AM ENERGY TRADING ANALYST documented in this encounter Functional Status documented as of this encounter Mental Status * Question Answer Entry Date Author Status Because of a physical, mental, or emotional condition, do you have serious difficulty concentrating, remembering, or making decisions? No 08/28/2017 2:38 PM CDT Loraine Staley RN A ctive documented in this encounter Progress Notes * Misael Chau Hiren, DO - 06/15/2017 9:00 AM CST Chief Complaint Pt presents for ER follow up from [facility] on 06/06/17. Pt when to the ER for seizure. Pt states after visit pt has been doing well with no seizures. History of Present Illness Pt woke up on up on floor and had abrasion on his head He does not recall a SZ but thinks he had one he denies any etoh usage He went to ER and had imaging done No meds were changed He is on keppra 1,500 mg po bid [place], he was told to call his neurologist He already had f/u appt with his neurologist next month so did not call He has not had any seizures since discharge last ETOH use 2 years ago last crack use 2 years ago abrasion has healed Review of systems General: denies any fevers, [...] History 1. History of Colonoscopy ?? 11/22/16: [facility] (3 small polyps removed) 2. History of Esophagogastroduodenoscopy ?? 11/22/16: [facility] (antral erosion, mild duodenal bulb erythema) 3. [...] 500 MG CAPS; TAKE CAPSULE PRN; Therapy: (Recorded:[id number]) to Recorded 2. Acetaminophen-Codeine #3 300-30 MG Oral Tablet; Therapy: (Recorded:[id number]) to Recorded 3. AmLODIPine Besylate 5 MG Oral Tablet; TAKE 1 TABLET DAILY DIRECTED Requested for: 25Mar2017; Last Rx:[id number] Ordered 4. Aspirin 81 MG Oral Tablet Delayed Release; TAKE 1 TABLET DAILY DIRECTED; Therapy: 28Jun2016 to (Evaluate:07Jun2017) Requested for: 09Nov2016; Last Rx:[id number] Ordered 5. Atorvastatin Calcium 40 MG Oral Tablet; TAKE 1 TABLET ONCE EVERY DAY AT BEDTIME (TO LOWER CHOLESTEROL); Therapy: 27Rug2881 to (Evaluate:07Jun2017) Requested for: 09Nov2016; Last Rx:09Nov2016 Ordered 6. BusPIRone HCl - 10 MG Oral Tablet; Therapy: 17Nov2016 to Recorded 7. Gabapentin 300 MG Oral Capsule; TK 1 C PO BID; Therapy: 01Mar2017 to Recorded 8. LevETIRAcetam 1000 MG Oral Tablet; TK 1 T PO BID; Therapy: 29Aug2016 to Recorded 9. LevETIRAcetam 500 MG Oral Tablet; TAKE 3 TABLETS TWICE DAILY; Therapy: 20Tuj6492 to (Evaluate:94Pgu9481) Requested for: 28Tff6274; Last Rx:[id number] Ordered 10. Metoprolol Succinate ER 25 MG Oral Tablet Extended Release 24 Hour; TAKE 1 TABLET DAILY; Therapy: 82Efa0226 to (Evaluate:09Aug2017) Recorded 11. Omeprazole 20 MG Oral Capsule Delayed Release; TAKE 1 CAPSULE DAILY EVERY MORNING BEFORE BREAKFAST; Therapy: 47Emr3377 to (Evaluate:31May2017) Requested for: 16Aye4250; Last Rx:[id number] Ordered 12. Tamsulosin HCl - 0.4 MG Oral Capsule; Take 1 cap daily Requested for: 19Nov2016; Last Rx:19Nov2016 Ordered 13. Vitamin B-1 100 MG Oral Tablet; TAKE 1 TABLET BY MOUTH DAILY DIRECTED; Therapy: 37Eiw7670 to (Evaluate:25Jun2017) Requested for: 55Oge3835; Last Rx:[id number] Ordered 14. Vitamin B1 100 MG TABS; TAKE 1 TABLET DAILY DIRECTED; Therapy: 60Mbs9307 to (Evaluate:70Mlu9032) Requested for: 16Uki9020; Last Rx:[id number] Ordered Allergies 1. No Known Drug Allergies Immunizations Influenza --- Series1: 23-Jun-2016 PPSV --- Series1: 13-Aug-2015 Tdap --- Series1: 23-Mar-2017 Vitals Recorded: 15Jun2017 08:24AM Temperature 96.7 F Heart Rate 74 Respiration 16 Systolic 104 Diastolic 68 Height 5 ft 11 in Weight 136 lb 3 oz BMI Calculated 18.99 BSA Calculated 1.79 Assessment 1. Seizures (780.39) (R56.9) Discussion/Summary Possible breakthrough SZ last week currently on keppra 1.5g po bid advised to cont this med advised he call his neurologist today to let them know and to see if meds need to be adjusted pt states he will advised on cont abstinence of etoh and drugs flu shot today Signatures Electronically signed by : Misael Maradiaga D.O.; Jun 15 2017 8:48AM ENERGY TRADING ANALYST (Author) documented in this encounter Plan of Treatment Not on file documented as of this encounter Visit Diagnoses Not on filedocumented in this encounter Care Teams Speeder Tender Relationship Specialty Start Date End [place] [address] PCP - General 06/25/16 09/27/18 Frank Toure MD [address] [place] [address] [employer] Ply Cutter CARDIOVASCULAR DISEASE 05/30/16 documented as of this encounter
--- OUTSIDE RECORDS SUMMARY | 2024-06-08 05:53 | XMS_ITS | Encounter Summary ---
Author Organization [facility] Address [address] [facility]. [place], [place] [address] [place] [address] Care Team Providers Care Ccna Name Role Phone Frank Toure MD Unavailable Kayla Porras NP Primary Care Provider [phone] Encounter Details Date Type Department Care Team (Latest Contact Info) Description 06/06/2017 Abstract [facility] Misael Maradiaga, DO [address] [phone] Social History Tobacco Use Types [...] on filedocumented in this encounter Care Teams Ccna Relationship Specialty Start Date End Date Kayla Porras NP [address] [place] [address] PCP - General 06/25/16 09/27/18 Frank Toure MD [address] [place] [address] [employer] Transportation Supervisor CARDIOVASCULAR DISEASE 05/30/16 documented as of this encounter
--- OUTSIDE RECORDS SUMMARY | 2024-06-08 05:53 | XMS_ITS | Encounter Summary ---
Author Organization [facility] Address [address] [facility] [place] [address] [place] [address] Care Team Providers Care Out And Out Cigar Maker Hand Name Role Phone Dany Toure MD Unavailable Kayla Porras NP Primary Care Provider [phone] Encounter Details Date Type Department Care Team (Late st Contact Info) Description 11/17/2016 COMMUNITY RELATIONS REP ONLY [facility] [address] [place] [address] Dany Toure MD [address] [place] [address] Social History Tobacco Use Types Packs/Day Years Used Date Smoking Tobacco: Never Assessed Sex and Gender Information Value Date Recorded Sex Assigned at Not on file Legal Sex Male 10:23 PM CDT Gender Identity Not on file Sexual Orientation Not on file documented as of this encounter Progress Notes * Dany Toure MD - 11/17/2016 1:29 PM CDT BI TABOR MD: Acct: [id number] Admit/Service Date: 11/13/16 Discharge Date: 11/17/16 : 1960 Pt Type: DIS IN Sex: M Ord Site: [facility] CHART DOCUMENT SUBJECTIVE: Mr. Tabor is a 56-year-old gentleman who was admitted after a seizure episode. Had rhabdomyolysis with marked elevation of CPK and the troponins are normal. He was evaluated with a pharmacologic stress test because of history of hypertension and history of previous stroke. The patient's ejection fraction was normal and there was no history of any ischemia. There was suggestion of an infarct in the septum and apex. The patient has been doing fairly well except that with activity his heart rate jumps up. He has been noted to have sinus tachycardia with heart rate up to 160 when he is ambulating in the halls. He denies any symptoms. OBJECTIVE: His blood pressure is normal. LABORATORY WORK: Shows his hemoglobin is 14.8, hematocrit 42.7. His sodium is 144, potassium 3.2, BUN is 10, and creatinine 0.6. His CK is gradually coming down and he was started on Keppra for his seizures. PLAN: Recommend switching him from the amlodipine to a beta elliott. Would start him on atenolol 25 mg a day which may help control his blood pressure and also the sinus tachycardia that he is noticing with physical activity, which could be partly due to physical deconditioning. I hope with the change to atenolol, his tachycardia will be better controlled and he will feel better. Electronically Signed By: DANY TOURE M.D. 11/18/2016 10:10 A DANY TOURE M.D. P #[id number] P/aramis cc: Malena RICHARDSON M.D. PANDURANGA KINI, M.D. ROOP LAL, M.D. ANTHONY L. TRUONG, D.O. documented in this encounter Plan of Treatment Not on file documented as of this encounter Visit Diagnoses Not on filedocumented in this encounter Care Teams Out And Out Cigar Maker Hand Relationship Specialty Start Date End Date Kayla [place] [address] PCP - General 06/25/16 09/27/18 Dany Toure MD [address] [place] [address] [employer] Tablet Tester CARDIOVASCULAR DISEASE 05/30/16 documented as of this encounter
--- OUTSIDE RECORDS SUMMARY | 2024-06-08 05:53 | XMS_ITS | Encounter Summary ---
Author Organization [facility] Address [address] [facility]. [place], [place] [address] [place] [address] Care Team Providers Care Sales Development Associate Name Role Phone Frank Toure MD Unavailable Kayla Porras NP Primary Care Provider [phone] Encounter Details Date Type Department Care Team (Latest Contact Info) Description 09/22/2017 Abstract [facility] Misael Maradiaga, DO [address] [address] Social History Tobacco Use Types [...] filedocumented in this encounter Care Teams Sales Development Associate Relationship Specialty Start Date End Date Kayla Porras [place] [address] PCP - General 06/25/16 09/27/18 Frank Toure MD [address] [place] [address] [employer] Specialist CARDIOVASCULAR DISEASE 05/30/16 documented as of this encounter
--- OUTSIDE RECORDS SUMMARY | 2024-06-08 05:53 | XMS_ITS | Encounter Summary ---
Author Organization [facility] Address [address] [facility] [place] [address] [place] [address] Care Team Providers Care Straight Edger Name Role Phone Frank Toure MD Unavailable Kayla Porras NP Primary Care Provider [phone] Encounter Details Date Type Department Care Team (Late st Contact Info) Description 09/02/2017 Abstract [facility] Family Medicine - [address] [phone] Misael Maradiaga, [address] [place] [phone] Social History Tobacco Use Types Packs/Day Years [...] Sign Reading Time Taken Comments Blood Pressure 133/81 09/02/2017 1:52 PM CDT Pulse 81 09/02/2017 1:52 PM CDT Temperature - - Respiratory Rate - - Oxygen Saturation - - Inhaled Oxygen Concentration - - Weight 63.5 kg (140 lb) 09/02/2017 1:52 PM CDT Height - - Body Mass Index 19.53 06/15/2017 8:24 AM SAFETY NET MAKER documented in this encounter Functional Status * [...] encounter Progress Notes * Misael Maradiaga, - 09/02/2017 2:00 PM CDT Chief Complaint 57 year old male here for follow up visit on ER for seizure activity. History of Present Illness He had a breakthrough SZ his CK levels were elevated statin was stopped He is now on keppra 2000 po bid His neurologist is Dr Hancock Imaging was done, showed 2cm mass c/w sebaceous cyst but cannot r/o malignancy otherwise no acute issues he states he has had posterior scalp cyst for the past 1 year does not cause any pain he denies any muscle aches Review of systems General: denies any fevers, chills. Gastrointestinal: Patient denies any nausea, vomiting, diarrhea or constipation Cardiovascular: Patient denies Chest pain, shortness of breath. Physical Exam General: Well-developed, well-nourished, in no acute distress. Eyes: Conjunctiva and lids: no swelling, erythema or discharge Head: posterior head is 2cm palpable soft cystic mass Lungs: Clear to auscultation bilaterally without wheezing, rhonchi or crackles. No increase work ofbreathing or signs of respiratory distress Heart: Regular rate and rhythm without murmurs, clicks or bruits. Extremities: No clubbing, cyanosis, or edema noted. [...] 500 MG CAPS; TAKE CAPSULE PRN; Therapy: (Recorded:[id number]) to Recorded 2. AmLODIPine Besylate 5 MG Oral Tablet; TAKE 1 TABLET DAILY DIRECTED Requested for: 25Mar2017; Last Rx:25Mar2017 Ordered 3. Aspirin 81 MG Oral Tablet Delayed Release; TAKE 1 TABLET DAILY DIRECTED; Therapy: 28Jun2016 to (Evaluate:07Jun2017) Requested for: 09Nov2016; Last Rx:09Nov2016 Ordered 4. Atorvastatin Calcium 40 MG Oral Tablet; TAKE 1 TABLET ONCE EVERY DAY AT BEDTIME (TO LOWER CHOLESTEROL); Therapy: 26Pyd8699 to (Evaluate:07Jun2017) Requested for: 09Nov2016; Last Rx:09Nov2016 Ordered 5. BusPIRone HCl - 10 MG Oral Tablet; Therapy: 17Nov2016 to Recorded 6. Gabapentin 300 MG Oral Capsule; TK 1 C PO BID; Therapy: 01Mar2017 to Recorded 7. LevETIRAcetam 1000 MG Oral Tablet; TK 1 T PO BID; Therapy: 29Aug2016 to Recorded 8. LevETIRAcetam 500 MG Oral Tablet; TAKE 3 TABLETS TWICE DAILY; Therapy: 62Orn9982 to (Evaluate:05Nyg8075) Requested for: 55Xyr1447; Last Rx:[id number] Ordered 9. Metoprolol Succinate ER 25 MG Oral Tablet Extended Release 24 Hour; TAKE 1 TABLET DAILY; Therapy: 80Kyz2030 to (Evaluate:09Aug2017) Recorded 10. Tamsulosin HCl - 0.4 MG Oral Capsule; Take 1 cap daily Requested for: 19Nov2016; Last Rx:19Nov2016 Ordered 11. Vitamin B-1 100 MG Oral Tablet; TAKE 1 TABLET BY MOUTH DAILY DIRECTED; Therapy: 82Sxe6217 to (Evaluate:16Sep2017) Requested for: 17Aug2017; Last Rx:17Aug2017 Ordered 12. Vitamin B1 100 MG TABS; TAKE 1 TABLET DAILY DIRECTED; Therapy: 01Lub2629 to (Evaluate:96Yla3308) Requested for: 67Heh2290; Last Rx:30Zbt2483 Ordered Allergies 1. No Known Drug Allergies Immunizations Influenza --- Series1: 23-Jun-2016; Series2: 15-Jun-2017 PPSV --- Series1: 13-Aug-2015 Tdap --- Series1: 23-Mar-2017 Vitals Recorded: 02Sep2017 01:52PM Temperature 98.7 F Heart Rate 81 Respiration 16 Systolic 133 Diastolic 81 O2 Saturation 100 Weight 140 lb BMI Calculated 19.53 BSA Calculated 1.81 Assessment 1. Seizure (780.39) (R56.9) 2. Scalp cyst (706.2) (L72.9) Plan Hyperlipidemia 1. Atorvastatin Calcium 40 MG Oral Tablet Rx By: Misael Maradiaga; Dispense: 30 Days ; #:1 X 30 Tablet Box; Refill: 6; For: Hyperlipidemia; RACHEL = N; Sent To: [facility] [place] [address] Scalp cyst 2. General Surgery Referral Outpatient 2cm posterior scalp cyst, recent imaging cannot r/o malignancy, please eval and tx Status: Need Information - Financial Authorization Requested for: 02Sep2017 Ordered; For: Scalp cyst; Ordered By: Misael Maradiaga Performed: Due: 16Sep2017 Seizure 3. Creatine Kinase ( CK ) ( CPK ); Status:Hold For - Manual Activation; Requested for:02Sep2017; Perform:[facility]; Due:60Gml9931;Ordered; For:Seizure; Ordered By:Misael Maradiaga; Seizures 4. LevETIRAcetam 500 MG Oral Tablet Rx By: Misael Maradiaga; Dispense: 7 Days ; #:42 Tablet; Refill: 0; For: Seizures; RACHEL = N; Transmitted To: [facility] Discussion/Summary cont keppra at 2000 po bid as instructed by neuro pt to call neuro for f/u appt on Tuesday I will recheck CK levels Signatures Electronically signed by : Misael Maradiaga D.O.; Sep 02 2017 2:10PM SAFETY NET MAKER (Author) documented in this encounter Plan of Treatment Not on file documented as of this encounter Procedures Procedure Name Priority Date/Time Associated Diagnosis Comments CK (CPK) Routine 09/02/2017 2:17 PM CDT documented in this encounter Results * CK (CPK) (09/02/2017 2:17 PM CDT) CPK 204 35 - 232 U/L [facility] TO EPIC CONVERSION 09/02/2017 2:17 PM CDT 09/02/2017 2:17 PM CDT Narrative [facility] TO EP[facility] CONVERSION - 09/02/2017 9:53 PM CDT Result Communication: No patient communication needed at this time Misael Maradiaga DO LABORATORY Final Result [facility] TO EPIC CONVERSION documented in this encounter Visit Diagnoses Not on filedocumented in this encounter Care Teams Straight Edger Relationship Specialty Start Date End Date Kay[place] [address] PCP - General 06/25/16 09/27/18 Frank Toure MD [address] [place] [address] [place] Director Of Event Sales CARDIOVASCULAR DISEASE 05/30/16 documented as of this encounter
--- OUTSIDE RECORDS SUMMARY | 2024-06-08 05:53 | XMS_ITS | Encounter Summary ---
Author Organization [facility] Address [address] [facility] [place] [address] [place] [address] Care Team Providers Care Steeler Name Role Phone Frank Toure MD Unavailable Kayla Porras NP Primary Care Provider [phone] Encounter Details Date Type Department Care Team (Late st Contact Info) Description 11/25/2016 Abstract [facility] [place] [address] Misael Maradiaga DO [address] [place] [address] Social History Tobacco Use Types Packs/Day Years [...] CDT) CPK 158 39 - 308 U/L 11/25/2016 9:13 PM CDT [facility] SERUM OR PLASMA SPECIMEN / Unknown 11/25/2016 2:56 PM CDT 11/25/2016 7:50 PM CDT us Generic Conversion Md [facility] Final R esult [facility] [address] [place] [address], documented in this encounter Visit Diagnoses Diagnosis Abnormal levels of other serum enzymes documented in this encounter Care Teams Steeler Relationship Specialty Start Date End Date Kayla Porras NP [address] [place] [address] [place] [address] PCP - General 06/25/16 09/27/18 Frank Toure MD [address] [place] [address] [place] Dough Cutting Machine Operator CARDIOVASCULAR DISEASE 05/30/16 documented as of this encounter
--- OUTSIDE RECORDS SUMMARY | 2024-06-08 05:53 | XMS_ITS | Encounter Summary ---
Author Organization [facility] Address [address] [facility] [place] [address] [place] [address] Care Team Providers Care Openstack Cloud Consulting Architect Name Role Phone Frank Toure MD Unavailable Kayla Porras NP Primary Care Provider [phone] Encounter Details Date Type Department Care Team (Late st Contact Info) Description 11/22/2016 Abstract [facility] [place] [address] Mark Devine MD [address] [facility] [address] [place] [address] Social History Tobacco Use Types Packs/Day Years Used Date Smoking Tobacco: Never Assessed Sex and Gender Information Value Date Recorded Sex Assigned at Not on file Legal Sex Male 10:23 PM CDT Gender Identity Not on file Sexual Orientation Not on file documented as of this encounter Plan of Treatment Not on file documented as of this encounter Visit Diagnoses Diagnosis Encounter for screening for malignant neoplasm of colon Special screening for malignant neoplasms, colon documented in this encounter Care Teams Openstack Cloud Consulting Architect Relationship Specialty Start Date End Date Kay[place] [address] PCP - General 06/25/16 09/27/18 Frank Toure MD [address] [place] [address] [place] Ocular Care Aide CARDIOVASCULAR DISEASE 05/30/16 documented as of this encounter
--- OUTSIDE RECORDS SUMMARY | 2024-06-08 05:53 | XMS_ITS | Encounter Summary ---
Author Organization [facility] Address [address] [facility] [place] [address] [place] [address] Care Team Providers Care Purchasing Manager/Sales Name Role Phone Frank Toure MD Unavailable Kayla Porras NP Primary Care Provider [phone] Encounter Details Date Type Department Care Team (Latest Contact Info) Description 02/25/2017 Abstract [facility] Social History Tobacco [...] on filedocumented in this encounter Care Teams Purchasing Manager/Sales Relationship Specialty Start Date End Date [place] [address] PCP - General 06/25/16 09/27/18 Frank Toure MD [address] [place] [address] [place] Inside Sales Person CARDIOVASCULAR DISEASE 05/30/16 documented as of this encounter
--- OUTSIDE RECORDS SUMMARY | 2024-06-08 05:53 | XMS_ITS | Encounter Summary ---
Author Organization [facility] Address [address] [facility] [place] [address] [place] [address] Care Team Providers Care Retail Sales Director Name Role Phone Frank Toure MD Unavailable Kayla Porras NP Primary Care Provider [phone] Encounter Details Date Type Department Care Team (Late st Contact Info) Description 02/07/2017 Abstract [facility] Family Medicine - [address] [phone] Misael Maradiaga, [address] [place] [phone] Social History Tobacco Use Types Packs/Day Years Used Date Smoking Tobacco: Never Assessed Sex and Gender Information Value Date Recorded Sex Assigned at Not on file Legal Sex Male 10:23 PM CDT Gender Identity Not on file Sexual Orientation Not on file documented as of this encounter Last Filed Vital Signs Vital Sign Reading Time Taken Comments Blood Pressure 128/79 02/07/2017 1:07 PM CDT Pulse 90 02/07/2017 1:07 PM CDT Temperature - - Respiratory Rate - - Oxygen Saturation - - Inhaled Oxygen Concentration - - Weight 62.1 kg (137 lb) 02/07/2017 1:07 PM CDT Height - - Body Mass Index 19.11 10/22/2016 10:52 AM CDT documented in this encounter Functional Status documented as of this encounter Mental Status * Question Answer Entry Date Author Status Because of a physical, mental, or emotional condition, do you have serious difficulty concentrating, remembering, or making decisions? No 08/28/2017 2:38 PM CDT Loraine Staley RN A ctive documented in this encounter Progress Notes * Misael Maradiaga, DO - 02/07/2017 1:20 PM CDT History of Present Illness HPI Free Text: 57M here for f/uu SZ Now seeing Dr Carmen from neuro, and he continued keppra at 1000mg bid He is tolerating his meds his next appt with them is next month he has not had any SZ since the Spring and he has been compliant with his meds He has hx of etoh abuse, last use of liquor was 1 year ago Last use of beer was 6 mos ago He was previously on thiamine from his prior MD He ran out of this vitamin 2 days ago and requests refill Review of systems General: denies any fevers, [...] grossly intact. Psych: Normal mood, normal affect Review of Systems Constitutional: Normal. ENT: normal. [...] 1. History of Colonoscopy ?? 11/22/16: [facility] (3 small polyps removed) 2. History of Esophagogastroduodenoscopy ?? 11/22/16: [facility] (antral erosion, mild duodenal bulb erythema) [...] 500 MG CAPS; TAKE CAPSULE PRN; Therapy: (Recorded:[id number]) to Recorded 2. AmLODIPine Besylate 10 MG Oral Tablet; TAKE 1 TABLET DAILY FOR BLOOD PRESSURE; Therapy: (Recorded:[id number]) to Requested for: 79Lku5110 Recorded 3. Aspirin 81 MG Oral Tablet Delayed Release; TAKE 1 TABLET DAILY DIRECTED; Therapy: 28Jun2016 to (Evaluate:07Jun2017) Requested for: 09Nov2016; Last Rx:09Nov2016 Ordered 4. Atenolol 25 MG Oral Tablet; TK 1 T PO QD; Therapy: 17Nov2016 to Recorded 5. Atorvastatin Calcium 40 MG Oral Tablet; TAKE 1 TABLET ONCE EVERY DAY AT BEDTIME (TO LOWER CHOLESTEROL); Therapy: 30Sep2016 to (Evaluate:07Jun2017) Requested for: 09Nov2016; Last Rx:09Nov2016 Ordered 6. BusPIRone HCl - 10 MG Oral Tablet; Therapy: 17Nov2016 to Recorded 7. LevETIRAcetam 1000 MG Oral Tablet; TK 1 T PO BID; Therapy: 29Aug2016 to Recorded 8. Omeprazole 20 MG Oral Capsule Delayed Release; TAKE 1 CAPSULE DAILY EVERY MORNING BEFORE BREAKFAST; Therapy: 02Dec2016 to (Evaluate:31May2017) Requested for: 02Dec2016; Last Rx:02Dec2016 Ordered 9. Tamsulosin HCl - 0.4 MG Oral Capsule; Take 1 cap daily Requested for: 19Nov2016; Last Rx:19Nov2016 Ordered Allergies 1. No Known Drug Allergies Immunizations Influenza --- Series1: 23Jun2016 Pneumococcal --- Series1: 13Aug2015 Vitals Recorded: 07Feb2017 01:07PM Heart Rate 90 Systolic 128 Diastolic 79 Weight 137 lb BMI Calculated 19.11 BSA Calculated 1.8 Physical Exam Constitutional General appearance: No acute [...] foul smell. Psychiatric Mood and affect: Normal. Counseling The patient was counseled regarding instructions for management, impressions and importance of compliance with treatment. total time of encounter was 25 minutes and 20 minutes was spent counseling. Assessment 1. Hypertension (401.9) (I10) 2. Seizures (780.39) (R56.9) 3. Alcohol abuse (305.00) (F10.10) Plan SocHx: Alcohol abuse, Seizures 1. Vitamin B1 100 MG Oral Tablet; TAKE 1 TABLET DAILY DIRECTED Rx By: Misael Maradiaga; Dispense: 30 Days ; #:30 Tablet; Refill: 2; For: SocHx: Alcohol abuse, Seizures; RACHEL = N; Sent To: [facility] [id number] Discussion/Summary He is doing better now HTN is controlled He is aware of all his medications I will refill his thiamine Cont current meds He has been SZ free cont current meds f/u with neuro next month f/u with me in 6 mos Signatures Electronically signed by : Misael Maradiaga D.O.; Feb 07 2017 1:23PM BLUEPRINT CUTTER (Author) documented in this encounter Plan of Treatment Not on file documented as of this encounter Visit Diagnoses Not on filedocumented in this encounter Care Teams Retail Sales Director Relationship Specialty Start Date End Date Kayla [place] [address] PCP - General 06/25/16 09/27/18 Frank Toure MD [address] [place] [address] [place] Director Search Marketing Strategies CARDIOVASCULAR DISEASE 05/30/16 documented as of this encounter
--- OUTSIDE RECORDS SUMMARY | 2024-06-08 05:53 | XMS_ITS | Encounter Summary ---
Author Organization [facility] Address [address] [facility]. [place], [place] [address] [place] [address] Care Team Providers Care Slip Cover Estimator Name Role Phone Frank Toure MD Unavailable Kayla Porras NP Primary Care Provider [phone] Encounter Details Date Type Department Care Team (Latest Contact Info) Description 05/26/2017 Abstract [facility] Misael Maradiaga, DO [address] [phone] Social History Tobacco Use [...] on filedocumented in this encounter Care Teams Slip Cover Estimator Relationship Specialty Start Date End Date Kayla Porras NP [address] [place] [address] PCP - General 06/25/16 09/27/18 Frank Toure MD [address] [place] [address] Department Dispatcher CARDIOVASCULAR DISEASE 05/30/16 documented as of this encounter
--- OUTSIDE RECORDS SUMMARY | 2024-06-08 05:54 | XMS_ITS | Encounter Summary ---
Author Organization [facility] Address [address] [facility] [place] [address] [place] [address] Care Team Providers Care Pipe Recovery Specialist Name Role Phone Frank Toure MD Unavailable Kayla Porras NP Primary Care Provider [phone] Encounter Details Date Type Department Care Team (Latest Contact Info) Description 09/25/2016 Abstract [facility] Social History Tobacco Use [...] filedocumented in this encounter Care Teams Pipe Recovery Specialist Relationship Specialty Start Date End Date Kayla Porras [place] [address] PCP - General 06/25/16 09/27/18 Frank Toure MD [address] [place] [address] [employer] Cutter Apprentice Hand CARDIOVASCULAR DISEASE 05/30/16 documented as of this encounter
--- OUTSIDE RECORDS SUMMARY | 2024-06-08 05:54 | XMS_ITS | Encounter Summary ---
Author Organization [facility] Address [address] [facility]. [place], [place] [address] [place] [address] Care Team Providers Care Chemical Research Engineer Name Role Phone Misael Maradiaga DO Primary Care Provider [phone] Frank Toure MD Unavailable Vern, Kayla CONTINUOUS PICKLING LINE PICKLER HELPER Primary Care Provider [phone] Vern, Kayla CONTINUOUS PICKLING LINE PICKLER HELPER Primary Care Provider [phone] Vern, Kayla CONTINUOUS PICKLING LINE PICKLER HELPER Primary Care Provider [phone] Vern, Kayla CONTINUOUS PICKLING LINE PICKLER HELPER Primary Care Provider [phone] Misael Maradiaga DO Primary Care Provider [phone] Burke Restrepo MD Primary Care Provider + [phone] Encounter Details Date Type Department Care Team (Latest Contact Info) Description 09/02/2015 Abstract [facility] Social History Tobacco Use Types [...] Notes * Generic Conversion MD Quin - 09/02/2015 1:23 PM CDT Message Recorded as Task Date: 09/02/2015 11:37 AM, Created By: Philly Truong Task Name: Medical Complaint Callback Assigned To: [facility]-Nursing Team Regarding Patient: Bi Tabor, Status: Active Comment: Philly Truong - 02 Sep 2015 11:37 AM TASK CREATED Merly with [facility] called, she is out seeing pt right now. He is complaining of a cough. She hears wheezing in all 4 lung spaces. No SOB, no fevers. Coughing up whitish sputum. No head congestion or other symptoms. No swelling in extremities. Pulse ox is 99%. They will be going out again in 2 or 3 days. Didn't know if he could take anything OTC for cough? Or if you had any other recommendations? Thanks! The nurse can be reached at [phone]. /Nas Perez - 02 Sep 2015 12:15 PM TASK EDITED How long have symptoms been present? Pt could take Robitussin-DM OTC or we can call benzonatate 200mg TID into pharmacy. If he is not getting better, we may need to treat him with abx or prednisone by end of week. Have home nurse give us an update on Tue or . Thanks! Message: Pt has only had symptoms for a couple of days. I tried calling the nurse back, but had thewrong number. I did call and speak with pt and advised that we sent 2 rx's out for him. Advised to be sure to let us know if he starts feeling worse. He agrees /mary katet Plan 1. Benzonatate 200 MG Oral Capsule; TAKE 1 CAPSULE 3 times daily as needed for cough Rx By: Nas Higuera; Dispense: 10 Days ; #:30 Capsule; Refill: 0; For: Health Maintenance; RACHEL = N; Verified Transmission to [facility]; Last Updated By: ChristianoExpreem; 09/02/2015 1:26:43 PM 2. Robitussin DM 100-10 MG/5ML Oral Syrup; TAKE 5 ML EVERY 4 TO 6 HOURS NEEDED Rx By: Nas Higuera; Dispense: 4 Days ; #:120 ML; Refill: 0; For: Health Maintenance; RACHEL = N; Verified Transmission to [facility]; Last Updated By: Christiano Echovox; 09/02/2015 1:26:44 PM Signatures Electronically signed by : Philly Truong R.N.; Sep 02 2015 1:28PM K9 HANDLER (Author) documented in this encounter Plan of Treatment Not on file documented as of this encounter Visit Diagnoses Not on filedocumented in this encounter Care Teams Chemical Research Engineer Relationship Specialty Start Date End Date Misael Maradiaga DO PCP - General FAMILY PRACTICE 05/30/16 06/22/16 Kayla Porras NP [address] [facility] [place] [id number] PCP - General 06/25/16 09/27/18 Kayla Porras NP [address] [facility], [place] [id number] PCP - General 06/24/16 06/24/16 Kayla Porras NP [address] [facility], [place] [id number] PCP - General 06/23/16 06/23/16 Kayla Porras NP [address] [facility] [place] [address] PCP - General 02/11/16 05/29/16 Misael Maradiaga DO PCP - General 02/02/16 02/10/16 Burke Restrepo MD [address] [facility] [place] [address] PCP - General 05/15/15 02/01/16 Frank Toure MD [address] [place] [address] [employer] Computer Programming Professor CARDIOVASCULAR DISEASE 05/30/16 documented as of this encounter
--- OUTSIDE RECORDS SUMMARY | 2024-06-08 05:54 | XMS_ITS | Encounter Summary ---
Author Organization [facility] Address [address] [facility]. [place], [place] [address] [place] [address] Care Team Providers Care Concrete Block Maker Name Role Phone Misael Maradiaga DO Primary Care Provider + [phone] Frank Toure MD Unavailable Vern, Kayla JOY OPERATOR HELPER Primary Care Provider [phone] Vern, Kayla JOY OPERATOR HELPER Primary Care Provider [phone] Vern, Kayla JOY OPERATOR HELPER Primary Care Provider [phone] Vern, Kayla JOY OPERATOR HELPER Primary Care Provider [phone] Misael Maradiaga DO Primary Care Provider + [phone] Burke Restrepo MD Primary Care Provider + [phone] Encounter Details Date Type Department Care Team (Latest Contact Info) Description 09/08/2015 Abstract [facility] Misael Maradiaga DO [address] [phone] Social History Tobacco Use Types Packs/Day Years [...] on filedocumented in this encounter Care Teams Concrete Block Maker Relationship Specialty Start Date End Date Misael Maradiaga DO PCP - General FAMILY PRACTICE 05/30/16 06/22/16 Kayla Porras NP [address] [place] [address] PCP - General 06/25/16 09/27/18 Kayla Porras NP [address] [place] [address] PCP - General 06/24/16 06/24/16 Kayla Porras NP [address] [facility] [id number] PCP - General 06/23/16 06/23/16 Kayla Porras NP [address] [place] [address] PCP - General 02/11/16 05/29/16 Misael Maradiaga DO PCP - General 02/02/16 02/10/16 Burke Restrepo MD [address] [place] [address] PCP - General 05/15/15 02/01/16 Frank Toure MD [address] [place] [address] [place] Hogshead Head Matcher CARDIOVASCULAR DISEASE 05/30/16 documented as of this encounter
--- OUTSIDE RECORDS SUMMARY | 2024-06-08 05:54 | XMS_ITS | Encounter Summary ---
Author Organization [facility] Address [address] [facility]. [place], [place] [address] [place] [address] Care Team Providers Care Marketing Proposal Specialist Name Role Phone Misael Maradiaga DO Primary Care Provider + [phone] Frank Toure MD Unavailable Vern, Kayla OYSTER PICKER Primary Care Provider [phone] Vern, Kayla OYSTER PICKER Primary Care Provider [phone] Evrn, Kayla OYSTER PICKER Primary Care Provider [phone] Vern, Kayla OYSTER PICKER Primary Care Provider [phone] Encounter Details Date Type Department Care Team (Latest Contact Info) Description 02/17/2016 Abstract [facility] Medical Group Social History Tobacco [...] on filedocumented in this encounter Care Teams Marketing Proposal Specialist Relationship Specialty Start Date End Date Misael Maradiaga PCP - General FAMILY PRACTICE 05/30/16 06/22/16 Kayla Porras NP [address] [place] [address] PCP - General 06/25/16 09/27/18 Kayla Porras NP [address] [place] [address] PCP - General 06/24/16 06/24/16 Kayla Porras NP [address] [place] [address] PCP - General 06/23/16 06/23/16 Kayla Porras NP [address] [place] [address] PCP - General 02/11/16 05/29/16 Frank Toure MD [address] [place] [address] [employer]ivo Youth Director CARDIOVASCULAR DISEASE 05/30/16 documented as of this encounter
--- OUTSIDE RECORDS SUMMARY | 2024-06-08 05:54 | XMS_ITS | Encounter Summary ---
Author Organization [facility] Address [address] [facility] [address] [place] [address] Care Team Providers Care Moderate Needs Teacher Name Role Phone Dany Toure MD Unavailable Kayla Porras NP Primary Care Provider [phone] Encounter Details Date Type Department Care Team (Late st Contact Info) Description 11/15/2016 SPECIAL DIET COOK ONLY [facility] [address] [place] [address] Dany Toure MD [address] [place] [address] Social History Tobacco Use Types Packs/Day Years Used Date Smoking Tobacco: Never Assessed Sex and Gender Information Value Date Recorded Sex Assigned at Not on file Legal Sex Male 10:23 PM CDT Gender Identity Not on file Sexual Orientation Not on file documented as of this encounter Consult Notes * Dany Toure MD - 11/15/2016 9:17 AM CDT BI TABOR MD: Acct: [id number] Admit/Service Date: 11/13/16 Discharge Date: : 1960 Pt Type: ADM IN Sex: M Ord Site: [facility] CHART DOCUMENT Patient seen at the request of the hospitalist. He is a patient of Dr. Restrepo. He came into the emergency room because of seizures and a fall. He had a laceration on the right forehead. CT scan showed no acute intracranial process. He does have old lacunar infarcts. The patient was noted to have very high CPK with normal troponins and there was some question of patient being evaluated for rhabdomyolysis because of his seizures. The patient denies any chest pain, denies any shortness of breath. He has history of hypertension, hyperlipidemia, and gives history of having had a previous CVA and has had stroke followed by seizure activity and his seizures have been treated with Keppra. He is also being treated for hypertension and hyperlipidemia with a combination of atorvastatin, amlodipine, and tamsulosin. The patient denies any chest pain, denies any shortness of breath, denies any other symptoms besides the seizures and the fall and the discomfort in the head associated with the fall. ALLERGIES: He is has no drug allergies. MEDICATIONS: At home include amlodipine, aspirin, atorvastatin, Keppra, and tamsulosin. PAST MEDICAL HISTORY: Positive for stroke, CVA, and seizures. History of hypertension. History of hyperlipidemia. History of acid reflux. History of prostate problems. He ambulates fairly well. PAST SURGICAL HISTORY: The patient has had no surgical procedures. FAMILY HISTORY: Positive for heart disease in his mother, history of hypertension. There is history of stroke. SOCIAL HISTORY: Patient lives with his family. He is a smoker, smokes about half a pack of cigarettes a day and is planning to quit. No history of recreational drug use. History of occasional alcohol use. REVIEW OF SYSTEMS: Negative for any recent weight gain, weight loss, fever, chest pain, shortness of breath. No history of bleeding from any site. No history of heat or cold intolerance. No history of unilateral muscle weakness. Positive for the seizures as mentioned and a right forehead laceration. Rest of the review of systems normal. PHYSICAL EXAMINATION: Patient is a pleasant, middle-aged male in no acute distress. Pulse is 60, regular, blood pressure is 130/70 in the right upper extremity. Head is normal. There is a laceration in the right forehead. Pupils are equal, react to light and accommodation. Extraocular movements are intact. Both carotids are well felt. There are no bruits. Thyroid is not enlarged. Chest is symmetric. Respiratory excursion normal. Lungs are clear to auscultation and percussion. Cardiac exam reveals normal heart sounds. There is no gallop. There is no murmur. Abdomen is soft, nontender. There are no masses. There is no pedal edema. Peripheral pulses are well felt. The electrocardiogram shows sinus rhythm with J-point elevation in V1 and V2 consistent with early repolarization. There are no other ST-T wave changes. LABORATORY WORK: Shows white count is 6.9, hemoglobin is 14.4, hematocrit 42.8. The sodium is 141, potassium 3.9, BUN is 13, creatinine 0.6. Cardiac enzymes include 3 sets of normal troponins. The CK is markedly elevated on admission at 1718 with a CK-MB of only 6.4. The most recent CK is 1487. IMAGING: The chest x-ray shows no acute changes. Head CT shows presence of old lacunar infarct in left thalamus. IMPRESSION: This gentleman comes in with seizure activity which led to the fall and has rhabdomyolysis accounting for the marked elevation of the CPK. The troponins are normal. There is no evidence of acute myocardial necrosis. He does have multiple risk factors for heart disease including hypertension, hyperlipidemia, and smoking. Would recommend evaluation with a stress test since he has not had any. We will get a treadmill stress echocardiogram. I do not expect to find anything abnormal. If it remains normal he could be discharged at the discretion of the neurologist and the primary care physician. Electronically Signed By: DANY TOURE M.D. 11/15/2016 11:15 A DANY TOURE M.D. A #[id number] Shiloh/aramis cc: Malena HART M.D. PANDURANGA KINI, M.D. ROOP LAL, M.D. ANTHONY L. TRUONG, D.O. documented in this encounter Plan of Treatment Not on file documented as of this encounter Visit Diagnoses Not on filedocumented in this encounter Care Teams Moderate Needs Teacher Relationship Specialty Start Date End Date Kayla Porras NP [address] [place] [address] PCP - General 06/25/16 09/27/18 Dany Toure MD [address] [place] [address] Chivo Pelts Skinner CARDIOVASCULAR DISEASE 05/30/16 documented as of this encounter
--- OUTSIDE RECORDS SUMMARY | 2024-06-08 05:54 | XMS_ITS | Encounter Summary ---
Author Organization [facility] Address [address] [facility] [place] [address] [place] [address] Care Team Providers Care Director Of Business Continuity Name Role Phone Frank Toure MD Unavailable Kayla Porras NP Primary Care Provider [phone] Encounter Details Date Type Department Care Team (Latest Contact Info) Description 10/26/2016 Abstract [facility] Medical Group Mark Devine MD [address] [facility] [address] [place] [address] Social History Tobacco Use Types Packs/Day Years [...] in this encounter Care Teams Director Of Business Continuity Relationship Specialty Start Date End Date Kayla Por[place] [address] PCP - General 06/25/16 09/27/18 Frank Toure MD [address] [place] [address] [employer] Embroidery Worker CARDIOVASCULAR DISEASE 05/30/16 documented as of this encounter
--- OUTSIDE RECORDS SUMMARY | 2024-06-08 05:54 | XMS_ITS | Encounter Summary ---
Author Organization [facility] Address [address] [facility]. [place], [place] [address] [place] [address] Care Team Providers Care Primary Care Nurse Name Role Phone Misael Maradiaga DO Primary Care Provider [phone] Frank Toure MD Unavailable Vern, Kayla COIL WINDING SUPERVISOR Primary Care Provider [phone] Vern, Kayla COIL WINDING SUPERVISOR Primary Care Provider [phone] VernKayla lopez COIL WINDING SUPERVISOR Primary Care Provider [phone] Vern, Kayla COIL WINDING SUPERVISOR Primary Care Provider [phone] Misael Maradiaga DO Primary Care Provider [phone] Burke Restrepo MD Primary Care Provider [phone] Encounter Details Date Type Department Care Team (Latest Contact Info) Description 07/28/2015 Abstract [facility] Medical Group Social History Tobacco Use Types [...] on filedocumented in this encounter Care Teams Primary Care Nurse Relationship Specialty Start Date End Date Misael Maradiaga DO PCP - General FAMILY PRACTICE 05/30/16 06/22/16 Kayla Porras NP [address] [place] [address] PCP - General 06/25/16 09/27/18 Kayla Porras NP [address] [place] [address] PCP - General 06/24/16 06/24/16 Kayla Porras NP [address] [place] [address] PCP - General 06/23/16 06/23/16 Kayla Porras NP [address] [place] [address] PCP - General 02/11/16 05/29/16 Misael Maradiaga DO PCP - General 02/02/16 02/10/16 Burke Restrepo MD [address] [place] [address] PCP - General 05/15/15 02/01/16 Frank Toure MD [address] [place] [address] [employer] Clipper Machine CARDIOVASCULAR DISEASE 05/30/16 documented as of this encounter
--- OUTSIDE RECORDS SUMMARY | 2024-06-08 05:54 | XMS_ITS | Encounter Summary ---
Author Organization [facility] Address [address] [place] [address] [place] [address] Care Team Providers Care Medical Radiation Therapist Name Role Phone Frank Toure MD Unavailable Kayla Porras NP Primary Care Provider [phone] Encounter Details Date Type Department Care Team (Late st Contact Info) Description 07/08/2016 Abstract [facility] Medical Group Family Medicine - [address] [phone] Misael Maradiaga, [address] [place] [phone] Social History Tobacco Use Types Packs/Day Years Used Date Smoking Tobacco: Never Assessed Sex and Gender Information Value Date Recorded Sex Assigned at Not on file Legal Sex Male 10:23 PM CDT Gender Identity Not on file Sexual Orientation Not on file documented as of this encounter Last Filed Vital Signs Vital Sign Reading Time Taken Comments Blood Pressure 135/75 07/08/2016 3:24 PM CLINICAL PROJECT COORDINATOR Pulse 70 07/08/2016 3:24 PM CLINICAL PROJECT COORDINATOR Temperature - - Respiratory Rate - - Oxygen Saturation - - Inhaled Oxygen Concentration - - Weight 62.1 kg (137 lb) 07/08/2016 3:24 PM CLINICAL PROJECT COORDINATOR Height - - Body Mass Index 21.46 07/24/2015 2:09 PM CLINICAL PROJECT COORDINATOR documented in this encounter Functional Status documented as of this encounter Mental Status * Question Answer Entry Date Author Status Because of a physical, mental, or emotional condition, do you have serious difficulty concentrating, remembering, or making decisions? 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 etoh vs methamphatmines which he deneis Keppra was increased to 1000 bid and DC since then, he has not had anymore sz he is awaiting f/u with neurology Review of systems General: denies any fevers, [...] Problems 1. Alcohol abuse (305.00) (F10.10) 2. History of CVA (cerebrovascular accident) (V12.54) (Z86.73) 3. Hyperlipidemia (272.4) (E78.5) 4. Hypertension (401.9) (I10) 5. Imbalance (781.2) (R26.89) 6. Need for hepatitis C screening test (V73.89) (Z11.59) 7. Screening for colon cancer (V76.51) (Z12.11) 8. Screening PSA (prostate specific antigen) (V76.44) (Z12.5) 9. Seizures (780.39) (R56.9) Past Medical History 1. History of stroke (V12.54) (Z86.73) Surgical History 1. Denied: History of Surgery Family History Mother 1. Family history of cardiac disorder (V17.49) (Z82.49) 2. Family history of hypertension (V17.49) (Z82.49) Father 3. Family history of hypertension (V17.49) (Z82.49) Sister 4. Family history of diabetes mellitus (V18.0) (Z83.3) Social History ?? Alcohol use (V49.89) (Z78.9) ?? Current every day smoker (305.1) (F17.200) ?? Single Current Meds 1. Acetaminophen 500 MG Oral Capsule; Therapy: (Recorded:25Sep2015) to Recorded 2. AmLODIPine Besylate 10 MG Oral Tablet; TAKE 1 TABLET DAILY FOR BLOOD PRESSURE Requested for: 26Apr2016; Last Rx:26Apr2016 Ordered 3. Aspirin 81 MG Oral Tablet Delayed Release; TAKE 1 TABLET DAILY DIRECTED; Therapy: 28Jun2016 to (Evaluate:[id number]) Requested for: 28Jun2016; Last Rx:28Jun2016 Ordered 4. Atorvastatin Calcium 40 MG Oral Tablet; TAKE 1 TABLET DAILY DIRECTED Requested for: 28Jun2016; Last Rx:28Jun2016 Ordered 5. LevETIRAcetam 750 MG Oral Tablet; take 2 tablets bid; Therapy: [id number] to (Evaluate:31Jul2016) Requested for: 02Jul2016; Last Rx:[id number]; Status: ACTIVE - Renewal Denied Ordered 6. Tamsulosin HCl - 0.4 MG Oral Capsule; Take 1 cap daily Requested for: 01Jul2016; Last Rx:01Jul2016 Ordered Allergies 1. No Known Drug Allergies Immunizations Influenza --- Series1: 23Jun2016 Vitals Recorded: 08Jul2016 03:24PM Heart Rate 70 Systolic 135 Diastolic 75 Weight 137 lb BMI Calculated 21.46 BSA Calculated 1.72 Assessment 1. Seizures (780.39) (R56.9) Plan Seizures 1. Neurology Referral Outpatient 56M with hx of breakthrough seizures on keppra, recently increased to 1g bid, send to neurology for eval and tx, thanks Status: Active Requested for: [id number] Ordered; For: Seizures; Ordered By: Misael Maradiaga Performed: Order Comments: 56M with hx of breakthrough seizures on keppra, recently increased to 1g bid, send to neurology for eval and tx, thanks Due: 23Sep2016; Last Updated By: Bea Saleh; 07/08/2016 3:28:56 PM Faxed to [facility] Discussion/Summary no SZ since increasing keppra was given # to [facility] where was referred to Advised pt make appt with them advised must abstain from drugs or ETOH f/u prn Signatures Electronically signed by : Misael Maradiaga D.O.; Jul 08 2016 3:43PM CLINICAL PROJECT COORDINATOR (Author) documented in this encounter Plan of Treatment Not on file documented as of this encounter Visit Diagnoses Not on filedocumented in this encounter Care Teams Medical Radiation Therapist Relationship Specialty Start Date End Date [place] [address] PCP - General 06/25/16 09/27/18 Frank Toure MD [address] [place] [address] Paint Lick Inspector Motor Vehicles CARDIOVASCULAR DISEASE 05/30/16 documented as of this encounter
--- OUTSIDE RECORDS SUMMARY | 2024-06-08 05:54 | XMS_ITS | Encounter Summary ---
Author Organization [facility] Address [address] [place] [address] [place] [address] Care Team Providers Care Non Garment Sewing Machine Operator Name Role Phone Frank Toure MD Unavailable Kayla Porras NP Primary Care Provider [phone] Encounter Details Date Type Department Care Team (Latest Contact Info) Description 08/27/2016 Abstract [facility] Medical Group Social History Tobacco Use Types [...] on filedocumented in this encounter Care Teams Non Garment Sewing Machine Operator Relationship Specialty Start Date End Date Kayla [place] [address] PCP - General 06/25/16 09/27/18 Frank Toure MD [address] [place] [address] [employer] Human Resources Operations Director CARDIOVASCULAR DISEASE 05/30/16 documented as of this encounter
--- OUTSIDE RECORDS SUMMARY | 2024-06-08 05:54 | XMS_ITS | Encounter Summary ---
Author Organization [facility] Address [address] [facility] [place] [address] [place] [address] Care Team Providers Care Industrial Education Instructor Name Role Phone Dany Toure MD Unavailable Kayla Porras NP Primary Care Provider [phone] Encounter Details Date Type Department Care Team (Late st Contact Info) Description 11/16/2016 [facility] Only [facility] [address] [place] [address] Toby Zapata PA-C [facility] [address] [place], [place] [id number] Social History Tobacco Use Types Packs/Day Years [...] Priority Date/Time Associated Diagnosis Comments CARDIOLOGY GENERIC 11/16/2016 1: 15 PM CDT documented in this encounter Results * CARDIOLOGY GENERIC (11/16/2016 1:15 PM CDT) 11/16/2016 1:15 PM CDT Narrative [facility] - 11/17/2016 12:00 AM CDT ? MOJGAN TABOR MD: TOBY ZAPATA ?? Acct: [id number] ?? Admit/Service Date: 11/13/16 Discharge Date: ?? : 1960 Pt Type: ADM IN ?? Sex: M Ord Site: [facility] ? Exam ? 11/16/2016 @ 13:15 ?TECH: LB ?? Date/Time: ? Accession Number ?? [id number] ?CHART DOCUMENT ? INDICATIONS: ??ABNORMAL ELECTROCARDIOGRAM ? RISK FACTORS: ??HYPERTENSION, UNABLE TO AMBULATE ON TREADMILL DUE TO HISTORY ? OF CEREBROVASCULAR ACCIDENTS ? BASELINE: ??HR 74 BPM, BLOOD PRESSURE 136/78 MMHG, PULSE OX 97% ? TYPE OF STRESS: ??LEXISCAN 0.4MG ? MAXIMUM: ??HR 146 BPM 88% MPHR, PEAK BLOOD PRESSURE 143/71 MMHG, METS: 1. ? SYMPTOMS: ??NONE ? BLOOD PRESSURE RESPONSE: ??NORMAL ? TERMINATED DUE TO: ??PROTOCOL END ? RESTING ELECTROCARDIOGRAM: ??NORMAL SINUS RHYTHM, POSSIBLE PRIOR ?? ANTEROSEPTAL MYOCARDIAL INFARCTION PATTERN ? STRESS ELECTROCARDIOGRAM: ??NO ST SEGMENT CHANGES DIAGNOSTIC OF ISCHEMIA, ON ? ATRIAL TRIPLET. ? CONCLUSIONS: ?1.CLINICALLY NEGATIVE. ?2.ELECTROCARDIOGRAM NEGATIVE. ?3.NUCLEAR IMAGES PENDING. ? Electronically Signed By: ?? TRESSA PARSON MD 11/17/2016 12:50 P ?? TRESSA PARSON MD ? D: ??11/16/2016 01:15 P ??#[id number] ?? T: ??11/17/2016 10:10 A/ecc ?? Document # [id number] ?? Report Type:CD ? cc: ?JIN QUINTANA M.D. ?PRASHANT GODFREY M.D. ?JOAO CRAWFORD M.D. ?DANY TOURE M.D. ?JOSSE ARBOLEDA D.O. ? Procedure Note Tressa Parson MD - 11/17/2016 MOJGAN TABOR MD: TOBY ZAPATA Acct: [id number] Admit/Service Date: 11/13/16 Discharge Date: : 1960 Pt Type: ADM IN Sex: M Ord Site: [facility] Exam 11/16/2016 @ 13:15 TECH: LB Date/Time: Accession Number [id number] CHART DOCUMENT INDICATIONS: ABNORMAL ELECTROCARDIOGRAM RISK FACTORS: HYPERTENSION, UNABLE TO AMBULATE ON TREADMILL DUE TOHISTORY OF CEREBROVASCULAR ACCIDENTS BASELINE: HR 74 BPM, BLOOD PRESSURE 136/78 MMHG, PULSE OX 97% TYPE OF STRESS: LEXISCAN 0.4MG MAXIMUM: HR 146 BPM 88% MPHR, PEAK BLOOD PRESSURE 143/71 MMHG, METS: 1. SYMPTOMS: NONE BLOOD PRESSURE RESPONSE: NORMAL TERMINATED DUE TO: PROTOCOL END RESTING ELECTROCARDIOGRAM: NORMAL SINUS RHYTHM, POSSIBLE PRIOR ANTEROSEPTAL MYOCARDIAL INFARCTION PATTERN STRESS ELECTROCARDIOGRAM: NO ST SEGMENT CHANGES DIAGNOSTIC OF ISCHEMIA,ON ATRIAL TRIPLET. CONCLUSIONS: 1.CLINICALLY NEGATIVE. 2.ELECTROCARDIOGRAM NEGATIVE. 3.NUCLEAR IMAGES PENDING. Electronically Signed By: TRESSA PARSON MD 11/17/2016 12:50 P TRESSA PARSON MD P #[id number] A/ecc Document # [id number] Report Type:CD cc: Malena RICHARDSON M.D. PANDURANGA KINI, M.D. ROOP LAL, M.D. ANTHONY L. TRUONG, D.O. us Toby Edil [facility] Edited Result - Final [facility] documented in this encounter Visit Diagnoses Not on filedocumented in this encounter Care Teams Industrial Education Instructor Relationship Specialty Start Date End Date Kayla Porras NP [address] [place] [address] [place] [address] PCP - General 06/25/16 09/27/18 Dany Toure MD [address] [place] [address] M[place]ison Shovel Logger CARDIOVASCULAR DISEASE 05/30/16 documented as of this encounter
--- OUTSIDE RECORDS SUMMARY | 2024-06-08 05:54 | XMS_ITS | Encounter Summary ---
Author Organization [facility] Address [address] [place] [place] [address] [place] [address] Care Team Providers Care Sheet Turner Name Role Phone Misael Maradiaga DO Primary Care Provider [phone] Frank Toure MD Unavailable Vern, Kayla CAFE TEAM MEMBER Primary Care Provider Vern, Kayla CAFE TEAM MEMBER Primary Care Provider Vern, Kayla CAFE TEAM MEMBER Primary Care Provider Vern, Kayla CAFE TEAM MEMBER Primary Care Provider Encounter Details Date Type Department Care Team (Late st Contact Info) Description 02/11/[address] [facility] Family Medicine - [address] [phone] Miseal Maradiaga DO [address] [address] Social History Tobacco Use Types Packs/Day Years Used Date Smoking Tobacco: Never Assessed Sex and Gender Information Value Date Recorded Sex Assigned at Not on file Legal Sex Male 10:23 PM CDT Gender Identity Not on file Sexual Orientation Not on file documented as of this encounter Last Filed Vital Signs Vital Sign Reading Time Taken Comments Blood Pressure 129/72 02/11/2016 8:56 AM CDT Pulse 99 02/11/2016 8:56 AM CDT Temperature - - Respiratory Rate - - Oxygen Saturation - - Inhaled Oxygen Concentration - - Weight 60.3 kg (133 lb) 02/11/2016 8:56 AM CDT Height - - Body Mass Index 20.83 07/24/2015 2:09 PM BOTTOM LOADER documented in this encounter Functional Status documented as of this encounter Mental Status * Question Answer Entry Date Author Status Because of a physical, mental, or emotional condition, do you have serious difficulty concentrating, remembering, or making decisions? No 08/28/2017 2:38 PM CDT Loraine Staley RN A ctive documented in this encounter Progress Notes * Misael Maradiaga, DO - 02/11/2016 9:00 AM CDT History of Present Illness 56M TCM Recently admitted to [facility] for SZ d/o. He presented to [facility] with slurred speech, mouth foaming and left sided weakness. CT head there neg, not tPA candidate, symptoms improved, but [facility] he was somnelent, likely from ativan. He was given 1G keppra as he ran out of keppra and took old dilantin tablets, tx to [facility] as he sees Dr Hancock While there, he was dx with encephalopathy from SZ episode due to poor medical compliance. He was restarted on SZ meds increased keppra, incr statin, and on ASA. He was DC 1 week ago, and told to see PCM for repeat labs of CBC, CK, CMP, and lipid Pt states he did not get refills of keppra as pharmacy was closed for holiday weekend Prior was on keppra 750 tid now he is on 1500 bid His neurologist is in [facility], but has not made f/u appt yet, but will call today Since DC , he has been SZ free He has enough refills now no other c/o Hosp notes reviewed meds reviewed also has dental exam form he wants filled out Review of systems General: denies [...] Extremities: No clubbing, cyanosis, or edema noted. Pulses 2+ Muscle strength 5/5 BUE, BLE Walks with walker to maintain balance Psych: Normal mood, normal affect Active Problems 1. Alcohol abuse (305.00) (F10.10) 2. History of CVA (cerebrovascular accident) (V12.54) (Z86.73) 3. Hyperlipidemia (272.4) (E78.5) 4. Hypertension (401.9) (I10) 5. Imbalance (781.2) (R26.89) 6. Seizures (780.39) (R56.9) Past Medical History 1. [...] TABLET DAILY FOR BLOOD PRESSURE Requested for: 28Aug2015; Last Rx:28Aug2015 Ordered 3. Aspirin 81 MG TABS; TAKE 1 TABLET DAILY Requested for: 28Aug2015; Last Rx:28Aug2015 Ordered 4. Atorvastatin Calcium 40 MG Oral Tablet; TAKE 1 TABLET DAILY DIRECTED Requested for: 28Aug2015; Last Rx:28Aug2015 Ordered 5. LevETIRAcetam 750 MG Oral Tablet; TK 2 TABLETS PO BID; Therapy: 04Feb2016 to Recorded 6. Tamsulosin HCl - 0.4 MG Oral Capsule; Therapy: (Recorded:25Sep2015) to Recorded Allergies 1. No Known Drug Allergies Vitals Recorded: 11Feb2016 08:56AM Heart Rate 99 Systolic 129 Diastolic 72 Weight 133 lb BMI Calculated 20.83 BSA Calculated 1.7 Assessment 1. Seizures (780.39) (R56.9) 2. Hypertension (401.9) (I10) 3. Hyperlipidemia (272.4) (E78.5) Plan 1. *LIPID Cholestech In Office; Status:Active; Requested for:11Feb2016; Perform:In Office; Due:12Mar2016;Ordered; For:Seizures; Ordered By:Misael Maradiaga; 2. CBC W Differential; Status:In Progress - Specimen/Data Collected; Done: 11Feb2016 Perform:[facility]; Due:12Mar2016; Last Updated By:Yonatan Gonzalez; 02/11/2016 9:27:34 AM;Ordered; For:Seizures; Ordered By:Misael Maradiaga; 3. CMP / Liver / Renal; Status:In Progress - Specimen/Data Collected; Done: 11Feb2016 Perform:[facility]; Due:12Mar2016; Last Updated By:Yonatan Gonzalez; 02/11/2016 9:27:34 AM;Ordered; For:Seizures; Ordered By:Misael Maradiaga; 4. Creatine Kinase ( CK ) ( CPK ); Status:In Progress - Specimen/Data Collected; Done: 11Feb2016 Perform:[facility]; Due:12Mar2016; Last Updated By:Yonatan Gonzalez; 02/11/2016 9:27:34 AM;Ordered; For:Seizures; Ordered By:Misael Maradiaga; Discussion/Summary reviewed notes now back on sz meds will f/u with neuro HTN controlled cont meds HLD due for labs check today cont meds dental exam form filled out ok for dental procedures f/u prn Signatures Electronically signed by : Misael Maradiaga D.O.; Feb 11 2016 9:29AM BOTTOM LOADER (Author) documented in this encounter Plan of Treatment Not on file documented as of this encounter Procedures Procedure Name Priority Date/Time Associated Diagnosis Comments CHOLESTECH (LIPID ONLY) Routine 02/11/2016 9:46 AM CDT COMPREHENSIVE METABOLIC PNL W/LIVER,RENAL Routine 02/11/2016 9:27 AM CDT CBC W/DIFF AUTOMATED Routine 02/11/2016 9:27 AM CDT CK (CPK) Routine 02/11/2016 9:27 AM CDT documented in this encounter Results * CHOLESTECH (LIPID ONLY) (02/11/2016 9:46 AM CDT) HDL 60mg/dL 40 - 60 mg/dL [facility] TO EP[facility] CONVERSION NON HDL CHOLESTEROL 67mg/dL [facility] TO [facility] CONVERSION TRIGLYCERIDES 51mg/dL < 150 mg/dL [facility] TO [facility] CONVERSION LDL (CALCULATED) 57mg/dL [facility] TO EP[facility] CONVERSION RATIO 2.1 < or = 4.5 [facility] TO [facility] CONVERSION CHOLESTEROL 127 < 200 mg/dL [facility] TO EP[facility] CONVERSION 02/11/2016 9:46 AM CDT 02/11/2016 9:46 AM CDT Narrative [facility] TO EP[facility] CONVERSION - 02/11/2016 9:46 AM CDT Result Communication: Mail Results to Patient Misael Maradiaga DO LABORATORY Final Result [facility] TO EP[facility] CONVERSION * (ABNORMAL) COMPREHENSIVE METABOLIC PNL W/LIVER,RENAL (02/11/2016 9:27 AM CDT) SODIUM S/P/B 140 136 - 145 mmol/L [facility] TO EPIC CONVERSION POTASSIUM S/P/B 4.5 3.5 - 5.1 mmol/L [facility] TO EPIC CONVERSION CHLORIDE S/P/B 102 98 - 107 mmol/L [facility] TO EPIC CONVERSION CO2 27 22 - 29 mmol/L [facility] TO EPIC CONVERSION ANION GAP 16 8 - 20 [facility] T O EPIC CONVERSION BUN 9 8 - 23 mg/dL [facility] TO EPIC CONVERSION CREATININE S/P/B 0.72 0.70 - 1.20 mg/dL [facility] TO EPIC CONVERSION GFR ESTIMATE >60 >60 mL/min/1 .73m'2 [facility] TO EPIC CONVERSION EGFR AFR. AMER. >60 NOTE: eGFR is not calculated for patients <18 years of age. This is an estimated GFR (CKD EPI) and should not be used for calculating drug doses. >60 mL/min/1 .73m'2 [facility] TO EPIC CONVERSION GLUCOSE 103(H) 70 - 99 mg/dL [facility] TO EP[facility] CONVERSION CALCIUM S/P/B 9.8 8.6 - 10.2 mg/dL [facility] TO EPIC CONVERSION PHOSPHORUS 3.5 2.7 - 4.5 mg/dL [facility] TO EPIC CONVERSION BILIRUBIN TOTAL S/P/B 0.3 0.2 - 1.2 mg/dL [facility] TO EPIC CONVERSION BILIRUBIN DIRECT S/P/B <0.20 0.0 - 0.3 mg/dL [facility] TO EPIC CONVERSION BILIRUBIN INDIRECT S/P/B NOT CALCULATED 0.0 - 0.9 mg/dL [facility] TO EP[facility] CONVERSION AST 17 0 - 40 U/L [facility] TO EPIC CONVERSION ALT 13 0 - 41 U/L [facility] TO EPIC CONVERSION ALKALINE PHOSPHATASE S/P/B 90 40 - 129 U/L [facility] TO EPIC CONVERSION TOTAL PROTEIN S/P/B 7.1 6.4 - 8.3 g/dL [facility] TO EPIC CONVERSION ALBUMIN S/P/B 4.8 3.5 - 5.2 g/dL [facility] TO EPIC CONVERSION GLOBULIN 2.3 2.3 - 3.6 g/dL [facility] TO [facility] CONVERSION A/G RATIO 2.1(H) 1.0 - 2.0 [facility] TO EPIC CONVERSION 02/11/2016 9:27 AM CDT 02/11/2016 9:27 AM CDT Narrative [facility] TO [facility] CONVERSION - 02/11/2016 8:26 PM CDT Result Communication: Mail Results to Patient Misael Maradiaga DO LABORATORY Final Result [facility] TO [facility] CONVERSION * (ABNORMAL) CBC W/DIFF AUTOMATED (02/11/2016 9:27 AM CDT) WBC 6.2 4.8 - 10.8 X10'3/uL [facility] TO EP[facility] CONVERSION RBC 4.68(L) 4.70 - 6.10 X10'6/uL [facility] TO EP[facility] CONVERSION HGB 15.1 14.0 - 18.0 g/dL [facility] TO EP[facility] CONVERSION HCT 46.7 43.0 - 54.0 % [facility] TO [facility] CONVERSION MCV 99.8(H) 80.0 - 94.0 fL [facility] TO EPIC CONVERSION MCH 32.3(H) 27.0 - 31.0 pg [facility] TO EPIC CONVERSION MCHC 32.3 32.0 - 36.0 g/dL [facility] TO EPIC CONVERSION RDW 12.0 11.5 - 14.5 % [facility] TO [facility] CONVERSION PLT 256 130 - 400 X10'3/uL [facility] TO EPIC CONVERSION GLUCOSE 11.4 9.3 - 12.2 fL [facility] TO EPIC CONVERSION BASOPHILS % 0.3 0.0 - 1.0 % [facility] TO EPIC CONVERSION EOSINOPHILS % 3.7(H) 1.0 - 3.0 % [facility] TO EPIC CONVERSION NEUTROPHILS % 59.9 43.0 - 65.0 % [facility] TO EPIC CONVERSION LYMPHOCYTES % 27.4 20.0 - 46.0 % [facility] TO EP[facility] CONVERSION IMMATURE GRANS % 0.2 0.0 - 1.0 % [facility] TO EPIC CONVERSION DIFFERENTIAL TYPE AUTOMATED [facility] TO [facility] CONVERSION MONOCYTES 8.5 5.0 - 12.0 % [facility] TO [facility] CONVERSION 02/11/2016 9:27 AM CDT 02/11/2016 9:27 AM CDT Narrative [facility] TO EP[facility] CONVERSION - 02/11/2016 7:43 PM CDT Result Communication: Mail Results to Patient Misael Maradiaga DO LABORATORY Final Result [facility] TO EPIC CONVERSION * CK (CPK) (02/11/2016 9:27 AM CDT) CPK 160 39 - 308 U/L [facility] TO EPIC CONVERSION 02/11/2016 9:27 AM CDT 02/11/2016 9:27 AM CDT Narrative [facility] TO EPIC CONVERSION - 02/11/2016 8:26 PM CDT Result Communication: Mail Results to Patient Misael Maradiaga DO LABORATORY Final Result [facility] TO [facility] CONVERSION documented in this encounter Visit Diagnoses Not on filedocumented in this encounter Care Teams Sheet Turner Relationship Specialty Start Date End Date Misael Maradiaga DO PCP - General FAMILY PRACTICE 05/30/16 06/22/16 Kayla Porras NP [address] [place] [address] PCP - General 06/25/16 09/27/18 Kayla Porras NP [address] [place], [place] [id number] PCP - General 06/24/16 06/24/16 Kyala Porras NP [address] [place], [place] [id number] PCP - General 06/23/16 06/23/16 Kayla Porras NP [address] [place] [address] PCP - General 02/11/16 05/29/16 Frank oTure MD [address] [place] [address] [employer] Paperback Machine Operator CARDIOVASCULAR DISEASE 05/30/16 documented as of this encounter
--- OUTSIDE RECORDS SUMMARY | 2024-06-08 05:54 | XMS_ITS | Encounter Summary ---
Author Organization [facility] Address [address] [place] [address] [place] [address] Care Team Providers Care Candy Roller Name Role Phone Kayla Porras NP Primary Care Provider [phone] Misael Maradiaga DO Primary Care Provider + [phone] Ampadu, Burke Esetban MD Primary Care Provider + [phone] Ampacornelius, Burke Esteban MD Primary Care Provider + [phone] Ampadu, Burke Esteban MD Primary Care Provider + [phone] Ampadu, Burke Esteban MD Primary Care Provider + [phone] Ampadu, Burke Esteban MD Primary Care Provider + [phone] Encounter Details Date Type Department Care Team (Late st Contact Info) Description 03/13/2015 Abstract [facility] [address] [place] [address] Jerica Tsai MD Social History Tobacco Use [...] on filedocumented in this encounter Care Teams Candy Roller Relationship Specialty Start Date End Date Kayla Porras NP [address] [place] [address] PCP - General 02/11/16 05/29/16 Misael Maradiaga DO [address] [place] [address] PCP - General 02/02/16 02/10/16 Burke Restrepo MD [address] [place] [address] PCP - General 05/15/15 02/01/16 Burke Restrepo MD [address] [place] [address] PCP - General 05/09/15 05/14/15 Burke Restrepo MD [address] [place] [address] PCP - General 05/08/15 05/08/15 Burke Restrepo MD [address] [place] [address] PCP - General 03/19/15 05/07/15 Burke Restrepo MD [address] [place] [address] PCP - General 03/11/15 03/18/15 documented as of this encounter
--- OUTSIDE RECORDS SUMMARY | 2024-06-08 05:54 | XMS_ITS | Encounter Summary ---
Author Organization [facility] Address [address] [place] [address] [place] [address] Care Team Providers Care Housing Assistant Property Manager Name Role Phone Frank Toure MD Unavailable VernKayla lopez BOOT LINER MAKER Primary Care Provider [phone] VernKayla lopez BOOT LINER MAKER Primary Care Provider [phone] VernKayla lopez BOOT LINER MAKER Primary Care Provider [phone] Encounter Details Date Type Department Care Team (Late st Contact Info) Description 06/23/2016 Abstract [facility] Family Medicine - [address] [address] Misael Maradiaga, DO [address] [place] [phone] Social History Tobacco Use Types Packs/Day Years Used Date Smoking Tobacco: Never Assessed Sex and Gender Information Value Date Recorded Sex Assigned at Not on file Legal Sex Male 10:23 PM CDT Gender Identity Not on file Sexual Orientation Not on file documented as of this encounter Last Filed Vital Signs Vital Sign Reading Time Taken Comments Blood Pressure 122/83 06/23/2016 10:52 AM SERVICE PERSON Pulse 83 06/23/2016 10:52 AM SERVICE PERSON Temperature - - Respiratory Rate - - Oxygen Saturation - - Inhaled Oxygen Concentration - - Weight 63.1 kg (139 lb) 06/23/2016 10:52 AM SERVICE PERSON Height - - Body Mass Index 21.77 07/24/2015 2:09 PM SERVICE PERSON documented in this encounter Functional Status documented as of this encounter Mental Status * Question Answer Entry Date Author Status Because of a physical, mental, or emotional condition, do you have serious difficulty concentrating, remembering, or making decisions? No 08/28/2017 2:38 PM CDT Loraine Staley RN A ctive documented in this encounter Progress Notes * Misael Chau Maradiaga, DO - 06/23/2016 10:30 AM CST History of Present Illness HM, Adult Male: The patient is being seen for a health maintenance evaluation. General Health: Lifestyle:. He consumes a diverse and healthy diet. He does not have any weight concerns. He exercises regularly. He uses tobacco. He denies alcohol use. He denies drug use. Screening: cancer screening reviewed and updated. metabolic screening reviewed and updated. risk screening reviewed and updated. Additional History:. no etoh for almost 1 year now he goes to [facility] sund[facility] now feeling good overall no c/o. Review of Systems Constitutional: negative. Head and Face: negative. Eyes: negative. ENT: negative. Cardiovascular: negative. Respiratory: negative. Gastrointestinal: negative. Genitourinary: negative. Musculoskeletal: negative. Neurological: negative. Psychiatric: negative. Endocrine: negative. Hematologic and Lymphatic: negative. Active Problems 1. Alcohol abuse (305.00) (F10.10) 2. History of CVA (cerebrovascular accident) (V12.54) (Z86.73) 3. Hyperlipidemia (272.4) (E78.5) 4. Hypertension (401.9) (I10) 5. Imbalance (781.2) (R26.89) 6. Seizures (780.39) (R56.9) Past Medical History ?? History of stroke (V12.54) (Z86.73) Surgical History ?? Denied: History of Surgery Family History Mother ?? Family history of cardiac disorder (V17.49) (Z82.49) ?? Family history of hypertension (V17.49) (Z82.49) Father ?? Family history of hypertension (V17.49) (Z82.49) Sister ?? Family history of diabetes mellitus (V18.0) (Z83.3) Social History ?? Alcohol use (V49.89) (Z78.9) ?? Current every day smoker (305.1) (F17.200) ?? Single Current Meds 1. Acetaminophen 500 MG Oral Capsule; Therapy: (Recorded:25Sep2015) to Recorded Dispense: 0 Days ; #: Sufficient CAPS; Refill: 0; RACHEL = N; Record; Last Updated By: Patricia Camilo; 09/25/2015 2:45:27 PM 2. AmLODIPine Besylate 10 MG Oral Tablet; TAKE 1 TABLET DAILY FOR BLOOD PRESSURE Requested for: 26Apr2016; Last Rx:26Apr2016 Ordered Rx By: Misael Maradiaga; Dispense: 90 Days ; #:90 Tablet; Refill: 3; For: Hypertension; RACHEL = N; Verified Transmission to [facility]; Last Updated By: Codota; 04/26/2016 1:57:00 PM 3. Aspirin 81 MG TABS; TAKE 1 TABLET DAILY Requested for: 28Aug2015; Last Rx:28Aug2015 Ordered Rx By: Misael Maradiaga; Dispense: 90 Days ; #:90 Tablet; Refill: 3; For: History of CVA (cerebrovascular accident); RACHEL = N; Verified Transmission to [facility]; Last Updated By: Codota; 08/28/2015 7:32:16 AM 4. Atorvastatin Calcium 40 MG Oral Tablet; TAKE 1 TABLET DAILY DIRECTED Requested for: 28Aug2015; Last Rx:28Aug2015 Ordered Rx By: Misael Maradiaga; Dispense: 90 Days ; #:90 Tablet; Refill: 3; For: Hyperlipidemia; RACHEL = N; Verified Transmission to [facility]; Last Updated By: Codota; 08/28/2015 7:32:17 AM 5. LevETIRAcetam 750 MG Oral Tablet; take 2 tablets bid; Therapy: [id number] to (Evaluate:[id number]) Requested for: 26Apr2016; Last Rx:26Apr2016 Ordered Rx By: Misael Maradiaga; Dispense: 30 Days ; #:120 Tablet; Refill: 0; For: Seizures; RACHEL = N; Verified Transmission to [facility]; Msg to Pharmacy: NEEDS TO COME FROM NEUROLOGY; Last Updated By: Codota; 04/26/2016 3:42:57 PM 6. Tamsulosin HCl - 0.4 MG Oral Capsule; Take 1 cap daily Requested for: [id number]; Last Rx:[id number] Ordered Rx By: Misael Maradiaga; Dispense: 0 Days ; #:30 Capsule; Refill: 5; For: Health Maintenance; RACHEL = N; Verified Transmission to [facility]; Last Updated By: Codota; 05/19/2016 11:24:50 AM Allergies 1. No Known Drug Allergies Recorded By: Dina Dennis; 07/24/2015 1:54:45 PM Vitals Recorded: 23Jun2016 10:52AM Heart Rate 83 Systolic 122 Diastolic 83 Weight 139 lb BMI Calculated 21.77 BSA Calculated 1.73 Physical Exam Constitutional General appearance: No acute [...] varicosities: Normal. Abdomen Abdomen: Non-tender, no masses. Liver and spleen: No hepatomegaly or splenomegaly. Psychiatric Orientation to person, place and time: Normal. Mood and affect: Normal. Assessment 1. Encounter for preventive health examination (V70.0) (Z00.00) 2. Hypertension (401.9) (I10) 3. Hyperlipidemia (272.4) (E78.5) 4. Screening PSA (prostate specific antigen) (V76.44) (Z12.5) 5. Screening for colon cancer (V76.51) (Z12.11) 6. Need for hepatitis C screening test (V73.89) (Z11.59) Plan Need for hepatitis C screening test ?? Hepatitis C Virus ( HCV ) Ab; Status:Hold For - Manual Activation; Requested for:23Jun2016; [facility]; Due:[id number];Ordered; For:Need for hepatitis C screening test; Ordered By:Misael Maradiaga; Screening for colon cancer ?? Gastroenterology Referral Outpatient 56M needing screening c-scope, send for eval and tx, thanks Status: Need Information - Financial Authorization Requested for: 23Jun2016 Ordered; For: Screening for colon cancer; Ordered By: Misael Maradiaga Performed: Due: 07Jul2016 Screening PSA (prostate specific antigen) ?? Prostate Specif Ag ( PSA ) Scrn; Status:Hold For - Manual Activation; Requested for:23Jun2016; Perform:[facility]; Due:23Jul2016;Ordered; For:Screening PSA (prostate specific antigen); Ordered By:Misael Maradiaga; Discussion/Summary Impression: health maintenance visit. Currently, he eats an adequate diet and has an adequate exercise regimen. Prostate cancer screening: the risks and benefits of prostate cancer screening were discussed and PSA was ordered. Colorectal cancer screening: the risks and benefits of colorectal cancer screening were discussed and colonoscopy has been ordered. The immunizations are needed and flu shot today. Advice and education were given regarding nutrition, aerobic exercise, cardiovascular risk reduction, tobacco cessation and alcohol use. HTN controlled cont current meds HLD on meds reviewed recent labs check HCV f/u prn Signatures Electronically signed by : Misael Maradiaga D.O.; Jun 23 2016 11:01AM SERVICE PERSON (Author) documented in this encounter Plan of Treatment Not on file documented as of this encounter Procedures Procedure Name Priority Date/Time Associated Diagnosis Comments PROSTATE SPECIFIC ANTIGEN,TOTAL Routine 06/23/2016 11:13 AM SERVICE PERSON HEPATITIS C ANTIBODY Routine 06/23/2016 11:13 AM SERVICE PERSON documented in this encounter Results * PROSTATE SPECIFIC ANTIGEN,TOTAL (06/23/2016 11:13 AM SERVICE PERSON) PSA 0.461 <4.0 ng/mL [facility] TO EPIC CONVERSION Comment: Result Comment: TEST WAS PERFORMED USING THE SILVIA METHOD. ??PSA VALUES OBTAINED WITH OTHER ASSAY METHODS OR KITS CANNOT BE USED INTERCHANGEABLY WITH RESULTS OBTAINED BY THE SILVIA METHOD. 06/23/2016 11:1 3 AM SERVICE PERSON 06/23/2016 11:13 AM SERVICE PERSON Narrative [facility] TO EPIC CONVERSION - 06/23/2016 9:45 PM SERVICE PERSON Result Communication: No patient communication needed at this time Misael Maradiaga DO LABORATORY Final Result [facility] TO EPIC CONVERSION * HEPATITIS C ANTIBODY (06/23/2016 11:13 AM SERVICE PERSON) HEPATITIS C AB NON-REACTIVE ? TESTING PERFORMED AT [place] [id number] [facility] TO EPIC CONVERSION 06/23/2016 11:1 3 AM SERVICE PERSON 06/23/2016 11:13 AM SERVICE PERSON Narrative [facility] TO EPIC CONVERSION - 06/24/2016 6:41 PM SERVICE PERSON Result Communication: No patient communication needed at this time Misael Maradiaga DO LABORATORY Final Result Performing Organization Address City/[facility]/ZIP Co de Phone Number [facility] TO EPIC CONVERSION documented in this encounter Visit Diagnoses Not on filedocumented in this encounter Care Teams Housing Assistant Property Manager Relationship Specialty Start Date End Date Kayla Porras BOOT LINER MAKER [address] [place] [address] PCP - General 06/25/16 09/27/18 Kayla Porras BOOT LINER MAKER [address] [place] [address] PCP - General 06/24/16 06/24/16 Kayla Porras NP [address] [place] [address] PCP - General 06/23/16 06/23/16 Frank Toure MD [address] [place] [address] [employer] Plate Glass Installer CARDIOVASCULAR DISEASE 05/30/16 documented as of this encounter
--- OUTSIDE RECORDS SUMMARY | 2024-06-08 05:54 | XMS_ITS | Encounter Summary ---
Author Organization [facility] Address [address] [place] [address] [place] [address] Care Team Providers Care Bolt Threader Name Role Phone Misael Maradiaga DO Primary Care Provider + [phone] Frank Toure MD Unavailable Vern, Kayla SIDEROGRAPHER Primary Care Provider [phone] Vern, Kayla SIDEROGRAPHER Primary Care Provider [phone] Vern, Kayla SIDEROGRAPHER Primary Care Provider [phone] Vern, Kayla SIDEROGRAPHER Primary Care Provider [phone] Misael Maradiaga DO Primary Care Provider + [phone] Burke Restrepo MD Primary Care Provider + [phone] Burke Restrepo MD Primary Care Provider + [phone] Burke Restrepo MD Primary Care Provider + [phone] Burke Restrepo MD Primary Care Provider + [phone] Encounter Details Date Type Department Care Team (Late st Contact Info) Description 03/19/2015 Abstract [facility] [place] [address] Macrina Koehler MD [address] [place], [place] [address] Social History Tobacco Use Types Packs/Day Years Used Date Smoking Tobacco: Never Assessed Sex and Gender Information Value Date Recorded Sex Assigned at Not on file Legal Sex Male 10:23 PM CDT Gender Identity Not on file Sexual Orientation Not on file documented as of this encounter Plan of Treatment Not on file documented as of this encounter Visit Diagnoses Diagnosis Sequelae of cerebral infarction Unspecified late effects of cerebrovascular disease documented in this encounter Care Teams Bolt Threader Relationship Specialty Start Date End Date Misael Maradiaga DO PCP - General FAMILY PRACTICE 05/30/16 06/22/16 Kayla Porras NP [address] [facility], [place] [id number] PCP - General 06/25/16 09/27/18 Kayla Porras NP [address] [place] [address] PCP - General 06/24/16 06/24/16 Kayla Porras NP [address] [place] [place] [address] PCP - General 06/23/16 06/23/16 Kayla Porras NP [address] [place] [address] PCP - General 02/11/16 05/29/16 Misael Maradiaga DO PCP - General 02/02/16 02/10/16 Burke Restrepo MD [address] [place] [address] PCP - General 05/15/15 02/01/16 Burke Restrepo MD [address] [place] [address] PCP - General 05/09/15 05/14/15 Burke Restrepo MD [address] [place] [address] PCP - General 05/08/15 05/08/15 Burke Restrepo MD [address] [place] [address] PCP - General 03/19/15 05/07/15 Frank Toure MD [address] [place] [id number] [place] Assistant News Director CARDIOVASCULAR DISEASE 05/30/16 documented as of this encounter
--- OUTSIDE RECORDS SUMMARY | 2024-06-08 05:54 | XMS_ITS | Encounter Summary ---
Author Organization [facility] Address [address] [place] [address] [place] [address] Care Team Providers Care Light Rail Signal Technician Name Role Phone Frank Toure MD Unavailable Kayla Porras NP Primary Care Provider [phone] Encounter Details Date Type Department Care Team (Late st Contact Info) Description 11/16/2016 [facility] ONLY [facility] AT [facility] [place] [address] Joao Hancock MD [address] [place] [id number] Social History Tobacco Use Types Packs/Day Years Used Date Smoking Tobacco: Never Assessed Sex and Gender Information Value Date Recorded Sex Assigned at Not on file Legal Sex Male 10:23 PM CDT Gender Identity Not on file Sexual Orientation Not on file documented as of this encounter Consult Notes * Joao Hancock MD - 11/16/2016 11:20 AM CDT BI TABOR MD: Acct: [id number] Admit/Service Date: 11/13/16 Discharge Date: : 1960 Pt Type: ADM IN Sex: M Ord Site: [facility] CHART DOCUMENT DATE OF CONSULTATION: 11/16/2016 REFERRING PHYSICIAN: Amber Quiñonez MD I saw Mr. Tabor again today. He is more awake, coherent. Oriented to place and person and somewhat in time. He complains of a little dizziness. His gait is mildly unsteady. He told me he walked without any assistance at home and gait is worse since his last seizure. His daughter told the nurse that he is not taking medicine regularly but he states he is taking medicines 3 a day, 1 in the morning, 1 in the afternoon, 1 in the evening. He is supposed to take 5 mg 2 b.i.d. So although I increased the dose of Keppra to 1.5 g b.i.d., b.i.d., I am going to cut him back to 1 g b.i.d. to see if it helps his balance. Physical therapy is already seeing him. I told him to take 2 in the morning for everything and explained to him that if he does not take his medicine, he is going to have seizure which may cause worsening of his neurological and cognitive status. Electronically Signed By: JOAO HANCOCK M.D. 11/17/2016 05:05 P JOAO HANCOCK M.D. A #[id number] P/aramis cc: Malena RICHARDSON M.D. PANDURANGA KINI, M.D. ANTHONY L. TRUONG, D.O. documented in this encounter Plan of Treatment Not on file documented as of this encounter Visit Diagnoses Not on filedocumented in this encounter Care Teams Light Rail Signal Technician Relationship Specialty Start Date End Date Kayla [place] [address] PCP - General 06/25/16 09/27/18 Frank Toure MD [address] [place] [address] [employer] Laborer [employer] CARDIOVASCULAR DISEASE 05/30/16 documented as of this encounter
--- OUTSIDE RECORDS SUMMARY | 2024-06-08 05:54 | XMS_ITS | Encounter Summary ---
Author Organization [facility] Address [address] [facility] [place] [address] [place] [address] Care Team Providers Care Director Construction Services Name Role Phone Frank Toure MD Unavailable Kayla Porras NP Primary Care Provider [phone] Encounter Details Date Type Department Care Team (Late st Contact Info) Description 11/13/2016 Orders Only [facility] [address] [place] [address] Jefferson Laird MD Social History Tobacco Use Types Packs/Day [...] Priority Date/Time Associated Diagnosis Comments CARDIOLOGY GENERIC 11/13/2016 7: 30 PM CDT documented in this encounter Results * CARDIOLOGY GENERIC (11/13/2016 7:30 PM CDT) 11/13/2016 7:30 PM CDT Narrative [facility] - 11/13/2016 12:00 AM CDT ? BI TABOR Ordering MD: JEFFERSON LAIRD MD ?? Acct: [id number] ?? Admit/Service Date: 11/13/16 Discharge Date: ?? : 1960 Pt Type: REG ER ?? Sex: M Ord Site[facility] [address], [place], [place] ?Test Date: ?2016-11-13 ?? Pat Name: ? BI TABOR ? Department: CARD ?? 41 ? Room: ? Gender: ? Male ? In Home Caregiver: ?? PL ?? : ?1960 ? Requested By: JEFFERSON LAIRD ?? Order Number: [id number] ?Reading MD: ?? Nadir Parson ?Measurements ?? Intervals ?Dexter ? Rate: ? 95 ? P: ?73 ?? UT: ? 178 ?QRS: ?34 ?? QRSD: ? 90 ? T: ?68 ?? QT: ? 330 ? QTc: ?416 ?Interpretive Statements ?? SINUS RHYTHM ?? possible SEPTAL MYOCARDIAL INFARCTION ?? junctional point elevation, clinical correlation suggested ?? Compared to ECG 03/11/2015 14:15:35 ?? Sinus tachycardia no longer present ?? junctional point elevation present and more prominent ?? Short UT interval no longer present ?? Myocardial infarct finding still present ? Procedure Note Nadir Parson MD - 11/13/2016 BI TABOR Ordering MD: JEFFERSON LAIRD MD Acct: [id number] Admit/Service Date: 11/13/16 Discharge Date: : 1960 Pt Type: REG ER Sex: M Ord Site: [address] Test Date: 2016-11-13 Pat Name: BI TABOR Department: CARD 41 Room: Gender: Male In Home Caregiver: PL : 1960 Requested By: JEFFERSON Davies Number: [id number] Reading MD: Nadir Parson Measurements Intervals Dexter Rate: 95 P: 73 UT: 178 QRS: 34 QRSD: 90 T: 68 QT: 330 QTc: 416 Interpretive Statements SINUS RHYTHM possible SEPTAL MYOCARDIAL INFARCTION junctional point elevation, clinical correlation suggested Compared to ECG 03/11/2015 14:15:35 Sinus tachycardia no longer present junctional point elevation present and more prominent Short UT interval no longer present Myocardial infarct finding still present us Jefferson Laird MD [facility] Final Re sult [facility] documented in this encounter Visit Diagnoses Not on filedocumented in this encounter Care Teams Director Construction Services Relationship Specialty Start Date End Date Kayla Porras NP [place] [address] PCP - General 06/25/16 09/27/18 Frank Toure MD [address] [place] [address] [employer] Costing Analyst CARDIOVASCULAR DISEASE 05/30/16 documented as of this encounter
--- OUTSIDE RECORDS SUMMARY | 2024-06-08 05:54 | XMS_ITS | Encounter Summary ---
Author Organization [facility] Address [address] [facility]. [place], [place] [address] [place] [address] Care Team Providers Care Construction Driver Name Role Phone Misael Maradiaga DO Primary Care Provider + [phone] Frank Toure MD Unavailable Vern, Kayla ARMATURE COIL WINDER Primary Care Provider [phone] Vern, Kayla ARMATURE COIL WINDER Primary Care Provider [phone] Vern, Kayla ARMATURE COIL WINDER Primary Care Provider [phone] Vern, Kayla ARMATURE COIL WINDER Primary Care Provider [phone] Misael Maradiaga DO Primary Care Provider + [phone] Burke Restrepo MD Primary Care Provider + [phone] Encounter Details Date Type Department Care Team (Late st Contact Info) Description 07/24/2015 Abstract [facility] Family Medicine - [address] [phone] Misael Maradiaga DO [address] [place] [phone] Social History Tobacco Use Types Packs/Day Years Used Date Smoking Tobacco: Never Assessed Sex and Gender Information Value Date Recorded Sex Assigned at Not on file Legal Sex Male 10:23 PM CDT Gender Identity Not on file Sexual Orientation Not on file documented as of this encounter Last Filed Vital Signs Vital Sign Reading Time Taken Comments Blood Pressure 149/102 07/24/2015 2:09 PM DRY MOLDER Pulse 93 07/24/2015 2:09 PM DRY MOLDER Temperature - - Respiratory Rate - - Oxygen Saturation - - Inhaled Oxygen Concentration - - Weight 61.1 kg (134 lb 9.6 oz) 07/24/2015 2:09 P M DRY MOLDER Height 170.2 cm (5' 7 ) 07/24/2015 2:09 PM DRY MOLDER Body Mass Index 21.08 07/24/2015 2:09 PM DRY MOLDER documented in this encounter Functional Status documented as of this encounter Mental Status * Question Answer Entry Date Author Status Because of a physical, mental, or emotional condition, do you have serious difficulty concentrating, remembering, or making decisions? No 08/28/2017 2:38 PM CDT Loraine Staley RN A ctive documented in this encounter Progress Notes * Misael Maradiaga, DO - 07/24/2015 2:15 PM CST Reason For Visit New Patient Visit Chief Complaint ARMATURE COIL WINDER to est and discuss meds History of Present Illness HPI Free Text: 55M new pt eval Last PCM Dr Restrepo here with his sister + smoking + etoh, last drink was 37 days but when he did drink, he has not control and cant stop disability from stroke and sz Has numerous medical problems SZ d/o since 1991 Pt fell back and hit head, and suffered SZ on dilantin and keppra now last SZ was Feb 2015 Was taken to hospital also developed stroke Saw Dr Hancock during that time has not seen him as out pt though CVA in Feb 2015 left him with imbalance uses walker to maintain balance was in custodial for rehab now doing home health for continued rehab HTN on amlopdipine 10mg for several years was at nursing for rehab for stroke, but this medication was stopped 3 weeks ago due to low BP BPH on flomax 0.4mg po qhs this helps his symptom anxiety was on prozac but has stopped taking this for past few mos feels his anxiety is controlled Review of systems General: denies any fevers, chills. Gastrointestinal: Patient denies any nausea, vomiting, diarrhea or constipation Genitourinary: Patient denies dysuria, hematuria, urgency or frequency Cardiovascular: Patient denies Chest pain, shortness of breath. Mental Health: as above All other ROS negative unless specified above Physical Exam General: Well-developed, well-nourished, in no [...] BUE, BLE Walks with walker to maintain balance, without walker he would lean to left or right and would needassistance to stay up Psych: Normal mood, normal affect Active Problems 1. Hypertension (401.9) (I10) 2. Seizures (780.39) (R56.9) Past Medical History 1. [...] (305.1) (F17.200) ?? Single Current Meds 1. AmLODIPine Besylate 10 MG Oral Tablet; TAKE 1 TABLET BY MOUTH EVERY DAY; Therapy: (Recorded:[id number]) to Recorded Dispense: 90 Days ; #:90 Tablet; Refill: 0; RACHEL = N; Record; Last Updated By: Dina [place];07/24/2015 2:09:22 PM 2. Aspirin 81 MG Oral Tablet; TAKE 1 TABLET DAILY; Therapy: (Recorded:[id number]) to Recorded Dispense: 90 Days ; #:90 Tablet; Refill: 0; RACHEL = N; Record; Last Updated By: Dina [place];07/24/2015 2:09:22 PM 3. Dilantin 100 MG Oral Capsule; TAKE 1 CAPSULE 3 TIMES DAILY; Therapy: (Recorded:24Jul2015) to Recorded Dispense: 0 Days ; #: Sufficient Capsule; Refill: 0; RACHEL = N; Record; Last Updated By: Dina [place]; 07/24/2015 2:09:22 PM 4. Flomax 0.4 MG Oral Capsule; TAKE ONE CAPSULE BY MOUTH ONCE DAILY; Therapy: (Recorded:24Jul2015) to Recorded Dispense: 0 Days ; #: Sufficient Capsule; Refill: 0; RACHEL = N; Record; Last Updated By: Dina [place]; 07/24/2015 2:09:22 PM 5. Ibuprofen 800 MG Oral Tablet; TAKE 1 TABLET EVERY 8 HOURS NEEDED; Therapy: (Recorded:24Jul2015) to Recorded Dispense: 10 Days ; #:30 Tablet; Refill: 0; RACHEL = N; Record; Last Updated By: Dina [place];07/24/2015 2:09:22 PM 6. Keppra 750 MG Oral Tablet; TAKE 1 TABLET TWICE DAILY; Therapy: (Recorded:24Jul2015) to Recorded Dispense: 0 Days ; #: Sufficient Tablet; Refill: 0; RACHEL = N; Record; Last Updated By: Dina [place]; 07/24/2015 2:09:22 PM 7. PROzac 20 MG Oral Capsule; TAKE 1 CAPSULE Daily; Therapy: (Recorded:24Jul2015) to Recorded Dispense: 0 Days ; #: Sufficient Capsule; Refill: 0; RACHEL = N; Record; Last Updated By: Dina [place]; 07/24/2015 2:09:22 PM Allergies 1. No Known Drug Allergies Recorded By: Dina [place]; 07/24/2015 1:54:45 PM Vitals Recorded: 24Jul2015 02:09PM Heart Rate 93 Respiration 16 Systolic 149 Diastolic 102 O2 Saturation 98 Height 5 ft 7 in Weight 134 lb 9.6 oz BMI Calculated 21.08 BSA Calculated 1.71 Assessment 1. Establishing care with new doctor, encounter for (V65.8) (Z71.89) 2. Seizures (780.39) (R56.9) 3. Hypertension (401.9) (I10) 4. History of CVA (cerebrovascular accident) (V12.54) (Z86.73) 5. Imbalance (781.2) (R26.89) 6. Alcohol abuse (305.00) (F10.10) Plan Alcohol abuse 1. Compr Metabolic Prof ( CMP ); Status:Hold For - Manual Activation; Requested for:24Jul2015; Perform:[facility]; Due:23Aug2015;Ordered; For:Alcohol abuse; Ordered By:Misael Maradiaga; 2. Lipid Profile; Status:Hold For - Manual Activation; Requested for:24Jul2015; Perform:[facility]; Due:23Aug2015;Ordered; For:Alcohol abuse; Ordered By:Misael Maradiaga; 3. Phenytoin ( Dilantin ); Status:Hold For - Manual Activation; Requested for:24Jul2015; Perform:[facility]; Due:23Aug2015;Ordered; For:Alcohol abuse; Ordered By:Misael Maradiaga; History of CVA (cerebrovascular accident) 4. Pravastatin Sodium 40 MG Oral Tablet; TAKE 1 TABLET BY MOUTH EVERY DAY Rx By: Misael Maradiaga; Dispense: 30 Days ; #:90 Tablet; Refill: 5; For: History of CVA (cerebrovascular accident); RACHEL = N; Sent To: [facility] Hypertension 5. From AmLODIPine Besylate 10 MG Oral Tablet TAKE 1 TABLET BY MOUTH EVERY DAY To AmLODIPine Besylate 5 MG Oral Tablet TAKE 1 TABLET DAILY DIRECTED Rx By: Misael Maradiaga; Dispense: 30 Days ; #:30 Tablet; Refill: 5; For: Hypertension; RACHEL = N; Record Seizures 6. From Dilantin 100 MG Oral Capsule TAKE 1 CAPSULE 3 TIMES DAILY To Phenytoin Sodium Extended 100 MG Oral Capsule (Dilantin) TAKE 1 CAPSULE 3 TIMES DAILY Rx By: Misael Maradiaga; Dispense: 30 Days ; #:90 Capsule; Refill: 5; For: Seizures; RACHEL = N; Sent To: [facility] 7. Neurology Referral. Outpatient 55 with hx of SZ d/o since 1991, on dilantin and keppra, last SZ in Feb 2015 where he was treated wtih Dr Hanocck, send to Dr Hancock/neurology for further eval and tx and continuity of care Status: Hold For - Manual Activation Requested for: [id number] Ordered; For: Seizures; Ordered By: Misael Maradiaga Performed: Due: 07Aug2015 of Visits Requested : 99 Unlinked 8. PROzac 20 MG Oral Capsule (FLUoxetine HCl) Dispense: 0 Days ; #: Sufficient Capsule; Refill: 0; RACHEL = N; Record; Last Updated By: Misael Maradiaga; 07/24/2015 2:09:22 PM Discussion/Summary new pt eval requesting previous PCM notes SZ d/o refilled dilantin referral to Neuro made cont keppra as well HTN not controlled will restart CCB but at lower than previous dose f/u 3 mos Hx of CVA left him imbalance cont home PT to work on this needs to be on statin, will start this was on pravastin previously but has not takne for several mos as he did not have refill anxiety stable, no longer on meds will DC off list spoke with pt regarding seriousness of his medical problems impressions and risk factor reductions and potential morbidity and mortality advised to abstain from etoh and smoking f/u 3 mos Signatures Electronically signed by : Misael Maradiaga D.O.; Jul 24 2015 2:47PM DRY MOLDER (Author) documented in this encounter Plan of Treatment Not on file documented as of this encounter Visit Diagnoses Not on filedocumented in this encounter Care Teams Construction Driver Relationship Specialty Start Date End Date Misael Maradiaga DO PCP - General FAMILY PRACTICE 05/30/16 06/22/16 Kayla Por[place] [address] PCP - General 06/25/16 09/27/18 Kayla Porras NP [address] [place] [address] PCP - General 06/24/16 06/24/16 Kayla Porras, BOUCHRA [address] [address] PCP - General 06/23/16 06/23/16 Kayla Porras, BOUCHRA [address] [address] PCP - General 02/11/16 05/29/16 Misael Maradiaga DO PCP - General 02/02/16 02/10/16 Burke Restrepo MD [address] [address] PCP - General 05/15/15 02/01/16 Frank Toure MD [address] [place] [address] [employer] Licensed Master Social Worker CARDIOVASCULAR DISEASE 05/30/16 documented as of this encounter
--- OUTSIDE RECORDS SUMMARY | 2024-06-08 05:54 | XMS_ITS | Encounter Summary ---
Author Organization [facility] Address [address] [facility]. [place], [place] [address] [place] [address] Care Team Providers Care Toby Maker Name Role Phone Misael Maradiaga DO Primary Care Provider + [phone] Frank Toure MD Unavailable Vern, Kayla CPR INSTRUCTOR Primary Care Provider [phone] Vern, Kayla CPR INSTRUCTOR Primary Care Provider [phone] Vern, Kayla CPR INSTRUCTOR Primary Care Provider [phone] Vern, Kayla CPR INSTRUCTOR Primary Care Provider [phone] Misael Maradiaga DO Primary Care Provider + [phone] Burke Restrepo MD Primary Care Provider + [phone] Encounter Details Date Type Department Care Team (Latest Contact Info) Description 06/25/2015 Abstract [facility] Misael Maradiaga DO [address] [phone] Social History Tobacco Use Types Packs/Day Years [...] on filedocumented in this encounter Care Teams Toby Maker Relationship Specialty Start Date End Date Misael Maradiaga DO PCP - General FAMILY PRACTICE 05/30/16 06/22/16 Kayla Porras NP [address] [facility] [address] PCP - General 06/25/16 09/27/18 Kayla Porras NP [address] [facility] [address] PCP - General 06/24/16 06/24/16 Kayla Porras NP [address] [facility] [id number] PCP - General 06/23/16 06/23/16 Kayla Porras NP [address] [facility] [place] [address] PCP - General 02/11/16 05/29/16 Misael Maradiaga DO PCP - General 02/02/16 02/10/16 Burke Restrepo MD [address] [facility] [address] PCP - General 05/15/15 02/01/16 Frank Toure MD [address] [place] [address] [place] Manager Fire CARDIOVASCULAR DISEASE 05/30/16 documented as of this encounter
--- OUTSIDE RECORDS SUMMARY | 2024-06-08 05:54 | XMS_ITS | Encounter Summary ---
Author Organization [facility] Address [address] [facility] [place] [address] [place] [address] Care Team Providers Care Sales And Merchandising Associate Name Role Phone Frank Toure MD Unavailable Kayla Porras NP Primary Care Provider [phone] Encounter Details Date Type Department Care Team (Latest Contact Info) Description 11/13/2016 Abstract [facility] Social History Tobacco Use [...] in this encounter Care Teams Sales And Merchandising Associate Relationship Specialty Start Date End Date [place] [address] PCP - General 06/25/16 09/27/18 Frank Toure MD [address] [place] [address] [employer]ivo Documentation Engineer CARDIOVASCULAR DISEASE 05/30/16 documented as of this encounter
--- OUTSIDE RECORDS SUMMARY | 2024-06-08 05:54 | XMS_ITS | Encounter Summary ---
Author Organization [facility] Address [address] [facility] [address] [place] [address] Care Team Providers Care Oracle Soa Developer Name Role Phone Frank Toure MD Unavailable Kayla Porras NP Primary Care Provider [phone] Encounter Details Date Type Department Care Team (Late st Contact Info) Description 07/21/2016 Abstract [facility] Family Medicine - [address] [phone] Misael Arboleda, [address] [place] [phone] Social History Tobacco Use Types Packs/Day Years Used Date Smoking Tobacco: Never Assessed Sex and Gender Information Value Date Recorded Sex Assigned at Not on file Legal Sex Male 10:23 PM CDT Gender Identity Not on file Sexual Orientation Not on file documented as of this encounter Last Filed Vital Signs Vital Sign Reading Time Taken Comments Blood Pressure 129/86 07/21/2016 10:40 AM DOCK WORKER Pulse 80 07/21/2016 10:40 AM DOCK WORKER Temperature - - Respiratory Rate - - Oxygen Saturation - - Inhaled Oxygen Concentration - - Weight 62.1 kg (137 lb) 07/21/2016 10:40 AM DOCK WORKER Height 175.3 cm (5' 9 ) 07/21/2016 10:40 AM DOCK WORKER Body Mass Index 20.23 07/21/2016 10:40 AM DOCK WORKER documented in this encounter Functional Status documented as of this encounter Mental Status * Question Answer Entry Date Author Status Because of a physical, mental, or emotional condition, do you have serious difficulty concentrating, remembering, or making decisions? No 08/28/2017 2:38 PM CDT Loraine Staley RN A ctive documented in this encounter Progress Notes * Misael Arboleda, DO - 07/21/2016 10:15 AM CST History of Present Illness cc: LBP last 4 days slept on couch 3 nights in row since then, has had LBP dull ache, non radiating mid lower back denies any N/T or fevers or chills has used naprosyn in the past and this has helped needs more of this Review of systems General: denies any fevers, [...] and rhythm without murmurs, clicks or bruits. back: no bony TTP, able to reproduce back pain with forward flexion, and lumbar rotation, neg SLR Extremities: No clubbing, cyanosis, or edema noted. Pulses 2+. Neuro: grossly intact. Psych: Normal mood, normal [...] 9. Seizures (780.39) (R56.9) Past Medical History ?? [...] Days ; #: Sufficient CAPS; Refill: 0; ARCHEL = N; Record; Last Updated By: Patricia Camilo; 09/25/2015 2:45:27 PM 2. AmLODIPine Besylate 10 MG Oral Tablet; TAKE 1 TABLET DAILY FOR BLOOD PRESSURE Requested for: 26Apr2016; Last Rx:26Apr2016 Ordered Rx By: Misael Arboleda; Dispense: 90 Days ; #:90 Tablet; Refill: 3; For: Hypertension; RACHEL = N; Verified Transmission to [facility]; Last Updated By: Startup[employer]; 04/26/2016 1:57:00 PM 3. Aspirin 81 MG Oral Tablet Delayed Release; TAKE 1 TABLET DAILY DIRECTED; Therapy: 28Jun2016 to (Evaluate:88Prn9282) Requested for: 28Jun2016; Last Rx:28Jun2016 Ordered Rx By: Misael Arboleda; Dispense: 90 Days ; #:90 Tablet Delayed Release; Refill: 1; For: Hyperlipidemia; RACHEL = N; Verified Transmission to [facility] 73270; Last Updated By: StartupBlink; 06/28/2016 3:12:29 PM 4. Atorvastatin Calcium 40 MG Oral Tablet; TAKE 1 TABLET DAILY DIRECTED Requested for: 08Jul2016; Last Rx:08Jul2016 Ordered Rx By: iMsael Arboleda; Dispense: 90 Days ; #:90 Tablet; Refill: 1; For: Hyperlipidemia; RACHEL = N; Verified Transmission to [facility]; Last Updated By: StartupBlink; 07/08/2016 3:47:52 PM 5. LevETIRAcetam 750 MG Oral Tablet; take 2 tablets bid; Therapy: 63Gma0988 to (Evaluate:31Jul2016) Requested for: 10Rwy0968; Last Rx:[id number]; Status: ACTIVE - Renewal Denied Ordered Rx By: Misael Arboleda; Dispense: 30 Days ; #:120 Tablet; Refill: 0; For: Seizures; RACHEL = N; Transmitted To: [facility]; Msg to Pharmacy: LAST FILL FROM DR ARBOLEDA - NEEDS TO COME FROMNEUROLOGY; Last Updated By: Philly Truong; 07/02/2016 9:02:29 AM 6. Tamsulosin HCl - 0.4 MG Oral Capsule; Take 1 cap daily Requested for: 01Jul2016; Last Rx:[id number] Ordered Rx By: Misael Arboleda; Dispense: 0 Days ; #:90 Capsule; Refill: 1; For: Health Maintenance; RACHEL = N; Verified Transmission to [facility]; Last Updated By: Start[employer]link; 07/01/2016 1:26:16 PM Allergies 1. No Known Drug Allergies Recorded By: Dina Dennis; 07/24/2015 1:54:45 PM Immunizations 1 Influenza 23Jun2016 Vitals Recorded: 21Jul2016 10:40AM Heart Rate 80 Systolic 129 Diastolic 86 Height 5 ft 9 in Weight 137 lb BMI Calculated 20.23 BSA Calculated 1.76 Assessment 1. Low back pain (724.2) (M54.5) Plan Low back pain ?? Naproxen 500 MG Oral Tablet; TAKE 1 TABLET EVERY 12 HOURS NEEDED Rx By: Misael Arboleda; Dispense: 15 Days ; #:30 Tablet; Refill: 0; For: Low back pain; RACHLE = N; Verified Transmission to [facility]; Last Updated By: Start[employer]Blink; 07/21/2016 11:07:01 AM Discussion/Summary LBP given handout for home stretches avoid sleeping on couch ok for prn napoxen he will f/u if not better he will call of symptoms worsen Signatures Electronically signed by : Misael Arboleda D.O.; Jul 21 2016 11:45AM DOCK WORKER (Author) documented in this encounter Plan of Treatment Not on file documented as of this encounter Visit Diagnoses Not on filedocumented in this encounter Care Teams Oracle Soa Developer Relationship Specialty Start Date End Date [place] [address] PCP - General 06/25/16 09/27/18 Frank Toure MD [address] [place] [address] Chivo Tractor Driver CARDIOVASCULAR DISEASE 05/30/16 documented as of this encounter
--- OUTSIDE RECORDS SUMMARY | 2024-06-08 05:54 | XMS_ITS | Encounter Summary ---
Author Organization [facility] Address [address] [facility]. [place], [place] [address] [place] [address] Care Team Providers Care Hot Box Checker Name Role Phone Misael Maradiaga DO Primary Care Provider [phone] Frank Toure MD Unavailable Vern, Kayla LETTER OF CREDIT DOCUMENT EXAMINER Primary Care Provider [phone] Vern, Kayla LETTER OF CREDIT DOCUMENT EXAMINER Primary Care Provider [phone] Vern, Kayla LETTER OF CREDIT DOCUMENT EXAMINER Primary Care Provider [phone] Vern, Kayla LETTER OF CREDIT DOCUMENT EXAMINER Primary Care Provider [phone] Misael Maradiaga DO Primary Care Provider + [phone] Burke Restrepo MD Primary Care Provider + [phone] Encounter Details Date Type Department Care Team (Latest Contact Info) Description 08/15/2015 Abstract [facility] Medical Group [...] filedocumented in this encounter Care Teams Hot Box Checker Relationship Specialty Start Date End Date Misael Maradiaga DO PCP - General FAMILY PRACTICE 05/30/16 06/22/16 Kayla Porras NP [address] [place] [address] PCP - General 06/25/16 09/27/18 Kayla Porras NP [address] [place] [address] PCP - General 06/24/16 06/24/16 Kayla Porras NP [address] [place] [address] PCP - General 06/23/16 06/23/16 Kayla Porras NP [address] [place] [address] PCP - General 02/11/16 05/29/16 Misael Maradiaga DO PCP - General 02/02/16 02/10/16 Burke Restrepo MD [address] [place] [address] PCP - General 05/15/15 02/01/16 Frank Toure MD [address] [place] [address] Chivo Aluminum Pourer CARDIOVASCULAR DISEASE 05/30/16 documented as of this encounter
--- OUTSIDE RECORDS SUMMARY | 2024-06-08 05:54 | XMS_ITS | Encounter Summary ---
Author Organization [facility] Address [address] [facility]. [place], [place] [address] [place] [address] Care Team Providers Care Shank Faker Name Role Phone Misael Maradiaga DO Primary Care Provider + [phone] Frank Toure MD Unavailable Vern, Kayla APPLICATION TECHNICAL DESIGNER Primary Care Provider [phone] Vern, Kayla APPLICATION TECHNICAL DESIGNER Primary Care Provider [phone] Vern, Kayla APPLICATION TECHNICAL DESIGNER Primary Care Provider [phone] Vern, Kayla APPLICATION TECHNICAL DESIGNER Primary Care Provider [phone] Misael Maradiaga DO Primary Care Provider + [phone] Burke Restrepo MD Primary Care Provider + [phone] Encounter Details Date Type Department Care Team (Latest Contact Info) Description 09/24/2015 Abstract [facility] Medical Group Misael Maradiaga DO [address] [phone] Social History Tobacco Use Types Packs/Day Years [...] on filedocumented in this encounter Care Teams Shank Faker Relationship Specialty Start Date End Date Misael Maradiaga DO PCP - General FAMILY PRACTICE 05/30/16 06/22/16 Kayla Porras NP [address] [place] [address] PCP - General 06/25/16 09/27/18 Kayla Porras NP [address] [address] PCP - General 06/24/16 06/24/16 Kayla Porras NP [address] [facility] [place] [id number] PCP - General 06/23/16 06/23/16 Kayla Porras NP [address] [address] PCP - General 02/11/16 05/29/16 Misael Maradiaga DO PCP - General 02/02/16 02/10/16 Burke Restrepo MD [address] [address] PCP - General 05/15/15 02/01/16 Frank Toure MD [address] [place] [address] [place] Supervisor Newspaper Deliveries CARDIOVASCULAR DISEASE 05/30/16 documented as of this encounter
--- OUTSIDE RECORDS SUMMARY | 2024-06-08 05:54 | XMS_ITS | Encounter Summary ---
Author Organization [facility] Address [address] [facility]. [place], [place] [address] [place] [address] Care Team Providers Care Home Appliance Washing Machine Mechanic Name Role Phone Frank Toure MD Unavailable Kayla Porras NP Primary Care Provider [phone] Encounter Details Date Type Department Care Team (Latest Contact Info) Description 11/16/2016 Abstract [facility] Medical Group Social History Tobacco Use [...] Procedure Notes * Misael Maradiaga, - 11/16/2016 12:22 PM [address]T [address] [address] Patient: BI TABOR Med Rec#: [id number] Birthdate: 1960 Admit/Svce Date: 11/13/2016 Disch Date: Attending Md: PRASHANT GODFREY MD Accession Number [id number] CHART DOCUMENT LOG NUMBER 445. CLINICAL HISTORY: SEIZURE, POOR COMPLIANCE. THIS IS A ROUTINE 20 CHANNEL DIGITAL EEG. THE BACKGROUND CONSISTS OF WELL-FORMED 8-9 HERTZ ALPHA ACTIVITY WITH SOME INTERMIXED LOW-VOLTAGE FASTER ACTIVITY. THE RECORD IS SYMMETRICAL WITH NO FOCAL OR PAROXYSMAL FEATURES. HYPERVENTILATION AND PHOTIC STIMULATION REVEALED NO ABNORMALITY. IMPRESSION NORMAL RECORD. Electronically Signed By: JOAO CRAWFORD M.D. 11/17/2016 05:10 P JOAO CRAWFORD M.D. P #[id number] P/ma cc: Malena RICHARDSON M.D. PANDURANGA KINI, M.D. ROOP LAL, M.D. ANTHONY L. TRUONG, D.O. documented in this encounter Consult Notes * Misael Maradiaga DO - 11/16/2016 11:20 AM CDT [place] [address] Patient: BI TABOR [facility] Rec#: [id number] Birthdate: 1960 Admit/Svce Date: 11/13/2016 Disch Date: Attending Md: PRASHANT GODFREY MD CHART DOCUMENT DATE OF CONSULTATION: 11/16/2016 REFERRING [...] and cognitive status. Electronically Signed By: JOAO CRAWFORD M.D. 11/17/2016 05:05 P JOAO CRAWFORD M.D. A #[id number] P/aramis cc: Malena RICHARDSON M.D. PANDURANGA KINI, M.D. ANTHONY L. TRUONG, D.O. documented in this encounter Plan of Treatment Not on file documented as of this encounter Visit Diagnoses Not on filedocumented in this encounter Care Teams Home Appliance Washing Machine Mechanic Relationship Specialty Start Date End Date Kayla [place] [address] [place] [address] PCP - General 06/25/16 09/27/18 Frank Toure MD [address] [place] [address] Chivo Wire Straightening Machine Operator CARDIOVASCULAR DISEASE 05/30/16 documented as of this encounter
--- OUTSIDE RECORDS SUMMARY | 2024-06-08 05:54 | XMS_ITS | Encounter Summary ---
Author Organization [facility] Address [address] [facility] [place] [address] [place] [address] Care Team Providers Care Felt Pad Cutter Name Role Phone Dany Toure MD Unavailable Kayla Porras NP Primary Care Provider [phone] Encounter Details Date Type Department Care Team (Late st Contact Info) Description 11/16/2016 Orders Only [facility] [address] [place] [phone] Dany Toure MD [address] [place] [address] Social History Tobacco Use Types Packs/Day Years [...] Procedure Name Priority Date/Time Associated Diagnosis Comments NUC MED GENERIC 11/16/2016 2:22 PM CDT documented in this encounter Results * NUC MED GENERIC (11/16/2016 2:22 PM CDT) 11/16/2016 2:22 PM CDT Narrative [facility] - 11/16/2016 12:00 AM CDT BI TABOR ? Admit/Service Date: 11/13/16 ?? Acct: [id number] ?Discharge Date: ?? : 1960 ??Sex: M ?Ord Site: [facility] ?? Pt Type: ADM IN ? Ordering MD: DANY TOURE MD ? Study Date ? Report # ?Order # ? Ext Order ID ?? 11/16/16 ? [id number] ? [id number] ?[id number] ? Proc Code: ? MYOCARDRS ? Procedure Description: ?? NM Myocard Perf Strs Rst SPECT ? IMPRESSION: ?? 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 ? No reversible ischemia. ? Examination: Myocardial perfusion stress/rest spect ? Exam date/time: 11/16/2016 12:26 PM ? Clinical history: Seizure, abnormal EKG, chest pain, hypertension ? Comparison: None ? Technique: ??After intravenous injection of 11 MCI of 99M technetium ?? labeled Myoview, multiplanar spect imaging was performed through the ?? heart during a period of resting. After ? intravenous administration ?? of 0.4 mg of Lexiscan, the patient received an additional 35 MCI of ?? Myoview and both multiplanar spect and gated images were then obtained. ?? Ejection fraction and wall motion was performed. ??Prone imaging was also ?? performed ? Findings: ? Ejection fraction: 52% ?? The end diastolic volume is 97 millimeters ?? The end systolic volume is 47 millimeters ?? Wall motion: There is hypokinesis involving the apex of the left ?? ventricle ?? The TID value is 0.95 ?There is absence of the isotope activity during stress and rest imaging ?? involving the apex of the left ventricle extending to the septum. ?? Findings are consistent with underlying infarct. There are no additional ?? perfusion abnormality seen to suggest areas of reversible ischemia. ? Electronically Signed By: Feliciano Mahajan11/16/2016 2:25 PM ? 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 No reversible ischemia. Examination: Myocardial perfusion stress/rest spect Exam date/time: 11/16/2016 12:26 PM Clinical history: Seizure, abnormal EKG, chest pain, hypertension Comparison: None Technique: After intravenous injection of 11 MCI of 99M technetium labeled Myoview, multiplanar spect imaging was performed through the heart during a period of resting. After intravenous administration of 0.4 mg of Lexiscan, the patient received an additional 35 MCI of Myoview and both multiplanar spect and gated images were then obtained. Ejection fraction and wall motion was performed. Prone imaging was also performed Findings: Ejection fraction: 52% The end diastolic volume is 97 millimeters The end systolic volume is 47 millimeters Wall motion: There is hypokinesis involving the apex of the left ventricle The TID value is 0.95 There is absence of the isotope activity during stress and rest imaging involving the apex of the left ventricle extending to the septum. Findings are consistent with underlying infarct. There are no additional perfusion abnormality seen to suggest areas of reversible ischemia. Electronically Signed By: Feliciano Mahajan11/16/2016 2:25 PM Dany Toure MD [facility] Final Result [facility] documented in this encounter Visit Diagnoses Not on filedocumented in this encounter Care Teams Felt Pad Cutter Relationship Specialty Start Date End Date Kayla [place] [address] PCP - General 06/25/16 09/27/18 Dany Toure MD [address] [place] [address] [place] Soft Tile Setter CARDIOVASCULAR DISEASE 05/30/16 documented as of this encounter
--- OUTSIDE RECORDS SUMMARY | 2024-06-08 05:54 | XMS_ITS | Encounter Summary ---
Author Organization [facility] Address [address] [facility]. [place], [place] [address] [place] [address] Care Team Providers Care Liner Assembler Name Role Phone Misael Maradiaga DO Primary Care Provider + [phone] Frank Toure MD Unavailable Vern, Kayla OCCASIONAL BABYSITTER Primary Care Provider [phone] VernKayla lopez OCCASIONAL BABYSITTER Primary Care Provider [phone] Kayla Porras OCCASIONAL BABYSITTER Primary Care Provider [phone] VernKayla lopez OCCASIONAL BABYSITTER Primary Care Provider [phone] Misael Maradiaga DO Primary Care Provider + [phone] Encounter Details Date Type Department Care Team (Late st Contact Info) Description 02/02/2016 Abstract [facility] A [address] [place] [address] Jerica Olsen MD Musumbi, Martin, MD Social History Tobacco Use Types Packs/Day [...] Date/Time Associated Diagnosis Comments BASIC METABOLIC PANEL TIMED 02/04/2016 4:44 AM CDT CBC W/DIFF AUTOMATED TIMED 02/04/2016 4:44 AM CDT PHOSPHORUS, INORGANIC PHOSPHATE TIMED 02/04/2016 4:44 AM CDT MAGNESIUM TIMED 02/04/2016 4:44 AM CDT BASIC METABOLIC PANEL TIMED 02/03/2016 5:17 AM CDT CBC W/DIFF AUTOMATED TIMED 02/03/2016 5:17 AM CDT PHOSPHORUS, INORGANIC PHOSPHATE TIMED 02/03/2016 5:17 AM CDT MAGNESIUM TIMED 02/03/2016 5:17 AM CDT CK (CPK) TIMED 02/03/2016 5:17 AM CDT TSH W/REFLEX STAT 02/02/2016 8:28 PM CDT COMPREHENSIVE METABOLIC PANEL STAT 02/02/2016 8:28 PM CDT CBC W/DIFF AUTOMATED STAT 02/02/2016 8:28 PM CDT PHOSPHORUS, INORGANIC PHOSPHATE STAT 02/02/2016 8:28 PM CDT MAGNESIUM STAT 02/02/2016 8:28 PM CDT CK (CPK) STAT 02/02/2016 8:28 PM CDT MRSA SCREENING Routine 02/02/2016 6:25 PM CDT documented in this encounter Results * PHOSPHORUS, INORGANIC PHOSPHATE (02/04/2016 4:44 AM CDT) PHOSPHORUS 2.9 2.7 - 4.5 mg/dL 02/04/2016 5:[address] [facility] SERUM OR PLASMA SPECIMEN / Unknown 02/04/2016 4:44 AM CDT 02/04/2016 4:46 AM CDT Generic Conversion Md [facility] Performing Organization Address City/[facility]/ZIP Co de Phone Number [facility] [address] [address], [place] [phone] * MAGNESIUM (02/04/2016 4:44 AM CDT) MAGNESIUM 1.7 1.70 - 2.55 mg/dL 02/04/2016 5:54 AM CDT [facility] SERUM OR PLASMA SPECIMEN / Unknown 02/04/2016 4:44 AM CDT 02/04/2016 4:46 AM CDT Generic Conversion Md [facility] Final R [place] Performing Organization Address City/[facility] Co de Phone Number [facility] [address] [place] [address], [place] [phone] * (ABNORMAL) CBC W/DIFF AUTOMATED (02/04/2016 4:44 AM CDT) WBC 6.7 4.8 - 10.8 X10'3/uL 02/04/2016 6:00 AM CDT [facility] RBC 4.21(L) 4.70 - 6.10 X10'6/uL 02/04/2016 6:00 AM CDT [facility] HGB 13.7(L) 14.0 - 18.0 g/dL 02/04/2016 6:00 AM CDT [facility] HCT 40.4(L) 43.0 - 54.0 % 02/04/2016 6:00 AM CDT [facility] MCV 96.0(H) 80.0 - 94.0 fL 02/04/2016 6:00 AM CDT [facility] MCH 32.5(H) 27.0 - 31.0 pg 02/04/2016 6:00 AM CDT [facility] MCHC 33.9 32.0 - 36.0 g/dL 02/04/2016 6:00 AM CDT [facility] RDW 11.6 11.5 - 14.5 % 02/04/2016 6:00 AM CDT [facility] PLT 197 130 - 400 X10'3/uL 02/04/2016 6:00 AM CDT [facility] MPV 11.7 9.3 - 12.2 fL 02/04/2016 6:00 AM CDT [facility] DIFFERENTIAL TYPE AUTOMATED 02/04/2016 6:00 AM CDT [facility] NEUTROPHILS % 47.6 43.0 - 65.0 % 02/04/2016 6:00 AM CDT [facility] LYMPHOCYTES % 42.4 20.0 - 46.0 % 02/04/2016 6:00 AM CDT [facility] MONOCYTES % 7.8 5.0 - 12.0 % 02/04/2016 6:00 AM CDT [facility] EOSINOPHILS 1.8 1.0 - 3.0 % 02/04/2016 6:00 AM CDT [facility] BASOPHILS 0.3 0.0 - 1.0 % 02/04/2016 6:00 AM CDT [facility] IMMATURE GRANS % 0.1 0.0 - 1.0 % 02/04/2016 6:00 AM CDT [facility] 02/04/2016 4:4 4 AM CDT 02/04/2016 4:46 AM CDT us Generic Conversion Md [facility] Final R esult [facility] [address] [place] [address], [place] [phone] * BASIC METABOLIC PANEL (02/04/2016 4:44 AM CDT) [facility] GLUCOSE 96 70 - 99 mg/dL 02/04/2016 5:54 AM CDT [facility] BUN 10 8 - 23 mg/dL 02/04/2016 5:54 AM CDT [facility] CREATININE S/P/B 0.76 0.70 - 1.20 mg/dL 02/04/2016 5:54 AM CDT [facility] SODIUM S/P/B 141 136 - 145 mmol/L 02/04/2016 5:54 AM T [facility] POTASSIUM S/P/B 3.9 3.5 - 5.1 mmol/L 02/04/2016 5:54 AM CDT [facility] CHLORIDE S/P/B 105 98 - 107 mmol/L 02/04/2016 5:54 AM CDT [facility] CO2 26 22 - 29 mmol/L 02/04/2016 5:54 AM T [facility] CALCIUM S/P/B 9.1 8.6 - 10.2 mg/dL 02/04/2016 5:54 AM CDT [facility] ANION GAP 14 8 - 20 02/04/2016 5:54 AM CDT [facility] EGFR NON-AFR. AMER. >60 >60 mL/min/1.7 3m'2 02/04/2016 5:54 AM CDT [facility] EGFR AFR. AMER. >60 >60 mL/min/1.7 3m'2 02/04/2016 5:54 AM T [facility] Comment: NOTE: eGFR is not calculated for patients <18 years of age. This is an estimated GFR (CKD EPI) and should not be used for calculating drug doses. 02/04/2016 4:44 AM CDT 02/04/2016 4:46 AM CDT us Generic Conversion Md [facility] Performing Organization Address [facility]/ZIP Co de Phone Number [facility] [address] [place] [address], * PHOSPHORUS, INORGANIC PHOSPHATE (02/03/2016 5:17 AM CDT) PHOSPHORUS 2.9 2.7 - 4.5 mg/dL 02/03/2016 5:55 AM CDT [facility] SERUM OR PLASMA SPECIMEN / Unknown 02/03/2016 5:17 AM CDT 02/03/2016 5:24 AM CDT us Generic Conversion Md [facility] Final R esamirah Performing Organization Address [facility] Co de Phone Number [facility] [address] [place] [address], * MAGNESIUM (02/03/2016 5:17 AM CDT) MAGNESIUM 1.7 1.70 - 2.55 mg/dL 02/03/2016 5:55 AM CDT [facility] SERUM OR PLASMA SPECIMEN / Unknown 02/03/2016 5:17 AM CDT 02/03/2016 5:24 AM CDT us Generic Conversion Md [facility] Final R esult Performing Organization Address [facility] Co de Phone Number [facility] [address] [place] [address], [place] [phone] * (ABNORMAL) CK (CPK) (02/03/2016 5:17 AM CDT) CPK 665(H) 39 - 308 U/L 02/03/2016 5:55 AM CDT [facility] SERUM OR PLASMA SPECIMEN / Unknown 02/03/2016 5:17 AM CDT 02/03/2016 5:24 AM CDT us Generic Conversion Md [facility] Final R esult [facility] [address] [place] [address], * (ABNORMAL) CBC W/DIFF AUTOMATED (02/03/2016 5:17 AM CDT) WBC 7.4 4.8 - 10.8 X10'3/uL 02/03/2016 6:00 AM CDT [facility] RBC 4.24(L) 4.70 - 6.10 X10'6/uL 02/03/2016 6:00 AM CDT [facility] HGB 13.9(L) 14.0 - 18.0 g/dL 02/03/2016 6:00 AM CDT [facility] HCT 41.0(L) 43.0 - 54.0 % 02/03/2016 6:00 AM CDT [facility] MCV 96.7(H) 80.0 - 94.0 fL 02/03/2016 6:00 AM CDT [facility] MCH 32.8(H) 27.0 - 31.0 pg 02/03/2016 6:00 AM CDT [facility] MCHC 33.9 32.0 - 36.0 g/dL 02/03/2016 6:00 AM CDT [facility] RDW 11.6 11.5 - 14.5 % 02/03/2016 6:00 AM CDT [facility] PLT 200 130 - 400 X10'3/uL 02/03/2016 6:00 AM CDT [facility] MPV 11.4 9.3 - 12.2 fL 02/03/2016 6:00 AM CDT [facility] DIFFERENTIAL TYPE AUTOMATED 02/03/2016 6:00 AM CDT [facility] NEUTROPHILS % 60.0 43.0 - 65.0 % 02/03/2016 6:00 AM CDT [facility] LYMPHOCYTES % 30.6 20.0 - 46.0 % 02/03/2016 6:00 AM CDT [facility] MONOCYTES % 7.6 5.0 - 12.0 % 02/03/2016 6:00 AM CDT [facility] EOSINOPHILS 1.4 1.0 - 3.0 % 02/03/2016 6:00 AM CDT [facility] BASOPHILS 0.3 0.0 - 1.0 % 02/03/2016 6:00 AM CDT [facility] IMMATURE GRANS % 0.1 0.0 - 1.0 % 02/03/2016 6:00 AM CDT [facility] 02/03/2016 5:17 AM CDT 02/03/2016 5:24 AM CDT us Generic Conversion Md [facility] Final R esult [facility] [address] [place] [address], * (ABNORMAL) BASIC METABOLIC PANEL (02/03/2016 5:17 AM CDT) GLUCOSE 103(H) 70 - 99 mg/dL 02/03/2016 5:55 AM CDT [facility] BUN 9 8 - 23 mg/dL 02/03/2016 5:55 AM CDT [facility] CREATININE S/P/B 0.75 0.70 - 1.20 mg/dL 02/03/2016 5:55 AM CDT [facility] SODIUM S/P/B 140 136 - 145 mmol/L 02/03/2016 5:55 AM CDT [facility] POTASSIUM S/P/B 3.9 3.5 - 5.1 mmol/L 02/03/2016 5:55 AM CDT [facility] CHLORIDE S/P/B 104 98 - 107 mmol/L 02/03/2016 5:55 AM CDT [facility] CO2 25 22 - 29 mmol/L 02/03/2016 5:55 AM CDT [facility] CALCIUM S/P/B 9.3 8.6 - 10.2 mg/dL 02/03/2016 5:55 AM CDT [facility] ANION GAP 15 8 - 20 02/03/2016 5:55 AM CDT [facility] EGFR NON-AFR. AMER. >60 >60 mL/min/1.7 3m'2 02/03/2016 5:55 AM CDT [facility] EGFR AFR. AMER. >60 >60 mL/min/1.7 3m'2 02/03/2016 5:55 AM CDT [facility] Comment: NOTE: eGFR is not calculated for patients <18 years of age. This is an estimated GFR (CKD EPI) and should not be used for calculating drug doses. 02/03/2016 5:17 AM CDT 02/03/2016 5:24 AM CDT us Generic Conversion Md [facility] Final R esult [facility] [address] [place] [address], * TSH W/REFLEX (SNS) (02/02/2016 8:28 PM CDT) TSH 1.07 0.27 - 4.20 mIU/mL 02/02/2016 9:03 PM CDT [facility] Comment:FREE T4 NOT INDICATE D SERUM OR PLASMA SPECIMEN / Unknown 02/02/2016 8:28 PM CDT 02/02/2016 8:29 PM CDT us Generic Conversion Md [facility] Final R esamirah [facility] [address] [place] [address], [place] [phone] * PHOSPHORUS, INORGANIC PHOSPHATE (02/02/2016 8:28 PM CDT) PHOSPHORUS 3.4 2.7 - 4.5 mg/dL 02/02/2016 9:27 PM CDT [facility] SERUM OR PLASMA SPECIMEN / Unknown 02/02/2016 8:28 PM CDT 02/02/2016 8:29 PM CDT us Generic Conversion Md [facility] Final R esamirah Performing Organization Address [facility]/ZIP Co de Phone Number [facility] [address] [place] [address], [place] [phone] * MAGNESIUM (02/02/2016 8:28 PM CDT) MAGNESIUM 1.7 1.70 - 2.55 mg/dL 02/02/2016 9:27 PM CDT [facility] SERUM OR PLASMA SPECIMEN / Unknown 02/02/2016 8:28 PM CDT 02/02/2016 8:29 PM CDT us Generic Conversion Md [facility] Final R esamirah Performing Organization Address City/[facility]/ZIP Co de Phone Number [facility] [address] [address], * (ABNORMAL) CK (CPK) (02/02/2016 8:28 PM CDT) CPK 668(H) 39 - 308 U/L 02/02/2016 9:27 PM CDT [facility] SERUM OR PLASMA SPECIMEN / Unknown 02/02/2016 8:28 PM CDT 02/02/2016 8:29 PM CDT us Generic Conversion Md [facility] Final R esult [facility] [address] [place] [address], * (ABNORMAL) COMPREHENSIVE METABOLIC PANEL (02/02/2016 8:28 PM CDT) GLUCOSE 117(H) 70 - 99 mg/dL 02/02/2016 9:27 PM CDT [facility] BUN 10 8 - 23 mg/dL 02/02/2016 9:27 PM CDT [facility] CREATININE S/P/B 0.68(L) 0.70 - 1.20 mg/dL 02/02/2016 9:27 PM CDT [facility] SODIUM S/P/B 136 136 - 145 mmol/L 02/02/2016 9:27 PM CDT [facility] POTASSIUM S/P/B 4.1 3.5 - 5.1 mmol/L 02/02/2016 9:27 PM CDT [facility] CHLORIDE S/P/B 99 98 - 107 mmol/L 02/02/2016 9:27 PM CDT [facility] CO2 25 22 - 29 mmol/L 02/02/2016 9:27 PM CDT [facility] BILIRUBIN TOTAL S/P/B 0.5 0.2 - 1.2 mg/dL 02/02/2016 9:27 PM T [facility] CALCIUM S/P/B 9.4 8.6 - 10.2 mg/dL 02/02/2016 9:27 PM T [facility] ALKALINE PHOSPHATASE S/P/B 84 40 - 129 U/L 02/02/2016 9:27 PM [facility] AST 20 0 - 40 U/L 02/02/2016 9:27 PM T [facility] TOTAL PROTEIN S/P/B 6.6 6.4 - 8.3 g/dL 02/02/2016 9:27 PM T [facility] ALBUMIN S/P/B 4.1 3.5 - 5.2 g/dL 02/02/2016 9:27 PM [facility] ALT 13 0 - 41 U/L 02/02/2016 9:27 PM [facility] GLOBULIN 2.5 2.3 - 3.6 g/dL 02/02/2016 9:27 PM [facility] A/G RATIO 1.6 1.0 - 2.0 02/02/2016 9:27 PM [facility] ANION GAP 16 8 - 20 02/02/2016 9:27 PM [facility] EGFR NON-AFR. AMER. >60 >60 mL/min/1.7 [facility] 02/02/2016 9:27 PM T [facility] EGFR AFR. AMER. >60 >60 mL/min/1.7 [facility] 02/02/2016 9:27 PM [facility] Comment: NOTE: eGFR is not calculated for patients <18 years of age. This is an estimated GFR (CKD EPI) and should not be used for calculating drug doses. 02/02/2016 8:28 PM CDT 02/02/2016 8:29 PM CDT us Generic Conversion Md [facility] Final R esult [facility] [address] [place] [address], * (ABNORMAL) CBC W/DIFF AUTOMATED (02/02/2016 8:28 PM CDT) WBC 10.5 4.8 - 10.8 X10'3/uL 02/02/2016 8:35 PM CDT [facility] RBC 4.30(L) 4.70 - 6.10 X10'6/uL 02/02/2016 8:35 PM CDT [facility] HGB 14.1 14.0 - 18.0 g/dL 02/02/2016 8:35 PM CDT [facility] HCT 40.7(L) 43.0 - 54.0 % 02/02/2016 8:35 PM CDT [facility] MCV 94.7(H) 80.0 - 94.0 fL 02/02/2016 8:35 PM CDT [facility] MCH 32.8(H) 27.0 - 31.0 pg 02/02/2016 8:35 PM CDT [facility] MCHC 34.6 32.0 - 36.0 g/dL 02/02/2016 8:35 PM CDT [facility] RDW 11.5 11.5 - 14.5 % 02/02/2016 8:35 PM CDT [facility] PLT 190 130 - 400 X10'3/uL 02/02/2016 8:35 PM CDT [facility] MPV 10.3 9.3 - 12.2 fL 02/02/2016 8:35 PM CDT [facility] DIFFERENTIAL TYPE AUTOMATED 02/02/2016 8:35 PM CDT [facility] NEUTROPHILS % 71.3(H) 43.0 - 65.0 % 02/02/2016 8:35 PM CDT [facility] LYMPHOCYTES % 21.8 20.0 - 46.0 % 02/02/2016 8:35 PM CDT [facility] MONOCYTES % 6.0 5.0 - 12.0 % 02/02/2016 8:35 PM CDT [facility] EOSINOPHILS 0.6(L) 1.0 - 3.0 % 02/02/2016 8:35 PM CDT [facility] BASOPHILS 0.2 0.0 - 1.0 % 02/02/2016 8:35 PM CDT [facility] IMMATURE GRANS % 0.1 0.0 - 1.0 % 02/02/2016 8:35 PM CDT [facility] 02/02/2016 8:28 PM CDT 02/02/2016 8:29 PM CDT us Generic Conversion Md [facility] Final R esult [facility] [address] [place] [address], * MRSA SCREENING (02/02/2016 6:25 PM CDT) SPEC DESCRIPTION NASAL 02/02/2016 6:54 PM CDT [facility] SPECIAL REQUESTS NO SPECIAL REQUEST 02/02/2016 6:54 PM CDT [facility] CULTURE RESULT NO METHICILLIN RESISTANT STAPH AUREUS ISOLATED 02/04/2016 6:56 AM CDT [facility] SPECIMEN FROM INTERNAL NOSE / Unknown 02/02/2016 6:25 PM CDT 02/02/2016 8:43 PM CDT us Generic Conversion Md [facility]LSEN MICROBIOLOGY - GENERAL ORDERABLES Final Result [facility] [address] [place] [address], documented in this encounter Visit Diagnoses Diagnosis Other sequelae of nontraumatic intracerebral hemorrhage documented in this encounter Care Teams Liner Assembler Relationship Specialty Start Date End Date Misael Maradiaga DO PCP - General FAMILY PRACTICE 05/30/16 06/22/16 Kayla Porras NP [address] [place], [place] [id number] PCP - General 06/25/16 09/27/18 Kayla Porras NP [address] [place] [address] PCP - General 06/24/16 06/24/16 Kayla Porras NP [address] [place] [address] PCP - General 06/23/16 06/23/16 Kyala Porras NP [address] [place] [address] PCP - General 02/11/16 05/29/16 Misael Maradiaga DO PCP - General 02/02/16 02/10/16 Frank Toure MD [address] [place] [address] [place] [employer] Worker CARDIOVASCULAR DISEASE 05/30/16 documented as of this encounter
--- OUTSIDE RECORDS SUMMARY | 2024-06-08 05:54 | XMS_ITS | Encounter Summary ---
Author Organization [facility] Address [address] [place] [address] [place] [address] Care Team Providers Care Military Source Operations Officer Name Role Phone Frank Toure MD Unavailable Kayla Porras NP Primary Care Provider [phone] Encounter Details Date Type Department Care Team (Late st Contact Info) Description 09/13/2016 Abstract [facility] Family Medicine - [address] [phone] Misael Arboleda, [address] [place] [phone] Social History Tobacco Use Types Packs/Day Years Used Date Smoking Tobacco: Never Assessed Sex and Gender Information Value Date Recorded Sex Assigned at Not on file Legal Sex Male 10:23 PM CDT Gender Identity Not on file Sexual Orientation Not on file documented as of this encounter Last Filed Vital Signs Vital Sign Reading Time Taken Comments Blood Pressure 120/77 09/13/2016 2:04 PM CDT Pulse 115 09/13/2016 2:04 PM CDT Temperature - - Respiratory Rate - - Oxygen Saturation - - Inhaled Oxygen Concentration - - Weight 62.6 kg (138 lb) 09/13/2016 2:04 PM CDT Height - - Body Mass Index 20.38 07/21/2016 10:40 AM CHURN TENDER documented in this encounter Functional Status documented as of this encounter Mental Status * Question Answer Entry Date Author Status Because of a physical, mental, or emotional condition, do you have serious difficulty concentrating, remembering, or making decisions? 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 He had SZ about 2 weeks ago [facility] Pt admits he was not taking his meds he was supposed to be on 750 bid, but was only taking 500 now he is at 1000 bid since DC from hospital Pt has about 20 tablets left He has not had any SZ since then He feels great he does not have a license due to SZ His neurologist is Dr Carmen at [facility] He is also here to f/u LBP Since last visit, has been doing much better he is no longer sleeping on couch pain has improved, it is described as dull ache, non radiating mid lower back denies any N/T or fevers or chills he states naprosyn not helping but OTC tylenol nearl resolves symptoms Review of systems General: denies any fevers, [...] (401.9) (I10) 5. Imbalance (781.2) (R26.89) 6. Low back pain (724.2) (M54.5) 7. Need for hepatitis C screening test (V73.89) (Z11.59) 8. Screening for colon cancer (V76.51) (Z12.11) 9. Screening PSA (prostate specific antigen) (V76.44) (Z12.5) 10. Seizures (780.39) (R56.9) Past Medical History 1. [...] Current Meds 1. Acetaminophen 500 MG CAPS; Therapy: (Recorded:25Sep2015) to Recorded 2. AmLODIPine Besylate 10 MG Oral Tablet; TAKE 1 TABLET DAILY FOR BLOOD PRESSURE Requested for: 26Apr2016; Last Rx:26Apr2016 Ordered 3. Aspirin 81 MG Oral Tablet Delayed Release; TAKE 1 TABLET DAILY DIRECTED; Therapy: 28Jun2016 to (Evaluate:[id number]) Requested for: 28Jun2016; Last Rx:28Jun2016 Ordered 4. Atorvastatin Calcium 40 MG Oral Tablet; TAKE 1 TABLET DAILY DIRECTED Requested for: 50Qah7035; Last Rx:[id number] Ordered 5. LevETIRAcetam 1000 MG Oral Tablet; TK 1 T PO BID; Therapy: 29Aug2016 to Recorded 6. LevETIRAcetam 750 MG Oral Tablet; take 2 tablets bid; Therapy: 79Ryh8299 to (Evaluate:31Jul2016) Requested for: 35Amf8808; Last Rx:[id number]; Status: ACTIVE - Renewal Denied Ordered 7. Naproxen 500 MG Oral Tablet; TAKE 1 TABLET EVERY 12 HOURS NEEDED; Therapy: 80Wja6432 to (Evaluate:10Aug2016) Requested for: 10Tjb1338; Last Rx:[id number] Ordered 8. Tamsulosin HCl - 0.4 MG Oral Capsule; Take 1 cap daily Requested for: 11Dnl5881; Last Rx:[id number] Ordered Allergies 1. No Known Drug Allergies Immunizations Influenza --- Series1: 23Jun2016 Vitals Recorded: 65Hku4774 02:04PM Heart Rate 115 Systolic 120 Diastolic 77 Weight 138 lb BMI Calculated 20.38 BSA Calculated 1.76 Assessment 1. Seizures (780.39) (R56.9) 2. Low back pain (724.2) (M54.5) Plan Seizures 1. 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 now must take this without fail or he can have another SZ f/u with Dr Carmen LBP improved now cont with OTC tylenol call if not better Signatures Electronically signed by : Misael Arboleda D.O.; Sep 13 2016 2:24PM CHURN TENDER (Author) documented in this encounter Plan of Treatment Not on file documented as of this encounter Visit Diagnoses Not on filedocumented in this encounter Care Teams [employer] Operations Officer Relationship Specialty Start Date End Date Kay[place] [address] PCP - General 06/25/16 09/27/18 Frank Toure MD [address] [place] [id number] [place] Doll Rep[employer] CARDIOVASCULAR DISEASE 05/30/16 documented as of this encounter
--- OUTSIDE RECORDS SUMMARY | 2024-06-08 05:54 | XMS_ITS | Encounter Summary ---
Author Organization [facility] Address [address] [facility] [place] [address] [place] [address] Care Team Providers Care Paint Trimmer Pipe Bowls Name Role Phone Kayla Porras NP Primary Care Provider + [phone] Misael Maradiaga DO Primary Care Provider + [phone] Ampadu, Burke Esteban MD Primary Care Provider + [phone] Ampacornelius, Burke Esteban MD Primary Care Provider + [phone] Ampacornelius, Burke Esteban MD Primary Care Provider + [phone] Ampadu, Burke Esteban MD Primary Care Provider + [phone] Ampadu, Burke Esteban MD Primary Care Provider + [phone] Encounter Details Date Type Department Care Team (Late st Contact Info) Description 03/13/2015 [facility] [address] [place] [address] Jerica Tsai MD Social History Tobacco Use [...] on filedocumented in this encounter Care Teams Paint Trimmer Pipe Bowls Relationship Specialty Start Date End Date Kayla Porras NP [address] [place] [address] PCP - General 02/11/16 05/29/16 Misael Maradiaga DO [address] [place] [address] PCP - General 02/02/16 02/10/16 Burke Restrepo MD [address] [place] [address] PCP - General 05/15/15 02/01/16 Burke Restrepo MD [address] [place] [address] PCP - General 05/09/15 05/14/15 Burke Restrepo MD [address] [place] [address] PCP - General 05/08/15 05/08/15 Burke Restrepo MD [address] [place] [address] PCP - General 03/19/15 05/07/15 Burke Restrepo MD [address] [place] [address] PCP - General 03/11/15 03/18/15 documented as of this encounter
--- OUTSIDE RECORDS SUMMARY | 2024-06-08 05:54 | XMS_ITS | Encounter Summary ---
Author Organization [facility] Address [address] [facility] [place] [address] [place] [address] Care Team Providers Care Office Systems Technology Instructor Name Role Phone Frank Toure MD Unavailable Kayla Porras NP Primary Care Provider [phone] Encounter Details Date Type Department Care Team (Latest Contact Info) Description 10/01/2016 Abstract [facility] Misael Maradiaga, DO [address] [phone] Social History Tobacco Use Types Packs/Day Years [...] on filedocumented in this encounter Care Teams Office Systems Technology Instructor Relationship Specialty Start Date End Date Kay[place] [address] PCP - General 06/25/16 09/27/18 [place] [address] [place] [address] [employer] General Maintenance Helper CARDIOVASCULAR DISEASE 05/30/16 documented as of this encounter
--- OUTSIDE RECORDS SUMMARY | 2024-06-08 05:54 | XMS_ITS | Encounter Summary ---
Author Organization [facility] Address [address] [facility]. [place], [place] [address] [place] [address] Care Team Providers Care Sand Caster Name Role Phone Misael Maradiaga DO Primary Care Provider + [phone] Frank Toure MD Unavailable Vern, Kayla GENERAL LOT ATTENDANT Primary Care Provider [phone] Vern, Kayla GENERAL LOT ATTENDANT Primary Care Provider [phone] Vern, Kayla GENERAL LOT ATTENDANT Primary Care Provider [phone] Vern, Kayla GENERAL LOT ATTENDANT Primary Care Provider [phone] Misael Maradiaga DO Primary Care Provider + [phone] Burke Restrepo MD Primary Care Provider + [phone] Encounter Details Date Type Department Care Team (Latest Contact Info) Description 11/18/2015 Abstract [facility] Medical Group Misael Maradiaga DO [address] [phone] Social History Tobacco Use Types Packs/Day Years [...] on filedocumented in this encounter Care Teams Sand Caster Relationship Specialty Start Date End Date Misael Maradiaga DO PCP - General FAMILY PRACTICE 05/30/16 06/22/16 Kayla Porras NP [address] [place] [address] PCP - General 06/25/16 09/27/18 Kayla Porras NP [address] [place] [address] PCP - General 06/24/16 06/24/16 Kayla Porras NP [address] [facility], [place] [id number] PCP - General 06/23/16 06/23/16 Kayla Porras NP [address] [place] [address] PCP - General 02/11/16 05/29/16 Misael Maradiaga DO PCP - General 02/02/16 02/10/16 Burke Restrepo MD [address] [place] [address] PCP - General 05/15/15 02/01/16 Frank Toure MD [address] [place] [address] [place] Hat Braider CARDIOVASCULAR DISEASE 05/30/16 documented as of this encounter
--- OUTSIDE RECORDS SUMMARY | 2024-06-08 05:54 | XMS_ITS | Encounter Summary ---
Author Organization [facility] Address [address] [facility] [place] [address] [place] [address] Care Team Providers Care Basket Sorter Name Role Phone Dany Toure MD Unavailable Kayla Porras NP Primary Care Provider [phone] Encounter Details Date Type Department Care Team (Late st Contact Info) Description 11/16/2016 Orders Only [facility] AT [address] [address] [place] [address] Joao Hancock MD [address] [place] [address] Social History Tobacco Use Types Packs/Day Years [...] Procedure Name Priority Date/Time Associated Diagnosis Comments EEG GENERIC 11/16/2016 12:22 PM CDT documented in this encounter Results * EEG GENERIC (11/16/2016 12:22 PM CDT) 11/16/2016 12:2 2 PM CDT Narrative [facility] RAD[facility] - 11/16/2016 12:00 AM CDT ? BI TABOR MD: JOAO HANCOCK MD ?? Acct: [id number] ?? Admit/Service Date: 11/13/16 Discharge Date: ?? : 1960 Pt Type: ADM IN ?? Sex: M Ord [facility] ? Accession Number ?? [id number] ?CHART DOCUMENT ? LOG NUMBER 445. ? CLINICAL HISTORY: ??SEIZURE, POOR COMPLIANCE. ? THIS IS A ROUTINE 20 CHANNEL DIGITAL EEG. ??THE BACKGROUND CONSISTS OF ?? WELL-FORMED 8-9 HERTZ ALPHA ACTIVITY WITH SOME INTERMIXED LOW-VOLTAGE ?? FASTER ACTIVITY. ??THE RECORD IS SYMMETRICAL WITH NO FOCAL OR PAROXYSMAL ?? FEATURES. ??HYPERVENTILATION AND PHOTIC STIMULATION REVEALED NO ?? ABNORMALITY. ?IMPRESSION ? NORMAL RECORD. ? Electronically Signed By: ?? JOAO HANCOCK M.D. 11/17/2016 05:10 P ?? JOAO HANCOCK M.D. ? D: ??11/16/2016 12:22 P ??#[id number] ?? T: ??11/16/2016 08:53 P/ma ? cc: ?JIN QUINTANA M.D. ?PRASHANT GODFREY M.D. ?JOAO HANCOCK M.D. ?DANY TOURE M.D. ?JOSSE ARBOLEDA D.O. ? Procedure Note Joao Hancock MD - 11/17/2016 BI TABOR MD: JOAO HANCOCK MD Acct: [id number] Admit/Service Date: 11/13/16 Discharge Date: : 1960 Pt Type: ADM IN Sex: M Ord Site: [facility] Accession Number [id number] CHART DOCUMENT LOG NUMBER [id number]. CLINICAL HISTORY: SEIZURE, POOR COMPLIANCE. THIS IS A ROUTINE 20 CHANNEL DIGITAL EEG. THE BACKGROUND CONSISTS OF WELL-FORMED 8-9 HERTZ ALPHA ACTIVITY WITH SOME INTERMIXED LOW-VOLTAGE FASTER ACTIVITY. THE RECORD IS SYMMETRICAL WITH NO FOCAL OR PAROXYSMAL FEATURES. HYPERVENTILATION AND PHOTIC STIMULATION REVEALED NO ABNORMALITY. IMPRESSION NORMAL RECORD. Electronically Signed By: JOAO HANCOCK M.D. 11/17/2016 05:10 P JOAO HANCOCK M.D. P #[id number] P/ma cc: Malena RICHARDSON M.D. PANDURANGA KINI, M.D. ROOP LAL, M.D. ANTHONY L. TRUONG, D.O. us Joao Hancock MD [facility] Edited Re sult - Final [facility] RAD[facility]OLOG[facility] documented in this encounter Visit Diagnoses Not on filedocumented in this encounter Care Teams Basket Sorter Relationship Specialty Start Date End Date Kayla Porras NP [place] [id number] PCP - General 06/25/16 09/27/18 Dany Toure MD [address] [place] [address] [employer] Surgical Instrument Maker CARDIOVASCULAR DISEASE 05/30/16 documented as of this encounter
--- OUTSIDE RECORDS SUMMARY | 2024-06-08 05:54 | XMS_ITS | Encounter Summary ---
Author Organization [facility] Address [address] [facility] [place] [address] [place] [address] Care Team Providers Care Microarray Specialist Name Role Phone Misael Maradiaga DO Primary Care Provider + [phone] Frank Toure MD Unavailable Vern, Kayla TIMBER SETTER Primary Care Provider Vern, Kayla TIMBER SETTER Primary Care Provider Vern, Kayla TIMBER SETTER Primary Care Provider Vern, Kayla TIMBER SETTER Primary Care Provider Encounter Details Date Type Department Care Team (Late st Contact Info) Description 02/11/[address] [facility] [place] [address] Misael Maradiaga DO [address] [phone] Social History Tobacco Use Types Packs/Day Years [...] Priority Date/Time Associated Diagnosis Comments COMPREHENSIVE METABOLIC PNL W/LIVER,RENAL Routine 02/11/2016 9:27 AM CDT CBC W/DIFF AUTOMATED Routine 02/11/2016 9:27 AM CDT CK (CPK) Routine 02/11/2016 9:27 AM CDT documented in this encounter Results * CK (CPK) (02/11/2016 9:27 AM CDT) CPK 160 39 - 308 U/L 02/11/2016 8:26 PM CDT [facility] SERUM OR PLASMA SPECIMEN / Unknown 02/11/2016 9:27 AM CDT 02/11/2016 7:30 PM CDT us Generic Conversion Md [facility] Final R esult [facility] [address] [place] [id number], [place] [phone] * (ABNORMAL) COMPREHENSIVE METABOLIC PNL W/LIVER,RENAL (02/11/2016 9:27 AM CDT) GLUCOSE 103(H) 70 - 99 mg/dL 02/11/2016 8:26 PM CDT [facility] BUN 9 8 - 23 mg/dL 02/11/2016 8:26 PM CDT [facility] CREATININE S/P/B 0.72 0.70 - 1.20 mg/dL 02/11/2016 8:26 PM CDT [facility] SODIUM S/P/B 140 136 - 145 mmol/L 02/11/2016 8:26 PM CDT [facility] POTASSIUM S/P/B 4.5 3.5 - 5.1 mmol/L 02/11/2016 8:26 PM CDT [facility] CHLORIDE S/P/B 102 98 - 107 mmol/L 02/11/2016 8:26 PM CDT [facility] CO2 27 22 - 29 mmol/L 02/11/2016 8:26 PM CDT [facility] BILIRUBIN TOTAL S/P/B 0.3 0.2 - 1.2 mg/dL 02/11/2016 8:26 PM T [facility] CALCIUM S/P/B 9.8 8.6 - 10.2 mg/dL 02/11/2016 8:26 PM CDT [facility] ALKALINE PHOSPHATASE S/P/B 90 40 - 129 U/L 02/11/2016 8:26 PM T [facility] AST 17 0 - 40 U/L 02/11/2016 8:26 PM T [facility] TOTAL PROTEIN S/P/B 7.1 6.4 - 8.3 g/dL 02/11/2016 8:26 PM CDT [facility] ALBUMIN S/P/B 4.8 3.5 - 5.2 g/dL 02/11/2016 8:26 PM CDT [facility] ALT 13 0 - 41 U/L 02/11/2016 8:26 PM T [facility] BILIRUBIN DIRECT S/P/B <0.20 0.0 - 0.3 mg/dL 02/11/2016 8:26 PM T [facility] PHOSPHORUS 3.5 2.7 - 4.5 mg/dL 02/11/2016 8:26 PM CDT [facility] BILIRUBIN INDIRECT S/P/B NOT CALCULATED 0.0 - 0.9 mg/dL 02/11/2016 8:26 PM T [facility] GLOBULIN 2.3 2.3 - 3.6 g/dL 02/11/2016 8:26 PM T [facility] A/G RATIO 2.1(H) 1.0 - 2.0 02/11/2016 8:26 PM CDT [facility] ANION GAP 16 8 - 20 02/11/2016 8:26 PM CDT [facility] EGFR NON-AFR. AMER. >60 >60 mL/min/1. 73m'2 02/11/2016 8:26 PM CDT [facility] EGFR AFR. AMER. >60 >60 mL/min/1. 73m'2 02/11/2016 8:26 PM CDT [facility] Comment: NOTE: eGFR is not calculated for patients <18 years of age. This is an estimated GFR (CKD EPI) and should not be used for calculating drug doses. 02/11/2016 9:27 AM CDT 02/11/2016 7:30 PM CDT us Generic Conversion Md [facility] Final R esult [facility] [address] [place] [address], [place] [phone] * (ABNORMAL) CBC W/DIFF AUTOMATED (02/11/2016 9:27 AM CDT) WBC 6.2 4.8 - 10.8 X10'3/uL 02/11/2016 7:43 PM CDT [facility] RBC 4.68(L) 4.70 - 6.10 X10'6/uL 02/11/2016 7:43 PM CDT [facility] HGB 15.1 14.0 - 18.0 g/dL 02/11/2016 7:43 PM CDT [facility] HCT 46.7 43.0 - 54.0 % 02/11/2016 7:43 PM CDT [facility] MCV 99.8(H) 80.0 - 94.0 fL 02/11/2016 7:43 PM CDT [facility] MCH 32.3(H) 27.0 - 31.0 pg 02/11/2016 7:43 PM CDT [facility] MCHC 32.3 32.0 - 36.0 g/dL 02/11/2016 7:43 PM CDT [facility] RDW 12.0 11.5 - 14.5 % 02/11/2016 7:43 PM CDT [facility] PLT 256 130 - 400 X10'3/uL 02/11/2016 7:43 PM CDT [facility] MPV 11.4 9.3 - 12.2 fL 02/11/2016 7:43 PM CDT [facility] DIFFERENTIAL TYPE AUTOMATED 02/11/2016 7:43 PM CDT [facility] NEUTROPHILS % 59.9 43.0 - 65.0 % 02/11/2016 7:43 PM CDT [facility] LYMPHOCYTES % 27.4 20.0 - 46.0 % 02/11/2016 7:43 PM CDT [facility] MONOCYTES % 8.5 5.0 - 12.0 % 02/11/2016 7:43 PM CDT [facility] EOSINOPHILS 3.7(H) 1.0 - 3.0 % 02/11/2016 7:43 PM CDT [facility] BASOPHILS 0.3 0.0 - 1.0 % 02/11/2016 7:43 PM CDT [facility] IMMATURE GRANS % 0.2 0.0 - 1.0 % 02/11/2016 7:43 PM CDT [facility] 02/11/2016 9:27 AM CDT 02/11/2016 7:30 PM CDT us Generic Conversion Md [facility] Final R esult [facility] [address] [place] [address], documented in this encounter Visit Diagnoses Diagnosis Convulsions (CMS/HCC HHS/HCC) Other convulsions documented in this encounter Care Teams Microarray Specialist Relationship Specialty Start Date End Date Misael Maradiaga DO PCP - General FAMILY PRACTICE 05/30/16 06/22/16 Kayla Porras NP [address] [place] [address] PCP - General 06/25/16 09/27/18 Kayla Porras NP [address] [place] [address] PCP - General 06/24/16 06/24/16 Kayla Porras NP [address] [place] [address] PCP - General 06/23/16 06/23/16 Kayla Porras NP [address] [place] [address] PCP - General 02/11/16 05/29/16 Frank Toure MD [address] [place] [address] [place] Occupational Therapist Per Diem CARDIOVASCULAR DISEASE 05/30/16 documented as of this encounter
--- OUTSIDE RECORDS SUMMARY | 2024-06-08 05:54 | XMS_ITS | Encounter Summary ---
Author Organization [facility] Address [address] [place] [address] [place] [address] Care Team Providers Care Editor School Photograph Name Role Phone Frank Toure MD Unavailable Kayla Porras NP Primary Care Provider [phone] Encounter Details Date Type Department Care Team (Late st Contact Info) Description 11/14/2016 WAREHOUSE DISTRIBUTION SPECIALIST ONLY [facility] [address] [place] [address] Joao Hancock MD [address] [place] [address] Social History Tobacco Use Types Packs/Day Years Used Date Smoking Tobacco: Never Assessed Sex and Gender Information Value Date Recorded Sex Assigned at Not on file Legal Sex Male 10:23 PM CDT Gender Identity Not on file Sexual Orientation Not on file documented as of this encounter Consult Notes * Joao Hancock MD - 11/15/2016 4:56 PM CDT BI TABOR MD: Acct: [id number] Admit/Service Date: 11/13/16 Discharge Date: : 1960 Pt Type: ADM IN Sex: M Ord Site: [facility] CHART DOCUMENT DATE OF CONSULTATION: 11/15/2016 REFERRING PHYSICIAN: Dr. Quiñonez HISTORY OF PRESENT ILLNESS: I saw Mr. Tabor again today. He is 56-year-old gentleman who is calmer. He is on the wait for the MRI scan. He did not have any seizure. The nurse told me that his sister told her that he is not taking medication. When they went in to see him all the medication the whole week was there. So he has a problem with compliance. PLAN: I asked the nurse to ask the Social Service to take care of this problem is possible. Thank you for the consult. Electronically Signed By: JOAO HANCOCK M.D. 11/16/2016 11:50 A JOAO HANCOCK M.D. P #[id number] P/ma cc: Malena RICHARDSON M.D. PANDURANGA KINI, M.D. ANTHONY L. TRUONG, D.O. * Joao Hancock MD - 11/14/2016 9:48 PM CDT JORGE ALBERTOBI ARAMIS Harrington MD: Acct: [id number] Admit/Service Date: 11/13/16 Discharge Date: : 1960 Pt Type: ADM IN Sex: M Ord Site: [facility] CHART DOCUMENT DATE OF CONSULTATION: 11/14/2016 REFERRING PHYSICIAN: Amber Quiñonez MD HISTORY OF PRESENT ILLNESS: I saw patient, Bi Tabor, who is a 56-year-old gentleman who was admitted because of 2 seizures, 1 at home I think today, and 1 a couple days ago. Apparently he has some abrasions over his head in right angle area. 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 I have seen him in the past in May 2016 for a seizure. I had increased the Keppra to 1 g b.i.d. and since then have not seen him. I am not sure about the compliance. He is here because of a seizure. Now when I saw him in the evening, he was somewhat drowsy. Earlier he got some Zyprexa. PAST MEDICAL HISTORY: History of CVA, high blood pressure, and benign prostate hypertrophy, and seizure disorder NEUROLOGICAL EXAMINATION: Reveals patient is drowsy but arousable. Pupils are pretty equal. He has inconsistent visual field cut response both sides. He has no obvious facial weakness. His neck is supple. He seems to be moving all the 4 limbs. He is mildly agitated and wants to get out of the bed to go to the bathroom. ASSESSMENT: Breakthrough seizure disorder. RECOMMENDATIONS: I recommend increasing dose of Keppra to 1.5 g b.i.d., and ask the nurse to give extra 5 mg since he got only 1 g tonight. I recommend Ativan 1 mg IV p.r.n. q.4-6 hours for agitation and before the MRI scan. We will check his EEG. Thank you for the consult. Electronically Signed By: JOAO HANCOCK M.D. 11/15/2016 12:26 P JOAO HANCOCK M.D. P [id number] Shiloh/aramis cc: Malena HART M.D. PANDURANGA KINI, M.D. ANTHONY L. TRUONG, D.O. documented in this encounter Plan of Treatment Not on file documented as of this encounter Visit Diagnoses Not on filedocumented in this encounter Care Teams Editor School Photograph Relationship Specialty Start Date End Date Kayla [place] [address] PCP - General 06/25/16 09/27/18 Frank Toure MD [address] [place] [address] [employer] Cone Treater CARDIOVASCULAR DISEASE 05/30/16 documented as of this encounter
--- OUTSIDE RECORDS SUMMARY | 2024-06-08 05:54 | XMS_ITS | Encounter Summary ---
Author Organization [facility] Address [address] [facility] [place], [place] [address] [place] [address] Care Team Providers Care Product Marketing Specialist Name Role Phone Misael Maradiaga DO Primary Care Provider [phone] Frank Toure MD Unavailable Vern, Kayla MEDICAL INSTRUMENT TECHNICIAN Primary Care Provider [phone] Vern, Kayla MEDICAL INSTRUMENT TECHNICIAN Primary Care Provider [phone] Vern, Kayla MEDICAL INSTRUMENT TECHNICIAN Primary Care Provider [phone] Vern, Kayla MEDICAL INSTRUMENT TECHNICIAN Primary Care Provider [phone] Misael Maradiaga DO Primary Care Provider + [phone] Burke Restrepo MD Primary Care Provider + [phone] Encounter Details Date Type Department Care Team (Latest Contact Info) Description 06/19/2015 Abstract [facility] Misael Maradiaga DO [address] [phone] Social History Tobacco Use Types Packs/Day Years [...] on filedocumented in this encounter Care Teams Product Marketing Specialist Relationship Specialty Start Date End Date Misael Maradiaga DO PCP - General FAMILY PRACTICE 05/30/16 06/22/16 Kayla Porras NP [address] [facility] [place] [address] PCP - General 06/25/16 09/27/18 Kayla Porras NP [address] [facility] [place] [address] PCP - General 06/24/16 06/24/16 Kayla Porras NP [address] [facility], [place] [address] PCP - General 06/23/16 06/23/16 Kayla Porras NP [address] [facility] [place] [address] PCP - General 02/11/16 05/29/16 Misael Maradiaga DO PCP - General 02/02/16 02/10/16 Burke Restrepo MD [address] [facility] [place] [address] PCP - General 05/15/15 02/01/16 Frank Toure MD [address] [place] [address] [place] Email Marketing Specialist CARDIOVASCULAR DISEASE 05/30/16 documented as of this encounter
--- OUTSIDE RECORDS SUMMARY | 2024-06-08 05:54 | XMS_ITS | Encounter Summary ---
Author Organization [facility] Address [address] [facility]. [place], [place] [address] [place] [address] Care Team Providers Care Advance Agent Name Role Phone Misael Maradiaga DO Primary Care Provider [phone] Frank Toure MD Unavailable Vern, Kayla COMMERCIAL INTERIOR DESIGNER Primary Care Provider [phone] Vern, Kayla COMMERCIAL INTERIOR DESIGNER Primary Care Provider [phone] Vern, Kayla COMMERCIAL INTERIOR DESIGNER Primary Care Provider [phone] Vern, Kayla COMMERCIAL INTERIOR DESIGNER Primary Care Provider [phone] Encounter Details Date Type Department Care Team (Latest Contact Info) Description 02/12/2016 Abstract [facility] Social History Tobacco Use Types [...] in this encounter Progress Notes * Misael Maradiaga DO - 02/12/2016 8:09 AM CDT Message Here are your lab results No significant abnormal findings are seen Let me know if you have any questions Thanks Dr. Maradiaga Verified Results *[facility] In Office 11Feb2016 09:46AM Misael Maradiaga Test Name Result Flag Reference *HDL 60mg/dL 40 - 60 mg/dL Non-HDL 67mg/dL *Triglycerides 51mg/dL < 150 mg/dL *LDL 57mg/dL *Ratio 2.1 < or = 4.5 *Total Cholestrol 127 < 200 mg/dL CMP / Liver / Renal 11Feb2016 09:27AM Misael Maradiaga Test Name Result Flag Reference Glucose 103 mg/dL H 70-99 Blood Urea Nitrogen (BUN) 9 mg/dL 8-23 Creatinine 0.72 mg/dL 0.70-1.20 Sodium (Na) 140 mmol/L 136-145 Potassium (K) 4.5 mmol/L 3.5-5.1 Chloride (Cl) 102 mmol/L 98-107 Carbon Dioxide (CO2) 27 mmol/L 22-29 Total Bilirubin 0.3 mg/dL 0.2-1.2 Calcium 9.8 mg/dL 8.6-10.2 Alkaline Phosphatase (ALKP) 90 U/L 40-129 AST/GOT 17 U/L 0-40 Total Protein 7.1 g/dL 6.4-8.3 Albumin 4.8 g/dL 3.5-5.2 ALT/GPT 13 U/L 0-41 Direct Bilirubin <0.20 mg/dL 0.0-0.3 Phosphorus 3.5 mg/dL 2.7-4.5 Indirect Bilirubin NOT CALCULATED mg/dL 0.0-0.9 Globulin, Calc 2.3 g/dL 2.3-3.6 A:G Ratio 2.1 H 1.0-2.0 Anion Gap 16 8-20 Glomerular Filt Rate Calc >60 mL/min/1.73m'2 >60 Glomerular Filt Rate (AA) Calc >60 >60 NOTE: eGFR is not calculated for patients <18 years of age. This is an estimated GFR (CKD EPI) and should not be used for calculating drug doses. mL/min/1.73m'2 CBC W Differential 11Feb2016 09:27AM Misael Maradiaga Test Name Result Flag Reference WBC 6.2 X10'3/uL 4.8-10.8 RBC 4.68 X10'6/uL L 4.70-6.10 Hemoglobin (HGB) 15.1 g/dL 14.0-18.0 Hematocrit (HCT) 46.7 % 43.0-54.0 Mean Corpuscular Volume (MCV) 99.8 fL H 80.0-94.0 Mean Corpuscular Hgb (MCH) 32.3 pg H 27.0-31.0 Mean Corpuscular Hgb Conc (MCH 32.3 g/dL 32.0-36.0 RDW 12.0 % 11.5-14.5 PLATELET COUNT 256 X10'3/uL 130-400 Mean Platelet Volume (MPV) 11.4 fL 9.3-12.2 Differential Type AUTOMATED NEUTROPHILS 59.9 % 43.0-65.0 Lymphocytes % (Auto) 27.4 % 20.0-46.0 MONOCYTES 8.5 % 5.0-12.0 Eosinophils % (Auto) 3.7 % H 1.0-3.0 Basophils % (Auto) 0.3 % 0.0-1.0 IMMATURE GRANULOCYTES 0.2 % 0.0-1.0 Creatine Kinase ( CK ) ( CPK ) [id number] 09:27AM Misael Maradiaga Test Name Result Flag Reference Creatine Kinase (CK) 160 U/L 39-308 documented in this encounter Plan of Treatment Not on file documented as of this encounter Visit Diagnoses Not on filedocumented in this encounter Care Teams Advance Agent Relationship Specialty Start Date End Date Misael Maradiaga DO PCP - General FAMILY PRACTICE 05/30/16 06/22/16 Kayla Por[place] [address] PCP - General 06/25/16 09/27/18 Kayla Por[place] [address] PCP - General 06/24/16 06/24/16 Kayla Por[place] [address] PCP - General 06/23/16 06/23/16 Kayla Porras NP [address] [place] [address] PCP - General 02/11/16 05/29/16 Frank Toure MD [address] [place] [address] [employer] Slot Floor Attendant CARDIOVASCULAR DISEASE 05/30/16 documented as of this encounter
--- OUTSIDE RECORDS SUMMARY | 2024-06-08 05:54 | XMS_ITS | Encounter Summary ---
Author Organization [facility] Address [address] [place] [address] [place] [address] Care Team Providers Care Pit Shovel Operator Name Role Phone Frank Toure MD Unavailable Kayla Porras NP Primary Care Provider [phone] Encounter Details Date Type Department Care Team (Late st Contact Info) Description 06/25/2016 Emergency [facility] [place] [address] Tri Mcfarland MD Social History Tobacco Use Types Packs/Day [...] Name Priority Date/Time Associated Diagnosis Comments CBC W/DIFF AUTOMATED Routine 06/25/2016 9:03 AM HAND COPER BASIC METABOLIC PANEL TIMED 06/25/2016 7:49 AM HAND COPER URINALYSIS WI REFLEX TO CULTURE STAT 06/24/2016 11:47 PM HAND COPER DRUG SCREEN RAPID STAT 06/24/2016 11: 47 PM HAND COPER KEPPRA LEVEL STAT 06/24/2016 8:30 PM HAND COPER COMPREHENSIVE METABOLIC PANEL STAT 06/24/2016 8:30 PM HAND COPER CKMB(MB FRACTION ONLY) STAT 7 8:30 PM HAND COPER CBC W/DIFF AUTOMATED STAT 06/24/2016 8:30 PM HAND COPER TROPONIN, QUANT STAT 06/24/2016 8:30 PM HAND COPER ETHANOL STAT 06/24/2016 8:30 PM HAND COPER CK (CPK) STAT 06/24/2016 8:30 PM HAND COPER documented in this encounter Results * (ABNORMAL) CBC W/DIFF AUTOMATED (06/25/2016 9:03 AM HAND COPER) WBC 5.2 4.8 - 10.8 x10'3/uL 06/25/2016 10:14 AM HAND COPER [facility] RBC 4.49(L) 4.70 - 6.10 x10'6/uL 06/25/2016 10:14 AM HAND COPER [facility] HGB 14.5 14.0 - 18.0 G/DL 06/25/2016 10:14 AM [facility] HCT 42.9(L) 43.0 - 54.0 % 06/25/2016 10:14 AM HAND COPER [facility] MCV 95.5(H) 80.0 - 94.0 FL 06/25/2016 10:14 AM HAND COPER [facility] MCH 32.3(H) 27.0 - 31.0 PG 06/25/2016 10:14 AM [facility] MCHC 33.8 32.0 - 36.0 G/DL 06/25/2016 10:14 AM HAND COPER [facility] RDW 11.7 11.5 - 14.5 % 06/25/2016 10:14 AM [facility] PLT 154 130 - 400 x10'3/uL 06/25/2016 10:14 AM [facility] MPV 11.4 9.3 - 12.2 FL 06/25/2016 10:14 AM [facility] IMMATURE GRANS % 0.2 0.0 - 1.0 % 06/25/2016 10:14 AM [facility] NEUTROPHILS % 52.0 43.0 - 65.0 % 06/25/2016 10:14 AM [facility] LYMPHOCYTES % 30.5 20.0 - 46.0 % 06/25/2016 10:14 AM [facility] MONOCYTES % 14.8(H) 5.0 - 12.0 % 06/25/2016 10:14 AM [facility] EOSINOPHILS 2.1 1.0 - 3.0 % 06/25/2016 10:14 AM [facility] BASOPHILS 0.4 0.0 - 1.0 % 06/25/2016 10:14 AM [facility] WHOLE BLOOD SPECIMEN / Unknown 06/25/2016 9:03 AM HAND COPER 06/25/2016 10:[address] [facility] us Generic Conversion Md [facility] Final R esult [facility] [address] [place] [address], * (ABNORMAL) BASIC METABOLIC PANEL (06/25/2016 7:49 AM HAND COPER) GLUCOSE 95 70 - 99 mg/dL 06/25/2016 10:12 AM [facility] BUN 12 8 - 23 mg/dL 06/25/2016 10:12 AM [facility] CREATININE S/P/B 0.80 0.70 - 1.20 mg/dL 06/25/2016 10:12 AM [facility] SODIUM S/P/B 136 136 - 145 mmol/L 06/25/2016 10:12 AM [facility] POTASSIUM S/P/B 4.7 3.5 - 5.1 mmol/L 06/25/2016 10:12 AM [facility] CHLORIDE S/P/B 103 98 - 107 mmol/L 06/25/2016 10:12 AM [facility] CO2 20(L) 22 - 29 mmol/L 06/25/2016 10:12 AM [facility] CALCIUM S/P/B 8.9 8.6 - 10.2 mg/dL 06/25/2016 10:12 AM [facility] ANION GAP 18 8 - 20 06/25/2016 10:12 AM [facility] EGFR NON-AFR. AMER. >60 >60 mL/min/1.7 3m'2 06/25/2016 10:12 AM [facility] EGFR AFR. AMER. >60 >60 mL/min/1.7 3m'2 06/25/2016 10:12 AM [facility] Comment: NOTE: eGFR is not calculated for patients <18 years of age. This is an estimated GFR (CKD EPI) and should not be used for calculating drug doses. 06/25/2016 7:49 AM HAND COPER 06/25/2016 8:55 AM HAND COPER us Generic Conversion Md [facility] Final R esult [facility] [address] [place] [address], * (ABNORMAL) URINALYSIS WI REFLEX TO CULTURE (06/24/2016 11:47 PM HAND COPER) SOURCE (FLUID) URINE CLEAN CATCH 06/24/2016 9:29 PM [facility] COLOR (U) YELLOW 06/25/2016 1:02 AM [facility] TRANSPARENCY CLEAR 06/25/2016 1:02 AM [facility] SPECIFIC GRAVITY (U) 1.016 1.001 - 1.030 06/25/2016 1:02 AM [facility] U PH 5.0 5.0 - 9.0 06/25/2016 1:02 AM [facility] LEUKOCYTES (U) NEGATIVE NEGATIVE 06/25/2016 1:02 AM [facility] NITRITES NEGATIVE NEGATIVE 06/25/2016 1:02 AM [facility] PROTEIN (U) NEGATIVE <30 MG/DL 06/25/2016 1:02 AM [facility] URINE GLUCOSE NEGATIVE NEGATIVE MG/DL 06/25/2016 1:02 AM [facility] KETONES MG/DL (U) 20(A) NEGATIVE MG/DL 06/25/2016 1:02 AM [facility] UROBILINOGEN NEGATIVE NEGATIVE MG/DL 06/25/2016 1:02 AM [facility] BILIRUBIN (U) NEGATIVE NEGATIVE MG/DL 06/25/2016 1:02 AM [facility] BLOOD (U) NEGATIVE NEGATIVE 06/25/2016 1:02 AM [facility] CULTURE & SENSITIVITY INDICATED? CULTURE IS NOT INDICATED 06/25/2016 1:02 AM [facility] MUCUS FEW /LPF 06/25/2016 1:02 AM [facility] WBC/HPF 4 <6 /HPF 06/25/2016 1:02 AM [facility] RBC/HPF <1 <6 /HPF 06/25/2016 1:02 AM [facility] 06/24/2016 11:4 7 PM HAND COPER 06/25/2016 12:52 AM HAND COPER us Generic Conversion Md OLSEN URINE ORDERABLES Final Result [facility] [address] [place] [address], * (ABNORMAL) DRUG SCREEN RAPID (06/24/2016 11:47 PM HAND COPER) AMPHETAMINE (U) NEGATIVE NEGATIVE 7 1:07 AM [facility] BARBITURATES SCREEN (U) NEGATIVE NEGATIVE 06/25/2016 1:07 AM [facility] BENZODIAZEPINES SCREEN (U) NEGATIVE NEGATIVE 06/25/2016 1:07 AM [facility] BUPRENORPHINE SCREEN (U) NEGATIVE NEGATIVE 06/25/2016 1:07 AM [facility] COCAINE METABOLITES (U) NEGATIVE NEGATIVE 06/25/2016 1:07 AM [facility] METHAMPHETAMINE (U) POSITIVE(A) NEGATIVE 06/25/2016 1:07 AM [facility] METHADONE (U) NEGATIVE NEGATIVE 06/25/2016 1:07 AM [facility] OPIATE SCREEN (U) POSITIVE(A) NEGATIVE 2016 1:07 AM [facility] OXYCODONE SCREEN (U) NEGATIVE NEGATIVE 06/25/2016 1:07 AM [facility] PHENCYCLIDINE PCP (U) NEGATIVE NEGATIVE 06/25/2016 1:07 AM [facility] PROPOXYPHENE SCREEN (U) NEGATIVE NEGATIVE 06/25/2016 1:07 AM [facility] CANNABINOIDS SCREEN (U) NEGATIVE NEGATIVE 06/25/2016 1:07 AM [facility] TRICYCLIC ANTIDEPRESSANT SCREEN (U) NEGATIVE NEGATIVE 06/25/2016 1:07 AM [facility] Comment: NOTE: RESULTS OF THIS DRUG SCREEN SHOULD BE USED FOR MEDICAL PURPOSES ONLY AND NOT FOR LEGAL OR EMPLOYMENT PURPOSES. POSITIVE RESULTS ARE NOT CONFIRMED. MEDICATIONS CONTAINING EPHEDRINE MAY CAUSE FALSE POSITIVE AMPHETAMINE CALL [phone] TO REQUEST CONFIRMATION TESTING. IF CREATININE IS <40 mg/dL. ??RECOLLECTION IS SUGGESTED. AMPHETAMINE- ?500 NG/ML BARBITURATE- ?200 NG/ML BENZODIAZEPINE- ?? 150 NG/ML BUPRENORPHINE- ? 10 NG/ML COCAINE- ?150 NG/ML METHAMPHETAMINES- 500 NG/ML METHADONE- ?200 NG/ML OPIATE- ? 100 NG/ML OXYCODONE- ?100 NG/ML PCP- ? 25 NG/ML PROPOXYPHENE- ? 300 NG/ML THC- ? 50 NG/ML TCA- ?300 NG/ML CREATININE (U) 161.5 39 - 259 MG/DL 06/25/2016 1:00 AM [facility] 06/24/2016 11:[address] [facility] 06/25/2016 12:[address] [facility] us Generic Conversion Md [facility] URINE ORDERABLES Final Result [facility] [address] [place] [id number], * TROPONIN, QUANT (06/24/2016 8:[address] [facility]) TROPONIN I <0.30 <0.30 ng/mL 06/24/2016 10:18 PM [facility] SERUM OR PLASMA SPECIMEN / Unknown 06/24/2016 8:30 PM HAND COPER 06/24/2016 9:31 PM HAND COPER Generic Conversion Md [facility] Performing Organization Address [facility] Co de Phone Number [facility] [address] [place] [address], * (ABNORMAL) CKMB(MB FRACTION ONLY) (06/24/2016 8:30 PM HAND COPER) CK-MB 10.94(H) <7.70 ng/mL 06/24/2016 10:18 PM HAND COPER [facility] Comment: Successful Call: CKMBD called 06/24/2016 09:20 PM to EMERGENCY ROOM ([employer]/AHMET LAM) by [id number]. Read Back: Yes SERUM OR PLASMA SPECIMEN / Unknown 06/24/2016 8:30 PM HAND COPER 06/24/2016 9:31 PM HAND COPER Generic Conversion Md [facility] Jonathan wallace Performing Organization Address [facility] Co de Phone Number [facility] [address] [place] [address], * KEPPRA LEVEL (06/24/2016 8:30 PM HAND COPER) KEPPRA 32.5 mcg/mL 06/27/2016 10:32 AM HAND COPER [employer] [facility]IGGS Comment: Unable to flag abnormal result(s), please ?? refer to reference range(s) below: Therapeutic Levels: Drug Dosage ? Trough ? Peak 500 mg BID ?? 3.1-10.0 mcg/mL ?? 10.0-25.0 mcg/mL 1000 mg BID ?? 4.9-37.1 mcg/mL ?? 30.0-40.0 mcg/mL 1500 mg BID ?? 7.0-34.0 mcg/mL ?? 36.1-70.0 mcg/mL Toxic level: ??Not established Test Performed by [facility], [facility], [address] [place] [address] Levon Brewer M.D., Ph.D., Director of Laboratories , CLIA [id number] SERUM SPECIMEN / Unknown 06/24/2016 8:30 PM HAND COPER 06/24/2016 9:31 PM HAND COPER us Generic Conversion Md [facility] Final R esult [employer] [address] [address], [place] [phone] * (ABNORMAL) CK (CPK) (06/24/2016 8:30 PM HAND COPER) CPK 1,538(H) 39 - 308 U/L 06/24/2016 10:06 PM [facility] SERUM OR PLASMA SPECIMEN / Unknown 06/24/2016 8:30 PM HAND COPER 06/24/2016 9:31 PM HAND COPER us Generic Conversion Md [facility] Final R esult [facility] [address] [place] [address], [place] [phone] * (ABNORMAL) COMPREHENSIVE METABOLIC PANEL (06/24/2016 8:30 PM HAND COPER) GLUCOSE 121(H) 70 - 99 mg/dL 06/24/2016 10:06 PM HAND COPER [facility] BUN 12 8 - 23 mg/dL 06/24/2016 10:06 PM [facility] CREATININE S/P/B 0.75 0.70 - 1.20 mg/dL 06/24/2016 10:06 PM HAND COPER [facility] SODIUM S/P/B 137 136 - 145 mmol/L 06/24/2016 10:06 PM [facility] POTASSIUM S/P/B 3.8 3.5 - 5.1 mmol/L 06/24/2016 10:06 PM [facility] CHLORIDE S/P/B 97(L) 98 - 107 mmol/L 06/24/2016 10:06 PM [facility] CO2 25 22 - 29 mmol/L 06/24/2016 10:06 PM [facility] BILIRUBIN TOTAL S/P/B 0.7 0.2 - 1.2 mg/dL 06/24/2016 10:06 PM [facility] CALCIUM S/P/B 9.6 8.6 - 10.2 mg/dL 06/24/2016 10:06 PM [facility] ALKALINE PHOSPHATASE S/P/B 84 40 - 129 U/L 06/24/2016 10:06 PM [facility] AST 36 0 - 40 U/L 06/24/2016 10:06 PM [facility] TOTAL PROTEIN S/P/B 7.0 6.4 - 8.3 g/dL 06/24/2016 10:06 PM [facility] ALBUMIN S/P/B 4.3 3.5 - 5.2 g/dL 06/24/2016 10:06 PM [facility] ALT 17 0 - 41 U/L 06/24/2016 10:06 PM [facility] GLOBULIN 2.7 2.3 - 3.6 g/dL 06/24/2016 10:06 PM [facility] A/G RATIO 1.6 1.0 - 2.0 06/24/2016 10:06 PM [facility] ANION GAP 19 8 - 20 06/24/2016 10:06 PM [facility] EGFR NON-AFR. AMER. >60 >60 mL/min/1.7 3m'2 06/24/2016 10:06 PM [facility] EGFR AFR. AMER. >60 >60 mL/min/1.7 3m'2 06/24/2016 10:06 PM [facility] Comment: NOTE: eGFR is not calculated for patients <18 years of age. This is an estimated GFR (CKD EPI) and should not be used for calculating drug doses. 06/24/2016 8:30 PM HAND COPER 06/24/2016 9:31 PM HAND COPER us Generic Conversion Md [facility] Final R esult [facility] [address] [place] [address], * (ABNORMAL) CBC W/DIFF AUTOMATED (06/24/2016 8:30 PM HAND COPER) WBC 6.6 4.8 - 10.8 x10'3/uL 06/24/2016 9:46 PM [facility] RBC 4.67(L) 4.70 - 6.10 x10'6/uL 06/24/2016 9:46 PM [facility] HGB 15.2 14.0 - 18.0 G/DL 06/24/2016 9:46 PM [facility] HCT 43.4 43.0 - 54.0 % 06/24/2016 9:46 PM [facility] MCV 92.9 80.0 - 94.0 FL 06/24/2016 9:46 PM [facility] MCH 32.5(H) 27.0 - 31.0 PG 06/24/2016 9:46 PM [facility] MCHC 35.0 32.0 - 36.0 G/DL 06/24/2016 9:46 PM [facility] RDW 11.7 11.5 - 14.5 % 06/24/2016 9:46 PM [facility] PLT 156 130 - 400 x10'3/uL 06/24/2016 9:46 PM [facility] MPV 11.3 9.3 - 12.2 FL 06/24/2016 9:46 PM [facility] IMMATURE GRANS % 0.3 0.0 - 1.0 % 06/24/2016 9:46 PM [facility] NEUTROPHILS % 67.1(H) 43.0 - 65.0 % 06/24/2016 9:46 PM [facility] LYMPHOCYTES % 20.5 20.0 - 46.0 % 06/24/2016 9:46 PM [facility] MONOCYTES % 11.2 5.0 - 12.0 % 06/24/2016 9:46 PM [facility] EOSINOPHILS 0.6(L) 1.0 - 3.0 % 06/24/2016 9:46 PM [facility] BASOPHILS 0.3 0.0 - 1.0 % 06/24/2016 9:46 PM [facility] WHOLE BLOOD SPECIMEN / Unknown 06/24/2016 8:30 PM HAND COPER 06/24/2016 9:[address] [facility] us Generic Conversion Md [facility] Final R esult [facility] [address] [place] [address], * ETHANOL (06/24/2016 8:30 PM HAND COPER) ALCOHOL S/P/B <0.010 <0.010 % 06/24/2016 10:06 PM HAND COPER [facility] SERUM OR PLASMA SPECIMEN / Unknown 06/24/2016 8:30 PM HAND COPER 06/24/2016 9:31 PM HAND COPER us Generic Conversion Md [facility] Final R esult [facility] [address] [place] [address], documented in this encounter Visit Diagnoses Diagnosis Epilepsy without status epilepticus, not intractable (CMS/HCC [facility]) Unspecified epilepsy without mention of intractable epilepsy documented in this encounter Care Teams Pit Shovel Operator Relationship Specialty Start Date End Date Kayla Porras NP [address] [place] [address] [place] [address] PCP - General 06/25/16 09/27/18 Frank Toure MD [address] [place] [id number] [employer] Operator CARDIOVASCULAR DISEASE 05/30/16 documented as of this encounter
--- OUTSIDE RECORDS SUMMARY | 2024-06-08 05:54 | XMS_ITS | Encounter Summary ---
Author Organization [facility] Address [address] [place] [address] [place] [address] Care Team Providers Care Face Cleaner Name Role Phone Frank Toure MD Unavailable Kayla Porras NP Primary Care Provider [phone] Encounter Details Date Type Department Care Team (Late st Contact Info) Description 11/13/2016 Abstract [facility] [place] [address] Rajat Luther MD Md, Jerica Cordon MD Social History Tobacco Use [...] Associated Diagnosis Comments BASIC METABOLIC PANEL Routine 11/17/2016 10:21 AM CDT CBC W/DIFF AUTOMATED Routine 11/17/2016 10:21 AM CDT BASIC METABOLIC PANEL Routine 11/15/2016 11:44 AM CDT CK (CPK) TIMED 11/15/2016 11:44 AM CDT CBC W/DIFF AUTOMATED Routine 11/15/2016 6:40 AM CDT COMPREHENSIVE METABOLIC PANEL Routine 11/14/2016 6:02 AM CDT LACTIC ACID Routine 11/14/2016 6:02 AM CDT CBC W/DIFF AUTOMATED Routine 11/14/2016 6:02 AM CDT TROPONIN, QUANT Routine 11/14/2016 6:02 AM CDT PHOSPHORUS, INORGANIC PHOSPHATE Routine 11/14/2016 6:02 AM CDT MAGNESIUM Routine 11/14/2016 6:02 AM CDT CK (CPK) Routine 11/14/2016 6:02 AM CDT URIC ACID BLOOD Routine 11/14/2016 6:02 AM CDT CKMB(MB FRACTION ONLY) STAT 7 8:38 PM CDT TROPONIN, QUANT STAT 11/13/2016 8:38 PM CDT CK (CPK) STAT 11/13/2016 8:38 PM CDT DRUG SCREEN RAPID STAT 11/13/2016 8:2 2 PM CDT URINALYSIS STAT 11/13/2016 8:22 PM CDT KEPPRA LEVEL Routine 11/13/2016 7:24 PM CDT BNP STAT 11/13/2016 6:51 PM CDT PARTIAL THROMBOPLASTIN TIME,PTT STAT 11/13/2016 6:51 PM CDT PROTHROMBIN TIME, VENOUS STAT 11/13/2016 6:51 PM CDT COMPREHENSIVE METABOLIC PANEL STAT 11/13/2016 6:51 PM CDT CKMB(MB FRACTION ONLY) STAT 7 6:51 PM CDT CBC W/DIFF AUTOMATED STAT 11/13/2016 6:51 PM CDT TROPONIN, QUANT STAT 11/13/2016 6:51 PM CDT ETHANOL STAT 11/13/2016 6:51 PM CDT CK (CPK) STAT 11/13/2016 6:51 PM CDT documented in this encounter Results * (ABNORMAL) CBC W/DIFF AUTOMATED (11/17/2016 10:21 AM CDT) WBC 6.6 4.8 - 10.8 x10'3/uL 11/17/2016 11:06 AM CDT [facility] RBC 4.59(L) 4.70 - 6.10 x10'6/uL 11/17/2016 11:06 AM CDT [facility] HGB 14.8 14.0 - 18.0 G/DL 11/17/2016 11:06 AM CDT [facility] HCT 42.7(L) 43.0 - 54.0 % 11/17/2016 11:06 AM CDT [facility] MCV 93.0 80.0 - 94.0 FL 11/17/2016 11:06 AM CDT [facility] MCH 32.2(H) 27.0 - 31.0 PG 11/17/2016 11:06 AM CDT [facility] MCHC 34.7 32.0 - 36.0 G/DL 11/17/2016 11:06 AM CDT [facility] RDW 11.8 11.5 - 14.5 % 11/17/2016 11:06 AM CDT [facility] PLT 191 130 - 400 x10'3/uL 11/17/2016 11:06 AM CDT [facility] MPV 11.1 9.3 - 12.2 FL 11/17/2016 11:06 AM CDT [facility] IMMATURE GRANS % 0.2 0.0 - 1.0 % 11/17/2016 11:06 AM CDT [facility] NEUTROPHILS % 61.7 43.0 - 65.0 % 11/17/2016 11:06 AM CDT [facility] LYMPHOCYTES % 28.8 20.0 - 46.0 % 11/17/2016 11:06 AM CDT [facility] MONOCYTES % 7.6 5.0 - 12.0 % 11/17/2016 11:06 AM CDT [facility] EOSINOPHILS 1.5 1.0 - 3.0 % 11/17/2016 11:06 AM CDT [facility] BASOPHILS 0.2 0.0 - 1.0 % 11/17/2016 11:06 AM CDT [facility] WHOLE BLOOD SPECIMEN / Unknown 11/17/2016 10:21 AM CDT 11/17/2016 10:24 AM CDT us Generic Conversion Md [facility] LABORATORY Final R esult [facility] [address] [place] [address], * (ABNORMAL) BASIC METABOLIC PANEL (11/17/2016 10:21 AM CDT) GLUCOSE 191(H) 70 - 99 mg/dL 11/17/2016 11:19 AM CDT [facility] BUN 10 8 - 23 mg/dL 11/17/2016 11:19 AM CDT [facility] CREATININE S/P/B 0.66(L) 0.70 - 1.20 mg/dL 11/17/2016 11:19 AM CDT [facility] SODIUM S/P/B 144 136 - 145 mmol/L 11/17/2016 11:19 AM CDT [facility] POTASSIUM S/P/B 3.2(L) 3.5 - 5.1 mmol/L 11/17/2016 11:19 AM CDT [facility] CHLORIDE S/P/B 105 98 - 107 mmol/L 11/17/2016 11:19 AM CDT [facility] CO2 24 22 - 29 mmol/L 11/17/2016 11:19 AM CDT [facility] CALCIUM S/P/B 9.4 8.6 - 10.2 mg/dL 11/17/2016 11:19 AM CDT [facility] ANION GAP 18 8 - 20 11/17/2016 11:19 AM CDT [facility] EGFR NON-AFR. AMER. >60 >60 mL/min/1.7 [facility] 11/17/2016 11:19 AM T [facility] EGFR AFR. AMER. >60 >60 mL/min/1.7 '2 11/17/2016 11:19 AM T [facility] Comment: NOTE: eGFR is not calculated for patients <18 years of age. This is an estimated GFR (CKD EPI) and should not be used for calculating drug doses. 11/17/2016 10:2 1 AM CDT 11/17/2016 10:24 AM CDT us Generic Conversion Md [facility] LABORATORY Final R esult [facility] [address] [place] [address], * (ABNORMAL) CK (CPK) (11/15/2016 11:44 AM CDT) CPK 1,325(H) 39 - 308 U/L 11/15/2016 1:14 PM CDT [facility] SERUM OR PLASMA SPECIMEN / Unknown 11/15/2016 11:44 AM CDT 11/15/2016 11:47 AM CDT us Generic Conversion Md [facility] LABORATORY Final R esult [facility] [address] [place] [address], [place] [phone] * (ABNORMAL) BASIC METABOLIC PANEL (11/15/2016 11:44 AM CDT) GLUCOSE 123(H) 70 - 99 mg/dL 11/15/2016 1:14 PM CDT [facility] BUN 12 8 - 23 mg/dL 11/15/2016 1:14 PM CDT [facility] CREATININE S/P/B 0.64(L) 0.70 - 1.20 mg/dL 11/15/2016 1:14 PM CDT [facility] SODIUM S/P/B 143 136 - 145 mmol/L 11/15/2016 1:14 PM CDT [facility] POTASSIUM S/P/B 3.6 3.5 - 5.1 mmol/L 11/15/2016 1:14 PM CDT [facility] CHLORIDE S/P/B 105 98 - 107 mmol/L 11/15/2016 1:14 PM CDT [facility] CO2 23 22 - 29 mmol/L 11/15/2016 1:14 PM CDT [facility] CALCIUM S/P/B 9.6 8.6 - 10.2 mg/dL 11/15/2016 1:14 PM CDT [facility] ANION GAP 19 8 - 20 11/15/2016 1:14 PM CDT [facility] EGFR NON-AFR. AMER. >60 >60 mL/min/1.7 [facility] 11/15/2016 1:14 PM CDT [facility] EGFR AFR. AMER. >60 >60 mL/min/1.7 [facility] 11/15/2016 1:14 PM CDT [facility] Comment: NOTE: eGFR is not calculated for patients <18 years of age. This is an estimated GFR (CKD EPI) and should not be used for calculating drug doses. 11/15/2016 11:4 4 AM CDT 11/15/2016 11:47 AM CDT us Generic Conversion Md [facility] LABORATORY Final R esult [facility] [address] [place] [address], * (ABNORMAL) CBC W/DIFF AUTOMATED (11/15/2016 6:40 AM CDT) WBC 6.9 4.8 - 10.8 x10'3/uL 11/15/2016 7:29 AM CDT [facility] RBC 4.49(L) 4.70 - 6.10 x10'6/uL 11/15/2016 7:29 AM CDT [facility] HGB 14.4 14.0 - 18.0 G/DL 11/15/2016 7:29 AM CDT [facility] HCT 42.8(L) 43.0 - 54.0 % 11/15/2016 7:29 AM CDT [facility] MCV 95.3(H) 80.0 - 94.0 FL 11/15/2016 7:29 AM CDT [facility] MCH 32.1(H) 27.0 - 31.0 PG 11/15/2016 7:29 AM CDT [facility] MCHC 33.6 32.0 - 36.0 G/DL 11/15/2016 7:29 AM CDT [facility] RDW 11.8 11.5 - 14.5 % 11/15/2016 7:29 AM CDT [facility] PLT 152 130 - 400 x10'3/uL 11/15/2016 7:29 AM CDT [facility] MPV 11.8 9.3 - 12.2 FL 11/15/2016 7:29 AM CDT [facility] IMMATURE GRANS % 0.1 0.0 - 1.0 % 11/15/2016 7:29 AM CDT [facility] NEUTROPHILS % 55.9 43.0 - 65.0 % 11/15/2016 7:29 AM CDT [facility] LYMPHOCYTES % 32.6 20.0 - 46.0 % 11/15/2016 7:29 AM CDT [facility] MONOCYTES % 10.4 5.0 - 12.0 % 11/15/2016 7:29 AM CDT [facility] EOSINOPHILS 0.7(L) 1.0 - 3.0 % 11/15/2016 7:29 AM CDT [facility] BASOPHILS 0.3 0.0 - 1.0 % 11/15/2016 7:29 AM CDT [facility] WHOLE BLOOD SPECIMEN / Unknown 11/15/2016 6:40 AM CDT 11/15/2016 6:44 AM CDT us Generic Conversion Md [facility] LAB[facility]AT[facility] Final R esult [facility] [address] [place] [address], * TROPONIN, QUANT (11/14/2016 6:02 AM CDT) TROPONIN I <0.30 <0.30 ng/mL 11/14/2016 6:40 AM CDT [facility] SERUM OR PLASMA SPECIMEN / Unknown 11/14/2016 6:02 AM CDT 11/14/2016 6:15 AM CDT us Generic Conversion Md [facility] LAB[facility] Final R esult [facility] [address] [place] [address], * LACTIC ACID (11/14/2016 6:02 AM CDT) Pathologist [facility] LACTIC ACID VENOUS 0.79 0.5 - 2.2 mmol/L 11/14/2016 6:39 AM CDT [facility] Comment: NOTE: Acetaminophen, N Acetyl p benzoquinone imine (NAPQI), N acetylcysteine (NAC), Metamizole, 4 Aminoantipyrine (4 AAP) and 4 Methylamino antipyrine (4 MAP) at high concentrations can cause falsely low results on Lactate, Uric Acid, Cholesterol, Triglyceride, HDL, and Direct LDL. PLASMA SPECIMEN / Unknown 11/14/2016 6:02 AM CDT 11/14/2016 6:15 AM CDT us Generic Conversion Md [facility] LAB[facility]AT[facility] Final R esult [facility] [address] [place] [address], [place] [phone] * (ABNORMAL) URIC ACID BLOOD (11/14/2016 6:02 AM CDT) Pathologist [facility] URIC ACID 3.3(L) 3.4 - 7.0 mg/dL 11/14/2016 6:41 AM CDT [facility] Comment: NOTE: Acetaminophen, N Acetyl p benzoquinone imine (NAPQI), N acetylcysteine (NAC), Metamizole, 4 Aminoantipyrine (4 AAP) and 4 Methylamino antipyrine (4 MAP) at high concentrations can cause falsely low results on Lactate, Uric Acid, Cholesterol, Triglyceride, HDL, and Direct LDL. SERUM OR PLASMA SPECIMEN / Unknown 11/14/2016 6:02 AM CDT 11/14/2016 6:15 AM CDT Generic Conversion Md [facility] LAB[facility] Final R [place] Performing Organization Address City/[facility]/ZIP Co de Phone Number [facility] [address] [place] [address], * (ABNORMAL) PHOSPHORUS, INORGANIC PHOSPHATE (11/14/2016 6:02 AM CDT) PHOSPHORUS 2.4(L) 2.7 - 4.5 mg/dL 11/14/2016 6:41 AM CDT [facility] SERUM OR PLASMA SPECIMEN / Unknown 11/14/2016 6:02 AM CDT 11/14/2016 6:15 AM CDT Generic Neris Olsen MD LABORATORY Final R [place] Performing Organization Address City/[facility]/ZIP Co de Phone Number [facility] [address] [place] [address], * MAGNESIUM (11/14/2016 6:02 AM CDT) MAGNESIUM 1.7 1.70 - 2.55 mg/dL 11/14/2016 6:41 AM CDT [facility] SERUM OR PLASMA SPECIMEN / Unknown 11/14/2016 6:02 AM CDT 11/14/2016 6:15 AM CDT Generic Conversion Md [facility] Final R [place] [facility] [address] [place] [address], [place] [phone] * (ABNORMAL) CK (CPK) (11/14/2016 6:02 AM CDT) CPK 1,487(H) 39 - 308 U/L 11/14/2016 6:41 AM CDT [facility] SERUM OR PLASMA SPECIMEN / Unknown 11/14/2016 6:02 AM CDT 11/14/2016 6:15 AM CDT us Generic Conversion Md [facility] Final R esult [facility] [address] [place] [address], [place] [phone] * (ABNORMAL) COMPREHENSIVE METABOLIC PANEL (11/14/2016 6:02 AM CDT) Pathologist [facility] GLUCOSE 115(H) 70 - 99 mg/dL 11/14/2016 6:41 AM CDT [facility] BUN 13 8 - 23 mg/dL 11/14/2016 6:41 AM CDT [facility] CREATININE S/P/B 0.61(L) 0.70 - 1.20 mg/dL 11/14/2016 6:41 AM CDT [facility] SODIUM S/P/B 141 136 - 145 mmol/L 11/14/2016 6:41 AM CDT [facility] POTASSIUM S/P/B 3.9 3.5 - 5.1 mmol/L 11/14/2016 6:41 AM CDT [facility] CHLORIDE S/P/B 103 98 - 107 mmol/L 11/14/2016 6:41 AM CDT [facility] CO2 24 22 - 29 mmol/L 11/14/2016 6:41 AM CDT [facility] BILIRUBIN TOTAL S/P/B 0.8 0.2 - 1.2 mg/dL 11/14/2016 6:41 AM T [facility] CALCIUM S/P/B 9.2 8.6 - 10.2 mg/dL 11/14/2016 6:41 AM T [facility] ALKALINE PHOSPHATASE S/P/B 77 40 - 129 U/L 11/14/2016 6:41 AM T [facility] AST 36 0 - 40 U/L 11/14/2016 6:41 AM [facility] TOTAL PROTEIN S/P/B 6.8 6.4 - 8.3 g/dL 11/14/2016 6:41 AM [facility] ALBUMIN S/P/B 4.2 3.5 - 5.2 g/dL 11/14/2016 6:41 AM [facility] ALT 20 0 - 41 U/L 11/14/2016 6:41 AM [facility] GLOBULIN 2.6 2.3 - 3.6 g/dL 11/14/2016 6:41 AM [facility] A/G RATIO 1.6 1.0 - 2.0 11/14/2016 6:41 AM [facility] ANION GAP 18 8 - 20 11/14/2016 6:41 AM [facility] EGFR NON-AFR. AMER. >60 >60 mL/min/1.7 [facility] 11/14/2016 6:41 AM T [facility] EGFR AFR. AMER. >60 >60 mL/min/1.7 [facility] 11/14/2016 6:41 AM [facility] Comment: NOTE: eGFR is not calculated for patients <18 years of age. This is an estimated GFR (CKD EPI) and should not be used for calculating drug doses. 11/14/2016 6:02 AM CDT 11/14/2016 6:15 AM CDT us Generic Conversion Md [facility] Final R esult [facility] [address] [place] [address], [place] [phone] * (ABNORMAL) CBC W/DIFF AUTOMATED (11/14/2016 6:02 AM CDT) WBC 8.4 4.8 - 10.8 x10'3/uL 11/14/2016 6:26 AM CDT [facility] RBC 4.62(L) 4.70 - 6.10 x10'6/uL 11/14/2016 6:26 AM CDT [facility] HGB 14.5 14.0 - 18.0 G/DL 11/14/2016 6:26 AM CDT [facility] HCT 43.1 43.0 - 54.0 % 11/14/2016 6:26 AM CDT [facility] MCV 93.3 80.0 - 94.0 FL 11/14/2016 6:26 AM CDT [facility] MCH 31.4(H) 27.0 - 31.0 PG 11/14/2016 6:26 AM CDT [facility] MCHC 33.6 32.0 - 36.0 G/DL 11/14/2016 6:26 AM CDT [facility] RDW 11.8 11.5 - 14.5 % 11/14/2016 6:26 AM CDT [facility] PLT 174 130 - 400 x10'3/uL 11/14/2016 6:26 AM CDT [facility] MPV 11.1 9.3 - 12.2 FL 11/14/2016 6:26 AM CDT [facility] IMMATURE GRANS % 0.2 0.0 - 1.0 % 11/14/2016 6:26 AM CDT [facility] NEUTROPHILS % 69.5(H) 43.0 - 65.0 % 11/14/2016 6:26 AM CDT [facility] LYMPHOCYTES % 22.7 20.0 - 46.0 % 11/14/2016 6:26 AM CDT [facility] MONOCYTES % 7.0 5.0 - 12.0 % 11/14/2016 6:26 AM CDT [facility] EOSINOPHILS 0.4(L) 1.0 - 3.0 % 11/14/2016 6:26 AM CDT [facility] BASOPHILS 0.2 0.0 - 1.0 % 11/14/2016 6:26 AM CDT [facility] WHOLE BLOOD SPECIMEN / Unknown 11/14/2016 6:02 AM CDT 11/14/2016 6:15 AM CDT us Generic Conversion Md [facility] Final R esult [facility] [address] [place] [address], [place] [phone] * (ABNORMAL) CK (CPK) (11/13/2016 8:38 PM CDT) CPK 1,558(H) 39 - 308 U/L 11/13/2016 9:09 PM CDT [facility] SERUM OR PLASMA SPECIMEN / Unknown 11/13/2016 8:38 PM CDT 11/13/2016 8:39 PM CDT us Generic Conversion Md [facility] Final R esult Performing Organization Address City/[facility]/ZIP Co de Phone Number [facility] [address] [place] [address], [place] [phone] * TROPONIN, QUANT (11/13/2016 8:38 PM CDT) TROPONIN I <0.30 <0.30 ng/mL 11/13/2016 9:00 PM CDT [facility] SERUM OR PLASMA SPECIMEN / Unknown 11/13/2016 8:38 PM CDT 11/13/2016 8:39 PM CDT us Generic Conversion Md [facility] Final R esult Performing Organization Address City/[facility]/ZIP Co de Phone Number [facility] [address] [place] [address], * CKMB(MB FRACTION ONLY) (11/13/2016 8:38 PM CDT) Pathologist [facility] CK-MB 6.17 <7.70 ng/mL 11/13/2016 9:00 PM CDT [facility] SERUM OR PLASMA SPECIMEN / Unknown 11/13/2016 8:38 PM CDT 11/13/2016 8:39 PM CDT us Generic Conversion Md [facility] Final R esult Performing Organization Address City/[facility]/ZIP Co de Phone Number [facility] [address] [place] [address], * (ABNORMAL) URINALYSIS (11/13/2016 8:22 PM CDT) SOURCE (FLUID) URINE CLEAN CATCH 11/13/2016 6:51 PM CDT [facility] COLOR (U) STRAW 11/13/2016 8:34 PM CDT [facility] TRANSPARENCY CLEAR 11/13/2016 8:34 PM CDT [facility] SPECIFIC GRAVITY (U) 1.009 1.001 - 1.030 11/13/2016 8:34 PM CDT [facility] U PH 5.0 5.0 - 9.0 11/13/2016 8:34 PM CDT [facility] LEUKOCYTES (U) NEGATIVE NEGATIVE 11/13/2016 8:34 PM CDT [facility] NITRITES NEGATIVE NEGATIVE 11/13/2016 8:34 PM CDT [facility] PROTEIN (U) NEGATIVE <30 MG/DL 11/13/2016 8:34 PM CDT [facility] URINE GLUCOSE NEGATIVE NEGATIVE MG/DL 11/13/2016 8:34 PM CDT [facility] KETONES MG/DL (U) TRACE(A) NEGATIVE MG/DL 11/13/2016 8:34 PM CDT [facility] UROBILINOGEN NEGATIVE NEGATIVE MG/DL 11/13/2016 8:34 PM CDT [facility] BILIRUBIN (U) NEGATIVE NEGATIVE MG/DL 11/13/2016 8:34 PM CDT [facility] BLOOD (U) NEGATIVE NEGATIVE 11/13/2016 8:34 PM CDT [facility] CULTURE & SENSITIVITY INDICATED? CULTURE IS NOT INDICATED 11/13/2016 8:34 PM CDT [facility] 11/13/2016 8:22 PM CDT 11/13/2016 8:27 PM CDT us Generic Conversion Md OLSEN URINE ORDERABLES Final Result [facility] [address] [place] [address], * DRUG SCREEN RAPID (11/13/2016 8:22 PM CDT) AMPHETAMINE (U) NEGATIVE NEGATIVE 7 8:41 PM CDT [facility] BARBITURATES SCREEN (U) NEGATIVE NEGATIVE 11/13/2016 8:41 PM CDT [facility] BENZODIAZEPINES SCREEN (U) NEGATIVE NEGATIVE 11/13/2016 8:41 PM CDT [facility] BUPRENORPHINE SCREEN (U) NEGATIVE NEGATIVE 11/13/2016 8:41 PM CDT [facility] COCAINE METABOLITES (U) NEGATIVE NEGATIVE 11/13/2016 8:41 PM CDT [facility] METHAMPHETAMINE (U) NEGATIVE NEGATIVE 11/13 8:41 PM CDT [facility] METHADONE (U) NEGATIVE NEGATIVE 11/13/2016 8:41 PM CDT [facility] OPIATE SCREEN (U) NEGATIVE NEGATIVE 017 8:41 PM CDT [facility] OXYCODONE SCREEN (U) NEGATIVE NEGATIVE 11/13/2016 8:41 PM CDT [facility] PHENCYCLIDINE PCP (U) NEGATIVE NEGATIVE 11/13/2016 8:41 PM CDT [facility] PROPOXYPHENE SCREEN (U) NEGATIVE NEGATIVE 11/13/2016 8:41 PM CDT [facility] CANNABINOIDS SCREEN (U) NEGATIVE NEGATIVE 11/13/2016 8:41 PM T [facility] TRICYCLIC ANTIDEPRESSANT SCREEN (U) NEGATIVE NEGATIVE 11/13/2016 8:41 PM T [facility] Comment: NOTE: RESULTS OF THIS DRUG SCREEN SHOULD BE USED FOR MEDICAL PURPOSES ONLY AND NOT FOR LEGAL OR EMPLOYMENT PURPOSES. POSITIVE RESULTS ARE NOT CONFIRMED. MEDICATIONS CONTAINING EPHEDRINE MAY CAUSE FALSE POSITIVE AMPHETAMINE CALL [phone] TO REQUEST CONFIRMATION TESTING. IF CREATININE IS <40 mg/dL. ??RECOLLECTION IS SUGGESTED. AMPHETAMINE- ?500 NG/ML BARBITURATE- ?200 NG/ML BENZODIAZEPINE- ?? 150 NG/ML BUPRENORPHINE- ? 10 NG/ML COCAINE- ?150 NG/ML METHAMPHETAMINES- 500 NG/ML METHADONE- ?200 NG/ML OPIATE- ? 100 NG/ML OXYCODONE- ?100 NG/ML PCP- ? 25 NG/ML PROPOXYPHENE- ? 300 NG/ML THC- ? 50 NG/ML TCA- ?300 NG/ML CREATININE (U) 80.7 39 - 259 MG/DL 11/13/2016 8:35 PM CDT [facility] 11/13/2016 8:22 PM CDT 11/13/2016 8:27 PM CDT us Generic Conversion Md OLSEN URINE ORDERABLES Final Result Performing Organization Address City/State/[facility] de Phone Number [facility] [address] [place] [address], * KEPPRA LEVEL (11/13/2016 7:24 PM CDT) KEPPRA 13.9 mcg/mL 11/17/2016 8:52 AM CDT [facility]QU[facility] BRIGGS Comment: Unable to flag abnormal result(s), please ?? refer to reference range(s) below: Therapeutic Levels: Drug Dosage ? Trough ? Peak 500 mg BID ?? 3.1-10.0 mcg/mL ?? 10.0-25.0 mcg/mL 1000 mg BID ?? 4.9-37.1 mcg/mL ?? 30.0-40.0 mcg/mL 1500 mg BID ?? 7.0-34.0 mcg/mL ?? 36.1-70.0 mcg/mL Toxic level: ??Not established This test was developed and its analytical performance characteristics have been determined by [employer] [place], [place]. It has not been cleared or approved by the [place]. Food and Drug Administration. This assay has been validated pursuant to the CLIA regulations and is used for clinical purposes. Test [facility], [facility], [address] [place] [address] Levon Brewer M.D., Ph.D., Director of Laboratories , CLIA [id number] SERUM SPECIMEN / Unknown 11/13/2016 7:24 PM CDT 11/13/2016 7:25 PM CDT us Generic Conversion Md [facility] Final R esult Performing Organization Address City/[facility]/ZIP Co de Phone Number [facility] [address] , [place] [phone] * TROPONIN, QUANT (11/13/2016 6:51 PM CDT) TROPONIN I <0.30 <0.30 ng/mL 11/13/2016 7:35 PM CDT [facility] SERUM OR PLASMA SPECIMEN / Unknown 11/13/2016 6:51 PM CDT 11/13/2016 6:55 PM CDT us Generic Conversion [facility] Final R esult Performing Organization Address City/[facility]/ZIP Co de Phone Number [facility] [address] [place] [address], [place] [phone] * CKMB(MB FRACTION ONLY) (11/13/2016 6:51 PM CDT) CK-MB 6.49 <7.70 ng/mL 11/13/2016 7:35 PM CDT [facility] SERUM OR PLASMA SPECIMEN / Unknown 11/13/2016 6:51 PM CDT 11/13/2016 6:55 PM CDT us Generic Conversion [facility] Final R esult [facility] [address] [place] [address], * (ABNORMAL) CK (CPK) (11/13/2016 6:51 PM CDT) CPK 1,718(H) 39 - 308 U/L 11/13/2016 7:36 PM CDT [facility] SERUM OR PLASMA SPECIMEN / Unknown 11/13/2016 6:51 PM CDT 11/13/2016 6:55 PM CDT us Generic Conversion [facility] Final R [place] Performing Organization Address City/[facility]/ZIP Co de Phone Number [facility] [address] [place] [address], * BNP (11/13/2016 6:51 PM CDT) B TYPE NATRIURETIC PEPTIDE 11.7 <100.0 pg/mL 11/13/2016 7:16 PM CDT [facility] WHOLE BLOOD SPECIMEN / Unknown 11/13/2016 6:51 PM CDT 11/13/2016 6:55 PM CDT us Generic Conversion [facility] Final R [place] Performing Organization Address City/[facility]/ZIP Co de Phone Number [facility] [address] [place] [address], * ETHANOL (11/13/2016 6:51 PM CDT) ALCOHOL S/P/B <0.010 <0.010 % 11/13/2016 7:19 PM CDT [facility] SERUM OR PLASMA SPECIMEN / Unknown 11/13/2016 6:51 PM CDT 11/13/2016 6:55 PM CDT us Generic Conversion Md [facility] Final R esult Performing Organization Address [facility] Co de Phone Number [facility] [address] [place] [address], [place] [phone] * PARTIAL THROMBOPLASTIN TIME,PTT (11/13/2016 6:51 PM CDT) PTT 28.1 25.5 - 37.6 SEC 11/13/2016 7:11 PM CDT [facility] PLASMA SPECIMEN / Unknown 11/13/2016 6:51 PM CDT 11/13/2016 6:54 PM CDT us Generic Conversion Md [facility] Final R esamirah Performing Organization Address [facility] Co de Phone Number [facility] [address] [place] [address], [place] [phone] * (ABNORMAL) PROTIME/INR, VENOUS (11/13/2016 6:51 PM CDT) PROTIME 12.6(H) 9.6 - 12.2 SEC 11/13/2016 7:11 PM CDT [facility] INR 1.1 11/13/2016 7:11 PM CDT [facility] Comment: Recommended INR Therapeutic Goals: ??2.0-3.0 Routine Therapy ??2.5-3.5 Mechanical Prosthetic Valves (High Risk) ??3.0-4.0 Acute TX (to prevent Systemic Embolism) The INR is used only for patients on stable oral anticoagulant therapy. It makes no significant contribution to the diagnosis or treatment of patients whose Protime is prolonged for other reasons. 11/13/2016 6:51 PM CDT 11/13/2016 6:54 PM CDT Generic Conversion [facility] Final R esamirah Performing Organization Address City/[facility]/ZIP Co de Phone Number [facility] [address] [place] [address], [place] [phone] * (ABNORMAL) COMPREHENSIVE METABOLIC PANEL (11/13/2016 6:51 PM CDT) [facility] GLUCOSE 117(H) 70 - 99 mg/dL 11/13/2016 7:16 PM CDT [facility] BUN 16 8 - 23 mg/dL 11/13/2016 7:16 PM CDT [facility] CREATININE S/P/B 0.70 0.70 - 1.20 mg/dL 11/13/2016 7:16 PM CDT [facility] SODIUM S/P/B 135(L) 136 - 145 mmol/L 11/13/2016 7:16 PM CDT [facility] POTASSIUM S/P/B 4.3 3.5 - 5.1 mmol/L 11/13/2016 7:16 PM CDT [facility] CHLORIDE S/P/B 95(L) 98 - 107 mmol/L 11/13/2016 7:16 PM CDT [facility] CO2 23 22 - 29 mmol/L 11/13/2016 7:16 PM CDT [facility] BILIRUBIN TOTAL S/P/B 0.6 0.2 - 1.2 mg/dL 11/13/2016 7:16 PM CDT [facility] CALCIUM S/P/B 9.7 8.6 - 10.2 mg/dL 11/13/2016 7:16 PM CDT [facility] ALKALINE PHOSPHATASE S/P/B 81 40 - 129 U/L 11/13/2016 7:16 PM CDT [facility] AST 44(H) 0 - 40 U/L 11/13/2016 7:16 PM CDT [facility] TOTAL PROTEIN S/P/B 7.5 6.4 - 8.3 g/dL 11/13/2016 7:16 PM CDT [facility] ALBUMIN S/P/B 4.8 3.5 - 5.2 g/dL 11/13/2016 7:16 PM CDT [facility] ALT 26 0 - 41 U/L 11/13/2016 7:16 PM CDT [facility] GLOBULIN 2.7 2.3 - 3.6 g/dL 11/13/2016 7:16 PM CDT [facility] A/G RATIO 1.8 1.0 - 2.0 11/13/2016 7:16 PM CDT [facility] ANION GAP 21(H) 8 - 20 11/13/2016 7:16 PM CDT [facility] EGFR NON-AFR. AMER. >60 >60 mL/min/1.7 3m'2 11/13/2016 7:16 PM CDT [facility] EGFR AFR. AMER. >60 >60 mL/min/1.7 '2 11/13/2016 7:16 PM CDT [facility] Comment: NOTE: eGFR is not calculated for patients <18 years of age. This is an estimated GFR (CKD EPI) and should not be used for calculating drug doses. 11/13/2016 6:51 PM CDT 11/13/2016 6:54 PM CDT us Generic Conversion [facility] Final R esult [facility] [address] [place] [address], [place] [phone] * (ABNORMAL) CBC W/DIFF AUTOMATED (11/13/2016 6:51 PM CDT) WBC 10.6 4.8 - 10.8 x10'3/uL 11/13/2016 7:01 PM CDT [facility] RBC 4.56(L) 4.70 - 6.10 x10'6/uL 11/13/2016 7:01 PM CDT [facility] HGB 14.6 14.0 - 18.0 G/DL 11/13/2016 7:01 PM CDT [facility] HCT 42.1(L) 43.0 - 54.0 % 11/13/2016 7:01 PM CDT [facility] MCV 92.3 80.0 - 94.0 FL 11/13/2016 7:01 PM CDT [facility] MCH 32.0(H) 27.0 - 31.0 PG 11/13/2016 7:01 PM CDT [facility] MCHC 34.7 32.0 - 36.0 G/DL 11/13/2016 7:01 PM CDT [facility] RDW 11.9 11.5 - 14.5 % 11/13/2016 7:01 PM CDT [facility] PLT 181 130 - 400 x10'3/uL 11/13/2016 7:01 PM CDT [facility] MPV 11.0 9.3 - 12.2 FL 11/13/2016 7:01 PM CDT [facility] IMMATURE GRANS % 0.3 0.0 - 1.0 % 11/13/2016 7:01 PM CDT [facility] NEUTROPHILS % 78.4(H) 43.0 - 65.0 % 11/13/2016 7:01 PM CDT [facility] LYMPHOCYTES % 15.1(L) 20.0 - 46.0 % 11/13/2016 7:01 PM CDT [facility] MONOCYTES % 5.9 5.0 - 12.0 % 11/13/2016 7:01 PM CDT [facility] EOSINOPHILS 0.1(L) 1.0 - 3.0 % 11/13/2016 7:01 PM CDT [facility] BASOPHILS 0.2 0.0 - 1.0 % 11/13/2016 7:01 PM CDT [facility] WHOLE BLOOD SPECIMEN / Unknown 11/13/2016 6:51 PM CDT 11/13/2016 6:54 PM CDT us Generic Conversion [facility] Final R esult [facility] [address] [place] [address], documented in this encounter Visit Diagnoses Diagnosis Epilepsy without status epilepticus, not intractable (CMS/HCC HHS/HCC) Unspecified epilepsy without mention of intractable epilepsy documented in this encounter Care Teams Face Cleaner Relationship Specialty Start Date End Date [place] [address] PCP - General 06/25/16 09/27/18 Frank Toure MD [address] [place] [address] [phone] [place] Manager Simulation CARDIOVASCULAR DISEASE 05/30/16 documented as of this encounter
--- OUTSIDE RECORDS SUMMARY | 2024-06-08 05:54 | XMS_ITS | Encounter Summary ---
Author Organization [facility] Address [address] [facility]. [place], [place] [address] [place] [address] Care Team Providers Care Manager Wound Care Name Role Phone Misael Maradiaga DO Primary Care Provider + [phone] Frank Toure MD Unavailable Vern, Kayla UPHOLSTERER APPRENTICE Primary Care Provider [phone] Vern, Kayla UPHOLSTERER APPRENTICE Primary Care Provider [phone] Vern, Kayla UPHOLSTERER APPRENTICE Primary Care Provider [phone] Vern, Kayla UPHOLSTERER APPRENTICE Primary Care Provider [phone] Misael Maradiaga DO Primary Care Provider + [phone] Burke Restrepo MD Primary Care Provider + [phone] Encounter Details Date Type Department Care Team (Latest Contact Info) Description 09/18/2015 Abstract [facility] Misael Maradiaga DO [address] [phone] Social History Tobacco Use Types Packs/Day Years [...] filedocumented in this encounter Care Teams Manager Wound Care Relationship Specialty Start Date End Date Misael Maradiaga DO PCP - General FAMILY PRACTICE 05/30/16 06/22/16 Kayla Porras NP [address] [place] [address] PCP - General 06/25/16 09/27/18 Kayla Porras NP [address] [place] [address] PCP - General 06/24/16 06/24/16 Kayla Porras NP [address] [facility] [id number] PCP - General 06/23/16 06/23/16 Kayla Porras NP [address] [place] [address] PCP - General 02/11/16 05/29/16 Misael Maradiaga DO PCP - General 02/02/16 02/10/16 Burke Restrepo MD [address] [place] [address] PCP - General 05/15/15 02/01/16 Frank Toure MD [address] [place] [address] [place] [employer] Trainer CARDIOVASCULAR DISEASE 05/30/16 documented as of this encounter
--- OUTSIDE RECORDS SUMMARY | 2024-06-08 05:54 | XMS_ITS | Encounter Summary ---
Author Organization [facility] Address [address] [facility]. [place], [place] [address] [place] [address] Care Team Providers Care Air Pollution Inspector Name Role Phone Misael Maradiaga DO Primary Care Provider + [phone] Frank Toure MD Unavailable Vern, Kayla FILAMENT WELDER Primary Care Provider [phone] Vern, Kayla FILAMENT WELDER Primary Care Provider [phone] Vern, Kayla FILAMENT WELDER Primary Care Provider [phone] Vern, Kayla FILAMENT WELDER Primary Care Provider [phone] Misael Maradiaga DO Primary Care Provider + [phone] Burke Restrepo MD Primary Care Provider + [phone] Encounter Details Date Type Department Care Team (Late st Contact Info) Description 08/28/2015 Abstract [facility] Family Medicine - [place] [address] [place] [phone] Misael Maradiaga DO [address] [place] [phone] Social History Tobacco Use Types Packs/Day Years Used Date Smoking Tobacco: Never Assessed Sex and Gender Information Value Date Recorded Sex Assigned at Not on file Legal Sex Male 10:23 PM CDT Gender Identity Not on file Sexual Orientation Not on file documented as of this encounter Last Filed Vital Signs Vital Sign Reading Time Taken Comments Blood Pressure 130/88 08/28/2015 7:13 AM CDT Pulse 100 08/28/2015 7:13 AM CDT Temperature - - Respiratory Rate - - Oxygen Saturation - - Inhaled Oxygen Concentration - - Weight 61.2 kg (135 lb) 08/28/2015 7:13 AM CDT Height - - Body Mass Index 21.14 07/24/2015 2:09 PM LODGE ATTENDANT documented in this encounter Functional Status documented as of this encounter Mental Status * Question Answer Entry Date Author Status Because of a physical, mental, or emotional condition, do you have serious difficulty concentrating, remembering, or making decisions? No 08/28/2017 2:38 PM CDT Loraine Staley RN A ctive documented in this encounter Progress Notes * Misael Chau Hiren, DO - 08/28/2015 7:00 AM CDT History of Present Illness HPI Free Text: 55M with PMH HTN and SZ, CVA Feb 2015, suffered another seizure and phenytoin toxicity, taken to [facility]. Dilantin was 35.2 and admitted to neuro. He was placed on keppra 250 bid and no sz were witness while inpatient. He states he had poppled his pill nottle down. His Dilantin remained stable. The decision was made to increase keppra to 500 bid, and stop Dilantin due to prior hx of non compliance. Amlodipine was restarted, MRI and MRA brain/neck neg for acute occlusion or stenosis. EEG was normal.He was sent to [facility] NED [place], and DC from [facility] on 08/22/2015 and to continue PT and OT. He was supposed to see a neurologist in [place], but on day of appt, he went to ER. He is supposed to rescheduled the neuro appt, but has done so yet Since DC to home, he has been feeling fine. He feels he is back to baseline He currently does have any [place], [place] Review of systems General: denies any fevers, [...] Problems 1. Alcohol abuse (305.00) (F10.10) 2. Establishing care with new doctor, encounter for (V65.8) (Z71.89) 3. History of CVA (cerebrovascular accident) (V12.54) (Z86.73) 4. Hypertension (401.9) (I10) 5. Imbalance (781.2) [...] 1. AmLODIPine Besylate 10 MG Oral Tablet; Therapy: (Recorded:28Aug2015) to Recorded 2. AmLODIPine Besylate 5 MG Oral Tablet; TAKE 1 TABLET DAILY DIRECTED; Last Rx:[id number] Ordered 3. Aspirin 81 MG Oral Tablet; TAKE 1 TABLET DAILY; Therapy: (Recorded:[id number]) to Recorded 4. Atorvastatin Calcium 40 MG Oral Tablet; Therapy: (Recorded:28Aug2015) to Recorded 5. Flomax 0.4 MG Oral Capsule; TAKE ONE CAPSULE BY MOUTH ONCE DAILY; Therapy: (Recorded:[id number]) to Recorded 6. Ibuprofen 800 MG Oral Tablet; TAKE 1 TABLET EVERY 8 HOURS NEEDED; Therapy: (Recorded:24Jul2015) to Recorded 7. Keppra 500 MG Oral Tablet; Therapy: (Recorded:28Aug2015) to Recorded 8. Phenytoin Sodium Extended 100 MG Oral Capsule; TAKE 1 CAPSULE 3 TIMES DAILY Requested for: 25Jul2015; Last Rx:[id number] Ordered 9. Pravastatin Sodium 40 MG Oral Tablet; TAKE 1 TABLET BY MOUTH EVERY DAY; Therapy: [id number] to (Evaluate:[id number]) Requested for: 24Jul2015; Last Rx:[id number] Ordered Allergies 1. No Known Drug Allergies Vitals Recorded: 28Aug2015 07:13AM Heart Rate 100 Systolic 130 Diastolic 88 Weight 135 lb BMI Calculated 21.14 BSA Calculated 1.71 Assessment 1. Hyperlipidemia (272.4) (E78.5) 2. Hypertension (401.9) (I10) 3. Seizures (780.39) (R56.9) 4. History of CVA (cerebrovascular accident) (V12.54) (Z86.73) Plan Alcohol abuse 1. Phenytoin ( Dilantin ); Status:Canceled - Manual Activation; Perform:[facility]; Due:23Aug2015;Ordered; For:Alcohol abuse; Ordered By:Misael Maradiaga; History of CVA (cerebrovascular accident) 2. Pravastatin Sodium 40 MG Oral Tablet Rx By: Misael Maradiaga; Dispense: 30 Days ; #:90 Tablet; Refill: 5; For: History of CVA (cerebrovascular accident); RACHEL = N; [facility] To[facility]; Last Updated By: Patricia Camilo; 08/28/2015 7:15:20 AM 3. Aspirin 81 MG Oral Tablet; TAKE 1 TABLET DAILY Rx By: Misael Maradiaga; Dispense: 90 Days ; #:90 Tablet; Refill: 3; For: History of CVA (cerebrovascular accident); RACHEL = N; Sent To: [facility] Hyperlipidemia 4. From Atorvastatin Calcium 40 MG Oral Tablet To Atorvastatin Calcium 40 MG Oral Tablet TAKE 1 TABLET DAILY DIRECTED Rx By: Misael Maradiaga; Dispense: 90 Days ; #:90 Tablet; Refill: 3; For: Hyperlipidemia; RACHEL = N; Sent To: [facility] Hypertension 5. AmLODIPine Besylate 5 MG Oral Tablet Rx By: Misael Maradiaga; Dispense: 30 Days ; #:30 Tablet; Refill: 5; For: Hypertension; RACHEL = N; Record; Last Updated By: Patricia Camilo; 08/28/2015 7:15:19 AM 6. From AmLODIPine Besylate 10 MG Oral Tablet To AmLODIPine Besylate 10 MG Oral Tablet TAKE 1 TABLET DAILY FOR BLOOD PRESSURE Rx By: Misael Maradiaga; Dispense: 90 Days ; #:90 Tablet; Refill: 3; For: Hypertension; RACHEL = N; Sent To: [facility] Seizures 7. Phenytoin Sodium Extended 100 MG Oral Capsule (Dilantin) Rx By: Misael Maradiaga; Dispense: 30 Days ; #:90 Capsule; Refill: 5; For: Seizures; RACHEL = N; Sent To: [facility]; Last Updated By: Patricia Camilo; 08/28/2015 7:15:18 AM 8. From Keppra 500 MG Oral Tablet To LevETIRAcetam 500 MG Oral Tablet (Keppra) TAKE 1 TABLET TWICE DAILY Rx By: Misael Maradiaga; Dispense: 90 Days ; #:180 Tablet; Refill: 0; For: Seizures; RACHEL = N; Sent To: [facility] Unlinked 9. Flomax 0.4 MG Oral Capsule (Tamsulosin HCl) Dispense: 0 Days ; #: Sufficient Capsule; Refill: 0; RACHEL = N; Record; Last Updated By: Patricia Camilo; 08/28/2015 7:15:19 AM 10. Ibuprofen 800 MG Oral Tablet Dispense: 10 Days ; #:30 Tablet; Refill: 0; RACHEL = N; Record; Last Updated By: Patricia Camilo; 08/28/2015 7:15:19 AM Discussion/Summary reviewed DC notes from hospital Will DC dilantin increase keppra to 500 bid per notes refilled x 3 mos Meds for BP, aspirin for hx of CVA, and statin for HLD was all refilled as well he will reschedule new pt appt with neurology f/u 6 mos Signatures Electronically signed by : Misael Maradiaga D.O.; Aug 28 2015 7:29AM LODGE ATTENDANT (Author) documented in this encounter Plan of Treatment Not on file documented as of this encounter Visit Diagnoses Not on filedocumented in this encounter Care Teams Air Pollution Inspector Relationship Specialty Start Date End Date Misael Maradiaga DO PCP - General FAMILY PRACTICE 05/30/16 06/22/16 Kayla Porras NP [address] [facility] [place] [id number] PCP - General 06/25/16 09/27/18 Kayla Porras NP [address] [place] [address] PCP - General 06/24/16 06/24/16 Kayla Porras NP [address] [place] [address] PCP - General 06/23/16 06/23/16 Kayla Porras NP [address] [place] [address] PCP - General 02/11/16 05/29/16 Misael Maradiaga DO PCP - General 02/02/16 02/10/16 Burke Restrepo MD [address] [place] [address] PCP - General 05/15/15 02/01/16 Frank Toure MD [address] [place] [address] [employer] Electronic Warfare Operator CARDIOVASCULAR DISEASE 05/30/16 documented as of this encounter
--- OUTSIDE RECORDS SUMMARY | 2024-06-08 05:54 | XMS_ITS | Encounter Summary ---
Author Organization [facility] - [facility] Address [address] [place] [address] [place] [address] Care Team Providers Care Separations Scientist Name Role Phone Frank Toure MD Unavailable Kayla Porras NP Primary Care Provider [phone] Encounter Details Date Type Department Care Team (Late st Contact Info) Description 10/22/2016 Abstract [facility] Medical Group Multispecialty Care - [facility] [address] [place] [address] Mark Devine MD [address] [place] [address] Social History Tobacco Use Types Packs/Day Years Used Date Smoking Tobacco: Never Assessed Sex and Gender Information Value Date Recorded Sex Assigned at Not on file Legal Sex Male 10:23 PM CDT Gender Identity Not on file Sexual Orientation Not on file documented as of this encounter Last Filed Vital Signs Vital Sign Reading Time Taken Comments Blood Pressure 128/76 10/22/2016 10:52 AM CDT Pulse 82 10/22/2016 10:52 AM CDT Temperature - - Respiratory Rate - - Oxygen Saturation - - Inhaled Oxygen Concentration - - Weight 61.2 kg (135 lb) 10/22/2016 10:52 AM CDT Height 180.3 cm (5' 11 ) 10/22/2016 10:52 AM CDT Body Mass Index 18.83 10/22/2016 10:52 AM [...] Progress Notes * Mark Devine MD - 10/22/2016 10:30 AM CDT Reason For Visit New Patient Visit History of Present Illness 56 yo man with a history of alcoholism (used to drink heavier, but in the last 6 months he has decreased his alcohol consumption to 1 beer a day ). He also has a history of alcohol induced/withdrawalseizures and a right sided hemorrhagic infarct. Referred to GI clinic for colon cancer screening. Patient denies any No nausea, vomiting, + dysphagia x 1 month mainly to meat/chicken, he tries to flush it w water to push it down, no regurgitation, no abdominal pain, no heart burn or acid reflux. occasional constipation/straining or diarrhea, no hematochezia or melena. No weight loss, he can't gain the weight, no prior abdominal surgeries. No family hx colon cancer. No prior colonoscopies. Review of Systems Constitutional: Negative for fevers, [...] 500 MG CAPS; TAKE CAPSULE PRN; Therapy: (Recorded:[id number]) to Recorded Dispense: 0 Days ; #: Sufficient Capsule; Refill: 0; RACHEL = N; Record; Last Updated By: Dina Martinez; 10/22/2016 10:04:12 AM 2. AmLODIPine Besylate 10 MG Oral Tablet; TAKE 1 TABLET DAILY FOR BLOOD PRESSURE Requested for: 26Apr2016; Last Rx:[id number] Ordered Rx By: Misael Maradiaga; Dispense: 90 Days ; #:90 Tablet; Refill: 3; For: Hypertension; RACHEL = N; Verified Transmission to [facility]; Last Updated By: [employer]; 04/26/2016 1:57:00 PM 3. Aspirin 81 MG Oral Tablet Delayed Release; TAKE 1 TABLET DAILY DIRECTED; Therapy: 28Jun2016 to (Evaluate:[id number]) Requested for: 28Jun2016; Last Rx:[id number] Ordered Rx By: Misael Maradiaga; Dispense: 90 Days ; #:90 Tablet Delayed Release; Refill: 1; For: Hyperlipidemia; RACHEL = N; Verified Transmission to [facility]; Last Updated By: [employer]; 06/28/2016 3:12:29 PM 4. Atorvastatin Calcium 40 MG Oral Tablet; TAKE 1 TABLET ONCE EVERY DAY AT BEDTIME (TO LOWER CHOLESTEROL); Therapy: 28Gso0526 to (Evaluate:29Mar2017) Requested for: [id number]; Last Rx:[id number] Ordered Rx By: Misael Maradiaga; Dispense: 30 Days ; #:1 X 30 Tablet Box; Refill: 5; For: Hyperlipidemia; RACHEL = N; Verified Transmission to [facility]; Last Updated By: [employer]; 09/30/2016 1:05:42 PM 5. LevETIRAcetam 1000 MG Oral Tablet; TK 1 T PO BID; Therapy: 29Aug2016 to Recorded Rx By: MONICA NEFF; Dispense: 30 Days ; #:60 TABS; Refill: 0; RACHEL = N; Record; Last Updated By: Patricia Camilo; 09/13/2016 2:04:38 PM 6. Tamsulosin HCl - 0.4 MG Oral Capsule; Take 1 cap daily Requested for: [id number]; Last Rx:[id number] Ordered Rx By: Misael Maradiaga; Dispense: 0 Days ; #:90 Capsule; Refill: 1; For: Health Maintenance; RACHEL = N; Verified Transmission to [facility]; Last Updated By: [employer]; 07/01/2016 1:26:16 PM Allergies 1. No Known Drug Allergies Recorded By: Dina Dennis; 07/24/2015 1:54:45 PM Physical Exam General: appearance: normal, alert, no distress, appears stated age HEENT: conjunctivae/corneas clear, anicteric sclerae, moist mucosa, poor dentition Lungs: clear to auscultation bilaterally, no added sounds Heart: RRR, normal S1 and S2, no loud murmur Abdomen: soft, no masses palpable, non-tender, non-distended, normoactive bowel sounds. Extremities: no edema Skin: No rashes or lesions, no jaundice Neuro: Appropriate, oriented x 3 Counseling chew food well Assessment 1. History of CVA (cerebrovascular accident) (V12.54) (Z86.73) 2. Dysphagia (787.20) (R13.10) 3. Screening for colon cancer (V76.51) (Z12.11) 4. Current every day smoker (305.1) (F17.200) 1. Average risk for colon cancer screening - overdue for his colonoscopy exam 2. Dysphagia to solids in the setting of chronic tobacco use and EtOH use in the past, endoscopic evaluation is warranted to exclude esophageal pathology and this can be done under same sedation 3. Tobacco use- counseled to quit RINKU Plan - Schedule colonoscopy screening and diagnostic EGD - Chew food well especially given his poor dentition - Split prep GoLYTELY - All questions answered - More recommendations to follow endoscopic evaluation - ok to continue baby ASA - RTC after scopes Patient presented with risks (can include but are not limited to: discomfort, missing lesions, allergic or adverse reaction to the sedative, perforation of the bowel which may require hospitalizationand surgery, bleeding, infection, aspiration ), benefits, and alternatives of the procedure(s) and they are agreeable to proceed as planned. Signatures Electronically signed by : Mark Devine MD; Oct 22 2016 11:04AM PROPOSAL MANAGER WRITER (Author) documented in this encounter Miscellaneous Notes * Letter - Mark Devine MD - 10/22/2016 10:30 AM CDT Letter Greeting Thank you for the referral on Bi Tabor. Attached is a copy of my evaluation. If you have any questions regarding my treatment evaluation, please feel free to contact me. Reason For Visit New Patient Visit History of Present Illness 56 yo man with a history of alcoholism (used to drink heavier, but in the last 6 months he has decreased his alcohol consumption to 1 beer a day ). He also has a history of alcohol induced/withdrawalseizures and a right sided hemorrhagic infarct. Referred to GI clinic for colon cancer screening. Patient denies any No nausea, vomiting, + dysphagia x 1 month mainly to meat/chicken, he tries to flush it w water to push it down, no regurgitation, no abdominal pain, no heart burn or acid reflux. occasional constipation/straining or diarrhea, no hematochezia or melena. No weight loss, he can't gain the weight, no prior abdominal surgeries. No family hx colon cancer. No prior colonoscopies. Review of Systems Constitutional: Negative for fevers, [...] 1 TABLET DAILY DIRECTED; Therapy: 28Jun2016 to (Evaluate:[id number]) Requested for: 28Jun2016; Last Rx:28Jun2016 Ordered 4. Atorvastatin Calcium 40 MG Oral Tablet; TAKE 1 TABLET ONCE EVERY DAY AT BEDTIME (TO LOWER CHOLESTEROL); Therapy: 30Sep2016 to (Evaluate:29Mar2017) Requested for: 30Sep2016; Last Rx:30Sep2016 Ordered 5. LevETIRAcetam 1000 MG Oral Tablet; TK 1 T PO BID; Therapy: 29Aug2016 to Recorded 6. Tamsulosin HCl - 0.4 MG Oral Capsule; Take 1 cap daily Requested for: 01Jul2016; Last Rx:[id number] Ordered Allergies 1. No Known Drug Allergies Physical Exam General: appearance: normal, alert, no distress, appears stated age HEENT: conjunctivae/corneas clear, anicteric sclerae, moist mucosa, poor dentition Lungs: clear to auscultation bilaterally, no added sounds Heart: RRR, normal S1 and S2, no loud murmur Abdomen: soft, no masses palpable, non-tender, non-distended, normoactive bowel sounds. Extremities: no edema Skin: No rashes or lesions, no jaundice Neuro: Appropriate, oriented x 3 Counseling chew food well Assessment 1. History of CVA (cerebrovascular accident) (V12.54) (Z86.73) 2. Dysphagia (787.20) (R13.10) 3. Screening for colon cancer (V76.51) (Z12.11) 4. Current every day smoker (305.1) (F17.200) 1. Average risk for colon cancer screening - overdue for his colonoscopy exam 2. Dysphagia to solids in the setting of chronic tobacco use and EtOH use in the past, endoscopic evaluation is warranted to exclude esophageal pathology and this can be done under same sedation 3. Tobacco use- counseled to quit RINKU Plan - Schedule colonoscopy screening and diagnostic EGD - Chew food well especially given his poor dentition - Split prep GoLYTELY - All questions answered - More recommendations to follow endoscopic evaluation - ok to continue baby ASA - RTC after scopes Patient presented with risks (can include but are not limited to: discomfort, missing lesions, allergic or adverse reaction to the sedative, perforation of the bowel which may require hospitalizationand surgery, bleeding, infection, aspiration ), benefits, and alternatives of the procedure(s) and they are agreeable to proceed as planned. Letter Closing Sincerely,. Mark Signatures Electronically signed by : Mark Devine MD; Oct 22 2016 11:04AM PROPOSAL MANAGER WRITER (Author) documented in this encounter Plan of Treatment Not on file documented as of this encounter Visit Diagnoses Not on filedocumented in this encounter Care Teams Separations Scientist Relationship Specialty Start Date End Date Kayla [place] [address] PCP - General 06/25/16 09/27/18 Frank Toure MD [address] [place] [address] [place] Accountant Helper CARDIOVASCULAR DISEASE 05/30/16 documented as of this encounter
--- OUTSIDE RECORDS SUMMARY | 2024-06-08 05:54 | XMS_ITS | Encounter Summary ---
Author Organization [facility] Address [address] [place], [place] [address] [place] [address] Care Team Providers Care Incident Response Analyst Name Role Phone Misael Maradiaga DO Primary Care Provider [phone] Frank Toure MD Unavailable Vern, Kayla MECHANICAL DESIGN ENGINEER FACILITIES Primary Care Provider [phone] Vern, Kayla MECHANICAL DESIGN ENGINEER FACILITIES Primary Care Provider [phone] VernKayla lopez MECHANICAL DESIGN ENGINEER FACILITIES Primary Care Provider [phone] Vern, Kayla MECHANICAL DESIGN ENGINEER FACILITIES Primary Care Provider [phone] Misael Maradiaga DO Primary Care Provider + [phone] Burke Restrepo MD Primary Care Provider + [phone] Encounter Details Date Type Department Care Team (Latest Contact Info) Description 07/16/2015 Abstract [facility] Medical Group Social [...] Progress Notes * Misael Maradiaga DO - 07/16/2015 10:58 AM CST Message Recorded as Task Date: 07/16/2015 10:35 AM, Created By: Bea Saleh Task Name: Follow Up Assigned To: [facility]-Nursing Team Regarding Patient: Bi Tabor, Status: Active Comment: Bea Saleh - 16 Jul 2015 10:35 AM TASK CREATED Caller: Malia, Consulting Specialist; General Medical Question; Malia from the shelter called needing something faxed for patient to be discharged on Jul [address] Maradiaga (who they asked for) but patient has a new patient appt scheduled next week with Kayla. They also need orders for Home Health, PT, and OT. You can call Malia back with questions at [phone] F# [phone] Message: Spoke to Malia at the rehab facility (unsure of name) in [place]. Advised that we have never seen patient, he does have a MECHANICAL DESIGN ENGINEER FACILITIES appt coming up, but we can't give orders to discharge patient from Rehab until we have seen the patient. She voiced understanding and will talk to her linux administrator. Pt was originally scheduled to see Kayla, but we did move his appt to Dr Maradiaga's schedule. His sister sees Dr Maradiaga, which is who they preferred anyway. I spoke to pt's sister, , she said that pt had a stroke back in February and has been inrehab for PT, OT, etc. We will see pt on 07/24/15 for his MECHANICAL DESIGN ENGINEER FACILITIES appt with Dr Maradiaga /jorge luis Signatures Electronically signed by : Misael Maradiaga D.O.; Jul 16 2015 11:03AM APPLICATIONS ADMINISTRATOR (Review) documented in this encounter Plan of Treatment Not on file documented as of this encounter Visit Diagnoses Not on filedocumented in this encounter Care Teams Incident Response Analyst Relationship Specialty Start Date End Date Misael Maradiaga DO PCP - General FAMILY PRACTICE 05/30/16 06/22/16 Kayla Porras NP [address] [facility] [place] [address] PCP - General 06/25/16 09/27/18 Kayla Porras NP [address] [facility] [place] [address] PCP - General 06/24/16 06/24/16 Kayla Porras NP [address] [facility] [place] [address] PCP - General 06/23/16 06/23/16 Kayla Porras, BOUCHRA [address] [facility] [place] [address] PCP - General 02/11/16 05/29/16 Misael Maradiaga DO PCP - General 02/02/16 02/10/16 Burke Restrepo MD [address] [facility] [place] [address] PCP - General 05/15/15 02/01/16 Frank Toure MD [address] [place] [address] [place] Certified Physical Therapist Assistant CARDIOVASCULAR DISEASE 05/30/16 documented as of this encounter
--- OUTSIDE RECORDS SUMMARY | 2024-06-08 05:54 | XMS_ITS | Encounter Summary ---
Author Organization [facility] Address [address] [place], [place] [address] [place] [address] Care Team Providers Care Still Tender Name Role Phone Misael Maradiaga DO Primary Care Provider + [phone] Frank Toure MD Unavailable Vern, Kayla KOSHER INSPECTOR Primary Care Provider [phone] Vern, Kayla KOSHER INSPECTOR Primary Care Provider [phone] Vern, Kayla KOSHER INSPECTOR Primary Care Provider [phone] Vern, Kayla KOSHER INSPECTOR Primary Care Provider [phone] Misael Maradiaga DO Primary Care Provider + [phone] Burke Restrepo MD Primary Care Provider + [phone] Encounter Details Date Type Department Care Team (Latest Contact Info) Description 12/31/2015 Abstract [facility] Medical Group Misael Maradiaga DO [address] [id number] Social History Tobacco Use Types Packs/Day Years [...] on filedocumented in this encounter Care Teams Still Tender Relationship Specialty Start Date End Date Misael Maradiaga DO PCP - General FAMILY PRACTICE 05/30/16 06/22/16 Kayla Porras NP [address] [facility] [place] [address] PCP - General 06/25/16 09/27/18 Kayla Porras NP [address] [facility] [place] [address] PCP - General 06/24/16 06/24/16 Kayla Porras NP [address] [facility] [id number] PCP - General 06/23/16 06/23/16 Kayla Porras NP [address] [facility] [place] [address] PCP - General 02/11/16 05/29/16 Misael Maradiaga DO PCP - General 02/02/16 02/10/16 Burke Restrepo MD [address] [facility] [place] [address] PCP - General 05/15/15 02/01/16 Frank Toure MD [address] [place] [address] [place] Clerical Support CARDIOVASCULAR DISEASE 05/30/16 documented as of this encounter
--- OUTSIDE RECORDS SUMMARY | 2024-06-08 05:54 | XMS_ITS | Encounter Summary ---
Author Organization [facility] - [facility] Address [address] [facility] [place] [address] [place] [address] Care Team Providers Care Lineworker Name Role Phone Frank Toure MD Unavailable Kayla Porras NP Primary Care Provider [phone] Encounter Details Date Type Department Care Team (Latest Contact Info) Description 09/06/2016 Abstract [facility] Medical Group Social [...] on filedocumented in this encounter Care Teams Lineworker Relationship Specialty Start Date End Date Kay[place] [address] PCP - General 06/25/16 09/27/18 Frank Toure MD [address] [place] [address] [employer] Boiler Repairman CARDIOVASCULAR DISEASE 05/30/16 documented as of this encounter
--- OUTSIDE RECORDS SUMMARY | 2024-06-08 05:54 | XMS_ITS | Encounter Summary ---
Author Organization [facility] Address [address] [facility] [place], [place] [address] [place] [address] Care Team Providers Care Faucets Assembler Name Role Phone Misael Maradiaga DO Primary Care Provider + [phone] Frank Toure MD Unavailable Vern, Kayla RADIO TIME SALESPERSON Primary Care Provider [phone] Vern, Kayla RADIO TIME SALESPERSON Primary Care Provider [phone] VernKayla lopez RADIO TIME SALESPERSON Primary Care Provider [phone] Vern, Kayla RADIO TIME SALESPERSON Primary Care Provider [phone] Misael Maradiaga DO Primary Care Provider + [phone] Burke Restrepo MD Primary Care Provider + [phone] Encounter Details Date Type Department Care Team (Latest Contact Info) Description 07/25/2015 Abstract [facility] Medical Group Social History Tobacco Use [...] on filedocumented in this encounter Care Teams Faucets Assembler Relationship Specialty Start Date End Date Misael Maradiaga DO PCP - General FAMILY PRACTICE 05/30/16 06/22/16 Kayla Porras NP [address] [place] [address] PCP - General 06/25/16 09/27/18 Kayla Porras NP [address] [place] [address] PCP - General 06/24/16 06/24/16 Kayla Porras NP [address] [place] [address] PCP - General 06/23/16 06/23/16 Kayla Porras NP [address] [place] [address] PCP - General 02/11/16 05/29/16 Misael Maradiaga DO PCP - General 02/02/16 02/10/16 Burke Restrepo MD [address] [place] [address] PCP - General 05/15/15 02/01/16 Frank Toure MD [address] [place] [address] [employer] Paving Rammer CARDIOVASCULAR DISEASE 05/30/16 documented as of this encounter
--- OUTSIDE RECORDS SUMMARY | 2024-06-08 05:54 | XMS_ITS | Encounter Summary ---
Author Organization [facility] - [facility] Address [address] [facility] [place] [address] [place] [address] Care Team Providers Care Performance Tester Name Role Phone Frank Toure MD Unavailable Kayla Porras NP Primary Care Provider [phone] Encounter Details Date Type Department Care Team (Latest Contact Info) Description 08/29/2016 Abstract [facility] Medical Group Social History Tobacco [...] on filedocumented in this encounter Care Teams Performance Tester Relationship Specialty Start Date End Date Kayla Porras [place] [address] PCP - General 06/25/16 09/27/18 Frank Toure MD [address] [place] [address] [employer] Newspaper Subscription Solicitor CARDIOVASCULAR DISEASE 05/30/16 documented as of this encounter
--- OUTSIDE RECORDS SUMMARY | 2024-06-08 05:54 | XMS_ITS | Encounter Summary ---
Author Organization [facility] Address [address] [facility]. [place], [place] [address] [place] [address] Care Team Providers Care Silver Cleaner Name Role Phone Misael Maradiaga DO Primary Care Provider + [phone] Frank Toure MD Unavailable Vern, Kayla BOILERMAKER [employer]TR[employer] STEAM PLANT Primary Care Provider [phone] Vern, Kayla BOILERMAKER [employer]ANT Primary Care Provider [phone] Vern, Kayla BOILERMAKER [employer]ANT Primary Care Provider [phone] Vern, Kayla BOILERMAKER [employer]TR[employer] STEAM PLANT Primary Care Provider [phone] Misael Maradiaga DO Primary Care Provider + [phone] Burke Restrepo MD Primary Care Provider + [phone] Encounter Details Date Type Department Care Team (Late st Contact Info) Description 09/25/2015 Abstract [facility] Family Medicine - [address] [phone] Misael Maradiaga DO [address] [place] [phone] Social History Tobacco Use Types Packs/Day Years Used Date Smoking Tobacco: Never Assessed Sex and Gender Information Value Date Recorded Sex Assigned at Not on file Legal Sex Male 10:23 PM CDT Gender Identity Not on file Sexual Orientation Not on file documented as of this encounter Last Filed Vital Signs Vital Sign Reading Time Taken Comments Blood Pressure 117/74 09/25/2015 2:45 PM CDT Pulse 86 09/25/2015 2:45 PM CDT Temperature - - Respiratory Rate - - Oxygen Saturation - - Inhaled Oxygen Concentration - - Weight 61.7 kg (136 lb) 09/25/2015 2:45 PM CDT Height - - Body Mass Index 21.3 07/24/2015 2:09 PM WATERWORKS OPERATOR documented in this encounter Functional Status documented as of this encounter Mental Status * Question Answer Entry Date Author Status Because of a physical, mental, or emotional condition, do you have serious difficulty concentrating, remembering, or making decisions? No 08/28/2017 2:38 PM CDT Loraine Staley RN A ctive documented in this encounter Progress Notes * Misael Chau Hiren, DO - 09/25/2015 3:00 PM CDT History of Present Illness HPI Free Text: 55M here for renew of meds he states he is out of his cholesterol, sz meds, BP meds and aspirin. he is upset why he is not getting any refills He has not discussed with pharmacy yet He does not have his pill bottles He was only dispensed 30 tab, and wants more refills Otherwise, he has no other c/o Review of systems General: denies any fevers, chills. Gastrointestinal: Patient denies any nausea, vomiting, diarrhea or constipation Cardiovascular: Patient denies Chest pain, shortness of breath. Physical Exam General:NAD Eyes: Conjunctiva and lids: no swelling, erythema or discharge Oropharynx: normal without erythema, edema, exudate or lesions Neck: Supple without adenopathy, trachea midline Lungs: Clear to auscultation bilaterally without wheezing, rhonchi or crackles. No increase work ofbreathing or signs of respiratory distress Heart: Regular rate and rhythm without murmurs, clicks or bruits. Neuro: grossly intact. Psych: Normal mood, normal [...] Requested for: 28Aug2015; Last Rx:28Aug2015 Ordered 5. Benzonatate 200 MG Oral Capsule; TAKE 1 CAPSULE 3 times daily as needed for cough; Therapy: 02Sep2015 to (Evaluate:12Sep2015) Requested for: 02Sep2015; Last Rx:02Sep2015 Ordered 6. LevETIRAcetam 500 MG Oral Tablet; TAKE 1 TABLET TWICE DAILY Requested for: 29Aug2015; Last Rx:29Aug2015 Ordered 7. Robitussin DM 100-10 MG/5ML Oral Syrup; TAKE 5 ML EVERY 4 TO 6 HOURS NEEDED; Therapy: 02Sep2015 to (Evaluate:06Sep2015) Requested for: 02Sep2015; Last Rx:02Sep2015 Ordered 8. Tamsulosin HCl - 0.4 MG Oral Capsule; Therapy: (Recorded:25Sep2015) to Recorded Allergies 1. No Known Drug Allergies Vitals Recorded: 25Sep2015 02:45PM Heart Rate 86 Systolic 117 Diastolic 74 Weight 136 lb BMI Calculated 21.3 BSA Calculated 1.72 Assessment 1. Hypertension (401.9) (I10) 2. Hyperlipidemia (272.4) (E78.5) 3. Seizures (780.39) (R56.9) Plan Health Maintenance 1. Benzonatate 200 MG Oral Capsule Rx By: Nas Higuera; Dispense: 10 Days ; #:30 Capsule; Refill: 0; For: Health Maintenance; RACHEL = N; Sent To: [facility]; Last Updated By: Patricia Camilo; 09/25/2015 2:45:27 PM 2. Robitussin DM 100-10 MG/5ML Oral Syrup Rx By: Nas Higuera; Dispense: 4 Days ; #:120 ML; Refill: 0; For: Health Maintenance; RACHEL = N; Sent To: [facility]; Last Updated By: Patricia Camilo; 09/25/2015 2:45:27 PM Discussion/Summary HTN controlled cont meds discussed with pt at length regarding med refills Per my last note, I had already rx 90 day supply with numerous refills He has not contacted pharmacy, I suspect he has refills as they may have given him 30 day supply due to insurance reasons Pt will call them, and will let me know if I need to order more meds Signatures Electronically signed by : Misael Maradiaga D.O.; Sep 25 2015 3:43PM WATERWORKS OPERATOR (Author) documented in this encounter Plan of Treatment Not on file documented as of this encounter Visit Diagnoses Not on filedocumented in this encounter Care Teams Silver Cleaner Relationship Specialty Start Date End Date Misael Maradiaga DO PCP - General FAMILY PRACTICE 05/30/16 06/22/16 Kayla Por[place] [address] PCP - General 06/25/16 09/27/18 Kayla Por[place] [address] PCP - General 06/24/16 06/24/16 Kayla Por[place] [address] PCP - General 06/23/16 06/23/16 Kayla Por[place] [address] PCP - General 02/11/16 05/29/16 Misael Maradiaga DO PCP - General 02/02/16 02/10/16 Burke Restrepo MD [address] [place] [address] PCP - General 05/15/15 02/01/16 Frank Toure MD [address] [place] [phone] Martha Gold Nib Grinder CARDIOVASCULAR DISEASE 05/30/16 documented as of this encounter
--- OUTSIDE RECORDS SUMMARY | 2024-06-08 05:54 | XMS_ITS | Encounter Summary ---
Author Organization [facility] Address [address] [facility] [place] [address] [place] [address] Care Team Providers Care Interventional Nurse Name Role Phone Frank Toure MD Unavailable Kayla Porras NP Primary Care Provider [phone] Encounter Details Date Type Department Care Team (Latest Contact Info) Description 09/27/2016 Abstract [facility] Medical [facility] Social History [...] on filedocumented in this encounter Care Teams Interventional Nurse Relationship Specialty Start Date End Date Kay[place] [address] PCP - General 06/25/16 09/27/18 Frank Toure MD [address] [place] [address] Chivo Radio Electronics Technician CARDIOVASCULAR DISEASE 05/30/16 documented as of this encounter
--- OUTSIDE RECORDS SUMMARY | 2024-06-08 05:54 | XMS_ITS | Encounter Summary ---
Author Organization [facility] Address [address] [facility]. [place], [place] [address] [place] [address] Care Team Providers Care Architectural Technologist Name Role Phone Misael Maradiaga DO Primary Care Provider + [phone] Frank oTure MD Unavailable Vern, Kayla COMMODITY MANAGER Primary Care Provider [phone] Vern, Kayla COMMODITY MANAGER Primary Care Provider [phone] Vern, Kayla COMMODITY MANAGER Primary Care Provider [phone] Vern, Kayla COMMODITY MANAGER Primary Care Provider [phone] Misael Maradiaga DO Primary Care Provider + [phone] Burke Restrepo MD Primary Care Provider + [phone] Burke Restrepo MD Primary Care Provider + [phone] Encounter Details Date Type Department Care Team (Late st Contact Info) Description 05/09/2015 Emergency [facility] [place] [address] Sharla Alvares MD Social History Tobacco Use Types Packs/Day [...] Date/Time Associated Diagnosis Comments COMPREHENSIVE METABOLIC PANEL STAT 05/09/2015 9:59 AM BOOKIE CBC W/DIFF AUTOMATED STAT 05/09/2015 9:59 AM BOOKIE PHENYTOIN STAT 05/09/2015 9:59 AM BOOKIE ETHANOL STAT 05/09/2015 9:59 AM BOOKIE documented in this encounter Results * ETHANOL (05/09/2015 9:59 AM BOOKIE) ALCOHOL S/P/B <0.010 <0.010 % 05/09/2015 12:00 PM BOOKIE [facility] SERUM OR PLASMA SPECIMEN / Unknown 05/09/2015 9:59 AM BOOKIE 05/09/2015 11:46 AM BOOKIE us Generic Conversion Md [facility] Final R esult Performing Organization Address City/[facility]/ZIP Co de Phone Number [facility] [address] [place] [address], * PHENYTOIN (05/09/2015 9:59 AM BOOKIE) DOSE UNKNOWN 05/09/2015 9:52 AM BOOKIE [facility] PHENYTOIN 11.5 10 - 20 mcg/mL 05/09/2015 11:01 AM BOOKIE [facility] Comment: ? THERAPEUTIC: 10.0-20.0 ?TOXIC: >30.0 05/09/2015 9:59 AM BOOKIE 05/09/2015 10:04 AM BOOKIE us Generic Conversion Md [facility] Final R esult [facility] [address] [place] [address], [place] [phone] * (ABNORMAL) COMPREHENSIVE METABOLIC PANEL (05/09/2015 9:59 AM BOOKIE) [facility] Signature GLUCOSE 136(H) 70 - 99 mg/dL 05/09/2015 10:48 AM [facility] BUN 6(L) 8 - 23 mg/dL 05/09/2015 10:48 AM [facility] CREATININE S/P/B 0.56(L) 0.70 - 1.20 mg/dL 05/09/2015 10:48 AM [facility] SODIUM S/P/B 135(L) 136 - 145 mmol/L 05/09/2015 10:48 AM [facility] POTASSIUM S/P/B 3.6 3.5 - 5.1 mmol/L 05/09/2015 10:48 AM [facility] CHLORIDE S/P/B 94(L) 98 - 107 mmol/L 05/09/2015 10:48 AM [facility] CO2 29 22 - 29 mmol/L 05/09/2015 10:48 AM [facility] BILIRUBIN TOTAL S/P/B 0.5 0.2 - 1.2 mg/dL 05/09/2015 10:48 AM [facility] CALCIUM S/P/B 9.4 8.6 - 10.2 mg/dL 05/09/2015 10:48 AM [facility] ALKALINE PHOSPHATASE S/P/B 163(H) 40 - 129 IU/L 05/09/2015 10:48 AM [facility] AST 33 0 - 40 IU/L 05/09/2015 10:48 AM [facility] TOTAL PROTEIN S/P/B 7.7 6.4 - 8.3 g/dL 05/09/2015 10:48 AM [facility] ALBUMIN S/P/B 4.6 3.5 - 5.2 g/dL 05/09/2015 10:48 AM [facility] ALT 19 0 - 41 IU/L 05/09/2015 10:48 AM [facility] GLOBULIN 3.1 2.3 - 3.6 g/dL 05/09/2015 10:48 AM [facility] A/G RATIO 1.5 1.0 - 2.0 05/09/2015 10:48 AM [facility] ANION GAP 16 8 - 20 05/09/2015 10:48 AM [facility] EGFR NON-AFR. AMER. >60 >60 mL/min/1.7 3m'2 05/09/2015 10:48 AM [facility] EGFR AFR. AMER. >60 >60 mL/min/1.7 3m'2 05/09/2015 10:48 AM [facility] Comment: NOTE: eGFR is not calculated for patients <18 years of age. This is an estimated GFR (CKD EPI) and should not be used for calculating drug doses. 05/09/2015 9:59 AM BOOKIE 05/09/2015 10:04 AM BOOKIE us Generic Conversion Md [facility] Final R esult [facility] [address] [place] [address], * (ABNORMAL) CBC W/DIFF AUTOMATED (05/09/2015 9:59 AM BOOKIE) WBC 5.6 4.8 - 10.8 X10'3/uL 05/09/2015 10:07 AM [facility] RBC 4.14(L) 4.70 - 6.10 X10'6/uL 05/09/2015 10:07 AM [facility] HGB 13.9(L) 14.0 - 18.0 g/dL 05/09/2015 10:07 AM [facility] HCT 39.9(L) 43.0 - 54.0 % 05/09/2015 10:07 AM [facility] MCV 96.4(H) 80.0 - 94.0 fL 05/09/2015 10:07 AM [facility] MCH 33.6(H) 27.0 - 31.0 pg 05/09/2015 10:07 AM [facility] MCHC 34.8 32.0 - 36.0 g/dL 05/09/2015 10:07 AM [facility] RDW 11.3(L) 11.5 - 14.5 % 05/09/2015 10:07 AM [facility] PLT 191 130 - 400 X10'3/uL 05/09/2015 10:07 AM [facility] MPV 9.9 9.3 - 12.2 fL 05/09/2015 10:07 AM [facility] DIFFERENTIAL TYPE AUTOMATED 05/09/2015 10:07 AM [facility] NEUTROPHILS % 65.8(H) 43.0 - 65.0 % 05/09/2015 10:07 AM [facility] LYMPHOCYTES % 22.5 20.0 - 46.0 % 05/09/2015 10:07 AM [facility] MONOCYTES % 9.7 5.0 - 12.0 % 05/09/2015 10:07 AM [facility] EOSINOPHILS 1.4 1.0 - 3.0 % 05/09/2015 10:07 AM [facility] BASOPHILS 0.4 0.0 - 1.0 % 05/09/2015 10:07 AM BOOKIE [facility] IMMATURE GRANS % 0.2 0.0 - 1.0 % 05/09/2015 10:07 AM BOOKIE [facility] 05/09/2015 9:59 AM BOOKIE 05/09/2015 10:04 AM BOOKIE us Generic Conversion Md [facility] Final R esult [facility] [address] [place] [address], documented in this encounter Visit Diagnoses Diagnosis Convulsions (CMS/HCC HHS/HCC) Other convulsions documented in this encounter Care Teams Architectural Technologist Relationship Specialty Start Date End Date Misael Maradiaga DO PCP - General FAMILY PRACTICE 05/30/16 06/22/16 Kayla Porras NP [address] [place], [place] [id number] PCP - General 06/25/16 09/27/18 Kayla Porras NP [address] [place], [place] [id number] [phone] PCP - General 06/24/16 06/24/16 Kayla Porras NP [address] [place] [address] PCP - General 06/23/16 06/23/16 Kayla Porras NP [address] [place], [place] [address] [phone] PCP - General 02/11/16 05/29/16 Misael Maradiaga DO PCP - General 02/02/16 02/10/16 Burke Restrepo MD [address] [place] [address] PCP - General 05/15/15 02/01/16 Burke Restrepo MD [address] [place] [address] PCP - General 05/09/15 05/14/15 Frank Toure MD [address] [place] [phone] Chivo Route Rider Supervisor CARDIOVASCULAR DISEASE 05/30/16 documented as of this encounter
--- OUTSIDE RECORDS SUMMARY | 2024-06-08 05:54 | XMS_ITS | Encounter Summary ---
Author Organization [facility] Address [address] [facility] [place] [address] [place] [address] Care Team Providers Care Demolition Specialist Name Role Phone Frank Toure MD Unavailable Kayla Porras NP Primary Care Provider [phone] Encounter Details Date Type Department Care Team (Late st Contact Info) Description 11/15/2016 Orders Only [facility] [address] [place] [phone] , Jerica Cordon MD Social History Tobacco [...] Date/Time Associated Diagnosis Comments MRI BRAIN WWO CON 11/15/2016 10: 16 PM CDT documented in this encounter Results * MRI BRAIN WWO CON (11/15/2016 10:16 PM CDT) Anatomical Region Laterality Modality Head Magnetic Resonan ce 11/15/2016 10:1 6 PM CDT Narrative 11/15/2016 12:00 AM CDT BI TABOR ? Admit/Service Date: 11/13/16 ?? Acct: [id number] ?Discharge Date: ?? : 1960 ??Sex: M ?Ord Site: [facility] ?? Pt Type: ADM IN ? Ordering MD: JIN QUINTANA MD ? Study Date ? Report # ?Order # ? Ext Order ID ?? 11/15/16 ? [id number] ? [id number] ?[id number] ? Proc Code: ? BRNW+WOC ? Procedure Description: ?? MRI Brain WWO ? IMPRESSION: ? 1. Exam is compromised by motion artifact. Grossly, no acute brain ?? lesion is demonstrated. ?? 2. Moderate right frontal/supraorbital scalp soft tissue swelling ?? suggesting contusion and hematoma. Please correlate clinically. ?? 3. Chronic blowout fracture of the left orbit medial wall. ?? 4. Chronic small vessel ischemic changes with multiple chronic lacunar ?? infarcts of the basal ganglia brainstem. Additional chronic right ?? occipital lobe infarct. ?? 5. Moderate diffuse brain atrophy. ?? 6. Enhancing mass lesion of the right maxillary sinus measuring 1.9 cm. ?? Benign etiology is favored, but neoplasm is not excluded. Nonemergent ?? ENT consultation is recommended. ?? 7. Mild post inflammatory sinus disease elsewhere. ? EXAMINATION: MRI brain with/without contrast. ? EXAM DATE/TIME: 11/15/2016 5:23 PM ? CLINICAL HISTORY: Seizures. Fall with head injury. Headache and ?? dizziness. ? COMPARISON: 02/03/2016 ? TECHNIQUE: Multiplanar, multisequence imaging of the brain is obtained ?? before and after uneventful intravenous administration of 10 mL ?? MultiHance . ? FINDINGS: ??Exam is compromised by motion artifact obscuring most ?? sequences. Grossly, no acute intracranial hemorrhage, acute infarct, ?? parenchymal mass or midline shift. Mild diffuse brain atrophy. Mild ?? chronic small vessel ischemic changes in the white matter bilaterally. ?? Additional foci of chronic gliosis in the basal ganglia and brainstem ?? including multiple small chronic lacunar infarcts of the basal ganglia ?? and brainstem. Moderate diffuse cerebral and cerebellar atrophy. Chronic ?? infarct with focal encephalomalacia of the right occipital lobe inferior ?? aspect. The pituitary, infundibulum and visualized optic tracts are ?? unremarkable. No cerebellar tonsillar ectopia. Enhancing mass of the ?? right maxillary sinus anterior aspect measures 1.9 x 1.1 cm. This is ?? homogeneously enhancing and is similar to prior exams. No kate bone ?? destruction. Mild post inflammatory changes of the paranasal sinuses ?? otherwise with mild diffuse atherosclerotic enhancement. Mastoid air ?? cells are grossly clear. Chronic dental disease with prior tooth ?? extractions. Moderate swelling/thickening of the right frontal scalp ?? compatible with contusion/hematoma extending to the supraorbital region. ?? This extends across the midline toward the left. Chronic blowout ?? fracture of the left orbit medial wall. Well-circumscribed subcutaneous ?? lesion of the left posterior scalp, compatible with a sebaceous cyst. ? Electronically Signed By: Sean Steele11/15/2016 10:33 PM ? Procedure Note Sean Steele MD - 11/15/2016 BI TABOR Admit/Service Date:11/13/16 Acct: [id number] Discharge Date: : 1960 Sex: M Ord Site: [facility] Pt Type: ADM IN Ordering MD:JIN QUINTANA MD Study Date Report # Order # Ext Order ID 11/15/16 [id number] Proc Code: BRNW+WOC Procedure Description: MRI Brain WWO IMPRESSION: 1. Exam is compromised by motion artifact. Grossly, no acute brain lesion is demonstrated. 2. Moderate right frontal/supraorbital scalp soft tissue swelling suggesting contusion and hematoma. Please correlate clinically. 3. Chronic blowout fracture of the left orbit medial wall. 4. Chronic small vessel ischemic changes with multiple chronic lacunar infarcts of the basal ganglia brainstem. Additional chronic right occipital lobe infarct. 5. Moderate diffuse brain atrophy. 6. Enhancing mass lesion of the right maxillary sinus measuring 1.9 cm. Benign etiology is favored, but neoplasm is not excluded. Nonemergent ENT consultation is recommended. 7. Mild post inflammatory sinus disease elsewhere. EXAMINATION: MRI brain with/without contrast. EXAM DATE/TIME: 11/15/2016 5:23 PM CLINICAL HISTORY: Seizures. Fall with head injury. Headache and dizziness. COMPARISON: 02/03/2016 TECHNIQUE: Multiplanar, multisequence imaging of the brain is obtained before and after uneventful intravenous administration of 10 mL MultiHance . FINDINGS: Exam is compromised by motion artifact obscuring most sequences. Grossly, no acute intracranial hemorrhage, acute infarct, parenchymal mass or midline shift. Mild diffuse brain atrophy. Mild chronic small vessel ischemic changes in the white matter bilaterally. Additional foci of chronic gliosis in the basal ganglia and brainstem including multiple small chronic lacunar infarcts of the basal ganglia and brainstem. Moderate diffuse cerebral and cerebellar atrophy. Chronic infarct with focal encephalomalacia of the right occipital lobe inferior aspect. The pituitary, infundibulum and visualized optic tracts are unremarkable. No cerebellar tonsillar ectopia. Enhancing mass of the right maxillary sinus anterior aspect measures 1.9 x 1.1 cm. This is homogeneously enhancing and is similar to prior exams. No kate bone destruction. Mild post inflammatory changes of the paranasal sinuses otherwise with mild diffuse atherosclerotic enhancement. Mastoid air cells are grossly clear. Chronic dental disease with prior tooth extractions. Moderate swelling/thickening of the right frontal scalp compatible with contusion/hematoma extending to the supraorbital region. This extends across the midline toward the left. Chronic blowout fracture of the left orbit medial wall. Well-circumscribed subcutaneous lesion of the left posterior scalp, compatible with a sebaceous cyst. Electronically Signed By: Sean Steele11/15/2016 10:33 PM us Generic Conversion Md OLSEN MRI Final R esult documented in this encounter Visit Diagnoses Not on filedocumented in this encounter Care Teams Demolition Specialist Relationship Specialty Start Date End [place] [address] PCP - General 06/25/16 09/27/18 Frank Toure MD [address] [place] [address] Chivo Jockey Valet CARDIOVASCULAR DISEASE 05/30/16 documented as of this encounter
--- OUTSIDE RECORDS SUMMARY | 2024-06-08 05:54 | XMS_ITS | Encounter Summary ---
Author Organization [facility] Address [address] [facility] [place] [address] [place] [address] Care Team Providers Care Baby Formula Worker Name Role Phone Frank Toure MD Unavailable VernKayla lopez [employer] Primary Care Provider [phone] VernKyala lopez [employer] Primary Care Provider [phone] VernKayla lopez [employer] Primary Care Provider [phone] Encounter Details Date Type Department Care Team (Late st Contact Info) Description 06/23/[address] [facility] [place] [address] Misael Maradiaga, DO [address] [phone] Social History Tobacco Use Types Packs/Day Years [...] Associated Diagnosis Comments PROSTATE SPECIFIC ANTIGEN,SCREENING Routine 06/23/2016 11:13 AM MANAGER CORPORATE RESPONSIBILITY HEPATITIS C ANTIBODY Routine 06/23/2016 11:13 AM MANAGER CORPORATE RESPONSIBILITY documented in this encounter Results * HEPATITIS C ANTIBODY (06/23/2016 11:13 AM MANAGER CORPORATE RESPONSIBILITY) HEPATITIS C AB NON-REACTI VE NON-REACTI VE 06/24/2016 7:41 PM MANAGER CORPORATE RESPONSIBILITY [facility] Comment: TESTING PERFORMED AT [facility] [address] [place] [address] SERUM OR PLASMA SPECIMEN / Unknown 06/23/2016 11:13 AM MANAGER CORPORATE RESPONSIBILITY 06/23/2016 10:13 PM MANAGER CORPORATE RESPONSIBILITY us Generic Conversion Md [facility] Final R esult Performing Organization Address City/[facility]/ZIP Co de Phone Number [facility] [address] [place] [address], [place] [phone] * PROSTATE SPECIFIC ANTIGEN,SCREENING (06/23/2016 11:13 AM MANAGER CORPORATE RESPONSIBILITY) Pathologist [facility] PSA 0.461 <4.0 ng/mL 06/23/2016 10:45 PM MANAGER CORPORATE RESPONSIBILITY [facility] Comment: TEST WAS PERFORMED USING THE SILVIA METHOD. ??PSA VALUES OBTAINED WITH OTHER ASSAY METHODS OR KITS CANNOT BE USED INTERCHANGEABLY WITH RESULTS OBTAINED BY THE SILVIA METHOD. SERUM SPECIMEN / Unknown 06/23/2016 11:13 AM MANAGER CORPORATE RESPONSIBILITY 06/23/2016 10:12 PM MANAGER CORPORATE RESPONSIBILITY us Generic Conversion Md [facility] Final R esult [facility] [address] [place] [address], [place] [phone] documented in this encounter Visit Diagnoses Diagnosis Encounter for screening for malignant neoplasm of prostate Special screening for malignant neoplasm of prostate documented in this encounter Care Teams Baby Formula Worker Relationship Specialty Start Date End Date Kayla Porras [place] [address] PCP - General 1/27/17 5/1/19 Kayla Porras NP [address] [place] [address] PCP - General 06/24/16 06/24/16 Kayla Porras NP [address] [place] [address] PCP - General 06/23/16 06/23/16 Frank Toure MD [address] [place] [address] Chivo Economic Forecaster CARDIOVASCULAR DISEASE 05/30/16 documented as of this encounter
--- OUTSIDE RECORDS SUMMARY | 2024-06-08 05:54 | XMS_ITS | Encounter Summary ---
Author Organization [facility] - [facility] Address [address] [place] [address] [place] [address] Care Team Providers Care Netbackup Engineer Name Role Phone Frank Toure MD Unavailable Kayla Porras NP Primary Care Provider [phone] Encounter Details Date Type Department Care Team (Latest Contact Info) Description 11/01/2016 Abstract [facility] Medical Group Social History Tobacco Use [...] on filedocumented in this encounter Care Teams Netbackup Engineer Relationship Specialty Start Date End Date Kayla Por[place] [address] PCP - General 06/25/16 09/27/18 Frank Toure MD [address] [place] [address] Chivo Roping Machine Tender CARDIOVASCULAR DISEASE 05/30/16 documented as of this encounter
--- OUTSIDE RECORDS SUMMARY | 2024-06-08 05:54 | XMS_ITS | Encounter Summary ---
Author Organization [facility] Address [address] [facility]. [place], [place] [address] [place] [address] Care Team Providers Care Mandarin Chinese Teacher Name Role Phone Dany Toure MD Unavailable Kayla Porras NP Primary Care Provider [phone] Encounter Details Date Type Department Care Team (Latest Contact Info) Description 11/16/2016 Abstract [facility] Medical Group , Jerica Cordon MD [...] Priority Date/Time Associated Diagnosis Comments CARDIOLOGY GENERIC Routine 11/16/2016 1: 15 PM CDT documented in this encounter Results * CARDIOLOGY GENERIC (11/16/2016 1:15 PM CDT) 11/16/2016 1:15 PM CDT 11/16/2016 1:15 PM CDT Narrative [facility] TO EPIC CONVERSION - 11/17/2016 12:51 PM CDT ?? MOJGAN AZUL MD: TOBY ZAPATA ?? ACCT: [id number] ?? ADMIT/SERVICE DATE: 11/13/16 DISCHARGE DATE: ?? : 1960 PT TYPE: ADM IN ?? SEX: M ORD SITE: [facility] ? EXAM ? 11/16/2016 @ 13:15 ?TECH: LB ?? DATE/TIME: ? ACCESSION NUMBER ?? [id number] ?CHART DOCUMENT ? INDICATIONS: ??ABNORMAL ELECTROCARDIOGRAM ? [...] NEGATIVE. ?2.ELECTROCARDIOGRAM NEGATIVE. ?3.NUCLEAR IMAGES PENDING. ? ELECTRONICALLY SIGNED BY: ?? TRESSA PEREZ MD 11/17/2016 12:50 P ?? TRESSA PEREZ MD ? D: ??11/16/2016 01:15 P ??#[id number] ?? T: ??11/17/2016 10:10 A/ECC ?? DOCUMENT # [id number] ?? REPORT TYPE:CD ? CC: ?JIN QUINTANA M.D. ?PRASHANT GODFREY M.D. ?JOAO CRAWFORD M.D. ?DANY TOURE M.D. ?JOSSE ARBOLEDA D.O. ? Procedure Note Jerica Olsen MD - 03/22/2018 MOJGAN AZUL ORDERING MD: TOBY ZAPATA ACCT: [id number] ADMIT/SERVICE DATE: 11/13/16 DISCHARGE DATE: : 1960 PT TYPE: ADM IN SEX: M ORD SITE: [facility] EXAM 11/16/2016 @ 13:15 TECH: LB DATE/TIME: ACCESSION NUMBER [id number] CHART DOCUMENT INDICATIONS: ABNORMAL ELECTROCARDIOGRAM RISK FACTORS: [...] 1.CLINICALLY NEGATIVE. 2.ELECTROCARDIOGRAM NEGATIVE. 3.NUCLEAR IMAGES PENDING. ELECTRONICALLY SIGNED BY: TRESSA PEREZ MD 11/17/2016 12:50 P TRESSA PEREZ MD P #[id number] A/ECC DOCUMENT # [id number] REPORT TYPE:CD CC: Malena RICHARDSON M.D. PANDURANGA KINI, M.D. ROOP LAL, M.D. ANTHONY L. TRUONG, D.O. us Generic Conversion Md [facility] Final Result [facility] TO EPIC CONVERSION documented in this encounter Visit Diagnoses Not on filedocumented in this encounter Care Teams Mandarin Chinese Teacher Relationship Specialty Start Date End Date Kayla Porras NP [address] [place] [address] [place] [address] PCP - General 06/25/16 09/27/18 Dany Toure MD [address] [place] [address] Coleman Geology Faculty Member CARDIOVASCULAR DISEASE 05/30/16 documented as of this encounter
--- OUTSIDE RECORDS SUMMARY | 2024-06-08 05:54 | XMS_ITS | Encounter Summary ---
Author Organization [facility] - [facility] Address [address] [place] [address] [place] [address] Care Team Providers Care Slubber Tender Name Role Phone Frank Toure MD Unavailable Kayla Porras NP Primary Care Provider [phone] Encounter Details Date Type Department Care Team (Latest Contact Info) Description 07/09/2016 Abstract [facility] Medical [...] on filedocumented in this encounter Care Teams Slubber Tender Relationship Specialty Start Date End Date Kayla [place] [address] PCP - General 06/25/16 09/27/18 Frank Toure MD [address] [place] [address] Chivo Staff Design Engineer CARDIOVASCULAR DISEASE 05/30/16 documented as of this encounter
--- OUTSIDE RECORDS SUMMARY | 2024-06-08 05:54 | XMS_ITS | Encounter Summary ---
Author Organization [facility] Address [address] [facility]. [place], [place] [address] [place] [address] Care Team Providers Care Service Worker Name Role Phone Misael Maradiaga DO Primary Care Provider + [phone] Frank Toure MD Unavailable Vern, Kayla WORKERS' COMPENSATION COMMISSIONER Primary Care Provider [phone] Vern, Kayla WORKERS' COMPENSATION COMMISSIONER Primary Care Provider [phone] Vern, Kayla WORKERS' COMPENSATION COMMISSIONER Primary Care Provider [phone] Vern, Kayla WORKERS' COMPENSATION COMMISSIONER Primary Care Provider [phone] Misael Maradiaga DO Primary Care Provider + [phone] Burke Restrepo MD Primary Care Provider + [phone] Encounter Details Date Type Department Care Team (Latest Contact Info) Description 10/03/2015 Abstract [facility] Medical Group Social History Tobacco [...] on filedocumented in this encounter Care Teams Service Worker Relationship Specialty Start Date End Date Misael Maradiaga DO PCP - General FAMILY PRACTICE 05/30/16 06/22/16 Kayla Porras NP [address] [place] [address] PCP - General 06/25/16 09/27/18 Kayla Porras NP [address] [place] [address] PCP - General 06/24/16 06/24/16 Kayla Porras NP [address] [place] [address] PCP - General 06/23/16 06/23/16 Kayla Porras NP [address] [place] [address] PCP - General 02/11/16 05/29/16 Misael Maradiaga DO PCP - General 02/02/16 02/10/16 Burke Restrepo MD [address] [place] [address] PCP - General 05/15/15 02/01/16 Frank Toure MD [address] [place] [address] Chivo Coupon Manifest Clerk CARDIOVASCULAR DISEASE 05/30/16 documented as of this encounter
--- OUTSIDE RECORDS SUMMARY | 2024-06-08 05:54 | XMS_ITS | Encounter Summary ---
Author Organization [facility] Address [address] [facility]. [place], [place] [address] [place] [address] Care Team Providers Care Mold Puller Name Role Phone Misael Maradiaga DO Primary Care Provider + [phone] Frank Toure MD Unavailable Vern, Kayla CONSERVATION POLICY ANALYST Primary Care Provider [phone] Vern, Kayla CONSERVATION POLICY ANALYST Primary Care Provider [phone] Vern, Kayla CONSERVATION POLICY ANALYST Primary Care Provider [phone] Vern, Kayla CONSERVATION POLICY ANALYST Primary Care Provider [phone] Misael Maradiaga DO Primary Care Provider + [phone] Burke Restrepo MD Primary Care Provider + [phone] Encounter Details Date Type Department Care Team (Late st Contact Info) Description 05/15/2015 Abstract [place] [address] , Generic Conversion, Social History Tobacco Use Types Packs/Day Years Used Date Smoking Tobacco: Never Assessed Sex and Gender Information Value Date Recorded Sex Assigned at Not on file Legal Sex Male 10:23 PM CDT Gender Identity Not on file Sexual Orientation Not on file documented as of this encounter Plan of Treatment Not on file documented as of this encounter Visit Diagnoses Diagnosis Uncomplicated alcohol dependence (CMS/HCC HHS/HCC) Other and unspecified alcohol dependence, unspecified drinking behavior documented in this encounter Care Teams Mold Puller Relationship Specialty Start Date End Date Misael Maradiaga DO PCP - General FAMILY PRACTICE 05/30/16 06/22/16 Kayla Porras NP [address] [facility], [place] [address] PCP - General 06/25/16 09/27/18 Kayla Porras NP [address] [facility], [place] [address] PCP - General 06/24/16 06/24/16 Kayla Porras NP [address] [facility] [place] [address] PCP - General 06/23/16 06/23/16 Kayla Porras NP [address] [facility], [place] [address] PCP - General 02/11/16 05/29/16 Misael Maradiaga DO PCP - General 02/02/16 02/10/16 Burke Restrepo MD [address] [facility] [place] [address] PCP - General 05/15/15 02/01/16 Frank Toure MD [address] [place] [id number] Chivo Personal Caregiver CARDIOVASCULAR DISEASE 05/30/16 documented as of this encounter
--- OUTSIDE RECORDS SUMMARY | 2024-06-08 05:54 | XMS_ITS | Encounter Summary ---
Author Organization [facility] Address [address] [facility]. [place], [place] [address] [place] [address] Care Team Providers Care Automatic Steel Tie Adjuster Name Role Phone Dany Toure MD Unavailable Kayla Porras NP Primary Care Provider [phone] Encounter Details Date Type Department Care Team (Latest Contact Info) Description 11/15/2016 Abstract [facility] Medical Group , Jerica Cordon [...] encounter Consult Notes * Misael Maradiaga, - 11/15/2016 4:56 PM CDT [place] [address] Patient: MOJGAN TABOR Med Rec#: [id number] Birthdate: 1960 Admit/Svce Date: 11/13/2016 Disch Date: Attending Md: PRASHANT GODFREY MD CHART DOCUMENT DATE OF CONSULTATION: 11/15/2016 REFERRING PHYSICIAN: Dr. Muniz HISTORY OF PRESENT ILLNESS: I saw Mr. [...] consult. Electronically Signed By: JOAO CRAWFORD M.D. 11/16/2016 11:50 A JOAO CRAWFORD M.D. P #[id number] P/ma cc: Malena RICHARDSON M.D. PANDURANGA KINI, M.D. ANTHONY L. TRUONG, D.O. * Misael Maradiaga DO - 11/15/2016 9:17 AM CDT [place] [address] Patient: MOJGAN TABOR [facility] Rec#: [id number] Birthdate: 1960 Admit/Svce Date: 11/13/2016 Disch Date: Attending Md: MATTY MUNIZ MD CHART DOCUMENT Patient seen at the request [...] 11/15/2016 11:15 A DANY TOURE M.D. A #[id number] A/aramis cc: Malena HART M.D. PANDURANGA KINI, M.D. ROOP LAL, M.D. ANTHONY L. TRUONG, D.O. * Misael Maradiaga DO - 11/14/2016 9:48 PM CDT [place] [address] Patient: MOJGAN TABOR [facility] Rec#: [id number] Birthdate: 1960 Admit/Svce Date: 11/13/2016 Disch Date: Attending Md: MATTY MUNIZ MD CHART DOCUMENT DATE OF CONSULTATION: 11/14/2016 REFERRING PHYSICIAN: Matty Muniz MD HISTORY OF PRESENT ILLNESS: I saw patient, Mojgan Tabor, who is a 56-year-old gentleman who [...] consult. Electronically Signed By: JOAO CRAWFORD M.D. 11/15/2016 12:26 P JOAO CRAWFORD M.D. P #[id number] Shiloh/aramis cc: Malena HART M.D. PANDURANGA KINI, M.D. ANTHONY L. TRUONG, D.O. documented in this encounter Plan of Treatment Not on file documented as of this encounter Visit Diagnoses Not on filedocumented in this encounter Care Teams Automatic Steel Tie Adjuster Relationship Specialty Start Date End Date Kayla [place] [address] PCP - General 06/25/16 09/27/18 Dany Toure MD [address] [place] [address] [place] Glove Examiner CARDIOVASCULAR DISEASE 05/30/16 documented as of this encounter
--- OUTSIDE RECORDS SUMMARY | 2024-06-08 05:54 | XMS_ITS | Encounter Summary ---
Author Organization [facility] Address [facility] [facility]. [place], [place] [address] [place] [address] Care Team Providers Care Punch Operator Name Role Phone Frank Toure MD Unavailable Kayla Porras NP Primary Care Provider [phone] Encounter Details Date Type Department Care Team (Latest Contact Info) Description 06/25/2016 Abstract [facility] Medical Group Social History Tobacco [...] Consult Notes * Kayla Porras NP - 06/25/2016 6:18 PM CST [place] [address] Patient: BI TABOR Med Rec#: [id number] Birthdate: 1960 Admit/Svce Date: 06/25/2016 Disch Date: 06/25/2016 Attending Md: MALU VILLA MD CHART DOCUMENT DATE OF CONSULTATION: 06/25/2016 HISTORY OF PRESENT ILLNESS: Bi Tabor is a 56-year-old gentleman with a 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 He had a seizure starting January 2016 and replacement on Keppra. There is some questionable compliance. He had 2 seizures yesterday, one at home and one in the ER and so admitted. In the ER they gave him 1 g of IV Keppra. He had no more seizure. He is alert, awake. He states he takes his medications regularly. NEUROLOGIC EXAMINATION: Did reveal some mild left field cut. He has subtle weakness in the left arm but I do not see any weakness in the lower limbs. Gait exam deferred. Exam of the head, neck, and spine unremarkable. 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 I asked him to increase the dose of Keppra to 1 g b.i.d. and if he has more seizures, to increase it to 1.5 g t.i.d. after a week. He told me that he has stopped abusing alcohol. Thank you for the consult. Electronically Signed By: JOAO CRAWFORD M.D. 06/26/2016 12:55 P JOAO CRAWFORD M.D. P #[id number] P/ma cc: DEBRA MUÑOZ M.D. KRISTEN REINEKE-PIPER, MD documented in this encounter Plan of Treatment Not on file documented as of this encounter Visit Diagnoses Not on filedocumented in this encounter Care Teams Punch Operator Relationship Specialty Start Date End Date Kayla [place] [address] PCP - General 06/25/16 09/27/18 Frank Toure MD [address] [place] [address] Chivo Charge Accounts Audit Clerk CARDIOVASCULAR DISEASE 05/30/16 documented as of this encounter
--- OUTSIDE RECORDS SUMMARY | 2024-06-08 05:55 | XMS_ITS | Encounter Summary ---
Author Organization [facility] Address [address] [facility] [facility] [place], [place] [address] [place] [address] Care Team Providers Care Configuration Analyst Name Role Phone Misael Maradiaga DO Primary Care Provider + [phone] Frank Toure MD Unavailable Vern, Kayla DUMPSTER DRIVER Primary Care Provider [phone] Vern, Kayla DUMPSTER DRIVER Primary Care Provider [phone] Vern, Kayla DUMPSTER DRIVER Primary Care Provider [phone] Vern, Kayla DUMPSTER DRIVER Primary Care Provider [phone] Misael Maradiaga DO Primary Care Provider + [phone] AmpaBurke shields MD Primary Care Provider + [phone] AmpaBurke shields MD Primary Care Provider + [phone] AmpaBurke shields MD Primary Care Provider [phone] AmpaBurke shields MD Primary Care Provider + [phone] AmpaBurke shields MD Primary Care Provider + [phone] AmpaBurke shields MD Primary Care Provider + [phone] Encounter Details Date Type Department Care Team (Late st Contact Info) Description 01/05/2015 Emergency [facility] [place] [address] Rodrigo Damian DO [address] [facility] [address] [place], [place] [address] Social History Tobacco Use Types Packs/Day Years Used Date Smoking Tobacco: Never Assessed Sex and Gender Information Value Date Recorded Sex Assigned at Not on file Legal Sex Male 10:23 PM CDT Gender Identity Not on file Sexual Orientation Not on file documented as of this encounter Plan of Treatment Not on file documented as of this encounter Visit Diagnoses Diagnosis Headache(784.0) Headache documented in this encounter Care Teams Configuration Analyst Relationship Specialty Start Date End Date Misael Maradiaga DO PCP - General FAMILY PRACTICE 05/30/16 06/22/16 Kayla Porras NP [address] [place], [place] [address] PCP - General 06/25/16 09/27/18 Kayla Porras NP [address] [place] [address] PCP - General 06/24/16 06/24/16 Kayla Porras NP [address] [place] [address] PCP - General 06/23/16 06/23/16 Kayla Porras NP [address] [facility] [place] [address] PCP - General 02/11/16 05/29/16 Misael Maradiaga DO PCP - General 02/02/16 02/10/16 Burke Restrepo MD [address] [facility] [place] [address] PCP - General 05/15/15 02/01/16 Burke Restrepo MD [address] [facility] [place] [address] PCP - General 05/09/15 05/14/15 Burke Restrepo MD [address] [facility] [place] [address] PCP - General 05/08/15 05/08/15 Burke Restrepo MD [address] [facility] [place] [address] PCP - General 03/19/15 05/07/15 Burke Restrepo MD [address] [facility] [place] [address] PCP - General 03/11/15 03/18/15 Burke Restrepo MD [address] [facility] [place] [address] PCP - General 01/05/15 03/10/15 Frank Toure MD [address] [place] [id number] Chivo Sign Erector And Repairer CARDIOVASCULAR DISEASE 05/30/16 documented as of this encounter
--- OUTSIDE RECORDS SUMMARY | 2024-06-08 05:55 | XMS_ITS | Encounter Summary ---
Author Organization [facility] Address [address] [facility]. [place], [place] [address] [place] [address] Care Team Providers Care Infection Prevention Specialist Name Role Phone Misael Maradiaga DO Primary Care Provider + [phone] Frank Tuore MD Unavailable Vern, Kayla INSIDE SALES REPRESENTATIVE Primary Care Provider [phone] Vern, Kayla INSIDE SALES REPRESENTATIVE Primary Care Provider [phone] Vern, Kayla INSIDE SALES REPRESENTATIVE Primary Care Provider [phone] Vern, Kayla INSIDE SALES REPRESENTATIVE Primary Care Provider [phone] Misael Maradiaga DO Primary Care Provider + [phone] Ampadu, Burke Esteban MD Primary Care Provider + [phone] Ampadu, Burke Esteban MD Primary Care Provider + [phone] Ampadu, Burke Esteban MD Primary Care Provider + [phone] Ampadu, Burke Esteban MD Primary Care Provider [phone] Ampadu, Burke Esteban MD Primary Care Provider [phone] Ampadu, Burke Esteban MD Primary Care Provider + [phone] Ampadu, Burke Esteban MD Primary Care Provider + [phone] Ampadu, Burke Esteban MD Primary Care Provider + [phone] Ampadu, Burke Esteban MD Primary Care Provider + [phone] Burke Restrepo MD Primary Care Provider + [phone] Burke Restrepo MD Primary Care Provider + [phone] Burke Restrepo MD Primary Care Provider + [phone] Encounter Details Date Type Department Care Team (Late st Contact Info) Description 02/06/2013 Emergency [facility] Emergency Room [facility] [place] [address] Kirit Waldrop DO [address] [place] [address] Social History Tobacco Use Types Packs/Day Years Used Date Smoking Tobacco: Never Assessed Sex and Gender Information Value Date Recorded Sex Assigned at Not on file Legal Sex Male 10:23 PM CDT Gender Identity Not on file Sexual Orientation Not on file documented as of this encounter Plan of Treatment Not on file documented as of this encounter Visit Diagnoses Diagnosis Epilepsy (CMS/HCC HHS/[facility]) Unspecified epilepsy without mention of intractable epilepsy documented in this encounter Care Teams Infection Prevention Specialist Relationship Specialty Start Date End Date Misael Maradiaga DO PCP - General FAMILY PRACTICE 05/30/16 06/22/16 Kayla Porras NP [address] [facility] [place] [address] PCP - General 06/25/16 09/27/18 Kayla Porras INSIDE SALES REPRESENTATIVE [address] [facility] [place] [address] PCP - General 06/24/16 06/24/16 Kayla Porras NP [address] [facility] [place] [address] PCP - General 06/23/16 06/23/16 Kayla Porras NP [address] [place] [address] PCP - General 02/11/16 05/29/16 Misael Maradiaga DO PCP - General 02/02/16 02/10/16 Lauro, Burke Esteban MD [address] [facility] [place] [address] PCP - General 05/15/15 02/01/16 Lauro, Burke Esteban MD [address] [facility] [place] [address] PCP - General 05/09/15 05/14/15 Lauro, Burke Esteban MD [address] [facility] [place] [address] PCP - General 05/08/15 05/08/15 Lauro, Burke Esteban MD [address] [facility] [place] [address] PCP - General 03/19/15 05/07/15 Lauro, Burke Esteban MD [address] [facility] [place] [address] PCP - General 03/11/15 03/18/15 Burke Restrepo MD [address] [facility] [place] [address] PCP - General 01/05/15 03/10/15 Burke Restrepo MD [address] [facility] [place] [address] PCP - General 12/02/14 01/04/15 Burke Restrepo MD [address] [facility] [place] [address] PCP - General 11/08/14 12/01/14 Burke Restrepo MD [address] [facility] [place] [address] PCP - General 08/01/13 11/07/14 Burke Restrepo MD [address] [facility] [place] [address] PCP - General 07/11/13 07/31/13 Burke Restrepo MD [address] [facility], [place] [address] PCP - General 07/06/13 07/10/13 Burke Restrepo MD [address] [facility] [place] [address] PCP - General 02/06/13 07/05/13 Frank Toure MD [address] [place] [address] [place] Equipment Validation Specialist CARDIOVASCULAR DISEASE 05/30/16 documented as of this encounter
--- OUTSIDE RECORDS SUMMARY | 2024-06-08 05:55 | XMS_ITS | Encounter Summary ---
Author Organization [facility] Address [id number]. [place], [place] [address] [place] [address] Care Team Providers Care Archives Specialist Name Role Phone Burke Restrepo MD Primary Care Provider + [phone] Ampadu, Burke Esteban MD Primary Care Provider + [phone] Ampacornelius, Burke Esteban MD Primary Care Provider + [phone] Ampacornelius, Burke Esteban MD Primary Care Provider + [phone] Ampadu, Burke Esteban MD Primary Care Provider + [phone] Encounter Details Date Type Department Care Team (Late st Contact Info) Description 03/11/2015 Abstract [facility] [address] [place] [address] Jerica Olsen MD Social History Tobacco Use Types Packs/Day [...] Procedure Name Priority Date/Time Associated Diagnosis Comments EXTERNAL EJECTION FRACTION Routine 03/11/2015 12:00 AM CDT documented in this encounter Results * EXTERNAL EJECTION FRACTION (03/11/2015 12:00 AM CDT) EJECTION FRACTION 55-60 HS HS LAB ORDERS INTERFACE Comment: The left ventricular size is normal. The left ventricular systolicfunction is normal. Estimated left ventricular ejection fraction is 55-60%. The right ventricular size is normal. Intraventricular septum is normal. The left atrial volume is normal ( less than 34 ml/M2). Inferior vena cava shows >50% collapse with respiration consistentwith normal right atrial pressure. No significant valvular abnormalities. Anatomical Region Laterality Modality Other 03/11/2015 03/11/2015 Narrative 03/11/2015 12:00 AM CDT Echo with Cardiac Doppler, YSABEL ARMAS us Generic Conversion Md OLSEN OTHER Final R esult documented in this encounter Visit Diagnoses Not on filedocumented in this encounter Care Teams Archives Specialist Relationship Specialty Start Date End Date Burke Restrepo MD PCP - General 05/15/15 02/01/16 Burke Restrepo MD PCP - General 05/09/15 05/14/15 Burke Restrepo MD PCP - General 05/08/15 05/08/15 Burke Restrepo MD PCP - General 03/19/15 05/07/15 Burke Restrepo MD PCP - General 03/11/15 03/18/15 documented as of this encounter
--- OUTSIDE RECORDS SUMMARY | 2024-06-08 05:55 | XMS_ITS | Encounter Summary ---
Author Organization [facility] Address [address] [facility]. [place], [place] [address] [place] [address] Care Team Providers Care Fishing Vessel Mate Name Role Phone Misael Maradiaga DO Primary Care Provider + [phone] Frank Toure MD Unavailable Vern, Kayla INTEL ANALYST Primary Care Provider +[phone] Vern, Kayla INTEL ANALYST Primary Care Provider +[phone] Vern, Kayla INTEL ANALYST Primary Care Provider +[phone] Vern, Kayla INTEL ANALYST Primary Care Provider +[phone] Misael Maradiaga DO Primary Care Provider + [phone] Ampadu, Burke Esteban MD Primary Care Provider + [phone] Ampadu, Burke Esteban MD Primary Care Provider + [phone] Ampadu, Burke Esteban MD Primary Care Provider + [phone] Ampadu, Burke Esteban MD Primary Care Provider + [phone] Ampadu, Burke Esteban MD Primary Care Provider + [phone] Ampadu, Burke Esteban MD Primary Care Provider + [phone] Ampadu, Burke Esteban MD Primary Care Provider + [phone] Ampadu, Burke Esteban MD Primary Care Provider + [phone] Ampadu, Burke Esteban MD Primary Care Provider + [phone] Ampadu, Burke Esteban MD Primary Care Provider + [phone] Ampadu, Burke Esteban MD Primary Care Provider + [phone] Ampadu, Burke Esteban MD Primary Care Provider + [phone] Ampadu, Burke Esteban MD Primary Care Provider + [phone] Ampadu, Burke Esteban MD Primary Care Provider + [phone] Encounter Details Date Type Department Care Team (Late st Contact Info) Description 08/22/2012 Emergency [facility] Emergency Room [address] [place], [place] [id number] Yenifer Vieira MD [address] [place], [place] [address] Social History Tobacco Use Types Packs/Day Years Used Date Smoking Tobacco: Never Assessed Sex and Gender Information Value Date Recorded Sex Assigned at Not on file Legal Sex Male 10:23 PM CDT Gender Identity Not on file Sexual Orientation Not on file documented as of this encounter Plan of Treatment Not on file documented as of this encounter Visit Diagnoses Diagnosis Backache Backache, unspecified documented in this encounter Care Teams Fishing Vessel Mate Relationship Specialty Start Date End Date Misael Maradiaga DO PCP - General FAMILY PRACTICE 05/30/16 06/22/16 Kayla [place] [address] PCP - General 06/25/16 09/27/18 Kayla Por[place] [address] PCP - General 06/24/16 06/24/16 Kayla Por[place] [address] PCP - General 06/23/16 06/23/16 Kayla Porras NP [address] [facility] [place] [address] PCP - General 02/11/16 05/29/16 Misael Maradiaga DO PCP - General 02/02/16 02/10/16 Ampadu, Burke Esteban MD [address] [facility] [place] [address] PCP - General 05/15/15 02/01/16 Ampacornelius, Burke Esteban MD [address] [facility] [place] [address] PCP - General 05/09/15 05/14/15 Ampadu, Burke Esteban MD [address] [facility] [place] [address] PCP - General 05/08/15 05/08/15 Ampacornelius, Burke Esteban MD [address] [facility] [place] [address] PCP - General 03/19/15 05/07/15 Ampacornelius, Burke Esteban MD [address] [facility] [place] [address] PCP - General 03/11/15 03/18/15 Ampacornelius, Burke Esteban MD [address] [facility] [place] [address] PCP - General 01/05/15 03/10/15 Lauro, Burke Esteban MD [address] [facility] [place] [address] PCP - General 12/02/14 01/04/15 Lauro, Burke Esteban MD [address] [facility] [place] [address] PCP - General 11/08/14 12/01/14 Lauro, Burke Esteban MD [address] [facility] [place] [address] PCP - General 08/01/13 11/07/14 Lauro, Burke Esteban MD [address] [facility] [place] [address] PCP - General 07/11/13 07/31/13 Lauro, Burke Esteban MD [address] [facility] [place] [address] PCP - General 07/06/13 07/10/13 Lauro, Burke Esteban MD [address] [facility] [place] [address] PCP - General 02/06/13 07/05/13 Lauro, Burke Esteban MD [address] [facility] [place] [address] PCP - General 09/20/12 02/05/13 Lauro, Burke Esteban MD [address] [facility] [place] [address] PCP - General 08/22/12 09/19/12 Frank Toure MD [address] [place] [address] [employer] Professional Driver CARDIOVASCULAR DISEASE 05/30/16 documented as of this encounter
--- OUTSIDE RECORDS SUMMARY | 2024-06-08 05:55 | XMS_ITS | Encounter Summary ---
Author Organization [facility] Address [address] [facility]. [place], [place] [address] [place] [address] Care Team Providers Care Farm Operations Manager Name Role Phone Misael Maradiaga DO Primary Care Provider + [phone] Frank Toure MD Unavailable Vern, Kayla STORES CLERK Primary Care Provider +[phone] Vern, Kayla STORES CLERK Primary Care Provider +[phone] Vern, Kayla STORES CLERK Primary Care Provider +[phone] Vern, Kayla STORES CLERK Primary Care Provider +[phone] Misael Maradiaga DO Primary Care Provider + [phone] AmpaBurke shields MD Primary Care Provider + [phone] Burke Restrepo MD Primary Care Provider + [phone] Burke Restrepo MD Primary Care Provider + [phone] Burke Restrepo MD Primary Care Provider + [phone] Burke Restrepo MD Primary Care Provider + [phone] Encounter Details Date Type Department Care Team (Late st Contact Info) Description 03/11/2015 Abstract [facility] [place] [address] Musa Villalba MD [address] [facility] [place] [address] Burke Restrepo MD [address] [place] [address] Social History Tobacco Use Types Packs/Day Years Used Date Smoking Tobacco: Never Assessed Sex and Gender Information Value Date Recorded Sex Assigned at Not on file Legal Sex Male 10:23 PM CDT Gender Identity Not on file Sexual Orientation Not on file documented as of this encounter Plan of Treatment Not on file documented as of this encounter Visit Diagnoses Diagnosis Cerebral infarction (CMS/HCC HHS/HCC) Unspecified cerebral artery occlusion with cerebral infarction documented in this encounter Care Teams Farm Operations Manager Relationship Specialty Start Date End Date Misael Maradiaga DO PCP - General FAMILY PRACTICE 05/30/16 06/22/16 Kayla Porras NP [address] [place] [address] PCP - General 06/25/16 09/27/18 Kayla Porras NP [address] [place], [place] [address] PCP - General 06/24/16 06/24/16 Kayla [place] [address] PCP - General 06/23/16 06/23/16 Kayla Porras NP [address] [place], [place] [address] PCP - General 02/11/16 05/29/16 Misael Maradiaga DO PCP - General 02/02/16 02/10/16 Burke Restrepo MD [address] [facility] [place] [address] PCP - General 05/15/15 02/01/16 Burke Restrepo MD [address] [facility] [place] [address] PCP - General 05/09/15 05/14/15 Burke Restrepo MD [address] [facility] [place] [address] PCP - General 05/08/15 05/08/15 Burke Restrepo MD [address] [facility] [place] [address] PCP - General 03/19/15 05/07/15 Burke Restrepo MD [address] [facility] [place] [address] PCP - General 03/11/15 03/18/15 Frank Toure MD [address] [place] [address] [place]igman Living Manager CARDIOVASCULAR DISEASE 05/30/16 documented as of this encounter
--- OUTSIDE RECORDS SUMMARY | 2024-06-08 05:55 | XMS_ITS | Encounter Summary ---
Author Organization [facility] Address [address] [facility]. [place], [place] [address] [place] [address] Care Team Providers Care Silk Finisher Name Role Phone Misael Maradiaga DO Primary Care Provider + [phone] Frank Toure MD Unavailable Vern, Kayla BINDING PRINTER Primary Care Provider +[phone] Vern, Kayla BINDING PRINTER Primary Care Provider +[phone] Vern, Kayla BINDING PRINTER Primary Care Provider +[phone] Vern, Kayla BINDING PRINTER Primary Care Provider +[phone] Misael Maradiaga DO Primary Care Provider + [phone] Ampadu, Burke Esteban MD Primary Care Provider + [phone] Ampadu, Burke Esteban MD Primary Care Provider + [phone] Ampadu, Burke Esteban MD Primary Care Provider + [phone] Ampadu, Burke Esteban MD Primary Care Provider + [phone] Ampadu, Burke Esteban MD Primary Care Provider + [phone] Ampadu, Burke Esteban MD Primary Care Provider + [phone] Ampadu, Burke Esteban MD Primary Care Provider + [phone] Ampadu, Burke Esteban MD Primary Care Provider + [phone] Ampadu, Burke Esteban MD Primary Care Provider + [phone] Burke Restrepo MD Primary Care Provider + [phone] Encounter Details Date Type Department Care Team (Late st Contact Info) Description 07/11/2013 Emergency [facility] Emergency Room [address] [facility] [place] [address] Myrna Dupree, HEAD OF MEASUREMENT & INSIGHTS [address] [facility] [address] [place], [place] [id number] Social History Tobacco Use Types Packs/Day Years Used Date Smoking Tobacco: Never Assessed Sex and Gender Information Value Date Recorded Sex Assigned at Not on file Legal Sex Male 10:23 PM CDT Gender Identity Not on file Sexual Orientation Not on file documented as of this encounter Plan of Treatment Not on file documented as of this encounter Visit Diagnoses Diagnosis Other malaise and fatigue documented in this encounter Care Teams Silk Finisher Relationship Specialty Start Date End Date Misael Maradiaga DO PCP - General FAMILY PRACTICE 05/30/16 06/22/16 Kayla Porras NP [address] [place] [address] PCP - General 06/25/16 09/27/18 Kayla Porras NP [address] [place] [address] PCP - General 06/24/16 06/24/16 Kayla Porras [place] [address] PCP - General 06/23/16 06/23/16 Kayla Porras NP [address] [place] [address] PCP - General 02/11/16 05/29/16 Misael Maradiaga DO PCP - General 02/02/16 02/10/16 Lauro, Burke Esteban MD [address] [place] [address] PCP - General 05/15/15 02/01/16 Ampacornelius, Burke Esteban MD [address] [place] [address] PCP - General 05/09/15 05/14/15 [facility] Burke Esteban MD [address] [facility] [address] PCP - General 05/08/15 05/08/15 Lauro, Burke Esteban MD [address] [facility] [address] PCP - General 03/19/15 05/07/15 Lauro, Burke Esteban MD [address] [place] [address] PCP - General 03/11/15 03/18/15 Lauro, Burke Esteban MD [address] [place] [address] PCP - General 01/05/15 03/10/15 aLuro, Burke Esteban MD [address] [facility] [address] PCP - General 12/02/14 01/04/15 Lauro, Burke Esteban MD [address] [place] [address] PCP - General 11/08/14 12/01/14 Burke Restrepo MD [address] [facility] [address] PCP - General 08/01/13 11/07/14 Burke Restrepo MD [address] [place] [address] PCP - General 07/11/13 07/31/13 Frank Toure MD [address] [place] [address] Ch[employer] Senior Front End Engineer CARDIOVASCULAR DISEASE 05/30/16 documented as of this encounter
--- OUTSIDE RECORDS SUMMARY | 2024-06-08 05:55 | XMS_ITS | Encounter Summary ---
Author Organization [facility] Address [address] [facility]. [place], [place] [address] [place] [address] Care Team Providers Care Milk Bottler Name Role Phone Misael Maradiaga DO Primary Care Provider + [phone] Frank Toure MD Unavailable Vern, Kayla STOCK CONTROL SUPERVISOR Primary Care Provider +[phone] Vern, Kayla STOCK CONTROL SUPERVISOR Primary Care Provider +[phone] Vern, Kayla STOCK CONTROL SUPERVISOR Primary Care Provider +[phone] Vern, Kayla STOCK CONTROL SUPERVISOR Primary Care Provider +[phone] Misael Maradiaga DO Primary Care Provider + [phone] Ampadu, Burke Esteban MD Primary Care Provider + [phone] Ampadu, Burke Esteban MD Primary Care Provider + [phone] Ampadu, Burke Esteban MD Primary Care Provider + [phone] Ampadu, Burke Esteban MD Primary Care Provider + [phone] Ampadu, Burke Esteban MD Primary Care Provider + [phone] Ampadu, Burke Esteban MD Primary Care Provider + [phone] Ampadu, Burke Esteban MD Primary Care Provider + [phone] Ampadu, Burke Esteban MD Primary Care Provider + [phone] Ampadu, Burke Esteban MD Primary Care Provider + [phone] Encounter Details Date Type Department Care Team (Latest Contact Info) Description 09/21/2014 Abstract [facility] Misael Maradiaga DO [address] [address] Social History Tobacco Use Types Packs/Day Years [...] on filedocumented in this encounter Care Teams Milk Bottler Relationship Specialty Start Date End Date Misael Maradiaga DO PCP - General FAMILY PRACTICE 05/30/16 06/22/16 Kayla Porras NP [address] [place] [address] PCP - General 06/25/16 09/27/18 Kayla Porras NP [address] [place] [address] PCP - General 06/24/16 06/24/16 Kayla Porras NP [address] [place], [place] [address] PCP - General 06/23/16 06/23/16 Kay[place] [address] PCP - General 02/11/16 05/29/16 Misael Maradiaga DO PCP - General 02/02/16 02/10/16 Ampadu, Burke Esteban MD [address] [facility] [address] PCP - General 05/15/15 02/01/16 Ampacornelius, Burke Esteban MD [address] [facility] [address] PCP - General 05/09/15 05/14/15 Ampadu, Burke Esteban MD [address] [facility] [address] PCP - General 05/08/15 05/08/15 Ampacornelius, Burke Esteban MD [address] [facility] [address] PCP - General 03/19/15 05/07/15 Ampacornelius, Burke Esteban MD [address] [facility] [address] PCP - General 03/11/15 03/18/15 Ampadu, Burke Esteban MD [address] [facility] [address] PCP - General 01/05/15 03/10/15 Ampacornelius, Burke Esteban MD [address] [facility] [address] PCP - General 12/02/14 01/04/15 Burke Restrepo MD [address] [place] [address] PCP - General 11/08/14 12/01/14 Burke Restrepo MD [address] [place] [address] PCP - General 08/01/13 11/07/14 Frank Toure MD [address] [place] [address] [place] Bag Tester CARDIOVASCULAR DISEASE 05/30/16 documented as of this encounter
--- OUTSIDE RECORDS SUMMARY | 2024-06-08 05:55 | XMS_ITS | Encounter Summary ---
Author Organization [facility] Address [address] [facility]. [place], [place] [address] [place] [address] Care Team Providers Care Carbon Sequestration Plant Operator Name Role Phone Misael Maradiaga DO Primary Care Provider + [phone] Frank Toure MD Unavailable Vern, Kayla REIMBURSEMENT ANALYST Primary Care Provider [phone] Vern, Kayla REIMBURSEMENT ANALYST Primary Care Provider +[phone] Vern, Kayla REIMBURSEMENT ANALYST Primary Care Provider +[phone] Vern, Kayla REIMBURSEMENT ANALYST Primary Care Provider +[phone] Misael Maradiaga DO Primary Care Provider + [phone] Ampadu, Burke Esteban MD Primary Care Provider + [phone] Ampadu, Burke Esteban MD Primary Care Provider + [phone] Ampadu, Burke Esteban MD Primary Care Provider + [phone] Ampadu, Burke Esteban MD Primary Care Provider + [phone] Ampadu, Burke Esteban MD Primary Care Provider + [phone] Ampadu, Burke Esteban MD Primary Care Provider + [phone] Ampadu, Burke Esteban MD Primary Care Provider + [phone] Ampadu, Burke Esteban MD Primary Care Provider + [phone] Ampadu, Burke Esteban MD Primary Care Provider + [phone] Encounter Details Date Type Department Care Team (Latest Contact Info) Description 09/25/2014 Abstract [facility] Medical [facility] Misael Maradiaga DO [address] [address] Social History Tobacco Use Types Packs/Day Years [...] on filedocumented in this encounter Care Teams Carbon Sequestration Plant Operator Relationship Specialty Start Date End Date Misael Maradiaga DO PCP - General FAMILY PRACTICE 05/30/16 06/22/16 Kayla Porras NP [address] [place] [address] PCP - General 06/25/16 09/27/18 Kayla Porras NP [address] [place] [address] PCP - General 06/24/16 06/24/16 Kayla Porras NP [address] [place], [place] [address] PCP - General 06/23/16 06/23/16 Kay[place] [address] PCP - General 02/11/16 05/29/16 Misael Maradiaga DO PCP - General 02/02/16 02/10/16 Ampadu, Burke Esteban MD [address] [place] [address] PCP - General 05/15/15 02/01/16 Ampacornelius, Burke Esteban MD [address] [place] [address] PCP - General 05/09/15 05/14/15 Ampadu, Burke Esteban MD [address] [place] [address] PCP - General 05/08/15 05/08/15 Ampacornelius, Burke Esteban MD [address] [place] [address] PCP - General 03/19/15 05/07/15 Ampacornelius, Burke Esteban MD [address] [place] [address] PCP - General 03/11/15 03/18/15 Ampadu, Burke Esteban MD [address] [place] [address] PCP - General 01/05/15 03/10/15 Ampacornelius, Burke Esteban MD [address] [place] [address] PCP - General 12/02/14 01/04/15 Burke Restrepo MD [address] [place] [address] PCP - General 11/08/14 12/01/14 Burke Restrepo MD [address] [place] [address] PCP - General 08/01/13 11/07/14 Frank Toure MD [address] [place] [address] [place] Electrical Engineering Designer CARDIOVASCULAR DISEASE 05/30/16 documented as of this encounter
--- OUTSIDE RECORDS SUMMARY | 2024-06-08 05:55 | XMS_ITS | Encounter Summary ---
Author Organization [facility] Address [address] [facility] [place], [place] [address] [place] [address] Care Team Providers Care Data Analytics Architect Name Role Phone Misael Maradiaga DO Primary Care Provider + [phone] Frank Toure MD Unavailable Vern, Kayla DATASTAGE DEVELOPER Primary Care Provider +[phone] Vern, Kayla DATASTAGE DEVELOPER Primary Care Provider +[phone] Vern, Kayla DATASTAGE DEVELOPER Primary Care Provider +[phone] Vern, Kayla DATASTAGE DEVELOPER Primary Care Provider +[phone] Misael Maradiaga DO Primary Care Provider + [phone] Ampadu, Burke Esteban MD Primary Care Provider + [phone] AmpaBurke shields MD Primary Care Provider + [phone] AmpaBurke shields MD Primary Care Provider + [phone] AmpaBurke shields MD Primary Care Provider + [phone] AmpaBurke shields MD Primary Care Provider + [phone] AmpaBurke shields MD Primary Care Provider + [phone] AmpaBurke shields MD Primary Care Provider + [phone] Ampacornelius, Burke Esteban MD Primary Care Provider + [phone] Encounter Details Date Type Department Care Team (Late st Contact Info) Description 11/08/2014 Emergency [facility] Emergency Room [address] [facility] [place] [address] Ketty Cortez MD [address] [facility] [address] [place] [address] Social History Tobacco Use Types Packs/Day Years [...] Headache documented in this encounter Care Teams Data Analytics Architect Relationship Specialty Start Date End Date Misael Maradiaga DO PCP - General FAMILY PRACTICE 05/30/16 06/22/16 Kayla Porras NP [address] [facility], [place] [address] PCP - General 06/25/16 09/27/18 Kayla Porras NP [address] [place] [address] PCP - General 06/24/16 06/24/16 Kayla Porras NP [address] [facility], [place] [address] PCP - General 06/23/16 06/23/16 Kayla Porras NP [address] [facility], [place] [address] PCP - General 02/11/16 05/29/16 Misael Maradiaga DO PCP - General 02/02/16 02/10/16 Lauro, Burke Esteban MD [address] [address] PCP - General 05/15/15 02/01/16 Lauro, Burke Esteban MD [address] [address] PCP - General 05/09/15 05/14/15 Lauro, Burke Esteban MD [address] [place] [address] PCP - General 05/08/15 05/08/15 Lauro, uBrke Esteban MD [address] [place] [address] PCP - General 03/19/15 05/07/15 Lauro, Burke Esteban MD [address] [place] [address] PCP - General 03/11/15 03/18/15 Lauro, Burke Esteban MD [address] [place] [address] PCP - General 01/05/15 03/10/15 Lauro, Burke Esteban MD [address] [address] PCP - General 12/02/14 01/04/15 Lauro, Burke Esteban MD [address] [place] [address] PCP - General 11/08/14 12/01/14 Frank Toure MD [address] [place] [address] [place] Broker Agricultural Produce CARDIOVASCULAR DISEASE 05/30/16 documented as of this encounter
--- OUTSIDE RECORDS SUMMARY | 2024-06-08 05:55 | XMS_ITS | Encounter Summary ---
Author Organization [facility] Address [address] [facility] [place], [place] [address] [place] [address] Care Team Providers Care Accounting Manager Assistant Controller Name Role Phone Misael Maradiaga DO Primary Care Provider + [phone] Frank Toure MD Unavailable Vern, Kayla RAMP BOSS Primary Care Provider +[phone] Vern, Kayla RAMP BOSS Primary Care Provider +[phone] Vern, Kayla RAMP BOSS Primary Care Provider +[phone] Vern, Kayla RAMP BOSS Primary Care Provider +[phone] Misael Maradiaga DO Primary Care Provider + [phone] Ampadu, Burke Esteban MD Primary Care Provider + [phone] AmpaBurke shields MD Primary Care Provider + [phone] AmpaBurke shields MD Primary Care Provider + [phone] AmpaBurke shields MD Primary Care Provider + [phone] AmpaBurke shields MD Primary Care Provider + [phone] AmpaBurke shields MD Primary Care Provider + [phone] AmpaBurke shields MD Primary Care Provider + [phone] Encounter Details Date Type Department Care Team (Late st Contact Info) Description 12/02/2014 Emergency [facility] [place] [address] Dionne Jung PA-C [address] [facility] [address] [place] [address] Social History Tobacco Use Types Packs/Day Years [...] Headache documented in this encounter Care Teams Accounting Manager Assistant Controller Relationship Specialty Start Date End Date Misael Maradiaga DO PCP - General FAMILY PRACTICE 05/30/16 06/22/16 Kayla Porras NP [address] [place], [place] [address] PCP - General 06/25/16 09/27/18 Kayla Porras NP [address] [place], [place] [address] PCP - General 06/24/16 06/24/16 Kayla Porras NP [address] [place] [address] PCP - General 06/23/16 06/23/16 Kayla Porras NP [address] [place], [place] [address] PCP - General 02/11/16 05/29/16 Misael Maradiaga DO PCP - General 02/02/16 02/10/16 Lauro, Burke Esteban MD [address] [place] [address] PCP - General 05/15/15 02/01/16 Lauro, Burke Esteban MD [address] [place] [address] PCP - General 05/09/15 05/14/15 Lauro, Burke Esteban MD [address] [place] [address] PCP - General 05/08/15 05/08/15 Lauro, Burke Esteban MD [address] [place] [address] PCP - General 03/19/15 05/07/15 Lauro, Burke Esteban MD [address] [place] [address] PCP - General 03/11/15 03/18/15 Lauro, Burke Esteban MD [address] [place] [address] PCP - General 01/05/15 03/10/15 Lauro, Burke Esteban MD [address] [place] [address] PCP - General 12/02/14 01/04/15 Frank Toure MD [address] [place] [address] [place] Dtp Operator CARDIOVASCULAR DISEASE 05/30/16 documented as of this encounter
--- OUTSIDE RECORDS SUMMARY | 2024-06-08 05:55 | XMS_ITS | Encounter Summary ---
Author Organization [facility] Address [address] [facility]. [place], [place] [address] [place] [address] Care Team Providers Care Assistant Hairstylist Name Role Phone Misael Maradiaga DO Primary Care Provider + [phone] Frank Toure MD Unavailable Vern, Kayla PRODUCTION DIRECTOR Primary Care Provider [phone] Vern, Kayla PRODUCTION DIRECTOR Primary Care Provider +[phone] Vern, Kayla PRODUCTION DIRECTOR Primary Care Provider +[phone] Vern, Kayla PRODUCTION DIRECTOR Primary Care Provider +[phone] Misael Maradiaga DO Primary Care Provider + [phone] Ampadu, Burke Esteban MD Primary Care Provider + [phone] AmpaBurke shields MD Primary Care Provider + [phone] AmpaBurke shields MD Primary Care Provider + [phone] Ampacornelius, Burke Esteban MD Primary Care Provider + [phone] AmpaBurke shields MD Primary Care Provider + [phone] AmpaBurke shields MD Primary Care Provider + [phone] Ampacornelius, Burke Esteban MD Primary Care Provider + [phone] Ampacornelius, Burke Esteban MD Primary Care Provider + [phone] Encounter Details Date Type Department Care Team (Latest Contact Info) Description 12/01/2014 Abstract [facility] Medical Group Misael Maradiaga DO [address] [address] Social History Tobacco Use Types Packs/Day Years [...] filedocumented in this encounter Care Teams Assistant Hairstylist Relationship Specialty Start Date End Date Misael Maradiaga DO PCP - General FAMILY PRACTICE 05/30/16 06/22/16 Kayla Porras NP [address] [place] [address] PCP - General 06/25/16 09/27/18 Kayla Porras NP [address] [place] [address] PCP - General 06/24/16 06/24/16 Kayla [place] [address] PCP - General 06/23/16 06/23/16 Kayla Porras NP [address] [place] [address] PCP - General 02/11/16 05/29/16 Misael Maradiaga DO PCP - General 02/02/16 02/10/16 Lauro, Burke Esteban MD [address] [place] [address] PCP - General 05/15/15 02/01/16 Ampacornelius, Burke Esteban MD [address] [place] [address] PCP - General 05/09/15 05/14/15 [facility] Esteb[facility] MD [address] [facility] [place] [address] PCP - General 05/08/15 05/08/15 Lauro, Burke Esteban MD [address] [address] PCP - General 03/19/15 05/07/15 Lauro, Burke Esteban MD [address] [address] PCP - General 03/11/15 03/18/15 Lauro, Burke Esteban MD [address] [place] [address] PCP - General 01/05/15 03/10/15 Lauro, Burke Esteban MD [address] [place] [address] PCP - General 12/02/14 01/04/15 Lauro, Burke Esteban MD [address] [place] [address] PCP - General 11/08/14 12/01/14 Frank Toure MD [address] [place] [address] [employer] Marine Steamfitter CARDIOVASCULAR DISEASE 05/30/16 documented as of this encounter
--- OUTSIDE RECORDS SUMMARY | 2024-06-08 05:55 | XMS_ITS | Encounter Summary ---
Author Organization [facility] Address [address] [facility]. [place], [place] [address] [place] [address] Care Team Providers Care Flag Football Coach Name Role Phone Misael Maradiaga DO Primary Care Provider + [phone] Frank Toure MD Unavailable Vern, Kayla HOOP COILER Primary Care Provider [phone] Vern, Kayla HOOP COILER Primary Care Provider +[phone] Vern, Kayla HOOP COILER Primary Care Provider +[phone] Vern, Kayla HOOP COILER Primary Care Provider +[phone] Misael Maradiaga DO Primary Care Provider + [phone] Ampadu, Burke Esteban MD Primary Care Provider + [phone] Ampadu, Burke Esteban MD Primary Care Provider + [phone] Ampadu, Burke Esteban MD Primary Care Provider + [phone] Ampadu, Burke Esteban MD Primary Care Provider + [phone] Ampadu, Burke Esteban MD Primary Care Provider + [phone] Ampadu, Burke Esteban MD Primary Care Provider + [phone] Ampadu, Burke Esteban MD Primary Care Provider + [phone] Ampadu, Burke Esteban MD Primary Care Provider + [phone] Ampadu, Burke Esteban MD Primary Care Provider + [phone] Ampacornelius, Burke Esteban MD Primary Care Provider + [phone] Ampacornelius, Burke Esteban MD Primary Care Provider + [phone] Ampacornelius, Burke Esteban MD Primary Care Provider + [phone] Ampacornelius, Burke Esteban MD Primary Care Provider + [phone] Encounter Details Date Type Department Care Team (Late st Contact Info) Description 09/20/2012 Emergency [facility] [place] [address] Jake Laird MD Social History Tobacco Use Types Packs/Day Years Used Date Smoking Tobacco: Never Assessed Sex and Gender Information Value Date Recorded Sex Assigned at Not on file Legal Sex Male 10:23 PM CDT Gender Identity Not on file Sexual Orientation Not on file documented as of this encounter Plan of Treatment Not on file documented as of this encounter Visit Diagnoses Diagnosis Dizziness and giddiness documented in this encounter Care Teams Flag Football Coach Relationship Specialty Start Date End Date Misael Maradiaga DO PCP - General FAMILY PRACTICE 05/30/16 06/22/16 Kayla Porras NP [address] [place], [place] [id number] PCP - General 06/25/16 09/27/18 Kayla [place] [address] PCP - General 06/24/16 06/24/16 Kayla [place] [address] PCP - General 06/23/16 06/23/16 Kay[place] [address] PCP - General 02/11/16 05/29/16 Misael Maradiaga DO PCP - General 02/02/16 02/10/16 Lauro, Burke Esteban MD [address] [facility] [place] [address] PCP - General 05/15/15 02/01/16 Lauro, Burke Esteban MD [address] [place] [address] PCP - General 05/09/15 05/14/15 Lauro, Burke Esteban MD [address] [place] [address] PCP - General 05/08/15 05/08/15 Lauro, Burke Esteban MD [address] [place] [address] PCP - General 03/19/15 05/07/15 Lauro, Burke Esteban MD [address] [place] [address] PCP - General 03/11/15 03/18/15 Lauro, Burke Esteban MD [address] [place] [address] PCP - General 01/05/15 03/10/15 Lauro, Burke Esteban MD [address] [place] [address] PCP - General 12/02/14 01/04/15 Burke Restrepo MD [address] [place] [address] PCP - General 11/08/14 12/01/14 Burke Restrepo MD [address] [place] [address] PCP - General 08/01/13 11/07/14 Burke Restrepo MD [address] [place] [address] PCP - General 07/11/13 07/31/13 Burke Restrepo MD [address] [place] [address] PCP - General 07/06/13 07/10/13 Burke Restrepo MD [address] [place] [address] PCP - General 02/06/13 07/05/13 Burke Restrepo MD [address] [place] [address] PCP - General 09/20/12 02/05/13 Frank Toure MD [address] [place] [id number] [employer] Guide Escort CARDIOVASCULAR DISEASE 05/30/16 documented as of this encounter
--- OUTSIDE RECORDS SUMMARY | 2024-06-08 05:55 | XMS_ITS | Encounter Summary ---
Author Organization [facility] Address [address] [facility]. [place], [place] [address] [place] [address] Care Team Providers Care Chipper Feeder Name Role Phone Misael Maradiaga DO Primary Care Provider + [phone] Frank Toure MD Unavailable Vern, Kayla MANGLE PRESS CATCHER Primary Care Provider [phone] Evrn, Kayla MANGLE PRESS CATCHER Primary Care Provider [phone] Vern, Kayla MANGLE PRESS CATCHER Primary Care Provider [phone] Vern, Kayla MANGLE PRESS CATCHER Primary Care Provider [phone] Misael Maradiaga DO Primary Care Provider + [phone] Ampadu, Burke Esteban MD Primary Care Provider + [phone] Ampadu, Burke Esteban MD Primary Care Provider + [phone] Ampadu, Burke Esteban MD Primary Care Provider + [phone] Ampadu, Burke Esteban MD Primary Care Provider + [phone] Ampadu, Burke Esteban MD Primary Care Provider + [phone] Ampadu, Burke Esteban MD Primary Care Provider + [phone] Ampadu, Burke Esteban MD Primary Care Provider + [phone] Ampadu, Burke Esteban MD Primary Care Provider + [phone] Ampadu, Burke Esteban MD Primary Care Provider + [phone] Encounter Details Date Type Department Care Team (Latest Contact Info) Description 07/13/2014 Abstract [facility] Medical Group Misael Maradiaga DO [address] [address] Social History Tobacco Use Types Packs/Day Years [...] on filedocumented in this encounter Care Teams Chipper Feeder Relationship Specialty Start Date End Date Misael Maradiaga DO PCP - General FAMILY PRACTICE 05/30/16 06/22/16 Kayla Porras NP [address] [place] [address] PCP - General 06/25/16 09/27/18 Kayla Porras NP [address] [place] [address] PCP - General 06/24/16 06/24/16 Kayla Porras NP [address] [place], [place] [address] PCP - General 06/23/16 06/23/16 Kay[place] [address] PCP - General 02/11/16 05/29/16 Misael Maradiaga DO PCP - General 02/02/16 02/10/16 Ampadu, Burke Esteban MD [address] [place] [address] PCP - General 05/15/15 02/01/16 Ampacornelius, Burke Esteban MD [address] [address] PCP - General 05/09/15 05/14/15 Ampadu, Burke Esteban MD [address] [address] PCP - General 05/08/15 05/08/15 Ampacornelius, Burke Esteban MD [address] [address] PCP - General 03/19/15 05/07/15 Ampacornelius, Burke Esteban MD [address] [address] PCP - General 03/11/15 03/18/15 Ampadu, Burke Esteban MD [address] [address] PCP - General 01/05/15 03/10/15 Ampacornelius, Burke Esteban MD [address] [address] PCP - General 12/02/14 01/04/15 Burke Restrepo MD [address] [place] [address] PCP - General 11/08/14 12/01/14 Burke Restrepo MD [address] [place] [address] PCP - General 08/01/13 11/07/14 Frank Toure MD [address] [place] [address] [place] Stave Mill Hand CARDIOVASCULAR DISEASE 05/30/16 documented as of this encounter
--- OUTSIDE RECORDS SUMMARY | 2024-06-08 05:55 | XMS_ITS | Encounter Summary ---
Author Organization [facility] Address [address] [facility]. [place], [place] [address] [place] [address] Care Team Providers Care Catalog Library Assistant Name Role Phone Misael Maradiaga DO Primary Care Provider + [phone] Frank Toure MD Unavailable Vern, Kayla POWER EQUIPMENT TECHNOLOGY INSTRUCTOR Primary Care Provider [phone] Vern, Kayla POWER EQUIPMENT TECHNOLOGY INSTRUCTOR Primary Care Provider [phone] Vern, Kayla POWER EQUIPMENT TECHNOLOGY INSTRUCTOR Primary Care Provider [phone] Vern, Kayla POWER EQUIPMENT TECHNOLOGY INSTRUCTOR Primary Care Provider [phone] Misael Maradiaga DO Primary Care Provider + [phone] Ampadu, Burke Esteban MD Primary Care Provider + [phone] Ampadu, Burke Esteban MD Primary Care Provider + [phone] Ampadu, Burke Esteban MD Primary Care Provider + [phone] Ampadu, Burke Esteban MD Primary Care Provider + [phone] Ampadu, Burke Esteban MD Primary Care Provider + [phone] Ampadu, Burke Esteban MD Primary Care Provider + [phone] Ampadu, Burke Esteban MD Primary Care Provider + [phone] Ampadu, Burke Esteban MD Primary Care Provider + [phone] Ampadu, Burke Esteban MD Primary Care Provider + [phone] Encounter Details Date Type Department Care Team (Late st Contact Info) Description 08/01/2013 Emergency [facility] [place] [address] Jake Laird MD Social History Tobacco Use [...] as of this encounter Visit Diagnoses Diagnosis Alcohol abuse Alcohol abuse, unspecified documented in this encounter Care Teams Catalog Library Assistant Relationship Specialty Start Date End Date Misael Maradiaga DO PCP - General FAMILY PRACTICE 05/30/16 06/22/16 Kayla Porras NP [address] [place] [address] PCP - General 06/25/16 09/27/18 Kayla Porras NP [address] [place] [address] PCP - General 06/24/16 06/24/16 Kayla Porras [place] [address] PCP - General 06/23/16 06/23/16 Kayla Porras NP [address] [place], [place] [address] [phone] PCP - General 02/11/16 05/29/16 Misael Maradiaga DO PCP - General 02/02/16 02/10/16 Ampadu, Burke Esteban MD [address] [place] [address] PCP - General 05/15/15 02/01/16 Ampadu, Burke Esteban MD [address] [place] [address] PCP - General 05/09/15 05/14/15 Ampadu, Burke Esteban MD [address] [place] [address] PCP - General 05/08/15 05/08/15 Ampadu, Burke Esteban MD [address] [place] [address] PCP - General 03/19/15 05/07/15 Ampacornelius, Burke Esteban MD [address] [place] [address] PCP - General 03/11/15 03/18/15 Ampacornelius, Burke Esteban MD [address] [place] [address] PCP - General 01/05/15 03/10/15 Ampacornelius, Burke Esteban MD [address] [place] [address] PCP - General 12/02/14 01/04/15 Ampacornelius, Burke Esteban MD [address] [place] [address] PCP - General 11/08/14 12/01/14 Lauro, Burke Esteban MD [address] [place] [address] PCP - General 08/01/13 11/07/14 Frank Toure MD [address] [place] [address] [employer] Middleware Engineer CARDIOVASCULAR DISEASE 05/30/16 documented as of this encounter
--- OUTSIDE RECORDS SUMMARY | 2024-06-08 05:55 | XMS_ITS | Encounter Summary ---
Author Organization [facility] Address [address] [facility]. [place], [place] [address] [place] [address] Care Team Providers Care Crosscutter Rolled Glass Name Role Phone Burke Restrepo MD Primary Care Provider + [phone] Lauro, Burke Esteban MD Primary Care Provider + [phone] Burke Restrepo MD Primary Care Provider + [phone] Lauro, Burke Esteban MD Primary Care Provider + [phone] Lauro, Burke Esteban MD Primary Care Provider + [phone] Encounter Details Date Type Department Care Team (Late st Contact Info) Description 03/11/2015 [facility] [address] [place] [address] Jerica Tsai MD Social History Tobacco Use [...] on filedocumented in this encounter Care Teams Crosscutter Rolled Glass Relationship Specialty Start Date End Date Burke Restrepo MD PCP - General 05/15/15 02/01/16 Burke Restrepo MD PCP - General 05/09/15 05/14/15 Burke Restrepo MD PCP - General 05/08/15 05/08/15 Burke Restrepo MD PCP - General 03/19/15 05/07/15 Burke Restrepo MD PCP - General 03/11/15 03/18/15 documented as of this encounter
--- OUTSIDE RECORDS SUMMARY | 2024-06-08 05:55 | XMS_ITS | Encounter Summary ---
Author Organization [facility] Address [address] [facility]. [place], [place] [address] [place] [address] Care Team Providers Care Electric Drill Operator Name Role Phone Misael Maradiaga DO Primary Care Provider + [phone] Frank Toure MD Unavailable Vern, Kayla HEARING IMPAIRED TEACHER Primary Care Provider [phone] Vern, Kayla HEARING IMPAIRED TEACHER Primary Care Provider [phone] Vern, Kayla HEARING IMPAIRED TEACHER Primary Care Provider +[phone] Vern, Kayla HEARING IMPAIRED TEACHER Primary Care Provider [phone] Misael Maradiaga DO Primary Care Provider + [phone] Ampadu, Burke Esteban MD Primary Care Provider + [phone] Ampadu, Burke Esteban MD Primary Care Provider + [phone] Ampadu, Burke Esteban MD Primary Care Provider + [phone] Ampadu, Burke Esteban MD Primary Care Provider + [phone] Ampadu, Burke Esteban MD Primary Care Provider + [phone] Ampadu, Burke Esteban MD Primary Care Provider + [phone] Ampadu, Burke Esteban MD Primary Care Provider + [phone] Ampadu, Burke Esteban MD Primary Care Provider + [phone] Ampadu, Burke Esteban MD Primary Care Provider + [phone] Burke Restrepo MD Primary Care Provider + [phone] Burke Restrepo MD Primary Care Provider + [phone] Encounter Details Date Type Department Care Team (Late st Contact Info) Description 07/06/2013 Abstract [facility] [place] [address] Burke Restrepo MD [address] [place] [address] Musa Villalba MD [address] [place] [address] Social History Tobacco Use Types Packs/Day Years Used Date Smoking Tobacco: Never Assessed Sex and Gender Information Value Date Recorded Sex Assigned at Not on file Legal Sex Male 10:23 PM CDT Gender Identity Not on file Sexual Orientation Not on file documented as of this encounter Plan of Treatment Not on file documented as of this encounter Visit Diagnoses Diagnosis Epilepsy (CMS/HCC [facility]) Unspecified epilepsy without mention of intractable epilepsy documented in this encounter Care Teams Electric Drill Operator Relationship Specialty Start Date End Date Misael Maradiaga DO PCP - General FAMILY PRACTICE 05/30/16 06/22/16 Kayla Porras NP [address] [place] [address] PCP - General 06/25/16 09/27/18 Kayla [place] [address] PCP - General 06/24/16 06/24/16 Kayla Porras [place] [address] PCP - General 06/23/16 06/23/16 Kayla Porras NP [address] [place] [place] [address] PCP - General 02/11/16 05/29/16 Misael Maradiaga DO PCP - General 02/02/16 02/10/16 Ampacornelius, Burke Esteban MD [address] [place] [place] [address] PCP - General 05/15/15 02/01/16 Lauro, Burke Esteban MD [address] [place] [address] PCP - General 05/09/15 05/14/15 Lauro, Burke Esteban MD [address] [place] [address] PCP - General 05/08/15 05/08/15 Lauro, Burke Esteban MD [address] [place] [address] PCP - General 03/19/15 05/07/15 Lauro, Burke Esteban MD [address] [place] [address] PCP - General 03/11/15 03/18/15 Lauro, Burke Esteban MD [address] [place] [address] PCP - General 01/05/15 03/10/15 Lauro, Burke Esteban MD [address] [place] [address] PCP - General 12/02/14 01/04/15 Burke Restrepo MD [address] [place] [address] PCP - General 11/08/14 12/01/14 Burke Restrepo MD [address] [place] [address] PCP - General 08/01/13 11/07/14 Burke Restrepo MD [address] [place] [address] PCP - General 07/11/13 07/31/13 Burke Restrepo MD [address] [place] [address] PCP - General 07/06/13 07/10/13 Frank Toure MD [address] [place] [address] [address] CARDIOVASCULAR DISEASE 05/30/16 documented as of this encounter
== END 2024-06-01 04:52 ==
PROVIDERS: Emergency Provider Emergency Medicine; PCP Internal Medicine
DX: J95.00 Unspecified tracheostomy complication (principal); J44.9 Chronic obstructive pulmonary disease, unspecified; D64.9 Anemia, unspecified; Z86.718 Personal history of other venous thrombosis and embolism; I69.919 Unspecified symptoms and signs involving cognitive functions following unspecified cerebrovascular disease; F01.50 Vascular dementia, unspecified severity, without behavioral disturbance, psychotic disturbance, mood disturbance, and anxiety
CPT/HCPCS: 71045; 96372; 99283; J1171

== ENCOUNTER 2024-07-13 22:49 | Emergency (ER) | payer OTHER, SELFPAY ==
--- NOTE | ~2024-07-13 | XR_ITS ---
CHEST RADIOGRAPH CLINICAL HISTORY: CHEST PAIN . COMPARISON: 06/05/2024 TECHNIQUE: Single portable view of the chest. FINDINGS Tracheostomy tube identified. The remainder of the cardiomediastinal silhouette is otherwise unremarkable. The lungs are clear. Visualized osseous structures and soft tissues are unremarkable. Percutaneous gastrostomy balloon identified within the upper abdomen. IMPRESSION: No focal infiltrate or effusion. Reviewed, dictated and finalized at location A. DUMPER
--- NOTE | 2024-07-13 22:54 | ECG_ITS ---
Test Date: 2024-07-13 22:56:40 Measurements Intervals [place] Rate: 115 P: 74 ME: 151 QRS: -28 QRSD: 85 T: 82 QT: 320 QTc: 443 Interpretive Statements SINUS TACHYCARDIA INFERIOR INFARCT, AGE INDETERMINATE ANTEROSEPTAL INFARCT, AGE INDETERMINATE BORDERLINE ST-T WAVE ABNORMALITY- HIGH LATERAL LEADS BASELINE ARTIFACT- I, II, AVR, AVL, V1-V2 ABNORMAL ECG Compared to ECG 03/29/2024 15:45:54 HEART RATE HAS INCREASED Electronically Signed On 07-14-2024 07:54:14 DIE BAKER by Dave Hernandez D.O.
--- OUTSIDE RECORDS SUMMARY | 2024-07-13 22:58 | XMS_ITS | Encounter Summary ---
Author Organization [facility] Address [address] [place] [address] Care Team Providers Care Conveyor Installer Name Role Phone Frank Toure MD Unavailable Misael Maradiaga DO Primary Care Provider [phone] Joyce Luevano NP Primary Care Provider Unavaila Marielena Adame MD Primary Care Provider [phone] Encounter Details Date Type Department Care Team (Late st Contact Info) Description 12/14/2018 Hospital Follow-up Call [facility] [place] [address] Cony Adan RN Social History Tobacco Use [...] Author Status Yes 12/04/2018 2:03 PM Anahi Chavarira RN Active documented as of this encounter [...] filedocumented in this encounter Care Teams Conveyor Installer Relationship Specialty Start Date End Date Misael Maradiaga DO [address] [place] [address] PCP - General FAMILY PRACTICE 09/28/18 01/13/20 Joyce Luevano NP [address] [place] [address] PCP - General NURSE PRACTITIONER 01/14/20 10/26/23 Marielena Smallwood MD [address] [place] [address] PCP - General FAMILY PRACTICE 10/27/23 Frank Toure MD [address] [place] [address] [employer] Lead Project Manager CARDIOVASCULAR DISEASE 05/30/16 documented as of this encounter
--- OUTSIDE RECORDS SUMMARY | 2024-07-13 22:58 | XMS_ITS | Encounter Summary ---
Author Organization [facility] Address [address] [place] [address] Care Team Providers Care Metal Grinder Name Role Phone Frank Toure MD Unavailable Kayla Porras DEBEAKER Primary Care Provider [phone] Misael Maradiaga DO Primary Care Provider + [phone] Joyce Luevano DEBEAKER Primary Care Provider Unavaila Marielena Adame MD Primary Care Provider [phone] Encounter Details Date Type Department Care Team (Latest Contact Info) Description 02/01/2018 Abstract [facility] Medical Group , Jerica Cordon [...] on filedocumented in this encounter Care Teams Metal Grinder Relationship Specialty Start Date End Date Kayla Porras NP [address] [place] [address] PCP - General 06/25/16 09/27/18 Misael Maradiaga DO [address] [place] [address] PCP - General FAMILY PRACTICE 09/28/18 01/13/20 Joyce Lue[place] [address] PCP - General NURSE PRACTITIONER 01/14/20 10/26/23 Marielena Smallwood MD [address] [place] [address] PCP - General FAMILY PRACTICE 10/27/23 Frank Toure MD [facility] [place] [address] Chivo Machine Heel Builder CARDIOVASCULAR DISEASE 05/30/16 documented as of this encounter
--- OUTSIDE RECORDS SUMMARY | 2024-07-13 22:58 | XMS_ITS | Data Portability ---
Demographics Address [address] [place] [address] Home Phone Mobile Phone Email Address Preferred Language en Marital Status Never Voodoo Affiliation Unknown Race Black or Irma rican Ethnic Group Not or Lati no Author Organization [facility] Address [address] [place] [address] Assessment No assessment recorded. Plan of Treatment Reminders Order Date Submit Date Provider Last Modified By Organization Details Last Modified Time Details Appointments None recorded. Lab None recorded. Referral None recorded. Procedures None recorded. Surgeries None recorded. Imaging None recorded. Medication Orders ibuprofen 800 mg tablet 2015 016 [facility] play140, [address] [place] [address], [id number], 6 18:35:08 Prozac 20 mg capsule 2014 015 [facility] play140, [address] [place] [address], [id number], 5 16:10:15 tramadol 50 mg tablet 2014 015 [facility] [address] [place] [address], [id number], 5 12:13:56 Flomax 0.4 mg capsule 2014 015 [facility] play140, [address] [place] [address], [id number], 5 16:10:16 Ambien 10 mg tablet 2014 015 [facility], [facility], [address] [place] [address], [id number], 5 10:37:28 Patient TargetsNo targets recorded. Patient Instructions Encounter Date Encounter Id Patient Instructions Last Modified By Organization Details Last Modified Time 06/10/2014 [id number] stroke: care instructions Not available 06/21/2014 17:33:19 insomnia: care instructions Not available 06/21/2014 17:33:19 epilepsy: care instructions Not available 06/21/2014 17:33:19 09/18/2014 [id number] epilepsy: care instructions [email or web address] Not available 09/18/2014 17:05:10 back care and preventing injuries: care instructions [email or web address] Not available 09/18/2014 17:05:10 04/16/2015 [id number] epilepsy: care instructions campadu Not available 04/16/2015 16:05:30 06/12/2015 [id number] stroke: care instructions [email or web address] Not available 06/13/2015 12:21:31 epilepsy: care instructions dsalmond Not available 06/13/2015 12:21:31 learning about high blood pressure [email or web address] Not available 06/13/2015 12:21:31 Reason for Referral None Reported. Results Created Date Observation Date Name Description Value Unit Range Abnormal Flag Note LastModifiedBy Organization Detail LastModifiedTime 06/12/19 16 06/12/2015 CBC w/ auto diff WBC 5.9 K/uL 3.4-10 .8 Not Available [facility] [address] [place], [address], 06/12/2015 19:52:35 06/12/19 16 06/12/2015 CBC w/ auto diff red blood count 4.6 M/uL 4.5-6. 3 Not Available [facility] ([facility]) [address], [place], [address], 06/12/2015 19:52:35 06/12/19 16 06/12/2015 CBC w/ auto diff hemoglobin 14.7 g/dL 13.5-1 7.5 Not Available [facility] (Lab) [address] [place], [address], 06/12/2015 19:52:35 06/12/19 16 06/12/2015 CBC w/ auto diff hematocrit 44.5 % 40.0-5 2.0 Not Available [facility] (Lab) [address] [place], [address], 06/12/2015 19:52:35 06/12/19 16 06/12/2015 CBC w/ auto diff MCV 97 fL 80-95 high Not Available [facility] (Lab) [address] [place], [address], 06/12/2015 19:52:35 06/12/19 16 06/12/2015 CBC w/ auto diff MCH 32 pg 27-32 Not Available [facility] (Lab) [address] [place], [address], 06/12/2015 19:52:35 06/12/19 16 06/12/2015 CBC w/ auto diff MCHC 33 g/dL 32-36 Not Available [facility] (Lab) [address] [place], [address], 06/12/2015 19:52:35 06/12/19 16 06/12/2015 CBC w/ auto diff platelets 219 K/uL 155-37 9 Not Available [facility] (Lab) [address] [place], [address], 06/12/2015 19:52:35 06/12/19 16 06/12/2015 CBC w/ auto diff RDW 11.6 % 11.5-1 4.5 Not Available [facility] ([facility]) [address] [place], [address], 06/12/2015 19:52:35 06/12/19 16 06/12/2015 CBC w/ auto diff MPV 11.1 fL 8.9-12 .7 Not Available [facility] ([facility]) [address] [place], [address], 06/12/2015 19:52:35 06/12/19 16 06/12/2015 CBC w/ auto diff neutrophils absolute 2.5 K/uL 1.4-7. 0 Not Available [facility] ([facility]) [address] [facility], [place], [address], 06/12/2015 19:52:35 06/12/19 16 06/12/2015 CBC w/ auto diff lymphs (absolute) 2.6 K/uL 0.7-3. 1 Not Available [facility] ([facility]) [address] [facility], [place], [address], 06/12/2015 19:52:35 06/12/19 16 06/12/2015 CBC w/ auto diff monocytes (absolute) 0.5 K/uL 0.1-0. 9 Not Available [facility] ([facility]) [address] [place], [address], 06/12/2015 19:52:35 06/12/19 16 06/12/2015 CBC w/ auto diff eos (absolute) 0.2 K/uL 0.0-0. 4 Not Available [facility] (Lab) [address] [place], [address], 06/12/2015 19:52:35 06/12/19 16 06/12/2015 CBC w/ auto diff baso (absolute) 0.0 K/uL 0.1-0. 3 low Not Available [facility] (Lab) [address] [facility], [place], [address], 06/12/2015 19:52:35 06/12/19 16 06/12/2015 CBC w/ auto diff neut % 43.1 % 40.0-7 4.0 Not Available [facility] ([facility]) [address] [place], [address], 06/12/2015 19:52:35 06/12/19 16 06/12/2015 CBC w/ auto diff lymphs % 44.6 % 14.0-4 6.0 Not Available [facility] ([facility]) [address] [place], [address], 06/12/2015 19:52:35 06/12/19 16 06/12/2015 CBC w/ auto diff mono % 8.7 % 4.0-12 .0 Not Available [facility] ([facility]) [address], [place], [address], 06/12/2015 19:52:35 06/12/19 16 06/12/2015 CBC w/ auto diff eos % 3 % <=5 Not Available [facility] ([facility]) [address], [place], [address], 06/12/2015 19:52:35 06/12/19 16 06/12/2015 CBC w/ auto diff baso % 0.2 % 0.1-1. 1 Not Available [facility] ([facility]) [address] [facility], [place], [address], 06/12/2015 19:52:35 06/12/19 16 06/13/2015 HbA1c (hemo globi n A1c), blood hemoglobin A1C 5.4 % 4.8-5. 6 . Pre-d iabet es: 5.7 - 6.4 Diabe ivet: >6.4 Glyce [place] contr ol for adult s with diabe ivet: <7.0 Not Available [facility] (Lab) [address], [place], [address], 06/13/2015 04:12:44 06/12/19 16 06/13/2015 T4, total , serum thyroxine T4 4.7 ug/dL 4.5-12 .0 Not Available [facility] (Lab) [address] [place], [address], 06/13/2015 05:19:09 06/12/19 16 06/13/2015 CMP, serum or plasm a glucose, serum 98 mg/dL 65-99 Not Available [facility] [address], [place], [address], 06/13/2015 05:19:11 06/12/19 16 06/13/2015 CMP, serum or plasm a BUN 7 mg/dL 6-24 Not Available [facility] ([facility]) [address], [place], [address], 06/13/2015 05:19:11 06/12/19 16 06/13/2015 CMP, serum or plasm a creatinine, serum 0.78 mg/dL 0.76-1 .27 Not Available [facility] (Lab) [address], [place], [address], 06/13/2015 05:19:11 06/12/19 16 06/13/2015 CMP, serum or plasm a eGFR if nonafricn AM 102 mL/mi n/1.7 3 >59 Not Available [facility] (Lab) [address], [place], [address], 06/13/2015 05:19:11 06/12/19 16 06/13/2015 CMP, serum or plasm a eGFR if 118 mL/mi n/1.7 3 >59 Not Available [facility] (Lab) [address], [place], [address], 06/13/2015 05:19:11 06/12/19 16 06/13/2015 CMP, serum or plasm a BUN/creatini ne ratio 9 9-20 Not Available [facility] (Lab) [address], [place], [address], 06/13/2015 05:19:11 06/12/19 16 06/13/2015 CMP, serum or plasm a sodium, serum 141 mmol/ L 134-14 4 Not Available [facility] (Lab) [address] [place], [address], 06/13/2015 05:19:11 06/12/19 16 06/13/2015 CMP, serum or plasm a potassium, serum 4.5 mmol/ L 3.5-5. 2 Not Available [facility] (Lab) [address], [place], [address], 06/13/2015 05:19:11 06/12/19 16 06/13/2015 CMP, serum or plasm a chloride, serum 101 mmol/ L 97-108 Not Available [facility] (Lab) [address] [place], [address], 06/13/2015 05:19:11 06/12/19 16 06/13/2015 CMP, serum or plasm a carbon dioxide, total 23 mmol/ L 18-29 Not Available [facility] (Lab) [address], [place], [address], 06/13/2015 05:19:11 06/12/19 16 06/13/2015 CMP, serum or plasm a calcium, serum 9.5 mg/dL 8.7-10 .2 Not Available [facility] (Lab) [address], [place], [address], 06/13/2015 05:19:11 06/12/1906/13/2015 CMP, serum or plasm a protein total serum 7.2 g/dL 6.0-8. 5 Not Available [facility] (Lab) [address], [place], [address], 06/13/2015 05:19:11 06/12/1906/13/2015 CMP, serum or plasm a albumin, serum 4.5 g/dL 3.5-5. 5 Not Available [facility] (Lab) [address], [place], [address], 06/13/2015 05:19:11 06/12/19 16 06/13/2015 CMP, serum or plasm a globulin total 2.7 g/dL 1.5-4. 5 Not Available [facility] (Lab) [address], [place], [address], 06/13/2015 05:19:11 06/12/1906/13/2015 CMP, serum or plasm a A/G ratio 1.7 1.1-2. 5 Not Available [facility] (Lab) [address], [place], [address], 06/13/2015 05:19:11 06/12/1906/13/2015 CMP, serum or plasm a bilirubin total <0.2 mg/dL 0.0-1. 2 Not Available [facility] (Lab) [address] [place], [address], 06/13/2015 05:19:11 06/12/19 16 06/13/2015 CMP, serum or plasm a alkaline phosphatase ser 105 IU/L 39-117 Not Available [facility] ([facility]) [address], [place], [address], 06/13/2015 05:19:11 06/12/19 16 06/13/2015 CMP, serum or plasm a AST (SGOT) 20 IU/L 0-40 Not Available [facility] ([facility]) [address] [place], [address], 06/13/2015 05:19:11 06/12/19 16 06/13/2015 CMP, serum or plasm a ALT (SGPT) 18 IU/L 0-44 Not Available [facility] ([facility]) [address] [place], [address], 06/13/2015 05:19:11 06/12/19 16 06/13/2015 TSH, serum or plasm a TSH 2.010 uIU/m L 0.450- 4.500 Not Available [facility] (Lab) [address] [place], [address], 06/13/2015 05:19:12 06/12/19 16 06/13/2015 PSA, serum [...] Available [facility] ([facility]) [address] [place], [address], 06/13/2015 05:19:13 06/12/19 16 06/13/2015 lipid panel w/ direc t LDL, serum cholesterol, total 215 mg/dL 100-19 9 high Not Available [facility] ([facility]) [address] [place], [address], 06/13/2015 05:19:14 06/12/19 16 06/13/2015 lipid panel w/ direc t LDL, serum triglyceride s 73 mg/dL 0-149 Not Available [facility] ([facility]) [address] [place], [address], 06/13/2015 05:19:14 06/12/19 16 06/13/2015 lipid panel w/ direc t LDL, serum HDL cholesterol 85 mg/dL >39 Accor ding to ATP-I II Guide lines , HDL-C >59 mg/dL is consi dered a negat phan risk facto r for CHD. Not Available [facility] (Lab) [address] [place], [address], 06/13/2015 05:19:14 06/12/19 16 06/13/2015 lipid panel w/ direc t LDL, serum VLDL cholesterol margarita 15 mg/dL 5-40 Not Available [facility] ([facility]) [address] [place], [address], 06/13/2015 05:19:14 06/12/19 16 06/13/2015 lipid panel w/ direc t LDL, serum LDL cholesterol calc 115 mg/dL 0-99 high Not Available [facility] ([facility]) [address] [place], [address], 06/13/2015 05:19:14 06/12/19 16 06/13/2015 lipid panel w/ direc t LDL, serum lipid calculation Not Available [facility] [address] [place], [address], 06/13/2015 05:19:14 09/22/19 15 09/21/2014 imagi ng/di agnos tic resul t No observ ation record ed. [address] , [place], [address], 09/30/2014 11:19:53 09/26/19 15 imagi ng/di agnos tic resul t No observ ation record ed. [email or web address] Not Available 2014 11:08:28 10/01/19 15 09/27/2014 imagi ng/di agnos tic resul t No observ ation record ed. [address] [place], [address], 10/03/2014 11:08:29 11/09/19 15 11/08/2014 imagi ng/di agnos tic resul t No observ ation record ed. [email or web address] Not Available 2014 15:10:11 12/02/19 15 12/01/2014 imagi ng/di agnos tic resul t No observ ation record ed. [email or web address] Not Available 2014 10:38:41 01/03/20 15 12/31/2014 imagi ng/di agnos tic resul t No observ ation record ed. [facility] (Rad) [address] [place], [address], 01/02/2015 09:50:17 01/07/20 15 01/05/2015 imagi ng/di agnos tic resul t No observ ation record ed. [email or web address] [facility], [place], [address], 01/06/2015 09:32:38 03/10/20 15 03/10/2015 imagi ng/di agnos tic resul t No observ ation record ed. [email or web address] [facility] (Rad) [address] [place], [address], 03/10/2015 12:50:58 03/11/20 15 03/11/2015 CV EKG 12 lead MOJGAN TABOR MD: KIRILL ANN MD 6905 ACCT: [id number] ADMIT/ SERVIC E DATE: DISCHA RGE DATE: : 1959 PT TYPE: ADM IN SEX: M ORD SITE: [address] TEST DATE: 2014-05 PAT NAME: MOJGAN TABOR DEPART MENT: CARD 40 PATIEN T ID: [id number] ROOM: [facility] GENDER : MALE TECHNI MARIA ISABEL: CDN : 01-[address] BY: CADE ANN ORDER NUMBER : [id number] [id number] CJ Lu MD: FELIPE SELF MEASUR EMENTS INTERV ALS AXIS RATE: 145 P: 81 MD: 118 QRS: 19 QRSD: 82 T: 70 QT: 282 QTC: 438 INTERP RETIVE STATEM ENTS SINUS TACHYC ARDIA WITH SHORT MD INTERV AL WITH OCCASI ONAL VENTRI CULAR PREMAT URE COMPLE XES WITH OCCASI ONAL SUPRAV ENTRIC ULAR AMBER SEPTAL MYOCAR DIAL INFARC TION, PROBAB LY OLD NONSPE CIFIC ST SEGMEN T ABNORM ALITIE S, CANNOT RULE OUT ISCHEM IA ELECTR ONICAL LY SIGNED BY FELIPE SELF AT 17:03: 07 CDT [facility], [place], [address], 05/07/2015 04:08:47 03/11/20 15 03/11/2015 xr chest 1 view alejandraMOJGAN Hester 6905 ADMIT/ SERVIC E DATE: ACCT: [id number] DISCHA RGE DATE: : 1959 SEX: M ORD SITE: [facility] PT TYPE: ADM IN JING MUHAMMAD MD: KIRILL ANN MD STUDY DATE REPORT # ORDER # EXT ORDER ID [id number] 1.002 PROC CODE: CXR1VP ORT PROCED URE DESCRI PTION: XR CHEST 1 VIEW PORTAB LE I MPRESS ION: NO ACUTE INFILT RATE. EXAMIN ATION: PORTAB LE CHEST X-RAY 1 VIEW ACCESS ION: [id number] EXAM DATE/T TRAVON: 2014 8:36 PM CLINIC [...] SIGNED BY: MARYBEL CROUCH ER10/07/2014 8:54 PM [facility], [place], [address], 05/07/2015 04:08:47 03/12/20 15 03/12/2015 MRI brain wo MOJGAN TABOR 6905 ADMIT/ SERVIC E DATE: ACCT: [id number] DISCHA RGE DATE: : 1959 SEX: M ORD SITE: [facility] PT TYPE: ADM IN BRANDONI SABINA MD: KIRILL ANN MD STUDY DATE REPORT # ORDER # EXT ORDER ID [id number] 1.001 PROC CODE: BRNWOC PROCED URE DESCRI [...] BRAIN WITHOU T CONTRA ST. ACCESS ION: [id number] EXAM DATE/T TRAVON: 2014 11:23 AM CLINIC [...] WELL. ELECTR ONICAL LY SIGNED BY: CADE GRAY 11:51 AM build [facility], [place], [address], 05/07/2015 04:08:47 06/19/19 16 06/19/2015 imagi ng/di agnos tic resul t No observ ation record ed. [email or web address] Not Available 2015 09:33:44 06/19/19 16 06/19/2015 imagi ng/di agnos tic resul t No observ ation record ed. [facility] (Lab) [address] [place] [address] , [place], [address], 06/19/2015 09:33:44 06/19/19 16 06/19/2015 imagi ng/di agnos tic resul t No observ ation record ed. [facility] (Lab) [address] [place] [address] [place], [address], 06/20/2015 09:57:26 06/20/19 16 06/19/2015 imagi ng/di agnos tic resul t No observ ation record ed. [address] [place], [address], 06/20/2015 10:01:56 05/09/20 19 05/09/2019 , les aldana id arter y No observ ation record ed. [address] [place], [address], 05/09/2019 17:59:20 Result Notes None recorded. Problems Name Problem SNOMED Code Status Onset Date Resolution Date Notes Provider Name and Address Organization Details Recorded Time Low back pain 323521311 Active Burke Ann MD Attn: Zulemalivia lu,[address] [facility], [place], [address], [place] [facility] 5 16:09:38 Essential hypertension 31461815 Active Burke Ann MD Attn: Austin tabitha,[address] [facility], [place], [address], [place] [facility] 6 18:34:53 Anxiety 43445371 Active Burke Ann MD Attn: Austin lu,[address] [facility], [place], [address], [place] [facility] 5 15:03:30 Laceration - injury 806533047 Active Burke Ann MD Attn: Zulemalivia lu,[address] [facility], [place], [address], [place] [facility] 5 15:31:20 Seizure disorder 244681185 Active Burke Ann MD Attn: Austin tabitha,[address] [facility], [place], [address], [place] [facility] 6 18:34:53 Cerebrovascula r accident 556015740 Active Burke Ann MD Attn: Austin tabitha,[address] [facility], [place], [address], [place] [facility] 6 18:34:53 Insomnia 865327281 Active Burke Ann MD Attn: Austin lu,[address] [facility], [place], [address], [place] [facility] 5 15:31:20 Problem Notes None recorded. Procedures Surgical History None recorded. Imaging Results Imaging Date Name Status LastModified by Organiz ation Details LastModified Time 09/21/2014 imaging/diagn ostic result completed [address] [place], [address], 09/30/2014 11:19:53 09/25/2014 imaging/diagn ostic result completed Information not available 10/03/2014 11:08:28 09/27/2014 imaging/diagn ostic result completed [address] [place], [address], 10/03/2014 11:08:29 11/08/2014 imaging/diagn ostic result completed Information not available 11/11/2014 15:10:11 12/01/2014 imaging/diagn ostic result completed [email or web address] Information not available 12/02/2014 10:38:41 12/31/2014 imaging/diagn ostic result completed [email or web address] [facility] [address] [place], [address], 01/02/2015 09:50:17 01/05/2015 imaging/diagn ostic result completed [email or web address] [place], [address], 01/06/2015 09:32:38 03/10/2015 imaging/diagn ostic result completed [email or web address] [facility] ([facility]) [address] [place], [address], 03/10/2015 12:50:58 03/11/2015 CV EKG 12 [place], [address], 05/07/2015 04:08:47 03/11/2015 xr chest 1 [place], [address], 05/07/2015 04:08:47 03/12/2015 [place], [address], 05/07/2015 04:08:47 06/19/2015 imaging/diagn ostic result completed [email or web address] Information not available 06/19/2015 09:33:44 06/19/2015 imaging/diagn ostic result completed [facility] (Lab) [address] [place] [address] [place], [address], 06/19/2015 09:33:44 06/19/2015 imaging/diagn ostic result completed [facility] (Lab) [address] [place] [address] [place], [address], 06/20/2015 09:57:26 06/19/2015 imaging/diagn ostic result completed [address] [place], [address], 06/20/2015 10:01:56 05/09/2019 US, duplex, carotid artery completed [address] [place], [address], 05/09/2019 17:59:20 Procedure Notes None recorded. Medical [...] Details Last Updated DateTime 5 22 /min 15119.9 38557 g 98.7 [degF] 170.18 cm 21.4 kg/m2 80 /min 148 mm[Hg] 94 mm[Hg] Leonor Arauz MA [facility] 5 15:57:48 Date Recorded Body height Body mass index (BMI) Body weight Heart rate Respiratory rate Body temperature Systolic blood pressure Diastolic blood pressure Provider Name and Address Organization Details Last Updated DateTime 5 170.18 cm 21.5 kg/m2 73268.1 5469 g 88 /min 20 /min 98.2 [degF] 132 mm[Hg] 80 mm[Hg] Fior Pereyra MA [facility] 5 12:08:47 Date Recorded Body temperature Body height Body mass index (BMI) Heart rate Respiratory rate Body weight Systolic blood pressure Diastolic blood pressure Provider Name and Address Organization Details Last Updated DateTime 5 97.9 [degF] 175.26 cm 20.2 kg/m2 78 /min 18 /min 44525.1 5469 g 142 mm[Hg] 90 mm[Hg] Jeannasunitha Luan [facility] 5 13:46:55 Date Recorded Heart rate Body height Respiratory rate Body mass index (BMI) Body weight Body temperature Systolic blood pressure Diastolic blood pressure Provider Name and Address Organization Details Last Updated DateTime 6 92 /min 170.18 cm 20 /min 21.5 kg/m2 38809.1 5469 g 98 [degF] 102 mm[Hg] 78 mm[Hg] Leonor Arauz MA [facility] 6 16:31:07 Social History None recorded. Functional Status None recorded. Mental Status None recorded. Family History Relationship Description Onset Age of this Age Resolved Age Notes LastModified by Organization Details LastModified Time Mother Heart disease 59 [email or web address] Not available 2015 16:32:53 Medical History Condition Response Coronary Artery Disease N Other N High Blood Pressure Y Atrial Fibrillation N Kidney or Bladder Problems N Thyroid Problems N GI Problems N Depression N COPD N Blood Clots N Skin Problems N Anemia N Heart Attack ([place]) N Anxiety Disorder Y Diabetes N Muscle, Joint, or Bone Problems N Seizures/Epilepsy Y Acid Reflux (GERD) N Cancer N Stroke Y Asthma N Allergies N High Cholesterol N Hepatitis N Liver Disease N Headaches Y Heart Failure N Osteoporosis N Past Encounters Encounter ID Performer Location Encounter Start Date Encounter Closed Date Diagnosis/Indication Diagnosis SNOMED-CT Code Diagnosis ICD10 Code Diagnosis Note [id number] Jeannie Sherman RN [facility] (Adult/Fa m Med) [address] [place] [phone] 06/10/2014 13:26:21 06/10/2014 18:13:06 Laceration - injury 677715181 Seizure disorder 460115086 Cerebrovas cular accident 400832258 Insomnia 045903135 [id number] Nata Albert LPN [facility] (Adult/Fa m Med) [address] [place] [phone] 09/18/2014 14:45:50 09/18/2014 18:01:22 Seizure disorder 928370696 Anxiety 21901431 Low back pain 308646869 [id number] Crystal Toy [facility] (Adult/Fa m Med) [address] [place] [phone] 04/16/2015 11:24:38 04/16/2015 17:33:17 Essential hypertension 54573612 I10 Anxiety 09012738 F41.9 Seizure disorder 2473134 02 G40.909 [id number] Dotty Peace [facility] (Adult/Fa m Med) [address] [place] [phone] 06/12/2015 15:25:04 06/27/2015 12:04:51 Essential hypertension 99461346 I10 Seizure disorder 8941163 02 G40.909 Cerebrovas cular accident 180134149 I63.9 Health Concerns Section Related Observation LastModified by Organization Detai ls LastModified Time None Recorded Concern Status LastModified by Organization Details LastModified Time None Recorded Advance Directives Directive None Recorded Payers Encounter Date Sequence Insurance Name Policy Number Policy Gilbert Covered Member ID Gilbert Member ID Guarantor Name 06/10/[address] [facility] PRIOR TO 11/27/2020 (MEDICAID REPLACEMENT - HMO) Mojgan Tabor [id number] Mojgan Tabor 09/18/[address] [facility] PRIOR TO 11/27/2020 (MEDICAID REPLACEMENT - HMO) Mojgan Tabor [id number] Mojgan Tabor 04/16/[address] [facility] PRIOR TO 11/27/2020 (MEDICAID REPLACEMENT - HMO) Mojgan Tabor [id number] Mojgan Tabor 06/12/[address] [facility] PRIOR TO 11/27/2020 (MEDICAID REPLACEMENT - HMO) Mojgan Tabor [id number] Mojgan Tabor Notes Date Note Type Note Provider Name and Address Organization Details Recorded Time 04/16/2015 text/html FOLLOW up care since stroke Burke Ann MD Attn: Accounting,[address] [place], [address], [place] [facility] 04/16/2015 15:03:31
--- OUTSIDE RECORDS SUMMARY | 2024-07-13 22:59 | XMS_ITS | Clinical Summary ---
Author Organization [facility] [employer] Address [address] [place] [address] Care Team Providers Care Engineer Station Mainline Name Role Phone Elizabeth Sullivan RN Unavailable [phone] Dany Monsivais MD Primary Care Provider [phone] Source Comments [facility],non-owned Affiliates and Associated Physician Practices is amultiple site organization consisting of ambulatory clinics and hospital sitesin [place], [place], [place] and [place]. This disclosure is being madepursuant to the Care Everywhere program and may not contain all information available regarding this patient. Last updated 18.[facility] [employer] Allergies Active Allergy Reactions Criticality Noted Date Comments Clonazepam Psychiatric Medium 12/09/2021 hallucinations Medications * Be aware that medications may not be up to date on this document. Alwaysverify current medications with the patient. Medication Sig Dispensed Refills Start Date End Date Status folic acid (Folvite) 1 MG tablet 1 (one) tablet by Enteral Tube route once daily 04/01/2022 Active thiamine (Vitamin B-1) 100 MG tablet 1 (one) tablet by Enteral Tube route once daily 04/01/2022 Active aspirin (Aspirin) 81 MG chew tablet 1 (one) tablet by Enteral Tube route once daily Active artificial tears ophthalmic ointment Instill into both eyes every 8 hours 10/22/2022 Active Additional Information Patient not taking.Reason: Other, Reported on 06/08/2024 metoprolol tartrate IR (Lopressor) 25 MG tablet 1 (one) tablet by Enteral Tube route 2 times daily 12/15/2022 Active acetaminophen (Tylenol) 325 MG tablet 2 (two) tablets by Enteral Tube route every 6 hours as needed Maximum allowable Acetaminophen amount = 4 Grams (4000 mg) / 24 hours. 01/12/2023 Active Additional Information Patient taking differently:650 mg Enteral Tube 3 TIMES DAILY, Maximum allowable Acetaminophen amount = 4 Grams (4000 mg) / 24 hours.Pt takes 160 mg/5mL liquid which is the same as 325 mg tab, Reason: Other, Reported on 06/08/2024 Calcium Carbonate Antacid (calcium carbonate, 500 mg elemental Ca/5 mL,) 1250 MG/5ML suspension 5 mL by Enteral Tube route every 6 hours as needed 02/28/2023 Active atorvastatin (Lipitor) 40 MG tablet 1 (one) tablet by Enteral Tube route at bedtime 30 tablet 02/28/2023 Active guaiFENesin (Robitussin) 100 MG/5ML solution 15 mL by Enteral Tube route Every 6 Hours (03,09,15,21) 200 mL 02/28/2023 Active polyethylene glycol 3350 (Miralax) 17 g packet 17 (seventeen) g by Enteral Tube route 2 times daily 15 packet 02/28/2023 Active senna (Senokot) 8.6 MG tablet 1 (one) tablet by Enteral Tube route once daily 30 tablet 03/01/2023 Active bisacodyl (Dulcolax) 10 MG suppository Insert 1 (one) suppository into the rectum once daily as needed for Constipation Active albuterol-ipratrop ium (Duo-Neb) 0.5-2.5 (3) MG/3ML nebulizer solution Inhale 3 mL by mouth every 6 hours as needed for Shortness of Breath or Wheezing Active apixaban (Eliquis) 5 MG tablet Take 1 (one) tablet by mouth 2 times daily Per G-tube 09/10/2023 Active levETIRAcetam (Keppra) 100 MG/ML oral solution 20 mL by Enteral Tube route 2 times daily for 90 days 1200 mL 2 05/15/2024 08/13/2024 Active Additional Information Patient taking differently: 1,750 mgEnteral Tube 2 TIMES DAILY, Reason: Provider adjusted, Reported on 06/09/2024 cloBAZam (Onfi) 10 MG tablet Take 1 (one) tablet by mouth 2 times daily 60 tablet 5 05/15/2024 Active lacosamide (Vimpat) 200 MG tablet Take 1 (one) tablet by mouth 2 times daily for 90 days 60 tablet 2 05/15/2024 08/13/2024 Active finasteride (Proscar) 5 MG tablet 1 (one) tablet by Per G Tube route once daily 05/16/2024 Active glycopyrrolate (Robinul) 1 MG tablet 1 (one) tablet by Per G Tube route 2 times daily 05/08/2024 Active lacosamide (Vimpat) 10 MG/ML oral solution 20 mL by Per G Tube route 2 times daily Active Sodium Phosphates (FLEET ENEMA RE) Active magnesium hydroxide (Milk of Magnesia) 400 MG/5ML suspension Take 30 mL by mouth as needed for Constipation Active ondansetron (Zofran) 4 MG tablet 1 (one) tablet by Enteral Tube route every 6 hours as needed for Nausea/Vomiting Active pantoprazole (Protonix) 40 MG packet Take 1 (one) packet by mouth 2 times daily for 60 days 120 Each 06/09/2024 08/08/2024 Active valproic acid (Depakene) 250 MG/5ML solution 25 mL by Per G Tube route every 6 hours 473 mL 06/09/2024 Active valproic acid (Depakene) 250 MG/5ML solution Take 10 mL by mouth every 6 hours Active Active Problems Problem Noted Date Diagnosed Date G tube feedings 06/07/2024 Anemia, unspecified type 09/06/2023 Hypertension, unspecified [...] artery disease) 03/11/2022 Severe protein-calorie malnutrition 03/11/2022 Seizure disorder 12/30/2021 COVID-19 04/14/2021 History of [...] Problem Noted Date Diagnosed Date Resolved Date Hematemesis with nausea 06/07/202405/30 Dehydration 09/06/2023 09/20/2023 Weakness 06/09/2023 06/12/2023 Urinary [...] Sepsis without acute organ dysfunction 03/08/2022 11/09/2022 Status epilepticus 12/30/2021 Weakness 08/22/2020 12/30/2021 Urinary tract infection 08/20/2020 04/11/2020 Difficulty in walking, not e lsewhere classified [...] No evidence of infection Urine cultures from [facility] last month were negative growth as [...] Department Care Team Description 06/07/2024 5:04 PM [facility] [facility] - 06/09/2024 9:50 PM [facility] Hospital Encounter [facility] Early Admission Unit [address] [place] [phone] Elizabeth Hernandez MD Miller, MD Marleny Caldera Shiva F, MD Heis, Farah, MD Internal Medicine Discharge Disposition: Other Facility Not Defined Elsewhere 06/07/2024 Travel 05/15/2024 10:08 AM [facility] [facility] [facility] - 05/15/2024 11:44 PM [facility] Emergency [facility] EMERGENCY DEPARTMENT [address] [place] [phone] Caio Elder MD Garcia, Andrew M, MD Abdominal pain, generalized (Primary Dx); Diverticulosis; Prostate enlargement; Nephrolithiasis Discharge Disposition: Nursing Home Facility 05/15/2024 Travel 05/03/2024 Travel 04/30/2024 9:21 PM [facility] [facility] - 05/01/2024 2:23 AM [facility] Emergency [facility] EMERGENCY DEPARTMENT [address] [place] [phone] Elmo Medeiros MD Kraemer, Carl M, MD Ground-level fall; Concussion with unknown loss of consciousness status, initial encounter; NPH (normal pressure hydrocephalus) (HCC) Discharge Disposition: Nursing Home Acute Care 04/30/2024 Travel 04/21/2024 3:04 PM [facility] [facility] - 04/21/2024 9:01 PM [facility] Emergency [facility] EMERGENCY DEPARTMENT [address] [place] [phone] Alden Del Rosario MD Attention to G-tube (HCC) (Primary Dx); Irritation around percutaneous endoscopic gastrostomy (PEG) tube site (HCC); Tracheostomy care (HCC) Discharge Disposition: Home or Self Care 04/21/2024 Travel from Last 3 Months Immunizations Name Administration [...] you have a drink containing alcohol? Never 06/08/2024 Q2: How many drinks containi ng alcohol do you have on a typical day when you are drinking? Patient does not drink Q3: How often do you have si x or more drinks on one occasion? Never 06/08/2024 Overall Financial Resource Strain (CARDIA) Answe r Date Recorded How hard is it for you to pa y for the very basics like food, housing, medical care, and heating? Not hard at all 06/19/2023 [facility] [place] of Occupat ional Health - Occupational Stress [...] Sign Reading Time Taken Comments Blood Pressure 141/91 06/09/2024 8:18 PM [facility] [employer] [facility] Pulse 83 06/09/2024 8:18 PM [employer] Temperature 36.9 C (98.4 F) 06/09/2024 8:18 PM [facility] [facility] Respiratory Rate 17 06/09/2024 8:18 PM [facility] [facility] Oxygen Saturation 94% 06/09/2024 12:25 PM [employer] Inhaled Oxygen Concentration 21% 06/09/2024 1 2:25 PM [facility] Weight 77.1 kg (170 lb) 06/08/2024 10:27 PM [facility] [facility] [facility] Height 175.3 cm (5' 9 ) 06/08/2024 10:27 PM [employer] Body Mass Index 25.1 06/08/2024 10:27 PM [employer] Plan of Treatment Upcoming Encounters Date Type Department Care Team (Late st Contact Info) Description 12/05/2024 1:00 PM CDT Office Visit [facility] - Neurology [address] [place] [address], [place] [address] Sean Raymundo, DO [address] [place] [address] [place] [address] Health Maintenance Due Date Last [...] years 1-dose series) 2021 COVID-19 VACCINE ( season) 2024 04/06/2021, 07/02/2020, 06/11/2020 INFLUENZA VACCINE (#1) 2024 2, 03/16/2021, 03/07/2020, Additional history exists DEPRESSION SCREENING 05/30/2024 DTAP/TDAP/TD VACCINES (3 - Td or Tdap) 06/06/2027 06/06/2017, 03/23/2017 SCREENING FOR DIABETES 06/08/2027 5, 06/08/2024, 06/08/2024, Additional history exists HEPATITIS C SCREENING Completed [...] Name Priority Date/Time Associated Diagnosis Comments CBC W/O DIFFERENTIAL AM Draw 06/09/2024 1:20 AM [facility] [facility] GLUCOSE - POINT OF CARE Routine 06/08/2024 6:22 PM [facility] GLUCOSE - POINT OF CARE Routine 06/08/2024 1:12 PM [employer] PHOSPHORUS BLOOD STAT 06/08/2024 4:11 AM [facility] [facility] MAGNESIUM BLOOD STAT 06/08/2024 4:11 AM [employer] [facility] LIPID PROFILE STAT 06/08/2024 4:11 AM [employer] CBC W/O DIFFERENTIAL STAT 06/08/2024 4:11 AM [employer] BASIC METABOLIC PANEL (CALCIUM TOTAL) STAT 06/08/2024 4:11 AM [employer] PT-INR [facility] STAT 06/08/2024 4:11 AM [employer] URINALYSIS REFLEX MICROSCOPIC REFLEX CULTURE STAT 06/07/2024 10:24 PM [employer] LIPASE BLOOD STAT 06/07/2024 8:01 PM [employer] COMPREHENSIVE METABOLIC PANEL STAT 06/07/2024 8:01 PM [employer] CBC W AUTO DIFFERENTIAL STAT 06/07/2024 8:01 PM [employer] URINALYSIS REFLEX MICROSCOPIC REFLEX CULTURE STAT 05/15/2024 6:12 PM [facility] [employer] CT CHEST ABDOMEN PELVIS W CONT STAT 05/15/2024 2:44 PM [employer] Abdominal pain, generalized CBC W AUTO DIFFERENTIAL STAT 05/15/2024 12:40 PM [employer] COMPREHENSIVE METABOLIC PANEL STAT 05/15/2024 12:40 PM [facility] [employer] [facility] [facility] MAGNESIUM BLOOD STAT 05/15/2024 12:40 PM [employer] PHOSPHORUS BLOOD STAT 05/15/2024 12:4 0 PM [facility] CT CERVICAL SPINE WO CONTRAST STAT 04/30/2024 11:05 PM [employer] Ground-level fall CT HEAD WO CONTRAST STAT 04/30/2024 1 1:05 PM [employer] Ground-level fall XR CHEST 1VW PORTABLE STAT 04/30/2024 10:13 PM [employer] Ground-level fall XR ABDOMEN KUB STAT 04/21/2024 5:41 PM [employer] Attention to G-tube (HCC) HEPATITIS C AB SCREEN RFLX NAAT QUANT Routine 09/01/2022 2:05 AM CDT HIV-1 HIV-2 ANTIBODY + HIV P24 AG PANEL Routine 09/01/2022 2:05 AM CDT from Last 3 Months or Most Recently Relevant to Health Maintenance Results * (ABNORMAL) CBC W/O DIFFERENTIAL (06/09/2024 1:20 AM [employer]) Only the most recent of2 resultswithin the time period is included. WBC 8.1 4.0 - 10.7 x10E9/L 06/09/2024 1:59 AM [facility] RBC Count 4.64 4.30 - 5.80 x10E12/L 06/09/2024 1:59 AM [facility] Hemoglobin 15.0 13.3 - 17.5 g/dL 06/09/2024 1:59 AM [facility] Hematocrit 45.6 38.7 - 51.1 % 06/09/2024 1:59 AM [facility] MCV 98.3(H) 80.0 - 98.0 fL 06/09/2024 1:59 AM [facility] MCH 32.3 26.7 - 33.6 pg 06/09/2024 1:59 AM [facility] MCHC 32.9 31.7 - 36.3 g/dL 06/09/2024 1:59 AM [facility] RDW-CV 13.3 11.3 - 14.8 % 06/09/2024 1:59 AM [facility] Platelet Count 105(L) 150 - 420 x10E9/L 06/09/2024 1:59 AM [facility] Comment:Platelets clumped on slide but appears decreased. Recommend repeat with a sodium citrate blue top tube. MPV 06/09/2024 1:59 AM [facility] Comment:Unable to report Blood BLOOD SPECIMEN / Unknown Lab Venipuncture / Unknown 06/09/2024 1:20 AM [facility] [facility] 06/09/2024 1:23 AM [facility] [facility] [facility] Lilliam Isaacs APRN-[employer] LAB - HEMATOLOGY ORDERABLES [facility] [address] [place] [phone], [facility] [phone] * GLUCOSE - POINT OF CARE (06/08/2024 6:22 PM [employer] [facility]) Only the most recent of2 resultswithin the time period is included. Glucose WB/POC 89 70 - 99 mg/dL 06/08/2024 6:23 PM [facility] Specimen Type Cap Fingerstick 2024 6:23 PM [facility] Blood BLOOD SPECIMEN / Unknown 06/08/2024 6:22 PM [facility] [facility] 06/08/2024 6:23 PM [facility] [facility] Myles Medrano MD LAB - POINT OF CARE ORDERABLES Performing Organization Address City/[facility]/ZIP Co de Phone Number [address] [address], [facility] [phone] * PT-INR [facility] (06/08/2024 4:11 AM [facility] [facility]) PT 14.1 12.1 - 14.8 Seconds 06/08/2024 4:46 AM [facility] INR 1.1 See Comment 06/08/2024 4:46 AM [facility] Comment:The suggested therap eutic range for standard coumadin (warfarin) therapy is an INR of 2.0-3.0. For high-risk patients (Mechanical Mitral Valve Prosthesis, etc.), the suggested prophylactic therapeutic range is an INR of 2.5-3.5. Blood BLOOD SPECIMEN / Unknown Venipuncture / Unknown 06/08/2024 4:11 AM [facility] [employer] [facility] 06/08/2024 4:18 AM [employer] Elizabeth Hernandez MD LAB - COAGULATION OR DERABLES [facility] [address] [place] [address], [facility] [phone] * (ABNORMAL) BASIC METABOLIC PANEL (CALCIUM TOTAL) (06/08/2024 4:11 AM [employer]) BUN 14 7 - 26 mg/dL 06/08/2024 4:58 AM [facility] Creatinine 0.57(L) 0.71 - 1.16 mg/dL 06/08/2024 4:58 AM [facility] Sodium 140 136 - 145 mmol/L 06/08/2024 4:58 AM [facility] Potassium 3.9 3.5 - 4.5 mmol/L 06/08/2024 4:58 AM [facility] Chloride 108(H) 98 - 107 mmol/L 06/08/2024 4:58 AM [facility] CO2 27 22 - 29 mmol/L 06/08/2024 4:58 AM [facility] Glucose 105(H) 70 - 99 mg/dL 06/08/2024 4:58 AM [facility] Calcium 9.3 8.4 - 10.2 mg/dL 06/08/2024 4:58 AM [facility] Anion Gap 5(L) 6 - 16 06/08/2024 4:58 AM [facility] BUN/Creatinine Ratio 25(H) 7 - 23 06/08/2024 4:58 AM [facility] Osmolality Calculated 291 275 - 295 mOsm/kg 06/08/2024 4:58 AM [facility] eGFR by CKD-EPI >90 >=90 mL/min/1.7 3 m2 06/08/2024 4:58 AM [facility] Blood BLOOD SPECIMEN / Unknown Venipuncture / Unknown 06/08/2024 4:11 AM [facility] [facility] [facility] 06/08/2024 4:18 AM [facility] [facility] [facility] [employer] LAB - CHEMISTRY ORDERABLES Performing Organization Address City/[facility]/ZIP Co de Phone Number [address] [address], [facility] [phone] * PHOSPHORUS BLOOD (06/08/2024 4:11 AM [employer]) Only the most recent of2 resultswithin the time period is included. Phosphorus 3.0 2.8 - 5.1 mg/dL 06/08/2024 4:49 AM [facility] Blood BLOOD SPECIMEN / Unknown Venipuncture / Unknown 06/08/2024 4:11 AM [employer] 06/08/2024 4:18 AM [employer] [employer] LAB - CHEMISTRY ORDERABLES Performing Organization Address [facility] [[email or web address]] Co de Phone Number [address] [address], [facility] [phone] * MAGNESIUM BLOOD (06/08/2024 4:11 AM [employer]) Only the most recent of2 resultswithin the time period is included. Magnesium 1.9 1.6 - 2.6 mg/dL 06/08/2024 4:58 AM [facility] Blood BLOOD SPECIMEN / Unknown Venipuncture / Unknown 06/08/2024 4:11 AM [employer] 06/08/2024 4:18 AM [employer] [employer] LAB - CHEMISTRY ORDERABLES Performing Organization Address [facility]/ZIP Co de Phone Number [address] [address], [facility] [phone] * (ABNORMAL) LIPID PROFILE (06/08/2024 4:11 AM [employer] [facility]) Cholesterol Total 136 <200 mg/dL 06/08/2024 4:49 AM [facility] HDL 35(L) >40 mg/dL 06/08/2024 4:49 AM [facility] Comment: ATP III Classification of HDL Cholesterol: <40 mg/dL: Considered a major risk factor. >60 mg/dL: Considered a negative risk factor. LDL Calculated 88 <100 mg/dL 06/08/2024 4:49 AM [facility] Comment: ATP III Classification of LDL Cholesterol: <100 mg/dL: Optimal 100 - 129 mg/dL: Near Optimal/Above Optimal 130 - 159 mg/dL: Borderline High 160 - 189 mg/dL: High >190 mg/dL: Very High Triglycerides 65 <150 mg/dL 06/08/2024 4:49 AM [facility] Comment: ATP III Classification of Triglycerides: <150 mg/dL: Normal 150 - 199 mg/dL: Borderline High 200 - 400 mg/dL: High >500 mg/dL: Very High Blood BLOOD SPECIMEN / Unknown Venipuncture / Unknown 06/08/2024 4:11 AM [employer] 06/08/2024 4:18 AM [facility] Lilliam Isaacs HORTICULTURAL WORKER-[employer] LAB - CHEMISTRY ORDERABLES Performing Organization Address City/State/[facility] [[email or web address]] Co de Phone Number [facility] [address] [place] [phone], [facility] [phone] * (ABNORMAL) URINALYSIS REFLEX MICROSCOPIC REFLEX CULTURE (06/07/2024 10:24 PM [employer]) Only the most recent of2 resultswithin the time period is included. Color UA Yellow Straw, Yellow 06/07/2024 11:05 PM [facility] Clarity UA Clear Clear 06/07/2024 11:05 PM [facility] Specific Morley UA >1.060(H) 1.005 - 1.030 06/07/2024 11:05 PM [facility] pH UA 7.0 5.0 - 8.0 pH 06/07/2024 11:05 PM [facility] Protein UA Negative Negative 06/07/2024 11:05 PM [facility] Glucose UA Negative Negative 06/07/2024 11:05 PM [facility] Ketone UA 1+(A) Negative 06/07/2024 11:05 PM [facility] Bilirubin UA Negative Negative 06/07/2024 11:05 PM [facility] Blood UA Negative Negative 06/07/2024 11:05 PM [facility] Nitrite UA Negative Negative 06/07/2024 11:05 PM [facility] Leukocyte Esterase Negative Negative 06/07/2024 11:05 PM [facility] Urobilinogen UA 2.0(A) Negative mg/dL 06/07/2024 11:05 PM [facility] Comment UA Microscopic not indicated. 06/07/2024 11:05 PM [facility] Urine URINE SPECIMEN OBTAINED BY CLEAN CATCH PROCEDURE / Unknown Collection / Unknown 06/07/2024 10:24 PM [employer] 06/07/2024 10:[address] [facility] - 06/07/2024 11:05 PM [employer] Elizabeth Hernandez MD LAB - URINALYSIS ORD ERABLES [address] [phone] [phone] * (ABNORMAL) CBC W AUTO DIFFERENTIAL (06/07/2024 8:01 PM [employer]) Only the most recent of2 resultswithin the time period is included. WBC 9.2 4.0 - 10.7 x10E9/L 06/07/2024 8:17 PM [facility] RBC Count 4.45 4.30 - 5.80 x10E12/L 06/07/2024 8:17 PM [facility] Hemoglobin 14.4 13.3 - 17.5 g/dL 06/07/2024 8:17 PM [facility] Hematocrit 42.4 38.7 - 51.1 % 06/07/2024 8:17 PM [facility] MCV 95.3 80.0 - 98.0 fL 06/07/2024 8:17 PM [facility] MCH 32.4 26.7 - 33.6 pg 06/07/2024 8:17 PM [facility] MCHC 34.0 31.7 - 36.3 g/dL 06/07/2024 8:17 PM [facility] RDW-CV 13.5 11.3 - 14.8 % 06/07/2024 8:17 PM [facility] Platelet Count 184 150 - 420 x10E9/L 06/07/2024 8:17 PM [facility] MPV 13.0(H) 7.8 - 11.4 fL 06/07/2024 8:17 PM [facility] Neutrophil % 69.2 41.0 - 74.0 % 06/07/2024 8:17 PM [facility] Lymphocyte % 20.6 17.0 - 47.0 % 06/07/2024 8:17 PM [facility] Monocyte % 7.6 3.0 - 11.0 % 06/07/2024 8:17 PM [facility] Eosinophil % 2.2 0.0 - 7.0 % 06/07/2024 8:17 PM [facility] Basophil % 0.2 0.0 - 1.6 % 06/07/2024 8:17 PM [facility] Immature Granulocytes % 0.2 0.0 - 1.0 % 06/07/2024 8:17 PM [facility] Neutrophil Absolute 6.40 1.60 - 7.50 x10E9/L 06/07/2024 8:17 PM [facility] Lymphocyte Absolute 1.90 1.00 - 4.40 x10E9/L 06/07/2024 8:17 PM [facility] Monocyte Absolute 0.70 0.15 - 1.00 x10E9/L 06/07/2024 8:17 PM [facility] Eosinophil Absolute 0.20 0.00 - 0.60 x10E9/L 06/07/2024 8:17 PM [facility] Basophil Absolute 0.02 0.00 - 0.13 x10E9/L 06/07/2024 8:17 PM [facility] Blood BLOOD SPECIMEN / Unknown Venipuncture / Unknown 06/07/2024 8:01 PM [facility] 06/07/2024 8:07 PM [facility] Elizabeth Hernandez MD LAB - HEMATOLOGY ORD ERABLES [facility] [address] [place] [address] [phone] * (ABNORMAL) COMPREHENSIVE METABOLIC PANEL (06/07/2024 8:01 PM [facility]) Only the most recent of2 resultswithin the time period is included. BUN 15 7 - 26 mg/dL 06/07/2024 8:36 PM [facility] Creatinine 0.62(L) 0.71 - 1.16 mg/dL 06/07/2024 8:36 PM [facility] Sodium 140 136 - 145 mmol/L 06/07/2024 8:36 PM [facility] Potassium 4.8(H) 3.5 - 4.5 mmol/L 06/07/2024 8:36 PM [facility] Chloride 106 98 - 107 mmol/L 06/07/2024 8:36 PM [facility] CO2 26 22 - 29 mmol/L 06/07/2024 8:36 PM [facility] Glucose 108(H) 70 - 99 mg/dL 06/07/2024 8:36 PM [facility] Calcium 9.5 8.4 - 10.2 mg/dL 06/07/2024 8:36 PM [facility] Protein Total 7.5 6.0 - 8.3 g/dL 06/07/2024 8:36 PM [facility] Albumin 3.7 3.4 - 5.0 g/dL 06/07/2024 8:36 PM [facility] Bilirubin Total 0.6 0.2 - 1.2 mg/dL 06/07/2024 8:36 PM [facility] Alkaline Phosphatase 90 40 - 150 U/L 06/07/2024 8:36 PM [facility] ALT 19 5 - 55 U/L 06/07/2024 8:36 PM [facility] AST 27 5 - 34 U/L 06/07/2024 8:36 PM [facility] Anion Gap 8 6 - 16 06/07/2024 8:36 PM [facility] BUN/Creatinine Ratio 24(H) 7 - 23 06/07/2024 8:36 PM [facility] Osmolality Calculated 291 275 - 295 mOsm/kg 06/07/2024 8:36 PM [facility] Albumin/Globulin Ratio 1.0(L) 1.1 - 2.3 06/07/2024 8:36 PM [employer] [facility] eGFR by CKD-EPI >90 >=90 mL/min/1.7 3 m2 06/07/2024 8:36 PM [facility] Blood BLOOD SPECIMEN / Unknown Venipuncture / Unknown 06/07/2024 8:01 PM [employer] 06/07/2024 8:07 PM [employer] Elizabeth Hernandez MD LAB - CHEMISTRY [facility] Performing Organization Address [facility]/ZIP Co de Phone Number [address] [phone], [facility] [phone] * LIPASE BLOOD (06/07/2024 8:01 PM [employer]) Lipase 14 8 - 78 U/L 06/07/2024 8:36 PM [employer] [facility] Blood BLOOD SPECIMEN / Unknown Venipuncture / Unknown 06/07/2024 8:01 PM [employer] 06/07/2024 8:07 PM [employer] Narrative [facility] - 06/07/2024 8:36 PM [employer] Lipase results from the [employer] Alinity analyzer may not be comparable with other methodologies. Elizabeth Hernandez MD LAB - CHEMISTRY [facility] Performing Organization Address [facility]/ZIP Co de Phone Number [address] [phone], [facility] [facility] [phone] * CT Chest Abdomen Pelvis W Cont (05/15/2024 2:44 PM [employer]) Anatomical Region Laterality Modality Chest, Abdomen, Pelvis Computed Tomography 05/15/2024 3:06 PM [employer] Impressions 05/15/2024 4:01 PM [employer] Impression 1. Debris noted in the right mainstem bronchus and the bilateral lower lobe peribronchial wall thickening suggestive of aspiration. 2. Centrilobular emphysematous disease of the lungs. 3. Bilateral nonobstructive nephrolithiasis. 4. Colonic diverticulosis without evidence of diverticulitis. 5. Prostatomegaly. Recommend correlation with PSA. Report dictated by Flavio Stover MD(vice president of advertising). I, John Graham MD have personally reviewed and interpreted this examination/study. > Interpreting Provider: John Graham MD on 05/15/2024 4:01 PM Narrative 05/15/2024 4:01 PM [employer] PROCEDURE: CT CHEST ABDOMEN PELVIS W CONT, DATE/TIME OF EXAM: 05/15/2024 2:44 PM, LOCATION [facility] INDICATION: R10.84: Abdominal pain, generalized ADDITIONAL [...] OF EXAM:05/15/2024 2:44 PM, LOCATION [facility] INDICATION: R10.84: Abdominal pain, generalized ADDITIONAL [...] with PSA. Report dictated by Flavio Stover MD(vice president of advertising). I, John Graham MD have personally reviewed and interpreted this examination/study. > Interpreting Provider: John Graham MD on 05/15/2024 4:01 PM Caio Elder MD CT ORDERABLES * CT CERVICAL SPINE WO CONTRAST (04/30/2024 11:05 PM [employer]) Anatomical Region Laterality Modality Spine Computed Tomogra phy 04/30/2024 11:1 6 PM [employer] Impressions 04/30/2024 11:34 PM [employer] IMPRESSION: 1. No acute intracranial hemorrhage or [...] 04/30/2024 11:34 PM Narrative 04/30/2024 11:34 PM [employer] PROCEDURE: CT HEAD WO CONTRAST, CT CERVICAL [...] CT HEAD WO CONTRAST (04/30/2024 11:05 PM [employer]) Anatomical Region Laterality Modality Head Computed Tomogra phy 04/30/2024 11:1 6 PM [employer] Impressions 04/30/2024 11:34 PM [employer] IMPRESSION: 1. No acute intracranial hemorrhage or [...] 04/30/2024 11:34 PM Narrative 04/30/2024 11:34 PM [employer] PROCEDURE: CT HEAD WO CONTRAST, CT CERVICAL [...] XR Chest 1Vw Portable (04/30/2024 10:13 PM [employer]) Anatomical Region Laterality Modality Chest Digital Radiogra phy 04/30/2024 10:1 8 PM [employer] Narrative 05/01/2024 10:01 AM [employer] PROCEDURE: XR CHEST 1VW PORTABLE, DATE/TIME OF EXAM: 04/30/2024 10:13 PM, LOCATION [facility] INDICATION: W18.30XA: Ground-level fall ADDITIONAL CLINICAL [...] OF EXAM: 04/30/2024 10:13PM, LOCATION [facility] INDICATION: W18.30XA: Ground-level fall ADDITIONAL CLINICAL [...] * XR Abdomen Kub (04/21/2024 5:41 PM [employer]) Anatomical Region Laterality Modality Abdomen Digital Radiogra phy 04/21/2024 5:50 PM [employer] Impressions 04/21/2024 6:02 PM [employer] IMPRESSION: 1.Nonobstructive bowel gas pattern. 2.G-tube in place. No extraluminal extravasation of contrast Report dictated by Virgil Clark MD I, Nj Escobar MD have personally reviewed and interpreted this examination/study. > Interpreting Provider: Nj Escobar MD on 04/21/2024 6:02 PM Narrative 04/21/2024 6:02 PM [employer] PROCEDURE: XR ABDOMEN KUB, DATE/TIME OF EXAM: 04/21/2024 5:41 PM, LOCATION [facility] INDICATION: Z43.1: Attention to G-tube (HCC) [...] EXAM: 04/21/2024 5:41 PM, LOCATION [facility] INDICATION: Z43.1: Attention to G-tube (HCC) [...] tive 09/01/2022 3:09 AM CDT [facility] Comment:Hepatitis C Antibody screen indicates no [...] Abarca MD LAB - CHEMISTRY [facility] [address] [id number], [place] [phone] * HIV-1 HIV-2 ANTIBODY + HIV P24 AG PANEL (09/01/2022 2:05 AM CDT) HIV Antigen/Antibod y 1 & 2 Non-reacti ve Non-react phan 09/01/2022 3:09 AM CDT [facility] Comment:No Laboratory eviden ce of HIV infection. 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 Adv Directive/Living Will/POA 07/19/2019 4:10 PM * Full Code (Latest Code Status on File) Date Activated Date Inactivated Comments 06/08/2024 12:11 AM 06/10/2024 2:02 AM * Full Code Date Activated Date Inactivated Comments 02/17/2024 1:53 AM 02/20/2024 6:57 PM * Full Code Date Activated Date Inactivated Comments 09/06/2023 10:09 PM 09/09/2023 7:47 PM * Full Code Date Activated Date Inactivated Comments 06/09/2023 11:46 PM 06/28/2023 7:36 PM * Full Code Date Activated Date Inactivated Comments 02/23/2023 8:34 AM 02/28/2023 7:26 PM Care Teams Engineer Station Mainline Relationship Specialty Start Date End Date Dany Monsivais MD [address] [id number] PCP - General Family Medicine 11/18/23 Elizabeth Sullivan, ALFRED Loss Mitigation Specialist 10/14/17
--- OUTSIDE RECORDS SUMMARY | 2024-07-13 22:59 | XMS_ITS | Referral Summary ---
Author Organization [facility] Address [address] [place] [address] Care Team Providers Care Safety Aide Name Role Phone Elizabeth Sullivan RN Unavailable [phone] Dany Monsivais MD Primary Care Provider [phone] Source Comments [facility],non-owned Affiliates and Associated Physician Practices is amultiple site organization consisting of ambulatory clinics and hospital sitesin [place], [place], [place]. This disclosure is being madepursuant to the Care Everywhere program and may not contain all information available regarding this patient. Last updated 18.[facility] Encounters Date Type Department Care Team Description 06/07/2024 5:04 PM ALMOND SORTER - 06/09/2024 9:50 PM [facility]MOND S[facility] Hospital Encounter [facility] Early Admission Unit [address] [place] [address] Elizabeth Hernandez MD Miller, MD Marleny Caldera Shiva F, MD Heis, Farah, MD Internal Medicine Discharge Disposition: Other Facility Not Defined Elsewhere 06/07/2024 Travel 05/15/2024 Travel 05/15/2024 10:08 AM ALMOND SORTER - 05/15/2024 11:44 PM [facility]MOND SORTER Emergency [facility] EMERGENCY DEPARTMENT [address] [place] [address] Caio Elder MD Garcia, Andrew M, MD Abdominal pain, generalized (Primary Dx); Diverticulosis; Prostate enlargement; Nephrolithiasis Discharge Disposition: Retirement Facility 05/03/2024 Travel 04/30/2024 9:21 PM ALMOND SORTER - 05/01/2024 2:23 AM [facility] Emergency [facility] EMERGENCY DEPARTMENT [address] [place] [address] Elmo Medeiros MD Kraemer, Carl M, MD Ground-level fall; Concussion with unknown loss of consciousness status, initial encounter; NPH (normal pressure hydrocephalus) ([facility]) 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 Care 04/30/2024 Travel 04/21/2024 Travel 04/21/2024 3:04 PM [facility] - 04/21/2024 9:01 PM [facility] Emergency [facility] EMERGENCY DEPARTMENT [address] [place] [address] Alden Del Rosario MD Attention to G-tube (HCC) (Primary Dx); Irritation around percutaneous endoscopic gastrostomy (PEG) tube site (HCC); Tracheostomy care ([facility]) Discharge Disposition: Home or Self Care from Last 3 Months Allergies Active Allergy [...] 023 Immunizations Name Administration Dates Next Due Covid [...] Not hard at all 06/19/2023 [facility] Occupat ional Health - Occupational Stress [...] Comments Blood Pressure 141/91 06/09/2024 8:18 PM [facility] SORTER Pulse 83 06/09/2024 8:18 PM [facility]MOND SORTER Temperature 36.9 C (98.4 F) 06/09/2024 8:18 PM [facility] S[facility]TER Respiratory Rate 17 06/09/2024 8:18 PM [facility] S[facility] Oxygen Saturation 94% 06/09/2024 12:25 PM [facility] S[facility]TER Inhaled Oxygen Concentration 21% 06/09/2024 1 2:25 PM [facility] S[facility]TER Weight 77.1 kg (170 lb) 06/08/2024 10:27 PM [facility] S[facility] Height 175.3 cm (5' 9 ) 06/08/2024 10:27 PM [facility] S[facility] Body Mass Index 25.1 06/08/2024 10:27 PM [facility]MOND SORTER Functional Status Functional Status Response Date of Assess ment Is person deaf or have serious hearing difficult y? No 06/08/2024 Is person blind or have serious difficulty seein g? No 06/08/2024 Does person have serious dif ficulty walking/climbing stairs? Yes 06/08/2024 Does person have difficulty dressing/bathing? Ye s 06/08/2024 Does person have difficulty doing errands alone? Yes 06/08/2024 Cognitive Status Response Date of Assessm ent Does person have difficulty concentrating/remembering/making decisions? Yes 06/08/2024 Plan of Treatment Upcoming Encounters Date Type Department Care Team (Late st Contact Info) Description 12/05/2024 1:00 PM CDT Office Visit [facility] - Neurology [address] [place] [address] Sean Raymundo, DO [address] [facility] [address] [place] [id number] Procedures Procedure Name Priority Date/Time Associated Diagnosis Comments CBC W/O DIFFERENTIAL AM Draw 06/09/2024 1:20 AM [facility] GLUCOSE - POINT OF CARE Routine 06/08/2024 6:22 PM [facility] GLUCOSE - POINT OF CARE Routine 06/08/2024 1:12 PM [facility] PHOSPHORUS BLOOD STAT 06/08/2024 4:11 AM [facility] MAGNESIUM BLOOD STAT 06/08/2024 4:11 AM [facility] S[facility] LIPID PROFILE STAT 06/08/2024 4:11 AM [facility] CBC W/O DIFFERENTIAL STAT 06/08/2024 4:11 AM [facility] BASIC METABOLIC PANEL (CALCIUM TOTAL) STAT 06/08/2024 4:11 AM [facility]MOND SORTER PT-INR SL[facility] STAT 06/08/2024 4:11 AM [facility] S[facility] URINALYSIS REFLEX MICROSCOPIC REFLEX CULTURE STAT 06/07/2024 10:24 PM [facility] S[facility] LIPASE BLOOD STAT 06/07/2024 8:01 PM [facility] COMPREHENSIVE METABOLIC PANEL STAT 06/07/2024 8:01 PM [facility] S[facility] CBC W AUTO DIFFERENTIAL STAT 06/07/2024 8:01 PM [facility] URINALYSIS REFLEX MICROSCOPIC REFLEX CULTURE STAT 05/15/2024 6:[address] CHEST ABDOMEN PELVIS W CONT STAT 05/15/2024 2:44 PM [facility] S[facility]TER Abdominal pain, generalized CBC W AUTO DIFFERENTIAL STAT 05/15/2024 12:40 PM [facility] S[facility] COMPREHENSIVE METABOLIC PANEL STAT 05/15/2024 12:40 PM [facility] MAGNESIUM BLOOD STAT 05/15/2024 12:40 PM [facility] PHOSPHORUS BLOOD STAT 05/15/2024 12:[address] CERVICAL SPINE WO CONTRAST STAT 04/30/2024 11:05 PM [facility]MON[facility] SORTER Ground-level fall CT HEAD WO CONTRAST STAT 04/30/2024 1 1:05 PM [facility] SORTER Ground-level fall XR CHEST 1VW PORTABLE STAT 04/30/2024 10:13 PM [facility] SORTER Ground-level fall XR ABDOMEN KUB STAT 04/21/2024 5:41 PM [facility]MON[facility] SORTER Attention to G-tube (HCC) HEPATITIS C AB SCREEN RFLX NAAT QUANT Routine 09/01/2022 2:05 AM CDT HIV-1 HIV-2 ANTIBODY + HIV P24 AG PANEL Routine 09/01/2022 2:05 AM CDT from Last 3 Months or Most Recently Relevant to Health Maintenance Results * (ABNORMAL) CBC W/O DIFFERENTIAL (06/09/2024 1:20 AM [facility]MON[facility] SORTER) Only the most recent of2 resultswithin the time period is included. WBC 8.1 4.0 - 10.7 x10E9/L 06/09/2024 1:59 AM [facility] S[facility] LABORATORY [facility] RBC Count 4.64 4.30 - 5.80 x10E12/L 06/09/2024 1:59 AM [facility]MON[facility] SOR[facility] Hemoglobin 15.0 13.3 - 17.5 g/dL 06/09/2024 1:59 AM [facility] Hematocrit 45.6 38.7 - 51.1 % 06/09/2024 1:59 AM [facility] MCV 98.3(H) 80.0 - 98.0 fL 06/09/2024 1:59 AM [facility] MCH 32.3 26.7 - 33.6 pg 06/09/2024 1:59 AM [facility] MCHC 32.9 31.7 - 36.3 g/dL 06/09/2024 1:59 AM [facility] RDW-CV 13.3 11.3 - 14.8 % 06/09/2024 1:59 AM [facility] Platelet Count 105(L) 150 - 420 x10E9/L 06/09/2024 1:59 AM [facility] Comment:Platelets clumped on slide but appears decreased. Recommend repeat with a sodium citrate blue top tube. MPV 06/09/2024 1:59 AM [facility] Comment:Unable to report Blood BLOOD SPECIMEN / Unknown Lab Venipuncture / Unknown 06/09/2024 1:20 AM [facility] S[facility]TER 06/09/2024 1:23 AM [facility] SOR[facility] Lilliam HUITRON LAB - HEMATOLOGY ORDERABLES [facility] [address] [place] [address], [facility] [phone] * GLUCOSE - POINT OF CARE (06/08/2024 6:22 PM ALMOND SORTER) Only the most recent of2 resultswithin the time period is included. Glucose WB/POC 89 70 - 99 mg/dL 06/08/2024 6:23 PM [facility] Specimen Type Cap Fingerstick 2024 6:23 PM [facility] Blood BLOOD SPECIMEN / Unknown 06/08/2024 6:22 PM [facility] SORTER 06/08/2024 6:23 PM [facility] S[facility] Myles Medrano MD LAB - POINT OF CARE ORDERABLES [facility] [address] [place] [address], [facility] [phone] * PT-INR [facility] (06/08/2024 4:11 AM [facility]) Pathologist [facility] PT 14.1 12.1 - 14.8 Seconds 06/08/2024 4:46 AM [facility] INR 1.1 See Comment 06/08/2024 4:46 AM [facility] Comment:The suggested therap eutic range for standard coumadin (warfarin) therapy is an INR of 2.0-3.0. For high-risk patients (Mechanical Mitral Valve Prosthesis, etc.), the suggested prophylactic therapeutic range is an INR of 2.5-3.5. Blood BLOOD SPECIMEN / Unknown Venipuncture / Unknown 06/08/2024 4:11 AM [facility]MON[facility] SORTER 06/08/2024 4:18 AM [facility] Elizabeth Hernandez MD LAB - COAGULATION OR DERABLES [facility] [address] [place] [address], [facility] [phone] * (ABNORMAL) BASIC METABOLIC PANEL (CALCIUM TOTAL) (06/08/2024 4:11 AM [facility]) Pathologist [facility] BUN 14 7 - 26 mg/dL 06/08/2024 4:58 AM [facility] Creatinine 0.57(L) 0.71 - 1.16 mg/dL 06/08/2024 4:58 AM [facility] Sodium 140 136 - 145 mmol/L 06/08/2024 4:58 AM [facility] Potassium 3.9 3.5 - 4.5 mmol/L 06/08/2024 4:58 AM [facility] Chloride 108(H) 98 - 107 mmol/L 06/08/2024 4:58 AM [facility] CO2 27 22 - 29 mmol/L 06/08/2024 4:58 AM [facility] Glucose 105(H) 70 - 99 mg/dL 06/08/2024 4:58 AM [facility] Calcium 9.3 8.4 - 10.2 mg/dL 06/08/2024 4:58 AM [facility] Anion Gap 5(L) 6 - 16 06/08/2024 4:58 AM [facility] BUN/Creatinine Ratio 25(H) 7 - 23 06/08/2024 4:58 AM [facility] Osmolality Calculated 291 275 - 295 mOsm/kg 06/08/2024 4:58 AM [facility] eGFR by CKD-EPI >90 >=90 mL/min/1.7 3 m2 06/08/2024 4:58 AM [facility] Blood BLOOD SPECIMEN / Unknown Venipuncture / Unknown 06/08/2024 4:11 AM [facility] SORTER 06/08/2024 4:18 AM [facility] ID Watchdog LAB - CHEMISTRY ORDERABLES Performing Organization Address City/[facility]/ZIP Co de Phone Number [address] [address], [facility] [phone] * PHOSPHORUS BLOOD (06/08/2024 4:11 AM [facility]MOND SORTER) Only the most recent of2 resultswithin the time period is included. Phosphorus 3.0 2.8 - 5.1 mg/dL 06/08/2024 4:49 AM [facility] Blood BLOOD SPECIMEN / Unknown Venipuncture / Unknown 06/08/2024 4:11 AM [facility] SORTER 06/08/2024 4:18 AM [facility] SOR[facility] [employer] LAB - CHEMISTRY ORDERABLES [address] [address], [facility] [phone] * MAGNESIUM BLOOD (06/08/2024 4:11 AM [facility] SORTER) Only the most recent of2 resultswithin the time period is included. Magnesium 1.9 1.6 - 2.6 mg/dL 06/08/2024 4:58 AM [facility] Blood BLOOD SPECIMEN / Unknown Venipuncture / Unknown 06/08/2024 4:11 AM [facility] S[facility]TER 06/08/2024 4:18 AM [facility] SORTER Lilliam Isaacs [facility] LAB - CHEMISTRY ORDERABLES Performing Organization Address City/[facility]/ZIP Co de Phone Number [address] [address], [facility] [phone] * (ABNORMAL) LIPID PROFILE (06/08/2024 4:11 AM ALMON[facility] SORTER) Cholesterol Total 136 <200 mg/dL 06/08/2024 4:49 AM [facility] HDL 35(L) >40 mg/dL 06/08/2024 4:49 AM [facility] Comment: ATP III Classification of HDL Cholesterol: <40 mg/dL: Considered a major risk factor. >60 mg/dL: Considered a negative risk factor. LDL Calculated 88 <100 mg/dL 06/08/2024 4:49 AM [facility] Comment: ATP III Classification of LDL Cholesterol: <100 mg/dL: Optimal 100 - 129 mg/dL: Near Optimal/Above Optimal 130 - 159 mg/dL: Borderline High 160 - 189 mg/dL: High >190 mg/dL: Very High Triglycerides 65 <150 mg/dL 06/08/2024 4:49 AM [facility] Comment: ATP III Classification of Triglycerides: <150 mg/dL: Normal 150 - 199 mg/dL: Borderline High 200 - 400 mg/dL: High >500 mg/dL: Very High Blood BLOOD SPECIMEN / Unknown Venipuncture / Unknown 06/08/2024 4:11 AM [facility] SORTER 06/08/2024 4:18 AM [facility] SOR[facility] Conradkatarina Isaacs [facility] LAB - CHEMISTRY ORDERABLES [address] [address], [facility] [phone] * (ABNORMAL) URINALYSIS REFLEX MICROSCOPIC REFLEX CULTURE (06/07/2024 10:24 PM [facility]MON[facility] SORTER) Only the most recent of2 resultswithin the time period is included. Color UA Yellow Straw, Yellow 06/07/2024 11:05 PM [facility] Clarity UA Clear Clear 06/07/2024 11:05 PM [facility] Specific [place] UA >1.060(H) 1.005 - 1.030 06/07/2024 11:05 PM [facility] pH UA 7.0 5.0 - 8.0 pH 06/07/2024 11:05 PM [facility] Protein UA Negative Negative 06/07/2024 11:05 PM [facility] Glucose UA Negative Negative 06/07/2024 11:05 PM [facility] Ketone UA 1+(A) Negative 06/07/2024 11:05 PM [facility] Bilirubin UA Negative Negative 06/07/2024 11:05 PM [facility] Blood UA Negative Negative 06/07/2024 11:05 PM [facility] Nitrite UA Negative Negative 06/07/2024 11:05 PM [facility] Leukocyte Esterase Negative Negative 06/07/2024 11:05 PM [facility] Urobilinogen UA 2.0(A) Negative mg/dL 06/07/2024 11:05 PM [facility] Comment UA Microscopic not indicated. 06/07/2024 11:05 PM [facility] Urine URINE SPECIMEN OBTAINED BY CLEAN CATCH PROCEDURE / Unknown Collection / Unknown 06/07/2024 10:24 PM [facility] 06/07/2024 10:27 PM [facility] - 06/07/2024 11:05 PM [facility] Elizabeth Hernandez MD LAB - URINALYSIS ORD ERABLES [facility] [address] [place] [address], [facility] [phone] * (ABNORMAL) CBC W AUTO DIFFERENTIAL (06/07/2024 8:01 PM [facility] SORTER) Only the most recent of2 resultswithin the time period is included. WBC 9.2 4.0 - 10.7 x10E9/L 06/07/2024 8:17 PM [facility] RBC Count 4.45 4.30 - 5.80 x10E12/L 06/07/2024 8:17 PM [facility] Hemoglobin 14.4 13.3 - 17.5 g/dL 06/07/2024 8:17 PM [facility] Hematocrit 42.4 38.7 - 51.1 % 06/07/2024 8:17 PM [facility] MCV 95.3 80.0 - 98.0 fL 06/07/2024 8:17 PM [facility] MCH 32.4 26.7 - 33.6 pg 06/07/2024 8:17 PM [facility] MCHC 34.0 31.7 - 36.3 g/dL 06/07/2024 8:17 PM [facility] RDW-CV 13.5 11.3 - 14.8 % 06/07/2024 8:17 PM [facility] Platelet Count 184 150 - 420 x10E9/L 06/07/2024 8:17 PM [facility] MPV 13.0(H) 7.8 - 11.4 fL 06/07/2024 8:17 PM [facility] Neutrophil % 69.2 41.0 - 74.0 % 06/07/2024 8:17 PM [facility] Lymphocyte % 20.6 17.0 - 47.0 % 06/07/2024 8:17 PM [facility] Monocyte % 7.6 3.0 - 11.0 % 06/07/2024 8:17 PM [facility] Eosinophil % 2.2 0.0 - 7.0 % 06/07/2024 8:17 PM [facility] Basophil % 0.2 0.0 - 1.6 % 06/07/2024 8:17 PM [facility] Immature Granulocytes % 0.2 0.0 - 1.0 % 06/07/2024 8:17 PM [facility] Neutrophil Absolute 6.40 1.60 - 7.50 x10E9/L 06/07/2024 8:17 PM [facility] Lymphocyte Absolute 1.90 1.00 - 4.40 x10E9/L 06/07/2024 8:17 PM [facility] Monocyte Absolute 0.70 0.15 - 1.00 x10E9/L 06/07/2024 8:17 PM [facility] Eosinophil Absolute 0.20 0.00 - 0.60 x10E9/L 06/07/2024 8:17 PM [facility] Basophil Absolute 0.02 0.00 - 0.13 x10E9/L 06/07/2024 8:17 PM [facility] Blood BLOOD SPECIMEN / Unknown Venipuncture / Unknown 06/07/2024 8:01 PM [facility] 06/07/2024 8:07 PM [facility] Elizabeth Hernandez MD LAB - HEMATOLOGY ORD ERABLES [facility] [address] [place] [address], [facility] [phone] * (ABNORMAL) COMPREHENSIVE METABOLIC PANEL (06/07/2024 8:01 PM [facility]) Only the most recent of2 resultswithin the time period is included. BUN 15 7 - 26 mg/dL 06/07/2024 8:36 PM [facility] Creatinine 0.62(L) 0.71 - 1.16 mg/dL 06/07/2024 8:36 PM [facility] Sodium 140 136 - 145 mmol/L 06/07/2024 8:36 PM [facility] Potassium 4.8(H) 3.5 - 4.5 mmol/L 06/07/2024 8:36 PM [facility] Chloride 106 98 - 107 mmol/L 06/07/2024 8:36 PM [facility] CO2 26 22 - 29 mmol/L 06/07/2024 8:36 PM [facility] Glucose 108(H) 70 - 99 mg/dL 06/07/2024 8:36 PM [facility] Calcium 9.5 8.4 - 10.2 mg/dL 06/07/2024 8:36 PM [facility] Protein Total 7.5 6.0 - 8.3 g/dL 06/07/2024 8:36 PM [facility] Albumin 3.7 3.4 - 5.0 g/dL 06/07/2024 8:36 PM [facility] Bilirubin Total 0.6 0.2 - 1.2 mg/dL 06/07/2024 8:36 PM [facility] Alkaline Phosphatase 90 40 - 150 U/L 06/07/2024 8:36 PM [facility] ALT 19 5 - 55 U/L 06/07/2024 8:36 PM [facility] AST 27 5 - 34 U/L 06/07/2024 8:36 PM [facility] Anion Gap 8 6 - 16 06/07/2024 8:36 PM [facility] BUN/Creatinine Ratio 24(H) 7 - 23 06/07/2024 8:36 PM [facility] Osmolality Calculated 291 275 - 295 mOsm/kg 06/07/2024 8:36 PM [facility] Albumin/Globulin Ratio 1.0(L) 1.1 - 2.3 06/07/2024 8:36 PM [facility] eGFR by CKD-EPI >90 >=90 mL/min/1.7 3 m2 06/07/2024 8:36 PM [facility] Blood BLOOD SPECIMEN / Unknown Venipuncture / Unknown 06/07/2024 8:01 PM [facility] 06/07/2024 8:07 PM [facility] Elizabeth Hernandez MD LAB - CHEMISTRY ORDByron MEDEROS Performing Organization Address City/[facility]/ZIP Co de Phone Number [address] [address], [facility] [phone] * LIPASE BLOOD (06/07/2024 8:01 PM [facility]) Lipase 14 8 - 78 U/L 06/07/2024 8:36 PM [facility] Blood BLOOD SPECIMEN / Unknown Venipuncture / Unknown 06/07/2024 8:01 PM [facility] 06/07/2024 8:07 PM [facility] Narrative [facility] - 06/07/2024 8:36 PM [facility] Lipase results from the Known Alinity analyzer may not be comparable with other methodologies. Elizabeth Hernandez MD LAB - CHEMISTRY MARSHAL MEDEROS [address] [place] [address], [facility] [phone] * CT Chest Abdomen Pelvis W Cont (05/15/2024 2:44 PM [facility]) Anatomical Region Laterality Modality Chest, Abdomen, Pelvis Computed Tomography 05/15/2024 3:06 PM [facility] Impressions 05/15/2024 4:01 PM [facility] Impression 1. Debris noted in the right mainstem bronchus and the bilateral lower lobe peribronchial wall thickening suggestive of aspiration. 2. Centrilobular emphysematous disease of the lungs. 3. Bilateral nonobstructive nephrolithiasis. 4. Colonic diverticulosis without evidence of diverticulitis. 5. Prostatomegaly. Recommend correlation with PSA. Report dictated by Flavio Stover MD(residential program director). I, John Graham MD have personally reviewed and interpreted this examination/study. > Interpreting Provider: John Graham MD on 05/15/2024 4:01 PM Narrative 05/15/2024 4:01 PM [facility] PROCEDURE: CT CHEST ABDOMEN PELVIS W CONT, DATE/TIME OF EXAM: 05/15/2024 2:44 PM, LOCATION [facility] INDICATION: R10.84: Abdominal pain, generalized ADDITIONAL [...] CONT, DATE/TIME OF EXAM:05/15/2024 2:44 PM, LOCATION [facility] INDICATION: R10.84: Abdominal pain, generalized ADDITIONAL [...] PSA. Report dictated by Flavio Stover MD(residential program director). I, John Graham MD have personally reviewed and interpreted this examination/study. > Interpreting Provider: John Graham MD on 05/15/2024 4:01 PM Caio Elder MD CT ORDERABLES * CT CERVICAL SPINE WO CONTRAST (04/30/2024 11:05 PM [facility]) Anatomical Region Laterality Modality Spine Computed Tomogra phy 04/30/2024 11:1 6 PM [facility] Impressions 04/30/2024 11:34 PM [facility] IMPRESSION: 1. No acute intracranial hemorrhage or [...] 04/30/2024 11:34 PM Narrative 04/30/2024 11:34 PM [facility] PROCEDURE: CT HEAD WO CONTRAST, CT CERVICAL [...] CT HEAD WO CONTRAST (04/30/2024 11:05 PM [facility]) Anatomical Region Laterality Modality Head Computed Tomogra phy 04/30/2024 11:1 6 PM [facility] Impressions 04/30/2024 11:34 PM [facility] IMPRESSION: 1. No acute intracranial hemorrhage or [...] 04/30/2024 11:34 PM Narrative 04/30/2024 11:34 PM [facility] PROCEDURE: CT HEAD WO CONTRAST, CT CERVICAL [...] XR Chest 1Vw Portable (04/30/2024 10:13 PM [facility]) Anatomical Region Laterality Modality Chest Digital Radiogra phy 04/30/2024 10:1 8 PM [facility] Narrative 05/01/2024 10:01 AM [facility] PROCEDURE: XR CHEST 1VW PORTABLE, DATE/TIME OF EXAM: 04/30/2024 10:13 PM, LOCATION [facility] INDICATION: W18.30XA: Ground-level fall ADDITIONAL CLINICAL [...] PORTABLE, DATE/TIME OF EXAM: 04/30/2024 10:13PM, LOCATION [facility] INDICATION: W18.30XA: Ground-level fall ADDITIONAL CLINICAL [...] * XR Abdomen Kub (04/21/2024 5:41 PM [facility]) Anatomical Region Laterality Modality Abdomen Digital Radiogra phy 04/21/2024 5:50 PM [facility] Impressions 04/21/2024 6:02 PM [facility] IMPRESSION: 1.Nonobstructive bowel gas pattern. 2.G-tube in place. No extraluminal extravasation of contrast Report dictated by Virgil Clark MD I, Nj Escobar MD have personally reviewed and interpreted this examination/study. > Interpreting Provider: Nj Escobar MD on 04/21/2024 6:02 PM Narrative 04/21/2024 6:02 PM [facility] PROCEDURE: XR ABDOMEN KUB, DATE/TIME OF EXAM: 04/21/2024 5:41 PM, LOCATION [facility] INDICATION: Z43.1: Attention to G-tube (HCC) [...] DATE/TIME OF EXAM: 04/21/2024 5:41 PM, LOCATION [facility] INDICATION: Z43.1: Attention to G-tube (HCC) [...] phan Non-reac tive 09/01/2022 3:09 AM CDT [facility] Comment:Hepatitis C Antibody screen indicates [...] - CHEMISTRY MARSHAL MEDEROS Performing Organization Address City/[facility]/ZIP Co de Phone Number [facility] [address] [place] [address], [facility] [phone] * HIV-1 HIV-2 ANTIBODY + HIV P24 AG PANEL (09/01/2022 2:05 AM CDT) HIV Antigen/Antibod y 1 & 2 Non-reacti ve Non-react phan 09/01/2022 3:09 AM CDT [facility] LABORATORY [facility] Comment:No Laboratory eviden ce of HIV infection. 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
--- OUTSIDE RECORDS SUMMARY | 2024-07-13 22:59 | XMS_ITS | Referral Summary ---
Author Organization [facility] Office Center Address [address] [place] [address] Care Team Providers Care Detail Manager Name Role Phone Marielena Smallwood MD Primary Care Provider Encounters Date Type Department Care Team Description 07/08/2024 7:52 PM PRODUCT DEVELOPMENT CHEMIST - 07/09/2024 7:48 AM PRODUCT DEVELOPMENT CHEMIST Emergency [facility] Emergency Department [address] [place] [id number] Tri Martinez MD Thomas, Jenna Marie, MD Tracheostomy complication, unspecified complication type (HCC) (Primary Dx); Balanitis Discharge Disposition: Discharge to home or self care 06/12/2024 10:26 AM PRODUCT DEVELOPMENT CHEMIST - 06/28/2024 5:25 PM PRODUCT DEVELOPMENT CHEMIST Hospital Encounter [address] [phone] Shakila Jung MD Choi, Cheuk Ho Jeffrey, MD Nelson, MD Juliane Osullivan, Hermes Ansari Jr., MD Felix, MD Jeff De León, MD Annette Moraes Maria, MD Quinley, Kami Aparicio MD Abdominal pain (Primary Dx); Distended abdomen; Vomiting, unspecified vomiting type, unspecified whether nausea present Discharge Disposition: Discharge to SNF from Last 3 Months Medications aspirin 81 mg chewable tablet Administer per tube 1 tablet (81 mg total) daily 06/29/19 25 Active atorvastatin (LIPITOR) 40 mg tablet Administer per tube 1 tablet (40 mg total) nightly 06/28/19 25 Active levETIRAcetam (KEPPRA) 100 mg/mL solution Administer per tube 17.5 mL (1,750 mg total) 2 (two) times a day 06/28/19 Active lacosamide (VIMPAT) 10 mg/mL solution Administer 20 mL (200 mg total) per feeding tube 2 (two) times a day 06/28/19 Active amLODIPine (NORVASC) 10 mg tablet Administer per tube 1 tablet (10 mg total) daily 06/29/19 Active apixaban (ELIQUIS) 5 mg tabletIndications: Venous Thrombosis Administer 1 tablet (5 mg total) per feeding tube every 12 (twelve) hours 06/28/19 Active cloBAZam (ONFI) 2.5 mg/mL suspensionIndicati ons:Laci-Gastaut Syndrome Treatment Adjunct Administer 4 mL (10 mg total) per feeding tube nightly 06/28/19 Active glycopyrrolate (ROBINUL) 1 mg tablet Administer per tube 1 tablet (1 mg total) 2 (two) times a day 06/28/19 25 Active insulin lispro (HumaLOG, ADMELOG) 100 unit/mL vial for injection Inject 1-5 units under the skin 3 (three) times a day with meals. Blood glucose mg/dL 150-199: 1 unit, 200-249: 2 units, 250-299: 3 units, 300-349: 4 units, 350 or greater: 5 units. Notify provider for blood glucose greater than 299 mg/dL. Refer to After Visit Summary for Sliding Scale Insulin Instructions. 06/28/19 25 Active ipratropium-albute roL (DUO-NEB) 0.5-2.5 mg/3 mL nebulizer solutionIndication s:SOB Take 3 mL by nebulization every 6 (six) hours 06/28/19 Active metoprolol tartrate (LOPRESSOR) 25 mg immediate release tablet Administer per tube 1 tablet (25 mg total) 2 (two) times a day 06/28/19 25 026 Active ondansetron ODT (ZOFRAN-ODT) 4 mg disintegrating tabletIndications: Nausea and Vomiting Administer per tube 1 tablet (4 mg total) every 6 (six) hours as needed for nausea or vomiting 06/28/19 25 Active polyethylene glycol (MIRALAX) 17 gram packetIndications: constipation Administer 1 packet (17 g total) per feeding tube daily as needed for constipation 06/28/19 25 Active potassium, sodium phosphates (PHOS-NAK) 280-160-250 mg powder in packet Take 1 packet by mouth 2 (two) times a day 06/28/19 25 Active senna 1.76 mg/mL syrup Administer 5 mL (8.8 mg total) per feeding tube 2 (two) times a day 06/28/19 25 Active simethicone (MYLICON) drops 40 mg/0.6 mL Administer per tube 1.2 mL (80 mg total) 4 (four) times a day 06/28/19 25 Active valproate (DEPAKENE) syrup 250 mg/5 mL Administer per tube 10 mL (500 mg total) 3 (three) times a day 06/28/19 25 026 Active famotidine (PEPCID) 20 mg tablet Take 1 tablet (20 mg total) by mouth 2 (two) times a day 06/28/19 25 026 Active miconazole 2 % cream Apply topically 2 (two) times a day Clean penis and apply miconazole twice daily. 141 g 07/09/19 25 Active phenazopyridine (PYRIDIUM) 200 mg tablet Take 1 tablet (200 mg total) by mouth 3 (three) times a day as needed for bladder spasms 10 tablet 07/09/19 25 Active aspirin 81 mg enteric coated tablet Take 1 tablet by mouth daily 08/23/19 21 025 Discontin ued(Stop Taking at Discharge ) multivit with min-folic acid (Adult One Daily Multivitamin) 0.4 mg tablet Take 1 tablet by mouth daily 08/23/19 21 025 Discontin ued(Stop Taking at Discharge ) atorvastatin (LIPITOR) 40 mg tablet Take 1 tablet by mouth daily 08/22/19 21 025 Discontin ued(Stop Taking at Discharge ) cyanocobalamin, vitamin B-12, 1,000 mcg capsule Take 1 mg by mouth daily 10/27/19 19 025 Discontin ued(Stop Taking at Discharge ) folic acid (FOLVITE) 1 mg tablet Take 1 mg by mouth daily 10/27/19 19 025 Discontin ued(Stop Taking at Discharge ) lacosamide (VIMPAT) 200 mg tablet Take 200 mg by mouth 2 (two) times a day 08/22/19 21 025 Discontin ued(Stop Taking at Discharge ) levETIRAcetam (Keppra) 1,000 mg tablet Take 2 tablets by mouth every 12 hours 08/23/19 025 Discontin ued(Stop Taking at Discharge ) tamsulosin (FLOMAX) 0.4 mg extended release capsule Take 0.4 mg by mouth daily 12/13/19 19 025 Discontin ued(Stop Taking at Discharge ) cholecalciferol, vitamin D3, 1,000 unit tablet,chewable Take 1,000 Units by mouth daily 025 Discontin ued(Stop Taking at Discharge ) ibuprofen (ADVIL,MOTRIN) 600 mg tablet Take 600 mg by mouth every 8 (eight) hours as needed for pain 025 Discontin ued(Stop Taking at Discharge ) thiamine (VITAMIN B1) 100 mg tablet Take 100 mg by mouth daily 025 Discontin ued(Stop Taking at Discharge ) divalproex DR (DEPAKOTE) 500 mg EC tablet Take 1 tablet (500 mg total) by mouth 2 (two) times a day 60 tablet 11 12/14/19 21 025 Discontin ued(Stop Taking at Discharge ) clonazePAM (KlonoPIN) 0.25 mg disintegrating tabletIndications: Myoclonic Epilepsy Take 1 tablet (0.25 mg total) by mouth every 8 (eight) hours 90 tablet 12/14/19 21 025 Discontin ued(Stop Taking at Discharge ) Active Problems Problem Noted Date Diagnosed Date Type 2 diabetes mellitus 06/28/2024 Assessment & Plan (06/28/2024 11:42 AM PRODUCT DEVELOPMENT CHEMIST): Now back on full TF's sugars running mildly high. Monitor with q4 accuchecks and SSI. Hypophosphatemia 06/27/2024 Assessment & Plan (06/28/2024 11:44 AM PRODUCT DEVELOPMENT CHEMIST): <0.7 ? 2/2 refeeding syndrome. Started on neutraphos 2pkg QID 06/26. Still Phos<0.7 06/27. Tx with IV NaPhos 30mmoles and cont per tube replacement and monitor closely. -06/28: Phos=3.3, reduce nuetraphos to 1 PKG BID and monitor History of DVT (deep vein thrombosis) 06/26/2024 Assessment & Plan (06/26/2024 1:32 PM PRODUCT DEVELOPMENT CHEMIST): -On anticoagulation with Eliquis 5 mg po BID for hx of DVT -per chart review hx of Left Subclavian vein DVT diagnosed 08/01/23 H/O: GI bleed 06/25/2024 Assessment & Plan (06/26/2024 1:32 PM PRODUCT DEVELOPMENT CHEMIST): - [facility] ( [facility]-09-24) with coffee-ground emesis noted at SNF - was seen by GI consult: no evidence of active GIB found on bedside Gtube aspiration, BUN 14, BUN/Cr < 30 Hgb 13.4, Plt 166. Previous EGD in 2021 showed erosive gastropathy and duodenopathy. Large diverticulum found in oropharynx. Given no evidence of gi bleed, pt was scheduled for outpatient endoscopy at [facility] in June 2024 with recs for PPI b.i.d. for 8 weeks, pantoprazole pack 40 mg BID and continued on home anticoagulation with eliquis It appears he was not started on PPI at SNF where still getting pepcid per SNF order report summary -cont PPI BID and will prescribe at discharge. Patient to f/up with GI at [facility] as peviously arranged Tracheostomy in place ([facility]) 06/25/2024 Assessment & Plan (06/26/2024 1:36 PM PRODUCT DEVELOPMENT CHEMIST): Tracheostomy dependence, has a Shiley #4 cuffed. Pt followed at [facility], per notes trach in place for pulmonary toilet due to his copious secretions and ongoing aspiration of his secretions. -needing frequent suctioning -sats stable on 28% FIO2 by HHTC -Was getting VEST at [facility] Low grade fever 06/20/2024 Assessment & Plan (06/26/2024 1:34 PM PRODUCT DEVELOPMENT CHEMIST): Low-grade fever and tachycardia, softer BP after episode of aspiration of tube feeds on 06-19, increased trach secretions Sent infectious w/up and started empiric cefepime /vancomycin (06-19-06/26) Blood cx NGTD, UA did not reflex to micro, Chest Xray bilat atelectasis trach cx with MRSA Vanc trough level 16.8 on 06-21 and 15.2 on 06-23 Plan to complete 7 days antibiotics thru 06/26 and then stop On tube feeding diet 06/17/2024 Assessment & Plan (06/28/2024 11:43 AM PRODUCT DEVELOPMENT CHEMIST): -patient at admission with a G tube, was getting continous tube feedings at [facility] and not tolerating, -was changed to bolus feedings this admission on 06-15 -aspiration of tube feedings 06-19 : hold tube feedings,start IV fluids KUB with mild dilated bowels, chest Xray no infiltrate , cbc no leukocytosis -reviewed records on Care Everywhere, pt with hx of dysphagia c/b chronic aspiration had PEG at [facility] 03/26/22, subsequently did not tolerate Gtube feeds, had abnormal Gastric emtying study and underwent G tube conversion to GJ at [facility] 12/14/22 (additional documented GJ tube procedures at [facility] most recent 09/09/23). Pt ' feeding tube fell off and pt had 18 [place] G tube placed at [facility] ED on 04/21/24 (records on care everywhere)and after that he has not tolerated well tube feedings per discussion with his sister Ms Hilliard,Adriane [phone] POA - consulted IR 06-20-24 for conversion of G tube to GJ tube : procedure postponed from 06-21 to 06-22 per IR due to emergency cases - clinical RD follow up appreciated, start tube feedings via J tube and advance slowly, monitor how pt tolerates Osmolite 1.5 Bruno; 55; J-port -GJ ; Started at 10 ml and advanced by 10 ml q6 hours until goal; 150; Water; Every 4 hours -Tolerating so far, advanced slowly to goal 06/25, adjust FWF per hydration status, 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 Phos repleted. Copious oral secretions 06/13/2024 Assessment & Plan (06/26/2024 1:29 PM PRODUCT DEVELOPMENT CHEMIST): Patient on chronic glycopyrrolate due to secretions, held at admission 07/01 to potential for constipation with plan to add back when he's had a bowel movements -resume on 06-19- hold on 06-20 due to somnolence. Suction PRN - restart glycopyrrolate 1mg BID 06/26 and monitor Abdominal pain 06/12/2024 Assessment & Plan (06/26/2024 1:23 PM PRODUCT DEVELOPMENT CHEMIST): -p/w abdominal distention from SNF to ED on 06-12 ,reported biliary emesis per [facility] (approximately 300 cc) , not associated fevers or change in bowel habits. Feeding tube placed to gravity drainage in ED H&P notes regular bowel movements. CT scan on 06-12 in ED with stool in the rectum and sigmoid. [place] likely constipation contributing to the patient's abdominal pain and possibly meds like glycopirrolate and decrease mobility among causes of constipation. -Received intensive bowel regimen with good response - tube feeds resumed 06/15-held due to mild colonic ileus -> slow improvement having bowel movements and passing gas , improved KUB 06-16 and resumed Tube feedings - TF changed on 06-18 to see if he can tolerate a more concentrated formula - aspiration of tube feedings 06-19. Patient with G tube in place, hold tube feedings, KUB with unchanged mild ileus - 06-20 small medium Bms, abd still distended, placed Gtube to gravity drainage. Monitor and replete lytes, repeat exams, repeat KUB 06-20 with improvement. Cont bowel regimen, monitor and replete lytes -improved, having BMs. Patient with hx of abnormal Gastric empting study and used to have GJ tube for feedings via J lumen as described below. Holding tube feeds till G tube is converted to GJ, IR consulted 06-20. -procedure done on 06-22 and can start tube feedings via J lumen immediately per IR -abdomen exam improved, having Bms, on miralax BID, PRN docusate BID, PRN dulcolax suppository Started continuous tube feeding through the jejunal port of G-J tube, advanced slowly to goal and tolerating well so far, having bowel movements PAD (peripheral artery disease) 06/12/2024 Assessment & Plan (06/26/2024 12:08 AM PRODUCT DEVELOPMENT CHEMIST): Complicated by left LE AKA. History of CVA (cerebrovascular accident) 2020 Assessment & Plan (06/26/2024 1:32 PM PRODUCT DEVELOPMENT CHEMIST): - hx of RT parietal CVA- hx of dementia Cont asa and statin Essential hypertension 12/11/2020 Assessment & Plan (06/26/2024 1:30 PM PRODUCT DEVELOPMENT CHEMIST): - on metoprolol and norvasc, held with soft BP 06-19 - resume metoprolol 06-21 -resume amlodipine 06-22 - Monitor Hyperlipidemia 12/11/2020 Assessment & Plan (06/12/2024 3:47 PM PRODUCT DEVELOPMENT CHEMIST): - Continue home statin Seizure 12/10/2020 Assessment & Plan (06/26/2024 1:36 PM PRODUCT DEVELOPMENT CHEMIST): History of seizure disorder secondary to traumatic brain injury. Currently on valproate, Vimpat, Keppra and Cobazam - Continue home medication, valproate level low at admit 48 on 06-12, 48 on 06-13, Valproic acid level 76 06-19 prior to dose, lacosamide level 1.4 on 06/12, 9.6 on 06-19 Followed by Neurology at [facility] Cognitive communication deficit 08/25/2020 Cerebrovascular accident 06/13/2019 Cerebral infarction due to u nspecified occlusion or stenosis of unspecified cerebral artery 05/25/2019 Hemiplegia and hemiparesis f ollowing cerebral infarction affecting right non-dominant side 05/25/2019 Alzheimer's disease with early onset 05/17/2019 Epilepsy, unspecified, not i ntractable, without status epilepticus 05/16/2019 Paroxysmal tachycardia, unspecified (CMS/HCC) Cerebrovascular accident (CV A) due to thrombosis of right posterior cerebral artery 02/20/2016 Overview (10/07/2021): Last Assessment & Plan: Patient has residual cognitive difficulties I think beyond with patient and her family have recognized in the past however as noted in adequate medication intake her side effects may be causing deterioration. 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 No 06/18/2024 Social Connection and Isolat ion Panel [NHANES] Answer Date Recorded In a typical week, how many times do you talk on the phone with family, friends, or neighbors? More than three times a week 06/18/2024 How often do you get togethe r with friends or relatives? More than three times a week 06/18/2024 How often do you attend chur ch or congregational services? Never 06/18/2024 Do you belong to any clubs o r organizations such as evangelical groups, unions, fraternal or athletic groups, or school groups? No 06/18/2024 How often do you attend meet ings of the clubs or organizations you belong to? Never 06/18/2024 Are you , , di vorced, , never , or living with a partner? Never 06/18/2024 AUDIT-C Answer Date Recorded Q1: How often do you have a drink containing alc ohol? Never 12/10/2020 Average Number of Drinks Not on file 021 Frequency of Binge Drinking Not on file 11/27 Overall Financial Resource Strain (CARDIA) Answe r Date Recorded How hard is it for you to pa y for the very basics like food, housing, medical care, and heating? Not hard at all 06/18/2024 PHQ-2 Answer Date Recorded PHQ-2 Total Score (If total score is 3 or more points, staff should administer the PHQ-9) 0 06/18/2024 Hunger Vital Sign Answer Date Recorded Within the past 12 months, y ou worried that your food would run out before you got the money to buy more. Never true 06/18/19 25 Within the past 12 months, t he food you bought just didn't last and you didn't have money to get more. Never true 06/18/2024 PRAPARE - Transportation Answer Date Re corded In the past 12 months, has l ack of transportation kept you from medical appointments or from getting medications? Yes 05/31 In the past 12 months, has l ack of transportation kept you from meetings, work, or from getting things needed for daily living? No 06/18/2024 Housing Stability Vital Sign Answer Vinay e Recorded In the last 12 months, was t here a time when you were not able to pay the mortgage or rent on time? No 06/18/2024 In the past 12 months, how m any times have you moved where you were living? 0 06/18/2024 At any time in the past 12 m [facility], were you homeless or living in a jail (including now)? No 06/18/2024 Personal Safety Answer Date Recorded Have you ever been in or are you currently in a harmful physical or emotional relationship or is someone making you feel afraid or unsafe? Denies 07/08/2024 Sex and Gender Information Value Date Recorded Sex Assigned at Not on file Legal Sex Male 6:11 AM PRODUCT DEVELOPMENT CHEMIST Gender Identity Not on file Sexual Orientation Not on file Last Filed Vital Signs Vital Sign Reading Time Taken Comments Blood Pressure 145/83 07/09/2024 6:00 AM PRODUCT DEVELOPMENT CHEMIST Pulse 91 07/09/2024 6:00 AM PRODUCT DEVELOPMENT CHEMIST Temperature 36.5 C (97.7 F) 07/09/2024 6:31 AM PRODUCT DEVELOPMENT CHEMIST Respiratory Rate 10 07/09/2024 6:00 AM PRODUCT DEVELOPMENT CHEMIST Oxygen Saturation 100% 07/09/2024 6:00 AM PRODUCT DEVELOPMENT CHEMIST Inhaled Oxygen Concentration - - Weight 79.8 kg (176 lb) 07/09/2024 2:16 AM PRODUCT DEVELOPMENT CHEMIST Height 182.9 cm (6') 07/09/2024 2:16 AM PRODUCT DEVELOPMENT CHEMIST Body Mass Index 23.87 07/09/2024 2:16 AM PRODUCT DEVELOPMENT CHEMIST Plan of Treatment Not on file Procedures Procedure Name Priority Date/Time Associated Diagnosis Comments POCT RAPID HIV ANTIBODY COMMUNITY SCREENING-ISSA ELIGIBLE STAT 07/09/2024 5:32 AM PRODUCT DEVELOPMENT CHEMIST SEPSIS LACTATE WITH REFLEX Timed 07/09/2024 4:33 AM PRODUCT DEVELOPMENT CHEMIST ED PERIPHERAL LINE INSERTION Routine 07/09/2024 1:18 AM PRODUCT DEVELOPMENT CHEMIST SEPSIS LACTATE WITH REFLEX Timed 07/09/2024 1:15 AM PRODUCT DEVELOPMENT CHEMIST RPR STAT 07/09/2024 1:15 AM PRODUCT DEVELOPMENT CHEMIST N. GONORRHOEAE/C. TRACHOMATIS AMPLIFICATION STAT 07/09/2024 1:02 AM PRODUCT DEVELOPMENT CHEMIST URINALYSIS AND REFLEX TO MICROSCOPIC AND CULTURE STAT 07/09/2024 1:02 AM PRODUCT DEVELOPMENT CHEMIST ED PERIPHERAL LINE INSERTION Routine 07/08/2024 10:11 [address]MI[address] CHEST ABDOMEN PELVIS W CONTRAST ED 07/08/2024 9:55 PM PRODUCT DEVELOPMENT CHEMIST EGFR STAT 07/08/2024 8:56 PM PRODUCT DEVELOPMENT CHEMIST DIFFERENTIAL AUTO STAT 07/08/2024 8:5 6 PM PRODUCT DEVELOPMENT CHEMIST SEPSIS LACTATE WITH REFLEX STAT 07/08/2024 8:56 PM PRODUCT DEVELOPMENT CHEMIST LIPASE STAT 07/08/2024 8:56 PM PRODUCT DEVELOPMENT CHEMIST COMPREHENSIVE METABOLIC PANEL STAT 07/08/2024 8:56 PM PRODUCT DEVELOPMENT CHEMIST CBC WITH AUTO DIFFERENTIAL STAT 07/08/2024 8:56 PM PRODUCT DEVELOPMENT CHEMIST RESPIRATORY PATHOGEN PANEL STAT 07/08/2024 8:56 PM PRODUCT DEVELOPMENT CHEMIST ECG 12-LEAD Routine 07/08/2024 8:28 PM PRODUCT DEVELOPMENT CHEMIST XR CHEST 1 VIEW ED 07/08/2024 8:18 PM PRODUCT DEVELOPMENT CHEMIST POCT GLUCOSE DEVICE Routine 06/28/2024 4 :24 PM PRODUCT DEVELOPMENT CHEMIST POCT GLUCOSE DEVICE Routine 06/28/2024 1 2:30 PM PRODUCT DEVELOPMENT CHEMIST POCT GLUCOSE DEVICE Routine 06/28/2024 7 :43 AM PRODUCT DEVELOPMENT CHEMIST POCT GLUCOSE DEVICE Routine 06/28/2024 4 :01 AM PRODUCT DEVELOPMENT CHEMIST POCT GLUCOSE DEVICE Routine 06/27/2024 1 1:28 PM PRODUCT DEVELOPMENT CHEMIST EGFR Routine 06/27/2024 9:30 PM PRODUCT DEVELOPMENT CHEMIST PHOSPHORUS Routine 06/27/2024 9:30 PM PRODUCT DEVELOPMENT CHEMIST MAGNESIUM Routine 06/27/2024 9:30 PM PRODUCT DEVELOPMENT CHEMIST BASIC METABOLIC PANEL Routine 06/27/2024 9:30 PM PRODUCT DEVELOPMENT CHEMIST POCT GLUCOSE DEVICE Routine 06/27/2024 8 :39 PM PRODUCT DEVELOPMENT CHEMIST POCT GLUCOSE DEVICE Routine 06/27/2024 5 :10 PM PRODUCT DEVELOPMENT CHEMIST POCT GLUCOSE DEVICE Routine 06/27/2024 4 :27 PM PRODUCT DEVELOPMENT CHEMIST POCT GLUCOSE DEVICE Routine 06/27/2024 1 :06 PM PRODUCT DEVELOPMENT CHEMIST POCT GLUCOSE DEVICE Routine 06/27/2024 9 :59 AM PRODUCT DEVELOPMENT CHEMIST EGFR Routine 06/26/2024 10:21 PM PRODUCT DEVELOPMENT CHEMIST DIFFERENTIAL AUTO Routine 06/26/2024 10: 21 PM PRODUCT DEVELOPMENT CHEMIST PHOSPHORUS Routine 06/26/2024 10:21 PM PRODUCT DEVELOPMENT CHEMIST MAGNESIUM Routine 06/26/2024 10:21 PM PRODUCT DEVELOPMENT CHEMIST CBC WITH AUTO DIFFERENTIAL Routine 06/26/2024 10:21 PM PRODUCT DEVELOPMENT CHEMIST BASIC METABOLIC PANEL Routine 06/26/2024 10:21 PM PRODUCT DEVELOPMENT CHEMIST HEPATITIS B SURFACE ANTIGEN Routine 06/26/2024 10:21 PM PRODUCT DEVELOPMENT CHEMIST PHOSPHORUS Routine 06/26/2024 3:21 PM PRODUCT DEVELOPMENT CHEMIST RPR Routine 06/26/2024 3:21 PM PRODUCT DEVELOPMENT CHEMIST HEPATITIS C ANTIBODY Routine 06/26/2024 3:21 PM PRODUCT DEVELOPMENT CHEMIST HIV 1/2 ANTIBODY PLUS P24 ANTIGEN Routine 06/26/2024 3:21 PM PRODUCT DEVELOPMENT CHEMIST EGFR Routine 06/26/2024 12:16 AM PRODUCT DEVELOPMENT CHEMIST PHOSPHORUS Routine 06/26/2024 12:16 AM PRODUCT DEVELOPMENT CHEMIST MAGNESIUM Routine 06/26/2024 12:16 AM PRODUCT DEVELOPMENT CHEMIST BASIC METABOLIC PANEL Routine 06/26/2024 12:16 AM PRODUCT DEVELOPMENT CHEMIST POCT GLUCOSE DEVICE Routine 06/23/2024 1 1:36 AM PRODUCT DEVELOPMENT CHEMIST CBC WITHOUT DIFFERENTIAL Timed 06/23/2024 9:07 AM PRODUCT DEVELOPMENT CHEMIST VANCOMYCIN LEVEL TROUGH Routine 06/23/2024 9:00 AM PRODUCT DEVELOPMENT CHEMIST EGFR Routine 06/23/2024 9:00 AM PRODUCT DEVELOPMENT CHEMIST MAGNESIUM Routine 06/23/2024 9:00 AM PRODUCT DEVELOPMENT CHEMIST PHOSPHORUS Routine 06/23/2024 9:00 AM PRODUCT DEVELOPMENT CHEMIST BASIC METABOLIC PANEL Routine 06/23/2024 9:00 AM PRODUCT DEVELOPMENT CHEMIST G TO GJ-TUBE REPLACEMENT IP Routine 06/22/2024 1:24 PM PRODUCT DEVELOPMENT CHEMIST C. DIFFICILE TESTING Routine 06/21/2024 11:11 AM PRODUCT DEVELOPMENT CHEMIST INFECTION PREVENTION VRE CULTURE Routine 06/21/2024 11:10 AM PRODUCT DEVELOPMENT CHEMIST VANCOMYCIN LEVEL TROUGH Timed 06/21/2024 7:16 AM PRODUCT DEVELOPMENT CHEMIST EGFR Routine 06/21/2024 5:03 AM PRODUCT DEVELOPMENT CHEMIST DIFFERENTIAL AUTO Routine 06/21/2024 5:0 3 AM PRODUCT DEVELOPMENT CHEMIST PHOSPHORUS Timed 06/21/2024 5:03 AM PRODUCT DEVELOPMENT CHEMIST MAGNESIUM Routine 06/21/2024 5:03 AM PRODUCT DEVELOPMENT CHEMIST COMPREHENSIVE METABOLIC PANEL Routine 06/21/2024 5:03 AM PRODUCT DEVELOPMENT CHEMIST CBC WITH AUTO DIFFERENTIAL Routine 06/21/2024 5:03 AM PRODUCT DEVELOPMENT CHEMIST MSSA/MRSA (STAPHYLOCOCCUS AUREUS) CULTURE Routine 06/20/2024 10:30 PM PRODUCT DEVELOPMENT CHEMIST XR ABDOMEN AP 1 VIEW IP Routine 06/20/2024 10:29 AM PRODUCT DEVELOPMENT CHEMIST URINALYSIS, MICROSCOPIC ONLY Routine 06/19/2024 9:34 PM PRODUCT DEVELOPMENT CHEMIST URINALYSIS AND REFLEX TO MICROSCOPIC AND CULTURE Routine 06/19/2024 9:34 PM PRODUCT DEVELOPMENT CHEMIST DIFFERENTIAL AUTO Routine 06/19/2024 9:2 8 PM PRODUCT DEVELOPMENT CHEMIST CBC WITH AUTO DIFFERENTIAL Routine 06/19/2024 9:28 PM PRODUCT DEVELOPMENT CHEMIST VALPROIC ACID LEVEL, TOTAL Timed 06/19/2024 9:28 PM PRODUCT DEVELOPMENT CHEMIST LACOSAMIDE Routine 06/19/2024 9:28 PM PRODUCT DEVELOPMENT CHEMIST RESPIRATORY PATHOGEN PANEL Routine 06/19/2024 9:10 PM PRODUCT DEVELOPMENT CHEMIST AEROBIC CULTURE AND GRAM STAIN Routine 06/19/2024 6:53 PM PRODUCT DEVELOPMENT CHEMIST XR CHEST 1 VIEW IP Routine 06/19/2024 6:47 PM PRODUCT DEVELOPMENT CHEMIST RESPIRATORY PATHOGEN PANEL Routine 06/19/2024 6:46 PM PRODUCT DEVELOPMENT CHEMIST XR ABDOMEN AP 1 VIEW IP Routine 06/19/2024 4:09 PM PRODUCT DEVELOPMENT CHEMIST XR CHEST 1 VIEW IP Routine 06/19/2024 4:08 PM PRODUCT DEVELOPMENT CHEMIST EGFR Timed 06/19/2024 2:47 PM PRODUCT DEVELOPMENT CHEMIST DIFFERENTIAL AUTO Timed 06/19/2024 2:4 7 PM PRODUCT DEVELOPMENT CHEMIST PHOSPHORUS Timed 06/19/2024 2:47 PM PRODUCT DEVELOPMENT CHEMIST MAGNESIUM Timed 06/19/2024 2:47 PM PRODUCT DEVELOPMENT CHEMIST COMPREHENSIVE METABOLIC PANEL Timed 06/19/2024 2:47 PM PRODUCT DEVELOPMENT CHEMIST CBC WITH AUTO DIFFERENTIAL Timed 06/19/2024 2:47 PM PRODUCT DEVELOPMENT CHEMIST POCT GLUCOSE DEVICE Routine 06/19/2024 2 :25 PM PRODUCT DEVELOPMENT CHEMIST XR ABDOMEN AP 1 VIEW IP Routine 06/16/2024 6:16 PM PRODUCT DEVELOPMENT CHEMIST EGFR Routine 06/16/2024 12:42 PM PRODUCT DEVELOPMENT CHEMIST DIFFERENTIAL AUTO Routine 06/16/2024 12: 42 PM PRODUCT DEVELOPMENT CHEMIST PHOSPHORUS Routine 06/16/2024 12:42 PM PRODUCT DEVELOPMENT CHEMIST MAGNESIUM Routine 06/16/2024 12:42 PM PRODUCT DEVELOPMENT CHEMIST COMPREHENSIVE METABOLIC PANEL Routine 06/16/2024 12:42 PM PRODUCT DEVELOPMENT CHEMIST CBC WITH AUTO DIFFERENTIAL Routine 06/16/2024 12:42 PM PRODUCT DEVELOPMENT CHEMIST XR ABDOMEN AP 1 VIEW ED Urgent/IP Urgent 06/15/2024 1:57 AM PRODUCT DEVELOPMENT CHEMIST EGFR Routine 06/13/2024 4:59 AM PRODUCT DEVELOPMENT CHEMIST DIFFERENTIAL AUTO Routine 06/13/2024 4:5 9 AM PRODUCT DEVELOPMENT CHEMIST VALPROIC ACID LEVEL, TOTAL Routine 06/13/2024 4:59 AM PRODUCT DEVELOPMENT CHEMIST CBC WITH AUTO DIFFERENTIAL Routine 06/13/2024 4:59 AM PRODUCT DEVELOPMENT CHEMIST PHOSPHORUS Routine 06/13/2024 4:59 AM PRODUCT DEVELOPMENT CHEMIST MAGNESIUM Routine 06/13/2024 4:59 AM PRODUCT DEVELOPMENT CHEMIST COMPREHENSIVE METABOLIC PANEL Routine 06/13/2024 4:59 AM PRODUCT DEVELOPMENT CHEMIST LACOSAMIDE Routine 06/13/2024 4:59 AM PRODUCT DEVELOPMENT CHEMIST BLOOD CULTURE Routine 06/13/2024 4:59 AM PRODUCT DEVELOPMENT CHEMIST TSH Routine 06/12/2024 3:51 PM PRODUCT DEVELOPMENT CHEMIST DIFFERENTIAL AUTO Routine 06/12/2024 3:3 0 PM PRODUCT DEVELOPMENT CHEMIST CBC WITH AUTO DIFFERENTIAL Routine 06/12/2024 3:30 PM PRODUCT DEVELOPMENT CHEMIST HEMOGLOBIN A1C Routine 06/12/2024 3:30 PM PRODUCT DEVELOPMENT CHEMIST TROPONIN I HIGH-SENSITIVITY 4-HOUR Timed 06/12/2024 3:27 PM PRODUCT DEVELOPMENT CHEMIST XR CHEST 1 VIEW ED 06/12/2024 2:47 PM PRODUCT DEVELOPMENT CHEMIST URINALYSIS AND REFLEX TO MICROSCOPIC AND CULTURE STAT 06/12/2024 2:38 PM PRODUCT DEVELOPMENT CHEMIST DIFFERENTIAL AUTO STAT 06/12/2024 2:2 3 PM PRODUCT DEVELOPMENT CHEMIST CBC WITH AUTO DIFFERENTIAL STAT 06/12/2024 2:23 PM PRODUCT DEVELOPMENT CHEMIST TROPONIN I HIGH-SENSITIVITY 2-HOUR Timed 06/12/2024 1:56 PM PRODUCT DEVELOPMENT CHEMIST CT ABDOMEN PELVIS W CONTRAST ED 06/12/2024 12:22 PM PRODUCT DEVELOPMENT CHEMIST ED PERIPHERAL LINE INSERTION Routine 06/12/2024 11:50 AM PRODUCT DEVELOPMENT CHEMIST INFLUENZA A/B, RSV, AND COVID-19 PCR Routine 06/12/2024 11:39 AM PRODUCT DEVELOPMENT CHEMIST POCT CREATININE - DEVICE Routine 06/12/2024 11:29 AM PRODUCT DEVELOPMENT CHEMIST EGFR STAT 06/12/2024 11:22 AM PRODUCT DEVELOPMENT CHEMIST DIFFERENTIAL AUTO STAT 06/12/2024 11: 22 AM PRODUCT DEVELOPMENT CHEMIST TROPONIN I HIGH-SENSITIVITY SERIES (BASELINE, 2HR, 4HR, 6HR) STAT 06/12/2024 11:22 AM PRODUCT DEVELOPMENT CHEMIST LIPASE STAT 06/12/2024 11:22 AM PRODUCT DEVELOPMENT CHEMIST CBC WITH AUTO DIFFERENTIAL STAT 06/12/2024 11:22 AM PRODUCT DEVELOPMENT CHEMIST COMPREHENSIVE METABOLIC PANEL STAT 06/12/2024 11:22 AM PRODUCT DEVELOPMENT CHEMIST VALPROIC ACID LEVEL, TOTAL STAT 06/12/2024 11:22 AM PRODUCT DEVELOPMENT CHEMIST ECG 12-LEAD Routine 06/12/2024 11:01 AM PRODUCT DEVELOPMENT CHEMIST TNI WITH LIPID PANEL Routine 08/24/2017 4:57 PM CDT from Last 3 Months or Most Recently Relevant to Health Maintenance Results * POCT Rapid HIV Antibody Community Screening-Issa Eligible (07/09/2024 5:32 AM PRODUCT DEVELOPMENT CHEMIST) Pathologist [facility] [place] Rapid HIV, POC Negative Negative Lot Number [id number] QC Control Line Acceptable Blood 07/09/2024 5:32 AM PRODUCT DEVELOPMENT CHEMIST Naa Tam MD POINT OF CARE TEST ORDER NICHOLE Final Result * Sepsis Lactate w/ Reflex (07/09/2024 4:33 AM PRODUCT DEVELOPMENT CHEMIST) Pathologist [facility] [place] Sepsis Lactate 2.0 0.7 - 2.0 mmol/L Blood 07/09/2024 4:33 AM PRODUCT DEVELOPMENT CHEMIST 07/09/2024 4:42 AM PRODUCT DEVELOPMENT CHEMIST us Naa Tam MD LAB BLOOD ORDERABLES Fin al Result [facility] Department [place] [address] * ED PERIPHERAL LINE INSERTION (07/09/2024 1:18 AM PRODUCT DEVELOPMENT CHEMIST) Narrative Cherie Damian MD - 07/09/2024 1:18 AM PRODUCT DEVELOPMENT CHEMIST Atul Barba MD 07/09/2024 1:18 AM Peripheral line insertion Date/Time: 07/09/2024 1:18 AM Performed by: Atul Barba MD Authorized by: Cherie Damian MD Indications: Nursing unable to obtain Pre-procedure details: Hand hygiene: Hand hygiene performed prior to insertion Sterile barrier technique: All elements of maximal sterile technique followed Skin preparation: 2% chlorhexidine Skin preparation agent: Skin preparation agent completely dried prior to procedure Anesthesia (see MAR for exact dosages): Anesthesia method: None Procedure details: Catheter size: 20 G Laterality: Right Location: Antecubital fossa Number of attempts: 1 Ultrasound guidance was used to confirm vessel patency and needle position: Yes Successful placement: yes Post-procedure details: Post-procedure: Dressing applied and line secured Patient tolerance of procedure: Tolerated well, no immediate complications Cherie Damian MD IN CLINIC/BEDSIDE ORDERABL ES Final Result * (ABNORMAL) Sepsis Lactate w/ Reflex (07/09/2024 1:15 AM PRODUCT DEVELOPMENT CHEMIST) Pathologist [facility] [place] Sepsis Lactate 2.8(H) 0.7 - 2.0 mmol/L Blood 07/09/2024 1:15 AM PRODUCT DEVELOPMENT CHEMIST 07/09/2024 1:46 AM PRODUCT DEVELOPMENT CHEMIST Naa Tam MD LAB BLOOD ORDERABLES Fin al Result Performing Organization Address City/[facility]/ZIP Co de Phone Number [facility] Department [place] [address] * RPR Blood (07/09/2024 1:15 AM PRODUCT DEVELOPMENT CHEMIST) [facility] RPR Nonreactive Nonreactive Blood 07/09/2024 1:15 AM PRODUCT DEVELOPMENT CHEMIST 07/09/2024 1:40 AM PRODUCT DEVELOPMENT CHEMIST Result [facility] Naa Tam MD LAB MICROBIOLOGY - GENER AL ORDERABLES Final Result Performing Organization Address [facility] Co de Phone Number [facility] Department [place] [address] * N. gonorrhoeae/C. trachomatis Amplification Urine (07/09/2024 1:02 AM PRODUCT DEVELOPMENT CHEMIST) [facility] C. trachomatis Not Detected Not Detected [facility] N. gonorrhoeae Not Detected Not Detected [facility] Comment: Interpretive Data This assay detects Chlamydia trachomatis and Neisseria gonorrhoeae by nucleic acid amplification testing (NAAT). This assay has been cleared by the [place] Food and Drug administration. The performance characteristics of this test have been verified by the [facility] Molecular Infectious Disease laboratory. The performance characteristics of this test have not been evaluated in individuals less than 14 years of age. Current Interpretive Data last revised 2023. Urine (None) 07/09/2024 1:02 AM PRODUCT DEVELOPMENT CHEMIST 07/09/2024 1:35 AM PRODUCT DEVELOPMENT CHEMIST us Naa Tam MD LAB MICROBIOLOGY - GENER AL ORDERABLES Final Result Performing Organization Address [facility]/ZIP Co de Phone Number [facility] [place] [address] BJ * (ABNORMAL) Urinalysis reflex to microscopic and culture Urine, clean voided (07/09/2024 1:02 AM PRODUCT DEVELOPMENT CHEMIST) Color, ur Straw Yellow Clarity, ur Clear Clear [facility] Specific gravity, ur >1.042(H) 1.003 - 1.030 [facility] pH, urine 7.5 [facility] Comment: Interpretive Data U rine pH is affected by diet, medications, systemic acid-base disturbances, and renal tubular function. pH may affect urinary stone formation. For example, urine pH below 6.0 may help reduce the tendency for calcium phosphate stones and pH greater than 6.0 may reduce the tendency for uric acid stone formation. Source: [facility] Current Interpretive Data was last revised on 2017 Protein, ur ql Trace Negative [facility] Glucose, ur ql Negative Negative [facility] Ketones, ur Negative Negative [facility] Bilirubin, ur Negative Negative [facility] Blood, ur Negative Negative [facility] Urobilinogen, ur <2.0 <2.0 mg/dL [facility] Nitrite, ur Negative Negative [facility] Leukocyte esterase, ur Negative Negative [facility] UA reflex comment Reflex conditions for microscopic UA and culture not met. [facility] Urine, clean voided 07/09/2024 1:02 AM PRODUCT DEVELOPMENT CHEMIST 07/09/2024 1:15 AM PRODUCT DEVELOPMENT CHEMIST us Naa Tam MD LAB MICROBIOLOGY - GENER AL ORDERABLES Final Result Performing Organization Address [facility] Co de Phone Number [facility] [place] [address] * ED PERIPHERAL LINE INSERTION (07/08/2024 10:11 PM PRODUCT DEVELOPMENT CHEMIST) Narrative Amrtinez, Tri Anthony, MD - 07/08/2024 10:11 PM PRODUCT DEVELOPMENT CHEMIST Atul Barba MD 07/08/2024 10:12 PM Peripheral line insertion Date/Time: 07/08/2024 10:11 PM Performed by: Atul Barba MD Authorized by: Tri Martinez MD Indications: Nursing unable to obtain Pre-procedure details: Hand hygiene: Hand hygiene performed prior to insertion Sterile barrier technique: All elements of maximal sterile technique followed Skin preparation: 2% chlorhexidine Skin preparation agent: Skin preparation agent completely dried prior to procedure Anesthesia (see MAR for exact dosages): Anesthesia method: None Procedure details: Catheter size: 20 G Laterality: Right Location: Upper arm Number of attempts: 2 Ultrasound guidance was used to confirm vessel patency and needle position: Yes Successful placement: yes Post-procedure details: Post-procedure: Dressing applied and line secured Patient tolerance of procedure: Tolerated well, no immediate complications us Tri Martinez MD IN CLINIC/BEDSIDE ORDERAB LES Final Result * CT Chest Abdomen Pelvis W Contrast (07/08/2024 9:55 PM PRODUCT DEVELOPMENT CHEMIST) Anatomical Region Laterality Modality Body N/A Computed Tomogra phy 07/08/2024 10:3 2 PM PRODUCT DEVELOPMENT CHEMIST Impressions 07/09/2024 7:23 AM PRODUCT DEVELOPMENT CHEMIST Liquid stool within the colon, indicative of diarrheal state. Otherwise, no acute abnormalities in the abdomen or pelvis. Dictated by: Delia Morton MD The radiology attending physician has personally reviewed this study, and had reviewed and/or edited this written report and agrees with it. Electronically signed by: Marlon Kohler M.D. Narrative 07/09/2024 7:23 AM PRODUCT DEVELOPMENT CHEMIST EXAMINATION: Computed tomography of the chest, abdomen and pelvis with intravenous contrast HISTORY: 64-year-old male presenting with respiratory distress, intolerance of tube feeds TECHNIQUE: Transaxial computed tomographic images of the chest, abdomen and pelvis were obtained with intravenous contrast according to the standard protocol after the uneventful administration of 93 mL Opti-Ray 350 intravenous contrast. COMPARISON: CT dated 06/12/2024 FINDINGS: Tracheostomy tube terminates in the upper thoracic trachea. Percutaneous gastrojejunostomy tube balloon in appropriate position in the gastric body, tip of the catheter in the proximal jejunum. Chest: Normal caliber thoracic aorta. Normal main pulmonary artery size. No central pulmonary embolism. Normal heart size without pericardial effusion. Possible sequela of prior myocardial infarction, with thinning of the myocardium at the left ventricular apex. Mild coronary artery atherosclerotic calcification. No supraclavicular, axillary, mediastinal, or hilar lymphadenopathy. Minimal dependent atelectasis. Bibasilar bronchial wall thickening, likely sequela of chronic infection and unchanged compared to the prior CT. No pleural effusion or pneumothorax. Abdomen/Pelvis: No focal hepatic lesions. Normal gallbladder. No intrahepatic or extrahepatic ductal dilatation. Normal spleen, adrenals, pancreas. Symmetric enhancement of the kidneys. Hyperdense lesion in the bilateral renal pelvises sees are favored to represent vascular calcification. No definite renal stones or hydronephrosis. Trace normal bladder. Mild prostatomegaly. Small hiatal hernia.. Normal stomach, duodenum. Normal caliber small bowel without evidence of bowel obstruction. Liquid contents are seen in the colon. Normal appendix. Fat deposition is noted in the wall of the ascending colon, a nonspecific finding. No free fluid or pneumoperitoneum. No abdominal or pelvic lymphadenopathy. No suspicious osseous lesions. 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 Procedure Note Marlon Kohler MD - 07/09/2024 EXAMINATION: Computed tomography of the chest, abdomen and pelvis with intravenous contrast HISTORY: 64-year-old male presenting with respiratory distress, intolerance of tube feeds TECHNIQUE: Transaxial computed tomographic images of the chest, abdomen and pelvis were obtained with intravenous contrast according to the standard protocol after the uneventful administration of 93 mL Opti-Ray 350 intravenous contrast. COMPARISON: CT dated 06/12/2024 FINDINGS: Tracheostomy tube terminates in the upper thoracic trachea. Percutaneous gastrojejunostomy tube balloon in appropriate position in the gastric body, tip of the catheter in the proximal jejunum. Chest: Normal caliber thoracic aorta. Normal main pulmonary artery size. No central pulmonary embolism. Normal heart size without pericardial effusion. Possible sequela of prior myocardial infarction, with thinning of the myocardium at the left ventricular apex. Mild coronary artery atherosclerotic calcification. No supraclavicular, axillary, mediastinal, or hilar lymphadenopathy. Minimal dependent atelectasis. Bibasilar bronchial wall thickening, likely sequela of chronic infection and unchanged compared to the prior CT. No pleural effusion or pneumothorax. Abdomen/Pelvis: No focal hepatic lesions. Normal gallbladder. No intrahepatic or extrahepatic ductal dilatation. Normal spleen, adrenals, pancreas. Symmetric enhancement of the kidneys. Hyperdense lesion in the bilateral renal pelvises sees are favored to represent vascular calcification. No definite renal stones or hydronephrosis. Trace normal bladder. Mild prostatomegaly. Small hiatal hernia.. Normal stomach, duodenum. Normal caliber small bowel without evidence of bowel obstruction. Liquid contents are seen in the colon. Normal appendix. Fat deposition is noted in the wall of the ascending colon, a nonspecific finding. No free fluid or pneumoperitoneum. No abdominal or pelvic lymphadenopathy. No suspicious osseous lesions. 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 IMPRESSION: Liquid stool within the colon, indicative of diarrheal state. Otherwise, no acute abnormalities in the abdomen or pelvis. Dictated by: Delia Morton MD The radiology attending physician has personally reviewed this study, and had reviewed and/or edited this written report and agrees with it. Electronically signed by: Marlon Kohler M.D. us Naa Tam MD IMG CT PROCEDURES Final Result * (ABNORMAL) Sepsis Lactate w/ Reflex (07/08/2024 8:56 PM PRODUCT DEVELOPMENT CHEMIST) [facility] Sepsis Lactate 2.4(H) 0.7 - 2.0 mmol/L Blood 07/08/2024 8:56 PM PRODUCT DEVELOPMENT CHEMIST 07/08/2024 9:24 PM PRODUCT DEVELOPMENT CHEMIST us Naa Tam MD LAB BLOOD ORDERABLES Fin al Result [facility] Department [place] [address] * eGFR (07/08/2024 8:56 PM PRODUCT DEVELOPMENT CHEMIST) [facility] eGFR >90 >=60 mL/min/1. 73 m2 Comment: Interpretive Data Reference Interval Normal >/= 90 mL/min/1.73m2 Mildly decreased* 60 - 89 mL/min/1.73m2 Mildly to moderately decreased 45 - 59 mL/min/1.73m2 Moderately to severely decreased 30 - 44 mL/min/1.73m2 Severely decreased 15 - 29 mL/min/1.73m2 Kidney Failure < 15 mL/min/1.73m2 *Relative to young adult level Estimated glomerular filtration rate is determined by the 2020 CKD-EPI equation recommended by the National Kid[employer] (A Unifying Approach to GFR Estimation: Recommendations of the NKF-ASK Task Force on Reassessing the Inclusion of Race in Diagnosing Kidney Disease, JASN 202). The CKD-EPI equation should not be used for patients with unstable renal function and has not been validated in children and those over 70. Current interpretive data was last reviewed 2021. Blood 07/08/2024 8:56 PM PRODUCT DEVELOPMENT CHEMIST 07/08/2024 9:26 PM PRODUCT DEVELOPMENT CHEMIST us Naa Tam MD LAB BLOOD ORDERABLES Fin al Result [facility] [place] [address] * Differential, auto (07/08/2024 8:56 PM PRODUCT DEVELOPMENT CHEMIST) Neutrophil abs 4.4 1.5 - 6.5 K/cumm Imm gran abs 0.0 0.0 - 0.1 K/cumm [facility] Lymphocyte abs 2.6 0.8 - 3.3 K/cumm [facility] Monocyte abs 0.5 0.2 - 0.8 K/cumm [facility] Eosinophil abs 0.5 0.0 - 0.5 K/cumm [facility] Basophil abs 0.0 0.0 - 0.1 K/cumm [facility] Neutrophil pct 54.7 % [facility] Comment: Interpretive Data Percent cell count reference ranges are not reported, since discordance with absolute values may lead to misinterpretation of CBC data. Current Interpretive Data was last revised on 2017. Imm gran pct 0.2 % [facility] Comment: Interpretive Data Percent cell count reference ranges are not reported, since discordance with absolute values may lead to misinterpretation of CBC data. Current Interpretive Data was last revised on 2017. Lymphocyte pct 32.1 % [facility] Comment: Interpretive Data Percent cell count reference ranges are not reported, since discordance with absolute values may lead to misinterpretation of CBC data. Current Interpretive Data was last revised on 2017. Monocyte pct 6.6 % [facility] Comment: Interpretive Data Percent cell count reference ranges are not reported, since discordance with absolute values may lead to misinterpretation of CBC data. Current Interpretive Data was last revised on 2017. Eosinophil pct 6.0 % [facility] Comment: Interpretive Data Percent cell count reference ranges are not reported, since discordance with absolute values may lead to misinterpretation of CBC data. Current Interpretive Data was last revised on 2017. Basophil pct 0.4 % [facility] Comment: Interpretive Data Percent cell count reference ranges are not reported, since discordance with absolute values may lead to misinterpretation of CBC data. Current Interpretive Data was last revised on 2017. Blood 07/08/2024 8:56 PM PRODUCT DEVELOPMENT CHEMIST 07/08/2024 9:27 PM PRODUCT DEVELOPMENT CHEMIST Naa Tam MD LAB BLOOD ORDERABLES Fin al Result [facility] Department [place] [address] * Respiratory pathogen panel Nasopharyngeal (07/08/2024 8:56 PM PRODUCT DEVELOPMENT CHEMIST) Pathologist [facility] Influenza A RNA Not Detected Not Detected Influenza B RNA Not Detected Not Detected [facility] RSV RNA Not Detected Not Detected [facility] COVID-19 RNA Not Detected Not Detected [facility] Coronavirus 229E RNA Not Detected Not Detected [facility] Coronavirus HKU1 RNA Not Detected Not Detected [facility] Coronavirus NL63 RNA Not Detected Not Detected [facility] Coronavirus OC43 RNA Not Detected Not Detected [facility] Adenovirus DNA Not Detected Not Detected [facility] Metapneumovirus RNA Not Detected Not Detected [facility] Rhinovirus/Enterov irus RNA Not Detected Not Detected [facility] Parainfluenza 1 RNA Not Detected Not Detected [facility] Parainfluenza 2 RNA Not Detected Not Detected [facility] Parainfluenza 3 RNA Not Detected Not Detected [facility] Parainfluenza 4 RNA Not Detected Not Detected [facility] B. pertussis DNA Not Detected Not Detected [facility] B. parapertussis DNA Not Detected Not Detected [facility] C. pneumoniae DNA Not Detected Not Detected [facility] M. pneumoniae DNA Not Detected Not Detected [facility] Nasopharyngeal 07/08/2024 8: 56 PM PRODUCT DEVELOPMENT CHEMIST 07/08/2024 9:25 PM PRODUCT DEVELOPMENT CHEMIST Narrative [facility] - 07/08/2024 10:16 PM PRODUCT DEVELOPMENT CHEMIST Is the Patient experiencing symptoms consistent with COVID?->Yes Surveillance testing for transplant patient?->No Interpretive Data The [employer] FilmArray Respiratory Panel (RP2.1) assay is a multiplexed real-time PCR based nucleic acid test capable of simultaneous qualitative detection and identification of multiple respiratory viral and bacterial nucleic acids, including SARS Coronavirus 2 (the causative agent of COVID-19). The following bacteria, viruses and virus subtypes can be identified using the FilmArray RP2.1 assay: Bordetella pertussis, Bordetella parapertussis, Chlamydia pneumoniae, Mycoplasma pneumoniae, Adenovirus, SARS Coronavirus 2, seasonal coronaviruses (Coronavirus HKU1, Coronavirus NL63, Coronavirus 229E, and Coronavirus OC43), Influenza A, Influenza A subtype H1, Influenza A subtype H3, Influenza A subtype 2009 H1, Influenza B, Metapneumovirus, Parainfluenza 1, Parainfluenza 2, Parainfluenza 3, Parainfluenza 4, RSV, Rhinovirus/Enterovirus. Due to the genetic similarity between human Rhinovirus and Enterovirus, the FilmArray RP2.1 assay cannot reliably differentiate them. Coronavirus OC43 may cross-react with some isolates of Coronavirus HKU1. A dual positive result may be due to cross-reactivity or may indicate a co- infection. The detection and identification of specific viral and bacterial nucleic acids from individuals exhibiting signs and symptoms of a respiratory infection aids in the diagnosis of respiratory infection if used in conjunction with other clinical and epidemiological information. The results of this test should not be used as the sole basis for diagnosis, treatment, or other management decisions. Negative results in the setting of a respiratory illness may be due to infection with pathogens that are not detected by this test. Positive results do not rule out infection/co-infection with other organisms. The agent(s) detected by the FilmArray RP2.1 may not be the definite cause of disease. Additional testing (lab, imaging, etc.) may be necessary when evaluating a patient with possible respiratory tract infection. The FilmArray RP2.1 assay has FDA clearance for testing of [employer] swabs. The performance of additional specimen types has been assessed by the performing laboratory. The performance characteristics of this assay have been determined by [facility] Molecular Infectious Disease Laboratory. Current interpretive data was last revised on 22. us Naa Tam MD LAB MICROBIOLOGY - HEALTH SYSTEM ORDERABLES Final Result [facility] [place] [address] * (ABNORMAL) CBC with auto differential (07/08/2024 8:56 PM PRODUCT DEVELOPMENT CHEMIST) Pathologist [facility] [place] WBC 8.0 3.8 - 9.9 K/cumm Hgb 14.4 13.0 - 17.5 g/dL [facility] Hct 43.3 38.9 - 50.3 % [facility] Plt 236 150 - 400 K/cumm [facility] MPV 12.4(H) 9.1 - 12.3 fL [facility] RBC 4.49 4.30 - 5.80 M/cumm [facility] MCV 96.4 81.3 - 96.4 fL [facility] MCH 32.1 27.1 - 33.3 pg [facility] MCHC 33.3 32.3 - 35.7 g/dL [facility] RDW CV 13.5 11.1 - 14.9 % [facility] RDW SD 47.9 35.7 - 48.1 fL [facility] NRBC abs 0.00 0.00 - 0.01 K/cumm [facility] Blood 07/08/2024 8:56 PM PRODUCT DEVELOPMENT CHEMIST 07/08/2024 9:27 PM PRODUCT DEVELOPMENT CHEMIST us Naa Tam MD LAB BLOOD ORDERABLES Fin al Result Performing Organization Address City/[facility]/ZIP Co de Phone Number [facility] [place] [address] * Lipase (07/08/2024 8:56 PM PRODUCT DEVELOPMENT CHEMIST) Pathologist [facility] [place] Lipase 32 10 - 99 Units/L Blood 07/08/2024 8:56 PM PRODUCT DEVELOPMENT CHEMIST 07/08/2024 9:26 PM PRODUCT DEVELOPMENT CHEMIST us Naa Tam MD LAB BLOOD ORDERABLES Fin al Result Performing Organization Address [facility] de Phone Number [facility] [place] [address] * (ABNORMAL) Comprehensive metabolic panel (07/08/2024 8:56 PM PRODUCT DEVELOPMENT CHEMIST) [facility] Sodium 141 135 - 145 mmol/L Potassium, pl 4.5 3.3 - 4.9 mmol/L [facility] Chloride 102 97 - 110 mmol/L [facility] CO2 28 22 - 32 mmol/L [facility] Anion gap 11 2 - 15 mmol/L [facility] BUN 15 6 - 25 mg/dL [facility] Creatinine 0.63(L) 0.80 - 1.30 mg/dL [facility] Glucose 110 70 - 199 mg/dL [facility] Comment: Interpretive Data Fasting glucose >/= 126 mg/dl is diagnostic for diabetes. Fasting is defined as no caloric intake for at least 8 hours. Fasting glucose between 100 mg/dl to 125 mg/dl is diagnostic of prediabetes. In a patient with classic symptoms of hyperglycemia or hyperglycemic crisis, a random glucose >/= 200 mg/dl is diagnostic for diabetes. In the absence of unequivocal hyperglycemia, results should be confirmed by repeat testing. The classification and Diagnosis of Diabetes Diabetes Care 2021; 46: S19-S40. Current interpretive data was last revised 2022. Calcium 10.1 8.5 - 10.3 mg/dL [facility] Bilirubin, total 0.2 0.1 - 1.2 mg/dL [facility] Protein, pl 8.0 6.5 - 8.5 g/dL [facility] Albumin 4.1 3.5 - 5.0 g/dL [facility] Alk phos 110 40 - 130 Units/L [facility] ALT 28 7 - 55 Units/L [facility] AST 26 10 - 50 Units/L [facility] Blood 07/08/2024 8:56 PM PRODUCT DEVELOPMENT CHEMIST 07/08/2024 9:26 PM PRODUCT DEVELOPMENT CHEMIST us Naa Tam MD LAB BLOOD ORDERABLES Fin al Result Performing Organization Address [facility] Co de Phone Number [facility] [place] [address] * ECG 12-LEAD (07/08/2024 8:28 PM PRODUCT DEVELOPMENT CHEMIST) Narrative [facility] - 07/08/2024 8:28 PM PRODUCT DEVELOPMENT CHEMIST Naa Tam MD 07/08/2024 8:30 PM ECG 12 lead Date/Time: 07/08/2024 8:28 PM Performed by: Naa Tam MD Authorized by: Naa Tam MD Quality: Tracing quality: Limited by artifact Rate: ECG rate: 99 ECG rate assessment: normal Rhythm: Rhythm: sinus rhythm Ectopy: Ectopy: none QRS: QRS axis: Left Conduction: Conduction: normal ST segments: ST segments: Non-specific T waves: T waves: non-specific and flattening Previous ECG: Previous ECG: Compared to current Date of previous EC06/12/2024 Similarity: No change Interpretation: Interpretation: NSTEMI Recommended Follow-up: Recommended follow up: further workup in the ED Comments: Overall baseline variability on this EKG makes it difficult to compare to the prior. It then this limitation, I note no changes. This is not a STEMI. us Naa Tam MD ECG ORDERABLES Final Re sult Performing Organization Address City/[facility]/ZIP Co de Phone Number [facility] * XR Chest 1 View (07/08/2024 8:18 PM PRODUCT DEVELOPMENT CHEMIST) Anatomical Region Laterality Modality Body, Chest N/A Computed Radiogr aphy 07/08/2024 8:28 PM PRODUCT DEVELOPMENT CHEMIST Impressions 07/08/2024 9:56 PM PRODUCT DEVELOPMENT CHEMIST Comparison is made to chest graft dated 06/19/2024. Tracheostomy tube in place. Small lung volumes with minimal bibasilar atelectasis. No pleural effusion or pneumothorax. The heart and mediastinal contours are stable. Dictated by: Ramesh Miranda MD The radiology attending physician has personally reviewed this study, and had reviewed and/or edited this written report and agrees with it. Electronically signed by: Sekou Wolf M.D. Narrative 07/08/2024 9:56 PM PRODUCT DEVELOPMENT CHEMIST EXAMINATION: 1 view chest radiograph Procedure Note Sekou Wolf MD - 07/08/2024 EXAMINATION: 1 view chest radiograph IMPRESSION: Comparison is made to chest graft dated 06/19/2024. Tracheostomy tube in place. Small lung volumes with minimal bibasilar atelectasis. No pleural effusion or pneumothorax. The heart and mediastinal contours are stable. Dictated by: Ramesh Miranda MD The radiology attending physician has personally reviewed this study, and had reviewed and/or edited this written report and agrees with it. Electronically signed by: Sekou Wolf M.D. us Naa Tam MD IMG XR PROCEDURES Final Result * POCT glucose (06/28/2024 4:24 PM PRODUCT DEVELOPMENT CHEMIST) Glucose, POC 191 70 - 199 mg/dL Blood 06/28/2024 4:24 PM PRODUCT DEVELOPMENT CHEMIST 06/28/2024 4:24 PM PRODUCT DEVELOPMENT CHEMIST us Kami Dupont MD LAB POCT ORDERABLES - DEV ICE Final Result [facility] [place] [address] * POCT glucose (06/28/2024 12:30 PM PRODUCT DEVELOPMENT CHEMIST) Glucose, POC 197 70 - 199 mg/dL Blood 06/28/2024 12:3 0 PM PRODUCT DEVELOPMENT CHEMIST 06/28/2024 12:30 PM PRODUCT DEVELOPMENT CHEMIST Kami Dupont MD LAB POCT ORDERABLES - DEV ICE Final Result Performing Organization Address City/[facility] [place] [address] * POCT glucose (06/28/2024 7:43 AM PRODUCT DEVELOPMENT CHEMIST) Glucose, POC 191 70 - 199 mg/dL Blood 06/28/2024 7:43 AM PRODUCT DEVELOPMENT CHEMIST 06/28/2024 7:43 AM PRODUCT DEVELOPMENT CHEMIST Kami Dupont MD LAB POCT ORDERABLES - DEV ICE Final Result Performing Organization Address [facility] [place] [address] * POCT glucose (06/28/2024 4:01 AM PRODUCT DEVELOPMENT CHEMIST) Glucose, POC 173 70 - 199 mg/dL Blood 06/28/2024 4:01 AM PRODUCT DEVELOPMENT CHEMIST 06/28/2024 4:01 AM PRODUCT DEVELOPMENT CHEMIST Kami Dupont MD LAB POCT ORDERABLES - DEV ICE Final Result Performing Organization Address [facility] [place] [address] * (ABNORMAL) POCT glucose (06/27/2024 11:28 PM PRODUCT DEVELOPMENT CHEMIST) Glucose, POC 220(H) 70 - 199 mg/dL Comment:Use Protocol Glucose comment 1 Use Protocol [facility] Blood 06/27/2024 11:2 8 PM PRODUCT DEVELOPMENT CHEMIST 06/27/2024 11:28 PM PRODUCT DEVELOPMENT CHEMIST Kami Dupont MD LAB POCT ORDERABLES - DEV ICE Final Result Performing Organization Address [facility] de Phone Number [facility] [place] [employer] [place] [address] * eGFR (06/27/2024 9:30 PM PRODUCT DEVELOPMENT CHEMIST) eGFR >90 >=60 mL/min/1. 73 m2 Comment: Interpretive Data Reference Interval Normal >/= 90 mL/min/1.73m2 Mildly decreased* 60 - 89 mL/min/1.73m2 Mildly to moderately decreased 45 - 59 mL/min/1.73m2 Moderately to severely decreased 30 - 44 mL/min/1.73m2 Severely decreased 15 - 29 mL/min/1.73m2 Kidney Failure < 15 mL/min/1.73m2 *Relative to young adult level Estimated glomerular filtration rate is determined by the 2020 CKD-EPI equation recommended by the National Kidney Foundation (A Unifying Approach to GFR Estimation: Recommendations of the NKF-ASK Task Force on Reassessing the Inclusion of Race in Diagnosing Kidney Disease, JASN 2020). The CKD-EPI equation should not be used for patients with unstable renal function and has not been validated in children and those over 70. Current interpretive data was last reviewed 2021. Blood 06/27/2024 9:30 PM PRODUCT DEVELOPMENT CHEMIST 06/27/2024 9:45 PM PRODUCT DEVELOPMENT CHEMIST Kami Dupont MD LAB BLOOD ORDERABLES Lulu l Result Performing Organization Address [facility] Co de Phone Number [facility] [place] [employer] [place] [address] * Phosphorus (06/27/2024 9:30 PM PRODUCT DEVELOPMENT CHEMIST) Pathologist [facility] [place] Phosphorus, pl 3.3 2.3 - 4.5 mg/dL Comment:Repeated and Verifie d Blood 06/27/2024 9:30 PM PRODUCT DEVELOPMENT CHEMIST 06/27/2024 9:45 PM PRODUCT DEVELOPMENT CHEMIST Kami Dupont MD LAB BLOOD ORDERABLES Lulu l Result Performing Organization Address [facility] Co de Phone Number [facility] [place] [address] * Magnesium (06/27/2024 9:30 PM PRODUCT DEVELOPMENT CHEMIST) Pathologist [facility] [place] Magnesium 1.9 1.4 - 2.5 mg/dL Blood 06/27/2024 9:30 PM PRODUCT DEVELOPMENT CHEMIST 06/27/2024 9:45 PM PRODUCT DEVELOPMENT CHEMIST Kami Dupont MD LAB BLOOD ORDERABLES Lluu l Result Performing Organization Address [facility] Phone Number [facility] [place] [employer] [place] [address] * (ABNORMAL) Basic metabolic panel (06/27/2024 9:30 PM PRODUCT DEVELOPMENT CHEMIST) Pathologist [facility] [place] Sodium 141 135 - 145 mmol/L Potassium, pl 4.4 3.3 - 4.9 mmol/L [facility] Chloride 105 97 - 110 mmol/L [facility] CO2 28 22 - 32 mmol/L [facility] Anion gap 8 2 - 15 mmol/L [facility] BUN 9 6 - 25 mg/dL [facility] Creatinine 0.47(L) 0.80 - 1.30 mg/dL [facility] Glucose 208(H) 70 - 199 mg/dL [facility] Comment: Interpretive Data Fasting glucose >/= 126 mg/dl is diagnostic for diabetes. Fasting is defined as no caloric intake for at least 8 hours. Fasting glucose between 100 mg/dl to 125 mg/dl is diagnostic of prediabetes. In a patient with classic symptoms of hyperglycemia or hyperglycemic crisis, a random glucose >/= 200 mg/dl is diagnostic for diabetes. In the absence of unequivocal hyperglycemia, results should be confirmed by repeat testing. The classification and Diagnosis of Diabetes Diabetes Care 2021; 46: S19-S40. Current interpretive data was last revised 2022. Calcium 8.9 8.5 - 10.3 mg/dL [facility] Blood 06/27/2024 9:30 PM PRODUCT DEVELOPMENT CHEMIST 06/27/2024 9:45 PM PRODUCT DEVELOPMENT CHEMIST Kami Dupont MD LAB BLOOD ORDERABLES Lulu l Result Performing Organization Address City/[facility] Co de Phone Number [facility] [place] [employer] [place] [address] * POCT glucose (06/27/2024 8:39 PM PRODUCT DEVELOPMENT CHEMIST) Glucose, POC 195 70 - 199 mg/dL Blood 06/27/2024 8:39 PM PRODUCT DEVELOPMENT CHEMIST 06/27/2024 8:39 PM PRODUCT DEVELOPMENT CHEMIST Kami Dupont MD LAB POCT ORDERABLES - DEV ICE Final Result Performing Organization Address [facility] de Phone Number [facility] [place] [employer] [place] [address] * POCT glucose (06/27/2024 5:10 PM PRODUCT DEVELOPMENT CHEMIST) Glucose, POC 194 70 - 199 mg/dL Blood 06/27/2024 5:10 PM PRODUCT DEVELOPMENT CHEMIST 06/27/2024 5:10 PM PRODUCT DEVELOPMENT CHEMIST Kami Dupont MD LAB POCT ORDERABLES - DEV ICE Final Result Performing Organization Address [facility] de Phone Number [facility] [place] [employer] [place] [address] * (ABNORMAL) POCT glucose (06/27/2024 4:27 PM PRODUCT DEVELOPMENT CHEMIST) Glucose, POC 224(H) 70 - 199 mg/dL Blood 06/27/2024 4:27 PM PRODUCT DEVELOPMENT CHEMIST 06/27/2024 4:27 PM PRODUCT DEVELOPMENT CHEMIST us Kami Dupont MD LAB POCT ORDERABLES - DEV ICE Final Result Performing Organization Address [facility] de Phone Number [facility] [place] [employer] [place] [address] * POCT glucose (06/27/2024 1:06 PM PRODUCT DEVELOPMENT CHEMIST) Glucose, POC 173 70 - 199 mg/dL Blood 06/27/2024 1:06 PM PRODUCT DEVELOPMENT CHEMIST 06/27/2024 1:06 PM PRODUCT DEVELOPMENT CHEMIST Kami Dupont MD LAB POCT ORDERABLES - DEV ICE Final Result Performing Organization Address [facility] de Phone Number [facility] [place] [employer] [place] [address] * POCT glucose (06/27/2024 9:59 AM PRODUCT DEVELOPMENT CHEMIST) Glucose, POC 158 70 - 199 mg/dL Blood 06/27/2024 9:59 AM PRODUCT DEVELOPMENT CHEMIST 06/27/2024 9:59 AM PRODUCT DEVELOPMENT CHEMIST Kami Dupont MD LAB POCT ORDERABLES - DEV ICE Final Result Performing Organization Address [facility] [place] [address] * eGFR (06/26/2024 10:21 PM PRODUCT DEVELOPMENT CHEMIST) eGFR >90 >=60 mL/min/1. 73 m2 Comment: Interpretive Data Reference Interval Normal >/= 90 mL/min/1.73m2 Mildly decreased* 60 - 89 mL/min/1.73m2 Mildly to moderately decreased 45 - 59 mL/min/1.73m2 Moderately to severely decreased 30 - 44 mL/min/1.73m2 Severely decreased 15 - 29 mL/min/1.73m2 Kidney Failure < 15 mL/min/1.73m2 *Relative to young adult level Estimated glomerular filtration rate is determined by the 2020 CKD-EPI equation recommended by the National Kidney Foundation (A Unifying Approach to GFR Estimation: Recommendations of the NKF-ASK Task Force on Reassessing the Inclusion of Race in Diagnosing Kidney Disease, JASN 202). The CKD-EPI equation should not be used for patients with unstable renal function and has not been validated in children and those over 70. Current interpretive data was last reviewed 2021. Blood 06/26/2024 10:2 1 PM PRODUCT DEVELOPMENT CHEMIST 06/26/2024 10:53 PM PRODUCT DEVELOPMENT CHEMIST us Kami Dupont MD LAB BLOOD ORDERABLES Lulu coley Result [facility] [place] [address] * Differential, auto (06/26/2024 10:21 PM PRODUCT DEVELOPMENT CHEMIST) Pathologist [facility] Neutrophil abs 5.0 1.5 - 6.5 K/cumm Imm gran abs 0.0 0.0 - 0.1 K/cumm [facility] Lymphocyte abs 2.4 0.8 - 3.3 K/cumm [facility] Monocyte abs 0.8 0.2 - 0.8 K/cumm [facility] Eosinophil abs 0.4 0.0 - 0.5 K/cumm [facility] Basophil abs 0.0 0.0 - 0.1 K/cumm [facility] Neutrophil pct 58.2 % [facility] Comment: Interpretive Data Percent cell count reference ranges are not reported, since discordance with absolute values may lead to misinterpretation of CBC data. Current Interpretive Data was last revised on 2017. Imm gran pct 0.3 % [facility] Comment: Interpretive Data Percent cell count reference ranges are not reported, since discordance with absolute values may lead to misinterpretation of CBC data. Current Interpretive Data was last revised on 2017. Lymphocyte pct 27.9 % [facility] Comment: Interpretive Data Percent cell count reference ranges are not reported, since discordance with absolute values may lead to misinterpretation of CBC data. Current Interpretive Data was last revised on 2017. Monocyte pct 9.2 % [facility] Comment: Interpretive Data Percent cell count reference ranges are not reported, since discordance with absolute values may lead to misinterpretation of CBC data. Current Interpretive Data was last revised on 2017. Eosinophil pct 4.1 % [facility] Comment: Interpretive Data Percent cell count reference ranges are not reported, since discordance with absolute values may lead to misinterpretation of CBC data. Current Interpretive Data was last revised on 2017. Basophil pct 0.3 % [facility] Comment: Interpretive Data Percent cell count reference ranges are not reported, since discordance with absolute values may lead to misinterpretation of CBC data. Current Interpretive Data was last revised on 2017. Blood 06/26/2024 10:2 1 PM PRODUCT DEVELOPMENT CHEMIST 06/26/2024 10:53 PM PRODUCT DEVELOPMENT CHEMIST us Kami Dupont MD LAB BLOOD ORDERABLES Lulu l Result [facility] [place] [address] * (ABNORMAL) CBC with auto differential (06/26/2024 10:21 PM PRODUCT DEVELOPMENT CHEMIST) WBC 8.6 3.8 - 9.9 K/cumm Hgb 13.1 13.0 - 17.5 g/dL [facility] Hct 39.1 38.9 - 50.3 % [facility] Plt 173 150 - 400 K/cumm [facility] MPV 13.1(H) 9.1 - 12.3 fL [facility] RBC 4.07(L) 4.30 - 5.80 M/cumm [facility] MCV 96.1 81.3 - 96.4 fL [facility] MCH 32.2 27.1 - 33.3 pg [facility] MCHC 33.5 32.3 - 35.7 g/dL [facility] RDW CV 13.5 11.1 - 14.9 % [facility] RDW SD 47.8 35.7 - 48.1 fL [facility] NRBC abs 0.00 0.00 - 0.01 K/cumm [facility] Blood 06/26/2024 10:2 1 PM PRODUCT DEVELOPMENT CHEMIST 06/26/2024 10:53 PM PRODUCT DEVELOPMENT CHEMIST Kami Dupont MD LAB BLOOD ORDERABLES Lulu l Result Performing Organization Address City/[facility] Co de Phone Number [facility] [place] [address] * Hepatitis B Surface Antigen Blood (06/26/2024 10:21 PM PRODUCT DEVELOPMENT CHEMIST) [facility] HepBsAg Nonreactive Nonreactive Blood 06/26/2024 10:2 1 PM PRODUCT DEVELOPMENT CHEMIST 06/26/2024 10:53 PM PRODUCT DEVELOPMENT CHEMIST Kami Dupont MD LAB MICROBIOLOGY - GENERA L ORDERABLES Final Result Performing Organization Address [facility] de Phone Number [facility] Department [place] [employer] [place] [address] * (ABNORMAL) Phosphorus (06/26/2024 10:21 PM PRODUCT DEVELOPMENT CHEMIST) [facility] Phosphorus, pl <0.7(L) 2.3 - 4.5 mg/dL Comment:Repeated and Verifie d Blood 06/26/2024 10:2 1 PM PRODUCT DEVELOPMENT CHEMIST 06/26/2024 10:53 PM PRODUCT DEVELOPMENT CHEMIST Kami Dupont MD LAB BLOOD ORDERABLES Lulu l Result Performing Organization Address [facility] de Phone Number [facility] [place] [employer] [place] [address] * Magnesium (06/26/2024 10:21 PM PRODUCT DEVELOPMENT CHEMIST) [facility] Magnesium 2.0 1.4 - 2.5 mg/dL Blood 06/26/2024 10:2 1 PM PRODUCT DEVELOPMENT CHEMIST 06/26/2024 10:53 PM PRODUCT DEVELOPMENT CHEMIST Kami Dupont MD LAB BLOOD ORDERABLES Lulu l Result Performing Organization Address City/[facility]/ZIP Co de Phone Number [facility] [place] [address] * (ABNORMAL) Basic metabolic panel (06/26/2024 10:21 PM PRODUCT DEVELOPMENT CHEMIST) [facility] Sodium 141 135 - 145 mmol/L Potassium, pl 4.7 3.3 - 4.9 mmol/L [facility] Chloride 106 97 - 110 mmol/L [facility] CO2 28 22 - 32 mmol/L [facility] Anion gap 7 2 - 15 mmol/L [facility] BUN 11 6 - 25 mg/dL [facility] Creatinine 0.47(L) 0.80 - 1.30 mg/dL [facility] Glucose 213(H) 70 - 199 mg/dL [facility] Comment: Interpretive Data Fasting glucose >/= 126 mg/dl is diagnostic for diabetes. Fasting is defined as no caloric intake for at least 8 hours. Fasting glucose between 100 mg/dl to 125 mg/dl is diagnostic of prediabetes. In a patient with classic symptoms of hyperglycemia or hyperglycemic crisis, a random glucose >/= 200 mg/dl is diagnostic for diabetes. In the absence of unequivocal hyperglycemia, results should be confirmed by repeat testing. The classification and Diagnosis of Diabetes Diabetes Care 202; 46: S19-S40. Current interpretive data was last revised 2022. Calcium 9.3 8.5 - 10.3 mg/dL [facility] Blood 06/26/2024 10:2 1 PM PRODUCT DEVELOPMENT CHEMIST 06/26/2024 10:53 PM PRODUCT DEVELOPMENT CHEMIST Kami Dupont MD LAB BLOOD ORDERABLES Lulu l Result Performing Organization Address [facility]/ZIP Co de Phone Number [facility] Department [place] [employer] [place] [address] * HIV 1/2 Antibody plus p24 Antigen Blood (06/26/2024 3:21 PM PRODUCT DEVELOPMENT CHEMIST) Pathologist [facility] HIV 1/2 ab + p24 ag Nonreactive Nonreactive Comment:Nonreactive for HIV- 1 antigen and HIV-1/HIV-2 antibodies. No laboratory evidence of HIV infection. If acute HIV infection is suspected, consider testing for HIV-1 RNA. Current interpretive data was last revised on 22. Blood 06/26/2024 3:21 PM PRODUCT DEVELOPMENT CHEMIST 06/26/2024 3:41 PM PRODUCT DEVELOPMENT CHEMIST Kami Dupont MD LAB MICROBIOLOGY - GENERA L ORDERABLES Final Result Performing Organization Address [facility] de Phone Number [facility] [place] [address] * Hepatitis C antibody Blood (06/26/2024 3:21 PM PRODUCT DEVELOPMENT CHEMIST) [facility] Hep C Ab Nonreactive Nonreactive Comment:Antibodies to HCV no t detected. Does NOT exclude the possibility of recent exposure to HCV. Current interpretive data was last revised on 22 Blood 06/26/2024 3:2 1 PM PRODUCT DEVELOPMENT CHEMIST 06/26/2024 3:41 PM PRODUCT DEVELOPMENT CHEMIST Kami Dupont MD LAB MICROBIOLOGY - GENERA L ORDERABLES Final Result Performing Organization Address [facility] de Phone Number [facility] [place] [employer] [place] [address] * RPR Blood (06/26/2024 3:21 PM PRODUCT DEVELOPMENT CHEMIST) Pathologist [facility] RPR Nonreactive Nonreactive Blood 06/26/2024 3:21 PM PRODUCT DEVELOPMENT CHEMIST 06/26/2024 3:41 PM PRODUCT DEVELOPMENT CHEMIST Kami Dupont MD LAB MICROBIOLOGY - GENERA L ORDERABLES Final Result Performing Organization Address [facility]/ZIP Co de Phone Number [facility] [place] [address] * (ABNORMAL) Phosphorus (06/26/2024 3:21 PM PRODUCT DEVELOPMENT CHEMIST) Phosphorus, pl 0.7(L) 2.3 - 4.5 mg/dL Comment:Repeated and Verifie d Blood 06/26/2024 3:21 PM PRODUCT DEVELOPMENT CHEMIST 06/26/2024 3:41 PM PRODUCT DEVELOPMENT CHEMIST us Kami Dupont MD LAB BLOOD ORDERABLES Lulu l Result Performing Organization Address [facility] de Phone Number [facility] [place] [address] * eGFR (06/26/2024 12:16 AM PRODUCT DEVELOPMENT CHEMIST) Pathologist [facility] eGFR >90 >=60 mL/min/1. 73 m2 Comment: Interpretive Data Reference Interval Normal >/= 90 mL/min/1.73m2 Mildly decreased* 60 - 89 mL/min/1.73m2 Mildly to moderately decreased 45 - 59 mL/min/1.73m2 Moderately to severely decreased 30 - 44 mL/min/1.73m2 Severely decreased 15 - 29 mL/min/1.73m2 Kidney Failure < 15 mL/min/1.73m2 *Relative to young adult level Estimated glomerular filtration rate is determined by the 2020 CKD-EPI equation recommended by the National Kidney Foundation (A Unifying Approach to GFR Estimation: Recommendations of the NKF-ASK Task Force on Reassessing the Inclusion of Race in Diagnosing Kidney Disease, JASN 2020). The CKD-EPI equation should not be used for patients with unstable renal function and has not been validated in children and those over 70. Current interpretive data was last reviewed 2021. Blood 06/26/2024 12:1 6 AM PRODUCT DEVELOPMENT CHEMIST 06/26/2024 12:39 AM PRODUCT DEVELOPMENT CHEMIST us Patricia Bryant MD LAB BLOOD ORDERABLES Final Res ult Performing Organization Address [facility]/ZIP Co de Phone Number [facility] [place] [address] * (ABNORMAL) Phosphorus (06/26/2024 12:16 AM PRODUCT DEVELOPMENT CHEMIST) [facility] Phosphorus, pl <0.7(L) 2.3 - 4.5 mg/dL Comment:Repeated and Verifie d Blood 06/26/2024 12:1 6 AM PRODUCT DEVELOPMENT CHEMIST 06/26/2024 12:39 AM PRODUCT DEVELOPMENT CHEMIST Patricia Bryant MD LAB BLOOD ORDERABLES Final Res ult Performing Organization Address [facility] de Phone Number [facility] Department [place] [address] * Magnesium (06/26/2024 12:16 AM PRODUCT DEVELOPMENT CHEMIST) [facility] Magnesium 1.9 1.4 - 2.5 mg/dL Blood 06/26/2024 12:1 6 AM PRODUCT DEVELOPMENT CHEMIST 06/26/2024 12:39 AM PRODUCT DEVELOPMENT CHEMIST Patricia Bryant MD LAB BLOOD ORDERABLES Final Res ult Performing Organization Address [facility] de Phone Number [facility] Department [place] [address] * (ABNORMAL) Basic metabolic panel (06/26/2024 12:16 AM PRODUCT DEVELOPMENT CHEMIST) [facility] Sodium 142 135 - 145 mmol/L Potassium, pl 4.4 3.3 - 4.9 mmol/L [facility] Comment:Hemolyzed; Potassium value may be falsely elevated by as much as 0.3-0.5 mmol/L. Suggest redraw and reanalysis. Chloride 109 97 - 110 mmol/L [facility] CO2 29 22 - 32 mmol/L [facility] Anion gap 4 2 - 15 mmol/L [facility] BUN 13 6 - 25 mg/dL [facility] Creatinine 0.53(L) 0.80 - 1.30 mg/dL [facility] Glucose 177 70 - 199 mg/dL [facility] Comment: Interpretive Data Fasting glucose >/= 126 mg/dl is diagnostic for diabetes. Fasting is defined as no caloric intake for at least 8 hours. Fasting glucose between 100 mg/dl to 125 mg/dl is diagnostic of prediabetes. In a patient with classic symptoms of hyperglycemia or hyperglycemic crisis, a random glucose >/= 200 mg/dl is diagnostic for diabetes. In the absence of unequivocal hyperglycemia, results should be confirmed by repeat testing. The classification and Diagnosis of Diabetes Diabetes Care 2021; 46: S19-S40. Current interpretive data was last revised 2022. Calcium 9.0 8.5 - 10.3 mg/dL [facility] Blood 06/26/2024 12:1 6 AM PRODUCT DEVELOPMENT CHEMIST 06/26/2024 12:39 AM PRODUCT DEVELOPMENT CHEMIST Patricia Bryant MD LAB BLOOD ORDERABLES Final Res ult Performing Organization Address [facility]/ZIP Co de Phone Number [facility] [place] [address] * POCT glucose (06/23/2024 11:36 AM PRODUCT DEVELOPMENT CHEMIST) Glucose, POC 95 70 - 199 mg/dL Blood 06/23/2024 11:3 6 AM PRODUCT DEVELOPMENT CHEMIST 06/23/2024 11:36 AM PRODUCT DEVELOPMENT CHEMIST Patricia Bryant MD LAB POCT ORDERABLES - DEVICE F inal Result Performing Organization Address City/[facility]/ZIP Co de Phone Number [facility] [place] [address] * (ABNORMAL) CBC without differential (06/23/2024 9:07 AM PRODUCT DEVELOPMENT CHEMIST) Pathologist [facility] WBC 4.7 3.8 - 9.9 K/cumm Hgb 12.5(L) 13.0 - 17.5 g/dL [facility] Hct 37.4(L) 38.9 - 50.3 % [facility] Plt 145(L) 150 - 400 K/cumm [facility] MPV 12.6(H) 9.1 - 12.3 fL [facility] RBC 3.94(L) 4.30 - 5.80 M/cumm [facility] MCV 94.9 81.3 - 96.4 fL [facility] MCH 31.7 27.1 - 33.3 pg [facility] MCHC 33.4 32.3 - 35.7 g/dL [facility] RDW CV 12.9 11.1 - 14.9 % [facility] RDW SD 45.1 35.7 - 48.1 fL [facility] NRBC abs 0.00 0.00 - 0.01 K/cumm [facility] Blood 06/23/2024 9:07 AM PRODUCT DEVELOPMENT CHEMIST 06/23/2024 9:28 AM PRODUCT DEVELOPMENT CHEMIST us Patricia Bryant MD LAB BLOOD ORDERABLES Final Res ult [facility] [place] [address] * eGFR (06/23/2024 9:00 AM PRODUCT DEVELOPMENT CHEMIST) eGFR >90 >=60 mL/min/1. 73 m2 Comment: Interpretive Data Reference Interval Normal >/= 90 mL/min/1.73m2 Mildly decreased* 60 - 89 mL/min/1.73m2 Mildly to moderately decreased 45 - 59 mL/min/1.73m2 Moderately to severely decreased 30 - 44 mL/min/1.73m2 Severely decreased 15 - 29 mL/min/1.73m2 Kidney Failure < 15 mL/min/1.73m2 *Relative to young adult level Estimated glomerular filtration rate is determined by the 2020 CKD-EPI equation recommended by the National Kidney Foundation (A Unifying Approach to GFR Estimation: Recommendations of the NKF-ASK Task Force on Reassessing the Inclusion of Race in Diagnosing Kidney Disease, JASN 2020). The CKD-EPI equation should not be used for patients with unstable renal function and has not been validated in children and those over 70. Current interpretive data was last reviewed 2021. Blood 06/23/2024 9:00 AM PRODUCT DEVELOPMENT CHEMIST 06/23/2024 10:59 AM PRODUCT DEVELOPMENT CHEMIST Result Rose Bryant MD LAB BLOOD ORDERABLES Final Res ult Performing Organization Address [facility] de Phone Number [facility] [place] [address] * Phosphorus (06/23/2024 9:00 AM PRODUCT DEVELOPMENT CHEMIST) Phosphorus, pl 2.3 2.3 - 4.5 mg/dL Blood 06/23/2024 9:0 0 AM PRODUCT DEVELOPMENT CHEMIST 06/23/2024 10:59 AM PRODUCT DEVELOPMENT CHEMIST us Patricia Bryant MD LAB BLOOD ORDERABLES Final Res ult Performing Organization Address [facility] de Phone Number [facility] [place] [employer] [place] [address] * Magnesium (06/23/2024 9:00 AM PRODUCT DEVELOPMENT CHEMIST) Magnesium 1.7 1.4 - 2.5 mg/dL Blood 06/23/2024 9:00 AM PRODUCT DEVELOPMENT CHEMIST 06/23/2024 10:59 AM PRODUCT DEVELOPMENT CHEMIST us Patricia Bryant MD LAB BLOOD ORDERABLES Final Res ult Performing Organization Address [facility] de Phone Number [facility] [place] [address] * Vancomycin level trough (06/23/2024 9:00 AM PRODUCT DEVELOPMENT CHEMIST) Vancomycin trough 15.2 10.0 - 20.0 mcg/mL Blood 06/23/2024 9:00 AM PRODUCT DEVELOPMENT CHEMIST 06/23/2024 10:59 AM PRODUCT DEVELOPMENT CHEMIST us Patricia Bryant MD LAB BLOOD ORDERABLES Final Res ult [facility] [place] [address] * (ABNORMAL) Basic metabolic panel (06/23/2024 9:00 AM PRODUCT DEVELOPMENT CHEMIST) Sodium 143 135 - 145 mmol/L Potassium, pl 3.7 3.3 - 4.9 mmol/L [facility] Chloride 108 97 - 110 mmol/L [facility] CO2 28 22 - 32 mmol/L [facility] Anion gap 7 2 - 15 mmol/L [facility] BUN 3(L) 6 - 25 mg/dL [facility] Creatinine 0.50(L) 0.80 - 1.30 mg/dL [facility] Glucose 271(H) 70 - 199 mg/dL [facility] Comment: Interpretive Data Fasting glucose >/= 126 mg/dl is diagnostic for diabetes. Fasting is defined as no caloric intake for at least 8 hours. Fasting glucose between 100 mg/dl to 125 mg/dl is diagnostic of prediabetes. In a patient with classic symptoms of hyperglycemia or hyperglycemic crisis, a random glucose >/= 200 mg/dl is diagnostic for diabetes. In the absence of unequivocal hyperglycemia, results should be confirmed by repeat testing. The classification and Diagnosis of Diabetes Diabetes Care 202; 46: S19-S40. Current interpretive data was last revised 2022. Calcium 9.0 8.5 - 10.3 mg/dL [facility] Blood 06/23/2024 9:00 AM PRODUCT DEVELOPMENT CHEMIST 06/23/2024 10:59 AM PRODUCT DEVELOPMENT CHEMIST us Patricia Bryant MD LAB BLOOD ORDERABLES Final Res ult Performing Organization Address City/[facility]/ZIP Co de Phone Number [facility] [place] [address] * IR G To GJ-Tube Replacement (06/22/2024 1:24 PM PRODUCT DEVELOPMENT CHEMIST) Anatomical Region Laterality Modality Body N/A X-Ray Angiograph y 06/22/2024 1:47 PM PRODUCT DEVELOPMENT CHEMIST Impressions 06/22/2024 4:13 PM PRODUCT DEVELOPMENT CHEMIST Successful percutaneous 18 Fr 45 cm gastrojejunostomy catheter exchange. PLAN: The catheter is ready for immediate feeding through the jejunal port. Please flush the catheter with 20 cc of water after every feed and every 8 hours. Do not use crushed pills through the jejunal lumen. Dictated by: Dirk Chavez M.D. The radiology attending physician has personally reviewed this study, and had reviewed and/or edited this written report and agrees with it. Electronically signed by: Sean Hillman M.D. 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 ATTENDING PRESENCE: Dr. Sean Hillman M.D., the attending radiologist was present from the beginning to the end of the procedure. SEDATION: The patient did not require conscious sedation for the procedure. TECHNIQUE: Prior to beginning the procedure, Clayton Protocol was performed to confirm the patient's identity and the planned procedure. For procedures that utilize fluoroscopy, the fluoroscopy time has been recorded in the electronic medical record. Maximum sterile barriers including cap, mask, hand hygiene, sterile gloves, sterile gown, large sterile drape and 2% chlorhexidine for cutaneous antisepsis were used. The skin over the stomach and the existing catheter was sterilely prepped, draped and infiltrated with 1% lidocaine. The existing catheter was removed. Using fluoroscopic guidance, a catheter guidewire combination was inserted via the existing gastrostomy tract and successfully passed across the pylorus and placed in the proximal jejunum. A 18 [place], 45 cm long JELLY single/double lumen gastrojejunostomy tube was placed with its tip in the proximal jejunum. Contrast injection confirmed appropriate positioning of the catheter. It was secured to the skin and a dressing applied. ESTIMATED BLOOD LOSS: Minimal CONDITION: Stable condition DISCHARGED TO: patient care division. FINDINGS: Fluoroscopic spot image demonstrates the gastrojejunostomy catheter with its tip in the proximal jejunum. No complications are seen. 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 ATTENDING PRESENCE: Dr. Sean Hillman M.D., the attending radiologist was present from the beginning to the end of the procedure. SEDATION: The patient did not require conscious sedation for the procedure. TECHNIQUE: Prior to beginning the procedure, Clayton Protocol was performed to confirm the patient's identity and the planned procedure. For procedures that utilize fluoroscopy, the fluoroscopy time has been recorded in the electronic medical record. Maximum sterile barriers including cap, mask, hand hygiene, sterile gloves, sterile gown, large sterile drape and 2% chlorhexidine for cutaneous antisepsis were used. The skin over the stomach and the existing catheter was sterilely prepped, draped and infiltrated with 1% lidocaine. The existing catheter was removed. Using fluoroscopic guidance, a catheter guidewire combination was inserted via the existing gastrostomy tract and successfully passed across the pylorus and placed in the proximal jejunum. A 18 [place] Islander, 45 cm long JELLY single/double lumen gastrojejunostomy tube was placed with its tip in the proximal jejunum. Contrast injection confirmed appropriate positioning of the catheter. It was secured to the skin and a dressing applied. ESTIMATED BLOOD LOSS: Minimal CONDITION: Stable condition DISCHARGED TO: patient care division. FINDINGS: Fluoroscopic spot image demonstrates the gastrojejunostomy catheter with its tip in the proximal jejunum. No complications are seen. IMPRESSION: Successful percutaneous 18 Fr 45 cm gastrojejunostomy catheter exchange. PLAN: The catheter is ready for immediate feeding through the jejunal port. Please flush the catheter with 20 cc of water after every feed and every 8 hours. Do not use crushed pills through the jejunal lumen. Dictated by: Dirk Chavez M.D. The radiology attending physician has personally reviewed this study, and had reviewed and/or edited this written report and agrees with it. Electronically signed by: Sean Hillman M.D. us Patricia Bryant MD IMG IR PROCEDURES Final Result * C. difficile testing Stool (06/21/2024 11:11 AM PRODUCT DEVELOPMENT CHEMIST) [facility] Result Negative Negative Toxin Result Negative Negative [facility] C. diff result Negative, free toxin Negative, free toxin [facility] C. diff interp Negative for toxigenic Clostridioides (Clostridium) difficile. Analysis was performed using a glutamate dehydrogenase antigen detection assay combined with a C. difficile toxin detection assay. [facility] Stool 06/21/2024 11:1 1 AM PRODUCT DEVELOPMENT CHEMIST 06/21/2024 12:55 PM PRODUCT DEVELOPMENT CHEMIST Narrative [facility] - 06/21/2024 2:38 PM PRODUCT DEVELOPMENT CHEMIST Testing for C. difficile is not recommended within 4 days of a negative result, 10 days of a positive, or 24 hours after laxative administration. If this order is clinically indicated, contact the lab and enter the passcode to complete this order.->[id number] Patricia Bryant MD LAB MICROBIOLOGY - GENERAL ORD ERABLES Final Result Performing Organization Address City/[facility] Co de Phone Number [facility] [place] [address] * Infection Prevention VRE Culture Stool (06/21/2024 11:10 AM PRODUCT DEVELOPMENT CHEMIST) Report Final Report: Negative Stool 06/21/2024 11:1 0 AM PRODUCT DEVELOPMENT CHEMIST 06/21/2024 2:41 PM PRODUCT DEVELOPMENT CHEMIST Narrative [facility] - 06/23/2024 11:15 PM PRODUCT DEVELOPMENT CHEMIST Surveillance culture for Infection Prevention purposes only; results indicate colonization, not infection requiring treatment. Testing performed by [facility] ([phone]). Patricia Bryant MD LAB MICROBIOLOGY - GENERAL ORD ERABLES Final Result [facility] [place] [employer] [place] [address] * Vancomycin level trough Draw trough 30 minutes prior to 4th dose. (06/21/2024 7:16 AM PRODUCT DEVELOPMENT CHEMIST) Vancomycin trough 16.8 10.0 - 20.0 mcg/mL Blood 06/21/2024 7:16 AM PRODUCT DEVELOPMENT CHEMIST 06/21/2024 7:27 AM PRODUCT DEVELOPMENT CHEMIST Narrative [facility] - 06/21/2024 8:10 AM PRODUCT DEVELOPMENT CHEMIST Draw trough 30 minutes prior to 4th dose. Patricia Bryant MD LAB BLOOD ORDERABLES Final Res ult Performing Organization Address [facility] Co de Phone Number [facility] [place] [address] * eGFR (06/21/2024 5:03 AM PRODUCT DEVELOPMENT CHEMIST) eGFR >90 >=60 mL/min/1. 73 m2 Comment: Interpretive Data Reference Interval Normal >/= 90 mL/min/1.73m2 Mildly decreased* 60 - 89 mL/min/1.73m2 Mildly to moderately decreased 45 - 59 mL/min/1.73m2 Moderately to severely decreased 30 - 44 mL/min/1.73m2 Severely decreased 15 - 29 mL/min/1.73m2 Kidney Failure < 15 mL/min/1.73m2 *Relative to young adult level Estimated glomerular filtration rate is determined by the 2020 CKD-EPI equation recommended by the National Kidney Foundation (A Unifying Approach to GFR Estimation: Recommendations of the NKF-ASK Task Force on Reassessing the Inclusion of Race in Diagnosing Kidney Disease, JASN 2020). The CKD-EPI equation should not be used for patients with unstable renal function and has not been validated in children and those over 70. Current interpretive data was last reviewed 2021. Blood 06/21/2024 5:03 AM PRODUCT DEVELOPMENT CHEMIST 06/21/2024 5:14 AM PRODUCT DEVELOPMENT CHEMIST Patricia Bryant MD LAB BLOOD ORDERABLES Final Res ult Performing Organization Address [facility]/ZIP Co de Phone Number [facility] [place] [address] * Differential, auto (06/21/2024 5:03 AM PRODUCT DEVELOPMENT CHEMIST) Neutrophil abs 1.7 1.5 - 6.5 K/cumm Imm gran abs 0.0 0.0 - 0.1 K/cumm [facility] Lymphocyte abs 1.7 0.8 - 3.3 K/cumm [facility] Monocyte abs 0.6 0.2 - 0.8 K/cumm [facility] Eosinophil abs 0.3 0.0 - 0.5 K/cumm [facility] Basophil abs 0.0 0.0 - 0.1 K/cumm [facility] Neutrophil pct 38.8 % [facility] Comment: Interpretive Data Percent cell count reference ranges are not reported, since discordance with absolute values may lead to misinterpretation of CBC data. Current Interpretive Data was last revised on 2017. Imm gran pct 0.2 % [facility] Comment: Interpretive Data Percent cell count reference ranges are not reported, since discordance with absolute values may lead to misinterpretation of CBC data. Current Interpretive Data was last revised on 2017. Lymphocyte pct 40.5 % [facility] Comment: Interpretive Data Percent cell count reference ranges are not reported, since discordance with absolute values may lead to misinterpretation of CBC data. Current Interpretive Data was last revised on 2017. Monocyte pct 13.4 % [facility] Comment: Interpretive Data Percent cell count reference ranges are not reported, since discordance with absolute values may lead to misinterpretation of CBC data. Current Interpretive Data was last revised on 2017. Eosinophil pct 6.6 % [facility] Comment: Interpretive Data Percent cell count reference ranges are not reported, since discordance with absolute values may lead to misinterpretation of CBC data. Current Interpretive Data was last revised on 2017. Basophil pct 0.5 % [facility] Comment: Interpretive Data Percent cell count reference ranges are not reported, since discordance with absolute values may lead to misinterpretation of CBC data. Current Interpretive Data was last revised on 2017. Blood 06/21/2024 5:03 AM PRODUCT DEVELOPMENT CHEMIST 06/21/2024 5:14 AM PRODUCT DEVELOPMENT CHEMIST us Patricia Bryant MD LAB BLOOD ORDERABLES Final Res ult [facility] [place] [address] * (ABNORMAL) CBC with auto differential (06/21/2024 5:03 AM PRODUCT DEVELOPMENT CHEMIST) [facility] WBC 4.3 3.8 - 9.9 K/cumm Hgb 11.6(L) 13.0 - 17.5 g/dL [facility] Hct 34.5(L) 38.9 - 50.3 % [facility] Plt 132(L) 150 - 400 K/cumm [facility] MPV 11.3 9.1 - 12.3 fL [facility] RBC 3.53(L) 4.30 - 5.80 M/cumm [facility] MCV 97.7(H) 81.3 - 96.4 fL [facility] MCH 32.9 27.1 - 33.3 pg [facility] MCHC 33.6 32.3 - 35.7 g/dL [facility] RDW CV 13.4 11.1 - 14.9 % [facility] RDW SD 48.0 35.7 - 48.1 fL [facility] NRBC abs 0.00 0.00 - 0.01 K/cumm [facility] Blood 06/21/2024 5:03 AM PRODUCT DEVELOPMENT CHEMIST 06/21/2024 5:14 AM PRODUCT DEVELOPMENT CHEMIST us Patricia Bryant MD LAB BLOOD ORDERABLES Final Res ult Performing Organization Address City/[facility]/ZIP Co de Phone Number [facility] [place] [address] * Phosphorus (06/21/2024 5:03 AM PRODUCT DEVELOPMENT CHEMIST) [facility] Phosphorus, pl 3.1 2.3 - 4.5 mg/dL Blood 06/21/2024 5:03 AM PRODUCT DEVELOPMENT CHEMIST 06/21/2024 5:14 AM PRODUCT DEVELOPMENT CHEMIST Patricia Bryant MD LAB BLOOD ORDERABLES Final Res ult [facility] [place] [address] * Magnesium (06/21/2024 5:03 AM PRODUCT DEVELOPMENT CHEMIST) [facility] Magnesium 1.9 1.4 - 2.5 mg/dL Blood 06/21/2024 5:03 AM PRODUCT DEVELOPMENT CHEMIST 06/21/2024 5:14 AM PRODUCT DEVELOPMENT CHEMIST Patricia Bryant MD LAB BLOOD ORDERABLES Final Res ult [facility] [place] [address] * (ABNORMAL) Comprehensive metabolic panel (06/21/2024 5:03 AM PRODUCT DEVELOPMENT CHEMIST) [facility] Sodium 145 135 - 145 mmol/L Potassium, pl 3.4 3.3 - 4.9 mmol/L [facility] Chloride 112(H) 97 - 110 mmol/L [facility] CO2 27 22 - 32 mmol/L [facility] Anion gap 6 2 - 15 mmol/L [facility] BUN 9 6 - 25 mg/dL [facility] Creatinine 0.57(L) 0.80 - 1.30 mg/dL [facility] Glucose 106 70 - 199 mg/dL [facility] Comment: Interpretive Data Fasting glucose >/= 126 mg/dl is diagnostic for diabetes. Fasting is defined as no caloric intake for at least 8 hours. Fasting glucose between 100 mg/dl to 125 mg/dl is diagnostic of prediabetes. In a patient with classic symptoms of hyperglycemia or hyperglycemic crisis, a random glucose >/= 200 mg/dl is diagnostic for diabetes. In the absence of unequivocal hyperglycemia, results should be confirmed by repeat testing. The classification and Diagnosis of Diabetes Diabetes Care 202; 46: S19-S40. Current interpretive data was last revised 2022. Calcium 8.6 8.5 - 10.3 mg/dL [facility] Bilirubin, total 0.2 0.1 - 1.2 mg/dL [facility] Protein, pl 5.6(L) 6.5 - 8.5 g/dL [facility] Albumin 2.7(L) 3.5 - 5.0 g/dL [facility] Alk phos 61 40 - 130 Units/L [facility] ALT 15 7 - 55 Units/L [facility] AST 25 10 - 50 Units/L [facility] Blood 06/21/2024 5:03 AM PRODUCT DEVELOPMENT CHEMIST 06/21/2024 5:14 AM PRODUCT DEVELOPMENT CHEMIST Patricia Bryant MD LAB BLOOD ORDERABLES Final Res ult Performing Organization Address [facility] Co de Phone Number [facility] [place] [address] * (ABNORMAL) MSSA/MRSA (Staphylococcus aureus) Culture Nasal (06/20/2024 10:30 PM PRODUCT DEVELOPMENT CHEMIST) Report Final Report: Methicillin-resist ant Staphylococcus aureus Methicillin-resist ant Staphylococcus aureus #2 (.) Organism METHICILLIN-RESIST ANT STAPHYLOCOCCUS AUREUS [facility] Organism METHICILLIN-RESIST ANT STAPHYLOCOCCUS AUREUS [facility] Nasal 06/20/2024 10:3 0 PM PRODUCT DEVELOPMENT CHEMIST 06/20/2024 10:43 PM PRODUCT DEVELOPMENT CHEMIST Narrative [facility] - 06/23/2024 10:45 AM PRODUCT DEVELOPMENT CHEMIST Testing performed by [facility] ([phone]). Patricia Bryant MD LAB MICROBIOLOGY - GENERAL ORD ERABLES Final Result Performing Organization Address [facility] Co de Phone Number [facility] [place] [address] * XR Abdomen Ap 1 Vw (06/20/2024 10:29 AM PRODUCT DEVELOPMENT CHEMIST) Anatomical Region Laterality Modality Body, Abdomen N/A Computed Radiogr aphy 06/20/2024 10:5 3 AM PRODUCT DEVELOPMENT CHEMIST Impressions 06/20/2024 11:51 AM PRODUCT DEVELOPMENT CHEMIST Gastrostomy tube. Colonic distention is improved. No radiographic evidence of obstruction. Dictated by: Hunter Hernandez M.D. (Ramanan) The radiology attending physician has personally reviewed this study, and had reviewed and/or edited this written report and agrees with it. Electronically signed by: Byron Moya M.D. Narrative 06/20/2024 11:51 AM PRODUCT DEVELOPMENT CHEMIST EXAMINATION: Abdomen, one view. HISTORY: Abdominal distention. Follow-up for ileus. COMPARISON: 06/19/2024 radiographs, 06/12/2024 CT. Procedure Note Byron Moya MD - 06/20/2024 EXAMINATION: Abdomen, one view. HISTORY: Abdominal distention. Follow-up for ileus. COMPARISON: 06/19/2024 radiographs, 06/12/2024 CT. IMPRESSION: Gastrostomy tube. Colonic distention is improved. No radiographic evidence of obstruction. Dictated by: Hunter Hernandez M.D. (Ramanan) The radiology attending physician has personally reviewed this study, and had reviewed and/or edited this written report and agrees with it. Electronically signed by: Byron Moya M.D. Patricia Bryant MD IMG XR PROCEDURES Final Result * (ABNORMAL) Urinalysis reflex to microscopic and culture Urine, bladder (06/19/2024 9:34 PM PRODUCT DEVELOPMENT CHEMIST) Color, ur Straw Yellow Clarity, ur Clear Clear [facility] Specific gravity, ur 1.021 1.003 - 1.030 [facility] pH, urine 7.0 [facility] Comment: Interpretive Data U rine pH is affected by diet, medications, systemic acid-base disturbances, and renal tubular function. pH may affect urinary stone formation. For example, urine pH below 6.0 may help reduce the tendency for calcium phosphate stones and pH greater than 6.0 may reduce the tendency for uric acid stone formation. Source: elarm Current Interpretive Data was last revised on 2017 Protein, ur ql 1+(A) Negative [facility] Glucose, ur ql Negative Negative [facility] Ketones, ur Negative Negative [facility] Bilirubin, ur Negative Negative [facility] Blood, ur Negative Negative [facility] Urobilinogen, ur <2.0 <2.0 mg/dL [facility] Nitrite, ur Negative Negative [facility] Leukocyte esterase, ur Negative Negative [facility] UA reflex comment Reflex to microscopic UA will be performed. [facility] Urine, bladder 06/19/2024 9: 34 PM PRODUCT DEVELOPMENT CHEMIST 06/19/2024 10:05 PM PRODUCT DEVELOPMENT CHEMIST Patricia Bryant MD LAB MICROBIOLOGY - GENERAL ORD ERABLES Final Result Performing Organization Address [facility] Co de Phone Number [facility] [place] [address] * Urinalysis, microscopic only (06/19/2024 9:34 PM PRODUCT DEVELOPMENT CHEMIST) Pathologist [facility] [place] WBC, ur 0-5 0 - 5 /HPF RBC, ur 0-2 0 - 2 /HPF [facility] Epithelial cells, squamous, ur 1-5 0 - 5 /HPF [facility] Culture Reflex Comment Reflex conditions for urine culture (WBC >10) not met. [facility] Urine, bladder 06/19/2024 9: 34 PM PRODUCT DEVELOPMENT CHEMIST 06/19/2024 10:05 PM PRODUCT DEVELOPMENT CHEMIST Patricia Bryant MD LAB URINE ORDERABLES Final Res ult Performing Organization Address [facility] Co de Phone Number [facility] Department [place] [address] * (ABNORMAL) Differential, auto (06/19/2024 9:28 PM PRODUCT DEVELOPMENT CHEMIST) Neutrophil abs 6.0 1.5 - 6.5 K/cumm Imm gran abs 0.0 0.0 - 0.1 K/cumm [facility] Lymphocyte abs 0.7(L) 0.8 - 3.3 K/cumm [facility] Monocyte abs 0.2 0.2 - 0.8 K/cumm [facility] Eosinophil abs 0.2 0.0 - 0.5 K/cumm [facility] Basophil abs 0.0 0.0 - 0.1 K/cumm [facility] Neutrophil pct 84.1 % [facility] Comment: Interpretive Data Percent cell count reference ranges are not reported, since discordance with absolute values may lead to misinterpretation of CBC data. Current Interpretive Data was last revised on 2017. Imm gran pct 0.4 % [facility] Comment: Interpretive Data Percent cell count reference ranges are not reported, since discordance with absolute values may lead to misinterpretation of CBC data. Current Interpretive Data was last revised on 2017. Lymphocyte pct 10.1 % [facility] Comment: Interpretive Data Percent cell count reference ranges are not reported, since discordance with absolute values may lead to misinterpretation of CBC data. Current Interpretive Data was last revised on 2017. Monocyte pct 2.9 % [facility] Comment: Interpretive Data Percent cell count reference ranges are not reported, since discordance with absolute values may lead to misinterpretation of CBC data. Current Interpretive Data was last revised on 2017. Eosinophil pct 2.4 % [facility] Comment: Interpretive Data Percent cell count reference ranges are not reported, since discordance with absolute values may lead to misinterpretation of CBC data. Current Interpretive Data was last revised on 2017. Basophil pct 0.1 % [facility] Comment: Interpretive Data Percent cell count reference ranges are not reported, since discordance with absolute values may lead to misinterpretation of CBC data. Current Interpretive Data was last revised on 2017. Blood 06/19/2024 9:28 PM PRODUCT DEVELOPMENT CHEMIST 06/19/2024 10:38 PM PRODUCT DEVELOPMENT CHEMIST us Patricia Bryant MD LAB BLOOD ORDERABLES Final Res ult [facility] Department [place] [address] * Lacosamide level (06/19/2024 9:28 PM PRODUCT DEVELOPMENT CHEMIST) Lacosamide 9.6 1.0 - 10.0 mcg/mL [facility] Comment: ADDITIONAL INFORMATION This test was developed and its performance characteristics determined by [facility] in a manner consistent with CLIA requirements. This test has not been cleared or approved by the U.S. Food and Drug Administration. Test Performed by: [facility] [address] [place] [address] Concrete Foreman: Marianela Odonnell Ph.D.; CLIA# [id number] Blood 06/19/2024 9:28 PM PRODUCT DEVELOPMENT CHEMIST 06/19/2024 11:01 PM PRODUCT DEVELOPMENT CHEMIST Narrative [facility] - 06/22/2024 10:25 AM PRODUCT DEVELOPMENT CHEMIST Please get level before lacosamide dose is given us Patricia Bryant MD LAB BLOOD ORDERABLES Final Res ult [facility] Department [place] [address] [facility] * (ABNORMAL) CBC with auto differential (06/19/2024 9:28 PM PRODUCT DEVELOPMENT CHEMIST) WBC 7.1 3.8 - 9.9 K/cumm Hgb 12.5(L) 13.0 - 17.5 g/dL [facility] Hct 37.0(L) 38.9 - 50.3 % [facility] Plt 152 150 - 400 K/cumm [facility] MPV 12.6(H) 9.1 - 12.3 fL [facility] RBC 3.90(L) 4.30 - 5.80 M/cumm [facility] MCV 94.9 81.3 - 96.4 fL [facility] MCH 32.1 27.1 - 33.3 pg [facility] MCHC 33.8 32.3 - 35.7 g/dL [facility] RDW CV 13.4 11.1 - 14.9 % [facility] RDW SD 46.8 35.7 - 48.1 fL [facility] NRBC abs 0.00 0.00 - 0.01 K/cumm [facility] Blood 06/19/2024 9:28 PM PRODUCT DEVELOPMENT CHEMIST 06/19/2024 10:38 PM PRODUCT DEVELOPMENT CHEMIST Patricia Bryant MD LAB BLOOD ORDERABLES Final Res ult Performing Organization Address City/[facility]/ZIP Co de Phone Number [facility] [place] [address] * Valproic acid level, total (06/19/2024 9:28 PM PRODUCT DEVELOPMENT CHEMIST) [facility] Valproic Acid 76.0 50.0 - 100.0 mcg/mL Comment: Interpretive Data Therapeutic or toxic effects of anticonvulsant drugs may occur at different concentrations in different patients and the correlation between dose and clinical effect must be evaluated individually. Current interpretative data was last revised on 13. Blood 06/19/2024 9:28 PM PRODUCT DEVELOPMENT CHEMIST 06/19/2024 10:39 PM PRODUCT DEVELOPMENT CHEMIST Narrative [facility] - 06/19/2024 11:40 PM PRODUCT DEVELOPMENT CHEMIST Please get level before dose is given Patricia Bryant MD LAB BLOOD ORDERABLES Final Res ult [facility] [place] [address] * Respiratory pathogen panel Nasopharyngeal (06/19/2024 9:10 PM PRODUCT DEVELOPMENT CHEMIST) [facility] Influenza A RNA Not Detected Not Detected Influenza B RNA Not Detected Not Detected [facility] RSV RNA Not Detected Not Detected [facility] COVID-19 RNA Not Detected Not Detected [facility] Coronavirus 229E RNA Not Detected Not Detected [facility] Coronavirus HKU1 RNA Not Detected Not Detected [facility] Coronavirus NL63 RNA Not Detected Not Detected [facility] Coronavirus OC43 RNA Not Detected Not Detected [facility] Adenovirus DNA Not Detected Not Detected [facility] Metapneumovirus RNA Not Detected Not Detected [facility] Rhinovirus/Enterov irus RNA Not Detected Not Detected [facility] Parainfluenza 1 RNA Not Detected Not Detected [facility] Parainfluenza 2 RNA Not Detected Not Detected [facility] Parainfluenza 3 RNA Not Detected Not Detected [facility] Parainfluenza 4 RNA Not Detected Not Detected [facility] B. pertussis DNA Not Detected Not Detected [facility] B. parapertussis DNA Not Detected Not Detected [facility] C. pneumoniae DNA Not Detected Not Detected [facility] M. pneumoniae DNA Not Detected Not Detected [facility] Nasopharyngeal 06/19/2024 9: 10 PM PRODUCT DEVELOPMENT CHEMIST 06/19/2024 10:06 PM PRODUCT DEVELOPMENT CHEMIST Narrative [facility] - 06/19/2024 11:35 PM PRODUCT DEVELOPMENT CHEMIST Is the Patient experiencing symptoms consistent with COVID?->Yes Surveillance testing for transplant patient?->No Interpretive Data The [employer]nergy FilmArray Respiratory Panel (RP2.1) assay is a multiplexed real-time PCR based nucleic acid test capable of simultaneous qualitative detection and identification of multiple respiratory viral and bacterial nucleic acids, including SARS Coronavirus 2 (the causative agent of COVID-19). The following bacteria, viruses and virus subtypes can be identified using the FilmArray RP2.1 assay: Bordetella pertussis, Bordetella parapertussis, Chlamydia pneumoniae, Mycoplasma pneumoniae, Adenovirus, SARS Coronavirus 2, seasonal coronaviruses (Coronavirus HKU1, Coronavirus NL63, Coronavirus 229E, and Coronavirus OC43), Influenza A, Influenza A subtype H1, Influenza A subtype H3, Influenza A subtype 2009 H1, Influenza B, Metapneumovirus, Parainfluenza 1, Parainfluenza 2, Parainfluenza 3, Parainfluenza 4, RSV, Rhinovirus/Enterovirus. Due to the genetic similarity between human Rhinovirus and Enterovirus, the FilmArray RP2.1 assay cannot reliably differentiate them. Coronavirus OC43 may cross-react with some isolates of Coronavirus HKU1. A dual positive result may be due to cross-reactivity or may indicate a co- infection. The detection and identification of specific viral and bacterial nucleic acids from individuals exhibiting signs and symptoms of a respiratory infection aids in the diagnosis of respiratory infection if used in conjunction with other clinical and epidemiological information. The results of this test should not be used as the sole basis for diagnosis, treatment, or other management decisions. Negative results in the setting of a respiratory illness may be due to infection with pathogens that are not detected by this test. Positive results do not rule out infection/co-infection with other organisms. The agent(s) detected by the FilmArray RP2.1 may not be the definite cause of disease. Additional testing (lab, imaging, etc.) may be necessary when evaluating a patient with possible respiratory tract infection. The FilmArray RP2.1 assay has FDA clearance for testing of [employer] swabs. The performance of additional specimen types has been assessed by the performing laboratory. The performance characteristics of this assay have been determined by [facility] Disease [facility]. Current interpretive data was last revised on 22. Patricia Bryant MD LAB MICROBIOLOGY - GENERAL ORD ERABLES Final Result [facility] Department [place] [address] * (ABNORMAL) Aerobic culture and gram stain Tracheal aspirate Tracheal (06/19/2024 6:53 PM PRODUCT DEVELOPMENT CHEMIST) Direct Specimen Exam Stain: Abundant polymorphonuclear leukocytes seen. Few squamous epithelial cells seen. Moderate mixed bacterial domenico seen on Gram stain. Report Final Report: Greater than or equal to 100,000 colonies/ml of Staphylococcus aureus Methicillin resistant (MRSA) by penicillin binding protein 2a (PBP2a) testing. Plus growth of clinically insignificant bacterial domenico. (.) [facility] Organism STAPHYLOCOCCUS AUREUS [facility] Organism PLUS GROWTH OF CLINICALLY INSIGNIFICANT DOMENICO. [facility] Tracheal aspirate (Tracheal) 06/19/2024 6:53 PM PRODUCT DEVELOPMENT CHEMIST 06/19/2024 8:18 PM PRODUCT DEVELOPMENT CHEMIST Narrative [facility] - 06/27/2024 2:52 PM PRODUCT DEVELOPMENT CHEMIST Testing performed by [facility] ([phone]) Specimens submitted from normally sterile body sites will have all bacterial morphotypes identified. Specimens that contain grossly mixed domenico and/or are from body sites that are not normally sterile will be examined for Staphylococcus aureus, Pseudomonas aeruginosa, beta-hemolytic strep, vancomycin-resistant Enterococcus and fungus. If any of these are isolated, the organism will be reported. Current interpretive data was last revised on 2016. Organism Antibiotic Method Susceptibility Staphylococcus aureus Vancomycin INTERPRETATION Susceptible Staphylococcus aureus Ceftaroline INTERPRETATION Susceptible Staphylococcus aureus Trimethoprim with Sulfamethoxazole INTERPRETATION Susceptible Staphylococcus aureus Linezolid INTERPRETATION Susceptible Staphylococcus aureus Doxycycline INTERPRETATION Susceptible Staphylococcus aureus Clindamycin INTERPRETATION Resistant Staphylococcus aureus Erythromycin INTERPRETATION Resistant Staphylococcus aureus Oxacillin INTERPRETATION Resistant Staphylococcus aureus Cefazolin INTERPRETATION Resistant Staphylococcus aureus Ceftriaxone INTERPRETATION Resistant Patricia Bryant MD LAB MICROBIOLOGY - GENERAL ORD ERABLES Final Result [facility] [place] [address] * XR Chest 1 View (06/19/2024 6:47 PM PRODUCT DEVELOPMENT CHEMIST) Anatomical Region Laterality Modality Body, Chest N/A Digital Radiogra phy 06/20/2024 2:42 PM PRODUCT DEVELOPMENT CHEMIST Impressions 06/20/2024 3:15 PM PRODUCT DEVELOPMENT CHEMIST Comparison is made to 06/19/2024 at 3:32 PM. Tracheostomy tube in place. Unchanged linear streaky opacities in the bilateral lungs likely represent mild atelectasis. No consolidation. No pleural effusion or pneumothorax. Cardiac mediastinal silhouette is unchanged. Dictated by: Ricci Rothman M.D. The radiology attending physician has personally reviewed this study, and had reviewed and/or edited this written report and agrees with it. Electronically signed by: Herve Payne M.D. Narrative 06/20/2024 3:15 PM PRODUCT DEVELOPMENT CHEMIST EXAMINATION: 1 view chest radiograph Procedure Note Herve Payne MD - 06/20/2024 EXAMINATION: 1 view chest radiograph IMPRESSION: Comparison is made to 06/19/2024 at 3:32 PM. Tracheostomy tube in place. Unchanged linear streaky opacities in the bilateral lungs likely represent mild atelectasis. No consolidation. No pleural effusion or pneumothorax. Cardiac mediastinal silhouette is unchanged. Dictated by: Ricci Rothman M.D. The radiology attending physician has personally reviewed this study, and had reviewed and/or edited this written report and agrees with it. Electronically signed by: Herve Payne M.D. Patricia Bryant MD IMG XR PROCEDURES Final Result * Respiratory pathogen panel Tracheal aspirate (06/19/2024 6:46 PM PRODUCT DEVELOPMENT CHEMIST) Pathologist [facility] Influenza A RNA Not Detected Not Detected Influenza B RNA Not Detected Not Detected [facility] RSV RNA Not Detected Not Detected [facility] COVID-19 RNA Not Detected Not Detected [facility] Coronavirus 229E RNA Not Detected Not Detected [facility] Coronavirus HKU1 RNA Not Detected Not Detected [facility] Coronavirus NL63 RNA Not Detected Not Detected [facility] Coronavirus OC43 RNA Not Detected Not Detected [facility] Adenovirus DNA Not Detected Not Detected [facility] Metapneumovirus RNA Not Detected Not Detected [facility] Rhinovirus/Enterov irus RNA Not Detected Not Detected [facility] Parainfluenza 1 RNA Not Detected Not Detected [facility] Parainfluenza 2 RNA Not Detected Not Detected [facility] Parainfluenza 3 RNA Not Detected Not Detected [facility] Parainfluenza 4 RNA Not Detected Not Detected [facility] B. pertussis DNA Not Detected Not Detected [facility] B. parapertussis DNA Not Detected Not Detected [facility] C. pneumoniae DNA Not Detected Not Detected [facility] M. pneumoniae DNA Not Detected Not Detected [facility] Tracheal aspirate 06/19/2024 6:46 PM PRODUCT DEVELOPMENT CHEMIST 06/20/2024 7:55 AM PRODUCT DEVELOPMENT CHEMIST Narrative [facility] - 06/20/2024 8:58 AM PRODUCT DEVELOPMENT CHEMIST Is the Patient experiencing symptoms consistent with COVID?->Yes Surveillance testing for transplant patient?->No Interpretive Data The [employer] FilmArray Respiratory Panel (RP2.1) assay is a multiplexed real-time PCR based nucleic acid test capable of simultaneous qualitative detection and identification of multiple respiratory viral and bacterial nucleic acids, including SARS Coronavirus 2 (the causative agent of COVID-19). The following bacteria, viruses and virus subtypes can be identified using the FilmArray RP2.1 assay: Bordetella pertussis, Bordetella parapertussis, Chlamydia pneumoniae, Mycoplasma pneumoniae, Adenovirus, SARS Coronavirus 2, seasonal coronaviruses (Coronavirus HKU1, Coronavirus NL63, Coronavirus 229E, and Coronavirus OC43), Influenza A, Influenza A subtype H1, Influenza A subtype H3, Influenza A subtype 2009 H1, Influenza B, Metapneumovirus, Parainfluenza 1, Parainfluenza 2, Parainfluenza 3, Parainfluenza 4, RSV, Rhinovirus/Enterovirus. Due to the genetic similarity between human Rhinovirus and Enterovirus, the FilmArray RP2.1 assay cannot reliably differentiate them. Coronavirus OC43 may cross-react with some isolates of Coronavirus HKU1. A dual positive result may be due to cross-reactivity or may indicate a co- infection. The detection and identification of specific viral and bacterial nucleic acids from individuals exhibiting signs and symptoms of a respiratory infection aids in the diagnosis of respiratory infection if used in conjunction with other clinical and epidemiological information. The results of this test should not be used as the sole basis for diagnosis, treatment, or other management decisions. Negative results in the setting of a respiratory illness may be due to infection with pathogens that are not detected by this test. Positive results do not rule out infection/co-infection with other organisms. The agent(s) detected by the FilmArray RP2.1 may not be the definite cause of disease. Additional testing (lab, imaging, etc.) may be necessary when evaluating a patient with possible respiratory tract infection. The FilmArray RP2.1 assay has FDA clearance for testing of [employer] swabs. The performance of additional specimen types has been assessed by the performing laboratory. The performance characteristics of this assay have been determined by [facility] Infectious Disease [facility]. Current interpretive data was last revised on 22. Patricia Bryant MD LAB MICROBIOLOGY - GENERAL ORD ERABLES Final Result [facility] Department [place] [address] * XR Abdomen Ap 1 Vw (06/19/2024 4:09 PM PRODUCT DEVELOPMENT CHEMIST) Anatomical Region Laterality Modality Body, Abdomen N/A Digital Radiogra phy 06/19/2024 4:35 PM PRODUCT DEVELOPMENT CHEMIST Impressions 06/19/2024 5:03 PM PRODUCT DEVELOPMENT CHEMIST Diffuse mild gaseous bowel distention, similar to the prior exam and could represent ileus. Partially imaged gastrostomy tube. Dictated by: Hunter Hernandez M.D. (Ramanan) The radiology attending physician has personally reviewed this study, and had reviewed and/or edited this written report and agrees with it. Electronically signed by: Lupillo Lugo M.D. Narrative 06/19/2024 5:03 PM PRODUCT DEVELOPMENT CHEMIST EXAMINATION: Abdomen, one view. HISTORY: Abdominal pain secondary to constipation, ileus. COMPARISON: 06/16/2024 radiographs Procedure Note Lupillo Lugo MD - 06/19/2024 EXAMINATION: Abdomen, one view. HISTORY: Abdominal pain secondary to constipation, ileus. COMPARISON: 06/16/2024 radiographs IMPRESSION: Diffuse mild gaseous bowel distention, similar to the prior exam and could represent ileus. Partially imaged gastrostomy tube. Dictated by: Hunter Hernandez M.D. (Ramanan) The radiology attending physician has personally reviewed this study, and had reviewed and/or edited this written report and agrees with it. Electronically signed by: Lupillo Lugo M.D. Patricia Bryant MD IMG XR PROCEDURES Final Result * XR Chest 1 View (06/19/2024 4:08 PM PRODUCT DEVELOPMENT CHEMIST) Anatomical Region Laterality Modality Body, Chest N/A Digital Radiogra phy 06/19/2024 4:21 PM PRODUCT DEVELOPMENT CHEMIST Impressions 06/19/2024 4:21 PM PRODUCT DEVELOPMENT CHEMIST The current study is compared with the prior radiograph dated 06/12/[address] The heart and mediastinal contours are normal. There is no mass or consolidation. There is no lymphadenopathy. There are no pleural effusions. There is no pneumothorax. There are small lung volumes, as a consequence there is both vascular crowding and atelectasis. Electronically signed by: Elif Patel M.D. Narrative 06/19/2024 4:21 PM PRODUCT DEVELOPMENT CHEMIST EXAMINATION: 1 view chest radiograph Procedure Note Elif Patel MD - 06/19/2024 EXAMINATION: 1 view chest radiograph IMPRESSION: The current study is compared with the prior radiograph dated 06/12/[address] The heart and mediastinal contours are normal. There is no mass or consolidation. There is no lymphadenopathy. There are no pleural effusions. There is no pneumothorax. There are small lung volumes, as a consequence there is both vascular crowding and atelectasis. Electronically signed by: Elif Patel M.D. Patricia Bryant MD IMG XR PROCEDURES Final Result * eGFR (06/19/2024 2:47 PM PRODUCT DEVELOPMENT CHEMIST) eGFR >90 >=60 mL/min/1. 73 m2 Comment: Interpretive Data Reference Interval Normal >/= 90 mL/min/1.73m2 Mildly decreased* 60 - 89 mL/min/1.73m2 Mildly to moderately decreased 45 - 59 mL/min/1.73m2 Moderately to severely decreased 30 - 44 mL/min/1.73m2 Severely decreased 15 - 29 mL/min/1.73m2 Kidney Failure < 15 mL/min/1.73m2 *Relative to young adult level Estimated glomerular filtration rate is determined by the 2020 CKD-EPI equation recommended by the [employer] (A Unifying Approach to GFR Estimation: Recommendations of the NKF-ASK Task Force on Reassessing the Inclusion of Race in Diagnosing Kidney Disease, JASN 2020). The CKD-EPI equation should not be used for patients with unstable renal function and has not been validated in children and those over 70. Current interpretive data was last reviewed 2021. Blood 06/19/2024 2:47 PM PRODUCT DEVELOPMENT CHEMIST 06/19/2024 3:03 PM PRODUCT DEVELOPMENT CHEMIST Patricia Bryant MD LAB BLOOD ORDERABLES Final Res ult [facility] Department of Laboratories [place], [place] [id number] * Differential, auto (06/19/2024 2:47 PM PRODUCT DEVELOPMENT CHEMIST) Neutrophil abs 5.5 1.5 - 6.5 K/cumm Imm gran abs 0.0 0.0 - 0.1 K/cumm [facility] Lymphocyte abs 0.9 0.8 - 3.3 K/cumm [facility] Monocyte abs 0.2 0.2 - 0.8 K/cumm [facility] Eosinophil abs 0.3 0.0 - 0.5 K/cumm [facility] Basophil abs 0.0 0.0 - 0.1 K/cumm [facility] Neutrophil pct 79.8 % [facility] Comment: Interpretive Data Percent cell count reference ranges are not reported, since discordance with absolute values may lead to misinterpretation of CBC data. Current Interpretive Data was last revised on 2017. Imm gran pct 0.4 % [facility] Comment: Interpretive Data Percent cell count reference ranges are not reported, since discordance with absolute values may lead to misinterpretation of CBC data. Current Interpretive Data was last revised on 2017. Lymphocyte pct 13.4 % [facility] Comment: Interpretive Data Percent cell count reference ranges are not reported, since discordance with absolute values may lead to misinterpretation of CBC data. Current Interpretive Data was last revised on 2017. Monocyte pct 2.5 % [facility] Comment: Interpretive Data Percent cell count reference ranges are not reported, since discordance with absolute values may lead to misinterpretation of CBC data. Current Interpretive Data was last revised on 2017. Eosinophil pct 3.8 % [facility] Comment: Interpretive Data Percent cell count reference ranges are not reported, since discordance with absolute values may lead to misinterpretation of CBC data. Current Interpretive Data was last revised on 2017. Basophil pct 0.1 % [facility] Comment: Interpretive Data Percent cell count reference ranges are not reported, since discordance with absolute values may lead to misinterpretation of CBC data. Current Interpretive Data was last revised on 2017. Blood 06/19/2024 2:47 PM PRODUCT DEVELOPMENT CHEMIST 06/19/2024 3:04 PM PRODUCT DEVELOPMENT CHEMIST us Patricia Bryant MD LAB BLOOD ORDERABLES Final Res ult [facility] Department [place] [address] * (ABNORMAL) CBC with auto differential (06/19/2024 2:47 PM PRODUCT DEVELOPMENT CHEMIST) [facility] WBC 6.9 3.8 - 9.9 K/cumm Hgb 14.2 13.0 - 17.5 g/dL [facility] Hct 42.4 38.9 - 50.3 % [facility] Plt 135(L) 150 - 400 K/cumm [facility] MPV 12.6(H) 9.1 - 12.3 fL [facility] RBC 4.47 4.30 - 5.80 M/cumm [facility] MCV 94.9 81.3 - 96.4 fL [facility] MCH 31.8 27.1 - 33.3 pg [facility] MCHC 33.5 32.3 - 35.7 g/dL [facility] RDW CV 13.2 11.1 - 14.9 % [facility] RDW SD 46.5 35.7 - 48.1 fL [facility] NRBC abs 0.00 0.00 - 0.01 K/cumm [facility] Blood 06/19/2024 2:47 PM PRODUCT DEVELOPMENT CHEMIST 06/19/2024 3:04 PM PRODUCT DEVELOPMENT CHEMIST Patricia Bryant MD LAB BLOOD ORDERABLES Final Res ult Performing Organization Address City/[facility]/ZIP Co de Phone Number [facility] Department [place] [address] * (ABNORMAL) Phosphorus (06/19/2024 2:47 PM PRODUCT DEVELOPMENT CHEMIST) [facility] Phosphorus, pl 2.2(L) 2.3 - 4.5 mg/dL Blood 06/19/2024 2:47 PM PRODUCT DEVELOPMENT CHEMIST 06/19/2024 3:03 PM PRODUCT DEVELOPMENT CHEMIST Patricia Bryant MD LAB BLOOD ORDERABLES Final Res ult [facility] [place] [address] * Magnesium (06/19/2024 2:47 PM PRODUCT DEVELOPMENT CHEMIST) Pathologist [facility] Magnesium 2.0 1.4 - 2.5 mg/dL Blood 06/19/2024 2:47 PM PRODUCT DEVELOPMENT CHEMIST 06/19/2024 3:03 PM PRODUCT DEVELOPMENT CHEMIST Patricia Bryant MD LAB BLOOD ORDERABLES Final Res ult [facility] [place] [address] * (ABNORMAL) Comprehensive metabolic panel (06/19/2024 2:47 PM PRODUCT DEVELOPMENT CHEMIST) [facility] Sodium 144 135 - 145 mmol/L Potassium, pl 3.9 3.3 - 4.9 mmol/L [facility] Comment:Hemolyzed; Potassium value may be falsely elevated by as much as 0.3-0.5 mmol/L. Suggest redraw and reanalysis. Chloride 105 97 - 110 mmol/L [facility] CO2 29 22 - 32 mmol/L [facility] Anion gap 10 2 - 15 mmol/L [facility] BUN 7 6 - 25 mg/dL [facility] Creatinine 0.62(L) 0.80 - 1.30 mg/dL [facility] Glucose 113 70 - 199 mg/dL [facility] Comment: Interpretive Data Fasting glucose >/= 126 mg/dl is diagnostic for diabetes. Fasting is defined as no caloric intake for at least 8 hours. Fasting glucose between 100 mg/dl to 125 mg/dl is diagnostic of prediabetes. In a patient with classic symptoms of hyperglycemia or hyperglycemic crisis, a random glucose >/= 200 mg/dl is diagnostic for diabetes. In the absence of unequivocal hyperglycemia, results should be confirmed by repeat testing. The classification and Diagnosis of Diabetes Diabetes Care 2021; 46: S19-S40. Current interpretive data was last revised 2022. Calcium 9.5 8.5 - 10.3 mg/dL [facility] Bilirubin, total 0.2 0.1 - 1.2 mg/dL [facility] Protein, pl 7.2 6.5 - 8.5 g/dL [facility] Albumin 3.7 3.5 - 5.0 g/dL [facility] Alk phos 91 40 - 130 Units/L [facility] ALT 13 7 - 55 Units/L [facility] AST 28 10 - 50 Units/L [facility] Comment:Hemolyzed; result ma y be falsely elevated Blood 06/19/2024 2:47 PM PRODUCT DEVELOPMENT CHEMIST 06/19/2024 3:03 PM PRODUCT DEVELOPMENT CHEMIST Patricia Bryant MD LAB BLOOD ORDERABLES Final Res ult Performing Organization Address City/[facility]/ZIP Co de Phone Number [facility] Department [place] [address] * POCT glucose (06/19/2024 2:25 PM PRODUCT DEVELOPMENT CHEMIST) Glucose, POC 125 70 - 199 mg/dL Blood 06/19/2024 2:25 PM PRODUCT DEVELOPMENT CHEMIST 06/19/2024 2:25 PM PRODUCT DEVELOPMENT CHEMIST Patricia Bryant MD LAB POCT ORDERABLES - DEVICE F inal Result Performing Organization Address [facility] Co de Phone Number [facility] Department [place] [address] * XR Abdomen Ap 1 Vw (06/16/2024 6:16 PM PRODUCT DEVELOPMENT CHEMIST) Anatomical Region Laterality Modality Body, Abdomen N/A Computed Radiogr aphy 06/16/2024 6:56 PM PRODUCT DEVELOPMENT CHEMIST Impressions 06/16/2024 6:56 PM PRODUCT DEVELOPMENT CHEMIST Gastrostomy tube is present. Aerated bowel seen throughout the abdomen. The gaseous distention is improved from the prior examination. Distal rectal air is not definitively visualized. No pneumoperitoneum. Electronically signed by: Sekou Wolf M.D. Narrative 06/16/2024 6:56 PM PRODUCT DEVELOPMENT CHEMIST EXAMINATION: Abdomen, one view. HISTORY: Abdominal distension. COMPARISON: 06/15/2024 Procedure Note Sekou Wolf MD - 06/16/2024 EXAMINATION: Abdomen, one view. HISTORY: Abdominal distension. COMPARISON: 06/15/2024 IMPRESSION: Gastrostomy tube is present. Aerated bowel seen throughout the abdomen. The gaseous distention is improved from the prior examination. Distal rectal air is not definitively visualized. No pneumoperitoneum. Electronically signed by: Sekou Wolf M.D. us Misael Felix MD IMG XR PROCEDURES Final Res ult * eGFR (06/16/2024 12:42 PM PRODUCT DEVELOPMENT CHEMIST) eGFR >90 >=60 mL/min/1. 73 m2 Comment: Interpretive Data Reference Interval Normal >/= 90 mL/min/1.73m2 Mildly decreased* 60 - 89 mL/min/1.73m2 Mildly to moderately decreased 45 - 59 mL/min/1.73m2 Moderately to severely decreased 30 - 44 mL/min/1.73m2 Severely decreased 15 - 29 mL/min/1.73m2 Kidney Failure < 15 mL/min/1.73m2 *Relative to young adult level Estimated glomerular filtration rate is determined by the 2020 CKD-EPI equation recommended by the National Kidney Foundation (A Unifying Approach to GFR Estimation: Recommendations of the NKF-ASK Task Force on Reassessing the Inclusion of Race in Diagnosing Kidney Disease, JASN 2020). The CKD-EPI equation should not be used for patients with unstable renal function and has not been validated in children and those over 70. Current interpretive data was last reviewed 2021. Blood 06/16/2024 12:4 2 PM PRODUCT DEVELOPMENT CHEMIST 06/16/2024 12:49 PM PRODUCT DEVELOPMENT CHEMIST Misael Felix MD LAB BLOOD ORDERABLES Final Result [facility] Department [place] [address] * Differential, auto (06/16/2024 12:42 PM PRODUCT DEVELOPMENT CHEMIST) Neutrophil abs 2.5 1.5 - 6.5 K/cumm Imm gran abs 0.0 0.0 - 0.1 K/cumm [facility] Lymphocyte abs 2.4 0.8 - 3.3 K/cumm [facility] Monocyte abs 0.4 0.2 - 0.8 K/cumm [facility] Eosinophil abs 0.4 0.0 - 0.5 K/cumm [facility] Basophil abs 0.0 0.0 - 0.1 K/cumm [facility] Neutrophil pct 42.8 % [facility] Comment: Interpretive Data Percent cell count reference ranges are not reported, since discordance with absolute values may lead to misinterpretation of CBC data. Current Interpretive Data was last revised on 2017. Imm gran pct 0.2 % [facility] Comment: Interpretive Data Percent cell count reference ranges are not reported, since discordance with absolute values may lead to misinterpretation of CBC data. Current Interpretive Data was last revised on 2017. Lymphocyte pct 42.2 % [facility] Comment: Interpretive Data Percent cell count reference ranges are not reported, since discordance with absolute values may lead to misinterpretation of CBC data. Current Interpretive Data was last revised on 2017. Monocyte pct 6.7 % [facility] Comment: Interpretive Data Percent cell count reference ranges are not reported, since discordance with absolute values may lead to misinterpretation of CBC data. Current Interpretive Data was last revised on 2017. Eosinophil pct 7.7 % [facility] Comment: Interpretive Data Percent cell count reference ranges are not reported, since discordance with absolute values may lead to misinterpretation of CBC data. Current Interpretive Data was last revised on 2017. Basophil pct 0.4 % [facility] Comment: Interpretive Data Percent cell count reference ranges are not reported, since discordance with absolute values may lead to misinterpretation of CBC data. Current Interpretive Data was last revised on 2017. Blood 06/16/2024 12:4 2 PM PRODUCT DEVELOPMENT CHEMIST 06/16/2024 12:49 PM PRODUCT DEVELOPMENT CHEMIST us Misael Felix MD LAB BLOOD ORDERABLES Final Result [facility] Department [place] [address] * (ABNORMAL) CBC with auto differential (06/16/2024 12:42 PM PRODUCT DEVELOPMENT CHEMIST) Pathologist [facility] WBC 5.7 3.8 - 9.9 K/cumm Hgb 12.2(L) 13.0 - 17.5 g/dL [facility] Hct 36.6(L) 38.9 - 50.3 % [facility] Plt 156 150 - 400 K/cumm [facility] MPV 12.6(H) 9.1 - 12.3 fL [facility] RBC 3.85(L) 4.30 - 5.80 M/cumm [facility] MCV 95.1 81.3 - 96.4 fL [facility] MCH 31.7 27.1 - 33.3 pg [facility] MCHC 33.3 32.3 - 35.7 g/dL [facility] RDW CV 13.0 11.1 - 14.9 % [facility] RDW SD 45.1 35.7 - 48.1 fL [facility] NRBC abs 0.00 0.00 - 0.01 K/cumm [facility] Blood 06/16/2024 12:4 2 PM PRODUCT DEVELOPMENT CHEMIST 06/16/2024 12:49 PM PRODUCT DEVELOPMENT CHEMIST Misael Felix MD LAB BLOOD ORDERABLES Final Result [facility] Department [place] [address] * Phosphorus (06/16/2024 12:42 PM PRODUCT DEVELOPMENT CHEMIST) Pathologist [facility] Phosphorus, pl 2.5 2.3 - 4.5 mg/dL Blood 06/16/2024 12:4 2 PM PRODUCT DEVELOPMENT CHEMIST 06/16/2024 12:49 PM PRODUCT DEVELOPMENT CHEMIST Misael Felix MD LAB BLOOD ORDERABLES Final Result [facility] [place] [address] * Magnesium (06/16/2024 12:42 PM PRODUCT DEVELOPMENT CHEMIST) [facility] Magnesium 2.0 1.4 - 2.5 mg/dL Blood 06/16/2024 12:4 2 PM PRODUCT DEVELOPMENT CHEMIST 06/16/2024 12:49 PM PRODUCT DEVELOPMENT CHEMIST Misael Felix MD LAB BLOOD ORDERABLES Final Result Performing Organization Address [facility] Co de Phone Number [facility] Department [place] [address] * (ABNORMAL) Comprehensive metabolic panel (06/16/2024 12:42 PM PRODUCT DEVELOPMENT CHEMIST) [facility] Sodium 143 135 - 145 mmol/L Potassium, pl 3.5 3.3 - 4.9 mmol/L [facility] Chloride 111(H) 97 - 110 mmol/L [facility] CO2 26 22 - 32 mmol/L [facility] Anion gap 6 2 - 15 mmol/L [facility] BUN 6 6 - 25 mg/dL [facility] Creatinine 0.56(L) 0.80 - 1.30 mg/dL [facility] Glucose 94 70 - 199 mg/dL [facility] Comment: Interpretive Data Fasting glucose >/= 126 mg/dl is diagnostic for diabetes. Fasting is defined as no caloric intake for at least 8 hours. Fasting glucose between 100 mg/dl to 125 mg/dl is diagnostic of prediabetes. In a patient with classic symptoms of hyperglycemia or hyperglycemic crisis, a random glucose >/= 200 mg/dl is diagnostic for diabetes. In the absence of unequivocal hyperglycemia, results should be confirmed by repeat testing. The classification and Diagnosis of Diabetes Diabetes Care 2021; 46: S19-S40. Current interpretive data was last revised 2022. Calcium 8.9 8.5 - 10.3 mg/dL [facility] Bilirubin, total 0.4 0.1 - 1.2 mg/dL [facility] Protein, pl 6.3(L) 6.5 - 8.5 g/dL [facility] Albumin 3.3(L) 3.5 - 5.0 g/dL [facility] Alk phos 79 40 - 130 Units/L [facility] ALT 10 7 - 55 Units/L [facility] AST 18 10 - 50 Units/L [facility] Blood 06/16/2024 12:4 2 PM PRODUCT DEVELOPMENT CHEMIST 06/16/2024 12:49 PM PRODUCT DEVELOPMENT CHEMIST us Misael Felix MD LAB BLOOD ORDERABLES Final Result [facility] Department [place] [address] * XR Abdomen Ap 1 Vw (06/15/2024 1:57 AM PRODUCT DEVELOPMENT CHEMIST) Anatomical Region Laterality Modality Body, Abdomen N/A Computed Radiogr aphy 06/15/2024 3:15 PM PRODUCT DEVELOPMENT CHEMIST Impressions 06/15/2024 4:44 PM PRODUCT DEVELOPMENT CHEMIST There is a gastrostomy tube with tip and balloon projecting over the mid abdomen, likely distal gastric body. There is mild gaseous distention of the colon, which may represent mild colonic ileus. There is opacification of the bladder, which may be from prior contrast administration or medication. Dictated by: Issa Webster MD The radiology attending physician has personally reviewed this study, and had reviewed and/or edited this written report and agrees with it. Electronically signed by: Sean Angel M.D. Narrative 06/15/2024 4:44 PM PRODUCT DEVELOPMENT CHEMIST EXAMINATION: Abdomen, one view. HISTORY: Abdominal distension. COMPARISON: CT 06/12/2024 Procedure Note Sean Angel MD - 06/15/2024 EXAMINATION: Abdomen, one view. HISTORY: Abdominal distension. COMPARISON: CT 06/12/2024 IMPRESSION: There is a gastrostomy tube with tip and balloon projecting over the mid abdomen, likely distal gastric body. There is mild gaseous distention of the colon, which may represent mild colonic ileus. There is opacification of the bladder, which may be from prior contrast administration or medication. Dictated by: Issa Webster MD The radiology attending physician has personally reviewed this study, and had reviewed and/or edited this written report and agrees with it. Electronically signed by: Sean Angel M.D. us Misael Felix MD IMG XR PROCEDURES Final Res ult * eGFR (06/13/2024 4:59 AM PRODUCT DEVELOPMENT CHEMIST) eGFR >90 >=60 mL/min/1. 73 m2 Comment: Interpretive Data Reference Interval Normal >/= 90 mL/min/1.73m2 Mildly decreased* 60 - 89 mL/min/1.73m2 Mildly to moderately decreased 45 - 59 mL/min/1.73m2 Moderately to severely decreased 30 - 44 mL/min/1.73m2 Severely decreased 15 - 29 mL/min/1.73m2 Kidney Failure < 15 mL/min/1.73m2 *Relative to young adult level Estimated glomerular filtration rate is determined by the 2020 CKD-EPI equation recommended by the National Kidney Foundation (A Unifying Approach to GFR Estimation: Recommendations of the NKF-ASK Task Force on Reassessing the Inclusion of Race in Diagnosing Kidney Disease, JASN 202). The CKD-EPI equation should not be used for patients with unstable renal function and has not been validated in children and those over 70. Current interpretive data was last reviewed 2021. Blood 06/13/2024 4:59 AM PRODUCT DEVELOPMENT CHEMIST 06/13/2024 5:38 AM PRODUCT DEVELOPMENT CHEMIST us Ryan Jauregui MD LAB BLOOD ORDERABLES Final Resul t [facility] Department [place] [address] * (ABNORMAL) Differential, auto (06/13/2024 4:59 AM PRODUCT DEVELOPMENT CHEMIST) Neutrophil abs 10.3(H) 1.5 - 6.5 K/cumm Imm gran abs 0.1 0.0 - 0.1 K/cumm [facility] Lymphocyte abs 3.0 0.8 - 3.3 K/cumm [facility] Monocyte abs 0.9(H) 0.2 - 0.8 K/cumm [facility] Eosinophil abs 0.2 0.0 - 0.5 K/cumm [facility] Basophil abs 0.0 0.0 - 0.1 K/cumm [facility] Neutrophil pct 70.9 % [facility] Comment: Interpretive Data Percent cell count reference ranges are not reported, since discordance with absolute values may lead to misinterpretation of CBC data. Current Interpretive Data was last revised on 2017. Imm gran pct 0.4 % [facility] Comment: Interpretive Data Percent cell count reference ranges are not reported, since discordance with absolute values may lead to misinterpretation of CBC data. Current Interpretive Data was last revised on 2017. Lymphocyte pct 20.7 % [facility] Comment: Interpretive Data Percent cell count reference ranges are not reported, since discordance with absolute values may lead to misinterpretation of CBC data. Current Interpretive Data was last revised on 2017. Monocyte pct 6.5 % [facility] Comment: Interpretive Data Percent cell count reference ranges are not reported, since discordance with absolute values may lead to misinterpretation of CBC data. Current Interpretive Data was last revised on 2017. Eosinophil pct 1.4 % [facility] Comment: Interpretive Data Percent cell count reference ranges are not reported, since discordance with absolute values may lead to misinterpretation of CBC data. Current Interpretive Data was last revised on 2017. Basophil pct 0.1 % [facility] Comment: Interpretive Data Percent cell count reference ranges are not reported, since discordance with absolute values may lead to misinterpretation of CBC data. Current Interpretive Data was last revised on 2017. Blood 06/13/2024 4:59 AM PRODUCT DEVELOPMENT CHEMIST 06/13/2024 5:38 AM PRODUCT DEVELOPMENT CHEMIST us Ryan Jauregui MD LAB BLOOD ORDERABLES Final Resul t [facility] [place] [address] * Lacosamide level (06/13/2024 4:59 AM PRODUCT DEVELOPMENT CHEMIST) [facility] Lacosamide 1.4 1.0 - 10.0 mcg/mL [facility] Comment: ADDITIONAL INFORMATION This test was developed and its performance characteristics determined by [facility] in a manner consistent with CLIA requirements. This test has not been cleared or approved by the U.S. Food and Drug Administration. Test Performed by: [place] [address] [employer]: Marianela Odonnell Ph.D.; CLIA# [id number] Blood 06/13/2024 4:59 AM PRODUCT DEVELOPMENT CHEMIST 06/13/2024 5:38 AM PRODUCT DEVELOPMENT CHEMIST Ryan Jauregui MD LAB BLOOD ORDERABLES Final Resul t [facility] [place] [address] [facility] * (ABNORMAL) CBC with auto differential (06/13/2024 4:59 AM PRODUCT DEVELOPMENT CHEMIST) [facility] WBC 14.6(H) 3.8 - 9.9 K/cumm Hgb 13.2 13.0 - 17.5 g/dL [facility] Hct 39.7 38.9 - 50.3 % [facility] Plt 155 150 - 400 K/cumm [facility] MPV 12.4(H) 9.1 - 12.3 fL [facility] RBC 4.03(L) 4.30 - 5.80 M/cumm [facility] MCV 98.5(H) 81.3 - 96.4 fL [facility] MCH 32.8 27.1 - 33.3 pg [facility] MCHC 33.2 32.3 - 35.7 g/dL [facility] RDW CV 13.6 11.1 - 14.9 % [facility] RDW SD 50.2(H) 35.7 - 48.1 fL [facility] NRBC abs 0.00 0.00 - 0.01 K/cumm [facility] Blood 06/13/2024 4:59 AM PRODUCT DEVELOPMENT CHEMIST 06/13/2024 5:38 AM PRODUCT DEVELOPMENT CHEMIST Ryan Jauregui MD LAB BLOOD ORDERABLES Final Resul t [facility] [place] [address] * Blood culture Blood (06/13/2024 4:59 AM PRODUCT DEVELOPMENT CHEMIST) Report Final Report: No growth Blood 06/13/2024 4:59 AM PRODUCT DEVELOPMENT CHEMIST 06/13/2024 6:21 AM PRODUCT DEVELOPMENT CHEMIST Narrative [facility] - 06/17/2024 7:00 AM PRODUCT DEVELOPMENT CHEMIST From a different site than #1. Collection->Peripheral 1. Blood cultures are incubated for 4 days on a continuously monitored blood culture system. The first report of a negative culture is issued within 24 hours of receipt of the specimen in the laboratory. 2. Positive culture results are reported as soon as they are detected. 3. The most important factor for detection of microbes in the setting of bloodstream infection is the volume of blood submitted for culture. Failure to collect an optimal blood volume can result in false negative blood cultures. 4. For pediatric patients, the recommended blood volume to collect follows a weight based strategy. See the electronic test catalog for collection instructions. 5. For positive blood cultures, a rapid molecular test may be performed for organism identification using the zac [employer]lex blood culture identification panel for gram positive (BCID-GP) and gram negative (BCID-GN) organisms. This nucleic acid amplification test detects microbial DNA in positive blood culture broth. This assay has been cleared by the [place] Food and Drug Administration and its performance characteristics have been verified by the [facility] Microbiology [facility]. For questions about this culture, contact the Microbiology Laboratory at [phone]. Interpretive data was last revised on 24. Result [facility] Ryan Jauregui MD LAB MICROBIOLOGY - GENERAL ORDER NICHOLE Final Result Performing Organization Address [facility] [place] [address] * Phosphorus (06/13/2024 4:59 AM PRODUCT DEVELOPMENT CHEMIST) Phosphorus, pl 3.0 2.3 - 4.5 mg/dL Blood 06/13/2024 4:59 AM PRODUCT DEVELOPMENT CHEMIST 06/13/2024 5:38 AM PRODUCT DEVELOPMENT CHEMIST Ryan Jauregui MD LAB BLOOD ORDERABLES Final Resul t Performing Organization Address [facility] de Phone Number [facility] [place] [address] * Magnesium (06/13/2024 4:59 AM PRODUCT DEVELOPMENT CHEMIST) Magnesium 1.9 1.4 - 2.5 mg/dL Blood 06/13/2024 4:59 AM PRODUCT DEVELOPMENT CHEMIST 06/13/2024 5:38 AM PRODUCT DEVELOPMENT CHEMIST Result [facility] Ryan Jauregui MD LAB BLOOD ORDERABLES Final Resul t Performing Organization Address [facility] de Phone Number [facility] [place] [address] * (ABNORMAL) Valproic acid level, total (06/13/2024 4:59 AM PRODUCT DEVELOPMENT CHEMIST) Valproic Acid 48.0(L) 50.0 - 100.0 mcg/mL Comment: Interpretive Data Therapeutic or toxic effects of anticonvulsant drugs may occur at different concentrations in different patients and the correlation between dose and clinical effect must be evaluated individually. Current interpretative data was last revised on 13. Blood 06/13/2024 4:59 AM PRODUCT DEVELOPMENT CHEMIST 06/13/2024 5:38 AM PRODUCT DEVELOPMENT CHEMIST Ryan Jauregui MD LAB BLOOD ORDERABLES Final Resul t Performing Organization Address [facility]/ZIP Co de Phone Number [facility] [place] [address] * (ABNORMAL) Comprehensive metabolic panel (06/13/2024 4:59 AM PRODUCT DEVELOPMENT CHEMIST) Sodium 141 135 - 145 mmol/L Potassium, pl 3.9 3.3 - 4.9 mmol/L [facility] Chloride 106 97 - 110 mmol/L [facility] CO2 28 22 - 32 mmol/L [facility] Anion gap 7 2 - 15 mmol/L [facility] BUN 8 6 - 25 mg/dL [facility] Creatinine 0.54(L) 0.80 - 1.30 mg/dL [facility] Glucose 103 70 - 199 mg/dL [facility] Comment: Interpretive Data Fasting glucose >/= 126 mg/dl is diagnostic for diabetes. Fasting is defined as no caloric intake for at least 8 hours. Fasting glucose between 100 mg/dl to 125 mg/dl is diagnostic of prediabetes. In a patient with classic symptoms of hyperglycemia or hyperglycemic crisis, a random glucose >/= 200 mg/dl is diagnostic for diabetes. In the absence of unequivocal hyperglycemia, results should be confirmed by repeat testing. The classification and Diagnosis of Diabetes Diabetes Care 202; 46: S19-S40. Current interpretive data was last revised 2022. Calcium 9.5 8.5 - 10.3 mg/dL [facility] Bilirubin, total 0.5 0.1 - 1.2 mg/dL [facility] Protein, pl 7.1 6.5 - 8.5 g/dL [facility] Albumin 3.7 3.5 - 5.0 g/dL [facility] Alk phos 96 40 - 130 Units/L [facility] ALT 17 7 - 55 Units/L [facility] AST 22 10 - 50 Units/L [facility] Blood 06/13/2024 4:59 AM PRODUCT DEVELOPMENT CHEMIST 06/13/2024 5:38 AM PRODUCT DEVELOPMENT CHEMIST Ryan Jauregui MD LAB BLOOD ORDERABLES Final Resul t Performing Organization Address [facility]/ZIP Co de Phone Number [facility] [place] [address] * TSH (06/12/2024 3:51 PM PRODUCT DEVELOPMENT CHEMIST) Pathologist [facility] [place] Thyroid Stimulating Hormone 2.58 0.30 - 4.20 mcIUnit/mL Blood 06/12/2024 3:5 1 PM PRODUCT DEVELOPMENT CHEMIST 06/12/2024 5:05 PM PRODUCT DEVELOPMENT CHEMIST Ryan Jauregui MD LAB BLOOD ORDERABLES Final Resul t Performing Organization Address [facility] Co de Phone Number [facility] Department [place] [address] * (ABNORMAL) Differential, auto (06/12/2024 3:30 PM PRODUCT DEVELOPMENT CHEMIST) Pathologist [facility] Neutrophil abs 9.5(H) 1.5 - 6.5 K/cumm Imm gran abs 0.0 0.0 - 0.1 K/cumm [facility] Lymphocyte abs 2.3 0.8 - 3.3 K/cumm [facility] Monocyte abs 1.1(H) 0.2 - 0.8 K/cumm [facility] Eosinophil abs 0.2 0.0 - 0.5 K/cumm [facility] Basophil abs 0.0 0.0 - 0.1 K/cumm [facility] Neutrophil pct 72.4 % [facility] Comment: Interpretive Data Percent cell count reference ranges are not reported, since discordance with absolute values may lead to misinterpretation of CBC data. Current Interpretive Data was last revised on 2017. Imm gran pct 0.2 % [facility] Comment: Interpretive Data Percent cell count reference ranges are not reported, since discordance with absolute values may lead to misinterpretation of CBC data. Current Interpretive Data was last revised on 2017. Lymphocyte pct 17.4 % [facility] Comment: Interpretive Data Percent cell count reference ranges are not reported, since discordance with absolute values may lead to misinterpretation of CBC data. Current Interpretive Data was last revised on 2017. Monocyte pct 8.3 % [facility] Comment: Interpretive Data Percent cell count reference ranges are not reported, since discordance with absolute values may lead to misinterpretation of CBC data. Current Interpretive Data was last revised on 2017. Eosinophil pct 1.5 % [facility] Comment: Interpretive Data Percent cell count reference ranges are not reported, since discordance with absolute values may lead to misinterpretation of CBC data. Current Interpretive Data was last revised on 2017. Basophil pct 0.2 % [facility] Comment: Interpretive Data Percent cell count reference ranges are not reported, since discordance with absolute values may lead to misinterpretation of CBC data. Current Interpretive Data was last revised on 2017. Blood 06/12/2024 3:30 PM PRODUCT DEVELOPMENT CHEMIST 06/12/2024 5:10 PM PRODUCT DEVELOPMENT CHEMIST us Ryan Jauregui MD LAB BLOOD ORDERABLES Final Resul t [facility] [place] [address] * (ABNORMAL) CBC with auto differential (06/12/2024 3:30 PM PRODUCT DEVELOPMENT CHEMIST) WBC 13.3(H) 3.8 - 9.9 K/cumm Hgb 13.7 13.0 - 17.5 g/dL [facility] Hct 41.5 38.9 - 50.3 % [facility] Plt 162 150 - 400 K/cumm [facility] MPV 13.6(H) 9.1 - 12.3 fL [facility] RBC 4.27(L) 4.30 - 5.80 M/cumm [facility] MCV 97.2(H) 81.3 - 96.4 fL [facility] MCH 32.1 27.1 - 33.3 pg [facility] MCHC 33.0 32.3 - 35.7 g/dL [facility] RDW CV 13.7 11.1 - 14.9 % [facility] RDW SD 48.8(H) 35.7 - 48.1 fL [facility] NRBC abs 0.00 0.00 - 0.01 K/cumm [facility] Blood 06/12/2024 3:30 PM PRODUCT DEVELOPMENT CHEMIST 06/12/2024 5:10 PM PRODUCT DEVELOPMENT CHEMIST Ryan Jauregui MD LAB BLOOD ORDERABLES Final Resul t Performing Organization Address [facility] Phone Number [facility] [place] [address] * Hemoglobin A1c (06/12/2024 3:30 PM PRODUCT DEVELOPMENT CHEMIST) [facility] Hgb A1C 4.9 4.0 - 5.6 % Estimated Average Glucose 94 mg/dL [facility] Comment: The ADA recommends reporting an estimated Average Glucose (eAG) with all Hemoglobin A1c results using the equation derived from a study of 507 normal and diabetic adults. Minority populations were underrepresented and children were not included. (Diabetes Care 2020; 43(S1): S66-S76). The eAG is not equivalent to a fasting glucose. Blood 06/12/2024 3:30 PM PRODUCT DEVELOPMENT CHEMIST 06/12/2024 5:10 PM PRODUCT DEVELOPMENT CHEMIST Ryan Jauregui MD LAB BLOOD ORDERABLES Final Resul t Performing Organization Address [facility] Phone Number [facility] [place] [address] * Troponin I high-sensitivity 4-hour (06/12/2024 3:27 PM PRODUCT DEVELOPMENT CHEMIST) Pathologist [facility] [place] Trop I hs 10 <=35 ng/L Comment: Interpretive Data For further hscTnI resources including the diagnostic algorithm and an aid in interpretation, copy and paste this link: [email or web address]/[email or web address] Current Interpretive Data last revised 2019. Trop I hs delta 1 ng/L [facility] Trop I hs interp Insignificant [facility] Blood 06/12/2024 3:27 PM PRODUCT DEVELOPMENT CHEMIST 06/12/2024 5:06 PM PRODUCT DEVELOPMENT CHEMIST Shakila Jung MD LAB BLOOD ORDERABL ES Final Result [facility] Department [place] [address] * XR Chest 1 Vw Portable (06/12/2024 2:47 PM PRODUCT DEVELOPMENT CHEMIST) Anatomical Region Laterality Modality Body, Chest N/A Computed Radiogr aphy 06/12/2024 2:51 PM PRODUCT DEVELOPMENT CHEMIST Impressions 06/12/2024 2:51 PM PRODUCT DEVELOPMENT CHEMIST Comparison to 10/07/2021. Tracheostomy device in place. Small lung volumes with bibasilar atelectasis. No pneumothorax or focal consolidation. Unchanged cardiomediastinal silhouette, accounting for differences volumes. Small left pleural effusion. No right pleural effusion. Electronically signed by: Raul Whitfield M.D. Narrative 06/12/2024 2:51 PM PRODUCT DEVELOPMENT CHEMIST EXAMINATION: 1 view chest radiograph Procedure Note Raul Whitfield MD - 06/12/2024 EXAMINATION: 1 view chest radiograph IMPRESSION: Comparison to 10/07/2021. Tracheostomy device in place. Small lung volumes with bibasilar atelectasis. No pneumothorax or focal consolidation. Unchanged cardiomediastinal silhouette, accounting for differences volumes. Small left pleural effusion. No right pleural effusion. Electronically signed by: Raul Whitfield M.D. us Shakila Jung MD IMG XR PROCEDURES Final Result * (ABNORMAL) Urinalysis reflex to microscopic and culture Urine, in and out catheter (06/12/2024 2:38PM PRODUCT DEVELOPMENT CHEMIST) Color, ur Straw Yellow Clarity, ur Clear Clear [facility] Specific gravity, ur >1.042(H) 1.003 - 1.030 [facility] pH, urine 8.5 [facility] Comment: Interpretive Data U rine pH is affected by diet, medications, systemic acid-base disturbances, and renal tubular function. pH may affect urinary stone formation. For example, urine pH below 6.0 may help reduce the tendency for calcium phosphate stones and pH greater than 6.0 may reduce the tendency for uric acid stone formation. Source: [facility] Current Interpretive Data was last revised on 2017 Protein, ur ql Trace Negative [facility] Glucose, ur ql Negative Negative [facility] Ketones, ur Negative Negative [facility] Bilirubin, ur Negative Negative [facility] Blood, ur Negative Negative [facility] Urobilinogen, ur 2.0(A) <2.0 mg/dL [facility] Nitrite, ur Negative Negative [facility] Leukocyte esterase, ur Negative Negative [facility] UA reflex comment Reflex conditions for microscopic UA and culture not met. [facility] Urine, in and out catheter 06/12/2024 2:38 PM PRODUCT DEVELOPMENT CHEMIST 06/12/2024 3:47 PM PRODUCT DEVELOPMENT CHEMIST us Shakila Jung MD LAB MICROBIOLOGY - GENERAL ORDERABLES Final Result [facility] [place] [address] * (ABNORMAL) Differential, auto (06/12/2024 2:23 PM PRODUCT DEVELOPMENT CHEMIST) Neutrophil abs 9.9(H) 1.5 - 6.5 K/cumm Imm gran abs 0.1 0.0 - 0.1 K/cumm [facility] Lymphocyte abs 2.5 0.8 - 3.3 K/cumm [facility] Monocyte abs 1.0(H) 0.2 - 0.8 K/cumm [facility] Eosinophil abs 0.2 0.0 - 0.5 K/cumm [facility] Basophil abs 0.0 0.0 - 0.1 K/cumm [facility] Neutrophil pct 72.4 % [facility] Comment: Interpretive Data Percent cell count reference ranges are not reported, since discordance with absolute values may lead to misinterpretation of CBC data. Current Interpretive Data was last revised on 2017. Imm gran pct 0.4 % [facility] Comment: Interpretive Data Percent cell count reference ranges are not reported, since discordance with absolute values may lead to misinterpretation of CBC data. Current Interpretive Data was last revised on 2017. Lymphocyte pct 18.4 % [facility] Comment: Interpretive Data Percent cell count reference ranges are not reported, since discordance with absolute values may lead to misinterpretation of CBC data. Current Interpretive Data was last revised on 2017. Monocyte pct 7.2 % [facility] Comment: Interpretive Data Percent cell count reference ranges are not reported, since discordance with absolute values may lead to misinterpretation of CBC data. Current Interpretive Data was last revised on 2017. Eosinophil pct 1.5 % [facility] Comment: Interpretive Data Percent cell count reference ranges are not reported, since discordance with absolute values may lead to misinterpretation of CBC data. Current Interpretive Data was last revised on 2017. Basophil pct 0.1 % [facility] Comment: Interpretive Data Percent cell count reference ranges are not reported, since discordance with absolute values may lead to misinterpretation of CBC data. Current Interpretive Data was last revised on 2017. Blood 06/12/2024 2:23 PM PRODUCT DEVELOPMENT CHEMIST 06/12/2024 4:04 PM PRODUCT DEVELOPMENT CHEMIST us Shakila Jung MD LAB BLOOD ORDERABL ES Final Result [facility] [place] [address] * (ABNORMAL) CBC with auto differential (06/12/2024 2:23 PM PRODUCT DEVELOPMENT CHEMIST) WBC 13.7(H) 3.8 - 9.9 K/cumm Hgb 14.1 13.0 - 17.5 g/dL [facility] Hct 42.0 38.9 - 50.3 % [facility] Plt 171 150 - 400 K/cumm [facility] MPV 13.2(H) 9.1 - 12.3 fL [facility] RBC 4.36 4.30 - 5.80 M/cumm [facility] MCV 96.3 81.3 - 96.4 fL [facility] MCH 32.3 27.1 - 33.3 pg [facility] MCHC 33.6 32.3 - 35.7 g/dL [facility] RDW CV 13.5 11.1 - 14.9 % [facility] RDW SD 48.5(H) 35.7 - 48.1 fL [facility] NRBC abs 0.00 0.00 - 0.01 K/cumm [facility] Blood 06/12/2024 2:23 PM PRODUCT DEVELOPMENT CHEMIST 06/12/2024 4:04 PM PRODUCT DEVELOPMENT CHEMIST Shakila Jung MD LAB BLOOD ORDERABL ES Final Result Performing Organization Address City/[facility]/ZIP Co de Phone Number [facility] [place] [employer] [place] [address] * Troponin I high-sensitivity 2-hour (06/12/2024 1:56 PM PRODUCT DEVELOPMENT CHEMIST) Trop I hs 10 <=35 ng/L Comment: Interpretive Data For further hscTnI resources including the diagnostic algorithm and an aid in interpretation, copy and paste this link: [email or web address]/[email or web address] Current Interpretive Data last revised 2019. Trop I hs delta 1 ng/L [facility] Trop I hs interp Insignificant [facility] Blood 06/12/2024 1:56 PM PRODUCT DEVELOPMENT CHEMIST 06/12/2024 2:22 PM PRODUCT DEVELOPMENT CHEMIST Shakila Jung MD LAB BLOOD ORDERABL ES Final Result [facility] [place] [employer] [place] [address] * CT Abdomen Pelvis W Contrast (06/12/2024 12:22 PM PRODUCT DEVELOPMENT CHEMIST) Anatomical Region Laterality Modality Body N/A Computed Tomogra phy 06/12/2024 12:4 9 PM PRODUCT DEVELOPMENT CHEMIST Impressions 06/12/2024 12:49 PM PRODUCT DEVELOPMENT CHEMIST No acute findings in the abdomen/pelvis. Specifically, no bowel obstruction. Electronically signed by: Raul Whitfield M.D. Narrative 06/12/2024 12:49 PM PRODUCT DEVELOPMENT CHEMIST EXAMINATION: Computed tomography of the abdomen and pelvis with intravenous contrast HISTORY: Abdominal distention, pain TECHNIQUE: Computed tomographic images of the abdomen and pelvis were obtained with intravenous contrast according to the standard protocol after the uneventful administration of 70 mL Opti-Ray 350 intravenous contrast. COMPARISON: None FINDINGS: Normal heart size. No pericardial effusion. Mediastinal lipomatosis. Mild bilateral gynecomastia. Trace left pleural effusion. Bibasilar atelectasis, left greater than right. No focal liver lesions. Pancreatic divisum. Otherwise, normal appearance of the pancreas. No biliary duct dilation. Normal gallbladder, spleen, and adrenal glands. Scattered tiny bilateral nonobstructing renal calculi. No suspicious renal lesions. Normal urinary bladder. Normal appendix and terminal ileum. No dilated loops of small or large bowel. No abnormal bowel wall thickening. Percutaneous gastrostomy catheter in appropriate position. Normal duodenum. Patent mesenteric vessels. No abdominal, pelvic, or inguinal lymphadenopathy. Mild diffuse body wall and proximal lower extremity edema. No suspicious osseous lesions. Procedure Note Raul Whitfield MD - 06/12/2024 EXAMINATION: Computed tomography of the abdomen and pelvis with intravenous contrast HISTORY: Abdominal distention, pain TECHNIQUE: Computed tomographic images of the abdomen and pelvis were obtained with intravenous contrast according to the standard protocol after the uneventful administration of 70 mL Opti-Ray 350 intravenous contrast. COMPARISON: None FINDINGS: Normal heart size. No pericardial effusion. Mediastinal lipomatosis. Mild bilateral gynecomastia. Trace left pleural effusion. Bibasilar atelectasis, left greater than right. No focal liver lesions. Pancreatic divisum. Otherwise, normal appearance of the pancreas. No biliary duct dilation. Normal gallbladder, spleen, and adrenal glands. Scattered tiny bilateral nonobstructing renal calculi. No suspicious renal lesions. Normal urinary bladder. Normal appendix and terminal ileum. No dilated loops of small or large bowel. No abnormal bowel wall thickening. Percutaneous gastrostomy catheter in appropriate position. Normal duodenum. Patent mesenteric vessels. No abdominal, pelvic, or inguinal lymphadenopathy. Mild diffuse body wall and proximal lower extremity edema. No suspicious osseous lesions. IMPRESSION: No acute findings in the abdomen/pelvis. Specifically, no bowel obstruction. Electronically signed by: Raul Whitfield M.D. Shakila Jung MD IMG CT PROCEDURES Final Result * ED PERIPHERAL LINE INSERTION (06/12/2024 11:50 AM PRODUCT DEVELOPMENT CHEMIST) Narrative Shakila Jung MD - 06/12/2024 11:50 AM PRODUCT DEVELOPMENT CHEMIST Shakila Jung MD 06/12/2024 11:50 AM Peripheral line insertion Date/Time: 06/12/2024 11:50 AM Performed by: Shakila Jung MD Authorized by: Shakila Jung MD Indications: Nursing unable to obtain Pre-procedure details: Hand hygiene: Hand hygiene performed prior to insertion Skin preparation: Alcohol and 2% chlorhexidine Procedure details: Catheter size: 20 G Laterality: Left Location: Antecubital fossa Number of attempts: 3 Ultrasound guidance was used to confirm vessel patency and needle position: Yes Successful placement: yes Post-procedure details: Post-procedure: Dressing applied and line secured Patient tolerance of procedure: Tolerated well, no immediate complications Result [facility] Shakila Jung MD IN CLINIC/BEDSIDE ORDERABLES Final Result * Influenza A/B, RSV, and COVID-19 PCR Nasopharyngeal (06/12/2024 11:39 AM PRODUCT DEVELOPMENT CHEMIST) [facility] COVID-19 RNA Negative Negative [facility] Influenza A RNA Negative Negative [facility] Influenza B RNA Negative Negative [facility] RSV RNA Negative Negative [facility] Comment: Interpretive data: Testing performed by [facility] ([phone]). This test is performed using the [employer] Xpert Xpress CoV-2/Flu/RSV plus assay. This is a multiplex, real-time reverse transcriptase PCR assay intended for the qualitative detection of nucleic acid from SARS-CoV-2, influenza A, influenza B, and respiratory syncytial virus. This assay has been cleared by the [place] Food and Drug administration. The performance characteristics have been verified by the [facility]. Results must be considered in the clinical context, and a negative result does not rule out infection. Interpretive Data last revised 2023 Nasopharyngeal 06/12/2024 11 :39 AM PRODUCT DEVELOPMENT CHEMIST 06/12/2024 12:55 PM PRODUCT DEVELOPMENT CHEMIST Narrative [facility] - 06/12/2024 1:39 PM PRODUCT DEVELOPMENT CHEMIST Is the Patient experiencing symptoms consistent with COVID?->Unknown Shakila Jung MD LAB MICROBIOLOGY - GENERAL ORDERABLES Final Result Performing Organization Address [facility] de Phone Number [facility] [place] [address] [facility] * POCT creatinine (06/12/2024 11:29 AM PRODUCT DEVELOPMENT CHEMIST) Pathologist [facility] [place] Creatinine POC 0.7 0.7 - 1.3 mg/dL Blood 06/12/2024 11:2 9 AM PRODUCT DEVELOPMENT CHEMIST 06/12/2024 11:29 AM PRODUCT DEVELOPMENT CHEMIST Shakila Jung MD LAB POCT ORDERABLE S - DEVICE Final Result Performing Organization Address [facility] de Phone Number [facility] [place] [address] * Troponin I high-sensitivity series (baseline, 2hr, 4hr, 6hr) (06/12/2024 11:22 AM PRODUCT DEVELOPMENT CHEMIST) Pathologist [facility] [place] Trop I hs 9 <=35 ng/L Comment: Interpretive Data For further hscTnI resources including the diagnostic algorithm and an aid in interpretation, copy and paste this link: [email or web address]/[email or web address] Current Interpretive Data last revised 2019. Blood 06/12/2024 11:2 2 AM PRODUCT DEVELOPMENT CHEMIST 06/12/2024 1:06 PM PRODUCT DEVELOPMENT CHEMIST Shakila Jung MD LAB BLOOD ORDERABL ES Final Result [facility] [place] [address] * eGFR (06/12/2024 11:22 AM PRODUCT DEVELOPMENT CHEMIST) eGFR >90 >=60 mL/min/1. 73 m2 Comment: Interpretive Data Reference Interval Normal >/= 90 mL/min/1.73m2 Mildly decreased* 60 - 89 mL/min/1.73m2 Mildly to moderately decreased 45 - 59 mL/min/1.73m2 Moderately to severely decreased 30 - 44 mL/min/1.73m2 Severely decreased 15 - 29 mL/min/1.73m2 Kidney Failure < 15 mL/min/1.73m2 *Relative to young adult level Estimated glomerular filtration rate is determined by the 2020 CKD-EPI equation recommended by the National Kidney Foundation (A Unifying Approach to GFR Estimation: Recommendations of the NKF-ASK Task Force on Reassessing the Inclusion of Race in Diagnosing Kidney Disease, JASN 2020). The CKD-EPI equation should not be used for patients with unstable renal function and has not been validated in children and those over 70. Current interpretive data was last reviewed 2021. Blood 06/12/2024 11:2 2 AM PRODUCT DEVELOPMENT CHEMIST 06/12/2024 1:07 PM PRODUCT DEVELOPMENT CHEMIST Shakila Jung MD LAB BLOOD ORDERABL ES Final Result Performing Organization Address [facility]/State/ZIP Co de Phone Number [facility] [place] [address] * Differential, auto (06/12/2024 11:22 AM PRODUCT DEVELOPMENT CHEMIST) Neutrophil abs See Comment 1.5 - 6.5 Comment:Credited, specimen c lotted. Imm gran abs See Comment 0.0 - 0.1 [facility] Comment:Credited, specimen c lotted. Lymphocyte abs See Comment 0.8 - 3.3 [facility] Comment:Credited, specimen c lotted. Monocyte abs See Comment 0.2 - 0.8 [facility] Comment:Credited, specimen c lotted. Eosinophil abs See Comment 0.0 - 0.5 [facility] Comment:Credited, specimen c lotted. Basophil abs See Comment 0.0 - 0.1 [facility] Comment:Credited, specimen c lotted. Neutrophil pct See Comment [facility] Comment: Credited, specimen clotted. Interpretive Data Percent cell count reference ranges are not reported, since discordance with absolute values may lead to misinterpretation of CBC data. Current Interpretive Data was last revised on 2017. Imm gran pct See Comment [facility] Comment: Credited, specimen clotted. Interpretive Data Percent cell count reference ranges are not reported, since discordance with absolute values may lead to misinterpretation of CBC data. Current Interpretive Data was last revised on 2017. Lymphocyte pct See Comment [facility] Comment: Credited, specimen clotted. Interpretive Data Percent cell count reference ranges are not reported, since discordance with absolute values may lead to misinterpretation of CBC data. Current Interpretive Data was last revised on 2017. Monocyte pct See Comment [facility] Comment: Credited, specimen clotted. Interpretive Data Percent cell count reference ranges are not reported, since discordance with absolute values may lead to misinterpretation of CBC data. Current Interpretive Data was last revised on 2017. Eosinophil pct See Comment [facility] Comment: Credited, specimen clotted. Interpretive Data Percent cell count reference ranges are not reported, since discordance with absolute values may lead to misinterpretation of CBC data. Current Interpretive Data was last revised on 2017. Basophil pct See Comment [facility] Comment: Credited, specimen clotted. Interpretive Data Percent cell count reference ranges are not reported, since discordance with absolute values may lead to misinterpretation of CBC data. Current Interpretive Data was last revised on 2017. Blood 06/12/2024 11:2 2 AM PRODUCT DEVELOPMENT CHEMIST 06/12/2024 1:07 PM PRODUCT DEVELOPMENT CHEMIST us Shakila Jung MD LAB BLOOD ORDERABL ES Edited Result - Final [facility] Department [place] [address] * CBC with auto differential (06/12/2024 11:22 AM PRODUCT DEVELOPMENT CHEMIST) Pathologist [facility] [place] WBC See Comment 3.8 - 9.9 Comment:Credited, specimen c lotted. Hgb See Comment 13.0 - 17.5 [facility] Comment:Credited, specimen c lotted. Hct See Comment 38.9 - 50.3 [facility] Comment:Credited, specimen c lotted. Plt See Comment 150 - 400 [facility] Comment: Credited, specimen clotted. spoke to ALFRED Velásquez 06/12/2024 14:17:24 PRODUCT DEVELOPMENT CHEMIST fv MPV See Comment 9.1 - 12.3 [facility] Comment:Credited, specimen c lotted. RBC See Comment 4.30 - 5.80 [facility] Comment:Credited, specimen c lotted. MCV See Comment 81.3 - 96.4 [facility] Comment:Credited, specimen c lotted. MCH See Comment 27.1 - 33.3 [facility] Comment:Credited, specimen c lotted. MCHC See Comment 32.3 - 35.7 [facility] Comment:Credited, specimen c lotted. RDW CV See Comment 11.1 - 14.9 [facility] Comment:Credited, specimen c lotted. RDW SD See Comment 35.7 - 48.1 [facility] Comment:Credited, specimen c lotted. NRBC abs See Comment 0.00 - 0.01 K/cumm [facility] Comment:Credited, specimen c lotted. Blood 06/12/2024 11:2 2 AM PRODUCT DEVELOPMENT CHEMIST 06/12/2024 1:07 PM PRODUCT DEVELOPMENT CHEMIST us Shakila Jung MD LAB BLOOD ORDERABL ES Final Result [facility] Department [place] [address] * Lipase (06/12/2024 11:22 AM PRODUCT DEVELOPMENT CHEMIST) Pathologist [facility] [place] Lipase 24 10 - 99 Units/L Blood 06/12/2024 11:2 2 AM PRODUCT DEVELOPMENT CHEMIST 06/12/2024 1:07 PM PRODUCT DEVELOPMENT CHEMIST Shakila Jung MD LAB BLOOD ORDERABL ES Final Result Performing Organization Address [facility] Co de Phone Number [facility] [place] [address] * (ABNORMAL) Valproic acid level, total (06/12/2024 11:22 AM PRODUCT DEVELOPMENT CHEMIST) Valproic Acid 48.0(L) 50.0 - 100.0 mcg/mL Comment: Interpretive Data Therapeutic or toxic effects of anticonvulsant drugs may occur at different concentrations in different patients and the correlation between dose and clinical effect must be evaluated individually. Current interpretative data was last revised on 13. Blood 06/12/2024 11:2 2 AM PRODUCT DEVELOPMENT CHEMIST 06/12/2024 1:07 PM PRODUCT DEVELOPMENT CHEMIST Shakila Jung MD LAB BLOOD ORDERABL ES Final Result Performing Organization Address [facility] de Phone Number [facility] [place] [address] * (ABNORMAL) Comprehensive metabolic panel (06/12/2024 11:22 AM PRODUCT DEVELOPMENT CHEMIST) Sodium 142 135 - 145 mmol/L Potassium, pl 4.6 3.3 - 4.9 mmol/L [facility] Comment:Hemolyzed; Potassium value may be falsely elevated by as much as 0.6-1.0 mmol/L. Suggest redraw and reanalysis. Chloride 101 97 - 110 mmol/L [facility] CO2 29 22 - 32 mmol/L [facility] Anion gap 12 2 - 15 mmol/L [facility] BUN 11 6 - 25 mg/dL [facility] Creatinine 0.60(L) 0.80 - 1.30 mg/dL [facility] Glucose 89 70 - 199 mg/dL [facility] Comment: Interpretive Data Fasting glucose >/= 126 mg/dl is diagnostic for diabetes. Fasting is defined as no caloric intake for at least 8 hours. Fasting glucose between 100 mg/dl to 125 mg/dl is diagnostic of prediabetes. In a patient with classic symptoms of hyperglycemia or hyperglycemic crisis, a random glucose >/= 200 mg/dl is diagnostic for diabetes. In the absence of unequivocal hyperglycemia, results should be confirmed by repeat testing. The classification and Diagnosis of Diabetes Diabetes Care 2021; 46: S19-S40. Current interpretive data was last revised 2022. Calcium 10.3 8.5 - 10.3 mg/dL [facility] Bilirubin, total 0.3 0.1 - 1.2 mg/dL [facility] Protein, pl 8.5 6.5 - 8.5 g/dL [facility] Albumin 4.3 3.5 - 5.0 g/dL [facility] Alk phos 114 40 - 130 Units/L [facility] ALT 22 7 - 55 Units/L [facility] AST 45 10 - 50 Units/L [facility] Comment:Hemolyzed; result ma y be falsely elevated Blood 06/12/2024 11:2 2 AM PRODUCT DEVELOPMENT CHEMIST 06/12/2024 1:07 PM PRODUCT DEVELOPMENT CHEMIST Shakila Jung MD LAB BLOOD ORDERABL ES Final Result [facility] Department [place] [address] * ECG 12-LEAD (06/12/2024 11:01 AM PRODUCT DEVELOPMENT CHEMIST) Narrative [facility] - 06/12/2024 11:01 AM PRODUCT DEVELOPMENT CHEMIST Shakila Jung MD 06/12/2024 11:02 AM ECG 12 lead Date/Time: 06/12/2024 11:01 AM Performed by: Shakila Jung MD Authorized by: Shakila Jung MD Interpretation: Interpretation: non-specific Recommended Follow-up: Recommended follow up: further workup in the ED Comments: Compared to EKG from 11/17/2021 Demonstrates sinus tachycardia with a rate of 104, left axis deviation, no ectopy, no acute ST elevations, nonspecific ST changes, no ischemic changes from prior Procedure Note Shakila Jung MD - 06/12/2024 11:01 AM CST Procedure ECG 12 lead Date/Time: 06/12/2024 11:01 AM Performed by: Shakila Jung MD Authorized by: Shakila Jung MD Interpretation: Interpretation: non-specific Recommended Follow-up: Recommended follow up: further workup in the ED Comments: Compared to EKG from 11/17/2021 Demonstrates sinus tachycardia with a rate of 104, left axis deviation, noectopy, no acute ST elevations, nonspecific ST changes, no ischemicchanges from prior Shakila Jung MD 06/12/24 1102 Shakila Jung MD ECG ORDERABLES Fi nal Result [facility] * TNI with LIPID PANEL (08/24/2017 4:57 PM CDT) Troponin I < 0.300 0.000 - 0.300 ng/mL 08/24/2017 5:29 PM T [facility] [employer] HISTORICAL RESULTS Comment: Reference using ZAC Chemiluminescence Negative: Repeat in 4-6 hours as indicated. Triglycerides 34 0 - 199 mg/dL 08/24/2017 5:30 PM T [facility] [employer] HISTORICAL RESULTS Comment:12 hr pc highly avani mmended for Triglyceride Cholesterol 129 0 - 199 mg/dL 08/24/2017 5:30 PM T [facility] [employer] HISTORICAL RESULTS Comment: Borderline: 200-239 High Risk: >239 HDL Cholesterol 71 mg/dL 8 5:30 PM T [facility] [employer] HISTORICAL RESULTS Comment: Reference Ranges: Males: >=40 mg/dL Females: >=50 mg/dL LDL Cholesterol, Calc 51 0 - 130 mg/dL 08/24/2017 5:30 PM T [facility] [employer] HISTORICAL RESULTS Comment:High Risk > 159 mg/d L Cholesterol/HDL Ratio 1.8 08/24/2017 5:30 PM CDT [facility]OR[facility] RES[facility] Comment: Cholesterol / HDL Ratio 3.5:1 or less is desirable. Cholesterol / HDL Ratio greater than 5:1 is considered higher risk for developing heart disease. 08/24/2017 4:57 PM CDT 08/24/2017 4:59 PM CDT Narrative [facility] HISTORICAL RESULTS - 08/24/2017 5:30 PM CDT Comment Glucose, blood, POC [place] Robert Yennydaniel LAB BLOOD ORDERABLES Lulu brijesh Result 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 Source: [facility] [employer]. 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 Source: [facility] [employer]. 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
--- OUTSIDE RECORDS SUMMARY | 2024-07-13 22:59 | XMS_ITS | Clinical Summary ---
Author Organization [facility] [place] [facility] Address [address] [place] [address] Care Team Providers Care Petrol Tanker Driver Name Role Phone Marielena Smallwood MD Primary Care Provider Medications aspirin 81 mg chewable tablet Administer per tube 1 tablet (81 mg total) daily 06/29/19 25 026 Active atorvastatin (LIPITOR) 40 mg tablet Administer per tube 1 tablet (40 mg total) nightly 06/28/19 25 026 Active levETIRAcetam (KEPPRA) 100 mg/mL solution Administer per tube 17.5 mL (1,750 mg total) 2 (two) times a day 06/28/19 25 Active lacosamide (VIMPAT) 10 mg/mL solution Administer 20 mL (200 mg total) per feeding tube 2 (two) times a day 06/28/19 25 Active amLODIPine (NORVASC) 10 mg tablet Administer per tube 1 tablet (10 mg total) daily 06/29/19 25 026 Active apixaban (ELIQUIS) 5 mg tabletIndications: Venous Thrombosis Administer 1 tablet (5 mg total) per feeding tube every 12 (twelve) hours 06/28/19 25 Active cloBAZam (ONFI) 2.5 mg/mL suspensionIndicati ons:Laci-Gastaut Syndrome Treatment Adjunct Administer 4 mL (10 mg total) per feeding tube nightly 06/28/19 25 Active glycopyrrolate (ROBINUL) 1 mg tablet Administer per tube 1 tablet (1 mg total) 2 (two) times a day 06/28/19 25 026 Active insulin lispro (HumaLOG, ADMELOG) 100 unit/mL [...] by nebulization every 6 (six) hours 06/28/19 25 Active metoprolol tartrate (LOPRESSOR) 25 mg immediate [...] Take 1 tablet by mouth daily 08/22/19 025 Discontin ued(Stop Taking at Discharge ) [...] mouth 2 (two) times a day 08/22/19 025 Discontin ued(Stop Taking at Discharge ) levETIRAcetam (Keppra) 1,000 mg tablet Take 2 tablets by mouth every 12 hours 08/23/19 21 025 Discontin ued(Stop Taking at [...] 06/28/2024 Assessment & Plan (06/28/2024 11:42 AM TOLL TEST WORKER): Now back on full TF's sugars running mildly high. Monitor with q4 accuchecks and SSI. Hypophosphatemia 06/27/2024 Assessment & Plan (06/28/2024 11:44 AM TOLL TEST WORKER): <0.7 ? 2/2 refeeding syndrome. Started on neutraphos 2pkg QID 06/26. Still Phos<0.7 06/27. Tx with IV NaPhos 30mmoles and cont per tube replacement and monitor closely. -06/28: Phos=3.3, reduce nuetraphos to 1 PKG BID and monitor History of DVT (deep vein thrombosis) 06/26/2024 Assessment & Plan (06/26/2024 1:32 PM TOLL TEST WORKER): -On anticoagulation with Eliquis 5 mg po BID for hx of DVT -per chart review hx of Left Subclavian vein DVT diagnosed 24 H/O: GI bleed 06/25/2024 Assessment & Plan (06/26/2024 1:32 PM TOLL TEST WORKER): - recent admission at [facility] ( 06-07-24 [...] [facility] as peviously arranged Tracheostomy in place ([facility]) 06/25/2024 Assessment & Plan (06/26/2024 1:36 PM TOLL TEST WORKER): Tracheostomy dependence, has a Shiley #4 cuffed. Pt followed at [facility], per notes trach in place for pulmonary toilet due to his copious secretions and ongoing aspiration of his secretions. -needing frequent suctioning -sats stable on 28% FIO2 by HHTC -Was getting VEST at SNF Low grade fever 06/20/2024 Assessment & Plan (06/26/2024 1:34 PM TOLL TEST WORKER): Low-grade fever and tachycardia, softer BP after [...] 06/17/2024 Assessment & Plan (06/28/2024 11:43 AM TOLL TEST WORKER): -patient at admission with a G tube, was getting continous tube feedings at SNF and not tolerating, -was changed to bolus [...] underwent G tube conversion to GJ at [facility] 12/14/22 (additional documented GJ tube procedures at [facility] most recent 09/09/23). Pt ' feeding tube fell off and pt had 18 Croatian G tube placed at [facility] ED on 04/21/24 (records on care everywhere)and after that he has not tolerated well tube feedings per discussion with his sister Ms Hilliard,Adriane [phone] POA - consulted IR 06-20-24 for conversion [...] goal 06/25, adjust FWF per hydration status, fancy stitcher to follow up -On full TF's-osmolite 1.5. Phos repleted. Copious oral secretions 06/13/2024 Assessment & Plan (06/26/2024 1:29 PM TOLL TEST WORKER): Patient on chronic glycopyrrolate due to secretions, held at admission 07/01 to potential for constipation with plan to add back when he's had a bowel movements -resume on 06-19- hold on 06-20 due to somnolence. Suction PRN - restart glycopyrrolate 1mg BID 06/26 and monitor Abdominal pain 06/12/2024 Assessment & Plan (06/26/2024 1:23 PM TOLL TEST WORKER): -p/w abdominal distention from SNF to ED on 06-12 ,reported biliary emesis per halfway (approximately 300 cc) , not associated fevers or change in bowel habits. Feeding tube placed to gravity drainage in ED H&P notes regular bowel movements. CT scan on 06-12 in ED with stool in the rectum and sigmoid. [place] likely constipation contributing to the patient's abdominal [...] 06/12/2024 Assessment & Plan (06/26/2024 12:08 AM TOLL TEST WORKER): Complicated by left LE AKA. History of CVA (cerebrovascular accident) 2020 Assessment & Plan (06/26/2024 1:32 PM TOLL TEST WORKER): - hx of RT parietal CVA- hx of dementia Cont asa and statin Essential hypertension 12/11/2020 Assessment & Plan (06/26/2024 1:30 PM TOLL TEST WORKER): - on metoprolol and norvasc, held with soft BP 06-19 - resume metoprolol 06-21 -resume amlodipine 1-24 - Monitor Hyperlipidemia 12/11/2020 Assessment & Plan (06/12/2024 3:47 PM TOLL TEST WORKER): - Continue home statin Seizure 12/10/2020 Assessment & Plan (06/26/2024 1:36 PM TOLL TEST WORKER): History of seizure disorder secondary to traumatic brain injury. Currently on valproate, Vimpat, Keppra and Cobazam - Continue home medication, valproate level low at admit 48 on 06-12, 48 on 06-13, Valproic acid level 76 06-19 prior to dose, lacosamide level 1.4 on 06/12, 9.6 on 06-19 Followed by Neurology at [facility] Cognitive communication deficit 08/25/2020 Cerebrovascular accident 06/13/2019 [...] specified rheumatoid arthritis, unspecifie d site 06/26/2015 Encounters Date Type Department Care Team Description 07/08/2024 7:52 PM TOLL TEST WORKER - 07/09/2024 7:48 AM TOLL TEST WORKER Emergency [facility] Emergency Department [address] [place] [address] Tri Martinez MD Thomas, Cherie Edwards MD Tracheostomy complication, unspecified complication type (HCC) (Primary Dx); Balanitis Discharge Disposition: Discharge to home or self care 06/12/2024 10:26 AM TOLL TEST WORKER - 06/28/2024 5:25 PM TOLL TEST WORKER Hospital Encounter [facility] [address] [place] [address] Shakila Jung MD Choi, Cheuk Ho Jeffrey, MD Nelson, MD Juliane Osullivan Robert F. 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 (CMS/HCC) (HCC) Followed up at [facility] ([facility]) Degenerative cervical spinal stenosis Family History Medical History Relation Name Comments Coronary artery disease Father Stroke Father Hypertension Mother Relation Name Status Comments Father Mother Social History Tobacco Use Types Packs/Day Years Used Date Smoking Tobacco: Former Cigarettes Smokeless Tobacco: Current Tobacco Cessation:Counseling Given: Yes [employer] Utilities Answer Date Recorded In the past 12 months has [employer], gas, oil, or water [employer] threatened to shut off services in your [...] often do you attend chur ch or taoist services? Never 06/18/2024 Do you belong to any clubs o r organizations such as confucianist groups, unions, fraternal or athletic groups, or [...] money to buy more. Never true 06/18/19 Within the past 12 months, t he [...] any time in the past [facility], were you homeless or living in a residential (including now)? No 06/18/2024 Personal Safety Answer Date Recorded Have you ever been in or are you currently in a harmful physical or emotional relationship or is someone making you feel afraid or unsafe? Denies 07/08/2024 Sex and Gender Information Value Date Recorded Sex Assigned at Not on file Legal Sex Male 6:11 AM TOLL TEST WORKER Gender Identity Not on file Sexual Orientation Not on file Obstetrics History Last Filed Vital Signs Vital Sign Reading Time Taken Comments Blood Pressure 145/83 07/09/2024 6:00 AM TOLL TEST WORKER Pulse 91 07/09/2024 6:00 AM TOLL TEST WORKER Temperature 36.5 C (97.7 F) 07/09/2024 6:31 AM TOLL TEST WORKER Respiratory Rate 10 07/09/2024 6:00 AM TOLL TEST WORKER Oxygen Saturation 100% 07/09/2024 6:00 AM TOLL TEST WORKER Inhaled Oxygen Concentration - - Weight 79.8 kg (176 lb) 07/09/2024 2:16 AM TOLL TEST WORKER Height 182.9 cm (6') 07/09/2024 2:16 AM TOLL TEST WORKER Body Mass Index 23.87 07/09/2024 2:16 AM TOLL TEST WORKER Plan of Treatment Health Maintenance Due Date Last Done Comments Albumin Creatinine Ratio, Urine 1961 Colon Cancer Screening-Colonoscopy 1961 Prostate Cancer Screening-PSA 1961 Dilated Eye Exam 1961 Foot Exam 1961 Hepatitis B Screening 1979 Regular Well Visit/Exam 18-64 1979 Zoster Vaccine (1 of 2) 2011 Pneumococcal vaccine <65 (2 of 2 - PCV) 02/03/2017 02/04/2016, 08/13/2015, 02/07/2015 Covid-19 Vaccine (4 - 2023-2 5 season) 2024 04/06/2021, 07/02/2020, 06/11/2020 Influenza Vaccine (#1) 2024 , 03/16/2021, 03/07/2020, Additional history exists Hemoglobin A1C 12/10/2024 06/12/2024, 06/19/2015 Lipid Panel 06/08/2025 06/08/2024, 07/29, 02/02/2016, Additional history exists Depression Screening 06/12/2025 06/12/2024 eGFR 07/08/2025 07/08/2024, 05/31, 06/26/2024, Additional history exists DTaP/Tdap/Td Vaccine (3 - Td or Tdap) 06/06/2027 06/06/2017, 03/23/2017 Hepatitis C Screening Completed 06/26/2024 Procedures Procedure Name Priority Date/Time Associated Diagnosis Comments POCT RAPID HIV ANTIBODY COMMUNITY SCREENING-ISSA ELIGIBLE STAT 07/09/2024 5:32 AM TOLL TEST WORKER SEPSIS LACTATE WITH REFLEX Timed 07/09/2024 4:33 AM TOLL TEST WORKER ED PERIPHERAL LINE INSERTION Routine 07/09/2024 1:18 AM TOLL TEST WORKER SEPSIS LACTATE WITH REFLEX Timed 07/09/2024 1:15 AM TOLL TEST WORKER RPR STAT 07/09/2024 1:15 AM TOLL TEST WORKER N. GONORRHOEAE/C. TRACHOMATIS AMPLIFICATION STAT 07/09/2024 1:02 AM TOLL TEST WORKER URINALYSIS AND REFLEX TO MICROSCOPIC AND CULTURE STAT 07/09/2024 1:02 AM TOLL TEST WORKER ED PERIPHERAL LINE INSERTION Routine 07/08/2024 10:11 [address] TOLL TEST [address] CHEST ABDOMEN PELVIS W CONTRAST ED 07/08/2024 9:55 PM TOLL TEST WORKER EGFR STAT 07/08/2024 8:56 PM TOLL TEST WORKER DIFFERENTIAL AUTO STAT 07/08/2024 8:5 6 PM TOLL TEST WORKER SEPSIS LACTATE WITH REFLEX STAT 07/08/2024 8:56 PM TOLL TEST WORKER LIPASE STAT 07/08/2024 8:56 PM TOLL TEST WORKER COMPREHENSIVE METABOLIC PANEL STAT 07/08/2024 8:56 PM TOLL TEST WORKER CBC WITH AUTO DIFFERENTIAL STAT 07/08/2024 8:56 PM TOLL TEST WORKER RESPIRATORY PATHOGEN PANEL STAT 07/08/2024 8:56 PM TOLL TEST WORKER ECG 12-LEAD Routine 07/08/2024 8:28 PM TOLL TEST WORKER XR CHEST 1 VIEW ED 07/08/2024 8:18 PM TOLL TEST WORKER POCT GLUCOSE DEVICE Routine 06/28/2024 4:24 PM TOLL TEST WORKER POCT GLUCOSE DEVICE Routine 06/28/2024 1 2:30 PM TOLL TEST WORKER POCT GLUCOSE DEVICE Routine 06/28/2024 7 :43 AM TOLL TEST WORKER POCT GLUCOSE DEVICE Routine 06/28/2024 4 :01 AM TOLL TEST WORKER POCT GLUCOSE DEVICE Routine 06/27/2024 1 1:28 PM TOLL TEST WORKER EGFR Routine 06/27/2024 9:30 PM TOLL TEST WORKER PHOSPHORUS Routine 06/27/2024 9:30 PM TOLL TEST WORKER MAGNESIUM Routine 06/27/2024 9:30 PM TOLL TEST WORKER BASIC METABOLIC PANEL Routine 06/27/2024 9:30 PM TOLL TEST WORKER POCT GLUCOSE DEVICE Routine 06/27/2024 8 :39 PM TOLL TEST WORKER POCT GLUCOSE DEVICE Routine 06/27/2024 5 :10 PM TOLL TEST WORKER POCT GLUCOSE DEVICE Routine 06/27/2024 4 :27 PM TOLL TEST WORKER POCT GLUCOSE DEVICE Routine 06/27/2024 1 :06 PM TOLL TEST WORKER POCT GLUCOSE DEVICE Routine 06/27/2024 9 :59 AM TOLL TEST WORKER EGFR Routine 06/26/2024 10:21 PM TOLL TEST WORKER DIFFERENTIAL AUTO Routine 06/26/2024 10: 21 PM TOLL TEST WORKER PHOSPHORUS Routine 06/26/2024 10:21 PM TOLL TEST WORKER MAGNESIUM Routine 06/26/2024 10:21 PM TOLL TEST WORKER CBC WITH AUTO DIFFERENTIAL Routine 06/26/2024 10:21 PM TOLL TEST WORKER BASIC METABOLIC PANEL Routine 06/26/2024 10:21 PM TOLL TEST WORKER HEPATITIS B SURFACE ANTIGEN Routine 06/26/2024 10:21 PM TOLL TEST WORKER PHOSPHORUS Routine 06/26/2024 3:21 PM TOLL TEST WORKER RPR Routine 06/26/2024 3:21 PM TOLL TEST WORKER HEPATITIS C ANTIBODY Routine 06/26/2024 3:21 PM TOLL TEST WORKER HIV 1/2 ANTIBODY PLUS P24 ANTIGEN Routine 06/26/2024 3:21 PM TOLL TEST WORKER EGFR Routine 06/26/2024 12:16 AM TOLL TEST WORKER PHOSPHORUS Routine 06/26/2024 12:16 AM TOLL TEST WORKER MAGNESIUM Routine 06/26/2024 12:16 AM TOLL TEST WORKER BASIC METABOLIC PANEL Routine 06/26/2024 12:16 AM TOLL TEST WORKER POCT GLUCOSE DEVICE Routine 06/23/2024 1 1:36 AM TOLL TEST WORKER CBC WITHOUT DIFFERENTIAL Timed 06/23/2024 9:07 AM TOLL TEST WORKER VANCOMYCIN LEVEL TROUGH Routine 06/23/2024 9:00 AM TOLL TEST WORKER EGFR Routine 06/23/2024 9:00 AM TOLL TEST WORKER MAGNESIUM Routine 06/23/2024 9:00 AM TOLL TEST WORKER PHOSPHORUS Routine 06/23/2024 9:00 AM TOLL TEST WORKER BASIC METABOLIC PANEL Routine 06/23/2024 9:00 AM TOLL TEST WORKER G TO GJ-TUBE REPLACEMENT IP Routine 06/22/2024 1:24 PM TOLL TEST WORKER C. DIFFICILE TESTING Routine 06/21/2024 11:11 AM TOLL TEST WORKER INFECTION PREVENTION VRE CULTURE Routine 06/21/2024 11:10 AM TOLL TEST WORKER VANCOMYCIN LEVEL TROUGH Timed 06/21/2024 7:16 AM TOLL TEST WORKER EGFR Routine 06/21/2024 5:03 AM TOLL TEST WORKER DIFFERENTIAL AUTO Routine 06/21/2024 5:0 3 AM TOLL TEST WORKER PHOSPHORUS Timed 06/21/2024 5:03 AM TOLL TEST WORKER MAGNESIUM Routine 06/21/2024 5:03 AM TOLL TEST WORKER COMPREHENSIVE METABOLIC PANEL Routine 06/21/2024 5:03 AM TOLL TEST WORKER CBC WITH AUTO DIFFERENTIAL Routine 06/21/2024 5:03 AM TOLL TEST WORKER MSSA/MRSA (STAPHYLOCOCCUS AUREUS) CULTURE Routine 06/20/2024 10:30 PM TOLL TEST WORKER XR ABDOMEN AP 1 VIEW IP Routine 06/20/2024 10:29 AM TOLL TEST WORKER URINALYSIS, MICROSCOPIC ONLY Routine 06/19/2024 9:34 PM TOLL TEST WORKER URINALYSIS AND REFLEX TO MICROSCOPIC AND CULTURE Routine 06/19/2024 9:34 PM TOLL TEST WORKER DIFFERENTIAL AUTO Routine 06/19/2024 9:2 8 PM TOLL TEST WORKER CBC WITH AUTO DIFFERENTIAL Routine 06/19/2024 9:28 PM TOLL TEST WORKER VALPROIC ACID LEVEL, TOTAL Timed 06/19/2024 9:28 PM TOLL TEST WORKER LACOSAMIDE Routine 06/19/2024 9:28 PM TOLL TEST WORKER RESPIRATORY PATHOGEN PANEL Routine 06/19/2024 9:10 PM TOLL TEST WORKER AEROBIC CULTURE AND GRAM STAIN Routine 06/19/2024 6:53 PM TOLL TEST WORKER XR CHEST 1 VIEW IP Routine 06/19/2024 6:47 PM TOLL TEST WORKER RESPIRATORY PATHOGEN PANEL Routine 06/19/2024 6:46 PM TOLL TEST WORKER XR ABDOMEN AP 1 VIEW IP Routine 06/19/2024 4:09 PM TOLL TEST WORKER XR CHEST 1 VIEW IP Routine 06/19/2024 4:08 PM TOLL TEST WORKER EGFR Timed 06/19/2024 2:47 PM TOLL TEST WORKER DIFFERENTIAL AUTO Timed 06/19/2024 2:4 7 PM TOLL TEST WORKER PHOSPHORUS Timed 06/19/2024 2:47 PM TOLL TEST WORKER MAGNESIUM Timed 06/19/2024 2:47 PM TOLL TEST WORKER COMPREHENSIVE METABOLIC PANEL Timed 06/19/2024 2:47 PM TOLL TEST WORKER CBC WITH AUTO DIFFERENTIAL Timed 06/19/2024 2:47 PM TOLL TEST WORKER POCT GLUCOSE DEVICE Routine 06/19/2024 2 :25 PM TOLL TEST WORKER XR ABDOMEN AP 1 VIEW IP Routine 06/16/2024 6:16 PM TOLL TEST WORKER EGFR Routine 06/16/2024 12:42 PM TOLL TEST WORKER DIFFERENTIAL AUTO Routine 06/16/2024 12: 42 PM TOLL TEST WORKER PHOSPHORUS Routine 06/16/2024 12:42 PM TOLL TEST WORKER MAGNESIUM Routine 06/16/2024 12:42 PM TOLL TEST WORKER COMPREHENSIVE METABOLIC PANEL Routine 06/16/2024 12:42 PM TOLL TEST WORKER CBC WITH AUTO DIFFERENTIAL Routine 06/16/2024 12:42 PM TOLL TEST WORKER XR ABDOMEN AP 1 VIEW ED Urgent/IP Urgent 06/15/2024 1:57 AM TOLL TEST WORKER EGFR Routine 06/13/2024 4:59 AM TOLL TEST WORKER DIFFERENTIAL AUTO Routine 06/13/2024 4:5 9 AM TOLL TEST WORKER VALPROIC ACID LEVEL, TOTAL Routine 06/13/2024 4:59 AM TOLL TEST WORKER CBC WITH AUTO DIFFERENTIAL Routine 06/13/2024 4:59 AM TOLL TEST WORKER PHOSPHORUS Routine 06/13/2024 4:59 AM TOLL TEST WORKER MAGNESIUM Routine 06/13/2024 4:59 AM TOLL TEST WORKER COMPREHENSIVE METABOLIC PANEL Routine 06/13/2024 4:59 AM TOLL TEST WORKER LACOSAMIDE Routine 06/13/2024 4:59 AM TOLL TEST WORKER BLOOD CULTURE Routine 06/13/2024 4:59 AM TOLL TEST WORKER TSH Routine 06/12/2024 3:51 PM TOLL TEST WORKER DIFFERENTIAL AUTO Routine 06/12/2024 3:3 0 PM TOLL TEST WORKER CBC WITH AUTO DIFFERENTIAL Routine 06/12/2024 3:30 PM TOLL TEST WORKER HEMOGLOBIN A1C Routine 06/12/2024 3:30 PM TOLL TEST WORKER TROPONIN I HIGH-SENSITIVITY 4-HOUR Timed 06/12/2024 3:27 PM TOLL TEST WORKER XR CHEST 1 VIEW ED 06/12/2024 2:47 PM TOLL TEST WORKER URINALYSIS AND REFLEX TO MICROSCOPIC AND CULTURE STAT 06/12/2024 2:38 PM TOLL TEST WORKER DIFFERENTIAL AUTO STAT 06/12/2024 2:2 3 PM TOLL TEST WORKER CBC WITH AUTO DIFFERENTIAL STAT 06/12/2024 2:23 PM TOLL TEST WORKER TROPONIN I HIGH-SENSITIVITY 2-HOUR Timed 06/12/2024 1:56 [address] ABDOMEN PELVIS W CONTRAST ED 06/12/2024 12:22 PM TOLL TEST WORKER ED PERIPHERAL LINE INSERTION Routine 06/12/2024 11:50 AM TOLL TEST WORKER INFLUENZA A/B, RSV, AND COVID-19 PCR Routine 06/12/2024 11:39 AM TOLL TEST WORKER POCT CREATININE - DEVICE Routine 06/12/2024 11:29 AM TOLL TEST WORKER EGFR STAT 06/12/2024 11:22 AM TOLL TEST WORKER DIFFERENTIAL AUTO STAT 06/12/2024 11: 22 AM TOLL TEST WORKER TROPONIN I HIGH-SENSITIVITY SERIES (BASELINE, 2HR, 4HR, 6HR) STAT 06/12/2024 11:22 AM TOLL TEST WORKER LIPASE STAT 06/12/2024 11:22 AM TOLL TEST WORKER CBC WITH AUTO DIFFERENTIAL STAT 06/12/2024 11:22 AM TOLL TEST WORKER COMPREHENSIVE METABOLIC PANEL STAT 06/12/2024 11:22 AM TOLL TEST WORKER VALPROIC ACID LEVEL, TOTAL STAT 06/12/2024 11:22 AM TOLL TEST WORKER ECG 12-LEAD Routine 06/12/2024 11:01 AM TOLL TEST WORKER TNI WITH LIPID PANEL Routine 08/24/2017 4:57 PM CDT from Last 3 Months or Most Recently Relevant to Health Maintenance Results * POCT Rapid HIV Antibody Community Screening-Issa Eligible (07/09/2024 5:32 AM TOLL TEST WORKER) Rapid HIV, POC Negative Negative Lot Number [id number] QC Control Line Acceptable Blood 07/09/2024 5:32 AM TOLL TEST WORKER Naa Tam MD POINT OF CARE TEST ORDER NICHOLE Final Result * Sepsis Lactate w/ Reflex (07/09/2024 4:33 AM TOLL TEST WORKER) Pathologist [facility] Sepsis Lactate 2.0 0.7 - 2.0 mmol/L Blood 07/09/2024 4:33 AM TOLL TEST WORKER 07/09/2024 4:42 AM TOLL TEST WORKER us Naa Tam MD LAB BLOOD ORDERABLES Fin al Result Performing Organization Address City/State/[facility] Co de Phone Number [facility] Department [place] [address] * ED PERIPHERAL LINE INSERTION (07/09/2024 1:18 AM TOLL TEST WORKER) Narrative Cherie Damian MD - 07/09/2024 1:18 AM TOLL TEST WORKER Atul Barba MD 07/09/2024 1:18 AM Peripheral [...] procedure: Tolerated well, no immediate complications us Cherie Damian MD IN CLINIC/BEDSIDE ORDERABL ES Final Result * (ABNORMAL) Sepsis Lactate w/ Reflex (07/09/2024 1:15 AM TOLL TEST WORKER) Sepsis Lactate 2.8(H) 0.7 - 2.0 mmol/L Blood 07/09/2024 1:15 AM TOLL TEST WORKER 07/09/2024 1:46 AM TOLL TEST WORKER Result [facility] Naa Tam MD LAB BLOOD ORDERABLES Fin al Result Performing Organization Address City/[facility]/ZIP Co de Phone Number [facility] [place] [address] * RPR Blood (07/09/2024 1:15 AM TOLL TEST WORKER) Pathologist [facility] RPR Nonreactive Nonreactive Blood 07/09/2024 1:15 AM TOLL TEST WORKER 07/09/2024 1:40 AM TOLL TEST WORKER Result [facility] Naa Tam MD LAB MICROBIOLOGY - GENER AL ORDERABLES Final Result Performing Organization Address [facility] de Phone Number [facility] [place] [address] * N. gonorrhoeae/C. trachomatis Amplification Urine (07/09/2024 1:02 AM TOLL TEST WORKER) Pathologist [facility] C. trachomatis Not Detected Not Detected [facility] N. gonorrhoeae Not Detected Not Detected [facility] Comment: Interpretive Data This assay detects Chlamydia trachomatis and Neisseria gonorrhoeae by nucleic acid amplification testing (NAAT). This assay has been cleared by the [place] Food and Drug administration. The performance characteristics of this test have been verified by the [facility] Molecular Infectious Disease laboratory. The performance characteristics of this test have not been evaluated in individuals less than 14 years of age. Current Interpretive Data last revised 2023. Urine (None) 07/09/2024 1:02 AM TOLL TEST WORKER 07/09/2024 1:35 AM TOLL TEST WORKER Result [facility] Naa Tam MD LAB MICROBIOLOGY - GENER AL ORDERABLES Final Result [facility] [place] [address] [facility] * (ABNORMAL) Urinalysis reflex to microscopic and culture Urine, clean voided (07/09/2024 1:02 AM TOLL TEST WORKER) Color, ur Straw Yellow Clarity, ur Clear Clear [facility] Specific gravity, ur >1.042(H) 1.003 - 1.030 [facility] pH, urine 7.5 [facility] Comment: Interpretive Data U rine pH is affected by diet, medications, systemic acid-base disturbances, and renal tubular function. pH may affect urinary stone formation. For example, urine pH below 6.0 may help reduce the tendency for calcium phosphate stones and pH greater than 6.0 may reduce the tendency for uric acid stone formation. Source: [facility] Current Interpretive Data was last revised on 2017 Protein, ur ql Trace Negative [facility] Glucose, ur ql Negative Negative [facility] Ketones, ur Negative Negative [facility] Bilirubin, ur Negative Negative [facility] Blood, ur Negative Negative [facility] Urobilinogen, ur <2.0 <2.0 mg/dL [facility] Nitrite, ur Negative Negative [facility] Leukocyte esterase, ur Negative Negative [facility] UA reflex comment Reflex conditions for microscopic UA and culture not met. [facility] Urine, clean voided 07/09/2024 1:02 AM TOLL TEST WORKER 07/09/2024 1:15 AM TOLL TEST WORKER us Naa Tam MD LAB MICROBIOLOGY - GENER AL ORDERABLES Final Result Performing Organization Address [facility]/ZIP Co de Phone Number [facility] [place] [address] * ED PERIPHERAL LINE INSERTION (07/08/2024 10:11 PM TOLL TEST WORKER) Narrative Tri Martinez MD - 07/08/2024 10:11 PM TOLL TEST WORKER Atul Barba MD 07/08/2024 10:12 PM Peripheral [...] Abdomen Pelvis W Contrast (07/08/2024 9:55 PM TOLL TEST WORKER) Anatomical Region Laterality Modality Body N/A Computed Tomogra phy 07/08/2024 10:3 2 PM TOLL TEST WORKER Impressions 07/09/2024 7:23 AM TOLL TEST WORKER Liquid stool within the colon, indicative of diarrheal state. Otherwise, no acute abnormalities in the abdomen or pelvis. Dictated by: Delia Morton MD The radiology attending physician has personally reviewed this study, and had reviewed and/or edited this written report and agrees with it. Electronically signed by: Marlon Kohler M.D. Narrative 07/09/2024 7:23 AM TOLL TEST WORKER EXAMINATION: Computed tomography of the chest, abdomen [...] Sepsis Lactate w/ Reflex (07/08/2024 8:56 PM TOLL TEST WORKER) Pathologist [facility] Sepsis Lactate 2.4(H) 0.7 - 2.0 mmol/L Blood 07/08/2024 8:56 PM TOLL TEST WORKER 07/08/2024 9:24 PM TOLL TEST WORKER us Naa Tam MD LAB BLOOD ORDERABLES Fin al Result [facility] Department [place] [address] * eGFR (07/08/2024 8:56 PM TOLL TEST WORKER) Pathologist [facility] eGFR >90 >=60 mL/min/1. 73 m2 Comment: [...] last reviewed 2021. Blood 07/08/2024 8:56 PM TOLL TEST WORKER 07/08/2024 9:26 PM TOLL TEST WORKER us Naa Tam MD LAB BLOOD ORDERABLES Fin al Result [facility] [place] [address] * Differential, auto (07/08/2024 8:56 PM TOLL TEST WORKER) Neutrophil abs 4.4 1.5 - 6.5 K/cumm Imm gran abs 0.0 0.0 - 0.1 K/cumm [facility] Lymphocyte abs 2.6 0.8 - 3.3 K/cumm [facility] Monocyte abs 0.5 0.2 - 0.8 K/cumm [facility] Eosinophil abs 0.5 0.0 - 0.5 K/cumm [facility] Basophil abs 0.0 0.0 - 0.1 K/cumm [facility] Neutrophil pct 54.7 % [facility] Comment: Interpretive Data Percent cell count reference ranges are not reported, since discordance with absolute values may lead to misinterpretation of CBC data. Current Interpretive Data was last revised on 2017. Imm gran pct 0.2 % [facility] Comment: Interpretive Data Percent cell count reference ranges are not reported, since discordance with absolute values may lead to misinterpretation of CBC data. Current Interpretive Data was last revised on 2017. Lymphocyte pct 32.1 % [facility] Comment: Interpretive Data Percent cell count reference ranges are not reported, since discordance with absolute values may lead to misinterpretation of CBC data. Current Interpretive Data was last revised on 2017. Monocyte pct 6.6 % [facility] Comment: Interpretive Data Percent cell count reference ranges are not reported, since discordance with absolute values may lead to misinterpretation of CBC data. Current Interpretive Data was last revised on 2017. Eosinophil pct 6.0 % [facility] Comment: Interpretive Data Percent cell count reference ranges are not reported, since discordance with absolute values may lead to misinterpretation of CBC data. Current Interpretive Data was last revised on 2017. Basophil pct 0.4 % [facility] Comment: Interpretive Data Percent cell count reference ranges are not reported, since discordance with absolute values may lead to misinterpretation of CBC data. Current Interpretive Data was last revised on 2017. Blood 07/08/2024 8:56 PM TOLL TEST WORKER 07/08/2024 9:27 PM TOLL TEST WORKER us Naa Tam MD LAB BLOOD ORDERABLES Fin al Result [facility] [place] [address] * Respiratory pathogen panel Nasopharyngeal (07/08/2024 8:56 PM TOLL TEST WORKER) Pathologist [facility] Influenza A RNA Not Detected Not Detected Influenza B RNA Not Detected Not Detected [facility] RSV RNA Not Detected Not Detected [facility] COVID-19 RNA Not Detected Not Detected [facility] Coronavirus 229E RNA Not Detected Not Detected [facility] Coronavirus HKU1 RNA Not Detected Not Detected [facility] Coronavirus NL63 RNA Not Detected Not Detected [facility] Coronavirus OC43 RNA Not Detected Not Detected [facility] Adenovirus DNA Not Detected Not Detected [facility] Metapneumovirus RNA Not Detected Not Detected [facility] Rhinovirus/Enterov irus RNA Not Detected Not Detected [facility] Parainfluenza 1 RNA Not Detected Not Detected [facility] Parainfluenza 2 RNA Not Detected Not Detected [facility] Parainfluenza 3 RNA Not Detected Not Detected [facility] Parainfluenza 4 RNA Not Detected Not Detected [facility] B. pertussis DNA Not Detected Not Detected [facility] B. parapertussis DNA Not Detected Not Detected [facility] C. pneumoniae DNA Not Detected Not Detected [facility] M. pneumoniae DNA Not Detected Not Detected [facility] Nasopharyngeal 07/08/2024 8: 56 PM TOLL TEST WORKER 07/08/2024 9:25 PM TOLL TEST WORKER Narrative [facility] - 07/08/2024 10:16 PM TOLL TEST WORKER Is the Patient experiencing symptoms consistent with COVID?->Yes Surveillance testing for transplant patient?->No Interpretive Data The [employer] FilmArray Respiratory Panel (RP2.1) assay is a [...] assay has FDA clearance for testing of LEARNING SUPPORT ASSISTANT swabs. The performance of additional specimen types has been assessed by the performing laboratory. The performance characteristics of this assay have been determined by [facility] Infectious Disease [facility]. Current interpretive data was last revised on 22. us Naa Tam MD LAB MICROBIOLOGY - [facility] ORDERABLES Final Result [facility] [place] [address] * (ABNORMAL) CBC with auto differential (07/08/2024 8:56 PM TOLL TEST WORKER) WBC 8.0 3.8 - 9.9 K/cumm Hgb 14.4 13.0 - 17.5 g/dL [facility] Hct 43.3 38.9 - 50.3 % [facility] Plt 236 150 - 400 K/cumm [facility] MPV 12.4(H) 9.1 - 12.3 fL [facility] RBC 4.49 4.30 - 5.80 M/cumm [facility] MCV 96.4 81.3 - 96.4 fL [facility] MCH 32.1 27.1 - 33.3 pg [facility] MCHC 33.3 32.3 - 35.7 g/dL [facility] RDW CV 13.5 11.1 - 14.9 % [facility] RDW SD 47.9 35.7 - 48.1 fL [facility] NRBC abs 0.00 0.00 - 0.01 K/cumm [facility] Blood 07/08/2024 8:56 PM TOLL TEST WORKER 07/08/2024 9:27 PM TOLL TEST WORKER us Naa Tam MD LAB BLOOD ORDERABLES Fin al Result Performing Organization Address City/[facility]/ZIP Co de Phone Number [facility] [place] [address] * Lipase (07/08/2024 8:56 PM TOLL TEST WORKER) Pathologist [facility] Lipase 32 10 - 99 Units/L Blood 07/08/2024 8:56 PM TOLL TEST WORKER 07/08/2024 9:26 PM TOLL TEST WORKER us Naa Tam MD LAB BLOOD ORDERABLES Fin al Result Performing Organization Address [facility] de Phone Number [facility] [place] [address] * (ABNORMAL) Comprehensive metabolic panel (07/08/2024 8:56 PM TOLL TEST WORKER) [facility] Sodium 141 135 - 145 mmol/L Potassium, pl 4.5 3.3 - 4.9 mmol/L [facility] Chloride 102 97 - 110 mmol/L [facility] CO2 28 22 - 32 mmol/L [facility] Anion gap 11 2 - 15 mmol/L [facility] BUN 15 6 - 25 mg/dL [facility] Creatinine 0.63(L) 0.80 - 1.30 mg/dL [facility] Glucose 110 70 - 199 mg/dL [facility] Comment: Interpretive Data Fasting glucose >/= 126 [...] 2022. Calcium 10.1 8.5 - 10.3 mg/dL [facility] Bilirubin, total 0.2 0.1 - 1.2 mg/dL [facility] Protein, pl 8.0 6.5 - 8.5 g/dL [facility] Albumin 4.1 3.5 - 5.0 g/dL [facility] Alk phos 110 40 - 130 Units/L [facility] ALT 28 7 - 55 Units/L [facility] AST 26 10 - 50 Units/L [facility] Blood 07/08/2024 8:56 PM TOLL TEST WORKER 07/08/2024 9:26 PM TOLL TEST WORKER us Naa Tam MD LAB BLOOD ORDERABLES Fin al Result Performing Organization Address [facility] Co de Phone Number [facility] [place] [address] * ECG 12-LEAD (07/08/2024 8:28 PM TOLL TEST WORKER) Narrative [facility] - 07/08/2024 8:28 PM TOLL TEST WORKER Naa Tam MD 07/08/2024 8:30 PM ECG [...] ORDERABLES Final Re sult Performing Organization Address [facility]/ZIP Co de Phone Number [facility] * XR Chest 1 View (07/08/2024 8:18 PM TOLL TEST WORKER) Anatomical Region Laterality Modality Body, Chest N/A Computed Radiogr aphy 07/08/2024 8:28 PM TOLL TEST WORKER Impressions 07/08/2024 9:56 PM TOLL TEST WORKER Comparison is made to chest graft dated [...] Sekou Wolf M.D. Narrative 07/08/2024 9:56 PM TOLL TEST WORKER EXAMINATION: 1 view chest radiograph Procedure Note [...] Result * POCT glucose (06/28/2024 4:24 PM TOLL TEST WORKER) Glucose, POC 191 70 - 199 mg/dL Blood 06/28/2024 4:24 PM TOLL TEST WORKER 06/28/2024 4:24 PM TOLL TEST WORKER us Kami Dupont MD LAB POCT ORDERABLES - DEV ICE Final Result [facility] [place] [address] * POCT glucose (06/28/2024 12:30 PM TOLL TEST WORKER) Glucose, POC 197 70 - 199 mg/dL Blood 06/28/2024 12:3 0 PM TOLL TEST WORKER 06/28/2024 12:30 PM TOLL TEST WORKER Kami Dupont MD LAB POCT ORDERABLES - DEV ICE Final Result Performing Organization Address [facility] Co de Phone Number [facility] [place] [address] * POCT glucose (06/28/2024 7:43 AM TOLL TEST WORKER) Glucose, POC 191 70 - 199 mg/dL Blood 06/28/2024 7:43 AM TOLL TEST WORKER 06/28/2024 7:43 AM TOLL TEST WORKER Kami Dupont MD LAB POCT ORDERABLES - DEV ICE Final Result Performing Organization Address [facility] de Phone Number [facility] [place] [address] * POCT glucose (06/28/2024 4:01 AM TOLL TEST WORKER) Glucose, POC 173 70 - 199 mg/dL Blood 06/28/2024 4:01 AM TOLL TEST WORKER 06/28/2024 4:01 AM TOLL TEST WORKER Kami Dupont MD LAB POCT ORDERABLES - DEV ICE Final Result Performing Organization Address [facility] Co de Phone Number [facility] [place] [address] * (ABNORMAL) POCT glucose (06/27/2024 11:28 PM TOLL TEST WORKER) Glucose, POC 220(H) 70 - 199 mg/dL Comment:Use Protocol Glucose comment 1 Use Protocol [facility] Blood 06/27/2024 11:2 8 PM TOLL TEST WORKER 06/27/2024 11:28 PM TOLL TEST WORKER Kami Dupont MD LAB POCT ORDERABLES - DEV ICE Final Result Performing Organization Address [facility] Co de Phone Number [facility] [place] [address] * eGFR (06/27/2024 9:30 PM TOLL TEST WORKER) eGFR >90 >=60 mL/min/1. 73 m2 Comment: [...] last reviewed 2021. Blood 06/27/2024 9:30 PM TOLL TEST WORKER 06/27/2024 9:45 PM TOLL TEST WORKER Kami Dupont MD LAB BLOOD ORDERABLES Lulu l Result Performing Organization Address [facility]/ZIP Co de Phone Number [facility] [place] [address] * Phosphorus (06/27/2024 9:30 PM TOLL TEST WORKER) Phosphorus, pl 3.3 2.3 - 4.5 mg/dL Comment:Repeated and Verifie d Blood 06/27/2024 9:30 PM TOLL TEST WORKER 06/27/2024 9:45 PM TOLL TEST WORKER Kami Dupont MD LAB BLOOD ORDERABLES Lulu l Result Performing Organization Address [facility]/ZIP Co de Phone Number [facility] [place] [address] * Magnesium (06/27/2024 9:30 PM TOLL TEST WORKER) Pathologist [facility] Magnesium 1.9 1.4 - 2.5 mg/dL Blood 06/27/2024 9:30 PM TOLL TEST WORKER 06/27/2024 9:45 PM TOLL TEST WORKER Kami Dupont MD LAB BLOOD ORDERABLES Lulu l Result Performing Organization Address [facility] de Phone Number [facility] [place] [address] * (ABNORMAL) Basic metabolic panel (06/27/2024 9:30 PM TOLL TEST WORKER) [facility] Sodium 141 135 - 145 mmol/L Potassium, pl 4.4 3.3 - 4.9 mmol/L [facility] Chloride 105 97 - 110 mmol/L [facility] CO2 28 22 - 32 mmol/L [facility] Anion gap 8 2 - 15 mmol/L [facility] BUN 9 6 - 25 mg/dL [facility] Creatinine 0.47(L) 0.80 - 1.30 mg/dL [facility] Glucose 208(H) 70 - 199 mg/dL [facility] Comment: Interpretive Data Fasting glucose >/= 126 [...] 2022. Calcium 8.9 8.5 - 10.3 mg/dL [facility] Blood 06/27/2024 9:30 PM TOLL TEST WORKER 06/27/2024 9:45 PM TOLL TEST WORKER Kami Dupont MD LAB BLOOD ORDERABLES Lulu l Result Performing Organization Address [facility] Co de Phone Number [facility] [place] [address] * POCT glucose (06/27/2024 8:39 PM TOLL TEST WORKER) Glucose, POC 195 70 - 199 mg/dL Blood 06/27/2024 8:39 PM TOLL TEST WORKER 06/27/2024 8:39 PM TOLL TEST WORKER Kami Dupont MD LAB POCT ORDERABLES - DEV ICE Final Result Performing Organization Address [facility] de Phone Number [facility] [place] [address] * POCT glucose (06/27/2024 5:10 PM TOLL TEST WORKER) Glucose, POC 194 70 - 199 mg/dL Blood 06/27/2024 5:10 PM TOLL TEST WORKER 06/27/2024 5:10 PM TOLL TEST WORKER Kami Dupont MD LAB POCT ORDERABLES - DEV ICE Final Result Performing Organization Address [facility] Co de Phone Number [facility] [place] [address] * (ABNORMAL) POCT glucose (06/27/2024 4:27 PM TOLL TEST WORKER) Glucose, POC 224(H) 70 - 199 mg/dL Blood 06/27/2024 4:27 PM TOLL TEST WORKER 06/27/2024 4:27 PM TOLL TEST WORKER Kami Dupont MD LAB POCT ORDERABLES - DEV ICE Final Result Performing Organization Address [facility] Co de Phone Number [facility] [place] [address] * POCT glucose (06/27/2024 1:06 PM TOLL TEST WORKER) Glucose, POC 173 70 - 199 mg/dL Blood 06/27/2024 1:06 PM TOLL TEST WORKER 06/27/2024 1:06 PM TOLL TEST WORKER Kami Dupont MD LAB POCT ORDERABLES - DEV ICE Final Result Performing Organization Address [facility] de Phone Number [facility] [place] [address] * POCT glucose (06/27/2024 9:59 AM TOLL TEST WORKER) Glucose, POC 158 70 - 199 mg/dL Blood 06/27/2024 9:59 AM TOLL TEST WORKER 06/27/2024 9:59 AM TOLL TEST WORKER Kami Dupont MD LAB POCT ORDERABLES - DEV ICE Final Result Performing Organization Address [facility] Co de Phone Number [facility] [place] [address] * eGFR (06/26/2024 10:21 PM TOLL TEST WORKER) eGFR >90 >=60 mL/min/1. 73 m2 Comment: [...] reviewed 2021. Blood 06/26/2024 10:2 1 PM TOLL TEST WORKER 06/26/2024 10:53 PM TOLL TEST WORKER us Kami Dupont MD LAB BLOOD ORDERABLES Lulu coley Result [facility] [place] [address] * Differential, auto (06/26/2024 10:21 PM TOLL TEST WORKER) Neutrophil abs 5.0 1.5 - 6.5 K/cumm Imm gran abs 0.0 0.0 - 0.1 K/cumm [facility] Lymphocyte abs 2.4 0.8 - 3.3 K/cumm [facility] Monocyte abs 0.8 0.2 - 0.8 K/cumm [facility] Eosinophil abs 0.4 0.0 - 0.5 K/cumm [facility] Basophil abs 0.0 0.0 - 0.1 K/cumm [facility] Neutrophil pct 58.2 % [facility] Comment: Interpretive Data Percent cell count reference ranges are not reported, since discordance with absolute values may lead to misinterpretation of CBC data. Current Interpretive Data was last revised on 2017. Imm gran pct 0.3 % [facility] Comment: Interpretive Data Percent cell count reference ranges are not reported, since discordance with absolute values may lead to misinterpretation of CBC data. Current Interpretive Data was last revised on 2017. Lymphocyte pct 27.9 % [facility] Comment: Interpretive Data Percent cell count reference ranges are not reported, since discordance with absolute values may lead to misinterpretation of CBC data. Current Interpretive Data was last revised on 2017. Monocyte pct 9.2 % [facility] Comment: Interpretive Data Percent cell count reference ranges are not reported, since discordance with absolute values may lead to misinterpretation of CBC data. Current Interpretive Data was last revised on 2017. Eosinophil pct 4.1 % [facility] Comment: Interpretive Data Percent cell count reference ranges are not reported, since discordance with absolute values may lead to misinterpretation of CBC data. Current Interpretive Data was last revised on 2017. Basophil pct 0.3 % [facility] Comment: Interpretive Data Percent cell count reference ranges are not reported, since discordance with absolute values may lead to misinterpretation of CBC data. Current Interpretive Data was last revised on 2017. Blood 06/26/2024 10:2 1 PM TOLL TEST WORKER 06/26/2024 10:53 PM TOLL TEST WORKER us Kami Dupont MD LAB BLOOD ORDERABLES Lulu coley Result [facility] [place] [address] * (ABNORMAL) CBC with auto differential (06/26/2024 10:21 PM TOLL TEST WORKER) WBC 8.6 3.8 - 9.9 K/cumm Hgb 13.1 13.0 - 17.5 g/dL [facility] Hct 39.1 38.9 - 50.3 % [facility] Plt 173 150 - 400 K/cumm [facility] MPV 13.1(H) 9.1 - 12.3 fL [facility] RBC 4.07(L) 4.30 - 5.80 M/cumm [facility] MCV 96.1 81.3 - 96.4 fL [facility] MCH 32.2 27.1 - 33.3 pg [facility] MCHC 33.5 32.3 - 35.7 g/dL [facility] RDW CV 13.5 11.1 - 14.9 % [facility] RDW SD 47.8 35.7 - 48.1 fL [facility] NRBC abs 0.00 0.00 - 0.01 K/cumm [facility] Blood 06/26/2024 10:2 1 PM TOLL TEST WORKER 06/26/2024 10:53 PM TOLL TEST WORKER Kami Dupont MD LAB BLOOD ORDERABLES Lulu l Result Performing Organization Address [facility] Co de Phone Number [facility] [place] [address] * Hepatitis B Surface Antigen Blood (06/26/2024 10:21 PM TOLL TEST WORKER) HepBsAg Nonreactive Nonreactive Blood 06/26/2024 10:2 1 PM TOLL TEST WORKER 06/26/2024 10:53 PM TOLL TEST WORKER Kami Dupont MD LAB MICROBIOLOGY - GENERA L ORDERABLES Final Result Performing Organization Address [facility] de Phone Number [facility] [place] [address] * (ABNORMAL) Phosphorus (06/26/2024 10:21 PM TOLL TEST WORKER) Phosphorus, pl <0.7(L) 2.3 - 4.5 mg/dL Comment:Repeated and Verifie d Blood 06/26/2024 10:2 1 PM TOLL TEST WORKER 06/26/2024 10:53 PM TOLL TEST WORKER Kami Dupont MD LAB BLOOD ORDERABLES Lulu l Result Performing Organization Address [facility] [place] [address] * Magnesium (06/26/2024 10:21 PM TOLL TEST WORKER) Magnesium 2.0 1.4 - 2.5 mg/dL Blood 06/26/2024 10:2 1 PM TOLL TEST WORKER 06/26/2024 10:53 PM TOLL TEST WORKER Kami Dupont MD LAB BLOOD ORDERABLES Lulu coley Result Performing Organization Address City/[facility]/ZIP Co de Phone Number [facility] [place] [address] * (ABNORMAL) Basic metabolic panel (06/26/2024 10:21 PM TOLL TEST WORKER) [facility] Sodium 141 135 - 145 mmol/L Potassium, pl 4.7 3.3 - 4.9 mmol/L [facility] Chloride 106 97 - 110 mmol/L [facility] CO2 28 22 - 32 mmol/L [facility] Anion gap 7 2 - 15 mmol/L [facility] BUN 11 6 - 25 mg/dL [facility] Creatinine 0.47(L) 0.80 - 1.30 mg/dL [facility] Glucose 213(H) 70 - 199 mg/dL [facility] Comment: Interpretive Data Fasting glucose >/= 126 [...] 2022. Calcium 9.3 8.5 - 10.3 mg/dL [facility] Blood 06/26/2024 10:2 1 PM TOLL TEST WORKER 06/26/2024 10:53 PM TOLL TEST WORKER Kami Dupont MD LAB BLOOD ORDERABLES Lulu l Result Performing Organization Address [facility]/ZIP Co de Phone Number [facility] [place] [address] * HIV 1/2 Antibody plus p24 Antigen Blood (06/26/2024 3:21 PM TOLL TEST WORKER) HIV 1/2 ab + p24 ag Nonreactive Nonreactive Comment:Nonreactive for HIV- 1 antigen and HIV-1/HIV-2 antibodies. No laboratory evidence of HIV infection. If acute HIV infection is suspected, consider testing for HIV-1 RNA. Current interpretive data was last revised on 22. Blood 06/26/2024 3:21 PM TOLL TEST WORKER 06/26/2024 3:41 PM TOLL TEST WORKER Kami Dupont MD LAB MICROBIOLOGY - GENERA L ORDERABLES Final Result Performing Organization Address [facility] Co de Phone Number [facility] [place] [address] * Hepatitis C antibody Blood (06/26/2024 3:21 PM TOLL TEST WORKER) Hep C Ab Nonreactive Nonreactive Comment:Antibodies to HCV no t detected. Does NOT exclude the possibility of recent exposure to HCV. Current interpretive data was last revised on 22 Blood 06/26/2024 3:21 PM TOLL TEST WORKER 06/26/2024 3:41 PM TOLL TEST WORKER Kami Dupont MD LAB MICROBIOLOGY - GENERA L ORDERABLES Final Result Performing Organization Address [facility] Co de Phone Number [facility] [place] [address] * RPR Blood (06/26/2024 3:21 PM TOLL TEST WORKER) RPR Nonreactive Nonreactive Blood 06/26/2024 3:21 PM TOLL TEST WORKER 06/26/2024 3:41 PM TOLL TEST WORKER Kami Dupont MD LAB MICROBIOLOGY - GENERA L ORDERABLES Final Result Performing Organization Address [facility] Co de Phone Number [facility] [place] [address] * (ABNORMAL) Phosphorus (06/26/2024 3:21 PM TOLL TEST WORKER) Phosphorus, pl 0.7(L) 2.3 - 4.5 mg/dL Comment:Repeated and Verifie d Blood 06/26/2024 3:21 PM TOLL TEST WORKER 06/26/2024 3:41 PM TOLL TEST WORKER Kami Dupont MD LAB BLOOD ORDERABLES Lulu l Result Performing Organization Address City/[facility]/ZIP Co de Phone Number [facility] [place] [address] * eGFR (06/26/2024 12:16 AM TOLL TEST WORKER) eGFR >90 >=60 mL/min/1. 73 m2 Comment: [...] reviewed 2021. Blood 06/26/2024 12:1 6 AM TOLL TEST WORKER 06/26/2024 12:39 AM TOLL TEST WORKER us Patricia Bryant MD LAB BLOOD ORDERABLES Final Res ult Performing Organization Address City/[facility]/ZIP Co de Phone Number [facility] [place] [address] * (ABNORMAL) Phosphorus (06/26/2024 12:16 AM TOLL TEST WORKER) [facility] Phosphorus, pl <0.7(L) 2.3 - 4.5 mg/dL Comment:Repeated and Verifie d Blood 06/26/2024 12:1 6 AM TOLL TEST WORKER 06/26/2024 12:39 AM TOLL TEST WORKER Patricia Bryant MD LAB BLOOD ORDERABLES Final Res ult Performing Organization Address City/[facility]/ZIP Co de Phone Number [facility] [place] [address] * Magnesium (06/26/2024 12:16 AM TOLL TEST WORKER) [facility] Magnesium 1.9 1.4 - 2.5 mg/dL Blood 06/26/2024 12:1 6 AM TOLL TEST WORKER 06/26/2024 12:39 AM TOLL TEST WORKER Patricia Bryant MD LAB BLOOD ORDERABLES Final Res ult Performing Organization Address [facility] de Phone Number [facility] [place] [address] * (ABNORMAL) Basic metabolic panel (06/26/2024 12:16 AM TOLL TEST WORKER) [facility] Sodium 142 135 - 145 mmol/L Potassium, pl 4.4 3.3 - 4.9 mmol/L [facility] Comment:Hemolyzed; Potassium value may be falsely elevated by as much as 0.3-0.5 mmol/L. Suggest redraw and reanalysis. Chloride 109 97 - 110 mmol/L [facility] CO2 29 22 - 32 mmol/L [facility] Anion gap 4 2 - 15 mmol/L [facility] BUN 13 6 - 25 mg/dL [facility] Creatinine 0.53(L) 0.80 - 1.30 mg/dL [facility] Glucose 177 70 - 199 mg/dL [facility] Comment: Interpretive Data Fasting glucose >/= 126 [...] 2022. Calcium 9.0 8.5 - 10.3 mg/dL [facility] Blood 06/26/2024 12:1 6 AM TOLL TEST WORKER 06/26/2024 12:39 AM TOLL TEST WORKER Patricia Bryant MD LAB BLOOD ORDERABLES Final Res ult Performing Organization Address [facility] de Phone Number [facility] [place] [address] * POCT glucose (06/23/2024 11:36 AM TOLL TEST WORKER) Glucose, POC 95 70 - 199 mg/dL Blood 06/23/2024 11:3 6 AM TOLL TEST WORKER 06/23/2024 11:36 AM TOLL TEST WORKER Patricia Bryant MD LAB POCT ORDERABLES - DEVICE F inal Result Performing Organization Address [facility] de Phone Number [facility] [place] [address] * (ABNORMAL) CBC without differential (06/23/2024 9:07 AM TOLL TEST WORKER) WBC 4.7 3.8 - 9.9 K/cumm Hgb 12.5(L) 13.0 - 17.5 g/dL [facility] Hct 37.4(L) 38.9 - 50.3 % [facility] Plt 145(L) 150 - 400 K/cumm [facility] MPV 12.6(H) 9.1 - 12.3 fL [facility] RBC 3.94(L) 4.30 - 5.80 M/cumm [facility] MCV 94.9 81.3 - 96.4 fL [facility] MCH 31.7 27.1 - 33.3 pg [facility] MCHC 33.4 32.3 - 35.7 g/dL [facility] RDW CV 12.9 11.1 - 14.9 % [facility] RDW SD 45.1 35.7 - 48.1 fL [facility] NRBC abs 0.00 0.00 - 0.01 K/cumm [facility] Blood 06/23/2024 9:07 AM TOLL TEST WORKER 06/23/2024 9:28 AM TOLL TEST WORKER us Patricia Bryant MD LAB BLOOD ORDERABLES Final Res ult [facility] [place] [address] * eGFR (06/23/2024 9:00 AM TOLL TEST WORKER) eGFR >90 >=60 mL/min/1. 73 m2 Comment: [...] data was last reviewed 2021. Blood 06/23/2024 9:0 0 AM TOLL TEST WORKER 06/23/2024 10:59 AM TOLL TEST WORKER us Patricia Bryant MD LAB BLOOD ORDERABLES Final Res ult Performing Organization Address [facility] Co de Phone Number [facility] [place] [address] * Phosphorus (06/23/2024 9:00 AM TOLL TEST WORKER) Phosphorus, pl 2.3 2.3 - 4.5 mg/dL Blood 06/23/2024 9:00 AM TOLL TEST WORKER 06/23/2024 10:59 AM TOLL TEST WORKER Patricia Bryant MD LAB BLOOD ORDERABLES Final Res ult Performing Organization Address [facility] [place] [address] * Magnesium (06/23/2024 9:00 AM TOLL TEST WORKER) Magnesium 1.7 1.4 - 2.5 mg/dL Blood 06/23/2024 9:00 AM TOLL TEST WORKER 06/23/2024 10:59 AM TOLL TEST WORKER Patricia Bryant MD LAB BLOOD ORDERABLES Final Res ult Performing Organization Address [facility] de Phone Number [facility] [place] [address] * Vancomycin level trough (06/23/2024 9:00 AM TOLL TEST WORKER) Vancomycin trough 15.2 10.0 - 20.0 mcg/mL Blood 06/23/2024 9:00 AM TOLL TEST WORKER 06/23/2024 10:59 AM TOLL TEST WORKER us Patricia Bryant MD LAB BLOOD ORDERABLES Final Res ult Performing Organization Address [facility] de Phone Number [facility] [place] [address] * (ABNORMAL) Basic metabolic panel (06/23/2024 9:00 AM TOLL TEST WORKER) Sodium 143 135 - 145 mmol/L Potassium, pl 3.7 3.3 - 4.9 mmol/L [facility] Chloride 108 97 - 110 mmol/L [facility] CO2 28 22 - 32 mmol/L [facility] Anion gap 7 2 - 15 mmol/L [facility] BUN 3(L) 6 - 25 mg/dL [facility] Creatinine 0.50(L) 0.80 - 1.30 mg/dL [facility] Glucose 271(H) 70 - 199 mg/dL [facility] Comment: Interpretive Data Fasting glucose >/= 126 [...] 2022. Calcium 9.0 8.5 - 10.3 mg/dL [facility] Blood 06/23/2024 9:00 AM TOLL TEST WORKER 06/23/2024 10:59 AM TOLL TEST WORKER us Patricia Bryant MD LAB BLOOD ORDERABLES Final Res ult [facility] [place] [address] * IR G To GJ-Tube Replacement (06/22/2024 1:24 PM TOLL TEST WORKER) Anatomical Region Laterality Modality Body N/A X-Ray Angiograph y 06/22/2024 1:47 PM TOLL TEST WORKER Impressions 06/22/2024 4:13 PM TOLL TEST WORKER Successful percutaneous 18 Fr 45 cm gastrojejunostomy [...] Sean Hillman M.D. Narrative 06/22/2024 4:13 PM TOLL TEST WORKER EXAMINATION: GASTROJEJUNOSTOMY TUBE EXCHANGE HISTORY/INDICATION: 64 yo [...] procedure. TECHNIQUE: Prior to beginning the procedure, Slade Protocol was performed to confirm the patient's [...] placed in the proximal jejunum. A 18 Croatian, 45 cm long JELLY single/double lumen gastrojejunostomy [...] procedure. TECHNIQUE: Prior to beginning the procedure, Slade Protocol was performed to confirm the patient's [...] placed in the proximal jejunum. A 18 Croatian, 45 cm long JELLY single/double lumen gastrojejunostomy [...] it. Electronically signed by: Sean Hillman M.D. Patricia Bryant MD IM IR PROCEDURES Final Result * C. difficile testing Stool (06/21/2024 11:11 AM TOLL TEST WORKER) [facility] Result Negative Negative Toxin Result Negative Negative [facility] C. diff result Negative, free toxin Negative, free toxin [facility] C. diff interp Negative for toxigenic Clostridioides (Clostridium) difficile. Analysis was performed using a glutamate dehydrogenase antigen detection assay combined with a C. difficile toxin detection assay. [facility] Stool 06/21/2024 11:1 1 AM TOLL TEST WORKER 06/21/2024 12:55 PM TOLL TEST WORKER Narrative [facility] - 06/21/2024 2:38 PM TOLL TEST WORKER Testing for C. difficile is not recommended within 4 days of a negative result, 10 days of a positive, or 24 hours after laxative administration. If this order is clinically indicated, contact the lab and enter the passcode to complete this order.->[id number] Patricia Bryant MD LAB MICROBIOLOGY - GENERAL ORD ERABLES Final Result Performing Organization Address City/[facility] Co de Phone Number [facility] [place] [address] * Infection Prevention VRE Culture Stool (06/21/2024 11:10 AM TOLL TEST WORKER) Report Final Report: Negative Stool 06/21/2024 11:1 0 AM TOLL TEST WORKER 06/21/2024 2:41 PM TOLL TEST WORKER Narrative [facility] 06/23/2024 11:15 PM TOLL TEST WORKER Surveillance culture for Infection Prevention purposes only; results indicate colonization, not infection requiring treatment. Testing performed by [facility] Microbiology Laboratory ([phone]). Patricia Bryant MD LAB MICROBIOLOGY - GENERAL ORD ERABLES Final Result [facility] [place] [address] * Vancomycin level trough Draw trough 30 minutes prior to 4th dose. (06/21/2024 7:16 AM TOLL TEST WORKER) Vancomycin trough 16.8 10.0 - 20.0 mcg/mL Blood 06/21/2024 7:16 AM TOLL TEST WORKER 06/21/2024 7:27 AM TOLL TEST WORKER Narrative [facility] - 06/21/2024 8:10 AM TOLL TEST WORKER Draw trough 30 minutes prior to 4th dose. Patricia Bryant MD LAB BLOOD ORDERABLES Final Res ult Performing Organization Address City/[facility]/ZIP Co de Phone Number [facility] [place] [address] * eGFR (06/21/2024 5:03 AM TOLL TEST WORKER) eGFR >90 >=60 mL/min/1. 73 m2 Comment: [...] last reviewed 2021. Blood 06/21/2024 5:03 AM TOLL TEST WORKER 06/21/2024 5:14 AM TOLL TEST WORKER Patricia Bryant MD LAB BLOOD ORDERABLES Final Res ult Performing Organization Address City/[facility]/ZIP Co de Phone Number [facility] [place] [address] * Differential, auto (06/21/2024 5:03 AM TOLL TEST WORKER) Neutrophil abs 1.7 1.5 - 6.5 K/cumm Imm gran abs 0.0 0.0 - 0.1 K/cumm [facility] Lymphocyte abs 1.7 0.8 - 3.3 K/cumm [facility] Monocyte abs 0.6 0.2 - 0.8 K/cumm [facility] Eosinophil abs 0.3 0.0 - 0.5 K/cumm [facility] Basophil abs 0.0 0.0 - 0.1 K/cumm [facility] Neutrophil pct 38.8 % [facility] Comment: Interpretive Data Percent cell count reference ranges are not reported, since discordance with absolute values may lead to misinterpretation of CBC data. Current Interpretive Data was last revised on 2017. Imm gran pct 0.2 % [facility] Comment: Interpretive Data Percent cell count reference ranges are not reported, since discordance with absolute values may lead to misinterpretation of CBC data. Current Interpretive Data was last revised on 2017. Lymphocyte pct 40.5 % [facility] Comment: Interpretive Data Percent cell count reference ranges are not reported, since discordance with absolute values may lead to misinterpretation of CBC data. Current Interpretive Data was last revised on 2017. Monocyte pct 13.4 % [facility] Comment: Interpretive Data Percent cell count reference ranges are not reported, since discordance with absolute values may lead to misinterpretation of CBC data. Current Interpretive Data was last revised on 2017. Eosinophil pct 6.6 % [facility] Comment: Interpretive Data Percent cell count reference ranges are not reported, since discordance with absolute values may lead to misinterpretation of CBC data. Current Interpretive Data was last revised on 2017. Basophil pct 0.5 % [facility] Comment: Interpretive Data Percent cell count reference ranges are not reported, since discordance with absolute values may lead to misinterpretation of CBC data. Current Interpretive Data was last revised on 2017. Blood 06/21/2024 5:03 AM TOLL TEST WORKER 06/21/2024 5:14 AM TOLL TEST WORKER us Patricia Bryant MD LAB BLOOD ORDERABLES Final Res ult [facility] [place] [address] * (ABNORMAL) CBC with auto differential (06/21/2024 5:03 AM TOLL TEST WORKER) Pathologist [facility] WBC 4.3 3.8 - 9.9 K/cumm Hgb 11.6(L) 13.0 - 17.5 g/dL [facility] Hct 34.5(L) 38.9 - 50.3 % [facility] Plt 132(L) 150 - 400 K/cumm [facility] MPV 11.3 9.1 - 12.3 fL [facility] RBC 3.53(L) 4.30 - 5.80 M/cumm [facility] MCV 97.7(H) 81.3 - 96.4 fL [facility] MCH 32.9 27.1 - 33.3 pg [facility] MCHC 33.6 32.3 - 35.7 g/dL [facility] RDW CV 13.4 11.1 - 14.9 % [facility] RDW SD 48.0 35.7 - 48.1 fL [facility] NRBC abs 0.00 0.00 - 0.01 K/cumm [facility] Blood 06/21/2024 5:03 AM TOLL TEST WORKER 06/21/2024 5:14 AM TOLL TEST WORKER Patricia Bryant MD LAB BLOOD ORDERABLES Final Res ult Performing Organization Address City/[facility] Co de Phone Number [facility] [place] [address] * Phosphorus (06/21/2024 5:03 AM TOLL TEST WORKER) Pathologist [facility] Phosphorus, pl 3.1 2.3 - 4.5 mg/dL Blood 06/21/2024 5:03 AM TOLL TEST WORKER 06/21/2024 5:14 AM TOLL TEST WORKER Patricia Bryant MD LAB BLOOD ORDERABLES Final Res ult Performing Organization Address [facility]/ZIP Co de Phone Number [facility] [place] [address] * Magnesium (06/21/2024 5:03 AM TOLL TEST WORKER) Magnesium 1.9 1.4 - 2.5 mg/dL Blood 06/21/2024 5:03 AM TOLL TEST WORKER 06/21/2024 5:14 AM TOLL TEST WORKER us Patricia Bryant MD LAB BLOOD ORDERABLES Final Res ult [facility] [place] [address] * (ABNORMAL) Comprehensive metabolic panel (06/21/2024 5:03 AM TOLL TEST WORKER) Pathologist [facility] Sodium 145 135 - 145 mmol/L Potassium, pl 3.4 3.3 - 4.9 mmol/L [facility] Chloride 112(H) 97 - 110 mmol/L [facility] CO2 27 22 - 32 mmol/L [facility] Anion gap 6 2 - 15 mmol/L [facility] BUN 9 6 - 25 mg/dL [facility] Creatinine 0.57(L) 0.80 - 1.30 mg/dL [facility] Glucose 106 70 - 199 mg/dL [facility] Comment: Interpretive Data Fasting glucose >/= 126 [...] 2022. Calcium 8.6 8.5 - 10.3 mg/dL [facility] Bilirubin, total 0.2 0.1 - 1.2 mg/dL [facility] Protein, pl 5.6(L) 6.5 - 8.5 g/dL [facility] Albumin 2.7(L) 3.5 - 5.0 g/dL [facility] Alk phos 61 40 - 130 Units/L [facility] ALT 15 7 - 55 Units/L [facility] AST 25 10 - 50 Units/L [facility] Blood 06/21/2024 5:03 AM TOLL TEST WORKER 06/21/2024 5:14 AM TOLL TEST WORKER Patricia Bryant MD LAB BLOOD ORDERABLES Final Res ult Performing Organization Address 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 Microbiology Laboratory ([phone]). Patricia Bryant MD LAB MICROBIOLOGY - GENERAL ORD ERABLES Final Result Performing Organization Address [facility] de Phone Number [facility] [place] [address] * XR Abdomen Ap 1 Vw (06/20/2024 10:29 AM TOLL TEST WORKER) Anatomical Region Laterality Modality Body, Abdomen N/A Computed Radiogr aphy 06/20/2024 10:5 3 AM TOLL TEST WORKER Impressions 06/20/2024 11:51 AM TOLL TEST WORKER Gastrostomy tube. Colonic distention is improved. No radiographic evidence of obstruction. Dictated by: Hunter Hernandez M.D. (Ramanan) The radiology attending physician has personally reviewed this study, and had reviewed and/or edited this written report and agrees with it. Electronically signed by: Byron Moya M.D. Narrative 06/20/2024 11:51 AM TOLL TEST WORKER EXAMINATION: Abdomen, one view. HISTORY: Abdominal distention. [...] and culture Urine, bladder (06/19/2024 9:34 PM TOLL TEST WORKER) Color, ur Straw Yellow Clarity, ur Clear Clear [facility] Specific gravity, ur 1.021 1.003 - 1.030 [facility] pH, urine 7.0 [facility] Comment: Interpretive Data U rine pH is affected by diet, medications, systemic acid-base disturbances, and renal tubular function. pH may affect urinary stone formation. For example, urine pH below 6.0 may help reduce the tendency for calcium phosphate stones and pH greater than 6.0 may reduce the tendency for uric acid stone formation. Source: [place] [facility] Current Interpretive Data was last revised on 2017 Protein, ur ql 1+(A) Negative [facility] Glucose, ur ql Negative Negative [facility] Ketones, ur Negative Negative [facility] Bilirubin, ur Negative Negative [facility] Blood, ur Negative Negative [facility] Urobilinogen, ur <2.0 <2.0 mg/dL [facility] Nitrite, ur Negative Negative [facility] Leukocyte esterase, ur Negative Negative [facility] UA reflex comment Reflex to microscopic UA will be performed. [facility] Urine, bladder 06/19/2024 9: 34 PM TOLL TEST WORKER 06/19/2024 10:05 PM TOLL TEST WORKER Patricia Bryant MD LAB MICROBIOLOGY - GENERAL ORD ERABLES Final Result Performing Organization Address [facility] Co de Phone Number [facility] [place] [address] * Urinalysis, microscopic only (06/19/2024 9:34 PM TOLL TEST WORKER) Pathologist [facility] WBC, ur 0-5 0 - 5 /HPF RBC, ur 0-2 0 - 2 /HPF [facility] Epithelial cells, squamous, ur 1-5 0 - 5 /HPF [facility] Culture Reflex Comment Reflex conditions for urine culture (WBC >10) not met. [facility] Urine, bladder 06/19/2024 9: 34 PM TOLL TEST WORKER 06/19/2024 10:05 PM TOLL TEST WORKER Patricia Bryant MD LAB URINE ORDERABLES Final Res ult Performing Organization Address [facility] de Phone Number [facility] [place] [address] * (ABNORMAL) Differential, auto (06/19/2024 9:28 PM TOLL TEST WORKER) Neutrophil abs 6.0 1.5 - 6.5 K/cumm Imm gran abs 0.0 0.0 - 0.1 K/cumm [facility] Lymphocyte abs 0.7(L) 0.8 - 3.3 K/cumm [facility] Monocyte abs 0.2 0.2 - 0.8 K/cumm [facility] Eosinophil abs 0.2 0.0 - 0.5 K/cumm [facility] Basophil abs 0.0 0.0 - 0.1 K/cumm [facility] Neutrophil pct 84.1 % [facility] Comment: Interpretive Data Percent cell count reference ranges are not reported, since discordance with absolute values may lead to misinterpretation of CBC data. Current Interpretive Data was last revised on 2017. Imm gran pct 0.4 % [facility] Comment: Interpretive Data Percent cell count reference ranges are not reported, since discordance with absolute values may lead to misinterpretation of CBC data. Current Interpretive Data was last revised on 2017. Lymphocyte pct 10.1 % [facility] Comment: Interpretive Data Percent cell count reference ranges are not reported, since discordance with absolute values may lead to misinterpretation of CBC data. Current Interpretive Data was last revised on 2017. Monocyte pct 2.9 % [facility] Comment: Interpretive Data Percent cell count reference ranges are not reported, since discordance with absolute values may lead to misinterpretation of CBC data. Current Interpretive Data was last revised on 2017. Eosinophil pct 2.4 % [facility] Comment: Interpretive Data Percent cell count reference ranges are not reported, since discordance with absolute values may lead to misinterpretation of CBC data. Current Interpretive Data was last revised on 2017. Basophil pct 0.1 % [facility] Comment: Interpretive Data Percent cell count reference ranges are not reported, since discordance with absolute values may lead to misinterpretation of CBC data. Current Interpretive Data was last revised on 2017. Blood 06/19/2024 9:28 PM TOLL TEST WORKER 06/19/2024 10:38 PM TOLL TEST WORKER us Patricia Bryant MD LAB BLOOD ORDERABLES Final Res ult [facility] [place] [address] * Lacosamide level (06/19/2024 9:28 PM TOLL TEST WORKER) Lacosamide 9.6 1.0 - 10.0 mcg/mL [facility] Comment: ADDITIONAL INFORMATION This test was developed and its performance characteristics determined by [facility] in a manner consistent with CLIA requirements. This test has not been cleared or approved by the U.S. Food and Drug Administration. Test Performed by: [facility] [address] [place] [address] Content Writer: Marianela Odonnell Ph.D.; CLIA# [id number] Blood 06/19/2024 9:28 PM TOLL TEST WORKER 06/19/2024 11:01 PM TOLL TEST WORKER Narrative [facility] - 06/22/2024 10:25 AM TOLL TEST WORKER Please get level before lacosamide dose is given us Patricia Bryant MD LAB BLOOD ORDERABLES Final Res ult [facility] [place] [address] [facility] * (ABNORMAL) CBC with auto differential (06/19/2024 9:28 PM TOLL TEST WORKER) WBC 7.1 3.8 - 9.9 K/cumm Hgb 12.5(L) 13.0 - 17.5 g/dL [facility] Hct 37.0(L) 38.9 - 50.3 % [facility] Plt 152 150 - 400 K/cumm [facility] MPV 12.6(H) 9.1 - 12.3 fL [facility] RBC 3.90(L) 4.30 - 5.80 M/cumm [facility] MCV 94.9 81.3 - 96.4 fL [facility] MCH 32.1 27.1 - 33.3 pg [facility] MCHC 33.8 32.3 - 35.7 g/dL [facility] RDW CV 13.4 11.1 - 14.9 % [facility] RDW SD 46.8 35.7 - 48.1 fL [facility] NRBC abs 0.00 0.00 - 0.01 K/cumm [facility] [facility] Blood 06/19/2024 9:28 PM TOLL TEST WORKER 06/19/2024 10:38 PM TOLL TEST WORKER us Patricia Bryant MD LAB BLOOD ORDERABLES Final Res ult Performing Organization Address [facility] Co de Phone Number [facility] [place] [address] * Valproic acid level, total (06/19/2024 9:28 PM TOLL TEST WORKER) [facility] Valproic Acid 76.0 50.0 - 100.0 mcg/mL Comment: Interpretive Data Therapeutic or toxic effects of anticonvulsant drugs may occur at different concentrations in different patients and the correlation between dose and clinical effect must be evaluated individually. Current interpretative data was last revised on 13. Blood 06/19/2024 9:28 PM TOLL TEST WORKER 06/19/2024 10:39 PM TOLL TEST WORKER Narrative [facility] - 06/19/2024 11:40 PM TOLL TEST WORKER Please get level before dose is given us Patricia Bryant MD LAB BLOOD ORDERABLES Final Res ult Performing Organization Address [facility] Co de Phone Number [facility] [place] [address] * Respiratory pathogen panel Nasopharyngeal (06/19/2024 9:10 PM TOLL TEST WORKER) [facility] Influenza A RNA Not Detected Not Detected Influenza B RNA Not Detected Not Detected [facility] RSV RNA Not Detected Not Detected [facility] COVID-19 RNA Not Detected Not Detected [facility] Coronavirus 229E RNA Not Detected Not Detected [facility] Coronavirus HKU1 RNA Not Detected Not Detected [facility] Coronavirus NL63 RNA Not Detected Not Detected [facility] Coronavirus OC43 RNA Not Detected Not Detected [facility] Adenovirus DNA Not Detected Not Detected [facility] Metapneumovirus RNA Not Detected Not Detected [facility] Rhinovirus/Enterov irus RNA Not Detected Not Detected [facility] Parainfluenza 1 RNA Not Detected Not Detected [facility] Parainfluenza 2 RNA Not Detected Not Detected [facility] Parainfluenza 3 RNA Not Detected Not Detected [facility] Parainfluenza 4 RNA Not Detected Not Detected [facility] B. pertussis DNA Not Detected Not Detected [facility] B. parapertussis DNA Not Detected Not Detected [facility] C. pneumoniae DNA Not Detected Not Detected [facility] M. pneumoniae DNA Not Detected Not Detected [facility] Nasopharyngeal 06/19/2024 9: 10 PM TOLL TEST WORKER 06/19/2024 10:06 PM TOLL TEST WORKER Narrative [facility] - 06/19/2024 11:35 PM TOLL TEST WORKER Is the Patient experiencing symptoms consistent with COVID?->Yes Surveillance testing for transplant patient?->No Interpretive Data The [employer] FilmArray Respiratory Panel (RP2.1) assay is a [...] assay has FDA clearance for testing of LEARNING SUPPORT ASSISTANT swabs. The performance of additional specimen types has been assessed by the performing laboratory. The performance characteristics of this assay have been determined by [facility] Infectious Disease [facility]. Current interpretive data was last revised on 22. Patricia Bryant MD LAB MICROBIOLOGY - GENERAL ORD ERABLES Final Result [facility] [place] [address] * (ABNORMAL) Aerobic culture and gram stain Tracheal aspirate Tracheal (06/19/2024 6:53 PM TOLL TEST WORKER) Direct Specimen Exam Stain: Abundant polymorphonuclear leukocytes seen. Few squamous epithelial cells seen. Moderate mixed bacterial domenico seen on Gram stain. Report Final Report: Greater than or equal to 100,000 colonies/ml of Staphylococcus aureus Methicillin resistant (MRSA) by penicillin binding protein 2a (PBP2a) testing. Plus growth of clinically insignificant bacterial domenico. (.) [facility] Organism STAPHYLOCOCCUS AUREUS [facility] Organism PLUS GROWTH OF CLINICALLY INSIGNIFICANT DOMENICO. [facility] Tracheal aspirate (Tracheal) 06/19/2024 6:53 PM TOLL TEST WORKER 06/19/2024 8:18 PM TOLL TEST WORKER Narrative [facility] - 06/27/2024 2:52 PM TOLL TEST WORKER Testing performed by [facility] Microbiology Laboratory ([phone]) Specimens submitted from normally sterile body sites [...] MICROBIOLOGY - GENERAL ORD ERABLES Final Result [facility] [place] [address] * XR Chest 1 View (06/19/2024 6:47 PM TOLL TEST WORKER) Anatomical Region Laterality Modality Body, Chest N/A Digital Radiogra phy 06/20/2024 2:42 PM TOLL TEST WORKER Impressions 06/20/2024 3:15 PM TOLL TEST WORKER Comparison is made to 06/19/2024 at 3:32 [...] Herve Payne M.D. Narrative 06/20/2024 3:15 PM TOLL TEST WORKER EXAMINATION: 1 view chest radiograph Procedure Note [...] pathogen panel Tracheal aspirate (06/19/2024 6:46 PM TOLL TEST WORKER) Pathologist [facility] Influenza A RNA Not Detected Not Detected Influenza B RNA Not Detected Not Detected [facility] RSV RNA Not Detected Not Detected [facility] COVID-19 RNA Not Detected Not Detected [facility] Coronavirus 229E RNA Not Detected Not Detected [facility] Coronavirus HKU1 RNA Not Detected Not Detected [facility] Coronavirus NL63 RNA Not Detected Not Detected [facility] Coronavirus OC43 RNA Not Detected Not Detected [facility] Adenovirus DNA Not Detected Not Detected [facility] Metapneumovirus RNA Not Detected Not Detected [facility] Rhinovirus/Enterov irus RNA Not Detected Not Detected [facility] Parainfluenza 1 RNA Not Detected Not Detected [facility] Parainfluenza 2 RNA Not Detected Not Detected [facility] Parainfluenza 3 RNA Not Detected Not Detected [facility] Parainfluenza 4 RNA Not Detected Not Detected [facility] B. pertussis DNA Not Detected Not Detected [facility] B. parapertussis DNA Not Detected Not Detected [facility] C. pneumoniae DNA Not Detected Not Detected [facility] M. pneumoniae DNA Not Detected Not Detected [facility] Tracheal aspirate 06/19/2024 6:46 PM TOLL TEST WORKER 06/20/2024 7:55 AM TOLL TEST WORKER Narrative [facility] - 06/20/2024 8:58 AM TOLL TEST WORKER Is the Patient experiencing symptoms consistent with COVID?->Yes Surveillance testing for transplant patient?->No Interpretive Data The [employer] FilmArray Respiratory Panel (RP2.1) assay is a [...] assay has FDA clearance for testing of LEARNING SUPPORT ASSISTANT swabs. The performance of additional specimen types has been assessed by the performing laboratory. The performance characteristics of this assay have been determined by [facility] Infectious Disease [facility]. Current interpretive data was last revised on 22. us Patricia Bryant MD LAB MICROBIOLOGY - GENERAL ORD ERABLES Final Result [facility] [place] [address] * XR Abdomen Ap 1 Vw (06/19/2024 4:09 PM TOLL TEST WORKER) Anatomical Region Laterality Modality Body, Abdomen N/A Digital Radiogra phy 06/19/2024 4:35 PM TOLL TEST WORKER Impressions 06/19/2024 5:03 PM TOLL TEST WORKER Diffuse mild gaseous bowel distention, similar to the prior exam and could represent ileus. Partially imaged gastrostomy tube. Dictated by: Hunter Hernandez M.D. ([place]) The radiology attending physician has personally reviewed this study, and had reviewed and/or edited this written report and agrees with it. Electronically signed by: Lupillo Lugo M.D. Narrative 06/19/2024 5:03 PM TOLL TEST WORKER EXAMINATION: Abdomen, one view. HISTORY: Abdominal pain [...] XR Chest 1 View (06/19/2024 4:08 PM TOLL TEST WORKER) Anatomical Region Laterality Modality Body, Chest N/A Digital Radiogra phy 06/19/2024 4:21 PM TOLL TEST WORKER Impressions 06/19/2024 4:21 PM TOLL TEST WORKER The current study is compared with the [...] Elif Patel M.D. Narrative 06/19/2024 4:21 PM TOLL TEST WORKER EXAMINATION: 1 view chest radiograph Procedure Note [...] Final Result * eGFR (06/19/2024 2:47 PM TOLL TEST WORKER) eGFR >90 >=60 mL/min/1. 73 m2 Comment: [...] last reviewed 2021. Blood 06/19/2024 2:47 PM TOLL TEST WORKER 06/19/2024 3:03 PM TOLL TEST WORKER Patricia Bryant MD LAB BLOOD ORDERABLES Final Res ult [facility] Department [place] [address] * Differential, auto (06/19/2024 2:47 PM TOLL TEST WORKER) Neutrophil abs 5.5 1.5 - 6.5 K/cumm Imm gran abs 0.0 0.0 - 0.1 K/cumm [facility] Lymphocyte abs 0.9 0.8 - 3.3 K/cumm [facility] Monocyte abs 0.2 0.2 - 0.8 K/cumm [facility] Eosinophil abs 0.3 0.0 - 0.5 K/cumm [facility] Basophil abs 0.0 0.0 - 0.1 K/cumm [facility] Neutrophil pct 79.8 % [facility] Comment: Interpretive Data Percent cell count reference ranges are not reported, since discordance with absolute values may lead to misinterpretation of CBC data. Current Interpretive Data was last revised on 2017. Imm gran pct 0.4 % [facility] Comment: Interpretive Data Percent cell count reference ranges are not reported, since discordance with absolute values may lead to misinterpretation of CBC data. Current Interpretive Data was last revised on 2017. Lymphocyte pct 13.4 % [facility] Comment: Interpretive Data Percent cell count reference ranges are not reported, since discordance with absolute values may lead to misinterpretation of CBC data. Current Interpretive Data was last revised on 2017. Monocyte pct 2.5 % [facility] Comment: Interpretive Data Percent cell count reference ranges are not reported, since discordance with absolute values may lead to misinterpretation of CBC data. Current Interpretive Data was last revised on 2017. Eosinophil pct 3.8 % [facility] Comment: Interpretive Data Percent cell count reference ranges are not reported, since discordance with absolute values may lead to misinterpretation of CBC data. Current Interpretive Data was last revised on 2017. Basophil pct 0.1 % [facility] Comment: Interpretive Data Percent cell count reference ranges are not reported, since discordance with absolute values may lead to misinterpretation of CBC data. Current Interpretive Data was last revised on 2017. Blood 06/19/2024 2:47 PM TOLL TEST WORKER 06/19/2024 3:04 PM TOLL TEST WORKER us Patricia Bryant MD LAB BLOOD ORDERABLES Final Res ult [facility] [place] [address] * (ABNORMAL) CBC with auto differential (06/19/2024 2:47 PM TOLL TEST WORKER) [facility] WBC 6.9 3.8 - 9.9 K/cumm Hgb 14.2 13.0 - 17.5 g/dL [facility] Hct 42.4 38.9 - 50.3 % [facility] Plt 135(L) 150 - 400 K/cumm [facility] MPV 12.6(H) 9.1 - 12.3 fL [facility] RBC 4.47 4.30 - 5.80 M/cumm [facility] MCV 94.9 81.3 - 96.4 fL [facility] MCH 31.8 27.1 - 33.3 pg [facility] MCHC 33.5 32.3 - 35.7 g/dL [facility] RDW CV 13.2 11.1 - 14.9 % [facility] RDW SD 46.5 35.7 - 48.1 fL [facility] NRBC abs 0.00 0.00 - 0.01 K/cumm [facility] Blood 06/19/2024 2:47 PM TOLL TEST WORKER 06/19/2024 3:04 PM TOLL TEST WORKER Patricia Bryant MD LAB BLOOD ORDERABLES Final Res ult Performing Organization Address [facility] de Phone Number [facility] [place], [place] [id number] * (ABNORMAL) Phosphorus (06/19/2024 2:47 PM TOLL TEST WORKER) [facility] Phosphorus, pl 2.2(L) 2.3 - 4.5 mg/dL Blood 06/19/2024 2:47 PM TOLL TEST WORKER 06/19/2024 3:03 PM TOLL TEST WORKER Patricia Bryant MD LAB BLOOD ORDERABLES Final Res ult Performing Organization Address [facility] Co de Phone Number [facility] [place] [address] * Magnesium (06/19/2024 2:47 PM TOLL TEST WORKER) Magnesium 2.0 1.4 - 2.5 mg/dL Blood 06/19/2024 2:47 PM TOLL TEST WORKER 06/19/2024 3:03 PM TOLL TEST WORKER us Patricia Bryant MD LAB BLOOD ORDERABLES Final Res ult [facility] [place] [address] * (ABNORMAL) Comprehensive metabolic panel (06/19/2024 2:47 PM TOLL TEST WORKER) Pathologist [facility] Sodium 144 135 - 145 mmol/L Potassium, pl 3.9 3.3 - 4.9 mmol/L [facility] Comment:Hemolyzed; Potassium value may be falsely elevated by as much as 0.3-0.5 mmol/L. Suggest redraw and reanalysis. Chloride 105 97 - 110 mmol/L [facility] CO2 29 22 - 32 mmol/L [facility] Anion gap 10 2 - 15 mmol/L [facility] BUN 7 6 - 25 mg/dL [facility] Creatinine 0.62(L) 0.80 - 1.30 mg/dL [facility] Glucose 113 70 - 199 mg/dL [facility] Comment: Interpretive Data Fasting glucose >/= 126 [...] 2022. Calcium 9.5 8.5 - 10.3 mg/dL [facility] Bilirubin, total 0.2 0.1 - 1.2 mg/dL [facility] Protein, pl 7.2 6.5 - 8.5 g/dL [facility] Albumin 3.7 3.5 - 5.0 g/dL [facility] Alk phos 91 40 - 130 Units/L [facility] ALT 13 7 - 55 Units/L [facility] AST 28 10 - 50 Units/L [facility] Comment:Hemolyzed; result ma y be falsely elevated Blood 06/19/2024 2:47 PM TOLL TEST WORKER 06/19/2024 3:03 PM TOLL TEST WORKER Patricia Bryant MD LAB BLOOD ORDERABLES Final Res ult Performing Organization Address [facility] Co de Phone Number [facility] [place] [address] * POCT glucose (06/19/2024 2:25 PM TOLL TEST WORKER) Glucose, POC 125 70 - 199 mg/dL Blood 06/19/2024 2:25 PM TOLL TEST WORKER 06/19/2024 2:25 PM TOLL TEST WORKER Patricia Bryant MD LAB POCT ORDERABLES - DEVICE F inal Result Performing Organization Address [facility] Phone Number [facility] [place] [address] * XR Abdomen Ap 1 Vw (06/16/2024 6:16 PM TOLL TEST WORKER) Anatomical Region Laterality Modality Body, Abdomen N/A Computed Radiogr aphy 06/16/2024 6:5 6 PM TOLL TEST WORKER Impressions 06/16/2024 6:56 PM TOLL TEST WORKER Gastrostomy tube is present. Aerated bowel seen throughout the abdomen. The gaseous distention is improved from the prior examination. Distal rectal air is not definitively visualized. No pneumoperitoneum. Electronically signed by: Sekou Wolf M.D. Narrative 06/16/2024 6:56 PM TOLL TEST WORKER EXAMINATION: Abdomen, one view. HISTORY: Abdominal distension. [...] Res ult * eGFR (06/16/2024 12:42 PM TOLL TEST WORKER) eGFR >90 >=60 mL/min/1. 73 m2 Comment: [...] reviewed 2021. Blood 06/16/2024 12:4 2 PM TOLL TEST WORKER 06/16/2024 12:49 PM TOLL TEST WORKER us Misael Felix MD LAB BLOOD ORDERABLES Final Result [facility] Department [place] [address] * Differential, auto (06/16/2024 12:42 PM TOLL TEST WORKER) Neutrophil abs 2.5 1.5 - 6.5 K/cumm Imm gran abs 0.0 0.0 - 0.1 K/cumm [facility] Lymphocyte abs 2.4 0.8 - 3.3 K/cumm [facility] Monocyte abs 0.4 0.2 - 0.8 K/cumm [facility] Eosinophil abs 0.4 0.0 - 0.5 K/cumm [facility] Basophil abs 0.0 0.0 - 0.1 K/cumm [facility] Neutrophil pct 42.8 % [facility] Comment: Interpretive Data Percent cell count reference ranges are not reported, since discordance with absolute values may lead to misinterpretation of CBC data. Current Interpretive Data was last revised on 2017. Imm gran pct 0.2 % [facility] Comment: Interpretive Data Percent cell count reference ranges are not reported, since discordance with absolute values may lead to misinterpretation of CBC data. Current Interpretive Data was last revised on 2017. Lymphocyte pct 42.2 % [facility] Comment: Interpretive Data Percent cell count reference ranges are not reported, since discordance with absolute values may lead to misinterpretation of CBC data. Current Interpretive Data was last revised on 2017. Monocyte pct 6.7 % [facility] Comment: Interpretive Data Percent cell count reference ranges are not reported, since discordance with absolute values may lead to misinterpretation of CBC data. Current Interpretive Data was last revised on 2017. Eosinophil pct 7.7 % [facility] Comment: Interpretive Data Percent cell count reference ranges are not reported, since discordance with absolute values may lead to misinterpretation of CBC data. Current Interpretive Data was last revised on 2017. Basophil pct 0.4 % [facility] Comment: Interpretive Data Percent cell count reference ranges are not reported, since discordance with absolute values may lead to misinterpretation of CBC data. Current Interpretive Data was last revised on 2017. Blood 06/16/2024 12:4 2 PM TOLL TEST WORKER 06/16/2024 12:49 PM TOLL TEST WORKER us Misael Felix MD LAB BLOOD ORDERABLES Final Result [facility] [place] [address] * (ABNORMAL) CBC with auto differential (06/16/2024 12:42 PM TOLL TEST WORKER) Pathologist [facility] WBC 5.7 3.8 - 9.9 K/cumm Hgb 12.2(L) 13.0 - 17.5 g/dL [facility] Hct 36.6(L) 38.9 - 50.3 % [facility] Plt 156 150 - 400 K/cumm [facility] MPV 12.6(H) 9.1 - 12.3 fL [facility] RBC 3.85(L) 4.30 - 5.80 M/cumm [facility] MCV 95.1 81.3 - 96.4 fL [facility] MCH 31.7 27.1 - 33.3 pg [facility] MCHC 33.3 32.3 - 35.7 g/dL [facility] RDW CV 13.0 11.1 - 14.9 % [facility] RDW SD 45.1 35.7 - 48.1 fL [facility] NRBC abs 0.00 0.00 - 0.01 K/cumm [facility] Blood 06/16/2024 12:4 2 PM TOLL TEST WORKER 06/16/2024 12:49 PM TOLL TEST WORKER Misael Felix MD LAB BLOOD ORDERABLES Final Result Performing Organization Address [facility] Co de Phone Number [facility] [place] [address] * Phosphorus (06/16/2024 12:42 PM TOLL TEST WORKER) Pathologist [facility] Phosphorus, pl 2.5 2.3 - 4.5 mg/dL Blood 06/16/2024 12:4 2 PM TOLL TEST WORKER 06/16/2024 12:49 PM TOLL TEST WORKER Misael Felix MD LAB BLOOD ORDERABLES Final Result [facility] [place] [address] * Magnesium (06/16/2024 12:42 PM TOLL TEST WORKER) Pathologist [facility] Magnesium 2.0 1.4 - 2.5 mg/dL Blood 06/16/2024 12:4 2 PM TOLL TEST WORKER 06/16/2024 12:49 PM TOLL TEST WORKER Misael Felix MD LAB BLOOD ORDERABLES Final Result [facility] [place] [address] * (ABNORMAL) Comprehensive metabolic panel (06/16/2024 12:42 PM TOLL TEST WORKER) [facility] Sodium 143 135 - 145 mmol/L Potassium, pl 3.5 3.3 - 4.9 mmol/L [facility] Chloride 111(H) 97 - 110 mmol/L [facility] CO2 26 22 - 32 mmol/L [facility] Anion gap 6 2 - 15 mmol/L [facility] BUN 6 6 - 25 mg/dL [facility] Creatinine 0.56(L) 0.80 - 1.30 mg/dL [facility] Glucose 94 70 - 199 mg/dL [facility] Comment: Interpretive Data Fasting glucose >/= 126 [...] 2022. Calcium 8.9 8.5 - 10.3 mg/dL [facility] Bilirubin, total 0.4 0.1 - 1.2 mg/dL [facility] Protein, pl 6.3(L) 6.5 - 8.5 g/dL [facility] Albumin 3.3(L) 3.5 - 5.0 g/dL [facility] Alk phos 79 40 - 130 Units/L [facility] ALT 10 7 - 55 Units/L [facility] AST 18 10 - 50 Units/L [facility] Blood 06/16/2024 12:4 2 PM TOLL TEST WORKER 06/16/2024 12:49 PM TOLL TEST WORKER us Misael Felix MD LAB BLOOD ORDERABLES Final Result [facility] [place] [address] * XR Abdomen Ap 1 Vw (06/15/2024 1:57 AM TOLL TEST WORKER) Anatomical Region Laterality Modality Body, Abdomen N/A Computed Radiogr aphy 06/15/2024 3:15 PM TOLL TEST WORKER Impressions 06/15/2024 4:44 PM TOLL TEST WORKER There is a gastrostomy tube with tip [...] Sean Angel M.D. Narrative 06/15/2024 4:44 PM TOLL TEST WORKER EXAMINATION: Abdomen, one view. HISTORY: Abdominal distension. [...] it. Electronically signed by: Sean Angel M.D. Misael Felix MD IMG XR PROCEDURES Final Res ult * eGFR (06/13/2024 4:59 AM TOLL TEST WORKER) eGFR >90 >=60 mL/min/1. 73 m2 Comment: [...] last reviewed 2021. Blood 06/13/2024 4:59 AM TOLL TEST WORKER 06/13/2024 5:38 AM TOLL TEST WORKER Ryan Jauregui MD LAB BLOOD ORDERABLES Final Resul t [facility] [place] [address] * (ABNORMAL) Differential, auto (06/13/2024 4:59 AM TOLL TEST WORKER) Neutrophil abs 10.3(H) 1.5 - 6.5 K/cumm Imm gran abs 0.1 0.0 - 0.1 K/cumm [facility] Lymphocyte abs 3.0 0.8 - 3.3 K/cumm [facility] Monocyte abs 0.9(H) 0.2 - 0.8 K/cumm [facility] Eosinophil abs 0.2 0.0 - 0.5 K/cumm [facility] Basophil abs 0.0 0.0 - 0.1 K/cumm [facility] Neutrophil pct 70.9 % [facility] Comment: Interpretive Data Percent cell count reference ranges are not reported, since discordance with absolute values may lead to misinterpretation of CBC data. Current Interpretive Data was last revised on 2017. Imm gran pct 0.4 % [facility] Comment: Interpretive Data Percent cell count reference ranges are not reported, since discordance with absolute values may lead to misinterpretation of CBC data. Current Interpretive Data was last revised on 2017. Lymphocyte pct 20.7 % [facility] Comment: Interpretive Data Percent cell count reference ranges are not reported, since discordance with absolute values may lead to misinterpretation of CBC data. Current Interpretive Data was last revised on 2017. Monocyte pct 6.5 % [facility] Comment: Interpretive Data Percent cell count reference ranges are not reported, since discordance with absolute values may lead to misinterpretation of CBC data. Current Interpretive Data was last revised on 2017. Eosinophil pct 1.4 % [facility] Comment: Interpretive Data Percent cell count reference ranges are not reported, since discordance with absolute values may lead to misinterpretation of CBC data. Current Interpretive Data was last revised on 2017. Basophil pct 0.1 % [facility] Comment: Interpretive Data Percent cell count reference ranges are not reported, since discordance with absolute values may lead to misinterpretation of CBC data. Current Interpretive Data was last revised on 2017. Blood 06/13/2024 4:59 AM TOLL TEST WORKER 06/13/2024 5:38 AM TOLL TEST WORKER us Ryan Jauregui MD LAB BLOOD ORDERABLES Final Resul t [facility] [place] [address] * Lacosamide level (06/13/2024 4:59 AM TOLL TEST WORKER) [facility] Lacosamide 1.4 1.0 - 10.0 mcg/mL [facility] Comment: ADDITIONAL INFORMATION This test was developed and its performance characteristics determined by [facility] in a manner consistent with CLIA requirements. This test has not been cleared or approved by the U.S. Food and Drug Administration. Test Performed by: [facility] - [facility] [address] [place] [address] Content Writer: Marianela Odonnell Ph.D.; CLIA# [id number] Blood 06/13/2024 4:59 AM TOLL TEST WORKER 06/13/2024 5:38 AM TOLL TEST WORKER Ryan Jauregui MD LAB BLOOD ORDERABLES Final Resul t [facility] [place] [address] [facility] * (ABNORMAL) CBC with auto differential (06/13/2024 4:59 AM TOLL TEST WORKER) [facility] WBC 14.6(H) 3.8 - 9.9 K/cumm Hgb 13.2 13.0 - 17.5 g/dL [facility] Hct 39.7 38.9 - 50.3 % [facility] Plt 155 150 - 400 K/cumm [facility] MPV 12.4(H) 9.1 - 12.3 fL [facility] RBC 4.03(L) 4.30 - 5.80 M/cumm [facility] MCV 98.5(H) 81.3 - 96.4 fL [facility] MCH 32.8 27.1 - 33.3 pg [facility] MCHC 33.2 32.3 - 35.7 g/dL [facility] RDW CV 13.6 11.1 - 14.9 % [facility] RDW SD 50.2(H) 35.7 - 48.1 fL [facility] NRBC abs 0.00 0.00 - 0.01 K/cumm [facility] Blood 06/13/2024 4:59 AM TOLL TEST WORKER 06/13/2024 5:38 AM TOLL TEST WORKER Ryan Jauregui MD LAB BLOOD ORDERABLES Final Resul t Performing Organization Address [facility]/ZIP Co de Phone Number [facility] [place] [address] * Blood culture Blood (06/13/2024 4:59 AM TOLL TEST WORKER) Report Final Report: No growth Blood 06/13/2024 4:59 AM TOLL TEST WORKER 06/13/2024 6:21 AM TOLL TEST WORKER Narrative [facility] - 06/17/2024 7:00 AM TOLL TEST WORKER From a different site than #1. Collection->Peripheral [...] performance characteristics have been verified by the [facility] Microbiology Laboratory. For questions about this culture, contact the Microbiology Laboratory at [phone]. Interpretive data was last revised on 24. us Ryan Jauregui MD LAB MICROBIOLOGY - GENERAL ORDER NICHOLE Final Result Performing Organization Address City/[facility]/ZIP Co de Phone Number [facility] [place] [address] * Phosphorus (06/13/2024 4:59 AM TOLL TEST WORKER) Phosphorus, pl 3.0 2.3 - 4.5 mg/dL Blood 06/13/2024 4:59 AM TOLL TEST WORKER 06/13/2024 5:38 AM TOLL TEST WORKER Ryan Jauregui MD LAB BLOOD ORDERABLES Final Resul t Performing Organization Address [facility] de Phone Number [facility] [place] [address] * Magnesium (06/13/2024 4:59 AM TOLL TEST WORKER) Magnesium 1.9 1.4 - 2.5 mg/dL Blood 06/13/2024 4:59 AM TOLL TEST WORKER 06/13/2024 5:38 AM TOLL TEST WORKER Ryan Jauregui MD LAB BLOOD ORDERABLES Final Resul t Performing Organization Address [facility] de Phone Number [facility] [place] [address] * (ABNORMAL) Valproic acid level, total (06/13/2024 4:59 AM TOLL TEST WORKER) Valproic Acid 48.0(L) 50.0 - 100.0 mcg/mL Comment: Interpretive Data Therapeutic or toxic effects of anticonvulsant drugs may occur at different concentrations in different patients and the correlation between dose and clinical effect must be evaluated individually. Current interpretative data was last revised on 13. Blood 06/13/2024 4:59 AM TOLL TEST WORKER 06/13/2024 5:38 AM TOLL TEST WORKER Ryan Jauregui MD LAB BLOOD ORDERABLES Final Resul t Performing Organization Address [facility] Co de Phone Number [facility] Department [place] [address] * (ABNORMAL) Comprehensive metabolic panel (06/13/2024 4:59 AM TOLL TEST WORKER) Sodium 141 135 - 145 mmol/L Potassium, pl 3.9 3.3 - 4.9 mmol/L [facility] Chloride 106 97 - 110 mmol/L [facility] CO2 28 22 - 32 mmol/L [facility] Anion gap 7 2 - 15 mmol/L [facility] BUN 8 6 - 25 mg/dL [facility] Creatinine 0.54(L) 0.80 - 1.30 mg/dL [facility] Glucose 103 70 - 199 mg/dL [facility] Comment: Interpretive Data Fasting glucose >/= 126 [...] 2022. Calcium 9.5 8.5 - 10.3 mg/dL [facility] Bilirubin, total 0.5 0.1 - 1.2 mg/dL [facility] Protein, pl 7.1 6.5 - 8.5 g/dL [facility] Albumin 3.7 3.5 - 5.0 g/dL [facility] Alk phos 96 40 - 130 Units/L [facility] ALT 17 7 - 55 Units/L [facility] AST 22 10 - 50 Units/L [facility] Blood 06/13/2024 4:59 AM TOLL TEST WORKER 06/13/2024 5:38 AM TOLL TEST WORKER us Ryan Jauregui MD LAB BLOOD ORDERABLES Final Resul t [facility] [place] [address] * TSH (06/12/2024 3:51 PM TOLL TEST WORKER) Pathologist [facility] Thyroid Stimulating Hormone 2.58 0.30 - 4.20 mcIUnit/mL Blood 06/12/2024 3:51 PM TOLL TEST WORKER 06/12/2024 5:05 PM TOLL TEST WORKER us Ryan Jauregui MD LAB BLOOD ORDERABLES Final Resul t [facility] [place] [address] * (ABNORMAL) Differential, auto (06/12/2024 3:30 PM TOLL TEST WORKER) Pathologist [facility] Neutrophil abs 9.5(H) 1.5 - 6.5 K/cumm Imm gran abs 0.0 0.0 - 0.1 K/cumm [facility] Lymphocyte abs 2.3 0.8 - 3.3 K/cumm [facility] Monocyte abs 1.1(H) 0.2 - 0.8 K/cumm [facility] Eosinophil abs 0.2 0.0 - 0.5 K/cumm [facility] Basophil abs 0.0 0.0 - 0.1 K/cumm [facility] Neutrophil pct 72.4 % [facility] Comment: Interpretive Data Percent cell count reference ranges are not reported, since discordance with absolute values may lead to misinterpretation of CBC data. Current Interpretive Data was last revised on 2017. Imm gran pct 0.2 % [facility] Comment: Interpretive Data Percent cell count reference ranges are not reported, since discordance with absolute values may lead to misinterpretation of CBC data. Current Interpretive Data was last revised on 2017. Lymphocyte pct 17.4 % [facility] Comment: Interpretive Data Percent cell count reference ranges are not reported, since discordance with absolute values may lead to misinterpretation of CBC data. Current Interpretive Data was last revised on 2017. Monocyte pct 8.3 % [facility] Comment: Interpretive Data Percent cell count reference ranges are not reported, since discordance with absolute values may lead to misinterpretation of CBC data. Current Interpretive Data was last revised on 2017. Eosinophil pct 1.5 % [facility] Comment: Interpretive Data Percent cell count reference ranges are not reported, since discordance with absolute values may lead to misinterpretation of CBC data. Current Interpretive Data was last revised on 2017. Basophil pct 0.2 % [facility] Comment: Interpretive Data Percent cell count reference ranges are not reported, since discordance with absolute values may lead to misinterpretation of CBC data. Current Interpretive Data was last revised on 2017. Blood 06/12/2024 3:30 PM TOLL TEST WORKER 06/12/2024 5:10 PM TOLL TEST WORKER us Ryan Jauregui MD LAB BLOOD ORDERABLES Final Resul t [facility] [place] [address] * (ABNORMAL) CBC with auto differential (06/12/2024 3:30 PM TOLL TEST WORKER) WBC 13.3(H) 3.8 - 9.9 K/cumm Hgb 13.7 13.0 - 17.5 g/dL [facility] Hct 41.5 38.9 - 50.3 % [facility] Plt 162 150 - 400 K/cumm [facility] MPV 13.6(H) 9.1 - 12.3 fL [facility] RBC 4.27(L) 4.30 - 5.80 M/cumm [facility] MCV 97.2(H) 81.3 - 96.4 fL [facility] MCH 32.1 27.1 - 33.3 pg [facility] MCHC 33.0 32.3 - 35.7 g/dL [facility] RDW CV 13.7 11.1 - 14.9 % [facility] RDW SD 48.8(H) 35.7 - 48.1 fL [facility] NRBC abs 0.00 0.00 - 0.01 K/cumm [facility] Blood 06/12/2024 3:30 PM TOLL TEST WORKER 06/12/2024 5:10 PM TOLL TEST WORKER Ryan Jauregui MD LAB BLOOD ORDERABLES Final Resul t Performing Organization Address City/[facility] Co de Phone Number [facility] [place] [address] * Hemoglobin A1c (06/12/2024 3:30 PM TOLL TEST WORKER) Pathologist [facility] Hgb A1C 4.9 4.0 - 5.6 % Estimated Average Glucose 94 mg/dL [facility] Comment: The ADA recommends reporting an estimated Average Glucose (eAG) with all Hemoglobin A1c results using the equation derived from a study of 507 normal and diabetic adults. Minority populations were underrepresented and children were not included. (Diabetes Care 2020; 43(S1): S66-S76). The eAG is not equivalent to a fasting glucose. Blood 06/12/2024 3:30 PM TOLL TEST WORKER 06/12/2024 5:10 PM TOLL TEST WORKER Ryan Jauregui MD LAB BLOOD ORDERABLES Final Resul t Performing Organization Address [facility] de Phone Number [facility] [place] [address] * Troponin I high-sensitivity 4-hour (06/12/2024 3:27 PM TOLL TEST WORKER) Pathologist [facility] Trop I hs 10 <=35 ng/L Comment: Interpretive Data For further hscTnI resources including the diagnostic algorithm and an aid in interpretation, copy and paste this link: [email or web address].[email or web address]/show/[email or web address] Current Interpretive Data last revised 2019. Trop I hs delta 1 ng/L [facility] Trop I hs interp Insignificant [facility] Blood 06/12/2024 3:27 PM TOLL TEST WORKER 06/12/2024 5:06 PM TOLL TEST WORKER Shakila Jung MD LAB BLOOD ORDERABL ES Final Result Performing Organization Address City/[facility] Co de Phone Number [facility] [place] [address] * XR Chest 1 Vw Portable (06/12/2024 2:47 PM TOLL TEST WORKER) Anatomical Region Laterality Modality Body, Chest N/A Computed Radiogr aphy 06/12/2024 2:51 PM TOLL TEST WORKER Impressions 06/12/2024 2:51 PM TOLL TEST WORKER Comparison to 10/07/2021. Tracheostomy device in place. Small lung volumes with bibasilar atelectasis. No pneumothorax or focal consolidation. Unchanged cardiomediastinal silhouette, accounting for differences volumes. Small left pleural effusion. No right pleural effusion. Electronically signed by: Raul Whitfield M.D. Narrative 06/12/2024 2:51 PM TOLL TEST WORKER EXAMINATION: 1 view chest radiograph Procedure Note Raul Whitfield MD - 06/12/2024 EXAMINATION: 1 view chest radiograph IMPRESSION: Comparison to 10/07/2021. Tracheostomy device in place. Small lung volumes with bibasilar atelectasis. No pneumothorax or focal consolidation. Unchanged cardiomediastinal silhouette, accounting for differences volumes. Small left pleural effusion. No right pleural effusion. Electronically signed by: Raul Whitfield M.D. Shakila Jung MD IMG XR PROCEDURES Final Result * (ABNORMAL) Urinalysis reflex to microscopic and culture Urine, in and out catheter (06/12/2024 2:38PM TOLL TEST WORKER) Color, ur Straw Yellow Clarity, ur Clear Clear [facility] Specific gravity, ur >1.042(H) 1.003 - 1.030 [facility] pH, urine 8.5 [facility] Comment: Interpretive Data U rine pH [...] on 2017 Protein, ur ql Trace Negative [facility] Glucose, ur ql Negative Negative [facility] Ketones, ur Negative Negative [facility] Bilirubin, ur Negative Negative [facility] Blood, ur Negative Negative [facility] Urobilinogen, ur 2.0(A) <2.0 mg/dL [facility] Nitrite, ur Negative Negative [facility] Leukocyte esterase, ur Negative Negative [facility] UA reflex comment Reflex conditions for microscopic UA and culture not met. [facility] Urine, in and out catheter 06/12/2024 2:38 PM TOLL TEST WORKER 06/12/2024 3:47 PM TOLL TEST WORKER us Shakila Jung MD LAB MICROBIOLOGY - GENERAL ORDERABLES Final Result [facility] [place] [address] * (ABNORMAL) Differential, auto (06/12/2024 2:23 PM TOLL TEST WORKER) Neutrophil abs 9.9(H) 1.5 - 6.5 K/cumm Imm gran abs 0.1 0.0 - 0.1 K/cumm [facility] Lymphocyte abs 2.5 0.8 - 3.3 K/cumm [facility] Monocyte abs 1.0(H) 0.2 - 0.8 K/cumm [facility] Eosinophil abs 0.2 0.0 - 0.5 K/cumm [facility] Basophil abs 0.0 0.0 - 0.1 K/cumm [facility] Neutrophil pct 72.4 % [facility] Comment: Interpretive Data Percent cell count reference ranges are not reported, since discordance with absolute values may lead to misinterpretation of CBC data. Current Interpretive Data was last revised on 2017. Imm gran pct 0.4 % [facility] Comment: Interpretive Data Percent cell count reference ranges are not reported, since discordance with absolute values may lead to misinterpretation of CBC data. Current Interpretive Data was last revised on 2017. Lymphocyte pct 18.4 % [facility] Comment: Interpretive Data Percent cell count reference ranges are not reported, since discordance with absolute values may lead to misinterpretation of CBC data. Current Interpretive Data was last revised on 2017. Monocyte pct 7.2 % [facility] Comment: Interpretive Data Percent cell count reference ranges are not reported, since discordance with absolute values may lead to misinterpretation of CBC data. Current Interpretive Data was last revised on 2017. Eosinophil pct 1.5 % [facility] Comment: Interpretive Data Percent cell count reference ranges are not reported, since discordance with absolute values may lead to misinterpretation of CBC data. Current Interpretive Data was last revised on 2017. Basophil pct 0.1 % [facility] Comment: Interpretive Data Percent cell count reference ranges are not reported, since discordance with absolute values may lead to misinterpretation of CBC data. Current Interpretive Data was last revised on 2017. Blood 06/12/2024 2:23 PM TOLL TEST WORKER 06/12/2024 4:04 PM TOLL TEST WORKER us Shakila Jung MD LAB BLOOD ORDERABL ES Final Result [facility] [place] [address] * (ABNORMAL) CBC with auto differential (06/12/2024 2:23 PM TOLL TEST WORKER) WBC 13.7(H) 3.8 - 9.9 K/cumm Hgb 14.1 13.0 - 17.5 g/dL [facility] Hct 42.0 38.9 - 50.3 % [facility] Plt 171 150 - 400 K/cumm [facility] MPV 13.2(H) 9.1 - 12.3 fL [facility] RBC 4.36 4.30 - 5.80 M/cumm [facility] MCV 96.3 81.3 - 96.4 fL [facility] MCH 32.3 27.1 - 33.3 pg [facility] MCHC 33.6 32.3 - 35.7 g/dL [facility] RDW CV 13.5 11.1 - 14.9 % [facility] RDW SD 48.5(H) 35.7 - 48.1 fL [facility] NRBC abs 0.00 0.00 - 0.01 K/cumm [facility] Blood 06/12/2024 2:23 PM TOLL TEST WORKER 06/12/2024 4:04 PM TOLL TEST WORKER Shakila Jung MD LAB BLOOD ORDERABL ES Final Result Performing Organization Address [facility] de Phone Number [facility] [place] [address] * Troponin I high-sensitivity 2-hour (06/12/2024 1:56 PM TOLL TEST WORKER) Trop I hs 10 <=35 ng/L Comment: Interpretive Data For further hscTnI resources including the diagnostic algorithm and an aid in interpretation, copy and paste this link: [email or web address].[email or web address]/show/[email or web address] Current Interpretive Data last revised 2019. Trop I hs delta 1 ng/L [facility] Trop I hs interp Insignificant [facility] Blood 06/12/2024 1:56 PM TOLL TEST WORKER 06/12/2024 2:22 PM TOLL TEST WORKER Shakila Jung MD LAB BLOOD ORDERABL ES Final Result Performing Organization Address [facility] de Phone Number [facility] [place] [address] * CT Abdomen Pelvis W Contrast (06/12/2024 12:22 PM TOLL TEST WORKER) Anatomical Region Laterality Modality Body N/A Computed Tomogra phy 06/12/2024 12:4 9 PM TOLL TEST WORKER Impressions 06/12/2024 12:49 PM TOLL TEST WORKER No acute findings in the abdomen/pelvis. Specifically, no bowel obstruction. Electronically signed by: Raul Whitfield M.D. Narrative 06/12/2024 12:49 PM TOLL TEST WORKER EXAMINATION: Computed tomography of the abdomen and [...] ED PERIPHERAL LINE INSERTION (06/12/2024 11:50 AM TOLL TEST WORKER) Narrative Shakila Jung MD - 06/12/2024 11:50 AM TOLL TEST WORKER Shakila Jung MD 06/12/2024 11:50 AM Peripheral [...] of procedure: Tolerated well, no immediate complications Shakila Jung MD IN CLINIC/BEDSIDE ORDERABLES Final Result * Influenza A/B, RSV, and COVID-19 PCR Nasopharyngeal (06/12/2024 11:39 AM TOLL TEST WORKER) [facility] COVID-19 RNA Negative Negative [facility] Influenza A RNA Negative Negative [facility] Influenza B RNA Negative Negative [facility] RSV RNA Negative Negative [facility] Comment: Interpretive data: Testing performed by [facility] ([phone]). This test is performed using the [employer] Xpert Xpress CoV-2/Flu/RSV plus assay. This is a multiplex, real-time reverse transcriptase PCR assay intended for the qualitative detection of nucleic acid from SARS-CoV-2, influenza A, influenza B, and respiratory syncytial virus. This assay has been cleared by the [place] Food and Drug administration. The performance characteristics have been verified by the [facility]. Results must be considered in the clinical context, and a negative result does not rule out infection. Interpretive Data last revised 2023 Nasopharyngeal 06/12/2024 11 :39 AM TOLL TEST WORKER 06/12/2024 12:55 PM TOLL TEST WORKER Narrative [facility] - 06/12/2024 1:39 PM TOLL TEST WORKER Is the Patient experiencing symptoms consistent with COVID?->Unknown Result [facility] Shakila Jung MD LAB MICROBIOLOGY - GENERAL ORDERABLES Final Result Performing Organization Address [facility] Co de Phone Number [facility] [place] [address] [facility] * POCT creatinine (06/12/2024 11:29 AM TOLL TEST WORKER) Creatinine POC 0.7 0.7 - 1.3 mg/dL Blood 06/12/2024 11:2 9 AM TOLL TEST WORKER 06/12/2024 11:29 AM TOLL TEST WORKER Result [facility] Shakila Jung MD LAB POCT ORDERABLE S - DEVICE Final Result Performing Organization Address [facility] de Phone Number [facility] [place] [address] * Troponin I high-sensitivity series (baseline, 2hr, 4hr, 6hr) (06/12/2024 11:22 AM TOLL TEST WORKER) Trop I hs 9 <=35 ng/L Comment: Interpretive Data For further hscTnI resources including the diagnostic algorithm and an aid in interpretation, copy and paste this link: https://bjhlab.testcatalog.org/show/[email or web address] Current Interpretive Data last revised 2019. Blood 06/12/2024 11:2 2 AM TOLL TEST WORKER 06/12/2024 1:06 PM TOLL TEST WORKER Result [facility] Shakila Jung MD LAB BLOOD ORDERABL ES Final Result Performing Organization Address [facility] Co de Phone Number [facility] [place] [address] * eGFR (06/12/2024 11:22 AM TOLL TEST WORKER) eGFR >90 >=60 mL/min/1. 73 m2 Comment: [...] reviewed 2021. Blood 06/12/2024 11:2 2 AM TOLL TEST WORKER 06/12/2024 1:07 PM TOLL TEST WORKER Shakila Jung MD LAB BLOOD ORDERABL ES Final Result [facility] [place] [address] * Differential, auto (06/12/2024 11:22 AM TOLL TEST WORKER) Neutrophil abs See Comment 1.5 - 6.5 Comment:Credited, specimen c lotted. Imm gran abs See Comment 0.0 - 0.1 [facility] Comment:Credited, specimen c lotted. Lymphocyte abs See Comment 0.8 - 3.3 [facility] Comment:Credited, specimen c lotted. Monocyte abs See Comment 0.2 - 0.8 [facility] Comment:Credited, specimen c lotted. Eosinophil abs See Comment 0.0 - 0.5 [facility] Comment:Credited, specimen c lotted. Basophil abs See Comment 0.0 - 0.1 [facility] Comment:Credited, specimen c lotted. Neutrophil pct See Comment [facility] Comment: Credited, specimen clotted. Interpretive Data Percent cell count reference ranges are not reported, since discordance with absolute values may lead to misinterpretation of CBC data. Current Interpretive Data was last revised on 2017. Imm gran pct See Comment [facility] Comment: Credited, specimen clotted. Interpretive Data Percent cell count reference ranges are not reported, since discordance with absolute values may lead to misinterpretation of CBC data. Current Interpretive Data was last revised on 2017. Lymphocyte pct See Comment [facility] Comment: Credited, specimen clotted. Interpretive Data Percent cell count reference ranges are not reported, since discordance with absolute values may lead to misinterpretation of CBC data. Current Interpretive Data was last revised on 2017. Monocyte pct See Comment [facility] Comment: Credited, specimen clotted. Interpretive Data Percent cell count reference ranges are not reported, since discordance with absolute values may lead to misinterpretation of CBC data. Current Interpretive Data was last revised on 2017. Eosinophil pct See Comment [facility] Comment: Credited, specimen clotted. Interpretive Data Percent cell count reference ranges are not reported, since discordance with absolute values may lead to misinterpretation of CBC data. Current Interpretive Data was last revised on 2017. Basophil pct See Comment [facility] Comment: Credited, specimen clotted. Interpretive Data Percent cell count reference ranges are not reported, since discordance with absolute values may lead to misinterpretation of CBC data. Current Interpretive Data was last revised on 2017. Blood 06/12/2024 11:2 2 AM TOLL TEST WORKER 06/12/2024 1:07 PM TOLL TEST WORKER us Shakila Jung MD LAB BLOOD ORDERABL ES Edited Result - Final [facility] [place] [address] * CBC with auto differential (06/12/2024 11:22 AM TOLL TEST WORKER) WBC See Comment 3.8 - 9.9 Comment:Credited, specimen c lotted. Hgb See Comment 13.0 - 17.5 [facility] Comment:Credited, specimen c lotted. Hct See Comment 38.9 - 50.3 [facility] Comment:Credited, specimen c lotted. Plt See Comment 150 - 400 [facility] Comment: Credited, specimen clotted. spoke to ALFRED Velásquez 06/12/2024 14:17:24 TOLL TEST WORKER fv MPV See Comment 9.1 - 12.3 [facility] Comment:Credited, specimen c lotted. RBC See Comment 4.30 - 5.80 [facility] Comment:Credited, specimen c lotted. MCV See Comment 81.3 - 96.4 [facility] Comment:Credited, specimen c lotted. MCH See Comment 27.1 - 33.3 [facility] Comment:Credited, specimen c lotted. MCHC See Comment 32.3 - 35.7 [facility] Comment:Credited, specimen c lotted. RDW CV See Comment 11.1 - 14.9 [facility] Comment:Credited, specimen c lotted. RDW SD See Comment 35.7 - 48.1 [facility] Comment:Credited, specimen c lotted. NRBC abs See Comment 0.00 - 0.01 K/cumm [facility] Comment:Credited, specimen c lotted. Blood 06/12/2024 11:2 2 AM TOLL TEST WORKER 06/12/2024 1:07 PM TOLL TEST WORKER Shakila Jung MD LAB BLOOD ORDERABL ES Final Result [facility] Department [place] [address] * Lipase (06/12/2024 11:22 AM TOLL TEST WORKER) Lipase 24 10 - 99 Units/L Blood 06/12/2024 11:2 2 AM TOLL TEST WORKER 06/12/2024 1:07 PM TOLL TEST WORKER Shakila Jung MD LAB BLOOD ORDERABL ES Final Result Performing Organization Address [facility] Co de Phone Number [facility] [place] [address] * (ABNORMAL) Valproic acid level, total (06/12/2024 11:22 AM TOLL TEST WORKER) Pathologist [facility] Valproic Acid 48.0(L) 50.0 - 100.0 mcg/mL Comment: Interpretive Data Therapeutic or toxic effects of anticonvulsant drugs may occur at different concentrations in different patients and the correlation between dose and clinical effect must be evaluated individually. Current interpretative data was last revised on 13. Blood 06/12/2024 11:2 2 AM TOLL TEST WORKER 06/12/2024 1:07 PM TOLL TEST WORKER Shakila Jung MD LAB BLOOD ORDERABL ES Final Result Performing Organization Address [facility] de Phone Number [facility] Department [place] [address] * (ABNORMAL) Comprehensive metabolic panel (06/12/2024 11:22 AM TOLL TEST WORKER) Pathologist [facility] Sodium 142 135 - 145 mmol/L Potassium, pl 4.6 3.3 - 4.9 mmol/L [facility] Comment:Hemolyzed; Potassium value may be falsely elevated by as much as 0.6-1.0 mmol/L. Suggest redraw and reanalysis. Chloride 101 97 - 110 mmol/L [facility] CO2 29 22 - 32 mmol/L [facility] Anion gap 12 2 - 15 mmol/L [facility] BUN 11 6 - 25 mg/dL [facility] Creatinine 0.60(L) 0.80 - 1.30 mg/dL [facility] Glucose 89 70 - 199 mg/dL [facility] Comment: Interpretive Data Fasting glucose >/= 126 [...] 2022. Calcium 10.3 8.5 - 10.3 mg/dL [facility] Bilirubin, total 0.3 0.1 - 1.2 mg/dL [facility] Protein, pl 8.5 6.5 - 8.5 g/dL [facility] Albumin 4.3 3.5 - 5.0 g/dL [facility] Alk phos 114 40 - 130 Units/L [facility] ALT 22 7 - 55 Units/L [facility] AST 45 10 - 50 Units/L [facility] Comment:Hemolyzed; result ma y be falsely elevated Blood 06/12/2024 11:2 2 AM TOLL TEST WORKER 06/12/2024 1:07 PM TOLL TEST WORKER Shakila Jung MD LAB BLOOD ORDERABL ES Final Result [facility] Department [place] [address] * ECG 12-LEAD (06/12/2024 11:01 AM TOLL TEST WORKER) Narrative [facility] - 06/12/2024 11:01 AM TOLL TEST WORKER Shakila Jung MD 06/12/2024 11:02 AM ECG [...] from prior Shakila Jung MD 06/12/24 1102 us Shakila Jung MD ECG ORDERABLES Fi nal Result [facility] * TNI with LIPID PANEL (08/24/2017 4:57 PM CDT) Troponin I < 0.300 0.000 - 0.300 ng/mL 08/24/2017 5:29 PM T [facility] [email or web address] HISTORICAL RESULTS Comment: Reference using ZAC Chemiluminescence Negative: Repeat in 4-6 hours as indicated. Triglycerides 34 0 - 199 mg/dL 08/24/2017 5:30 PM T [facility] [employer] HISTORICAL RESULTS Comment:12 hr pc highly avani mmended for Triglyceride Cholesterol 129 0 - 199 mg/dL 08/24/2017 5:30 PM [facility] [employer] HISTORICAL RESULTS Comment: Borderline: 200-239 High Risk: >239 HDL Cholesterol 71 mg/dL 8 5:30 PM T [facility] [email or web address] HISTORICAL RESULTS Comment: Reference Ranges: Males: >=40 mg/dL Females: >=50 mg/dL LDL Cholesterol, Calc 51 0 - 130 mg/dL 08/24/2017 5:30 PM T [facility] [employer] HISTORICAL RESULTS Comment:High Risk > 159 mg/d L Cholesterol/HDL Ratio 1.8 08/24/2017 5:30 PM T [facility] [employer] HISTORICAL RESULTS Comment: Cholesterol / HDL Ratio 3.5:1 or less is desirable. Cholesterol / HDL Ratio greater than 5:1 is considered higher risk for developing heart disease. 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 Source: [facility] [employer] 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 Source: [facility] [employer] 09/18/22 Acinetobacter osh 09/18/2022 MRSA 06/19/2024 06/20/[address] [facility] Advance Directives For more information, please contact: [phone] Documents on File Type Date Recorded Patient Procedures Analyst Expl anation ADVANCE DIRECTIVE 10/08/2012 12:00 AM SANDRA R OF ACCOUNTING RECONCILIATION CLERK FINANCIAL/MEDICAL * Full Code (Latest Code Status on File) Date Activated Date Inactivated Comments 06/12/2024 3:22 PM 06/28/2024 9:30 PM * Full Code Date Activated Date Inactivated Comments 12/10/2020 9:05 AM 12/13/2020 10:44 PM Care Teams Petrol Tanker Driver Relationship Specialty Start Date End Date Marielena Smallwood MD [address] [facility] [place] [place] [address] PCP - General Family Practice 07/08/24
--- OUTSIDE RECORDS SUMMARY | 2024-07-13 23:00 | XMS_ITS | Clinical Summary ---
Author Organization [facility] Address [address] [place] [address] Care Team Providers Care Production Clerks Supervisor Name Role Phone Frank Toure MD Unavailable Marielena Smallwood MD Primary Care Provider [phone] Allergies Active Allergy Reactions Criticality Noted Date Comments Clonazepam Hallucinations Medium 12/09/2021 hallucinations Medications vitamin B-1 100 MG TabIndications:Seiz ure ([facility]) Take 1 tablet (100 mg total) by [...] x 7.5 MG/0.1ML Liquid Therapy PackIndications:Tara llanes ([facility]) 2 sprays by Nasal route as needed. 1 spray each nostril during a seizure 1 each 2 Active amLODIPine 5 MG tabletIndications:P rimary hypertension Take 1 tablet (5 mg total) by mouth daily. 90 tablet 1 2 Active divalproex EC 500 MG tabletIndications:S eizure (CMS/HCC HHS/HCC) Take 1 tablet (500 mg [...] No evidence of infection Urine cultures from [facility] last month were negative growth as well [...] infection. Antibiotics not indicated Osteoporosis 11/22/2018 Seizure ([facility]) 08/25/2017 Cerebrovascular accident (CV A) due to thrombosis of right posterior cerebral artery ([facility]) 02/20/2016 Assessment & Plan (11/29/2018 9:36 PM CDT): Patient has residual cognitive difficulties I think beyond with patient and her family have recognized in the past however as noted in adequate medication intake her side effects may be causing deterioration. Hypertension 07/24/2015 Hyperlipidemia 04/14/2015 Assessment & Plan (11/29/2018 9:36 PM CDT): Continue home meds and monitor Seizure ([facility]) 04/11/2015 Assessment & Plan (11/29/2018 9:39 PM CDT): History of generalized seizure disorder and being managed by a neurologist in [facility] however there is confusion from family about dosages of his medications because he is got multiple pill bottles at home. Verification of levetiracetam dose per neurologist noted Encounters Date Type Department Care Team Description 07/08/2024 Scan [facility] Scanned, [facility] 06/28/2024 Scan [facility] Scanned, [facility] 06/12/2024 Scan [facility] Scanned, [facility] from Last 3 Months Immunizations Name Administration Dates Next Due Influenza [...] Comments Blood Pressure 128/72 06/17/2022 10:46 AM DISPLAY CARVER Pulse 95 06/17/2022 10:46 AM DISPLAY CARVER Temperature 36.4 C (97.6 F) 06/07/2022 12:31 PM DISPLAY CARVER Respiratory Rate 18 06/17/2022 10:4 6 AM DISPLAY CARVER Oxygen Saturation 98% 06/17/2022 10: 46 AM DISPLAY CARVER Inhaled Oxygen Concentration - - Weight 59 kg (130 lb) 06/17/2022 10:46 AM DISPLAY CARVER stated - unable to weigh Height 180.3 cm (5' 11 ) 06/17/2022 10: 46 AM DISPLAY CARVER Body Mass Index 18.13 06/17/2022 10:46 AM DISPLAY CARVER Plan of Treatment Health Maintenance Due Date Last Done Comments Annual Physical 01/27/1963 Zoster Vaccines (1 of 2) 2011 RSV Immunization or 60+ Years (1 - Risk 60-74 years 1-dose series) 2021 COVID-19 Vaccine ( - season) 2024 04/06/2021, 07/02/2020, 06/11/2020 Influenza Adult (#1) 2024 02/01/2022, 03/16/2021, 03/07/2020, Additional history exists PHQ-2 (Physician Jackson) 05/30/2024 Colorectal Cancer Screening Colonoscopy (10 Years) 11/22/2026 11/22/2016 DTaP, Tdap and Td Vaccines (3 - Td or Tdap) 06/06/2027 06/06/2017, 03/23/2017 Pneumococcal Vaccine: Pediatrics (0 to 5 Years) and At-Risk Patients (6 to 64 Years) Aged Out 02/04/2016, 08/13/2015, 02/07/2015 No longer eligible based on patient's age to complete this topic Hepatitis C Completed 06/26/2024, 05/31, 06/23/2016 Meningococcal B Vaccine Aged Out No l onger eligible based on patient's age to complete this topic Meningococcal Vaccine Aged Out No eleonora luc eligible based on patient's age to complete this topic RSV Immunizations Under 20 Months Aged Out No longer eligible based on patient's age to complete this topic Procedures Procedure Name Priority Date/Time Associated Diagnosis Comments COLONOSCOPY Routine 11/22/2016 12:00 AM CDT HEPATITIS C ANTIBODY Routine 06/23/2016 11:13 AM DISPLAY CARVER from Last 3 Months or Most Recently Relevant to Health Maintenance Results * Colonoscopy (11/22/2016 12:00 AM CDT) 11/22/2016 11/22/2016 Narrative [facility] CONVERSION - 11/22/2016 12:00 AM CDT Documented hx of procedure Procedure Note Jerica Tsai MD - 04/02/2018 Documented hx of procedure us Generic Neris Tsai MD GI PROCEDURE ORDERABLES Final Result Performing Organization Address City[facility] Co de Phone Number [facility] TO EPIC CONVERSION * HEPATITIS C ANTIBODY (06/23/2016 11:13 AM DISPLAY CARVER) HEPATITIS C AB NON-REACTIVE TEST[place] [address] NR [facility] EP[facility] CONVERSION 06/23/2016 11:1 3 AM DISPLAY CARVER 06/23/2016 11:13 AM DISPLAY CARVER Narrative [facility] EPIC CONVERSION - 06/24/2016 6:41 PM DISPLAY CARVER Result Communication: No patient communication needed at this time us Misael Maradigaa DO LABORATORY Final Result [facility] CONVERSION from Last 3 Months or Most Recently Relevant to Health Maintenance Insurance Advance Directives Documents on File Type Date Recorded 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 Expl 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 Advance Directives and Living Will 10/17/2017 SADVANCE DIRECTIVES * Full Code (Latest Code Status on File) Date Activated Date Inactivated Comments 12/04/2018 1:44 PM 12/12/2018 3:19 PM * Full Code Date Activated Date Inactivated Comments 11/29/2018 6:21 PM 12/04/2018 1:38 PM Care Teams Production Clerks Supervisor Relationship Specialty Start Date End Date Marielena Smallwood MD [address] [place] [id number] PCP - General FAMILY PRACTICE 10/27/23 Frank Toure MD [address] [place] [id number] [place] Hand Printed Circuit Board Assembler CARDIOVASCULAR DISEASE 05/30/16
--- OUTSIDE RECORDS SUMMARY | 2024-07-13 23:00 | XMS_ITS | Patient Health Summary ---
Author Organization [facility] Address [address] [place] [address] Care Team Providers Care As[employer] [place] [place] Name Role Phone Elizabeth Sullivan RN Unavailable [phone] Dany Monsivais MD Primary Care Provider [phone] Note from [facility] [place],non-owned Affiliates and Associated Physician Practices is amultiple site organization consisting of ambulatory clinics and hospital sitesin [place], [place], [place] and [place]. This disclosure is being madepursuant to the Care Everywhere program and may not contain all information available regarding this patient. Last updated 18.[facility] Allergies * Clonazepam(Psychiatric) -Medium Criticality Medications * [...] Grams (4000 mg) / 24 hours. * Calcium Carbonate Antacid (calcium carbonate, 500 mg elemental Ca/5 mL,) 1250 MG/5ML suspension(Started 02/28/2023) 5 mL by Enteral Tube route every 6 hours as needed * atorvastatin (Lipitor) 40 MG tablet(Started 02/28/2023) 1 (one) tablet by Enteral Tube route at bedtime * guaiFENesin (Robitussin) 100 MG/5ML solution(Started 02/28/2023) 15 mL by Enteral Tube route Every 6 Hours (03,09,15,) * polyethylene glycol 3350 (Miralax) 17 g packet(Started 02/28/2023) 17 (seventeen) g by Enteral Tube route 2 times daily * senna (Senokot) 8.6 MG tablet(Started 03/01/2023) 1 (one) tablet by Enteral Tube route once daily * bisacodyl (Dulcolax) 10 MG suppository Insert 1 (one) suppository into the rectum once daily as needed for Constipation * albuterol-ipratropium (Duo-Neb) 0.5-2.5 (3) MG/3ML nebulizer solution Inhale 3 mL by mouth every 6 hours as needed for Shortness of Breath or Wheezing * apixaban (Eliquis) 5 MG tablet(Started 09/10/2023) Take 1 (one) tablet by mouth 2 times daily Per G-tube * levETIRAcetam (Keppra) 100 MG/ML oral solution(Started [...] 90 days 2 refills by 11/11/2024 * finasteride (Proscar) 5 MG tablet(Started 05/16/2024) 1 (one) tablet by Per G Tube route once daily * glycopyrrolate (Robinul) 1 MG tablet(Started 05/08/2024) 1 (one) tablet by Per G Tube route 2 times daily * lacosamide (Vimpat) 10 MG/ML oral solution 20 mL by Per G Tube route 2 times daily * Sodium Phosphates (FLEET ENEMA RE) * magnesium hydroxide (Milk of Magnesia) 400 MG/5ML suspension Take 30 mL by mouth as needed for Constipation * ondansetron (Zofran) 4 MG tablet 1 (one) tablet by Enteral Tube route every 6 hours as needed for Nausea/Vomiting * pantoprazole (Protonix) 40 MG packet(Started 06/09/2024) Take 1 (one) packet by mouth 2 times daily for 60 days * valproic acid (Depakene) 250 MG/5ML solution(Started 06/09/2024) 25 mL by Per G Tube route every 6 hours * valproic acid (Depakene) 250 MG/5ML solution Take 10 mL by mouth every 6 hours Active Problems Problem Noted Date Diagnosed Date [...] and collapse 06/26/2015 023 Immunizations * Covid [employer] primary monovalent 12+ yr 0.3mL Purple cap(Given [...] and heating? Not hard at all 06/19/2023 [facility] - Occupational [...] Comments Blood Pressure 141/91 06/09/2024 8:18 PM [employer] Pulse 83 06/09/2024 8:18 PM [employer] Temperature 36.9 C (98.4 F) 06/09/2024 8:18 PM [employer] Respiratory Rate 17 06/09/2024 8:18 PM [employer] Oxygen Saturation 94% 06/09/2024 12:25 PM [employer] Inhaled Oxygen Concentration 21% 06/09/2024 1 2:25 PM [employer] Weight 77.1 kg (170 lb) 06/08/2024 10:27 PM [employer] Height 175.3 cm (5' 9 ) 06/08/2024 10:27 PM [employer] Body Mass Index 25.1 06/08/2024 10:27 PM [employer] Procedures * CBC W/O DIFFERENTIAL(Performed 06/09/2024) * GLUCOSE - POINT OF CARE(Performed 06/08/2024) * GLUCOSE - POINT OF CARE(Performed 06/08/2024) * PHOSPHORUS BLOOD(Performed 06/08/2024) * MAGNESIUM BLOOD(Performed [...] * CBC W AUTO DIFFERENTIAL(Performed 09/06/2023) * [place] SCOPE THRU TRACHEOSTOMY(Performed 08/29/2023) Performed for Oropharyngeal [...] PORTABLE(Performed 12/31/2022) Performed for Tracheostomy in place ([facility]) * CARDIAC EKG ORDER(Performed 12/17/2022) * GLUCOSE [...] PEG (percutaneous endoscopic gastrostomy) status (HCC) * MAGNESIUM BLOOD(Performed 12/07/2022) * RENAL FUNCTION [...] VALPROIC ACID LEVEL(Performed 05/13/2022) Performed for Seizures (HCC) * PHOSPHORUS BLOOD(Performed 05/13/2022) * MAGNESIUM BLOOD(Performed 05/13/2022) * COMPREHENSIVE METABOLIC PANEL(Performed 05/13/2022) * CBC W AUTO DIFFERENTIAL(Performed 05/13/2022) * GLUCOSE - POINT OF CARE(Performed 05/13/2022) * GLUCOSE - POINT OF CARE(Performed 05/13/2022) * GLUCOSE - POINT OF CARE(Performed 05/12/2022) * FL SWALLOWING FUNCTION STUDY(Performed 05/12/2022) Performed for Seizures (HCC) * GLUCOSE - POINT OF CARE(Performed 05/12/2022) * CARDIAC EKG ORDER(Performed 05/12/2022) * GLUCOSE - POINT OF CARE(Performed 05/12/2022) * GLUCOSE - POINT OF CARE(Performed 05/12/2022) * HEMOGLOBIN A1C(Performed 05/12/2022) Performed for Seizures (HCC) * PHOSPHORUS BLOOD(Performed 05/12/2022) * MAGNESIUM BLOOD(Performed 05/12/2022) * COMPREHENSIVE METABOLIC PANEL(Performed 05/12/2022) * CBC W AUTO DIFFERENTIAL(Performed 05/12/2022) * TROPONIN I(Performed 05/11/2022) * MAGNESIUM BLOOD(Performed 05/11/2022) * URINALYSIS REFLEX TO MICROSCOPIC NO CULTURE(Performed 05/11/2022) * TROPONIN I(Performed 05/11/2022) * SARS-COV-2 (COVID-19)+INFLU A+B PCR RAPID(Performed 05/11/2022) * CT HEAD WO CONTRAST(Performed 05/11/2022) Performed for Seizures (HCC) * PT-INR [facility](Performed 05/11/2022) * COMPREHENSIVE METABOLIC PANEL(Performed 05/11/2022) * CBC W AUTO DIFFERENTIAL(Performed 05/11/2022) * BLOOD GASES ANA + COOX PANEL(Performed 05/11/2022) * XR CHEST 1VW PORTABLE(Performed 05/11/2022) Performed for Seizures (HCC) * EKG 12-LEAD(Performed 05/11/2022) Performed for Seizures (HCC) * GLUCOSE - POINT OF CARE(Performed 04/01/2022) [...] 03/26/2022) * CBC W/O DIFFERENTIAL(Performed 03/26/2022) * [place] ED EGD FLEX TRANSORAL DX(Performed 03/25/2022) Performed [...] dysfunction, due to unspecified organism (HCC) * BASIC METABOLIC PANEL (CALCIUM TOTAL)(Performed 03/22/2022) [...] dysfunction, due to unspecified organism (HCC) * XR CHEST 1VW PORTABLE(Performed 03/17/2022) Performed for Sepsis without acute organ dysfunction, due to unspecified organism (HCC) * GLUCOSE - POINT OF CARE(Performed 03/17/2022) [...] PATHOLOGY TISSUE(Performed 03/15/2022) 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 BELOW-KNEE(Performed 03/15/2022) 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[facility]) * ENDOTRACHEAL TUBE NOTE(Performed 03/15/2022) * VANCOMYCIN LEVEL TROUGH(Performed 03/15/2022) * MRI FOOT LEFT WWO CONTRAST(Performed 03/15/2022) Performed for Bacteremia, PAD (peripheral artery disease) ([facility]) * MAGNESIUM BLOOD(Performed 03/14/2022) * [...] COMPREHENSIVE METABOLIC PANEL(Performed 12/21/2021) Performed for Seizures ([facility]) * CBC W AUTO DIFFERENTIAL(Performed 12/21/2021) Performed for Seizures ([facility]) * LACOSAMIDE(Performed 09/01/2021) Performed for Partial idiopathic [...] CBC W/O DIFFERENTIAL(Performed 08/14/2020) Performed for Seizure (HCC) * GLUCOSE - POINT OF CARE(Performed 08/13/2020) * SARS-COV-2 (COVID-19)+INFLU A+B PCR RAPID(Performed 08/13/2020) Performed for Seizures (HCC) * URINALYSIS W/MICROSCOPIC NO CULTURE(Performed 08/13/2020) * LACOSAMIDE(Performed 08/13/2020) * LEVETIRACETAM LEVEL(Performed 08/13/2020) * COMPREHENSIVE METABOLIC PANEL(Performed 08/13/2020) * CT HEAD WO CONTRAST(Performed 08/13/2020) Performed for Seizures (HCC) * CBC W AUTO DIFFERENTIAL(Performed 08/13/2020) * VALPROIC ACID LEVEL(Performed 08/13/2020) * XR CHEST 1VW PORTABLE(Performed 08/13/2020) Performed for Seizures (HCC) * VAS LEFT ARTERIAL DUPLEX LE(Performed 12/26/2019) Performed for PAD (peripheral artery disease) (HCC) * VAS ARTERIAL ANKLE ARM INDEX(Performed 12/26/2019) Performed for PAD (peripheral artery disease) (HCC) * CARDIAC EKG ORDER(Performed 12/16/2019) * IR ANGIOGRAM LEFT LEG(Performed 07/18/2019) Performed for PVD (peripheral vascular disease) (HCC) * CBC W/O DIFFERENTIAL(Performed 07/18/2019) Performed for PVD (peripheral vascular disease) (HCC), Therapeutic procedure * BASIC METABOLIC PANEL (CALCIUM TOTAL)(Performed 07/18/2019) Performed for PVD (peripheral vascular disease) (HCC), Therapeutic procedure * PT-INR [facility](Performed 07/18/2019) Performed for PVD (peripheral vascular disease) (HCC) * CARDIAC EKG ORDER(Performed 07/09/2019) * VAS ARTERIAL ANKLE ARM INDEX(Performed 07/02/2019) 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) * CT ANGIO ABDOMEN AORTA W RUNOFF(Performed 07/02/2019) 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) * CARDIAC EKG ORDER(Performed 06/28/2019) * CARDIAC EKG ORDER(Performed 06/27/2019) * CARDIAC EKG ORDER(Performed 06/20/2019) * LACOSAMIDE(Performed 06/18/2019) Performed for Intractable epilepsy with status epilepticus, unspecified epilepsy type (HCC) * LEVETIRACETAM LEVEL(Performed 06/18/2019) Performed for Intractable [...] CBC W AUTO DIFFERENTIAL(Performed 04/11/2015) * PT-INR [facility](Performed 04/11/2015) * BLOOD GASES ARTERIAL(Performed 04/11/2015) * HEMOGLOBIN A1C(Performed 04/11/2015) * LIPID PROFILE(Performed 04/11/2015) * CBC W AUTO DIFFERENTIAL(Performed 04/11/2015) * ECHO COMPLETE(Performed 04/11/2015) * EKG 12-LEAD(Performed 04/11/2015) Results * (ABNORMAL) CBC W/O DIFFERENTIAL (06/09/2024 1:20 AM [employer]) Only the most recent of42 resultswithin the time period is included. WBC 8.1 4.0 - 10.7 x10E9/L 06/09/2024 1:59 AM [employer] [facility] RBC Count 4.64 4.30 - 5.80 x10E12/L 06/09/2024 1:59 AM [employer] [facility] Hemoglobin 15.0 13.3 - 17.5 g/dL 06/09/2024 1:59 AM [facility] Hematocrit 45.6 38.7 - 51.1 % 06/09/2024 1:59 AM [facility] MCV 98.3(H) 80.0 - 98.0 fL 06/09/2024 1:59 AM [facility] MCH 32.3 26.7 - 33.6 pg 06/09/2024 1:59 AM [facility] MCHC 32.9 31.7 - 36.3 g/dL 06/09/2024 1:59 AM [facility] RDW-CV 13.3 11.3 - 14.8 % 06/09/2024 1:59 AM [facility] Platelet Count 105(L) 150 - 420 x10E9/L 06/09/2024 1:59 AM [facility] Comment:Platelets clumped on slide but appears decreased. Recommend repeat with a sodium citrate blue top tube. MPV 06/09/2024 1:59 AM [facility] Comment:Unable to report Blood BLOOD SPECIMEN / Unknown Lab Venipuncture / Unknown 06/09/2024 1:20 AM [employer] 06/09/2024 1:23 AM [employer] Lilliam HUITRON LAB - HEMATOLOGY ORDERABLES [facility] [address] [place] [phone], [facility] [phone] * GLUCOSE - POINT OF CARE (06/08/2024 6:22 PM [employer]) Only the most recent of448 resultswithin the time period is included. Glucose WB/POC 89 70 - 99 mg/dL 06/08/2024 6:23 PM [facility] Specimen Type Cap Fingerstick 2024 6:23 PM [facility] Blood BLOOD SPECIMEN / Unknown 06/08/2024 6:22 PM [employer] 06/08/2024 6:23 PM [employer] Myles Medrano MD LAB - POINT OF CARE ORDERABLES [facility] [address] [place] [address], [facility] [phone] * PT-INR [facility] (06/08/2024 4:11 AM [employer]) Only the most recent of17 resultswithin the time period is included. PT 14.1 12.1 - 14.8 Seconds 06/08/2024 4:46 AM [facility] INR 1.1 See Comment 06/08/2024 4:46 AM [facility] Comment:The suggested therap eutic range for standard coumadin (warfarin) therapy is an INR of 2.0-3.0. For high-risk patients (Mechanical Mitral Valve Prosthesis, etc.), the suggested prophylactic therapeutic range is an INR of 2.5-3.5. Blood BLOOD SPECIMEN / Unknown Venipuncture / Unknown 06/08/2024 4:11 AM [employer] 06/08/2024 4:18 AM [facility] Elizabeth Hernandez MD LAB - COAGULATION OR DERABLES Performing Organization Address [facility] de Phone Number [facility] [address] [place] [phone], [facility] [phone] * (ABNORMAL) BASIC METABOLIC PANEL (CALCIUM TOTAL) (06/08/2024 4:11 AM [employer]) Only the most recent of146 resultswithin the [...] 22 - 29 mmol/L 06/08/2024 4:58 AM [employer] [facility] Glucose 105(H) 70 - 99 mg/dL [...] Unknown Venipuncture / Unknown 06/08/2024 4:11 AM [employer] 06/08/2024 4:18 AM [employer] LAB - CHEMISTRY ORDERABLES [address] [address], [facility] [phone] * PHOSPHORUS BLOOD (06/08/2024 4:11 AM [employer]) Only the most recent of154 resultswithin the time period is included. Phosphorus 3.0 2.8 - 5.1 mg/dL 06/08/2024 4:49 AM [facility] Blood BLOOD SPECIMEN / Unknown Venipuncture / Unknown 06/08/2024 4:11 AM [employer] 06/08/2024 4:18 AM [employer] LAB - CHEMISTRY ORDERABLES [address] [address], [facility] [phone] * MAGNESIUM BLOOD (06/08/2024 4:11 AM [employer]) Only the most recent of193 resultswithin the time period is included. Magnesium 1.9 1.6 - 2.6 mg/dL 06/08/2024 4:58 AM [facility] Blood BLOOD SPECIMEN / Unknown Venipuncture / Unknown 06/08/2024 4:11 AM [employer] 06/08/2024 4:18 AM [employer] Conradkatarina Isaacs [facility] LAB - CHEMISTRY ORDERABLES Performing Organization Address City/[facility]/ZIP Co de Phone Number [facility] [address] [place] [address], [facility] [phone] * (ABNORMAL) LIPID PROFILE (06/08/2024 4:11 AM [employer]) Only the most recent of2 resultswithin the [...] Unknown Venipuncture / Unknown 06/08/2024 4:11 AM [employer] 06/08/2024 4:18 AM [employer] [facility] LAB - CHEMISTRY ORDERABLES [facility] [address] [place] [address], [place] [phone] * (ABNORMAL) URINALYSIS REFLEX MICROSCOPIC REFLEX CULTURE (06/07/2024 10:24 PM [employer]) Only the most recent of7 resultswithin the time period is included. Color UA Yellow Straw, Yellow 06/07/2024 11:05 PM [facility] Clarity UA Clear Clear 06/07/2024 11:05 PM [facility] Specific [place] UA >1.060(H) 1.005 - 1.030 06/07/2024 11:05 [...] Unknown Collection / Unknown 06/07/2024 10:24 PM [employer] 06/07/2024 10:27 PM [facility] - 06/07/2024 11:05 PM [employer] Elizabeth Hernandez MD LAB - URINALYSIS ORD ERABLES [facility] [address] [place] [phone], [facility] [phone] * (ABNORMAL) CBC W AUTO DIFFERENTIAL (06/07/2024 8:01 PM [employer]) Only the most recent of219 resultswithin the [...] Unknown Venipuncture / Unknown 06/07/2024 8:01 PM [employer] 06/07/2024 8:07 PM [facility] Elizabeth Hernandez MD LAB - HEMATOLOGY ORD ERABLES [facility] [address] [place] [address], [facility] [phone] * (ABNORMAL) COMPREHENSIVE METABOLIC PANEL (06/07/2024 8:01 PM [facility]) Only the most recent of84 resultswithin the [...] Unknown Venipuncture / Unknown 06/07/2024 8:01 PM [employer] 06/07/2024 8:07 PM [facility] Elizabeth Hernandez MD LAB - CHEMISTRY MARSHAL MEDEROS [facility] Organization Address City/State/[facility] Co de Phone Number [address] [phone] [phone] * LIPASE BLOOD (06/07/2024 8:01 PM [facility]) Only the most recent of4 resultswithin the time period is included. Lipase 14 8 - 78 U/L 06/07/2024 8:36 PM [facility] Blood BLOOD SPECIMEN / Unknown Venipuncture / Unknown 06/07/2024 8:01 PM [employer] 06/07/2024 8:07 PM [facility] - 06/07/2024 8:36 PM [employer] Lipase results from the [employer] Alinity analyzer may not be comparable with other methodologies. Elizabeth Hernandez MD LAB - CHEMISTRY MARSHAL Diana Organization Address City/State/ZIP Co de Phone Number [facility] [address] [place] [address], [facility] [phone] * CT Chest Abdomen Pelvis W Cont (05/15/2024 2:44 PM [employer]) Only the most recent of4 resultswithin the time period is included. Anatomical Region Laterality Modality Chest, Abdomen, Pelvis Computed Tomography 05/15/2024 3:06 PM [employer] Impressions 05/15/2024 4:01 PM [employer] Impression 1. Debris noted in the right mainstem bronchus and the bilateral lower lobe peribronchial wall thickening suggestive of aspiration. 2. Centrilobular emphysematous disease of the lungs. 3. Bilateral nonobstructive nephrolithiasis. 4. Colonic diverticulosis without evidence of diverticulitis. 5. Prostatomegaly. Recommend correlation with PSA. Report dictated by Flavio Stover MD(residential driver). I, John Graham MD have personally reviewed and interpreted this examination/study. > Interpreting Provider: John Graham MD on 05/15/2024 4:01 PM Narrative 05/15/2024 4:01 PM [employer] PROCEDURE: CT CHEST ABDOMEN PELVIS W CONT, DATE/TIME OF EXAM: 05/15/2024 2:44 PM, LOCATION [facility] INDICATION: R10.84: Abdominal pain, generalized ADDITIONAL CLINICAL [...] CONT, DATE/TIME OF EXAM:05/15/2024 2:44 PM, LOCATION [facility] INDICATION: R10.84: Abdominal pain, generalized ADDITIONAL CLINICAL [...] PSA. Report dictated by Flavio Stover MD(residential driver). I, John Graham MD have personally reviewed and interpreted this examination/study. > Interpreting Provider: John Graham MD on 05/15/2024 4:01 PM Caio Elder MD CT ORDERABLES * CT CERVICAL SPINE WO CONTRAST (04/30/2024 11:05 PM [employer]) Only the most recent of6 resultswithin the time period is included. Anatomical Region Laterality Modality Spine Computed Tomogra phy 04/30/2024 11:1 6 PM [employer] Impressions 04/30/2024 11:34 PM [employer] IMPRESSION: 1. No acute intracranial hemorrhage or [...] 04/30/2024 11:34 PM Narrative 04/30/2024 11:34 PM [employer] PROCEDURE: CT HEAD WO CONTRAST, CT CERVICAL [...] CT HEAD WO CONTRAST (04/30/2024 11:05 PM [employer]) Only the most recent of22 resultswithin the time period is included. Anatomical Region Laterality Modality Head Computed Tomogra phy 04/30/2024 11:1 6 PM [employer] Impressions 04/30/2024 11:34 PM [employer] IMPRESSION: 1. No acute intracranial hemorrhage or [...] 04/30/2024 11:34 PM Narrative 04/30/2024 11:34 PM [employer] PROCEDURE: CT HEAD WO CONTRAST, CT CERVICAL [...] XR Chest 1Vw Portable (04/30/2024 10:13 PM [employer]) Only the most recent of44 resultswithin the time period is included. Anatomical Region Laterality Modality Chest Digital Radiogra phy 04/30/2024 10:1 8 PM [employer] Narrative 05/01/2024 10:01 AM [employer] PROCEDURE: XR CHEST 1VW PORTABLE, DATE/TIME OF EXAM: 04/30/2024 10:13 PM, LOCATION [facility] INDICATION: W18.30XA: Ground-level fall ADDITIONAL CLINICAL INFORMATION: [...] Charles Garsia MD on 05/01/2024 10:01 AM Procedure Note Charles Garsia MD - 05/01/2024 PROCEDURE: XR CHEST 1VW PORTABLE, DATE/TIME OF EXAM: 04/30/2024 10:13PM, LOCATION [facility] INDICATION: W18.30XA: Ground-level fall ADDITIONAL CLINICAL INFORMATION: [...] * XR Abdomen Kub (04/21/2024 5:41 PM [employer]) Only the most recent of4 resultswithin the time period is included. Anatomical Region Laterality Modality Abdomen Digital Radiogra phy 04/21/2024 5:50 PM [employer] Impressions 04/21/2024 6:02 PM [employer] IMPRESSION: 1.Nonobstructive bowel gas pattern. 2.G-tube in place. No extraluminal extravasation of contrast Report dictated by Virgil Clark MD I, Nj Escobar MD have personally reviewed and interpreted this examination/study. > Interpreting Provider: Nj Escobar MD on 04/21/2024 6:02 PM Narrative 04/21/2024 6:02 PM [employer] PROCEDURE: XR ABDOMEN KUB, DATE/TIME OF EXAM: 04/21/2024 5:41 PM, LOCATION [facility] INDICATION: Z43.1: Attention to G-tube (HCC) ADDITIONAL [...] DATE/TIME OF EXAM: 04/21/2024 5:41 PM, LOCATION [facility] INDICATION: Z43.1: Attention to G-tube (HCC) ADDITIONAL [...] Rosario MD DIAGNOSTIC IMAG ING ORDERABLES * EKG 12-LEAD (02/19/2024 5:27 PM CDT) Only the most recent of33 resultswithin the time period is included. Ventricular Rate 93 BPM [facility] Atrial Rate 93 BPM H MUSE P-R Interval 148 ms [facility] QRS Duration ms 74 ms [facility] Q-T Interval ms 366 ms [facility] QTC Calculation (Bezet) 455 ms [facility] Calculated P [place] 66 degrees [facility] Calculated R [place] -3 degrees [facility] M[facility] Calculated T [place] 83 degrees [facility] Interpretation EKG NORMAL SINUS RHYTHM NONSPECIFIC T WAVE ABNORMALITY ABNORMAL ECG WHEN COMPARED WITH ECG OF 09-JUN-2023 11:50, CRITERIA FOR SEPTAL INFARCT ARE NO LONGER PRESENT Confirmed by SABIHA OLSEN, [facility] ([id number]) on 02/19/2024 11:22:40 PM [facility] MUSE 02/19/2024 5:27 PM CDT 02/19/2024 11:22 PM CDT Brian Lawrence MD ECG ORDERABLES Performing Organization Address [facility]/ZIP Co de Phone Number [facility] MUSE * (ABNORMAL) LACTIC ACID BLOOD (02/19/2024 2:00 AM CDT) Only the most recent of11 resultswithin the time period is included. [facility] Lactic Acid-Stat 2.5(H) <=2.0 mmol/L 02/19/2024 2:41 AM CDT [facility] Blood BLOOD SPECIMEN / Unknown Lab Venipuncture / Unknown 02/19/2024 2:00 AM CDT 02/19/2024 2:20 AM CDT Brian Lawrence MD LAB - CHEMISTRY MARSHAL MEDEROS Performing Organization Address [facility] Co de Phone Number [address] [address], [place] [phone] * CK BLOOD (02/19/2024 2:00 AM CDT) Only the most recent of6 resultswithin the time period is included. [facility] CK Total 164 30 - 200 U/L 02/19/2024 3:08 AM CDT [facility] Blood BLOOD SPECIMEN / Unknown 02/19/2024 2:00 AM CDT 02/19/2024 2:20 AM CDT Brian Lawrence MD LAB - CHEMISTRY MARSHAL MEDEROS Performing Organization Address [facility] Co de Phone Number [address] [address], [place] [phone] * (ABNORMAL) LACOSAMIDE (02/18/2024 3:41 AM CDT) Only the most recent of13 resultswithin the time period is included. [facility] Lacosamide 14.3(H) 1.0 - 10.0 ug/mL 02/21/2024 6:09 PM CDT [employer] ([facility]) Comment: INTERPRETIVE INFORMATION: Lacosamide, Serum or Plasma [...] developed and its performance characteristics determined by [employer]. It has not been cleared or approved by the [place] Food and Drug Administration. This test was performed in a CLIA-certified laboratory and is intended for clinical purposes. Performed By: [facility] [employer] [address] [place] [address] Billet Recorder: Power Milian MD, PhD CLIA Number: [id number] Blood BLOOD SPECIMEN / Unknown Lab Venipuncture / Unknown 02/18/2024 3:41 AM CDT 02/18/2024 3:58 AM CDT Brian Lawrence MD LAB - CHEMISTRY [facility] Organization Address City/State/ZIP Co de Phone Number [facility] [employer] [facility]) [address] [place] [address] * (ABNORMAL) LEVETIRACETAM LEVEL (02/18/2024 3:41 AM CDT) Only the most recent of31 resultswithin the time period is included. [facility] Levetiracetam 75(H) 10 - 40 ug/mL 02/20/2024 2:43 AM CDT [facility] ([facility]) Comment: INTERPRETIVE INFORMATION: Keppra (Levetiracetam) Therapeutic Range: 10-40 ug/mL Toxic: Not well Established Pharmacokinetics of levetiracetam are affected by renal function. Adverse effects may include somnolence, weakness, headache and vomiting. This levetiracetam (Keppra) immunoassay uses the What[employer]rending reagents, which has known cross-reactivity with the drug brivaracetam (Briviact) and may report inaccurate results. Patients transitioning from levetiracetam to brivaracetam or those who are using both medications should not monitor drug concentrations with the [employer] assay. These patients should be monitored using a validated chromatographic methodology that distinguishes between drugs to determine drug concentrations. Performed By: [employer] [address] [place] [address] Billet Recorder: Power Milian MD, PhD CLIA Number: [id number] Blood BLOOD SPECIMEN / Unknown Lab Venipuncture / Unknown 02/18/2024 3:41 AM CDT 02/18/2024 3:58 AM CDT Brian Lawrence MD LAB - THERAPEUTIC DR DIAZ MONITORING ORDERABLES [employer] ([facility]) [address] [place] [address], [facility] * XR NECK SOFT TISSUE (11/18/2023 2:27 AM CDT) Anatomical Region Laterality Modality Head Radiographic Adan ging 11/18/2023 4:26 AM CDT Impressions 11/18/2023 8:13 AM CDT IMPRESSION: Patent airway without prevertebral soft tissue swelling or definite epiglottic enlargement. No definite tracheostomy tube displacement identified.. Report dictated by Herminio Ivy MD (residential driver). I, Edilberto Lynn MD have personally reviewed and interpreted this examination/study. > Interpreting Provider: Edilberto Lynn MD on 11/18/2023 8:13 AM Narrative 11/18/2023 8:13 AM CDT PROCEDURE: XR NECK SOFT TISSUE, DATE/TIME OF EXAM: 11/18/2023 2:27 AM, LOCATION [facility] INDICATION: J95.00: Tracheostomy complication, unspecified complication type [...] DATE/TIME OF EXAM: 11/18/2023 2:27 AM, LOCATION [facility] INDICATION: J95.00: Tracheostomy complication, unspecified complication type [...] Report dictated by Herminio Ivy MD (residential driver). I, Edilberto Lynn MD have personally reviewed [...] MD VASCULAR LAB ORDERAB LES * PTT [facility] (09/14/2023 6:18 AM CDT) Only the most recent of5 resultswithin the time period is included. APTT 31.6 23.0 - 38.4 Seconds 09/14/2023 6:48 AM CDT [facility] Comment:Suggested therapeuti c range for full dose I.V. unfractionated heparin therapy for venous thromboembolism is 71 to 109 seconds. Blood BLOOD SPECIMEN / Unknown Venipuncture / Unknown 09/14/2023 6:18 AM CDT 09/14/2023 6:24 AM CDT Walt Linder MD LAB - COAGULATION OR DERABLES [facility] [address] [place] [address], [facility] [phone] * TYPE + SCREEN PANEL (09/14/2023 6:18 AM CDT) Only the most recent of7 resultswithin the time period is included. Antibody Screen NEG 7:09 AM CDT [facility] ABO Rh O POS 09/14/2023 7:09 AM CDT [facility] Blood Bank BLOOD SPECIMEN / Unknown Venipuncture / Unknown 09/14/2023 6:18 AM CDT 09/14/2023 6:28 AM CDT Walt Linder MD LAB - BLOOD BANK ORD ERABLES Performing Organization Address City/[facility]/ZIP Co de Phone Number [facility] [address] [place] [address], [facility] [phone] * IR PERC G TO GJ TUBE EXCHANGE (09/09/2023 4:20 PM CDT) Only the most recent of3 resultswithin the time period is included. Anatomical Region Laterality Modality Abdomen X-Ray Angiograph y 09/15/2023 3:57 PM CDT Impressions 09/15/2023 4:03 PM CDT Impression: Successful conversion of the existing makeshift 18 Brazilian JELLY Alanis gastrostomy catheter for a new 18-Brazilian x 45 cm balloon-retention gastrojejunostomy catheter under [...] PM Narrative 09/15/2023 4:03 PM CDT PROCEDURE: IR PERC G TO GJ TUBE [...] he would need to go to [facility]. House Nurse: Dr. Luis Cullen, attending physician. Anesthesia: None Procedure: Exchange of the existing 18 Brazilian JELLY gastrostomy catheter for a new 18 Brazilian by 45 cm balloon-retention gastrojejunostomy catheter under fluoroscopic guidance. Fluoroscopic time: 2.2 minutes (10 mg) Contrast: 10 mL of Isovue-300 Procedure in detail: The procedure, risks, and possible complications were explained to the proxy in detail, and informed consent was obtained. The patient was placed supine on the procedure table. A professor of philosophy film of abdomen was obtained, which showed unremarkable abdomen. Contrast was hand injected through the existing gastrostomy catheter and showed opacification of the gastric lumen. A 0.035 inch Glidewire was advanced into the stomach through the existing catheter which was subsequently removed over the wire. Using a 4 Brazilian Kumpe catheter, the Glidewire was advanced into the jejunum under fluoroscopic guidance. The Glidewire was exchanged for a stiffer wire. A new 18 Brazilian by 45 cm gastrojejunostomy catheter was then [...] he would need to go to [facility]. House Nurse: Dr. Luis Cullen, attending physician. Anesthesia: None Procedure: Exchange of the existing 18 Brazilian JELLY gastrostomy catheterfor a new 18 Brazilian by 45 cm balloon-retention gastrojejunostomy catheterunder fluoroscopic guidance. Fluoroscopic time: 2.2 minutes (10 mg) Contrast: 10 mL of Isovue-300 Procedure in detail: The procedure, risks, and possible complications were explained to the proxy in detail, and informed consent was obtained. The patient wasplaced supine on the procedure table. A professor of philosophy film of abdomen was obtained,which showed unremarkable abdomen. Contrast was hand injected through the existing gastrostomy catheter and showed opacification of the gastric lumen. A 0.035 inch Glidewire was advanced into the stomach through the existing catheter which was subsequently removed over the wire. Using a 4 Brazilian Kumpe catheter, the Glidewire was advanced into the jejunum under fluoroscopic guidance. The Glidewire was exchanged for a stiffer wire. A new 18 Brazilian by 45 cm gastrojejunostomy catheter was then [...] the [facility] well [facility]. There were no immediate complicationsassociated with the procedure. Impression: Successful conversion of the existing makeshift 18 FrenchMIC Alanis gastrostomy catheter for a new 18-Brazilian x 45 cm balloon-retention gastrojejunostomy catheter under [...] UA Yellow Straw, Yellow 09/06/2023 11:52 PM [facility] Clarity UA Clear Clear 09/06/2023 11:52 PM [facility] Specific [place] UA 1.009 1.005 - 1.030 09/06/2023 11:52 PM [facility] pH UA 6.0 5.0 - 8.0 pH 09/06/2023 11:52 PM [facility] Protein UA Negative Negative 09/06/2023 11:52 PM [facility] Glucose UA Negative Negative 09/06/2023 11:52 PM [facility] Ketone UA 1+(A) Negative 09/06/2023 11:52 PM [facility] Bilirubin UA Negative Negative 09/06/2023 11:52 PM [facility] Blood UA Negative Negative 09/06/2023 11:52 PM [facility] Nitrite UA Negative Negative 09/06/2023 11:52 PM [facility] Leukocyte Esterase Negative Negative 09/06/2023 11:52 PM [facility] Urobilinogen UA 2.0(A) Negative mg/dL 09/06/2023 11:52 PM [facility] RBC UA 0-2 None Seen, 0-2, 3-5 /HPF 09/06/2023 11:52 PM [facility] WBC UA 0-5 None Seen, 0-5 /HPF 09/06/2023 11:52 PM CDT [facility] Squamous Epithelial Cells UA 0-2 None Seen, 0-2, 3-5 /HPF 09/06/2023 11:52 PM CDT [facility] Urine URINE SPECIMEN OBTAINED BY SINGLE CATHETERIZATION OF URINARY BLADDER / Unknown Collection / Unknown 09/06/2023 11:41 PM CDT 09/06/2023 11:45 PM CDT Narrative [facility] - 09/06/2023 11:52 PM CDT Culture Not Indicated Quan Gan MD LAB - URINALYSIS ORD ERABLES [facility] [address] [place] [address], [facility] [phone] * [place] SCOPE THRU TRACHEOSTOMY (08/29/2023 7:52 AM CDT) Narrative Alden Hurtado MD - 08/29/2023 7:52 AM CDT Alden Hurtado MD 08/29/2023 7:52 AM Procedure Note Anesthesia: none Endoscopy Type: Flexible [...] Dictated by Sierra Lyman M.D. - Diagnostic Esol Teacher. I, John Stubbs MD have personally reviewed and interpreted this examination/study. > Interpreting Provider: John Stubbs MD on 08/26/2023 8:24 PM Narrative 08/26/2023 8:24 PM CDT PROCEDURE: FL SWALLOWING FUNCTION STUDY, DATE/TIME OF EXAM: 08/26/2023 12:34 PM, LOCATION [facility] INDICATION: R13.12: Oropharyngeal dysphagia R13.10: Problems with swallowing and mastication ADDITIONAL CLINICAL INFORMATION: Ordering Provider Reason For Exam: Technologist Note: Additional: COMPARISON: None. FLUOROSCOPY TIME: 3.87 minutes; Number of images: [id number] Procedure Note John Stubbs MD - 08/26/2023 PROCEDURE: FL SWALLOWING FUNCTION STUDY, DATE/TIME OF EXAM: 08/26/2023 12:34 PM, LOCATION [facility] INDICATION: R13.12: Oropharyngeal dysphagia R13.10: Problems with swallowing and mastication ADDITIONAL CLINICAL INFORMATION: Ordering Provider Reason For Exam: Technologist Note: Additional: COMPARISON: None. FLUOROSCOPY TIME: 3.87 minutes; Number of images: [id number] IMPRESSION: Fluoroscopy was provided for a procedure performed by Speech Therapy. Please see the Speech Therapy report for interpretation. > Dictated by Sierra Lyman M.D. - Diagnostic Esol Teacher. I, John Stubbs MD have personally reviewed and interpreted this examination/study. > Interpreting Provider: John Stubbs MD on 08/26/2023 8:24 PM Alden Hurtado MD FLUOROSCOPY ORDERABL ES * VALPROIC ACID LEVEL (06/25/2023 2:33 PM [employer]) Only the most recent of47 resultswithin the time period is included. Valproic Acid Total 51 50 - 100 ug/mL 06/25/2023 3:58 PM [employer] [facility] Blood BLOOD SPECIMEN / Unknown Lab Venipuncture / Unknown 06/25/2023 2:33 PM [employer] 06/25/2023 3:19 PM [employer] Leatha Vinson MD LAB - CHEMISTRY MARSHAL MEDEROS [facility] Organization Address City/State/ZIP Co de Phone Number [address] [phone] [phone] * (ABNORMAL) DIFFERENTIAL MANUAL (06/24/2023 11:46 AM [employer]) Only the most recent of5 resultswithin the time period is included. Neutrophil % 69 41 - 74 % [...] Lab Venipuncture / Unknown 06/24/2023 11:46 AM [employer] 06/24/2023 11:56 AM [employer] Gaurav Nogueira MD LAB - HEMATOLOGY ORDERABLES [facility] [address] [place] [address], [facility] [phone] * CLOBAZAM QUANT BLOOD (06/21/2023 5:57 AM [employer]) Only the most recent of5 resultswithin the time period is included. Clobazam 264 30 - 300 ng/mL 06/26/2023 2:42 PM [employer] [facility] [employer] ([facility]) Comment: INTERPRETIVE INFORMATION: Clobazam and Metabolite, Quant, S/P Clobazam Therapeutic Range: 30-300 ng/mL Toxic Range: Greater than 500 ng/mL N-Desmethylclobazam Therapeutic Range: 300-3000 ng/mL Toxic Range: Greater than 5000 ng/mL Clobazam is a benzodiazepine drug indicated for adjunctive treatment for seizures associated with Laci-Gastaut syndrome in patients 2 years and older. The therapeutic range is based on serum, pre-dose (trough) draw collection at steady-state concentration. The pharmacokinetics of clobazam are influenced by drug-drug interactions and by poor [id number] metabolism. The metabolite, N-desmethylclobazam has about 20% activity of clobazam. Adverse effects may include constipation, somnolence, sedation and skin rash. The concomitant use of clobazam with other central nervous system (PHY THERAPIST) depressants may increase the risk of somnolence and sedation. Test developed and characteristics determined by [employer]. See Compliance Statement B: [employer]CS N-Desmethylclobazam 589 300 - 3000 ng/mL 06/26/2023 2:42 PM [employer] [facility] [employer] ([facility]) Comment: Performed By: [employer] [address] [place] [address] Billet Recorder: Power Milian MD, PhD CLIA Number: [id number] Blood BLOOD SPECIMEN / Unknown Lab Venipuncture / Unknown 06/21/2023 5:57 AM [employer] 06/21/2023 6:17 AM [employer] Norma Briones MD LAB - CHEMI STRY ORDERABLES [facility] [employer] ([facility]) [address] * VANCOMYCIN LEVEL TROUGH (06/16/2023 2:51 AM [employer]) Only the most recent of14 resultswithin the time period is included. Vancomycin Trough 17.7 10.0 - 20.0 ug/mL 06/16/2023 3:51 AM [employer] [facility] Blood BLOOD SPECIMEN / Unknown Venipuncture / Unknown 06/16/2023 2:51 AM [employer] 06/16/2023 3:00 AM [employer] [facility] - 06/16/2023 3:51 AM [employer] See institution protocol. Gaurav Nogueira MD LAB - CHEMISTRY ORDERABLES Performing Organization Address [facility] Co de Phone Number [address] [address], [facility] [phone] * VANCOMYCIN LEVEL PEAK (06/15/2023 6:32 AM [employer]) Only the most recent of3 resultswithin the time period is included. Vancomycin Peak 36.7 25.0 - 40.0 ug/mL 06/15/2023 7:12 AM [employer] [facility] Blood BLOOD SPECIMEN / Unknown Lab Venipuncture / Unknown 06/15/2023 6:32 AM [employer] 06/15/2023 6:49 AM [employer] [facility] - 06/15/2023 7:12 AM [employer] See institution protocol. Data does not support the use of vancomycin peak concentration for efficacy. Gaurav Nogueira MD LAB - CHEMISTRY ORDERABLES Performing Organization Address [facility] Co de Phone Number [address] [address], [facility] [phone] * CARDIAC EKG ORDER (06/13/2023 11:50 AM [employer]) Only the most recent of23 resultswithin the time period is included. Narrative 06/13/2023 11:50 AM [employer] Ordered by an unspecified provider. Scanned Document CARDIAC SERVICES ORD ERABLES * CULTURE BLOOD (06/13/2023 8:47 AM [employer]) Only the most recent of27 resultswithin the time period is included. Culture No growth day 5 JELLY 06/18/2023 10:30 AM [employer] [facility] Blood PERIPHERAL BLOOD / Unknown Lab Venipuncture / Unknown 06/13/2023 8:47 AM [employer] 06/13/2023 8:50 AM [employer] Gaurav Nogueira MD LAB - MICROBIOLO GY ORDERABLES Performing Organization Address [facility] de Phone Number [facility] [address] [place] [address], [facility] [phone] * (ABNORMAL) BCID PANEL (06/11/2023 5:46 PM [employer]) Only the most recent of2 resultswithin the time period is included. Pathologist [facility] Staphylococcus species Detected (A) Not detected 06/13/2023 12:20 AM [employer] [facility] Comment:Staphylococcus speci es (not S. aureus, S. lugdunensis, or S. epidermidis). Blood PERIPHERAL BLOOD / Unknown Venipuncture / Unknown 06/11/2023 5:46 PM [employer] 06/11/2023 6:05 PM [employer] Narrative [facility] - 06/13/2023 12:20 AM [employer] Blood Culture ID Panel performed by [employer] multiplex PCR. Test Panel includes: Antimicrobial Resistance Genes: Mec A/C and MREJ (methicillin-resistance gene-MRSA) and van A/B (vancomycin-resistance gene). Gram Positive Bacteria: Enterococcus faecalis, Enterococcus faecium, Staphylococcus (genus), Staphylococcus aureus, Staphylococcus epidermidis, Staphylococcus lugdunensis, Streptococcus (genus), Streptococcus agalactiae (Group B), Streptococcus pneumoniae, Streptococcus pyogenes (Group A). Gaurav Nogueira MD LAB - MICROBIOLO GY ORDERABLES Performing Organization Address [facility] Co de Phone Number [facility] [address] [place] [address], [facility] [phone] * (ABNORMAL) MRSA DNA PCR (06/11/2023 2:42 PM [employer]) Only the most recent of6 resultswithin the time period is included. [facility] MRSA DNA by PCR Detected( A) Not detected 06/11/2023 7:32 PM [employer] [facility] Microbiology SPECIMEN FROM NASAL FOSSAE / Unknown Collection / Unknown 06/11/2023 2:42 PM [employer] 06/11/2023 2:52 PM [employer] Narrative [facility] - 06/11/2023 7:32 PM [employer] 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 Gaurav Nogueira MD LAB - MICROBIOLO GY ORDERABLES Performing Organization Address [facility]/ZIP Co de Phone Number [facility] [address] [place] [address], [facility] [phone] * (ABNORMAL) CULTURE URINE (06/11/2023 2:42 PM [employer]) Only the most recent of6 resultswithin the time period is included. Culture Urine >100,000 CFU/mL Yeast(A) JELLY 06/13/2023 5:56 AM [employer] [facility] Comment:No further workup pe rformed Urine URINE SPECIMEN OBTAINED BY SINGLE CATHETERIZATION OF URINARY BLADDER / Unknown Collection / Unknown 06/11/2023 2:42 PM [employer] 06/11/2023 2:53 PM [employer] Gaurav Nogueira MD LAB - MICROBIOLO GY ORDERABLES Performing Organization Address [facility] de Phone Number [facility] [address] [place] [address], [facility] [phone] * (ABNORMAL) URINALYSIS REFLEX TO MICROSCOPIC NO CULTURE (06/11/2023 2:22 PM [employer]) Only the most recent of13 resultswithin the time period is included. Color UA Olivia(A) Straw, Yellow 06/11/2023 3:15 PM [employer]ES [facility] Clarity UA Slt Cloudy(A) Clear 06/11/2023 3:15 PM [employer]ES [facility] Specific [place] UA 1.030 1.005 - 1.030 06/11/2023 3:15 PM [facility] pH UA 5.0 5.0 - 8.0 pH 06/11/2023 3:15 PM [facility] Protein UA 1+(A) Negative 06/11/2023 3:15 PM [...] Unknown Collection / Unknown 06/11/2023 2:22 PM [employer] 06/11/2023 2:52 PM [employer] Narrative [facility] - 06/11/2023 3:15 PM [employer] Gaurav Nogueira MD LAB - URINALYSIS ORDERABLES [facility] [address] [place] [address], [facility] [phone] * SUSCEPTIBILITY NOT OTHERWISE SPECIFIED (06/11/2023 2:19 PM [employer]) Prelim Report SEE NOTE 06/19/2023 11:05 AM COSMETIC SALES [employer] ([facility]) Comment: Specimen received and in progress. SMICCefiderocol 0.25 Suscept Performed By: [employer] [address] [id number] Billet Recorder: Power Milian MD, PhD CLIA Number: [id number] Final Report SEE NOTE 06/19/2023 11:05 AM [employer] ([facility]) Comment: Pseudomonas aeruginosa Organism identified by client SMICCefiderocol 0.25 Suscept Performed By: [employer] [address] [place] [address] Billet Recorder: Power Milian MD, PhD CLIA Number: [id number] Microbiology LOWER RESPIRATORY FLUID SPECIMEN / Unknown Collection / Unknown 06/11/2023 2:19 PM [employer] 06/11/2023 2:52 PM [employer] Gaurav Nogueira MD LAB - MICROBIOLO GY ORDERABLES [employer] ([facility]) [address] [place] [address], [facility] * (ABNORMAL) CULTURE SPUTUM+GRAM STAIN (06/11/2023 2:19 PM [employer]) Only the most recent of7 resultswithin the time period is included. Culture Moderate Pseudomonas aeruginosa (mucoid)(A) 06/20/2023 9:48 AM COSMETIC SALES [facility] Comment:Isolate is multi franchesca g resistant organism (MDRO). Culture Moderate Staphylococcus aureus methicillin-resista nt (MRSA)(A) JELLY 06/20/2023 9:48 AM [employer]IC SALES [facility] Comment:Staphylococcus aureu s methicillin-resistant (MRSA) detected by penicillin binding protein immunoassay. Contact precautions required. Conventional antibiotic susceptibility testing to follow. Culture Rare normal oropharyngeal heidi 06/20/2023 9:48 AM [employer]ES [facility] Gram Stain <10 per low power field Squamous epithelial cells 06/20/2023 9:48 AM [employer] [facility] Gram Stain >= 25 per low power field Polymorphonuclear cells 06/20/2023 9:48 AM [employer] SALES [facility] Gram Stain Light Gram-positive cocci 06/20/2023 9:48 AM [employer] SALES [facility] Microbiology LOWER RESPIRATORY FLUID SPECIMEN / Unknown Collection / Unknown 06/11/2023 2:19 PM [employer] 06/11/2023 2:52 PM [employer] SALES Narrative [facility] - 06/20/2023 9:48 AM [employer]IC SALES This isolate is a multidrug resistant organism [...] Nogueira MD LAB - MICROBIOLO GY ORDERABLES [facility] [address] [place] [address], [facility] [phone] * LACTIC ACID BLOOD REFLEX TO REPEAT (06/09/2023 10:53 PM [employer]) Only the most recent of16 resultswithin the time period is included. Pathologist [facility] Lactic Acid-Stat 2.0 <=2.0 mmol/L 06/09/2023 11:27 PM [employer]IC SALES [facility] Blood BLOOD SPECIMEN / Unknown Venipuncture / Unknown 06/09/2023 10:53 PM [employer] 06/09/2023 11:02 PM [employer] Leonardo Hanson MD LAB - CHEMISTRY MARSHAL MEDEROS Performing Organization Address City/[facility]/ZIP Co de Phone Number [address] [address], [facility] [phone] * LACTIC ACID REPEAT REFLEX (06/09/2023 8:17 PM [employer]ES) Only the most recent of10 resultswithin the time period is included. [facility] Lactic Acid Repeat Reflex Order LACTIC ACID REPEAT HAS BEEN ORDERED 06/09/2023 10:30 PM [employer]IC SALES [facility] Blood BLOOD SPECIMEN / Unknown Venipuncture / Unknown 06/09/2023 8:17 PM [employer] 06/09/2023 8:58 PM [employer] Leonardo Hanson MD LAB - CHEMISTRY MARSHAL MEDEROS Performing Organization Address [facility]/ZIP Co de Phone Number [address] [address], [facility] [phone] * SARS-COV-2 (COVID-19)+INFLU A+B PCR RAPID (06/09/2023 8:15 PM [employer]) Only the most recent of5 resultswithin the time period is included. [facility] COVID-19 PCR Not detected Not detected 06/09/19 9:19 PM [facility] Influenza A Rapid BILLY Not Detected Not Detected 06/09/2023 9:19 PM [facility] Influenza B BILLY Rapid Not Detected Not Detected 06/09/2023 9:19 PM [facility] Microbiology SPECIMEN FROM NASOPHARYNGEAL STRUCTURE / Unknown Collection / Unknown 06/09/2023 8:15 PM [employer] 06/09/2023 8:33 PM [employer] SALES Narrative [facility] - 06/09/2023 9:19 PM [employer] Influenza assay performed by [employer]. [...] amplification assay performance was validated by [facility]. This test has been authorized by the [...] Hanson MD LAB - MICROBIOLOGY O RDERABLES [facility] [address] [place] [phone], [facility] [phone] * (ABNORMAL) BLOOD GASES ART + COOX PANEL (06/09/2023 8:14 PM [employer]) Only the most recent of15 resultswithin the time period is included. pH Arterial 7.41 7.35 - 7.45 pH 06/09/2023 8:41 PM [employer] [facility] pO2 Arterial 82 80 - 100 mmHg 06/09/2023 8:41 PM [facility] pCO2 Arterial 40 35 - 45 mmHg 8:41 PM [employer] [facility] HCO3 Arterial 25.4 20.0 - 30.0 mmol/L [...] Arterial Puncture / Unknown 06/09/2023 8:14 PM [employer] 06/09/2023 8:34 PM [facility] - 06/09/2023 8:41 PM [facility] Carboxyhemoglobin Normal Concentration: Non-smokers: 0-2%; Smokers: 0-9%; Toxic: >20% Leonardo Hanson MD LAB - BLOOD GASES OR DERABLES [facility] [address] [place] [phone], [facility] [phone] * (ABNORMAL) BLOOD GASES ANA + COOX PANEL (06/09/2023 7:02 PM [employer]) Only the most recent of6 resultswithin the [...] Unknown Venipuncture / Unknown 06/09/2023 7:02 PM [employer] 06/09/2023 7:08 PM [facility] - 06/09/2023 7:12 PM [facility] Carboxyhemoglobin Normal Concentration: Non-smokers: 0-2%; Smokers: 0-9%; Toxic: >20% Leonardo Hanson MD LAB - BLOOD GASES OR DERABLES [facility] [address] [place] [address], [place] [phone] * (ABNORMAL) URINE MICROSCOPIC ONLY REFLEX TO CULTURE (06/09/2023 3:45 PM [employer]) Reflex Status Culture to follow 06/09/2023 4:02 [...] Unknown Collection / Unknown 06/09/2023 3:45 PM [employer] 06/09/2023 3:51 PM [employer] Narrative [facility] - 06/09/2023 4:02 PM [employer] Leonardo Hanson MD LAB - URINALYSIS ORD ERABLES Performing Organization Address City/[facility]/ZIP Co de Phone Number [address] [address], [place] [phone] * TROPONIN-I HIGH SENSITIVE REFLEX 1HOUR (06/09/2023 2:37 PM [employer]) Only the most recent of2 resultswithin the time period is included. Pathologist [facility] Troponin I High Sensitive 6 <=35 ng/L 06/09/2023 3:20 PM [facility] Delta Troponin I HS <0 <6 ng/L 06/09/2023 3:20 PM [facility] Blood BLOOD SPECIMEN / Unknown Venipuncture / Unknown 06/09/2023 2:37 PM [employer] 06/09/2023 2:47 PM [employer] Leonardo Hanson MD LAB - CHEMISTRY ORDE RABSHILPA Performing Organization Address City/[facility]/ZIP Co de Phone Number [address] [address], [place] [phone] * TROPONIN-I HIGH SENSITIVE BASELINE + 1HR (06/09/2023 1:14 PM [employer]) Only the most recent of2 resultswithin the time period is included. Troponin I High Sensitive 7 <=35 ng/L 06/09/2023 2:31 PM [employer] [facility] Blood BLOOD SPECIMEN / Unknown Venipuncture / Unknown 06/09/2023 1:14 PM [employer] 06/09/2023 1:41 PM [employer] Leonardo Hanson MD LAB - CHEMISTRY MARSHAL MEDEROS Performing Organization Address City/[facility]/ZIP Co de Phone Number [facility] [address] [place] [phone], [facility] [phone] * TSH REFLEX FREE T4 (06/09/2023 1:14 PM [employer]) Only the most recent of5 resultswithin the time period is included. Pathologist [facility] TSH 1.238 0.350 - 4.940 uIU/mL 06/09/2023 2:31 PM [employer] [facility] Blood BLOOD SPECIMEN / Unknown Venipuncture / Unknown 06/09/2023 1:14 PM [employer] 06/09/2023 1:41 PM [employer] Leonardo Hanson MD LAB - CHEMISTRY MARSHAL MEDEROS Performing Organization Address City/[facility]/ZIP Co de Phone Number [address] [address], [facility] [phone] * PROCALCITONIN LEVEL (02/28/2023 5:41 AM CDT) Only the most recent of10 resultswithin the time period is included. PROCALCITONIN <0.02 <=0.10 ng/mL 02/28/2023 8:42 AM CDT [facility] Blood BLOOD SPECIMEN / Unknown Lab Venipuncture / Unknown 02/28/2023 5:41 AM CDT 02/28/2023 6:51 AM CDT Narrative [facility] - 02/28/2023 8:42 AM CDT The change in procalcitonin (PCT) concentration over time provides support in decision making on antibiotic discontinuation for suspected or confirmed septic patients. Follow-up samples should be tested once every 1-2 days based upon physician discretion taking into account the patient s evolution and progress. Consider discontinuation of antibiotic therapy if the PCT current is <= 0.5 ng/mL or if the delta PCT is > 80%. Duration of antibiotics should not be determined solely on PCT; established guidelines for the indication should be followed. PCT peak: Highest observed PCT concentration PCT current: Most recent PCT concentration Calculate delta PCT using the following equation: Delta PCT = PCT Peak PCT current X 100% PCT Peak The Change in Procalcitonin Calculator is available at [email or web address] If clinical picture has not improved and PCT remains high, reevaluate and consider treatment failure or other causes. Cami Worthington MD LAB - CHEMISTRY MARSHAL MEDEROS [facility] Organization Address City/State/ZIP Co de Phone Number [address] [phone] [phone] * (ABNORMAL) RENAL FUNCTION PANEL (02/28/2023 5:41 AM CDT) Only the most recent of28 resultswithin the time period is included. BUN 9 7 - 26 mg/dL 02/28/2023 7:25 AM [facility] Creatinine 0.41(L) 0.71 - 1.16 mg/dL 02/28/2023 7:25 AM [facility] Sodium 138 136 - 145 mmol/L 02/28/2023 7:25 AM [facility] Potassium 4.7(H) 3.5 - 4.5 mmol/L 02/28/2023 7:25 AM [facility] Chloride 107 98 - 107 mmol/L 02/28/2023 7:25 AM [facility] CO2 27 22 - 29 mmol/L 02/28/2023 7:25 AM [facility] Glucose 83 70 - 115 mg/dL 02/28/2023 7:25 AM [facility] Albumin 2.5(L) 3.4 - 5.0 g/dL 02/28/2023 7:25 AM [facility] Calcium 9.2 8.4 - 10.2 mg/dL 02/28/2023 7:25 AM [facility] Phosphorus 2.9 2.8 - 5.1 mg/dL 02/28/2023 7:25 AM [facility] Anion Gap 4(L) 6 - 16 02/28/2023 7:25 AM [facility] BUN/Creatinine Ratio 22 7 - 23 02/28/2023 7:25 AM [facility] Osmolality Calculated 284 275 - 295 mOsm/kg 02/28/2023 7:25 AM [facility] eGFR by CKD-EPI >90 >=90 mL/min/1.7 3 m2 02/28/2023 7:25 AM [facility] Blood BLOOD SPECIMEN / Unknown Lab Venipuncture / Unknown 02/28/2023 5:41 AM CDT 02/28/2023 6:57 AM CDT Cami Worthington MD LAB - CHEMISTRY MARSHAL MEDEROS [address] [address], [facility] [phone] * ALT (02/28/2023 5:41 AM CDT) ALT 7 5 - 55 U/L 02/28/2023 7:37 AM T [facility] Blood BLOOD SPECIMEN / Unknown Lab Venipuncture / Unknown 02/28/2023 5:41 AM CDT 02/28/2023 6:57 AM CDT Cami Worthington MD LAB - CHEMISTRY MARSHAL MEDEROS [address] [address], [facility] [phone] * AST BLOOD (02/28/2023 5:41 AM CDT) AST 13 5 - 34 U/L 02/28/2023 7:37 AM CDT [facility] Blood BLOOD SPECIMEN / Unknown Lab Venipuncture / Unknown 02/28/2023 5:41 AM CDT 02/28/2023 6:57 AM CDT Cami Worthington MD LAB - CHEMISTRY MARSHAL MEDEROS Performing Organization Address City/[facility]/ZIP Co de Phone Number [address] [address], [facility] [phone] * PROTEIN TOTAL BLOOD (02/28/2023 5:41 AM CDT) Protein Total 6.5 6.0 - 8.3 g/dL 02/28/2023 7:37 AM CDT [facility] Blood BLOOD SPECIMEN / Unknown Lab Venipuncture / Unknown 02/28/2023 5:41 AM CDT 02/28/2023 6:57 AM CDT Cami Worthington MD LAB - CHEMISTRY MARSHAL MEDEROS Performing Organization Address [facility]/ZIP Co de Phone Number [address] [address], [facility] [phone] * BILIRUBIN TOTAL+DIRECT BLOOD PANEL (02/28/2023 5:41 AM CDT) Bilirubin Total 0.2 0.2 - 1.2 mg/dL 06/2022 7:38 AM CDT [facility] Bilirubin Conjugated 0.1 0.1 - 0.5 mg/dL 02/28/2023 7:38 AM CDT [facility] Bilirubin Unconjugated 0.1 Unconjugated Bilirubin is a calculated value: Reference ranges have not been established. mg/dL 02/28/2023 7:38 AM CDT [facility] Blood BLOOD SPECIMEN / Unknown Lab Venipuncture / Unknown 02/28/2023 5:41 AM CDT 02/28/2023 6:57 AM CDT Cami Worthington MD LAB - CHEMISTRY MARSHAL MEDEROS [id number] [place] [address], [facility] [phone] * ALKALINE PHOSPHATASE BLOOD (02/28/2023 5:41 AM CDT) Alkaline Phosphatase 79 40 - 150 U/L 02/28/2023 7:37 AM CDT [facility] Blood BLOOD SPECIMEN / Unknown Lab Venipuncture / Unknown 02/28/2023 5:41 AM CDT 02/28/2023 6:57 AM CDT Cmai Worthington MD LAB - CHEMISTRY MARSHAL MEDEROS [address] [address], [facility] [phone] * CT CHEST ABDOMEN PELVIS WO CONT [...] comprehension and verification. > Dictated by Nash Arreoal MD (residential driver). I, Bebo Kuo MD have personally reviewed and interpreted this examination/study. > Interpreting Provider: Bebo Kuo MD on 02/23/2023 8:19 AM Narrative 02/23/2023 8:19 AM CDT PROCEDURE: CT CHEST ABDOMEN PELVIS WO CONT, DATE/TIME OF EXAM: 02/23/2023 5:59 AM, LOCATION [facility] INDICATION: K94.23: PEG tube malfunction (CMS/HCC) ADDITIONAL CLINICAL INFORMATION: Ordering Provider Reason For Exam: concern free air under liver, GJ tube issue [...] CONT, DATE/TIME OF EXAM:02/23/2023 5:59 AM, LOCATION [facility] INDICATION: K94.23: PEG tube malfunction (CMS/HCC) ADDITIONAL [...] the patient's careprovider, Dr. Coombs by Dr. aNsh Arreola via telephone at 02/23/2023 6:30 AM with readback comprehension and verification. > Dictated by Nash Arreola MD (residential driver). I, Bebo Kuo MD have personally reviewed [...] Report dictated by Ashu Welch M.D. (residential driver) 02/23/2023 4:31 AM IRachel MD have personally reviewed and interpreted this examination/study. > Interpreting Provider: Rachel Phillips MD on 02/23/2023 9:26 AM Narrative 02/23/2023 9:26 AM CDT PROCEDURE: XR ABD OBSTR SERIES W CHEST 1VW, DATE/TIME OF EXAM: 02/23/2023 4:13 AM, LOCATION [facility] INDICATION: K94.23: PEG tube malfunction (CMS/HCC) ADDITIONAL CLINICAL INFORMATION: Ordering Provider Reason For Exam: possible bowel obstructive vs GJ tube obstruction COMPARISON: [...] 1VW, DATE/TIME OF EXAM:02/23/2023 4:13 AM, LOCATION [facility] INDICATION: K94.23: PEG tube malfunction (CMS/HCC) ADDITIONAL [...] Report dictated by Ashu Welch M.D. (residential driver) 02/23/2023 4:31 AM IRachel MD have personally reviewed and interpreted this examination/study. > Interpreting Provider: Rachel Phillips MD on 02/23/2023 9:26 AM Kortney Vega MD DIAGNOSTIC IMAGING O RDERABLES * (ABNORMAL) TRIGLYCERIDES BLOOD (01/14/2023 9:35 AM CDT) Only the most recent of3 resultswithin the time period is included. Triglycerides 339(H) <150 mg/dL 01/14/2023 10:09 AM CDT [facility] Comment: ATP III Classification of Triglycerides: <150 mg/dL: Normal 150 - 199 mg/dL: Borderline High 200 - 400 mg/dL: High >500 mg/dL: Very High Blood BLOOD SPECIMEN / Unknown Venipuncture / Unknown 01/14/2023 9:35 AM CDT 01/14/2023 9:43 AM CDT Lisset Norris MD LAB - CHEMISTRY ORDByron MEDEROS [address] [address], [place] [phone] * CALCIUM IONIZED WHOLE BLOOD (01/14/2023 4:24 AM CDT) Only the most recent of17 resultswithin the time period is included. Calcium Ionized 1.32 mmol/L 01/14/2023 4:31 AM CDT [facility] pH 7.42 7.35 - 7.45 pH 01/14/2023 4:31 AM CDT [facility] Ionized Calcium pH Adjusted 1.33 1.19 - 1.34 mmol/L 01/14/2023 4:31 AM CDT [facility] Blood BLOOD SPECIMEN / Unknown Venipuncture / Unknown 01/14/2023 4:24 AM CDT 01/14/2023 4:29 AM CDT Ck Small MD LAB - CHEMISTRY ORDERABLES Performing Organization Address [facility]/ZIP Co de Phone Number [address] [address], [place] [phone] * FOLATE (01/02/2023 3:39 AM CDT) Only the most recent of3 resultswithin the time period is included. Folate 14.7 7.0 - 31.4 ng/mL 01/02/2023 4:38 AM CDT [facility] Blood BLOOD SPECIMEN / Unknown Venipuncture / Unknown 01/02/2023 3:39 AM CDT 01/02/2023 3:51 AM CDT Blair Cagle MD LAB - CHEMISTRY ORD ERABLES [address] [address], [place] [phone] * (ABNORMAL) VITAMIN B12 (01/02/2023 3:39 AM CDT) Only the most recent of3 resultswithin the time period is included. Vitamin B12 1,814(H) 213 - 816 pg/mL 01/02/2023 4:38 AM CDT [facility] Blood BLOOD SPECIMEN / Unknown Venipuncture / Unknown 01/02/2023 3:39 AM CDT 01/02/2023 3:51 AM CDT Blair Cagle MD LAB - CHEMISTRY ORD ERABLES [address] [address], [facility] [phone] * IRON + TRANSFERRIN PANEL (01/02/2023 3:39 AM CDT) [facility] Iron 53 50 - 175 ug/dL 01/02/2023 4:53 AM CDT [facility] Transferrin 255 174 - 382 mg/dL 01/02/2023 4:53 AM CDT [facility] Transferrin Saturation % 17 16 - 50 % 01/02/2023 4:53 AM CDT [facility] TIBC Calculated 319 240 - 450 ug/dL 01/02/2023 4:53 AM CDT [facility] Blood BLOOD SPECIMEN / Unknown Venipuncture / Unknown 01/02/2023 3:39 AM CDT 01/02/2023 3:43 AM CDT Blair Cagle MD LAB - CHEMISTRY ORD ERABLES [address] [address], [facility] [phone] * FERRITIN (01/02/2023 3:39 AM CDT) Ferritin 55 22 - 275 ng/mL 01/02/2023 5:11 AM CDT [facility] Blood BLOOD SPECIMEN / Unknown Venipuncture / Unknown 01/02/2023 3:39 AM CDT 01/02/2023 3:43 AM CDT Blair Cagle MD LAB - CHEMISTRY ORD ERABLES Performing Organization Address [facility] Co de Phone Number [facility] [address] [place] [address], [facility] [phone] * CORTISOL BLOOD AM (01/02/2023 3:39 AM CDT) Pathologist [facility] Cortisol AM 7.8 3.7 - 19.4 ug/dL 01/02/2023 4:23 AM CDT [facility] Blood BLOOD SPECIMEN / Unknown Venipuncture / Unknown 01/02/2023 3:39 AM CDT 01/02/2023 3:51 AM CDT Narrative [facility] - 01/02/2023 4:23 AM CDT Normal cortisol levels are generally highest in the morning hours and lowest from late evening through the environmental compliance engineer hours (8 PM to 4 AM). The PM measurements of cortisol run approximately one-half to one-third of the AM values. Blair Cagle MD LAB - CHEMISTRY ORD ERABLES Performing Organization Address [facility] Co de Phone Number [address] [address], [place] [phone] * AMMONIA (01/01/2023 12:46 AM CDT) Only the most recent of2 resultswithin the time period is included. Ammonia 31 <=72 umol/L 01/01/2023 1:28 AM CDT [facility] Blood BLOOD SPECIMEN / Unknown Venipuncture / Unknown 01/01/2023 12:46 AM CDT 01/01/2023 1:09 AM CDT Ck Small MD LAB - CHEMISTRY ORDERABLES Performing Organization Address [facility] Co de Phone Number [address] [address], [facility] [phone] * TROPONIN-I HIGH SENSITIVE (12/31/2022 8:53 PM CDT) Only the most recent of4 resultswithin the time period is included. [facility] Troponin I High Sensitive 4 <=35 ng/L 12/31/2022 9:36 PM CDT [facility] Blood BLOOD SPECIMEN / Unknown Venipuncture / Unknown 12/31/2022 8:53 PM CDT 12/31/2022 9:01 PM CDT Ck Small MD LAB - CHEMISTRY ORDERABLES [facility] [address] [place] [address], [facility] [phone] * (ABNORMAL) RBC MORPHOLOGY (12/16/2022 3:49 AM CDT) [facility] Platelet Estimate Decreased(A) Adequate 12/16/2022 5:20 AM CDT [facility] Anisocytosis Occasional(A ) None 12/16/2022 5:20 AM CDT [facility] Ovalocytes Occasional(A ) None 12/16/2022 5:20 AM CDT [facility] Luanne Cells 2+(A) None 12/16/2022 5:20 AM CDT [facility] Comment Platelet Platelet clumpled on the smear but appear decreased. 12/16/2022 5:20 AM CDT [facility] Blood BLOOD SPECIMEN / Unknown Lab Venipuncture / Unknown 12/16/2022 3:49 AM CDT 12/16/2022 4:04 AM CDT Neville Hewitt III, MD LAB - HEMATOLOGY ORDERABLES [facility] [address] [place] [phone], [facility] [phone] * GASTROSTOMY TUBE, CHANGE / REPOSITION (12/10/2022 1:11 PM CDT) Narrative [facility] - 12/10/2022 1:11 PM CDT Marcella Flores DO 12/10/2022 1:17 PM PEG tube exchange: -Witnessed phone consent [...] for all portions of the procedure. Marcella Floers DO Gastroenterology & Hepatology Fellow Division of Gastroenterology and Hepatology [facility] Dina Pritchard DO GI PROCEDURE ORDERAB LES [facility] * NM GASTRIC EMPTYING (12/07/2022 3:51 PM CDT) Anatomical Region Laterality Modality Abdomen Nuclear Medicine 12/07/2022 2:16 PM CDT Impressions 12/07/2022 4:40 PM CDT Impression: Abnormal delayed gastric emptying with T 1/2 of >120 minutes. Of note, standardized normal values are not established for liquid gastric emptying and may vary per institution protocol. > Dictated by Concha Turner MD (Esol Teacher) 12/07/2022 2:16 PM Sarah Thomason DO have personally reviewed and interpreted this examination/study. > Interpreting Provider: Sarah Mason DO on 12/07/2022 4:40 PM Narrative 12/07/2022 4:40 PM CDT PROCEDURE: NM GASTRIC EMPTYING DATE/TIME OF EXAM: [...] alanis time points after ingestion was: 97.0% @ 30 minutes 97.0% @ 60 minutes 96.0% @ 90 minutes Procedure Note Sarah Mason DO - 12/07/2022 PROCEDURE: NM GASTRIC EMPTYING DATE/TIME OF EXAM: 12/07/2022 2:25 PM CLINICAL INFORMATION: None relevant/not provided if blank. Indication: Z93.1: PEG (percutaneous endoscopic gastrostomy) status ([facility]) Procedure: Gastric Emptying Study History: 62-year-old male [...] protocol. > Dictated by Concha Turner MD (Esol Teacher) 12/07/2022 2:16PM Sarah Thomason DO have personally reviewed and interpreted this examination/study. > Interpreting Provider: Sarah Mason DO on 12/07/2022 4:40 PM Ilir Mckenzie MD NM ORDERABLES * TRANSFUSE RED BLOOD CELL LEUKOREDUCED UNIT(S) (12/01/2022 2:23 AM CDT) Ilir Mckenzie MD NURSING - BLOOD PROD TRANSFUSION * PREPARE (CROSSMATCH) RBC UNIT(S), 1 Units (11/30/2022 10:51 PM CDT) Unit Description AS1 LR PRBC IRR [facility] Unit ABO O [facility] Unit Rh POS [facility] Product Number [id number] [facility] Unit Donor # [id number] [facility] Unit Status transfused [facility] Product Code [id number] [facility] Blood Type Barcode 5100 [facility] Expiration Date [id number] S BLOOD BANK LAB Blood Bank BLOOD SPECIMEN / Unknown 11/30/2022 5:03 PM CDT Ilir Mckenzie MD LAB - BLOOD BANK ORD ERABLES [facility] [address] [place] [address], [facility] [phone] * VAS BILATERAL VENOUS DUPLEX LE (11/29/2022 11:46 AM CDT) Anatomical Region Laterality Modality Lower Extremity Intravascular Ul trasound 11/29/2022 11:1 3 AM CDT Narrative Procedure Note Kaylee Wills MD - 11/29/2022 Ramya Witt MD VASCULAR LAB OR DERABLES * (ABNORMAL) ECHO COMPLETE (11/29/2022 9:56 AM CDT) BSA 1.8625644 m2 [facility] CV FUJ I PACS LV [...] LV EDV BP 66.37 mL [facility] CV [facility] I PACS LV ESV A4C 37.448 22 - 78 mL [facility] CV FUJI PACS LV EDV index BP 35.8 34 - 74 mL/m2 [facility] CV FUJI PACS LV EDV A2C 62.641 59 - 175 mL [facility] CV FUJI PACS LV EDV A4C 70.58 mL [facility] CV FU PACS LV ESV 2D 57.656 21 - 61 mL [facility] CV FUJI PACS LV EDV 2D 91.494 62 - 150 mL [facility] CV FUJI PACS LVOT diam 2.0 cm [facility] CV [facility] I PACS LVOT area 3.14 cm2 [facility] [...] 63.148 cm/s [facility] CV FUJ I PACS [id number] 6.722 cm [facility] CV FUJ I PACS [id number] 6.885 cm [facility] CV FUJ I PACS LV stroke vol BP 29.908 mL [facility] CV FUJI PACS LVIDs index 1.99 1.3 - 2.1 cm/m2 [facility] CV FUJI PACS LV LVIDd index 2.41 2.2 - 3.0 cm/m2 [facility] CV FUJI PACS Anatomical Region Laterality Modality Ultrasound Narrative 11/29/2022 10:43 AM CDT Study quality was poor Left Ventricle: Left ventricle size is normal. Mildly increased wall thickness. Low normal systolic function with a visually estimated EF of 50 - 55%. Unable to assess wall motion. Grade I diastolic dysfunction with normal left atrial pressure. Right Ventricle: Right ventricle size is normal. Low normal systolic function. Tricuspid Valve: Trace regurgitation. The pulmonary artery systolic pressure is normal. No significant valvular abnormalities Pericardium: No pericardial effusion. Left Ventricle Left ventricle [...] Procedure Note Raciel Borrero MD - 11/29/2022 Study quality was poor Left Ventricle: Left ventricle size is normal. Mildly increased wallthickness. Low normal systolic function with a visually estimated EF of 50- 55%. Unable to assess wall motion. Grade I diastolic dysfunction withnormal left atrial pressure. Right Ventricle: Right ventricle size is normal. Low normal systolicfunction. Tricuspid Valve: Trace regurgitation. The pulmonary artery systolicpressure is normal. No significant valvular abnormalities Pericardium: No pericardial effusion. Neville Hewitt III, MD ECHO CUPID * (ABNORMAL) METANEPHRINES URINE FRACTIONATED (11/29/2022 8:31 AM CDT) Metanephrine 24 Hour Urine 181 55 - 320 ug/d 12/03/2022 6:56 AM CDT [employer] ([facility]) Collection Time Hours 24 hr 12/03/2022 6:56 AM [facility]) Comment: Per 24h calculations are provided to aid interpretation for collections with a duration of 24 hours and an average daily urine volume. For specimens with notable deviations in collection time or volume, ratios of analytes to a corresponding urine creatinine concentration may assist in result interpretation. Volume 24 Hour Urine 1250 mL 12/03/2022 6:56 AM T [employer] ([facility]) Metanephrine Urine 145 ug/L 2022 6:56 AM [email or web address] ([facility]) Normetanephrine Urine 1362 ug/L 12/03/2022 6:56 AM T [email or web address] ([facility]) Metanephrine Urine Ratio to GIS ENGINEER 179 0 - 300 ug/g GIS ENGINEER 12/03/2022 6:56 AM [facility]) Normetanephrine 24 Hour Urine 1702(H) 114 - 865 ug/d 12/03/2022 6:56 AM [facility] [employer] [facility]) Normetanephrine ug/g GIS ENGINEER 1681(H) 0 - 400 ug/g GIS ENGINEER 12/03/2022 6:56 AM [facility] ([facility]) Interpretation Metanephrine Urine See Note 12/03/2022 6:56 AM [facility] ([facility]) Comment: TEST INFORMATION: Metanephrines Fractionated, Urine Smaller [...] reference intervals for this test in the [facility] Test Directory ([employer]). This test was developed and its performance characteristics determined by [employer]. It has not been cleared or approved by the [place] Food and Drug Administration. This test was performed in a CLIA certified laboratory and is intended for clinical purposes. Creatinine Urine 81 mg/dL 12/04/19 6:56 AM [facility]T [facility] ([facility]) Creatinine 24 Hour Urine 1012 800 - 2100 mg/d 12/03/2022 6:56 AM [facility] ([facility]) Comment: Performed by [employer], [address] [place] [address] [email or web address], Power Milian MD, PHD, Lab. Director Urine URINE SPECIMEN COLLECTION, 24 HOURS / Unknown Timed Urine Volume Measurement / Unknown 11/29/2022 8:31 AM CDT 11/29/2022 9:31 AM CDT Ramya Witt MD LAB - URINE STEFANI MATHEUS ORDERABLES [employer] [facility]) [address] [place] [address], [facility] * CT ANGIO CHEST PULM [...] > Dictated by Leonardo Harris MD (residential driver). IAshwin MD have personally reviewed and interpreted this examination/study. > Interpreting Provider: Ashwin Lopez MD on 11/27/2022 5:49 PM Narrative 11/27/2022 5:49 PM CDT PROCEDURE: CT ANGIO CHEST PULM EMBOLISM, DATE/TIME OF EXAM: 11/27/2022 2:33 PM, LOCATION [facility] INDICATION: R00.0: Sinus tachycardia ADDITIONAL CLINICAL INFORMATION: [...] EMBOLISM, DATE/TIME OF EXAM: 32:33 PM, LOCATION [facility] INDICATION: R00.0: Sinus tachycardia ADDITIONAL CLINICAL INFORMATION: [...] > Dictated by Leonardo Harris MD (residential driver). IAshwin MD have personally reviewed and interpreted this examination/study. > Interpreting Provider: Ashwin Lopez MD on 11/27/2022 5:49 PM Ramya Witt MD CT ORDERABLES * PATHOLOGY TISSUE (11/26/2022 12:26 PM CDT) Only the most recent of3 resultswithin the time period is included. Case Report Surgical Pathology Report Case: [id number] Authorizing Provider: Alden Hurtado MD Collected: 11/26/2022 12:26 PM Ordering Location: [facility] 8S ACUTE Received: 11/26/2022 03:05 PM Pathologist: Naa Meza MD Specimen: Nasal Contents, right nasal polyps 12/01/2022 9:[address] [facility] Final Diagnosis Nasal contents, right polyp, excision (A): - Benign respiratory mucosa with mild acute and chronic inflammation 12/01/2022 9:[address] [facility] Microscopic Description and Comment Sections demonstrate bone and polypoid fragments of sinonasal mucosa with lymphocytes, plasma cells and neutrophils. No eosinophils are appreciated. 12/01/2022 9:19 AM [facility] Clinical History The patient is a 62-year-old man with a history of dementia, seizures, chronic aspiration and Zenker's diverticulum status post diverticulectomy, chronic respiratory failure requiring tracheostomy who presented with blood in his trachea and was found to have epistaxis from a antrochoanal polyp. Operative procedure: Right maxillary antrostomy with polypectomy, and right anterior ethmoidectomy 12/01/2022 9:19 AM [facility] Gross Description The requisition and specimen(s) are identified with the patient's name Bi Tabor. Received in formalin, specimen A , are multiple marie, focally hemorrhagic, irregular tissue, cartilage, and bone fragments aggregating to 2.3 x 2.2 x 0.3 cm. Filtered through a biopsy bag and submitted in toto in A1 following decalcification./MF 12/01/2022 9:19 AM [facility] Pathologist Location at [facility] 12/01/2022 9:19 AM [facility] Disclaimer The performance characteristics of all immunohistochemical and indirect immunofluorescence stains (if any) cited in this report were determined by the Histopathology Laboratory of [facility]. Some of these tests were developed [...] the attending (teaching) pathologist. 12/01/2022 9:19 AM [facility] Embedded Images 12/01/2022 9:19 AM [facility] Biopsy, Excision NASAL CONTENTS / Unknown 11/26/2022 12:26 PM CDT 11/26/2022 3:05 PM CDT Comment:Pre-op diagnosis: Polyp of right nasal cavity [J33.0] Alden Hurtado MD LAB - PATHOLOGY/CYTO LOGY ORDERABLES [facility] [address] [place] [address], [facility] [phone] * CT SINUS WWO CONTRAST (11/25/2022 6:36 [...] > Dictated by Christian Yañez DO (residential driver). I, Jason Sanchez MD have personally [...] > Dictated by Christian Yañez DO (residential driver). I, Jason Sanchez MD have personally [...] Dictated by Usman Arce MD, MD (residential driver). Ashwin Thomason MD have personally reviewed and interpreted this examination/study. > Interpreting Provider: Ashwin Lopez MD on 11/25/2022 11:20 AM Narrative 11/25/2022 11:20 AM CDT PROCEDURE: CT CHEST W CONTRAST, DATE/TIME OF EXAM: 11/25/2022 6:37 AM, LOCATION [facility] INDICATION: R04.2: Hemoptysis ADDITIONAL CLINICAL INFORMATION: Ordering [...] DATE/TIME OF EXAM: 11/25/2022 6:37 AM, LOCATION [facility] INDICATION: R04.2: Hemoptysis ADDITIONAL CLINICAL INFORMATION: Ordering [...] Dictated by Usman Arce MD, MD (residential driver). IAshwin MD have personally reviewed and interpreted this examination/study. > Interpreting Provider: Ashwin Lopez MD on 11/25/2022 11:20 AM Arthur Marinelli MD CT ORDERABLES * (ABNORMAL) VALPROIC ACID FREE+TOTAL PANEL (10/30/2022 5:46 AM CDT) Only the most recent of4 resultswithin the time period is included. Valproic Acid % Free 21(H) 5 - 18 % 11/06/2022 12:30 PM CDT [employer] ([facility]) Comment: INTERPRETIVE INFORMATION: VPA-percent Free Valproic Acid, [...] include headache, somnolence and dizziness. Performed By: [facility] [employer] [address] [place] [address] Billet Recorder: Power Milian MD, PhD Valproic Acid Free 16 7 - 23 ug/mL 11/06/2022 12:30 PM CDT [facility] ([facility]) Valproic Acid Total 76 50 - 125 ug/mL 11/06/2022 12:30 PM CDT [facility]) Blood BLOOD SPECIMEN / Unknown Lab Venipuncture / Unknown 10/30/2022 5:46 AM CDT 10/30/2022 6:29 AM CDT Neha Palomino MD LAB - THERAPEUTIC DR DIAZ MONITORING ORDERABLES [facility]) [address] [place] [address], [facility] * SARS-COV-2 (COVID-19) RAPID (10/21/2022 5:37 PM CDT) Only the most recent of2 resultswithin the time period is included. COVID-19 PCR Not detected Not detected 10/22/19 6:20 PM CDT [facility] Microbiology SPECIMEN FROM NASOPHARYNGEAL STRUCTURE / Unknown Collection / Unknown 10/21/2022 5:37 PM CDT 10/21/2022 5:44 PM CDT Narrative [facility] - 10/21/2022 6:20 PM CDT [facility] Cepheid [...] - MICROBIO LOGY ORDERABLES Performing Organization Address City/[facility]/ZIP Co de Phone Number [address] [address], [facility] [phone] * HEPATITIS C AB SCREEN RFLX NAAT QUANT (09/01/2022 2:05 AM CDT) Only the most recent of3 resultswithin the time period is included. Pathologist [facility] Hepatitis C Antibody Non-react phan Non-reac tive 09/01/2022 3:09 AM CDT [facility] Comment:Hepatitis C Antibody screen indicates no serologic [...] - CHEMISTRY MARSHAL MEDEROS Performing Organization Address [facility]/ZIP Co de Phone Number [address] [address], [facility] [phone] * HIV-1 HIV-2 ANTIBODY + HIV P24 AG PANEL (09/01/2022 2:05 AM CDT) Pathologist [facility] HIV Antigen/Antibod y 1 & 2 Non-reacti ve Non-react phan 09/01/2022 3:09 AM CDT [facility] Comment:No Laboratory eviden ce of HIV infection. Blood BLOOD SPECIMEN / Unknown Venipuncture / Unknown 09/01/2022 2:05 AM CDT 09/01/2022 2:15 AM CDT Artemio Abarca MD LAB - CHEMISTRY MARSHAL MEDEROS [facility] Organization Address City/State/ZIP Co de Phone Number [facility] [address] [place] [address], [facility] [phone] * ECHO COMPLETE (08/30/2022 4:19 PM CDT) [...] 4.4 <=5.6 % 08/29/2022 11:42 AM CDT [facility] Estimated Average Glucose 80 mg/dL 08/29/2022 11:42 AM CDT [facility] Comment: HbA1c Interpretation: Normal : < 5.7% Pre-diabetes: 5.7-6.4% Diabetes: Equal to or greater than 6.5% Test results diagnostic of diabetes should be repeated for confirmation. Treatment target values recommended by ADA and other clinical organizations should be used to evaluate metabolic control in patients. Reference: [place] [employer], Standards of Care in Diabetes -2020 In patients 70 years and older consider HbA1c target range of 7.0-7.5% (Reference: Lukas Matamoros et al. JAMDA. 2012) The Sebia assay for the measurement of HbA1c is a National Glycohemoglobin Standardization Program (NGSP) certified method. Blood BLOOD SPECIMEN / Unknown Venipuncture / Unknown 08/29/2022 5:37 AM CDT 08/29/2022 5:52 AM CDT Hawk Salmon PRICING DIRECTOR-TURBINE MEASUREMENTS ENGINEER LAB - CHEMISTRY OR DERABLES [facility] [address] [address], [facility] [phone] * XR ABDOMEN KUB PORTABLE (08/28/2022 7:12 PM CDT) Only the most recent of8 resultswithin the time period is included. Anatomical Region Laterality Modality Abdomen Radiographic Adan ging 08/29/2022 6:13 AM CDT Narrative 08/29/2022 12:30 PM CDT PROCEDURE: XR ABDOMEN KUB PORTABLE, DATE/TIME OF EXAM: 08/28/2022 7:12 PM, LOCATION [facility] INDICATION: Z86.73: History of stroke E46: Protein-calorie malnutrition, unspecified severity (CMS/HCC) ADDITIONAL CLINICAL INFORMATION: Ordering Provider Reason For Exam: confirm G tube COMPARISON: CT chest abdomen pelvis from 06/28/2022. FINDINGS/IMPRESSION: A G-tube is seen in the mid abdomen. Large volume right pleural effusion with associated atelectasis. Nonobstructive bowel gas pattern. Report dictated by Nash Arreola MD (residential driver). Shane Thomason DO have personally reviewed and interpreted this examination/study. > Interpreting Provider: Shane Mckenzie DO on 08/29/2022 12:30 PM Procedure Note Shane Mckenzie DO - 08/29/2022 PROCEDURE: XR ABDOMEN KUB PORTABLE, DATE/TIME OF EXAM: 08/28/2022 7:12PM, LOCATION [facility] INDICATION: Z86.73: History of stroke E46: Protein-calorie malnutrition, unspecified severity (CMS/HCC) ADDITIONAL CLINICAL INFORMATION: Ordering Provider Reason For Exam: confirm G tube COMPARISON: CT chest abdomen pelvis from 06/28/2022. FINDINGS/IMPRESSION: A G-tube is seen in the mid abdomen. Large volume right pleural effusion with associated atelectasis. Nonobstructive bowel gas pattern. Report dictated by Nash Arreola MD (residential driver). Shane Thomason DO have personally reviewed and [...] the left lower lobe. Report dictated by Flaivo Stover MD (residential driver). IBebo MD have personally reviewed and interpreted [...] mild compressive atelectasis in the left side. There are ground glass opacities in the bilateral [...] Report dictated by Flavio Stover MD (residential driver). I, Bebo Kuo MD have personally reviewed and interpreted this examination/study. > Interpreting Provider: Bebo Kuo MD on 33:24 PM [address] Butler MD [address] ORDERABLES * ARTERIAL LINE PERFORMABLE (07/15/2022 9:55 AM [employer]) Narrative Nima Campos II, DO - 07/15/2022 9:55 AM [employer] Nima Campos II, DO 07/15/2022 11:16 AM Arterial Line Placement Procedure Note Patient Location: [place]. Procedure: Arterial Line ([id number]). Procedure Section Indications: blood sampling needed and [...] CULTURE BRONCHIAL WASHING+GRAM STAIN (07/05/2022 10:31 PM [employer]) Culture No growth JELLY 07/07/2022 3:52 PM [employer] [facility] Gram Stain Rare Polymorphonuclear cells 07/07/2022 3:52 PM [employer]IC [employer]ES [facility] Gram Stain Rare Squamous epithelial cells 07/07/2022 3:52 PM [employer] [facility] Gram Stain No organisms seen 023 3:52 PM [employer] [facility] Microbiology SPECIMEN FROM LUNG OBTAINED BY BRONCHIAL WASHING PROCEDURE / Unknown Collection / Unknown 07/05/2022 10:31 PM [employer] 07/05/2022 10:50 PM [employer] Ramya Witt MD LAB - MICROBIOL OGY ORDERABLES [facility] [address] [place] [address], [facility] [phone] * VANCOMYCIN LEVEL RANDOM (07/04/2022 1:45 AM [employer]) Only the most recent of3 resultswithin the time period is included. Vancomycin Random 22.0 Therapeutic Ranges not established for random specimens ug/mL 07/04/2022 2:20 AM [facility] Blood BLOOD SPECIMEN / Unknown Venipuncture / Unknown 07/04/2022 1:45 AM [employer] 07/04/2022 1:52 AM [employer] Narrative [facility] - 07/04/2022 2:20 AM [employer] See institution protocol. Artur Mcgraw MD LAB - CHEMISTRY ORD ERABLES Performing Organization Address City/[facility]/ZIP Co de Phone Number [facility] [address] [place] [address], [place] [phone] * (ABNORMAL) URINALYSIS W/MICROSCOPIC NO CULTURE (07/02/2022 11:37 AM [employer]) Only the most recent of7 resultswithin the time period is included. Color UA Yellow Straw, Yellow 07/02/2022 11:56 AM [facility] Clarity UA Clear Clear 07/02/2022 11:56 AM [facility] Specific [place] UA 1.006 1.005 - 1.030 07/02/2022 11:56 [...] Yeast Budding UA Few(A) None /HPF 07/02/19 23 11:56 AM [facility] Urine URINE SPECIMEN OBTAINED BY CLEAN CATCH PROCEDURE / Unknown Collection / Unknown 07/02/2022 11:37 AM [employer] 07/02/2022 11:44 AM [facility] - 07/02/2022 11:56 AM [employer] Artur Mcgraw MD LAB - URINALYSIS OR DERABLES Performing Organization Address [facility]/State/[facility] de Phone Number [facility] [address] [place] [phone], [facility] [phone] * SODIUM URINE RANDOM (07/02/2022 11:37 AM [employer]) Only the most recent of2 resultswithin the time period is included. Sodium Urine 40 Not Established mmol/L 07/02/2022 12:07 PM [facility] Urine URINE SPECIMEN OBTAINED BY CLEAN CATCH PROCEDURE / Unknown Collection / Unknown 07/02/2022 11:37 AM [employer] 07/02/2022 11:44 AM [employer] Artur Mcgraw MD LAB - URINE ELECTRIC MOTOR REBUILDER RY ORDERABLES Performing Organization Address City/[facility]/ZIP Co de Phone Number [address] [address], [place] [phone] * CREATININE URINE RANDOM (07/02/2022 11:37 AM [employer]) Only the most recent of2 resultswithin the time period is included. Creatinine Urine 26 Not Established mg/dL 07/02/2022 12:07 PM [employer] [facility] Urine URINE SPECIMEN OBTAINED BY CLEAN CATCH PROCEDURE / Unknown Collection / Unknown 07/02/2022 11:37 AM [employer] 07/02/2022 11:44 AM [employer] Artur Mcgraw MD LAB - URINE ELECTRIC MOTOR REBUILDER RY ORDERABLES Performing Organization Address [facility] Co de Phone Number [address] [address], [facility] [phone] * US PELVIS LIMITED (07/01/2022 3:00 PM [employer]) Anatomical Region Laterality Modality Pelvis Ultrasound 07/01/2022 3:19 PM [employer] Narrative 07/02/2022 8:36 AM [employer] PROCEDURE: US PELVIS LIMITED, DATE/TIME OF EXAM: 07/01/2022 2:23 PM, LOCATION [facility] INDICATION: Z86.73: History of CVA (cerebrovascular accident) ADDITIONAL CLINICAL INFORMATION: Ordering Provider Reason For Exam: left thigh rim enhancing lesion - rule out [...] Report dictated by Ashu Welch M.D. (residential driver) Rachel Thomason MD have personally reviewed and interpreted this examination/study. > Interpreting Provider: Rachel Phillips MD on 07/02/2022 8:36 AM Procedure Note Rachel Phillips MD - 07/02/2022 PROCEDURE: US PELVIS LIMITED, DATE/TIME OF EXAM: 07/01/2022 2:23 PM, LOCATION [facility] INDICATION: Z86.73: History of CVA (cerebrovascular accident) [...] Report dictated by Ashu Welch M.D. (residential driver) Rachel Thomason MD have personally reviewed and interpreted this examination/study. > Interpreting Provider: Rachel Phillips MD on 07/02/2022 8:36 AM Artur Mcgraw MD US ORDERABLES * CULTURE BLOOD FUNGUS (06/30/2022 8:45 PM [employer]) Culture No fungus isolated JELLY 08/09/2022 2:06 PM CDT [facility] Blood PERIPHERAL BLOOD / Unknown Lab Venipuncture / Unknown 06/30/2022 8:45 PM [employer] 06/30/2022 9:20 PM [employer] Artur Mcgraw MD LAB - MICROBIOLOGY ORDERABLES [facility] [address] [place], [place] [address], [facility] [phone] * RESPIRATORY PANEL WITH SARS-COV-2 BY PCR ([facility]) (06/30/2022 7:52 PM [employer]) Adenovirus PCR Not detected Not detected 07/01/2022 12:14 AM [employer]ES [facility] Coronavirus 229E PCR Not detected Not detected 07/01/2022 12:14 AM [employer] [facility] Coronavirus HKU1 PCR Not detected Not detected 07/01/2022 12:14 AM [employer] [facility] Coronavirus NL63 PCR Not detected Not detected 07/01/2022 12:14 AM [employer] [facility] Coronavirus OC43 PCR Not detected Not detected 07/01/2022 12:14 AM [employer] [facility] COVID-19 PCR Not detected Not detected 07/01/2022 12:14 AM [employer] [facility] Human Metapneumovirus PCR Not detected Not detected 07/01/2022 12:14 AM [employer] [facility] Human Rhinovirus/Enterov irus PCR Not detected Not detected 07/01/2022 12:14 AM [employer] [facility] Influenza A PCR Not detected Not detected 07/01/2022 12:14 AM [employer] [facility] Influenza B PCR Not detected Not detected 07/01/2022 12:14 AM [employer] [facility] Parainfluenza Virus 1 PCR Not detected Not detected 07/01/2022 12:14 AM [employer] [facility] Parainfluenza Virus 2 PCR Not detected Not detected 07/01/2022 12:14 AM [employer] [facility] Parainfluenza Virus 3 PCR Not detected Not detected 07/01/2022 12:14 AM [employer] [facility] Parainfluenza Virus 4 PCR Not detected Not detected 07/01/2022 12:14 AM [employer] [facility] Respiratory Syncytial Virus PCR Not detected Not detected 07/01/2022 12:14 AM [employer] [facility] Bordetella parapertussis PCR Not detected Not detected 07/01/2022 12:14 AM [employer] [facility] Bordetella pertussis PCR Not detected Not detected 07/01/2022 12:14 AM [employer] [facility] Chlamydia pneumoniae PCR Not detected Not detected 07/01/2022 12:14 AM [employer] [facility] Mycoplasma pneumoniae PCR Not detected Not detected 07/01/2022 12:14 AM [employer] [facility] Microbiology SPECIMEN FROM NASOPHARYNGEAL STRUCTURE / Unknown Collection / Unknown 06/30/2022 7:52 PM [employer] 06/30/2022 7:55 PM [employer] SALES Narrative [facility] - 07/01/2022 12:14 AM [employer] This nucleic amplification assay has received FDA authorization via the [employer]. Artur Mcgraw MD LAB - MICROBIOLOGY ORDERABLES [facility] [address] [place] [address], [facility] [phone] * VAS RIGHT VENOUS DUPLEX UE (06/30/2022 3:22 PM [employer]) Anatomical Region Laterality Modality Upper Extremity Intravascular Ul trasound 06/30/2022 2:44 PM [employer] Narrative Procedure Note Shane Doyle MD - 06/30/2022 Artur Mcgraw MD VASCULAR LAB ORDERA BLES * (ABNORMAL) HEPATIC FUNCTION PANEL (06/30/2022 10:39 AM [employer]) Only the most recent of4 resultswithin the time period is included. Protein Total 6.2 6.0 - 8.3 g/dL 023 1:57 PM [facility] Albumin 2.2(L) 3.4 - 5.0 g/dL 06/30/2022 1:57 PM [facility] Bilirubin Total 0.3 0.2 - 1.2 mg/dL 05/2022 1:57 PM [facility] Bilirubin Conjugated 0.2 0.1 - 0.5 mg/dL 06/30/2022 1:57 PM [facility] Bilirubin Unconjugated 0.1 Unconjugated Bilirubin is a calculated value: Reference ranges have not been established. mg/dL 06/30/2022 1:57 PM [facility] Alkaline Phosphatase 65 40 - 150 U/L 06/30/2022 1:57 PM [facility] ALT 5 5 - 55 U/L 06/30/2022 1:57 PM COSMETIC SALES [facility] H[facility]PITAL AST 13 5 - 34 U/L 06/30/2022 1:57 PM COSMETIC SALES [facility] Albumin/Globulin Ratio 0.6(L) 1.1 - 2.3 06/30/2022 1:57 PM COSMETIC SALES [facility] Blood BLOOD SPECIMEN / Unknown Lab Venipuncture / Unknown 06/30/2022 10:39 AM [employer] 06/30/2022 10:45 AM [employer] Artur Mcgraw MD LAB - CHEMISTRY ORD ERABLES [facility] [address] [place] [address], [facility] [phone] * (ABNORMAL) CULTURE MRSA (06/29/2022 12:42 PM [employer]) Culture Growth of Staphylococcus aureus methicillin-resist ant (MRSA)(A) 06/30/2022 9:39 PM [facility] Microbiology SPECIMEN FROM NASAL FOSSAE / Unknown Collection / Unknown 06/29/2022 12:42 PM [employer] 06/29/2022 12:50 PM [employer] Narrative [facility] - 06/30/2022 9:39 PM [employer] Methicillin-resistant Staphylococci (MRSA) are resistant to all currently available beta-lactam antibiotics with the exception of the newer cephalosporins with anti-MRSA activity. Contact precautions required. Artur Mcgraw MD LAB - MICROBIOLOGY ORDERABLES [facility] [address] [place] [address], [facility] [phone] * LEGIONELLA ANTIGEN URINE (06/28/2022 3:48 AM [employer]) Legionella Antigen Urine Negative Negative 06/28/2022 10:05 AM [facility] Urine URINE / Unknown Collection / Unknown 06/28/2022 3:48 AM [employer] 06/28/2022 3:52 AM [employer] Narrative [facility] - 06/28/2022 10:05 AM [employer]ES This assay detects Legionella pneumophila serogroup one (1) antigen. A negative test result does not rule out the possibility of Legionella infection due to other serogroups or species of Legionella. A positive result may indicate a recent or remote infection with serogroup 1. Yasmani Vigil MD LAB - MICROBIOLOGY O RDERABLES [facility] [address] [place] [address], [facility] [phone] * TROPONIN I (06/28/2022 1:41 AM [employer]) Only the most recent of16 resultswithin the time period is included. Troponin I <0.010 <0.032 ng/mL 06/28/2022 2:16 AM COSMETIC SALES [facility] Blood BLOOD SPECIMEN / Unknown Venipuncture / Unknown 06/28/2022 1:41 AM [employer] 06/28/2022 1:46 AM [employer] Arthur Marinelli MD LAB - CHEMISTRY ORD ERABLES Performing Organization Address City/[facility]/ZIP Co de Phone Number [facility] [address] [place] [address], [place] [phone] * CT CHEST PE W ABD PELVIS W CONT (06/28/2022 1:05 AM [employer]) Only the most recent of2 resultswithin the time period is included. Anatomical Region Laterality Modality Chest, Abdomen, Pelvis Computed Tomography 06/28/2022 1:52 AM [employer] Impressions 06/28/2022 8:38 AM [employer] Impression: 1.No evidence of acute pulmonary embolism. [...] > Dictated by Alexandro Kelsey MD (residential driver) Ashwin Thomason MD have personally reviewed and interpreted this examination/study. > Interpreting Provider: Ashwin Lopez MD on 06/28/2022 8:38 AM Narrative 06/28/2022 8:38 AM [employer] PROCEDURE: CT CHEST PE W ABD PELVIS W CONT, DATE/TIME OF EXAM: 06/28/2022 1:26 AM, LOCATION [facility] INDICATION: R09.02: Hypoxia ADDITIONAL CLINICAL INFORMATION: Ordering [...] DATE/TIME OF EXAM:06/28/2022 1:26 AM, LOCATION [facility] INDICATION: R09.02: Hypoxia ADDITIONAL CLINICAL INFORMATION: Ordering [...] > Dictated by Alexandro Kelsey MD (residential driver) IAshwin MD have personally reviewed and interpreted this examination/study. > Interpreting Provider: Ashwin Lopez MD on 06/28/2022 8:38 AM Arthur Marinelli MD CT ORDERABLES * SARS-COV-2 (COVID-19) FLU A/B RSV PCR RAPID (06/27/2022 10:23 PM [employer]) Only the most recent of3 resultswithin the [...] Unknown Collection / Unknown 06/27/2022 10:23 PM [employer] 06/27/2022 10:28 PM [facility] - 06/27/2022 11:10 PM [employer]IC SALES This nucleic acid amplification assay has been authorized by the Food and Drug administration (FDA) under an Emergency Use Authorization (EUA). [...] Arthur Marinelli MD LAB - MICROBIOLOGY ORDERABLES [address] [address], [facility] [phone] * XR CHEST 2VW (06/01/2022 7:54 PM [employer]) Anatomical Region Laterality Modality Chest Radiographic Adan ging 06/02/2022 1:34 PM [employer] Impressions 06/02/2022 5:09 PM [employer] IMPRESSION: Bilateral lower lobe opacities consistent with aspiration pneumonia. Report dictated by Ashu Welch M.D. (residential driver) IAshwin MD have personally reviewed and interpreted this examination/study. > Interpreting Provider: Ashwin Lopez MD on 06/02/2022 5:09 PM Narrative 06/02/2022 5:09 PM [employer] PROCEDURE: XR CHEST 2VW, DATE/TIME OF EXAM: 06/01/2022 7:54 PM, LOCATION [facility] INDICATION: R91.8: Pulmonary infiltrate ADDITIONAL CLINICAL INFORMATION: [...] DATE/TIME OF EXAM: 06/01/2022 7:54 PM, LOCATION [facility] INDICATION: R91.8: Pulmonary infiltrate ADDITIONAL CLINICAL INFORMATION: [...] Report dictated by Ashu Welch M.D. 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 Report dictated by Scar Oliveira MD (residential driver). Rachel Thomason MD have personally reviewed and interpreted this examination/study. > Interpreting Provider: Rachel Phillips MD on 05/14/2022 4:48 PM Narrative 05/14/2022 4:48 PM [employer] PROCEDURE: FL ESOPHAGRAM, DATE/TIME OF EXAM: 05/14/2022 2:23 PM, LOCATION [facility] INDICATION: R13.12: Oropharyngeal dysphagia ADDITIONAL CLINICAL INFORMATION: [...] DATE/TIME OF EXAM: 05/14/2022 2:23 PM,LOCATION [facility] INDICATION: R13.12: Oropharyngeal dysphagia ADDITIONAL CLINICAL INFORMATION: [...] Report dictated by Scar Oliveira MD (residential driver). I, Rachel Phillips MD have personally reviewed and interpreted this examination/study. > Interpreting Provider: Rachel Phillips MD on 05/14/2022 4:48 PM Baldev Carl MD FLUOROSCOPY ORDERABL ES * ETT LINE PERFORMABLE (03/25/2022 4:31 PM CDT) Narrative Yelena Grier APRN-CRNA - 03/25/2022 4:31 PM CDT Yelena Grier APRN-CRNA 03/25/2022 4:52 PM Endotracheal Tube Placement: Intubation Event Date/Time: 03/25/2022 4:31 PM Procedure: intubation ([id number]). Procedure Section: Sedation: under general anesthesia. Indications [...] Department Report _ Patient Name: Bi Tabor Procedure Date: 03/25/2022 4:19 PM Date of : 1960 Classification: Inpatient Gender: Male Ethnicity: Not or Race: Black or _ Providers: Tiffani Castillo MD, Jolynn Ann (Fellow) Referring MD: Procedure: Upper GI endoscopy Indications: Dysphagia Medications: General Anesthesia, Ancef 2 grams IV given during EGD Description of Procedure: Pre-Anesthesia Assessment: - Prior to the procedure, a History and Physical was performed, and patient medications and allergies were reviewed. The patient's tolerance of previous anesthesia was also reviewed. The risks and benefits of the procedure and the sedation options and risks were discussed with the patient. All questions were answered, and informed consent was obtained. Prior Anticoagulants: The patient has taken no previous anticoagulant or antiplatelet agents. ASA Grade Assessment: III - A patient with severe systemic disease. After reviewing the risks and benefits, the patient was deemed in satisfactory condition to undergo the procedure. - Prior Aspirin/ NSAID therapy: The patient has taken no previous aspirin or NSAID medications. After obtaining informed consent, the endoscope was passed under direct vision. Throughout the procedure, the patient's blood pressure, pulse, and oxygen saturations were monitored continuously. The [id number] was introduced through the mouth, and advanced to the second part of duodenum. The upper GI endoscopy was accomplished with ease. The patient tolerated the procedure well. Findings: Esophagogastric landmarks were identified: the Z-line was found at 38 cm, the gastroesophageal junction was found at 38 cm and the site of hiatal narrowing was found at 38 cm from the incisors. Multiple localized erosions with no bleeding and no stigmata of recent bleeding were found in the gastric antrum. Localized mildly erythematous mucosa without active bleeding and with no stigmata of bleeding was found in the first portion of the duodenum. The cardia and gastric fundus were normal on retroflexion. The patient was placed in the supine position for PEG placement. The stomach was insufflated to appose gastric and abdominal head. A site was located in the body of the stomach with excellent transillumination for placement. The abdominal wall was marked and prepped in a sterile manner. The area was anesthetized with 5 mL of 1% lidocaine. The trocar needle was introduced through the abdominal wall and into the stomach under direct endoscopic view. A snare was introduced through the endoscope and opened in the gastric lumen. The guide wire was passed through the trocar and into the open snare. The snare was closed around the guide wire. The endoscope and snare were removed, pulling the wire out through the mouth. A skin incision was made at the site of needle insertion. The externally removable 24 Fr Rojas-Cook gastrostomy tube was lubricated. The G-tube was tied to the guide wire and pulled through the mouth and into the stomach. The trocar needle was removed, and the gastrostomy tube was pulled out from the stomach through the skin. The external bumper was attached to the gastrostomy tube, and the tube was cut to remove the guide wire. The final position of the gastrostomy tube was confirmed by relook endoscopy, and skin marking noted to be 4 cm at the bottom of the external bumper. The final tension and compression of the abdominal wall by the PEG tube and external bumper were checked and revealed that the bumper was loose and lightly touching the skin. The feeding tube was capped, and the tube site cleaned and dressed. Large diverticulum was seen in the oropharynx which made it difficult to intubate the esophagus. Estimated Blood Loss: Estimated blood loss was minimal. Complications: No immediate complications. Impression: - Esophagogastric landmarks identified. - Erosive gastropathy with no bleeding and no stigmata of recent bleeding. - Erythematous duodenopathy. 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 Difficult intubation of esophagus. - An externally removable PEG placement was successfully completed. - No specimens collected. Recommendation: - Return patient to [facility] for ongoing care. - NPO for 4 hours. - No blind NGT or OGT placements due to large diverticulum in o/p. - Continue present medications. PPI daily. - Antibiotics given for PEG today. - Please follow the post-PEG recommendations including: Nutrition consult for formula and volume, external bolster 1 cm from abdominal wall, change dressing once per day, may use PEG today for meds and water and clean site with soap and water daily and dry thoroughly. Attending Participation: I personally performed the entire procedure. Procedure Code(s): --- Professional --- 13046, Esophagogastroduoden oscopy, flexible, transoral; with directed placement of percutaneous gastrostomy tube Diagnosis Code(s): --- Professional --- K31.89, Other diseases of stomach and duodenum R13.10, Dysphagia, unspecified CPT copyright 2019 [employer]. All rights reserved. The codes documented in this report are preliminary and upon dermatologist managing partner review may be revised to meet current compliance requirements. __ Tiffani Castillo MD 03/25/2022 5:11:23 PM Note Initiated On: 03/25/2022 4:19 PM Number of Addenda: [address] PROVATION 03/25/2022 4:19 PM CDT Artur Mcgraw MD GI PROCEDURE ORDERA BLES [facility] PROVATION * ETT LINE PERFORMABLE (03/15/2022 9:57 AM CDT) Narrative Loretta Coronado MD - 03/15/2022 9:57 AM CDT Loretta Coronado MD 03/15/2022 10:28 AM Endotracheal Tube Placement: Patient Location: OR. Intubation Event Date/Time: 03/15/2022 9:57 AM Procedure: intubation ([id number]). Procedure Section: Sedation: under general anesthesia. Indications [...] the procedure Provider #1: Ariela Conde MD. Ariela Conde [...] AM Narrative 03/15/2022 8:42 AM CDT PROCEDURE: MRI FOOT LEFT WWO CONTRAST, DATE/TIME OF EXAM: 03/15/2022 12:57 AM, LOCATION [facility] INDICATION: R78.81: Bacteremia I73.9: PAD (peripheral artery disease) ([facility]) ADDITIONAL CLINICAL INFORMATION: Ordering Provider [...] OF EXAM: 03/15/2022 12:57 AM, LOCATION [facility] INDICATION: R78.81: Bacteremia I73.9: PAD (peripheral artery disease) ([facility]) ADDITIONAL CLINICAL INFORMATION: Ordering Provider [...] CDT Narrative 03/08/2022 4:48 PM CDT PROCEDURE: XR FOOT LEFT 3VW OR MORE, DATE/TIME OF EXAM: 03/08/2022 3:38 PM, LOCATION [facility] INDICATION: R50.9: Fever, unspecified fever cause ADDITIONAL [...] Report dictated by Param Eubanks MD (residential driver). Eron Thomason have personally reviewed and interpreted this examination/study. > Interpreting Provider: Eron Payton on 03/08/2022 4:48 PM Procedure Note Eron Payton MD - 03/08/2022 PROCEDURE: XR FOOT LEFT 3VW OR MORE, DATE/TIME OF EXAM: 23:38 PM, LOCATION [facility] INDICATION: R50.9: Fever, unspecified fever cause ADDITIONAL [...] Report dictated by Param Eubanks MD (residential driver). Eron Thomason have personally reviewed and interpreted this examination/study. 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 I, Bebo Kuo MD have personally reviewed and interpreted this examination/study. 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 Bebo Thomason MD have personally reviewed and interpreted this examination/study. > Interpreting Provider: Bebo Kuo MD on 01/05/2022 2:49PM Sean Altamirano Raymundo DO FLUOROSCOPY ORDERABL ES * CT [...] Dictated by: Ami Clifford MD, PhD (residential driver). Saloni Thomason MD have personally reviewed and [...] anterior and middle cerebral arteries are patent. There is a normal anterior communicating artery. 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 The right V4 segment is patent. The basilar artery is patent without high-grade stenosis. The posterior cerebral arteries are within normal limits. Posterior communicating arteries are [...] Dictated by: Ami Clifford MD, PhD (residential driver). Saloni Thomason MD have personally reviewed and [...] Dictated by: Ami Clifford MD, PhD (residential driver). 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 Moderate cerebralwhite matter hypodensity is compatible [...] Dictated by: Ami Clifford MD, PhD (residential driver). I, Saloni Lemus MD have personally reviewed [...] of5 resultswithin the time period is included. Amphetamines Screen Urine Negative Negative: < 1000 ng/mL 02/25/2021 2:18 PM CDT [facility] Barbiturates Screen Urine Negative Negative: < 200 ng/mL 02/25/2021 2:18 PM CDT [facility] Benzodiazepine Screen Urine Negative Negative: < 200 ng/mL 02/25/2021 2:18 PM CDT [facility] Opiates Urine Negative Negative: < 300 ng/mL 02/25/2021 2:18 PM CDT [facility] Cocaine Metabolites Urine Negative Negative: < 300 ng/mL 02/25/2021 2:18 PM CDT [facility] Phencyclidine Screen Urine Negative Negative: < 25 ng/ml 02/25/2021 2:18 PM CDT [facility] Cannabinoids Screen Urine Negative Negative: <50 ng/mL 02/25/2021 2:18 PM CDT [facility] Methadone Screen Urine Negative Negative: < 300 ng/mL 02/25/2021 2:18 PM CDT [facility] Fentanyl Screen Urine Negative Negative: <1.0 ng/mL 02/25/2021 2:18 PM CDT [facility] Urine URINE / Unknown Collection / Unknown 02/25/2021 1:57 PM CDT 02/25/2021 2:04 PM CDT Narrative [facility] - 02/25/2021 2:18 PM CDT The Urine Toxicology Screening Panel does not screen for Propoxyphene, Meprobamate, Carisoprodol, Trazodone, [id number] medications and/or volatiles (Acetone, Isopropanol, Methanol or Ethylene Glycol). Ethanol, Salicylate, Acetaminophen, Tricyclic Antidepressants and several therapeutic drugs may be individually assayed in serum or plasma specimen. Toxicology testing by the [facility] is an aid to medical diagnosis and treatment of patients. No documented chain of custody was maintained. Results are intended to be used for clinical purposes only. Shane Fajardo MD LAB - URINE CHEMIS TRY ORDERABLES [address] [address], [facility] [phone] * ALCOHOL ETHYL BLOOD (02/25/2021 11:35 AM CDT) Only the most recent of9 resultswithin the time period is included. Ethanol (mg/dL) <10 <10 mg/dL 12:53 PM CDT [facility] Ethanol Calculated (g/dL) <0.010 <0.010 g/dL 02/25/2021 12:53 PM CDT [facility] Blood BLOOD SPECIMEN / Unknown Venipuncture / Unknown 02/25/2021 11:35 AM CDT 02/25/2021 12:12 PM CDT Narrative [facility] - 02/25/2021 12:53 PM CDT Ethanol Interp <10: None Detected. Depression of PHY THERAPIST: >100 mg/dl Potentially Critical: >250 mg/dl Potentially [...] Fajardo MD LAB - CHEMISTRY OR DERABLES [address] [address], [place] [phone] * BLOOD TYPE VERIFICATION (02/25/2021 11:30 AM CDT) ABO Rh O POS 02/25/2021 12:50 PM CDT [facility] Blood Bank BLOOD SPECIMEN / Unknown Lab Venipuncture / Unknown 02/25/2021 11:30 AM CDT 02/25/2021 12:21 PM CDT Provider Unknown LAB - BLOOD BANK ORD ERABLES Performing Organization Address [facility] Co de Phone Number [facility] [address] [place] [phone], [place] [phone] * CREATININE - POCT INTERFACED (02/25/2021 11:25 AM CDT) Creatinine POCT 0.73 0.30 - 1.30 mg/dL 02/25/2021 11:29 AM CDT [facility] eGFR >60 >60 mL/min/1.7 3 m2 02/25/2021 11:29 AM CDT [facility] Blood BLOOD SPECIMEN / Unknown 02/25/2021 11:25 AM CDT 02/25/2021 11:28 AM CDT Shane Fajardo MD LAB - POINT OF CAR E ORDERABLES Performing Organization Address City/[facility]/ZIP Co de Phone Number [address] [address], [place] [phone] * US RETROPERITONEAL COMPLETE (08/20/2020 10:47 AM CDT) Anatomical Region Laterality Modality Abdomen Ultrasound 08/20/2020 10:4 3 AM CDT Impressions 08/20/2020 10:52 AM CDT IMPRESSION: Within the limitations of the study, the kidneys appear grossly unremarkable. Dictated by Yonis Howard MD (residential driver). IDr. NAJMA have personally reviewed and interpreted this examination/study. This report was electronically signed by NAJMA BRITT on 08/20/2020 10:52 AM . Narrative 08/20/2020 10:52 [...] unremarkable. Dictated by Yonis Howard MD (residential driver). Dr. NAJMA Thomason have personally reviewed and [...] VIVIAN ORTIZ on 08/16/2020 1:10 PM . Narrative 08/16/2020 1:10 [...] visualized. Dictated by Brandee Celestin MD (residential driver). I, Dr. CHARLES GARSIA MD have personally reviewed and interpreted this examination/study. This report was electronically signed by CHARLES GARSIA MD on 08/15/2020 1:42 PM . Narrative 08/15/2020 1:42 [...] visualized. Dictated by Brandee Celestin MD (residential driver). I, Dr. CHARLES GARSIA MD have personally reviewed and interpreted this examination/study. This report was electronically signed by CHARLES GARSIA MD on08/15/2020 1:42 PM . Baldev Carl MD DIAGNOSTIC IMAGING O RDERABLES * HEPARIN PLATELET INDUCED ANTIBODY (08/15/2020 9:08 AM CDT) Interpretation Heparin Platelet Antibody Negative Negative 08/15/2020 1:29 PM CDT [facility] Comment:Heparin induced thro mbocytopenia (HIT) is unlikely in the presence of a negative HIT antibody test result by VLADISLAV and low pretest probability for type II HIT (scoring system of [place]). It is suggested to verify positive HIT VLADISLAV antibody test results by HIT Antibody Serotonin Release Assay. HIT VLADISLAV Patient OD 0.142 <0.400 OD 08/15/2020 1:29 PM CDT [facility] Blood BLOOD SPECIMEN / Unknown Lab Venipuncture / Unknown 08/15/2020 9:08 AM CDT 08/15/2020 9:30 AM CDT Baldev Carl MD LAB - CHEMISTRY [facility] Organization Address City/State/ZIP Co de Phone Number [facility] [address] [place] [address], [facility] [phone] * IR ANGIOGRAM LEFT LEG (07/18/2019 3:31 PM [employer]) Anatomical Region Laterality Modality Lower Extremity X-Ray Angiograph y 07/18/2019 3:11 PM [employer] Impressions 07/18/2019 3:15 PM [employer] stenosis impression: IMPRESSION: Successful angioplasty of anterior tibial artery and superficial femoral artery This report was electronically signed by ANNA BAEZA M.D. on 07/18/2019 3:15 PM . Narrative 07/18/2019 3:15 PM [employer] Preprocedure diagnosis ischemic left lower extremity Postprocedure [...] access via Seldinger technique and a 6 Brazilian sheath was placed. A combination of Omni Flush catheter and Glidewire were used to come up and over. Once the catheter was in the superficial femoral artery the system was changed out to a stiff wire. In up and over sheath of 6 Brazilian was then placed. Images of left lower [...] access via Seldinger technique and a 6 Brazilian sheath was placed. A combination of Omni Flush catheter and Glidewire were used to come up and over. Once the catheter was in the superficial femoral artery the system was changed out to a stiff wire. In up and over sheath of 6 Brazilian was then placed. Images of left lower [...] ABDOMEN AORTA W RUNOFF (07/02/2019 3:15 PM [employer] SALES) Anatomical Region Laterality Modality Abdomen, Lower Extremity Compute d Tomography 07/02/2019 3:48 PM [employer] SALES Impressions 07/03/2019 3:43 PM [employer] IMPRESSION: Significant atherosclerotic disease, as described above. Dictated by Marianna Langley MD (residential driver). I, Dr. Ashwin LOPEZ M.D. have personally reviewed and interpreted this examination/study. This report was electronically signed by Ashwin LOPEZ M.D. on 07/03/2019 3:43 PM . Narrative 07/03/2019 3:43 PM [employer] EXAMINATION: Computed tomography (CT) angiography of the [...] above. Dictated by Marianna Langley MD (residential driver). I, Dr. Ashwin LOPEZ M.D. have personally reviewed and interpretedthis examination/study. This report was electronically signed by Ashwin LOPEZ M.D. on 07/03/2019 3:43 PM . Vinicius Maldonado MD CT ORDERABLES * MRI BRAIN WWO CONTRAST (06/16/2019 1:35 PM [employer]) Only the most recent of2 resultswithin the time period is included. Anatomical Region Laterality Modality Head Magnetic Resonan ce 06/18/2019 12:3 3 PM [employer] SALES Impressions 06/18/2019 12:51 PM [employer] SALES IMPRESSION: 1.No evidence of acute intracranial findings. 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 3.Redemonstration of severe right hippocampus volume loss. 4.Additional chronic findings as above. 5.Unchanged enhancing lesion in the right maxillary sinus. 6.Paranasal sinus disease. This report was electronically signed by WOJCIECH ZAMBRANO on 06/18/2019 12:51 PM . Narrative 06/18/2019 12:51 PM [employer]METIC SALES MRI BRAIN WWO CONTRAST DATE: 06/16/2019 1:35 [...] MR ORDERABLES * TSH (05/15/2019 4:52 PM [employer] SALES) Only the most recent of4 resultswithin the time period is included. TSH 1.344 0.350 - 4.940 uIU/mL 05/15/2019 5:34 PM COSMETIC SALES [facility] Blood BLOOD SPECIMEN / Unknown Lab Venipuncture / Unknown 05/15/2019 4:52 PM [employer]IC SALES 05/15/2019 4:57 PM COSMETIC SALES Bipin Becker MD LAB - CHEMISTRY MARSHAL MEDEROS Performing Organization Address City/[facility] [place] [address], [facility] [phone] * T4 FREE (05/15/2019 4:52 PM [employer]ES) Only the most recent of2 resultswithin the time period is included. T4 Free 0.9 0.7 - 1.5 ng/dL 05/15/2019 5:34 PM COSMETIC SALES [facility] Blood BLOOD SPECIMEN / Unknown Lab Venipuncture / Unknown 05/15/2019 4:52 PM [employer]IC SALES 05/15/2019 4:57 PM [employer]METIC SALES Bipin Becker MD LAB - CHEMISTRY MARSHAL MEDEROS Performing Organization Address [facility] Co de Phone Number [address] [phone] * CK + CKMB PANEL (05/15/2019 9:11 AM [employer]IC SALES) Pathologist [facility] CK Total 63 30 - 200 Units/L 05/15/2019 9:42 AM COSMETIC SALES [facility] CK-MB 0.8 0.0 - 6.6 ng/mL 05/15/2019 9:42 AM [facility] Blood BLOOD SPECIMEN / Unknown Lab Venipuncture / Unknown 05/15/2019 9:11 AM [employer] SALES 05/15/2019 9:15 AM [employer]METIC SALES Brian Lawrence MD LAB - CHEMISTRY MARSHAL MEDEROS Performing Organization Address City/[facility]/[place]IP [place] [address], [facility] [phone] * EEG VIDEO MONITORING (05/12/2019 11:59 AM [employer]ES) Narrative Ck Feliciano MD - 05/12/2019 11:59 AM [employer]IC SALES Ck Feliciano MD 05/15/2019 10:57 AM EEG REPORT Patient Name: Bi Tabor EEG#: [id number] Start Time: 22:46 PM 05/09/2019 Stop Time: 11:35 AM 05/12/2019 Clinical History: Bi Tabor is a 59 year old male with seizures. This continuous video EEG monitoring is ordered to evaluate for seizures in the setting of altered mental status. Current medications Current Facility-Administered Medications Medication 0.9% NaCl infusion 0.9% NaCl injection 3 mL And 0.9% NaCl injection 1-10 mL amLODIPine (NORVASC) tablet 5 mg aspirin chew tablet 81 mg atorvastatin (LIPITOR) tablet 20 mg clonazePAM (KlonoPIN) tablet 0.5 mg cyanocobalamin (VITAMIN B-12) tablet 1,[address] (DEPAKOTE) tablet 500 mg Or valproate (DEPACON) 500 mg in 0.9% NaCl 55 mL IVPB folic acid (FOLVITE) tablet 1 mg heparin injection 5,000 Units lacosamide (VIMPAT) 50 mg in 0.9% NaCl 55 mL IVPB levETIRAcetam (KEPPRA) 1,500 in 100 mL IVPB Or levETIRAcetam (KEPPRA) tablet 1,500 mg tamsulosin (FLOMAX) capsule 0.4 mg thiamine (VITAMIN B-1) tablet 100 mg [...] remnant midline BIRDs that later disspitated. There continued to be frequent right central epileptiform [...] by predominantly right central discharges and LPDs. Last electrographic seizure was identified at 09:33 AM on 05/11/2019. Ck Feliciano MD Nacho Sauer MD NEUROLOGY ORDERABLES * (ABNORMAL) VITAMIN D 25-HYDROXY (05/10/2019 8:32 AM COSMETIC SALES) Only the most recent of2 resultswithin the time period is included. Vitamin D, 25 Hydroxy 28.9(L) See comment: ng/mL 05/10/2019 11:15 AM COSMETIC SALES [facility] Comment: The recommendations for 25-Hydroxy Vitamin D clinical decision points are as follows: Deficient: <20.0 ng/mL Insufficient: 20.0 - 29.9 ng/mL Sufficient: > or =30.0 ng/mL If the 25-Hydroxy Vitamin D results are inconsitent with clinical evidence, it is recommended that follow-up testing using a method such as LC/MS/MS be performed to confirm the result. Reference: The Endocrine Society Clinical Practice Guidelines. 2010 Blood BLOOD SPECIMEN / Unknown Lab Venipuncture / Unknown 05/10/2019 8:32 AM COSMETIC SALES 05/10/2019 8:44 AM COSMETIC SALES Devkia Cross MD LAB - CHEMISTRY MARSHAL MEDEROS [facility] Organization Address City/State/ZIP Co de Phone Number [facility] [address] [phone] * PROLACTIN (01/24/2019 2:45 AM CDT) Only the most recent of2 resultswithin the time period is included. Prolactin 5.7 2.1 - 17.7 ng/mL 2019 3:41 AM CDT [facility] [employer] ([facility]) Comment: REFERENCE INTERVAL: Prolactin Access complete set of age- and/or gender-specific reference intervals for this test in the [facility] Test Directory ([email or web address]). Performed by [employer], [address] [place] [id number] [email or web address], Mio Anderson MD, Lab. Director Blood BLOOD SPECIMEN / Unknown 01/24/2019 2:45 AM CDT 01/24/2019 3:03 AM CDT Sean Martinez MD LAB - CHEMISTRY MARSHAL MEDEROS [facility] ([facility]) [address] * (ABNORMAL) PHENYTOIN LEVEL TOTAL (01/24/2019 1:54 AM CDT) Only the most recent of9 resultswithin the time period is included. Phenytoin, total <0.5(L) 10.0 - 20.0 mcg/mL 01/24/2019 2:29 AM CDT [facility] Blood BLOOD SPECIMEN / Unknown Venipuncture / Unknown 01/24/2019 1:54 AM CDT 01/24/2019 2:01 AM CDT Nima Yee MD LAB - CHEMISTRY MARSHAL MEDEROS Performing Organization Address [facility]/ZIP Co de Phone Number [address] [phone] * (ABNORMAL) SODIUM BLOOD (01/15/2019 11:03 AM CDT) Only the most recent of2 resultswithin the time period is included. Sodium 132(L) 136 - 145 mmol/L 01/15/2019 12:22 PM CDT [facility] Blood BLOOD SPECIMEN / Unknown Lab Venipuncture / Unknown 01/15/2019 11:03 AM CDT 01/15/2019 11:48 AM CDT Germain Cardoza MD LAB - CHEMISTRY [place] [address], [place] [phone] * OSMOLALITY URINE (01/14/2019 6:13 AM CDT) [facility] Osmolality Urine 236 50-1,200 mOsm/kg 01/14/2019 5:06 PM CDT [facility] Urine URINE SPECIMEN OBTAINED BY CLEAN CATCH PROCEDURE / Unknown Collection / Unknown 01/14/2019 6:13 AM CDT 01/14/2019 6:13 AM CDT Germain Cardoza MD LAB - URINE CHEMISTR Y ORDERABLES Performing Organization Address City/[facility]/ZIP Co de Phone Number [address] [phone] * (ABNORMAL) CARBAMAZEPINE LEVEL TOTAL (01/14/2019 1:23 AM CDT) [facility] Carbamazepine, trough 1.9(L) 4.0 - 12.0 mcg/mL 01/14/2019 1:45 AM CDT [facility] Blood BLOOD SPECIMEN / Unknown Venipuncture / Unknown 01/14/2019 1:23 AM CDT 01/14/2019 1:23 AM CDT Everett Proctor MD LAB - CHEMISTRY MARSHAL MEDEROS Performing Organization Address City/[facility]/ZIP Co de Phone Number [address] [phone] * OXCARBAZEPINE BLOOD (10/21/2018 12:31 PM CDT) Only the most recent of4 resultswithin the time period is included. [facility] Oxcarbazepine Metabolite None Detected 10 - 35 ug/mL 10/27/2018 11:12 AM CDT [facility] ([facility]) Comment: This test was developed and its performance characteristics determined by [facility]. It has not been cleared or approved by the Food and Drug Administration. Detection Limit = 1 Blood BLOOD SPECIMEN / Unknown Venipuncture / Unknown 10/21/2018 12:31 PM CDT 10/21/2018 12:35 PM CDT Narrative [facility] ([facility]) - 10/27/2018 11:12 AM CDT Performed at: 01 - [address], [place], [place] [id number] Leather Tacker: Terence Ramos MD, Phone: [phone] Sean Martinez MD LAB - CHEMISTRY MARSHAL MEDEROS [facility] ([facility]) [address] [place] [address] * HIV-1 HIV-2 ANTIGEN/ANTIBODY (09/05/2018 10:52 PM CDT) Only the most recent of3 resultswithin the time period is included. HIV Antigen/Antibod y 1 & 2 Non-reacti ve Non-react phan 09/05/2018 11:33 PM CDT [facility] Comment: Neither HIV-1 p24 Antigen nor HIV-1/HIV-2 Antibodies are detected. Blood BLOOD SPECIMEN / Unknown Venipuncture / Unknown 09/05/2018 10:52 PM CDT 09/05/2018 10:55 PM CDT Naa Reyna MD LAB - HEMATOLOGY LUCI GUTIERREZ Performing Organization Address City/[facility]/ZIP Co de Phone Number [address] [phone] * CT FACIAL BONES WO CONTRAST (03/31/2018 3:16 PM CDT) Anatomical Region Laterality Modality Head Computed Tomogra phy 03/31/2018 3:30 PM CDT Impressions 03/31/2018 3:51 PM CDT IMPRESSION: 1. No acute intracranial process. 2. No acute facial bone fracture. Dictated by Carrie Paiz M.D. (residential driver). I, Dr. VIVIAN ORTIZ have personally reviewed and interpreted this examination/study. This report was electronically signed by VIVIAN ORTIZ on 03/31/2018 3:51 PM . Narrative 03/31/2018 3:51 [...] fracture. Dictated by Carrie Paiz M.D. (residential driver). Dr. VIVIAN Thomason have personally reviewed and [...] dated 08/29/2016. This report was approved by Jannetet Hubbard M.D. on 02/13/2018 2:[address] JOSE ALEJANDRO Thomason have personally reviewed and interpreted this examination/study. This report was electronically signed by JOSE ALEJANDRO WILLSON on 02/13/2018 6:38 PM . Narrative 02/13/2018 6:38 [...] is atherosclerosis of the left carotid bifurcation. Old lacunar infarctions are seen [...] Jannette Hubbard M.D. on 02/13/2018 2:[address] JOSE ALEJANDRO Thomason have personally reviewed and interpreted this [...] alignment. Dictated by Gaurav Kumar MD (residential driver). This report was approved by Gaurav Kumar M.D. on 10/15/2017 10:[address] EDILBERTO Thomason MD have personally reviewed and interpreted this examination/study. This report was electronically signed by Dr. EDILBERTO MARTINEZ MD on 10/15/2017 11:01 AM . Narrative 10/15/2017 11:01 AM CDT EXAMINATION: XR CLAVICLE RIGHT 2VW HISTORY: M89.8X1: Clavicle pain Procedure Note Edilberto Martinez MD - 10/15/2017 EXAMINATION: XR CLAVICLE RIGHT 2VW HISTORY: M89.8X1: Clavicle pain FINDINGS/IMPRESSION: Comparison is made with a study from 10/13/2017. A mildly displaced fracture of the distal clavicle is unchanged in alignment. Dictated by Gaurav Kumar MD (residential driver). This report was approved by Gaurav Kumar M.D. on 10/15/2017 10:[address] EDILBERTO Thomason MD have personally reviewed and interpretedthis examination/study. This report was electronically signed by Dr. EDILBERTO MARTINEZ MD on 10/15/2017 11:01 AM . Raul Gaurav Mccurdy DIAGNOSTIC IMAGING ORDERABLES * XR SHOULDER RIGHT 2VW OR MORE (10/13/2017 11:48 AM CDT) Anatomical Region Laterality Modality Upper Extremity Radiographic Adan ging 10/13/2017 11:5 2 AM CDT Impressions 10/13/2017 1:53 PM CDT IMPRESSION: Distal right clavicle fracture with mild inferior displacement of the distal fragment. Dictated by Riky Perez MD (residential driver). Dr. MADHURI Thomason M.D. have personally reviewed and interpreted this examination/study. This report was electronically signed by MADHURI FRANCO M.D. on 10/13/2017 1:53 PM . Narrative 10/13/2017 1:53 [...] fragment. Dictated by Riky Perez MD (residential driver). Dr. MADHURI Thomason M.D. have personally reviewed [...] imaged. Dictated by Riky Perez MD (residential driver). Dr. MADHURI Thomason M.D. have personally reviewed and interpreted this examination/study. This report was electronically signed by MADHURI FRANCO M.D. on 10/13/2017 1:51 PM . Narrative 10/13/2017 1:51 [...] imaged. Dictated by Riky Perez MD (residential driver). Dr. MADHURI Thomason M.D. have personally reviewed and interpreted this examination/study. This report was electronically signed by MADHURI FRANCO M.D. on 10/13/2017 1:51 PM . Power Epperson MD DIAGNOSTIC IMAGING O RDERABLES * DRUG ABUSE PANEL 10-20+ETHANOL URINE NO CONFIRM (08/28/2016 1:00 PM CDT) Only the most recent of3 resultswithin the time period is included. Pathologist [facility] Amphetamines Screen Urine Negative Negative: < 1000 ng/mL [facility] Barbiturates Screen Urine Negative Negative: < 200 ng/mL [facility] Benzodiazepine Screen Urine Negative Negative: < 200 ng/mL [facility] Opiates Urine Negative Negative: < 300 ng/mL [facility] Cocaine Metabolites Urine Negative Negative: < 300 ng/mL [facility] Phencyclidine Screen Urine Negative Negative: < 25 ng/ml [facility] Cannabinoids Screen Urine Negative Negative: <50 ng/mL [facility] Methadone Screen Urine Negative Negative: < 300 ng/mL [facility] Urine specimen (specimen) URINE / Unknown 08/28/2016 1:00 PM CDT 08/28/2016 1:03 PM CDT Narrative [facility] - 08/28/2016 1:23 PM CDT The Urine Toxicology Screening Panel does not screen for Propoxyphene, Meprobamate, Carisoprodol, Trazodone, ttzu-trq-xvhtwzm medications and/or volatiles (Acetone, Isopropanol, Methanol or Ethylene Glycol). Ethanol, Salicylate, Acetaminophen, Tricyclic Antidepressants and several therapeutic drugs may be individually assayed in serum or plasma specimen. Toxicology testing by the [facility] is an aid to medical diagnosis and treatment of patients. No documented chain of custody was maintained. Results are intended to be used for clinical purposes only. Elizabeth Hernandez MD LAB - URINE CHEMISTR Y ORDERABLES [address] [phone] * ALBUMIN BLOOD (08/28/2016 3:59 AM CDT) Albumin 3.9 3.4 - 5.0 g/dL [facility] Blood specimen (specimen) BLOOD SPECIMEN / Unknown 08/28/2016 3:59 AM CDT 08/28/2016 4:27 AM CDT Crescencio Carney MD LAB - CHEMISTRY MARSHAL MEDEROS Performing Organization Address [facility]/ZIP Co de Phone Number [address] [phone] * GLUCOSE - POINT OF CARE (AMB) [facility] (08/27/2016 7:37 PM CDT) Only the most recent of4 resultswithin the time period is included. Elizabeth Hernandez MD LAB - POINT OF CARE ORDERABLES Performing Organization Address City/[facility]/ZIP Co de Phone Number [facility] * GLUCOSE ACCUCHECK (08/27/2016 7:37 PM CDT) Only the most recent of3 resultswithin the time period is included. Glucose, Fingerstick 109 70-115mg/d L mg/dL [facility]) Comment:House Nurse: LUCIO Matamoros 08/27/2016 7:37 PM CDT Zulma Quijano MD LAB - CHEMISTRY MARSHAL MEDEROS Performing Organization Address [facility] Co de Phone Number [facility]) * MRI ANGIO NECK W CONTRAST (04/13/2015 11:02 AM COSMETIC SALES) Anatomical Region Laterality Modality Head Other Impressions 04/13/2015 3:53 PM COSMETIC SALES IMPRESSION: 1. There is no evidence of [...] electronically signed by JASON SANCHEZ M.D. on 04/13/2015 3:53 PM . Narrative 04/13/2015 3:53 PM COSMETIC SALES EXAMINATION: 1. Magnetic resonance imaging (MRI) of the brain without contrast 2. Magnetic resonance angiography (MRA) of the head without contrast 3. MRA of the neck without and with contrast HISTORY: Truncal ataxia, nystagmus and difficulty with balance, concerning for pontine stroke. TECHNIQUE: MRI of the brain was performed without contrast according to standard protocol. MRA of the eyuozh-vm-Ktiyjm was performed using a kgxm-jr-bodqhh technique without contrast. Finally, contrast-enhanced MRA of [...] contrast according tostandard protocol. MRA of the owcrve-hn-Fgcxkk was performed using uinkx-kn-pfunzs technique without contrast. Finally, contrast-enhanced MRAof the [...] BRAIN ARTERIAL WO CONT (04/13/2015 11:02 AM COSMETIC SALES) Anatomical Region Laterality Modality Head Other Impressions 04/13/2015 3:53 PM COSMETIC SALES IMPRESSION: 1. There is no evidence of [...] electronically signed by JASON SANCHEZ M.D. on 04/13/2015 3:53 PM . Narrative 04/13/2015 3:53 PM COSMETIC SALES EXAMINATION: 1. Magnetic resonance imaging (MRI) of the brain without contrast 2. Magnetic resonance angiography (MRA) of the head without contrast 3. MRA of the neck without and with contrast HISTORY: Truncal ataxia, nystagmus and difficulty with balance, concerning for pontine stroke. TECHNIQUE: MRI of the brain was performed without contrast according to standard protocol. MRA of the zwjcwp-di-Osloev was performed using a zlku-ll-yksamr technique without contrast. Finally, contrast-enhanced MRA of [...] contrast according tostandard protocol. MRA of the sewzes-bd-Whnkbj was performed using svzov-yi-popqss technique without contrast. Finally, contrast-enhanced MRAof the [...] (ABNORMAL) BLOOD GASES ART (04/11/2015 6:22 AM COSMETIC SALES) pH Arterial 7.38 7.35 - 7.45 [facility] pCO2 Arterial 36 35 - 45 mmHg [facility] pO2 Arterial 134(H) 77 - 101 mmHg [facility] HCO3 Arterial 20.9(L) 22.0 - 26.0 mmol/L [facility] TCO2 Arterial 22.0(L) 25.0 - 29.0 mmol/L [facility] Base Excess Arterial -3.6(L) -2.0 - 2.0 mmol/L [facility] Hemoglobin Arterial 12.5(L) 13.5 - 17.5 g/dL [facility] Oxyhemoglobin Arterial 94.5(L) 95.0 - 100.0 % [facility] Carboxyhemoglobin 3.5(H) 0.0 - 3.0 % [facility] Methemoglobin 0.3 0.0 - 2.0 % [facility] FI O2 Arterial 20.0 % [facility] Blood specimen (specimen) BLOOD SPECIMEN / Unknown 04/11/2015 6:22 AM COSMETIC SALES 04/11/2015 6:22 AM COSMETIC SALES Narrative [facility] - 04/11/2015 6:26 AM COSMETIC SALES FIO2->20 Naa Reyna MD LAB - BLOOD GASES OR DERABLES [facility] [address] [place] [address] Care Teams Assembler Latches And Springs Relationship Specialty Start Date End Date Dany Monsivais MD [address] [place] [address] PCP - General Family Medicine 11/18/23 Elizabeth Sullivan RN Labor And Employment Paralegal 10/14/17
--- OUTSIDE RECORDS SUMMARY | 2024-07-13 23:00 | XMS_ITS | Encounter Summary ---
Author Organization [facility] - [facility] Address [address] [place] [address] Care Team Providers Care Geospatial Technician Name Role Phone Frank Toure MD Unavailable Joyce Luevano NP Primary Care Provider Unavaila Marielena Adame MD Primary Care Provider [phone] Encounter Details Date Type Department Care Team (Late st Contact Info) Description 06/16/2022 MyCFedTaxt Message Enc [facility] Family Medicine - [address] [address] Joyce Luevano, CSO Bi Tabor Social History Tobacco Use Types [...] Coronavirus/COVID-19? No / Unsure 06/17/2022 10:38 AM SUPERVISING FIRE MARSHAL documented as of this encounter Functional Status [...] in writing. She states to fax to [phone]. Will send letter to them. [employer]SH[employer] * Yonatan Rodriguez RN - 06/16/2022 12:50 PM CST Please see note. Thanks [employer] MARSHAL documented in this encounter Plan of Treatment Not on file documented as of this encounter Visit Diagnoses Not on filedocumented in this encounter Care Teams Geospatial Technician Relationship Specialty Start Date End Date Joyce Luevano NP [address] [place] [address] PCP - General NURSE PRACTITIONER 01/14/20 10/26/23 Marielena Smallwood MD [address] [place] [address] PCP - General FAMILY PRACTICE 10/27/23 Frank Toure MD [address] [place] [address] [employer] Biomass Plant Technician CARDIOVASCULAR DISEASE 05/30/16 documented as of this encounter
[2024-07-13 23:01] VITALS: BP 139/94; PULSE 113; RESP 23; TEMP 36.6; O2SAT 100
--- OUTSIDE RECORDS SUMMARY | 2024-07-13 23:01 | XMS_ITS | Encounter Summary ---
Author Organization [facility] - [facility] Address [address] [place] [address] Care Team Providers Care Strategic Communications Specialist Name Role Phone Frank Toure MD Unavailable Joyce Luevano NP Primary Care Provider Unavaila Marielena Adame MD Primary Care Provider [phone] Encounter Details Date Type Department Care Team (Late st Contact Info) Description 03/15/2022 [facility] Message Enc [facility] Family Medicine - [address] [address] Joyce Luevano, DATABASE MANAGEMENT SPECIALIST Bi Tabor Social History Tobacco Use Types [...] on filedocumented in this encounter Care Teams Strategic Communications Specialist Relationship Specialty Start Date End Date Joyce Luevano NP [address] [place] [address] PCP - General NURSE PRACTITIONER 01/14/20 10/26/23 Marielena Smallwood MD [address] [place] [address] PCP - General FAMILY PRACTICE 10/27/23 Frank Toure MD [address] [place] [address] [employer] Clinical Research Specialist CARDIOVASCULAR DISEASE 05/30/16 documented as of this encounter
--- OUTSIDE RECORDS SUMMARY | 2024-07-13 23:01 | XMS_ITS | Encounter Summary ---
Author Organization [facility] - [facility] Address [address] [place] [address] Care Team Providers Care Extension Edger Name Role Phone Frank Toure MD Unavailable Joyce Luevano NP Primary Care Provider Unavaila Marielena Adame MD Primary Care Provider [phone] Encounter Details Date Type Department Care Team (Late st Contact Info) Description 05/11/2022 AthletePatht Message Enc [facility] Medical Group Family Medicine - [address] [address] Joyce Luevano, BOUCHRA Pat appointment for 05-13 Social History Tobacco Use Types Packs/Day Years [...] filedocumented in this encounter Care Teams Extension Edger Relationship Specialty Start Date End Date Joyce Luevano NP [address] [place] [address] PCP - General NURSE PRACTITIONER 01/14/20 10/26/23 Marielena Smallwood MD [address] [place] [address] PCP - General FAMILY PRACTICE 10/27/23 Frank Toure MD [address] [place] [address] [place] [employer] Manager CARDIOVASCULAR DISEASE 05/30/16 documented as of this encounter
--- OUTSIDE RECORDS SUMMARY | 2024-07-13 23:01 | XMS_ITS | Encounter Summary ---
Author Organization [facility] - [facility] Address [address] [place] [address] Care Team Providers Care Physician Compensation Analyst Name Role Phone Frank Toure MD Unavailable Joyce Luevano NP Primary Care Provider Unavaila Marielena Adame MD Primary Care Provider [phone] Encounter Details Date Type Department Care Team (Late st Contact Info) Description 03/08/2022 Outlistent Message Enc [facility] Medical [facility] Family Medicine - [address] [address] Joyce Luevano, BOUCHRA Vascular doctor Social History Tobacco Use Types [...] on filedocumented in this encounter Care Teams Physician Compensation Analyst Relationship Specialty Start Date End Date Joyce Luevano NP [address] [place] [address] PCP - General NURSE PRACTITIONER 01/14/20 10/26/23 Marielena Smallwood MD [address] [place] [address] PCP - General FAMILY PRACTICE 10/27/23 Frank Toure MD [address] [place] [address] [employer] State Game Warden CARDIOVASCULAR DISEASE 05/30/16 documented as of this encounter
--- OUTSIDE RECORDS SUMMARY | 2024-07-13 23:01 | XMS_ITS | Encounter Summary ---
Author Organization [facility] - [facility] Address [address] [place] [address] Care Team Providers Care Vp Compliance Name Role Phone Frank Toure MD Unavailable Joyce Luevano NP Primary Care Provider Unavaila Marielena Adame MD Primary Care Provider [phone] Encounter Details Date Type Department Care Team (Late st Contact Info) Description 02/23/2022 MyChart Message Enc [facility] Medical [facility] Family Medicine - [address] [address] Joyce Luevano, BOUCHRA Bi updated Covid Vaccination Social History Tobacco [...] 10:33 AM CDT These updated through the [employer] system. documented in this encounter Plan of Treatment Not on file documented as of this encounter Visit Diagnoses Not on filedocumented in this encounter Care Teams Vp Compliance Relationship Specialty Start Date End Date Joyce Luevano NP [address] [place] [address] PCP - General NURSE PRACTITIONER 01/14/20 10/26/23 Marielena Smallwood MD [address] [place] [address] PCP - General FAMILY PRACTICE 10/27/23 Frank Toure MD [address] [place] [address] [employer] Civil Engineering Design Draftsperson CARDIOVASCULAR DISEASE 05/30/16 documented as of this encounter
--- OUTSIDE RECORDS SUMMARY | 2024-07-13 23:01 | XMS_ITS | Encounter Summary ---
Author Organization [facility] - [facility] Address [address] [place] [address] Care Team Providers Care Clinical Laboratory Technician Name Role Phone Frank Toure MD Unavailable Joyce Luevano NP Primary Care Provider Unavaila Marielena Adame MD Primary Care Provider [phone] Encounter Details Date Type Department Care Team (Late st Contact Info) Description 02/23/2022 [employer] Message Enc [facility] Medical [facility] Family Medicine - [address] [address] Joyce Luevano, PUBLIC RELATIONS DIRECTOR Bi Tabor toenail Social History Tobacco Use [...] filedocumented in this encounter Care Teams Clinical Laboratory Technician Relationship Specialty Start Date End Date Joyce Luevano NP [address] [place] [address] PCP - General NURSE PRACTITIONER 01/14/20 10/26/23 Marielena Smallwood MD [facility] [place] [address] PCP - General FAMILY PRACTICE 10/27/23 Frank Toure MD [address] [place] [address] [employer] Chain Saw Driver CARDIOVASCULAR DISEASE 05/30/16 documented as of this encounter
--- OUTSIDE RECORDS SUMMARY | 2024-07-13 23:01 | XMS_ITS | Encounter Summary ---
Author Organization [facility] - [facility] Address [address] [place] [address] Care Team Providers Care Vehicle Damage Appraiser Name Role Phone Frank Toure MD Unavailable Joyce Luevano NP Primary Care Provider Unavaila Marielena Adame MD Primary Care Provider [phone] Encounter Details Date Type Department Care Team (Late st Contact Info) Description 02/23/2022 MyCZelgort Message Enc [facility] Family Medicine - [address] [address] Joyce Luevano, COBOL APPLICATION DEVELOPER [employer] Social History Tobacco Use Types [...] 11:25 AM CDT Message sent through other [employer] chart message * Yonatan Rodriguez RN - 02/23/2022 10:24 AM CDT Please see note. Thanks documented in this encounter Plan of Treatment Not on file documented as of this encounter Visit Diagnoses Not on filedocumented in this encounter Care Teams Vehicle Damage Appraiser Relationship Specialty Start Date End Date Joyce Luevano NP [address] [place] [address] PCP - General NURSE PRACTITIONER 01/14/20 10/26/23 Marielena Smallwood MD [address] [place] [id number] PCP - General FAMILY PRACTICE 10/27/23 Frank Toure MD [address] [place] [address] [place] Engineer Remote Control Diesel CARDIOVASCULAR DISEASE 05/30/16 documented as of this encounter
--- OUTSIDE RECORDS SUMMARY | 2024-07-13 23:01 | XMS_ITS | Encounter Summary ---
Author Organization [facility] - [facility] Address [address] [place] [address] Care Team Providers Care Protection Chief Industrial Plant Name Role Phone Frank Toure MD Unavailable Joyce Luevano NP Primary Care Provider Unavaila Marielena Adame MD Primary Care Provider [phone] Encounter Details Date Type Department Care Team (Late st Contact Info) Description 03/09/2022 IMedExchanget Message Enc [facility] Family Medicine - [address] [address] Joyce Luevano, BORDER PATROL OFFICER Update on Bi Tabor Social History Tobacco [...] on filedocumented in this encounter Care Teams Protection Chief Industrial Plant Relationship Specialty Start Date End Date Joyce Luevano NP [address] [place] [address] PCP - General NURSE PRACTITIONER 01/14/20 10/26/23 Marielena Smallwood MD [address] [place] [id number] PCP - General FAMILY PRACTICE 10/27/23 Frank Toure MD [address] [place] [address] [employer] Resident Service Coordinator CARDIOVASCULAR DISEASE 05/30/16 documented as of this encounter
--- OUTSIDE RECORDS SUMMARY | 2024-07-13 23:01 | XMS_ITS | Encounter Summary ---
Author Organization [facility] Address [address] [place] [address] Care Team Providers Care Branch Credit Counselor Name Role Phone Frank Toure MD Unavailable Marielena Smallwood MD Primary Care Provider [phone] Encounter Details Date Type Department Care Team (Latest Contact Info) Description 07/08/2024 Scan HEALTH INFO SRVCS Scanned, Doc Med [...] Assessment Author Status Yes 12/04/2018 2:03 PM Anaih Chavarria RN Active documented as of this [...] on filedocumented in this encounter Care Teams Branch Credit Counselor Relationship Specialty Start Date End Date Marielena Smallwood MD [address] [place] [id number] PCP - General FAMILY PRACTICE 10/27/23 Frank Toure MD [address] [place] [phone] [place] Chiropractic Neurologist CARDIOVASCULAR DISEASE 05/30/16 documented as of this encounter
--- OUTSIDE RECORDS SUMMARY | 2024-07-13 23:01 | XMS_ITS | Encounter Summary ---
Author Organization [facility] - [facility] Address [address] [place] [address] Care Team Providers Care Water Tender Name Role Phone Frank Toure MD Unavailable Joyce Luevano NP Primary Care Provider Unavaila Marielena Adame MD Primary Care Provider [phone] Encounter Details Date Type Department Care Team (Late st Contact Info) Description 07/06/2022 MyCTargeted Instant Communicationst Message Enc [facility] Family Medicine - [address] [address] Joyce Luevano, TECHNICAL SUPPORT ASSOCIATE [employer] Social History Tobacco Use Types [...] Coronavirus/COVID-19? No / Unsure 06/17/2022 10:38 AM [id number] PROGRAMMER ANALYST documented as of this encounter Functional Status [...] 1:34 PM CST Please see note. Thanks 400 PROGRAMMER ANALYST * Yonatan Rodriguez RN - 07/07/2022 8:09 AM CST Please see note. Thanks 400 PROGRAMMER ANALYST documented in this encounter Plan of Treatment Not on file documented as of this encounter Visit Diagnoses Not on filedocumented in this encounter Care Teams Water Tender Relationship Specialty Start Date End Date Joyce Luevano NP [address] [place] [address] PCP - General NURSE PRACTITIONER 01/14/20 10/26/23 Marielena Smallwood MD [address] [place] [id number] PCP - General FAMILY PRACTICE 10/27/23 [place] [address] [place] [id number] Chivo Dramatic Art Teacher CARDIOVASCULAR DISEASE 05/30/16 documented as of this encounter
--- OUTSIDE RECORDS SUMMARY | 2024-07-13 23:01 | XMS_ITS | Encounter Summary ---
Author Organization [facility] - [facility] Address [address] [place] [address] Care Team Providers Care Tv Production Assistant Name Role Phone Frank Toure MD Unavailable Joyce Luevano NP Primary Care Provider Unavaila Marielena Adame MD Primary Care Provider [phone] Encounter Details Date Type Department Care Team (Late st Contact Info) Description 03/13/2022 Ungallit Message Enc [facility] Family Medicine - [address] [address] Joyce Luevano, SCHOOL CLERK Bi [employer] Update Social History Tobacco Use [...] on filedocumented in this encounter Care Teams Tv Production Assistant Relationship Specialty Start Date End Date Joyce Luevano NP [address] [place] [address] PCP - General NURSE PRACTITIONER 01/14/20 10/26/23 Marielena Smallwood MD [address] [place] [id number] PCP - General FAMILY PRACTICE 10/27/23 Frank Toure MD [address] [place] [address] [employer] Medical Services Assistant CARDIOVASCULAR DISEASE 05/30/16 documented as of this encounter
[2024-07-13 23:08] VITALS: PULSE 111; O2SAT 100
--- NOTE | 2024-07-13 23:17 | ED.CHESTPAIN ---
HPI - Chest Pain General Chief Complaint: Chest Pain Stated Complaint: CP & SOB x 15 MINUTES, IMPROVED W/ TRACH SUCTIONIN Time Seen by Provider: 07/13/24 22:52 History of Present Illness HPI narrative: Patient coming from prison, has a trach, was having chest tightness and difficulty breathing and coughing. When EMS arrived they did suction his trach, got a lot of stuff out, and patient now feels much better. Sitting comfortably, breathing comfortably on room air. Related Data Home Medications ?Medication ?Instructions ?Recorded ?Confirmed ?Last Taken ?Type metoprolol tartrate 25 mg tablet 25 mg feeding tube BID 12/18/22 03/30/24 Unknown History polyethylene glycol 3350 17 17 g feeding tube DAILY PRN 12/18/22 03/30/24 Unknown History gram/dose oral powder Constipation bisacodyl 10 mg rectal suppository 10 mg RECTAL DAILY PRN Constipation 02/11/23 03/30/24 Unknown History sennosides 8.6 mg tablet (senna) 8.6 mg feeding tube BID 02/11/23 03/30/24 Unknown History guaifenesin 100 mg/5 mL oral liquid 300 mg feeding tube BID PRN Cough 07/08/23 03/30/24 Unknown History magnesium hydroxide 400 mg/5 mL 30 ml PO HS PRN Constipation 12/13/23 03/30/24 Unknown History oral suspension (Milk of Magnesia) artificial tears solution eye drops 1 drp ophthalmic (eye) PRN PRN Dry 02/10/24 03/30/24 Unknown History Eye(S) atorvastatin 40 mg tablet 40 mg PO HS 02/10/24 03/30/24 Unknown History calcium carbonate 500 mg/5 mL (as 1,250 mg PO Q6H PRN Heartburn 02/10/24 03/30/24 Unknown History calcium carb 1,250 mg/5 mL) oral suspension clobazam 10 mg tablet 10 mg feeding tube DAILY 02/10/24 03/30/24 Unknown History famotidine 20 mg tablet 20 mg feeding tube BID 02/10/24 03/30/24 Unknown History folic acid 1 mg tablet 1 mg feeding tube DAILY 02/10/24 03/30/24 Unknown History ipratropium 0.5 mg-albuterol 3 mg 3 ml inhalation Q6H PRN Shortness 02/10/24 03/30/24 Unknown History (2.5 mg base)/3 mL nebulization Of Breath soln lacosamide 10 mg/mL oral solution 200 mg feeding tube BID 02/10/24 03/30/24 Unknown History levetiracetam 100 mg/mL oral 1,500 mg feeding tube BID 02/10/24 03/30/24 Unknown History solution magnesium citrate (Citroma oral 296 ml PO DAILY PRN Constipation 02/10/24 03/30/24 Unknown History solution) thiamine HCl (vitamin B1) 100 mg 100 mg feeding tube DAILY 02/10/24 03/30/24 Unknown History tablet valproic acid (as sodium salt) 250 1,250 mg feeding tube QID 02/10/24 03/30/24 Unknown History mg/5 mL oral solution acetaminophen 650 mg/20.3 mL oral 650 mg feeding tube Q4H PRN Pain 03/30/24 03/30/24 Unknown History suspension (Scale Score 1-3) apixaban 5 mg tablet (Eliquis) 5 mg feeding tube BID 03/30/24 03/30/24 Unknown History aspirin 81 mg chewable tablet 81 mg feeding tube DAILY 03/30/24 03/30/24 Unknown History Allergies Allergy/AdvReac Type Severity Reaction Status Date / Time clonazepam Allergy Unknown Unknown Verified 07/13/24 23:10 Review of Systems Review of Systems: All systems reviewed & are unremarkable except as noted in HPI and below PMFSH Past Medical History Medical History Deep venous thrombosis of upper extremity Benign prostatic hyperplasia Cerebrovascular accident Residual expressive aphasia, dysphagia, and left-sided weakness. Chronic obstructive pulmonary disease Esophageal diverticulum Gastroparesis Iron deficiency anemia Vascular dementia with psychotic disturbance Seizure disorder Surgical History Surgical History History of gastrostomy tube placement History of tracheostomy History of left above knee amputation Family History Family History Other Unknown family medical history Social History Social History (System 06/13/24 @ 12:17 by Abimbola Ariza) Social History: Surrogate medical decision maker: Adriane Hilliard, sibling. Code status: Full code. 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 EYES: EOMI, conjunctiva normal ENT: Trach in place without purulent secretions LUNGS: Nonlabored breathing. HEART: Tachycardic ABD: [Soft], [nontender to palpation] EXT: LLE AKA SKIN: [No rashes or lesions.] NEURO: [Alert. No gross focal sensory or strength deficits.] PSYCH: Normal affect Course Vital Signs Vital signs: Vital Signs Temperature 97.9 F 07/13/24 23:01 Pulse Rate 113 H 07/13/24 23:01 Respiratory Rate 23 H 07/13/24 23:01 Blood Pressure 139/94 H 07/13/24 23:01 Pulse Oximetry 100 07/13/24 23:01 Oxygen Delivery Room Air 07/13/24 23:01 Temperature 97.6 F 07/14/24 03:31 Pulse Rate 115 H 07/14/24 03:31 Respiratory Rate 21 H 07/14/24 03:31 Blood Pressure 151/82 H 07/14/24 03:31 Pulse Oximetry 100 07/14/24 03:31 Oxygen Delivery Room Air 07/13/24 23:08 MDM - Chest Pain MDM Narrative Medical decision making narrative: ED COURSE AND MEDICAL DECISION MAKIN-year-old male presenting with chest pain. EKG done in triage negative for acute ischemic changes. Cardiac workup is initiated. EKG: Performed in triage and interpreted by me. Normal sinus rhythm. Rate 115. Left axis. SC normal. QRS duration normal. QTc normal. No pathologic Q waves. No ST segment elevation or depression to suggest acute ischemia. He had been suctioned by EMS and on re-evaluation, patient now denies any chest pain or shortness of breath. He rests comfortably in no distress. No acute ischemic changes on EKG and negative troponin making ACS unlikely. No lower extremity swelling and no current chest pain or shortness of breath making PE less likely compared to the more likely cause of this chest pain which is secretions in his trach. Presentation not consistent with dissection or aneurysm without radiation of pain or pulse deficits. CXR negative for mediastinal widening. No abdominal pain or signs of sepsis that would be concerning for esophageal perforation or mediastinitis. No cardiomegaly or JVD to suggest pericardial effusion/tamponade. Patient then had a bowel movement in he more agitated with increased heart rate to the 130s-140s. He was cleaned up and her rate now back down to 100s. 3 hours troponin is negative repeat EKG at 155 shows sinus tachycardia at rate 105, normal SC, QRS, QTC, no significant ST elevations or depressions or signs of acute ischemia or arrhythmia. On repeat evaluation just prior to discharge, the patient is no acute distress. Will have him follow up outpatient with return precautions. Patient agreeable with plan. Lab Data 07/13/24 23:54 07/13/24 23:54 Labs: Lab Results 07/13/24 07/14/24 Range/Units 23:54 01:50 WBC 13.0 H (4.5-10.0) K/mm3 RBC 4.41 L (4.6-6.20) M/mm3 Hgb 14.3 (14.0-18.0) g/dL Hct 43.2 (42.0-52.0) % MCV 98.0 (80-100) fl MCH 32.4 (26-34) pg MCHC 33.1 (32-36) g/dl RDW 13.3 (11.5-14.5) % Plt Count 190 (150-375) k/mm3 MPV 12.3 H (7.4-10.4) fl Immature Gran % (Auto) 0.2 (0-0.5) % Neut % (Auto) 68.5 (45.5-73.1) % Lymph % (Auto) 18.1 L (18.3-44.2) % [place] % (Auto) 9.1 H (2.6-8.5) % Eos % (Auto) 3.8 (0-4.4) % Baso % (Auto) 0.3 (0.2-1.2) % Lymph # (Auto) 2.34 (0.9-3.2) K/mm3 [place] # (Auto) 1.2 H (0.1-0.6) K/mm3 Eos # (Auto) 0.5 H (0-0.3) K/mm3 Baso # (Auto) 0.0 (0.0-0.1) K/mm3 Abs Immat Gran (auto) 0.03 (0.00-0.031) K/mm3 Absolute Neuts (auto) 8.9 H (1.3-6.7) K/mm3 Absolute Nucleated RBC 0.000 (0.0-0.012) K/mm3 Nucleated RBC % 0.0 (0.0-0.2) % PT 14.4 (11.1-14.7) Seconds INR 1.1 APTT 35.8 (22.3-36.8) Seconds Sodium 142 (137-145) mmol/L Potassium 4.3 (3.4-5.0) mmol/L Chloride 103 (98-107) mmol/L Carbon Dioxide 28 (22-30) mmol/L Anion Gap 11 (4-12) mmol/L BUN 20 (9-20) mg/dL Creatinine 0.66 L (0.7-1.3) mg/dL Estim Creat Clear Calc Not Reportable Estimated GFR > 60 (59 - ) Glucose 101 (65-110) mg/dL Calcium 9.9 (8.4-10.2) mg/dL Total Bilirubin 1.0 (0.2-1.3) mg/dL AST 22 (17-59) U/L ALT 23 (6-50) U/L Alkaline Phosphatase 114 (38-126) U/L Troponin I < 0.012 < 0.012 (0.000-0.034) ng/mL Total Protein 8.0 (6.3-8.2) g/dL Albumin 4.0 (3.5-5.1) g/dL Lipase 51 (23-300) U/L Discharge Plan Discharge Clinical Impression: Chest pain, Increased tracheal secretions Patient Disposition: Home, Self-Care Condition: Stable Instructions: Chest Pain (ED), Tracheostomy Care (ED) Additional Instructions: Please follow up with your doctor; you can always return for any further issues. Patient Language: Armenian Prescriptions: No Action bisacodyl 10 mg Suppository 10 mg RECTAL DAILY PRN (Reason: Constipation) Rx Instructions: if no results for MOM sennosides [senna] 8.6 mg Tablet 8.6 mg feeding tube BID guaifenesin 100 mg/5 mL liquid 300 mg feeding tube BID PRN (Reason: Cough) magnesium hydroxide [Milk of Magnesia] 400 mg/5 mL Suspension 30 ml PO HS PRN (Reason: Constipation) Rx Instructions: If no BM in 3 days polyethylene glycol 3350 17 gram/dose powder 17 g feeding tube DAILY PRN (Reason: Constipation) metoprolol tartrate 25 mg tablet 25 mg feeding tube BID atorvastatin 40 mg tablet 40 mg PO HS ipratropium-albuterol 0.5 mg-3 mg(2.5 mg base)/3 mL solution for nebulization 3 ml INHALATION Q6H PRN (Reason: Shortness Of Breath) artificial tears solution Drops 1 drp OPHTHALMIC (EYE) PRN PRN (Reason: Dry Eye(S)) Rx Instructions: instill 1 drop per eye as needed for dry eye thiamine HCl (vitamin B1) 100 mg Tablet 100 mg feeding tube DAILY famotidine 20 mg tablet 20 mg feeding tube BID valproic acid (as sodium salt) 250 mg/5 mL solution 1,250 mg feeding tube QID magnesium citrate [Citroma] Solution 296 ml PO DAILY PRN (Reason: Constipation) Rx Instructions: if no results from enema folic acid 1 mg tablet 1 mg feeding tube DAILY levetiracetam 100 mg/mL solution 1,500 mg feeding tube BID calcium carbonate 500 mg/5 mL (1,250 mg/5 mL) Suspension 1,250 mg PO Q6H PRN (Reason: Heartburn) lacosamide 10 mg/mL solution 200 mg feeding tube BID clobazam 10 mg tablet 10 mg feeding tube DAILY Eliquis 5 mg Tablet 5 mg feeding tube BID aspirin 81 mg Tablet,Chewable 81 mg feeding tube DAILY acetaminophen 650 mg/20.3 mL Suspension 650 mg feeding tube Q4H PRN (Reason: Pain (Scale Score 1-3)) meropenem 1 gram Recon Soln 1 g IV Q8H Qty: 8 0RF Follow-up/Referrals: Lauro,MD Burke [Primary Care Provider] -
[2024-07-14] LABS: Basophils Percent Auto 0.3 % (0.2-1.2); Eosinophils Absolute Auto 0.5 K/mm3 (0-0.3); Eosinophils Percent Auto 3.8 % (0-4.4); Hematocrit 43.2 % (42.0-52.0); Hemoglobin 14.3 g/dL (14.0-18.0); Immature Granulocyte Absolute 0.03 K/mm3 (0.00-0.031); Immature Granulocyte Percent A 0.2 % (0-0.5); Lymphocytes Absolute Auto 2.34 K/mm3 (0.9-3.2); Lymphocytes Percent Auto 18.1 % (18.3-44.2); Mean Corpuscular HGB Conc 33.1 g/dl (32-36); Mean Corpuscular Hemoglobin 32.4 pg (26-34); Mean Platelet Volume 12.3 fl (7.4-10.4); Monocytes Absolute Auto 1.2 K/mm3 (0.1-0.6); Monocytes Percent Auto 9.1 % (2.6-8.5); Neutrophils Absolute Auto 8.9 K/mm3 (1.3-6.7); Neutrophils Percent Auto 68.5 % (45.5-73.1); Platelet Count Result 190 k/mm3 (150-375); Red Blood Count 4.41 M/mm3 (4.6-6.20); Red Cell Distribution Width 13.3 % (11.5-14.5)
[2024-07-14 00:19] LABS: Alanine Aminotransferase 23 U/L (6-50); Alkaline Phosphatase 114 U/L (38-126); Anion Gap 11 mmol/L (4-12); Aspartate Amino Transferase 22 U/L (17-59); Blood Urea Nitrogen 20 mg/dL (9-20); Calcium 9.9 mg/dL (8.4-10.2); Carbon Dioxide 28 mmol/L (22-30); Chloride 103 mmol/L (98-107); Estimated Glomerular Filt Rate > 60; Glucose 101 mg/dL (65-110); INR 1.1; Lipase 51 U/L (23-300); Potassium 4.3 mmol/L (3.4-5.0); Prothrombin Time 14.4 Seconds (11.1-14.7); Sodium 142 mmol/L (137-145)
[2024-07-14 00:20] LABS: Partial Thromboplastin Time 35.8 Seconds (22.3-36.8)
[2024-07-14 00:30] LABS: Troponin I < 0.012 ng/mL (0.000-0.034)
[2024-07-14 01:11] VITALS: BP 138/82; PULSE 100; RESP 18; TEMP 36.6; O2SAT 100
--- NOTE | 2024-07-14 01:45 | ECG_ITS ---
Test Date: 2024-07-14 01:55:45 Measurements Intervals [place] Rate: 105 P: 69 FL: 151 QRS: -25 QRSD: 77 T: 80 QT: 312 QTc: 413 Interpretive Statements SINUS TACHYCARDIA CANNOT R/O SEPTAL INFARCT, AGE INDETERMINATE INFERIOR INFARCT, AGE INDETERMINATE BORDERLINE ST-T WAVE ABNORMALITY- HIGH LATERAL LEADS BASELINE ARTIFACT- I, II, III, AVR, AVL, AVF ABNORMAL ECG Compared to ECG 07/13/2024 22:56:40 No significant changes Electronically Signed On 07-14-2024 07:58:41 LAND ACQUISITION ANALYST by Dave Hernandez D.O.
[2024-07-14 02:59] LABS: Troponin I < 0.012 ng/mL (0.000-0.034)
[2024-07-14] MEDS: LACTATED RINGERS 1,000 ML 999 ML IV CONT (03:20)
[2024-07-14 03:31] VITALS: BP 151/82; PULSE 115; RESP 21; TEMP 36.4; O2SAT 100
[2024-07-14 05:00] VITALS: BP 126/86; PULSE 115; RESP 16; TEMP 36.7; O2SAT 98
[2024-07-14 06:22] VITALS: BP 125/85; PULSE 115; RESP 12; TEMP 36.7; O2SAT 100
== END 2024-07-14 08:20 ==
PROVIDERS: Emergency Provider Emergency Medicine; PCP Internal Medicine
DX: R07.89 Other chest pain (principal); R09.3 Abnormal sputum; J44.9 Chronic obstructive pulmonary disease, unspecified; I69.920 Aphasia following unspecified cerebrovascular disease; I69.991 Dysphagia following unspecified cerebrovascular disease; I69.954 Hemiplegia and hemiparesis following unspecified cerebrovascular disease affecting left non-dominant side; R13.10 Dysphagia, unspecified; F01.52 Vascular dementia, unspecified severity, with psychotic disturbance; G40.909 Epilepsy, unspecified, not intractable, without status epilepticus; N40.0 Benign prostatic hyperplasia without lower urinary tract symptoms; D50.9 Iron deficiency anemia, unspecified; K31.84 Gastroparesis; Z93.0 Tracheostomy status; Z93.1 Gastrostomy status; Z89.612 Acquired absence of left leg above knee; Z86.718 Personal history of other venous thrombosis and embolism; Z87.891 Personal history of nicotine dependence; Z79.01 Long term (current) use of anticoagulants; Z79.82 Long term (current) use of aspirin; Z79.899 Other long term (current) drug therapy; R00.0 Tachycardia, unspecified; R94.31 Abnormal electrocardiogram [ECG] [EKG]
CPT/HCPCS: 36415; 71045; 80053; 83690; 84484; 85025; 85610; 85730; 93005; 96360; 99284; J7120

== ENCOUNTER 2024-08-09 00:43 | Emergency (ER) | payer OTHER, SELFPAY ==
[2024-08-09] VITALS (12 sets, daily range): BP systolic 134–164; BP diastolic 75–86; PULSE 60–76; RESP 17–20; O2SAT 100
--- OUTSIDE RECORDS SUMMARY | 2024-08-09 01:05 | XMS_ITS | Clinical Summary ---
Author Organization [facility] Address [address] [place] [address] Care Team Providers Care Endoscopy Specialty Technician Name Role Phone Marielena Smallwood MD Primary [...] apply miconazole twice daily. 141 g 07/09/19 Active phenazopyridine (PYRIDIUM) 200 mg tablet Take 1 tablet (200 mg total) by mouth 3 (three) times a day as needed for bladder spasms 10 tablet 07/09/19 25 Active Active Problems Problem Noted Date Diagnosed Date Type 2 diabetes mellitus 06/28/2024 Assessment & Plan (06/28/2024 11:42 AM CLEAT THROWER): Now back on full TF's sugars running mildly high. Monitor with q4 accuchecks and SSI. Hypophosphatemia 06/27/2024 Assessment & Plan (06/28/2024 11:44 AM CLEAT THROWER): <0.7 ? 2/2 refeeding syndrome. Started on neutraphos 2pkg QID 06/26. Still Phos<0.7 06/27. Tx with IV NaPhos 30mmoles and cont per tube replacement and monitor closely. -06/28: Phos=3.3, reduce nuetraphos to 1 PKG BID and monitor History of DVT (deep vein thrombosis) 06/26/2024 Assessment & Plan (06/26/2024 1:32 PM CLEAT THROWER): -On anticoagulation with Eliquis 5 mg po BID for hx of DVT -per chart review hx of Left Subclavian vein DVT diagnosed 08/01/23 H/O: GI bleed 06/25/2024 Assessment & Plan (06/26/2024 1:32 PM CLEAT THROWER): - [facility] ( 06-07-24 [...] [facility] as peviously arranged Tracheostomy in place 06/25/2024 Assessment & Plan (06/26/2024 1:36 PM CLEAT THROWER): Tracheostomy dependence, has a Shiley #4 cuffed. Pt followed at [facility], per notes trach in place for pulmonary toilet due to his copious secretions and ongoing aspiration of his secretions. -needing frequent suctioning -sats stable on 28% FIO2 by HHTC -Was getting VEST at [facility] Low grade fever 06/20/2024 Assessment & Plan (06/26/2024 1:34 PM CLEAT THROWER): Low-grade fever and tachycardia, softer BP after [...] 06/17/2024 Assessment & Plan (06/28/2024 11:43 AM CLEAT THROWER): -patient at admission with a G tube, was getting continous tube feedings at [facility] and not tolerating, -was changed to [...] 12/14/22 (additional documented GJ tube procedures at [facility] most recent 09/09/23). Pt ' feeding tube fell off and pt had 18 [place] G tube placed at [facility] ED on 04/21/24 (records on care everywhere)and after that he has not tolerated well tube feedings per discussion with his sister Ms Hilliard,Adriane [phone] POA - consulted IR 06-20-24 for conversion [...] goal 06/25, adjust FWF per hydration status, manager of patient to follow up -On full TF's-osmolite 1.5. Phos repleted. Copious oral secretions 06/13/2024 Assessment & Plan (06/26/2024 1:29 PM CLEAT THROWER): Patient on chronic glycopyrrolate due to secretions, held at admission 2/ to potential for constipation with plan to add back when he's had a bowel movements -resume on 06-19- hold on 06-20 due to somnolence. Suction PRN - restart glycopyrrolate 1mg BID 06/26 and monitor Abdominal pain 06/12/2024 Assessment & Plan (06/26/2024 1:23 PM CLEAT THROWER): -p/w abdominal distention from SNF to ED on 06-12 ,reported biliary emesis per [facility] (approximately 300 cc) , not associated fevers or change in bowel habits. Feeding tube placed to gravity drainage in ED H&P notes regular bowel movements. CT scan on 06-12 in ED with stool in the rectum and sigmoid. [place] likely constipation contributing to the patient's abdominal [...] 06/12/2024 Assessment & Plan (06/26/2024 12:08 AM CLEAT THROWER): Complicated by left LE AKA. History of CVA (cerebrovascular accident) 2020 Assessment & Plan (06/26/2024 1:32 PM CLEAT THROWER): - hx of RT parietal CVA- hx of dementia Cont asa and statin Essential hypertension 12/11/2020 Assessment & Plan (06/26/2024 1:30 PM CLEAT THROWER): - on metoprolol and norvasc, held with soft BP 06-19 - resume metoprolol 06-21 -resume amlodipine 06-22 - Monitor Hyperlipidemia 12/11/2020 Assessment & Plan (06/12/2024 3:47 PM CLEAT THROWER): - Continue home statin Seizure 12/10/2020 Assessment & Plan (06/26/2024 1:36 PM CLEAT THROWER): History of seizure disorder secondary to traumatic brain injury. Currently on valproate, Vimpat, Keppra and Cobazam - Continue home medication, valproate level low at admit 48 on 06-12, 48 on 06-13, Valproic acid level 76 06-19 prior to dose, lacosamide level 1.4 on 06/12, 9.6 on 06-19 Followed by Neurology at [facility] Cognitive communication deficit 08/25/2020 Cerebrovascular accident 06/13/2019 Cerebral infarction due to u nspecified occlusion or stenosis of unspecified cerebral artery 05/25/2019 Hemiplegia and hemiparesis f ollowing cerebral infarction affecting right non-dominant side 05/25/2019 Alzheimer's disease with early onset 05/17/2019 Epilepsy, unspecified, not i ntractable, without status epilepticus 05/16/2019 Paroxysmal tachycardia, unspecified 05/16/2019 Cerebrovascular accident (CV A) due to thrombosis [...] Encounters Date Type Department Care Team Description 07/09/2024 7:23 PM CLEAT THROWER - 07/09/2024 11:59 PM CLEAT THROWER Hospital Encounter AMBULANCE BILLING [address] [place] [address] Discharge Disposition: Discharge to home or self care 07/08/2024 7:52 PM CLEAT THROWER - 07/09/2024 7:48 [facility] Emergency Department [address] [place] [address] Tri Martinez MD Thomas, Jenna Marie, MD Tracheostomy complication, unspecified complication type (HCC) (Primary Dx); Balanitis Discharge Disposition: Discharge to home or self care 06/12/2024 10:26 AM CLEAT THROWER - 06/28/2024 5:25 PM CLEAT THROWER Hospital Encounter [facility] [address] [place] [address] Shakila Jung MD Choi, Che[place] Ho Jeffrey, [...] 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) Followed up at [facility] ([facility]) Degenerative cervical spinal stenosis Family History Medical History Relation Name Comments Coronary artery disease Father Stroke Father Hypertension Mother Relation Name Status Comments Father Mother Social History Tobacco Use Types Packs/Day Years Used Date Smoking Tobacco: Former Cigarettes Smokeless Tobacco: Current Tobacco Cessation:Counseling Given: Yes [facility] Utilities Answer Date Recorded In the past 12 months has e electric, gas, oil, or water company threatened to shut off services in your [...] often do you attend chur ch or adventism services? Never 06/18/2024 Do you belong to any clubs o r organizations such as gnosticist groups, unions, fraternal or athletic groups, or [...] any time in the past 12 m [facility], were you homeless or living in a senior living (including now)? No 06/18/2024 Personal Safety Answer Date Recorded Have you ever been in or are you currently in a harmful physical or emotional relationship or is someone making you feel afraid or unsafe? Denies 07/08/2024 Sex and Gender Information Value Date Recorded Sex Assigned at Not on file Legal Sex Male 6:11 AM CLEAT THROWER Gender Identity Not on file Sexual Orientation Not on file Obstetrics History Last Filed Vital Signs Vital Sign Reading Time Taken Comments Blood Pressure 145/83 07/09/2024 6:00 AM CLEAT THROWER Pulse 91 07/09/2024 6:00 AM CLEAT THROWER Temperature 36.5 C (97.7 F) 07/09/2024 6:31 AM CLEAT THROWER Respiratory Rate 10 07/09/2024 6:00 AM CLEAT THROWER Oxygen Saturation 100% 07/09/2024 6:00 AM CLEAT THROWER Inhaled Oxygen Concentration - - Weight 79.8 kg (176 lb) 07/09/2024 2:16 AM CLEAT THROWER Height 182.9 cm (6') 07/09/2024 2:16 AM CLEAT THROWER Body Mass Index 23.87 07/09/2024 2:16 AM CLEAT THROWER Plan of Treatment Health Maintenance Due Date [...] Additional history exists Hemoglobin A1C 12/10/2024 06/12/2024, 04/0 06/2022, 05/12/2022, Additional history exists Lipid Panel 06/08/2025 06/08/2024, 07/29, 02/02/2016, Additional history exists Depression Screening 06/12/2025 06/12/2024 eGFR 07/08/2025 07/08/2024, 05/31, 06/26/2024, Additional history exists DTaP/Tdap/Td Vaccine (3 - Td or Tdap) 06/06/2027 06/06/2017, 03/23/2017 Hepatitis C Screening Completed 06/26/2024 Procedures Procedure Name Priority Date/Time Associated Diagnosis Comments POCT RAPID HIV ANTIBODY COMMUNITY SCREENING-ISSA ELIGIBLE STAT 07/09/2024 5:32 AM CLEAT THROWER SEPSIS LACTATE WITH REFLEX Timed 07/09/2024 4:33 AM CLEAT THROWER ED PERIPHERAL LINE INSERTION Routine 07/09/2024 1:18 AM CLEAT THROWER SEPSIS LACTATE WITH REFLEX Timed 07/09/2024 1:15 AM CLEAT THROWER RPR STAT 07/09/2024 1:15 AM CLEAT THROWER N. GONORRHOEAE/C. TRACHOMATIS AMPLIFICATION STAT 07/09/2024 1:02 AM CLEAT THROWER URINALYSIS AND REFLEX TO MICROSCOPIC AND CULTURE STAT 07/09/2024 1:02 AM CLEAT THROWER ED PERIPHERAL LINE INSERTION Routine 07/08/2024 10:[address] CHEST ABDOMEN PELVIS W CONTRAST ED 07/08/2024 9:55 PM CLEAT THROWER EGFR STAT 07/08/2024 8:56 PM CLEAT THROWER DIFFERENTIAL AUTO STAT 07/08/2024 8:5 6 PM CLEAT THROWER SEPSIS LACTATE WITH REFLEX STAT 07/08/2024 8:56 PM CLEAT THROWER LIPASE STAT 07/08/2024 8:56 PM CLEAT THROWER COMPREHENSIVE METABOLIC PANEL STAT 07/08/2024 8:56 PM CLEAT THROWER CBC WITH AUTO DIFFERENTIAL STAT 07/08/2024 8:56 PM CLEAT THROWER RESPIRATORY PATHOGEN PANEL STAT 07/08/2024 8:56 PM CLEAT THROWER ECG 12-LEAD Routine 07/08/2024 8:28 PM CLEAT THROWER XR CHEST 1 VIEW ED 07/08/2024 8:18 PM CLEAT THROWER POCT GLUCOSE DEVICE Routine 06/28/2024 4 :24 PM CLEAT THROWER POCT GLUCOSE DEVICE Routine 06/28/2024 1 2:30 PM CLEAT THROWER POCT GLUCOSE DEVICE Routine 06/28/2024 7 :43 AM CLEAT THROWER POCT GLUCOSE DEVICE Routine 06/28/2024 4 :01 AM CLEAT THROWER POCT GLUCOSE DEVICE Routine 06/27/2024 1 1:28 PM CLEAT THROWER EGFR Routine 06/27/2024 9:30 PM CLEAT THROWER PHOSPHORUS Routine 06/27/2024 9:30 PM CLEAT THROWER MAGNESIUM Routine 06/27/2024 9:30 PM CLEAT THROWER BASIC METABOLIC PANEL Routine 06/27/2024 9:30 PM CLEAT THROWER POCT GLUCOSE DEVICE Routine 06/27/2024 8 :39 PM CLEAT THROWER POCT GLUCOSE DEVICE Routine 06/27/2024 5 :10 PM CLEAT THROWER POCT GLUCOSE DEVICE Routine 06/27/2024 4 :27 PM CLEAT THROWER POCT GLUCOSE DEVICE Routine 06/27/2024 1 :06 PM CLEAT THROWER POCT GLUCOSE DEVICE Routine 06/27/2024 9 :59 AM CLEAT THROWER EGFR Routine 06/26/2024 10:21 PM CLEAT THROWER DIFFERENTIAL AUTO Routine 06/26/2024 10: 21 PM CLEAT THROWER PHOSPHORUS Routine 06/26/2024 10:21 PM CLEAT THROWER MAGNESIUM Routine 06/26/2024 10:21 PM CLEAT THROWER CBC WITH AUTO DIFFERENTIAL Routine 06/26/2024 10:21 PM CLEAT THROWER BASIC METABOLIC PANEL Routine 06/26/2024 10:21 PM CLEAT THROWER HEPATITIS B SURFACE ANTIGEN Routine 06/26/2024 10:21 PM CLEAT THROWER PHOSPHORUS Routine 06/26/2024 3:21 PM CLEAT THROWER RPR Routine 06/26/2024 3:21 PM CLEAT THROWER HEPATITIS C ANTIBODY Routine 06/26/2024 3:21 PM CLEAT THROWER HIV 1/2 ANTIBODY PLUS P24 ANTIGEN Routine 06/26/2024 3:21 PM CLEAT THROWER EGFR Routine 06/26/2024 12:16 AM CLEAT THROWER PHOSPHORUS Routine 06/26/2024 12:16 AM CLEAT THROWER MAGNESIUM Routine 06/26/2024 12:16 AM CLEAT THROWER BASIC METABOLIC PANEL Routine 06/26/2024 12:16 AM CLEAT THROWER POCT GLUCOSE DEVICE Routine 06/23/2024 1 1:36 AM CLEAT THROWER CBC WITHOUT DIFFERENTIAL Timed 06/23/2024 9:07 AM CLEAT THROWER VANCOMYCIN LEVEL TROUGH Routine 06/23/2024 9:00 AM CLEAT THROWER EGFR Routine 06/23/2024 9:00 AM CLEAT THROWER MAGNESIUM Routine 06/23/2024 9:00 AM CLEAT THROWER PHOSPHORUS Routine 06/23/2024 9:00 AM CLEAT THROWER BASIC METABOLIC PANEL Routine 06/23/2024 9:00 AM CLEAT THROWER G TO GJ-TUBE REPLACEMENT IP Routine 06/22/2024 1:24 PM CLEAT THROWER C. DIFFICILE TESTING Routine 06/21/2024 11:11 AM CLEAT THROWER INFECTION PREVENTION VRE CULTURE Routine 06/21/2024 11:10 AM CLEAT THROWER VANCOMYCIN LEVEL TROUGH Timed 06/21/2024 7:16 AM CLEAT THROWER EGFR Routine 06/21/2024 5:03 AM CLEAT THROWER DIFFERENTIAL AUTO Routine 06/21/2024 5:0 3 AM CLEAT THROWER PHOSPHORUS Timed 06/21/2024 5:03 AM CLEAT THROWER MAGNESIUM Routine 06/21/2024 5:03 AM CLEAT THROWER COMPREHENSIVE METABOLIC PANEL Routine 06/21/2024 5:03 AM CLEAT THROWER CBC WITH AUTO DIFFERENTIAL Routine 06/21/2024 5:03 AM CLEAT THROWER MSSA/MRSA (STAPHYLOCOCCUS AUREUS) CULTURE Routine 06/20/2024 10:30 PM CLEAT THROWER XR ABDOMEN AP 1 VIEW IP Routine 06/20/2024 10:29 AM CLEAT THROWER URINALYSIS, MICROSCOPIC ONLY Routine 06/19/2024 9:34 PM CLEAT THROWER URINALYSIS AND REFLEX TO MICROSCOPIC AND CULTURE Routine 06/19/2024 9:34 PM CLEAT THROWER DIFFERENTIAL AUTO Routine 06/19/2024 9:2 8 PM CLEAT THROWER CBC WITH AUTO DIFFERENTIAL Routine 06/19/2024 9:28 PM CLEAT THROWER VALPROIC ACID LEVEL, TOTAL Timed 06/19/2024 9:28 PM CLEAT THROWER LACOSAMIDE Routine 06/19/2024 9:28 PM CLEAT THROWER RESPIRATORY PATHOGEN PANEL Routine 06/19/2024 9:10 PM CLEAT THROWER AEROBIC CULTURE AND GRAM STAIN Routine 06/19/2024 6:53 PM CLEAT THROWER XR CHEST 1 VIEW IP Routine 06/19/2024 6:47 PM CLEAT THROWER RESPIRATORY PATHOGEN PANEL Routine 06/19/2024 6:46 PM CLEAT THROWER XR ABDOMEN AP 1 VIEW IP Routine 06/19/2024 4:09 PM CLEAT THROWER XR CHEST 1 VIEW IP Routine 06/19/2024 4:08 PM CLEAT THROWER EGFR Timed 06/19/2024 2:47 PM CLEAT THROWER DIFFERENTIAL AUTO Timed 06/19/2024 2:4 7 PM CLEAT THROWER PHOSPHORUS Timed 06/19/2024 2:47 PM CLEAT THROWER MAGNESIUM Timed 06/19/2024 2:47 PM CLEAT THROWER COMPREHENSIVE METABOLIC PANEL Timed 06/19/2024 2:47 PM CLEAT THROWER CBC WITH AUTO DIFFERENTIAL Timed 06/19/2024 2:47 PM CLEAT THROWER POCT GLUCOSE DEVICE Routine 06/19/2024 2 :25 PM CLEAT THROWER XR ABDOMEN AP 1 VIEW IP Routine 06/16/2024 6:16 PM CLEAT THROWER EGFR Routine 06/16/2024 12:42 PM CLEAT THROWER DIFFERENTIAL AUTO Routine 06/16/2024 12: 42 PM CLEAT THROWER PHOSPHORUS Routine 06/16/2024 12:42 PM CLEAT THROWER MAGNESIUM Routine 06/16/2024 12:42 PM CLEAT THROWER COMPREHENSIVE METABOLIC PANEL Routine 06/16/2024 12:42 PM CLEAT THROWER CBC WITH AUTO DIFFERENTIAL Routine 06/16/2024 12:42 PM CLEAT THROWER XR ABDOMEN AP 1 VIEW ED Urgent/IP Urgent 06/15/2024 1:57 AM CLEAT THROWER EGFR Routine 06/13/2024 4:59 AM CLEAT THROWER DIFFERENTIAL AUTO Routine 06/13/2024 4:5 9 AM CLEAT THROWER VALPROIC ACID LEVEL, TOTAL Routine 06/13/2024 4:59 AM CLEAT THROWER CBC WITH AUTO DIFFERENTIAL Routine 06/13/2024 4:59 AM CLEAT THROWER PHOSPHORUS Routine 06/13/2024 4:59 AM CLEAT THROWER MAGNESIUM Routine 06/13/2024 4:59 AM CLEAT THROWER COMPREHENSIVE METABOLIC PANEL Routine 06/13/2024 4:59 AM CLEAT THROWER LACOSAMIDE Routine 06/13/2024 4:59 AM CLEAT THROWER BLOOD CULTURE Routine 06/13/2024 4:59 AM CLEAT THROWER TSH Routine 06/12/2024 3:51 PM CLEAT THROWER DIFFERENTIAL AUTO Routine 06/12/2024 3:3 0 PM CLEAT THROWER CBC WITH AUTO DIFFERENTIAL Routine 06/12/2024 3:30 PM CLEAT THROWER HEMOGLOBIN A1C Routine 06/12/2024 3:30 PM CLEAT THROWER TROPONIN I HIGH-SENSITIVITY 4-HOUR Timed 06/12/2024 3:27 PM CLEAT THROWER XR CHEST 1 VIEW ED 06/12/2024 2:47 PM CLEAT THROWER URINALYSIS AND REFLEX TO MICROSCOPIC AND CULTURE STAT 06/12/2024 2:38 PM CLEAT THROWER DIFFERENTIAL AUTO STAT 06/12/2024 2:2 3 PM CLEAT THROWER CBC WITH AUTO DIFFERENTIAL STAT 06/12/2024 2:23 PM CLEAT THROWER TROPONIN I HIGH-SENSITIVITY 2-HOUR Timed 06/12/2024 1:[address] ABDOMEN PELVIS W CONTRAST ED 06/12/2024 12:22 PM CLEAT THROWER ED PERIPHERAL LINE INSERTION Routine 06/12/2024 11:50 AM CLEAT THROWER INFLUENZA A/B, RSV, AND COVID-19 PCR Routine 06/12/2024 11:39 AM CLEAT THROWER POCT CREATININE - DEVICE Routine 06/12/2024 11:29 AM CLEAT THROWER EGFR STAT 06/12/2024 11:22 AM CLEAT THROWER DIFFERENTIAL AUTO STAT 06/12/2024 11: 22 AM CLEAT THROWER TROPONIN I HIGH-SENSITIVITY SERIES (BASELINE, 2HR, 4HR, 6HR) STAT 06/12/2024 11:22 AM CLEAT THROWER LIPASE STAT 06/12/2024 11:22 AM CLEAT THROWER CBC WITH AUTO DIFFERENTIAL STAT 06/12/2024 11:22 AM CLEAT THROWER COMPREHENSIVE METABOLIC PANEL STAT 06/12/2024 11:22 AM CLEAT THROWER VALPROIC ACID LEVEL, TOTAL STAT 06/12/2024 11:22 AM CLEAT THROWER ECG 12-LEAD Routine 06/12/2024 11:01 AM CLEAT THROWER TNI WITH LIPID PANEL Routine 08/24/2017 4:57 PM CDT from Last 3 Months or Most Recently Relevant to Health Maintenance Results * POCT Rapid HIV Antibody Community Screening-Issa Eligible (07/09/2024 5:32 AM CLEAT THROWER) Rapid HIV, POC Negative Negative Lot Number [id number] QC Control Line Acceptable Blood 07/09/2024 5:32 AM CLEAT THROWER Naa Tam MD POINT OF CARE TEST ORDER NICHOLE Final Result * Sepsis Lactate w/ Reflex (07/09/2024 4:33 AM CLEAT THROWER) Pathologist [facility] Sepsis Lactate 2.0 0.7 - 2.0 mmol/L Blood 07/09/2024 4:33 AM CLEAT THROWER 07/09/2024 4:42 AM CLEAT THROWER us Naa Tam MD LAB BLOOD ORDERABLES Fin al Result Performing Organization Address City/State/[facility] Co de Phone Number [facility] Department [place] [address] * ED PERIPHERAL LINE INSERTION (07/09/2024 1:18 AM CLEAT THROWER) Narrative Cherie Damian MD - 07/09/2024 1:18 AM CLEAT THROWER Atul Barba MD 07/09/2024 1:18 AM Peripheral [...] Sepsis Lactate w/ Reflex (07/09/2024 1:15 AM CLEAT THROWER) Sepsis Lactate 2.8(H) 0.7 - 2.0 mmol/L Blood 07/09/2024 1:15 AM CLEAT THROWER 07/09/2024 1:46 AM CLEAT THROWER Result [facility] Naa Tam MD LAB BLOOD ORDERABLES Fin al Result Performing Organization Address City/[facility]/ZIP Co de Phone Number [facility] Department [place] [address] * RPR Blood (07/09/2024 1:15 AM CLEAT THROWER) Pathologist [facility] RPR Nonreactive Nonreactive Blood 07/09/2024 1:15 AM CLEAT THROWER 07/09/2024 1:40 AM CLEAT THROWER Result [facility] Naa Tam MD LAB MICROBIOLOGY - GENER AL ORDERABLES Final Result Performing Organization Address [facility] de Phone Number [facility] Department [place] [address] * N. gonorrhoeae/C. trachomatis Amplification Urine (07/09/2024 1:02 AM CLEAT THROWER) Pathologist [facility] C. trachomatis Not Detected Not Detected [facility] N. gonorrhoeae Not Detected Not Detected [facility] Comment: Interpretive Data This assay detects Chlamydia trachomatis and Neisseria gonorrhoeae by nucleic acid amplification testing (NAAT). This assay has been cleared by the [place] Food and Drug administration. The performance characteristics of this test have been verified by the [facility] Molecular Infectious Disease laboratory. The performance characteristics of this test have not been evaluated in individuals less than 14 years of age. Current Interpretive Data last revised 2023. Urine (None) 07/09/2024 1:02 AM CLEAT THROWER 07/09/2024 1:35 AM CLEAT THROWER Result [facility] Naa Tam MD LAB MICROBIOLOGY - GENER AL ORDERABLES Final Result [facility] Department [place] [address] [facility] * (ABNORMAL) Urinalysis reflex to microscopic and culture Urine, clean voided (07/09/2024 1:02 AM CLEAT THROWER) Color, ur Straw Yellow Clarity, ur Clear Clear [facility] Specific gravity, ur >1.042(H) 1.003 - 1.030 [facility] pH, urine 7.5 [facility] Comment: Interpretive Data U rine pH is affected by diet, medications, systemic acid-base disturbances, and renal tubular function. pH may affect urinary stone formation. For example, urine pH below 6.0 may help reduce the tendency for calcium phosphate stones and pH greater than 6.0 may reduce the tendency for uric acid stone formation. Source: [facility] Current Interpretive Data was last revised on 2017 Protein, ur ql Trace Negative [facility] Glucose, ur ql Negative Negative [facility] Ketones, ur Negative Negative [facility] Bilirubin, ur Negative Negative [facility] Blood, ur Negative Negative [facility] Urobilinogen, ur <2.0 <2.0 mg/dL [facility] Nitrite, ur Negative Negative [facility] Leukocyte esterase, ur Negative Negative [facility] UA reflex comment Reflex conditions for microscopic UA and culture not met. [facility] Urine, clean voided 07/09/2024 1:02 AM CLEAT THROWER 07/09/2024 1:15 AM CLEAT THROWER us Naa Tam MD LAB MICROBIOLOGY - GENER AL ORDERABLES Final Result Performing Organization Address [facility]/ZIP Co de Phone Number [facility] Department [place] [address] * ED PERIPHERAL LINE INSERTION (07/08/2024 10:11 PM CLEAT THROWER) Narrative Tri Martinez MD - 07/08/2024 10:11 PM CLEAT THROWER Atul Barba MD 07/08/2024 10:12 PM Peripheral [...] Abdomen Pelvis W Contrast (07/08/2024 9:55 PM CLEAT THROWER) Anatomical Region Laterality Modality Body N/A Computed Tomogra phy 07/08/2024 10:3 2 PM CLEAT THROWER Impressions 07/09/2024 7:23 AM CLEAT THROWER Liquid stool within the colon, indicative of diarrheal state. Otherwise, no acute abnormalities in the abdomen or pelvis. Dictated by: Delia Morton MD The radiology attending physician has personally reviewed this study, and had reviewed and/or edited this written report and agrees with it. Electronically signed by: Marlon Kohler M.D. Narrative 07/09/2024 7:23 AM CLEAT THROWER EXAMINATION: Computed tomography of the chest, abdomen [...] Sepsis Lactate w/ Reflex (07/08/2024 8:56 PM CLEAT THROWER) Pathologist [facility] Sepsis Lactate 2.4(H) 0.7 - 2.0 mmol/L Blood 07/08/2024 8:56 PM CLEAT THROWER 07/08/2024 9:24 PM CLEAT THROWER us Naa Tam MD LAB BLOOD ORDERABLES Fin al Result [facility] Department [place] [address] * eGFR (07/08/2024 8:56 PM CLEAT THROWER) Pathologist [facility] eGFR >90 >=60 mL/min/1. 73 m2 [...] last reviewed 2021. Blood 07/08/2024 8:56 PM CLEAT THROWER 07/08/2024 9:26 PM CLEAT THROWER us Naa Tam MD LAB BLOOD ORDERABLES Fin al Result [facility] Department [place] [address] * Differential, auto (07/08/2024 8:56 PM CLEAT THROWER) Neutrophil abs 4.4 1.5 - 6.5 K/cumm Imm gran abs 0.0 0.0 - 0.1 K/cumm [facility] Lymphocyte abs 2.6 0.8 - 3.3 K/cumm [facility] Monocyte abs 0.5 0.2 - 0.8 K/cumm [facility] Eosinophil abs 0.5 0.0 - 0.5 K/cumm [facility] Basophil abs 0.0 0.0 - 0.1 K/cumm [facility] Neutrophil pct 54.7 % [facility] Comment: Interpretive Data Percent cell count reference ranges are not reported, since discordance with absolute values may lead to misinterpretation of CBC data. Current Interpretive Data was last revised on 2017. Imm gran pct 0.2 % [facility] Comment: Interpretive Data Percent cell count reference ranges are not reported, since discordance with absolute values may lead to misinterpretation of CBC data. Current Interpretive Data was last revised on 2017. Lymphocyte pct 32.1 % [facility] Comment: Interpretive Data Percent cell count reference ranges are not reported, since discordance with absolute values may lead to misinterpretation of CBC data. Current Interpretive Data was last revised on 2017. Monocyte pct 6.6 % [facility] Comment: Interpretive Data Percent cell count reference ranges are not reported, since discordance with absolute values may lead to misinterpretation of CBC data. Current Interpretive Data was last revised on 2017. Eosinophil pct 6.0 % [facility] Comment: Interpretive Data Percent cell count reference ranges are not reported, since discordance with absolute values may lead to misinterpretation of CBC data. Current Interpretive Data was last revised on 2017. Basophil pct 0.4 % [facility] Comment: Interpretive Data Percent cell count reference ranges are not reported, since discordance with absolute values may lead to misinterpretation of CBC data. Current Interpretive Data was last revised on 2017. Blood 07/08/2024 8:56 PM CLEAT THROWER 07/08/2024 9:27 PM CLEAT THROWER us Naa Tam MD LAB BLOOD ORDERABLES Fin al Result [facility] Department [place] [address] * Respiratory pathogen panel Nasopharyngeal (07/08/2024 8:56 PM CLEAT THROWER) Pathologist [facility] Influenza A RNA Not Detected Not Detected Influenza B RNA Not Detected Not Detected [facility] RSV RNA Not Detected Not Detected [facility] COVID-19 RNA Not Detected Not Detected [facility] Coronavirus 229E RNA Not Detected Not Detected [facility] Coronavirus HKU1 RNA Not Detected Not Detected [facility] Coronavirus NL63 RNA Not Detected Not Detected [facility] Coronavirus OC43 RNA Not Detected Not Detected [facility] Adenovirus DNA Not Detected Not Detected [facility] Metapneumovirus RNA Not Detected Not Detected [facility] Rhinovirus/Enterov irus RNA Not Detected Not Detected [facility] Parainfluenza 1 RNA Not Detected Not Detected [facility] Parainfluenza 2 RNA Not Detected Not Detected [facility] Parainfluenza 3 RNA Not Detected Not Detected [facility] Parainfluenza 4 RNA Not Detected Not Detected [facility] B. pertussis DNA Not Detected Not Detected [facility] B. parapertussis DNA Not Detected Not Detected [facility] C. pneumoniae DNA Not Detected Not Detected [facility] M. 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 The performance of additional specimen types has been assessed by the performing laboratory. The performance characteristics of this assay have been determined by [facility] Molecular Infectious Disease Laboratory. Current interpretive data was last revised on 22. us Naa Tam MD LAB MICROBIOLOGY - [facility] ORDERABLES Final Result [facility] Department [place] [address] * (ABNORMAL) CBC with auto differential (07/08/2024 8:56 PM CLEAT THROWER) WBC 8.0 3.8 - 9.9 K/cumm Hgb 14.4 13.0 - 17.5 g/dL [facility] Hct 43.3 38.9 - 50.3 % [facility] Plt 236 150 - 400 K/cumm [facility] MPV 12.4(H) 9.1 - 12.3 fL [facility] RBC 4.49 4.30 - 5.80 M/cumm [facility] MCV 96.4 81.3 - 96.4 fL [facility] MCH 32.1 27.1 - 33.3 pg [facility] MCHC 33.3 32.3 - 35.7 g/dL [facility] RDW CV 13.5 11.1 - 14.9 % [facility] RDW SD 47.9 35.7 - 48.1 fL [facility] NRBC abs 0.00 0.00 - 0.01 K/cumm [facility] Blood 07/08/2024 8:56 PM CLEAT THROWER 07/08/2024 9:27 PM CLEAT THROWER us Naa Tam MD LAB BLOOD ORDERABLES Fin al Result Performing Organization Address City/[facility]/ZIP Co de Phone Number [facility] [address] [place] [address] * Lipase (07/08/2024 8:56 PM CLEAT THROWER) Pathologist [facility] Lipase 32 10 - 99 Units/L Blood 07/08/2024 8:56 PM CLEAT THROWER 07/08/2024 9:26 PM CLEAT THROWER us Naa Tam MD LAB BLOOD ORDERABLES Fin al Result Performing Organization Address [facility] de Phone Number [facility] of [address] [place] [address] * (ABNORMAL) Comprehensive metabolic panel (07/08/2024 8:56 PM CLEAT THROWER) [facility] Sodium 141 135 - 145 mmol/L Potassium, pl 4.5 3.3 - 4.9 mmol/L [facility] Chloride 102 97 - 110 mmol/L [facility] CO2 28 22 - 32 mmol/L [facility] Anion gap 11 2 - 15 mmol/L [facility] BUN 15 6 - 25 mg/dL [facility] Creatinine 0.63(L) 0.80 - 1.30 mg/dL [facility] Glucose 110 70 - 199 mg/dL [facility] Comment: Interpretive Data Fasting glucose >/= 126 [...] 2022. Calcium 10.1 8.5 - 10.3 mg/dL [facility] Bilirubin, total 0.2 0.1 - 1.2 mg/dL [facility] Protein, pl 8.0 6.5 - 8.5 g/dL [facility] Albumin 4.1 3.5 - 5.0 g/dL [facility] Alk phos 110 40 - 130 Units/L [facility] ALT 28 7 - 55 Units/L [facility] AST 26 10 - 50 Units/L [facility] Blood 07/08/2024 8:56 PM CLEAT THROWER 07/08/2024 9:26 PM CLEAT THROWER us Naa Tam MD LAB BLOOD ORDERABLES Fin al Result Performing Organization Address [facility] Co de Phone Number [facility] Department [place] [address] * ECG 12-LEAD (07/08/2024 8:28 PM CLEAT THROWER) Narrative [facility] - 07/08/2024 8:28 PM CLEAT THROWER Naa Tam MD 07/08/2024 8:30 PM ECG [...] ORDERABLES Final Re sult Performing Organization Address [facility]/ZIP Co de Phone Number [facility] * XR Chest 1 View (07/08/2024 8:18 PM CLEAT THROWER) Anatomical Region Laterality Modality Body, Chest N/A Computed Radiogr aphy 07/08/2024 8:28 PM CLEAT THROWER Impressions 07/08/2024 9:56 PM CLEAT THROWER Comparison is made to chest graft dated [...] Sekou Wolf M.D. Narrative 07/08/2024 9:56 PM CLEAT THROWER EXAMINATION: 1 view chest radiograph Procedure Note [...] Result * POCT glucose (06/28/2024 4:24 PM CLEAT THROWER) Glucose, POC 191 70 - 199 mg/dL Blood 06/28/2024 4:24 PM CLEAT THROWER 06/28/2024 4:24 PM CLEAT THROWER us Kami Dupont MD LAB POCT ORDERABLES - DEV ICE Final Result [facility] Department [place] [address] * POCT glucose (06/28/2024 12:30 PM CLEAT THROWER) Glucose, POC 197 70 - 199 mg/dL Blood 06/28/2024 12:3 0 PM CLEAT THROWER 06/28/2024 12:30 PM CLEAT THROWER Kami Dupont MD LAB POCT ORDERABLES - DEV ICE Final Result Performing Organization Address [facility] Co de Phone Number [facility] [address] [place] [address] * POCT glucose (06/28/2024 7:43 AM CLEAT THROWER) Glucose, POC 191 70 - 199 mg/dL Blood 06/28/2024 7:43 AM CLEAT THROWER 06/28/2024 7:43 AM CLEAT THROWER Kami Dupont MD LAB POCT ORDERABLES - DEV ICE Final Result Performing Organization Address [facility] de Phone Number [facility] [address] [place] [address] * POCT glucose (06/28/2024 4:01 AM CLEAT THROWER) Glucose, POC 173 70 - 199 mg/dL Blood 06/28/2024 4:01 AM CLEAT THROWER 06/28/2024 4:01 AM CLEAT THROWER Kami Dupont MD LAB POCT ORDERABLES - DEV ICE Final Result Performing Organization Address [facility] Co de Phone Number [facility] [address] [place] [address] * (ABNORMAL) POCT glucose (06/27/2024 11:28 PM CLEAT THROWER) Glucose, POC 220(H) 70 - 199 mg/dL Comment:Use Protocol Glucose comment 1 Use Protocol [facility] Blood 06/27/2024 11:2 8 PM CLEAT THROWER 06/27/2024 11:28 PM CLEAT THROWER Kami Dupont MD LAB POCT ORDERABLES - DEV ICE Final Result Performing Organization Address [facility] Co de Phone Number [facility] Department [place] [address] * eGFR (06/27/2024 9:30 PM CLEAT THROWER) eGFR >90 >=60 mL/min/1. 73 m2 Comment: [...] last reviewed 2021. Blood 06/27/2024 9:30 PM CLEAT THROWER 06/27/2024 9:45 PM CLEAT THROWER Kami Dupont MD LAB BLOOD ORDERABLES Lulu l Result Performing Organization Address City/[facility]/ZIP Co de Phone Number [facility] [place] [address] * Phosphorus (06/27/2024 9:30 PM CLEAT THROWER) Phosphorus, pl 3.3 2.3 - 4.5 mg/dL Comment:Repeated and Verifie d Blood 06/27/2024 9:30 PM CLEAT THROWER 06/27/2024 9:45 PM CLEAT THROWER Kami Dupont MD LAB BLOOD ORDERABLES Lulu l Result Performing Organization Address City/[facility]/ZIP Co de Phone Number [facility] Department of [address] [place] [address] * Magnesium (06/27/2024 9:30 PM CLEAT THROWER) Pathologist [facility] Magnesium 1.9 1.4 - 2.5 mg/dL Blood 06/27/2024 9:30 PM CLEAT THROWER 06/27/2024 9:45 PM CLEAT THROWER Kami Dupont MD LAB BLOOD ORDERABLES Lulu l Result Performing Organization Address [facility] de Phone Number [facility] [place] [address] * (ABNORMAL) Basic metabolic panel (06/27/2024 9:30 PM CLEAT THROWER) [facility] Sodium 141 135 - 145 mmol/L Potassium, pl 4.4 3.3 - 4.9 mmol/L [facility] Chloride 105 97 - 110 mmol/L [facility] CO2 28 22 - 32 mmol/L [facility] Anion gap 8 2 - 15 mmol/L [facility] BUN 9 6 - 25 mg/dL [facility] Creatinine 0.47(L) 0.80 - 1.30 mg/dL [facility] Glucose 208(H) 70 - 199 mg/dL [facility] Comment: Interpretive Data Fasting glucose >/= 126 [...] 2022. Calcium 8.9 8.5 - 10.3 mg/dL [facility] Blood 06/27/2024 9:30 PM CLEAT THROWER 06/27/2024 9:45 PM CLEAT THROWER Kami Dupont MD LAB BLOOD ORDERABLES Lulu l Result Performing Organization Address [facility] Co de Phone Number [facility] [address] [place] [address] * POCT glucose (06/27/2024 8:39 PM CLEAT THROWER) Glucose, POC 195 70 - 199 mg/dL Blood 06/27/2024 8:39 PM CLEAT THROWER 06/27/2024 8:39 PM CLEAT THROWER Kami Dupont MD LAB POCT ORDERABLES - DEV ICE Final Result Performing Organization Address [facility] de Phone Number [facility] [address] [place] [address] * POCT glucose (06/27/2024 5:10 PM CLEAT THROWER) Glucose, POC 194 70 - 199 mg/dL Blood 06/27/2024 5:10 PM CLEAT THROWER 06/27/2024 5:10 PM CLEAT THROWER Kami Dupont MD LAB POCT ORDERABLES - DEV ICE Final Result Performing Organization Address [facility] Co de Phone Number [facility] [address] [place] [address] * (ABNORMAL) POCT glucose (06/27/2024 4:27 PM CLEAT THROWER) Glucose, POC 224(H) 70 - 199 mg/dL Blood 06/27/2024 4:27 PM CLEAT THROWER 06/27/2024 4:27 PM CLEAT THROWER Kami Dupont MD LAB POCT ORDERABLES - DEV ICE Final Result Performing Organization Address City/[facility] Co de Phone Number [facility] [address] [place] [address] * POCT glucose (06/27/2024 1:06 PM CLEAT THROWER) Glucose, POC 173 70 - 199 mg/dL Blood 06/27/2024 1:06 PM CLEAT THROWER 06/27/2024 1:06 PM CLEAT THROWER Kami Dupont MD LAB POCT ORDERABLES - DEV ICE Final Result Performing Organization Address [facility] de Phone Number [facility] [place] [address] * POCT glucose (06/27/2024 9:59 AM CLEAT THROWER) Glucose, POC 158 70 - 199 mg/dL Blood 06/27/2024 9:59 AM CLEAT THROWER 06/27/2024 9:59 AM CLEAT THROWER Kami Dupont MD LAB POCT ORDERABLES - DEV ICE Final Result Performing Organization Address [facility] Co de Phone Number [facility] Department [place] [address] * eGFR (06/26/2024 10:21 PM CLEAT THROWER) eGFR >90 >=60 mL/min/1. 73 m2 Comment: [...] reviewed 2021. Blood 06/26/2024 10:2 1 PM CLEAT THROWER 06/26/2024 10:53 PM CLEAT THROWER us Kami Dupont MD LAB BLOOD ORDERABLES Lulu coley Result [facility] Department [place] [address] * Differential, auto (06/26/2024 10:21 PM CLEAT THROWER) Neutrophil abs 5.0 1.5 - 6.5 K/cumm Imm gran abs 0.0 0.0 - 0.1 K/cumm [facility] Lymphocyte abs 2.4 0.8 - 3.3 K/cumm [facility] Monocyte abs 0.8 0.2 - 0.8 K/cumm [facility] Eosinophil abs 0.4 0.0 - 0.5 K/cumm [facility] Basophil abs 0.0 0.0 - 0.1 K/cumm [facility] Neutrophil pct 58.2 % [facility] Comment: Interpretive Data Percent cell count reference ranges are not reported, since discordance with absolute values may lead to misinterpretation of CBC data. Current Interpretive Data was last revised on 2017. Imm gran pct 0.3 % [facility] Comment: Interpretive Data Percent cell count reference ranges are not reported, since discordance with absolute values may lead to misinterpretation of CBC data. Current Interpretive Data was last revised on 2017. Lymphocyte pct 27.9 % [facility] Comment: Interpretive Data Percent cell count reference ranges are not reported, since discordance with absolute values may lead to misinterpretation of CBC data. Current Interpretive Data was last revised on 2017. Monocyte pct 9.2 % [facility] Comment: Interpretive Data Percent cell count reference ranges are not reported, since discordance with absolute values may lead to misinterpretation of CBC data. Current Interpretive Data was last revised on 2017. Eosinophil pct 4.1 % [facility] Comment: Interpretive Data Percent cell count reference ranges are not reported, since discordance with absolute values may lead to misinterpretation of CBC data. Current Interpretive Data was last revised on 2017. Basophil pct 0.3 % [facility] Comment: Interpretive Data Percent cell count reference ranges are not reported, since discordance with absolute values may lead to misinterpretation of CBC data. Current Interpretive Data was last revised on 2017. Blood 06/26/2024 10:2 1 PM CLEAT THROWER 06/26/2024 10:53 PM CLEAT THROWER us Kami Dupont MD LAB BLOOD ORDERABLES Lulu coley Result [facility] Department [place] [address] * (ABNORMAL) CBC with auto differential (06/26/2024 10:21 PM CLEAT THROWER) WBC 8.6 3.8 - 9.9 K/cumm Hgb 13.1 13.0 - 17.5 g/dL [facility] Hct 39.1 38.9 - 50.3 % [facility] Plt 173 150 - 400 K/cumm [facility] MPV 13.1(H) 9.1 - 12.3 fL [facility] RBC 4.07(L) 4.30 - 5.80 M/cumm [facility] MCV 96.1 81.3 - 96.4 fL [facility] MCH 32.2 27.1 - 33.3 pg [facility] MCHC 33.5 32.3 - 35.7 g/dL [facility] RDW CV 13.5 11.1 - 14.9 % [facility] RDW SD 47.8 35.7 - 48.1 fL [facility] NRBC abs 0.00 0.00 - 0.01 K/cumm [facility] Blood 06/26/2024 10:2 1 PM CLEAT THROWER 06/26/2024 10:53 PM CLEAT THROWER Kami Dupont MD LAB BLOOD ORDERABLES Lulu l Result Performing Organization Address [facility] Co de Phone Number [facility] [address] [place] [address] * Hepatitis B Surface Antigen Blood (06/26/2024 10:21 PM CLEAT THROWER) HepBsAg Nonreactive Nonreactive Blood 06/26/2024 10:2 1 PM CLEAT THROWER 06/26/2024 10:53 PM CLEAT THROWER Kami Dupont MD LAB MICROBIOLOGY - GENERA L ORDERABLES Final Result Performing Organization Address [facility] de Phone Number [facility] [address] [place] [address] * (ABNORMAL) Phosphorus (06/26/2024 10:21 PM CLEAT THROWER) Phosphorus, pl <0.7(L) 2.3 - 4.5 mg/dL Comment:Repeated and Verifie d Blood 06/26/2024 10:2 1 PM CLEAT THROWER 06/26/2024 10:53 PM CLEAT THROWER Kami Dupont MD LAB BLOOD ORDERABLES Lulu l Result Performing Organization Address [facility] [place] [address] * Magnesium (06/26/2024 10:21 PM CLEAT THROWER) Magnesium 2.0 1.4 - 2.5 mg/dL Blood 06/26/2024 10:2 1 PM CLEAT THROWER 06/26/2024 10:53 PM CLEAT THROWER Kami Dupont MD LAB BLOOD ORDERABLES Lulu coley Result Performing Organization Address City/[facility]/ZIP Co de Phone Number [facility] Department [place] [address] * (ABNORMAL) Basic metabolic panel (06/26/2024 10:21 PM CLEAT THROWER) [facility] Sodium 141 135 - 145 mmol/L Potassium, pl 4.7 3.3 - 4.9 mmol/L [facility] Chloride 106 97 - 110 mmol/L [facility] CO2 28 22 - 32 mmol/L [facility] Anion gap 7 2 - 15 mmol/L [facility] BUN 11 6 - 25 mg/dL [facility] Creatinine 0.47(L) 0.80 - 1.30 mg/dL [facility] Glucose 213(H) 70 - 199 mg/dL [facility] Comment: Interpretive Data Fasting glucose >/= 126 [...] 2022. Calcium 9.3 8.5 - 10.3 mg/dL [facility] Blood 06/26/2024 10:2 1 PM CLEAT THROWER 06/26/2024 10:53 PM CLEAT THROWER Kami Dupont MD LAB BLOOD ORDERABLES Lulu l Result Performing Organization Address [facility]/ZIP Co de Phone Number [facility] Department [place] [address] * HIV 1/2 Antibody plus p24 Antigen Blood (06/26/2024 3:21 PM CLEAT THROWER) HIV 1/2 ab + p24 ag Nonreactive Nonreactive Comment:Nonreactive for HIV- 1 antigen and HIV-1/HIV-2 antibodies. No laboratory evidence of HIV infection. If acute HIV infection is suspected, consider testing for HIV-1 RNA. Current interpretive data was last revised on 22. Blood 06/26/2024 3:21 PM CLEAT THROWER 06/26/2024 3:41 PM CLEAT THROWER Kami Dupont MD LAB MICROBIOLOGY - GENERA L ORDERABLES Final Result Performing Organization Address [facility] Co de Phone Number [facility] [address] [place] [address] * Hepatitis C antibody Blood (06/26/2024 3:21 PM CLEAT THROWER) Hep C Ab Nonreactive Nonreactive Comment:Antibodies to HCV no t detected. Does NOT exclude the possibility of recent exposure to HCV. Current interpretive data was last revised on 22 Blood 06/26/2024 3:21 PM CLEAT THROWER 06/26/2024 3:41 PM CLEAT THROWER Kami Dupont MD LAB MICROBIOLOGY - GENERA L ORDERABLES Final Result Performing Organization Address [facility] Co de Phone Number [facility] of [address] [place] [address] * RPR Blood (06/26/2024 3:21 PM CLEAT THROWER) RPR Nonreactive Nonreactive Blood 06/26/2024 3:21 PM CLEAT THROWER 06/26/2024 3:41 PM CLEAT THROWER Kami Dupont MD LAB MICROBIOLOGY - GENERA L ORDERABLES Final Result Performing Organization Address [facility] Co de Phone Number [facility] [address] [place] [address] * (ABNORMAL) Phosphorus (06/26/2024 3:21 PM CLEAT THROWER) Phosphorus, pl 0.7(L) 2.3 - 4.5 mg/dL Comment:Repeated and Verifie d Blood 06/26/2024 3:21 PM CLEAT THROWER 06/26/2024 3:41 PM CLEAT THROWER Kami Dupont MD LAB BLOOD ORDERABLES Ullu l Result Performing Organization Address City/[facility]/ZIP Co de Phone Number [facility] [address] [place] [address] * eGFR (06/26/2024 12:16 AM CLEAT THROWER) eGFR >90 >=60 mL/min/1. 73 m2 Comment: [...] reviewed 2021. Blood 06/26/2024 12:1 6 AM CLEAT THROWER 06/26/2024 12:39 AM CLEAT THROWER us Patricia Bryant MD LAB BLOOD ORDERABLES Final Res ult Performing Organization Address City/[facility]/ZIP Co de Phone Number [facility] Department of [employer] [place] [address] * (ABNORMAL) Phosphorus (06/26/2024 12:16 AM CLEAT THROWER) [facility] Phosphorus, pl <0.7(L) 2.3 - 4.5 mg/dL Comment:Repeated and Verifie d Blood 06/26/2024 12:1 6 AM CLEAT THROWER 06/26/2024 12:39 AM CLEAT THROWER Patricia Bryant MD LAB BLOOD ORDERABLES Final Res ult Performing Organization Address City/[facility]/ZIP Co de Phone Number [facility] Department [place] [address] * Magnesium (06/26/2024 12:16 AM CLEAT THROWER) [facility] Magnesium 1.9 1.4 - 2.5 mg/dL Blood 06/26/2024 12:1 6 AM CLEAT THROWER 06/26/2024 12:39 AM CLEAT THROWER Patricia Bryant MD LAB BLOOD ORDERABLES Final Res ult Performing Organization Address [facility] de Phone Number [facility] Department [place] [address] * (ABNORMAL) Basic metabolic panel (06/26/2024 12:16 AM CLEAT THROWER) [facility] Sodium 142 135 - 145 mmol/L Potassium, pl 4.4 3.3 - 4.9 mmol/L [facility] Comment:Hemolyzed; Potassium value may be falsely elevated by as much as 0.3-0.5 mmol/L. Suggest redraw and reanalysis. Chloride 109 97 - 110 mmol/L [facility] CO2 29 22 - 32 mmol/L [facility] Anion gap 4 2 - 15 mmol/L [facility] BUN 13 6 - 25 mg/dL [facility] Creatinine 0.53(L) 0.80 - 1.30 mg/dL [facility] Glucose 177 70 - 199 mg/dL [facility] Comment: Interpretive Data Fasting glucose >/= 126 [...] 2022. Calcium 9.0 8.5 - 10.3 mg/dL [facility] Blood 06/26/2024 12:1 6 AM CLEAT THROWER 06/26/2024 12:39 AM CLEAT THROWER Patricia Bryant MD LAB BLOOD ORDERABLES Final Res ult Performing Organization Address [facility] de Phone Number [facility] Department [place] [address] * POCT glucose (06/23/2024 11:36 AM CLEAT THROWER) Glucose, POC 95 70 - 199 mg/dL Blood 06/23/2024 11:3 6 AM CLEAT THROWER 06/23/2024 11:36 AM CLEAT THROWER Patricia Bryant MD LAB POCT ORDERABLES - DEVICE F inal Result Performing Organization Address [facility] de Phone Number [facility] Department [place] [address] * (ABNORMAL) CBC without differential (06/23/2024 9:07 AM CLEAT THROWER) WBC 4.7 3.8 - 9.9 K/cumm Hgb 12.5(L) 13.0 - 17.5 g/dL [facility] Hct 37.4(L) 38.9 - 50.3 % [facility] Plt 145(L) 150 - 400 K/cumm [facility] MPV 12.6(H) 9.1 - 12.3 fL [facility] RBC 3.94(L) 4.30 - 5.80 M/cumm [facility] MCV 94.9 81.3 - 96.4 fL [facility] MCH 31.7 27.1 - 33.3 pg [facility] MCHC 33.4 32.3 - 35.7 g/dL [facility] RDW CV 12.9 11.1 - 14.9 % [facility] RDW SD 45.1 35.7 - 48.1 fL [facility] NRBC abs 0.00 0.00 - 0.01 K/cumm [facility] Blood 06/23/2024 9:07 AM CLEAT THROWER 06/23/2024 9:28 AM CLEAT THROWER us Patricia Bryant MD LAB BLOOD ORDERABLES Final Res ult [facility] [place] [address] * eGFR (06/23/2024 9:00 AM CLEAT THROWER) eGFR >90 >=60 mL/min/1. 73 m2 Comment: [...] last reviewed 2021. Blood 06/23/2024 9:00 AM CLEAT THROWER 06/23/2024 10:59 AM CLEAT THROWER us Patricia Bryant MD LAB BLOOD ORDERABLES Final Res ult Performing Organization Address City/[facility] [place] [address] * Phosphorus (06/23/2024 9:00 AM CLEAT THROWER) Phosphorus, pl 2.3 2.3 - 4.5 mg/dL Blood 06/23/2024 9:00 AM CLEAT THROWER 06/23/2024 10:59 AM CLEAT THROWER us Patricia Bryant MD LAB BLOOD ORDERABLES Final Res ult Performing Organization Address [facility] de Phone [place] [id number] * Magnesium (06/23/2024 9:00 AM CLEAT THROWER) Magnesium 1.7 1.4 - 2.5 mg/dL Blood 06/23/2024 9:00 AM CLEAT THROWER 06/23/2024 10:59 AM CLEAT THROWER us Patricia Bryant MD LAB BLOOD ORDERABLES Final Res ult Performing Organization Address [facility] [place] [address] * Vancomycin level trough (06/23/2024 9:00 AM CLEAT THROWER) Vancomycin trough 15.2 10.0 - 20.0 mcg/mL Blood 06/23/2024 9:00 AM CLEAT THROWER 06/23/2024 10:59 AM CLEAT THROWER Result Rose Bryant MD LAB BLOOD ORDERABLES Final Res ult Performing Organization Address [facility] Co de Phone [place] [address] * (ABNORMAL) Basic metabolic panel (06/23/2024 9:00 AM CLEAT THROWER) Sodium 143 135 - 145 mmol/L Potassium, pl 3.7 3.3 - 4.9 mmol/L [facility] Chloride 108 97 - 110 mmol/L [facility] CO2 28 22 - 32 mmol/L [facility] Anion gap 7 2 - 15 mmol/L [facility] BUN 3(L) 6 - 25 mg/dL [facility] Creatinine 0.50(L) 0.80 - 1.30 mg/dL [facility] Glucose 271(H) 70 - 199 mg/dL [facility] Comment: Interpretive Data Fasting glucose >/= 126 [...] 2022. Calcium 9.0 8.5 - 10.3 mg/dL [facility] Blood 06/23/2024 9:00 AM CLEAT THROWER 06/23/2024 10:59 AM CLEAT THROWER us Patricia Bryant MD LAB BLOOD ORDERABLES Final Res ult [facility] Department [place] [address] * IR G To GJ-Tube Replacement (06/22/2024 1:24 PM CLEAT THROWER) Anatomical Region Laterality Modality Body N/A X-Ray Angiograph y 06/22/2024 1:47 PM CLEAT THROWER Impressions 06/22/2024 4:13 PM CLEAT THROWER Successful percutaneous 18 Fr 45 cm gastrojejunostomy [...] Sean Hillman M.D. Narrative 06/22/2024 4:13 PM CLEAT THROWER EXAMINATION: GASTROJEJUNOSTOMY TUBE EXCHANGE HISTORY/INDICATION: 64 yo [...] procedure. TECHNIQUE: Prior to beginning the procedure, [place] Protocol was performed to confirm the patient's [...] placed in the proximal jejunum. A 18 [place] Islander, 45 cm long JELLY single/double lumen [...] procedure. TECHNIQUE: Prior to beginning the procedure, [place] Protocol was performed to confirm the patient's [...] placed in the proximal jejunum. A 18 [place] Island[place], 45 cm long JELLY single/double lumen [...] by: Sean Hillman M.D. Patricia Bryant MD [facility] IR PROCEDURES Final Result * C. difficile testing Stool (06/21/2024 11:11 AM CLEAT THROWER) [facility] Result Negative Negative Toxin Result Negative Negative [facility] C. diff result Negative, free toxin Negative, free toxin [facility] C. diff interp Negative for toxigenic Clostridioides (Clostridium) difficile. Analysis was performed using a glutamate dehydrogenase antigen detection assay combined with a C. difficile toxin detection assay. [facility] Stool 06/21/2024 11:1 1 AM CLEAT THROWER 06/21/2024 12:55 PM CLEAT THROWER Narrative [facility] - 06/21/2024 2:38 PM CLEAT THROWER Testing for C. difficile is not recommended within 4 days of a negative result, 10 days of a positive, or 24 hours after laxative administration. If this order is clinically indicated, contact the lab and enter the passcode to complete this order.->[id number] Patricia Bryant MD LAB MICROBIOLOGY - GENERAL ORD ERABLES Final Result Performing Organization Address City/[facility]/ZIP Co de Phone Number [facility] Department [place] [address] * Infection Prevention VRE Culture Stool (06/21/2024 11:10 AM CLEAT THROWER) Report Final Report: Negative Stool 06/21/2024 11:1 0 AM CLEAT THROWER 06/21/2024 2:41 PM CLEAT THROWER Narrative [facility] 06/23/2024 11:15 PM CLEAT THROWER Surveillance culture for Infection Prevention purposes only; results indicate colonization, not infection requiring treatment. Testing performed by [facility] ([phone]). Patricia Bryant MD LAB MICROBIOLOGY - GENERAL ORD ERABLES Final Result [facility] Department [place] [address] * Vancomycin level trough Draw trough 30 minutes prior to 4th dose. (06/21/2024 7:16 AM CLEAT THROWER) Vancomycin trough 16.8 10.0 - 20.0 mcg/mL Blood 06/21/2024 7:16 AM CLEAT THROWER 06/21/2024 7:27 AM CLEAT THROWER Narrative [facility] - 06/21/2024 8:10 AM CLEAT THROWER Draw trough 30 minutes prior to 4th dose. Patricia Bryant MD LAB BLOOD ORDERABLES Final Res ult Performing Organization Address City/[facility] Co de Phone Number [facility] [place] [address] * eGFR (06/21/2024 5:03 AM CLEAT THROWER) Pathologist [facility] eGFR >90 >=60 mL/min/1. 73 m2 [...] last reviewed 2021. Blood 06/21/2024 5:03 AM CLEAT THROWER 06/21/2024 5:14 AM CLEAT THROWER Patricia Bryant MD LAB BLOOD ORDERABLES Final Res ult Performing Organization Address City/[facility]/ZIP Co de Phone Number [facility] Department [place] [address] * Differential, auto (06/21/2024 5:03 AM CLEAT THROWER) Pathologist [facility] Neutrophil abs 1.7 1.5 - 6.5 K/cumm Imm gran abs 0.0 0.0 - 0.1 K/cumm [facility] Lymphocyte abs 1.7 0.8 - 3.3 K/cumm [facility] Monocyte abs 0.6 0.2 - 0.8 K/cumm [facility] Eosinophil abs 0.3 0.0 - 0.5 K/cumm [facility] Basophil abs 0.0 0.0 - 0.1 K/cumm [facility] Neutrophil pct 38.8 % [facility] Comment: Interpretive Data Percent cell count reference ranges are not reported, since discordance with absolute values may lead to misinterpretation of CBC data. Current Interpretive Data was last revised on 2017. Imm gran pct 0.2 % [facility] Comment: Interpretive Data Percent cell count reference ranges are not reported, since discordance with absolute values may lead to misinterpretation of CBC data. Current Interpretive Data was last revised on 2017. Lymphocyte pct 40.5 % [facility] Comment: Interpretive Data Percent cell count reference ranges are not reported, since discordance with absolute values may lead to misinterpretation of CBC data. Current Interpretive Data was last revised on 2017. Monocyte pct 13.4 % [facility] Comment: Interpretive Data Percent cell count reference ranges are not reported, since discordance with absolute values may lead to misinterpretation of CBC data. Current Interpretive Data was last revised on 2017. Eosinophil pct 6.6 % [facility] Comment: Interpretive Data Percent cell count reference ranges are not reported, since discordance with absolute values may lead to misinterpretation of CBC data. Current Interpretive Data was last revised on 2017. Basophil pct 0.5 % [facility] Comment: Interpretive Data Percent cell count reference ranges are not reported, since discordance with absolute values may lead to misinterpretation of CBC data. Current Interpretive Data was last revised on 2017. Blood 06/21/2024 5:03 AM CLEAT THROWER 06/21/2024 5:14 AM CLEAT THROWER us Patricia Bryant MD LAB BLOOD ORDERABLES Final Res ult [facility] Department [place] [address] * (ABNORMAL) CBC with auto differential (06/21/2024 5:03 AM CLEAT THROWER) Pathologist [facility] WBC 4.3 3.8 - 9.9 K/cumm Hgb 11.6(L) 13.0 - 17.5 g/dL [facility] Hct 34.5(L) 38.9 - 50.3 % [facility] Plt 132(L) 150 - 400 K/cumm [facility] MPV 11.3 9.1 - 12.3 fL [facility] RBC 3.53(L) 4.30 - 5.80 M/cumm [facility] MCV 97.7(H) 81.3 - 96.4 fL [facility] MCH 32.9 27.1 - 33.3 pg [facility] MCHC 33.6 32.3 - 35.7 g/dL [facility] RDW CV 13.4 11.1 - 14.9 % [facility] RDW SD 48.0 35.7 - 48.1 fL [facility] NRBC abs 0.00 0.00 - 0.01 K/cumm [facility] Blood 06/21/2024 5:03 AM CLEAT THROWER 06/21/2024 5:14 AM CLEAT THROWER Patricia Bryant MD LAB BLOOD ORDERABLES Final Res ult Performing Organization Address [facility] Co de Phone Number [facility] [place] [employer] [place] [address] * Phosphorus (06/21/2024 5:03 AM CLEAT THROWER) Pathologist [facility] Phosphorus, pl 3.1 2.3 - 4.5 mg/dL Blood 06/21/2024 5:03 AM CLEAT THROWER 06/21/2024 5:14 AM CLEAT THROWER Patricia Bryant MD LAB BLOOD ORDERABLES Final Res ult Performing Organization Address [facility]/ZIP Co de Phone Number [facility] [place] [employer] [place] [address] * Magnesium (06/21/2024 5:03 AM CLEAT THROWER) Magnesium 1.9 1.4 - 2.5 mg/dL Blood 06/21/2024 5:03 AM CLEAT THROWER 06/21/2024 5:14 AM CLEAT THROWER us Patricia Bryant MD LAB BLOOD ORDERABLES Final Res ult [facility] Department [place] [address] * (ABNORMAL) Comprehensive metabolic panel (06/21/2024 5:03 AM CLEAT THROWER) Pathologist [facility] Sodium 145 135 - 145 mmol/L Potassium, pl 3.4 3.3 - 4.9 mmol/L [facility] Chloride 112(H) 97 - 110 mmol/L [facility] CO2 27 22 - 32 mmol/L [facility] Anion gap 6 2 - 15 mmol/L [facility] BUN 9 6 - 25 mg/dL [facility] Creatinine 0.57(L) 0.80 - 1.30 mg/dL [facility] Glucose 106 70 - 199 mg/dL [facility] Comment: Interpretive Data Fasting glucose >/= 126 [...] 2022. Calcium 8.6 8.5 - 10.3 mg/dL [facility] Bilirubin, total 0.2 0.1 - 1.2 mg/dL [facility] Protein, pl 5.6(L) 6.5 - 8.5 g/dL [facility] Albumin 2.7(L) 3.5 - 5.0 g/dL [facility] Alk phos 61 40 - 130 Units/L [facility] ALT 15 7 - 55 Units/L [facility] AST 25 10 - 50 Units/L [facility] Blood 06/21/2024 5:03 AM CLEAT THROWER 06/21/2024 5:14 AM CLEAT THROWER Patricia Bryant MD LAB BLOOD ORDERABLES Final Res ult Performing Organization Address [facility] Co de Phone Number [facility] Department [place] [address] * (ABNORMAL) MSSA/MRSA (Staphylococcus aureus) Culture Nasal (06/20/2024 10:30 PM CLEAT THROWER) Report Final Report: 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 Patricia Bryant MD LAB MICROBIOLOGY - GENERAL ORD ERABLES Final Result Performing Organization Address [facility] de Phone Number [facility] Department [place] [address] * XR Abdomen Ap 1 Vw (06/20/2024 10:29 AM CLEAT THROWER) Anatomical Region Laterality Modality Body, Abdomen N/A Computed Radiogr aphy 06/20/2024 10:5 3 AM CLEAT THROWER Impressions 06/20/2024 11:51 AM CLEAT THROWER Gastrostomy tube. Colonic distention is improved. No radiographic evidence of obstruction. Dictated by: Hunter Hernandez M.D. ([place]) The radiology attending physician has personally reviewed this study, and had reviewed and/or edited this written report and agrees with it. Electronically signed by: Byron Moya M.D. Narrative 06/20/2024 11:51 AM CLEAT THROWER EXAMINATION: Abdomen, one view. HISTORY: Abdominal distention. [...] it. Electronically signed by: Byron Moya M.D. us Patricia Bryant MD IMG XR PROCEDURES Final Result * (ABNORMAL) Urinalysis reflex to microscopic and culture Urine, bladder (06/19/2024 9:34 PM CLEAT THROWER) Color, ur Straw Yellow Clarity, ur Clear Clear [facility] Specific gravity, ur 1.021 1.003 - 1.030 [facility] pH, urine 7.0 [facility] Comment: Interpretive Data U rine pH is affected by diet, medications, systemic acid-base disturbances, and renal tubular function. pH may affect urinary stone formation. For example, urine pH below 6.0 may help reduce the tendency for calcium phosphate stones and pH greater than 6.0 may reduce the tendency for uric acid stone formation. Source: [place] [employer] Current Interpretive Data was last revised on 2017 Protein, ur ql 1+(A) Negative [facility] Glucose, ur ql Negative Negative [facility] Ketones, ur Negative Negative [facility] Bilirubin, ur Negative Negative [facility] Blood, ur Negative Negative [facility] Urobilinogen, ur <2.0 <2.0 mg/dL [facility] Nitrite, ur Negative Negative [facility] Leukocyte esterase, ur Negative Negative [facility] UA reflex comment Reflex to microscopic UA will be performed. [facility] Urine, bladder 06/19/2024 9: 34 PM CLEAT THROWER 06/19/2024 10:05 PM CLEAT THROWER Patircia Bryant MD LAB MICROBIOLOGY - GENERAL ORD ERABLES Final Result Performing Organization Address [facility] Co de Phone Number [facility] [place] [address] * Urinalysis, microscopic only (06/19/2024 9:34 PM CLEAT THROWER) Pathologist [facility] WBC, ur 0-5 0 - 5 /HPF RBC, ur 0-2 0 - 2 /HPF [facility] Epithelial cells, squamous, ur 1-5 0 - 5 /HPF [facility] Culture Reflex Comment Reflex conditions for urine culture (WBC >10) not met. [facility] Urine, bladder 06/19/2024 9: 34 PM CLEAT THROWER 06/19/2024 10:05 PM CLEAT THROWER Patricia Bryant MD LAB URINE ORDERABLES Final Res ult Performing Organization Address [facility] de Phone Number [facility] [place] [address] * (ABNORMAL) Differential, auto (06/19/2024 9:28 PM CLEAT THROWER) Neutrophil abs 6.0 1.5 - 6.5 K/cumm Imm gran abs 0.0 0.0 - 0.1 K/cumm [facility] Lymphocyte abs 0.7(L) 0.8 - 3.3 K/cumm [facility] Monocyte abs 0.2 0.2 - 0.8 K/cumm [facility] Eosinophil abs 0.2 0.0 - 0.5 K/cumm [facility] Basophil abs 0.0 0.0 - 0.1 K/cumm [facility] Neutrophil pct 84.1 % [facility] Comment: Interpretive Data Percent cell count reference ranges are not reported, since discordance with absolute values may lead to misinterpretation of CBC data. Current Interpretive Data was last revised on 2017. Imm gran pct 0.4 % [facility] Comment: Interpretive Data Percent cell count reference ranges are not reported, since discordance with absolute values may lead to misinterpretation of CBC data. Current Interpretive Data was last revised on 2017. Lymphocyte pct 10.1 % [facility] Comment: Interpretive Data Percent cell count reference ranges are not reported, since discordance with absolute values may lead to misinterpretation of CBC data. Current Interpretive Data was last revised on 2017. Monocyte pct 2.9 % [facility] Comment: Interpretive Data Percent cell count reference ranges are not reported, since discordance with absolute values may lead to misinterpretation of CBC data. Current Interpretive Data was last revised on 2017. Eosinophil pct 2.4 % [facility] Comment: Interpretive Data Percent cell count reference ranges are not reported, since discordance with absolute values may lead to misinterpretation of CBC data. Current Interpretive Data was last revised on 2017. Basophil pct 0.1 % [facility] Comment: Interpretive Data Percent cell count reference ranges are not reported, since discordance with absolute values may lead to misinterpretation of CBC data. Current Interpretive Data was last revised on 2017. Blood 06/19/2024 9:28 PM CLEAT THROWER 06/19/2024 10:38 PM CLEAT THROWER us Patricia Bryant MD LAB BLOOD ORDERABLES Final Res ult [facility] Department [place] [address] * Lacosamide level (06/19/2024 9:28 PM CLEAT THROWER) Lacosamide 9.6 1.0 - 10.0 mcg/mL [facility] Comment: ADDITIONAL INFORMATION This test was developed and its performance characteristics determined by [facility] in a manner consistent with CLIA requirements. This test has not been cleared or approved by the U.S. Food and Drug Administration. Test Performed by: [facility] [address] [place] [address] [employer] Supervisor: Marianela Odonnell Ph.D.; CLIA# [id number] Blood 06/19/2024 9:28 PM CLEAT THROWER 06/19/2024 11:01 PM CLEAT THROWER Narrative [facility] - 06/22/2024 10:25 AM CLEAT THROWER Please get level before lacosamide dose is given us Patricia Bryant MD LAB BLOOD ORDERABLES Final Res ult [facility] Department [place] [address] [facility] * (ABNORMAL) CBC with auto differential (06/19/2024 9:28 PM CLEAT THROWER) WBC 7.1 3.8 - 9.9 K/cumm Hgb 12.5(L) 13.0 - 17.5 g/dL [facility] Hct 37.0(L) 38.9 - 50.3 % [facility] Plt 152 150 - 400 K/cumm [facility] MPV 12.6(H) 9.1 - 12.3 fL [facility] RBC 3.90(L) 4.30 - 5.80 M/cumm [facility] MCV 94.9 81.3 - 96.4 fL [facility] MCH 32.1 27.1 - 33.3 pg [facility] MCHC 33.8 32.3 - 35.7 g/dL [facility] RDW CV 13.4 11.1 - 14.9 % [facility] RDW SD 46.8 35.7 - 48.1 fL [facility] NRBC abs 0.00 0.00 - 0.01 K/cumm [facility] Blood 06/19/2024 9:28 PM CLEAT THROWER 06/19/2024 10:38 PM CLEAT THROWER Patricia Bryant MD LAB BLOOD ORDERABLES Final Res ult Performing Organization Address City/[facility] Co de Phone Number [facility] [place] [address] * Valproic acid level, total (06/19/2024 9:28 PM CLEAT THROWER) [facility] Valproic Acid 76.0 50.0 - 100.0 mcg/mL Comment: Interpretive Data Therapeutic or toxic effects of anticonvulsant drugs may occur at different concentrations in different patients and the correlation between dose and clinical effect must be evaluated individually. Current interpretative data was last revised on 13. Blood 06/19/2024 9:28 PM CLEAT THROWER 06/19/2024 10:39 PM CLEAT THROWER Narrative [facility] - 06/19/2024 11:40 PM CLEAT THROWER Please get level before dose is given Patricia Bryant MD LAB BLOOD ORDERABLES Final Res ult Performing Organization Address [facility] Co de Phone Number [facility] Department [place] [address] * Respiratory pathogen panel Nasopharyngeal (06/19/2024 9:10 PM CLEAT THROWER) [facility] Influenza A RNA Not Detected Not Detected Influenza B RNA Not Detected Not Detected [facility] RSV RNA Not Detected Not Detected [facility] COVID-19 RNA Not Detected Not Detected [facility] Coronavirus 229E RNA Not Detected Not Detected [facility] Coronavirus HKU1 RNA Not Detected Not Detected [facility] Coronavirus NL63 RNA Not Detected Not Detected [facility] Coronavirus OC43 RNA Not Detected Not Detected [facility] Adenovirus DNA Not Detected Not Detected [facility] Metapneumovirus RNA Not Detected Not Detected [facility] Rhinovirus/Enterov irus RNA Not Detected Not Detected [facility] Parainfluenza 1 RNA Not Detected Not Detected [facility] Parainfluenza 2 RNA Not Detected Not Detected [facility] Parainfluenza 3 RNA Not Detected Not Detected [facility] Parainfluenza 4 RNA Not Detected Not Detected [facility] B. pertussis DNA Not Detected Not Detected [facility] B. parapertussis DNA Not Detected Not Detected [facility] C. pneumoniae DNA Not Detected Not Detected [facility] M. pneumoniae DNA Not Detected Not Detected [facility] Nasopharyngeal 06/19/2024 9: 10 PM CLEAT THROWER 06/19/2024 10:06 PM CLEAT THROWER Narrative [facility] - 06/19/2024 11:35 PM CLEAT THROWER Is the Patient experiencing symptoms consistent with COVID?->Yes Surveillance testing for transplant patient?->No Interpretive Data The [employer] FilmArray Respiratory Panel (RP2.1) assay is a [...] assay has FDA clearance for testing of SHAKE OUT WORKER swabs. The performance of additional specimen types has been assessed by the performing laboratory. The performance characteristics of this assay have been determined by [facility] Molecular Infectious Disease Laboratory. Current interpretive data was last revised on 22. Patricia Bryant MD LAB MICROBIOLOGY - GENERAL ORD ERABLES Final Result [facility] Department [place] [address] * (ABNORMAL) Aerobic culture and gram stain Tracheal aspirate Tracheal (06/19/2024 6:53 PM CLEAT THROWER) Direct Specimen Exam Stain: Abundant polymorphonuclear leukocytes seen. Few squamous epithelial cells seen. Moderate mixed bacterial domenico seen on Gram stain. Report Final Report: Greater than or equal to 100,000 colonies/ml of Staphylococcus aureus Methicillin resistant (MRSA) by penicillin binding protein 2a (PBP2a) testing. Plus growth of clinically insignificant bacterial domenico. (.) [facility] Organism STAPHYLOCOCCUS AUREUS [facility] Organism PLUS GROWTH OF CLINICALLY INSIGNIFICANT DOMENICO. [facility] Tracheal aspirate (Tracheal) 06/19/2024 6:53 PM CLEAT THROWER 06/19/2024 8:18 PM CLEAT THROWER Narrative [facility] - 06/27/2024 2:52 PM CLEAT THROWER Testing performed by [facility] ([phone]) Specimens submitted from normally sterile body sites [...] - GENERAL ORD ERABLES Final Result [facility] [place] [address] * XR Chest 1 View (06/19/2024 6:47 PM CLEAT THROWER) Anatomical Region Laterality Modality Body, Chest N/A Digital Radiogra phy 06/20/2024 2:42 PM CLEAT THROWER Impressions 06/20/2024 3:15 PM CLEAT THROWER Comparison is made to 06/19/2024 at 3:32 [...] Herve Payne M.D. Narrative 06/20/2024 3:15 PM CLEAT THROWER EXAMINATION: 1 view chest radiograph Procedure Note [...] pathogen panel Tracheal aspirate (06/19/2024 6:46 PM CLEAT THROWER) [facility] Influenza A RNA Not Detected Not Detected Influenza B RNA Not Detected Not Detected [facility] RSV RNA Not Detected Not Detected [facility] COVID-19 RNA Not Detected Not Detected [facility] Coronavirus 229E RNA Not Detected Not Detected [facility] Coronavirus HKU1 RNA Not Detected Not Detected [facility] Coronavirus NL63 RNA Not Detected Not Detected [facility] Coronavirus OC43 RNA Not Detected Not Detected [facility] Adenovirus DNA Not Detected Not Detected [facility] Metapneumovirus RNA Not Detected Not Detected [facility] Rhinovirus/Enterov irus RNA Not Detected Not Detected [facility] Parainfluenza 1 RNA Not Detected Not Detected [facility] Parainfluenza 2 RNA Not Detected Not Detected [facility] Parainfluenza 3 RNA Not Detected Not Detected [facility] Parainfluenza 4 RNA Not Detected Not Detected [facility] B. pertussis DNA Not Detected Not Detected [facility] B. parapertussis DNA Not Detected Not Detected [facility] C. pneumoniae DNA Not Detected Not Detected [facility] M. pneumoniae DNA Not Detected Not Detected [facility] Tracheal aspirate 06/19/2024 6:46 PM CLEAT THROWER 06/20/2024 7:55 AM CLEAT THROWER Narrative [facility] - 06/20/2024 8:58 AM CLEAT THROWER Is the Patient experiencing symptoms consistent with COVID?->Yes Surveillance testing for transplant patient?->No Interpretive Data The [employer] FilmArray Respiratory Panel (RP2.1) assay is a [...] assay has FDA clearance for testing of SHAKE OUT WORKER swabs. The performance of additional specimen types has been assessed by the performing laboratory. The performance characteristics of this assay have been determined by [facility] Molecular Infectious Disease Laboratory. Current interpretive data was last revised on 22. us Patricia Bryant MD LAB MICROBIOLOGY - GENERAL ORD ERABLES Final Result [facility] Department [place] [address] * XR Abdomen Ap 1 Vw (06/19/2024 4:09 PM CLEAT THROWER) Anatomical Region Laterality Modality Body, Abdomen N/A Digital Radiogra phy 06/19/2024 4:35 PM CLEAT THROWER Impressions 06/19/2024 5:03 PM CLEAT THROWER Diffuse mild gaseous bowel distention, similar to the prior exam and could represent ileus. Partially imaged gastrostomy tube. Dictated by: Hunter Hernandez M.D. (Ramanan) The radiology attending physician has personally reviewed this study, and had reviewed and/or edited this written report and agrees with it. Electronically signed by: Lupillo Lugo M.D. Narrative 06/19/2024 5:03 PM CLEAT THROWER EXAMINATION: Abdomen, one view. HISTORY: Abdominal pain [...] XR Chest 1 View (06/19/2024 4:08 PM CLEAT THROWER) Anatomical Region Laterality Modality Body, Chest N/A Digital Radiogra phy 06/19/2024 4:21 PM CLEAT THROWER Impressions 06/19/2024 4:21 PM CLEAT THROWER The current study is compared with the [...] Elif Patel M.D. Narrative 06/19/2024 4:21 PM [facility]AT THROWER EXAMINATION: 1 view chest radiograph Procedure Note [...] Final Result * eGFR (06/19/2024 2:47 PM CLEAT THROWER) eGFR >90 >=60 mL/min/1. 73 m2 Comment: [...] last reviewed 2021. Blood 06/19/2024 2:47 PM CLEAT THROWER 06/19/2024 3:03 PM CLEAT THROWER Patricia Bryant MD LAB BLOOD ORDERABLES Final Res ult [facility] Department [place] [address] * Differential, auto (06/19/2024 2:47 PM CLEAT THROWER) Neutrophil abs 5.5 1.5 - 6.5 K/cumm Imm gran abs 0.0 0.0 - 0.1 K/cumm [facility] Lymphocyte abs 0.9 0.8 - 3.3 K/cumm [facility] Monocyte abs 0.2 0.2 - 0.8 K/cumm [facility] Eosinophil abs 0.3 0.0 - 0.5 K/cumm [facility] Basophil abs 0.0 0.0 - 0.1 K/cumm [facility] Neutrophil pct 79.8 % [facility] Comment: Interpretive Data Percent cell count reference ranges are not reported, since discordance with absolute values may lead to misinterpretation of CBC data. Current Interpretive Data was last revised on 2017. Imm gran pct 0.4 % [facility] Comment: Interpretive Data Percent cell count reference ranges are not reported, since discordance with absolute values may lead to misinterpretation of CBC data. Current Interpretive Data was last revised on 2017. Lymphocyte pct 13.4 % [facility] Comment: Interpretive Data Percent cell count reference ranges are not reported, since discordance with absolute values may lead to misinterpretation of CBC data. Current Interpretive Data was last revised on 2017. Monocyte pct 2.5 % [facility] Comment: Interpretive Data Percent cell count reference ranges are not reported, since discordance with absolute values may lead to misinterpretation of CBC data. Current Interpretive Data was last revised on 2017. Eosinophil pct 3.8 % [facility] Comment: Interpretive Data Percent cell count reference ranges are not reported, since discordance with absolute values may lead to misinterpretation of CBC data. Current Interpretive Data was last revised on 2017. Basophil pct 0.1 % [facility] Comment: Interpretive Data Percent cell count reference ranges are not reported, since discordance with absolute values may lead to misinterpretation of CBC data. Current Interpretive Data was last revised on 2017. Blood 06/19/2024 2:47 PM CLEAT THROWER 06/19/2024 3:04 PM CLEAT THROWER us Patricia Braynt MD LAB BLOOD ORDERABLES Final Res ult [facility] Department [place] [address] * (ABNORMAL) CBC with auto differential (06/19/2024 2:47 PM CLEAT THROWER) [facility] WBC 6.9 3.8 - 9.9 K/cumm Hgb 14.2 13.0 - 17.5 g/dL [facility] Hct 42.4 38.9 - 50.3 % [facility] Plt 135(L) 150 - 400 K/cumm [facility] MPV 12.6(H) 9.1 - 12.3 fL [facility] RBC 4.47 4.30 - 5.80 M/cumm [facility] MCV 94.9 81.3 - 96.4 fL [facility] MCH 31.8 27.1 - 33.3 pg [facility] MCHC 33.5 32.3 - 35.7 g/dL [facility] RDW CV 13.2 11.1 - 14.9 % [facility] RDW SD 46.5 35.7 - 48.1 fL [facility] NRBC abs 0.00 0.00 - 0.01 K/cumm [facility] Blood 06/19/2024 2:47 PM CLEAT THROWER 06/19/2024 3:04 PM CLEAT THROWER Patricia Bryant MD LAB BLOOD ORDERABLES Final Res ult Performing Organization Address City/[facility] Co de Phone Number [facility] [place] [employer] [place] [address] * (ABNORMAL) Phosphorus (06/19/2024 2:47 PM CLEAT THROWER) [facility] Phosphorus, pl 2.2(L) 2.3 - 4.5 mg/dL Blood 06/19/2024 2:47 PM CLEAT THROWER 06/19/2024 3:03 PM CLEAT THROWER Patricia Bryant MD LAB BLOOD ORDERABLES Final Res ult Performing Organization Address City/[facility]/ZIP Co de Phone Number [facility] [place] [address] * Magnesium (06/19/2024 2:47 PM CLEAT THROWER) Magnesium 2.0 1.4 - 2.5 mg/dL Blood 06/19/2024 2:47 PM CLEAT THROWER 06/19/2024 3:03 PM CLEAT THROWER us Patricia Bryant MD LAB BLOOD ORDERABLES Final Res ult [facility] Department [place] [address] * (ABNORMAL) Comprehensive metabolic panel (06/19/2024 2:47 PM CLEAT THROWER) Pathologist [facility] Sodium 144 135 - 145 mmol/L Potassium, pl 3.9 3.3 - 4.9 mmol/L [facility] Comment:Hemolyzed; Potassium value may be falsely elevated by as much as 0.3-0.5 mmol/L. Suggest redraw and reanalysis. Chloride 105 97 - 110 mmol/L [facility] CO2 29 22 - 32 mmol/L [facility] Anion gap 10 2 - 15 mmol/L [facility] BUN 7 6 - 25 mg/dL [facility] Creatinine 0.62(L) 0.80 - 1.30 mg/dL [facility] Glucose 113 70 - 199 mg/dL [facility] Comment: Interpretive Data Fasting glucose >/= 126 [...] 2022. Calcium 9.5 8.5 - 10.3 mg/dL [facility] Bilirubin, total 0.2 0.1 - 1.2 mg/dL [facility] Protein, pl 7.2 6.5 - 8.5 g/dL [facility] Albumin 3.7 3.5 - 5.0 g/dL [facility] Alk phos 91 40 - 130 Units/L [facility] ALT 13 7 - 55 Units/L [facility] AST 28 10 - 50 Units/L [facility] Comment:Hemolyzed; result ma y be falsely elevated Blood 06/19/2024 2:47 PM CLEAT THROWER 06/19/2024 3:03 PM CLEAT THROWER Patricia Bryant MD LAB BLOOD ORDERABLES Final Res ult Performing Organization Address [facility] Co de Phone Number [facility] Department [place] [address] * POCT glucose (06/19/2024 2:25 PM CLEAT THROWER) Glucose, POC 125 70 - 199 mg/dL Blood 06/19/2024 2:25 PM CLEAT THROWER 06/19/2024 2:25 PM CLEAT THROWER Patricia Bryant MD LAB POCT ORDERABLES - DEVICE F inal Result Performing Organization Address [facility] Phone Number [facility] Department [place] [address] * XR Abdomen Ap 1 Vw (06/16/2024 6:16 PM CLEAT THROWER) Anatomical Region Laterality Modality Body, Abdomen N/A Computed Radiogr aphy 06/16/2024 6:56 PM CLEAT THROWER Impressions 06/16/2024 6:56 PM CLEAT THROWER Gastrostomy tube is present. Aerated bowel seen throughout the abdomen. The gaseous distention is improved from the prior examination. Distal rectal air is not definitively visualized. No pneumoperitoneum. Electronically signed by: Sekou Wolf M.D. Narrative 06/16/2024 6:56 PM CLEAT THROWER EXAMINATION: Abdomen, one view. HISTORY: Abdominal distension. COMPARISON: 06/15/2024 Procedure Note Sekou Wolf MD - 06/16/2024 EXAMINATION: Abdomen, one view. HISTORY: Abdominal distension. COMPARISON: 06/15/2024 IMPRESSION: Gastrostomy tube is present. Aerated bowel seen throughout the abdomen. The gaseous distention is improved from the prior examination. Distal rectal air is not definitively visualized. No pneumoperitoneum. Electronically signed by: Sekou Wolf M.D. Misael Felix MD IMG XR PROCEDURES Final Res ult * eGFR (06/16/2024 12:42 PM CLEAT THROWER) eGFR >90 >=60 mL/min/1. 73 m2 Comment: [...] reviewed 2021. Blood 06/16/2024 12:4 2 PM CLEAT THROWER 06/16/2024 12:49 PM CLEAT THROWER Misael Felix MD LAB BLOOD ORDERABLES Final Result [facility] Department of Laboratories [place], [place] [id number] * Differential, auto (06/16/2024 12:42 PM CLEAT THROWER) Neutrophil abs 2.5 1.5 - 6.5 K/cumm Imm gran abs 0.0 0.0 - 0.1 K/cumm [facility] Lymphocyte abs 2.4 0.8 - 3.3 K/cumm [facility] Monocyte abs 0.4 0.2 - 0.8 K/cumm [facility] Eosinophil abs 0.4 0.0 - 0.5 K/cumm [facility] Basophil abs 0.0 0.0 - 0.1 K/cumm [facility] Neutrophil pct 42.8 % [facility] Comment: Interpretive Data Percent cell count reference ranges are not reported, since discordance with absolute values may lead to misinterpretation of CBC data. Current Interpretive Data was last revised on 2017. Imm gran pct 0.2 % [facility] Comment: Interpretive Data Percent cell count reference ranges are not reported, since discordance with absolute values may lead to misinterpretation of CBC data. Current Interpretive Data was last revised on 2017. Lymphocyte pct 42.2 % [facility] Comment: Interpretive Data Percent cell count reference ranges are not reported, since discordance with absolute values may lead to misinterpretation of CBC data. Current Interpretive Data was last revised on 2017. Monocyte pct 6.7 % [facility] Comment: Interpretive Data Percent cell count reference ranges are not reported, since discordance with absolute values may lead to misinterpretation of CBC data. Current Interpretive Data was last revised on 2017. Eosinophil pct 7.7 % [facility] Comment: Interpretive Data Percent cell count reference ranges are not reported, since discordance with absolute values may lead to misinterpretation of CBC data. Current Interpretive Data was last revised on 2017. Basophil pct 0.4 % [facility] Comment: Interpretive Data Percent cell count reference ranges are not reported, since discordance with absolute values may lead to misinterpretation of CBC data. Current Interpretive Data was last revised on 2017. Blood 06/16/2024 12:4 2 PM CLEAT THROWER 06/16/2024 12:49 PM CLEAT THROWER us Misael Felix MD LAB BLOOD ORDERABLES Final Result [facility] Department [place] [address] * (ABNORMAL) CBC with auto differential (06/16/2024 12:42 PM CLEAT THROWER) Pathologist [facility] WBC 5.7 3.8 - 9.9 K/cumm Hgb 12.2(L) 13.0 - 17.5 g/dL [facility] Hct 36.6(L) 38.9 - 50.3 % [facility] Plt 156 150 - 400 K/cumm [facility] MPV 12.6(H) 9.1 - 12.3 fL [facility] RBC 3.85(L) 4.30 - 5.80 M/cumm [facility] MCV 95.1 81.3 - 96.4 fL [facility] MCH 31.7 27.1 - 33.3 pg [facility] MCHC 33.3 32.3 - 35.7 g/dL [facility] RDW CV 13.0 11.1 - 14.9 % [facility] RDW SD 45.1 35.7 - 48.1 fL [facility] NRBC abs 0.00 0.00 - 0.01 K/cumm [facility] Blood 06/16/2024 12:4 2 PM CLEAT THROWER 06/16/2024 12:49 PM CLEAT THROWER Misael Felix MD LAB BLOOD ORDERABLES Final Result Performing Organization Address City/[facility]/ZIP Co de Phone Number [facility] Department [place] [address] * Phosphorus (06/16/2024 12:42 PM CLEAT THROWER) Pathologist [facility] Phosphorus, pl 2.5 2.3 - 4.5 mg/dL Blood 06/16/2024 12:4 2 PM CLEAT THROWER 06/16/2024 12:49 PM CLEAT THROWER Misael Felix MD LAB BLOOD ORDERABLES Final Result [facility] Department [place] [address] * Magnesium (06/16/2024 12:42 PM CLEAT THROWER) Pathologist [facility] Magnesium 2.0 1.4 - 2.5 mg/dL Blood 06/16/2024 12:4 2 PM CLEAT THROWER 06/16/2024 12:49 PM CLEAT THROWER Misael Felix MD LAB BLOOD ORDERABLES Final Result [facility] Department [place] [address] * (ABNORMAL) Comprehensive metabolic panel (06/16/2024 12:42 PM CLEAT THROWER) [facility] Sodium 143 135 - 145 mmol/L Potassium, pl 3.5 3.3 - 4.9 mmol/L [facility] Chloride 111(H) 97 - 110 mmol/L [facility] CO2 26 22 - 32 mmol/L [facility] Anion gap 6 2 - 15 mmol/L [facility] BUN 6 6 - 25 mg/dL [facility] Creatinine 0.56(L) 0.80 - 1.30 mg/dL [facility] Glucose 94 70 - 199 mg/dL [facility] Comment: Interpretive Data Fasting glucose >/= 126 [...] 2022. Calcium 8.9 8.5 - 10.3 mg/dL [facility] Bilirubin, total 0.4 0.1 - 1.2 mg/dL [facility] Protein, pl 6.3(L) 6.5 - 8.5 g/dL [facility] Albumin 3.3(L) 3.5 - 5.0 g/dL [facility] Alk phos 79 40 - 130 Units/L [facility] ALT 10 7 - 55 Units/L [facility] AST 18 10 - 50 Units/L [facility] Blood 06/16/2024 12:4 2 PM CLEAT THROWER 06/16/2024 12:49 PM CLEAT THROWER us Misael Felix MD LAB BLOOD ORDERABLES Final Result [facility] Department [place] [address] * XR Abdomen Ap 1 Vw (06/15/2024 1:57 AM CLEAT THROWER) Anatomical Region Laterality Modality Body, Abdomen N/A Computed Radiogr aphy 06/15/2024 3:15 PM CLEAT THROWER Impressions 06/15/2024 4:44 PM CLEAT THROWER There is a gastrostomy tube with tip [...] Sean Angel M.D. Narrative 06/15/2024 4:44 PM CLEAT THROWER EXAMINATION: Abdomen, one view. HISTORY: Abdominal distension. [...] Res ult * eGFR (06/13/2024 4:59 AM CLEAT THROWER) eGFR >90 >=60 mL/min/1. 73 m2 Comment: [...] last reviewed 2021. Blood 06/13/2024 4:59 AM CLEAT THROWER 06/13/2024 5:38 AM CLEAT THROWER Ryan Jauregui MD LAB BLOOD ORDERABLES Final Resul t [facility] Department [place] [address] * (ABNORMAL) Differential, auto (06/13/2024 4:59 AM CLEAT THROWER) Neutrophil abs 10.3(H) 1.5 - 6.5 K/cumm Imm gran abs 0.1 0.0 - 0.1 K/cumm [facility] Lymphocyte abs 3.0 0.8 - 3.3 K/cumm [facility] Monocyte abs 0.9(H) 0.2 - 0.8 K/cumm [facility] Eosinophil abs 0.2 0.0 - 0.5 K/cumm [facility] Basophil abs 0.0 0.0 - 0.1 K/cumm [facility] Neutrophil pct 70.9 % [facility] Comment: Interpretive Data Percent cell count reference ranges are not reported, since discordance with absolute values may lead to misinterpretation of CBC data. Current Interpretive Data was last revised on 2017. Imm gran pct 0.4 % [facility] Comment: Interpretive Data Percent cell count reference ranges are not reported, since discordance with absolute values may lead to misinterpretation of CBC data. Current Interpretive Data was last revised on 2017. Lymphocyte pct 20.7 % [facility] Comment: Interpretive Data Percent cell count reference ranges are not reported, since discordance with absolute values may lead to misinterpretation of CBC data. Current Interpretive Data was last revised on 2017. Monocyte pct 6.5 % [facility] Comment: Interpretive Data Percent cell count reference ranges are not reported, since discordance with absolute values may lead to misinterpretation of CBC data. Current Interpretive Data was last revised on 2017. Eosinophil pct 1.4 % [facility] Comment: Interpretive Data Percent cell count reference ranges are not reported, since discordance with absolute values may lead to misinterpretation of CBC data. Current Interpretive Data was last revised on 2017. Basophil pct 0.1 % [facility] Comment: Interpretive Data Percent cell count reference ranges are not reported, since discordance with absolute values may lead to misinterpretation of CBC data. Current Interpretive Data was last revised on 2017. Blood 06/13/2024 4:59 AM CLEAT THROWER 06/13/2024 5:38 AM CLEAT THROWER us Ryan Jauregui MD LAB BLOOD ORDERABLES Final Resul t [facility] Department [place] [address] * Lacosamide level (06/13/2024 4:59 AM CLEAT THROWER) [facility] Lacosamide 1.4 1.0 - 10.0 mcg/mL [facility] Comment: ADDITIONAL INFORMATION This test was developed and its performance characteristics determined by [facility] in a manner consistent with CLIA requirements. This test has not been cleared or approved by the U.S. Food and Drug Administration. Test Performed by: [facility] - [facility] [address] [place] [address] [employer] Supervisor: Marianela Odonnell Ph.D.; CLIA# [id number] Blood 06/13/2024 4:59 AM CLEAT THROWER 06/13/2024 5:38 AM CLEAT THROWER Ryan Jauregui MD LAB BLOOD ORDERABLES Final Resul t [facility] Department [place] [address] [facility] * (ABNORMAL) CBC with auto differential (06/13/2024 4:59 AM CLEAT THROWER) [facility] WBC 14.6(H) 3.8 - 9.9 K/cumm Hgb 13.2 13.0 - 17.5 g/dL [facility] Hct 39.7 38.9 - 50.3 % [facility] Plt 155 150 - 400 K/cumm [facility] MPV 12.4(H) 9.1 - 12.3 fL [facility] RBC 4.03(L) 4.30 - 5.80 M/cumm [facility] MCV 98.5(H) 81.3 - 96.4 fL [facility] MCH 32.8 27.1 - 33.3 pg [facility] MCHC 33.2 32.3 - 35.7 g/dL [facility] RDW CV 13.6 11.1 - 14.9 % [facility] RDW SD 50.2(H) 35.7 - 48.1 fL [facility] NRBC abs 0.00 0.00 - 0.01 K/cumm [facility] Blood 06/13/2024 4:59 AM CLEAT THROWER 06/13/2024 5:38 AM CLEAT THROWER Ryan Jauregui MD LAB BLOOD ORDERABLES Final Resul t Performing Organization Address [facility]/ZIP Co de Phone Number [facility] Department [place] [address] * Blood culture Blood (06/13/2024 4:59 AM CLEAT THROWER) Report Final Report: No growth Blood 06/13/2024 4:59 AM CLEAT THROWER 06/13/2024 6:21 AM CLEAT THROWER Narrative [facility] - 06/17/2024 7:00 AM CLEAT THROWER From a different site than #1. Collection->Peripheral [...] performance characteristics have been verified by the [facility] Microbiology Laboratory. For questions about this culture, contact the Microbiology Laboratory at [phone]. Interpretive data was last revised on 24. Ryan Jauregui MD LAB MICROBIOLOGY - GENERAL ORDER NICHOLE Final Result Performing Organization Address [facility]/ZIP Co de Phone Number [facility] [place] [address] * Phosphorus (06/13/2024 4:59 AM CLEAT THROWER) Phosphorus, pl 3.0 2.3 - 4.5 mg/dL Blood 06/13/2024 4:59 AM CLEAT THROWER 06/13/2024 5:38 AM CLEAT THROWER Ryan Jauregui MD LAB BLOOD ORDERABLES Final Resul t Performing Organization Address [facility] Co de Phone Number [facility] [place] [address] * Magnesium (06/13/2024 4:59 AM CLEAT THROWER) Magnesium 1.9 1.4 - 2.5 mg/dL Blood 06/13/2024 4:59 AM CLEAT THROWER 06/13/2024 5:38 AM CLEAT THROWER Ryan Jauregui MD LAB BLOOD ORDERABLES Final Resul t Performing Organization Address [facility] de Phone Number [facility] [place] [address] * (ABNORMAL) Valproic acid level, total (06/13/2024 4:59 AM CLEAT THROWER) Valproic Acid 48.0(L) 50.0 - 100.0 mcg/mL Comment: Interpretive Data Therapeutic or toxic effects of anticonvulsant drugs may occur at different concentrations in different patients and the correlation between dose and clinical effect must be evaluated individually. Current interpretative data was last revised on 13. Blood 06/13/2024 4:59 AM CLEAT THROWER 06/13/2024 5:38 AM CLEAT THROWER us Ryan Jauregui MD LAB BLOOD ORDERABLES Final Resul t Performing Organization Address [facility] Co de Phone Number [facility] [place] [address] * (ABNORMAL) Comprehensive metabolic panel (06/13/2024 4:59 AM CLEAT THROWER) Sodium 141 135 - 145 mmol/L Potassium, pl 3.9 3.3 - 4.9 mmol/L [facility] Chloride 106 97 - 110 mmol/L [facility] CO2 28 22 - 32 mmol/L [facility] Anion gap 7 2 - 15 mmol/L [facility] BUN 8 6 - 25 mg/dL [facility] Creatinine 0.54(L) 0.80 - 1.30 mg/dL [facility] Glucose 103 70 - 199 mg/dL [facility] Comment: Interpretive Data Fasting glucose >/= 126 [...] 2022. Calcium 9.5 8.5 - 10.3 mg/dL [facility] Bilirubin, total 0.5 0.1 - 1.2 mg/dL [facility] Protein, pl 7.1 6.5 - 8.5 g/dL [facility] Albumin 3.7 3.5 - 5.0 g/dL [facility] Alk phos 96 40 - 130 Units/L [facility] ALT 17 7 - 55 Units/L [facility] AST 22 10 - 50 Units/L [facility] Blood 06/13/2024 4:59 AM CLEAT THROWER 06/13/2024 5:38 AM CLEAT THROWER us Ryan Jauregui MD LAB BLOOD ORDERABLES Final Resul t [facility] Department [place] [address] * TSH (06/12/2024 3:51 PM CLEAT THROWER) Pathologist [facility] Thyroid Stimulating Hormone 2.58 0.30 - 4.20 mcIUnit/mL Blood 06/12/2024 3:51 PM CLEAT THROWER 06/12/2024 5:05 PM CLEAT THROWER us Ryan Jauregui MD LAB BLOOD ORDERABLES Final Resul t [facility] Department [place] [address] * (ABNORMAL) Differential, auto (06/12/2024 3:30 PM CLEAT THROWER) Pathologist [facility] Neutrophil abs 9.5(H) 1.5 - 6.5 K/cumm Imm gran abs 0.0 0.0 - 0.1 K/cumm [facility] Lymphocyte abs 2.3 0.8 - 3.3 K/cumm [facility] Monocyte abs 1.1(H) 0.2 - 0.8 K/cumm [facility] Eosinophil abs 0.2 0.0 - 0.5 K/cumm [facility] Basophil abs 0.0 0.0 - 0.1 K/cumm [facility] Neutrophil pct 72.4 % [facility] Comment: Interpretive Data Percent cell count reference ranges are not reported, since discordance with absolute values may lead to misinterpretation of CBC data. Current Interpretive Data was last revised on 2017. Imm gran pct 0.2 % [facility] Comment: Interpretive Data Percent cell count reference ranges are not reported, since discordance with absolute values may lead to misinterpretation of CBC data. Current Interpretive Data was last revised on 2017. Lymphocyte pct 17.4 % [facility] Comment: Interpretive Data Percent cell count reference ranges are not reported, since discordance with absolute values may lead to misinterpretation of CBC data. Current Interpretive Data was last revised on 2017. Monocyte pct 8.3 % [facility] Comment: Interpretive Data Percent cell count reference ranges are not reported, since discordance with absolute values may lead to misinterpretation of CBC data. Current Interpretive Data was last revised on 2017. Eosinophil pct 1.5 % [facility] Comment: Interpretive Data Percent cell count reference ranges are not reported, since discordance with absolute values may lead to misinterpretation of CBC data. Current Interpretive Data was last revised on 2017. Basophil pct 0.2 % [facility] Comment: Interpretive Data Percent cell count reference ranges are not reported, since discordance with absolute values may lead to misinterpretation of CBC data. Current Interpretive Data was last revised on 2017. Blood 06/12/2024 3:30 PM [facility]OWER 06/12/2024 5:10 PM CLE[facility] THROWER us Ryan Jauregui MD LAB BLOOD ORDERABLES Final Resul t [facility] [place] [address] * (ABNORMAL) CBC with auto differential (06/12/2024 3:30 PM CLEAT THROWER) WBC 13.3(H) 3.8 - 9.9 K/cumm Hgb 13.7 13.0 - 17.5 g/dL [facility] Hct 41.5 38.9 - 50.3 % [facility] Plt 162 150 - 400 K/cumm [facility] MPV 13.6(H) 9.1 - 12.3 fL [facility] RBC 4.27(L) 4.30 - 5.80 M/cumm [facility] MCV 97.2(H) 81.3 - 96.4 fL [facility] MCH 32.1 27.1 - 33.3 pg [facility] MCHC 33.0 32.3 - 35.7 g/dL [facility] RDW CV 13.7 11.1 - 14.9 % [facility] RDW SD 48.8(H) 35.7 - 48.1 fL [facility] NRBC abs 0.00 0.00 - 0.01 K/cumm [facility] Blood 06/12/2024 3:30 PM [facility]ROWER 06/12/2024 5:10 PM CLEAT THROWER Ryan Jauregui MD LAB BLOOD ORDERABLES Final Resul t Performing Organization Address [facility] de Phone Number [facility] [employer] [place] [address] * Hemoglobin A1c (06/12/2024 3:30 PM CLEAT THROWER) Hgb A1C 4.9 4.0 - 5.6 % Estimated Average Glucose 94 mg/dL [facility] Comment: The ADA recommends reporting an estimated Average Glucose (eAG) with all Hemoglobin A1c results using the equation derived from a study of 507 normal and diabetic adults. Minority populations were underrepresented and children were not included. (Diabetes Care 2020; 43(S1): S66-S76). The eAG is not equivalent to a fasting glucose. Blood 06/12/2024 3:30 PM CLEAT THROWER 06/12/2024 5:10 PM CLE[facility] THROWER Ryan Jauregui MD LAB BLOOD ORDERABLES Final Resul t Performing Organization Address [facility] de Phone Number [facility] [place] [address] * Troponin I high-sensitivity 4-hour (06/12/2024 3:27 PM CLEAT THROWER) Pathologist [facility] Trop I hs 10 <=35 ng/L Comment: Interpretive Data For further hscTnI resources including the diagnostic algorithm and an aid in interpretation, copy and paste this link: https://bjhlab.testcatalog.org/show/[email or web address] Current Interpretive Data last revised 2019. Trop I hs delta 1 ng/L [facility] Trop I hs interp Insignificant [facility] Blood 06/12/2024 3:27 PM [facility] THROWER 06/12/2024 5:06 PM [facility]OWER Shakila Jung MD LAB BLOOD ORDERABL ES Final Result Performing Organization Address [facility] Co de Phone Number [facility] Department [place] [address] * XR Chest 1 Vw Portable (06/12/2024 2:47 PM [facility]ROWER) Anatomical Region Laterality Modality Body, Chest N/A Computed Radiogr aphy 06/12/2024 2:51 PM [facility]OWER Impressions 06/12/2024 2:51 PM [facility]ROWER Comparison to 10/07/2021. Tracheostomy device in place. Small lung volumes with bibasilar atelectasis. No pneumothorax or focal consolidation. Unchanged cardiomediastinal silhouette, accounting for differences volumes. Small left pleural effusion. No right pleural effusion. Electronically signed by: Raul [place] M.D. Narrative 06/12/2024 2:51 PM [facility]OWER EXAMINATION: 1 view chest radiograph Procedure Note [...] Urine, in and out catheter (06/12/2024 2:38PM [facility]OWER) Color, ur Straw Yellow Clarity, ur Clear Clear [facility] Specific gravity, ur >1.042(H) 1.003 - 1.030 [facility] pH, urine 8.5 [facility] Comment: Interpretive Data U rine pH is affected by diet, medications, systemic acid-base disturbances, and renal tubular function. pH may affect urinary stone formation. For example, urine pH below 6.0 may help reduce the tendency for calcium phosphate stones and pH greater than 6.0 may reduce the tendency for uric acid stone formation. Source: [facility] Current Interpretive Data was last revised on 2017 Protein, ur ql Trace Negative [facility] Glucose, ur ql Negative Negative [facility] Ketones, ur Negative Negative [facility] Bilirubin, ur Negative Negative [facility] Blood, ur Negative Negative [facility] Urobilinogen, ur 2.0(A) <2.0 mg/dL [facility] Nitrite, ur Negative Negative [facility] Leukocyte esterase, ur Negative Negative [facility] UA reflex comment Reflex conditions for microscopic UA and culture not met. [facility] Urine, in and out catheter 06/12/2024 2:38 PM [facility]OWER 06/12/2024 3:47 PM CLE[employer]ROWER us Shakila Jung MD LAB MICROBIOLOGY - GENERAL ORDERABLES Final Result [facility] Department [place] [address] * (ABNORMAL) Differential, auto (06/12/2024 2:23 PM CLE[facility] THROWER) Neutrophil abs 9.9(H) 1.5 - 6.5 K/cumm Imm gran abs 0.1 0.0 - 0.1 K/cumm [facility] Lymphocyte abs 2.5 0.8 - 3.3 K/cumm [facility] Monocyte abs 1.0(H) 0.2 - 0.8 K/cumm [facility] Eosinophil abs 0.2 0.0 - 0.5 K/cumm [facility] Basophil abs 0.0 0.0 - 0.1 K/cumm [facility] Neutrophil pct 72.4 % [facility] Comment: Interpretive Data Percent cell count reference ranges are not reported, since discordance with absolute values may lead to misinterpretation of CBC data. Current Interpretive Data was last revised on 2017. Imm gran pct 0.4 % [facility] Comment: Interpretive Data Percent cell count reference ranges are not reported, since discordance with absolute values may lead to misinterpretation of CBC data. Current Interpretive Data was last revised on 2017. Lymphocyte pct 18.4 % [facility] Comment: Interpretive Data Percent cell count reference ranges are not reported, since discordance with absolute values may lead to misinterpretation of CBC data. Current Interpretive Data was last revised on 2017. Monocyte pct 7.2 % [facility] Comment: Interpretive Data Percent cell count reference ranges are not reported, since discordance with absolute values may lead to misinterpretation of CBC data. Current Interpretive Data was last revised on 2017. Eosinophil pct 1.5 % [facility] Comment: Interpretive Data Percent cell count reference ranges are not reported, since discordance with absolute values may lead to misinterpretation of CBC data. Current Interpretive Data was last revised on 2017. Basophil pct 0.1 % [facility] Comment: Interpretive Data Percent cell count reference ranges are not reported, since discordance with absolute values may lead to misinterpretation of CBC data. Current Interpretive Data was last revised on 2017. Blood 06/12/2024 2:23 PM CLEAT [facility]ROWER 06/12/2024 4:04 PM CLEAT THROWER us Shakila Jung MD LAB BLOOD ORDERABL ES Final Result [facility] Department [place] [address] * (ABNORMAL) CBC with auto differential (06/12/2024 2:23 PM CLEAT THROWER) WBC 13.7(H) 3.8 - 9.9 K/cumm Hgb 14.1 13.0 - 17.5 g/dL [facility] Hct 42.0 38.9 - 50.3 % [facility] Plt 171 150 - 400 K/cumm [facility] MPV 13.2(H) 9.1 - 12.3 fL [facility] RBC 4.36 4.30 - 5.80 M/cumm [facility] MCV 96.3 81.3 - 96.4 fL [facility] MCH 32.3 27.1 - 33.3 pg [facility] MCHC 33.6 32.3 - 35.7 g/dL [facility] RDW CV 13.5 11.1 - 14.9 % [facility] RDW SD 48.5(H) 35.7 - 48.1 fL [facility] NRBC abs 0.00 0.00 - 0.01 K/cumm [facility] Blood 06/12/2024 2:23 PM CLEAT THROWER 06/12/2024 4:04 PM CLEAT TH[employer]OWER Shakila Jung MD LAB BLOOD ORDERABL ES Final Result Performing Organization Address [facility] de Phone Number [facility] Department [place] [address] * Troponin I high-sensitivity 2-hour (06/12/2024 1:56 PM CLEAT THROWER) Trop I hs 10 <=35 ng/L Comment: Interpretive Data For further hscTnI resources including the diagnostic algorithm and an aid in interpretation, copy and paste this link: https://bjhlab.testcatalog.org/show/[email or web address] Current Interpretive Data last revised 2019. Trop I hs delta 1 ng/L [facility] Trop I hs interp Insignificant [facility] Blood 06/12/2024 1:56 PM CLEAT THROWER 06/12/2024 2:22 PM CLE[facility]OWER Shakila Jung MD LAB BLOOD ORDERABL ES Final Result Performing Organization Address [facility] de Phone Number [facility] Department [place] [address] * CT Abdomen Pelvis W Contrast (06/12/2024 12:22 PM CLEAT THROWER) Anatomical Region Laterality Modality Body N/A Computed Tomogra phy 06/12/2024 12:4 9 PM [facility]OWER Impressions 06/12/2024 12:49 PM CLEAT THROWER No acute findings in the abdomen/pelvis. Specifically, no bowel obstruction. Electronically signed by: Raul [place] M.D. Narrative 06/12/2024 12:49 PM CLE[facility]ROWER EXAMINATION: Computed tomography of the abdomen and [...] ED PERIPHERAL LINE INSERTION (06/12/2024 11:50 AM CLEAT THROWER) Narrative Shakila Jung MD - 06/12/2024 11:50 AM CLEAT THROWER Shakila Jung MD 06/12/2024 11:50 AM Peripheral [...] and COVID-19 PCR Nasopharyngeal (06/12/2024 11:39 AM CLEAT THROWER) [facility] COVID-19 RNA Negative Negative [facility] Influenza A RNA Negative Negative [facility] Influenza B RNA Negative Negative [facility] RSV RNA Negative Negative [facility] Comment: Interpretive data: Testing performed by [facility] ([phone]). This test is performed using the [employer] Xpert Xpress CoV-2/Flu/RSV plus assay. This is a multiplex, real-time reverse transcriptase PCR assay intended for the qualitative detection of nucleic acid from SARS-CoV-2, influenza A, influenza B, and respiratory syncytial virus. This assay has been cleared by the [place] Food and Drug administration. The performance characteristics have been verified by the [facility]. Results must be considered in the clinical context, and a negative result does not rule out infection. Interpretive Data last revised 2023 Nasopharyngeal 06/12/2024 11 :39 AM CLEAT THROWER 06/12/2024 12:55 PM CLEAT THROWER Narrative [facility] - 06/12/2024 1:39 PM CLEAT THROWER Is the Patient experiencing symptoms consistent with COVID?->Unknown Result [facility] Shakila Jung MD LAB MICROBIOLOGY - GENERAL ORDERABLES Final Result Performing Organization Address [facility] Co de Phone Number [facility] [place] [employer] [place] [place] [address] [facility] * POCT creatinine (06/12/2024 11:29 AM CLEAT THROWER) Creatinine POC 0.7 0.7 - 1.3 mg/dL Blood 06/12/2024 11:2 9 AM CLEAT THROWER 06/12/2024 11:29 AM CLEAT THROWER Result [facility] Shakila Jung MD LAB POCT ORDERABLE S - DEVICE Final Result Performing Organization Address [facility] de Phone Number [facility] [place] [employer] [place] [address] * Troponin I high-sensitivity series (baseline, 2hr, 4hr, 6hr) (06/12/2024 11:22 AM CLEAT THROWER) Trop I hs 9 <=35 ng/L Comment: Interpretive Data For further hscTnI resources including the diagnostic algorithm and an aid in interpretation, copy and paste this link: https://bjhlab.testcatalog.org/show/[email or web address] Current Interpretive Data last revised 2019. Blood 06/12/2024 11:2 2 AM CLEAT THROWER 06/12/2024 1:06 PM CLEAT THROWER Result [facility] Shakila Jung MD LAB BLOOD ORDERABL ES Final Result Performing Organization Address [facility] Co de Phone Number [facility] [place] [employer] [place] [address] * eGFR (06/12/2024 11:22 AM CLEAT THROWER) eGFR >90 >=60 mL/min/1. 73 m2 Comment: [...] reviewed 2021. Blood 06/12/2024 11:2 2 AM CLEAT THROWER 06/12/2024 1:07 PM CLEAT [facility]ROWER Shakila Jung MD LAB BLOOD ORDERABL ES Final Result [facility] Department [place] [address] * Differential, auto (06/12/2024 11:22 AM CLEAT THROWER) Pathologist [facility] Neutrophil abs See Comment 1.5 - 6.5 Comment:Credited, specimen c lotted. Imm gran abs See Comment 0.0 - 0.1 [facility] Comment:Credited, specimen c lotted. Lymphocyte abs See Comment 0.8 - 3.3 [facility] Comment:Credited, specimen c lotted. Monocyte abs See Comment 0.2 - 0.8 [facility] Comment:Credited, specimen c lotted. Eosinophil abs See Comment 0.0 - 0.5 [facility] Comment:Credited, specimen c lotted. Basophil abs See Comment 0.0 - 0.1 [facility] Comment:Credited, specimen c lotted. Neutrophil pct See Comment [facility] Comment: Credited, specimen clotted. Interpretive Data Percent cell count reference ranges are not reported, since discordance with absolute values may lead to misinterpretation of CBC data. Current Interpretive Data was last revised on 2017. Imm gran pct See Comment [facility] Comment: Credited, specimen clotted. Interpretive Data Percent cell count reference ranges are not reported, since discordance with absolute values may lead to misinterpretation of CBC data. Current Interpretive Data was last revised on 2017. Lymphocyte pct See Comment [facility] Comment: Credited, specimen clotted. Interpretive Data Percent cell count reference ranges are not reported, since discordance with absolute values may lead to misinterpretation of CBC data. Current Interpretive Data was last revised on 2017. Monocyte pct See Comment [facility] Comment: Credited, specimen clotted. Interpretive Data Percent cell count reference ranges are not reported, since discordance with absolute values may lead to misinterpretation of CBC data. Current Interpretive Data was last revised on 2017. Eosinophil pct See Comment [facility] Comment: Credited, specimen clotted. Interpretive Data Percent cell count reference ranges are not reported, since discordance with absolute values may lead to misinterpretation of CBC data. Current Interpretive Data was last revised on 2017. Basophil pct See Comment [facility] Comment: Credited, specimen clotted. Interpretive Data Percent cell count reference ranges are not reported, since discordance with absolute values may lead to misinterpretation of CBC data. Current Interpretive Data was last revised on 2017. Blood 06/12/2024 11:2 2 AM CLEAT THROWER 06/12/2024 1:07 PM CLEAT THROWER us Shakila Jung MD LAB BLOOD ORDERABL ES Edited Result - Final [facility] Department [place] [address] * CBC with auto differential (06/12/2024 11:22 AM CLEAT THROWER) WBC See Comment 3.8 - 9.9 Comment:Credited, specimen c lotted. Hgb See Comment 13.0 - 17.5 [facility] Comment:Credited, specimen c lotted. Hct See Comment 38.9 - 50.3 [facility] Comment:Credited, specimen c lotted. Plt See Comment 150 - 400 [facility] Comment: Credited, specimen clotted. spoke to ALFRED Velásquez 06/12/2024 14:17:24 CLEAT THROWER fv MPV See Comment 9.1 - 12.3 [facility] Comment:Credited, specimen c lotted. RBC See Comment 4.30 - 5.80 [facility] Comment:Credited, specimen c lotted. MCV See Comment 81.3 - 96.4 [facility] Comment:Credited, specimen c lotted. MCH See Comment 27.1 - 33.3 [facility] Comment:Credited, specimen c lotted. MCHC See Comment 32.3 - 35.7 [facility] Comment:Credited, specimen c lotted. RDW CV See Comment 11.1 - 14.9 [facility] Comment:Credited, specimen c lotted. RDW SD See Comment 35.7 - 48.1 [facility] Comment:Credited, specimen c lotted. NRBC abs See Comment 0.00 - 0.01 K/cumm [facility] Comment:Credited, specimen c lotted. Blood 06/12/2024 11:2 2 AM CLEAT THROWER 06/12/2024 1:07 PM CLEAT THROWER Shakila Jung MD LAB BLOOD ORDERABL ES Final Result [facility] Department [place] [address] * Lipase (06/12/2024 11:22 AM CLEAT THROWER) Lipase 24 10 - 99 Units/L Blood 06/12/2024 11:2 2 AM CLEAT THROWER 06/12/2024 1:07 PM CLEAT THROWER Shakila Jung MD LAB BLOOD ORDERABL ES Final Result Performing Organization Address [facility] Co de Phone Number [facility] [place] [address] * (ABNORMAL) Valproic acid level, total (06/12/2024 11:22 AM CLEAT THROWER) Valproic Acid 48.0(L) 50.0 - 100.0 mcg/mL Comment: Interpretive Data Therapeutic or toxic effects of anticonvulsant drugs may occur at different concentrations in different patients and the correlation between dose and clinical effect must be evaluated individually. Current interpretative data was last revised on 13. Blood 06/12/2024 11:2 2 AM CLEAT THROWER 06/12/2024 1:07 PM CLE[facility] THROWER Shakila Jung MD LAB BLOOD ORDERABL ES Final Result Performing Organization Address [facility] de Phone Number [facility] Department [place] [address] * (ABNORMAL) Comprehensive metabolic panel (06/12/2024 11:22 AM CLEAT THROWER) Pathologist [facility] Sodium 142 135 - 145 mmol/L Potassium, pl 4.6 3.3 - 4.9 mmol/L [facility] Comment:Hemolyzed; Potassium value may be falsely elevated by as much as 0.6-1.0 mmol/L. Suggest redraw and reanalysis. Chloride 101 97 - 110 mmol/L [facility] CO2 29 22 - 32 mmol/L [facility] Anion gap 12 2 - 15 mmol/L [facility] BUN 11 6 - 25 mg/dL [facility] Creatinine 0.60(L) 0.80 - 1.30 mg/dL [facility] Glucose 89 70 - 199 mg/dL [facility] Comment: Interpretive Data Fasting glucose >/= 126 [...] Calcium 10.3 8.5 - 10.3 mg/dL [facility] Bilirubin, total 0.3 0.1 - 1.2 mg/dL [facility] Protein, pl 8.5 6.5 - 8.5 g/dL [facility] Albumin 4.3 3.5 - 5.0 g/dL [facility] Alk phos 114 40 - 130 Units/L [facility] ALT 22 7 - 55 Units/L [facility] AST 45 10 - 50 Units/L [facility] Comment:Hemolyzed; result ma y be falsely elevated Blood 06/12/2024 11:2 2 AM CLEAT THROWER 06/12/2024 1:07 PM CLEAT THROWER Shakila Jung MD LAB BLOOD ORDERABL ES Final Result [facility] Department [place] [address] * ECG 12-LEAD (06/12/2024 11:01 AM CLEAT THROWER) Narrative [facility] - 06/12/2024 11:01 AM CLEAT THROWER Shakila Jung MD 06/12/2024 11:02 AM ECG [...] Jung MD ECG ORDERABLES Fi nal Result [facility] * TNI with LIPID PANEL (08/24/2017 4:57 PM CDT) Troponin I < 0.300 0.000 - 0.300 ng/mL 08/24/2017 5:29 PM T [facility] [employer] HISTORICAL RESULTS Comment: Reference using ZAC Chemiluminescence Negative: Repeat in 4-6 hours as indicated. Triglycerides 34 0 - 199 mg/dL 08/24/2017 5:30 PM T [facility] [employer] HISTORICAL RESULTS Comment:12 hr pc highly avani mmended for Triglyceride Cholesterol 129 0 - 199 mg/dL 08/24/2017 5:30 PM T [facility] [employer] HISTORICAL RESULTS Comment: Borderline: 200-239 High Risk: >239 HDL Cholesterol 71 mg/dL 8 5:30 PM T [facility] [employer] HISTORICAL RESULTS Comment: Reference Ranges: Males: >=40 mg/dL Females: >=50 mg/dL LDL Cholesterol, Calc 51 0 - 130 mg/dL 08/24/2017 5:30 PM T [facility] [employer] HISTORICAL RESULTS Comment:High Risk > 159 mg/d L Cholesterol/HDL Ratio 1.8 08/24/2017 5:30 PM T [facility] [employer] HISTORICAL RESULTS Comment: Cholesterol / HDL Ratio 3.5:1 or less is desirable. Cholesterol / HDL Ratio greater than 5:1 is considered higher risk for developing heart disease. 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 Source: [facility] [employer] 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 Source: [facility] [employer] 09/18/22 Acinetobacter os 09/18/[address] [facility] Advance Directives For more information, please contact: [phone] Documents on File Type Date Recorded Patient Dag Coater Expl anation ADVANCE DIRECTIVE 10/08/2012 12:00 AM SANDRA R OF [employer] FINANCIAL/MEDICAL * Full Code (Latest Code Status on File) Date Activated Date Inactivated Comments 06/12/2024 3:22 PM 06/28/2024 9:30 PM * Full Code Date Activated Date Inactivated Comments 12/10/2020 9:05 AM 12/13/2020 10:44 PM Care Teams Endoscopy Specialty Technician Relationship Specialty Start Date End Date Marielena Smallwood MD [address] [place] [address] PCP - General Family Practice 07/08/24
--- OUTSIDE RECORDS SUMMARY | 2024-08-09 01:05 | XMS_ITS | Encounter Summary ---
Author Organization [facility] Address [address] [facility] [place] [address] Care Team Providers Care Coal Bagger Name Role Phone Elizabeth Sullivan RN Unavailable [phone] Dany Monsivais MD Primary Care Provider [phone] Reason for Visit * Reason Comments Vomiting Pt BIBEMS from SNF f or abd pain past few days, pt vomited at snf and staff called EMS, pt suctioned by EMS 2x, pt hx of TBI, Trach, HTN, aphasia, epilepsy, pt arrives HR 107, 94% 8L blowby, * Auth/Cert (Routine) Specialty Diagnoses / Procedures Referred By Contac t Referred To Contact Referral ID Status Reason Start Date Expiration Date Visits Re quested Visits Authorized [id number] 1 1 Encounter Details Date Type Department Care Team (Latest Contact Info) Description 08/02/2024 4:31 PM ANIMAL CARE ATTENDANT - 08/08/2024 8:48 PM CDT Hospital Encounter [facility] [address] [place] [address] Elmo Johnson MD [address] [facility] [place] [id number] Lowell Cao DO [address] [facility] [address] [place] [address] Marianne Daniels MD [address] [facility] [address] DIV OF [facility] [place] [address] Yary James MD [address] [place] [place] [address] Reina Rivera MD [address] [place] [address] Internal Medicine Discharge Disposition: Fpc or Supportive Care Social History Tobacco Use Types Packs/Day Years Used Date Smoking Tobacco: Former Cigarettes 1 15 Smokeless Tobacco: Never Alcohol Use Standard Drinks/Week Comments No 0 (1 standard drink = 0.6 oz pur e alcohol) last drink 2015 AUDIT-C Answer Date Recorded Q1: How often do you have a drink containing alcohol? Never 07/18/2024 Q2: How many drinks containi ng alcohol do you have on a typical day when you are drinking? Patient does not drink Q3: How often do you have si x or more drinks on one occasion? Never 07/18/2024 Overall Financial Resource Strain (CARDIA) Answe r Date Recorded How hard is it for you to pa y for the very basics like food, housing, medical care, and heating? Not hard at all 08/06/2024 [facility] - Occupational Stress Questionnaire Answer Date Recorded Do you feel stress - tense, restless, nervous, or anxious, or unable to sleep at night because your mind is troubled all the time - these days? Only a little 08/06/2024 Hunger Vital Sign Answer Date Recorded Within the past 12 months, y ou worried that your food would run out before you got the money to buy more. Never true 08/07/19 25 Within the past 12 months, t he food you bought just didn't last and you didn't have money to get more. Never true 08/06/2024 PRAPARE - Transportation Answer Date Re corded In the past 12 months, has l ack of transportation kept you from medical appointments or from getting medications? No 07/28 In the past 12 months, has l ack of transportation kept you from meetings, work, or from getting things needed for daily living? No 08/06/2024 Housing Stability Vital Sign Answer Vinay e [...] in a snf (including now)? No 06/19/2023 Housing Stability Vital Sign Answer Vinay e Recorded In the last 12 months, was t here a time when you were not able to pay the mortgage or rent on time? No 08/06/2024 In the past 12 months, how m any times have you moved where you were living? 1 08/06/2024 At any time in the past 12 m [place], were you homeless or living in a snf (including now)? No 08/06/2024 Sex and Gender Information Value Date Recorded Sex Assigned at Not on file Gender Identity Not on file Sexual Orientation Not on file documented as of this encounter Last Filed Vital Signs Vital Sign Reading Time Taken Comments Blood Pressure 154/91 08/08/2024 7:42 PM CDT Pulse 77 08/08/2024 7:42 PM CDT Temperature 36.8 C (98.2 F) 08/08/2024 7:42 PM CDT Respiratory Rate 18 08/08/2024 7:42 PM CDT Oxygen Saturation 100% 08/08/2024 7:42 PM CDT Inhaled Oxygen Concentration 35% 08/08/2024 5 :49 PM CDT Weight 72.6 kg (160 lb) 08/04/2024 12:00 AM ANIMAL CARE ATTENDANT Height 175.3 cm (5' 9.02 ) 08/04/2024 12:[address] Body Mass Index 23.62 08/04/2024 12:00 AM ANIMAL CARE ATTENDANT documented in this encounter Functional Status Functional Status Response Date of Assess ment Is person deaf or have serious hearing difficult y? No 07/17/2024 Is person blind or have serious difficulty seein g? No 07/17/2024 Does person have serious dif ficulty walking/climbing stairs? Yes 07/17/2024 Does person have difficulty dressing/bathing? Ye s 07/17/2024 Does person have difficulty doing errands alone? Yes 07/17/2024 Cognitive Status Response Date of Assessm ent Does person have difficulty concentrating/remembering/making decisions? Yes 07/17/2024 documented as of this encounter Discharge Summaries * Reina Rivera MD - 08/08/2024 7:42 AM CDT HOSPITALIST DISCHARGE SUMMARY NAME: Bi Tabor : 1960 DATE OF ADMISSION: 08/02/2024 DATE OF DISCHARGE: 08/08/2024 FINAL DIAGNOSES: Include all new and active diagnoses. 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 If possible, use liquid formulation of medications and avoid crushed pills to maintain catheter patency. Do not place dressing underneath the round rubber retention device. Strict NPO, continue tube feeds PENDING TEST RESULTS: none INCIDENTAL FINDINGS REQUIRING FOLLOW UP: 1.6 cm enhancing nodule in the right aspect of the prostate gland, PSA WNL. READMISSION RISK SCORE: 21+: high 30 day readmission risk 0-20: low-moderate 30 day readmission risk 22 at 7:42 AM 08/08/2024. PRESENTING HISTORY: Per Dr. Stark: Bi Tabor is a 64-year-old male with a past medical history of hypertension, tracheostomy, TBI, aphasia, epilepsy who presented due to abdominal pain that began yesterday. Patient reports abdominal pain was initially relieved by Tylenol. However, pain began to worsen and there was 1 episode of coffee-ground emesis so the nursing facility where he stays r sent him to the ED for further evaluation. The patient denies fever, chills, shortness of breath, nausea, vomiting, diarrhea, chest pain. Patient endorses abdominal pain, cough, and copious secretions. In the ED, afebrile, VSS, in NAD. Labs notable for Cr 0.57 (around baseline), albumin 1. UA showed 500 leukocyte, nitrite positive, >100 WBC's, 1+ bacteria. Patient was started on Rocephin. CXR basilar atelectasis, no pneumothorax no pleural effusions. HPI difficult to obtain due to communication barrier with tracheostomy. Discussion with patient andchart review for HPI. HOSPITAL COURSE: (include consults and procedure details) A 64-year-old male with a past medical history of hypertension, tracheostomy, TBI, aphasia, epilepsy who presented due to abdominal pain that began yesterday. Patient reports abdominal pain was initially relieved by Tylenol. However, pain began to worsen and there was 1 episode of coffee-ground emesis so the nursing facility where he stays r sent him to the ED for further evaluation. The patient denies fever, chills, shortness of breath, nausea, vomiting, diarrhea, chest pain. Patient endorses abdominal pain, cough, and copious secretions. In the ED, afebrile, VSS, in NAD. Labs notable for Cr0.57 (around baseline), albumin 1. UA showed 500 leukocyte, nitrite positive, >100 WBC's, 1+ bacteria. Patient was started on Rocephin. CXR basilar atelectasis, no pneumothorax no pleural effusions. Patient admitted to Medicine for management of UTI and concern for coffee-ground emesis. He was initially started on ceftriaxone but preliminary urine culture with growth of Pseudomonas, transitioned to Zosyn on 08/05/2024. Unfortunately, the patient pulled his PEG tube out on 08/05/2024, replaced by IR on 08/06/2024 Abdominal pain, POA History dysphagia C/B chronic aspiration s/p peg Chronic PEG dependence Reported Coffee-ground emesis, but no melena noted, Concern for UGIB?? - last EGD 07/18/2024: did not show signs of active bleeding, GJ tube found in good position - apixaban discontinued at discharge last admission - Protonix 40 mg b.i.d. - tube feeds resumed, patient is strict NPO -CBC monitoring daily and monitor for any signs of overt GI bleeding - nausea meds prn - hold aspirin in hospital, will resume at ms Complicated UTI - urine culture with growth of Pseudomonas and Corynebacterium -? Likely contaminants - patient had been started on ceftriaxone on 08/02 through 08/04, transitioned to Zosyn on 08/05/2024, EOT 08/07/24 Dislodged PEG tube -replaced by IR 08/06 Hypertension - metoprolol 5 mg IV Q 8 hours TBI c/b epilepsy (L temporo-occipital lobes) - home regimen: Keppra 2000 mg b.i.d., lacosamide 200 mg b.i.d., clobazam 10 mg b.i.d., - continue home Keppra, lacosamide, clobazam - seizure and aspiration precautions Chronic hypoxic respiratory failure s/p tracheostomy - copious secretions on exam - continue trach care per nursing /RT Hyperlipidemia PAD s/p L AKA - continue home Lipitor 40 mg - fall precautions Moderate protein calorie malnutrition -resumed tube feedings -proper nutrition will be very important for recovery from acute illness and prevention of rehospitalization POA ACTIVATED STATUS: NO RADIOLOGY: (last 7 days) + additional pertinent studies IR Perc GJ Tube Replacement Result Date: 08/06/2024 Impression: Successful exchange of the existing 18 [place] gastrojejunostomy catheter for a new 18 [place] gastrojejunostomy catheter under fluoroscopic guidance, as described above. Note: The cathetercan be used now. Flush the catheter with 30 mL of water before and after each use. Recommend liquid formulation of medications. Avoid crushed pills to maintain patency. Please contact the pharmacy for better formulation if any pills need to be administered through the catheter. In case of abdominaldistension or discomfort, stop feeding and call the IR service. I, Dr. Payton, was present and performed/supervised the entire procedure. > Interpreting Provider: Krystal Payton on 08/06/2024 3: [address] Abdomen Wo Contrast Result Date: 08/06/2024 Impression: 1.Appropriately positioned PEG tube with tip in the gastric body. 2.No acute process identified in the abdomen or pelvis. 3.A few small nonobstructing stones in both kidneys. > Dictated by Yessica Lovell MD, (radiology specialist). I, Bebo Kuo MD have personally reviewed and interpreted this examination/study. > Interpreting Provider: Bebo Kuo MD on 08/06/2024 1:31 PM XR Abdomen Kub Portable Result Date: 08/05/2024 IMPRESSION: No radiographic evidence of acute intra-abdominal process. Report dictated by Sierra Lyman Dr, MD (radiology specialist). I, Ramon Ross MD have personally reviewed and interpreted this examination/study. > Interpreting Provider: Ramon Ross MD on 08/05/2024 5:[address] Chest Abdomen Pelvis W Cont Result Date: 08/02/2024 Impression: 1.Trace left-sided pleural effusion, bilateral dependent and subsegmental atelectasis, likely from retained secretions. 2.Coronary artery atherosclerotic disease. Findings indicating age indeterminate left ventricular myocardial infarction. 3.Small hiatal hernia and mild diffuse mural thickening of the esophagus suggesting reflux esophagitis. 4.Punctate nonobstructing kidney stone in the upper pole of the left kidney. 5.Enhancing liver lesion better characterized on prior study and likely representing flash filling hemangiomas. 6.1.6 cm enhancing nodule in the right aspect of the prostate gland, correlate with PSA. 7.Diffuse bladder wall thickening could be secondary to bladder outlet obstruction and associated cystitis. > Dictated by Justin Burrell MD (radiology specialist). Bebo Thomason MD have personally reviewed and interpreted this examination/study. > Interpreting Provider: Bebo Kuo MD on 08/02/2024 11:19 PM ADDITIONAL PERTINENT STUDIES: RECENT/NOTABLE LABS: include pertinent positives Recent Labs Component Name 08/05/24 0102 POTASSIUM 4.0 CO2 24 BUN 16 CREATININE 0.63* EGFR >90 Recent Labs Component Name 08/05/24 010 WBC 6.3 HGB 12.8* HCT 38.5* PLTCOUNT 187 Recent Labs Component Name 08/05/24 0102 08/04/24 1212 08/03/24 0518 INR 1.1 1.1 1.1 VITALS/MENTAL STATUS/NOTIBLE EXAM FINDINGS Most recent weight: Weight: 72.6 kg (160 lb) (08/04/24 0000) BP 133/65 (BP Location: Right arm, Patient Position: Lying) Pulse 73 Temp 98.2 ??F (36.8 ??C) (Oral) Resp 18 Ht 1.753 m (5' 9.02 ) Wt 72.6 kg (160 lb) SpO2 98% Exam: General: NAD, appears comfortable, not diaphoretic HEENT: ATNC, EOMI, sclera anicteric, MMM, tracheostomy in place Cardiac: RRR, normal S1 and S2, no m/r/g Respiratory: LCTAB, no w/r/c Abdomen: Soft, NTND, bs+, peg tube in place, Extremities: No edema, no erythema, left AKA noted Skin: No rash, no ecchymosis DISCHARGE MEDICATIONS AND ALLERGIES This list of medications is preliminary and tentative: please see the Patient Discharge Instructions for patients discharged home or the Facility Transfer Order for the final and accurate medication list. Current Discharge Medication List UNREVIEWED MEDICATIONS Instructions Authorizing Provider acetaminophen 325 MG tablet Commonly known as: Tylenol 2 (two) tablets by Enteral Tube route every 6 hours as needed Maximum allowable Acetaminophen amount = 4 Grams (4000 mg) / 24 hours. Felicitas Almanzar albuterol-ipratropium 0.5-2.5 (3) MG/3ML nebulizer solution Commonly known as: Duo-Neb Inhale 3 mL by mouth every 6 hours as needed for Shortness of Breath or Wheezing artificial tears ophthalmic ointment Instill into both eyes every 8 hours Jacob Mccurdy MD aspirin 81 MG chew tablet Commonly known as: Aspirin 1 (one) tablet by Enteral Tube route once daily atorvastatin 40 MG tablet Commonly known as: Lipitor Quantity Dispensed: 30 tablet 1 (one) tablet by Enteral Tube route at bedtime Paige Brewster MD bisacodyl 10 MG suppository Commonly known as: Dulcolax Insert 1 (one) suppository into the rectum once daily as needed for Constipation calcium carbonate (500 mg elemental Ca/5 mL) 1250 MG/5ML suspension 5 mL by Enteral Tube route every 6 hours as needed Paige Brewster MD cloBAZam 10 MG tablet Commonly known as: Onfi Quantity Dispensed: 60 tablet Take 1 (one) tablet by mouth 2 times daily Chai Pinto finasteride 5 MG tablet Commonly known as: Proscar 1 (one) tablet by Per G Tube route once daily FLEET ENEMA RE folic acid 1 MG tablet Commonly known as: Folvite 1 (one) tablet by Enteral Tube route once daily Dante Nuno MD glycopyrrolate 1 MG tablet Commonly known as: Robinul 1 (one) tablet by Per G Tube route 2 times daily guaiFENesin 100 MG/5ML solution Commonly known as: Robitussin Quantity Dispensed: 200 mL 15 mL by Enteral Tube route Every 6 Hours (03,09,15,21) Paige Brewster MD lacosamide 10 MG/ML oral solution Commonly known as: Vimpat 20 mL by Per G Tube route 2 times daily levETIRAcetam 100 MG/ML oral solution Commonly known as: Keppra Quantity Dispensed: 1050 mL 17.5 mL by Enteral Tube route 2 times daily for 90 days Parag Benton metoprolol tartrate IR 25 MG tablet Commonly known as: Lopressor 1 (one) tablet by Enteral Tube route 2 times daily Miller Gomes Milk of Magnesia 400 MG/5ML suspension Generic drug: magnesium hydroxide Take 30 mL by mouth as needed for Constipation ondansetron 4 MG tablet Commonly known as: Zofran 1 (one) tablet by Enteral Tube route every 6 hours as needed for Nausea/Vomiting pantoprazole 40 MG packet Commonly known as: Protonix Take 1 (one) packet by mouth 2 times daily for 60 days Parag Benton polyethylene glycol 3350 17 g packet Commonly [...] mL by Per G Tube route every 8 hours Parag Benton ALLERGIES: Allergies Allergen Reactions Clonazepam Psychiatric hallucinations DISCHARGE INSTRUCTIONS ISOLATION PRECAUTIONS Contact. 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 I spent 60 minutes in addition to direct patient care summarizing this patient's hospital stay, reviewing and updating the inpatient problem list, reviewing discharge medications, instructions, discussing discharge care planand discharge follow up labs/studies/doctor visits with the patient and or POA/family. Reina Rivera MD documented in this encounter Discharge Instructions * Discharge Instructions* Reina Rivera MD - 08/08/2024 4:08 PM CDT DISCHARGE INSTRUCTIONS? A MESSAGE FROM YOUR DOCTORS:?? Dear Bi Tabor,? You were admitted for abdominal pain and coffee-ground emesis with suspected complicated UTI. You were treated with IV PPI followed by IV antibiotics.? ? DISCHARGE MEDICATIONS:? If you have any questions about your medications, please ask the pharmacy when you moss picker your prescription. You may also call your primary provider if you still have questions.? ? 2. FOLLOW-UP:? A) Below are your scheduled appointments? Future Appointments Thursday December 05, 2024 1:00 PM (Arrive by 12:45 PM) Appointment with Sean Raymundo at [facility] - Neurology ([phone]) [address] [place] [phone] ? -If you are not going home but to Rehab or Long Term, ask the providers there about going to [...] ? 3.? Wound Care instructions IF APPLICABLE? -? Flush the catheter with 30 mL of water before and after each use. If possible, use liquid formulation of medications and avoid crushed pills to maintain catheter patency. Do not place dressing underneath the round rubber retention device. ? 4. ?Lifestyle Modifications? -It is very [...] in your care!? ? Internal Medicine Team? [facility] [address] [facility] [place] [facility]? [place] [address]? documented in this encounter Medications at Time of Discharge Medication Sig Dispensed Refills Start Date End Date acetaminophen (Tylenol) 325 MG tablet 2 (two) tablets by Enteral Tube route 3 times daily Maximum allowable Acetaminophen amount = 4 Grams (4000 mg) / 24 hours. Pt takes 160 mg/5mL liquid which is the same as 325 mg tab 08/08/2024 albuterol-ipratropium (Duo-Neb) 0.5-2.5 (3) MG/3ML nebulizer solution Inhale 3 mL by mouth every 6 hours as needed for Shortness of Breath or Wheezing artificial tears ophthalmic ointment Instill into both [...] 2 times daily 60 tablet 5 05/15/2024 finasteride (Proscar) 5 MG tablet 1 (one) tablet by Per G Tube route once daily 05/16/2024 folic acid (Folvite) 1 MG tablet 1 (one) tablet by Enteral Tube route once daily 04/01/2022 glycopyrrolate (Robinul) 1 MG tablet 1 (one) tablet by Per G Tube route 2 times daily 05/08/2024 guaiFENesin (Robitussin) 100 MG/5ML solution 15 mL by Enteral Tube route Every 6 Hours (03,,15,21) 200 mL 02/28/2023 lacosamide (Vimpat) 10 MG/ML oral solution 20 mL by Per G Tube route 2 times daily levETIRAcetam (Keppra) 100 MG/ML oral solution 17.5 mL by Enteral Tube route 2 times daily for 90 days 1050 mL 2 07/18/2024 10/16/2024 magnesium hydroxide (Milk of Magnesia) 400 MG/5ML suspension Take 30 mL by mouth as needed for Constipation metoprolol tartrate IR (Lopressor) 25 MG tablet 1 (one) tablet by Enteral Tube route 2 times daily 12/15/2022 ondansetron (Zofran) 4 MG tablet 1 (one) tablet by Enteral Tube route every 6 hours as needed for Nausea/Vomiting pantoprazole (Protonix) 40 MG packet Take 1 (one) packet by mouth 2 times daily for 60 days 07/18/2024 09/16/2024 pantoprazole EC (Protonix) 40 MG tablet Take 1 (one) tablet by mouth 2 times daily 08/08/2024 polyethylene glycol 3350 (Miralax) 17 g packet 17 (seventeen) g by Enteral Tube route 2 times daily 15 packet 02/28/2023 senna (Senokot) 8.6 MG tablet 1 (one) tablet by Enteral Tube route once daily 30 tablet 03/01/2023 Sodium Phosphates (FLEET ENEMA RE) thiamine (Vitamin B-1) 100 MG tablet 1 (one) tablet by Enteral Tube route once daily 04/01/2022 valproic acid (Depakene) 250 MG/5ML solution 10 mL by Per G Tube route every 8 hours 07/18/2024 documented as of this encounter Progress Notes * Zulma Ashraf RN - 08/08/2024 6:21 PM CDT Report given to Lali at [facility] after she called me back * Zulma Ashraf RN - 08/08/2024 6:11 PM CDT Called again to [facility] Begum to give report, this time I left my name and phone number with the lady who answered the phone and she will have the nurse call back for report. * Zulma Ashraf RN - 08/08/2024 5:30 PM CDT Attempted to call report to Barbie two times without success. No one answered the call when sent to the [address] [place] [address]. * Alondra Gregory MSW - 08/08/2024 3:39 PM CDT Facility Transfer Note Actual Level of Care/Dispostion Details Actual Level of Care at Discharge: Long Term - Non Skilled Payor Source: Medicaid Facility Name: (include name of person confirming admission): Massiel Begum [address] Made Aware of Special Needs (if applicable): N/A RN Call Report to: [phone] Ask for [address] [place] [address] Nurse RN Fax D/C Orders to: [phone] Transportation: [facility] Certificate of Medical Necessity rationale: Date/time of transfer: 08/08/2024 at 5:30pm Accepting MD: Dr. Jack Arroyo Completed and Signed [id number] (if applicable): N/A Physician signed: N/A Family/Other Notified of Transfer (name/phone): Extended Emergency Contact Information Primary Emergency Contact: Adriane Hilliard Mobile Relation: Sister Ups Driver needed? No Secondary Emergency Contact: [facility] Relation: Brother Authorization Skilled Care: None Authorization for Transportation: Verified Qualifying Stay(Skilled Only, 3 consecutive days): NOT APPLICABLE Present hospitalization: N/A Past 30 days: N/A Patient discharged to SNF under Medicare SNF 3-day waiver? No Comments: Sw confirmed with Yaz, the liaison at [facility], that pt can return this evening. She told SW there is not cutoff time for the pt's arrival. Mancia will be here at 5:30pm to moss picker the pt. DC paperwork has been faxed. Ashwin called pt's sister Adriane to let her know about the dc today. CLARITA Penn [phone] * Zulma Ashraf RN - 08/08/2024 1:43 PM CDT Problem: Nutrient: Malnutrition Goal: Enteral/parenteral nutrition prescription will be consistent with estimated needs Outcome: Progressing Problem: Fall Risk Goal: [...] engage in desired activity. Outcome: Progressing Problem: Skin/Tissue Integrity - Adult Goal: Skin integrity remains intact Description: INTERVENTIONS: Outcome: Progressing Goal: Incisions, wounds, or drain sites healing without S/S of infection Description: INFECTIONS: Outcome: Progressing Goal: Oral mucous membranes remain intact Description: INTERVENTIONS: Outcome: Progressing * Sunitha Velazquez RN - 08/08/2024 1:18 PM CDT Care Coordination Progress Note Expected Discharge Date: 08/10/2024 Discharge Plan: [facility] Discussed in MDR and pt is ready for discharge. Attending just sent a message inquiring about f/u with the facility. Call placed to Yaz in Admissions @ [phone] to inform her that pt is ready to return today.Left a VM. Awaiting a return call. ASHWIN Valencia has been made aware of the same. Family Support (Name and Phone): Extended Emergency Contact Information Primary Emergency Contact: Adriane Hilliard Mobile Relation: Sister Ups Driver needed? No Secondary Emergency Contact: [facility] Relation: Brother Transportation at Discharge: Ambulance: READMISSION RISK SCORE is 22 at 1:19 PM 08/08/2024.: Name: Sunitha Velazquez RN [id number] * Fern Ornelas RN - 08/08/2024 5:00 AM CDT Problem: Nutrient: Malnutrition Goal: Enteral/parenteral nutrition prescription will be consistent with estimated needs Outcome: Adequate for Discharge Problem: Pain/Discomfort Goal: Patient exhibits reduced pain/discomfort as evidenced by pain scores Outcome: Adequate for Discharge Goal: Patient uses pharmacological and non-pharmacological pain management strategies. Outcome: Adequate for Discharge Goal: Patient verbalizes acceptable level of pain relief and ability to engage in desired activity. Outcome: Adequate for Discharge Problem: Skin/Tissue Integrity - Adult Goal: Skin integrity remains intact Description: INTERVENTIONS: Outcome: Adequate for Discharge Goal: Incisions, wounds, or drain sites healing without S/S of infection Description: INFECTIONS: Outcome: Adequate for Discharge Goal: Oral mucous membranes remain intact Description: INTERVENTIONS: Outcome: Adequate for Discharge * Alondra Gregory MSW - 08/07/2024 3:06 PM CDT Social Work Progress Note Discharge Plan Disposition: [facility] - [facility] Transportation (if ambulance rationale): Transportation at discharge: Ambulance Anticipated Discharge Date: 08/10/2024 Contacts: Extended Emergency Contact Information Primary Emergency Contact: Adriane Hilliard Mobile Relation: Sister Ups Driver needed? No Secondary Emergency Contact: [facility] Relation: Brother SW spoke with Yaz in Admissions at [facility] and informed her pt may be medicallyready to discharge tomorrow. Yaz asks that SW or CM call her tomorrow after MDR to coordinate a time for the pt to return. Yaz's direct line is [phone]. Name/Phone number: CLARITA Penn, * Alondra Gregory MSW - 08/07/2024 9:36 AM CDT Social Work Progress Note Discharge Plan Disposition: [facility] Transportation (if ambulance rationale): Transportation at discharge: Ambulance Anticipated Discharge Date: 08/10/2024 Contacts: Extended Emergency Contact Information Primary Emergency Contact: Adriane Hilliard Mobile Relation: Sister Ups Driver needed? No Secondary Emergency Contact: [facility] Relation: Brother ASHWIN left for Admissions about [facility] ([phone] Ext. [phone]). Name/Phone number: Alondra Gregory MSW, [phone] * Reina Rivera MD - 08/07/2024 8:47 AM CDT Images from the original note were not included. [facility] Internal Medicine Progress Note Name: Bi Tabor Room/Bed: 7733/1 : 1960 64 year old PCP: Dany Monsivais MD Admit Date/Time: 08/02/2024 4:31 PM LOS: 1 Subjective Interval update: On evaluation, the patient appears to be uncomfortable and indicates pain around PEG tube placementsite. Hospital course: A 64-year-old male with a past medical history of hypertension, tracheostomy, TBI, aphasia, epilepsy who presented due to abdominal pain that began yesterday. Patient reports abdominal pain was initially relieved by Tylenol. However, pain began to worsen and there was 1 episode of coffee-ground emesis so the nursing facility where he stays r sent him to the ED for further evaluation. The patient denies fever, chills, shortness of breath, nausea, vomiting, diarrhea, chest pain. Patient endorses abdominal pain, cough, and copious secretions. In the ED, afebrile, VSS, in NAD. Labs notable for Cr0.57 (around baseline), albumin 1. UA showed 500 leukocyte, nitrite positive, >100 WBC's, 1+ bacteria. Patient was started on Rocephin. CXR basilar atelectasis, no pneumothorax no pleural effusions. Patient admitted to Medicine for management of UTI and concern for coffee-ground emesis. He was initially started on ceftriaxone but preliminary urine culture with growth of Pseudomonas, transitioned to Zosyn on 08/05/2024. Unfortunately, the patient pulled his PEG tube out on 08/05/2024, replaced by IR on 08/06/2024 Objective Recent Vitals: Temp: [97.5 ??F (36.4 ??C)-98.4 ??F (36.9 ??C)] 98.4 ??F (36.9 ??C) Pulse: [60-80] 70 Resp: [12-18] 18 BP: (120-176)/(75-104) 120/76 O2 %: [35 %] 35 % Weight change: Intake/Output Summary (Last 24 hours) at 08/07/2024 0847 Last data filed at 08/07/2024 0608 Gross per 24 hour Intake 300 ml Output 800 ml Net -500 ml Physical Exam: General: NAD, appears uncomfortable, not diaphoretic HEENT: ATNC, EOMI, sclera anicteric, MMM, tracheostomy in place Cardiac: RRR, normal S1 and S2, no m/r/g Respiratory: LCTAB, no w/r/c Abdomen: Soft, NTND, bs+, peg tube in place, tenderness around insertion site Extremities: No edema, no erythema, left AKA noted Skin: No rash, no ecchymosis Largely unchanged from 08/05/2024 Scheduled Medications: 0.9% NaCl 3 mL Intracatheter q8h [Held by Provider] atorvastatin 40 mg Enteral Tube AT BEDTIME bisacodyl 10 mg Rectal BID [Held by Provider] cloBAZam 10 mg Enteral Tube BID [Held by Provider] folic acid 1 mg Enteral Tube QDAY [Held by Provider] glycopyrrolate 1 mg Enteral Tube BID [Held by Provider] guaiFENesin 15 mL Enteral Tube Every 6 Hours (,,,) lacosamide 200 mg Intravenous BID levETIRAcetam 1,750 mg Intravenous q12h metoprolol 5 mg Intravenous q8h [Held by Provider] metoprolol tartrate IR 25 mg Enteral Tube BID pantoprazole 40 mg Intravenous QDAY piperacillin-tazobactam 4.5 g Intravenous q8h [Held by Provider] polyethylene glycol 3350 17 g Per G Tube QDAY [Held by Provider] sennosides 8.6 mg Enteral Tube QDAY [Held by Provider] thiamine 100 mg Enteral Tube QDAY valproate 500 mg Intravenous q8h [Held by Provider] valproic acid 500 mg Per G Tube q8h PRN Medications: SALINE LOCK, INSERT AND MAINTAIN AND 0.9% NaCl AND 0.9% NaCl albuterol-ipratropium bisacodyl calcium carbonate (500 mg elemental Ca/5 mL) dextrose IV for hypoglycemia OR dextrose IV for hypoglycemia OR glucagon glucose (Diabetic Use) gel hydrALAZINE morphine ondansetron oxyCODONE Continuous Infusions: dextrose 5 % and lactated ringers, , Last Rate: 75 mL/hr at 08/05/24 1215 Laboratory Data Recent Labs Component Name 08/05/24 0102 08/04/24 1212 08/03/24 0518 WBC 6.3 6.7 9.0 HGB 12.8* 12.8* 13.6 HCT 38.5* 38.0* 40.1 PLTCOUNT 187 201 240 MCV 94.4 95.2 94.8 Recent Labs Component Name 08/05/24 0102 08/04/24 1212 08/03/24 0518 06/08/24 0411 09/14/23 0618 09/09/23 0655 09/09/23 0430 PT 13.8 13.9 14.2 - - - 17.6* INR 1.1 1.1 1.1 - - - 1.5 PTT - - - - 31.6 >200.0* >200.0* - = values in this interval not displayed. Recent Labs Component Name 08/05/24 0102 08/04/24 1212 08/03/24 0518 NA 140 140 140 POTASSIUM 4.0 4.0 4.4 CL 107 107 107 CO2 BUN 16 16 14 CREATININE 0.63* 0.61* 0.65* Recent Labs Component Name 08/05/24 0102 08/04/24 1212 08/03/24 0518 CALCIUM 8.9 9.2 9.8 PHOS 3.6 3.8 3.7 Recent Labs Component Name 08/05/24 0102 08/04/24 1212 08/03/24 0518 08/02/24 1708 08/02/24 0203 07/27/24 1826 06/09/23 1314 02/28/23 0541 08/28/22 1251 06/30/22 1039 03/03/18 1745 01/30/18 1255 PROT - - - 7.6 7.2 7.2 - 6.5 - 6.2 - 6.9 ALB 3.3* 3.5 3.7 3.8 3.6 3.4 - 2.5* - 2.2* - 3.7 ALKPHOS - - - 94 92 95 - 79 - 65 - 75 AST - - - 25 15 15 - 13 - 13 - 14 ALT - - - 14 10 13 - 7 - 5 - 10 TBILI - - - 0.4 0.3 0.3 - 0.2 - 0.3 - 0.4 DBILI - - - - - - - 0.1 - 0.2 - 0.2 - = values in this interval not displayed. Recent Labs Component Name 07/16/24 2244 02/19/24 0200 01/02/23 1008 07/01/22 1634 06/28/22 0141 06/27/22 2215 05/30/22 1750 02/25/21 1134 05/15/19 0911 CKTOTAL 92 164 51 - - - - - 63 CKMBCK2 - - - - - - - - 0.8 TROPONINI - - - - <0.010 <0.010 <0.010 - <0.010 - = values in this interval not displayed. Recent Labs Component Name 06/16/23 0251 08/31/22 0923 07/04/22 0145 VANCORNDM - - 22.0 VANCTROUGH 17.7 - - - = values in this interval not displayed. Microbiology Results (Displays last 21 days for this encounter ONLY) Procedure Component Value - Date/Time CULTURE URINE [[id number]] (Abnormal) (Susceptibility) Collected: 08/03/24 0853 Lab Status: Edited Result - FINAL Specimen: Urine Clean Catch Updated: 08/07/24 0604 Culture Urine 50,000-100,000 CFU/mL Pseudomonas aeruginosa Comment: This is an appended report. These results have been appended to a previously final verified report. 50,000-100,000 CFU/mL Corynebacterium striatum Comment: This is an appended report. These results have been appended to a previously final verified report. 50,000-100,000 CFU/mL Providencia stuartii Susceptibility Pseudomonas aeruginosa (1) Antibiotic Interpretation Microscan Method Status Amikacin Susceptible <=2 ug/mL JELLY Final Cefepime Susceptible <=1 ug/mL JELLY Final Ceftazidime Susceptible <=1 ug/mL JELLY Final Ciprofloxacin Susceptible <=0.25 ug/mL JELLY Final Gentamicin Resistant JELLY Final Meropenem Susceptible 1 ug/mL JELLY Final Piperacillin-tazobactam Susceptible 8 ug/mL JELLY Final Tobramycin Susceptible <=1 ug/mL JELLY Final Providencia stuartii (4) Antibiotic Interpretation Microscan Method Status Amikacin Susceptible <=2 ug/mL JELLY Final Ampicillin-sulbactam Susceptible 4 ug/mL JELLY Final Cefepime Susceptible <=1 ug/mL JELLY Final Ceftriaxone Susceptible <=1 ug/mL JELLY Final Ciprofloxacin Susceptible <=0.25 ug/mL JELLY Final Meropenem Susceptible <=0.25 ug/mL JELLY Final Piperacillin-tazobactam Susceptible <=4 ug/mL JELLY Final Trimethoprim-sulfamethoxazole Susceptible <=20 ug/mL JELLY Final CULTURE URINE [[id number]] (Abnormal) (Susceptibility) Collected: 07/17/24 0958 Lab Status: Final result Specimen: Urine Clean Catch Updated: 07/18/24 8663 Culture Urine >100,000 CFU/mL Providencia stuartii <10,000 CFU/mL urogenital heidi Susceptibility Providencia stuartii (1) Antibiotic Interpretation Microscan Method Status Amikacin Susceptible <=2 ug/mL JELLY Final Ampicillin-sulbactam Susceptible 8 ug/mL JELLY Final Cefepime Susceptible <=1 ug/mL JELLY Final Ceftriaxone Susceptible <=1 ug/mL JELLY Final Ciprofloxacin Susceptible <=0.25 ug/mL JELLY Final Meropenem Susceptible <=0.25 ug/mL JELLY Final Piperacillin-tazobactam Susceptible <=4 ug/mL JELLY Final Trimethoprim-sulfamethoxazole Susceptible <=20 ug/mL JELLY Final Imaging CT Chest Abdomen Pelvis W Cont Result Date: 08/02/2024 Impression: 1.Trace left-sided pleural effusion, bilateral dependent and subsegmental atelectasis, likely from retained secretions. 2.Coronary artery atherosclerotic disease. Findings indicating age indeterminate left ventricular myocardial infarction. 3.Small hiatal hernia and mild diffuse mural thickening of the esophagus suggesting reflux esophagitis. 4.Punctate nonobstructing kidney stone in the upper pole of the left kidney. 5.Enhancing liver lesion better characterized on prior study and likely representing flash filling hemangiomas. 6.1.6 cm enhancing nodule in the right aspect of the prostate gland, correlate with PSA. 7.Diffuse bladder wall thickening could be secondary to bladder outlet obstruction and associated cystitis. > Dictated by Justin Burrell MD (radiology specialist). I, Bebo Kuo MD have personally reviewed and interpreted this examination/study. > Interpreting Provider: Bebo Kuo MD on 08/02/2024 11:19 PM Relevant labs and imaging data reviewed on [facility]. Assessment and Plan Acute cystitis without hematuria (POA: Yes) Epilepsy, unspecified, not intractable, without status epilepticus (HCC) (POA: Yes) Cerebrovascular accident (HCC) (POA: Yes) Dementia, vascular (HCC) (POA: Yes) PEG (percutaneous endoscopic gastrostomy) status (HCC) (POA: Yes) Generalized abdominal pain (POA: Yes) Nausea without vomiting (POA: Yes) PEG tube malfunction (HCC) (POA: Yes) Tracheostomy dependent (HCC) (POA: Yes) Dysphagia due to old cerebrovascular accident (POA: Yes) Acute metabolic encephalopathy (POA: Yes) Moderate protein-calorie malnutrition (HCC) (POA: Yes) Abdominal pain, POA History dysphagia C/B chronic aspiration s/p peg Chronic PEG dependence Reported Coffee-ground emesis, but no melena noted, Concern for UGIB?? - last EGD 07/18/2024: did not show signs of active bleeding, GJ tube found in good position - apixaban discontinued at discharge last admission - Protonix 40 mg b.i.d. - tube feeds resumed, patient is strict NPO -CBC monitoring daily and monitor for any signs of overt GI bleeding - nausea meds prn - hold aspirin for now, as lungs patient remains HDS without evidence of hemorrhage will resume when appropriate Complicated UTI - urine culture with growth of Pseudomonas and Corynebacterium -? Likely contaminants - patient had been started on ceftriaxone on 08/02 through 08/04, transitioned to Zosyn on 08/05/2024, EOT 08/07/24 Dislodged PEG tube -medications that are able to be transitioned to IV have been as this will not be able to very replaced until at least tomorrow -D5 LR at 75 mL started -discussed with IR today, CT abdomen without contrast ordered to assess PEG, appreciate assistance and recommendations Hypertension - metoprolol 5 mg IV Q 8 hours TBI c/b epilepsy (L temporo-occipital lobes) - home regimen: Keppra 2000 mg b.i.d., lacosamide 200 mg b.i.d., clobazam 10 mg b.i.d., - continue home Keppra, lacosamide, clobazam - seizure and aspiration precautions Chronic hypoxic respiratory failure s/p tracheostomy - copious secretions on exam - continue trach care per nursing /RT Hyperlipidemia PAD s/p L AKA - continue home Lipitor 40 mg - fall precautions Moderate protein calorie malnutrition -resumed tube feedings as soon as PEG is replaced -proper nutrition will be very important for recovery from acute illness and prevention of rehospitalization Incidental findings requiring follow up: 1.6 cm enhancing nodule in the right aspect of the prostate gland, PSA WNL. Diet: DIET TUBE FEEDING CONTINUOUS DIET NPO Except: NO EXCEPTIONS DVT Prophylaxis: SCDs only Code Status: Full Code Dispo: Continue inpatient treatment. Anticipate that the patient will return to his long-term care facility when medically stable, likely in the next 1-2 days Electronically Signed By: Reina Rivera MD 08/07/2024 8:47 AM * Fern Ornelas RN - 08/07/2024 4:20 AM CDT Problem: Nutrient: Malnutrition Goal: Enteral/parenteral nutrition prescription [...] desired activity. Outcome: Adequate for Discharge Problem: Skin/Tissue Integrity - Adult Goal: Skin integrity remains intact Description: INTERVENTIONS: Outcome: Adequate for Discharge Goal: Incisions, wounds, or drain sites healing without S/S of infection Description: INFECTIONS: Outcome: Adequate for Discharge Goal: Oral mucous membranes remain intact Description: INTERVENTIONS: Outcome: Adequate for Discharge * Juan Diego Olvera RN - 08/06/2024 2:53 PM CDT Interventional Radiology Nursing - End Procedure Note Procedure start time: 1435 hours Procedure end time: 1451 hours Contrast: 10 mL of Isovue-300 Fluoroscopy time: 4 min * Yary James MD - 08/06/2024 10:26 AM CDT Images from the original note were not included. [facility] Internal Medicine Progress Note Name: Bi Tabor Room/Bed: [facility] : 1960 64 year old PCP: Dany Monsivais MD Admit Date/Time: 08/02/2024 4:31 PM LOS: 0 Subjective Interval update: On evaluation, the patient was resting comfortably. He appears much more clear and interactive thanhe was on admission. He is able to answer yes or no questions. He denies any nausea this morning and he also denies any abdominal pain. No chest pain, no shortness a breath. No other concerning symptoms. Discussed treatment of UTI and PEG tube placement. The patient does not display any nonverbal indications of pain or discomfort. Hospital course: A 64-year-old male with a past medical history of hypertension, tracheostomy, TBI, aphasia, epilepsy who presented due to abdominal pain that began yesterday. Patient reports abdominal pain was initially relieved by Tylenol. However, pain began to worsen and there was 1 episode of coffee-ground emesis so the nursing facility where he stays r sent him to the ED for further evaluation. The patientdenies fever, chills, shortness of breath, nausea, vomiting, diarrhea, chest pain. Patient endorsesabdominal pain, cough, and copious secretions. In the ED, afebrile, VSS, in NAD. Labs notable for Cr 0.57 (around baseline), albumin 1. UA showed 500 leukocyte, nitrite positive, >100 WBC's, 1+ bacteria. Patient was started on Rocephin. CXR basilar atelectasis, no pneumothorax no pleural effusions. Patient admitted to Medicine for management of UTI and concern for coffee-ground emesis. He was initially started on ceftriaxone but preliminary urine culture with growth of Pseudomonas, transitioned to Zosyn on 08/05/2024. Unfortunately, the patient pulled his PEG tube out on 08/05/2024, IR consulted to assist with replacing and medications transitioned to IV as able. Objective Recent Vitals: Temp: [97.6 ??F (36.4 ??C)-98.6 ??F (37 ??C)] 98.2 ??F (36.8 ??C) Pulse: [60-74] 74 Resp: [18] 18 BP: (134-151)/(59-95) 142/74 O2 %: [35 %] 35 % Weight change: No intake or output data in the 24 hours ending 08/06/24 1026 Physical Exam: General: NAD, resting comfortably, not diaphoretic HEENT: ATNC, EOMI, sclera anicteric, MMM, tracheostomy in place Cardiac: RRR, normal S1 and S2, no m/r/g Respiratory: LCTAB, no w/r/c Abdomen: Soft, NTND, bs+, peg tube noted to be at least 8 cm outside of the stomach with balloon retained within the stomach Extremities: No edema, no erythema, left AKA noted Skin: No rash, no ecchymosis Largely unchanged from 08/05/2024 Scheduled Medications: 0.9% NaCl 3 mL Intracatheter q8h [Held by Provider] atorvastatin 40 mg Enteral Tube AT BEDTIME bisacodyl 10 mg Rectal BID [Held by Provider] cloBAZam 10 mg Enteral Tube BID [Held by Provider] folic acid 1 mg Enteral Tube QDAY [Held by Provider] glycopyrrolate 1 mg Enteral Tube BID [Held by Provider] guaiFENesin 15 mL Enteral Tube Every 6 Hours (,,,) lacosamide 200 mg Intravenous BID levETIRAcetam 1,000 mg Intravenous q12h metoprolol 5 mg Intravenous q8h [Held by Provider] metoprolol tartrate IR 25 mg Enteral Tube BID pantoprazole 40 mg Intravenous BID piperacillin-tazobactam 4.5 g Intravenous q8h [Held by Provider] polyethylene glycol 3350 17 g Per G Tube QDAY [Held by Provider] sennosides 8.6 mg Enteral Tube QDAY [Held by Provider] thiamine 100 mg Enteral Tube QDAY valproate 500 mg Intravenous q12h [Held by Provider] valproic acid 500 mg Per G Tube q8h PRN Medications: SALINE LOCK, INSERT AND MAINTAIN AND 0.9% NaCl AND 0.9% NaCl albuterol-ipratropium bisacodyl calcium carbonate (500 mg elemental Ca/5 mL) dextrose IV for hypoglycemia OR dextrose IV for hypoglycemia OR glucagon glucose (Diabetic Use) gel hydrALAZINE morphine ondansetron oxyCODONE Continuous Infusions: dextrose 5 % and lactated ringers, , Last Rate: 75 mL/hr at 08/05/24 1215 Laboratory Data Recent Labs Component Name 08/05/2410108/04/24121108/03/24517 WBC 6.3 6.7 9.0 HGB 12.8* 12.8* 13.6 HCT 38.5* 38.0* 40.1 PLTCOUNT 187 201 240 MCV 94.4 95.2 94.8 Recent Labs Component Name 08/05/24 0102 08/04/242 08/03/24 0518 06/08/24 0411 09/14/23 0618 09/09/23 0655 09/09/23 0430 PT 13.8 13.9 14.2 - - - 17.6* INR 1.1 1.1 1.1 - - - 1.5 PTT - - - - 31.6 >200.0* >200.0* - = values in this interval not displayed. Recent Labs Component Name 08/05/24 0102 08/04/24 1212 08/03/24 0518 NA 140 140 140 POTASSIUM 4.0 4.0 4.4 CL 107 107 107 CO2 BUN 16 14 CREATININE 0.63* 0.61* 0.65* Recent Labs Component Name 08/05/24 0102 08/04/24 1212 08/03/24 0518 CALCIUM 8.9 9.2 9.8 PHOS 3.6 3.8 3.7 Recent Labs Component Name 08/05/24 0102 08/04/24 1212 08/03/24 0518 08/02/24 1708 08/02/24 0203 07/27/24 1826 06/09/23 1314 02/28/23 0541 08/28/22 1251 06/30/22 1039 03/03/18 1745 01/30/18 1255 PROT - - - 7.6 7.2 7.2 - 6.5 - 6.2 - 6.9 ALB 3.3* 3.5 3.7 3.8 3.6 3.4 - 2.5* - 2.2* - 3.7 ALKPHOS - - - 94 92 95 - 79 - 65 - 75 AST - - - 25 15 15 - 13 - 13 - 14 ALT - - - 14 10 13 - 7 - 5 - 10 TBILI - - - 0.4 0.3 0.3 - 0.2 - 0.3 - 0.4 DBILI - - - - - - - 0.1 - 0.2 - 0.2 - = values in this interval not displayed. Recent Labs Component Name 07/16/24 2244 02/19/24 0200 01/02/23 1008 07/01/22 1634 06/28/22 0141 06/27/22 2215 05/30/22 1750 02/25/21 1134 05/15/19 0911 CKTOTAL 92 164 51 - - - - - 63 CKMBCK2 - - - - - - - - 0.8 TROPONINI - - - - <0.010 <0.010 <0.010 - <0.010 - = values in this interval not displayed. Recent Labs Component Name 06/16/23 0251 08/31/22 0923 07/04/22 0145 VANCORNDM - - 22.0 VANCTROUGH 17.7 - - - = values in this interval not displayed. Microbiology Results (Displays last 21 days for this encounter ONLY) Procedure Component Value - Date/Time CULTURE URINE [[id number]] (Abnormal) (Susceptibility) Collected: 08/03/24 0853 Lab Status: Preliminary result Specimen: Urine Clean Catch Updated: 08/06/24 0636 Culture Urine 50,000-100,000 CFU/mL Pseudomonas aeruginosa Comment: This is an appended report. These results have been appended to a previously final verified report. 50,000-100,000 CFU/mL Corynebacterium striatum Comment: This is an appended report. These results have been appended to a previously final verified report. Susceptibility Pseudomonas aeruginosa (1) Antibiotic Interpretation Microscan Method Status Amikacin Susceptible <=2 ug/mL JELLY Final Cefepime Susceptible <=1 ug/mL JELLY Final Ceftazidime Susceptible <=1 ug/mL JELLY Final Ciprofloxacin Susceptible <=0.25 ug/mL JELLY Final Gentamicin Resistant JELLY Final Meropenem Susceptible 1 ug/mL JELLY Final Piperacillin-tazobactam Susceptible 8 ug/mL JELLY Final Tobramycin Susceptible <=1 ug/mL JELLY Final CULTURE URINE [[id number]] (Abnormal) (Susceptibility) Collected: 07/17/24 0958 Lab Status: Final result Specimen: Urine Clean Catch Updated: 07/18/24 2149 Culture Urine >100,000 CFU/mL Providencia stuartii <10,000 CFU/mL urogenital heidi Susceptibility Providencia stuartii (1) Antibiotic Interpretation Microscan Method Status Amikacin Susceptible <=2 ug/mL JELLY Final Ampicillin-sulbactam Susceptible 8 ug/mL JELLY Final Cefepime Susceptible <=1 ug/mL JELLY Final Ceftriaxone Susceptible <=1 ug/mL JELLY Final Ciprofloxacin Susceptible <=0.25 ug/mL JELLY Final Meropenem Susceptible <=0.25 ug/mL JELLY Final Piperacillin-tazobactam Susceptible <=4 ug/mL JELLY Final Trimethoprim-sulfamethoxazole Susceptible <=20 ug/mL JELLY Final HELICOBACTER PYLORI ANTIGEN FECES [[id number]] Lab Status: No result Specimen: Stool from Feces SARS-COV-2 (COVID-19) FLU A/B RSV PCR RAPID [[id number]] (Normal) Collected: 07/17/24 0003 Lab Status: Final result Specimen: Microbiology from Nasopharyngeal Updated: 07/17/24 0051 COVID-19 PCR Not detected Influenza A PCR [...] EUA assay are available upon request. Imaging CT Chest Abdomen Pelvis W Cont Result Date: 08/02/2024 Impression: 1.Trace left-sided pleural effusion, bilateral dependent and subsegmental atelectasis, likely from retained secretions. 2.Coronary artery atherosclerotic disease. Findings indicating age indeterminate left ventricular myocardial infarction. 3.Small hiatal hernia and mild diffuse mural thickening of the esophagus suggesting reflux esophagitis. 4.Punctate nonobstructing kidney stone in the upper pole of the left kidney. 5.Enhancing liver lesion better characterized on prior study and likely representing flash filling hemangiomas. 6.1.6 cm enhancing nodule in the right aspect of the prostate gland, correlate with PSA. 7.Diffuse bladder wall thickening could be secondary to bladder outlet obstruction and associated cystitis. > Dictated by Justin Burrell MD (radiology specialist). I, Bebo Kuo MD have personally reviewed and interpreted this examination/study. > Interpreting Provider: Bebo Kuo MD on 08/02/2024 11:19 PM Relevant labs and imaging data reviewed on [facility]. Assessment and Plan Acute cystitis without hematuria (POA: Yes) Epilepsy, unspecified, not intractable, without status epilepticus (HCC) (POA: Yes) Cerebrovascular accident (HCC) (POA: Yes) Dementia, vascular (HCC) (POA: Yes) PEG (percutaneous endoscopic gastrostomy) status (HCC) (POA: Yes) Generalized abdominal pain (POA: Yes) Nausea without vomiting (POA: Yes) PEG tube malfunction (HCC) (POA: Yes) Tracheostomy dependent (HCC) (POA: Yes) Dysphagia due to old cerebrovascular accident (POA: Yes) Acute metabolic encephalopathy (POA: Yes) Moderate protein-calorie malnutrition (HCC) (POA: Yes) Abdominal pain, POA History dysphagia C/B chronic aspiration s/p peg Chronic PEG dependence Reported Coffee-ground emesis, but no melena noted, Concern for UGIB?? - last EGD 07/18/2024: did not show signs of active bleeding, GJ tube found in good position - apixaban discontinued at discharge last admission - Protonix 40 mg b.i.d. - tube feeds resumed, patient is strict NPO -CBC monitoring daily and monitor for any signs of overt GI bleeding - nausea meds prn - hold aspirin for now, as lungs patient remains HDS without evidence of hemorrhage will resume when appropriate Complicated UTI - urine culture with growth of Pseudomonas and Corynebacterium - patient had been started on ceftriaxone on 08/02 through 08/04, transitioned to Zosyn on 08/05/2024, transition to cipro at d/c, EOT 08/06/24 Dislodged PEG tube -medications that are able to be transitioned to IV have been as this will not be able to very replaced until at least tomorrow -D5 LR at 75 mL started -discussed with IR today, CT abdomen without contrast ordered to assess PEG, appreciate assistance and recommendations Hypertension - metoprolol 5 mg IV Q 8 hours TBI c/b epilepsy (L temporo-occipital lobes) - home regimen: Keppra 2000 mg b.i.d., lacosamide 200 mg b.i.d., clobazam 10 mg b.i.d., - continue home Keppra, lacosamide, clobazam - seizure and aspiration precautions ------Keppra, lacosamide and valproate transitioned to IV Chronic hypoxic respiratory failure s/p tracheostomy - copious secretions on exam - continue trach care per nursing /RT Hyperlipidemia PAD s/p L AKA - continue home Lipitor 40 mg - fall precautions Moderate protein calorie malnutrition -as evidenced by being PEG tube feeding dependent and currently not getting any tube feeds due to dislodged PEG -will resume tube feedings as soon as PEG is replaced, continue D5 LR until then -proper nutrition will be very important for recovery from acute illness and prevention of rehospitalization Incidental findings requiring follow up: 1.6 cm enhancing nodule in the right aspect of the prostate gland, PSA WNL. Diet: DIET TUBE FEEDING CONTINUOUS DIET NPO Except: NO EXCEPTIONS DVT Prophylaxis: SCDs only Code Status: Full Code Dispo: Continue inpatient treatment. Anticipate that the patient will return to his long-term care facility when medically stable, likely in the next 1-2 days pending PEG replacement and arrangements Electronically Signed By: Yary James MD 08/06/2024 10:26 AM * Natalie Hernandez RN - 08/06/2024 10:20 AM CDT Care Coordination Initial Assessment Expected Discharge Date: 08/10/2024 Expected Discharge Disposition[facility] Transportation at Discharge: Ambulance Prior Level of Care: Long Term - Skilled Facility Prior to Admit Provider: PRIMARY CARE PHYSICIAN Dany Monsivais MD [address] [place] [id number] OFC: [phone] FAX: [phone] Comments: 64-year-old male with a past medical history of hypertension, tracheostomy, TBI, aphasia,epilepsy who presented due to abdominal pain that began yesterday. Patient reports abdominal pain was initially relieved by Tylenol. CM completed the initial assessment and SDOH at the bedside, and the patient has confirmed that theaddress, contacts, and PCP are correct on the face sheet. Lives with: Other (Comment) (LTC) Physical Limitations: Ambulation with use of DME Requires Assistance With: Mobility;Dressing;Feeding;Toileting;Hygiene;Transfers;Housekeeping;Meal Pr eparation;Medication Administration;Shopping Preferred Pharmacy: [facility] [address] [facility] [id number] [address] [facility] [address] [facility] [address] READMISSION RISK SCORE is 22 at 12:21 PM 08/06/2024. Met with patient Family Support (name and phone): Extended Emergency Contact Information Primary Emergency Contact: Adriane Hilliard Mobile Relation: Sister Ups Driver needed? 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 No Actual Level of Care/Dispostion Details Durable Medical Equipment Planning Equipment at Home: Wheelchair;Home 02 List DME pt. requires but does not have.: None Dobie Man Referral: No Will continue to follow. For any questions or needs please contact: Hydraulic Modeling Engineer/Social Work Name/Phone number: Natalie Hernandez RN * Fern Ornelas RN - 08/06/2024 4:19 AM CDT Problem: Nutrient: Malnutrition Goal: Enteral/parenteral nutrition prescription will be consistent with estimated needs Outcome: Not Progressing Problem: Pain/Discomfort Goal: Patient exhibits reduced pain/discomfort as evidenced by pain scores Outcome: Progressing Goal: Patient uses pharmacological and non-pharmacological pain management strategies. Outcome: Progressing Goal: Patient verbalizes acceptable level of pain relief and ability to engage in desired activity. Outcome: Progressing Problem: Skin/Tissue Integrity - Adult Goal: Skin integrity remains intact Description: INTERVENTIONS: Outcome: Adequate for Discharge Goal: Incisions, wounds, or drain sites healing without S/S of infection Description: INFECTIONS: Outcome: Adequate for Discharge Goal: Oral mucous membranes remain intact Description: INTERVENTIONS: Outcome: Adequate for Discharge * Yary James MD - 08/05/2024 12:17 PM CDT Images from the original note were not included. [facility] Internal Medicine Progress Note Name: Bi [facility]abor Room/Bed: 7733/1 : 1960 64 year old PCP: Dany Monsivais MD Admit Date/Time: 08/02/2024 4:31 PM LOS: 0 Subjective Interval update: Overnight, the patient's PEG tube was pulled out, suspect he may have been encephalopathic as result of UTI. On evaluation it is only hanging on by the balloon within the stomach. He reports that hisright foot hurts. He denies any nausea/vomiting this morning. No chest pain or shortness for breath. Hospital course: A 64-year-old male with a past medical history of hypertension, tracheostomy, TBI, aphasia, epilepsy who presented due to abdominal pain that began yesterday. Patient reports abdominal pain was initially relieved by Tylenol. However, pain began to worsen and there was 1 episode of coffee-ground emesis so the nursing facility where he stays r sent him to the ED for further evaluation. The patient denies fever, chills, shortness of breath, nausea, vomiting, diarrhea, chest pain. Patient endorses abdominal pain, cough, and copious secretions. In the ED, afebrile, VSS, in NAD. Labs notable for Cr0.57 (around baseline), albumin 1. UA showed 500 leukocyte, nitrite positive, >100 WBC's, 1+ bacteria. Patient was started on Rocephin. CXR basilar atelectasis, no pneumothorax no pleural effusions. Patient admitted to Medicine for management of UTI and concern for coffee-ground emesis. Objective Recent Vitals: Temp: [97.7 ??F (36.5 ??C)-98.6 ??F (37 ??C)] 97.7 ??F (36.5 ??C) Pulse: [76-80] 78 Resp: [18] 18 BP: (124-169)/(86-106) 124/86 O2 %: [28 %-35 %] 35 % Weight change: Intake/Output Summary (Last 24 hours) at 08/05/2024 1219 Last data filed at 08/05/2024 0639 Gross per 24 hour Intake -- Output 400 ml Net -400 ml Physical Exam: General: NAD, resting comfortably, not diaphoretic HEENT: ATNC, EOMI, sclera anicteric, MMM, tracheostomy in place Cardiac: RRR, normal S1 and S2, no m/r/g Respiratory: LCTAB, no w/r/c Abdomen: Soft, NTND, bs+, peg tube noted to be at least 8 cm outside of the stomach with balloon retained within the stomach Extremities: No edema, no erythema Skin: No rash, no ecchymosis Scheduled Medications: 0.9% NaCl 3 mL Intracatheter q8h [Held by Provider] atorvastatin 40 mg Enteral Tube AT BEDTIME bisacodyl 10 mg Rectal BID [Held by Provider] cloBAZam 10 mg Enteral Tube BID [Held by Provider] folic acid 1 mg Enteral Tube QDAY [Held by Provider] glycopyrrolate 1 mg Enteral Tube BID [Held by Provider] guaiFENesin 15 mL Enteral Tube Every 6 Hours (,,,) lacosamide 200 mg Intravenous BID levETIRAcetam 1,000 mg Intravenous q12h metoprolol 5 mg Intravenous q8h [Held by Provider] metoprolol tartrate IR 25 mg Enteral Tube BID pantoprazole 40 mg Intravenous BID piperacillin-tazobactam 4.5 g Intravenous q8h [Held by Provider] polyethylene glycol 3350 17 g Per G Tube QDAY [Held by Provider] sennosides 8.6 mg Enteral Tube QDAY [Held by Provider] thiamine 100 mg Enteral Tube QDAY valproate 500 mg Intravenous q12h [Held by Provider] valproic acid 500 mg Per G Tube q8h PRN Medications: SALINE LOCK, INSERT AND MAINTAIN AND 0.9% NaCl AND 0.9% NaCl albuterol-ipratropium bisacodyl calcium carbonate (500 mg elemental Ca/5 mL) dextrose IV for hypoglycemia OR dextrose IV for hypoglycemia OR glucagon glucose (Diabetic Use) gel hydrALAZINE morphine ondansetron oxyCODONE Continuous Infusions: dextrose 5 % and lactated ringers, , Last Rate: 75 mL/hr at 08/05/24 1215 Laboratory Data Recent Labs Component Name 08/05/24 0102 08/04/24 1212 08/03/24 0518 WBC 6.3 6.7 9.0 HGB 12.8* 12.8* 13.6 HCT 38.5* 38.0* 40.1 PLTCOUNT 187 201 240 MCV 94.4 95.2 94.8 Recent Labs Component Name 08/05/24 0102 08/04/24 1212 08/03/24 0518 06/08/24 0411 09/14/23 0618 09/09/23 0655 09/09/23 0430 PT 13.8 13.9 14.2 - - - 17.6* INR 1.1 1.1 1.1 - - - 1.5 PTT - - - - 31.6 >200.0* >200.0* - = values in this interval not displayed. Recent Labs Component Name 08/05/24 0102 08/04/24 1212 08/03/24 0518 NA 140 140 140 POTASSIUM 4.0 4.0 4.4 CL 107 107 107 CO2 BUN 16 16 14 CREATININE 0.63* 0.61* 0.65* Recent Labs Component Name 08/05/24 0102 08/04/24 1212 08/03/24 0518 CALCIUM 8.9 9.2 9.8 PHOS 3.6 3.8 3.7 Recent Labs Component Name 08/05/24 0102 08/04/24 1212 08/03/24 0518 08/02/24 1708 08/02/24 0203 07/27/24 1826 06/09/23 1314 02/28/23 0541 08/28/22 1251 06/30/22 1039 03/03/18 1745 01/30/18 1255 PROT - - - 7.6 7.2 7.2 - 6.5 - 6.2 - 6.9 ALB 3.3* 3.5 3.7 3.8 3.6 3.4 - 2.5* - 2.2* - 3.7 ALKPHOS - - - 94 92 95 - 79 - 65 - 75 AST - - - 25 15 15 - 13 - 13 - 14 ALT - - - 14 10 13 - 7 - 5 - 10 TBILI - - - 0.4 0.3 0.3 - 0.2 - 0.3 - 0.4 DBILI - - - - - - - 0.1 - 0.2 - 0.2 - = values in this interval not displayed. Recent Labs Component Name 07/16/24 2244 02/19/24 0200 01/02/23 1008 07/01/22 1634 06/28/22 0141 06/27/22 2215 05/30/22 1750 02/25/21 1134 05/15/19 0911 CKTOTAL 92 164 51 - - - - - 63 CKMBCK2 - - - - - - - - 0.8 TROPONINI - - - - <0.010 <0.010 <0.010 - <0.010 - = values in this interval not displayed. Recent Labs Component Name 06/16/23 0251 08/31/22 0923 07/04/22 0145 VANCORNDM - - 22.0 VANCTROUGH 17.7 - - - = values in this interval not displayed. Microbiology Results (Displays last 21 days for this encounter ONLY) Procedure Component Value - Date/Time CULTURE URINE [[id number]] (Normal) Collected: 08/03/24 0853 Lab Status: Edited Specimen: Urine Clean Catch Updated: 08/04/24 1120 Culture Urine More than 2 organisms seen at >=50,000 CFU/mL. Recollect if clinically indicated. CULTURE URINE [[id number]] (Abnormal) (Susceptibility) Collected: 07/17/24 0958 Lab Status: Final result Specimen: Urine Clean Catch Updated: 07/18/24 2149 Culture Urine >100,000 CFU/mL Providencia stuartii <10,000 CFU/mL urogenital heidi Susceptibility Providencia stuartii (1) Antibiotic Interpretation Microscan Method Status Amikacin Susceptible <=2 ug/mL JELLY Final Ampicillin-sulbactam Susceptible 8 ug/mL JELLY Final Cefepime Susceptible <=1 ug/mL JELLY Final Ceftriaxone Susceptible <=1 ug/mL JELLY Final Ciprofloxacin Susceptible <=0.25 ug/mL JELLY Final Meropenem Susceptible <=0.25 ug/mL JELLY Final Piperacillin-tazobactam Susceptible <=4 ug/mL JELLY Final Trimethoprim-sulfamethoxazole Susceptible <=20 ug/mL JELLY Final HELICOBACTER PYLORI ANTIGEN FECES [[id number]] Lab Status: No result Specimen: Stool from Feces SARS-COV-2 (COVID-19) FLU A/B RSV PCR RAPID [[id number]] (Normal) Collected: 07/17/24 0003 Lab Status: Final result Specimen: Microbiology from Nasopharyngeal Updated: 07/17/24 0051 COVID-19 PCR Not detected Influenza A PCR [...] EUA assay are available upon request. Imaging CT Chest Abdomen Pelvis W Cont Result Date: 08/02/2024 Impression: 1.Trace left-sided pleural effusion, bilateral dependent and subsegmental atelectasis, likely from retained secretions. 2.Coronary artery atherosclerotic disease. Findings indicating age indeterminate left ventricular myocardial infarction. 3.Small hiatal hernia and mild diffuse mural thickening of the esophagus suggesting reflux esophagitis. 4.Punctate nonobstructing kidney stone in the upper pole of the left kidney. 5.Enhancing liver lesion better characterized on prior study and likely representing flash filling hemangiomas. 6.1.6 cm enhancing nodule in the right aspect of the prostate gland, correlate with PSA. 7.Diffuse bladder wall thickening could be secondary to bladder outlet obstruction and associated cystitis. > Dictated by Justin Burrell MD (radiology specialist). I, Bebo Kuo MD have personally reviewed and interpreted this examination/study. > Interpreting Provider: Bebo Kuo MD on 08/02/2024 11:19 PM Relevant labs and imaging data reviewed on [facility]. Assessment and Plan Acute cystitis without hematuria (POA: Yes) Epilepsy, unspecified, not intractable, without status epilepticus (HCC) (POA: Yes) Cerebrovascular accident (HCC) (POA: Yes) Dementia, vascular (HCC) (POA: Yes) PEG (percutaneous endoscopic gastrostomy) status (HCC) (POA: Yes) Generalized abdominal pain (POA: Yes) Nausea without vomiting (POA: Yes) PEG tube malfunction (HCC) (POA: Yes) Tracheostomy dependent (HCC) (POA: Yes) Dysphagia due to old cerebrovascular accident (POA: Yes) Abdominal pain, POA History dysphagia C/B chronic aspiration s/p peg Chronic PEG dependence Reported Coffee-ground emesis, but no melena noted, Concern for UGIB?? - last EGD 07/18/2024: did not show signs of active bleeding, GJ tube found in good position - apixaban discontinued at discharge last admission - Protonix 40 mg b.i.d. - tube feeds resumed, patient is strict NPO -CBC monitoring daily and monitor for any signs of overt GI bleeding - nausea meds prn - hold aspirin for now, as lungs patient remains HDS without evidence of hemorrhage will resume when appropriate UTI - UA showed 500 leukocyte, nitrite positive, >100 WBC's, 1+ bacteria. - urine culture pending, the patient does have a history of multiple bacteria causing UTIs - patient had been started on ceftriaxone on 08/02 through 08/04 -----urine culture with multiple bacteria. I personally discussed with the microbiology lab today and they will separate out the specific organism. -----preliminary assessment with PseudomonasVirysyn started 08/05/2024 -----follow-up final culture data and adjust antibiotics as needed Dislodged PEG tube -medications that are able to be transitioned to IV have been as this will not be able to very replaced until at least tomorrow -D5 LR at 75 mL started -discussed with GI, they recommend IR consult as the patient had previously had the PEG tube placedby them -will discuss with IR tomorrow -------the patient would benefit from an abdominal binder after PEG placement that he does not pullthe PEG tube out again Hypertension - metoprolol 5 mg IV Q 8 hours TBI c/b epilepsy (L temporo-occipital lobes) - home regimen: Keppra 2000 mg b.i.d., lacosamide 200 mg b.i.d., clobazam 10 mg b.i.d., - continue home Keppra, lacosamide, clobazam - seizure and aspiration precautions ------Keppra, lacosamide and valproate transitioned to IV Chronic hypoxic respiratory failure s/p tracheostomy - copious secretions on exam - continue trach care per nursing /RT Hyperlipidemia PAD s/p L AKA - continue home Lipitor 40 mg - fall precautions Incidental findings requiring follow up: 1.6 cm enhancing nodule in the right aspect of the prostate gland,ordered PSA, if elevated for age,consider urology consult, otherwise opt urology follow up Diffuse bladder wall thickening could be secondary to bladder outlet obstruction and associated cystitis. Diet: DIET TUBE FEEDING CONTINUOUS DIET NPO Except: NO EXCEPTIONS DVT Prophylaxis: SCDs only Code Status: Full Code Dispo: Continue inpatient treatment. Anticipate that the patient will return to his long-term care facility when medically stable, likely in the next 3-4 days. Electronically Signed By: Yary James MD 08/05/2024 12:19 PM * Fern Ornelas RN - 08/05/2024 5:38 AM CDT PCP was updated regarding the pt condition and this RN was ordered to continue holding TF. STAT KUBwas ordered by the PCP. * Yary James MD - 08/04/2024 11:41 AM CST Images from the original note were not included. [facility] Internal Medicine Progress Note Name: Bi [facility] Room/Bed: 77331 : 1960 64 year old PCP: Dany Monsivais MD Admit Date/Time: 08/02/2024 4:31 PM LOS: 0 Subjective Interval update: On evaluation, the patient was resting comfortably. He intermittently answered questions but did not display any nonverbal indications of pain or discomfort. He was able to tell me that he was experiencing nausea in the moment and he nodded his head yes when I asked if he had abdominal pain. Suspect some underlying encephalopathy as a result of acute infection. Hospital course: A 64-year-old male with a past medical history of hypertension, tracheostomy, TBI, aphasia, epilepsy who presented due to abdominal pain that began yesterday. Patient reports abdominal pain was initially relieved by Tylenol. However, pain began to worsen and there was 1 episode of coffee-ground emesis so the nursing facility where he stays r sent him to the ED for further evaluation. The patient denies fever, chills, shortness of breath, nausea, vomiting, diarrhea, chest pain. Patient endorses abdominal pain, cough, and copious secretions. In the ED, afebrile, VSS, in NAD. Labs notable for Cr0.57 (around baseline), albumin 1. UA showed 500 leukocyte, nitrite positive, >100 WBC's, 1+ bacteria. Patient was started on Rocephin. CXR basilar atelectasis, no pneumothorax no pleural effusions. Patient admitted to Medicine for management of UTI and concern for coffee-ground emesis. Objective Recent Vitals: Temp: [98 ??F (36.7 ??C)-98.4 ??F (36.9 ??C)] 98 ??F (36.7 ??C) Pulse: [61-81] 81 Resp: [11-17] 17 BP: (133-161)/(70-92) 142/70 Weight change: No intake or output data in the 24 hours ending 08/04/24 1142 Physical Exam: General: NAD, resting comfortably, not diaphoretic HEENT: ATNC, EOMI, sclera anicteric, MMM, tracheostomy in place Cardiac: RRR, normal S1 and S2, no m/r/g Respiratory: LCTAB, no w/r/c Abdomen: Soft, NTND, bs+, peg tube in place Extremities: No edema, no erythema Skin: No rash, no ecchymosis Scheduled Medications: 0.9% NaCl 3 mL Intracatheter q8h atorvastatin 40 mg Enteral Tube AT BEDTIME cefTRIAXone 2 g Intravenous q24h cloBAZam 10 mg Enteral Tube BID folic acid 1 mg Enteral Tube QDAY glycopyrrolate 1 mg Enteral Tube BID guaiFENesin 15 mL Enteral Tube Every 6 Hours (03,09,15,) iopamidol Intravenous Contrast - Once lacosamide 200 mg Per G Tube BID levETIRAcetam 1,750 mg Enteral Tube BID metoprolol tartrate IR 25 mg Enteral Tube BID pantoprazole 40 mg Intravenous BID polyethylene glycol 3350 17 g Per G Tube QDAY sennosides 8.6 mg Enteral Tube QDAY thiamine 100 mg Enteral Tube QDAY valproic acid 500 mg Per G Tube q8h PRN Medications: SALINE LOCK, INSERT AND MAINTAIN AND 0.9% NaCl AND 0.9% NaCl albuterol-ipratropium bisacodyl calcium carbonate (500 mg elemental Ca/5 mL) dextrose IV for hypoglycemia OR dextrose IV for hypoglycemia OR glucagon glucose (Diabetic Use) gel ondansetron oxyCODONE Continuous Infusions: Laboratory Data Recent Labs Component Name 08/03/2451708/02/24170708/02/24 020 WBC 9.0 8.4 6.3 HGB 13.6 13.6 13.2* HCT 40.1 41.1 40.1 PLTCOUNT 240 250 231 MCV 94.8 96.3 96.6 Recent Labs Component Name 08/03/2451708/02/24170707/18/24 0807 06/08/24 0411 09/14/23 0618 09/09/23 0655 09/09/23 0430 PT 14.2 12.9 14.4 - - - 17.6* INR 1.1 1.0 1.1 - - - 1.5 PTT - - - - 31.6 >200.0* >200.0* - = values in this interval not displayed. Recent Labs Component Name 08/03/2451708/02/24170708/02/24 020 NA 140 140 139 POTASSIUM 4.4 4.5 4.2 CL 107 105 105 CO2 BUN 14 14 12 CREATININE 0.65* 0.57* 0.57* Recent Labs Component Name 08/03/2451708/02/24170708/02/24 0203 07/27/24 1826 07/18/24 0807 07/16/24 2244 06/08/24 0411 CALCIUM 9.8 9.6 9.6 - 9.4 - 9.3 PHOS 3.7 - - - 4.2 - 3.0 - = values in this interval not displayed. Recent Labs Component Name 08/03/24 0518 08/02/24 1708 08/02/24 0203 07/27/24 1826 06/09/23 1314 02/28/23 0541 08/28/22 1251 06/30/22 1039 03/03/18 1745 01/30/18 1255 PROT - 7.6 7.2 7.2 - 6.5 - 6.2 - 6.9 ALB 3.7 3.8 3.6 3.4 - 2.5* - 2.2* - 3.7 ALKPHOS - 94 92 95 - 79 - 65 - 75 AST - 25 15 15 - 13 - 13 - 14 ALT - 14 10 13 - 7 - 5 - 10 TBILI - 0.4 0.3 0.3 - 0.2 - 0.3 - 0.4 DBILI - - - - - 0.1 - 0.2 - 0.2 - = values in this interval not displayed. Recent Labs Component Name 07/16/24 2244 02/19/24 0200 01/02/23 1008 07/01/22 1634 06/28/22 0141 06/27/22 2215 05/30/22 1750 02/25/21 1134 05/15/19 0911 CKTOTAL 92 164 51 - - - - - 63 CKMBCK2 - - - - - - - - 0.8 TROPONINI - - - - <0.010 <0.010 <0.010 - <0.010 - = values in this interval not displayed. Recent Labs Component Name 06/16/23 0251 08/31/22 0923 07/04/22 0145 VANCORNDM - - 22.0 VANCTROUGH 17.7 - - - = values in this interval not displayed. Microbiology Results (Displays last 21 days for this encounter ONLY) Procedure Component Value - Date/Time CULTURE URINE [[id number]] (Normal) Collected: 08/03/24 0853 Lab Status: Final result Specimen: Urine Clean Catch Updated: 08/04/24 1120 Culture Urine More than 2 organisms seen at >=50,000 CFU/mL. Recollect if clinically indicated. CULTURE URINE [[id number]] (Abnormal) (Susceptibility) Collected: 07/17/24 0958 Lab Status: Final result Specimen: Urine Clean Catch Updated: 07/18/24 2149 Culture Urine >100,000 CFU/mL Providencia stuartii <10,000 CFU/mL urogenital heidi Susceptibility Providencia stuartii (1) Antibiotic Interpretation Microscan Method Status Amikacin Susceptible <=2 ug/mL JELLY Final Ampicillin-sulbactam Susceptible 8 ug/mL JELLY Final Cefepime Susceptible <=1 ug/mL JELLY Final Ceftriaxone Susceptible <=1 ug/mL JELLY Final Ciprofloxacin Susceptible <=0.25 ug/mL JELLY Final Meropenem Susceptible <=0.25 ug/mL JELLY Final Piperacillin-tazobactam Susceptible <=4 ug/mL JELLY Final Trimethoprim-sulfamethoxazole Susceptible <=20 ug/mL JELLY Final HELICOBACTER PYLORI ANTIGEN FECES [[id number]] Lab Status: No result Specimen: Stool from Feces SARS-COV-2 (COVID-19) FLU A/B RSV PCR RAPID [[id number]] (Normal) Collected: 07/17/24 0003 Lab Status: Final result Specimen: Microbiology from Nasopharyngeal Updated: 07/17/24 0051 COVID-19 PCR Not detected Influenza A PCR [...] EUA assay are available upon request. Imaging CT Chest Abdomen Pelvis W Cont Result Date: 08/02/2024 Impression: 1.Trace left-sided pleural effusion, bilateral dependent and subsegmental atelectasis, likely from retained secretions. 2.Coronary artery atherosclerotic disease. Findings indicating age indeterminate left ventricular myocardial infarction. 3.Small hiatal hernia and mild diffuse mural thickening of the esophagus suggesting reflux esophagitis. 4.Punctate nonobstructing kidney stone in the upper pole of the left kidney. 5.Enhancing liver lesion better characterized on prior study and likely representing flash filling hemangiomas. 6.1.6 cm enhancing nodule in the right aspect of the prostate gland, correlate with PSA. 7.Diffuse bladder wall thickening could be secondary to bladder outlet obstruction and associated cystitis. > Dictated by Justin Burrell MD (radiology specialist). I, Bebo Kuo MD have personally reviewed and interpreted this examination/study. > Interpreting Provider: Bebo Kuo MD on 08/02/2024 11:19 PM Relevant labs and imaging data reviewed on [facility]. Assessment and Plan Generalized abdominal pain (POA: Unknown) Acute cystitis without hematuria (POA: Unknown) Nausea without vomiting (POA: Unknown) Abdominal pain, POA History dysphagia C/B chronic aspiration s/p peg Chronic PEG dependence Reported Coffee-ground emesis, but no melena noted, Concern for UGIB?? - last EGD 07/18/2024: did not show signs of active bleeding, GJ tube found in good position - apixaban discontinued at discharge last admission - Protonix 40 mg b.i.d. - tube feeds resumed, patient is strict NPO -CBC monitoring daily and monitor for any signs of overt GI bleeding - nausea meds prn - hold aspirin for now, as lungs patient remains HDS without evidence of hemorrhage will resume when appropriate UTI - UA showed 500 leukocyte, nitrite positive, >100 WBC's, 1+ bacteria. - urine culture pending, the patient does have a history of multiple bacteria causing UTIs - continue ceftriaxone, tailor antibiotics as appropriate based on culture Hypertension - continue home metoprolol tartrate 25 mg b.i.d. TBI c/b epilepsy (L temporo-occipital lobes) - home regimen: Keppra 2000 mg b.i.d., lacosamide 200 mg b.i.d., clobazam 10 mg b.i.d., - continue home Keppra, lacosamide, clobazam - seizure and aspiration precautions Chronic hypoxic respiratory failure s/p tracheostomy - copious secretions on exam - continue trach care per nursing /RT Hyperlipidemia PAD s/p L AKA - continue home Lipitor 40 mg - fall precautions Incidental findings requiring follow up: 1.6 cm enhancing nodule in the right aspect of the prostate gland,ordered PSA, if elevated for age,consider urology consult, otherwise opt urology follow up Diffuse bladder wall thickening could be secondary to bladder outlet obstruction and associated cystitis. Diet: DIET TUBE FEEDING CONTINUOUS DIET NPO Except: NO EXCEPTIONS DVT Prophylaxis: SCDs only Code Status: Full Code Dispo: Continue inpatient treatment. Anticipate that the patient will return to his long-term care facility when medically stable, likely in the next 3-4 days. Electronically Signed By: Yary James MD 08/04/2024 11:42 AM AL CARE ATTENDANT * Marianne Daniels MD - 08/03/2024 7:44 AM CST Images from the original note were not included. [facility] Internal Medicine Progress Note Name: Bi Tabor Room/Bed: [place] [address] : 1960 64 year old PCP: Dany Monsivais MD Admit Date/Time: 08/02/2024 4:31 PM LOS: 0 Subjective Chief Complaint: 1 episode of coffee ground emesis, abdominal pain Interval update: Patient is seen and assessed at bedside, found obtunded, he opened his eyes momentarily on sternal rub then fall back asleep. Facial grimacing noted on sternal rub. Per nursing, patient is able to communicate only through simple commands of yes or no, and not able to engage in a meaningful conversation at baseline. Found in no acute distress, bedside vitals stable. Patient noted to be soiled in liquidy brown colored stools. No melena noted. At baseline patient is trach and PEG tube dependent. No significant interval events overnight Hospital course: A 64-year-old male with a past medical history of hypertension, tracheostomy, TBI, aphasia, epilepsy who presented due to abdominal pain that began yesterday. Patient reports abdominal pain was initially relieved by Tylenol. However, pain began to worsen and there was 1 episode of coffee-ground emesis so the nursing facility where he stays r sent him to the ED for further evaluation. The patient denies fever, chills, shortness of breath, nausea, vomiting, diarrhea, chest pain. Patient endorses abdominal pain, cough, and copious secretions. In the ED, afebrile, VSS, in NAD. Labs notable for Cr0.57 (around baseline), albumin 1. UA showed 500 leukocyte, nitrite positive, >100 WBC's, 1+ bacteria. Patient was started on Rocephin. CXR basilar atelectasis, no pneumothorax no pleural effusions. Patient admitted to Medicine for management of UTI and concern for coffee-ground emesis. Objective Recent Vitals: Temp: [98.4 ??F (36.9 ??C)] 98.4 ??F (36.9 ??C) Pulse: [78-104] 86 Resp: [10-26] 16 BP: (140-172)/(85-99) 153/91 Weight change: No intake or output data in the 24 hours ending 08/03/24 0744 Physical Exam: Gen: in no acute distress HEENT: NC/AT, EOMI, no nasal drainage, oropharynx clear, trach in place Neck: Supple with full ROM CV: Regular S1 & S2, without murmur, rub or gallop. Lungs: Clear to auscultation bilaterally, no crackles, no wheezes Abdomen: BS+, soft, non-tender, non-distended. Peg in place Extremities: Nontender with normal ROM, No edema noted Skin: Warm, dry, no rashes or wounds noted Scheduled Medications: 0.9% NaCl 3 mL Intracatheter q8h atorvastatin 40 mg Enteral Tube AT BEDTIME cefTRIAXone 2 g Intravenous q24h cloBAZam 10 mg Enteral Tube BID folic acid 1 mg Enteral Tube QDAY glycopyrrolate 1 mg Enteral Tube BID guaiFENesin 15 mL Enteral Tube Every 6 Hours (03,09,15,) iopamidol Intravenous Contrast - Once lacosamide 200 mg Per G Tube BID levETIRAcetam 1,750 mg Enteral Tube BID metoprolol tartrate IR 25 mg Enteral Tube BID pantoprazole 40 mg Intravenous BID polyethylene glycol 3350 17 g Per G Tube QDAY sennosides 8.6 mg Enteral Tube QDAY thiamine 100 mg Enteral Tube QDAY valproic acid 500 mg Per G Tube q8h PRN Medications: SALINE LOCK, INSERT AND MAINTAIN AND 0.9% NaCl AND 0.9% NaCl albuterol-ipratropium bisacodyl calcium carbonate (500 mg elemental Ca/5 mL) dextrose IV for hypoglycemia OR dextrose IV for hypoglycemia OR glucagon glucose (Diabetic Use) gel magnesium hydroxide Continuous Infusions: Laboratory Data Recent Labs Component Name 08/03/2451708/02/24170708/02/24 020 WBC 9.0 8.4 6.3 HGB 13.6 13.6 13.2* HCT 40.1 41.1 40.1 PLTCOUNT 240 250 231 MCV 94.8 96.3 96.6 Recent Labs Component Name 08/03/2451708/02/24170707/18/24 0807 06/08/24 0411 09/14/23 0618 09/09/23 0655 09/09/23 0430 PT 14.2 12.9 14.4 - - - 17.6* INR 1.1 1.0 1.1 - - - 1.5 PTT - - - - 31.6 >200.0* >200.0* - = values in this interval not displayed. Recent Labs Component Name 08/03/2451708/02/24170708/02/24 020 NA 140 140 139 POTASSIUM 4.4 4.5 4.2 CL 107 105 105 CO2 BUN 14 14 12 CREATININE 0.65* 0.57* 0.57* Recent Labs Component Name 08/03/2451708/02/24170708/02/243 07/27/24 18207/18/24 0807 07/16/24 2244 06/08/24 0411 CALCIUM 9.8 9.6 9.6 - 9.4 - 9.3 PHOS 3.7 - - - 4.2 - 3.0 - = values in this interval not displayed. Recent Labs Component Name 08/03/2451708/02/24170708/02/24 0203 07/27/24 1826 06/09/23 1314 02/28/23 0541 08/28/22 1251 06/30/22 1039 03/03/18 1745 01/30/18 1255 PROT - 7.6 7.2 7.2 - 6.5 - 6.2 - 6.9 ALB 3.7 3.8 3.6 3.4 - 2.5* - 2.2* - 3.7 ALKPHOS - 94 92 95 - 79 - 65 - 75 AST - 25 15 15 - 13 - 13 - 14 ALT - 14 10 13 - 7 - 5 - 10 TBILI - 0.4 0.3 0.3 - 0.2 - 0.3 - 0.4 DBILI - - - - - 0.1 - 0.2 - 0.2 - = values in this interval not displayed. Recent Labs Component Name 07/16/24 2244 02/19/24 0200 01/02/23 1008 07/01/22 1634 06/28/22 0141 06/27/22 2215 05/30/22 1750 02/25/21 1134 05/15/19 0911 CKTOTAL 92 164 51 - - - - - 63 CKMBCK2 - - - - - - - - 0.8 TROPONINI - - - - <0.010 <0.010 <0.010 - <0.010 - = values in this interval not displayed. Recent Labs Component Name 06/16/23 0251 08/31/22 0923 07/04/22 0145 VANCORNDM - - 22.0 VANCTROUGH 17.7 - - - = values in this interval not displayed. Microbiology Results (Displays last 21 days for this encounter ONLY) Procedure Component Value - Date/Time CULTURE URINE [[id number]] (Abnormal) (Susceptibility) Collected: 07/17/24 0958 Lab Status: Final result Specimen: Urine Clean Catch Updated: 07/18/24 2143 Culture Urine >100,000 CFU/mL Providencia stuartii <10,000 CFU/mL urogenital heidi Susceptibility Providencia stuartii (1) Antibiotic Interpretation Microscan Method Status Amikacin Susceptible <=2 ug/mL JELLY Final Ampicillin-sulbactam Susceptible 8 ug/mL JELLY Final Cefepime Susceptible <=1 ug/mL JELLY Final Ceftriaxone Susceptible <=1 ug/mL JELLY Final Ciprofloxacin Susceptible <=0.25 ug/mL JELLY Final Meropenem Susceptible <=0.25 ug/mL JELLY Final Piperacillin-tazobactam Susceptible <=4 ug/mL JELLY Final Trimethoprim-sulfamethoxazole Susceptible <=20 ug/mL JELLY Final HELICOBACTER PYLORI ANTIGEN FECES [[id number]] Lab Status: No result Specimen: Stool from Feces SARS-COV-2 (COVID-19) FLU A/B RSV PCR RAPID [[id number]] (Normal) Collected: 07/17/24 0003 Lab Status: Final result Specimen: Microbiology from Nasopharyngeal Updated: 07/17/24 0051 COVID-19 PCR Not detected Influenza A PCR [...] EUA assay are available upon request. Imaging CT Chest Abdomen Pelvis W Cont Result Date: 08/02/2024 Impression: 1.Trace left-sided pleural effusion, bilateral dependent and subsegmental atelectasis, likely from retained secretions. 2.Coronary artery atherosclerotic disease. Findings indicating age indeterminate left ventricular myocardial infarction. 3.Small hiatal hernia and mild diffuse mural thickening of the esophagus suggesting reflux esophagitis. 4.Punctate nonobstructing kidney stone in the upper pole of the left kidney. 5.Enhancing liver lesion better characterized on prior study and likely representing flash filling hemangiomas. 6.1.6 cm enhancing nodule in the right aspect of the prostate gland, correlate with PSA. 7.Diffuse bladder wall thickening could be secondary to bladder outlet obstruction and associated cystitis. > Dictated by Justin Burrell MD (radiology specialist). I, Bebo Kuo MD have personally reviewed and interpreted this examination/study. > Interpreting Provider: Bebo Kuo MD on 08/02/2024 11:19 PM Relevant labs and imaging data reviewed on [facility]. Assessment and Plan Generalized abdominal pain (POA: Unknown) Acute cystitis without hematuria (POA: Unknown) Nausea without vomiting (POA: Unknown) Abdominal pain, POA History dysphagia C/B chronic aspiration s/p peg Chronic PEG dependence Reported Coffee-ground emesis, but no melena noted, Concern for UGIB?? - last EGD 07/18/2024: did not show signs of active bleeding, GJ tube found in good position - apixaban discontinued at discharge last admission Plan - Protonix 40 mg b.i.d. - consult to nutrition for tube feeding, input appreciated. Resume tube feeds - Watch for melena/overt GI bleeding -CBC monitoring daily - nausea meds prn -abdominal pain is likely 2/2 UTI, continue CTX Ok to hold Asprin for now, resume if hb trend is stable. UTI - UA showed 500 leukocyte, nitrite positive, >100 WBC's, 1+ bacteria. -Follow urine cx Plan - continue Rocephin Hypertension - continue home metoprolol tartrate 25 mg b.i.d. TBI c/b epilepsy (L temporo-occipital lobes) - home regimen: Keppra 2000 mg b.i.d., lacosamide 200 mg b.i.d., clobazam 10 mg b.i.d., Plan - continue home Keppra, lacosamide, clobazam - seizure and aspiration precautions Chronic hypoxic respiratory failure s/p tracheostomy - copious secretions on exam Plan - continue trach care per nursing /RT Hyperlipidemia PAD s/p L AKA - continue home Lipitor 40 mg - fall precautions Incidental findings requiring follow up: 1.6 cm enhancing nodule in the right aspect of the prostate gland,ordered PSA, if elevated for age,consider urology consult, otherwise opt urology follow up Diffuse bladder wall thickening could be secondary to bladder outlet obstruction and associated cystitis. Diet: DIET TUBE FEEDING CONTINUOUS DIET NPO Except: NO EXCEPTIONS DVT Prophylaxis: SCDs only Code Status: Full Code Dispo: Continue inpatient treatment. [facility] Candidate?: Yes, [facility] Transfer Checklist: Reasons for Transfer to [facility] Pending completion of abx, should be dc back to same facility Brief Hospital Course 64-year-old male with a past medical history of hypertension, tracheostomy, TBI, aphasia, epilepsy who presented due to abdominal pain that began yesterday. Patient reports abdominal pain was initially relieved by Tylenol. However, pain began to worsen and there was 1 episode of coffee-ground emesis so the nursing facility where he stays r sent him to the ED for further evaluation. The patient denies fever, chills, shortness of breath, nausea, vomiting, diarrhea, chest pain. Patient endorses abdominal pain, cough, and copious secretions. In the ED, afebrile, VSS, in NAD. Labs notable for Cr 0.57 (around baseline), albumin 1. UA showed 500 leukocyte, nitrite positive, >100 WBC's, 1+ bacteria. Patient was started on Rocephin. CXR basilar atelectasis, no pneumothorax no pleural effusions.Patient admitted to Medicine for management of UTI and concern for coffee-ground emesis. Pertinent PMH: hypertension, tracheostomy, TBI, aphasia, Nutritional Requirements (Dysphagia Diet / TPN / Tube Feed) None, TF resumed Home Meds Being Held: Aspirin due to concern for melena ABx Indications/End Date: IV CTX for UTI Consult Teams Past and Present: IP CONSULT TO NUTRITIONAL SERV Pending Workup: Follow urine cx, tailor abx according to cx Watch for UGIB, on melena on my exam PSA level Things to Watch: Delirium UGIB Disposition Place and Date: Back to his facility when medically ready Follow Up Appointments: (Already arranged and need to arranged) [facility] follow up for 1.6 cm enhancing nodule in the right aspect of the prostate gland Electronically Signed By: Marianne Daniels MD 08/03/2024 7:44 AM The total time spent was 40 minutes performing chart preparation, review of data and visit with thepatient, [id number]: I addressed one or more chronic illnesses with exacerbation/progression/side effects of treatment, two or more stable chronic illnesses, one undiagnosed new problem with uncertain prognosis, one acute illness with systemic symptoms, and/or one acute complicated injury (as documentedabove), [id number]: I reviewed the results of a unique test, ordered a unique test, or performed an assessment requiring an independent historian (as documented above), and [id number]: I discussed the management of the patient and/or the interpretation of a test with a qualified medical profession such as the pharmacist, care coordination team and/or all relevant consultants. AL CARE ATTENDANT documented in this encounter H&P Notes * Satinder Stark DO - 08/03/2024 12:37 AM CST [facility] INTERNAL MEDICINE HISTORY & PHYSICAL NOTE Date of Admission: 08/02/2024 Patient: Bi Tabor Sex: male Age: [age] year old Date of : 1960 Code Status: Prior SUBJECTIVE Chief Complaint: Coffee-ground emesis History of Present Illness: Bi Tabor is a 64-year-old male with a past medical history of hypertension, tracheostomy, TBI, aphasia, epilepsy who presented due to abdominal pain that began yesterday. Patient reports abdominal pain was initially relieved by Tylenol. However, pain began to worsen and there was 1 episode of coffee-ground emesis so the nursing facility where he stays r sent him to the ED for further evaluation. The patient denies fever, chills, shortness of breath, nausea, vomiting, diarrhea, chest pain. Patient endorses abdominal pain, cough, and copious secretions. In the ED, afebrile, VSS, in NAD. Labs notable for Cr 0.57 (around baseline), albumin 1. UA showed 500 leukocyte, nitrite positive, >100 WBC's, 1+ bacteria. Patient was started on Rocephin. CXR basilar atelectasis, no pneumothorax no pleural effusions. HPI difficult to obtain due to communication barrier with tracheostomy. Discussion with patient andchart review for HPI. Past Medical History: Past Medical History: Diagnosis Date Cerebrovascular disease HTN (hypertension) Seizure (HCC) Past Surgical History: Past Surgical History: Procedure Laterality Date ENDOSCOPY, UPPER N/A 03/25/2022 N/A; ESOPHAGOGASTRODUODENOSCOPY (EGD) DIAGNOSTIC with PEG Placement ENDOSCOPY, UPPER N/A 07/18/2024 N/A; EGD(ISO) ENT SURGERY N/A 07/15/2022 N/A; TRANSCERVICAL ZENKERS [...] of Health Financial Resource Strain: Low Risk (07/19/2024) Overall Financial Resource Strain (CARDIA) Difficulty of Paying Living Expenses: Not hard at all Food Insecurity: No Food Insecurity (07/19/2024) Hunger Vital Sign Worried About Running Out of Food in the Last Year: Never true Ran Out of Food in the Last Year: Never true Transportation Needs: No Transportation Needs (07/19/2024) PRAPARE - Transportation Lack of Transportation (Medical): No Lack of Transportation (Non-Medical): No Recent Concern: Transportation Needs - Unmet Transportation Needs (06/18/2024) Received from [facility] PRAPARE - Transportation Lack of Transportation (Medical): Yes Lack of Transportation (Non-Medical): No Stress: No Stress Concern Present (07/19/2024) [employer] [place] [employer] - Occupational Stress Questionnaire Feeling of Stress : Not at all Housing Stability: Low Risk (07/19/2024) Housing Stability Vital Sign Unable to Pay for Housing in the Last Year: No Number of Times Moved in the Last Year: 1 Homeless in the Last Year: No Allergies: Allergies Allergen Reactions Clonazepam Psychiatric hallucinations Home Medications: No current facility-administered medications on file prior to encounter. Current Outpatient Medications on File Prior to Encounter Medication Sig Dispense Refill acetaminophen (Tylenol) 325 MG tablet 2 (two) tablets by Enteral Tube route every 6 hours as neededMaximum allowable Acetaminophen amount = 4 Grams (4000 mg) / 24 hours. (Patient taking differently:2 (two) tablets by Enteral Tube route 3 times daily Maximum allowable Acetaminophen amount = 4 Grams (4000 mg) / 24 hours. Pt takes 160 mg/5mL liquid which is the same as 325 mg tab) albuterol-ipratropium (Duo-Neb) 0.5-2.5 (3) MG/3ML nebulizer solution Inhale 3 mL by mouth every 6 hours as needed for Shortness of Breath or Wheezing artificial tears ophthalmic ointment Instill into both eyes every 8 hours (Patient not taking: Reported on 06/08/2024) aspirin (Aspirin) 81 MG chew tablet 1 [...] mouth 2 times daily 60 tablet 5 finasteride (Proscar) 5 MG tablet 1 (one) tablet by Per G Tube route once daily folic acid (Folvite) 1 MG tablet 1 (one) tablet by Enteral Tube route once daily glycopyrrolate (Robinul) 1 MG tablet 1 (one) tablet by Per G Tube route 2 times daily guaiFENesin (Robitussin) 100 MG/5ML solution 15 mL by Enteral Tube route Every 6 Hours (03,09,15,21) 200 mL 0 lacosamide (Vimpat) 10 MG/ML oral solution 20 mL by Per G Tube route 2 times daily levETIRAcetam (Keppra) 100 MG/ML oral solution 17.5 mL by Enteral Tube route 2 times daily for 90 days 1050 mL 2 magnesium hydroxide (Milk of Magnesia) 400 MG/5ML suspension Take 30 mL by mouth as needed for Constipation metoprolol tartrate IR (Lopressor) 25 MG tablet 1 (one) tablet by Enteral Tube route 2 times daily ondansetron (Zofran) 4 MG tablet 1 (one) tablet by Enteral Tube route every 6 hours as needed for Nausea/Vomiting pantoprazole (Protonix) 40 MG packet Take 1 (one) packet by mouth 2 times daily for 60 days polyethylene glycol 3350 (Miralax) 17 g packet 17 (seventeen) g by Enteral Tube route 2 times daily15 packet 0 senna (Senokot) 8.6 MG tablet 1 (one) tablet by Enteral Tube route once daily 30 tablet 0 Sodium Phosphates (FLEET ENEMA RE) thiamine (Vitamin B-1) 100 MG tablet 1 (one) tablet by Enteral Tube route once daily valproic acid (Depakene) 250 MG/5ML solution 10 mL by Per G Tube route every 8 hours Current Medications: Scheduled: 0.9% NaCl 3 mL Intracatheter q8h cefTRIAXone 2 g Intravenous q24h iopamidol Intravenous Contrast - Once [START ON 08/03/2024] polyethylene glycol 3350 17 g Per G Tube QDAY [START ON 08/03/2024] senna 17.2 mg Per G Tube QDAY Continuous: PRN: SALINE LOCK, INSERT AND MAINTAIN AND 0.9% NaCl AND 0.9% NaCl Review of Systems: Review of Systems Reason unable to perform ROS: tracheostomy. OBJECTIVE Vital Signs: Temp: [97.1 ??F (36.2 ??C)-98.4 ??F (36.9 ??C)] 98.4 ??F (36.9 ??C) Pulse: [65-104] 103 Resp: [9-26] 13 BP: (138-163)/(82-99) 157/99 Physical Exam: Physical Exam HENT: Head: Normocephalic and atraumatic. Mouth/Throat: Mouth: Mucous membranes are dry. Eyes: Pupils: Pupils are equal, round, and reactive to light. Cardiovascular: Rate and Rhythm: Normal rate and regular rhythm. Pulses: Normal pulses. Heart sounds: Normal heart sounds. Pulmonary: Effort: Pulmonary effort is normal. Comments: Trach collar in place Abdominal: General: There is distension. Tenderness: There is abdominal tenderness. Skin: General: Skin is dry. Neurological: Mental Status: He is alert. Lab Results: CBC: Recent Labs Component Name 08/02/24 1708 08/02/24 0203 07/27/24 1826 WBC 8.4 6.3 9.8 HGB 13.6 13.2* 13.1* HCT 41.1 40.1 38.8 MCV 96.3 96.6 95.3 Coagulation Panel: Recent Labs Component Name 08/02/24 1708 07/18/24 0807 06/08/24 0411 09/14/23 0618 09/09/23 0655 09/09/23 0430 PT 12.9 14.4 14.1 - - 17.6* INR 1.0 1.1 1.1 - - 1.5 PTT - - - 31.6 >200.0* >200.0* BMP: Recent Labs Component Name 08/02/24170708/02/243 07/27/24 1826 NA 140 139 139 POTASSIUM 4.5 4.2 4.6* CL 105 105 106 CO2 BUN 14 12 12 CREATININE 0.57* 0.57* 0.57* CALCIUM 9.6 9.6 9.6 Recent Labs Component Name 07/27/24 18207/18/24 0807 06/08/24 041 MAGNESIUM 2.0 2.0 1.9 Recent Labs Component Name 07/18/24 0807 06/08/24 0411 05/15/24 1240 PHOS 4.2 3.0 3.6 Hepatic Panel: Recent Labs Component Name 08/02/24170708/02/2420207/27/24 1826 06/09/23 1314 02/28/23 0541 08/28/22 1251 06/30/22 1039 03/03/18 1745 01/30/18 1255 AST 25 15 15 - 13 - 13 - 14 ALT 14 10 13 - 7 - 5 - 10 ALKPHOS 94 92 95 - 79 - 65 - 75 TBILI 0.4 0.3 0.3 - 0.2 - 0.3 - 0.4 DBILI - - - - 0.1 - 0.2 - 0.2 IBILI - - - - 0.1 - 0.1 - 0.2 ALB 3.8 3.6 3.4 - 2.5* - 2.2* - 3.7 - = values in this interval not displayed. ABG: Recent Labs Component Name 06/09/23201306/09/23 19006/09/23 1703 01/07/23 1224 01/03/23 1132 12/31/22 2217 PH 7.41 7.27* 7.28* - 7.49* 7.44 PCO2 40 - - - 34* 36 PO2 82 - - - 108* 151* - = values in this interval not displayed. Amylase/Lipase: Invalid input(s): AMYL , LIPA Thyroid Studies: Recent Labs Component Name 06/09/23 1314 TSH 1.238 Cardiac Enzymes: Recent Labs Component Name 07/16/24 2244 07/01/22 1634 06/28/22 0141 06/27/22 2215 05/30/22 1750 CKTOTAL 92 - - - - TROPONINI - - <0.010 <0.010 <0.010 - = values in this interval not displayed. Lipid Panel: Recent Labs Component Name 06/08/24 0411 LDLCALC 88 HDL 35* Imaging & Studies: CT Chest Abdomen Pelvis W Cont Result Date: 08/02/2024 Impression: 1.Trace left-sided pleural effusion, bilateral dependent and subsegmental atelectasis, likely from retained secretions. 2.Coronary artery atherosclerotic disease. Findings indicating age indeterminate left ventricular myocardial infarction. 3.Small hiatal hernia and mild diffuse mural thickening of the esophagus suggesting reflux esophagitis. 4.Punctate nonobstructing kidney stone in the upper pole of the left kidney. 5.Enhancing liver lesion better characterized on prior study and likely representing flash filling hemangiomas. 6.1.6 cm enhancing nodule in the right aspect of the prostate gland, correlate with PSA. 7.Diffuse bladder wall thickening could be secondary to bladder outlet obstruction and associated cystitis. > Dictated by Justin Burrell MD (radiology specialist). I, Bebo Kuo MD have personally reviewed and interpreted this examination/study. > Interpreting Provider: Bebo Kuo MD on 08/02/2024 11:[address] Chest Abdomen Pelvis W Cont Result Date: 07/28/2024 Impression 1.Dependent pulmonary opacities compatible with atelectasis and/or aspiration. There is debris within lower lobe bronchi and the right mainstem bronchus suggestive of aspiration. 2.Nonobstructive bilateral nephrolithiasis. 3.Multiple enhancing liver lesions measuring up to 1.3 cm. In theabsence of underlying liver disease, these may represent flash filling hemangiomas. 4.A 1.8 cm enhancing nodule in the right aspect of the prostate gland. Recommend correlation with PSA. 5.Liquefied stool noted in the rectum with air-fluid level, which may be secondary to underlying diarrheal illness. 6.Mild bladder wall thickening, which may be secondary to nondistended state. Recommend correlation with UA if there is concern for cystitis. Report dictated by Flavio Stover MD(radiology specialist). I, Charles Hare MD have personally reviewed and interpreted this examination/study. > Interpreting Provider: Charles Hare MD on 07/28/2024 10:40 AM ASSESSMENT & PLAN Generalized abdominal pain (POA: Unknown) Acute cystitis without hematuria (POA: Unknown) Nausea without vomiting (POA: Unknown) Coffee-ground emesis Nausea Abdominal pain History dysphagia C/B chronic aspiration s/p peg - last EGD did not show signs of active bleeding - apixaban discontinued at discharge last admission Plan - Protonix 40 mg b.i.d. - consult to nutrition for tube feeding, holding for now - consult TIA - ondansetron - IV p.r.n. for nausea print - holding home asa UTI - UA showed 500 leukocyte, nitrite positive, >100 WBC's, 1+ bacteria. Plan - continue Rocephin TBI c/b epilepsy (L temporo-occipital lobes) - home regimen: Keppra 2000 mg b.i.d., lacosamide 200 mg b.i.d., clobazam 10 mg b.i.d., Plan - continue home Keppra, lacosamide, clobazam - seizure and aspiration precautions Hypertension - continue home metoprolol tartrate 25 mg b.i.d. Chronic hypoxic respiratory failure s/p tracheostomy - copious secretions on exam Plan - trach care b.i.d. and p.r.n. Hyperlipidemia PAD s/p L AKA - continue home Lipitor 40 mg - fall precautions Code: Full Diet: NPO Electrolytes: Replete PRN PPx: SCDs Access: PIV Dispo: Admit to Medicine. The above assessment and plan will be discussed with the attending. This note is not final until attested by attending physician. Satinder Stark DO Internal Medicine Resident [facility] 08/02/2024 10:38 PM documented in this encounter Consult Notes * Gaurav Leroy PA-C - 08/06/2024 11:03 AM CDTAssociated Order(s): IP CONSULT TO INTERVENTIONAL RADIOLOGY Vascular & Interventional Radiology New Inpatient Consult Patient: Bi Tabor Age: [age] year old Date of : 1960 Date of Admission: 08/02/2024 Date: 08/06/2024 Subjective: Referring physician: Erika Reason for consult: PEG replacement HPI: 64 year old male with medical hx of HLD, HTN, TBI and epilepsy with prior trach and GJ tube placement (at OSH) who presented to [facility] on 08/02 with c/o abdominal pain and coffee ground emesis fromNF. On arrival, VSS. UA concerning for UTI, started on abx and admitted for further care. GJ tube noted to be loose on exam. Per chart review, GJ exchanged at [facility] on 06/22. Prior CT CAP on 08/02 demonstrates tubing in appropriate position with balloon in stomach, bumper noted to be loose on skin. CT AP w/o contrast performed this AM preliminary demonsrtates GJ has now coiled in stomach, no balloon noted. Per primary team, pt try to pull out tubing. At bedside, pt resting comfortably, +trach collar. He denies abdominal pain--GJ catheter with dark SS output. VSS. Hgb on 08/05, 12.8. Past Medical History: Diagnosis Date Cerebrovascular disease HTN (hypertension) Seizure (HCC) Past Surgical History: Procedure Laterality Date ENDOSCOPY, UPPER N/A 03/25/2022 N/A; ESOPHAGOGASTRODUODENOSCOPY (EGD) DIAGNOSTIC with PEG Placement ENDOSCOPY, UPPER N/A 07/18/2024 N/A; EGD(ISO) ENT SURGERY N/A 07/15/2022 N/A; TRANSCERVICAL ZENKERS DIVERTICULECTOMY, OPEN TRACHEOSTOMY Leg Amputation, Below Knee Left 03/15/2022 Left; LEFT BKA POSS AKA SINUS SURGERY N/A 11/26/2022 N/A; Bilateral Nasal Endoscopy, Right polypectomy, Right Maxillary Antrostomy, Rihjy Anterior Ethmoidectomy Allergies Allergen Reactions Clonazepam Psychiatric hallucinations Social History Tobacco Use Smoking status: Former [...] not pertinent to the presenting problem. ROS: Limited ROS performed--pt able to answer limited yes/no questions on exam. Medications: Scheduled: 0.9% NaCl 3 mL Intracatheter q8h [Held by Provider] atorvastatin 40 mg Enteral Tube AT BEDTIME bisacodyl 10 mg Rectal BID [Held by Provider] cloBAZam 10 mg Enteral Tube BID [Held by Provider] folic acid 1 mg Enteral Tube QDAY [Held by Provider] glycopyrrolate 1 mg Enteral Tube BID [Held by Provider] guaiFENesin 15 mL Enteral Tube Every 6 Hours (,,15,) lacosamide 200 mg Intravenous BID levETIRAcetam 1,000 mg Intravenous q12h metoprolol 5 mg Intravenous q8h [Held by Provider] metoprolol tartrate IR 25 mg Enteral Tube BID pantoprazole 40 mg Intravenous BID piperacillin-tazobactam 4.5 g Intravenous q8h [Held by Provider] polyethylene glycol 3350 17 g Per G Tube QDAY [Held by Provider] sennosides 8.6 mg Enteral Tube QDAY [Held by Provider] thiamine 100 mg Enteral Tube QDAY valproate 500 mg Intravenous q12h [Held by Provider] valproic acid 500 mg Per G Tube q8h PRN: SALINE LOCK, INSERT AND MAINTAIN AND 0.9% NaCl AND 0.9% NaCl albuterol-ipratropium bisacodyl calcium carbonate (500 mg elemental Ca/5 mL) dextrose IV for hypoglycemia OR dextrose IV for hypoglycemia OR glucagon glucose (Diabetic Use) gel hydrALAZINE morphine ondansetron oxyCODONE Infusions: dextrose 5 % and lactated ringers, , Last Rate: 75 mL/hr at 08/05/24 1215 Objective: Physical examination: BP 142/74 Pulse 74 Temp 98.2 ??F (36.8 ??C) Resp 18 Ht 1.753 m (5' 9.02 ) Wt 72.6 kg (160lb) SpO2 100% Estimated body mass index is 23.62 kg/m?? as calculated from the following: Height as of this encounter: 1.753 m (5' 9.02 ). Weight as of this encounter: 72.6 kg (160 lb). General: NAD HEENT: atraumatic, +trach collar Lungs: normal respiratory effort, no accessory muscle use to trach collar Cardiovascular: regular rate Abdomen: soft, nontender, nondistended, GJ access site nontender to palpation--bumper very loose onexam w/ ss output in catheter Extremities: warm, no pitting edema Psychiatric: Awake, able to answer yes/no questions appropriately Laboratory findings: Recent Labs Component Name 08/05/24 01008/04/24121108/03/24 0518 03/09/22 0135 03/08/22 1455 WBC 6.3 6.7 9.0 - 20.8* HGB 12.8* 12.8* 13.6 - 14.3 HCT 38.5* 38.0* 40.1 - 42.9 PLTCOUNT 187 201 240 - 211 PLATELET - - - - Occasional* - = values in this interval not displayed. Recent Labs Component Name 08/05/24 01008/04/24 12108/03/24 0518 INR 1.1 1.1 1.1 Recent Labs Component Name 08/05/24 0102 08/04/24 1212 08/03/24 0518 NA 140 140 140 GLUCOSE 79 107* 98 CREATININE 0.63* 0.61* 0.65* EGFR >90 >90 >90 Recent Labs Component Name 08/05/24 0102 08/04/24 1212 08/03/24 0518 08/02/24 1708 08/02/24 0203 07/27/24 1826 ALB 3.3* 3.5 3.7 3.8 3.6 3.4 TBILI - - - 0.4 0.3 0.3 ALT - - - 14 10 13 AST - - - 25 15 15 ALKPHOS - - - 94 92 95 Imaging: Relevant imaging studies were personally reviewed by myself and the IR attending, Fito. XR Abdomen Kub Portable Result Date: 08/05/2024 IMPRESSION: No radiographic evidence of acute intra-abdominal process. Report dictated by Sierra Lyman Dr, MD (radiology specialist). I, Ramon Ross MD have personally reviewed and interpreted this examination/study. > Interpreting Provider: Ramno Ross MD on 08/05/2024 5:[address] Chest Abdomen Pelvis W Cont Result Date: 08/02/2024 Impression: 1.Trace left-sided pleural effusion, bilateral dependent and subsegmental atelectasis, likely from retained secretions. 2.Coronary artery atherosclerotic disease. Findings indicating age indeterminate left ventricular myocardial infarction. 3.Small hiatal hernia and mild diffuse mural thickening of the esophagus suggesting reflux esophagitis. 4.Punctate nonobstructing kidney stone in the upper pole of the left kidney. 5.Enhancing liver lesion better characterized on prior study and likely representing flash filling hemangiomas. 6.1.6 cm enhancing nodule in the right aspect of the prostate gland, correlate with PSA. 7.Diffuse bladder wall thickening could be secondary to bladder outlet obstruction and associated cystitis. > Dictated by Justin Burrell MD (radiology specialist). IBebo MD have personally reviewed and interpreted this examination/study. > Interpreting Provider: Bebo Kuo MD on 08/02/2024 11:19 PM Recommendations: 64 year old male with above medical hx stated in HPI referred to [facility] for evaluation of gastrostomy tube replacement (confirmed it is gastrojejunostomy tube). Pertinent labs and relevant imaging studies were reviewed in detail and discussed by VIR staff. Plan to pursue image-guided percutaneous gastrojejunostomy tube replacement as schedule allows. Risks, benefits, and alternatives of the procedure were discussed in detail. Risks include but are not limited to infection, bleeding, and injury to surrounding structures. All questions were answered to thebest of my ability. The following physicians are qualified to perform the procedure and include: Stanley Martinez, Alyse, Jyothi Payton Packianathan, Serban, Sherwani, Malik, Pereira. Written informed consent will be obtained prior to the procedure. Continue to keep patient NPO for the procedure. Hold all anticoagulants. Plan for VIR image-guided percutaneous gastrojejunostomy tube replacement. The IR attending, Dr. Payton, is in agreement with the above recommendations. The case was discussed with Dr James from the referring service on 08/06/2024 at ~1240. [facility]C Interventional Radiology [facility] Associated attestation - Krystal Payton MD - 08/06/2024 1:03 PM CDT Attending Physician Attestation Date of Service: 08/06/2024 For this patient encounter, I have reviewed the PA's note. I have personally reviewed the patient'slabs, imaging, medications, and allergies. I agree with the history, physical exam findings, assessment, and plan. KRYSTAL PAYTON MD Director Of Software Engineering Vascular & Interventional Radiology 08/06/2024 1:03 PM * Aylin Servin RD/ONI - 08/03/2024 2:12 PM CSTAssociated Order(s): IP CONSULT TO NUTRITIONAL SERV BRIEF SYNOPSIS: Nutrition Risk Identified and meets criteria for Moderate Protein Calorie malnutrition. Malnutrition Etiology Malnutrition in the context of: chronic disease (08/03/24 1400) Malnutrition Severity: Moderate Protein Calorie (08/03/24 1400) Fat Loss: Loss of Subcutaneous Fat Orbital: Moderate Buccal: Moderate Tricep: Moderate Muscle Loss: Muscle Loss Temples (Temporalis Muscle): Moderate Clavicles (Pectoralis & Deltoids): Moderate There is no height or weight on file to calculate BMI. GI Concerns: Nausea;Vomiting (abdominal pain, coffee ground emesis) Nutrition Plan: Current diet order: NPO TF Recommendations: Jevity 1.5 at 55 ml/hr. Provides 1980 kcal, 84 g protein, 285 g carbohydrate, 1003 ml free water. +50 ml q 6 hrs free water flush or per MD if on IVF +100 ml q 4 hrs free water flush or per MD if not on additional fluids Start at 20ml/hr and increase by 10ml/hr q 4 hrs until at goal PPN Recommendations: + Day 1 PPN contains 765 Kcal, 55 g protein and is composed of 545 kcalories Dextrose & 0 kcalories Lipid and will have a ~1:1 Acetate:Chloride Ratio with a total volume of 2000 mL. + Goal PPN will contain 1,528 kcal, 65 gm protein, 408 kcal dextrose, & 860 kcal lipids in 2000mL's to keep osmolarity between 700-900 mOsm/L. Recommendation to Physician: Code for moderate malnutrition (E44), please add to active problem list and physician note. + TF Recommendations above. Discharge Needs: Nutritional Supplement at Discharge: N/A (home tube feeding regime) CLINICAL NUTRITION ASSESSMENT: RD consulted per home tube feeding regimen. Pt is trach and PEG dependent. TF Recommendations above. Per internal med note, holding TF for not. If pt needs to remains NPO and TF can not be restarted,PPN recommendations above Pt had an episode of coffee ground emesis [employer] and c/o abdominal pain and nausea. Pt also is having loose/watery bowel movements. Labs reviewed. Lytes WNL. Wt reviewed. Pt has had a 10# wt loss since 06/08. Wt decrease from 170# to 160#. This is a 5.8% wt loss within 3 months. This is not a significant wt loss per ASPEN criteria. RD Monitoring. Pt has visible signs of moderate muscle wasting and subcutaneous fat loss. This does meet ASPEN criteria for malnutrition. RD Following. Med/Surg History and Clinical Diagnoses: is a 64-year-old male with a past medical history of hypertension, tracheostomy, TBI, aphasia, epilepsy who presented due to abdominal pain that began yesterday. BMI: There is no height or weight on file to calculate BMI. BMI Range: Normal Recent Weights/Methods 04/21/2024 1511 04/30/2024 2127 06/07/2024 1708 06/08/2024 2227 07/16/2024 2130 07/17/2024 0920 08/02/2024 0129 Weight: 77.1 kg (170 lb) 77.1 kg (170 lb) 77.1 kg (170 lb) 77.1 kg (170 lb) 77.1 kg (170 lb) 73 kg (160 lb 15 oz) 72.6 kg (160 lb) Weight Method : Estimated Stated Estimated Bed scale Stated Bed scale Stated Unintentional weight change: Wt reviewed. Pt has had a 10# wt loss since 06/08. Wt decrease from 170# to 160#. This is a 5.8% wt loss within 3 months. This is not a significant wt loss per ASPEN criteria. RD Monitoring. PO INTAKE Current diet order: NPO Nutrition recommendation: alter/change nutrition order Food Allergies: No known food allergies Last 48 hr PO INTAKE No data recorded Supplement(s) Consumed- Last 48 hours None Pain affecting intake: No Chewing/Swallowing: (npo; trach) GI Concerns: Nausea;Vomiting (abdominal pain, coffee ground emesis) Stools: Stool Appearance : Loose;Watery (08/03/24 1028) Skin/Wound: WDL Estimated Needs: KCAL: 1815 - 2178 kcals/kg (25 - 30 kcals/kg) Protein (g): 87 g (1.2 g/kg) Fluid (ml): 1 ml/kcal Needs based on: Kcal/kg- (Comment) (72.6 kg ABW) Recommended Access Route: PO Labs: Recent Labs Component Name 08/03/2451708/02/24170708/02/24 0203 07/27/24 1826 NA 140 140 139 139 POTASSIUM 4.4 4.5 4.2 4.6* CO2 25 28 BUN 14 14 12 12 CREATININE 0.65* 0.57* 0.57* 0.57* GLUCOSE 98 102* 91 97 CALCIUM 9.8 9.6 9.6 9.6 ALT - 14 10 13 ALKPHOS - 94 92 95 AST - 25 15 15 EGFR >90 >90 >90 >90 Recent Labs Component Name 08/03/24 0518 07/18/24 0807 06/08/24 0411 PHOS 3.7 4.2 3.0 Recent Labs Component Name 08/03/24 0518 07/27/24 1826 07/18/24 0807 MAGNESIUM 1.9 2.0 2.0 Recent Labs Component Name 08/03/24 0518 08/02/24 1708 08/02/24 0203 HGB 13.6 13.6 13.2* HCT 40.1 41.1 40.1 Recent Labs Component Name 08/03/24 0518 08/29/22 0537 05/12/22 0314 HGBA1C 5.3 4.4 4.4 No data found. MEDICATIONS FOR CURRENT ENCOUNTER: SCHEDULED MEDICATIONS: 0.9% NaCl injection 3 mL, Intracatheter, q8h atorvastatin (Lipitor) tablet 40 mg, Enteral Tube, AT BEDTIME cefTRIAXone (Rocephin) syringe 2,000 mg, Intravenous, q24h cloBAZam (Onfi) tablet 10 mg, Enteral Tube, BID folic acid (Folvite) tablet 1 mg, Enteral Tube, QDAY glycopyrrolate (Robinul) tablet 1 mg, Enteral Tube, BID guaiFENesin (Robitussin) solution 15 mL, Enteral Tube, Every 6 Hours (03,09,15,21) iopamidol (Isovue 370) 76 % contrast, Intravenous, Contrast - Once lacosamide (Vimpat) oral solution 200 mg, Per G Tube, BID levETIRAcetam (Keppra) oral solution 1,750 mg, Enteral Tube, BID metoprolol tartrate IR (Lopressor) tablet 25 mg, Enteral Tube, BID pantoprazole (Protonix) injection 40 mg, Intravenous, BID polyethylene glycol 3350 (Miralax) packet 17 g, Per G Tube, QDAY senna (Senokot) tablet 8.6 mg, Enteral Tube, QDAY thiamine (Vitamin B-1) tablet 100 mg, Enteral Tube, QDAY valproic acid (Depakene) solution 500 mg, Per G Tube, q8h [COMPLETED] levETIRAcetam (Keppra) 3,000 mg in 0.9% NaCl IV 280 mL IVPB, Intravenous, Now [COMPLETED] pantoprazole (Protonix) injection 40 mg, Intravenous, Now CONTINUOUS MEDICATIONS: PRN MEDICATIONS: Or Or 0.9% NaCl injection 1-10 mL, Intracatheter, PRN albuterol-ipratropium (Duo-Neb) nebulizer solution 3 mL, Inhalation, q6h PRN bisacodyl (Dulcolax) suppository 10 mg, Rectal, QDAY PRN calcium carbonate (500 mg elemental Ca/5 mL) suspension, Enteral Tube, q6h PRN dextrose IV 12.5 g, Intravenous, PRN dextrose IV 25 g, Intravenous, PRN glucagon (Glucagen) injection 1 mg, Subcutaneous, PRN glucose (Diabetic Use) oral gel, Oral, PRN magnesium hydroxide (Milk Of Magnesia) suspension 30 mL, Oral, QDAY PRN Nutrition Diagnostic Statement: Malnutrition related to:: increased nutrient needs due to illness as evidenced by:: loss of subcutaneous fat;loss of muscle mass Nutrition Diagnostic Statement Progress: New diagnostic statement established Nutrition Intervention: Enteral nutrition: Education needed: None Education Provided: Not indicated (08/03/24 1400) Monitoring: GI, TF tolerance, WT, labs, medications Monitor per nutrition guidelines. Risk Level: At Risk for Malnutrition Evaluation: Nutrition Goal: Enteral/Parenteral Nutrition prescription will be consistent with estimated nutrient needs Nutrition Goal Timeframe: Ongoing Nutrition Goal Progress: New goal established Aylin Servin MS, RD/RDN, LD [employer] [id number] AL CARE ATTENDANT documented in this encounter OR Notes * Brief Op Note - Krystal Payton MD - 08/06/2024 2:00 PM CDT Vascular & Interventional Radiology Brief Post-Procedure Note Patient: Bi Tabor Attending: Krystal Payton MD Hide Dyer: None Diagnosis/Indication: Traumatic brain injury, dysphagia Procedure: Percutaneous Gastrojejunostomy catheter exchange Findings: Balloon of existing catheter had burst and catheter retracted. A new 18 F Gastrojejunostomy catheter placed. Anesthesia: Topical lidocaine jelly Additional medications given: None Estimated blood loss: Minimal Specimens: None Immediate complications: None Follow-up: The catheter can be used now. Flush the catheter with 30 mL of water before and after each use. If possible, use liquid formulation of medications and avoid crushed pills to maintain catheter patency. Do not place dressing underneath the round rubber retention device. In case of abdominal distension, discomfort, or [...] documented in this encounter ED Notes * Ritesh Ward RN - 08/03/2024 9:30 PM CST Floor called to get report on pt after several attempts for me to call report. I was in a room getting an EMS pt, told will call back. AL CARE ATTENDANT * Ritesh Ward RN - 08/03/2024 9:25 PM CST Waited 15 min for call back from floor for report, number for [facility] [place] goes to a fax line. Asked charge for phone number. Pharmacy called about a narcotic for patient and let them know I was trying to get patient to floor, pharmacy said that the med could wait and that they would send the medto the floor. AL CARE ATTENDANT * Ritesh Ward RN - 08/03/2024 9:15 PM CST Attempted report to [address] answered and said she would have the right side call me back. AL CARE ATTENDANT * Ritesh Ward RN - 08/03/2024 8:45 PM CST Pt resting, eyes closed. Tube feed running at 55ml/hr. Pt is in no apparent distress. AL CARE ATTENDANT * Alin Brownlee RN - 08/03/2024 10:25 AM CST Pt incontinent of stool and urine. New condom cath applied . Wet to dirty linens changed. AL CARE ATTENDANT * Raul Aguirre RN - 08/03/2024 3:25 AM CST Patient trach and mouth suctioned per request. Patient resting in bed; breathing even and unlabored. Denies needs. AL CARE ATTENDANT * Raul Aguirre RN - 08/03/2024 2:05 AM CST Patient resting in bed; breathing even and unlabored. Denies needs. AL CARE ATTENDANT * Raul Aguirre RN - 08/02/2024 11:59 PM CST Patient resting in bed; breathing even and unlabored. Trach and mouth suctioning completed. Denies needs. AL CARE ATTENDANT * Arthur Marinelli MD - 08/02/2024 11:56 PM CST ASSUMED CARE NOTE Patient signed out to me by Dr. Johnson at 11:00 PM. Briefly, iB Tabor is a 64 year old male is being evaluated for coffee ground emesis and abdominal pain. Patient was recently discharged last night for a similar presentation. At this time the patient's condition is Stable. Thus far, studies reveal UTI that is receptacle to [facility]. Pending medicine assumption of care. Plan is admit to medicine. Vitals: 08/02/24 2055 08/02/24212408/02/240 08/02/24 2330 BP: 151/95 157/99 168/96 169/96 Pulse: 88 103 85 86 Resp: 15 13 15 16 Temp: SpO2: 99% 97% 100% 98% ED Course: ED Course as of 08/02/24 2359 Marian Aug 02, 2024 1646 Pt log rolled to his left side. No obvious trauma or wounds. [MP] 2233 After discussion with internal medicine, the patient will be admitted to their service for further management of UTI and persistent nausea/vomiting. Admitting provider is Dr. Cao. - I have reviewed the diagnostic findings with the patient and they have had an opportunity to ask me any questions they have about care, diagnosis, and reason for admission. The patient states understanding and agrees to admission. [MP] 2241 Medicine has assumed care [MP] ED Course User Index [MP] Rossana Nicholas Clinical Impressions as of 08/02/24 2359 Nausea without vomiting Acute cystitis without hematuria Generalized abdominal pain Clinical Impression: 1. Nausea without vomiting 2. Acute cystitis without hematuria 3. Generalized abdominal pain Disposition: Admitted to internal medicine By signing my name below, I, Akbar Shannondwight, attest that this documentation has been prepared under the direction and in the presence of Dr. Marinelli. Signed: Laisha Arora. I, Dr. Marinelli, personally performed the services described in this documentation. All medical record entries made by the scribe were at my direction and in my presence. I have reviewed the chart and agree that the record reflects my personal performance and is accurate and complete. AL CARE ATTENDANT * Raul Aguirre RN - 08/02/2024 10:00 PM CST Patient trach suctioned on return from CT. AL CARE ATTENDANT * Raul Aguirre RN - 08/02/2024 10:00 PM CST Patient resting in bed; breathing even and unlabored. Denies needs. AL CARE ATTENDANT * Raul Aguirre RN - 08/02/2024 9:00 PM CST Patient suctioned multiple times per request. New trach dressing applied. Patient's condom cath came loose. New condom cath applied. Wet/dirty linens changed. RT called for transport eval. Patient prepared for transport to [place]. AL CARE ATTENDANT * Jake Esparza RN - 08/02/2024 6:34 PM CST Bed: [facility] Expected date: Expected time: Means of arrival: Comments: T2 AL CARE ATTENDANT * Elmo Johnson MD - 08/02/2024 4:41 PM CST Emergency Medicine Attending Physician Note Chief Complaint Patient presents with Vomiting Pt BIBEMS from SNF for abd pain past few days, pt vomited at snf and staff called EMS, pt suctionedby EMS 2x, pt hx of TBI, Trach, HTN, aphasia, epilepsy, pt arrives HR 107, 94% 8L blowby, Resident Attestation: Patient seen and evaluated with the resident(s), Dr. Coombs, who also contributed to this note. I have performed an independent history and physical examination and discussed the patient's management with the resident. I confirm the resident's findings, assessment as documented in his or her note(s), except where revised in this note. HISTORY History obtained from: Patient, Chart Bi Tabor is a 64 year old male with PMHx of HTN, epilepsy, BPH, aphasia from prior CVA, GERD, COPD, DM2, vascular dementia who presents [facility] for coffee ground emesis and abdominal pain. Pt was here last night for similar presentation. Per EMS, pt got back to SNF and vomited, so they sent him back here. Pt says he feels worse now than he did last night. Pt denies chest pain or trouble breathing. Pt denies urinary discomfort. EMS BP 150s/90s, HR 90-110s. Pt's tracheotomy is on 8L blowby at baseline. Past Medical History: Diagnosis Date Cerebrovascular disease HTN (hypertension) Seizure (HCC) Past Surgical History: Procedure Laterality Date ENDOSCOPY, UPPER N/A 03/25/2022 N/A; ESOPHAGOGASTRODUODENOSCOPY (EGD) DIAGNOSTIC with PEG Placement ENDOSCOPY, UPPER N/A 07/18/2024 N/A; EGD(ISO) ENT SURGERY N/A 07/15/2022 N/A; TRANSCERVICAL ZENKERS [...] of Health Financial Resource Strain: Low Risk (07/19/2024) Overall Financial Resource Strain (CARDIA) Difficulty of Paying Living Expenses: Not hard at all Food Insecurity: No Food Insecurity (07/19/2024) Hunger Vital Sign Worried About Running Out of Food in the Last Year: Never true Ran Out of Food in the Last Year: Never true Transportation Needs: No Transportation Needs (07/19/2024) PRAPARE - Transportation Lack of Transportation (Medical): No Lack of Transportation (Non-Medical): No Recent Concern: Transportation Needs - Unmet Transportation Needs (06/18/2024) Re[facility] from [facility] PRAPARE - Transportation Lack of Transportation (Medical): Yes Lack of Transportation (Non-Medical): No Stress: No Stress Concern Present (07/19/2024) [employer] [place] [employer] - Occupational Stress Questionnaire Feeling of Stress : Not at all Housing Stability: Low Risk (07/19/2024) Housing Stability Vital Sign Unable to Pay for Housing in the Last Year: No Number of Times Moved in the Last Year: 1 Homeless in the Last Year: No ROS - See HPI. PHYSICAL EXAM BP 157/99 Pulse 103 Temp 98.4 ??F (36.9 ??C) Resp 13 SpO2 97% Physical Exam Vitals reviewed. Constitutional: General: He is awake. He is not in acute distress. Appearance: He is normal weight. He is ill-appearing. Comments: Aphasic, dried coffee ground emesis on pt's gown HENT: Head: Normocephalic and atraumatic. Mouth/Throat: Pharynx: Oropharynx is clear. Eyes: Extraocular Movements: Extraocular movements intact. Pupils: Pupils are equal, round, and reactive to light. Neck: Trachea: Tracheostomy present. Cardiovascular: Rate and Rhythm: Regular rhythm. Tachycardia present. Pulses: Normal pulses. Radial pulses are 2+ on the right side and 2+ on the left side. Heart sounds: Normal heart sounds. Pulmonary: Effort: Pulmonary effort is normal. Comments: Coarse breath sounds bilaterally Abdominal: General: There is distension. Palpations: Abdomen is soft. Tenderness: There is abdominal tenderness in the right upper quadrant. Comments: G-tube in place, clean dry and intact Musculoskeletal: General: No swelling. Cervical back: Normal and normal range of motion. Thoracic back: Normal. Lumbar back: Normal. Left Lower Extremity: Left leg is amputated above knee. Skin: General: Skin is warm. Neurological: General: No focal deficit present. Motor: Motor function is intact. Psychiatric: Behavior: Behavior normal. MEDICAL DECISION MAKING Problem List: tachycardia, coffee ground emesis, abdominal pain DDx: aspiration vs hospital obtained pneumonia vs persistent peptic ulcer disease vs pancreatitis vs SBO vs UTI vs other Plan: Labs, imaging, symptomatic control, re-evaluation RESULTS Labs Reviewed CBC W AUTO DIFFERENTIAL - Abnormal; Notable for the following components: Result Value RBC Count 4.27 (*) MPV 13.0 (*) All other components within normal limits COMPREHENSIVE METABOLIC PANEL - Abnormal; Notable for the following components: Creatinine 0.57 (*) Glucose 102 (*) BUN/Creatinine Ratio 25 (*) Albumin/Globulin Ratio 1.0 (*) All other components within normal limits URINALYSIS REFLEX TO MICROSCOPIC NO CULTURE - Abnormal; Notable for the following components: Clarity UA Turbid (*) Protein UA Trace (*) Urobilinogen UA 3.0 (*) Nitrite UA Positive (*) Leukocyte UA 500 NOEL/uL (*) RBC UA 11-20 (*) WBC UA >100 (*) Bacteria UA 1+ (*) All other components within normal limits LIPASE BLOOD - Normal Narrative: Lipase results from the [employer] Alinity analyzer may not be comparable with other methodologies. PT-INR [facility] - Normal TYPE + SCREEN PANEL XR CHEST 1VW PORTABLE (Results Pending) CT Chest Abdomen Pelvis W Cont (Results Pending) INTERVENTIONS: Medications 0.9% NaCl injection 3 mL (3 mL Intracatheter $ Given 08/02/242199) And 0.9% NaCl injection 1-10 mL (has no administration in time range) cefTRIAXone (Rocephin) syringe 2,000 mg (2,000 mg Intravenous $ Given 08/02/241818) iopamidol (Isovue 370) 76 % contrast (100 mL Intravenous $ Given - Contrast 08/02/242130) polyethylene glycol 3350 (Miralax) packet 17 g (has no administration in time range) senna (Senokot) tablet 17.2 mg (has no administration in time range) pantoprazole (Protonix) injection 40 mg (40 mg Intravenous $ Given 08/02/241818) levETIRAcetam (Keppra) 3,000 mg in 0.9% NaCl IV 280 mL IVPB (0 mg Intravenous Stopped 08/02/242228) Procedures DATA INTERPRETATION Patient seen and evaluated, available studies reviewed I personally interpreted the following imaging studies: CXR: No obvious pneumothorax or focal consolidation. Mild bibasilar atelectasis. Left retrocardiac opacification could represent atelectasis or aspiration seen on previous CT chest. MEDICAL DECISION MAKING I personally discussed this case with the following Physicians/consultants: N/A Time critical events not noted above: (These events are recorded by multiple users, and are therefore subject to redundancy and/or error) ED Course as of 08/02/242243 Marian Aug 02, 2024 1646 Pt log rolled to his left side. No obvious trauma or wounds. [MP] 2233 After discussion with internal medicine, the patient will be admitted to their service for further management of UTI and persistent nausea/vomiting. Admitting provider is Dr. Cao. - I have reviewed the diagnostic findings with the patient and they have had an opportunity to ask me any questions they have about care, diagnosis, and reason for admission. The patient states understanding and agrees to admission. [MP] 2243 Medicine has assumed care [MP] ED Course User Index [MP] Rossana Nicholas Clinical Impressions as of 08/02/242243 Nausea without vomiting Acute cystitis without hematuria Generalized abdominal pain Medications given in ED: Yes - see MAR Medications prescribed: No Revised home medications: No Amount and/or Complexity of Data Reviewed medical complexity: Triage notes and available nursing notes reviewed , Clinical lab tests: orderedand reviewed, Tests in the radiology section of CPT??: ordered and independent interpretation, Independent visualization of images: yes, Decide to obtain previous medical records or to obtain historyfrom someone other than the patient: yes, see HPI , and Review and summarize past medical records: yes Shared decision making: Results of workup including labs and imaging discussed with patient at length. All questions answered. Patient agreeable to admission. Patient is at significant risk of morbidity and/or mortality if discharged, will admit. Critical Care Time: N/A ED FINAL DIAGNOSIS 1. Nausea without vomiting 2. Acute cystitis without hematuria 3. Generalized abdominal pain Please see resident note (if present) for further details. DISPOSITION Admit to medicine under Dr. Cao By signing my name below, I, Rossana Nicholas, attest that this documentation has been prepared under the direction and in the presence of Dr. Johnson. Signed: Laisha Toledo. I, Dr. Johnson, personally performed the services described in this documentation. All medical record entries made by the scribe were at my direction and in my presence. I have reviewed the chart and agree that the record reflects my personal performance and is accurate and complete. Electronically signed: Dr. Johnson. Elmo Johnson M.D. 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 Click on ???Sign?? to file the note. Patient Name: Bi Tabor Please review the clinical information below and clarify the nutritional status as documented in the RD consult note on 08/03. Choices may include but are not limited to: Moderate protein calorie malnutrition, POA Other, please specify Unable to determine The medical record reflects the following: Risk Factors: 64 year old male, PMH: HTN, tracheostomy, TBI, aphasia, epilepsy, Peg tube dependent Clinical Findings: Per RD consult note on 08/03: meets criteria for Moderate Protein Calorie malnutrition Loss of Subcutaneous Fat: Orbital: Moderate, Buccal: Moderate, Tricep: Moderate Muscle Loss: Temples (Temporalis Muscle): Moderate, Clavicles (Pectoralis & Deltoids): Moderate There is no height or weight on file to calculate BMI. Treatment: RD consult, Peg tube dependent, Tube feed: Jevity 1.5 at 55ml/hr PROVIDER RESPONSE (Use F2 to respond) Moderate protein calorie malnutrition, POA Please provide your clinical opinion and findings to support the diagnosis in the progress notes & carry it through into your discharge summary. THIS DOCUMENT IS MAINTAINED A PERMANENT PART OF THE MEDICAL RECORD. documented in this encounter Plan of Treatment Upcoming Encounters Date Type Department Care Team (Late st Contact Info) Description 12/05/2024 1:00 PM CDT Office Visit [facility] - Neurology [address] [place] [address], Formerly [facility] [address] Sean Raymundo DO [address] [place] [address] [place] [address] documented as of this encounter Procedures Procedure Name Priority Date/Time Associated Diagnosis Comments IR PERC GJ TUBE REPLACEMENT Routine 08/06/2024 3:07 PM CDT PEG (percutaneous endoscopic gastrostomy) status (HCC) CT ABDOMEN WO CONTRAST Routine 11:00 AM CDT Nausea without vomiting PEG (percutaneous endoscopic gastrostomy) status (HCC) GLUCOSE - POINT OF CARE Routine 08/06/2024 6:45 AM CDT XR ABDOMEN KUB PORTABLE STAT 08/05/2024 6:14 AM CDT Nausea and vomiting, unspecified vomiting type GLUCOSE - POINT OF CARE Routine 08/05/2024 1:43 AM ANIMAL CARE ATTENDANT PT-INR [facility] Routine 08/05/2024 1:02 AM ANIMAL CARE ATTENDANT Nausea without vomiting CBC W/O DIFFERENTIAL Routine 08/05/2024 1:02 AM ANIMAL CARE ATTENDANT Nausea without vomiting RENAL FUNCTION PANEL Routine 08/05/2024 1:02 AM ANIMAL CARE ATTENDANT Nausea without vomiting MAGNESIUM BLOOD Routine 08/05/2024 1:02 AM ANIMAL CARE ATTENDANT Nausea without vomiting PT-INR [facility] Routine 08/04/2024 12:12 PM ANIMAL CARE ATTENDANT Nausea without vomiting PSA FREE + TOTAL PANEL AM Draw 12:12 PM ANIMAL CARE ATTENDANT Acute cystitis without hematuria CBC W/O DIFFERENTIAL Routine 08/04/2024 12:12 PM ANIMAL CARE ATTENDANT Nausea without vomiting RENAL FUNCTION PANEL Routine 08/04/2024 12:12 PM ANIMAL CARE ATTENDANT Nausea without vomiting MAGNESIUM BLOOD Routine 08/04/2024 12:12 PM ANIMAL CARE ATTENDANT Nausea without vomiting CULTURE URINE STAT 08/03/2024 8:53 AM ANIMAL CARE ATTENDANT Acute cystitis without hematuria PT-INR [facility] STAT 08/03/2024 5:18 AM ANIMAL CARE ATTENDANT Nausea without vomiting HEMOGLOBIN A1C RINKU 08/03/2024 5:18 AM ANIMAL CARE ATTENDANT Nausea without vomiting CBC W/O DIFFERENTIAL STAT 08/03/2024 5:18 AM ANIMAL CARE ATTENDANT Nausea without vomiting RENAL FUNCTION PANEL STAT 08/03/2024 5:18 AM ANIMAL CARE ATTENDANT Nausea without vomiting MAGNESIUM BLOOD STAT 08/03/2024 5:18 AM ANIMAL CARE ATTENDANT Nausea without vomiting TYPE + SCREEN PANEL STAT 08/02/2024 9 :53 PM ANIMAL CARE ATTENDANT CT CHEST ABDOMEN PELVIS W CONT STAT 08/02/2024 9:42 PM ANIMAL CARE ATTENDANT Nausea without vomiting XR CHEST 1VW PORTABLE STAT 08/02/2024 5:15 PM ANIMAL CARE ATTENDANT Nausea without vomiting PT-INR [facility] STAT 08/02/2024 5:08 PM ANIMAL CARE ATTENDANT URINALYSIS REFLEX TO MICROSCOPIC NO CULTURE STAT 08/02/2024 5:08 PM ANIMAL CARE ATTENDANT CBC W AUTO DIFFERENTIAL STAT 08/02/2024 5:08 PM ANIMAL CARE ATTENDANT COMPREHENSIVE METABOLIC PANEL STAT 08/02/2024 5:08 PM ANIMAL CARE ATTENDANT LIPASE BLOOD STAT 08/02/2024 5:08 PM ANIMAL CARE ATTENDANT XR CHEST 1VW PORTABLE Routine 07/27/2024 12:39 PM ANIMAL CARE ATTENDANT Nausea and vomiting, unspecified vomiting type documented in this encounter Results * IR Perc GJ Tube Replacement (08/06/2024 3:07 PM CDT) Anatomical Region Laterality Modality Abdomen X-Ray Angiograph y 08/06/2024 3:22 PM CDT Impressions 08/06/2024 3:35 PM CDT Impression: Successful exchange of the existing 18 [place] gastrojejunostomy catheter for a new 18 [place] gastrojejunostomy catheter under fluoroscopic guidance, as described [...] and call the IR service. I, Dr. Payton, was present and performed/supervised the entire procedure. > Interpreting Provider: Krystal Payton on 08/06/2024 3:35 PM Narrative 08/06/2024 3:35 PM CDT PROCEDURE: IR PERC GJ TUBE REPLACEMENT DATE/TIME OF EXAM: 08/06/2024 3:07 PM CLINICAL INFORMATION: None relevant/not provided if blank. 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 Patient now presents with concern for dislodgment of the GJ tube. Vascular interventional radiology service has been consulted for further evaluation and possible exchange. Operators: 1.Dr. Krystal Payton M.D., Attending Physician Anesthesia: 1.Local anesthesia with lidocaine jelly Procedure: Exchange of the existing 18 [place] gastrojejunostomy catheter for a new 18 [place] gastrojejunostomy catheter under fluoroscopic guidance. Start time: 1435 End time: 1451 Fluoroscopic time: 4.0 minutes Contrast: 10 mL of Isovue-300 Procedure in detail: The procedure, risks, and possible complications were explained to the patient in detail, and informed consent was obtained. The patient was placed supine on the procedure table. A prop sawyer film of abdomen was obtained, which showed the existing gastrostomy jejunostomy catheter with the tip now coiled in the gastric lumen. Additionally, the tube had been retracted with the balloon integrity compromised and located external to the patient currently. On attempt at injecting contrast through the existing catheter, this appeared to be clogged. Therefore the catheter was cut and a 0.035 inch stiff Glidewire was advanced into the gastric lumen and the existing catheter was removed over the wire. A 4 [place] Kumpe catheter was advanced over the wire and using this combination, was advanced into the jejunum. The Kumpe catheter was then removed over the wire. A new 18 [place] gastrojejunostomy catheter was then advanced over the guidewire under fluoroscopic guidance. The catheter was secured [...] associated with the procedure. Procedure Note Krystal Payton MD - 08/06/2024 PROCEDURE: IR PERC GJ TUBE REPLACEMENT DATE/TIME OF EXAM: 08/06/2024 3:07 PM CLINICAL INFORMATION: None relevant/not provided if blank. Indication: Z93.1: PEG (percutaneous endoscopic gastrostomy) status(HCC) History: 64-year-old male with past history of traumatic brain injurywith seizures and dysphagia managed by gastrojejunostomy tube placement.Patient now presents with concern for dislodgment of the GJ tube. Vascular interventional radiology service has been consulted for furtherevaluation and possible exchange. Operators: 1.Dr. Krystal Payton M.D., Attending Physician Anesthesia: 1.Local anesthesia with lidocaine jelly Procedure: Exchange of the existing 18 [place] gastrojejunostomy catheter for a new 18 [place] gastrojejunostomy catheter under fluoroscopicguidance. Start time: 1435 End time: 1451 Fluoroscopic time: 4.0 minutes Contrast: 10 mL of Isovue-300 Procedure in detail: The procedure, risks, and possible complications were explained to the patient in detail, and informed consent was obtained. The patient was placed supine on the procedure table. A prop sawyer film of abdomen wasobtained, which showed the existing gastrostomy jejunostomy catheter with the tipnow coiled in the gastric lumen. Additionally, the tube had been retractedwith the balloon integrity compromised and located external to the patient currently. On attempt at injecting contrast through the existing catheter, this appeared to be clogged. Therefore the catheter was cut and a 0.035 inch stiff Glidewire was advanced into the gastric lumen and the existing catheter was removed over the wire. A 4 [place] Kumpe catheter wasadvanced over the wire and using this combination, was advanced into the jejunum. The Kumpe catheter was then removed over the wire. A new 18 [place] gastrojejunostomy catheter was then advanced over the guidewire under fluoroscopic guidance. The catheter was secured by balloon insufflation. Hand injection of contrast through the gastric port confirmedintraluminal position within the stomach. Hand injection of contrast through thejejunal port confirmed intraluminal position within the jejunum. Steriledressing was applied. The patient tolerated the procedure well [facility]. There were no immediate complicationsassociated with the procedure. Impression: Successful exchange of the existing 18 Frenchgastrojejunostomy catheter for a new 18 [place] gastrojejunostomy catheter underfluoroscopic guidance, as described above. [...] feedingand call the IR service. I, Dr. Payton, was present and performed/supervised the entireprocedure. > Interpreting Provider: Krystal Payton on 08/06/2024 3:35 PM Gaurav eLroy PA-C IR ORDERABLES * CT Abdomen Wo Contrast (08/06/2024 11:00 AM CDT) Anatomical Region Laterality Modality Abdomen Computed Tomogra phy 08/06/2024 11:3 9 AM CDT Impressions 08/06/2024 1:31 PM CDT Impression: 1.Appropriately positioned PEG tube with tip in the gastric body. 2.No acute process identified in the abdomen or pelvis. 3.A few small nonobstructing stones in both kidneys. > Dictated by Yessica Lovell MD, MD (radiology specialist). IBebo MD have personally reviewed and interpreted this examination/study. > Interpreting Provider: Bebo Kuo MD on 08/06/2024 1:31 PM Narrative 08/06/2024 1:31 PM CDT PROCEDURE: CT ABDOMEN WO CONTRAST, DATE/TIME OF EXAM: 08/06/2024 11:01 AM, LOCATION [facility] INDICATION: R11.0: Nausea without vomiting Z93.1: PEG (percutaneous endoscopic gastrostomy) status (HCC) ADDITIONAL CLINICAL INFORMATION: Ordering Provider Reason For Exam: PEG placement Technologist Note: Additional: COMPARISON: CT abdomen pelvis 07/16/2024. TECHNIQUE: CT of the abdomen and pelvis was performed without contrast according to standard protocol. Findings: Evaluation of visceral and vascular structures is degraded due to lack of intravenous contrast administration. Lower Chest: Mild bilateral dependent atelectasis is present in the visualized lung bases. Coronary artery calcifications. Liver: Within the limitations of a noncontrast examination, the liver is unremarkable. Calcified granuloma in segment 6. Gallbladder and Bile Ducts: A gallstone is seen. No wall thickening or pericholecystic fluid. Spleen: Normal. Pancreas: Normal. Adrenals: Normal. Kidneys: Bilateral subcentimeter nonobstructing stones are visualized. Gastrointestinal: Small hiatal hernia. Colonic diverticulosis without evidence of diverticulitis is seen. Contrast visualized within the large bowel. The appendix is not seen; however, no inflammatory changes are seen in the right lower quadrant. PEG tube is visualized entering in the left anterior abdominal wall with tip terminating in the gastric body. Mesentery/Peritoneum/Retroperitoneum: Normal. Vasculature: Atherosclerotic calcification of the aorta and its branch vessels. Bones: Bone windows demonstrate no suspicious lytic or blastic lesions. The visible osseous structures are intact. Degenerative changes are seen in the spine. Soft tissues: Normal. Procedure Note Bebo Kuo MD - 08/06/2024 PROCEDURE: CT ABDOMEN WO CONTRAST, DATE/TIME OF EXAM: 08/06/2024 11:01AM, LOCATION [facility] INDICATION: R11.0: Nausea without vomiting Z93.1: PEG (percutaneous endoscopic gastrostomy) status (HCC) ADDITIONAL CLINICAL INFORMATION: Ordering Provider Reason For Exam: PEG placement Technologist Note: Additional: COMPARISON: CT abdomen pelvis 07/16/2024. TECHNIQUE: CT of the abdomen and pelvis was performed without contrast according to standard protocol. Findings: Evaluation of visceral and vascular structures is degraded due to lackof intravenous contrast administration. Lower Chest: Mild bilateral dependent atelectasis is present in the visualized lung bases. Coronary artery calcifications. Liver: Within the limitations of a noncontrast examination, the liver is unremarkable. Calcified granuloma in segment 6. Gallbladder and Bile Ducts: A gallstone is seen. No wall thickening or pericholecystic fluid. Spleen: Normal. Pancreas: Normal. Adrenals: Normal. Kidneys: Bilateral subcentimeter nonobstructing stones are visualized. Gastrointestinal: Small hiatal hernia. Colonic diverticulosis without evidence of diverticulitis is seen. Contrast visualized within the large bowel. The appendix is not seen; however, no inflammatory changes are seen in the right lower quadrant. PEG tube is visualized entering in the leftanterior abdominal wall with tip terminating in the gastric body. Mesentery/Peritoneum/Retroperitoneum: Normal. Vasculature: Atherosclerotic calcification of the aorta and its branch vessels. Bones: Bone windows demonstrate no suspicious lytic or blastic lesions. The visible osseous structures are intact. Degenerative changes are seen inthe spine. Soft tissues: Normal. Impression: 1.Appropriately positioned PEG tube with tip in the gastric body. 2.No acute process identified in the abdomen or pelvis. 3.A few small nonobstructing stones in both kidneys. > Dictated by Yessica Lovell MD, MD (radiology specialist). I, Bebo Kuo MD have personally reviewed and interpreted this examination/study. > Interpreting Provider: Bebo Kuo MD on 51:31 PM Yary James MD CT ORDERABLES * GLUCOSE - POINT OF CARE (08/06/2024 6:45 AM CDT) Glucose WB/POC 92 70 - 99 mg/dL 08/06/2024 6:46 AM CDT [facility] Specimen Type Cap Fingerstick 2024 6:46 AM CDT [facility] Blood BLOOD SPECIMEN / Unknown 08/06/2024 6:45 AM CDT 08/06/2024 6:46 AM CDT Yary James MD LAB - POINT OF CARE ORDERABLES [facility] [address] [place] [id number], [facility] [phone] * XR Abdomen Kub Portable (08/05/2024 6:14 AM CDT) Anatomical Region Laterality Modality Abdomen Digital Radiogra phy 08/05/2024 9:25 AM CDT Impressions 08/05/2024 5:10 PM CDT IMPRESSION: No radiographic evidence of acute intra-abdominal process. Report dictated by Sierra Lyman Dr, MD (radiology specialist). Ramon Thomason MD have personally reviewed and interpreted this examination/study. > Interpreting Provider: Ramon Ross MD on 08/05/2024 5:10 PM Narrative 08/05/2024 5:10 PM CDT PROCEDURE: XR ABDOMEN KUB PORTABLE, DATE/TIME OF EXAM: 08/05/2024 6:14 AM, LOCATION [facility] INDICATION: R11.2: Nausea and vomiting, unspecified vomiting type ADDITIONAL CLINICAL INFORMATION: Ordering Provider Reason For Exam: abd distension. Technologist Note: Additional: COMPARISON: CT chest abdomen pelvis dated 08/02/2024 FINDINGS: Gastrostomy tube is present in the left upper quadrant Single view of the abdomen demonstrates a nonspecific bowel gas pattern with no evidence of obstruction. No mass effect or pathologic calcifications. No acute osseous abnormalities. Procedure Note Ramon Ross MD - 08/05/2024 PROCEDURE: XR ABDOMEN KUB PORTABLE, DATE/TIME OF EXAM: 08/05/2024 6:14AM, LOCATION [facility] INDICATION: R11.2: Nausea and vomiting, unspecified vomiting type ADDITIONAL CLINICAL INFORMATION: Ordering Provider Reason For Exam: abd distension. Technologist Note: Additional: COMPARISON: CT chest abdomen pelvis dated 08/02/2024 FINDINGS: Gastrostomy tube is present in the left upper quadrant Single view of the abdomen demonstrates a nonspecific bowel gas pattern with no evidence of obstruction. No mass effect or pathologic calcifications. No acute osseous abnormalities. IMPRESSION: No radiographic evidence of acute intra-abdominal process. Report dictated by Sierra Lyman Dr, MD (radiology specialist). Rmaon Thomason MD have personally reviewed and interpreted this examination/study. > Interpreting Provider: Ramon Ross MD on 08/05/2024 5:10 PM Neha Palomino MD DIAGNOSTIC IMAGING O RDERABLES * (ABNORMAL) GLUCOSE - POINT OF CARE (08/05/2024 1:43 AM ANIMAL CARE ATTENDANT) Glucose WB/POC 102(H) 70 - 99 mg/dL 08/05/2024 5:14 AM CDT [facility] Specimen Type Cap Fingerstick 2024 5:14 AM [facility] Blood BLOOD SPECIMEN / Unknown 08/05/2024 1:43 AM ANIMAL CARE ATTENDANT 08/05/2024 5:14 AM [facility] Yary James MD LAB - POINT OF CARE ORDERABLES [facility] [address] [place] [address], [facility] [phone] * (ABNORMAL) CBC W/O DIFFERENTIAL (08/05/2024 1:02 AM ANIMAL CARE ATTENDANT) WBC 6.3 4.0 - 10.7 x10E9/L 08/05/2024 3:57 AM [facility] RBC Count 4.08(L) 4.30 - 5.80 x10E12/L 08/05/2024 3:57 AM [facility] Hemoglobin 12.8(L) 13.3 - 17.5 g/dL 08/05/2024 3:57 AM [facility] Hematocrit 38.5(L) 38.7 - 51.1 % 08/05/2024 3:57 AM [facility] MCV 94.4 80.0 - 98.0 fL 08/05/2024 3:57 AM [facility] MCH 31.4 26.7 - 33.6 pg 08/05/2024 3:57 AM [facility] MCHC 33.2 31.7 - 36.3 g/dL 08/05/2024 3:57 AM [facility] [facility] RDW-CV 13.2 11.3 - 14.8 % 08/05/2024 3:57 AM [facility] Platelet Count 187 150 - 420 x10E9/L 08/05/2024 3:57 AM [facility] MPV 13.2(H) 7.8 - 11.4 fL 08/05/2024 3:57 AM [facility] Blood BLOOD SPECIMEN / Unknown Lab Venipuncture / Unknown 08/05/2024 1:02 AM ANIMAL CARE ATTENDANT 08/05/2024 3:37 AM CDT Marianne Daniels MD LAB - HEMATOLOGY ORD ERABLES [address] [address], [place] [phone] * PT-INR [facility] (08/05/2024 1:02 AM ANIMAL CARE ATTENDANT) PT 13.8 12.1 - 14.8 Seconds 08/05/2024 3:57 AM CDT [facility] INR 1.1 See Comment 08/05/2024 3:57 AM T [facility] Comment:The suggested therap eutic range for standard coumadin (warfarin) therapy is an INR of 2.0-3.0. For high-risk patients (Mechanical Mitral Valve Prosthesis, etc.), the suggested prophylactic therapeutic range is an INR of 2.5-3.5. Blood BLOOD SPECIMEN / Unknown Lab Venipuncture / Unknown 08/05/2024 1:02 AM ANIMAL CARE ATTENDANT 08/05/2024 3:37 AM CDT Lowell Cao DO LAB - COAGULATION OR DERABLES [address] [address], [place] [phone] * MAGNESIUM BLOOD (08/05/2024 1:02 AM ANIMAL CARE ATTENDANT) Pathologist [facility] Magnesium 1.9 1.6 - 2.6 mg/dL 08/05/2024 4:02 AM CDT [facility] Blood BLOOD SPECIMEN / Unknown Lab Venipuncture / Unknown 08/05/2024 1:02 AM ANIMAL CARE ATTENDANT 08/05/2024 3:37 AM CDT Lowell Cao DO LAB - CHEMISTRY ORDE RABLES [address] [address], [place] [phone] * (ABNORMAL) RENAL FUNCTION PANEL (08/05/2024 1:02 AM ANIMAL CARE ATTENDANT) BUN 16 7 - 26 mg/dL 08/05/2024 4:02 AM [facility] Creatinine 0.63(L) 0.71 - 1.16 mg/dL 08/05/2024 4:02 AM [facility] Sodium 140 136 - 145 mmol/L 08/05/2024 4:02 AM [facility] Potassium 4.0 3.5 - 4.5 mmol/L 08/05/2024 4:02 AM [facility] Chloride 107 98 - 107 mmol/L 08/05/2024 4:02 AM [facility] CO2 24 22 - 29 mmol/L 08/05/2024 4:02 AM [facility] Glucose 79 70 - 99 mg/dL 08/05/2024 4:02 AM [facility] Albumin 3.3(L) 3.4 - 5.0 g/dL 08/05/2024 4:02 AM [facility] Calcium 8.9 8.4 - 10.2 mg/dL 08/05/2024 4:02 AM [facility] Phosphorus 3.6 2.8 - 5.1 mg/dL 08/05/2024 4:02 AM [facility] Anion Gap 9 6 - 16 08/05/2024 4:02 AM [facility] BUN/Creatinine Ratio 25(H) 7 - 23 08/05/2024 4:02 AM [facility] Osmolality Calculated 290 275 - 295 mOsm/kg 08/05/2024 4:02 AM [facility] eGFR by CKD-EPI >90 >=90 mL/min/1.7 3 m2 08/05/2024 4:02 AM [facility] Blood BLOOD SPECIMEN / Unknown Lab Venipuncture / Unknown 08/05/2024 1:02 AM ANIMAL CARE ATTENDANT 08/05/2024 3:37 AM [facility] Lowell Cao DO LAB - CHEMISTRY MARSHAL MEDEROS [facility] [address] [place] [address], [facility] [phone] * (ABNORMAL) CBC W/O DIFFERENTIAL (08/04/2024 12:12 PM ANIMAL CARE ATTENDANT) WBC 6.7 4.0 - 10.7 x10E9/L 08/04/2024 12:46 PM [facility] RBC Count 3.99(L) 4.30 - 5.80 x10E12/L 08/04/2024 12:46 PM [facility] Hemoglobin 12.8(L) 13.3 - 17.5 g/dL 08/04/2024 12:46 PM [facility] Hematocrit 38.0(L) 38.7 - 51.1 % 08/04/2024 12:46 PM [facility] MCV 95.2 80.0 - 98.0 fL 08/04/2024 12:46 PM [facility] MCH 32.1 26.7 - 33.6 pg 08/04/2024 12:46 PM [facility] MCHC 33.7 31.7 - 36.3 g/dL 08/04/2024 12:46 PM [facility] RDW-CV 13.1 11.3 - 14.8 % 08/04/2024 12:46 PM [facility] Platelet Count 201 150 - 420 x10E9/L 08/04/2024 12:46 PM [facility] MPV 12.9(H) 7.8 - 11.4 fL 08/04/2024 12:46 PM [facility] Blood BLOOD SPECIMEN / Unknown Lab Venipuncture / Unknown 08/04/2024 12:12 PM ANIMAL CARE ATTENDANT 08/04/2024 12:42 PM ANIMAL CARE ATTENDANT Marianne Daniels MD LAB - HEMATOLOGY ORD ERABLES [facility] [address] [place] [address], [facility] [phone] * PT-INR [facility] (08/04/2024 12:12 PM ANIMAL CARE ATTENDANT) PT 13.9 12.1 - 14.8 Seconds 08/04/2024 1:03 PM ANIMAL CARE ATTENDANT [facility] INR 1.1 See Comment 08/04/2024 1:03 PM [facility] Comment:The suggested therap eutic range for standard coumadin (warfarin) therapy is an INR of 2.0-3.0. For high-risk patients (Mechanical Mitral Valve Prosthesis, etc.), the suggested prophylactic therapeutic range is an INR of 2.5-3.5. Blood BLOOD SPECIMEN / Unknown Lab Venipuncture / Unknown 08/04/2024 12:12 PM ANIMAL CARE ATTENDANT 08/04/2024 12:42 PM ANIMAL CARE ATTENDANT Lowell Cao DO LAB - COAGULATION OR DERABLES [address] [address], [facility] [phone] * MAGNESIUM BLOOD (08/04/2024 12:12 PM ANIMAL CARE ATTENDANT) Magnesium 1.9 1.6 - 2.6 mg/dL 08/04/2024 1:07 PM [facility] Blood BLOOD SPECIMEN / Unknown Lab Venipuncture / Unknown 08/04/2024 12:12 PM ANIMAL CARE ATTENDANT 08/04/2024 12:42 PM ANIMAL CARE ATTENDANT Lowell Cao DO LAB - CHEMISTRY ORDE RABLES [address] [address], [place] [phone] * (ABNORMAL) RENAL FUNCTION PANEL (08/04/2024 12:12 PM ANIMAL CARE ATTENDANT) BUN 16 7 - 26 mg/dL 08/04/2024 1:07 PM [facility] Creatinine 0.61(L) 0.71 - 1.16 mg/dL 08/04/2024 1:07 PM [facility] Sodium 140 136 - 145 mmol/L 08/04/2024 1:07 PM [facility] Potassium 4.0 3.5 - 4.5 mmol/L 08/04/2024 1:07 PM [facility] Chloride 107 98 - 107 mmol/L 08/04/2024 1:07 PM [facility] CO2 23 22 - 29 mmol/L 08/04/2024 1:07 PM [facility] Glucose 107(H) 70 - 99 mg/dL 08/04/2024 1:07 PM [facility] Albumin 3.5 3.4 - 5.0 g/dL 08/04/2024 1:07 PM [facility] Calcium 9.2 8.4 - 10.2 mg/dL 08/04/2024 1:07 PM [facility] Phosphorus 3.8 2.8 - 5.1 mg/dL 08/04/2024 1:07 PM [facility] Anion Gap 10 6 - 16 08/04/2024 1:07 PM [facility] BUN/Creatinine Ratio 26(H) 7 - 23 08/04/2024 1:07 PM [facility] Osmolality Calculated 292 275 - 295 mOsm/kg 08/04/2024 1:07 PM [facility] eGFR by CKD-EPI >90 >=90 mL/min/1.7 3 m2 08/04/2024 1:07 PM [facility] Blood BLOOD SPECIMEN / Unknown Lab Venipuncture / Unknown 08/04/2024 12:12 PM [facility] 08/04/2024 12:42 PM [facility] Lowell Cao DO LAB - CHEMISTRY LUCIE GATITO [facility] [address] [place] [address], [facility] [phone] * PSA FREE + TOTAL PANEL (08/04/2024 12:12 PM [facility]) PSA Total 1.7 0.0 - 4.0 ng/mL 08/04/2024 1:33 PM [facility] PSA Free 0.21 0.00 - 0.50 ng/mL 08/04/2024 1:33 PM [facility] PSA % Free 12 See Comment % 08/04/2024 1:33 PM [facility] Comment: [facility] uses the [employer] Program Support Specialist method for Total and Free PSA measurements. Measurements obtained with different assay methods should not be used interchangeably. Patients with normal Digital Rectal Exam (JAZMINE) results and Total PSA results of 4.0 - 10.0 ng/mL represent a diagnostic garber zone. The decision of whether or not to perform a biopsy should not be based on the value of Free and/or Total PSA alone. Distribution of PIANO BUILDER % Free PSA Values for specimens with PIANO BUILDER Total PSA values between 4.0 and 10.0 ng/mL: % Free PSA Ranges <10.0 10.0-15.0 15.0-20.0 20.0-26.0 >26.0 Number of ----- --------- --------- --------- ----- Subjects Biopsy --------- ------ Negative 307 9.4 22.5 25.4 24.8 17.9 Positive 123 27.6 30.9 17.9 15.4 8.1 PSA % Free 08/04/2024 1:33 PM ANIMAL CARE ATTENDANT [facility] Blood BLOOD SPECIMEN / Unknown Lab Venipuncture / Unknown 08/04/2024 12:12 PM ANIMAL CARE ATTENDANT 08/04/2024 12:42 PM ANIMAL CARE ATTENDANT Marianne Daniels MD LAB - CHEMISTRY MARSHAL MEDEROS [facility] Organization Address City/State/[facility] Co de Phone Number [address] [address], [facility] [phone] * (ABNORMAL) CULTURE URINE (08/03/2024 8:53 AM ANIMAL CARE ATTENDANT) Culture Urine 50,000-100,000 CFU/mL Pseudomonas aeruginosa(A) JELLY 08/07/2024 6:04 AM [facility] Comment:This is an appended report. These results have been appended to a previously final verified report. Culture Urine 50,000-100,000 CFU/mL Corynebacterium striatum(A) JELLY 08/07/2024 6:04 AM [facility] Comment:This is an appended report. These results have been appended to a previously final verified report. Culture Urine 50,000-100,000 CFU/mL Providencia stuartii(A) JELLY 08/07/2024 6:[address] [facility] Urine URINE SPECIMEN OBTAINED BY CLEAN CATCH PROCEDURE / Unknown Collection / Unknown 08/03/2024 8:53 AM ANIMAL CARE ATTENDANT 08/03/2024 8:56 AM ANIMAL CARE ATTENDANT Narrative Organism Antibiotic Method Susceptibility Pseudomonas aeruginosa Amikacin JELLY <=2 ug/mL: Susceptible Pseudomonas aeruginosa Cefepime JELLY <=1 ug/mL: Susceptible Pseudomonas aeruginosa Ceftazidime JELLY <=1 ug/mL: Susceptible Pseudomonas aeruginosa Ciprofloxacin JELLY <=0.25 ug/mL: Susceptible Pseudomonas aeruginosa Gentamicin JELLY Resistant Pseudomonas aeruginosa Meropenem JELLY 1 ug/mL: Susceptible Pseudomonas aeruginosa Piperacillin-tazobactam JELLY 8 ug/mL: Susceptible Pseudomonas aeruginosa Tobramycin JELLY <=1 ug/mL: Susceptible Providencia stuartii Amikacin JELLY <=2 ug/mL: Susceptible Providencia stuartii Ampicillin-sulbactam JELLY 4 ug/mL: Susceptible Providencia stuartii Cefepime JELLY <=1 ug/mL: Susceptible Providencia stuartii Ceftriaxone JELLY <=1 ug/mL: Susceptible Providencia stuartii Ciprofloxacin JELLY <=0.25 ug/mL: Susceptible Providencia stuartii Meropenem JELLY <=0.25 ug/mL: Susceptible Providencia stuartii Piperacillin-tazobactam JELLY <=4 ug/mL: Susceptible Providencia stuartii Trimethoprim-sulfam ethoxazo le JELLY <=20 ug/mL: Susceptible Marianne Daniels MD LAB - MICROBIOLOGY O RDERABLES [facility] [address] [place] [address], [facility] [phone] * (ABNORMAL) CBC W/O DIFFERENTIAL (08/03/2024 5:18 AM ANIMAL CARE ATTENDANT) [facility] WBC 9.0 4.0 - 10.7 x10E9/L 08/03/2024 5:36 AM [facility] RBC Count 4.23(L) 4.30 - 5.80 x10E12/L 08/03/2024 5:36 AM [facility] Hemoglobin 13.6 13.3 - 17.5 g/dL 08/03/2024 5:36 AM [facility] Hematocrit 40.1 38.7 - 51.1 % 08/03/2024 5:36 AM [facility] MCV 94.8 80.0 - 98.0 fL 08/03/2024 5:36 AM [facility] MCH 32.2 26.7 - 33.6 pg 08/03/2024 5:36 AM [facility] MCHC 33.9 31.7 - 36.3 g/dL 08/03/2024 5:36 AM [facility] RDW-CV 13.2 11.3 - 14.8 % 08/03/2024 5:36 AM [facility] Platelet Count 240 150 - 420 x10E9/L 08/03/2024 5:36 AM [facility] MPV 12.4(H) 7.8 - 11.4 fL 08/03/2024 5:36 AM [facility] Blood BLOOD SPECIMEN / Unknown Venipuncture / Unknown 08/03/2024 5:18 AM [facility] 08/03/2024 5:23 AM [facility] Lowell Cao DO LAB - HEMATOLOGY ORD ERABLES [facility] [address] [place] [address], [facility] [phone] * PT-INR [facility] (08/03/2024 5:18 AM [facility]) PT 14.2 12.1 - 14.8 Seconds 08/03/2024 6:56 AM [facility] INR 1.1 See Comment 08/03/2024 6:56 AM [facility] Comment:The suggested therap eutic range for standard coumadin (warfarin) therapy is an INR of 2.0-3.0. For high-risk patients (Mechanical Mitral Valve Prosthesis, etc.), the suggested prophylactic therapeutic range is an INR of 2.5-3.5. Blood BLOOD SPECIMEN / Unknown Venipuncture / Unknown 08/03/2024 5:18 AM ANIMAL CARE ATTENDANT 08/03/2024 5:20 AM ANIMAL CARE ATTENDANT Lowell Cao DO LAB - COAGULATION OR DERABLES [facility] [address] [place] [phone], [facility] [phone] * MAGNESIUM BLOOD (08/03/2024 5:18 AM ANIMAL CARE ATTENDANT) Magnesium 1.9 1.6 - 2.6 mg/dL 08/03/2024 5:56 AM [facility] Blood BLOOD SPECIMEN / Unknown Venipuncture / Unknown 08/03/2024 5:18 AM ANIMAL CARE ATTENDANT 08/03/2024 5:24 AM ANIMAL CARE ATTENDANT Lowell Cao DO LAB - CHEMISTRY ORDE RABLES Performing Organization Address City/[facility]/ZIP Co de Phone Number [address] [address], [facility] [phone] * (ABNORMAL) RENAL FUNCTION PANEL (08/03/2024 5:18 AM ANIMAL CARE ATTENDANT) BUN 14 7 - 26 mg/dL 08/03/2024 5:56 AM [facility] Creatinine 0.65(L) 0.71 - 1.16 mg/dL 08/03/2024 5:56 AM [facility] Sodium 140 136 - 145 mmol/L 08/03/2024 5:56 AM [facility] Potassium 4.4 3.5 - 4.5 mmol/L 08/03/2024 5:56 AM [facility] Chloride 107 98 - 107 mmol/L 08/03/2024 5:56 AM [facility] CO2 25 22 - 29 mmol/L 08/03/2024 5:56 AM [facility] Glucose 98 70 - 99 mg/dL 08/03/2024 5:56 AM [facility] Albumin 3.7 3.4 - 5.0 g/dL 08/03/2024 5:56 AM [facility] Calcium 9.8 8.4 - 10.2 mg/dL 08/03/2024 5:56 AM [facility] Phosphorus 3.7 2.8 - 5.1 mg/dL 08/03/2024 5:56 AM [facility] Anion Gap 8 6 - 16 08/03/2024 5:56 AM [facility] BUN/Creatinine Ratio 22 7 - 23 08/03/2024 5:56 AM [facility] Osmolality Calculated 290 275 - 295 mOsm/kg 08/03/2024 5:56 AM [facility] eGFR by CKD-EPI >90 >=90 mL/min/1.7 3 m2 08/03/2024 5:56 AM [facility] Blood BLOOD SPECIMEN / Unknown Venipuncture / Unknown 08/03/2024 5:18 AM ANIMAL CARE ATTENDANT 08/03/2024 5:24 AM [facility] Lowell Cao DO LAB - CHEMISTRY LUCIE GATITO [facility] [address] [place] [phone], [facility] [phone] * HEMOGLOBIN A1C (08/03/2024 5:18 AM [facility]) Hemoglobin A1c 5.3 <=5.6 % 08/03/2024 8:24 AM [facility] Estimated Average Glucose 105 mg/dL 08/03/2024 8:24 AM [facility] Comment: HbA1c Interpretation: Normal : < 5.7% Pre-diabetes: 5.7-6.4% Diabetes: Equal to or greater than 6.5% Test results diagnostic of diabetes should be repeated for confirmation. Treatment target values recommended by ADA and other clinical organizations should be used to evaluate metabolic control in patients. Reference: [place] [employer], Standards of Care in Diabetes -2020 In patients 70 years and older consider HbA1c target range of 7.0-7.5% (Reference: Lukas Matamoros et al. JAMDA. 2012) The Sebia assay for the measurement of HbA1c is a National Glycohemoglobin Standardization Program (NGSP) certified method. Blood BLOOD SPECIMEN / Unknown Venipuncture / Unknown 08/03/2024 5:18 AM ANIMAL CARE ATTENDANT 08/03/2024 5:24 AM ANIMAL CARE ATTENDANT Lowell Cao DO LAB - CHEMISTRY LUCIByron GATITO [facility] [address] [place] [address], [place] [phone] * TYPE + SCREEN PANEL (08/02/2024 9:53 PM ANIMAL CARE ATTENDANT) Antibody Screen NEG 10:41 PM ANIMAL CARE ATTENDANT [facility] ABO Rh O POS 08/02/2024 10:41 PM ANIMAL CARE ATTENDANT [facility] Blood Bank BLOOD SPECIMEN / Unknown Venipuncture / Unknown 08/02/2024 9:53 PM ANIMAL CARE ATTENDANT 08/02/2024 10:05 PM ANIMAL CARE ATTENDANT Elmo Johnson MD LAB - BLOOD BANK ORD ERABLES Performing Organization Address City/[facility]/ZIP Co de Phone Number [facility] [address] [place] [address], [place] [phone] * CT Chest Abdomen Pelvis W Cont (08/02/2024 9:42 PM ANIMAL CARE ATTENDANT) Anatomical Region Laterality Modality Chest, Abdomen, Pelvis Computed Tomography 08/02/2024 9:56 PM ANIMAL CARE ATTENDANT Impressions 08/02/2024 11:19 PM ANIMAL CARE ATTENDANT Impression: 1.Trace left-sided pleural effusion, bilateral dependent and subsegmental atelectasis, likely from retained secretions. 2.Coronary artery atherosclerotic disease. Findings indicating age indeterminate left ventricular myocardial infarction. 3.Small hiatal hernia and mild diffuse mural thickening of the esophagus suggesting reflux esophagitis. 4.Punctate nonobstructing kidney stone in the upper pole of the left kidney. 5.Enhancing liver lesion better characterized on prior study and likely representing flash filling hemangiomas. 6.1.6 cm enhancing nodule in the right aspect of the prostate gland, correlate with PSA. 7.Diffuse bladder wall thickening could be secondary to bladder outlet obstruction and associated cystitis. > Dictated by Justin Burrell MD (radiology specialist). I, Bebo Kuo MD have personally reviewed and interpreted this examination/study. > Interpreting Provider: Bebo Kuo MD on 08/02/2024 11:19 PM Narrative 08/02/2024 11:19 PM ANIMAL CARE ATTENDANT PROCEDURE: CT CHEST ABDOMEN PELVIS W CONT, DATE/TIME OF EXAM: 08/02/2024 9:43 PM, LOCATION [facility] INDICATION: R11.0: Nausea without vomiting ADDITIONAL CLINICAL INFORMATION: Ordering Provider Reason For Exam: persistent dark emesis and abd pain with trach COMPARISON: The chest, abdomen and pelvis dated 07/28/2024 TECHNIQUE: CT of the chest, abdomen, and pelvis was performed after the uneventful administration of 100 mL of Isovue 370 intravenous contrast according to standard protocol. Findings: Chest: Tracheostomy tube terminates in mid trachea. Lower Neck and Axillae: Normal. Lungs: Trace left-sided pleural effusion. There are bilateral dependent and subsegmental atelectasis.. No suspicious pulmonary nodules are identified. No pleural fluid or pneumothorax is present. Heart and Pericardium: The cardiac chambers are normal in size. No pericardial fluid or thickening is present. Coronary artery atherosclerotic disease. There are findings suggestive of sequelae of age indeterminate left ventricular myocardial infarction. Mediastinum and Almita: No mediastinal hemorrhage is present. No enlarged lymph nodes are present. Thoracic Vasculature: No vascular abnormality is present. Abdomen/pelvis: Liver: The liver is diffusely hypoattenuating, consistent with diffuse hepatic steatosis. Redemonstrated enhancing liver lesion in the right hemiliver measuring up to 1.3 cm pulmonary series 3, image 73). Previously reported other enhancing liver lesions are not well visualized in this study due to timing of the study. Gallbladder and Bile Ducts: Normal. Spleen: 2 subcentimeter hypodense lesion in superior aspect of the spleen, likely cyst. Pancreas: Normal. Adrenals: Normal. Kidneys: Punctate nonobstructing kidney stone in the upper pole of the left kidney. No hydronephrosis. Gastrointestinal: Small hiatal hernia. Mild diffuse concentric mural thickening of the esophagus is noted suggesting reflux esophagitis. A percutaneous gastrojejunostomy tube terminates in proximal jejunum. The visualized stomach, small and large bowel loops are within normal limits. No evidence of bowel obstruction. Mesentery/Peritoneum/Retroperitoneum: No free intraperitoneal air. No free fluid in the abdomen or pelvis. Bladder: The bladder wall is diffusely thickened, likely due to decompressed state versus cystitis. Reproductive Organs: Prostate is visualized. Redemonstrated 1.6 cm enhancing nodule in the right side of the prostate. Abdominal Vasculature: No vascular abnormality is present. Bones: 1 cm sclerotic lesion in the right superior pubic ramus, unchanged The visible osseous structures are intact. Degenerative changes are seen in the spine. Redemonstrated chronic deformity of the superior L3 endplate as well as mid body of the sternum. Soft tissues: Gynecomastia. Procedure Note Bebo Kuo MD - 08/02/2024 PROCEDURE: CT CHEST ABDOMEN PELVIS W CONT, DATE/TIME OF EXAM: 08/02/2024 9:43 PM, LOCATION [facility] INDICATION: R11.0: Nausea without vomiting ADDITIONAL CLINICAL INFORMATION: Ordering Provider Reason For Exam: persistent dark emesis and abd pain with trach COMPARISON: The chest, abdomen and pelvis dated 07/28/2024 TECHNIQUE: CT of the chest, abdomen, and pelvis was performed after the uneventful administration of 100 mL of Isovue 370 intravenous contrast according to standard protocol. Findings: Chest: Tracheostomy tube terminates in mid trachea. Lower Neck and Axillae: Normal. Lungs: Trace left-sided pleural effusion. There are bilateral dependent and subsegmental atelectasis.. No suspicious pulmonary nodules areidentified. No pleural fluid or pneumothorax is present. Heart and Pericardium: The cardiac chambers are normal in size. No pericardial fluid orthickening is present. Coronary artery atherosclerotic disease. There are findings suggestive of sequelae of age indeterminate left ventricular myocardial infarction. Mediastinum and Almita: No mediastinal hemorrhage is present. No enlarged lymph nodes arepresent. Thoracic Vasculature: No vascular abnormality is present. Abdomen/pelvis: Liver: The liver is diffusely hypoattenuating, consistent with diffuse hepatic steatosis. Redemonstrated enhancing liver lesion in the right hemiliver measuringup to 1.3 cm pulmonary series 3, image 73). Previously reported other enhancing liver lesions are not well visualized in this study due totiming of the study. Gallbladder and Bile Ducts: Normal. Spleen: 2 subcentimeter hypodense lesion in superior aspect of the spleen,likely cyst. Pancreas: Normal. Adrenals: Normal. Kidneys: Punctate nonobstructing kidney stone in the upper pole of the leftkidney. No hydronephrosis. Gastrointestinal: Small hiatal hernia. Mild diffuse concentric mural thickening of the esophagus is noted suggesting reflux esophagitis. A percutaneous gastrojejunostomy tube terminates in proximal jejunum.The visualized stomach, small and large bowel loops are within normallimits. No evidence of bowel obstruction. Mesentery/Peritoneum/Retroperitoneum: No free intraperitoneal air. No free fluid in the abdomen or pelvis. Bladder: The bladder wall is diffusely thickened, likely due to decompressedstate versus cystitis. Reproductive Organs: Prostate is visualized. Redemonstrated 1.6 cm enhancing nodule in theright side of the prostate. Abdominal Vasculature: No vascular abnormality is present. Bones: 1 cm sclerotic lesion in the right superior pubic ramus, unchanged The visible osseous structures are intact. Degenerative changes are seen inthe spine. Redemonstrated chronic deformity of the superior L3 endplate as well asmid body of the sternum. Soft tissues: Gynecomastia. Impression: 1.Trace left-sided pleural effusion, bilateral dependent andsubsegmental atelectasis, likely from retained secretions. 2.Coronary artery atherosclerotic disease. Findings indicating age indeterminate left ventricular myocardial infarction. 3.Small hiatal hernia and mild diffuse mural thickening of the esophagus suggesting reflux esophagitis. 4.Punctate nonobstructing kidney stone in the upper pole of the left kidney. 5.Enhancing liver lesion better characterized on prior study and likely representing flash filling hemangiomas. 6.1.6 cm enhancing nodule in the right aspect of the prostate gland, correlate with PSA. 7.Diffuse bladder wall thickening could be secondary to bladder outlet obstruction and associated cystitis. > Dictated by Justin Burrell MD (radiology specialist). I, Bebo Kuo MD have personally reviewed and interpreted this examination/study. > Interpreting Provider: Bebo Kuo MD on 511:19 PM Elmo Johnson MD CT ORDERABLES * XR CHEST 1VW PORTABLE (08/02/2024 5:15 PM ANIMAL CARE ATTENDANT) Anatomical Region Laterality Modality Chest Digital Radiogra phy 08/02/2024 5:27 PM ANIMAL CARE ATTENDANT Narrative 08/03/2024 9:31 AM ANIMAL CARE ATTENDANT PROCEDURE: XR CHEST 1VW PORTABLE, DATE/TIME OF EXAM: 08/02/2024 5:15 PM, LOCATION [facility] INDICATION: R11.0: Nausea without vomiting ADDITIONAL CLINICAL INFORMATION: Ordering Provider Reason For Exam: emesis Technologist Note: Additional: COMPARISON: None. FINDINGS/IMPRESSION: Tracheostomy tube is present. Mild bibasilar atelectasis. Left retrocardiac opacification could represent atelectasis or aspiration seen on previous CT chest. Trace left pleural effusion. No right pleural effusion, or pneumothorax. The cardiomediastinal silhouette is normal. No acute osseous abnormality. > Dictated by Meeta Leblanc MD (radiology specialist) Ramon Thomason MD have personally reviewed and interpreted this examination/study. > Interpreting Provider: Ramon Ross MD on 08/03/2024 9:31 AM Procedure Note Ramon Ross MD - 08/03/2024 PROCEDURE: XR CHEST 1VW PORTABLE, DATE/TIME OF EXAM: 08/02/2024 5:15 PM, LOCATION [facility] INDICATION: R11.0: Nausea without vomiting ADDITIONAL CLINICAL INFORMATION: Ordering Provider Reason For Exam: emesis Technologist Note: Additional: COMPARISON: None. FINDINGS/IMPRESSION: Tracheostomy tube is present. Mild bibasilar atelectasis. Left retrocardiac opacification couldrepresent atelectasis or aspiration seen on previous CT chest. Trace left pleural effusion. No right pleural effusion, or pneumothorax. The cardiomediastinal silhouette is normal. No acute osseousabnormality. > Dictated by Meeta Leblanc MD (radiology specialist) Ramon Thomason MD have personally reviewed and interpreted this examination/study. > Interpreting Provider: Ramon Ross MD on 08/03/2024 9:31 AM Elmo Johnson MD DIAGNOSTIC IMAGING O RDERABLES * (ABNORMAL) URINALYSIS REFLEX TO MICROSCOPIC NO CULTURE (08/02/2024 5:08 PM ANIMAL CARE ATTENDANT) Color UA Yellow Yellow, Straw 08/02/2024 5:46 PM ANIMAL CARE ATTENDANT [facility] Clarity UA Turbid(A) Clear 08/02/2024 5:46 PM [facility] Glucose UA Normal Normal 08/02/2024 5:46 PM [facility] Bilirubin UA Negative Negative 08/02/2024 5:46 PM [facility] Ketone UA Negative Negative 08/02/2024 5:46 PM [facility] Specific [place] UA 1.015 1.005 - 1.030 08/02/2024 5:46 PM [facility] Blood UA Negative Negative 08/02/2024 5:46 PM [facility] pH UA 7.0 5.0 - 9.0 pH 08/02/2024 5:46 PM [facility] Protein UA Trace(A) Negative 08/02/2024 5:46 PM [facility] Urobilinogen UA 3.0(A) Normal mg/dL 08/02/2024 5:46 PM [facility] Nitrite UA Positive(A) Negative 08/02/2024 5:46 PM [facility] Leukocyte UA 500 NOEL/uL(A) Negative 08/02/2024 5:46 PM [facility] RBC UA 11-20(A) 0 - 5 # /hpf 08/02/2024 5:46 PM [facility] WBC UA >100(A) 0 - 5 # /hpf 08/02/2024 5:46 PM [facility] Bacteria UA 1+(A) None Seen 08/02/2024 5:46 PM [facility] Squamous Epithelial Cells None Seen 0 - 5 /hpf 08/02/2024 5:46 PM [facility] Urine URINE SPECIMEN OBTAINED BY SINGLE CATHETERIZATION OF URINARY BLADDER / Unknown Collection / Unknown 08/02/2024 5:08 PM ANIMAL CARE ATTENDANT 08/02/2024 5:11 PM ANIMAL CARE ATTENDANT Elmo Johnson MD LAB - URINALYSIS ORD ERABLES [address] [address], [facility] [phone] * PT-INR [facility] (08/02/2024 5:08 PM ANIMAL CARE ATTENDANT) PT 12.9 12.1 - 14.8 Seconds 08/02/2024 5:39 PM [facility] INR 1.0 See Comment 08/02/2024 5:39 PM [facility] Comment:The suggested therap eutic range for standard coumadin (warfarin) therapy is an INR of 2.0-3.0. For high-risk patients (Mechanical Mitral Valve Prosthesis, etc.), the suggested prophylactic therapeutic range is an INR of 2.5-3.5. Blood BLOOD SPECIMEN / Unknown Venipuncture / Unknown 08/02/2024 5:08 PM ANIMAL CARE ATTENDANT 08/02/2024 5:11 PM ANIMAL CARE ATTENDANT Elmo Johnson MD LAB - COAGULATION OR DERABLES [facility] [address] [place] [address], [facility] [phone] * (ABNORMAL) COMPREHENSIVE METABOLIC PANEL (08/02/2024 5:08 PM ANIMAL CARE ATTENDANT) BUN 14 7 - 26 mg/dL 08/02/2024 5:44 PM [facility] Creatinine 0.57(L) 0.71 - 1.16 mg/dL 08/02/2024 5:44 PM [facility] Sodium 140 136 - 145 mmol/L 08/02/2024 5:44 PM [facility] Potassium 4.5 3.5 - 4.5 mmol/L 08/02/2024 5:44 PM [facility] Chloride 105 98 - 107 mmol/L 08/02/2024 5:44 PM [facility] CO2 25 22 - 29 mmol/L 08/02/2024 5:44 PM [facility] Glucose 102(H) 70 - 99 mg/dL 08/02/2024 5:44 PM [facility] Calcium 9.6 8.4 - 10.2 mg/dL 08/02/2024 5:44 PM [facility] Protein Total 7.6 6.0 - 8.3 g/dL 08/02/2024 5:44 PM [facility] Albumin 3.8 3.4 - 5.0 g/dL 08/02/2024 5:44 PM [facility] Bilirubin Total 0.4 0.2 - 1.2 mg/dL 08/02/2024 5:44 PM [facility] Alkaline Phosphatase 94 40 - 150 U/L 08/02/2024 5:44 PM [facility] ALT 14 5 - 55 U/L 08/02/2024 5:44 PM [facility] AST 25 5 - 34 U/L 08/02/2024 5:44 PM [facility] Anion Gap 10 6 - 16 08/02/2024 5:44 PM [facility] BUN/Creatinine Ratio 25(H) 7 - 23 08/02/2024 5:44 PM [facility] Osmolality Calculated 291 275 - 295 mOsm/kg 08/02/2024 5:44 PM [facility] Albumin/Globulin Ratio 1.0(L) 1.1 - 2.3 08/02/2024 5:44 PM [facility] eGFR by CKD-EPI >90 >=90 mL/min/1.7 3 m2 08/02/2024 5:44 PM [facility] Blood BLOOD SPECIMEN / Unknown Venipuncture / Unknown 08/02/2024 5:08 PM ANIMAL CARE ATTENDANT 08/02/2024 5:14 PM ANIMAL CARE ATTENDANT Elmo Johnson MD LAB - CHEMISTRY [facility] Performing Organization Address City/[facility]/ZIP Co de Phone Number [address] [address], [facility] [phone] * LIPASE BLOOD (08/02/2024 5:08 PM ANIMAL CARE ATTENDANT) Lipase 18 8 - 78 U/L 08/02/2024 5:44 PM [facility] Blood BLOOD SPECIMEN / Unknown Venipuncture / Unknown 08/02/2024 5:08 PM ANIMAL CARE ATTENDANT 08/02/2024 5:14 PM ANIMAL CARE ATTENDANT Narrative [facility] - 08/02/2024 5:44 PM ANIMAL CARE ATTENDANT Lipase results from the [employer] Alinity analyzer may not be comparable with other methodologies. Elmo Johnson MD LAB - CHEMISTRY [facility] [address] [place] [address], [facility] [phone] * (ABNORMAL) CBC W AUTO DIFFERENTIAL (08/02/2024 5:08 PM [facility]) [facility] WBC 8.4 4.0 - 10.7 x10E9/L 08/02/2024 5:22 PM [facility] RBC Count 4.27(L) 4.30 - 5.80 x10E12/L 08/02/2024 5:22 PM [facility] Hemoglobin 13.6 13.3 - 17.5 g/dL 08/02/2024 5:22 PM [facility] Hematocrit 41.1 38.7 - 51.1 % 08/02/2024 5:22 PM [facility] MCV 96.3 80.0 - 98.0 fL 08/02/2024 5:22 PM [facility] MCH 31.9 26.7 - 33.6 pg 08/02/2024 5:22 PM [facility] MCHC 33.1 31.7 - 36.3 g/dL 08/02/2024 5:22 PM [facility] RDW-CV 13.2 11.3 - 14.8 % 08/02/2024 5:22 PM [facility] Platelet Count 250 150 - 420 x10E9/L 08/02/2024 5:22 PM [facility] MPV 13.0(H) 7.8 - 11.4 fL 08/02/2024 5:22 PM [facility] Neutrophil % 68.1 41.0 - 74.0 % 08/02/2024 5:22 PM [facility] Lymphocyte % 22.2 17.0 - 47.0 % 08/02/2024 5:22 PM [facility] Monocyte % 6.8 3.0 - 11.0 % 08/02/2024 5:22 PM [facility] Eosinophil % 2.3 0.0 - 7.0 % 08/02/2024 5:22 PM [facility] Basophil % 0.4 0.0 - 1.6 % 08/02/2024 5:22 PM [facility] Immature Granulocytes % 0.2 0.0 - 1.0 % 08/02/2024 5:22 PM [facility] Neutrophil Absolute 5.70 1.60 - 7.50 x10E9/L 08/02/2024 5:22 PM [facility] Lymphocyte Absolute 1.86 1.00 - 4.40 x10E9/L 08/02/2024 5:22 PM [facility] Monocyte Absolute 0.57 0.15 - 1.00 x10E9/L 08/02/2024 5:22 PM [facility] Eosinophil Absolute 0.19 0.00 - 0.60 x10E9/L 08/02/2024 5:22 PM [facility] Basophil Absolute 0.03 0.00 - 0.13 x10E9/L 08/02/2024 5:22 PM [facility] Blood BLOOD SPECIMEN / Unknown Venipuncture / Unknown 08/02/2024 5:08 PM ANIMAL CARE ATTENDANT 08/02/2024 5:14 PM ANIMAL CARE ATTENDANT Elmo Johnson MD LAB - HEMATOLOGY ORD ERABLES [facility] [address] [place] [address], [facility] [phone] * XR Chest 1Vw Portable (07/27/2024 12:39 PM ANIMAL CARE ATTENDANT) Anatomical Region Laterality Modality Chest Digital Radiogra phy 08/08/2024 1:13 PM CDT Narrative 08/08/2024 1:16 PM CDT PROCEDURE: XR CHEST 1VW PORTABLE, DATE/TIME OF EXAM: 08/08/2024 12:39 PM, LOCATION [facility] INDICATION: R11.2: Nausea and vomiting, unspecified vomiting type ADDITIONAL CLINICAL INFORMATION: Ordering Provider Reason For Exam: na Technologist Note: Additional: COMPARISON: 07/16/2024. FINDINGS/IMPRESSION: Tracheostomy tube ends in the midtrachea. Bilateral mid lung and left basilar subsegmental atelectases versus left retrocardiac airspace disease. There is no pleural effusion, or pneumothorax. The cardiomediastinal silhouette is normal. Right lateral clavicular deformity is likely due to remote injury. This study was interpreted and reported by Daniel Taylor MD (attending radiologist) 08/08/2024 1:13 PM. > Interpreting Provider: Dainel Taylor MD on 08/08/2024 1:16 PM Procedure Note Daniel Taylor MD - 08/08/2024 PROCEDURE: XR CHEST 1VW PORTABLE, DATE/TIME OF EXAM: 08/08/2024 12:39PM, LOCATION [facility] INDICATION: R11.2: Nausea and vomiting, unspecified vomiting type ADDITIONAL CLINICAL INFORMATION: Ordering Provider Reason For Exam: na Technologist Note: Additional: COMPARISON: 07/16/2024. FINDINGS/IMPRESSION: Tracheostomy tube ends in the midtrachea. Bilateral mid lung and left basilar subsegmental atelectases versus left retrocardiac airspace disease. There is no pleural effusion, or pneumothorax. The cardiomediastinal silhouette is normal. Right lateral clavicular deformity is likely due to remote injury. This study was interpreted and reported by Daniel Taylor MD (attending radiologist) 08/08/2024 1:13 PM. > Interpreting Provider: Daniel Taylor MD on 08/08/2024 1:16 PM Quan Gan MD DIAGNOSTIC IMAGING O RDERABLES documented in this encounter Visit Diagnoses Diagnosis Acute cystitis without hematuria- Primary Acute cystitis Nausea without vomiting Acute cystitis without hematuria Acute cystitis Generalized abdominal pain Abdominal pain, generalized Nausea and vomiting, unspecified vomiting type PEG (percutaneous endoscopic gastrostomy) status (HCC) Moderate protein-calorie malnutrition (HCC) Malnutrition of moderate degree Tracheostomy dependent (HCC) Tracheostomy status PEG tube malfunction (HCC) Mechanical complication of gastrostomy Generalized abdominal pain Abdominal pain, generalized Nausea without vomiting PEG tube malfunction (HCC) Mechanical complication of gastrostomy Epilepsy, unspecified, not intractable, without status epilepticus (HCC) Dementia, vascular (HCC) Vascular dementia, uncomplicated Cerebrovascular accident (HCC) Unspecified cerebral artery occlusion with cerebral infarction PEG (percutaneous endoscopic gastrostomy) status (HCC) Tracheostomy dependent (HCC) Tracheostomy status Dysphagia due to old cerebrovascular accident Acute metabolic encephalopathy Moderate protein-calorie malnutrition (HCC) Malnutrition of moderate degree documented in this encounter Administered Medications Inactive Administered Medications - up to 3 most recent administrations Medication Order MAR Action Action Date Dose Rate Site 0.9% NaCl infusion Intravenous, CONTINUOUS PRN, Starting on Tue08/06/24 at 1415, Until Tue08/06/24 at 1415, Intra-op $ New Bag/Syringe 08/06/2024 2:15 PM CDT 250 mL 0.9% NaCl injection 1-10 mL 1-10 mL, Intracatheter, PRN, Other, peripheral line flush, Starting on Tue08/02/24 at 1644, Until Tue08/08/24 at 2153, Flush peripheral IV catheter with 1-10 mL of normal saline before and after medications and prn to clear blood from the line or to verify patency. $ Given 08/05/2024 8:50 PM CDT 10 mL $ Given 08/05/2024 3:32 AM CDT 10 mL 0.9% NaCl injection 3 mL 3 mL, Intracatheter, EVERY 8 HOURS, First dose on Tue08/02/24 at 1715, Until Discontinued, Flush peripheral IV catheter with 3 mL of normal saline every 8 hours. $ Given 08/07/2024 1:58 PM CDT 3 mL $ Given 08/07/2024 5:38 AM CDT 3 mL $ Given 08/06/2024 8:37 PM CDT 3 mL atorvastatin (Lipitor) tablet 40 mg 40 mg, Enteral Tube, AT BEDTIME, First dose on Tue08/03/24 at 2100, Until Discontinued $ Given 08/08/2024 8:06 PM CDT 40 mg G Tub e $ Given 08/07/2024 9:00 PM CDT 40 mg G Tube $ Given 08/04/2024 9:33 PM ANIMAL CARE ATTENDANT 40 mg G Tube bisacodyl (Dulcolax) suppository 10 mg 10 mg, Rectal, 2 TIMES DAILY, First dose on Tue08/05/24 at 1015, Until Discontinued $ Given 08/08/2024 9:29 AM CDT 10 mg $ Given 08/05/2024 8:51 PM CDT 10 mg $ Given 08/05/2024 9:39 AM CDT 10 mg cefTRIAXone (Rocephin) syringe 2,000 mg 2,000 mg (2 g), Intravenous, EVERY 24 HOURS, First dose on Tue08/02/24 at 1830, Until Discontinued, Infuse over 3-5 minutes. Mix with 19.2 mL diluent for final concentration 2000 mg/20 mL., Indication for anti-infective therapy: Suspected infection, Site of anti-infective therapy: Urine/Genitourinary $ Given 08/04/2024 5:18 PM ANIMAL CARE ATTENDANT 2,000 mg $ Given 08/03/2024 6:18 PM ANIMAL CARE ATTENDANT 2,000 mg $ Given 08/02/2024 6:19 PM ANIMAL CARE ATTENDANT 2,000 mg cloBAZam (Onfi) tablet 10 mg 10 mg, Enteral Tube, 2 TIMES DAILY, First dose on Tue08/03/24 at 0900, Until Discontinued $ Given 08/08/2024 8:06 PM CDT 10 mg G Tub e $ Given 08/08/2024 9:30 AM CDT 10 mg G Tube $ Given 08/07/2024 9:00 PM CDT 10 mg G Tube dextrose 5 % and lactated ringers infusion at 75 mL/hr, Intravenous, CONTINUOUS, Starting on Tue08/05/24 at 1015, Until Tue08/08/24 at 2153 $ New Bag/Syringe 08/07/2024 3:42 PM CDT 75 mL/hr $ New Bag/Syringe 08/05/2024 12:15 PM CDT 75 mL /hr dextrose IV 12.5 g 12.5 g, Intravenous, PRN, Other, Bedside Glucose less than 70 mg/dL -If NOT able to eat and/or NPO and with IV Access, Starting on Tue08/03/24 at 0302, Until Tue08/08/24 at 215, If NOT able to eat and/or NPO [...] NPO and with IV Access, Starting on Tue08/03/24 at 0302, Until Tue08/08/24 at 215, If NOT able to eat and/or NPO [...] IV STAT NOTIFY PROVIDER OF HYPOGLYCEMIC EVENT. folic acid (Folvite) tablet 1 mg 1 mg, Enteral Tube, DAILY, First dose on Tue08/03/24 at 0900, Until Discontinued $ Given 08/08/2024 9:30 AM CDT 1 mg G Tube $ Given 08/04/2024 8:26 AM ANIMAL CARE ATTENDANT 1 mg G Tube $ Given 08/03/2024 8:37 AM ANIMAL CARE ATTENDANT 1 mg J Tube glucagon (Glucagen) injection 1 mg 1 mg, Subcutaneous, PRN, Bedside Glucose less than 70 mg/dL - If NOT able to eat and/or NPO and withOUT IV Access, Starting on Tue08/03/24 at 0302, Until Tue08/08/24 at 215, If NOT able to eat and/or NPO [...] Glucose less than 70 mg/dL, Starting on Tue08/03/24 at 0302, Until Tue08/08/24 at 2153, If able to take oral medications: For [...] for choices) NOTIFY PROVIDER OF HYPOGLYCEMIC EVENT. glycopyrrolate (Robinul) tablet 1 mg 1 mg, Enteral Tube, 2 TIMES DAILY, First dose on Tue08/03/24 at 0900, Until Discontinued $ Given 08/08/2024 8:06 PM CDT 1 mg G Tub e $ Given 08/08/2024 9:30 AM CDT 1 mg G Tube $ Given 08/07/2024 9:00 PM CDT 1 mg G Tube guaiFENesin (Robitussin) solution 15 mL 15 mL, Enteral Tube, EVERY 6 HOURS (03,09,15,21), First dose on Tue08/03/24 at 0330, Until Discontinued $ Given 08/08/2024 8:06 PM CDT 15 mL G Tube $ Given 08/08/2024 3:44 PM CDT 15 mL G Tube $ Given 08/08/2024 9:31 AM CDT 15 mL G Tube heparinized saline 2 units/mL infusion Other, CONTINUOUS PRN, Starting on Tue08/06/24 at 1430, Until Tue08/06/24 at 1430, Intra-op $ New Bag/Syringe 08/06/2024 2:30 PM CDT 500 mL hydrALAZINE (Apresoline) injection 10 mg 10 mg, Intravenous, EVERY 4 HOURS PRN, SBP greater than 150 mmHg, Starting on 08/04/24 at 1653, Until 08/08/24 at 2153 iopamidol (Isovue 300) 61 % contrast ONCE PRN, Starting on 08/06/24 at 1457, Until Tue08/06/24 at 1457, Intra-op $ Given 08/06/2024 2:57 PM CDT 10 mL iopamidol (Isovue 370) 76 % contrast Intravenous, CONTRAST ONCE, Starting on Marian 08/02/24 at 2128, Until 08/04/24 at 2127 $ Given - Contrast 08/02/2024 9:31 PM ANIMAL CARE ATTENDANT 100 mL lacosamide (Vimpat) injection 200 mg 200 mg, Intravenous, 2 TIMES DAILY, First dose on Tue08/05/24 at 0945, Until Discontinued $ Given 08/07/2024 10:19 AM CDT 200 mg $ Given 08/06/2024 8:37 PM CDT 200 mg $ Given 08/06/2024 11:30 AM CDT 200 mg lacosamide (Vimpat) oral solution 200 mg 200 mg, Per G Tube, 2 TIMES DAILY, First dose on Tue08/03/24 at 0900, Until Discontinued $ Given 08/04/2024 9:35 PM ANIMAL CARE ATTENDANT 200 mg $ Given 08/04/2024 8:27 AM ANIMAL CARE ATTENDANT 200 mg $ Given 08/03/2024 8:49 AM ANIMAL CARE ATTENDANT 200 mg lacosamide (Vimpat) oral solution 200 mg 200 mg, Enteral Tube, 2 TIMES DAILY, First dose on Tue08/07/24 at 2100, Until Discontinued $ Given 08/08/2024 8:06 PM CDT 200 mg G Tube $ Given 08/08/2024 9:31 AM CDT 200 mg G Tube $ Given 08/07/2024 9:01 PM CDT 200 mg G Tube levETIRAcetam (Keppra) 1,750 mg in 0.9% NaCl IV 267.5 mL IVPB 1,750 mg, at 535 mL/hr, Intravenous, EVERY 12 HOURS, First dose (after last modification) on Tue08/06/24 at 2100, Until Discontinued $ New Bag/Syringe 08/07/2024 12:39 PM CDT 1,750 mg 535 mL/hr $ New Bag/Syringe 08/06/2024 10:55 PM CDT 1,750 mg 535 m L/hr levETIRAcetam (Keppra) 3,000 mg in 0.9% NaCl IV 280 mL IVPB 3,000 mg, at 560 mL/hr, Intravenous, NOW, 1 dose, On Tue08/02/24 at 2115 $ New Bag/Syringe 08/02/2024 9:59 PM ANIMAL CARE ATTENDANT 3,000 mg 560 mL/hr levETIRAcetam (Keppra) injection 1,000 mg 1,000 mg, Intravenous, EVERY 12 HOURS, First dose on Tue08/05/24 at 0900, Until Discontinued, Administer straight drug (undiluted) over two minutes $ Given 08/06/2024 9:26 AM CDT 1,000 mg $ Given 08/05/2024 8:51 PM CDT 1,000 mg $ Given 08/05/2024 9:39 AM CDT 1,000 mg levETIRAcetam (Keppra) oral solution 1,750 mg 1,750 mg, Enteral Tube, 2 TIMES DAILY, First dose on Tue08/03/24 at 0900, Until Discontinued $ Given 08/04/2024 9:35 PM ANIMAL CARE ATTENDANT 1,750 mg G Tube $ Given 08/04/2024 8:30 AM ANIMAL CARE ATTENDANT 1,750 mg G Tube $ Given 08/03/2024 8:36 AM ANIMAL CARE ATTENDANT 1,750 mg J Tube levETIRAcetam (Keppra) tablet 1,750 mg 1,750 mg, Enteral Tube, 2 TIMES DAILY, First dose on Tue08/07/24 at 2100, Until Discontinued, Do not crush or chew because of TASTE only. $ Given 08/08/2024 8:06 PM CDT 1,750 m g G Tube $ Given 08/08/2024 9:31 AM CDT 1,750 mg G Tube $ Given 08/07/2024 8:59 PM CDT 1,750 mg G Tube lidocaine (Urojet) 2 % jelly Urethral, ONCE PRN, Starting on Tue08/06/24 at 1435, Until Tue08/06/24 at 1435, Intra-op $ Given 08/06/2024 2:35 PM CDT 10 mL metoprolol (Lopressor) injection 5 mg 5 mg, Intravenous, EVERY 8 HOURS, First dose on Tue08/05/24 at 1400, Until Discontinued $ Given 08/07/2024 5:38 AM CDT 5 mg $ Given 08/06/2024 8:37 PM CDT 5 mg $ Given 08/06/2024 5:30 AM CDT 5 mg metoprolol tartrate IR (Lopressor) tablet 25 mg 25 mg, Enteral Tube, 2 TIMES DAILY, First dose on Tue08/03/24 at 0900, Until Discontinued $ Given 08/08/2024 8:05 PM CDT 25 mg G Tub e $ Given 08/08/2024 9:31 AM CDT 25 mg G Tube $ Given 08/07/2024 9:00 PM CDT 25 mg G Tube morphine injection 1 mg 1 mg, Intravenous, EVERY 4 HOURS PRN, Moderate Pain, Starting on 08/05/24 at 0948, Until 08/08/24 at 2153, Patient preference for lesser PRN pain meds [...] patient cannot tolerate oral intake $ Given 08/05/2024 11:08 PM CDT 1 mg $ Given 08/05/2024 4:22 PM CDT 1 mg $ Given 08/05/2024 11:02 AM CDT 1 mg ondansetron (Zofran) injection 4 mg 4 mg, Intravenous, EVERY 6 HOURS PRN, Nausea/Vomiting, Starting on 08/04/24 at 0836, Until Tue08/08/24 at 2153, Administer over 2 to 5 minutes. oxyCODONE (Roxicodone) oral solution 2.5 mg 2.5 mg, Enteral Tube, EVERY 4 HOURS PRN, Mild Pain, Starting on 08/04/24 at 0836, Until Tue08/08/24 at 2153, Patient preference for lesser PRN pain meds [...] patient cannot tolerate oral intake $ Given 08/07/2024 8:59 PM CDT 2.5 mg G Tub e $ Given 08/07/2024 1:58 PM CDT 2.5 mg G Tube $ Given 08/05/2024 3:33 AM CDT 2.5 mg G Tube pantoprazole (Protonix) injection 40 mg 40 mg, Intravenous, NOW, 1 dose, On Tue08/02/24 at 1700, For every 40 mg of pantoprazole mix with 10 mL Normal Saline (final concentration = 4 mg/mL). Inject SLOWLY over 2 min. $ Given 08/02/2024 6:19 PM ANIMAL CARE ATTENDANT 40 mg pantoprazole (Protonix) injection 40 mg 40 mg, Intravenous, 2 TIMES DAILY, First dose on Tue08/03/24 at 0900, Until Discontinued, For every 40 mg of pantoprazole mix with 10 mL Normal Saline (final concentration = 4 mg/mL). Inject SLOWLY over 2 min. $ Given 08/06/2024 9:26 AM CDT 40 mg $ Given 08/05/2024 8:51 PM CDT 40 mg $ Given 08/05/2024 8:50 AM CDT 40 mg pantoprazole (Protonix) injection 40 mg 40 mg, Intravenous, DAILY, First dose (after last modification) on Tue08/07/24 at 0900, Until Discontinued, For every 40 mg of pantoprazole mix with 10 mL Normal Saline (final concentration = 4 mg/mL). Inject SLOWLY over 2 min. $ Given 08/07/2024 9:08 AM CDT 40 mg piperacillin - tazobactam (Zosyn) 4.5 g in 0.9% NaCl IV 110 mL IVPB 4.5 g, at 220 mL/hr, Intravenous, ONCE, 1 dose, On Tue08/05/24 at 0845, Infuse only initial dose of piperacillin-tazobactam over 30 min. Subsequent doses start 6 hours after initial dose and infused over 4 hours., Indication for anti-infective therapy: Documented infection, Site of anti-infective therapy: Urine/Genitourinary $ New Bag/Syringe 08/05/2024 9:44 AM CDT 4.5 g 220 mL/hr piperacillin - tazobactam (Zosyn) 4.5 g in 0.9% NaCl IV 110 mL IVPB 4.5 g, at 27.5 mL/hr, Intravenous, EVERY 8 HOURS, First dose on Tue08/05/24 at 1445, Until Discontinued, Indication for anti-infective therapy: Documented infection, Site of anti-infective therapy: Urine/Genitourinary $ New Bag/Syringe 08/07/2024 9:15 AM CDT 4.5 g 27.5 mL/hr $ New Bag/Syringe 08/07/2024 1:17 AM CDT 4.5 g 27.5 m L/hr $ New Bag/Syringe 08/06/2024 5:54 PM CDT 4.5 g 27.5 m L/hr polyethylene glycol 3350 (Miralax) packet 17 g 17 g, Per G Tube, DAILY, First dose on Tue08/03/24 at 0900, Until Discontinued, Mix in 8 ounces of water, juice, soda, coffee or tea prior to administration $ Given 08/08/2024 9:32 AM CDT 17 g $ Given 08/03/2024 8:38 AM ANIMAL CARE ATTENDANT 17 g senna (Senokot) tablet 8.6 mg 8.6 mg, Enteral Tube, DAILY, First dose on Tue08/03/24 at 0900, Until Discontinued $ Given 08/08/2024 9:32 AM CDT 8.6 mg G Tub e $ Given 08/03/2024 8:37 AM ANIMAL CARE ATTENDANT 8.6 mg J Tube thiamine (Vitamin B-1) tablet 100 mg 100 mg, Enteral Tube, DAILY, First dose on Tue08/03/24 at 0900, Until Discontinued $ Given 08/08/2024 9:32 AM CDT 100 mg G Tub e $ Given 08/04/2024 8:26 AM ANIMAL CARE ATTENDANT 100 mg G Tube $ Given 08/03/2024 8:37 AM ANIMAL CARE ATTENDANT 100 mg J Tube valproate (Depacon) 500 mg in 0.9% NaCl IV 55 mL IVPB 500 mg, at 55 mL/hr, Intravenous, EVERY 12 HOURS, First dose on Tue08/05/24 at 1015, Until Discontinued $ New Bag/Syringe 08/06/2024 11:34 AM CDT 500 mg 55 mL/hr $ New Bag/Syringe 08/05/2024 9:11 PM CDT 500 mg 55 mL/ hr $ New Bag/Syringe 08/05/2024 11:04 AM CDT 500 mg 55 mL /hr valproate (Depacon) 500 mg in 0.9% NaCl IV 55 mL IVPB 500 mg, at 55 mL/hr, Intravenous, EVERY 8 HOURS, First dose (after last modification) on Tue08/06/24 at 2000, Until Discontinued $ New Bag/Syringe 08/07/2024 5:37 AM CDT 500 mg 55 mL/hr $ New Bag/Syringe 08/07/2024 12:05 AM CDT 500 mg 55 mL /hr valproic acid (Depakene) solution 500 mg 500 mg, Per G Tube, EVERY 8 HOURS, First dose on Tue08/03/24 at 0600, Until Discontinued $ Given 08/08/2024 8:06 PM CDT 500 mg $ Given 08/08/2024 1:27 PM CDT 500 mg $ Given 08/08/2024 4:23 AM CDT 500 mg documented in this encounter Active and Recently Administered Medications Times are shown in CDT. Scheduled Medication Order 08/06/2024 08/07/2024 08/08/2024 0.9% NaCl injection 3 mL(Linked Group 1) 3 mL, Intracatheter, EVERY 8 HOURS, First dose on Marian 08/02/24 at 1715, Until Discontinued, Flush peripheral IV catheter with 3 mL of normal saline every 8 hours. 0530 ($ Given - Provider: Fern Ornelas RN)1750 ($ Given - Provider: Shakila Orellana RN)2037 ($ Given - Provider: Fern Ornelas, RN) 0538 ($ Given - Provider: Fern Ornelas, ALFRED)1358 ($ Given - Provider: Charles Rosenberg RN)2057 (Not Administered - Provider: Fern Ornelas RN - Reason: Loss of Access) 0600 (Held - Provider: Fern Ornelas RN - Reason: Loss of Access)1326 (Not Administered - Provider: Zulma Ashraf RN - Reason: Other - Comment: No IV)2003 (Not Administered - Provider: Fern Ornelas RN - Reason: Loss of Access) atorvastatin (Lipitor) tablet 40 mg 40 mg, Enteral Tube, AT BEDTIME, First dose on Tue08/03/24 at 2100, Until Discontinued 2100 (Dose Held - Provider: Yary James MD) 1348 (Unheld by Provider - Provider: Reina Rivera MD)2100 ($ Given - Provider: Fern Ornelas RN) 2005 ($ Given - Provider: Fern Ornelas RN) bisacodyl (Dulcolax) suppository 10 mg 10 mg, Rectal, 2 TIMES DAILY, First dose on Tue08/05/24 at 1015, Until Discontinued 957 (Not Administered - Provider: Shakila Orellana RN - Reason: Patient Condition - Comment: having diarrhea)2036 (Not Administered - Provider: Fern Ornelas RN - Reason: Other - Comment: lbm) 0916 (Not Administered - Provider: Charles Rosenberg RN - Reason: Refused-Patient)2038 (Not Administered - Provider: Fern Ornelas RN - Reason: Other - Comment: lbm) 0929 ($ Given - Provider: Zulma Ashraf, ALFRED)2006 (Not Administered - Provider: Fern Ornelas RN - Reason: Other - Comment: for transport) cloBAZam (Onfi) tablet 10 mg 10 mg, Enteral Tube, 2 TIMES DAILY, First dose on Tue08/03/24 at 0900, Until Discontinued 899 (Dose Held - Provider: Yary James MD)2099 (Dose Held - Provider: Yary James MD) 09 (Dose Held - Provider: Yary James MD)1348 (Unheld by Provider - Provider: Reina Rivera MD)2099 ($ Given - Provider: Fern Ornelas RN) 0930 ($ Given - Provider: Zulma Ashraf, ALFRED)2005 ($ Given - Provider: Fern Ornelas RN) folic acid (Folvite) tablet 1 mg 1 mg, Enteral Tube, DAILY, First dose on Tue08/03/24 at 0900, Until Discontinued 899 (Dose Held - Provider: Yary James MD) 09 (Dose Held - Provider: Yary James MD)1348 (Unheld by Provider - Provider: Reina Rivera MD) 0930 ($ Given - Provider: Zulma Ashraf, RN) glycopyrrolate (Robinul) tablet 1 mg 1 mg, Enteral Tube, 2 TIMES DAILY, First dose on Tue08/03/24 at 0900, Until Discontinued 899 (Dose Held - Provider: Yary James MD)2100 (Dose Held - Provider: Yary James MD) 09 (Dose Held - Provider: Yary James MD)1348 (Unheld by Provider - Provider: Reina Rivera MD)2100 ($ Given - Provider: Fern Ornelas RN) 0930 ($ Given - Provider: Zulma Ashraf, ALFRED)2005 ($ Given - Provider: Fern Ornelas RN) guaiFENesin (Robitussin) solution 15 mL 15 mL, Enteral Tube, EVERY 6 HOURS (03,09,15,21), First dose on Tue08/03/24 at 0330, Until Discontinued 0300 (Dose Held - Provider: Yary James MD)0900 (Dose Held - Provider: Yary James MD)1500 (Dose Held - Provider: Yary James MD)2100 (Dose Held - Provider: Yary James MD) 0300 (Dose Held - Provider: Yary James MD)0900 (Dose Held - Provider: Yary James MD)1348 (Unheld by Provider - Provider: Reina Rivera MD)1528 ($ Given - Provider: Charles Rosenberg RN)2059 ($ Given - Provider: Fern Ornelas RN) 0422 ($ Given - Provider: Fern Ornelas RN)0931 ($ Given - Provider: Zulma Ashraf RN)1544 ($ Given - Provider: Zulma Ashraf RN)2005 ($ Given - Provider: Fern Ornelas RN) lacosamide (Vimpat) injection 200 mg (CANCELED) 200 mg, Intravenous, 2 TIMES DAILY, First dose on Tue08/05/24 at 0945, Until Discontinued 1130 ($ Given - Provider: Shakila Orellana RN)2037 ($ Given - Provider: Fern Ornelas RN) 1019 ($ Given - Provider: Charles Rosenberg RN) lacosamide (Vimpat) oral solution 200 mg 200 mg, Enteral Tube, 2 TIMES DAILY, First dose on Tue08/07/24 at 2100, Until Discontinued 2101 ($ Given - Provider: Fern Ornelas RN) 0931 ($ Given - Provider: Zulma Ashraf RN)2005 ($ Given - Provider: Fern Ornelas RN) levETIRAcetam (Keppra) 1,750 mg in 0.9% NaCl IV 267.5 mL IVPB (CANCELED) 1,750 mg, at 535 mL/hr, Intravenous, EVERY 12 HOURS, First dose (after last modification) on Tue08/06/24 at 2100, Until Discontinued 2255 ($ New Bag/Syringe - Provider: Fern Ornelas RN)2331 (Stopped - Provider: Fern Ornelas RN) 1239 ($ New Bag/Syringe - Provider: Charles Rosenberg, ALFRED)1339 (Stopped - Provider: Charles Rosenberg, ALFRED) levETIRAcetam (Keppra) injection 1,000 mg (CANCELED) 1,000 mg, Intravenous, EVERY 12 HOURS, First dose on Tue08/05/24 at 0900, Until Discontinued, Administer straight drug (undiluted) over two minutes 0926 ($ Given - Provider: Shakila Orellana, ALFRED) levETIRAcetam (Keppra) tablet 1,750 mg 1,750 mg, Enteral Tube, 2 TIMES DAILY, First dose on Tue08/07/24 at 2100, Until Discontinued, Do not crush or chew because of TASTE only. 2058 ($ Given - Provider: Fern Ornelas RN) 930 ($ Given - Provider: Zulma Ashraf, ALFRED)2005 ($ Given - Provider: Fern Ornelas RN) metoprolol (Lopressor) injection 5 mg (CANCELED) 5 mg, Intravenous, EVERY 8 HOURS, First dose on Tue08/05/24 at 1400, Until Discontinued 05 ($ Given - Provider: Fern Ornelas RN)1400 (Not Administered - Provider: Shakila Orellana, ALFRED - Reason: Other - Comment: pt off the floor)2036 ($ Given - Provider: Fern Ornelas, RN) 0538 ($ Given - Provider: Fern Ornelas, ALFRED) metoprolol tartrate IR (Lopressor) tablet 25 mg 25 mg, Enteral Tube, 2 TIMES DAILY, First dose on Tue08/03/24 at 0900, Until Discontinued 0900 (Dose Held - Provider: Yary James MD)2100 (Dose Held - Provider: Yary James MD) 0900 (Dose Held - Provider: Yary James MD)1348 (Unheld by Provider - Provider: Reina Rivera MD)2100 ($ Given - Provider: Fern Ornelas RN) 0931 ($ Given - Provider: Zulma Ashraf, ALFRED)2004 ($ Given - Provider: Fern Ornelas RN) pantoprazole (Protonix) injection 40 mg (CANCELED) 40 mg, Intravenous, 2 TIMES DAILY, First dose on Tue08/03/24 at 0900, Until Discontinued, For every 40 mg of pantoprazole mix with 10 mL Normal Saline (final concentration = 4 mg/mL). Inject SLOWLY over 2 min. 09 ($ Given - Provider: Shakila Orellana RN) pantoprazole (Protonix) injection 40 mg 40 mg, Intravenous, DAILY, First dose (after last modification) on Tue08/07/24 at 0900, Until Discontinued, For every 40 mg of pantoprazole mix with 10 mL Normal Saline (final concentration = 4 mg/mL). Inject SLOWLY over 2 min. 0908 ($ Given - Provider: Charles Rosenberg RN) 0931 (Not Administered - Provider: Zulma Ashraf RN - Reason: Other - Comment: No IV) piperacillin - tazobactam (Zosyn) 4.5 g in 0.9% NaCl IV 110 mL IVPB (CANCELED) 4.5 g, at 27.5 mL/hr, Intravenous, EVERY 8 HOURS, First dose on Tue08/05/24 at 1445, Until Discontinued, Indication for anti-infective therapy: Documented infection, Site of anti-infective therapy: Urine/Genitourinary 0235 (Stopped - Provider: Fern Ornelas RN)0533 ($ New Bag/Syringe - Provider: Fern Ornelas RN)0935 (Stopped - Provider: Shakila Orellana RN)1754 ($ New Bag/Syringe - Provider: Shakila Orellana RN)2252 (Stopped - Provider: Fern Ornelas RN) 0117 ($ New Bag/Syringe - Provider: Fern Ornelas RN)0533 (Stopped - Provider: Fern Ornelas RN)0915 ($ New Bag/Syringe - Provider: Charles Rosenberg RN)1235 (Stopped - Provider: Charles Rosenberg, ALFRED) polyethylene glycol 3350 (Miralax) packet 17 g 17 g, Per G Tube, DAILY, First dose on Tue08/03/24 at 0900, Until Discontinued, Mix in 8 ounces of water, juice, soda, coffee or tea prior to administration 0900 (Dose Held - Provider: Yary James MD) 0900 (Dose Held - Provider: Yary James MD)1348 (Unheld by Provider - Provider: Reina Rivera MD) 0932 ($ Given - Provider: Zulma Ashraf, ALFRED) senna (Senokot) tablet 8.6 mg 8.6 mg, Enteral Tube, DAILY, First dose on Tue08/03/24 at 0900, Until Discontinued 0900 (Dose Held - Provider: Yary James MD) 0900 (Dose Held - Provider: Yary James MD)1348 (Unheld by Provider - Provider: Reina Rivera MD) 0932 ($ Given - Provider: Zulma Ashraf RN) thiamine (Vitamin B-1) tablet 100 mg 100 mg, Enteral Tube, DAILY, First dose on Tue08/03/24 at 0900, Until Discontinued 0900 (Dose Held - Provider: Yary James MD) 0900 (Dose Held - Provider: Yary James MD)1348 (Unheld by Provider - Provider: Reina Rivera MD) 0932 ($ Given - Provider: Zulma Ashraf, ALFRED) valproate (Depacon) 500 mg in 0.9% NaCl IV 55 mL IVPB (CANCELED) 500 mg, at 55 mL/hr, Intravenous, EVERY 12 HOURS, First dose on Tue08/05/24 at 1015, Until Discontinued 1134 ($ New Bag/Syringe - Provider: Shakila Orellana, ALFRED)1239 (Stopped - Provider: Shakila Orellana RN) valproate (Depacon) 500 mg in 0.9% NaCl IV 55 mL IVPB (CANCELED) 500 mg, at 55 mL/hr, Intravenous, EVERY 8 HOURS, First dose (after last modification) on Tue08/06/24 at 2000, Until Discontinued 0005 ($ New Bag/Syringe - Provider: Fern Ornelas RN)0112 (Stopped - Provider: Fern Ornelas RN)0537 ($ New Bag/Syringe - Provider: Fern Ornelas RN)0743 (Stopped - Provider: Charles Rosenberg RN)1338 (Not Administered - Provider: Charles Rosenberg RN - Reason: Discontinued by physician) valproic acid (Depakene) solution 500 mg 500 mg, Per G Tube, EVERY 8 HOURS, First dose on Tue08/03/24 at 0600, Until Discontinued 0600 (Dose Held - Provider: Yary James MD)1400 (Dose Held - Provider: Yary James MD)2200 (Dose Held - Provider: Yary James MD) 0600 (Dose Held - Provider: Yary James MD)1311 (Unheld by Provider - Provider: Reina Rivera MD)1528 ($ Given - Provider: Charles Rosenberg RN)2100 ($ Given - Provider: Fern Ornelas RN) 0423 ($ Given - Provider: Fern Ornelas RN)1327 ($ Given - Provider: Zulma Ashraf RN)2006 ($ Given - Provider: Fern Ornelas RN) Continuous Medication Order 08/06/2024 08/07/2024 08/08/2024 dextrose 5 % and lactated ringers infusion at 75 mL/hr, Intravenous, CONTINUOUS, Starting on 08/05/24 at 1015, Until 08/08/24 at 2153 1542 ($ New Bag/Syringe - Provider: Charles Rosenberg RN) PRN Medication Order 08/06/2024 08/07/2024 08/08/2024 0.9% NaCl infusion (COMPLETED) Intravenous, CONTINUOUS PRN, Starting on 08/06/24 at 1415, Until 08/06/24 at 1415, Intra-op 1415 ($ New Bag/Syringe - Provider: Juan Diego Olvera RN) 0.9% NaCl injection 1-10 mL(Linked Group 1) 1-10 mL, Intracatheter, PRN, Other, peripheral line flush, Starting on Marian 08/02/24 at 1644, Until 08/08/24 at 2153, Flush peripheral IV catheter with 1-10 mL of normal saline before and after medications and prn to clear blood from the line or to verify patency. albuterol-ipratropium (Duo-Neb) nebulizer solution 3 mL 3 mL, Inhalation, EVERY 6 HOURS PRN, Shortness of Breath, Wheezing, Starting on Tue08/03/24 at 0302, Until Tue08/08/24 at 2152 bisacodyl (Dulcolax) suppository 10 mg 10 mg, Rectal, DAILY PRN, Constipation, Starting on Tue08/03/24 at 0303, Until Tue08/08/24 at 2152 calcium carbonate (500 mg elemental Ca/5 mL) suspension 500 mg, Enteral Tube, EVERY 6 HOURS PRN, Heartburn, GI Upset, Starting on Tue08/03/24 at 030, Until Tue08/08/24 at 2152, Shake well before using. dextrose IV 12.5 g(Linked Group 2) 12.5 g, Intravenous, PRN, Other, Bedside Glucose less than 70 mg/dL -If NOT able to eat and/or NPO and with IV Access, Starting on Tue08/03/24 at 0302, Until Tue08/08/24 at 2152, If NOT able to eat and/or NPO [...] HYPOGLYCEMIC EVENT. dextrose IV 25 g(Linked Group 2) 25 g, Intravenous, PRN, Other, Bedside Glucose less than 70 mg/dL -If NOT able to eat and/or NPO and with IV Access, Starting on Tue08/03/24 at 0302, Until Tue08/08/24 at 2152, If NOT able to eat and/or NPO [...] EVENT. glucagon (Glucagen) injection 1 mg(Linked Group 2) 1 mg, Subcutaneous, PRN, Bedside Glucose less than 70 mg/dL - If NOT able to eat and/or NPO and withOUT IV Access, Starting on Tue08/03/24 at 0302, Until Tue08/08/24 at 2152, If NOT able to eat and/or NPO [...] Glucose less than 70 mg/dL, Starting on Tue08/03/24 at 0302, Until Tue08/08/24 at 2153, If able to take oral medications: For [...] for choices) NOTIFY PROVIDER OF HYPOGLYCEMIC EVENT. heparinized saline 2 units/mL infusion (COMPLETED) Other, CONTINUOUS PRN, Starting on 08/06/24 at 1430, Until Tue08/06/24 at 1430, Intra-op 1430 ($ New Bag/Syringe - Provider: Krystal Payton MD - Comment: For Table) hydrALAZINE (Apresoline) injection 10 mg 10 mg, Intravenous, EVERY 4 HOURS PRN, SBP greater than 150 mmHg, Starting on 08/04/24 at 1653, Until Tue08/08/24 at 2153 iopamidol (Isovue 300) 61 % contrast (COMPLETED) ONCE PRN, Starting on Tue08/06/24 at 1457, Until Tue08/06/24 at 1457, Intra-op 1457 ($ Given - Provider: Krystal Payton MD) lidocaine (Urojet) 2 % jelly (COMPLETED) Urethral, ONCE PRN, Starting on Tue08/06/24 at 1435, Until Tue08/06/24 at 1435, Intra-op 1435 ($ Given - Provider: Krystal Payton MD) morphine injection 1 mg 1 mg, Intravenous, EVERY 4 HOURS PRN, Moderate Pain, Starting on 08/05/24 at 0948, Until Tue08/08/24 at 2153, Patient preference for lesser PRN pain meds [...] first unless patient cannot tolerate oral intake ondansetron (Zofran) injection 4 mg 4 mg, Intravenous, EVERY 6 HOURS PRN, Nausea/Vomiting, Starting on 08/04/24 at 0836, Until Tue08/08/24 at 2153, Administer over 2 to 5 minutes. oxyCODONE (Roxicodone) oral solution 2.5 mg 2.5 mg, Enteral Tube, EVERY 4 HOURS PRN, Mild Pain, Starting on 08/04/24 at 0836, Until Tue08/08/24 at 2153, Patient preference for lesser PRN pain meds [...] first unless patient cannot tolerate oral intake 1358 ($ Given - Provider: Charles Rosenberg, RN)2059 ($ Given - Provider: Fern Ornelas, ALFRED) Linked Groups Order Group 1: SALINE LOCK, INSERT AND MAINTAIN (CANCELED) Routine, CONTINUOUS, Starting on Tue08/02/24 at 1645, Until Specified, New collection, Task Completed: Yes And 0.9% NaCl injection 3 mLJump to med 3 mL, Intracatheter, EVERY 8 HOURS, First dose on Tue08/02/24 at 1715, Until Discontinued, Flush peripheral IV catheter with 3 mL of normal saline every 8 hours. And 0.9% NaCl injection 1-10 mLJump to med 1-10 mL, Intracatheter, PRN, Other, peripheral line flush, Starting on Tue08/02/24 at 1644, Until Tue08/08/24 at 2153, Flush peripheral IV catheter with 1-10 mL of normal saline before and after medications and prn to clear blood from the line or to verify patency. Group 2: dextrose IV 12.5 gJump to med 12.5 g, Intravenous, PRN, Other, Bedside Glucose less than 70 mg/dL -If NOT able to eat and/or NPO and with IV Access, Starting on Tue08/03/24 at 0302, Until Tue08/08/24 at 215, If NOT able to eat and/or NPO [...] NPO and with IV Access, Starting on Tue08/03/24 at 0302, Until Tue08/08/24 at 215, If NOT able to eat and/or NPO [...] NPO and withOUT IV Access, Starting on Tue08/03/24 at 0302, Until Tue08/08/24 at 2152, If NOT able to eat and/or NPO and NO IV Access: For Bedside glucose 54- 69 mg/dL - Give 1 mg subcutaneous For [...] Date Last Indicated Resolved Time 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 Source: [facility]. 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
--- OUTSIDE RECORDS SUMMARY | 2024-08-09 01:05 | XMS_ITS | Encounter Summary ---
Author Organization [facility] Address [address] [place] [address] Care Team Providers Care Harbor Boat Pilot Name Role Phone Frank Toure MD Unavailable Kayla Porras YOUTH ASSOCIATE Primary Care Provider [phone] Misael Maradiaga DO Primary Care Provider + [phone] Joyce Luevano YOUTH ASSOCIATE Primary Care Provider Unavaila Marielena Adame MD Primary Care Provider [phone] Encounter Details Date Type Department Care Team (Latest Contact Info) Description 02/01/2018 Abstract [facility] , Jerica Cordon MD Social [...] on filedocumented in this encounter Care Teams Harbor Boat Pilot Relationship Specialty Start Date End Date Kayla Porras NP [address] [place] [address] PCP - General 06/25/16 09/27/18 Misael Maradiaga DO [address] [place] [address] PCP - General FAMILY PRACTICE 09/28/18 01/13/20 Joyce L[place] [address] PCP - General NURSE PRACTITIONER 01/14/20 10/26/23 Marielena Smallwood MD [address] [place] [id number] PCP - General FAMILY PRACTICE 10/27/23 Frank Toure MD [facility] [place] [address] [employer] CARDIOVASCULAR DISEASE 05/30/16 documented as of this encounter
--- OUTSIDE RECORDS SUMMARY | 2024-08-09 01:05 | XMS_ITS | Data Portability ---
Demographics Address [address] [place] [address] Home Phone Mobile Phone Email Address Preferred Language en Marital Status Never Alevism Affiliation Unknown Race Black or Irma rican Ethnic Group Not or Lati no Author Organization [facility] Address [address] [place] [address] Assessment No assessment recorded. Plan of Treatment Reminders Order Date Submit Date Provider Last Modified By Organization Details Last Modified Time Details Appointments None recorded. Lab None recorded. Referral None recorded. Procedures None recorded. Surgeries None recorded. Imaging None recorded. Medication Orders ibuprofen 800 mg tablet 2015 016 [facility], [address] [place] [address], [id number], 6 18:35:08 Prozac 20 mg capsule 2014 015 [facility], [address] [place] [address], [id number], 5 16:10:15 tramadol 50 mg tablet 2014 015 [facility], [address] [place] [address], [id number], 5 12:13:56 Flomax 0.4 mg capsule 2014 015 [facility], [address] [place] [address], [id number], 5 16:10:16 Ambien 10 mg tablet 2014 015 [facility], [address] [place] [address], [id number], 5 10:37:28 Patient TargetsNo targets recorded. Patient Instructions Encounter Date Encounter Id Patient Instructions Last Modified By Organization Details Last Modified Time 06/10/2014 [id number] stroke: care instructions Not available 06/21/2014 17:33:19 insomnia: care instructions Not available 06/21/2014 17:33:19 epilepsy: care instructions Not available 06/21/2014 17:33:19 09/18/2014 [id number] epilepsy: care instructions dsalmond Not available 09/18/2014 17:05:10 back care and preventing injuries: care instructions [email or web address] Not available 09/18/2014 17:05:10 04/16/2015 [id number] epilepsy: care instructions campadu Not available 04/16/2015 16:05:30 06/12/2015 [id number] stroke: care instructions dsalmond Not available 06/13/2015 12:21:31 epilepsy: care instructions dsalmond Not available 06/13/2015 12:21:31 learning about high blood pressure dsalmond Not available 06/13/2015 12:21:31 Reason for Referral None Reported. Results Created Date Observation Date Name Description Value Unit Range Abnormal Flag Note LastModifiedBy Organization Detail LastModifiedTime 06/12/19 16 06/12/2015 CBC w/ auto diff WBC 5.9 K/uL 3.4-10 .8 Not Available [facility] (Lab) [address] [place], [address], 06/12/2015 19:52:35 06/12/19 16 06/12/2015 CBC w/ auto diff red blood count 4.6 M/uL 4.5-6. 3 Not Available [facility] (Lab) [address], [place], [address], 06/12/2015 19:52:35 06/12/19 16 06/12/2015 CBC w/ auto diff hemoglobin 14.7 g/dL 13.5-1 7.5 Not Available [facility] (Lab) [address] [place], [address], 06/12/2015 19:52:35 06/12/19 16 06/12/2015 CBC w/ auto diff hematocrit 44.5 % 40.0-5 2.0 Not Available [facility] (Lab) [address] [place], [address], 06/12/2015 19:52:35 06/12/19 16 06/12/2015 CBC w/ auto diff MCV 97 fL 80-95 high Not Available [facility] (Lab) [address] [place], [address], 06/12/2015 19:52:35 06/12/19 16 06/12/2015 CBC w/ auto diff MCH 32 pg 27-32 Not Available [facility] (Lab) [address] [place], [address], 06/12/2015 19:52:35 06/12/19 16 06/12/2015 CBC w/ auto diff MCHC 33 g/dL 32-36 Not Available [facility] (Lab) [address] [place], [address], 06/12/2015 19:52:35 06/12/19 16 06/12/2015 CBC w/ auto diff platelets 219 K/uL 155-37 9 Not Available [facility] (Lab) [address] [place], [address], 06/12/2015 19:52:35 06/12/19 16 06/12/2015 CBC w/ auto diff RDW 11.6 % 11.5-1 4.5 Not Available [facility] (Lab) [address] [place], [address], 06/12/2015 19:52:35 06/12/19 16 06/12/2015 CBC w/ auto diff MPV 11.1 fL 8.9-12 .7 Not Available [facility] (Lab) [address] [place], [address], 06/12/2015 19:52:35 06/12/19 16 06/12/2015 CBC w/ auto diff neutrophils absolute 2.5 K/uL 1.4-7. 0 Not Available [facility] (Lab) [address] [facility], [place], [address], 06/12/2015 19:52:35 06/12/19 16 06/12/2015 CBC w/ auto diff lymphs (absolute) 2.6 K/uL 0.7-3. 1 Not Available [facility] (Lab) [address] [facility], [place], [address], 06/12/2015 19:52:35 06/12/19 16 06/12/2015 CBC w/ auto diff monocytes (absolute) 0.5 K/uL 0.1-0. 9 Not Available [facility] (Lab) [address] [place], [address], 06/12/2015 19:52:35 06/12/19 16 06/12/2015 CBC w/ auto diff eos (absolute) 0.2 K/uL 0.0-0. 4 Not Available [facility] (Lab) [address] [place], [address], 06/12/2015 19:52:35 06/12/19 16 06/12/2015 CBC w/ auto diff baso (absolute) 0.0 K/uL 0.1-0. 3 low Not Available [facility] (Lab) [address] [facility], [place], [address], 06/12/2015 19:52:35 06/12/19 16 06/12/2015 CBC w/ auto diff neut % 43.1 % 40.0-7 4.0 Not Available [facility] (Lab) [address] [place], [address], 06/12/2015 19:52:35 06/12/19 16 06/12/2015 CBC w/ auto diff lymphs % 44.6 % 14.0-4 6.0 Not Available [facility] (Lab) [address] [place], [address], 06/12/2015 19:52:35 06/12/19 16 06/12/2015 CBC w/ auto diff mono % 8.7 % 4.0-12 .0 Not Available [facility] (Lab) [address], [place], [address], 06/12/2015 19:52:35 06/12/19 16 06/12/2015 CBC w/ auto diff eos % 3 % <=5 Not Available [facility] (Lab) [address], [place], [address], 06/12/2015 19:52:35 06/12/19 16 06/12/2015 CBC w/ auto diff baso % 0.2 % 0.1-1. 1 Not Available [facility] ([facility]) [address] [facility], [place], [address], 06/12/2015 19:52:35 06/12/19 16 06/13/2015 HbA1c (hemo globi n A1c), blood hemoglobin A1C 5.4 % 4.8-5. 6 . Pre-d iabet es: 5.7 - 6.4 Diabe ivet: >6.4 Glyce [place] contr ol for adult s with diabe ivet: <7.0 Not Available [facility] (Lab) [address], [place], [address], 06/13/2015 04:12:44 06/12/19 16 06/13/2015 T4, total , serum thyroxine T4 4.7 ug/dL 4.5-12 .0 Not Available [facility] ([facility]) [address] [place], [address], 06/13/2015 05:19:09 06/12/19 16 06/13/2015 CMP, serum or plasm a glucose, serum 98 mg/dL 65-99 Not Available [facility] [address], [place], [address], 06/13/2015 05:19:11 06/12/19 16 06/13/2015 CMP, serum or plasm a BUN 7 mg/dL 6-24 Not Available [facility] (Lab) [address], [place], [address], 06/13/2015 05:19:11 06/12/19 16 06/13/2015 CMP, serum or plasm a creatinine, serum 0.78 mg/dL 0.76-1 .27 Not Available [facility] (Lab) [address], [place], [address], 06/13/2015 05:19:11 06/12/19 16 06/13/2015 CMP, serum or plasm a eGFR if nonafricn AM 102 mL/mi n/1.7 3 >59 Not Available [facility] (Lab) [address], [place], [address], 06/13/2015 05:19:11 06/12/19 16 06/13/2015 CMP, serum or plasm a eGFR if 118 mL/mi n/1.7 3 >59 Not Available [facility] (Lab) [address], [place], [address], 06/13/2015 05:19:11 06/12/19 16 06/13/2015 CMP, serum or plasm a BUN/creatini ne ratio 9 9-20 Not Available [facility] (Lab) [address], [place], [address], 06/13/2015 05:19:11 06/12/19 16 06/13/2015 CMP, serum or plasm a sodium, serum 141 mmol/ L 134-14 4 Not Available [facility] (Lab) [address] [place], [address], 06/13/2015 05:19:11 06/12/19 16 06/13/2015 CMP, serum or plasm a potassium, serum 4.5 mmol/ L 3.5-5. 2 Not Available [facility] (Lab) [address], [place], [address], 06/13/2015 05:19:11 06/12/19 16 06/13/2015 CMP, serum or plasm a chloride, serum 101 mmol/ L 97-108 Not Available [facility] (Lab) [address] [place], [address], 06/13/2015 05:19:11 06/12/19 16 06/13/2015 CMP, serum or plasm a carbon dioxide, total 23 mmol/ L 18-29 Not Available [facility] (Lab) [address], [place], [address], 06/13/2015 05:19:11 06/12/19 16 06/13/2015 CMP, serum or plasm a calcium, serum 9.5 mg/dL 8.7-10 .2 Not Available [facility] (Lab) [address], [place], [address], 06/13/2015 05:19:11 06/12/1906/13/2015 CMP, serum or plasm a protein total serum 7.2 g/dL 6.0-8. 5 Not Available [facility] (Lab) [address], [place], [address], 06/13/2015 05:19:11 06/12/1906/13/2015 CMP, serum or plasm a albumin, serum 4.5 g/dL 3.5-5. 5 Not Available [facility] (Lab) [address], [place], [address], 06/13/2015 05:19:11 06/12/19 16 06/13/2015 CMP, serum or plasm a globulin total 2.7 g/dL 1.5-4. 5 Not Available [facility] (Lab) [address], [place], [address], 06/13/2015 05:19:11 06/12/1906/13/2015 CMP, serum or plasm a A/G ratio 1.7 1.1-2. 5 Not Available [facility] (Lab) [address], [place], [address], 06/13/2015 05:19:11 06/12/1906/13/2015 CMP, serum or plasm a bilirubin total <0.2 mg/dL 0.0-1. 2 Not Available [facility] (Lab) [address] [place], [address], 06/13/2015 05:19:11 06/12/19 16 06/13/2015 CMP, serum or plasm a alkaline phosphatase ser 105 IU/L 39-117 Not Available [facility] (Lab) [address], [place], [address], 06/13/2015 05:19:11 06/12/19 16 06/13/2015 CMP, serum or plasm a AST (SGOT) 20 IU/L 0-40 Not Available [facility] ([facility]) [address] [place], [address], 06/13/2015 05:19:11 06/12/19 16 06/13/2015 CMP, serum or plasm a ALT (SGPT) 18 IU/L 0-44 Not Available [facility] ([facility]) [address] [place], [address], 06/13/2015 05:19:11 06/12/19 16 06/13/2015 TSH, serum or plasm a TSH 2.010 uIU/m L 0.450- 4.500 Not Available [facility] (Lab) [address] [place], [address], 06/13/2015 05:19:12 06/12/19 16 06/13/2015 PSA, serum [...] t be inter prete d as absol [place] evide nce of the prese nce or absen ce of truong mena . Not Available [facility] (Lab) [address] [place], [address], 06/13/2015 05:19:13 06/12/19 16 06/13/2015 lipid panel w/ direc t LDL, serum cholesterol, total 215 mg/dL 100-19 9 high Not Available [facility] (Lab) [address] [place], [address], 06/13/2015 05:19:14 06/12/19 16 06/13/2015 lipid panel w/ direc t LDL, serum triglyceride s 73 mg/dL 0-149 Not Available [facility] (Lab) [address] [place], [address], 06/13/2015 05:19:14 06/12/19 16 06/13/2015 lipid panel w/ direc t LDL, serum HDL cholesterol 85 mg/dL >39 Accor ding to ATP-I II Guide lines , HDL-C >59 mg/dL is consi dered a negat phan risk facto r for CHD. Not Available [facility] (Lab) [address] [place], [address], 06/13/2015 05:19:14 06/12/19 16 06/13/2015 lipid panel w/ direc t LDL, serum VLDL cholesterol margarita 15 mg/dL 5-40 Not Available [facility] ([facility]) [address] [place], [address], 06/13/2015 05:19:14 06/12/19 16 06/13/2015 lipid panel w/ direc t LDL, serum LDL cholesterol calc 115 mg/dL 0-99 high Not Available [facility] ([facility]) [address] [place], [address], 06/13/2015 05:19:14 06/12/19 16 06/13/2015 lipid panel w/ direc t LDL, serum lipid calculation Not Available [facility]) [address] [place], [address], 06/13/2015 05:19:14 09/22/19 15 09/21/2014 imagi ng/di agnos tic resul t No observ ation record ed. [address] , [place], [address], 09/30/2014 11:19:53 09/26/19 15 imagi ng/di agnos tic resul t No observ ation record ed. [email or web address] Not Available 2014 11:08:28 10/01/19 15 09/27/2014 imagi ng/di agnos tic resul t No observ ation record ed. [address] [place], [address], 10/03/2014 11:08:29 11/09/19 15 11/08/2014 imagi ng/di agnos tic resul t No observ ation record ed. [email or web address] Not Available 2014 15:10:11 12/02/19 15 12/01/2014 imagi ng/di agnos tic resul t No observ ation record ed. [email or web address] Not Available 2014 10:38:41 01/03/20 15 12/31/2014 imagi ng/di agnos tic resul t No observ ation record ed. [facility]) [address] [place], [address], 01/02/2015 09:50:17 01/07/20 15 01/05/2015 imagi ng/di agnos tic resul t No observ ation record ed. [email or web address] [facility], [place], [address], 01/06/2015 09:32:38 03/10/20 15 03/10/2015 imagi ng/di agnos tic resul t No observ ation record ed. [email or web address] [facility] (Rad) [address] [place], [address], 03/10/2015 12:50:58 03/11/20 15 03/11/2015 CV EKG 12 lead MOJGAN TABOR MD: KIRILL ANN MD 6905 ACCT: [id number] ADMIT/ SERVIC E DATE: DISCHA RGE DATE: : 1959 PT TYPE: ADM IN SEX: M ORD SITE: [address] TEST DATE: 2014-05 PAT NAME: MOJGAN TABOR DEPART MENT: CARD 40 PATIEN T ID: [id number] [place]OM: [facility] [place] [facility] [place] GENDER : MALE TECHNI MARIA ISABEL: CDN : 01-[address] BY: CADE ANN ORDER NUMBER : [id number] [id number] CJ Lu MD: FELIPE SELF MEASUR EMENTS INTERV ALS AXIS RATE: 145 P: 81 IN: 118 QRS: 19 QRSD: 82 T: 70 QT: 282 QTC: 438 INTERP RETIVE STATEM ENTS SINUS TACHYC ARDIA WITH SHORT IN INTERV AL WITH OCCASI ONAL VENTRI CULAR PREMAT URE COMPLE XES WITH OCCASI ONAL SUPRAV ENTRIC ULAR AMBER SEPTAL MYOCAR DIAL INFARC TION, PROBAB LY OLD NONSPE CIFIC ST SEGMEN T ABNORM ALITIE S, CANNOT RULE OUT ISCHEM IA ELECTR ONICAL LY SIGNED BY FELIPE SELF AT 17:03: 07 CDT [facility], [place], [address], 05/07/2015 04:08:47 03/11/20 15 03/11/2015 xr chest 1 view alejandraMOJGAN Hester 6905 ADMIT/ SERVIC E DATE: ACCT: [id number] DISCHA RGE DATE: : 1959 SEX: M ORD SITE: [facility] PT TYPE: ADM IN JING MUHAMMAD MD: KIRILL ANN MD STUDY DATE REPORT # ORDER # EXT ORDER ID [id number] 1.002 PROC CODE: [id number] ORT PROCED URE DESCRI PTION: XR CHEST 1 VIEW PORTAB LE I MPRESS ION: NO ACUTE INFILT RATE. EXAMIN ATION: PORTAB LE CHEST X-RAY 1 VIEW ACCESS ION: [id number] EXAM DATE/T TRAVON: 2014 8:36 PM CLINIC [...] SIGNED BY: MARYBEL CROUCH ER10/07/2014 8:54 PM [facility], [place], [address], 05/07/2015 04:08:47 03/12/20 15 03/12/2015 MRI brain wo MOJGAN TABOR 6905 ADMIT/ SERVIC E DATE: ACCT: [id number] DISCHA RGE DATE: : 1959 SEX: M ORD SITE: [facility] PT TYPE: ADM IN BRANDONI SABINA MD: KIRILL ANN MD STUDY DATE REPORT # ORDER # EXT ORDER ID [id number] 1.001 PROC CODE: BRNWOC PROCED URE DESCRI [...] BRAIN WITHOU T CONTRA ST. ACCESS ION: [id number] EXAM DATE/T TRAVON: 2014 11:23 AM CLINIC [...] SIGNED BY: CADE GRAY 11:51 AM build [facility], [place], [address], 05/07/2015 04:08:47 06/19/19 16 06/19/2015 imagi ng/di agnos tic resul t No observ ation record ed. [facility] Not Available 2015 09:33:44 06/19/19 16 06/19/2015 imagi ng/di agnos tic resul t No observ ation record ed. [facility] (Lab) [address] [place] [address] , [place], [address], 06/19/2015 09:33:44 06/19/19 16 06/19/2015 imagi ng/di agnos tic resul t No observ ation record ed. [facility] (Lab) [address] [place] [address] [place], [address], 06/20/2015 09:57:26 06/20/19 16 06/19/2015 imagi ng/di agnos tic resul t No observ ation record ed. [address] [place], [address], 06/20/2015 10:01:56 05/09/20 19 05/09/2019 , les aldana id arter y No observ ation record ed. [address] [place], [address], 05/09/2019 17:59:20 Result Notes None recorded. Problems Name Problem SNOMED Code Status Onset Date Resolution Date Notes Provider Name and Address Organization Details Recorded Time Low back pain 836586780 Active Burke Ann MD Attn: Zulemalivia lu,[address] [facility], [place], [address], [place] [facility] 5 16:09:38 Essential hypertension 86931239 Active Bruke Ann MD Attn: Austin tabitha,[address] [facility], [place], [address], [place] [facility] 6 18:34:53 Anxiety 42114833 Active Burke Ann MD Attn: Austin lu,[address] [facility], [place], [address], [place] [facility] 5 15:03:30 Laceration - injury 873451154 Active Burke Ann MD Attn: Zulemalivia lu,[address] [facility], [place], [address], [place] [facility] 5 15:31:20 Seizure disorder 242686699 Active Burke Ann MD Attn: Austin tabitha,[address] [facility], [place], [address], [place] [facility] 6 18:34:53 Cerebrovascula r accident 322994968 Active Burke Ann MD Attn: [place] tabitha,[address] [facility], [place], [address], [place] [facility] 6 18:34:53 Insomnia 171232637 Active Burke Ann MD Attn: Austin lu,[address] [facility], [place], [address], [place] [facility] 5 15:31:20 Problem Notes None recorded. Procedures Surgical History None recorded. Imaging Results Imaging Date Name Status LastModified by Organiz ation Details LastModified Time 09/21/2014 imaging/diagn ostic result completed [address] [place], [address], 09/30/2014 11:19:53 09/25/2014 imaging/diagn ostic result completed Information not available 10/03/2014 11:08:28 09/27/2014 imaging/diagn ostic result completed [address] [place], [address], 10/03/2014 11:08:29 11/08/2014 imaging/diagn ostic result completed Information not available 11/11/2014 15:10:11 12/01/2014 imaging/diagn ostic result completed [email or web address] Information not available 12/02/2014 10:38:41 12/31/2014 imaging/diagn ostic result completed [email or web address] [facility] ([facility]) [address] [place], [address], 01/02/2015 09:50:17 01/05/2015 imaging/diagn ostic result completed [email or web address] [place], [address], 01/06/2015 09:32:38 03/10/2015 imaging/diagn ostic result completed [email or web address] [facility] ([facility]) [address] [place], [address], 03/10/2015 12:50:58 03/11/2015 CV EKG 12 [place], [address], 05/07/2015 04:08:47 03/11/2015 xr chest 1 [place], [address], 05/07/2015 04:08:47 03/12/2015 [place], [address], 05/07/2015 04:08:47 06/19/2015 imaging/diagn ostic result completed [facility] Information not available 06/19/2015 09:33:44 06/19/2015 imaging/diagn ostic result completed [facility] (Lab) [address] [place] [address] [place], [address], 06/19/2015 09:33:44 06/19/2015 imaging/diagn ostic result completed [facility] (Lab) [address] [place] [address] [place], [address], 06/20/2015 09:57:26 06/19/2015 imaging/diagn ostic result completed [address] [place], [address], 06/20/2015 10:01:56 05/09/2019 US, duplex, carotid artery completed [address] [place], [address], 05/09/2019 17:59:20 Procedure Notes None recorded. Medical [...] Details Last Updated DateTime 5 22 /min 36620.9 37165 g 98.7 [degF] 170.18 cm 21.4 kg/m2 80 /min 148 mm[Hg] 94 mm[Hg] Leonor Arauz MA [facility] 5 15:57:48 Date Recorded Body height Body mass index (BMI) Body weight Heart rate Respiratory rate Body temperature Systolic blood pressure Diastolic blood pressure Provider Name and Address Organization Details Last Updated DateTime 5 170.18 cm 21.5 kg/m2 21224.1 5469 g 88 /min 20 /min 98.2 [degF] 132 mm[Hg] 80 mm[Hg] Fior Pereyra MA [facility] 5 12:08:47 Date Recorded Body temperature Body height Body mass index (BMI) Heart rate Respiratory rate Body weight Systolic blood pressure Diastolic blood pressure Provider Name and Address Organization Details Last Updated DateTime 5 97.9 [degF] 175.26 cm 20.2 kg/m2 78 /min 18 /min 33259.1 5469 g 142 mm[Hg] 90 mm[Hg] Jeannasunitha Luan [facility] 5 13:46:55 Date Recorded Heart rate Body height Respiratory rate Body mass index (BMI) Body weight Body temperature Systolic blood pressure Diastolic blood pressure Provider Name and Address Organization Details Last Updated DateTime 6 92 /min 170.18 cm 20 /min 21.5 kg/m2 53473.1 5469 g 98 [degF] 102 mm[Hg] 78 mm[Hg] Leonor Arauz MA [facility] 6 16:31:07 Social History None recorded. [...] Skin Problems N Anemia N Heart Attack (SC) N Anxiety Disorder Y Diabetes N Muscle, Joint, or Bone Problems N Seizures/Epilepsy Y Acid Reflux (GERD) N Cancer N Stroke Y Asthma N Allergies N High Cholesterol N Hepatitis N Liver Disease N Headaches Y Heart Failure N Osteoporosis N Past Encounters Encounter ID Performer Location Encounter Start Date Encounter Closed Date Diagnosis/Indication Diagnosis SNOMED-CT Code Diagnosis ICD10 Code Diagnosis Note [id number] Jeannie Sherman RN [facility] (Adult[facility]) [address] [place] [phone] 06/10/2014 13:26:21 06/10/2014 18:13:06 Laceration - injury 720878582 Seizure disorder 906908374 Cerebrovas cular accident 696091948 Insomnia 533771967 [id number] Nata Albert LPN [facility] (Adult[facility]) [address] [place] [phone] 09/18/2014 14:45:50 09/18/2014 18:01:22 Seizure disorder 631005458 Anxiety 82521676 Low back pain 678546238 [id number] Crystal Toy [facility] (Adult[facility]) [address] [place] [phone] 04/16/2015 11:24:38 04/16/2015 17:33:17 Essential hypertension 49004084 I10 Anxiety 61389069 F41.9 Seizure disorder 2318000 02 G40.909 [id number] Dotty Peace [facility] (Adult/Fa m [facility]) [address] [place] [phone] 06/12/2015 15:25:04 06/27/2015 12:04:51 Essential hypertension 09979236 I10 Seizure disorder 6455684 02 G40.909 Cerebrovas cular accident 686759747 I63.9 Health Concerns Section Related Observation LastModified by Organization Detai ls LastModified Time None Recorded Concern Status LastModified by Organization Details LastModified Time None Recorded Advance Directives Directive None Recorded Payers Encounter Date Sequence Insurance Name Policy Number Policy Gilbert Covered Member ID Gilbert Member ID Guarantor Name 06/10/2014 1 [facility] PRIOR TO 11/27/2020 (MEDICAID REPLACEMENT - HMO) Mojgan Tabor [id number] Mojgan Tabor 09/18/2014 1 [facility] PRIOR TO 11/27/2020 (MEDICAID REPLACEMENT - HMO) Mojgan Tabor [id number] Mojgan Tabor 04/16/2015 1 [facility] PRIOR TO 11/27/2020 (MEDICAID REPLACEMENT - HMO) Mojgan Tabor [id number] Mojgan Tabor 06/12/2015 1 [facility] PRIOR TO 11/27/2020 (MEDICAID REPLACEMENT - HMO) Mojgan Tabor [id number] Mojgan Tabor Notes Date Note Type Note Provider Name and Address Organization Details Recorded Time 04/16/2015 text/html FOLLOW up care since stroke Burke Ann MD Attn: [employer]ing,[address] [place], [address], [place] [facility] 04/16/2015 15:03:31
--- OUTSIDE RECORDS SUMMARY | 2024-08-09 01:05 | XMS_ITS | Encounter Summary ---
Author Organization [facility] Address [address] [place] [address] Care Team Providers Care Pluck Trimmer Name Role Phone Frank Toure MD Unavailable Misael Maradiaga DO Primary Care Provider [phone] Joyce Luevano NP Primary Care Provider Unavaila Marielena Adame MD Primary Care Provider [phone] Encounter Details Date Type Department Care Team (Late st Contact Info) Description 12/14/2018 Hospital Follow-up Call [facility] [place] [address] Cony Adan RN Social History Tobacco Use [...] on filedocumented in this encounter Care Teams Pluck Trimmer Relationship Specialty Start Date End Date Misael Maradiaag DO [address] [place] [address] PCP - General FAMILY PRACTICE 09/28/18 01/13/20 Joyce Luevano NP [address] [place] [id number] PCP - General NURSE PRACTITIONER 01/14/20 10/26/23 Marielena Smallwood MD [address] [place] [id number] PCP - General FAMILY PRACTICE 10/27/23 Frank Toure MD [address] [place] [id number] [employer] CARDIOVASCULAR DISEASE 05/30/16 documented as of this encounter
--- OUTSIDE RECORDS SUMMARY | 2024-08-09 01:06 | XMS_ITS | Referral Summary ---
Author Organization [facility] Address [address] [place] [address] Care Team Providers Care Storage Manager Name Role Phone Marielena Smallwood MD Primary Care Provider Encounters Date Type Department Care Team Description 07/09/2024 7:23 PM CHANGE MANAGEMENT MANAGER - 07/09/2024 11:59 PM CHANGE MANAGEMENT MANAGER Hospital Encounter AMBULANCE BILLING [address] [place] [address] Discharge Disposition: Discharge to home or self care 07/08/2024 7:52 PM CHANGE MANAGEMENT MANAGER - 07/09/2024 7:48 AM CHANGE MANAGEMENT MANAGER Emergency [facility] Emergency Department [address] [place] [id number] Tri Martinez MD Thomas, Cherie Edwards MD Tracheostomy complication, unspecified complication type (HCC) (Primary Dx); Balanitis Discharge Disposition: Discharge to home or self care 06/12/2024 10:26 AM CHANGE MANAGEMENT MANAGER - 06/28/2024 5:25 PM CHANGE MANAGEMENT MANAGER Hospital Encounter [address] [phone] Shakila Jung MD Choi, Cheuk Ho Jeffrey, MD Nelson, MD Juliane Osullivan, Hermes Ansari Jr., MD Felix, MD Jeff De León, Joyce C., MD GurrPatricia farrar MD Quinley, Patricia M., MD Abdominal pain (Primary Dx); Distended abdomen; [...] 06/28/19 Active cloBAZam (ONFI) 2.5 mg/mL suspensionIndicati ons:[place]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 06/28/19 Active ipratropium-albute roL (DUO-NEB) 0.5-2.5 mg/3 mL [...] 06/28/2024 Assessment & Plan (06/28/2024 11:42 AM CHANGE MANAGEMENT MANAGER): Now back on full TF's sugars running mildly high. Monitor with q4 accuchecks and SSI. Hypophosphatemia 06/27/2024 Assessment & Plan (06/28/2024 11:44 AM CHANGE MANAGEMENT MANAGER): <0.7 ? 2/2 refeeding syndrome. Started on neutraphos 2pkg QID 06/26. Still Phos<0.7 06/27. Tx with IV NaPhos 30mmoles and cont per tube replacement and monitor closely. -06/28: Phos=3.3, reduce nuetraphos to 1 PKG BID and monitor History of DVT (deep vein thrombosis) 06/26/2024 Assessment & Plan (06/26/2024 1:32 PM CHANGE MANAGEMENT MANAGER): -On anticoagulation with Eliquis 5 mg po BID for hx of DVT -per chart review hx of Left Subclavian vein DVT diagnosed 08/01/23 H/O: GI bleed 06/25/2024 Assessment & Plan (06/26/2024 1:32 PM CHANGE MANAGEMENT MANAGER): - [facility] ( [facility]-07-24 [...] 06/25/2024 Assessment & Plan (06/26/2024 1:36 PM CHANGE MANAGEMENT MANAGER): Tracheostomy dependence, has a Shiley #4 cuffed. Pt followed at [facility], per notes trach in place for pulmonary toilet due to his copious secretions and ongoing aspiration of his secretions. -needing frequent suctioning -sats stable on 28% FIO2 by HHTC -Was getting VEST at [facility] Low grade fever 06/20/2024 Assessment & Plan (06/26/2024 1:34 PM CHANGE MANAGEMENT MANAGER): Low-grade fever and tachycardia, softer BP after [...] 06/17/2024 Assessment & Plan (06/28/2024 11:43 AM CHANGE MANAGEMENT MANAGER): -patient at admission with a G tube, was getting continous tube feedings at [facility] and not tolerating, -was changed to bolus [...] 12/14/22 (additional documented GJ tube procedures at [facility] most recent 09/09/23). Pt ' feeding tube fell off and pt had 18 [place] G tube placed at [facility] ED on 04/21/24 (records on care everywhere)and after that he has not tolerated well tube feedings per discussion with his sister Ms Hilliard,Adriane [phone] POA - consulted IR 06-20-24 for conversion [...] goal 06/25, adjust FWF per hydration status, vegetable tester to follow up -On full TF's-osmolite 1.5. Phos repleted. Copious oral secretions 06/13/2024 Assessment & Plan (06/26/2024 1:29 PM CHANGE MANAGEMENT MANAGER): Patient on chronic glycopyrrolate due to secretions, held at admission 07/01 to potential for constipation with plan to add back when he's had a bowel movements -resume on 06-19- hold on 06-20 due to somnolence. Suction PRN - restart glycopyrrolate 1mg BID 06/26 and monitor Abdominal pain 06/12/2024 Assessment & Plan (06/26/2024 1:23 PM CHANGE MANAGEMENT MANAGER): -p/w abdominal distention from SNF to ED on 06-12 ,reported biliary emesis per senior care (approximately 300 cc) , not associated fevers or change in bowel habits. Feeding tube placed to gravity drainage in ED H&P notes regular bowel movements. CT scan on 06-12 in ED with stool in the rectum and sigmoid. [place] likely constipation contributing to the patient's abdominal [...] 06/12/2024 Assessment & Plan (06/26/2024 12:08 AM CHANGE MANAGEMENT MANAGER): Complicated by left LE AKA. History of CVA (cerebrovascular accident) 2020 Assessment & Plan (06/26/2024 1:32 PM CHANGE MANAGEMENT MANAGER): - hx of RT parietal CVA- hx of dementia Cont asa and statin Essential hypertension 12/11/2020 Assessment & Plan (06/26/2024 1:30 PM CHANGE MANAGEMENT MANAGER): - on metoprolol and norvasc, held with soft BP 06-19 - resume metoprolol 06-21 -resume amlodipine 06-22 - Monitor Hyperlipidemia 12/11/2020 Assessment & Plan (06/12/2024 3:47 PM CHANGE MANAGEMENT MANAGER): - Continue home statin Seizure 12/10/2020 Assessment & Plan (06/26/2024 1:36 PM CHANGE MANAGEMENT MANAGER): History of seizure disorder secondary to traumatic brain injury. Currently on valproate, Vimpat, Keppra and Cobazam - Continue home medication, valproate level low at admit 48 on 06-12, 48 on 06-13, Valproic acid level 76 06-19 prior to dose, lacosamide level 1.4 on 06/12, 9.6 on 06-19 Followed by Neurology at [facility] Cognitive communication deficit 08/25/2020 Cerebrovascular accident 06/13/2019 [...] Smokeless Tobacco: Current Tobacco Cessation:Counseling Given: Yes [facility] Utilities Answer Date Recorded In the past 12 months has [email or web address] electric, gas, oil, or water company threatened [...] often do you attend chur ch or episcopal services? Never 06/18/2024 Do you belong to any clubs o r organizations such as baptist groups, unions, fraternal or athletic groups, or [...] time in the past 12 m [facility], were you homeless or living in a residential (including now)? No 06/18/2024 Personal Safety Answer Date Recorded Have you ever been in or are you currently in a harmful physical or emotional relationship or is someone making you feel afraid or unsafe? Denies 07/08/2024 Sex and Gender Information Value Date Recorded Sex Assigned at Not on file Legal Sex Male 6:11 AM CHANGE MANAGEMENT MANAGER Gender Identity Not on file Sexual Orientation Not on file Last Filed Vital Signs Vital Sign Reading Time Taken Comments Blood Pressure 145/83 07/09/2024 6:00 AM CHANGE MANAGEMENT MANAGER Pulse 91 07/09/2024 6:00 AM CHANGE MANAGEMENT MANAGER Temperature 36.5 C (97.7 F) 07/09/2024 6:31 AM CHANGE MANAGEMENT MANAGER Respiratory Rate 10 07/09/2024 6:00 AM CHANGE MANAGEMENT MANAGER Oxygen Saturation 100% 07/09/2024 6:00 AM CHANGE MANAGEMENT MANAGER Inhaled Oxygen Concentration - - Weight 79.8 kg (176 lb) 07/09/2024 2:16 AM CHANGE MANAGEMENT MANAGER Height 182.9 cm (6') 07/09/2024 2:16 AM CHANGE MANAGEMENT MANAGER Body Mass Index 23.87 07/09/2024 2:16 AM CHANGE MANAGEMENT MANAGER Plan of Treatment Not on file Procedures Procedure Name Priority Date/Time Associated Diagnosis Comments POCT RAPID HIV ANTIBODY COMMUNITY SCREENING-ISSA ELIGIBLE STAT 07/09/2024 5:32 AM CHANGE MANAGEMENT MANAGER SEPSIS LACTATE WITH REFLEX Timed 07/09/2024 4:33 AM CHANGE MANAGEMENT MANAGER ED PERIPHERAL LINE INSERTION Routine 07/09/2024 1:18 AM CHANGE MANAGEMENT MANAGER SEPSIS LACTATE WITH REFLEX Timed 07/09/2024 1:15 AM CHANGE MANAGEMENT MANAGER RPR STAT 07/09/2024 1:15 AM CHANGE MANAGEMENT MANAGER N. GONORRHOEAE/C. TRACHOMATIS AMPLIFICATION STAT 07/09/2024 1:02 AM CHANGE MANAGEMENT MANAGER URINALYSIS AND REFLEX TO MICROSCOPIC AND CULTURE STAT 07/09/2024 1:02 AM CHANGE MANAGEMENT MANAGER ED PERIPHERAL LINE INSERTION Routine 07/08/2024 10:11 PM CHANGE MANAGEMENT MANAGER CT CHEST ABDOMEN PELVIS W CONTRAST ED 07/08/2024 9:55 PM CHANGE MANAGEMENT MANAGER EGFR STAT 07/08/2024 8:56 PM CHANGE MANAGEMENT MANAGER DIFFERENTIAL AUTO STAT 07/08/2024 8:5 6 PM CHANGE MANAGEMENT MANAGER SEPSIS LACTATE WITH REFLEX STAT 07/08/2024 8:56 PM CHANGE MANAGEMENT MANAGER LIPASE STAT 07/08/2024 8:56 PM CHANGE MANAGEMENT MANAGER COMPREHENSIVE METABOLIC PANEL STAT 07/08/2024 8:56 PM CHANGE MANAGEMENT MANAGER CBC WITH AUTO DIFFERENTIAL STAT 07/08/2024 8:56 PM CHANGE MANAGEMENT MANAGER RESPIRATORY PATHOGEN PANEL STAT 07/08/2024 8:56 PM CHANGE MANAGEMENT MANAGER ECG 12-LEAD Routine 07/08/2024 8:28 PM CHANGE MANAGEMENT MANAGER XR CHEST 1 VIEW ED 07/08/2024 8:18 PM CHANGE MANAGEMENT MANAGER POCT GLUCOSE DEVICE Routine 06/28/2024 4 :24 PM CHANGE MANAGEMENT MANAGER POCT GLUCOSE DEVICE Routine 06/28/2024 1 2:30 PM CHANGE MANAGEMENT MANAGER POCT GLUCOSE DEVICE Routine 06/28/2024 7 :43 AM CHANGE MANAGEMENT MANAGER POCT GLUCOSE DEVICE Routine 06/28/2024 4 :01 AM CHANGE MANAGEMENT MANAGER POCT GLUCOSE DEVICE Routine 06/27/2024 1 1:28 PM CHANGE MANAGEMENT MANAGER EGFR Routine 06/27/2024 9:30 PM CHANGE MANAGEMENT MANAGER PHOSPHORUS Routine 06/27/2024 9:30 PM CHANGE MANAGEMENT MANAGER MAGNESIUM Routine 06/27/2024 9:30 PM CHANGE MANAGEMENT MANAGER BASIC METABOLIC PANEL Routine 06/27/2024 9:30 PM CHANGE MANAGEMENT MANAGER POCT GLUCOSE DEVICE Routine 06/27/2024 8 :39 PM CHANGE MANAGEMENT MANAGER POCT GLUCOSE DEVICE Routine 06/27/2024 5 :10 PM CHANGE MANAGEMENT MANAGER POCT GLUCOSE DEVICE Routine 06/27/2024 4 :27 PM CHANGE MANAGEMENT MANAGER POCT GLUCOSE DEVICE Routine 06/27/2024 1 :06 PM CHANGE MANAGEMENT MANAGER POCT GLUCOSE DEVICE Routine 06/27/2024 9 :59 AM CHANGE MANAGEMENT MANAGER EGFR Routine 06/26/2024 10:21 PM CHANGE MANAGEMENT MANAGER DIFFERENTIAL AUTO Routine 06/26/2024 10: 21 PM CHANGE MANAGEMENT MANAGER PHOSPHORUS Routine 06/26/2024 10:21 PM CHANGE MANAGEMENT MANAGER MAGNESIUM Routine 06/26/2024 10:21 PM CHANGE MANAGEMENT MANAGER CBC WITH AUTO DIFFERENTIAL Routine 06/26/2024 10:21 PM CHANGE MANAGEMENT MANAGER BASIC METABOLIC PANEL Routine 06/26/2024 10:21 PM CHANGE MANAGEMENT MANAGER HEPATITIS B SURFACE ANTIGEN Routine 06/26/2024 10:21 PM CHANGE MANAGEMENT MANAGER PHOSPHORUS Routine 06/26/2024 3:21 PM CHANGE MANAGEMENT MANAGER RPR Routine 06/26/2024 3:21 PM CHANGE MANAGEMENT MANAGER HEPATITIS C ANTIBODY Routine 06/26/2024 3:21 PM CHANGE MANAGEMENT MANAGER HIV 1/2 ANTIBODY PLUS P24 ANTIGEN Routine 06/26/2024 3:21 PM CHANGE MANAGEMENT MANAGER EGFR Routine 06/26/2024 12:16 AM CHANGE MANAGEMENT MANAGER PHOSPHORUS Routine 06/26/2024 12:16 AM CHANGE MANAGEMENT MANAGER MAGNESIUM Routine 06/26/2024 12:16 AM CHANGE MANAGEMENT MANAGER BASIC METABOLIC PANEL Routine 06/26/2024 12:16 AM CHANGE MANAGEMENT MANAGER POCT GLUCOSE DEVICE Routine 06/23/2024 1 1:36 AM CHANGE MANAGEMENT MANAGER CBC WITHOUT DIFFERENTIAL Timed 06/23/2024 9:07 AM CHANGE MANAGEMENT MANAGER VANCOMYCIN LEVEL TROUGH Routine 06/23/2024 9:00 AM CHANGE MANAGEMENT MANAGER EGFR Routine 06/23/2024 9:00 AM CHANGE MANAGEMENT MANAGER MAGNESIUM Routine 06/23/2024 9:00 AM CHANGE MANAGEMENT MANAGER PHOSPHORUS Routine 06/23/2024 9:00 AM CHANGE MANAGEMENT MANAGER BASIC METABOLIC PANEL Routine 06/23/2024 9:00 AM CHANGE MANAGEMENT MANAGER G TO GJ-TUBE REPLACEMENT IP Routine 06/22/2024 1:24 PM CHANGE MANAGEMENT MANAGER C. DIFFICILE TESTING Routine 06/21/2024 11:11 AM CHANGE MANAGEMENT MANAGER INFECTION PREVENTION VRE CULTURE Routine 06/21/2024 11:10 AM CHANGE MANAGEMENT MANAGER VANCOMYCIN LEVEL TROUGH Timed 06/21/2024 7:16 AM CHANGE MANAGEMENT MANAGER EGFR Routine 06/21/2024 5:03 AM CHANGE MANAGEMENT MANAGER DIFFERENTIAL AUTO Routine 06/21/2024 5:0 3 AM CHANGE MANAGEMENT MANAGER PHOSPHORUS Timed 06/21/2024 5:03 AM CHANGE MANAGEMENT MANAGER MAGNESIUM Routine 06/21/2024 5:03 AM CHANGE MANAGEMENT MANAGER COMPREHENSIVE METABOLIC PANEL Routine 06/21/2024 5:03 AM CHANGE MANAGEMENT MANAGER CBC WITH AUTO DIFFERENTIAL Routine 06/21/2024 5:03 AM CHANGE MANAGEMENT MANAGER MSSA/MRSA (STAPHYLOCOCCUS AUREUS) CULTURE Routine 06/20/2024 10:30 PM CHANGE MANAGEMENT MANAGER XR ABDOMEN AP 1 VIEW IP Routine 06/20/2024 10:29 AM CHANGE MANAGEMENT MANAGER URINALYSIS, MICROSCOPIC ONLY Routine 06/19/2024 9:34 PM CHANGE MANAGEMENT MANAGER URINALYSIS AND REFLEX TO MICROSCOPIC AND CULTURE Routine 06/19/2024 9:34 PM CHANGE MANAGEMENT MANAGER DIFFERENTIAL AUTO Routine 06/19/2024 9:2 8 PM CHANGE MANAGEMENT MANAGER CBC WITH AUTO DIFFERENTIAL Routine 06/19/2024 9:28 PM CHANGE MANAGEMENT MANAGER VALPROIC ACID LEVEL, TOTAL Timed 06/19/2024 9:28 PM CHANGE MANAGEMENT MANAGER LACOSAMIDE Routine 06/19/2024 9:28 PM CHANGE MANAGEMENT MANAGER RESPIRATORY PATHOGEN PANEL Routine 06/19/2024 9:10 PM CHANGE MANAGEMENT MANAGER AEROBIC CULTURE AND GRAM STAIN Routine 06/19/2024 6:53 PM CHANGE MANAGEMENT MANAGER XR CHEST 1 VIEW IP Routine 06/19/2024 6:47 PM CHANGE MANAGEMENT MANAGER RESPIRATORY PATHOGEN PANEL Routine 06/19/2024 6:46 PM CHANGE MANAGEMENT MANAGER XR ABDOMEN AP 1 VIEW IP Routine 06/19/2024 4:09 PM CHANGE MANAGEMENT MANAGER XR CHEST 1 VIEW IP Routine 06/19/2024 4:08 PM CHANGE MANAGEMENT MANAGER EGFR Timed 06/19/2024 2:47 PM CHANGE MANAGEMENT MANAGER DIFFERENTIAL AUTO Timed 06/19/2024 2:4 7 PM CHANGE MANAGEMENT MANAGER PHOSPHORUS Timed 06/19/2024 2:47 PM CHANGE MANAGEMENT MANAGER MAGNESIUM Timed 06/19/2024 2:47 PM CHANGE MANAGEMENT MANAGER COMPREHENSIVE METABOLIC PANEL Timed 06/19/2024 2:47 PM CHANGE MANAGEMENT MANAGER CBC WITH AUTO DIFFERENTIAL Timed 06/19/2024 2:47 PM CHANGE MANAGEMENT MANAGER POCT GLUCOSE DEVICE Routine 06/19/2024 2 :25 PM CHANGE MANAGEMENT MANAGER XR ABDOMEN AP 1 VIEW IP Routine 06/16/2024 6:16 PM CHANGE MANAGEMENT MANAGER EGFR Routine 06/16/2024 12:42 PM CHANGE MANAGEMENT MANAGER DIFFERENTIAL AUTO Routine 06/16/2024 12: 42 PM CHANGE MANAGEMENT MANAGER PHOSPHORUS Routine 06/16/2024 12:42 PM CHANGE MANAGEMENT MANAGER MAGNESIUM Routine 06/16/2024 12:42 PM CHANGE MANAGEMENT MANAGER COMPREHENSIVE METABOLIC PANEL Routine 06/16/2024 12:42 PM CHANGE MANAGEMENT MANAGER CBC WITH AUTO DIFFERENTIAL Routine 06/16/2024 12:42 PM CHANGE MANAGEMENT MANAGER XR ABDOMEN AP 1 VIEW ED Urgent/IP Urgent 06/15/2024 1:57 AM CHANGE MANAGEMENT MANAGER EGFR Routine 06/13/2024 4:59 AM CHANGE MANAGEMENT MANAGER DIFFERENTIAL AUTO Routine 06/13/2024 4: 59 AM CHANGE MANAGEMENT MANAGER VALPROIC ACID LEVEL, TOTAL Routine 06/13/2024 4:59 AM CHANGE MANAGEMENT MANAGER CBC WITH AUTO DIFFERENTIAL Routine 06/13/2024 4:59 AM CHANGE MANAGEMENT MANAGER PHOSPHORUS Routine 06/13/2024 4:59 AM CHANGE MANAGEMENT MANAGER MAGNESIUM Routine 06/13/2024 4:59 AM CHANGE MANAGEMENT MANAGER COMPREHENSIVE METABOLIC PANEL Routine 06/13/2024 4:59 AM CHANGE MANAGEMENT MANAGER LACOSAMIDE Routine 06/13/2024 4:59 AM CHANGE MANAGEMENT MANAGER BLOOD CULTURE Routine 06/13/2024 4:59 AM CHANGE MANAGEMENT MANAGER TSH Routine 06/12/2024 3:51 PM CHANGE MANAGEMENT MANAGER DIFFERENTIAL AUTO Routine 06/12/2024 3:3 0 PM CHANGE MANAGEMENT MANAGER CBC WITH AUTO DIFFERENTIAL Routine 06/12/2024 3:30 PM CHANGE MANAGEMENT MANAGER HEMOGLOBIN A1C Routine 06/12/2024 3:30 PM CHANGE MANAGEMENT MANAGER TROPONIN I HIGH-SENSITIVITY 4-HOUR Timed 06/12/2024 3:27 PM CHANGE MANAGEMENT MANAGER XR CHEST 1 VIEW ED 06/12/2024 2:47 PM CHANGE MANAGEMENT MANAGER URINALYSIS AND REFLEX TO MICROSCOPIC AND CULTURE STAT 06/12/2024 2:38 PM CHANGE MANAGEMENT MANAGER DIFFERENTIAL AUTO STAT 06/12/2024 2:2 3 PM CHANGE MANAGEMENT MANAGER CBC WITH AUTO DIFFERENTIAL STAT 06/12/2024 2:23 PM CHANGE MANAGEMENT MANAGER TROPONIN I HIGH-SENSITIVITY 2-HOUR Timed 06/12/2024 1:56 PM CHANGE MANAGEMENT MANAGER CT ABDOMEN PELVIS W CONTRAST ED 06/12/2024 12:22 PM CHANGE MANAGEMENT MANAGER ED PERIPHERAL LINE INSERTION Routine 06/12/2024 11:50 AM CHANGE MANAGEMENT MANAGER INFLUENZA A/B, RSV, AND COVID-19 PCR Routine 06/12/2024 11:39 AM CHANGE MANAGEMENT MANAGER POCT CREATININE - DEVICE Routine 06/12/2024 11:29 AM CHANGE MANAGEMENT MANAGER EGFR STAT 06/12/2024 11:22 AM CHANGE MANAGEMENT MANAGER DIFFERENTIAL AUTO STAT 06/12/2024 11: 22 AM CHANGE MANAGEMENT MANAGER TROPONIN I HIGH-SENSITIVITY SERIES (BASELINE, 2HR, 4HR, 6HR) STAT 06/12/2024 11:22 AM CHANGE MANAGEMENT MANAGER LIPASE STAT 06/12/2024 11:22 AM CHANGE MANAGEMENT MANAGER CBC WITH AUTO DIFFERENTIAL STAT 06/12/2024 11:22 AM CHANGE MANAGEMENT MANAGER COMPREHENSIVE METABOLIC PANEL STAT 06/12/2024 11:22 AM CHANGE MANAGEMENT MANAGER VALPROIC ACID LEVEL, TOTAL STAT 06/12/2024 11:22 AM CHANGE MANAGEMENT MANAGER ECG 12-LEAD Routine 06/12/2024 11:01 AM CHANGE MANAGEMENT MANAGER TNI WITH LIPID PANEL Routine 08/24/2017 4:57 PM CDT from Last 3 Months or Most Recently Relevant to Health Maintenance Results * POCT Rapid HIV Antibody Community Screening-Issa Eligible (07/09/2024 5:32 AM CHANGE MANAGEMENT MANAGER) Rapid HIV, POC Negative Negative Lot Number [id number] QC Control Line Acceptable Blood 07/09/2024 5:32 AM CHANGE MANAGEMENT MANAGER Naa Tam MD POINT OF CARE TEST ORDER NICHOLE Final Result * Sepsis Lactate w/ Reflex (07/09/2024 4:33 AM CHANGE MANAGEMENT MANAGER) Pathologist [facility] Sepsis Lactate 2.0 0.7 - 2.0 mmol/L Blood 07/09/2024 4:33 AM CHANGE MANAGEMENT MANAGER 07/09/2024 4:42 AM CHANGE MANAGEMENT MANAGER Naa Tam MD LAB BLOOD ORDERABLES Fin al Result [facility] Department [place] [address] * ED PERIPHERAL LINE INSERTION (07/09/2024 1:18 AM CHANGE MANAGEMENT MANAGER) Narrative Cherie Damian MD - 07/09/2024 1:18 AM CHANGE MANAGEMENT MANAGER Atul Barba MD 07/09/2024 1:18 AM Peripheral [...] Sepsis Lactate w/ Reflex (07/09/2024 1:15 AM CHANGE MANAGEMENT MANAGER) [facility] Sepsis Lactate 2.8(H) 0.7 - 2.0 mmol/L Blood 07/09/2024 1:15 AM CHANGE MANAGEMENT MANAGER 07/09/2024 1:46 AM CHANGE MANAGEMENT MANAGER Naa Tam MD LAB BLOOD ORDERABLES Fin al Result Performing Organization Address [facility]/ZIP Co de Phone Number [facility] Department [place] [address] * RPR Blood (07/09/2024 1:15 AM CHANGE MANAGEMENT MANAGER) [facility] RPR Nonreactive Nonreactive Blood 07/09/2024 1:15 AM CHANGE MANAGEMENT MANAGER 07/09/2024 1:40 AM CHANGE MANAGEMENT MANAGER Result [facility] Naa Tam MD LAB MICROBIOLOGY - GENER AL ORDERABLES Final Result Performing Organization Address [facility] de Phone Number [facility] Department [place] [address] * N. gonorrhoeae/C. trachomatis Amplification Urine (07/09/2024 1:02 AM CHANGE MANAGEMENT MANAGER) [facility] C. trachomatis Not Detected Not Detected [facility] N. gonorrhoeae Not Detected Not Detected [facility] Comment: Interpretive Data This assay detects Chlamydia trachomatis and Neisseria gonorrhoeae by nucleic acid amplification testing (NAAT). This assay has been cleared by the [place] Food and Drug administration. The performance characteristics of this test have been verified by the [facility] Molecular Infectious Disease laboratory. The performance characteristics of this test have not been evaluated in individuals less than 14 years of age. Current Interpretive Data last revised 2023. Urine (None) 07/09/2024 1:02 AM CHANGE MANAGEMENT MANAGER 07/09/2024 1:35 AM CHANGE MANAGEMENT MANAGER us Naa Tam MD LAB MICROBIOLOGY - GENER AL ORDERABLES Final Result Performing Organization Address City/[facility]/ZIP Co de Phone Number [facility] Department [place] [address] [facility] * (ABNORMAL) Urinalysis reflex to microscopic and culture Urine, clean voided (07/09/2024 1:02 AM CHANGE MANAGEMENT MANAGER) Color, ur Straw Yellow Clarity, ur Clear Clear [facility] Specific gravity, ur >1.042(H) 1.003 - 1.030 [facility] pH, urine 7.5 [facility] Comment: Interpretive Data U rine pH is affected by diet, medications, systemic acid-base disturbances, and renal tubular function. pH may affect urinary stone formation. For example, urine pH below 6.0 may help reduce the tendency for calcium phosphate stones and pH greater than 6.0 may reduce the tendency for uric acid stone formation. Source: [facility] Current Interpretive Data was last revised on 2017 Protein, ur ql Trace Negative [facility] Glucose, ur ql Negative Negative [facility] Ketones, ur Negative Negative [facility] Bilirubin, ur Negative Negative [facility] Blood, ur Negative Negative [facility] Urobilinogen, ur <2.0 <2.0 mg/dL [facility] Nitrite, ur Negative Negative [facility] Leukocyte esterase, ur Negative Negative [facility] UA reflex comment Reflex conditions for microscopic UA and culture not met. [facility] Urine, clean voided 07/09/2024 1:02 AM CHANGE MANAGEMENT MANAGER 07/09/2024 1:15 AM CHANGE MANAGEMENT MANAGER us Naa Tam MD LAB MICROBIOLOGY - GENER AL ORDERABLES Final Result Performing Organization Address [facility] Co de Phone Number [facility] Department [place] [address] * ED PERIPHERAL LINE INSERTION (07/08/2024 10:11 PM CHANGE MANAGEMENT MANAGER) Narrative Tri Martinez MD - 07/08/2024 10:11 PM CHANGE MANAGEMENT MANAGER Atul Barba MD 07/08/2024 10:12 PM Peripheral [...] Abdomen Pelvis W Contrast (07/08/2024 9:55 PM CHANGE MANAGEMENT MANAGER) Anatomical Region Laterality Modality Body N/A Computed Tomogra phy 07/08/2024 10:3 2 PM CHANGE MANAGEMENT MANAGER Impressions 07/09/2024 7:23 AM CHANGE MANAGEMENT MANAGER Liquid stool within the colon, indicative of diarrheal state. Otherwise, no acute abnormalities in the abdomen or pelvis. Dictated by: Delia Morton MD The radiology attending physician has personally reviewed this study, and had reviewed and/or edited this written report and agrees with it. Electronically signed by: Marlon Kohler M.D. Narrative 07/09/2024 7:23 AM CHANGE MANAGEMENT MANAGER EXAMINATION: Computed tomography of the chest, abdomen [...] Sepsis Lactate w/ Reflex (07/08/2024 8:56 PM CHANGE MANAGEMENT MANAGER) [facility] Sepsis Lactate 2.4(H) 0.7 - 2.0 mmol/L Blood 07/08/2024 8:56 PM CHANGE MANAGEMENT MANAGER 07/08/2024 9:24 PM CHANGE MANAGEMENT MANAGER us Naa Tam MD LAB BLOOD ORDERABLES Fin al Result [facility] Department of Laboratories [place], [place] [id number] * eGFR (07/08/2024 8:56 PM CHANGE MANAGEMENT MANAGER) [facility] eGFR >90 >=60 mL/min/1. 73 m2 [...] last reviewed 2021. Blood 07/08/2024 8:56 PM CHANGE MANAGEMENT MANAGER 07/08/2024 9:26 PM CHANGE MANAGEMENT MANAGER us Naa Tam MD LAB BLOOD ORDERABLES Fin al Result [facility] Department [place] [address] * Differential, auto (07/08/2024 8:56 PM CHANGE MANAGEMENT MANAGER) Neutrophil abs 4.4 1.5 - 6.5 K/cumm Imm gran abs 0.0 0.0 - 0.1 K/cumm [facility] Lymphocyte abs 2.6 0.8 - 3.3 K/cumm [facility] Monocyte abs 0.5 0.2 - 0.8 K/cumm [facility] Eosinophil abs 0.5 0.0 - 0.5 K/cumm [facility] Basophil abs 0.0 0.0 - 0.1 K/cumm [facility] Neutrophil pct 54.7 % [facility] Comment: Interpretive Data Percent cell count reference ranges are not reported, since discordance with absolute values may lead to misinterpretation of CBC data. Current Interpretive Data was last revised on 2017. Imm gran pct 0.2 % [facility] Comment: Interpretive Data Percent cell count reference ranges are not reported, since discordance with absolute values may lead to misinterpretation of CBC data. Current Interpretive Data was last revised on 2017. Lymphocyte pct 32.1 % [facility] Comment: Interpretive Data Percent cell count reference ranges are not reported, since discordance with absolute values may lead to misinterpretation of CBC data. Current Interpretive Data was last revised on 2017. Monocyte pct 6.6 % [facility] Comment: Interpretive Data Percent cell count reference ranges are not reported, since discordance with absolute values may lead to misinterpretation of CBC data. Current Interpretive Data was last revised on 2017. Eosinophil pct 6.0 % [facility] Comment: Interpretive Data Percent cell count reference ranges are not reported, since discordance with absolute values may lead to misinterpretation of CBC data. Current Interpretive Data was last revised on 2017. Basophil pct 0.4 % [facility] Comment: Interpretive Data Percent cell count reference ranges are not reported, since discordance with absolute values may lead to misinterpretation of CBC data. Current Interpretive Data was last revised on 2017. Blood 07/08/2024 8:56 PM CHANGE MANAGEMENT MANAGER 07/08/2024 9:27 PM CHANGE MANAGEMENT MANAGER us Naa Tam MD LAB BLOOD ORDERABLES Fin al Result [facility] Department [place] [address] * Respiratory pathogen panel Nasopharyngeal (07/08/2024 8:56 PM CHANGE MANAGEMENT MANAGER) Pathologist [facility] [place] Influenza A RNA Not Detected Not Detected Influenza B RNA Not Detected Not Detected [facility] RSV RNA Not Detected Not Detected [facility] COVID-19 RNA Not Detected Not Detected [facility] Coronavirus 229E RNA Not Detected Not Detected [facility] Coronavirus HKU1 RNA Not Detected Not Detected [facility] Coronavirus NL63 RNA Not Detected Not Detected [facility] Coronavirus OC43 RNA Not Detected Not Detected [facility] Adenovirus DNA Not Detected Not Detected [facility] Metapneumovirus RNA Not Detected Not Detected [facility] Rhinovirus/Enterov irus RNA Not Detected Not Detected [facility] Parainfluenza 1 RNA Not Detected Not Detected [facility] Parainfluenza 2 RNA Not Detected Not Detected [facility] Parainfluenza 3 RNA Not Detected Not Detected [facility] Parainfluenza 4 RNA Not Detected Not Detected [facility] B. pertussis DNA Not Detected Not Detected [facility] B. parapertussis DNA Not Detected Not Detected [facility] C. pneumoniae DNA Not Detected Not Detected [facility] M. pneumoniae DNA Not Detected Not Detected [facility] Nasopharyngeal 07/08/2024 8: 56 PM CHANGE MANAGEMENT MANAGER 07/08/2024 9:25 PM CHANGE MANAGEMENT MANAGER Narrative [facility] - 07/08/2024 10:16 PM CHANGE MANAGEMENT MANAGER Is the Patient experiencing symptoms consistent with COVID?->Yes Surveillance testing for transplant patient?->No Interpretive Data The [employer] Respiratory Panel (RP2.1) assay is a [...] assay has FDA clearance for testing of [employer] swabs. The performance of additional specimen types has been assessed by the performing laboratory. The performance characteristics of this assay have been determined by [facility] Molecular Infectious Disease Laboratory. Current interpretive data was last revised on 22. us Naa Tam MD LAB MICROBIOLOGY - [facility] ORDERABLES Final Result [facility] Department [place] [address] * (ABNORMAL) CBC with auto differential (07/08/2024 8:56 PM CHANGE MANAGEMENT MANAGER) Pathologist [facility] [place] WBC 8.0 3.8 - 9.9 K/cumm Hgb 14.4 13.0 - 17.5 g/dL [facility] Hct 43.3 38.9 - 50.3 % [facility] Plt 236 150 - 400 K/cumm [facility] MPV 12.4(H) 9.1 - 12.3 fL [facility] RBC 4.49 4.30 - 5.80 M/cumm [facility] MCV 96.4 81.3 - 96.4 fL [facility] MCH 32.1 27.1 - 33.3 pg [facility] MCHC 33.3 32.3 - 35.7 g/dL [facility] RDW CV 13.5 11.1 - 14.9 % [facility] RDW SD 47.9 35.7 - 48.1 fL [facility] NRBC abs 0.00 0.00 - 0.01 K/cumm [facility] Blood 07/08/2024 8:56 PM CHANGE MANAGEMENT MANAGER 07/08/2024 9:27 PM CHANGE MANAGEMENT MANAGER Naa Tam MD LAB BLOOD ORDERABLES Fin al Result Performing Organization Address City/[facility]/ZIP Co de Phone Number [facility] Department [place] [address] * Lipase (07/08/2024 8:56 PM CHANGE MANAGEMENT MANAGER) Pathologist [facility] [place] Lipase 32 10 - 99 Units/L Blood 07/08/2024 8:56 PM CHANGE MANAGEMENT MANAGER 07/08/2024 9:26 PM CHANGE MANAGEMENT MANAGER us Naa Tam MD LAB BLOOD ORDERABLES Fin al Result Performing Organization Address [facility] de Phone Number [facility] Department [place] [address] * (ABNORMAL) Comprehensive metabolic panel (07/08/2024 8:56 PM CHANGE MANAGEMENT MANAGER) [facility] Sodium 141 135 - 145 mmol/L Potassium, pl 4.5 3.3 - 4.9 mmol/L [facility] Chloride 102 97 - 110 mmol/L [facility] CO2 28 22 - 32 mmol/L [facility] Anion gap 11 2 - 15 mmol/L [facility] BUN 15 6 - 25 mg/dL [facility] Creatinine 0.63(L) 0.80 - 1.30 mg/dL [facility] Glucose 110 70 - 199 mg/dL [facility] Comment: Interpretive Data Fasting glucose >/= 126 [...] 2022. Calcium 10.1 8.5 - 10.3 mg/dL [facility] Bilirubin, total 0.2 0.1 - 1.2 mg/dL [facility] Protein, pl 8.0 6.5 - 8.5 g/dL [facility] Albumin 4.1 3.5 - 5.0 g/dL [facility] Alk phos 110 40 - 130 Units/L [facility] ALT 28 7 - 55 Units/L [facility] AST 26 10 - 50 Units/L [facility] Blood 07/08/2024 8:56 PM CHANGE MANAGEMENT MANAGER 07/08/2024 9:26 PM CHANGE MANAGEMENT MANAGER us Naa Tam MD LAB BLOOD ORDERABLES Fin al Result Performing Organization Address [facility] Co de Phone Number [facility] Department [place] [address] * ECG 12-LEAD (07/08/2024 8:28 PM CHANGE MANAGEMENT MANAGER) Narrative [facility] - 07/08/2024 8:28 PM CHANGE MANAGEMENT MANAGER Naa Tam MD 07/08/2024 8:30 PM ECG [...] ORDERABLES Final Re sult Performing Organization Address City/[facility]/ZIP Co de Phone Number [facility] * XR Chest 1 View (07/08/2024 8:18 PM CHANGE MANAGEMENT MANAGER) Anatomical Region Laterality Modality Body, Chest N/A Computed Radiogr aphy 07/08/2024 8:28 PM CHANGE MANAGEMENT MANAGER Impressions 07/08/2024 9:56 PM CHANGE MANAGEMENT MANAGER Comparison is made to chest graft dated [...] Sekou Wolf M.D. Narrative 07/08/2024 9:56 PM CHANGE MANAGEMENT MANAGER EXAMINATION: 1 view chest radiograph Procedure Note [...] Result * POCT glucose (06/28/2024 4:24 PM CHANGE MANAGEMENT MANAGER) Glucose, POC 191 70 - 199 mg/dL Blood 06/28/2024 4:24 PM CHANGE MANAGEMENT MANAGER 06/28/2024 4:24 PM CHANGE MANAGEMENT MANAGER us Kami Dupont MD LAB POCT ORDERABLES - DEV ICE Final Result [facility] Department [place] [address] * POCT glucose (06/28/2024 12:30 PM CHANGE MANAGEMENT MANAGER) Glucose, POC 197 70 - 199 mg/dL Blood 06/28/2024 12:3 0 PM CHANGE MANAGEMENT MANAGER 06/28/2024 12:30 PM CHANGE MANAGEMENT MANAGER Kami Dupont MD LAB POCT ORDERABLES - DEV ICE Final Result Performing Organization Address City/[facility] Co de Phone Number [facility] [place] [address] * POCT glucose (06/28/2024 7:43 AM CHANGE MANAGEMENT MANAGER) Glucose, POC 191 70 - 199 mg/dL Blood 06/28/2024 7:43 AM CHANGE MANAGEMENT MANAGER 06/28/2024 7:43 AM CHANGE MANAGEMENT MANAGER Kami Dupont MD LAB POCT ORDERABLES - DEV ICE Final Result Performing Organization Address [facility] Co de Phone Number [facility] [place] [address] * POCT glucose (06/28/2024 4:01 AM CHANGE MANAGEMENT MANAGER) Glucose, POC 173 70 - 199 mg/dL Blood 06/28/2024 4:01 AM CHANGE MANAGEMENT MANAGER 06/28/2024 4:01 AM CHANGE MANAGEMENT MANAGER Kami Dupont MD LAB POCT ORDERABLES - DEV ICE Final Result Performing Organization Address [facility] de Phone Number [facility] [place] [address] * (ABNORMAL) POCT glucose (06/27/2024 11:28 PM CHANGE MANAGEMENT MANAGER) Glucose, POC 220(H) 70 - 199 mg/dL Comment:Use Protocol Glucose comment 1 Use Protocol [facility] Blood 06/27/2024 11:2 8 PM CHANGE MANAGEMENT MANAGER 06/27/2024 11:28 PM CHANGE MANAGEMENT MANAGER Kami Dupont MD LAB POCT ORDERABLES - DEV ICE Final Result Performing Organization Address [facility] Co de Phone Number [facility] [place] [address] * eGFR (06/27/2024 9:30 PM CHANGE MANAGEMENT MANAGER) eGFR >90 >=60 mL/min/1. 73 m2 Comment: [...] last reviewed 2021. Blood 06/27/2024 9:30 PM CHANGE MANAGEMENT MANAGER 06/27/2024 9:45 PM CHANGE MANAGEMENT MANAGER Kami Dupont MD LAB BLOOD ORDERABLES Lulu l Result Performing Organization Address [facility]/ZIP Co de Phone Number [facility] Department [place] [address] * Phosphorus (06/27/2024 9:30 PM CHANGE MANAGEMENT MANAGER) Phosphorus, pl 3.3 2.3 - 4.5 mg/dL Comment:Repeated and Verifie d Blood 06/27/2024 9:30 PM CHANGE MANAGEMENT MANAGER 06/27/2024 9:45 PM CHANGE MANAGEMENT MANAGER Kami Dupont MD LAB BLOOD ORDERABLES Lulu l Result Performing Organization Address City/[facility] Co de Phone Number [facility] [place] [address] * Magnesium (06/27/2024 9:30 PM CHANGE MANAGEMENT MANAGER) Pathologist [facility] [place] Magnesium 1.9 1.4 - 2.5 mg/dL Blood 06/27/2024 9:30 PM CHANGE MANAGEMENT MANAGER 06/27/2024 9:45 PM CHANGE MANAGEMENT MANAGER Kami Dupont MD LAB BLOOD ORDERABLES Lulu l Result Performing Organization Address [facility] de Phone Number [facility] [place] [address] * (ABNORMAL) Basic metabolic panel (06/27/2024 9:30 PM CHANGE MANAGEMENT MANAGER) Pathologist [facility] [place] Sodium 141 135 - 145 mmol/L Potassium, pl 4.4 3.3 - 4.9 mmol/L [facility] Chloride 105 97 - 110 mmol/L [facility] CO2 28 22 - 32 mmol/L [facility] Anion gap 8 2 - 15 mmol/L [facility] BUN 9 6 - 25 mg/dL [facility] Creatinine 0.47(L) 0.80 - 1.30 mg/dL [facility] Glucose 208(H) 70 - 199 mg/dL [facility] Comment: Interpretive Data Fasting glucose >/= 126 [...] 2022. Calcium 8.9 8.5 - 10.3 mg/dL [facility] Blood 06/27/2024 9:30 PM CHANGE MANAGEMENT MANAGER 06/27/2024 9:45 PM CHANGE MANAGEMENT MANAGER Kami Dupont MD LAB BLOOD ORDERABLES Lulu l Result Performing Organization Address City/[facility] Co de Phone Number [facility] [place] [address] * POCT glucose (06/27/2024 8:39 PM CHANGE MANAGEMENT MANAGER) Glucose, POC 195 70 - 199 mg/dL Blood 06/27/2024 8:39 PM CHANGE MANAGEMENT MANAGER 06/27/2024 8:39 PM CHANGE MANAGEMENT MANAGER Kami Dupont MD LAB POCT ORDERABLES - DEV ICE Final Result Performing Organization Address [facility] Co de Phone Number [facility] [place] [address] * POCT glucose (06/27/2024 5:10 PM CHANGE MANAGEMENT MANAGER) Glucose, POC 194 70 - 199 mg/dL Blood 06/27/2024 5:10 PM CHANGE MANAGEMENT MANAGER 06/27/2024 5:10 PM CHANGE MANAGEMENT MANAGER Kami Dupont MD LAB POCT ORDERABLES - DEV ICE Final Result Performing Organization Address [facility] Co de Phone Number [facility] [place] [address] * (ABNORMAL) POCT glucose (06/27/2024 4:27 PM CHANGE MANAGEMENT MANAGER) Glucose, POC 224(H) 70 - 199 mg/dL Blood 06/27/2024 4:27 PM CHANGE MANAGEMENT MANAGER 06/27/2024 4:27 PM CHANGE MANAGEMENT MANAGER us Kami Dupont MD LAB POCT ORDERABLES - DEV ICE Final Result Performing Organization Address [facility] de Phone Number [facility] [place] [address] * POCT glucose (06/27/2024 1:06 PM CHANGE MANAGEMENT MANAGER) Glucose, POC 173 70 - 199 mg/dL Blood 06/27/2024 1:06 PM CHANGE MANAGEMENT MANAGER 06/27/2024 1:06 PM CHANGE MANAGEMENT MANAGER Kami Dupont MD LAB POCT ORDERABLES - DEV ICE Final Result Performing Organization Address [facility] de Phone Number [facility] [place] [address] * POCT glucose (06/27/2024 9:59 AM CHANGE MANAGEMENT MANAGER) Glucose, POC 158 70 - 199 mg/dL Blood 06/27/2024 9:59 AM CHANGE MANAGEMENT MANAGER 06/27/2024 9:59 AM CHANGE MANAGEMENT MANAGER Kami Dupont MD LAB POCT ORDERABLES - DEV ICE Final Result Performing Organization Address [facility] de Phone Number [facility] [place] [address] * eGFR (06/26/2024 10:21 PM CHANGE MANAGEMENT MANAGER) eGFR >90 >=60 mL/min/1. 73 m2 Comment: [...] reviewed 2021. Blood 06/26/2024 10:2 1 PM CHANGE MANAGEMENT MANAGER 06/26/2024 10:53 PM CHANGE MANAGEMENT MANAGER us Kami Dupont MD LAB BLOOD ORDERABLES Lulu coely Result [facility] Department [place] [address] * Differential, auto (06/26/2024 10:21 PM CHANGE MANAGEMENT MANAGER) Pathologist [facility] [place] Neutrophil abs 5.0 1.5 - 6.5 K/cumm Imm gran abs 0.0 0.0 - 0.1 K/cumm [facility] Lymphocyte abs 2.4 0.8 - 3.3 K/cumm [facility] Monocyte abs 0.8 0.2 - 0.8 K/cumm [facility] Eosinophil abs 0.4 0.0 - 0.5 K/cumm [facility] Basophil abs 0.0 0.0 - 0.1 K/cumm [facility] Neutrophil pct 58.2 % [facility] Comment: Interpretive Data Percent cell count reference ranges are not reported, since discordance with absolute values may lead to misinterpretation of CBC data. Current Interpretive Data was last revised on 2017. Imm gran pct 0.3 % [facility] Comment: Interpretive Data Percent cell count reference ranges are not reported, since discordance with absolute values may lead to misinterpretation of CBC data. Current Interpretive Data was last revised on 2017. Lymphocyte pct 27.9 % [facility] Comment: Interpretive Data Percent cell count reference ranges are not reported, since discordance with absolute values may lead to misinterpretation of CBC data. Current Interpretive Data was last revised on 2017. Monocyte pct 9.2 % [facility] Comment: Interpretive Data Percent cell count reference ranges are not reported, since discordance with absolute values may lead to misinterpretation of CBC data. Current Interpretive Data was last revised on 2017. Eosinophil pct 4.1 % [facility] Comment: Interpretive Data Percent cell count reference ranges are not reported, since discordance with absolute values may lead to misinterpretation of CBC data. Current Interpretive Data was last revised on 2017. Basophil pct 0.3 % [facility] Comment: Interpretive Data Percent cell count reference ranges are not reported, since discordance with absolute values may lead to misinterpretation of CBC data. Current Interpretive Data was last revised on 2017. Blood 06/26/2024 10:2 1 PM CHANGE MANAGEMENT MANAGER 06/26/2024 10:53 PM CHANGE MANAGEMENT MANAGER us Kami Dupont MD LAB BLOOD ORDERABLES Lulu coley Result [facility] Department [place] [address] * (ABNORMAL) CBC with auto differential (06/26/2024 10:21 PM CHANGE MANAGEMENT MANAGER) WBC 8.6 3.8 - 9.9 K/cumm Hgb 13.1 13.0 - 17.5 g/dL [facility] Hct 39.1 38.9 - 50.3 % [facility] Plt 173 150 - 400 K/cumm [facility] MPV 13.1(H) 9.1 - 12.3 fL [facility] RBC 4.07(L) 4.30 - 5.80 M/cumm [facility] MCV 96.1 81.3 - 96.4 fL [facility] MCH 32.2 27.1 - 33.3 pg [facility] MCHC 33.5 32.3 - 35.7 g/dL [facility] RDW CV 13.5 11.1 - 14.9 % [facility] RDW SD 47.8 35.7 - 48.1 fL [facility] NRBC abs 0.00 0.00 - 0.01 K/cumm [facility] Blood 06/26/2024 10:2 1 PM CHANGE MANAGEMENT MANAGER 06/26/2024 10:53 PM CHANGE MANAGEMENT MANAGER Kami Dupont MD LAB BLOOD ORDERABLES Lulu l Result Performing Organization Address [facility] de Phone Number [facility] [place] [address] * Hepatitis B Surface Antigen Blood (06/26/2024 10:21 PM CHANGE MANAGEMENT MANAGER) Pathologist [facility] [place] HepBsAg Nonreactive Nonreactive Blood 06/26/2024 10:2 1 PM CHANGE MANAGEMENT MANAGER 06/26/2024 10:53 PM CHANGE MANAGEMENT MANAGER Kami Dupont MD LAB MICROBIOLOGY - GENERA L ORDERABLES Final Result Performing Organization Address [facility] de Phone Number [facility] [place] [address] * (ABNORMAL) Phosphorus (06/26/2024 10:21 PM CHANGE MANAGEMENT MANAGER) Pathologist [facility] [place] Phosphorus, pl <0.7(L) 2.3 - 4.5 mg/dL Comment:Repeated and Verifie d Blood 06/26/2024 10:2 1 PM CHANGE MANAGEMENT MANAGER 06/26/2024 10:53 PM CHANGE MANAGEMENT MANAGER Kami Dupnot MD LAB BLOOD ORDERABLES Lulu l Result Performing Organization Address [facility] de Phone Number [facility] [place] [address] * Magnesium (06/26/2024 10:21 PM CHANGE MANAGEMENT MANAGER) Pathologist [facility] [place] Magnesium 2.0 1.4 - 2.5 mg/dL Blood 06/26/2024 10:2 1 PM CHANGE MANAGEMENT MANAGER 06/26/2024 10:53 PM CHANGE MANAGEMENT MANAGER Kami Dupont MD LAB BLOOD ORDERABLES Lulu l Result Performing Organization Address City/[facility]/ZIP Co de Phone Number [facility] Department [place] [address] * (ABNORMAL) Basic metabolic panel (06/26/2024 10:21 PM CHANGE MANAGEMENT MANAGER) [facility] Sodium 141 135 - 145 mmol/L Potassium, pl 4.7 3.3 - 4.9 mmol/L [facility] Chloride 106 97 - 110 mmol/L [facility] CO2 28 22 - 32 mmol/L [facility] Anion gap 7 2 - 15 mmol/L [facility] BUN 11 6 - 25 mg/dL [facility] Creatinine 0.47(L) 0.80 - 1.30 mg/dL [facility] Glucose 213(H) 70 - 199 mg/dL [facility] Comment: Interpretive Data Fasting glucose >/= 126 [...] 2022. Calcium 9.3 8.5 - 10.3 mg/dL [facility] Blood 06/26/2024 10:2 1 PM CHANGE MANAGEMENT MANAGER 06/26/2024 10:53 PM CHANGE MANAGEMENT MANAGER Kami Dupont MD LAB BLOOD ORDERABLES Lulu l Result Performing Organization Address [facility]/ZIP Co de Phone Number [facility] Department [place] [address] * HIV 1/2 Antibody plus p24 Antigen Blood (06/26/2024 3:21 PM CHANGE MANAGEMENT MANAGER) HIV 1/2 ab + p24 ag Nonreactive Nonreactive Comment:Nonreactive for HIV- 1 antigen and HIV-1/HIV-2 antibodies. No laboratory evidence of HIV infection. If acute HIV infection is suspected, consider testing for HIV-1 RNA. Current interpretive data was last revised on 22. Blood 06/26/2024 3:21 PM CHANGE MANAGEMENT MANAGER 06/26/2024 3:41 PM CHANGE MANAGEMENT MANAGER Kami Dupont MD LAB MICROBIOLOGY - GENERA L ORDERABLES Final Result Performing Organization Address [facility] de Phone Number [facility] [place] [address] * Hepatitis C antibody Blood (06/26/2024 3:21 PM CHANGE MANAGEMENT MANAGER) Pathologist [facility] [place] Hep C Ab Nonreactive Nonreactive Comment:Antibodies to HCV no t detected. Does NOT exclude the possibility of recent exposure to HCV. Current interpretive data was last revised on 22 Blood 06/26/2024 3:21 PM CHANGE MANAGEMENT MANAGER 06/26/2024 3:41 PM CHANGE MANAGEMENT MANAGER Kami Dupont MD LAB MICROBIOLOGY - GENERA L ORDERABLES Final Result Performing Organization Address City/[facility] Co de Phone Number [facility] [place] [address] * RPR Blood (06/26/2024 3:21 PM CHANGE MANAGEMENT MANAGER) Pathologist [facility] [place] RPR Nonreactive Nonreactive Blood 06/26/2024 3:21 PM CHANGE MANAGEMENT MANAGER 06/26/2024 3:41 PM CHANGE MANAGEMENT MANAGER Kami Dupont MD LAB MICROBIOLOGY - GENERA L ORDERABLES Final Result Performing Organization Address [facility] de Phone Number [facility] Department [place] [address] * (ABNORMAL) Phosphorus (06/26/2024 3:21 PM CHANGE MANAGEMENT MANAGER) Phosphorus, pl 0.7(L) 2.3 - 4.5 mg/dL Comment:Repeated and Verifie d Blood 06/26/2024 3:21 PM CHANGE MANAGEMENT MANAGER 06/26/2024 3:41 PM CHANGE MANAGEMENT MANAGER us Kami Dupont MD LAB BLOOD ORDERABLES Lulu l Result Performing Organization Address City/[facility]/ZIP Co de Phone Number [facility] [place] [address] * eGFR (06/26/2024 12:16 AM CHANGE MANAGEMENT MANAGER) Pathologist [facility] [place] eGFR >90 [...] reviewed 2021. Blood 06/26/2024 12:1 6 AM CHANGE MANAGEMENT MANAGER 06/26/2024 12:39 AM CHANGE MANAGEMENT MANAGER us Patricia Bryant MD LAB BLOOD ORDERABLES Final Res ult [facility] [place] [address] * (ABNORMAL) Phosphorus (06/26/2024 12:16 AM CHANGE MANAGEMENT MANAGER) [facility] Phosphorus, pl <0.7(L) 2.3 - 4.5 mg/dL Comment:Repeated and Verifie d Blood 06/26/2024 12:1 6 AM CHANGE MANAGEMENT MANAGER 06/26/2024 12:39 AM CHANGE MANAGEMENT MANAGER Patricia Bryant MD LAB BLOOD ORDERABLES Final Res ult [facility] [place] [address] * Magnesium (06/26/2024 12:16 AM CHANGE MANAGEMENT MANAGER) [facility] Magnesium 1.9 1.4 - 2.5 mg/dL Blood 06/26/2024 12:1 6 AM CHANGE MANAGEMENT MANAGER 06/26/2024 12:39 AM CHANGE MANAGEMENT MANAGER Patricia Bryant MD LAB BLOOD ORDERABLES Final Res ult [facility] [place] [address] * (ABNORMAL) Basic metabolic panel (06/26/2024 12:16 AM CHANGE MANAGEMENT MANAGER) [facility] Sodium 142 135 - 145 mmol/L Potassium, pl 4.4 3.3 - 4.9 mmol/L [facility] Comment:Hemolyzed; Potassium value may be falsely elevated by as much as 0.3-0.5 mmol/L. Suggest redraw and reanalysis. Chloride 109 97 - 110 mmol/L [facility] CO2 29 22 - 32 mmol/L [facility] Anion gap 4 2 - 15 mmol/L [facility] BUN 13 6 - 25 mg/dL [facility] Creatinine 0.53(L) 0.80 - 1.30 mg/dL [facility] Glucose 177 70 - 199 mg/dL [facility] Comment: Interpretive Data Fasting glucose >/= 126 [...] 2022. Calcium 9.0 8.5 - 10.3 mg/dL [facility] Blood 06/26/2024 12:1 6 AM CHANGE MANAGEMENT MANAGER 06/26/2024 12:39 AM CHANGE MANAGEMENT MANAGER Patricia Bryant MD LAB BLOOD ORDERABLES Final Res ult Performing Organization Address [facility] Co de Phone Number [facility] Department [place] [address] * POCT glucose (06/23/2024 11:36 AM CHANGE MANAGEMENT MANAGER) Pathologist [facility] [place] Glucose, POC 95 70 - 199 mg/dL Blood 06/23/2024 11:3 6 AM CHANGE MANAGEMENT MANAGER 06/23/2024 11:36 AM CHANGE MANAGEMENT MANAGER Patricia Bryant MD LAB POCT ORDERABLES - DEVICE F inal Result Performing Organization Address [facility] Co de Phone Number [facility] Department [place] [address] * (ABNORMAL) CBC without differential (06/23/2024 9:07 AM CHANGE MANAGEMENT MANAGER) [facility] WBC 4.7 3.8 - 9.9 K/cumm Hgb 12.5(L) 13.0 - 17.5 g/dL [facility] Hct 37.4(L) 38.9 - 50.3 % [facility] Plt 145(L) 150 - 400 K/cumm [facility] MPV 12.6(H) 9.1 - 12.3 fL [facility] RBC 3.94(L) 4.30 - 5.80 M/cumm [facility] MCV 94.9 81.3 - 96.4 fL [facility] MCH 31.7 27.1 - 33.3 pg [facility] MCHC 33.4 32.3 - 35.7 g/dL [facility] RDW CV 12.9 11.1 - 14.9 % [facility] RDW SD 45.1 35.7 - 48.1 fL [facility] NRBC abs 0.00 0.00 - 0.01 K/cumm [facility] Blood 06/23/2024 9:07 AM CHANGE MANAGEMENT MANAGER 06/23/2024 9:28 AM CHANGE MANAGEMENT MANAGER us Patricia Bryant MD LAB BLOOD ORDERABLES Final Res ult [facility] Department [place] [address] * eGFR (06/23/2024 9:00 AM CHANGE MANAGEMENT MANAGER) eGFR >90 >=60 mL/min/1. 73 m2 Comment: [...] last reviewed 2021. Blood 06/23/2024 9:00 AM CHANGE MANAGEMENT MANAGER 06/23/2024 10:59 AM CHANGE MANAGEMENT MANAGER Result Rose Bryant MD LAB BLOOD ORDERABLES Final Res ult Performing Organization Address [facility] de Phone Number [facility] [place] [address] * Phosphorus (06/23/2024 9:00 AM CHANGE MANAGEMENT MANAGER) Phosphorus, pl 2.3 2.3 - 4.5 mg/dL Blood 06/23/2024 9:00 AM CHANGE MANAGEMENT MANAGER 06/23/2024 10:59 AM CHANGE MANAGEMENT MANAGER Result Rose Bryant MD LAB BLOOD ORDERABLES Final Res ult Performing Organization Address [facility] de Phone Number [facility] [place] [address] * Magnesium (06/23/2024 9:00 AM CHANGE MANAGEMENT MANAGER) Magnesium 1.7 1.4 - 2.5 mg/dL Blood 06/23/2024 9:00 AM CHANGE MANAGEMENT MANAGER 06/23/2024 10:59 AM CHANGE MANAGEMENT MANAGER Result Rose Bryant MD LAB BLOOD ORDERABLES Final Res ult Performing Organization Address [facility] [place] [address] * Vancomycin level trough (06/23/2024 9:00 AM CHANGE MANAGEMENT MANAGER) Vancomycin trough 15.2 10.0 - 20.0 mcg/mL Blood 06/23/2024 9:00 AM CHANGE MANAGEMENT MANAGER 06/23/2024 10:59 AM CHANGE MANAGEMENT MANAGER Result Rose Bryant MD LAB BLOOD ORDERABLES Final Res ult Performing Organization Address City/[facility] Co de Phone Number [facility] Department [place] [address] * (ABNORMAL) Basic metabolic panel (06/23/2024 9:00 AM CHANGE MANAGEMENT MANAGER) Sodium 143 135 - 145 mmol/L Potassium, pl 3.7 3.3 - 4.9 mmol/L [facility] Chloride 108 97 - 110 mmol/L [facility] CO2 28 22 - 32 mmol/L [facility] Anion gap 7 2 - 15 mmol/L [facility] BUN 3(L) 6 - 25 mg/dL [facility] Creatinine 0.50(L) 0.80 - 1.30 mg/dL [facility] Glucose 271(H) 70 - 199 mg/dL [facility] Comment: Interpretive Data Fasting glucose >/= 126 [...] 2022. Calcium 9.0 8.5 - 10.3 mg/dL [facility] Blood 06/23/2024 9:00 AM CHANGE MANAGEMENT MANAGER 06/23/2024 10:59 AM CHANGE MANAGEMENT MANAGER us Patricia Bryant MD LAB BLOOD ORDERABLES Final Res ult Performing Organization Address [facility]/ZIP Co de Phone Number [facility] Department [place] [address] * IR G To GJ-Tube Replacement (06/22/2024 1:24 PM CHANGE MANAGEMENT MANAGER) Anatomical Region Laterality Modality Body N/A X-Ray Angiograph y 06/22/2024 1:47 PM CHANGE MANAGEMENT MANAGER Impressions 06/22/2024 4:13 PM CHANGE MANAGEMENT MANAGER Successful percutaneous 18 Fr 45 cm gastrojejunostomy [...] Sean Hillman M.D. Narrative 06/22/2024 4:13 PM CHANGE MANAGEMENT MANAGER EXAMINATION: GASTROJEJUNOSTOMY TUBE EXCHANGE HISTORY/INDICATION: 64 yo [...] procedure. TECHNIQUE: Prior to beginning the procedure, Dillard Protocol was performed to confirm the patient's [...] placed in the proximal jejunum. A 18 Montserratian, 45 cm long JELLY single/double lumen gastrojejunostomy [...] procedure. TECHNIQUE: Prior to beginning the procedure, Dillard Protocol was performed to confirm the patient's [...] placed in the proximal jejunum. A 18 Montserratian, 45 cm long JELLY single/double lumen gastrojejunostomy [...] C. difficile testing Stool (06/21/2024 11:11 AM CHANGE MANAGEMENT MANAGER) Pathologist [facility] Result Negative Negative Toxin Result Negative Negative [facility] C. diff result Negative, free toxin Negative, free toxin [facility] C. diff interp Negative for toxigenic Clostridioides (Clostridium) difficile. Analysis was performed using a glutamate dehydrogenase antigen detection assay combined with a C. difficile toxin detection assay. [facility] Stool 06/21/2024 11:1 1 AM CHANGE MANAGEMENT MANAGER 06/21/2024 12:55 PM CHANGE MANAGEMENT MANAGER Narrative [facility] - 06/21/2024 2:38 PM CHANGE MANAGEMENT MANAGER Testing for C. difficile is not recommended within 4 days of a negative result, 10 days of a positive, or 24 hours after laxative administration. If this order is clinically indicated, contact the lab and enter the passcode to complete this order.->[id number] Patricia Bryant MD LAB MICROBIOLOGY - GENERAL ORD ERABLES Final Result Performing Organization Address [facility]/ZIP Co de Phone Number [facility] Department [place] [address] * Infection Prevention VRE Culture Stool (06/21/2024 11:10 AM CHANGE MANAGEMENT MANAGER) Report Final Report: Negative Stool 06/21/2024 11:1 0 AM CHANGE MANAGEMENT MANAGER 06/21/2024 2:41 PM CHANGE MANAGEMENT MANAGER Narrative [facility] - 06/23/2024 11:15 PM CHANGE MANAGEMENT MANAGER Surveillance culture for Infection Prevention purposes only; results indicate colonization, not infection requiring treatment. Testing performed by [facility] ([phone]). Patricia Bryant MD LAB MICROBIOLOGY - GENERAL ORD ERABLES Final Result [facility] Department [place] [address] * Vancomycin level trough Draw trough 30 minutes prior to 4th dose. (06/21/2024 7:16 AM CHANGE MANAGEMENT MANAGER) Vancomycin trough 16.8 10.0 - 20.0 mcg/mL Blood 06/21/2024 7:16 AM CHANGE MANAGEMENT MANAGER 06/21/2024 7:27 AM CHANGE MANAGEMENT MANAGER Narrative [facility] - 06/21/2024 8:10 AM CHANGE MANAGEMENT MANAGER Draw trough 30 minutes prior to 4th dose. Patricia Bryant MD LAB BLOOD ORDERABLES Final Res ult [facility] Department [place] [address] * eGFR (06/21/2024 5:03 AM CHANGE MANAGEMENT MANAGER) eGFR >90 >=60 mL/min/1. 73 m2 Comment: [...] last reviewed 2021. Blood 06/21/2024 5:03 AM CHANGE MANAGEMENT MANAGER 06/21/2024 5:14 AM CHANGE MANAGEMENT MANAGER Patricia Bryant MD LAB BLOOD ORDERABLES Final Res ult Performing Organization Address City/[facility]/ZIP Co de Phone Number [facility] Department [place] [address] * Differential, auto (06/21/2024 5:03 AM CHANGE MANAGEMENT MANAGER) Neutrophil abs 1.7 1.5 - 6.5 K/cumm Imm gran abs 0.0 0.0 - 0.1 K/cumm [facility] Lymphocyte abs 1.7 0.8 - 3.3 K/cumm [facility] Monocyte abs 0.6 0.2 - 0.8 K/cumm [facility] Eosinophil abs 0.3 0.0 - 0.5 K/cumm [facility] Basophil abs 0.0 0.0 - 0.1 K/cumm [facility] Neutrophil pct 38.8 % [facility] Comment: Interpretive Data Percent cell count reference ranges are not reported, since discordance with absolute values may lead to misinterpretation of CBC data. Current Interpretive Data was last revised on 2017. Imm gran pct 0.2 % [facility] Comment: Interpretive Data Percent cell count reference ranges are not reported, since discordance with absolute values may lead to misinterpretation of CBC data. Current Interpretive Data was last revised on 2017. Lymphocyte pct 40.5 % [facility] Comment: Interpretive Data Percent cell count reference ranges are not reported, since discordance with absolute values may lead to misinterpretation of CBC data. Current Interpretive Data was last revised on 2017. Monocyte pct 13.4 % [facility] Comment: Interpretive Data Percent cell count reference ranges are not reported, since discordance with absolute values may lead to misinterpretation of CBC data. Current Interpretive Data was last revised on 2017. Eosinophil pct 6.6 % [facility] Comment: Interpretive Data Percent cell count reference ranges are not reported, since discordance with absolute values may lead to misinterpretation of CBC data. Current Interpretive Data was last revised on 2017. Basophil pct 0.5 % [facility] Comment: Interpretive Data Percent cell count reference ranges are not reported, since discordance with absolute values may lead to misinterpretation of CBC data. Current Interpretive Data was last revised on 2017. Blood 06/21/2024 5:03 AM CHANGE MANAGEMENT MANAGER 06/21/2024 5:14 AM CHANGE MANAGEMENT MANAGER us Patricia Bryant MD LAB BLOOD ORDERABLES Final Res ult [facility] Department [place] [address] * (ABNORMAL) CBC with auto differential (06/21/2024 5:03 AM CHANGE MANAGEMENT MANAGER) [facility] WBC 4.3 3.8 - 9.9 K/cumm Hgb 11.6(L) 13.0 - 17.5 g/dL [facility] Hct 34.5(L) 38.9 - 50.3 % [facility] Plt 132(L) 150 - 400 K/cumm [facility] MPV 11.3 9.1 - 12.3 fL [facility] RBC 3.53(L) 4.30 - 5.80 M/cumm [facility] MCV 97.7(H) 81.3 - 96.4 fL [facility] MCH 32.9 27.1 - 33.3 pg [facility] MCHC 33.6 32.3 - 35.7 g/dL [facility] RDW CV 13.4 11.1 - 14.9 % [facility] RDW SD 48.0 35.7 - 48.1 fL [facility] NRBC abs 0.00 0.00 - 0.01 K/cumm [facility] Blood 06/21/2024 5:03 AM CHANGE MANAGEMENT MANAGER 06/21/2024 5:14 AM CHANGE MANAGEMENT MANAGER Patricia Bryant MD LAB BLOOD ORDERABLES Final Res ult Performing Organization Address City/[facility] Co de Phone Number [facility] Department [place] [address] * Phosphorus (06/21/2024 5:03 AM CHANGE MANAGEMENT MANAGER) [facility] Phosphorus, pl 3.1 2.3 - 4.5 mg/dL Blood 06/21/2024 5:03 AM CHANGE MANAGEMENT MANAGER 06/21/2024 5:14 AM CHANGE MANAGEMENT MANAGER Patricia Bryant MD LAB BLOOD ORDERABLES Final Res ult [facility] Department [place] [address] * Magnesium (06/21/2024 5:03 AM CHANGE MANAGEMENT MANAGER) Magnesium 1.9 1.4 - 2.5 mg/dL Blood 06/21/2024 5:03 AM CHANGE MANAGEMENT MANAGER 06/21/2024 5:14 AM CHANGE MANAGEMENT MANAGER Patricia Bryant MD LAB BLOOD ORDERABLES Final Res ult [facility] Department [place] [address] * (ABNORMAL) Comprehensive metabolic panel (06/21/2024 5:03 AM CHANGE MANAGEMENT MANAGER) Pathologist [facility] [place] Sodium 145 135 - 145 mmol/L Potassium, pl 3.4 3.3 - 4.9 mmol/L [facility] Chloride 112(H) 97 - 110 mmol/L [facility] CO2 27 22 - 32 mmol/L [facility] Anion gap 6 2 - 15 mmol/L [facility] BUN 9 6 - 25 mg/dL [facility] Creatinine 0.57(L) 0.80 - 1.30 mg/dL [facility] Glucose 106 70 - 199 mg/dL [facility] Comment: Interpretive Data Fasting glucose >/= 126 [...] 2022. Calcium 8.6 8.5 - 10.3 mg/dL [facility] Bilirubin, total 0.2 0.1 - 1.2 mg/dL [facility] Protein, pl 5.6(L) 6.5 - 8.5 g/dL [facility] Albumin 2.7(L) 3.5 - 5.0 g/dL [facility] Alk phos 61 40 - 130 Units/L [facility] ALT 15 7 - 55 Units/L [facility] AST 25 10 - 50 Units/L [facility] Blood 06/21/2024 5:03 AM CHANGE MANAGEMENT MANAGER 06/21/2024 5:14 AM CHANGE MANAGEMENT MANAGER Patricia Bryant MD LAB BLOOD ORDERABLES Final Res ult Performing Organization Address [facility] Co de Phone Number [facility] Department [place] [address] * (ABNORMAL) MSSA/MRSA (Staphylococcus aureus) Culture Nasal (06/20/2024 10:30 PM CHANGE MANAGEMENT MANAGER) Report Final Report: Methicillin-resist ant Staphylococcus aureus Methicillin-resist ant Staphylococcus aureus #2 (.) Organism METHICILLIN-RESIST ANT STAPHYLOCOCCUS AUREUS [facility] Organism METHICILLIN-RESIST ANT STAPHYLOCOCCUS AUREUS [facility] Nasal 06/20/2024 10:3 0 PM CHANGE MANAGEMENT MANAGER 06/20/2024 10:43 PM CHANGE MANAGEMENT MANAGER Narrative [facility] - 06/23/2024 10:45 AM CHANGE MANAGEMENT MANAGER Testing performed by [facility] ([phone]). Patricia Bryant MD LAB MICROBIOLOGY - GENERAL ORD ERABLES Final Result Performing Organization Address [facility] de Phone Number [facility] Department [place] [address] * XR Abdomen Ap 1 Vw (06/20/2024 10:29 AM CHANGE MANAGEMENT MANAGER) Anatomical Region Laterality Modality Body, Abdomen N/A Computed Radiogr aphy 06/20/2024 10:5 3 AM CHANGE MANAGEMENT MANAGER Impressions 06/20/2024 11:51 AM CHANGE MANAGEMENT MANAGER Gastrostomy tube. Colonic distention is improved. No radiographic evidence of obstruction. Dictated by: Hunter Hernandez M.D (Ramanan). The radiology attending physician has personally reviewed this study, and had reviewed and/or edited this written report and agrees with it. Electronically signed by: Byron Moya M.D. Narrative 06/20/2024 11:51 AM CHANGE MANAGEMENT MANAGER EXAMINATION: Abdomen, one view. HISTORY: Abdominal distention. [...] and culture Urine, bladder (06/19/2024 9:34 PM CHANGE MANAGEMENT MANAGER) Color, ur Straw Yellow Clarity, ur Clear Clear [facility] Specific gravity, ur 1.021 1.003 - 1.030 [facility] pH, urine 7.0 [facility] Comment: Interpretive Data U rine pH is affected by diet, medications, systemic acid-base disturbances, and renal tubular function. pH may affect urinary stone formation. For example, urine pH below 6.0 may help reduce the tendency for calcium phosphate stones and pH greater than 6.0 may reduce the tendency for uric acid stone formation. Source: Plum (Formerly Ube) Current Interpretive Data was last revised on 2017 Protein, ur ql 1+(A) Negative [facility] Glucose, ur ql Negative Negative [facility] Ketones, ur Negative Negative [facility] Bilirubin, ur Negative Negative [facility] Blood, ur Negative Negative [facility] Urobilinogen, ur <2.0 <2.0 mg/dL [facility] Nitrite, ur Negative Negative [facility] Leukocyte esterase, ur Negative Negative [facility] UA reflex comment Reflex to microscopic UA will be performed. [facility] Urine, bladder 06/19/2024 9: 34 PM CHANGE MANAGEMENT MANAGER 06/19/2024 10:05 PM CHANGE MANAGEMENT MANAGER Patricia Bryant MD LAB MICROBIOLOGY - GENERAL ORD ERABLES Final Result Performing Organization Address [facility] Co de Phone Number [facility] Department [place] [address] * Urinalysis, microscopic only (06/19/2024 9:34 PM CHANGE MANAGEMENT MANAGER) Pathologist [facility] [place] WBC, ur 0-5 0 - 5 /HPF RBC, ur 0-2 0 - 2 /HPF [facility] Epithelial cells, squamous, ur 1-5 0 - 5 /HPF [facility] Culture Reflex Comment Reflex conditions for urine culture (WBC >10) not met. [facility] Urine, bladder 06/19/2024 9: 34 PM CHANGE MANAGEMENT MANAGER 06/19/2024 10:05 PM CHANGE MANAGEMENT MANAGER Patricia Bryant MD LAB URINE ORDERABLES Final Res ult Performing Organization Address [facility] de Phone Number [facility] Department [place] [address] * (ABNORMAL) Differential, auto (06/19/2024 9:28 PM CHANGE MANAGEMENT MANAGER) Pathologist [facility] Neutrophil abs 6.0 1.5 - 6.5 K/cumm Imm gran abs 0.0 0.0 - 0.1 K/cumm [facility] Lymphocyte abs 0.7(L) 0.8 - 3.3 K/cumm [facility] Monocyte abs 0.2 0.2 - 0.8 K/cumm [facility] Eosinophil abs 0.2 0.0 - 0.5 K/cumm [facility] Basophil abs 0.0 0.0 - 0.1 K/cumm [facility] Neutrophil pct 84.1 % [facility] Comment: Interpretive Data Percent cell count reference ranges are not reported, since discordance with absolute values may lead to misinterpretation of CBC data. Current Interpretive Data was last revised on 2017. Imm gran pct 0.4 % [facility] Comment: Interpretive Data Percent cell count reference ranges are not reported, since discordance with absolute values may lead to misinterpretation of CBC data. Current Interpretive Data was last revised on 2017. Lymphocyte pct 10.1 % [facility] Comment: Interpretive Data Percent cell count reference ranges are not reported, since discordance with absolute values may lead to misinterpretation of CBC data. Current Interpretive Data was last revised on 2017. Monocyte pct 2.9 % [facility] Comment: Interpretive Data Percent cell count reference ranges are not reported, since discordance with absolute values may lead to misinterpretation of CBC data. Current Interpretive Data was last revised on 2017. Eosinophil pct 2.4 % [facility] Comment: Interpretive Data Percent cell count reference ranges are not reported, since discordance with absolute values may lead to misinterpretation of CBC data. Current Interpretive Data was last revised on 2017. Basophil pct 0.1 % [facility] Comment: Interpretive Data Percent cell count reference ranges are not reported, since discordance with absolute values may lead to misinterpretation of CBC data. Current Interpretive Data was last revised on 2017. Blood 06/19/2024 9:28 PM CHANGE MANAGEMENT MANAGER 06/19/2024 10:38 PM CHANGE MANAGEMENT MANAGER us Patricia Bryant MD LAB BLOOD ORDERABLES Final Res ult [facility] Department [place] [address] * Lacosamide level (06/19/2024 9:28 PM CHANGE MANAGEMENT MANAGER) Lacosamide 9.6 1.0 - 10.0 mcg/mL [facility] Comment: ADDITIONAL INFORMATION This test was developed and its performance characteristics determined by [facility] in a manner consistent with CLIA requirements. This test has not been cleared or approved by the U.S. Food and Drug Administration. Test Performed by: [facility] Laboratories - [facility] [address] [place] [address] Photograph Mounter: Marianela Odonnell Ph.D.; CLIA# [id number] Blood 06/19/2024 9:28 PM CHANGE MANAGEMENT MANAGER 06/19/2024 11:01 PM CHANGE MANAGEMENT MANAGER Narrative [facility] - 06/22/2024 10:25 AM CHANGE MANAGEMENT MANAGER Please get level before lacosamide dose is given us Patricia Bryant MD LAB BLOOD ORDERABLES Final Res ult [facility] Department [place] [address] [place] [facility] * (ABNORMAL) CBC with auto differential (06/19/2024 9:28 PM CHANGE MANAGEMENT MANAGER) WBC 7.1 3.8 - 9.9 K/cumm Hgb 12.5(L) 13.0 - 17.5 g/dL [facility] Hct 37.0(L) 38.9 - 50.3 % [facility] Plt 152 150 - 400 K/cumm [facility] MPV 12.6(H) 9.1 - 12.3 fL [facility] RBC 3.90(L) 4.30 - 5.80 M/cumm [facility] MCV 94.9 81.3 - 96.4 fL [facility] MCH 32.1 27.1 - 33.3 pg [facility] MCHC 33.8 32.3 - 35.7 g/dL [facility] RDW CV 13.4 11.1 - 14.9 % [facility] RDW SD 46.8 35.7 - 48.1 fL [facility] NRBC abs 0.00 0.00 - 0.01 K/cumm [facility] Blood 06/19/2024 9:28 PM CHANGE MANAGEMENT MANAGER 06/19/2024 10:38 PM CHANGE MANAGEMENT MANAGER Result [facility] Patricia Bryant MD LAB BLOOD ORDERABLES Final Res ult Performing Organization Address City/[facility]/ZIP Co de Phone Number [facility] Department [place] [address] * Valproic acid level, total (06/19/2024 9:28 PM CHANGE MANAGEMENT MANAGER) [facility] Valproic Acid 76.0 50.0 - 100.0 mcg/mL Comment: Interpretive Data Therapeutic or toxic effects of anticonvulsant drugs may occur at different concentrations in different patients and the correlation between dose and clinical effect must be evaluated individually. Current interpretative data was last revised on 13. Blood 06/19/2024 9:28 PM CHANGE MANAGEMENT MANAGER 06/19/2024 10:39 PM CHANGE MANAGEMENT MANAGER Narrative [facility] - 06/19/2024 11:40 PM CHANGE MANAGEMENT MANAGER Please get level before dose is given Patricia Bryant MD LAB BLOOD ORDERABLES Final Res ult Performing Organization Address City/[facility] Co de Phone Number [facility] Department [place] [address] * Respiratory pathogen panel Nasopharyngeal (06/19/2024 9:10 PM CHANGE MANAGEMENT MANAGER) [facility] Influenza A RNA Not Detected Not Detected Influenza B RNA Not Detected Not Detected [facility] RSV RNA Not Detected Not Detected [facility] COVID-19 RNA Not Detected Not Detected [facility] Coronavirus 229E RNA Not Detected Not Detected [facility] Coronavirus HKU1 RNA Not Detected Not Detected [facility] Coronavirus NL63 RNA Not Detected Not Detected [facility] Coronavirus OC43 RNA Not Detected Not Detected [facility] Adenovirus DNA Not Detected Not Detected [facility] Metapneumovirus RNA Not Detected Not Detected [facility] Rhinovirus/Enterov irus RNA Not Detected Not Detected [facility] Parainfluenza 1 RNA Not Detected Not Detected [facility] Parainfluenza 2 RNA Not Detected Not Detected [facility] Parainfluenza 3 RNA Not Detected Not Detected [facility] Parainfluenza 4 RNA Not Detected Not Detected [facility] B. pertussis DNA Not Detected Not Detected [facility] B. parapertussis DNA Not Detected Not Detected [facility] C. pneumoniae DNA Not Detected Not Detected [facility] M. pneumoniae DNA Not Detected Not Detected [facility] Nasopharyngeal 06/19/2024 9: 10 PM CHANGE MANAGEMENT MANAGER 06/19/2024 10:06 PM CHANGE MANAGEMENT MANAGER Narrative [facility] - 06/19/2024 11:35 PM CHANGE MANAGEMENT MANAGER Is the Patient experiencing symptoms consistent with COVID?->Yes Surveillance testing for transplant patient?->No Interpretive Data [employer] Film[employer] Respiratory Panel (RP2.1) assay is a [...] assay has FDA clearance for testing of [employer] swabs. The performance of additional specimen types has been assessed by the performing laboratory. The performance characteristics of this assay have been determined by [facility] Molecular Infectious Disease Laboratory. Current interpretive data was last revised on 22. Patricia Bryant MD LAB MICROBIOLOGY - GENERAL ORD ERABLES Final Result [facility] Department [place] [address] * (ABNORMAL) Aerobic culture and gram stain Tracheal aspirate Tracheal (06/19/2024 6:53 PM CHANGE MANAGEMENT MANAGER) Direct Specimen Exam Stain: Abundant polymorphonuclear leukocytes seen. Few squamous epithelial cells seen. Moderate mixed bacterial domenico seen on Gram stain. Report Final Report: Greater than or equal to 100,000 colonies/ml of Staphylococcus aureus Methicillin resistant (MRSA) by penicillin binding protein 2a (PBP2a) testing. Plus growth of clinically insignificant bacterial domenico. (.) [facility] Organism STAPHYLOCOCCUS AUREUS [facility] Organism PLUS GROWTH OF CLINICALLY INSIGNIFICANT DOMENICO. [facility] Tracheal aspirate (Tracheal) 06/19/2024 6:53 PM CHANGE MANAGEMENT MANAGER 06/19/2024 8:18 PM CHANGE MANAGEMENT MANAGER Narrative [facility] - 06/27/2024 2:52 PM CHANGE MANAGEMENT MANAGER Testing performed by [facility] Microbiology Laboratory ([phone]) Specimens submitted from normally sterile body sites [...] INTERPRETATION Resistant Staphylococcus aureus Ceftriaxone INTERPRETATION Resistant us Patricia Bryant MD LAB MICROBIOLOGY - GENERAL ORD ERABLES Final Result [facility] Department [place] [address] * XR Chest 1 View (06/19/2024 6:47 PM CHANGE MANAGEMENT MANAGER) Anatomical Region Laterality Modality Body, Chest N/A Digital Radiogra phy 06/20/2024 2:42 PM CHANGE MANAGEMENT MANAGER Impressions 06/20/2024 3:15 PM CHANGE MANAGEMENT MANAGER Comparison is made to 06/19/2024 at 3:32 [...] Herve Payne M.D. Narrative 06/20/2024 3:15 PM CHANGE MANAGEMENT MANAGER EXAMINATION: 1 view chest radiograph Procedure Note [...] pathogen panel Tracheal aspirate (06/19/2024 6:46 PM CHANGE MANAGEMENT MANAGER) Pathologist [facility] Influenza A RNA Not Detected Not Detected Influenza B RNA Not Detected Not Detected [facility] RSV RNA Not Detected Not Detected [facility] COVID-19 RNA Not Detected Not Detected [facility] Coronavirus 229E RNA Not Detected Not Detected [facility] Coronavirus HKU1 RNA Not Detected Not Detected [facility] Coronavirus NL63 RNA Not Detected Not Detected [facility] Coronavirus OC43 RNA Not Detected Not Detected [facility] Adenovirus DNA Not Detected Not Detected [facility] Metapneumovirus RNA Not Detected Not Detected [facility] Rhinovirus/Enterov irus RNA Not Detected Not Detected [facility] Parainfluenza 1 RNA Not Detected Not Detected [facility] Parainfluenza 2 RNA Not Detected Not Detected [facility] Parainfluenza 3 RNA Not Detected Not Detected [facility] Parainfluenza 4 RNA Not Detected Not Detected [facility] B. pertussis DNA Not Detected Not Detected [facility] B. parapertussis DNA Not Detected Not Detected [facility] C. pneumoniae DNA Not Detected Not Detected [facility] M. pneumoniae DNA Not Detected Not Detected [facility] Tracheal aspirate 06/19/2024 6:46 PM CHANGE MANAGEMENT MANAGER 06/20/2024 7:55 AM CHANGE MANAGEMENT MANAGER Narrative [facility] - 06/20/2024 8:58 AM CHANGE MANAGEMENT MANAGER Is the Patient experiencing symptoms consistent with COVID?->Yes Surveillance testing for transplant patient?->No Interpretive Data [employer] Respiratory Panel (RP2.1) assay is a [...] assay has FDA clearance for testing of [employer] swabs. The performance of additional specimen types has been assessed by the performing laboratory. The performance characteristics of this assay have been determined by [facility] Molecular Infectious Disease Laboratory. Current interpretive data was last revised on 22. us Patricia Bryant MD LAB MICROBIOLOGY - GENERAL ORD ERABLES Final Result [facility] Department [place] [address] * XR Abdomen Ap 1 Vw (06/19/2024 4:09 PM CHANGE MANAGEMENT MANAGER) Anatomical Region Laterality Modality Body, Abdomen N/A Digital Radiogra phy 06/19/2024 4:35 PM CHANGE MANAGEMENT MANAGER Impressions 06/19/2024 5:03 PM CHANGE MANAGEMENT MANAGER Diffuse mild gaseous bowel distention, similar to the prior exam and could represent ileus. Partially imaged gastrostomy tube. Dictated by: Hunter Hernandez M.D. ([place]) The radiology attending physician has personally reviewed this study, and had reviewed and/or edited this written report and agrees with it. Electronically signed by: Lupillo Lugo M.D. Narrative 06/19/2024 5:03 PM CHANGE MANAGEMENT MANAGER EXAMINATION: Abdomen, one view. HISTORY: Abdominal pain [...] XR Chest 1 View (06/19/2024 4:08 PM CHANGE MANAGEMENT MANAGER) Anatomical Region Laterality Modality Body, Chest N/A Digital Radiogra phy 06/19/2024 4:21 PM CHANGE MANAGEMENT MANAGER Impressions 06/19/2024 4:21 PM CHANGE MANAGEMENT MANAGER The current study is compared with the [...] Elif Patel M.D. Narrative 06/19/2024 4:21 PM CHANGE MANAGEMENT MANAGER EXAMINATION: 1 view chest radiograph Procedure Note [...] Final Result * eGFR (06/19/2024 2:47 PM CHANGE MANAGEMENT MANAGER) eGFR >90 >=60 mL/min/1. 73 m2 Comment: [...] last reviewed 2021. Blood 06/19/2024 2:47 PM CHANGE MANAGEMENT MANAGER 06/19/2024 3:03 PM CHANGE MANAGEMENT MANAGER Patricia Bryant MD LAB BLOOD ORDERABLES Final Res ult [facility] Department [place] [address] * Differential, auto (06/19/2024 2:47 PM CHANGE MANAGEMENT MANAGER) Neutrophil abs 5.5 1.5 - 6.5 K/cumm Imm gran abs 0.0 0.0 - 0.1 K/cumm [facility] Lymphocyte abs 0.9 0.8 - 3.3 K/cumm [facility] Monocyte abs 0.2 0.2 - 0.8 K/cumm [facility] Eosinophil abs 0.3 0.0 - 0.5 K/cumm [facility] Basophil abs 0.0 0.0 - 0.1 K/cumm [facility] Neutrophil pct 79.8 % [facility] Comment: Interpretive Data Percent cell count reference ranges are not reported, since discordance with absolute values may lead to misinterpretation of CBC data. Current Interpretive Data was last revised on 2017. Imm gran pct 0.4 % [facility] Comment: Interpretive Data Percent cell count reference ranges are not reported, since discordance with absolute values may lead to misinterpretation of CBC data. Current Interpretive Data was last revised on 2017. Lymphocyte pct 13.4 % [facility] Comment: Interpretive Data Percent cell count reference ranges are not reported, since discordance with absolute values may lead to misinterpretation of CBC data. Current Interpretive Data was last revised on 2017. Monocyte pct 2.5 % [facility] Comment: Interpretive Data Percent cell count reference ranges are not reported, since discordance with absolute values may lead to misinterpretation of CBC data. Current Interpretive Data was last revised on 2017. Eosinophil pct 3.8 % [facility] Comment: Interpretive Data Percent cell count reference ranges are not reported, since discordance with absolute values may lead to misinterpretation of CBC data. Current Interpretive Data was last revised on 2017. Basophil pct 0.1 % [facility] Comment: Interpretive Data Percent cell count reference ranges are not reported, since discordance with absolute values may lead to misinterpretation of CBC data. Current Interpretive Data was last revised on 2017. Blood 06/19/2024 2:47 PM CHANGE MANAGEMENT MANAGER 06/19/2024 3:04 PM CHANGE MANAGEMENT MANAGER us Patricia Bryant MD LAB BLOOD ORDERABLES Final Res ult [facility] Department [place] [address] * (ABNORMAL) CBC with auto differential (06/19/2024 2:47 PM CHANGE MANAGEMENT MANAGER) [facility] WBC 6.9 3.8 - 9.9 K/cumm Hgb 14.2 13.0 - 17.5 g/dL [facility] Hct 42.4 38.9 - 50.3 % [facility] Plt 135(L) 150 - 400 K/cumm [facility] MPV 12.6(H) 9.1 - 12.3 fL [facility] RBC 4.47 4.30 - 5.80 M/cumm [facility] MCV 94.9 81.3 - 96.4 fL [facility] MCH 31.8 27.1 - 33.3 pg [facility] MCHC 33.5 32.3 - 35.7 g/dL [facility] RDW CV 13.2 11.1 - 14.9 % [facility] RDW SD 46.5 35.7 - 48.1 fL [facility] NRBC abs 0.00 0.00 - 0.01 K/cumm [facility] Blood 06/19/2024 2:47 PM CHANGE MANAGEMENT MANAGER 06/19/2024 3:04 PM CHANGE MANAGEMENT MANAGER Patricia Bryant MD LAB BLOOD ORDERABLES Final Res ult Performing Organization Address City/[facility] Co de Phone Number [facility] [place] [address] * (ABNORMAL) Phosphorus (06/19/2024 2:47 PM CHANGE MANAGEMENT MANAGER) [facility] Phosphorus, pl 2.2(L) 2.3 - 4.5 mg/dL Blood 06/19/2024 2:47 PM CHANGE MANAGEMENT MANAGER 06/19/2024 3:03 PM CHANGE MANAGEMENT MANAGER Patricia Bryant MD LAB BLOOD ORDERABLES Final Res ult [facility] [address] * Magnesium (06/19/2024 2:47 PM CHANGE MANAGEMENT MANAGER) Pathologist [facility] Magnesium 2.0 1.4 - 2.5 mg/dL Blood 06/19/2024 2:47 PM CHANGE MANAGEMENT MANAGER 06/19/2024 3:03 PM CHANGE MANAGEMENT MANAGER Patricia Bryant MD LAB BLOOD ORDERABLES Final Res ult [facility] Department [place] [address] * (ABNORMAL) Comprehensive metabolic panel (06/19/2024 2:47 PM CHANGE MANAGEMENT MANAGER) Pathologist [facility] Sodium 144 135 - 145 mmol/L Potassium, pl 3.9 3.3 - 4.9 mmol/L [facility] Comment:Hemolyzed; Potassium value may be falsely elevated by as much as 0.3-0.5 mmol/L. Suggest redraw and reanalysis. Chloride 105 97 - 110 mmol/L [facility] CO2 29 22 - 32 mmol/L [facility] Anion gap 10 2 - 15 mmol/L [facility] BUN 7 6 - 25 mg/dL [facility] Creatinine 0.62(L) 0.80 - 1.30 mg/dL [facility] Glucose 113 70 - 199 mg/dL [facility] Comment: Interpretive Data Fasting glucose >/= 126 [...] 2022. Calcium 9.5 8.5 - 10.3 mg/dL [facility] Bilirubin, total 0.2 0.1 - 1.2 mg/dL [facility] Protein, pl 7.2 6.5 - 8.5 g/dL [facility] Albumin 3.7 3.5 - 5.0 g/dL [facility] Alk phos 91 40 - 130 Units/L [facility] ALT 13 7 - 55 Units/L [facility] AST 28 10 - 50 Units/L [facility] Comment:Hemolyzed; result ma y be falsely elevated Blood 06/19/2024 2:47 PM CHANGE MANAGEMENT MANAGER 06/19/2024 3:03 PM CHANGE MANAGEMENT MANAGER Patricia Bryant MD LAB BLOOD ORDERABLES Final Res ult Performing Organization Address [facility]/ZIP Co de Phone Number [facility] Department [place] [address] * POCT glucose (06/19/2024 2:25 PM CHANGE MANAGEMENT MANAGER) Glucose, POC 125 70 - 199 mg/dL Blood 06/19/2024 2:25 PM CHANGE MANAGEMENT MANAGER 06/19/2024 2:25 PM CHANGE MANAGEMENT MANAGER Patricia Bryant MD LAB POCT ORDERABLES - DEVICE F inal Result Performing Organization Address [facility] Co de Phone Number [facility] Department [place] [address] * XR Abdomen Ap 1 Vw (06/16/2024 6:16 PM CHANGE MANAGEMENT MANAGER) Anatomical Region Laterality Modality Body, Abdomen N/A Computed Radiogr aphy 06/16/2024 6:56 PM CHANGE MANAGEMENT MANAGER Impressions 06/16/2024 6:56 PM CHANGE MANAGEMENT MANAGER Gastrostomy tube is present. Aerated bowel seen throughout the abdomen. The gaseous distention is improved from the prior examination. Distal rectal air is not definitively visualized. No pneumoperitoneum. Electronically signed by: Sekou Wolf M.D. Narrative 06/16/2024 6:56 PM CHANGE MANAGEMENT MANAGER EXAMINATION: Abdomen, one view. HISTORY: Abdominal distension. [...] Res ult * eGFR (06/16/2024 12:42 PM CHANGE MANAGEMENT MANAGER) eGFR >90 >=60 mL/min/1. 73 m2 Comment: [...] reviewed 2021. Blood 06/16/2024 12:4 2 PM CHANGE MANAGEMENT MANAGER 06/16/2024 12:49 PM CHANGE MANAGEMENT MANAGER Misael Felix MD LAB BLOOD ORDERABLES Final Result [facility] Department [place] [address] * Differential, auto (06/16/2024 12:42 PM CHANGE MANAGEMENT MANAGER) Neutrophil abs 2.5 1.5 - 6.5 K/cumm Imm gran abs 0.0 0.0 - 0.1 K/cumm [facility] Lymphocyte abs 2.4 0.8 - 3.3 K/cumm [facility] Monocyte abs 0.4 0.2 - 0.8 K/cumm [facility] Eosinophil abs 0.4 0.0 - 0.5 K/cumm [facility] Basophil abs 0.0 0.0 - 0.1 K/cumm [facility] Neutrophil pct 42.8 % [facility] Comment: Interpretive Data Percent cell count reference ranges are not reported, since discordance with absolute values may lead to misinterpretation of CBC data. Current Interpretive Data was last revised on 2017. Imm gran pct 0.2 % [facility] Comment: Interpretive Data Percent cell count reference ranges are not reported, since discordance with absolute values may lead to misinterpretation of CBC data. Current Interpretive Data was last revised on 2017. Lymphocyte pct 42.2 % [facility] Comment: Interpretive Data Percent cell count reference ranges are not reported, since discordance with absolute values may lead to misinterpretation of CBC data. Current Interpretive Data was last revised on 2017. Monocyte pct 6.7 % [facility] Comment: Interpretive Data Percent cell count reference ranges are not reported, since discordance with absolute values may lead to misinterpretation of CBC data. Current Interpretive Data was last revised on 2017. Eosinophil pct 7.7 % [facility] Comment: Interpretive Data Percent cell count reference ranges are not reported, since discordance with absolute values may lead to misinterpretation of CBC data. Current Interpretive Data was last revised on 2017. Basophil pct 0.4 % [facility] Comment: Interpretive Data Percent cell count reference ranges are not reported, since discordance with absolute values may lead to misinterpretation of CBC data. Current Interpretive Data was last revised on 2017. Blood 06/16/2024 12:4 2 PM CHANGE MANAGEMENT MANAGER 06/16/2024 12:49 PM CHANGE MANAGEMENT MANAGER Misael Felix MD LAB BLOOD ORDERABLES Final Result Performing Organization Address [facility] de Phone Number [facility] Department [place] [address] * (ABNORMAL) CBC with auto differential (06/16/2024 12:42 PM CHANGE MANAGEMENT MANAGER) Pathologist [facility] WBC 5.7 3.8 - 9.9 K/cumm Hgb 12.2(L) 13.0 - 17.5 g/dL [facility] Hct 36.6(L) 38.9 - 50.3 % [facility] Plt 156 150 - 400 K/cumm [facility] MPV 12.6(H) 9.1 - 12.3 fL [facility] RBC 3.85(L) 4.30 - 5.80 M/cumm [facility] MCV 95.1 81.3 - 96.4 fL [facility] MCH 31.7 27.1 - 33.3 pg [facility] MCHC 33.3 32.3 - 35.7 g/dL [facility] RDW CV 13.0 11.1 - 14.9 % [facility] RDW SD 45.1 35.7 - 48.1 fL [facility] NRBC abs 0.00 0.00 - 0.01 K/cumm [facility] Blood 06/16/2024 12:4 2 PM CHANGE MANAGEMENT MANAGER 06/16/2024 12:49 PM CHANGE MANAGEMENT MANAGER Misael Felix MD LAB BLOOD ORDERABLES Final Result Performing Organization Address [facility] Co de Phone Number [facility] Department [place] [address] * Phosphorus (06/16/2024 12:42 PM CHANGE MANAGEMENT MANAGER) Pathologist [facility] Phosphorus, pl 2.5 2.3 - 4.5 mg/dL Blood 06/16/2024 12:4 2 PM CHANGE MANAGEMENT MANAGER 06/16/2024 12:49 PM CHANGE MANAGEMENT MANAGER Misael Felix MD LAB BLOOD ORDERABLES Final Result [facility] Department [place] [address] * Magnesium (06/16/2024 12:42 PM CHANGE MANAGEMENT MANAGER) [facility] Magnesium 2.0 1.4 - 2.5 mg/dL Blood 06/16/2024 12:4 2 PM CHANGE MANAGEMENT MANAGER 06/16/2024 12:49 PM CHANGE MANAGEMENT MANAGER Misael Felix MD LAB BLOOD ORDERABLES Final Result Performing Organization Address [facility] Co de Phone Number [facility] Department [place] [address] * (ABNORMAL) Comprehensive metabolic panel (06/16/2024 12:42 PM CHANGE MANAGEMENT MANAGER) [facility] Sodium 143 135 - 145 mmol/L Potassium, pl 3.5 3.3 - 4.9 mmol/L [facility] Chloride 111(H) 97 - 110 mmol/L [facility] CO2 26 22 - 32 mmol/L [facility] Anion gap 6 2 - 15 mmol/L [facility] BUN 6 6 - 25 mg/dL [facility] Creatinine 0.56(L) 0.80 - 1.30 mg/dL [facility] Glucose 94 70 - 199 mg/dL [facility] Comment: Interpretive Data Fasting glucose >/= 126 [...] 2022. Calcium 8.9 8.5 - 10.3 mg/dL [facility] Bilirubin, total 0.4 0.1 - 1.2 mg/dL [facility] Protein, pl 6.3(L) 6.5 - 8.5 g/dL [facility] Albumin 3.3(L) 3.5 - 5.0 g/dL [facility] Alk phos 79 40 - 130 Units/L [facility] ALT 10 7 - 55 Units/L [facility] AST 18 10 - 50 Units/L [facility] Blood 06/16/2024 12:4 2 PM CHANGE MANAGEMENT MANAGER 06/16/2024 12:49 PM CHANGE MANAGEMENT MANAGER us Misael Felix MD LAB BLOOD ORDERABLES Final Result [facility] Department [place] [address] * XR Abdomen Ap 1 Vw (06/15/2024 1:57 AM CHANGE MANAGEMENT MANAGER) Anatomical Region Laterality Modality Body, Abdomen N/A Computed Radiogr aphy 06/15/2024 3:15 PM CHANGE MANAGEMENT MANAGER Impressions 06/15/2024 4:44 PM CHANGE MANAGEMENT MANAGER There is a gastrostomy tube with tip [...] Sean Angel M.D. Narrative 06/15/2024 4:44 PM CHANGE MANAGEMENT MANAGER EXAMINATION: Abdomen, one view. HISTORY: Abdominal distension. COMPARISON: CT 06/12/2024 Procedure Note eSan Angel MD - 06/15/2024 EXAMINATION: Abdomen, one [...] Res ult * eGFR (06/13/2024 4:59 AM CHANGE MANAGEMENT MANAGER) eGFR >90 >=60 mL/min/1. 73 m2 Comment: [...] last reviewed 2021. Blood 06/13/2024 4:59 AM CHANGE MANAGEMENT MANAGER 06/13/2024 5:38 AM CHANGE MANAGEMENT MANAGER us Ryan Juaregui MD LAB BLOOD ORDERABLES Final Resul t [facility] Department [place] [address] * (ABNORMAL) Differential, auto (06/13/2024 4:59 AM CHANGE MANAGEMENT MANAGER) Neutrophil abs 10.3(H) 1.5 - 6.5 K/cumm Imm gran abs 0.1 0.0 - 0.1 K/cumm [facility] Lymphocyte abs 3.0 0.8 - 3.3 K/cumm [facility] Monocyte abs 0.9(H) 0.2 - 0.8 K/cumm [facility] Eosinophil abs 0.2 0.0 - 0.5 K/cumm [facility] Basophil abs 0.0 0.0 - 0.1 K/cumm [facility] Neutrophil pct 70.9 % [facility] Comment: Interpretive Data Percent cell count reference ranges are not reported, since discordance with absolute values may lead to misinterpretation of CBC data. Current Interpretive Data was last revised on 2017. Imm gran pct 0.4 % [facility] Comment: Interpretive Data Percent cell count reference ranges are not reported, since discordance with absolute values may lead to misinterpretation of CBC data. Current Interpretive Data was last revised on 2017. Lymphocyte pct 20.7 % [facility] Comment: Interpretive Data Percent cell count reference ranges are not reported, since discordance with absolute values may lead to misinterpretation of CBC data. Current Interpretive Data was last revised on 2017. Monocyte pct 6.5 % [facility] Comment: Interpretive Data Percent cell count reference ranges are not reported, since discordance with absolute values may lead to misinterpretation of CBC data. Current Interpretive Data was last revised on 2017. Eosinophil pct 1.4 % [facility] Comment: Interpretive Data Percent cell count reference ranges are not reported, since discordance with absolute values may lead to misinterpretation of CBC data. Current Interpretive Data was last revised on 2017. Basophil pct 0.1 % [facility] Comment: Interpretive Data Percent cell count reference ranges are not reported, since discordance with absolute values may lead to misinterpretation of CBC data. Current Interpretive Data was last revised on 2017. Blood 06/13/2024 4:59 AM CHANGE MANAGEMENT MANAGER 06/13/2024 5:38 AM CHANGE MANAGEMENT MANAGER us Ryan Jauregui MD LAB BLOOD ORDERABLES Final Resul t [facility] Department [place] [address] * Lacosamide level (06/13/2024 4:59 AM CHANGE MANAGEMENT MANAGER) Pathologist [facility] Lacosamide 1.4 1.0 - 10.0 mcg/mL [facility] Comment: ADDITIONAL INFORMATION This test was developed and its performance characteristics determined by [facility] in a manner consistent with CLIA requirements. This test has not been cleared or approved by the U.S. Food and Drug Administration. Test Performed by: [facility] [address] [place] [address] Photograph Mounter: Marianela Odonnell Ph.D.; CLIA# [id number] Blood 06/13/2024 4:59 AM CHANGE MANAGEMENT MANAGER 06/13/2024 5:38 AM CHANGE MANAGEMENT MANAGER Ryan Jauregui MD LAB BLOOD ORDERABLES Final Resul t [facility] Department [place] [address] [facility] * (ABNORMAL) CBC with auto differential (06/13/2024 4:59 AM CHANGE MANAGEMENT MANAGER) [facility] WBC 14.6(H) 3.8 - 9.9 K/cumm Hgb 13.2 13.0 - 17.5 g/dL [facility] Hct 39.7 38.9 - 50.3 % [facility] Plt 155 150 - 400 K/cumm [facility] MPV 12.4(H) 9.1 - 12.3 fL [facility] RBC 4.03(L) 4.30 - 5.80 M/cumm [facility] MCV 98.5(H) 81.3 - 96.4 fL [facility] MCH 32.8 27.1 - 33.3 pg [facility] MCHC 33.2 32.3 - 35.7 g/dL [facility] RDW CV 13.6 11.1 - 14.9 % [facility] RDW SD 50.2(H) 35.7 - 48.1 fL [facility] NRBC abs 0.00 0.00 - 0.01 K/cumm [facility] Blood 06/13/2024 4:59 AM CHANGE MANAGEMENT MANAGER 06/13/2024 5:38 AM CHANGE MANAGEMENT MANAGER Ryan Jauregui MD LAB BLOOD ORDERABLES Final Resul t [facility] Department [place] [address] * Blood culture Blood (06/13/2024 4:59 AM CHANGE MANAGEMENT MANAGER) Report Final Report: No growth Blood 06/13/2024 4:59 AM CHANGE MANAGEMENT MANAGER 06/13/2024 6:21 AM CHANGE MANAGEMENT MANAGER Narrative [facility] - 06/17/2024 7:00 AM CHANGE MANAGEMENT MANAGER From a different site than #1. Collection->Peripheral [...] performance characteristics have been verified by the [facility]. For questions about this culture, contact the Microbiology Laboratory at [phone]. Interpretive data was last revised on 24. us Ryan Jauregui MD LAB MICROBIOLOGY - GENERAL ORDER NICHOLE Final Result Performing Organization Address [facility] de Phone Number [facility] [place] [address] * Phosphorus (06/13/2024 4:59 AM CHANGE MANAGEMENT MANAGER) Phosphorus, pl 3.0 2.3 - 4.5 mg/dL Blood 06/13/2024 4:59 AM CHANGE MANAGEMENT MANAGER 06/13/2024 5:38 AM CHANGE MANAGEMENT MANAGER us Ryan Jauregui MD LAB BLOOD ORDERABLES Final Resul t Performing Organization Address [facility] de Phone Number [facility] Department [place] [address] * Magnesium (06/13/2024 4:59 AM CHANGE MANAGEMENT MANAGER) Magnesium 1.9 1.4 - 2.5 mg/dL Blood 06/13/2024 4:59 AM CHANGE MANAGEMENT MANAGER 06/13/2024 5:38 AM CHANGE MANAGEMENT MANAGER us Ryan Jauregui MD LAB BLOOD ORDERABLES Final Resul t Performing Organization Address [facility] de Phone Number [facility] Department [place] [address] * (ABNORMAL) Valproic acid level, total (06/13/2024 4:59 AM CHANGE MANAGEMENT MANAGER) Valproic Acid 48.0(L) 50.0 - 100.0 mcg/mL Comment: Interpretive Data Therapeutic or toxic effects of anticonvulsant drugs may occur at different concentrations in different patients and the correlation between dose and clinical effect must be evaluated individually. Current interpretative data was last revised on 13. Blood 06/13/2024 4:59 AM CHANGE MANAGEMENT MANAGER 06/13/2024 5:38 AM CHANGE MANAGEMENT MANAGER us Ryan Jauregui MD LAB BLOOD ORDERABLES Final Resul t Performing Organization Address City/[facility]/ZIP Co de Phone Number [facility] Department [place] [address] * (ABNORMAL) Comprehensive metabolic panel (06/13/2024 4:59 AM CHANGE MANAGEMENT MANAGER) Sodium 141 135 - 145 mmol/L Potassium, pl 3.9 3.3 - 4.9 mmol/L [facility] Chloride 106 97 - 110 mmol/L [facility] CO2 28 22 - 32 mmol/L [facility] Anion gap 7 2 - 15 mmol/L [facility] BUN 8 6 - 25 mg/dL [facility] Creatinine 0.54(L) 0.80 - 1.30 mg/dL [facility] Glucose 103 70 - 199 mg/dL [facility] Comment: Interpretive Data Fasting glucose >/= 126 [...] 2022. Calcium 9.5 8.5 - 10.3 mg/dL [facility] Bilirubin, total 0.5 0.1 - 1.2 mg/dL [facility] Protein, pl 7.1 6.5 - 8.5 g/dL [facility] Albumin 3.7 3.5 - 5.0 g/dL [facility] Alk phos 96 40 - 130 Units/L [facility] ALT 17 7 - 55 Units/L [facility] AST 22 10 - 50 Units/L [facility] Blood 06/13/2024 4:59 AM CHANGE MANAGEMENT MANAGER 06/13/2024 5:38 AM CHANGE MANAGEMENT MANAGER Ryan Jauregui MD LAB BLOOD ORDERABLES Final Resul t [facility] Department [place] [address] * TSH (06/12/2024 3:51 PM CHANGE MANAGEMENT MANAGER) [facility] Thyroid Stimulating Hormone 2.58 0.30 - 4.20 mcIUnit/mL Blood 06/12/2024 3:51 PM CHANGE MANAGEMENT MANAGER 06/12/2024 5:05 PM CHANGE MANAGEMENT MANAGER us Ryan Jauregui MD LAB BLOOD ORDERABLES Final Resul t [facility] Department [place] [address] * (ABNORMAL) Differential, auto (06/12/2024 3:30 PM CHANGE MANAGEMENT MANAGER) [facility] Neutrophil abs 9.5(H) 1.5 - 6.5 K/cumm Imm gran abs 0.0 0.0 - 0.1 K/cumm [facility] Lymphocyte abs 2.3 0.8 - 3.3 K/cumm [facility] Monocyte abs 1.1(H) 0.2 - 0.8 K/cumm [facility] Eosinophil abs 0.2 0.0 - 0.5 K/cumm [facility] Basophil abs 0.0 0.0 - 0.1 K/cumm [facility] Neutrophil pct 72.4 % [facility] Comment: Interpretive Data Percent cell count reference ranges are not reported, since discordance with absolute values may lead to misinterpretation of CBC data. Current Interpretive Data was last revised on 2017. Imm gran pct 0.2 % [facility] Comment: Interpretive Data Percent cell count reference ranges are not reported, since discordance with absolute values may lead to misinterpretation of CBC data. Current Interpretive Data was last revised on 2017. Lymphocyte pct 17.4 % [facility] Comment: Interpretive Data Percent cell count reference ranges are not reported, since discordance with absolute values may lead to misinterpretation of CBC data. Current Interpretive Data was last revised on 2017. Monocyte pct 8.3 % [facility] Comment: Interpretive Data Percent cell count reference ranges are not reported, since discordance with absolute values may lead to misinterpretation of CBC data. Current Interpretive Data was last revised on 2017. Eosinophil pct 1.5 % [facility] Comment: Interpretive Data Percent cell count reference ranges are not reported, since discordance with absolute values may lead to misinterpretation of CBC data. Current Interpretive Data was last revised on 2017. Basophil pct 0.2 % [facility] Comment: Interpretive Data Percent cell count reference ranges are not reported, since discordance with absolute values may lead to misinterpretation of CBC data. Current Interpretive Data was last revised on 2017. Blood 06/12/2024 3:30 PM CHANGE MANAGEMENT MANAGER 06/12/2024 5:10 PM CHANGE MANAGEMENT MANAGER us Ryan Jauregui MD LAB BLOOD ORDERABLES Final Resul t [facility] Department [place] [address] * (ABNORMAL) CBC with auto differential (06/12/2024 3:30 PM CHANGE MANAGEMENT MANAGER) WBC 13.3(H) 3.8 - 9.9 K/cumm Hgb 13.7 13.0 - 17.5 g/dL [facility] Hct 41.5 38.9 - 50.3 % [facility] Plt 162 150 - 400 K/cumm [facility] MPV 13.6(H) 9.1 - 12.3 fL [facility] RBC 4.27(L) 4.30 - 5.80 M/cumm [facility] MCV 97.2(H) 81.3 - 96.4 fL [facility] MCH 32.1 27.1 - 33.3 pg [facility] MCHC 33.0 32.3 - 35.7 g/dL [facility] RDW CV 13.7 11.1 - 14.9 % [facility] RDW SD 48.8(H) 35.7 - 48.1 fL [facility] NRBC abs 0.00 0.00 - 0.01 K/cumm [facility] Blood 06/12/2024 3:30 PM CHANGE MANAGEMENT MANAGER 06/12/2024 5:10 PM CHANGE MANAGEMENT MANAGER Result [facility] Ryan Jauregui MD LAB BLOOD ORDERABLES Final Resul t Performing Organization Address [facility] de Phone Number [facility] Department [place] [address] * Hemoglobin A1c (06/12/2024 3:30 PM CHANGE MANAGEMENT MANAGER) [facility] Hgb A1C 4.9 4.0 - 5.6 % Estimated Average Glucose 94 mg/dL [facility] Comment: The ADA recommends reporting an estimated Average Glucose (eAG) with all Hemoglobin A1c results using the equation derived from a study of 507 normal and diabetic adults. Minority populations were underrepresented and children were not included. (Diabetes Care 2020; 43(S1): S66-S76). The eAG is not equivalent to a fasting glucose. Blood 06/12/2024 3:30 PM CHANGE MANAGEMENT MANAGER 06/12/2024 5:10 PM CHANGE MANAGEMENT MANAGER Result [facility] Ryan Jauregui MD LAB BLOOD ORDERABLES Final Resul t Performing Organization Address [facility] de Phone Number [facility] Department [place] [address] * Troponin I high-sensitivity 4-hour (06/12/2024 3:27 PM CHANGE MANAGEMENT MANAGER) Pathologist [facility] [place] Trop I hs 10 <=35 ng/L Comment: Interpretive Data For further hscTnI resources including the diagnostic algorithm and an aid in interpretation, copy and paste this link: [email or web address].testcatalog.org/show/[email or web address] Current Interpretive Data last revised 2019. Trop I hs delta 1 ng/L [facility] Trop I hs interp Insignificant [facility] Blood 06/12/2024 3:27 PM CHANGE MANAGEMENT MANAGER 06/12/2024 5:06 PM CHANGE MANAGEMENT MANAGER Shakila Jung MD LAB BLOOD ORDERABL ES Final Result [facility] Department [place] [address] * XR Chest 1 Vw Portable (06/12/2024 2:47 PM CHANGE MANAGEMENT MANAGER) Anatomical Region Laterality Modality Body, Chest N/A Computed Radiogr aphy 06/12/2024 2:51 PM CHANGE MANAGEMENT MANAGER Impressions 06/12/2024 2:51 PM CHANGE MANAGEMENT MANAGER Comparison to 10/07/2021. Tracheostomy device in place. Small lung volumes with bibasilar atelectasis. No pneumothorax or focal consolidation. Unchanged cardiomediastinal silhouette, accounting for differences volumes. Small left pleural effusion. No right pleural effusion. Electronically signed by: Raul Whitfield M.D. Narrative 06/12/2024 2:51 PM CHANGE MANAGEMENT MANAGER EXAMINATION: 1 view chest radiograph Procedure Note [...] Urine, in and out catheter (06/12/2024 2:38PM CHANGE MANAGEMENT MANAGER) Color, ur Straw Yellow Clarity, ur Clear Clear [facility] Specific gravity, ur >1.042(H) 1.003 - 1.030 [facility] pH, urine 8.5 [facility] Comment: Interpretive Data U rine pH is affected by diet, medications, systemic acid-base disturbances, and renal tubular function. pH may affect urinary stone formation. For example, urine pH below 6.0 may help reduce the tendency for calcium phosphate stones and pH greater than 6.0 may reduce the tendency for uric acid stone formation. Source: [facility] Current Interpretive Data was last revised on 2017 Protein, ur ql Trace Negative [facility] Glucose, ur ql Negative Negative [facility] Ketones, ur Negative Negative [facility] Bilirubin, ur Negative Negative [facility] Blood, ur Negative Negative [facility] Urobilinogen, ur 2.0(A) <2.0 mg/dL [facility] Nitrite, ur Negative Negative [facility] Leukocyte esterase, ur Negative Negative [facility] UA reflex comment Reflex conditions for microscopic UA and culture not met. [facility] Urine, in and out catheter 06/12/2024 2:38 PM CHANGE MANAGEMENT MANAGER 06/12/2024 3:47 PM CHANGE MANAGEMENT MANAGER us Shakila Jung MD LAB MICROBIOLOGY - GENERAL ORDERABLES Final Result [facility] Department [place] [address] * (ABNORMAL) Differential, auto (06/12/2024 2:23 PM CHANGE MANAGEMENT MANAGER) Neutrophil abs 9.9(H) 1.5 - 6.5 K/cumm Imm gran abs 0.1 0.0 - 0.1 K/cumm [facility] Lymphocyte abs 2.5 0.8 - 3.3 K/cumm [facility] Monocyte abs 1.0(H) 0.2 - 0.8 K/cumm [facility] Eosinophil abs 0.2 0.0 - 0.5 K/cumm [facility] Basophil abs 0.0 0.0 - 0.1 K/cumm [facility] Neutrophil pct 72.4 % [facility] Comment: Interpretive Data Percent cell count reference ranges are not reported, since discordance with absolute values may lead to misinterpretation of CBC data. Current Interpretive Data was last revised on 2017. Imm gran pct 0.4 % [facility] Comment: Interpretive Data Percent cell count reference ranges are not reported, since discordance with absolute values may lead to misinterpretation of CBC data. Current Interpretive Data was last revised on 2017. Lymphocyte pct 18.4 % [facility] Comment: Interpretive Data Percent cell count reference ranges are not reported, since discordance with absolute values may lead to misinterpretation of CBC data. Current Interpretive Data was last revised on 2017. Monocyte pct 7.2 % [facility] Comment: Interpretive Data Percent cell count reference ranges are not reported, since discordance with absolute values may lead to misinterpretation of CBC data. Current Interpretive Data was last revised on 2017. Eosinophil pct 1.5 % [facility] Comment: Interpretive Data Percent cell count reference ranges are not reported, since discordance with absolute values may lead to misinterpretation of CBC data. Current Interpretive Data was last revised on 2017. Basophil pct 0.1 % [facility] Comment: Interpretive Data Percent cell count reference ranges are not reported, since discordance with absolute values may lead to misinterpretation of CBC data. Current Interpretive Data was last revised on 2017. Blood 06/12/2024 2:23 PM CHANGE MANAGEMENT MANAGER 06/12/2024 4:04 PM CHANGE MANAGEMENT MANAGER us Shakila Jung MD LAB BLOOD ORDERABL ES Final Result [facility] Department [place] [address] * (ABNORMAL) CBC with auto differential (06/12/2024 2:23 PM CHANGE MANAGEMENT MANAGER) WBC 13.7(H) 3.8 - 9.9 K/cumm Hgb 14.1 13.0 - 17.5 g/dL [facility] Hct 42.0 38.9 - 50.3 % [facility] Plt 171 150 - 400 K/cumm [facility] MPV 13.2(H) 9.1 - 12.3 fL [facility] RBC 4.36 4.30 - 5.80 M/cumm [facility] MCV 96.3 81.3 - 96.4 fL [facility] MCH 32.3 27.1 - 33.3 pg [facility] MCHC 33.6 32.3 - 35.7 g/dL [facility] RDW CV 13.5 11.1 - 14.9 % [facility] RDW SD 48.5(H) 35.7 - 48.1 fL [facility] NRBC abs 0.00 0.00 - 0.01 K/cumm [facility] Blood 06/12/2024 2:23 PM CHANGE MANAGEMENT MANAGER 06/12/2024 4:04 PM CHANGE MANAGEMENT MANAGER Shakila Jung MD LAB BLOOD ORDERABL ES Final Result Performing Organization Address [facility] de Phone Number [facility] Department [place] [address] * Troponin I high-sensitivity 2-hour (06/12/2024 1:56 PM CHANGE MANAGEMENT MANAGER) Trop I hs 10 <=35 ng/L Comment: Interpretive Data For further hscTnI resources including the diagnostic algorithm and an aid in interpretation, copy and paste this link: [email or web address].testcatalog.org/show/[email or web address] Current Interpretive Data last revised 2019. Trop I hs delta 1 ng/L [facility] Trop I hs interp Insignificant [facility] Blood 06/12/2024 1:56 PM CHANGE MANAGEMENT MANAGER 06/12/2024 2:22 PM CHANGE MANAGEMENT MANAGER Shakila Jung MD LAB BLOOD ORDERABL ES Final Result Performing Organization Address [facility]/ZIP Co de Phone Number [facility] Department [place] [address] * CT Abdomen Pelvis W Contrast (06/12/2024 12:22 PM CHANGE MANAGEMENT MANAGER) Anatomical Region Laterality Modality Body N/A Computed Tomogra phy 06/12/2024 12:4 9 PM CHANGE MANAGEMENT MANAGER Impressions 06/12/2024 12:49 PM CHANGE MANAGEMENT MANAGER No acute findings in the abdomen/pelvis. Specifically, no bowel obstruction. Electronically signed by: Raul Whitfield M.D. Narrative 06/12/2024 12:49 PM CHANGE MANAGEMENT MANAGER EXAMINATION: Computed tomography of the abdomen and [...] ED PERIPHERAL LINE INSERTION (06/12/2024 11:50 AM CHANGE MANAGEMENT MANAGER) Narrative Shakila Jung MD - 06/12/2024 11:50 AM CHANGE MANAGEMENT MANAGER Shakila Jung MD 06/12/2024 11:50 AM Peripheral [...] and COVID-19 PCR Nasopharyngeal (06/12/2024 11:39 AM CHANGE MANAGEMENT MANAGER) [facility] COVID-19 RNA Negative Negative [facility] Influenza A RNA Negative Negative [facility] Influenza B RNA Negative Negative [facility] RSV RNA Negative Negative [facility] Comment: Interpretive data: Testing performed by [facility] ([phone]). This test is performed using the [employer] Xpert Xpress CoV-2/Flu/RSV plus assay. This is a multiplex, real-time reverse transcriptase PCR assay intended for the qualitative detection of nucleic acid from SARS-CoV-2, influenza A, influenza B, and respiratory syncytial virus. This assay has been cleared by the [place] Food and Drug administration. The performance characteristics have been verified by the [facility]. Results must be considered in the clinical context, and a negative result does not rule out infection. Interpretive Data last revised 2023 Nasopharyngeal 06/12/2024 11 :39 AM CHANGE MANAGEMENT MANAGER 06/12/2024 12:55 PM CHANGE MANAGEMENT MANAGER Narrative [facility] - 06/12/2024 1:39 PM CHANGE MANAGEMENT MANAGER Is the Patient experiencing symptoms consistent with COVID?->Unknown Result [facility] Shakila Jung MD LAB MICROBIOLOGY - GENERAL ORDERABLES Final Result Performing Organization Address [facility] Co de Phone Number [facility] [place] [address] [facility] * POCT creatinine (06/12/2024 11:29 AM CHANGE MANAGEMENT MANAGER) Pathologist [facility] Creatinine POC 0.7 0.7 - 1.3 mg/dL Blood 06/12/2024 11:2 9 AM CHANGE MANAGEMENT MANAGER 06/12/2024 11:29 AM CHANGE MANAGEMENT MANAGER Result [facility] Shakila Jung MD LAB POCT ORDERABLE S - DEVICE Final Result Performing Organization Address [facility] de Phone Number [facility] [place] [address] * Troponin I high-sensitivity series (baseline, 2hr, 4hr, 6hr) (06/12/2024 11:22 AM CHANGE MANAGEMENT MANAGER) Pathologist [facility] Trop I hs 9 <=35 ng/L Comment: Interpretive Data For further hscTnI resources including the diagnostic algorithm and an aid in interpretation, copy and paste this link: [email or web address].testcatalog.org/show/[email or web address] Current Interpretive Data last revised 2019. Blood 06/12/2024 11:2 2 AM CHANGE MANAGEMENT MANAGER 06/12/2024 1:06 PM CHANGE MANAGEMENT MANAGER Shakila Jung MD LAB BLOOD ORDERABL ES Final Result Performing Organization Address [facility] Co de Phone Number [facility] Department [place] [address] * eGFR (06/12/2024 11:22 AM CHANGE MANAGEMENT MANAGER) Pathologist [facility] eGFR >90 [...] reviewed 2021. Blood 06/12/2024 11:2 2 AM CHANGE MANAGEMENT MANAGER 06/12/2024 1:07 PM CHANGE MANAGEMENT MANAGER us Shakila Jung MD LAB BLOOD ORDERABL ES Final Result [facility] Department [place] [address] * Differential, auto (06/12/2024 11:22 AM CHANGE MANAGEMENT MANAGER) [facility] Neutrophil abs See Comment 1.5 - 6.5 Comment:Credited, specimen c lotted. Imm gran abs See Comment 0.0 - 0.1 [facility] Comment:Credited, specimen c lotted. Lymphocyte abs See Comment 0.8 - 3.3 [facility] Comment:Credited, specimen c lotted. Monocyte abs See Comment 0.2 - 0.8 [facility] Comment:Credited, specimen c lotted. Eosinophil abs See Comment 0.0 - 0.5 [facility] Comment:Credited, specimen c lotted. Basophil abs See Comment 0.0 - 0.1 [facility] Comment:Credited, specimen c lotted. Neutrophil pct See Comment [facility] Comment: Credited, specimen clotted. Interpretive Data Percent cell count reference ranges are not reported, since discordance with absolute values may lead to misinterpretation of CBC data. Current Interpretive Data was last revised on 2017. Imm gran pct See Comment [facility] Comment: Credited, specimen clotted. Interpretive Data Percent cell count reference ranges are not reported, since discordance with absolute values may lead to misinterpretation of CBC data. Current Interpretive Data was last revised on 2017. Lymphocyte pct See Comment [facility] Comment: Credited, specimen clotted. Interpretive Data Percent cell count reference ranges are not reported, since discordance with absolute values may lead to misinterpretation of CBC data. Current Interpretive Data was last revised on 2017. Monocyte pct See Comment [facility] Comment: Credited, specimen clotted. Interpretive Data Percent cell count reference ranges are not reported, since discordance with absolute values may lead to misinterpretation of CBC data. Current Interpretive Data was last revised on 2017. Eosinophil pct See Comment [facility] Comment: Credited, specimen clotted. Interpretive Data Percent cell count reference ranges are not reported, since discordance with absolute values may lead to misinterpretation of CBC data. Current Interpretive Data was last revised on 2017. Basophil pct See Comment [facility] Comment: Credited, specimen clotted. Interpretive Data Percent cell count reference ranges are not reported, since discordance with absolute values may lead to misinterpretation of CBC data. Current Interpretive Data was last revised on 2017. Blood 06/12/2024 11:2 2 AM CHANGE MANAGEMENT MANAGER 06/12/2024 1:07 PM CHANGE MANAGEMENT MANAGER us Shakila Jung MD LAB BLOOD ORDERABL ES Edited Result - Final [facility] Department [place] [address] * CBC with auto differential (06/12/2024 11:22 AM CHANGE MANAGEMENT MANAGER) WBC See Comment 3.8 - 9.9 Comment:Credited, specimen c lotted. Hgb See Comment 13.0 - 17.5 [facility] Comment:Credited, specimen c lotted. Hct See Comment 38.9 - 50.3 [facility] Comment:Credited, specimen c lotted. Plt See Comment 150 - 400 [facility] Comment: Credited, specimen clotted. spoke to ALFRED Velásquez 06/12/2024 14:17:24 CHANGE MANAGEMENT MANAGER fv MPV See Comment 9.1 - 12.3 [facility] Comment:Credited, specimen c lotted. RBC See Comment 4.30 - 5.80 [facility] Comment:Credited, specimen c lotted. MCV See Comment 81.3 - 96.4 [facility] Comment:Credited, specimen c lotted. MCH See Comment 27.1 - 33.3 [facility] Comment:Credited, specimen c lotted. MCHC See Comment 32.3 - 35.7 [facility] Comment:Credited, specimen c lotted. RDW CV See Comment 11.1 - 14.9 [facility] Comment:Credited, specimen c lotted. RDW SD See Comment 35.7 - 48.1 [facility] Comment:Credited, specimen c lotted. NRBC abs See Comment 0.00 - 0.01 K/cumm [facility] Comment:Credited, specimen c lotted. Blood 06/12/2024 11:2 2 AM CHANGE MANAGEMENT MANAGER 06/12/2024 1:07 PM CHANGE MANAGEMENT MANAGER us Shakila Jung MD LAB BLOOD ORDERABL ES Final Result [facility] Department [place] [address] * Lipase (06/12/2024 11:22 AM CHANGE MANAGEMENT MANAGER) Lipase 24 10 - 99 Units/L Blood 06/12/2024 11:2 2 AM CHANGE MANAGEMENT MANAGER 06/12/2024 1:07 PM CHANGE MANAGEMENT MANAGER Shakila Jung MD LAB BLOOD ORDERABL ES Final Result Performing Organization Address [facility] de Phone Number [facility] [place] [address] * (ABNORMAL) Valproic acid level, total (06/12/2024 11:22 AM CHANGE MANAGEMENT MANAGER) Pathologist [facility] [place] Valproic Acid 48.0(L) 50.0 - 100.0 mcg/mL Comment: Interpretive Data Therapeutic or toxic effects of anticonvulsant drugs may occur at different concentrations in different patients and the correlation between dose and clinical effect must be evaluated individually. Current interpretative data was last revised on 13. Blood 06/12/2024 11:2 2 AM CHANGE MANAGEMENT MANAGER 06/12/2024 1:07 PM CHANGE MANAGEMENT MANAGER Shakila Jung MD LAB BLOOD ORDERABL ES Final Result Performing Organization Address [facility] de Phone Number [facility] [place] [address] * (ABNORMAL) Comprehensive metabolic panel (06/12/2024 11:22 AM CHANGE MANAGEMENT MANAGER) Sodium 142 135 - 145 mmol/L Potassium, pl 4.6 3.3 - 4.9 mmol/L [facility] Comment:Hemolyzed; Potassium value may be falsely elevated by as much as 0.6-1.0 mmol/L. Suggest redraw and reanalysis. Chloride 101 97 - 110 mmol/L [facility] CO2 29 22 - 32 mmol/L [facility] Anion gap 12 2 - 15 mmol/L [facility] BUN 11 6 - 25 mg/dL [facility] Creatinine 0.60(L) 0.80 - 1.30 mg/dL [facility] Glucose 89 70 - 199 mg/dL [facility] Comment: Interpretive Data Fasting glucose >/= 126 [...] Calcium 10.3 8.5 - 10.3 mg/dL [facility] Bilirubin, total 0.3 0.1 - 1.2 mg/dL [facility] Protein, pl 8.5 6.5 - 8.5 g/dL [facility] Albumin 4.3 3.5 - 5.0 g/dL [facility] Alk phos 114 40 - 130 Units/L [facility] ALT 22 7 - 55 Units/L [facility] AST 45 10 - 50 Units/L [facility] Comment:Hemolyzed; result ma y be falsely elevated Blood 06/12/2024 11:2 2 AM CHANGE MANAGEMENT MANAGER 06/12/2024 1:07 PM CHANGE MANAGEMENT MANAGER us Shakila Jung MD LAB BLOOD ORDERABL ES Final Result [facility] Department [place] [address] * ECG 12-LEAD (06/12/2024 11:01 AM CHANGE MANAGEMENT MANAGER) Narrative [facility] - 06/12/2024 11:01 AM CHANGE MANAGEMENT MANAGER Shakila Jung MD 06/12/2024 11:02 AM ECG [...] Jung MD ECG ORDERABLES Fi nal Result [facility] * TNI with LIPID PANEL (08/24/2017 4:57 PM CDT) Troponin I < 0.300 0.000 - 0.300 ng/mL 08/24/2017 5:29 PM T [employer] HISTORICAL RESULTS Comment: Reference using ZAC Chemiluminescence Negative: Repeat in 4-6 hours as indicated. Triglycerides 34 0 - 199 mg/dL 08/24/2017 5:30 PM T [facility] [employer] [facility] HISTORICAL RESULTS Comment:12 hr pc highly avani mmended for Triglyceride Cholesterol 129 0 - 199 mg/dL 08/24/2017 5:30 PM T [facility] [employer] HISTORICAL RESULTS Comment: Borderline: 200-239 High Risk: >239 HDL Cholesterol 71 mg/dL 8 5:30 PM T [facility] [employer] HISTORICAL RESULTS Comment: Reference Ranges: Males: >=40 mg/dL Females: >=50 mg/dL LDL Cholesterol, Calc 51 0 - 130 mg/dL 08/24/2017 5:30 PM T [facility] [employer] HISTORICAL RESULTS Comment:High Risk > 159 mg/d L Cholesterol/HDL Ratio 1.8 08/24/2017 5:30 PM T [facility] [employer] HISTORICAL RESULTS Comment: Cholesterol / HDL Ratio 3.5:1 or less is desirable. Cholesterol / HDL Ratio greater than 5:1 is considered higher risk for developing heart disease. 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 Source: [facility] [employer] 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 Source: [facility] [employer] 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
--- OUTSIDE RECORDS SUMMARY | 2024-08-09 01:06 | XMS_ITS | Clinical Summary ---
Author Organization [facility] [employer] Address [address] [place] [address] Care Team Providers Care Nail Puller Name Role Phone Elizabeth Sullivan RN Unavailable [phone] Dany Monsivais MD Primary Care Provider Source Comments [facility],non-owned Affiliates and Associated Physician Practices is amultiple site organization consisting of ambulatory clinics and hospital sitesin [place], [place], [place] and [place]. This disclosure is being madepursuant to the Care Everywhere program and may not contain all information available regarding this patient. Last updated 18.[facility] [employer] Allergies Active Allergy Reactions Criticality Noted Date [...] both eyes every 8 hours 3 Active Additional Information Patient not taking.Reason: Other, Reported on 06/08/2024 metoprolol tartrate IR (Lopressor) 25 MG tablet 1 (one) tablet by Enteral Tube route 2 times daily 3 Active Calcium Carbonate Antacid (calcium carbonate, [...] route once daily 30 tablet 3 Active bisacodyl (Dulcolax) 10 MG suppository Insert 1 (one) suppository into the rectum once daily as needed for Constipation Active albuterol-iprat ropium (Duo-Neb) 0.5-2.5 (3) MG/3ML nebulizer solution Inhale 3 mL by mouth every 6 hours as needed for Shortness of Breath or Wheezing Active cloBAZam (Onfi) 10 MG tablet Take 1 (one) tablet by mouth 2 times daily 60 tablet 5 4 Active finasteride (Proscar) 5 MG tablet 1 (one) tablet by Per G Tube route once daily 4 Active glycopyrrolate (Robinul) 1 MG tablet 1 (one) tablet by Per G Tube route 2 times daily 4 Active lacosamide (Vimpat) 10 MG/ML oral solution 20 mL by Per G Tube route 2 times daily Active Sodium Phosphates (FLEET ENEMA RE) Active magnesium hydroxide (Milk of Magnesia) 400 MG/5ML suspension Take 30 mL by mouth as needed for Constipation Active ondansetron (Zofran) 4 MG tablet 1 (one) tablet by Enteral Tube route every 6 hours as needed for Nausea/Vomiting Active levETIRAcetam (Keppra) 100 MG/ML oral solution 17.5 mL by Enteral Tube route 2 times daily for 90 days 1050 mL 2 5 10/17/19 25 Active pantoprazole (Protonix) 40 MG packet Take 1 (one) packet by mouth 2 times daily for 60 days 5 09/17/19 25 Active valproic acid (Depakene) 250 MG/5ML solution 10 mL by Per G Tube route every 8 hours 5 Active acetaminophen (Tylenol) 325 MG tablet 2 (two) tablets by Enteral Tube route 3 times daily Maximum allowable Acetaminophen amount = 4 Grams (4000 mg) / 24 hours. Pt takes 160 mg/5mL liquid which is the same as 325 mg tab 5 Active pantoprazole EC (Protonix) 40 MG tablet Take 1 (one) tablet by mouth 2 times daily 5 Active acetaminophen (Tylenol) 325 MG tablet 2 (two) tablets by Enteral Tube route every 6 hours as needed Maximum allowable Acetaminophen amount = 4 Grams (4000 mg) / 24 hours. 3 08/09/19 25 Discontinued apixaban (Eliquis) 5 MG tablet Take 1 (one) tablet by mouth 2 times daily Per G-tube 4 07/19/19 25 Discontinued(Cli nical Decision) levETIRAcetam (Keppra) 100 MG/ML oral solution 20 mL by Enteral Tube route 2 times daily for 90 days 1200 mL 2 4 07/18/19 25 Discontinued lacosamide (Vimpat) 200 MG tablet Take 1 (one) tablet by mouth 2 times daily for 90 days 60 tablet 2 4 07/19/19 25 Discontinued(Lis t Clean-Up) pantoprazole (Protonix) 40 MG packet Take 1 (one) packet by mouth 2 times daily for 60 days 120 Each 5 07/18/19 25 Discontinued valproic acid (Depakene) 250 MG/5ML solution 25 mL by Per G Tube route every 6 hours 473 mL 5 07/18/19 25 Discontinued valproic acid (Depakene) 250 MG/5ML solution Take 10 mL by mouth every 6 hours 07/19/19 25 Discontinued(Lis t Clean-Up) Active Problems Problem Noted Date Diagnosed Date Acute metabolic encephalopathy 08/06/2024 Moderate protein-calorie malnutrition 08/06/2024 PEG tube malfunction 08/05/2024 Tracheostomy dependent 08/05/2024 Dysphagia due to old cerebrovascular accident Generalized abdominal pain 08/02/2024 Acute cystitis without hematuria 08/02/2024 Nausea without vomiting 08/02/2024 Nausea and vomiting, unspecified vomiting type 0 07/17/2024 G tube feedings 06/07/2024 Coffee ground emesis 06/07/2024 Anemia, unspecified type 09/06/2023 Hypertension, unspecified [...] No evidence of infection Urine cultures from [facility] last month were negative growth as [...] Encounters Date Type Department Care Team Description 08/02/2024 4:31 PM MACHINE COMPOSITOR - 08/08/2024 8:48 PM CDT Hospital Encounter [facility] [address] [facility] [place] [address] Elmo Johnson MD Mayer, Joshua C, DO Arshad, Iqra, MD Archuleta, Lydia, MD Joag, Madhura, MD Internal Medicine Discharge Disposition: [facility] or Supportive Care 08/02/2024 1:23 AM MACHINE COMPOSITOR - 08/02/2024 8:15 AM [facility] Emergency [facility] EMERGENCY DEPARTMENT [address] [place] [address] Arthur Marinelli MD Other tracheostomy complication (HCC) (Primary Dx); Abdominal pain, unspecified abdominal location Discharge Disposition: Senior Care Facility 08/02/2024 Travel 07/27/2024 3:54 PM MACHINE COMPOSITOR - 07/28/2024 6:53 AM MACHINE COMPOSITOR Emergency [facility] EMERGENCY DEPARTMENT [address] [place] [phone] Serjio Vilchis MD Feeding intolerance (Primary Dx); Generalized abdominal pain; Chronic pulmonary aspiration, initial encounter Discharge Disposition: Senior Care Facility 07/27/2024 Travel 07/18/2024 4:15 PM MACHINE COMPOSITOR - 07/18/2024 4:45 PM MACHINE COMPOSITOR Surgery [facility] ENDOSCOPY [address] [place] [phone] Clifton Trinh MD EGD(ISO) 07/18/2024 4:05 PM MACHINE COMPOSITOR Anesthesia Event [facility] ENDOSCOPY [address] [place] [phone] Teri Trent MD Dobbs, Yelena Chau, ELASTIC YARN TWISTER-SUPERVISOR [employer] 07/16/2024 9:23 PM MACHINE COMPOSITOR - 07/19/2024 5:51 PM MACHINE COMPOSITOR Hospital Encounter [facility] [address]S ACUTE [address] [place] [phone] Quan Gan MD Arshad, Iqra, MD Bastin, Taylor J, MD Morreale, Peter J III, MD Emergency Medicine Discharge Disposition: Senior Care Facility 07/16/2024 Travel 06/07/2024 5:04 PM MACHINE COMPOSITOR - 06/09/2024 9:50 PM MACHINE COMPOSITOR Hospital Encounter [facility] Early Admission Unit [address] [place] [phone] Elizabeth Hernandez MD Miller, Chad S, MD Naidoo, Shiva F, MD Heis, Farah, MD Internal Medicine Discharge Disposition: Other Facility Not Defined Elsewhere 06/07/2024 Travel 05/15/2024 10:08 AM MACHINE COMPOSITOR - 05/15/2024 11:44 PM MACHINE COMPOSITOR Emergency [facility] EMERGENCY DEPARTMENT [address] [place] [phone] Caio Elder MD Garcia, Andrew M, MD Abdominal pain, generalized (Primary Dx); Diverticulosis; Prostate enlargement; Nephrolithiasis Discharge Disposition: Senior Care Facility 05/15/2024 Travel from Last 3 Months Immunizations Name [...] and heating? Not hard at all 08/06/2024 [facility] of Occupat ional Health - Occupational Stress [...] in a half-way (including now)? No 06/19/2023 Housing Stability Vital Sign Answer Vinay e Recorded In the last 12 months, was t here a time when you were not able to pay the mortgage or rent on time? No 08/06/2024 In the past 12 months, how m any times have you moved where you were living? 1 08/06/2024 At any time in the past 12 m [facility], were you homeless or living in a half-way (including now)? No 08/06/2024 Sex and Gender [...] 72.6 kg (160 lb) 08/04/2024 12:00 AM MACHINE COMPOSITOR Height 175.3 cm (5' 9.02 ) 08/04/2024 12:[address] Body Mass Index 23.62 08/04/2024 12:00 AM MACHINE COMPOSITOR Plan of Treatment Upcoming Encounters Date Type Department Care Team ([facility] Contact Info) Description 12/05/2024 1:00 PM CDT Office Visit [facility] - Neurology [address] [facility] [facility] [place] [phone] Sean Raymundo DO [address] [place] [address] Health Maintenance Due Date Last Done Comments [...] 1-dose series) 2021 COVID-19 VACCINE ( - 2023- season) 2024 04/06/2021, 07/02/2020, 06/11/2020 INFLUENZA VACCINE (#1) 2024 2, 03/16/2021, 03/07/2020, Additional history exists DEPRESSION SCREENING 05/30/2024 DTAP/TDAP/TD VACCINES (3 - Td or Tdap) 06/06/2027 06/06/2017, 03/23/2017 SCREENING FOR DIABETES 08/07/2027 5, 08/05/2024, 08/05/2024, Additional history exists HEPATITIS C SCREENING Completed [...] complete this topic MENINGOCOCCAL (Group B) VACCINE SHARED DECISION-MAKING Aged Out No longer eligible based on patient's age to complete this topic MENINGOCOCCAL GROUPS A/C/Y/W VACCINE Aged Out No longer eligible based on patient's age to complete this topic Procedures Procedure Name Priority Date/Time Associated Diagnosis Comments IR PERC GJ TUBE REPLACEMENT Routine 08/06/2024 3:07 PM CDT PEG (percutaneous endoscopic gastrostomy) status (HCC) CT ABDOMEN WO CONTRAST Routine 08/06/2024 11:00 AM CDT Nausea without vomiting PEG (percutaneous endoscopic gastrostomy) status (HCC) GLUCOSE - POINT OF CARE Routine 08/06/2024 6:45 AM CDT XR ABDOMEN KUB PORTABLE STAT 08/05/2024 6:14 AM CDT Nausea and vomiting, unspecified vomiting type GLUCOSE - POINT OF CARE Routine 08/05/2024 1:43 AM MACHINE COMPOSITOR CBC W/O DIFFERENTIAL Routine 08/05/2024 1:02 AM MACHINE COMPOSITOR Nausea without vomiting PT-INR [facility] Routine 08/05/2024 1:02 AM MACHINE COMPOSITOR Nausea without vomiting MAGNESIUM BLOOD Routine 08/05/2024 1:02 AM MACHINE COMPOSITOR Nausea without vomiting RENAL FUNCTION PANEL Routine 08/05/2024 1:02 AM MACHINE COMPOSITOR Nausea without vomiting CBC W/O DIFFERENTIAL Routine 08/04/2024 12:12 PM MACHINE COMPOSITOR Nausea without vomiting PSA FREE + TOTAL PANEL AM Draw 08/04/2024 12:12 PM MACHINE COMPOSITOR Acute cystitis without hematuria PT-INR [facility] Routine 08/04/2024 12:12 PM MACHINE COMPOSITOR Nausea without vomiting MAGNESIUM BLOOD Routine 08/04/2024 12:12 PM MACHINE COMPOSITOR Nausea without vomiting RENAL FUNCTION PANEL Routine 08/04/2024 12:12 PM MACHINE COMPOSITOR Nausea without vomiting CULTURE URINE STAT 08/03/2024 8:53 AM MACHINE COMPOSITOR Acute cystitis without hematuria HEMOGLOBIN A1C RINKU 08/03/2024 5:18 AM MACHINE COMPOSITOR Nausea without vomiting CBC W/O DIFFERENTIAL STAT 08/03/2024 5:18 AM MACHINE COMPOSITOR Nausea without vomiting PT-INR [facility] STAT 08/03/2024 5:18 AM MACHINE COMPOSITOR Nausea without vomiting MAGNESIUM BLOOD STAT 08/03/2024 5:18 AM MACHINE COMPOSITOR Nausea without vomiting RENAL FUNCTION PANEL STAT 08/03/2024 5:18 AM MACHINE COMPOSITOR Nausea without vomiting TYPE + SCREEN PANEL STAT 08/02/2024 9 :[address] CHEST ABDOMEN PELVIS W CONT STAT 08/02/2024 9:42 PM MACHINE COMPOSITOR Nausea without vomiting XR CHEST 1VW PORTABLE STAT 08/02/2024 5:15 PM MACHINE COMPOSITOR Nausea without vomiting URINALYSIS REFLEX TO MICROSCOPIC NO CULTURE STAT 08/02/2024 5:08 PM MACHINE COMPOSITOR PT-INR [facility] STAT 08/02/2024 5:08 PM MACHINE COMPOSITOR COMPREHENSIVE METABOLIC PANEL STAT 08/02/2024 5:08 PM MACHINE COMPOSITOR LIPASE BLOOD STAT 08/02/2024 5:08 PM MACHINE COMPOSITOR CBC W AUTO DIFFERENTIAL STAT 08/02/2024 5:08 PM MACHINE COMPOSITOR XR CHEST 1VW PORTABLE STAT 08/02/2024 2:33 AM MACHINE COMPOSITOR Abdominal pain, unspecified abdominal location LIPASE BLOOD STAT 08/02/2024 2:03 AM MACHINE COMPOSITOR COMPREHENSIVE METABOLIC PANEL STAT 08/02/2024 2:03 AM MACHINE COMPOSITOR CBC W AUTO DIFFERENTIAL STAT 08/02/2024 2:[address] CHEST ABDOMEN PELVIS W CONT STAT 07/28/2024 12:25 AM MACHINE COMPOSITOR Generalized abdominal pain COMPREHENSIVE METABOLIC PANEL STAT 07/27/2024 6:26 PM MACHINE COMPOSITOR CBC W AUTO DIFFERENTIAL STAT 07/27/2024 6:26 PM MACHINE COMPOSITOR TROPONIN-I HIGH SENSITIVE BASELINE + 1HR STAT 07/27/2024 6:26 PM MACHINE COMPOSITOR MAGNESIUM BLOOD STAT 07/27/2024 6:26 PM MACHINE COMPOSITOR LIPASE BLOOD STAT 07/27/2024 6:26 PM MACHINE COMPOSITOR EKG 12-LEAD Routine 07/27/2024 5:34 PM MACHINE COMPOSITOR Generalized abdominal pain XR CHEST 1VW PORTABLE Routine 07/27/2024 12:39 PM MACHINE COMPOSITOR Nausea and vomiting, unspecified vomiting type GLUCOSE - POINT OF CARE Routine 07/19/2024 5:00 PM MACHINE COMPOSITOR GLUCOSE - POINT OF CARE Routine 07/19/2024 12:10 PM MACHINE COMPOSITOR GLUCOSE - POINT OF CARE Routine 07/19/2024 8:10 AM MACHINE COMPOSITOR CBC W AUTO DIFFERENTIAL Routine 07/19/2024 5:27 AM MACHINE COMPOSITOR Coffee ground emesis GLUCOSE - POINT OF CARE Routine 07/19/2024 3:34 AM MACHINE COMPOSITOR GLUCOSE - POINT OF CARE Routine 07/18/2024 11:33 PM MACHINE COMPOSITOR GLUCOSE - POINT OF CARE Routine 07/18/2024 8:01 PM MACHINE COMPOSITOR PATHOLOGY TISSUE Routine 07/18/2024 4:27 PM MACHINE COMPOSITOR Coffee ground emesis [place] ED EGD FLEX TRANSORAL DX 07/18/2024 4:00 PM MACHINE COMPOSITOR Coffee ground emesis EGD Routine 07/18/2024 3:52 PM MACHINE COMPOSITOR GLUCOSE - POINT OF CARE Routine 07/18/2024 12:11 PM MACHINE COMPOSITOR GLUCOSE - POINT OF CARE Routine 07/18/2024 11:44 AM MACHINE COMPOSITOR CBC W AUTO DIFFERENTIAL Routine 07/18/2024 8:07 AM MACHINE COMPOSITOR Coffee ground emesis PT-INR [facility] Routine 07/18/2024 8:07 AM MACHINE COMPOSITOR Nausea and vomiting, unspecified vomiting type VALPROIC ACID LEVEL Routine 07/18/2024 8 :07 AM MACHINE COMPOSITOR Nausea and vomiting, unspecified vomiting type PHOSPHORUS BLOOD AM Draw 07/18/2024 8:07 AM MACHINE COMPOSITOR Coffee ground emesis COMPREHENSIVE METABOLIC PANEL AM Draw 07/18/2024 8:07 AM MACHINE COMPOSITOR Coffee ground emesis MAGNESIUM BLOOD AM Draw 07/18/2024 8:07 AM MACHINE COMPOSITOR Coffee ground emesis GLUCOSE - POINT OF CARE Routine 07/18/2024 7:42 AM MACHINE COMPOSITOR GLUCOSE - POINT OF CARE Routine 07/18/2024 3:31 AM MACHINE COMPOSITOR GLUCOSE - POINT OF CARE Routine 07/17/2024 11:36 PM MACHINE COMPOSITOR GLUCOSE - POINT OF CARE Routine 07/17/2024 8:42 PM MACHINE COMPOSITOR CARDIAC EKG ORDER 07/17/2024 1:4 4 PM MACHINE COMPOSITOR URINE MICROSCOPIC ONLY REFLEX TO CULTURE STAT 07/17/2024 9:58 AM MACHINE COMPOSITOR URINALYSIS REFLEX MICROSCOPIC REFLEX CULTURE STAT 07/17/2024 9:58 AM MACHINE COMPOSITOR CULTURE URINE STAT 07/17/2024 9:58 AM MACHINE COMPOSITOR CBC W AUTO DIFFERENTIAL STAT 07/17/2024 8:31 AM MACHINE COMPOSITOR Coffee ground emesis TROPONIN-I HIGH SENSITIVE REFLEX 1HOUR Timed 07/17/2024 12:03 AM MACHINE COMPOSITOR CBC W AUTO DIFFERENTIAL STAT 07/17/2024 12:03 AM MACHINE COMPOSITOR SARS-COV-2 (COVID-19) FLU A/B RSV PCR RAPID STAT 07/17/2024 12:[address] ABDOMEN PELVIS W CONTRAST STAT 07/16/2024 11:41 PM MACHINE COMPOSITOR Nausea and vomiting, unspecified vomiting type Abdominal distention Other constipation CK BLOOD STAT 07/16/2024 10:44 PM MACHINE COMPOSITOR TROPONIN-I HIGH SENSITIVE BASELINE + 1HR STAT 07/16/2024 10:44 PM MACHINE COMPOSITOR LIPASE BLOOD STAT 07/16/2024 10:44 PM MACHINE COMPOSITOR LACTIC ACID BLOOD REFLEX TO REPEAT STAT 07/16/2024 10:44 PM MACHINE COMPOSITOR COMPREHENSIVE METABOLIC PANEL STAT 07/16/2024 10:44 PM MACHINE COMPOSITOR XR CHEST 1VW PORTABLE STAT 07/16/2024 10:28 PM MACHINE COMPOSITOR Nausea and vomiting, unspecified vomiting type CBC W/O DIFFERENTIAL AM Draw 06/09/2024 1:20 AM MACHINE COMPOSITOR GLUCOSE - POINT OF CARE Routine 06/08/2024 6:22 PM MACHINE COMPOSITOR GLUCOSE - POINT OF CARE Routine 06/08/2024 1:12 PM MACHINE COMPOSITOR PHOSPHORUS BLOOD STAT 06/08/2024 4:11 AM MACHINE COMPOSITOR MAGNESIUM BLOOD STAT 06/08/2024 4:11 AM MACHINE COMPOSITOR LIPID PROFILE STAT 06/08/2024 4:11 AM MACHINE COMPOSITOR CBC W/O DIFFERENTIAL STAT 06/08/2024 4:11 AM MACHINE COMPOSITOR BASIC METABOLIC PANEL (CALCIUM TOTAL) STAT 06/08/2024 4:11 AM MACHINE COMPOSITOR PT-INR [facility] STAT 06/08/2024 4:11 AM MACHINE COMPOSITOR URINALYSIS REFLEX MICROSCOPIC REFLEX CULTURE STAT 06/07/2024 10:24 PM MACHINE COMPOSITOR LIPASE BLOOD STAT 06/07/2024 8:01 PM MACHINE COMPOSITOR COMPREHENSIVE METABOLIC PANEL STAT 06/07/2024 8:01 PM MACHINE COMPOSITOR CBC W AUTO DIFFERENTIAL STAT 06/07/2024 8:01 PM MACHINE COMPOSITOR URINALYSIS REFLEX MICROSCOPIC REFLEX CULTURE STAT 05/15/2024 6:[address] CHEST ABDOMEN PELVIS W CONT STAT 05/15/2024 2:44 PM MACHINE COMPOSITOR Abdominal pain, generalized CBC W AUTO DIFFERENTIAL STAT 05/15/2024 12:40 PM MACHINE COMPOSITOR COMPREHENSIVE METABOLIC PANEL STAT 05/15/2024 12:40 PM MACHINE COMPOSITOR MAGNESIUM BLOOD STAT 05/15/2024 12:40 PM MACHINE COMPOSITOR PHOSPHORUS BLOOD STAT 05/15/2024 12:4 0 PM MACHINE COMPOSITOR HEPATITIS C AB SCREEN RFLX NAAT QUANT Routine 09/01/2022 2:05 AM CDT HIV-1 HIV-2 ANTIBODY + HIV P24 AG PANEL Routine 09/01/2022 2:05 AM CDT from Last 3 Months or Most Recently Relevant to Health Maintenance Results * IR Perc GJ Tube Replacement (08/06/2024 3:07 PM CDT) Anatomical Region Laterality Modality Abdomen X-Ray Angiograph y 08/06/2024 3:22 PM CDT Impressions 08/06/2024 3:35 PM CDT Impression: Successful exchange of the existing 18 Tristanian gastrojejunostomy catheter for a new 18 Tristanian gastrojejunostomy catheter under fluoroscopic guidance, as described [...] performed/supervised the entire procedure. > Interpreting Provider: Eron Payton on 08/06/2024 3:35 PM Narrative 08/06/2024 [...] further evaluation and possible exchange. Operators: 1.Dr. Eron Payton M.D., Attending Physician Anesthesia: 1.Local anesthesia with lidocaine jelly Procedure: Exchange of the existing 18 Tristanian gastrojejunostomy catheter for a new 18 Tristanian gastrojejunostomy catheter under fluoroscopic guidance. Start time: 1435 End time: 1451 Fluoroscopic time: 4.0 minutes Contrast: 10 mL of Isovue-300 Procedure in detail: The procedure, risks, and possible complications were explained to the patient in detail, and informed consent was obtained. The patient was placed supine on the procedure table. A marketing sales consultant film of abdomen was obtained, which [...] was removed over the wire. A 4 Tristanian Kumpe catheter was advanced over the wire and using this combination, was advanced into the jejunum. The Kumpe catheter was then removed over the wire. A new 18 Tristanian gastrojejunostomy catheter was then advanced over the [...] complications associated with the procedure. Procedure Note Eron Payton MD - 08/06/2024 PROCEDURE: IR PERC GJ TUBE REPLACEMENT DATE/TIME OF EXAM: 08/06/2024 3:07 PM CLINICAL INFORMATION: None relevant/not provided if blank. Indication: Z93.1: PEG (percutaneous endoscopic gastrostomy) status([facility]) History: 64-year-old male with past history of traumatic brain injurywith seizures and dysphagia managed by gastrojejunostomy tube placement.Patient now presents with concern for dislodgment of the GJ tube. Vascular interventional radiology service has been consulted for furtherevaluation and possible exchange. Operators: 1.Dr. Eron Payton M.D., Attending Physician Anesthesia: 1.Local anesthesia with lidocaine jelly Procedure: Exchange of the existing 18 Tristanian gastrojejunostomy catheter for a new 18 Tristanian gastrojejunostomy catheter under fluoroscopicguidance. Start time: 1435 End time: 1451 Fluoroscopic time: 4.0 minutes Contrast: 10 mL of Isovue-300 Procedure in detail: The procedure, risks, and possible complications were explained to the patient in detail, and informed consent was obtained. The patient was placed supine on the procedure table. A marketing sales consultant film of abdomen wasobtained, which showed the [...] was removed over the wire. A 4 Tristanian Kumpe catheter wasadvanced over the wire and using this combination, was advanced into the jejunum. The Kumpe catheter was then removed over the wire. A new 18 Tristanian gastrojejunostomy catheter was then advanced over the guidewire under fluoroscopic guidance. The catheter was secured by balloon insufflation. Hand injection of contrast through the gastric port confirmedintraluminal position within the stomach. Hand injection of contrast through thejejunal port confirmed intraluminal position within the jejunum. Steriledressing was applied. The patient tolerated the procedure well and was transferred to theholding area in stable condition. There were no immediate complicationsassociated with the procedure. Impression: Successful exchange of the existing 18 Frenchgastrojejunostomy catheter for a new 18 Tristanian gastrojejunostomy catheter underfluoroscopic guidance, as described above. [...] and performed/supervised the entireprocedure. > Interpreting Provider: Eron Payton on 08/06/2024 3:35 PM Gaurav Leroy PA-C IR ORDERABLES * CT Abdomen Wo [...] > Dictated by Yessica Lovell MD, MD (residential program worker). I, Bebo Kuo MD have personally reviewed and interpreted this examination/study. > Interpreting Provider: Bebo Kuo MD on 08/06/2024 1:31 PM Narrative 08/06/2024 1:31 PM CDT PROCEDURE: CT ABDOMEN WO CONTRAST, DATE/TIME OF EXAM: 08/06/2024 11:01 AM, LOCATION [facility] INDICATION: R11.0: Nausea without vomiting Z93.1: PEG [...] CONTRAST, DATE/TIME OF EXAM: 08/06/2024 11:01AM, LOCATION [facility] INDICATION: R11.0: Nausea without vomiting Z93.1: PEG [...] > Dictated by Yessica Lovell MD, MD (residential program worker). I, Bebo Kuo MD have personally reviewed and interpreted this examination/study. > Interpreting Provider: Bebo Kuo MD on 51:31 PM Yary James MD CT ORDERABLES * GLUCOSE - POINT OF CARE (08/06/2024 6:45 AM CDT) Only the most recent of16 resultswithin the time period is included. Glucose WB/POC 92 70 - 99 mg/dL 08/06/2024 6:46 AM CDT [facility] Specimen Type Cap Fingerstick 2024 6:46 AM CDT [facility] Blood BLOOD SPECIMEN / Unknown 08/06/2024 6:45 AM CDT 08/06/2024 6:46 AM CDT Yary James MD LAB - POINT OF CARE ORDERABLES [address] [phone], [facility] [phone] * XR Abdomen Kub Portable (08/05/2024 6:14 AM CDT) Anatomical Region Laterality Modality Abdomen Digital Radiogra phy 08/05/2024 9:25 AM CDT Impressions 08/05/2024 5:10 PM CDT IMPRESSION: No radiographic evidence of acute intra-abdominal process. Report dictated by Sierra Lyman Dr, MD (residential program worker). IRamon MD have personally reviewed and interpreted this examination/study. > Interpreting Provider: Ramon Ross MD on 08/05/2024 5:10 PM Narrative 08/05/2024 5:10 PM CDT PROCEDURE: XR ABDOMEN KUB PORTABLE, DATE/TIME OF EXAM: 08/05/2024 6:14 AM, LOCATION [facility] INDICATION: R11.2: Nausea and vomiting, unspecified vomiting [...] PORTABLE, DATE/TIME OF EXAM: 08/05/2024 6:14AM, LOCATION [facility] INDICATION: R11.2: Nausea and vomiting, unspecified vomiting [...] Report dictated by Sierra Lyman Dr, MD (residential program worker). I, Ramon Ross MD have personally reviewed and interpreted this examination/study. > Interpreting Provider: Ramon Ross MD on 08/05/2024 5:10 PM Neha Palomino MD DIAGNOSTIC IMAGING O RDERABLES * PT-INR [facility] (08/05/2024 1:02 AM MACHINE COMPOSITOR) Only the most recent of6 resultswithin the time period is included. PT 13.8 12.1 - 14.8 Seconds 08/05/2024 3:57 AM CDT [facility] INR 1.1 See Comment 08/05/2024 3:57 AM T [facility] Comment:The suggested therap eutic range for standard coumadin (warfarin) therapy is an INR of 2.0-3.0. For high-risk patients (Mechanical Mitral Valve Prosthesis, etc.), the suggested prophylactic therapeutic range is an INR of 2.5-3.5. Blood BLOOD SPECIMEN / Unknown Lab Venipuncture / Unknown 08/05/2024 1:02 AM MACHINE COMPOSITOR 08/05/2024 3:37 AM CDT Lowell Cao DO LAB - COAGULATION OR DERABLES [facility] LABORATORY [facility] [address] [place] [address], [facility] [phone] * (ABNORMAL) CBC W/O DIFFERENTIAL (08/05/2024 1:02 AM MACHINE COMPOSITOR) Only the most recent of5 resultswithin the time period is included. Pathologist [facility] WBC 6.3 4.0 - 10.7 x10E9/L 08/05/2024 3:57 AM [facility] RBC Count 4.08(L) 4.30 - 5.80 x10E12/L 08/05/2024 3:57 AM [facility] Hemoglobin 12.8(L) 13.3 - 17.5 g/dL 08/05/2024 3:57 AM [facility] Hematocrit 38.5(L) 38.7 - 51.1 % 08/05/2024 3:57 AM [facility] MCV 94.4 80.0 - 98.0 fL 08/05/2024 3:57 AM [facility] MCH 31.4 26.7 - 33.6 pg 08/05/2024 3:57 AM [facility] MCHC 33.2 31.7 - 36.3 g/dL 08/05/2024 3:57 AM [facility] RDW-CV 13.2 11.3 - 14.8 % 08/05/2024 3:57 AM [facility] Platelet Count 187 150 - 420 x10E9/L 08/05/2024 3:57 AM [facility] MPV 13.2(H) 7.8 - 11.4 fL 08/05/2024 3:57 AM [facility] Blood BLOOD SPECIMEN / Unknown Lab Venipuncture / Unknown 08/05/2024 1:02 AM MACHINE COMPOSITOR 08/05/2024 3:37 AM [facility] Marianne Daniels MD LAB - HEMATOLOGY ORD ERABLES [facility] LABORATORY [facility] [address] [place] [phone], [facility] [phone] * (ABNORMAL) RENAL FUNCTION PANEL (08/05/2024 1:02 AM MACHINE COMPOSITOR) Only the most recent of3 resultswithin the time period is included. Pathologist [facility] BUN 16 7 - 26 mg/dL 08/05/2024 4:02 AM [facility] Creatinine 0.63(L) 0.71 - 1.16 mg/dL 08/05/2024 4:02 AM [facility] Sodium 140 136 - 145 mmol/L 08/05/2024 4:02 AM [facility] Potassium 4.0 3.5 - 4.5 mmol/L 08/05/2024 4:02 AM [facility] Chloride 107 98 - 107 mmol/L 08/05/2024 4:02 AM [facility] CO2 24 22 - 29 mmol/L 08/05/2024 4:02 AM [facility] Glucose 79 70 - 99 mg/dL 08/05/2024 4:02 AM [facility] Albumin 3.3(L) 3.4 - 5.0 g/dL 08/05/2024 4:02 AM [facility] Calcium 8.9 8.4 - 10.2 mg/dL 08/05/2024 4:02 AM [facility] Phosphorus 3.6 2.8 - 5.1 mg/dL 08/05/2024 4:02 AM [facility] Anion Gap 9 6 - 16 08/05/2024 4:02 AM [facility] BUN/Creatinine Ratio 25(H) 7 - 23 08/05/2024 4:02 AM [facility] Osmolality Calculated 290 275 - 295 mOsm/kg 08/05/2024 4:02 AM [facility] eGFR by CKD-EPI >90 >=90 mL/min/1.7 3 m2 08/05/2024 4:02 AM [facility] Blood BLOOD SPECIMEN / Unknown Lab Venipuncture / Unknown 08/05/2024 1:02 AM MACHINE COMPOSITOR 08/05/2024 3:37 AM [facility] Lowell Cao DO LAB - CHEMISTRY MARSHAL MEDEROS [facility] [address] [place] [address], [facility] [phone] * MAGNESIUM BLOOD (08/05/2024 1:02 AM MACHINE COMPOSITOR) Only the most recent of7 resultswithin the time period is included. Magnesium 1.9 1.6 - 2.6 mg/dL 08/05/2024 4:02 AM CDT [facility] Blood BLOOD SPECIMEN / Unknown Lab Venipuncture / Unknown 08/05/2024 1:02 AM MACHINE COMPOSITOR 08/05/2024 3:37 AM CDT Lowell Cao DO LAB - CHEMISTRY MARSHAL MEDEROS [facility] [address] [place] [phone], [facility] [phone] * PSA FREE + TOTAL PANEL (08/04/2024 12:12 PM MACHINE COMPOSITOR) Pathologist [facility] PSA Total 1.7 0.0 - 4.0 ng/mL 08/04/2024 1:33 PM [facility] PSA Free 0.21 0.00 - 0.50 ng/mL 08/04/2024 1:33 PM [facility] PSA % Free 12 See Comment % 08/04/2024 1:33 PM [facility] Comment: [facility] Clinical Laboratory uses the [employer] Seasonal method for Total and Free PSA measurements. [...] Free and/or Total PSA alone. Distribution of TRUSS MAKER % Free PSA Values for specimens with TRUSS MAKER Total PSA values between 4.0 and 10.0 ng/mL: % Free PSA Ranges <10.0 10.0-15.0 15.0-20.0 20.0-26.0 >26.0 Number of ----- --------- --------- --------- ----- Subjects Biopsy --------- ------ Negative 307 9.4 22.5 25.4 24.8 17.9 Positive 123 27.6 30.9 17.9 15.4 8.1 PSA % Free 08/04/2024 1:33 PM MACHINE COMPOSITOR [facility] Blood BLOOD SPECIMEN / Unknown Lab Venipuncture / Unknown 08/04/2024 12:12 PM MACHINE COMPOSITOR 08/04/2024 12:42 PM MACHINE COMPOSITOR Marianne Daniels MD LAB - CHEMISTRY MARSHAL Diana Organization Address City/State/ZIP Co de Phone Number [facility] LABORATORY [address] [address], [facility] [phone] * (ABNORMAL) CULTURE URINE (08/03/2024 8:53 AM MACHINE COMPOSITOR) Only the most recent of2 resultswithin the time period is included. Culture Urine 50,000-100,000 CFU/mL Pseudomonas aeruginosa(A) JELLY 08/07/2024 6:04 AM [facility] MICROBIOLOGY Comment:This is an appended report. These results have been appended to a previously final verified report. Culture Urine 50,000-100,000 CFU/mL Corynebacterium striatum(A) JELLY 08/07/2024 6:04 AM [facility] [employer] MICROBIOLOGY Comment:This is an appended report. These results have been appended to a previously final verified report. Culture Urine 50,000-100,000 CFU/mL Providencia stuartii(A) JELLY 08/07/2024 6:04 AM [facility] MICROBIOLOGY Urine URINE SPECIMEN OBTAINED BY CLEAN CATCH PROCEDURE / Unknown Collection / Unknown 08/03/2024 8:53 AM MACHINE COMPOSITOR 08/03/2024 8:56 AM MACHINE COMPOSITOR Narrative Organism Antibiotic Method Susceptibility Pseudomonas aeruginosa [...] Daniels MD LAB - MICROBIOLOGY O RDERABLES [facility] MICROBIOLOGY [address] [place] [address], [facility] [phone] * HEMOGLOBIN A1C (08/03/2024 5:18 AM MACHINE COMPOSITOR) Hemoglobin A1c 5.3 <=5.6 % 08/03/2024 8:24 AM [facility] Estimated Average Glucose 105 mg/dL 08/03/2024 8:24 AM [facility] Comment: HbA1c Interpretation: Normal : < 5.7% Pre-diabetes: 5.7-6.4% Diabetes: Equal to or greater than 6.5% Test results diagnostic of diabetes should be repeated for confirmation. Treatment target values recommended by ADA and other clinical organizations should be used to evaluate metabolic control in patients. Reference: [place] [employer], Standards of Care in Diabetes -2020 In patients 70 years and older consider HbA1c target range of 7.0-7.5% (Reference: Lukas Matamoros et al. JAMDA. 2012) The Sebia assay for the measurement of HbA1c is a National Glycohemoglobin Standardization Program (NGSP) certified method. Blood BLOOD SPECIMEN / Unknown Venipuncture / Unknown 08/03/2024 5:18 AM MACHINE COMPOSITOR 08/03/2024 5:24 AM MACHINE COMPOSITOR Lowell Cao DO LAB - CHEMISTRY ORDE GATITO [facility] [address] [place] [address], [place] [phone] * TYPE + SCREEN PANEL (08/02/2024 9:53 PM MACHINE COMPOSITOR) Antibody Screen NEG 10:41 PM MACHINE COMPOSITOR [facility] BLOOD BANK LAB ABO Rh O POS 08/02/2024 10:41 PM MACHINE COMPOSITOR [facility] BLOOD BANK LAB Blood Bank BLOOD SPECIMEN / Unknown Venipuncture / Unknown 08/02/2024 9:53 PM MACHINE COMPOSITOR 08/02/2024 10:05 PM MACHINE COMPOSITOR Elmo Johnson MD LAB - BLOOD BANK ORD ERABLES [facility] BLOOD BANK LAB [address] [place] [address], [facility] [phone] * CT Chest Abdomen Pelvis W Cont (08/02/2024 9:42 PM MACHINE COMPOSITOR) Only the most recent of3 resultswithin the time period is included. Anatomical Region Laterality Modality Chest, Abdomen, Pelvis Computed Tomography 08/02/2024 9:56 PM MACHINE COMPOSITOR Impressions 08/02/2024 11:19 PM MACHINE COMPOSITOR Impression: 1.Trace left-sided pleural effusion, bilateral dependent [...] cystitis. > Dictated by Justin Burrell MD (residential program worker). I, Bebo Kuo MD have personally reviewed and interpreted this examination/study. > Interpreting Provider: Bebo Kuo MD on 08/02/2024 11:19 PM Narrative 08/02/2024 11:19 PM MACHINE COMPOSITOR PROCEDURE: CT CHEST ABDOMEN PELVIS W CONT, DATE/TIME OF EXAM: 08/02/2024 9:43 PM, LOCATION [facility] INDICATION: R11.0: Nausea without vomiting ADDITIONAL CLINICAL [...] DATE/TIME OF EXAM: 08/02/2024 9:43 PM, LOCATION [facility] INDICATION: R11.0: Nausea without vomiting ADDITIONAL CLINICAL [...] cystitis. > Dictated by Justin Burrell MD (residential program worker). I, Bebo Kuo MD have personally reviewed and interpreted this examination/study. > Interpreting Provider: Bebo Kuo MD on 511:19 PM Elmo Johnson MD CT ORDERABLES * XR CHEST 1VW PORTABLE (08/02/2024 5:15 PM MACHINE COMPOSITOR) Only the most recent of4 resultswithin the time period is included. Anatomical Region Laterality Modality Chest Digital Radiogra phy 08/02/2024 5:27 PM MACHINE COMPOSITOR Narrative 08/03/2024 9:31 AM MACHINE COMPOSITOR PROCEDURE: XR CHEST 1VW PORTABLE, DATE/TIME OF EXAM: 08/02/2024 5:15 PM, LOCATION [facility] INDICATION: R11.0: Nausea without vomiting ADDITIONAL CLINICAL [...] abnormality. > Dictated by Meeta Leblanc MD (residential program worker) Ramon Thomason MD have personally reviewed and interpreted this examination/study. > Interpreting Provider: Ramon Ross MD on 08/03/2024 9:31 AM Procedure Note Ramon Ross MD - 08/03/2024 PROCEDURE: XR CHEST 1VW PORTABLE, DATE/TIME OF EXAM: 08/02/2024 5:15 PM, LOCATION [facility] INDICATION: R11.0: Nausea without vomiting ADDITIONAL CLINICAL INFORMATION: Ordering Provider Reason For Exam: emesis Technologist Note: Additional: COMPARISON: None. FINDINGS/IMPRESSION: Tracheostomy tube is present. Mild bibasilar atelectasis. Left retrocardiac opacification couldrepresent atelectasis or aspiration seen on previous CT chest. Trace left pleural effusion. No right pleural effusion, or pneumothorax. The cardiomediastinal silhouette is normal. No acute osseousabnormality. > Dictated by Meeta Leblanc MD (residential program worker) Ramon Thomason MD have personally reviewed and interpreted this examination/study. > Interpreting Provider: Ramon Ross MD on 08/03/2024 9:31 AM Elmo Johnson MD DIAGNOSTIC IMAGING O RDERABLES * (ABNORMAL) URINALYSIS REFLEX TO MICROSCOPIC NO CULTURE (08/02/2024 5:08 PM MACHINE COMPOSITOR) Color UA Yellow Yellow, Straw 08/02/2024 5:46 PM MACHINE COMPOSITOR [facility] Clarity UA Turbid(A) Clear 08/02/2024 5:46 PM [facility] Glucose UA Normal Normal 08/02/2024 5:46 PM [facility] Bilirubin UA Negative Negative 08/02/2024 5:46 PM [facility] Ketone UA Negative Negative 08/02/2024 5:46 PM [facility] Specific [place] UA 1.015 1.005 - 1.030 08/02/2024 5:46 PM [facility] Blood UA Negative Negative 08/02/2024 5:46 PM [facility] pH UA 7.0 5.0 - 9.0 pH 08/02/2024 5:46 PM [facility] Protein UA Trace(A) Negative 08/02/2024 5:46 PM [facility] Urobilinogen UA 3.0(A) Normal mg/dL 08/02/2024 5:46 PM [facility] Nitrite UA Positive(A) Negative 08/02/2024 5:46 PM [facility] Leukocyte UA 500 NOEL/uL(A) Negative 08/02/2024 5:46 PM [facility] RBC UA 11-20(A) 0 - 5 # /hpf 08/02/2024 5:46 PM [facility] WBC UA >100(A) 0 - 5 # /hpf 08/02/2024 5:46 PM [facility] Bacteria UA 1+(A) None Seen 08/02/2024 5:46 PM [facility] Squamous Epithelial Cells None Seen 0 - 5 /hpf 08/02/2024 5:46 PM [facility] Urine URINE SPECIMEN OBTAINED BY SINGLE CATHETERIZATION OF URINARY BLADDER / Unknown Collection / Unknown 08/02/2024 5:08 PM MACHINE COMPOSITOR 08/02/2024 5:11 PM MACHINE COMPOSITOR Elmo Johnson MD LAB - URINALYSIS ORD ERABLES [facility] [address] [place] [address], [place] [phone] * (ABNORMAL) CBC W AUTO DIFFERENTIAL (08/02/2024 5:08 PM MACHINE COMPOSITOR) Only the most recent of9 resultswithin the time period is included. WBC 8.4 4.0 - 10.7 x10E9/L 08/02/2024 5:22 PM [facility] RBC Count 4.27(L) 4.30 - 5.80 x10E12/L 08/02/2024 5:22 PM [facility] Hemoglobin 13.6 13.3 - 17.5 g/dL 08/02/2024 5:22 PM [facility] Hematocrit 41.1 38.7 - 51.1 % 08/02/2024 5:22 PM [facility] MCV 96.3 80.0 - 98.0 fL 08/02/2024 5:22 PM [facility] MCH 31.9 26.7 - 33.6 pg 08/02/2024 5:22 PM [facility] MCHC 33.1 31.7 - 36.3 g/dL 08/02/2024 5:22 PM [facility] RDW-CV 13.2 11.3 - 14.8 % 08/02/2024 5:22 PM [facility] Platelet Count 250 150 - 420 x10E9/L 08/02/2024 5:22 PM [facility] MPV 13.0(H) 7.8 - 11.4 fL 08/02/2024 5:22 PM [facility] Neutrophil % 68.1 41.0 - 74.0 % 08/02/2024 5:22 PM [facility] Lymphocyte % 22.2 17.0 - 47.0 % 08/02/2024 5:22 PM [facility] Monocyte % 6.8 3.0 - 11.0 % 08/02/2024 5:22 PM [facility] Eosinophil % 2.3 0.0 - 7.0 % 08/02/2024 5:22 PM [facility] Basophil % 0.4 0.0 - 1.6 % 08/02/2024 5:22 PM [facility] Immature Granulocytes % 0.2 0.0 - 1.0 % 08/02/2024 5:22 PM [facility] Neutrophil Absolute 5.70 1.60 - 7.50 x10E9/L 08/02/2024 5:22 PM [facility] Lymphocyte Absolute 1.86 1.00 - 4.40 x10E9/L 08/02/2024 5:22 PM [facility] Monocyte Absolute 0.57 0.15 - 1.00 x10E9/L 08/02/2024 5:22 PM [facility] Eosinophil Absolute 0.19 0.00 - 0.60 x10E9/L 08/02/2024 5:22 PM [facility] Basophil Absolute 0.03 0.00 - 0.13 x10E9/L 08/02/2024 5:22 PM [facility] Blood BLOOD SPECIMEN / Unknown Venipuncture / Unknown 08/02/2024 5:08 PM MACHINE COMPOSITOR 08/02/2024 5:14 PM MACHINE COMPOSITOR Elmo Johnson MD LAB - HEMATOLOGY ORD ERABLES [facility] [address] [place] [phone], [facility] [phone] * (ABNORMAL) COMPREHENSIVE METABOLIC PANEL (08/02/2024 5:08 PM MACHINE COMPOSITOR) Only the most recent of7 resultswithin the time period is included. BUN 14 7 - 26 mg/dL 08/02/2024 5:44 PM [facility] Creatinine 0.57(L) 0.71 - 1.16 mg/dL 08/02/2024 5:44 PM [facility] Sodium 140 136 - 145 mmol/L 08/02/2024 5:44 PM [facility] Potassium 4.5 3.5 - 4.5 mmol/L 08/02/2024 5:44 PM [facility] Chloride 105 98 - 107 mmol/L 08/02/2024 5:44 PM [facility] CO2 25 22 - 29 mmol/L 08/02/2024 5:44 PM [facility] Glucose 102(H) 70 - 99 mg/dL 08/02/2024 5:44 PM [facility] Calcium 9.6 8.4 - 10.2 mg/dL 08/02/2024 5:44 PM [facility] Protein Total 7.6 6.0 - 8.3 g/dL 08/02/2024 5:44 PM [facility] Albumin 3.8 3.4 - 5.0 g/dL 08/02/2024 5:44 PM [facility] Bilirubin Total 0.4 0.2 - 1.2 mg/dL 08/02/2024 5:44 PM [facility] Alkaline Phosphatase 94 40 - 150 U/L 08/02/2024 5:44 PM [facility] ALT 14 5 - 55 U/L 08/02/2024 5:44 PM [facility] AST 25 5 - 34 U/L 08/02/2024 5:44 PM [facility] Anion Gap 10 6 - 16 08/02/2024 5:44 PM [facility] BUN/Creatinine Ratio 25(H) 7 - 23 08/02/2024 5:44 PM [facility] Osmolality Calculated 291 275 - 295 mOsm/kg 08/02/2024 5:44 PM [facility] Albumin/Globulin Ratio 1.0(L) 1.1 - 2.3 08/02/2024 5:44 PM [facility] eGFR by CKD-EPI >90 >=90 mL/min/1.7 3 m2 08/02/2024 5:44 PM [facility] Blood BLOOD SPECIMEN / Unknown Venipuncture / Unknown 08/02/2024 5:08 PM MACHINE COMPOSITOR 08/02/2024 5:14 PM MACHINE COMPOSITOR Elmo Johnson MD LAB - CHEMISTRY [facility] Organization Address City/State/ZIP Co de Phone Number [facility] [address] [place] [address], [facility] [phone] * LIPASE BLOOD (08/02/2024 5:08 PM MACHINE COMPOSITOR) Only the most recent of5 resultswithin the time period is included. Lipase 18 8 - 78 U/L 08/02/2024 5:44 PM [facility] Blood BLOOD SPECIMEN / Unknown Venipuncture / Unknown 08/02/2024 5:08 PM MACHINE COMPOSITOR 08/02/2024 5:14 PM MACHINE COMPOSITOR Narrative [facility] - 08/02/2024 5:44 PM MACHINE COMPOSITOR Lipase results from the [employer] Al[employer] analyzer may not be comparable with other methodologies. Elmo Johnson MD LAB - CHEMISTRY MARSHAL MEDEROS Performing Organization Address City/[facility]/ZIP Co de Phone Number [address] [address], [facility] [phone] * TROPONIN-I HIGH SENSITIVE BASELINE + 1HR (07/27/2024 6:26 PM MACHINE COMPOSITOR) Only the most recent of2 resultswithin the time period is included. [facility] Troponin I High Sensitive 5 <=35 ng/L 07/27/2024 7:09 PM MACHINE COMPOSITOR [facility] Blood BLOOD SPECIMEN / Unknown Venipuncture / Unknown 07/27/2024 6:26 PM MACHINE COMPOSITOR 07/27/2024 6:37 PM MACHINE COMPOSITOR Serjio Vilchis MD LAB - CHEMISTRY MARSHAL MEDEROS Performing Organization Address City/[facility]/ZIP Co de Phone Number [address] [address], [place] [phone] * EKG 12-LEAD (07/27/2024 5:34 PM MACHINE COMPOSITOR) [facility] Ventricular Rate 84 BPM H MUSE Atrial Rate 84 BPM [facility] MUSE P-R Interval 160 ms [facility] MUSE QRS Duration ms 76 ms [facility] MUSE Q-T Interval ms 364 ms [facility] MUSE QTC Calculation (Bezet) 430 ms [facility] MUSE Calculated P [place] 49 degrees SL MUSE Calculated R [place] -25 degrees [facility] MUSE Calculated T [place] 56 degrees [facility] MUSE Interpretation EKG NORMAL SINUS RHYTHM SEPTAL INFARCT , AGE UNDETERMINED INFERIOR INFARCT , AGE UNDETERMINED ABNORMAL ECG WHEN COMPARED WITH ECG OF 19-FEB-2024 17:27, SEPTAL INFARCT IS NOW PRESENT INFERIOR INFARCT IS NOW PRESENT Confirmed by MD ABENA, CLEMENTE ([id number]) on 07/30/2024 2:44:30 PM [facility] MUSE 07/27/2024 5:34 PM MACHINE COMPOSITOR 07/30/2024 2:44 PM MACHINE COMPOSITOR Serjio Vilchis MD ECG ORDERABLES [facility] MUSE * PATHOLOGY TISSUE (07/18/2024 4:27 PM [facility]) Case Report Surgical Pathology Report Case: [id number] Authorizing Provider: Clifton Trinh, Collected: 07/18/2024 04:27 PM Ordering Location: [facility] ENDOSCOPY Received: 07/19/2024 10:00 AM Pathologist: Mara Pascual MD Specimen: Gastric, Gastric Antrum Biopsies 07/20/2024 3:51 PM [facility] PATHOLOGY LAB Final Diagnosis Stomach, antrum, biopsy (A): - Superficial erosion in a background of reactive gastropathy, SEE COMMENT 07/20/2024 3:51 PM [facility] PATHOLOGY LAB Microscopic Description and Comment The gastric biopsy is several fragments of mucosa with prominent reactive changes including marked foveolar elongation. There is focal superficial erosion, but no background of dense chronic active gastritis or obvious H. pylori organisms seen by H&E examination. Given the erosion, and immunostain for H. pylori was performed (block A1, with appropriately staining controls) and shows few positive staining coccoid forms in detached mucin and cells overlying a portion of mucosa without specific erosion or significant inflammation. Review of this area on H&E slide shows typical clusters of bacterial cocci and detached tissue. The typical distribution and morphology of H. pylori organisms is not seen, arguing against true H. pylori infection. 07/20/2024 3:51 PM [facility] PATHOLOGY LAB Clinical History The patient is a 64-year-old man with suspected upper gastrointestinal bleeding and melena. Operative procedure/findings: EGD - small esophageal diverticulum; benign-appearing intrinsic stenosis at the proximal and distal esophagus, dilated; broad irregular area of mucosa along the lesser curvature with superficial erosion, biopsied 07/20/2024 3:51 PM [facility] PATHOLOGY LAB Gross Description The requisition and specimen(s) are identified with the patient's name, Bi Tabor. Received in formalin, specimen A , are four marie-pink tissue fragments, 0.1-0.3 cm, 0.4 x 0.3 x 0.1 cm in aggregate , submitted in toto in cassette A1. The two smallest fragments are friable and may not survive processing. IKD 07/20/2024 3:51 PM [facility] PATHOLOGY LAB Pathologist Location at [facility] 07/20/2024 3:51 PM [facility] PATHOLOGY LAB Disclaimer The performance characteristics of all immunohistochemical and indirect immunofluorescence stains (if any) cited in this report were determined by the Histopathology Laboratory of [facility]. Some of these tests were developed [...] and interpreted by the attending (teaching) pathologist. 07/20/2024 3:51 PM [facility] PATHOLOGY LAB Embedded Images 07/20/2024 3:51 PM [facility] PATHOLOGY LAB Biopsy, NOS GASTRIC CONTENTS SPECIMEN / Unknown 07/18/2024 4:27 PM MACHINE COMPOSITOR 07/19/2024 10:00 AM MACHINE COMPOSITOR Comment:Pre-op diagnosis: Coffee ground emesis [K92.0] Clifton Alejandra MD LAB - PATHOL OGY/CYTOLOGY ORDERABLES Performing Organization Address City/State/[facility] Co de Phone Number [facility] [address] [phone] * EGD (07/18/2024 3:52 PM MACHINE COMPOSITOR) Report Endoscopy POC Endoscopy Department Report __ _ Patient Name: Bi Tabor Procedure Date: 07/18/2024 3:52 PM Date of : 1960 Classification: Inpatient Gender: Male Ethnicity: Not or Race: Black or __ _ Providers: Clifton Alejandra MD Referring MD: Inpatient Medicine / GI Consult Team Procedure: Upper GI endoscopy Indications: Suspected upper gastrointestinal bleeding, Melena Medications: Monitored Anesthesia Care. See the Anesthesia note for documentation of the administered medications. Description of Procedure: After obtaining informed consent, the endoscope was passed under direct vision. Throughout the procedure, the patient's blood pressure, pulse, and oxygen saturations were monitored continuously. A gastroscope was introduced through the mouth, and advanced to the second part of duodenum. The upper GI endoscopy was accomplished without difficulty. The patient tolerated the procedure well. Findings: A small (< 1 cm) diverticulum with surgical genie and adjacent septum, was found at the esophageal introitus. There was mild benign appearing intrinsic stenosis at the proximal and distal esophagus, this was auto-dilated via endoscope passage. The esophagus was otherwise normal appearing. The Z-line was regular. No Prater's-like changes were present. An old gastrostomy site and gastro-jejunostomy tube were found in the gastric body. The gastrostomy site was healthy appearing and the gastro-jejunostomy tube appeared in appropriate position. There was moderate irregular mucosa along the lesser curvature of the gastric antrum and pre-pyloric region with superficial erosion and small heme material, possibly related to trauma from the jejunal extension. Targeted biopsies were obtained with a cold forceps for histology. The stomach was otherwise normal appearing, including retroflexed views of the cardia and fundus. The examined duodenum was normal appearing. Estimated Blood Loss: Estimated blood loss was minimal. Complications: No immediate complications. Impression: - Small (< 1 cm) diverticulum with surgical genie at the esophageal introitus. - Mild benign appearing intrinsic stenosis at the proximal and distal esophagus, auto-dilated via endoscope passage. - Healthy appearing gastrostomy with gastro-jejunostomy tube in place. - Broad area of irregular mucosa along the lesser curvature of the gastric antrum and pre-pyloric region with superficial erosion and small heme material, possibly related to trauma from the jejunal extension, biopsied. Moderate Sedation: . Recommendation: - Return to hospital [facility] for ongoing care. Further management per GI consult team. - Acid reducing therapy with proton pump inhibitor-type medications (ex. Omeprazole, Esomeprazole, Pantoprazole, Lansoprazole) twice a day. - Avoid NSAID type medications (ex. Ibuprofen, Naproxen, Diclofenac, Celecoxib, Meloxicam, etc). - Follow-up biopsy results. Further management accordingly, including need / timing of repeat Upper Endoscopy (EGD). - Follow-up with the referring providers has been discussed with the patient/caregiver. - The potential complications and concerning symptoms/findings, including but not limited to early or delayed fevers, infection, pain, bleeding, perforation, were discussed with the patient/caregiver. Emergency contact information was provided. Attending Participation: I personally performed the entire procedure. Procedure Code(s): --- Professional --- 74779, Esophagogastroduode noscopy, flexible, transoral; with biopsy, single or multiple Diagnosis Code(s): --- Professional --- K31.89, Other diseases of stomach and duodenum K92.1, Melena (includes Hematochezia) CPT copyright 2021 [employer]. All rights reserved. The codes documented in this report are preliminary and upon safety clothing and equipment developer review may be revised to meet current compliance requirements. Clifton Alejandra MD 07/18/2024 4:45:03 PM Note Initiated On: 07/18/2024 3:52 PM Number of Addenda: [id number] [place] [address] PROVATION 07/18/2024 3:52 PM MACHINE COMPOSITOR Aaron Delgado III, MD GI PROCEDURE OR DERABLES [facility] [employer]OVATION * PHOSPHORUS BLOOD (07/18/2024 8:07 AM MACHINE COMPOSITOR) Only the most recent of3 resultswithin the time period is included. Phosphorus 4.2 2.8 - 5.1 mg/dL 07/18/2024 8:52 AM [facility] Blood BLOOD SPECIMEN / Unknown Lab Venipuncture / Unknown 07/18/2024 8:07 AM MACHINE COMPOSITOR 07/18/2024 8:24 AM MACHINE COMPOSITOR Marianne Daniels MD LAB - CHEMISTRY MARSHAL MEDEROS [facility] [address] [place] [address], [facility] [phone] * VALPROIC ACID LEVEL (07/18/2024 8:07 AM MACHINE COMPOSITOR) [facility] Valproic Acid Total 74 50 - 100 ug/mL 07/18/2024 8:41 AM [facility] Blood BLOOD SPECIMEN / Unknown Lab Venipuncture / Unknown 07/18/2024 8:07 AM MACHINE COMPOSITOR 07/18/2024 8:19 AM MACHINE COMPOSITOR Marianne Daniels MD LAB - CHEMISTRY MARSHAL MEDEROS [facility] [address] [place] [address], [place] [phone] * CARDIAC EKG ORDER (07/17/2024 1:44 PM MACHINE COMPOSITOR) Narrative 07/17/2024 1:44 PM MACHINE COMPOSITOR Ordered by an unspecified provider. Scanned Document CARDIAC SERVICES ORD ERABLES * (ABNORMAL) URINE MICROSCOPIC ONLY REFLEX TO CULTURE (07/17/2024 9:58 AM MACHINE COMPOSITOR) [facility] Reflex Status Culture to follow 07/17/2024 10:42 AM [facility] WBC UA 21-50(A) None Seen, 0-5 /HPF 07/17/2024 10:42 AM [facility] Bacteria UA 1+(A) None /HPF 07/17/2024 10:42 AM [facility] Squamous Epithelial Cells UA None Seen None Seen, 0-2, 3-5 /HPF 07/17/2024 10:42 AM [facility] Urine URINE SPECIMEN OBTAINED BY CLEAN CATCH PROCEDURE / Unknown Collection / Unknown 07/17/2024 9:58 AM MACHINE COMPOSITOR 07/17/2024 10:02 AM [facility] - 07/17/2024 10:42 AM MACHINE COMPOSITOR Quan Gan MD LAB - URINALYSIS ORD ERABLES [facility] [address] [place] [address], [facility] [phone] * (ABNORMAL) URINALYSIS REFLEX MICROSCOPIC REFLEX CULTURE (07/17/2024 9:58 AM MACHINE COMPOSITOR) Only the most recent of3 resultswithin the time period is included. Color UA Yellow Straw, Yellow 07/17/2024 10:36 AM [facility] Clarity UA Slt Cloudy(A) Clear 07/17/2024 10:36 AM [facility] Specific [place] UA 1.027 1.005 - 1.030 07/17/2024 10:36 AM [facility] pH UA 8.0 5.0 - 8.0 pH 07/17/2024 10:36 AM [facility] Protein UA 1+(A) Negative 07/17/2024 10:36 AM [facility] Glucose UA Negative Negative 07/17/2024 10:36 AM [facility] Ketone UA Negative Negative 07/17/2024 10:36 AM [facility] Bilirubin UA Negative Negative 07/17/2024 10:36 AM [facility] Blood UA Negative Negative 07/17/2024 10:36 AM [facility] Nitrite UA Positive(A) Negative 07/17/2024 10:36 AM [facility] Leukocyte Esterase 1+(A) Negative 07/17/2024 10:36 AM [facility] Urobilinogen UA 4.0(A) Negative mg/dL 07/17/2024 10:36 AM [facility] Urine URINE SPECIMEN OBTAINED BY CLEAN CATCH PROCEDURE / Unknown Collection / Unknown 07/17/2024 9:58 AM MACHINE COMPOSITOR 07/17/2024 10:02 AM MACHINE COMPOSITOR Narrative [facility] - 07/17/2024 10:36 AM MACHINE COMPOSITOR Quan Gan MD LAB - URINALYSIS ORD ERABLES [address] [address], [facility] [phone] * TROPONIN-I HIGH SENSITIVE REFLEX 1HOUR (07/17/2024 12:03 AM MACHINE COMPOSITOR) Troponin I High Sensitive 7 <=35 ng/L 07/17/2024 12:48 AM [facility] Delta Troponin I HS 0 <6 ng/L 07/17/2024 12:48 AM [facility] Blood BLOOD SPECIMEN / Unknown Venipuncture / Unknown 07/17/2024 12:03 AM MACHINE COMPOSITOR 07/17/2024 12:11 AM MACHINE COMPOSITOR Quan Gan MD LAB - CHEMISTRY ORDE RABLES [address] [address], [facility] [phone] * SARS-COV-2 (COVID-19) FLU A/B RSV PCR RAPID (07/17/2024 12:03 AM MACHINE COMPOSITOR) COVID-19 PCR Not detected Not detected 07/17/19 12:51 AM [facility] Influenza A PCR Not detected Not detected 07/17/2024 12:51 AM [facility] Influenza B PCR Not detected Not detected 07/17/2024 12:51 AM [facility] RSV PCR Not detected Not detected 07/17/2024 12:51 AM [facility] Microbiology SPECIMEN FROM NASOPHARYNGEAL STRUCTURE / Unknown Collection / Unknown 07/17/2024 12:03 AM MACHINE COMPOSITOR 07/17/2024 12:11 AM MACHINE COMPOSITOR Narrative [facility] - 07/17/2024 12:51 AM MACHINE COMPOSITOR This nucleic acid amplification assay has been [...] this EUA assay are available upon request. Quan Gan MD LAB - MICROBIOLOGY O RDERABLES [address] [address], [facility] [phone] * CT Abdomen Pelvis W Contrast (07/16/2024 11:41 PM MACHINE COMPOSITOR) Anatomical Region Laterality Modality Abdomen, Pelvis Computed Tomogra phy 07/17/2024 12:0 2 AM MACHINE COMPOSITOR Impressions 07/17/2024 8:29 AM MACHINE COMPOSITOR Impression: 1.No acute process identified in the abdomen or pelvis. 2.Mild diffuse mural thickening and mucosal enhancement of the distal esophagus could suggest reflux esophagitis. 3.Partially visualized debris in the right mainstem bronchus with mild peribronchial thickening in the lower lobes may be present sequelae of aspiration. 4.Nonspecific air-fluid levels in the colon may be seen with underlying diarrheal illness. 5.Unchanged appearance of punctate nonobstructive renal calculi bilaterally. 6.Prostatomegaly, enhancing nodule is noted in the right side of the lower third of the prostate. Correlate with clinical and serum PSA. There is associated features suggestive bladder outlet obstruction. > Dictated by Ashu Welch MD (residential program worker). I, Bebo Kuo MD have personally reviewed and interpreted this examination/study. > Interpreting Provider: Bebo Kuo MD on 07/17/2024 8:29 AM Narrative 07/17/2024 8:29 AM MACHINE COMPOSITOR PROCEDURE: CT ABDOMEN PELVIS W CONTRAST, DATE/TIME OF EXAM: 07/16/2024 11:42 PM, LOCATION [facility] INDICATION: R11.2: Nausea and vomiting, unspecified vomiting type R14.0: Abdominal distention K59.09: Other constipation ADDITIONAL CLINICAL INFORMATION: Ordering Provider Reason For Exam: Obstruction? Abscess? IV? Acute intra-abdominal process? COMPARISON: CT chest/abdomen/pelvis 05/15/2024 TECHNIQUE: CT of the abdomen and pelvis was performed following the uneventful administration of 100 mL of Isovue 370 intravenous contrast according to standard protocol. Findings: Lower Chest: Mild bilateral dependent atelectasis is present in the visualized lung bases. Small volume debris is noted in the right mainstem bronchus with mild peribronchial thickening in the lower lobes. The coronary arteries are atherosclerotic. Mild diffuse mural thickening of the distal esophagus is noted suggesting reflux esophagitis. Liver: Multiple subcentimeter hypoattenuating hepatic lesions are too small to characterize, but likely represent hepatic cysts. Gallbladder and Bile Ducts: The gallbladder is normal. No intra or extrahepatic biliary dilatation. Spleen: Normal. Pancreas: Normal. Adrenals: Normal. Kidneys: Punctate nonobstructive renal calculi appear similar to prior. Otherwise the kidneys enhance symmetrically without hydronephrosis. Gastrointestinal: Percutaneous gastrojejunostomy tube is present with the contrast-filled balloon in the antrum of the stomach. Nonspecific air-fluid levels are seen in the distal colon. The small bowel is decompressed. The appendix is not seen. Mesentery/Peritoneum/Retroperitoneum: No abdominal or retroperitoneal lymphadenopathy. Bladder: The bladder wall is diffusely thickened with the mucosal enhancement, likely due to decompressed state. Reproductive Organs: Prostatomegaly measuring 5.0 cm in transverse diameter. An approximately 2.2 cm enhancing nodule is noted in the right side of the lower third of the prostate. Vasculature: Atherosclerotic calcification of the aorta and its branch vessels. Bones: Focal sclerotic bone lesion is reidentified in the body of the right pubis bone, likely bone island. The visible osseous structures are intact. Degenerative changes are seen in the spine. Chronic compression deformity is again seen involving the L3 superior endplate. Soft tissues: Mild bilateral gynecomastia is again noted. Soft tissue edema in the lateral hip soft tissues appear similar to prior. Mild sarcopenia of the paraspinal and gluteal muscles. Procedure Note Bebo Kuo MD - 07/17/2024 PROCEDURE: CT ABDOMEN PELVIS W CONTRAST, DATE/TIME OF EXAM: 07/16/2024 11:42 PM, LOCATION [facility] INDICATION: R11.2: Nausea and vomiting, unspecified vomiting type R14.0: Abdominal distention K59.09: Other constipation ADDITIONAL CLINICAL INFORMATION: Ordering Provider Reason For Exam: Obstruction? Abscess? IV? Acute intra-abdominal process? COMPARISON: CT chest/abdomen/pelvis 05/15/2024 TECHNIQUE: CT of the abdomen and pelvis was performed following the uneventful administration of 100 mL of Isovue 370 intravenous contrast according to standard protocol. Findings: Lower Chest: Mild bilateral dependent atelectasis is present in the visualized lung bases. Small volume debris is noted in the right mainstem bronchus with mild peribronchial thickening in the lower lobes. The coronary arteriesare atherosclerotic. Mild diffuse mural thickening of the distal esophagus is notedsuggesting reflux esophagitis. Liver: Multiple subcentimeter hypoattenuating hepatic lesions are too small to characterize, but likely represent hepatic cysts. Gallbladder and Bile Ducts: The gallbladder is normal. No intra or extrahepatic biliary dilatation. Spleen: Normal. Pancreas: Normal. Adrenals: Normal. Kidneys: Punctate nonobstructive renal calculi appear similar to prior. Otherwise the kidneys enhance symmetrically without hydronephrosis. Gastrointestinal: Percutaneous gastrojejunostomy tube is present with the contrast-filled balloon in the antrum of the stomach. Nonspecific air-fluid levels areseen in the distal colon. The small bowel is decompressed. The appendix isnot seen. Mesentery/Peritoneum/Retroperitoneum: No abdominal or retroperitoneal lymphadenopathy. Bladder: The bladder wall is diffusely thickened with the mucosal enhancement, likely due to decompressed state. Reproductive Organs: Prostatomegaly measuring 5.0 cm in transverse diameter. An approximately 2.2 cm enhancing nodule is noted in the right side of the lower third of the prostate. Vasculature: Atherosclerotic calcification of the aorta and its branch vessels. Bones: Focal sclerotic bone lesion is reidentified in the body of the rightpubis bone, likely bone island. The visible osseous structures are intact. Degenerative changes are seen in the spine. Chronic compressiondeformity is again seen involving the L3 superior endplate. Soft tissues: Mild bilateral gynecomastia is again noted. Soft tissue edema in the lateral hip soft tissues appear similar to prior. Mild sarcopenia of the paraspinal and gluteal muscles. Impression: 1.No acute process identified in the abdomen or pelvis. 2.Mild diffuse mural thickening and mucosal enhancement of the distal esophagus could suggest reflux esophagitis. 3.Partially visualized debris in the right mainstem bronchus with mild peribronchial thickening in the lower lobes may be present sequelae of aspiration. 4.Nonspecific air-fluid levels in the colon may be seen with underlying diarrheal illness. 5.Unchanged appearance of punctate nonobstructive renal calculi bilaterally. 6.Prostatomegaly, enhancing nodule is noted in the right side of thelower third of the prostate. Correlate with clinical and serum PSA. There is associated features suggestive bladder outlet obstruction. > Dictated by Ashu Welch MD (residential program worker). I, Bebo Kuo MD have personally reviewed and interpreted this examination/study. > Interpreting Provider: Bebo Kuo MD on 58:29 AM Quan Gan MD CT ORDERABLES * LACTIC ACID BLOOD REFLEX TO REPEAT (07/16/2024 10:44 PM MACHINE COMPOSITOR) Lactic Acid-Stat 1.9 <=2.0 mmol/L 07/16/2024 11:19 PM MACHINE COMPOSITOR [facility] Blood BLOOD SPECIMEN / Unknown Venipuncture / Unknown 07/16/2024 10:44 PM MACHINE COMPOSITOR 07/16/2024 10:52 PM MACHINE COMPOSITOR Quan Gan MD LAB - CHEMISTRY MARSHAL MEDEROS [facility] Organization Address City/State/ZIP Co de Phone Number [address] [address], [facility] [phone] * CK BLOOD (07/16/2024 10:44 PM MACHINE COMPOSITOR) CK Total 92 30 - 200 U/L 07/16/2024 11:23 PM MACHINE COMPOSITOR [facility] Blood BLOOD SPECIMEN / Unknown Venipuncture / Unknown 07/16/2024 10:44 PM MACHINE COMPOSITOR 07/16/2024 10:52 PM MACHINE COMPOSITOR Quan Gan MD LAB - CHEMISTRY MARSHAL MEDEROS [facility] [address] [place] [address], [facility] [phone] * (ABNORMAL) BASIC METABOLIC PANEL (CALCIUM TOTAL) (06/08/2024 4:11 AM MACHINE COMPOSITOR) BUN 14 7 - 26 mg/dL 06/08/2024 4:58 AM [facility] Creatinine 0.57(L) 0.71 - 1.16 mg/dL 06/08/2024 4:58 AM [facility] Sodium 140 136 - 145 mmol/L 06/08/2024 4:58 AM [facility] Potassium 3.9 3.5 - 4.5 mmol/L 06/08/2024 4:58 AM [facility] Chloride 108(H) 98 - 107 mmol/L 06/08/2024 4:58 AM [facility] CO2 27 22 - 29 mmol/L 06/08/2024 4:58 AM [facility] Glucose 105(H) 70 - 99 mg/dL 06/08/2024 4:58 AM [facility] Calcium 9.3 8.4 - 10.2 mg/dL 06/08/2024 4:58 AM [facility] Anion Gap 5(L) 6 - 16 06/08/2024 4:58 AM [facility] BUN/Creatinine Ratio 25(H) 7 - 23 06/08/2024 4:58 AM [facility] Osmolality Calculated 291 275 - 295 mOsm/kg 06/08/2024 4:58 AM [facility] eGFR by CKD-EPI >90 >=90 mL/min/1.7 3 m2 06/08/2024 4:58 AM [facility] Blood BLOOD SPECIMEN / Unknown Venipuncture / Unknown 06/08/2024 4:11 AM MACHINE COMPOSITOR 06/08/2024 4:18 AM MACHINE COMPOSITOR Lilliam Isaacs ELASTIC YARN TWISTER-INSPECTOR RAG SORTING LAB - CHEMISTRY ORDERABLES [facility] [address] [place] [address], [facility] [phone] * (ABNORMAL) LIPID PROFILE (06/08/2024 4:11 AM MACHINE COMPOSITOR) Pathologist [facility] Cholesterol Total 136 <200 mg/dL 06/08/2024 4:49 AM [facility] HDL 35(L) >40 mg/dL 06/08/2024 4:49 AM [facility] Comment: ATP III Classification of HDL Cholesterol: <40 mg/dL: Considered a major risk factor. >60 mg/dL: Considered a negative risk factor. LDL Calculated 88 <100 mg/dL 06/08/2024 4:49 AM [facility] Comment: ATP III Classification of LDL Cholesterol: <100 mg/dL: Optimal 100 - 129 mg/dL: Near Optimal/Above Optimal 130 - 159 mg/dL: Borderline High 160 - 189 mg/dL: High >190 mg/dL: Very High Triglycerides 65 <150 mg/dL 06/08/2024 4:49 AM [facility] Comment: ATP III Classification of Triglycerides: <150 mg/dL: Normal 150 - 199 mg/dL: Borderline High 200 - 400 mg/dL: High >500 mg/dL: Very High Blood BLOOD SPECIMEN / Unknown Venipuncture / Unknown 06/08/2024 4:11 AM MACHINE COMPOSITOR 06/08/2024 4:18 AM [facility] Lilliam Isaacs ELASTIC YARN TWISTER-INSPECTOR RAG SORTING LAB - CHEMISTRY ORDERABLES [facility] [address] [place] [address], [facility] [phone] * HEPATITIS C AB SCREEN RFLX NAAT QUANT (09/01/2022 2:05 AM CDT) Pathologist [facility] Hepatitis C Antibody Non-react phan Non-reac tive 09/01/2022 3:09 AM CDT [facility] Comment:Hepatitis C Antibody screen indicates [...] - CHEMISTRY MARSHAL MEDEROS Performing Organization Address City/[facility]/ZIP Co de Phone Number [facility] [address] [place] [address], [place] [phone] * HIV-1 HIV-2 ANTIBODY + HIV P24 AG PANEL (09/01/2022 2:05 AM CDT) HIV Antigen/Antibod y 1 & 2 Non-reacti ve Non-react phan 09/01/2022 3:09 AM CDT [facility] Comment:No Laboratory eviden ce of HIV infection. 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 Source: [facility]. 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 John Seipel Infection Prevention 09/18/2022 MRSA 06/11/2023 06/11/2023 Advance Directives Documents on File Type Date Recorded Patient Supervisor Plasma Expl anation Adv Directive/Living Will/POA 07/19/2019 4:10 PM * Full Code (Latest Code Status on File) Date Activated Date Inactivated Comments 08/03/2024 3:18 AM 08/08/2024 9:58 PM * Full Code Date Activated Date Inactivated Comments 07/17/2024 3:34 AM 07/19/2024 6:56 PM * Full Code Date Activated Date Inactivated Comments 06/08/2024 12:11 AM 06/10/2024 2:02 AM * Full Code Date Activated Date Inactivated Comments 02/17/2024 1:53 AM 02/20/2024 6:57 PM * Full Code Date Activated Date Inactivated Comments 09/06/2023 10:09 PM 09/09/2023 7:47 PM Care Teams Nail Puller Relationship Specialty Start Date End Date Dany Monsivais MD [address] [address] PCP - General Family Medicine 11/18/23 Elizabeth Sullivan, RN Drafting Teacher 10/14/17
--- OUTSIDE RECORDS SUMMARY | 2024-08-09 01:06 | XMS_ITS | Referral Summary ---
Author Organization [facility] Address [address] [facility] [place] [address] Care Team Providers Care Renal Case Manager Name Role Phone Elizabeth Sullivan RN Unavailable [phone] Dany Monsivais MD Primary Care Provider Source Comments [facility],non-owned Affiliates and Associated Physician Practices is amultiple site organization consisting of ambulatory clinics and hospital sitesin [place], [place], [place] and [place]. This disclosure is being madepursuant to the Care Everywhere program and may not contain all information available regarding this patient. Last updated 18.[facility] Encounters Date Type Department Care Team Description 08/02/2024 4:31 PM SECURITY INCIDENT HANDLER - 08/08/2024 8:48 PM CDT Hospital Encounter [facility] [address] [place] [phone] Elmo Johnson MD Mayer, Joshua C, DO Arshad, Iqra, MD Archuleta, Lydia, MD Joag, Madhura, MD Internal Medicine Discharge Disposition: Senior Living or Supportive Care 08/02/2024 Travel 08/02/2024 1:23 AM SECURITY INCIDENT HANDLER - 08/02/2024 8:15 AM SECURITY INCIDENT HANDLER Emergency [facility] EMERGENCY DEPARTMENT [address] [place] [phone] Arthur Marinelli MD Other tracheostomy complication (HCC) (Primary Dx); Abdominal pain, unspecified abdominal location Discharge Disposition: [facility] Facility 07/27/2024 3:54 PM SECURITY INCIDENT HANDLER - 07/28/2024 6:53 AM SECURITY INCIDENT HANDLER Emergency [facility] EMERGENCY DEPARTMENT [address] [place] [phone] Serjio Vilchis MD Feeding intolerance (Primary Dx); Generalized abdominal pain; Chronic pulmonary aspiration, initial encounter Discharge Disposition: [facility] Facility 07/27/2024 Travel 07/16/2024 9:23 PM SECURITY INCIDENT HANDLER - 07/19/2024 5:51 PM SECURITY INCIDENT HANDLER Hospital Encounter [facility] [address] [place] [phone] Quan Gan MD Arshad, Iqra, MD Bastin, Taylor J, MD Morreale, Peter J III, MD Emergency Medicine Discharge Disposition: [facility] Facility 07/18/2024 4:05 PM SECURITY INCIDENT HANDLER Anesthesia Event [facility] ENDOSCOPY [address] [place] [phone] Teri Trent MD Dobbs, Yelena Chau, SUPERVISORY EXAMINER-GEOSCIENCE TECHNICIAN 07/18/2024 4:15 PM SECURITY INCIDENT HANDLER - 07/18/2024 4:45 PM SECURITY INCIDENT HANDLER Surgery [facility] ENDOSCOPY [address] [place] [phone] Clifton Trinh MD EGD(ISO) 07/16/2024 Travel 06/07/2024 5:04 PM SECURITY INCIDENT HANDLER - 06/09/2024 9:50 PM SECURITY INCIDENT HANDLER Hospital Encounter [facility] Early Admission Unit [address] [place] [phone] Elizabeth Hernandez MD Miller, MD Marleny Caldera Shiva F, MD Heis, Farah, MD Internal Medicine Discharge Disposition: Other Facility Not Defined Elsewhere 06/07/2024 Travel 05/15/2024 Travel 05/15/2024 10:08 AM SECURITY INCIDENT HANDLER - 05/15/2024 11:44 PM SECURITY INCIDENT HANDLER Emergency [facility] EMERGENCY DEPARTMENT [address] [place] [phone] Caio Elder MD Garcia, Andrew M, MD Abdominal pain, generalized (Primary Dx); Diverticulosis; Prostate enlargement; Nephrolithiasis Discharge Disposition: [facility] Facility from Last 3 Months Allergies Active Allergy [...] No evidence of infection Urine cultures from [facility] last month were negative growth as [...] 023 Immunizations Name Administration Dates Next Due Covmarla Pfizer primary monoval ent 12+ yr 0.3mL [...] and heating? Not hard at all 08/06/2024 [facility] Freedom of Occupat ional Health - Occupational Stress [...] place to sleep or slept in a chcf (including now)? No 06/19/2023 Housing Stability Vital Sign Answer Vinay e Recorded In the last 12 months, was t here a time when you were not able to pay the mortgage or rent on time? No 08/06/2024 In the past 12 months, how m any times have you moved where you were living? 1 08/06/2024 At any time in the past 12 m [facility], were you homeless or living in a chcf (including now)? No 08/06/2024 Sex and Gender [...] 72.6 kg (160 lb) 08/04/2024 12:00 AM SECURITY INCIDENT HANDLER Height 175.3 cm (5' 9.02 ) 08/04/2024 12:[address] Body Mass Index 23.62 08/04/2024 12:00 AM SECURITY INCIDENT HANDLER Functional Status Functional Status Response Date of [...] person have difficulty concentrating/remembering/making decisions? Yes 07/17/2024 Plan of Treatment Upcoming Encounters Date Type Department Care Team (Late st Contact Info) Description 12/05/2024 1:00 PM CDT Office Visit [facility] - Neurology [address] [place] [address], [place] [phone] Sean Raymundo, DO [address] [place] [phone] Procedures Procedure Name Priority Date/Time Associated Diagnosis [...] POINT OF CARE Routine 08/05/2024 1:43 AM SECURITY INCIDENT HANDLER CBC W/O DIFFERENTIAL Routine 08/05/2024 1:02 AM SECURITY INCIDENT HANDLER Nausea without vomiting PT-INR [facility] Routine 08/05/2024 1:02 AM SECURITY INCIDENT HANDLER Nausea without vomiting MAGNESIUM BLOOD Routine 08/05/2024 1:02 AM SECURITY INCIDENT HANDLER Nausea without vomiting RENAL FUNCTION PANEL Routine 08/05/2024 1:02 AM SECURITY INCIDENT HANDLER Nausea without vomiting CBC W/O DIFFERENTIAL Routine 08/04/2024 12:12 PM SECURITY INCIDENT HANDLER Nausea without vomiting PSA FREE + TOTAL PANEL AM Draw 08/04/2024 12:12 PM SECURITY INCIDENT HANDLER Acute cystitis without hematuria PT-INR [facility] Routine 08/04/2024 12:12 PM SECURITY INCIDENT HANDLER Nausea without vomiting MAGNESIUM BLOOD Routine 08/04/2024 12:12 PM SECURITY INCIDENT HANDLER Nausea without vomiting RENAL FUNCTION PANEL Routine 08/04/2024 12:12 PM SECURITY INCIDENT HANDLER Nausea without vomiting CULTURE URINE STAT 08/03/2024 8:53 AM SECURITY INCIDENT HANDLER Acute cystitis without hematuria HEMOGLOBIN A1C RINKU 08/03/2024 5:18 AM SECURITY INCIDENT HANDLER Nausea without vomiting CBC W/O DIFFERENTIAL STAT 08/03/2024 5:18 AM SECURITY INCIDENT HANDLER Nausea without vomiting PT-INR [facility] STAT 08/03/2024 5:18 AM SECURITY INCIDENT HANDLER Nausea without vomiting MAGNESIUM BLOOD STAT 08/03/2024 5:18 AM SECURITY INCIDENT HANDLER Nausea without vomiting RENAL FUNCTION PANEL STAT 08/03/2024 5:18 AM SECURITY INCIDENT HANDLER Nausea without vomiting TYPE + SCREEN PANEL STAT 08/02/2024 9 :53 PM SECURITY INCIDENT [address]ER CT CHEST ABDOMEN PELVIS W CONT STAT 08/02/2024 9:42 PM SECURITY INCIDENT HANDLER Nausea without vomiting XR CHEST 1VW PORTABLE STAT 08/02/2024 5:15 PM SECURITY INCIDENT HANDLER Nausea without vomiting URINALYSIS REFLEX TO MICROSCOPIC NO CULTURE STAT 08/02/2024 5:08 PM SECURITY INCIDENT HANDLER PT-INR [facility] STAT 08/02/2024 5:08 PM SECURITY INCIDENT HANDLER COMPREHENSIVE METABOLIC PANEL STAT 08/02/2024 5:08 PM SECURITY INCIDENT HANDLER LIPASE BLOOD STAT 08/02/2024 5:08 PM SECURITY INCIDENT HANDLER CBC W AUTO DIFFERENTIAL STAT 08/02/2024 5:08 PM SECURITY INCIDENT HANDLER XR CHEST 1VW PORTABLE STAT 08/02/2024 2:33 AM SECURITY INCIDENT HANDLER Abdominal pain, unspecified abdominal location LIPASE BLOOD STAT 08/02/2024 2:03 AM SECURITY INCIDENT HANDLER COMPREHENSIVE METABOLIC PANEL STAT 08/02/2024 2:03 AM SECURITY INCIDENT HANDLER CBC W AUTO DIFFERENTIAL STAT 08/02/2024 2:03 AM SECURITY INCIDENT [address]ER CT CHEST ABDOMEN PELVIS W CONT STAT 07/28/2024 12:25 AM SECURITY INCIDENT HANDLER Generalized abdominal pain COMPREHENSIVE METABOLIC PANEL STAT 07/27/2024 6:26 PM SECURITY INCIDENT HANDLER CBC W AUTO DIFFERENTIAL STAT 07/27/2024 6:26 PM SECURITY INCIDENT HANDLER TROPONIN-I HIGH SENSITIVE BASELINE + 1HR STAT 07/27/2024 6:26 PM SECURITY INCIDENT HANDLER MAGNESIUM BLOOD STAT 07/27/2024 6:26 PM SECURITY INCIDENT HANDLER LIPASE BLOOD STAT 07/27/2024 6:26 PM SECURITY INCIDENT HANDLER EKG 12-LEAD Routine 07/27/2024 5:34 PM SECURITY INCIDENT HANDLER Generalized abdominal pain XR CHEST 1VW PORTABLE Routine 07/27/2024 12:39 PM SECURITY INCIDENT HANDLER Nausea and vomiting, unspecified vomiting type GLUCOSE - POINT OF CARE Routine 07/19/2024 5:00 PM SECURITY INCIDENT HANDLER GLUCOSE - POINT OF CARE Routine 07/19/2024 12:10 PM SECURITY INCIDENT HANDLER GLUCOSE - POINT OF CARE Routine 07/19/2024 8:10 AM SECURITY INCIDENT HANDLER CBC W AUTO DIFFERENTIAL Routine 07/19/2024 5:27 AM SECURITY INCIDENT HANDLER Coffee ground emesis GLUCOSE - POINT OF CARE Routine 07/19/2024 3:34 AM SECURITY INCIDENT HANDLER GLUCOSE - POINT OF CARE Routine 07/18/2024 11:33 PM SECURITY INCIDENT HANDLER GLUCOSE - POINT OF CARE Routine 07/18/2024 8:01 PM SECURITY INCIDENT HANDLER PATHOLOGY TISSUE Routine 07/18/2024 4:27 PM SECURITY INCIDENT HANDLER Coffee ground emesis VT ED EGD FLEX TRANSORAL DX 07/18/2024 4:00 PM SECURITY INCIDENT HANDLER Coffee ground emesis EGD Routine 07/18/2024 3:52 PM SECURITY INCIDENT HANDLER GLUCOSE - POINT OF CARE Routine 07/18/2024 12:11 PM SECURITY INCIDENT HANDLER GLUCOSE - POINT OF CARE Routine 07/18/2024 11:44 AM SECURITY INCIDENT HANDLER CBC W AUTO DIFFERENTIAL Routine 07/18/2024 8:07 AM SECURITY INCIDENT HANDLER Coffee ground emesis PT-INR [facility] Routine 07/18/2024 8:07 AM SECURITY INCIDENT HANDLER Nausea and vomiting, unspecified vomiting type VALPROIC ACID LEVEL Routine 07/18/2024 8 :07 AM SECURITY INCIDENT HANDLER Nausea and vomiting, unspecified vomiting type PHOSPHORUS BLOOD AM Draw 07/18/2024 8:07 AM SECURITY INCIDENT HANDLER Coffee ground emesis COMPREHENSIVE METABOLIC PANEL AM Draw 07/18/2024 8:07 AM SECURITY INCIDENT HANDLER Coffee ground emesis MAGNESIUM BLOOD AM Draw 07/18/2024 8:07 AM SECURITY INCIDENT HANDLER Coffee ground emesis GLUCOSE - POINT OF CARE Routine 07/18/2024 7:42 AM SECURITY INCIDENT HANDLER GLUCOSE - POINT OF CARE Routine 07/18/2024 3:31 AM SECURITY INCIDENT HANDLER GLUCOSE - POINT OF CARE Routine 07/17/2024 11:36 PM SECURITY INCIDENT HANDLER GLUCOSE - POINT OF CARE Routine 07/17/2024 8:42 PM SECURITY INCIDENT HANDLER CARDIAC EKG ORDER 07/17/2024 1:4 4 PM SECURITY INCIDENT HANDLER URINE MICROSCOPIC ONLY REFLEX TO CULTURE STAT 07/17/2024 9:58 AM SECURITY INCIDENT HANDLER URINALYSIS REFLEX MICROSCOPIC REFLEX CULTURE STAT 07/17/2024 9:58 AM SECURITY INCIDENT HANDLER CULTURE URINE STAT 07/17/2024 9:58 AM SECURITY INCIDENT HANDLER CBC W AUTO DIFFERENTIAL STAT 07/17/2024 8:31 AM SECURITY INCIDENT HANDLER Coffee ground emesis TROPONIN-I HIGH SENSITIVE REFLEX 1HOUR Timed 07/17/2024 12:03 AM SECURITY INCIDENT HANDLER CBC W AUTO DIFFERENTIAL STAT 07/17/2024 12:03 AM SECURITY INCIDENT HANDLER SARS-COV-2 (COVID-19) FLU A/B RSV PCR RAPID STAT 07/17/2024 12:03 AM SECURITY INCIDENT HANDLER CT ABDOMEN PELVIS W CONTRAST STAT 07/16/2024 11:41 PM SECURITY INCIDENT HANDLER Nausea and vomiting, unspecified vomiting type Abdominal distention Other constipation CK BLOOD STAT 07/16/2024 10:44 PM SECURITY INCIDENT HANDLER TROPONIN-I HIGH SENSITIVE BASELINE + 1HR STAT 07/16/2024 10:44 PM SECURITY INCIDENT HANDLER LIPASE BLOOD STAT 07/16/2024 10:44 PM SECURITY INCIDENT HANDLER LACTIC ACID BLOOD REFLEX TO REPEAT STAT 07/16/2024 10:44 PM SECURITY INCIDENT HANDLER COMPREHENSIVE METABOLIC PANEL STAT 07/16/2024 10:44 PM SECURITY INCIDENT HANDLER XR CHEST 1VW PORTABLE STAT 07/16/2024 10:28 PM SECURITY INCIDENT HANDLER Nausea and vomiting, unspecified vomiting type CBC W/O DIFFERENTIAL AM Draw 06/09/2024 1:20 AM SECURITY INCIDENT HANDLER GLUCOSE - POINT OF CARE Routine 06/08/2024 6:22 PM SECURITY INCIDENT HANDLER GLUCOSE - POINT OF CARE Routine 06/08/2024 1:12 PM SECURITY INCIDENT HANDLER PHOSPHORUS BLOOD STAT 06/08/2024 4:11 AM SECURITY INCIDENT HANDLER MAGNESIUM BLOOD STAT 06/08/2024 4:11 AM SECURITY INCIDENT HANDLER LIPID PROFILE STAT 06/08/2024 4:11 AM SECURITY INCIDENT HANDLER CBC W/O DIFFERENTIAL STAT 06/08/2024 4:11 AM SECURITY INCIDENT HANDLER BASIC METABOLIC PANEL (CALCIUM TOTAL) STAT 06/08/2024 4:11 AM SECURITY INCIDENT HANDLER PT-INR [facility] STAT 06/08/2024 4:11 AM SECURITY INCIDENT HANDLER URINALYSIS REFLEX MICROSCOPIC REFLEX CULTURE STAT 06/07/2024 10:24 PM SECURITY INCIDENT HANDLER LIPASE BLOOD STAT 06/07/2024 8:01 PM SECURITY INCIDENT HANDLER COMPREHENSIVE METABOLIC PANEL STAT 06/07/2024 8:01 PM SECURITY INCIDENT HANDLER CBC W AUTO DIFFERENTIAL STAT 06/07/2024 8:01 PM SECURITY INCIDENT HANDLER URINALYSIS REFLEX MICROSCOPIC REFLEX CULTURE STAT 05/15/2024 6:12 PM SECURITY INCIDENT HANDLER CT CHEST ABDOMEN PELVIS W CONT STAT 05/15/2024 2:44 PM SECURITY INCIDENT HANDLER Abdominal pain, generalized CBC W AUTO DIFFERENTIAL STAT 05/15/2024 12:40 PM SECURITY INCIDENT HANDLER COMPREHENSIVE METABOLIC PANEL STAT 05/15/2024 12:40 PM SECURITY INCIDENT HANDLER MAGNESIUM BLOOD STAT 05/15/2024 12:40 PM SECURITY INCIDENT HANDLER PHOSPHORUS BLOOD STAT 05/15/2024 12:4 0 PM SECURITY INCIDENT HANDLER HEPATITIS C AB SCREEN RFLX NAAT QUANT [...] Indication: Z93.1: PEG (percutaneous endoscopic gastrostomy) status ([facility]) History: 64-year-old male with past history of [...] placed supine on the procedure table. A turpentine farmer film of abdomen was obtained, which showed [...] blank. Indication: Z93.1: PEG (percutaneous endoscopic gastrostomy) status([facility]) History: 64-year-old male with past history of [...] placed supine on the procedure table. A turpentine farmer film of abdomen wasobtained, which showed the [...] > Dictated by Yessica Lovell MD, MD (vice president education). I, Bebo Kuo MD have personally reviewed and interpreted this examination/study. > Interpreting Provider: Bebo Kuo MD on 08/06/2024 1:31 PM Narrative 08/06/2024 1:31 PM CDT PROCEDURE: CT ABDOMEN WO CONTRAST, DATE/TIME OF EXAM: 08/06/2024 11:01 AM, LOCATION [facility] INDICATION: R11.0: Nausea without vomiting Z93.1: PEG (percutaneous endoscopic gastrostomy) status ([facility]) ADDITIONAL CLINICAL INFORMATION: Ordering Provider [...] CONTRAST, DATE/TIME OF EXAM: 08/06/2024 11:01AM, LOCATION [facility] INDICATION: R11.0: Nausea without vomiting Z93.1: PEG [...] > Dictated by Yessica Lovell MD, MD (vice president education). IBebo MD have personally reviewed and interpreted this examination/study. > Interpreting Provider: Bebo Kuo MD on 51:31 PM Yary James MD CT ORDERABLES * GLUCOSE - POINT OF CARE (08/06/2024 6:45 AM CDT) Only the most recent of16 resultswithin the time period is included. Glucose WB/POC 92 70 - 99 mg/dL 08/06/2024 6:46 AM CDT [facility] Specimen Type Cap Fingerstick 2024 6:46 AM CDT [facility] Blood BLOOD SPECIMEN / Unknown 08/06/2024 6:45 AM CDT 08/06/2024 6:46 AM CDT Yary James MD LAB - POINT OF CARE ORDERABLES [facility] [address] [place] [phone], [facility] [phone] * XR Abdomen Kub Portable (08/05/2024 6:14 AM CDT) Anatomical Region Laterality Modality Abdomen Digital Radiogra phy 08/05/2024 9:25 AM CDT Impressions 08/05/2024 5:10 PM CDT IMPRESSION: No radiographic evidence of acute intra-abdominal process. Report dictated by Sierra Lyman Dr, MD (vice president education). Ramon Thomason MD have personally reviewed and interpreted this examination/study. > Interpreting Provider: Ramon Ross MD on 08/05/2024 5:10 PM Narrative 08/05/2024 5:10 PM CDT PROCEDURE: XR ABDOMEN KUB PORTABLE, DATE/TIME OF EXAM: 08/05/2024 6:14 AM, LOCATION [facility] INDICATION: R11.2: Nausea and vomiting, unspecified vomiting [...] PORTABLE, DATE/TIME OF EXAM: 08/05/2024 6:14AM, LOCATION [facility] INDICATION: R11.2: Nausea and vomiting, unspecified vomiting [...] Report dictated by Sierra Lyman Dr, MD (vice president education). I, Ramon Ross MD have personally reviewed and interpreted this examination/study. > Interpreting Provider: Ramon Ross MD on 08/05/2024 5:10 PM Neha Palomino MD DIAGNOSTIC IMAGING O RDERABLES * PT-INR [facility] (08/05/2024 1:02 AM SECURITY INCIDENT HANDLER) Only the most recent of6 resultswithin the time period is included. PT 13.8 12.1 - 14.8 Seconds 08/05/2024 3:57 AM [facility] INR 1.1 See Comment 08/05/2024 3:57 AM [facility] Comment:The suggested therap eutic range for standard coumadin (warfarin) therapy is an INR of 2.0-3.0. For high-risk patients (Mechanical Mitral Valve Prosthesis, etc.), the suggested prophylactic therapeutic range is an INR of 2.5-3.5. Blood BLOOD SPECIMEN / Unknown Lab Venipuncture / Unknown 08/05/2024 1:02 AM SECURITY INCIDENT HANDLER 08/05/2024 3:37 AM CDT Lowell Cao DO LAB - COAGULATION OR DERABLES [facility] [address] [place] [address], [facility] [phone] * (ABNORMAL) CBC W/O DIFFERENTIAL (08/05/2024 1:02 AM SECURITY INCIDENT HANDLER) Only the most recent of5 resultswithin the time period is included. WBC 6.3 4.0 - 10.7 x10E9/L 08/05/2024 3:[address] [facility] RBC Count 4.08(L) 4.30 - 5.80 x10E12/L 08/05/2024 3:[address] [facility] Hemoglobin 12.8(L) 13.3 - 17.5 g/dL 08/05/2024 3:[address] [facility] Hematocrit 38.5(L) 38.7 - 51.1 % 08/05/2024 3:[address] [facility] MCV 94.4 80.0 - 98.0 fL 08/05/2024 3:[address] [facility] MCH 31.4 26.7 - 33.6 pg 08/05/2024 3:[address] [facility] MCHC 33.2 31.7 - 36.3 g/dL 08/05/2024 3:[address] [facility] RDW-CV 13.2 11.3 - 14.8 % 08/05/2024 3:[address] [facility] Platelet Count 187 150 - 420 x10E9/L 08/05/2024 3:[address] [facility] MPV 13.2(H) 7.8 - 11.4 fL 08/05/2024 3:[address] [facility] Blood BLOOD SPECIMEN / Unknown Lab Venipuncture / Unknown 08/05/2024 1:02 AM SECURITY INCIDENT HANDLER 08/05/2024 3:37 AM [facility] Marianne Daniels MD LAB - HEMATOLOGY ORD ERABLES [facility] [address] [place] [address], [facility] [phone] * (ABNORMAL) RENAL FUNCTION PANEL (08/05/2024 1:02 AM SECURITY INCIDENT HANDLER) Only the most recent of3 resultswithin the time period is included. BUN 16 7 - 26 mg/dL 08/05/2024 4:[address] [facility] Creatinine 0.63(L) 0.71 - 1.16 mg/dL 08/05/2024 4:[address] [facility] Sodium 140 136 - 145 mmol/L 08/05/2024 4:[address] [facility] Potassium 4.0 3.5 - 4.5 mmol/L 08/05/2024 4:[address] [facility] Chloride 107 98 - 107 mmol/L 08/05/2024 4:[address] [facility] CO2 24 22 - 29 mmol/L 08/05/2024 4:[address] [facility] Glucose 79 70 - 99 mg/dL 08/05/2024 4:[address] [facility] Albumin 3.3(L) 3.4 - 5.0 g/dL 08/05/2024 4:[address] [facility] Calcium 8.9 8.4 - 10.2 mg/dL 08/05/2024 4:[address] [facility] Phosphorus 3.6 2.8 - 5.1 mg/dL 08/05/2024 4:[address] [facility] Anion Gap 9 6 - 16 08/05/2024 4:[address] [facility] BUN/Creatinine Ratio 25(H) 7 - 23 08/05/2024 4:[address] [facility] Osmolality Calculated 290 275 - 295 mOsm/kg 08/05/2024 4:[address] [facility] eGFR by CKD-EPI >90 >=90 mL/min/1.7 3 m2 08/05/2024 4:02 AM CDT [facility] Blood BLOOD SPECIMEN / Unknown Lab Venipuncture / Unknown 08/05/2024 1:02 AM SECURITY INCIDENT HANDLER 08/05/2024 3:37 AM CDT Lowell Cao DO LAB - CHEMISTRY [facility]EROS Performing Organization Address City/[facility]/ZIP Co de Phone Number [address] [address], [facility] [phone] * MAGNESIUM BLOOD (08/05/2024 1:02 AM SECURITY INCIDENT HANDLER) Only the most recent of7 resultswithin the time period is included. Magnesium 1.9 1.6 - 2.6 mg/dL 08/05/2024 4:02 AM CDT [facility] Blood BLOOD SPECIMEN / Unknown Lab Venipuncture / Unknown 08/05/2024 1:02 AM SECURITY INCIDENT HANDLER 08/05/2024 3:37 AM CDT Lowell Cao LAB - CHEMISTRY [facility]SHAL MEDEROS Performing Organization Address City/[facility]/ZIP Co de Phone Number [address] [address], [facility] [phone] * PSA FREE + TOTAL PANEL (08/04/2024 12:12 PM SECURITY INCIDENT HANDLER) PSA Total 1.7 0.0 - 4.0 ng/mL 08/04/2024 1:33 PM [facility] PSA Free 0.21 0.00 - 0.50 ng/mL 08/04/2024 1:33 PM [facility] PSA % Free 12 See Comment % 08/04/2024 1:33 PM [facility] Comment: [facility] uses the [employer] Sales Advisory Manager method for Total and Free PSA measurements. [...] Free and/or Total PSA alone. Distribution of PORTER LUGGAGE % Free PSA Values for specimens with PORTER LUGGAGE Total PSA values between 4.0 and 10.0 ng/mL: % Free PSA Ranges <10.0 10.0-15.0 15.0-20.0 20.0-26.0 >26.0 Number of ----- --------- --------- --------- ----- Subjects Biopsy --------- ------ Negative 307 9.4 22.5 25.4 24.8 17.9 Positive 123 27.6 30.9 17.9 15.4 8.1 PSA % Free 08/04/2024 1:33 PM SECURITY INCIDENT HANDLER [facility] Blood BLOOD SPECIMEN / Unknown Lab Venipuncture / Unknown 08/04/2024 12:12 PM SECURITY INCIDENT HANDLER 08/04/2024 12:42 PM SECURITY INCIDENT HANDLER Marianne Daniels MD LAB - CHEMISTRY ORDE GATITO [facility] Organization Address City/State/ZIP Co de Phone Number [address] [address], [facility] [phone] * (ABNORMAL) CULTURE URINE (08/03/2024 8:53 AM SECURITY INCIDENT HANDLER) Only the most recent of2 resultswithin the time period is included. Culture Urine 50,000-100,000 CFU/mL Pseudomonas aeruginosa(A) JELLY 08/07/2024 6:[address] [facility] Comment:This is an appended report. These results have been appended to a previously final verified report. Culture Urine 50,000-100,000 CFU/mL Corynebacterium striatum(A) JELLY 08/07/2024 6:[address] [facility] Comment:This is an appended report. These results have been appended to a previously final verified report. Culture Urine 50,000-100,000 CFU/mL Providencia stuartii(A) JELLY 08/07/2024 6:[address] [facility] Urine URINE SPECIMEN OBTAINED BY CLEAN CATCH PROCEDURE / Unknown Collection / Unknown 08/03/2024 8:53 AM SECURITY INCIDENT HANDLER 08/03/2024 8:56 AM SECURITY INCIDENT HANDLER Narrative Organism Antibiotic Method Susceptibility Pseudomonas aeruginosa [...] Daniels MD LAB - MICROBIOLOGY O RDERABLES [facility] [address] [place] [phone] * HEMOGLOBIN A1C (08/03/2024 5:18 AM SECURITY INCIDENT HANDLER) Hemoglobin A1c 5.3 <=5.6 % 08/03/2024 8:24 AM [facility] Estimated Average Glucose 105 mg/dL 08/03/2024 8:24 AM [facility] Comment: HbA1c Interpretation: Normal : < 5.7% Pre-diabetes: 5.7-6.4% Diabetes: Equal to or greater than 6.5% Test results diagnostic of diabetes should be repeated for confirmation. Treatment target values recommended by ADA and other clinical organizations should be used to evaluate metabolic control in patients. Reference: [place] [employer], Standards of Care in Diabetes -2020 In patients 70 years and older consider HbA1c target range of 7.0-7.5% (Reference: Lukas Matamoros et al. MAXIMILIANODA. 2012) The Sebia assay for the measurement of HbA1c is a National Glycohemoglobin Standardization Program (NGSP) certified method. Blood BLOOD SPECIMEN / Unknown Venipuncture / Unknown 08/03/2024 5:18 AM SECURITY INCIDENT HANDLER 08/03/2024 5:24 AM SECURITY INCIDENT HANDLER Lowell Cao DO LAB - CHEMISTRY [facility]SH[facility] MEDEROS [facility] [address] [place] [phone], [place] [phone] * TYPE + SCREEN PANEL (08/02/2024 9:53 PM SECURITY INCIDENT HANDLER) Antibody Screen NEG 10:41 PM SECURITY INCIDENT HANDLER [facility] ABO Rh O POS 08/02/2024 10:41 PM SECURITY INCIDENT HANDLER [facility] BLOOD BANK LAB Blood Bank BLOOD SPECIMEN / Unknown Venipuncture / Unknown 08/02/2024 9:53 PM SECURITY INCIDENT HANDLER 08/02/2024 10:05 PM SECURITY INCIDENT HANDLER Elmo Johnson MD LAB - BLOOD BANK ORD ERABLES Performing Organization Address City/[facility]/ZIP Co de Phone Number [facility] BLOOD BANK LAB [address] [place] [phone], [place] [phone] * CT Chest Abdomen Pelvis W Cont (08/02/2024 9:42 PM SECURITY INCIDENT HANDLER) Only the most recent of3 resultswithin the time period is included. Anatomical Region Laterality Modality Chest, Abdomen, Pelvis Computed Tomography 08/02/2024 9:56 PM SECURITY INCIDENT HANDLER Impressions 08/02/2024 11:19 PM SECURITY INCIDENT HANDLER Impression: 1.Trace left-sided pleural effusion, bilateral dependent [...] cystitis. > Dictated by Justin Burrell MD (vice president education). I, Bebo Kuo MD have personally reviewed and interpreted this examination/study. > Interpreting Provider: Bebo Kuo MD on 08/02/2024 11:19 PM Narrative 08/02/2024 11:19 PM SECURITY INCIDENT HANDLER PROCEDURE: CT CHEST ABDOMEN PELVIS W CONT, DATE/TIME OF EXAM: 08/02/2024 9:43 PM, LOCATION [facility] INDICATION: R11.0: Nausea without vomiting ADDITIONAL CLINICAL [...] DATE/TIME OF EXAM: 08/02/2024 9:43 PM, LOCATION [facility] INDICATION: R11.0: Nausea without vomiting ADDITIONAL CLINICAL [...] cystitis. > Dictated by Justin Burrell MD (vice president education). IBebo MD have personally reviewed and interpreted this examination/study. > Interpreting Provider: Bebo Kuo MD on 511:19 PM Elmo Johnson MD CT ORDERABLES * XR CHEST 1VW PORTABLE (08/02/2024 5:15 PM SECURITY INCIDENT HANDLER) Only the most recent of4 resultswithin the time period is included. Anatomical Region Laterality Modality Chest Digital Radiogra phy 08/02/2024 5:27 PM SECURITY INCIDENT HANDLER Narrative 08/03/2024 9:31 AM SECURITY INCIDENT HANDLER PROCEDURE: XR CHEST 1VW PORTABLE, DATE/TIME OF EXAM: 08/02/2024 5:15 PM, LOCATION [facility] INDICATION: R11.0: Nausea without vomiting ADDITIONAL CLINICAL [...] abnormality. > Dictated by Meeta Leblanc MD (vice president education) Ramon Thomason MD have personally reviewed and interpreted this examination/study. > Interpreting Provider: Ramon Ross MD on 08/03/2024 9:31 AM Procedure Note Ramon Ross MD - 08/03/2024 PROCEDURE: XR CHEST 1VW PORTABLE, DATE/TIME OF EXAM: 08/02/2024 5:15 PM, LOCATION [facility] INDICATION: R11.0: Nausea without vomiting ADDITIONAL CLINICAL INFORMATION: Ordering Provider Reason For Exam: emesis Technologist Note: Additional: COMPARISON: None. FINDINGS/IMPRESSION: Tracheostomy tube is present. Mild bibasilar atelectasis. Left retrocardiac opacification couldrepresent atelectasis or aspiration seen on previous CT chest. Trace left pleural effusion. No right pleural effusion, or pneumothorax. The cardiomediastinal silhouette is normal. No acute osseousabnormality. > Dictated by Meeta Leblanc MD (vice president education) I, Ramon Ross MD have personally reviewed and interpreted this examination/study. > Interpreting Provider: Ramon Ross MD on 08/03/2024 9:31 AM Elmo Johnson MD DIAGNOSTIC IMAGING O RDERABLES * (ABNORMAL) URINALYSIS REFLEX TO MICROSCOPIC NO CULTURE (08/02/2024 5:08 PM SECURITY INCIDENT HANDLER) Color UA Yellow Yellow, Straw 08/02/2024 5:46 PM [facility] Clarity UA Turbid(A) Clear 08/02/2024 5:46 PM [facility] Glucose UA Normal Normal 08/02/2024 5:46 PM [facility] Bilirubin UA Negative Negative 08/02/2024 5:46 PM [facility] Ketone UA Negative Negative 08/02/2024 5:46 PM [facility] Specific Mozelle UA 1.015 1.005 - 1.030 08/02/2024 5:46 PM [facility] Blood UA Negative Negative 08/02/2024 5:46 PM [facility] pH UA 7.0 5.0 - 9.0 pH 08/02/2024 5:46 PM [facility] Protein UA Trace(A) Negative 08/02/2024 5:46 PM [facility] Urobilinogen UA 3.0(A) Normal mg/dL 08/02/2024 5:46 PM [facility] Nitrite UA Positive(A) Negative 08/02/2024 5:46 PM [facility] Leukocyte UA 500 NOEL/uL(A) Negative 08/02/2024 5:46 PM [facility] RBC UA 11-20(A) 0 - 5 # /hpf 08/02/2024 5:46 PM [facility] WBC UA >100(A) 0 - 5 # /hpf 08/02/2024 5:46 PM [facility] Bacteria UA 1+(A) None Seen 08/02/2024 5:46 PM [facility] Squamous Epithelial Cells None Seen 0 - 5 /hpf 08/02/2024 5:46 PM [facility] Urine URINE SPECIMEN OBTAINED BY SINGLE CATHETERIZATION OF URINARY BLADDER / Unknown Collection / Unknown 08/02/2024 5:08 PM SECURITY INCIDENT HANDLER 08/02/2024 5:11 PM SECURITY INCIDENT HANDLER Elmo Johnson MD LAB - URINALYSIS ORD ERABLES [facility] [address] [place] [address], [facility] [phone] * (ABNORMAL) CBC W AUTO DIFFERENTIAL (08/02/2024 5:08 PM SECURITY INCIDENT HANDLER) Only the most recent of9 resultswithin the time period is included. WBC 8.4 4.0 - 10.7 x10E9/L 08/02/2024 5:22 PM [facility] RBC Count 4.27(L) 4.30 - 5.80 x10E12/L 08/02/2024 5:22 PM [facility] Hemoglobin 13.6 13.3 - 17.5 g/dL 08/02/2024 5:22 PM [facility] Hematocrit 41.1 38.7 - 51.1 % 08/02/2024 5:22 PM [facility] MCV 96.3 80.0 - 98.0 fL 08/02/2024 5:22 PM [facility] MCH 31.9 26.7 - 33.6 pg 08/02/2024 5:22 PM [facility] MCHC 33.1 31.7 - 36.3 g/dL 08/02/2024 5:22 PM [facility] RDW-CV 13.2 11.3 - 14.8 % 08/02/2024 5:22 PM [facility] Platelet Count 250 150 - 420 x10E9/L 08/02/2024 5:22 PM [facility] MPV 13.0(H) 7.8 - 11.4 fL 08/02/2024 5:22 PM [facility] Neutrophil % 68.1 41.0 - 74.0 % 08/02/2024 5:22 PM [facility] Lymphocyte % 22.2 17.0 - 47.0 % 08/02/2024 5:22 PM [facility] Monocyte % 6.8 3.0 - 11.0 % 08/02/2024 5:22 PM [facility] Eosinophil % 2.3 0.0 - 7.0 % 08/02/2024 5:22 PM [facility] Basophil % 0.4 0.0 - 1.6 % 08/02/2024 5:22 PM [facility] Immature Granulocytes % 0.2 0.0 - 1.0 % 08/02/2024 5:22 PM [facility] Neutrophil Absolute 5.70 1.60 - 7.50 x10E9/L 08/02/2024 5:22 PM [facility] Lymphocyte Absolute 1.86 1.00 - 4.40 x10E9/L 08/02/2024 5:22 PM [facility] Monocyte Absolute 0.57 0.15 - 1.00 x10E9/L 08/02/2024 5:22 PM [facility] Eosinophil Absolute 0.19 0.00 - 0.60 x10E9/L 08/02/2024 5:22 PM [facility] Basophil Absolute 0.03 0.00 - 0.13 x10E9/L 08/02/2024 5:22 PM [facility] Blood BLOOD SPECIMEN / Unknown Venipuncture / Unknown 08/02/2024 5:08 PM SECURITY INCIDENT HANDLER 08/02/2024 5:14 PM [facility] Elmo Johnson MD LAB - HEMATOLOGY ORD ERABLES Performing Organization Address City/State/[facility] Co de Phone Number [facility] [address] [place] [phone], [facility] [phone] * (ABNORMAL) COMPREHENSIVE METABOLIC PANEL (08/02/2024 5:08 PM [facility]) Only the most recent of7 resultswithin the time period is included. BUN 14 7 - 26 mg/dL 08/02/2024 5:44 PM [facility] Creatinine 0.57(L) 0.71 - 1.16 mg/dL 08/02/2024 5:44 PM [facility] Sodium 140 136 - 145 mmol/L 08/02/2024 5:44 PM [facility] Potassium 4.5 3.5 - 4.5 mmol/L 08/02/2024 5:44 PM [facility] Chloride 105 98 - 107 mmol/L 08/02/2024 5:44 PM [facility] CO2 25 22 - 29 mmol/L 08/02/2024 5:44 PM [facility] Glucose 102(H) 70 - 99 mg/dL 08/02/2024 5:44 PM [facility] Calcium 9.6 8.4 - 10.2 mg/dL 08/02/2024 5:44 PM [facility] Protein Total 7.6 6.0 - 8.3 g/dL 08/02/2024 5:44 PM [facility] Albumin 3.8 3.4 - 5.0 g/dL 08/02/2024 5:44 PM [facility] Bilirubin Total 0.4 0.2 - 1.2 mg/dL 08/02/2024 5:44 PM [facility] Alkaline Phosphatase 94 40 - 150 U/L 08/02/2024 5:44 PM [facility] ALT 14 5 - 55 U/L 08/02/2024 5:44 PM [facility] AST 25 5 - 34 U/L 08/02/2024 5:44 PM [facility] Anion Gap 10 6 - 16 08/02/2024 5:44 PM [facility] BUN/Creatinine Ratio 25(H) 7 - 23 08/02/2024 5:44 PM [facility] Osmolality Calculated 291 275 - 295 mOsm/kg 08/02/2024 5:44 PM [facility] Albumin/Globulin Ratio 1.0(L) 1.1 - 2.3 08/02/2024 5:44 PM [facility] eGFR by CKD-EPI >90 >=90 mL/min/1.7 3 m2 08/02/2024 5:44 PM [facility] Blood BLOOD SPECIMEN / Unknown Venipuncture / Unknown 08/02/2024 5:08 PM SECURITY INCIDENT HANDLER 08/02/2024 5:14 PM [facility] Elmo Johnson MD LAB - CHEMISTRY [facility] [address] [address], [facility] [phone] * LIPASE BLOOD (08/02/2024 5:08 PM SECURITY INCIDENT HANDLER) Only the most recent of5 resultswithin the time period is included. [facility] Lipase 18 8 - 78 U/L 08/02/2024 5:44 PM SECURITY INCIDENT HANDLER [facility] Blood BLOOD SPECIMEN / Unknown Venipuncture / Unknown 08/02/2024 5:08 PM SECURITY INCIDENT HANDLER 08/02/2024 5:14 PM SECURITY INCIDENT HANDLER Narrative [facility] - 08/02/2024 5:44 PM SECURITY INCIDENT HANDLER Lipase results from the [employer] Alinity analyzer may not be comparable with other methodologies. Elmo Johnson MD LAB - CHEMISTRY [facility] Performing Organization Address [facility]/ZIP Co de Phone Number [address] [address], [facility] [phone] * TROPONIN-I HIGH SENSITIVE BASELINE + 1HR (07/27/2024 6:26 PM SECURITY INCIDENT HANDLER) Only the most recent of2 resultswithin the time period is included. [facility] Troponin I High Sensitive 5 <=35 ng/L 07/27/2024 7:09 PM SECURITY INCIDENT HANDLER [facility] Blood BLOOD SPECIMEN / Unknown Venipuncture / Unknown 07/27/2024 6:26 PM SECURITY INCIDENT HANDLER 07/27/2024 6:37 PM SECURITY INCIDENT HANDLER Serjio Vilchis MD LAB - CHEMISTRY [facility] [address] [address], [facility] [phone] * EKG 12-LEAD (07/27/2024 5:34 PM SECURITY INCIDENT HANDLER) [facility] Ventricular Rate 84 BPM [facility] MUSE Atrial Rate 84 BPM [facility] MUSE P-R Interval 160 ms [facility] MUSE QRS Duration ms 76 ms [facility] MUSE Q-T Interval ms 364 ms [facility] MUSE QTC Calculation (Bezet) 430 ms [facility] MUSE Calculated P [place] 49 degrees SL MUSE Calculated R [place] -25 degrees [facility] MUSE Calculated T [place] 56 degrees [facility] MUSE Interpretation EKG NORMAL SINUS RHYTHM SEPTAL INFARCT , AGE UNDETERMINED INFERIOR INFARCT , AGE UNDETERMINED ABNORMAL ECG WHEN COMPARED WITH ECG OF 19-FEB-2024 17:27, SEPTAL INFARCT IS NOW PRESENT INFERIOR INFARCT IS NOW PRESENT Confirmed by MD ABENA, CLEMENTE ([id number]) on 07/30/2024 2:44:30 PM [facility] MUSE 07/27/2024 5:34 PM SECURITY INCIDENT HANDLER 07/30/2024 2:44 PM SECURITY INCIDENT HANDLER Serjio Vilchis MD ECG ORDERABLES [facility] MUSE * PATHOLOGY TISSUE (07/18/2024 4:27 PM SECURITY INCIDENT HANDLER) Case Report Surgical Pathology Report Case: [id number] Authorizing Provider: Clifton Trinh, Collected: 07/18/2024 04:27 PM Ordering Location: [facility] ENDOSCOPY Received: 07/19/2024 10:00 AM Pathologist: Mara Pascual MD Specimen: Gastric, Gastric Antrum Biopsies 07/20/2024 3:51 PM [facility] PATHOLOGY LAB Final Diagnosis Stomach, antrum, biopsy (A): - Superficial erosion in a background of reactive gastropathy, SEE COMMENT 07/20/2024 3:51 PM [facility] PATHOLOGY LAB Microscopic Description and Comment The [...] true H. pylori infection. 07/20/2024 3:51 PM [facility] PATHOLOGY LAB Clinical History The patient is a 64-year-old man with suspected upper gastrointestinal bleeding and melena. Operative procedure/findings: EGD - small esophageal diverticulum; benign-appearing intrinsic stenosis at the proximal and distal esophagus, dilated; broad irregular area of mucosa along the lesser curvature with superficial erosion, biopsied 07/20/2024 3:51 PM [facility] PATHOLOGY LAB Gross Description The requisition and specimen(s) are identified with the patient's name, Bi Tabor. Received in formalin, specimen A , are four marie-pink tissue fragments, 0.1-0.3 cm, 0.4 x 0.3 x 0.1 cm in aggregate , submitted in toto in cassette A1. The two smallest fragments are friable and may not survive processing. IKD 07/20/2024 3:51 PM [facility] PATHOLOGY LAB Pathologist Location at [facility] 07/20/2024 3:51 PM [facility] PATHOLOGY LAB Disclaimer The performance characteristics of all immunohistochemical and indirect immunofluorescence stains (if any) cited in this report were determined by the Histopathology Laboratory of [facility]. Some of these tests were [...] the attending (teaching) pathologist. 07/20/2024 3:51 PM [facility] PATHOLOGY LAB Embedded Images 07/20/2024 3:51 PM [facility] PATHOLOGY LAB Biopsy, NOS GASTRIC CONTENTS SPECIMEN / Unknown 07/18/2024 4:27 PM SECURITY INCIDENT HANDLER 07/19/2024 10:00 AM [facility] Comment:Pre-op diagnosis: Coffee ground emesis [K92.0] Clifton Alejandra MD LAB - PATHOL OGY/CYTOLOGY ORDERABLES [facility] PATHOLOGY LAB [address] [place], [place] [address] [phone] * EGD (07/18/2024 3:52 PM SECURITY INCIDENT HANDLER) Report Endoscopy POC Endoscopy Department Report __ [...] entire procedure. Procedure Code(s): --- Professional --- 66888, Esophagogastroduode noscopy, flexible, transoral; with biopsy, single or multiple Diagnosis Code(s): --- Professional --- K31.89, Other diseases of stomach and duodenum K92.1, Melena (includes Hematochezia) CPT copyright 2021 [employer]. All rights reserved. The codes documented in this report are preliminary and upon recovery room rn review may be revised to meet current compliance requirements. Clifton Alejandra MD 07/18/2024 4:45:03 PM Note Initiated On: 07/18/2024 3:52 PM Number of Addenda: [address] [address] [facility] 07/18/2024 3:52 PM SECURITY INCIDENT HANDLER Aaron Delgado III, MD GI PROCEDURE OR DERABLES Performing Organization Address City/[facility]/ZIP Co de Phone Number [facility]OVATION * PHOSPHORUS BLOOD (07/18/2024 8:07 AM SECURITY INCIDENT HANDLER) Only the most recent of3 resultswithin the time period is included. Phosphorus 4.2 2.8 - 5.1 mg/dL 07/18/2024 8:52 AM SECURITY INCIDENT HANDLER [facility] Blood BLOOD SPECIMEN / Unknown Lab Venipuncture / Unknown 07/18/2024 8:07 AM SECURITY INCIDENT HANDLER 07/18/2024 8:24 AM SECURITY INCIDENT HANDLER Marianne Daniels MD LAB - CHEMISTRY [facility] Performing Organization Address [facility]/ZIP Co de Phone Number [address] [address], [place] [phone] * VALPROIC ACID LEVEL (07/18/2024 8:07 AM SECURITY INCIDENT HANDLER) Valproic Acid Total 74 50 - 100 ug/mL 07/18/2024 8:41 AM SECURITY INCIDENT HANDLER [facility] Blood BLOOD SPECIMEN / Unknown Lab Venipuncture / Unknown 07/18/2024 8:07 AM SECURITY INCIDENT HANDLER 07/18/2024 8:19 AM SECURITY INCIDENT HANDLER Marianne Daniels MD LAB - CHEMISTRY [facility] Performing Organization Address City/[facility]/ZIP Co de Phone Number [address] [address], [place] [phone] * CARDIAC EKG ORDER (07/17/2024 1:44 PM SECURITY INCIDENT HANDLER) Narrative 07/17/2024 1:44 PM SECURITY INCIDENT HANDLER Ordered by an unspecified provider. Scanned Document CARDIAC SERVICES ORD ERABLES * (ABNORMAL) URINE MICROSCOPIC ONLY REFLEX TO CULTURE (07/17/2024 9:58 AM SECURITY INCIDENT HANDLER) Reflex Status Culture to follow 07/17/2024 10:42 AM [facility] WBC UA 21-50(A) None Seen, 0-5 /HPF 07/17/2024 10:42 AM [facility] Bacteria UA 1+(A) None /HPF 07/17/2024 10:42 AM [facility] Squamous Epithelial Cells UA None Seen None Seen, 0-2, 3-5 /HPF 07/17/2024 10:42 AM [facility] Urine URINE SPECIMEN OBTAINED BY CLEAN CATCH PROCEDURE / Unknown Collection / Unknown 07/17/2024 9:58 AM SECURITY INCIDENT HANDLER 07/17/2024 10:02 AM [facility] Narrative [facility] - 07/17/2024 10:42 AM SECURITY INCIDENT HANDLER Quan Gan MD LAB - URINALYSIS ORD ERABLES [facility] [address] [place] [phone], [facility] [phone] * (ABNORMAL) URINALYSIS REFLEX MICROSCOPIC REFLEX CULTURE (07/17/2024 9:58 AM SECURITY INCIDENT HANDLER) Only the most recent of3 resultswithin the time period is included. Color UA Yellow Straw, Yellow 07/17/2024 10:36 AM [facility] Clarity UA Slt Cloudy(A) Clear 07/17/2024 10:36 AM [facility] Specific Mozelle UA 1.027 1.005 - 1.030 07/17/2024 10:36 AM [facility] pH UA 8.0 5.0 - 8.0 pH 07/17/2024 10:36 AM [facility] Protein UA 1+(A) Negative 07/17/2024 10:36 AM [facility] Glucose UA Negative Negative 07/17/2024 10:36 AM [facility] Ketone UA Negative Negative 07/17/2024 10:36 AM [facility] Bilirubin UA Negative Negative 07/17/2024 10:36 AM [facility] Blood UA Negative Negative 07/17/2024 10:36 AM [facility] Nitrite UA Positive(A) Negative 07/17/2024 10:36 AM [facility] Leukocyte Esterase 1+(A) Negative 07/17/2024 10:36 AM [facility] Urobilinogen UA 4.0(A) Negative mg/dL 07/17/2024 10:36 AM [facility] Urine URINE SPECIMEN OBTAINED BY CLEAN CATCH PROCEDURE / Unknown Collection / Unknown 07/17/2024 9:58 AM SECURITY INCIDENT HANDLER 07/17/2024 10:02 AM SECURITY INCIDENT HANDLER Narrative [facility] - 07/17/2024 10:36 AM SECURITY INCIDENT HANDLER Quan Gan MD LAB - URINALYSIS ORD ERABLES [address] [address], [facility] [phone] * TROPONIN-I HIGH SENSITIVE REFLEX 1HOUR (07/17/2024 12:03 AM SECURITY INCIDENT HANDLER) [facility] Troponin I High Sensitive 7 <=35 ng/L 07/17/2024 12:48 AM [facility] Delta Troponin I HS 0 <6 ng/L 07/17/2024 12:48 AM [facility] Blood BLOOD SPECIMEN / Unknown Venipuncture / Unknown 07/17/2024 12:03 AM SECURITY INCIDENT HANDLER 07/17/2024 12:11 AM SECURITY INCIDENT HANDLER Quan Gan MD LAB - CHEMISTRY ORDE GATITO [address] [address], [place] [phone] * SARS-COV-2 (COVID-19) FLU A/B RSV PCR RAPID (07/17/2024 12:03 AM SECURITY INCIDENT HANDLER) [facility] COVID-19 PCR Not detected Not detected 07/17/19 25 12:51 AM [facility] Influenza A PCR Not detected Not detected 07/17/2024 12:51 AM [facility] Influenza B PCR Not detected Not detected 07/17/2024 12:51 AM [facility] RSV PCR Not detected Not detected 07/17/2024 12:51 AM [facility] Microbiology SPECIMEN FROM NASOPHARYNGEAL STRUCTURE / Unknown Collection / Unknown 07/17/2024 12:03 AM SECURITY INCIDENT HANDLER 07/17/2024 12:11 AM SECURITY INCIDENT HANDLER [facility] - 07/17/2024 12:51 AM SECURITY INCIDENT HANDLER This nucleic acid amplification assay has been [...] Gan MD LAB - MICROBIOLOGY O RDERABLES [facility] [address] [place] [address], [facility] [phone] * CT Abdomen Pelvis W Contrast (07/16/2024 11:41 PM SECURITY INCIDENT HANDLER) Anatomical Region Laterality Modality Abdomen, Pelvis Computed Tomogra phy 07/17/2024 12:0 2 AM SECURITY INCIDENT HANDLER Impressions 07/17/2024 8:29 AM SECURITY INCIDENT HANDLER Impression: 1.No acute process identified in the [...] obstruction. > Dictated by Ashu Welch MD (vice president education). I, Bebo Kuo MD have personally reviewed and interpreted this examination/study. > Interpreting Provider: Bebo Kuo MD on 07/17/2024 8:29 AM Narrative 07/17/2024 8:29 AM SECURITY INCIDENT HANDLER PROCEDURE: CT ABDOMEN PELVIS W CONTRAST, DATE/TIME OF EXAM: 07/16/2024 11:42 PM, LOCATION [facility] INDICATION: R11.2: Nausea and vomiting, unspecified vomiting [...] DATE/TIME OF EXAM: 07/16/2024 11:42 PM, LOCATION [facility] INDICATION: R11.2: Nausea and vomiting, unspecified vomiting [...] obstruction. > Dictated by Ashu Welch MD (vice president education). I, Bebo Kuo MD have personally reviewed and interpreted this examination/study. > Interpreting Provider: Bebo Kuo MD on 58:29 AM Quan Gan MD CT ORDERABLES * LACTIC ACID BLOOD REFLEX TO REPEAT (07/16/2024 10:44 PM SECURITY INCIDENT HANDLER) Lactic Acid-Stat 1.9 <=2.0 mmol/L 07/16/2024 11:19 PM SECURITY INCIDENT HANDLER [facility] Blood BLOOD SPECIMEN / Unknown Venipuncture / Unknown 07/16/2024 10:44 PM SECURITY INCIDENT HANDLER 07/16/2024 10:52 PM SECURITY INCIDENT HANDLER Quan Gan MD LAB - CHEMISTRY [facility] [address] [place] [address], [place] [phone] * CK BLOOD (07/16/2024 10:44 PM SECURITY INCIDENT HANDLER) CK Total 92 30 - 200 U/L 07/16/2024 11:23 PM [facility] Blood BLOOD SPECIMEN / Unknown Venipuncture / Unknown 07/16/2024 10:44 PM SECURITY INCIDENT HANDLER 07/16/2024 10:52 PM SECURITY INCIDENT HANDLER Quan Gan MD LAB - CHEMISTRY [facility] Performing Organization Address City/[facility]/ZIP Co de Phone Number [facility] [address] [place] [address], [place] [phone] * (ABNORMAL) BASIC METABOLIC PANEL (CALCIUM TOTAL) (06/08/2024 4:11 AM SEC[employer] INCIDENT [employer]ER) BUN 14 7 - 26 mg/dL 06/08/2024 4:58 AM [facility] Creatinine 0.57(L) 0.71 - 1.16 mg/dL 06/08/2024 4:58 AM [facility] Sodium 140 136 - 145 mmol/L 06/08/2024 4:58 AM [facility] Potassium 3.9 3.5 - 4.5 mmol/L 06/08/2024 4:58 AM [facility] Chloride 108(H) 98 - 107 mmol/L 06/08/2024 4:58 AM [facility] CO2 27 22 - 29 mmol/L 06/08/2024 4:58 AM [facility] Glucose 105(H) 70 - 99 mg/dL 06/08/2024 4:58 AM [facility] Calcium 9.3 8.4 - 10.2 mg/dL 06/08/2024 4:58 AM [facility] Anion Gap 5(L) 6 - 16 06/08/2024 4:58 AM [facility] BUN/Creatinine Ratio 25(H) 7 - 23 06/08/2024 4:58 AM [facility] Osmolality Calculated 291 275 - 295 mOsm/kg 06/08/2024 4:58 AM [facility] eGFR by CKD-EPI >90 >=90 mL/min/1.7 3 m2 06/08/2024 4:58 AM [facility] Blood BLOOD SPECIMEN / Unknown Venipuncture / Unknown 06/08/2024 4:11 AM SEC[employer] INCIDENT HANDLER 06/08/2024 4:18 AM SEC[employer]ITY INCIDENT HANDLER Lilliam Isaacs APRN-YARD LABORER LAB - CHEMISTRY ORDERABLES [address] [id number], [facility] [phone] * (ABNORMAL) LIPID PROFILE (06/08/2024 4:11 AM [facility]) Cholesterol Total 136 <200 mg/dL 06/08/2024 4:49 AM [facility] HDL 35(L) >40 mg/dL 06/08/2024 4:49 AM [facility] Comment: ATP III Classification of HDL Cholesterol: <40 mg/dL: Considered a major risk factor. >60 mg/dL: Considered a negative risk factor. LDL Calculated 88 <100 mg/dL 06/08/2024 4:49 AM [facility] Comment: ATP III Classification of LDL Cholesterol: <100 mg/dL: Optimal 100 - 129 mg/dL: Near Optimal/Above Optimal 130 - 159 mg/dL: Borderline High 160 - 189 mg/dL: High >190 mg/dL: Very High Triglycerides 65 <150 mg/dL 06/08/2024 4:49 AM [facility] Comment: ATP III Classification of Triglycerides: <150 mg/dL: Normal 150 - 199 mg/dL: Borderline High 200 - 400 mg/dL: High >500 mg/dL: Very High Blood BLOOD SPECIMEN / Unknown Venipuncture / Unknown 06/08/2024 4:11 AM SECURITY INCIDENT HANDLER 06/08/2024 4:18 AM SECURITY INCIDENT HANDLER Lilliam BYERSYARD LABORER LAB - CHEMISTRY ORDERABLES [address] [address], [facility] [phone] * HEPATITIS C AB SCREEN RFLX NAAT QUANT (09/01/2022 2:05 AM CDT) Pathologist [facility] Hepatitis C Antibody Non-react phan Non-reac tive 09/01/2022 3:09 AM CDT [facility] Comment:Hepatitis C Antibody screen indicates no [...] - CHEMISTRY MARSHAL MEDEROS Performing Organization Address [facility] Co de Phone Number [address] [address], [facility] [phone] * HIV-1 HIV-2 ANTIBODY + HIV P24 AG PANEL (09/01/2022 2:05 AM CDT) Pathologist [facility] HIV Antigen/Antibod y 1 & 2 Non-reacti ve Non-react phan 09/01/2022 3:09 AM CDT [facility] Comment:No Laboratory eviden ce of HIV infection. Blood BLOOD SPECIMEN / Unknown Venipuncture / Unknown 09/01/2022 2:05 AM CDT 09/01/2022 2:15 AM CDT Artemio Abarca MD LAB - CHEMISTRY MARSHAL MEDEROS Performing Organization Address 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 Source: [facility]. 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
--- OUTSIDE RECORDS SUMMARY | 2024-08-09 01:07 | XMS_ITS | Encounter Summary ---
Author Organization [facility] - [facility] Address [address] [place] [address] Care Team Providers Care Financial Internship Name Role Phone Frank Toure MD Unavailable Joyce Luevano NP Primary Care Provider Unavaila Marielena Adame MD Primary Care Provider [phone] Encounter Details Date Type Department Care Team (Late st Contact Info) Description 02/23/2022 Atria Brindavan Powert Message Enc [facility] Family Medicine - [address] [address] Joyce Luevano, PERSONAL ATTENDANT [employer] [place] Social History Tobacco Use Types [...] 11:25 AM CDT Message sent through other [place] chart message * Yonatan Rodriguez RN - 02/23/2022 10:24 AM CDT Please see note. Thanks documented in this encounter Plan of Treatment Not on file documented as of this encounter Visit Diagnoses Not on filedocumented in this encounter Care Teams Financial Internship Relationship Specialty Start Date End Date Joyce Luevano NP [address] [place] [address] PCP - General NURSE PRACTITIONER 01/14/20 10/26/23 Marielena Smallwood MD [address] [place] [id number] PCP - General FAMILY PRACTICE 10/27/23 Frank Toure MD [address] [place] [address] [place] Application Analyst CARDIOVASCULAR DISEASE 05/30/16 documented as of this encounter
--- OUTSIDE RECORDS SUMMARY | 2024-08-09 01:07 | XMS_ITS | Patient Health Summary ---
Author Organization [facility] Address [address] [place] [address] Care Team Providers Care Recycling Operations Manager Name Role Phone Elizabeth Sullivan RN Unavailable Dany Monsivais MD Primary Care Provider [phone] Note from [facility],non-owned Affiliates and Associated Physician Practices is amultiple site organization consisting of ambulatory clinics and hospital sitesin [place], [place], [place] and [place]. This disclosure is being madepursuant to the Care Everywhere program and may not contain all information available regarding this patient. Last updated 18.[facility] Allergies * Clonazepam(Psychiatric) -Medium Criticality Medications [...] Enteral Tube route 2 times daily * Calcium Carbonate Antacid (calcium carbonate, [...] for Shortness of Breath or Wheezing * cloBAZam (Onfi) 10 MG tablet(Started 05/15/2024) Take 1 (one) tablet by mouth 2 times daily 5 refills by 11/11/2024 * finasteride (Proscar) 5 [...] 6 hours as needed for Nausea/Vomiting * levETIRAcetam (Keppra) 100 MG/ML oral solution(Started 07/18/2024) 17.5 mL by Enteral Tube route 2 times daily for 90 days 2 refills by 07/18/2025 * pantoprazole (Protonix) 40 MG packet(Started 07/18/2024) Take 1 (one) packet by mouth 2 times daily for 60 days * valproic acid (Depakene) 250 MG/5ML solution(Started 07/18/2024) 10 mL by Per G Tube route every 8 hours * acetaminophen (Tylenol) 325 MG tablet(Started 08/08/2024) 2 (two) tablets by Enteral Tube route 3 times daily Maximum allowable Acetaminophen amount = 4 Grams (4000 mg) / 24 hours. Pt takes 160 mg/5mL liquid which is the same as 325 mg tab * pantoprazole EC (Protonix) 40 MG tablet(Started 08/08/2024) Take 1 (one) tablet by mouth 2 times daily Ended Medications* acetaminophen (Tylenol) 325 MG tablet(Started 01/12/2023) (Discontinued) 2 (two) tablets by Enteral Tube route every 6 hours as needed Maximum allowable Acetaminophen amount = 4 Grams (4000 mg) / 24 hours. * apixaban (Eliquis) 5 MG tablet(Started 09/10/2023)(Discontinued) Take 1 (one) tablet by mouth 2 times daily Per G-tube * levETIRAcetam (Keppra) 100 MG/ML oral solution(Started 05/15/2024) (Discontinued) 20 mL by Enteral Tube route 2 times daily for 90 days 2 refills by 05/15/2025 * lacosamide (Vimpat) 200 MG tablet(Started 05/15/2024)(Discontinued) Take 1 (one) tablet by mouth 2 times daily for 90 days 2 refills by 11/11/2024 * pantoprazole (Protonix) 40 MG packet(Started 06/09/2024)(Discontinued) Take 1 (one) packet by mouth 2 times daily for 60 days * valproic acid (Depakene) 250 MG/5ML solution(Started 06/09/2024)(Discontinued) 25 mL by Per G Tube route every 6 hours * valproic acid (Depakene) 250 MG/5ML solution(Discontinued) Take 10 mL by mouth every 6 [...] and heating? Not hard at all 08/06/2024 [facility] [place] [facility] Occupat ional Health - Occupational Stress [...] a senior living (including now)? No 06/19/2023 Housing Stability Vital Sign Answer Vinay e Recorded In the last 12 months, was t here a time when you were not able to pay the mortgage or rent on time? No 08/06/2024 In the past 12 months, how m any times have you moved where you were living? 1 08/06/2024 At any time in the past 12 m [facility], were you homeless or living in a senior living (including now)? No 08/06/2024 Sex and Gender [...] 72.6 kg (160 lb) 08/04/2024 12:00 AM DIGITAL SALES MANAGER Height 175.3 cm (5' 9.02 ) 08/04/2024 12:[address] Body Mass Index 23.62 08/04/2024 12:00 AM DIGITAL SALES MANAGER Procedures * IR PERC GJ TUBE REPLACEMENT(Performed 08/06/2024) Performed for PEG (percutaneous endoscopic gastrostomy) status (HCC) * CT ABDOMEN WO CONTRAST(Performed 08/06/2024) Performed for Nausea without vomiting, PEG (percutaneous endoscopic gastrostomy) status (HCC) * GLUCOSE - POINT OF CARE(Performed 08/06/2024) * XR ABDOMEN KUB PORTABLE(Performed 08/05/2024) Performed for Nausea and vomiting, unspecified vomiting type * GLUCOSE - POINT OF CARE(Performed 08/05/2024) * CBC W/O DIFFERENTIAL(Performed 08/05/2024) Performed for Nausea without vomiting * PT-INR SLH(Performed 08/05/2024) Performed for Nausea without vomiting * MAGNESIUM BLOOD(Performed 08/05/2024) Performed for Nausea without vomiting * RENAL FUNCTION PANEL(Performed 08/05/2024) Performed for Nausea without vomiting * CBC W/O DIFFERENTIAL(Performed 08/04/2024) Performed for Nausea without vomiting * PSA FREE + TOTAL PANEL(Performed 08/04/2024) Performed for Acute cystitis without hematuria * PT-INR SLH(Performed 08/04/2024) Performed for Nausea without vomiting * MAGNESIUM BLOOD(Performed 08/04/2024) Performed for Nausea without vomiting * RENAL FUNCTION PANEL(Performed 08/04/2024) Performed for Nausea without vomiting * CULTURE URINE(Performed 08/03/2024) Performed for Acute cystitis without hematuria * HEMOGLOBIN A1C(Performed 08/03/2024) Performed for Nausea without vomiting * CBC W/O DIFFERENTIAL(Performed 08/03/2024) Performed for Nausea without vomiting * PT-INR SLH(Performed 08/03/2024) Performed for Nausea without vomiting * MAGNESIUM BLOOD(Performed 08/03/2024) Performed for Nausea without vomiting * RENAL FUNCTION PANEL(Performed 08/03/2024) Performed for Nausea without vomiting * TYPE + SCREEN PANEL(Performed 08/02/2024) * CT CHEST ABDOMEN PELVIS W CONT(Performed 08/02/2024) Performed for Nausea without vomiting * XR CHEST 1VW PORTABLE(Performed 08/02/2024) Performed for Nausea without vomiting * URINALYSIS REFLEX TO MICROSCOPIC NO CULTURE(Performed 08/02/2024) * PT-INR SLH(Performed 08/02/2024) * COMPREHENSIVE METABOLIC PANEL(Performed 08/02/2024) * LIPASE BLOOD(Performed 08/02/2024) * CBC W AUTO DIFFERENTIAL(Performed 08/02/2024) * XR CHEST 1VW PORTABLE(Performed 08/02/2024) Performed for Abdominal pain, unspecified abdominal location * LIPASE BLOOD(Performed 08/02/2024) * COMPREHENSIVE METABOLIC PANEL(Performed 08/02/2024) * CBC W AUTO DIFFERENTIAL(Performed 08/02/2024) * CT CHEST ABDOMEN PELVIS W CONT(Performed 07/28/2024) Performed for Generalized abdominal pain * COMPREHENSIVE METABOLIC PANEL(Performed 07/27/2024) * CBC W AUTO DIFFERENTIAL(Performed 07/27/2024) * TROPONIN-I HIGH SENSITIVE BASELINE + 1HR(Performed 07/27/2024) * MAGNESIUM BLOOD(Performed 07/27/2024) * LIPASE BLOOD(Performed 07/27/2024) * EKG 12-LEAD(Performed 07/27/2024) Performed for Generalized abdominal pain * XR CHEST 1VW PORTABLE(Performed 07/27/2024) Performed for Nausea and vomiting, unspecified vomiting type * GLUCOSE - POINT OF CARE(Performed 07/19/2024) * GLUCOSE - POINT OF CARE(Performed 07/19/2024) * GLUCOSE - POINT OF CARE(Performed 07/19/2024) * CBC W AUTO DIFFERENTIAL(Performed 07/19/2024) Performed for Coffee ground emesis * GLUCOSE - POINT OF CARE(Performed 07/19/2024) * GLUCOSE - POINT OF CARE(Performed 07/18/2024) * GLUCOSE - POINT OF CARE(Performed 07/18/2024) * PATHOLOGY TISSUE(Performed 07/18/2024) Performed for Coffee ground emesis * ND ED EGD FLEX TRANSORAL DX(Performed 07/18/2024) Performed for Coffee ground emesis * EGD(Performed 07/18/2024) * GLUCOSE - POINT OF CARE(Performed 07/18/2024) * GLUCOSE - POINT OF CARE(Performed 07/18/2024) * CBC W AUTO DIFFERENTIAL(Performed 07/18/2024) Performed for Coffee ground emesis * PT-INR SLH(Performed 07/18/2024) Performed for Nausea and vomiting, unspecified vomiting type * VALPROIC ACID LEVEL(Performed 07/18/2024) Performed for Nausea and vomiting, unspecified vomiting type * PHOSPHORUS BLOOD(Performed 07/18/2024) Performed for Coffee ground emesis * COMPREHENSIVE METABOLIC PANEL(Performed 07/18/2024) Performed for Coffee ground emesis * MAGNESIUM BLOOD(Performed 07/18/2024) Performed for Coffee ground emesis * GLUCOSE - POINT OF CARE(Performed 07/18/2024) * GLUCOSE - POINT OF CARE(Performed 07/18/2024) * GLUCOSE - POINT OF CARE(Performed 07/17/2024) * GLUCOSE - POINT OF CARE(Performed 07/17/2024) * CARDIAC EKG ORDER(Performed 07/17/2024) * URINE MICROSCOPIC ONLY REFLEX TO CULTURE(Performed 07/17/2024) * URINALYSIS REFLEX MICROSCOPIC REFLEX CULTURE(Performed 07/17/2024) * CULTURE URINE(Performed 07/17/2024) * CBC W AUTO DIFFERENTIAL(Performed 07/17/2024) Performed for Coffee ground emesis * TROPONIN-I HIGH SENSITIVE REFLEX 1HOUR(Performed 07/17/2024) * CBC W AUTO DIFFERENTIAL(Performed 07/17/2024) * SARS-COV-2 (COVID-19) FLU A/B RSV PCR RAPID(Performed 07/17/2024) * CT ABDOMEN PELVIS W CONTRAST(Performed 07/16/2024) Performed for Nausea and vomiting, unspecified vomiting type, Abdominal distention, Other constipation * CK BLOOD(Performed 07/16/2024) * TROPONIN-I HIGH SENSITIVE BASELINE + 1HR(Performed 07/16/2024) * LIPASE BLOOD(Performed 07/16/2024) * LACTIC ACID BLOOD REFLEX TO REPEAT(Performed 07/16/2024) * COMPREHENSIVE METABOLIC PANEL(Performed 07/16/2024) * XR CHEST 1VW PORTABLE(Performed 07/16/2024) Performed for Nausea and vomiting, unspecified vomiting type * CBC W/O DIFFERENTIAL(Performed 06/09/2024) * GLUCOSE [...] * CBC W AUTO DIFFERENTIAL(Performed 09/06/2023) * ND SCOPE THRU TRACHEOSTOMY(Performed 08/29/2023) Performed for Oropharyngeal [...] PORTABLE(Performed 12/31/2022) Performed for Tracheostomy in place ([facility]) * CARDIAC EKG ORDER(Performed 12/17/2022) * GLUCOSE [...] organism, unspecified whether acute organ dysfunction present ([facility]) * CARDIAC EKG ORDER(Performed 06/03/2022) * PHOSPHORUS [...] 03/26/2022) * CBC W/O DIFFERENTIAL(Performed 03/26/2022) * ND ED EGD FLEX TRANSORAL DX(Performed 03/25/2022) Performed [...] PATHOLOGY TISSUE(Performed 03/15/2022) 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HCC) * AMPUTATION BELOW-KNEE(Performed 03/15/2022) 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HCC) * ENDOTRACHEAL TUBE NOTE(Performed 03/15/2022) * VANCOMYCIN LEVEL TROUGH(Performed 03/15/2022) * MRI FOOT LEFT WWO CONTRAST(Performed 03/15/2022) Performed for Bacteremia, PAD (peripheral artery disease) ([facility]) * MAGNESIUM BLOOD(Performed 03/14/2022) * RENAL FUNCTION [...] acute organ dysfunction, due to unspecified organism ([facility]) * URINALYSIS REFLEX TO MICROSCOPIC NO CULTURE(Performed [...] CBC W AUTO DIFFERENTIAL(Performed 04/11/2015) * PT-INR SLH(Performed 04/11/2015) * BLOOD GASES ARTERIAL(Performed 04/11/2015) * HEMOGLOBIN A1C(Performed 04/11/2015) * LIPID PROFILE(Performed 04/11/2015) * CBC W AUTO DIFFERENTIAL(Performed 04/11/2015) * ECHO COMPLETE(Performed 04/11/2015) * EKG 12-LEAD(Performed 04/11/2015) Results * IR Perc GJ Tube Replacement (08/06/2024 3:07 PM CDT) Anatomical Region Laterality Modality Abdomen X-Ray Angiograph y 08/06/2024 3:22 PM CDT Impressions 08/06/2024 3:35 PM CDT Impression: Successful exchange of the existing 18 Salvadorean gastrojejunostomy catheter for a new 18 Salvadorean gastrojejunostomy catheter under fluoroscopic guidance, as described [...] jelly Procedure: Exchange of the existing 18 Salvadorean gastrojejunostomy catheter for a new 18 Salvadorean gastrojejunostomy catheter under fluoroscopic guidance. Start time: 1435 End time: 1451 Fluoroscopic time: 4.0 minutes Contrast: 10 mL of Isovue-300 Procedure in detail: The procedure, risks, and possible complications were explained to the patient in detail, and informed consent was obtained. The patient was placed supine on the procedure table. A armature winder automotive film of abdomen was obtained, which showed [...] was removed over the wire. A 4 Salvadorean Kumpe catheter was advanced over the wire and using this combination, was advanced into the jejunum. The Kumpe catheter was then removed over the wire. A new 18 Salvadorean gastrojejunostomy catheter was then advanced over the [...] jelly Procedure: Exchange of the existing 18 Salvadorean gastrojejunostomy catheter for a new 18 Salvadorean gastrojejunostomy catheter under fluoroscopicguidance. Start time: 1435 End time: 1451 Fluoroscopic time: 4.0 minutes Contrast: 10 mL of Isovue-300 Procedure in detail: The procedure, risks, and possible complications were explained to the patient in detail, and informed consent was obtained. The patient was placed supine on the procedure table. A armature winder automotive film of abdomen wasobtained, which showed the [...] was removed over the wire. A 4 Salvadorean Kumpe catheter wasadvanced over the wire and using this combination, was advanced into the jejunum. The Kumpe catheter was then removed over the wire. A new 18 Salvadorean gastrojejunostomy catheter was then advanced over the guidewire under fluoroscopic guidance. The catheter was secured by balloon insufflation. Hand injection of contrast through the gastric port confirmedintraluminal position within the stomach. Hand injection of contrast through thejejunal port confirmed intraluminal position within the jejunum. Steriledressing was applied. The patient tolerated the procedure well and [facility]. There were no immediate complicationsassociated with the procedure. Impression: Successful exchange of the existing 18 Frenchgastrojejunostomy catheter for a new 18 Salvadorean gastrojejunostomy catheter underfluoroscopic guidance, as described above. [...] > Dictated by Yessica Lovell MD, (radiology director). I, Bebo Kuo MD have personally reviewed and interpreted this examination/study. > Interpreting Provider: Bebo Kuo MD on 08/06/2024 1:31 PM Narrative 08/06/2024 1:31 PM CDT PROCEDURE: CT ABDOMEN WO CONTRAST, DATE/TIME OF EXAM: 08/06/2024 11:01 AM, LOCATION [facility] INDICATION: R11.0: Nausea without vomiting Z93.1: PEG [...] CONTRAST, DATE/TIME OF EXAM: 08/06/2024 11:01AM, LOCATION [facility] INDICATION: R11.0: Nausea without vomiting Z93.1: PEG [...] Dictated by Yessica Lovell MD, MD (radiology director). IBebo MD have personally reviewed and interpreted this examination/study. > Interpreting Provider: Bebo Kuo MD on 51:31 PM Yary James MD CT ORDERABLES * GLUCOSE - POINT OF CARE (08/06/2024 6:45 AM CDT) Only the most recent of462 resultswithin the time period is included. Glucose WB/POC 92 70 - 99 mg/dL 08/06/2024 6:[address] [facility] Specimen Type Cap Fingerstick 2024 6:[address] [facility] Blood BLOOD SPECIMEN / Unknown 08/06/2024 6:45 AM CDT 08/06/2024 6:46 AM CDT Yary James MD LAB - POINT OF CARE ORDERABLES [facility] [address] [place] [id number], [facility] [phone] * XR Abdomen Kub Portable (08/05/2024 6:14 AM CDT) Only the most recent of9 resultswithin the time period is included. Anatomical Region Laterality Modality Abdomen Digital Radiogra phy 08/05/2024 9:25 AM CDT Impressions 08/05/2024 5:10 PM CDT IMPRESSION: No radiographic evidence of acute intra-abdominal process. Report dictated by Sierra Lyman Dr, MD (radiology director). IRamon MD have personally reviewed and interpreted this examination/study. > Interpreting Provider: Ramon Ross MD on 08/05/2024 5:10 PM Narrative 08/05/2024 5:10 PM CDT PROCEDURE: XR ABDOMEN KUB PORTABLE, DATE/TIME OF EXAM: 08/05/2024 6:14 AM, LOCATION [facility] INDICATION: R11.2: Nausea and vomiting, unspecified vomiting [...] PORTABLE, DATE/TIME OF EXAM: 08/05/2024 6:14AM, LOCATION [facility] INDICATION: R11.2: Nausea and vomiting, unspecified vomiting [...] dictated by Sierra Lyman Dr, MD (radiology director). I, Ramon Ross MD have personally reviewed and interpreted this examination/study. > Interpreting Provider: Ramon Ross MD on 08/05/2024 5:10 PM Neha Palomino MD DIAGNOSTIC IMAGING O RDERABLES * PT-INR [facility] (08/05/2024 1:02 AM DIGITAL SALES MANAGER) Only the most recent of22 resultswithin the time period is included. PT 13.8 12.1 - 14.8 Seconds 08/05/2024 3:57 AM [facility] INR 1.1 See Comment 08/05/2024 3:57 AM [facility] Comment:The suggested therap eutic range for standard coumadin (warfarin) therapy is an INR of 2.0-3.0. For high-risk patients (Mechanical Mitral Valve Prosthesis, etc.), the suggested prophylactic therapeutic range is an INR of 2.5-3.5. Blood BLOOD SPECIMEN / Unknown Lab Venipuncture / Unknown 08/05/2024 1:02 AM DIGITAL SALES MANAGER 08/05/2024 3:37 AM CDT Lowell Cao DO LAB - COAGULATION OR DERABLES [facility] [address] [place] [address], [facility] [phone] * (ABNORMAL) CBC W/O DIFFERENTIAL (08/05/2024 1:02 AM DIGITAL SALES MANAGER) Only the most recent of45 resultswithin the time period is included. [facility] WBC 6.3 4.0 - 10.7 x10E9/L 08/05/2024 3:57 AM [facility] RBC Count 4.08(L) 4.30 - 5.80 x10E12/L 08/05/2024 3:57 AM [facility] Hemoglobin 12.8(L) 13.3 - 17.5 g/dL 08/05/2024 3:57 AM [facility] Hematocrit 38.5(L) 38.7 - 51.1 % 08/05/2024 3:57 AM [facility] MCV 94.4 80.0 - 98.0 fL 08/05/2024 3:57 AM [facility] MCH 31.4 26.7 - 33.6 pg 08/05/2024 3:57 AM [facility] MCHC 33.2 31.7 - 36.3 g/dL 08/05/2024 3:57 AM [facility] RDW-CV 13.2 11.3 - 14.8 % 08/05/2024 3:57 AM [facility] Platelet Count 187 150 - 420 x10E9/L 08/05/2024 3:57 AM [facility] MPV 13.2(H) 7.8 - 11.4 fL 08/05/2024 3:57 AM [facility] Blood BLOOD SPECIMEN / Unknown Lab Venipuncture / Unknown 08/05/2024 1:02 AM DIGITAL SALES MANAGER 08/05/2024 3:37 AM CDT Marianne Frances MD LAB - HEMATOLOGY ORD ERABLES [facility] [address] [place] [address], [facility] [phone] * (ABNORMAL) RENAL FUNCTION PANEL (08/05/2024 1:02 AM DIGITAL SALES MANAGER) Only the most recent of31 resultswithin the time period is included. BUN 16 7 - 26 mg/dL 08/05/2024 4:02 AM [facility] Creatinine 0.63(L) 0.71 - 1.16 mg/dL 08/05/2024 4:02 AM [facility] Sodium 140 136 - 145 mmol/L 08/05/2024 4:02 AM [facility] Potassium 4.0 3.5 - 4.5 mmol/L 08/05/2024 4:02 AM [facility] Chloride 107 98 - 107 mmol/L 08/05/2024 4:02 AM [facility] CO2 24 22 - 29 mmol/L 08/05/2024 4:02 AM [facility] Glucose 79 70 - 99 mg/dL 08/05/2024 4:02 AM [facility] Albumin 3.3(L) 3.4 - 5.0 g/dL 08/05/2024 4:02 AM [facility] Calcium 8.9 8.4 - 10.2 mg/dL 08/05/2024 4:02 AM [facility] Phosphorus 3.6 2.8 - 5.1 mg/dL 08/05/2024 4:02 AM [facility] Anion Gap 9 6 - 16 08/05/2024 4:02 AM [facility] BUN/Creatinine Ratio 25(H) 7 - 23 08/05/2024 4:02 AM [facility] Osmolality Calculated 290 275 - 295 mOsm/kg 08/05/2024 4:02 AM [facility] eGFR by CKD-EPI >90 >=90 mL/min/1.7 3 m2 08/05/2024 4:02 AM [facility] Blood BLOOD SPECIMEN / Unknown Lab Venipuncture / Unknown 08/05/2024 1:02 AM DIGITAL SALES MANAGER 08/05/2024 3:37 AM CDT Lowell Cao LAB - CHEMISTRY MARSHAL MEDEROS [facility] [address] [place] [address], [facility] [phone] * MAGNESIUM BLOOD (08/05/2024 1:02 AM DIGITAL SALES MANAGER) Only the most recent of198 resultswithin the time period is included. Magnesium 1.9 1.6 - 2.6 mg/dL 08/05/2024 4:02 AM CDT [facility] Blood BLOOD SPECIMEN / Unknown Lab Venipuncture / Unknown 08/05/2024 1:02 AM DIGITAL SALES MANAGER 08/05/2024 3:37 AM CDT Lowell Cao LAB - CHEMISTRY MARSHAL MEDEROS [facility] [address] [place] [address], [facility] [phone] * PSA FREE + TOTAL PANEL (08/04/2024 12:12 PM DIGITAL SALES MANAGER) PSA Total 1.7 0.0 - 4.0 ng/mL 08/04/2024 1:33 PM [facility] PSA Free 0.21 0.00 - 0.50 ng/mL 08/04/2024 1:33 PM [facility] PSA % Free 12 See Comment % 08/04/2024 1:33 PM [facility] Comment: [facility] uses the [employer] method for Total and Free PSA measurements. Measurements obtained with different assay methods should not be used interchangeably. Patients with normal Digital Rectal Exam (JAZMINE) results and Total PSA results of 4.0 - 10.0 ng/mL represent a diagnostic cooper zone. The decision of whether or not to perform a biopsy should not be based on the value of Free and/or Total PSA alone. Distribution of IP ATTORNEY % Free PSA Values for specimens with IP ATTORNEY Total PSA values between 4.0 and 10.0 ng/mL: % Free PSA Ranges <10.0 10.0-15.0 15.0-20.0 20.0-26.0 >26.0 Number of ----- --------- --------- --------- ----- Subjects Biopsy --------- ------ Negative 307 9.4 22.5 25.4 24.8 17.9 Positive 123 27.6 30.9 17.9 15.4 8.1 PSA % Free 08/04/2024 1:33 PM DIGITAL SALES MANAGER [facility] Blood BLOOD SPECIMEN / Unknown Lab Venipuncture / Unknown 08/04/2024 12:12 PM DIGITAL SALES MANAGER 08/04/2024 12:42 PM DIGITAL SALES MANAGER Marianne Daniels MD LAB - CHEMISTRY ORDE GATITO [facility] Organization Address City/State/ZIP Co de Phone Number [facility] [address] [address] [phone] * (ABNORMAL) CULTURE URINE (08/03/2024 8:53 AM DIGITAL SALES MANAGER) Only the most recent of8 resultswithin the time period is included. Culture Urine 50,000-100,000 CFU/mL Pseudomonas aeruginosa(A) JELLY 08/07/2024 6:04 AM [facility] Comment:This is an appended report. These results have been appended to a previously final verified report. Culture Urine 50,000-100,000 CFU/mL Corynebacterium striatum(A) JELLY 08/07/2024 6:04 AM [facility] Comment:This is an appended report. These results have been appended to a previously final verified report. Culture Urine 50,000-100,000 CFU/mL Providencia stuartii(A) JELLY 08/07/2024 6:04 AM [facility] Urine URINE SPECIMEN OBTAINED BY CLEAN CATCH PROCEDURE / Unknown Collection / Unknown 08/03/2024 8:53 AM DIGITAL SALES MANAGER 08/03/2024 8:56 AM DIGITAL SALES MANAGER Narrative Organism Antibiotic Method Susceptibility Pseudomonas aeruginosa [...] Daniels MD LAB - MICROBIOLOGY O RDERABLES [facility] [address] [place] [address], [facility] [phone] * HEMOGLOBIN A1C (08/03/2024 5:18 AM DIGITAL SALES MANAGER) Only the most recent of6 resultswithin the time period is included. [facility] Hemoglobin A1c 5.3 <=5.6 % 08/03/2024 8:24 AM [facility] Estimated Average Glucose 105 mg/dL 08/03/2024 8:24 AM [facility] Comment: HbA1c Interpretation: Normal : < 5.7% Pre-diabetes: 5.7-6.4% Diabetes: Equal to or greater than 6.5% Test results diagnostic of diabetes should be repeated for confirmation. Treatment target values recommended by ADA and other clinical organizations should be used to evaluate metabolic control in patients. Reference: [place] [employer], Standards of Care in Diabetes -2020 In patients 70 years and older consider HbA1c target range of 7.0-7.5% (Reference: Lukas Matamoros et al. JAMDA. 2012) The Sebia assay for the measurement of HbA1c is a National Glycohemoglobin Standardization Program (NGSP) certified method. Blood BLOOD SPECIMEN / Unknown Venipuncture / Unknown 08/03/2024 5:18 AM DIGITAL SALES MANAGER 08/03/2024 5:24 AM DIGITAL SALES MANAGER Lowell Cao DO LAB - CHEMISTRY MARSHAL MEDEROS [facility] [address] [place] [address], [facility] [facility] [phone] * TYPE + SCREEN PANEL (08/02/2024 9:53 PM DIGITAL SALES MANAGER) Only the most recent of8 resultswithin the time period is included. Antibody Screen NEG 10:41 PM DIGITAL SALES MANAGER [facility] BLOOD BANK LAB ABO Rh O POS 08/02/2024 10:41 PM DIGITAL SALES MANAGER [facility] B[facility]OD [facility] LAB Blood Bank BLOOD SPECIMEN / Unknown Venipuncture / Unknown 08/02/2024 9:53 PM DIGITAL SALES MANAGER 08/02/2024 10:05 PM DIGITAL SALES MANAGER Elmo Johnson MD LAB - BLOOD BANK ORD ERABLES Performing Organization Address City/[facility]/ZIP Co de Phone Number [facility]OD [facility] [address] [place] [address], [place] [phone] * CT Chest Abdomen Pelvis W Cont (08/02/2024 9:42 PM DIGITAL SALES MANAGER) Only the most recent of6 resultswithin the time period is included. Anatomical Region Laterality Modality Chest, Abdomen, Pelvis Computed Tomography 08/02/2024 9:56 PM DIGITAL SALES MANAGER Impressions 08/02/2024 11:19 PM DIGITAL SALES MANAGER Impression: 1.Trace left-sided pleural effusion, bilateral dependent [...] > Dictated by Justin Burrell MD (radiology director). I, Bebo Kuo MD have personally reviewed and interpreted this examination/study. > Interpreting Provider: Bebo Kuo MD on 08/02/2024 11:19 PM Narrative 08/02/2024 11:19 PM DIGITAL SALES MANAGER PROCEDURE: CT CHEST ABDOMEN PELVIS W CONT, DATE/TIME OF EXAM: 08/02/2024 9:43 PM, LOCATION [facility] INDICATION: R11.0: Nausea without vomiting ADDITIONAL CLINICAL [...] DATE/TIME OF EXAM: 08/02/2024 9:43 PM, LOCATION [facility] INDICATION: R11.0: Nausea without vomiting ADDITIONAL CLINICAL [...] > Dictated by Justin Burrell MD (radiology director). I, Bebo Kuo MD have personally reviewed and interpreted this examination/study. > Interpreting Provider: Bebo Kuo MD on 511:19 PM Elmo [address] MD CT ORDERABLES * XR CHEST 1VW PORTABLE (08/02/2024 5:15 PM DIGITAL SALES MANAGER) Only the most recent of48 resultswithin the time period is included. Anatomical Region Laterality Modality Chest Digital Radiogra phy 08/02/2024 5:27 PM DIGITAL SALES MANAGER Narrative 08/03/2024 9:31 AM DIGITAL SALES MANAGER PROCEDURE: XR CHEST 1VW PORTABLE, DATE/TIME OF EXAM: 08/02/2024 5:15 PM, LOCATION [facility] INDICATION: R11.0: Nausea without vomiting ADDITIONAL CLINICAL [...] > Dictated by Meeta Leblanc MD (radiology director) IRamon MD have personally reviewed and interpreted this examination/study. > Interpreting Provider: Ramon Ross MD on 08/03/2024 9:31 AM Procedure Note Ramon Ross MD - 08/03/2024 PROCEDURE: XR CHEST 1VW PORTABLE, DATE/TIME OF EXAM: 08/02/2024 5:15 PM, LOCATION [facility] INDICATION: R11.0: Nausea without vomiting ADDITIONAL CLINICAL [...] > Dictated by Meeta Leblanc MD (radiology director) I, Ramon Ross MD have personally reviewed and interpreted this examination/study. > Interpreting Provider: Ramon Ross MD on 08/03/2024 9:31 AM Elmo Johnson MD DIAGNOSTIC IMAGING O RDERABLES * (ABNORMAL) URINALYSIS REFLEX TO MICROSCOPIC NO CULTURE (08/02/2024 5:08 PM DIGITAL SALES MANAGER) Only the most recent of14 resultswithin the time period is included. Color UA Yellow Yellow, Straw 08/02/2024 5:46 PM [facility] Clarity UA Turbid(A) Clear 08/02/2024 5:46 PM [facility] Glucose UA Normal Normal 08/02/2024 5:46 PM [facility] Bilirubin UA Negative Negative 08/02/2024 5:46 PM [facility] Ketone UA Negative Negative 08/02/2024 5:46 PM [facility] Specific [place] UA 1.015 1.005 - 1.030 08/02/2024 5:46 PM [facility] Blood UA Negative Negative 08/02/2024 5:46 PM [facility] pH UA 7.0 5.0 - 9.0 pH 08/02/2024 5:46 PM [facility] Protein UA Trace(A) Negative 08/02/2024 5:46 PM [facility] Urobilinogen UA 3.0(A) Normal mg/dL 08/02/2024 5:46 PM [facility] Nitrite UA Positive(A) Negative 08/02/2024 5:46 PM [facility] Leukocyte UA 500 NOEL/uL(A) Negative 08/02/2024 5:46 PM [facility] RBC UA 11-20(A) 0 - 5 # /hpf 08/02/2024 5:46 PM [facility] WBC UA >100(A) 0 - 5 # /hpf 08/02/2024 5:46 PM [facility] Bacteria UA 1+(A) None Seen 08/02/2024 5:46 PM [facility] Squamous Epithelial Cells None Seen 0 - 5 /hpf 08/02/2024 5:46 PM [facility] Urine URINE SPECIMEN OBTAINED BY SINGLE CATHETERIZATION OF URINARY BLADDER / Unknown Collection / Unknown 08/02/2024 5:08 PM DIGITAL SALES MANAGER 08/02/2024 5:11 PM DIGITAL SALES MANAGER Elmo Johnson MD LAB - URINALYSIS ORD ERABLES [facility] [address] [place] [address], [facility] [phone] * (ABNORMAL) CBC W AUTO DIFFERENTIAL (08/02/2024 5:08 PM DIGITAL SALES MANAGER) Only the most recent of226 resultswithin the time period is included. WBC 8.4 4.0 - 10.7 x10E9/L 08/02/2024 5:22 PM [facility] RBC Count 4.27(L) 4.30 - 5.80 x10E12/L 08/02/2024 5:22 PM [facility] Hemoglobin 13.6 13.3 - 17.5 g/dL 08/02/2024 5:22 PM [facility] Hematocrit 41.1 38.7 - 51.1 % 08/02/2024 5:22 PM [facility] MCV 96.3 80.0 - 98.0 fL 08/02/2024 5:22 PM [facility] MCH 31.9 26.7 - 33.6 pg 08/02/2024 5:22 PM [facility] MCHC 33.1 31.7 - 36.3 g/dL 08/02/2024 5:22 PM [facility] RDW-CV 13.2 11.3 - 14.8 % 08/02/2024 5:22 PM [facility] Platelet Count 250 150 - 420 x10E9/L 08/02/2024 5:22 PM [facility] MPV 13.0(H) 7.8 - 11.4 fL 08/02/2024 5:22 PM [facility] Neutrophil % 68.1 41.0 - 74.0 % 08/02/2024 5:22 PM [facility] Lymphocyte % 22.2 17.0 - 47.0 % 08/02/2024 5:22 PM [facility] Monocyte % 6.8 3.0 - 11.0 % 08/02/2024 5:22 PM [facility] Eosinophil % 2.3 0.0 - 7.0 % 08/02/2024 5:22 PM [facility] Basophil % 0.4 0.0 - 1.6 % 08/02/2024 5:22 PM [facility] Immature Granulocytes % 0.2 0.0 - 1.0 % 08/02/2024 5:22 PM [facility] Neutrophil Absolute 5.70 1.60 - 7.50 x10E9/L 08/02/2024 5:22 PM [facility] Lymphocyte Absolute 1.86 1.00 - 4.40 x10E9/L 08/02/2024 5:22 PM [facility] Monocyte Absolute 0.57 0.15 - 1.00 x10E9/L 08/02/2024 5:22 PM [facility] Eosinophil Absolute 0.19 0.00 - 0.60 x10E9/L 08/02/2024 5:22 PM [facility] Basophil Absolute 0.03 0.00 - 0.13 x10E9/L 08/02/2024 5:22 PM [facility] Blood BLOOD SPECIMEN / Unknown Venipuncture / Unknown 08/02/2024 5:08 PM DIGITAL SALES MANAGER 08/02/2024 5:14 PM [facility] Elmo Johnson MD LAB - HEMATOLOGY ORD ERABLES Performing Organization Address City/State/[facility] Co de Phone Number [facility] [address] [place] [address], [facility] [phone] * (ABNORMAL) COMPREHENSIVE METABOLIC PANEL (08/02/2024 5:08 PM [facility]) Only the most recent of89 resultswithin the time period is included. BUN 14 7 - 26 mg/dL 08/02/2024 5:44 PM [facility] Creatinine 0.57(L) 0.71 - 1.16 mg/dL 08/02/2024 5:44 PM [facility] Sodium 140 136 - 145 mmol/L 08/02/2024 5:44 PM [facility] Potassium 4.5 3.5 - 4.5 mmol/L 08/02/2024 5:44 PM [facility] Chloride 105 98 - 107 mmol/L 08/02/2024 5:44 PM [facility] CO2 25 22 - 29 mmol/L 08/02/2024 5:44 PM [facility] Glucose 102(H) 70 - 99 mg/dL 08/02/2024 5:44 PM [facility] Calcium 9.6 8.4 - 10.2 mg/dL 08/02/2024 5:44 PM [facility] Protein Total 7.6 6.0 - 8.3 g/dL 08/02/2024 5:44 PM [facility] Albumin 3.8 3.4 - 5.0 g/dL 08/02/2024 5:44 PM [facility] Bilirubin Total 0.4 0.2 - 1.2 mg/dL 08/02/2024 5:44 PM [facility] Alkaline Phosphatase 94 40 - 150 U/L 08/02/2024 5:44 PM [facility] ALT 14 5 - 55 U/L 08/02/2024 5:44 PM [facility] AST 25 5 - 34 U/L 08/02/2024 5:44 PM [facility] Anion Gap 10 6 - 16 08/02/2024 5:44 PM [facility] BUN/Creatinine Ratio 25(H) 7 - 23 08/02/2024 5:44 PM [facility] Osmolality Calculated 291 275 - 295 mOsm/kg 08/02/2024 5:44 PM [facility] Albumin/Globulin Ratio 1.0(L) 1.1 - 2.3 08/02/2024 5:44 PM [facility] eGFR by CKD-EPI >90 >=90 mL/min/1.7 3 m2 08/02/2024 5:44 PM [facility] Blood BLOOD SPECIMEN / Unknown Venipuncture / Unknown 08/02/2024 5:08 PM DIGITAL SALES MANAGER 08/02/2024 5:14 PM DIGITAL SALES MANAGER Elmo Johnson MD LAB - CHEMISTRY MARSHAL MEDEROS [address] [address], [facility] [phone] * LIPASE BLOOD (08/02/2024 5:08 PM DIGITAL SALES MANAGER) Only the most recent of8 resultswithin the time period is included. Pathologist [facility] Lipase 18 8 - 78 U/L 08/02/2024 5:44 PM DIGITAL SALES MANAGER [facility] Blood BLOOD SPECIMEN / Unknown Venipuncture / Unknown 08/02/2024 5:08 PM DIGITAL SALES MANAGER 08/02/2024 5:14 PM DIGITAL SALES MANAGER Narrative [facility] - 08/02/2024 5:44 PM DIGITAL SALES MANAGER Lipase results from the [employer] Alinity analyzer may not be comparable with other methodologies. Elmo Johnson MD LAB - CHEMISTRY MARSHAL MEDEROS Performing Organization Address [facility] [place]/[facility]/ZIP Co de Phone Number [address] [address], [facility] [phone] * TROPONIN-I HIGH SENSITIVE BASELINE + 1HR (07/27/2024 6:26 PM DIGITAL SALES MANAGER) Only the most recent of4 resultswithin the time period is included. [facility] Troponin I High Sensitive 5 <=35 ng/L 07/27/2024 7:09 PM DIGITAL SALES MANAGER [facility] Blood BLOOD SPECIMEN / Unknown Venipuncture / Unknown 07/27/2024 6:26 PM DIGITAL SALES MANAGER 07/27/2024 6:37 PM DIGITAL SALES MANAGER Serjio Vilchis MD LAB - CHEMISTRY MARSHAL MEDEROS [address] [address], [facility] [phone] * EKG 12-LEAD (07/27/2024 5:34 PM DIGITAL SALES MANAGER) Only the most recent of34 resultswithin the time period is included. Pathologist [facility] Ventricular Rate [address] [facility] MUSE Atrial Rate [address] [facility] MUSE P-R Interval [address] [facility] MUSE QRS Duration ms 76 ms H MUSE Q-T Interval ms [address] [facility] MUSE QTC Calculation (Bezet) 430 ms SL MUSE Calculated P [place] 49 degrees SLH MUSE Calculated R [place] -25 degrees SLH MUSE Calculated T [place] 56 degrees SLH MUSE Interpretation EKG NORMAL SINUS RHYTHM SEPTAL INFARCT , AGE UNDETERMINED INFERIOR INFARCT , AGE UNDETERMINED ABNORMAL ECG WHEN COMPARED WITH ECG OF 19-FEB-2024 17:27, SEPTAL INFARCT IS NOW PRESENT INFERIOR INFARCT IS NOW PRESENT Confirmed by MD ABENA, CLEMENTE ([id number]) on 07/30/2024 2:44:[address] [facility] MUSE 07/27/2024 5:34 PM DIGITAL SALES MANAGER 07/30/2024 2:44 PM [facility] Serjio Vilchis MD ECG ORDERABLES [facility] MUSE * PATHOLOGY TISSUE (07/18/2024 4:27 PM DIGITAL SALES MANAGER) Only the most recent of4 resultswithin the time period is included. Case Report Surgical Pathology Report Case: [id number] Authorizing Provider: Clifton Trinh, Collected: 07/18/2024 04:27 PM Ordering Location: [facility] ENDOSCOPY Received: 07/19/2024 10:00 AM Pathologist: Mara Pascual MD Specimen: Gastric, Gastric Antrum Biopsies 07/20/2024 3:51 PM [facility] PATHOLOGY LAB Final Diagnosis Stomach, antrum, biopsy (A): - Superficial erosion in a background of reactive gastropathy, SEE COMMENT 07/20/2024 3:51 PM [facility] PATHOLOGY LAB Microscopic Description and Comment The [...] true H. pylori infection. 07/20/2024 3:51 PM [facility] PATHOLOGY LAB Clinical History The patient is a 64-year-old man with suspected upper gastrointestinal bleeding and melena. Operative procedure/findings: EGD - small esophageal diverticulum; benign-appearing intrinsic stenosis at the proximal and distal esophagus, dilated; broad irregular area of mucosa along the lesser curvature with superficial erosion, biopsied 07/20/2024 3:51 PM [facility] PATHOLOGY LAB Gross Description The requisition and specimen(s) are identified with the patient's name, Bi Tabor. Received in formalin, specimen A , are four marie-pink tissue fragments, 0.1-0.3 cm, 0.4 x 0.3 x 0.1 cm in aggregate , submitted in toto in cassette A1. The two smallest fragments are friable and may not survive processing. IKD 07/20/2024 3:51 PM [facility] PATHOLOG[facility] LAB Pathologist Location at [facility] 07/20/2024 3:51 PM [facility] PATHOLOGY LAB Disclaimer The performance characteristics of all immunohistochemical and indirect immunofluorescence stains (if any) cited in this report were determined by the Histopathology Laboratory of [facility]. Some of these tests were developed by [...] the attending (teaching) pathologist. 07/20/2024 3:51 PM [facility] PATHOLOGY LAB Embedded Images 07/20/2024 3:51 PM [facility] PATHOLOGY LAB Biopsy, NOS GASTRIC CONTENTS SPECIMEN / Unknown 07/18/2024 4:27 PM DIGITAL SALES MANAGER 07/19/2024 10:00 AM DIGITAL SALES MANAGER Comment:Pre-op diagnosis: Coffee ground emesis [K92.0] Clifton Alejandra MD LAB - PATHOL OGY/CYTOLOGY ORDERABLES [facility] [address] [place] [address], [facility] [phone] * EGD (07/18/2024 3:52 PM DIGITAL SALES MANAGER) Report Endoscopy POC Endoscopy Department Report __ [...] entire procedure. Procedure Code(s): --- Professional --- 08877, Esophagogastroduode noscopy, flexible, transoral; with biopsy, single or multiple Diagnosis Code(s): --- Professional --- K31.89, Other diseases of stomach and duodenum K92.1, Melena (includes Hematochezia) CPT copyright 2021 [employer]. All rights reserved. The codes documented in this report are preliminary and upon top steep tender review may be revised to meet current compliance requirements. Clifton Alejandra MD 07/18/2024 4:45:03 PM Note Initiated On: 07/18/2024 3:52 PM Number of Addenda: [address] [facility] PROVATION 07/18/2024 3:52 PM DIGITAL SALES MANAGER Aaron Delgado III, MD GI PROCEDURE OR DERABLES Performing Organization Address City/[facility]/ZIP Co de Phone Number [facility] * PHOSPHORUS BLOOD (07/18/2024 8:07 AM DIGITAL SALES MANAGER) Only the most recent of155 resultswithin the time period is included. Phosphorus 4.2 2.8 - 5.1 mg/dL 07/18/2024 8:52 AM DIGITAL SALES MANAGER [facility] Blood BLOOD SPECIMEN / Unknown Lab Venipuncture / Unknown 07/18/2024 8:07 AM DIGITAL SALES MANAGER 07/18/2024 8:24 AM DIGITAL SALES MANAGER Marianne Daniels MD LAB - CHEMISTRY MARSHAL MEDEROS Performing Organization Address [facility] [place]/[facility]/ZIP Co de Phone Number [address] [address], [facility] [phone] * VALPROIC ACID LEVEL (07/18/2024 8:07 AM DIGITAL SALES MANAGER) Only the most recent of48 resultswithin the time period is included. Valproic Acid Total 74 50 - 100 ug/mL 07/18/2024 8:41 AM DIGITAL SALES MANAGER [facility] Blood BLOOD SPECIMEN / Unknown Lab Venipuncture / Unknown 07/18/2024 8:07 AM DIGITAL SALES MANAGER 07/18/2024 8:19 AM DIGITAL SALES MANAGER Marianne Daniels MD LAB - CHEMISTRY ORDByron MEDEROS [facility] [address] [place] [address], [facility] [phone] * CARDIAC EKG ORDER (07/17/2024 1:44 PM DIGITAL SALES MANAGER) Only the most recent of24 resultswithin the time period is included. Narrative 07/17/2024 1:44 PM DIGITAL SALES MANAGER Ordered by an unspecified provider. Scanned Document CARDIAC SERVICES ORD ERABLES * (ABNORMAL) URINE MICROSCOPIC ONLY REFLEX TO CULTURE (07/17/2024 9:58 AM DIGITAL SALES MANAGER) Only the most recent of2 resultswithin the time period is included. Reflex Status Culture to follow 07/17/2024 10:42 AM [facility] WBC UA 21-50(A) None Seen, 0-5 /HPF 07/17/2024 10:42 AM [facility] Bacteria UA 1+(A) None /HPF 07/17/2024 10:42 AM [facility] Squamous Epithelial Cells UA None Seen None Seen, 0-2, 3-5 /HPF 07/17/2024 10:42 AM [facility] Urine URINE SPECIMEN OBTAINED BY CLEAN CATCH PROCEDURE / Unknown Collection / Unknown 07/17/2024 9:58 AM DIGITAL SALES MANAGER 07/17/2024 10:02 AM [facility] - 07/17/2024 10:42 AM DIGITAL SALES MANAGER Quan Gan MD LAB - URINALYSIS ORD ERABLES Performing Organization Address [facility] [place]/[facility]/ZIP Co de Phone Number [facility] [address] [place] [address], [facility] [phone] * (ABNORMAL) URINALYSIS REFLEX MICROSCOPIC REFLEX CULTURE (07/17/2024 9:58 AM DIGITAL SALES MANAGER) Only the most recent of8 resultswithin the time period is included. Color UA Yellow Straw, Yellow 07/17/2024 10:36 AM [facility] Clarity UA Slt Cloudy(A) Clear 07/17/2024 10:36 AM [facility] Specific [place] UA 1.027 1.005 - 1.030 07/17/2024 10:36 AM [facility] pH UA 8.0 5.0 - 8.0 pH 07/17/2024 10:36 AM [facility] Protein UA 1+(A) Negative 07/17/2024 10:36 AM [facility] Glucose UA Negative Negative 07/17/2024 10:36 AM [facility] Ketone UA Negative Negative 07/17/2024 10:36 AM [facility] Bilirubin UA Negative Negative 07/17/2024 10:36 AM [facility] Blood UA Negative Negative 07/17/2024 10:36 AM [facility] Nitrite UA Positive(A) Negative 07/17/2024 10:36 AM [facility] Leukocyte Esterase 1+(A) Negative 07/17/2024 10:36 AM [facility] Urobilinogen UA 4.0(A) Negative mg/dL 07/17/2024 10:36 AM [facility] Urine URINE SPECIMEN OBTAINED BY CLEAN CATCH PROCEDURE / Unknown Collection / Unknown 07/17/2024 9:58 AM DIGITAL SALES MANAGER 07/17/2024 10:02 AM DIGITAL SALES MANAGER Narrative [facility] - 07/17/2024 10:36 AM DIGITAL SALES MANAGER Quan Gan MD LAB - URINALYSIS ORD ERABLES [address] [address], [facility] [phone] * TROPONIN-I HIGH SENSITIVE REFLEX 1HOUR (07/17/2024 12:03 AM DIGITAL SALES MANAGER) Only the most recent of3 resultswithin the time period is included. Troponin I High Sensitive 7 <=35 ng/L 07/17/2024 12:48 AM [facility] Delta Troponin I HS 0 <6 ng/L 07/17/2024 12:48 AM [facility] Blood BLOOD SPECIMEN / Unknown Venipuncture / Unknown 07/17/2024 12:03 AM DIGITAL SALES MANAGER 07/17/2024 12:11 AM DIGITAL SALES MANAGER Quan Gan MD LAB - CHEMISTRY ORDE RABLES Performing Organization Address City/[facility]/ZIP Co de Phone Number [facility] [address] [place] [address], [facility] [phone] * SARS-COV-2 (COVID-19) FLU A/B RSV PCR RAPID (07/17/2024 12:03 AM DIGITAL SALES MANAGER) Only the most recent of4 resultswithin the time period is included. COVID-19 PCR Not detected Not detected 07/17/19 12:51 AM [facility] Influenza A PCR Not detected Not detected 07/17/2024 12:51 AM [facility] Influenza B PCR Not detected Not detected 07/17/2024 12:51 AM [facility] RSV PCR Not detected Not detected 07/17/2024 12:51 AM [facility] Microbiology SPECIMEN FROM NASOPHARYNGEAL STRUCTURE / Unknown Collection / Unknown 07/17/2024 12:03 AM DIGITAL SALES MANAGER 07/17/2024 12:11 AM DIGITAL SALES MANAGER Narrative [facility] - 07/17/2024 12:51 AM DIGITAL SALES MANAGER This nucleic acid amplification assay has been [...] Quan Gan MD LAB - MICROBIOLOGY O VANESSA Performing Organization Address [facility] [place]/[facility]/ZIP Co de Phone Number [facility] [address] [place] [address], [facility] [phone] * CT Abdomen Pelvis W Contrast (07/16/2024 11:41 PM DIGITAL SALES MANAGER) Anatomical Region Laterality Modality Abdomen, Pelvis Computed Tomogra phy 07/17/2024 12:0 2 AM DIGITAL SALES MANAGER Impressions 07/17/2024 8:29 AM DIGITAL SALES MANAGER Impression: 1.No acute process identified in the [...] obstruction. > Dictated by Ashu Welch MD (radiology director). I, Bebo Kuo MD have personally reviewed and interpreted this examination/study. > Interpreting Provider: Bebo Kuo MD on 07/17/2024 8:29 AM Narrative 07/17/2024 8:29 AM DIGITAL SALES MANAGER PROCEDURE: CT ABDOMEN PELVIS W CONTRAST, DATE/TIME OF EXAM: 07/16/2024 11:42 PM, LOCATION [facility] INDICATION: R11.2: Nausea and vomiting, unspecified vomiting [...] DATE/TIME OF EXAM: 07/16/2024 11:42 PM, LOCATION [facility] INDICATION: R11.2: Nausea and vomiting, unspecified vomiting [...] obstruction. > Dictated by Ashu Welch MD (radiology director). I, Bebo Kuo MD have personally reviewed and interpreted this examination/study. > Interpreting Provider: Bebo Kuo MD on :29 AM Quan Gan MD CT ORDERABLES * LACTIC ACID BLOOD REFLEX TO REPEAT (07/16/2024 10:44 PM DIGITAL SALES MANAGER) Only the most recent of17 resultswithin the time period is included. [facility] Lactic Acid-Stat 1.9 <=2.0 mmol/L 07/16/2024 11:19 PM DIGITAL SALES MANAGER [facility] Blood BLOOD SPECIMEN / Unknown Venipuncture / Unknown 07/16/2024 10:44 PM DIGITAL SALES MANAGER 07/16/2024 10:52 PM DIGITAL SALES MANAGER Quan Gan MD LAB - CHEMISTRY ORDByron MEDEROS Performing Organization Address City/[facility]/ZIP Co de Phone Number [address] [address], [facility] [phone] * CK BLOOD (07/16/2024 10:44 PM DIGITAL SALES MANAGER) Only the most recent of7 resultswithin the time period is included. [facility] CK Total 92 30 - 200 U/L 07/16/2024 11:23 PM [facility] Blood BLOOD SPECIMEN / Unknown Venipuncture / Unknown 07/16/2024 10:44 PM DIGITAL SALES MANAGER 07/16/2024 10:52 PM DIGITAL SALES MANAGER Quan Gan MD LAB - CHEMISTRY ORDByron MEDEROS Performing Organization Address City/[facility]/ZIP Co de Phone Number [address] [address], [place] [phone] * (ABNORMAL) BASIC METABOLIC PANEL (CALCIUM TOTAL) (06/08/2024 4:11 AM DIGITAL SALES MANAGER) Only the most recent of146 resultswithin the time period is included. [facility] BUN 14 7 - 26 mg/dL 06/08/2024 4:58 AM [facility] Creatinine 0.57(L) 0.71 - 1.16 mg/dL 06/08/2024 4:58 AM [facility] Sodium 140 136 - 145 mmol/L 06/08/2024 4:58 AM [facility] Potassium 3.9 3.5 - 4.5 mmol/L 06/08/2024 4:58 AM [facility] Chloride 108(H) 98 - 107 mmol/L 06/08/2024 4:58 AM [facility] CO2 27 22 - 29 mmol/L 06/08/2024 4:58 AM [facility] Glucose 105(H) 70 - 99 mg/dL 06/08/2024 4:58 AM [facility] Calcium 9.3 8.4 - 10.2 mg/dL 06/08/2024 4:58 AM [facility] Anion Gap 5(L) 6 - 16 06/08/2024 4:58 AM [facility] BUN/Creatinine Ratio 25(H) 7 - 23 06/08/2024 4:58 AM [facility] Osmolality Calculated 291 275 - 295 mOsm/kg 06/08/2024 4:58 AM [facility] eGFR by CKD-EPI >90 >=90 mL/min/1.7 3 m2 06/08/2024 4:58 AM [facility] Blood BLOOD SPECIMEN / Unknown Venipuncture / Unknown 06/08/2024 4:11 AM [employer] 06/08/2024 4:18 AM [facility] - CHEMISTRY ORDERABLES [facility] [address] [place] [address], [facility] [phone] * (ABNORMAL) LIPID PROFILE (06/08/2024 4:11 AM [facility]) Only the most recent of2 resultswithin the time period is included. Cholesterol Total 136 <200 mg/dL 06/08/2024 4:49 AM [facility] HDL 35(L) >40 mg/dL 06/08/2024 4:49 AM [facility] Comment: ATP III Classification of HDL Cholesterol: <40 mg/dL: Considered a major risk factor. >60 mg/dL: Considered a negative risk factor. LDL Calculated 88 <100 mg/dL 06/08/2024 4:49 AM [facility] Comment: ATP III Classification of LDL Cholesterol: <100 mg/dL: Optimal 100 - 129 mg/dL: Near Optimal/Above Optimal 130 - 159 mg/dL: Borderline High 160 - 189 mg/dL: High >190 mg/dL: Very High Triglycerides 65 <150 mg/dL 06/08/2024 4:49 AM [employer] [facility] Comment: ATP III Classification of Triglycerides: <150 mg/dL: Normal 150 - 199 mg/dL: Borderline High 200 - 400 mg/dL: High >500 mg/dL: Very High Blood BLOOD SPECIMEN / Unknown Venipuncture / Unknown 06/08/2024 4:11 AM DIGITAL SALES MANAGER 06/08/2024 4:18 AM DIGITAL SALES MANAGER Lilliam Isaacs RECORDER HELPER SEISMOGRAPH-UTILIZATION MANAGEMENT UM NURSE LAB - CHEMISTRY ORDERABLES [facility] [address] [address], [facility] [phone] * CT CERVICAL SPINE WO CONTRAST (04/30/2024 11:05 PM DIGITAL SALES MANAGER) Only the most recent of6 resultswithin the time period is included. Anatomical Region Laterality Modality Spine Computed Tomogra phy 04/30/2024 11:1 6 PM DIGITAL SALES MANAGER Impressions 04/30/2024 11:34 PM DIGITAL SALES MANAGER IMPRESSION: 1. No acute intracranial hemorrhage or [...] 04/30/2024 11:34 PM Narrative 04/30/2024 11:34 PM DIGITAL SALES MANAGER PROCEDURE: CT HEAD WO CONTRAST, CT CERVICAL [...] CT HEAD WO CONTRAST (04/30/2024 11:05 PM DIGITAL SALES MANAGER) Only the most recent of22 resultswithin the time period is included. Anatomical Region Laterality Modality Head Computed Tomogra phy 04/30/2024 11:1 6 PM DIGITAL SALES MANAGER Impressions 04/30/2024 11:34 PM DIGITAL SALES MANAGER IMPRESSION: 1. No acute intracranial hemorrhage or [...] 04/30/2024 11:34 PM Narrative 04/30/2024 11:34 PM DIGITAL SALES MANAGER PROCEDURE: CT HEAD WO CONTRAST, CT CERVICAL [...] Elmo Medeiros MD CT ORDERABLES * XR Abdomen Kub (04/21/2024 5:41 PM DIGITAL SALES MANAGER) Only the most recent of4 resultswithin the time period is included. Anatomical Region Laterality Modality Abdomen Digital Radiogra phy 04/21/2024 5:50 PM DIGITAL SALES MANAGER Impressions 04/21/2024 6:02 PM DIGITAL SALES MANAGER IMPRESSION: 1.Nonobstructive bowel gas pattern. 2.G-tube in place. No extraluminal extravasation of contrast Report dictated by Virgil Clark MD I, Nj Escobar MD have personally reviewed and interpreted this examination/study. > Interpreting Provider: Nj Escobar MD on 04/21/2024 6:02 PM Narrative 04/21/2024 6:02 PM DIGITAL SALES MANAGER PROCEDURE: XR ABDOMEN KUB, DATE/TIME OF EXAM: 04/21/2024 5:41 PM, LOCATION [facility] INDICATION: Z43.1: Attention to G-tube (HCC) [...] DATE/TIME OF EXAM: 04/21/2024 5:41 PM, LOCATION [facility] INDICATION: Z43.1: Attention to G-tube (HCC) [...] MD DIAGNOSTIC IMAG ING ORDERABLES * (ABNORMAL) LACTIC ACID BLOOD (02/19/2024 2:00 AM CDT) Only the most recent of11 resultswithin the time period is included. Lactic Acid-Stat 2.5(H) <=2.0 mmol/L 02/19/2024 2:[address] [facility] Blood BLOOD SPECIMEN / Unknown Lab Venipuncture / Unknown 02/19/2024 2:00 AM CDT 02/19/2024 2:20 AM CDT Brian Lawrence MD LAB - CHEMISTRY MARSHAL MEDEROS [facility] [address] [place] [address], [facility] [phone] * (ABNORMAL) LACOSAMIDE (02/18/2024 3:41 AM CDT) Only the most recent of13 resultswithin the time period is included. Lacosamide 14.3(H) 1.0 - 10.0 ug/mL 02/21/2024 6:09 PM CDT [facility] ([facility]) Comment: INTERPRETIVE INFORMATION: Lacosamide, Serum or [...] developed and its performance characteristics determined by [facility]. It has not been cleared or approved by the [place] Food and Drug Administration. This test was performed in a CLIA-certified laboratory and is intended for clinical purposes. Performed By: [facility] [address] [place] [address] Typecasting Machine Operator: Power Milian MD, PhD CLIA Number: [id number] Blood BLOOD SPECIMEN / Unknown Lab Venipuncture / Unknown 02/18/2024 3:41 AM CDT 02/18/2024 3:58 AM CDT Brian Lawrence MD LAB - CHEMISTRY MARSHAL MEDEROS [facility]) [address] [place] [address] * (ABNORMAL) LEVETIRACETAM LEVEL (02/18/2024 3:41 AM CDT) Only the most recent of31 resultswithin the time period is included. Levetiracetam 75(H) 10 - 40 ug/mL 02/20/2024 2:43 AM CDT [facility] [employer] ([facility]) Comment: INTERPRETIVE INFORMATION: Keppra (Levetiracetam) Therapeutic Range: 10-40 ug/mL Toxic: Not well Established Pharmacokinetics of levetiracetam are affected by renal function. Adverse effects may include somnolence, weakness, headache and vomiting. This levetiracetam (Keppra) immunoassay uses the [facility] reagents, which has known cross-reactivity with the drug brivaracetam (Briviact) and may report inaccurate results. Patients transitioning from levetiracetam to brivaracetam or those who are using both medications should not monitor drug concentrations with the [employer] assay. These patients should be monitored using a validated chromatographic methodology that distinguishes between drugs to determine drug concentrations. Performed By: [facility] [address] [place] [address] Typecasting Machine Operator: Power Milian MD, PhD CLIA Number: [id number] Blood BLOOD SPECIMEN / Unknown Lab Venipuncture / Unknown 02/18/2024 3:41 AM CDT 02/18/2024 3:58 AM CDT Brian Lawrence MD LAB - THERAPEUTIC DR DIAZ MONITORING ORDERABLES [facility]) [address] [place] [address], [facility] * XR NECK SOFT TISSUE (11/18/2023 2:27 AM CDT) Anatomical Region Laterality Modality Head Radiographic Cynthia ging 11/18/2023 4:26 AM CDT Impressions 11/18/2023 8:13 AM CDT IMPRESSION: Patent airway without prevertebral soft tissue swelling or definite epiglottic enlargement. No definite tracheostomy tube displacement identified.. Report dictated by Herminio Ivy MD (radiology director). I, Edilberto Lynn MD have personally reviewed and interpreted this examination/study. > Interpreting Provider: Edilberto Lynn MD on 11/18/2023 8:13 AM Narrative 11/18/2023 8:13 AM CDT PROCEDURE: XR NECK SOFT TISSUE, DATE/TIME OF EXAM: 11/18/2023 2:27 AM, LOCATION [facility] INDICATION: J95.00: Tracheostomy complication, unspecified complication type [...] DATE/TIME OF EXAM: 11/18/2023 2:27 AM, LOCATION [facility] INDICATION: J95.00: Tracheostomy complication, unspecified complication type [...] Report dictated by Herminio Ivy MD (radiology director). I, Edilberto Lynn MD have personally reviewed and interpreted this examination/study. > Interpreting Provider: Edilberto Lynn MD on 11/18/2023 8:13 AM Yash Webber PA-C DIAGNOSTIC IMAGING ORDERABLES * VAS LEFT VENOUS DUPLEX UE (09/14/2023 11:25 AM CDT) Anatomical Region Laterality Modality Upper Extremity Intravascular Ul trasound 09/14/2023 10:2 3 AM CDT Narrative Procedure Note Kaylee Wills MD - 09/14/2023 Riky rBewer MD VASCULAR LAB ORDERAB LES * PTT [facility] (09/14/2023 6:18 AM CDT) Only the most recent of5 resultswithin the time period is included. APTT 31.6 23.0 - 38.4 Seconds 09/14/2023 6:48 AM CDT [facility] Comment:Suggested therapeuti c range for full dose I.V. unfractionated heparin therapy for venous thromboembolism is 71 to 109 seconds. Blood BLOOD SPECIMEN / Unknown Venipuncture / Unknown 09/14/2023 6:18 AM CDT 09/14/2023 6:24 AM CDT Walt Linder MD LAB - COAGULATION OR DERABLES [facility] [address] [place] [address], [facility] [phone] * IR PERC G TO GJ TUBE EXCHANGE (09/09/2023 4:20 PM CDT) Only the most recent of3 resultswithin the time period is included. Anatomical Region Laterality Modality Abdomen X-Ray Angiograph y 09/15/2023 3:57 PM CDT Impressions 09/15/2023 4:03 PM CDT Impression: Successful conversion of the existing makeshift 18 Salvadorean JELLY Alanis gastrostomy catheter for a new 18-Salvadorean x 45 cm balloon-retention gastrojejunostomy catheter under [...] he would need to go to [facility]. Combiner: Dr. Luis Cullen, attending physician. Anesthesia: None Procedure: Exchange of the existing 18 Salvadorean JELLY gastrostomy catheter for a new 18 Salvadorean by 45 cm balloon-retention gastrojejunostomy catheter under fluoroscopic guidance. Fluoroscopic time: 2.2 minutes (10 mg) Contrast: 10 mL of Isovue-300 Procedure in detail: The procedure, risks, and possible complications were explained to the proxy in detail, and informed consent was obtained. The patient was placed supine on the procedure table. A armature winder automotive film of abdomen was obtained, which showed unremarkable abdomen. Contrast was hand injected through the existing gastrostomy catheter and showed opacification of the gastric lumen. A 0.035 inch Glidewire was advanced into the stomach through the existing catheter which was subsequently removed over the wire. Using a 4 Salvadorean Kumpe catheter, the Glidewire was advanced into the jejunum under fluoroscopic guidance. The Glidewire was exchanged for a stiffer wire. A new 18 Salvadorean by 45 cm gastrojejunostomy catheter was then [...] he would need to go to [facility]. Combiner: Dr. Luis Cullen, attending physician. Anesthesia: None Procedure: Exchange of the existing 18 Salvadorean JELLY gastrostomy catheterfor a new 18 Salvadorean by 45 cm balloon-retention gastrojejunostomy catheterunder fluoroscopic guidance. Fluoroscopic time: 2.2 minutes (10 mg) Contrast: 10 mL of Isovue-300 Procedure in detail: The procedure, risks, and possible complications were explained to the proxy in detail, and informed consent was obtained. The patient wasplaced supine on the procedure table. A armature winder automotive film of abdomen was obtained,which showed unremarkable abdomen. Contrast was hand injected through the existing gastrostomy catheter and showed opacification of the gastric lumen. A 0.035 inch Glidewire was advanced into the stomach through the existing catheter which was subsequently removed over the wire. Using a 4 Salvadorean Kumpe catheter, the Glidewire was advanced into the jejunum under fluoroscopic guidance. The Glidewire was exchanged for a stiffer wire. A new 18 Salvadorean by 45 cm gastrojejunostomy catheter was then [...] the procedure well [facility]. There were no immediate complicationsassociated with the procedure. Impression: Successful conversion of the existing makeshift 18 FrenchMIC Alanis gastrostomy catheter for a new 18-Salvadorean x 45 cm balloon-retention gastrojejunostomy catheter under [...] UA Yellow Straw, Yellow 09/06/2023 11:52 PM [facility] Clarity UA Clear Clear 09/06/2023 11:52 PM [facility] Specific [place] UA 1.009 1.005 - 1.030 09/06/2023 11:52 PM [facility] pH UA 6.0 5.0 - 8.0 pH 09/06/2023 11:52 PM [facility] Protein UA Negative Negative 09/06/2023 11:52 PM [facility] Glucose UA Negative Negative 09/06/2023 11:52 PM [facility] Ketone UA 1+(A) Negative 09/06/2023 11:52 PM [facility] Bilirubin UA Negative Negative 09/06/2023 11:52 PM [facility] Blood UA Negative Negative 09/06/2023 11:52 PM [facility] Nitrite UA Negative Negative 09/06/2023 11:52 PM [facility] Leukocyte Esterase Negative Negative 09/06/2023 11:52 PM [facility] Urobilinogen UA 2.0(A) Negative mg/dL 09/06/2023 11:52 PM [facility] RBC UA 0-2 None Seen, 0-2, 3-5 /HPF 09/06/2023 11:52 PM CDT [facility] WBC UA 0-5 None Seen, 0-5 /HPF 09/06/2023 11:52 PM CDT [facility] Squamous Epithelial Cells UA 0-2 None Seen, 0-2, 3-5 /HPF 09/06/2023 11:52 PM CDT [facility] Urine URINE SPECIMEN OBTAINED BY SINGLE CATHETERIZATION OF URINARY BLADDER / Unknown Collection / Unknown 09/06/2023 11:41 PM CDT 09/06/2023 11:45 PM CDT Narrative [facility] - 09/06/2023 11:52 PM CDT Culture Not Indicated Quan Gan MD LAB - URINALYSIS ORD ERABLES [facility] [address] [place] [address], [facility] [phone] * ND SCOPE THRU TRACHEOSTOMY (08/29/2023 7:52 AM CDT) [...] included. Anatomical Region Laterality Modality Chest Radiographic Cynthia ging 08/26/2023 1:51 PM CDT Impressions 08/26/2023 8:24 PM CDT IMPRESSION: Fluoroscopy was provided for a procedure performed by Speech Therapy. Please see the Speech Therapy report for interpretation. > Dictated by Sierra Lyman M.D. - Diagnostic Tube Wrapper. John Thomason MD have personally reviewed and interpreted this examination/study. > Interpreting Provider: John Stubbs MD on 08/26/2023 8:24 PM Narrative 08/26/2023 8:24 PM CDT PROCEDURE: FL SWALLOWING FUNCTION STUDY, DATE/TIME OF EXAM: 08/26/2023 12:34 PM, LOCATION [facility] INDICATION: R13.12: Oropharyngeal dysphagia R13.10: Problems with swallowing and mastication ADDITIONAL CLINICAL INFORMATION: Ordering Provider Reason For Exam: Technologist Note: Additional: COMPARISON: None. FLUOROSCOPY TIME: 3.87 minutes; Number of images: [id number] Procedure Note John Stubbs MD - 08/26/2023 PROCEDURE: FL SWALLOWING FUNCTION STUDY, DATE/TIME OF EXAM: 08/26/2023 12:34 PM, LOCATION [facility] INDICATION: R13.12: Oropharyngeal dysphagia R13.10: Problems with swallowing and mastication ADDITIONAL CLINICAL INFORMATION: Ordering Provider Reason For Exam: Technologist Note: Additional: COMPARISON: None. FLUOROSCOPY TIME: 3.87 minutes; Number of images: [id number] IMPRESSION: Fluoroscopy was provided for a procedure performed by Speech Therapy. Please see the Speech Therapy report for interpretation. > Dictated by Sierra Lyman M.D. - Diagnostic Tube Wrapper. John Thomason MD have personally reviewed and interpreted this examination/study. > Interpreting Provider: John Stubbs MD on 08/26/2023 8:24 PM Alden Hurtado MD FLUOROSCOPY ORDERABL ES * (ABNORMAL) DIFFERENTIAL MANUAL (06/24/2023 11:46 AM DIGITAL SALES MANAGER) Only the most recent of5 resultswithin the time period is included. Neutrophil % 69 41 - 74 % 06/24/2023 12:55 PM [facility] Lymphocyte % 18 17 - 47 % 06/24/2023 12:55 PM [facility] Monocyte % 12(H) 3 - 11 % 06/24/2023 12:55 PM [facility] Eosinophil % 1 0 - 7 % 06/24/2023 12:55 PM [facility] Neutrophil Absolute 13.52(H) 1.60 - 7.50 x10E9/L 06/24/2023 12:55 PM [facility] Lymphocyte Absolute 3.53 1.00 - 4.40 x10E9/L 06/24/2023 12:55 PM [facility] Monocyte Absolute 2.35(H) 0.15 - 1.00 x10E9/L 06/24/2023 12:55 PM [facility] Eosinophil Absolute 0.20 0.00 - 0.60 x10E9/L 06/24/2023 12:55 PM [facility] RBC Morphology REVIEWED 06/24/2023 12:55 PM [facility] Polychromatic Cells MODERATE(A) (none) 06/24/2023 12:55 PM [facility] Schistocytes FEW(A) (none) 06/24/2023 12:55 PM [facility] Blood BLOOD SPECIMEN / Unknown Lab Venipuncture / Unknown 06/24/2023 11:46 AM DIGITAL SALES MANAGER 06/24/2023 11:56 AM [facility] Gaurav Nogueira MD LAB - HEMATOLOGY ORDERABLES [address] [address], [facility] [phone] * CLOBAZAM QUANT BLOOD (06/21/2023 5:57 AM DIGITAL SALES MANAGER) Only the most recent of5 resultswithin the time period is included. Clobazam 264 30 - 300 ng/mL 06/26/2023 2:42 PM DIGITAL SALES MANAGER [facility] ([facility]) Comment: INTERPRETIVE INFORMATION: Clobazam and Metabolite, [...] influenced by drug-drug interactions and by poor MAG9X28 metabolism. The metabolite, N-desmethylclobazam has about 20% activity of clobazam. Adverse effects may include constipation, somnolence, sedation and skin rash. The concomitant use of clobazam with other central nervous system (TABLE TENDER SLUDGE) depressants may increase the risk of somnolence and sedation. Test developed and characteristics determined by [facility]. See Compliance Statement B: [facility].[employer]/CS N-Desmethylclobazam 589 300 - 3000 ng/mL 06/26/2023 2:42 PM DIGITAL SALES MANAGER [facility] ([facility]) Comment: Performed By: [facility] [address] [place] [id number] Typecasting Machine Operator: Power Milian MD, PhD CLIA Number: [id number] Blood BLOOD SPECIMEN / Unknown Lab Venipuncture / Unknown 06/21/2023 5:57 AM DIGITAL SALES MANAGER 06/21/2023 6:17 AM DIGITAL SALES MANAGER Norma Briones MD LAB - CHEMI STRY ORDERABLES Performing Organization Address City/[facility]/ZIP Co de Phone Number [facility] [employer]) [address] [place] [id number] * VANCOMYCIN LEVEL TROUGH (06/16/2023 2:51 AM DIGITAL SALES MANAGER) Only the most recent of14 resultswithin the time period is included. Vancomycin Trough 17.7 10.0 - 20.0 ug/mL 06/16/2023 3:51 AM DIGITAL SALES MANAGER [facility] Blood BLOOD SPECIMEN / Unknown Venipuncture / Unknown 06/16/2023 2:51 AM DIGITAL SALES MANAGER 06/16/2023 3:00 AM DIGITAL SALES MANAGER Narrative [facility] - 06/16/2023 3:51 AM DIGITAL SALES MANAGER See institution protocol. Gaurav Nogueira MD LAB - CHEMISTRY ORDERABLES [address] [address], [place] [phone] * VANCOMYCIN LEVEL PEAK (06/15/2023 6:32 AM DIGITAL SALES MANAGER) Only the most recent of3 resultswithin the time period is included. Vancomycin Peak 36.7 25.0 - 40.0 ug/mL 06/15/2023 7:12 AM DIGITAL SALES MANAGER [facility] Blood BLOOD SPECIMEN / Unknown Lab Venipuncture / Unknown 06/15/2023 6:32 AM DIGITAL SALES MANAGER 06/15/2023 6:49 AM DIGITAL SALES MANAGER Narrative [facility] - 06/15/2023 7:12 AM DIGITAL SALES MANAGER See institution protocol. Data does not support the use of vancomycin peak concentration for efficacy. Gaurav Nogueira MD LAB - CHEMISTRY ORDERABLES Performing Organization Address City/[facility]/ZIP Co de Phone Number [facility] [address] [place] [address], [facility] [phone] * CULTURE BLOOD (06/13/2023 8:47 AM DIGITAL SALES MANAGER) Only the most recent of27 resultswithin the time period is included. [facility] Culture No growth day 5 JELLY 06/18/2023 10:30 AM DIGITAL SALES MANAGER [facility] Blood PERIPHERAL BLOOD / Unknown Lab Venipuncture / Unknown 06/13/2023 8:47 AM DIGITAL SALES MANAGER 06/13/2023 8:50 AM DIGITAL SALES MANAGER Gaurav Nogueira MD LAB - MICROBIOLO GY ORDERABLES Performing Organization Address City/[facility]/ZIP Co de Phone Number [facility] [address] [place] [address], [facility] [phone] * (ABNORMAL) BCID PANEL (06/11/2023 5:46 PM DIGITAL SALES MANAGER) Only the most recent of2 resultswithin the time period is included. Pathologist [facility] Staphylococcus species Detected (A) Not detected 06/13/2023 12:20 AM DIGITAL SALES MANAGER [facility] Comment:Staphylococcus speci es (not S. aureus, S. lugdunensis, or S. epidermidis). Blood PERIPHERAL BLOOD / Unknown Venipuncture / Unknown 06/11/2023 5:46 PM DIGITAL SALES MANAGER 06/11/2023 6:05 PM DIGITAL SALES MANAGER Narrative [facility] - 06/13/2023 12:20 AM DIGITAL SALES MANAGER Blood Culture ID Panel performed by [facility] in multiplex PCR. Test Panel includes: Antimicrobial Resistance Genes: Mec A/C and MREJ (methicillin-resistance gene-MRSA) and van A/B (vancomycin-resistance gene). Gram Positive Bacteria: Enterococcus faecalis, Enterococcus faecium, Staphylococcus (genus), Staphylococcus aureus, Staphylococcus epidermidis, Staphylococcus lugdunensis, Streptococcus (genus), Streptococcus agalactiae (Group B), Streptococcus pneumoniae, Streptococcus pyogenes (Group A). Gaurav Nogueira MD LAB - MICROBIOLO GY ORDERABLES Performing Organization Address City/[facility]/ZIP Co de Phone Number [facility] [address] [place] [address], [facility] [phone] * (ABNORMAL) MRSA DNA PCR (06/11/2023 2:42 PM DIGITAL SALES MANAGER) Only the most recent of6 resultswithin the time period is included. 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 Gaurav Nogueira MD LAB - MICROBIOLO GY ORDERABLES Performing Organization Address [facility] Co de Phone Number [facility] [address] [place] [address], [facility] [phone] * SUSCEPTIBILITY NOT OTHERWISE SPECIFIED (06/11/2023 2:19 PM DIGITAL SALES MANAGER) Pathologist [facility] Prelim Report SEE NOTE 06/19/2023 11:05 AM DIGITAL SALES MANAGER [employer] ([facility]) Comment: Specimen received and in progress. SMICCefiderocol 0.25 Suscept Performed By: [facility] [address] [place] [address] Typecasting Machine Operator: Power Milian MD, PhD CLIA Number: [id number] Final Report SEE NOTE 06/19/2023 11:05 AM DIGITAL SALES MANAGER [facility] [employer] ([facility]) Comment: Pseudomonas aeruginosa Organism identified by client SMICCefiderocol 0.25 Suscept Performed By: [facility] [address] [place] [address] Typecasting Machine Operator: Power Milian MD, PhD CLIA Number: [id number] Microbiology LOWER RESPIRATORY FLUID SPECIMEN / Unknown Collection / Unknown 06/11/2023 2:19 PM DIGITAL SALES MANAGER 06/11/2023 2:52 PM DIGITAL SALES MANAGER Gaurav Nogueira MD LAB - MICROBIOLO GY ORDERABLES [employer] ([facility]) [address] [place] [address], [facility] * (ABNORMAL) CULTURE SPUTUM+GRAM STAIN (06/11/2023 2:19 PM DIGITAL SALES MANAGER) Only the most recent of7 resultswithin the time period is included. Culture Moderate Pseudomonas aeruginosa (mucoid)(A) 06/20/2023 9:48 AM [facility] Comment:Isolate is multi franchesca g resistant organism (MDRO). Culture Moderate Staphylococcus aureus methicillin-resista nt (MRSA)(A) JELLY 06/20/2023 9:48 AM [facility] Comment:Staphylococcus aureu s methicillin-resistant (MRSA) detected by penicillin binding protein immunoassay. Contact precautions required. Conventional antibiotic susceptibility testing to follow. Culture Rare normal oropharyngeal heidi 06/20/2023 9:48 AM [facility] Gram Stain <10 per low power field Squamous epithelial cells 06/20/2023 9:48 AM [facility]CRO[facility] Gram Stain >= 25 per low power field Polymorphonuclear cells 06/20/2023 9:48 AM [facility]CRO[facility] Gram Stain Light Gram-positive cocci 06/20/2023 9:48 AM [facility]CRO[facility] Microbiology LOWER RESPIRATORY FLUID SPECIMEN / Unknown Collection / Unknown 06/11/2023 2:19 PM DIGITAL SALES MANAGER 06/11/2023 2:52 PM DIGITAL SALES MANAGER Narrative [facility] - 06/20/2023 9:48 AM DIGITAL SALES MANAGER This isolate is a multidrug resistant organism [...] Nogueira MD LAB - MICROBIOLO GY ORDERABLES [facility] [address] [place], [place] [address], [facility] [phone] * LACTIC ACID REPEAT REFLEX (06/09/2023 8:17 PM DIGITAL SALES MANAGER) Only the most recent of10 resultswithin the time period is included. Lactic Acid Repeat Reflex Order LACTIC ACID REPEAT HAS BEEN ORDERED 06/09/2023 10:30 PM DIGITAL SALES MANAGER [facility] Blood BLOOD SPECIMEN / Unknown Venipuncture / Unknown 06/09/2023 8:17 PM DIGITAL SALES MANAGER 06/09/2023 8:58 PM DIGITAL SALES MANAGER Leonardo Hanson MD LAB - CHEMISTRY MARSHAL MEDEROS [facility] [address] [place] [address], [facility] [phone] * SARS-COV-2 (COVID-19)+INFLU A+B PCR RAPID (06/09/2023 8:15 PM DIGITAL SALES MANAGER) Only the most recent of5 resultswithin the time period is included. COVID-19 PCR Not detected Not detected 06/09/19 9:19 PM DIGITAL SALES MANAGER [facility] Influenza A Rapid BILLY Not Detected Not Detected 06/09/2023 9:19 PM DIGITAL SALES MANAGER [facility] Influenza B BILLY Rapid Not Detected Not Detected 06/09/2023 9:19 PM DIGITAL SALES MANAGER [facility] Microbiology SPECIMEN FROM NASOPHARYNGEAL STRUCTURE / Unknown Collection / Unknown 06/09/2023 8:15 PM DIGITAL SALES MANAGER 06/09/2023 8:33 PM DIGITAL SALES MANAGER Narrative [facility] - 06/09/2023 9:19 PM DIGITAL SALES MANAGER Influenza assay performed by Nucle[employer]. [...] acid amplification assay performance was validated by [facility]. This test has been authorized by the [...] Hanson MD LAB - MICROBIOLOGY O RDERABLES [facility] [address] [place] [address], [facility] [phone] * (ABNORMAL) BLOOD GASES ART + COOX PANEL (06/09/2023 8:14 PM DIGITAL SALES MANAGER) Only the most recent of15 resultswithin the time period is included. pH Arterial 7.41 7.35 - 7.45 pH 06/09/2023 8:41 PM [facility] pO2 Arterial 82 80 - 100 mmHg 06/09/2023 8:41 PM [facility] pCO2 Arterial 40 35 - 45 mmHg 8:41 PM [facility] HCO3 Arterial 25.4 20.0 - 30.0 mmol/L 06/09/2023 8:41 PM [facility] BE Arterial 0.7 -2.0 - 2.0 mmol/L 06/09/2023 8:41 PM [facility] Oxyhemoglobin Arterial 95.1 % 06/09/2023 8:41 PM [facility] Dexoyhemoglobin (HHB) % 2.1 % 06/09/2023 8:41 PM [facility] Methemoglobin <0.8 0.0 - 2.0 % 06/09/2023 8:41 PM [facility] Carboxyhemoglobin 2.2(H) 0.0 - 2.0 % 2023 8:41 PM [facility] O2 Content Arterial 18.6 Interpret within clinical context ml/dL 06/09/2023 8:41 PM [facility] Hemoglobin by COOX 13.9 12.0 - 17.6 g/dL 06/09/2023 8:41 PM [facility] O2 Saturation Arterial 98 90 - 100 % 06/09/2023 8:41 PM [facility] FI O2 Arterial 35.0 % 06/09/2023 8:41 PM [facility] Blood, arterial ARTERIAL BLOOD SPECIMEN / Unknown Arterial Puncture / Unknown 06/09/2023 8:14 PM DIGITAL SALES MANAGER 06/09/2023 8:34 PM DIGITAL SALES MANAGER Narrative [facility] - 06/09/2023 8:41 PM DIGITAL SALES MANAGER Carboxyhemoglobin Normal Concentration: Non-smokers: 0-2%; Smokers: 0-9%; Toxic: >20% Leonardo Hanson MD LAB - BLOOD GASES OR DERABLES [facility] [address] [place] [address], [facility] [phone] * (ABNORMAL) BLOOD GASES ANA + COOX PANEL (06/09/2023 7:02 PM DIGITAL SALES MANAGER) Only the most recent of6 resultswithin the time period is included. pH Venous 7.27(L) 7.32 - 7.42 pH 06/09/2023 7:12 PM [facility] pO2 Venous 21(L) 35 - 40 mmHg 06/09/2023 7:12 PM [facility] pCO2 Venous 65(H) 40 - 50 mmHg 06/09/2023 7:12 PM [facility] HCO3 Venous 29.8 20 - 30 mmol/L 06/09/2023 7:12 PM [facility] Base Excess Venous 1.3 -2.0 - 2.0 mmol/L 06/09/2023 7:12 PM [facility] Oxyhemoglobin Venous 22.3 % 05/30 7:12 PM [facility] Deoxyhemoglobin (HHB) Venous % 77.1 % 06/09/2023 7:12 PM [facility] Methemoglobin <0.8 0.0 - 2.0 % 06/09/2023 7:12 PM [facility] Carboxyhemoglobin <0.4 0.0 - 2.0 % 2023 7:12 PM [facility] O2 Content Venous 4.2 Interpret within clinical context ml/dL 06/09/2023 7:12 PM [facility] Hemoglobin by COOX 13.2 12.0 - 17.6 g/dL 06/09/2023 7:12 PM [facility] O2 Saturation Venous 22(L) >=70 % 05/30 7:12 PM [facility] FI O2 Mixed Venous 100.0 % 2023 7:12 PM [facility] Blood BLOOD SPECIMEN / Unknown Venipuncture / Unknown 06/09/2023 7:02 PM DIGITAL SALES MANAGER 06/09/2023 7:08 PM DIGITAL SALES MANAGER Narrative [facility] - 06/09/2023 7:12 PM DIGITAL SALES MANAGER Carboxyhemoglobin Normal Concentration: Non-smokers: 0-2%; Smokers: 0-9%; Toxic: >20% Leonardo Hanson MD LAB - BLOOD GASES OR DERABLES Performing Organization Address City/[facility]/ZIP Co de Phone Number [address] [address], [facility] [phone] * TSH REFLEX FREE T4 (06/09/2023 1:14 PM DIGITAL SALES MANAGER) Only the most recent of5 resultswithin the time period is included. TSH 1.238 0.350 - 4.940 uIU/mL 06/09/2023 2:31 PM DIGITAL SALES MANAGER [facility] Blood BLOOD SPECIMEN / Unknown Venipuncture / Unknown 06/09/2023 1:14 PM DIGITAL SALES MANAGER 06/09/2023 1:41 PM DIGITAL SALES MANAGER Leonardo Hanson MD LAB - CHEMISTRY ORDE RABLES Performing Organization Address City/[facility]/ZIP Co de Phone Number [address] [address], [facility] [phone] * PROCALCITONIN LEVEL (02/28/2023 5:41 AM CDT) Only the most recent of10 resultswithin the time period is included. PROCALCITONIN <0.02 <=0.10 ng/mL 02/28/2023 8:42 AM CDT [facility] Blood BLOOD SPECIMEN / Unknown Lab Venipuncture / Unknown 02/28/2023 5:41 AM CDT 02/28/2023 6:51 AM CDT Narrative [facility] - 02/28/2023 8:42 AM CDT The [...] Change in Procalcitonin Calculator is available at [email or web address] If clinical picture has not improved and PCT remains high, reevaluate and consider treatment failure or other causes. Cami Worthington MD LAB - CHEMISTRY MARSHAL MEDEROS [address] [address], [place] [phone] * ALT (02/28/2023 5:41 AM CDT) ALT 7 5 - 55 U/L 02/28/2023 7:37 AM CDT [facility] Blood BLOOD SPECIMEN / Unknown Lab Venipuncture / Unknown 02/28/2023 5:41 AM CDT 02/28/2023 6:57 AM CDT Cami Worthington MD LAB - CHEMISTRY MARSHAL MEDEROS [address] [address], [place] [phone] * AST BLOOD (02/28/2023 5:41 AM CDT) AST 13 5 - 34 U/L 02/28/2023 7:37 AM CDT [facility] Blood BLOOD SPECIMEN / Unknown Lab Venipuncture / Unknown 02/28/2023 5:41 AM CDT 02/28/2023 6:57 AM CDT Cami Worthington MD LAB - CHEMISTRY MARSHAL MEDEROS [address] [address], [facility] [phone] * PROTEIN TOTAL BLOOD (02/28/2023 5:41 AM CDT) Protein Total 6.5 6.0 - 8.3 g/dL 02/28/2023 7:37 AM CDT [facility] Blood BLOOD SPECIMEN / Unknown Lab Venipuncture / Unknown 02/28/2023 5:41 AM CDT 02/28/2023 6:57 AM CDT Cami Worthington MD LAB - CHEMISTRY MARSHAL MEDEROS Performing Organization Address City/[facility]/ZIP Co de Phone Number [address] [address], [facility] [phone] * BILIRUBIN TOTAL+DIRECT BLOOD PANEL (02/28/2023 5:41 AM CDT) Bilirubin Total 0.2 0.2 - 1.2 mg/dL 06/2022 7:[address] [facility] Bilirubin Conjugated 0.1 0.1 - 0.5 mg/dL 02/28/2023 7:38 AM CDT [facility] Bilirubin Unconjugated 0.1 Unconjugated Bilirubin is a calculated value: Reference ranges have not been established. mg/dL 02/28/2023 7:38 AM CDT [facility] Blood BLOOD SPECIMEN / Unknown Lab Venipuncture / Unknown 02/28/2023 5:41 AM CDT 02/28/2023 6:57 AM CDT Cami Worthington MD LAB - CHEMISTRY MARSHAL MEDEROS [facility] [address] [place] [address], [place] [phone] * ALKALINE PHOSPHATASE BLOOD (02/28/2023 5:41 AM CDT) Alkaline Phosphatase 79 40 - 150 U/L 02/28/2023 7:37 AM CDT [facility] Blood BLOOD SPECIMEN / Unknown Lab Venipuncture / Unknown 02/28/2023 5:41 AM CDT 02/28/2023 6:57 AM CDT Cami Worthington MD LAB - CHEMISTRY MARSHAL MEDEROS Performing Organization Address [facility] [place]/[facility]/ZIP Co de Phone Number [address] [address], [place] [phone] * CT CHEST ABDOMEN PELVIS WO CONT [...] > Dictated by Nash Arreola MD (radiology director). I, Bebo Kuo MD have personally reviewed and interpreted this examination/study. > Interpreting Provider: Bebo Kuo MD on 02/23/2023 8:19 AM Narrative 02/23/2023 8:19 AM CDT PROCEDURE: CT CHEST ABDOMEN PELVIS WO CONT, DATE/TIME OF EXAM: 02/23/2023 5:59 AM, LOCATION [facility] INDICATION: K94.23: PEG tube malfunction (CMS/HCC) ADDITIONAL [...] CONT, DATE/TIME OF EXAM:02/23/2023 5:59 AM, LOCATION [facility] INDICATION: K94.23: PEG tube malfunction (CMS/HCC) ADDITIONAL [...] the patient's careprovider, Dr. Coombs by Dr. Nahs Arreola via telephone at 02/23/2023 6:30 AM with readback comprehension and verification. > Dictated by Nash Arreola MD (radiology director). I, Bebo Kuo MD have personally reviewed [...] Report dictated by Ashu Welch M.D. (radiology director) 02/23/2023 4:31 AM IRachel MD have personally reviewed and interpreted this examination/study. > Interpreting Provider: Rachel Phillips MD on 02/23/2023 9:26 AM Narrative 02/23/2023 9:26 AM CDT PROCEDURE: XR ABD OBSTR SERIES W CHEST 1VW, DATE/TIME OF EXAM: 02/23/2023 4:13 AM, LOCATION [facility] INDICATION: K94.23: PEG tube malfunction (CMS/HCC) ADDITIONAL [...] 1VW, DATE/TIME OF EXAM:02/23/2023 4:13 AM, LOCATION [facility] INDICATION: K94.23: PEG tube malfunction (CMS/HCC) ADDITIONAL [...] Report dictated by Ashu Welch M.D. (radiology director) 02/23/2023 4:31 AM IRachel MD have personally reviewed and interpreted this examination/study. > Interpreting Provider: Rachel Phillips MD on 02/23/2023 9:26 AM Kortney Vega MD DIAGNOSTIC IMAGING O RDERABLES * (ABNORMAL) TRIGLYCERIDES BLOOD (01/14/2023 9:35 AM CDT) Only the most recent of3 resultswithin the time period is included. Triglycerides 339(H) <150 mg/dL 01/14/2023 10:[address] [facility] Comment: ATP III Classification of Triglycerides: <150 mg/dL: Normal 150 - 199 mg/dL: Borderline High 200 - 400 mg/dL: High >500 mg/dL: Very High Blood BLOOD SPECIMEN / Unknown Venipuncture / Unknown 01/14/2023 9:35 AM CDT 01/14/2023 9:43 AM CDT Lisset Norris MD LAB - CHEMISTRY ORDE GATITO Performing Organization Address City/[facility] Co de Phone Number [address] [address], [facility] [phone] * CALCIUM IONIZED WHOLE BLOOD (01/14/2023 4:24 AM CDT) Only the most recent of17 resultswithin the time period is included. Calcium Ionized 1.32 mmol/L 01/14/2023 4:[address] [facility] pH 7.42 7.35 - 7.45 pH 01/14/2023 4:31 AM CDT [facility] Ionized Calcium pH Adjusted 1.33 1.19 - 1.34 mmol/L 01/14/2023 4:31 AM CDT [facility] Blood BLOOD SPECIMEN / Unknown Venipuncture / Unknown 01/14/2023 4:24 AM CDT 01/14/2023 4:29 AM CDT Ck Small MD LAB - CHEMISTRY ORDERABLES Performing Organization Address [facility] [place]/[facility] Co de Phone Number [address] [address], [facility] [phone] * FOLATE (01/02/2023 3:39 AM CDT) Only the most recent of3 resultswithin the time period is included. Folate 14.7 7.0 - 31.4 ng/mL 01/02/2023 4:38 AM CDT [facility] Blood BLOOD SPECIMEN / Unknown Venipuncture / Unknown 01/02/2023 3:39 AM CDT 01/02/2023 3:51 AM CDT Blair Cagle MD LAB - CHEMISTRY ORD ERABLES [facility] [address] [place] [address], [place] [phone] * (ABNORMAL) VITAMIN B12 (01/02/2023 3:39 AM CDT) Only the most recent of3 resultswithin the time period is included. Vitamin B12 1,814(H) 213 - 816 pg/mL 01/02/2023 4:38 AM CDT [facility] Blood BLOOD SPECIMEN / Unknown Venipuncture / Unknown 01/02/2023 3:39 AM CDT 01/02/2023 3:51 AM CDT Blair Cagle MD LAB - CHEMISTRY ORD ERABLES Performing Organization Address City/[facility]/ZIP Co de Phone Number [address] [address], [place] [phone] * IRON + TRANSFERRIN PANEL (01/02/2023 3:39 AM CDT) Iron 53 50 - 175 ug/dL 01/02/2023 4:[address] [facility] Transferrin 255 174 - 382 mg/dL 01/02/2023 4:53 AM CDT [facility] Transferrin Saturation % 17 16 - 50 % 01/02/2023 4:53 AM CDT [facility] TIBC Calculated 319 240 - 450 ug/dL 01/02/2023 4:53 AM CDT [facility] Blood BLOOD SPECIMEN / Unknown Venipuncture / Unknown 01/02/2023 3:39 AM CDT 01/02/2023 3:43 AM CDT Blair Cagle MD LAB - CHEMISTRY ORD ERABLES [facility] [address] [place] [address], [place] [phone] * FERRITIN (01/02/2023 3:39 AM CDT) Ferritin 55 22 - 275 ng/mL 01/02/2023 5:11 AM CDT [facility] Blood BLOOD SPECIMEN / Unknown Venipuncture / Unknown 01/02/2023 3:39 AM CDT 01/02/2023 3:43 AM CDT Blair Cagle MD LAB - CHEMISTRY ORD ERABLES Performing Organization Address [facility] [place]/[facility] Co de Phone Number [address] [address], [facility] [phone] * CORTISOL BLOOD AM (01/02/2023 3:39 AM CDT) Cortisol AM 7.8 3.7 - 19.4 ug/dL 01/02/2023 4:23 AM CDT [facility] Blood BLOOD SPECIMEN / Unknown Venipuncture / Unknown 01/02/2023 3:39 AM CDT 01/02/2023 3:51 AM CDT Narrative [facility] - 01/02/2023 4:23 AM CDT Normal cortisol levels are generally highest in the morning hours and lowest from late evening through the director of quantitative research hours (8 PM to 4 AM). The PM measurements of cortisol run approximately one-half to one-third of the AM values. Blair Cagle MD LAB - CHEMISTRY ORD ERABLES Performing Organization Address [facility] Co de Phone Number [address] [address], [facility] [phone] * AMMONIA (01/01/2023 12:46 AM CDT) Only the most recent of2 resultswithin the time period is included. Ammonia 31 <=72 umol/L 01/01/2023 1:28 AM CDT [facility] Blood BLOOD SPECIMEN / Unknown Venipuncture / Unknown 01/01/2023 12:46 AM CDT 01/01/2023 1:09 AM CDT Ck Small MD LAB - CHEMISTRY ORDERABLES Performing Organization Address City/[facility]/ZIP Co de Phone Number [address] [address], [place] [phone] * TROPONIN-I HIGH SENSITIVE (12/31/2022 8:53 PM CDT) Only the most recent of4 resultswithin the time period is included. [facility] Troponin I High Sensitive 4 <=35 ng/L 12/31/2022 9:36 PM CDT [facility] Blood BLOOD SPECIMEN / Unknown Venipuncture / Unknown 12/31/2022 8:53 PM CDT 12/31/2022 9:01 PM CDT Ck Small MD LAB - CHEMISTRY ORDERABLES Performing Organization Address City/[facility]/ZIP Co de Phone Number [address] [address], [facility] [phone] * (ABNORMAL) RBC MORPHOLOGY (12/16/2022 3:49 AM CDT) [facility] Platelet Estimate Decreased(A) Adequate 12/16/2022 5:20 AM CDT [facility] Anisocytosis Occasional(A ) None 12/16/2022 5:20 AM CDT [facility] Ovalocytes Occasional(A ) None 12/16/2022 5:20 AM CDT [facility] Cammal Cells 2+(A) None 12/16/2022 5:20 AM CDT [facility] Comment Platelet Platelet clumpled on the smear but appear decreased. 12/16/2022 5:20 AM CDT [facility] Blood BLOOD SPECIMEN / Unknown Lab Venipuncture / Unknown 12/16/2022 3:49 AM CDT 12/16/2022 4:04 AM CDT Neville Hewitt III, MD LAB - HEMATOLOGY ORDERABLES Performing Organization Address City/[facility]/ZIP Co de Phone Number [address] [address], [place] [phone] * GASTROSTOMY TUBE, CHANGE / REPOSITION (12/10/2022 1:11 PM CDT) Narrative [facility] - 12/10/2022 1:11 PM CDT [...] Hepatology Fellow Division of Gastroenterology and Hepatology [facility] Dina Pritchard DO GI PROCEDURE ORDERAB LES [facility] * NM GASTRIC EMPTYING (12/07/2022 3:51 PM CDT) Anatomical Region Laterality Modality Abdomen Nuclear Medicine 12/07/2022 2:16 PM CDT Impressions 12/07/2022 4:40 PM CDT Impression: Abnormal delayed gastric emptying with T 1/2 of >120 minutes. Of note, standardized normal values are not established for liquid gastric emptying and may vary per institution protocol. > Dictated by Concha Turner MD (Tube Wrapper) 12/07/2022 2:16 PM Sarah Thomason DO have [...] 96.0% @ 90 minutes Procedure Note Sarah Mason, DO - 12/07/2022 PROCEDURE: NM GASTRIC EMPTYING DATE/TIME OF EXAM: 12/07/2022 2:25 PM CLINICAL INFORMATION: None relevant/not provided if blank. Indication: Z93.1: PEG (percutaneous endoscopic gastrostomy) status (CMS/[facility]) Procedure: Gastric Emptying Study History: 62-year-old male [...] protocol. > Dictated by Concha Turner MD (Tube Wrapper) 12/07/2022 2:16PM ISarah DO have personally reviewed and interpreted this examination/study. > Interpreting Provider: Sarah Mason DO on 12/07/2022 4:40 PM Ilir Mckenzie MD NM ORDERABLES * TRANSFUSE RED BLOOD CELL LEUKOREDUCED UNIT(S) (12/01/2022 2:23 AM CDT) Ilir Mckenzie MD NURSING - BLOOD PROD TRANSFUSION * PREPARE (CROSSMATCH) RBC UNIT(S), 1 Units (11/30/2022 10:51 PM CDT) Unit Description AS1 LR PRBC IRR [facility] Unit ABO O [facility] Unit Rh POS [facility] Product Number R[address] [facility] B LOOD BANK LAB Unit Donor # [id number] [facility] Unit Status transfused [facility] B[facility] OD [facility]ANK LAB Product Code [id number] [facility] Blood Type Barcode [address] [facility] Expiration Date [id number] S BLOOD BANK LAB Blood Bank BLOOD SPECIMEN / Unknown 11/30/2022 5:03 PM CDT Ilir Mckenzie MD LAB - BLOOD BANK ORD ERABLES [facility] [address] [place] [address], [facility] [phone] * VAS BILATERAL VENOUS DUPLEX LE (11/29/2022 11:46 AM CDT) Anatomical Region Laterality Modality Lower Extremity Intravascular Ul trasound 11/29/2022 11:1 3 AM CDT Narrative Procedure Note Kaylee Wills MD - 11/29/2022 Ramya Witt MD VASCULAR LAB OR DERABLES * (ABNORMAL) ECHO COMPLETE (11/29/2022 9:56 AM CDT) BSA [id number] m2 [facility] CV FUJ I PACS LV [...] 63.148 cm/s [facility] CV FUJ I PACS [id number] 6.722 cm [facility] CV FUJ I PACS [id number] 6.885 cm [facility] CV FUJ I PACS [...] METANEPHRINES URINE FRACTIONATED (11/29/2022 8:31 AM CDT) [facility] Metanephrine 24 Hour Urine 181 55 - 320 ug/d 12/03/2022 6:56 AM CDT [facility] ([facility]) Collection Time Hours 24 hr 12/03/2022 6:56 AM CDT [facility] ([facility]) Comment: Per 24h calculations are provided to aid interpretation for collections with a duration of 24 hours and an average daily urine volume. For specimens with notable deviations in collection time or volume, ratios of analytes to a corresponding urine creatinine concentration may assist in result interpretation. Volume 24 Hour Urine 1250 mL 12/03/2022 6:56 AM CDT [facility] ([facility]) Metanephrine Urine 145 ug/L 2022 6:56 AM CDT [facility]) Normetanephrine Urine 1362 ug/L 12/03/2022 6:56 AM CDT [facility]) Metanephrine Urine Ratio to BUSINESS MANAGEMENT PROFESSOR 179 0 - 300 ug/g BUSINESS MANAGEMENT PROFESSOR 12/03/2022 6:56 AM CDT [facility]) Normetanephrine 24 Hour Urine 1702(H) 114 - 865 ug/d 12/03/2022 6:56 AM CDT [facility]) Normetanephrine ug/g BUSINESS MANAGEMENT PROFESSOR 1681(H) 0 - 400 ug/g BUSINESS MANAGEMENT PROFESSOR 12/03/2022 6:56 AM CDT [facility] ([facility]) Interpretation Metanephrine Urine See Note 12/03/2022 6:56 AM CDT [facility] ([facility]) Comment: TEST INFORMATION: Metanephrines Fractionated, Urine [...] reference intervals for this test in the [employer] [facility] Test Directory ([employer]). This test was developed and its performance characteristics determined by [facility]. It has not been cleared or approved by the [place] Food and Drug Administration. This test was performed in a CLIA certified laboratory and is intended for clinical purposes. Creatinine Urine 81 mg/dL 12/04/19 6:56 AM CDT [facility] ([facility]) Creatinine 24 Hour Urine 1012 800 - 2100 mg/d 12/03/2022 6:56 AM CDT [facility] ([facility]) Comment: Performed by [facility], [address] [place] [address] [email or web address] Power Milian MD, PHD, Lab. Director Urine URINE SPECIMEN COLLECTION, 24 HOURS / Unknown Timed Urine Volume Measurement / Unknown 11/29/2022 8:31 AM CDT 11/29/2022 9:31 AM CDT Ramya Witt MD LAB - URINE STEFANI MATHEUS ORDERABLES [facility]) [address] * CT ANGIO CHEST PULM EMBOLISM (11/27/2022 [...] positioned. > Dictated by Leonardo Harris MD (radiology director). IAshwin MD have personally reviewed and interpreted this examination/study. > Interpreting Provider: Ashwin Lopez MD on 11/27/2022 5:49 PM Narrative 11/27/2022 5:49 PM CDT PROCEDURE: CT ANGIO CHEST PULM EMBOLISM, DATE/TIME OF EXAM: 11/27/2022 2:33 PM, LOCATION [facility] INDICATION: R00.0: Sinus tachycardia ADDITIONAL CLINICAL [...] EMBOLISM, DATE/TIME OF EXAM: 32:33 PM, LOCATION [facility] INDICATION: R00.0: Sinus tachycardia ADDITIONAL CLINICAL [...] positioned. > Dictated by Leonardo Harris MD (radiology director). I, Ashwin Lopez MD have personally reviewed and interpreted this examination/study. > Interpreting Provider: Ashwin Lopez MD on 11/27/2022 5:49 [address] Witt MD CT ORDERABLES * CT SINUS WWO CONTRAST (11/25/2022 6:36 [...] verification. > Dictated by Christian Yañez DO (radiology director). I, Jason Sanchez MD have personally reviewed [...] verification. > Dictated by Christian Yañez DO (radiology director). IJason MD have personally reviewed and interpreted [...] > Dictated by Usman Arce MD, MD (radiology director). Ashwin Thomason MD have personally reviewed and interpreted this examination/study. > Interpreting Provider: Ashwin Lopez MD on 11/25/2022 11:20 AM Narrative 11/25/2022 11:20 AM CDT PROCEDURE: CT CHEST W CONTRAST, DATE/TIME OF EXAM: 11/25/2022 6:37 AM, LOCATION [facility] INDICATION: R04.2: Hemoptysis ADDITIONAL CLINICAL INFORMATION: [...] upper abdominal organs are normal. Procedure Note Dainne Lopez MD - 11/25/2022 PROCEDURE: CT CHEST W CONTRAST, DATE/TIME OF EXAM: 11/25/2022 6:37 AM, LOCATION [facility] INDICATION: R04.2: Hemoptysis ADDITIONAL CLINICAL INFORMATION: [...] > Dictated by Usman Arce MD, MD (radiology director). Ashwin Thomason MD have personally reviewed and interpreted this examination/study. > Interpreting Provider: Ashwin Lopez MD on 11/25/2022 11:20 AM Arthur Marinelli MD CT ORDERABLES * (ABNORMAL) VALPROIC ACID FREE+TOTAL PANEL (10/30/2022 5:46 AM CDT) Only the most recent of4 resultswithin the time period is included. Valproic Acid % Free 21(H) 5 - 18 % 11/06/2022 12:30 PM CDT [facility] ([facility]) Comment: INTERPRETIVE INFORMATION: VPA-percent Free Valproic Acid, [...] include headache, somnolence and dizziness. Performed By: [facility] [address] [place] [id number] [employer] Machine Operator: Power Milian MD, PhD Valproic Acid Free 16 7 - 23 ug/mL 11/06/2022 12:30 PM CDT [facility]) Valproic Acid Total 76 50 - 125 ug/mL 11/06/2022 12:30 PM CDT [facility]) Blood BLOOD SPECIMEN / Unknown Lab Venipuncture / Unknown 10/30/2022 5:46 AM CDT 10/30/2022 6:29 AM CDT Neha Palomino MD LAB - THERAPEUTIC DR DIAZ MONITORING ORDERABLES [facility] ([facility]) [address] * SARS-COV-2 (COVID-19) RAPID (10/21/2022 5:37 PM CDT) Only the most recent of2 resultswithin the time period is included. [facility] COVID-19 PCR Not detected Not detected 10/22/19 6:20 PM CDT [facility] Microbiology SPECIMEN FROM NASOPHARYNGEAL STRUCTURE / Unknown Collection / Unknown 10/21/2022 5:37 PM CDT 10/21/2022 5:44 PM CDT [facility] - 10/21/2022 6:20 PM CDT The Cepheid [...] Mccurdy MD LAB - MICROBIO LOGY ORDERABLES [facility] [address] [place] [address], [facility] [phone] * HEPATITIS C AB SCREEN RFLX NAAT QUANT (09/01/2022 2:05 AM CDT) Only the most recent of3 resultswithin the time period is included. [facility] Hepatitis C Antibody Non-react phan Non-reac tive 09/01/2022 3:09 AM CDT [facility] Comment:Hepatitis C Antibody screen indicates no [...] - CHEMISTRY MARSHAL MEDEROS Performing Organization Address City/[facility]/ZIP Co de Phone Number [address] [address], [facility] [phone] * HIV-1 HIV-2 ANTIBODY + HIV P24 AG PANEL (09/01/2022 2:05 AM CDT) Pathologist [facility] HIV Antigen/Antibod y 1 & 2 Non-reacti ve Non-react phan 09/01/2022 3:09 AM CDT [facility] Comment:No Laboratory eviden ce of HIV infection. Blood BLOOD SPECIMEN / Unknown Venipuncture / Unknown 09/01/2022 2:05 AM CDT 09/01/2022 2:15 AM CDT Artemio Abarca MD LAB - CHEMISTRY MARSHAL MEDEROS Performing Organization Address [facility] [place]/[facility]/ZIP Co de Phone Number [address] [address], [place] [phone] * ECHO COMPLETE (08/30/2022 4:19 PM CDT) Only the most recent of4 resultswithin the time period is included. Anatomical Region Laterality Modality Chest Echo 08/30/2022 3:41 PM CDT Narrative Procedure Note Binta George MD - 08/31/2022 Artemio Abarca MD ECHOCARDIOGRAPHY RAD IANT * CT CHEST WO CONTRAST (08/16/2022 2:29 [...] lobe. Report dictated by Flavio Stover MD (radiology director). I, Bebo Kuo MD have personally reviewed [...] lobe. Report dictated by Flavio Stover MD (radiology director). I, Bebo Kuo MD have personally reviewed and interpreted this examination/study. > Interpreting Provider: Bebo Kuo MD on 33:24 PM Will Butler MD CT ORDERABLES * ARTERIAL LINE PERFORMABLE (07/15/2022 9:55 AM DIGITAL SALES MANAGER) Narrative Nima Campos II, DO - 07/15/2022 9:55 AM DIGITAL SALES MANAGER Nima Campos II, DO 07/15/2022 11:16 AM Arterial Line Placement Procedure Note Patient Location: [place]. Procedure: Arterial Line (13006). Procedure Section Indications: blood sampling needed and [...] CULTURE BRONCHIAL WASHING+GRAM STAIN (07/05/2022 10:31 PM DIGITAL SALES MANAGER) Culture No growth JELLY 07/07/2022 3:52 PM DIGITAL SALES MANAGER [facility] Gram Stain Rare Polymorphonuclear cells 07/07/2022 3:52 PM DIGITAL SALES MANAGER [facility] MI[facility] Gram Stain Rare Squamous epithelial cells 07/07/2022 3:52 PM DIGITAL SALES MANAGER [facility] MICRO[facility] Gram Stain No organisms seen 023 3:52 PM DIGITAL SALES MANAGER [facility] MICRO[facility] Microbiology SPECIMEN FROM LUNG OBTAINED BY BRONCHIAL WASHING PROCEDURE / Unknown Collection / Unknown 07/05/2022 10:31 PM DIGITAL SALES MANAGER 07/05/2022 10:50 PM DIGITAL SALES MANAGER Ramya Witt MD LAB - MICROBIOL OGY ORDERABLES [facility] MICRO[facility] [address] [place] [address], [facility] [phone] * VANCOMYCIN LEVEL RANDOM (07/04/2022 1:45 AM DIGITAL SALES MANAGER) Only the most recent of3 resultswithin the time period is included. Vancomycin Random 22.0 Therapeutic Ranges not established for random specimens ug/mL 07/04/2022 2:20 AM [facility] Blood BLOOD SPECIMEN / Unknown Venipuncture / Unknown 07/04/2022 1:45 AM DIGITAL SALES MANAGER 07/04/2022 1:52 AM DIGITAL SALES MANAGER [facility] - 07/04/2022 2:20 AM DIGITAL SALES MANAGER See institution protocol. Artur Mcgraw MD LAB - CHEMISTRY ORD ERABLES Performing Organization Address City/[facility]/ZIP Co de Phone Number [facility] [address] [place] [address], [facility] [phone] * (ABNORMAL) URINALYSIS W/MICROSCOPIC NO CULTURE (07/02/2022 11:37 AM DIGITAL SALES MANAGER) Only the most recent of7 resultswithin the time period is included. Color UA Yellow Straw, Yellow 07/02/2022 11:56 AM [facility] Clarity UA Clear Clear 07/02/2022 11:56 AM [facility] Specific [place] UA 1.006 1.005 - 1.030 07/02/2022 11:56 AM [facility] pH UA 7.0 5.0 - 8.0 pH 07/02/2022 11:56 AM [facility] Protein UA 1+(A) Negative 07/02/2022 11:56 AM [facility] Glucose UA Negative Negative 07/02/2022 11:56 AM [facility] Ketone UA Negative Negative 07/02/2022 11:56 AM [facility] Bilirubin UA Negative Negative 07/02/2022 11:56 AM [facility] Blood UA Negative Negative 07/02/2022 11:56 AM [facility] Nitrite UA Negative Negative 07/02/2022 11:56 AM [facility] Leukocyte Esterase 3+(A) Negative 07/02/2022 11:56 AM [facility] Urobilinogen UA Negative Negative mg/dL 07/02/2022 11:56 AM [facility] RBC UA 3-5 None Seen, 0-2, 3-5 /HPF 07/02/2022 11:56 AM [facility] WBC UA 6-10(A) None Seen, 0-5 /HPF 07/02/2022 11:56 AM [facility] Bacteria UA Trace(A) None /HPF 07/02/2022 11:56 AM [facility] Squamous Epithelial Cells UA 0-2 None Seen, 0-2, 3-5 /HPF 07/02/2022 11:56 AM [facility] Yeast Budding UA Few(A) None /HPF 07/02/19 11:56 AM [facility] Urine URINE SPECIMEN OBTAINED BY CLEAN CATCH PROCEDURE / Unknown Collection / Unknown 07/02/2022 11:37 AM DIGITAL SALES MANAGER 07/02/2022 11:44 AM DIGITAL SALES MANAGER Narrative [facility] - 07/02/2022 11:56 AM DIGITAL SALES MANAGER Artur Mcgraw MD LAB - URINALYSIS OR DERABLES [address] [address], [facility] [phone] * SODIUM URINE RANDOM (07/02/2022 11:37 AM DIGITAL SALES MANAGER) Only the most recent of2 resultswithin the time period is included. Sodium Urine 40 Not Established mmol/L 07/02/2022 12:07 PM [facility] Urine URINE SPECIMEN OBTAINED BY CLEAN CATCH PROCEDURE / Unknown Collection / Unknown 07/02/2022 11:37 AM DIGITAL SALES MANAGER 07/02/2022 11:44 AM DIGITAL SALES MANAGER Artur Mcgraw MD LAB - URINE MAT MAN RY ORDERABLES [address] [address], [facility] [phone] * CREATININE URINE RANDOM (07/02/2022 11:37 AM DIGITAL SALES MANAGER) Only the most recent of2 resultswithin the time period is included. Creatinine Urine 26 Not Established mg/dL 07/02/2022 12:07 PM DIGITAL SALES MANAGER [facility] Urine URINE SPECIMEN OBTAINED BY CLEAN CATCH PROCEDURE / Unknown Collection / Unknown 07/02/2022 11:37 AM DIGITAL SALES MANAGER 07/02/2022 11:44 AM DIGITAL SALES MANAGER Artur Mcgraw MD LAB - URINE MAT MAN RY ORDERABLES [facility] [address] [place] [address], [facility] [phone] * US PELVIS LIMITED (07/01/2022 3:00 PM DIGITAL SALES MANAGER) Anatomical Region Laterality Modality Pelvis Ultrasound 07/01/2022 3:19 PM DIGITAL SALES MANAGER Narrative 07/02/2022 8:36 AM DIGITAL SALES MANAGER PROCEDURE: US PELVIS LIMITED, DATE/TIME OF EXAM: 07/01/2022 2:23 PM, LOCATION [facility] INDICATION: Z86.73: History of CVA (cerebrovascular [...] 06/28/2022. Report dictated by Ashu Welch M.D. (radiology director) Rachel Thomason MD have personally reviewed and interpreted this examination/study. > Interpreting Provider: Rachel Phillips MD on 07/02/2022 8:36 AM Procedure Note Rachel Phillips MD - 07/02/2022 PROCEDURE: US PELVIS LIMITED, DATE/TIME OF EXAM: 07/01/2022 2:23 PM, LOCATION [facility] INDICATION: Z86.73: History of CVA (cerebrovascular [...] 06/28/2022. Report dictated by Ashu Welch M.D. (radiology director) I, Rachel Phillips MD have personally reviewed and interpreted this examination/study. > Interpreting Provider: Rachel Phillips MD on 07/02/2022 8:36 AM Artur Mcgraw MD US ORDERABLES * CULTURE BLOOD FUNGUS (06/30/2022 8:45 PM DIGITAL SALES MANAGER) [facility] Culture No fungus isolated JELLY 08/09/2022 2:06 PM CDT [facility] Blood PERIPHERAL BLOOD / Unknown Lab Venipuncture / Unknown 06/30/2022 8:45 PM DIGITAL SALES MANAGER 06/30/2022 9:20 PM DIGITAL SALES MANAGER Artur Mcgraw MD LAB - MICROBIOLOGY ORDERABLES [facility]CROBI[facility] [address] [place] [address], [facility] [phone] * RESPIRATORY PANEL WITH SARS-COV-2 BY PCR [facility] (06/30/2022 7:52 PM DIGITAL SALES MANAGER) Adenovirus PCR Not detected Not detected 07/01/2022 12:14 AM DIGITAL SALES MANAGER [facility] Coronavirus 229E PCR Not detected Not detected 07/01/2022 12:14 AM DIGITAL SALES MANAGER [facility] Coronavirus HKU1 PCR Not detected Not detected 07/01/2022 12:14 AM DIGITAL SALES MANAGER [facility] Coronavirus NL63 PCR Not detected Not detected 07/01/2022 12:14 AM DIGITAL SALES MANAGER [facility] Coronavirus OC43 PCR Not detected Not detected 07/01/2022 12:14 AM DIGITAL SALES MANAGER [facility] COVID-19 PCR Not detected Not detected 07/01/2022 12:14 AM DIGITAL SALES MANAGER [facility] Human Metapneumovirus PCR Not detected Not detected 07/01/2022 12:14 AM DIGITAL SALES MANAGER [facility] Human Rhinovirus/Enterov irus PCR Not detected Not detected 07/01/2022 12:14 AM DIGITAL SALES MANAGER [facility] Influenza A PCR Not detected Not detected 07/01/2022 12:14 AM DIGITAL SALES MANAGER [facility] Influenza B PCR Not detected Not detected 07/01/2022 12:14 AM DIGITAL SALES MANAGER [facility] Parainfluenza Virus 1 PCR Not detected Not detected 07/01/2022 12:14 AM DIGITAL SALES MANAGER [facility] Parainfluenza Virus 2 PCR Not detected Not detected 07/01/2022 12:14 AM DIGITAL SALES MANAGER [facility] Parainfluenza Virus 3 PCR Not detected Not detected 07/01/2022 12:14 AM DIGITAL SALES MANAGER [facility] Parainfluenza Virus 4 PCR Not detected Not detected 07/01/2022 12:14 AM DIGITAL SALES MANAGER [facility] Respiratory Syncytial Virus PCR Not detected Not detected 07/01/2022 12:14 AM DIGITAL SALES MANAGER [facility] Bordetella parapertussis PCR Not detected Not detected 07/01/2022 12:14 AM DIGITAL SALES MANAGER [facility] Bordetella pertussis PCR Not detected Not detected 07/01/2022 12:14 AM DIGITAL SALES MANAGER [facility] Chlamydia pneumoniae PCR Not detected Not detected 07/01/2022 12:14 AM DIGITAL SALES MANAGER [facility] Mycoplasma pneumoniae PCR Not detected Not detected 07/01/2022 12:14 AM DIGITAL SALES MANAGER [facility] Microbiology SPECIMEN FROM NASOPHARYNGEAL STRUCTURE / Unknown Collection / Unknown 06/30/2022 7:52 PM DIGITAL SALES MANAGER 06/30/2022 7:55 PM [facility] - 07/01/2022 12:14 AM DIGITAL SALES MANAGER This nucleic amplification assay has received FDA authorization via the [employer]. Artur Mcgraw MD LAB - MICROBIOLOGY ORDERABLES [facility] [address] [place] [address], [facility] [phone] * VAS RIGHT VENOUS DUPLEX UE (06/30/2022 3:22 PM DIGITAL SALES MANAGER) Anatomical Region Laterality Modality Upper Extremity Intravascular Ul trasound 06/30/2022 2:44 PM DIGITAL SALES MANAGER Narrative Procedure Note Shane Doyle MD - 06/30/2022 Artur Mcgraw MD VASCULAR LAB ORDERA BLES * (ABNORMAL) HEPATIC FUNCTION PANEL (06/30/2022 10:39 AM DIGITAL SALES MANAGER) Only the most recent of4 resultswithin the time period is included. Protein Total 6.2 6.0 - 8.3 g/dL 023 1:57 PM [facility] Albumin 2.2(L) 3.4 - 5.0 g/dL 06/30/2022 1:57 PM [facility] Bilirubin Total 0.3 0.2 - 1.2 mg/dL 05/2022 1:57 PM [facility] Bilirubin Conjugated 0.2 0.1 - 0.5 mg/dL 06/30/2022 1:57 PM [facility] Bilirubin Unconjugated 0.1 Unconjugated Bilirubin is a calculated value: Reference ranges have not been established. mg/dL 06/30/2022 1:57 PM [facility] Alkaline Phosphatase 65 40 - 150 U/L 06/30/2022 1:57 PM [facility] ALT 5 5 - 55 U/L 06/30/2022 1:57 PM [facility] AST 13 5 - 34 U/L 06/30/2022 1:57 PM [facility] Albumin/Globulin Ratio 0.6(L) 1.1 - 2.3 06/30/2022 1:57 PM DIGITAL SALES MANAGER [facility] Blood BLOOD SPECIMEN / Unknown Lab Venipuncture / Unknown 06/30/2022 10:39 AM DIGITAL SALES MANAGER 06/30/2022 10:45 AM DIGITAL SALES MANAGER Artur Mcgraw MD LAB - CHEMISTRY ORD ERABLES [facility] [address] [place] [address], [facility] [phone] * (ABNORMAL) CULTURE MRSA (06/29/2022 12:42 PM DIGITAL SALES MANAGER) Culture Growth of Staphylococcus aureus methicillin-resist ant (MRSA)(A) 06/30/2022 9:39 PM DIGITAL SALES MANAGER [facility] Microbiology SPECIMEN FROM NASAL FOSSAE / Unknown Collection / Unknown 06/29/2022 12:42 PM DIGITAL SALES MANAGER 06/29/2022 12:50 PM DIGITAL SALES MANAGER Narrative [facility] - 06/30/2022 9:39 PM DIGITAL SALES MANAGER Methicillin-resistant Staphylococci (MRSA) are resistant to all currently available beta-lactam antibiotics with the exception of the newer cephalosporins with anti-MRSA activity. Contact precautions required. Artur Mcgraw MD LAB - MICROBIOLOGY ORDERABLES Performing Organization Address City/[facility]/ZIP Co de Phone Number [facility] [address] [place] [address], [facility] [phone] * LEGIONELLA ANTIGEN URINE (06/28/2022 3:48 AM DIGITAL SALES MANAGER) Legionella Antigen Urine Negative Negative 06/28/2022 10:05 AM [facility] MICROBIOLOG[facility] Urine URINE / Unknown Collection / Unknown 06/28/2022 3:48 AM DIGITAL SALES MANAGER 06/28/2022 3:52 AM DIGITAL SALES MANAGER Narrative [facility] - 06/28/2022 10:05 AM DIGITAL SALES MANAGER This assay detects Legionella pneumophila serogroup one (1) antigen. A negative test result does not rule out the possibility of Legionella infection due to other serogroups or species of Legionella. A positive result may indicate a recent or remote infection with serogroup 1. Yasmani Vigil MD LAB - MICROBIOLOGY O RDERABLES [facility] [address] [place] [address], [facility] [phone] * TROPONIN I (06/28/2022 1:41 AM DIGITAL SALES MANAGER) Only the most recent of16 resultswithin the time period is included. Troponin I <0.010 <0.032 ng/mL 06/28/2022 2:16 AM DIGITAL SALES MANAGER [facility] Blood BLOOD SPECIMEN / Unknown Venipuncture / Unknown 06/28/2022 1:41 AM DIGITAL SALES MANAGER 06/28/2022 1:46 AM DIGITAL SALES MANAGER Arthur Marinelli MD LAB - CHEMISTRY ORD ERABLES Performing Organization Address City/[facility]/ZIP Co de Phone Number [facility] [address] [place] [address], [facility] [phone] * CT CHEST PE W ABD PELVIS W CONT (06/28/2022 1:05 AM DIGITAL SALES MANAGER) Only the most recent of2 resultswithin the time period is included. Anatomical Region Laterality Modality Chest, Abdomen, Pelvis Computed Tomography 06/28/2022 1:52 AM DIGITAL SALES MANAGER Impressions 06/28/2022 8:38 AM DIGITAL SALES MANAGER Impression: 1.No evidence of acute pulmonary embolism. [...] unremarkable. > Dictated by Alexandro Kelsey MD (radiology director) I, E. Manas Lopez MD have personally reviewed and interpreted this examination/study. > Interpreting Provider: Ashwin Lopez MD on 06/28/2022 8:38 AM Narrative 06/28/2022 8:38 AM DIGITAL SALES MANAGER PROCEDURE: CT CHEST PE W ABD PELVIS W CONT, DATE/TIME OF EXAM: 06/28/2022 1:26 AM, LOCATION [facility] INDICATION: R09.02: Hypoxia ADDITIONAL CLINICAL INFORMATION: [...] CONT, DATE/TIME OF EXAM:06/28/2022 1:26 AM, LOCATION [facility] INDICATION: R09.02: Hypoxia ADDITIONAL CLINICAL INFORMATION: [...] unremarkable. > Dictated by Alexandro Kelsey MD (radiology director) Ashwin Thomason MD have personally reviewed and interpreted this examination/study. > Interpreting Provider: Ashwin Lopez MD on 06/28/2022 8:38 AM Arthur Marinelli MD CT ORDERABLES * XR CHEST 2VW (06/01/2022 7:54 PM DIGITAL SALES MANAGER) Anatomical Region Laterality Modality Chest Radiographic Cynthia ging 06/02/2022 1:34 PM DIGITAL SALES MANAGER Impressions 06/02/2022 5:09 PM DIGITAL SALES MANAGER IMPRESSION: Bilateral lower lobe opacities consistent with aspiration pneumonia. Report dictated by Ashu Welch M.D. (radiology director) Ashwin Thomason MD have personally reviewed and interpreted this examination/study. > Interpreting Provider: Ashwin Lopez MD on 06/02/2022 5:09 PM Narrative 06/02/2022 5:09 PM DIGITAL SALES MANAGER PROCEDURE: XR CHEST 2VW, DATE/TIME OF EXAM: 06/01/2022 7:54 PM, LOCATION [facility] INDICATION: R91.8: Pulmonary infiltrate ADDITIONAL CLINICAL INFORMATION: [...] DATE/TIME OF EXAM: 06/01/2022 7:54 PM, LOCATION [facility] INDICATION: R91.8: Pulmonary infiltrate ADDITIONAL CLINICAL INFORMATION: [...] Report dictated by Ashu Welch M.D. (radiology director) IAshwin MD have personally reviewed and interpreted this examination/study. > Interpreting Provider: Ashwin Lopez MD on 06/02/2022 5:09 PM Westley Corley MD DIAGNOSTIC IMAGING O RDERABLES * LAB RESULTS ORDER (05/28/2022) Only the most recent of3 resultswithin the time period is included. 05/28/2022 Narrative 05/28/2022 Ordered by an unspecified provider. 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 Report dictated by Scar Oliveira MD (radiology director). I, Rachel Phillips MD have personally reviewed and interpreted this examination/study. > Interpreting Provider: Rachel Phillips MD on 05/14/2022 4:48 PM Narrative 05/14/2022 4:48 PM DIGITAL SALES MANAGER PROCEDURE: FL ESOPHAGRAM, DATE/TIME OF EXAM: 05/14/2022 2:23 PM, LOCATION [facility] INDICATION: R13.12: Oropharyngeal dysphagia ADDITIONAL CLINICAL INFORMATION: [...] ESOPHAGRAM, DATE/TIME OF EXAM: 05/14/2022 2:23 PM,LOCATION [facility] INDICATION: R13.12: Oropharyngeal dysphagia ADDITIONAL CLINICAL INFORMATION: [...] cervicalesophagus. Report dictated by Scar Oliveira MD (radiology director). I, Rachel Phillips MD have personally reviewed and interpreted this examination/study. > Interpreting Provider: Rachel Phillips MD on 05/14/2022 4:48 PM Baldev Carl MD FLUOROSCOPY ORDERABL ES * ETT LINE PERFORMABLE (03/25/2022 4:31 PM CDT) Narrative Yelena Grier APRN-CRNA - 03/25/2022 4:31 PM CDT Yelena Grier APRN-CRNA 03/25/2022 4:52 PM Endotracheal Tube Placement: Intubation Event Date/Time: 03/25/2022 4:31 PM Procedure: intubation ([id number]). Procedure Section: Sedation: under general anesthesia. Indications [...] and oxygen saturations were monitored continuously. The [id number] was introduced through the mouth, and advanced [...] entire procedure. Procedure Code(s): --- Professional --- 86835, Esophagogastroduoden oscopy, flexible, transoral; with directed placement of percutaneous gastrostomy tube Diagnosis Code(s): --- Professional --- K31.89, Other diseases of stomach and duodenum R13.10, Dysphagia, unspecified CPT copyright 2019 [employer]. All rights reserved. The codes documented in this report are preliminary and upon top steep tender review may be revised to meet current compliance requirements. __ Tiffani Castillo MD 03/25/2022 5:11:23 PM Note Initiated On: 03/25/2022 4:19 PM Number of Addenda: [phone] [place] [address] PROVATION 03/25/2022 4:19 PM CDT Artur Mcgraw MD GI PROCEDURE ORDERA [facility] PROVATION * ETT LINE PERFORMABLE (03/15/2022 9:57 AM CDT) Narrative Loretta Coronado MD - 03/15/2022 9:57 AM CDT Loretta Coronado MD 03/15/2022 10:28 AM Endotracheal Tube Placement: Patient Location: [place]. Intubation Event Date/Time: 03/15/2022 9:57 AM Procedure: intubation ([id number]). Procedure Section: Sedation: under general anesthesia. Indications [...] DATE/TIME OF EXAM: 03/15/2022 12:57 AM, LOCATION [facility] INDICATION: R78.81: Bacteremia I73.9: PAD (peripheral artery disease) ([facility]) ADDITIONAL CLINICAL INFORMATION: Ordering Provider [...] DATE/TIME OF EXAM: 03/15/2022 12:57 AM, LOCATION [facility] INDICATION: R78.81: Bacteremia I73.9: PAD (peripheral artery disease) ([facility]/H[facility]) ADDITIONAL CLINICAL INFORMATION: Ordering Provider Reason For [...] DATE/TIME OF EXAM: 03/08/2022 3:38 PM, LOCATION [facility] INDICATION: R50.9: Fever, unspecified fever cause [...] noted. Report dictated by Param Eubanks MD (radiology director). IEron have personally reviewed and interpreted this examination/study. > Interpreting Provider: Eron Payton on 03/08/2022 4:48 PM Procedure Note Eron Payton MD - 03/08/2022 PROCEDURE: XR FOOT LEFT 3VW OR MORE, DATE/TIME OF EXAM: 23:38 PM, LOCATION [facility] INDICATION: R50.9: Fever, unspecified fever cause [...] noted. Report dictated by Param Eubanks MD (radiology director). Eron Thomason have personally reviewed and interpreted [...] DATE/TIME OF EXAM: 12/30/2021 2:40 PM, LOCATION [facility] INDICATION: G40.109: Partial symptomatic epilepsy with simple [...] pardo. Report dictated by Quan Nguyễn MD (radiology director). Bebo Thomason MD have personally reviewed and interpreted this examination/study. > Interpreting Provider: Bebo Kuo MD on 01/05/2022 2:49 PM Procedure Note Bebo Kuo MD - 01/05/2022 PROCEDURE: FL ORAL NJ OR D TUBE PLACEMENT, DATE/TIME OF EXAM: 12/30/2021 2:40 PM, LOCATION [facility] INDICATION: G40.109: Partial symptomatic epilepsy with simple [...] pardo. Report dictated by Quan Nguyễn MD (radiology director). Bebo Thomason MD have personally reviewed and interpreted this examination/study. > Interpreting Provider: Bebo Kuo MD on 01/05/2022 2:49PM Sean Raymundo FLUOROSCOPY ORDERABL ES * CT ANGIO BRAIN [...] > Dictated by: Ami Clifford MD, PhD (radiology director). Saloni Thomason MD have personally reviewed and [...] tissues of the neck. Procedure Note Saloni eLmus MD - 12/29/2021 EXAMINATION: CT angiography of [...] discussed in detail with the patient's careprovider, MD Carrie by Dr. Ami Clifford MD, PhD, via telephone at 0800 hrson 12/29/2021 with readback comprehension and verification. > Dictated by: Ami Clifford MD, PhD (radiology director). Saloni Thomason MD have personally reviewed and [...] discussed in detail with the patient's care providerCarrie MD by Dr. Ami Clifford MD, PhD, via telephone at 0816 hrs on 12/29/2021 with readback comprehension and verification. > Dictated by: Ami Clifford MD, PhD (radiology director). 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 Moderate cerebralwhite matter hypodensity is compatible [...] > Dictated by: Ami Clifford MD, PhD (radiology director). I, Saloni Lemus MD have personally reviewed [...] of5 resultswithin the time period is included. [facility] Amphetamines Screen Urine Negative Negative: < 1000 ng/mL 02/25/2021 2:[address] [facility] Barbiturates Screen Urine Negative Negative: < 200 ng/mL 02/25/2021 2:[address] [facility] Benzodiazepine Screen Urine Negative Negative: < 200 ng/mL 02/25/2021 2:[address] [facility] Opiates Urine Negative Negative: < 300 ng/mL 02/25/2021 2:[address] [facility] Cocaine Metabolites Urine Negative Negative: < 300 ng/mL 02/25/2021 2:18 PM CDT [facility] Phencyclidine Screen Urine Negative Negative: < 25 ng/ml 02/25/2021 2:18 PM CDT [facility] Cannabinoids Screen Urine Negative Negative: <50 ng/mL 02/25/2021 2:18 PM CDT [facility] Methadone Screen Urine Negative Negative: < 300 ng/mL 02/25/2021 2:18 PM T [facility] Fentanyl Screen Urine Negative Negative: <1.0 ng/mL 02/25/2021 2:18 PM T [facility] Urine URINE / Unknown Collection / Unknown 02/25/2021 1:57 PM CDT 02/25/2021 2:04 PM CDT [facility] - 02/25/2021 2:18 PM CDT The Urine Toxicology Screening Panel does not screen for Propoxyphene, Meprobamate, Carisoprodol, Trazodone, udxo-uab-qioupwg medications and/or volatiles (Acetone, Isopropanol, Methanol or Ethylene Glycol). Ethanol, Salicylate, Acetaminophen, Tricyclic Antidepressants and several therapeutic drugs may be individually assayed in serum or plasma specimen. Toxicology testing by the [facility] is an aid to medical diagnosis and treatment of patients. No documented chain of custody was maintained. Results are intended to be used for clinical purposes only. Shane Fajardo MD LAB - URINE CHEMIS TRY ORDERABLES Performing Organization Address City/State/[facility] Co de Phone Number [facility] [address] [place] [phone], [facility] [phone] * ALCOHOL ETHYL BLOOD (02/25/2021 11:35 AM CDT) Only the most recent of9 resultswithin the time period is included. Ethanol (mg/dL) <10 <10 mg/dL 12:53 PM CDT [facility] Ethanol Calculated (g/dL) <0.010 <0.010 g/dL 02/25/2021 12:53 PM T [facility] Blood BLOOD SPECIMEN / Unknown Venipuncture / Unknown 02/25/2021 11:35 AM CDT 02/25/2021 12:12 PM CDT Narrative [facility] - 02/25/2021 12:53 PM CDT Ethanol Interp <10: None Detected. Depression of TABLE TENDER SLUDGE: >100 mg/dl Potentially Critical: >250 mg/dl Potentially [...] Fajardo MD LAB - CHEMISTRY OR DERABLES [address] [address], [facility] [phone] * BLOOD TYPE VERIFICATION (02/25/2021 11:30 AM CDT) ABO Rh O POS 02/25/2021 12:[address] [facility] Blood Bank BLOOD SPECIMEN / Unknown Lab Venipuncture / Unknown 02/25/2021 11:30 AM CDT 02/25/2021 12:21 PM CDT Provider Unknown LAB - BLOOD BANK ORD ERABLES Performing Organization Address City/[facility]/ZIP Co de Phone Number [facility] [address] [place] [phone], [place] [phone] * CREATININE - POCT INTERFACED (02/25/2021 11:25 AM CDT) Creatinine POCT 0.73 0.30 - 1.30 mg/dL 02/25/2021 11:[address] [facility] eGFR >60 >60 mL/min/1.7 3 m2 02/25/2021 11:[address] [facility] Blood BLOOD SPECIMEN / Unknown 02/25/2021 11:25 AM CDT 02/25/2021 11:28 AM CDT Shane Fajardo MD LAB - POINT OF CAR E ORDERABLES [facility] [address] [place] [address], [facility] [phone] * US RETROPERITONEAL COMPLETE (08/20/2020 10:47 AM CDT) Anatomical Region Laterality Modality Abdomen Ultrasound 08/20/2020 10:4 3 AM CDT Impressions 08/20/2020 10:52 AM CDT IMPRESSION: Within the limitations of the study, the kidneys appear grossly unremarkable. Dictated by Yonis Howard MD (radiology director). Dr. NAJMA Thomason have personally reviewed [...] grossly unremarkable. Dictated by Yonis Howard MD (radiology director). Dr. NAJMA Thomason have personally reviewed and interpreted this examination/study. This report was electronically signed by NAJMA BRITT on 110:52 AM . Baldev Carl MD ORDERABLES * MRI BRAIN WO CONTRAST (08/15/2020 [...] body visualized. Dictated by Brandee Celestin MD (radiology director). I, Dr. CHARLES GARSIA MD have [...] body visualized. Dictated by Brandee Celestin MD (radiology director). I, Dr. CHARLES GARSIA MD have personally reviewed and interpreted this examination/study. This report was electronically signed by CHARLES GARSIA MD on08/15/2020 1:42 PM . Baldev Carl MD DIAGNOSTIC IMAGING O RDERABLES * HEPARIN PLATELET INDUCED ANTIBODY (08/15/2020 9:08 AM CDT) Interpretation Heparin Platelet Antibody Negative Negative 08/15/2020 1:[address] [facility] Comment:Heparin induced thro mbocytopenia (HIT) is unlikely in the presence of a negative HIT antibody test result by VLADISLAV and low pretest probability for type II HIT (scoring system of Warsharifatin). It is suggested to verify positive HIT VLADISLAV antibody test results by HIT Antibody Serotonin Release Assay. HIT VLADISLAV Patient OD 0.142 <0.400 OD 08/15/2020 1:29 PM CDT [facility] Blood BLOOD SPECIMEN / Unknown Lab Venipuncture / Unknown 08/15/2020 9:08 AM CDT 08/15/2020 9:30 AM CDT Baldev Carl MD LAB - CHEMISTRY MARSHAL MEDEROS [facility] [address] [place] [address], [facility] [phone] * IR ANGIOGRAM LEFT LEG (07/18/2019 3:31 PM DIGITAL SALES MANAGER) Anatomical Region Laterality Modality Lower Extremity X-Ray Angiograph y 07/18/2019 3:11 PM DIGITAL SALES MANAGER Impressions 07/18/2019 3:15 PM DIGITAL SALES MANAGER stenosis impression: IMPRESSION: Successful angioplasty of anterior tibial artery and superficial femoral artery This report was electronically signed by ANNA BAEZA M.D. on 07/18/2019 3:15 PM . Narrative 07/18/2019 3:15 PM DIGITAL SALES MANAGER Preprocedure diagnosis ischemic left lower extremity Postprocedure [...] access via Seldinger technique and a 6 Salvadorean sheath was placed. A combination of Omni Flush catheter and Glidewire were used to come up and over. Once the catheter was in the superficial femoral artery the system was changed out to a stiff wire. In up and over sheath of 6 Salvadorean was then placed. Images of left lower [...] access via Seldinger technique and a 6 Salvadorean sheath was placed. A combination of Omni Flush catheter and Glidewire were used to come up and over. Once the catheter was in the superficial femoral artery the system was changed out to a stiff wire. In up and over sheath of 6 Salvadorean was then placed. Images of left lower [...] ABDOMEN AORTA W RUNOFF (07/02/2019 3:15 PM DIGITAL SALES MANAGER) Anatomical Region Laterality Modality Abdomen, Lower Extremity Compute d Tomography 07/02/2019 3:48 PM DIGITAL SALES MANAGER Impressions 07/03/2019 3:43 PM DIGITAL SALES MANAGER IMPRESSION: Significant atherosclerotic disease, as described above. Dictated by Marianna Langley MD (radiology director). Dr. Ashwin Thomason M.D. have personally reviewed and interpreted this examination/study. This report was electronically signed by Ashwin LOPEZ M.D. on 07/03/2019 3:43 PM . Narrative 07/03/2019 3:43 PM DIGITAL SALES MANAGER EXAMINATION: Computed tomography (CT) angiography of the [...] above. Dictated by Marianna Langley MD (radiology director). IDr. Ashwin M.D. have personally reviewed and interpretedthis examination/study. This report was electronically signed by Ashwin LOPEZ M.D. on 07/03/2019 3:43 PM . Vinicius Maldonado MD CT ORDERABLES * MRI BRAIN WWO CONTRAST (06/16/2019 1:35 PM DIGITAL SALES MANAGER) Only the most recent of2 resultswithin the time period is included. Anatomical Region Laterality Modality Head Magnetic Resonan ce 06/18/2019 12:3 3 PM DIGITAL SALES MANAGER Impressions 06/18/2019 12:51 PM DIGITAL SALES MANAGER IMPRESSION: 1.No evidence of acute intracranial findings. 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 3.Redemonstration of severe right hippocampus volume loss. 4.Additional chronic findings as above. 5.Unchanged enhancing lesion in the right maxillary sinus. 6.Paranasal sinus disease. This report was electronically signed by WOJCIECH ZAMBRANO on 06/18/2019 12:51 PM . Narrative 06/18/2019 12:51 PM DIGITAL SALES MANAGER MRI BRAIN WWO CONTRAST DATE: 06/16/2019 1:35 [...] MR ORDERABLES * TSH (05/15/2019 4:52 PM DIGITAL SALES MANAGER) Only the most recent of4 resultswithin the time period is included. TSH 1.344 0.350 - 4.940 uIU/mL 05/15/2019 5:34 PM DIGITAL SALES MANAGER [facility] Blood BLOOD SPECIMEN / Unknown Lab Venipuncture / Unknown 05/15/2019 4:52 PM DIGITAL SALES MANAGER 05/15/2019 4:57 PM DIGITAL SALES MANAGER Bipin Becker MD LAB - CHEMISTRY MARSHAL MEDEROS Performing Organization Address City/[facility]/[place] [address], [facility] [phone] * T4 FREE (05/15/2019 4:52 PM DIGITAL SALES MANAGER) Only the most recent of2 resultswithin the time period is included. T4 Free 0.9 0.7 - 1.5 ng/dL 05/15/2019 5:34 PM DIGITAL SALES MANAGER [facility] Blood BLOOD SPECIMEN / Unknown Lab Venipuncture / Unknown 05/15/2019 4:52 PM DIGITAL SALES MANAGER 05/15/2019 4:57 PM DIGITAL SALES MANAGER Bipin Becker MD LAB - CHEMISTRY MARSHAL MEDEROS Performing Organization Address [facility] [place]/[facility] [place] [address], [facility] [phone] * CK + CKMB PANEL (05/15/2019 9:11 AM DIGITAL SALES MANAGER) Pathologist [facility] CK Total 63 30 - 200 Units/L 05/15/2019 9:42 AM DIGITAL SALES MANAGER [facility] CK-MB 0.8 0.0 - 6.6 ng/mL 05/15/2019 9:42 AM [facility] Blood BLOOD SPECIMEN / Unknown Lab Venipuncture / Unknown 05/15/2019 9:11 AM DIGITAL SALES MANAGER 05/15/2019 9:15 AM DIGITAL SALES MANAGER Brian Lawrence MD LAB - CHEMISTRY MARSHAL MEDEROS Performing Organization Address [facility] [place]/[facility] [place] [address], [facility] [phone] * EEG VIDEO MONITORING (05/12/2019 11:59 AM DIGITAL SALES MANAGER) Narrative Ck Feliciano MD - 05/12/2019 11:59 AM DIGITAL SALES MANAGER Ck Feliciano MD 05/15/2019 10:57 AM EEG REPORT Patient Name: Bi Tabor EEG#: [id number] Start Time: 22:46 PM 05/09/2019 Stop Time: 11:35 AM 05/12/2019 Clinical History: iB Tabor is a 59 year old male [...] (ABNORMAL) VITAMIN D 25-HYDROXY (05/10/2019 8:32 AM DIGITAL SALES MANAGER) Only the most recent of2 resultswithin the time period is included. Vitamin D, 25 Hydroxy 28.9(L) See comment: ng/mL 05/10/2019 11:15 AM DIGITAL SALES MANAGER [facility] Comment: The recommendations for 25-Hydroxy Vitamin [...] Lab Venipuncture / Unknown 05/10/2019 8:32 AM DIGITAL SALES MANAGER 05/10/2019 8:44 AM DIGITAL SALES MANAGER Devika Cross MD LAB - CHEMISTRY MARSHAL MEDEROS [facility] Organization Address City/State/ZIP Co de Phone Number [address] [phone] * PROLACTIN (01/24/2019 2:45 AM CDT) Only the most recent of2 resultswithin the time period is included. Prolactin 5.7 2.1 - 17.7 ng/mL 2019 3:41 AM CDT [facility] ([facility]) Comment: REFERENCE INTERVAL: Prolactin Access complete set of age- and/or gender-specific reference intervals for this test in the [facility] ([employer]). Performed by [facility], [address] [place] [address] [email or web address], Mio Anderson MD, Lab. Director Blood BLOOD SPECIMEN / Unknown 01/24/2019 2:45 AM CDT 01/24/2019 3:03 AM CDT Sean Martinez MD LAB - CHEMISTRY MARSHAL MEDEROS [facility]) [address] [place] [address] * (ABNORMAL) PHENYTOIN LEVEL TOTAL (01/24/2019 1:54 AM CDT) Only the most recent of9 resultswithin the time period is included. Phenytoin, total <0.5(L) 10.0 - 20.0 mcg/mL 01/24/2019 2:29 AM CDT [facility] Blood BLOOD SPECIMEN / Unknown Venipuncture / Unknown 01/24/2019 1:54 AM CDT 01/24/2019 2:01 AM CDT Nima Yee MD LAB - CHEMISTRY [facility]SHAL MEDER[facility] [address] [phone] * (ABNORMAL) SODIUM BLOOD (01/15/2019 11:03 AM CDT) Only the most recent of2 resultswithin the time period is included. Sodium 132(L) 136 - 145 mmol/L 01/15/2019 12:22 PM CDT [facility] Blood BLOOD SPECIMEN / Unknown Lab Venipuncture / Unknown 01/15/2019 11:03 AM CDT 01/15/2019 11:48 AM CDT Germain Cardoza MD LAB - CHEMISTRY MARSHAL MEDEROS Performing Organization Address [facility] [place]/[facility] Co de Phone Number [address] [phone] * OSMOLALITY URINE (01/14/2019 6:13 AM CDT) Osmolality Urine 236 50-1,200 mOsm/kg 01/14/2019 5:06 PM CDT [facility] Urine URINE SPECIMEN OBTAINED BY CLEAN CATCH PROCEDURE / Unknown Collection / Unknown 01/14/2019 6:13 AM CDT 01/14/2019 6:13 AM CDT Germain Cardoza MD LAB - URINE CHEMISTR Y ORDERABLES Performing Organization Address [facility] [place]/[facility] Co de Phone Number [address] [phone] * (ABNORMAL) CARBAMAZEPINE LEVEL TOTAL (01/14/2019 1:23 AM CDT) Pathologist [facility] Carbamazepine, trough 1.9(L) 4.0 - 12.0 mcg/mL 01/14/2019 1:45 AM CDT [facility] Blood BLOOD SPECIMEN / Unknown Venipuncture / Unknown 01/14/2019 1:23 AM CDT 01/14/2019 1:23 AM CDT Everett Proctor MD LAB - CHEMISTRY MARSHAL MEDEROS Performing Organization Address [facility] [place]/[facility] Co de Phone Number [address] [phone] * OXCARBAZEPINE BLOOD (10/21/2018 12:31 PM CDT) Only the most recent of4 resultswithin the time period is included. Oxcarbazepine Metabolite None Detected 10 - 35 ug/mL 10/27/2018 11:12 AM CDT [facility] ([facility]) Comment: This test was developed and its performance characteristics determined by [facility]. It has not been cleared or approved by the Food and Drug Administration. Detection Limit = 1 Blood BLOOD SPECIMEN / Unknown Venipuncture / Unknown 10/21/2018 12:31 PM CDT 10/21/2018 12:35 PM CDT Narrative [facility] ([facility]) - 10/27/2018 11:12 AM CDT Performed at: - [address] [id number] Advanced Solutions Architect: Terence Ramos MD, Phone: [phone] Sean Martinez MD LAB - CHEMISTRY MARSHAL MEDEROS [facility] ([facility]) [address] [place] [address] * HIV-1 HIV-2 ANTIGEN/ANTIBODY (09/05/2018 10:52 PM CDT) Only the most recent of3 resultswithin the time period is included. HIV Antigen/Antibod y 1 & 2 Non-reacti ve Non-react phan 09/05/2018 11:33 PM CDT [facility] Comment: Neither HIV-1 p24 Antigen nor HIV-1/HIV-2 Antibodies are detected. Blood BLOOD SPECIMEN / Unknown Venipuncture / Unknown 09/05/2018 10:52 PM CDT 09/05/2018 10:55 PM CDT Naa Reyna MD LAB - HEMATOLOGY ORD BRENDA Performing Organization Address City/[facility]/ZIP Co de Phone Number [address] [phone] * CT FACIAL BONES WO CONTRAST (03/31/2018 3:16 PM CDT) Anatomical Region Laterality Modality Head Computed Tomogra phy 03/31/2018 3:30 PM CDT Impressions 03/31/2018 3:51 PM CDT IMPRESSION: 1. No acute intracranial process. 2. No acute facial bone fracture. Dictated by Carrie Paiz M.D. (radiology director). I, Dr. VIVIAN ORTIZ have personally reviewed [...] bone fracture. Dictated by Carrie Paiz M.D. (radiology director). Dr. VIVIAN Thomason have personally reviewed and [...] alignment. Dictated by Gaurav Kumar MD (radiology director). This report was approved by Gaurav Kumar [...] alignment. Dictated by Gaurav Kumar MD (radiology director). This report was approved by Gaurav Kumar M.D. on 10/15/2017 10:[address] EDILBERTO Thomason MD have personally reviewed and interpretedthis examination/study. This report was electronically signed by Dr. EDILBERTO MARTINEZ MD on 10/15/2017 11:01 AM . Raul Mccurdy DIAGNOSTIC IMAGING ORDERABLES * XR SHOULDER RIGHT 2VW OR MORE (10/13/2017 11:48 AM CDT) Anatomical Region Laterality Modality Upper Extremity Radiographic Cynthia ging 10/13/2017 11:5 2 AM CDT Impressions 10/13/2017 1:53 PM CDT IMPRESSION: Distal right clavicle fracture with mild inferior displacement of the distal fragment. Dictated by Riky Perez MD (radiology director). Dr. MADHURI Thomason M.D. have personally reviewed [...] fragment. Dictated by Riky Perez MD (radiology director). Dr. MADHURI Thomason M.D. have personally reviewed [...] clavicle fracture is partially imaged. Dictated by Rkiy Perez MD (radiology director). Dr. MADHURI Thomason M.D. have personally reviewed [...] imaged. Dictated by Riky Perez MD (radiology director). Dr. MADHURI Thomason M.D. have personally reviewed and interpreted this examination/study. This report was electronically signed by MADHURI FRANCO M.D. on 10/13/2017 1:51 PM . Power Epperson MD DIAGNOSTIC IMAGING O RDERABLES * DRUG ABUSE PANEL 10-20+ETHANOL URINE NO CONFIRM (08/28/2016 1:00 PM CDT) Only the most recent of3 resultswithin the time period is included. Amphetamines Screen Urine Negative Negative: < 1000 ng/mL [facility] Barbiturates Screen Urine Negative Negative: < 200 ng/mL [facility] Benzodiazepine Screen Urine Negative Negative: < 200 ng/mL [facility] Opiates Urine Negative Negative: < 300 ng/mL [facility] Cocaine Metabolites Urine Negative Negative: < 300 ng/mL [facility] Phencyclidine Screen Urine Negative Negative: < 25 ng/ml [facility] Cannabinoids Screen Urine Negative Negative: <50 ng/mL [facility] Methadone Screen Urine Negative Negative: < 300 ng/mL [facility] Urine specimen (specimen) URINE / Unknown 08/28/2016 1:00 PM CDT 08/28/2016 1:03 PM CDT Narrative [facility] - 08/28/2016 1:23 PM CDT The Urine Toxicology Screening Panel does not screen for Propoxyphene, Meprobamate, Carisoprodol, Trazodone, bidd-eqp-gxciorm medications and/or volatiles (Acetone, Isopropanol, Methanol or Ethylene Glycol). Ethanol, Salicylate, Acetaminophen, Tricyclic Antidepressants and several therapeutic drugs may be individually assayed in serum or plasma specimen. Toxicology testing by the [facility] is an aid to medical diagnosis and treatment of patients. No documented chain of custody was maintained. Results are intended to be used for clinical purposes only. Elizabeth Hernandez MD LAB - URINE CHEMISTR Y ORDERABLES Performing Organization Address City/[facility]/ZIP Co de Phone Number [address] [phone] * ALBUMIN BLOOD (08/28/2016 3:59 AM CDT) Albumin 3.9 3.4 - 5.0 g/dL [facility] Blood specimen (specimen) BLOOD SPECIMEN / Unknown 08/28/2016 3:59 AM CDT 08/28/2016 4:27 AM CDT Crescencio Carney MD LAB - CHEMISTRY MARSHAL MEDEROS Performing Organization Address City/[facility]/ZIP Co de Phone Number [address] [place] [phone] * GLUCOSE - POINT OF CARE (AMB) [facility] (08/27/2016 7:37 PM CDT) Only the most recent of4 resultswithin the time period is included. Elizabeth Hernandez MD LAB - POINT OF CARE ORDERABLES [facility] * GLUCOSE ACCUCHECK (08/27/2016 7:37 PM CDT) Only the most recent of3 resultswithin the time period is included. [facility] Signature Glucose, Fingerstick 109 70-115mg/d L mg/dL [facility] Comment:Combiner: LUCIO Matamoros 08/27/2016 7:37 PM CDT Zulma Quijano MD LAB - CHEMISTRY ORDByron MEDEROS Performing Organization Address City/[facility]/ZIP Co de Phone Number [facility] ([facility]) * MRI ANGIO NECK W CONTRAST (04/13/2015 11:02 AM DIGITAL SALES MANAGER) Anatomical Region Laterality Modality Head Other Impressions 04/13/2015 3:53 PM DIGITAL SALES MANAGER IMPRESSION: 1. There is no evidence of [...] 3:53 PM . Narrative 04/13/2015 3:53 PM DIGITAL SALES MANAGER EXAMINATION: 1. Magnetic resonance imaging (MRI) of the brain without contrast 2. Magnetic resonance angiography (MRA) of the head without contrast 3. MRA of the neck without and with contrast HISTORY: Truncal ataxia, nystagmus and difficulty with balance, concerning for pontine stroke. TECHNIQUE: MRI of the brain was performed without contrast according to standard protocol. MRA of the xfbowf-tn-Vsxjxi was performed using a pajw-ju-smakbs technique without contrast. Finally, contrast-enhanced MRA of [...] contrast according tostandard protocol. MRA of the kqznjz-qk-Buqfzj was performed using nuuat-hv-pcmikx technique without contrast. Finally, contrast-enhanced MRAof the [...] BRAIN ARTERIAL WO CONT (04/13/2015 11:02 AM DIGITAL SALES MANAGER) Anatomical Region Laterality Modality Head Other Impressions 04/13/2015 3:53 PM DIGITAL SALES MANAGER IMPRESSION: 1. There is no evidence of [...] 3:53 PM . Narrative 04/13/2015 3:53 PM DIGITAL SALES MANAGER EXAMINATION: 1. Magnetic resonance imaging (MRI) of the brain without contrast 2. Magnetic resonance angiography (MRA) of the head without contrast 3. MRA of the neck without and with contrast HISTORY: Truncal ataxia, nystagmus and difficulty with balance, concerning for pontine stroke. TECHNIQUE: MRI of the brain was performed without contrast according to standard protocol. MRA of the bbtggr-js-Uwnckl was performed using a vktq-jf-taebou technique without contrast. Finally, contrast-enhanced MRA of [...] contrast according tostandard protocol. MRA of the iwzqgi-vw-Ddwnyf was performed using ijlfr-hj-oyxamt technique without contrast. Finally, contrast-enhanced MRAof the [...] (ABNORMAL) BLOOD GASES ART (04/11/2015 6:22 AM DIGITAL SALES MANAGER) pH Arterial 7.38 7.35 - 7.45 [facility] pCO2 Arterial 36 35 - 45 mmHg [facility] pO2 Arterial 134(H) 77 - 101 mmHg [facility] HCO3 Arterial 20.9(L) 22.0 - 26.0 mmol/L [facility] TCO2 Arterial 22.0(L) 25.0 - 29.0 mmol/L [facility] Base Excess Arterial -3.6(L) -2.0 - 2.0 mmol/L [facility] Hemoglobin Arterial 12.5(L) 13.5 - 17.5 g/dL [facility] Oxyhemoglobin Arterial 94.5(L) 95.0 - 100.0 % [facility] Carboxyhemoglobin 3.5(H) 0.0 - 3.0 % [facility] Methemoglobin 0.3 0.0 - 2.0 % [facility] FI O2 Arterial 20.0 % [facility] Blood specimen (specimen) BLOOD SPECIMEN / Unknown 04/11/2015 6:22 AM DIGITAL SALES MANAGER 04/11/2015 6:22 AM DIGITAL SALES MANAGER Narrative [facility] - 04/11/2015 6:26 AM DIGITAL SALES MANAGER FIO2->20 Naa Reyna MD LAB - BLOOD GASES OR DERABLES [address] [phone] Care Teams Recycling Operations Manager Relationship Specialty Start Date End Date Dany Monsivais MD [address] [place] [phone] PCP - General Family Medicine 11/18/23 Elizabeth Sullivan, ALFRED Administrative Support Assoc 10/14/17
--- OUTSIDE RECORDS SUMMARY | 2024-08-09 01:07 | XMS_ITS | Encounter Summary ---
Author Organization [facility] - [facility] Address [address] [place] [address] Care Team Providers Care Project Buyer Name Role Phone Frank Toure MD Unavailable Joyce Luevano NP Primary Care Provider Unavaila Marielena Adame MD Primary Care Provider [phone] Encounter Details Date Type Department Care Team (Late st Contact Info) Description 06/16/2022 MyCElliptict Message Enc [facility] Medical Group Family Medicine - [address] [address] Joyce Luevano, CLOTH CLASSER Bi Tabor Social History Tobacco Use Types [...] Coronavirus/COVID-19? No / Unsure 06/17/2022 10:38 AM GRINDER SET UP OPERATOR documented as of this encounter Functional [...] in writing. She states to fax to [phone]. Will send letter to them. DER SET UP OPERATOR * Yonatan Rodriguez RN - 06/16/2022 12:50 PM CST Please see note. Thanks DER SET UP OPERATOR documented in this encounter Plan of Treatment Not on file documented as of this encounter Visit Diagnoses Not on filedocumented in this encounter Care Teams Project Buyer Relationship Specialty Start Date End Date Joyce Luevano NP [address] [place] [address] PCP - General NURSE PRACTITIONER 01/14/20 10/26/23 Marielena Smallwood MD [address] [place] [address] PCP - General FAMILY PRACTICE 10/27/23 Frank Toure MD [address] [place] [address] Chivo Plans Examiner CARDIOVASCULAR DISEASE 05/30/16 documented as of this encounter
--- OUTSIDE RECORDS SUMMARY | 2024-08-09 01:07 | XMS_ITS | Clinical Summary ---
Author Organization [facility] Address [address] [place] [address] Care Team Providers Care Grid Maker Name Role Phone Frank Toure MD Unavailable Marielena Smallwood MD Primary Care Provider [phone] Allergies Active Allergy Reactions Criticality Noted Date Comments Clonazepam Hallucinations Medium 12/09/2021 hallucinations Medications vitamin B-1 100 MG TabIndications:Seiz ure ([facility]) Take 1 tablet (100 mg [...] x 7.5 MG/0.1ML Liquid Therapy PackIndications:Tara llanes ([facility]) 2 sprays by Nasal route as needed. [...] No evidence of infection Urine cultures from [facility] last month were negative growth as [...] infection. Antibiotics not indicated Osteoporosis 11/22/2018 Seizure ([facility]) 08/25/2017 Cerebrovascular accident (CV A) due to thrombosis of right posterior cerebral artery ([facility]) 02/20/2016 Assessment & Plan (11/29/2018 9:36 PM CDT): Patient has residual cognitive difficulties I think beyond with patient and her family have recognized in the past however as noted in adequate medication intake her side effects may be causing deterioration. Hypertension 07/24/2015 Hyperlipidemia 04/14/2015 Assessment & Plan (11/29/2018 9:36 PM CDT): Continue home meds and monitor Seizure ([facility]) 04/11/2015 Assessment & Plan (11/29/2018 9:39 PM CDT): History of generalized seizure disorder and being managed by a neurologist in [facility] however there is confusion from family [...] Comments Blood Pressure 128/72 06/17/2022 10:46 AM LOAD MIXER Pulse 95 06/17/2022 10:46 AM LOAD MIXER Temperature 36.4 C (97.6 F) 06/07/2022 12:31 PM LOAD MIXER Respiratory Rate 18 06/17/2022 10:4 6 AM LOAD MIXER Oxygen Saturation 98% 06/17/2022 10: 46 AM LOAD MIXER Inhaled Oxygen Concentration - - Weight 59 kg (130 lb) 06/17/2022 10:46 AM LOAD MIXER stated - unable to weigh Height 180.3 cm (5' 11 ) 06/17/2022 10: 46 AM LOAD MIXER Body Mass Index 18.13 06/17/2022 10:46 AM LOAD MIXER Plan of Treatment Health Maintenance Due Date Last Done Comments Annual Physical 01/27/1963 Zoster Vaccines (1 of 2) 2011 RSV Immunization or 60+ Years (1 - Risk 60-74 years 1-dose series) 2021 COVID-19 Vaccine ( - season) 2024 04/06/2021, 07/02/2020, 06/11/2020 Influenza Adult (#1) 2024 02/01/2022, 03/16/2021, 03/07/2020, Additional history exists PHQ-2 (Physician [place]) 05/30/2024 Colorectal Cancer Screening Colonoscopy (10 Years) [...] HEPATITIS C ANTIBODY Routine 06/23/2016 11:13 AM LOAD MIXER from Last 3 Months or Most Recently Relevant to Health Maintenance Results * Colonoscopy (11/22/2016 12:00 AM CDT) 11/22/2016 11/22/2016 Narrative [facility] TO EPIC CONVERSION - 11/22/2016 12:00 AM CDT Documented hx of procedure Procedure Note Jerica Tsai MD - 04/02/2018 Documented hx of procedure us Generic Neris Tsai MD GI PROCEDURE ORDERABLES Final Result Performing Organization Address City/[facility] Co de Phone Number [facility] TO EPIC CONVERSION * HEPATITIS C ANTIBODY (06/23/2016 11:13 AM LOAD MIXER) HEPATITIS C AB NON-REACTIVE TEST[place] [address] NR [facility] TO EPIC CONVERSION 06/23/2016 11:1 3 AM LOAD MIXER 06/23/2016 11:13 AM LOAD MIXER Narrative [facility] TO EPIC CONVERSION - 06/24/2016 6:41 PM LOAD MIXER Result Communication: No patient communication needed at this time us Misael Maradiaga DO LABORATORY Final Result [facility] TO EPIC CONVERSION from Last 3 Months or Most Recently Relevant to Health Maintenance Insurance Advance Directives Documents on File Type Date Recorded Patient Product Design Engineer Expl anation Advance Directives and Living Will 10/17/2017 SADVANCE DIRECTIVES * Full Code (Latest Code Status on File) Date Activated Date Inactivated Comments 12/04/2018 1:44 PM 12/12/2018 3:19 PM * Full Code Date Activated Date Inactivated Comments 11/29/2018 6:21 PM 12/04/2018 1:38 PM Care Teams Grid Maker Relationship Specialty Start Date End Date Marielena Smallwood MD [address] [place] [address] PCP - General FAMILY PRACTICE 10/27/23 Frank Toure MD [address] [place] [address] [place] Graining Operator CARDIOVASCULAR DISEASE 05/30/16
--- OUTSIDE RECORDS SUMMARY | 2024-08-09 01:07 | XMS_ITS | Encounter Summary ---
Author Organization [facility] - [facility] Address [address] [place] [address] Care Team Providers Care Building Operator Name Role Phone Frank Toure MD Unavailable Joyce Luevano NP Primary Care Provider Unavaila Marielena Adame MD Primary Care Provider [phone] Encounter Details Date Type Department Care Team (Late st Contact Info) Description 03/08/2022 What the Trendt Message Enc [facility] Medical Group Family Medicine - [address] [address] Joyce Luevano, BOUCHRA Vascular doctor [...] on filedocumented in this encounter Care Teams Building Operator Relationship Specialty Start Date End Date Joyce Luevano NP [address] [place] [address] PCP - General NURSE PRACTITIONER 01/14/20 10/26/23 Marielena Smallwood MD [address] [place] [address] PCP - General FAMILY PRACTICE 10/27/23 Frank Toure MD [address] [place] [address] Chivo Doctor Of Radiology CARDIOVASCULAR DISEASE 05/30/16 documented as of this encounter
--- OUTSIDE RECORDS SUMMARY | 2024-08-09 01:07 | XMS_ITS | Encounter Summary ---
Author Organization [facility] - [facility] Address [address] [place] [address] Care Team Providers Care Polymerization Engineer Name Role Phone Frank Toure MD Unavailable Joyce Luevano NP Primary Care Provider Unavaila Marielena Adame MD Primary Care Provider [phone] Encounter Details Date Type Department Care Team (Late st Contact Info) Description 07/06/2022 MyCTaifatecht Message Enc [facility] Medical Group Family Medicine - [address] [address] Joyce Luevano, TRACTOR OPERATOR LASER LEVELING Bi Tabor Social History Tobacco Use Types [...] Coronavirus/COVID-19? No / Unsure 06/17/2022 10:38 AM DOOR TO DOOR LEAD GENERATION documented as of this encounter Functional Status [...] 1:34 PM CST Please see note. Thanks TO DOOR LEAD GENERATION * Yonatan Rodriguez RN - 07/07/2022 8:09 AM CST Please see note. Thanks TO DOOR LEAD GENERATION documented in this encounter Plan of Treatment Not on file documented as of this encounter Visit Diagnoses Not on filedocumented in this encounter Care Teams Polymerization Engineer Relationship Specialty Start Date End Date Joyce Luevano NP [address] [place] [address] PCP - General NURSE PRACTITIONER 01/14/20 10/26/23 Marielena Smallwood MD [address] [place] [address] PCP - General FAMILY PRACTICE 10/27/23 [place] [address] [place] [address] Chivo Shoe Lay Out Planner CARDIOVASCULAR DISEASE 05/30/16 documented as of this encounter
--- OUTSIDE RECORDS SUMMARY | 2024-08-09 01:07 | XMS_ITS | Encounter Summary ---
Author Organization [facility] - [facility] Address [address] [place] [address] Care Team Providers Care Assistant Toddler Teacher Name Role Phone Frank Toure MD Unavailable Joyce Luevano NP Primary Care Provider Unavaila Marielena Adame MD Primary Care Provider [phone] Encounter Details Date Type Department Care Team (Late st Contact Info) Description 02/23/2022 MyChart Message Enc [facility] Medical Group Family Medicine - [address] [address] Joyce Luevano, BOUCHRA Bi updated [...] 10:33 AM CDT These updated through the [employer] system. documented in this encounter Plan of Treatment Not on file documented as of this encounter Visit Diagnoses Not on filedocumented in this encounter Care Teams Assistant Toddler Teacher Relationship Specialty Start Date End Date Joyce Luevano NP [address] [place] [address] PCP - General NURSE PRACTITIONER 01/14/20 10/26/23 Marielena Smallwood MD [address] [place] [address] PCP - General FAMILY PRACTICE 10/27/23 Frank Toure MD [address] [place] [address] Chivo Dispatcher Refinery CARDIOVASCULAR DISEASE 05/30/16 documented as of this encounter
--- OUTSIDE RECORDS SUMMARY | 2024-08-09 01:07 | XMS_ITS | Encounter Summary ---
Author Organization [facility] - [facility] Address [address] [place] [address] Care Team Providers Care Complex Manager Name Role Phone Frank Toure MD Unavailable Joyce Luevano NP Primary Care Provider Unavaila Marielena Adame MD Primary Care Provider [phone] Encounter Details Date Type Department Care Team (Late st Contact Info) Description 02/23/2022 MyCSoftoCoupont Message Enc [facility] Medical Group Family Medicine - [address] [address] Joyce Luevano, REMOVABLE PROSTHODONTIST Bi Tabor toenail Social History Tobacco Use [...] on filedocumented in this encounter Care Teams Complex Manager Relationship Specialty Start Date End Date Joyce Luevano NP [address] [place] [address] PCP - General NURSE PRACTITIONER 01/14/20 10/26/23 Marielena Smallwood MD [facility] [place] [address] PCP - General FAMILY PRACTICE 10/27/23 Frank Toure MD [address] [place] [address] Chivo Finish Rolls Operator CARDIOVASCULAR DISEASE 05/30/16 documented as of this encounter
--- OUTSIDE RECORDS SUMMARY | 2024-08-09 01:08 | XMS_ITS | Encounter Summary ---
Author Organization [facility] - [facility] Address [address] [place] [address] Care Team Providers Care Soaking Pits Supervisor Name Role Phone Frank Toure MD Unavailable Joyce Luevano NP Primary Care Provider Unavaila Marielena Adame MD Primary Care Provider [phone] Encounter Details Date Type Department Care Team (Late st Contact Info) Description 03/09/2022 Fusebillt Message Enc [facility] Medical Group Family Medicine - [address] [address] Joyce Luevano, CHILD HEALTH ASSOCIATE Update on Bi Tabor Social History Tobacco [...] in this encounter Progress Notes * Yonatan Rodrgiuez RN - 03/09/2022 10:09 AM CDT FYI * Yonatan Rodriguez RN - 03/09/2022 8:55 AM CDT See note. Thanks documented in this encounter Plan of Treatment Not on file documented as of this encounter Visit Diagnoses Not on filedocumented in this encounter Care Teams Soaking Pits Supervisor Relationship Specialty Start Date End Date Joyce Luevano NP [address] [place] [address] PCP - General NURSE PRACTITIONER 01/14/20 10/26/23 Marielena Smallwood MD [address] [place] [address] PCP - General FAMILY PRACTICE 10/27/23 Frank Toure MD [address] [place] [address] Chivo Tap Builder CARDIOVASCULAR DISEASE 05/30/16 documented as of this encounter
--- OUTSIDE RECORDS SUMMARY | 2024-08-09 01:08 | XMS_ITS | Encounter Summary ---
Author Organization [facility] - [facility] Address [address] [place] [address] Care Team Providers Care Box Car Checker Name Role Phone Frank Toure MD Unavailable Joyce Luevano NP Primary Care Provider Unavaila Marielena Adame MD Primary Care Provider [phone] Encounter Details Date Type Department Care Team (Late st Contact Info) Description 03/13/2022 KeraFASTt Message Enc [facility] Medical Group Family Medicine - [address] [address] Joyce Luevano, SUPERVISOR LIVESTOCK YARD Bi Tabor Update Social History Tobacco Use [...] on filedocumented in this encounter Care Teams Box Car Checker Relationship Specialty Start Date End Date Joyce Luevano NP [address] [place] [address] PCP - General NURSE PRACTITIONER 01/14/20 10/26/23 Marielena Smallwood MD [address] [place] [address] PCP - General FAMILY PRACTICE 10/27/23 Frank Toure MD [address] [place] [address] Chivo Work Counselor CARDIOVASCULAR DISEASE 05/30/16 documented as of this encounter
--- OUTSIDE RECORDS SUMMARY | 2024-08-09 01:08 | XMS_ITS | Encounter Summary ---
Author Organization [facility] - [facility] Address [address] [place] [address] Care Team Providers Care Screw Cutter Name Role Phone Frank Toure MD Unavailable Joyce Luevano NP Primary Care Provider Unavaila Marielena Adame MD Primary Care Provider [phone] Encounter Details Date Type Department Care Team (Late st Contact Info) Description 05/11/2022 Replenisht Message Enc [facility] Medical Group Family Medicine - [address] [address] Joyce Luevano, BOUCHRA Pat appointment [...] on filedocumented in this encounter Care Teams Screw Cutter Relationship Specialty Start Date End Date Joyce Luevano NP [address] [place] [address] PCP - General NURSE PRACTITIONER 01/14/20 10/26/23 Marielena Smallwood MD [address] [place] [address] PCP - General FAMILY PRACTICE 10/27/23 Frank Toure MD [address] [place] [address] Newell Hand Chain Maker CARDIOVASCULAR DISEASE 05/30/16 documented as of this encounter
--- OUTSIDE RECORDS SUMMARY | 2024-08-09 01:08 | XMS_ITS | Encounter Summary ---
Author Organization [facility] - [facility] Address [address] [place] [address] Care Team Providers Care Chha Name Role Phone Frank Toure MD Unavailable Joyce Luevano NP Primary Care Provider Unavaila Marielena Adame MD Primary Care Provider [phone] Encounter Details Date Type Department Care Team (Late st Contact Info) Description 03/15/2022 Mobile Theoryt Message Enc [facility] Medical Group Family Medicine - [address] [address] Joyce Luevano, AUTOMOBILE ACCESSORIES SALESPERSON Bi Tabor Social History Tobacco Use Types [...] on filedocumented in this encounter Care Teams Chha Relationship Specialty Start Date End Date Joyce Luevano NP [address] [place] [address] PCP - General NURSE PRACTITIONER 01/14/20 10/26/23 Marielena Smallwood MD [address] [place] [address] PCP - General FAMILY PRACTICE 10/27/23 Frank Toure MD [address] [place] [address] Chivo Drapery Estimator CARDIOVASCULAR DISEASE 05/30/16 documented as of this encounter
--- NOTE | 2024-08-09 01:51 | ED_ITS ---
HPI - General Adult General Chief complaint: Unspecified Stated complaint: needs NH o2 supply Time Seen by Provider: 08/09/24 00:48 History of Present Illness HPI narrative: Patient is a 64-year-old male trach dependent presents to the emergency department this evening from his nursing facility shortly after he arrived from [facility] where he was recently admitted. Per EMS report, patient's correction, [facility] states that they did not have the appropriate equipment to care for him and his oxygen need, stating that they do not have the condenser that they need. Otherwise, patient is completely asymptomatic and has no concerns at this time. Related Data Home Medications ?Medication ?Instructions ?Recorded ?Confirmed ?Last Taken ?Type metoprolol tartrate 25 mg tablet 25 mg feeding tube BID 12/18/22 03/30/24 Unknown History polyethylene glycol 3350 17 17 g feeding tube DAILY PRN 12/18/22 03/30/24 Unknown History gram/dose oral powder Constipation bisacodyl 10 mg rectal suppository 10 mg RECTAL DAILY PRN Constipation 02/11/23 03/30/24 Unknown History sennosides 8.6 mg tablet (senna) 8.6 mg feeding tube BID 02/11/23 03/30/24 Unknown History guaifenesin 100 mg/5 mL oral liquid 300 mg feeding tube BID PRN Cough 07/08/23 03/30/24 Unknown History magnesium hydroxide 400 mg/5 mL 30 ml PO HS PRN Constipation 12/13/23 03/30/24 Unknown History oral suspension (Milk of Magnesia) artificial tears solution eye drops 1 drp ophthalmic (eye) PRN PRN Dry 02/10/24 03/30/24 Unknown History Eye(S) atorvastatin 40 mg tablet 40 mg PO HS 02/10/24 03/30/24 Unknown History calcium carbonate 500 mg/5 mL (as 1,250 mg PO Q6H PRN Heartburn 02/10/24 03/30/24 Unknown History calcium carb 1,250 mg/5 mL) oral suspension clobazam 10 mg tablet 10 mg feeding tube DAILY 02/10/24 03/30/24 Unknown History famotidine 20 mg tablet 20 mg feeding tube BID 02/10/24 03/30/24 Unknown History folic acid 1 mg tablet 1 mg feeding tube DAILY 02/10/24 03/30/24 Unknown History ipratropium 0.5 mg-albuterol 3 mg 3 ml inhalation Q6H PRN Shortness 02/10/24 03/30/24 Unknown History (2.5 mg base)/3 mL nebulization Of Breath soln lacosamide 10 mg/mL oral solution 200 mg feeding tube BID 02/10/24 03/30/24 Unknown History levetiracetam 100 mg/mL oral 1,500 mg feeding tube BID 02/10/24 03/30/24 Unknown History solution magnesium citrate (Citroma oral 296 ml PO DAILY PRN Constipation 02/10/24 03/30/24 Unknown History solution) thiamine HCl (vitamin B1) 100 mg 100 mg feeding tube DAILY 02/10/24 03/30/24 Unknown History tablet valproic acid (as sodium salt) 250 1,250 mg feeding tube QID 02/10/24 03/30/24 Unknown History mg/5 mL oral solution acetaminophen 650 mg/20.3 mL oral 650 mg feeding tube Q4H PRN Pain 03/30/24 1106/22 Unknown History suspension (Scale Score 1-3) apixaban 5 mg tablet (Eliquis) 5 mg feeding tube BID 03/30/24 03/30/24 Unknown History aspirin 81 mg chewable tablet 81 mg feeding tube DAILY 03/30/24 03/30/24 Unknown History Allergies Allergy/AdvReac Type Severity Reaction Status Date / Time clonazepam Allergy Unknown Unknown Verified 07/13/24 23:10 Review of Systems Review of Systems: All systems are reviewed and are negative unless stated otherwise in the HPI. [facility] Past Medical History Medical History Deep venous thrombosis of upper extremity Benign prostatic hyperplasia Cerebrovascular accident Residual expressive aphasia, dysphagia, and left-sided weakness. Chronic obstructive pulmonary disease Esophageal diverticulum Gastroparesis Iron deficiency anemia Vascular dementia with psychotic disturbance Seizure disorder Surgical History Surgical History History of gastrostomy tube placement History of tracheostomy History of left above knee amputation Family History Family History Other Unknown family medical history Social History Social History Social History: Surrogate medical decision maker: Adriane Hilliard, sibling. Code status: Full code. 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 HEENT: PERRL, no rhinorrhea, no post nasal drip, oropharynx clear. Neck: Tracheostomy with trach collar in place, no JVD, no lymphadenopathy. Cardiovascular: Regular rate and rhythm, no murmurs, rubs or gallops, no peripheral edema. Respiratory: Clear to auscultation bilaterally, no tachypnea, no wheezing, no rhonchi, no rubs, no respiratory distress. Abdomen: Soft, nontender, nondistended, no rebound, no guarding, no peritoneal signs. Musculoskeletal: No joint swelling or deformity, normal muscle tone. Skin: No rashes or petechia, no signs of infection. Psychiatric: Alert and oriented, normal behavior and judgment for situation. Neurological: Alert and oriented to person, place, and time. Follows all commands. No focal deficits, speech is clear and fluent. Course Vital Signs Vital signs: Vital Signs Pulse Rate 70 08/09/24 00:39 Respiratory Rate 18 08/09/24 00:39 Blood Pressure 155/80 H 08/09/24 00:39 Pulse Oximetry 100 08/09/24 00:39 Oxygen Delivery Trach Collar 08/09/24 00:39 Pulse Rate 76 08/09/24 02:58 Respiratory Rate 18 08/09/24 02:58 Blood Pressure 164/79 H 08/09/24 02:58 Pulse Oximetry 100 08/09/24 02:58 Oxygen Delivery Trach Collar 08/09/24 00:39 Medical Decision Making MDM Narrative Medical decision making narrative: The patient was evaluated by myself in the emergency department. History is obtained from EMS report who is an independent historian and physical exam was performed. External medical records were reviewed at this time. Differential diagnosis considerations include equipment malfunction, missing Equipment. Comorbidities impacting this visit include trach dependent. I have evaluated and discussed social determinants of health with the patient that could potentially impact subsequent diagnosis and treatment plans. On repeat assessment of the patient, reevaluation revealed that the patient is doing well and is in no acute distress. Patient symptoms have remained stable since he arrived to our emergency department. Repeat vital signs were all reviewed and noted to be stable. Patient is currently pending clinical care coordination assessment for missing Equipment needed prior to discharge back to correction facility. Vital Signs Vital Signs: Vital Signs Pulse Rate 70 08/09/24 00:39 Respiratory Rate 18 08/09/24 00:39 Blood Pressure 155/80 H 08/09/24 00:39 Pulse Oximetry 100 08/09/24 00:39 Oxygen Delivery Trach Collar 08/09/24 00:39 Pulse Rate 76 08/09/24 02:58 Respiratory Rate 18 08/09/24 02:58 Blood Pressure 164/79 H 08/09/24 02:58 Pulse Oximetry 100 08/09/24 02:58 Oxygen Delivery Trach Collar 08/09/24 00:39 Discharge Plan Discharge Clinical Impression: Tracheostomy mechanical complication Patient Disposition: SNF Condition: Stable Additional Instructions: Follow-up with your family doctor within the next 3-5 days. Return to the emergency department if any new or worsening symptoms develop. Patient Language: Georgian Prescriptions: No Action bisacodyl 10 mg Suppository 10 mg RECTAL DAILY PRN (Reason: Constipation) Rx Instructions: if no results for MOM sennosides [senna] 8.6 mg Tablet 8.6 mg feeding tube BID guaifenesin 100 mg/5 mL liquid 300 mg feeding tube BID PRN (Reason: Cough) magnesium hydroxide [Milk of Magnesia] 400 mg/5 mL Suspension 30 ml PO HS PRN (Reason: Constipation) Rx Instructions: If no BM in 3 days polyethylene glycol 3350 17 gram/dose powder 17 g feeding tube DAILY PRN (Reason: Constipation) metoprolol tartrate 25 mg tablet 25 mg feeding tube BID atorvastatin 40 mg tablet 40 mg PO HS ipratropium-albuterol 0.5 mg-3 mg(2.5 mg base)/3 mL solution for nebulization 3 ml INHALATION Q6H PRN (Reason: Shortness Of Breath) artificial tears solution Drops 1 drp OPHTHALMIC (EYE) PRN PRN (Reason: Dry Eye(S)) Rx Instructions: instill 1 drop per eye as needed for dry eye thiamine HCl (vitamin B1) 100 mg Tablet 100 mg feeding tube DAILY famotidine 20 mg tablet 20 mg feeding tube BID valproic acid (as sodium salt) 250 mg/5 mL solution 1,250 mg feeding tube QID magnesium citrate [Citroma] Solution 296 ml PO DAILY PRN (Reason: Constipation) Rx Instructions: if no results from enema folic acid 1 mg tablet 1 mg feeding tube DAILY levetiracetam 100 mg/mL solution 1,500 mg feeding tube BID calcium carbonate 500 mg/5 mL (1,250 mg/5 mL) Suspension 1,250 mg PO Q6H PRN (Reason: Heartburn) lacosamide 10 mg/mL solution 200 mg feeding tube BID clobazam 10 mg tablet 10 mg feeding tube DAILY Eliquis 5 mg Tablet 5 mg feeding tube BID aspirin 81 mg Tablet,Chewable 81 mg feeding tube DAILY acetaminophen 650 mg/20.3 mL Suspension 650 mg feeding tube Q4H PRN (Reason: Pain (Scale Score 1-3)) meropenem 1 gram Recon Soln 1 g IV Q8H Qty: 8 0RF Follow-up/Referrals: Lauro,MD Burke [Primary Care Provider] - 3 Days Time of Disposition: 03:48
--- NOTE | 2024-08-09 07:40 | PC.NURSE ---
Spoke with ALFRED Witt care coordination regarding patient. Miryam aware of patient and has call out to her contact at [facility] to help facilitate patients return to the facility.
== END 2024-08-09 10:25 ==
PROVIDERS: Emergency Provider Emergency Medicine; PCP Internal Medicine
DX: Z02.89 Encounter for other administrative examinations (principal); I69.920 Aphasia following unspecified cerebrovascular disease; I69.991 Dysphagia following unspecified cerebrovascular disease; I69.954 Hemiplegia and hemiparesis following unspecified cerebrovascular disease affecting left non-dominant side; F01.52 Vascular dementia, unspecified severity, with psychotic disturbance; G40.909 Epilepsy, unspecified, not intractable, without status epilepticus; J44.9 Chronic obstructive pulmonary disease, unspecified; K31.84 Gastroparesis; N40.0 Benign prostatic hyperplasia without lower urinary tract symptoms; D50.9 Iron deficiency anemia, unspecified; Z99.81 Dependence on supplemental oxygen; Z93.1 Gastrostomy status; Z43.0 Encounter for attention to tracheostomy; Z86.718 Personal history of other venous thrombosis and embolism; Z89.612 Acquired absence of left leg above knee; Z87.891 Personal history of nicotine dependence; Z79.01 Long term (current) use of anticoagulants; Z79.82 Long term (current) use of aspirin; Z79.899 Other long term (current) drug therapy
CPT/HCPCS: 99284

== ENCOUNTER 2024-08-15 02:25 | Emergency (ER) | payer OTHER, SELFPAY ==
[2024-08-15] VITALS (7 sets, daily range): BP systolic 141–163; BP diastolic 83–99; PULSE 68–82; RESP 16–20; TEMP 36.3; O2SAT 96–100
--- NOTE | ~2024-08-15 | XR_ITS ---
PA, oblique, and lateral views of the right index finger CLINICAL HISTORY: Pain FINDINGS: No acute fracture or dislocation seen. Joint spaces are intact. Soft tissues are unremarkab le. IMPRESSION: No significant abnormality seen. Reviewed, dictated and finalized at location .
--- OUTSIDE RECORDS SUMMARY | 2024-08-15 02:36 | XMS_ITS | Encounter Summary ---
Author Organization [facility] Address [facility] [place] [address] Care Team Providers Care Housing Liaison Name Role Phone Frank Toure MD Unavailable Marielena Smallwood MD Primary Care Provider [phone] Encounter Details Date Type Department Care Team (Late st Contact Info) Description 08/14/2024 [facility] Message Enc [facility] Family Medicine [facility] [address] [place] [phone] Marielena Smallwood MD [address] [place] [id number] Use of Jardiance Social History Tobacco Use Types Packs/Day Years [...] filedocumented in this encounter Care Teams Housing Liaison Relationship Specialty Start Date End Date Marielena Smallwood MD [address] [place] [id number] PCP - General FAMILY PRACTICE 10/27/23 Frank Toure MD [address] [place] [id number] [place] [employer] Worker Helper CARDIOVASCULAR DISEASE 05/30/16 documented as of this encounter
--- OUTSIDE RECORDS SUMMARY | 2024-08-15 02:36 | XMS_ITS ---
U rine pH is affected by diet, medications, systemic acid-base disturbances, and renal tubular function. pH may affect urinary stone formation. For example, urine pH below 6.0 may help reduce the tendency for calcium phosphate stones and pH greater than 6.0 may reduce the tendency for uric acid stone formation. Source: [facility] Current Interpretive Data was last revised on 2017 Protein, ur ql Trace Negative [facility] Glucose, ur ql Negative Negative [facility] Ketones, ur Negative Negative [facility] Bilirubin, ur Negative Negative [facility] Blood, ur Negative Negative [facility] Urobilinogen, ur 2.0(A) <2.0 mg/dL [facility] Nitrite, ur Negative Negative [facility] Leukocyte esterase, ur Negative Negative [facility] UA reflex comment Reflex conditions for microscopic UA and culture not met. [facility] Urine, in and out catheter 06/12/2024 2:38 PM SAFETY SPECIALIST 06/12/2024 3:47 PM SAFETY SPECIALIST us Shakila Jung MD LAB MICROBIOLOGY - GENERAL ORDERABLES Final Result [facility] [place] [address] * (ABNORMAL) Differential, auto (06/12/2024 2:23 PM SAFETY SPECIALIST) Neutrophil abs 9.9(H) 1.5 - 6.5 K/cumm Imm gran abs 0.1 0.0 - 0.1 K/cumm [facility] Lymphocyte abs 2.5 0.8 - 3.3 K/cumm [facility] Monocyte abs 1.0(H) 0.2 - 0.8 K/cumm [facility] Eosinophil abs 0.2 0.0 - 0.5 K/cumm [facility] Basophil abs 0.0 0.0 - 0.1 K/cumm [facility] Neutrophil pct 72.4 % [facility] Comment: Interpretive Data Percent cell count reference ranges are not reported, since discordance with absolute values may lead to misinterpretation of CBC data. Current Interpretive Data was last revised on 2017. Imm gran pct 0.4 % [facility] Comment: Interpretive Data Percent cell count reference ranges are not reported, since discordance with absolute values may lead to misinterpretation of CBC data. Current Interpretive Data was last revised on 2017. Lymphocyte pct 18.4 % [facility] Comment: Interpretive Data Percent cell count reference ranges are not reported, since discordance with absolute values may lead to misinterpretation of CBC data. Current Interpretive Data was last revised on 2017. Monocyte pct 7.2 % [facility] Comment: Interpretive Data Percent cell count reference ranges are not reported, since discordance with absolute values may lead to misinterpretation of CBC data. Current Interpretive Data was last revised on 2017. Eosinophil pct 1.5 % [facility] Comment: Interpretive Data Percent cell count reference ranges are not reported, since discordance with absolute values may lead to misinterpretation of CBC data. Current Interpretive Data was last revised on 2017. Basophil pct 0.1 % [facility] Comment: Interpretive Data Percent cell count reference ranges are not reported, since discordance with absolute values may lead to misinterpretation of CBC data. Current Interpretive Data was last revised on 2017. Blood 06/12/2024 2:23 PM SAFETY SPECIALIST 06/12/2024 4:04 PM SAFETY SPECIALIST us Shakila Jung MD LAB BLOOD ORDERABL ES Final Result [facility] [place] [address] * (ABNORMAL) CBC with auto differential (06/12/2024 2:23 PM SAFETY SPECIALIST) WBC 13.7(H) 3.8 - 9.9 K/cumm Hgb 14.1 13.0 - 17.5 g/dL [facility] Hct 42.0 38.9 - 50.3 % [facility] Plt 171 150 - 400 K/cumm [facility] MPV 13.2(H) 9.1 - 12.3 fL [facility] RBC 4.36 4.30 - 5.80 M/cumm [facility] MCV 96.3 81.3 - 96.4 fL [facility] MCH 32.3 27.1 - 33.3 pg [facility] MCHC 33.6 32.3 - 35.7 g/dL [facility] RDW CV 13.5 11.1 - 14.9 % [facility] RDW SD 48.5(H) 35.7 - 48.1 fL [facility] NRBC abs 0.00 0.00 - 0.01 K/cumm [facility] Blood 06/12/2024 2:23 PM SAFETY SPECIALIST 06/12/2024 4:04 PM SAFETY SPECIALIST us Shakila Jung MD LAB BLOOD ORDERABL ES Final Result Performing Organization Address [facility] de Phone Number [facility] [place] [address] * Troponin I high-sensitivity 2-hour (06/12/2024 1:56 PM SAFETY SPECIALIST) Trop I hs 10 <=35 ng/L Comment: Interpretive Data For further hscTnI resources including the diagnostic algorithm and an aid in interpretation, copy and paste this link: https://bjhlab.testcatalog.org/show/hsTrop-[email or web address] Current Interpretive Data last revised 2019. Trop I hs delta 1 ng/L [facility] Trop I hs interp Insignificant [facility] Blood 06/12/2024 1:56 PM SAFETY SPECIALIST 06/12/2024 2:22 PM SAFETY SPECIALIST us Shakila Jung MD LAB BLOOD ORDERABL ES Final Result Performing Organization Address [facility] Co de Phone Number [facility] [place] [address] * CT Abdomen Pelvis W Contrast (06/12/2024 12:22 PM SAFETY SPECIALIST) Anatomical Region Laterality Modality Body N/A Computed Tomogra phy 06/12/2024 12:4 9 PM SAFETY SPECIALIST Impressions 06/12/2024 12:49 PM SAFETY SPECIALIST No acute findings in the abdomen/pelvis. Specifically, no bowel obstruction. Electronically signed by: Raul Whitfield M.D. Narrative 06/12/2024 12:49 PM SAFETY SPECIALIST EXAMINATION: Computed tomography of the abdomen and [...] ED PERIPHERAL LINE INSERTION (06/12/2024 11:50 AM SAFETY SPECIALIST) Narrative Shakila Jung MD - 06/12/2024 11:50 AM SAFETY SPECIALIST Shakila Jung MD 06/12/2024 11:50 AM Peripheral [...] and COVID-19 PCR Nasopharyngeal (06/12/2024 11:39 AM SAFETY SPECIALIST) Pathologist [facility] COVID-19 RNA Negative Negative [facility] Influenza A RNA Negative Negative [facility] Influenza B RNA Negative Negative [facility] RSV RNA Negative Negative [facility] Comment: Interpretive data: Testing performed by [facility] ([phone]). This test is performed using the [employer] Xpert Xpress CoV-2/Flu/RSV plus assay. This is a multiplex, real-time reverse transcriptase PCR assay intended for the qualitative detection of nucleic acid from SARS-CoV-2, influenza A, influenza B, and respiratory syncytial virus. This assay has been cleared by the [place] Food and Drug administration. The performance characteristics have been verified by the [facility]. Results must be considered in the clinical context, and a negative result does not rule out infection. Interpretive Data last revised 2023 Nasopharyngeal 06/12/2024 11 :39 AM SAFETY SPECIALIST 06/12/2024 12:55 PM SAFETY SPECIALIST Narrative [facility] - 06/12/2024 1:39 PM SAFETY SPECIALIST Is the Patient experiencing symptoms consistent with COVID?->Unknown Shakila Jung MD LAB MICROBIOLOGY - GENERAL ORDERABLES Final Result Performing Organization Address City/[facility] Co de Phone Number [facility] [place] [address] [facility] * POCT creatinine (06/12/2024 11:29 AM SAFETY SPECIALIST) Creatinine POC 0.7 0.7 - 1.3 mg/dL Blood 06/12/2024 11:2 9 AM SAFETY SPECIALIST 06/12/2024 11:29 AM SAFETY SPECIALIST Shakila Jung MD LAB POCT ORDERABLE S - DEVICE Final Result Performing Organization Address [facility] Co de Phone Number [facility] [place] [address] * Troponin I high-sensitivity series (baseline, 2hr, 4hr, 6hr) (06/12/2024 11:22 AM SAFETY SPECIALIST) Trop I hs 9 <=35 ng/L Comment: Interpretive Data For further hscTnI resources including the diagnostic algorithm and an aid in interpretation, copy and paste this link: https://bjhlab.testcatalog.org/show/[email or web address] Current Interpretive Data last revised 2019. Blood 06/12/2024 11:2 2 AM SAFETY SPECIALIST 06/12/2024 1:06 PM SAFETY SPECIALIST Shakila Jung MD LAB BLOOD ORDERABL ES Final Result Performing Organization Address [facility] de Phone Number [facility] [place] [address] * eGFR (06/12/2024 11:22 AM SAFETY SPECIALIST) eGFR >90 >=60 mL/min/1. 73 m2 Comment: [...] reviewed 2021. Blood 06/12/2024 11:2 2 AM SAFETY SPECIALIST 06/12/2024 1:07 PM SAFETY SPECIALIST Shakila Jung MD LAB BLOOD ORDERABL ES Final Result Performing Organization Address [facility] de Phone Number [facility] [place] [address] * Differential, auto (06/12/2024 11:22 AM SAFETY SPECIALIST) Neutrophil abs See Comment 1.5 - 6.5 Comment:Credited, specimen c lotted. Imm gran abs See Comment 0.0 - 0.1 [facility] Comment:Credited, specimen c lotted. Lymphocyte abs See Comment 0.8 - 3.3 [facility] Comment:Credited, specimen c lotted. Monocyte abs See Comment 0.2 - 0.8 [facility] Comment:Credited, specimen c lotted. Eosinophil abs See Comment 0.0 - 0.5 [facility] Comment:Credited, specimen c lotted. Basophil abs See Comment 0.0 - 0.1 [facility] Comment:Credited, specimen c lotted. Neutrophil pct See Comment [facility] Comment: Credited, specimen clotted. Interpretive Data Percent cell count reference ranges are not reported, since discordance with absolute values may lead to misinterpretation of CBC data. Current Interpretive Data was last revised on 2017. Imm gran pct See Comment [facility] Comment: Credited, specimen clotted. Interpretive Data Percent cell count reference ranges are not reported, since discordance with absolute values may lead to misinterpretation of CBC data. Current Interpretive Data was last revised on 2017. Lymphocyte pct See Comment [facility] Comment: Credited, specimen clotted. Interpretive Data Percent cell count reference ranges are not reported, since discordance with absolute values may lead to misinterpretation of CBC data. Current Interpretive Data was last revised on 2017. Monocyte pct See Comment [facility] Comment: Credited, specimen clotted. Interpretive Data Percent cell count reference ranges are not reported, since discordance with absolute values may lead to misinterpretation of CBC data. Current Interpretive Data was last revised on 2017. Eosinophil pct See Comment [facility] Comment: Credited, specimen clotted. Interpretive Data Percent cell count reference ranges are not reported, since discordance with absolute values may lead to misinterpretation of CBC data. Current Interpretive Data was last revised on 2017. Basophil pct See Comment [facility] Comment: Credited, specimen clotted. Interpretive Data Percent cell count reference ranges are not reported, since discordance with absolute values may lead to misinterpretation of CBC data. Current Interpretive Data was last revised on 2017. Blood 06/12/2024 11:2 2 AM SAFETY SPECIALIST 06/12/2024 1:07 PM SAFETY SPECIALIST us Shakila Jung MD LAB BLOOD ORDERABL ES Edited Result - Final [facility] [place] [address] * CBC with auto differential (06/12/2024 11:22 AM SAFETY SPECIALIST) WBC See Comment 3.8 - 9.9 Comment:Credited, specimen c lotted. Hgb See Comment 13.0 - 17.5 [facility] Comment:Credited, specimen c lotted. Hct See Comment 38.9 - 50.3 [facility] Comment:Credited, specimen c lotted. Plt See Comment 150 - 400 [facility] Comment: Credited, specimen clotted. spoke to ALFRED Velásquez 06/12/2024 14:17:24 SAFETY SPECIALIST fv MPV See Comment 9.1 - 12.3 [facility] Comment:Credited, specimen c lotted. RBC See Comment 4.30 - 5.80 [facility] Comment:Credited, specimen c lotted. MCV See Comment 81.3 - 96.4 [facility] Comment:Credited, specimen c lotted. MCH See Comment 27.1 - 33.3 [facility] Comment:Credited, specimen c lotted. MCHC See Comment 32.3 - 35.7 [facility] Comment:Credited, specimen c lotted. RDW CV See Comment 11.1 - 14.9 [facility] Comment:Credited, specimen c lotted. RDW SD See Comment 35.7 - 48.1 [facility] Comment:Credited, specimen c lotted. NRBC abs See Comment 0.00 - 0.01 K/cumm [facility] Comment:Credited, specimen c lotted. Blood 06/12/2024 11:2 2 AM SAFETY SPECIALIST 06/12/2024 1:07 PM SAFETY SPECIALIST Shakila Jung MD LAB BLOOD ORDERABL ES Final Result [facility] [place] [address] * Lipase (06/12/2024 11:22 AM SAFETY SPECIALIST) [facility] Lipase 24 10 - 99 Units/L Blood 06/12/2024 11:2 2 AM SAFETY SPECIALIST 06/12/2024 1:07 PM SAFETY SPECIALIST Shakila Jung MD LAB BLOOD ORDERABL ES Final Result Performing Organization Address [facility] Co de Phone Number [facility] [place] [address] * (ABNORMAL) Valproic acid level, total (06/12/2024 11:22 AM SAFETY SPECIALIST) [facility] Valproic Acid 48.0(L) 50.0 - 100.0 mcg/mL Comment: Interpretive Data Therapeutic or toxic effects of anticonvulsant drugs may occur at different concentrations in different patients and the correlation between dose and clinical effect must be evaluated individually. Current interpretative data was last revised on 13. Blood 06/12/2024 11:2 2 AM SAFETY SPECIALIST 06/12/2024 1:07 PM SAFETY SPECIALIST Shakila Jung MD LAB BLOOD ORDERABL ES Final Result Performing Organization Address [facility] de Phone Number [facility] [place] [address] * (ABNORMAL) Comprehensive metabolic panel (06/12/2024 11:22 AM SAFETY SPECIALIST) [facility] Sodium 142 135 - 145 mmol/L Potassium, pl 4.6 3.3 - 4.9 mmol/L [facility] Comment:Hemolyzed; Potassium value may be falsely elevated by as much as 0.6-1.0 mmol/L. Suggest redraw and reanalysis. Chloride 101 97 - 110 mmol/L [facility] CO2 29 22 - 32 mmol/L [facility] Anion gap 12 2 - 15 mmol/L [facility] BUN 11 6 - 25 mg/dL [facility] Creatinine 0.60(L) 0.80 - 1.30 mg/dL [facility] Glucose 89 70 - 199 mg/dL [facility] Comment: Interpretive Data Fasting glucose >/= 126 [...] 2022. Calcium 10.3 8.5 - 10.3 mg/dL [facility] Bilirubin, total 0.3 0.1 - 1.2 mg/dL [facility] Protein, pl 8.5 6.5 - 8.5 g/dL [facility] Albumin 4.3 3.5 - 5.0 g/dL [facility] Alk phos 114 40 - 130 Units/L [facility] ALT 22 7 - 55 Units/L [facility] AST 45 10 - 50 Units/L [facility] Comment:Hemolyzed; result ma y be falsely elevated Blood 06/12/2024 11:2 2 AM SAFETY SPECIALIST 06/12/2024 1:07 PM SAFETY SPECIALIST us Shakila Jung MD LAB BLOOD ORDERABL ES Final Result [facility] [place] [address] * ECG 12-LEAD (06/12/2024 11:01 AM SAFETY SPECIALIST) Narrative [facility] - 06/12/2024 11:01 AM SAFETY SPECIALIST Shakila Jung MD 06/12/2024 11:02 AM ECG [...] from prior Shakila Jung MD 06/12/24 1102 Shaklia Jung MD ECG ORDERABLES nal Result [facility] * TNI with LIPID PANEL (08/24/2017 4:57 PM CDT) Pathologist [facility] Troponin I < 0.300 0.000 - 0.300 ng/mL 08/24/2017 5:[address] [facility] [employer] HISTORICAL RESULTS Comment: Reference using ZAC Chemiluminescence Negative: Repeat in 4-6 hours as indicated. Triglycerides 34 0 - 199 mg/dL 08/24/2017 5:30 PM T [employer] HISTORICAL RESULTS Comment:12 hr pc highly avani mmended for Triglyceride Cholesterol 129 0 - 199 mg/dL 08/24/2017 5:30 PM [facility] [employer] HISTORICAL RESULTS Comment: Borderline: 200-239 High Risk: >239 HDL Cholesterol 71 mg/dL 8 5:30 PM T [employer] HISTORICAL RESULTS Comment: Reference Ranges: Males: >=40 mg/dL Females: >=50 mg/dL LDL Cholesterol, Calc 51 0 - 130 mg/dL 08/24/2017 5:30 PM T [facility] HISTORICAL RESULTS Comment:High Risk > 159 mg/d L Cholesterol/HDL Ratio 1.8 08/24/2017 5:30 PM CDT [facility] HISTORICAL RESULTS Comment: Cholesterol / HDL Ratio 3.5:1 or less is desirable. Cholesterol / HDL Ratio greater than 5:1 is considered higher risk for developing heart disease. 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 Source: [facility] [employer]. 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 Source: [facility] [employer]. 09/18/22 Acinetobacter os 09/18/[address] [facility] Advance Directives For more information, please contact: [phone] Documents on File Type Date Recorded Patient Rivet Passer Expl anation ADVANCE DIRECTIVE 10/08/2012 12:00 AM SANDRA R OF STUDENT ACCOUNTS COORDINATOR FINANCIAL/MEDICAL * Full Code (Latest Code Status on File) Date Activated Date Inactivated Comments 06/12/2024 3:22 PM 06/28/2024 9:30 PM * Full Code Date Activated Date Inactivated Comments 12/10/2020 9:05 AM 12/13/2020 10:44 PM Care Teams Industrial Maintenance Millwright Relationship Specialty Start Date End Date Marielena Smallwood MD [address] [facility] [place] [address] PCP - General Family Practice 07/08/24 Clinical Summary Created on: August 15, 2024 Bi Tabor : 1960 Sex: Male Author Organization [facility] Address [address] [place] [address] Care Team Providers Care Industrial Maintenance Millwright Name Role Phone Marielena Smallwood MD Primary [...] 25 Active cloBAZam (ONFI) 2.5 mg/mL suspensionIndicati ons:Streeter-Gastaut Syndrome Treatment Adjunct Administer 4 mL (10 [...] 06/28/2024 Assessment & Plan (06/28/2024 11:42 AM SAFETY SPECIALIST): Now back on full TF's sugars running mildly high. Monitor with q4 accuchecks and SSI. Hypophosphatemia 06/27/2024 Assessment & Plan (06/28/2024 11:44 AM SAFETY SPECIALIST): <0.7 ? 2/2 refeeding syndrome. Started on neutraphos 2pkg QID 06/26. Still Phos<0.7 06/27. Tx with IV NaPhos 30mmoles and cont per tube replacement and monitor closely. -06/28: Phos=3.3, reduce nuetraphos to 1 PKG BID and monitor History of DVT (deep vein thrombosis) 06/26/2024 Assessment & Plan (06/26/2024 1:32 PM SAFETY SPECIALIST): -On anticoagulation with Eliquis 5 mg po BID for hx of DVT -per chart review hx of Left Subclavian vein DVT diagnosed 08/01/23 H/O: GI bleed 06/25/2024 Assessment & Plan (06/26/2024 1:32 PM SAFETY SPECIALIST): - recent [facility] ( 06-07-24 [...] 06/25/2024 Assessment & Plan (06/26/2024 1:36 PM SAFETY SPECIALIST): Tracheostomy dependence, has a Shiley #4 cuffed. Pt followed at [facility], per notes trach in place for pulmonary toilet due to his copious secretions and ongoing aspiration of his secretions. -needing frequent suctioning -sats stable on 28% FIO2 by [facility] -Was getting VEST at [facility] Low grade fever 06/20/2024 Assessment & Plan (06/26/2024 1:34 PM SAFETY SPECIALIST): Low-grade fever and tachycardia, softer BP after [...] 06/17/2024 Assessment & Plan (06/28/2024 11:43 AM SAFETY SPECIALIST): -patient at admission with a G tube, was getting continous tube feedings at [facility] and not tolerating, -was changed to bolus [...] underwent G tube conversion to GJ at [facility] 12/14/22 (additional documented GJ tube procedures at [facility] most recent 09/09/23). Pt ' feeding tube fell off and pt had 18 Vincentian G tube placed at [facility] ED on 04/21/24 (records on care everywhere)and after that he has not tolerated well tube feedings per discussion with his sister Ms Hilliard,Procious [phone] POA - consulted IR 06-20-24 for conversion [...] goal 06/25, adjust FWF per hydration status, stained glass glazier to follow up -On full TF's-osmolite 1.5. Phos repleted. Copious oral secretions 06/13/2024 Assessment & Plan (06/26/2024 1:29 PM SAFETY SPECIALIST): Patient on chronic glycopyrrolate due to secretions, held at admission / to potential for constipation with plan to add back when he's had a bowel movements -resume on 06-19- hold on 06-20 due to somnolence. Suction PRN - restart glycopyrrolate 1mg BID 06/26 and monitor Abdominal pain 06/12/2024 Assessment & Plan (06/26/2024 1:23 PM SAFETY SPECIALIST): -p/w abdominal distention from SNF to ED on 06-12 ,reported biliary emesis per [facility] (approximately 300 cc) , not associated fevers or change in bowel habits. Feeding tube placed to gravity drainage in ED H&P notes regular bowel movements. CT scan on 06-12 in ED with stool in the rectum and sigmoid. Ralston likely constipation contributing to the patient's abdominal [...] 06/12/2024 Assessment & Plan (06/26/2024 12:08 AM SAFETY SPECIALIST): Complicated by left LE AKA. History of CVA (cerebrovascular accident) 2020 Assessment & Plan (06/26/2024 1:32 PM SAFETY SPECIALIST): - hx of RT parietal CVA- hx of dementia Cont asa and statin Essential hypertension 12/11/2020 Assessment & Plan (06/26/2024 1:30 PM SAFETY SPECIALIST): - on metoprolol and norvasc, held with soft BP 06-19 - resume metoprolol 06-21 -resume amlodipine 06-22 - Monitor Hyperlipidemia 12/11/2020 Assessment & Plan (06/12/2024 3:47 PM SAFETY SPECIALIST): - Continue home statin Seizure 12/10/2020 Assessment & Plan (06/26/2024 1:36 PM SAFETY SPECIALIST): History of seizure disorder secondary to traumatic brain injury. Currently on valproate, Vimpat, Keppra and Cobazam - Continue home medication, valproate level low at admit 48 on 06-12, 48 on 06-13, Valproic acid level 76 06-19 prior to dose, lacosamide level 1.4 on 06/12, 9.6 on 06-19 Followed by Neurology at [facility] Cognitive communication deficit 08/25/2020 Cerebrovascular accident 06/13/2019 [...] Department Care Team Description 07/09/2024 7:23 PM SAFETY SPECIALIST - 07/09/2024 11:59 PM SAFETY SPECIALIST Hospital Encounter [facility] [address] [place] [address] Discharge Disposition: Discharge to home or self care 07/08/2024 7:52 PM SAFETY SPECIALIST - 07/09/2024 7:48 AM SAFETY SPECIALIST Emergency [facility] Emergency Department [address] [place] [address] Tri Martinez MD Thomas, Jenna Marie, MD Tracheostomy complication, unspecified complication type (HCC) (Primary Dx); Balanitis Discharge Disposition: Discharge to home or self care 06/12/2024 10:26 AM SAFETY SPECIALIST - 06/28/2024 5:25 PM SAFETY SPECIALIST Hospital Encounter [facility] [address] [place] [address] Shakila Jung MD Choi, Cheuk Ho Jeffrey, MD Nelson, MD Juliane Osullivan, Hermes Ansari Jr., MD Felix, MD Jeff De León, MD Annette Moraes Maria, MD Dupont, Kami Aparicio MD Abdominal pain (Primary Dx); [...] h recurrent seizures (HCC) Followed up at [facility] ([facility]) Degenerative cervical spinal stenosis Family History Medical History Relation Name Comments Coronary artery disease Father Stroke Father Hypertension Mother Relation Name Status Comments Father Mother Social History Tobacco Use Types Packs/Day Years Used Date Smoking Tobacco: Former Cigarettes Smokeless Tobacco: Current Tobacco Cessation:Counseling Given: Yes [employer] Util[employer] Answer Date Recorded In the past 12 months has [employer], gas, oil, or water [employer] threatened to shut off services in your [...] week 06/18/2024 How often do you attend [facility] or restorationism services? Never 06/18/2024 Do you belong to any clubs o r organizations such as hindu groups, unions, fraternal or athletic groups, or [...] any time in the past 12 m [facility], were you homeless or living in a half-way (including now)? No 06/18/2024 Personal Safety Answer Date Recorded Have you ever been in or are you currently in a harmful physical or emotional relationship or is someone making you feel afraid or unsafe? Denies 07/08/2024 Sex and Gender Information Value Date Recorded Sex Assigned at Not on file Legal Sex Male 6:11 AM SAFETY SPECIALIST Gender Identity Not on file Sexual Orientation Not on file Obstetrics History Last Filed Vital Signs Vital Sign Reading Time Taken Comments Blood Pressure 145/83 07/09/2024 6:00 AM SAFETY SPECIALIST Pulse 91 07/09/2024 6:00 AM SAFETY SPECIALIST Temperature 36.5 C (97.7 F) 07/09/2024 6:31 AM SAFETY SPECIALIST Respiratory Rate 10 07/09/2024 6:00 AM SAFETY SPECIALIST Oxygen Saturation 100% 07/09/2024 6:00 AM SAFETY SPECIALIST Inhaled Oxygen Concentration - - Weight 79.8 kg (176 lb) 07/09/2024 2:16 AM SAFETY SPECIALIST Height 182.9 cm (6') 07/09/2024 2:16 AM SAFETY SPECIALIST Body Mass Index 23.87 07/09/2024 2:16 AM SAFETY SPECIALIST Plan of Treatment Health Maintenance Due Date [...] 03/16/2021, 03/07/2020, Additional history exists Hemoglobin A1C 02/03/2025 08/03/2024, 05/30, 08/29/2022, Additional history exists Lipid Panel 06/08/2025 06/08/2024, 07/29, 02/02/2016, Additional history exists Depression Screening 06/12/2025 06/12/2024 eGFR 07/08/2025 07/08/2024, 05/31, 06/26/2024, Additional history exists DTaP/Tdap/Td Vaccine (3 - Td or Tdap) 06/06/2027 06/06/2017, 03/23/2017 Hepatitis C Screening Completed 06/26/2024 Procedures Procedure Name Priority Date/Time Associated Diagnosis Comments POCT RAPID HIV ANTIBODY COMMUNITY SCREENING-ISSA ELIGIBLE STAT 07/09/2024 5:32 AM SAFETY SPECIALIST SEPSIS LACTATE WITH REFLEX Timed 07/09/2024 4:33 AM SAFETY SPECIALIST ED PERIPHERAL LINE INSERTION Routine 07/09/2024 1:18 AM SAFETY SPECIALIST SEPSIS LACTATE WITH REFLEX Timed 07/09/2024 1:15 AM SAFETY SPECIALIST RPR STAT 07/09/2024 1:15 AM SAFETY SPECIALIST N. GONORRHOEAE/C. TRACHOMATIS AMPLIFICATION STAT 07/09/2024 1:02 AM SAFETY SPECIALIST URINALYSIS AND REFLEX TO MICROSCOPIC AND CULTURE STAT 07/09/2024 1:02 AM SAFETY SPECIALIST ED PERIPHERAL LINE INSERTION Routine 07/08/2024 10:[address] CHEST ABDOMEN PELVIS W CONTRAST ED 07/08/2024 9:55 PM SAFETY SPECIALIST EGFR STAT 07/08/2024 8:56 PM SAFETY SPECIALIST DIFFERENTIAL AUTO STAT 07/08/2024 8:5 6 PM SAFETY SPECIALIST SEPSIS LACTATE WITH REFLEX STAT 07/08/2024 8:56 PM SAFETY SPECIALIST LIPASE STAT 07/08/2024 8:56 PM SAFETY SPECIALIST COMPREHENSIVE METABOLIC PANEL STAT 07/08/2024 8:56 PM SAFETY SPECIALIST CBC WITH AUTO DIFFERENTIAL STAT 07/08/2024 8:56 PM SAFETY SPECIALIST RESPIRATORY PATHOGEN PANEL STAT 07/08/2024 8:56 PM SAFETY SPECIALIST ECG 12-LEAD Routine 07/08/2024 8:28 PM SAFETY SPECIALIST XR CHEST 1 VIEW ED 07/08/2024 8:18 PM SAFETY SPECIALIST POCT GLUCOSE DEVICE Routine 06/28/2024 4 :24 PM SAFETY SPECIALIST POCT GLUCOSE DEVICE Routine 06/28/2024 1 2:30 PM SAFETY SPECIALIST POCT GLUCOSE DEVICE Routine 06/28/2024 7 :43 AM SAFETY SPECIALIST POCT GLUCOSE DEVICE Routine 06/28/2024 4 :01 AM SAFETY SPECIALIST POCT GLUCOSE DEVICE Routine 06/27/2024 1 1:28 PM SAFETY SPECIALIST EGFR Routine 06/27/2024 9:30 PM SAFETY SPECIALIST PHOSPHORUS Routine 06/27/2024 9:30 PM SAFETY SPECIALIST MAGNESIUM Routine 06/27/2024 9:30 PM SAFETY SPECIALIST BASIC METABOLIC PANEL Routine 06/27/2024 9:30 PM SAFETY SPECIALIST POCT GLUCOSE DEVICE Routine 06/27/2024 8 :39 PM SAFETY SPECIALIST POCT GLUCOSE DEVICE Routine 06/27/2024 5 :10 PM SAFETY SPECIALIST POCT GLUCOSE DEVICE Routine 06/27/2024 4 :27 PM SAFETY SPECIALIST POCT GLUCOSE DEVICE Routine 06/27/2024 1 :06 PM SAFETY SPECIALIST POCT GLUCOSE DEVICE Routine 06/27/2024 9 :59 AM SAFETY SPECIALIST EGFR Routine 06/26/2024 10:21 PM SAFETY SPECIALIST DIFFERENTIAL AUTO Routine 06/26/2024 10: 21 PM SAFETY SPECIALIST PHOSPHORUS Routine 06/26/2024 10:21 PM SAFETY SPECIALIST MAGNESIUM Routine 06/26/2024 10:21 PM SAFETY SPECIALIST CBC WITH AUTO DIFFERENTIAL Routine 06/26/2024 10:21 PM SAFETY SPECIALIST BASIC METABOLIC PANEL Routine 06/26/2024 10:21 PM SAFETY SPECIALIST HEPATITIS B SURFACE ANTIGEN Routine 06/26/2024 10:21 PM SAFETY SPECIALIST PHOSPHORUS Routine 06/26/2024 3:21 PM SAFETY SPECIALIST RPR Routine 06/26/2024 3:21 PM SAFETY SPECIALIST HEPATITIS C ANTIBODY Routine 06/26/2024 3:21 PM SAFETY SPECIALIST HIV 1/2 ANTIBODY PLUS P24 ANTIGEN Routine 06/26/2024 3:21 PM SAFETY SPECIALIST EGFR Routine 06/26/2024 12:16 AM SAFETY SPECIALIST PHOSPHORUS Routine 06/26/2024 12:16 AM SAFETY SPECIALIST MAGNESIUM Routine 06/26/2024 12:16 AM SAFETY SPECIALIST BASIC METABOLIC PANEL Routine 06/26/2024 12:16 AM SAFETY SPECIALIST POCT GLUCOSE DEVICE Routine 06/23/2024 1 1:36 AM SAFETY SPECIALIST CBC WITHOUT DIFFERENTIAL Timed 06/23/2024 9:07 AM SAFETY SPECIALIST VANCOMYCIN LEVEL TROUGH Routine 06/23/2024 9:00 AM SAFETY SPECIALIST EGFR Routine 06/23/2024 9:00 AM SAFETY SPECIALIST MAGNESIUM Routine 06/23/2024 9:00 AM SAFETY SPECIALIST PHOSPHORUS Routine 06/23/2024 9:00 AM SAFETY SPECIALIST BASIC METABOLIC PANEL Routine 06/23/2024 9:00 AM SAFETY SPECIALIST G TO GJ-TUBE REPLACEMENT IP Routine 06/22/2024 1:24 PM SAFETY SPECIALIST C. DIFFICILE TESTING Routine 06/21/2024 11:11 AM SAFETY SPECIALIST INFECTION PREVENTION VRE CULTURE Routine 06/21/2024 11:10 AM SAFETY SPECIALIST VANCOMYCIN LEVEL TROUGH Timed 06/21/2024 7:16 AM SAFETY SPECIALIST EGFR Routine 06/21/2024 5:03 AM SAFETY SPECIALIST DIFFERENTIAL AUTO Routine 06/21/2024 5:0 3 AM SAFETY SPECIALIST PHOSPHORUS Timed 06/21/2024 5:03 AM SAFETY SPECIALIST MAGNESIUM Routine 06/21/2024 5:03 AM SAFETY SPECIALIST COMPREHENSIVE METABOLIC PANEL Routine 06/21/2024 5:03 AM SAFETY SPECIALIST CBC WITH AUTO DIFFERENTIAL Routine 06/21/2024 5:03 AM SAFETY SPECIALIST MSSA/MRSA (STAPHYLOCOCCUS AUREUS) CULTURE Routine 06/20/2024 10:30 PM SAFETY SPECIALIST XR ABDOMEN AP 1 VIEW IP Routine 06/20/2024 10:29 AM SAFETY SPECIALIST URINALYSIS, MICROSCOPIC ONLY Routine 06/19/2024 9:34 PM SAFETY SPECIALIST URINALYSIS AND REFLEX TO MICROSCOPIC AND CULTURE Routine 06/19/2024 9:34 PM SAFETY SPECIALIST DIFFERENTIAL AUTO Routine 06/19/2024 9:2 8 PM SAFETY SPECIALIST CBC WITH AUTO DIFFERENTIAL Routine 06/19/2024 9:28 PM SAFETY SPECIALIST VALPROIC ACID LEVEL, TOTAL Timed 06/19/2024 9:28 PM SAFETY SPECIALIST LACOSAMIDE Routine 06/19/2024 9:28 PM SAFETY SPECIALIST RESPIRATORY PATHOGEN PANEL Routine 06/19/2024 9:10 PM SAFETY SPECIALIST AEROBIC CULTURE AND GRAM STAIN Routine 06/19/2024 6:53 PM SAFETY SPECIALIST XR CHEST 1 VIEW IP Routine 06/19/2024 6:47 PM SAFETY SPECIALIST RESPIRATORY PATHOGEN PANEL Routine 06/19/2024 6:46 PM SAFETY SPECIALIST XR ABDOMEN AP 1 VIEW IP Routine 06/19/2024 4:09 PM SAFETY SPECIALIST XR CHEST 1 VIEW IP Routine 06/19/2024 4:08 PM SAFETY SPECIALIST EGFR Timed 06/19/2024 2:47 PM SAFETY SPECIALIST DIFFERENTIAL AUTO Timed 06/19/2024 2:4 7 PM SAFETY SPECIALIST PHOSPHORUS Timed 06/19/2024 2:47 PM SAFETY SPECIALIST MAGNESIUM Timed 06/19/2024 2:47 PM SAFETY SPECIALIST COMPREHENSIVE METABOLIC PANEL Timed 06/19/2024 2:47 PM SAFETY SPECIALIST CBC WITH AUTO DIFFERENTIAL Timed 06/19/2024 2:47 PM SAFETY SPECIALIST POCT GLUCOSE DEVICE Routine 06/19/2024 2 :25 PM SAFETY SPECIALIST XR ABDOMEN AP 1 VIEW IP Routine 06/16/2024 6:16 PM SAFETY SPECIALIST EGFR Routine 06/16/2024 12:42 PM SAFETY SPECIALIST DIFFERENTIAL AUTO Routine 06/16/2024 12: 42 PM SAFETY SPECIALIST PHOSPHORUS Routine 06/16/2024 12:42 PM SAFETY SPECIALIST MAGNESIUM Routine 06/16/2024 12:42 PM SAFETY SPECIALIST COMPREHENSIVE METABOLIC PANEL Routine 06/16/2024 12:42 PM SAFETY SPECIALIST CBC WITH AUTO DIFFERENTIAL Routine 06/16/2024 12:42 PM SAFETY SPECIALIST XR ABDOMEN AP 1 VIEW ED Urgent/IP Urgent 06/15/2024 1:57 AM SAFETY SPECIALIST EGFR Routine 06/13/2024 4:59 AM SAFETY SPECIALIST DIFFERENTIAL AUTO Routine 06/13/2024 4:5 9 AM SAFETY SPECIALIST VALPROIC ACID LEVEL, TOTAL Routine 06/13/2024 4:59 AM SAFETY SPECIALIST CBC WITH AUTO DIFFERENTIAL Routine 06/13/2024 4:59 AM SAFETY SPECIALIST PHOSPHORUS Routine 06/13/2024 4:59 AM SAFETY SPECIALIST MAGNESIUM Routine 06/13/2024 4:59 AM SAFETY SPECIALIST COMPREHENSIVE METABOLIC PANEL Routine 06/13/2024 4:59 AM SAFETY SPECIALIST LACOSAMIDE Routine 06/13/2024 4:59 AM SAFETY SPECIALIST BLOOD CULTURE Routine 06/13/2024 4:59 AM SAFETY SPECIALIST TSH Routine 06/12/2024 3:51 PM SAFETY SPECIALIST DIFFERENTIAL AUTO Routine 06/12/2024 3:3 0 PM SAFETY SPECIALIST CBC WITH AUTO DIFFERENTIAL Routine 06/12/2024 3:30 PM SAFETY SPECIALIST HEMOGLOBIN A1C Routine 06/12/2024 3:30 PM SAFETY SPECIALIST TROPONIN I HIGH-SENSITIVITY 4-HOUR Timed 06/12/2024 3:27 PM SAFETY SPECIALIST XR CHEST 1 VIEW ED 06/12/2024 2:47 PM SAFETY SPECIALIST URINALYSIS AND REFLEX TO MICROSCOPIC AND CULTURE STAT 06/12/2024 2:38 PM SAFETY SPECIALIST DIFFERENTIAL AUTO STAT 06/12/2024 2:2 3 PM SAFETY SPECIALIST CBC WITH AUTO DIFFERENTIAL STAT 06/12/2024 2:23 PM SAFETY SPECIALIST TROPONIN I HIGH-SENSITIVITY 2-HOUR Timed 06/12/2024 1:[address] ABDOMEN PELVIS W CONTRAST ED 06/12/2024 12:22 PM SAFETY SPECIALIST ED PERIPHERAL LINE INSERTION Routine 06/12/2024 11:50 AM SAFETY SPECIALIST INFLUENZA A/B, RSV, AND COVID-19 PCR Routine 06/12/2024 11:39 AM SAFETY SPECIALIST POCT CREATININE - DEVICE Routine 06/12/2024 11:29 AM SAFETY SPECIALIST EGFR STAT 06/12/2024 11:22 AM SAFETY SPECIALIST DIFFERENTIAL AUTO STAT 06/12/2024 11: 22 AM SAFETY SPECIALIST TROPONIN I HIGH-SENSITIVITY SERIES (BASELINE, 2HR, 4HR, 6HR) STAT 06/12/2024 11:22 AM SAFETY SPECIALIST LIPASE STAT 06/12/2024 11:22 AM SAFETY SPECIALIST CBC WITH AUTO DIFFERENTIAL STAT 06/12/2024 11:22 AM SAFETY SPECIALIST COMPREHENSIVE METABOLIC PANEL STAT 06/12/2024 11:22 AM SAFETY SPECIALIST VALPROIC ACID LEVEL, TOTAL STAT 06/12/2024 11:22 AM SAFETY SPECIALIST ECG 12-LEAD Routine 06/12/2024 11:01 AM SAFETY SPECIALIST TNI WITH LIPID PANEL Routine 08/24/2017 4:57 PM CDT from Last 3 Months or Most Recently Relevant to Health Maintenance Results * POCT Rapid HIV Antibody Community Screening-Issa Eligible (07/09/2024 5:32 AM SAFETY SPECIALIST) Pathologist [facility] Rapid HIV, POC Negative Negative Lot Number [id number] QC Control Line Acceptable Blood 07/09/2024 5:32 AM SAFETY SPECIALIST us Naa Tam MD POINT OF CARE TEST ORDER NICHOLE Final Result * Sepsis Lactate w/ Reflex (07/09/2024 4:33 AM SAFETY SPECIALIST) [facility] Sepsis Lactate 2.0 0.7 - 2.0 mmol/L Blood 07/09/2024 4:33 AM SAFETY SPECIALIST 07/09/2024 4:42 AM SAFETY SPECIALIST us Naa Tam MD LAB BLOOD ORDERABLES Fin al Result [facility] [place] [address] * ED PERIPHERAL LINE INSERTION (07/09/2024 1:18 AM SAFETY SPECIALIST) Narrative Cherie Damian MD - 07/09/2024 1:18 AM SAFETY SPECIALIST Atul Barba MD 07/09/2024 1:18 AM Peripheral [...] Sepsis Lactate w/ Reflex (07/09/2024 1:15 AM SAFETY SPECIALIST) Pathologist [facility] Sepsis Lactate 2.8(H) 0.7 - 2.0 mmol/L Blood 07/09/2024 1:15 AM SAFETY SPECIALIST 07/09/2024 1:46 AM SAFETY SPECIALIST Result [facility] Naa Tam MD LAB BLOOD ORDERABLES Fin al Result Performing Organization Address [facility]/ZIP Co de Phone Number [facility] [place] [address] * RPR Blood (07/09/2024 1:15 AM SAFETY SPECIALIST) [facility] RPR Nonreactive Nonreactive Blood 07/09/2024 1:15 AM SAFETY SPECIALIST 07/09/2024 1:40 AM SAFETY SPECIALIST Result [facility] Naa Tam MD LAB MICROBIOLOGY - GENER AL ORDERABLES Final Result Performing Organization Address [facility] de Phone Number [facility] [place] [address] * N. gonorrhoeae/C. trachomatis Amplification Urine (07/09/2024 1:02 AM SAFETY SPECIALIST) [facility] C. trachomatis Not Detected Not Detected [facility] N. gonorrhoeae Not Detected Not Detected [facility] Comment: Interpretive Data This assay detects Chlamydia trachomatis and Neisseria gonorrhoeae by nucleic acid amplification testing (NAAT). This assay has been cleared by the [place] Food and Drug administration. The performance characteristics of this test have been verified by the [facility] Molecular Infectious Disease laboratory. The performance characteristics of this test have not been evaluated in individuals less than 14 years of age. Current Interpretive Data last revised 2023. Urine (None) 07/09/2024 1:02 AM SAFETY SPECIALIST 07/09/2024 1:35 AM SAFETY SPECIALIST Naa Tam MD LAB MICROBIOLOGY - GENER AL ORDERABLES Final Result Performing Organization Address [facility] Co de Phone Number [facility] [place] [address] [facility] * (ABNORMAL) Urinalysis reflex to microscopic and culture Urine, clean voided (07/09/2024 1:02 AM SAFETY SPECIALIST) Color, ur Straw Yellow Clarity, ur Clear Clear [facility] Specific gravity, ur >1.042(H) 1.003 - 1.030 [facility] pH, urine 7.5 [facility] Comment: Interpretive Data U rine pH is affected by diet, medications, systemic acid-base disturbances, and renal tubular function. pH may affect urinary stone formation. For example, urine pH below 6.0 may help reduce the tendency for calcium phosphate stones and pH greater than 6.0 may reduce the tendency for uric acid stone formation. Source: [facility] Current Interpretive Data was last revised on 2017 Protein, ur ql Trace Negative [facility] Glucose, ur ql Negative Negative [facility] Ketones, ur Negative Negative [facility] Bilirubin, ur Negative Negative [facility] Blood, ur Negative Negative [facility] Urobilinogen, ur <2.0 <2.0 mg/dL [facility] Nitrite, ur Negative Negative [facility] Leukocyte esterase, ur Negative Negative [facility] UA reflex comment Reflex conditions for microscopic UA and culture not met. [facility] Urine, clean voided 07/09/2024 1:02 AM SAFETY SPECIALIST 07/09/2024 1:15 AM SAFETY SPECIALIST us Naa Tam MD LAB MICROBIOLOGY - GENER AL ORDERABLES Final Result Performing Organization Address [facility] Co de Phone Number [facility] [place] [address] * ED PERIPHERAL LINE INSERTION (07/08/2024 10:11 PM SAFETY SPECIALIST) Narrative Tri Martinez MD - 07/08/2024 10:11 PM SAFETY SPECIALIST Atul Barba MD 07/08/2024 10:12 PM Peripheral [...] of procedure: Tolerated well, no immediate complications Tri Martinez MD IN CLINIC/BEDSIDE ORDERAB LES Final Result * CT Chest Abdomen Pelvis W Contrast (07/08/2024 9:55 PM SAFETY SPECIALIST) Anatomical Region Laterality Modality Body N/A Computed Tomogra phy 07/08/2024 10:3 2 PM SAFETY SPECIALIST Impressions 07/09/2024 7:23 AM SAFETY SPECIALIST Liquid stool within the colon, indicative of diarrheal state. Otherwise, no acute abnormalities in the abdomen or pelvis. Dictated by: Delia Morton MD The radiology attending physician has personally reviewed this study, and had reviewed and/or edited this written report and agrees with it. Electronically signed by: Marlon Kohler M.D. Narrative 07/09/2024 7:23 AM SAFETY SPECIALIST EXAMINATION: Computed tomography of the chest, abdomen [...] Sepsis Lactate w/ Reflex (07/08/2024 8:56 PM SAFETY SPECIALIST) [facility] Sepsis Lactate 2.4(H) 0.7 - 2.0 mmol/L Blood 07/08/2024 8:56 PM SAFETY SPECIALIST 07/08/2024 9:24 PM SAFETY SPECIALIST us Naa Tam MD LAB BLOOD ORDERABLES Fin al Result [facility] [place] [address] * eGFR (07/08/2024 8:56 PM SAFETY SPECIALIST) [facility] eGFR >90 >=60 mL/min/1. 73 m2 Comment: [...] last reviewed 2021. Blood 07/08/2024 8:56 PM SAFETY SPECIALIST 07/08/2024 9:26 PM SAFETY SPECIALIST us Naa Tam MD LAB BLOOD ORDERABLES Fin al Result [facility] [place] [address] * Differential, auto (07/08/2024 8:56 PM SAFETY SPECIALIST) Neutrophil abs 4.4 1.5 - 6.5 K/cumm Imm gran abs 0.0 0.0 - 0.1 K/cumm [facility] Lymphocyte abs 2.6 0.8 - 3.3 K/cumm [facility] Monocyte abs 0.5 0.2 - 0.8 K/cumm [facility] Eosinophil abs 0.5 0.0 - 0.5 K/cumm [facility] Basophil abs 0.0 0.0 - 0.1 K/cumm [facility] Neutrophil pct 54.7 % [facility] Comment: Interpretive Data Percent cell count reference ranges are not reported, since discordance with absolute values may lead to misinterpretation of CBC data. Current Interpretive Data was last revised on 2017. Imm gran pct 0.2 % [facility] Comment: Interpretive Data Percent cell count reference ranges are not reported, since discordance with absolute values may lead to misinterpretation of CBC data. Current Interpretive Data was last revised on 2017. Lymphocyte pct 32.1 % [facility] Comment: Interpretive Data Percent cell count reference ranges are not reported, since discordance with absolute values may lead to misinterpretation of CBC data. Current Interpretive Data was last revised on 2017. Monocyte pct 6.6 % [facility] Comment: Interpretive Data Percent cell count reference ranges are not reported, since discordance with absolute values may lead to misinterpretation of CBC data. Current Interpretive Data was last revised on 2017. Eosinophil pct 6.0 % [facility] Comment: Interpretive Data Percent cell count reference ranges are not reported, since discordance with absolute values may lead to misinterpretation of CBC data. Current Interpretive Data was last revised on 2017. Basophil pct 0.4 % [facility] Comment: Interpretive Data Percent cell count reference ranges are not reported, since discordance with absolute values may lead to misinterpretation of CBC data. Current Interpretive Data was last revised on 2017. Blood 07/08/2024 8:56 PM SAFETY SPECIALIST 07/08/2024 9:27 PM SAFETY SPECIALIST Naa Tam MD LAB BLOOD ORDERABLES Fin al Result [facility] [place] [address] * Respiratory pathogen panel Nasopharyngeal (07/08/2024 8:56 PM SAFETY SPECIALIST) Pathologist [facility] Influenza A RNA Not Detected Not Detected Influenza B RNA Not Detected Not Detected [facility] RSV RNA Not Detected Not Detected [facility] COVID-19 RNA Not Detected Not Detected [facility] Coronavirus 229E RNA Not Detected Not Detected [facility] Coronavirus HKU1 RNA Not Detected Not Detected [facility] Coronavirus NL63 RNA Not Detected Not Detected [facility] Coronavirus OC43 RNA Not Detected Not Detected [facility] Adenovirus DNA Not Detected Not Detected [facility] Metapneumovirus RNA Not Detected Not Detected [facility] Rhinovirus/Enterov irus RNA Not Detected Not Detected [facility] Parainfluenza 1 RNA Not Detected Not Detected [facility] Parainfluenza 2 RNA Not Detected Not Detected [facility] Parainfluenza 3 RNA Not Detected Not Detected [facility] Parainfluenza 4 RNA Not Detected Not Detected [facility] B. pertussis DNA Not Detected Not Detected [facility] B. parapertussis DNA Not Detected Not Detected [facility] C. pneumoniae DNA Not Detected Not Detected [facility] M. pneumoniae DNA Not Detected Not Detected [facility] Nasopharyngeal 07/08/2024 8: 56 PM SAFETY SPECIALIST 07/08/2024 9:25 PM SAFETY SPECIALIST Narrative [facility] - 07/08/2024 10:16 PM SAFETY SPECIALIST Is the Patient experiencing symptoms consistent with COVID?->Yes Surveillance testing for transplant patient?->No Interpretive Data The [employer] Mobile FilmArray Respiratory Panel (RP2.1) assay is a [...] assay has FDA clearance for testing of SOFTWARE QUALITY AUTOMATION ENGINEER swabs. The performance of additional specimen types has been assessed by the performing laboratory. The performance characteristics of this assay have been determined by [facility] Molecular Infectious Disease Laboratory. Current interpretive data was last revised on 22. us Naa Tam MD LAB MICROBIOLOGY - [facility] ORDERABLES Final Result [facility] [place] [address] * (ABNORMAL) CBC with auto differential (07/08/2024 8:56 PM SAFETY SPECIALIST) WBC 8.0 3.8 - 9.9 K/cumm Hgb 14.4 13.0 - 17.5 g/dL [facility] Hct 43.3 38.9 - 50.3 % [facility] Plt 236 150 - 400 K/cumm [facility] MPV 12.4(H) 9.1 - 12.3 fL [facility] RBC 4.49 4.30 - 5.80 M/cumm [facility] MCV 96.4 81.3 - 96.4 fL [facility] MCH 32.1 27.1 - 33.3 pg [facility] MCHC 33.3 32.3 - 35.7 g/dL [facility] RDW CV 13.5 11.1 - 14.9 % [facility] RDW SD 47.9 35.7 - 48.1 fL [facility] NRBC abs 0.00 0.00 - 0.01 K/cumm [facility] Blood 07/08/2024 8:56 PM SAFETY SPECIALIST 07/08/2024 9:27 PM SAFETY SPECIALIST Naa Tam MD LAB BLOOD ORDERABLES Fin al Result Performing Organization Address [place]/[facility] [facility] Co de Phone Number [facility] [place] [address] * Lipase (07/08/2024 8:56 PM SAFETY SPECIALIST) [facility] Lipase 32 10 - 99 Units/L Blood 07/08/2024 8:56 PM SAFETY SPECIALIST 07/08/2024 9:26 PM SAFETY SPECIALIST Naa Tam MD LAB BLOOD ORDERABLES Fin al Result Performing Organization Address [facility] Phone Number [facility] [place] [address] * (ABNORMAL) Comprehensive metabolic panel (07/08/2024 8:56 PM SAFETY SPECIALIST) [facility] Sodium 141 135 - 145 mmol/L Potassium, pl 4.5 3.3 - 4.9 mmol/L [facility] Chloride 102 97 - 110 mmol/L [facility] CO2 28 22 - 32 mmol/L [facility] Anion gap 11 2 - 15 mmol/L [facility] BUN 15 6 - 25 mg/dL [facility] Creatinine 0.63(L) 0.80 - 1.30 mg/dL [facility] Glucose 110 70 - 199 mg/dL [facility] Comment: Interpretive Data Fasting glucose >/= 126 [...] 2022. Calcium 10.1 8.5 - 10.3 mg/dL [facility] Bilirubin, total 0.2 0.1 - 1.2 mg/dL [facility] Protein, pl 8.0 6.5 - 8.5 g/dL [facility] Albumin 4.1 3.5 - 5.0 g/dL [facility] Alk phos 110 40 - 130 Units/L [facility] ALT 28 7 - 55 Units/L [facility] AST 26 10 - 50 Units/L [facility] Blood 07/08/2024 8:56 PM SAFETY SPECIALIST 07/08/2024 9:26 PM SAFETY SPECIALIST us Naa Tam MD LAB BLOOD ORDERABLES Fin al Result Performing Organization Address [facility] de Phone Number [facility] [place] [address] * ECG 12-LEAD (07/08/2024 8:28 PM SAFETY SPECIALIST) Narrative [facility] - 07/08/2024 8:28 PM SAFETY SPECIALIST Naa Tam MD 07/08/2024 8:30 PM ECG [...] ORDERABLES Final Re sult Performing Organization Address City/[facility] Co de Phone Number [facility] * XR Chest 1 View (07/08/2024 8:18 PM SAFETY SPECIALIST) Anatomical Region Laterality Modality Body, Chest N/A Computed Radiogr aphy 07/08/2024 8:28 PM SAFETY SPECIALIST Impressions 07/08/2024 9:56 PM SAFETY SPECIALIST Comparison is made to chest graft dated [...] Sekou Wolf M.D. Narrative 07/08/2024 9:56 PM SAFETY SPECIALIST EXAMINATION: 1 view chest radiograph Procedure Note [...] Result * POCT glucose (06/28/2024 4:24 PM SAFETY SPECIALIST) Glucose, POC 191 70 - 199 mg/dL Blood 06/28/2024 4:24 PM SAFETY SPECIALIST 06/28/2024 4:24 PM SAFETY SPECIALIST us Kami Dupont MD LAB POCT ORDERABLES - DEV ICE Final Result [facility] [place] [address] * POCT glucose (06/28/2024 12:30 PM SAFETY SPECIALIST) Glucose, POC 197 70 - 199 mg/dL Blood 06/28/2024 12:3 0 PM SAFETY SPECIALIST 06/28/2024 12:30 PM SAFETY SPECIALIST Kami Dupont MD LAB POCT ORDERABLES - DEV ICE Final Result Performing Organization Address City/[facility] [place] [address] * POCT glucose (06/28/2024 7:43 AM SAFETY SPECIALIST) Glucose, POC 191 70 - 199 mg/dL Blood 06/28/2024 7:43 AM SAFETY SPECIALIST 06/28/2024 7:43 AM SAFETY SPECIALIST Kami Dupont MD LAB POCT ORDERABLES - DEV ICE Final Result Performing Organization Address City/[facility] [place] [address] * POCT glucose (06/28/2024 4:01 AM SAFETY SPECIALIST) Glucose, POC 173 70 - 199 mg/dL Blood 06/28/2024 4:01 AM SAFETY SPECIALIST 06/28/2024 4:01 AM SAFETY SPECIALIST Kami Dupont MD LAB POCT ORDERABLES - DEV ICE Final Result Performing Organization Address City/[facility] [place] [address] * (ABNORMAL) POCT glucose (06/27/2024 11:28 PM SAFETY SPECIALIST) Glucose, POC 220(H) 70 - 199 mg/dL Comment:Use Protocol Glucose comment 1 Use Protocol [facility] Blood 06/27/2024 11:2 8 PM SAFETY SPECIALIST 06/27/2024 11:28 PM SAFETY SPECIALIST Kami Dupont MD LAB POCT ORDERABLES - DEV ICE Final Result Performing Organization Address [facility] Co de Phone Number [facility] [place] [address] * eGFR (06/27/2024 9:30 PM SAFETY SPECIALIST) eGFR >90 >=60 mL/min/1. 73 m2 Comment: [...] last reviewed 2021. Blood 06/27/2024 9:30 PM SAFETY SPECIALIST 06/27/2024 9:45 PM SAFETY SPECIALIST us Kami Dupont MD LAB BLOOD ORDERABLES Lulu l Result Performing Organization Address City/[facility]/ZIP Co de Phone Number [facility] [place] [address] * Phosphorus (06/27/2024 9:30 PM SAFETY SPECIALIST) Pathologist [facility] Phosphorus, pl 3.3 2.3 - 4.5 mg/dL Comment:Repeated and Verifie d Blood 06/27/2024 9:30 PM SAFETY SPECIALIST 06/27/2024 9:45 PM SAFETY SPECIALIST Kami Dupont MD LAB BLOOD ORDERABLES Lulu l Result Performing Organization Address City/[facility] Co de Phone Number [facility] [place] [address] * Magnesium (06/27/2024 9:30 PM SAFETY SPECIALIST) [facility] Magnesium 1.9 1.4 - 2.5 mg/dL Blood 06/27/2024 9:30 PM SAFETY SPECIALIST 06/27/2024 9:45 PM SAFETY SPECIALIST Kami Dupont MD LAB BLOOD ORDERABLES Lulu l Result Performing Organization Address [facility] de Phone Number [facility] [place] [address] * (ABNORMAL) Basic metabolic panel (06/27/2024 9:30 PM SAFETY SPECIALIST) [facility] Sodium 141 135 - 145 mmol/L Potassium, pl 4.4 3.3 - 4.9 mmol/L [facility] Chloride 105 97 - 110 mmol/L [facility] CO2 28 22 - 32 mmol/L [facility] Anion gap 8 2 - 15 mmol/L [facility] BUN 9 6 - 25 mg/dL [facility] Creatinine 0.47(L) 0.80 - 1.30 mg/dL [facility] Glucose 208(H) 70 - 199 mg/dL [facility] Comment: Interpretive Data Fasting glucose >/= 126 [...] 2022. Calcium 8.9 8.5 - 10.3 mg/dL [facility] Blood 06/27/2024 9:30 PM SAFETY SPECIALIST 06/27/2024 9:45 PM SAFETY SPECIALIST Kami Dupont MD LAB BLOOD ORDERABLES Lulu l Result Performing Organization Address City/[facility] Co de Phone Number [facility] [place] [address] * POCT glucose (06/27/2024 8:39 PM SAFETY SPECIALIST) Glucose, POC 195 70 - 199 mg/dL Blood 06/27/2024 8:39 PM SAFETY SPECIALIST 06/27/2024 8:39 PM SAFETY SPECIALIST Kami Dupont MD LAB POCT ORDERABLES - DEV ICE Final Result Performing Organization Address [facility] Co de Phone Number [facility] [place] [address] * POCT glucose (06/27/2024 5:10 PM SAFETY SPECIALIST) Glucose, POC 194 70 - 199 mg/dL Blood 06/27/2024 5:10 PM SAFETY SPECIALIST 06/27/2024 5:10 PM SAFETY SPECIALIST Kami Dupont MD LAB POCT ORDERABLES - DEV ICE Final Result Performing Organization Address [facility] Co de Phone Number [facility] [place] [address] * (ABNORMAL) POCT glucose (06/27/2024 4:27 PM SAFETY SPECIALIST) Glucose, POC 224(H) 70 - 199 mg/dL Blood 06/27/2024 4:27 PM SAFETY SPECIALIST 06/27/2024 4:27 PM SAFETY SPECIALIST us Kami Dupont MD LAB POCT ORDERABLES - DEV ICE Final Result Performing Organization Address [facility] de Phone Number [facility] [place] [address] * POCT glucose (06/27/2024 1:06 PM SAFETY SPECIALIST) Glucose, POC 173 70 - 199 mg/dL Blood 06/27/2024 1:06 PM SAFETY SPECIALIST 06/27/2024 1:06 PM SAFETY SPECIALIST us Kami Dupont MD LAB POCT ORDERABLES - DEV ICE Final Result Performing Organization Address [facility] de Phone Number [facility] [place] [address] * POCT glucose (06/27/2024 9:59 AM SAFETY SPECIALIST) Glucose, POC 158 70 - 199 mg/dL Blood 06/27/2024 9:59 AM SAFETY SPECIALIST 06/27/2024 9:59 AM SAFETY SPECIALIST Kami Dupont MD LAB POCT ORDERABLES - DEV ICE Final Result Performing Organization Address [facility] de Phone Number [facility] [place] [address] * eGFR (06/26/2024 10:21 PM SAFETY SPECIALIST) eGFR >90 >=60 mL/min/1. 73 m2 Comment: [...] reviewed 2021. Blood 06/26/2024 10:2 1 PM SAFETY SPECIALIST 06/26/2024 10:53 PM SAFETY SPECIALIST us Kami Dupont MD LAB BLOOD ORDERABLES Lulu coley Result [facility] [place] [address] * Differential, auto (06/26/2024 10:21 PM SAFETY SPECIALIST) Neutrophil abs 5.0 1.5 - 6.5 K/cumm Imm gran abs 0.0 0.0 - 0.1 K/cumm [facility] Lymphocyte abs 2.4 0.8 - 3.3 K/cumm [facility] Monocyte abs 0.8 0.2 - 0.8 K/cumm [facility] Eosinophil abs 0.4 0.0 - 0.5 K/cumm [facility] Basophil abs 0.0 0.0 - 0.1 K/cumm [facility] Neutrophil pct 58.2 % [facility] Comment: Interpretive Data Percent cell count reference ranges are not reported, since discordance with absolute values may lead to misinterpretation of CBC data. Current Interpretive Data was last revised on 2017. Imm gran pct 0.3 % [facility] Comment: Interpretive Data Percent cell count reference ranges are not reported, since discordance with absolute values may lead to misinterpretation of CBC data. Current Interpretive Data was last revised on 2017. Lymphocyte pct 27.9 % [facility] Comment: Interpretive Data Percent cell count reference ranges are not reported, since discordance with absolute values may lead to misinterpretation of CBC data. Current Interpretive Data was last revised on 2017. Monocyte pct 9.2 % [facility] Comment: Interpretive Data Percent cell count reference ranges are not reported, since discordance with absolute values may lead to misinterpretation of CBC data. Current Interpretive Data was last revised on 2017. Eosinophil pct 4.1 % [facility] Comment: Interpretive Data Percent cell count reference ranges are not reported, since discordance with absolute values may lead to misinterpretation of CBC data. Current Interpretive Data was last revised on 2017. Basophil pct 0.3 % [facility] Comment: Interpretive Data Percent cell count reference ranges are not reported, since discordance with absolute values may lead to misinterpretation of CBC data. Current Interpretive Data was last revised on 2017. Blood 06/26/2024 10:2 1 PM SAFETY SPECIALIST 06/26/2024 10:53 PM SAFETY SPECIALIST us Kami Dupont MD LAB BLOOD ORDERABLES Lulu coley Result [facility] [place] [address] * (ABNORMAL) CBC with auto differential (06/26/2024 10:21 PM SAFETY SPECIALIST) WBC 8.6 3.8 - 9.9 K/cumm Hgb 13.1 13.0 - 17.5 g/dL [facility] Hct 39.1 38.9 - 50.3 % [facility] Plt 173 150 - 400 K/cumm [facility] MPV 13.1(H) 9.1 - 12.3 fL [facility] RBC 4.07(L) 4.30 - 5.80 M/cumm [facility] MCV 96.1 81.3 - 96.4 fL [facility] MCH 32.2 27.1 - 33.3 pg [facility] MCHC 33.5 32.3 - 35.7 g/dL [facility] RDW CV 13.5 11.1 - 14.9 % [facility] RDW SD 47.8 35.7 - 48.1 fL [facility] NRBC abs 0.00 0.00 - 0.01 K/cumm [facility] Blood 06/26/2024 10:2 1 PM SAFETY SPECIALIST 06/26/2024 10:53 PM SAFETY SPECIALIST Kami Dupont MD LAB BLOOD ORDERABLES Lulu l Result Performing Organization Address City/[facility] Co de Phone Number [facility] [place] [address] * Hepatitis B Surface Antigen Blood (06/26/2024 10:21 PM SAFETY SPECIALIST) Pathologist [facility] HepBsAg Nonreactive Nonreactive Blood 06/26/2024 10:2 1 PM SAFETY SPECIALIST 06/26/2024 10:53 PM SAFETY SPECIALIST Kami Dupont MD LAB MICROBIOLOGY - GENERA L ORDERABLES Final Result Performing Organization Address [facility] Co de Phone Number [facility] [place] [address] * (ABNORMAL) Phosphorus (06/26/2024 10:21 PM SAFETY SPECIALIST) [facility] Phosphorus, pl <0.7(L) 2.3 - 4.5 mg/dL Comment:Repeated and Verifie d Blood 06/26/2024 10:2 1 PM SAFETY SPECIALIST 06/26/2024 10:53 PM SAFETY SPECIALIST Kami Dupont MD LAB BLOOD ORDERABLES Lulu l Result Performing Organization Address [facility] Co de Phone Number [facility] [place] [address] * Magnesium (06/26/2024 10:21 PM SAFETY SPECIALIST) [facility] Magnesium 2.0 1.4 - 2.5 mg/dL Blood 06/26/2024 10:2 1 PM SAFETY SPECIALIST 06/26/2024 10:53 PM SAFETY SPECIALIST Kami Dupont MD LAB BLOOD ORDERABLES Lulu l Result Performing Organization Address City/[facility]/ZIP Co de Phone Number [facility] [place] [address] * (ABNORMAL) Basic metabolic panel (06/26/2024 10:21 PM SAFETY SPECIALIST) [facility] Sodium 141 135 - 145 mmol/L Potassium, pl 4.7 3.3 - 4.9 mmol/L [facility] Chloride 106 97 - 110 mmol/L [facility] CO2 28 22 - 32 mmol/L [facility] Anion gap 7 2 - 15 mmol/L [facility] BUN 11 6 - 25 mg/dL [facility] Creatinine 0.47(L) 0.80 - 1.30 mg/dL [facility] Glucose 213(H) 70 - 199 mg/dL [facility] Comment: Interpretive Data Fasting glucose >/= 126 [...] 2022. Calcium 9.3 8.5 - 10.3 mg/dL [facility] Blood 06/26/2024 10:2 1 PM SAFETY SPECIALIST 06/26/2024 10:53 PM SAFETY SPECIALIST Kami Dupont MD LAB BLOOD ORDERABLES Lulu l Result Performing Organization Address [facility] Co de Phone Number [facility] [place] [address] * HIV 1/2 Antibody plus p24 Antigen Blood (06/26/2024 3:21 PM SAFETY SPECIALIST) Pathologist [facility] HIV 1/2 ab + p24 ag Nonreactive Nonreactive Comment:Nonreactive for HIV- 1 antigen and HIV-1/HIV-2 antibodies. No laboratory evidence of HIV infection. If acute HIV infection is suspected, consider testing for HIV-1 RNA. Current interpretive data was last revised on 22. Blood 06/26/2024 3:21 PM SAFETY SPECIALIST 06/26/2024 3:41 PM SAFETY SPECIALIST Kami Dupont MD LAB MICROBIOLOGY - GENERA L ORDERABLES Final Result Performing Organization Address [facility] [place] [address] * Hepatitis C antibody Blood (06/26/2024 3:21 PM SAFETY SPECIALIST) Pathologist [facility] Hep C Ab Nonreactive Nonreactive Comment:Antibodies to HCV no t detected. Does NOT exclude the possibility of recent exposure to HCV. Current interpretive data was last revised on 22 Blood 06/26/2024 3:21 PM SAFETY SPECIALIST 06/26/2024 3:41 PM SAFETY SPECIALIST Kami Dupont MD LAB MICROBIOLOGY - GENERA L ORDERABLES Final Result Performing Organization Address City/[facility] Co de Phone Number [facility] [place] [address] * RPR Blood (06/26/2024 3:21 PM SAFETY SPECIALIST) Pathologist [facility] RPR Nonreactive Nonreactive Blood 06/26/2024 3:21 PM SAFETY SPECIALIST 06/26/2024 3:41 PM SAFETY SPECIALIST Kami Dupont MD LAB MICROBIOLOGY - GENERA L ORDERABLES Final Result Performing Organization Address [facility]/ZIP Co de Phone Number [facility] [place] [address] * (ABNORMAL) Phosphorus (06/26/2024 3:21 PM SAFETY SPECIALIST) Phosphorus, pl 0.7(L) 2.3 - 4.5 mg/dL Comment:Repeated and Verifie d Blood 06/26/2024 3:21 PM SAFETY SPECIALIST 06/26/2024 3:41 PM SAFETY SPECIALIST us Kami Dupont MD LAB BLOOD ORDERABLES Lulu l Result Performing Organization Address [facility] Co de Phone Number [facility] [place] [address] * eGFR (06/26/2024 12:16 AM SAFETY SPECIALIST) eGFR >90 >=60 mL/min/1. 73 m2 Comment: [...] reviewed 2021. Blood 06/26/2024 12:1 6 AM SAFETY SPECIALIST 06/26/2024 12:39 AM SAFETY SPECIALIST us Patricia Bryant MD LAB BLOOD ORDERABLES Final Res ult Performing Organization Address [facility] Co de Phone Number [facility] [place] [address] * (ABNORMAL) Phosphorus (06/26/2024 12:16 AM SAFETY SPECIALIST) [facility] Phosphorus, pl <0.7(L) 2.3 - 4.5 mg/dL Comment:Repeated and Verifie d Blood 06/26/2024 12:1 6 AM SAFETY SPECIALIST 06/26/2024 12:39 AM SAFETY SPECIALIST Patricia Bryant MD LAB BLOOD ORDERABLES Final Res ult Performing Organization Address [facility] de Phone Number [facility] [place] [address] * Magnesium (06/26/2024 12:16 AM SAFETY SPECIALIST) [facility] Magnesium 1.9 1.4 - 2.5 mg/dL Blood 06/26/2024 12:1 6 AM SAFETY SPECIALIST 06/26/2024 12:39 AM SAFETY SPECIALIST Patricia Bryant MD LAB BLOOD ORDERABLES Final Res ult Performing Organization Address [facility] de Phone Number [facility] [place] [address] * (ABNORMAL) Basic metabolic panel (06/26/2024 12:16 AM SAFETY SPECIALIST) [facility] Sodium 142 135 - 145 mmol/L Potassium, pl 4.4 3.3 - 4.9 mmol/L [facility] Comment:Hemolyzed; Potassium value may be falsely elevated by as much as 0.3-0.5 mmol/L. Suggest redraw and reanalysis. Chloride 109 97 - 110 mmol/L [facility] CO2 29 22 - 32 mmol/L [facility] Anion gap 4 2 - 15 mmol/L [facility] BUN 13 6 - 25 mg/dL [facility] Creatinine 0.53(L) 0.80 - 1.30 mg/dL [facility] Glucose 177 70 - 199 mg/dL [facility] Comment: Interpretive Data Fasting glucose >/= 126 [...] 2022. Calcium 9.0 8.5 - 10.3 mg/dL [facility] Blood 06/26/2024 12:1 6 AM SAFETY SPECIALIST 06/26/2024 12:39 AM SAFETY SPECIALIST Patricia Bryant MD LAB BLOOD ORDERABLES Final Res ult Performing Organization Address [facility]/ZIP Co de Phone Number [facility] [place] [address] * POCT glucose (06/23/2024 11:36 AM SAFETY SPECIALIST) Pathologist [facility] Glucose, POC 95 70 - 199 mg/dL Blood 06/23/2024 11:3 6 AM SAFETY SPECIALIST 06/23/2024 11:36 AM SAFETY SPECIALIST Patricia Bryant MD LAB POCT ORDERABLES - DEVICE F inal Result Performing Organization Address City/[facility]/ZIP Co de Phone Number [facility] [place] [address] * (ABNORMAL) CBC without differential (06/23/2024 9:07 AM SAFETY SPECIALIST) [facility] WBC 4.7 3.8 - 9.9 K/cumm Hgb 12.5(L) 13.0 - 17.5 g/dL [facility] Hct 37.4(L) 38.9 - 50.3 % [facility] Plt 145(L) 150 - 400 K/cumm [facility] MPV 12.6(H) 9.1 - 12.3 fL [facility] RBC 3.94(L) 4.30 - 5.80 M/cumm [facility] MCV 94.9 81.3 - 96.4 fL [facility] MCH 31.7 27.1 - 33.3 pg [facility] MCHC 33.4 32.3 - 35.7 g/dL [facility] RDW CV 12.9 11.1 - 14.9 % [facility] RDW SD 45.1 35.7 - 48.1 fL [facility] NRBC abs 0.00 0.00 - 0.01 K/cumm [facility] Blood 06/23/2024 9:07 AM SAFETY SPECIALIST 06/23/2024 9:28 AM SAFETY SPECIALIST us Patricai Bryant MD LAB BLOOD ORDERABLES Final Res ult [facility] [place] [address] * eGFR (06/23/2024 9:00 AM SAFETY SPECIALIST) eGFR >90 >=60 mL/min/1. 73 m2 Comment: [...] last reviewed 2021. Blood 06/23/2024 9:00 AM SAFETY SPECIALIST 06/23/2024 10:59 AM SAFETY SPECIALIST us Patricia Bryant MD LAB BLOOD ORDERABLES Final Res ult Performing Organization Address [facility] de Phone Number [facility] [place] [address] * Phosphorus (06/23/2024 9:00 AM SAFETY SPECIALIST) Phosphorus, pl 2.3 2.3 - 4.5 mg/dL Blood 06/23/2024 9:00 AM SAFETY SPECIALIST 06/23/2024 10:59 AM SAFETY SPECIALIST Patricia Bryant MD LAB BLOOD ORDERABLES Final Res ult Performing Organization Address [facility] de Phone Number [facility] [place] [address] * Magnesium (06/23/2024 9:00 AM SAFETY SPECIALIST) Magnesium 1.7 1.4 - 2.5 mg/dL Blood 06/23/2024 9:00 AM SAFETY SPECIALIST 06/23/2024 10:59 AM SAFETY SPECIALIST Result [facility] Patricia Bryant MD LAB BLOOD ORDERABLES Final Res ult Performing Organization Address [facility] de Phone Number [facility] [place] [address] * Vancomycin level trough (06/23/2024 9:00 AM SAFETY SPECIALIST) Vancomycin trough 15.2 10.0 - 20.0 mcg/mL Blood 06/23/2024 9:00 AM SAFETY SPECIALIST 06/23/2024 10:59 AM SAFETY SPECIALIST Result Rose Batesieri MD LAB BLOOD ORDERABLES Final Res ult [facility] [place] [address] * (ABNORMAL) Basic metabolic panel (06/23/2024 9:00 AM SAFETY SPECIALIST) Sodium 143 135 - 145 mmol/L Potassium, pl 3.7 3.3 - 4.9 mmol/L [facility] Chloride 108 97 - 110 mmol/L [facility] CO2 28 22 - 32 mmol/L [facility] Anion gap 7 2 - 15 mmol/L [facility] BUN 3(L) 6 - 25 mg/dL [facility] Creatinine 0.50(L) 0.80 - 1.30 mg/dL [facility] Glucose 271(H) 70 - 199 mg/dL [facility] Comment: Interpretive Data Fasting glucose >/= 126 [...] 2022. Calcium 9.0 8.5 - 10.3 mg/dL [facility] Blood 06/23/2024 9:00 AM SAFETY SPECIALIST 06/23/2024 10:59 AM SAFETY SPECIALIST Patricia Bryant MD LAB BLOOD ORDERABLES Final Res ult [facility] [place] [address] * IR G To GJ-Tube Replacement (06/22/2024 1:24 PM SAFETY SPECIALIST) Anatomical Region Laterality Modality Body N/A X-Ray Angiograph y 06/22/2024 1:47 PM SAFETY SPECIALIST Impressions 06/22/2024 4:13 PM SAFETY SPECIALIST Successful percutaneous 18 Fr 45 cm gastrojejunostomy [...] Sean Hillman M.D. Narrative 06/22/2024 4:13 PM SAFETY SPECIALIST EXAMINATION: GASTROJEJUNOSTOMY TUBE EXCHANGE HISTORY/INDICATION: 64 yo [...] procedure. TECHNIQUE: Prior to beginning the procedure, Vaughn Protocol was performed to confirm the patient's [...] placed in the proximal jejunum. A 18 Vincentian, 45 cm long JELLY single/double lumen gastrojejunostomy [...] procedure. TECHNIQUE: Prior to beginning the procedure, Vaughn Protocol was performed to confirm the patient's [...] placed in the proximal jejunum. A 18 Vincentian, 45 cm long JELLY single/double lumen gastrojejunostomy [...] Sean Hillman M.D. us Patricia Bryant MD [facility] IR PROCEDURES Final Result * C. difficile testing Stool (06/21/2024 11:11 AM SAFETY SPECIALIST) [facility] Result Negative Negative Toxin Result Negative Negative [facility] C. diff result Negative, free toxin Negative, free toxin [facility] C. diff interp Negative for toxigenic Clostridioides (Clostridium) difficile. Analysis was performed using a glutamate dehydrogenase antigen detection assay combined with a C. difficile toxin detection assay. [facility] Stool 06/21/2024 11:1 1 AM SAFETY SPECIALIST 06/21/2024 12:55 PM SAFETY SPECIALIST Narrative [facility] - 06/21/2024 2:38 PM SAFETY SPECIALIST Testing for C. difficile is not recommended within 4 days of a negative result, 10 days of a positive, or 24 hours after laxative administration. If this order is clinically indicated, contact the lab and enter the passcode to complete this order.->[id number] Patricia Bryant MD LAB MICROBIOLOGY - GENERAL ORD ERABLES Final Result Performing Organization Address City/[facility]/ZIP Co de Phone Number [facility] [place] [address] * Infection Prevention VRE Culture Stool (06/21/2024 11:10 AM SAFETY SPECIALIST) Pathologist [facility] Report Final Report: Negative Stool 06/21/2024 11:1 0 AM SAFETY SPECIALIST 06/21/2024 2:41 PM SAFETY SPECIALIST Narrative [facility] - 06/23/2024 11:15 PM SAFETY SPECIALIST Surveillance culture for Infection Prevention purposes only; results indicate colonization, not infection requiring treatment. Testing performed by [facility] Microbiology Laboratory ([phone]). Patricia Bryant MD LAB MICROBIOLOGY - GENERAL ORD ERABLES Final Result [facility] [place] [address] * Vancomycin level trough Draw trough 30 minutes prior to 4th dose. (06/21/2024 7:16 AM SAFETY SPECIALIST) Pathologist [facility] Vancomycin trough 16.8 10.0 - 20.0 mcg/mL Blood 06/21/2024 7:16 AM SAFETY SPECIALIST 06/21/2024 7:27 AM SAFETY SPECIALIST Narrative [facility] - 06/21/2024 8:10 AM SAFETY SPECIALIST Draw trough 30 minutes prior to 4th dose. Patricia Bryant MD LAB BLOOD ORDERABLES Final Res ult Performing Organization Address City/[facility]/ZIP Co de Phone Number [facility] [place] [address] * eGFR (06/21/2024 5:03 AM SAFETY SPECIALIST) eGFR >90 >=60 mL/min/1. 73 m2 Comment: [...] last reviewed 2021. Blood 06/21/2024 5:03 AM SAFETY SPECIALIST 06/21/2024 5:14 AM SAFETY SPECIALIST Patricia Bryant MD LAB BLOOD ORDERABLES Final Res ult Performing Organization Address City/[facility]/ZIP Co de Phone Number [facility] [place] [address] * Differential, auto (06/21/2024 5:03 AM SAFETY SPECIALIST) Neutrophil abs 1.7 1.5 - 6.5 K/cumm Imm gran abs 0.0 0.0 - 0.1 K/cumm [facility] Lymphocyte abs 1.7 0.8 - 3.3 K/cumm [facility] Monocyte abs 0.6 0.2 - 0.8 K/cumm [facility] Eosinophil abs 0.3 0.0 - 0.5 K/cumm [facility] Basophil abs 0.0 0.0 - 0.1 K/cumm [facility] Neutrophil pct 38.8 % [facility] Comment: Interpretive Data Percent cell count reference ranges are not reported, since discordance with absolute values may lead to misinterpretation of CBC data. Current Interpretive Data was last revised on 2017. Imm gran pct 0.2 % [facility] Comment: Interpretive Data Percent cell count reference ranges are not reported, since discordance with absolute values may lead to misinterpretation of CBC data. Current Interpretive Data was last revised on 2017. Lymphocyte pct 40.5 % [facility] Comment: Interpretive Data Percent cell count reference ranges are not reported, since discordance with absolute values may lead to misinterpretation of CBC data. Current Interpretive Data was last revised on 2017. Monocyte pct 13.4 % [facility] Comment: Interpretive Data Percent cell count reference ranges are not reported, since discordance with absolute values may lead to misinterpretation of CBC data. Current Interpretive Data was last revised on 2017. Eosinophil pct 6.6 % [facility] Comment: Interpretive Data Percent cell count reference ranges are not reported, since discordance with absolute values may lead to misinterpretation of CBC data. Current Interpretive Data was last revised on 2017. Basophil pct 0.5 % [facility] Comment: Interpretive Data Percent cell count reference ranges are not reported, since discordance with absolute values may lead to misinterpretation of CBC data. Current Interpretive Data was last revised on 2017. Blood 06/21/2024 5:03 AM SAFETY SPECIALIST 06/21/2024 5:14 AM SAFETY SPECIALIST us Patricia Bryant MD LAB BLOOD ORDERABLES Final Res ult [facility] [place] [address] * (ABNORMAL) CBC with auto differential (06/21/2024 5:03 AM SAFETY SPECIALIST) Pathologist [facility] WBC 4.3 3.8 - 9.9 K/cumm Hgb 11.6(L) 13.0 - 17.5 g/dL [facility] Hct 34.5(L) 38.9 - 50.3 % [facility] Plt 132(L) 150 - 400 K/cumm [facility] MPV 11.3 9.1 - 12.3 fL [facility] RBC 3.53(L) 4.30 - 5.80 M/cumm [facility] MCV 97.7(H) 81.3 - 96.4 fL [facility] MCH 32.9 27.1 - 33.3 pg [facility] MCHC 33.6 32.3 - 35.7 g/dL [facility] RDW CV 13.4 11.1 - 14.9 % [facility] RDW SD 48.0 35.7 - 48.1 fL [facility] NRBC abs 0.00 0.00 - 0.01 K/cumm [facility] Blood 06/21/2024 5:03 AM SAFETY SPECIALIST 06/21/2024 5:14 AM SAFETY SPECIALIST us Patricia Bryant MD LAB BLOOD ORDERABLES Final Res ult Performing Organization Address City/[facility] Co de Phone Number [facility] [place] [address] * Phosphorus (06/21/2024 5:03 AM SAFETY SPECIALIST) [facility] Phosphorus, pl 3.1 2.3 - 4.5 mg/dL Blood 06/21/2024 5:03 AM SAFETY SPECIALIST 06/21/2024 5:14 AM SAFETY SPECIALIST Patricia Bryant MD LAB BLOOD ORDERABLES Final Res ult [facility] [place] [address] * Magnesium (06/21/2024 5:03 AM SAFETY SPECIALIST) Pathologist [facility] Magnesium 1.9 1.4 - 2.5 mg/dL Blood 06/21/2024 5:03 AM SAFETY SPECIALIST 06/21/2024 5:14 AM SAFETY SPECIALIST Patricia Bryant MD LAB BLOOD ORDERABLES Final Res ult [facility] [place] [address] * (ABNORMAL) Comprehensive metabolic panel (06/21/2024 5:03 AM SAFETY SPECIALIST) [facility] Sodium 145 135 - 145 mmol/L Potassium, pl 3.4 3.3 - 4.9 mmol/L [facility] Chloride 112(H) 97 - 110 mmol/L [facility] CO2 27 22 - 32 mmol/L [facility] Anion gap 6 2 - 15 mmol/L [facility] BUN 9 6 - 25 mg/dL [facility] Creatinine 0.57(L) 0.80 - 1.30 mg/dL [facility] Glucose 106 70 - 199 mg/dL [facility] Comment: Interpretive Data Fasting glucose >/= 126 [...] 2022. Calcium 8.6 8.5 - 10.3 mg/dL [facility] Bilirubin, total 0.2 0.1 - 1.2 mg/dL [facility] Protein, pl 5.6(L) 6.5 - 8.5 g/dL [facility] Albumin 2.7(L) 3.5 - 5.0 g/dL [facility] Alk phos 61 40 - 130 Units/L [facility] ALT 15 7 - 55 Units/L [facility] AST 25 10 - 50 Units/L [facility] Blood 06/21/2024 5:03 AM SAFETY SPECIALIST 06/21/2024 5:14 AM SAFETY SPECIALIST Patricia Bryant MD LAB BLOOD ORDERABLES Final Res ult Performing Organization Address [facility]/ZIP Co de Phone Number 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 Patricia Bryant MD LAB MICROBIOLOGY - GENERAL ORD ERABLES Final Result Performing Organization Address [facility] Co de Phone Number [facility] [place] [address] * XR Abdomen Ap 1 Vw (06/20/2024 10:29 AM SAFETY SPECIALIST) Anatomical Region Laterality Modality Body, Abdomen N/A Computed Radiogr aphy 06/20/2024 10:5 3 AM SAFETY SPECIALIST Impressions 06/20/2024 11:51 AM SAFETY SPECIALIST Gastrostomy tube. Colonic distention is improved. No radiographic evidence of obstruction. Dictated by: Hunter Hernandez M.D. (Ramanan) The radiology attending physician has personally reviewed this study, and had reviewed and/or edited this written report and agrees with it. Electronically signed by: Byron Moya M.D. Narrative 06/20/2024 11:51 AM SAFETY SPECIALIST EXAMINATION: Abdomen, one view. HISTORY: Abdominal distention. [...] and culture Urine, bladder (06/19/2024 9:34 PM SAFETY SPECIALIST) Color, ur Straw Yellow Clarity, ur Clear Clear [facility] Specific gravity, ur 1.021 1.003 - 1.030 [facility] pH, urine 7.0 [facility] Comment: Interpretive Data U rine pH is affected by diet, medications, systemic acid-base disturbances, and renal tubular function. pH may affect urinary stone formation. For example, urine pH below 6.0 may help reduce the tendency for calcium phosphate stones and pH greater than 6.0 may reduce the tendency for uric acid stone formation. Source: [email or web address] Current Interpretive Data was last revised on 2017 Protein, ur ql 1+(A) Negative [facility] Glucose, ur ql Negative Negative [facility] Ketones, ur Negative Negative [facility] Bilirubin, ur Negative Negative [facility] Blood, ur Negative Negative [facility] Urobilinogen, ur <2.0 <2.0 mg/dL [facility] Nitrite, ur Negative Negative [facility] Leukocyte esterase, ur Negative Negative [facility] UA reflex comment Reflex to microscopic UA will be performed. [facility] Urine, bladder 06/19/2024 9: 34 PM SAFETY SPECIALIST 06/19/2024 10:05 PM SAFETY SPECIALIST Patricia Bryant MD LAB MICROBIOLOGY - GENERAL ORD ERABLES Final Result Performing Organization Address [facility] Co de Phone Number [facility] [place] [address] * Urinalysis, microscopic only (06/19/2024 9:34 PM SAFETY SPECIALIST) WBC, ur 0-5 0 - 5 /HPF RBC, ur 0-2 0 - 2 /HPF [facility] Epithelial cells, squamous, ur 1-5 0 - 5 /HPF [facility] Culture Reflex Comment Reflex conditions for urine culture (WBC >10) not met. [facility] Urine, bladder 06/19/2024 9: 34 PM SAFETY SPECIALIST 06/19/2024 10:05 PM SAFETY SPECIALIST Patricia Bryant MD LAB URINE ORDERABLES Final Res ult Performing Organization Address [facility] de Phone Number [facility] [place] [address] * (ABNORMAL) Differential, auto (06/19/2024 9:28 PM SAFETY SPECIALIST) Neutrophil abs 6.0 1.5 - 6.5 K/cumm Imm gran abs 0.0 0.0 - 0.1 K/cumm [facility] Lymphocyte abs 0.7(L) 0.8 - 3.3 K/cumm [facility] Monocyte abs 0.2 0.2 - 0.8 K/cumm [facility] Eosinophil abs 0.2 0.0 - 0.5 K/cumm [facility] Basophil abs 0.0 0.0 - 0.1 K/cumm [facility] Neutrophil pct 84.1 % [facility] Comment: Interpretive Data Percent cell count reference ranges are not reported, since discordance with absolute values may lead to misinterpretation of CBC data. Current Interpretive Data was last revised on 2017. Imm gran pct 0.4 % [facility] Comment: Interpretive Data Percent cell count reference ranges are not reported, since discordance with absolute values may lead to misinterpretation of CBC data. Current Interpretive Data was last revised on 2017. Lymphocyte pct 10.1 % [facility] Comment: Interpretive Data Percent cell count reference ranges are not reported, since discordance with absolute values may lead to misinterpretation of CBC data. Current Interpretive Data was last revised on 2017. Monocyte pct 2.9 % [facility] Comment: Interpretive Data Percent cell count reference ranges are not reported, since discordance with absolute values may lead to misinterpretation of CBC data. Current Interpretive Data was last revised on 2017. Eosinophil pct 2.4 % [facility] Comment: Interpretive Data Percent cell count reference ranges are not reported, since discordance with absolute values may lead to misinterpretation of CBC data. Current Interpretive Data was last revised on 2017. Basophil pct 0.1 % [facility] Comment: Interpretive Data Percent cell count reference ranges are not reported, since discordance with absolute values may lead to misinterpretation of CBC data. Current Interpretive Data was last revised on 2017. Blood 06/19/2024 9:28 PM SAFETY SPECIALIST 06/19/2024 10:38 PM SAFETY SPECIALIST us Patricia Bryant MD LAB BLOOD ORDERABLES Final Res ult [facility] [place] [address] * Lacosamide level (06/19/2024 9:28 PM SAFETY SPECIALIST) Lacosamide 9.6 1.0 - 10.0 mcg/mL [facility] Comment: ADDITIONAL INFORMATION This test was developed and its performance characteristics determined by [facility] in a manner consistent with CLIA requirements. This test has not been cleared or approved by the U.S. Food and Drug Administration. Test Performed by: [facility] - [facility] [address] [place] [address] Stock Hanger: Marianela Odonnell Ph.D.; CLIA# [id number] Blood 06/19/2024 9:28 PM SAFETY SPECIALIST 06/19/2024 11:01 PM SAFETY SPECIALIST Narrative [facility] - 06/22/2024 10:25 AM SAFETY SPECIALIST Please get level before lacosamide dose is given us Patricia Bryant MD LAB BLOOD ORDERABLES Final Res ult [facility] [place] [address] [facility] * (ABNORMAL) CBC with auto differential (06/19/2024 9:28 PM SAFETY SPECIALIST) WBC 7.1 3.8 - 9.9 K/cumm Hgb 12.5(L) 13.0 - 17.5 g/dL [facility] Hct 37.0(L) 38.9 - 50.3 % [facility] Plt 152 150 - 400 K/cumm [facility] MPV 12.6(H) 9.1 - 12.3 fL [facility] RBC 3.90(L) 4.30 - 5.80 M/cumm [facility] MCV 94.9 81.3 - 96.4 fL [facility] MCH 32.1 27.1 - 33.3 pg [facility] MCHC 33.8 32.3 - 35.7 g/dL [facility] RDW CV 13.4 11.1 - 14.9 % [facility] RDW SD 46.8 35.7 - 48.1 fL [facility] NRBC abs 0.00 0.00 - 0.01 K/cumm [facility] Blood 06/19/2024 9:28 PM SAFETY SPECIALIST 06/19/2024 10:38 PM SAFETY SPECIALIST Patricia Bryant MD LAB BLOOD ORDERABLES Final Res ult Performing Organization Address City/[facility]/ZIP Co de Phone Number [facility] [place] [address] * Valproic acid level, total (06/19/2024 9:28 PM SAFETY SPECIALIST) [facility] Valproic Acid 76.0 50.0 - 100.0 mcg/mL Comment: Interpretive Data Therapeutic or toxic effects of anticonvulsant drugs may occur at different concentrations in different patients and the correlation between dose and clinical effect must be evaluated individually. Current interpretative data was last revised on 13. Blood 06/19/2024 9:28 PM SAFETY SPECIALIST 06/19/2024 10:39 PM SAFETY SPECIALIST Narrative [facility] - 06/19/2024 11:40 PM SAFETY SPECIALIST Please get level before dose is given Patricia Bryant MD LAB BLOOD ORDERABLES Final Res ult [facility] [place] [address] * Respiratory pathogen panel Nasopharyngeal (06/19/2024 9:10 PM SAFETY SPECIALIST) [facility] Influenza A RNA Not Detected Not Detected Influenza B RNA Not Detected Not Detected [facility] RSV RNA Not Detected Not Detected [facility] COVID-19 RNA Not Detected Not Detected [facility] Coronavirus 229E RNA Not Detected Not Detected [facility] Coronavirus HKU1 RNA Not Detected Not Detected [facility] Coronavirus NL63 RNA Not Detected Not Detected [facility] Coronavirus OC43 RNA Not Detected Not Detected [facility] Adenovirus DNA Not Detected Not Detected [facility] Metapneumovirus RNA Not Detected Not Detected [facility] Rhinovirus/Enterov irus RNA Not Detected Not Detected [facility] Parainfluenza 1 RNA Not Detected Not Detected [facility] Parainfluenza 2 RNA Not Detected Not Detected [facility] Parainfluenza 3 RNA Not Detected Not Detected [facility] Parainfluenza 4 RNA Not Detected Not Detected [facility] B. pertussis DNA Not Detected Not Detected [facility] B. parapertussis DNA Not Detected Not Detected [facility] C. pneumoniae DNA Not Detected Not Detected [facility] M. pneumoniae DNA Not Detected Not Detected [facility] Nasopharyngeal 06/19/2024 9: 10 PM SAFETY SPECIALIST 06/19/2024 10:06 PM SAFETY SPECIALIST Narrative [facility] - 06/19/2024 11:35 PM SAFETY SPECIALIST Is the Patient experiencing symptoms consistent with COVID?->Yes Surveillance testing for transplant patient?->No Interpretive Data The [employer] Mobile FilmArray Respiratory Panel (RP2.1) assay is a [...] assay has FDA clearance for testing of SOFTWARE QUALITY AUTOMATION ENGINEER swabs. The performance of additional specimen types has been assessed by the performing laboratory. The performance characteristics of this assay have been determined by [facility] Molecular Infectious Disease Laboratory. Current interpretive data was last revised on 22. Patricia Bryant MD LAB MICROBIOLOGY - GENERAL ORD ERABLES Final Result [facility] [place] [address] * (ABNORMAL) Aerobic culture and gram stain Tracheal aspirate Tracheal (06/19/2024 6:53 PM SAFETY SPECIALIST) Direct Specimen Exam Stain: Abundant polymorphonuclear leukocytes seen. Few squamous epithelial cells seen. Moderate mixed bacterial domenico seen on Gram stain. Report Final Report: Greater than or equal to 100,000 colonies/ml of Staphylococcus aureus Methicillin resistant (MRSA) by penicillin binding protein 2a (PBP2a) testing. Plus growth of clinically insignificant bacterial domenico. (.) [facility] Organism STAPHYLOCOCCUS AUREUS [facility] Organism PLUS GROWTH OF CLINICALLY INSIGNIFICANT DOMENICO. [facility] Tracheal aspirate (Tracheal) 06/19/2024 6:53 PM SAFETY SPECIALIST 06/19/2024 8:18 PM SAFETY SPECIALIST Narrative [facility] - 06/27/2024 2:52 PM SAFETY SPECIALIST Testing performed by [facility]biology Laboratory ([phone]) Specimens submitted from normally sterile body sites [...] - GENERAL ORD ERABLES Final Result [facility] [place] [address] * XR Chest 1 View (06/19/2024 6:47 PM SAFETY SPECIALIST) Anatomical Region Laterality Modality Body, Chest N/A Digital Radiogra phy 06/20/2024 2:42 PM SAFETY SPECIALIST Impressions 06/20/2024 3:15 PM SAFETY SPECIALIST Comparison is made to 06/19/2024 at 3:32 [...] Herve Payne M.D. Narrative 06/20/2024 3:15 PM SAFETY SPECIALIST EXAMINATION: 1 view chest radiograph Procedure Note [...] agrees with it. Electronically signed by: Herve S. Glazer, M.D. us Patricia Bryant MD IMG XR PROCEDURES Final Result * Respiratory pathogen panel Tracheal aspirate (06/19/2024 6:46 PM SAFETY SPECIALIST) Pathologist [facility] Influenza A RNA Not Detected Not Detected Influenza B RNA Not Detected Not Detected [facility] RSV RNA Not Detected Not Detected [facility] COVID-19 RNA Not Detected Not Detected [facility] Coronavirus 229E RNA Not Detected Not Detected [facility] Coronavirus HKU1 RNA Not Detected Not Detected [facility] Coronavirus NL63 RNA Not Detected Not Detected [facility] Coronavirus OC43 RNA Not Detected Not Detected [facility] Adenovirus DNA Not Detected Not Detected [facility] Metapneumovirus RNA Not Detected Not Detected [facility] Rhinovirus/Enterov irus RNA Not Detected Not Detected [facility] Parainfluenza 1 RNA Not Detected Not Detected [facility] Parainfluenza 2 RNA Not Detected Not Detected [facility] Parainfluenza 3 RNA Not Detected Not Detected [facility] Parainfluenza 4 RNA Not Detected Not Detected [facility] B. pertussis DNA Not Detected Not Detected [facility] B. parapertussis DNA Not Detected Not Detected [facility] C. pneumoniae DNA Not Detected Not Detected [facility] M. pneumoniae DNA Not Detected Not Detected [facility] Tracheal aspirate 06/19/2024 6:46 PM SAFETY SPECIALIST 06/20/2024 7:55 AM SAFETY SPECIALIST Narrative [facility] - 06/20/2024 8:58 AM SAFETY SPECIALIST Is the Patient experiencing symptoms consistent with COVID?->Yes Surveillance testing for transplant patient?->No Interpretive Data The [employer] Mobile Film[employer] Respiratory Panel (RP2.1) assay is a [...] assay has FDA clearance for testing of SOFTWARE QUALITY AUTOMATION ENGINEER swabs. The performance of additional specimen types has been assessed by the performing laboratory. The performance characteristics of this assay have been determined by [facility] Molecular Infectious Disease Laboratory. Current interpretive data was last revised on 22. us Patricia Bryant MD LAB MICROBIOLOGY - GENERAL ORD ERABLES Final Result [facility] [place] [address] * XR Abdomen Ap 1 Vw (06/19/2024 4:09 PM SAFETY SPECIALIST) Anatomical Region Laterality Modality Body, Abdomen N/A Digital Radiogra phy 06/19/2024 4:35 PM SAFETY SPECIALIST Impressions 06/19/2024 5:03 PM SAFETY SPECIALIST Diffuse mild gaseous bowel distention, similar to the prior exam and could represent ileus. Partially imaged gastrostomy tube. Dictated by: Hunter Hernandez M.D. (Ramanan) The radiology attending physician has personally reviewed this study, and had reviewed and/or edited this written report and agrees with it. Electronically signed by: Lupillo Lugo M.D. Narrative 06/19/2024 5:03 PM SAFETY SPECIALIST EXAMINATION: Abdomen, one view. HISTORY: Abdominal pain [...] XR Chest 1 View (06/19/2024 4:08 PM SAFETY SPECIALIST) Anatomical Region Laterality Modality Body, Chest N/A Digital Radiogra phy 06/19/2024 4:21 PM SAFETY SPECIALIST Impressions 06/19/2024 4:21 PM SAFETY SPECIALIST The current study is compared with the [...] Elif Patel M.D. Narrative 06/19/2024 4:21 PM SAFETY SPECIALIST EXAMINATION: 1 view chest radiograph Procedure Note [...] Final Result * eGFR (06/19/2024 2:47 PM SAFETY SPECIALIST) eGFR >90 >=60 mL/min/1. 73 m2 Comment: [...] last reviewed 2021. Blood 06/19/2024 2:47 PM SAFETY SPECIALIST 06/19/2024 3:03 PM SAFETY SPECIALIST Patricia Bryant MD LAB BLOOD ORDERABLES Final Res ult [facility] [place] [address] * Differential, auto (06/19/2024 2:47 PM SAFETY SPECIALIST) Neutrophil abs 5.5 1.5 - 6.5 K/cumm Imm gran abs 0.0 0.0 - 0.1 K/cumm [facility] Lymphocyte abs 0.9 0.8 - 3.3 K/cumm [facility] Monocyte abs 0.2 0.2 - 0.8 K/cumm [facility] Eosinophil abs 0.3 0.0 - 0.5 K/cumm [facility] Basophil abs 0.0 0.0 - 0.1 K/cumm [facility] Neutrophil pct 79.8 % [facility] Comment: Interpretive Data Percent cell count reference ranges are not reported, since discordance with absolute values may lead to misinterpretation of CBC data. Current Interpretive Data was last revised on 2017. Imm gran pct 0.4 % [facility] Comment: Interpretive Data Percent cell count reference ranges are not reported, since discordance with absolute values may lead to misinterpretation of CBC data. Current Interpretive Data was last revised on 2017. Lymphocyte pct 13.4 % [facility] Comment: Interpretive Data Percent cell count reference ranges are not reported, since discordance with absolute values may lead to misinterpretation of CBC data. Current Interpretive Data was last revised on 2017. Monocyte pct 2.5 % [facility] Comment: Interpretive Data Percent cell count reference ranges are not reported, since discordance with absolute values may lead to misinterpretation of CBC data. Current Interpretive Data was last revised on 2017. Eosinophil pct 3.8 % [facility] Comment: Interpretive Data Percent cell count reference ranges are not reported, since discordance with absolute values may lead to misinterpretation of CBC data. Current Interpretive Data was last revised on 2017. Basophil pct 0.1 % [facility] Comment: Interpretive Data Percent cell count reference ranges are not reported, since discordance with absolute values may lead to misinterpretation of CBC data. Current Interpretive Data was last revised on 2017. Blood 06/19/2024 2:47 PM SAFETY SPECIALIST 06/19/2024 3:04 PM SAFETY SPECIALIST us Patricia Bryant MD LAB BLOOD ORDERABLES Final Res ult [facility] [place] [address] * (ABNORMAL) CBC with auto differential (06/19/2024 2:47 PM SAFETY SPECIALIST) [facility] WBC 6.9 3.8 - 9.9 K/cumm Hgb 14.2 13.0 - 17.5 g/dL [facility] Hct 42.4 38.9 - 50.3 % [facility] Plt 135(L) 150 - 400 K/cumm [facility] MPV 12.6(H) 9.1 - 12.3 fL [facility] RBC 4.47 4.30 - 5.80 M/cumm [facility] MCV 94.9 81.3 - 96.4 fL [facility] MCH 31.8 27.1 - 33.3 pg [facility] MCHC 33.5 32.3 - 35.7 g/dL [facility] RDW CV 13.2 11.1 - 14.9 % [facility] RDW SD 46.5 35.7 - 48.1 fL [facility] NRBC abs 0.00 0.00 - 0.01 K/cumm [facility] Blood 06/19/2024 2:47 PM SAFETY SPECIALIST 06/19/2024 3:04 PM SAFETY SPECIALIST Patricia Bryant MD LAB BLOOD ORDERABLES Final Res ult Performing Organization Address [facility] de Phone Number [facility] [place] [address] * (ABNORMAL) Phosphorus (06/19/2024 2:47 PM SAFETY SPECIALIST) [facility] Phosphorus, pl 2.2(L) 2.3 - 4.5 mg/dL Blood 06/19/2024 2:47 PM SAFETY SPECIALIST 06/19/2024 3:03 PM SAFETY SPECIALIST Patricia Bryant MD LAB BLOOD ORDERABLES Final Res ult Performing Organization Address City/[facility] Co de Phone Number [facility] [place] [address] * Magnesium (06/19/2024 2:47 PM SAFETY SPECIALIST) [facility] Magnesium 2.0 1.4 - 2.5 mg/dL Blood 06/19/2024 2:47 PM SAFETY SPECIALIST 06/19/2024 3:03 PM SAFETY SPECIALIST Patricia Bryant MD LAB BLOOD ORDERABLES Final Res ult [facility] [place] [address] * (ABNORMAL) Comprehensive metabolic panel (06/19/2024 2:47 PM SAFETY SPECIALIST) [facility] Sodium 144 135 - 145 mmol/L Potassium, pl 3.9 3.3 - 4.9 mmol/L [facility] Comment:Hemolyzed; Potassium value may be falsely elevated by as much as 0.3-0.5 mmol/L. Suggest redraw and reanalysis. Chloride 105 97 - 110 mmol/L [facility] CO2 29 22 - 32 mmol/L [facility] Anion gap 10 2 - 15 mmol/L [facility] BUN 7 6 - 25 mg/dL [facility] Creatinine 0.62(L) 0.80 - 1.30 mg/dL [facility] Glucose 113 70 - 199 mg/dL [facility] Comment: Interpretive Data Fasting glucose >/= 126 [...] 2022. Calcium 9.5 8.5 - 10.3 mg/dL [facility] Bilirubin, total 0.2 0.1 - 1.2 mg/dL [facility] Protein, pl 7.2 6.5 - 8.5 g/dL [facility] Albumin 3.7 3.5 - 5.0 g/dL [facility] Alk phos 91 40 - 130 Units/L [facility] ALT 13 7 - 55 Units/L [facility] AST 28 10 - 50 Units/L [facility] Comment:Hemolyzed; result ma y be falsely elevated Blood 06/19/2024 2:47 PM SAFETY SPECIALIST 06/19/2024 3:03 PM SAFETY SPECIALIST Patricia Bryant MD LAB BLOOD ORDERABLES Final Res ult Performing Organization Address City/[facility]/ZIP Co de Phone Number [facility] [place] [address] * POCT glucose (06/19/2024 2:25 PM SAFETY SPECIALIST) Glucose, POC 125 70 - 199 mg/dL Blood 06/19/2024 2:25 PM SAFETY SPECIALIST 06/19/2024 2:25 PM SAFETY SPECIALIST Patricia Bryant MD LAB POCT ORDERABLES - DEVICE F inal Result Performing Organization Address [facility] de Phone Number [facility] [place] [address] * XR Abdomen Ap 1 Vw (06/16/2024 6:16 PM SAFETY SPECIALIST) Anatomical Region Laterality Modality Body, Abdomen N/A Computed Radiogr aphy 06/16/2024 6:56 PM SAFETY SPECIALIST Impressions 06/16/2024 6:56 PM SAFETY SPECIALIST Gastrostomy tube is present. Aerated bowel seen throughout the abdomen. The gaseous distention is improved from the prior examination. Distal rectal air is not definitively visualized. No pneumoperitoneum. Electronically signed by: Sekou Wolf M.D. Narrative 06/16/2024 6:56 PM SAFETY SPECIALIST EXAMINATION: Abdomen, one view. HISTORY: Abdominal distension. [...] Res ult * eGFR (06/16/2024 12:42 PM SAFETY SPECIALIST) eGFR >90 >=60 mL/min/1. 73 m2 Comment: [...] reviewed 2021. Blood 06/16/2024 12:4 2 PM SAFETY SPECIALIST 06/16/2024 12:49 PM SAFETY SPECIALIST us Misael Felix MD LAB BLOOD ORDERABLES Final Result [facility] [place] [address] * Differential, auto (06/16/2024 12:42 PM SAFETY SPECIALIST) Neutrophil abs 2.5 1.5 - 6.5 K/cumm Imm gran abs 0.0 0.0 - 0.1 K/cumm [facility] Lymphocyte abs 2.4 0.8 - 3.3 K/cumm [facility] Monocyte abs 0.4 0.2 - 0.8 K/cumm [facility] Eosinophil abs 0.4 0.0 - 0.5 K/cumm [facility] Basophil abs 0.0 0.0 - 0.1 K/cumm [facility] Neutrophil pct 42.8 % [facility] Comment: Interpretive Data Percent cell count reference ranges are not reported, since discordance with absolute values may lead to misinterpretation of CBC data. Current Interpretive Data was last revised on 2017. Imm gran pct 0.2 % [facility] Comment: Interpretive Data Percent cell count reference ranges are not reported, since discordance with absolute values may lead to misinterpretation of CBC data. Current Interpretive Data was last revised on 2017. Lymphocyte pct 42.2 % [facility] Comment: Interpretive Data Percent cell count reference ranges are not reported, since discordance with absolute values may lead to misinterpretation of CBC data. Current Interpretive Data was last revised on 2017. Monocyte pct 6.7 % [facility] Comment: Interpretive Data Percent cell count reference ranges are not reported, since discordance with absolute values may lead to misinterpretation of CBC data. Current Interpretive Data was last revised on 2017. Eosinophil pct 7.7 % [facility] Comment: Interpretive Data Percent cell count reference ranges are not reported, since discordance with absolute values may lead to misinterpretation of CBC data. Current Interpretive Data was last revised on 2017. Basophil pct 0.4 % [facility] Comment: Interpretive Data Percent cell count reference ranges are not reported, since discordance with absolute values may lead to misinterpretation of CBC data. Current Interpretive Data was last revised on 2017. Blood 06/16/2024 12:4 2 PM SAFETY SPECIALIST 06/16/2024 12:49 PM SAFETY SPECIALIST Misael Felix MD LAB BLOOD ORDERABLES Final Result [facility] [place] [address] * (ABNORMAL) CBC with auto differential (06/16/2024 12:42 PM SAFETY SPECIALIST) Pathologist [facility] WBC 5.7 3.8 - 9.9 K/cumm Hgb 12.2(L) 13.0 - 17.5 g/dL [facility] Hct 36.6(L) 38.9 - 50.3 % [facility] Plt 156 150 - 400 K/cumm [facility] MPV 12.6(H) 9.1 - 12.3 fL [facility] RBC 3.85(L) 4.30 - 5.80 M/cumm [facility] MCV 95.1 81.3 - 96.4 fL [facility] MCH 31.7 27.1 - 33.3 pg [facility] MCHC 33.3 32.3 - 35.7 g/dL [facility] RDW CV 13.0 11.1 - 14.9 % [facility] RDW SD 45.1 35.7 - 48.1 fL [facility] NRBC abs 0.00 0.00 - 0.01 K/cumm [facility] Blood 06/16/2024 12:4 2 PM SAFETY SPECIALIST 06/16/2024 12:49 PM SAFETY SPECIALIST Misael Felix MD LAB BLOOD ORDERABLES Final Result [facility] [place] [address] * Phosphorus (06/16/2024 12:42 PM SAFETY SPECIALIST) Pathologist [facility] Phosphorus, pl 2.5 2.3 - 4.5 mg/dL Blood 06/16/2024 12:4 2 PM SAFETY SPECIALIST 06/16/2024 12:49 PM SAFETY SPECIALIST Misael Felix MD LAB BLOOD ORDERABLES Final Result [facility] [place] [address] * Magnesium (06/16/2024 12:42 PM SAFETY SPECIALIST) [facility] Magnesium 2.0 1.4 - 2.5 mg/dL Blood 06/16/2024 12:4 2 PM SAFETY SPECIALIST 06/16/2024 12:49 PM SAFETY SPECIALIST Misael Felix MD LAB BLOOD ORDERABLES Final Result Performing Organization Address [facility] de Phone Number [facility] [place] [address] * (ABNORMAL) Comprehensive metabolic panel (06/16/2024 12:42 PM SAFETY SPECIALIST) [facility] Sodium 143 135 - 145 mmol/L Potassium, pl 3.5 3.3 - 4.9 mmol/L [facility] Chloride 111(H) 97 - 110 mmol/L [facility] CO2 26 22 - 32 mmol/L [facility] Anion gap 6 2 - 15 mmol/L [facility] BUN 6 6 - 25 mg/dL [facility] Creatinine 0.56(L) 0.80 - 1.30 mg/dL [facility] Glucose 94 70 - 199 mg/dL [facility] Comment: Interpretive Data Fasting glucose >/= 126 [...] 2022. Calcium 8.9 8.5 - 10.3 mg/dL [facility] Bilirubin, total 0.4 0.1 - 1.2 mg/dL [facility] Protein, pl 6.3(L) 6.5 - 8.5 g/dL [facility] Albumin 3.3(L) 3.5 - 5.0 g/dL [facility] Alk phos 79 40 - 130 Units/L [facility] ALT 10 7 - 55 Units/L [facility] AST 18 10 - 50 Units/L [facility] Blood 06/16/2024 12:4 2 PM SAFETY SPECIALIST 06/16/2024 12:49 PM SAFETY SPECIALIST us Misael Felix MD LAB BLOOD ORDERABLES Final Result [facility] [place] [address] * XR Abdomen Ap 1 Vw (06/15/2024 1:57 AM SAFETY SPECIALIST) Anatomical Region Laterality Modality Body, Abdomen N/A Computed Radiogr aphy 06/15/2024 3:15 PM SAFETY SPECIALIST Impressions 06/15/2024 4:44 PM SAFETY SPECIALIST There is a gastrostomy tube with tip [...] Sean Angel M.D. Narrative 06/15/2024 4:44 PM SAFETY SPECIALIST EXAMINATION: Abdomen, one view. HISTORY: Abdominal distension. [...] Res ult * eGFR (06/13/2024 4:59 AM SAFETY SPECIALIST) eGFR >90 >=60 mL/min/1. 73 m2 Comment: [...] last reviewed 2021. Blood 06/13/2024 4:59 AM SAFETY SPECIALIST 06/13/2024 5:38 AM SAFETY SPECIALIST Ryan Jauregui MD LAB BLOOD ORDERABLES Final Resul t [facility] [place] [address] * (ABNORMAL) Differential, auto (06/13/2024 4:59 AM SAFETY SPECIALIST) Neutrophil abs 10.3(H) 1.5 - 6.5 K/cumm Imm gran abs 0.1 0.0 - 0.1 K/cumm [facility] Lymphocyte abs 3.0 0.8 - 3.3 K/cumm [facility] Monocyte abs 0.9(H) 0.2 - 0.8 K/cumm [facility] Eosinophil abs 0.2 0.0 - 0.5 K/cumm [facility] Basophil abs 0.0 0.0 - 0.1 K/cumm [facility] Neutrophil pct 70.9 % [facility] Comment: Interpretive Data Percent cell count reference ranges are not reported, since discordance with absolute values may lead to misinterpretation of CBC data. Current Interpretive Data was last revised on 2017. Imm gran pct 0.4 % [facility] Comment: Interpretive Data Percent cell count reference ranges are not reported, since discordance with absolute values may lead to misinterpretation of CBC data. Current Interpretive Data was last revised on 2017. Lymphocyte pct 20.7 % [facility] Comment: Interpretive Data Percent cell count reference ranges are not reported, since discordance with absolute values may lead to misinterpretation of CBC data. Current Interpretive Data was last revised on 2017. Monocyte pct 6.5 % [facility] Comment: Interpretive Data Percent cell count reference ranges are not reported, since discordance with absolute values may lead to misinterpretation of CBC data. Current Interpretive Data was last revised on 2017. Eosinophil pct 1.4 % [facility] Comment: Interpretive Data Percent cell count reference ranges are not reported, since discordance with absolute values may lead to misinterpretation of CBC data. Current Interpretive Data was last revised on 2017. Basophil pct 0.1 % [facility] Comment: Interpretive Data Percent cell count reference ranges are not reported, since discordance with absolute values may lead to misinterpretation of CBC data. Current Interpretive Data was last revised on 2017. Blood 06/13/2024 4:59 AM SAFETY SPECIALIST 06/13/2024 5:38 AM SAFETY SPECIALIST us Ryan Jauregui MD LAB BLOOD ORDERABLES Final Resul t [facility] [place] [address] * Lacosamide level (06/13/2024 4:59 AM SAFETY SPECIALIST) [facility] Lacosamide 1.4 1.0 - 10.0 mcg/mL [facility] Comment: ADDITIONAL INFORMATION This test was developed and its performance characteristics determined by [facility] in a manner consistent with CLIA requirements. This test has not been cleared or approved by the U.S. Food and Drug Administration. Test Performed by: [place] [id number] [employer]anger: Marianela Odonnell Ph.D.; CLIA# [id number] Blood 06/13/2024 4:59 AM SAFETY SPECIALIST 06/13/2024 5:38 AM SAFETY SPECIALIST Ryan Jauregui MD LAB BLOOD ORDERABLES Final Resul t [facility] [place] [address] [facility] * (ABNORMAL) CBC with auto differential (06/13/2024 4:59 AM SAFETY SPECIALIST) [facility] WBC 14.6(H) 3.8 - 9.9 K/cumm Hgb 13.2 13.0 - 17.5 g/dL [facility] Hct 39.7 38.9 - 50.3 % [facility] Plt 155 150 - 400 K/cumm [facility] MPV 12.4(H) 9.1 - 12.3 fL [facility] RBC 4.03(L) 4.30 - 5.80 M/cumm [facility] MCV 98.5(H) 81.3 - 96.4 fL [facility] MCH 32.8 27.1 - 33.3 pg [facility] MCHC 33.2 32.3 - 35.7 g/dL [facility] RDW CV 13.6 11.1 - 14.9 % [facility] RDW SD 50.2(H) 35.7 - 48.1 fL [facility] NRBC abs 0.00 0.00 - 0.01 K/cumm [facility] Blood 06/13/2024 4:59 AM SAFETY SPECIALIST 06/13/2024 5:38 AM SAFETY SPECIALIST Ryan Jauregui MD LAB BLOOD ORDERABLES Final Resul t [facility] [place] [address] * Blood culture Blood (06/13/2024 4:59 AM SAFETY SPECIALIST) Report Final Report: No growth Blood 06/13/2024 4:59 AM SAFETY SPECIALIST 06/13/2024 6:21 AM SAFETY SPECIALIST Narrative [facility] - 06/17/2024 7:00 AM SAFETY SPECIALIST From a different site than #1. Collection->Peripheral [...] performance characteristics have been verified by the [facility] Microbiology Laboratory. For questions about this culture, contact the Microbiology Laboratory at [phone]. Interpretive data was last revised on 24. Ryan Jauregui MD LAB MICROBIOLOGY - GENERAL ORDER NICHOLE Final Result Performing Organization Address [facility] de Phone Number [facility] [place] [address] * Phosphorus (06/13/2024 4:59 AM SAFETY SPECIALIST) Phosphorus, pl 3.0 2.3 - 4.5 mg/dL Blood 06/13/2024 4:59 AM SAFETY SPECIALIST 06/13/2024 5:38 AM SAFETY SPECIALIST Ryan Jauregui MD LAB BLOOD ORDERABLES Final Resul t Performing Organization Address [facility] de Phone Number [facility] [place] [address] * Magnesium (06/13/2024 4:59 AM SAFETY SPECIALIST) Magnesium 1.9 1.4 - 2.5 mg/dL Blood 06/13/2024 4:59 AM SAFETY SPECIALIST 06/13/2024 5:38 AM SAFETY SPECIALIST Ryan Jauregui MD LAB BLOOD ORDERABLES Final Resul t Performing Organization Address [facility] Phone Number [facility] [place] [address] * (ABNORMAL) Valproic acid level, total (06/13/2024 4:59 AM SAFETY SPECIALIST) Valproic Acid 48.0(L) 50.0 - 100.0 mcg/mL Comment: Interpretive Data Therapeutic or toxic effects of anticonvulsant drugs may occur at different concentrations in different patients and the correlation between dose and clinical effect must be evaluated individually. Current interpretative data was last revised on 13. Blood 06/13/2024 4:59 AM SAFETY SPECIALIST 06/13/2024 5:38 AM SAFETY SPECIALIST Ryan Jauregui MD LAB BLOOD ORDERABLES Final Resul t [facility] [place] [address] * (ABNORMAL) Comprehensive metabolic panel (06/13/2024 4:59 AM SAFETY SPECIALIST) Sodium 141 135 - 145 mmol/L Potassium, pl 3.9 3.3 - 4.9 mmol/L [facility] Chloride 106 97 - 110 mmol/L [facility] CO2 28 22 - 32 mmol/L [facility] Anion gap 7 2 - 15 mmol/L [facility] BUN 8 6 - 25 mg/dL [facility] Creatinine 0.54(L) 0.80 - 1.30 mg/dL [facility] Glucose 103 70 - 199 mg/dL [facility] Comment: Interpretive Data Fasting glucose >/= 126 [...] 2022. Calcium 9.5 8.5 - 10.3 mg/dL [facility] Bilirubin, total 0.5 0.1 - 1.2 mg/dL [facility] Protein, pl 7.1 6.5 - 8.5 g/dL [facility] Albumin 3.7 3.5 - 5.0 g/dL [facility] Alk phos 96 40 - 130 Units/L [facility] ALT 17 7 - 55 Units/L [facility] AST 22 10 - 50 Units/L [facility] Blood 06/13/2024 4:59 AM SAFETY SPECIALIST 06/13/2024 5:38 AM SAFETY SPECIALIST Ryan Jauregui MD LAB BLOOD ORDERABLES Final Resul t [facility] [place] [address] * TSH (06/12/2024 3:51 PM SAFETY SPECIALIST) Pathologist [facility] Thyroid Stimulating Hormone 2.58 0.30 - 4.20 mcIUnit/mL Blood 06/12/2024 3:51 PM SAFETY SPECIALIST 06/12/2024 5:05 PM SAFETY SPECIALIST Ryan Jauregui MD LAB BLOOD ORDERABLES Final Resul t Performing Organization Address [facility] Co de Phone Number [facility] [place] [address] * (ABNORMAL) Differential, auto (06/12/2024 3:30 PM SAFETY SPECIALIST) Pathologist [facility] Neutrophil abs 9.5(H) 1.5 - 6.5 K/cumm Imm gran abs 0.0 0.0 - 0.1 K/cumm [facility] Lymphocyte abs 2.3 0.8 - 3.3 K/cumm [facility] Monocyte abs 1.1(H) 0.2 - 0.8 K/cumm [facility] Eosinophil abs 0.2 0.0 - 0.5 K/cumm [facility] Basophil abs 0.0 0.0 - 0.1 K/cumm [facility] Neutrophil pct 72.4 % [facility] Comment: Interpretive Data Percent cell count reference ranges are not reported, since discordance with absolute values may lead to misinterpretation of CBC data. Current Interpretive Data was last revised on 2017. Imm gran pct 0.2 % [facility] Comment: Interpretive Data Percent cell count reference ranges are not reported, since discordance with absolute values may lead to misinterpretation of CBC data. Current Interpretive Data was last revised on 2017. Lymphocyte pct 17.4 % [facility] Comment: Interpretive Data Percent cell count reference ranges are not reported, since discordance with absolute values may lead to misinterpretation of CBC data. Current Interpretive Data was last revised on 2017. Monocyte pct 8.3 % [facility] Comment: Interpretive Data Percent cell count reference ranges are not reported, since discordance with absolute values may lead to misinterpretation of CBC data. Current Interpretive Data was last revised on 2017. Eosinophil pct 1.5 % [facility] Comment: Interpretive Data Percent cell count reference ranges are not reported, since discordance with absolute values may lead to misinterpretation of CBC data. Current Interpretive Data was last revised on 2017. Basophil pct 0.2 % [facility] Comment: Interpretive Data Percent cell count reference ranges are not reported, since discordance with absolute values may lead to misinterpretation of CBC data. Current Interpretive Data was last revised on 2017. Blood 06/12/2024 3:30 PM SAFETY SPECIALIST 06/12/2024 5:10 PM SAFETY SPECIALIST us Ryan Jauregui MD LAB BLOOD ORDERABLES Final Resul t [facility] [place] [address] * (ABNORMAL) CBC with auto differential (06/12/2024 3:30 PM SAFETY SPECIALIST) WBC 13.3(H) 3.8 - 9.9 K/cumm Hgb 13.7 13.0 - 17.5 g/dL [facility] Hct 41.5 38.9 - 50.3 % [facility] Plt 162 150 - 400 K/cumm [facility] MPV 13.6(H) 9.1 - 12.3 fL [facility] RBC 4.27(L) 4.30 - 5.80 M/cumm [facility] MCV 97.2(H) 81.3 - 96.4 fL [facility] MCH 32.1 27.1 - 33.3 pg [facility] MCHC 33.0 32.3 - 35.7 g/dL [facility] RDW CV 13.7 11.1 - 14.9 % [facility] RDW SD 48.8(H) 35.7 - 48.1 fL [facility] NRBC abs 0.00 0.00 - 0.01 K/cumm [facility] Blood 06/12/2024 3:30 PM SAFETY SPECIALIST 06/12/2024 5:10 PM SAFETY SPECIALIST Ryan Jauregui MD LAB BLOOD ORDERABLES Final Resul t Performing Organization Address [facility] de Phone Number [facility] [place] [address] * Hemoglobin A1c (06/12/2024 3:30 PM SAFETY SPECIALIST) [facility] Hgb A1C 4.9 4.0 - 5.6 % Estimated Average Glucose 94 mg/dL [facility] Comment: The ADA recommends reporting an estimated Average Glucose (eAG) with all Hemoglobin A1c results using the equation derived from a study of 507 normal and diabetic adults. Minority populations were underrepresented and children were not included. (Diabetes Care 2020; 43(S1): S66-S76). The eAG is not equivalent to a fasting glucose. Blood 06/12/2024 3:30 PM SAFETY SPECIALIST 06/12/2024 5:10 PM SAFETY SPECIALIST Ryan Jauregui MD LAB BLOOD ORDERABLES Final Resul t Performing Organization Address [facility] Co de Phone Number [facility] [place] [address] * Troponin I high-sensitivity 4-hour (06/12/2024 3:27 PM SAFETY SPECIALIST) Pathologist [facility] Trop I hs 10 <=35 ng/L Comment: Interpretive Data For further hscTnI resources including the diagnostic algorithm and an aid in interpretation, copy and paste this link: https://bjhlab.testcatalog.org/show/[email or web address] Current Interpretive Data last revised 2019. Trop I hs delta 1 ng/L [facility] Trop I hs interp Insignificant [facility] Blood 06/12/2024 3:27 PM SAFETY SPECIALIST 06/12/2024 5:06 PM SAFETY SPECIALIST us Shakila Jung MD LAB BLOOD ORDERABL ES Final Result [facility] [place] [address] * XR Chest 1 Vw Portable (06/12/2024 2:47 PM SAFETY SPECIALIST) Anatomical Region Laterality Modality Body, Chest N/A Computed Radiogr aphy 06/12/2024 2:51 PM SAFETY SPECIALIST Impressions 06/12/2024 2:51 PM SAFETY SPECIALIST Comparison to 10/07/2021. Tracheostomy device in place. Small lung volumes with bibasilar atelectasis. No pneumothorax or focal consolidation. Unchanged cardiomediastinal silhouette, accounting for differences volumes. Small left pleural effusion. No right pleural effusion. Electronically signed by: Raul Whitfield M.D. Narrative 06/12/2024 2:51 PM SAFETY SPECIALIST EXAMINATION: 1 view chest radiograph Procedure Note [...] Urine, in and out catheter (06/12/2024 2:38PM SAFETY SPECIALIST) Color, ur Straw Yellow Clarity, ur Clear Clear [facility] Specific gravity, ur >1.042(H) 1.003 - 1.030 [facility] pH, urine 8.5 [facility] Comment: Interpretive Data
--- OUTSIDE RECORDS SUMMARY | 2024-08-15 02:36 | XMS_ITS | Encounter Summary ---
Author Organization [facility] Address [address] [place] [address] Care Team Providers Care Farm Truck Driver Name Role Phone Frank Toure MD Unavailable Kayla Porras BATTERBOARD SETTER Primary Care Provider [phone] Misael Maradiaga DO Primary Care Provider [phone] Joyce Luevano BATTERBOARD SETTER Primary Care Provider Unavaila Marielena Adame MD Primary Care Provider [phone] Encounter Details Date Type Department Care Team (Latest Contact Info) Description 02/01/2018 Abstract [facility] [...] on filedocumented in this encounter Care Teams Farm Truck Driver Relationship Specialty Start Date End Date Kayla Porras NP [address] [place] [address] PCP - General 06/25/16 09/27/18 Misael Maradiaga DO [address] [place] [address] PCP - General FAMILY PRACTICE 09/28/18 01/13/20 Joyce [place] [address] [place] [address] PCP - General NURSE PRACTITIONER 01/14/20 10/26/23 Marielena Smallwood MD [address] [place] [id number] PCP - General FAMILY PRACTICE 10/27/23 Frank Toure MD [facility] [place] [address] [employer] S[employer] Business Development Officer CARDIOVASCULAR DISEASE 05/30/16 documented as of this encounter
--- OUTSIDE RECORDS SUMMARY | 2024-08-15 02:36 | XMS_ITS | Encounter Summary ---
Author Organization [facility] Address [address] [place] [address] Care Team Providers Care Police Matron Name Role Phone Frank Toure MD Unavailable Misael Maradiaga DO Primary Care Provider [phone] Joyce Luevano NP Primary Care Provider Unavaila Marielena Adame MD Primary Care Provider [phone] Encounter Details Date Type Department Care Team (Late st Contact Info) Description 12/14/2018 Hospital Follow-up Call [facility] [place] [address] Cony Adan RN Social History Tobacco Use [...] on filedocumented in this encounter Care Teams Police Matron Relationship Specialty Start Date End Date Misael Maradiaga DO [address] [place] [address] PCP - General FAMILY PRACTICE 09/28/18 01/13/20 Joyce Luevano NP [address] [place] [address] PCP - General NURSE PRACTITIONER 01/14/20 10/26/23 Marielena Smallwood MD [address] [place] [id number] PCP - General FAMILY PRACTICE 10/27/23 Frank Toure MD [address] [place] [id number] Chivo Bilingual Teacher Aide CARDIOVASCULAR DISEASE 05/30/16 documented as of this encounter
--- OUTSIDE RECORDS SUMMARY | 2024-08-15 02:36 | XMS_ITS | Data Portability ---
Demographics Address [address] [place] [address] Home Phone Mobile Phone Email Address Preferred Language en Marital Status Never Quaker Affiliation Unknown Race Black or Irma rican Ethnic Group Not or Lati no Author Organization [facility] Address [address] [place] [address] Assessment No assessment recorded. Plan of Treatment Reminders Order Date Submit Date Provider Last Modified By Organization Details Last Modified Time Details Appointments None recorded. Lab None recorded. Referral None recorded. Procedures None recorded. Surgeries None recorded. Imaging None recorded. Medication Orders ibuprofen 800 mg tablet 2015 016 [facility] [employer], [address] [place] [address], [id number], 6 18:35:08 Prozac 20 mg capsule 2014 015 [facility] [employer], [address] [place] [address], [id number], 5 16:10:15 tramadol 50 mg tablet 2014 015 [facility] [employer], [address] [place] [address], [id number], 5 12:13:56 Flomax 0.4 mg capsule 2014 015 [facility] [employer], [address] [place] [address], [id number], 5 16:10:16 Ambien 10 mg tablet 2014 015 [facility] 2 [place], [facility], [address] [place] [address], [id number], 5 10:37:28 Patient TargetsNo targets recorded. Patient Instructions Encounter Date Encounter Id Patient Instructions Last Modified By Organization Details Last Modified Time 06/10/2014 [id number] stroke: care instructions Not available 06/21/2014 17:33:19 insomnia: care instructions Not available 06/21/2014 17:33:19 epilepsy: care instructions Not available 06/21/2014 17:33:19 09/18/2014 [id number] epilepsy: care instructions [email or web address] Not available 09/18/2014 17:05:10 back care and preventing injuries: care instructions [email or web address] Not available 09/18/2014 17:05:10 04/16/2015 [id number] epilepsy: care instructions campadu Not available 04/16/2015 16:05:30 06/12/2015 [id number] stroke: care instructions [email or web address] Not available 06/13/2015 12:21:31 epilepsy: care instructions [email or web address] Not available 06/13/2015 12:21:31 learning about high blood pressure [email or web address] Not available 06/13/2015 12:21:31 Reason for Referral None Reported. Results Created Date Observation Date Name Description Value Unit Range Abnormal Flag Note LastModifiedBy Organization Detail LastModifiedTime 06/12/19 16 06/12/2015 CBC w/ auto diff WBC 5.9 K/uL 3.4-10 .8 Not Available [facility] (Lab) [address] [place], [address], 06/12/2015 19:52:35 06/12/19 16 06/12/2015 CBC w/ auto diff red blood count 4.6 M/uL 4.5-6. 3 Not Available [facility] (Lab) [address], [place], [address], 06/12/2015 19:52:35 06/12/19 16 06/12/2015 CBC w/ auto diff hemoglobin 14.7 g/dL 13.5-1 7.5 Not Available [facility] (Lab) [address] [place], [address], 06/12/2015 19:52:35 06/12/19 16 06/12/2015 CBC w/ auto diff hematocrit 44.5 % 40.0-5 2.0 Not Available [facility] (Lab) [address] [place], [address], 06/12/2015 19:52:35 06/12/19 16 06/12/2015 CBC w/ auto diff MCV 97 fL 80-95 high Not Available [facility] (Lab) [address] [place], [address], 06/12/2015 19:52:35 06/12/19 16 06/12/2015 CBC w/ auto diff MCH 32 pg 27-32 Not Available [facility] (Lab) [address] [place], [address], 06/12/2015 19:52:35 06/12/19 16 06/12/2015 CBC w/ auto diff MCHC 33 g/dL 32-36 Not Available [facility] (Lab) [address] [place], [address], 06/12/2015 19:52:35 06/12/19 16 06/12/2015 CBC w/ auto diff platelets 219 K/uL 155-37 9 Not Available [facility] (Lab) [address] [place], [address], 06/12/2015 19:52:35 06/12/19 16 06/12/2015 CBC w/ auto diff RDW 11.6 % 11.5-1 4.5 Not Available [facility] (Lab) [address] [place], [address], 06/12/2015 19:52:35 06/12/19 16 06/12/2015 CBC w/ auto diff MPV 11.1 fL 8.9-12 .7 Not Available [facility] (Lab) [address] [place], [address], 06/12/2015 19:52:35 06/12/19 16 06/12/2015 CBC w/ auto diff neutrophils absolute 2.5 K/uL 1.4-7. 0 Not Available [facility] (Lab) [address] [facility], [place], [address], 06/12/2015 19:52:35 06/12/19 16 06/12/2015 CBC w/ auto diff lymphs (absolute) 2.6 K/uL 0.7-3. 1 Not Available [facility] (Lab) [address] [facility], [place], [address], 06/12/2015 19:52:35 06/12/19 16 06/12/2015 CBC w/ auto diff monocytes (absolute) 0.5 K/uL 0.1-0. 9 Not Available [facility] (Lab) [address] [place], [address], 06/12/2015 19:52:35 06/12/19 16 06/12/2015 CBC w/ auto diff eos (absolute) 0.2 K/uL 0.0-0. 4 Not Available [facility] (Lab) [address] [place], [address], 06/12/2015 19:52:35 06/12/19 16 06/12/2015 CBC w/ auto diff baso (absolute) 0.0 K/uL 0.1-0. 3 low Not Available [facility] (Lab) [address] [facility], [place], [address], 06/12/2015 19:52:35 06/12/19 16 06/12/2015 CBC w/ auto diff neut % 43.1 % 40.0-7 4.0 Not Available [facility] (Lab) [address] [place], [address], 06/12/2015 19:52:35 06/12/19 16 06/12/2015 CBC w/ auto diff lymphs % 44.6 % 14.0-4 6.0 Not Available [facility] (Lab) [address] [place], [address], 06/12/2015 19:52:35 06/12/19 16 06/12/2015 CBC w/ auto diff mono % 8.7 % 4.0-12 .0 Not Available [facility] (Lab) [address], [place], [address], 06/12/2015 19:52:35 06/12/19 16 06/12/2015 CBC w/ auto diff eos % 3 % <=5 Not Available [facility] (Lab) [address], [place], [address], 06/12/2015 19:52:35 06/12/19 16 06/12/2015 CBC w/ auto diff baso % 0.2 % 0.1-1. 1 Not Available [facility] ([facility]) [address] [facility], [place], [address], 06/12/2015 19:52:35 06/12/19 16 06/13/2015 HbA1c (hemo globi n A1c), blood hemoglobin A1C 5.4 % 4.8-5. 6 . Pre-d iabet es: 5.7 - 6.4 Diabe ivet: >6.4 Glyce [place] contr ol for adult s with diabe ivet: <7.0 Not Available [facility] (Lab) [address], [place], [address], 06/13/2015 04:12:44 06/12/19 16 06/13/2015 T4, total , serum thyroxine T4 4.7 ug/dL 4.5-12 .0 Not Available [facility]) [address] [place], [address], 06/13/2015 05:19:09 06/12/19 16 06/13/2015 CMP, serum or plasm a glucose, serum 98 mg/dL 65-99 Not Available [facility] [address], [place], [address], 06/13/2015 05:19:11 06/12/19 16 06/13/2015 CMP, serum or plasm a BUN 7 mg/dL 6-24 Not Available [facility] (Lab) [address], [place], [address], 06/13/2015 05:19:11 06/12/19 16 06/13/2015 CMP, serum or plasm a creatinine, serum 0.78 mg/dL 0.76-1 .27 Not Available [facility] (Lab) [address], [place], [address], 06/13/2015 05:19:11 06/12/19 16 06/13/2015 CMP, serum or plasm a eGFR if nonafricn AM 102 mL/mi n/1.7 3 >59 Not Available [facility] (Lab) [address], [place], [address], 06/13/2015 05:19:11 06/12/19 16 06/13/2015 CMP, serum or plasm a eGFR if 118 mL/mi n/1.7 3 >59 Not Available [facility] (Lab) [address], [place], [address], 06/13/2015 05:19:11 06/12/19 16 06/13/2015 CMP, serum or plasm a BUN/creatini ne ratio 9 9-20 Not Available [facility] (Lab) [address], [place], [address], 06/13/2015 05:19:11 06/12/19 16 06/13/2015 CMP, serum or plasm a sodium, serum 141 mmol/ L 134-14 4 Not Available [facility] (Lab) [address] [place], [address], 06/13/2015 05:19:11 06/12/19 16 06/13/2015 CMP, serum or plasm a potassium, serum 4.5 mmol/ L 3.5-5. 2 Not Available [facility] (Lab) [address], [place], [address], 06/13/2015 05:19:11 06/12/19 16 06/13/2015 CMP, serum or plasm a chloride, serum 101 mmol/ L 97-108 Not Available [facility] (Lab) [address] [place], [address], 06/13/2015 05:19:11 06/12/19 16 06/13/2015 CMP, serum or plasm a carbon dioxide, total 23 mmol/ L 18-29 Not Available [facility] (Lab) [address], [place], [address], 06/13/2015 05:19:11 06/12/19 16 06/13/2015 CMP, serum or plasm a calcium, serum 9.5 mg/dL 8.7-10 .2 Not Available [facility] (Lab) [address], [place], [address], 06/13/2015 05:19:11 06/12/1906/13/2015 CMP, serum or plasm a protein total serum 7.2 g/dL 6.0-8. 5 Not Available [facility] (Lab) [address], [place], [address], 06/13/2015 05:19:11 06/12/1906/13/2015 CMP, serum or plasm a albumin, serum 4.5 g/dL 3.5-5. 5 Not Available [facility] (Lab) [address], [place], [address], 06/13/2015 05:19:11 06/12/19 16 06/13/2015 CMP, serum or plasm a globulin total 2.7 g/dL 1.5-4. 5 Not Available [facility] (Lab) [address], [place], [address], 06/13/2015 05:19:11 06/12/1906/13/2015 CMP, serum or plasm a A/G ratio 1.7 1.1-2. 5 Not Available [facility] (Lab) [address], [place], [address], 06/13/2015 05:19:11 06/12/1906/13/2015 CMP, serum or plasm a bilirubin total <0.2 mg/dL 0.0-1. 2 Not Available [facility] (Lab) [address] [place], [address], 06/13/2015 05:19:11 06/12/19 16 06/13/2015 CMP, serum or plasm a alkaline phosphatase ser 105 IU/L 39-117 Not Available [facility] (Lab) [address], [place], [address], 06/13/2015 05:19:11 06/12/19 16 06/13/2015 CMP, serum or plasm a AST (SGOT) 20 IU/L 0-40 Not Available [facility] ([facility]) [address] [place], [address], 06/13/2015 05:19:11 06/12/19 16 06/13/2015 CMP, serum or plasm a ALT (SGPT) 18 IU/L 0-44 Not Available [facility] ([facility]) [address] [place], [address], 06/13/2015 05:19:11 06/12/19 16 06/13/2015 TSH, serum or plasm a TSH 2.010 uIU/m L 0.450- 4.500 Not Available [facility] (Lab) [address] [place], [address], 06/13/2015 05:19:12 06/12/19 16 06/13/2015 PSA, serum [...] t be inter prete d as absol [place] evide nce of the prese nce or absen ce of truong mena . Not Available [facility] (Lab) [address] [place], [address], 06/13/2015 05:19:13 06/12/19 16 06/13/2015 lipid panel w/ direc t LDL, serum cholesterol, total 215 mg/dL 100-19 9 high Not Available [facility] (Lab) [address] [place], [address], 06/13/2015 05:19:14 06/12/19 16 06/13/2015 lipid panel w/ direc t LDL, serum triglyceride s 73 mg/dL 0-149 Not Available [facility] (Lab) [address] [place], [address], 06/13/2015 05:19:14 06/12/19 16 06/13/2015 lipid panel w/ direc t LDL, serum HDL cholesterol 85 mg/dL >39 Accor ding to ATP-I II Guide lines , HDL-C >59 mg/dL is consi dered a negat phan risk facto r for CHD. Not Available [facility] (Lab) [address] [place], [address], 06/13/2015 05:19:14 06/12/19 16 06/13/2015 lipid panel w/ direc t LDL, serum VLDL cholesterol margarita 15 mg/dL 5-40 Not Available [facility] ([facility]) [address] [place], [address], 06/13/2015 05:19:14 06/12/19 16 06/13/2015 lipid panel w/ direc t LDL, serum LDL cholesterol calc 115 mg/dL 0-99 high Not Available [facility] ([facility]) [address] [place], [address], 06/13/2015 05:19:14 06/12/19 16 06/13/2015 lipid panel w/ direc t LDL, serum lipid calculation Not Available [facility] ([facility]) [address] [place], [address], 06/13/2015 05:19:14 09/22/19 15 09/21/2014 imagi ng/di agnos tic resul t No observ ation record ed. [address] , [place], [address], 09/30/2014 11:19:53 09/26/19 15 imagi ng/di agnos tic resul t No observ ation record ed. [email or web address] Not Available 2014 11:08:28 10/01/19 15 09/27/2014 imagi ng/di agnos tic resul t No observ ation record ed. [address] [place], [address], 10/03/2014 11:08:29 11/09/19 15 11/08/2014 imagi ng/di agnos tic resul t No observ ation record ed. [email or web address] Not Available 2014 15:10:11 12/02/19 15 12/01/2014 imagi ng/di agnos tic resul t No observ ation record ed. [email or web address] Not Available 2014 10:38:41 01/03/20 15 12/31/2014 imagi ng/di agnos tic resul t No observ ation record ed. [facility] (Rad) [address] [place], [address], 01/02/2015 09:50:17 01/07/20 15 01/05/2015 imagi ng/di agnos tic resul t No observ ation record ed. [email or web address] [facility], [place], [address], 01/06/2015 09:32:38 03/10/20 15 03/10/2015 imagi ng/di agnos tic resul t No observ ation record ed. [email or web address] [facility] (Rad) [address] [place], [address], 03/10/2015 12:50:58 03/11/20 15 03/11/2015 CV EKG 12 lead MOJGAN TABOR MD: KIRILL ANN MD 6905 ACCT: [id number] ADMIT/ SERVIC E DATE: DISCHA RGE DATE: : 1959 PT TYPE: ADM IN SEX: M ORD SITE: [address] TEST DATE: 2014-05 PAT NAME: MOJGAN TABOR DEPART MENT: CARD 40 PATIEN T ID: [id number] ROOM: [facility] GENDER : MALE TECHNI MARIA ISABEL: CDN : 01-[address] BY: CADE ANN ORDER NUMBER : [id number] [id number] CJ Lu MD: FELIPE SELF MEASUR EMENTS INTERV ALS AXIS RATE: 145 P: 81 WI: 118 QRS: 19 QRSD: 82 T: 70 QT: 282 QTC: 438 INTERP RETIVE STATEM ENTS SINUS TACHYC ARDIA WITH SHORT WI INTERV AL WITH OCCASI ONAL VENTRI CULAR PREMAT URE COMPLE XES WITH OCCASI ONAL SUPRAV ENTRIC ULAR AMBER SEPTAL MYOCAR DIAL INFARC TION, PROBAB LY OLD NONSPE CIFIC ST SEGMEN T ABNORM ALITIE S, CANNOT RULE OUT ISCHEM IA ELECTR ONICAL LY SIGNED BY FELIPE SELF AT 17:03: 07 CDT [facility], [place], [address], 05/07/2015 04:08:47 03/11/20 15 03/11/2015 xr chest 1 view alejandraMOJGAN Hester 6905 ADMIT/ SERVIC E DATE: ACCT: [id number] DISCHA RGE DATE: : 1959 SEX: M ORD SITE: [facility] PT TYPE: ADM IN JING MUHAMMAD MD: KIRILL ANN MD STUDY DATE REPORT # ORDER # EXT ORDER ID [id number] 1.002 PROC CODE: [id number] ORT PROCED URE DESCRI PTION: XR CHEST 1 VIEW PORTAB LE I MPRESS ION: NO ACUTE INFILT RATE. EXAMIN ATION: PORTAB LE CHEST X-RAY 1 VIEW ACCESS ION: [id number] EXAM DATE/T TRAVON: 2014 8:36 PM CLINIC [...] SIGNED BY: MARYBEL CROUCH ER10/07/2014 8:54 PM [facility], [place], [address], 05/07/2015 04:08:47 03/12/20 15 03/12/2015 MRI brain wo MOJGAN TABOR 6905 ADMIT/ SERVIC E DATE: ACCT: [id number] DISCHA RGE DATE: : 1959 SEX: M ORD SITE: [facility] PT TYPE: ADM IN BRANDONI SABINA MD: KIRILL ANN MD STUDY DATE REPORT # ORDER # EXT ORDER ID [id number] 1.001 PROC CODE: BRNWOC PROCED URE DESCRI [...] BRAIN WITHOU T CONTRA ST. ACCESS ION: [id number] EXAM DATE/T TRAVON: 2014 11:23 AM CLINIC [...] SIGNED BY: CADE GRAY 11:51 AM build [facility], [place], [address], 05/07/2015 04:08:47 06/19/19 16 06/19/2015 imagi ng/di agnos tic resul t No observ ation record ed. [facility] Not Available 2015 09:33:44 06/19/19 16 06/19/2015 imagi ng/di agnos tic resul t No observ ation record ed. [facility] (Lab) [address] [place] [address] , [place], [address], 06/19/2015 09:33:44 06/19/19 16 06/19/2015 imagi ng/di agnos tic resul t No observ ation record ed. [facility] (Lab) [address] [place] [address] [place], [address], 06/20/2015 09:57:26 06/20/19 16 06/19/2015 imagi ng/di agnos tic resul t No observ ation record ed. [address] [place], [address], 06/20/2015 10:01:56 05/09/20 19 05/09/2019 , les aldana id arter y No observ ation record ed. [address] [place], [address], 05/09/2019 17:59:20 Result Notes None recorded. Problems Name Problem SNOMED Code Status Onset Date Resolution Date Notes Provider Name and Address Organization Details Recorded Time Low back pain 835161256 Active Burke Ann MD Attn: Zulemalivia lu,[address] [facility], [place], [address], [place] [facility] 5 16:09:38 Essential hypertension 27207807 Active Burke Ann MD Attn: Austin tabitha,[address] [facility], [place], [address], [place] [facility] 6 18:34:53 Anxiety 20898879 Active Burke Ann MD Attn: Asutin lu,[address] [facility], [place], [address], [place] [facility] 5 15:03:30 Laceration - injury 499521093 Active Burke Ann MD Attn: Zulemalivia lu,[address] [facility], [place], [address], [place] [facility] 5 15:31:20 Seizure disorder 388646585 Active Burke Ann MD Attn: Austin tabitha,[address] [facility], [place], [address], [place] [facility] 6 18:34:53 Cerebrovascula r accident 570313966 Active Burke Ann MD Attn: [place] tabitha,[address] [facility], [place], [address], [place] [facility] 6 18:34:53 Insomnia 995944908 Active Burke Ann MD Attn: Austin lu,[address] [facility], [place], [address], [place] [facility] 5 15:31:20 Problem Notes None recorded. Procedures Surgical History None recorded. Imaging Results Imaging Date Name Status LastModified by Organiz ation Details LastModified Time 09/21/2014 imaging/diagn ostic result completed [address] [place], [address], 09/30/2014 11:19:53 09/25/2014 imaging/diagn ostic result completed Information not available 10/03/2014 11:08:28 09/27/2014 imaging/diagn ostic result completed [address] [place], [address], 10/03/2014 11:08:29 11/08/2014 imaging/diagn ostic result completed Information not available 11/11/2014 15:10:11 12/01/2014 imaging/diagn ostic result completed [email or web address] Information not available 12/02/2014 10:38:41 12/31/2014 imaging/diagn ostic result completed [email or web address] [facility] ([facility]) [address] [place], [address], 01/02/2015 09:50:17 01/05/2015 imaging/diagn ostic result completed [email or web address] [place], [address], 01/06/2015 09:32:38 03/10/2015 imaging/diagn ostic result completed [email or web address] [facility] ([facility]) [address] [place], [address], 03/10/2015 12:50:58 03/11/2015 CV EKG 12 [place], [address], 05/07/2015 04:08:47 03/11/2015 xr chest 1 [place], [address], 05/07/2015 04:08:47 03/12/2015 [place], [address], 05/07/2015 04:08:47 06/19/2015 imaging/diagn ostic result [facility] Information not available 06/19/2015 09:33:44 06/19/2015 imaging/diagn ostic result completed [facility] (Lab) [address] [place] [address] [place], [address], 06/19/2015 09:33:44 06/19/2015 imaging/diagn ostic result completed [facility] (Lab) [address] [place] [address] [place], [address], 06/20/2015 09:57:26 06/19/2015 imaging/diagn ostic result completed [address] [place], [address], 06/20/2015 10:01:56 05/09/2019 US, duplex, carotid artery completed [address] [place], [address], 05/09/2019 17:59:20 Procedure Notes None recorded. Medical [...] Details Last Updated DateTime 5 22 /min 40575.9 08636 g 98.7 [degF] 170.18 cm 21.4 kg/m2 80 /min 148 mm[Hg] 94 mm[Hg] Leonor Arauz MA [facility] 5 15:57:48 Date Recorded Body height Body mass index (BMI) Body weight Heart rate Respiratory rate Body temperature Systolic blood pressure Diastolic blood pressure Provider Name and Address Organization Details Last Updated DateTime 5 170.18 cm 21.5 kg/m2 44046.1 5469 g 88 /min 20 /min 98.2 [degF] 132 mm[Hg] 80 mm[Hg] Fior Pereyra MA [facility] 5 12:08:47 Date Recorded Body temperature Body height Body mass index (BMI) Heart rate Respiratory rate Body weight Systolic blood pressure Diastolic blood pressure Provider Name and Address Organization Details Last Updated DateTime 5 97.9 [degF] 175.26 cm 20.2 kg/m2 78 /min 18 /min 51304.1 5469 g 142 mm[Hg] 90 mm[Hg] Jeannasunitha Luan [facility] 5 13:46:55 Date Recorded Heart rate Body height Respiratory rate Body mass index (BMI) Body weight Body temperature Systolic blood pressure Diastolic blood pressure Provider Name and Address Organization Details Last Updated DateTime 6 92 /min 170.18 cm 20 /min 21.5 kg/m2 44600.1 5469 g 98 [degF] 102 mm[Hg] 78 mm[Hg] Leonor Arauz MA [facility] 6 16:31:07 Social History None recorded. Functional Status None recorded. Mental Status None recorded. Family History Relationship Description Onset Age of this Age Resolved Age Notes LastModified by Organization Details LastModified Time Mother Heart disease 59 [email or web address] Not available 2015 16:32:53 Medical History Condition Response Coronary Artery Disease N Other N Atrial Fibrillation N High Blood Pressure Y Depression N COPD N Blood Clots N Anxiety Disorder Y Muscle, Joint, or Bone Problems N Acid Reflux (GERD) N Cancer N Stroke Y High Cholesterol N Liver Disease N Headaches Y Kidney or Bladder Problems N Thyroid Problems N GI Problems N Skin Problems N Anemia N Heart Attack ([place]) N Diabetes N Seizures/Epilepsy Y Asthma N Allergies N Hepatitis N Osteoporosis N Heart Failure N Past Encounters Encounter ID Performer Location Encounter Start Date Encounter Closed Date Diagnosis/Indication Diagnosis SNOMED-CT Code Diagnosis ICD10 Code Diagnosis Note [id number] Jeannie Sherman RN [facility] (Adult/Fa m Med) [address] [place] [phone] 06/10/2014 13:26:21 06/10/2014 18:13:06 Laceration - injury 345235507 Seizure disorder 209908382 Cerebrovas cular accident 456215927 Insomnia 771636861 [id number] Nata Albert LPN [facility] (Adult/Fa m Med) [address] [place] [phone] 09/18/2014 14:45:50 09/18/2014 18:01:22 Seizure disorder 452170209 Anxiety 78557365 Low back pain 210924626 [id number] Crystal Toy [facility] (Adult/Fa m Med) [address] [place] [phone] 04/16/2015 11:24:38 04/16/2015 17:33:17 Essential hypertension 83754660 I10 Anxiety 20520801 F41.9 Seizure disorder 6741326 02 G40.909 [id number] Dotty Peace [facility] (Adult/Fa m Med) [address] [place] [phone] 06/12/2015 15:25:04 06/27/2015 12:04:51 Essential hypertension 19157366 I10 Seizure disorder 6753774 02 G40.909 Cerebrovas cular accident 934668030 I63.9 Health Concerns Section Related Observation LastModified by Organization Detai ls LastModified Time None Recorded Concern Status LastModified by Organization Details LastModified Time None Recorded Advance Directives Directive None Recorded Payers Encounter Date Sequence Insurance Name Policy Number Policy [place] Covered Member ID [place] Member ID Guarantor Name 06/10/2014 1 [facility] PRIOR TO 11/27/2020 (MEDICAID REPLACEMENT - HMO) Mojgan Tabor [id number] Mojgan Tabor 09/18/2014 1 [facility] PRIOR TO 11/27/2020 (MEDICAID REPLACEMENT - HMO) Mojgan Tabor [id number] Mojgan Tabor 04/16/2015 1 [facility] PRIOR TO 11/27/2020 (MEDICAID REPLACEMENT - HMO) Mojgan Tabor [id number] Mojgan Tabor 06/12/2015 1 [facility] PRIOR TO 11/27/2020 (MEDICAID REPLACEMENT - HMO) Mojgan Tabor [id number] Mojgan Tabor Notes Date Note Type Note Provider Name and Address Organization Details Recorded Time 04/16/2015 text/html FOLLOW up care since stroke Burke Ann MD Attn: [employer],[address] [place], [address], [place] [facility] 04/16/2015 15:03:31
--- OUTSIDE RECORDS SUMMARY | 2024-08-15 02:37 | XMS_ITS | Encounter Summary ---
Author Organization [facility] - [facility] Address [address] [place] [address] Care Team Providers Care Industrial Nurse Name Role Phone Frank Toure MD Unavailable Joyce Luevano NP Primary Care Provider Unavaila Marielena Adame MD Primary Care Provider Encounter Details Date Type Department Care Team (Late st Contact Info) Description 03/09/2022 [employer] Message Enc [facility] Family Medicine - [address] [address] Joyce Luevano, GRAIN MILL PRODUCTS INSPECTOR Update on Bi Tabor Social History Tobacco [...] filedocumented in this encounter Care Teams Industrial Nurse Relationship Specialty Start Date End Date Joyce Luevano NP [address] [place] [address] PCP - General NURSE PRACTITIONER 01/14/20 10/26/23 Marielena Smallwood MD [address] [place] [id number] PCP - General FAMILY PRACTICE 10/27/23 Frank Toure MD [address] [place] [address] Chivo Strip Presser CARDIOVASCULAR DISEASE 05/30/16 documented as of this encounter
--- OUTSIDE RECORDS SUMMARY | 2024-08-15 02:37 | XMS_ITS | Encounter Summary ---
Author Organization [facility] - [facility] Address [address] [place] [address] Care Team Providers Care Analytics Lead Name Role Phone Frank Toure MD Unavailable Joyce Luevano NP Primary Care Provider Unavaila Marielena Adame MD Primary Care Provider [phone] Encounter Details Date Type Department Care Team (Late st Contact Info) Description 07/06/2022 MyCInstantist Message Enc [facility] Medical [facility] Family Medicine - [address] [address] Joyce Luevano, AUTOMOTIVE SALES REPRESENTATIVE Bi Tabor Social History Tobacco Use Types [...] Coronavirus/COVID-19? No / Unsure 06/17/2022 10:38 AM SPONGE CLIPPER documented as of this encounter Functional Status [...] 1:34 PM CST Please see note. Thanks GE CLIPPER * Yonatan Rodriguez RN - 07/07/2022 8:09 AM CST Please see note. Thanks GE CLIPPER documented in this encounter Plan of Treatment Not on file documented as of this encounter Visit Diagnoses Not on filedocumented in this encounter Care Teams Analytics Lead Relationship Specialty Start Date End Date Joyce Luevano NP [address] [place] [address] PCP - General NURSE PRACTITIONER 01/14/20 10/26/23 Marielena Smallwood MD [address] [place] [id number] PCP - General FAMILY PRACTICE 10/27/23 [place] [address] [place] [address] Chivo Suspect Artist CARDIOVASCULAR DISEASE 05/30/16 documented as of this encounter
--- OUTSIDE RECORDS SUMMARY | 2024-08-15 02:37 | XMS_ITS | Encounter Summary ---
Author Organization [facility] - [facility] Address [address] [place] [address] Care Team Providers Care Machine Worker Name Role Phone Frank Toure MD Unavailable Joyce Luevano NP Primary Care Provider Unavaila Marielena Adame MD Primary Care Provider [phone] Encounter Details Date Type Department Care Team (Late st Contact Info) Description 02/23/2022 MyChart Message Enc [facility] Family Medicine - [address] [address] Joyce Luevano, BOUCHRA Bi updated [...] Author Status Yes 12/04/2018 2:03 PM CDT Aanhi Jernigan RN Active * Do you have [...] 10:33 AM CDT These updated through the [employer] system. documented in this encounter Plan of Treatment Not on file documented as of this encounter Visit Diagnoses Not on filedocumented in this encounter Care Teams Machine Worker Relationship Specialty Start Date End Date Joyce Luevano NP [address] [place] [address] PCP - General NURSE PRACTITIONER 01/14/20 10/26/23 Marielena Smallwood MD [address] [place] [id number] PCP - General FAMILY PRACTICE 10/27/23 Frank Toure MD [address] [place] [address] Chivo Washcoat Wiper CARDIOVASCULAR DISEASE 05/30/16 documented as of this encounter
--- OUTSIDE RECORDS SUMMARY | 2024-08-15 02:37 | XMS_ITS | Encounter Summary ---
Author Organization [facility] - [facility] Address [address] [place] [address] Care Team Providers Care Grain Manager Name Role Phone Frank Toure MD Unavailable Joyce Luevano NP Primary Care Provider Unavaila Marielena Adame MD Primary Care Provider [phone] Encounter Details Date Type Department Care Team (Late st Contact Info) Description 02/23/2022 MyCGameFlyt Message Enc [facility] Medical [facility] Family Medicine - [address] [address] Joyce Luevano, SYSTEMS ADMINISTRATION ANALYST Bi Tabor toenail Social History Tobacco Use [...] on filedocumented in this encounter Care Teams Grain Manager Relationship Specialty Start Date End Date Joyce Luevano NP [address] [place] [address] PCP - General NURSE PRACTITIONER 01/14/20 10/26/23 Marielena Smallwood MD [facility] [place] [address] PCP - General FAMILY PRACTICE 10/27/23 Frank Toure MD [address] [place] [address] Chivo Check Grader CARDIOVASCULAR DISEASE 05/30/16 documented as of this encounter
--- OUTSIDE RECORDS SUMMARY | 2024-08-15 02:37 | XMS_ITS | Referral Summary ---
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 Name Role Phone Marielena Smallwood MD Primary Care Provider Encounters Date Type Department Care Team Description 07/09/2024 7:23 PM OFFICE ASSISTANCE - 07/09/2024 11:59 PM OFFICE ASSISTANCE Hospital Encounter AMBULANCE BILLING [address] [place] [address] Discharge Disposition: Discharge to home or self care 07/08/2024 7:52 PM OFFICE ASSISTANCE - 07/09/2024 7:48 AM OFFICE ASSISTANCE Emergency [facility] Emergency Department [address] [place] [phone] Tri Martinez MD Thomas, Cherie Edwards MD Tracheostomy complication, unspecified complication type (HCC) (Primary Dx); Balanitis Discharge Disposition: Discharge to home or self care 06/12/2024 10:26 AM OFFICE ASSISTANCE - 06/28/2024 5:25 PM OFFICE ASSISTANCE Hospital Encounter [address] [phone] Shakila Jung MD Choi, Cheuk Ho Jeffrey, [...] 06/28/19 Active cloBAZam (ONFI) 2.5 mg/mL suspensionIndicati ons:[place]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 Monitor with q4 accuchecks and SSI. Hypophosphatemia 06/27/2024 Assessment & Plan (06/28/2024 11:44 AM OFFICE ASSISTANCE): <0.7 ? 2/2 refeeding syndrome. Started on neutraphos 2pkg QID 06/26. Still Phos<0.7 06/27. Tx with IV NaPhos 30mmoles and cont per tube replacement and monitor closely. -06/28: Phos=3.3, reduce nuetraphos to 1 PKG BID and monitor History of DVT (deep vein thrombosis) 06/26/2024 Assessment & Plan (06/26/2024 1:32 PM OFFICE ASSISTANCE): -On anticoagulation with Eliquis 5 mg po BID for hx of DVT -per chart review hx of Left Subclavian vein DVT diagnosed 08/01/23 H/O: GI bleed 06/25/2024 Assessment & Plan (06/26/2024 1:32 PM OFFICE ASSISTANCE): - [facility] ( 06-07-24 [...] 06/25/2024 Assessment & Plan (06/26/2024 1:36 PM OFFICE ASSISTANCE): Tracheostomy dependence, has a Shiley #4 cuffed. Pt followed at [facility], per notes trach in place for pulmonary toilet due to his copious secretions and ongoing aspiration of his secretions. -needing frequent suctioning -sats stable on 28% FIO2 by HHTC -Was getting VEST at [facility] Low grade fever 06/20/2024 Assessment & Plan (06/26/2024 1:34 PM OFFICE ASSISTANCE): Low-grade fever and tachycardia, softer BP after [...] 06/17/2024 Assessment & Plan (06/28/2024 11:43 AM OFFICE ASSISTANCE): -patient at admission with a G tube, was getting continous tube feedings at [facility] and not tolerating, -was [...] 12/14/22 (additional documented GJ tube procedures at [facility] most recent 09/09/23). 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 Phos repleted. Copious oral secretions 06/13/2024 Assessment & Plan (06/26/2024 1:29 PM OFFICE ASSISTANCE): Patient on chronic glycopyrrolate due to secretions, held at admission 07/01 to potential for constipation with plan to add back when he's had a bowel movements -resume on 06-19- hold on 06-20 due to somnolence. Suction PRN - restart glycopyrrolate 1mg BID 06/26 and monitor Abdominal pain 06/12/2024 Assessment & Plan (06/26/2024 1:23 PM OFFICE ASSISTANCE): -p/w abdominal distention from SNF to ED on 06-12 ,reported biliary emesis per longterm (approximately 300 cc) , not associated fevers or change in bowel habits. Feeding tube placed to gravity drainage in ED H&P notes regular bowel movements. CT scan on 06-12 in ED with stool in the rectum and sigmoid. Balaton likely constipation contributing to the patient's abdominal [...] 06/12/2024 Assessment & Plan (06/26/2024 12:08 AM OFFICE ASSISTANCE): Complicated by left LE AKA. History of CVA (cerebrovascular accident) 2020 Assessment & Plan (06/26/2024 1:32 PM OFFICE ASSISTANCE): - hx of RT parietal CVA- hx of dementia Cont asa and statin Essential hypertension 12/11/2020 Assessment & Plan (06/26/2024 1:30 PM OFFICE ASSISTANCE): - on metoprolol and norvasc, held with soft BP 06-19 - resume metoprolol 06-21 -resume amlodipine 06-22 - Monitor Hyperlipidemia 12/11/2020 Assessment & Plan (06/12/2024 3:47 PM OFFICE ASSISTANCE): - Continue home statin Seizure 12/10/2020 Assessment & Plan (06/26/2024 1:36 PM OFFICE ASSISTANCE): History of seizure disorder secondary to traumatic brain injury. Currently on valproate, Vimpat, Keppra and Cobazam - Continue home medication, valproate level low at admit 48 on 06-12, 48 on 06-13, Valproic acid level 76 06-19 prior to dose, lacosamide level 1.4 on 06/12, 9.6 on 06-19 Followed by Neurology at [facility] Cognitive communication deficit 08/25/2020 Cerebrovascular [...] Smokeless Tobacco: Current Tobacco Cessation:Counseling Given: Yes [facility] Utilities Answer Date Recorded In the past 12 months has [employer] electric, gas, oil, or water company threatened [...] often do you attend chur ch or pentecostal services? Never 06/18/2024 Do you belong to any clubs o r organizations such as scientology groups, unions, fraternal or athletic groups, or [...] any time in the past 12 m [facility], were you homeless or living in a usp (including now)? No 06/18/2024 Personal Safety Answer Date Recorded Have you ever been in or are you currently in a harmful physical or emotional relationship or is someone making you feel afraid or unsafe? Denies 07/08/2024 Sex and Gender Information Value Date Recorded Sex Assigned at Not on file Legal Sex Male 6:11 AM OFFICE ASSISTANCE Gender Identity Not on file Sexual Orientation Not on file Last Filed Vital Signs Vital Sign Reading Time Taken Comments Blood Pressure 145/83 07/09/2024 6:00 AM OFFICE ASSISTANCE Pulse 91 07/09/2024 6:00 AM OFFICE ASSISTANCE Temperature 36.5 C (97.7 F) 07/09/2024 6:31 AM OFFICE ASSISTANCE Respiratory Rate 10 07/09/2024 6:00 AM OFFICE ASSISTANCE Oxygen Saturation 100% 07/09/2024 6:00 AM OFFICE ASSISTANCE Inhaled Oxygen Concentration - - Weight 79.8 kg (176 lb) 07/09/2024 2:16 AM OFFICE ASSISTANCE Height 182.9 cm (6') 07/09/2024 2:16 AM OFFICE ASSISTANCE Body Mass Index 23.87 07/09/2024 2:16 AM OFFICE ASSISTANCE Plan of Treatment Not on file Procedures Procedure Name Priority Date/Time Associated Diagnosis Comments POCT RAPID HIV ANTIBODY COMMUNITY SCREENING-ISSA ELIGIBLE STAT 07/09/2024 5:32 AM OFFICE ASSISTANCE SEPSIS LACTATE WITH REFLEX Timed 07/09/2024 4:33 AM OFFICE ASSISTANCE ED PERIPHERAL LINE INSERTION Routine 07/09/2024 1:18 AM OFFICE ASSISTANCE SEPSIS LACTATE WITH REFLEX Timed 07/09/2024 1:15 AM OFFICE ASSISTANCE RPR STAT 07/09/2024 1:15 AM OFFICE ASSISTANCE N. GONORRHOEAE/C. TRACHOMATIS AMPLIFICATION STAT 07/09/2024 1:02 AM OFFICE ASSISTANCE URINALYSIS AND REFLEX TO MICROSCOPIC AND CULTURE STAT 07/09/2024 1:02 AM OFFICE ASSISTANCE ED PERIPHERAL LINE INSERTION Routine 07/08/2024 10:[address] CHEST ABDOMEN PELVIS W CONTRAST ED 07/08/2024 9:55 PM OFFICE ASSISTANCE EGFR STAT 07/08/2024 8:56 PM OFFICE ASSISTANCE DIFFERENTIAL AUTO STAT 07/08/2024 8:5 6 PM OFFICE ASSISTANCE SEPSIS LACTATE WITH REFLEX STAT 07/08/2024 8:56 PM OFFICE ASSISTANCE LIPASE STAT 07/08/2024 8:56 PM OFFICE ASSISTANCE COMPREHENSIVE METABOLIC PANEL STAT 07/08/2024 8:56 PM OFFICE ASSISTANCE CBC WITH AUTO DIFFERENTIAL STAT 07/08/2024 8:56 PM OFFICE ASSISTANCE RESPIRATORY PATHOGEN PANEL STAT 07/08/2024 8:56 PM OFFICE ASSISTANCE ECG 12-LEAD Routine 07/08/2024 8:28 PM OFFICE ASSISTANCE XR CHEST 1 VIEW ED 07/08/2024 8:18 PM OFFICE ASSISTANCE POCT GLUCOSE DEVICE Routine 06/28/2024 4 :24 PM OFFICE ASSISTANCE POCT GLUCOSE DEVICE Routine 06/28/2024 1 2:30 PM OFFICE ASSISTANCE POCT GLUCOSE DEVICE Routine 06/28/2024 7 :43 AM OFFICE ASSISTANCE POCT GLUCOSE DEVICE Routine 06/28/2024 4 :01 AM OFFICE ASSISTANCE POCT GLUCOSE DEVICE Routine 06/27/2024 1 1:28 PM OFFICE ASSISTANCE EGFR Routine 06/27/2024 9:30 PM OFFICE ASSISTANCE PHOSPHORUS Routine 06/27/2024 9:30 PM OFFICE ASSISTANCE MAGNESIUM Routine 06/27/2024 9:30 PM OFFICE ASSISTANCE BASIC METABOLIC PANEL Routine 06/27/2024 9:30 PM OFFICE ASSISTANCE POCT GLUCOSE DEVICE Routine 06/27/2024 8 :39 PM OFFICE ASSISTANCE POCT GLUCOSE DEVICE Routine 06/27/2024 5 :10 PM OFFICE ASSISTANCE POCT GLUCOSE DEVICE Routine 06/27/2024 4 :27 PM OFFICE ASSISTANCE POCT GLUCOSE DEVICE Routine 06/27/2024 1 :06 PM OFFICE ASSISTANCE POCT GLUCOSE DEVICE Routine 06/27/2024 9 :59 AM OFFICE ASSISTANCE EGFR Routine 06/26/2024 10:21 PM OFFICE ASSISTANCE DIFFERENTIAL AUTO Routine 06/26/2024 10: 21 PM OFFICE ASSISTANCE PHOSPHORUS Routine 06/26/2024 10:21 PM OFFICE ASSISTANCE MAGNESIUM Routine 06/26/2024 10:21 PM OFFICE ASSISTANCE CBC WITH AUTO DIFFERENTIAL Routine 06/26/2024 10:21 PM OFFICE ASSISTANCE BASIC METABOLIC PANEL Routine 06/26/2024 10:21 PM OFFICE ASSISTANCE HEPATITIS B SURFACE ANTIGEN Routine 06/26/2024 10:21 PM OFFICE ASSISTANCE PHOSPHORUS Routine 06/26/2024 3:21 PM OFFICE ASSISTANCE RPR Routine 06/26/2024 3:21 PM OFFICE ASSISTANCE HEPATITIS C ANTIBODY Routine 06/26/2024 3:21 PM OFFICE ASSISTANCE HIV 1/2 ANTIBODY PLUS P24 ANTIGEN Routine 06/26/2024 3:21 PM OFFICE ASSISTANCE EGFR Routine 06/26/2024 12:16 AM OFFICE ASSISTANCE PHOSPHORUS Routine 06/26/2024 12:16 AM OFFICE ASSISTANCE MAGNESIUM Routine 06/26/2024 12:16 AM OFFICE ASSISTANCE BASIC METABOLIC PANEL Routine 06/26/2024 12:16 AM OFFICE ASSISTANCE POCT GLUCOSE DEVICE Routine 06/23/2024 1 1:36 AM OFFICE ASSISTANCE CBC WITHOUT DIFFERENTIAL Timed 06/23/2024 9:07 AM OFFICE ASSISTANCE VANCOMYCIN LEVEL TROUGH Routine 06/23/2024 9:00 AM OFFICE ASSISTANCE EGFR Routine 06/23/2024 9:00 AM OFFICE ASSISTANCE MAGNESIUM Routine 06/23/2024 9:00 AM OFFICE ASSISTANCE PHOSPHORUS Routine 06/23/2024 9:00 AM OFFICE ASSISTANCE BASIC METABOLIC PANEL Routine 06/23/2024 9:00 AM OFFICE ASSISTANCE G TO GJ-TUBE REPLACEMENT IP Routine 06/22/2024 1:24 PM OFFICE ASSISTANCE C. DIFFICILE TESTING Routine 06/21/2024 11:11 AM OFFICE ASSISTANCE INFECTION PREVENTION VRE CULTURE Routine 06/21/2024 11:10 AM OFFICE ASSISTANCE VANCOMYCIN LEVEL TROUGH Timed 06/21/2024 7:16 AM OFFICE ASSISTANCE EGFR Routine 06/21/2024 5:03 AM OFFICE ASSISTANCE DIFFERENTIAL AUTO Routine 06/21/2024 5:0 3 AM OFFICE ASSISTANCE PHOSPHORUS Timed 06/21/2024 5:03 AM OFFICE ASSISTANCE MAGNESIUM Routine 06/21/2024 5:03 AM OFFICE ASSISTANCE COMPREHENSIVE METABOLIC PANEL Routine 06/21/2024 5:03 AM OFFICE ASSISTANCE CBC WITH AUTO DIFFERENTIAL Routine 06/21/2024 5:03 AM OFFICE ASSISTANCE MSSA/MRSA (STAPHYLOCOCCUS AUREUS) CULTURE Routine 06/20/2024 10:30 PM OFFICE ASSISTANCE XR ABDOMEN AP 1 VIEW IP Routine 06/20/2024 10:29 AM OFFICE ASSISTANCE URINALYSIS, MICROSCOPIC ONLY Routine 06/19/2024 9:34 PM OFFICE ASSISTANCE URINALYSIS AND REFLEX TO MICROSCOPIC AND CULTURE Routine 06/19/2024 9:34 PM OFFICE ASSISTANCE DIFFERENTIAL AUTO Routine 06/19/2024 9:2 8 PM OFFICE ASSISTANCE CBC WITH AUTO DIFFERENTIAL Routine 06/19/2024 9:28 PM OFFICE ASSISTANCE VALPROIC ACID LEVEL, TOTAL Timed 06/19/2024 9:28 PM OFFICE ASSISTANCE LACOSAMIDE Routine 06/19/2024 9:28 PM OFFICE ASSISTANCE RESPIRATORY PATHOGEN PANEL Routine 06/19/2024 9:10 PM OFFICE ASSISTANCE AEROBIC CULTURE AND GRAM STAIN Routine 06/19/2024 6:53 PM OFFICE ASSISTANCE XR CHEST 1 VIEW IP Routine 06/19/2024 6:47 PM OFFICE ASSISTANCE RESPIRATORY PATHOGEN PANEL Routine 06/19/2024 6:46 PM OFFICE ASSISTANCE XR ABDOMEN AP 1 VIEW IP Routine 06/19/2024 4:09 PM OFFICE ASSISTANCE XR CHEST 1 VIEW IP Routine 06/19/2024 4:08 PM OFFICE ASSISTANCE EGFR Timed 06/19/2024 2:47 PM OFFICE ASSISTANCE DIFFERENTIAL AUTO Timed 06/19/2024 2:4 7 PM OFFICE ASSISTANCE PHOSPHORUS Timed 06/19/2024 2:47 PM OFFICE ASSISTANCE MAGNESIUM Timed 06/19/2024 2:47 PM OFFICE ASSISTANCE COMPREHENSIVE METABOLIC PANEL Timed 06/19/2024 2:47 PM OFFICE ASSISTANCE CBC WITH AUTO DIFFERENTIAL Timed 06/19/2024 2:47 PM OFFICE ASSISTANCE POCT GLUCOSE DEVICE Routine 06/19/2024 2 :25 PM OFFICE ASSISTANCE XR ABDOMEN AP 1 VIEW IP Routine 06/16/2024 6:16 PM OFFICE ASSISTANCE EGFR Routine 06/16/2024 12:42 PM OFFICE ASSISTANCE DIFFERENTIAL AUTO Routine 06/16/2024 12: 42 PM OFFICE ASSISTANCE PHOSPHORUS Routine 06/16/2024 12:42 PM OFFICE ASSISTANCE MAGNESIUM Routine 06/16/2024 12:42 PM OFFICE ASSISTANCE COMPREHENSIVE METABOLIC PANEL Routine 06/16/2024 12:42 PM OFFICE ASSISTANCE CBC WITH AUTO DIFFERENTIAL Routine 06/16/2024 12:42 PM OFFICE ASSISTANCE XR ABDOMEN AP 1 VIEW ED Urgent/IP Urgent 06/15/2024 1:57 AM OFFICE ASSISTANCE EGFR Routine 06/13/2024 4:59 AM OFFICE ASSISTANCE DIFFERENTIAL AUTO Routine 06/13/2024 4: 59 AM OFFICE ASSISTANCE VALPROIC ACID LEVEL, TOTAL Routine 06/13/2024 4:59 AM OFFICE ASSISTANCE CBC WITH AUTO DIFFERENTIAL Routine 06/13/2024 4:59 AM OFFICE ASSISTANCE PHOSPHORUS Routine 06/13/2024 4:59 AM OFFICE ASSISTANCE MAGNESIUM Routine 06/13/2024 4:59 AM OFFICE ASSISTANCE COMPREHENSIVE METABOLIC PANEL Routine 06/13/2024 4:59 AM OFFICE ASSISTANCE LACOSAMIDE Routine 06/13/2024 4:59 AM OFFICE ASSISTANCE BLOOD CULTURE Routine 06/13/2024 4:59 AM OFFICE ASSISTANCE TSH Routine 06/12/2024 3:51 PM OFFICE ASSISTANCE DIFFERENTIAL AUTO Routine 06/12/2024 3:3 0 PM OFFICE ASSISTANCE CBC WITH AUTO DIFFERENTIAL Routine 06/12/2024 3:30 PM OFFICE ASSISTANCE HEMOGLOBIN A1C Routine 06/12/2024 3:30 PM OFFICE ASSISTANCE TROPONIN I HIGH-SENSITIVITY 4-HOUR Timed 06/12/2024 3:27 PM OFFICE ASSISTANCE XR CHEST 1 VIEW ED 06/12/2024 2:47 PM OFFICE ASSISTANCE URINALYSIS AND REFLEX TO MICROSCOPIC AND CULTURE STAT 06/12/2024 2:38 PM OFFICE ASSISTANCE DIFFERENTIAL AUTO STAT 06/12/2024 2:2 3 PM OFFICE ASSISTANCE CBC WITH AUTO DIFFERENTIAL STAT 06/12/2024 2:23 PM OFFICE ASSISTANCE TROPONIN I HIGH-SENSITIVITY 2-HOUR Timed 06/12/2024 1:[address] ABDOMEN PELVIS W CONTRAST ED 06/12/2024 12:22 PM OFFICE ASSISTANCE ED PERIPHERAL LINE INSERTION Routine 06/12/2024 11:50 AM OFFICE ASSISTANCE INFLUENZA A/B, RSV, AND COVID-19 PCR Routine 06/12/2024 11:39 AM OFFICE ASSISTANCE POCT CREATININE - DEVICE Routine 06/12/2024 11:29 AM OFFICE ASSISTANCE EGFR STAT 06/12/2024 11:22 AM OFFICE ASSISTANCE DIFFERENTIAL AUTO STAT 06/12/2024 11: 22 AM OFFICE ASSISTANCE TROPONIN I HIGH-SENSITIVITY SERIES (BASELINE, 2HR, 4HR, 6HR) STAT 06/12/2024 11:22 AM OFFICE ASSISTANCE LIPASE STAT 06/12/2024 11:22 AM OFFICE ASSISTANCE CBC WITH AUTO DIFFERENTIAL STAT 06/12/2024 11:22 AM OFFICE ASSISTANCE COMPREHENSIVE METABOLIC PANEL STAT 06/12/2024 11:22 AM OFFICE ASSISTANCE VALPROIC ACID LEVEL, TOTAL STAT 06/12/2024 11:22 AM OFFICE ASSISTANCE ECG 12-LEAD Routine 06/12/2024 11:01 AM OFFICE ASSISTANCE TNI WITH LIPID PANEL Routine 08/24/2017 4:57 PM CDT from Last 3 Months or Most Recently Relevant to Health Maintenance Results * POCT Rapid HIV Antibody Community Screening-Issa Eligible (07/09/2024 5:32 AM OFFICE ASSISTANCE) Rapid HIV, POC Negative Negative Lot Number [id number] QC Control Line Acceptable Blood 07/09/2024 5:32 AM OFFICE ASSISTANCE Naa Tam MD POINT OF CARE TEST ORDER NICHOLE Final Result * Sepsis Lactate w/ Reflex (07/09/2024 4:33 AM OFFICE ASSISTANCE) Pathologist [facility] Sepsis Lactate 2.0 0.7 - 2.0 mmol/L Blood 07/09/2024 4:33 AM OFFICE ASSISTANCE 07/09/2024 4:42 AM OFFICE ASSISTANCE Naa Tam MD LAB BLOOD ORDERABLES Fin al Result [facility] Department [place] [address] * ED PERIPHERAL LINE INSERTION (07/09/2024 1:18 AM OFFICE ASSISTANCE) Narrative Cherie Damian MD - 07/09/2024 1:18 AM OFFICE ASSISTANCE Atul Barba MD 07/09/2024 1:18 AM Peripheral [...] Sepsis Lactate w/ Reflex (07/09/2024 1:15 AM OFFICE ASSISTANCE) [facility] Sepsis Lactate 2.8(H) 0.7 - 2.0 mmol/L Blood 07/09/2024 1:15 AM OFFICE ASSISTANCE 07/09/2024 1:46 AM OFFICE ASSISTANCE Naa Tam MD LAB BLOOD ORDERABLES Fin al Result Performing Organization Address [facility]/ZIP Co de Phone Number [facility] [place] [address] * RPR Blood (07/09/2024 1:15 AM OFFICE ASSISTANCE) [facility] RPR Nonreactive Nonreactive Blood 07/09/2024 1:15 AM OFFICE ASSISTANCE 07/09/2024 1:40 AM OFFICE ASSISTANCE Result [facility] Naa Tam MD LAB MICROBIOLOGY - GENER AL ORDERABLES Final Result Performing Organization Address [facility] de Phone Number [facility] [place] [address] * N. gonorrhoeae/C. trachomatis Amplification Urine (07/09/2024 1:02 AM OFFICE ASSISTANCE) [facility] C. trachomatis Not Detected Not Detected [facility] N. gonorrhoeae Not Detected Not Detected [facility] Comment: Interpretive Data This assay detects Chlamydia trachomatis and Neisseria gonorrhoeae by nucleic acid amplification testing (NAAT). This assay has been cleared by the [place] Food and Drug administration. The performance characteristics of this test have been verified by the [facility] laboratory. The performance characteristics of this test have not been evaluated in individuals less than 14 years of age. Current Interpretive Data last revised 2023. Urine (None) 07/09/2024 1:02 AM OFFICE ASSISTANCE 07/09/2024 1:35 AM OFFICE ASSISTANCE us Naa Tam MD LAB MICROBIOLOGY - GENER AL ORDERABLES Final Result Performing Organization Address City/[facility]/ZIP Co de Phone Number [facility] Department [place] [address] [facility] * (ABNORMAL) Urinalysis reflex to microscopic and culture Urine, clean voided (07/09/2024 1:02 AM OFFICE ASSISTANCE) Color, ur Straw Yellow Clarity, ur Clear Clear [facility] Specific gravity, ur >1.042(H) 1.003 - 1.030 [facility] pH, urine 7.5 [facility] Comment: Interpretive Data U rine pH is affected by diet, medications, systemic acid-base disturbances, and renal tubular function. pH may affect urinary stone formation. For example, urine pH below 6.0 may help reduce the tendency for calcium phosphate stones and pH greater than 6.0 may reduce the tendency for uric acid stone formation. Source: [facility] Current Interpretive Data was last revised on 2017 Protein, ur ql Trace Negative [facility] Glucose, ur ql Negative Negative [facility] Ketones, ur Negative Negative [facility] Bilirubin, ur Negative Negative [facility] Blood, ur Negative Negative [facility] Urobilinogen, ur <2.0 <2.0 mg/dL [facility] Nitrite, ur Negative Negative [facility] Leukocyte esterase, ur Negative Negative [facility] UA reflex comment Reflex conditions for microscopic UA and culture not met. [facility] Urine, clean voided 07/09/2024 1:02 AM OFFICE ASSISTANCE 07/09/2024 1:15 AM OFFICE ASSISTANCE us Naa Tam MD LAB MICROBIOLOGY - GENER AL ORDERABLES Final Result Performing Organization Address [facility] Co de Phone Number [facility] [place] [address] * ED PERIPHERAL LINE INSERTION (07/08/2024 10:11 PM OFFICE ASSISTANCE) Narrative Tri Martinez MD - 07/08/2024 10:11 PM OFFICE ASSISTANCE Atul Barba MD 07/08/2024 10:12 PM Peripheral [...] Abdomen Pelvis W Contrast (07/08/2024 9:55 PM OFFICE ASSISTANCE) Anatomical Region Laterality Modality Body N/A Computed Tomogra phy 07/08/2024 10:3 2 PM OFFICE ASSISTANCE Impressions 07/09/2024 7:23 AM OFFICE ASSISTANCE Liquid stool within the colon, indicative of diarrheal state. Otherwise, no acute abnormalities in the abdomen or pelvis. Dictated by: Delia Morton MD The radiology attending physician has personally reviewed this study, and had reviewed and/or edited this written report and agrees with it. Electronically signed by: Marlon Kohler M.D. Narrative 07/09/2024 7:23 AM OFFICE ASSISTANCE EXAMINATION: Computed tomography of the chest, abdomen [...] Sepsis Lactate w/ Reflex (07/08/2024 8:56 PM OFFICE ASSISTANCE) [facility] Sepsis Lactate 2.4(H) 0.7 - 2.0 mmol/L Blood 07/08/2024 8:56 PM OFFICE ASSISTANCE 07/08/2024 9:24 PM OFFICE ASSISTANCE us Naa Tam MD LAB BLOOD ORDERABLES Fin al Result [facility] Department of Laboratories [place], [place] [id number] * eGFR (07/08/2024 8:56 PM OFFICE ASSISTANCE) [facility] eGFR >90 >=60 mL/min/1. 73 m2 [...] last reviewed 2021. Blood 07/08/2024 8:56 PM OFFICE ASSISTANCE 07/08/2024 9:26 PM OFFICE ASSISTANCE us Naa Tam MD LAB BLOOD ORDERABLES Fin al Result [facility] Department [place] [address] * Differential, auto (07/08/2024 8:56 PM OFFICE ASSISTANCE) Neutrophil abs 4.4 1.5 - 6.5 K/cumm Imm gran abs 0.0 0.0 - 0.1 K/cumm [facility] Lymphocyte abs 2.6 0.8 - 3.3 K/cumm [facility] Monocyte abs 0.5 0.2 - 0.8 K/cumm [facility] Eosinophil abs 0.5 0.0 - 0.5 K/cumm [facility] Basophil abs 0.0 0.0 - 0.1 K/cumm [facility] Neutrophil pct 54.7 % [facility] Comment: Interpretive Data Percent cell count reference ranges are not reported, since discordance with absolute values may lead to misinterpretation of CBC data. Current Interpretive Data was last revised on 2017. Imm gran pct 0.2 % [facility] Comment: Interpretive Data Percent cell count reference ranges are not reported, since discordance with absolute values may lead to misinterpretation of CBC data. Current Interpretive Data was last revised on 2017. Lymphocyte pct 32.1 % [facility] Comment: Interpretive Data Percent cell count reference ranges are not reported, since discordance with absolute values may lead to misinterpretation of CBC data. Current Interpretive Data was last revised on 2017. Monocyte pct 6.6 % [facility] Comment: Interpretive Data Percent cell count reference ranges are not reported, since discordance with absolute values may lead to misinterpretation of CBC data. Current Interpretive Data was last revised on 2017. Eosinophil pct 6.0 % [facility] Comment: Interpretive Data Percent cell count reference ranges are not reported, since discordance with absolute values may lead to misinterpretation of CBC data. Current Interpretive Data was last revised on 2017. Basophil pct 0.4 % [facility] Comment: Interpretive Data Percent cell count reference ranges are not reported, since discordance with absolute values may lead to misinterpretation of CBC data. Current Interpretive Data was last revised on 2017. Blood 07/08/2024 8:56 PM OFFICE ASSISTANCE 07/08/2024 9:27 PM OFFICE ASSISTANCE us Naa Tam MD LAB BLOOD ORDERABLES Fin al Result [facility] Department [place] [address] * Respiratory pathogen panel Nasopharyngeal (07/08/2024 8:56 PM OFFICE ASSISTANCE) Pathologist [facility] Influenza A RNA Not Detected Not Detected Influenza B RNA Not Detected Not Detected [facility] RSV RNA Not Detected Not Detected [facility] COVID-19 RNA Not Detected Not Detected [facility] Coronavirus 229E RNA Not Detected Not Detected [facility] Coronavirus HKU1 RNA Not Detected Not Detected [facility] [facility] Coronavirus NL63 RNA Not Detected Not Detected [facility] Coronavirus OC43 RNA Not Detected Not Detected [facility] Adenovirus DNA Not Detected Not Detected [facility] Metapneumovirus RNA Not Detected Not Detected [facility] Rhinovirus/Enterov irus RNA Not Detected Not Detected [facility] Parainfluenza 1 RNA Not Detected Not Detected [facility] Parainfluenza 2 RNA Not Detected Not Detected [facility] Parainfluenza 3 RNA Not Detected Not Detected [facility] Parainfluenza 4 RNA Not Detected Not Detected [facility] B. pertussis DNA Not Detected Not Detected [facility] B. parapertussis DNA Not Detected Not Detected [facility] C. pneumoniae DNA Not Detected Not Detected [facility] M. pneumoniae DNA Not Detected Not Detected [facility] Nasopharyngeal 07/08/2024 8: 56 PM OFFICE ASSISTANCE 07/08/2024 9:25 PM OFFICE ASSISTANCE Narrative [facility] - 07/08/2024 10:16 PM OFFICE ASSISTANCE Is the Patient experiencing symptoms consistent with COVID?->Yes Surveillance testing for transplant patient?->No Interpretive Data The [employer] FilmArray Respiratory Panel (RP2.1) assay is a [...] assay has FDA clearance for testing of TILE PICKER swabs. The performance of additional specimen types has been assessed by the performing laboratory. The performance characteristics of this assay have been determined by [facility]. Current interpretive data was last revised on 22. us Naa Tam MD LAB MICROBIOLOGY - [facility] ORDERABLES Final Result [facility] [place] [address] * (ABNORMAL) CBC with auto differential (07/08/2024 8:56 PM OFFICE ASSISTANCE) Pathologist [facility] WBC 8.0 3.8 - 9.9 K/cumm Hgb 14.4 13.0 - 17.5 g/dL [facility] Hct 43.3 38.9 - 50.3 % [facility] Plt 236 150 - 400 K/cumm [facility] MPV 12.4(H) 9.1 - 12.3 fL [facility] RBC 4.49 4.30 - 5.80 M/cumm [facility] MCV 96.4 81.3 - 96.4 fL [facility] MCH 32.1 27.1 - 33.3 pg [facility] MCHC 33.3 32.3 - 35.7 g/dL [facility] RDW CV 13.5 11.1 - 14.9 % [facility] RDW SD 47.9 35.7 - 48.1 fL [facility] NRBC abs 0.00 0.00 - 0.01 K/cumm [facility] Blood 07/08/2024 8:56 PM OFFICE ASSISTANCE 07/08/2024 9:27 PM OFFICE ASSISTANCE Naa Tam MD LAB BLOOD ORDERABLES Fin al Result Performing Organization Address City/[facility]/ZIP Co de Phone Number [facility] [place] [address] * Lipase (07/08/2024 8:56 PM OFFICE ASSISTANCE) Pathologist [facility] Lipase 32 10 - 99 Units/L Blood 07/08/2024 8:56 PM OFFICE ASSISTANCE 07/08/2024 9:26 PM OFFICE ASSISTANCE us Naa Tam MD LAB BLOOD ORDERABLES Fin al Result Performing Organization Address [facility] de Phone Number [facility] [place] [address] * (ABNORMAL) Comprehensive metabolic panel (07/08/2024 8:56 PM OFFICE ASSISTANCE) [facility] Sodium 141 135 - 145 mmol/L Potassium, pl 4.5 3.3 - 4.9 mmol/L [facility] Chloride 102 97 - 110 mmol/L [facility] CO2 28 22 - 32 mmol/L [facility] Anion gap 11 2 - 15 mmol/L [facility] BUN 15 6 - 25 mg/dL [facility] Creatinine 0.63(L) 0.80 - 1.30 mg/dL [facility] Glucose 110 70 - 199 mg/dL [facility] Comment: Interpretive Data Fasting glucose >/= [...] 2022. Calcium 10.1 8.5 - 10.3 mg/dL [facility] Bilirubin, total 0.2 0.1 - 1.2 mg/dL [facility] Protein, pl 8.0 6.5 - 8.5 g/dL [facility] Albumin 4.1 3.5 - 5.0 g/dL [facility] Alk phos 110 40 - 130 Units/L [facility] ALT 28 7 - 55 Units/L [facility] AST 26 10 - 50 Units/L [facility] Blood 07/08/2024 8:56 PM OFFICE ASSISTANCE 07/08/2024 9:26 PM OFFICE ASSISTANCE us Naa Tam MD LAB BLOOD ORDERABLES Fin al Result Performing Organization Address [facility] Co de Phone Number [facility] [place] [address] * ECG 12-LEAD (07/08/2024 8:28 PM OFFICE ASSISTANCE) Narrative [facility] - 07/08/2024 8:28 PM OFFICE ASSISTANCE Naa Tam MD 07/08/2024 8:30 PM ECG [...] ORDERABLES Final Re sult Performing Organization Address City/[facility]/ZIP Co de Phone Number [facility] * XR Chest 1 View (07/08/2024 8:18 PM OFFICE ASSISTANCE) Anatomical Region Laterality Modality Body, Chest N/A Computed Radiogr aphy 07/08/2024 8:28 PM OFFICE ASSISTANCE Impressions 07/08/2024 9:56 PM OFFICE ASSISTANCE Comparison is made to chest graft dated [...] Sekou Wolf M.D. Narrative 07/08/2024 9:56 PM OFFICE ASSISTANCE EXAMINATION: 1 view chest radiograph Procedure Note [...] Result * POCT glucose (06/28/2024 4:24 PM OFFICE ASSISTANCE) Glucose, POC 191 70 - 199 mg/dL Blood 06/28/2024 4:24 PM OFFICE ASSISTANCE 06/28/2024 4:24 PM OFFICE ASSISTANCE us Kami Dupont MD LAB POCT ORDERABLES - DEV ICE Final Result [facility] [place] [address] * POCT glucose (06/28/2024 12:30 PM OFFICE ASSISTANCE) Glucose, POC 197 70 - 199 mg/dL Blood 06/28/2024 12:3 0 PM OFFICE ASSISTANCE 06/28/2024 12:30 PM OFFICE ASSISTANCE Kami Dupont MD LAB POCT ORDERABLES - DEV ICE Final Result Performing Organization Address City/[facility] Co de Phone Number [facility] [place] [address] * POCT glucose (06/28/2024 7:43 AM OFFICE ASSISTANCE) Glucose, POC 191 70 - 199 mg/dL Blood 06/28/2024 7:43 AM OFFICE ASSISTANCE 06/28/2024 7:43 AM OFFICE ASSISTANCE Kami Dupont MD LAB POCT ORDERABLES - DEV ICE Final Result Performing Organization Address [facility] Co de Phone Number [facility] [place] [address] * POCT glucose (06/28/2024 4:01 AM OFFICE ASSISTANCE) Glucose, POC 173 70 - 199 mg/dL Blood 06/28/2024 4:01 AM OFFICE ASSISTANCE 06/28/2024 4:01 AM OFFICE ASSISTANCE Kami Dupont MD LAB POCT ORDERABLES - DEV ICE Final Result Performing Organization Address [facility] de Phone Number [facility] [place] [address] * (ABNORMAL) POCT glucose (06/27/2024 11:28 PM OFFICE ASSISTANCE) Glucose, POC 220(H) 70 - 199 mg/dL Comment:Use Protocol Glucose comment 1 Use Protocol [facility] Blood 06/27/2024 11:2 8 PM OFFICE ASSISTANCE 06/27/2024 11:28 PM OFFICE ASSISTANCE Kami Dupont MD LAB POCT ORDERABLES - DEV ICE Final Result Performing Organization Address [facility] Co de Phone Number [facility] [place] [address] * eGFR (06/27/2024 9:30 PM OFFICE ASSISTANCE) eGFR >90 >=60 mL/min/1. 73 m2 Comment: [...] last reviewed 2021. Blood 06/27/2024 9:30 PM OFFICE ASSISTANCE 06/27/2024 9:45 PM OFFICE ASSISTANCE Kami Dupont MD LAB BLOOD ORDERABLES Lulu l Result Performing Organization Address [facility]/ZIP Co de Phone Number [facility] [place] [address] * Phosphorus (06/27/2024 9:30 PM OFFICE ASSISTANCE) Phosphorus, pl 3.3 2.3 - 4.5 mg/dL Comment:Repeated and Verifie d Blood 06/27/2024 9:30 PM OFFICE ASSISTANCE 06/27/2024 9:45 PM OFFICE ASSISTANCE Kami Dupont MD LAB BLOOD ORDERABLES Lulu l Result Performing Organization Address City/[facility] Co de Phone Number [facility] [place] [address] * Magnesium (06/27/2024 9:30 PM OFFICE ASSISTANCE) Pathologist [facility] Magnesium 1.9 1.4 - 2.5 mg/dL Blood 06/27/2024 9:30 PM OFFICE ASSISTANCE 06/27/2024 9:45 PM OFFICE ASSISTANCE Kami Dupont MD LAB BLOOD ORDERABLES Lulu l Result Performing Organization Address [facility] de Phone Number [facility] [place] [address] * (ABNORMAL) Basic metabolic panel (06/27/2024 9:30 PM OFFICE ASSISTANCE) Pathologist [facility] Sodium 141 135 - 145 mmol/L Potassium, pl 4.4 3.3 - 4.9 mmol/L [facility] Chloride 105 97 - 110 mmol/L [facility] CO2 28 22 - 32 mmol/L [facility] Anion gap 8 2 - 15 mmol/L [facility] BUN 9 6 - 25 mg/dL [facility] Creatinine 0.47(L) 0.80 - 1.30 mg/dL [facility] Glucose 208(H) 70 - 199 mg/dL [facility] Comment: Interpretive Data Fasting glucose >/= [...] 2022. Calcium 8.9 8.5 - 10.3 mg/dL [facility] Blood 06/27/2024 9:30 PM OFFICE ASSISTANCE 06/27/2024 9:45 PM OFFICE ASSISTANCE Kami Dupont MD LAB BLOOD ORDERABLES Lulu l Result Performing Organization Address City/[facility] Co de Phone Number [facility] [place] [address] * POCT glucose (06/27/2024 8:39 PM OFFICE ASSISTANCE) Glucose, POC 195 70 - 199 mg/dL Blood 06/27/2024 8:39 PM OFFICE ASSISTANCE 06/27/2024 8:39 PM OFFICE ASSISTANCE Kami Dupont MD LAB POCT ORDERABLES - DEV ICE Final Result Performing Organization Address [facility] Co de Phone Number [facility] [place] [address] * POCT glucose (06/27/2024 5:10 PM OFFICE ASSISTANCE) Glucose, POC 194 70 - 199 mg/dL Blood 06/27/2024 5:10 PM OFFICE ASSISTANCE 06/27/2024 5:10 PM OFFICE ASSISTANCE Kami Dupont MD LAB POCT ORDERABLES - DEV ICE Final Result Performing Organization Address [facility] Co de Phone Number [facility] [place] [address] * (ABNORMAL) POCT glucose (06/27/2024 4:27 PM OFFICE ASSISTANCE) Glucose, POC 224(H) 70 - 199 mg/dL Blood 06/27/2024 4:27 PM OFFICE ASSISTANCE 06/27/2024 4:27 PM OFFICE ASSISTANCE us Kami Dupont MD LAB POCT ORDERABLES - DEV ICE Final Result Performing Organization Address [facility] de Phone Number [facility] [place] [address] * POCT glucose (06/27/2024 1:06 PM OFFICE ASSISTANCE) Glucose, POC 173 70 - 199 mg/dL Blood 06/27/2024 1:06 PM OFFICE ASSISTANCE 06/27/2024 1:06 PM OFFICE ASSISTANCE Kami Dupont MD LAB POCT ORDERABLES - DEV ICE Final Result Performing Organization Address [facility] de Phone Number [facility] [place] [address] * POCT glucose (06/27/2024 9:59 AM OFFICE ASSISTANCE) Glucose, POC 158 70 - 199 mg/dL Blood 06/27/2024 9:59 AM OFFICE ASSISTANCE 06/27/2024 9:59 AM OFFICE ASSISTANCE Kami Dupont MD LAB POCT ORDERABLES - DEV ICE Final Result Performing Organization Address [facility] de Phone Number [facility] [place] [address] * eGFR (06/26/2024 10:21 PM OFFICE ASSISTANCE) eGFR >90 >=60 mL/min/1. 73 m2 Comment: [...] reviewed 2021. Blood 06/26/2024 10:2 1 PM OFFICE ASSISTANCE 06/26/2024 10:53 PM OFFICE ASSISTANCE us Kami Dupont MD LAB BLOOD ORDERABLES Lulu coley Result [facility] [place] [address] * Differential, auto (06/26/2024 10:21 PM OFFICE ASSISTANCE) Pathologist [facility] Neutrophil abs 5.0 1.5 - 6.5 K/cumm Imm gran abs 0.0 0.0 - 0.1 K/cumm [facility] Lymphocyte abs 2.4 0.8 - 3.3 K/cumm [facility] Monocyte abs 0.8 0.2 - 0.8 K/cumm [facility] Eosinophil abs 0.4 0.0 - 0.5 K/cumm [facility] Basophil abs 0.0 0.0 - 0.1 K/cumm [facility] Neutrophil pct 58.2 % [facility] Comment: Interpretive Data Percent cell count reference ranges are not reported, since discordance with absolute values may lead to misinterpretation of CBC data. Current Interpretive Data was last revised on 2017. Imm gran pct 0.3 % [facility] Comment: Interpretive Data Percent cell count reference ranges are not reported, since discordance with absolute values may lead to misinterpretation of CBC data. Current Interpretive Data was last revised on 2017. Lymphocyte pct 27.9 % [facility] Comment: Interpretive Data Percent cell count reference ranges are not reported, since discordance with absolute values may lead to misinterpretation of CBC data. Current Interpretive Data was last revised on 2017. Monocyte pct 9.2 % [facility] Comment: Interpretive Data Percent cell count reference ranges are not reported, since discordance with absolute values may lead to misinterpretation of CBC data. Current Interpretive Data was last revised on 2017. Eosinophil pct 4.1 % [facility] Comment: Interpretive Data Percent cell count reference ranges are not reported, since discordance with absolute values may lead to misinterpretation of CBC data. Current Interpretive Data was last revised on 2017. Basophil pct 0.3 % [facility] Comment: Interpretive Data Percent cell count reference ranges are not reported, since discordance with absolute values may lead to misinterpretation of CBC data. Current Interpretive Data was last revised on 2017. Blood 06/26/2024 10:2 1 PM OFFICE ASSISTANCE 06/26/2024 10:53 PM OFFICE ASSISTANCE us Kami Dupont MD LAB BLOOD ORDERABLES Lulu coley Result [facility] [place] [address] * (ABNORMAL) CBC with auto differential (06/26/2024 10:21 PM OFFICE ASSISTANCE) WBC 8.6 3.8 - 9.9 K/cumm Hgb 13.1 13.0 - 17.5 g/dL [facility] Hct 39.1 38.9 - 50.3 % [facility] Plt 173 150 - 400 K/cumm [facility] MPV 13.1(H) 9.1 - 12.3 fL [facility] RBC 4.07(L) 4.30 - 5.80 M/cumm [facility] MCV 96.1 81.3 - 96.4 fL [facility] MCH 32.2 27.1 - 33.3 pg [facility] MCHC 33.5 32.3 - 35.7 g/dL [facility] RDW CV 13.5 11.1 - 14.9 % [facility] RDW SD 47.8 35.7 - 48.1 fL [facility] NRBC abs 0.00 0.00 - 0.01 K/cumm [facility] Blood 06/26/2024 10:2 1 PM OFFICE ASSISTANCE 06/26/2024 10:53 PM OFFICE ASSISTANCE Kami Dupont MD LAB BLOOD ORDERABLES Lulu l Result Performing Organization Address [facility] de Phone Number [facility] [place] [address] * Hepatitis B Surface Antigen Blood (06/26/2024 10:21 PM OFFICE ASSISTANCE) Pathologist [facility] HepBsAg Nonreactive Nonreactive Blood 06/26/2024 10:2 1 PM OFFICE ASSISTANCE 06/26/2024 10:53 PM OFFICE ASSISTANCE Kami Dupont MD LAB MICROBIOLOGY - GENERA L ORDERABLES Final Result Performing Organization Address [facility] de Phone Number [facility] [place] [address] * (ABNORMAL) Phosphorus (06/26/2024 10:21 PM OFFICE ASSISTANCE) Pathologist [facility] Phosphorus, pl <0.7(L) 2.3 - 4.5 mg/dL Comment:Repeated and Verifie d Blood 06/26/2024 10:2 1 PM OFFICE ASSISTANCE 06/26/2024 10:53 PM OFFICE ASSISTANCE Kami Dupont MD LAB BLOOD ORDERABLES Lulu l Result Performing Organization Address [facility] de Phone Number [facility] [place] [address] * Magnesium (06/26/2024 10:21 PM OFFICE ASSISTANCE) Pathologist [facility] Magnesium 2.0 1.4 - 2.5 mg/dL Blood 06/26/2024 10:2 1 PM OFFICE ASSISTANCE 06/26/2024 10:53 PM OFFICE ASSISTANCE Kami Dupont MD LAB BLOOD ORDERABLES Lulu l Result Performing Organization Address City/[facility]/ZIP Co de Phone Number [facility] [place] [address] * (ABNORMAL) Basic metabolic panel (06/26/2024 10:21 PM OFFICE ASSISTANCE) [facility] Sodium 141 135 - 145 mmol/L Potassium, pl 4.7 3.3 - 4.9 mmol/L [facility] Chloride 106 97 - 110 mmol/L [facility] CO2 28 22 - 32 mmol/L [facility] Anion gap 7 2 - 15 mmol/L [facility] BUN 11 6 - 25 mg/dL [facility] Creatinine 0.47(L) 0.80 - 1.30 mg/dL [facility] Glucose 213(H) 70 - 199 mg/dL [facility] Comment: Interpretive Data Fasting glucose >/= [...] 2022. Calcium 9.3 8.5 - 10.3 mg/dL [facility] Blood 06/26/2024 10:2 1 PM OFFICE ASSISTANCE 06/26/2024 10:53 PM OFFICE ASSISTANCE Kami Dupont MD LAB BLOOD ORDERABLES Lulu l Result Performing Organization Address [facility]/ZIP Co de Phone Number [facility] [place] [address] * HIV 1/2 Antibody plus p24 Antigen Blood (06/26/2024 3:21 PM OFFICE ASSISTANCE) HIV 1/2 ab + p24 ag Nonreactive Nonreactive Comment:Nonreactive for HIV- 1 antigen and HIV-1/HIV-2 antibodies. No laboratory evidence of HIV infection. If acute HIV infection is suspected, consider testing for HIV-1 RNA. Current interpretive data was last revised on 22. Blood 06/26/2024 3:21 PM OFFICE ASSISTANCE 06/26/2024 3:41 PM OFFICE ASSISTANCE Kami Dupont MD LAB MICROBIOLOGY - GENERA L ORDERABLES Final Result Performing Organization Address [facility] de Phone Number [facility] [place] [address] * Hepatitis C antibody Blood (06/26/2024 3:21 PM OFFICE ASSISTANCE) Pathologist [facility] Hep C Ab Nonreactive Nonreactive Comment:Antibodies to HCV no t detected. Does NOT exclude the possibility of recent exposure to HCV. Current interpretive data was last revised on 22 Blood 06/26/2024 3:21 PM OFFICE ASSISTANCE 06/26/2024 3:41 PM OFFICE ASSISTANCE Kami Dupnot MD LAB MICROBIOLOGY - GENERA L ORDERABLES Final Result Performing Organization Address City/[facility] Co de Phone Number [facility] [place] [address] * RPR Blood (06/26/2024 3:21 PM OFFICE ASSISTANCE) Pathologist [facility] RPR Nonreactive Nonreactive Blood 06/26/2024 3:21 PM OFFICE ASSISTANCE 06/26/2024 3:41 PM OFFICE ASSISTANCE Kami Dupont MD LAB MICROBIOLOGY - GENERA L ORDERABLES Final Result Performing Organization Address [facility] de Phone Number [facility] [place] [address] * (ABNORMAL) Phosphorus (06/26/2024 3:21 PM OFFICE ASSISTANCE) Phosphorus, pl 0.7(L) 2.3 - 4.5 mg/dL Comment:Repeated and Verifie d Blood 06/26/2024 3:21 PM OFFICE ASSISTANCE 06/26/2024 3:41 PM OFFICE ASSISTANCE us Kami Dupont MD LAB BLOOD ORDERABLES Lulu l Result Performing Organization Address City/[facility]/ZIP Co de Phone Number [facility] [place] [address] * eGFR (06/26/2024 12:16 AM OFFICE ASSISTANCE) Pathologist [facility] eGFR >90 >=60 mL/min/1. 73 m2 Comment: [...] reviewed 2021. Blood 06/26/2024 12:1 6 AM OFFICE ASSISTANCE 06/26/2024 12:39 AM OFFICE ASSISTANCE us Patricia Bryant MD LAB BLOOD ORDERABLES Final Res ult [facility] [place] [address] * (ABNORMAL) Phosphorus (06/26/2024 12:16 AM OFFICE ASSISTANCE) [facility] Phosphorus, pl <0.7(L) 2.3 - 4.5 mg/dL Comment:Repeated and Verifie d Blood 06/26/2024 12:1 6 AM OFFICE ASSISTANCE 06/26/2024 12:39 AM OFFICE ASSISTANCE Patricia Bryant MD LAB BLOOD ORDERABLES Final Res ult [facility] [place] [address] * Magnesium (06/26/2024 12:16 AM OFFICE ASSISTANCE) [facility] Magnesium 1.9 1.4 - 2.5 mg/dL Blood 06/26/2024 12:1 6 AM OFFICE ASSISTANCE 06/26/2024 12:39 AM OFFICE ASSISTANCE Patricia Bryant MD LAB BLOOD ORDERABLES Final Res ult [facility] [place] [address] * (ABNORMAL) Basic metabolic panel (06/26/2024 12:16 AM OFFICE ASSISTANCE) [facility] Sodium 142 135 - 145 mmol/L Potassium, pl 4.4 3.3 - 4.9 mmol/L [facility] Comment:Hemolyzed; Potassium value may be falsely elevated by as much as 0.3-0.5 mmol/L. Suggest redraw and reanalysis. Chloride 109 97 - 110 mmol/L [facility] CO2 29 22 - 32 mmol/L [facility] Anion gap 4 2 - 15 mmol/L [facility] BUN 13 6 - 25 mg/dL [facility] Creatinine 0.53(L) 0.80 - 1.30 mg/dL [facility] Glucose 177 70 - 199 mg/dL [facility] Comment: Interpretive Data Fasting glucose >/= [...] 2022. Calcium 9.0 8.5 - 10.3 mg/dL [facility] Blood 06/26/2024 12:1 6 AM OFFICE ASSISTANCE 06/26/2024 12:39 AM OFFICE ASSISTANCE Patricia Bryant MD LAB BLOOD ORDERABLES Final Res ult Performing Organization Address [facility] Co de Phone Number [facility] [place] [address] * POCT glucose (06/23/2024 11:36 AM OFFICE ASSISTANCE) Pathologist [facility] Glucose, POC 95 70 - 199 mg/dL Blood 06/23/2024 11:3 6 AM OFFICE ASSISTANCE 06/23/2024 11:36 AM OFFICE ASSISTANCE Patricia Bryant MD LAB POCT ORDERABLES - DEVICE F inal Result Performing Organization Address [facility] Co de Phone Number [facility] [place] [address] * (ABNORMAL) CBC without differential (06/23/2024 9:07 AM OFFICE ASSISTANCE) [facility] WBC 4.7 3.8 - 9.9 K/cumm Hgb 12.5(L) 13.0 - 17.5 g/dL [facility] Hct 37.4(L) 38.9 - 50.3 % [facility] Plt 145(L) 150 - 400 K/cumm [facility] MPV 12.6(H) 9.1 - 12.3 fL [facility] RBC 3.94(L) 4.30 - 5.80 M/cumm [facility] MCV 94.9 81.3 - 96.4 fL [facility] MCH 31.7 27.1 - 33.3 pg [facility] MCHC 33.4 32.3 - 35.7 g/dL [facility] RDW CV 12.9 11.1 - 14.9 % [facility] RDW SD 45.1 35.7 - 48.1 fL [facility] NRBC abs 0.00 0.00 - 0.01 K/cumm [facility] Blood 06/23/2024 9:07 AM OFFICE ASSISTANCE 06/23/2024 9:28 AM OFFICE ASSISTANCE us Patricia Bryant MD LAB BLOOD ORDERABLES Final Res ult [facility] [place] [address] * eGFR (06/23/2024 9:00 AM OFFICE ASSISTANCE) eGFR >90 >=60 mL/min/1. 73 m2 Comment: [...] last reviewed 2021. Blood 06/23/2024 9:00 AM OFFICE ASSISTANCE 06/23/2024 10:59 AM OFFICE ASSISTANCE Result Rose Bryant MD LAB BLOOD ORDERABLES Final Res ult Performing Organization Address [facility] de Phone Number [facility] [place] [address] * Phosphorus (06/23/2024 9:00 AM OFFICE ASSISTANCE) Phosphorus, pl 2.3 2.3 - 4.5 mg/dL Blood 06/23/2024 9:00 AM OFFICE ASSISTANCE 06/23/2024 10:59 AM OFFICE ASSISTANCE Result Rose Bryant MD LAB BLOOD ORDERABLES Final Res ult Performing Organization Address [facility] de Phone Number [facility] [place] [address] * Magnesium (06/23/2024 9:00 AM OFFICE ASSISTANCE) Magnesium 1.7 1.4 - 2.5 mg/dL Blood 06/23/2024 9:00 AM OFFICE ASSISTANCE 06/23/2024 10:59 AM OFFICE ASSISTANCE Result Rose Bryant MD LAB BLOOD ORDERABLES Final Res ult Performing Organization Address [facility] [place] [address] * Vancomycin level trough (06/23/2024 9:00 AM OFFICE ASSISTANCE) Vancomycin trough 15.2 10.0 - 20.0 mcg/mL Blood 06/23/2024 9:00 AM OFFICE ASSISTANCE 06/23/2024 10:59 AM OFFICE ASSISTANCE Result Rose Bryant MD LAB BLOOD ORDERABLES Final Res ult Performing Organization Address City/[facility] Co de Phone Number [facility] [place] [address] * (ABNORMAL) Basic metabolic panel (06/23/2024 9:00 AM OFFICE ASSISTANCE) Sodium 143 135 - 145 mmol/L Potassium, pl 3.7 3.3 - 4.9 mmol/L [facility] Chloride 108 97 - 110 mmol/L [facility] CO2 28 22 - 32 mmol/L [facility] Anion gap 7 2 - 15 mmol/L [facility] BUN 3(L) 6 - 25 mg/dL [facility] Creatinine 0.50(L) 0.80 - 1.30 mg/dL [facility] Glucose 271(H) 70 - 199 mg/dL [facility] Comment: Interpretive Data Fasting glucose >/= [...] 2022. Calcium 9.0 8.5 - 10.3 mg/dL [facility] Blood 06/23/2024 9:00 AM OFFICE ASSISTANCE 06/23/2024 10:59 AM OFFICE ASSISTANCE us Patricia Bryant MD LAB BLOOD ORDERABLES Final Res ult Performing Organization Address [facility]/ZIP Co de Phone Number [facility] [place] [address] * IR G To GJ-Tube Replacement (06/22/2024 1:24 PM OFFICE ASSISTANCE) Anatomical Region Laterality Modality Body N/A X-Ray Angiograph y 06/22/2024 1:47 PM OFFICE ASSISTANCE Impressions 06/22/2024 4:13 PM OFFICE ASSISTANCE Successful percutaneous 18 Fr 45 cm gastrojejunostomy [...] Sean Hillman M.D. Narrative 06/22/2024 4:13 PM OFFICE ASSISTANCE EXAMINATION: GASTROJEJUNOSTOMY TUBE EXCHANGE HISTORY/INDICATION: 64 yo [...] procedure. TECHNIQUE: Prior to beginning the procedure, [place] Protocol was performed to confirm the patient's [...] placed in the proximal jejunum. A 18 Citizen Of [place], 45 cm long JELLY single/double lumen gastrojejunostomy [...] procedure. TECHNIQUE: Prior to beginning the procedure, [place] Protocol was performed to confirm the patient's [...] placed in the proximal jejunum. A 18 Citizen Of [place], 45 cm long JELLY single/double lumen gastrojejunostomy [...] C. difficile testing Stool (06/21/2024 11:11 AM OFFICE ASSISTANCE) Pathologist [facility] Result Negative Negative Toxin Result Negative Negative [facility] C. diff result Negative, free toxin Negative, free toxin [facility] C. diff interp Negative for toxigenic Clostridioides (Clostridium) difficile. Analysis was performed using a glutamate dehydrogenase antigen detection assay combined with a C. difficile toxin detection assay. [facility] Stool 06/21/2024 11:1 1 AM OFFICE ASSISTANCE 06/21/2024 12:55 PM OFFICE ASSISTANCE Narrative [facility] - 06/21/2024 2:38 PM OFFICE ASSISTANCE Testing for C. difficile is not recommended within 4 days of a negative result, 10 days of a positive, or 24 hours after laxative administration. If this order is clinically indicated, contact the lab and enter the passcode to complete this order.->[id number] Patricia Bryant MD LAB MICROBIOLOGY - GENERAL ORD ERABLES Final Result Performing Organization Address [facility]/ZIP Co de Phone Number [facility] [place] [address] * Infection Prevention VRE Culture Stool (06/21/2024 11:10 AM OFFICE ASSISTANCE) Report Final Report: Negative Stool 06/21/2024 11:1 0 AM OFFICE ASSISTANCE 06/21/2024 2:41 PM OFFICE ASSISTANCE Narrative [facility] - 06/23/2024 11:15 PM OFFICE ASSISTANCE Surveillance culture for Infection Prevention purposes only; results indicate colonization, not infection requiring treatment. Testing performed by [facility] ([phone]). Patricia Bryant MD LAB MICROBIOLOGY - GENERAL ORD ERABLES Final Result [facility] [place] [address] * Vancomycin level trough Draw trough 30 minutes prior to 4th dose. (06/21/2024 7:16 AM OFFICE ASSISTANCE) Vancomycin trough 16.8 10.0 - 20.0 mcg/mL Blood 06/21/2024 7:16 AM OFFICE ASSISTANCE 06/21/2024 7:27 AM OFFICE ASSISTANCE Narrative [facility] - 06/21/2024 8:10 AM OFFICE ASSISTANCE Draw trough 30 minutes prior to 4th dose. Patricia Bryant MD LAB BLOOD ORDERABLES Final Res ult [facility] [place] [address] * eGFR (06/21/2024 5:03 AM OFFICE ASSISTANCE) eGFR >90 >=60 mL/min/1. 73 m2 Comment: [...] last reviewed 2021. Blood 06/21/2024 5:03 AM OFFICE ASSISTANCE 06/21/2024 5:14 AM OFFICE ASSISTANCE Patricia Bryant MD LAB BLOOD ORDERABLES Final Res ult Performing Organization Address City/[facility]/ZIP Co de Phone Number [facility] [place] [address] * Differential, auto (06/21/2024 5:03 AM OFFICE ASSISTANCE) Neutrophil abs 1.7 1.5 - 6.5 K/cumm Imm gran abs 0.0 0.0 - 0.1 K/cumm [facility] Lymphocyte abs 1.7 0.8 - 3.3 K/cumm [facility] Monocyte abs 0.6 0.2 - 0.8 K/cumm [facility] Eosinophil abs 0.3 0.0 - 0.5 K/cumm [facility] Basophil abs 0.0 0.0 - 0.1 K/cumm [facility] Neutrophil pct 38.8 % [facility] Comment: Interpretive Data Percent cell count reference ranges are not reported, since discordance with absolute values may lead to misinterpretation of CBC data. Current Interpretive Data was last revised on 2017. Imm gran pct 0.2 % [facility] Comment: Interpretive Data Percent cell count reference ranges are not reported, since discordance with absolute values may lead to misinterpretation of CBC data. Current Interpretive Data was last revised on 2017. Lymphocyte pct 40.5 % [facility] Comment: Interpretive Data Percent cell count reference ranges are not reported, since discordance with absolute values may lead to misinterpretation of CBC data. Current Interpretive Data was last revised on 2017. Monocyte pct 13.4 % [facility] Comment: Interpretive Data Percent cell count reference ranges are not reported, since discordance with absolute values may lead to misinterpretation of CBC data. Current Interpretive Data was last revised on 2017. Eosinophil pct 6.6 % [facility] Comment: Interpretive Data Percent cell count reference ranges are not reported, since discordance with absolute values may lead to misinterpretation of CBC data. Current Interpretive Data was last revised on 2017. Basophil pct 0.5 % [facility] Comment: Interpretive Data Percent cell count reference ranges are not reported, since discordance with absolute values may lead to misinterpretation of CBC data. Current Interpretive Data was last revised on 2017. Blood 06/21/2024 5:03 AM OFFICE ASSISTANCE 06/21/2024 5:14 AM OFFICE ASSISTANCE us Patricia Bryant MD LAB BLOOD ORDERABLES Final Res ult [facility] [place] [address] * (ABNORMAL) CBC with auto differential (06/21/2024 5:03 AM OFFICE ASSISTANCE) [facility] WBC 4.3 3.8 - 9.9 K/cumm Hgb 11.6(L) 13.0 - 17.5 g/dL [facility] Hct 34.5(L) 38.9 - 50.3 % [facility] Plt 132(L) 150 - 400 K/cumm [facility] MPV 11.3 9.1 - 12.3 fL [facility] RBC 3.53(L) 4.30 - 5.80 M/cumm [facility] MCV 97.7(H) 81.3 - 96.4 fL [facility] MCH 32.9 27.1 - 33.3 pg [facility] MCHC 33.6 32.3 - 35.7 g/dL [facility] RDW CV 13.4 11.1 - 14.9 % [facility] RDW SD 48.0 35.7 - 48.1 fL [facility] NRBC abs 0.00 0.00 - 0.01 K/cumm [facility] Blood 06/21/2024 5:03 AM OFFICE ASSISTANCE 06/21/2024 5:14 AM OFFICE ASSISTANCE Patricia Bryant MD LAB BLOOD ORDERABLES Final Res ult Performing Organization Address City/[facility] Co de Phone Number [facility] [place] [address] * Phosphorus (06/21/2024 5:03 AM OFFICE ASSISTANCE) [facility] Phosphorus, pl 3.1 2.3 - 4.5 mg/dL Blood 06/21/2024 5:03 AM OFFICE ASSISTANCE 06/21/2024 5:14 AM OFFICE ASSISTANCE Patricia Bryant MD LAB BLOOD ORDERABLES Final Res ult [facility] [place] [address] * Magnesium (06/21/2024 5:03 AM OFFICE ASSISTANCE) Magnesium 1.9 1.4 - 2.5 mg/dL Blood 06/21/2024 5:03 AM OFFICE ASSISTANCE 06/21/2024 5:14 AM OFFICE ASSISTANCE Patricia Bryant MD LAB BLOOD ORDERABLES Final Res ult [facility] [place] [address] * (ABNORMAL) Comprehensive metabolic panel (06/21/2024 5:03 AM OFFICE ASSISTANCE) Pathologist [facility] Sodium 145 135 - 145 mmol/L Potassium, pl 3.4 3.3 - 4.9 mmol/L [facility] Chloride 112(H) 97 - 110 mmol/L [facility] CO2 27 22 - 32 mmol/L [facility] Anion gap 6 2 - 15 mmol/L [facility] BUN 9 6 - 25 mg/dL [facility] Creatinine 0.57(L) 0.80 - 1.30 mg/dL [facility] Glucose 106 70 - 199 mg/dL [facility] Comment: Interpretive Data Fasting glucose >/= [...] 2022. Calcium 8.6 8.5 - 10.3 mg/dL [facility] Bilirubin, total 0.2 0.1 - 1.2 mg/dL [facility] Protein, pl 5.6(L) 6.5 - 8.5 g/dL [facility] Albumin 2.7(L) 3.5 - 5.0 g/dL [facility] Alk phos 61 40 - 130 Units/L [facility] ALT 15 7 - 55 Units/L [facility] AST 25 10 - 50 Units/L [facility] Blood 06/21/2024 5:03 AM OFFICE ASSISTANCE 06/21/2024 5:14 AM OFFICE ASSISTANCE Patricia Bryant MD LAB BLOOD ORDERABLES Final Res ult Performing Organization Address 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 Patricia Bryant MD LAB MICROBIOLOGY - GENERAL ORD ERABLES Final Result Performing Organization Address [facility] de Phone Number [facility] [place] [address] * XR Abdomen Ap 1 Vw (06/20/2024 10:29 AM OFFICE ASSISTANCE) Anatomical Region Laterality Modality Body, Abdomen N/A Computed Radiogr aphy 06/20/2024 10:5 3 AM OFFICE ASSISTANCE Impressions 06/20/2024 11:51 AM OFFICE ASSISTANCE Gastrostomy tube. Colonic distention is improved. No radiographic evidence of obstruction. Dictated by: Hunter Hernandez M.D (Ramanan). The radiology attending physician has personally reviewed this study, and had reviewed and/or edited this written report and agrees with it. Electronically signed by: Byron Moya M.D. Narrative 06/20/2024 11:51 AM OFFICE ASSISTANCE EXAMINATION: Abdomen, one view. HISTORY: Abdominal distention. [...] and culture Urine, bladder (06/19/2024 9:34 PM OFFICE ASSISTANCE) Color, ur Straw Yellow Clarity, ur Clear Clear [facility] Specific gravity, ur 1.021 1.003 - 1.030 [facility] pH, urine 7.0 [facility] Comment: Interpretive Data U rine pH is affected by diet, medications, systemic acid-base disturbances, and renal tubular function. pH may affect urinary stone formation. For example, urine pH below 6.0 may help reduce the tendency for calcium phosphate stones and pH greater than 6.0 may reduce the tendency for uric acid stone formation. Source: [employer] Current Interpretive Data was last revised on 2017 Protein, ur ql 1+(A) Negative [facility] Glucose, ur ql Negative Negative [facility] Ketones, ur Negative Negative [facility] Bilirubin, ur Negative Negative [facility] Blood, ur Negative Negative [facility] Urobilinogen, ur <2.0 <2.0 mg/dL [facility] Nitrite, ur Negative Negative [facility] Leukocyte esterase, ur Negative Negative [facility] UA reflex comment Reflex to microscopic UA will be performed. [facility] Urine, bladder 06/19/2024 9: 34 PM OFFICE ASSISTANCE 06/19/2024 10:05 PM OFFICE ASSISTANCE Patricia Bryant MD LAB MICROBIOLOGY - GENERAL ORD ERABLES Final Result Performing Organization Address [facility] Co de Phone Number [facility] [place] [address] * Urinalysis, microscopic only (06/19/2024 9:34 PM OFFICE ASSISTANCE) Pathologist [facility] WBC, ur 0-5 0 - 5 /HPF RBC, ur 0-2 0 - 2 /HPF [facility] Epithelial cells, squamous, ur 1-5 0 - 5 /HPF [facility] Culture Reflex Comment Reflex conditions for urine culture (WBC >10) not met. [facility] Urine, bladder 06/19/2024 9: 34 PM OFFICE ASSISTANCE 06/19/2024 10:05 PM OFFICE ASSISTANCE Patricia Bryant MD LAB URINE ORDERABLES Final Res ult Performing Organization Address [facility] de Phone Number [facility] [place] [address] * (ABNORMAL) Differential, auto (06/19/2024 9:28 PM OFFICE ASSISTANCE) Pathologist [facility] Neutrophil abs 6.0 1.5 - 6.5 K/cumm Imm gran abs 0.0 0.0 - 0.1 K/cumm [facility] Lymphocyte abs 0.7(L) 0.8 - 3.3 K/cumm [facility] Monocyte abs 0.2 0.2 - 0.8 K/cumm [facility] Eosinophil abs 0.2 0.0 - 0.5 K/cumm [facility] Basophil abs 0.0 0.0 - 0.1 K/cumm [facility] Neutrophil pct 84.1 % [facility] Comment: Interpretive Data Percent cell count reference ranges are not reported, since discordance with absolute values may lead to misinterpretation of CBC data. Current Interpretive Data was last revised on 2017. Imm gran pct 0.4 % [facility] Comment: Interpretive Data Percent cell count reference ranges are not reported, since discordance with absolute values may lead to misinterpretation of CBC data. Current Interpretive Data was last revised on 2017. Lymphocyte pct 10.1 % [facility] Comment: Interpretive Data Percent cell count reference ranges are not reported, since discordance with absolute values may lead to misinterpretation of CBC data. Current Interpretive Data was last revised on 2017. Monocyte pct 2.9 % [facility] Comment: Interpretive Data Percent cell count reference ranges are not reported, since discordance with absolute values may lead to misinterpretation of CBC data. Current Interpretive Data was last revised on 2017. Eosinophil pct 2.4 % [facility] Comment: Interpretive Data Percent cell count reference ranges are not reported, since discordance with absolute values may lead to misinterpretation of CBC data. Current Interpretive Data was last revised on 2017. [facility]ophil pct 0.1 % [facility] Comment: Interpretive Data Percent cell count reference ranges are not reported, since discordance with absolute values may lead to misinterpretation of CBC data. Current Interpretive Data was last revised on 2017. Blood 06/19/2024 9:28 PM OFFICE ASSISTANCE 06/19/2024 10:38 PM OFFICE ASSISTANCE us Patricia Bryant MD LAB BLOOD ORDERABLES Final Res ult [facility] [place] [address] * Lacosamide level (06/19/2024 9:28 PM OFFICE ASSISTANCE) Lacosamide 9.6 1.0 - 10.0 mcg/mL [facility] Comment: ADDITIONAL INFORMATION This test was developed and its performance characteristics determined by [facility] in a manner consistent with CLIA requirements. This test has not been cleared or approved by the U.S. Food and Drug Administration. Test Performed by: [facility] Laboratories [facility] [address] [place] [address] Lead Security Officer: Marianela Odonnell Ph.D.; CLIA# [id number] Blood 06/19/2024 9:28 PM OFFICE ASSISTANCE 06/19/2024 11:01 PM OFFICE ASSISTANCE Narrative [facility] - 06/22/2024 10:25 AM OFFICE ASSISTANCE Please get level before lacosamide dose is given us Patricia Bryant MD LAB BLOOD ORDERABLES Final Res ult [facility] [place] [address] [place] [facility] * (ABNORMAL) CBC with auto differential (06/19/2024 9:28 PM OFFICE ASSISTANCE) WBC 7.1 3.8 - 9.9 K/cumm Hgb 12.5(L) 13.0 - 17.5 g/dL [facility] Hct 37.0(L) 38.9 - 50.3 % [facility] Plt 152 150 - 400 K/cumm [facility] MPV 12.6(H) 9.1 - 12.3 fL [facility] RBC 3.90(L) 4.30 - 5.80 M/cumm [facility] MCV 94.9 81.3 - 96.4 fL [facility] MCH 32.1 27.1 - 33.3 pg [facility] MCHC 33.8 32.3 - 35.7 g/dL [facility] RDW CV 13.4 11.1 - 14.9 % [facility] RDW SD 46.8 35.7 - 48.1 fL [facility] NRBC abs 0.00 0.00 - 0.01 K/cumm [facility] Blood 06/19/2024 9:28 PM OFFICE ASSISTANCE 06/19/2024 10:38 PM OFFICE ASSISTANCE Result [facility] Patricia Bryant MD LAB BLOOD ORDERABLES Final Res ult Performing Organization Address City/[facility]/ZIP Co de Phone Number [facility] [place] [address] * Valproic acid level, total (06/19/2024 9:28 PM OFFICE ASSISTANCE) [facility] Valproic Acid 76.0 50.0 - 100.0 mcg/mL Comment: Interpretive Data Therapeutic or toxic effects of anticonvulsant drugs may occur at different concentrations in different patients and the correlation between dose and clinical effect must be evaluated individually. Current interpretative data was last revised on 13. Blood 06/19/2024 9:28 PM OFFICE ASSISTANCE 06/19/2024 10:39 PM OFFICE ASSISTANCE Narrative [facility] - 06/19/2024 11:40 PM OFFICE ASSISTANCE Please get level before dose is given Patricia Bryant MD LAB BLOOD ORDERABLES Final Res ult Performing Organization Address City/[facility] Co de Phone Number [facility] [place] [address] * Respiratory pathogen panel Nasopharyngeal (06/19/2024 9:10 PM OFFICE ASSISTANCE) [facility] Influenza A RNA Not Detected Not Detected Influenza B RNA Not Detected Not Detected [facility] RSV RNA Not Detected Not Detected [facility] COVID-19 RNA Not Detected Not Detected [facility] Coronavirus 229E RNA Not Detected Not Detected [facility] Coronavirus HKU1 RNA Not Detected Not Detected [facility] Coronavirus NL63 RNA Not Detected Not Detected [facility] Coronavirus OC43 RNA Not Detected Not Detected [facility] Adenovirus DNA Not Detected Not Detected [facility] Metapneumovirus RNA Not Detected Not Detected [facility] Rhinovirus/Enterov irus RNA Not Detected Not Detected [facility] Parainfluenza 1 RNA Not Detected Not Detected [facility] Parainfluenza 2 RNA Not Detected Not Detected [facility] Parainfluenza 3 RNA Not Detected Not Detected [facility] Parainfluenza 4 RNA Not Detected Not Detected [facility] B. pertussis DNA Not Detected Not Detected [facility] B. parapertussis DNA Not Detected Not Detected [facility] C. pneumoniae DNA Not Detected Not Detected [facility] M. pneumoniae DNA Not Detected Not Detected [facility] Nasopharyngeal 06/19/2024 9: 10 PM OFFICE ASSISTANCE 06/19/2024 10:06 PM OFFICE ASSISTANCE Narrative [facility] - 06/19/2024 11:35 PM OFFICE ASSISTANCE Is the Patient experiencing symptoms consistent with COVID?->Yes Surveillance testing for transplant patient?->No Interpretive Data The [employer] FilmArray Respiratory Panel (RP2.1) assay is a [...] assay has FDA clearance for testing of TILE PICKER swabs. The performance of additional specimen types has been assessed by the performing laboratory. The performance characteristics of this assay have been determined by [facility]. Current interpretive data was last revised on 22. Patricia Bryant MD LAB MICROBIOLOGY - GENERAL ORD ERABLES Final Result [facility] [place] [address] * (ABNORMAL) Aerobic culture and gram stain Tracheal aspirate Tracheal (06/19/2024 6:53 PM OFFICE ASSISTANCE) Direct Specimen Exam Stain: Abundant polymorphonuclear leukocytes seen. Few squamous epithelial cells seen. Moderate mixed bacterial domenico seen on Gram stain. Report Final Report: Greater than or equal to 100,000 colonies/ml of Staphylococcus aureus Methicillin resistant (MRSA) by penicillin binding protein 2a (PBP2a) testing. Plus growth of clinically insignificant bacterial domenico. (.) [facility] Organism STAPHYLOCOCCUS AUREUS [facility] Organism PLUS GROWTH OF CLINICALLY INSIGNIFICANT DOMENICO. [facility] Tracheal aspirate (Tracheal) 06/19/2024 6:53 PM OFFICE ASSISTANCE 06/19/2024 8:18 PM OFFICE ASSISTANCE Narrative [facility] - 06/27/2024 2:52 PM OFFICE ASSISTANCE Testing performed by [facility] ([phone]) Specimens submitted from normally sterile body sites [...] - GENERAL ORD ERABLES Final Result [facility] [place] [address] * XR Chest 1 View (06/19/2024 6:47 PM OFFICE ASSISTANCE) Anatomical Region Laterality Modality Body, Chest N/A Digital Radiogra phy 06/20/2024 2:42 PM OFFICE ASSISTANCE Impressions 06/20/2024 3:15 PM OFFICE ASSISTANCE Comparison is made to 06/19/2024 at 3:32 [...] Herve Payne M.D. Narrative 06/20/2024 3:15 PM OFFICE ASSISTANCE EXAMINATION: 1 view chest radiograph Procedure Note [...] pathogen panel Tracheal aspirate (06/19/2024 6:46 PM OFFICE ASSISTANCE) Pathologist [facility] Influenza A RNA Not Detected Not Detected Influenza B RNA Not Detected Not Detected [facility] RSV RNA Not Detected Not Detected [facility] COVID-19 RNA Not Detected Not Detected [facility] Coronavirus 229E RNA Not Detected Not Detected [facility] Coronavirus HKU1 RNA Not Detected Not Detected [facility] Coronavirus NL63 RNA Not Detected Not Detected [facility] Coronavirus OC43 RNA Not Detected Not Detected [facility] Adenovirus DNA Not Detected Not Detected [facility] Metapneumovirus RNA Not Detected Not Detected [facility] Rhinovirus/Enterov irus RNA Not Detected Not Detected [facility] Parainfluenza 1 RNA Not Detected Not Detected [facility] Parainfluenza 2 RNA Not Detected Not Detected [facility] Parainfluenza 3 RNA Not Detected Not Detected [facility] Parainfluenza 4 RNA Not Detected Not Detected [facility] B. pertussis DNA Not Detected Not Detected [facility] B. parapertussis DNA Not Detected Not Detected [facility] C. pneumoniae DNA Not Detected Not Detected [facility] M. pneumoniae DNA Not Detected Not Detected [facility] Tracheal aspirate 06/19/2024 6:46 PM OFFICE ASSISTANCE 06/20/2024 7:55 AM OFFICE ASSISTANCE Narrative [facility] - 06/20/2024 8:58 AM OFFICE ASSISTANCE Is the Patient experiencing symptoms consistent with COVID?->Yes Surveillance testing for transplant patient?->No Interpretive Data The [employer] FilmArray Respiratory Panel (RP2.1) assay is a [...] assay has FDA clearance for testing of TILE PICKER swabs. The performance of additional specimen types has been assessed by the performing laboratory. The performance characteristics of this assay have been determined by [facility]. Current interpretive data was last revised on 22. us Patricia Bryant MD LAB MICROBIOLOGY - GENERAL ORD ERABLES Final Result [facility] [place] [address] * XR Abdomen Ap 1 Vw (06/19/2024 4:09 PM OFFICE ASSISTANCE) Anatomical Region Laterality Modality Body, Abdomen N/A Digital Radiogra phy 06/19/2024 4:35 PM OFFICE ASSISTANCE Impressions 06/19/2024 5:03 PM OFFICE ASSISTANCE Diffuse mild gaseous bowel distention, similar to the prior exam and could represent ileus. Partially imaged gastrostomy tube. Dictated by: Hunter Hernandez M.D. (R[place]an) The radiology attending physician has personally reviewed this study, and had reviewed and/or edited this written report and agrees with it. Electronically signed by: Lupillo Lugo M.D. Narrative 06/19/2024 5:03 PM OFFICE ASSISTANCE EXAMINATION: Abdomen, one view. HISTORY: Abdominal pain [...] XR Chest 1 View (06/19/2024 4:08 PM OFFICE ASSISTANCE) Anatomical Region Laterality Modality Body, Chest N/A Digital Radiogra phy 06/19/2024 4:21 PM OFFICE ASSISTANCE Impressions 06/19/2024 4:21 PM OFFICE ASSISTANCE The current study is compared with the [...] Elif Patel M.D. Narrative 06/19/2024 4:21 PM OFFICE ASSISTANCE EXAMINATION: 1 view chest radiograph Procedure Note [...] Final Result * eGFR (06/19/2024 2:47 PM OFFICE ASSISTANCE) eGFR >90 >=60 mL/min/1. 73 m2 Comment: [...] last reviewed 2021. Blood 06/19/2024 2:47 PM OFFICE ASSISTANCE 06/19/2024 3:03 PM OFFICE ASSISTANCE Patricia Bryant MD LAB BLOOD ORDERABLES Final Res ult [facility] [place] [address] * Differential, auto (06/19/2024 2:47 PM OFFICE ASSISTANCE) Neutrophil abs 5.5 1.5 - 6.5 K/cumm Imm gran abs 0.0 0.0 - 0.1 K/cumm [facility] Lymphocyte abs 0.9 0.8 - 3.3 K/cumm [facility] Monocyte abs 0.2 0.2 - 0.8 K/cumm [facility] Eosinophil abs 0.3 0.0 - 0.5 K/cumm [facility] Basophil abs 0.0 0.0 - 0.1 K/cumm [facility] Neutrophil pct 79.8 % [facility] Comment: Interpretive Data Percent cell count reference ranges are not reported, since discordance with absolute values may lead to misinterpretation of CBC data. Current Interpretive Data was last revised on 2017. Imm gran pct 0.4 % [facility] Comment: Interpretive Data Percent cell count reference ranges are not reported, since discordance with absolute values may lead to misinterpretation of CBC data. Current Interpretive Data was last revised on 2017. Lymphocyte pct 13.4 % [facility] Comment: Interpretive Data Percent cell count reference ranges are not reported, since discordance with absolute values may lead to misinterpretation of CBC data. Current Interpretive Data was last revised on 2017. Monocyte pct 2.5 % [facility] Comment: Interpretive Data Percent cell count reference ranges are not reported, since discordance with absolute values may lead to misinterpretation of CBC data. Current Interpretive Data was last revised on 2017. Eosinophil pct 3.8 % [facility] Comment: Interpretive Data Percent cell count reference ranges are not reported, since discordance with absolute values may lead to misinterpretation of CBC data. Current Interpretive Data was last revised on 2017. Basophil pct 0.1 % [facility] Comment: Interpretive Data Percent cell count reference ranges are not reported, since discordance with absolute values may lead to misinterpretation of CBC data. Current Interpretive Data was last revised on 2017. Blood 06/19/2024 2:47 PM OFFICE ASSISTANCE 06/19/2024 3:04 PM OFFICE ASSISTANCE us Patricia Bryant MD LAB BLOOD ORDERABLES Final Res ult [facility] [place] [address] * (ABNORMAL) CBC with auto differential (06/19/2024 2:47 PM OFFICE ASSISTANCE) [facility] WBC 6.9 3.8 - 9.9 K/cumm Hgb 14.2 13.0 - 17.5 g/dL [facility] Hct 42.4 38.9 - 50.3 % [facility] Plt 135(L) 150 - 400 K/cumm [facility] MPV 12.6(H) 9.1 - 12.3 fL [facility] RBC 4.47 4.30 - 5.80 M/cumm [facility] MCV 94.9 81.3 - 96.4 fL [facility] MCH 31.8 27.1 - 33.3 pg [facility] MCHC 33.5 32.3 - 35.7 g/dL [facility] RDW CV 13.2 11.1 - 14.9 % [facility] RDW SD 46.5 35.7 - 48.1 fL [facility] NRBC abs 0.00 0.00 - 0.01 K/cumm [facility] Blood 06/19/2024 2:47 PM OFFICE ASSISTANCE 06/19/2024 3:04 PM OFFICE ASSISTANCE Patricia Bryant MD LAB BLOOD ORDERABLES Final Res ult Performing Organization Address City/[facility] Co de Phone Number [facility] [place] [address] * (ABNORMAL) Phosphorus (06/19/2024 2:47 PM OFFICE ASSISTANCE) [facility] Phosphorus, pl 2.2(L) 2.3 - 4.5 mg/dL Blood 06/19/2024 2:47 PM OFFICE ASSISTANCE 06/19/2024 3:03 PM OFFICE ASSISTANCE Patricia Bryant MD LAB BLOOD ORDERABLES Final Res ult [facility] [place] [address] * Magnesium (06/19/2024 2:47 PM OFFICE ASSISTANCE) Pathologist [facility] Magnesium 2.0 1.4 - 2.5 mg/dL Blood 06/19/2024 2:47 PM OFFICE ASSISTANCE 06/19/2024 3:03 PM OFFICE ASSISTANCE Patricia Bryant MD LAB BLOOD ORDERABLES Final Res ult [facility] Department [place] [address] * (ABNORMAL) Comprehensive metabolic panel (06/19/2024 2:47 PM OFFICE ASSISTANCE) Pathologist [facility] Sodium 144 135 - 145 mmol/L Potassium, pl 3.9 3.3 - 4.9 mmol/L [facility] Comment:Hemolyzed; Potassium value may be falsely elevated by as much as 0.3-0.5 mmol/L. Suggest redraw and reanalysis. Chloride 105 97 - 110 mmol/L [facility] CO2 29 22 - 32 mmol/L [facility] Anion gap 10 2 - 15 mmol/L [facility] BUN 7 6 - 25 mg/dL [facility] Creatinine 0.62(L) 0.80 - 1.30 mg/dL [facility] Glucose 113 70 - 199 mg/dL [facility] Comment: Interpretive Data Fasting glucose >/= [...] 2022. Calcium 9.5 8.5 - 10.3 mg/dL [facility] Bilirubin, total 0.2 0.1 - 1.2 mg/dL [facility] Protein, pl 7.2 6.5 - 8.5 g/dL [facility] Albumin 3.7 3.5 - 5.0 g/dL [facility] Alk phos 91 40 - 130 Units/L [facility] ALT 13 7 - 55 Units/L [facility] AST 28 10 - 50 Units/L [facility] Comment:Hemolyzed; result ma y be falsely elevated Blood 06/19/2024 2:47 PM OFFICE ASSISTANCE 06/19/2024 3:03 PM OFFICE ASSISTANCE Patricia Bryant MD LAB BLOOD ORDERABLES Final Res ult Performing Organization Address [facility]/ZIP Co de Phone Number [facility] [place] [address] * POCT glucose (06/19/2024 2:25 PM OFFICE ASSISTANCE) Glucose, POC 125 70 - 199 mg/dL Blood 06/19/2024 2:25 PM OFFICE ASSISTANCE 06/19/2024 2:25 PM OFFICE ASSISTANCE Patricia Bryant MD LAB POCT ORDERABLES - DEVICE F inal Result Performing Organization Address [facility] Co de Phone Number [facility] Department [place] [address] * XR Abdomen Ap 1 Vw (06/16/2024 6:16 PM OFFICE ASSISTANCE) Anatomical Region Laterality Modality Body, Abdomen N/A Computed Radiogr aphy 06/16/2024 6:56 PM OFFICE ASSISTANCE Impressions 06/16/2024 6:56 PM OFFICE ASSISTANCE Gastrostomy tube is present. Aerated bowel seen throughout the abdomen. The gaseous distention is improved from the prior examination. Distal rectal air is not definitively visualized. No pneumoperitoneum. Electronically signed by: Sekou Wolf M.D. Narrative 06/16/2024 6:56 PM OFFICE ASSISTANCE EXAMINATION: Abdomen, one view. HISTORY: Abdominal distension. [...] Res ult * eGFR (06/16/2024 12:42 PM OFFICE ASSISTANCE) eGFR >90 >=60 mL/min/1. 73 m2 Comment: [...] reviewed 2021. Blood 06/16/2024 12:4 2 PM OFFICE ASSISTANCE 06/16/2024 12:49 PM OFFICE ASSISTANCE Misael Felix MD LAB BLOOD ORDERABLES Final Result [facility] [place] [address] * Differential, auto (06/16/2024 12:42 PM OFFICE ASSISTANCE) Neutrophil abs 2.5 1.5 - 6.5 K/cumm Imm gran abs 0.0 0.0 - 0.1 K/cumm [facility] Lymphocyte abs 2.4 0.8 - 3.3 K/cumm [facility] Monocyte abs 0.4 0.2 - 0.8 K/cumm [facility] Eosinophil abs 0.4 0.0 - 0.5 K/cumm [facility] Basophil abs 0.0 0.0 - 0.1 K/cumm [facility] Neutrophil pct 42.8 % [facility] Comment: Interpretive Data Percent cell count reference ranges are not reported, since discordance with absolute values may lead to misinterpretation of CBC data. Current Interpretive Data was last revised on 2017. Imm gran pct 0.2 % [facility] Comment: Interpretive Data Percent cell count reference ranges are not reported, since discordance with absolute values may lead to misinterpretation of CBC data. Current Interpretive Data was last revised on 2017. Lymphocyte pct 42.2 % [facility] Comment: Interpretive Data Percent cell count reference ranges are not reported, since discordance with absolute values may lead to misinterpretation of CBC data. Current Interpretive Data was last revised on 2017. Monocyte pct 6.7 % [facility] Comment: Interpretive Data Percent cell count reference ranges are not reported, since discordance with absolute values may lead to misinterpretation of CBC data. Current Interpretive Data was last revised on 2017. Eosinophil pct 7.7 % [facility] Comment: Interpretive Data Percent cell count reference ranges are not reported, since discordance with absolute values may lead to misinterpretation of CBC data. Current Interpretive Data was last revised on 2017. Basophil pct 0.4 % [facility] Comment: Interpretive Data Percent cell count reference ranges are not reported, since discordance with absolute values may lead to misinterpretation of CBC data. Current Interpretive Data was last revised on 2017. Blood 06/16/2024 12:4 2 PM OFFICE ASSISTANCE 06/16/2024 12:49 PM OFFICE ASSISTANCE Misael Felix MD LAB BLOOD ORDERABLES Final Result Performing Organization Address [facility] de Phone Number [facility] Department [place] [address] * (ABNORMAL) CBC with auto differential (06/16/2024 12:42 PM OFFICE ASSISTANCE) Pathologist [facility] WBC 5.7 3.8 - 9.9 K/cumm Hgb 12.2(L) 13.0 - 17.5 g/dL [facility] Hct 36.6(L) 38.9 - 50.3 % [facility] Plt 156 150 - 400 K/cumm [facility] MPV 12.6(H) 9.1 - 12.3 fL [facility] RBC 3.85(L) 4.30 - 5.80 M/cumm [facility] MCV 95.1 81.3 - 96.4 fL [facility] MCH 31.7 27.1 - 33.3 pg [facility] MCHC 33.3 32.3 - 35.7 g/dL [facility] RDW CV 13.0 11.1 - 14.9 % [facility] RDW SD 45.1 35.7 - 48.1 fL [facility] NRBC abs 0.00 0.00 - 0.01 K/cumm [facility] Blood 06/16/2024 12:4 2 PM OFFICE ASSISTANCE 06/16/2024 12:49 PM OFFICE ASSISTANCE Misael Felix MD LAB BLOOD ORDERABLES Final Result Performing Organization Address [facility] Co de Phone Number [facility] Department [place] [address] * Phosphorus (06/16/2024 12:42 PM OFFICE ASSISTANCE) Pathologist [facility] Phosphorus, pl 2.5 2.3 - 4.5 mg/dL Blood 06/16/2024 12:4 2 PM OFFICE ASSISTANCE 06/16/2024 12:49 PM OFFICE ASSISTANCE Misael Felix MD LAB BLOOD ORDERABLES Final Result [facility] [place] [address] * Magnesium (06/16/2024 12:42 PM OFFICE ASSISTANCE) [facility] Magnesium 2.0 1.4 - 2.5 mg/dL Blood 06/16/2024 12:4 2 PM OFFICE ASSISTANCE 06/16/2024 12:49 PM OFFICE ASSISTANCE Misael Felix MD LAB BLOOD ORDERABLES Final Result Performing Organization Address [facility] Co de Phone Number [facility] Department [place] [address] * (ABNORMAL) Comprehensive metabolic panel (06/16/2024 12:42 PM OFFICE ASSISTANCE) [facility] Sodium 143 135 - 145 mmol/L Potassium, pl 3.5 3.3 - 4.9 mmol/L [facility] Chloride 111(H) 97 - 110 mmol/L [facility] CO2 26 22 - 32 mmol/L [facility] Anion gap 6 2 - 15 mmol/L [facility] BUN 6 6 - 25 mg/dL [facility] Creatinine 0.56(L) 0.80 - 1.30 mg/dL [facility] Glucose 94 70 - 199 mg/dL [facility] Comment: Interpretive Data Fasting glucose >/= [...] 2022. Calcium 8.9 8.5 - 10.3 mg/dL [facility] Bilirubin, total 0.4 0.1 - 1.2 mg/dL [facility] Protein, pl 6.3(L) 6.5 - 8.5 g/dL [facility] Albumin 3.3(L) 3.5 - 5.0 g/dL [facility] Alk phos 79 40 - 130 Units/L [facility] ALT 10 7 - 55 Units/L [facility] AST 18 10 - 50 Units/L [facility] Blood 06/16/2024 12:4 2 PM OFFICE ASSISTANCE 06/16/2024 12:49 PM OFFICE ASSISTANCE us Misael Felix MD LAB BLOOD ORDERABLES Final Result [facility] [place] [address] * XR Abdomen Ap 1 Vw (06/15/2024 1:57 AM OFFICE ASSISTANCE) Anatomical Region Laterality Modality Body, Abdomen N/A Computed Radiogr aphy 06/15/2024 3:15 PM OFFICE ASSISTANCE Impressions 06/15/2024 4:44 PM OFFICE ASSISTANCE There is a gastrostomy tube with tip [...] Sean Angel M.D. Narrative 06/15/2024 4:44 PM OFFICE ASSISTANCE EXAMINATION: Abdomen, one view. HISTORY: Abdominal distension. [...] Res ult * eGFR (06/13/2024 4:59 AM OFFICE ASSISTANCE) eGFR >90 >=60 mL/min/1. 73 m2 Comment: [...] last reviewed 2021. Blood 06/13/2024 4:59 AM OFFICE ASSISTANCE 06/13/2024 5:38 AM OFFICE ASSISTANCE us Ryan Jauregui MD LAB BLOOD ORDERABLES Final Resul t [facility] Department [place] [address] * (ABNORMAL) Differential, auto (06/13/2024 4:59 AM OFFICE ASSISTANCE) Neutrophil abs 10.3(H) 1.5 - 6.5 K/cumm Imm gran abs 0.1 0.0 - 0.1 K/cumm [facility] Lymphocyte abs 3.0 0.8 - 3.3 K/cumm [facility] Monocyte abs 0.9(H) 0.2 - 0.8 K/cumm [facility] Eosinophil abs 0.2 0.0 - 0.5 K/cumm [facility] Basophil abs 0.0 0.0 - 0.1 K/cumm [facility] Neutrophil pct 70.9 % [facility] Comment: Interpretive Data Percent cell count reference ranges are not reported, since discordance with absolute values may lead to misinterpretation of CBC data. Current Interpretive Data was last revised on 2017. Imm gran pct 0.4 % [facility] Comment: Interpretive Data Percent cell count reference ranges are not reported, since discordance with absolute values may lead to misinterpretation of CBC data. Current Interpretive Data was last revised on 2017. Lymphocyte pct 20.7 % [facility] Comment: Interpretive Data Percent cell count reference ranges are not reported, since discordance with absolute values may lead to misinterpretation of CBC data. Current Interpretive Data was last revised on 2017. Monocyte pct 6.5 % [facility] Comment: Interpretive Data Percent cell count reference ranges are not reported, since discordance with absolute values may lead to misinterpretation of CBC data. Current Interpretive Data was last revised on 2017. Eosinophil pct 1.4 % [facility] Comment: Interpretive Data Percent cell count reference ranges are not reported, since discordance with absolute values may lead to misinterpretation of CBC data. Current Interpretive Data was last revised on 2017. Basophil pct 0.1 % [facility] Comment: Interpretive Data Percent cell count reference ranges are not reported, since discordance with absolute values may lead to misinterpretation of CBC data. Current Interpretive Data was last revised on 2017. Blood 06/13/2024 4:59 AM OFFICE ASSISTANCE 06/13/2024 5:38 AM OFFICE ASSISTANCE us Ryan Jauregui MD LAB BLOOD ORDERABLES Final Resul t [facility] [place] [address] * Lacosamide level (06/13/2024 4:59 AM OFFICE ASSISTANCE) Pathologist [facility] Lacosamide 1.4 1.0 - 10.0 mcg/mL [facility] Comment: ADDITIONAL INFORMATION This test was developed and its performance characteristics determined by [facility] in a manner consistent with CLIA requirements. This test has not been cleared or approved by the U.S. Food and Drug Administration. Test Performed by: [facility] - [facility] [address] [place] [address] Lead Security Officer: Marianela Odonnell Ph.D.; CLIA# [id number] Blood 06/13/2024 4:59 AM OFFICE ASSISTANCE 06/13/2024 5:38 AM OFFICE ASSISTANCE Ryan Jauregui MD LAB BLOOD ORDERABLES Final Resul t [facility] Department [place] [address] [facility] * (ABNORMAL) CBC with auto differential (06/13/2024 4:59 AM OFFICE ASSISTANCE) [facility] WBC 14.6(H) 3.8 - 9.9 K/cumm Hgb 13.2 13.0 - 17.5 g/dL [facility] Hct 39.7 38.9 - 50.3 % [facility] Plt 155 150 - 400 K/cumm [facility] MPV 12.4(H) 9.1 - 12.3 fL [facility] RBC 4.03(L) 4.30 - 5.80 M/cumm [facility] MCV 98.5(H) 81.3 - 96.4 fL [facility] MCH 32.8 27.1 - 33.3 pg [facility] MCHC 33.2 32.3 - 35.7 g/dL [facility] RDW CV 13.6 11.1 - 14.9 % [facility] RDW SD 50.2(H) 35.7 - 48.1 fL [facility] NRBC abs 0.00 0.00 - 0.01 K/cumm [facility] Blood 06/13/2024 4:59 AM OFFICE ASSISTANCE 06/13/2024 5:38 AM OFFICE ASSISTANCE Ryan Jauregui MD LAB BLOOD ORDERABLES Final Resul t [facility] [place] [address] * Blood culture Blood (06/13/2024 4:59 AM OFFICE ASSISTANCE) Report Final Report: No growth Blood 06/13/2024 4:59 AM OFFICE ASSISTANCE 06/13/2024 6:21 AM OFFICE ASSISTANCE Narrative [facility] - 06/17/2024 7:00 AM OFFICE ASSISTANCE From a different site than #1. Collection->Peripheral [...] performance characteristics have been verified by the [facility]. For questions about this culture, contact the Microbiology Laboratory at [phone]. Interpretive data was last revised on 24. us Ryan Jauregui MD LAB MICROBIOLOGY - GENERAL ORDER NICHOLE Final Result Performing Organization Address [facility] de Phone Number [facility] [place] [address] * Phosphorus (06/13/2024 4:59 AM OFFICE ASSISTANCE) Phosphorus, pl 3.0 2.3 - 4.5 mg/dL Blood 06/13/2024 4:59 AM OFFICE ASSISTANCE 06/13/2024 5:38 AM OFFICE ASSISTANCE us Ryan Jauregui MD LAB BLOOD ORDERABLES Final Resul t Performing Organization Address [facility] de Phone Number [facility] [place] [address] * Magnesium (06/13/2024 4:59 AM OFFICE ASSISTANCE) Magnesium 1.9 1.4 - 2.5 mg/dL Blood 06/13/2024 4:59 AM OFFICE ASSISTANCE 06/13/2024 5:38 AM OFFICE ASSISTANCE us Ryan Jauregui MD LAB BLOOD ORDERABLES Final Resul t Performing Organization Address [facility] de Phone Number [facility] [place] [address] * (ABNORMAL) Valproic acid level, total (06/13/2024 4:59 AM OFFICE ASSISTANCE) Valproic Acid 48.0(L) 50.0 - 100.0 mcg/mL Comment: Interpretive Data Therapeutic or toxic effects of anticonvulsant drugs may occur at different concentrations in different patients and the correlation between dose and clinical effect must be evaluated individually. Current interpretative data was last revised on 13. Blood 06/13/2024 4:59 AM OFFICE ASSISTANCE 06/13/2024 5:38 AM OFFICE ASSISTANCE us Ryan Jauregui MD LAB BLOOD ORDERABLES Final Resul t Performing Organization Address City/[facility]/ZIP Co de Phone Number [facility] [place] [address] * (ABNORMAL) Comprehensive metabolic panel (06/13/2024 4:59 AM OFFICE ASSISTANCE) Sodium 141 135 - 145 mmol/L Potassium, pl 3.9 3.3 - 4.9 mmol/L [facility] Chloride 106 97 - 110 mmol/L [facility] CO2 28 22 - 32 mmol/L [facility] Anion gap 7 2 - 15 mmol/L [facility] BUN 8 6 - 25 mg/dL [facility] Creatinine 0.54(L) 0.80 - 1.30 mg/dL [facility] Glucose 103 70 - 199 mg/dL [facility] Comment: Interpretive Data Fasting glucose >/= [...] 2022. Calcium 9.5 8.5 - 10.3 mg/dL [facility] Bilirubin, total 0.5 0.1 - 1.2 mg/dL [facility] Protein, pl 7.1 6.5 - 8.5 g/dL [facility] Albumin 3.7 3.5 - 5.0 g/dL [facility] Alk phos 96 40 - 130 Units/L [facility] ALT 17 7 - 55 Units/L [facility] AST 22 10 - 50 Units/L [facility] Blood 06/13/2024 4:59 AM OFFICE ASSISTANCE 06/13/2024 5:38 AM OFFICE ASSISTANCE Ryan Jauregui MD LAB BLOOD ORDERABLES Final Resul t [facility] [place] [address] * TSH (06/12/2024 3:51 PM OFFICE ASSISTANCE) [facility] Thyroid Stimulating Hormone 2.58 0.30 - 4.20 mcIUnit/mL Blood 06/12/2024 3:51 PM OFFICE ASSISTANCE 06/12/2024 5:05 PM OFFICE ASSISTANCE us Ryan Jauregui MD LAB BLOOD ORDERABLES Final Resul t [facility] [place] [address] * (ABNORMAL) Differential, auto (06/12/2024 3:30 PM OFFICE ASSISTANCE) [facility] Neutrophil abs 9.5(H) 1.5 - 6.5 K/cumm Imm gran abs 0.0 0.0 - 0.1 K/cumm [facility] Lymphocyte abs 2.3 0.8 - 3.3 K/cumm [facility] Monocyte abs 1.1(H) 0.2 - 0.8 K/cumm [facility] Eosinophil abs 0.2 0.0 - 0.5 K/cumm [facility] Basophil abs 0.0 0.0 - 0.1 K/cumm [facility] Neutrophil pct 72.4 % [facility] Comment: Interpretive Data Percent cell count reference ranges are not reported, since discordance with absolute values may lead to misinterpretation of CBC data. Current Interpretive Data was last revised on 2017. Imm gran pct 0.2 % [facility] Comment: Interpretive Data Percent cell count reference ranges are not reported, since discordance with absolute values may lead to misinterpretation of CBC data. Current Interpretive Data was last revised on 2017. Lymphocyte pct 17.4 % [facility] Comment: Interpretive Data Percent cell count reference ranges are not reported, since discordance with absolute values may lead to misinterpretation of CBC data. Current Interpretive Data was last revised on 2017. Monocyte pct 8.3 % [facility] Comment: Interpretive Data Percent cell count reference ranges are not reported, since discordance with absolute values may lead to misinterpretation of CBC data. Current Interpretive Data was last revised on 2017. Eosinophil pct 1.5 % [facility] Comment: Interpretive Data Percent cell count reference ranges are not reported, since discordance with absolute values may lead to misinterpretation of CBC data. Current Interpretive Data was last revised on 2017. Basophil pct 0.2 % [facility] Comment: Interpretive Data Percent cell count reference ranges are not reported, since discordance with absolute values may lead to misinterpretation of CBC data. Current Interpretive Data was last revised on 2017. Blood 06/12/2024 3:30 PM OFFICE ASSISTANCE 06/12/2024 5:10 PM OFFICE ASSISTANCE us Ryan Jauregui MD LAB BLOOD ORDERABLES Final Resul t [facility] Department [place] [address] * (ABNORMAL) CBC with auto differential (06/12/2024 3:30 PM OFFICE ASSISTANCE) WBC 13.3(H) 3.8 - 9.9 K/cumm Hgb 13.7 13.0 - 17.5 g/dL [facility] Hct 41.5 38.9 - 50.3 % [facility] Plt 162 150 - 400 K/cumm [facility] MPV 13.6(H) 9.1 - 12.3 fL [facility] RBC 4.27(L) 4.30 - 5.80 M/cumm [facility] MCV 97.2(H) 81.3 - 96.4 fL [facility] MCH 32.1 27.1 - 33.3 pg [facility] MCHC 33.0 32.3 - 35.7 g/dL [facility] RDW CV 13.7 11.1 - 14.9 % [facility] RDW SD 48.8(H) 35.7 - 48.1 fL [facility] NRBC abs 0.00 0.00 - 0.01 K/cumm [facility] Blood 06/12/2024 3:30 PM OFFICE ASSISTANCE 06/12/2024 5:10 PM OFFICE ASSISTANCE Result [facility] Ryan Jauregui MD LAB BLOOD ORDERABLES Final Resul t Performing Organization Address [facility] de Phone Number [facility] [place] [address] * Hemoglobin A1c (06/12/2024 3:30 PM OFFICE ASSISTANCE) [facility] Hgb A1C 4.9 4.0 - 5.6 % Estimated Average Glucose 94 mg/dL [facility] Comment: The ADA recommends reporting an estimated Average Glucose (eAG) with all Hemoglobin A1c results using the equation derived from a study of 507 normal and diabetic adults. Minority populations were underrepresented and children were not included. (Diabetes Care 2020; 43(S1): S66-S76). The eAG is not equivalent to a fasting glucose. Blood 06/12/2024 3:30 PM OFFICE ASSISTANCE 06/12/2024 5:10 PM OFFICE ASSISTANCE Result [facility] Ryan Jauregui MD LAB BLOOD ORDERABLES Final Resul t Performing Organization Address [facility] de Phone Number [facility] [place] [address] * Troponin I high-sensitivity 4-hour (06/12/2024 3:27 PM OFFICE ASSISTANCE) Pathologist [facility] Trop I hs 10 <=35 ng/L Comment: Interpretive Data For further hscTnI resources including the diagnostic algorithm and an aid in interpretation, copy and paste this link: https://bjhlab.testcatalog.org/show/hsTrop-[email or web address] Current Interpretive Data last revised 2019. Trop I hs delta 1 ng/L [facility] Trop I hs interp Insignificant [facility] Blood 06/12/2024 3:27 PM OFFICE ASSISTANCE 06/12/2024 5:06 PM OFFICE ASSISTANCE Shakila Jung MD LAB BLOOD ORDERABL ES Final Result [facility] Department [place] [address] * XR Chest 1 Vw Portable (06/12/2024 2:47 PM OFFICE ASSISTANCE) Anatomical Region Laterality Modality Body, Chest N/A Computed Radiogr aphy 06/12/2024 2:51 PM OFFICE ASSISTANCE Impressions 06/12/2024 2:51 PM OFFICE ASSISTANCE Comparison to 10/07/2021. Tracheostomy device in place. Small lung volumes with bibasilar atelectasis. No pneumothorax or focal consolidation. Unchanged cardiomediastinal silhouette, accounting for differences volumes. Small left pleural effusion. No right pleural effusion. Electronically signed by: Raul Whitfield M.D. Narrative 06/12/2024 2:51 PM OFFICE ASSISTANCE EXAMINATION: 1 view chest radiograph Procedure Note [...] Urine, in and out catheter (06/12/2024 2:38PM OFFICE ASSISTANCE) Color, ur Straw Yellow Clarity, ur Clear Clear [facility] Specific gravity, ur >1.042(H) 1.003 - 1.030 [facility] pH, urine 8.5 [facility] Comment: Interpretive Data U rine pH is affected by diet, medications, systemic acid-base disturbances, and renal tubular function. pH may affect urinary stone formation. For example, urine pH below 6.0 may help reduce the tendency for calcium phosphate stones and pH greater than 6.0 may reduce the tendency for uric acid stone formation. Source: [facility] Current Interpretive Data was last revised on 2017 Protein, ur ql Trace Negative [facility] Glucose, ur ql Negative Negative [facility] Ketones, ur Negative Negative [facility] Bilirubin, ur Negative Negative [facility] Blood, ur Negative Negative [facility] Urobilinogen, ur 2.0(A) <2.0 mg/dL [facility] Nitrite, ur Negative Negative [facility] Leukocyte esterase, ur Negative Negative [facility] UA reflex comment Reflex conditions for microscopic UA and culture not met. [facility] Urine, in and out catheter 06/12/2024 2:38 PM OFFICE ASSISTANCE 06/12/2024 3:47 PM OFFICE ASSISTANCE us Shakila Jung MD LAB MICROBIOLOGY - GENERAL ORDERABLES Final Result [facility] Department [place] [address] * (ABNORMAL) Differential, auto (06/12/2024 2:23 PM OFFICE ASSISTANCE) Neutrophil abs 9.9(H) 1.5 - 6.5 K/cumm Imm gran abs 0.1 0.0 - 0.1 K/cumm [facility] Lymphocyte abs 2.5 0.8 - 3.3 K/cumm [facility] Monocyte abs 1.0(H) 0.2 - 0.8 K/cumm [facility] Eosinophil abs 0.2 0.0 - 0.5 K/cumm [facility] Basophil abs 0.0 0.0 - 0.1 K/cumm [facility] Neutrophil pct 72.4 % [facility] Comment: Interpretive Data Percent cell count reference ranges are not reported, since discordance with absolute values may lead to misinterpretation of CBC data. Current Interpretive Data was last revised on 2017. Imm gran pct 0.4 % [facility] Comment: Interpretive Data Percent cell count reference ranges are not reported, since discordance with absolute values may lead to misinterpretation of CBC data. Current Interpretive Data was last revised on 2017. Lymphocyte pct 18.4 % [facility] Comment: Interpretive Data Percent cell count reference ranges are not reported, since discordance with absolute values may lead to misinterpretation of CBC data. Current Interpretive Data was last revised on 2017. Monocyte pct 7.2 % [facility] Comment: Interpretive Data Percent cell count reference ranges are not reported, since discordance with absolute values may lead to misinterpretation of CBC data. Current Interpretive Data was last revised on 2017. Eosinophil pct 1.5 % [facility] Comment: Interpretive Data Percent cell count reference ranges are not reported, since discordance with absolute values may lead to misinterpretation of CBC data. Current Interpretive Data was last revised on 2017. Basophil pct 0.1 % [facility] Comment: Interpretive Data Percent cell count reference ranges are not reported, since discordance with absolute values may lead to misinterpretation of CBC data. Current Interpretive Data was last revised on 2017. Blood 06/12/2024 2:23 PM OFFICE ASSISTANCE 06/12/2024 4:04 PM OFFICE ASSISTANCE us Shakila Jung MD LAB BLOOD ORDERABL ES Final Result [facility] [place] [address] * (ABNORMAL) CBC with auto differential (06/12/2024 2:23 PM OFFICE ASSISTANCE) WBC 13.7(H) 3.8 - 9.9 K/cumm Hgb 14.1 13.0 - 17.5 g/dL [facility] Hct 42.0 38.9 - 50.3 % [facility] Plt 171 150 - 400 K/cumm [facility] MPV 13.2(H) 9.1 - 12.3 fL [facility] RBC 4.36 4.30 - 5.80 M/cumm [facility] MCV 96.3 81.3 - 96.4 fL [facility] MCH 32.3 27.1 - 33.3 pg [facility] MCHC 33.6 32.3 - 35.7 g/dL [facility] RDW CV 13.5 11.1 - 14.9 % [facility] RDW SD 48.5(H) 35.7 - 48.1 fL [facility] NRBC abs 0.00 0.00 - 0.01 K/cumm [facility] Blood 06/12/2024 2:23 PM OFFICE ASSISTANCE 06/12/2024 4:04 PM OFFICE ASSISTANCE Shakila Jung MD LAB BLOOD ORDERABL ES Final Result Performing Organization Address [facility] de Phone Number [facility] [place] [address] * Troponin I high-sensitivity 2-hour (06/12/2024 1:56 PM OFFICE ASSISTANCE) Trop I hs 10 <=35 ng/L Comment: Interpretive Data For further hscTnI resources including the diagnostic algorithm and an aid in interpretation, copy and paste this link: https://bjhlab.testcatalog.org/show/[email or web address] Current Interpretive Data last revised 2019. Trop I hs delta 1 ng/L [facility] Trop I hs interp Insignificant [facility] Blood 06/12/2024 1:56 PM OFFICE ASSISTANCE 06/12/2024 2:22 PM OFFICE ASSISTANCE Shakila Jung MD LAB BLOOD ORDERABL ES Final Result Performing Organization Address [facility]/ZIP Co de Phone Number [facility] [place] [address] * CT Abdomen Pelvis W Contrast (06/12/2024 12:22 PM OFFICE ASSISTANCE) Anatomical Region Laterality Modality Body N/A Computed Tomogra phy 06/12/2024 12:4 9 PM OFFICE ASSISTANCE Impressions 06/12/2024 12:49 PM OFFICE ASSISTANCE No acute findings in the abdomen/pelvis. Specifically, no bowel obstruction. Electronically signed by: Raul Whitfield M.D. Narrative 06/12/2024 12:49 PM OFFICE ASSISTANCE EXAMINATION: Computed tomography of the abdomen and [...] ED PERIPHERAL LINE INSERTION (06/12/2024 11:50 AM OFFICE ASSISTANCE) Narrative Shakila Jung MD - 06/12/2024 11:50 AM OFFICE ASSISTANCE Shakila Jung MD 06/12/2024 11:50 AM Peripheral [...] and COVID-19 PCR Nasopharyngeal (06/12/2024 11:39 AM OFFICE ASSISTANCE) [facility] COVID-19 RNA Negative Negative [facility] Influenza A RNA Negative Negative [facility] Influenza B RNA Negative Negative [facility] RSV RNA Negative Negative [facility] Comment: Interpretive data: Testing performed by [facility] ([phone]). This test is performed using the [employer] Xpert Xpress CoV-2/Flu/RSV plus assay. This is a multiplex, real-time reverse transcriptase PCR assay intended for the qualitative detection of nucleic acid from SARS-CoV-2, influenza A, influenza B, and respiratory syncytial virus. This assay has been cleared by the [place] Food and Drug administration. The performance characteristics have been verified by the [facility]. Results must be considered in the clinical context, and a negative result does not rule out infection. Interpretive Data last revised 2023 Nasopharyngeal 06/12/2024 11 :39 AM OFFICE ASSISTANCE 06/12/2024 12:55 PM OFFICE ASSISTANCE Narrative [facility] - 06/12/2024 1:39 PM OFFICE ASSISTANCE Is the Patient experiencing symptoms consistent with COVID?->Unknown Result [facility] Shakila Jung MD LAB MICROBIOLOGY - GENERAL ORDERABLES Final Result Performing Organization Address [facility] Co de Phone Number [facility] [place] [address] [facility] * POCT creatinine (06/12/2024 11:29 AM OFFICE ASSISTANCE) Pathologist [facility] Creatinine POC 0.7 0.7 - 1.3 mg/dL Blood 06/12/2024 11:2 9 AM OFFICE ASSISTANCE 06/12/2024 11:29 AM OFFICE ASSISTANCE Result [facility] Shakila Jung MD LAB POCT ORDERABLE S - DEVICE Final Result Performing Organization Address [facility] de Phone Number [facility] [place] [address] * Troponin I high-sensitivity series (baseline, 2hr, 4hr, 6hr) (06/12/2024 11:22 AM OFFICE ASSISTANCE) Pathologist [facility] Trop I hs 9 <=35 ng/L Comment: Interpretive Data For further hscTnI resources including the diagnostic algorithm and an aid in interpretation, copy and paste this link: https://bjhlab.testcatalog.org/show/[email or web address] Current Interpretive Data last revised 2019. Blood 06/12/2024 11:2 2 AM OFFICE ASSISTANCE 06/12/2024 1:06 PM OFFICE ASSISTANCE Shakila Jung MD LAB BLOOD ORDERABL ES Final Result Performing Organization Address [facility] Co de Phone Number [facility] [place] [address] * eGFR (06/12/2024 11:22 AM OFFICE ASSISTANCE) Pathologist [facility] eGFR >90 >=60 mL/min/1. 73 m2 Comment: [...] reviewed 2021. Blood 06/12/2024 11:2 2 AM OFFICE ASSISTANCE 06/12/2024 1:07 PM OFFICE ASSISTANCE us Shakila Jung MD LAB BLOOD ORDERABL ES Final Result [facility] [place] [address] * Differential, auto (06/12/2024 11:22 AM OFFICE ASSISTANCE) [facility] Neutrophil abs See Comment 1.5 - 6.5 Comment:Credited, specimen c lotted. Imm gran abs See Comment 0.0 - 0.1 [facility] Comment:Credited, specimen c lotted. Lymphocyte abs See Comment 0.8 - 3.3 [facility] Comment:Credited, specimen c lotted. Monocyte abs See Comment 0.2 - 0.8 [facility] Comment:Credited, specimen c lotted. Eosinophil abs See Comment 0.0 - 0.5 [facility] Comment:Credited, specimen c lotted. Basophil abs See Comment 0.0 - 0.1 [facility] Comment:Credited, specimen c lotted. Neutrophil pct See Comment [facility] Comment: Credited, specimen clotted. Interpretive Data Percent cell count reference ranges are not reported, since discordance with absolute values may lead to misinterpretation of CBC data. Current Interpretive Data was last revised on 2017. Imm gran pct See Comment [facility] Comment: Credited, specimen clotted. Interpretive Data Percent cell count reference ranges are not reported, since discordance with absolute values may lead to misinterpretation of CBC data. Current Interpretive Data was last revised on 2017. Lymphocyte pct See Comment [facility] Comment: Credited, specimen clotted. Interpretive Data Percent cell count reference ranges are not reported, since discordance with absolute values may lead to misinterpretation of CBC data. Current Interpretive Data was last revised on 2017. Monocyte pct See Comment [facility] Comment: Credited, specimen clotted. Interpretive Data Percent cell count reference ranges are not reported, since discordance with absolute values may lead to misinterpretation of CBC data. Current Interpretive Data was last revised on 2017. Eosinophil pct See Comment [facility] Comment: Credited, specimen clotted. Interpretive Data Percent cell count reference ranges are not reported, since discordance with absolute values may lead to misinterpretation of CBC data. Current Interpretive Data was last revised on 2017. Basophil pct See Comment [facility] Comment: Credited, specimen clotted. Interpretive Data Percent cell count reference ranges are not reported, since discordance with absolute values may lead to misinterpretation of CBC data. Current Interpretive Data was last revised on 2017. Blood 06/12/2024 11:2 2 AM OFFICE ASSISTANCE 06/12/2024 1:07 PM OFFICE ASSISTANCE us Shakila Jung MD LAB BLOOD ORDERABL ES Edited Result - Final [facility] [place] [address] * CBC with auto differential (06/12/2024 11:22 AM OFFICE ASSISTANCE) WBC See Comment 3.8 - 9.9 Comment:Credited, specimen c lotted. Hgb See Comment 13.0 - 17.5 [facility] Comment:Credited, specimen c lotted. Hct See Comment 38.9 - 50.3 [facility] Comment:Credited, specimen c lotted. Plt See Comment 150 - 400 [facility] Comment: Credited, specimen clotted. spoke to ALFRED Velásquez 06/12/2024 14:17:24 OFFICE ASSISTANCE fv MPV See Comment 9.1 - 12.3 [facility] Comment:Credited, specimen c lotted. RBC See Comment 4.30 - 5.80 [facility] Comment:Credited, specimen c lotted. MCV See Comment 81.3 - 96.4 [facility] Comment:Credited, specimen c lotted. MCH See Comment 27.1 - 33.3 [facility] Comment:Credited, specimen c lotted. MCHC See Comment 32.3 - 35.7 [facility] Comment:Credited, specimen c lotted. RDW CV See Comment 11.1 - 14.9 [facility] Comment:Credited, specimen c lotted. RDW SD See Comment 35.7 - 48.1 [facility] Comment:Credited, specimen c lotted. NRBC abs See Comment 0.00 - 0.01 K/cumm [facility] Comment:Credited, specimen c lotted. Blood 06/12/2024 11:2 2 AM OFFICE ASSISTANCE 06/12/2024 1:07 PM OFFICE ASSISTANCE us Shakila Jung MD LAB BLOOD ORDERABL ES Final Result [facility] [place] [address] * Lipase (06/12/2024 11:22 AM OFFICE ASSISTANCE) Lipase 24 10 - 99 Units/L Blood 06/12/2024 11:2 2 AM OFFICE ASSISTANCE 06/12/2024 1:07 PM OFFICE ASSISTANCE Shakila Jung MD LAB BLOOD ORDERABL ES Final Result Performing Organization Address [facility] de Phone Number [facility] [place] [address] * (ABNORMAL) Valproic acid level, total (06/12/2024 11:22 AM OFFICE ASSISTANCE) Pathologist [facility] Valproic Acid 48.0(L) 50.0 - 100.0 mcg/mL Comment: Interpretive Data Therapeutic or toxic effects of anticonvulsant drugs may occur at different concentrations in different patients and the correlation between dose and clinical effect must be evaluated individually. Current interpretative data was last revised on 13. Blood 06/12/2024 11:2 2 AM OFFICE ASSISTANCE 06/12/2024 1:07 PM OFFICE ASSISTANCE Shakila Jung MD LAB BLOOD ORDERABL ES Final Result Performing Organization Address [facility] de Phone Number [facility] [place] [address] * (ABNORMAL) Comprehensive metabolic panel (06/12/2024 11:22 AM OFFICE ASSISTANCE) Sodium 142 135 - 145 mmol/L Potassium, pl 4.6 3.3 - 4.9 mmol/L [facility] Comment:Hemolyzed; Potassium value may be falsely elevated by as much as 0.6-1.0 mmol/L. Suggest redraw and reanalysis. Chloride 101 97 - 110 mmol/L [facility] CO2 29 22 - 32 mmol/L [facility] Anion gap 12 2 - 15 mmol/L [facility] BUN 11 6 - 25 mg/dL [facility] Creatinine 0.60(L) 0.80 - 1.30 mg/dL [facility] Glucose 89 70 - 199 mg/dL [facility] Comment: Interpretive Data Fasting glucose >/= [...] Calcium 10.3 8.5 - 10.3 mg/dL [facility] Bilirubin, total 0.3 0.1 - 1.2 mg/dL [facility] Protein, pl 8.5 6.5 - 8.5 g/dL [facility] Albumin 4.3 3.5 - 5.0 g/dL [facility] Alk phos 114 40 - 130 Units/L [facility] ALT 22 7 - 55 Units/L [facility] AST 45 10 - 50 Units/L [facility] Comment:Hemolyzed; result ma y be falsely elevated Blood 06/12/2024 11:2 2 AM OFFICE ASSISTANCE 06/12/2024 1:07 PM OFFICE ASSISTANCE us Shakila Jung MD LAB BLOOD ORDERABL ES Final Result [facility] [place] [address] * ECG 12-LEAD (06/12/2024 11:01 AM OFFICE ASSISTANCE) Narrative [facility] - 06/12/2024 11:01 AM OFFICE ASSISTANCE Shakila Jung MD 06/12/2024 11:02 AM ECG [...] Jung MD ECG ORDERABLES Fi nal Result [facility] * TNI with LIPID PANEL (08/24/2017 4:57 PM CDT) Troponin I < 0.300 0.000 - 0.300 ng/mL 08/24/2017 5:29 PM T [employer] HISTORICAL RESULTS Comment: Reference using [employer] Chemiluminescence Negative: Repeat in 4-6 hours as indicated. Triglycerides 34 0 - 199 mg/dL 08/24/2017 5:30 PM T [facility] [employer] HISTORICAL RESULTS Comment:12 hr pc highly avani mmended for Triglyceride Cholesterol 129 0 - 199 mg/dL 08/24/2017 5:30 PM T [facility] [employer] HISTORICAL RESULTS Comment: Borderline: 200-239 High Risk: >239 HDL Cholesterol 71 mg/dL 8 5:30 PM T [facility] [employer] HISTORICAL RESULTS Comment: Reference Ranges: Males: >=40 mg/dL Females: >=50 mg/dL LDL Cholesterol, Calc 51 0 - 130 mg/dL 08/24/2017 5:30 PM T [facility] [employer] HISTORICAL RESULTS Comment:High Risk > 159 mg/d L Cholesterol/HDL Ratio 1.8 08/24/2017 5:30 PM T [facility] [employer] HISTORICAL RESULTS Comment: Cholesterol / HDL Ratio 3.5:1 or less is desirable. Cholesterol / HDL Ratio greater than 5:1 is considered higher risk for developing heart disease. 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 Source: [facility] [employer]. 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 Source: [facility] [employer]. 09/18/22 Acinetobacter os 09/18/[address] [facility] Advance Directives For more information, please contact: [phone] Documents on File Type Date Recorded Patient Pododermatologist Expl anation ADVANCE DIRECTIVE 10/08/2012 12:00 AM SANDRA R OF TECHNOLOGY TRAINER FINANCIAL/MEDICAL * Full Code (Latest Code Status on File) Date Activated Date Inactivated Comments 06/12/2024 3:22 PM 06/28/2024 9:30 PM * Full Code Date Activated Date Inactivated Comments 12/10/2020 9:05 AM 12/13/2020 10:44 PM Care Teams Locomotive Switch Operator Relationship Specialty Start Date End Date Marielena Smallwood MD [address] [facility] [place] [address] PCP - General Family Practice 07/08/24
--- OUTSIDE RECORDS SUMMARY | 2024-08-15 02:37 | XMS_ITS | Encounter Summary ---
Author Organization [facility] Address [address] [place] [address] Care Team Providers Care Windows Laptop Technician Name Role Phone Frank Toure MD Unavailable Joyce Luevano NP Primary Care Provider Unavaila Marielena Adame MD Primary Care Provider [phone] Encounter Details Date Type Department Care Team (Late st Contact Info) Description 03/13/2022 [employer] Message Enc [facility] Family Medicine - [address] [address] Joyce Luevano, BILLET HEATER OPERATOR [employer] Update Social History Tobacco Use [...] on filedocumented in this encounter Care Teams Windows Laptop Technician Relationship Specialty Start Date End Date Joyce Luevano NP [address] [place] [address] PCP - General NURSE PRACTITIONER 01/14/20 10/26/23 Marielena Smallwood MD [address] [place] [id number] PCP - General FAMILY PRACTICE 10/27/23 Frank Toure MD [address] [place] [address] [employer] Purchasing And Claims Supervisor CARDIOVASCULAR DISEASE 05/30/16 documented as of this encounter
--- OUTSIDE RECORDS SUMMARY | 2024-08-15 02:37 | XMS_ITS | Encounter Summary ---
Author Organization [facility] Address [address] [place] [address] Care Team Providers Care Material Requisitioner Name Role Phone Frank Toure MD Unavailable Joyce Luevano NP Primary Care Provider Unavaila Marielena Adame MD Primary Care Provider [phone] Encounter Details Date Type Department Care Team (Late st Contact Info) Description 05/11/2022 [employer] Message Enc [facility] Family Medicine - [address] [address] Joyce Luevano, BOUCHRA Pat appointment [...] on filedocumented in this encounter Care Teams Material Requisitioner Relationship Specialty Start Date End Date Joyce Luevano NP [address] [place] [address] PCP - General NURSE PRACTITIONER 01/14/20 10/26/23 Marielena Smallwood MD [address] [place] [id number] PCP - General FAMILY PRACTICE 10/27/23 Frank Toure MD [address] [place] [address] [employer] And Development Director CARDIOVASCULAR DISEASE 05/30/16 documented as of this encounter
--- OUTSIDE RECORDS SUMMARY | 2024-08-15 02:37 | XMS_ITS | Encounter Summary ---
Author Organization [facility] Address [address] [place] [address] Care Team Providers Care Bottom Pounder Cement Shoes Name Role Phone Frank Toure MD Unavailable Joyce Luevano NP Primary Care Provider Unavaila Marielena Adame MD Primary Care Provider [phone] Encounter Details Date Type Department Care Team (Late st Contact Info) Description 03/15/2022 [employer] Message Enc [facility] Medical [facility] Family Medicine - [address] [address] Joyce Luevano, PASSENGER CAR CONDUCTOR [employer] Social History Tobacco Use Types [...] on filedocumented in this encounter Care Teams Bottom Pounder Cement Shoes Relationship Specialty Start Date End Date Joyce Luevano NP [address] [place] [address] PCP - General NURSE PRACTITIONER 01/14/20 10/26/23 Marielena Smallwood MD [address] [place] [id number] PCP - General FAMILY PRACTICE 10/27/23 Frank Toure MD [address] [place] [address] [employer] Custom Decorating Consultant CARDIOVASCULAR DISEASE 05/30/16 documented as of this encounter
--- OUTSIDE RECORDS SUMMARY | 2024-08-15 02:37 | XMS_ITS | Clinical Summary ---
Author Organization [facility] Address [address] [place] [address] Care Team Providers Care Donor Recruiter Name Role Phone Farnk Toure MD Unavailable Marielena Smallwood MD Primary Care Provider [phone] Allergies Active Allergy Reactions Criticality Noted Date Comments Clonazepam Hallucinations Medium 12/09/2021 hallucinations Medications vitamin B-1 100 MG TabIndications:Seiz ure ([facility]) Take 1 tablet (100 mg total) by [...] x 7.5 MG/0.1ML Liquid Therapy PackIndications:Tara llanes ([facility]) 2 sprays by Nasal route as needed. [...] No evidence of infection Urine cultures from [facility] last month were negative growth as [...] infection. Antibiotics not indicated Osteoporosis 11/22/2018 Seizure ([facility]) 08/25/2017 Cerebrovascular accident (CV A) due to thrombosis of right posterior cerebral artery ([facility]) 02/20/2016 Assessment & Plan (11/29/2018 9:36 PM CDT): Patient has residual cognitive difficulties I think beyond with patient and her family have recognized in the past however as noted in adequate medication intake her side effects may be causing deterioration. Hypertension 07/24/2015 Hyperlipidemia 04/14/2015 Assessment & Plan (11/29/2018 9:36 PM CDT): Continue home meds and monitor Seizure ([facility]) 04/11/2015 Assessment & Plan (11/29/2018 9:39 PM CDT): History of generalized seizure disorder and being managed by a neurologist in [facility] however there is confusion from family about dosages of his medications because he is got multiple pill bottles at home. Verification of levetiracetam dose per neurologist noted Encounters Date Type Department Care Team Description 08/14/2024 MyChart Message Enc [facility] Family Medicine [address] [address] Marielena Smallwood MD Use of [employer] 07/08/2024 Scan [facility] SRVCS Scanned, [...] Comments Blood Pressure 128/72 06/17/2022 10:46 AM [facility] Pulse 95 06/17/2022 10:46 AM [facility] Temperature 36.4 C (97.6 F) 06/07/2022 12:31 PM [facility] Respiratory Rate 18 06/17/2022 10:4 6 AM [facility] Oxygen Saturation 98% 06/17/2022 10: 46 AM [facility] Inhaled Oxygen Concentration - - Weight 59 kg (130 lb) 06/17/2022 10:46 AM [facility] stated - unable to weigh Height 180.3 cm (5' 11 ) 06/17/2022 10: 46 AM [facility] Body Mass Index 18.13 06/17/2022 10:46 AM [facility] Plan of Treatment Health Maintenance Due Date Last Done Comments Annual Physical 01/27/1963 Zoster Vaccines (1 of 2) 2011 RSV Immunization or 60+ Years (1 - Risk 60-74 years 1-dose series) 2021 COVID-19 Vaccine ( - season) 2024 04/06/2021, 07/02/2020, 06/11/2020 Influenza Adult (#1) 2024 02/01/2022, 03/16/2021, 03/07/2020, Additional history exists PHQ-2 (Physician [place]) 05/30/2024 Colorectal Cancer Screening Colonoscopy (10 Years) [...] HEPATITIS C ANTIBODY Routine 06/23/2016 11:13 AM [facility] from Last 3 Months or Most Recently [...] * HEPATITIS C ANTIBODY (06/23/2016 11:13 AM [facility]) HEPATITIS C AB NON-REACTIVE [place] [address] NR [facility] TO EPIC CONVERSION 06/23/2016 11:1 3 AM [facility] 06/23/2016 11:13 AM [facility] Narrative [facility] TO EPIC CONVERSION - 06/24/2016 6:41 PM [facility] Result Communication: No patient communication needed at this time us Misael Maradiaga DO LABORATORY Final Result [facility] TO EPIC CONVERSION from Last 3 Months or Most Recently Relevant to Health Maintenance Insurance [employer] Advance Directives Documents on File Type Date Recorded Patient Visual Manager Expl anation Advance Directives and Living Will 10/17/2017 [employer]VANCE DIRECTIVES * Full Code (Latest Code Status on File) Date Activated Date Inactivated Comments 12/04/2018 1:44 PM 12/12/2018 3:19 PM * Full Code Date Activated Date Inactivated Comments 11/29/2018 6:21 PM 12/04/2018 1:38 PM Care Teams Donor Recruiter Relationship Specialty Start Date End Date Marielena Smallwood MD [address] [place] [phone] PCP - General FAMILY PRACTICE 10/27/23 Frank Toure MD [address] [place] [id number] [employer] Display Designer Outside CARDIOVASCULAR DISEASE 05/30/16
--- OUTSIDE RECORDS SUMMARY | 2024-08-15 02:37 | XMS_ITS | Clinical Summary ---
Author Organization [facility] Address [address] [place] [address] Care Team Providers Care Tow Bar Driver Name Role Phone Elizabeth Sullivan RN Unavailable [phone] Dany Monsivais MD Primary Care Provider Source Comments [facility],non-owned Affiliates and Associated Physician Practices is amultiple site organization consisting of ambulatory clinics and hospital sitesin [place], [place], [place] and [place]. This disclosure is being madepursuant to the Care Everywhere program and may not contain all information available regarding this patient. Last updated 18.[facility] Allergies Active Allergy Reactions Criticality Noted Date [...] No evidence of infection Urine cultures from [facility] last month were negative growth as [...] Department Care Team Description 08/02/2024 4:31 PM QUARRY BOSS - 08/08/2024 8:48 PM CDT Hospital Encounter [facility] [address] [facility] [place] [address] Elmo Johnson MD Mayer, Joshua C, DO Arshad, Iqra, MD Archuleta, Lydia, MD Joag, Madhura, MD Internal Medicine Discharge Disposition: Long Term or Supportive Care 08/02/2024 1:23 AM QUARRY BOSS - 08/02/2024 8:15 AM QUARRY BOSS Emergency [facility] [address] [place] [address] Arthur Marinelli MD Other tracheostomy complication (Primary Dx); Abdominal pain, unspecified abdominal location Discharge Disposition: Fpc Facility 08/02/2024 Travel 07/27/2024 3:54 PM QUARRY BOSS - 07/28/2024 6:53 AM QUARRY BOSS Emergency [facility] [address] [place] [phone] Serjio Vilchis MD Feeding intolerance (Primary Dx); Generalized abdominal pain; Chronic pulmonary aspiration, initial encounter Discharge Disposition: Fpc Facility 07/27/2024 Travel 07/18/2024 4:15 PM QUARRY BOSS - 07/18/2024 4:45 PM QUARRY BOSS Surgery [facility] [address] [place] [phone] Clifton Trinh MD EGD(ISO) 07/18/2024 4:05 PM QUARRY BOSS Anesthesia Event [facility] [address] [place] [phone] Teri Trent MD Dobbs, Yelena L, WORKSHOP MANAGER-CENTRAL MELT SPECIALIST 07/16/2024 9:23 PM QUARRY BOSS - 07/19/2024 5:51 PM QUARRY BOSS Hospital Encounter [facility] [address] ACUTE [address] [place] [phone] Quan Gan MD Arshad, Iqra, MD Bastin, Taylor J, MD Morreale, Peter J III, MD Emergency Medicine Discharge Disposition: Fpc Facility 07/16/2024 Travel 06/07/2024 5:04 PM QUARRY BOSS - 06/09/2024 9:50 PM QUARRY BOSS Hospital Encounter [facility] Early Admission Unit [address] [place] [phone] Elizabeth Hernandez MD Miller, Chad S, MD Naidoo, Shiva F, MD Heis, Farah, MD Internal Medicine Discharge Disposition: Other Facility Not Defined Elsewhere 06/07/2024 Travel from Last 3 Months Immunizations Name Administration Dates Next Due [employer] primary monoval ent 12+ yr 0.3mL Purple [...] and heating? Not hard at all 08/06/2024 [facility] of Occupat ional Health - Occupational Stress [...] in a fpc (including now)? No 06/19/2023 Housing Stability Vital Sign Answer Vinay e Recorded In the last 12 months, was t here a time when you were not able to pay the mortgage or rent on time? No 08/06/2024 In the past 12 months, how m any times have you moved where you were living? 1 08/06/2024 At any time in the past 12 m [facility], were you homeless or living in a fpc (including now)? No 08/06/2024 Sex and Gender [...] 72.6 kg (160 lb) 08/04/2024 12:00 AM QUARRY BOSS Height 175.3 cm (5' 9.02 ) 08/04/2024 12:[address] Body Mass Index 23.62 08/04/2024 12:00 AM QUARRY BOSS Plan of Treatment Upcoming Encounters Date Type Department Care Team (Late st Contact Info) Description 12/05/2024 1:00 PM CDT Office Visit [facility] - Neurology [address] [place] [address], [place] [phone] Sean Raymundo, DO [address] [place] [address] [place] [phone] Health Maintenance Due Date Last Done Comments [...] 60-74 years 1-dose series) 2021 COVID-19 VACCINE (4 - 2023- season) 2024 04/06/2021, 07/02/2020, 06/11/2020 INFLUENZA VACCINE (#1) 2024 2, 03/16/2021, 03/07/2020, Additional history exists DEPRESSION SCREENING 05/30/2024 DTAP/TDAP/TD VACCINES (3 - Td or Tdap) 06/06/2027 06/06/2017, 03/23/2017 SCREENING FOR DIABETES 08/07/2027 5, 08/05/2024, 08/05/2024, Additional history exists HIV SCREENING Completed 09/01/2022, 040 01/2019, 01/30/2018, Additional history exists HEPATITIS C SCREENING Completed 06/26/2024 , 09/01/2022, 01/30/2018, Additional history exists HEPATITIS B VACCINE [...] PM CDT PEG (percutaneous endoscopic gastrostomy) status CT ABDOMEN WO CONTRAST Routine 08/06/2024 11:00 AM CDT Nausea without vomiting PEG (percutaneous endoscopic gastrostomy) status GLUCOSE - POINT OF CARE Routine 08/06/2024 6:45 AM CDT XR ABDOMEN KUB PORTABLE STAT 08/05/2024 6:14 AM CDT Nausea and vomiting, unspecified vomiting type GLUCOSE - POINT OF CARE Routine 08/05/2024 1:43 AM QUARRY BOSS CBC W/O DIFFERENTIAL Routine 08/05/2024 1:02 AM QUARRY BOSS Nausea without vomiting PT-INR [facility] Routine 08/05/2024 1:02 AM QUARRY BOSS Nausea without vomiting MAGNESIUM BLOOD Routine 08/05/2024 1:02 AM [facility]ARR[facility] BOSS Nausea without vomiting RENAL FUNCTION PANEL Routine 08/05/2024 1:02 AM [facility]ARRY BOSS Nausea without vomiting CBC W/O DIFFERENTIAL Routine 08/04/2024 12:12 PM QUARRY BOSS Nausea without vomiting PSA FREE + TOTAL PANEL AM Draw 08/04/2024 12:12 PM QUARRY BOSS Acute cystitis without hematuria PT-INR [facility] Routine 08/04/2024 12:12 PM [facility]ARRY BOSS Nausea without vomiting MAGNESIUM BLOOD Routine 08/04/2024 12:12 PM [facility]ARRY BOSS Nausea without vomiting RENAL FUNCTION PANEL Routine 08/04/2024 12:12 PM QUARRY BOSS Nausea without vomiting CULTURE URINE STAT 08/03/2024 8:53 AM QUARRY BOSS Acute cystitis without hematuria HEMOGLOBIN A1C RINKU 08/03/2024 5:18 AM QUARRY BOSS Nausea without vomiting CBC W/O DIFFERENTIAL STAT 08/03/2024 5:18 AM [facility]Y BOSS Nausea without vomiting PT-INR [facility] STAT 08/03/2024 5:18 AM [facility] BOSS Nausea without vomiting MAGNESIUM BLOOD STAT 08/03/2024 5:18 AM [facility] BOSS Nausea without vomiting RENAL FUNCTION PANEL STAT 08/03/2024 5:18 AM [facility]ARRY BOSS Nausea without vomiting TYPE + SCREEN PANEL STAT 08/02/2024 9 [address] CHEST ABDOMEN PELVIS W CONT STAT 08/02/2024 9:42 PM QUARRY BOSS Nausea without vomiting XR CHEST 1VW PORTABLE STAT 08/02/2024 5:15 PM QUARRY BOSS Nausea without vomiting URINALYSIS REFLEX TO MICROSCOPIC NO CULTURE STAT 08/02/2024 5:08 PM QUARRY BOSS PT-INR [facility] STAT 08/02/2024 5:08 PM QUARRY BOSS COMPREHENSIVE METABOLIC PANEL STAT 08/02/2024 5:08 PM QUARRY BOSS LIPASE BLOOD STAT 08/02/2024 5:08 PM QUARRY BOSS CBC W AUTO DIFFERENTIAL STAT 08/02/2024 5:08 PM QUARRY BOSS XR CHEST 1VW PORTABLE STAT 08/02/2024 2:33 AM QUARRY BOSS Abdominal pain, unspecified abdominal location LIPASE BLOOD STAT 08/02/2024 2:03 AM [facility] BOSS COMPREHENSIVE METABOLIC PANEL STAT 08/02/2024 2:03 AM QUARRY BOSS CBC W AUTO DIFFERENTIAL STAT 08/02/2024 2:[address] CHEST ABDOMEN PELVIS W CONT STAT 07/28/2024 12:25 AM QUARRY BOSS Generalized abdominal pain COMPREHENSIVE METABOLIC PANEL STAT 07/27/2024 6:26 PM QUARRY BOSS CBC W AUTO DIFFERENTIAL STAT 07/27/2024 6:26 PM QUARRY BOSS TROPONIN-I HIGH SENSITIVE BASELINE + 1HR STAT 07/27/2024 6:26 PM QUARRY BOSS MAGNESIUM BLOOD STAT 07/27/2024 6:26 PM QUARRY BOSS LIPASE BLOOD STAT 07/27/2024 6:26 PM QUARRY BOSS EKG 12-LEAD Routine 07/27/2024 5:34 PM QUARRY BOSS Generalized abdominal pain XR CHEST 1VW PORTABLE Routine 07/27/2024 12:39 PM QUARRY BOSS Nausea and vomiting, unspecified vomiting type GLUCOSE - POINT OF CARE Routine 07/19/2024 5:00 PM QUARRY BOSS GLUCOSE - POINT OF CARE Routine 07/19/2024 12:10 PM QUARRY BOSS GLUCOSE - POINT OF CARE Routine 07/19/2024 8:10 AM QUARRY BOSS CBC W AUTO DIFFERENTIAL Routine 07/19/2024 5:27 AM QUARRY BOSS Coffee ground emesis GLUCOSE - POINT OF CARE Routine 07/19/2024 3:34 AM [facility]ARRY BOSS GLUCOSE - POINT OF CARE Routine 07/18/2024 11:33 PM QUARRY BOSS GLUCOSE - POINT OF CARE Routine 07/18/2024 8:01 PM QUARRY BOSS PATHOLOGY TISSUE Routine 07/18/2024 4:27 PM QUARRY BOSS Coffee ground emesis TN ED EGD FLEX TRANSORAL DX 07/18/2024 4:00 PM QUARRY BOSS Coffee ground emesis EGD Routine 07/18/2024 3:52 PM QUARRY BOSS GLUCOSE - POINT OF CARE Routine 07/18/2024 12:11 PM QUARRY BOSS GLUCOSE - POINT OF CARE Routine 07/18/2024 11:44 AM QUARRY BOSS CBC W AUTO DIFFERENTIAL Routine 07/18/2024 8:07 AM QUARRY BOSS Coffee ground emesis PT-INR [facility] Routine 07/18/2024 8:07 AM QUARRY BOSS Nausea and vomiting, unspecified vomiting type VALPROIC ACID LEVEL Routine 07/18/2024 8 :07 AM QUARRY BOSS Nausea and vomiting, unspecified vomiting type PHOSPHORUS BLOOD AM Draw 07/18/2024 8:07 AM QUARRY BOSS Coffee ground emesis COMPREHENSIVE METABOLIC PANEL AM Draw 07/18/2024 8:07 AM QUARRY BOSS Coffee ground emesis MAGNESIUM BLOOD AM Draw 07/18/2024 8:07 AM QUARRY BOSS Coffee ground emesis GLUCOSE - POINT OF CARE Routine 07/18/2024 7:42 AM QUARRY BOSS GLUCOSE - POINT OF CARE Routine 07/18/2024 3:31 AM QUARRY BOSS GLUCOSE - POINT OF CARE Routine 07/17/2024 11:36 PM QUARRY BOSS GLUCOSE - POINT OF CARE Routine 07/17/2024 8:42 PM QUARRY BOSS CARDIAC EKG ORDER 07/17/2024 1:4 4 PM QUARRY BOSS URINE MICROSCOPIC ONLY REFLEX TO CULTURE STAT 07/17/2024 9:58 AM QUARRY BOSS URINALYSIS REFLEX MICROSCOPIC REFLEX CULTURE STAT 07/17/2024 9:58 AM QUARRY BOSS CULTURE URINE STAT 07/17/2024 9:58 AM QUARRY BOSS CBC W AUTO DIFFERENTIAL STAT 07/17/2024 8:31 AM QUARRY BOSS Coffee ground emesis TROPONIN-I HIGH SENSITIVE REFLEX 1HOUR Timed 07/17/2024 12:03 AM QUARRY BOSS CBC W AUTO DIFFERENTIAL STAT 07/17/2024 12:03 AM QUARRY BOSS SARS-COV-2 (COVID-19) FLU A/B RSV PCR RAPID STAT 07/17/2024 12:[address] ABDOMEN PELVIS W CONTRAST STAT 07/16/2024 11:41 PM QUARRY BOSS Nausea and vomiting, unspecified vomiting type Abdominal distention Other constipation CK BLOOD STAT 07/16/2024 10:44 PM QUARRY BOSS TROPONIN-I HIGH SENSITIVE BASELINE + 1HR STAT 07/16/2024 10:44 PM QUARRY BOSS LIPASE BLOOD STAT 07/16/2024 10:44 PM QUARRY BOSS LACTIC ACID BLOOD REFLEX TO REPEAT STAT 07/16/2024 10:44 PM QUARRY BOSS COMPREHENSIVE METABOLIC PANEL STAT 07/16/2024 10:44 PM QUARRY BOSS XR CHEST 1VW PORTABLE STAT 07/16/2024 10:28 PM QUARRY BOSS Nausea and vomiting, unspecified vomiting type CBC W/O DIFFERENTIAL AM Draw 06/09/2024 1:20 AM QUARRY BOSS GLUCOSE - POINT OF CARE Routine 06/08/2024 6:22 PM [facility]ARRY BOSS GLUCOSE - POINT OF CARE Routine 06/08/2024 1:12 PM QUARRY BOSS PHOSPHORUS BLOOD STAT 06/08/2024 4:11 AM QUARRY BOSS MAGNESIUM BLOOD STAT 06/08/2024 4:11 AM QUARRY BOSS LIPID PROFILE STAT 06/08/2024 4:11 AM QUARRY BOSS CBC W/O DIFFERENTIAL STAT 06/08/2024 4:11 AM QUARRY BOSS BASIC METABOLIC PANEL (CALCIUM TOTAL) STAT 06/08/2024 4:11 AM QUARRY BOSS PT-INR SLH STAT 06/08/2024 4:11 AM QUARRY BOSS URINALYSIS REFLEX MICROSCOPIC REFLEX CULTURE STAT 06/07/2024 10:24 PM QUARRY BOSS LIPASE BLOOD STAT 06/07/2024 8:01 PM QUARRY BOSS COMPREHENSIVE METABOLIC PANEL STAT 06/07/2024 8:01 PM QUARRY BOSS CBC W AUTO DIFFERENTIAL STAT 06/07/2024 8:01 PM QUARRY BOSS HEPATITIS C AB SCREEN RFLX NAAT QUANT [...] Impression: Successful exchange of the existing 18 Kenyan gastrojejunostomy catheter for a new 18 Kenyan gastrojejunostomy catheter under fluoroscopic guidance, as described [...] jelly Procedure: Exchange of the existing 18 Kenyan gastrojejunostomy catheter for a new 18 Kenyan gastrojejunostomy catheter under fluoroscopic guidance. Start time: 1435 End time: 1451 Fluoroscopic time: 4.0 minutes Contrast: 10 mL of Isovue-300 Procedure in detail: The procedure, risks, and possible complications were explained to the patient in detail, and informed consent was obtained. The patient was placed supine on the procedure table. A system admin film of abdomen was obtained, which showed [...] was removed over the wire. A 4 Kenyan Kumpe catheter was advanced over the wire and using this combination, was advanced into the jejunum. The Kumpe catheter was then removed over the wire. A new 18 Kenyan gastrojejunostomy catheter was then advanced over the [...] jelly Procedure: Exchange of the existing 18 Kenyan gastrojejunostomy catheter for a new 18 Kenyan gastrojejunostomy catheter under fluoroscopicguidance. Start time: 1435 End time: 1451 Fluoroscopic time: 4.0 minutes Contrast: 10 mL of Isovue-300 Procedure in detail: The procedure, risks, and possible complications were explained to the patient in detail, and informed consent was obtained. The patient was placed supine on the procedure table. A system admin film of abdomen wasobtained, which showed the [...] was removed over the wire. A 4 Kenyan Kumpe catheter wasadvanced over the wire and using this combination, was advanced into the jejunum. The Kumpe catheter was then removed over the wire. A new 18 Kenyan gastrojejunostomy catheter was then advanced over the [...] 18 Frenchgastrojejunostomy catheter for a new 18 Kenyan gastrojejunostomy catheter underfluoroscopic guidance, as described above. [...] feedingand call the IR service. I, Dr. Pyaton, was present and performed/supervised the entireprocedure. > [...] kidneys. > Dictated by Yessica Lovell MD, (residential sales representative). I, Bebo Kuo MD have personally reviewed [...] Dictated by Yessica Lovell MD, MD (residential sales representative). I, Bebo Kuo MD have personally reviewed and interpreted this examination/study. > Interpreting Provider: Bebo Kuo MD on 51:31 PM Yary James MD CT ORDERABLES * GLUCOSE - POINT OF CARE (08/06/2024 6:45 AM CDT) Only the most recent of16 resultswithin the time period is included. Glucose WB/POC 92 70 - 99 mg/dL 08/06/2024 6:46 AM CDT [facility] Specimen Type Cap Fingerstick 2024 6:46 AM CDT [facility] Blood BLOOD SPECIMEN / Unknown 08/06/2024 6:45 AM CDT 08/06/2024 6:46 AM CDT Yary James MD LAB - POINT OF CARE ORDERABLES [facility] [address] [place] [phone], [facility] [phone] * XR Abdomen Kub Portable (08/05/2024 6:14 AM CDT) Anatomical Region Laterality Modality Abdomen Digital Radiogra phy 08/05/2024 9:2 5 AM CDT Impressions 08/05/2024 5:10 PM CDT IMPRESSION: No radiographic evidence of acute intra-abdominal process. Report dictated by Sierra Lyman Dr, MD (residential sales representative). Ramon Thomason MD have personally reviewed and [...] dictated by Sierra Lyman Dr, MD (residential sales representative). Ramon Thomason MD have personally reviewed and interpreted this examination/study. > Interpreting Provider: Ramon Ross MD on 08/05/2024 5:10 PM Neha Palomino MD DIAGNOSTIC IMAGING O RDERABLES * PT-INR [facility] (08/05/2024 1:02 AM QUARRY BOSS) Only the most recent of6 resultswithin the time period is included. PT 13.8 12.1 - 14.8 Seconds 08/05/2024 3:57 AM [facility] INR 1.1 See Comment 08/05/2024 3:57 AM [facility] Comment:The suggested therap eutic range for standard coumadin (warfarin) therapy is an INR of 2.0-3.0. For high-risk patients (Mechanical Mitral Valve Prosthesis, etc.), the suggested prophylactic therapeutic range is an INR of 2.5-3.5. Blood BLOOD SPECIMEN / Unknown Lab Venipuncture / Unknown 08/05/2024 1:02 AM [facility]Y BOSS 08/05/2024 3:37 AM T Lowell Cao DO LAB - COAGULATION OR DERABLES [facility] [address] [place] [address], [facility] [phone] * (ABNORMAL) CBC W/O DIFFERENTIAL (08/05/2024 1:02 AM QUARRY BOSS) Only the most recent of5 resultswithin the time period is included. WBC 6.3 4.0 - 10.7 x10E9/L 08/05/2024 3:57 AM [facility] RBC Count 4.08(L) 4.30 - 5.80 x10E12/L 08/05/2024 3:57 AM [facility] Hemoglobin 12.8(L) 13.3 - 17.5 g/dL 08/05/2024 3:57 AM [facility] Hematocrit 38.5(L) 38.7 - 51.1 % 08/05/2024 3:57 AM [facility] MCV 94.4 80.0 - 98.0 fL 08/05/2024 3:57 AM [facility] MCH 31.4 26.7 - 33.6 pg 08/05/2024 3:57 AM [facility] MCHC 33.2 31.7 - 36.3 g/dL 08/05/2024 3:57 AM [facility] RDW-CV 13.2 11.3 - 14.8 % 08/05/2024 3:57 AM [facility] Platelet Count 187 150 - 420 x10E9/L 08/05/2024 3:57 AM [facility] MPV 13.2(H) 7.8 - 11.4 fL 08/05/2024 3:57 AM [facility] Blood BLOOD SPECIMEN / Unknown Lab Venipuncture / Unknown 08/05/2024 1:02 AM [facility] BOSS 08/05/2024 3:37 AM [facility] Marianne Daniels MD LAB - HEMATOLOGY ORD ERABLES [facility] [address] [place] [address], [facility] [phone] * (ABNORMAL) RENAL FUNCTION PANEL (08/05/2024 1:02 AM QUARRY BOSS) Only the most recent of3 resultswithin the time period is included. BUN 16 7 - 26 mg/dL 08/05/2024 4:02 AM [facility] Creatinine 0.63(L) 0.71 - 1.16 mg/dL 08/05/2024 4:02 AM [facility] Sodium 140 136 - 145 mmol/L 08/05/2024 4:02 AM [facility] Potassium 4.0 3.5 - 4.5 mmol/L 08/05/2024 4:02 AM [facility] Chloride 107 98 - 107 mmol/L 08/05/2024 4:02 AM [facility] CO2 24 22 - 29 mmol/L 08/05/2024 4:02 AM [facility] Glucose 79 70 - 99 mg/dL 08/05/2024 4:02 AM [facility] Albumin 3.3(L) 3.4 - 5.0 g/dL 08/05/2024 4:02 AM [facility] Calcium 8.9 8.4 - 10.2 mg/dL 08/05/2024 4:02 AM [facility] Phosphorus 3.6 2.8 - 5.1 mg/dL 08/05/2024 4:02 AM [facility] Anion Gap 9 6 - 16 08/05/2024 4:02 AM [facility] BUN/Creatinine Ratio 25(H) 7 - 23 08/05/2024 4:02 AM [facility] Osmolality Calculated 290 275 - 295 mOsm/kg 08/05/2024 4:02 AM [facility] eGFR by CKD-EPI >90 >=90 mL/min/1.7 3 m2 08/05/2024 4:02 AM [facility] Blood BLOOD SPECIMEN / Unknown Lab Venipuncture / Unknown 08/05/2024 1:02 AM [facility] 08/05/2024 3:37 AM CDT Lowell Cao DO LAB - CHEMISTRY MARSHAL [facility]EROS [facility] [address] [place] [phone], [place] [phone] * MAGNESIUM BLOOD (08/05/2024 1:02 AM QUARRY BOSS) Only the most recent of6 resultswithin the time period is included. Magnesium 1.9 1.6 - 2.6 mg/dL 08/05/2024 4:02 AM [facility] Blood BLOOD SPECIMEN / Unknown Lab Venipuncture / Unknown 08/05/2024 1:02 AM [facility]OSS 08/05/2024 3:37 AM CDT Lowell Cao LAB - CHEMISTRY MARSHAL MEDEROS [facility] [address] [place] [phone], [place] [phone] * PSA FREE + TOTAL PANEL (08/04/2024 12:12 PM QUARRY BOSS) PSA Total 1.7 0.0 - 4.0 ng/mL 08/04/2024 1:33 PM [facility] PSA Free 0.21 0.00 - 0.50 ng/mL 08/04/2024 1:33 PM [facility] PSA % Free 12 See Comment % 08/04/2024 1:33 PM [facility] Comment: [facility] uses the [employer] Water Softener Servicer And Installer method for Total and Free PSA measurements. [...] Free and/or Total PSA alone. Distribution of RESIDENTIAL GAS HEAT TECHNICIAN % Free PSA Values for specimens with RESIDENTIAL GAS HEAT TECHNICIAN Total PSA values between 4.0 and 10.0 ng/mL: % Free PSA Ranges <10.0 10.0-15.0 15.0-20.0 20.0-26.0 >26.0 Number of ----- --------- --------- --------- ----- Subjects Biopsy --------- ------ Negative 307 9.4 22.5 25.4 24.8 17.9 Positive 123 27.6 30.9 17.9 15.4 8.1 PSA % Free 08/04/2024 1:33 PM [facility] Blood BLOOD SPECIMEN / Unknown Lab Venipuncture / Unknown 08/04/2024 12:12 PM [facility] 08/04/2024 12:42 PM [facility] Marianne Daniels MD LAB - CHEMISTRY MARSHAL MEDEROS [facility] Organization Address City/State/[facility] Co de Phone Number [address] [address], [facility] [phone] * (ABNORMAL) CULTURE URINE (08/03/2024 8:53 AM [facility]Y BOSS) Only the most recent of2 resultswithin the time period is included. Culture Urine 50,000-100,000 CFU/mL Pseudomonas aeruginosa(A) JELLY 08/07/2024 6:04 AM [facility] Comment:This is an appended report. These results have been appended to a previously final verified report. Culture Urine 50,000-100,000 CFU/mL Corynebacterium striatum(A) JELLY 08/07/2024 6:04 AM [facility] Comment:This is an appended report. These results have been appended to a previously final verified report. Culture Urine 50,000-100,000 CFU/mL Providencia stuartii(A) JELLY 08/07/2024 6:04 AM [facility] Urine URINE SPECIMEN OBTAINED BY CLEAN CATCH PROCEDURE / Unknown Collection / Unknown 08/03/2024 8:53 AM [facility] 08/03/2024 8:56 AM [facility] Narrative Organism Antibiotic Method Susceptibility Pseudomonas aeruginosa [...] MD LAB - MICROBIOLOGY O RDERABLES [facility] [address] [place] [address], [facility] [phone] * HEMOGLOBIN A1C (08/03/2024 5:18 AM [facility]Y BOSS) Hemoglobin A1c 5.3 <=5.6 % 08/03/2024 8:24 AM [facility] Estimated Average Glucose 105 mg/dL 08/03/2024 8:24 AM [facility] Comment: HbA1c Interpretation: Normal : < 5.7% Pre-diabetes: 5.7-6.4% Diabetes: Equal to or greater than 6.5% Test results diagnostic of diabetes should be repeated for confirmation. Treatment target values recommended by ADA and other clinical organizations should be used to evaluate metabolic control in patients. Reference: [place] [employer], Standards of Care in Diabetes -2020 In patients 70 years and older consider HbA1c target range of 7.0-7.5% (Reference: Lukas Matamoros et al. JAMDA. 2012) The Sebia assay for the measurement of HbA1c is a National Glycohemoglobin Standardization Program (NGSP) certified method. Blood BLOOD SPECIMEN / Unknown Venipuncture / Unknown 08/03/2024 5:18 AM [facility] 08/03/2024 5:24 AM [facility] Lowell Cao DO LAB - CHEMISTRY MARSHAL MEDEROS [facility] [address] [place] [phone], [place] [phone] * TYPE + SCREEN PANEL (08/02/2024 9:53 PM QUARRY BOSS) Antibody Screen NEG 10:41 PM [facility] ABO Rh O POS 08/02/2024 10:41 PM [facility] Blood Bank BLOOD SPECIMEN / Unknown Venipuncture / Unknown 08/02/2024 9:53 PM [facility] 08/02/2024 10:05 PM [facility] Elmo Johnson MD LAB - BLOOD BANK ORD ERABLES Performing Organization Address City/[facility]/ZIP Co de Phone Number [facility] [address] [place] [phone], [place] [phone] * CT Chest Abdomen Pelvis W Cont (08/02/2024 9:42 PM [facility] BOSS) Only the most recent of2 resultswithin the time period is included. Anatomical Region Laterality Modality Chest, Abdomen, Pelvis Computed Tomography 08/02/2024 9:5 6 PM [facility] Impressions 08/02/2024 11:19 PM [facility] Impression: 1.Trace left-sided pleural effusion, bilateral dependent [...] > Dictated by Justin Burrell MD (residential sales representative). I, Bebo Kuo MD have personally reviewed and interpreted this examination/study. > Interpreting Provider: Bebo Kuo MD on 08/02/2024 11:19 PM Narrative 08/02/2024 11:19 PM [facility] PROCEDURE: CT CHEST ABDOMEN PELVIS W CONT, [...] > Dictated by Justin Burrell MD (residential sales representative). IBebo MD have personally reviewed and interpreted this examination/study. > Interpreting Provider: Bebo Kuo MD on 1:19 PM Elmo Johnson MD CT ORDERABLES * XR CHEST 1VW PORTABLE (08/02/2024 5:15 PM [facility]) Only the most recent of4 resultswithin the time period is included. Anatomical Region Laterality Modality Chest Digital Radiogra phy 08/02/2024 5:27 PM [facility] Narrative 08/03/2024 9:31 AM [facility] PROCEDURE: XR CHEST 1VW PORTABLE, DATE/TIME OF [...] > Dictated by Meeta Leblanc MD (residential sales representative) Ramon Thomason MD have personally reviewed and [...] > Dictated by Meeta Leblanc MD (residential sales representative) I, Ramon Ross MD have personally reviewed and interpreted this examination/study. > Interpreting Provider: Ramon Ross MD on 08/03/2024 9:31 AM Elmo Johnson MD DIAGNOSTIC IMAGING O RDERABLES * (ABNORMAL) URINALYSIS REFLEX TO MICROSCOPIC NO CULTURE (08/02/2024 5:08 PM [facility]) Color UA Yellow Yellow, Straw 08/02/2024 5:46 PM [facility] Clarity UA Turbid(A) Clear 08/02/2024 5:46 PM [facility] Glucose UA Normal Normal 08/02/2024 5:46 PM [facility] Bilirubin UA Negative Negative 08/02/2024 5:46 PM [facility] Ketone UA Negative Negative 08/02/2024 5:46 PM [facility] Specific Vernon UA 1.015 1.005 - 1.030 08/02/2024 5:46 PM [facility] Blood UA Negative Negative 08/02/2024 5:46 PM [facility] pH UA 7.0 5.0 - 9.0 pH 08/02/2024 5:46 PM [facility] Protein UA Trace(A) Negative 08/02/2024 5:46 PM [facility] Urobilinogen UA 3.0(A) Normal mg/dL 08/02/2024 5:46 PM [facility] Nitrite UA Positive(A) Negative 08/02/2024 5:46 PM [facility] Leukocyte UA 500 NOEL/uL(A) Negative 08/02/2024 5:46 PM [facility] RBC UA 11-20(A) 0 - 5 # /hpf 08/02/2024 5:46 PM [facility] WBC UA >100(A) 0 - 5 # /hpf 08/02/2024 5:46 PM [facility] Bacteria UA 1+(A) None Seen 08/02/2024 5:46 PM [facility] Squamous Epithelial Cells None Seen 0 - 5 /hpf 08/02/2024 5:46 PM [facility] Urine URINE SPECIMEN OBTAINED BY SINGLE CATHETERIZATION OF URINARY BLADDER / Unknown Collection / Unknown 08/02/2024 5:08 PM [facility] 08/02/2024 5:11 PM [facility] Elmo Johnson MD LAB - URINALYSIS ORD ERABLES [address] [address], [facility] [phone] * (ABNORMAL) CBC W AUTO DIFFERENTIAL (08/02/2024 5:08 PM [facility]) Only the most recent of8 resultswithin the time period is included. WBC 8.4 4.0 - 10.7 x10E9/L 08/02/2024 5:22 PM [facility] RBC Count 4.27(L) 4.30 - 5.80 x10E12/L 08/02/2024 5:22 PM [facility] Hemoglobin 13.6 13.3 - 17.5 g/dL 08/02/2024 5:22 PM [facility] Hematocrit 41.1 38.7 - 51.1 % 08/02/2024 5:22 PM [facility] MCV 96.3 80.0 - 98.0 fL 08/02/2024 5:22 PM [facility] MCH 31.9 26.7 - 33.6 pg 08/02/2024 5:22 PM [facility] MCHC 33.1 31.7 - 36.3 g/dL 08/02/2024 5:22 PM [facility] RDW-CV 13.2 11.3 - 14.8 % 08/02/2024 5:22 PM [facility] Platelet Count 250 150 - 420 x10E9/L 08/02/2024 5:22 PM [facility] MPV 13.0(H) 7.8 - 11.4 fL 08/02/2024 5:22 PM [facility] Neutrophil % 68.1 41.0 - 74.0 % 08/02/2024 5:22 PM [facility] Lymphocyte % 22.2 17.0 - 47.0 % 08/02/2024 5:22 PM [facility] Monocyte % 6.8 3.0 - 11.0 % 08/02/2024 5:22 PM [facility] Eosinophil % 2.3 0.0 - 7.0 % 08/02/2024 5:22 PM [facility] Basophil % 0.4 0.0 - 1.6 % 08/02/2024 5:22 PM [facility] Immature Granulocytes % 0.2 0.0 - 1.0 % 08/02/2024 5:22 PM [facility] Neutrophil Absolute 5.70 1.60 - 7.50 x10E9/L 08/02/2024 5:22 PM [facility] Lymphocyte Absolute 1.86 1.00 - 4.40 x10E9/L 08/02/2024 5:22 PM [facility] Monocyte Absolute 0.57 0.15 - 1.00 x10E9/L 08/02/2024 5:22 PM [facility] Eosinophil Absolute 0.19 0.00 - 0.60 x10E9/L 08/02/2024 5:22 PM [facility] Basophil Absolute 0.03 0.00 - 0.13 x10E9/L 08/02/2024 5:22 PM [facility] Blood BLOOD SPECIMEN / Unknown Venipuncture / Unknown 08/02/2024 5:08 PM [facility] 08/02/2024 5:14 PM [facility] Elmo Johnson MD LAB - HEMATOLOGY ORD ERABLES [facility] [address] [place] [address], [facility] [phone] * (ABNORMAL) COMPREHENSIVE METABOLIC PANEL (08/02/2024 5:08 PM [facility]) Only the most recent of6 resultswithin the time period is included. BUN 14 7 - 26 mg/dL 08/02/2024 5:44 PM [facility] Creatinine 0.57(L) 0.71 - 1.16 mg/dL 08/02/2024 5:44 PM [facility] Sodium 140 136 - 145 mmol/L 08/02/2024 5:44 PM [facility] Potassium 4.5 3.5 - 4.5 mmol/L 08/02/2024 5:44 PM [facility] Chloride 105 98 - 107 mmol/L 08/02/2024 5:44 PM [facility] CO2 25 22 - 29 mmol/L 08/02/2024 5:44 PM [facility] Glucose 102(H) 70 - 99 mg/dL 08/02/2024 5:44 PM [facility] Calcium 9.6 8.4 - 10.2 mg/dL 08/02/2024 5:44 PM [facility] Protein Total 7.6 6.0 - 8.3 g/dL 08/02/2024 5:44 PM [facility] Albumin 3.8 3.4 - 5.0 g/dL 08/02/2024 5:44 PM [facility] Bilirubin Total 0.4 0.2 - 1.2 mg/dL 08/02/2024 5:44 PM [facility] Alkaline Phosphatase 94 40 - 150 U/L 08/02/2024 5:44 PM [facility] ALT 14 5 - 55 U/L 08/02/2024 5:44 PM [facility] AST 25 5 - 34 U/L 08/02/2024 5:44 PM [facility] Anion Gap 10 6 - 16 08/02/2024 5:44 PM [facility] BUN/Creatinine Ratio 25(H) 7 - 23 08/02/2024 5:44 PM [facility] Osmolality Calculated 291 275 - 295 mOsm/kg 08/02/2024 5:44 PM [facility] Albumin/Globulin Ratio 1.0(L) 1.1 - 2.3 08/02/2024 5:44 PM [facility] eGFR by CKD-EPI >90 >=90 mL/min/1.7 3 m2 08/02/2024 5:44 PM [facility] Blood BLOOD SPECIMEN / Unknown Venipuncture / Unknown 08/02/2024 5:08 PM [facility] 08/02/2024 5:14 PM [facility] Elmo Johnson MD LAB - CHEMISTRY [facility] Performing Organization Address City/[facility]/ZIP Co de Phone Number [address] [address], [facility] [phone] * LIPASE BLOOD (08/02/2024 5:08 PM [facility]) Only the most recent of5 resultswithin the time period is included. Lipase 18 8 - 78 U/L 08/02/2024 5:44 PM [facility] Blood BLOOD SPECIMEN / Unknown Venipuncture / Unknown 08/02/2024 5:08 PM [facility] 08/02/2024 5:14 PM [facility] Narrative [facility] - 08/02/2024 5:44 PM [facility] Lipase results from the [employer] Alinity analyzer may not be comparable with other methodologies. Elmo Johnson MD LAB - CHEMISTRY [facility] Performing Organization Address [facility]/ZIP Co de Phone Number [address] [address], [place] [phone] * TROPONIN-I HIGH SENSITIVE BASELINE + 1HR (07/27/2024 6:26 PM [facility]) Only the most recent of2 resultswithin the time period is included. Troponin I High Sensitive 5 <=35 ng/L 07/27/2024 7:09 PM [facility] Blood BLOOD SPECIMEN / Unknown Venipuncture / Unknown 07/27/2024 6:26 PM [facility] 07/27/2024 6:37 PM [facility] Serjio Vilchis MD LAB - CHEMISTRY [facility] Performing Organization Address City/[facility]/ZIP Co de Phone Number [address] [phone] [phone] * EKG 12-LEAD (07/27/2024 5:34 PM [facility]) Ventricular Rate 84 BPM [facility] MUSE Atrial Rate 84 BPM [facility] MUSE P-R Interval 160 ms [facility] QRS Duration ms 76 ms [facility] MUSE Q-T Interval ms 364 ms [facility] MUSE QTC Calculation (Bezet) 430 ms SL MUSE Calculated P Goltry 49 degrees SL MUSE Calculated R Goltry -25 degrees SL MUSE Calculated T Goltry 56 degrees [facility] MUSE Interpretation EKG NORMAL SINUS RHYTHM SEPTAL INFARCT , AGE UNDETERMINED INFERIOR INFARCT , AGE UNDETERMINED ABNORMAL ECG WHEN COMPARED WITH ECG OF 19-FEB-2024 17:27, SEPTAL INFARCT IS NOW PRESENT INFERIOR INFARCT IS NOW PRESENT Confirmed by MD ABENA, CLEMENTE ([id number]) on 07/30/2024 2:44:30 PM [facility] 07/27/2024 5:34 PM [facility] 07/30/2024 2:44 PM [facility] Serjio Vilchis MD ECG ORDERABLES [facility] M[facility] * PATHOLOGY TISSUE (07/18/2024 4:27 PM [facility]) Case Report Surgical Pathology Report Case: [id number] Authorizing Provider: Clifton Trinh, Collected: 07/18/2024 04:27 PM Ordering Location: [facility] ENDOSCOPY Received: 07/19/2024 10:00 AM Pathologist: Mara Pascual MD Specimen: Gastric, Gastric Antrum Biopsies 07/20/2024 3:[address] [facility] PATHOLOGY LAB Final Diagnosis Stomach, antrum, biopsy (A): - Superficial erosion in a background of reactive gastropathy, SEE COMMENT 07/20/2024 3:[address] [facility] PATH[facility]Y LAB Microscopic Description and Comment [...] true H. pylori infection. 07/20/2024 3:[address] [facility] Clinical History The patient is a 64-year-old man with suspected upper gastrointestinal bleeding and melena. Operative procedure/findings: EGD - small esophageal diverticulum; benign-appearing intrinsic stenosis at the proximal and distal esophagus, dilated; broad irregular area of mucosa along the lesser curvature with superficial erosion, biopsied 07/20/2024 3:[address] [facility] PATH[facility] LAB Gross Description The requisition and specimen(s) are identified with the patient's name, Bi Tabor. Received in formalin, specimen A , are four marie-pink tissue fragments, 0.1-0.3 cm, 0.4 x 0.3 x 0.1 cm in aggregate , submitted in toto in cassette A1. The two smallest fragments are friable and may not survive processing. IKD 07/20/2024 3:[address] [facility] PATH[facility]Y LAB Pathologist Location at [facility] 07/20/2024 3:[address] [facility] PATH[facility] LAB Disclaimer The performance characteristics of all immunohistochemical and indirect immunofluorescence stains (if any) cited in this report were determined by the Histopathology Laboratory of [facility]. Some of these tests were developed [...] the attending (teaching) pathologist. 07/20/2024 3:[address] [facility] LAB Embedded Images 07/20/2024 3:[address] [facility] Biopsy, NOS GASTRIC CONTENTS SPECIMEN / Unknown 07/18/2024 4:27 PM [facility] 07/19/2024 10:00 AM [facility] Comment:Pre-op diagnosis: Coffee ground emesis [K92.0] Clifton Alejandra MD LAB - PATHOL OGY/CYTOLOGY ORDERABLES [facility] [address] [place] [address], [facility] [phone] * EGD (07/18/2024 3:52 PM [facility]) Report Endoscopy POC Endoscopy Department Report __ [...] entire procedure. Procedure Code(s): --- Professional --- 20621, Esophagogastroduode noscopy, flexible, transoral; with biopsy, single or multiple Diagnosis Code(s): --- Professional --- K31.89, Other diseases of stomach and duodenum K92.1, Melena (includes Hematochezia) CPT copyright 2021 [employer]. All rights reserved. The codes documented in this report are preliminary and upon electromechanical equipment assembler review may be revised to meet current compliance requirements. Clifton Alejandra MD 07/18/2024 4:45:03 PM Note Initiated On: 07/18/2024 3:52 PM Number of Addenda: [address] [address] [facility] 07/18/2024 3:52 PM [facility] Aaron Delgado III, MD GI PROCEDURE OR DERABLES Performing Organization Address City/[facility]/ZIP Co de Phone Number [facility] * PHOSPHORUS BLOOD (07/18/2024 8:07 AM [facility]) Only the most recent of2 resultswithin the time period is included. Phosphorus 4.2 2.8 - 5.1 mg/dL 07/18/2024 8:52 AM [facility] Blood BLOOD SPECIMEN / Unknown Lab Venipuncture / Unknown 07/18/2024 8:07 AM [facility] 07/18/2024 8:24 AM [facility] Marianne Daniels MD LAB - CHEMISTRY [facility] [address] [address], [facility] [phone] * VALPROIC ACID LEVEL (07/18/2024 8:07 AM [facility]) Valproic Acid Total 74 50 - 100 ug/mL 07/18/2024 8:41 AM [facility] Blood BLOOD SPECIMEN / Unknown Lab Venipuncture / Unknown 07/18/2024 8:07 AM [facility] 07/18/2024 8:19 AM [facility] Marianne Daniels MD LAB - CHEMISTRY [facility] Performing Organization Address [facility]/ZIP Co de Phone Number [address] [address], [facility] [phone] * CARDIAC EKG ORDER (07/17/2024 1:44 PM [facility]) Narrative 07/17/2024 1:44 PM [facility] Ordered by an unspecified provider. Scanned Document CARDIAC SERVICES ORD ERABLES * (ABNORMAL) URINE MICROSCOPIC ONLY REFLEX TO CULTURE (07/17/2024 9:58 AM [facility]) Reflex Status Culture to follow 07/17/2024 10:42 AM [facility] WBC UA 21-50(A) None Seen, 0-5 /HPF 07/17/2024 10:42 AM [facility] Bacteria UA 1+(A) None /HPF 07/17/2024 10:42 AM [facility] Squamous Epithelial Cells UA None Seen None Seen, 0-2, 3-5 /HPF 07/17/2024 10:42 AM [facility] Urine URINE SPECIMEN OBTAINED BY CLEAN CATCH PROCEDURE / Unknown Collection / Unknown 07/17/2024 9:58 AM [facility] 07/17/2024 10:02 AM [facility] Narrative [facility] - 07/17/2024 10:42 AM [facility] Quan Gan MD LAB - URINALYSIS ORD ERABLES Performing Organization Address [facility]/ZIP Co de Phone Number [facility] [address] [place] [address], [facility] [phone] * (ABNORMAL) URINALYSIS REFLEX MICROSCOPIC REFLEX CULTURE (07/17/2024 9:58 AM [facility]) Only the most recent of2 resultswithin the time period is included. Color UA Yellow Straw, Yellow 07/17/2024 10:36 AM [facility] Clarity UA Slt Cloudy(A) Clear 07/17/2024 10:36 AM [facility] Specific Vernon UA 1.027 1.005 - 1.030 07/17/2024 10:36 AM [facility] pH UA 8.0 5.0 - 8.0 pH 07/17/2024 10:36 AM [facility] Protein UA 1+(A) Negative 07/17/2024 10:36 AM [facility] Glucose UA Negative Negative 07/17/2024 10:36 AM [facility] Ketone UA Negative Negative 07/17/2024 10:36 AM [facility] Bilirubin UA Negative Negative 07/17/2024 10:36 AM [facility] Blood UA Negative Negative 07/17/2024 10:36 AM [facility] Nitrite UA Positive(A) Negative 07/17/2024 10:36 AM [facility] Leukocyte Esterase 1+(A) Negative 07/17/2024 10:36 AM [facility] Urobilinogen UA 4.0(A) Negative mg/dL 07/17/2024 10:36 AM [facility] Urine URINE SPECIMEN OBTAINED BY CLEAN CATCH PROCEDURE / Unknown Collection / Unknown 07/17/2024 9:58 AM [facility] 07/17/2024 10:02 AM [facility] Narrative [facility] - 07/17/2024 10:36 AM [facility] Quan Gan MD LAB - URINALYSIS ORD ERABLES [facility] [address] [place] [address], [facility] [phone] * TROPONIN-I HIGH SENSITIVE REFLEX 1HOUR (07/17/2024 12:03 AM [facility]) Troponin I High Sensitive 7 <=35 ng/L 07/17/2024 12:48 AM [facility] Delta Troponin I HS 0 <6 ng/L 07/17/2024 12:48 AM [facility] Blood BLOOD SPECIMEN / Unknown Venipuncture / Unknown 07/17/2024 12:03 AM [facility] 07/17/2024 12:11 AM [facility] Quan Gan MD LAB - CHEMISTRY ORDE GATITO [facility] [address] [place] [address], [facility] [phone] * SARS-COV-2 (COVID-19) FLU A/B RSV PCR RAPID (07/17/2024 12:03 AM [facility]) COVID-19 PCR Not detected Not detected 07/17/19 12:51 AM [facility] Influenza A PCR Not detected Not detected 07/17/2024 12:51 AM [facility] Influenza B PCR Not detected Not detected 07/17/2024 12:51 AM [facility] RSV PCR Not detected Not detected 07/17/2024 12:51 AM [facility] Microbiology SPECIMEN FROM NASOPHARYNGEAL STRUCTURE / Unknown Collection / Unknown 07/17/2024 12:03 AM [facility] 07/17/2024 12:11 AM [facility] Narrative [facility] - 07/17/2024 12:51 AM [facility] This nucleic acid amplification assay has been [...] this EUA assay are available upon request. Qaun Gan MD LAB - MICROBIOLOGY O RDERABLES Performing Organization Address [facility]/ZIP Co de Phone Number [facility] [address] [place] [address], [facility] [phone] * CT Abdomen Pelvis W Contrast (07/16/2024 11:41 PM [facility]) Anatomical Region Laterality Modality Abdomen, Pelvis Computed Tomogra phy 07/17/2024 12:0 2 AM [facility] Impressions 07/17/2024 8:29 AM [facility] Impression: 1.No acute process identified in the [...] > Dictated by Ashu Welch MD (residential sales representative). I, Bebo Kuo MD have personally reviewed and interpreted this examination/study. > Interpreting Provider: Bebo Kuo MD on 07/17/2024 8:29 AM Narrative 07/17/2024 8:29 AM [facility] PROCEDURE: CT ABDOMEN PELVIS W CONTRAST, DATE/TIME [...] > Dictated by Ashu Welch MD (residential sales representative). I, Bebo Kuo MD have personally reviewed and interpreted this examination/study. > Interpreting Provider: Bebo Kuo MD on 58:29 AM [address] MD [address] ORDERABLES * LACTIC ACID BLOOD REFLEX TO REPEAT (07/16/2024 10:44 PM [facility]) [facility] Lactic Acid-Stat 1.9 <=2.0 mmol/L 07/16/2024 11:19 PM [facility] Blood BLOOD SPECIMEN / Unknown Venipuncture / Unknown 07/16/2024 10:44 PM [facility] 07/16/2024 10:52 PM [facility] Quan Gan MD LAB - CHEMISTRY [facility] [address] [address], [facility] [phone] * CK BLOOD (07/16/2024 10:44 PM [facility]) [facility] CK Total 92 30 - 200 U/L 07/16/2024 11:23 PM [facility] Blood BLOOD SPECIMEN / Unknown Venipuncture / Unknown 07/16/2024 10:44 PM [facility] 07/16/2024 10:52 PM [facility] Quan Gan MD LAB - CHEMISTRY [facility] [address] [address], [facility] [phone] * (ABNORMAL) BASIC METABOLIC PANEL (CALCIUM TOTAL) (06/08/2024 4:11 AM [facility]) [facility] BUN 14 7 - 26 mg/dL 06/08/2024 4:58 AM [facility] Creatinine 0.57(L) 0.71 - 1.16 mg/dL 06/08/2024 4:58 AM [facility] Sodium 140 136 - 145 mmol/L 06/08/2024 4:58 AM [facility] Potassium 3.9 3.5 - 4.5 mmol/L 06/08/2024 4:58 AM [facility] Chloride 108(H) 98 - 107 mmol/L 06/08/2024 4:58 AM [facility] CO2 27 22 - 29 mmol/L 06/08/2024 4:58 AM [facility] Glucose 105(H) 70 - 99 mg/dL 06/08/2024 4:58 AM [facility] Calcium 9.3 8.4 - 10.2 mg/dL 06/08/2024 4:58 AM [facility] Anion Gap 5(L) 6 - 16 06/08/2024 4:58 AM [facility] BUN/Creatinine Ratio 25(H) 7 - 23 06/08/2024 4:58 AM [facility] Osmolality Calculated 291 275 - 295 mOsm/kg 06/08/2024 4:58 AM [facility] eGFR by CKD-EPI >90 >=90 mL/min/1.7 3 m2 06/08/2024 4:58 AM [facility] Blood BLOOD SPECIMEN / Unknown Venipuncture / Unknown 06/08/2024 4:11 AM [facility] 06/08/2024 4:18 AM [facility] Lilliam Isaacs WORKSHOP MANAGER-INDEPENDENT MARKETING CONSULTANT LAB - CHEMISTRY ORDERABLES Performing Organization Address [facility] Co de Phone Number [facility] [address] [place] [phone] [phone] * (ABNORMAL) LIPID PROFILE (06/08/2024 4:11 AM [facility]) Cholesterol Total 136 <200 mg/dL 06/08/2024 4:49 AM [facility] HDL 35(L) >40 mg/dL 06/08/2024 4:49 AM [facility] Comment: ATP III Classification of HDL Cholesterol: <40 mg/dL: Considered a major risk factor. >60 mg/dL: Considered a negative risk factor. LDL Calculated 88 <100 mg/dL 06/08/2024 4:49 AM [facility] Comment: ATP III Classification of LDL Cholesterol: <100 mg/dL: Optimal 100 - 129 mg/dL: Near Optimal/Above Optimal 130 - 159 mg/dL: Borderline High 160 - 189 mg/dL: High >190 mg/dL: Very High Triglycerides 65 <150 mg/dL 06/08/2024 4:49 AM [facility] Comment: ATP III Classification of Triglycerides: <150 mg/dL: Normal 150 - 199 mg/dL: Borderline High 200 - 400 mg/dL: High >500 mg/dL: Very High Blood BLOOD SPECIMEN / Unknown Venipuncture / Unknown 06/08/2024 4:11 AM [facility] 06/08/2024 4:18 AM [facility] Conradkatarina Isaacs WORKSHOP MANAGER-INDEPENDENT MARKETING CONSULTANT LAB - CHEMISTRY ORDERABLES Performing Organization Address [facility] Co de Phone Number [address] [address], [facility] [phone] * HEPATITIS C AB SCREEN RFLX NAAT QUANT (09/01/2022 2:05 AM CDT) Hepatitis C Antibody Non-react phan Non-reac tive 09/01/2022 3:09 AM CDT [facility] Comment:Hepatitis C Antibody screen indicates [...] [facility] Performing Organization Address [facility] Co de Phone Number [address] [address], [facility] [phone] * HIV-1 HIV-2 ANTIBODY + HIV P24 AG PANEL (09/01/2022 2:05 AM CDT) HIV Antigen/Antibod y 1 & 2 Non-reacti ve Non-react phan 09/01/2022 3:09 AM CDT [facility] Comment:No Laboratory eviden ce of HIV infection. 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 Source: [facility]. 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 John Seipel Infection Prevention 09/18/2022 MRSA 06/11/2023 06/11/2023 Advance Directives Documents on File Type Date Recorded Patient Tallow Maker Expl anation Adv Directive/Living Will/POA 07/19/2019 4:10 [...] 10:09 PM 09/09/2023 7:47 PM Care Teams Tow Bar Driver Relationship Specialty Start Date End Date Dany Monsivais MD [address] [place] [phone] PCP - General Family Medicine 11/18/23 Elizabeth Sullivan, RN Philosophy Faculty 10/14/17
--- OUTSIDE RECORDS SUMMARY | 2024-08-15 02:37 | XMS_ITS | Encounter Summary ---
Author Organization [facility] - [facility] Address [address] [place] [address] Care Team Providers Care Cctv Technician Name Role Phone Frank Toure MD Unavailable Joyce Luevano NP Primary Care Provider Unavaila Marielena Adame MD Primary Care Provider [phone] Encounter Details Date Type Department Care Team (Late st Contact Info) Description 03/08/2022 Valutaot Message Enc [facility] Family Medicine - [address] [phone] Joyce Luevano, BOUCHRA Vascular doctor [...] on filedocumented in this encounter Care Teams Cctv Technician Relationship Specialty Start Date End Date Joyce Luevano NP [address] [place] [address] PCP - General NURSE PRACTITIONER 01/14/20 10/26/23 Marielena Smallwood MD [address] [place] [id number] PCP - General FAMILY PRACTICE 10/27/23 Frank Toure MD [address] [place] [address] [employer] Family Educator CARDIOVASCULAR DISEASE 05/30/16 documented as of this encounter
--- OUTSIDE RECORDS SUMMARY | 2024-08-15 02:37 | XMS_ITS | Encounter Summary ---
Author Organization [facility] - [facility] Address [address] [place] [address] Care Team Providers Care Licensed Life And Health Agent Name Role Phone Frank Toure MD Unavailable Joyce Luevano NP Primary Care Provider Unavaila Marielena Adame MD Primary Care Provider [phone] Encounter Details Date Type Department Care Team (Late st Contact Info) Description 02/23/2022 VISEOt Message Enc [facility] Family Medicine - [address] [address] Joyce Luevano, BUSINESS SUPPORT [employer] Social History Tobacco Use Types [...] 11:25 AM CDT Message sent through other [employer] chart message * Yonatan Rodriguez RN - 02/23/2022 10:24 AM CDT Please see note. Thanks documented in this encounter Plan of Treatment Not on file documented as of this encounter Visit Diagnoses Not on filedocumented in this encounter Care Teams Licensed Life And Health Agent Relationship Specialty Start Date End Date Joyce Luevano NP [address] [place] [address] PCP - General NURSE PRACTITIONER 01/14/20 10/26/23 Marielena Smallwood MD [address] [place] [id number] PCP - General FAMILY PRACTICE 10/27/23 Frank Toure MD [address] [place] [address] [employer] Pair[employer] Machine Operator CARDIOVASCULAR DISEASE 05/30/16 documented as of this encounter
--- OUTSIDE RECORDS SUMMARY | 2024-08-15 02:37 | XMS_ITS | Encounter Summary ---
Author Organization [facility] - [facility] Address [address] [place] [address] Care Team Providers Care Improvement Leader Name Role Phone Frank Toure MD Unavailable Joyce Luevano NP Primary Care Provider Unavaila Marielena Adame MD Primary Care Provider [phone] Encounter Details Date Type Department Care Team (Late st Contact Info) Description 06/16/2022 MyCSm[employer]er Technologiest Message Enc [facility] Medical Group Family Medicine - [address] [address] Joyce Luevano, SWITCH ADJUSTER [employer] Social History Tobacco Use Types [...] Coronavirus/COVID-19? No / Unsure 06/17/2022 10:38 AM LABORER CHEMICAL PROCESSING documented as of this encounter Functional Status [...] in writing. She states to fax to [phone]. Will send letter to them. [employer] * Yonatan Rodriguez RN - 06/16/2022 12:50 PM CST Please see note. Thanks [employer] documented in this encounter Plan of Treatment Not on file documented as of this encounter Visit Diagnoses Not on filedocumented in this encounter Care Teams Improvement Leader Relationship Specialty Start Date End Date Joyce Luevano NP [address] [place] [id number] PCP - General NURSE PRACTITIONER 01/14/20 10/26/23 Marielena Smallwood MD [address] [place] [address] PCP - General FAMILY PRACTICE 10/27/23 Frank Toure MD [address] [place] [address] [employer] Machine Operator CARDIOVASCULAR DISEASE 05/30/16 documented as of this encounter
--- NOTE | 2024-08-15 03:08 | ED.GENADULT ---
HPI - General Adult General Chief complaint: Unspecified Stated complaint: FINGER PAIN Time Seen by Provider: 08/15/24 02:33 History of Present Illness HPI narrative: Patient is 64-year-old gentleman presents emergency department with chief complaint of right index finger pain. Patient reports that he has had pain in his finger reports no injury patient is resident of [facility] and originally pulled out his trach this evening was replaced the patient decided to be transported for finger pain Related Data Home Medications ?Medication ?Instructions ?Recorded ?Confirmed ?Last Taken ?Type metoprolol tartrate 25 mg tablet 25 mg feeding tube BID 12/18/22 03/30/24 Unknown History polyethylene glycol 3350 17 17 g feeding tube DAILY PRN 12/18/22 03/30/24 Unknown History gram/dose oral powder Constipation bisacodyl 10 mg rectal suppository 10 mg RECTAL DAILY PRN Constipation 02/11/23 03/30/24 Unknown History sennosides 8.6 mg tablet (senna) 8.6 mg feeding tube BID 02/11/23 03/30/24 Unknown History guaifenesin 100 mg/5 mL oral liquid 300 mg feeding tube BID PRN Cough 07/08/23 03/30/24 Unknown History magnesium hydroxide 400 mg/5 mL 30 ml PO HS PRN Constipation 12/13/23 03/30/24 Unknown History oral suspension (Milk of Magnesia) artificial tears solution eye drops 1 drp ophthalmic (eye) PRN PRN Dry 02/10/24 03/30/24 Unknown History Eye(S) atorvastatin 40 mg tablet 40 mg PO HS 02/10/24 03/30/24 Unknown History calcium carbonate 500 mg/5 mL (as 1,250 mg PO Q6H PRN Heartburn 02/10/24 03/30/24 Unknown History calcium carb 1,250 mg/5 mL) oral suspension clobazam 10 mg tablet 10 mg feeding tube DAILY 02/10/24 03/30/24 Unknown History famotidine 20 mg tablet 20 mg feeding tube BID 02/10/24 03/30/24 Unknown History folic acid 1 mg tablet 1 mg feeding tube DAILY 02/10/24 03/30/24 Unknown History ipratropium 0.5 mg-albuterol 3 mg 3 ml inhalation Q6H PRN Shortness 02/10/24 03/30/24 Unknown History (2.5 mg base)/3 mL nebulization Of Breath soln lacosamide 10 mg/mL oral solution 200 mg feeding tube BID 02/10/24 03/30/24 Unknown History levetiracetam 100 mg/mL oral 1,500 mg feeding tube BID 02/10/24 03/30/24 Unknown History solution magnesium citrate (Citroma oral 296 ml PO DAILY PRN Constipation 02/10/24 03/30/24 Unknown History solution) thiamine HCl (vitamin B1) 100 mg 100 mg feeding tube DAILY 02/10/24 03/30/24 Unknown History tablet valproic acid (as sodium salt) 250 1,250 mg feeding tube QID 02/10/24 03/30/24 Unknown History mg/5 mL oral solution acetaminophen 650 mg/20.3 mL oral 650 mg feeding tube Q4H PRN Pain 03/30/24 03/30/24 Unknown History suspension (Scale Score 1-3) apixaban 5 mg tablet (Eliquis) 5 mg feeding tube BID 03/30/24 03/30/24 Unknown History aspirin 81 mg chewable tablet 81 mg feeding tube DAILY 03/30/24 03/30/24 Unknown History Allergies Allergy/AdvReac Type Severity Reaction Status Date / Time clonazepam Allergy Unknown Unknown Verified 08/09/24 08:25 Review of Systems Review of Systems: A 10 system review of systems was completed on the patient and is negative except for what is stated in the HPI. Nursing and ancillary documentation was reviewed. [facility] Past Medical History Medical History Deep venous thrombosis of upper extremity Benign prostatic hyperplasia Cerebrovascular accident Residual expressive aphasia, dysphagia, and left-sided weakness. Chronic obstructive pulmonary disease Esophageal diverticulum Gastroparesis Iron deficiency anemia Vascular dementia with psychotic disturbance Seizure disorder Surgical History Surgical History History of gastrostomy tube placement History of tracheostomy History of left above knee amputation Family History Family History Other Unknown family medical history Social History Social History Social History: Surrogate medical decision maker: Adriane Hilliard, sibling. Code status: Full code. 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 HEAD: Normocephalic, atraumatic. EYES: PERRLA and EOMI. ENT: Nares clear, no rhinorrhea or epistaxis. Mucous membranes moist. NECK: Supple. Tracheostomy in place CHEST: Clear to auscultation. No respiratory distress. HEART: Regular rate and rhythm. No murmur heard. Normal peripheral pulses. ABDOMEN: Soft, nontender, nondistended, normal active bowel sounds. EXTREMITIES: Normal range of motion. No edema. No deformity noted to the right index finger good capillary refill SKIN: Warm, dry, no rash. NEURO: No focal deficits. Alert and oriented to baseline. PSYCH: Normal mood and affect. Course Vital Signs Vital signs: Vital Signs Temperature 36.3 C L 08/15/24 02:27 Pulse Rate 80 08/15/24 02:27 Respiratory Rate 20 08/15/24 02:27 Blood Pressure 150/88 H 08/15/24 02:27 Pulse Oximetry 96 08/15/24 02:27 Oxygen Delivery Room Air 08/15/24 02:27 Temperature 36.3 C L 08/15/24 02:41 Pulse Rate 76 08/15/24 02:41 Respiratory Rate 20 08/15/24 02:41 Blood Pressure 150/88 H 08/15/24 02:41 Pulse Oximetry 97 08/15/24 02:41 Oxygen Delivery Room Air 08/15/24 02:27 Medical Decision Making MDM Narrative Medical decision making narrative: Differential diagnosis includes fracture, contusion, Plain film x-rays were obtained of the right index finger that showed no evidence of fracture there is no sign of vascular compromise the patient be discharged back to the nursing facility Vital Signs Vital Signs: Vital Signs Temperature 36.3 C L 08/15/24 02:27 Pulse Rate 80 08/15/24 02:27 Respiratory Rate 20 08/15/24 02:27 Blood Pressure 150/88 H 08/15/24 02:27 Pulse Oximetry 96 08/15/24 02:27 Oxygen Delivery Room Air 08/15/24 02:27 Temperature 36.3 C L 08/15/24 02:41 Pulse Rate 76 08/15/24 02:41 Respiratory Rate 20 08/15/24 02:41 Blood Pressure 150/88 H 08/15/24 02:41 Pulse Oximetry 97 08/15/24 02:41 Oxygen Delivery Room Air 08/15/24 02:27 Discharge Plan Discharge Clinical Impression: Finger pain, right Patient Disposition: NH Usp/Asst Living Condition: Stable Instructions: Antibiotic Form, Finger Sprain (ED) Patient Language: Japanese Prescriptions: No Action bisacodyl 10 mg Suppository 10 mg RECTAL DAILY PRN (Reason: Constipation) Rx Instructions: if no results for MOM sennosides [senna] 8.6 mg Tablet 8.6 mg feeding tube BID guaifenesin 100 mg/5 mL liquid 300 mg feeding tube BID PRN (Reason: Cough) magnesium hydroxide [Milk of Magnesia] 400 mg/5 mL Suspension 30 ml PO HS PRN (Reason: Constipation) Rx Instructions: If no BM in 3 days polyethylene glycol 3350 17 gram/dose powder 17 g feeding tube DAILY PRN (Reason: Constipation) metoprolol tartrate 25 mg tablet 25 mg feeding tube BID atorvastatin 40 mg tablet 40 mg PO HS ipratropium-albuterol 0.5 mg-3 mg(2.5 mg base)/3 mL solution for nebulization 3 ml INHALATION Q6H PRN (Reason: Shortness Of Breath) artificial tears solution Drops 1 drp OPHTHALMIC (EYE) PRN PRN (Reason: Dry Eye(S)) Rx Instructions: instill 1 drop per eye as needed for dry eye thiamine HCl (vitamin B1) 100 mg Tablet 100 mg feeding tube DAILY famotidine 20 mg tablet 20 mg feeding tube BID valproic acid (as sodium salt) 250 mg/5 mL solution 1,250 mg feeding tube QID magnesium citrate [Citroma] Solution 296 ml PO DAILY PRN (Reason: Constipation) Rx Instructions: if no results from enema folic acid 1 mg tablet 1 mg feeding tube DAILY levetiracetam 100 mg/mL solution 1,500 mg feeding tube BID calcium carbonate 500 mg/5 mL (1,250 mg/5 mL) Suspension 1,250 mg PO Q6H PRN (Reason: Heartburn) lacosamide 10 mg/mL solution 200 mg feeding tube BID clobazam 10 mg tablet 10 mg feeding tube DAILY Eliquis 5 mg Tablet 5 mg feeding tube BID aspirin 81 mg Tablet,Chewable 81 mg feeding tube DAILY acetaminophen 650 mg/20.3 mL Suspension 650 mg feeding tube Q4H PRN (Reason: Pain (Scale Score 1-3)) meropenem 1 gram Recon Soln 1 g IV Q8H Qty: 8 0RF Follow-up/Referrals: Lauro,MD Burke [Primary Care Provider] - Time of Disposition: 03:13
--- NOTE | 2024-08-15 09:38 | PC.NURSE ---
[facility] HERE FOR PT TRANSPORT BACK TO [facility].
== END 2024-08-15 09:40 ==
PROVIDERS: Emergency Provider Emergency Medicine; PCP Internal Medicine
DX: M79.644 Pain in right finger(s) (principal); Z86.718 Personal history of other venous thrombosis and embolism; N40.0 Benign prostatic hyperplasia without lower urinary tract symptoms; J44.9 Chronic obstructive pulmonary disease, unspecified; D64.9 Anemia, unspecified; F03.90 Unspecified dementia, unspecified severity, without behavioral disturbance, psychotic disturbance, mood disturbance, and anxiety; G40.909 Epilepsy, unspecified, not intractable, without status epilepticus; I69.920 Aphasia following unspecified cerebrovascular disease
CPT/HCPCS: 73140; 99283

== ENCOUNTER 2024-08-19 23:55 | Emergency (ER) | payer OTHER, SELFPAY ==
--- NOTE | ~2024-08-19 | XR_ITS ---
EXAMINATION: XR chest 1V portable DATE: 08/20/2024 00:31 INDICATION: Coarse breath sounds. TECHNIQUE: A single frontal view of the chest was obtained. COMPARISON: Chest single view 07/13/2024, CT abdomen and pelvis 06/07/2024 FINDINGS: There are airspace opacities in the lower lung zones. No pleural effusion or pneumothorax. The heart size is normal. There are prominent pericardial fat pads. There is a tracheostomy tube in e xpected position. A gastrostomy tube is noted. IMPRESSION: 1. Airspace opacities in the lower lung zones, consistent with atelectasis versus pneumonia. Reviewed, dictated and finalized at location A. IMPRESSION: 1. Airspace opacities in the lower lung zones, consistent with atelectasis vers us pneumonia.
[2024-08-19 23:56] VITALS: BP 134/84; PULSE 72; RESP 19; TEMP 36.7; O2SAT 100
[2024-08-20] VITALS (9 sets, daily range): BP systolic 128–137; BP diastolic 60–81; PULSE 72–74; RESP 19–22; O2SAT 94–100
--- NOTE | 2024-08-20 00:21 | ED_ITS ---
HPI - SOB/Dyspnea General Chief Complaint: Shortness of Breath/Dyspnea Stated Complaint: Dislodged trach, low O2 sats, copious secretions Time Seen by Provider: 08/20/24 00:05 Source: patient, EMS and RN notes reviewed Mode of arrival: EMS History of Present Illness HPI Narrative: Patient presents after report of a dislodged trach. EMS was able to replace it but noted that he initially had oxygen saturation of 92% and seemed to have a lot of secretions with coarse breath sounds. Patient is able to shake his head yes or no to answer questions. He denies any chest pain, headache, abdominal pain. No shortness of breath. He does note that he has had some increased secretions. Follows commands. Related Data Home Medications ?Medication ?Instructions ?Recorded ?Confirmed ?Last Taken ?Type metoprolol tartrate 25 mg tablet 25 mg feeding tube BID 12/18/22 03/30/24 Unknown History polyethylene glycol 3350 17 17 g feeding tube DAILY PRN 12/18/22 03/30/24 Unknown History gram/dose oral powder Constipation bisacodyl 10 mg rectal suppository 10 mg RECTAL DAILY PRN Constipation 02/11/23 03/30/24 Unknown History sennosides 8.6 mg tablet (senna) 8.6 mg feeding tube BID 02/11/23 03/30/24 Unknown History guaifenesin 100 mg/5 mL oral liquid 300 mg feeding tube BID PRN Cough 07/08/23 03/30/24 Unknown History magnesium hydroxide 400 mg/5 mL 30 ml PO HS PRN Constipation 12/13/23 03/30/24 Unknown History oral suspension (Milk of Magnesia) artificial tears solution eye drops 1 drp ophthalmic (eye) PRN PRN Dry 02/10/24 03/30/24 Unknown History Eye(S) atorvastatin 40 mg tablet 40 mg PO HS 02/10/24 03/30/24 Unknown History calcium carbonate 500 mg/5 mL (as 1,250 mg PO Q6H PRN Heartburn 02/10/24 03/30/24 Unknown History calcium carb 1,250 mg/5 mL) oral suspension clobazam 10 mg tablet 10 mg feeding tube DAILY 02/10/24 03/30/24 Unknown History famotidine 20 mg tablet 20 mg feeding tube BID 02/10/24 03/30/24 Unknown History folic acid 1 mg tablet 1 mg feeding tube DAILY 02/10/24 03/30/24 Unknown History ipratropium 0.5 mg-albuterol 3 mg 3 ml inhalation Q6H PRN Shortness 02/10/24 03/30/24 Unknown History (2.5 mg base)/3 mL nebulization Of Breath soln lacosamide 10 mg/mL oral solution 200 mg feeding tube BID 02/10/24 03/30/24 Unknown History levetiracetam 100 mg/mL oral 1,500 mg feeding tube BID 02/10/24 03/30/24 Unknown History solution magnesium citrate (Citroma oral 296 ml PO DAILY PRN Constipation 02/10/24 03/30/24 Unknown History solution) thiamine HCl (vitamin B1) 100 mg 100 mg feeding tube DAILY 02/10/24 03/30/24 Unknown History tablet valproic acid (as sodium salt) 250 1,250 mg feeding tube QID 02/10/24 03/30/24 Unknown History mg/5 mL oral solution acetaminophen 650 mg/20.3 mL oral 650 mg feeding tube Q4H PRN Pain 03/30/24 03/30/24 Unknown History suspension (Scale Score 1-3) apixaban 5 mg tablet (Eliquis) 5 mg feeding tube BID 03/30/24 03/30/24 Unknown History aspirin 81 mg chewable tablet 81 mg feeding tube DAILY 03/30/24 03/30/24 Unknown History Allergies Allergy/AdvReac Type Severity Reaction Status Date / Time clonazepam Allergy Unknown Unknown Verified 08/20/24 06:49 [facility] Past Medical History Medical History Deep venous thrombosis of upper extremity Benign prostatic hyperplasia Cerebrovascular accident Residual expressive aphasia, dysphagia, and left-sided weakness. Chronic obstructive pulmonary disease Esophageal diverticulum Gastroparesis Iron deficiency anemia Vascular dementia with psychotic disturbance Seizure disorder Surgical History Surgical History History of gastrostomy tube placement History of tracheostomy History of left above knee amputation Family History Family History Other Unknown family medical history Social History Social History Social History: Surrogate medical decision maker: Adriane Hilliard, sibling. Code status: Full code. 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 HEAD: Normocephalic, atraumatic. EYES: Non injected, non icteric ENT: Nares clear, no rhinorrhea or epistaxis. NECK: Supple. Trach site in place, scant clear secretions around tracheostomy but otherwise inner cannula clear CHEST: No respiratory distress. Not tachypneic. Coarse bilateral breath sounds though possible component upper airway sounds transmissible HEART: Regular rate and rhythm. . ABDOMEN: Soft, nondistended. EXTREMITIES: No lower extremity edema in right leg which is in an offloading boot. Left AKA. SKIN: Warm, dry, no rash. NEURO: Alert and oriented. Answering simple questions by mouthing yes and no. Follows commands. PSYCH: Normal mood and affect. Course Vital Signs Vital signs: Vital Signs Temperature 98.1 F 08/19/24 23:56 Pulse Rate 72 08/19/24 23:56 Respiratory Rate 19 08/19/24 23:56 Blood Pressure 134/84 08/19/24 23:56 Pulse Oximetry 100 08/19/24 23:56 Oxygen Delivery Room Air 08/19/24 23:56 Temperature 98.1 F 08/19/24 23:56 Pulse Rate 74 08/20/24 04:47 Respiratory Rate 19 08/20/24 04:47 Blood Pressure 137/60 08/20/24 04:47 Pulse Oximetry 97 08/20/24 04:47 Oxygen Delivery High Flow Therapy with Trach Collar 08/20/24 02:21 Oxygen Flow Rate 35 08/20/24 02:21 Fraction of Inspired Oxygen 21 08/20/24 02:21 MDM - SOB/Dyspnea MDM Narrative Medical decision making narrative: Patient presents after trach became dislodged. It was replaced by EMS on scene but initially had oxygen saturation of 92% and he was noted to have a lot of secretions with report of rales. In the emergency department he is afebrile normal vital signs. He is saturating appropriately but given the concern for secretions and coarse breath sounds on auscultation, will proceed with further workup. Normal BMP. He has anemia as well as thrombocytopenia ; both are chronic/stable. No leukocytosis. Viral swab negative. Initial workup is unremarkable and the plan is for patient to be discharged back to facility. While awaiting transportation, patient does mouth to/communicate with the nurse that he is having some back pain. [place] ordered. Otherwise comfortable. While still awaiting transportation, chest x-ray is over-read by [place] radiologist who notes atelectasis versus pneumonia. Although patient is without a leukocytosis, out of an abundance of precaution will treat as a pneumonia. Patient given 1st dose of antibiotic in his feeding tube and the rest of the course as prescribed and nurse notes that she will convey this information to staff at facility in phone report as patient transported back. Differential Diagnosis Differential diagnosis: Likely community acquired pneumonia and other (Acute viral syndrome; less likely bacterial tracheitis) Lab Data Attestation: I reviewed the patient's lab results. 08/20/24 01:05 08/20/24 00:43 Labs: Lab Results 08/20/24 08/20/24 08/20/24 Range/Units 00:43 00:45 01:05 WBC 6.2 (4.5-10.0) K/mm3 RBC 4.01 L (4.6-6.20) M/mm3 Hgb 12.8 L (14.0-18.0) g/dL Hct 39.2 L (42.0-52.0) % MCV 97.8 (80-100) fl MCH 31.9 (26-34) pg MCHC 32.7 (32-36) g/dl RDW 13.0 (11.5-14.5) % Plt Count 128 L (150-375) k/mm3 MPV 12.5 H (7.4-10.4) fl Immature Gran % (Auto) 0.2 (0-0.5) % Neut % (Auto) 34.6 L (45.5-73.1) % Lymph % (Auto) 45.7 H (18.3-44.2) % [place] % (Auto) 11.2 H (2.6-8.5) % Eos % (Auto) 7.8 H (0-4.4) % Baso % (Auto) 0.5 (0.2-1.2) % Lymph # (Auto) 2.81 (0.9-3.2) K/mm3 [place] # (Auto) 0.7 H (0.1-0.6) K/mm3 Eos # (Auto) 0.5 H (0-0.3) K/mm3 Baso # (Auto) 0.0 (0.0-0.1) K/mm3 Abs Immat Gran (auto) 0.01 (0.00-0.031) K/mm3 Absolute Neuts (auto) 2.1 (1.3-6.7) K/mm3 Absolute Nucleated RBC 0.000 (0.0-0.012) K/mm3 Nucleated RBC % 0.0 (0.0-0.2) % Sodium 138 (137-145) mmol/L Potassium 4.3 (3.4-5.0) mmol/L Chloride 103 (98-107) mmol/L Carbon Dioxide 25 (22-30) mmol/L Anion Gap 10 (4-12) mmol/L BUN 14 D (9-20) mg/dL Creatinine 0.52 L (0.7-1.3) mg/dL Estim Creat Clear Calc 132 ml/min Estimated GFR > 60 (59 - ) Glucose 95 (65-110) mg/dL Calcium 9.5 (8.4-10.2) mg/dL Influenza A (RT-PCR) Negative (Negative) Influenza B (RT-PCR) Negative (Negative) RSV (RT-PCR) Negative (Negative) SARS-CoV-2 RNA (RT-PCR) Negative (Negative) Imaging Data Attestation: I personally reviewed and interpreted this imaging study as follows: My impression: Slight haziness but without clear infiltrate Radiologist's impression: X-ray chest x-ray one view stat rad: Tracheostomy tube terminates in good position IMPRESSION: 1. Airspace opacities in the lower lung zones, consistent with atelectasis versus pneumonia. Discharge Plan Discharge Clinical Impression: Increased tracheal secretions, Anemia, Thrombocytopenia, Encounter for attention to tracheostomy, Abnormal chest x-ray Patient Disposition: [facility] Living Condition: Stable Instructions: Antibiotic Form, Tracheostomy Care (ED), Anemia (ED), Thrombocytopenia (ED) Additional Instructions: Keep all appointments with care team including primary care physician/facility medical affairs manager. Return to the emergency department with any new or worsening symptoms. Continue taking all medications as prescribed. Patient Language: Luxembourger Prescriptions: New azithromycin 250 mg tablet 250 mg PO DAILY 4 Days Qty: 4 0RF Rx Instructions: start on day 2 of therapy (08/21/24); already received first dose 08/20/24 No Action bisacodyl 10 mg Suppository 10 mg RECTAL DAILY PRN (Reason: Constipation) Rx Instructions: if no results for MOM sennosides [senna] 8.6 mg Tablet 8.6 mg feeding tube BID guaifenesin 100 mg/5 mL liquid 300 mg feeding tube BID PRN (Reason: Cough) magnesium hydroxide [Milk of Magnesia] 400 mg/5 mL Suspension 30 ml PO HS PRN (Reason: Constipation) Rx Instructions: If no BM in 3 days polyethylene glycol 3350 17 gram/dose powder 17 g feeding tube DAILY PRN (Reason: Constipation) metoprolol tartrate 25 mg tablet 25 mg feeding tube BID atorvastatin 40 mg tablet 40 mg PO HS ipratropium-albuterol 0.5 mg-3 mg(2.5 mg base)/3 mL solution for nebulization 3 ml INHALATION Q6H PRN (Reason: Shortness Of Breath) artificial tears solution Drops 1 drp OPHTHALMIC (EYE) PRN PRN (Reason: Dry Eye(S)) Rx Instructions: instill 1 drop per eye as needed for dry eye thiamine HCl (vitamin B1) 100 mg Tablet 100 mg feeding tube DAILY famotidine 20 mg tablet 20 mg feeding tube BID valproic acid (as sodium salt) 250 mg/5 mL solution 1,250 mg feeding tube QID magnesium citrate [Citroma] Solution 296 ml PO DAILY PRN (Reason: Constipation) Rx Instructions: if no results from enema folic acid 1 mg tablet 1 mg feeding tube DAILY levetiracetam 100 mg/mL solution 1,500 mg feeding tube BID calcium carbonate 500 mg/5 mL (1,250 mg/5 mL) Suspension 1,250 mg PO Q6H PRN (Reason: Heartburn) lacosamide 10 mg/mL solution 200 mg feeding tube BID clobazam 10 mg tablet 10 mg feeding tube DAILY Eliquis 5 mg Tablet 5 mg feeding tube BID aspirin 81 mg Tablet,Chewable 81 mg feeding tube DAILY acetaminophen 650 mg/20.3 mL Suspension 650 mg feeding tube Q4H PRN (Reason: Pain (Scale Score 1-3)) meropenem 1 gram Recon Soln 1 g IV Q8H Qty: 8 0RF Follow-up/Referrals: Aggiedu,MD Burke [Primary Care Provider] - Stand Alone Forms: Halfway Discharge Time of Disposition: 03:21
--- OUTSIDE RECORDS SUMMARY | 2024-08-20 00:53 | XMS_ITS | Encounter Summary ---
Author Organization [facility] Address [address] [place] [address] Care Team Providers Care Hris Manager Name Role Phone Frank Toure MD Unavailable Misael Maradiaga DO Primary Care Provider [phone] Joyce Luevano NP Primary Care Provider Unavaila Marielena Adame MD Primary Care Provider [phone] Encounter Details Date Type Department Care Team (Late st Contact Info) Description 12/14/2018 Hospital Follow-up Call [facility] [place] [address] Cony Adan RN Social History Tobacco Use [...] on filedocumented in this encounter Care Teams Hris Manager Relationship Specialty Start Date End Date Misael Maradiaga DO [address] [place] [address] PCP - General FAMILY PRACTICE 09/28/18 01/13/20 Joyce Luevano NP [address] [place] [id number] PCP - General NURSE PRACTITIONER 01/14/20 10/26/23 Marielena Smallwood MD [address] [place] [id number] PCP - General FAMILY PRACTICE 10/27/23 Frank Toure MD [address] [place] [id number] [employer] CARDIOVASCULAR DISEASE 05/30/16 documented as of this encounter
--- OUTSIDE RECORDS SUMMARY | 2024-08-20 00:53 | XMS_ITS | Data Portability ---
Demographics Address [address] [place] [address] Home Phone Mobile Phone Email Address Preferred Language en Marital Status Never Mormon Affiliation Unknown Race Black or Irma rican Ethnic Group Not or Lati no Author Organization [facility] Address [address] [place] [address] Assessment No assessment recorded. Plan of Treatment Reminders Order Date Submit Date Provider Last Modified By Organization Details Last Modified Time Details Appointments None recorded. Lab None recorded. Referral None recorded. Procedures None recorded. Surgeries None recorded. Imaging None recorded. Medication Orders ibuprofen 800 [address] tablet [address] [facility], [address] [place] [address], [id number], 6 18:35:08 Prozac 20 mg capsule [address] [facility], [address] [place] [address], [id number], 5 16:10:15 tramadol 50 mg tablet 2014 [facility], [address] [place] [address], [id number], 5 12:13:56 Flomax 0.4 mg capsule 2014 015 [facility], [address] [place] [address], [id number], 5 16:10:16 Ambien 10 mg tablet 2014 015 [facility] [employer], [facility], [address] [place] [address], [id number], 5 10:37:28 Patient TargetsNo targets recorded. Patient Instructions Encounter Date Encounter Id Patient Instructions Last Modified By Organization Details Last Modified Time 06/10/2014 [id number] stroke: care instructions Not available 06/21/2014 17:33:19 insomnia: care instructions Not available 06/21/2014 17:33:19 epilepsy: care instructions Not available 06/21/2014 17:33:19 09/18/2014 [id number] epilepsy: care instructions dsalmond Not available 09/18/2014 17:05:10 back care and preventing injuries: care instructions dsalmond Not available 09/18/2014 17:05:10 04/16/2015 [id number] epilepsy: care instructions campadu Not available 04/16/2015 16:05:30 06/12/2015 [id number] stroke: care instructions dsalmond Not available 06/13/2015 12:21:31 epilepsy: care instructions dsalmond Not available 06/13/2015 12:21:31 learning about high blood pressure dsalmond Not available 06/13/2015 12:21:31 Reason for Referral None Reported. Results Created Date Observation Date Name Description Value Unit Range Abnormal Flag Note LastModifiedBy Organization Detail LastModifiedTime 06/12/19 16 06/12/2015 CBC w/ auto diff WBC 5.9 K/uL 3.4-10 .8 Not Available [facility] (Lab) [address] [place], [address], 06/12/2015 19:52:35 06/12/19 16 06/12/2015 CBC w/ auto diff red blood count 4.6 M/uL 4.5-6. 3 Not Available [facility] (Lab) [address], [place], [address], 06/12/2015 19:52:35 06/12/19 16 06/12/2015 CBC w/ auto diff hemoglobin 14.7 g/dL 13.5-1 7.5 Not Available [facility] (Lab) [address] [place], [address], 06/12/2015 19:52:35 06/12/19 16 06/12/2015 CBC w/ auto diff hematocrit 44.5 % 40.0-5 2.0 Not Available [facility] (Lab) [address] [place], [address], 06/12/2015 19:52:35 06/12/19 16 06/12/2015 CBC w/ auto diff MCV 97 fL 80-95 high Not Available [facility] (Lab) [address] [place], [address], 06/12/2015 19:52:35 06/12/19 16 06/12/2015 CBC w/ auto diff MCH 32 pg 27-32 Not Available [facility] (Lab) [address] [place], [address], 06/12/2015 19:52:35 06/12/19 16 06/12/2015 CBC w/ auto diff MCHC 33 g/dL 32-36 Not Available [facility] (Lab) [address] [place], [address], 06/12/2015 19:52:35 06/12/19 16 06/12/2015 CBC w/ auto diff platelets 219 K/uL 155-37 9 Not Available [facility] (Lab) [address] [place], [address], 06/12/2015 19:52:35 06/12/19 16 06/12/2015 CBC w/ auto diff RDW 11.6 % 11.5-1 4.5 Not Available [facility] (Lab) [address] [place], [address], 06/12/2015 19:52:35 06/12/19 16 06/12/2015 CBC w/ auto diff MPV 11.1 fL 8.9-12 .7 Not Available [facility] (Lab) [address] [place], [address], 06/12/2015 19:52:35 06/12/19 16 06/12/2015 CBC w/ auto diff neutrophils absolute 2.5 K/uL 1.4-7. 0 Not Available [facility] (Lab) [address] [facility], [place], [address], 06/12/2015 19:52:35 06/12/19 16 06/12/2015 CBC w/ auto diff lymphs (absolute) 2.6 K/uL 0.7-3. 1 Not Available [facility] (Lab) [address] [facility], [place], [address], 06/12/2015 19:52:35 06/12/19 16 06/12/2015 CBC w/ auto diff monocytes (absolute) 0.5 K/uL 0.1-0. 9 Not Available [facility] (Lab) [address] [place], [address], 06/12/2015 19:52:35 06/12/19 16 06/12/2015 CBC w/ auto diff eos (absolute) 0.2 K/uL 0.0-0. 4 Not Available [facility] (Lab) [address] [place], [address], 06/12/2015 19:52:35 06/12/19 16 06/12/2015 CBC w/ auto diff baso (absolute) 0.0 K/uL 0.1-0. 3 low Not Available [facility] (Lab) [address] [facility], [place], [address], 06/12/2015 19:52:35 06/12/19 16 06/12/2015 CBC w/ auto diff neut % 43.1 % 40.0-7 4.0 Not Available [facility] (Lab) [address] [place], [address], 06/12/2015 19:52:35 06/12/19 16 06/12/2015 CBC w/ auto diff lymphs % 44.6 % 14.0-4 6.0 Not Available [facility] (Lab) [address] [place], [address], 06/12/2015 19:52:35 06/12/19 16 06/12/2015 CBC w/ auto diff mono % 8.7 % 4.0-12 .0 Not Available [facility] (Lab) [address], [place], [address], 06/12/2015 19:52:35 06/12/19 16 06/12/2015 CBC w/ auto diff eos % 3 % <=5 Not Available [facility] (Lab) [address], [place], [address], 06/12/2015 19:52:35 06/12/19 16 06/12/2015 CBC w/ auto diff baso % 0.2 % 0.1-1. 1 Not Available [facility] (Lab) [address] [facility], [place], [address], 06/12/2015 19:52:35 06/12/19 16 06/13/2015 HbA1c (hemo globi n A1c), blood hemoglobin A1C 5.4 % 4.8-5. 6 . Pre-d iabet es: 5.7 - 6.4 Diabe ivet: >6.4 Glyce [place] contr ol for adult s with diabe ivet: <7.0 Not Available [facility] (Lab) [address], [place], [address], 06/13/2015 04:12:44 06/12/19 16 06/13/2015 T4, total , serum thyroxine T4 4.7 ug/dL 4.5-12 .0 Not Available [facility] (Lab) [address] [place], [address], 06/13/2015 05:19:09 06/12/19 16 06/13/2015 CMP, serum or plasm a glucose, serum 98 mg/dL 65-99 Not Available [facility] [address], [place], [address], 06/13/2015 05:19:11 06/12/19 16 06/13/2015 CMP, serum or plasm a BUN 7 mg/dL 6-24 Not Available [facility] (Lab) [address], [place], [address], 06/13/2015 05:19:11 06/12/19 16 06/13/2015 CMP, serum or plasm a creatinine, serum 0.78 mg/dL 0.76-1 .27 Not Available [facility] (Lab) [address], [place], [address], 06/13/2015 05:19:11 06/12/19 16 06/13/2015 CMP, serum or plasm a eGFR if nonafricn AM 102 mL/mi n/1.7 3 >59 Not Available [facility] (Lab) [address], [place], [address], 06/13/2015 05:19:11 06/12/19 16 06/13/2015 CMP, serum or plasm a eGFR if 118 mL/mi n/1.7 3 >59 Not Available [facility] (Lab) [address], [place], [address], 06/13/2015 05:19:11 06/12/19 16 06/13/2015 CMP, serum or plasm a BUN/creatini ne ratio 9 9-20 Not Available [facility] (Lab) [address], [place], [address], 06/13/2015 05:19:11 06/12/19 16 06/13/2015 CMP, serum or plasm a sodium, serum 141 mmol/ L 134-14 4 Not Available [facility] (Lab) [address] [place], [address], 06/13/2015 05:19:11 06/12/19 16 06/13/2015 CMP, serum or plasm a potassium, serum 4.5 mmol/ L 3.5-5. 2 Not Available [facility] (Lab) [address], [place], [address], 06/13/2015 05:19:11 06/12/19 16 06/13/2015 CMP, serum or plasm a chloride, serum 101 mmol/ L 97-108 Not Available [facility] (Lab) [address] [place], [address], 06/13/2015 05:19:11 06/12/19 16 06/13/2015 CMP, serum or plasm a carbon dioxide, total 23 mmol/ L 18-29 Not Available [facility] (Lab) [address], [place], [address], 06/13/2015 05:19:11 06/12/19 16 06/13/2015 CMP, serum or plasm a calcium, serum 9.5 mg/dL 8.7-10 .2 Not Available [facility] (Lab) [address], [place], [address], 06/13/2015 05:19:11 06/12/1906/13/2015 CMP, serum or plasm a protein total serum 7.2 g/dL 6.0-8. 5 Not Available [facility] (Lab) [address], [place], [address], 06/13/2015 05:19:11 06/12/1906/13/2015 CMP, serum or plasm a albumin, serum 4.5 g/dL 3.5-5. 5 Not Available [facility] (Lab) [address], [place], [address], 06/13/2015 05:19:11 06/12/19 16 06/13/2015 CMP, serum or plasm a globulin total 2.7 g/dL 1.5-4. 5 Not Available [facility] (Lab) [address], [place], [address], 06/13/2015 05:19:11 06/12/1906/13/2015 CMP, serum or plasm a A/G ratio 1.7 1.1-2. 5 Not Available [facility] (Lab) [address], [place], [address], 06/13/2015 05:19:11 06/12/1906/13/2015 CMP, serum or plasm a bilirubin total <0.2 mg/dL 0.0-1. 2 Not Available [facility] (Lab) [address] [place], [address], 06/13/2015 05:19:11 06/12/19 16 06/13/2015 CMP, serum or plasm a alkaline phosphatase ser 105 IU/L 39-117 Not Available [facility] (Lab) [address], [place], [address], 06/13/2015 05:19:11 06/12/19 16 06/13/2015 CMP, serum or plasm a AST (SGOT) 20 IU/L 0-40 Not Available [facility] ([facility]) [address] [place], [address], 06/13/2015 05:19:11 06/12/19 16 06/13/2015 CMP, serum or plasm a ALT (SGPT) 18 IU/L 0-44 Not Available [facility] ([facility]) [address] [place], [address], 06/13/2015 05:19:11 06/12/19 16 06/13/2015 TSH, serum or plasm a TSH 2.010 uIU/m L 0.450- 4.500 Not Available [facility] (Lab) [address] [place], [address], 06/13/2015 05:19:12 06/12/19 16 06/13/2015 PSA, serum [...] t be inter prete d as absol egegik evide nce of the prese nce or absen ce of truong mena . Not Available [facility] (Lab) [address] [place], [address], 06/13/2015 05:19:13 06/12/19 16 06/13/2015 lipid panel w/ direc t LDL, serum cholesterol, total 215 mg/dL 100-19 9 high Not Available [facility] (Lab) [address] [place], [address], 06/13/2015 05:19:14 06/12/19 16 06/13/2015 lipid panel w/ direc t LDL, serum triglyceride s 73 mg/dL 0-149 Not Available [facility] (Lab) [address] [place], [address], 06/13/2015 05:19:14 06/12/19 16 06/13/2015 lipid panel w/ direc t LDL, serum HDL cholesterol 85 mg/dL >39 Accor ding to ATP-I II Guide lines , HDL-C >59 mg/dL is consi dered a negat phan risk facto r for CHD. Not Available [facility] (Lab) [address] [place], [address], 06/13/2015 05:19:14 06/12/19 16 06/13/2015 lipid panel w/ direc t LDL, serum VLDL cholesterol margarita 15 mg/dL 5-40 Not Available [facility] (Lab) [address] [place], [address], 06/13/2015 05:19:14 06/12/19 16 06/13/2015 lipid panel w/ direc t LDL, serum LDL cholesterol calc 115 mg/dL 0-99 high Not Available [facility] ([facility]) [address] [place], [address], 06/13/2015 05:19:14 06/12/19 16 06/13/2015 lipid panel w/ direc t LDL, serum lipid calculation Not Available [facility] ([facility]) [address] [place], [address], 06/13/2015 05:19:14 09/22/19 15 09/21/2014 imagi ng/di agnos tic resul t No observ ation record ed. [address] , [place], [address], 09/30/2014 11:19:53 09/26/19 15 imagi ng/di agnos tic resul t No observ ation record ed. [email or web address] Not Available 2014 11:08:28 10/01/19 15 09/27/2014 imagi ng/di agnos tic resul t No observ ation record ed. [address] [place], [address], 10/03/2014 11:08:29 11/09/19 15 11/08/2014 imagi ng/di agnos tic resul t No observ ation record ed. [email or web address] Not Available 2014 15:10:11 12/02/19 15 12/01/2014 imagi ng/di agnos tic resul t No observ ation record ed. [email or web address] Not Available 2014 10:38:41 01/03/20 15 12/31/2014 imagi ng/di agnos tic resul t No observ ation record ed. [facility] (Rad) [address] [place], [address], 01/02/2015 09:50:17 01/07/20 15 01/05/2015 imagi ng/di agnos tic resul t No observ ation record ed. [email or web address] [facility], [place], [address], 01/06/2015 09:32:38 03/10/20 15 03/10/2015 imagi ng/di agnos tic resul t No observ ation record ed. [email or web address] [facility] (Rad) [address] [place], [address], 03/10/2015 12:50:58 03/11/20 15 03/11/2015 CV EKG 12 lead MOJGAN TABOR MD: KIRILL ANN MD 6905 ACCT: [id number] ADMIT/ SERVIC E DATE: DISCHA RGE DATE: : 1959 PT TYPE: ADM IN SEX: M ORD SITE: [address] TEST DATE: 2014-05 PAT NAME: MOJGAN TABOR DEPART MENT: CARD 40 PATIEN T ID: [id number] ROOM: [facility] [place] GENDER : MALE TECHNI MARIA ISABEL: CDN : 01-[address] BY: CADE ANN ORDER NUMBER : [id number] [id number] CJ Lu MD: FELIPE SELF MEASUR EMENTS INTERV ALS AXIS RATE: 145 P: 81 OH: 118 QRS: 19 QRSD: 82 T: 70 QT: 282 QTC: 438 INTERP RETIVE STATEM ENTS SINUS TACHYC ARDIA WITH SHORT OH INTERV AL WITH OCCASI ONAL VENTRI CULAR PREMAT URE COMPLE XES WITH OCCASI ONAL SUPRAV ENTRIC ULAR AMBER SEPTAL MYOCAR DIAL INFARC TION, PROBAB LY OLD NONSPE CIFIC ST SEGMEN T ABNORM ALITIE S, CANNOT RULE OUT ISCHEM IA ELECTR ONICAL LY SIGNED BY FELIPE SELF AT 17:03: 07 CDT [facility], [place], [address], 05/07/2015 04:08:47 03/11/20 15 03/11/2015 xr chest 1 view alejandraMOJGAN Hester 6905 ADMIT/ SERVIC E DATE: ACCT: [id number] DISCHA RGE DATE: : 1959 SEX: M ORD SITE: [facility] PT TYPE: ADM IN JING MUHAMMAD MD: KIRILL ANN MD STUDY DATE REPORT # ORDER # EXT ORDER ID [id number] 1.002 PROC CODE: [id number] ORT PROCED URE DESCRI PTION: XR CHEST 1 VIEW PORTAB LE I MPRESS ION: NO ACUTE INFILT RATE. EXAMIN ATION: PORTAB LE CHEST X-RAY 1 VIEW ACCESS ION: [id number] EXAM DATE/T TRAVON: 2014 8:36 PM CLINIC [...] SIGNED BY: MARYBEL CROUCH ER10/07/2014 8:54 PM [facility], [place], [address], 05/07/2015 04:08:47 03/12/20 15 03/12/2015 MRI brain wo MOJGAN TABOR 6905 ADMIT/ SERVIC E DATE: ACCT: [id number] DISCHA RGE DATE: : 1959 SEX: M ORD SITE: [facility] PT TYPE: ADM IN BRANDONI SABINA MD: KIRILL ANN MD STUDY DATE REPORT # ORDER # EXT ORDER ID [id number] 1.001 PROC CODE: BRNWOC PROCED URE DESCRI [...] BRAIN WITHOU T CONTRA ST. ACCESS ION: [id number] EXAM DATE/T TRAVON: 2014 11:23 AM CLINIC [...] SIGNED BY: CADE GRAY 11:51 AM build [facility], [place], [address], 05/07/2015 04:08:47 06/19/19 16 06/19/2015 imagi ng/di agnos tic resul t No observ ation record ed. [facility] Not Available 2015 09:33:44 06/19/19 16 06/19/2015 imagi ng/di agnos tic resul t No observ ation record ed. [facility] (Lab) [address] [place] [address] , [place], [address], 06/19/2015 09:33:44 06/19/19 16 06/19/2015 imagi ng/di agnos tic resul t No observ ation record ed. [facility] (Lab) [address] [place] [address] [place], [address], 06/20/2015 09:57:26 06/20/19 16 06/19/2015 imagi ng/di agnos tic resul t No observ ation record ed. [address] [place], [address], 06/20/2015 10:01:56 05/09/20 19 05/09/2019 , les aldana id arter y No observ ation record ed. [address] [place], [address], 05/09/2019 17:59:20 Result Notes None recorded. Problems Name Problem SNOMED Code Status Onset Date Resolution Date Notes Provider Name and Address Organization Details Recorded Time Low back pain 120238333 Active Burke Ann MD Attn: Zulemalivia lu,[address] [facility], [place], [address], [place] [facility] 5 16:09:38 Essential hypertension 42528050 Active Burke Ann MD Attn: Austin tabitha,[address] [facility], [place], [address], [place] [facility] 6 18:34:53 Anxiety 80732977 Active Burke Ann MD Attn: Austin lu,[address] [facility], [place], [address], [place] [facility] 5 15:03:30 Laceration - injury 852208940 Active Burke Ann MD Attn: Zulemalivia lu,[address] [facility], [place], [address], [place] [facility] 5 15:31:20 Seizure disorder 398806423 Active Burke Ann MD Attn: [place] tabitha,[address] [facility], [place], [address], [place] [facility] 6 18:34:53 Cerebrovascula r accident 797792224 Active Burke Ann MD Attn: [place] tabitha,[address] [facility], [place], [address], [place] [facility] 6 18:34:53 Insomnia 624162380 Active Burke Ann MD Attn: [place] lu,[address] [facility], [place], [address], [place] [facility] 5 15:31:20 Problem Notes None recorded. Procedures Surgical History None recorded. Imaging Results Imaging Date Name Status LastModified by Organiz ation Details LastModified Time 09/21/2014 imaging/diagn ostic result completed [address] [place], [address], 09/30/2014 11:19:53 09/25/2014 imaging/diagn ostic result completed Information not available 10/03/2014 11:08:28 09/27/2014 imaging/diagn ostic result completed [address] [place], [address], 10/03/2014 11:08:29 11/08/2014 imaging/diagn ostic result completed Information not available 11/11/2014 15:10:11 12/01/2014 imaging/diagn ostic result completed [email or web address] Information not available 12/02/2014 10:38:41 12/31/2014 imaging/diagn ostic result completed [email or web address] [facility] ([facility]) [address] [place], [address], 01/02/2015 09:50:17 01/05/2015 imaging/diagn ostic result completed [email or web address] [place], [address], 01/06/2015 09:32:38 03/10/2015 imaging/diagn ostic result completed [email or web address] [facility] (Rad) [address] [place], [address], 03/10/2015 12:50:58 03/11/2015 CV EKG 12 [place], [address], 05/07/2015 04:08:47 03/11/2015 xr chest 1 [place], [address], 05/07/2015 04:08:47 03/12/2015 [place], [address], 05/07/2015 04:08:47 06/19/2015 imaging/diagn ostic result completed [facility] Information not available 06/19/2015 09:33:44 06/19/2015 imaging/diagn ostic result completed [facility] (Lab) [address] [place] [address] [place], [address], 06/19/2015 09:33:44 06/19/2015 imaging/diagn ostic result completed [facility] (Lab) [address] [place] [address] [place], [address], 06/20/2015 09:57:26 06/19/2015 imaging/diagn ostic result completed [address] [place], [address], 06/20/2015 10:01:56 05/09/2019 US, duplex, carotid artery completed [address] [place], [address], 05/09/2019 17:59:20 Procedure Notes None recorded. Medical [...] Details Last Updated DateTime 5 22 /min 80921.9 53496 g 98.7 [degF] 170.18 cm 21.4 kg/m2 80 /min 148 mm[Hg] 94 mm[Hg] Leonor Arauz MA [facility] 5 15:57:48 Date Recorded Body height Body mass index (BMI) Body weight Heart rate Respiratory rate Body temperature Systolic blood pressure Diastolic blood pressure Provider Name and Address Organization Details Last Updated DateTime 5 170.18 cm 21.5 kg/m2 88090.1 5469 g 88 /min 20 /min 98.2 [degF] 132 mm[Hg] 80 mm[Hg] Fior Pereyra MA [facility] 5 12:08:47 Date Recorded Body temperature Body height Body mass index (BMI) Heart rate Respiratory rate Body weight Systolic blood pressure Diastolic blood pressure Provider Name and Address Organization Details Last Updated DateTime 5 97.9 [degF] 175.26 cm 20.2 kg/m2 78 /min 18 /min 19014.1 5469 g 142 mm[Hg] 90 mm[Hg] Jeannasunitha Luan [facility] 5 13:46:55 Date Recorded Heart rate Body height Respiratory rate Body mass index (BMI) Body weight Body temperature Systolic blood pressure Diastolic blood pressure Provider Name and Address Organization Details Last Updated DateTime 6 92 /min 170.18 cm 20 /min 21.5 kg/m2 64746.1 5469 g 98 [degF] 102 mm[Hg] 78 mm[Hg] Leonor Arauz MA [facility] 6 16:31:07 Social History None recorded. [...] Skin Problems N Anemia N Heart Attack ([place]) N Diabetes N Seizures/Epilepsy Y Asthma N Allergies N Hepatitis N Osteoporosis N Heart Failure N Past Encounters Encounter ID Performer Location Encounter Start Date Encounter Closed Date Diagnosis/Indication Diagnosis SNOMED-CT Code Diagnosis ICD10 Code Diagnosis Note [id number] Jeannie Sherman RN [facility] (Adult/Fa m Med) [address] [place] [address] 06/10/2014 13:26:21 06/10/2014 18:13:06 Laceration - injury 822123596 Seizure disorder 877488337 Cerebrovas cular accident 393776418 Insomnia 235852895 [id number] Nata Albert LPN [facility] (Adult/Fa m Med) [address] [place] [phone] 09/18/2014 14:45:50 09/18/2014 18:01:22 Seizure disorder 361858908 Anxiety 01538799 Low back pain 192820664 [id number] Crystal Toy [facility] (Adult/Fa m Med) [address] [place] [address] 04/16/2015 11:24:38 04/16/2015 17:33:17 Essential hypertension 50811998 I10 Anxiety 87400631 F41.9 Seizure disorder 5986581 02 G40.909 [id number] Dotty Peace [facility] (Adult/Fa m Med) [address] [place] [phone] 06/12/2015 15:25:04 06/27/2015 12:04:51 Essential hypertension 44557894 I10 Seizure disorder 5631415 02 G40.909 Cerebrovas cular accident 864512698 I63.9 Health Concerns Section Related Observation LastModified by Organization Detai ls LastModified Time None Recorded Concern Status LastModified by Organization Details LastModified Time None Recorded Advance Directives Directive None Recorded Payers Encounter Date Sequence Insurance Name Policy Number Policy Gilbert Covered Member ID Gilbert Member ID Guarantor Name 06/10/2014 1 [facility] PRIOR TO 11/27/2020 (MEDICAID REPLACEMENT - HMO) Mojgan Tabor [id number] Mojgan Tabor 09/18/2014 1 [facility] PRIOR TO 11/27/2020 (MEDICAID REPLACEMENT - HMO) Mojgan Tabor [id number] Mojgan Tabor 04/16/2015 1 [facility] PRIOR TO 11/27/2020 (MEDICAID REPLACEMENT - HMO) Mojgan Tabor [id number] Mojgan Tabor 06/12/2015 1 [facility] PRIOR TO 11/27/2020 (MEDICAID REPLACEMENT - HMO) Mojgan Tabor [id number] Mojgan Tabor Notes Date Note Type Note Provider Name and Address Organization Details Recorded Time 04/16/2015 text/html FOLLOW up care since stroke Burke Ann MD Attn: [employer]ing,[address] [place], [address], [place] [facility] 04/16/2015 15:03:31
--- OUTSIDE RECORDS SUMMARY | 2024-08-20 00:53 | XMS_ITS | Clinical Summary ---
Author Organization [facility] Address [address] [place] [address] Care Team Providers Care Ob/Gyn Physician Name Role Phone Marielena Smallwood MD Primary [...] 06/28/2024 Assessment & Plan (06/28/2024 11:42 AM DOBBY LOOM CHAIN PEGGER): Now back on full TF's sugars running mildly high. Monitor with q4 accuchecks and SSI. Hypophosphatemia 06/27/2024 Assessment & Plan (06/28/2024 11:44 AM DOBBY LOOM CHAIN PEGGER): <0.7 ? 2/2 refeeding syndrome. Started on neutraphos 2pkg QID 06/26. Still Phos<0.7 06/27. Tx with IV NaPhos 30mmoles and cont per tube replacement and monitor closely. -06/28: Phos=3.3, reduce nuetraphos to 1 PKG BID and monitor History of DVT (deep vein thrombosis) 06/26/2024 Assessment & Plan (06/26/2024 1:32 PM DOBBY LOOM CH[employer] PEGGER): -On anticoagulation with Eliquis 5 mg po BID for hx of DVT -per chart review hx of Left Subclavian vein DVT diagnosed 08/01/23 H/O: GI bleed 06/25/2024 Assessment & Plan (06/26/2024 1:32 PM DOBBY LOOM CHAIN PEGGER): - recent [facility] ( 06-07-24 [...] 06/25/2024 Assessment & Plan (06/26/2024 1:36 PM DOBBY LOOM CHAIN PEGGER): Tracheostomy dependence, has a Shiley #4 cuffed. Pt followed at [facility], per notes trach in place for pulmonary toilet due to his copious secretions and ongoing aspiration of his secretions. -needing frequent suctioning -sats stable on 28% FIO2 by HHTC -Was getting VEST at [facility] Low grade fever 06/20/2024 Assessment & Plan (06/26/2024 1:34 PM DOBBY LOOM CHAIN PEGGER): Low-grade fever and tachycardia, softer BP after [...] 06/17/2024 Assessment & Plan (06/28/2024 11:43 AM DOBBY LOOM CH[employer] PEGGER): -patient at admission with a G tube, was getting continous tube feedings at [facility] and not tolerating, -was changed to bolus [...] tube fell off and pt had 18 [place] G tube placed at [facility] ED on 04/21/24 (records on care everywhere)and after that he has not tolerated well tube feedings per discussion with his sister Ms Hilliard,Adriane [phone] POA - consulted IR 06-20-24 for conversion [...] goal 06/25, adjust FWF per hydration status, partition setter to follow up -On full TF's-osmolite 1.5. Phos repleted. Copious oral secretions 06/13/2024 Assessment & Plan (06/26/2024 1:29 PM DOBBY LOOM CHAIN PEGGER): Patient on chronic glycopyrrolate due to secretions, held at admission 2/ to potential for constipation with plan to add back when he's had a bowel movements -resume on 06-19- hold on 06-20 due to somnolence. Suction PRN - restart glycopyrrolate 1mg BID 06/26 and monitor Abdominal pain 06/12/2024 Assessment & Plan (06/26/2024 1:23 PM DOBBY LOOM CHAIN PEGGER): -p/w abdominal distention from SNF to ED on 06-12 ,reported biliary emesis per jail (approximately 300 cc) , not associated fevers or change in bowel habits. Feeding tube placed to gravity drainage in ED H&P notes regular bowel movements. CT scan on 06-12 in ED with stool in the rectum and sigmoid. [place] likely constipation contributing to the patient's abdominal [...] 06/12/2024 Assessment & Plan (06/26/2024 12:08 AM DOBBY LOOM CHAIN PEGGER): Complicated by left LE AKA. History of CVA (cerebrovascular accident) 2020 Assessment & Plan (06/26/2024 1:32 PM DOBBY LOOM CHAIN PEGGER): - hx of RT parietal CVA- hx of dementia Cont asa and statin Essential hypertension 12/11/2020 Assessment & Plan (06/26/2024 1:30 PM DOBBY LOOM CHAIN PEGGER): - on metoprolol and norvasc, held with soft BP 06-19 - resume metoprolol 06-21 -resume amlodipine 06-22 - Monitor Hyperlipidemia 12/11/2020 Assessment & Plan (06/12/2024 3:47 PM DOBBY LOOM CHAIN PEGGER): - Continue home statin Seizure 12/10/2020 Assessment & Plan (06/26/2024 1:36 PM DOBBY LOOM CHAIN PEGGER): History of seizure disorder secondary to traumatic brain injury. Currently on valproate, Vimpat, Keppra and Cobazam - Continue home medication, valproate level low at admit 48 on 06-12, 48 on 06-13, Valproic acid level 76 06-19 prior to dose, lacosamide level 1.4 on 06/12, 9.6 on 06-19 Followed by Neurology at [facility] Cognitive communication deficit 08/25/2020 Cerebrovascular accident 06/13/2019 [...] Department Care Team Description 07/09/2024 7:23 PM DOBBY LO[employer] CH[employer] PEGGER - 07/09/2024 11:59 PM [employer]Y [employer] CH[employer] PEGGER Hospital Encounter AMBULANCE BILLING [id number] [place] [address] Discharge Disposition: Discharge to home or self care 07/08/2024 7:52 PM DOBBY [employer] CH[employer] PEGGER - 07/09/2024 7:48 AM [facility] Emergency [facility] Emergency Department [address] [place] [address] Tri Martinez MD Thomas, Jenna Marie, MD Tracheostomy complication, unspecified complication type (HCC) (Primary Dx); Balanitis Discharge Disposition: Discharge to home or self care 06/12/2024 10:26 AM DOBBY LO[employer] CH[employer] PEGGER - 06/28/2024 5:25 PM DOBBY [employer] CH[employer] PEGGER Hospital Encounter [facility] [address] [place] [address] Shakila Jung MD Choi, Cheuk Ho Jeffrey, [...] h recurrent seizures (HCC) Followed up at [facility] ([facility]) Degenerative cervical spinal stenosis Family History Medical History Relation Name Comments Coronary artery disease Father Stroke Father Hypertension Mother Relation Name Status Comments Father Mother Social History Tobacco Use Types Packs/Day Years Used Date Smoking Tobacco: Former Cigarettes Smokeless Tobacco: Current Tobacco Cessation:Counseling Given: Yes [facility] Utilities Answer Date Recorded In the [...] often do you attend chur ch or yarsani services? Never 06/18/2024 Do you belong to any clubs o r organizations such as restorationism groups, unions, fraternal or athletic groups, or [...] any time in the past 12 m [facility], were you homeless or living in a residential (including now)? No 06/18/2024 Personal Safety Answer Date Recorded Have you ever been in or are you currently in a harmful physical or emotional relationship or is someone making you feel afraid or unsafe? Denies 07/08/2024 Sex and Gender Information Value Date Recorded Sex Assigned at Not on file Legal Sex Male 6:11 AM DOBBY LOOM CH[employer] PEGGER Gender Identity Not on file Sexual Orientation Not on file Obstetrics History Last Filed Vital Signs Vital Sign Reading Time Taken Comments Blood Pressure 145/83 07/09/2024 6:00 AM DOBBY [employer] CH[employer]ER Pulse 91 07/09/2024 6:00 AM [employer]BBY [employer] CH[employer] PEGGER Temperature 36.5 C (97.7 F) 07/09/2024 6:31 AM DOBBY LOOM CH[employer] PEGGER Respiratory Rate 10 07/09/2024 6:00 AM DOBBY LOOM CHAIN PEGGER Oxygen Saturation 100% 07/09/2024 6:00 AM DOBBY [employer]OM CH[employer] PEGGER Inhaled Oxygen Concentration - - Weight 79.8 kg (176 lb) 07/09/2024 2:16 AM DOBBY LOOM CHAIN PEGGER Height 182.9 cm (6') 07/09/2024 2:16 AM DOBBY LOOM CH[employer] PEGGER Body Mass Index 23.87 07/09/2024 2:16 AM DOBBY LOOM CHAIN PEGGER Plan of Treatment Health Maintenance Due Date Last Done Comments Albumin Creatinine Ratio, Urine 1961 Colon Cancer Screening-Colonoscopy 1961 Prostate Cancer Screening-PSA 1961 Dilated Eye Exam 1961 Foot Exam 1961 Hepatitis B Screening 1979 Regular Well Visit/Exam 18-64 1979 Zoster Vaccine (1 of 2) 2011 Pneumococcal vaccine <65 (2 of 2 - PCV) 02/03/2017 02/04/2016, 08/13/2015, 02/07/2015 Covid-19 Vaccine (2023-2 5 season) 2024 04/06/2021, 07/02/2020, 06/11/2020 Influenza [...] Diagnosis Comments POCT RAPID HIV ANTIBODY COMMUNITY SCREENING-SISA ELIGIBLE STAT 07/09/2024 5:32 AM DOBBY LOOM CHAIN PEGGER SEPSIS LACTATE WITH REFLEX Timed 07/09/2024 4:33 AM DOBBY LOOM CHAIN PEGGER ED PERIPHERAL LINE INSERTION Routine 07/09/2024 1:18 AM [employer]Y [employer] CH[employer]ER SEPSIS LACTATE WITH REFLEX Timed 07/09/2024 1:15 AM DOBBY LOOM CH[employer] PEGGER RPR STAT 07/09/2024 1:15 AM DOBBY [employer] CH[employer] PEGGER N. GONORRHOEAE/C. TRACHOMATIS AMPLIFICATION STAT 07/09/2024 1:02 AM [employer]BBY [employer] CH[employer] PEGGER URINALYSIS AND REFLEX TO MICROSCOPIC AND CULTURE STAT 07/09/2024 1:02 AM DOBBY [employer] CH[employer] PEGGER ED PERIPHERAL LINE INSERTION Routine 07/08/2024 10:11 [address] [address] CHEST ABDOMEN PELVIS W CONTRAST ED 07/08/2024 9:55 PM DOBBY [employer] CH[employer] PEGGER EGFR STAT 07/08/2024 8:56 PM DOBBY LOOM CH[employer] PEGGER DIFFERENTIAL AUTO STAT 07/08/2024 8:5 6 PM [employer] CH[employer]ER SEPSIS LACTATE WITH REFLEX STAT 07/08/2024 8:56 PM DOBBY [employer] CH[employer] PEGGER LIPASE STAT 07/08/2024 8:56 PM [employer] CH[employer] PEGGER COMPREHENSIVE METABOLIC PANEL STAT 07/08/2024 8:56 PM DOBBY LO[employer] CH[employer] PEGGER CBC WITH AUTO DIFFERENTIAL STAT 07/08/2024 8:56 PM DOBBY [employer] CH[employer] PEGGER RESPIRATORY PATHOGEN PANEL STAT 07/08/2024 8:56 PM DOBBY LOOM CH[employer] PEGGER ECG 12-LEAD Routine 07/08/2024 8:28 PM DOBBY [employer] CH[employer] PEGGER XR CHEST 1 VIEW ED 07/08/2024 8:18 PM DOBBY LOOM CH[employer] PEGGER POCT GLUCOSE DEVICE Routine 06/28/2024 4 :24 PM DOBBY [employer] CH[employer]GGER POCT GLUCOSE DEVICE Routine 06/28/2024 1 2:30 PM DOBBY [employer] CH[employer] PEGGER POCT GLUCOSE DEVICE Routine 06/28/2024 7 :43 AM DOBBY [employer] CH[employer] PEGGER POCT GLUCOSE DEVICE Routine 06/28/2024 4 :01 AM DOBBY LO[employer] CH[employer] PEGGER POCT GLUCOSE DEVICE Routine 06/27/2024 1 1:28 PM DO[employer]Y [employer] CH[employer] PE[employer]ER EGFR Routine 06/27/2024 9:30 PM DOBBY [employer] CH[employer] PEGGER PHOSPHORUS Routine 06/27/2024 9:30 PM [employer]BBY [employer] CH[employer] PEGGER MAGNESIUM Routine 06/27/2024 9:30 PM [employer]BBY [employer] CH[employer]GGER BASIC METABOLIC PANEL Routine 06/27/2024 9:30 PM DOBBY [employer] CH[employer] PEGGER POCT GLUCOSE DEVICE Routine 06/27/2024 8 :39 PM DOBBY [employer] CH[employer] PEGGER POCT GLUCOSE DEVICE Routine 06/27/2024 5 :10 PM DO[employer] CH[employer] PEGGER POCT GLUCOSE DEVICE Routine 06/27/2024 4 :27 PM DOBBY [employer] CH[employer] PEGGER POCT GLUCOSE DEVICE Routine 06/27/2024 1 :06 PM DOBBY [employer] CH[employer] PEGGER POCT GLUCOSE DEVICE Routine 06/27/2024 9 :59 AM DOBBY LO[employer] CH[employer] PE[employer]ER EGFR Routine 06/26/2024 10:21 PM DOBBY LO[employer] CH[employer] PEGGER DIFFERENTIAL AUTO Routine 06/26/2024 10: 21 PM DOBBY LOOM CH[employer] PEGGER PHOSPHORUS Routine 06/26/2024 10:21 PM DOBBY LO[employer] CH[employer] PEGGER MAGNESIUM Routine 06/26/2024 10:21 PM DOBBY LOOM CH[employer] PEGGER CBC WITH AUTO DIFFERENTIAL Routine 06/26/2024 10:21 PM DOBBY LO[employer] CH[employer] PEGGER BASIC METABOLIC PANEL Routine 06/26/2024 10:21 PM DOBBY [employer] CH[employer]ER HEPATITIS B SURFACE ANTIGEN Routine 06/26/2024 10:21 PM DOBBY [employer] CH[employer] PE[employer]ER PHOSPHORUS Routine 06/26/2024 3:21 PM DOBBY LO[employer] CH[employer] PEGGER RPR Routine 06/26/2024 3:21 PM DOBBY [employer] CH[employer]ER HEPATITIS C ANTIBODY Routine 06/26/2024 3:21 PM DOBBY [employer] CH[employer] PE[employer]ER HIV 1/2 ANTIBODY PLUS P24 ANTIGEN Routine 06/26/2024 3:21 PM DOBBY [employer] CH[employer]ER EGFR Routine 06/26/2024 12:16 AM DOBBY [employer] CH[employer] PE[employer]ER PHOSPHORUS Routine 06/26/2024 12:16 AM DOBBY [employer] CH[employer] PEGGER MAGNESIUM Routine 06/26/2024 12:16 AM DOBBY LO[employer] CH[employer] PEGGER BASIC METABOLIC PANEL Routine 06/26/2024 12:16 AM DOBBY LOOM CHAIN PEGGER POCT GLUCOSE DEVICE Routine 06/23/2024 1 1:36 AM DOBBY LOOM CHAIN PEGGER CBC WITHOUT DIFFERENTIAL Timed 06/23/2024 9:07 AM DOBBY LOOM CHAIN PEGGER VANCOMYCIN LEVEL TROUGH Routine 06/23/2024 9:00 AM DOBBY LO[employer] CH[employer]ER EGFR Routine 06/23/2024 9:00 AM DOBB[employer] CH[employer] PE[employer]ER MAGNESIUM Routine 06/23/2024 9:00 AM DOBBY LO[employer] CH[employer] PE[employer]ER PHOSPHORUS Routine 06/23/2024 9:00 AM DOBBY [employer] CH[employer]GGER BASIC METABOLIC PANEL Routine 06/23/2024 9:00 AM DOBBY LOOM CHAIN PEGGER G TO GJ-TUBE REPLACEMENT IP Routine 06/22/2024 1:24 PM DOBBY LOOM CHAIN PEGGER C. DIFFICILE TESTING Routine 06/21/2024 11:11 AM DOBBY LO[employer] CH[employer] PEGGER INFECTION PREVENTION VRE CULTURE Routine 06/21/2024 11:10 AM DOBBY LO[employer] CH[employer] PEGGER VANCOMYCIN LEVEL TROUGH Timed 06/21/2024 7:16 AM DOBBY [employer] CH[employer] PEGGER EGFR Routine 06/21/2024 5:03 AM DOBBY [employer] CH[employer] PE[employer]ER DIFFERENTIAL AUTO Routine 06/21/2024 5:0 3 AM DOBBY [employer] CH[employer] PE[employer]ER PHOSPHORUS Timed 06/21/2024 5:03 AM [employer] CH[employer] PE[employer]ER MAGNESIUM Routine 06/21/2024 5:03 AM DOBB[employer] CH[employer]ER COMPREHENSIVE METABOLIC PANEL Routine 06/21/2024 5:03 AM DOBBY LOOM CH[employer] PEGGER CBC WITH AUTO DIFFERENTIAL Routine 06/21/2024 5:03 AM DOBBY LOOM CHAIN PEGGER MSSA/MRSA (STAPHYLOCOCCUS AUREUS) CULTURE Routine 06/20/2024 10:30 PM DOBBY LOOM CHAIN PEGGER XR ABDOMEN AP 1 VIEW IP Routine 06/20/2024 10:29 AM DOBBY LOOM CHAIN PEGGER URINALYSIS, MICROSCOPIC ONLY Routine 06/19/2024 9:34 PM [employer] CH[employer]ER URINALYSIS AND REFLEX TO MICROSCOPIC AND CULTURE Routine 06/19/2024 9:34 PM DOBB[employer] CH[employer] PE[employer]ER DIFFERENTIAL AUTO Routine 06/19/2024 9:2 8 PM [employer] CH[employer] PE[employer]ER CBC WITH AUTO DIFFERENTIAL Routine 06/19/2024 9:28 PM DOBBY [employer] CH[employer] PE[employer]ER VALPROIC ACID LEVEL, TOTAL Timed 06/19/2024 9:28 PM DOBB[employer] CH[employer] PEGGER LACOSAMIDE Routine 06/19/2024 9:28 PM [employer]BB[employer] CH[employer] PEGGER RESPIRATORY PATHOGEN PANEL Routine 06/19/2024 9:10 PM DOBBY [employer] CH[employer] PEGGER AEROBIC CULTURE AND GRAM STAIN Routine 06/19/2024 6:53 PM DOBBY [employer] CH[employer] PEGGER XR CHEST 1 VIEW IP Routine 06/19/2024 6:47 PM [employer]BB[employer] CH[employer] PEGGER RESPIRATORY PATHOGEN PANEL Routine 06/19/2024 6:46 PM DOBBY [employer] CH[employer] PEGGER XR ABDOMEN AP 1 VIEW IP Routine 06/19/2024 4:09 PM DOBB[employer] CH[employer] PEGGER XR CHEST 1 VIEW IP Routine 06/19/2024 4:08 PM [employer] CH[employer]ER EGFR Timed 06/19/2024 2:47 PM DOBBY [employer] CH[employer] PEGGER DIFFERENTIAL AUTO Timed 06/19/2024 2:4 7 PM [employer] CH[employer]ER PHOSPHORUS Timed 06/19/2024 2:47 PM [employer] CH[employer] PE[employer]ER MAGNESIUM Timed 06/19/2024 2:47 PM [employer] CH[employer]ER COMPREHENSIVE METABOLIC PANEL Timed 06/19/2024 2:47 PM DOBB[employer] CH[employer] PEGGER CBC WITH AUTO DIFFERENTIAL Timed 06/19/2024 2:47 PM DOBB[employer] CH[employer] PEGGER POCT GLUCOSE DEVICE Routine 06/19/2024 2 :25 PM [employer]BB[employer] CH[employer]ER XR ABDOMEN AP 1 VIEW IP Routine 06/16/2024 6:16 PM DO[employer] CH[employer]ER EGFR Routine 06/16/2024 12:42 PM DO[employer] CH[employer] PE[employer]ER DIFFERENTIAL AUTO Routine 06/16/2024 12: 42 PM DO[employer] CH[employer] PE[employer]ER PHOSPHORUS Routine 06/16/2024 12:42 PM DOBBY [employer] CH[employer] PEGGER MAGNESIUM Routine 06/16/2024 12:42 PM DOBBY [employer] CH[employer] PEGGER COMPREHENSIVE METABOLIC PANEL Routine 06/16/2024 12:42 PM DOBBY LOOM CHAIN PEGGER CBC WITH AUTO DIFFERENTIAL Routine 06/16/2024 12:42 PM DOBBY LOOM CH[employer] PEGGER XR ABDOMEN AP 1 VIEW ED Urgent/IP Urgent 06/15/2024 1:57 AM DOBBY LOOM CH[employer] PEGGER EGFR Routine 06/13/2024 4:59 AM DOBBY LOOM CHAIN PEGGER DIFFERENTIAL AUTO Routine 06/13/2024 4:5 9 AM DOBBY LOOM CHAIN PEGGER VALPROIC ACID LEVEL, TOTAL Routine 06/13/2024 4:59 AM DOBBY LOOM CHAIN PEGGER CBC WITH AUTO DIFFERENTIAL Routine 06/13/2024 4:59 AM DOBBY [employer]OM CH[employer] PEGGER PHOSPHORUS Routine 06/13/2024 4:59 AM DOBBY [employer] CH[employer] PEGGER MAGNESIUM Routine 06/13/2024 4:59 AM DOBBY [employer] CH[employer] PEGGER COMPREHENSIVE METABOLIC PANEL Routine 06/13/2024 4:59 AM DOBBY LO[employer] CHAIN PEGGER LACOSAMIDE Routine 06/13/2024 4:59 AM DOBBY [employer]OM CH[employer] PEGGER BLOOD CULTURE Routine 06/13/2024 4:59 AM DOBBY LO[employer] CH[employer] PEGGER TSH Routine 06/12/2024 3:51 PM [employer]BB[employer] CH[employer] PE[employer]ER DIFFERENTIAL AUTO Routine 06/12/2024 3:3 0 PM [employer] CH[employer] PE[employer]ER CBC WITH AUTO DIFFERENTIAL Routine 06/12/2024 3:30 PM DO[employer] CH[employer]ER HEMOGLOBIN A1C Routine 06/12/2024 3:30 PM DOBB[employer] CH[employer]ER TROPONIN I HIGH-SENSITIVITY 4-HOUR Timed 06/12/2024 3:27 PM DOBB[employer] CH[employer] PEGGER XR CHEST 1 VIEW ED 06/12/2024 2:47 PM DOBB[employer] CH[employer] PEGGER URINALYSIS AND REFLEX TO MICROSCOPIC AND CULTURE STAT 06/12/2024 2:38 PM DOBBY LOOM CHAIN PEGGER DIFFERENTIAL AUTO STAT 06/12/2024 2:2 3 PM DOBBY [employer] CH[employer] PEGGER CBC WITH AUTO DIFFERENTIAL STAT 06/12/2024 2:23 PM DOBBY [employer] CH[employer] PE[employer]ER TROPONIN I HIGH-SENSITIVITY 2-HOUR Timed 06/12/2024 1:56 [address] [address] [address] ABDOMEN PELVIS W CONTRAST ED 06/12/2024 12:22 PM DOBB[employer] CH[employer] PEGGER ED PERIPHERAL LINE INSERTION Routine 06/12/2024 11:50 AM DOBBY LOOM CHAIN PEGGER INFLUENZA A/B, RSV, AND COVID-19 PCR Routine 06/12/2024 11:39 AM DOBBY LOOM CHAIN PEGGER POCT CREATININE - DEVICE Routine 06/12/2024 11:29 AM DOBBY LOOM CH[employer] PEGGER EGFR STAT 06/12/2024 11:22 AM DOBBY LOOM CHAIN PEGGER DIFFERENTIAL AUTO STAT 06/12/2024 11: 22 AM DOBBY LOOM CHAIN PEGGER TROPONIN I HIGH-SENSITIVITY SERIES (BASELINE, 2HR, 4HR, 6HR) STAT 06/12/2024 11:22 AM DOBBY LOOM CHAIN PEGGER LIPASE STAT 06/12/2024 11:22 AM DOBBY LOOM CHAIN PEGGER CBC WITH AUTO DIFFERENTIAL STAT 06/12/2024 11:22 AM DOBBY LO[employer] CH[employer] PEGGER COMPREHENSIVE METABOLIC PANEL STAT 06/12/2024 11:22 AM DOBBY LOOM CHAIN PEGGER VALPROIC ACID LEVEL, TOTAL STAT 06/12/2024 11:22 AM DOBBY LOOM CHAIN PEGGER ECG 12-LEAD Routine 06/12/2024 11:01 AM DOBBY LOOM CHAIN PEGGER TNI WITH LIPID PANEL Routine 08/24/2017 4:57 PM CDT from Last 3 Months or Most Recently Relevant to Health Maintenance Results * POCT Rapid HIV Antibody Community Screening-Issa Eligible (07/09/2024 5:32 AM DOBBY LOOM CHAIN PEGGER) Rapid HIV, POC Negative Negative Lot Number [id number] QC Control Line Acceptable Blood 07/09/2024 5:32 AM DOBBY LOOM CH[employer] PEGGER Naa Tam MD POINT OF CARE TEST ORDER NICHOLE Final Result * Sepsis Lactate w/ Reflex (07/09/2024 4:33 AM DOBBY LOOM CHAIN PEGGER) Pathologist [facility] Sepsis Lactate 2.0 0.7 - 2.0 mmol/L Blood 07/09/2024 4:33 AM DOBBY LOOM CHAIN PEGGER 07/09/2024 4:42 AM DOBBY LOOM CHAIN PEGGER us Naa Tam MD LAB BLOOD ORDERABLES Fin al Result Performing Organization Address City/State/[facility] Co de Phone Number [facility] Department [place] [address] * ED PERIPHERAL LINE INSERTION (07/09/2024 1:18 AM DOBBY LOOM CHAIN PEGGER) Narrative Cherie Damian MD - 07/09/2024 1:18 AM [employer] CH[employer] PE[employer]ER Atul Barba MD 07/09/2024 1:18 AM Peripheral [...] Sepsis Lactate w/ Reflex (07/09/2024 1:15 AM DOBBY LOOM CH[employer] PEGGER) Sepsis Lactate 2.8(H) 0.7 - 2.0 mmol/L Blood 07/09/2024 1:15 AM DOBB[employer]OM CH[employer] PEGGER 07/09/2024 1:46 AM DOBBY LOOM CHAIN PEGGER Result [facility] Naa Tam MD LAB BLOOD ORDERABLES Fin al Result Performing Organization Address City/[facility]/ZIP Co de Phone Number [facility] Department [place] [address] * RPR Blood (07/09/2024 1:15 AM DOBBY LOOM CHAIN PEGGER) Pathologist [facility] RPR Nonreactive Nonreactive Blood 07/09/2024 1:15 AM DOBB[employer] LOOM CH[employer] PEGGER 07/09/2024 1:40 AM DOBBY LOOM CHAIN PEGGER Result [facility] Naa Tam MD LAB MICROBIOLOGY - GENER AL ORDERABLES Final Result Performing Organization Address [facility] de Phone Number [facility] Department [place] [address] * N. gonorrhoeae/C. trachomatis Amplification Urine (07/09/2024 1:02 AM DOBBY LOOM CH[employer] PEGGER) Pathologist [facility] C. trachomatis Not Detected Not Detected [facility] N. gonorrhoeae Not Detected Not Detected [facility] Comment: Interpretive Data This assay detects Chlamydia trachomatis and Neisseria gonorrhoeae by nucleic acid amplification testing (NAAT). This assay has been cleared by the [place] Food and Drug administration. The performance characteristics of this test have been verified by the [facility] Molecular Infectious Disease laboratory. The performance characteristics of this test have not been evaluated in individuals less than 14 years of age. Current Interpretive Data last revised 2023. Urine (None) 07/09/2024 1:02 AM DOBBY [employer] CH[employer] PEGGER 07/09/2024 1:35 AM DOBB[employer] LOOM CHAIN PEGGER Result [facility] Naa Tam MD LAB MICROBIOLOGY - GENER AL ORDERABLES Final Result [facility] [place] [address] [facility] * (ABNORMAL) Urinalysis reflex to microscopic and culture Urine, clean voided (07/09/2024 1:02 AM DOBBY LOOM CH[employer] PEGGER) Color, ur Straw Yellow Clarity, ur Clear Clear [facility] Specific gravity, ur >1.042(H) 1.003 - 1.030 [facility] pH, urine 7.5 [facility] Comment: Interpretive Data U rine pH is affected by diet, medications, systemic acid-base disturbances, and renal tubular function. pH may affect urinary stone formation. For example, urine pH below 6.0 may help reduce the tendency for calcium phosphate stones and pH greater than 6.0 may reduce the tendency for uric acid stone formation. Source: [facility] Current Interpretive Data was last revised on 2017 Protein, ur ql Trace Negative [facility] Glucose, ur ql Negative Negative [facility] Ketones, ur Negative Negative [facility] Bilirubin, ur Negative Negative [facility] Blood, ur Negative Negative [facility] Urobilinogen, ur <2.0 <2.0 mg/dL [facility] Nitrite, ur Negative Negative [facility] Leukocyte esterase, ur Negative Negative [facility] UA reflex comment Reflex conditions for microscopic UA and culture not met. [facility] Urine, clean voided 07/09/2024 1:02 AM [employer] CH[employer] PEGGER 07/09/2024 1:15 AM [employer] CH[employer] PEGGER us Naa Tam MD LAB MICROBIOLOGY - GENER AL ORDERABLES Final Result Performing Organization Address [facility]/ZIP Co de Phone Number [facility] Department [place] [address] * ED PERIPHERAL LINE INSERTION (07/08/2024 10:11 PM [employer] CH[employer] PEGGER) Narrative Tri Martinez MD - 07/08/2024 10:11 PM [employer]ER Atul Barba MD 07/08/2024 10:12 PM Peripheral [...] Abdomen Pelvis W Contrast (07/08/2024 9:55 PM [employer] CH[employer] PEGGER) Anatomical Region Laterality Modality Body N/A Computed Tomogra phy 07/08/2024 10:3 2 PM [employer]ER Impressions 07/09/2024 7:23 AM [employer] CH[employer]GGER Liquid stool within the colon, indicative of diarrheal state. Otherwise, no acute abnormalities in the abdomen or pelvis. Dictated by: Delia Morton MD The radiology attending physician has personally reviewed this study, and had reviewed and/or edited this written report and agrees with it. Electronically signed by: Marlon Kohler M.D. Narrative 07/09/2024 7:23 AM [employer]ER EXAMINATION: Computed tomography of the chest, abdomen [...] Sepsis Lactate w/ Reflex (07/08/2024 8:56 PM DO[employer] CH[employer] PEGGER) Pathologist [facility] Sepsis Lactate 2.4(H) 0.7 - 2.0 mmol/L Blood 07/08/2024 8:56 PM [employer] CH[employer] PEGGER 07/08/2024 9:24 PM [employer] CH[employer] PEGGER us Naa Tam MD LAB BLOOD ORDERABLES Fin al Result [facility] Department [place] [address] * eGFR (07/08/2024 8:56 PM DO[employer]Y [employer] CH[employer] PEGGER) Pathologist [facility] eGFR >90 >=60 mL/min/1. 73 m2 Comment: [...] last reviewed 2021. Blood 07/08/2024 8:56 PM [employer] CH[employer] PEGGER 07/08/2024 9:26 PM [employer] CH[employer] PEGGER us Naa Tam MD LAB BLOOD ORDERABLES Fin al Result [facility] Department [place] [address] * Differential, auto (07/08/2024 8:56 PM [employer] CH[employer] PEGGER) Neutrophil abs 4.4 1.5 - 6.5 K/cumm Imm gran abs 0.0 0.0 - 0.1 K/cumm [facility] Lymphocyte abs 2.6 0.8 - 3.3 K/cumm [facility] Monocyte abs 0.5 0.2 - 0.8 K/cumm [facility] Eosinophil abs 0.5 0.0 - 0.5 K/cumm [facility] Basophil abs 0.0 0.0 - 0.1 K/cumm [facility] Neutrophil pct 54.7 % [facility] Comment: Interpretive Data Percent cell count reference ranges are not reported, since discordance with absolute values may lead to misinterpretation of CBC data. Current Interpretive Data was last revised on 2017. Imm gran pct 0.2 % [facility] Comment: Interpretive Data Percent cell count reference ranges are not reported, since discordance with absolute values may lead to misinterpretation of CBC data. Current Interpretive Data was last revised on 2017. Lymphocyte pct 32.1 % [facility] Comment: Interpretive Data Percent cell count reference ranges are not reported, since discordance with absolute values may lead to misinterpretation of CBC data. Current Interpretive Data was last revised on 2017. Monocyte pct 6.6 % [facility] Comment: Interpretive Data Percent cell count reference ranges are not reported, since discordance with absolute values may lead to misinterpretation of CBC data. Current Interpretive Data was last revised on 2017. Eosinophil pct 6.0 % [facility] Comment: Interpretive Data Percent cell count reference ranges are not reported, since discordance with absolute values may lead to misinterpretation of CBC data. Current Interpretive Data was last revised on 2017. Basophil pct 0.4 % [facility] Comment: Interpretive Data Percent cell count reference ranges are not reported, since discordance with absolute values may lead to misinterpretation of CBC data. Current Interpretive Data was last revised on 2017. Blood 07/08/2024 8:56 PM [employer] 07/08/2024 9:27 PM [employer] us Naa Tam MD LAB BLOOD ORDERABLES Fin al Result [facility] One [facility] Department [place] [address] * Respiratory pathogen panel Nasopharyngeal (07/08/2024 8:56 PM [employer]) Pathologist [facility] Influenza A RNA Not Detected Not Detected Influenza B RNA Not Detected Not Detected [facility] RSV RNA Not Detected Not Detected [facility] COVID-19 RNA Not Detected Not Detected [facility] Coronavirus 229E RNA Not Detected Not Detected [facility] Coronavirus HKU1 RNA Not Detected Not Detected [facility] Coronavirus NL63 RNA Not Detected Not Detected [facility] Coronavirus OC43 RNA Not Detected Not Detected [facility] Adenovirus DNA Not Detected Not Detected [facility] Metapneumovirus RNA Not Detected Not Detected [facility] Rhinovirus/Enterov irus RNA Not Detected Not Detected [facility] Parainfluenza 1 RNA Not Detected Not Detected [facility] Parainfluenza 2 RNA Not Detected Not Detected [facility] Parainfluenza 3 RNA Not Detected Not Detected [facility] Parainfluenza 4 RNA Not Detected Not Detected [facility] B. pertussis DNA Not Detected Not Detected [facility] B. parapertussis DNA Not Detected Not Detected [facility] C. pneumoniae DNA Not Detected Not Detected [facility] M. pneumoniae DNA Not Detected Not Detected [facility] Nasopharyngeal 07/08/2024 8: 56 PM [employer] 07/08/2024 9:25 PM [employer] Narrative [facility] - 07/08/2024 10:16 PM [employer] Is the Patient experiencing symptoms consistent with COVID?->Yes Surveillance testing for transplant patient?->No Interpretive Data The [employer] FilmArray Respiratory Panel (RP2.1) assay is a [...] assay has FDA clearance for testing of [employer] swabs. The performance of additional specimen types has been assessed by the performing laboratory. The performance characteristics of this assay have been determined by [facility] Molecular Infectious Disease Laboratory. Current interpretive data was last revised on 22. us Naa Tam MD LAB MICROBIOLOGY - [facility] ORDERABLES Final Result [facility] One [facility] Department [place] [address] * (ABNORMAL) CBC with auto differential (07/08/2024 8:56 PM [employer]) WBC 8.0 3.8 - 9.9 K/cumm Hgb 14.4 13.0 - 17.5 g/dL [facility] Hct 43.3 38.9 - 50.3 % [facility] Plt 236 150 - 400 K/cumm [facility] MPV 12.4(H) 9.1 - 12.3 fL [facility] RBC 4.49 4.30 - 5.80 M/cumm [facility] MCV 96.4 81.3 - 96.4 fL [facility] MCH 32.1 27.1 - 33.3 pg [facility] MCHC 33.3 32.3 - 35.7 g/dL [facility] RDW CV 13.5 11.1 - 14.9 % [facility] RDW SD 47.9 35.7 - 48.1 fL [facility] NRBC abs 0.00 0.00 - 0.01 K/cumm [facility] Blood 07/08/2024 8:56 PM [employer] 07/08/2024 9:27 PM [employer] us Naa Tam MD LAB BLOOD ORDERABLES Fin al Result Performing Organization Address City/[facility]/ZIP Co de Phone Number [facility] One [facility] [place] [address] * Lipase (07/08/2024 8:56 PM [employer]) Pathologist [facility] Lipase 32 10 - 99 Units/L Blood 07/08/2024 8:56 PM [employer] 07/08/2024 9:26 PM [employer] us Naa Tam MD LAB BLOOD ORDERABLES Fin al Result Performing Organization Address [facility] de Phone Number [facility] [place] [address] * (ABNORMAL) Comprehensive metabolic panel (07/08/2024 8:56 PM [employer]) [facility] Sodium 141 135 - 145 mmol/L Potassium, pl 4.5 3.3 - 4.9 mmol/L [facility] Chloride 102 97 - 110 mmol/L [facility] CO2 28 22 - 32 mmol/L [facility] Anion gap 11 2 - 15 mmol/L [facility] BUN 15 6 - 25 mg/dL [facility] Creatinine 0.63(L) 0.80 - 1.30 mg/dL [facility] Glucose 110 70 - 199 mg/dL [facility] Comment: Interpretive Data Fasting glucose >/= [...] 2022. Calcium 10.1 8.5 - 10.3 mg/dL [facility] Bilirubin, total 0.2 0.1 - 1.2 mg/dL [facility] Protein, pl 8.0 6.5 - 8.5 g/dL [facility] Albumin 4.1 3.5 - 5.0 g/dL [facility] Alk phos 110 40 - 130 Units/L [facility] ALT 28 7 - 55 Units/L [facility] AST 26 10 - 50 Units/L [facility] Blood 07/08/2024 8:56 PM [employer] 07/08/2024 9:26 PM [employer] us Naa Tam MD LAB BLOOD ORDERABLES Fin al Result Performing Organization Address [facility] Co de Phone Number [facility] One [facility] Department [place] [address] * ECG 12-LEAD (07/08/2024 8:28 PM [employer]) Narrative [facility] - 07/08/2024 8:28 PM [employer] Naa Tam MD 07/08/2024 8:30 PM ECG [...] ORDERABLES Final Re sult Performing Organization Address [facility]/ZIP Co de Phone Number [facility] * XR Chest 1 View (07/08/2024 8:18 PM [employer]) Anatomical Region Laterality Modality Body, Chest N/A Computed Radiogr aphy 07/08/2024 8:28 PM [employer] Impressions 07/08/2024 9:56 PM [employer] Comparison is made to chest graft dated [...] Sekou Wolf M.D. Narrative 07/08/2024 9:56 PM [employer] EXAMINATION: 1 view chest radiograph Procedure Note [...] Result * POCT glucose (06/28/2024 4:24 PM [employer]) Glucose, POC 191 70 - 199 mg/dL Blood 06/28/2024 4:24 PM [employer] 06/28/2024 4:24 PM [employer] us Kami Dpuont MD LAB POCT ORDERABLES - DEV ICE Final Result [facility] One [facility] Department [place] [address] * POCT glucose (06/28/2024 12:30 PM [employer]) Glucose, POC 197 70 - 199 mg/dL Blood 06/28/2024 12:3 0 PM [employer] 06/28/2024 12:30 PM [employer] Kami Dupont MD LAB POCT ORDERABLES - DEV ICE Final Result Performing Organization Address [facility] Co de Phone Number [facility] [address] * POCT glucose (06/28/2024 7:43 AM [employer]) Glucose, POC 191 70 - 199 mg/dL Blood 06/28/2024 7:43 AM [employer] 06/28/2024 7:43 AM [employer] Kami Dupont MD LAB POCT ORDERABLES - DEV ICE Final Result Performing Organization Address [facility] de Phone Number [facility] [address] * POCT glucose (06/28/2024 4:01 AM [employer]) Glucose, POC 173 70 - 199 mg/dL Blood 06/28/2024 4:01 AM [employer] 06/28/2024 4:01 AM [employer] Kami Dupont MD LAB POCT ORDERABLES - DEV ICE Final Result Performing Organization Address [facility] Co de Phone Number [facility] [address] * (ABNORMAL) POCT glucose (06/27/2024 11:28 PM [employer]) Glucose, POC 220(H) 70 - 199 mg/dL Comment:Use Protocol Glucose comment 1 Use Protocol [facility] Blood 06/27/2024 11:2 8 PM [employer] 06/27/2024 11:28 PM [employer] Kami Dupont MD LAB POCT ORDERABLES - DEV ICE Final Result Performing Organization Address [facility] Co de Phone Number [facility] Department [place] [address] * eGFR (06/27/2024 9:30 PM [employer]) eGFR >90 >=60 mL/min/1. 73 m2 Comment: [...] last reviewed 2021. Blood 06/27/2024 9:30 PM [employer] 06/27/2024 9:45 PM [employer] Kami Dupont MD LAB BLOOD ORDERABLES Lulu l Result Performing Organization Address City/[facility]/ZIP Co de Phone Number [facility] Department [place] [address] * Phosphorus (06/27/2024 9:30 PM [employer]) Phosphorus, pl 3.3 2.3 - 4.5 mg/dL Comment:Repeated and Verifie d Blood 06/27/2024 9:30 PM [employer] 06/27/2024 9:45 PM [employer] Kami Dupont MD LAB BLOOD ORDERABLES Lulu l Result Performing Organization Address City/[facility]/ZIP Co de Phone Number [facility] Department [place] [address] * Magnesium (06/27/2024 9:30 PM [employer]) Pathologist [facility] Magnesium 1.9 1.4 - 2.5 mg/dL Blood 06/27/2024 9:30 PM [employer] 06/27/2024 9:45 PM [employer] Kami Dupont MD LAB BLOOD ORDERABLES Lulu l Result Performing Organization Address [facility] de Phone Number [facility] [place] [address] * (ABNORMAL) Basic metabolic panel (06/27/2024 9:30 PM [employer]) [facility] Sodium 141 135 - 145 mmol/L Potassium, pl 4.4 3.3 - 4.9 mmol/L [facility] Chloride 105 97 - 110 mmol/L [facility] CO2 28 22 - 32 mmol/L [facility] Anion gap 8 2 - 15 mmol/L [facility] BUN 9 6 - 25 mg/dL [facility] Creatinine 0.47(L) 0.80 - 1.30 mg/dL [facility] Glucose 208(H) 70 - 199 mg/dL [facility] Comment: Interpretive Data Fasting glucose >/= [...] 2022. Calcium 8.9 8.5 - 10.3 mg/dL [facility] Blood 06/27/2024 9:30 PM [employer] 06/27/2024 9:45 PM [employer] Kami Dupont MD LAB BLOOD ORDERABLES Lulu l Result Performing Organization Address [facility] Co de Phone Number [facility] [place] [address] * POCT glucose (06/27/2024 8:39 PM [employer]) Glucose, POC 195 70 - 199 mg/dL Blood 06/27/2024 8:39 PM [employer] 06/27/2024 8:39 PM [employer] Kami Dupont MD LAB POCT ORDERABLES - DEV ICE Final Result Performing Organization Address [facility] de Phone Number [facility] [address] * POCT glucose (06/27/2024 5:10 PM [employer]) Glucose, POC 194 70 - 199 mg/dL Blood 06/27/2024 5:10 PM [employer] 06/27/2024 5:10 PM [employer] Kami Dupont MD LAB POCT ORDERABLES - DEV ICE Final Result Performing Organization Address [facility] Co de Phone Number [facility] [address] * (ABNORMAL) POCT glucose (06/27/2024 4:27 PM [employer]) Glucose, POC 224(H) 70 - 199 mg/dL Blood 06/27/2024 4:27 PM [employer] 06/27/2024 4:27 PM [employer] Kami Dupont MD LAB POCT ORDERABLES - DEV ICE Final Result Performing Organization Address City/[facility] Co de Phone Number [facility] [place] [address] * POCT glucose (06/27/2024 1:06 PM [employer]) Glucose, POC 173 70 - 199 mg/dL Blood 06/27/2024 1:06 PM [employer] 06/27/2024 1:06 PM [employer] Kami Dupont MD LAB POCT ORDERABLES - DEV ICE Final Result Performing Organization Address [facility] de Phone Number [facility] [place] [address] * POCT glucose (06/27/2024 9:59 AM [employer]) Glucose, POC 158 70 - 199 mg/dL Blood 06/27/2024 9:59 AM [employer] 06/27/2024 9:59 AM [employer] Kami Dupont MD LAB POCT ORDERABLES - DEV ICE Final Result Performing Organization Address [facility] Co de Phone Number [facility] Department [place] [address] * eGFR (06/26/2024 10:21 PM [employer]) eGFR >90 >=60 mL/min/1. 73 m2 Comment: [...] reviewed 2021. Blood 06/26/2024 10:2 1 PM [employer] 06/26/2024 10:53 PM [employer] us Kami Dupont MD LAB BLOOD ORDERABLES Lulu coley Result [facility] One [facility] Department [place] [address] * Differential, auto (06/26/2024 10:21 PM [employer]) Neutrophil abs 5.0 1.5 - 6.5 K/cumm Imm gran abs 0.0 0.0 - 0.1 K/cumm [facility] Lymphocyte abs 2.4 0.8 - 3.3 K/cumm [facility] Monocyte abs 0.8 0.2 - 0.8 K/cumm [facility] Eosinophil abs 0.4 0.0 - 0.5 K/cumm [facility] Basophil abs 0.0 0.0 - 0.1 K/cumm [facility] Neutrophil pct 58.2 % [facility] Comment: Interpretive Data Percent cell count reference ranges are not reported, since discordance with absolute values may lead to misinterpretation of CBC data. Current Interpretive Data was last revised on 2017. Imm gran pct 0.3 % [facility] Comment: Interpretive Data Percent cell count reference ranges are not reported, since discordance with absolute values may lead to misinterpretation of CBC data. Current Interpretive Data was last revised on 2017. Lymphocyte pct 27.9 % [facility] Comment: Interpretive Data Percent cell count reference ranges are not reported, since discordance with absolute values may lead to misinterpretation of CBC data. Current Interpretive Data was last revised on 2017. Monocyte pct 9.2 % [facility] Comment: Interpretive Data Percent cell count reference ranges are not reported, since discordance with absolute values may lead to misinterpretation of CBC data. Current Interpretive Data was last revised on 2017. Eosinophil pct 4.1 % [facility] Comment: Interpretive Data Percent cell count reference ranges are not reported, since discordance with absolute values may lead to misinterpretation of CBC data. Current Interpretive Data was last revised on 2017. Basophil pct 0.3 % [facility] Comment: Interpretive Data Percent cell count reference ranges are not reported, since discordance with absolute values may lead to misinterpretation of CBC data. Current Interpretive Data was last revised on 2017. Blood 06/26/2024 10:2 1 PM [employer] 06/26/2024 10:53 PM [employer] us Kami Dupont MD LAB BLOOD ORDERABLES Lulu coley Result [facility] One [facility] Department [place] [address] * (ABNORMAL) CBC with auto differential (06/26/2024 10:21 PM [employer]) WBC 8.6 3.8 - 9.9 K/cumm Hgb 13.1 13.0 - 17.5 g/dL [facility] Hct 39.1 38.9 - 50.3 % [facility] Plt 173 150 - 400 K/cumm [facility] MPV 13.1(H) 9.1 - 12.3 fL [facility] RBC 4.07(L) 4.30 - 5.80 M/cumm [facility] MCV 96.1 81.3 - 96.4 fL [facility] MCH 32.2 27.1 - 33.3 pg [facility] MCHC 33.5 32.3 - 35.7 g/dL [facility] RDW CV 13.5 11.1 - 14.9 % [facility] RDW SD 47.8 35.7 - 48.1 fL [facility] NRBC abs 0.00 0.00 - 0.01 K/cumm [facility] Blood 06/26/2024 10:2 1 PM [employer] 06/26/2024 10:53 PM [employer] Kami Dupont MD LAB BLOOD ORDERABLES Lulu l Result Performing Organization Address [facility] Co de Phone Number [facility] [place] [address] * Hepatitis B Surface Antigen Blood (06/26/2024 10:21 PM [employer]) HepBsAg Nonreactive Nonreactive Blood 06/26/2024 10:2 1 PM [employer] 06/26/2024 10:53 PM [employer] Kami Dupont MD LAB MICROBIOLOGY - GENERA L ORDERABLES Final Result Performing Organization Address [facility] de Phone Number [facility] [address] * (ABNORMAL) Phosphorus (06/26/2024 10:21 PM [employer]) Phosphorus, pl <0.7(L) 2.3 - 4.5 mg/dL Comment:Repeated and Verifie d Blood 06/26/2024 10:2 1 PM [employer] 06/26/2024 10:53 PM [employer] Kami Dupont MD LAB BLOOD ORDERABLES Lulu l Result Performing Organization Address [facility] [place] [address] * Magnesium (06/26/2024 10:21 PM [employer]) Magnesium 2.0 1.4 - 2.5 mg/dL Blood 06/26/2024 10:2 1 PM [employer] 06/26/2024 10:53 PM [employer] Kami Dupont MD LAB BLOOD ORDERABLES Lulu coley Result Performing Organization Address City/[facility]/ZIP Co de Phone Number [facility] Department [place] [address] * (ABNORMAL) Basic metabolic panel (06/26/2024 10:21 PM [employer]) [facility] Sodium 141 135 - 145 mmol/L Potassium, pl 4.7 3.3 - 4.9 mmol/L [facility] Chloride 106 97 - 110 mmol/L [facility] CO2 28 22 - 32 mmol/L [facility] Anion gap 7 2 - 15 mmol/L [facility] BUN 11 6 - 25 mg/dL [facility] Creatinine 0.47(L) 0.80 - 1.30 mg/dL [facility] Glucose 213(H) 70 - 199 mg/dL [facility] Comment: Interpretive Data Fasting glucose >/= [...] 2022. Calcium 9.3 8.5 - 10.3 mg/dL [facility] Blood 06/26/2024 10:2 1 PM [employer] 06/26/2024 10:53 PM [employer] Kami Dupont MD LAB BLOOD ORDERABLES Lulu l Result Performing Organization Address [facility]/ZIP Co de Phone Number [facility] Department [place] [address] * HIV 1/2 Antibody plus p24 Antigen Blood (06/26/2024 3:21 PM [employer]) HIV 1/2 ab + p24 ag Nonreactive Nonreactive Comment:Nonreactive for HIV- 1 antigen and HIV-1/HIV-2 antibodies. No laboratory evidence of HIV infection. If acute HIV infection is suspected, consider testing for HIV-1 RNA. Current interpretive data was last revised on 22. Blood 06/26/2024 3:21 PM [employer] 06/26/2024 3:41 PM [employer] Kami Dupont MD LAB MICROBIOLOGY - GENERA L ORDERABLES Final Result Performing Organization Address [facility] Co de Phone Number [facility] [address] * Hepatitis C antibody Blood (06/26/2024 3:21 PM [employer]) Hep C Ab Nonreactive Nonreactive Comment:Antibodies to HCV no t detected. Does NOT exclude the possibility of recent exposure to HCV. Current interpretive data was last revised on 22 Blood 06/26/2024 3:21 PM [employer] 06/26/2024 3:41 PM [employer] Kami Dupont MD LAB MICROBIOLOGY - GENERA L ORDERABLES Final Result Performing Organization Address [facility] Co de Phone Number [facility] [place] [address] * RPR Blood (06/26/2024 3:21 PM [employer]) RPR Nonreactive Nonreactive Blood 06/26/2024 3:21 PM [employer] 06/26/2024 3:41 PM [employer] Kami Dupont MD LAB MICROBIOLOGY - GENERA L ORDERABLES Final Result Performing Organization Address [facility] Co de Phone Number [facility] [address] * (ABNORMAL) Phosphorus (06/26/2024 3:21 PM [employer]) Phosphorus, pl 0.7(L) 2.3 - 4.5 mg/dL Comment:Repeated and Verifie d Blood 06/26/2024 3:21 PM [employer] 06/26/2024 3:41 PM [employer] Kami Dupont MD LAB BLOOD ORDERABLES Lulu l Result Performing Organization Address City/[facility]/ZIP Co de Phone Number [facility] [place] [address] * eGFR (06/26/2024 12:16 AM [employer]) eGFR >90 >=60 mL/min/1. 73 m2 Comment: [...] reviewed 2021. Blood 06/26/2024 12:1 6 AM [employer] 06/26/2024 12:39 AM [employer] us Patricia Bryant MD LAB BLOOD ORDERABLES Final Res ult Performing Organization Address City/[facility]/ZIP Co de Phone Number [facility] Department [place] [address] * (ABNORMAL) Phosphorus (06/26/2024 12:16 AM [employer]GG[employer]) [facility] Phosphorus, pl <0.7(L) 2.3 - 4.5 mg/dL Comment:Repeated and Verifie d Blood 06/26/2024 12:1 6 AM [employer] 06/26/2024 12:39 AM [employer] Patricia Bryant MD LAB BLOOD ORDERABLES Final Res ult Performing Organization Address City/[facility]/ZIP Co de Phone Number [facility] [facility] Department [place] [address] * Magnesium (06/26/2024 12:16 AM DOBBY LOOM CHAIN PEGGER) [facility] Magnesium 1.9 1.4 - 2.5 mg/dL Blood 06/26/2024 12:1 6 AM DOBBY LO[employer] CHAIN PEGGER 06/26/2024 12:39 AM DOBBY LO[employer] CHAIN PEGGER Patricia Bryant MD LAB BLOOD ORDERABLES Final Res ult Performing Organization Address [facility] de Phone Number [facility] Department [place] [address] * (ABNORMAL) Basic metabolic panel (06/26/2024 12:16 AM DOBBY LOOM CHAIN PEGGER) [facility] Sodium 142 135 - 145 mmol/L Potassium, pl 4.4 3.3 - 4.9 mmol/L [facility] Comment:Hemolyzed; Potassium value may be falsely elevated by as much as 0.3-0.5 mmol/L. Suggest redraw and reanalysis. Chloride 109 97 - 110 mmol/L [facility] CO2 29 22 - 32 mmol/L [facility] Anion gap 4 2 - 15 mmol/L [facility] BUN 13 6 - 25 mg/dL [facility] Creatinine 0.53(L) 0.80 - 1.30 mg/dL [facility] Glucose 177 70 - 199 mg/dL [facility] Comment: Interpretive Data Fasting glucose >/= [...] 2022. Calcium 9.0 8.5 - 10.3 mg/dL [facility] Blood 06/26/2024 12:1 6 AM DOBBY LO[employer] CH[employer] PEGGER 06/26/2024 12:39 AM DOBBY [employer] CH[employer] PEGGER Patricia Bryant MD LAB BLOOD ORDERABLES Final Res ult Performing Organization Address [facility] de Phone Number [facility] Department [place] [address] * POCT glucose (06/23/2024 11:36 AM DOBBY LOOM CH[employer] PEGGER) Glucose, POC 95 70 - 199 mg/dL Blood 06/23/2024 11:3 6 AM DOBBY [employer] CH[employer] PEGGER 06/23/2024 11:36 AM DOBBY LO[employer] CH[employer] PEGGER Patricia Bryant MD LAB POCT ORDERABLES - DEVICE F inal Result Performing Organization Address [facility] de Phone Number [facility] Department [place] [address] * (ABNORMAL) CBC without differential (06/23/2024 9:07 AM DOBBY LOOM CH[employer] PEGGER) WBC 4.7 3.8 - 9.9 K/cumm Hgb 12.5(L) 13.0 - 17.5 g/dL [facility] Hct 37.4(L) 38.9 - 50.3 % [facility] Plt 145(L) 150 - 400 K/cumm [facility] MPV 12.6(H) 9.1 - 12.3 fL [facility] RBC 3.94(L) 4.30 - 5.80 M/cumm [facility] MCV 94.9 81.3 - 96.4 fL [facility] MCH 31.7 27.1 - 33.3 pg [facility] MCHC 33.4 32.3 - 35.7 g/dL [facility] RDW CV 12.9 11.1 - 14.9 % [facility] RDW SD 45.1 35.7 - 48.1 fL [facility] NRBC abs 0.00 0.00 - 0.01 K/cumm [facility] Blood 06/23/2024 9:07 AM DOBBY [employer] CH[employer] PEGGER 06/23/2024 9:28 AM DOBBY [employer] CH[employer] PEGGER us Patricia Bryant MD LAB BLOOD ORDERABLES Final Res ult [facility] Department [place] [address] * eGFR (06/23/2024 9:00 AM DOBBY LOOM CH[employer] PEGGER) eGFR >90 >=60 mL/min/1. 73 m2 Comment: [...] last reviewed 2021. Blood 06/23/2024 9:00 AM DOBBY [employer] CH[employer] PEGGER 06/23/2024 10:59 AM DOBBY LOOM CH[employer] PEGGER us Patricia Bryant MD LAB BLOOD ORDERABLES Final Res ult Performing Organization Address City/[facility] [place] [address] * Phosphorus (06/23/2024 9:00 AM DOBBY LO[employer] CH[employer] PEGGER) Phosphorus, pl 2.3 2.3 - 4.5 mg/dL Blood 06/23/2024 9:00 AM DOBB[employer] CH[employer] PEGGER 06/23/2024 10:59 AM DOBBY LO[employer] CH[employer] PEGGER us Patricia Bryant MD LAB BLOOD ORDERABLES Final Res ult Performing Organization Address [facility] [address] * Magnesium (06/23/2024 9:00 AM DOBBY LOOM CH[employer] PEGGER) Magnesium 1.7 1.4 - 2.5 mg/dL Blood 06/23/2024 9:00 AM DOBBY [employer] CH[employer] PEGGER 06/23/2024 10:59 AM DOBBY LOOM CH[employer] PEGGER us Patricia Bryant MD LAB BLOOD ORDERABLES Final Res ult Performing Organization Address [facility] [place] [address] * Vancomycin level trough (06/23/2024 9:00 AM DOBBY LO[employer] CH[employer] PEGGER) Vancomycin trough 15.2 10.0 - 20.0 mcg/mL Blood 06/23/2024 9:00 AM DOBBY [employer] PEGGER 06/23/2024 10:59 AM DOBBY [employer] CH[employer] PEGGER Result Rose Bryant MD LAB BLOOD ORDERABLES Final Res ult Performing Organization Address [facility] Co de Phone Number [facility] [address] * (ABNORMAL) Basic metabolic panel (06/23/2024 9:00 AM DOBBY LO[employer] CH[employer] PEGGER) Sodium 143 135 - 145 mmol/L Potassium, pl 3.7 3.3 - 4.9 mmol/L [facility] Chloride 108 97 - 110 mmol/L [facility] CO2 28 22 - 32 mmol/L [facility] Anion gap 7 2 - 15 mmol/L [facility] BUN 3(L) 6 - 25 mg/dL [facility] Creatinine 0.50(L) 0.80 - 1.30 mg/dL [facility] Glucose 271(H) 70 - 199 mg/dL [facility] Comment: Interpretive Data Fasting glucose >/= [...] 2022. Calcium 9.0 8.5 - 10.3 mg/dL [facility] Blood 06/23/2024 9:00 AM DOBBY LO[employer] CH[employer] PEGGER 06/23/2024 10:59 AM DOBBY LOOM CH[employer] PEGGER us Patricia Bryant MD LAB BLOOD ORDERABLES Final Res ult [facility] Department [place] [address] * IR G To GJ-Tube Replacement (06/22/2024 1:24 PM DOBBY LOOM CHAIN PEGGER) Anatomical Region Laterality Modality Body N/A X-Ray Angiograph y 06/22/2024 1:47 PM DOBBY LO[employer] CH[employer] PEGGER Impressions 06/22/2024 4:13 PM DOBBY [employer] CH[employer] PEGGER Successful percutaneous 18 Fr 45 cm gastrojejunostomy [...] Sean Hillman M.D. Narrative 06/22/2024 4:13 PM DOBBY LO[employer] CH[employer] PEGGER EXAMINATION: GASTROJEJUNOSTOMY TUBE EXCHANGE HISTORY/INDICATION: 64 yo [...] procedure. TECHNIQUE: Prior to beginning the procedure, [place] Protocol was performed to confirm the patient's [...] placed in the proximal jejunum. A 18 [place], 45 cm long JELLY single/double lumen gastrojejunostomy [...] procedure. TECHNIQUE: Prior to beginning the procedure, [place] Protocol was performed to confirm the patient's [...] placed in the proximal jejunum. A 18 [place], 45 cm long JELLY single/double lumen gastrojejunostomy [...] by: Sean Hillman M.D. Patricia Bryant MD [facility] IR PROCEDURES Final Result * C. difficile testing Stool (06/21/2024 11:11 AM DOBBY LOOM CHAIN PEGGER) [facility] Result Negative Negative Toxin Result Negative Negative [facility] C. diff result Negative, free toxin Negative, free toxin [facility] C. diff interp Negative for toxigenic Clostridioides (Clostridium) difficile. Analysis was performed using a glutamate dehydrogenase antigen detection assay combined with a C. difficile toxin detection assay. [facility] Stool 06/21/2024 11:1 1 AM DOBBY [employer] CH[employer] PEGGER 06/21/2024 12:55 PM DOBBY [employer]OM CH[employer] PEGGER Narrative [facility] - 06/21/2024 2:38 PM DOBBY LO[employer] CH[employer] PEGGER Testing for C. difficile is not recommended within 4 days of a negative result, 10 days of a positive, or 24 hours after laxative administration. If this order is clinically indicated, contact the lab and enter the passcode to complete this order.->[id number] Patricia Bryant MD LAB MICROBIOLOGY - GENERAL ORD ERABLES Final Result Performing Organization Address City/[facility]/ZIP Co de Phone Number [facility] Department [place] [address] * Infection Prevention VRE Culture Stool (06/21/2024 11:10 AM DOBBY LOOM CHAIN PEGGER) Report Final Report: Negative Stool 06/21/2024 11:1 0 AM DOBBY LOOM CHAIN PEGGER 06/21/2024 2:41 PM DOBBY LOOM CH[employer] PEGGER Narrative [facility] 06/23/2024 11:15 PM DOBBY LOOM CHAIN PEGGER Surveillance culture for Infection Prevention purposes only; results indicate colonization, not infection requiring treatment. Testing performed by [facility]biology [facility] ([phone]). Patricia Bryant MD LAB MICROBIOLOGY - GENERAL ORD ERABLES Final Result [facility] Department [place] [address] * Vancomycin level trough Draw trough 30 minutes prior to 4th dose. (06/21/2024 7:16 AM DOBBY LOOM CH[employer] PEGGER) Vancomycin trough 16.8 10.0 - 20.0 mcg/mL Blood 06/21/2024 7:16 AM DOBBY [employer] CH[employer] PEGGER 06/21/2024 7:27 AM DOBBY LOOM CH[employer] PEGGER Narrative [facility] - 06/21/2024 8:10 AM DOBBY LO[employer] CH[employer] PEGGER Draw trough 30 minutes prior to 4th dose. Patricia Bryant MD LAB BLOOD ORDERABLES Final Res ult Performing Organization Address City/[facility] Co de Phone Number [facility] [place] [address] * eGFR (06/21/2024 5:03 AM DOBBY LOOM CHAIN PEGGER) Pathologist [facility] eGFR >90 >=60 mL/min/1. 73 m2 Comment: [...] last reviewed 2021. Blood 06/21/2024 5:03 AM DOBBY LO[employer] CH[employer] PEGGER 06/21/2024 5:14 AM DOBBY LO[employer] CH[employer] PEGGER Patricia Bryant MD LAB BLOOD ORDERABLES Final Res ult Performing Organization Address City/[facility]/ZIP Co de Phone Number [facility] Department [place] [address] * Differential, auto (06/21/2024 5:03 AM DOBBY LOOM CH[employer] PEGGER) Pathologist [facility] Neutrophil abs 1.7 1.5 - 6.5 K/cumm Imm gran abs 0.0 0.0 - 0.1 K/cumm [facility] Lymphocyte abs 1.7 0.8 - 3.3 K/cumm [facility] Monocyte abs 0.6 0.2 - 0.8 K/cumm [facility] Eosinophil abs 0.3 0.0 - 0.5 K/cumm [facility] Basophil abs 0.0 0.0 - 0.1 K/cumm [facility] Neutrophil pct 38.8 % [facility] Comment: Interpretive Data Percent cell count reference ranges are not reported, since discordance with absolute values may lead to misinterpretation of CBC data. Current Interpretive Data was last revised on 2017. Imm gran pct 0.2 % [facility] Comment: Interpretive Data Percent cell count reference ranges are not reported, since discordance with absolute values may lead to misinterpretation of CBC data. Current Interpretive Data was last revised on 2017. Lymphocyte pct 40.5 % [facility] Comment: Interpretive Data Percent cell count reference ranges are not reported, since discordance with absolute values may lead to misinterpretation of CBC data. Current Interpretive Data was last revised on 2017. Monocyte pct 13.4 % [facility] Comment: Interpretive Data Percent cell count reference ranges are not reported, since discordance with absolute values may lead to misinterpretation of CBC data. Current Interpretive Data was last revised on 2017. Eosinophil pct 6.6 % [facility] Comment: Interpretive Data Percent cell count reference ranges are not reported, since discordance with absolute values may lead to misinterpretation of CBC data. Current Interpretive Data was last revised on 2017. Basophil pct 0.5 % [facility] Comment: Interpretive Data Percent cell count reference ranges are not reported, since discordance with absolute values may lead to misinterpretation of CBC data. Current Interpretive Data was last revised on 2017. Blood 06/21/2024 5:03 AM DOBBY LOOM CH[employer] PEGGER 06/21/2024 5:14 AM DOBBY LOOM CH[employer] PEGGER us Patricia Bryant MD LAB BLOOD ORDERABLES Final Res ult [facility] Department [place] [address] * (ABNORMAL) CBC with auto differential (06/21/2024 5:03 AM DOBBY LOOM CHAIN PEGGER) Pathologist [facility] WBC 4.3 3.8 - 9.9 K/cumm Hgb 11.6(L) 13.0 - 17.5 g/dL [facility] Hct 34.5(L) 38.9 - 50.3 % [facility] Plt 132(L) 150 - 400 K/cumm [facility] MPV 11.3 9.1 - 12.3 fL [facility] RBC 3.53(L) 4.30 - 5.80 M/cumm [facility] MCV 97.7(H) 81.3 - 96.4 fL [facility] MCH 32.9 27.1 - 33.3 pg [facility] MCHC 33.6 32.3 - 35.7 g/dL [facility] RDW CV 13.4 11.1 - 14.9 % [facility] RDW SD 48.0 35.7 - 48.1 fL [facility] NRBC abs 0.00 0.00 - 0.01 K/cumm [facility] Blood 06/21/2024 5:03 AM DOBBY LO[employer] CH[employer] PEGGER 06/21/2024 5:14 AM DOBBY [employer] CH[employer] PEGGER Patricia Bryant MD LAB BLOOD ORDERABLES Final Res ult Performing Organization Address [facility] Co de Phone Number [facility] [place] [address] * Phosphorus (06/21/2024 5:03 AM DOBBY LOOM CH[employer] PEGGER) Pathologist [facility] Phosphorus, pl 3.1 2.3 - 4.5 mg/dL Blood 06/21/2024 5:03 AM DOBBY [employer] CH[employer] PEGGER 06/21/2024 5:14 AM DOBBY [employer] CH[employer] PEGGER Patricia Bryant MD LAB BLOOD ORDERABLES Final Res ult Performing Organization Address [facility]/ZIP Co de Phone Number [facility] [place] [address] * Magnesium (06/21/2024 5:03 AM DOBBY LO[employer] CH[employer] PEGGER) Magnesium 1.9 1.4 - 2.5 mg/dL Blood 06/21/2024 5:03 AM DOBBY [employer] CH[employer] PEGGER 06/21/2024 5:14 AM DOBBY LOOM CH[employer] PEGGER us Patricia Bryant MD LAB BLOOD ORDERABLES Final Res ult [facility] Department [place] [address] * (ABNORMAL) Comprehensive metabolic panel (06/21/2024 5:03 AM DOBBY LOOM CH[employer] PEGGER) Pathologist [facility] Sodium 145 135 - 145 mmol/L Potassium, pl 3.4 3.3 - 4.9 mmol/L [facility] Chloride 112(H) 97 - 110 mmol/L [facility] CO2 27 22 - 32 mmol/L [facility] Anion gap 6 2 - 15 mmol/L [facility] BUN 9 6 - 25 mg/dL [facility] Creatinine 0.57(L) 0.80 - 1.30 mg/dL [facility] Glucose 106 70 - 199 mg/dL [facility] Comment: Interpretive Data Fasting glucose >/= [...] 2022. Calcium 8.6 8.5 - 10.3 mg/dL [facility] Bilirubin, total 0.2 0.1 - 1.2 mg/dL [facility] Protein, pl 5.6(L) 6.5 - 8.5 g/dL [facility] Albumin 2.7(L) 3.5 - 5.0 g/dL [facility] Alk phos 61 40 - 130 Units/L [facility] ALT 15 7 - 55 Units/L [facility] AST 25 10 - 50 Units/L [facility] Blood 06/21/2024 5:03 AM DOBBY [employer] CH[employer] PEGGER 06/21/2024 5:14 AM DOBB[employer]GGER Patricia Bryant MD LAB BLOOD ORDERABLES Final Res ult Performing Organization Address [facility] Co de Phone Number [facility] Department [place] [address] * (ABNORMAL) MSSA/MRSA (Staphylococcus aureus) Culture Nasal (06/20/2024 10:30 PM DOBBY LOOM CH[employer] PEGGER) Report Final Report: Methicillin-resist ant Staphylococcus aureus Methicillin-resist ant Staphylococcus aureus #2 (.) Organism METHICILLIN-RESIST ANT STAPHYLOCOCCUS AUREUS [facility] Organism METHICILLIN-RESIST ANT STAPHYLOCOCCUS AUREUS [facility] Nasal 06/20/2024 10:3 0 PM DOBBY [employer] CH[employer] PEGGER 06/20/2024 10:43 PM DOBBY LO[employer] CH[employer] PEGGER Narrative [facility] - 06/23/2024 10:45 AM DOBBY LO[employer] CH[employer] PEGGER Testing performed by [facility] ([phone]). Patricia Bryant MD LAB MICROBIOLOGY - GENERAL ORD ERABLES Final Result Performing Organization Address [facility] de Phone Number [facility] Department [place] [address] * XR Abdomen Ap 1 Vw (06/20/2024 10:29 AM DOBBY LOOM CH[employer] PEGGER) Anatomical Region Laterality Modality Body, Abdomen N/A Computed Radiogr aphy 06/20/2024 10:5 3 AM DOBBY LOOM CH[employer] PEGGER Impressions 06/20/2024 11:51 AM DOBBY LOOM CHAIN PEGGER Gastrostomy tube. Colonic distention is improved. No radiographic evidence of obstruction. Dictated by: Hunter Hernandez M.D. ([place]) The radiology attending physician has personally reviewed this study, and had reviewed and/or edited this written report and agrees with it. Electronically signed by: Byron Moya M.D. Narrative 06/20/2024 11:51 AM DOBBY LOOM CHAIN PEGGER EXAMINATION: Abdomen, one view. HISTORY: Abdominal distention. [...] and culture Urine, bladder (06/19/2024 9:34 PM DOBBY LOOM CHAIN PEGGER) Color, ur Straw Yellow Clarity, ur Clear Clear [facility] Specific gravity, ur 1.021 1.003 - 1.030 [facility] pH, urine 7.0 [facility] Comment: Interpretive Data U rine pH is affected by diet, medications, systemic acid-base disturbances, and renal tubular function. pH may affect urinary stone formation. For example, urine pH below 6.0 may help reduce the tendency for calcium phosphate stones and pH greater than 6.0 may reduce the tendency for uric acid stone formation. Source: [place] [employer]er Current Interpretive Data was last revised on 2017 Protein, ur ql 1+(A) Negative [facility] Glucose, ur ql Negative Negative [facility] Ketones, ur Negative Negative [facility] Bilirubin, ur Negative Negative [facility] Blood, ur Negative Negative [facility] Urobilinogen, ur <2.0 <2.0 mg/dL [facility] Nitrite, ur Negative Negative [facility] Leukocyte esterase, ur Negative Negative [facility] UA reflex comment Reflex to microscopic UA will be performed. [facility] Urine, bladder 06/19/2024 9: 34 PM DOBBY [employer] CH[employer] PEGGER 06/19/2024 10:05 PM DOBBY LO[employer] CH[employer] PEGGER Patricia Bryant MD LAB MICROBIOLOGY - GENERAL ORD ERABLES Final Result Performing Organization Address [facility] Co de Phone Number [facility] [place] [address] * Urinalysis, microscopic only (06/19/2024 9:34 PM DOBBY LO[employer] CH[employer] PEGGER) Pathologist [facility] WBC, ur 0-5 0 - 5 /HPF RBC, ur 0-2 0 - 2 /HPF [facility] Epithelial cells, squamous, ur 1-5 0 - 5 /HPF [facility] Culture Reflex Comment Reflex conditions for urine culture (WBC >10) not met. [facility] Urine, bladder 06/19/2024 9: 34 PM DOBBY LO[employer] CH[employer] PEGGER 06/19/2024 10:05 PM [employer]BBY [employer] CH[employer] PEGGER Patricia Bryant MD LAB URINE ORDERABLES Final Res ult Performing Organization Address [facility] de Phone Number [facility] [place] [address] * (ABNORMAL) Differential, auto (06/19/2024 9:28 PM DOBBY LO[employer] CH[employer] PEGGER) Neutrophil abs 6.0 1.5 - 6.5 K/cumm Imm gran abs 0.0 0.0 - 0.1 K/cumm [facility] Lymphocyte abs 0.7(L) 0.8 - 3.3 K/cumm [facility] Monocyte abs 0.2 0.2 - 0.8 K/cumm [facility] Eosinophil abs 0.2 0.0 - 0.5 K/cumm [facility] Basophil abs 0.0 0.0 - 0.1 K/cumm [facility] Neutrophil pct 84.1 % [facility] Comment: Interpretive Data Percent cell count reference ranges are not reported, since discordance with absolute values may lead to misinterpretation of CBC data. Current Interpretive Data was last revised on 2017. Imm gran pct 0.4 % [facility] Comment: Interpretive Data Percent cell count reference ranges are not reported, since discordance with absolute values may lead to misinterpretation of CBC data. Current Interpretive Data was last revised on 2017. Lymphocyte pct 10.1 % [facility] Comment: Interpretive Data Percent cell count reference ranges are not reported, since discordance with absolute values may lead to misinterpretation of CBC data. Current Interpretive Data was last revised on 2017. Monocyte pct 2.9 % [facility] Comment: Interpretive Data Percent cell count reference ranges are not reported, since discordance with absolute values may lead to misinterpretation of CBC data. Current Interpretive Data was last revised on 2017. Eosinophil pct 2.4 % [facility] Comment: Interpretive Data Percent cell count reference ranges are not reported, since discordance with absolute values may lead to misinterpretation of CBC data. Current Interpretive Data was last revised on 2017. Basophil pct 0.1 % [facility] Comment: Interpretive Data Percent cell count reference ranges are not reported, since discordance with absolute values may lead to misinterpretation of CBC data. Current Interpretive Data was last revised on 2017. Blood 06/19/2024 9:28 PM [employer]BBY [employer] CH[employer] PEGGER 06/19/2024 10:38 PM DOBBY LO[employer] CH[employer] PEGGER us Patricia Bryant MD LAB BLOOD ORDERABLES Final Res ult [facility] Department [place] [address] * Lacosamide level (06/19/2024 9:28 PM DOBBY LO[employer] CH[employer] PEGGER) Lacosamide 9.6 1.0 - 10.0 mcg/mL [facility] Comment: ADDITIONAL INFORMATION This test was developed and its performance characteristics determined by [facility] in a manner consistent with CLIA requirements. This test has not been cleared or approved by the U.S. Food and Drug Administration. Test Performed by: [facility] [address] [place] [address] [employer] Sawyer: Marianela Odonnell Ph.D.; CLIA# [id number] Blood 06/19/2024 9:28 PM [employer]Y [employer] CH[employer] PEGGER 06/19/2024 11:01 PM [employer]Y [employer] CH[employer] PEGGER Narrative [facility] - 06/22/2024 10:25 AM DOBBY LO[employer] CH[employer] PEGGER Please get level before lacosamide dose is given us Patricia Bryant MD LAB BLOOD ORDERABLES Final Res ult [facility] One [facility] Department [place] [address] [facility] * (ABNORMAL) CBC with auto differential (06/19/2024 9:28 PM DOBBY LOOM CH[employer] PEGGER) WBC 7.1 3.8 - 9.9 K/cumm Hgb 12.5(L) 13.0 - 17.5 g/dL [facility] Hct 37.0(L) 38.9 - 50.3 % [facility] Plt 152 150 - 400 K/cumm [facility] MPV 12.6(H) 9.1 - 12.3 fL [facility] RBC 3.90(L) 4.30 - 5.80 M/cumm [facility] MCV 94.9 81.3 - 96.4 fL [facility] MCH 32.1 27.1 - 33.3 pg [facility] MCHC 33.8 32.3 - 35.7 g/dL [facility] RDW CV 13.4 11.1 - 14.9 % [facility] RDW SD 46.8 35.7 - 48.1 fL [facility] NRBC abs 0.00 0.00 - 0.01 K/cumm [facility] Blood 06/19/2024 9:28 PM [employer]BBY [employer] CH[employer] PEGGER 06/19/2024 10:38 PM [employer] CH[employer] PEGGER Patricia Bryant MD LAB BLOOD ORDERABLES Final Res ult Performing Organization Address City/[facility] Of [place] Co de Phone Number [facility] Department [place] [address] * Valproic acid level, total (06/19/2024 9:28 PM DOBBY [employer] PEGGER) [facility] Valproic Acid 76.0 50.0 - 100.0 mcg/mL Comment: Interpretive Data Therapeutic or toxic effects of anticonvulsant drugs may occur at different concentrations in different patients and the correlation between dose and clinical effect must be evaluated individually. Current interpretative data was last revised on 13. Blood 06/19/2024 9:28 PM [employer] 06/19/2024 10:39 PM [employer] Narrative [facility] - 06/19/2024 11:40 PM [employer] Please get level before dose is given Patricia Bryant MD LAB BLOOD ORDERABLES Final Res ult Performing Organization Address [facility] [place] Co de Phone Number [facility] Department [place] [address] * Respiratory pathogen panel Nasopharyngeal (06/19/2024 9:10 PM DOBBY [employer]GGER) [facility] Influenza A RNA Not Detected Not Detected Influenza B RNA Not Detected Not Detected [facility] RSV RNA Not Detected Not Detected [facility] COVID-19 RNA Not Detected Not Detected [facility] Coronavirus 229E RNA Not Detected Not Detected [facility] Coronavirus HKU1 RNA Not Detected Not Detected [facility] Coronavirus NL63 RNA Not Detected Not Detected [facility] Coronavirus OC43 RNA Not Detected Not Detected [facility] Adenovirus DNA Not Detected Not Detected [facility] Metapneumovirus RNA Not Detected Not Detected [facility] Rhinovirus/Enterov irus RNA Not Detected Not Detected [facility] Parainfluenza 1 RNA Not Detected Not Detected [facility] Parainfluenza 2 RNA Not Detected Not Detected [facility] Parainfluenza 3 RNA Not Detected Not Detected [facility] Parainfluenza 4 RNA Not Detected Not Detected [facility] B. pertussis DNA Not Detected Not Detected [facility] B. parapertussis DNA Not Detected Not Detected [facility] C. pneumoniae DNA Not Detected Not Detected [facility] M. pneumoniae DNA Not Detected Not Detected [facility] Nasopharyngeal 06/19/2024 9: 10 PM [employer] 06/19/2024 10:06 PM [employer] Narrative [facility] - 06/19/2024 11:35 PM [employer] Is the Patient experiencing symptoms consistent with COVID?->Yes Surveillance testing for transplant patient?->No Interpretive Data [employer] Film[employer] Respiratory Panel (RP2.1) assay is a [...] assay has FDA clearance for testing of DIRECTOR OF DIRECT MARKETING swabs. The performance of additional specimen types has been assessed by the performing laboratory. The performance characteristics of this assay have been determined by [facility] Molecular Infectious Disease Laboratory. Current interpretive data was last revised on 22. Patricia Bryant MD LAB MICROBIOLOGY - GENERAL ORD ERABLES Final Result [facility] Department [place] [address] * (ABNORMAL) Aerobic culture and gram stain Tracheal aspirate Tracheal (06/19/2024 6:53 PM [employer]Y [employer]GGER) Direct Specimen Exam Stain: Abundant polymorphonuclear leukocytes seen. Few squamous epithelial cells seen. Moderate mixed bacterial domenico seen on Gram stain. Report Final Report: Greater than or equal to 100,000 colonies/ml of Staphylococcus aureus Methicillin resistant (MRSA) by penicillin binding protein 2a (PBP2a) testing. Plus growth of clinically insignificant bacterial domenico. (.) [facility] Organism STAPHYLOCOCCUS AUREUS [facility] Organism PLUS GROWTH OF CLINICALLY INSIGNIFICANT DOMENICO. [facility] Tracheal aspirate (Tracheal) 06/19/2024 6:53 PM [employer] 06/19/2024 8:18 PM [employer]ER Narrative [facility] - 06/27/2024 2:52 PM [employer] Testing performed by [facility] Microbiology Laboratory ([phone]) Specimens submitted from normally sterile body sites [...] ORD ERABLES Final Result [facility] Department [place] [address] * XR Chest 1 View (06/19/2024 6:47 PM DOBBY [employer]ER) Anatomical Region Laterality Modality Body, Chest N/A Digital Radiogra phy 06/20/2024 2:42 PM [employer]ER Impressions 06/20/2024 3:15 PM [employer] Comparison is made to 06/19/2024 at 3:32 [...] Herve Payne M.D. Narrative 06/20/2024 3:15 PM [employer] EXAMINATION: 1 view chest radiograph Procedure Note [...] pathogen panel Tracheal aspirate (06/19/2024 6:46 PM DOBBY [employer]GGER) [facility] Influenza A RNA Not Detected Not Detected Influenza B RNA Not Detected Not Detected [facility] RSV RNA Not Detected Not Detected [facility] COVID-19 RNA Not Detected Not Detected [facility] Coronavirus 229E RNA Not Detected Not Detected [facility] Coronavirus HKU1 RNA Not Detected Not Detected [facility] Coronavirus NL63 RNA Not Detected Not Detected [facility] Coronavirus OC43 RNA Not Detected Not Detected [facility] Adenovirus DNA Not Detected Not Detected [facility] Metapneumovirus RNA Not Detected Not Detected [facility] Rhinovirus/Enterov irus RNA Not Detected Not Detected [facility] Parainfluenza 1 RNA Not Detected Not Detected [facility] Parainfluenza 2 RNA Not Detected Not Detected [facility] Parainfluenza 3 RNA Not Detected Not Detected [facility] Parainfluenza 4 RNA Not Detected Not Detected [facility] B. pertussis DNA Not Detected Not Detected [facility] B. parapertussis DNA Not Detected Not Detected [facility] C. pneumoniae DNA Not Detected Not Detected [facility] M. pneumoniae DNA Not Detected Not Detected [facility] Tracheal aspirate 06/19/2024 6:46 PM [employer]ER 06/20/2024 7:55 AM [employer] Narrative [facility] - 06/20/2024 8:58 AM [employer] Is the Patient experiencing symptoms consistent with COVID?->Yes Surveillance testing for transplant patient?->No Interpretive Data [employer] Film[employer] Respiratory Panel (RP2.1) assay is a [...] assay has FDA clearance for testing of DIRECTOR [employer] MARKETING swabs. The performance of additional specimen types has been assessed by the performing laboratory. The performance characteristics of this assay have been determined by [facility] Molecular Infectious Disease Laboratory. Current interpretive data was last revised on 22. us Patricia Bryant MD LAB MICROBIOLOGY - GENERAL ORD ERABLES Final Result [facility] Department [place] [address] * XR Abdomen Ap 1 Vw (06/19/2024 4:09 PM [employer]) Anatomical Region Laterality Modality Body, Abdomen N/A Digital Radiogra phy 06/19/2024 4:35 PM [employer] Impressions 06/19/2024 5:03 PM [employer]ER Diffuse mild gaseous bowel distention, similar to the prior exam and could represent ileus. Partially imaged gastrostomy tube. Dictated by: Hunter Hernandez M.D. ([place]) The radiology attending physician has personally reviewed this study, and had reviewed and/or edited this written report and agrees with it. Electronically signed by: Lupillo Lugo M.D. Narrative 06/19/2024 5:03 PM [employer] EXAMINATION: Abdomen, one view. HISTORY: Abdominal pain [...] XR Chest 1 View (06/19/2024 4:08 PM [employer]) Anatomical Region Laterality Modality Body, Chest N/A Digital Radiogra phy 06/19/2024 4:21 PM [employer] Impressions 06/19/2024 4:21 PM [employer] The current study is compared with the [...] Elif Patel M.D. Narrative 06/19/2024 4:21 PM [employer]ER EXAMINATION: 1 view chest radiograph Procedure Note [...] Final Result * eGFR (06/19/2024 2:47 PM DO[employer]Y [employer]ER) eGFR >90 >=60 mL/min/1. 73 m2 Comment: [...] last reviewed 2021. Blood 06/19/2024 2:47 PM [employer]ER 06/19/2024 3:03 PM [employer] Patricia Bryant MD LAB BLOOD ORDERABLES Final Res ult [facility] Department [place] [address] * Differential, auto (06/19/2024 2:47 PM [employer]Y [employer]GGER) Neutrophil abs 5.5 1.5 - 6.5 K/cumm Imm gran abs 0.0 0.0 - 0.1 K/cumm [facility] Lymphocyte abs 0.9 0.8 - 3.3 K/cumm [facility] Monocyte abs 0.2 0.2 - 0.8 K/cumm [facility] Eosinophil abs 0.3 0.0 - 0.5 K/cumm [facility] Basophil abs 0.0 0.0 - 0.1 K/cumm [facility] Neutrophil pct 79.8 % [facility] Comment: Interpretive Data Percent cell count reference ranges are not reported, since discordance with absolute values may lead to misinterpretation of CBC data. Current Interpretive Data was last revised on 2017. Imm gran pct 0.4 % [facility] Comment: Interpretive Data Percent cell count reference ranges are not reported, since discordance with absolute values may lead to misinterpretation of CBC data. Current Interpretive Data was last revised on 2017. Lymphocyte pct 13.4 % [facility] Comment: Interpretive Data Percent cell count reference ranges are not reported, since discordance with absolute values may lead to misinterpretation of CBC data. Current Interpretive Data was last revised on 2017. Monocyte pct 2.5 % [facility] Comment: Interpretive Data Percent cell count reference ranges are not reported, since discordance with absolute values may lead to misinterpretation of CBC data. Current Interpretive Data was last revised on 2017. Eosinophil pct 3.8 % [facility] Comment: Interpretive Data Percent cell count reference ranges are not reported, since discordance with absolute values may lead to misinterpretation of CBC data. Current Interpretive Data was last revised on 2017. Basophil pct 0.1 % [facility] Comment: Interpretive Data Percent cell count reference ranges are not reported, since discordance with absolute values may lead to misinterpretation of CBC data. Current Interpretive Data was last revised on 2017. Blood 06/19/2024 2:47 PM [employer] 06/19/2024 3:04 PM [employer] us Patricia Bryant MD LAB BLOOD ORDERABLES Final Res ult [facility] Department [place] [address] * (ABNORMAL) CBC with auto differential (06/19/2024 2:47 PM DOBBY [employer]GGER) [facility] WBC 6.9 3.8 - 9.9 K/cumm Hgb 14.2 13.0 - 17.5 g/dL [facility] Hct 42.4 38.9 - 50.3 % [facility] Plt 135(L) 150 - 400 K/cumm [facility] MPV 12.6(H) 9.1 - 12.3 fL [facility] RBC 4.47 4.30 - 5.80 M/cumm [facility] MCV 94.9 81.3 - 96.4 fL [facility] MCH 31.8 27.1 - 33.3 pg [facility] MCHC 33.5 32.3 - 35.7 g/dL [facility] RDW CV 13.2 11.1 - 14.9 % [facility] RDW SD 46.5 35.7 - 48.1 fL [facility] NRBC abs 0.00 0.00 - 0.01 K/cumm [facility] Blood 06/19/2024 2:47 PM [employer]ER 06/19/2024 3:04 PM [employer] Patricia Bryant MD LAB BLOOD ORDERABLES Final Res ult Performing Organization Address City/[facility] [place]/[facility] Co de Phone Number [facility] [place] [address] * (ABNORMAL) Phosphorus (06/19/2024 2:47 PM DOBBY [employer]GGER) [facility] Phosphorus, pl 2.2(L) 2.3 - 4.5 mg/dL Blood 06/19/2024 2:47 PM [employer]ER 06/19/2024 3:03 PM [employer] Patricia Bryant MD LAB BLOOD ORDERABLES Final Res ult Performing Organization Address [facility] [place]/ZIP Co de Phone Number [facility] [place] [address] * Magnesium (06/19/2024 2:47 PM DOBBY [employer]GGER) Magnesium 2.0 1.4 - 2.5 mg/dL Blood 06/19/2024 2:47 PM [employer] 06/19/2024 3:03 PM DOBB[employer] PEGGER us Patricia Bryant MD LAB BLOOD ORDERABLES Final Res ult [facility] One [facility] Department [place] [address] * (ABNORMAL) Comprehensive metabolic panel (06/19/2024 2:47 PM DOBBY [employer] CH[employer] PEGGER) Pathologist [facility] Sodium 144 135 - 145 mmol/L Potassium, pl 3.9 3.3 - 4.9 mmol/L [facility] Comment:Hemolyzed; Potassium value may be falsely elevated by as much as 0.3-0.5 mmol/L. Suggest redraw and reanalysis. Chloride 105 97 - 110 mmol/L [facility] CO2 29 22 - 32 mmol/L [facility] Anion gap 10 2 - 15 mmol/L [facility] BUN 7 6 - 25 mg/dL [facility] Creatinine 0.62(L) 0.80 - 1.30 mg/dL [facility] Glucose 113 70 - 199 mg/dL [facility] Comment: Interpretive Data Fasting glucose >/= [...] 2022. Calcium 9.5 8.5 - 10.3 mg/dL [facility] Bilirubin, total 0.2 0.1 - 1.2 mg/dL [facility] Protein, pl 7.2 6.5 - 8.5 g/dL [facility] Albumin 3.7 3.5 - 5.0 g/dL [facility] Alk phos 91 40 - 130 Units/L [facility] ALT 13 7 - 55 Units/L [facility] AST 28 10 - 50 Units/L [facility] Comment:Hemolyzed; result ma y be falsely elevated Blood 06/19/2024 2:47 PM [employer]ER 06/19/2024 3:03 PM [employer] Patricia Bryant MD LAB BLOOD ORDERABLES Final Res ult Performing Organization Address [facility] [place]/[facility] Co de Phone Number [facility] Department [place] [address] * POCT glucose (06/19/2024 2:25 PM DOBBY [employer]ER) Glucose, POC 125 70 - 199 mg/dL Blood 06/19/2024 2:25 PM [employer] 06/19/2024 2:25 PM [employer] Patricia Bryant MD LAB POCT ORDERABLES - DEVICE F inal Result Performing Organization Address [facility] [place]/[facility] Phone Number [facility] Department [place] [address] * XR Abdomen Ap 1 Vw (06/16/2024 6:16 PM [employer]) Anatomical Region Laterality Modality Body, Abdomen N/A Computed Radiogr aphy 06/16/2024 6:56 PM [employer] Impressions 06/16/2024 6:56 PM [employer] Gastrostomy tube is present. Aerated bowel seen throughout the abdomen. The gaseous distention is improved from the prior examination. Distal rectal air is not definitively visualized. No pneumoperitoneum. Electronically signed by: Sekou Wolf M.D. Narrative 06/16/2024 6:56 PM [employer] EXAMINATION: Abdomen, one view. HISTORY: Abdominal distension. [...] Res ult * eGFR (06/16/2024 12:42 PM [employer]ER) eGFR >90 >=60 mL/min/1. 73 m2 Comment: [...] reviewed 2021. Blood 06/16/2024 12:4 2 PM [employer] 06/16/2024 12:49 PM [employer] Misael Felix MD LAB BLOOD ORDERABLES Final Result [facility] Department of Laboratories [place], [place] [id number] * Differential, auto (06/16/2024 12:42 PM [employer]) Neutrophil abs 2.5 1.5 - 6.5 K/cumm Imm gran abs 0.0 0.0 - 0.1 K/cumm [facility] Lymphocyte abs 2.4 0.8 - 3.3 K/cumm [facility] Monocyte abs 0.4 0.2 - 0.8 K/cumm [facility] Eosinophil abs 0.4 0.0 - 0.5 K/cumm [facility] Basophil abs 0.0 0.0 - 0.1 K/cumm [facility] Neutrophil pct 42.8 % [facility] Comment: Interpretive Data Percent cell count reference ranges are not reported, since discordance with absolute values may lead to misinterpretation of CBC data. Current Interpretive Data was last revised on 2017. Imm gran pct 0.2 % [facility] Comment: Interpretive Data Percent cell count reference ranges are not reported, since discordance with absolute values may lead to misinterpretation of CBC data. Current Interpretive Data was last revised on 2017. Lymphocyte pct 42.2 % [facility] Comment: Interpretive Data Percent cell count reference ranges are not reported, since discordance with absolute values may lead to misinterpretation of CBC data. Current Interpretive Data was last revised on 2017. Monocyte pct 6.7 % [facility] Comment: Interpretive Data Percent cell count reference ranges are not reported, since discordance with absolute values may lead to misinterpretation of CBC data. Current Interpretive Data was last revised on 2017. Eosinophil pct 7.7 % [facility] Comment: Interpretive Data Percent cell count reference ranges are not reported, since discordance with absolute values may lead to misinterpretation of CBC data. Current Interpretive Data was last revised on 2017. Basophil pct 0.4 % [facility] Comment: Interpretive Data Percent cell count reference ranges are not reported, since discordance with absolute values may lead to misinterpretation of CBC data. Current Interpretive Data was last revised on 2017. Blood 06/16/2024 12:4 2 PM [employer] 06/16/2024 12:49 PM [employer] us Misael Felix MD LAB BLOOD ORDERABLES Final Result [facility] Department [place] [address] * (ABNORMAL) CBC with auto differential (06/16/2024 12:42 PM DOBB[employer] PEGGER) Pathologist [facility] WBC 5.7 3.8 - 9.9 K/cumm Hgb 12.2(L) 13.0 - 17.5 g/dL [facility] Hct 36.6(L) 38.9 - 50.3 % [facility] Plt 156 150 - 400 K/cumm [facility] MPV 12.6(H) 9.1 - 12.3 fL [facility] RBC 3.85(L) 4.30 - 5.80 M/cumm [facility] MCV 95.1 81.3 - 96.4 fL [facility] MCH 31.7 27.1 - 33.3 pg [facility] MCHC 33.3 32.3 - 35.7 g/dL [facility] RDW CV 13.0 11.1 - 14.9 % [facility] RDW SD 45.1 35.7 - 48.1 fL [facility] NRBC abs 0.00 0.00 - 0.01 K/cumm [facility] Blood 06/16/2024 12:4 2 PM [employer] 06/16/2024 12:49 PM [employer] Misael Felix MD LAB BLOOD ORDERABLES Final Result Performing Organization Address City/[facility] [place]/ZIP Co de Phone Number [facility] Department [place] [address] * Phosphorus (06/16/2024 12:42 PM DO[employer]GGER) Pathologist [facility] Phosphorus, pl 2.5 2.3 - 4.5 mg/dL Blood 06/16/2024 12:4 2 PM [employer] 06/16/2024 12:49 PM [employer] Misael Felix MD LAB BLOOD ORDERABLES Final Result [facility] Department [place] [address] * Magnesium (06/16/2024 12:42 PM DOBBY [employer] PEGGER) Pathologist [facility] Magnesium 2.0 1.4 - 2.5 mg/dL Blood 06/16/2024 12:4 2 PM [employer] 06/16/2024 12:49 PM [employer] Misael Felix MD LAB BLOOD ORDERABLES Final Result [facility] Department [place] [address] * (ABNORMAL) Comprehensive metabolic panel (06/16/2024 12:42 PM DO[employer] PEGGER) [facility] Sodium 143 135 - 145 mmol/L Potassium, pl 3.5 3.3 - 4.9 mmol/L [facility] Chloride 111(H) 97 - 110 mmol/L [facility] CO2 26 22 - 32 mmol/L [facility] Anion gap 6 2 - 15 mmol/L [facility] BUN 6 6 - 25 mg/dL [facility] Creatinine 0.56(L) 0.80 - 1.30 mg/dL [facility] Glucose 94 70 - 199 mg/dL [facility] Comment: Interpretive Data Fasting glucose >/= [...] 2022. Calcium 8.9 8.5 - 10.3 mg/dL [facility] Bilirubin, total 0.4 0.1 - 1.2 mg/dL [facility] Protein, pl 6.3(L) 6.5 - 8.5 g/dL [facility] Albumin 3.3(L) 3.5 - 5.0 g/dL [facility] Alk phos 79 40 - 130 Units/L [facility] ALT 10 7 - 55 Units/L [facility] AST 18 10 - 50 Units/L [facility] Blood 06/16/2024 12:4 2 PM [employer] 06/16/2024 12:49 PM [employer] us Misael Felix MD LAB BLOOD ORDERABLES Final Result [facility] Department [place] [address] * XR Abdomen Ap 1 Vw (06/15/2024 1:57 AM [employer]) Anatomical Region Laterality Modality Body, Abdomen N/A Computed Radiogr aphy 06/15/2024 3:15 PM [employer] Impressions 06/15/2024 4:44 PM [employer] There is a gastrostomy tube with tip [...] Sean Angel M.D. Narrative 06/15/2024 4:44 PM [employer] EXAMINATION: Abdomen, one view. HISTORY: Abdominal distension. [...] Res ult * eGFR (06/13/2024 4:59 AM [employer]) eGFR >90 >=60 mL/min/1. 73 m2 Comment: [...] last reviewed 2021. Blood 06/13/2024 4:59 AM [employer] 06/13/2024 5:38 AM [employer] Ryan Jauregui MD LAB BLOOD ORDERABLES Final Resul t [facility] Department [place] [address] * (ABNORMAL) Differential, auto (06/13/2024 4:59 AM [employer]) Neutrophil abs 10.3(H) 1.5 - 6.5 K/cumm Imm gran abs 0.1 0.0 - 0.1 K/cumm [facility] Lymphocyte abs 3.0 0.8 - 3.3 K/cumm [facility] Monocyte abs 0.9(H) 0.2 - 0.8 K/cumm [facility] Eosinophil abs 0.2 0.0 - 0.5 K/cumm [facility] Basophil abs 0.0 0.0 - 0.1 K/cumm [facility] Neutrophil pct 70.9 % [facility] Comment: Interpretive Data Percent cell count reference ranges are not reported, since discordance with absolute values may lead to misinterpretation of CBC data. Current Interpretive Data was last revised on 2017. Imm gran pct 0.4 % [facility] Comment: Interpretive Data Percent cell count reference ranges are not reported, since discordance with absolute values may lead to misinterpretation of CBC data. Current Interpretive Data was last revised on 2017. Lymphocyte pct 20.7 % [facility] Comment: Interpretive Data Percent cell count reference ranges are not reported, since discordance with absolute values may lead to misinterpretation of CBC data. Current Interpretive Data was last revised on 2017. Monocyte pct 6.5 % [facility] Comment: Interpretive Data Percent cell count reference ranges are not reported, since discordance with absolute values may lead to misinterpretation of CBC data. Current Interpretive Data was last revised on 2017. Eosinophil pct 1.4 % [facility] Comment: Interpretive Data Percent cell count reference ranges are not reported, since discordance with absolute values may lead to misinterpretation of CBC data. Current Interpretive Data was last revised on 2017. Basophil pct 0.1 % [facility] Comment: Interpretive Data Percent cell count reference ranges are not reported, since discordance with absolute values may lead to misinterpretation of CBC data. Current Interpretive Data was last revised on 2017. Blood 06/13/2024 4:59 AM [employer] 06/13/2024 5:38 AM [employer] us Ryan Jauregui MD LAB BLOOD ORDERABLES Final Resul t [facility] One [facility] Department [place] [address] * Lacosamide level (06/13/2024 4:59 AM [employer]BB[employer]GGER) [facility] Lacosamide 1.4 1.0 - 10.0 mcg/mL [facility] Comment: ADDITIONAL INFORMATION This test was developed and its performance characteristics determined by [facility] in a manner consistent with CLIA requirements. This test has not been cleared or approved by the U.S. Food and Drug Administration. Test Performed by: [facility] - [facility] [address] [place] [address] Cant Gang Sawyer: Marianela Odonnell Ph.D.; CLIA# [id number] Blood 06/13/2024 4:59 AM [employer] 06/13/2024 5:38 AM [employer] Ryan Jauregui MD LAB BLOOD ORDERABLES Final Resul t [facility] One [facility] Department [place] [address] [facility] * (ABNORMAL) CBC with auto differential (06/13/2024 4:59 AM [employer]GGER) [facility] WBC 14.6(H) 3.8 - 9.9 K/cumm Hgb 13.2 13.0 - 17.5 g/dL [facility] Hct 39.7 38.9 - 50.3 % [facility] Plt 155 150 - 400 K/cumm [facility] MPV 12.4(H) 9.1 - 12.3 fL [facility] RBC 4.03(L) 4.30 - 5.80 M/cumm [facility] MCV 98.5(H) 81.3 - 96.4 fL [facility] MCH 32.8 27.1 - 33.3 pg [facility] MCHC 33.2 32.3 - 35.7 g/dL [facility] RDW CV 13.6 11.1 - 14.9 % [facility] RDW SD 50.2(H) 35.7 - 48.1 fL [facility] NRBC abs 0.00 0.00 - 0.01 K/cumm [facility] Blood 06/13/2024 4:59 AM [employer] 06/13/2024 5:38 AM [employer] Ryan Jauregui MD LAB BLOOD ORDERABLES Final Resul t Performing Organization Address [facility]/ZIP Co de Phone Number [facility] One [facility] Department [place] [address] * Blood culture Blood (06/13/2024 4:59 AM [employer]ER) Report Final Report: No growth Blood 06/13/2024 4:59 AM [employer] 06/13/2024 6:21 AM [employer] Narrative [facility] - 06/17/2024 7:00 AM [employer] From a different site than #1. Collection->Peripheral [...] performance characteristics have been verified by the [facility]. For questions about this culture, contact the Microbiology Laboratory at [phone]. Interpretive data was last revised on 24. Ryan Jauregui MD LAB MICROBIOLOGY - GENERAL ORDER NICHOLE Final Result Performing Organization Address [facility]/ZIP Co de Phone Number [facility] [place] [address] * Phosphorus (06/13/2024 4:59 AM [employer]) Phosphorus, pl 3.0 2.3 - 4.5 mg/dL Blood 06/13/2024 4:59 AM [employer] 06/13/2024 5:38 AM [employer] Ryan Jauregui MD LAB BLOOD ORDERABLES Final Resul t Performing Organization Address [facility] Co de Phone Number [facility] [place] [address] * Magnesium (06/13/2024 4:59 AM [employer]) Magnesium 1.9 1.4 - 2.5 mg/dL Blood 06/13/2024 4:59 AM [employer] 06/13/2024 5:38 AM [employer] Ryan Jauregui MD LAB BLOOD ORDERABLES Final Resul t Performing Organization Address [facility] de Phone Number [facility] [place] [address] * (ABNORMAL) Valproic acid level, total (06/13/2024 4:59 AM [employer]ER) Valproic Acid 48.0(L) 50.0 - 100.0 mcg/mL Comment: Interpretive Data Therapeutic or toxic effects of anticonvulsant drugs may occur at different concentrations in different patients and the correlation between dose and clinical effect must be evaluated individually. Current interpretative data was last revised on 13. Blood 06/13/2024 4:59 AM [employer] 06/13/2024 5:38 AM [employer] us Ryan Jauregui MD LAB BLOOD ORDERABLES Final Resul t Performing Organization Address [facility] Co de Phone Number [facility] Department [place] [address] * (ABNORMAL) Comprehensive metabolic panel (06/13/2024 4:59 AM [employer]ER) Sodium 141 135 - 145 mmol/L Potassium, pl 3.9 3.3 - 4.9 mmol/L [facility] Chloride 106 97 - 110 mmol/L [facility] CO2 28 22 - 32 mmol/L [facility] Anion gap 7 2 - 15 mmol/L [facility] BUN 8 6 - 25 mg/dL [facility] Creatinine 0.54(L) 0.80 - 1.30 mg/dL [facility] Glucose 103 70 - 199 mg/dL [facility] Comment: Interpretive Data Fasting glucose >/= [...] 2022. Calcium 9.5 8.5 - 10.3 mg/dL [facility] Bilirubin, total 0.5 0.1 - 1.2 mg/dL [facility] Protein, pl 7.1 6.5 - 8.5 g/dL [facility] Albumin 3.7 3.5 - 5.0 g/dL [facility] Alk phos 96 40 - 130 Units/L [facility] ALT 17 7 - 55 Units/L [facility] AST 22 10 - 50 Units/L [facility] Blood 06/13/2024 4:59 AM [employer] 06/13/2024 5:38 AM [employer] us Ryan Jauregui MD LAB BLOOD ORDERABLES Final Resul t [facility] One [facility] Department [place] [address] * TSH (06/12/2024 3:51 PM [employer]ER) Pathologist [facility] Thyroid Stimulating Hormone 2.58 0.30 - 4.20 mcIUnit/mL Blood 06/12/2024 3:51 PM [employer] 06/12/2024 5:05 PM [employer] us Ryan Jauregui MD LAB BLOOD ORDERABLES Final Resul t [facility] One [facility] Department [place] [address] * (ABNORMAL) Differential, auto (06/12/2024 3:30 PM [employer]) Pathologist [facility] Neutrophil abs 9.5(H) 1.5 - 6.5 K/cumm Imm gran abs 0.0 0.0 - 0.1 K/cumm [facility] Lymphocyte abs 2.3 0.8 - 3.3 K/cumm [facility] Monocyte abs 1.1(H) 0.2 - 0.8 K/cumm [facility] Eosinophil abs 0.2 0.0 - 0.5 K/cumm [facility] Basophil abs 0.0 0.0 - 0.1 K/cumm [facility] Neutrophil pct 72.4 % [facility] Comment: Interpretive Data Percent cell count reference ranges are not reported, since discordance with absolute values may lead to misinterpretation of CBC data. Current Interpretive Data was last revised on 2017. Imm gran pct 0.2 % [facility] Comment: Interpretive Data Percent cell count reference ranges are not reported, since discordance with absolute values may lead to misinterpretation of CBC data. Current Interpretive Data was last revised on 2017. Lymphocyte pct 17.4 % [facility] Comment: Interpretive Data Percent cell count reference ranges are not reported, since discordance with absolute values may lead to misinterpretation of CBC data. Current Interpretive Data was last revised on 2017. Monocyte pct 8.3 % [facility] Comment: Interpretive Data Percent cell count reference ranges are not reported, since discordance with absolute values may lead to misinterpretation of CBC data. Current Interpretive Data was last revised on 2017. Eosinophil pct 1.5 % [facility] Comment: Interpretive Data Percent cell count reference ranges are not reported, since discordance with absolute values may lead to misinterpretation of CBC data. Current Interpretive Data was last revised on 2017. Basophil pct 0.2 % [facility] Comment: Interpretive Data Percent cell count reference ranges are not reported, since discordance with absolute values may lead to misinterpretation of CBC data. Current Interpretive Data was last revised on 2017. Blood 06/12/2024 3:30 PM [employer] 06/12/2024 5:10 PM [employer] us Ryan Jauregui MD LAB BLOOD ORDERABLES Final Resul t [facility] One [facility] Department [place] [address] * (ABNORMAL) CBC with auto differential (06/12/2024 3:30 PM [employer]ER) WBC 13.3(H) 3.8 - 9.9 K/cumm Hgb 13.7 13.0 - 17.5 g/dL [facility] Hct 41.5 38.9 - 50.3 % [facility] Plt 162 150 - 400 K/cumm [facility] MPV 13.6(H) 9.1 - 12.3 fL [facility] RBC 4.27(L) 4.30 - 5.80 M/cumm [facility] MCV 97.2(H) 81.3 - 96.4 fL [facility] MCH 32.1 27.1 - 33.3 pg [facility] MCHC 33.0 32.3 - 35.7 g/dL [facility] RDW CV 13.7 11.1 - 14.9 % [facility] RDW SD 48.8(H) 35.7 - 48.1 fL [facility] NRBC abs 0.00 0.00 - 0.01 K/cumm [facility] Blood 06/12/2024 3:30 PM [employer] 06/12/2024 5:10 PM [employer] Ryan Jauregui MD LAB BLOOD ORDERABLES Final Resul t Performing Organization Address [facility] de Phone Number [facility] [place] [address] * Hemoglobin A1c (06/12/2024 3:30 PM [employer]ER) Hgb A1C 4.9 4.0 - 5.6 % Estimated Average Glucose 94 mg/dL [facility] Comment: The ADA recommends reporting an estimated Average Glucose (eAG) with all Hemoglobin A1c results using the equation derived from a study of 507 normal and diabetic adults. Minority populations were underrepresented and children were not included. (Diabetes Care 2020; 43(S1): S66-S76). The eAG is not equivalent to a fasting glucose. Blood 06/12/2024 3:30 PM [employer] 06/12/2024 5:10 PM [employer] Ryan Jauregui MD LAB BLOOD ORDERABLES Final Resul t Performing Organization Address [facility] de Phone Number [facility] [place] [address] * Troponin I high-sensitivity 4-hour (06/12/2024 3:27 PM [employer]GGER) Pathologist [facility] Trop I hs 10 <=35 ng/L Comment: Interpretive Data For further hscTnI resources including the diagnostic algorithm and an aid in interpretation, copy and paste this link: https://bjhlab.testcatalog.org/show/hsTrop-[email or web address] Current Interpretive Data last revised 2019. Trop I hs delta 1 ng/L [facility] Trop I hs interp Insignificant [facility] Blood 06/12/2024 3:27 PM [employer]ER 06/12/2024 5:06 PM [employer] Shakila Jung MD LAB BLOOD ORDERABL ES Final Result Performing Organization Address [facility] Co de Phone Number [facility] One [facility] Department [place] [address] * XR Chest 1 Vw Portable (06/12/2024 2:47 PM [employer]GGER) Anatomical Region Laterality Modality Body, Chest N/A Computed Radiogr aphy 06/12/2024 2:51 PM [employer] Impressions 06/12/2024 2:51 PM [employer]ER Comparison to 10/07/2021. Tracheostomy device in place. Small lung volumes with bibasilar atelectasis. No pneumothorax or focal consolidation. Unchanged cardiomediastinal silhouette, accounting for differences volumes. Small left pleural effusion. No right pleural effusion. Electronically signed by: Raul Whitfield M.D. Narrative 06/12/2024 2:51 PM [employer] EXAMINATION: 1 view chest radiograph Procedure Note [...] Urine, in and out catheter (06/12/2024 2:38PM [employer]ER) Color, ur Straw Yellow Clarity, ur Clear Clear [facility] Specific gravity, ur >1.042(H) 1.003 - 1.030 [facility] pH, urine 8.5 [facility] Comment: Interpretive Data U rine pH is affected by diet, medications, systemic acid-base disturbances, and renal tubular function. pH may affect urinary stone formation. For example, urine pH below 6.0 may help reduce the tendency for calcium phosphate stones and pH greater than 6.0 may reduce the tendency for uric acid stone formation. Source: [facility] Current Interpretive Data was last revised on 2017 Protein, ur ql Trace Negative [facility] Glucose, ur ql Negative Negative [facility] Ketones, ur Negative Negative [facility] Bilirubin, ur Negative Negative [facility] Blood, ur Negative Negative [facility] Urobilinogen, ur 2.0(A) <2.0 mg/dL [facility] Nitrite, ur Negative Negative [facility] Leukocyte esterase, ur Negative Negative [facility] UA reflex comment Reflex conditions for microscopic UA and culture not met. [facility] Urine, in and out catheter 06/12/2024 2:38 PM [employer] 06/12/2024 3:47 PM [employer] us Shakila Jung MD LAB MICROBIOLOGY - GENERAL ORDERABLES Final Result [facility] One [facility] Department [place] [address] * (ABNORMAL) Differential, auto (06/12/2024 2:23 PM [employer]) Neutrophil abs 9.9(H) 1.5 - 6.5 K/cumm Imm gran abs 0.1 0.0 - 0.1 K/cumm [facility] Lymphocyte abs 2.5 0.8 - 3.3 K/cumm [facility] Monocyte abs 1.0(H) 0.2 - 0.8 K/cumm [facility] Eosinophil abs 0.2 0.0 - 0.5 K/cumm [facility] Basophil abs 0.0 0.0 - 0.1 K/cumm [facility] Neutrophil pct 72.4 % [facility] Comment: Interpretive Data Percent cell count reference ranges are not reported, since discordance with absolute values may lead to misinterpretation of CBC data. Current Interpretive Data was last revised on 2017. Imm gran pct 0.4 % [facility] Comment: Interpretive Data Percent cell count reference ranges are not reported, since discordance with absolute values may lead to misinterpretation of CBC data. Current Interpretive Data was last revised on 2017. Lymphocyte pct 18.4 % [facility] Comment: Interpretive Data Percent cell count reference ranges are not reported, since discordance with absolute values may lead to misinterpretation of CBC data. Current Interpretive Data was last revised on 2017. Monocyte pct 7.2 % [facility] Comment: Interpretive Data Percent cell count reference ranges are not reported, since discordance with absolute values may lead to misinterpretation of CBC data. Current Interpretive Data was last revised on 2017. Eosinophil pct 1.5 % [facility] Comment: Interpretive Data Percent cell count reference ranges are not reported, since discordance with absolute values may lead to misinterpretation of CBC data. Current Interpretive Data was last revised on 2017. Basophil pct 0.1 % [facility] Comment: Interpretive Data Percent cell count reference ranges are not reported, since discordance with absolute values may lead to misinterpretation of CBC data. Current Interpretive Data was last revised on 2017. Blood 06/12/2024 2:23 PM [employer] 06/12/2024 4:04 PM [employer] us Shakila Jung MD LAB BLOOD ORDERABL ES Final Result [facility] One [facility] Department [place] [address] * (ABNORMAL) CBC with auto differential (06/12/2024 2:23 PM [employer]) WBC 13.7(H) 3.8 - 9.9 K/cumm Hgb 14.1 13.0 - 17.5 g/dL [facility] Hct 42.0 38.9 - 50.3 % [facility] Plt 171 150 - 400 K/cumm [facility] MPV 13.2(H) 9.1 - 12.3 fL [facility] RBC 4.36 4.30 - 5.80 M/cumm [facility] MCV 96.3 81.3 - 96.4 fL [facility] MCH 32.3 27.1 - 33.3 pg [facility] MCHC 33.6 32.3 - 35.7 g/dL [facility] RDW CV 13.5 11.1 - 14.9 % [facility] RDW SD 48.5(H) 35.7 - 48.1 fL [facility] NRBC abs 0.00 0.00 - 0.01 K/cumm [facility] Blood 06/12/2024 2:23 PM [employer] 06/12/2024 4:04 PM [employer] Shakila Jung MD LAB BLOOD ORDERABL ES Final Result Performing Organization Address [facility] de Phone Number [facility] Department [place] [address] * Troponin I high-sensitivity 2-hour (06/12/2024 1:56 PM [employer]) Trop I hs 10 <=35 ng/L Comment: Interpretive Data For further hscTnI resources including the diagnostic algorithm and an aid in interpretation, copy and paste this link: [email or web address].testcatalog.org/show/[email or web address] Current Interpretive Data last revised 2019. Trop I hs delta 1 ng/L [facility] Trop I hs interp Insignificant [facility] Blood 06/12/2024 1:56 PM [employer]ER 06/12/2024 2:22 PM [employer] Shakila Jung MD LAB BLOOD ORDERABL ES Final Result Performing Organization Address [facility] de Phone Number [facility] Department [place] [address] * CT Abdomen Pelvis W Contrast (06/12/2024 12:22 PM [employer]) Anatomical Region Laterality Modality Body N/A Computed Tomogra phy 06/12/2024 12:4 9 PM [employer] Impressions 06/12/2024 12:49 PM [employer] No acute findings in the abdomen/pelvis. Specifically, no bowel obstruction. Electronically signed by: Raul Whitfield M.D. Narrative 06/12/2024 12:49 PM [employer] EXAMINATION: Computed tomography of the abdomen and [...] ED PERIPHERAL LINE INSERTION (06/12/2024 11:50 AM [employer]) Narrative Shakila Jung MD - 06/12/2024 11:50 AM [employer] Shakila Jung MD 06/12/2024 11:50 AM Peripheral [...] and COVID-19 PCR Nasopharyngeal (06/12/2024 11:39 AM [employer]GGER) [facility] COVID-19 RNA Negative Negative [facility] Influenza A RNA Negative Negative [facility] Influenza B RNA Negative Negative [facility] RSV RNA Negative Negative [facility] Comment: Interpretive data: Testing performed by [facility] ([phone]). This test is performed using the Ambassador Xpert Xpress CoV-2/Flu/RSV plus assay. This is a multiplex, real-time reverse transcriptase PCR assay intended for the qualitative detection of nucleic acid from SARS-CoV-2, influenza A, influenza B, and respiratory syncytial virus. This assay has been cleared by the [place] Food and Drug administration. The performance characteristics have been verified by the [facility]. Results must be considered in the clinical context, and a negative result does not rule out infection. Interpretive Data last revised 2023 Nasopharyngeal 06/12/2024 11 :39 AM [employer] 06/12/2024 12:55 PM [employer]ER Narrative [facility] - 06/12/2024 1:39 PM [employer]ER Is the Patient experiencing symptoms consistent with COVID?->Unknown Result [facility] Shakila Jung MD LAB MICROBIOLOGY - GENERAL ORDERABLES Final Result Performing Organization Address [facility] Co de Phone Number [facility] [place] [address] [facility] * POCT creatinine (06/12/2024 11:29 AM [employer]) Creatinine POC 0.7 0.7 - 1.3 mg/dL Blood 06/12/2024 11:2 9 AM [employer] 06/12/2024 11:29 AM [employer] Result [facility] Shakila Jung MD LAB POCT ORDERABLE S - DEVICE Final Result Performing Organization Address [facility] de Phone Number [facility] [place] [address] * Troponin I high-sensitivity series (baseline, 2hr, 4hr, 6hr) (06/12/2024 11:22 AM [employer]) Trop I hs 9 <=35 ng/L Comment: Interpretive Data For further hscTnI resources including the diagnostic algorithm and an aid in interpretation, copy and paste this link: https://bjhlab.testcatalog.org/show/[email or web address] Current Interpretive Data last revised 2019. Blood 06/12/2024 11:2 2 AM [employer] 06/12/2024 1:06 PM [employer] Result [facility] Shakila Jung MD LAB BLOOD ORDERABL ES Final Result Performing Organization Address [facility] Co de Phone Number [facility] [place] [address] * eGFR (06/12/2024 11:22 AM [employer]) eGFR >90 >=60 mL/min/1. 73 m2 Comment: [...] reviewed 2021. Blood 06/12/2024 11:2 2 AM [employer] 06/12/2024 1:07 PM [employer] Shakila Jung MD LAB BLOOD ORDERABL ES Final Result [facility] One [facility] Department [place] [address] * Differential, auto (06/12/2024 11:22 AM [employer]BB[employer]GGER) Pathologist [facility] Neutrophil abs See Comment 1.5 - 6.5 Comment:Credited, specimen c lotted. Imm gran abs See Comment 0.0 - 0.1 [facility] Comment:Credited, specimen c lotted. Lymphocyte abs See Comment 0.8 - 3.3 [facility] Comment:Credited, specimen c lotted. Monocyte abs See Comment 0.2 - 0.8 [facility] Comment:Credited, specimen c lotted. Eosinophil abs See Comment 0.0 - 0.5 [facility] Comment:Credited, specimen c lotted. Basophil abs See Comment 0.0 - 0.1 [facility] Comment:Credited, specimen c lotted. Neutrophil pct See Comment [facility] Comment: Credited, specimen clotted. Interpretive Data Percent cell count reference ranges are not reported, since discordance with absolute values may lead to misinterpretation of CBC data. Current Interpretive Data was last revised on 2017. Imm gran pct See Comment [facility] Comment: Credited, specimen clotted. Interpretive Data Percent cell count reference ranges are not reported, since discordance with absolute values may lead to misinterpretation of CBC data. Current Interpretive Data was last revised on 2017. Lymphocyte pct See Comment [facility] Comment: Credited, specimen clotted. Interpretive Data Percent cell count reference ranges are not reported, since discordance with absolute values may lead to misinterpretation of CBC data. Current Interpretive Data was last revised on 2017. Monocyte pct See Comment [facility] Comment: Credited, specimen clotted. Interpretive Data Percent cell count reference ranges are not reported, since discordance with absolute values may lead to misinterpretation of CBC data. Current Interpretive Data was last revised on 2017. Eosinophil pct See Comment [facility] Comment: Credited, specimen clotted. Interpretive Data Percent cell count reference ranges are not reported, since discordance with absolute values may lead to misinterpretation of CBC data. Current Interpretive Data was last revised on 2017. Basophil pct See Comment [facility] Comment: Credited, specimen clotted. Interpretive Data Percent cell count reference ranges are not reported, since discordance with absolute values may lead to misinterpretation of CBC data. Current Interpretive Data was last revised on 2017. Blood 06/12/2024 11:2 2 AM [employer] CH[employer]GG[employer] 06/12/2024 1:07 PM [employer] us Shakila Jung MD LAB BLOOD ORDERABL ES Edited Result - Final [facility] Department [place] [address] * CBC with auto differential (06/12/2024 11:22 AM [employer]GG[employer]) WBC See Comment 3.8 - 9.9 Comment:Credited, specimen c lotted. Hgb See Comment 13.0 - 17.5 [facility] Comment:Credited, specimen c lotted. Hct See Comment 38.9 - 50.3 [facility] Comment:Credited, specimen c lotted. Plt See Comment 150 - 400 [facility] Comment: Credited, specimen clotted. spoke to ALFRED Velásquez 06/12/2024 14:17:24 [employer] fv MPV See Comment 9.1 - 12.3 [facility] Comment:Credited, specimen c lotted. RBC See Comment 4.30 - 5.80 [facility] Comment:Credited, specimen c lotted. MCV See Comment 81.3 - 96.4 [facility] Comment:Credited, specimen c lotted. MCH See Comment 27.1 - 33.3 [facility] Comment:Credited, specimen c lotted. MCHC See Comment 32.3 - 35.7 [facility] Comment:Credited, specimen c lotted. RDW CV See Comment 11.1 - 14.9 [facility] Comment:Credited, specimen c lotted. RDW SD See Comment 35.7 - 48.1 [facility] Comment:Credited, specimen c lotted. NRBC abs See Comment 0.00 - 0.01 K/cumm [facility] Comment:Credited, specimen c lotted. Blood 06/12/2024 11:2 2 AM [employer] CH[employer] PEGG[employer] 06/12/2024 1:07 PM [employer] Shakila Jung MD LAB BLOOD ORDERABL ES Final Result [facility] One [facility] Department [place] [address] * Lipase (06/12/2024 11:22 AM [employer]ER) Lipase 24 10 - 99 Units/L Blood 06/12/2024 11:2 2 AM [employer] CH[employer]ER 06/12/2024 1:07 PM [employer] Shakila Jung MD LAB BLOOD ORDERABL ES Final Result Performing Organization Address [facility] Co de Phone Number [facility] Department [place] [address] * (ABNORMAL) Valproic acid level, total (06/12/2024 11:22 AM [employer] PEGGER) Valproic Acid 48.0(L) 50.0 - 100.0 mcg/mL Comment: Interpretive Data Therapeutic or toxic effects of anticonvulsant drugs may occur at different concentrations in different patients and the correlation between dose and clinical effect must be evaluated individually. Current interpretative data was last revised on 13. Blood 06/12/2024 11:2 2 AM [employer]ER 06/12/2024 1:07 PM [employer]ER Shakila Jung MD LAB BLOOD ORDERABL ES Final Result Performing Organization Address [facility] de Phone Number [facility] Department [place] [address] * (ABNORMAL) Comprehensive metabolic panel (06/12/2024 11:22 AM [employer]GGER) Pathologist [facility] Sodium 142 135 - 145 mmol/L Potassium, pl 4.6 3.3 - 4.9 mmol/L [facility] Comment:Hemolyzed; Potassium value may be falsely elevated by as much as 0.6-1.0 mmol/L. Suggest redraw and reanalysis. Chloride 101 97 - 110 mmol/L [facility] CO2 29 22 - 32 mmol/L [facility] Anion gap 12 2 - 15 mmol/L [facility] BUN 11 6 - 25 mg/dL [facility] Creatinine 0.60(L) 0.80 - 1.30 mg/dL [facility] Glucose 89 70 - 199 mg/dL [facility] Comment: Interpretive Data Fasting glucose >/= [...] Calcium 10.3 8.5 - 10.3 mg/dL [facility] Bilirubin, total 0.3 0.1 - 1.2 mg/dL [facility] Protein, pl 8.5 6.5 - 8.5 g/dL [facility] Albumin 4.3 3.5 - 5.0 g/dL [facility] Alk phos 114 40 - 130 Units/L [facility] ALT 22 7 - 55 Units/L [facility] AST 45 10 - 50 Units/L [facility] Comment:Hemolyzed; result ma y be falsely elevated Blood 06/12/2024 11:2 2 AM [employer] 06/12/2024 1:07 PM [employer] Shakila Jung MD LAB BLOOD ORDERABL ES Final Result [facility] One [facility] Department [place] [address] * ECG 12-LEAD (06/12/2024 11:01 AM [employer]ER) Narrative [facility] - 06/12/2024 11:01 AM [employer]ER Shakila Jung MD 06/12/2024 11:02 AM ECG [...] MD ECG ORDERABLES Fi nal Result [facility] * TNI with LIPID PANEL (08/24/2017 4:57 PM CDT) Troponin I < 0.300 0.000 - 0.300 ng/mL 08/24/2017 5:29 PM T [facility] [employer] HISTORICAL RESULTS Comment: Reference using ZAC Chemiluminescence Negative: Repeat in 4-6 hours as indicated. Triglycerides 34 0 - 199 mg/dL 08/24/2017 5:30 PM T [facility] [employer] HISTORICAL RESULTS Comment:12 hr pc highly avani mmended for Triglyceride Cholesterol 129 0 - 199 mg/dL 08/24/2017 5:30 PM T [facility] [employer] HISTORICAL RESULTS Comment: Borderline: 200-239 High Risk: >239 HDL Cholesterol 71 mg/dL 8 5:30 PM T [facility] [employer] HISTORICAL RESULTS Comment: Reference Ranges: Males: >=40 mg/dL Females: >=50 mg/dL LDL Cholesterol, Calc 51 0 - 130 mg/dL 08/24/2017 5:30 PM T [facility] [employer] HISTORICAL RESULTS Comment:High Risk > 159 mg/d L Cholesterol/HDL Ratio 1.8 08/24/2017 5:30 PM T [facility] [employer] HISTORICAL RESULTS Comment: Cholesterol / HDL Ratio 3.5:1 or less is desirable. Cholesterol / HDL Ratio greater than 5:1 is considered higher risk for developing heart disease. 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 Source: [facility] [employer] 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 Source: [facility] [employer] 09/18/22 Acinetobacter os 09/18/[address] [facility] Advance Directives For more information, please contact: [phone] Documents on File Type Date Recorded Patient Fire Prevention Inspector Expl anation ADVANCE DIRECTIVE 10/08/2012 12:00 AM [facility] [employer] * Full Code (Latest Code Status on File) Date Activated Date Inactivated Comments 06/12/2024 3:22 PM 06/28/2024 9:30 PM * Full Code Date Activated Date Inactivated Comments 12/10/2020 9:05 AM 12/13/2020 10:44 PM Care Teams Ob/Gyn Physician Relationship Specialty Start Date End Date Marielena Smallwood MD [address] [place] [place] [address] PCP - General Family Practice 07/08/24
--- OUTSIDE RECORDS SUMMARY | 2024-08-20 00:53 | XMS_ITS | Encounter Summary ---
Author Organization [facility] Address [address] [place] [address] Care Team Providers Care Vb Developer Name Role Phone Frank Toure MD Unavailable Kayla Porras FOUNDER Primary Care Provider [phone] Misael Maradiaga DO Primary Care Provider [phone] oJyce Luevano FOUNDER Primary Care Provider Unavaila Marielena Adame MD Primary Care Provider [phone] Encounter Details Date Type Department Care Team (Latest Contact Info) Description 02/01/2018 Abstract [facility] , Jerica Cordon MD [...] on filedocumented in this encounter Care Teams Vb Developer Relationship Specialty Start Date End Date Kayla Porras NP [address] [place] [address] PCP - General 06/25/16 09/27/18 Misael Maradiaga DO [address] [place] [address] PCP - General FAMILY PRACTICE 09/28/18 01/13/20 Joyce L[place] [address] [address] PCP - General NURSE PRACTITIONER 01/14/20 10/26/23 Marielena Smallwood MD [address] [place] [id number] PCP - General FAMILY PRACTICE 10/27/23 Frank Toure MD [facility] [place] [address] [employer] Lei Seller CARDIOVASCULAR DISEASE 05/30/16 documented as of this encounter
--- OUTSIDE RECORDS SUMMARY | 2024-08-20 00:54 | XMS_ITS | Encounter Summary ---
Author Organization [facility] Address [address] [place] [address] Care Team Providers Care Commercial Energy Auditor Name Role Phone Frank Toure MD Unavailable Joyce Luevano NP Primary Care Provider Unavaila Marielena Adame MD Primary Care Provider [phone] Encounter Details Date Type Department Care Team (Late st Contact Info) Description 02/23/2022 MyChart Message Enc [facility] Family Medicine - [address] [id number] Joyce Luevano, BOUCHRA Bi updated [...] 10:33 AM CDT These updated through the [employer] system. documented in this encounter Plan of Treatment Not on file documented as of this encounter Visit Diagnoses Not on filedocumented in this encounter Care Teams Commercial Energy Auditor Relationship Specialty Start Date End Date Joyce Luevano NP [address] [place] [address] PCP - General NURSE PRACTITIONER 01/14/20 10/26/23 Marielena Smallwood MD [address] [place] [id number] PCP - General FAMILY PRACTICE 10/27/23 Frank Toure MD [address] [place] [address] [employer] Salesperson [employer] CARDIOVASCULAR DISEASE 05/30/16 documented as of this encounter
--- OUTSIDE RECORDS SUMMARY | 2024-08-20 00:54 | XMS_ITS | Clinical Summary ---
Author Organization [facility] Site Lock Address [address] [place] [address] Care Team Providers Care Shipping Room Helper Name Role Phone Elizabeth Sullivan RN Unavailable [phone] Dany Monsivais MD Primary Care Provider Source Comments [facility],non-owned Affiliates and Associated Physician Practices is amultiple site organization consisting of ambulatory clinics and hospital sitesin [place], [place], [place] and [place]. This disclosure is being madepursuant to the Care Everywhere program and may not contain all information available regarding this patient. Last updated 18.[facility] Site Lock Allergies Active Allergy Reactions Criticality Noted Date [...] Tube route 2 times daily 12/15/2022 Active Calcium Carbonate Antacid (calcium carbonate, 500 [...] once daily as needed for Constipation Active albuterol-ipratr opium (Duo-Neb) 0.5-2.5 (3) MG/3ML nebulizer solution Inhale 3 mL by mouth every 6 hours as needed for Shortness of Breath or Wheezing Active cloBAZam (Onfi) 10 MG tablet Take 1 (one) tablet by mouth 2 times daily 60 tablet 5 05/15/2024 Active finasteride (Proscar) 5 MG tablet 1 [...] for 90 days 1050 mL 2 07/18/2024 10/17/19 25 Active pantoprazole (Protonix) 40 MG packet Take 1 (one) packet by mouth 2 times daily for 60 days 07/18/2024 09/17/19 25 Active valproic acid (Depakene) 250 MG/5ML solution 10 mL by Per G Tube route every 8 hours 07/18/2024 Active acetaminophen (Tylenol) 325 MG tablet 2 (two) tablets by Enteral Tube route 3 times daily Maximum allowable Acetaminophen amount = 4 Grams (4000 mg) / 24 hours. Pt takes 160 mg/5mL liquid which is the same as 325 mg tab 08/08/2024 Active pantoprazole EC (Protonix) 40 MG tablet Take 1 (one) tablet by mouth 2 times daily 08/08/2024 Active acetaminophen (Tylenol) 325 MG tablet 2 (two) tablets by Enteral Tube route every 6 hours as needed Maximum allowable Acetaminophen amount = 4 Grams (4000 mg) / 24 hours. 01/12/2023 08/09/19 25 Discontinued Active Problems Problem Noted Date Diagnosed Date [...] No evidence of infection Urine cultures from [facility] last month were negative growth as [...] Department Care Team Description 08/02/2024 4:31 PM HOSTLER HELPER - 08/08/2024 8:48 PM CDT Hospital Encounter [facility] [address] [place] [address] Elmo Johnson MD Mayer, Joshua C, DO Arshad, Iqra, MD Archuleta, Lydia, MD Joag, Madhura, MD Internal Medicine Discharge Disposition: Jail or Supportive Care 08/02/2024 1:23 AM HOSTLER HELPER - 08/02/2024 8:15 AM HOSTLER HELPER Emergency [facility] EMERGENCY DEPARTMENT [address] [place] [phone] Arthur Marinelli MD Other tracheostomy complication (Primary Dx); Abdominal pain, unspecified abdominal location Discharge Disposition: [facility] Facility 08/02/2024 Travel 07/27/2024 3:54 PM HOSTLER HELPER - 07/28/2024 6:53 AM HOSTLER HELPER Emergency [facility] EMERGENCY DEPARTMENT [address] [place] [phone] Serjio Vilchis MD Feeding intolerance (Primary Dx); Generalized abdominal pain; Chronic pulmonary aspiration, initial encounter Discharge Disposition: [facility] Facility 07/27/2024 Travel 07/18/2024 4:15 PM HOSTLER HELPER - 07/18/2024 4:45 PM HOSTLER HELPER Surgery [facility] ENDOSCOPY [address] [place] [phone] Clifton Trinh MD EGD(ISO) 07/18/2024 4:05 PM HOSTLER HELPER Anesthesia Event [facility] ENDOSCOPY [address] [place] [phone] Teri Trent MD Dobbs, Kristin L, CELLULAR BIOLOGIST-WILDLIFE CONSERVATION PROFESSOR 07/16/2024 9:23 PM HOSTLER HELPER - 07/19/2024 5:51 PM HOSTLER HELPER Hospital Encounter [facility] [address] ACUTE [address] [place] [phone] Quan Gan MD Arshad, Iqra, MD Bastin, Taylor J, MD Morreale, Peter J III, MD Emergency Medicine Discharge Disposition: [facility] Facility 07/16/2024 Travel 06/07/2024 5:04 PM HOSTLER HELPER - 06/09/2024 9:50 PM HOSTLER HELPER Hospital Encounter [facility] Early Admission Unit [address] [place] [address] Elizabeth Hernandez MD Miller, MD Marleny Caldera Shiva F, MD Heis, Farah, MD Internal Medicine Discharge Disposition: Other Facility Not Defined Elsewhere 06/07/2024 Travel from Last 3 Months Immunizations Name Administration Dates Next Due [employer] primary monoval ent 12+ yr 0.3mL Purple [...] and heating? Not hard at all 08/06/2024 [facility] - Occupational Stress [...] any time in the past 12 m [facility], were you homeless or living [...] 72.6 kg (160 lb) 08/04/2024 12:00 AM HOSTLER HELPER Height 175.3 cm (5' 9.02 ) 08/04/2024 12:[address] Body Mass Index 23.62 08/04/2024 12:00 AM HOSTLER HELPER Plan of Treatment Upcoming Encounters Date Type Department Care Team (Late st Contact Info) Description 12/05/2024 1:00 PM CDT Office Visit [facility] - Neurology [address] [place] [address], [place] [phone] Sean Raymundo, [address] [place] [address] [place] [phone] Health Maintenance Due Date Last Done Comments [...] 06/06/2027 06/06/2017, 03/23/2017 SCREENING FOR DIABETES 08/07/2027 , 08/05/2024, 08/05/2024, Additional history exists HIV SCREENING Completed 09/01/2022, 04/0 01/2019, 01/30/2018, Additional history exists HEPATITIS C [...] POINT OF CARE Routine 08/05/2024 1:43 AM HOSTLER HELPER CBC W/O DIFFERENTIAL Routine 08/05/2024 1:02 AM HOSTLER HELPER Nausea without vomiting PT-INR [facility] Routine 08/05/2024 1:02 AM HOSTLER HELPER Nausea without vomiting MAGNESIUM BLOOD Routine 08/05/2024 1:02 AM HOSTLER HELPER Nausea without vomiting RENAL FUNCTION PANEL Routine 08/05/2024 1:02 AM HOSTLER HELPER Nausea without vomiting CBC W/O DIFFERENTIAL Routine 08/04/2024 12:12 PM HOSTLER HELPER Nausea without vomiting PSA FREE + TOTAL PANEL AM Draw 08/04/2024 12:12 PM HOSTLER HELPER Acute cystitis without hematuria PT-INR [facility] Routine 08/04/2024 12:12 PM HOSTLER HELPER Nausea without vomiting MAGNESIUM BLOOD Routine 08/04/2024 12:12 PM HOSTLER HELPER Nausea without vomiting RENAL FUNCTION PANEL Routine 08/04/2024 12:12 PM HOSTLER HELPER Nausea without vomiting CULTURE URINE STAT 08/03/2024 8:53 AM HOSTLER HELPER Acute cystitis without hematuria HEMOGLOBIN A1C RINKU 08/03/2024 5:18 AM HOSTLER HELPER Nausea without vomiting CBC W/O DIFFERENTIAL STAT 08/03/2024 5:18 AM HOSTLER HELPER Nausea without vomiting PT-INR [facility] STAT 08/03/2024 5:18 AM HOSTLER HELPER Nausea without vomiting MAGNESIUM BLOOD STAT 08/03/2024 5:18 AM HOSTLER HELPER Nausea without vomiting RENAL FUNCTION PANEL STAT 08/03/2024 5:18 AM HOSTLER HELPER Nausea without vomiting TYPE + SCREEN PANEL STAT 08/02/2024 9 :[address] CHEST ABDOMEN PELVIS W CONT STAT 08/02/2024 9:42 PM HOSTLER HELPER Nausea without vomiting XR CHEST 1VW PORTABLE STAT 08/02/2024 5:15 PM HOSTLER HELPER Nausea without vomiting URINALYSIS REFLEX TO MICROSCOPIC NO CULTURE STAT 08/02/2024 5:08 PM HOSTLER HELPER PT-INR [facility] STAT 08/02/2024 5:08 PM HOSTLER HELPER COMPREHENSIVE METABOLIC PANEL STAT 08/02/2024 5:08 PM HOSTLER HELPER LIPASE BLOOD STAT 08/02/2024 5:08 PM HOSTLER HELPER CBC W AUTO DIFFERENTIAL STAT 08/02/2024 5:08 PM HOSTLER HELPER XR CHEST 1VW PORTABLE STAT 08/02/2024 2:33 AM HOSTLER HELPER Abdominal pain, unspecified abdominal location LIPASE BLOOD STAT 08/02/2024 2:03 AM HOSTLER HELPER COMPREHENSIVE METABOLIC PANEL STAT 08/02/2024 2:03 AM HOSTLER HELPER CBC W AUTO DIFFERENTIAL STAT 08/02/2024 2:[address] CHEST ABDOMEN PELVIS W CONT STAT 07/28/2024 12:25 AM HOSTLER HELPER Generalized abdominal pain COMPREHENSIVE METABOLIC PANEL STAT 07/27/2024 6:26 PM HOSTLER HELPER CBC W AUTO DIFFERENTIAL STAT 07/27/2024 6:26 PM HOSTLER HELPER TROPONIN-I HIGH SENSITIVE BASELINE + 1HR STAT 07/27/2024 6:26 PM HOSTLER HELPER MAGNESIUM BLOOD STAT 07/27/2024 6:26 PM HOSTLER HELPER LIPASE BLOOD STAT 07/27/2024 6:26 PM HOSTLER HELPER EKG 12-LEAD Routine 07/27/2024 5:34 PM HOSTLER HELPER Generalized abdominal pain XR CHEST 1VW PORTABLE Routine 07/27/2024 12:39 PM HOSTLER HELPER Nausea and vomiting, unspecified vomiting type GLUCOSE - POINT OF CARE Routine 07/19/2024 5:00 PM HOSTLER HELPER GLUCOSE - POINT OF CARE Routine 07/19/2024 12:10 PM HOSTLER HELPER GLUCOSE - POINT OF CARE Routine 07/19/2024 8:10 AM HOSTLER HELPER CBC W AUTO DIFFERENTIAL Routine 07/19/2024 5:27 AM HOSTLER HELPER Coffee ground emesis GLUCOSE - POINT OF CARE Routine 07/19/2024 3:34 AM HOSTLER HELPER GLUCOSE - POINT OF CARE Routine 07/18/2024 11:33 PM HOSTLER HELPER GLUCOSE - POINT OF CARE Routine 07/18/2024 8:01 PM HOSTLER HELPER PATHOLOGY TISSUE Routine 07/18/2024 4:27 PM HOSTLER HELPER Coffee ground emesis PA ED EGD FLEX TRANSORAL DX 07/18/2024 4:00 PM HOSTLER HELPER Coffee ground emesis EGD Routine 07/18/2024 3:52 PM HOSTLER HELPER GLUCOSE - POINT OF CARE Routine 07/18/2024 12:11 PM HOSTLER HELPER GLUCOSE - POINT OF CARE Routine 07/18/2024 11:44 AM HOSTLER HELPER CBC W AUTO DIFFERENTIAL Routine 07/18/2024 8:07 AM HOSTLER HELPER Coffee ground emesis PT-INR [facility] Routine 07/18/2024 8:07 AM HOSTLER HELPER Nausea and vomiting, unspecified vomiting type VALPROIC ACID LEVEL Routine 07/18/2024 8 :07 AM HOSTLER HELPER Nausea and vomiting, unspecified vomiting type PHOSPHORUS BLOOD AM Draw 07/18/2024 8:07 AM HOSTLER HELPER Coffee ground emesis COMPREHENSIVE METABOLIC PANEL AM Draw 07/18/2024 8:07 AM HOSTLER HELPER Coffee ground emesis MAGNESIUM BLOOD AM Draw 07/18/2024 8:07 AM HOSTLER HELPER Coffee ground emesis GLUCOSE - POINT OF CARE Routine 07/18/2024 7:42 AM HOSTLER HELPER GLUCOSE - POINT OF CARE Routine 07/18/2024 3:31 AM HOSTLER HELPER GLUCOSE - POINT OF CARE Routine 07/17/2024 11:36 PM HOSTLER HELPER GLUCOSE - POINT OF CARE Routine 07/17/2024 8:42 PM HOSTLER HELPER CARDIAC EKG ORDER 07/17/2024 1:4 4 PM HOSTLER HELPER URINE MICROSCOPIC ONLY REFLEX TO CULTURE STAT 07/17/2024 9:58 AM HOSTLER HELPER URINALYSIS REFLEX MICROSCOPIC REFLEX CULTURE STAT 07/17/2024 9:58 AM HOSTLER HELPER CULTURE URINE STAT 07/17/2024 9:58 AM HOSTLER HELPER CBC W AUTO DIFFERENTIAL STAT 07/17/2024 8:31 AM HOSTLER HELPER Coffee ground emesis TROPONIN-I HIGH SENSITIVE REFLEX 1HOUR Timed 07/17/2024 12:03 AM HOSTLER HELPER CBC W AUTO DIFFERENTIAL STAT 07/17/2024 12:03 AM HOSTLER HELPER SARS-COV-2 (COVID-19) FLU A/B RSV PCR RAPID STAT 07/17/2024 12:[address] ABDOMEN PELVIS W CONTRAST STAT 07/16/2024 11:41 PM HOSTLER HELPER Nausea and vomiting, unspecified vomiting type Abdominal distention Other constipation CK BLOOD STAT 07/16/2024 10:44 PM HOSTLER HELPER TROPONIN-I HIGH SENSITIVE BASELINE + 1HR STAT 07/16/2024 10:44 PM HOSTLER HELPER LIPASE BLOOD STAT 07/16/2024 10:44 PM HOSTLER HELPER LACTIC ACID BLOOD REFLEX TO REPEAT STAT 07/16/2024 10:44 PM HOSTLER HELPER COMPREHENSIVE METABOLIC PANEL STAT 07/16/2024 10:44 PM HOSTLER HELPER XR CHEST 1VW PORTABLE STAT 07/16/2024 10:28 PM HOSTLER HELPER Nausea and vomiting, unspecified vomiting type CBC W/O DIFFERENTIAL AM Draw 06/09/2024 1:20 AM HOSTLER HELPER GLUCOSE - POINT OF CARE Routine 06/08/2024 6:22 PM HOSTLER HELPER GLUCOSE - POINT OF CARE Routine 06/08/2024 1:12 PM HOSTLER HELPER PHOSPHORUS BLOOD STAT 06/08/2024 4:11 AM HOSTLER HELPER MAGNESIUM BLOOD STAT 06/08/2024 4:11 AM HOSTLER HELPER LIPID PROFILE STAT 06/08/2024 4:11 AM HOSTLER HELPER CBC W/O DIFFERENTIAL STAT 06/08/2024 4:11 AM HOSTLER HELPER BASIC METABOLIC PANEL (CALCIUM TOTAL) STAT 06/08/2024 4:11 AM HOSTLER HELPER PT-INR [facility] STAT 06/08/2024 4:11 AM HOSTLER HELPER URINALYSIS REFLEX MICROSCOPIC REFLEX CULTURE STAT 06/07/2024 10:24 PM HOSTLER HELPER LIPASE BLOOD STAT 06/07/2024 8:01 PM HOSTLER HELPER COMPREHENSIVE METABOLIC PANEL STAT 06/07/2024 8:01 PM HOSTLER HELPER CBC W AUTO DIFFERENTIAL STAT 06/07/2024 8:01 PM HOSTLER HELPER HEPATITIS C AB SCREEN RFLX NAAT QUANT [...] Impression: Successful exchange of the existing 18 Djiboutian gastrojejunostomy catheter for a new 18 [place]iboutian gastrojejunostomy catheter under fluoroscopic guidance, as described [...] jelly Procedure: Exchange of the existing 18 Djiboutian gastrojejunostomy catheter for a new 18 Djiboutian gastrojejunostomy catheter under fluoroscopic guidance. Start time: 1435 End time: 1451 Fluoroscopic time: 4.0 minutes Contrast: 10 mL of Isovue-300 Procedure in detail: The procedure, risks, and possible complications were explained to the patient in detail, and informed consent was obtained. The patient was placed supine on the procedure table. A sight mounter film of abdomen was obtained, which showed [...] was removed over the wire. A 4 Djiboutian Kumpe catheter was advanced over the wire and using this combination, was advanced into the jejunum. The Kumpe catheter was then removed over the wire. A new 18 Djiboutian gastrojejunostomy catheter was then advanced over the [...] jelly Procedure: Exchange of the existing 18 Djiboutian gastrojejunostomy catheter for a new 18 Djiboutian gastrojejunostomy catheter under fluoroscopicguidance. Start time: 1435 End time: 1451 Fluoroscopic time: 4.0 minutes Contrast: 10 mL of Isovue-300 Procedure in detail: The procedure, risks, and possible complications were explained to the patient in detail, and informed consent was obtained. The patient was placed supine on the procedure table. A sight mounter film of abdomen wasobtained, which showed the [...] was removed over the wire. A 4 Djiboutian Kumpe catheter wasadvanced over the wire and using this combination, was advanced into the jejunum. The Kumpe catheter was then removed over the wire. A new 18 Djiboutian gastrojejunostomy catheter was then advanced over the guidewire under fluoroscopic guidance. The catheter was secured by balloon insufflation. Hand injection of contrast through the gastric port confirmedintraluminal position within the stomach. Hand injection of contrast through thejejunal port confirmed intraluminal position within the jejunum. Steriledressing was applied. The patient tolerated the procedure well and [facility]. There were no immediate complicationsassociated with the procedure. Impression: Successful exchange of the existing 18 Frenchgastrojejunostomy catheter for a new 18 Djiboutian gastrojejunostomy catheter underfluoroscopic guidance, as described above. [...] > Dictated by Yessica Lovell MD, MD (sales vice president). I, Bebo Kuo MD have personally reviewed and interpreted this examination/study. > Interpreting Provider: Bebo Kuo MD on 08/06/2024 1:31 PM Narrative 08/06/2024 1:31 PM CDT PROCEDURE: CT ABDOMEN WO CONTRAST, DATE/TIME OF EXAM: 08/06/2024 11:01 AM, LOCATION [facility] INDICATION: R11.0: Nausea without vomiting Z93.1: [...] CONTRAST, DATE/TIME OF EXAM: 08/06/2024 11:01AM, LOCATION [facility] INDICATION: R11.0: Nausea without vomiting Z93.1: [...] > Dictated by Yessica Lovell MD, MD (sales vice president). I, Bebo Kuo MD have personally reviewed and interpreted this examination/study. > Interpreting Provider: Bebo Kuo MD on 51:31 PM Yary James MD CT ORDERABLES * GLUCOSE - POINT OF CARE (08/06/2024 6:45 AM CDT) Only the most recent of16 resultswithin the time period is included. Glucose WB/POC 92 70 - 99 mg/dL 08/06/2024 6:46 AM CDT [facility]OR[facility] Specimen Type Cap Fingerstick 2024 6:46 AM CDT [facility] Blood BLOOD SPECIMEN / Unknown 08/06/2024 6:45 AM CDT 08/06/2024 6:46 AM CDT Yary James MD LAB - POINT OF CARE ORDERABLES [facility] [address] [place] [phone], [facility] [phone] * XR Abdomen Kub Portable (08/05/2024 6:14 AM CDT) Anatomical Region Laterality Modality Abdomen Digital Radiogra phy 08/05/2024 9:25 AM CDT Impressions 08/05/2024 5:10 PM CDT IMPRESSION: No radiographic evidence of acute intra-abdominal process. Report dictated by Sierra Lyman Dr, MD (sales vice president). I, Ramon Ross MD have personally reviewed and interpreted this examination/study. > Interpreting Provider: Ramon Ross MD on 08/05/2024 5:10 PM Narrative 08/05/2024 5:10 PM CDT PROCEDURE: XR ABDOMEN KUB PORTABLE, DATE/TIME OF EXAM: 08/05/2024 6:14 AM, LOCATION [facility] INDICATION: R11.2: Nausea and vomiting, unspecified [...] PORTABLE, DATE/TIME OF EXAM: 08/05/2024 6:14AM, LOCATION [facility] INDICATION: R11.2: Nausea and vomiting, unspecified [...] Report dictated by Sierra Lyman Dr, MD (sales vice president). I, Ramon Ross MD have personally reviewed and interpreted this examination/study. > Interpreting Provider: Ramon Ross MD on 08/05/2024 5:10 PM Neha Palomino MD DIAGNOSTIC IMAGING O RDERABLES * PT-INR [facility] (08/05/2024 1:02 AM HOSTLER HELPER) Only the most recent of6 resultswithin the time period is included. Pathologist [facility] [place] PT 13.8 12.1 - 14.8 Seconds 08/05/2024 3:57 AM T [facility] INR 1.1 See Comment 08/05/2024 3:57 AM [facility] Comment:The suggested therap eutic range for standard coumadin (warfarin) therapy is an INR of 2.0-3.0. For high-risk patients (Mechanical Mitral Valve Prosthesis, etc.), the suggested prophylactic therapeutic range is an INR of 2.5-3.5. Blood BLOOD SPECIMEN / Unknown Lab Venipuncture / Unknown 08/05/2024 1:02 AM HOSTLER HELPER 08/05/2024 3:37 AM CDT Lowell Cao DO LAB - COAGULATION OR DERABLES [facility] [address] [place] [phone], [facility] [phone] * (ABNORMAL) CBC W/O DIFFERENTIAL (08/05/2024 1:02 AM HOSTLER HELPER) Only the most recent of5 resultswithin the time period is included. Pathologist [facility] WBC 6.3 4.0 - 10.7 x10E9/L 08/05/2024 3:57 AM [facility] RBC Count 4.08(L) 4.30 - 5.80 x10E12/L 08/05/2024 3:57 AM [facility] Hemoglobin 12.8(L) 13.3 - 17.5 g/dL 08/05/2024 3:57 AM [facility] Hematocrit 38.5(L) 38.7 - 51.1 % 08/05/2024 3:57 AM [facility] MCV 94.4 80.0 - 98.0 fL 08/05/2024 3:57 AM [facility] MCH 31.4 26.7 - 33.6 pg 08/05/2024 3:57 AM [facility] MCHC 33.2 31.7 - 36.3 g/dL 08/05/2024 3:57 AM [facility] RDW-CV 13.2 11.3 - 14.8 % 08/05/2024 3:57 AM [facility] Platelet Count 187 150 - 420 x10E9/L 08/05/2024 3:57 AM [facility] MPV 13.2(H) 7.8 - 11.4 fL 08/05/2024 3:57 AM [facility] Blood BLOOD SPECIMEN / Unknown Lab Venipuncture / Unknown 08/05/2024 1:02 AM HOSTLER HELPER 08/05/2024 3:37 AM [facility] [place] Marianne Daniels MD LAB - HEMATOLOGY ORD ERABLES [facility] [address] [place] [address], [facility] [phone] * (ABNORMAL) RENAL FUNCTION PANEL (08/05/2024 1:02 AM HOSTLER HELPER) Only the most recent of3 resultswithin the time period is included. Pathologist [facility] BUN 16 7 - 26 mg/dL 08/05/2024 4:02 AM [facility] Creatinine 0.63(L) 0.71 - 1.16 mg/dL 08/05/2024 4:02 AM [facility] Sodium 140 136 - 145 mmol/L 08/05/2024 4:02 AM [facility] Potassium 4.0 3.5 - 4.5 mmol/L 08/05/2024 4:02 AM [facility] Chloride 107 98 - 107 mmol/L 08/05/2024 4:02 AM [facility] CO2 24 22 - 29 mmol/L 08/05/2024 4:02 AM [facility] Glucose 79 70 - 99 mg/dL 08/05/2024 4:02 AM [facility] Albumin 3.3(L) 3.4 - 5.0 g/dL 08/05/2024 4:02 AM [facility] Calcium 8.9 8.4 - 10.2 mg/dL 08/05/2024 4:02 AM [facility] Phosphorus 3.6 2.8 - 5.1 mg/dL 08/05/2024 4:02 AM [facility] Anion Gap 9 6 - 16 08/05/2024 4:02 AM [facility] BUN/Creatinine Ratio 25(H) 7 - 23 08/05/2024 4:02 AM [facility] Osmolality Calculated 290 275 - 295 mOsm/kg 08/05/2024 4:02 AM [facility] eGFR by CKD-EPI >90 >=90 mL/min/1.7 3 m2 08/05/2024 4:02 AM [facility] Blood BLOOD SPECIMEN / Unknown Lab Venipuncture / Unknown 08/05/2024 1:02 AM HOSTLER HELPER 08/05/2024 3:37 AM [facility] [place] Lowell Cao DO LAB - CHEMISTRY MARSHAL Diana Organization Address City/State/ZIP Co de Phone Number [facility] [address] [place] [phone], [facility] [phone] * MAGNESIUM BLOOD (08/05/2024 1:02 AM HOSTLER HELPER) Only the most recent of6 resultswithin the time period is included. Magnesium 1.9 1.6 - 2.6 mg/dL 08/05/2024 4:02 AM CDT [facility] Blood BLOOD SPECIMEN / Unknown Lab Venipuncture / Unknown 08/05/2024 1:02 AM HOSTLER HELPER 08/05/2024 3:37 AM CDT Lowell Coa DO LAB - CHEMISTRY MARSHAL Diana Organization Address City/[facility]/ZIP Co de Phone Number [facility] [address] [place] [phone], [facility] [phone] * PSA FREE + TOTAL PANEL (08/04/2024 12:12 PM HOSTLER HELPER) [facility] PSA Total 1.7 0.0 - 4.0 ng/mL 08/04/2024 1:33 PM [facility] PSA Free 0.21 0.00 - 0.50 ng/mL 08/04/2024 1:33 PM [facility] PSA % Free 12 See Comment % 08/04/2024 1:33 PM [facility] Comment: [facility] Clinical Laboratory uses the Mancia Small Kick Press Operator method for Total and Free PSA measurements. [...] Free and/or Total PSA alone. Distribution of UNDERGROUND PRODUCTION FOREPERSON % Free PSA Values for specimens with UNDERGROUND PRODUCTION FOREPERSON Total PSA values between 4.0 and 10.0 ng/mL: % Free PSA Ranges <10.0 10.0-15.0 15.0-20.0 20.0-26.0 >26.0 Number of ----- --------- --------- --------- ----- Subjects Biopsy --------- ------ Negative 307 9.4 22.5 25.4 24.8 17.9 Positive 123 27.6 30.9 17.9 15.4 8.1 PSA % Free 08/04/2024 1:33 PM HOSTLER HELPER [facility] Blood BLOOD SPECIMEN / Unknown Lab Venipuncture / Unknown 08/04/2024 12:12 PM HOSTLER HELPER 08/04/2024 12:42 PM HOSTLER HELPER Marianne Daniels MD LAB - CHEMISTRY MARSHAL Diana Organization Address City/State/ZIP Co de Phone Number [facility] [address] [place] [phone], [facility] [phone] * (ABNORMAL) CULTURE URINE (08/03/2024 8:53 AM HOSTLER HELPER) Only the most recent of2 resultswithin the time period is included. Culture Urine 50,000-100,000 CFU/mL Pseudomonas aeruginosa(A) JELLY 08/07/2024 6:04 AM [facility] Comment:This is an appended report. These results have been appended to a previously final verified report. Culture Urine 50,000-100,000 CFU/mL Corynebacterium striatum(A) JELLY 08/07/2024 6:04 AM [facility] Comment:This is an appended report. These results have been appended to a previously final verified report. Culture Urine 50,000-100,000 CFU/mL Providencia stuartii(A) JELLY 08/07/2024 6:04 AM [facility] Urine URINE SPECIMEN OBTAINED BY CLEAN CATCH PROCEDURE / Unknown Collection / Unknown 08/03/2024 8:53 AM HOSTLER HELPER 08/03/2024 8:56 AM HOSTLER HELPER Narrative Organism Antibiotic Method Susceptibility Pseudomonas aeruginosa [...] Daniels MD LAB - MICROBIOLOGY O RDERABLES [facility] MICRO[facility] [address] [place] [address], [facility] [phone] * HEMOGLOBIN A1C (08/03/2024 5:18 AM HOSTLER HELPER) Hemoglobin A1c 5.3 <=5.6 % 08/03/2024 8:[address] [facility] Estimated Average Glucose 105 mg/dL 08/03/2024 8:[address] [facility] Comment: HbA1c Interpretation: Normal : < 5.7% Pre-diabetes: 5.7-6.4% Diabetes: Equal to or greater than 6.5% Test results diagnostic of diabetes should be repeated for confirmation. Treatment target values recommended by ADA and other clinical organizations should be used to evaluate metabolic control in patients. Reference: [place] [employer], Standards of Care in Diabetes -2020 In patients 70 years and older consider HbA1c target range of 7.0-7.5% (Reference: Lukas Matamoros et al. JAMDA. 2012) The Sebia assay for the measurement of HbA1c is a National Glycohemoglobin Standardization Program (NGSP) certified method. Blood BLOOD SPECIMEN / Unknown Venipuncture / Unknown 08/03/2024 5:18 AM HOSTLER HELPER 08/03/2024 5:24 AM HOSTLER HELPER Lowell Cao DO LAB - CHEMISTRY MARSHAL MEDEROS [facility] [address] [place] [address], [facility] [phone] * TYPE + SCREEN PANEL (08/02/2024 9:53 PM HOSTLER HELPER) Antibody Screen NEG 10:41 PM HOSTLER HELPER [facility] BLOOD BANK LAB ABO Rh O POS 08/02/2024 10:41 PM HOSTLER HELPER [facility] B[facility]OD [facility] LAB Blood Bank BLOOD SPECIMEN / Unknown Venipuncture / Unknown 08/02/2024 9:53 PM HOSTLER HELPER 08/02/2024 10:05 PM HOSTLER HELPER Elmo Johnson MD LAB - BLOOD BANK ORD ERABLES [facility] BLOOD BANK LAB [address] [place] [address], [facility] [phone] * CT Chest Abdomen Pelvis W Cont (08/02/2024 9:42 PM HOSTLER HELPER) Only the most recent of2 resultswithin the time period is included. Anatomical Region Laterality Modality Chest, Abdomen, Pelvis Computed Tomography 08/02/2024 9:56 PM HOSTLER HELPER Impressions 08/02/2024 11:19 PM HOSTLER HELPER Impression: 1.Trace left-sided pleural effusion, bilateral dependent [...] cystitis. > Dictated by Justin Burrell MD (sales vice president). I, Bebo Kuo MD have personally reviewed and interpreted this examination/study. > Interpreting Provider: Bebo Kuo MD on 08/02/2024 11:19 PM Narrative 08/02/2024 11:19 PM HOSTLER HELPER PROCEDURE: CT CHEST ABDOMEN PELVIS W CONT, DATE/TIME OF EXAM: 08/02/2024 9:43 PM, LOCATION [facility] INDICATION: R11.0: Nausea without vomiting ADDITIONAL [...] DATE/TIME OF EXAM: 08/02/2024 9:43 PM, LOCATION [facility] INDICATION: R11.0: Nausea without vomiting ADDITIONAL [...] cystitis. > Dictated by Justin Burrell MD (sales vice president). I, Bebo Kuo MD have personally reviewed and interpreted this examination/study. > Interpreting Provider: Bebo uKo MD on 511:19 PM [address]mo [address] MD CT ORDERABLES * XR CHEST 1VW PORTABLE (08/02/2024 5:15 PM HOSTLER HELPER) Only the most recent of4 resultswithin the time period is included. Anatomical Region Laterality Modality Chest Digital Radiogra phy 08/02/2024 5:27 PM HOSTLER HELPER Narrative 08/03/2024 9:31 AM HOSTLER HELPER PROCEDURE: XR CHEST 1VW PORTABLE, DATE/TIME OF EXAM: 08/02/2024 5:15 PM, LOCATION [facility] INDICATION: R11.0: Nausea without vomiting ADDITIONAL [...] abnormality. > Dictated by Meeta Leblanc MD (sales vice president) Ramon Thomason MD have personally reviewed and interpreted this examination/study. > Interpreting Provider: Ramon Ross MD on 08/03/2024 9:31 AM Procedure Note Ramon Ross MD - 08/03/2024 PROCEDURE: XR CHEST 1VW PORTABLE, DATE/TIME OF EXAM: 08/02/2024 5:15 PM, LOCATION [facility] INDICATION: R11.0: Nausea without vomiting ADDITIONAL [...] osseousabnormality. > Dictated by Meeta Leblanc MD (sales vice president) Ramon Thomason MD have personally reviewed and interpreted this examination/study. > Interpreting Provider: Ramon Ross MD on 08/03/2024 9:31 AM Elmo Johnson MD DIAGNOSTIC IMAGING O RDERABLES * (ABNORMAL) URINALYSIS REFLEX TO MICROSCOPIC NO CULTURE (08/02/2024 5:08 PM HOSTLER HELPER) Color UA Yellow Yellow, Straw 08/02/2024 5:46 PM HOSTLER HELPER [facility] Clarity UA Turbid(A) Clear 08/02/2024 5:46 PM HOSTLER HELPER [facility] Glucose UA Normal Normal 08/02/2024 5:46 PM [facility] Bilirubin UA Negative Negative 08/02/2024 5:46 PM [facility] Ketone UA Negative Negative 08/02/2024 5:46 PM [facility] Specific [place] UA 1.015 1.005 - 1.030 08/02/2024 5:46 PM [facility] Blood UA Negative Negative 08/02/2024 5:46 PM [facility] pH UA 7.0 5.0 - 9.0 pH 08/02/2024 5:46 PM [facility] Protein UA Trace(A) Negative 08/02/2024 5:46 PM [facility] Urobilinogen UA 3.0(A) Normal mg/dL 08/02/2024 5:46 PM [facility] Nitrite UA Positive(A) Negative 08/02/2024 5:46 PM [facility] Leukocyte UA 500 NOEL/uL(A) Negative 08/02/2024 5:46 PM [facility] RBC UA 11-20(A) 0 - 5 # /hpf 08/02/2024 5:46 PM [facility] WBC UA >100(A) 0 - 5 # /hpf 08/02/2024 5:46 PM [facility] Bacteria UA 1+(A) None Seen 08/02/2024 5:46 PM [facility] Squamous Epithelial Cells None Seen 0 - 5 /hpf 08/02/2024 5:46 PM [facility] Urine URINE SPECIMEN OBTAINED BY SINGLE CATHETERIZATION OF URINARY BLADDER / Unknown Collection / Unknown 08/02/2024 5:08 PM HOSTLER HELPER 08/02/2024 5:11 PM HOSTLER HELPER Elmo Johnson MD LAB - URINALYSIS ORD ERABLES [facility] [address] [place] [address], [facility] [phone] * (ABNORMAL) CBC W AUTO DIFFERENTIAL (08/02/2024 5:08 PM HOSTLER HELPER) Only the most recent of8 resultswithin the time period is included. WBC 8.4 4.0 - 10.7 x10E9/L 08/02/2024 5:22 PM [facility] RBC Count 4.27(L) 4.30 - 5.80 x10E12/L 08/02/2024 5:22 PM [facility] Hemoglobin 13.6 13.3 - 17.5 g/dL 08/02/2024 5:22 PM [facility] Hematocrit 41.1 38.7 - 51.1 % 08/02/2024 5:22 PM [facility] MCV 96.3 80.0 - 98.0 fL 08/02/2024 5:22 PM [facility] MCH 31.9 26.7 - 33.6 pg 08/02/2024 5:22 PM [facility] MCHC 33.1 31.7 - 36.3 g/dL 08/02/2024 5:22 PM [facility] RDW-CV 13.2 11.3 - 14.8 % 08/02/2024 5:22 PM [facility] Platelet Count 250 150 - 420 x10E9/L 08/02/2024 5:22 PM [facility] MPV 13.0(H) 7.8 - 11.4 fL 08/02/2024 5:22 PM [facility] Neutrophil % 68.1 41.0 - 74.0 % 08/02/2024 5:22 PM [facility] Lymphocyte % 22.2 17.0 - 47.0 % 08/02/2024 5:22 PM [facility] Monocyte % 6.8 3.0 - 11.0 % 08/02/2024 5:22 PM [facility] Eosinophil % 2.3 0.0 - 7.0 % 08/02/2024 5:22 PM [facility] Basophil % 0.4 0.0 - 1.6 % 08/02/2024 5:22 PM [facility] Immature Granulocytes % 0.2 0.0 - 1.0 % 08/02/2024 5:22 PM [facility] Neutrophil Absolute 5.70 1.60 - 7.50 x10E9/L 08/02/2024 5:22 PM [facility] Lymphocyte Absolute 1.86 1.00 - 4.40 x10E9/L 08/02/2024 5:22 PM [facility] Monocyte Absolute 0.57 0.15 - 1.00 x10E9/L 08/02/2024 5:22 PM [facility] Eosinophil Absolute 0.19 0.00 - 0.60 x10E9/L 08/02/2024 5:22 PM [facility] Basophil Absolute 0.03 0.00 - 0.13 x10E9/L 08/02/2024 5:22 PM [facility] Blood BLOOD SPECIMEN / Unknown Venipuncture / Unknown 08/02/2024 5:08 PM HOSTLER HELPER 08/02/2024 5:14 PM HOSTLER HELPER Elmo Johnson MD LAB - HEMATOLOGY ORD ERABLES [facility] [address] [place] [address], [facility] [phone] * (ABNORMAL) COMPREHENSIVE METABOLIC PANEL (08/02/2024 5:08 PM HOSTLER HELPER) Only the most recent of6 resultswithin the time period is included. BUN 14 7 - 26 mg/dL 08/02/2024 5:44 PM [facility] Creatinine 0.57(L) 0.71 - 1.16 mg/dL 08/02/2024 5:44 PM [facility] Sodium 140 136 - 145 mmol/L 08/02/2024 5:44 PM [facility] Potassium 4.5 3.5 - 4.5 mmol/L 08/02/2024 5:44 PM [facility] Chloride 105 98 - 107 mmol/L 08/02/2024 5:44 PM [facility] CO2 25 22 - 29 mmol/L 08/02/2024 5:44 PM [facility] Glucose 102(H) 70 - 99 mg/dL 08/02/2024 5:44 PM [facility] Calcium 9.6 8.4 - 10.2 mg/dL 08/02/2024 5:44 PM [facility] Protein Total 7.6 6.0 - 8.3 g/dL 08/02/2024 5:44 PM [facility] Albumin 3.8 3.4 - 5.0 g/dL 08/02/2024 5:44 PM [facility] Bilirubin Total 0.4 0.2 - 1.2 mg/dL 08/02/2024 5:44 PM [facility] Alkaline Phosphatase 94 40 - 150 U/L 08/02/2024 5:44 PM [facility] ALT 14 5 - 55 U/L 08/02/2024 5:44 PM [facility] AST 25 5 - 34 U/L 08/02/2024 5:44 PM [facility] Anion Gap 10 6 - 16 08/02/2024 5:44 PM [facility] BUN/Creatinine Ratio 25(H) 7 - 23 08/02/2024 5:44 PM [facility] Osmolality Calculated 291 275 - 295 mOsm/kg 08/02/2024 5:44 PM [facility] Albumin/Globulin Ratio 1.0(L) 1.1 - 2.3 08/02/2024 5:44 PM [facility] eGFR by CKD-EPI >90 >=90 mL/min/1.7 3 m2 08/02/2024 5:44 PM [facility] Blood BLOOD SPECIMEN / Unknown Venipuncture / Unknown 08/02/2024 5:08 PM HOSTLER HELPER 08/02/2024 5:14 PM [facility] Elmo Johnson MD LAB - CHEMISTRY MARSHAL [facility] Organization Address City/State/ZIP Co de Phone Number [facility] [address] [place] [phone], [facility] [phone] * LIPASE BLOOD (08/02/2024 5:08 PM HOSTLER HELPER) Only the most recent of5 resultswithin the time period is included. Lipase 18 8 - 78 U/L 08/02/2024 5:44 PM [facility] Blood BLOOD SPECIMEN / Unknown Venipuncture / Unknown 08/02/2024 5:08 PM HOSTLER HELPER 08/02/2024 5:14 PM HOSTLER HELPER Narrative [facility] - 08/02/2024 5:44 PM HOSTLER HELPER Lipase results from the [employer] Alinity analyzer may not be comparable with other methodologies. Elmo Johnson MD LAB - CHEMISTRY MARSHAL JOSE ALBERTOSHILPA Performing Organization Address [facility] Co de Phone Number [address] [address], [facility] [phone] * TROPONIN-I HIGH SENSITIVE BASELINE + 1HR (07/27/2024 6:26 PM HOSTLER HELPER) Only the most recent of2 resultswithin the time period is included. [facility] Troponin I High Sensitive 5 <=35 ng/L 07/27/2024 7:09 PM HOSTLER HELPER [facility] Blood BLOOD SPECIMEN / Unknown Venipuncture / Unknown 07/27/2024 6:26 PM HOSTLER HELPER 07/27/2024 6:37 PM HOSTLER HELPER Serjio Vilchis MD LAB - CHEMISTRY MARSHAL MEDEROS Performing Organization Address [facility] Co de Phone Number [address] [address], [facility] [phone] * EKG 12-LEAD (07/27/2024 5:34 PM HOSTLER HELPER) [facility] Ventricular Rate 84 BPM [facility] MUSE Atrial Rate 84 BPM [facility] MUSE P-R Interval 160 ms [facility] MUSE QRS Duration ms 76 ms [facility] Q-T Interval ms 364 ms [facility] MUSE QTC Calculation (Bezet) 430 ms SL MUSE Calculated P [place] 49 degrees SL MUSE Calculated R [place] -25 degrees SL MUSE Calculated T [place] 56 degrees [facility] MUSE Interpretation EKG NORMAL SINUS RHYTHM SEPTAL INFARCT , AGE UNDETERMINED INFERIOR INFARCT , AGE UNDETERMINED ABNORMAL ECG WHEN COMPARED WITH ECG OF 19-FEB-2024 17:27, SEPTAL INFARCT IS NOW PRESENT INFERIOR INFARCT IS NOW PRESENT Confirmed by MD ABENA, CLEMENTE ([id number]) on 07/30/2024 2:44:30 PM [facility] MUSE 07/27/2024 5:34 PM HOSTLER HELPER 07/30/2024 2:44 PM HOSTLER HELPER Serjio Vilchis MD ECG ORDERABLES [facility] MUSE * PATHOLOGY TISSUE (07/18/2024 4:27 PM [facility]) Case Report Surgical Pathology Report Case: [id number] Authorizing Provider: Clifton Trinh, Collected: 07/18/2024 04:27 PM Ordering Location: [facility] ENDOSCOPY Received: 07/19/2024 10:00 AM Pathologist: Mara Pascual MD Specimen: Gastric, Gastric Antrum Biopsies 07/20/2024 3:51 PM [facility] PATHOLOGY LAB Final Diagnosis Stomach, antrum, biopsy (A): - Superficial erosion in a background of reactive gastropathy, SEE COMMENT 07/20/2024 3:51 PM [facility] PATH[facility]Y [facility] Microscopic Description and Comment The [...] true H. pylori infection. 07/20/2024 3:51 PM [facility] PATHOLOGY LAB Clinical History The patient is a 64-year-old man with suspected upper gastrointestinal bleeding and melena. Operative procedure/findings: EGD - small esophageal diverticulum; benign-appearing intrinsic stenosis at the proximal and distal esophagus, dilated; broad irregular area of mucosa along the lesser curvature with superficial erosion, biopsied 07/20/2024 3:51 PM [facility] PATH[facility]Y LAB Gross Description The requisition and specimen(s) are identified with the patient's name, Bi Tabor. Received in formalin, specimen A , are four marie-pink tissue fragments, 0.1-0.3 cm, 0.4 x 0.3 x 0.1 cm in aggregate , submitted in toto in cassette A1. The two smallest fragments are friable and may not survive processing. IKD 07/20/2024 3:51 PM [facility] PATH[facility]Y LAB Pathologist Location at [facility] 07/20/2024 3:51 PM [facility] PATH[facility] Disclaimer The performance characteristics of [...] the attending (teaching) pathologist. 07/20/2024 3:51 PM [facility] PATH[facility] Embedded Images 07/20/2024 3:51 PM [facility] PATH[facility] Biopsy, NOS GASTRIC CONTENTS SPECIMEN / Unknown 07/18/2024 4:27 PM HOSTLER HELPER 07/19/2024 10:00 AM HOSTLER HELPER Comment:Pre-op diagnosis: Coffee ground emesis [K92.0] Clifton Alejandra MD LAB - PATHOL OGY/CYTOLOGY ORDERABLES [facility] PATHOLOGY LAB [address] [phone] * EGD (07/18/2024 3:52 PM HOSTLER HELPER) Report Endoscopy POC Endoscopy Department Report __ [...] entire procedure. Procedure Code(s): --- Professional --- 24879, Esophagogastroduode noscopy, flexible, transoral; with biopsy, single or multiple Diagnosis Code(s): --- Professional --- K31.89, Other diseases of stomach and duodenum K92.1, Melena (includes Hematochezia) CPT copyright 2021 [employer]. All rights reserved. The codes documented in this report are preliminary and upon medical billing coder review may be revised to meet current compliance requirements. Clifton Alejandra MD 07/18/2024 4:45:03 PM Note Initiated On: 07/18/2024 3:52 PM Number of Addenda: 0 [facility] [address] [place] [id number] [place] [address] PROVATION 07/18/2024 3:52 PM HOSTLER HELPER Aaron Delgado III, MD GI PROCEDURE OR DERABLES [facility] PROVATION * PHOSPHORUS BLOOD (07/18/2024 8:07 AM HOSTLER HELPER) Only the most recent of2 resultswithin the time period is included. Phosphorus 4.2 2.8 - 5.1 mg/dL 07/18/2024 8:52 AM [facility] Blood BLOOD SPECIMEN / Unknown Lab Venipuncture / Unknown 07/18/2024 8:07 AM HOSTLER HELPER 07/18/2024 8:24 AM HOSTLER HELPER Marianne Daniels MD LAB - CHEMISTRY MARSHAL MEDEROS [facility] [address] [place] [phone], [facility] [phone] * VALPROIC ACID LEVEL (07/18/2024 8:07 AM HOSTLER HELPER) Pathologist [facility] Valproic Acid Total 74 50 - 100 ug/mL 07/18/2024 8:41 AM HOSTLER HELPER [facility] Blood BLOOD SPECIMEN / Unknown Lab Venipuncture / Unknown 07/18/2024 8:07 AM HOSTLER HELPER 07/18/2024 8:19 AM HOSTLER HELPER Marianne Daniels MD LAB - CHEMISTRY MARSHAL MEDEROS Performing Organization Address City/[facility]/ZIP Co de Phone Number [address] [address], [facility] [phone] * CARDIAC EKG ORDER (07/17/2024 1:44 PM HOSTLER HELPER) Narrative 07/17/2024 1:44 PM HOSTLER HELPER Ordered by an unspecified provider. Scanned Document CARDIAC SERVICES ORD ERABLES * (ABNORMAL) URINE MICROSCOPIC ONLY REFLEX TO CULTURE (07/17/2024 9:58 AM HOSTLER HELPER) Pathologist [facility] Reflex Status Culture to follow 07/17/2024 10:42 AM [facility] WBC UA 21-50(A) None Seen, 0-5 /HPF 07/17/2024 10:42 AM [facility] Bacteria UA 1+(A) None /HPF 07/17/2024 10:42 AM [facility] Squamous Epithelial Cells UA None Seen None Seen, 0-2, 3-5 /HPF 07/17/2024 10:42 AM [facility] Urine URINE SPECIMEN OBTAINED BY CLEAN CATCH PROCEDURE / Unknown Collection / Unknown 07/17/2024 9:58 AM HOSTLER HELPER 07/17/2024 10:02 AM [facility] - 07/17/2024 10:42 AM HOSTLER HELPER Quan Gan MD LAB - URINALYSIS ORD ERABLES [address] [address], [facility] [phone] * (ABNORMAL) URINALYSIS REFLEX MICROSCOPIC REFLEX CULTURE (07/17/2024 9:58 AM HOSTLER HELPER) Only the most recent of2 resultswithin the time period is included. Color UA Yellow Straw, Yellow 07/17/2024 10:36 AM [facility] Clarity UA Slt Cloudy(A) Clear 07/17/2024 10:36 AM [facility] Specific [place] UA 1.027 1.005 - 1.030 07/17/2024 10:36 AM [facility] pH UA 8.0 5.0 - 8.0 pH 07/17/2024 10:36 AM [facility] Protein UA 1+(A) Negative 07/17/2024 10:36 AM [facility] Glucose UA Negative Negative 07/17/2024 10:36 AM [facility] Ketone UA Negative Negative 07/17/2024 10:36 AM [facility] Bilirubin UA Negative Negative 07/17/2024 10:36 AM [facility] Blood UA Negative Negative 07/17/2024 10:36 AM [facility] Nitrite UA Positive(A) Negative 07/17/2024 10:36 AM [facility] Leukocyte Esterase 1+(A) Negative 07/17/2024 10:36 AM [facility] Urobilinogen UA 4.0(A) Negative mg/dL 07/17/2024 10:36 AM [facility] Urine URINE SPECIMEN OBTAINED BY CLEAN CATCH PROCEDURE / Unknown Collection / Unknown 07/17/2024 9:58 AM HOSTLER HELPER 07/17/2024 10:02 AM HOSTLER HELPER Narrative [facility] - 07/17/2024 10:36 AM HOSTLER HELPER Quan Gan MD LAB - URINALYSIS ORD ERABLES [facility] [address] [place] [address], [facility] [phone] * TROPONIN-I HIGH SENSITIVE REFLEX 1HOUR (07/17/2024 12:03 AM HOSTLER HELPER) Pathologist [facility] Troponin I High Sensitive 7 <=35 ng/L 07/17/2024 12:48 AM HOSTLER HELPER [facility] Delta Troponin I HS 0 <6 ng/L 07/17/2024 12:48 AM [facility] Blood BLOOD SPECIMEN / Unknown Venipuncture / Unknown 07/17/2024 12:03 AM HOSTLER HELPER 07/17/2024 12:11 AM HOSTLER HELPER Quan Gan MD LAB - CHEMISTRY ORDE RABLES [facility] [address] [place] [address], [facility] [phone] * SARS-COV-2 (COVID-19) FLU A/B RSV PCR RAPID (07/17/2024 12:03 AM HOSTLER HELPER) Pathologist [facility] [place] COVID-19 PCR Not detected Not detected 07/17/19 12:51 AM [facility] Influenza A PCR Not detected Not detected 07/17/2024 12:51 AM [facility] Influenza B PCR Not detected Not detected 07/17/2024 12:51 AM [facility] RSV PCR Not detected Not detected 07/17/2024 12:51 AM [facility] Microbiology SPECIMEN FROM NASOPHARYNGEAL STRUCTURE / Unknown Collection / Unknown 07/17/2024 12:03 AM HOSTLER HELPER 07/17/2024 12:11 AM HOSTLER HELPER Narrative [facility] - 07/17/2024 12:51 AM HOSTLER HELPER This nucleic acid amplification assay has been [...] Gan MD LAB - MICROBIOLOGY O RDERABLES [facility] [address] [place] [address], [facility] [phone] * CT Abdomen Pelvis W Contrast (07/16/2024 11:41 PM HOSTLER HELPER) Anatomical Region Laterality Modality Abdomen, Pelvis Computed Tomogra phy 07/17/2024 12:0 2 AM HOSTLER HELPER Impressions 07/17/2024 8:29 AM HOSTLER HELPER Impression: 1.No acute process identified in the [...] obstruction. > Dictated by Ashu Welch MD (sales vice president). I, Bebo Kuo MD have personally reviewed and interpreted this examination/study. > Interpreting Provider: Bebo Kuo MD on 07/17/2024 8:29 AM Narrative 07/17/2024 8:29 AM HOSTLER HELPER PROCEDURE: CT ABDOMEN PELVIS W CONTRAST, DATE/TIME OF EXAM: 07/16/2024 11:42 PM, LOCATION [facility] INDICATION: R11.2: Nausea and vomiting, unspecified [...] DATE/TIME OF EXAM: 07/16/2024 11:42 PM, LOCATION [facility] INDICATION: R11.2: Nausea and vomiting, unspecified [...] obstruction. > Dictated by Ashu Welch MD (sales vice president). I, Bebo Kuo MD have personally reviewed and interpreted this examination/study. > Interpreting Provider: Bebo Kuo MD on 58:29 AM Quan Gan MD CT ORDERABLES * LACTIC ACID BLOOD REFLEX TO REPEAT (07/16/2024 10:44 PM HOSTLER HELPER) Lactic Acid-Stat 1.9 <=2.0 mmol/L 07/16/2024 11:19 PM HOSTLER HELPER [facility] Blood BLOOD SPECIMEN / Unknown Venipuncture / Unknown 07/16/2024 10:44 PM HOSTLER HELPER 07/16/2024 10:52 PM HOSTLER HELPER Quan Gan MD LAB - CHEMISTRY MARSHAL MEDEROS [facility] Organization Address City/State/[facility] Co de Phone Number [address] [address], [facility] [phone] * CK BLOOD (07/16/2024 10:44 PM HOSTLER HELPER) CK Total 92 30 - 200 U/L 07/16/2024 11:23 PM HOSTLER HELPER [facility] Blood BLOOD SPECIMEN / Unknown Venipuncture / Unknown 07/16/2024 10:44 PM HOSTLER HELPER 07/16/2024 10:52 PM HOSTLER HELPER Quan Gan MD LAB - CHEMISTRY ORDE RABLES [facility] [address] [place] [address], [facility] [phone] * (ABNORMAL) BASIC METABOLIC PANEL (CALCIUM TOTAL) (06/08/2024 4:11 AM [facility]) BUN 14 7 - 26 mg/dL 06/08/2024 4:58 AM [facility] Creatinine 0.57(L) 0.71 - 1.16 mg/dL 06/08/2024 4:58 AM [facility] Sodium 140 136 - 145 mmol/L 06/08/2024 4:58 AM [facility] Potassium 3.9 3.5 - 4.5 mmol/L 06/08/2024 4:58 AM [facility] Chloride 108(H) 98 - 107 mmol/L 06/08/2024 4:58 AM [facility] CO2 27 22 - 29 mmol/L 06/08/2024 4:58 AM [facility] Glucose 105(H) 70 - 99 mg/dL 06/08/2024 4:58 AM [facility] Calcium 9.3 8.4 - 10.2 mg/dL 06/08/2024 4:58 AM [facility] Anion Gap 5(L) 6 - 16 06/08/2024 4:58 AM [facility] BUN/Creatinine Ratio 25(H) 7 - 23 06/08/2024 4:58 AM [facility] Osmolality Calculated 291 275 - 295 mOsm/kg 06/08/2024 4:58 AM [facility] eGFR by CKD-EPI >90 >=90 mL/min/1.7 3 m2 06/08/2024 4:58 AM [facility] Blood BLOOD SPECIMEN / Unknown Venipuncture / Unknown 06/08/2024 4:11 AM [facility] 06/08/2024 4:18 AM [facility] Lilliam Isaacs CELLULAR BIOLOGIST-[employer] [facility] - CHEMISTRY ORDERABLES [facility] [address] [place] [id number] [phone] * (ABNORMAL) LIPID PROFILE (06/08/2024 4:11 AM [facility]) Cholesterol Total 136 <200 mg/dL 06/08/2024 4:49 AM [facility] HDL 35(L) >40 mg/dL 06/08/2024 4:49 AM [facility] Comment: ATP III Classification of HDL Cholesterol: <40 mg/dL: Considered a major risk factor. >60 mg/dL: Considered a negative risk factor. LDL Calculated 88 <100 mg/dL 06/08/2024 4:49 AM [facility] Comment: ATP III Classification of LDL Cholesterol: <100 mg/dL: Optimal 100 - 129 mg/dL: Near Optimal/Above Optimal 130 - 159 mg/dL: Borderline High 160 - 189 mg/dL: High >190 mg/dL: Very High Triglycerides 65 <150 mg/dL 06/08/2024 4:49 AM [facility] Comment: ATP III Classification of Triglycerides: <150 mg/dL: Normal 150 - 199 mg/dL: Borderline High 200 - 400 mg/dL: High >500 mg/dL: Very High Blood BLOOD SPECIMEN / Unknown Venipuncture / Unknown 06/08/2024 4:11 AM [facility] 06/08/2024 4:18 AM [facility] Lilliam Isaacs CELLULAR BIOLOGIST-[employer] [facility] - CHEMISTRY ORDERABLES [facility] [address] [place] [id number], [facility] [phone] * HEPATITIS C AB SCREEN RFLX NAAT [...] - CHEMISTRY MARSHAL MEDEROS Performing Organization Address City/[facility]/ZIP Co de Phone Number [facility] [facility] [address] [place] [id number], [place] [phone] * HIV-1 HIV-2 ANTIBODY + HIV P24 AG PANEL (09/01/2022 2:05 AM CDT) HIV Antigen/Antibod y 1 & 2 Non-reacti ve Non-react phan 09/01/2022 3:09 AM CDT [facility] Comment:No Laboratory eviden ce of HIV infection. Blood BLOOD SPECIMEN / Unknown Venipuncture / Unknown 09/01/2022 2:05 AM CDT 09/01/2022 2:15 AM CDT Artemio Abarca MD LAB - CHEMISTRY MARSHAL MEDEROS Performing Organization Address 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 Source: [facility]. 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 John Seipel Infection Prevention 09/18/2022 MRSA 06/11/2023 06/11/2023 Advance Directives Documents on File Type Date Recorded Patient Quality Assurance Lab Technician Expl anation Adv Directive/Living Will/POA 07/19/2019 4:10 [...] 10:09 PM 09/09/2023 7:47 PM Care Teams Shipping Room Helper Relationship Specialty Start Date End Date Dany Monsivais MD [address] [id number] PCP - General Family Medicine 11/18/23 Elizabeth Sullivan, RN Stud Setter 10/14/17
--- OUTSIDE RECORDS SUMMARY | 2024-08-20 00:54 | XMS_ITS | Encounter Summary ---
Author Organization [facility] Address [address] [place] [address] Care Team Providers Care Machine Rebuilder Name Role Phone Frank Toure MD Unavailable Joyce Luevano NP Primary Care Provider Unavaila Marielena Adame MD Primary Care Provider [phone] Encounter Details Date Type Department Care Team (Late st Contact Info) Description 07/06/2022 MyCCampus Quadt Message Enc [facility] Family Medicine - [address] [address] Joyce Luevano, SAS DEVELOPER Bi [employer]abor Social History Tobacco Use [...] Coronavirus/COVID-19? No / Unsure 06/17/2022 10:38 AM CUT OFF [employer] documented as of this encounter Functional Status [...] 1:34 PM CST Please see note. Thanks OFF [employer] * Yonatan Rodriguez RN - 07/07/2022 8:09 AM CST Please see note. Thanks OFF [employer] documented in this encounter Plan of Treatment Not on file documented as of this encounter Visit Diagnoses Not on filedocumented in this encounter Care Teams Machine Rebuilder Relationship Specialty Start Date End Date Joyce Luevano NP [address] [place] [address] PCP - General NURSE PRACTITIONER 01/14/20 10/26/23 Marielena Smallwood MD [address] [place] [id number] PCP - General FAMILY PRACTICE 10/27/23 [place] [address] [place] [id number] [employer] Salvage Determiner CARDIOVASCULAR DISEASE 05/30/16 documented as of this encounter
--- OUTSIDE RECORDS SUMMARY | 2024-08-20 00:54 | XMS_ITS | Encounter Summary ---
Author Organization [facility] Address [address] [place] [address] Care Team Providers Care B And B Gang Worker Name Role Phone Frank Toure MD Unavailable Joyce Luevano NP Primary Care Provider Unavaila Marielena Adame MD Primary Care Provider [phone] Encounter Details Date Type Department Care Team (Late st Contact Info) Description 02/23/2022 MyCPeopleclick Authoriat Message Enc [facility] Family Medicine - [address] [address] Joyce Luevano, MINING MANAGER Bi Tabor toenail Social History Tobacco Use [...] 7:31 AM CDT See below. * Yonatan Rodrigeuz RN - 02/23/2022 10:25 AM CDT Please see attachment. 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
--- OUTSIDE RECORDS SUMMARY | 2024-08-20 00:54 | XMS_ITS | Clinical Summary ---
Author Organization [facility] Address [address] [place] [address] Care Team Providers Care Tobacco Drummer Name Role Phone Frank Toure MD Unavailable Marielena Smallwood MD Primary Care Provider [phone] Allergies Active Allergy Reactions Criticality Noted Date Comments Clonazepam Hallucinations Medium 12/09/2021 hallucinations Medications vitamin B-1 100 MG TabIndications:Seiz ure ([facility]) Take 1 tablet (100 mg total) [...] x 7.5 MG/0.1ML Liquid Therapy PackIndications:Tara llanes ([facility]) 2 sprays by Nasal route as needed. [...] No evidence of infection Urine cultures from [facility] last month were negative growth as [...] infection. Antibiotics not indicated Osteoporosis 11/22/2018 Seizure ([facility]) 08/25/2017 Cerebrovascular accident (CV A) due to thrombosis of right posterior cerebral artery ([facility]) 02/20/2016 Assessment & Plan (11/29/2018 9:36 PM CDT): Patient has residual cognitive difficulties I think beyond with patient and her family have recognized in the past however as noted in adequate medication intake her side effects may be causing deterioration. Hypertension 07/24/2015 Hyperlipidemia 04/14/2015 Assessment & Plan (11/29/2018 9:36 PM CDT): Continue home meds and monitor Seizure ([facility]) 04/11/2015 Assessment & Plan (11/29/2018 9:39 PM CDT): History of generalized seizure disorder and being managed by a neurologist in [facility] however there is confusion from family about dosages of his medications because he is got multiple pill bottles at home. Verification of levetiracetam dose per neurologist noted Encounters Date Type Department Care Team Description 08/14/2024 MyChart Message Enc [facility] Family Medicine [address] [address] Marielena Smallwood MD Use of [...] Comments Blood Pressure 128/72 06/17/2022 10:46 AM WIND PROJECTS SUPERVISOR Pulse 95 06/17/2022 10:46 AM WIND PROJECTS SUPERVISOR Temperature 36.4 C (97.6 F) 06/07/2022 12:31 PM WIND PROJECTS SUPERVISOR Respiratory Rate 18 06/17/2022 10:4 6 AM WIND PROJECTS SUPERVISOR Oxygen Saturation 98% 06/17/2022 10: 46 AM WIND PROJECTS SUPERVISOR Inhaled Oxygen Concentration - - Weight 59 kg (130 lb) 06/17/2022 10:46 AM WIND PROJECTS SUPERVISOR stated - unable to weigh Height 180.3 cm (5' 11 ) 06/17/2022 10: 46 AM WIND PROJECTS SUPERVISOR Body Mass Index 18.13 06/17/2022 10:46 AM WIND PROJECTS SUPERVISOR Plan of Treatment Health Maintenance Due Date Last Done Comments Annual Physical 01/27/1963 Zoster Vaccines (1 of 2) 2011 RSV Immunization or 60+ Years (1 - Risk 60-74 years 1-dose series) 2021 COVID-19 Vaccine ( - season) 2024 04/06/2021, 07/02/2020, 06/11/2020 Influenza Adult (#1) 2024 02/01/2022, 03/16/2021, 03/07/2020, Additional history exists PHQ-2 (Physician [place]) 05/30/2024 Colorectal Cancer Screening Colonoscopy (10 Years) [...] HEPATITIS C ANTIBODY Routine 06/23/2016 11:13 AM WIND PROJECTS SUPERVISOR from Last 3 Months or Most Recently [...] * HEPATITIS C ANTIBODY (06/23/2016 11:13 AM WIND PROJECTS SUPERVISOR) HEPATITIS C AB NON-REACTIVE [place] [address] NR [facility] TO EPIC CONVERSION 06/23/2016 11:1 3 AM WIND PROJECTS SUPERVISOR 06/23/2016 11:13 AM WIND PROJECTS SUPERVISOR Narrative [facility] TO EPIC CONVERSION - 06/24/2016 6:41 PM WIND PROJECTS SUPERVISOR Result Communication: No patient communication needed at this time us Misael Maradiaga DO LABORATORY Final Result [facility] TO EPIC CONVERSION from Last 3 Months or Most Recently Relevant to Health Maintenance Insurance [employer] Advance Directives Documents on File Type Date Recorded Patient Merchandise Flow Associate Expl anation Advance Directives and Living Will 10/17/2017 SADVANCE DIRECTIVES * Full Code (Latest Code Status on File) Date Activated Date Inactivated Comments 12/04/2018 1:44 PM 12/12/2018 3:19 PM * Full Code Date Activated Date Inactivated Comments 11/29/2018 6:21 PM 12/04/2018 1:38 PM Care Teams Tobacco Drummer Relationship Specialty Start Date End Date Marielena Smallwood MD [address] [place] [phone] PCP - General FAMILY PRACTICE 10/27/23 Frank Toure MD [address] [place] [id number] Chivo Cnc Programmer CARDIOVASCULAR DISEASE 05/30/16
--- OUTSIDE RECORDS SUMMARY | 2024-08-20 00:54 | XMS_ITS | Referral Summary ---
Author Organization [facility] Address [address] [place] [address] Care Team Providers Care Pharmacy Delivery Driver Name Role Phone Marielena Smallwood MD Primary Care Provider Encounters Date Type Department Care Team Description 07/09/2024 7:23 PM INSURANCE VERIFICATION REPRESENTATIVE - 07/09/2024 11:59 PM INSURANCE VERIFICATION REPRESENTATIVE Hospital Encounter AMBULANCE BILLING [address] [place] [address] Discharge Disposition: Discharge to home or self care 07/08/2024 7:52 PM INSURANCE VERIFICATION REPRESENTATIVE - 07/09/2024 7:48 AM INSURANCE VERIFICATION REPRESENTATIVE Emergency [facility] Emergency Department [address] [place] [id number] Tri Martinez MD Thomas, Cherie Edwards MD Tracheostomy complication, unspecified complication type (HCC) (Primary Dx); Balanitis Discharge Disposition: Discharge to home or self care 06/12/2024 10:26 AM INSURANCE VERIFICATION REPRESENTATIVE - 06/28/2024 5:25 PM INSURANCE VERIFICATION REPRESENTATIVE Hospital Encounter [address] [phone] Shakila Jung MD Choi, Cheuk Ho Jeffrey, [...] 06/28/19 Active cloBAZam (ONFI) 2.5 mg/mL suspensionIndicati 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 Monitor with q4 accuchecks and SSI. Hypophosphatemia 06/27/2024 Assessment & Plan (06/28/2024 11:44 AM INSURANCE VERIFICATION REPRESENTATIVE): <0.7 ? 2/2 refeeding syndrome. Started on neutraphos 2pkg QID 06/26. Still Phos<0.7 06/27. Tx with IV NaPhos 30mmoles and cont per tube replacement and monitor closely. -06/28: Phos=3.3, reduce nuetraphos to 1 PKG BID and monitor History of DVT (deep vein thrombosis) 06/26/2024 Assessment & Plan (06/26/2024 1:32 PM INSURANCE VERIFICATION REPRESENTATIVE): -On anticoagulation with Eliquis 5 mg po BID for hx of DVT -per chart review hx of Left Subclavian vein DVT diagnosed 08/01/23 H/O: GI bleed 06/25/2024 Assessment & Plan (06/26/2024 1:32 PM INSURANCE VERIFICATION REPRESENTATIVE): - [facility] ( 06-07-24 [...] 06/25/2024 Assessment & Plan (06/26/2024 1:36 PM INSURANCE VERIFICATION REPRESENTATIVE): Tracheostomy dependence, has a Shiley #4 cuffed. Pt followed at [facility], per notes trach in place for pulmonary toilet due to his copious secretions and ongoing aspiration of his secretions. -needing frequent suctioning -sats stable on 28% FIO2 by [facility] -Was getting VEST at [facility] Low grade fever 06/20/2024 Assessment & Plan (06/26/2024 1:34 PM INSURANCE VERIFICATION REPRESENTATIVE): Low-grade fever and tachycardia, softer BP after [...] 06/17/2024 Assessment & Plan (06/28/2024 11:43 AM INSURANCE VERIFICATION REPRESENTATIVE): -patient at admission with a G tube, was getting continous tube feedings at [facility] and not tolerating, -was changed to bolus [...] 12/14/22 (additional documented GJ tube procedures at [facility] most recent 09/09/23). Pt ' feeding tube fell off and pt had 19 Citizen [place] G tube placed at [facility] ED on 04/21/24 (records on care everywhere)and after that he has not tolerated well tube feedings per discussion with his sister Ms Hilliard,Adriane [phone] POA - consulted IR 06-20-24 for conversion [...] goal 06/25, adjust FWF per hydration status, bmx rider to follow up -On full TF's-osmolite 1.5. Phos repleted. Copious oral secretions 06/13/2024 Assessment & Plan (06/26/2024 1:29 PM INSURANCE VERIFICATION REPRESENTATIVE): Patient on chronic glycopyrrolate due to secretions, held at admission 07/01 to potential for constipation with plan to add back when he's had a bowel movements -resume on 06-19- hold on 06-20 due to somnolence. Suction PRN - restart glycopyrrolate 1mg BID 06/26 and monitor Abdominal pain 06/12/2024 Assessment & Plan (06/26/2024 1:23 PM INSURANCE VERIFICATION REPRESENTATIVE): -p/w abdominal distention from SNF to ED on 06-12 ,reported biliary emesis per jail (approximately 300 cc) , not associated fevers or change in bowel habits. Feeding tube placed to gravity drainage in ED H&P notes regular bowel movements. CT scan on 06-12 in ED with stool in the rectum and sigmoid. [place] likely constipation contributing to the patient's abdominal [...] 06/12/2024 Assessment & Plan (06/26/2024 12:08 AM INSURANCE VERIFICATION REPRESENTATIVE): Complicated by left LE AKA. History of CVA (cerebrovascular accident) 2020 Assessment & Plan (06/26/2024 1:32 PM INSURANCE VERIFICATION REPRESENTATIVE): - hx of RT parietal CVA- hx of dementia Cont asa and statin Essential hypertension 12/11/2020 Assessment & Plan (06/26/2024 1:30 PM INSURANCE VERIFICATION REPRESENTATIVE): - on metoprolol and norvasc, held with soft BP 06-19 - resume metoprolol 06-21 -resume amlodipine 06-22 - Monitor Hyperlipidemia 12/11/2020 Assessment & Plan (06/12/2024 3:47 PM INSURANCE VERIFICATION REPRESENTATIVE): - Continue home statin Seizure 12/10/2020 Assessment & Plan (06/26/2024 1:36 PM INSURANCE VERIFICATION REPRESENTATIVE): History of seizure disorder secondary to traumatic brain injury. Currently on valproate, Vimpat, Keppra and Cobazam - Continue home medication, valproate level low at admit 48 on 06-12, 48 on 06-13, Valproic acid level 76 06-19 prior to dose, lacosamide level 1.4 on 06/12, 9.6 on 06-19 Followed by Neurology at [facility] Cognitive communication deficit 08/25/2020 Cerebrovascular accident 06/13/2019 [...] Smokeless Tobacco: Current Tobacco Cessation:Counseling Given: Yes [facility] Utilities Answer Date Recorded In the past 12 months has [employer] electric, gas, oil, or water company threatened [...] often do you attend chur ch or anglican services? Never 06/18/2024 Do you belong to [...] any time in the past 12 [facility], were you homeless or living in a prison (including now)? No 06/18/2024 Personal Safety Answer Date Recorded Have you ever been in or are you currently in a harmful physical or emotional relationship or is someone making you feel afraid or unsafe? Denies 07/08/2024 Sex and Gender Information Value Date Recorded Sex Assigned at Not on file Legal Sex Male 6:11 AM INSURANCE VERIFICATION REPRESENTATIVE Gender Identity Not on file Sexual Orientation Not on file Last Filed Vital Signs Vital Sign Reading Time Taken Comments Blood Pressure 145/83 07/09/2024 6:00 AM INSURANCE VERIFICATION REPRESENTATIVE Pulse 91 07/09/2024 6:00 AM INSURANCE VERIFICATION REPRESENTATIVE Temperature 36.5 C (97.7 F) 07/09/2024 6:31 AM INSURANCE VERIFICATION REPRESENTATIVE Respiratory Rate 10 07/09/2024 6:00 AM INSURANCE VERIFICATION REPRESENTATIVE Oxygen Saturation 100% 07/09/2024 6:00 AM INSURANCE VERIFICATION REPRESENTATIVE Inhaled Oxygen Concentration - - Weight 79.8 kg (176 lb) 07/09/2024 2:16 AM INSURANCE VERIFICATION REPRESENTATIVE Height 182.9 cm (6') 07/09/2024 2:16 AM INSURANCE VERIFICATION REPRESENTATIVE Body Mass Index 23.87 07/09/2024 2:16 AM INSURANCE VERIFICATION REPRESENTATIVE Plan of Treatment Not on file Procedures Procedure Name Priority Date/Time Associated Diagnosis Comments POCT RAPID HIV ANTIBODY COMMUNITY SCREENING-ISSA ELIGIBLE STAT 07/09/2024 5:32 AM INSURANCE VERIFICATION REPRESENTATIVE SEPSIS LACTATE WITH REFLEX Timed 07/09/2024 4:33 AM INSURANCE VERIFICATION REPRESENTATIVE ED PERIPHERAL LINE INSERTION Routine 07/09/2024 1:18 AM INSURANCE VERIFICATION REPRESENTATIVE SEPSIS LACTATE WITH REFLEX Timed 07/09/2024 1:15 AM INSURANCE VERIFICATION REPRESENTATIVE RPR STAT 07/09/2024 1:15 AM INSURANCE VERIFICATION REPRESENTATIVE N. GONORRHOEAE/C. TRACHOMATIS AMPLIFICATION STAT 07/09/2024 1:02 AM INSURANCE VERIFICATION REPRESENTATIVE URINALYSIS AND REFLEX TO MICROSCOPIC AND CULTURE STAT 07/09/2024 1:02 AM INSURANCE VERIFICATION REPRESENTATIVE ED PERIPHERAL LINE INSERTION Routine 07/08/2024 10:11 PM INSURANCE VERIFICATION REPRESENTATIVE CT CHEST ABDOMEN PELVIS W CONTRAST ED 07/08/2024 9:55 PM INSURANCE VERIFICATION REPRESENTATIVE EGFR STAT 07/08/2024 8:56 PM INSURANCE VERIFICATION REPRESENTATIVE DIFFERENTIAL AUTO STAT 07/08/2024 8:5 6 PM INSURANCE VERIFICATION REPRESENTATIVE SEPSIS LACTATE WITH REFLEX STAT 07/08/2024 8:56 PM INSURANCE VERIFICATION REPRESENTATIVE LIPASE STAT 07/08/2024 8:56 PM INSURANCE VERIFICATION REPRESENTATIVE COMPREHENSIVE METABOLIC PANEL STAT 07/08/2024 8:56 PM INSURANCE VERIFICATION REPRESENTATIVE CBC WITH AUTO DIFFERENTIAL STAT 07/08/2024 8:56 PM INSURANCE VERIFICATION REPRESENTATIVE RESPIRATORY PATHOGEN PANEL STAT 07/08/2024 8:56 PM INSURANCE VERIFICATION REPRESENTATIVE ECG 12-LEAD Routine 07/08/2024 8:28 PM INSURANCE VERIFICATION REPRESENTATIVE XR CHEST 1 VIEW ED 07/08/2024 8:18 PM INSURANCE VERIFICATION REPRESENTATIVE POCT GLUCOSE DEVICE Routine 06/28/2024 4 :24 PM INSURANCE VERIFICATION REPRESENTATIVE POCT GLUCOSE DEVICE Routine 06/28/2024 1 2:30 PM INSURANCE VERIFICATION REPRESENTATIVE POCT GLUCOSE DEVICE Routine 06/28/2024 7 :43 AM INSURANCE VERIFICATION REPRESENTATIVE POCT GLUCOSE DEVICE Routine 06/28/2024 4 :01 AM INSURANCE VERIFICATION REPRESENTATIVE POCT GLUCOSE DEVICE Routine 06/27/2024 1 1:28 PM INSURANCE VERIFICATION REPRESENTATIVE EGFR Routine 06/27/2024 9:30 PM INSURANCE VERIFICATION REPRESENTATIVE PHOSPHORUS Routine 06/27/2024 9:30 PM INSURANCE VERIFICATION REPRESENTATIVE MAGNESIUM Routine 06/27/2024 9:30 PM INSURANCE VERIFICATION REPRESENTATIVE BASIC METABOLIC PANEL Routine 06/27/2024 9:30 PM INSURANCE VERIFICATION REPRESENTATIVE POCT GLUCOSE DEVICE Routine 06/27/2024 8 :39 PM INSURANCE VERIFICATION REPRESENTATIVE POCT GLUCOSE DEVICE Routine 06/27/2024 5 :10 PM INSURANCE VERIFICATION REPRESENTATIVE POCT GLUCOSE DEVICE Routine 06/27/2024 4 :27 PM INSURANCE VERIFICATION REPRESENTATIVE POCT GLUCOSE DEVICE Routine 06/27/2024 1 :06 PM INSURANCE VERIFICATION REPRESENTATIVE POCT GLUCOSE DEVICE Routine 06/27/2024 9 :59 AM INSURANCE VERIFICATION REPRESENTATIVE EGFR Routine 06/26/2024 10:21 PM INSURANCE VERIFICATION REPRESENTATIVE DIFFERENTIAL AUTO Routine 06/26/2024 10: 21 PM INSURANCE VERIFICATION REPRESENTATIVE PHOSPHORUS Routine 06/26/2024 10:21 PM INSURANCE VERIFICATION REPRESENTATIVE MAGNESIUM Routine 06/26/2024 10:21 PM INSURANCE VERIFICATION REPRESENTATIVE CBC WITH AUTO DIFFERENTIAL Routine 06/26/2024 10:21 PM INSURANCE VERIFICATION REPRESENTATIVE BASIC METABOLIC PANEL Routine 06/26/2024 10:21 PM INSURANCE VERIFICATION REPRESENTATIVE HEPATITIS B SURFACE ANTIGEN Routine 06/26/2024 10:21 PM INSURANCE VERIFICATION REPRESENTATIVE PHOSPHORUS Routine 06/26/2024 3:21 PM INSURANCE VERIFICATION REPRESENTATIVE RPR Routine 06/26/2024 3:21 PM INSURANCE VERIFICATION REPRESENTATIVE HEPATITIS C ANTIBODY Routine 06/26/2024 3:21 PM INSURANCE VERIFICATION REPRESENTATIVE HIV 1/2 ANTIBODY PLUS P24 ANTIGEN Routine 06/26/2024 3:21 PM INSURANCE VERIFICATION REPRESENTATIVE EGFR Routine 06/26/2024 12:16 AM INSURANCE VERIFICATION REPRESENTATIVE PHOSPHORUS Routine 06/26/2024 12:16 AM INSURANCE VERIFICATION REPRESENTATIVE MAGNESIUM Routine 06/26/2024 12:16 AM INSURANCE VERIFICATION REPRESENTATIVE BASIC METABOLIC PANEL Routine 06/26/2024 12:16 AM INSURANCE VERIFICATION REPRESENTATIVE POCT GLUCOSE DEVICE Routine 06/23/2024 1 1:36 AM INSURANCE VERIFICATION REPRESENTATIVE CBC WITHOUT DIFFERENTIAL Timed 06/23/2024 9:07 AM INSURANCE VERIFICATION REPRESENTATIVE VANCOMYCIN LEVEL TROUGH Routine 06/23/2024 9:00 AM INSURANCE VERIFICATION REPRESENTATIVE EGFR Routine 06/23/2024 9:00 AM INSURANCE VERIFICATION REPRESENTATIVE MAGNESIUM Routine 06/23/2024 9:00 AM INSURANCE VERIFICATION REPRESENTATIVE PHOSPHORUS Routine 06/23/2024 9:00 AM INSURANCE VERIFICATION REPRESENTATIVE BASIC METABOLIC PANEL Routine 06/23/2024 9:00 AM INSURANCE VERIFICATION REPRESENTATIVE G TO GJ-TUBE REPLACEMENT IP Routine 06/22/2024 1:24 PM INSURANCE VERIFICATION REPRESENTATIVE C. DIFFICILE TESTING Routine 06/21/2024 11:11 AM INSURANCE VERIFICATION REPRESENTATIVE INFECTION PREVENTION VRE CULTURE Routine 06/21/2024 11:10 AM INSURANCE VERIFICATION REPRESENTATIVE VANCOMYCIN LEVEL TROUGH Timed 06/21/2024 7:16 AM INSURANCE VERIFICATION REPRESENTATIVE EGFR Routine 06/21/2024 5:03 AM INSURANCE VERIFICATION REPRESENTATIVE DIFFERENTIAL AUTO Routine 06/21/2024 5:0 3 AM INSURANCE VERIFICATION REPRESENTATIVE PHOSPHORUS Timed 06/21/2024 5:03 AM INSURANCE VERIFICATION REPRESENTATIVE MAGNESIUM Routine 06/21/2024 5:03 AM INSURANCE VERIFICATION REPRESENTATIVE COMPREHENSIVE METABOLIC PANEL Routine 06/21/2024 5:03 AM INSURANCE VERIFICATION REPRESENTATIVE CBC WITH AUTO DIFFERENTIAL Routine 06/21/2024 5:03 AM INSURANCE VERIFICATION REPRESENTATIVE MSSA/MRSA (STAPHYLOCOCCUS AUREUS) CULTURE Routine 06/20/2024 10:30 PM INSURANCE VERIFICATION REPRESENTATIVE XR ABDOMEN AP 1 VIEW IP Routine 06/20/2024 10:29 AM INSURANCE VERIFICATION REPRESENTATIVE URINALYSIS, MICROSCOPIC ONLY Routine 06/19/2024 9:34 PM INSURANCE VERIFICATION REPRESENTATIVE URINALYSIS AND REFLEX TO MICROSCOPIC AND CULTURE Routine 06/19/2024 9:34 PM INSURANCE VERIFICATION REPRESENTATIVE DIFFERENTIAL AUTO Routine 06/19/2024 9:2 8 PM INSURANCE VERIFICATION REPRESENTATIVE CBC WITH AUTO DIFFERENTIAL Routine 06/19/2024 9:28 PM INSURANCE VERIFICATION REPRESENTATIVE VALPROIC ACID LEVEL, TOTAL Timed 06/19/2024 9:28 PM INSURANCE VERIFICATION REPRESENTATIVE LACOSAMIDE Routine 06/19/2024 9:28 PM INSURANCE VERIFICATION REPRESENTATIVE RESPIRATORY PATHOGEN PANEL Routine 06/19/2024 9:10 PM INSURANCE VERIFICATION REPRESENTATIVE AEROBIC CULTURE AND GRAM STAIN Routine 06/19/2024 6:53 PM INSURANCE VERIFICATION REPRESENTATIVE XR CHEST 1 VIEW IP Routine 06/19/2024 6:47 PM INSURANCE VERIFICATION REPRESENTATIVE RESPIRATORY PATHOGEN PANEL Routine 06/19/2024 6:46 PM INSURANCE VERIFICATION REPRESENTATIVE XR ABDOMEN AP 1 VIEW IP Routine 06/19/2024 4:09 PM INSURANCE VERIFICATION REPRESENTATIVE XR CHEST 1 VIEW IP Routine 06/19/2024 4:08 PM INSURANCE VERIFICATION REPRESENTATIVE EGFR Timed 06/19/2024 2:47 PM INSURANCE VERIFICATION REPRESENTATIVE DIFFERENTIAL AUTO Timed 06/19/2024 2:4 7 PM INSURANCE VERIFICATION REPRESENTATIVE PHOSPHORUS Timed 06/19/2024 2:47 PM INSURANCE VERIFICATION REPRESENTATIVE MAGNESIUM Timed 06/19/2024 2:47 PM INSURANCE VERIFICATION REPRESENTATIVE COMPREHENSIVE METABOLIC PANEL Timed 06/19/2024 2:47 PM INSURANCE VERIFICATION REPRESENTATIVE CBC WITH AUTO DIFFERENTIAL Timed 06/19/2024 2:47 PM INSURANCE VERIFICATION REPRESENTATIVE POCT GLUCOSE DEVICE Routine 06/19/2024 2 :25 PM INSURANCE VERIFICATION REPRESENTATIVE XR ABDOMEN AP 1 VIEW IP Routine 06/16/2024 6:16 PM INSURANCE VERIFICATION REPRESENTATIVE EGFR Routine 06/16/2024 12:42 PM INSURANCE VERIFICATION REPRESENTATIVE DIFFERENTIAL AUTO Routine 06/16/2024 12: 42 PM INSURANCE VERIFICATION REPRESENTATIVE PHOSPHORUS Routine 06/16/2024 12:42 PM INSURANCE VERIFICATION REPRESENTATIVE MAGNESIUM Routine 06/16/2024 12:42 PM INSURANCE VERIFICATION REPRESENTATIVE COMPREHENSIVE METABOLIC PANEL Routine 06/16/2024 12:42 PM INSURANCE VERIFICATION REPRESENTATIVE CBC WITH AUTO DIFFERENTIAL Routine 06/16/2024 12:42 PM INSURANCE VERIFICATION REPRESENTATIVE XR ABDOMEN AP 1 VIEW ED Urgent/IP Urgent 06/15/2024 1:57 AM INSURANCE VERIFICATION REPRESENTATIVE EGFR Routine 06/13/2024 4:59 AM INSURANCE VERIFICATION REPRESENTATIVE DIFFERENTIAL AUTO Routine 06/13/2024 4: 59 AM INSURANCE VERIFICATION REPRESENTATIVE VALPROIC ACID LEVEL, TOTAL Routine 06/13/2024 4:59 AM INSURANCE VERIFICATION REPRESENTATIVE CBC WITH AUTO DIFFERENTIAL Routine 06/13/2024 4:59 AM INSURANCE VERIFICATION REPRESENTATIVE PHOSPHORUS Routine 06/13/2024 4:59 AM INSURANCE VERIFICATION REPRESENTATIVE MAGNESIUM Routine 06/13/2024 4:59 AM INSURANCE VERIFICATION REPRESENTATIVE COMPREHENSIVE METABOLIC PANEL Routine 06/13/2024 4:59 AM INSURANCE VERIFICATION REPRESENTATIVE LACOSAMIDE Routine 06/13/2024 4:59 AM INSURANCE VERIFICATION REPRESENTATIVE BLOOD CULTURE Routine 06/13/2024 4:59 AM INSURANCE VERIFICATION REPRESENTATIVE TSH Routine 06/12/2024 3:51 PM INSURANCE VERIFICATION REPRESENTATIVE DIFFERENTIAL AUTO Routine 06/12/2024 3:3 0 PM INSURANCE VERIFICATION REPRESENTATIVE CBC WITH AUTO DIFFERENTIAL Routine 06/12/2024 3:30 PM INSURANCE VERIFICATION REPRESENTATIVE HEMOGLOBIN A1C Routine 06/12/2024 3:30 PM INSURANCE VERIFICATION REPRESENTATIVE TROPONIN I HIGH-SENSITIVITY 4-HOUR Timed 06/12/2024 3:27 PM INSURANCE VERIFICATION REPRESENTATIVE XR CHEST 1 VIEW ED 06/12/2024 2:47 PM INSURANCE VERIFICATION REPRESENTATIVE URINALYSIS AND REFLEX TO MICROSCOPIC AND CULTURE STAT 06/12/2024 2:38 PM INSURANCE VERIFICATION REPRESENTATIVE DIFFERENTIAL AUTO STAT 06/12/2024 2:2 3 PM INSURANCE VERIFICATION REPRESENTATIVE CBC WITH AUTO DIFFERENTIAL STAT 06/12/2024 2:23 PM INSURANCE VERIFICATION REPRESENTATIVE TROPONIN I HIGH-SENSITIVITY 2-HOUR Timed 06/12/2024 1:56 PM INSURANCE VERIFICATION REPRESENTATIVE CT ABDOMEN PELVIS W CONTRAST ED 06/12/2024 12:22 PM INSURANCE VERIFICATION REPRESENTATIVE ED PERIPHERAL LINE INSERTION Routine 06/12/2024 11:50 AM INSURANCE VERIFICATION REPRESENTATIVE INFLUENZA A/B, RSV, AND COVID-19 PCR Routine 06/12/2024 11:39 AM INSURANCE VERIFICATION REPRESENTATIVE POCT CREATININE - DEVICE Routine 06/12/2024 11:29 AM INSURANCE VERIFICATION REPRESENTATIVE EGFR STAT 06/12/2024 11:22 AM INSURANCE VERIFICATION REPRESENTATIVE DIFFERENTIAL AUTO STAT 06/12/2024 11: 22 AM INSURANCE VERIFICATION REPRESENTATIVE TROPONIN I HIGH-SENSITIVITY SERIES (BASELINE, 2HR, 4HR, 6HR) STAT 06/12/2024 11:22 AM INSURANCE VERIFICATION REPRESENTATIVE LIPASE STAT 06/12/2024 11:22 AM INSURANCE VERIFICATION REPRESENTATIVE CBC WITH AUTO DIFFERENTIAL STAT 06/12/2024 11:22 AM INSURANCE VERIFICATION REPRESENTATIVE COMPREHENSIVE METABOLIC PANEL STAT 06/12/2024 11:22 AM INSURANCE VERIFICATION REPRESENTATIVE VALPROIC ACID LEVEL, TOTAL STAT 06/12/2024 11:22 AM INSURANCE VERIFICATION REPRESENTATIVE ECG 12-LEAD Routine 06/12/2024 11:01 AM INSURANCE VERIFICATION REPRESENTATIVE TNI WITH LIPID PANEL Routine 08/24/2017 4:57 PM CDT from Last 3 Months or Most Recently Relevant to Health Maintenance Results * POCT Rapid HIV Antibody Community Screening-Issa Eligible (07/09/2024 5:32 AM INSURANCE VERIFICATION REPRESENTATIVE) Rapid HIV, POC Negative Negative Lot Number [id number] QC Control Line Acceptable Blood 07/09/2024 5:32 AM INSURANCE VERIFICATION REPRESENTATIVE Naa Tam MD POINT OF CARE TEST ORDER NICHOLE Final Result * Sepsis Lactate w/ Reflex (07/09/2024 4:33 AM INSURANCE VERIFICATION REPRESENTATIVE) Pathologist [facility] Sepsis Lactate 2.0 0.7 - 2.0 mmol/L Blood 07/09/2024 4:33 AM INSURANCE VERIFICATION REPRESENTATIVE 07/09/2024 4:42 AM INSURANCE VERIFICATION REPRESENTATIVE Naa Tam MD LAB BLOOD ORDERABLES Fin al Result [facility] Department [place] [address] * ED PERIPHERAL LINE INSERTION (07/09/2024 1:18 AM INSURANCE VERIFICATION REPRESENTATIVE) Narrative Cherie Damian MD - 07/09/2024 1:18 AM INSURANCE VERIFICATION REPRESENTATIVE Atul Barba MD 07/09/2024 1:18 AM Peripheral [...] Sepsis Lactate w/ Reflex (07/09/2024 1:15 AM INSURANCE VERIFICATION REPRESENTATIVE) [facility] Sepsis Lactate 2.8(H) 0.7 - 2.0 mmol/L Blood 07/09/2024 1:15 AM INSURANCE VERIFICATION REPRESENTATIVE 07/09/2024 1:46 AM INSURANCE VERIFICATION REPRESENTATIVE Naa Tam MD LAB BLOOD ORDERABLES Fin al Result Performing Organization Address [facility]/ZIP Co de Phone Number [facility] Department [place] [address] * RPR Blood (07/09/2024 1:15 AM INSURANCE VERIFICATION REPRESENTATIVE) [facility] RPR Nonreactive Nonreactive Blood 07/09/2024 1:15 AM INSURANCE VERIFICATION REPRESENTATIVE 07/09/2024 1:40 AM INSURANCE VERIFICATION REPRESENTATIVE Result [facility] Naa Tam MD LAB MICROBIOLOGY - GENER AL ORDERABLES Final Result Performing Organization Address [facility] de Phone Number [facility] [place] [address] * N. gonorrhoeae/C. trachomatis Amplification Urine (07/09/2024 1:02 AM INSURANCE VERIFICATION REPRESENTATIVE) [facility] C. trachomatis Not Detected Not Detected [facility] N. gonorrhoeae Not Detected Not Detected [facility] Comment: Interpretive Data This assay detects Chlamydia trachomatis and Neisseria gonorrhoeae by nucleic acid amplification testing (NAAT). This assay has been cleared by the [place] Food and Drug administration. The performance characteristics of this test have been verified by the [facility] Molecular Infectious Disease laboratory. The performance characteristics of this test have not been evaluated in individuals less than 14 years of age. Current Interpretive Data last revised 2023. Urine (None) 07/09/2024 1:02 AM INSURANCE VERIFICATION REPRESENTATIVE 07/09/2024 1:35 AM INSURANCE VERIFICATION REPRESENTATIVE us Naa Tam MD LAB MICROBIOLOGY - GENER AL ORDERABLES Final Result Performing Organization Address City/[facility]/ZIP Co de Phone Number [facility] [place] [address] [facility] * (ABNORMAL) Urinalysis reflex to microscopic and culture Urine, clean voided (07/09/2024 1:02 AM INSURANCE VERIFICATION REPRESENTATIVE) Color, ur Straw Yellow Clarity, ur Clear Clear [facility] Specific gravity, ur >1.042(H) 1.003 - 1.030 [facility] pH, urine 7.5 [facility] Comment: Interpretive Data U rine pH is affected by diet, medications, systemic acid-base disturbances, and renal tubular function. pH may affect urinary stone formation. For example, urine pH below 6.0 may help reduce the tendency for calcium phosphate stones and pH greater than 6.0 may reduce the tendency for uric acid stone formation. Source: [facility] Current Interpretive Data was last revised on 2017 Protein, ur ql Trace Negative [facility] Glucose, ur ql Negative Negative [facility] Ketones, ur Negative Negative [facility] Bilirubin, ur Negative Negative [facility] Blood, ur Negative Negative [facility] Urobilinogen, ur <2.0 <2.0 mg/dL [facility] Nitrite, ur Negative Negative [facility] Leukocyte esterase, ur Negative Negative [facility] UA reflex comment Reflex conditions for microscopic UA and culture not met. [facility] Urine, clean voided 07/09/2024 1:02 AM INSURANCE VERIFICATION REPRESENTATIVE 07/09/2024 1:15 AM INSURANCE VERIFICATION REPRESENTATIVE us Naa Tam MD LAB MICROBIOLOGY - GENER AL ORDERABLES Final Result Performing Organization Address [facility] Co de Phone Number [facility] [place] [address] * ED PERIPHERAL LINE INSERTION (07/08/2024 10:11 PM INSURANCE VERIFICATION REPRESENTATIVE) Narrative Tri Martinez MD - 07/08/2024 10:11 PM INSURANCE VERIFICATION REPRESENTATIVE Atul Barba MD 07/08/2024 10:12 PM Peripheral [...] Abdomen Pelvis W Contrast (07/08/2024 9:55 PM INSURANCE VERIFICATION REPRESENTATIVE) Anatomical Region Laterality Modality Body N/A Computed Tomogra phy 07/08/2024 10:3 2 PM INSURANCE VERIFICATION REPRESENTATIVE Impressions 07/09/2024 7:23 AM INSURANCE VERIFICATION REPRESENTATIVE Liquid stool within the colon, indicative of diarrheal state. Otherwise, no acute abnormalities in the abdomen or pelvis. Dictated by: Delia Morton MD The radiology attending physician has personally reviewed this study, and had reviewed and/or edited this written report and agrees with it. Electronically signed by: Marlon Kohler M.D. Narrative 07/09/2024 7:23 AM INSURANCE VERIFICATION REPRESENTATIVE EXAMINATION: Computed tomography of the chest, abdomen [...] Sepsis Lactate w/ Reflex (07/08/2024 8:56 PM INSURANCE VERIFICATION REPRESENTATIVE) [facility] Sepsis Lactate 2.4(H) 0.7 - 2.0 mmol/L Blood 07/08/2024 8:56 PM INSURANCE VERIFICATION REPRESENTATIVE 07/08/2024 9:24 PM INSURANCE VERIFICATION REPRESENTATIVE us Naa Tam MD LAB BLOOD ORDERABLES Fin al Result [facility] Department of Laboratories [place], [place] [id number] * eGFR (07/08/2024 8:56 PM INSURANCE VERIFICATION REPRESENTATIVE) [facility] eGFR >90 >=60 mL/min/1. 73 [...] last reviewed 2021. Blood 07/08/2024 8:56 PM INSURANCE VERIFICATION REPRESENTATIVE 07/08/2024 9:26 PM INSURANCE VERIFICATION REPRESENTATIVE us Naa Tam MD LAB BLOOD ORDERABLES Fin al Result [facility] Department [place] [address] * Differential, auto (07/08/2024 8:56 PM INSURANCE VERIFICATION REPRESENTATIVE) Neutrophil abs 4.4 1.5 - 6.5 K/cumm Imm gran abs 0.0 0.0 - 0.1 K/cumm [facility] Lymphocyte abs 2.6 0.8 - 3.3 K/cumm [facility] Monocyte abs 0.5 0.2 - 0.8 K/cumm [facility] Eosinophil abs 0.5 0.0 - 0.5 K/cumm [facility] Basophil abs 0.0 0.0 - 0.1 K/cumm [facility] Neutrophil pct 54.7 % [facility] Comment: Interpretive Data Percent cell count reference ranges are not reported, since discordance with absolute values may lead to misinterpretation of CBC data. Current Interpretive Data was last revised on 2017. Imm gran pct 0.2 % [facility] Comment: Interpretive Data Percent cell count reference ranges are not reported, since discordance with absolute values may lead to misinterpretation of CBC data. Current Interpretive Data was last revised on 2017. Lymphocyte pct 32.1 % [facility] Comment: Interpretive Data Percent cell count reference ranges are not reported, since discordance with absolute values may lead to misinterpretation of CBC data. Current Interpretive Data was last revised on 2017. Monocyte pct 6.6 % [facility] Comment: Interpretive Data Percent cell count reference ranges are not reported, since discordance with absolute values may lead to misinterpretation of CBC data. Current Interpretive Data was last revised on 2017. Eosinophil pct 6.0 % [facility] Comment: Interpretive Data Percent cell count reference ranges are not reported, since discordance with absolute values may lead to misinterpretation of CBC data. Current Interpretive Data was last revised on 2017. Basophil pct 0.4 % [facility] Comment: Interpretive Data Percent cell count reference ranges are not reported, since discordance with absolute values may lead to misinterpretation of CBC data. Current Interpretive Data was last revised on 2017. Blood 07/08/2024 8:56 PM INSURANCE VERIFICATION REPRESENTATIVE 07/08/2024 9:27 PM INSURANCE VERIFICATION REPRESENTATIVE us Naa Tam MD LAB BLOOD ORDERABLES Fin al Result [facility] Department [place] [address] * Respiratory pathogen panel Nasopharyngeal (07/08/2024 8:56 PM INSURANCE VERIFICATION REPRESENTATIVE) Pathologist [facility] Influenza A RNA Not Detected Not Detected Influenza B RNA Not Detected Not Detected [facility] RSV RNA Not Detected Not Detected [facility] COVID-19 RNA Not Detected Not Detected [facility] Coronavirus 229E RNA Not Detected Not Detected [facility] Coronavirus HKU1 RNA Not Detected Not Detected [facility] Coronavirus NL63 RNA Not Detected Not Detected [facility] Coronavirus OC43 RNA Not Detected Not Detected [facility] Adenovirus DNA Not Detected Not Detected [facility] Metapneumovirus RNA Not Detected Not Detected [facility] Rhinovirus/Enterov irus RNA Not Detected Not Detected [facility] Parainfluenza 1 RNA Not Detected Not Detected [facility] Parainfluenza 2 RNA Not Detected Not Detected [facility] Parainfluenza 3 RNA Not Detected Not Detected [facility] Parainfluenza 4 RNA Not Detected Not Detected [facility] B. pertussis DNA Not Detected Not Detected [facility] B. parapertussis DNA Not Detected Not Detected [facility] C. pneumoniae DNA Not Detected Not Detected [facility] M. pneumoniae DNA Not Detected Not Detected [facility] Nasopharyngeal 07/08/2024 8: 56 PM INSURANCE VERIFICATION REPRESENTATIVE 07/08/2024 9:25 PM INSURANCE VERIFICATION REPRESENTATIVE Narrative [facility] - 07/08/2024 10:16 PM INSURANCE VERIFICATION REPRESENTATIVE Is the Patient experiencing symptoms consistent with COVID?->Yes Surveillance testing for transplant patient?->No Interpretive Data The Genomic Expression FilmArray Respiratory Panel (RP2.1) assay is a [...] assay has FDA clearance for testing of FUR REPAIR INSPECTOR swabs. The performance of additional specimen types has been assessed by the performing laboratory. The performance characteristics of this assay have been determined by [facility] Infectious Disease [facility]. Current interpretive data was last revised on 22. us Naa Tam MD LAB MICROBIOLOGY - [facility] ORDERABLES Final Result [facility] Department [place] [address] * (ABNORMAL) CBC with auto differential (07/08/2024 8:56 PM INSURANCE VERIFICATION REPRESENTATIVE) Pathologist [facility] WBC 8.0 3.8 - 9.9 K/cumm Hgb 14.4 13.0 - 17.5 g/dL [facility] Hct 43.3 38.9 - 50.3 % [facility] Plt 236 150 - 400 K/cumm [facility] MPV 12.4(H) 9.1 - 12.3 fL [facility] RBC 4.49 4.30 - 5.80 M/cumm [facility] MCV 96.4 81.3 - 96.4 fL [facility] MCH 32.1 27.1 - 33.3 pg [facility] MCHC 33.3 32.3 - 35.7 g/dL [facility] RDW CV 13.5 11.1 - 14.9 % [facility] RDW SD 47.9 35.7 - 48.1 fL [facility] NRBC abs 0.00 0.00 - 0.01 K/cumm [facility] Blood 07/08/2024 8:56 PM INSURANCE VERIFICATION REPRESENTATIVE 07/08/2024 9:27 PM INSURANCE VERIFICATION REPRESENTATIVE Naa Tam MD LAB BLOOD ORDERABLES Fin al Result Performing Organization Address City/[facility]/ZIP Co de Phone Number [facility] Department [place] [address] * Lipase (07/08/2024 8:56 PM INSURANCE VERIFICATION REPRESENTATIVE) Pathologist [facility] Lipase 32 10 - 99 Units/L Blood 07/08/2024 8:56 PM INSURANCE VERIFICATION REPRESENTATIVE 07/08/2024 9:26 PM INSURANCE VERIFICATION REPRESENTATIVE us Naa Tam MD LAB BLOOD ORDERABLES Fin al Result Performing Organization Address [facility] de Phone Number [facility] Department [place] [address] * (ABNORMAL) Comprehensive metabolic panel (07/08/2024 8:56 PM INSURANCE VERIFICATION REPRESENTATIVE) [facility] Sodium 141 135 - 145 mmol/L Potassium, pl 4.5 3.3 - 4.9 mmol/L [facility] Chloride 102 97 - 110 mmol/L [facility] CO2 28 22 - 32 mmol/L [facility] Anion gap 11 2 - 15 mmol/L [facility] BUN 15 6 - 25 mg/dL [facility] Creatinine 0.63(L) 0.80 - 1.30 mg/dL [facility] Glucose 110 70 - 199 mg/dL [facility] Comment: Interpretive Data Fasting glucose >/= 126 [...] 2022. Calcium 10.1 8.5 - 10.3 mg/dL [facility] Bilirubin, total 0.2 0.1 - 1.2 mg/dL [facility] Protein, pl 8.0 6.5 - 8.5 g/dL [facility] Albumin 4.1 3.5 - 5.0 g/dL [facility] Alk phos 110 40 - 130 Units/L [facility] ALT 28 7 - 55 Units/L [facility] AST 26 10 - 50 Units/L [facility] Blood 07/08/2024 8:56 PM INSURANCE VERIFICATION REPRESENTATIVE 07/08/2024 9:26 PM INSURANCE VERIFICATION REPRESENTATIVE us Naa Tam MD LAB BLOOD ORDERABLES Fin al Result Performing Organization Address [facility] Co de Phone Number [facility] Department [place] [address] * ECG 12-LEAD (07/08/2024 8:28 PM INSURANCE VERIFICATION REPRESENTATIVE) Narrative [facility] - 07/08/2024 8:28 PM INSURANCE VERIFICATION REPRESENTATIVE Naa Tam MD 07/08/2024 8:30 PM ECG [...] ORDERABLES Final Re sult Performing Organization Address City/[facility]/ZIP Co de Phone Number [facility] * XR Chest 1 View (07/08/2024 8:18 PM INSURANCE VERIFICATION REPRESENTATIVE) Anatomical Region Laterality Modality Body, Chest N/A Computed Radiogr aphy 07/08/2024 8:28 PM INSURANCE VERIFICATION REPRESENTATIVE Impressions 07/08/2024 9:56 PM INSURANCE VERIFICATION REPRESENTATIVE Comparison is made to chest graft dated [...] Sekou Wolf M.D. Narrative 07/08/2024 9:56 PM INSURANCE VERIFICATION REPRESENTATIVE EXAMINATION: 1 view chest radiograph Procedure Note [...] Result * POCT glucose (06/28/2024 4:24 PM INSURANCE VERIFICATION REPRESENTATIVE) Glucose, POC 191 70 - 199 mg/dL Blood 06/28/2024 4:24 PM INSURANCE VERIFICATION REPRESENTATIVE 06/28/2024 4:24 PM INSURANCE VERIFICATION REPRESENTATIVE us Kami Dupont MD LAB POCT ORDERABLES - DEV ICE Final Result [facility] [place] [address] * POCT glucose (06/28/2024 12:30 PM INSURANCE VERIFICATION REPRESENTATIVE) Glucose, POC 197 70 - 199 mg/dL Blood 06/28/2024 12:3 0 PM INSURANCE VERIFICATION REPRESENTATIVE 06/28/2024 12:30 PM INSURANCE VERIFICATION REPRESENTATIVE Kami Dupont MD LAB POCT ORDERABLES - DEV ICE Final Result Performing Organization Address City/[facility] Co de Phone Number [facility] [place] [address] * POCT glucose (06/28/2024 7:43 AM INSURANCE VERIFICATION REPRESENTATIVE) Glucose, POC 191 70 - 199 mg/dL Blood 06/28/2024 7:43 AM INSURANCE VERIFICATION REPRESENTATIVE 06/28/2024 7:43 AM INSURANCE VERIFICATION REPRESENTATIVE Kami Dupont MD LAB POCT ORDERABLES - DEV ICE Final Result Performing Organization Address [facility] Co de Phone Number [facility] [place] [address] * POCT glucose (06/28/2024 4:01 AM INSURANCE VERIFICATION REPRESENTATIVE) Glucose, POC 173 70 - 199 mg/dL Blood 06/28/2024 4:01 AM INSURANCE VERIFICATION REPRESENTATIVE 06/28/2024 4:01 AM INSURANCE VERIFICATION REPRESENTATIVE Kami Dupont MD LAB POCT ORDERABLES - DEV ICE Final Result Performing Organization Address [facility] de Phone Number [facility] [place] [address] * (ABNORMAL) POCT glucose (06/27/2024 11:28 PM INSURANCE VERIFICATION REPRESENTATIVE) Glucose, POC 220(H) 70 - 199 mg/dL Comment:Use Protocol Glucose comment 1 Use Protocol [facility] Blood 06/27/2024 11:2 8 PM INSURANCE VERIFICATION REPRESENTATIVE 06/27/2024 11:28 PM INSURANCE VERIFICATION REPRESENTATIVE Kami Dupont MD LAB POCT ORDERABLES - DEV ICE Final Result Performing Organization Address [facility] Co de Phone Number [facility] [place] [address] * eGFR (06/27/2024 9:30 PM INSURANCE VERIFICATION REPRESENTATIVE) eGFR >90 >=60 mL/min/1. 73 m2 Comment: [...] last reviewed 2021. Blood 06/27/2024 9:30 PM INSURANCE VERIFICATION REPRESENTATIVE 06/27/2024 9:45 PM INSURANCE VERIFICATION REPRESENTATIVE Kami Dupont MD LAB BLOOD ORDERABLES Lulu l Result Performing Organization Address [facility]/ZIP Co de Phone Number [facility] [place] [address] * Phosphorus (06/27/2024 9:30 PM INSURANCE VERIFICATION REPRESENTATIVE) Phosphorus, pl 3.3 2.3 - 4.5 mg/dL Comment:Repeated and Verifie d Blood 06/27/2024 9:30 PM INSURANCE VERIFICATION REPRESENTATIVE 06/27/2024 9:45 PM INSURANCE VERIFICATION REPRESENTATIVE Kami Dupont MD LAB BLOOD ORDERABLES Lulu l Result Performing Organization Address City/[facility] Co de Phone Number [facility] [place] [address] * Magnesium (06/27/2024 9:30 PM INSURANCE VERIFICATION REPRESENTATIVE) Pathologist [facility] Magnesium 1.9 1.4 - 2.5 mg/dL Blood 06/27/2024 9:30 PM INSURANCE VERIFICATION REPRESENTATIVE 06/27/2024 9:45 PM INSURANCE VERIFICATION REPRESENTATIVE Kami Dupont MD LAB BLOOD ORDERABLES Lulu l Result Performing Organization Address [facility] de Phone Number [facility] [place] [address] * (ABNORMAL) Basic metabolic panel (06/27/2024 9:30 PM INSURANCE VERIFICATION REPRESENTATIVE) Pathologist [facility] Sodium 141 135 - 145 mmol/L Potassium, pl 4.4 3.3 - 4.9 mmol/L [facility] Chloride 105 97 - 110 mmol/L [facility] CO2 28 22 - 32 mmol/L [facility] Anion gap 8 2 - 15 mmol/L [facility] BUN 9 6 - 25 mg/dL [facility] Creatinine 0.47(L) 0.80 - 1.30 mg/dL [facility] Glucose 208(H) 70 - 199 mg/dL [facility] Comment: Interpretive Data Fasting glucose >/= 126 [...] 2022. Calcium 8.9 8.5 - 10.3 mg/dL [facility] Blood 06/27/2024 9:30 PM INSURANCE VERIFICATION REPRESENTATIVE 06/27/2024 9:45 PM INSURANCE VERIFICATION REPRESENTATIVE Kami Dupont MD LAB BLOOD ORDERABLES Lulu l Result Performing Organization Address City/[facility] Co de Phone Number [facility] [place] [address] * POCT glucose (06/27/2024 8:39 PM INSURANCE VERIFICATION REPRESENTATIVE) Glucose, POC 195 70 - 199 mg/dL Blood 06/27/2024 8:39 PM INSURANCE VERIFICATION REPRESENTATIVE 06/27/2024 8:39 PM INSURANCE VERIFICATION REPRESENTATIVE Kami Dupont MD LAB POCT ORDERABLES - DEV ICE Final Result Performing Organization Address [facility] Co de Phone Number [facility] [place] [address] * POCT glucose (06/27/2024 5:10 PM INSURANCE VERIFICATION REPRESENTATIVE) Glucose, POC 194 70 - 199 mg/dL Blood 06/27/2024 5:10 PM INSURANCE VERIFICATION REPRESENTATIVE 06/27/2024 5:10 PM INSURANCE VERIFICATION REPRESENTATIVE Kami Dupont MD LAB POCT ORDERABLES - DEV ICE Final Result Performing Organization Address [facility] Co de Phone Number [facility] [place] [address] * (ABNORMAL) POCT glucose (06/27/2024 4:27 PM INSURANCE VERIFICATION REPRESENTATIVE) Glucose, POC 224(H) 70 - 199 mg/dL Blood 06/27/2024 4:27 PM INSURANCE VERIFICATION REPRESENTATIVE 06/27/2024 4:27 PM INSURANCE VERIFICATION REPRESENTATIVE us Kami Dupont MD LAB POCT ORDERABLES - DEV ICE Final Result Performing Organization Address [facility] de Phone Number [facility] [place] [address] * POCT glucose (06/27/2024 1:06 PM INSURANCE VERIFICATION REPRESENTATIVE) Glucose, POC 173 70 - 199 mg/dL Blood 06/27/2024 1:06 PM INSURANCE VERIFICATION REPRESENTATIVE 06/27/2024 1:06 PM INSURANCE VERIFICATION REPRESENTATIVE Kami Dupont MD LAB POCT ORDERABLES - DEV ICE Final Result Performing Organization Address [facility] de Phone Number [facility] [place] [address] * POCT glucose (06/27/2024 9:59 AM INSURANCE VERIFICATION REPRESENTATIVE) Glucose, POC 158 70 - 199 mg/dL Blood 06/27/2024 9:59 AM INSURANCE VERIFICATION REPRESENTATIVE 06/27/2024 9:59 AM INSURANCE VERIFICATION REPRESENTATIVE Kami Dupont MD LAB POCT ORDERABLES - DEV ICE Final Result Performing Organization Address [facility] de Phone Number [facility] [place] [address] * eGFR (06/26/2024 10:21 PM INSURANCE VERIFICATION REPRESENTATIVE) eGFR >90 >=60 mL/min/1. 73 m2 Comment: [...] reviewed 2021. Blood 06/26/2024 10:2 1 PM INSURANCE VERIFICATION REPRESENTATIVE 06/26/2024 10:53 PM INSURANCE VERIFICATION REPRESENTATIVE us Kami Dupont MD LAB BLOOD ORDERABLES Lulu coley Result [facility] Department [place] [address] * Differential, auto (06/26/2024 10:21 PM INSURANCE VERIFICATION REPRESENTATIVE) Pathologist [facility] Neutrophil abs 5.0 1.5 - 6.5 K/cumm Imm gran abs 0.0 0.0 - 0.1 K/cumm [facility] Lymphocyte abs 2.4 0.8 - 3.3 K/cumm [facility] Monocyte abs 0.8 0.2 - 0.8 K/cumm [facility] Eosinophil abs 0.4 0.0 - 0.5 K/cumm [facility] Basophil abs 0.0 0.0 - 0.1 K/cumm [facility] Neutrophil pct 58.2 % [facility] Comment: Interpretive Data Percent cell count reference ranges are not reported, since discordance with absolute values may lead to misinterpretation of CBC data. Current Interpretive Data was last revised on 2017. Imm gran pct 0.3 % [facility] Comment: Interpretive Data Percent cell count reference ranges are not reported, since discordance with absolute values may lead to misinterpretation of CBC data. Current Interpretive Data was last revised on 2017. Lymphocyte pct 27.9 % [facility] Comment: Interpretive Data Percent cell count reference ranges are not reported, since discordance with absolute values may lead to misinterpretation of CBC data. Current Interpretive Data was last revised on 2017. Monocyte pct 9.2 % [facility] Comment: Interpretive Data Percent cell count reference ranges are not reported, since discordance with absolute values may lead to misinterpretation of CBC data. Current Interpretive Data was last revised on 2017. Eosinophil pct 4.1 % [facility] Comment: Interpretive Data Percent cell count reference ranges are not reported, since discordance with absolute values may lead to misinterpretation of CBC data. Current Interpretive Data was last revised on 2017. Basophil pct 0.3 % [facility] Comment: Interpretive Data Percent cell count reference ranges are not reported, since discordance with absolute values may lead to misinterpretation of CBC data. Current Interpretive Data was last revised on 2017. Blood 06/26/2024 10:2 1 PM INSURANCE VERIFICATION REPRESENTATIVE 06/26/2024 10:53 PM INSURANCE VERIFICATION REPRESENTATIVE us Kami Dupont MD LAB BLOOD ORDERABLES Lulu coley Result [facility] Department [place] [address] * (ABNORMAL) CBC with auto differential (06/26/2024 10:21 PM INSURANCE VERIFICATION REPRESENTATIVE) WBC 8.6 3.8 - 9.9 K/cumm Hgb 13.1 13.0 - 17.5 g/dL [facility] Hct 39.1 38.9 - 50.3 % [facility] Plt 173 150 - 400 K/cumm [facility] MPV 13.1(H) 9.1 - 12.3 fL [facility] RBC 4.07(L) 4.30 - 5.80 M/cumm [facility] MCV 96.1 81.3 - 96.4 fL [facility] MCH 32.2 27.1 - 33.3 pg [facility] MCHC 33.5 32.3 - 35.7 g/dL [facility] RDW CV 13.5 11.1 - 14.9 % [facility] RDW SD 47.8 35.7 - 48.1 fL [facility] NRBC abs 0.00 0.00 - 0.01 K/cumm [facility] Blood 06/26/2024 10:2 1 PM INSURANCE VERIFICATION REPRESENTATIVE 06/26/2024 10:53 PM INSURANCE VERIFICATION REPRESENTATIVE Kami Dupont MD LAB BLOOD ORDERABLES Lulu l Result Performing Organization Address [facility] de Phone Number [facility] [place] [address] * Hepatitis B Surface Antigen Blood (06/26/2024 10:21 PM INSURANCE VERIFICATION REPRESENTATIVE) Pathologist [facility] HepBsAg Nonreactive Nonreactive Blood 06/26/2024 10:2 1 PM INSURANCE VERIFICATION REPRESENTATIVE 06/26/2024 10:53 PM INSURANCE VERIFICATION REPRESENTATIVE Kami Dupont MD LAB MICROBIOLOGY - GENERA L ORDERABLES Final Result Performing Organization Address [facility] de Phone Number [facility] [place] [address] * (ABNORMAL) Phosphorus (06/26/2024 10:21 PM INSURANCE VERIFICATION REPRESENTATIVE) Pathologist [facility] Phosphorus, pl <0.7(L) 2.3 - 4.5 mg/dL Comment:Repeated and Verifie d Blood 06/26/2024 10:2 1 PM INSURANCE VERIFICATION REPRESENTATIVE 06/26/2024 10:53 PM INSURANCE VERIFICATION REPRESENTATIVE Kami Dupont MD LAB BLOOD ORDERABLES Lulu l Result Performing Organization Address [facility] de Phone Number [facility] [place] [address] * Magnesium (06/26/2024 10:21 PM INSURANCE VERIFICATION REPRESENTATIVE) Pathologist [facility] Magnesium 2.0 1.4 - 2.5 mg/dL Blood 06/26/2024 10:2 1 PM INSURANCE VERIFICATION REPRESENTATIVE 06/26/2024 10:53 PM INSURANCE VERIFICATION REPRESENTATIVE Kami Dupont MD LAB BLOOD ORDERABLES Lulu l Result Performing Organization Address City/[facility]/ZIP Co de Phone Number [facility] [place] [address] * (ABNORMAL) Basic metabolic panel (06/26/2024 10:21 PM INSURANCE VERIFICATION REPRESENTATIVE) [facility] Sodium 141 135 - 145 mmol/L Potassium, pl 4.7 3.3 - 4.9 mmol/L [facility] Chloride 106 97 - 110 mmol/L [facility] CO2 28 22 - 32 mmol/L [facility] Anion gap 7 2 - 15 mmol/L [facility] BUN 11 6 - 25 mg/dL [facility] Creatinine 0.47(L) 0.80 - 1.30 mg/dL [facility] Glucose 213(H) 70 - 199 mg/dL [facility] Comment: Interpretive Data Fasting glucose >/= 126 [...] 2022. Calcium 9.3 8.5 - 10.3 mg/dL [facility] Blood 06/26/2024 10:2 1 PM INSURANCE VERIFICATION REPRESENTATIVE 06/26/2024 10:53 PM INSURANCE VERIFICATION REPRESENTATIVE Kami Dupont MD LAB BLOOD ORDERABLES Lulu l Result Performing Organization Address [facility]/ZIP Co de Phone Number [facility] [place] [address] * HIV 1/2 Antibody plus p24 Antigen Blood (06/26/2024 3:21 PM INSURANCE VERIFICATION REPRESENTATIVE) HIV 1/2 ab + p24 ag Nonreactive Nonreactive Comment:Nonreactive for HIV- 1 antigen and HIV-1/HIV-2 antibodies. No laboratory evidence of HIV infection. If acute HIV infection is suspected, consider testing for HIV-1 RNA. Current interpretive data was last revised on 22. Blood 06/26/2024 3:21 PM INSURANCE VERIFICATION REPRESENTATIVE 06/26/2024 3:41 PM INSURANCE VERIFICATION REPRESENTATIVE Kami Dupont MD LAB MICROBIOLOGY - GENERA L ORDERABLES Final Result Performing Organization Address [facility] de Phone Number [facility] [place] [address] * Hepatitis C antibody Blood (06/26/2024 3:21 PM INSURANCE VERIFICATION REPRESENTATIVE) Pathologist [facility] Hep C Ab Nonreactive Nonreactive Comment:Antibodies to HCV no t detected. Does NOT exclude the possibility of recent exposure to HCV. Current interpretive data was last revised on 22 Blood 06/26/2024 3:21 PM INSURANCE VERIFICATION REPRESENTATIVE 06/26/2024 3:41 PM INSURANCE VERIFICATION REPRESENTATIVE Kami Dupont MD LAB MICROBIOLOGY - GENERA L ORDERABLES Final Result Performing Organization Address City/[facility] Co de Phone Number [facility] [place] [address] * RPR Blood (06/26/2024 3:21 PM INSURANCE VERIFICATION REPRESENTATIVE) Pathologist [facility] RPR Nonreactive Nonreactive Blood 06/26/2024 3:21 PM INSURANCE VERIFICATION REPRESENTATIVE 06/26/2024 3:41 PM INSURANCE VERIFICATION REPRESENTATIVE Kami Dupont MD LAB MICROBIOLOGY - GENERA L ORDERABLES Final Result Performing Organization Address [facility] [facility] de Phone Number [facility] [place] [address] * (ABNORMAL) Phosphorus (06/26/2024 3:21 PM INSURANCE VERIFICATION REPRESENTATIVE) Phosphorus, pl 0.7(L) 2.3 - 4.5 mg/dL Comment:Repeated and Verifie d Blood 06/26/2024 3:21 PM INSURANCE VERIFICATION REPRESENTATIVE 06/26/2024 3:41 PM INSURANCE VERIFICATION REPRESENTATIVE us Kami Dupont MD LAB BLOOD ORDERABLES Lulu l Result Performing Organization Address City/[facility]/ZIP Co de Phone Number [facility] [place] [address] * eGFR (06/26/2024 12:16 AM INSURANCE VERIFICATION REPRESENTATIVE) Pathologist [facility] eGFR >90 >=60 mL/min/1. 73 [...] reviewed 2021. Blood 06/26/2024 12:1 6 AM INSURANCE VERIFICATION REPRESENTATIVE 06/26/2024 12:39 AM INSURANCE VERIFICATION REPRESENTATIVE us Patricia Bryant MD LAB BLOOD ORDERABLES Final Res ult [facility] [place] [address] * (ABNORMAL) Phosphorus (06/26/2024 12:16 AM INSURANCE VERIFICATION REPRESENTATIVE) [facility] Phosphorus, pl <0.7(L) 2.3 - 4.5 mg/dL Comment:Repeated and Verifie d Blood 06/26/2024 12:1 6 AM INSURANCE VERIFICATION REPRESENTATIVE 06/26/2024 12:39 AM INSURANCE VERIFICATION REPRESENTATIVE Patricia Bryant MD LAB BLOOD ORDERABLES Final Res ult [facility] [place] [address] * Magnesium (06/26/2024 12:16 AM INSURANCE VERIFICATION REPRESENTATIVE) [facility] Magnesium 1.9 1.4 - 2.5 mg/dL Blood 06/26/2024 12:1 6 AM INSURANCE VERIFICATION REPRESENTATIVE 06/26/2024 12:39 AM INSURANCE VERIFICATION REPRESENTATIVE Patricia Bryant MD LAB BLOOD ORDERABLES Final Res ult [facility] [place] [address] * (ABNORMAL) Basic metabolic panel (06/26/2024 12:16 AM INSURANCE VERIFICATION REPRESENTATIVE) [facility] Sodium 142 135 - 145 mmol/L Potassium, pl 4.4 3.3 - 4.9 mmol/L [facility] Comment:Hemolyzed; Potassium value may be falsely elevated by as much as 0.3-0.5 mmol/L. Suggest redraw and reanalysis. Chloride 109 97 - 110 mmol/L [facility] CO2 29 22 - 32 mmol/L [facility] Anion gap 4 2 - 15 mmol/L [facility] BUN 13 6 - 25 mg/dL [facility] Creatinine 0.53(L) 0.80 - 1.30 mg/dL [facility] Glucose 177 70 - 199 mg/dL [facility] Comment: Interpretive Data Fasting glucose >/= 126 [...] 2022. Calcium 9.0 8.5 - 10.3 mg/dL [facility] Blood 06/26/2024 12:1 6 AM INSURANCE VERIFICATION REPRESENTATIVE 06/26/2024 12:39 AM INSURANCE VERIFICATION REPRESENTATIVE Patricia Bryant MD LAB BLOOD ORDERABLES Final Res ult Performing Organization Address [facility] Co de Phone Number [facility] Department [place] [address] * POCT glucose (06/23/2024 11:36 AM INSURANCE VERIFICATION REPRESENTATIVE) Pathologist [facility] Glucose, POC 95 70 - 199 mg/dL Blood 06/23/2024 11:3 6 AM INSURANCE VERIFICATION REPRESENTATIVE 06/23/2024 11:36 AM INSURANCE VERIFICATION REPRESENTATIVE Patricia Bryant MD LAB POCT ORDERABLES - DEVICE F inal Result Performing Organization Address [facility] Co de Phone Number [facility] [place] [address] * (ABNORMAL) CBC without differential (06/23/2024 9:07 AM INSURANCE VERIFICATION REPRESENTATIVE) [facility] WBC 4.7 3.8 - 9.9 K/cumm Hgb 12.5(L) 13.0 - 17.5 g/dL [facility] Hct 37.4(L) 38.9 - 50.3 % [facility] Plt 145(L) 150 - 400 K/cumm [facility] MPV 12.6(H) 9.1 - 12.3 fL [facility] RBC 3.94(L) 4.30 - 5.80 M/cumm [facility] MCV 94.9 81.3 - 96.4 fL [facility] MCH 31.7 27.1 - 33.3 pg [facility] MCHC 33.4 32.3 - 35.7 g/dL [facility] RDW CV 12.9 11.1 - 14.9 % [facility] RDW SD 45.1 35.7 - 48.1 fL [facility] NRBC abs 0.00 0.00 - 0.01 K/cumm [facility] Blood 06/23/2024 9:07 AM INSURANCE VERIFICATION REPRESENTATIVE 06/23/2024 9:28 AM INSURANCE VERIFICATION REPRESENTATIVE us Patricia Bryant MD LAB BLOOD ORDERABLES Final Res ult [facility] [place] [address] * eGFR (06/23/2024 9:00 AM INSURANCE VERIFICATION REPRESENTATIVE) eGFR >90 >=60 mL/min/1. 73 m2 Comment: [...] last reviewed 2021. Blood 06/23/2024 9:00 AM INSURANCE VERIFICATION REPRESENTATIVE 06/23/2024 10:59 AM INSURANCE VERIFICATION REPRESENTATIVE Result Rose Bryant MD LAB BLOOD ORDERABLES Final Res ult Performing Organization Address [facility] de Phone Number [facility] [place] [address] * Phosphorus (06/23/2024 9:00 AM INSURANCE VERIFICATION REPRESENTATIVE) Phosphorus, pl 2.3 2.3 - 4.5 mg/dL Blood 06/23/2024 9:00 AM INSURANCE VERIFICATION REPRESENTATIVE 06/23/2024 10:59 AM INSURANCE VERIFICATION REPRESENTATIVE Result Rose Bryant MD LAB BLOOD ORDERABLES Final Res ult Performing Organization Address [facility] de Phone Number [facility] [place] [address] * Magnesium (06/23/2024 9:00 AM INSURANCE VERIFICATION REPRESENTATIVE) Magnesium 1.7 1.4 - 2.5 mg/dL Blood 06/23/2024 9:00 AM INSURANCE VERIFICATION REPRESENTATIVE 06/23/2024 10:59 AM INSURANCE VERIFICATION REPRESENTATIVE Result Rose Bryant MD LAB BLOOD ORDERABLES Final Res ult Performing Organization Address [facility] [place] [address] * Vancomycin level trough (06/23/2024 9:00 AM INSURANCE VERIFICATION REPRESENTATIVE) Vancomycin trough 15.2 10.0 - 20.0 mcg/mL Blood 06/23/2024 9:00 AM INSURANCE VERIFICATION REPRESENTATIVE 06/23/2024 10:59 AM INSURANCE VERIFICATION REPRESENTATIVE Result Rose Bryant MD LAB BLOOD ORDERABLES Final Res ult Performing Organization Address City/[facility] Co de Phone Number [facility] [place] [address] * (ABNORMAL) Basic metabolic panel (06/23/2024 9:00 AM INSURANCE VERIFICATION REPRESENTATIVE) Sodium 143 135 - 145 mmol/L Potassium, pl 3.7 3.3 - 4.9 mmol/L [facility] Chloride 108 97 - 110 mmol/L [facility] CO2 28 22 - 32 mmol/L [facility] Anion gap 7 2 - 15 mmol/L [facility] BUN 3(L) 6 - 25 mg/dL [facility] Creatinine 0.50(L) 0.80 - 1.30 mg/dL [facility] Glucose 271(H) 70 - 199 mg/dL [facility] Comment: Interpretive Data Fasting glucose >/= 126 [...] 2022. Calcium 9.0 8.5 - 10.3 mg/dL [facility] Blood 06/23/2024 9:00 AM INSURANCE VERIFICATION REPRESENTATIVE 06/23/2024 10:59 AM INSURANCE VERIFICATION REPRESENTATIVE us Patricia Bryant MD LAB BLOOD ORDERABLES Final Res ult Performing Organization Address [facility]/ZIP Co de Phone Number [facility] Department [place] [address] * IR G To GJ-Tube Replacement (06/22/2024 1:24 PM INSURANCE VERIFICATION REPRESENTATIVE) Anatomical Region Laterality Modality Body N/A X-Ray Angiograph y 06/22/2024 1:47 PM INSURANCE VERIFICATION REPRESENTATIVE Impressions 06/22/2024 4:13 PM INSURANCE VERIFICATION REPRESENTATIVE Successful percutaneous 18 Fr 45 cm gastrojejunostomy [...] Sean Hillman M.D. Narrative 06/22/2024 4:13 PM INSURANCE VERIFICATION REPRESENTATIVE EXAMINATION: GASTROJEJUNOSTOMY TUBE EXCHANGE HISTORY/INDICATION: 64 yo [...] procedure. TECHNIQUE: Prior to beginning the procedure, Peggs Protocol was performed to confirm the patient's [...] the proximal jejunum. A 19 Citizen Of [place], 45 cm long JELLY single/double lumen gastrojejunostomy [...] procedure. TECHNIQUE: Prior to beginning the procedure, Peggs Protocol was performed to confirm the patient's [...] the proximal jejunum. A 19 Citizen Of [place], 45 cm long JELLY single/double lumen gastrojejunostomy [...] C. difficile testing Stool (06/21/2024 11:11 AM INSURANCE VERIFICATION REPRESENTATIVE) Pathologist [facility] Result Negative Negative Toxin Result Negative Negative [facility] C. diff result Negative, free toxin Negative, free toxin [facility] C. diff interp Negative for toxigenic Clostridioides (Clostridium) difficile. Analysis was performed using a glutamate dehydrogenase antigen detection assay combined with a C. difficile toxin detection assay. [facility] Stool 06/21/2024 11:1 1 AM INSURANCE VERIFICATION REPRESENTATIVE 06/21/2024 12:55 PM INSURANCE VERIFICATION REPRESENTATIVE Narrative [facility] - 06/21/2024 2:38 PM INSURANCE VERIFICATION REPRESENTATIVE Testing for C. difficile is not recommended within 4 days of a negative result, 10 days of a positive, or 24 hours after laxative administration. If this order is clinically indicated, contact the lab and enter the passcode to complete this order.->[id number] Patricia Bryant MD LAB MICROBIOLOGY - GENERAL ORD ERABLES Final Result Performing Organization Address [facility]/ZIP Co de Phone Number [facility] [place] [address] * Infection Prevention VRE Culture Stool (06/21/2024 11:10 AM INSURANCE VERIFICATION REPRESENTATIVE) Report Final Report: Negative Stool 06/21/2024 11:1 0 AM INSURANCE VERIFICATION REPRESENTATIVE 06/21/2024 2:41 PM INSURANCE VERIFICATION REPRESENTATIVE Narrative [facility] - 06/23/2024 11:15 PM INSURANCE VERIFICATION REPRESENTATIVE Surveillance culture for Infection Prevention purposes only; results indicate colonization, not infection requiring treatment. Testing performed by [facility] ([phone]). Patricia Bryant MD LAB MICROBIOLOGY - GENERAL ORD ERABLES Final Result [facility] [place] [address] * Vancomycin level trough Draw trough 30 minutes prior to 4th dose. (06/21/2024 7:16 AM INSURANCE VERIFICATION REPRESENTATIVE) Vancomycin trough 16.8 10.0 - 20.0 mcg/mL Blood 06/21/2024 7:16 AM INSURANCE VERIFICATION REPRESENTATIVE 06/21/2024 7:27 AM INSURANCE VERIFICATION REPRESENTATIVE Narrative [facility] - 06/21/2024 8:10 AM INSURANCE VERIFICATION REPRESENTATIVE Draw trough 30 minutes prior to 4th dose. Patricia Bryant MD LAB BLOOD ORDERABLES Final Res ult [facility] [place] [address] * eGFR (06/21/2024 5:03 AM INSURANCE VERIFICATION REPRESENTATIVE) eGFR >90 >=60 mL/min/1. 73 m2 Comment: [...] last reviewed 2021. Blood 06/21/2024 5:03 AM INSURANCE VERIFICATION REPRESENTATIVE 06/21/2024 5:14 AM INSURANCE VERIFICATION REPRESENTATIVE Patricia Bryant MD LAB BLOOD ORDERABLES Final Res ult Performing Organization Address City/[facility]/ZIP Co de Phone Number [facility] [place] [address] * Differential, auto (06/21/2024 5:03 AM INSURANCE VERIFICATION REPRESENTATIVE) Neutrophil abs 1.7 1.5 - 6.5 K/cumm Imm gran abs 0.0 0.0 - 0.1 K/cumm [facility] Lymphocyte abs 1.7 0.8 - 3.3 K/cumm [facility] Monocyte abs 0.6 0.2 - 0.8 K/cumm [facility] Eosinophil abs 0.3 0.0 - 0.5 K/cumm [facility] Basophil abs 0.0 0.0 - 0.1 K/cumm [facility] Neutrophil pct 38.8 % [facility] Comment: Interpretive Data Percent cell count reference ranges are not reported, since discordance with absolute values may lead to misinterpretation of CBC data. Current Interpretive Data was last revised on 2017. Imm gran pct 0.2 % [facility] Comment: Interpretive Data Percent cell count reference ranges are not reported, since discordance with absolute values may lead to misinterpretation of CBC data. Current Interpretive Data was last revised on 2017. Lymphocyte pct 40.5 % [facility] Comment: Interpretive Data Percent cell count reference ranges are not reported, since discordance with absolute values may lead to misinterpretation of CBC data. Current Interpretive Data was last revised on 2017. Monocyte pct 13.4 % [facility] Comment: Interpretive Data Percent cell count reference ranges are not reported, since discordance with absolute values may lead to misinterpretation of CBC data. Current Interpretive Data was last revised on 2017. Eosinophil pct 6.6 % [facility] Comment: Interpretive Data Percent cell count reference ranges are not reported, since discordance with absolute values may lead to misinterpretation of CBC data. Current Interpretive Data was last revised on 2017. Basophil pct 0.5 % [facility] Comment: Interpretive Data Percent cell count reference ranges are not reported, since discordance with absolute values may lead to misinterpretation of CBC data. Current Interpretive Data was last revised on 2017. Blood 06/21/2024 5:03 AM INSURANCE VERIFICATION REPRESENTATIVE 06/21/2024 5:14 AM INSURANCE VERIFICATION REPRESENTATIVE us Patricia Bryant MD LAB BLOOD ORDERABLES Final Res ult [facility] Department [place] [address] * (ABNORMAL) CBC with auto differential (06/21/2024 5:03 AM INSURANCE VERIFICATION REPRESENTATIVE) [facility] WBC 4.3 3.8 - 9.9 K/cumm Hgb 11.6(L) 13.0 - 17.5 g/dL [facility] Hct 34.5(L) 38.9 - 50.3 % [facility] Plt 132(L) 150 - 400 K/cumm [facility] MPV 11.3 9.1 - 12.3 fL [facility] RBC 3.53(L) 4.30 - 5.80 M/cumm [facility] MCV 97.7(H) 81.3 - 96.4 fL [facility] MCH 32.9 27.1 - 33.3 pg [facility] MCHC 33.6 32.3 - 35.7 g/dL [facility] RDW CV 13.4 11.1 - 14.9 % [facility] RDW SD 48.0 35.7 - 48.1 fL [facility] NRBC abs 0.00 0.00 - 0.01 K/cumm [facility] Blood 06/21/2024 5:03 AM INSURANCE VERIFICATION REPRESENTATIVE 06/21/2024 5:14 AM INSURANCE VERIFICATION REPRESENTATIVE Patricia Bryant MD LAB BLOOD ORDERABLES Final Res ult Performing Organization Address City/[facility] Co de Phone Number [facility] [place] [address] * Phosphorus (06/21/2024 5:03 AM INSURANCE VERIFICATION REPRESENTATIVE) [facility] Phosphorus, pl 3.1 2.3 - 4.5 mg/dL Blood 06/21/2024 5:03 AM INSURANCE VERIFICATION REPRESENTATIVE 06/21/2024 5:14 AM INSURANCE VERIFICATION REPRESENTATIVE Patricia Bryant MD LAB BLOOD ORDERABLES Final Res ult [facility] [place] [address] * Magnesium (06/21/2024 5:03 AM INSURANCE VERIFICATION REPRESENTATIVE) Magnesium 1.9 1.4 - 2.5 mg/dL Blood 06/21/2024 5:03 AM INSURANCE VERIFICATION REPRESENTATIVE 06/21/2024 5:14 AM INSURANCE VERIFICATION REPRESENTATIVE Patricia Bryant MD LAB BLOOD ORDERABLES Final Res ult [facility] [place] [address] * (ABNORMAL) Comprehensive metabolic panel (06/21/2024 5:03 AM INSURANCE VERIFICATION REPRESENTATIVE) Pathologist [facility] Sodium 145 135 - 145 mmol/L Potassium, pl 3.4 3.3 - 4.9 mmol/L [facility] Chloride 112(H) 97 - 110 mmol/L [facility] CO2 27 22 - 32 mmol/L [facility] Anion gap 6 2 - 15 mmol/L [facility] BUN 9 6 - 25 mg/dL [facility] Creatinine 0.57(L) 0.80 - 1.30 mg/dL [facility] Glucose 106 70 - 199 mg/dL [facility] Comment: Interpretive Data Fasting glucose >/= 126 [...] 2022. Calcium 8.6 8.5 - 10.3 mg/dL [facility] Bilirubin, total 0.2 0.1 - 1.2 mg/dL [facility] Protein, pl 5.6(L) 6.5 - 8.5 g/dL [facility] Albumin 2.7(L) 3.5 - 5.0 g/dL [facility] Alk phos 61 40 - 130 Units/L [facility] ALT 15 7 - 55 Units/L [facility] AST 25 10 - 50 Units/L [facility] Blood 06/21/2024 5:03 AM INSURANCE VERIFICATION REPRESENTATIVE 06/21/2024 5:14 AM INSURANCE VERIFICATION REPRESENTATIVE Patricia Bryant MD LAB BLOOD ORDERABLES Final Res ult Performing Organization Address [facility] Co de Phone Number [facility] [place] [address] * (ABNORMAL) MSSA/MRSA (Staphylococcus aureus) Culture Nasal (06/20/2024 10:30 PM INSURANCE VERIFICATION REPRESENTATIVE) Report Final Report: Methicillin-resist ant Staphylococcus aureus Methicillin-resist ant Staphylococcus aureus #2 (.) Organism METHICILLIN-RESIST ANT STAPHYLOCOCCUS AUREUS [facility] Organism METHICILLIN-RESIST ANT STAPHYLOCOCCUS AUREUS [facility] Nasal 06/20/2024 10:3 0 PM INSURANCE VERIFICATION REPRESENTATIVE 06/20/2024 10:43 PM INSURANCE VERIFICATION REPRESENTATIVE Narrative [facility] - 06/23/2024 10:45 AM INSURANCE VERIFICATION REPRESENTATIVE Testing performed by [facility] ([phone]). Patricia Bryant MD LAB MICROBIOLOGY - GENERAL ORD ERABLES Final Result Performing Organization Address [facility] de Phone Number [facility] [place] [address] * XR Abdomen Ap 1 Vw (06/20/2024 10:29 AM INSURANCE VERIFICATION REPRESENTATIVE) Anatomical Region Laterality Modality Body, Abdomen N/A Computed Radiogr aphy 06/20/2024 10:5 3 AM INSURANCE VERIFICATION REPRESENTATIVE Impressions 06/20/2024 11:51 AM INSURANCE VERIFICATION REPRESENTATIVE Gastrostomy tube. Colonic distention is improved. No radiographic evidence of obstruction. Dictated by: Hunter Hernandez M.D (Ramanan). The radiology attending physician has personally reviewed this study, and had reviewed and/or edited this written report and agrees with it. Electronically signed by: Byron Moya M.D. Narrative 06/20/2024 11:51 AM INSURANCE VERIFICATION REPRESENTATIVE EXAMINATION: Abdomen, one view. HISTORY: Abdominal distention. [...] and culture Urine, bladder (06/19/2024 9:34 PM INSURANCE VERIFICATION REPRESENTATIVE) Color, ur Straw Yellow Clarity, ur Clear Clear [facility] Specific gravity, ur 1.021 1.003 - 1.030 [facility] pH, urine 7.0 [facility] Comment: Interpretive Data U rine pH is affected by diet, medications, systemic acid-base disturbances, and renal tubular function. pH may affect urinary stone formation. For example, urine pH below 6.0 may help reduce the tendency for calcium phosphate stones and pH greater than 6.0 may reduce the tendency for uric acid stone formation. Source: [employer] Current Interpretive Data was last revised on 2017 Protein, ur ql 1+(A) Negative [facility] Glucose, ur ql Negative Negative [facility] Ketones, ur Negative Negative [facility] Bilirubin, ur Negative Negative [facility] Blood, ur Negative Negative [facility] Urobilinogen, ur <2.0 <2.0 mg/dL [facility] Nitrite, ur Negative Negative [facility] Leukocyte esterase, ur Negative Negative [facility] UA reflex comment Reflex to microscopic UA will be performed. [facility] Urine, bladder 06/19/2024 9: 34 PM INSURANCE VERIFICATION REPRESENTATIVE 06/19/2024 10:05 PM INSURANCE VERIFICATION REPRESENTATIVE Patricia Bryant MD LAB MICROBIOLOGY - GENERAL ORD ERABLES Final Result Performing Organization Address [facility] Co de Phone Number [facility] [place] [address] * Urinalysis, microscopic only (06/19/2024 9:34 PM INSURANCE VERIFICATION REPRESENTATIVE) Pathologist [facility] WBC, ur 0-5 0 - 5 /HPF RBC, ur 0-2 0 - 2 /HPF [facility] Epithelial cells, squamous, ur 1-5 0 - 5 /HPF [facility] Culture Reflex Comment Reflex conditions for urine culture (WBC >10) not met. [facility] Urine, bladder 06/19/2024 9: 34 PM INSURANCE VERIFICATION REPRESENTATIVE 06/19/2024 10:05 PM INSURANCE VERIFICATION REPRESENTATIVE Patricia Bryant MD LAB URINE ORDERABLES Final Res ult Performing Organization Address [facility] de Phone Number [facility] [place] [address] * (ABNORMAL) Differential, auto (06/19/2024 9:28 PM INSURANCE VERIFICATION REPRESENTATIVE) Pathologist [facility] Neutrophil abs 6.0 1.5 - 6.5 K/cumm Imm gran abs 0.0 0.0 - 0.1 K/cumm [facility] Lymphocyte abs 0.7(L) 0.8 - 3.3 K/cumm [facility] Monocyte abs 0.2 0.2 - 0.8 K/cumm [facility] Eosinophil abs 0.2 0.0 - 0.5 K/cumm [facility] Basophil abs 0.0 0.0 - 0.1 K/cumm [facility] Neutrophil pct 84.1 % [facility] Comment: Interpretive Data Percent cell count reference ranges are not reported, since discordance with absolute values may lead to misinterpretation of CBC data. Current Interpretive Data was last revised on 2017. Imm gran pct 0.4 % [facility] Comment: Interpretive Data Percent cell count reference ranges are not reported, since discordance with absolute values may lead to misinterpretation of CBC data. Current Interpretive Data was last revised on 2017. Lymphocyte pct 10.1 % [facility] Comment: Interpretive Data Percent cell count reference ranges are not reported, since discordance with absolute values may lead to misinterpretation of CBC data. Current Interpretive Data was last revised on 2017. Monocyte pct 2.9 % [facility] Comment: Interpretive Data Percent cell count reference ranges are not reported, since discordance with absolute values may lead to misinterpretation of CBC data. Current Interpretive Data was last revised on 2017. Eosinophil pct 2.4 % [facility] Comment: Interpretive Data Percent cell count reference ranges are not reported, since discordance with absolute values may lead to misinterpretation of CBC data. Current Interpretive Data was last revised on 2017. [facility]ophil pct 0.1 % [facility] Comment: Interpretive Data Percent cell count reference ranges are not reported, since discordance with absolute values may lead to misinterpretation of CBC data. Current Interpretive Data was last revised on 2017. Blood 06/19/2024 9:28 PM INSURANCE VERIFICATION REPRESENTATIVE 06/19/2024 10:38 PM INSURANCE VERIFICATION REPRESENTATIVE us Patricia Bryant MD LAB BLOOD ORDERABLES Final Res ult [facility] Department [place] [address] * Lacosamide level (06/19/2024 9:28 PM INSURANCE VERIFICATION REPRESENTATIVE) Lacosamide 9.6 1.0 - 10.0 mcg/mL [facility] Comment: ADDITIONAL INFORMATION This test was developed and its performance characteristics determined by [facility] in a manner consistent with CLIA requirements. This test has not been cleared or approved by the U.S. Food and Drug Administration. Test Performed by: [facility] [address] [place] [address] Lead Front End Developer: Marianela Odonnell Ph.D.; CLIA# [id number] Blood 06/19/2024 9:28 PM INSURANCE VERIFICATION REPRESENTATIVE 06/19/2024 11:01 PM INSURANCE VERIFICATION REPRESENTATIVE Narrative [facility] - 06/22/2024 10:25 AM INSURANCE VERIFICATION REPRESENTATIVE Please get level before lacosamide dose is given us Patricia Bryant MD LAB BLOOD ORDERABLES Final Res ult [facility] [place] [address] [place] ref Lab * (ABNORMAL) CBC with auto differential (06/19/2024 9:28 PM INSURANCE VERIFICATION REPRESENTATIVE) WBC 7.1 3.8 - 9.9 K/cumm Hgb 12.5(L) 13.0 - 17.5 g/dL [facility] Hct 37.0(L) 38.9 - 50.3 % [facility] Plt 152 150 - 400 K/cumm [facility] MPV 12.6(H) 9.1 - 12.3 fL [facility] RBC 3.90(L) 4.30 - 5.80 M/cumm [facility] MCV 94.9 81.3 - 96.4 fL [facility] MCH 32.1 27.1 - 33.3 pg [facility] HEALTH MCHC 33.8 32.3 - 35.7 g/dL [facility] RDW CV 13.4 11.1 - 14.9 % [facility] R[facility] SD 46.8 35.7 - 48.1 fL [facility] NRBC abs 0.00 0.00 - 0.01 K/cumm [facility] Blood 06/19/2024 9:28 PM INSURANCE VERIFICATION REPRESENTATIVE 06/19/2024 10:38 PM INSURANCE VERIFICATION REPRESENTATIVE Result [facility] Patricia Bryant MD LAB BLOOD ORDERABLES Final Res ult Performing Organization Address City/[facility]/ZIP Co de Phone Number [facility] [place] [address] * Valproic acid level, total (06/19/2024 9:28 PM INSURANCE VERIFICATION REPRESENTATIVE) [facility] Valproic Acid 76.0 50.0 - 100.0 mcg/mL Comment: Interpretive Data Therapeutic or toxic effects of anticonvulsant drugs may occur at different concentrations in different patients and the correlation between dose and clinical effect must be evaluated individually. Current interpretative data was last revised on 13. Blood 06/19/2024 9:28 PM INSURANCE VERIFICATION REPRESENTATIVE 06/19/2024 10:39 PM INSURANCE VERIFICATION REPRESENTATIVE Narrative [facility] - 06/19/2024 11:40 PM INSURANCE VERIFICATION REPRESENTATIVE Please get level before dose is given Patricia Bryant MD LAB BLOOD ORDERABLES Final Res ult Performing Organization Address City/[facility] Co de Phone Number [facility] [place] [address] * Respiratory pathogen panel Nasopharyngeal (06/19/2024 9:10 PM INSURANCE VERIFICATION REPRESENTATIVE) [facility] Influenza A RNA Not Detected Not Detected Influenza B RNA Not Detected Not Detected [facility] RSV RNA Not Detected Not Detected [facility] COVID-19 RNA Not Detected Not Detected [facility] Coronavirus 229E RNA Not Detected Not Detected [facility] Coronavirus HKU1 RNA Not Detected Not Detected [facility] Coronavirus NL63 RNA Not Detected Not Detected [facility] Coronavirus OC43 RNA Not Detected Not Detected [facility] Adenovirus DNA Not Detected Not Detected [facility] Metapneumovirus RNA Not Detected Not Detected [facility] Rhinovirus/Enterov irus RNA Not Detected Not Detected [facility] Parainfluenza 1 RNA Not Detected Not Detected [facility] Parainfluenza 2 RNA Not Detected Not Detected [facility] Parainfluenza 3 RNA Not Detected Not Detected [facility] Parainfluenza 4 RNA Not Detected Not Detected [facility] B. pertussis DNA Not Detected Not Detected [facility] B. parapertussis DNA Not Detected Not Detected [facility] C. pneumoniae DNA Not Detected Not Detected [facility] M. pneumoniae DNA Not Detected Not Detected [facility] Nasopharyngeal 06/19/2024 9: 10 PM INSURANCE VERIFICATION REPRESENTATIVE 06/19/2024 10:06 PM INSURANCE VERIFICATION REPRESENTATIVE Narrative [facility] - 06/19/2024 11:35 PM INSURANCE VERIFICATION REPRESENTATIVE Is the Patient experiencing symptoms consistent with COVID?->Yes Surveillance testing for transplant patient?->No Interpretive Data The Genomic Expression FilmArray Respiratory Panel (RP2.1) assay is a [...] assay has FDA clearance for testing of FUR REPAIR INSPECTOR swabs. The performance of additional specimen types has been assessed by the performing laboratory. The performance characteristics of this assay have been determined by [facility]. Current interpretive data was last revised on 22. Patricia Bryant MD LAB MICROBIOLOGY - GENERAL ORD ERABLES Final Result [facility] Department [place] [address] * (ABNORMAL) Aerobic culture and gram stain Tracheal aspirate Tracheal (06/19/2024 6:53 PM INSURANCE VERIFICATION REPRESENTATIVE) Direct Specimen Exam Stain: Abundant polymorphonuclear leukocytes seen. Few squamous epithelial cells seen. Moderate mixed bacterial dmoenico seen on Gram stain. Report Final Report: Greater than or equal to 100,000 colonies/ml of Staphylococcus aureus Methicillin resistant (MRSA) by penicillin binding protein 2a (PBP2a) testing. Plus growth of clinically insignificant bacterial domenico. (.) [facility] Organism STAPHYLOCOCCUS AUREUS [facility] Organism PLUS GROWTH OF CLINICALLY INSIGNIFICANT DOMENICO. [facility] Tracheal aspirate (Tracheal) 06/19/2024 6:53 PM INSURANCE VERIFICATION REPRESENTATIVE 06/19/2024 8:18 PM INSURANCE VERIFICATION REPRESENTATIVE Narrative [facility] - 06/27/2024 2:52 PM INSURANCE VERIFICATION REPRESENTATIVE Testing performed by [facility] ([phone]) Specimens submitted from normally sterile body sites [...] - GENERAL ORD ERABLES Final Result [facility] Department [place] [address] * XR Chest 1 View (06/19/2024 6:47 PM INSURANCE VERIFICATION REPRESENTATIVE) Anatomical Region Laterality Modality Body, Chest N/A Digital Radiogra phy 06/20/2024 2:42 PM INSURANCE VERIFICATION REPRESENTATIVE Impressions 06/20/2024 3:15 PM INSURANCE VERIFICATION REPRESENTATIVE Comparison is made to 06/19/2024 at 3:32 [...] Herve Payne M.D. Narrative 06/20/2024 3:15 PM INSURANCE VERIFICATION REPRESENTATIVE EXAMINATION: 1 view chest radiograph Procedure Note [...] pathogen panel Tracheal aspirate (06/19/2024 6:46 PM INSURANCE VERIFICATION REPRESENTATIVE) Pathologist [facility] Influenza A RNA Not Detected Not Detected Influenza B RNA Not Detected Not Detected [facility] RSV RNA Not Detected Not Detected [facility] COVID-19 RNA Not Detected Not Detected [facility] Coronavirus 229E RNA Not Detected Not Detected [facility] Coronavirus HKU1 RNA Not Detected Not Detected [facility] Coronavirus NL63 RNA Not Detected Not Detected [facility] Coronavirus OC43 RNA Not Detected Not Detected [facility] Adenovirus DNA Not Detected Not Detected [facility] Metapneumovirus RNA Not Detected Not Detected [facility] Rhinovirus/Enterov irus RNA Not Detected Not Detected [facility] Parainfluenza 1 RNA Not Detected Not Detected [facility] Parainfluenza 2 RNA Not Detected Not Detected [facility] Parainfluenza 3 RNA Not Detected Not Detected [facility] Parainfluenza 4 RNA Not Detected Not Detected [facility] B. pertussis DNA Not Detected Not Detected [facility] B. parapertussis DNA Not Detected Not Detected [facility] C. pneumoniae DNA Not Detected Not Detected [facility] M. pneumoniae DNA Not Detected Not Detected [facility] Tracheal aspirate 06/19/2024 6:46 PM INSURANCE VERIFICATION REPRESENTATIVE 06/20/2024 7:55 AM INSURANCE VERIFICATION REPRESENTATIVE Narrative [facility] - 06/20/2024 8:58 AM INSURANCE VERIFICATION REPRESENTATIVE Is the Patient experiencing symptoms consistent with COVID?->Yes Surveillance testing for transplant patient?->No Interpretive Data The Genomic Expression FilmArray Respiratory Panel (RP2.1) assay is a [...] assay has FDA clearance for testing of FUR REPAIR INSPECTOR swabs. The performance of additional specimen types has been assessed by the performing laboratory. The performance characteristics of this assay have been determined by [facility]. Current interpretive data was last revised on 22. us Patricia Bryant MD LAB MICROBIOLOGY - GENERAL ORD ERABLES Final Result [facility] Department [place] [address] * XR Abdomen Ap 1 Vw (06/19/2024 4:09 PM INSURANCE VERIFICATION REPRESENTATIVE) Anatomical Region Laterality Modality Body, Abdomen N/A Digital Radiogra phy 06/19/2024 4:35 PM INSURANCE VERIFICATION REPRESENTATIVE Impressions 06/19/2024 5:03 PM INSURANCE VERIFICATION REPRESENTATIVE Diffuse mild gaseous bowel distention, similar to the prior exam and could represent ileus. Partially imaged gastrostomy tube. Dictated by: Hunter Hernandez M.D. ([place]an) The radiology attending physician has personally reviewed this study, and had reviewed and/or edited this written report and agrees with it. Electronically signed by: Lupillo Lugo M.D. Narrative 06/19/2024 5:03 PM INSURANCE VERIFICATION REPRESENTATIVE EXAMINATION: Abdomen, one view. HISTORY: Abdominal pain [...] XR Chest 1 View (06/19/2024 4:08 PM INSURANCE VERIFICATION REPRESENTATIVE) Anatomical Region Laterality Modality Body, Chest N/A Digital Radiogra phy 06/19/2024 4:21 PM INSURANCE VERIFICATION REPRESENTATIVE Impressions 06/19/2024 4:21 PM INSURANCE VERIFICATION REPRESENTATIVE The current study is compared with the [...] Elif Patel M.D. Narrative 06/19/2024 4:21 PM INSURANCE VERIFICATION REPRESENTATIVE EXAMINATION: 1 view chest radiograph Procedure Note [...] Final Result * eGFR (06/19/2024 2:47 PM INSURANCE VERIFICATION REPRESENTATIVE) eGFR >90 >=60 mL/min/1. 73 m2 Comment: [...] last reviewed 2021. Blood 06/19/2024 2:47 PM INSURANCE VERIFICATION REPRESENTATIVE 06/19/2024 3:03 PM INSURANCE VERIFICATION REPRESENTATIVE Patricia Bryant MD LAB BLOOD ORDERABLES Final Res ult [facility] Department [place] [address] * Differential, auto (06/19/2024 2:47 PM INSURANCE VERIFICATION REPRESENTATIVE) Neutrophil abs 5.5 1.5 - 6.5 K/cumm Imm gran abs 0.0 0.0 - 0.1 K/cumm [facility] Lymphocyte abs 0.9 0.8 - 3.3 K/cumm [facility] Monocyte abs 0.2 0.2 - 0.8 K/cumm [facility] Eosinophil abs 0.3 0.0 - 0.5 K/cumm [facility] Basophil abs 0.0 0.0 - 0.1 K/cumm [facility] Neutrophil pct 79.8 % [facility] Comment: Interpretive Data Percent cell count reference ranges are not reported, since discordance with absolute values may lead to misinterpretation of CBC data. Current Interpretive Data was last revised on 2017. Imm gran pct 0.4 % [facility] Comment: Interpretive Data Percent cell count reference ranges are not reported, since discordance with absolute values may lead to misinterpretation of CBC data. Current Interpretive Data was last revised on 2017. Lymphocyte pct 13.4 % [facility] Comment: Interpretive Data Percent cell count reference ranges are not reported, since discordance with absolute values may lead to misinterpretation of CBC data. Current Interpretive Data was last revised on 2017. Monocyte pct 2.5 % [facility] Comment: Interpretive Data Percent cell count reference ranges are not reported, since discordance with absolute values may lead to misinterpretation of CBC data. Current Interpretive Data was last revised on 2017. Eosinophil pct 3.8 % [facility] Comment: Interpretive Data Percent cell count reference ranges are not reported, since discordance with absolute values may lead to misinterpretation of CBC data. Current Interpretive Data was last revised on 2017. Basophil pct 0.1 % [facility] Comment: Interpretive Data Percent cell count reference ranges are not reported, since discordance with absolute values may lead to misinterpretation of CBC data. Current Interpretive Data was last revised on 2017. Blood 06/19/2024 2:47 PM INSURANCE VERIFICATION REPRESENTATIVE 06/19/2024 3:04 PM INSURANCE VERIFICATION REPRESENTATIVE us Patricia Bryant MD LAB BLOOD ORDERABLES Final Res ult [facility] Department [place] [address] * (ABNORMAL) CBC with auto differential (06/19/2024 2:47 PM INSURANCE VERIFICATION REPRESENTATIVE) [facility] WBC 6.9 3.8 - 9.9 K/cumm Hgb 14.2 13.0 - 17.5 g/dL [facility] Hct 42.4 38.9 - 50.3 % [facility] Plt 135(L) 150 - 400 K/cumm [facility] MPV 12.6(H) 9.1 - 12.3 fL [facility] RBC 4.47 4.30 - 5.80 M/cumm [facility] MCV 94.9 81.3 - 96.4 fL [facility] MCH 31.8 27.1 - 33.3 pg [facility] MCHC 33.5 32.3 - 35.7 g/dL [facility] RDW CV 13.2 11.1 - 14.9 % [facility] RDW SD 46.5 35.7 - 48.1 fL [facility] NRBC abs 0.00 0.00 - 0.01 K/cumm [facility] Blood 06/19/2024 2:47 PM INSURANCE VERIFICATION REPRESENTATIVE 06/19/2024 3:04 PM INSURANCE VERIFICATION REPRESENTATIVE Patricia Bryant MD LAB BLOOD ORDERABLES Final Res ult Performing Organization Address City/[facility] Co de Phone Number [facility] [place] [address] * (ABNORMAL) Phosphorus (06/19/2024 2:47 PM INSURANCE VERIFICATION REPRESENTATIVE) [facility] Phosphorus, pl 2.2(L) 2.3 - 4.5 mg/dL Blood 06/19/2024 2:47 PM INSURANCE VERIFICATION REPRESENTATIVE 06/19/2024 3:03 PM INSURANCE VERIFICATION REPRESENTATIVE Patricia Bryant MD LAB BLOOD ORDERABLES Final Res ult [facility] [place] [address] * Magnesium (06/19/2024 2:47 PM INSURANCE VERIFICATION REPRESENTATIVE) Pathologist [facility] Magnesium 2.0 1.4 - 2.5 mg/dL Blood 06/19/2024 2:47 PM INSURANCE VERIFICATION REPRESENTATIVE 06/19/2024 3:03 PM INSURANCE VERIFICATION REPRESENTATIVE Patricia Bryant MD LAB BLOOD ORDERABLES Final Res ult [facility] [place] [address] * (ABNORMAL) Comprehensive metabolic panel (06/19/2024 2:47 PM INSURANCE VERIFICATION REPRESENTATIVE) Pathologist [facility] Sodium 144 135 - 145 mmol/L Potassium, pl 3.9 3.3 - 4.9 mmol/L [facility] Comment:Hemolyzed; Potassium value may be falsely elevated by as much as 0.3-0.5 mmol/L. Suggest redraw and reanalysis. Chloride 105 97 - 110 mmol/L [facility] CO2 29 22 - 32 mmol/L [facility] Anion gap 10 2 - 15 mmol/L [facility] BUN 7 6 - 25 mg/dL [facility] Creatinine 0.62(L) 0.80 - 1.30 mg/dL [facility] Glucose 113 70 - 199 mg/dL [facility] Comment: Interpretive Data Fasting glucose >/= 126 [...] 2022. Calcium 9.5 8.5 - 10.3 mg/dL [facility] Bilirubin, total 0.2 0.1 - 1.2 mg/dL [facility] Protein, pl 7.2 6.5 - 8.5 g/dL [facility] Albumin 3.7 3.5 - 5.0 g/dL [facility] Alk phos 91 40 - 130 Units/L [facility] ALT 13 7 - 55 Units/L [facility] AST 28 10 - 50 Units/L [facility] Comment:Hemolyzed; result ma y be falsely elevated Blood 06/19/2024 2:47 PM INSURANCE VERIFICATION REPRESENTATIVE 06/19/2024 3:03 PM INSURANCE VERIFICATION REPRESENTATIVE Patricia Bryant MD LAB BLOOD ORDERABLES Final Res ult Performing Organization Address [facility]/ZIP Co de Phone Number [facility] [place] [address] * POCT glucose (06/19/2024 2:25 PM INSURANCE VERIFICATION REPRESENTATIVE) Glucose, POC 125 70 - 199 mg/dL Blood 06/19/2024 2:25 PM INSURANCE VERIFICATION REPRESENTATIVE 06/19/2024 2:25 PM INSURANCE VERIFICATION REPRESENTATIVE Patricia Bryant MD LAB POCT ORDERABLES - DEVICE F inal Result Performing Organization Address [facility] Co de Phone Number [facility] [place] [address] * XR Abdomen Ap 1 Vw (06/16/2024 6:16 PM INSURANCE VERIFICATION REPRESENTATIVE) Anatomical Region Laterality Modality Body, Abdomen N/A Computed Radiogr aphy 06/16/2024 6:56 PM INSURANCE VERIFICATION REPRESENTATIVE Impressions 06/16/2024 6:56 PM INSURANCE VERIFICATION REPRESENTATIVE Gastrostomy tube is present. Aerated bowel seen throughout the abdomen. The gaseous distention is improved from the prior examination. Distal rectal air is not definitively visualized. No pneumoperitoneum. Electronically signed by: Sekou Wolf M.D. Narrative 06/16/2024 6:56 PM INSURANCE VERIFICATION REPRESENTATIVE EXAMINATION: Abdomen, one view. HISTORY: Abdominal distension. [...] Res ult * eGFR (06/16/2024 12:42 PM INSURANCE VERIFICATION REPRESENTATIVE) eGFR >90 >=60 mL/min/1. 73 m2 Comment: [...] reviewed 2021. Blood 06/16/2024 12:4 2 PM INSURANCE VERIFICATION REPRESENTATIVE 06/16/2024 12:49 PM INSURANCE VERIFICATION REPRESENTATIVE Misael Felix MD LAB BLOOD ORDERABLES Final Result [facility] Department [place] [address] * Differential, auto (06/16/2024 12:42 PM INSURANCE VERIFICATION REPRESENTATIVE) Neutrophil abs 2.5 1.5 - 6.5 K/cumm Imm gran abs 0.0 0.0 - 0.1 K/cumm [facility] Lymphocyte abs 2.4 0.8 - 3.3 K/cumm [facility] Monocyte abs 0.4 0.2 - 0.8 K/cumm [facility] Eosinophil abs 0.4 0.0 - 0.5 K/cumm [facility] Basophil abs 0.0 0.0 - 0.1 K/cumm [facility] Neutrophil pct 42.8 % [facility] Comment: Interpretive Data Percent cell count reference ranges are not reported, since discordance with absolute values may lead to misinterpretation of CBC data. Current Interpretive Data was last revised on 2017. Imm gran pct 0.2 % [facility] Comment: Interpretive Data Percent cell count reference ranges are not reported, since discordance with absolute values may lead to misinterpretation of CBC data. Current Interpretive Data was last revised on 2017. Lymphocyte pct 42.2 % [facility] Comment: Interpretive Data Percent cell count reference ranges are not reported, since discordance with absolute values may lead to misinterpretation of CBC data. Current Interpretive Data was last revised on 2017. Monocyte pct 6.7 % [facility] Comment: Interpretive Data Percent cell count reference ranges are not reported, since discordance with absolute values may lead to misinterpretation of CBC data. Current Interpretive Data was last revised on 2017. Eosinophil pct 7.7 % [facility] Comment: Interpretive Data Percent cell count reference ranges are not reported, since discordance with absolute values may lead to misinterpretation of CBC data. Current Interpretive Data was last revised on 2017. Basophil pct 0.4 % [facility] Comment: Interpretive Data Percent cell count reference ranges are not reported, since discordance with absolute values may lead to misinterpretation of CBC data. Current Interpretive Data was last revised on 2017. Blood 06/16/2024 12:4 2 PM INSURANCE VERIFICATION REPRESENTATIVE 06/16/2024 12:49 PM INSURANCE VERIFICATION REPRESENTATIVE Misael Felix MD LAB BLOOD ORDERABLES Final Result Performing Organization Address [facility] de Phone Number [facility] Department [place] [address] * (ABNORMAL) CBC with auto differential (06/16/2024 12:42 PM INSURANCE VERIFICATION REPRESENTATIVE) Pathologist [facility] WBC 5.7 3.8 - 9.9 K/cumm Hgb 12.2(L) 13.0 - 17.5 g/dL [facility] Hct 36.6(L) 38.9 - 50.3 % [facility] Plt 156 150 - 400 K/cumm [facility] MPV 12.6(H) 9.1 - 12.3 fL [facility] RBC 3.85(L) 4.30 - 5.80 M/cumm [facility] MCV 95.1 81.3 - 96.4 fL [facility] MCH 31.7 27.1 - 33.3 pg [facility] MCHC 33.3 32.3 - 35.7 g/dL [facility] RDW CV 13.0 11.1 - 14.9 % [facility] RDW SD 45.1 35.7 - 48.1 fL [facility] NRBC abs 0.00 0.00 - 0.01 K/cumm [facility] Blood 06/16/2024 12:4 2 PM INSURANCE VERIFICATION REPRESENTATIVE 06/16/2024 12:49 PM INSURANCE VERIFICATION REPRESENTATIVE Misael Felix MD LAB BLOOD ORDERABLES Final Result Performing Organization Address [facility] Co de Phone Number [facility] [place] [address] * Phosphorus (06/16/2024 12:42 PM INSURANCE VERIFICATION REPRESENTATIVE) Pathologist [facility] Phosphorus, pl 2.5 2.3 - 4.5 mg/dL Blood 06/16/2024 12:4 2 PM INSURANCE VERIFICATION REPRESENTATIVE 06/16/2024 12:49 PM INSURANCE VERIFICATION REPRESENTATIVE Misael Felix MD LAB BLOOD ORDERABLES Final Result [facility] Department [place] [address] * Magnesium (06/16/2024 12:42 PM INSURANCE VERIFICATION REPRESENTATIVE) [facility] Magnesium 2.0 1.4 - 2.5 mg/dL Blood 06/16/2024 12:4 2 PM INSURANCE VERIFICATION REPRESENTATIVE 06/16/2024 12:49 PM INSURANCE VERIFICATION REPRESENTATIVE Misael Felix MD LAB BLOOD ORDERABLES Final Result Performing Organization Address [facility] Co de Phone Number [facility] [place] [address] * (ABNORMAL) Comprehensive metabolic panel (06/16/2024 12:42 PM INSURANCE VERIFICATION REPRESENTATIVE) [facility] Sodium 143 135 - 145 mmol/L Potassium, pl 3.5 3.3 - 4.9 mmol/L [facility] Chloride 111(H) 97 - 110 mmol/L [facility] CO2 26 22 - 32 mmol/L [facility] Anion gap 6 2 - 15 mmol/L [facility] BUN 6 6 - 25 mg/dL [facility] Creatinine 0.56(L) 0.80 - 1.30 mg/dL [facility] Glucose 94 70 - 199 mg/dL [facility] Comment: Interpretive Data Fasting glucose >/= 126 [...] 2022. Calcium 8.9 8.5 - 10.3 mg/dL [facility] Bilirubin, total 0.4 0.1 - 1.2 mg/dL [facility] Protein, pl 6.3(L) 6.5 - 8.5 g/dL [facility] Albumin 3.3(L) 3.5 - 5.0 g/dL [facility] Alk phos 79 40 - 130 Units/L [facility] ALT 10 7 - 55 Units/L [facility] AST 18 10 - 50 Units/L [facility] Blood 06/16/2024 12:4 2 PM INSURANCE VERIFICATION REPRESENTATIVE 06/16/2024 12:49 PM INSURANCE VERIFICATION REPRESENTATIVE us Misael Felix MD LAB BLOOD ORDERABLES Final Result [facility] Department [place] [address] * XR Abdomen Ap 1 Vw (06/15/2024 1:57 AM INSURANCE VERIFICATION REPRESENTATIVE) Anatomical Region Laterality Modality Body, Abdomen N/A Computed Radiogr aphy 06/15/2024 3:15 PM INSURANCE VERIFICATION REPRESENTATIVE Impressions 06/15/2024 4:44 PM INSURANCE VERIFICATION REPRESENTATIVE There is a gastrostomy tube with tip [...] and agrees with it. Electronically signed by: Sena Angel M.D. Narrative 06/15/2024 4:44 PM INSURANCE VERIFICATION REPRESENTATIVE EXAMINATION: Abdomen, one view. HISTORY: Abdominal distension. [...] Res ult * eGFR (06/13/2024 4:59 AM INSURANCE VERIFICATION REPRESENTATIVE) eGFR >90 >=60 mL/min/1. 73 m2 Comment: [...] last reviewed 2021. Blood 06/13/2024 4:59 AM INSURANCE VERIFICATION REPRESENTATIVE 06/13/2024 5:38 AM INSURANCE VERIFICATION REPRESENTATIVE us Ryan Jauregui MD LAB BLOOD ORDERABLES Final Resul t [facility] [place] [address] * (ABNORMAL) Differential, auto (06/13/2024 4:59 AM INSURANCE VERIFICATION REPRESENTATIVE) Neutrophil abs 10.3(H) 1.5 - 6.5 K/cumm Imm gran abs 0.1 0.0 - 0.1 K/cumm [facility] Lymphocyte abs 3.0 0.8 - 3.3 K/cumm [facility] Monocyte abs 0.9(H) 0.2 - 0.8 K/cumm [facility] Eosinophil abs 0.2 0.0 - 0.5 K/cumm [facility] Basophil abs 0.0 0.0 - 0.1 K/cumm [facility] Neutrophil pct 70.9 % [facility] Comment: Interpretive Data Percent cell count reference ranges are not reported, since discordance with absolute values may lead to misinterpretation of CBC data. Current Interpretive Data was last revised on 2017. Imm gran pct 0.4 % [facility] Comment: Interpretive Data Percent cell count reference ranges are not reported, since discordance with absolute values may lead to misinterpretation of CBC data. Current Interpretive Data was last revised on 2017. Lymphocyte pct 20.7 % [facility] Comment: Interpretive Data Percent cell count reference ranges are not reported, since discordance with absolute values may lead to misinterpretation of CBC data. Current Interpretive Data was last revised on 2017. Monocyte pct 6.5 % [facility] Comment: Interpretive Data Percent cell count reference ranges are not reported, since discordance with absolute values may lead to misinterpretation of CBC data. Current Interpretive Data was last revised on 2017. Eosinophil pct 1.4 % [facility] Comment: Interpretive Data Percent cell count reference ranges are not reported, since discordance with absolute values may lead to misinterpretation of CBC data. Current Interpretive Data was last revised on 2017. Basophil pct 0.1 % [facility] Comment: Interpretive Data Percent cell count reference ranges are not reported, since discordance with absolute values may lead to misinterpretation of CBC data. Current Interpretive Data was last revised on 2017. Blood 06/13/2024 4:59 AM INSURANCE VERIFICATION REPRESENTATIVE 06/13/2024 5:38 AM INSURANCE VERIFICATION REPRESENTATIVE us Ryan Jauregui MD LAB BLOOD ORDERABLES Final Resul t [facility] [place] [address] * Lacosamide level (06/13/2024 4:59 AM INSURANCE VERIFICATION REPRESENTATIVE) Pathologist [facility] Lacosamide 1.4 1.0 - 10.0 mcg/mL [facility] Comment: ADDITIONAL INFORMATION This test was developed and its performance characteristics determined by [facility] in a manner consistent with CLIA requirements. This test has not been cleared or approved by the U.S. Food and Drug Administration. Test Performed by: [facility] [address] [place] [address] Lead Front End Developer: Marianela Odonnell Ph.D.; CLIA# [id number] Blood 06/13/2024 4:59 AM INSURANCE VERIFICATION REPRESENTATIVE 06/13/2024 5:38 AM INSURANCE VERIFICATION REPRESENTATIVE Ryan Jauregui MD LAB BLOOD ORDERABLES Final Resul t [facility] [place] [address] [facility] * (ABNORMAL) CBC with auto differential (06/13/2024 4:59 AM INSURANCE VERIFICATION REPRESENTATIVE) [facility] WBC 14.6(H) 3.8 - 9.9 K/cumm Hgb 13.2 13.0 - 17.5 g/dL [facility] Hct 39.7 38.9 - 50.3 % [facility] Plt 155 150 - 400 K/cumm [facility] MPV 12.4(H) 9.1 - 12.3 fL [facility] RBC 4.03(L) 4.30 - 5.80 M/cumm [facility] MCV 98.5(H) 81.3 - 96.4 fL [facility] MCH 32.8 27.1 - 33.3 pg [facility] MCHC 33.2 32.3 - 35.7 g/dL [facility] RDW CV 13.6 11.1 - 14.9 % [facility] RDW SD 50.2(H) 35.7 - 48.1 fL [facility] NRBC abs 0.00 0.00 - 0.01 K/cumm [facility] Blood 06/13/2024 4:59 AM INSURANCE VERIFICATION REPRESENTATIVE 06/13/2024 5:38 AM INSURANCE VERIFICATION REPRESENTATIVE Ryan Jauregui MD LAB BLOOD ORDERABLES Final Resul t [facility] [place] [address] * Blood culture Blood (06/13/2024 4:59 AM INSURANCE VERIFICATION REPRESENTATIVE) Report Final Report: No growth Blood 06/13/2024 4:59 AM INSURANCE VERIFICATION REPRESENTATIVE 06/13/2024 6:21 AM INSURANCE VERIFICATION REPRESENTATIVE Narrative [facility] - 06/17/2024 7:00 AM INSURANCE VERIFICATION REPRESENTATIVE From a different site than #1. Collection->Peripheral [...] performance characteristics have been verified by the [facility]. For questions about this culture, contact the Microbiology Laboratory at [phone]. Interpretive data was last revised on 24. us Ryan Jauregui MD LAB MICROBIOLOGY - GENERAL ORDER NICHOLE Final Result Performing Organization Address [facility] de Phone Number [facility] [place] [address] * Phosphorus (06/13/2024 4:59 AM INSURANCE VERIFICATION REPRESENTATIVE) Phosphorus, pl 3.0 2.3 - 4.5 mg/dL Blood 06/13/2024 4:59 AM INSURANCE VERIFICATION REPRESENTATIVE 06/13/2024 5:38 AM INSURANCE VERIFICATION REPRESENTATIVE us Ryan Jauregui MD LAB BLOOD ORDERABLES Final Resul t Performing Organization Address [facility] de Phone Number [facility] Department [place] [address] * Magnesium (06/13/2024 4:59 AM INSURANCE VERIFICATION REPRESENTATIVE) Magnesium 1.9 1.4 - 2.5 mg/dL Blood 06/13/2024 4:59 AM INSURANCE VERIFICATION REPRESENTATIVE 06/13/2024 5:38 AM INSURANCE VERIFICATION REPRESENTATIVE us Ryan Jauregui MD LAB BLOOD ORDERABLES Final Resul t Performing Organization Address [facility] de Phone Number [facility] [place] [address] * (ABNORMAL) Valproic acid level, total (06/13/2024 4:59 AM INSURANCE VERIFICATION REPRESENTATIVE) Valproic Acid 48.0(L) 50.0 - 100.0 mcg/mL Comment: Interpretive Data Therapeutic or toxic effects of anticonvulsant drugs may occur at different concentrations in different patients and the correlation between dose and clinical effect must be evaluated individually. Current interpretative data was last revised on 13. Blood 06/13/2024 4:59 AM INSURANCE VERIFICATION REPRESENTATIVE 06/13/2024 5:38 AM INSURANCE VERIFICATION REPRESENTATIVE us Ryan Jauregui MD LAB BLOOD ORDERABLES Final Resul t Performing Organization Address City/[facility]/ZIP Co de Phone Number [facility] [place] [address] * (ABNORMAL) Comprehensive metabolic panel (06/13/2024 4:59 AM INSURANCE VERIFICATION REPRESENTATIVE) Sodium 141 135 - 145 mmol/L Potassium, pl 3.9 3.3 - 4.9 mmol/L [facility] Chloride 106 97 - 110 mmol/L [facility] CO2 28 22 - 32 mmol/L [facility] Anion gap 7 2 - 15 mmol/L [facility] BUN 8 6 - 25 mg/dL [facility] Creatinine 0.54(L) 0.80 - 1.30 mg/dL [facility] Glucose 103 70 - 199 mg/dL [facility] Comment: Interpretive Data Fasting glucose >/= 126 [...] 2022. Calcium 9.5 8.5 - 10.3 mg/dL [facility] Bilirubin, total 0.5 0.1 - 1.2 mg/dL [facility] Protein, pl 7.1 6.5 - 8.5 g/dL [facility] Albumin 3.7 3.5 - 5.0 g/dL [facility] Alk phos 96 40 - 130 Units/L [facility] ALT 17 7 - 55 Units/L [facility] AST 22 10 - 50 Units/L [facility] Blood 06/13/2024 4:59 AM INSURANCE VERIFICATION REPRESENTATIVE 06/13/2024 5:38 AM INSURANCE VERIFICATION REPRESENTATIVE Ryan Jauregui MD LAB BLOOD ORDERABLES Final Resul t [facility] [place] [address] * TSH (06/12/2024 3:51 PM INSURANCE VERIFICATION REPRESENTATIVE) [facility] Thyroid Stimulating Hormone 2.58 0.30 - 4.20 mcIUnit/mL Blood 06/12/2024 3:51 PM INSURANCE VERIFICATION REPRESENTATIVE 06/12/2024 5:05 PM INSURANCE VERIFICATION REPRESENTATIVE us Ryan Jauregui MD LAB BLOOD ORDERABLES Final Resul t [facility] Department [place] [address] * (ABNORMAL) Differential, auto (06/12/2024 3:30 PM INSURANCE VERIFICATION REPRESENTATIVE) [facility] Neutrophil abs 9.5(H) 1.5 - 6.5 K/cumm Imm gran abs 0.0 0.0 - 0.1 K/cumm [facility] Lymphocyte abs 2.3 0.8 - 3.3 K/cumm [facility] Monocyte abs 1.1(H) 0.2 - 0.8 K/cumm [facility] Eosinophil abs 0.2 0.0 - 0.5 K/cumm [facility] Basophil abs 0.0 0.0 - 0.1 K/cumm [facility] Neutrophil pct 72.4 % [facility] Comment: Interpretive Data Percent cell count reference ranges are not reported, since discordance with absolute values may lead to misinterpretation of CBC data. Current Interpretive Data was last revised on 2017. Imm gran pct 0.2 % [facility] Comment: Interpretive Data Percent cell count reference ranges are not reported, since discordance with absolute values may lead to misinterpretation of CBC data. Current Interpretive Data was last revised on 2017. Lymphocyte pct 17.4 % [facility] Comment: Interpretive Data Percent cell count reference ranges are not reported, since discordance with absolute values may lead to misinterpretation of CBC data. Current Interpretive Data was last revised on 2017. Monocyte pct 8.3 % [facility] Comment: Interpretive Data Percent cell count reference ranges are not reported, since discordance with absolute values may lead to misinterpretation of CBC data. Current Interpretive Data was last revised on 2017. Eosinophil pct 1.5 % [facility] Comment: Interpretive Data Percent cell count reference ranges are not reported, since discordance with absolute values may lead to misinterpretation of CBC data. Current Interpretive Data was last revised on 2017. Basophil pct 0.2 % [facility] Comment: Interpretive Data Percent cell count reference ranges are not reported, since discordance with absolute values may lead to misinterpretation of CBC data. Current Interpretive Data was last revised on 2017. Blood 06/12/2024 3:30 PM INSURANCE VERIFICATION REPRESENTATIVE 06/12/2024 5:10 PM INSURANCE VERIFICATION REPRESENTATIVE us Ryan Jauregui MD LAB BLOOD ORDERABLES Final Resul t [facility] [place] [address] * (ABNORMAL) CBC with auto differential (06/12/2024 3:30 PM INSURANCE VERIFICATION REPRESENTATIVE) WBC 13.3(H) 3.8 - 9.9 K/cumm Hgb 13.7 13.0 - 17.5 g/dL [facility] Hct 41.5 38.9 - 50.3 % [facility] Plt 162 150 - 400 K/cumm [facility] MPV 13.6(H) 9.1 - 12.3 fL [facility] RBC 4.27(L) 4.30 - 5.80 M/cumm [facility] MCV 97.2(H) 81.3 - 96.4 fL [facility] MCH 32.1 27.1 - 33.3 pg [facility] MCHC 33.0 32.3 - 35.7 g/dL [facility] RDW CV 13.7 11.1 - 14.9 % [facility] RDW SD 48.8(H) 35.7 - 48.1 fL [facility] NRBC abs 0.00 0.00 - 0.01 K/cumm [facility] Blood 06/12/2024 3:30 PM INSURANCE VERIFICATION REPRESENTATIVE 06/12/2024 5:10 PM INSURANCE VERIFICATION REPRESENTATIVE Result [facility] Ryan Jauregui MD LAB BLOOD ORDERABLES Final Resul t Performing Organization Address [facility] de Phone Number [facility] [place] [address] * Hemoglobin A1c (06/12/2024 3:30 PM INSURANCE VERIFICATION REPRESENTATIVE) [facility] Hgb A1C 4.9 4.0 - 5.6 % Estimated Average Glucose 94 mg/dL [facility] Comment: The ADA recommends reporting an estimated Average Glucose (eAG) with all Hemoglobin A1c results using the equation derived from a study of 507 normal and diabetic adults. Minority populations were underrepresented and children were not included. (Diabetes Care 2020; 43(S1): S66-S76). The eAG is not equivalent to a fasting glucose. Blood 06/12/2024 3:30 PM INSURANCE VERIFICATION REPRESENTATIVE 06/12/2024 5:10 PM INSURANCE VERIFICATION REPRESENTATIVE Result [facility] Ryan Jauregui MD LAB BLOOD ORDERABLES Final Resul t Performing Organization Address [facility] de Phone Number [facility] [place] [address] * Troponin I high-sensitivity 4-hour (06/12/2024 3:27 PM INSURANCE VERIFICATION REPRESENTATIVE) Pathologist [facility] Trop I hs 10 <=35 ng/L Comment: Interpretive Data For further hscTnI resources including the diagnostic algorithm and an aid in interpretation, copy and paste this link: [email or web address].testcatalog.org/show/[email or web address] Current Interpretive Data last revised 2019. Trop I hs delta 1 ng/L [facility] Trop I hs interp Insignificant [facility] Blood 06/12/2024 3:27 PM INSURANCE VERIFICATION REPRESENTATIVE 06/12/2024 5:06 PM INSURANCE VERIFICATION REPRESENTATIVE Shakila Jung MD LAB BLOOD ORDERABL ES Final Result [facility] [place] [address] * XR Chest 1 Vw Portable (06/12/2024 2:47 PM INSURANCE VERIFICATION REPRESENTATIVE) Anatomical Region Laterality Modality Body, Chest N/A Computed Radiogr aphy 06/12/2024 2:51 PM INSURANCE VERIFICATION REPRESENTATIVE Impressions 06/12/2024 2:51 PM INSURANCE VERIFICATION REPRESENTATIVE Comparison to 10/07/2021. Tracheostomy device in place. Small lung volumes with bibasilar atelectasis. No pneumothorax or focal consolidation. Unchanged cardiomediastinal silhouette, accounting for differences volumes. Small left pleural effusion. No right pleural effusion. Electronically signed by: Raul Whitfield M.D. Narrative 06/12/2024 2:51 PM INSURANCE VERIFICATION REPRESENTATIVE EXAMINATION: 1 view chest radiograph Procedure Note [...] Urine, in and out catheter (06/12/2024 2:38PM INSURANCE VERIFICATION REPRESENTATIVE) Color, ur Straw Yellow Clarity, ur Clear Clear [facility] Specific gravity, ur >1.042(H) 1.003 - 1.030 [facility] pH, urine 8.5 [facility] Comment: Interpretive Data U rine pH is affected by diet, medications, systemic acid-base disturbances, and renal tubular function. pH may affect urinary stone formation. For example, urine pH below 6.0 may help reduce the tendency for calcium phosphate stones and pH greater than 6.0 may reduce the tendency for uric acid stone formation. Source: [facility] Current Interpretive Data was last revised on 2017 Protein, ur ql Trace Negative [facility] Glucose, ur ql Negative Negative [facility] Ketones, ur Negative Negative [facility] Bilirubin, ur Negative Negative [facility] Blood, ur Negative Negative [facility] Urobilinogen, ur 2.0(A) <2.0 mg/dL [facility] Nitrite, ur Negative Negative [facility] Leukocyte esterase, ur Negative Negative [facility] UA reflex comment Reflex conditions for microscopic UA and culture not met. [facility] Urine, in and out catheter 06/12/2024 2:38 PM INSURANCE VERIFICATION REPRESENTATIVE 06/12/2024 3:47 PM INSURANCE VERIFICATION REPRESENTATIVE us Shakila Jung MD LAB MICROBIOLOGY - GENERAL ORDERABLES Final Result [facility] [place] [address] * (ABNORMAL) Differential, auto (06/12/2024 2:23 PM INSURANCE VERIFICATION REPRESENTATIVE) Neutrophil abs 9.9(H) 1.5 - 6.5 K/cumm Imm gran abs 0.1 0.0 - 0.1 K/cumm [facility] Lymphocyte abs 2.5 0.8 - 3.3 K/cumm [facility] Monocyte abs 1.0(H) 0.2 - 0.8 K/cumm [facility] Eosinophil abs 0.2 0.0 - 0.5 K/cumm [facility] Basophil abs 0.0 0.0 - 0.1 K/cumm [facility] Neutrophil pct 72.4 % [facility] Comment: Interpretive Data Percent cell count reference ranges are not reported, since discordance with absolute values may lead to misinterpretation of CBC data. Current Interpretive Data was last revised on 2017. Imm gran pct 0.4 % [facility] Comment: Interpretive Data Percent cell count reference ranges are not reported, since discordance with absolute values may lead to misinterpretation of CBC data. Current Interpretive Data was last revised on 2017. Lymphocyte pct 18.4 % [facility] Comment: Interpretive Data Percent cell count reference ranges are not reported, since discordance with absolute values may lead to misinterpretation of CBC data. Current Interpretive Data was last revised on 2017. Monocyte pct 7.2 % [facility] Comment: Interpretive Data Percent cell count reference ranges are not reported, since discordance with absolute values may lead to misinterpretation of CBC data. Current Interpretive Data was last revised on 2017. Eosinophil pct 1.5 % [facility] Comment: Interpretive Data Percent cell count reference ranges are not reported, since discordance with absolute values may lead to misinterpretation of CBC data. Current Interpretive Data was last revised on 2017. Basophil pct 0.1 % [facility] Comment: Interpretive Data Percent cell count reference ranges are not reported, since discordance with absolute values may lead to misinterpretation of CBC data. Current Interpretive Data was last revised on 2017. Blood 06/12/2024 2:23 PM INSURANCE VERIFICATION REPRESENTATIVE 06/12/2024 4:04 PM INSURANCE VERIFICATION REPRESENTATIVE us Shakila Jung MD LAB BLOOD ORDERABL ES Final Result [facility] [place] [address] * (ABNORMAL) CBC with auto differential (06/12/2024 2:23 PM INSURANCE VERIFICATION REPRESENTATIVE) WBC 13.7(H) 3.8 - 9.9 K/cumm Hgb 14.1 13.0 - 17.5 g/dL [facility] Hct 42.0 38.9 - 50.3 % [facility] Plt 171 150 - 400 K/cumm [facility] MPV 13.2(H) 9.1 - 12.3 fL [facility] RBC 4.36 4.30 - 5.80 M/cumm [facility] MCV 96.3 81.3 - 96.4 fL [facility] MCH 32.3 27.1 - 33.3 pg [facility] MCHC 33.6 32.3 - 35.7 g/dL [facility] RDW CV 13.5 11.1 - 14.9 % [facility] RDW SD 48.5(H) 35.7 - 48.1 fL [facility] NRBC abs 0.00 0.00 - 0.01 K/cumm [facility] Blood 06/12/2024 2:23 PM INSURANCE VERIFICATION REPRESENTATIVE 06/12/2024 4:04 PM INSURANCE VERIFICATION REPRESENTATIVE Shakila Jung MD LAB BLOOD ORDERABL ES Final Result Performing Organization Address [facility] de Phone Number [facility] [place] [address] * Troponin I high-sensitivity 2-hour (06/12/2024 1:56 PM INSURANCE VERIFICATION REPRESENTATIVE) Trop I hs 10 <=35 ng/L Comment: Interpretive Data For further hscTnI resources including the diagnostic algorithm and an aid in interpretation, copy and paste this link: https://bjhlab.testcatalog.org/show/[email or web address] Current Interpretive Data last revised 2019. Trop I hs delta 1 ng/L [facility] Trop I hs interp Insignificant [facility] Blood 06/12/2024 1:56 PM INSURANCE VERIFICATION REPRESENTATIVE 06/12/2024 2:22 PM INSURANCE VERIFICATION REPRESENTATIVE Shakila Jung MD LAB BLOOD ORDERABL ES Final Result Performing Organization Address [facility]/ZIP Co de Phone Number [facility] [place] [address] * CT Abdomen Pelvis W Contrast (06/12/2024 12:22 PM INSURANCE VERIFICATION REPRESENTATIVE) Anatomical Region Laterality Modality Body N/A Computed Tomogra phy 06/12/2024 12:4 9 PM INSURANCE VERIFICATION REPRESENTATIVE Impressions 06/12/2024 12:49 PM INSURANCE VERIFICATION REPRESENTATIVE No acute findings in the abdomen/pelvis. Specifically, no bowel obstruction. Electronically signed by: Raul Whitfield M.D. Narrative 06/12/2024 12:49 PM INSURANCE VERIFICATION REPRESENTATIVE EXAMINATION: Computed tomography of the abdomen and [...] ED PERIPHERAL LINE INSERTION (06/12/2024 11:50 AM INSURANCE VERIFICATION REPRESENTATIVE) Narrative Shakila Jung MD - 06/12/2024 11:50 AM INSURANCE VERIFICATION REPRESENTATIVE Shakila Jung MD 06/12/2024 11:50 AM Peripheral [...] and COVID-19 PCR Nasopharyngeal (06/12/2024 11:39 AM INSURANCE VERIFICATION REPRESENTATIVE) [facility] COVID-19 RNA Negative Negative [facility] Influenza A RNA Negative Negative [facility] Influenza B RNA Negative Negative [facility] RSV RNA Negative Negative [facility] Comment: Interpretive data: Testing performed by [facility] ([phone]). This test is performed using the [employer] Xpert Xpress CoV-2/Flu/RSV plus assay. This is a multiplex, real-time reverse transcriptase PCR assay intended for the qualitative detection of nucleic acid from SARS-CoV-2, influenza A, influenza B, and respiratory syncytial virus. This assay has been cleared by the [place] Food and Drug administration. The performance characteristics have been verified by the [facility]. Results must be considered in the clinical context, and a negative result does not rule out infection. Interpretive Data last revised 2023 Nasopharyngeal 06/12/2024 11 :39 AM INSURANCE VERIFICATION REPRESENTATIVE 06/12/2024 12:55 PM INSURANCE VERIFICATION REPRESENTATIVE Narrative [facility] - 06/12/2024 1:39 PM INSURANCE VERIFICATION REPRESENTATIVE Is the Patient experiencing symptoms consistent with COVID?->Unknown Result [facility] Shakila Jung MD LAB MICROBIOLOGY - GENERAL ORDERABLES Final Result Performing Organization Address [facility] Co de Phone Number [facility] [place] [address] [facility] * POCT creatinine (06/12/2024 11:29 AM INSURANCE VERIFICATION REPRESENTATIVE) Pathologist [facility] Creatinine POC 0.7 0.7 - 1.3 mg/dL Blood 06/12/2024 11:2 9 AM INSURANCE VERIFICATION REPRESENTATIVE 06/12/2024 11:29 AM INSURANCE VERIFICATION REPRESENTATIVE Result [facility] Shakila Jung MD LAB POCT ORDERABLE S - DEVICE Final Result Performing Organization Address [facility] de Phone Number [facility] [place] [address] * Troponin I high-sensitivity series (baseline, 2hr, 4hr, 6hr) (06/12/2024 11:22 AM INSURANCE VERIFICATION REPRESENTATIVE) Pathologist [facility] Trop I hs 9 <=35 ng/L Comment: Interpretive Data For further hscTnI resources including the diagnostic algorithm and an aid in interpretation, copy and paste this link: https://[email or web address].testcatalog.org/show/[email or web address] Current Interpretive Data last revised 2019. Blood 06/12/2024 11:2 2 AM INSURANCE VERIFICATION REPRESENTATIVE 06/12/2024 1:06 PM INSURANCE VERIFICATION REPRESENTATIVE Shakila Jung MD LAB BLOOD ORDERABL ES Final Result Performing Organization Address [facility] Co de Phone Number [facility] Department [place] [address] * eGFR (06/12/2024 11:22 AM INSURANCE VERIFICATION REPRESENTATIVE) Pathologist [facility] eGFR >90 >=60 mL/min/1. 73 [...] reviewed 2021. Blood 06/12/2024 11:2 2 AM INSURANCE VERIFICATION REPRESENTATIVE 06/12/2024 1:07 PM INSURANCE VERIFICATION REPRESENTATIVE us Shakila Jung MD LAB BLOOD ORDERABL ES Final Result [facility] [place] [address] * Differential, auto (06/12/2024 11:22 AM INSURANCE VERIFICATION REPRESENTATIVE) [facility] Neutrophil abs See Comment 1.5 - 6.5 Comment:Credited, specimen c lotted. Imm gran abs See Comment 0.0 - 0.1 [facility] Comment:Credited, specimen c lotted. Lymphocyte abs See Comment 0.8 - 3.3 [facility] Comment:Credited, specimen c lotted. Monocyte abs See Comment 0.2 - 0.8 [facility] Comment:Credited, specimen c lotted. Eosinophil abs See Comment 0.0 - 0.5 [facility] Comment:Credited, specimen c lotted. Basophil abs See Comment 0.0 - 0.1 [facility] Comment:Credited, specimen c lotted. Neutrophil pct See Comment [facility] Comment: Credited, specimen clotted. Interpretive Data Percent cell count reference ranges are not reported, since discordance with absolute values may lead to misinterpretation of CBC data. Current Interpretive Data was last revised on 2017. Imm gran pct See Comment [facility] Comment: Credited, specimen clotted. Interpretive Data Percent cell count reference ranges are not reported, since discordance with absolute values may lead to misinterpretation of CBC data. Current Interpretive Data was last revised on 2017. Lymphocyte pct See Comment [facility] Comment: Credited, specimen clotted. Interpretive Data Percent cell count reference ranges are not reported, since discordance with absolute values may lead to misinterpretation of CBC data. Current Interpretive Data was last revised on 2017. Monocyte pct See Comment [facility] Comment: Credited, specimen clotted. Interpretive Data Percent cell count reference ranges are not reported, since discordance with absolute values may lead to misinterpretation of CBC data. Current Interpretive Data was last revised on 2017. Eosinophil pct See Comment [facility] Comment: Credited, specimen clotted. Interpretive Data Percent cell count reference ranges are not reported, since discordance with absolute values may lead to misinterpretation of CBC data. Current Interpretive Data was last revised on 2017. Basophil pct See Comment [facility] Comment: Credited, specimen clotted. Interpretive Data Percent cell count reference ranges are not reported, since discordance with absolute values may lead to misinterpretation of CBC data. Current Interpretive Data was last revised on 2017. Blood 06/12/2024 11:2 2 AM INSURANCE VERIFICATION REPRESENTATIVE 06/12/2024 1:07 PM INSURANCE VERIFICATION REPRESENTATIVE us Shakila Jung MD LAB BLOOD ORDERABL ES Edited Result - Final [facility] Department [place] [address] * CBC with auto differential (06/12/2024 11:22 AM INSURANCE VERIFICATION REPRESENTATIVE) WBC See Comment 3.8 - 9.9 Comment:Credited, specimen c lotted. Hgb See Comment 13.0 - 17.5 [facility] Comment:Credited, specimen c lotted. Hct See Comment 38.9 - 50.3 [facility] Comment:Credited, specimen c lotted. Plt See Comment 150 - 400 [facility] Comment: Credited, specimen clotted. spoke to ALFRED Velásquez 06/12/2024 14:17:24 INSURANCE VERIFICATION REPRESENTATIVE fv MPV See Comment 9.1 - 12.3 [facility] Comment:Credited, specimen c lotted. RBC See Comment 4.30 - 5.80 [facility] Comment:Credited, specimen c lotted. MCV See Comment 81.3 - 96.4 [facility] Comment:Credited, specimen c lotted. MCH See Comment 27.1 - 33.3 [facility] Comment:Credited, specimen c lotted. MCHC See Comment 32.3 - 35.7 [facility] Comment:Credited, specimen c lotted. RDW CV See Comment 11.1 - 14.9 [facility] Comment:Credited, specimen c lotted. RDW SD See Comment 35.7 - 48.1 [facility] Comment:Credited, specimen c lotted. NRBC abs See Comment 0.00 - 0.01 K/cumm [facility] Comment:Credited, specimen c lotted. Blood 06/12/2024 11:2 2 AM INSURANCE VERIFICATION REPRESENTATIVE 06/12/2024 1:07 PM INSURANCE VERIFICATION REPRESENTATIVE us Shakila Jung MD LAB BLOOD ORDERABL ES Final Result [facility] Department [place] [address] * Lipase (06/12/2024 11:22 AM INSURANCE VERIFICATION REPRESENTATIVE) Lipase 24 10 - 99 Units/L Blood 06/12/2024 11:2 2 AM INSURANCE VERIFICATION REPRESENTATIVE 06/12/2024 1:07 PM INSURANCE VERIFICATION REPRESENTATIVE Shakila Jung MD LAB BLOOD ORDERABL ES Final Result Performing Organization Address [facility] de Phone Number [facility] [place] [address] * (ABNORMAL) Valproic acid level, total (06/12/2024 11:22 AM INSURANCE VERIFICATION REPRESENTATIVE) Pathologist [facility] Valproic Acid 48.0(L) 50.0 - 100.0 mcg/mL Comment: Interpretive Data Therapeutic or toxic effects of anticonvulsant drugs may occur at different concentrations in different patients and the correlation between dose and clinical effect must be evaluated individually. Current interpretative data was last revised on 13. Blood 06/12/2024 11:2 2 AM INSURANCE VERIFICATION REPRESENTATIVE 06/12/2024 1:07 PM INSURANCE VERIFICATION REPRESENTATIVE Shakila Jung MD LAB BLOOD ORDERABL ES Final Result Performing Organization Address [facility] de Phone Number [facility] [place] [address] * (ABNORMAL) Comprehensive metabolic panel (06/12/2024 11:22 AM INSURANCE VERIFICATION REPRESENTATIVE) Sodium 142 135 - 145 mmol/L Potassium, pl 4.6 3.3 - 4.9 mmol/L [facility] Comment:Hemolyzed; Potassium value may be falsely elevated by as much as 0.6-1.0 mmol/L. Suggest redraw and reanalysis. Chloride 101 97 - 110 mmol/L [facility] CO2 29 22 - 32 mmol/L [facility] Anion gap 12 2 - 15 mmol/L [facility] BUN 11 6 - 25 mg/dL [facility] Creatinine 0.60(L) 0.80 - 1.30 mg/dL [facility] Glucose 89 70 - 199 mg/dL [facility] Comment: Interpretive Data Fasting glucose >/= 126 [...] Calcium 10.3 8.5 - 10.3 mg/dL [facility] Bilirubin, total 0.3 0.1 - 1.2 mg/dL [facility] Protein, pl 8.5 6.5 - 8.5 g/dL [facility] Albumin 4.3 3.5 - 5.0 g/dL [facility] Alk phos 114 40 - 130 Units/L [facility] ALT 22 7 - 55 Units/L [facility] AST 45 10 - 50 Units/L [facility] Comment:Hemolyzed; result ma y be falsely elevated Blood 06/12/2024 11:2 2 AM INSURANCE VERIFICATION REPRESENTATIVE 06/12/2024 1:07 PM INSURANCE VERIFICATION REPRESENTATIVE us Shakila Jung MD LAB BLOOD ORDERABL ES Final Result [facility] [place] [address] * ECG 12-LEAD (06/12/2024 11:01 AM INSURANCE VERIFICATION REPRESENTATIVE) Narrative [facility] - 06/12/2024 11:01 AM INSURANCE VERIFICATION REPRESENTATIVE Shakila Jung MD 06/12/2024 11:02 AM ECG [...] Jung MD ECG ORDERABLES Fi nal Result [facility] * TNI with LIPID PANEL (08/24/2017 4:57 PM CDT) Troponin I < 0.300 0.000 - 0.300 ng/mL 08/24/2017 5:29 PM T [employer] HISTORICAL RESULTS Comment: Reference using ZAC Chemiluminescence Negative: Repeat in 4-6 hours as indicated. Triglycerides 34 0 - 199 mg/dL 08/24/2017 5:30 PM T [facility] [employer] HISTORICAL RESULTS Comment:12 hr pc highly avani mmended for Triglyceride Cholesterol 129 0 - 199 mg/dL 08/24/2017 5:30 PM T [facility] [employer] HISTORICAL RESULTS Comment: Borderline: 200-239 High Risk: >239 HDL Cholesterol 71 mg/dL 8 5:30 PM T [facility] [employer] HISTORICAL RESULTS Comment: Reference Ranges: Males: >=40 mg/dL Females: >=50 mg/dL LDL Cholesterol, Calc 51 0 - 130 mg/dL 08/24/2017 5:30 PM T [facility] [employer] HISTORICAL RESULTS Comment:High Risk > 159 mg/d L Cholesterol/HDL Ratio 1.8 08/24/2017 5:30 PM T [facility] [employer] HISTORICAL RESULTS Comment: Cholesterol / HDL Ratio 3.5:1 or less is desirable. Cholesterol / HDL Ratio greater than 5:1 is considered higher risk for developing heart disease. 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 Source: [facility] [employer] 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 Source: [facility] [employer] 09/18/22 Acinetobacter os 09/18/[address] [facility] Advance Directives For more information, please contact: [phone] Documents on File Type Date Recorded Patient Assistant Auto Center Manager Expl anation ADVANCE DIRECTIVE 10/08/2012 12:00 AM SANDRA R OF STERILIZATION TECHNICIAN FINANCIAL/MEDICAL * Full Code (Latest Code Status on File) Date Activated Date Inactivated Comments 06/12/2024 3:22 PM 06/28/2024 9:30 PM * Full Code Date Activated Date Inactivated Comments 12/10/2020 9:05 AM 12/13/2020 10:44 PM Care Teams Pharmacy Delivery Driver Relationship Specialty Start Date End Date Marielena Smallwood MD [address] [facility] [place] [address] PCP - General Family Practice 07/08/24
--- OUTSIDE RECORDS SUMMARY | 2024-08-20 00:54 | XMS_ITS | Encounter Summary ---
Author Organization [facility] Address [address] [place] [address] Care Team Providers Care Lead Burner Apprentice Name Role Phone Frank Toure MD Unavailable Joyce Luevano NP Primary Care Provider Unavaila Marielena Adame MD Primary Care Provider [phone] Encounter Details Date Type Department Care Team (Late st Contact Info) Description 03/08/2022 [employer] Message Enc [facility] Family Medicine - [address] [address] Joyce Luevano, BOUCHRA Vascular doctor [...] on filedocumented in this encounter Care Teams Lead Burner Apprentice Relationship Specialty Start Date End Date Joyce Luevano NP [address] [place] [address] PCP - General NURSE PRACTITIONER 01/14/20 10/26/23 Marielena Smallwood MD [address] [place] [address] PCP - General FAMILY PRACTICE 10/27/23 Frank Toure MD [address] [place] [address] [employer] Land Surveyor CARDIOVASCULAR DISEASE 05/30/16 documented as of this encounter
--- OUTSIDE RECORDS SUMMARY | 2024-08-20 00:54 | XMS_ITS | Encounter Summary ---
Author Organization [facility] Address [address] [place] [address] Care Team Providers Care Portal Developer Name Role Phone Frank Toure MD Unavailable Joyce Luevano NP Primary Care Provider Unavaila Marielena Adame MD Primary Care Provider [phone] Encounter Details Date Type Department Care Team (Late st Contact Info) Description 03/13/2022 [employer] Message Enc [facility] Family Medicine - [address] [address] Joyce Luevano, HEEL LAYER [employer] Update Social History Tobacco Use [...] on filedocumented in this encounter Care Teams Portal Developer Relationship Specialty Start Date End Date Joyce Luevano NP [address] [place] [address] PCP - General NURSE PRACTITIONER 01/14/20 10/26/23 Marielena Smallwood MD [address] [place] [address] PCP - General FAMILY PRACTICE 10/27/23 Frank Toure MD [address] [place] [address] [employer] Audiovisual Production Specialist CARDIOVASCULAR DISEASE 05/30/16 documented as of this encounter
--- OUTSIDE RECORDS SUMMARY | 2024-08-20 00:54 | XMS_ITS | Encounter Summary ---
Author Organization [facility] Address [address] [place] [address] Care Team Providers Care Research Worker Kitchen Name Role Phone Frank Toure MD Unavailable Joyce Luevano NP Primary Care Provider Unavaila Marielena Adame MD Primary Care Provider [phone] Encounter Details Date Type Department Care Team (Late st Contact Info) Description 03/09/2022 Outrigger Mediat Message Enc [facility] Family Medicine - [address] [address] Joyce Luevano, FURNACE MAINTENANCE Update on Bi Tabor Social History Tobacco [...] on filedocumented in this encounter Care Teams Research Worker Kitchen Relationship Specialty Start Date End Date Joyce Luevano NP [address] [place] [address] PCP - General NURSE PRACTITIONER 01/14/20 10/26/23 Marielena Smallwood MD [address] [place] [address] PCP - General FAMILY PRACTICE 10/27/23 Frank Toure MD [address] [place] [address] [employer] Supervisor Briar Shop CARDIOVASCULAR DISEASE 05/30/16 documented as of this encounter
--- OUTSIDE RECORDS SUMMARY | 2024-08-20 00:54 | XMS_ITS | Encounter Summary ---
Author Organization [facility] Address [address] [place] [address] Care Team Providers Care Pushcart Peddler Name Role Phone Frank Toure MD Unavailable Joyce Luevano NP Primary Care Provider Unavaila Marielena Adame MD Primary Care Provider [phone] Encounter Details Date Type Department Care Team (Late st Contact Info) Description 05/11/2022 [employer] Message Enc [facility] Family Medicine - [address] [address] Joyce Luevano, BOUCHRA Pat appointment [...] on filedocumented in this encounter Care Teams Pushcart Peddler Relationship Specialty Start Date End Date Joyce Luevano NP [address] [place] [address] PCP - General NURSE PRACTITIONER 01/14/20 10/26/23 Marielena Smallwood MD [address] [place] [address] PCP - General FAMILY PRACTICE 10/27/23 Frank Toure MD [address] [place] [address] [employer] Guard Lieutenant CARDIOVASCULAR DISEASE 05/30/16 documented as of this encounter
--- OUTSIDE RECORDS SUMMARY | 2024-08-20 00:54 | XMS_ITS | Encounter Summary ---
Author Organization [facility] Address [address] [place] [address] Care Team Providers Care Hotel Or Motel Receptionist Name Role Phone Frank Toure MD Unavailable Joyce Luevano NP Primary Care Provider Unavaila Marielena Adame MD Primary Care Provider [phone] Encounter Details Date Type Department Care Team (Late st Contact Info) Description 06/16/2022 [employer] Appealt Message Enc [facility] Family Medicine - [address] [address] Joyce Luevano, ANALYTICS MANAGER Bi [employer] Social History Tobacco Use Types [...] Coronavirus/COVID-19? No / Unsure 06/17/2022 10:38 AM HACK SAW OPERATOR documented as of this encounter Functional [...] in writing. She states to fax to [phone]. Will send letter to them. SAW OPERATOR * Yonatan Rodriguez RN - 06/16/2022 12:50 PM CST Please see note. Thanks SAW OPERATOR documented in this encounter Plan of Treatment Not on file documented as of this encounter Visit Diagnoses Not on filedocumented in this encounter Care Teams Hotel Or Motel Receptionist Relationship Specialty Start Date End Date Joyce Luevano NP [address] [place] [address] PCP - General NURSE PRACTITIONER 01/14/20 10/26/23 Marielena Smallwood MD [address] [place] [address] PCP - General FAMILY PRACTICE 10/27/23 Frank Toure MD [address] [place] [address] [employer] Cnc Service Technician CARDIOVASCULAR DISEASE 05/30/16 documented as of this encounter
--- OUTSIDE RECORDS SUMMARY | 2024-08-20 00:54 | XMS_ITS | Encounter Summary ---
Author Organization [facility] Address [address] [place] [address] Care Team Providers Care Associate Account Manager Name Role Phone Frank Toure MD Unavailable Joyce Luevano NP Primary Care Provider Unavaila Marielena Adame MD Primary Care Provider [phone] Encounter Details Date Type Department Care Team (Late st Contact Info) Description 03/15/2022 [employer] Message Enc [facility] Family Medicine - [address] [address] Joyce Luevano, CHIEF MECHANICAL ENGINEER Bi Tabor Social History Tobacco Use Types [...] on filedocumented in this encounter Care Teams Associate Account Manager Relationship Specialty Start Date End Date Joyce Luevano NP [address] [place] [address] PCP - General NURSE PRACTITIONER 01/14/20 10/26/23 Marielena Smallwood MD [address] [place] [address] PCP - General FAMILY PRACTICE 10/27/23 Frank Toure MD [address] [place] [address] [employer] Senior Staff Psychologist CARDIOVASCULAR DISEASE 05/30/16 documented as of this encounter
--- OUTSIDE RECORDS SUMMARY | 2024-08-20 00:54 | XMS_ITS | Encounter Summary ---
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 Thanks documented in this encounter Plan of Treatment Not on file documented as of this encounter Visit Diagnoses Not on filedocumented in this encounter Care Teams Scrap Baller Relationship Specialty Start Date End Date Joyce Luevano NP [address] [place] [address] PCP - General NURSE PRACTITIONER 01/14/20 10/26/23 Marielena Smallwood MD [address] [place] [address] PCP - General FAMILY PRACTICE 10/27/23 Frank Toure MD [address] [place] [address] [place] [facility] Head CARDIOVASCULAR DISEASE 05/30/16 documented as of this encounter
[2024-08-20 01:00] LABS: Anion Gap 10 mmol/L (4-12); Blood Urea Nitrogen 14 mg/dL (9-20); Calcium 9.5 mg/dL (8.4-10.2); Carbon Dioxide 25 mmol/L (22-30); Chloride 103 mmol/L (98-107); Estimated CRCL calculation 132 ml/min; Estimated Glomerular Filt Rate > 60; Glucose 95 mg/dL (65-110); Potassium 4.3 mmol/L (3.4-5.0); Sodium 138 mmol/L (137-145)
[2024-08-20 01:09] LABS: Basophils Percent Auto 0.5 % (0.2-1.2); Eosinophils Absolute Auto 0.5 K/mm3 (0-0.3); Eosinophils Percent Auto 7.8 % (0-4.4); Hematocrit 39.2 % (42.0-52.0); Hemoglobin 12.8 g/dL (14.0-18.0); Immature Granulocyte Absolute 0.01 K/mm3 (0.00-0.031); Immature Granulocyte Percent A 0.2 % (0-0.5); Lymphocytes Absolute Auto 2.81 K/mm3 (0.9-3.2); Lymphocytes Percent Auto 45.7 % (18.3-44.2); Mean Corpuscular HGB Conc 32.7 g/dl (32-36); Mean Corpuscular Hemoglobin 31.9 pg (26-34); Mean Corpuscular Volume 97.8 fl (80-100); Mean Platelet Volume 12.5 fl (7.4-10.4); Monocytes Absolute Auto 0.7 K/mm3 (0.1-0.6); Monocytes Percent Auto 11.2 % (2.6-8.5); Neutrophils Absolute Auto 2.1 K/mm3 (1.3-6.7); Neutrophils Percent Auto 34.6 % (45.5-73.1); Platelet Count Result 128 k/mm3 (150-375); Red Blood Count 4.01 M/mm3 (4.6-6.20); White Blood Count 6.2 K/mm3 (4.5-10.0)
[2024-08-20 01:25] LABS: Influenza A QL RT-PCR Negative (Negative); Influenza B QL RT-PCR Negative (Negative); RSV RNA, RT-PCR Negative (Negative); SARS-CoV-2 RNA PCR Negative (Negative)
[2024-08-20] MEDS: HYDROcodone/acetaminophen (*CRX) 5-325 MG TABLET 1 TAB FEED TUBE (01:47)
--- NOTE | 2024-08-20 06:02 | PC.NURSE ---
Pt changed at this time. New linen, gown, and depend placed. This RN suctioned pt mouth and attempted to suction pt tracheostomy. Pt refused suctioning of tracheostomy and mouthed I am alright to RN. Call light placed within pt reach. Pt repositioned. Lights in room dimmed.
[2024-08-20] MEDS: AZITHROMYCIN 250 MG TABLET 500 MG FEED TUBE (06:37)
== END 2024-08-20 07:17 ==
PROVIDERS: Emergency Provider Student in an Organized Health Care Education/Training Program; PCP Internal Medicine
DX: T85.628A Displacement of other specified internal prosthetic devices, implants and grafts, initial encounter (principal); D64.9 Anemia, unspecified; D69.6 Thrombocytopenia, unspecified; R91.8 Other nonspecific abnormal finding of lung field; Z79.01 Long term (current) use of anticoagulants; Z86.718 Personal history of other venous thrombosis and embolism; J44.9 Chronic obstructive pulmonary disease, unspecified; G40.909 Epilepsy, unspecified, not intractable, without status epilepticus; Z89.612 Acquired absence of left leg above knee; Z87.891 Personal history of nicotine dependence; Z11.59 Encounter for screening for other viral diseases
CPT/HCPCS: 36415; 71045; 80048; 85025; 87637; 99283; A9270

== ENCOUNTER 2024-08-22 00:57 | Emergency (ER) | payer OTHER, SELFPAY ==
--- NOTE | ~2024-08-22 | XR_ITS ---
EXAMINATION: XR chest 1V portable DATE: 08/22/2024 03:04 INDICATION: Tracheostomy replacement. TECHNIQUE: A single frontal view of the chest was obtained. COMPARISON: Chest single view 08/20/2024 FINDINGS: There are airspace opacities at left lung base. No pleural effusion or pneumothorax. The he art size is normal. There are prominent pericardial fat pads. There is a tracheostomy tube in expecte d position. IMPRESSION: 1. Airspace opacities at left lung base with interval improvement, consistent with atelectasis versus pneumonia. Reviewed, dictated and finalized at location A. IMPRESSION: 1. Airspace opacities at left lung base with interval improvement, consistent w ith atelectasis versus pneumonia.
[2024-08-22 01:00] VITALS: BP 143/82; PULSE 67; RESP 13; TEMP 36.6; O2SAT 95
--- NOTE | 2024-08-22 02:14 | PC.NURSE ---
Shiley size 4 uncuffed placed by respiratory.
--- OUTSIDE RECORDS SUMMARY | 2024-08-22 02:16 | XMS_ITS | Encounter Summary ---
Author Organization [facility] Address [address] [place] [address] Care Team Providers Care Correctional Counselor/Case Manager Name Role Phone Frank Toure MD Unavailable Misael Maradiaga DO Primary Care Provider [phone] Joyce Luevano NP Primary Care Provider Unavaila Marielena Adame MD Primary Care Provider [phone] Encounter Details Date Type Department Care Team (Late st Contact Info) Description 12/14/2018 Hospital Follow-up Call [facility] [place] [address] Cony Adan RN Social History Tobacco Use [...] Author Status Yes 12/04/2018 2:03 PM Anahi Chvaarria RN Active * Do you have difficulty [...] on filedocumented in this encounter Care Teams Correctional Counselor/Case Manager Relationship Specialty Start Date End Date Misael Maradiaga DO [address] [place] [address] PCP - General FAMILY PRACTICE 09/28/18 01/13/20 Joyce Luevano NP [address] [place] [address] PCP - General NURSE PRACTITIONER 01/14/20 10/26/23 Marielena Smallwood MD [address] [place] [address] PCP - General FAMILY PRACTICE 10/27/23 Frank Toure MD [address] [place] [address] [employer] 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
--- OUTSIDE RECORDS SUMMARY | 2024-08-22 02:16 | XMS_ITS | Data Portability ---
Demographics Address [address] [place] [address] Home Phone Mobile Phone Email Address Preferred Language en Marital Status Never Bahai Affiliation Unknown Race Black or Irma rican Ethnic Group Not or Lati no Author Organization [facility] Address [address] [place] [address] Assessment No assessment recorded. Plan of Treatment Reminders Order Date Submit Date Provider Last Modified By Organization Details Last Modified Time Details Appointments None recorded. Lab None recorded. Referral None recorded. Procedures None recorded. Surgeries None recorded. Imaging None recorded. Medication Orders ibuprofen 800 mg tablet 2015 016 [facility] [employer], [address] [place] [address], [id number], 6 18:35:08 Prozac 20 mg capsule 2014 015 [facility] [employer], [address] [place] [address], [id number], 5 16:10:15 tramadol 50 mg tablet 2014 015 [facility] [employer], [address] [place] [address], [id number], 5 12:13:56 Flomax 0.4 mg capsule 2014 015 INTERFACE [employer], [address] [place] [address], [id number], 5 16:10:16 Ambien 10 mg tablet 2014 015 [facility] 2 [employer], [facility], [address] [place] [address], [id number], 5 10:37:28 Patient TargetsNo targets recorded. Patient Instructions Encounter Date Encounter Id Patient Instructions Last Modified By Organization Details Last Modified Time 06/10/2014 [id number] stroke: care instructions Not available 06/21/2014 17:33:19 insomnia: care instructions Not available 06/21/2014 17:33:19 epilepsy: care instructions Not available 06/21/2014 17:33:19 09/18/2014 [id number] epilepsy: care instructions [email or web address] Not available 09/18/2014 17:05:10 back care and preventing injuries: care instructions [email or web address] Not available 09/18/2014 17:05:10 04/16/2015 [id number] epilepsy: care instructions campadu Not available 04/16/2015 16:05:30 06/12/2015 [id number] stroke: care instructions [email or web address] Not available 06/13/2015 12:21:31 epilepsy: care instructions [email or web address] Not available 06/13/2015 12:21:31 learning about high blood pressure [email or web address] Not available 06/13/2015 12:21:31 Reason for Referral None Reported. Results Created Date Observation Date Name Description Value Unit Range Abnormal Flag Note LastModifiedBy Organization Detail LastModifiedTime 06/12/19 16 06/12/2015 CBC w/ auto diff WBC 5.9 K/uL 3.4-10 .8 Not Available [facility] (Lab) [address] [place], [address], 06/12/2015 19:52:35 06/12/19 16 06/12/2015 CBC w/ auto diff red blood count 4.6 M/uL 4.5-6. 3 Not Available [facility] (Lab) [address], [place], [address], 06/12/2015 19:52:35 06/12/19 16 06/12/2015 CBC w/ auto diff hemoglobin 14.7 g/dL 13.5-1 7.5 Not Available [facility] (Lab) [address] [place], [address], 06/12/2015 19:52:35 06/12/19 16 06/12/2015 CBC w/ auto diff hematocrit 44.5 % 40.0-5 2.0 Not Available [facility] (Lab) [address] [place], [address], 06/12/2015 19:52:35 06/12/19 16 06/12/2015 CBC w/ auto diff MCV 97 fL 80-95 high Not Available [facility] (Lab) [address] [place], [address], 06/12/2015 19:52:35 06/12/19 16 06/12/2015 CBC w/ auto diff MCH 32 pg 27-32 Not Available [facility] (Lab) [address] [place], [address], 06/12/2015 19:52:35 06/12/19 16 06/12/2015 CBC w/ auto diff MCHC 33 g/dL 32-36 Not Available [facility] (Lab) [address] [place], [address], 06/12/2015 19:52:35 06/12/19 16 06/12/2015 CBC w/ auto diff platelets 219 K/uL 155-37 9 Not Available [facility] (Lab) [address] [place], [address], 06/12/2015 19:52:35 06/12/19 16 06/12/2015 CBC w/ auto diff RDW 11.6 % 11.5-1 4.5 Not Available [facility] (Lab) [address] [place], [address], 06/12/2015 19:52:35 06/12/19 16 06/12/2015 CBC w/ auto diff MPV 11.1 fL 8.9-12 .7 Not Available [facility] (Lab) [address] [place], [address], 06/12/2015 19:52:35 06/12/19 16 06/12/2015 CBC w/ auto diff neutrophils absolute 2.5 K/uL 1.4-7. 0 Not Available [facility] (Lab) [address] [facility], [place], [address], 06/12/2015 19:52:35 06/12/19 16 06/12/2015 CBC w/ auto diff lymphs (absolute) 2.6 K/uL 0.7-3. 1 Not Available [facility] (Lab) [address] [facility], [place], [address], 06/12/2015 19:52:35 06/12/19 16 06/12/2015 CBC w/ auto diff monocytes (absolute) 0.5 K/uL 0.1-0. 9 Not Available [facility] (Lab) [address] [place], [address], 06/12/2015 19:52:35 06/12/19 16 06/12/2015 CBC w/ auto diff eos (absolute) 0.2 K/uL 0.0-0. 4 Not Available [facility] (Lab) [address] [place], [address], 06/12/2015 19:52:35 06/12/19 16 06/12/2015 CBC w/ auto diff baso (absolute) 0.0 K/uL 0.1-0. 3 low Not Available [facility] (Lab) [address] [facility], [place], [address], 06/12/2015 19:52:35 06/12/19 16 06/12/2015 CBC w/ auto diff neut % 43.1 % 40.0-7 4.0 Not Available [facility] (Lab) [address] [place], [address], 06/12/2015 19:52:35 06/12/19 16 06/12/2015 CBC w/ auto diff lymphs % 44.6 % 14.0-4 6.0 Not Available [facility] (Lab) [address] [place], [address], 06/12/2015 19:52:35 06/12/19 16 06/12/2015 CBC w/ auto diff mono % 8.7 % 4.0-12 .0 Not Available [facility] (Lab) [address], [place], [address], 06/12/2015 19:52:35 06/12/19 16 06/12/2015 CBC w/ auto diff eos % 3 % <=5 Not Available [facility] (Lab) [address], [place], [address], 06/12/2015 19:52:35 06/12/19 16 06/12/2015 CBC w/ auto diff baso % 0.2 % 0.1-1. 1 Not Available [facility] (Lab) [address] [facility] [place], [address], 06/12/2015 19:52:35 06/12/19 16 06/13/2015 HbA1c (hemo globi n A1c), blood hemoglobin A1C 5.4 % 4.8-5. 6 . Pre-d iabet es: 5.7 - 6.4 Diabe ivet: >6.4 Glyce [place] contr ol for adult s with diabe ivet: <7.0 Not Available [facility] (Lab) [address], [place], [address], 06/13/2015 04:12:44 06/12/19 16 06/13/2015 T4, total , serum thyroxine T4 4.7 ug/dL 4.5-12 .0 Not Available [facility] (Lab) [address] [place], [address], 06/13/2015 05:19:09 06/12/19 16 06/13/2015 CMP, serum or plasm a glucose, serum 98 mg/dL 65-99 Not Available [facility] [address], [place], [address], 06/13/2015 05:19:11 06/12/19 16 06/13/2015 CMP, serum or plasm a BUN 7 mg/dL 6-24 Not Available [facility] (Lab) [address], [place], [address], 06/13/2015 05:19:11 06/12/19 16 06/13/2015 CMP, serum or plasm a creatinine, serum 0.78 mg/dL 0.76-1 .27 Not Available [facility] (Lab) [address], [place], [address], 06/13/2015 05:19:11 06/12/19 16 06/13/2015 CMP, serum or plasm a eGFR if nonafricn AM 102 mL/mi n/1.7 3 >59 Not Available [facility] (Lab) [address], [place], [address], 06/13/2015 05:19:11 06/12/19 16 06/13/2015 CMP, serum or plasm a eGFR if 118 mL/mi n/1.7 3 >59 Not Available [facility] (Lab) [address], [place], [address], 06/13/2015 05:19:11 06/12/19 16 06/13/2015 CMP, serum or plasm a BUN/creatini ne ratio 9 9-20 Not Available [facility] (Lab) [address], [place], [address], 06/13/2015 05:19:11 06/12/19 16 06/13/2015 CMP, serum or plasm a sodium, serum 141 mmol/ L 134-14 4 Not Available [facility] (Lab) [address] [place], [address], 06/13/2015 05:19:11 06/12/19 16 06/13/2015 CMP, serum or plasm a potassium, serum 4.5 mmol/ L 3.5-5. 2 Not Available [facility] (Lab) [address], [place], [address], 06/13/2015 05:19:11 06/12/19 16 06/13/2015 CMP, serum or plasm a chloride, serum 101 mmol/ L 97-108 Not Available [facility] (Lab) [address] [place], [address], 06/13/2015 05:19:11 06/12/19 16 06/13/2015 CMP, serum or plasm a carbon dioxide, total 23 mmol/ L 18-29 Not Available [facility] (Lab) [address], [place], [address], 06/13/2015 05:19:11 06/12/19 16 06/13/2015 CMP, serum or plasm a calcium, serum 9.5 mg/dL 8.7-10 .2 Not Available [facility] (Lab) [address], [place], [address], 06/13/2015 05:19:11 06/12/1906/13/2015 CMP, serum or plasm a protein total serum 7.2 g/dL 6.0-8. 5 Not Available [facility] (Lab) [address], [place], [address], 06/13/2015 05:19:11 06/12/1906/13/2015 CMP, serum or plasm a albumin, serum 4.5 g/dL 3.5-5. 5 Not Available [facility] (Lab) [address], [place], [address], 06/13/2015 05:19:11 06/12/19 16 06/13/2015 CMP, serum or plasm a globulin total 2.7 g/dL 1.5-4. 5 Not Available [facility] (Lab) [address], [place], [address], 06/13/2015 05:19:11 06/12/1906/13/2015 CMP, serum or plasm a A/G ratio 1.7 1.1-2. 5 Not Available [facility] (Lab) [address], [place], [address], 06/13/2015 05:19:11 06/12/1906/13/2015 CMP, serum or plasm a bilirubin total <0.2 mg/dL 0.0-1. 2 Not Available [facility] (Lab) [address] [place], [address], 06/13/2015 05:19:11 06/12/19 16 06/13/2015 CMP, serum or plasm a alkaline phosphatase ser 105 IU/L 39-117 Not Available [facility] (Lab) [address], [place], [address], 06/13/2015 05:19:11 06/12/19 16 06/13/2015 CMP, serum or plasm a AST (SGOT) 20 IU/L 0-40 Not Available [facility] (Lab) [address] [place], [address], 06/13/2015 05:19:11 06/12/19 16 06/13/2015 CMP, serum or plasm a ALT (SGPT) 18 IU/L 0-44 Not Available [facility] (Lab) [address] [place], [address], 06/13/2015 05:19:11 06/12/19 16 06/13/2015 TSH, serum or plasm a TSH 2.010 uIU/m L 0.450- 4.500 Not Available [facility] (Lab) [address] [place], [address], 06/13/2015 05:19:12 06/12/19 16 06/13/2015 PSA, serum [...] t be inter prete d as absol napaimute evide nce of the prese nce or absen ce of truong mena . Not Available [facility] (Lab) [address] [place], [address], 06/13/2015 05:19:13 06/12/19 16 06/13/2015 lipid panel w/ direc t LDL, serum cholesterol, total 215 mg/dL 100-19 9 high Not Available [facility] (Lab) [address] [place], [address], 06/13/2015 05:19:14 06/12/19 16 06/13/2015 lipid panel w/ direc t LDL, serum triglyceride s 73 mg/dL 0-149 Not Available [facility] (Lab) [address] [place], [address], 06/13/2015 05:19:14 06/12/19 16 06/13/2015 lipid panel w/ direc t LDL, serum HDL cholesterol 85 mg/dL >39 Accor ding to ATP-I II Guide lines , HDL-C >59 mg/dL is consi dered a negat phan risk facto r for CHD. Not Available [facility] (Lab) [address] [place], [address], 06/13/2015 05:19:14 06/12/19 16 06/13/2015 lipid panel w/ direc t LDL, serum VLDL cholesterol margarita 15 mg/dL 5-40 Not Available [facility] (Lab) [address] [place], [address], 06/13/2015 05:19:14 06/12/19 16 06/13/2015 lipid panel w/ direc t LDL, serum LDL cholesterol calc 115 mg/dL 0-99 high Not Available [facility] (Lab) [address] [place], [address], 06/13/2015 05:19:14 06/12/19 16 06/13/2015 lipid panel w/ direc t LDL, serum lipid calculation Not Available [facility] (Lab) [address] [place], [address], 06/13/2015 05:19:14 09/22/19 15 09/21/2014 imagi ng/di agnos tic resul t No observ ation record ed. [address] , [place], [address], 09/30/2014 11:19:53 09/26/19 15 imagi ng/di agnos tic resul t No observ ation record ed. [email or web address] Not Available 2014 11:08:28 10/01/19 15 09/27/2014 imagi ng/di agnos tic resul t No observ ation record ed. [address] [place], [address], 10/03/2014 11:08:29 11/09/19 15 11/08/2014 imagi ng/di agnos tic resul t No observ ation record ed. [email or web address] Not Available 2014 15:10:11 12/02/19 15 12/01/2014 imagi ng/di agnos tic resul t No observ ation record ed. [email or web address] Not Available 2014 10:38:41 01/03/20 15 12/31/2014 imagi ng/di agnos tic resul t No observ ation record ed. [facility] (Rad) [address] [place], [address], 01/02/2015 09:50:17 01/07/20 15 01/05/2015 imagi ng/di agnos tic resul t No observ ation record ed. [email or web address] [facility], [place], [address], 01/06/2015 09:32:38 03/10/20 15 03/10/2015 imagi ng/di agnos tic resul t No observ ation record ed. [email or web address] [facility] (Rad) [address] [place], [address], 03/10/2015 12:50:58 03/11/20 15 03/11/2015 CV EKG 12 lead MOJGAN TABOR MD: KIRILL ANN MD 6905 ACCT: [id number] ADMIT/ SERVIC E DATE: DISCHA RGE DATE: : 1959 PT TYPE: ADM IN SEX: M ORD SITE: [address] TEST DATE: 2014-05 PAT NAME: MOJGAN TABOR DEPART MENT: CARD 40 PATIEN T ID: [id number] ROOM: [facility] GENDER : MALE TECHNI MARIA ISABEL: CDN : 01-[address] BY: CADE ANN ORDER NUMBER : [id number] CJ Lu MD: FELIPE SELF MEASUR EMENTS INTERV ALS AXIS RATE: 145 P: 81 HI: 118 QRS: 19 QRSD: 82 T: 70 QT: 282 QTC: 438 INTERP RETIVE STATEM ENTS SINUS TACHYC ARDIA WITH SHORT HI INTERV AL WITH OCCASI ONAL VENTRI CULAR PREMAT URE COMPLE XES WITH OCCASI ONAL SUPRAV ENTRIC ULAR AMBER SEPTAL MYOCAR DIAL INFARC TION, PROBAB LY OLD NONSPE CIFIC ST SEGMEN T ABNORM ALITIE S, CANNOT RULE OUT ISCHEM IA ELECTR ONICAL LY SIGNED BY FELIPE SELF AT 17:03: 07 CDT [facility], [place], [address], 05/07/2015 04:08:47 03/11/20 15 03/11/2015 xr chest 1 view alejandraMOJGAN Hester 6905 ADMIT/ SERVIC E DATE: ACCT: [id number] DISCHA RGE DATE: : 1959 SEX: M ORD SITE: [facility] PT TYPE: ADM IN JING MUHAMMAD MD: KIRILL ANN MD STUDY DATE REPORT # ORDER # EXT ORDER ID [id number] 1.002 PROC CODE: [id number] ORT PROCED URE DESCRI PTION: XR CHEST 1 VIEW PORTAB LE I MPRESS ION: NO ACUTE INFILT RATE. EXAMIN ATION: PORTAB LE CHEST X-RAY 1 VIEW ACCESS ION: [id number] EXAM DATE/T TRAVON: 2014 8:36 PM CLINIC [...] SIGNED BY: MARYBEL CROUCH ER10/07/2014 8:54 PM [facility], [place], [address], 05/07/2015 04:08:47 03/12/20 15 03/12/2015 MRI brain wo MOJGAN TABOR 6905 ADMIT/ SERVIC E DATE: ACCT: [id number] DISCHA RGE DATE: : 1959 SEX: M ORD SITE: [facility] PT TYPE: ADM IN BRANDONI SABINA MD: KIRILL ANN MD STUDY DATE REPORT # ORDER # EXT ORDER ID [id number] 1.001 PROC CODE: BRNWOC PROCED URE DESCRI [...] BRAIN WITHOU T CONTRA ST. ACCESS ION: [id number] EXAM DATE/T TRAVON: 2014 11:23 AM CLINIC [...] SIGNED BY: CADE GRAY 11:51 AM build [facility], [place], [address], 05/07/2015 04:08:47 06/19/19 16 06/19/2015 imagi ng/di agnos tic resul t No observ ation record ed. [email or web address] Not Available 2015 09:33:44 06/19/19 16 06/19/2015 imagi ng/di agnos tic resul t No observ ation record ed. [facility] (Lab) [address] [place] [address] , [place], [address], 06/19/2015 09:33:44 06/19/19 16 06/19/2015 imagi ng/di agnos tic resul t No observ ation record ed. [facility] (Lab) [address] [place] [address] [place], [address], 06/20/2015 09:57:26 06/20/19 16 06/19/2015 imagi ng/di agnos tic resul t No observ ation record ed. [address] [place], [address], 06/20/2015 10:01:56 05/09/20 19 05/09/2019 , les aldana id arter y No observ ation record ed. [address] [place], [address], 05/09/2019 17:59:20 Result Notes None recorded. Problems Name Problem SNOMED Code Status Onset Date Resolution Date Notes Provider Name and Address Organization Details Recorded Time Low back pain 111253255 Active Burke Ann MD Attn: Zulemalivia lu,[address] [facility], [place], [address], [place] [facility] 5 16:09:38 Essential hypertension 01150487 Active Burke Ann MD Attn: Austin tabitha,[address] [facility], [place], [address], [place] [facility] 6 18:34:53 Anxiety 83021817 Active Burke Ann MD Attn: Austin lu,[address] [facility], [place], [address], [place] [facility] 5 15:03:30 Laceration - injury 912122791 Active Burke Ann MD Attn: Zulemalivia lu,[address] [facility], [place], [address], [place] [facility] 5 15:31:20 Seizure disorder 961600539 Active Burke Ann MD Attn: [place] tabitha,[address] [facility], [place], [address], [place] [facility] 6 18:34:53 Cerebrovascula r accident 614701272 Active Burke Ann MD Attn: [place] tabitha,[address] [facility], [place], [address], [place] [facility] 6 18:34:53 Insomnia 008160457 Active Burke Ann MD Attn: [place] lu,[address] [facility], [place], [address], [place] [facility] 5 15:31:20 Problem Notes None recorded. Procedures Surgical History None recorded. Imaging Results Imaging Date Name Status LastModified by Organiz ation Details LastModified Time 09/21/2014 imaging/diagn ostic result completed [address] [place], [address], 09/30/2014 11:19:53 09/25/2014 imaging/diagn ostic result completed Information not available 10/03/2014 11:08:28 09/27/2014 imaging/diagn ostic result completed [address] [place], [address], 10/03/2014 11:08:29 11/08/2014 imaging/diagn ostic result completed Information not available 11/11/2014 15:10:11 12/01/2014 imaging/diagn ostic result completed [email or web address] Information not available 12/02/2014 10:38:41 12/31/2014 imaging/diagn ostic result completed [email or web address] [facility] ([facility]) [address] [place], [address], 01/02/2015 09:50:17 01/05/2015 imaging/diagn ostic result completed [email or web address] [place], [address], 01/06/2015 09:32:38 03/10/2015 imaging/diagn ostic result completed [email or web address] [facility] (Rad) [address] [place], [address], 03/10/2015 12:50:58 03/11/2015 CV EKG 12 [place], [address], 05/07/2015 04:08:47 03/11/2015 xr chest 1 [place], [address], 05/07/2015 04:08:47 03/12/2015 [place], [address], 05/07/2015 04:08:47 06/19/2015 imaging/diagn ostic result completed [email or web address] Information not available 06/19/2015 09:33:44 06/19/2015 imaging/diagn ostic result completed [facility] (Lab) [address] [place] [address] [place], [address], 06/19/2015 09:33:44 06/19/2015 imaging/diagn ostic result completed [facility] (Lab) [address] [place] [address] [place], [address], 06/20/2015 09:57:26 06/19/2015 imaging/diagn ostic result completed [address] [place], [address], 06/20/2015 10:01:56 05/09/2019 US, duplex, carotid artery completed [address] [place], [address], 05/09/2019 17:59:20 Procedure Notes None recorded. Medical [...] Details Last Updated DateTime 5 22 /min 55639.9 52658 g 98.7 [degF] 170.18 cm 21.4 kg/m2 80 /min 148 mm[Hg] 94 mm[Hg] Leonor Arauz MA [facility] 5 15:57:48 Date Recorded Body height Body mass index (BMI) Body weight Heart rate Respiratory rate Body temperature Systolic blood pressure Diastolic blood pressure Provider Name and Address Organization Details Last Updated DateTime 5 170.18 cm 21.5 kg/m2 79242.1 5469 g 88 /min 20 /min 98.2 [degF] 132 mm[Hg] 80 mm[Hg] Fior Pereyra MA [facility] 5 12:08:47 Date Recorded Body temperature Body height Body mass index (BMI) Heart rate Respiratory rate Body weight Systolic blood pressure Diastolic blood pressure Provider Name and Address Organization Details Last Updated DateTime 5 97.9 [degF] 175.26 cm 20.2 kg/m2 78 /min 18 /min 93418.1 5469 g 142 mm[Hg] 90 mm[Hg] Jeannasunitha Luan [facility] 5 13:46:55 Date Recorded Heart rate Body height Respiratory rate Body mass index (BMI) Body weight Body temperature Systolic blood pressure Diastolic blood pressure Provider Name and Address Organization Details Last Updated DateTime 6 92 /min 170.18 cm 20 /min 21.5 kg/m2 35978.1 5469 g 98 [degF] 102 mm[Hg] 78 mm[Hg] Leonor Arauz MA [facility] 6 16:31:07 Social History None recorded. Functional Status None recorded. Mental Status None recorded. Family History Relationship Description Onset Age of this Age Resolved Age Notes LastModified by Organization Details LastModified Time Mother Heart disease 59 [email or web address] Not available 2015 16:32:53 Medical History Condition Response Coronary Artery Disease N Other N Atrial Fibrillation N High Blood Pressure Y Thyroid Problems N Kidney or Bladder Problems N Depression N COPD N Blood Clots N GI Problems N Skin Problems N Anemia N Heart Attack ([place]) N Diabetes N Anxiety Disorder Y Muscle, Joint, or Bone Problems N Seizures/Epilepsy Y Acid Reflux (GERD) N Cancer N Stroke Y Allergies N Asthma N High Cholesterol N Hepatitis N Liver Disease N Headaches Y Osteoporosis N Heart Failure N Past Encounters Encounter ID Performer Location Encounter Start Date Encounter Closed Date Diagnosis/Indication Diagnosis SNOMED-CT Code Diagnosis ICD10 Code Diagnosis Note [id number] Jeannie Sherman RN [facility] (Adult/Fa m Med) [address] [place] [phone] 06/10/2014 13:26:21 06/10/2014 18:13:06 Laceration - injury 031042268 Seizure disorder 430401497 Cerebrovas cular accident 679558041 Insomnia 389463052 [id number] Nata Albert LPN [facility] (Adult/Fa m Med) [address] [place] [phone] 09/18/2014 14:45:50 09/18/2014 18:01:22 Seizure disorder 098333851 Anxiety 92906383 Low back pain 133357458 [id number] Crystal Toy [facility] (Adult/Fa m Med) [address] [place] [phone] 04/16/2015 11:24:38 04/16/2015 17:33:17 Essential hypertension 36083653 I10 Anxiety 93456365 F41.9 Seizure disorder 1878602 02 G40.909 [id number] Dotty Peace [facility] (Adult/Fa m Med) [address] [place] [phone] 06/12/2015 15:25:04 06/27/2015 12:04:51 Essential hypertension 81035446 I10 Seizure disorder 1222415 02 G40.909 Cerebrovas cular accident 178824153 I63.9 Health Concerns Section Related Observation LastModified by Organization Detai ls LastModified Time None Recorded Concern Status LastModified by Organization Details LastModified Time None Recorded Advance Directives Directive None Recorded Payers Encounter Date Sequence Insurance Name Policy Number Policy Gilbert Covered Member ID Gilbert Member ID Guarantor Name 06/10/2014 1 [facility] PRIOR TO 11/27/2020 (MEDICAID REPLACEMENT - HMO) Mojgan Tabor [id number] Mojgan Tabor 09/18/2014 1 [facility] PRIOR TO 11/27/2020 (MEDICAID REPLACEMENT - HMO) Mojgan Tabor [id number] Mojgan Tabor 04/16/2015 1 [facility] PRIOR TO 11/27/2020 (MEDICAID REPLACEMENT - HMO) Mojgan Tabor [id number] Mojgan Tabor 06/12/2015 1 [facility] PRIOR TO 11/27/2020 (MEDICAID REPLACEMENT - HMO) Mojgan Tabor [id number] Mojgan Tabor Notes Date Note Type Note Provider Name and Address Organization Details Recorded Time 04/16/2015 text/html FOLLOW up care since stroke Burke Ann MD Attn: [employer] [place], [address], [place] [facility] 04/16/2015 15:03:31
--- OUTSIDE RECORDS SUMMARY | 2024-08-22 02:16 | XMS_ITS | Encounter Summary ---
Author Organization [facility] Address [address] [place] [address] Care Team Providers Care Lathe Set Up Operator Name Role Phone Frank Toure MD Unavailable Kayla Porras BOOT TRIMMER Primary Care Provider [phone] Misael Maradiaga DO Primary Care Provider [phone] Joyce Luevano BOOT TRIMMER Primary Care Provider Unavaila Marielena Adame MD Primary Care Provider [phone] Encounter Details Date Type Department Care Team (Latest Contact Info) Description 02/01/2018 Abstract [facility] , Jerica Cordon MD [...] on filedocumented in this encounter Care Teams Lathe Set Up Operator Relationship Specialty Start Date End Date Kayla Porras NP [address] [place] [address] PCP - General 06/25/16 09/27/18 Misael Maradiaga DO [address] [place] [address] PCP - General FAMILY PRACTICE 09/28/18 01/13/20 Joyce L[place] [address] PCP - General NURSE PRACTITIONER 01/14/20 10/26/23 Marielena Smallwood MD [address] [place] [id number] PCP - General FAMILY PRACTICE 10/27/23 Frank Toure MD [facility] [place] [address] [place] Tone Artist Apprentice CARDIOVASCULAR DISEASE 05/30/16 documented as of this encounter
--- OUTSIDE RECORDS SUMMARY | 2024-08-22 02:17 | XMS_ITS | Encounter Summary ---
Author Organization [facility] Address [address] [place] [address] Care Team Providers Care Community Organizer Name Role Phone Frank Toure MD Unavailable Joyce Luevano NP Primary Care Provider Unavaila Marielena Adame MD Primary Care Provider [phone] Encounter Details Date Type Department Care Team (Late st Contact Info) Description 02/23/2022 imaginet Message Enc [facility] Medical [facility] Family Medicine - [address] [address] Joyce Luevano, SCOREKEEPER [employer] Social History Tobacco Use Types Packs/Day Years [...] 11:25 AM CDT Message sent through other [employer] chart message * Yonatan Rodriguez RN - 02/23/2022 10:24 AM CDT Please see note. Thanks documented in this encounter Plan of Treatment Not on file documented as of this encounter Visit Diagnoses Not on filedocumented in this encounter Care Teams Community Organizer Relationship Specialty Start Date End Date Joyce Luevano NP [address] [place] [address] PCP - General NURSE PRACTITIONER 01/14/20 10/26/23 Marielena Smallwood MD [address] [place] [id number] PCP - General FAMILY PRACTICE 10/27/23 Frank Toure MD [address] [place] [address] [place] Air Conditioning Manager CARDIOVASCULAR DISEASE 05/30/16 documented as of this encounter
--- OUTSIDE RECORDS SUMMARY | 2024-08-22 02:17 | XMS_ITS | Clinical Summary ---
Author Organization [facility] Address [address] [place] [address] Care Team Providers Care Echo Vascular Technologist Name Role Phone Marielena Smallwood MD Primary [...] 06/28/2024 Assessment & Plan (06/28/2024 11:42 AM X RAY SERVICE TECHNICIAN): Now back on full TF's sugars running mildly high. Monitor with q4 accuchecks and SSI. Hypophosphatemia 06/27/2024 Assessment & Plan (06/28/2024 11:44 AM X RAY SERVICE TECHNICIAN): <0.7 ? 2/2 refeeding syndrome. Started on neutraphos 2pkg QID 06/26. Still Phos<0.7 06/27. Tx with IV NaPhos 30mmoles and cont per tube replacement and monitor closely. -06/28: Phos=3.3, reduce nuetraphos to 1 PKG BID and monitor History of DVT (deep vein thrombosis) 06/26/2024 Assessment & Plan (06/26/2024 1:32 PM X RAY SERVICE TECHNICIAN): -On anticoagulation with Eliquis 5 mg po BID for hx of DVT -per chart review hx of Left Subclavian vein DVT diagnosed 08/01/23 H/O: GI bleed 06/25/2024 Assessment & Plan (06/26/2024 1:32 PM X RAY SERVICE TECHNICIAN): - recent admission at [facility] ( 06-07-24 [...] 06/25/2024 Assessment & Plan (06/26/2024 1:36 PM X RAY SERVICE TECHNICIAN): Tracheostomy dependence, has a Shiley #4 cuffed. Pt followed at [facility], per notes trach in place for pulmonary toilet due to his copious secretions and ongoing aspiration of his secretions. -needing frequent suctioning -sats stable on 28% FIO2 by HHTC -Was getting VEST at [facility] Low grade fever 06/20/2024 Assessment & Plan (06/26/2024 1:34 PM X RAY SERVICE TECHNICIAN): Low-grade fever and tachycardia, softer BP after [...] 06/17/2024 Assessment & Plan (06/28/2024 11:43 AM X RAY SERVICE TECHNICIAN): -patient at admission with a G tube, was getting continous tube feedings at [facility] and not tolerating, -was changed to [...] off and pt had 19 Citizen Of [place] G tube placed at [facility] ED on 04/21/24 (records on care everywhere)and after that he has not tolerated well tube feedings per discussion with his sister Ms Hilliard,Adriane [phone] POA - consulted IR 06-20-24 for conversion [...] goal 06/25, adjust FWF per hydration status, travel attendants to follow up -On full TF's-osmolite 1.5. Phos repleted. Copious oral secretions 06/13/2024 Assessment & Plan (06/26/2024 1:29 PM X RAY SERVICE TECHNICIAN): Patient on chronic glycopyrrolate due to secretions, held at admission 2/ to potential for constipation with plan to add back when he's had a bowel movements -resume on 06-19- hold on 06-20 due to somnolence. Suction PRN - restart glycopyrrolate 1mg BID 06/26 and monitor Abdominal pain 06/12/2024 Assessment & Plan (06/26/2024 1:23 PM X RAY SERVICE TECHNICIAN): -p/w abdominal distention from SNF to ED on 06-12 ,reported biliary emesis per skilled nursing (approximately 300 cc) , not associated fevers or change in bowel habits. Feeding tube placed to gravity drainage in ED H&P notes regular bowel movements. CT scan on 06-12 in ED with stool in the rectum and sigmoid. Compton likely constipation contributing to the patient's abdominal [...] 06/12/2024 Assessment & Plan (06/26/2024 12:08 AM X RAY SERVICE TECHNICIAN): Complicated by left LE AKA. History of CVA (cerebrovascular accident) 2020 Assessment & Plan (06/26/2024 1:32 PM X RAY SERVICE TECHNICIAN): - hx of RT parietal CVA- hx of dementia Cont asa and statin Essential hypertension 12/11/2020 Assessment & Plan (06/26/2024 1:30 PM X RAY SERVICE TECHNICIAN): - on metoprolol and norvasc, held with soft BP 06-19 - resume metoprolol 06-21 -resume amlodipine 06-22 - Monitor Hyperlipidemia 12/11/2020 Assessment & Plan (06/12/2024 3:47 PM X RAY SERVICE TECHNICIAN): - Continue home statin Seizure 12/10/2020 Assessment & Plan (06/26/2024 1:36 PM X RAY SERVICE TECHNICIAN): History of seizure disorder secondary to traumatic brain injury. Currently on valproate, Vimpat, Keppra and Cobazam - Continue home medication, valproate level low at admit 48 on 06-12, 48 on 06-13, Valproic acid level 76 06-19 prior to dose, lacosamide level 1.4 on 06/12, 9.6 on 06-19 Followed by Neurology at [facility] Cognitive communication deficit 08/25/2020 Cerebrovascular accident [...] Department Care Team Description 07/09/2024 7:23 PM X RAY SERVICE TECHNICIAN - 07/09/2024 11:59 PM X RAY SERVICE TECHNICIAN Hospital Encounter AMBULANCE BILLING [address] [place] [address] Discharge Disposition: Discharge to home or self care 07/08/2024 7:52 PM X RAY SERVICE TECHNICIAN - 07/09/2024 7:48 AM [facility] Emergency [facility] Emergency Department [address] [place] [address] Tri Martinez MD Thomas, Jenna Marie, MD Tracheostomy complication, unspecified complication type (HCC) (Primary Dx); Balanitis Discharge Disposition: Discharge to home or self care 06/12/2024 10:26 AM X RAY SERVICE TECHNICIAN - 06/28/2024 5:25 PM X RAY SERVICE TECHNICIAN Hospital Encounter [facility] [address] [place] [address] Shakila Jung MD Choi, Cheuk Ho Jeffrey, [...] h recurrent seizures (HCC) Followed up at [facility] ([facility]) Degenerative cervical spinal stenosis Family History Medical History Relation Name Comments Coronary artery disease Father Stroke Father Hypertension Mother Relation Name Status Comments Father Mother Social History Tobacco Use Types Packs/Day Years Used Date Smoking Tobacco: Former Cigarettes Smokeless Tobacco: Current Tobacco Cessation:Counseling Given: Yes [facility] Utilities Answer Date Recorded In the [...] often do you attend chur ch or orthodoxy services? Never 06/18/2024 Do you belong to any clubs o r organizations such as rastafari groups, unions, fraternal or athletic groups, or [...] any time in the past 12 m [facility], were you homeless or living in a longterm (including now)? No 06/18/2024 Personal Safety Answer Date Recorded Have you ever been in or are you currently in a harmful physical or emotional relationship or is someone making you feel afraid or unsafe? Denies 07/08/2024 Sex and Gender Information Value Date Recorded Sex Assigned at Not on file Legal Sex Male 6:11 AM X RAY SERVICE TECHNICIAN Gender Identity Not on file Sexual Orientation Not on file Obstetrics History Last Filed Vital Signs Vital Sign Reading Time Taken Comments Blood Pressure 145/83 07/09/2024 6:00 AM X RAY SERVICE TECHNICIAN Pulse 91 07/09/2024 6:00 AM X RAY SERVICE TECHNICIAN Temperature 36.5 C (97.7 F) 07/09/2024 6:31 AM X RAY SERVICE TECHNICIAN Respiratory Rate 10 07/09/2024 6:00 AM X RAY SERVICE TECHNICIAN Oxygen Saturation 100% 07/09/2024 6:00 AM X RAY SERVICE TECHNICIAN Inhaled Oxygen Concentration - - Weight 79.8 kg (176 lb) 07/09/2024 2:16 AM X RAY SERVICE TECHNICIAN Height 182.9 cm (6') 07/09/2024 2:16 AM X RAY SERVICE TECHNICIAN Body Mass Index 23.87 07/09/2024 2:16 AM X RAY SERVICE TECHNICIAN Plan of Treatment Health Maintenance Due Date [...] COMMUNITY SCREENING-ISSA ELIGIBLE STAT 07/09/2024 5:32 AM X RAY SERVICE TECHNICIAN SEPSIS LACTATE WITH REFLEX Timed 07/09/2024 4:33 AM X RAY SERVICE TECHNICIAN ED PERIPHERAL LINE INSERTION Routine 07/09/2024 1:18 AM X RAY SERVICE TECHNICIAN SEPSIS LACTATE WITH REFLEX Timed 07/09/2024 1:15 AM X RAY SERVICE TECHNICIAN RPR STAT 07/09/2024 1:15 AM X RAY SERVICE TECHNICIAN N. GONORRHOEAE/C. TRACHOMATIS AMPLIFICATION STAT 07/09/2024 1:02 AM X RAY SERVICE TECHNICIAN URINALYSIS AND REFLEX TO MICROSCOPIC AND CULTURE STAT 07/09/2024 1:02 AM X RAY SERVICE TECHNICIAN ED PERIPHERAL LINE INSERTION Routine 07/08/2024 10:11 PM X RAY SERVICE TECHNICIAN CT CHEST ABDOMEN PELVIS W CONTRAST ED 07/08/2024 9:55 PM X RAY SERVICE TECHNICIAN EGFR STAT 07/08/2024 8:56 PM X RAY SERVICE TECHNICIAN DIFFERENTIAL AUTO STAT 07/08/2024 8:5 6 PM X RAY SERVICE TECHNICIAN SEPSIS LACTATE WITH REFLEX STAT 07/08/2024 8:56 PM X RAY SERVICE TECHNICIAN LIPASE STAT 07/08/2024 8:56 PM X RAY SERVICE TECHNICIAN COMPREHENSIVE METABOLIC PANEL STAT 07/08/2024 8:56 PM X RAY SERVICE TECHNICIAN CBC WITH AUTO DIFFERENTIAL STAT 07/08/2024 8:56 PM X RAY SERVICE TECHNICIAN RESPIRATORY PATHOGEN PANEL STAT 07/08/2024 8:56 PM X RAY SERVICE TECHNICIAN ECG 12-LEAD Routine 07/08/2024 8:28 PM X RAY SERVICE TECHNICIAN XR CHEST 1 VIEW ED 07/08/2024 8:18 PM X RAY SERVICE TECHNICIAN POCT GLUCOSE DEVICE Routine 06/28/2024 4 :24 PM X RAY SERVICE TECHNICIAN POCT GLUCOSE DEVICE Routine 06/28/2024 1 2:30 PM X RAY SERVICE TECHNICIAN POCT GLUCOSE DEVICE Routine 06/28/2024 7 :43 AM X RAY SERVICE TECHNICIAN POCT GLUCOSE DEVICE Routine 06/28/2024 4 :01 AM X RAY SERVICE TECHNICIAN POCT GLUCOSE DEVICE Routine 06/27/2024 1 1:28 PM X RAY SERVICE TECHNICIAN EGFR Routine 06/27/2024 9:30 PM X RAY SERVICE TECHNICIAN PHOSPHORUS Routine 06/27/2024 9:30 PM X RAY SERVICE TECHNICIAN MAGNESIUM Routine 06/27/2024 9:30 PM X RAY SERVICE TECHNICIAN BASIC METABOLIC PANEL Routine 06/27/2024 9:30 PM X RAY SERVICE TECHNICIAN POCT GLUCOSE DEVICE Routine 06/27/2024 8 :39 PM X RAY SERVICE TECHNICIAN POCT GLUCOSE DEVICE Routine 06/27/2024 5 :10 PM X RAY SERVICE TECHNICIAN POCT GLUCOSE DEVICE Routine 06/27/2024 4 :27 PM X RAY SERVICE TECHNICIAN POCT GLUCOSE DEVICE Routine 06/27/2024 1 :06 PM X RAY SERVICE TECHNICIAN POCT GLUCOSE DEVICE Routine 06/27/2024 9 :59 AM X RAY SERVICE TECHNICIAN EGFR Routine 06/26/2024 10:21 PM X RAY SERVICE TECHNICIAN DIFFERENTIAL AUTO Routine 06/26/2024 10: 21 PM X RAY SERVICE TECHNICIAN PHOSPHORUS Routine 06/26/2024 10:21 PM X RAY SERVICE TECHNICIAN MAGNESIUM Routine 06/26/2024 10:21 PM X RAY SERVICE TECHNICIAN CBC WITH AUTO DIFFERENTIAL Routine 06/26/2024 10:21 PM X RAY SERVICE TECHNICIAN BASIC METABOLIC PANEL Routine 06/26/2024 10:21 PM X RAY SERVICE TECHNICIAN HEPATITIS B SURFACE ANTIGEN Routine 06/26/2024 10:21 PM X RAY SERVICE TECHNICIAN PHOSPHORUS Routine 06/26/2024 3:21 PM X RAY SERVICE TECHNICIAN RPR Routine 06/26/2024 3:21 PM X RAY SERVICE TECHNICIAN HEPATITIS C ANTIBODY Routine 06/26/2024 3:21 PM X RAY SERVICE TECHNICIAN HIV 1/2 ANTIBODY PLUS P24 ANTIGEN Routine 06/26/2024 3:21 PM X RAY SERVICE TECHNICIAN EGFR Routine 06/26/2024 12:16 AM X RAY SERVICE TECHNICIAN PHOSPHORUS Routine 06/26/2024 12:16 AM X RAY SERVICE TECHNICIAN MAGNESIUM Routine 06/26/2024 12:16 AM X RAY SERVICE TECHNICIAN BASIC METABOLIC PANEL Routine 06/26/2024 12:16 AM X RAY SERVICE TECHNICIAN POCT GLUCOSE DEVICE Routine 06/23/2024 1 1:36 AM X RAY SERVICE TECHNICIAN CBC WITHOUT DIFFERENTIAL Timed 06/23/2024 9:07 AM X RAY SERVICE TECHNICIAN VANCOMYCIN LEVEL TROUGH Routine 06/23/2024 9:00 AM X RAY SERVICE TECHNICIAN EGFR Routine 06/23/2024 9:00 AM X RAY SERVICE TECHNICIAN MAGNESIUM Routine 06/23/2024 9:00 AM X RAY SERVICE TECHNICIAN PHOSPHORUS Routine 06/23/2024 9:00 AM X RAY SERVICE TECHNICIAN BASIC METABOLIC PANEL Routine 06/23/2024 9:00 AM X RAY SERVICE TECHNICIAN G TO GJ-TUBE REPLACEMENT IP Routine 06/22/2024 1:24 PM X RAY SERVICE TECHNICIAN C. DIFFICILE TESTING Routine 06/21/2024 11:11 AM X RAY SERVICE TECHNICIAN INFECTION PREVENTION VRE CULTURE Routine 06/21/2024 11:10 AM X RAY SERVICE TECHNICIAN VANCOMYCIN LEVEL TROUGH Timed 06/21/2024 7:16 AM X RAY SERVICE TECHNICIAN EGFR Routine 06/21/2024 5:03 AM X RAY SERVICE TECHNICIAN DIFFERENTIAL AUTO Routine 06/21/2024 5:0 3 AM X RAY SERVICE TECHNICIAN PHOSPHORUS Timed 06/21/2024 5:03 AM X RAY SERVICE TECHNICIAN MAGNESIUM Routine 06/21/2024 5:03 AM X RAY SERVICE TECHNICIAN COMPREHENSIVE METABOLIC PANEL Routine 06/21/2024 5:03 AM X RAY SERVICE TECHNICIAN CBC WITH AUTO DIFFERENTIAL Routine 06/21/2024 5:03 AM X RAY SERVICE TECHNICIAN MSSA/MRSA (STAPHYLOCOCCUS AUREUS) CULTURE Routine 06/20/2024 10:30 PM X RAY SERVICE TECHNICIAN XR ABDOMEN AP 1 VIEW IP Routine 06/20/2024 10:29 AM X RAY SERVICE TECHNICIAN URINALYSIS, MICROSCOPIC ONLY Routine 06/19/2024 9:34 PM X RAY SERVICE TECHNICIAN URINALYSIS AND REFLEX TO MICROSCOPIC AND CULTURE Routine 06/19/2024 9:34 PM X RAY SERVICE TECHNICIAN DIFFERENTIAL AUTO Routine 06/19/2024 9:2 8 PM X RAY SERVICE TECHNICIAN CBC WITH AUTO DIFFERENTIAL Routine 06/19/2024 9:28 PM X RAY SERVICE TECHNICIAN VALPROIC ACID LEVEL, TOTAL Timed 06/19/2024 9:28 PM X RAY SERVICE TECHNICIAN LACOSAMIDE Routine 06/19/2024 9:28 PM X RAY SERVICE TECHNICIAN RESPIRATORY PATHOGEN PANEL Routine 06/19/2024 9:10 PM X RAY SERVICE TECHNICIAN AEROBIC CULTURE AND GRAM STAIN Routine 06/19/2024 6:53 PM X RAY SERVICE TECHNICIAN XR CHEST 1 VIEW IP Routine 06/19/2024 6:47 PM X RAY SERVICE TECHNICIAN RESPIRATORY PATHOGEN PANEL Routine 06/19/2024 6:46 PM X RAY SERVICE TECHNICIAN XR ABDOMEN AP 1 VIEW IP Routine 06/19/2024 4:09 PM X RAY SERVICE TECHNICIAN XR CHEST 1 VIEW IP Routine 06/19/2024 4:08 PM X RAY SERVICE TECHNICIAN EGFR Timed 06/19/2024 2:47 PM X RAY SERVICE TECHNICIAN DIFFERENTIAL AUTO Timed 06/19/2024 2:4 7 PM X RAY SERVICE TECHNICIAN PHOSPHORUS Timed 06/19/2024 2:47 PM X RAY SERVICE TECHNICIAN MAGNESIUM Timed 06/19/2024 2:47 PM X RAY SERVICE TECHNICIAN COMPREHENSIVE METABOLIC PANEL Timed 06/19/2024 2:47 PM X RAY SERVICE TECHNICIAN CBC WITH AUTO DIFFERENTIAL Timed 06/19/2024 2:47 PM X RAY SERVICE TECHNICIAN POCT GLUCOSE DEVICE Routine 06/19/2024 2 :25 PM X RAY SERVICE TECHNICIAN XR ABDOMEN AP 1 VIEW IP Routine 06/16/2024 6:16 PM X RAY SERVICE TECHNICIAN EGFR Routine 06/16/2024 12:42 PM X RAY SERVICE TECHNICIAN DIFFERENTIAL AUTO Routine 06/16/2024 12: 42 PM X RAY SERVICE TECHNICIAN PHOSPHORUS Routine 06/16/2024 12:42 PM X RAY SERVICE TECHNICIAN MAGNESIUM Routine 06/16/2024 12:42 PM X RAY SERVICE TECHNICIAN COMPREHENSIVE METABOLIC PANEL Routine 06/16/2024 12:42 PM X RAY SERVICE TECHNICIAN CBC WITH AUTO DIFFERENTIAL Routine 06/16/2024 12:42 PM X RAY SERVICE TECHNICIAN XR ABDOMEN AP 1 VIEW ED Urgent/IP Urgent 06/15/2024 1:57 AM X RAY SERVICE TECHNICIAN EGFR Routine 06/13/2024 4:59 AM X RAY SERVICE TECHNICIAN DIFFERENTIAL AUTO Routine 06/13/2024 4:5 9 AM X RAY SERVICE TECHNICIAN VALPROIC ACID LEVEL, TOTAL Routine 06/13/2024 4:59 AM X RAY SERVICE TECHNICIAN CBC WITH AUTO DIFFERENTIAL Routine 06/13/2024 4:59 AM X RAY SERVICE TECHNICIAN PHOSPHORUS Routine 06/13/2024 4:59 AM X RAY SERVICE TECHNICIAN MAGNESIUM Routine 06/13/2024 4:59 AM X RAY SERVICE TECHNICIAN COMPREHENSIVE METABOLIC PANEL Routine 06/13/2024 4:59 AM X RAY SERVICE TECHNICIAN LACOSAMIDE Routine 06/13/2024 4:59 AM X RAY SERVICE TECHNICIAN BLOOD CULTURE Routine 06/13/2024 4:59 AM X RAY SERVICE TECHNICIAN TSH Routine 06/12/2024 3:51 PM X RAY SERVICE TECHNICIAN DIFFERENTIAL AUTO Routine 06/12/2024 3:3 0 PM X RAY SERVICE TECHNICIAN CBC WITH AUTO DIFFERENTIAL Routine 06/12/2024 3:30 PM X RAY SERVICE TECHNICIAN HEMOGLOBIN A1C Routine 06/12/2024 3:30 PM X RAY SERVICE TECHNICIAN TROPONIN I HIGH-SENSITIVITY 4-HOUR Timed 06/12/2024 3:27 PM X RAY SERVICE TECHNICIAN XR CHEST 1 VIEW ED 06/12/2024 2:47 PM X RAY SERVICE TECHNICIAN URINALYSIS AND REFLEX TO MICROSCOPIC AND CULTURE STAT 06/12/2024 2:38 PM X RAY SERVICE TECHNICIAN DIFFERENTIAL AUTO STAT 06/12/2024 2:2 3 PM X RAY SERVICE TECHNICIAN CBC WITH AUTO DIFFERENTIAL STAT 06/12/2024 2:23 PM X RAY SERVICE TECHNICIAN TROPONIN I HIGH-SENSITIVITY 2-HOUR Timed 06/12/2024 1:56 PM X RAY SERVICE TECHNICIAN CT ABDOMEN PELVIS W CONTRAST ED 06/12/2024 12:22 PM X RAY SERVICE TECHNICIAN ED PERIPHERAL LINE INSERTION Routine 06/12/2024 11:50 AM X RAY SERVICE TECHNICIAN INFLUENZA A/B, RSV, AND COVID-19 PCR Routine 06/12/2024 11:39 AM X RAY SERVICE TECHNICIAN POCT CREATININE - DEVICE Routine 06/12/2024 11:29 AM X RAY SERVICE TECHNICIAN EGFR STAT 06/12/2024 11:22 AM X RAY SERVICE TECHNICIAN DIFFERENTIAL AUTO STAT 06/12/2024 11: 22 AM X RAY SERVICE TECHNICIAN TROPONIN I HIGH-SENSITIVITY SERIES (BASELINE, 2HR, 4HR, 6HR) STAT 06/12/2024 11:22 AM X RAY SERVICE TECHNICIAN LIPASE STAT 06/12/2024 11:22 AM X RAY SERVICE TECHNICIAN CBC WITH AUTO DIFFERENTIAL STAT 06/12/2024 11:22 AM X RAY SERVICE TECHNICIAN COMPREHENSIVE METABOLIC PANEL STAT 06/12/2024 11:22 AM X RAY SERVICE TECHNICIAN VALPROIC ACID LEVEL, TOTAL STAT 06/12/2024 11:22 AM X RAY SERVICE TECHNICIAN ECG 12-LEAD Routine 06/12/2024 11:01 AM X RAY SERVICE TECHNICIAN TNI WITH LIPID PANEL Routine 08/24/2017 4:57 PM CDT from Last 3 Months or Most Recently Relevant to Health Maintenance Results * POCT Rapid HIV Antibody Community Screening-Issa Eligible (07/09/2024 5:32 AM X RAY SERVICE TECHNICIAN) Rapid HIV, POC Negative Negative Lot Number [id number] QC Control Line Acceptable Blood 07/09/2024 5:32 AM X RAY SERVICE TECHNICIAN Naa Tam MD POINT OF CARE TEST ORDER NICHOLE Final Result * Sepsis Lactate w/ Reflex (07/09/2024 4:33 AM X RAY SERVICE TECHNICIAN) Pathologist [facility] Sepsis Lactate 2.0 0.7 - 2.0 mmol/L Blood 07/09/2024 4:33 AM X RAY SERVICE TECHNICIAN 07/09/2024 4:42 AM X RAY SERVICE TECHNICIAN us Naa Tam MD LAB BLOOD ORDERABLES Fin al Result Performing Organization Address City/State/[facility] Co de Phone Number [facility] [place] [address] * ED PERIPHERAL LINE INSERTION (07/09/2024 1:18 AM X RAY SERVICE TECHNICIAN) Narrative Cherie Damian MD - 07/09/2024 1:18 AM X RAY SERVICE TECHNICIAN Atul Barba MD 07/09/2024 1:18 AM Peripheral [...] Sepsis Lactate w/ Reflex (07/09/2024 1:15 AM X RAY SERVICE TECHNICIAN) Sepsis Lactate 2.8(H) 0.7 - 2.0 mmol/L Blood 07/09/2024 1:15 AM X RAY SERVICE TECHNICIAN 07/09/2024 1:46 AM X RAY SERVICE TECHNICIAN Result [facility] Naa Tam MD LAB BLOOD ORDERABLES Fin al Result Performing Organization Address City/[facility]/ZIP Co de Phone Number [facility] [place] [address] * RPR Blood (07/09/2024 1:15 AM X RAY SERVICE TECHNICIAN) Pathologist [facility] RPR Nonreactive Nonreactive Blood 07/09/2024 1:15 AM X RAY SERVICE TECHNICIAN 07/09/2024 1:40 AM X RAY SERVICE TECHNICIAN Result [facility] Naa Tam MD LAB MICROBIOLOGY - GENER AL ORDERABLES Final Result Performing Organization Address [facility] de Phone Number [facility] [place] [address] * N. gonorrhoeae/C. trachomatis Amplification Urine (07/09/2024 1:02 AM X RAY SERVICE TECHNICIAN) Pathologist [facility] C. trachomatis Not Detected Not Detected [facility] N. gonorrhoeae Not Detected Not Detected [facility] Comment: Interpretive Data This assay detects Chlamydia trachomatis and Neisseria gonorrhoeae by nucleic acid amplification testing (NAAT). This assay has been cleared by the [place] Food and Drug administration. The performance characteristics of this test have been verified by the [facility] Molecular Infectious Disease laboratory. The performance characteristics of this test have not been evaluated in individuals less than 14 years of age. Current Interpretive Data last revised 2023. Urine (None) 07/09/2024 1:02 AM X RAY SERVICE TECHNICIAN 07/09/2024 1:35 AM X RAY SERVICE TECHNICIAN Result [facility] Naa Tam MD LAB MICROBIOLOGY - GENER AL ORDERABLES Final Result [facility] [place] [address] [facility] * (ABNORMAL) Urinalysis reflex to microscopic and culture Urine, clean voided (07/09/2024 1:02 AM X RAY SERVICE TECHNICIAN) Color, ur Straw Yellow Clarity, ur Clear Clear [facility] Specific gravity, ur >1.042(H) 1.003 - 1.030 [facility] pH, urine 7.5 [facility] Comment: Interpretive Data U rine pH is affected by diet, medications, systemic acid-base disturbances, and renal tubular function. pH may affect urinary stone formation. For example, urine pH below 6.0 may help reduce the tendency for calcium phosphate stones and pH greater than 6.0 may reduce the tendency for uric acid stone formation. Source: [facility] Current Interpretive Data was last revised on 2017 Protein, ur ql Trace Negative [facility] Glucose, ur ql Negative Negative [facility] Ketones, ur Negative Negative [facility] Bilirubin, ur Negative Negative [facility] Blood, ur Negative Negative [facility] Urobilinogen, ur <2.0 <2.0 mg/dL [facility] Nitrite, ur Negative Negative [facility] Leukocyte esterase, ur Negative Negative [facility] UA reflex comment Reflex conditions for microscopic UA and culture not met. [facility] Urine, clean voided 07/09/2024 1:02 AM X RAY SERVICE TECHNICIAN 07/09/2024 1:15 AM X RAY SERVICE TECHNICIAN us Naa Tam MD LAB MICROBIOLOGY - GENER AL ORDERABLES Final Result Performing Organization Address [facility]/ZIP Co de Phone Number [facility] [place] [address] * ED PERIPHERAL LINE INSERTION (07/08/2024 10:11 PM X RAY SERVICE TECHNICIAN) Narrative Tri Martinez MD - 07/08/2024 10:11 PM X RAY SERVICE TECHNICIAN Atul Barba MD 07/08/2024 10:12 PM Peripheral [...] Abdomen Pelvis W Contrast (07/08/2024 9:55 PM X RAY SERVICE TECHNICIAN) Anatomical Region Laterality Modality Body N/A Computed Tomogra phy 07/08/2024 10:3 2 PM X RAY SERVICE TECHNICIAN Impressions 07/09/2024 7:23 AM X RAY SERVICE TECHNICIAN Liquid stool within the colon, indicative of diarrheal state. Otherwise, no acute abnormalities in the abdomen or pelvis. Dictated by: Delia Morton MD The radiology attending physician has personally reviewed this study, and had reviewed and/or edited this written report and agrees with it. Electronically signed by: Marlon Kohler M.D. Narrative 07/09/2024 7:23 AM X RAY SERVICE TECHNICIAN EXAMINATION: Computed tomography of the chest, abdomen [...] Sepsis Lactate w/ Reflex (07/08/2024 8:56 PM X RAY SERVICE TECHNICIAN) Pathologist [facility] Sepsis Lactate 2.4(H) 0.7 - 2.0 mmol/L Blood 07/08/2024 8:56 PM X RAY SERVICE TECHNICIAN 07/08/2024 9:24 PM X RAY SERVICE TECHNICIAN us Naa Tam MD LAB BLOOD ORDERABLES Fin al Result [facility] Department [place] [address] * eGFR (07/08/2024 8:56 PM X RAY SERVICE TECHNICIAN) Pathologist [facility] eGFR >90 >=60 mL/min/1. 73 m2 Comment: [...] last reviewed 2021. Blood 07/08/2024 8:56 PM X RAY SERVICE TECHNICIAN 07/08/2024 9:26 PM X RAY SERVICE TECHNICIAN us Naa Tam MD LAB BLOOD ORDERABLES Fin al Result [facility] [place] [address] * Differential, auto (07/08/2024 8:56 PM X RAY SERVICE TECHNICIAN) Neutrophil abs 4.4 1.5 - 6.5 K/cumm Imm gran abs 0.0 0.0 - 0.1 K/cumm [facility] Lymphocyte abs 2.6 0.8 - 3.3 K/cumm [facility] Monocyte abs 0.5 0.2 - 0.8 K/cumm [facility] Eosinophil abs 0.5 0.0 - 0.5 K/cumm [facility] Basophil abs 0.0 0.0 - 0.1 K/cumm [facility] Neutrophil pct 54.7 % [facility] Comment: Interpretive Data Percent cell count reference ranges are not reported, since discordance with absolute values may lead to misinterpretation of CBC data. Current Interpretive Data was last revised on 2017. Imm gran pct 0.2 % [facility] Comment: Interpretive Data Percent cell count reference ranges are not reported, since discordance with absolute values may lead to misinterpretation of CBC data. Current Interpretive Data was last revised on 2017. Lymphocyte pct 32.1 % [facility] Comment: Interpretive Data Percent cell count reference ranges are not reported, since discordance with absolute values may lead to misinterpretation of CBC data. Current Interpretive Data was last revised on 2017. Monocyte pct 6.6 % [facility] Comment: Interpretive Data Percent cell count reference ranges are not reported, since discordance with absolute values may lead to misinterpretation of CBC data. Current Interpretive Data was last revised on 2017. Eosinophil pct 6.0 % [facility] Comment: Interpretive Data Percent cell count reference ranges are not reported, since discordance with absolute values may lead to misinterpretation of CBC data. Current Interpretive Data was last revised on 2017. Basophil pct 0.4 % [facility] Comment: Interpretive Data Percent cell count reference ranges are not reported, since discordance with absolute values may lead to misinterpretation of CBC data. Current Interpretive Data was last revised on 2017. Blood 07/08/2024 8:56 PM X RAY SERVICE TECHNICIAN 07/08/2024 9:27 PM X RAY SERVICE TECHNICIAN us Naa Tam MD LAB BLOOD ORDERABLES Fin al Result [facility] [place] [address] * Respiratory pathogen panel Nasopharyngeal (07/08/2024 8:56 PM X RAY SERVICE TECHNICIAN) Pathologist [facility] Influenza A RNA Not Detected Not Detected Influenza B RNA Not Detected Not Detected [facility] RSV RNA Not Detected Not Detected [facility] COVID-19 RNA Not Detected Not Detected [facility] Coronavirus 229E RNA Not Detected Not Detected [facility] Coronavirus HKU1 RNA Not Detected Not Detected [facility] Coronavirus NL63 RNA Not Detected Not Detected [facility] Coronavirus OC43 RNA Not Detected Not Detected [facility] Adenovirus DNA Not Detected Not Detected [facility] Metapneumovirus RNA Not Detected Not Detected [facility] Rhinovirus/Enterov irus RNA Not Detected Not Detected [facility] Parainfluenza 1 RNA Not Detected Not Detected [facility] Parainfluenza 2 RNA Not Detected Not Detected [facility] Parainfluenza 3 RNA Not Detected Not Detected [facility] Parainfluenza 4 RNA Not Detected Not Detected [facility] B. pertussis DNA Not Detected Not Detected [facility] B. parapertussis DNA Not Detected Not Detected [facility] C. pneumoniae DNA Not Detected Not Detected [facility] M. pneumoniae DNA Not Detected Not Detected [facility] Nasopharyngeal 07/08/2024 8: 56 PM X RAY SERVICE TECHNICIAN 07/08/2024 9:25 PM X RAY SERVICE TECHNICIAN Narrative [facility] - 07/08/2024 10:16 PM X RAY SERVICE TECHNICIAN Is the Patient experiencing symptoms consistent with COVID?->Yes Surveillance testing for transplant patient?->No Interpretive Data The Rapidlea FilmArray Respiratory Panel (RP2.1) assay is a [...] assay has FDA clearance for testing of [employer] swabs. The performance of additional specimen types has been assessed by the performing laboratory. The performance characteristics of this assay have been determined by [facility]. Current interpretive data was last revised on 22. us Naa Tam MD LAB MICROBIOLOGY - [facility] ORDERABLES Final Result [facility] [place] [address] * (ABNORMAL) CBC with auto differential (07/08/2024 8:56 PM X RAY SERVICE TECHNICIAN) WBC 8.0 3.8 - 9.9 K/cumm Hgb 14.4 13.0 - 17.5 g/dL [facility] Hct 43.3 38.9 - 50.3 % [facility] Plt 236 150 - 400 K/cumm [facility] MPV 12.4(H) 9.1 - 12.3 fL [facility] RBC 4.49 4.30 - 5.80 M/cumm [facility] MCV 96.4 81.3 - 96.4 fL [facility] MCH 32.1 27.1 - 33.3 pg [facility] MCHC 33.3 32.3 - 35.7 g/dL [facility] RDW CV 13.5 11.1 - 14.9 % [facility] RDW SD 47.9 35.7 - 48.1 fL [facility] NRBC abs 0.00 0.00 - 0.01 K/cumm [facility] Blood 07/08/2024 8:56 PM X RAY SERVICE TECHNICIAN 07/08/2024 9:27 PM X RAY SERVICE TECHNICIAN us Naa Tam MD LAB BLOOD ORDERABLES Fin al Result Performing Organization Address [facility]/ZIP Co de Phone Number [facility] One [facility] [place] [address] * Lipase (07/08/2024 8:56 PM X RAY SERVICE TECHNICIAN) Pathologist [facility] Lipase 32 10 - 99 Units/L Blood 07/08/2024 8:56 PM X RAY SERVICE TECHNICIAN 07/08/2024 9:26 PM X RAY SERVICE TECHNICIAN us Naa Tam MD LAB BLOOD ORDERABLES Fin al Result Performing Organization Address [facility] de Phone Number [facility] [place] [address] * (ABNORMAL) Comprehensive metabolic panel (07/08/2024 8:56 PM X RAY SERVICE TECHNICIAN) [facility] Sodium 141 135 - 145 mmol/L Potassium, pl 4.5 3.3 - 4.9 mmol/L [facility] Chloride 102 97 - 110 mmol/L [facility] CO2 28 22 - 32 mmol/L [facility] Anion gap 11 2 - 15 mmol/L [facility] BUN 15 6 - 25 mg/dL [facility] Creatinine 0.63(L) 0.80 - 1.30 mg/dL [facility] Glucose 110 70 - 199 mg/dL [facility] Comment: Interpretive Data Fasting glucose >/= [...] Calcium 10.1 8.5 - 10.3 mg/dL [facility] Bilirubin, total 0.2 0.1 - 1.2 mg/dL [facility] Protein, pl 8.0 6.5 - 8.5 g/dL [facility] Albumin 4.1 3.5 - 5.0 g/dL [facility] Alk phos 110 40 - 130 Units/L [facility] ALT 28 7 - 55 Units/L [facility] AST 26 10 - 50 Units/L [facility] Blood 07/08/2024 8:56 PM X RAY SERVICE TECHNICIAN 07/08/2024 9:26 PM X RAY SERVICE TECHNICIAN us Naa Tam MD LAB BLOOD ORDERABLES Fin al Result Performing Organization Address [facility] Co de Phone Number [facility] [place] [address] * ECG 12-LEAD (07/08/2024 8:28 PM X RAY SERVICE TECHNICIAN) Narrative [facility] - 07/08/2024 8:28 PM X RAY SERVICE TECHNICIAN Naa Tam MD 07/08/2024 8:30 PM ECG [...] ORDERABLES Final Re sult Performing Organization Address [facility]/ZIP Co de Phone Number [facility] * XR Chest 1 View (07/08/2024 8:18 PM X RAY SERVICE TECHNICIAN) Anatomical Region Laterality Modality Body, Chest N/A Computed Radiogr aphy 07/08/2024 8:28 PM X RAY SERVICE TECHNICIAN Impressions 07/08/2024 9:56 PM X RAY SERVICE TECHNICIAN Comparison is made to chest graft dated [...] Sekou Wolf M.D. Narrative 07/08/2024 9:56 PM X RAY SERVICE TECHNICIAN EXAMINATION: 1 view chest radiograph Procedure Note [...] Result * POCT glucose (06/28/2024 4:24 PM X RAY SERVICE TECHNICIAN) Glucose, POC 191 70 - 199 mg/dL Blood 06/28/2024 4:24 PM X RAY SERVICE TECHNICIAN 06/28/2024 4:24 PM X RAY SERVICE TECHNICIAN us Kami Dupont MD LAB POCT ORDERABLES - DEV ICE Final Result [facility] [place] [address] * POCT glucose (06/28/2024 12:30 PM X RAY SERVICE TECHNICIAN) Glucose, POC 197 70 - 199 mg/dL Blood 06/28/2024 12:3 0 PM X RAY SERVICE TECHNICIAN 06/28/2024 12:30 PM X RAY SERVICE TECHNICIAN Kami Dupont MD LAB POCT ORDERABLES - DEV ICE Final Result Performing Organization Address [facility] Co de Phone Number [facility] [place] [address] * POCT glucose (06/28/2024 7:43 AM X RAY SERVICE TECHNICIAN) Glucose, POC 191 70 - 199 mg/dL Blood 06/28/2024 7:43 AM X RAY SERVICE TECHNICIAN 06/28/2024 7:43 AM X RAY SERVICE TECHNICIAN Kami Dupont MD LAB POCT ORDERABLES - DEV ICE Final Result Performing Organization Address [facility] de Phone Number [facility] [place] [address] * POCT glucose (06/28/2024 4:01 AM X RAY SERVICE TECHNICIAN) Glucose, POC 173 70 - 199 mg/dL Blood 06/28/2024 4:01 AM X RAY SERVICE TECHNICIAN 06/28/2024 4:01 AM X RAY SERVICE TECHNICIAN Kami Dupont MD LAB POCT ORDERABLES - DEV ICE Final Result Performing Organization Address [facility] Co de Phone Number [facility] [place] [address] * (ABNORMAL) POCT glucose (06/27/2024 11:28 PM X RAY SERVICE TECHNICIAN) Glucose, POC 220(H) 70 - 199 mg/dL Comment:Use Protocol Glucose comment 1 Use Protocol [facility] Blood 06/27/2024 11:2 8 PM X RAY SERVICE TECHNICIAN 06/27/2024 11:28 PM X RAY SERVICE TECHNICIAN Kami Dupont MD LAB POCT ORDERABLES - DEV ICE Final Result Performing Organization Address [facility] Co de Phone Number [facility] [place] [address] * eGFR (06/27/2024 9:30 PM X RAY SERVICE TECHNICIAN) eGFR >90 >=60 mL/min/1. 73 m2 Comment: [...] last reviewed 2021. Blood 06/27/2024 9:30 PM X RAY SERVICE TECHNICIAN 06/27/2024 9:45 PM X RAY SERVICE TECHNICIAN Kami Dupont MD LAB BLOOD ORDERABLES Lulu l Result Performing Organization Address [facility]/ZIP Co de Phone Number [facility] [place] [address] * Phosphorus (06/27/2024 9:30 PM X RAY SERVICE TECHNICIAN) Phosphorus, pl 3.3 2.3 - 4.5 mg/dL Comment:Repeated and Verifie d Blood 06/27/2024 9:30 PM X RAY SERVICE TECHNICIAN 06/27/2024 9:45 PM X RAY SERVICE TECHNICIAN Kami Dupont MD LAB BLOOD ORDERABLES Lulu l Result Performing Organization Address [facility]/ZIP Co de Phone Number [facility] [place] [address] * Magnesium (06/27/2024 9:30 PM X RAY SERVICE TECHNICIAN) Pathologist [facility] Magnesium 1.9 1.4 - 2.5 mg/dL Blood 06/27/2024 9:30 PM X RAY SERVICE TECHNICIAN 06/27/2024 9:45 PM X RAY SERVICE TECHNICIAN Kami Dupont MD LAB BLOOD ORDERABLES Lulu l Result Performing Organization Address [facility] de Phone Number [facility] [place] [address] * (ABNORMAL) Basic metabolic panel (06/27/2024 9:30 PM X RAY SERVICE TECHNICIAN) [facility] Sodium 141 135 - 145 mmol/L Potassium, pl 4.4 3.3 - 4.9 mmol/L [facility] Chloride 105 97 - 110 mmol/L [facility] CO2 28 22 - 32 mmol/L [facility] Anion gap 8 2 - 15 mmol/L [facility] BUN 9 6 - 25 mg/dL [facility] Creatinine 0.47(L) 0.80 - 1.30 mg/dL [facility] Glucose 208(H) 70 - 199 mg/dL [facility] Comment: Interpretive Data Fasting glucose >/= [...] Calcium 8.9 8.5 - 10.3 mg/dL [facility] Blood 06/27/2024 9:30 PM X RAY SERVICE TECHNICIAN 06/27/2024 9:45 PM X RAY SERVICE TECHNICIAN Kami Dupont MD LAB BLOOD ORDERABLES Lulu l Result Performing Organization Address [facility] Co de Phone Number [facility] [place] [address] * POCT glucose (06/27/2024 8:39 PM X RAY SERVICE TECHNICIAN) Glucose, POC 195 70 - 199 mg/dL Blood 06/27/2024 8:39 PM X RAY SERVICE TECHNICIAN 06/27/2024 8:39 PM X RAY SERVICE TECHNICIAN Kami Dupont MD LAB POCT ORDERABLES - DEV ICE Final Result Performing Organization Address [facility] de Phone Number [facility] [place] [address] * POCT glucose (06/27/2024 5:10 PM X RAY SERVICE TECHNICIAN) Glucose, POC 194 70 - 199 mg/dL Blood 06/27/2024 5:10 PM X RAY SERVICE TECHNICIAN 06/27/2024 5:10 PM X RAY SERVICE TECHNICIAN Kami Dupont MD LAB POCT ORDERABLES - DEV ICE Final Result Performing Organization Address [facility] Co de Phone Number [facility] [place] [address] * (ABNORMAL) POCT glucose (06/27/2024 4:27 PM X RAY SERVICE TECHNICIAN) Glucose, POC 224(H) 70 - 199 mg/dL Blood 06/27/2024 4:27 PM X RAY SERVICE TECHNICIAN 06/27/2024 4:27 PM X RAY SERVICE TECHNICIAN Kami Dupont MD LAB POCT ORDERABLES - DEV ICE Final Result Performing Organization Address [facility] Co de Phone Number [facility] [place] [address] * POCT glucose (06/27/2024 1:06 PM X RAY SERVICE TECHNICIAN) Glucose, POC 173 70 - 199 mg/dL Blood 06/27/2024 1:06 PM X RAY SERVICE TECHNICIAN 06/27/2024 1:06 PM X RAY SERVICE TECHNICIAN Kami Dupont MD LAB POCT ORDERABLES - DEV ICE Final Result Performing Organization Address [facility] de Phone Number [facility] [place] [address] * POCT glucose (06/27/2024 9:59 AM X RAY SERVICE TECHNICIAN) Glucose, POC 158 70 - 199 mg/dL Blood 06/27/2024 9:59 AM X RAY SERVICE TECHNICIAN 06/27/2024 9:59 AM X RAY SERVICE TECHNICIAN Kami Dupont MD LAB POCT ORDERABLES - DEV ICE Final Result Performing Organization Address [facility] Co de Phone Number [facility] [place] [address] * eGFR (06/26/2024 10:21 PM X RAY SERVICE TECHNICIAN) eGFR >90 >=60 mL/min/1. 73 m2 Comment: [...] reviewed 2021. Blood 06/26/2024 10:2 1 PM X RAY SERVICE TECHNICIAN 06/26/2024 10:53 PM X RAY SERVICE TECHNICIAN us Kami Dupont MD LAB BLOOD ORDERABLES Lulu coley Result [facility] [place] [address] * Differential, auto (06/26/2024 10:21 PM X RAY SERVICE TECHNICIAN) Neutrophil abs 5.0 1.5 - 6.5 K/cumm Imm gran abs 0.0 0.0 - 0.1 K/cumm [facility] Lymphocyte abs 2.4 0.8 - 3.3 K/cumm [facility] Monocyte abs 0.8 0.2 - 0.8 K/cumm [facility] Eosinophil abs 0.4 0.0 - 0.5 K/cumm [facility] Basophil abs 0.0 0.0 - 0.1 K/cumm [facility] Neutrophil pct 58.2 % [facility] Comment: Interpretive Data Percent cell count reference ranges are not reported, since discordance with absolute values may lead to misinterpretation of CBC data. Current Interpretive Data was last revised on 2017. Imm gran pct 0.3 % [facility] Comment: Interpretive Data Percent cell count reference ranges are not reported, since discordance with absolute values may lead to misinterpretation of CBC data. Current Interpretive Data was last revised on 2017. Lymphocyte pct 27.9 % [facility] Comment: Interpretive Data Percent cell count reference ranges are not reported, since discordance with absolute values may lead to misinterpretation of CBC data. Current Interpretive Data was last revised on 2017. Monocyte pct 9.2 % [facility] Comment: Interpretive Data Percent cell count reference ranges are not reported, since discordance with absolute values may lead to misinterpretation of CBC data. Current Interpretive Data was last revised on 2017. Eosinophil pct 4.1 % [facility] Comment: Interpretive Data Percent cell count reference ranges are not reported, since discordance with absolute values may lead to misinterpretation of CBC data. Current Interpretive Data was last revised on 2017. Basophil pct 0.3 % [facility] Comment: Interpretive Data Percent cell count reference ranges are not reported, since discordance with absolute values may lead to misinterpretation of CBC data. Current Interpretive Data was last revised on 2017. Blood 06/26/2024 10:2 1 PM X RAY SERVICE TECHNICIAN 06/26/2024 10:53 PM X RAY SERVICE TECHNICIAN us Kami Dupont MD LAB BLOOD ORDERABLES Lulu coley Result [facility] [place] [address] * (ABNORMAL) CBC with auto differential (06/26/2024 10:21 PM X RAY SERVICE TECHNICIAN) WBC 8.6 3.8 - 9.9 K/cumm Hgb 13.1 13.0 - 17.5 g/dL [facility] Hct 39.1 38.9 - 50.3 % [facility] Plt 173 150 - 400 K/cumm [facility] MPV 13.1(H) 9.1 - 12.3 fL [facility] RBC 4.07(L) 4.30 - 5.80 M/cumm [facility] MCV 96.1 81.3 - 96.4 fL [facility] MCH 32.2 27.1 - 33.3 pg [facility] MCHC 33.5 32.3 - 35.7 g/dL [facility] RDW CV 13.5 11.1 - 14.9 % [facility] RDW SD 47.8 35.7 - 48.1 fL [facility] NRBC abs 0.00 0.00 - 0.01 K/cumm [facility] Blood 06/26/2024 10:2 1 PM X RAY SERVICE TECHNICIAN 06/26/2024 10:53 PM X RAY SERVICE TECHNICIAN Kami Dupont MD LAB BLOOD ORDERABLES Lulu l Result Performing Organization Address [facility] Co de Phone Number [facility] [place] [address] * Hepatitis B Surface Antigen Blood (06/26/2024 10:21 PM X RAY SERVICE TECHNICIAN) HepBsAg Nonreactive Nonreactive Blood 06/26/2024 10:2 1 PM X RAY SERVICE TECHNICIAN 06/26/2024 10:53 PM X RAY SERVICE TECHNICIAN Kami Dupont MD LAB MICROBIOLOGY - GENERA L ORDERABLES Final Result Performing Organization Address [facility] de Phone Number [facility] [place] [address] * (ABNORMAL) Phosphorus (06/26/2024 10:21 PM X RAY SERVICE TECHNICIAN) Phosphorus, pl <0.7(L) 2.3 - 4.5 mg/dL Comment:Repeated and Verifie d Blood 06/26/2024 10:2 1 PM X RAY SERVICE TECHNICIAN 06/26/2024 10:53 PM X RAY SERVICE TECHNICIAN Kami Dupont MD LAB BLOOD ORDERABLES Lulu l Result Performing Organization Address [facility] [place] [address] * Magnesium (06/26/2024 10:21 PM X RAY SERVICE TECHNICIAN) Magnesium 2.0 1.4 - 2.5 mg/dL Blood 06/26/2024 10:2 1 PM X RAY SERVICE TECHNICIAN 06/26/2024 10:53 PM X RAY SERVICE TECHNICIAN Kami Dupont MD LAB BLOOD ORDERABLES Lulu coley Result Performing Organization Address [facility]/ZIP Co de Phone Number [facility] [place] [address] * (ABNORMAL) Basic metabolic panel (06/26/2024 10:21 PM X RAY SERVICE TECHNICIAN) [facility] Sodium 141 135 - 145 mmol/L Potassium, pl 4.7 3.3 - 4.9 mmol/L [facility] Chloride 106 97 - 110 mmol/L [facility] CO2 28 22 - 32 mmol/L [facility] Anion gap 7 2 - 15 mmol/L [facility] BUN 11 6 - 25 mg/dL [facility] Creatinine 0.47(L) 0.80 - 1.30 mg/dL [facility] Glucose 213(H) 70 - 199 mg/dL [facility] Comment: Interpretive Data Fasting glucose >/= [...] Calcium 9.3 8.5 - 10.3 mg/dL [facility] Blood 06/26/2024 10:2 1 PM X RAY SERVICE TECHNICIAN 06/26/2024 10:53 PM X RAY SERVICE TECHNICIAN Kami Dupont MD LAB BLOOD ORDERABLES Lulu l Result Performing Organization Address [facility]/ZIP Co de Phone Number [facility] [place] [address] * HIV 1/2 Antibody plus p24 Antigen Blood (06/26/2024 3:21 PM X RAY SERVICE TECHNICIAN) HIV 1/2 ab + p24 ag Nonreactive Nonreactive Comment:Nonreactive for HIV- 1 antigen and HIV-1/HIV-2 antibodies. No laboratory evidence of HIV infection. If acute HIV infection is suspected, consider testing for HIV-1 RNA. Current interpretive data was last revised on 22. Blood 06/26/2024 3:21 PM X RAY SERVICE TECHNICIAN 06/26/2024 3:41 PM X RAY SERVICE TECHNICIAN Kami Dupont MD LAB MICROBIOLOGY - GENERA L ORDERABLES Final Result Performing Organization Address [facility] Co de Phone Number [facility] [place] [address] * Hepatitis C antibody Blood (06/26/2024 3:21 PM X RAY SERVICE TECHNICIAN) Hep C Ab Nonreactive Nonreactive Comment:Antibodies to HCV no t detected. Does NOT exclude the possibility of recent exposure to HCV. Current interpretive data was last revised on 22 Blood 06/26/2024 3:21 PM X RAY SERVICE TECHNICIAN 06/26/2024 3:41 PM X RAY SERVICE TECHNICIAN Kami Dupont MD LAB MICROBIOLOGY - GENERA L ORDERABLES Final Result Performing Organization Address [facility] Co de Phone Number [facility] [place] [address] * RPR Blood (06/26/2024 3:21 PM X RAY SERVICE TECHNICIAN) RPR Nonreactive Nonreactive Blood 06/26/2024 3:21 PM X RAY SERVICE TECHNICIAN 06/26/2024 3:41 PM X RAY SERVICE TECHNICIAN Kami Dupont MD LAB MICROBIOLOGY - GENERA L ORDERABLES Final Result Performing Organization Address [facility] Co de Phone Number [facility] [place] [address] * (ABNORMAL) Phosphorus (06/26/2024 3:21 PM X RAY SERVICE TECHNICIAN) Phosphorus, pl 0.7(L) 2.3 - 4.5 mg/dL Comment:Repeated and Verifie d Blood 06/26/2024 3:21 PM X RAY SERVICE TECHNICIAN 06/26/2024 3:41 PM X RAY SERVICE TECHNICIAN Kami Dupont MD LAB BLOOD ORDERABLES Lulu l Result Performing Organization Address [facility]/ZIP Co de Phone Number [facility] [place] [address] * eGFR (06/26/2024 12:16 AM X RAY SERVICE TECHNICIAN) eGFR >90 >=60 mL/min/1. 73 m2 Comment: [...] reviewed 2021. Blood 06/26/2024 12:1 6 AM X RAY SERVICE TECHNICIAN 06/26/2024 12:39 AM X RAY SERVICE TECHNICIAN us Patricia Bryant MD LAB BLOOD ORDERABLES Final Res ult Performing Organization Address [facility]/ZIP Co de Phone Number [facility] [place] [address] * (ABNORMAL) Phosphorus (06/26/2024 12:16 AM X RAY SERVICE TECHNICIAN) [facility] Phosphorus, pl <0.7(L) 2.3 - 4.5 mg/dL Comment:Repeated and Verifie d Blood 06/26/2024 12:1 6 AM X RAY SERVICE TECHNICIAN 06/26/2024 12:39 AM X RAY SERVICE TECHNICIAN Patricia Bryant MD LAB BLOOD ORDERABLES Final Res ult Performing Organization Address [facility]/ZIP Co de Phone Number [facility] [place] [address] * Magnesium (06/26/2024 12:16 AM X RAY SERVICE TECHNICIAN) [facility] Magnesium 1.9 1.4 - 2.5 mg/dL Blood 06/26/2024 12:1 6 AM X RAY SERVICE TECHNICIAN 06/26/2024 12:39 AM X RAY SERVICE TECHNICIAN Patricia Bryant MD LAB BLOOD ORDERABLES Final Res ult Performing Organization Address [facility] de Phone Number [facility] [place] [address] * (ABNORMAL) Basic metabolic panel (06/26/2024 12:16 AM X RAY SERVICE TECHNICIAN) [facility] Sodium 142 135 - 145 mmol/L Potassium, pl 4.4 3.3 - 4.9 mmol/L [facility] Comment:Hemolyzed; Potassium value may be falsely elevated by as much as 0.3-0.5 mmol/L. Suggest redraw and reanalysis. Chloride 109 97 - 110 mmol/L [facility] CO2 29 22 - 32 mmol/L [facility] Anion gap 4 2 - 15 mmol/L [facility] BUN 13 6 - 25 mg/dL [facility] Creatinine 0.53(L) 0.80 - 1.30 mg/dL [facility] Glucose 177 70 - 199 mg/dL [facility] Comment: Interpretive Data Fasting glucose >/= [...] Calcium 9.0 8.5 - 10.3 mg/dL [facility] Blood 06/26/2024 12:1 6 AM X RAY SERVICE TECHNICIAN 06/26/2024 12:39 AM X RAY SERVICE TECHNICIAN Patricia Bryant MD LAB BLOOD ORDERABLES Final Res ult Performing Organization Address [facility] de Phone Number [facility] [place] [address] * POCT glucose (06/23/2024 11:36 AM X RAY SERVICE TECHNICIAN) Glucose, POC 95 70 - 199 mg/dL Blood 06/23/2024 11:3 6 AM X RAY SERVICE TECHNICIAN 06/23/2024 11:36 AM X RAY SERVICE TECHNICIAN Patricia Bryant MD LAB POCT ORDERABLES - DEVICE F inal Result Performing Organization Address [facility] de Phone Number [facility] [place] [address] * (ABNORMAL) CBC without differential (06/23/2024 9:07 AM X RAY SERVICE TECHNICIAN) WBC 4.7 3.8 - 9.9 K/cumm Hgb 12.5(L) 13.0 - 17.5 g/dL [facility] Hct 37.4(L) 38.9 - 50.3 % [facility] Plt 145(L) 150 - 400 K/cumm [facility] MPV 12.6(H) 9.1 - 12.3 fL [facility] RBC 3.94(L) 4.30 - 5.80 M/cumm [facility] MCV 94.9 81.3 - 96.4 fL [facility] MCH 31.7 27.1 - 33.3 pg [facility] MCHC 33.4 32.3 - 35.7 g/dL [facility] RDW CV 12.9 11.1 - 14.9 % [facility] RDW SD 45.1 35.7 - 48.1 fL [facility] NRBC abs 0.00 0.00 - 0.01 K/cumm [facility] Blood 06/23/2024 9:07 AM X RAY SERVICE TECHNICIAN 06/23/2024 9:28 AM X RAY SERVICE TECHNICIAN us Patricia Bryant MD LAB BLOOD ORDERABLES Final Res ult [facility] [place] [address] * eGFR (06/23/2024 9:00 AM X RAY SERVICE TECHNICIAN) eGFR >90 >=60 mL/min/1. 73 m2 Comment: [...] last reviewed 2021. Blood 06/23/2024 9:00 AM X RAY SERVICE TECHNICIAN 06/23/2024 10:59 AM X RAY SERVICE TECHNICIAN us Patricia Bryant MD LAB BLOOD ORDERABLES Final Res ult Performing Organization Address [facility] [place] [address] * Phosphorus (06/23/2024 9:00 AM X RAY SERVICE TECHNICIAN) Phosphorus, pl 2.3 2.3 - 4.5 mg/dL Blood 06/23/2024 9:00 AM X RAY SERVICE TECHNICIAN 06/23/2024 10:59 AM X RAY SERVICE TECHNICIAN us Patricia Bryant MD LAB BLOOD ORDERABLES Final Res ult Performing Organization Address [facility] [place] [address] * Magnesium (06/23/2024 9:00 AM X RAY SERVICE TECHNICIAN) Magnesium 1.7 1.4 - 2.5 mg/dL Blood 06/23/2024 9:00 AM X RAY SERVICE TECHNICIAN 06/23/2024 10:59 AM X RAY SERVICE TECHNICIAN us Patricia Bryant MD LAB BLOOD ORDERABLES Final Res ult Performing Organization Address [facility] [place] [address] * Vancomycin level trough (06/23/2024 9:00 AM X RAY SERVICE TECHNICIAN) Vancomycin trough 15.2 10.0 - 20.0 mcg/mL Blood 06/23/2024 9:00 AM X RAY SERVICE TECHNICIAN 06/23/2024 10:59 AM X RAY SERVICE TECHNICIAN Result Rose Bryant MD LAB BLOOD ORDERABLES Final Res ult Performing Organization Address [facility] Co de Phone [place] [address] * (ABNORMAL) Basic metabolic panel (06/23/2024 9:00 AM X RAY SERVICE TECHNICIAN) Sodium 143 135 - 145 mmol/L Potassium, pl 3.7 3.3 - 4.9 mmol/L [facility] Chloride 108 97 - 110 mmol/L [facility] CO2 28 22 - 32 mmol/L [facility] Anion gap 7 2 - 15 mmol/L [facility] BUN 3(L) 6 - 25 mg/dL [facility] Creatinine 0.50(L) 0.80 - 1.30 mg/dL [facility] Glucose 271(H) 70 - 199 mg/dL [facility] Comment: Interpretive Data Fasting glucose >/= [...] Calcium 9.0 8.5 - 10.3 mg/dL [facility] Blood 06/23/2024 9:00 AM X RAY SERVICE TECHNICIAN 06/23/2024 10:59 AM X RAY SERVICE TECHNICIAN us Patricia Bryant MD LAB BLOOD ORDERABLES Final Res ult [facility] [place] [address] * IR G To GJ-Tube Replacement (06/22/2024 1:24 PM X RAY SERVICE TECHNICIAN) Anatomical Region Laterality Modality Body N/A X-Ray Angiograph y 06/22/2024 1:47 PM X RAY SERVICE TECHNICIAN Impressions 06/22/2024 4:13 PM X RAY SERVICE TECHNICIAN Successful percutaneous 18 Fr 45 cm gastrojejunostomy [...] Sean Hillman M.D. Narrative 06/22/2024 4:13 PM X RAY SERVICE TECHNICIAN EXAMINATION: GASTROJEJUNOSTOMY TUBE EXCHANGE HISTORY/INDICATION: 64 yo [...] procedure. TECHNIQUE: Prior to beginning the procedure, Forest Protocol was performed to confirm the patient's [...] the proximal jejunum. A 19 Citizen Of [place], 45 cm long JELLY single/double lumen gastrojejunostomy [...] procedure. TECHNIQUE: Prior to beginning the procedure, Forest Protocol was performed to confirm the patient's [...] the proximal jejunum. A 19 Citizen Of [place], 45 cm long JELLY single/double lumen gastrojejunostomy [...] by: Sean Hillman M.D. Patricia Bryant MD [facility] IR PROCEDURES Final Result * C. difficile testing Stool (06/21/2024 11:11 AM X RAY SERVICE TECHNICIAN) [facility] Result Negative Negative Toxin Result Negative Negative [facility] C. diff result Negative, free toxin Negative, free toxin [facility] C. diff interp Negative for toxigenic Clostridioides (Clostridium) difficile. Analysis was performed using a glutamate dehydrogenase antigen detection assay combined with a C. difficile toxin detection assay. [facility] Stool 06/21/2024 11:1 1 AM X RAY SERVICE TECHNICIAN 06/21/2024 12:55 PM X RAY SERVICE TECHNICIAN Narrative [facility] - 06/21/2024 2:38 PM X RAY SERVICE TECHNICIAN Testing for C. difficile is not recommended within 4 days of a negative result, 10 days of a positive, or 24 hours after laxative administration. If this order is clinically indicated, contact the lab and enter the passcode to complete this order.->[id number] Patricia Bryant MD LAB MICROBIOLOGY - GENERAL ORD ERABLES Final Result Performing Organization Address [facility]/ZIP Co de Phone Number [facility] [place] [address] * Infection Prevention VRE Culture Stool (06/21/2024 11:10 AM X RAY SERVICE TECHNICIAN) Report Final Report: Negative Stool 06/21/2024 11:1 0 AM X RAY SERVICE TECHNICIAN 06/21/2024 2:41 PM X RAY SERVICE TECHNICIAN Narrative [facility] 06/23/2024 11:15 PM X RAY SERVICE TECHNICIAN Surveillance culture for Infection Prevention purposes only; results indicate colonization, not infection requiring treatment. Testing performed by [facility] ([phone]). Patricia Bryant MD LAB MICROBIOLOGY - GENERAL ORD ERABLES Final Result [facility] [place] [address] * Vancomycin level trough Draw trough 30 minutes prior to 4th dose. (06/21/2024 7:16 AM X RAY SERVICE TECHNICIAN) Vancomycin trough 16.8 10.0 - 20.0 mcg/mL Blood 06/21/2024 7:16 AM X RAY SERVICE TECHNICIAN 06/21/2024 7:27 AM X RAY SERVICE TECHNICIAN Narrative [facility] - 06/21/2024 8:10 AM X RAY SERVICE TECHNICIAN Draw trough 30 minutes prior to 4th dose. Patricia Bryant MD LAB BLOOD ORDERABLES Final Res ult Performing Organization Address [facility] Co de Phone Number [facility] [place] [address] * eGFR (06/21/2024 5:03 AM X RAY SERVICE TECHNICIAN) Pathologist [facility] eGFR >90 >=60 mL/min/1. 73 m2 Comment: [...] last reviewed 2021. Blood 06/21/2024 5:03 AM X RAY SERVICE TECHNICIAN 06/21/2024 5:14 AM X RAY SERVICE TECHNICIAN Patricia Bryant MD LAB BLOOD ORDERABLES Final Res ult Performing Organization Address [facility]/ZIP Co de Phone Number [facility] [place] [address] * Differential, auto (06/21/2024 5:03 AM X RAY SERVICE TECHNICIAN) Pathologist [facility] Neutrophil abs 1.7 1.5 - 6.5 K/cumm Imm gran abs 0.0 0.0 - 0.1 K/cumm [facility] Lymphocyte abs 1.7 0.8 - 3.3 K/cumm [facility] Monocyte abs 0.6 0.2 - 0.8 K/cumm [facility] Eosinophil abs 0.3 0.0 - 0.5 K/cumm [facility] Basophil abs 0.0 0.0 - 0.1 K/cumm [facility] Neutrophil pct 38.8 % [facility] Comment: Interpretive Data Percent cell count reference ranges are not reported, since discordance with absolute values may lead to misinterpretation of CBC data. Current Interpretive Data was last revised on 2017. Imm gran pct 0.2 % [facility] Comment: Interpretive Data Percent cell count reference ranges are not reported, since discordance with absolute values may lead to misinterpretation of CBC data. Current Interpretive Data was last revised on 2017. Lymphocyte pct 40.5 % [facility] Comment: Interpretive Data Percent cell count reference ranges are not reported, since discordance with absolute values may lead to misinterpretation of CBC data. Current Interpretive Data was last revised on 2017. Monocyte pct 13.4 % [facility] Comment: Interpretive Data Percent cell count reference ranges are not reported, since discordance with absolute values may lead to misinterpretation of CBC data. Current Interpretive Data was last revised on 2017. Eosinophil pct 6.6 % [facility] Comment: Interpretive Data Percent cell count reference ranges are not reported, since discordance with absolute values may lead to misinterpretation of CBC data. Current Interpretive Data was last revised on 2017. Basophil pct 0.5 % [facility] Comment: Interpretive Data Percent cell count reference ranges are not reported, since discordance with absolute values may lead to misinterpretation of CBC data. Current Interpretive Data was last revised on 2017. Blood 06/21/2024 5:03 AM X RAY SERVICE TECHNICIAN 06/21/2024 5:14 AM X RAY SERVICE TECHNICIAN us Patricia Bryant MD LAB BLOOD ORDERABLES Final Res ult [facility] [place] [address] * (ABNORMAL) CBC with auto differential (06/21/2024 5:03 AM X RAY SERVICE TECHNICIAN) Pathologist [facility] WBC 4.3 3.8 - 9.9 K/cumm Hgb 11.6(L) 13.0 - 17.5 g/dL [facility] Hct 34.5(L) 38.9 - 50.3 % [facility] Plt 132(L) 150 - 400 K/cumm [facility] MPV 11.3 9.1 - 12.3 fL [facility] RBC 3.53(L) 4.30 - 5.80 M/cumm [facility] MCV 97.7(H) 81.3 - 96.4 fL [facility] MCH 32.9 27.1 - 33.3 pg [facility] MCHC 33.6 32.3 - 35.7 g/dL [facility] RDW CV 13.4 11.1 - 14.9 % [facility] RDW SD 48.0 35.7 - 48.1 fL [facility] NRBC abs 0.00 0.00 - 0.01 K/cumm [facility] Blood 06/21/2024 5:03 AM X RAY SERVICE TECHNICIAN 06/21/2024 5:14 AM X RAY SERVICE TECHNICIAN Patricia Bryant MD LAB BLOOD ORDERABLES Final Res ult Performing Organization Address [facility] Co de Phone Number [facility] [place] [address] * Phosphorus (06/21/2024 5:03 AM X RAY SERVICE TECHNICIAN) Pathologist [facility] Phosphorus, pl 3.1 2.3 - 4.5 mg/dL Blood 06/21/2024 5:03 AM X RAY SERVICE TECHNICIAN 06/21/2024 5:14 AM X RAY SERVICE TECHNICIAN Patricia Bryant MD LAB BLOOD ORDERABLES Final Res ult Performing Organization Address [facility]/ZIP Co de Phone Number [facility] [place] [address] * Magnesium (06/21/2024 5:03 AM X RAY SERVICE TECHNICIAN) Magnesium 1.9 1.4 - 2.5 mg/dL Blood 06/21/2024 5:03 AM X RAY SERVICE TECHNICIAN 06/21/2024 5:14 AM X RAY SERVICE TECHNICIAN us Patricia Bryant MD LAB BLOOD ORDERABLES Final Res ult [facility] [place] [address] * (ABNORMAL) Comprehensive metabolic panel (06/21/2024 5:03 AM X RAY SERVICE TECHNICIAN) Pathologist [facility] Sodium 145 135 - 145 mmol/L Potassium, pl 3.4 3.3 - 4.9 mmol/L [facility] Chloride 112(H) 97 - 110 mmol/L [facility] CO2 27 22 - 32 mmol/L [facility] Anion gap 6 2 - 15 mmol/L [facility] BUN 9 6 - 25 mg/dL [facility] Creatinine 0.57(L) 0.80 - 1.30 mg/dL [facility] Glucose 106 70 - 199 mg/dL [facility] Comment: Interpretive Data Fasting glucose >/= [...] Calcium 8.6 8.5 - 10.3 mg/dL [facility] Bilirubin, total 0.2 0.1 - 1.2 mg/dL [facility] Protein, pl 5.6(L) 6.5 - 8.5 g/dL [facility] Albumin 2.7(L) 3.5 - 5.0 g/dL [facility] Alk phos 61 40 - 130 Units/L [facility] ALT 15 7 - 55 Units/L [facility] AST 25 10 - 50 Units/L [facility] Blood 06/21/2024 5:03 AM X RAY SERVICE TECHNICIAN 06/21/2024 5:14 AM X RAY SERVICE TECHNICIAN Patricia Bryant MD LAB BLOOD ORDERABLES Final Res ult Performing Organization Address [facility] Co de Phone Number [facility] [place] [address] * (ABNORMAL) MSSA/MRSA (Staphylococcus aureus) Culture Nasal (06/20/2024 10:30 PM X RAY SERVICE TECHNICIAN) Report Final Report: 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 Patricia Bryant MD LAB MICROBIOLOGY - GENERAL ORD ERABLES Final Result Performing Organization Address [facility] de Phone Number [facility] [place] [address] * XR Abdomen Ap 1 Vw (06/20/2024 10:29 AM X RAY SERVICE TECHNICIAN) Anatomical Region Laterality Modality Body, Abdomen N/A Computed Radiogr aphy 06/20/2024 10:5 3 AM X RAY SERVICE TECHNICIAN Impressions 06/20/2024 11:51 AM X RAY SERVICE TECHNICIAN Gastrostomy tube. Colonic distention is improved. No radiographic evidence of obstruction. Dictated by: Hunter Hernandez M.D. ([place]) The radiology attending physician has personally reviewed this study, and had reviewed and/or edited this written report and agrees with it. Electronically signed by: Byron Moya M.D. Narrative 06/20/2024 11:51 AM X RAY SERVICE TECHNICIAN EXAMINATION: Abdomen, one view. HISTORY: Abdominal distention. [...] and culture Urine, bladder (06/19/2024 9:34 PM X RAY SERVICE TECHNICIAN) Color, ur Straw Yellow Clarity, ur Clear Clear [facility] Specific gravity, ur 1.021 1.003 - 1.030 [facility] pH, urine 7.0 [facility] Comment: Interpretive Data U rine pH is affected by diet, medications, systemic acid-base disturbances, and renal tubular function. pH may affect urinary stone formation. For example, urine pH below 6.0 may help reduce the tendency for calcium phosphate stones and pH greater than 6.0 may reduce the tendency for uric acid stone formation. Source: [employer] Current Interpretive Data was last revised on 2017 Protein, ur ql 1+(A) Negative [facility] Glucose, ur ql Negative Negative [facility] Ketones, ur Negative Negative [facility] Bilirubin, ur Negative Negative [facility] Blood, ur Negative Negative [facility] Urobilinogen, ur <2.0 <2.0 mg/dL [facility] Nitrite, ur Negative Negative [facility] Leukocyte esterase, ur Negative Negative [facility] UA reflex comment Reflex to microscopic UA will be performed. [facility] Urine, bladder 06/19/2024 9: 34 PM X RAY SERVICE TECHNICIAN 06/19/2024 10:05 PM X RAY SERVICE TECHNICIAN Patricia Bryant MD LAB MICROBIOLOGY - GENERAL ORD ERABLES Final Result Performing Organization Address [facility] Co de Phone Number [facility] [place] [address] * Urinalysis, microscopic only (06/19/2024 9:34 PM X RAY SERVICE TECHNICIAN) Pathologist [facility] WBC, ur 0-5 0 - 5 /HPF RBC, ur 0-2 0 - 2 /HPF [facility] Epithelial cells, squamous, ur 1-5 0 - 5 /HPF [facility] Culture Reflex Comment Reflex conditions for urine culture (WBC >10) not met. [facility] Urine, bladder 06/19/2024 9: 34 PM X RAY SERVICE TECHNICIAN 06/19/2024 10:05 PM X RAY SERVICE TECHNICIAN Patricia Bryant MD LAB URINE ORDERABLES Final Res ult Performing Organization Address [facility] de Phone Number [facility] [place] [address] * (ABNORMAL) Differential, auto (06/19/2024 9:28 PM X RAY SERVICE TECHNICIAN) Neutrophil abs 6.0 1.5 - 6.5 K/cumm Imm gran abs 0.0 0.0 - 0.1 K/cumm [facility] Lymphocyte abs 0.7(L) 0.8 - 3.3 K/cumm [facility] Monocyte abs 0.2 0.2 - 0.8 K/cumm [facility] Eosinophil abs 0.2 0.0 - 0.5 K/cumm [facility] Basophil abs 0.0 0.0 - 0.1 K/cumm [facility] Neutrophil pct 84.1 % [facility] Comment: Interpretive Data Percent cell count reference ranges are not reported, since discordance with absolute values may lead to misinterpretation of CBC data. Current Interpretive Data was last revised on 2017. Imm gran pct 0.4 % [facility] Comment: Interpretive Data Percent cell count reference ranges are not reported, since discordance with absolute values may lead to misinterpretation of CBC data. Current Interpretive Data was last revised on 2017. Lymphocyte pct 10.1 % [facility] Comment: Interpretive Data Percent cell count reference ranges are not reported, since discordance with absolute values may lead to misinterpretation of CBC data. Current Interpretive Data was last revised on 2017. Monocyte pct 2.9 % [facility] Comment: Interpretive Data Percent cell count reference ranges are not reported, since discordance with absolute values may lead to misinterpretation of CBC data. Current Interpretive Data was last revised on 2017. Eosinophil pct 2.4 % [facility] Comment: Interpretive Data Percent cell count reference ranges are not reported, since discordance with absolute values may lead to misinterpretation of CBC data. Current Interpretive Data was last revised on 2017. Basophil pct 0.1 % [facility] Comment: Interpretive Data Percent cell count reference ranges are not reported, since discordance with absolute values may lead to misinterpretation of CBC data. Current Interpretive Data was last revised on 2017. Blood 06/19/2024 9:28 PM X RAY SERVICE TECHNICIAN 06/19/2024 10:38 PM X RAY SERVICE TECHNICIAN us Patricia Bryant MD LAB BLOOD ORDERABLES Final Res ult [facility] [place] [address] * Lacosamide level (06/19/2024 9:28 PM X RAY SERVICE TECHNICIAN) Lacosamide 9.6 1.0 - 10.0 mcg/mL [facility] Comment: ADDITIONAL INFORMATION This test was developed and its performance characteristics determined by [facility] in a manner consistent with CLIA requirements. This test has not been cleared or approved by the U.S. Food and Drug Administration. Test Performed by: [facility] [address] [place] [address] Water Filter Cleaner: Marianela Odonnell Ph.D.; CLIA# [id number] Blood 06/19/2024 9:28 PM X RAY SERVICE TECHNICIAN 06/19/2024 11:01 PM X RAY SERVICE TECHNICIAN Narrative [facility] - 06/22/2024 10:25 AM X RAY SERVICE TECHNICIAN Please get level before lacosamide dose is given us Patricia Bryant MD LAB BLOOD ORDERABLES Final Res ult [facility] [place] [address] [place] ref [facility] * (ABNORMAL) CBC with auto differential (06/19/2024 9:28 PM X RAY SERVICE TECHNICIAN) WBC 7.1 3.8 - 9.9 K/cumm Hgb 12.5(L) 13.0 - 17.5 g/dL [facility] Hct 37.0(L) 38.9 - 50.3 % [facility] Plt 152 150 - 400 K/cumm [facility] MPV 12.6(H) 9.1 - 12.3 fL [facility] RBC 3.90(L) 4.30 - 5.80 M/cumm [facility] MCV 94.9 81.3 - 96.4 fL [facility] MCH 32.1 27.1 - 33.3 pg [facility] MCHC 33.8 32.3 - 35.7 g/dL [facility] RDW CV 13.4 11.1 - 14.9 % [facility] RDW SD 46.8 35.7 - 48.1 fL [facility] NRBC abs 0.00 0.00 - 0.01 K/cumm [facility] Blood 06/19/2024 9:28 PM X RAY SERVICE TECHNICIAN 06/19/2024 10:38 PM X RAY SERVICE TECHNICIAN Patricia Bryant MD LAB BLOOD ORDERABLES Final Res ult Performing Organization Address City/[facility] Co de Phone Number [facility] [place] [address] * Valproic acid level, total (06/19/2024 9:28 PM X RAY SERVICE TECHNICIAN) [facility] Valproic Acid 76.0 50.0 - 100.0 mcg/mL Comment: Interpretive Data Therapeutic or toxic effects of anticonvulsant drugs may occur at different concentrations in different patients and the correlation between dose and clinical effect must be evaluated individually. Current interpretative data was last revised on 13. Blood 06/19/2024 9:28 PM X RAY SERVICE TECHNICIAN 06/19/2024 10:39 PM X RAY SERVICE TECHNICIAN Narrative [facility] - 06/19/2024 11:40 PM X RAY SERVICE TECHNICIAN Please get level before dose is given Patricia Bryant MD LAB BLOOD ORDERABLES Final Res ult Performing Organization Address [facility] Co de Phone Number [facility] [place] [address] * Respiratory pathogen panel Nasopharyngeal (06/19/2024 9:10 PM X RAY SERVICE TECHNICIAN) [facility] Influenza A RNA Not Detected Not Detected Influenza B RNA Not Detected Not Detected [facility] RSV RNA Not Detected Not Detected [facility] COVID-19 RNA Not Detected Not Detected [facility] Coronavirus 229E RNA Not Detected Not Detected [facility] Coronavirus HKU1 RNA Not Detected Not Detected [facility] Coronavirus NL63 RNA Not Detected Not Detected [facility] Coronavirus OC43 RNA Not Detected Not Detected [facility] Adenovirus DNA Not Detected Not Detected [facility] Metapneumovirus RNA Not Detected Not Detected [facility] Rhinovirus/Enterov irus RNA Not Detected Not Detected [facility] Parainfluenza 1 RNA Not Detected Not Detected [facility] Parainfluenza 2 RNA Not Detected Not Detected [facility] Parainfluenza 3 RNA Not Detected Not Detected [facility] Parainfluenza 4 RNA Not Detected Not Detected [facility] B. pertussis DNA Not Detected Not Detected [facility] B. parapertussis DNA Not Detected Not Detected [facility] C. pneumoniae DNA Not Detected Not Detected [facility] M. pneumoniae DNA Not Detected Not Detected [facility] Nasopharyngeal 06/19/2024 9: 10 PM X RAY SERVICE TECHNICIAN 06/19/2024 10:06 PM X RAY SERVICE TECHNICIAN Narrative [facility] - 06/19/2024 11:35 PM X RAY SERVICE TECHNICIAN Is the Patient experiencing symptoms consistent with COVID?->Yes Surveillance testing for transplant patient?->No Interpretive Data The Rapidlea FilmArray Respiratory Panel (RP2.1) assay is a [...] assay has FDA clearance for testing of [employer] swabs. The performance of additional specimen types has been assessed by the performing laboratory. The performance characteristics of this assay have been determined by [facility]. Current interpretive data was last revised on 22. Patricia Bryant MD LAB MICROBIOLOGY - GENERAL ORD ERABLES Final Result [facility] [place] [address] * (ABNORMAL) Aerobic culture and gram stain Tracheal aspirate Tracheal (06/19/2024 6:53 PM X RAY SERVICE TECHNICIAN) Direct Specimen Exam Stain: Abundant polymorphonuclear leukocytes seen. Few squamous epithelial cells seen. Moderate mixed bacterial domenico seen on Gram stain. Report Final Report: Greater than or equal to 100,000 colonies/ml of Staphylococcus aureus Methicillin resistant (MRSA) by penicillin binding protein 2a (PBP2a) testing. Plus growth of clinically insignificant bacterial domenico. (.) [facility] Organism STAPHYLOCOCCUS AUREUS [facility] Organism PLUS GROWTH OF CLINICALLY INSIGNIFICANT DOMENICO. [facility] Tracheal aspirate (Tracheal) 06/19/2024 6:53 PM X RAY SERVICE TECHNICIAN 06/19/2024 8:18 PM X RAY SERVICE TECHNICIAN Narrative [facility] - 06/27/2024 2:52 PM X RAY SERVICE TECHNICIAN Testing performed by [facility] ([phone]) Specimens submitted from normally sterile body sites [...] ORD ERABLES Final Result [facility] [place] [address] * XR Chest 1 View (06/19/2024 6:47 PM X RAY SERVICE TECHNICIAN) Anatomical Region Laterality Modality Body, Chest N/A Digital Radiogra phy 06/20/2024 2:42 PM X RAY SERVICE TECHNICIAN Impressions 06/20/2024 3:15 PM X RAY SERVICE TECHNICIAN Comparison is made to 06/19/2024 at 3:32 [...] Herve Payne M.D. Narrative 06/20/2024 3:15 PM X RAY SERVICE TECHNICIAN EXAMINATION: 1 view chest radiograph Procedure Note [...] pathogen panel Tracheal aspirate (06/19/2024 6:46 PM X RAY SERVICE TECHNICIAN) [facility] Influenza A RNA Not Detected Not Detected Influenza B RNA Not Detected Not Detected [facility] RSV RNA Not Detected Not Detected [facility] COVID-19 RNA Not Detected Not Detected [facility] Coronavirus 229E RNA Not Detected Not Detected [facility] Coronavirus HKU1 RNA Not Detected Not Detected [facility] Coronavirus NL63 RNA Not Detected Not Detected [facility] Coronavirus OC43 RNA Not Detected Not Detected [facility] Adenovirus DNA Not Detected Not Detected [facility] Metapneumovirus RNA Not Detected Not Detected [facility] Rhinovirus/Enterov irus RNA Not Detected Not Detected [facility] Parainfluenza 1 RNA Not Detected Not Detected [facility] Parainfluenza 2 RNA Not Detected Not Detected [facility] Parainfluenza 3 RNA Not Detected Not Detected [facility] Parainfluenza 4 RNA Not Detected Not Detected [facility] B. pertussis DNA Not Detected Not Detected [facility] B. parapertussis DNA Not Detected Not Detected [facility] C. pneumoniae DNA Not Detected Not Detected [facility] M. pneumoniae DNA Not Detected Not Detected [facility] Tracheal aspirate 06/19/2024 6:46 PM X RAY SERVICE TECHNICIAN 06/20/2024 7:55 AM X RAY SERVICE TECHNICIAN Narrative [facility] - 06/20/2024 8:58 AM X RAY SERVICE TECHNICIAN Is the Patient experiencing symptoms consistent with COVID?->Yes Surveillance testing for transplant patient?->No Interpretive Data The Rapidlea FilmArray Respiratory Panel (RP2.1) assay is a [...] assay has FDA clearance for testing of [employer] swabs. The performance of additional specimen types has been assessed by the performing laboratory. The performance characteristics of this assay have been determined by [facility]. Current interpretive data was last revised on 22. us Patricia Bryant MD LAB MICROBIOLOGY - GENERAL ORD ERABLES Final Result [facility] [place] [address] * XR Abdomen Ap 1 Vw (06/19/2024 4:09 PM X RAY SERVICE TECHNICIAN) Anatomical Region Laterality Modality Body, Abdomen N/A Digital Radiogra phy 06/19/2024 4:35 PM X RAY SERVICE TECHNICIAN Impressions 06/19/2024 5:03 PM X RAY SERVICE TECHNICIAN Diffuse mild gaseous bowel distention, similar to the prior exam and could represent ileus. Partially imaged gastrostomy tube. Dictated by: Hunter Hernandez M.D. ([place]) The radiology attending physician has personally reviewed this study, and had reviewed and/or edited this written report and agrees with it. Electronically signed by: Lupillo Lugo M.D. Narrative 06/19/2024 5:03 PM X RAY SERVICE TECHNICIAN EXAMINATION: Abdomen, one view. HISTORY: Abdominal pain [...] XR Chest 1 View (06/19/2024 4:08 PM X RAY SERVICE TECHNICIAN) Anatomical Region Laterality Modality Body, Chest N/A Digital Radiogra phy 06/19/2024 4:21 PM X RAY SERVICE TECHNICIAN Impressions 06/19/2024 4:21 PM X RAY SERVICE TECHNICIAN The current study is compared with the [...] Elif Patel M.D. Narrative 06/19/2024 4:21 PM X RAY SERVICE TECHNICIAN EXAMINATION: 1 view chest radiograph Procedure Note [...] Final Result * eGFR (06/19/2024 2:47 PM X RAY SERVICE TECHNICIAN) eGFR >90 >=60 mL/min/1. 73 m2 Comment: [...] last reviewed 2021. Blood 06/19/2024 2:47 PM X RAY SERVICE TECHNICIAN 06/19/2024 3:03 PM X RAY SERVICE TECHNICIAN Patricia Bryant MD LAB BLOOD ORDERABLES Final Res ult [facility] Department [place] [address] * Differential, auto (06/19/2024 2:47 PM X RAY SERVICE TECHNICIAN) Neutrophil abs 5.5 1.5 - 6.5 K/cumm Imm gran abs 0.0 0.0 - 0.1 K/cumm [facility] Lymphocyte abs 0.9 0.8 - 3.3 K/cumm [facility] Monocyte abs 0.2 0.2 - 0.8 K/cumm [facility] Eosinophil abs 0.3 0.0 - 0.5 K/cumm [facility] Basophil abs 0.0 0.0 - 0.1 K/cumm [facility] Neutrophil pct 79.8 % [facility] Comment: Interpretive Data Percent cell count reference ranges are not reported, since discordance with absolute values may lead to misinterpretation of CBC data. Current Interpretive Data was last revised on 2017. Imm gran pct 0.4 % [facility] Comment: Interpretive Data Percent cell count reference ranges are not reported, since discordance with absolute values may lead to misinterpretation of CBC data. Current Interpretive Data was last revised on 2017. Lymphocyte pct 13.4 % [facility] Comment: Interpretive Data Percent cell count reference ranges are not reported, since discordance with absolute values may lead to misinterpretation of CBC data. Current Interpretive Data was last revised on 2017. Monocyte pct 2.5 % [facility] Comment: Interpretive Data Percent cell count reference ranges are not reported, since discordance with absolute values may lead to misinterpretation of CBC data. Current Interpretive Data was last revised on 2017. Eosinophil pct 3.8 % [facility] Comment: Interpretive Data Percent cell count reference ranges are not reported, since discordance with absolute values may lead to misinterpretation of CBC data. Current Interpretive Data was last revised on 2017. Basophil pct 0.1 % [facility] Comment: Interpretive Data Percent cell count reference ranges are not reported, since discordance with absolute values may lead to misinterpretation of CBC data. Current Interpretive Data was last revised on 2017. Blood 06/19/2024 2:47 PM X RAY SERVICE TECHNICIAN 06/19/2024 3:04 PM X RAY SERVICE TECHNICIAN us Patricia Bryant MD LAB BLOOD ORDERABLES Final Res ult [facility] [place] [address] * (ABNORMAL) CBC with auto differential (06/19/2024 2:47 PM X RAY SERVICE TECHNICIAN) [facility] WBC 6.9 3.8 - 9.9 K/cumm Hgb 14.2 13.0 - 17.5 g/dL [facility] Hct 42.4 38.9 - 50.3 % [facility] Plt 135(L) 150 - 400 K/cumm [facility] MPV 12.6(H) 9.1 - 12.3 fL [facility] RBC 4.47 4.30 - 5.80 M/cumm [facility] MCV 94.9 81.3 - 96.4 fL [facility] MCH 31.8 27.1 - 33.3 pg [facility] MCHC 33.5 32.3 - 35.7 g/dL [facility] RDW CV 13.2 11.1 - 14.9 % [facility] RDW SD 46.5 35.7 - 48.1 fL [facility] NRBC abs 0.00 0.00 - 0.01 K/cumm [facility] Blood 06/19/2024 2:47 PM X RAY SERVICE TECHNICIAN 06/19/2024 3:04 PM X RAY SERVICE TECHNICIAN Patricia Bryant MD LAB BLOOD ORDERABLES Final Res ult Performing Organization Address [facility] Co de Phone Number [facility] [place] [address] * (ABNORMAL) Phosphorus (06/19/2024 2:47 PM X RAY SERVICE TECHNICIAN) [facility] Phosphorus, pl 2.2(L) 2.3 - 4.5 mg/dL Blood 06/19/2024 2:47 PM X RAY SERVICE TECHNICIAN 06/19/2024 3:03 PM X RAY SERVICE TECHNICIAN Patricia Bryant MD LAB BLOOD ORDERABLES Final Res ult Performing Organization Address City/[facility]/ZIP Co de Phone Number [facility] [place] [address] * Magnesium (06/19/2024 2:47 PM X RAY SERVICE TECHNICIAN) Magnesium 2.0 1.4 - 2.5 mg/dL Blood 06/19/2024 2:47 PM X RAY SERVICE TECHNICIAN 06/19/2024 3:03 PM X RAY SERVICE TECHNICIAN us Patricia Bryant MD LAB BLOOD ORDERABLES Final Res ult [facility] [place] [address] * (ABNORMAL) Comprehensive metabolic panel (06/19/2024 2:47 PM X RAY SERVICE TECHNICIAN) Pathologist [facility] Sodium 144 135 - 145 mmol/L Potassium, pl 3.9 3.3 - 4.9 mmol/L [facility] Comment:Hemolyzed; Potassium value may be falsely elevated by as much as 0.3-0.5 mmol/L. Suggest redraw and reanalysis. Chloride 105 97 - 110 mmol/L [facility] CO2 29 22 - 32 mmol/L [facility] Anion gap 10 2 - 15 mmol/L [facility] BUN 7 6 - 25 mg/dL [facility] Creatinine 0.62(L) 0.80 - 1.30 mg/dL [facility] Glucose 113 70 - 199 mg/dL [facility] Comment: Interpretive Data Fasting glucose >/= [...] Calcium 9.5 8.5 - 10.3 mg/dL [facility] Bilirubin, total 0.2 0.1 - 1.2 mg/dL [facility] Protein, pl 7.2 6.5 - 8.5 g/dL [facility] Albumin 3.7 3.5 - 5.0 g/dL [facility] Alk phos 91 40 - 130 Units/L [facility] ALT 13 7 - 55 Units/L [facility] AST 28 10 - 50 Units/L [facility] Comment:Hemolyzed; result ma y be falsely elevated Blood 06/19/2024 2:47 PM X RAY SERVICE TECHNICIAN 06/19/2024 3:03 PM X RAY SERVICE TECHNICIAN Patricia Bryant MD LAB BLOOD ORDERABLES Final Res ult Performing Organization Address [facility] Co de Phone Number [facility] [place] [address] * POCT glucose (06/19/2024 2:25 PM X RAY SERVICE TECHNICIAN) Glucose, POC 125 70 - 199 mg/dL Blood 06/19/2024 2:25 PM X RAY SERVICE TECHNICIAN 06/19/2024 2:25 PM X RAY SERVICE TECHNICIAN Patricia Bryant MD LAB POCT ORDERABLES - DEVICE F inal Result Performing Organization Address [facility] Phone Number [facility] [place] [address] * XR Abdomen Ap 1 Vw (06/16/2024 6:16 PM X RAY SERVICE TECHNICIAN) Anatomical Region Laterality Modality Body, Abdomen N/A Computed Radiogr aphy 06/16/2024 6:56 PM X RAY SERVICE TECHNICIAN Impressions 06/16/2024 6:56 PM X RAY SERVICE TECHNICIAN Gastrostomy tube is present. Aerated bowel seen throughout the abdomen. The gaseous distention is improved from the prior examination. Distal rectal air is not definitively visualized. No pneumoperitoneum. Electronically signed by: Sekou Wolf M.D. Narrative 06/16/2024 6:56 PM X RAY SERVICE TECHNICIAN EXAMINATION: Abdomen, one view. HISTORY: Abdominal distension. [...] Res ult * eGFR (06/16/2024 12:42 PM X RAY SERVICE TECHNICIAN) eGFR >90 >=60 mL/min/1. 73 m2 Comment: [...] reviewed 2021. Blood 06/16/2024 12:4 2 PM X RAY SERVICE TECHNICIAN 06/16/2024 12:49 PM X RAY SERVICE TECHNICIAN Misael Felix MD LAB BLOOD ORDERABLES Final Result [facility] Department of Laboratories [place], [place] [id number] * Differential, auto (06/16/2024 12:42 PM X RAY SERVICE TECHNICIAN) Neutrophil abs 2.5 1.5 - 6.5 K/cumm Imm gran abs 0.0 0.0 - 0.1 K/cumm [facility] Lymphocyte abs 2.4 0.8 - 3.3 K/cumm [facility] Monocyte abs 0.4 0.2 - 0.8 K/cumm [facility] Eosinophil abs 0.4 0.0 - 0.5 K/cumm [facility] Basophil abs 0.0 0.0 - 0.1 K/cumm [facility] Neutrophil pct 42.8 % [facility] Comment: Interpretive Data Percent cell count reference ranges are not reported, since discordance with absolute values may lead to misinterpretation of CBC data. Current Interpretive Data was last revised on 2017. Imm gran pct 0.2 % [facility] Comment: Interpretive Data Percent cell count reference ranges are not reported, since discordance with absolute values may lead to misinterpretation of CBC data. Current Interpretive Data was last revised on 2017. Lymphocyte pct 42.2 % [facility] Comment: Interpretive Data Percent cell count reference ranges are not reported, since discordance with absolute values may lead to misinterpretation of CBC data. Current Interpretive Data was last revised on 2017. Monocyte pct 6.7 % [facility] Comment: Interpretive Data Percent cell count reference ranges are not reported, since discordance with absolute values may lead to misinterpretation of CBC data. Current Interpretive Data was last revised on 2017. Eosinophil pct 7.7 % [facility] Comment: Interpretive Data Percent cell count reference ranges are not reported, since discordance with absolute values may lead to misinterpretation of CBC data. Current Interpretive Data was last revised on 2017. Basophil pct 0.4 % [facility] Comment: Interpretive Data Percent cell count reference ranges are not reported, since discordance with absolute values may lead to misinterpretation of CBC data. Current Interpretive Data was last revised on 2017. Blood 06/16/2024 12:4 2 PM X RAY SERVICE TECHNICIAN 06/16/2024 12:49 PM X RAY SERVICE TECHNICIAN us Misael Felix MD LAB BLOOD ORDERABLES Final Result [facility] [place] [address] * (ABNORMAL) CBC with auto differential (06/16/2024 12:42 PM X RAY SERVICE TECHNICIAN) Pathologist [facility] WBC 5.7 3.8 - 9.9 K/cumm Hgb 12.2(L) 13.0 - 17.5 g/dL [facility] Hct 36.6(L) 38.9 - 50.3 % [facility] Plt 156 150 - 400 K/cumm [facility] MPV 12.6(H) 9.1 - 12.3 fL [facility] RBC 3.85(L) 4.30 - 5.80 M/cumm [facility] MCV 95.1 81.3 - 96.4 fL [facility] MCH 31.7 27.1 - 33.3 pg [facility] MCHC 33.3 32.3 - 35.7 g/dL [facility] RDW CV 13.0 11.1 - 14.9 % [facility] RDW SD 45.1 35.7 - 48.1 fL [facility] NRBC abs 0.00 0.00 - 0.01 K/cumm [facility] Blood 06/16/2024 12:4 2 PM X RAY SERVICE TECHNICIAN 06/16/2024 12:49 PM X RAY SERVICE TECHNICIAN Misael Felix MD LAB BLOOD ORDERABLES Final Result Performing Organization Address City/[facility]/ZIP Co de Phone Number [facility] [place] [address] * Phosphorus (06/16/2024 12:42 PM X RAY SERVICE TECHNICIAN) Pathologist [facility] Phosphorus, pl 2.5 2.3 - 4.5 mg/dL Blood 06/16/2024 12:4 2 PM X RAY SERVICE TECHNICIAN 06/16/2024 12:49 PM X RAY SERVICE TECHNICIAN Misael Felix MD LAB BLOOD ORDERABLES Final Result [facility] [place] [address] * Magnesium (06/16/2024 12:42 PM X RAY SERVICE TECHNICIAN) Pathologist [facility] Magnesium 2.0 1.4 - 2.5 mg/dL Blood 06/16/2024 12:4 2 PM X RAY SERVICE TECHNICIAN 06/16/2024 12:49 PM X RAY SERVICE TECHNICIAN Misael Felix MD LAB BLOOD ORDERABLES Final Result [facility] [place] [address] * (ABNORMAL) Comprehensive metabolic panel (06/16/2024 12:42 PM X RAY SERVICE TECHNICIAN) [facility] Sodium 143 135 - 145 mmol/L Potassium, pl 3.5 3.3 - 4.9 mmol/L [facility] Chloride 111(H) 97 - 110 mmol/L [facility] CO2 26 22 - 32 mmol/L [facility] Anion gap 6 2 - 15 mmol/L [facility] BUN 6 6 - 25 mg/dL [facility] Creatinine 0.56(L) 0.80 - 1.30 mg/dL [facility] Glucose 94 70 - 199 mg/dL [facility] Comment: Interpretive Data Fasting glucose >/= [...] Calcium 8.9 8.5 - 10.3 mg/dL [facility] Bilirubin, total 0.4 0.1 - 1.2 mg/dL [facility] Protein, pl 6.3(L) 6.5 - 8.5 g/dL [facility] Albumin 3.3(L) 3.5 - 5.0 g/dL [facility] Alk phos 79 40 - 130 Units/L [facility] ALT 10 7 - 55 Units/L [facility] AST 18 10 - 50 Units/L [facility] Blood 06/16/2024 12:4 2 PM X RAY SERVICE TECHNICIAN 06/16/2024 12:49 PM X RAY SERVICE TECHNICIAN us Misael Felix MD LAB BLOOD ORDERABLES Final Result [facility] [place] [address] * XR Abdomen Ap 1 Vw (06/15/2024 1:57 AM X RAY SERVICE TECHNICIAN) Anatomical Region Laterality Modality Body, Abdomen N/A Computed Radiogr aphy 06/15/2024 3:15 PM X RAY SERVICE TECHNICIAN Impressions 06/15/2024 4:44 PM X RAY SERVICE TECHNICIAN There is a gastrostomy tube with tip [...] Sean Angel M.D. Narrative 06/15/2024 4:44 PM X RAY SERVICE TECHNICIAN EXAMINATION: Abdomen, one view. HISTORY: Abdominal distension. [...] Res ult * eGFR (06/13/2024 4:59 AM X RAY SERVICE TECHNICIAN) eGFR >90 >=60 mL/min/1. 73 m2 Comment: [...] last reviewed 2021. Blood 06/13/2024 4:59 AM X RAY SERVICE TECHNICIAN 06/13/2024 5:38 AM X RAY SERVICE TECHNICIAN Ryan Jauregui MD LAB BLOOD ORDERABLES Final Resul t [facility] [place] [address] * (ABNORMAL) Differential, auto (06/13/2024 4:59 AM X RAY SERVICE TECHNICIAN) Neutrophil abs 10.3(H) 1.5 - 6.5 K/cumm Imm gran abs 0.1 0.0 - 0.1 K/cumm [facility] Lymphocyte abs 3.0 0.8 - 3.3 K/cumm [facility] Monocyte abs 0.9(H) 0.2 - 0.8 K/cumm [facility] Eosinophil abs 0.2 0.0 - 0.5 K/cumm [facility] Basophil abs 0.0 0.0 - 0.1 K/cumm [facility] Neutrophil pct 70.9 % [facility] Comment: Interpretive Data Percent cell count reference ranges are not reported, since discordance with absolute values may lead to misinterpretation of CBC data. Current Interpretive Data was last revised on 2017. Imm gran pct 0.4 % [facility] Comment: Interpretive Data Percent cell count reference ranges are not reported, since discordance with absolute values may lead to misinterpretation of CBC data. Current Interpretive Data was last revised on 2017. Lymphocyte pct 20.7 % [facility] Comment: Interpretive Data Percent cell count reference ranges are not reported, since discordance with absolute values may lead to misinterpretation of CBC data. Current Interpretive Data was last revised on 2017. Monocyte pct 6.5 % [facility] Comment: Interpretive Data Percent cell count reference ranges are not reported, since discordance with absolute values may lead to misinterpretation of CBC data. Current Interpretive Data was last revised on 2017. Eosinophil pct 1.4 % [facility] Comment: Interpretive Data Percent cell count reference ranges are not reported, since discordance with absolute values may lead to misinterpretation of CBC data. Current Interpretive Data was last revised on 2017. Basophil pct 0.1 % [facility] Comment: Interpretive Data Percent cell count reference ranges are not reported, since discordance with absolute values may lead to misinterpretation of CBC data. Current Interpretive Data was last revised on 2017. Blood 06/13/2024 4:59 AM X RAY SERVICE TECHNICIAN 06/13/2024 5:38 AM X RAY SERVICE TECHNICIAN us Ryan Jauregui MD LAB BLOOD ORDERABLES Final Resul t [facility] [place] [address] * Lacosamide level (06/13/2024 4:59 AM X RAY SERVICE TECHNICIAN) [facility] Lacosamide 1.4 1.0 - 10.0 mcg/mL [facility] Comment: ADDITIONAL INFORMATION This test was developed and its performance characteristics determined by [facility] in a manner consistent with CLIA requirements. This test has not been cleared or approved by the U.S. Food and Drug Administration. Test Performed by: [facility] - [facility] [address] [place] [address] Water Filter Cleaner: Marianela Odonnell Ph.D.; CLIA# [id number] Blood 06/13/2024 4:59 AM X RAY SERVICE TECHNICIAN 06/13/2024 5:38 AM X RAY SERVICE TECHNICIAN Ryan Jauregui MD LAB BLOOD ORDERABLES Final Resul t [facility] [place] [address] [facility] * (ABNORMAL) CBC with auto differential (06/13/2024 4:59 AM X RAY SERVICE TECHNICIAN) [facility] WBC 14.6(H) 3.8 - 9.9 K/cumm Hgb 13.2 13.0 - 17.5 g/dL [facility] Hct 39.7 38.9 - 50.3 % [facility] Plt 155 150 - 400 K/cumm [facility] MPV 12.4(H) 9.1 - 12.3 fL [facility] RBC 4.03(L) 4.30 - 5.80 M/cumm [facility] MCV 98.5(H) 81.3 - 96.4 fL [facility] MCH 32.8 27.1 - 33.3 pg [facility] MCHC 33.2 32.3 - 35.7 g/dL [facility] RDW CV 13.6 11.1 - 14.9 % [facility] RDW SD 50.2(H) 35.7 - 48.1 fL [facility] NRBC abs 0.00 0.00 - 0.01 K/cumm [facility] Blood 06/13/2024 4:59 AM X RAY SERVICE TECHNICIAN 06/13/2024 5:38 AM X RAY SERVICE TECHNICIAN Ryan Jauregui MD LAB BLOOD ORDERABLES Final Resul t Performing Organization Address [facility]/ZIP Co de Phone Number [facility] [place] [address] * Blood culture Blood (06/13/2024 4:59 AM X RAY SERVICE TECHNICIAN) Report Final Report: No growth Blood 06/13/2024 4:59 AM X RAY SERVICE TECHNICIAN 06/13/2024 6:21 AM X RAY SERVICE TECHNICIAN Narrative [facility] - 06/17/2024 7:00 AM X RAY SERVICE TECHNICIAN From a different site than #1. Collection->Peripheral [...] be performed for organism identification using the [facility]ca [facility]lex blood culture identification panel for gram positive (BCID-GP) and gram negative (BCID-GN) organisms. This nucleic acid amplification test detects microbial DNA in positive blood culture broth. This assay has been cleared by the [place] Food and Drug Administration and its performance characteristics have been verified by the [facility]. For questions about this culture, contact the Microbiology Laboratory at [phone]. Interpretive data was last revised on 24. Ryan Jauregui MD LAB MICROBIOLOGY - GENERAL ORDER NICHOLE Final Result Performing Organization Address [facility]/ZIP Co de Phone Number [facility] [place] [address] * Phosphorus (06/13/2024 4:59 AM X RAY SERVICE TECHNICIAN) Phosphorus, pl 3.0 2.3 - 4.5 mg/dL Blood 06/13/2024 4:59 AM X RAY SERVICE TECHNICIAN 06/13/2024 5:38 AM X RAY SERVICE TECHNICIAN Ryan Jauregui MD LAB BLOOD ORDERABLES Final Resul t Performing Organization Address [facility] Co de Phone Number [facility] [place] [address] * Magnesium (06/13/2024 4:59 AM X RAY SERVICE TECHNICIAN) Magnesium 1.9 1.4 - 2.5 mg/dL Blood 06/13/2024 4:59 AM X RAY SERVICE TECHNICIAN 06/13/2024 5:38 AM X RAY SERVICE TECHNICIAN Ryan Jauregui MD LAB BLOOD ORDERABLES Final Resul t Performing Organization Address [facility] de Phone Number [facility] [place] [address] * (ABNORMAL) Valproic acid level, total (06/13/2024 4:59 AM X RAY SERVICE TECHNICIAN) Valproic Acid 48.0(L) 50.0 - 100.0 mcg/mL Comment: Interpretive Data Therapeutic or toxic effects of anticonvulsant drugs may occur at different concentrations in different patients and the correlation between dose and clinical effect must be evaluated individually. Current interpretative data was last revised on 13. Blood 06/13/2024 4:59 AM X RAY SERVICE TECHNICIAN 06/13/2024 5:38 AM X RAY SERVICE TECHNICIAN us Ryan Jauregui MD LAB BLOOD ORDERABLES Final Resul t Performing Organization Address [facility] Co de Phone Number [facility] [place] [address] * (ABNORMAL) Comprehensive metabolic panel (06/13/2024 4:59 AM X RAY SERVICE TECHNICIAN) Sodium 141 135 - 145 mmol/L Potassium, pl 3.9 3.3 - 4.9 mmol/L [facility] Chloride 106 97 - 110 mmol/L [facility] CO2 28 22 - 32 mmol/L [facility] Anion gap 7 2 - 15 mmol/L [facility] BUN 8 6 - 25 mg/dL [facility] Creatinine 0.54(L) 0.80 - 1.30 mg/dL [facility] Glucose 103 70 - 199 mg/dL [facility] Comment: Interpretive Data Fasting glucose >/= [...] Calcium 9.5 8.5 - 10.3 mg/dL [facility] Bilirubin, total 0.5 0.1 - 1.2 mg/dL [facility] Protein, pl 7.1 6.5 - 8.5 g/dL [facility] Albumin 3.7 3.5 - 5.0 g/dL [facility] Alk phos 96 40 - 130 Units/L [facility] ALT 17 7 - 55 Units/L [facility] AST 22 10 - 50 Units/L [facility] Blood 06/13/2024 4:59 AM X RAY SERVICE TECHNICIAN 06/13/2024 5:38 AM X RAY SERVICE TECHNICIAN us Ryan Jauregui MD LAB BLOOD ORDERABLES Final Resul t [facility] [place] [address] * TSH (06/12/2024 3:51 PM X RAY SERVICE TECHNICIAN) Pathologist [facility] Thyroid Stimulating Hormone 2.58 0.30 - 4.20 mcIUnit/mL Blood 06/12/2024 3:51 PM X RAY SERVICE TECHNICIAN 06/12/2024 5:05 PM X RAY SERVICE TECHNICIAN us Ryan Jauregui MD LAB BLOOD ORDERABLES Final Resul t [facility] [place] [address] * (ABNORMAL) Differential, auto (06/12/2024 3:30 PM X RAY SERVICE TECHNICIAN) Pathologist [facility] Neutrophil abs 9.5(H) 1.5 - 6.5 K/cumm Imm gran abs 0.0 0.0 - 0.1 K/cumm [facility] Lymphocyte abs 2.3 0.8 - 3.3 K/cumm [facility] Monocyte abs 1.1(H) 0.2 - 0.8 K/cumm [facility] Eosinophil abs 0.2 0.0 - 0.5 K/cumm [facility] Basophil abs 0.0 0.0 - 0.1 K/cumm [facility] Neutrophil pct 72.4 % [facility] Comment: Interpretive Data Percent cell count reference ranges are not reported, since discordance with absolute values may lead to misinterpretation of CBC data. Current Interpretive Data was last revised on 2017. Imm gran pct 0.2 % [facility] Comment: Interpretive Data Percent cell count reference ranges are not reported, since discordance with absolute values may lead to misinterpretation of CBC data. Current Interpretive Data was last revised on 2017. Lymphocyte pct 17.4 % [facility] Comment: Interpretive Data Percent cell count reference ranges are not reported, since discordance with absolute values may lead to misinterpretation of CBC data. Current Interpretive Data was last revised on 2017. Monocyte pct 8.3 % [facility] Comment: Interpretive Data Percent cell count reference ranges are not reported, since discordance with absolute values may lead to misinterpretation of CBC data. Current Interpretive Data was last revised on 2017. Eosinophil pct 1.5 % [facility] Comment: Interpretive Data Percent cell count reference ranges are not reported, since discordance with absolute values may lead to misinterpretation of CBC data. Current Interpretive Data was last revised on 2017. Basophil pct 0.2 % [facility] Comment: Interpretive Data Percent cell count reference ranges are not reported, since discordance with absolute values may lead to misinterpretation of CBC data. Current Interpretive Data was last revised on 2017. Blood 06/12/2024 3:30 PM X RAY SERVICE TECHNICIAN 06/12/2024 5:10 PM X RAY SERVICE TECHNICIAN us Ryan Jauregui MD LAB BLOOD ORDERABLES Final Resul t [facility] [place] [address] * (ABNORMAL) CBC with auto differential (06/12/2024 3:30 PM X RAY SERVICE TECHNICIAN) WBC 13.3(H) 3.8 - 9.9 K/cumm Hgb 13.7 13.0 - 17.5 g/dL [facility] Hct 41.5 38.9 - 50.3 % [facility] Plt 162 150 - 400 K/cumm [facility] MPV 13.6(H) 9.1 - 12.3 fL [facility] RBC 4.27(L) 4.30 - 5.80 M/cumm [facility] MCV 97.2(H) 81.3 - 96.4 fL [facility] MCH 32.1 27.1 - 33.3 pg [facility] MCHC 33.0 32.3 - 35.7 g/dL [facility] RDW CV 13.7 11.1 - 14.9 % [facility] RDW SD 48.8(H) 35.7 - 48.1 fL [facility] NRBC abs 0.00 0.00 - 0.01 K/cumm [facility] Blood 06/12/2024 3:30 PM X RAY SERVICE TECHNICIAN 06/12/2024 5:10 PM X RAY SERVICE TECHNICIAN Ryan Jauregui MD LAB BLOOD ORDERABLES Final Resul t Performing Organization Address [facility] de Phone Number [facility] [place] [address] * Hemoglobin A1c (06/12/2024 3:30 PM X RAY SERVICE TECHNICIAN) Hgb A1C 4.9 4.0 - 5.6 % Estimated Average Glucose 94 mg/dL [facility] Comment: The ADA recommends reporting an estimated Average Glucose (eAG) with all Hemoglobin A1c results using the equation derived from a study of 507 normal and diabetic adults. Minority populations were underrepresented and children were not included. (Diabetes Care 2020; 43(S1): S66-S76). The eAG is not equivalent to a fasting glucose. Blood 06/12/2024 3:30 PM X RAY SERVICE TECHNICIAN 06/12/2024 5:10 PM X RAY SERVICE TECHNICIAN Ryan Jauregui MD LAB BLOOD ORDERABLES Final Resul t Performing Organization Address [facility] de Phone Number [facility] [place] [address] * Troponin I high-sensitivity 4-hour (06/12/2024 3:27 PM X RAY SERVICE TECHNICIAN) Pathologist [facility] Trop I hs 10 <=35 ng/L Comment: Interpretive Data For further hscTnI resources including the diagnostic algorithm and an aid in interpretation, copy and paste this link: [email or web address]/[email or web address] Current Interpretive Data last revised 2019. Trop I hs delta 1 ng/L [facility] Trop I hs interp Insignificant [facility] Blood 06/12/2024 3:27 PM X RAY SERVICE TECHNICIAN 06/12/2024 5:06 PM X RAY SERVICE TECHNICIAN Shakila Jung MD LAB BLOOD ORDERABL ES Final Result Performing Organization Address [facility] Co de Phone Number [facility] [place] [address] * XR Chest 1 Vw Portable (06/12/2024 2:47 PM X RAY SERVICE TECHNICIAN) Anatomical Region Laterality Modality Body, Chest N/A Computed Radiogr aphy 06/12/2024 2:51 PM X RAY SERVICE TECHNICIAN Impressions 06/12/2024 2:51 PM X RAY SERVICE TECHNICIAN Comparison to 10/07/2021. Tracheostomy device in place. Small lung volumes with bibasilar atelectasis. No pneumothorax or focal consolidation. Unchanged cardiomediastinal silhouette, accounting for differences volumes. Small left pleural effusion. No right pleural effusion. Electronically signed by: Raul Whitfield M.D. Narrative 06/12/2024 2:51 PM X RAY SERVICE TECHNICIAN EXAMINATION: 1 view chest radiograph Procedure Note [...] Urine, in and out catheter (06/12/2024 2:38PM X RAY SERVICE TECHNICIAN) Color, ur Straw Yellow Clarity, ur Clear Clear [facility] Specific gravity, ur >1.042(H) 1.003 - 1.030 [facility] pH, urine 8.5 [facility] Comment: Interpretive Data U rine pH is affected by diet, medications, systemic acid-base disturbances, and renal tubular function. pH may affect urinary stone formation. For example, urine pH below 6.0 may help reduce the tendency for calcium phosphate stones and pH greater than 6.0 may reduce the tendency for uric acid stone formation. Source: [facility] Current Interpretive Data was last revised on 2017 Protein, ur ql Trace Negative [facility] Glucose, ur ql Negative Negative [facility] Ketones, ur Negative Negative [facility] Bilirubin, ur Negative Negative [facility] Blood, ur Negative Negative [facility] Urobilinogen, ur 2.0(A) <2.0 mg/dL [facility] Nitrite, ur Negative Negative [facility] Leukocyte esterase, ur Negative Negative [facility] UA reflex comment Reflex conditions for microscopic UA and culture not met. [facility] Urine, in and out catheter 06/12/2024 2:38 PM X RAY SERVICE TECHNICIAN 06/12/2024 3:47 PM X RAY SERVICE TECHNICIAN us Shakila Jung MD LAB MICROBIOLOGY - GENERAL ORDERABLES Final Result [facility] [place] [address] * (ABNORMAL) Differential, auto (06/12/2024 2:23 PM X RAY SERVICE TECHNICIAN) Neutrophil abs 9.9(H) 1.5 - 6.5 K/cumm Imm gran abs 0.1 0.0 - 0.1 K/cumm [facility] Lymphocyte abs 2.5 0.8 - 3.3 K/cumm [facility] Monocyte abs 1.0(H) 0.2 - 0.8 K/cumm [facility] Eosinophil abs 0.2 0.0 - 0.5 K/cumm [facility] Basophil abs 0.0 0.0 - 0.1 K/cumm [facility] Neutrophil pct 72.4 % [facility] Comment: Interpretive Data Percent cell count reference ranges are not reported, since discordance with absolute values may lead to misinterpretation of CBC data. Current Interpretive Data was last revised on 2017. Imm gran pct 0.4 % [facility] Comment: Interpretive Data Percent cell count reference ranges are not reported, since discordance with absolute values may lead to misinterpretation of CBC data. Current Interpretive Data was last revised on 2017. Lymphocyte pct 18.4 % [facility] Comment: Interpretive Data Percent cell count reference ranges are not reported, since discordance with absolute values may lead to misinterpretation of CBC data. Current Interpretive Data was last revised on 2017. Monocyte pct 7.2 % [facility] Comment: Interpretive Data Percent cell count reference ranges are not reported, since discordance with absolute values may lead to misinterpretation of CBC data. Current Interpretive Data was last revised on 2017. Eosinophil pct 1.5 % [facility] Comment: Interpretive Data Percent cell count reference ranges are not reported, since discordance with absolute values may lead to misinterpretation of CBC data. Current Interpretive Data was last revised on 2017. Basophil pct 0.1 % [facility] Comment: Interpretive Data Percent cell count reference ranges are not reported, since discordance with absolute values may lead to misinterpretation of CBC data. Current Interpretive Data was last revised on 2017. Blood 06/12/2024 2:23 PM X RAY SERVICE TECHNICIAN 06/12/2024 4:04 PM X RAY SERVICE TECHNICIAN us Shakila Jung MD LAB BLOOD ORDERABL ES Final Result [facility] [place] [address] * (ABNORMAL) CBC with auto differential (06/12/2024 2:23 PM X RAY SERVICE TECHNICIAN) WBC 13.7(H) 3.8 - 9.9 K/cumm Hgb 14.1 13.0 - 17.5 g/dL [facility] Hct 42.0 38.9 - 50.3 % [facility] Plt 171 150 - 400 K/cumm [facility] MPV 13.2(H) 9.1 - 12.3 fL [facility] RBC 4.36 4.30 - 5.80 M/cumm [facility] MCV 96.3 81.3 - 96.4 fL [facility] MCH 32.3 27.1 - 33.3 pg [facility] MCHC 33.6 32.3 - 35.7 g/dL [facility] RDW CV 13.5 11.1 - 14.9 % [facility] RDW SD 48.5(H) 35.7 - 48.1 fL [facility] NRBC abs 0.00 0.00 - 0.01 K/cumm [facility] Blood 06/12/2024 2:23 PM X RAY SERVICE TECHNICIAN 06/12/2024 4:04 PM X RAY SERVICE TECHNICIAN Shakila Jung MD LAB BLOOD ORDERABL ES Final Result Performing Organization Address [facility] de Phone Number [facility] [place] [address] * Troponin I high-sensitivity 2-hour (06/12/2024 1:56 PM X RAY SERVICE TECHNICIAN) Trop I hs 10 <=35 ng/L Comment: Interpretive Data For further hscTnI resources including the diagnostic algorithm and an aid in interpretation, copy and paste this link: [email or web address]/[email or web address] Current Interpretive Data last revised 2019. Trop I hs delta 1 ng/L [facility] Trop I hs interp Insignificant [facility] Blood 06/12/2024 1:56 PM X RAY SERVICE TECHNICIAN 06/12/2024 2:22 PM X RAY SERVICE TECHNICIAN Shakila Jung MD LAB BLOOD ORDERABL ES Final Result Performing Organization Address [facility] de Phone Number [facility] [place] [address] * CT Abdomen Pelvis W Contrast (06/12/2024 12:22 PM X RAY SERVICE TECHNICIAN) Anatomical Region Laterality Modality Body N/A Computed Tomogra phy 06/12/2024 12:4 9 PM X RAY SERVICE TECHNICIAN Impressions 06/12/2024 12:49 PM X RAY SERVICE TECHNICIAN No acute findings in the abdomen/pelvis. Specifically, no bowel obstruction. Electronically signed by: Raul Whitfield M.D. Narrative 06/12/2024 12:49 PM X RAY SERVICE TECHNICIAN EXAMINATION: Computed tomography of the abdomen and [...] ED PERIPHERAL LINE INSERTION (06/12/2024 11:50 AM X RAY SERVICE TECHNICIAN) Narrative Shakila Jung MD - 06/12/2024 11:50 AM X RAY SERVICE TECHNICIAN Shakila Jung MD 06/12/2024 11:50 AM Peripheral [...] and COVID-19 PCR Nasopharyngeal (06/12/2024 11:39 AM X RAY SERVICE TECHNICIAN) [facility] COVID-19 RNA Negative Negative [facility] Influenza A RNA Negative Negative [facility] Influenza B RNA Negative Negative [facility] RSV RNA Negative Negative [facility] Comment: Interpretive data: Testing performed by [facility] ([phone]). This test is performed using the [employer] Xpert Xpress CoV-2/Flu/RSV plus assay. This is a multiplex, real-time reverse transcriptase PCR assay intended for the qualitative detection of nucleic acid from SARS-CoV-2, influenza A, influenza B, and respiratory syncytial virus. This assay has been cleared by the [place] Food and Drug administration. The performance characteristics have been verified by the [facility]. Results must be considered in the clinical context, and a negative result does not rule out infection. Interpretive Data last revised 2023 Nasopharyngeal 06/12/2024 11 :39 AM X RAY SERVICE TECHNICIAN 06/12/2024 12:55 PM X RAY SERVICE TECHNICIAN Narrative [facility] - 06/12/2024 1:39 PM X RAY SERVICE TECHNICIAN Is the Patient experiencing symptoms consistent with COVID?->Unknown Result [facility] Shakila Jung MD LAB MICROBIOLOGY - GENERAL ORDERABLES Final Result Performing Organization Address [facility] Co de Phone Number [facility] [place] [address] [facility] [facility] * POCT creatinine (06/12/2024 11:29 AM X RAY SERVICE TECHNICIAN) Creatinine POC 0.7 0.7 - 1.3 mg/dL Blood 06/12/2024 11:2 9 AM X RAY SERVICE TECHNICIAN 06/12/2024 11:29 AM X RAY SERVICE TECHNICIAN Result [facility] Shakila Jung MD LAB POCT ORDERABLE S - DEVICE Final Result Performing Organization Address [facility] de Phone Number [facility] [place] [address] * Troponin I high-sensitivity series (baseline, 2hr, 4hr, 6hr) (06/12/2024 11:22 AM X RAY SERVICE TECHNICIAN) Trop I hs 9 <=35 ng/L Comment: Interpretive Data For further hscTnI resources including the diagnostic algorithm and an aid in interpretation, copy and paste this link: [email or web address].[email or web address]/show/[email or web address] Current Interpretive Data last revised 2019. Blood 06/12/2024 11:2 2 AM X RAY SERVICE TECHNICIAN 06/12/2024 1:06 PM X RAY SERVICE TECHNICIAN Result [facility] Shakila Jung MD LAB BLOOD ORDERABL ES Final Result Performing Organization Address [facility] Co de Phone Number [facility] [place] [address] * eGFR (06/12/2024 11:22 AM X RAY SERVICE TECHNICIAN) eGFR >90 >=60 mL/min/1. 73 m2 Comment: [...] reviewed 2021. Blood 06/12/2024 11:2 2 AM X RAY SERVICE TECHNICIAN 06/12/2024 1:07 PM X RAY SERVICE TECHNICIAN Shakila Jung MD LAB BLOOD ORDERABL ES Final Result [facility] [place] [address] * Differential, auto (06/12/2024 11:22 AM X RAY SERVICE TECHNICIAN) Pathologist [facility] Neutrophil abs See Comment 1.5 - 6.5 Comment:Credited, specimen c lotted. Imm gran abs See Comment 0.0 - 0.1 [facility] Comment:Credited, specimen c lotted. Lymphocyte abs See Comment 0.8 - 3.3 [facility] Comment:Credited, specimen c lotted. Monocyte abs See Comment 0.2 - 0.8 [facility] Comment:Credited, specimen c lotted. Eosinophil abs See Comment 0.0 - 0.5 [facility] Comment:Credited, specimen c lotted. Basophil abs See Comment 0.0 - 0.1 [facility] Comment:Credited, specimen c lotted. Neutrophil pct See Comment [facility] Comment: Credited, specimen clotted. Interpretive Data Percent cell count reference ranges are not reported, since discordance with absolute values may lead to misinterpretation of CBC data. Current Interpretive Data was last revised on 2017. Imm gran pct See Comment [facility] Comment: Credited, specimen clotted. Interpretive Data Percent cell count reference ranges are not reported, since discordance with absolute values may lead to misinterpretation of CBC data. Current Interpretive Data was last revised on 2017. Lymphocyte pct See Comment [facility] Comment: Credited, specimen clotted. Interpretive Data Percent cell count reference ranges are not reported, since discordance with absolute values may lead to misinterpretation of CBC data. Current Interpretive Data was last revised on 2017. Monocyte pct See Comment [facility] Comment: Credited, specimen clotted. Interpretive Data Percent cell count reference ranges are not reported, since discordance with absolute values may lead to misinterpretation of CBC data. Current Interpretive Data was last revised on 2017. Eosinophil pct See Comment [facility] Comment: Credited, specimen clotted. Interpretive Data Percent cell count reference ranges are not reported, since discordance with absolute values may lead to misinterpretation of CBC data. Current Interpretive Data was last revised on 2017. Basophil pct See Comment [facility] Comment: Credited, specimen clotted. Interpretive Data Percent cell count reference ranges are not reported, since discordance with absolute values may lead to misinterpretation of CBC data. Current Interpretive Data was last revised on 2017. Blood 06/12/2024 11:2 2 AM X RAY SERVICE TECHNICIAN 06/12/2024 1:07 PM X RAY SERVICE TECHNICIAN us Shakila Jung MD LAB BLOOD ORDERABL ES Edited Result - Final [facility] [place] [address] * CBC with auto differential (06/12/2024 11:22 AM X RAY SERVICE TECHNICIAN) WBC See Comment 3.8 - 9.9 Comment:Credited, specimen c lotted. Hgb See Comment 13.0 - 17.5 [facility] Comment:Credited, specimen c lotted. Hct See Comment 38.9 - 50.3 [facility] Comment:Credited, specimen c lotted. Plt See Comment 150 - 400 [facility] Comment: Credited, specimen clotted. spoke to ALFRED Velásquez 06/12/2024 14:17:24 X RAY SERVICE TECHNICIAN fv MPV See Comment 9.1 - 12.3 [facility] Comment:Credited, specimen c lotted. RBC See Comment 4.30 - 5.80 [facility] Comment:Credited, specimen c lotted. MCV See Comment 81.3 - 96.4 [facility] Comment:Credited, specimen c lotted. MCH See Comment 27.1 - 33.3 [facility] Comment:Credited, specimen c lotted. MCHC See Comment 32.3 - 35.7 [facility] Comment:Credited, specimen c lotted. RDW CV See Comment 11.1 - 14.9 [facility] Comment:Credited, specimen c lotted. RDW SD See Comment 35.7 - 48.1 [facility] Comment:Credited, specimen c lotted. NRBC abs See Comment 0.00 - 0.01 K/cumm [facility] Comment:Credited, specimen c lotted. Blood 06/12/2024 11:2 2 AM X RAY SERVICE TECHNICIAN 06/12/2024 1:07 PM X RAY SERVICE TECHNICIAN Shakila Jung MD LAB BLOOD ORDERABL ES Final Result [facility] [place] [address] * Lipase (06/12/2024 11:22 AM X RAY SERVICE TECHNICIAN) Lipase 24 10 - 99 Units/L Blood 06/12/2024 11:2 2 AM X RAY SERVICE TECHNICIAN 06/12/2024 1:07 PM X RAY SERVICE TECHNICIAN Shakila Jung MD LAB BLOOD ORDERABL ES Final Result Performing Organization Address [facility] Co de Phone Number [facility] [place] [address] * (ABNORMAL) Valproic acid level, total (06/12/2024 11:22 AM X RAY SERVICE TECHNICIAN) Valproic Acid 48.0(L) 50.0 - 100.0 mcg/mL Comment: Interpretive Data Therapeutic or toxic effects of anticonvulsant drugs may occur at different concentrations in different patients and the correlation between dose and clinical effect must be evaluated individually. Current interpretative data was last revised on 13. Blood 06/12/2024 11:2 2 AM X RAY SERVICE TECHNICIAN 06/12/2024 1:07 PM X RAY SERVICE TECHNICIAN Shakila Jung MD LAB BLOOD ORDERABL ES Final Result Performing Organization Address [facility] de Phone Number [facility] [place] [address] * (ABNORMAL) Comprehensive metabolic panel (06/12/2024 11:22 AM X RAY SERVICE TECHNICIAN) Pathologist [facility] Sodium 142 135 - 145 mmol/L Potassium, pl 4.6 3.3 - 4.9 mmol/L [facility] Comment:Hemolyzed; Potassium value may be falsely elevated by as much as 0.6-1.0 mmol/L. Suggest redraw and reanalysis. Chloride 101 97 - 110 mmol/L [facility] CO2 29 22 - 32 mmol/L [facility] Anion gap 12 2 - 15 mmol/L [facility] BUN 11 6 - 25 mg/dL [facility] Creatinine 0.60(L) 0.80 - 1.30 mg/dL [facility] Glucose 89 70 - 199 mg/dL [facility] Comment: Interpretive Data Fasting glucose >/= [...] Calcium 10.3 8.5 - 10.3 mg/dL [facility] Bilirubin, total 0.3 0.1 - 1.2 mg/dL [facility] Protein, pl 8.5 6.5 - 8.5 g/dL [facility] Albumin 4.3 3.5 - 5.0 g/dL [facility] Alk phos 114 40 - 130 Units/L [facility] ALT 22 7 - 55 Units/L [facility] AST 45 10 - 50 Units/L [facility] Comment:Hemolyzed; result ma y be falsely elevated Blood 06/12/2024 11:2 2 AM X RAY SERVICE TECHNICIAN 06/12/2024 1:07 PM X RAY SERVICE TECHNICIAN Shakila Jung MD LAB BLOOD ORDERABL ES Final Result [facility] [place] [address] * ECG 12-LEAD (06/12/2024 11:01 AM X RAY SERVICE TECHNICIAN) Narrative [facility] - 06/12/2024 11:01 AM X RAY SERVICE TECHNICIAN Shakila Jung MD 06/12/2024 11:02 AM ECG 12 lead Date/Time: 06/12/2024 11:01 AM Performed by: Shakila Jung MD Authorized by: Shaklia Jung MD Interpretation: Interpretation: non-specific Recommended Follow-up: [...] MD ECG ORDERABLES Fi nal Result [facility] * TNI with LIPID PANEL (08/24/2017 4:57 PM CDT) Troponin I < 0.300 0.000 - 0.300 ng/mL 08/24/2017 5:29 PM T [facility] drumbi HISTORICAL RESULTS Comment: Reference using ZAC Chemiluminescence Negative: Repeat in 4-6 hours as indicated. Triglycerides 34 0 - 199 mg/dL 08/24/2017 5:30 PM T [facility] drumbi HISTORICAL RESULTS Comment:12 hr pc highly avani mmended for Triglyceride Cholesterol 129 0 - 199 mg/dL 08/24/2017 5:30 PM T [facility] drumbi HISTORICAL RESULTS Comment: Borderline: 200-239 High Risk: >239 HDL Cholesterol 71 mg/dL 8 5:30 PM T [facility] drumbi HISTORICAL RESULTS Comment: Reference Ranges: Males: >=40 mg/dL Females: >=50 mg/dL LDL Cholesterol, Calc 51 0 - 130 mg/dL 08/24/2017 5:30 PM T [facility] drumbi HISTORICAL RESULTS Comment:High Risk > 159 mg/d L Cholesterol/HDL Ratio 1.8 08/24/2017 5:30 PM T [facility] drumbi HISTORICAL RESULTS Comment: Cholesterol / HDL Ratio 3.5:1 or less is desirable. Cholesterol / HDL Ratio greater than 5:1 is considered higher risk for developing heart disease. 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 Source: [facility]. 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 Source: [facility] [employer]. 09/18/22 Acinetobacter os 09/18/[address] [facility] Advance Directives For more information, please contact: [phone] Documents on File Type Date Recorded Patient Food And Drug Inspector Expl anation ADVANCE DIRECTIVE 10/08/2012 12:00 AM [facility] [employer] * Full Code (Latest Code Status on File) Date Activated Date Inactivated Comments 06/12/2024 3:22 PM 06/28/2024 9:30 PM * Full Code Date Activated Date Inactivated Comments 12/10/2020 9:05 AM 12/13/2020 10:44 PM Care Teams Echo Vascular Technologist Relationship Specialty Start Date End Date Marielena Smallwood MD [address] [place] [place] [address] PCP - General Family Practice 07/08/24
--- OUTSIDE RECORDS SUMMARY | 2024-08-22 02:17 | XMS_ITS | Clinical Summary ---
Author Organization [facility] Address [address] [place] [address] Care Team Providers Care Antichecking Iron Worker Name Role Phone Frank Toure MD Unavailable Marielena Smallwood MD Primary Care Provider Allergies Active Allergy Reactions Criticality Noted Date Comments Clonazepam Hallucinations Medium 12/09/2021 hallucinations Medications vitamin B-1 100 MG TabIndications:Seiz ure ([facility]) Take 1 tablet (100 [...] x 7.5 MG/0.1ML Liquid Therapy PackIndications:Tara llanes ([facility]) 2 sprays by Nasal route as [...] No evidence of infection [facility] were negative growth as well [...] infection. Antibiotics not indicated Osteoporosis 11/22/2018 Seizure ([facility]) 08/25/2017 Cerebrovascular accident (CV A) due to thrombosis of right posterior cerebral artery ([facility]) 02/20/2016 Assessment & Plan (11/29/2018 9:36 PM CDT): Patient has residual cognitive difficulties I think beyond with patient and her family have recognized in the past however as noted in adequate medication intake her side effects may be causing deterioration. Hypertension 07/24/2015 Hyperlipidemia 04/14/2015 Assessment & Plan (11/29/2018 9:36 PM CDT): Continue home meds and monitor Seizure ([facility]) 04/11/2015 Assessment & Plan (11/29/2018 9:39 PM CDT): History of generalized seizure disorder and being managed by a neurologist in [facility] however there is confusion from family about dosages of his medications because he is got multiple pill bottles at home. Verification of levetiracetam dose per neurologist noted Encounters Date Type Department Care Team Description 08/14/2024 MyChart Message Enc [facility] Family Medicine [address] [address] Marielena Smallwood MD Use of [...] Comments Blood Pressure 128/72 06/17/2022 10:46 AM HEADING AND PRIMING OPERATOR Pulse 95 06/17/2022 10:46 AM HEADING AND PRIMING OPERATOR Temperature 36.4 C (97.6 F) 06/07/2022 12:31 PM HEADING AND PRIMING OPERATOR Respiratory Rate 18 06/17/2022 10:4 6 AM HEADING AND PRIMING OPERATOR Oxygen Saturation 98% 06/17/2022 10: 46 AM HEADING AND PRIMING OPERATOR Inhaled Oxygen Concentration - - Weight 59 kg (130 lb) 06/17/2022 10:46 AM HEADING AND PRIMING OPERATOR stated - unable to weigh Height 180.3 cm (5' 11 ) 06/17/2022 10: 46 AM HEADING AND PRIMING OPERATOR Body Mass Index 18.13 06/17/2022 10:46 AM HEADING AND PRIMING OPERATOR Plan of Treatment Health Maintenance Due Date Last Done Comments Annual Physical 01/27/1963 Zoster Vaccines (1 of 2) 2011 RSV Immunization or 60+ Years (1 - Risk 60-74 years 1-dose series) 2021 COVID-19 Vaccine ( - season) 2024 04/06/2021, 07/02/2020, 06/11/2020 Influenza Adult (#1) 2024 02/01/2022, 03/16/2021, 03/07/2020, Additional history exists PHQ-2 (Physician [place]) 05/30/2024 Colorectal Cancer Screening Colonoscopy (10 Years) [...] HEPATITIS C ANTIBODY Routine 06/23/2016 11:13 AM HEADING AND PRIMING OPERATOR from Last 3 Months or Most Recently [...] * HEPATITIS C ANTIBODY (06/23/2016 11:13 AM HEADING AND PRIMING OPERATOR) HEPATITIS C AB NON-REACTIVE [place] [address] NR [facility] TO EPIC CONVERSION 06/23/2016 11:1 3 AM HEADING AND PRIMING OPERATOR 06/23/2016 11:13 AM HEADING AND PRIMING OPERATOR Narrative [facility] TO EPIC CONVERSION - 06/24/2016 6:41 PM HEADING AND PRIMING OPERATOR Result Communication: No patient communication needed at this time us Misael Maradiaga DO LABORATORY Final Result [facility] TO EPIC CONVERSION from Last 3 Months or Most Recently Relevant to Health Maintenance Insurance [employer] Advance Directives Documents on File Type Date Recorded Patient Supervisor Transferring And Boxing Expl anation Advance Directives and Living Will 10/17/2017 SADVANCE DIRECTIVES * Full Code (Latest Code Status on File) Date Activated Date Inactivated Comments 12/04/2018 1:44 PM 12/12/2018 3:19 PM * Full Code Date Activated Date Inactivated Comments 11/29/2018 6:21 PM 12/04/2018 1:38 PM Care Teams Antichecking Iron Worker Relationship Specialty Start Date End Date Marielena Smallwood MD [address] [place] [id number] PCP - General FAMILY PRACTICE 10/27/23 Frank Toure MD [address] [place] [id number] Chivo Manager Activities CARDIOVASCULAR DISEASE 05/30/16
--- OUTSIDE RECORDS SUMMARY | 2024-08-22 02:17 | XMS_ITS | Encounter Summary ---
Author Organization [facility] - [facility] Address [address] [place] [address] Care Team Providers Care Grain Trader Name Role Phone Frank Toure MD Unavailable Joyce Luevano NP Primary Care Provider Unavaila Marielena Adame MD Primary Care Provider Encounter Details Date Type Department Care Team (Late st Contact Info) Description 06/16/2022 MyCProformativet Message Enc [facility] Family Medicine - [address] [address] Joyce Luevano, FRAME OPERATOR [employer] Social History Tobacco Use [...] Coronavirus/COVID-19? No / Unsure 06/17/2022 10:38 AM MARKETING AND DEVELOPMENT COORDINATOR documented as of this encounter Functional Status [...] in writing. She states to fax to [phone]. Will send letter to them. ETING AND DEVELOPMENT COORDINATOR * Yonatan Rodriguez RN - 06/16/2022 12:50 PM CST Please see note. Thanks ETING AND DEVELOPMENT COORDINATOR documented in this encounter Plan of Treatment Not on file documented as of this encounter Visit Diagnoses Not on filedocumented in this encounter Care Teams Grain Trader Relationship Specialty Start Date End Date Joyce Luevano NP [address] [place] [id number] PCP - General NURSE PRACTITIONER 01/14/20 10/26/23 Marielena Smallwood MD [address] [place] [address] PCP - General FAMILY PRACTICE 10/27/23 Frank Toure MD [address] [place] [address] Chivo Rolling Chair Pusher CARDIOVASCULAR DISEASE 05/30/16 documented as of this encounter
--- OUTSIDE RECORDS SUMMARY | 2024-08-22 02:17 | XMS_ITS | Encounter Summary ---
Author Organization [facility] - [facility] Address [address] [place] [address] Care Team Providers Care Control Clerk Subassembly Name Role Phone Frank Toure MD Unavailable Joyce Luevano NP Primary Care Provider Unavaila Marielena Adame MD Primary Care Provider [phone] Encounter Details Date Type Department Care Team (Late st Contact Info) Description 02/23/2022 MyCFewziont Message Enc [facility] Medical Group Family Medicine - [address] [address] Joyce Luevano, MATERIAL HANDLING WAREHOUSE SUPERVISOR [employer] toenail Social History Tobacco Use [...] on filedocumented in this encounter Care Teams Control Clerk Subassembly Relationship Specialty Start Date End Date Joyce Luevano NP [address] [place] [address] PCP - General NURSE PRACTITIONER 01/14/20 10/26/23 Marielena Smallwood MD [facility] [address] PCP - General FAMILY PRACTICE 10/27/23 Frank Toure MD [address] [place] [address] Chivo Habilitation Specialist CARDIOVASCULAR DISEASE 05/30/16 documented as of this encounter
--- OUTSIDE RECORDS SUMMARY | 2024-08-22 02:17 | XMS_ITS | Referral Summary ---
Author Organization [facility] Address [address] [place] [address] Care Team Providers Care Operator Cavity Pump Name Role Phone Marielena Smallwood MD Primary Care Provider Encounters Date Type Department Care Team Description 07/09/2024 7:23 PM CLAM DREDGE BOAT CAPTAIN - 07/09/2024 11:59 PM CLAM DREDGE BOAT CAPTAIN Hospital Encounter AMBULANCE BILLING [address] [place] [address] Discharge Disposition: Discharge to home or self care 07/08/2024 7:52 PM CLAM DREDGE BOAT CAPTAIN - 07/09/2024 7:48 AM CLAM DREDGE BOAT CAPTAIN Emergency [facility] Emergency Department [address] [place] [phone] Tri Martinez MD Thomas, Cherie Edwards MD Tracheostomy complication, unspecified complication type (HCC) (Primary Dx); Balanitis Discharge Disposition: Discharge to home or self care 06/12/2024 10:26 AM CLAM DREDGE BOAT CAPTAIN - 06/28/2024 5:25 PM CLAM DREDGE BOAT CAPTAIN Hospital Encounter [address] [phone] Shakila Jung MD Choi, Cheuk Ho Jeffrey, [...] 06/28/19 Active cloBAZam (ONFI) 2.5 mg/mL suspensionIndicati ons:[place]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 Monitor with q4 accuchecks and SSI. Hypophosphatemia 06/27/2024 Assessment & Plan (06/28/2024 11:44 AM CLAM DREDGE BOAT CAPTAIN): <0.7 ? 2/2 refeeding syndrome. Started on neutraphos 2pkg QID 06/26. Still Phos<0.7 06/27. Tx with IV NaPhos 30mmoles and cont per tube replacement and monitor closely. -06/28: Phos=3.3, reduce nuetraphos to 1 PKG BID and monitor History of DVT (deep vein thrombosis) 06/26/2024 Assessment & Plan (06/26/2024 1:32 PM CLAM DREDGE BOAT CAPTAIN): -On anticoagulation with Eliquis 5 mg po BID for hx of DVT -per chart review hx of Left Subclavian vein DVT diagnosed 08/01/23 H/O: GI bleed 06/25/2024 Assessment & Plan (06/26/2024 1:32 PM CLAM DREDGE BOAT CAPTAIN): - [facility] ( 06-07-24 [...] 06/25/2024 Assessment & Plan (06/26/2024 1:36 PM CLAM DREDGE BOAT CAPTAIN): Tracheostomy dependence, has a Shiley #4 cuffed. Pt followed at [facility], per notes trach in place for pulmonary toilet due to his copious secretions and ongoing aspiration of his secretions. -needing frequent suctioning -sats stable on 28% FIO2 by HHTC -Was getting VEST at [facility] Low grade fever 06/20/2024 Assessment & Plan (06/26/2024 1:34 PM CLAM DREDGE BOAT CAPTAIN): Low-grade fever and tachycardia, softer BP after [...] 06/17/2024 Assessment & Plan (06/28/2024 11:43 AM CLAM DREDGE BOAT CAPTAIN): -patient at admission with a G tube, was getting continous tube feedings at [facility] and not tolerating, -was changed [...] 12/14/22 (additional documented GJ tube procedures at [facility] most recent 09/09/23). Pt ' feeding tube fell off and pt had 18 Cymraes G tube placed at [facility] ED on 04/21/24 (records on care everywhere)and after that he has not tolerated well tube feedings per discussion with his sister Ms Hilliard,Adriane [phone] POA - consulted IR 06-20-24 for conversion [...] goal 06/25, adjust FWF per hydration status, swim coach to follow up -On full TF's-osmolite 1.5. Phos repleted. Copious oral secretions 06/13/2024 Assessment & Plan (06/26/2024 1:29 PM CLAM DREDGE BOAT CAPTAIN): Patient on chronic glycopyrrolate due to secretions, held at admission 07/01 to potential for constipation with plan to add back when he's had a bowel movements -resume on 06-19- hold on 06-20 due to somnolence. Suction PRN - restart glycopyrrolate 1mg BID 06/26 and monitor Abdominal pain 06/12/2024 Assessment & Plan (06/26/2024 1:23 PM CLAM DREDGE BOAT CAPTAIN): -p/w abdominal distention from SNF to ED on 06-12 ,reported biliary emesis per [facility] (approximately 300 cc) , not associated fevers or change in bowel habits. Feeding tube placed to gravity drainage in ED H&P notes regular bowel movements. CT scan on 06-12 in ED with stool in the rectum and sigmoid. Tina likely constipation contributing to the patient's abdominal [...] 06/12/2024 Assessment & Plan (06/26/2024 12:08 AM CLAM DREDGE BOAT CAPTAIN): Complicated by left LE AKA. History of CVA (cerebrovascular accident) 2020 Assessment & Plan (06/26/2024 1:32 PM CLAM DREDGE BOAT CAPTAIN): - hx of RT parietal CVA- hx of dementia Cont asa and statin Essential hypertension 12/11/2020 Assessment & Plan (06/26/2024 1:30 PM CLAM DREDGE BOAT CAPTAIN): - on metoprolol and norvasc, held with soft BP 06-19 - resume metoprolol 06-21 -resume amlodipine 06-22 - Monitor Hyperlipidemia 12/11/2020 Assessment & Plan (06/12/2024 3:47 PM CLAM DREDGE BOAT CAPTAIN): - Continue home statin Seizure 12/10/2020 Assessment & Plan (06/26/2024 1:36 PM CLAM DREDGE BOAT CAPTAIN): History of seizure disorder secondary to traumatic brain injury. Currently on valproate, Vimpat, Keppra and Cobazam - Continue home medication, valproate level low at admit 48 on 06-12, 48 on 06-13, Valproic acid level 76 06-19 prior to dose, lacosamide level 1.4 on 06/12, 9.6 on 06-19 Followed by Neurology at [facility] Cognitive communication deficit 08/25/2020 [...] Smokeless Tobacco: Current Tobacco Cessation:Counseling Given: Yes [facility] Utilities Answer Date Recorded In the past 12 months has [employer], gas, oil, or water company threatened [...] often do you attend chur ch or denominational services? Never 06/18/2024 Do you belong to any clubs o r organizations such as judaism groups, unions, fraternal or athletic groups, or [...] on file Legal Sex Male 6:11 AM CLAM DREDGE BOAT CAPTAIN Gender Identity Not on file Sexual Orientation Not on file Last Filed Vital Signs Vital Sign Reading Time Taken Comments Blood Pressure 145/83 07/09/2024 6:00 AM CLAM DREDGE BOAT CAPTAIN Pulse 91 07/09/2024 6:00 AM CLAM DREDGE BOAT CAPTAIN Temperature 36.5 C (97.7 F) 07/09/2024 6:31 AM CLAM DREDGE BOAT CAPTAIN Respiratory Rate 10 07/09/2024 6:00 AM CLAM DREDGE BOAT CAPTAIN Oxygen Saturation 100% 07/09/2024 6:00 AM CLAM DREDGE BOAT CAPTAIN Inhaled Oxygen Concentration - - Weight 79.8 kg (176 lb) 07/09/2024 2:16 AM CLAM DREDGE BOAT CAPTAIN Height 182.9 cm (6') 07/09/2024 2:16 AM CLAM DREDGE BOAT CAPTAIN Body Mass Index 23.87 07/09/2024 2:16 AM CLAM DREDGE BOAT CAPTAIN Plan of Treatment Not on file Procedures Procedure Name Priority Date/Time Associated Diagnosis Comments POCT RAPID HIV ANTIBODY COMMUNITY SCREENING-ISSA ELIGIBLE STAT 07/09/2024 5:32 AM CLAM DREDGE BOAT CAPTAIN SEPSIS LACTATE WITH REFLEX Timed 07/09/2024 4:33 AM CLAM DREDGE BOAT CAPTAIN ED PERIPHERAL LINE INSERTION Routine 07/09/2024 1:18 AM CLAM DREDGE BOAT CAPTAIN SEPSIS LACTATE WITH REFLEX Timed 07/09/2024 1:15 AM CLAM DREDGE BOAT CAPTAIN RPR STAT 07/09/2024 1:15 AM CLAM DREDGE BOAT CAPTAIN N. GONORRHOEAE/C. TRACHOMATIS AMPLIFICATION STAT 07/09/2024 1:02 AM CLAM DREDGE BOAT CAPTAIN URINALYSIS AND REFLEX TO MICROSCOPIC AND CULTURE STAT 07/09/2024 1:02 AM CLAM DREDGE BOAT CAPTAIN ED PERIPHERAL LINE INSERTION Routine 07/08/2024 10:11 PM CLAM DREDGE BO[employer]TAIN CT CHEST ABDOMEN PELVIS W CONTRAST ED 07/08/2024 9:55 PM CLAM DREDGE BOAT CAPTAIN EGFR STAT 07/08/2024 8:56 PM CLAM DREDGE BOAT CAPTAIN DIFFERENTIAL AUTO STAT 07/08/2024 8:5 6 PM CLAM DREDGE BOAT CAPTAIN SEPSIS LACTATE WITH REFLEX STAT 07/08/2024 8:56 PM CLAM DREDGE BOAT CAPTAIN LIPASE STAT 07/08/2024 8:56 PM CLAM DREDGE BOAT CAPTAIN COMPREHENSIVE METABOLIC PANEL STAT 07/08/2024 8:56 PM CLAM DREDGE BOAT CAPTAIN CBC WITH AUTO DIFFERENTIAL STAT 07/08/2024 8:56 PM CLAM DREDGE BOAT CAPTAIN RESPIRATORY PATHOGEN PANEL STAT 07/08/2024 8:56 PM CLAM DREDGE BOAT CAPTAIN ECG 12-LEAD Routine 07/08/2024 8:28 PM CLAM DREDGE BOAT CAPTAIN XR CHEST 1 VIEW ED 07/08/2024 8:18 PM CLAM DREDGE BOAT CAPTAIN POCT GLUCOSE DEVICE Routine 06/28/2024 4 :24 PM CLAM DREDGE BOAT CAPTAIN POCT GLUCOSE DEVICE Routine 06/28/2024 1 2:30 PM CLAM DREDGE BOAT CAPTAIN POCT GLUCOSE DEVICE Routine 06/28/2024 7 :43 AM CLAM DREDGE BOAT CAPTAIN POCT GLUCOSE DEVICE Routine 06/28/2024 4 :01 AM CLAM DREDGE BOAT CAPTAIN POCT GLUCOSE DEVICE Routine 06/27/2024 1 1:28 PM CLAM DREDGE BOAT CAPTAIN EGFR Routine 06/27/2024 9:30 PM CLAM DREDGE BOAT CAPTAIN PHOSPHORUS Routine 06/27/2024 9:30 PM CL[employer]GE BOAT CAPTAIN MAGNESIUM Routine 06/27/2024 9:30 PM CLAM DREDGE BOAT CAPTAIN BASIC METABOLIC PANEL Routine 06/27/2024 9:30 PM CLAM DREDGE BOAT CAPTAIN POCT GLUCOSE DEVICE Routine 06/27/2024 8 :39 PM CLAM DREDGE BOAT CAPTAIN POCT GLUCOSE DEVICE Routine 06/27/2024 5 :10 PM CLAM DREDGE BOAT CAPTAIN POCT GLUCOSE DEVICE Routine 06/27/2024 4 :27 PM CLAM DREDGE BOAT CAPTAIN POCT GLUCOSE DEVICE Routine 06/27/2024 1 :06 PM CLAM DREDGE BOAT CAPTAIN POCT GLUCOSE DEVICE Routine 06/27/2024 9 :59 AM CLAM DREDGE BOAT CAPTAIN EGFR Routine 06/26/2024 10:21 PM CLAM DREDGE BOAT CAPTAIN DIFFERENTIAL AUTO Routine 06/26/2024 10: 21 PM CLAM DREDGE BOAT CAPTAIN PHOSPHORUS Routine 06/26/2024 10:21 PM CLAM DREDGE BOAT CAPTAIN MAGNESIUM Routine 06/26/2024 10:21 PM CLAM DREDGE BOAT CAPTAIN CBC WITH AUTO DIFFERENTIAL Routine 06/26/2024 10:21 PM CLAM DREDGE BOAT CAPTAIN BASIC METABOLIC PANEL Routine 06/26/2024 10:21 PM CLAM DREDGE BOAT CAPTAIN HEPATITIS B SURFACE ANTIGEN Routine 06/26/2024 10:21 PM CLAM DREDGE BOAT CAPTAIN PHOSPHORUS Routine 06/26/2024 3:21 PM CLAM DREDGE BOAT CAPTAIN RPR Routine 06/26/2024 3:21 PM CLAM DREDGE BOAT CAPTAIN HEPATITIS C ANTIBODY Routine 06/26/2024 3:21 PM CLAM DREDGE BOAT CAPTAIN HIV 1/2 ANTIBODY PLUS P24 ANTIGEN Routine 06/26/2024 3:21 PM CLAM DREDGE BOAT CAPTAIN EGFR Routine 06/26/2024 12:16 AM CLAM DREDGE BOAT CAPTAIN PHOSPHORUS Routine 06/26/2024 12:16 AM CLAM DREDGE BOAT CAPTAIN MAGNESIUM Routine 06/26/2024 12:16 AM CLAM DREDGE BOAT CAPTAIN BASIC METABOLIC PANEL Routine 06/26/2024 12:16 AM CLAM DREDGE BOAT CAPTAIN POCT GLUCOSE DEVICE Routine 06/23/2024 1 1:36 AM CLAM DREDGE BOAT CAPTAIN CBC WITHOUT DIFFERENTIAL Timed 06/23/2024 9:07 AM CLAM DREDGE BOAT CAPTAIN VANCOMYCIN LEVEL TROUGH Routine 06/23/2024 9:00 AM CLAM DREDGE BOAT CAPTAIN EGFR Routine 06/23/2024 9:00 AM CLAM DREDGE BOAT CAPTAIN MAGNESIUM Routine 06/23/2024 9:00 AM CLAM DREDGE BOAT CAPTAIN PHOSPHORUS Routine 06/23/2024 9:00 AM CLAM DREDGE BOAT CAPTAIN BASIC METABOLIC PANEL Routine 06/23/2024 9:00 AM CLAM DREDGE BOAT CAPTAIN G TO GJ-TUBE REPLACEMENT IP Routine 06/22/2024 1:24 PM CLAM DREDGE BOAT CAPTAIN C. DIFFICILE TESTING Routine 06/21/2024 11:11 AM CLAM DREDGE BOAT CAPTAIN INFECTION PREVENTION VRE CULTURE Routine 06/21/2024 11:10 AM CLAM DREDGE BOAT CAPTAIN VANCOMYCIN LEVEL TROUGH Timed 06/21/2024 7:16 AM CLAM DREDGE BOAT CAPTAIN EGFR Routine 06/21/2024 5:03 AM CLAM DREDGE BOAT CAPTAIN DIFFERENTIAL AUTO Routine 06/21/2024 5:0 3 AM CLAM DREDGE BOAT CAPTAIN PHOSPHORUS Timed 06/21/2024 5:03 AM CLAM DREDGE BOAT CAPTAIN MAGNESIUM Routine 06/21/2024 5:03 AM CLAM DREDGE BOAT CAPTAIN COMPREHENSIVE METABOLIC PANEL Routine 06/21/2024 5:03 AM CLAM DREDGE BOAT CAPTAIN CBC WITH AUTO DIFFERENTIAL Routine 06/21/2024 5:03 AM CLAM DREDGE BOAT CAPTAIN MSSA/MRSA (STAPHYLOCOCCUS AUREUS) CULTURE Routine 06/20/2024 10:30 PM CLAM DREDGE BOAT CAPTAIN XR ABDOMEN AP 1 VIEW IP Routine 06/20/2024 10:29 AM CLAM DREDGE BOAT CAPTAIN URINALYSIS, MICROSCOPIC ONLY Routine 06/19/2024 9:34 PM CLAM DREDGE BOAT CAPTAIN URINALYSIS AND REFLEX TO MICROSCOPIC AND CULTURE Routine 06/19/2024 9:34 PM CLAM DREDGE BOAT CAPTAIN DIFFERENTIAL AUTO Routine 06/19/2024 9:2 8 PM CLAM DREDGE BOAT CAPTAIN CBC WITH AUTO DIFFERENTIAL Routine 06/19/2024 9:28 PM CLAM DREDGE BOAT CAPTAIN VALPROIC ACID LEVEL, TOTAL Timed 06/19/2024 9:28 PM CLAM DREDGE BOAT CAPTAIN LACOSAMIDE Routine 06/19/2024 9:28 PM CLAM DREDGE BOAT CAPTAIN RESPIRATORY PATHOGEN PANEL Routine 06/19/2024 9:10 PM CLAM DREDGE BOAT CAPTAIN AEROBIC CULTURE AND GRAM STAIN Routine 06/19/2024 6:53 PM CLAM DREDGE BOAT CAPTAIN XR CHEST 1 VIEW IP Routine 06/19/2024 6:47 PM CLAM DREDGE BOAT CAPTAIN RESPIRATORY PATHOGEN PANEL Routine 06/19/2024 6:46 PM CLAM DREDGE BOAT CAPTAIN XR ABDOMEN AP 1 VIEW IP Routine 06/19/2024 4:09 PM CLAM DREDGE BOAT CAPTAIN XR CHEST 1 VIEW IP Routine 06/19/2024 4:08 PM CLAM DREDGE BOAT CAPTAIN EGFR Timed 06/19/2024 2:47 PM CLAM DREDGE BOAT CAPTAIN DIFFERENTIAL AUTO Timed 06/19/2024 2:4 7 PM CLAM DREDGE BOAT CAPTAIN PHOSPHORUS Timed 06/19/2024 2:47 PM CLAM [employer]EDGE BOAT CAPTAIN MAGNESIUM Timed 06/19/2024 2:47 PM CLAM DREDGE BOAT CAPTAIN COMPREHENSIVE METABOLIC PANEL Timed 06/19/2024 2:47 PM CLAM DREDGE BOAT CAPTAIN CBC WITH AUTO DIFFERENTIAL Timed 06/19/2024 2:47 PM CLAM DREDGE BOAT CAPTAIN POCT GLUCOSE DEVICE Routine 06/19/2024 2 :25 PM CLAM DREDGE BOAT CAPTAIN XR ABDOMEN AP 1 VIEW IP Routine 06/16/2024 6:16 PM CLAM DREDGE BOAT CAPTAIN EGFR Routine 06/16/2024 12:42 PM CLAM DREDGE BOAT CAPTAIN DIFFERENTIAL AUTO Routine 06/16/2024 12: 42 PM CLAM [employer]EDGE BOAT CAPTAIN PHOSPHORUS Routine 06/16/2024 12:42 PM CLAM DREDGE BOAT CAPTAIN MAGNESIUM Routine 06/16/2024 12:42 PM CLAM DREDGE BOAT CAPTAIN COMPREHENSIVE METABOLIC PANEL Routine 06/16/2024 12:42 PM CLAM DREDGE BOAT CAPTAIN CBC WITH AUTO DIFFERENTIAL Routine 06/16/2024 12:42 PM CLAM DREDGE BOAT CAPTAIN XR ABDOMEN AP 1 VIEW ED Urgent/IP Urgent 06/15/2024 1:57 AM CLAM DREDGE BOAT CAPTAIN EGFR Routine 06/13/2024 4:59 AM CLAM DREDGE BOAT CAPTAIN DIFFERENTIAL AUTO Routine 06/13/2024 4: 59 AM CLAM DREDGE BOAT CAPTAIN VALPROIC ACID LEVEL, TOTAL Routine 06/13/2024 4:59 AM CLAM DREDGE BOAT CAPTAIN CBC WITH AUTO DIFFERENTIAL Routine 06/13/2024 4:59 AM CLAM [employer]EDGE BOAT CAPTAIN PHOSPHORUS Routine 06/13/2024 4:59 AM CLAM [employer]EDGE BOAT CAPTAIN MAGNESIUM Routine 06/13/2024 4:59 AM CLAM DREDGE BOAT CAPTAIN COMPREHENSIVE METABOLIC PANEL Routine 06/13/2024 4:59 AM CLAM DREDGE BOAT CAPTAIN LACOSAMIDE Routine 06/13/2024 4:59 AM CLAM DREDGE BOAT CAPTAIN BLOOD CULTURE Routine 06/13/2024 4:59 AM CLAM DREDGE BOAT CAPTAIN TSH Routine 06/12/2024 3:51 PM CLAM DREDGE BOAT CAPTAIN DIFFERENTIAL AUTO Routine 06/12/2024 3:3 0 PM CLAM DREDGE BOAT CAPTAIN CBC WITH AUTO DIFFERENTIAL Routine 06/12/2024 3:30 PM CLAM DREDGE BOAT CAPTAIN HEMOGLOBIN A1C Routine 06/12/2024 3:30 PM CLAM DREDGE BOAT CAPTAIN TROPONIN I HIGH-SENSITIVITY 4-HOUR Timed 06/12/2024 3:27 PM CLAM DREDGE BOAT CAPTAIN XR CHEST 1 VIEW ED 06/12/2024 2:47 PM CLAM DREDGE BOAT CAPTAIN URINALYSIS AND REFLEX TO MICROSCOPIC AND CULTURE STAT 06/12/2024 2:38 PM CLAM DREDGE BOAT CAPTAIN DIFFERENTIAL AUTO STAT 06/12/2024 2:2 3 PM CLAM DREDGE BOAT CAPTAIN CBC WITH AUTO DIFFERENTIAL STAT 06/12/2024 2:23 PM CLAM DREDGE BOAT CAPTAIN TROPONIN I HIGH-SENSITIVITY 2-HOUR Timed 06/12/2024 1:56 PM CLAM DREDGE BOAT [employer]TAIN CT ABDOMEN PELVIS W CONTRAST ED 06/12/2024 12:22 PM CLAM DREDGE BOAT CAPTAIN ED PERIPHERAL LINE INSERTION Routine 06/12/2024 11:50 AM CLAM DREDGE BOAT CAPTAIN INFLUENZA A/B, RSV, AND COVID-19 PCR Routine 06/12/2024 11:39 AM CLAM DREDGE BOAT CAPTAIN POCT CREATININE - DEVICE Routine 06/12/2024 11:29 AM CLAM DREDGE BOAT CAPTAIN EGFR STAT 06/12/2024 11:22 AM CLAM DREDGE BOAT CAPTAIN DIFFERENTIAL AUTO STAT 06/12/2024 11: 22 AM CLAM DREDGE BOAT CAPTAIN TROPONIN I HIGH-SENSITIVITY SERIES (BASELINE, 2HR, 4HR, 6HR) STAT 06/12/2024 11:22 AM CLAM DREDGE BOAT CAPTAIN LIPASE STAT 06/12/2024 11:22 AM CLAM DREDGE BOAT CAPTAIN CBC WITH AUTO DIFFERENTIAL STAT 06/12/2024 11:22 AM CLAM DREDGE BOAT CAPTAIN COMPREHENSIVE METABOLIC PANEL STAT 06/12/2024 11:22 AM CLAM DREDGE BOAT CAPTAIN VALPROIC ACID LEVEL, TOTAL STAT 06/12/2024 11:22 AM CLAM DREDGE BOAT CAPTAIN ECG 12-LEAD Routine 06/12/2024 11:01 AM CLAM DREDGE BOAT CAPTAIN TNI WITH LIPID PANEL Routine 08/24/2017 4:57 PM CDT from Last 3 Months or Most Recently Relevant to Health Maintenance Results * POCT Rapid HIV Antibody Community Screening-Issa Eligible (07/09/2024 5:32 AM CLAM DREDGE BOAT CAPTAIN) Rapid HIV, POC Negative Negative Lot Number [id number] QC Control Line Acceptable Blood 07/09/2024 5:32 AM CLAM DREDGE BOAT CAPTAIN Naa Tam MD POINT OF CARE TEST ORDER NICHOLE Final Result * Sepsis Lactate w/ Reflex (07/09/2024 4:33 AM CLAM DREDGE BOAT CAPTAIN) Pathologist [facility] Sepsis Lactate 2.0 0.7 - 2.0 mmol/L Blood 07/09/2024 4:33 AM CLAM DREDGE BOAT CAPTAIN 07/09/2024 4:42 AM CLAM DREDGE BOAT CAPTAIN Naa Tam MD LAB BLOOD ORDERABLES Fin al Result [facility] Department [place] [address] * ED PERIPHERAL LINE INSERTION (07/09/2024 1:18 AM CLAM DREDGE BOAT CAPTAIN) Narrative Cherie Damian MD - 07/09/2024 1:18 AM CLAM DREDGE BOAT CAPTAIN Atul Barba MD 07/09/2024 1:18 AM Peripheral [...] Sepsis Lactate w/ Reflex (07/09/2024 1:15 AM CLAM DREDGE BOAT CAPTAIN) [facility] Sepsis Lactate 2.8(H) 0.7 - 2.0 mmol/L Blood 07/09/2024 1:15 AM CLAM DREDGE BOAT CAPTAIN 07/09/2024 1:46 AM CLAM DREDGE BOAT CAPTAIN Naa Tam MD LAB BLOOD ORDERABLES Fin al Result Performing Organization Address [facility]/ZIP Co de Phone Number [facility] Department [place] [address] * RPR Blood (07/09/2024 1:15 AM CLAM DREDGE BOAT CAPTAIN) [facility] RPR Nonreactive Nonreactive Blood 07/09/2024 1:15 AM CLAM DREDGE BOAT CAPTAIN 07/09/2024 1:40 AM CLAM DREDGE BOAT CAPTAIN Result [facility] Naa Tam MD LAB MICROBIOLOGY - GENER AL ORDERABLES Final Result Performing Organization Address [facility] de Phone Number [facility] Department [place] [address] * N. gonorrhoeae/C. trachomatis Amplification Urine (07/09/2024 1:02 AM CLAM DREDGE BOAT CAPTAIN) [facility] C. trachomatis Not Detected Not Detected [facility] N. gonorrhoeae Not Detected Not Detected [facility] Comment: Interpretive Data This assay detects Chlamydia trachomatis and Neisseria gonorrhoeae by nucleic acid amplification testing (NAAT). This assay has been cleared by the [place] Food and Drug administration. The performance characteristics of this test have been verified by the [facility] Molecular Infectious Disease laboratory. The performance characteristics of this test have not been evaluated in individuals less than 14 years of age. Current Interpretive Data last revised 2023. Urine (None) 07/09/2024 1:02 AM CLAM DREDGE BOAT CAPTAIN 07/09/2024 1:35 AM CLAM DREDGE BOAT CAPTAIN us Naa Tam MD LAB MICROBIOLOGY - GENER AL ORDERABLES Final Result Performing Organization Address City/[facility]/ZIP Co de Phone Number [facility] Department [place] [address] [facility] * (ABNORMAL) Urinalysis reflex to microscopic and culture Urine, clean voided (07/09/2024 1:02 AM CLAM DREDGE BOAT CAPTAIN) Color, ur Straw Yellow Clarity, ur Clear Clear [facility] Specific gravity, ur >1.042(H) 1.003 - 1.030 [facility] pH, urine 7.5 [facility] Comment: Interpretive Data U rine pH is affected by diet, medications, systemic acid-base disturbances, and renal tubular function. pH may affect urinary stone formation. For example, urine pH below 6.0 may help reduce the tendency for calcium phosphate stones and pH greater than 6.0 may reduce the tendency for uric acid stone formation. Source: [facility] Current Interpretive Data was last revised on 2017 Protein, ur ql Trace Negative [facility] Glucose, ur ql Negative Negative [facility] Ketones, ur Negative Negative [facility] Bilirubin, ur Negative Negative [facility] Blood, ur Negative Negative [facility] Urobilinogen, ur <2.0 <2.0 mg/dL [facility] Nitrite, ur Negative Negative [facility] Leukocyte esterase, ur Negative Negative [facility] UA reflex comment Reflex conditions for microscopic UA and culture not met. [facility] Urine, clean voided 07/09/2024 1:02 AM CLAM [employer]EDGE BOAT CAPTAIN 07/09/2024 1:15 AM CLAM [employer]EDGE BOAT CAPTAIN us Naa Tam MD LAB MICROBIOLOGY - GENER AL ORDERABLES Final Result Performing Organization Address [facility] Co de Phone Number [facility] Department [place] [address] * ED PERIPHERAL LINE INSERTION (07/08/2024 10:11 PM CLAM DREDGE BOAT CAPTAIN) Narrative Tri Martinez MD - 07/08/2024 10:11 PM CLAM [employer] BOAT CAPTAIN Atul Barba MD 07/08/2024 10:12 PM Peripheral [...] Abdomen Pelvis W Contrast (07/08/2024 9:55 PM CLAM [employer]ED[employer] BOAT CAPTAIN) Anatomical Region Laterality Modality Body N/A Computed Tomogra phy 07/08/2024 10:3 2 PM CLAM [employer]EDGE BOAT CAPTAIN Impressions 07/09/2024 7:23 AM CLAM [employer]EDGE BOAT CAPTAIN Liquid stool within the colon, indicative of diarrheal state. Otherwise, no acute abnormalities in the abdomen or pelvis. Dictated by: Delia Morton MD The radiology attending physician has personally reviewed this study, and had reviewed and/or edited this written report and agrees with it. Electronically signed by: Marlon Kolher M.D. Narrative 07/09/2024 7:23 AM CLAM DREDGE BOAT CAPTAIN EXAMINATION: Computed tomography of the chest, abdomen [...] Sepsis Lactate w/ Reflex (07/08/2024 8:56 PM CLAM DREDGE BOAT CAPTAIN) [facility] Sepsis Lactate 2.4(H) 0.7 - 2.0 mmol/L Blood 07/08/2024 8:56 PM CL[employer]ED[employer] BOAT CAPTAIN 07/08/2024 9:24 PM CLAM [employer]EDGE BOAT CAPTAIN us Naa Tam MD LAB BLOOD ORDERABLES Fin al Result [facility] Department of Laboratories [place], [place] [id number] * eGFR (07/08/2024 8:56 PM CLAM DREDGE BOAT CAPTAIN) [facility] eGFR >90 >=60 mL/min/1. 73 m2 [...] last reviewed 2021. Blood 07/08/2024 8:56 PM CLAM [employer]EDGE BOAT CAPTAIN 07/08/2024 9:26 PM CLAM [employer]EDGE BOAT CAPTAIN us Naa Tam MD LAB BLOOD ORDERABLES Fin al Result [facility] Department [place] [address] * Differential, auto (07/08/2024 8:56 PM CLAM DREDGE BOAT CAPTAIN) Neutrophil abs 4.4 1.5 - 6.5 K/cumm Imm gran abs 0.0 0.0 - 0.1 K/cumm [facility] Lymphocyte abs 2.6 0.8 - 3.3 K/cumm [facility] Monocyte abs 0.5 0.2 - 0.8 K/cumm [facility] Eosinophil abs 0.5 0.0 - 0.5 K/cumm [facility] Basophil abs 0.0 0.0 - 0.1 K/cumm [facility] Neutrophil pct 54.7 % [facility] Comment: Interpretive Data Percent cell count reference ranges are not reported, since discordance with absolute values may lead to misinterpretation of CBC data. Current Interpretive Data was last revised on 2017. Imm gran pct 0.2 % [facility] Comment: Interpretive Data Percent cell count reference ranges are not reported, since discordance with absolute values may lead to misinterpretation of CBC data. Current Interpretive Data was last revised on 2017. Lymphocyte pct 32.1 % [facility] Comment: Interpretive Data Percent cell count reference ranges are not reported, since discordance with absolute values may lead to misinterpretation of CBC data. Current Interpretive Data was last revised on 2017. Monocyte pct 6.6 % [facility] Comment: Interpretive Data Percent cell count reference ranges are not reported, since discordance with absolute values may lead to misinterpretation of CBC data. Current Interpretive Data was last revised on 2017. Eosinophil pct 6.0 % [facility] Comment: Interpretive Data Percent cell count reference ranges are not reported, since discordance with absolute values may lead to misinterpretation of CBC data. Current Interpretive Data was last revised on 2017. Basophil pct 0.4 % [facility] Comment: Interpretive Data Percent cell count reference ranges are not reported, since discordance with absolute values may lead to misinterpretation of CBC data. Current Interpretive Data was last revised on 2017. Blood 07/08/2024 8:56 PM [employer] 07/08/2024 9:27 PM [employer] us Naa Tam MD LAB BLOOD ORDERABLES Fin al Result [facility] Department [place] [address] * Respiratory pathogen panel Nasopharyngeal (07/08/2024 8:56 PM [employer] CAPTAIN) Pathologist [facility] Influenza A RNA Not Detected Not Detected Influenza B RNA Not Detected Not Detected [facility] RSV RNA Not Detected Not Detected [facility] COVID-19 RNA Not Detected Not Detected [facility] Coronavirus 229E RNA Not Detected Not Detected [facility] Coronavirus HKU1 RNA Not Detected Not Detected [facility] Coronavirus NL63 RNA Not Detected Not Detected [facility] Coronavirus OC43 RNA Not Detected Not Detected [facility] Adenovirus DNA Not Detected Not Detected [facility] Metapneumovirus RNA Not Detected Not Detected [facility] Rhinovirus/Enterov irus RNA Not Detected Not Detected [facility] Parainfluenza 1 RNA Not Detected Not Detected [facility] Parainfluenza 2 RNA Not Detected Not Detected [facility] Parainfluenza 3 RNA Not Detected Not Detected [facility] Parainfluenza 4 RNA Not Detected Not Detected [facility] B. pertussis DNA Not Detected Not Detected [facility] B. parapertussis DNA Not Detected Not Detected [facility] C. pneumoniae DNA Not Detected Not Detected [facility] M. 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 The performance of additional specimen types has been assessed by the performing laboratory. The performance characteristics of this assay have been determined by [facility] Molecular Infectious Disease Laboratory. Current interpretive data was last revised on 22. us Naa Tam MD LAB MICROBIOLOGY - [facility] ORDERABLES Final Result [facility] Department [place] [address] * (ABNORMAL) CBC with auto differential (07/08/2024 8:56 PM [employer]) Pathologist [facility] WBC 8.0 3.8 - 9.9 K/cumm Hgb 14.4 13.0 - 17.5 g/dL [facility] Hct 43.3 38.9 - 50.3 % [facility] Plt 236 150 - 400 K/cumm [facility] MPV 12.4(H) 9.1 - 12.3 fL [facility] RBC 4.49 4.30 - 5.80 M/cumm [facility] MCV 96.4 81.3 - 96.4 fL [facility] MCH 32.1 27.1 - 33.3 pg [facility] MCHC 33.3 32.3 - 35.7 g/dL [facility] RDW CV 13.5 11.1 - 14.9 % [facility] RDW SD 47.9 35.7 - 48.1 fL [facility] NRBC abs 0.00 0.00 - 0.01 K/cumm [facility] Blood 07/08/2024 8:56 PM [employer] 07/08/2024 9:27 PM [employer]TAIN Naa Tam MD LAB BLOOD ORDERABLES Fin al Result Performing Organization Address City/[facility]/ZIP Co de Phone Number [facility] Department [place] [address] * Lipase (07/08/2024 8:56 PM [employer]TAIN) Pathologist [facility] Lipase 32 10 - 99 Units/L Blood 07/08/2024 8:56 PM [employer]TAIN 07/08/2024 9:26 PM [employer] us Naa Tam MD LAB BLOOD ORDERABLES Fin al Result Performing Organization Address [facility] de Phone Number [facility] Department [place] [address] * (ABNORMAL) Comprehensive metabolic panel (07/08/2024 8:56 PM [employer]TAIN) [facility] Sodium 141 135 - 145 mmol/L Potassium, pl 4.5 3.3 - 4.9 mmol/L [facility] Chloride 102 97 - 110 mmol/L [facility] CO2 28 22 - 32 mmol/L [facility] Anion gap 11 2 - 15 mmol/L [facility] BUN 15 6 - 25 mg/dL [facility] Creatinine 0.63(L) 0.80 - 1.30 mg/dL [facility] Glucose 110 70 - 199 mg/dL [facility] Comment: Interpretive Data Fasting glucose >/= 126 [...] 2022. Calcium 10.1 8.5 - 10.3 mg/dL [facility] Bilirubin, total 0.2 0.1 - 1.2 mg/dL [facility] Protein, pl 8.0 6.5 - 8.5 g/dL [facility] Albumin 4.1 3.5 - 5.0 g/dL [facility] Alk phos 110 40 - 130 Units/L [facility] ALT 28 7 - 55 Units/L [facility] AST 26 10 - 50 Units/L [facility] Blood 07/08/2024 8:56 PM [employer] 07/08/2024 9:26 PM [employer] us Naa Tam MD LAB BLOOD ORDERABLES Fin al Result Performing Organization Address [facility] Co de Phone Number [facility] Department [place] [address] * ECG 12-LEAD (07/08/2024 8:28 PM [employer]) Narrative [facility] - 07/08/2024 8:28 PM [employer]TAIN Naa Tam MD 07/08/2024 8:30 PM ECG [...] ORDERABLES Final Re sult Performing Organization Address City/[facility]/ZIP Co de Phone Number [facility] * XR Chest 1 View (07/08/2024 8:18 PM [employer]) Anatomical Region Laterality Modality Body, Chest N/A Computed Radiogr aphy 07/08/2024 8:28 PM [employer]TAIN Impressions 07/08/2024 9:56 PM [employer]TAIN Comparison is made to chest graft dated [...] Sekou Wolf M.D. Narrative 07/08/2024 9:56 PM [employer]TAIN EXAMINATION: 1 view chest radiograph Procedure Note [...] Result * POCT glucose (06/28/2024 4:24 PM [employer]) Glucose, POC 191 70 - 199 mg/dL Blood 06/28/2024 4:24 PM [employer]TAIN 06/28/2024 4:24 PM [employer] us Kami Dupont MD LAB POCT ORDERABLES - DEV ICE Final Result [facility] Department [place] [address] * POCT glucose (06/28/2024 12:30 PM [employer]) Glucose, POC 197 70 - 199 mg/dL Blood 06/28/2024 12:3 0 PM [employer]TAIN 06/28/2024 12:30 PM [employer]TAIN Kami Dupont MD LAB POCT ORDERABLES - DEV ICE Final Result Performing Organization Address City/[facility] Co de Phone Number [facility] [place] [address] * POCT glucose (06/28/2024 7:43 AM [employer]) Glucose, POC 191 70 - 199 mg/dL Blood 06/28/2024 7:43 AM [employer]TAIN 06/28/2024 7:43 AM [employer]TAIN Kami Dupont MD LAB POCT ORDERABLES - DEV ICE Final Result Performing Organization Address [facility] Co de Phone Number [facility] [place] [address] * POCT glucose (06/28/2024 4:01 AM CL[employer]) Glucose, POC 173 70 - 199 mg/dL Blood 06/28/2024 4:01 AM [employer]TAIN 06/28/2024 4:01 AM [employer]TAIN Kami Dupont MD LAB POCT ORDERABLES - DEV ICE Final Result Performing Organization Address [facility] de Phone Number [facility] [place] [address] * (ABNORMAL) POCT glucose (06/27/2024 11:28 PM [employer]) Glucose, POC 220(H) 70 - 199 mg/dL Comment:Use Protocol Glucose comment 1 Use Protocol [facility] Blood 06/27/2024 11:2 8 PM [employer]TAIN 06/27/2024 11:28 PM [employer]TAIN Kami Dupont MD LAB POCT ORDERABLES - DEV ICE Final Result Performing Organization Address [facility] Co de Phone Number [facility] [place] [address] * eGFR (06/27/2024 9:30 PM CL[employer]TAIN) eGFR >90 >=60 mL/min/1. 73 m2 Comment: [...] last reviewed 2021. Blood 06/27/2024 9:30 PM [employer]TAIN 06/27/2024 9:45 PM [employer]TAIN Kami Dupont MD LAB BLOOD ORDERABLES Lulu l Result Performing Organization Address [facility]/ZIP Co de Phone Number [facility] Department [place] [address] * Phosphorus (06/27/2024 9:30 PM CL[employer]TAIN) Phosphorus, pl 3.3 2.3 - 4.5 mg/dL Comment:Repeated and Verifie d Blood 06/27/2024 9:30 PM [employer]TAIN 06/27/2024 9:45 PM [employer]TAIN Kami Dupont MD LAB BLOOD ORDERABLES Lulu l Result Performing Organization Address City/[facility] Co de Phone Number [facility] [place] [address] * Magnesium (06/27/2024 9:30 PM CL[employer] CAPTAIN) Pathologist [facility] Magnesium 1.9 1.4 - 2.5 mg/dL Blood 06/27/2024 9:30 PM [employer]TAIN 06/27/2024 9:45 PM CL[employer]TAIN Kami Dupont MD LAB BLOOD ORDERABLES Lulu l Result Performing Organization Address [facility] de Phone Number [facility] [place] [address] * (ABNORMAL) Basic metabolic panel (06/27/2024 9:30 PM CL[employer] CAPTAIN) Pathologist [facility] Sodium 141 135 - 145 mmol/L Potassium, pl 4.4 3.3 - 4.9 mmol/L [facility] Chloride 105 97 - 110 mmol/L [facility] CO2 28 22 - 32 mmol/L [facility] Anion gap 8 2 - 15 mmol/L [facility] BUN 9 6 - 25 mg/dL [facility] Creatinine 0.47(L) 0.80 - 1.30 mg/dL [facility] Glucose 208(H) 70 - 199 mg/dL [facility] Comment: Interpretive Data Fasting glucose >/= 126 [...] 2022. Calcium 8.9 8.5 - 10.3 mg/dL [facility] Blood 06/27/2024 9:30 PM [employer]TAIN 06/27/2024 9:45 PM [employer]TAIN Kami Dupont MD LAB BLOOD ORDERABLES Lulu l Result Performing Organization Address City/[facility] Co de Phone Number [facility] [place] [address] * POCT glucose (06/27/2024 8:39 PM CL[employer]TAIN) Glucose, POC 195 70 - 199 mg/dL Blood 06/27/2024 8:39 PM [employer]TAIN 06/27/2024 8:39 PM [employer]TAIN Kami Dupont MD LAB POCT ORDERABLES - DEV ICE Final Result Performing Organization Address [facility] Co de Phone Number [facility] [place] [address] * POCT glucose (06/27/2024 5:10 PM CL[employer]TAIN) Glucose, POC 194 70 - 199 mg/dL Blood 06/27/2024 5:10 PM [employer]TAIN 06/27/2024 5:10 PM [employer]TAIN Kami Dupont MD LAB POCT ORDERABLES - DEV ICE Final Result Performing Organization Address [facility] Co de Phone Number [facility] [place] [address] * (ABNORMAL) POCT glucose (06/27/2024 4:27 PM CL[employer]TAIN) Glucose, POC 224(H) 70 - 199 mg/dL Blood 06/27/2024 4:27 PM [employer] CAPTAIN 06/27/2024 4:27 PM [employer]TAIN us Kami Dupont MD LAB POCT ORDERABLES - DEV ICE Final Result Performing Organization Address [facility] de Phone Number [facility] [place] [address] * POCT glucose (06/27/2024 1:06 PM CL[employer]TAIN) Glucose, POC 173 70 - 199 mg/dL Blood 06/27/2024 1:06 PM [employer] CAPTAIN 06/27/2024 1:06 PM [employer]TAIN Kami Dupont MD LAB POCT ORDERABLES - DEV ICE Final Result Performing Organization Address [facility] de Phone Number [facility] [place] [address] * POCT glucose (06/27/2024 9:59 AM CL[employer]TAIN) Glucose, POC 158 70 - 199 mg/dL Blood 06/27/2024 9:59 AM [employer] CAPTAIN 06/27/2024 9:59 AM [employer]TAIN Kami Dupont MD LAB POCT ORDERABLES - DEV ICE Final Result Performing Organization Address [facility] de Phone Number [facility] [place] [address] * eGFR (06/26/2024 10:21 PM CL[employer] CAPTAIN) eGFR >90 >=60 mL/min/1. 73 m2 Comment: [...] reviewed 2021. Blood 06/26/2024 10:2 1 PM [employer]TAIN 06/26/2024 10:53 PM CL[employer] CAPTAIN us Kami Dupont MD LAB BLOOD ORDERABLES Lulu coley Result [facility] Department [place] [address] * Differential, auto (06/26/2024 10:21 PM CL[employer] CAPTAIN) Pathologist [facility] Neutrophil abs 5.0 1.5 - 6.5 K/cumm Imm gran abs 0.0 0.0 - 0.1 K/cumm [facility] Lymphocyte abs 2.4 0.8 - 3.3 K/cumm [facility] Monocyte abs 0.8 0.2 - 0.8 K/cumm [facility] Eosinophil abs 0.4 0.0 - 0.5 K/cumm [facility] Basophil abs 0.0 0.0 - 0.1 K/cumm [facility] Neutrophil pct 58.2 % [facility] Comment: Interpretive Data Percent cell count reference ranges are not reported, since discordance with absolute values may lead to misinterpretation of CBC data. Current Interpretive Data was last revised on 2017. Imm gran pct 0.3 % [facility] Comment: Interpretive Data Percent cell count reference ranges are not reported, since discordance with absolute values may lead to misinterpretation of CBC data. Current Interpretive Data was last revised on 2017. Lymphocyte pct 27.9 % [facility] Comment: Interpretive Data Percent cell count reference ranges are not reported, since discordance with absolute values may lead to misinterpretation of CBC data. Current Interpretive Data was last revised on 2017. Monocyte pct 9.2 % [facility] Comment: Interpretive Data Percent cell count reference ranges are not reported, since discordance with absolute values may lead to misinterpretation of CBC data. Current Interpretive Data was last revised on 2017. Eosinophil pct 4.1 % [facility] Comment: Interpretive Data Percent cell count reference ranges are not reported, since discordance with absolute values may lead to misinterpretation of CBC data. Current Interpretive Data was last revised on 2017. Basophil pct 0.3 % [facility] Comment: Interpretive Data Percent cell count reference ranges are not reported, since discordance with absolute values may lead to misinterpretation of CBC data. Current Interpretive Data was last revised on 2017. Blood 06/26/2024 10:2 1 PM [employer]TAIN 06/26/2024 10:53 PM [employer]TAIN us Kami Dupont MD LAB BLOOD ORDERABLES Lulu coley Result [facility] Department [place] [address] * (ABNORMAL) CBC with auto differential (06/26/2024 10:21 PM CL[employer]TAIN) WBC 8.6 3.8 - 9.9 K/cumm Hgb 13.1 13.0 - 17.5 g/dL [facility] Hct 39.1 38.9 - 50.3 % [facility] Plt 173 150 - 400 K/cumm [facility] MPV 13.1(H) 9.1 - 12.3 fL [facility] RBC 4.07(L) 4.30 - 5.80 M/cumm [facility] MCV 96.1 81.3 - 96.4 fL [facility] MCH 32.2 27.1 - 33.3 pg [facility] MCHC 33.5 32.3 - 35.7 g/dL [facility] RDW CV 13.5 11.1 - 14.9 % [facility] RDW SD 47.8 35.7 - 48.1 fL [facility] NRBC abs 0.00 0.00 - 0.01 K/cumm [facility] Blood 06/26/2024 10:2 1 PM [employer]TAIN 06/26/2024 10:53 PM [employer]TAIN Kami Dupont MD LAB BLOOD ORDERABLES Lulu l Result Performing Organization Address [facility] de Phone Number [facility] [place] [address] * Hepatitis B Surface Antigen Blood (06/26/2024 10:21 PM CL[employer] CAPTAIN) Pathologist [facility] HepBsAg Nonreactive Nonreactive Blood 06/26/2024 10:2 1 PM [employer]TAIN 06/26/2024 10:53 PM CL[employer] CAPTAIN Kami Dupont MD LAB MICROBIOLOGY - GENERA L ORDERABLES Final Result Performing Organization Address [facility] de Phone Number [facility] [place] [address] * (ABNORMAL) Phosphorus (06/26/2024 10:21 PM CL[employer] CAPTAIN) Pathologist [facility] Phosphorus, pl <0.7(L) 2.3 - 4.5 mg/dL Comment:Repeated and Verifie d Blood 06/26/2024 10:2 1 PM [employer]TAIN 06/26/2024 10:53 PM CL[employer] CAPTAIN Kami Dupont MD LAB BLOOD ORDERABLES Lulu l Result Performing Organization Address [facility] de Phone Number [facility] [place] [address] * Magnesium (06/26/2024 10:21 PM CL[employer] CAPTAIN) Pathologist [facility] Magnesium 2.0 1.4 - 2.5 mg/dL Blood 06/26/2024 10:2 1 PM [employer]TAIN 06/26/2024 10:53 PM CL[employer] CAPTAIN Kami Dupont MD LAB BLOOD ORDERABLES Lulu l Result Performing Organization Address City/[facility]/ZIP Co de Phone Number [facility] Department [place] [address] * (ABNORMAL) Basic metabolic panel (06/26/2024 10:21 PM CL[employer] CAPTAIN) [facility] Sodium 141 135 - 145 mmol/L Potassium, pl 4.7 3.3 - 4.9 mmol/L [facility] Chloride 106 97 - 110 mmol/L [facility] CO2 28 22 - 32 mmol/L [facility] Anion gap 7 2 - 15 mmol/L [facility] BUN 11 6 - 25 mg/dL [facility] Creatinine 0.47(L) 0.80 - 1.30 mg/dL [facility] Glucose 213(H) 70 - 199 mg/dL [facility] Comment: Interpretive Data Fasting glucose >/= 126 [...] 2022. Calcium 9.3 8.5 - 10.3 mg/dL [facility] Blood 06/26/2024 10:2 1 PM [employer]TAIN 06/26/2024 10:53 PM CL[employer]TAIN Kami Dupont MD LAB BLOOD ORDERABLES Lulu l Result Performing Organization Address [facility]/ZIP Co de Phone Number [facility] Department [place] [address] * HIV 1/2 Antibody plus p24 Antigen Blood (06/26/2024 3:21 PM [employer]TAIN) HIV 1/2 ab + p24 ag Nonreactive Nonreactive Comment:Nonreactive for HIV- 1 antigen and HIV-1/HIV-2 antibodies. No laboratory evidence of HIV infection. If acute HIV infection is suspected, consider testing for HIV-1 RNA. Current interpretive data was last revised on 22. Blood 06/26/2024 3:21 PM [employer] CAPTAIN 06/26/2024 3:41 PM [employer]TAIN Kami Dupont MD LAB MICROBIOLOGY - GENERA L ORDERABLES Final Result Performing Organization Address [facility] de Phone Number [facility] [place] [address] * Hepatitis C antibody Blood (06/26/2024 3:21 PM CL[employer] CAPTAIN) Pathologist [facility] Hep C Ab Nonreactive Nonreactive Comment:Antibodies to HCV no t detected. Does NOT exclude the possibility of recent exposure to HCV. Current interpretive data was last revised on 22 Blood 06/26/2024 3:21 PM [employer]TAIN 06/26/2024 3:41 PM [employer]TAIN Kami Dupont MD LAB MICROBIOLOGY - GENERA L ORDERABLES Final Result Performing Organization Address City/[facility] Co de Phone Number [facility] [place] [address] * RPR Blood (06/26/2024 3:21 PM CL[employer] CAPTAIN) Pathologist [facility] RPR Nonreactive Nonreactive Blood 06/26/2024 3:21 PM CL[employer]TAIN 06/26/2024 3:41 PM [employer]TAIN Kami Dupont MD LAB MICROBIOLOGY - GENERA L ORDERABLES Final Result Performing Organization Address [facility] de Phone Number [facility] Department [place] [address] * (ABNORMAL) Phosphorus (06/26/2024 3:21 PM CL[employer]TAIN) Phosphorus, pl 0.7(L) 2.3 - 4.5 mg/dL Comment:Repeated and Verifie d Blood 06/26/2024 3:21 PM [employer]TAIN 06/26/2024 3:41 PM CL[employer]TAIN us Kami Dupont MD LAB BLOOD ORDERABLES Lulu l Result Performing Organization Address City/[facility]/ZIP Co de Phone Number [facility] [place] [address] * eGFR (06/26/2024 12:16 AM CL[employer]TAIN) Pathologist [facility] eGFR >90 >=60 [...] reviewed 2021. Blood 06/26/2024 12:1 6 AM [employer]TAIN 06/26/2024 12:39 AM [employer]TAIN us Patricia Bryant MD LAB BLOOD ORDERABLES Final Res ult [facility] [place] [address] * (ABNORMAL) Phosphorus (06/26/2024 12:16 AM CL[employer] CAPTAIN) [facility] Phosphorus, pl <0.7(L) 2.3 - 4.5 mg/dL Comment:Repeated and Verifie d Blood 06/26/2024 12:1 6 AM [employer]TAIN 06/26/2024 12:39 AM [employer]TAIN Patricia Bryant MD LAB BLOOD ORDERABLES Final Res ult [facility] [place] [address] * Magnesium (06/26/2024 12:16 AM CL[employer]TAIN) [facility] Magnesium 1.9 1.4 - 2.5 mg/dL Blood 06/26/2024 12:1 6 AM [employer]TAIN 06/26/2024 12:39 AM [employer]TAIN Patricia Bryant MD LAB BLOOD ORDERABLES Final Res ult [facility] [place] [address] * (ABNORMAL) Basic metabolic panel (06/26/2024 12:16 AM CL[employer]EDGE [employer]AT CAPTAIN) [facility] Sodium 142 135 - 145 mmol/L Potassium, pl 4.4 3.3 - 4.9 mmol/L [facility] Comment:Hemolyzed; Potassium value may be falsely elevated by as much as 0.3-0.5 mmol/L. Suggest redraw and reanalysis. Chloride 109 97 - 110 mmol/L [facility] CO2 29 22 - 32 mmol/L [facility] Anion gap 4 2 - 15 mmol/L [facility] BUN 13 6 - 25 mg/dL [facility] Creatinine 0.53(L) 0.80 - 1.30 mg/dL [facility] Glucose 177 70 - 199 mg/dL [facility] Comment: Interpretive Data Fasting glucose >/= 126 [...] 2022. Calcium 9.0 8.5 - 10.3 mg/dL [facility] Blood 06/26/2024 12:1 6 AM [employer] 06/26/2024 12:39 AM [employer]TAIN Patricia Bryant MD LAB BLOOD ORDERABLES Final Res ult Performing Organization Address [facility] Co de Phone Number [facility] Department [place] [address] * POCT glucose (06/23/2024 11:36 AM CL[employer] CAPTAIN) Pathologist [facility] Glucose, POC 95 70 - 199 mg/dL Blood 06/23/2024 11:3 6 AM [employer]TAIN 06/23/2024 11:36 AM [employer]TAIN Patricia Bryant MD LAB POCT ORDERABLES - DEVICE F inal Result Performing Organization Address [facility] Co de Phone Number [facility] Department [place] [address] * (ABNORMAL) CBC without differential (06/23/2024 9:07 AM [employer] CAPTAIN) [facility] WBC 4.7 3.8 - 9.9 K/cumm Hgb 12.5(L) 13.0 - 17.5 g/dL [facility] Hct 37.4(L) 38.9 - 50.3 % [facility] Plt 145(L) 150 - 400 K/cumm [facility] MPV 12.6(H) 9.1 - 12.3 fL [facility] RBC 3.94(L) 4.30 - 5.80 M/cumm [facility] MCV 94.9 81.3 - 96.4 fL [facility] MCH 31.7 27.1 - 33.3 pg [facility] MCHC 33.4 32.3 - 35.7 g/dL [facility] RDW CV 12.9 11.1 - 14.9 % [facility] RDW SD 45.1 35.7 - 48.1 fL [facility] NRBC abs 0.00 0.00 - 0.01 K/cumm [facility] Blood 06/23/2024 9:07 AM [employer]TAIN 06/23/2024 9:28 AM [employer]TAIN us Patricia Bryant MD LAB BLOOD ORDERABLES Final Res ult [facility] Department [place] [address] * eGFR (06/23/2024 9:00 AM [employer]TAIN) eGFR >90 >=60 mL/min/1. 73 m2 Comment: [...] last reviewed 2021. Blood 06/23/2024 9:00 AM [employer]TAIN 06/23/2024 10:59 AM [employer]TAIN Result Rose Bryant MD LAB BLOOD ORDERABLES Final Res ult Performing Organization Address [facility] de Phone Number [facility] [place] [address] * Phosphorus (06/23/2024 9:00 AM CL[employer] CAPTAIN) Phosphorus, pl 2.3 2.3 - 4.5 mg/dL Blood 06/23/2024 9:00 AM [employer]TAIN 06/23/2024 10:59 AM [employer]TAIN Result Rose Bryant MD LAB BLOOD ORDERABLES Final Res ult Performing Organization Address [facility] de Phone Number [facility] [place] [address] * Magnesium (06/23/2024 9:00 AM [employer]TAIN) Magnesium 1.7 1.4 - 2.5 mg/dL Blood 06/23/2024 9:00 AM [employer]TAIN 06/23/2024 10:59 AM [employer] CAPTAIN Result Rose Bryant MD LAB BLOOD ORDERABLES Final Res ult Performing Organization Address [facility] [place] [address] * Vancomycin level trough (06/23/2024 9:00 AM CL[employer] CAPTAIN) Vancomycin trough 15.2 10.0 - 20.0 mcg/mL Blood 06/23/2024 9:00 AM [employer]TAIN 06/23/2024 10:59 AM [employer]TAIN Result Rose Bryant MD LAB BLOOD ORDERABLES Final Res ult Performing Organization Address [facility] Co de Phone Number [facility] Department [place] [address] * (ABNORMAL) Basic metabolic panel (06/23/2024 9:00 AM CL[employer] CAPTAIN) Sodium 143 135 - 145 mmol/L Potassium, pl 3.7 3.3 - 4.9 mmol/L [facility] Chloride 108 97 - 110 mmol/L [facility] CO2 28 22 - 32 mmol/L [facility] Anion gap 7 2 - 15 mmol/L [facility] BUN 3(L) 6 - 25 mg/dL [facility] Creatinine 0.50(L) 0.80 - 1.30 mg/dL [facility] Glucose 271(H) 70 - 199 mg/dL [facility] Comment: Interpretive Data Fasting glucose >/= 126 [...] 2022. Calcium 9.0 8.5 - 10.3 mg/dL [facility] Blood 06/23/2024 9:00 AM [employer]TAIN 06/23/2024 10:59 AM CL[employer] CAPTAIN us Patricia Bryant MD LAB BLOOD ORDERABLES Final Res ult Performing Organization Address [facility]/ZIP Co de Phone Number [facility] Department [place] [address] * IR G To GJ-Tube Replacement (06/22/2024 1:24 PM CLAM [employer] CAPTAIN) Anatomical Region Laterality Modality Body N/A X-Ray Angiograph y 06/22/2024 1:47 PM CL[employer] CAPTAIN Impressions 06/22/2024 4:13 PM [employer] CAPTAIN Successful percutaneous 18 Fr 45 cm gastrojejunostomy [...] Sean Hillman M.D. Narrative 06/22/2024 4:13 PM CL[employer] CAPTAIN EXAMINATION: GASTROJEJUNOSTOMY TUBE EXCHANGE HISTORY/INDICATION: 64 yo [...] procedure. TECHNIQUE: Prior to beginning the procedure, Verden Protocol was performed to confirm the patient's [...] placed in the proximal jejunum. A 18 Cymraes, 45 cm long JELLY single/double lumen gastrojejunostomy [...] procedure. TECHNIQUE: Prior to beginning the procedure, Verden Protocol was performed to confirm the patient's [...] placed in the proximal jejunum. A 18 Cymraes, 45 cm long JELLY single/double lumen gastrojejunostomy [...] C. difficile testing Stool (06/21/2024 11:11 AM CL[employer] CAPTAIN) Pathologist [facility] Result Negative Negative Toxin Result Negative Negative [facility] C. diff result Negative, free toxin Negative, free toxin [facility] C. diff interp Negative for toxigenic Clostridioides (Clostridium) difficile. Analysis was performed using a glutamate dehydrogenase antigen detection assay combined with a C. difficile toxin detection assay. [facility] Stool 06/21/2024 11:1 1 AM [employer] CAPTAIN 06/21/2024 12:55 PM CL[employer] CAPTAIN Narrative [facility] - 06/21/2024 2:38 PM CL[employer] CAPTAIN Testing for C. difficile is not recommended within 4 days of a negative result, 10 days of a positive, or 24 hours after laxative administration. If this order is clinically indicated, contact the lab and enter the passcode to complete this order.->[id number] Patricia Bryant MD LAB MICROBIOLOGY - GENERAL ORD ERABLES Final Result Performing Organization Address [facility]/ZIP Co de Phone Number [facility] Department [place] [address] * Infection Prevention VRE Culture Stool (06/21/2024 11:10 AM CL[employer] CAPTAIN) Report Final Report: Negative Stool 06/21/2024 11:1 0 AM [employer]TAIN 06/21/2024 2:41 PM CL[employer] CAPTAIN Narrative [facility] - 06/23/2024 11:15 PM CL[employer] CAPTAIN Surveillance culture for Infection Prevention purposes only; results indicate colonization, not infection requiring treatment. Testing performed by [facility] ([phone]). Patricia Bryant MD LAB MICROBIOLOGY - GENERAL ORD ERABLES Final Result [facility] Department [place] [address] * Vancomycin level trough Draw trough 30 minutes prior to 4th dose. (06/21/2024 7:16 AM [employer] CAPTAIN) Vancomycin trough 16.8 10.0 - 20.0 mcg/mL Blood 06/21/2024 7:16 AM [employer] CAPTAIN 06/21/2024 7:27 AM [employer] CAPTAIN Narrative [facility] - 06/21/2024 8:10 AM [employer]TAIN Draw trough 30 minutes prior to 4th dose. Patricia Bryant MD LAB BLOOD ORDERABLES Final Res ult [facility] Department [place] [address] * eGFR (06/21/2024 5:03 AM CL[employer] CAPTAIN) eGFR >90 >=60 mL/min/1. 73 m2 Comment: [...] last reviewed 2021. Blood 06/21/2024 5:03 AM [employer] CAPTAIN 06/21/2024 5:14 AM [employer] CAPTAIN Patricia Bryant MD LAB BLOOD ORDERABLES Final Res ult Performing Organization Address [facility]/ZIP Co de Phone Number [facility] Department [place] [address] * Differential, auto (06/21/2024 5:03 AM CL[employer] CAPTAIN) Neutrophil abs 1.7 1.5 - 6.5 K/cumm Imm gran abs 0.0 0.0 - 0.1 K/cumm [facility] Lymphocyte abs 1.7 0.8 - 3.3 K/cumm [facility] Monocyte abs 0.6 0.2 - 0.8 K/cumm [facility] Eosinophil abs 0.3 0.0 - 0.5 K/cumm [facility] Basophil abs 0.0 0.0 - 0.1 K/cumm [facility] Neutrophil pct 38.8 % [facility] Comment: Interpretive Data Percent cell count reference ranges are not reported, since discordance with absolute values may lead to misinterpretation of CBC data. Current Interpretive Data was last revised on 2017. Imm gran pct 0.2 % [facility] Comment: Interpretive Data Percent cell count reference ranges are not reported, since discordance with absolute values may lead to misinterpretation of CBC data. Current Interpretive Data was last revised on 2017. Lymphocyte pct 40.5 % [facility] Comment: Interpretive Data Percent cell count reference ranges are not reported, since discordance with absolute values may lead to misinterpretation of CBC data. Current Interpretive Data was last revised on 2017. Monocyte pct 13.4 % [facility] Comment: Interpretive Data Percent cell count reference ranges are not reported, since discordance with absolute values may lead to misinterpretation of CBC data. Current Interpretive Data was last revised on 2017. Eosinophil pct 6.6 % [facility] Comment: Interpretive Data Percent cell count reference ranges are not reported, since discordance with absolute values may lead to misinterpretation of CBC data. Current Interpretive Data was last revised on 2017. Basophil pct 0.5 % [facility] Comment: Interpretive Data Percent cell count reference ranges are not reported, since discordance with absolute values may lead to misinterpretation of CBC data. Current Interpretive Data was last revised on 2017. Blood 06/21/2024 5:03 AM [employer] CAPTAIN 06/21/2024 5:14 AM CL[employer] CAPTAIN us Patricia Bryant MD LAB BLOOD ORDERABLES Final Res ult [facility] Department [place] [address] * (ABNORMAL) CBC with auto differential (06/21/2024 5:03 AM CL[employer] CAPTAIN) [facility] WBC 4.3 3.8 - 9.9 K/cumm Hgb 11.6(L) 13.0 - 17.5 g/dL [facility] Hct 34.5(L) 38.9 - 50.3 % [facility] Plt 132(L) 150 - 400 K/cumm [facility] MPV 11.3 9.1 - 12.3 fL [facility] RBC 3.53(L) 4.30 - 5.80 M/cumm [facility] MCV 97.7(H) 81.3 - 96.4 fL [facility] MCH 32.9 27.1 - 33.3 pg [facility] MCHC 33.6 32.3 - 35.7 g/dL [facility] RDW CV 13.4 11.1 - 14.9 % [facility] RDW SD 48.0 35.7 - 48.1 fL [facility] NRBC abs 0.00 0.00 - 0.01 K/cumm [facility] Blood 06/21/2024 5:03 AM [employer] CAPTAIN 06/21/2024 5:14 AM [employer] CAPTAIN Patricia Bryant MD LAB BLOOD ORDERABLES Final Res ult Performing Organization Address [facility] Co de Phone Number [facility] Department [place] [address] * Phosphorus (06/21/2024 5:03 AM CL[employer] CAPTAIN) [facility] Phosphorus, pl 3.1 2.3 - 4.5 mg/dL Blood 06/21/2024 5:03 AM [employer] CAPTAIN 06/21/2024 5:14 AM [employer]TAIN Patricia Bryant MD LAB BLOOD ORDERABLES Final Res ult [facility] Department [place] [address] * Magnesium (06/21/2024 5:03 AM CL[employer] CAPTAIN) Magnesium 1.9 1.4 - 2.5 mg/dL Blood 06/21/2024 5:03 AM [employer] CAPTAIN 06/21/2024 5:14 AM CL[employer]TAIN Patricia Bryant MD LAB BLOOD ORDERABLES Final Res ult [facility] Department [place] [address] * (ABNORMAL) Comprehensive metabolic panel (06/21/2024 5:03 AM CL[employer] CAPTAIN) Pathologist [facility] Sodium 145 135 - 145 mmol/L Potassium, pl 3.4 3.3 - 4.9 mmol/L [facility] Chloride 112(H) 97 - 110 mmol/L [facility] CO2 27 22 - 32 mmol/L [facility] Anion gap 6 2 - 15 mmol/L [facility] BUN 9 6 - 25 mg/dL [facility] Creatinine 0.57(L) 0.80 - 1.30 mg/dL [facility] Glucose 106 70 - 199 mg/dL [facility] Comment: Interpretive Data Fasting glucose >/= 126 [...] 2022. Calcium 8.6 8.5 - 10.3 mg/dL [facility] Bilirubin, total 0.2 0.1 - 1.2 mg/dL [facility] Protein, pl 5.6(L) 6.5 - 8.5 g/dL [facility] Albumin 2.7(L) 3.5 - 5.0 g/dL [facility] Alk phos 61 40 - 130 Units/L [facility] ALT 15 7 - 55 Units/L [facility] AST 25 10 - 50 Units/L [facility] Blood 06/21/2024 5:03 AM [employer] CAPTAIN 06/21/2024 5:14 AM [employer] CAPTAIN Patricia Bryant MD LAB BLOOD ORDERABLES Final Res ult Performing Organization Address [facility] Co de Phone Number [facility] Department [place] [address] * (ABNORMAL) MSSA/MRSA (Staphylococcus aureus) Culture Nasal (06/20/2024 10:30 PM CLAM [employer] CAPTAIN) Report Final Report: 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 Patricia Bryant MD LAB MICROBIOLOGY - GENERAL ORD ERABLES Final Result Performing Organization Address [facility] de Phone Number [facility] Department [place] [address] * XR Abdomen Ap 1 Vw (06/20/2024 10:29 AM CL[employer] CAPTAIN) Anatomical Region Laterality Modality Body, Abdomen N/A Computed Radiogr aphy 06/20/2024 10:5 3 AM [employer] CAPTAIN Impressions 06/20/2024 11:51 AM [employer] CAPTAIN Gastrostomy tube. Colonic distention is improved. No radiographic evidence of obstruction. Dictated by: Hunter Hernandez M.D (Ramanan). The radiology attending physician has personally reviewed this study, and had reviewed and/or edited this written report and agrees with it. Electronically signed by: Byron Moya M.D. Narrative 06/20/2024 11:51 AM [employer] CAPTAIN EXAMINATION: Abdomen, one view. HISTORY: Abdominal distention. [...] and culture Urine, bladder (06/19/2024 9:34 PM CL[employer] CAPTAIN) Color, ur Straw Yellow Clarity, ur Clear Clear [facility] Specific gravity, ur 1.021 1.003 - 1.030 [facility] pH, urine 7.0 [facility] Comment: Interpretive Data U rine pH is affected by diet, medications, systemic acid-base disturbances, and renal tubular function. pH may affect urinary stone formation. For example, urine pH below 6.0 may help reduce the tendency for calcium phosphate stones and pH greater than 6.0 may reduce the tendency for uric acid stone formation. Source: [employer] Current Interpretive Data was last revised on 2017 Protein, ur ql 1+(A) Negative [facility] Glucose, ur ql Negative Negative [facility] Ketones, ur Negative Negative [facility] Bilirubin, ur Negative Negative [facility] Blood, ur Negative Negative [facility] Urobilinogen, ur <2.0 <2.0 mg/dL [facility] Nitrite, ur Negative Negative [facility] Leukocyte esterase, ur Negative Negative [facility] UA reflex comment Reflex to microscopic UA will be performed. [facility] Urine, bladder 06/19/2024 9: 34 PM [employer] CAPTAIN 06/19/2024 10:05 PM [employer] CAPTAIN Patricia Bryant MD LAB MICROBIOLOGY - GENERAL ORD ERABLES Final Result Performing Organization Address [facility] Co de Phone Number [facility] Department [place] [address] * Urinalysis, microscopic only (06/19/2024 9:34 PM CL[employer] CAPTAIN) Pathologist [facility] WBC, ur 0-5 0 - 5 /HPF RBC, ur 0-2 0 - 2 /HPF [facility] Epithelial cells, squamous, ur 1-5 0 - 5 /HPF [facility] Culture Reflex Comment Reflex conditions for urine culture (WBC >10) not met. [facility] Urine, bladder 06/19/2024 9: 34 PM [employer] CAPTAIN 06/19/2024 10:05 PM CL[employer] CAPTAIN Patricia Bryant MD LAB URINE ORDERABLES Final Res ult Performing Organization Address [facility] de Phone Number [facility] Department [place] [address] * (ABNORMAL) Differential, auto (06/19/2024 9:28 PM CL[employer] CAPTAIN) Pathologist [facility] Neutrophil abs 6.0 1.5 - 6.5 K/cumm Imm gran abs 0.0 0.0 - 0.1 K/cumm [facility] Lymphocyte abs 0.7(L) 0.8 - 3.3 K/cumm [facility] Monocyte abs 0.2 0.2 - 0.8 K/cumm [facility] Eosinophil abs 0.2 0.0 - 0.5 K/cumm [facility] Basophil abs 0.0 0.0 - 0.1 K/cumm [facility] Neutrophil pct 84.1 % [facility] Comment: Interpretive Data Percent cell count reference ranges are not reported, since discordance with absolute values may lead to misinterpretation of CBC data. Current Interpretive Data was last revised on 2017. Imm gran pct 0.4 % [facility] Comment: Interpretive Data Percent cell count reference ranges are not reported, since discordance with absolute values may lead to misinterpretation of CBC data. Current Interpretive Data was last revised on 2017. Lymphocyte pct 10.1 % [facility] Comment: Interpretive Data Percent cell count reference ranges are not reported, since discordance with absolute values may lead to misinterpretation of CBC data. Current Interpretive Data was last revised on 2017. Monocyte pct 2.9 % [facility] Comment: Interpretive Data Percent cell count reference ranges are not reported, since discordance with absolute values may lead to misinterpretation of CBC data. Current Interpretive Data was last revised on 2017. Eosinophil pct 2.4 % [facility] Comment: Interpretive Data Percent cell count reference ranges are not reported, since discordance with absolute values may lead to misinterpretation of CBC data. Current Interpretive Data was last revised on 2017. Basophil pct 0.1 % [facility] Comment: Interpretive Data Percent cell count reference ranges are not reported, since discordance with absolute values may lead to misinterpretation of CBC data. Current Interpretive Data was last revised on 2017. Blood 06/19/2024 9:28 PM [employer] CAPTAIN 06/19/2024 10:38 PM CL[employer] CAPTAIN us Patricia Bryant MD LAB BLOOD ORDERABLES Final Res ult [facility] Department [place] [address] * Lacosamide level (06/19/2024 9:28 PM CLAM [employer] CAPTAIN) Lacosamide 9.6 1.0 - 10.0 mcg/mL [facility] Comment: ADDITIONAL INFORMATION This test was developed and its performance characteristics determined by [facility] in a manner consistent with CLIA requirements. This test has not been cleared or approved by the U.S. Food and Drug Administration. Test Performed by: [facility] Laboratories - [facility] [address] [place] [address] Refractory Tile Helper: Marianela Odonnell Ph.D.; CLIA# [id number] Blood 06/19/2024 9:28 PM [employer] CAPTAIN 06/19/2024 11:01 PM [employer] CAPTAIN Narrative [facility] - 06/22/2024 10:25 AM CL[employer] CAPTAIN Please get level before lacosamide dose is given us Patricia Bryant MD LAB BLOOD ORDERABLES Final Res ult [facility] Department [place] [address] [facility] * (ABNORMAL) CBC with auto differential (06/19/2024 9:28 PM CL[employer] CAPTAIN) WBC 7.1 3.8 - 9.9 K/cumm Hgb 12.5(L) 13.0 - 17.5 g/dL [facility] Hct 37.0(L) 38.9 - 50.3 % [facility] Plt 152 150 - 400 K/cumm [facility] MPV 12.6(H) 9.1 - 12.3 fL [facility] RBC 3.90(L) 4.30 - 5.80 M/cumm [facility] MCV 94.9 81.3 - 96.4 fL [facility] MCH 32.1 27.1 - 33.3 pg [facility] MCHC 33.8 32.3 - 35.7 g/dL [facility] RDW CV 13.4 11.1 - 14.9 % [facility] RDW SD 46.8 35.7 - 48.1 fL [facility] NRBC abs 0.00 0.00 - 0.01 K/cumm [facility] Blood 06/19/2024 9:28 PM [employer] CAPTAIN 06/19/2024 10:38 PM [employer] CAPTAIN Result [facility] Patricia Bryant MD LAB BLOOD ORDERABLES Final Res ult Performing Organization Address [facility]/ZIP Co de Phone Number [facility] Department [place] [address] * Valproic acid level, total (06/19/2024 9:28 PM CLAM [employer] CAPTAIN) [facility] Valproic Acid 76.0 50.0 - 100.0 mcg/mL Comment: Interpretive Data Therapeutic or toxic effects of anticonvulsant drugs may occur at different concentrations in different patients and the correlation between dose and clinical effect must be evaluated individually. Current interpretative data was last revised on 13. Blood 06/19/2024 9:28 PM [employer] 06/19/2024 10:39 PM [employer] Narrative [facility] - 06/19/2024 11:40 PM [employer] Please get level before dose is given Patricia Bryant MD LAB BLOOD ORDERABLES Final Res ult Performing Organization Address City/[facility] Co de Phone Number [facility] Department [place] [address] * Respiratory pathogen panel Nasopharyngeal (06/19/2024 9:10 PM [employer]) [facility] Influenza A RNA Not Detected Not Detected Influenza B RNA Not Detected Not Detected [facility] RSV RNA Not Detected Not Detected [facility] COVID-19 RNA Not Detected Not Detected [facility] Coronavirus 229E RNA Not Detected Not Detected [facility] Coronavirus HKU1 RNA Not Detected Not Detected [facility] Coronavirus NL63 RNA Not Detected Not Detected [facility] Coronavirus OC43 RNA Not Detected Not Detected [facility] Adenovirus DNA Not Detected Not Detected [facility] Metapneumovirus RNA Not Detected Not Detected [facility] Rhinovirus/Enterov irus RNA Not Detected Not Detected [facility] Parainfluenza 1 RNA Not Detected Not Detected [facility] Parainfluenza 2 RNA Not Detected Not Detected [facility] Parainfluenza 3 RNA Not Detected Not Detected [facility] Parainfluenza 4 RNA Not Detected Not Detected [facility] B. pertussis DNA Not Detected Not Detected [facility] B. parapertussis DNA Not Detected Not Detected [facility] C. pneumoniae DNA Not Detected Not Detected [facility] M. pneumoniae DNA Not Detected Not Detected [facility] Nasopharyngeal 06/19/2024 9: 10 PM [employer] 06/19/2024 10:06 PM [employer] Narrative [facility] - 06/19/2024 11:35 PM [employer] Is the Patient experiencing symptoms consistent with COVID?->Yes Surveillance testing for transplant patient?->No Interpretive Data The SmarterShade FilmArray Respiratory Panel (RP2.1) assay is a [...] assay has FDA clearance for testing of ASSISTANT OFFICE MANAGER swabs. The performance of additional specimen types has been assessed by the performing laboratory. The performance characteristics of this assay have been determined by [facility] Molecular Infectious Disease Laboratory. Current interpretive data was last revised on 22. Patricia Bryant MD LAB MICROBIOLOGY - GENERAL ORD ERABLES Final Result [facility] Department [place] [address] * (ABNORMAL) Aerobic culture and gram stain Tracheal aspirate Tracheal (06/19/2024 6:53 PM [employer]) Direct Specimen Exam Stain: Abundant polymorphonuclear leukocytes seen. Few squamous epithelial cells seen. Moderate mixed bacterial domenico seen on Gram stain. Report Final Report: Greater than or equal to 100,000 colonies/ml of Staphylococcus aureus Methicillin resistant (MRSA) by penicillin binding protein 2a (PBP2a) testing. Plus growth of clinically insignificant bacterial domenico. (.) [facility] Organism STAPHYLOCOCCUS AUREUS [facility] Organism PLUS GROWTH OF CLINICALLY INSIGNIFICANT DOMENICO. [facility] Tracheal aspirate (Tracheal) 06/19/2024 6:53 PM [employer] 06/19/2024 8:18 PM [employer]TAIN Narrative [facility] - 06/27/2024 2:52 PM [employer]TAIN Testing performed by [facility] Microbiology Laboratory ([phone]) Specimens submitted from normally sterile body sites [...] - GENERAL ORD ERABLES Final Result [facility] Department [place] [address] * XR Chest 1 View (06/19/2024 6:47 PM [employer]) Anatomical Region Laterality Modality Body, Chest N/A Digital Radiogra phy 06/20/2024 2:42 PM [employer] Impressions 06/20/2024 3:15 PM [employer]TAIN Comparison is made to 06/19/2024 at 3:32 [...] Herve Payne M.D. Narrative 06/20/2024 3:15 PM [employer] EXAMINATION: 1 view chest radiograph Procedure Note [...] pathogen panel Tracheal aspirate (06/19/2024 6:46 PM [employer]) Pathologist [facility] Influenza A RNA Not Detected Not Detected Influenza B RNA Not Detected Not Detected [facility] RSV RNA Not Detected Not Detected [facility] COVID-19 RNA Not Detected Not Detected [facility] Coronavirus 229E RNA Not Detected Not Detected [facility] Coronavirus HKU1 RNA Not Detected Not Detected [facility] Coronavirus NL63 RNA Not Detected Not Detected [facility] Coronavirus OC43 RNA Not Detected Not Detected [facility] Adenovirus DNA Not Detected Not Detected [facility] Metapneumovirus RNA Not Detected Not Detected [facility] Rhinovirus/Enterov irus RNA Not Detected Not Detected [facility] Parainfluenza 1 RNA Not Detected Not Detected [facility] Parainfluenza 2 RNA Not Detected Not Detected [facility] Parainfluenza 3 RNA Not Detected Not Detected [facility] Parainfluenza 4 RNA Not Detected Not Detected [facility] B. pertussis DNA Not Detected Not Detected [facility] B. parapertussis DNA Not Detected Not Detected [facility] C. pneumoniae DNA Not Detected Not Detected [facility] M. pneumoniae DNA Not Detected Not Detected [facility] Tracheal aspirate 06/19/2024 6:46 PM [employer] 06/20/2024 7:55 AM [employer] Narrative [facility] - 06/20/2024 8:58 AM [employer] Is the Patient experiencing symptoms consistent with COVID?->Yes Surveillance testing for transplant patient?->No Interpretive Data The SmarterShade FilmArray Respiratory Panel (RP2.1) assay is a [...] assay has FDA clearance for testing of ASSISTANT OFFICE MANAGER swabs. The performance of additional specimen types has been assessed by the performing laboratory. The performance characteristics of this assay have been determined by [facility] Molecular Infectious Disease Laboratory. Current interpretive data was last revised on 22. us Patricia Bryant MD LAB MICROBIOLOGY - GENERAL ORD ERABLES Final Result [facility] Department [place] [address] * XR Abdomen Ap 1 Vw (06/19/2024 4:09 PM [employer]) Anatomical Region Laterality Modality Body, Abdomen N/A Digital Radiogra phy 06/19/2024 4:35 PM [employer] Impressions 06/19/2024 5:03 PM [employer]TAIN Diffuse mild gaseous bowel distention, similar to the prior exam and could represent ileus. Partially imaged gastrostomy tube. Dictated by: Hunter Hernandez M.D. (Ramanan) The radiology attending physician has personally reviewed this study, and had reviewed and/or edited this written report and agrees with it. Electronically signed by: Lupillo Lugo M.D. Narrative 06/19/2024 5:03 PM [employer] EXAMINATION: Abdomen, one view. HISTORY: Abdominal pain [...] XR Chest 1 View (06/19/2024 4:08 PM [employer]) Anatomical Region Laterality Modality Body, Chest N/A Digital Radiogra phy 06/19/2024 4:21 PM [employer] Impressions 06/19/2024 4:21 PM [employer]TAIN The current study is compared with the [...] Elif Patel M.D. Narrative 06/19/2024 4:21 PM [employer]TAIN EXAMINATION: 1 view chest radiograph Procedure Note [...] Final Result * eGFR (06/19/2024 2:47 PM [employer]) eGFR >90 >=60 mL/min/1. 73 m2 Comment: [...] last reviewed 2021. Blood 06/19/2024 2:47 PM [employer] 06/19/2024 3:03 PM [employer] Patricia Bryant MD LAB BLOOD ORDERABLES Final Res ult [facility] Department [place] [address] * Differential, auto (06/19/2024 2:47 PM [employer]) Neutrophil abs 5.5 1.5 - 6.5 K/cumm Imm gran abs 0.0 0.0 - 0.1 K/cumm [facility] Lymphocyte abs 0.9 0.8 - 3.3 K/cumm [facility] Monocyte abs 0.2 0.2 - 0.8 K/cumm [facility] Eosinophil abs 0.3 0.0 - 0.5 K/cumm [facility] Basophil abs 0.0 0.0 - 0.1 K/cumm [facility] Neutrophil pct 79.8 % [facility] Comment: Interpretive Data Percent cell count reference ranges are not reported, since discordance with absolute values may lead to misinterpretation of CBC data. Current Interpretive Data was last revised on 2017. Imm gran pct 0.4 % [facility] Comment: Interpretive Data Percent cell count reference ranges are not reported, since discordance with absolute values may lead to misinterpretation of CBC data. Current Interpretive Data was last revised on 2017. Lymphocyte pct 13.4 % [facility] Comment: Interpretive Data Percent cell count reference ranges are not reported, since discordance with absolute values may lead to misinterpretation of CBC data. Current Interpretive Data was last revised on 2017. Monocyte pct 2.5 % [facility] Comment: Interpretive Data Percent cell count reference ranges are not reported, since discordance with absolute values may lead to misinterpretation of CBC data. Current Interpretive Data was last revised on 2017. Eosinophil pct 3.8 % [facility] Comment: Interpretive Data Percent cell count reference ranges are not reported, since discordance with absolute values may lead to misinterpretation of CBC data. Current Interpretive Data was last revised on 2017. Basophil pct 0.1 % [facility] Comment: Interpretive Data Percent cell count reference ranges are not reported, since discordance with absolute values may lead to misinterpretation of CBC data. Current Interpretive Data was last revised on 2017. Blood 06/19/2024 2:47 PM [employer] 06/19/2024 3:04 PM [employer] us Patricia Bryant MD LAB BLOOD ORDERABLES Final Res ult [facility] Department [place] [address] * (ABNORMAL) CBC with auto differential (06/19/2024 2:47 PM [employer]) [facility] WBC 6.9 3.8 - 9.9 K/cumm Hgb 14.2 13.0 - 17.5 g/dL [facility] Hct 42.4 38.9 - 50.3 % [facility] Plt 135(L) 150 - 400 K/cumm [facility] MPV 12.6(H) 9.1 - 12.3 fL [facility] RBC 4.47 4.30 - 5.80 M/cumm [facility] MCV 94.9 81.3 - 96.4 fL [facility] MCH 31.8 27.1 - 33.3 pg [facility] MCHC 33.5 32.3 - 35.7 g/dL [facility] RDW CV 13.2 11.1 - 14.9 % [facility] RDW SD 46.5 35.7 - 48.1 fL [facility] NRBC abs 0.00 0.00 - 0.01 K/cumm [facility] Blood 06/19/2024 2:47 PM [employer] 06/19/2024 3:04 PM [employer] Patricia Bryant MD LAB BLOOD ORDERABLES Final Res ult Performing Organization Address City/[facility] Co de Phone Number [facility] [place] [address] * (ABNORMAL) Phosphorus (06/19/2024 2:47 PM CL[employer]TAIN) [facility] Phosphorus, pl 2.2(L) 2.3 - 4.5 mg/dL Blood 06/19/2024 2:47 PM [employer] 06/19/2024 3:03 PM [employer] Patricia Bryant MD LAB BLOOD ORDERABLES Final Res ult [facility] [place] [address] * Magnesium (06/19/2024 2:47 PM CL[employer] CAPTAIN) Pathologist [facility] Magnesium 2.0 1.4 - 2.5 mg/dL Blood 06/19/2024 2:47 PM [employer]TAIN 06/19/2024 3:03 PM [employer] Patricia Bryant MD LAB BLOOD ORDERABLES Final Res ult [facility] Department [place] [address] * (ABNORMAL) Comprehensive metabolic panel (06/19/2024 2:47 PM CL[employer]TAIN) Pathologist [facility] Sodium 144 135 - 145 mmol/L Potassium, pl 3.9 3.3 - 4.9 mmol/L [facility] Comment:Hemolyzed; Potassium value may be falsely elevated by as much as 0.3-0.5 mmol/L. Suggest redraw and reanalysis. Chloride 105 97 - 110 mmol/L [facility] CO2 29 22 - 32 mmol/L [facility] Anion gap 10 2 - 15 mmol/L [facility] BUN 7 6 - 25 mg/dL [facility] Creatinine 0.62(L) 0.80 - 1.30 mg/dL [facility] Glucose 113 70 - 199 mg/dL [facility] Comment: Interpretive Data Fasting glucose >/= 126 [...] 2022. Calcium 9.5 8.5 - 10.3 mg/dL [facility] Bilirubin, total 0.2 0.1 - 1.2 mg/dL [facility] Protein, pl 7.2 6.5 - 8.5 g/dL [facility] Albumin 3.7 3.5 - 5.0 g/dL [facility] Alk phos 91 40 - 130 Units/L [facility] ALT 13 7 - 55 Units/L [facility] AST 28 10 - 50 Units/L [facility] Comment:Hemolyzed; result ma y be falsely elevated Blood 06/19/2024 2:47 PM [employer]TAIN 06/19/2024 3:03 PM [employer] Patricia Bryant MD LAB BLOOD ORDERABLES Final Res ult Performing Organization Address [facility]/ZIP Co de Phone Number [facility] Department [place] [address] * POCT glucose (06/19/2024 2:25 PM [employer]TAIN) Glucose, POC 125 70 - 199 mg/dL Blood 06/19/2024 2:25 PM [employer]TAIN 06/19/2024 2:25 PM [employer] Patricia Bryant MD LAB POCT ORDERABLES - DEVICE F inal Result Performing Organization Address [facility] Co de Phone Number [facility] Department [place] [address] * XR Abdomen Ap 1 Vw (06/16/2024 6:16 PM [employer]) Anatomical Region Laterality Modality Body, Abdomen N/A Computed Radiogr aphy 06/16/2024 6:56 PM [employer] Impressions 06/16/2024 6:56 PM [employer]TAIN Gastrostomy tube is present. Aerated bowel seen throughout the abdomen. The gaseous distention is improved from the prior examination. Distal rectal air is not definitively visualized. No pneumoperitoneum. Electronically signed by: Sekou Wolf M.D. Narrative 06/16/2024 6:56 PM [employer]TAIN EXAMINATION: Abdomen, one view. HISTORY: Abdominal distension. [...] Res ult * eGFR (06/16/2024 12:42 PM CL[employer]TAIN) eGFR >90 >=60 mL/min/1. 73 m2 Comment: [...] reviewed 2021. Blood 06/16/2024 12:4 2 PM [employer] 06/16/2024 12:49 PM [employer]TAIN Misael Felix MD LAB BLOOD ORDERABLES Final Result [facility] Department [place] [address] * Differential, auto (06/16/2024 12:42 PM CL[employer]) Neutrophil abs 2.5 1.5 - 6.5 K/cumm Imm gran abs 0.0 0.0 - 0.1 K/cumm [facility] Lymphocyte abs 2.4 0.8 - 3.3 K/cumm [facility] Monocyte abs 0.4 0.2 - 0.8 K/cumm [facility] Eosinophil abs 0.4 0.0 - 0.5 K/cumm [facility] Basophil abs 0.0 0.0 - 0.1 K/cumm [facility] Neutrophil pct 42.8 % [facility] Comment: Interpretive Data Percent cell count reference ranges are not reported, since discordance with absolute values may lead to misinterpretation of CBC data. Current Interpretive Data was last revised on 2017. Imm gran pct 0.2 % [facility] Comment: Interpretive Data Percent cell count reference ranges are not reported, since discordance with absolute values may lead to misinterpretation of CBC data. Current Interpretive Data was last revised on 2017. Lymphocyte pct 42.2 % [facility] Comment: Interpretive Data Percent cell count reference ranges are not reported, since discordance with absolute values may lead to misinterpretation of CBC data. Current Interpretive Data was last revised on 2017. Monocyte pct 6.7 % [facility] Comment: Interpretive Data Percent cell count reference ranges are not reported, since discordance with absolute values may lead to misinterpretation of CBC data. Current Interpretive Data was last revised on 2017. Eosinophil pct 7.7 % [facility] Comment: Interpretive Data Percent cell count reference ranges are not reported, since discordance with absolute values may lead to misinterpretation of CBC data. Current Interpretive Data was last revised on 2017. Basophil pct 0.4 % [facility] Comment: Interpretive Data Percent cell count reference ranges are not reported, since discordance with absolute values may lead to misinterpretation of CBC data. Current Interpretive Data was last revised on 2017. Blood 06/16/2024 12:4 2 PM [employer] 06/16/2024 12:49 PM [employer] Misael Felix MD LAB BLOOD ORDERABLES Final Result Performing Organization Address [facility] de Phone Number [facility] Department [place] [address] * (ABNORMAL) CBC with auto differential (06/16/2024 12:42 PM CL[employer] CAPTAIN) Pathologist [facility] WBC 5.7 3.8 - 9.9 K/cumm Hgb 12.2(L) 13.0 - 17.5 g/dL [facility] Hct 36.6(L) 38.9 - 50.3 % [facility] Plt 156 150 - 400 K/cumm [facility] MPV 12.6(H) 9.1 - 12.3 fL [facility] RBC 3.85(L) 4.30 - 5.80 M/cumm [facility] MCV 95.1 81.3 - 96.4 fL [facility] MCH 31.7 27.1 - 33.3 pg [facility] MCHC 33.3 32.3 - 35.7 g/dL [facility] RDW CV 13.0 11.1 - 14.9 % [facility] RDW SD 45.1 35.7 - 48.1 fL [facility] NRBC abs 0.00 0.00 - 0.01 K/cumm [facility] Blood 06/16/2024 12:4 2 PM [employer] 06/16/2024 12:49 PM [employer]TAIN Misael Felix MD LAB BLOOD ORDERABLES Final Result Performing Organization Address [facility] Co de Phone Number [facility] Department [place] [address] * Phosphorus (06/16/2024 12:42 PM CL[employer]TAIN) Pathologist [facility] Phosphorus, pl 2.5 2.3 - 4.5 mg/dL Blood 06/16/2024 12:4 2 PM [employer] 06/16/2024 12:49 PM [employer]TAIN Misael Felix MD LAB BLOOD ORDERABLES Final Result [facility] Department [place] [address] * Magnesium (06/16/2024 12:42 PM CL[employer]TAIN) [facility] Magnesium 2.0 1.4 - 2.5 mg/dL Blood 06/16/2024 12:4 2 PM [employer] 06/16/2024 12:49 PM [employer]TAIN Misael Felix MD LAB BLOOD ORDERABLES Final Result Performing Organization Address [facility] Co de Phone Number [facility] Department [place] [address] * (ABNORMAL) Comprehensive metabolic panel (06/16/2024 12:42 PM CL[employer]TAIN) [facility] Sodium 143 135 - 145 mmol/L Potassium, pl 3.5 3.3 - 4.9 mmol/L [facility] Chloride 111(H) 97 - 110 mmol/L [facility] CO2 26 22 - 32 mmol/L [facility] Anion gap 6 2 - 15 mmol/L [facility] BUN 6 6 - 25 mg/dL [facility] Creatinine 0.56(L) 0.80 - 1.30 mg/dL [facility] Glucose 94 70 - 199 mg/dL [facility] Comment: Interpretive Data Fasting glucose >/= 126 [...] 2022. Calcium 8.9 8.5 - 10.3 mg/dL [facility] Bilirubin, total 0.4 0.1 - 1.2 mg/dL [facility] Protein, pl 6.3(L) 6.5 - 8.5 g/dL [facility] Albumin 3.3(L) 3.5 - 5.0 g/dL [facility] Alk phos 79 40 - 130 Units/L [facility] ALT 10 7 - 55 Units/L [facility] AST 18 10 - 50 Units/L [facility] Blood 06/16/2024 12:4 2 PM [employer] 06/16/2024 12:49 PM [employer] us Misael Felix MD LAB BLOOD ORDERABLES Final Result [facility] Department [place] [address] * XR Abdomen Ap 1 Vw (06/15/2024 1:57 AM [employer]) Anatomical Region Laterality Modality Body, Abdomen N/A Computed Radiogr aphy 06/15/2024 3:15 PM [employer] Impressions 06/15/2024 4:44 PM [employer]TAIN There is a gastrostomy tube with tip [...] Sean Angel M.D. Narrative 06/15/2024 4:44 PM [employer] EXAMINATION: Abdomen, one view. HISTORY: Abdominal distension. [...] Res ult * eGFR (06/13/2024 4:59 AM [employer]) eGFR >90 >=60 mL/min/1. 73 m2 Comment: [...] last reviewed 2021. Blood 06/13/2024 4:59 AM [employer] 06/13/2024 5:38 AM [employer] us Ryan Jauregui MD LAB BLOOD ORDERABLES Final Resul t [facility] Department [place] [address] * (ABNORMAL) Differential, auto (06/13/2024 4:59 AM [employer]) Neutrophil abs 10.3(H) 1.5 - 6.5 K/cumm Imm gran abs 0.1 0.0 - 0.1 K/cumm [facility] Lymphocyte abs 3.0 0.8 - 3.3 K/cumm [facility] Monocyte abs 0.9(H) 0.2 - 0.8 K/cumm [facility] [facility] Eosinophil abs 0.2 0.0 - 0.5 K/cumm [facility] Basophil abs 0.0 0.0 - 0.1 K/cumm [facility] Neutrophil pct 70.9 % [facility] Comment: Interpretive Data Percent cell count reference ranges are not reported, since discordance with absolute values may lead to misinterpretation of CBC data. Current Interpretive Data was last revised on 2017. Imm gran pct 0.4 % [facility] Comment: Interpretive Data Percent cell count reference ranges are not reported, since discordance with absolute values may lead to misinterpretation of CBC data. Current Interpretive Data was last revised on 2017. Lymphocyte pct 20.7 % [facility] Comment: Interpretive Data Percent cell count reference ranges are not reported, since discordance with absolute values may lead to misinterpretation of CBC data. Current Interpretive Data was last revised on 2017. Monocyte pct 6.5 % [facility] Comment: Interpretive Data Percent cell count reference ranges are not reported, since discordance with absolute values may lead to misinterpretation of CBC data. Current Interpretive Data was last revised on 2017. Eosinophil pct 1.4 % [facility] Comment: Interpretive Data Percent cell count reference ranges are not reported, since discordance with absolute values may lead to misinterpretation of CBC data. Current Interpretive Data was last revised on 2017. Basophil pct 0.1 % [facility] Comment: Interpretive Data Percent cell count reference ranges are not reported, since discordance with absolute values may lead to misinterpretation of CBC data. Current Interpretive Data was last revised on 2017. Blood 06/13/2024 4:59 AM [employer] 06/13/2024 5:38 AM [employer] us Ryan Jauregui MD LAB BLOOD ORDERABLES Final Resul t [facility] Department [place] [address] * Lacosamide level (06/13/2024 4:59 AM [employer]) Pathologist [facility] Lacosamide 1.4 1.0 - 10.0 mcg/mL [facility] Comment: ADDITIONAL INFORMATION This test was developed and its performance characteristics determined by [facility] in a manner consistent with CLIA requirements. This test has not been cleared or approved by the U.S. Food and Drug Administration. Test Performed by: [facility] [address] [place] [address] Refractory Tile Helper: Marianela Odonnell Ph.D.; CLIA# [id number] Blood 06/13/2024 4:59 AM [employer] 06/13/2024 5:38 AM [employer] Ryan Jauregui MD LAB BLOOD ORDERABLES Final Resul t [facility] Department [place] [address] [facility] * (ABNORMAL) CBC with auto differential (06/13/2024 4:59 AM [employer]) [facility] WBC 14.6(H) 3.8 - 9.9 K/cumm Hgb 13.2 13.0 - 17.5 g/dL [facility] Hct 39.7 38.9 - 50.3 % [facility] Plt 155 150 - 400 K/cumm [facility] MPV 12.4(H) 9.1 - 12.3 fL [facility] RBC 4.03(L) 4.30 - 5.80 M/cumm [facility] MCV 98.5(H) 81.3 - 96.4 fL [facility] MCH 32.8 27.1 - 33.3 pg [facility] MCHC 33.2 32.3 - 35.7 g/dL [facility] RDW CV 13.6 11.1 - 14.9 % [facility] RDW SD 50.2(H) 35.7 - 48.1 fL [facility] NRBC abs 0.00 0.00 - 0.01 K/cumm [facility] Blood 06/13/2024 4:59 AM [employer] 06/13/2024 5:38 AM [employer] Ryan Jauregui MD LAB BLOOD ORDERABLES Final Resul t [facility] Department [place] [address] * Blood culture Blood (06/13/2024 4:59 AM [employer]) Report Final Report: No growth Blood 06/13/2024 4:59 AM [employer] 06/13/2024 6:21 AM [employer]TAIN Narrative [facility] - 06/17/2024 7:00 AM [employer] From a different site than #1. Collection->Peripheral [...] performance characteristics have been verified by the [facility]biology [facility]. For questions about this culture, contact the Microbiology Laboratory at [phone]. Interpretive data was last revised on 24. us Ryan Jauregui MD LAB MICROBIOLOGY - GENERAL ORDER NICHOLE Final Result Performing Organization Address [facility] de Phone Number [facility] [place] [address] * Phosphorus (06/13/2024 4:59 AM [employer]) Phosphorus, pl 3.0 2.3 - 4.5 mg/dL Blood 06/13/2024 4:59 AM [employer] 06/13/2024 5:38 AM [employer] us Ryan Jauregui MD LAB BLOOD ORDERABLES Final Resul t Performing Organization Address [facility] de Phone Number [facility] Department [place] [address] * Magnesium (06/13/2024 4:59 AM [employer]) Magnesium 1.9 1.4 - 2.5 mg/dL Blood 06/13/2024 4:59 AM [employer] 06/13/2024 5:38 AM [employer] us Ryan Jauregui MD LAB BLOOD ORDERABLES Final Resul t Performing Organization Address [facility] de Phone Number [facility] Department [place] [address] * (ABNORMAL) Valproic acid level, total (06/13/2024 4:59 AM [employer]) Valproic Acid 48.0(L) 50.0 - 100.0 mcg/mL Comment: Interpretive Data Therapeutic or toxic effects of anticonvulsant drugs may occur at different concentrations in different patients and the correlation between dose and clinical effect must be evaluated individually. Current interpretative data was last revised on 13. Blood 06/13/2024 4:59 AM [employer] 06/13/2024 5:38 AM [employer] us Ryan Jauregui MD LAB BLOOD ORDERABLES Final Resul t Performing Organization Address [facility]/ZIP Co de Phone Number [facility] Department [place] [address] * (ABNORMAL) Comprehensive metabolic panel (06/13/2024 4:59 AM [employer]) Sodium 141 135 - 145 mmol/L Potassium, pl 3.9 3.3 - 4.9 mmol/L [facility] Chloride 106 97 - 110 mmol/L [facility] CO2 28 22 - 32 mmol/L [facility] Anion gap 7 2 - 15 mmol/L [facility] BUN 8 6 - 25 mg/dL [facility] Creatinine 0.54(L) 0.80 - 1.30 mg/dL [facility] Glucose 103 70 - 199 mg/dL [facility] Comment: Interpretive Data Fasting glucose >/= 126 [...] 2022. Calcium 9.5 8.5 - 10.3 mg/dL [facility] Bilirubin, total 0.5 0.1 - 1.2 mg/dL [facility] Protein, pl 7.1 6.5 - 8.5 g/dL [facility] Albumin 3.7 3.5 - 5.0 g/dL [facility] Alk phos 96 40 - 130 Units/L [facility] ALT 17 7 - 55 Units/L [facility] AST 22 10 - 50 Units/L [facility] Blood 06/13/2024 4:59 AM [employer] 06/13/2024 5:38 AM [employer] Ryan Jauregui MD LAB BLOOD ORDERABLES Final Resul t [facility] Department [place] [address] * TSH (06/12/2024 3:51 PM [employer]) [facility] Thyroid Stimulating Hormone 2.58 0.30 - 4.20 mcIUnit/mL Blood 06/12/2024 3:51 PM [employer] 06/12/2024 5:05 PM [employer] us Ryan Jauregui MD LAB BLOOD ORDERABLES Final Resul t [facility] Department [place] [address] * (ABNORMAL) Differential, auto (06/12/2024 3:30 PM [employer]TAIN) [facility] Neutrophil abs 9.5(H) 1.5 - 6.5 K/cumm Imm gran abs 0.0 0.0 - 0.1 K/cumm [facility] Lymphocyte abs 2.3 0.8 - 3.3 K/cumm [facility] Monocyte abs 1.1(H) 0.2 - 0.8 K/cumm [facility] Eosinophil abs 0.2 0.0 - 0.5 K/cumm [facility] Basophil abs 0.0 0.0 - 0.1 K/cumm [facility] Neutrophil pct 72.4 % [facility] Comment: Interpretive Data Percent cell count reference ranges are not reported, since discordance with absolute values may lead to misinterpretation of CBC data. Current Interpretive Data was last revised on 2017. Imm gran pct 0.2 % [facility] Comment: Interpretive Data Percent cell count reference ranges are not reported, since discordance with absolute values may lead to misinterpretation of CBC data. Current Interpretive Data was last revised on 2017. Lymphocyte pct 17.4 % [facility] Comment: Interpretive Data Percent cell count reference ranges are not reported, since discordance with absolute values may lead to misinterpretation of CBC data. Current Interpretive Data was last revised on 2017. Monocyte pct 8.3 % [facility] Comment: Interpretive Data Percent cell count reference ranges are not reported, since discordance with absolute values may lead to misinterpretation of CBC data. Current Interpretive Data was last revised on 2017. Eosinophil pct 1.5 % [facility] Comment: Interpretive Data Percent cell count reference ranges are not reported, since discordance with absolute values may lead to misinterpretation of CBC data. Current Interpretive Data was last revised on 2017. Basophil pct 0.2 % [facility] Comment: Interpretive Data Percent cell count reference ranges are not reported, since discordance with absolute values may lead to misinterpretation of CBC data. Current Interpretive Data was last revised on 2017. Blood 06/12/2024 3:30 PM [employer]TAIN 06/12/2024 5:10 PM CL[employer]TAIN us Ryan Jauregui MD LAB BLOOD ORDERABLES Final Resul t [facility] Department [place] [address] * (ABNORMAL) CBC with auto differential (06/12/2024 3:30 PM [employer]) WBC 13.3(H) 3.8 - 9.9 K/cumm Hgb 13.7 13.0 - 17.5 g/dL [facility] Hct 41.5 38.9 - 50.3 % [facility] Plt 162 150 - 400 K/cumm [facility] MPV 13.6(H) 9.1 - 12.3 fL [facility] RBC 4.27(L) 4.30 - 5.80 M/cumm [facility] MCV 97.2(H) 81.3 - 96.4 fL [facility] MCH 32.1 27.1 - 33.3 pg [facility] MCHC 33.0 32.3 - 35.7 g/dL [facility] RDW CV 13.7 11.1 - 14.9 % [facility] RDW SD 48.8(H) 35.7 - 48.1 fL [facility] NRBC abs 0.00 0.00 - 0.01 K/cumm [facility] Blood 06/12/2024 3:30 PM [employer]TAIN 06/12/2024 5:10 PM [employer]TAIN Result [facility] Ryan Jauregui MD LAB BLOOD ORDERABLES Final Resul t Performing Organization Address [facility] de Phone Number [facility] Department [place] [address] * Hemoglobin A1c (06/12/2024 3:30 PM CL[employer]TAIN) [facility] Hgb A1C 4.9 4.0 - 5.6 % Estimated Average Glucose 94 mg/dL [facility] Comment: The ADA recommends reporting an estimated Average Glucose (eAG) with all Hemoglobin A1c results using the equation derived from a study of 507 normal and diabetic adults. Minority populations were underrepresented and children were not included. (Diabetes Care 2020; 43(S1): S66-S76). The eAG is not equivalent to a fasting glucose. Blood 06/12/2024 3:30 PM [employer]TAIN 06/12/2024 5:10 PM [employer]TAIN Result [facility] Ryan Jauregui MD LAB BLOOD ORDERABLES Final Resul t Performing Organization Address [facility] de Phone Number [facility] Department [place] [address] * Troponin I high-sensitivity 4-hour (06/12/2024 3:27 PM CL[employer]TAIN) Pathologist [facility] Trop I hs 10 <=35 ng/L Comment: Interpretive Data For further hscTnI resources including the diagnostic algorithm and an aid in interpretation, copy and paste this link: [email or web address]/[email or web address] Current Interpretive Data last revised 2019. Trop I hs delta 1 ng/L [facility] Trop I hs interp Insignificant [facility] Blood 06/12/2024 3:27 PM [employer]TAIN 06/12/2024 5:06 PM [employer]TAIN Shakila Jung MD LAB BLOOD ORDERABL ES Final Result [facility] Department [place] [address] * XR Chest 1 Vw Portable (06/12/2024 2:47 PM CL[employer]TAIN) Anatomical Region Laterality Modality Body, Chest N/A Computed Radiogr aphy 06/12/2024 2:51 PM [employer]TAIN Impressions 06/12/2024 2:51 PM [employer]TAIN Comparison to 10/07/2021. Tracheostomy device in place. Small lung volumes with bibasilar atelectasis. No pneumothorax or focal consolidation. Unchanged cardiomediastinal silhouette, accounting for differences volumes. Small left pleural effusion. No right pleural effusion. Electronically signed by: Raul Whitfield M.D. Narrative 06/12/2024 2:51 PM [employer]TAIN EXAMINATION: 1 view chest radiograph Procedure Note [...] Urine, in and out catheter (06/12/2024 2:38PM [employer]TAIN) Color, ur Straw Yellow Clarity, ur Clear Clear [facility] Specific gravity, ur >1.042(H) 1.003 - 1.030 [facility] pH, urine 8.5 [facility] Comment: Interpretive Data U rine pH is affected by diet, medications, systemic acid-base disturbances, and renal tubular function. pH may affect urinary stone formation. For example, urine pH below 6.0 may help reduce the tendency for calcium phosphate stones and pH greater than 6.0 may reduce the tendency for uric acid stone formation. Source: [facility] Current Interpretive Data was last revised on 2017 Protein, ur ql Trace Negative [facility] Glucose, ur ql Negative Negative [facility] Ketones, ur Negative Negative [facility] Bilirubin, ur Negative Negative [facility] Blood, ur Negative Negative [facility] Urobilinogen, ur 2.0(A) <2.0 mg/dL [facility] Nitrite, ur Negative Negative [facility] Leukocyte esterase, ur Negative Negative [facility] UA reflex comment Reflex conditions for microscopic UA and culture not met. [facility] Urine, in and out catheter 06/12/2024 2:38 PM [employer]TAIN 06/12/2024 3:47 PM [employer] us Shakila Jung MD LAB MICROBIOLOGY - GENERAL ORDERABLES Final Result [facility] Department [place] [address] * (ABNORMAL) Differential, auto (06/12/2024 2:23 PM CL[employer]) Neutrophil abs 9.9(H) 1.5 - 6.5 K/cumm Imm gran abs 0.1 0.0 - 0.1 K/cumm [facility] Lymphocyte abs 2.5 0.8 - 3.3 K/cumm [facility] Monocyte abs 1.0(H) 0.2 - 0.8 K/cumm [facility] Eosinophil abs 0.2 0.0 - 0.5 K/cumm [facility] Basophil abs 0.0 0.0 - 0.1 K/cumm [facility] Neutrophil pct 72.4 % [facility] Comment: Interpretive Data Percent cell count reference ranges are not reported, since discordance with absolute values may lead to misinterpretation of CBC data. Current Interpretive Data was last revised on 2017. Imm gran pct 0.4 % [facility] Comment: Interpretive Data Percent cell count reference ranges are not reported, since discordance with absolute values may lead to misinterpretation of CBC data. Current Interpretive Data was last revised on 2017. Lymphocyte pct 18.4 % [facility] Comment: Interpretive Data Percent cell count reference ranges are not reported, since discordance with absolute values may lead to misinterpretation of CBC data. Current Interpretive Data was last revised on 2017. Monocyte pct 7.2 % [facility] Comment: Interpretive Data Percent cell count reference ranges are not reported, since discordance with absolute values may lead to misinterpretation of CBC data. Current Interpretive Data was last revised on 2017. Eosinophil pct 1.5 % [facility] Comment: Interpretive Data Percent cell count reference ranges are not reported, since discordance with absolute values may lead to misinterpretation of CBC data. Current Interpretive Data was last revised on 2017. Basophil pct 0.1 % [facility] Comment: Interpretive Data Percent cell count reference ranges are not reported, since discordance with absolute values may lead to misinterpretation of CBC data. Current Interpretive Data was last revised on 2017. Blood 06/12/2024 2:23 PM [employer] 06/12/2024 4:04 PM [employer] us Shakila Jung MD LAB BLOOD ORDERABL ES Final Result [facility] Department [place] [address] * (ABNORMAL) CBC with auto differential (06/12/2024 2:23 PM CL[employer]TAIN) WBC 13.7(H) 3.8 - 9.9 K/cumm Hgb 14.1 13.0 - 17.5 g/dL [facility] Hct 42.0 38.9 - 50.3 % [facility] Plt 171 150 - 400 K/cumm [facility] MPV 13.2(H) 9.1 - 12.3 fL [facility] RBC 4.36 4.30 - 5.80 M/cumm [facility] MCV 96.3 81.3 - 96.4 fL [facility] MCH 32.3 27.1 - 33.3 pg [facility] MCHC 33.6 32.3 - 35.7 g/dL [facility] RDW CV 13.5 11.1 - 14.9 % [facility] RDW SD 48.5(H) 35.7 - 48.1 fL [facility] NRBC abs 0.00 0.00 - 0.01 K/cumm [facility] Blood 06/12/2024 2:23 PM [employer] 06/12/2024 4:04 PM [employer] Shakila Jung MD LAB BLOOD ORDERABL ES Final Result Performing Organization Address [facility] de Phone Number [facility] Department [place] [address] * Troponin I high-sensitivity 2-hour (06/12/2024 1:56 PM CL[employer]) Trop I hs 10 <=35 ng/L Comment: Interpretive Data For further hscTnI resources including the diagnostic algorithm and an aid in interpretation, copy and paste this link: [email or web address]/[email or web address] Current Interpretive Data last revised 2019. Trop I hs delta 1 ng/L [facility] Trop I hs interp Insignificant [facility] Blood 06/12/2024 1:56 PM [employer]TAIN 06/12/2024 2:22 PM [employer] Shakila Jung MD LAB BLOOD ORDERABL ES Final Result Performing Organization Address [facility]/ZIP Co de Phone Number [facility] Department [place] [address] * CT Abdomen Pelvis W Contrast (06/12/2024 12:22 PM CL[employer]TAIN) Anatomical Region Laterality Modality Body N/A Computed Tomogra phy 06/12/2024 12:4 9 PM [employer] Impressions 06/12/2024 12:49 PM [employer]TAIN No acute findings in the abdomen/pelvis. Specifically, no bowel obstruction. Electronically signed by: Raul Whitfield M.D. Narrative 06/12/2024 12:49 PM CL[employer]TAIN EXAMINATION: Computed tomography of the abdomen and [...] ED PERIPHERAL LINE INSERTION (06/12/2024 11:50 AM CL[employer]TAIN) Narrative Shakila Jung MD - 06/12/2024 11:50 AM [employer] Shakila Jung MD 06/12/2024 11:50 AM Peripheral [...] and COVID-19 PCR Nasopharyngeal (06/12/2024 11:39 AM CLAM [employer]TAIN) [facility] COVID-19 RNA Negative Negative [facility] Influenza A RNA Negative Negative [facility] Influenza B RNA Negative Negative [facility] RSV RNA Negative Negative [facility] Comment: Interpretive data: Testing performed by [facility] ([phone]). This test is performed using the [employer] Interactive Xpert Xpress CoV-2/Flu/RSV plus assay. This is a multiplex, real-time reverse transcriptase PCR assay intended for the qualitative detection of nucleic acid from SARS-CoV-2, influenza A, influenza B, and respiratory syncytial virus. This assay has been cleared by the [place] Food and Drug administration. The performance characteristics have been verified by the [facility]. Results must be considered in the clinical context, and a negative result does not rule out infection. Interpretive Data last revised 2023 Nasopharyngeal 06/12/2024 11 :39 AM [employer]TAIN 06/12/2024 12:55 PM CL[employer]TAIN Narrative [facility] - 06/12/2024 1:39 PM CL[employer]TAIN Is the Patient experiencing symptoms consistent with COVID?->Unknown Result [facility] Shakila Jung MD LAB MICROBIOLOGY - GENERAL ORDERABLES Final Result Performing Organization Address [facility] Co de Phone Number [facility] [place] [address] [facility] * POCT creatinine (06/12/2024 11:29 AM CLAM [employer]TAIN) Pathologist [facility] Creatinine POC 0.7 0.7 - 1.3 mg/dL Blood 06/12/2024 11:2 9 AM [employer] 06/12/2024 11:29 AM [employer] Result [facility] Shakila Jung MD LAB POCT ORDERABLE S - DEVICE Final Result Performing Organization Address [facility] de Phone Number [facility] [place] [address] * Troponin I high-sensitivity series (baseline, 2hr, 4hr, 6hr) (06/12/2024 11:22 AM CL[employer]TAIN) Pathologist [facility] Trop I hs 9 <=35 ng/L Comment: Interpretive Data For further hscTnI resources including the diagnostic algorithm and an aid in interpretation, copy and paste this link: [email or web address]/[email or web address] Current Interpretive Data last revised 2019. 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 Imm gran abs See Comment 0.0 - 0.1 [facility] Comment:Credited, specimen c lotted. Lymphocyte abs See Comment 0.8 - 3.3 [facility] Comment:Credited, specimen c lotted. Monocyte abs See Comment 0.2 - 0.8 [facility] Comment:Credited, specimen c lotted. Eosinophil abs See Comment 0.0 - 0.5 [facility] Comment:Credited, specimen c lotted. Basophil abs See Comment 0.0 - 0.1 [facility] Comment:Credited, specimen c lotted. Neutrophil pct See Comment [facility] Comment: Credited, specimen clotted. Interpretive Data Percent cell count reference ranges are not reported, since discordance with absolute values may lead to misinterpretation of CBC data. Current Interpretive Data was last revised on 2017. Imm gran pct See Comment [facility] Comment: Credited, specimen clotted. Interpretive Data Percent cell count reference ranges are not reported, since discordance with absolute values may lead to misinterpretation of CBC data. Current Interpretive Data was last revised on 2017. Lymphocyte pct See Comment [facility] Comment: Credited, specimen clotted. Interpretive Data Percent cell count reference ranges are not reported, since discordance with absolute values may lead to misinterpretation of CBC data. Current Interpretive Data was last revised on 2017. Monocyte pct See Comment [facility] Comment: Credited, specimen clotted. Interpretive Data Percent cell count reference ranges are not reported, since discordance with absolute values may lead to misinterpretation of CBC data. Current Interpretive Data was last revised on 2017. Eosinophil pct See Comment [facility] Comment: Credited, specimen clotted. Interpretive Data Percent cell count reference ranges are not reported, since discordance with absolute values may lead to misinterpretation of CBC data. Current Interpretive Data was last revised on 2017. Basophil pct See Comment [facility] Comment: Credited, specimen clotted. Interpretive Data Percent cell count reference ranges are not reported, since discordance with absolute values may lead to misinterpretation of CBC data. Current Interpretive Data was last revised on 2017. Blood 06/12/2024 11:2 2 AM CLAM DRED[employer] BOAT CAPTAIN 06/12/2024 1:07 PM CLAM DREDGE BOAT CAPTAIN us Shakila Jung MD LAB BLOOD ORDERABL ES Edited Result - Final [facility] Department [place] [address] * CBC with auto differential (06/12/2024 11:22 AM CLAM DREDGE BOAT CAPTAIN) WBC See Comment 3.8 - 9.9 Comment:Credited, specimen c lotted. Hgb See Comment 13.0 - 17.5 [facility] Comment:Credited, specimen c lotted. Hct See Comment 38.9 - 50.3 [facility] Comment:Credited, specimen c lotted. Plt See Comment 150 - 400 [facility] Comment: Credited, specimen clotted. spoke to ALFRED Velásquez 06/12/2024 14:17:24 CLAM [employer]ED[employer] BOAT CAPTAIN fv MPV See Comment 9.1 - 12.3 [facility] Comment:Credited, specimen c lotted. RBC See Comment 4.30 - 5.80 [facility] Comment:Credited, specimen c lotted. MCV See Comment 81.3 - 96.4 [facility] Comment:Credited, specimen c lotted. MCH See Comment 27.1 - 33.3 [facility] Comment:Credited, specimen c lotted. MCHC See Comment 32.3 - 35.7 [facility] Comment:Credited, specimen c lotted. RDW CV See Comment 11.1 - 14.9 [facility] Comment:Credited, specimen c lotted. RDW SD See Comment 35.7 - 48.1 [facility] Comment:Credited, specimen c lotted. NRBC abs See Comment 0.00 - 0.01 K/cumm [facility] Comment:Credited, specimen c lotted. Blood 06/12/2024 11:2 2 AM CL[employer] DRED[employer] CAPTAIN 06/12/2024 1:07 PM CLAM DREDGE BOAT CAPTAIN us Shakila Jung MD LAB BLOOD ORDERABL ES Final Result [facility] Department [place] [address] * Lipase (06/12/2024 11:22 AM CLAM DREDGE BOAT CAPTAIN) Lipase 24 10 - 99 Units/L Blood 06/12/2024 11:2 2 AM CLAM DREDGE BOAT CAPTAIN 06/12/2024 1:07 PM CLAM DREDGE BOAT CAPTAIN Shakila Jung MD LAB BLOOD ORDERABL ES Final Result Performing Organization Address [facility] de Phone Number [facility] [place] [address] * (ABNORMAL) Valproic acid level, total (06/12/2024 11:22 AM CLAM DREDGE BOAT CAPTAIN) Pathologist [facility] Valproic Acid 48.0(L) 50.0 - 100.0 mcg/mL Comment: Interpretive Data Therapeutic or toxic effects of anticonvulsant drugs may occur at different concentrations in different patients and the correlation between dose and clinical effect must be evaluated individually. Current interpretative data was last revised on 13. Blood 06/12/2024 11:2 2 AM CLAM DREDGE BOAT CAPTAIN 06/12/2024 1:07 PM CLAM DREDGE BOAT CAPTAIN Shakila Jung MD LAB BLOOD ORDERABL ES Final Result Performing Organization Address [facility] [place] [place] de Phone Number [facility] [place] [address] * (ABNORMAL) Comprehensive metabolic panel (06/12/2024 11:22 AM CLAM DREDGE BOAT CAPTAIN) Sodium 142 135 - 145 mmol/L Potassium, pl 4.6 3.3 - 4.9 mmol/L [facility] Comment:Hemolyzed; Potassium value may be falsely elevated by as much as 0.6-1.0 mmol/L. Suggest redraw and reanalysis. Chloride 101 97 - 110 mmol/L [facility] CO2 29 22 - 32 mmol/L [facility] Anion gap 12 2 - 15 mmol/L [facility] BUN 11 6 - 25 mg/dL [facility] Creatinine 0.60(L) 0.80 - 1.30 mg/dL [facility] Glucose 89 70 - 199 mg/dL [facility] Comment: Interpretive Data Fasting glucose >/= 126 [...] Calcium 10.3 8.5 - 10.3 mg/dL [facility] Bilirubin, total 0.3 0.1 - 1.2 mg/dL [facility] Protein, pl 8.5 6.5 - 8.5 g/dL [facility] Albumin 4.3 3.5 - 5.0 g/dL [facility] Alk phos 114 40 - 130 Units/L [facility] ALT 22 7 - 55 Units/L [facility] AST 45 10 - 50 Units/L [facility] Comment:Hemolyzed; result ma y be falsely elevated Blood 06/12/2024 11:2 2 AM CLAM DREDGE BOAT CAPTAIN 06/12/2024 1:07 PM CLAM DREDGE BOAT CAPTAIN us Shakila Jung MD LAB BLOOD ORDERABL ES Final Result [facility] Department [place] [address] * ECG 12-LEAD (06/12/2024 11:01 AM CLAM DREDGE BOAT CAPTAIN) Narrative [facility] - 06/12/2024 11:01 AM CLAM DREDGE BOAT CAPTAIN Shakila Jung MD 06/12/2024 11:02 AM ECG [...] Jung MD ECG ORDERABLES Fi nal Result [facility] * TNI with LIPID PANEL (08/24/2017 4:57 PM CDT) Troponin I < 0.300 0.000 - 0.300 ng/mL 08/24/2017 5:29 PM T [employer] HISTORICAL RESULTS Comment: Reference using ZAC Chemiluminescence Negative: Repeat in 4-6 hours as indicated. Triglycerides 34 0 - 199 mg/dL 08/24/2017 5:30 PM T [facility] [employer] HISTORICAL RESULTS Comment:12 hr pc highly avani mmended for Triglyceride Cholesterol 129 0 - 199 mg/dL 08/24/2017 5:30 PM T [facility] [employer] HISTORICAL RESULTS Comment: Borderline: 200-239 High Risk: >239 HDL Cholesterol 71 mg/dL 8 5:30 PM T [facility] [employer] HISTORICAL RESULTS Comment: Reference Ranges: Males: >=40 mg/dL Females: >=50 mg/dL LDL Cholesterol, Calc 51 0 - 130 mg/dL 08/24/2017 5:30 PM T [facility] [employer] HISTORICAL RESULTS Comment:High Risk > 159 mg/d L Cholesterol/HDL Ratio 1.8 08/24/2017 5:30 PM T [facility] [employer] HISTORICAL RESULTS Comment: Cholesterol / HDL Ratio 3.5:1 or less is desirable. Cholesterol / HDL Ratio greater than 5:1 is considered higher risk for developing heart disease. 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 Source: [facility] [employer] 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 Source: [facility] [employer] 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
--- OUTSIDE RECORDS SUMMARY | 2024-08-22 02:17 | XMS_ITS | Clinical Summary ---
Author Organization [facility] [employer] Address [address] [place] [address] Care Team Providers Care Graduate Intern Name Role Phone Elizabeth Sullivan RN Unavailable [phone] Dany Monsivais MD Primary Care Provider [phone] Source Comments [facility],non-owned Affiliates and Associated Physician Practices is amultiple site organization consisting of ambulatory clinics and hospital sitesin [place], [place], [place] and [place]. This disclosure is being madepursuant to the Care Everywhere program and may not contain all information available regarding this patient. Last updated 18.[facility] [employer] Allergies Active Allergy Reactions Criticality Noted Date [...] No evidence of infection Urine cultures from [facility] last month were negative growth as [...] Department Care Team Description 08/02/2024 4:31 PM PICKING MACHINE OPERATOR - 08/08/2024 8:48 PM CDT Hospital Encounter [facility] [address] [place] [address] Elmo Johnson MD Mayer, Joshua C, DO Arshad, Iqra, MD Archuleta, Lydia, MD Joag, Madhura, MD Internal Medicine Discharge Disposition: Care Home or Supportive Care 08/02/2024 1:23 AM PICKING MACHINE OPERATOR - 08/02/2024 8:15 AM PICKING MACHINE OPERATOR Emergency [facility] EMERGENCY DEPARTMENT [address] [place] [phone] Arthur Marinelli MD Other tracheostomy complication (Primary Dx); Abdominal pain, unspecified abdominal location Discharge Disposition: Correction Facility 08/02/2024 Travel 07/27/2024 3:54 PM PICKING MACHINE OPERATOR - 07/28/2024 6:53 AM PICKING MACHINE OPERATOR Emergency [facility] EMERGENCY DEPARTMENT [address] [place] [phone] Serjio Vilchis MD Feeding intolerance (Primary Dx); Generalized abdominal pain; Chronic pulmonary aspiration, initial encounter Discharge Disposition: Correction Facility 07/27/2024 Travel 07/18/2024 4:15 PM PICKING MACHINE OPERATOR - 07/18/2024 4:45 PM PICKING MACHINE OPERATOR Surgery [facility] ENDOSCOPY [address] [place] [phone] Clifton Trinh MD EGD(ISO) 07/18/2024 4:05 PM PICKING MACHINE OPERATOR Anesthesia Event [facility] ENDOSCOPY [address] [place] [phone] Teri Trent MD Dobbs, Kristin L, [employer] MAKER-NEGATIVE NOTCHER 07/16/2024 9:23 PM PICKING MACHINE OPERATOR - 07/19/2024 5:51 PM PICKING MACHINE OPERATOR Hospital Encounter [facility] [address] ACUTE [address] [place] [phone] Quan Gan MD Arshad, Iqra, MD Bastin, Taylor J, MD Morreale, Peter J III, MD Emergency Medicine Discharge Disposition: Correction Facility 07/16/2024 Travel 06/07/2024 5:04 PM PICKING MACHINE OPERATOR - 06/09/2024 9:50 PM PICKING MACHINE OPERATOR Hospital Encounter [facility] Early Admission Unit [address] [place] [address] Elizabeth Hernandez MD Miller, MD Marleny Caldera Shiva F, MD Heis, Farah, MD Internal Medicine Discharge Disposition: Other Facility Not Defined Elsewhere 06/07/2024 Travel from Last 3 Months Immunizations Name Administration Dates Next Due [id number] primary monoval ent 12+ yr 0.3mL Purple [...] and heating? Not hard at all 08/06/2024 [facility] Occup[facility] ional [facility] [...] slept in a detention (including now)? No 06/19/2023 Housing Stability Vital Sign Answer Vinay e Recorded In the last 12 months, was t here a time when you were not able to pay the mortgage or rent on time? No 08/06/2024 In the past 12 months, how m any times have you moved where you were living? 1 08/06/2024 At any time in the past 12 m [facility], were you homeless or living in a detention (including now)? No 08/06/2024 Sex and Gender [...] 72.6 kg (160 lb) 08/04/2024 12:00 AM PICKING MACHINE OPERATOR Height 175.3 cm (5' 9.02 ) 08/04/2024 12:[address] Body Mass Index 23.62 08/04/2024 12:00 AM PICKING MACHINE OPERATOR Plan of Treatment Upcoming Encounters Date Type Department Care Team (Late st Contact Info) Description 12/05/2024 1:00 PM CDT Office Visit [facility] - Neurology [address] [place] [address], [place] [phone] Sean Raymundo, [address] [place] [address] [place] [phone] Health Maintenance Due Date Last Done Comments [...] POINT OF CARE Routine 08/05/2024 1:43 AM PICKING MACHINE OPERATOR CBC W/O DIFFERENTIAL Routine 08/05/2024 1:02 AM PICKING MACHINE OPERATOR Nausea without vomiting PT-INR [facility] Routine 08/05/2024 1:02 AM PICKING MACHINE OPERATOR Nausea without vomiting MAGNESIUM BLOOD Routine 08/05/2024 1:02 AM PICKING MACHINE OPERATOR Nausea without vomiting RENAL FUNCTION PANEL Routine 08/05/2024 1:02 AM PICKING MACHINE OPERATOR Nausea without vomiting CBC W/O DIFFERENTIAL Routine 08/04/2024 12:12 PM PICKING MACHINE OPERATOR Nausea without vomiting PSA FREE + TOTAL PANEL AM Draw 08/04/2024 12:12 PM PICKING MACHINE OPERATOR Acute cystitis without hematuria PT-INR [facility] Routine 08/04/2024 12:12 PM PICKING MACHINE OPERATOR Nausea without vomiting MAGNESIUM BLOOD Routine 08/04/2024 12:12 PM PICKING MACHINE OPERATOR Nausea without vomiting RENAL FUNCTION PANEL Routine 08/04/2024 12:12 PM PICKING MACHINE OPERATOR Nausea without vomiting CULTURE URINE STAT 08/03/2024 8:53 AM PICKING MACHINE OPERATOR Acute cystitis without hematuria HEMOGLOBIN A1C RINKU 08/03/2024 5:18 AM PICKING MACHINE OPERATOR Nausea without vomiting CBC W/O DIFFERENTIAL STAT 08/03/2024 5:18 AM PICKING MACHINE OPERATOR Nausea without vomiting PT-INR [facility] STAT 08/03/2024 5:18 AM PICKING MACHINE OPERATOR Nausea without vomiting MAGNESIUM BLOOD STAT 08/03/2024 5:18 AM PICKING MACHINE OPERATOR Nausea without vomiting RENAL FUNCTION PANEL STAT 08/03/2024 5:18 AM PICKING MACHINE OPERATOR Nausea without vomiting TYPE + SCREEN PANEL STAT 08/02/2024 9 :53 [address] P[address]ING MACHINE OPERATOR CT CHEST ABDOMEN PELVIS W CONT STAT 08/02/2024 9:42 PM PICKING MACHINE OPERATOR Nausea without vomiting XR CHEST 1VW PORTABLE STAT 08/02/2024 5:15 PM PICKING MACHINE OPERATOR Nausea without vomiting URINALYSIS REFLEX TO MICROSCOPIC NO CULTURE STAT 08/02/2024 5:08 PM PICKING MACHINE OPERATOR PT-INR [facility] STAT 08/02/2024 5:08 PM PICKING MACHINE OPERATOR COMPREHENSIVE METABOLIC PANEL STAT 08/02/2024 5:08 PM PICKING MACHINE OPERATOR LIPASE BLOOD STAT 08/02/2024 5:08 PM PICKING MACHINE OPERATOR CBC W AUTO DIFFERENTIAL STAT 08/02/2024 5:08 PM PICKING MACHINE OPERATOR XR CHEST 1VW PORTABLE STAT 08/02/2024 2:33 AM PICKING MACHINE OPERATOR Abdominal pain, unspecified abdominal location LIPASE BLOOD STAT 08/02/2024 2:03 AM PICKING MACHINE OPERATOR COMPREHENSIVE METABOLIC PANEL STAT 08/02/2024 2:03 AM PICKING MACHINE OPERATOR CBC W AUTO DIFFERENTIAL STAT 08/02/2024 2:03 AM PICKING MACHINE OPERATOR CT CHEST ABDOMEN PELVIS W CONT STAT 07/28/2024 12:25 AM PICKING MACHINE OPERATOR Generalized abdominal pain COMPREHENSIVE METABOLIC PANEL STAT 07/27/2024 6:26 PM PICKING MACHINE OPERATOR CBC W AUTO DIFFERENTIAL STAT 07/27/2024 6:26 PM PICKING MACHINE OPERATOR TROPONIN-I HIGH SENSITIVE BASELINE + 1HR STAT 07/27/2024 6:26 PM PICKING MACHINE OPERATOR MAGNESIUM BLOOD STAT 07/27/2024 6:26 PM PICKING MACHINE OPERATOR LIPASE BLOOD STAT 07/27/2024 6:26 PM PICKING MACHINE OPERATOR EKG 12-LEAD Routine 07/27/2024 5:34 PM PICKING MACHINE OPERATOR Generalized abdominal pain XR CHEST 1VW PORTABLE Routine 07/27/2024 12:39 PM PICKING MACHINE OPERATOR Nausea and vomiting, unspecified vomiting type GLUCOSE - POINT OF CARE Routine 07/19/2024 5:00 PM PICKING MACHINE OPERATOR GLUCOSE - POINT OF CARE Routine 07/19/2024 12:10 PM PICKING MACHINE OPERATOR GLUCOSE - POINT OF CARE Routine 07/19/2024 8:10 AM PICKING MACHINE OPERATOR CBC W AUTO DIFFERENTIAL Routine 07/19/2024 5:27 AM PICKING MACHINE OPERATOR Coffee ground emesis GLUCOSE - POINT OF CARE Routine 07/19/2024 3:34 AM PICKING MACHINE OPERATOR GLUCOSE - POINT OF CARE Routine 07/18/2024 11:33 PM PICKING MACHINE OPERATOR GLUCOSE - POINT OF CARE Routine 07/18/2024 8:01 PM PICKING MACHINE OPERATOR PATHOLOGY TISSUE Routine 07/18/2024 4:27 PM PICKING MACHINE OPERATOR Coffee ground emesis AK ED EGD FLEX TRANSORAL DX 07/18/2024 4:00 PM PICKING MACHINE OPERATOR Coffee ground emesis EGD Routine 07/18/2024 3:52 PM PICKING MACHINE OPERATOR GLUCOSE - POINT OF CARE Routine 07/18/2024 12:11 PM PICKING MACHINE OPERATOR GLUCOSE - POINT OF CARE Routine 07/18/2024 11:44 AM PICKING MACHINE OPERATOR CBC W AUTO DIFFERENTIAL Routine 07/18/2024 8:07 AM PICKING MACHINE OPERATOR Coffee ground emesis PT-INR [facility] Routine 07/18/2024 8:07 AM PICKING MACHINE OPERATOR Nausea and vomiting, unspecified vomiting type VALPROIC ACID LEVEL Routine 07/18/2024 8 :07 AM PICKING MACHINE OPERATOR Nausea and vomiting, unspecified vomiting type PHOSPHORUS BLOOD AM Draw 07/18/2024 8:07 AM PICKING MACHINE OPERATOR Coffee ground emesis COMPREHENSIVE METABOLIC PANEL AM Draw 07/18/2024 8:07 AM PICKING MACHINE OPERATOR Coffee ground emesis MAGNESIUM BLOOD AM Draw 07/18/2024 8:07 AM PICKING MACHINE OPERATOR Coffee ground emesis GLUCOSE - POINT OF CARE Routine 07/18/2024 7:42 AM PICKING MACHINE OPERATOR GLUCOSE - POINT OF CARE Routine 07/18/2024 3:31 AM PICKING MACHINE OPERATOR GLUCOSE - POINT OF CARE Routine 07/17/2024 11:36 PM PICKING MACHINE OPERATOR GLUCOSE - POINT OF CARE Routine 07/17/2024 8:42 PM PICKING MACHINE OPERATOR CARDIAC EKG ORDER 07/17/2024 1:4 4 PM PICKING MACHINE OPERATOR URINE MICROSCOPIC ONLY REFLEX TO CULTURE STAT 07/17/2024 9:58 AM PICKING MACHINE OPERATOR URINALYSIS REFLEX MICROSCOPIC REFLEX CULTURE STAT 07/17/2024 9:58 AM PICKING MACHINE OPERATOR CULTURE URINE STAT 07/17/2024 9:58 AM PICKING MACHINE OPERATOR CBC W AUTO DIFFERENTIAL STAT 07/17/2024 8:31 AM PICKING MACHINE OPERATOR Coffee ground emesis TROPONIN-I HIGH SENSITIVE REFLEX 1HOUR Timed 07/17/2024 12:03 AM PICKING MACHINE OPERATOR CBC W AUTO DIFFERENTIAL STAT 07/17/2024 12:03 AM PICKING MACHINE OPERATOR SARS-COV-2 (COVID-19) FLU A/B RSV PCR RAPID STAT 07/17/2024 12:03 AM PICKING MACHINE OPERATOR CT ABDOMEN PELVIS W CONTRAST STAT 07/16/2024 11:41 PM PICKING MACHINE OPERATOR Nausea and vomiting, unspecified vomiting type Abdominal distention Other constipation CK BLOOD STAT 07/16/2024 10:44 PM PICKING MACHINE OPERATOR TROPONIN-I HIGH SENSITIVE BASELINE + 1HR STAT 07/16/2024 10:44 PM PICKING MACHINE OPERATOR LIPASE BLOOD STAT 07/16/2024 10:44 PM PICKING MACHINE OPERATOR LACTIC ACID BLOOD REFLEX TO REPEAT STAT 07/16/2024 10:44 PM PICKING MACHINE OPERATOR COMPREHENSIVE METABOLIC PANEL STAT 07/16/2024 10:44 PM PICKING MACHINE OPERATOR XR CHEST 1VW PORTABLE STAT 07/16/2024 10:28 PM PICKING MACHINE OPERATOR Nausea and vomiting, unspecified vomiting type CBC W/O DIFFERENTIAL AM Draw 06/09/2024 1:20 AM PICKING MACHINE OPERATOR GLUCOSE - POINT OF CARE Routine 06/08/2024 6:22 PM PICKING MACHINE OPERATOR GLUCOSE - POINT OF CARE Routine 06/08/2024 1:12 PM PICKING MACHINE OPERATOR PHOSPHORUS BLOOD STAT 06/08/2024 4:11 AM PICKING MACHINE OPERATOR MAGNESIUM BLOOD STAT 06/08/2024 4:11 AM PICKING MACHINE OPERATOR LIPID PROFILE STAT 06/08/2024 4:11 AM PICKING MACHINE OPERATOR CBC W/O DIFFERENTIAL STAT 06/08/2024 4:11 AM PICKING MACHINE OPERATOR BASIC METABOLIC PANEL (CALCIUM TOTAL) STAT 06/08/2024 4:11 AM PICKING MACHINE OPERATOR PT-INR [facility] STAT 06/08/2024 4:11 AM PICKING MACHINE OPERATOR URINALYSIS REFLEX MICROSCOPIC REFLEX CULTURE STAT 06/07/2024 10:24 PM PICKING MACHINE OPERATOR LIPASE BLOOD STAT 06/07/2024 8:01 PM PICKING MACHINE OPERATOR COMPREHENSIVE METABOLIC PANEL STAT 06/07/2024 8:01 PM PICKING MACHINE OPERATOR CBC W AUTO DIFFERENTIAL STAT 06/07/2024 8:01 PM PICKING MACHINE OPERATOR HEPATITIS C AB SCREEN RFLX NAAT QUANT [...] Impression: Successful exchange of the existing 18 Barbadian gastrojejunostomy catheter for a new 18 Barbadian gastrojejunostomy catheter under fluoroscopic guidance, as described [...] jelly Procedure: Exchange of the existing 18 Barbadian gastrojejunostomy catheter for a new 18 Barbadian gastrojejunostomy catheter under fluoroscopic guidance. Start time: 1435 End time: 1451 Fluoroscopic time: 4.0 minutes Contrast: 10 mL of Isovue-300 Procedure in detail: The procedure, risks, and possible complications were explained to the patient in detail, and informed consent was obtained. The patient was placed supine on the procedure table. A relocation counselor film of abdomen was obtained, which showed [...] was removed over the wire. A 4 Barbadian Kumpe catheter was advanced over the wire and using this combination, was advanced into the jejunum. The Kumpe catheter was then removed over the wire. A new 18 Barbadian gastrojejunostomy catheter was then advanced over the [...] jelly Procedure: Exchange of the existing 18 Barbadian gastrojejunostomy catheter for a new 18 Barbadian gastrojejunostomy catheter under fluoroscopicguidance. Start time: 1435 End time: 1451 Fluoroscopic time: 4.0 minutes Contrast: 10 mL of Isovue-300 Procedure in detail: The procedure, risks, and possible complications were explained to the patient in detail, and informed consent was obtained. The patient was placed supine on the procedure table. A relocation counselor film of abdomen wasobtained, which showed the [...] was removed over the wire. A 4 Barbadian Kumpe catheter wasadvanced over the wire and using this combination, was advanced into the jejunum. The Kumpe catheter was then removed over the wire. A new 18 Barbadian gastrojejunostomy catheter was then advanced over the guidewire under fluoroscopic guidance. The catheter was secured by balloon insufflation. Hand injection of contrast through the gastric port confirmedintraluminal position within the stomach. Hand injection of contrast through thejejunal port confirmed intraluminal position within the jejunum. Steriledressing was applied. The patient tolerated the procedure well and [facility] condition. There were no immediate complicationsassociated with the procedure. Impression: Successful exchange of the existing 18 Frenchgastrojejunostomy catheter for a new 18 Barbadian gastrojejunostomy catheter underfluoroscopic guidance, as described above. [...] > Dictated by Yessica Lovell MD, MD (rn residential). I, Bebo Kuo MD have personally reviewed and interpreted this examination/study. > Interpreting Provider: Bebo Kuo MD on 08/06/2024 1:31 PM Narrative 08/06/2024 1:31 PM CDT PROCEDURE: CT ABDOMEN WO CONTRAST, DATE/TIME OF EXAM: 08/06/2024 11:01 AM, LOCATION [facility] INDICATION: R11.0: Nausea without vomiting [...] CONTRAST, DATE/TIME OF EXAM: 08/06/2024 11:01AM, LOCATION [facility] INDICATION: R11.0: Nausea without vomiting [...] > Dictated by Yessica Lovell MD, MD (rn residential). I, Bebo Kuo MD have personally reviewed and interpreted this examination/study. > Interpreting Provider: Bebo Kuo MD on 51:31 PM Yary James MD CT ORDERABLES * GLUCOSE - POINT OF CARE (08/06/2024 6:45 AM CDT) Only the most recent of16 resultswithin the time period is included. Glucose WB/POC 92 70 - 99 mg/dL 08/06/2024 6:46 AM CDT [facility] Specimen Type Cap Fingerstick 2024 6:46 AM CDT [facility] Blood BLOOD SPECIMEN / Unknown 08/06/2024 6:45 AM CDT 08/06/2024 6:46 AM CDT Yary James MD LAB - POINT OF CARE ORDERABLES [facility] [address] [place] [phone], [facility] [phone] * XR Abdomen Kub Portable (08/05/2024 6:14 AM CDT) Anatomical Region Laterality Modality Abdomen Digital Radiogra phy 08/05/2024 9:25 AM CDT Impressions 08/05/2024 5:10 PM CDT IMPRESSION: No radiographic evidence of acute intra-abdominal process. Report dictated by Sierra Lyman Dr, MD (rn residential). I, Ramon Ross MD have personally reviewed and interpreted this examination/study. > Interpreting Provider: Ramon Ross MD on 08/05/2024 5:10 PM Narrative 08/05/2024 5:10 PM CDT PROCEDURE: XR ABDOMEN KUB PORTABLE, DATE/TIME OF EXAM: 08/05/2024 6:14 AM, LOCATION [facility] INDICATION: R11.2: Nausea and vomiting, [...] PORTABLE, DATE/TIME OF EXAM: 08/05/2024 6:14AM, LOCATION [facility] INDICATION: R11.2: Nausea and vomiting, [...] Report dictated by Sierra Lyman Dr, MD (rn residential). I, Ramon Ross MD have personally reviewed and interpreted this examination/study. > Interpreting Provider: Ramon Ross MD on 08/05/2024 5:10 PM Neha Palomino MD DIAGNOSTIC IMAGING O RDERABLES * PT-INR [facility] (08/05/2024 1:02 AM PICKING MACHINE OPERATOR) Only the most recent of6 resultswithin the time period is included. Pathologist [facility] PT 13.8 12.1 - 14.8 Seconds 08/05/2024 3:57 AM T [facility] INR 1.1 See Comment 08/05/2024 3:57 AM [facility] Comment:The suggested therap eutic range for standard coumadin (warfarin) therapy is an INR of 2.0-3.0. For high-risk patients (Mechanical Mitral Valve Prosthesis, etc.), the suggested prophylactic therapeutic range is an INR of 2.5-3.5. Blood BLOOD SPECIMEN / Unknown Lab Venipuncture / Unknown 08/05/2024 1:02 AM PICKING MACHINE OPERATOR 08/05/2024 3:37 AM CDT Lowell Cao DO LAB - COAGULATION OR DERABLES [facility] [address] [place] [phone], [facility] [phone] * (ABNORMAL) CBC W/O DIFFERENTIAL (08/05/2024 1:02 AM PICKING MACHINE OPERATOR) Only the most recent of5 resultswithin the time period is included. Pathologist [facility] WBC 6.3 4.0 - 10.7 x10E9/L 08/05/2024 3:57 AM [facility] RBC Count 4.08(L) 4.30 - 5.80 x10E12/L 08/05/2024 3:57 AM [facility] Hemoglobin 12.8(L) 13.3 - 17.5 g/dL 08/05/2024 3:57 AM [facility] Hematocrit 38.5(L) 38.7 - 51.1 % 08/05/2024 3:57 AM [facility] MCV 94.4 80.0 - 98.0 fL 08/05/2024 3:57 AM [facility] MCH 31.4 26.7 - 33.6 pg 08/05/2024 3:57 AM [facility] MCHC 33.2 31.7 - 36.3 g/dL 08/05/2024 3:57 AM [facility] RDW-CV 13.2 11.3 - 14.8 % 08/05/2024 3:57 AM [facility] Platelet Count 187 150 - 420 x10E9/L 08/05/2024 3:57 AM [facility] MPV 13.2(H) 7.8 - 11.4 fL 08/05/2024 3:57 AM [facility] Blood BLOOD SPECIMEN / Unknown Lab Venipuncture / Unknown 08/05/2024 1:02 AM PICKING MACHINE OPERATOR 08/05/2024 3:37 AM [facility] Marianne Daniels MD LAB - HEMATOLOGY ORD ERABLES [facility] [address] [place] [address], [facility] [phone] * (ABNORMAL) RENAL FUNCTION PANEL (08/05/2024 1:02 AM PICKING MACHINE OPERATOR) Only the most recent of3 resultswithin the time period is included. Pathologist [facility] BUN 16 7 - 26 mg/dL 08/05/2024 4:02 AM [facility] Creatinine 0.63(L) 0.71 - 1.16 mg/dL 08/05/2024 4:02 AM [facility] Sodium 140 136 - 145 mmol/L 08/05/2024 4:02 AM [facility] Potassium 4.0 3.5 - 4.5 mmol/L 08/05/2024 4:02 AM [facility] Chloride 107 98 - 107 mmol/L 08/05/2024 4:02 AM [facility] CO2 24 22 - 29 mmol/L 08/05/2024 4:02 AM [facility] Glucose 79 70 - 99 mg/dL 08/05/2024 4:02 AM [facility] Albumin 3.3(L) 3.4 - 5.0 g/dL 08/05/2024 4:02 AM [facility] Calcium 8.9 8.4 - 10.2 mg/dL 08/05/2024 4:02 AM [facility] Phosphorus 3.6 2.8 - 5.1 mg/dL 08/05/2024 4:02 AM [facility] Anion Gap 9 6 - 16 08/05/2024 4:02 AM [facility] BUN/Creatinine Ratio 25(H) 7 - 23 08/05/2024 4:02 AM [facility] Osmolality Calculated 290 275 - 295 mOsm/kg 08/05/2024 4:02 AM [facility] eGFR by CKD-EPI >90 >=90 mL/min/1.7 3 m2 08/05/2024 4:02 AM [facility] Blood BLOOD SPECIMEN / Unknown Lab Venipuncture / Unknown 08/05/2024 1:02 AM PICKING MACHINE OPERATOR 08/05/2024 3:37 AM [facility] Lowell Cao DO LAB - CHEMISTRY MARSHAL Diana Organization Address City/State/ZIP Co de Phone Number [facility] [address] [place] [phone], [facility] [phone] * MAGNESIUM BLOOD (08/05/2024 1:02 AM PICKING MACHINE OPERATOR) Only the most recent of6 resultswithin the time period is included. Magnesium 1.9 1.6 - 2.6 mg/dL 08/05/2024 4:02 AM CDT [facility] Blood BLOOD SPECIMEN / Unknown Lab Venipuncture / Unknown 08/05/2024 1:02 AM PICKING MACHINE OPERATOR 08/05/2024 3:37 AM CDT Lowell Cao DO LAB - CHEMISTRY MARSHAL Diana Organization Address City/[facility]/ZIP Co de Phone Number [facility] [address] [place] [phone], [facility] [phone] * PSA FREE + TOTAL PANEL (08/04/2024 12:12 PM PICKING MACHINE OPERATOR) [facility] PSA Total 1.7 0.0 - 4.0 ng/mL 08/04/2024 1:33 PM [facility] PSA Free 0.21 0.00 - 0.50 ng/mL 08/04/2024 1:33 PM [facility] PSA % Free 12 See Comment % 08/04/2024 1:33 PM [facility] Comment: [facility] Clinical Laboratory uses the [employer]ancia Risk Management Specialist method for Total and Free PSA [...] Free and/or Total PSA alone. Distribution of GROUND SYSTEMS ENGINEER % Free PSA Values for specimens with GROUND SYSTEMS ENGINEER Total PSA values between 4.0 and 10.0 ng/mL: % Free PSA Ranges <10.0 10.0-15.0 15.0-20.0 20.0-26.0 >26.0 Number of ----- --------- --------- --------- ----- Subjects Biopsy --------- ------ Negative 307 9.4 22.5 25.4 24.8 17.9 Positive 123 27.6 30.9 17.9 15.4 8.1 PSA % Free 08/04/2024 1:33 PM PICKING MACHINE OPERATOR [facility] Blood BLOOD SPECIMEN / Unknown Lab Venipuncture / Unknown 08/04/2024 12:12 PM PICKING MACHINE OPERATOR 08/04/2024 12:42 PM PICKING MACHINE OPERATOR Marianne Daniels MD LAB - CHEMISTRY MARSHAL Diana Organization Address City/State/ZIP Co de Phone Number [facility] [address] [place] [phone], [facility] [phone] * (ABNORMAL) CULTURE URINE (08/03/2024 8:53 AM PICKING MACHINE OPERATOR) Only the most recent of2 resultswithin the time period is included. Culture Urine 50,000-100,000 CFU/mL Pseudomonas aeruginosa(A) JELLY 08/07/2024 6:04 AM [facility] Comment:This is an appended report. These results have been appended to a previously final verified report. Culture Urine 50,000-100,000 CFU/mL Corynebacterium striatum(A) JELLY 08/07/2024 6:04 AM [facility] Comment:This is an appended report. These results have been appended to a previously final verified report. Culture Urine 50,000-100,000 CFU/mL Providencia stuartii(A) JELLY 08/07/2024 6:04 AM [facility] Urine URINE SPECIMEN OBTAINED BY CLEAN CATCH PROCEDURE / Unknown Collection / Unknown 08/03/2024 8:53 AM PICKING MACHINE OPERATOR 08/03/2024 8:56 AM PICKING MACHINE OPERATOR Narrative Organism Antibiotic Method Susceptibility Pseudomonas aeruginosa [...] Daniels MD LAB - MICROBIOLOGY O RDERABLES [facility] MICROBIOLOGY [address] [place] [address], [facility] [phone] * HEMOGLOBIN A1C (08/03/2024 5:18 AM PICKING MACHINE OPERATOR) Hemoglobin A1c 5.3 <=5.6 % 08/03/2024 8:24 AM [facility] Estimated Average Glucose 105 mg/dL 08/03/2024 8:24 AM [facility] Comment: HbA1c Interpretation: Normal : < 5.7% Pre-diabetes: 5.7-6.4% Diabetes: Equal to or greater than 6.5% Test results diagnostic of diabetes should be repeated for confirmation. Treatment target values recommended by ADA and other clinical organizations should be used to evaluate metabolic control in patients. Reference: [place] [employer], Standards of Care in Diabetes -2020 In patients 70 years and older consider HbA1c target range of 7.0-7.5% (Reference: Lukas Matamoros et al. JAMDA. 2012) The Sebia assay for the measurement of HbA1c is a National Glycohemoglobin Standardization Program (NGSP) certified method. Blood BLOOD SPECIMEN / Unknown Venipuncture / Unknown 08/03/2024 5:18 AM PICKING MACHINE OPERATOR 08/03/2024 5:24 AM PICKING MACHINE OPERATOR Lowell Cao DO LAB - CHEMISTRY MARSHAL MEDEROS [facility] [address] [place] [address], [facility] [phone] * TYPE + SCREEN PANEL (08/02/2024 9:53 PM PICKING MACHINE OPERATOR) Antibody Screen NEG 10:41 PM PICKING MACHINE OPERATOR [facility] B[facility]OD BANK LAB ABO Rh O POS 08/02/2024 10:41 PM PICKING MACHINE OPERATOR [facility] BLOOD BANK LAB Blood Bank BLOOD SPECIMEN / Unknown Venipuncture / Unknown 08/02/2024 9:53 PM PICKING MACHINE OPERATOR 08/02/2024 10:05 PM PICKING MACHINE OPERATOR Elmo Johnson MD LAB - BLOOD BANK ORD ERABLES [facility] BLOOD BANK LAB [address] [place] [address], [facility] [phone] * CT Chest Abdomen Pelvis W Cont (08/02/2024 9:42 PM PICKING MACHINE OPERATOR) Only the most recent of2 resultswithin the time period is included. Anatomical Region Laterality Modality Chest, Abdomen, Pelvis Computed Tomography 08/02/2024 9:56 PM PICKING MACHINE OPERATOR Impressions 08/02/2024 11:19 PM PICKING MACHINE OPERATOR Impression: 1.Trace left-sided pleural effusion, bilateral dependent [...] cystitis. > Dictated by Justin Burrell MD (rn residential). I, Bebo Kuo MD have personally reviewed and interpreted this examination/study. > Interpreting Provider: Bebo Kuo MD on 08/02/2024 11:19 PM Narrative 08/02/2024 11:19 PM PICKING MACHINE OPERATOR PROCEDURE: CT CHEST ABDOMEN PELVIS W CONT, DATE/TIME OF EXAM: 08/02/2024 9:43 PM, LOCATION [facility] INDICATION: R11.0: Nausea without vomiting [...] DATE/TIME OF EXAM: 08/02/2024 9:43 PM, LOCATION [facility] INDICATION: R11.0: Nausea without vomiting [...] cystitis. > Dictated by Justin Burrell MD (rn residential). I, Bebo Kuo MD have personally reviewed and interpreted this examination/study. > Interpreting Provider: Bebo Kuo MD on 511:19 PM Elmo Johnson MD CT ORDERABLES * XR CHEST 1VW PORTABLE (08/02/2024 5:15 PM PICKING MACHINE OPERATOR) Only the most recent of4 resultswithin the time period is included. Anatomical Region Laterality Modality Chest Digital Radiogra phy 08/02/2024 5:27 PM PICKING MACHINE OPERATOR Narrative 08/03/2024 9:31 AM PICKING MACHINE OPERATOR PROCEDURE: XR CHEST 1VW PORTABLE, DATE/TIME OF EXAM: 08/02/2024 5:15 PM, LOCATION [facility] INDICATION: R11.0: Nausea without vomiting [...] abnormality. > Dictated by Meeta Leblanc MD (rn residential) Ramon Thomason MD have personally reviewed and interpreted this examination/study. > Interpreting Provider: Ramon Ross MD on 08/03/2024 9:31 AM Procedure Note Ramon Ross MD - 08/03/2024 PROCEDURE: XR CHEST 1VW PORTABLE, DATE/TIME OF EXAM: 08/02/2024 5:15 PM, LOCATION [facility] INDICATION: R11.0: Nausea without vomiting [...] osseousabnormality. > Dictated by Meeta Leblanc MD (rn residential) Ramon Thomason MD have personally reviewed and interpreted this examination/study. > Interpreting Provider: Ramon Ross MD on 08/03/2024 9:31 AM Elmo Johnson MD DIAGNOSTIC IMAGING O RDERABLES * (ABNORMAL) URINALYSIS REFLEX TO MICROSCOPIC NO CULTURE (08/02/2024 5:08 PM PICKING MACHINE OPERATOR) Color UA Yellow Yellow, Straw 08/02/2024 5:46 PM PICKING MACHINE OPERATOR [facility] Clarity UA Turbid(A) Clear 08/02/2024 5:46 PM PICKING MACHINE OPERATOR [facility] Glucose UA Normal Normal 08/02/2024 5:46 PM [facility] Bilirubin UA Negative Negative 08/02/2024 5:46 PM [facility] Ketone UA Negative Negative 08/02/2024 5:46 PM [facility] Specific Winside UA 1.015 1.005 - 1.030 08/02/2024 5:46 PM [facility] Blood UA Negative Negative 08/02/2024 5:46 PM [facility] pH UA 7.0 5.0 - 9.0 pH 08/02/2024 5:46 PM [facility] Protein UA Trace(A) Negative 08/02/2024 5:46 PM [facility] Urobilinogen UA 3.0(A) Normal mg/dL 08/02/2024 5:46 PM [facility] Nitrite UA Positive(A) Negative 08/02/2024 5:46 PM [facility] Leukocyte UA 500 NOEL/uL(A) Negative 08/02/2024 5:46 PM [facility] RBC UA 11-20(A) 0 - 5 # /hpf 08/02/2024 5:46 PM [facility] WBC UA >100(A) 0 - 5 # /hpf 08/02/2024 5:46 PM [facility] Bacteria UA 1+(A) None Seen 08/02/2024 5:46 PM [facility] Squamous Epithelial Cells None Seen 0 - 5 /hpf 08/02/2024 5:46 PM [facility] Urine URINE SPECIMEN OBTAINED BY SINGLE CATHETERIZATION OF URINARY BLADDER / Unknown Collection / Unknown 08/02/2024 5:08 PM PICKING MACHINE OPERATOR 08/02/2024 5:11 PM PICKING MACHINE OPERATOR Elmo Johnson MD LAB - URINALYSIS ORD ERABLES [facility] [address] [place] [address], [facility] [phone] * (ABNORMAL) CBC W AUTO DIFFERENTIAL (08/02/2024 5:08 PM PICKING MACHINE OPERATOR) Only the most recent of8 resultswithin the time period is included. WBC 8.4 4.0 - 10.7 x10E9/L 08/02/2024 5:22 PM [facility] RBC Count 4.27(L) 4.30 - 5.80 x10E12/L 08/02/2024 5:22 PM [facility] Hemoglobin 13.6 13.3 - 17.5 g/dL 08/02/2024 5:22 PM [facility] Hematocrit 41.1 38.7 - 51.1 % 08/02/2024 5:22 PM [facility] MCV 96.3 80.0 - 98.0 fL 08/02/2024 5:22 PM [facility] MCH 31.9 26.7 - 33.6 pg 08/02/2024 5:22 PM [facility] MCHC 33.1 31.7 - 36.3 g/dL 08/02/2024 5:22 PM [facility] RDW-CV 13.2 11.3 - 14.8 % 08/02/2024 5:22 PM [facility] Platelet Count 250 150 - 420 x10E9/L 08/02/2024 5:22 PM [facility] MPV 13.0(H) 7.8 - 11.4 fL 08/02/2024 5:22 PM [facility] Neutrophil % 68.1 41.0 - 74.0 % 08/02/2024 5:22 PM [facility] Lymphocyte % 22.2 17.0 - 47.0 % 08/02/2024 5:22 PM [facility] Monocyte % 6.8 3.0 - 11.0 % 08/02/2024 5:22 PM [facility] Eosinophil % 2.3 0.0 - 7.0 % 08/02/2024 5:22 PM [facility] Basophil % 0.4 0.0 - 1.6 % 08/02/2024 5:22 PM [facility] Immature Granulocytes % 0.2 0.0 - 1.0 % 08/02/2024 5:22 PM [facility] Neutrophil Absolute 5.70 1.60 - 7.50 x10E9/L 08/02/2024 5:22 PM [facility] Lymphocyte Absolute 1.86 1.00 - 4.40 x10E9/L 08/02/2024 5:22 PM [facility] Monocyte Absolute 0.57 0.15 - 1.00 x10E9/L 08/02/2024 5:22 PM [facility] Eosinophil Absolute 0.19 0.00 - 0.60 x10E9/L 08/02/2024 5:22 PM [facility] Basophil Absolute 0.03 0.00 - 0.13 x10E9/L 08/02/2024 5:22 PM [facility] Blood BLOOD SPECIMEN / Unknown Venipuncture / Unknown 08/02/2024 5:08 PM PICKING MACHINE OPERATOR 08/02/2024 5:14 PM PICKING MACHINE OPERATOR Elmo Johnson MD LAB - HEMATOLOGY ORD ERABLES [facility] [address] [place] [address], [facility] [phone] * (ABNORMAL) COMPREHENSIVE METABOLIC PANEL (08/02/2024 5:08 PM PICKING MACHINE OPERATOR) Only the most recent of6 resultswithin the time period is included. BUN 14 7 - 26 mg/dL 08/02/2024 5:44 PM [facility] Creatinine 0.57(L) 0.71 - 1.16 mg/dL 08/02/2024 5:44 PM [facility] Sodium 140 136 - 145 mmol/L 08/02/2024 5:44 PM [facility] Potassium 4.5 3.5 - 4.5 mmol/L 08/02/2024 5:44 PM [facility] Chloride 105 98 - 107 mmol/L 08/02/2024 5:44 PM [facility] CO2 25 22 - 29 mmol/L 08/02/2024 5:44 PM [facility] Glucose 102(H) 70 - 99 mg/dL 08/02/2024 5:44 PM [facility] Calcium 9.6 8.4 - 10.2 mg/dL 08/02/2024 5:44 PM [facility] Protein Total 7.6 6.0 - 8.3 g/dL 08/02/2024 5:44 PM [facility] Albumin 3.8 3.4 - 5.0 g/dL 08/02/2024 5:44 PM [facility] Bilirubin Total 0.4 0.2 - 1.2 mg/dL 08/02/2024 5:44 PM [facility] Alkaline Phosphatase 94 40 - 150 U/L 08/02/2024 5:44 PM [facility] ALT 14 5 - 55 U/L 08/02/2024 5:44 PM [facility] AST 25 5 - 34 U/L 08/02/2024 5:44 PM [facility] Anion Gap 10 6 - 16 08/02/2024 5:44 PM [facility] BUN/Creatinine Ratio 25(H) 7 - 23 08/02/2024 5:44 PM [facility] Osmolality Calculated 291 275 - 295 mOsm/kg 08/02/2024 5:44 PM [facility] Albumin/Globulin Ratio 1.0(L) 1.1 - 2.3 08/02/2024 5:44 PM [facility] eGFR by CKD-EPI >90 >=90 mL/min/1.7 3 m2 08/02/2024 5:44 PM [facility] Blood BLOOD SPECIMEN / Unknown Venipuncture / Unknown 08/02/2024 5:08 PM PICKING MACHINE OPERATOR 08/02/2024 5:14 PM [facility] Elmo Johnson MD LAB - CHEMISTRY MARSHAL [facility] Organization Address City/State/ZIP Co de Phone Number [facility] [address] [place] [address], [facility] [phone] * LIPASE BLOOD (08/02/2024 5:08 PM PICKING MACHINE OPERATOR) Only the most recent of5 resultswithin the time period is included. Lipase 18 8 - 78 U/L 08/02/2024 5:44 PM [facility] Blood BLOOD SPECIMEN / Unknown Venipuncture / Unknown 08/02/2024 5:08 PM PICKING MACHINE OPERATOR 08/02/2024 5:14 PM PICKING MACHINE OPERATOR Narrative [facility] - 08/02/2024 5:44 PM PICKING MACHINE OPERATOR Lipase results from the [employer]ancia Alinity analyzer may not be comparable with other methodologies. Elmo Johnson MD LAB - CHEMISTRY MARSHAL JOSE ALBERTOSHILPA Performing Organization Address [facility] Co de Phone Number [address] [address], [facility] [phone] * TROPONIN-I HIGH SENSITIVE BASELINE + 1HR (07/27/2024 6:26 PM PICKING MACHINE OPERATOR) Only the most recent of2 resultswithin the time period is included. [facility] Troponin I High Sensitive 5 <=35 ng/L 07/27/2024 7:09 PM PICKING MACHINE OPERATOR [facility] Blood BLOOD SPECIMEN / Unknown Venipuncture / Unknown 07/27/2024 6:26 PM PICKING MACHINE OPERATOR 07/27/2024 6:37 PM PICKING MACHINE OPERATOR Serjio Vilchis MD LAB - CHEMISTRY MARSHAL MEDEROS Performing Organization Address [facility] Co de Phone Number [address] [address], [facility] [phone] * EKG 12-LEAD (07/27/2024 5:34 PM PICKING MACHINE OPERATOR) [facility] Ventricular Rate 84 BPM [facility] MUSE Atrial Rate 84 BPM [facility] MUSE P-R Interval 160 ms [facility] MUSE QRS Duration ms 76 ms [facility] Q-T Interval ms 364 ms [facility] MUSE QTC Calculation (Bezet) 430 ms [facility] MUSE Calculated P [place] 49 degrees SL MUSE Calculated R [place] -25 degrees SL MUSE Calculated T [place] 56 degrees [facility] MUSE Interpretation EKG NORMAL SINUS RHYTHM SEPTAL INFARCT , AGE UNDETERMINED INFERIOR INFARCT , AGE UNDETERMINED ABNORMAL ECG WHEN COMPARED WITH ECG OF 19-FEB-2024 17:27, SEPTAL INFARCT IS NOW PRESENT INFERIOR INFARCT IS NOW PRESENT Confirmed by MD ABENA, CLEMENTE ([id number]) on 07/30/2024 2:44:30 PM [facility] MUSE 07/27/2024 5:34 PM PICKING MACHINE OPERATOR 07/30/2024 2:44 PM PICKING MACHINE OPERATOR Serjio Vilchis MD ECG ORDERABLES [facility] MUSE * PATHOLOGY TISSUE (07/18/2024 4:27 PM [facility]) Case Report Surgical Pathology Report Case: [id number] Authorizing Provider: Clifton Trinh, Collected: 07/18/2024 04:27 PM Ordering Location: [facility] ENDOSCOPY Received: 07/19/2024 10:00 AM Pathologist: Mara Pascual MD Specimen: Gastric, Gastric Antrum Biopsies 07/20/2024 3:51 PM [facility]OLOGY LAB Final Diagnosis Stomach, antrum, biopsy (A): - Superficial erosion in a background of reactive gastropathy, SEE COMMENT 07/20/2024 3:51 PM [facility] LAB Microscopic Description and [...] true H. pylori infection. 07/20/2024 3:51 PM [facility] PATH[facility]Y LAB Clinical History The patient is a 64-year-old man with suspected upper gastrointestinal bleeding and melena. Operative procedure/findings: EGD - small esophageal diverticulum; benign-appearing intrinsic stenosis at the proximal and distal esophagus, dilated; broad irregular area of mucosa along the lesser curvature with superficial erosion, biopsied 07/20/2024 3:51 PM [facility] LAB Gross Description The requisition and specimen(s) are identified with the patient's name, Bi Tabor. Received in formalin, specimen A , are four marie-pink tissue fragments, 0.1-0.3 cm, 0.4 x 0.3 x 0.1 cm in aggregate , submitted in toto in cassette A1. The two smallest fragments are friable and may not survive processing. IKD 07/20/2024 3:51 PM [facility] LAB Pathologist Location at [facility] 07/20/2024 3:51 PM [facility] Disclaimer The performance characteristics of all immunohistochemical and indirect immunofluorescence stains (if any) cited in this report were determined by the Histopathology Laboratory of [facility]. Some of these tests were developed by [...] the attending (teaching) pathologist. 07/20/2024 3:51 PM [facility] LAB Embedded Images 07/20/2024 3:51 PM [facility] Biopsy, NOS GASTRIC CONTENTS SPECIMEN / Unknown 07/18/2024 4:27 PM PICKING MACHINE OPERATOR 07/19/2024 10:00 AM PICKING MACHINE OPERATOR Comment:Pre-op diagnosis: Coffee ground emesis [K92.0] Clifton Alejandra MD LAB - PATHOL OGY/CYTOLOGY ORDERABLES [facility]OLOGY LAB [address] [phone] * EGD (07/18/2024 3:52 PM PICKING MACHINE OPERATOR) Report Endoscopy POC Endoscopy Department Report __ [...] entire procedure. Procedure Code(s): --- Professional --- 72466, Esophagogastroduode noscopy, flexible, transoral; with biopsy, single or multiple Diagnosis Code(s): --- Professional --- K31.89, Other diseases of stomach and duodenum K92.1, Melena (includes Hematochezia) CPT copyright 2021 [place]. All rights reserved. The codes documented in this report are preliminary and upon rpg programmer review may be revised to meet current compliance requirements. Clifton Alejandra MD 07/18/2024 4:45:03 PM Note Initiated On: 07/18/2024 3:52 PM Number of Addenda: 0 [facility] [address] [place] [id number] [place] [address] PROVATION 07/18/2024 3:52 PM PICKING MACHINE OPERATOR Aaron Delgado III, MD GI PROCEDURE OR DERABLES [facility] PROVATION * PHOSPHORUS BLOOD (07/18/2024 8:07 AM PICKING MACHINE OPERATOR) Only the most recent of2 resultswithin the time period is included. Phosphorus 4.2 2.8 - 5.1 mg/dL 07/18/2024 8:52 AM [facility] Blood BLOOD SPECIMEN / Unknown Lab Venipuncture / Unknown 07/18/2024 8:07 AM PICKING MACHINE OPERATOR 07/18/2024 8:24 AM PICKING MACHINE OPERATOR Marianne Daniels MD LAB - CHEMISTRY MARSHAL MEDEROS [facility] [address] [place] [address], [facility] [phone] * VALPROIC ACID LEVEL (07/18/2024 8:07 AM PICKING MACHINE OPERATOR) Pathologist [facility] Valproic Acid Total 74 50 - 100 ug/mL 07/18/2024 8:41 AM PICKING MACHINE OPERATOR [facility] Blood BLOOD SPECIMEN / Unknown Lab Venipuncture / Unknown 07/18/2024 8:07 AM PICKING MACHINE OPERATOR 07/18/2024 8:19 AM PICKING MACHINE OPERATOR Marianne Daniels MD LAB - CHEMISTRY MARSHAL MEDEROS Performing Organization Address City/[facility]/ZIP Co de Phone Number [address] [address], [facility] [phone] * CARDIAC EKG ORDER (07/17/2024 1:44 PM PICKING MACHINE OPERATOR) Narrative 07/17/2024 1:44 PM PICKING MACHINE OPERATOR Ordered by an unspecified provider. Scanned Document CARDIAC SERVICES ORD ERABLES * (ABNORMAL) URINE MICROSCOPIC ONLY REFLEX TO CULTURE (07/17/2024 9:58 AM PICKING MACHINE OPERATOR) Pathologist [facility] Reflex Status Culture to follow 07/17/2024 10:42 AM [facility] WBC UA 21-50(A) None Seen, 0-5 /HPF 07/17/2024 10:42 AM [facility] Bacteria UA 1+(A) None /HPF 07/17/2024 10:42 AM [facility] Squamous Epithelial Cells UA None Seen None Seen, 0-2, 3-5 /HPF 07/17/2024 10:42 AM [facility] Urine URINE SPECIMEN OBTAINED BY CLEAN CATCH PROCEDURE / Unknown Collection / Unknown 07/17/2024 9:58 AM PICKING MACHINE OPERATOR 07/17/2024 10:02 AM [facility] - 07/17/2024 10:42 AM PICKING MACHINE OPERATOR Quan Gan MD LAB - URINALYSIS ORD ERABLES [address] [address], [facility] [phone] * (ABNORMAL) URINALYSIS REFLEX MICROSCOPIC REFLEX CULTURE (07/17/2024 9:58 AM PICKING MACHINE OPERATOR) Only the most recent of2 resultswithin the time period is included. Color UA Yellow Straw, Yellow 07/17/2024 10:36 AM [facility] Clarity UA Slt Cloudy(A) Clear 07/17/2024 10:36 AM [facility] Specific Winside UA 1.027 1.005 - 1.030 07/17/2024 10:36 AM [facility] pH UA 8.0 5.0 - 8.0 pH 07/17/2024 10:36 AM [facility] Protein UA 1+(A) Negative 07/17/2024 10:36 AM [facility] Glucose UA Negative Negative 07/17/2024 10:36 AM [facility] Ketone UA Negative Negative 07/17/2024 10:36 AM [facility] Bilirubin UA Negative Negative 07/17/2024 10:36 AM [facility] Blood UA Negative Negative 07/17/2024 10:36 AM [facility] Nitrite UA Positive(A) Negative 07/17/2024 10:36 AM [facility] Leukocyte Esterase 1+(A) Negative 07/17/2024 10:36 AM [facility] Urobilinogen UA 4.0(A) Negative mg/dL 07/17/2024 10:36 AM [facility] Urine URINE SPECIMEN OBTAINED BY CLEAN CATCH PROCEDURE / Unknown Collection / Unknown 07/17/2024 9:58 AM PICKING MACHINE OPERATOR 07/17/2024 10:02 AM PICKING MACHINE OPERATOR Narrative [facility] - 07/17/2024 10:36 AM PICKING MACHINE OPERATOR Quan Gan MD LAB - URINALYSIS ORD ERABLES [facility] [address] [place] [address], [facility] [phone] * TROPONIN-I HIGH SENSITIVE REFLEX 1HOUR (07/17/2024 12:03 AM PICKING MACHINE OPERATOR) Pathologist [facility] Troponin I High Sensitive 7 <=35 ng/L 07/17/2024 12:48 AM PICKING MACHINE OPERATOR [facility] Delta Troponin I HS 0 <6 ng/L 07/17/2024 12:48 AM [facility] Blood BLOOD SPECIMEN / Unknown Venipuncture / Unknown 07/17/2024 12:03 AM PICKING MACHINE OPERATOR 07/17/2024 12:11 AM PICKING MACHINE OPERATOR Quan Gan MD LAB - CHEMISTRY ORDE RABLES [facility] [address] [place] [address], [facility] [phone] * SARS-COV-2 (COVID-19) FLU A/B RSV PCR RAPID (07/17/2024 12:03 AM PICKING MACHINE OPERATOR) Pathologist [facility] COVID-19 PCR Not detected Not detected 07/17/19 12:51 AM [facility] Influenza A PCR Not detected Not detected 07/17/2024 12:51 AM [facility] Influenza B PCR Not detected Not detected 07/17/2024 12:51 AM [facility] RSV PCR Not detected Not detected 07/17/2024 12:51 AM [facility] Microbiology SPECIMEN FROM NASOPHARYNGEAL STRUCTURE / Unknown Collection / Unknown 07/17/2024 12:03 AM PICKING MACHINE OPERATOR 07/17/2024 12:11 AM PICKING MACHINE OPERATOR Narrative [facility] - 07/17/2024 12:51 AM PICKING MACHINE OPERATOR This nucleic acid amplification assay has been [...] Gan MD LAB - MICROBIOLOGY O RDERABLES [facility] [address] [place] [address], [facility] [phone] * CT Abdomen Pelvis W Contrast (07/16/2024 11:41 PM PICKING MACHINE OPERATOR) Anatomical Region Laterality Modality Abdomen, Pelvis Computed Tomogra phy 07/17/2024 12:0 2 AM PICKING MACHINE OPERATOR Impressions 07/17/2024 8:29 AM PICKING MACHINE OPERATOR Impression: 1.No acute process identified in the [...] obstruction. > Dictated by Ashu Welch MD (rn residential). I, Bebo Kuo MD have personally reviewed and interpreted this examination/study. > Interpreting Provider: Bebo Kuo MD on 07/17/2024 8:29 AM Narrative 07/17/2024 8:29 AM PICKING MACHINE OPERATOR PROCEDURE: CT ABDOMEN PELVIS W CONTRAST, DATE/TIME OF EXAM: 07/16/2024 11:42 PM, LOCATION [facility] INDICATION: R11.2: Nausea and vomiting, [...] DATE/TIME OF EXAM: 07/16/2024 11:42 PM, LOCATION [facility] INDICATION: R11.2: Nausea and vomiting, [...] obstruction. > Dictated by Ashu Welch MD (rn residential). I, Bebo Kuo MD have personally reviewed and interpreted this examination/study. > Interpreting Provider: Bebo Kuo MD on 58:29 AM Quan Gan MD CT ORDERABLES * LACTIC ACID BLOOD REFLEX TO REPEAT (07/16/2024 10:44 PM PICKING MACHINE OPERATOR) Lactic Acid-Stat 1.9 <=2.0 mmol/L 07/16/2024 11:19 PM PICKING MACHINE OPERATOR [facility] Blood BLOOD SPECIMEN / Unknown Venipuncture / Unknown 07/16/2024 10:44 PM PICKING MACHINE OPERATOR 07/16/2024 10:52 PM PICKING MACHINE OPERATOR Quan Gan MD LAB - CHEMISTRY MARSHAL MEDEROS [facility] Organization Address City/State/[facility] Co de Phone Number [address] [address], [facility] [phone] * CK BLOOD (07/16/2024 10:44 PM PICKING MACHINE OPERATOR) CK Total 92 30 - 200 U/L 07/16/2024 11:23 PM PICKING MACHINE OPERATOR [facility] Blood BLOOD SPECIMEN / Unknown Venipuncture / Unknown 07/16/2024 10:44 PM PICKING MACHINE OPERATOR 07/16/2024 10:52 PM PICKING MACHINE OPERATOR Quan Gan MD LAB - CHEMISTRY ORDE RABLES [facility] [address] [place] [address], [facility] [phone] * (ABNORMAL) BASIC METABOLIC PANEL (CALCIUM TOTAL) (06/08/2024 4:11 AM [facility]) BUN 14 7 - 26 mg/dL 06/08/2024 [...] Unknown Venipuncture / Unknown 06/08/2024 4:11 AM PICKING MACHINE OPERATOR 06/08/2024 4:18 AM [facility] Lilliam Isaacs [employer] MINER LAB - CHEMISTRY ORDERABLES [facility] [address] [place] [address] [phone] * (ABNORMAL) LIPID PROFILE (06/08/2024 4:11 AM PICKING MACHINE OPERATOR) Cholesterol Total 136 <200 mg/dL 06/08/2024 4:49 [...] Unknown Venipuncture / Unknown 06/08/2024 4:11 AM PICKING MACHINE OPERATOR 06/08/2024 4:18 AM [facility] Lilliam Isaacs [employer] LAB - CHEMISTRY ORDERABLES [facility] [address] [place] [id number], [facility] [phone] * HEPATITIS C AB SCREEN RFLX NAAT QUANT (09/01/2022 2:05 AM CDT) Hepatitis C Antibody Non-react phan Non-reac tive 09/01/2022 3:09 AM CDT [facility] Comment:Hepatitis C Antibody screen indicates no [...] - CHEMISTRY MARSHAL MEDEROS Performing Organization Address City/[facility]/ZIP Co de Phone Number [facility] [address] [place] [address] [phone], [place] [phone] * HIV-1 HIV-2 ANTIBODY + HIV P24 [...] CHEMISTRY MARSHAL MEDEROS Performing Organization Address [facility] Co de Phone Number [address] [address], [place] [phone] from Last 3 Months or Most Recently Relevant to Health Maintenance Additional Health Concerns Infection Onset Date Last 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 Source: [facility]. 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 John Seipel Infection Prevention 09/18/2022 MRSA 06/11/2023 06/11/2023 Advance Directives Documents on File Type Date Recorded Patient Child Care Director Expl anation Adv Directive/Living Will/POA 07/19/2019 4:10 [...] 10:09 PM 09/09/2023 7:47 PM Care Teams Graduate Intern Relationship Specialty Start Date End Date Dany Monsivais MD [address] [phone] PCP - General Family Medicine 11/18/23 Elizabeth Sullivan, RN Circuit Tester 10/14/17
--- OUTSIDE RECORDS SUMMARY | 2024-08-22 02:17 | XMS_ITS | Encounter Summary ---
Author Organization [facility] Address [address] [place] [address] Care Team Providers Care Cartridge Maker Name Role Phone Frank Toure MD Unavailable Joyce Luevano NP Primary Care Provider Unavaila Marielena Adame MD Primary Care Provider [phone] Encounter Details Date Type Department Care Team (Late st Contact Info) Description 03/08/2022 GridMarketst Message Enc [facility] Family Medicine - [address] [address] Joyce Luevano, BOUCHRA Vascular doctor [...] on filedocumented in this encounter Care Teams Cartridge Maker Relationship Specialty Start Date End Date Joyce Luevano NP [address] [place] [address] PCP - General NURSE PRACTITIONER 01/14/20 10/26/23 Marielena Smallwood MD [address] [place] [address] PCP - General FAMILY PRACTICE 10/27/23 Frank Toure MD [address] [place] [address] [employer] Optical Store Manager CARDIOVASCULAR DISEASE 05/30/16 documented as of this encounter
--- OUTSIDE RECORDS SUMMARY | 2024-08-22 02:17 | XMS_ITS | Encounter Summary ---
Author Organization [facility] - [facility] Address [address] [place] [address] Care Team Providers Care Quality Control Tech Name Role Phone Frank Toure MD Unavailable Joyce Luevano NP Primary Care Provider Unavaila Marielena Adame MD Primary Care Provider [phone] Encounter Details Date Type Department Care Team (Late st Contact Info) Description 02/23/2022 MyChart Message Enc [facility] Family Medicine - [address] [address] Joyce Luevano, BOUCHRA Bi updated [...] 10:33 AM CDT These updated through the [employer] system. documented in this encounter Plan of Treatment Not on file documented as of this encounter Visit Diagnoses Not on filedocumented in this encounter Care Teams Quality Control Tech Relationship Specialty Start Date End Date Joyce Luevano NP [address] [place] [address] PCP - General NURSE PRACTITIONER 01/14/20 10/26/23 Marielena Smallwood MD [address] [place] [address] PCP - General FAMILY PRACTICE 10/27/23 Frank Toure MD [address] [place] [address] [employer] Mine Technician CARDIOVASCULAR DISEASE 05/30/16 documented as of this encounter
--- OUTSIDE RECORDS SUMMARY | 2024-08-22 02:17 | XMS_ITS | Encounter Summary ---
Author Organization [facility] - [facility] Address [address] [place] [address] Care Team Providers Care X Ray Developing Machine Operator Name Role Phone Frank Toure MD Unavailable Joyce Luevano NP Primary Care Provider Unavaila Marielena Adame MD Primary Care Provider [phone] Encounter Details Date Type Department Care Team (Late st Contact Info) Description 07/06/2022 MyCFishNet Securityt Message Enc [facility] Family Medicine - [address] [address] Joyce Luevano, CERTIFIED OPHTHALMIC ASSISTANT Bi Tabor Social History Tobacco Use Types [...] Coronavirus/COVID-19? No / Unsure 06/17/2022 10:38 AM JDE DEVELOPER documented as of this encounter Functional Status [...] 1:34 PM CST Please see note. Thanks DEVELOPER * Yonatan Rodriguez RN - 07/07/2022 8:09 AM CST Please see note. Thanks DEVELOPER documented in this encounter Plan of Treatment Not on file documented as of this encounter Visit Diagnoses Not on filedocumented in this encounter Care Teams X Ray Developing Machine Operator Relationship Specialty Start Date End Date Joyce Luevano NP [address] [place] [address] PCP - General NURSE PRACTITIONER 01/14/20 10/26/23 Marielena Smallwood MD [address] [place] [address] PCP - General FAMILY PRACTICE 10/27/23 [place] [address] [place] [address] [employer] Outdoor Adventure Guides CARDIOVASCULAR DISEASE 05/30/16 documented as of this encounter
--- OUTSIDE RECORDS SUMMARY | 2024-08-22 02:18 | XMS_ITS | Encounter Summary ---
Author Organization [facility] - [facility] Address [address] [place] [address] Care Team Providers Care Plastic Surgery Technician Name Role Phone Frank Toure MD Unavailable Joyce Luevano NP Primary Care Provider Unavaila Marielena Adame MD Primary Care Provider [phone] Encounter Details Date Type Department Care Team (Late st Contact Info) Description 05/11/2022 virocytt Message Enc [facility] Family Medicine - [address] [address] Joyce Luevano, BOUCHRA Pat appointment [...] on filedocumented in this encounter Care Teams Plastic Surgery Technician Relationship Specialty Start Date End Date Joyce Luevano NP [address] [place] [address] PCP - General NURSE PRACTITIONER 01/14/20 10/26/23 Marielena Smallwood MD [address] [place] [address] PCP - General FAMILY PRACTICE 10/27/23 Frank Toure MD [address] [place] [address] [place] Device Repair Technician CARDIOVASCULAR DISEASE 05/30/16 documented as of this encounter
--- OUTSIDE RECORDS SUMMARY | 2024-08-22 02:18 | XMS_ITS | Encounter Summary ---
Author Organization [facility] - [facility] Address [address] [place] [address] Care Team Providers Care Wind Plant Manager Name Role Phone Frank Toure MD Unavailable Joyce Luevano NP Primary Care Provider Unavaila Marielena Adame MD Primary Care Provider [phone] Encounter Details Date Type Department Care Team (Late st Contact Info) Description 03/13/2022 Imperatort Message Enc [facility] Family Medicine - [address] [address] Joyce Luevano, DETASSELER Bi Tabor Update Social History Tobacco Use [...] on filedocumented in this encounter Care Teams Wind Plant Manager Relationship Specialty Start Date End Date Joyce Luevano NP [address] [place] [address] PCP - General NURSE PRACTITIONER 01/14/20 10/26/23 Marielena Smallwood MD [address] [place] [address] PCP - General FAMILY PRACTICE 10/27/23 Frank Toure MD [address] [place] [address] [employer] Compliance Engineer CARDIOVASCULAR DISEASE 05/30/16 documented as of this encounter
--- OUTSIDE RECORDS SUMMARY | 2024-08-22 02:18 | XMS_ITS | Encounter Summary ---
Author Organization [facility] - [facility] Address [address] [place] [address] Care Team Providers Care Industrial Maintenance Technician Name Role Phone Frank Toure MD Unavailable Joyce Luevano NP Primary Care Provider Unavaila Marielena Adame MD Primary Care Provider [phone] Encounter Details Date Type Department Care Team (Late st Contact Info) Description 03/09/2022 Modifyt Message Enc [facility] Family Medicine - [address] [address] Joyce Luevano, CUPOLA MELTER Update on Bi Tabor Social History Tobacco [...] filedocumented in this encounter Care Teams Industrial Maintenance Technician Relationship Specialty Start Date End Date Joyce Luevano NP [address] [place] [address] PCP - General NURSE PRACTITIONER 01/14/20 10/26/23 Marielena Smallwood MD [address] [place] [address] PCP - General FAMILY PRACTICE 10/27/23 Frank Toure MD [address] [place] [address] [employer] Tow Feeder CARDIOVASCULAR DISEASE 05/30/16 documented as of this encounter
--- OUTSIDE RECORDS SUMMARY | 2024-08-22 02:18 | XMS_ITS | Encounter Summary ---
Author Organization [facility] - [facility] Address [address] [place] [address] Care Team Providers Care Getterer Name Role Phone Frank Toure MD Unavailable Joyce Luevano NP Primary Care Provider Unavaila Marielena Adame MD Primary Care Provider [phone] Encounter Details Date Type Department Care Team (Late st Contact Info) Description 03/15/2022 TapFundert Message Enc [facility] Family Medicine - [address] [address] Joyce Luevano, BIOFUELS TECHNOLOGY MANAGER Bi Tabor Social History Tobacco Use [...] on filedocumented in this encounter Care Teams Getterer Relationship Specialty Start Date End Date Joyce Luevano NP [address] [place] [address] PCP - General NURSE PRACTITIONER 01/14/20 10/26/23 Marielena Smallwood MD [address] [place] [address] PCP - General FAMILY PRACTICE 10/27/23 Frank Toure MD [address] [place] [address] [employer] Size Roller Operator CARDIOVASCULAR DISEASE 05/30/16 documented as of this encounter
--- NOTE | 2024-08-22 02:24 | ED.GENADULT ---
HPI - General Adult General Chief complaint: Unspecified Stated complaint: trach dislodged Time Seen by Provider: 08/22/24 01:48 Source: patient and RN notes reviewed Mode of arrival: EMS Limitations: physical limitation History of Present Illness HPI narrative: Bed-bound patient trach presents after trach was dislodged. Patient is 1 the emergency department for similar episodes. Staff at facility was unable to replace trach as was EMS personnel. RT replaced trach prior to my assessment of patient after obtaining equipment from central supply. There was initial confusion about patient's trach size. Patient has no complaints other than mouthing I'm cold. Requesting a warm blanket. Denies any shortness of breath. Nods his head yes when asked if he feels his breathing is better than it was 2 nights ago when he presented for similar. Related Data Home Medications ?Medication ?Instructions ?Recorded ?Confirmed ?Last Taken ?Type metoprolol tartrate 25 mg tablet 25 mg feeding tube BID 12/18/22 03/30/24 Unknown History polyethylene glycol 3350 17 17 g feeding tube DAILY PRN 12/18/22 03/30/24 Unknown History gram/dose oral powder Constipation bisacodyl 10 mg rectal suppository 10 mg RECTAL DAILY PRN Constipation 02/11/23 03/30/24 Unknown History sennosides 8.6 mg tablet (senna) 8.6 mg feeding tube BID 02/11/23 03/30/24 Unknown History guaifenesin 100 mg/5 mL oral liquid 300 mg feeding tube BID PRN Cough 07/08/23 03/30/24 Unknown History magnesium hydroxide 400 mg/5 mL 30 ml PO HS PRN Constipation 12/13/23 03/30/24 Unknown History oral suspension (Milk of Magnesia) artificial tears solution eye drops 1 drp ophthalmic (eye) PRN PRN Dry 02/10/24 03/30/24 Unknown History Eye(S) atorvastatin 40 mg tablet 40 mg PO HS 02/10/24 03/30/24 Unknown History calcium carbonate 500 mg/5 mL (as 1,250 mg PO Q6H PRN Heartburn 02/10/24 03/30/24 Unknown History calcium carb 1,250 mg/5 mL) oral suspension clobazam 10 mg tablet 10 mg feeding tube DAILY 02/10/24 03/30/24 Unknown History famotidine 20 mg tablet 20 mg feeding tube BID 02/10/24 03/30/24 Unknown History folic acid 1 mg tablet 1 mg feeding tube DAILY 02/10/24 03/30/24 Unknown History ipratropium 0.5 mg-albuterol 3 mg 3 ml inhalation Q6H PRN Shortness 02/10/24 03/30/24 Unknown History (2.5 mg base)/3 mL nebulization Of Breath soln lacosamide 10 mg/mL oral solution 200 mg feeding tube BID 02/10/24 03/30/24 Unknown History levetiracetam 100 mg/mL oral 1,500 mg feeding tube BID 02/10/24 03/30/24 Unknown History solution magnesium citrate (Citroma oral 296 ml PO DAILY PRN Constipation 02/10/24 03/30/24 Unknown History solution) thiamine HCl (vitamin B1) 100 mg 100 mg feeding tube DAILY 02/10/24 03/30/24 Unknown History tablet valproic acid (as sodium salt) 250 1,250 mg feeding tube QID 02/10/24 03/30/24 Unknown History mg/5 mL oral solution acetaminophen 650 mg/20.3 mL oral 650 mg feeding tube Q4H PRN Pain 03/30/24 03/30/24 Unknown History suspension (Scale Score 1-3) apixaban 5 mg tablet (Eliquis) 5 mg feeding tube BID 03/30/24 03/30/24 Unknown History aspirin 81 mg chewable tablet 81 mg feeding tube DAILY 03/30/24 03/30/24 Unknown History Allergies Allergy/AdvReac Type Severity Reaction Status Date / Time clonazepam Allergy Unknown Unknown Verified 08/20/24 06:49 [facility] Past Medical History Medical History Deep venous thrombosis of upper extremity Benign prostatic hyperplasia Cerebrovascular accident Residual expressive aphasia, dysphagia, and left-sided weakness. Chronic obstructive pulmonary disease Esophageal diverticulum Gastroparesis Iron deficiency anemia Vascular dementia with psychotic disturbance Seizure disorder Surgical History Surgical History History of gastrostomy tube placement History of tracheostomy History of left above knee amputation Family History Family History Other Unknown family medical history Social History Social History Social History: Surrogate medical decision maker: Adriane Hilliard, sibling. Code status: Full code. 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 HEAD: Normocephalic, atraumatic. EYES: Non injected, non icteric ENT: Nares clear, no rhinorrhea or epistaxis. NECK: Supple. Tracheostomy in place CHEST: No respiratory distress. Not tachypneic. Coarse bilateral breath sounds though possible component upper airway sounds transmissible, improved from when seen 2 nights ago. HEART: Regular rate and rhythm. . ABDOMEN: Soft, nondistended. EXTREMITIES: No lower extremity edema in right leg. Left AKA. SKIN: Warm, dry, no rash. NEURO: Alert and oriented. Answering simple questions by mouthing yes and no. Follows commands. PSYCH: Normal mood and affect. Course Vital Signs Vital signs: Vital Signs Temperature 97.8 F 08/22/24 01:00 Pulse Rate 67 08/22/24 01:00 Respiratory Rate 13 08/22/24 01:00 Blood Pressure 143/82 H 08/22/24 01:00 Pulse Oximetry 95 08/22/24 01:00 Oxygen Delivery Room Air 08/22/24 01:00 Temperature 97.8 F 08/22/24 01:00 Pulse Rate 68 08/22/24 02:50 Respiratory Rate 18 08/22/24 02:50 Blood Pressure 136/71 08/22/24 02:50 Pulse Oximetry 96 08/22/24 03:00 Oxygen Delivery High Flow Therapy with Trach Collar 08/22/24 03:00 Oxygen Flow Rate 30 08/22/24 03:00 Fraction of Inspired Oxygen 21 08/22/24 03:00 Medical Decision Making MDM Narrative Medical decision making narrative: 64-year-old male bed-bound presents after trach dislodged and unable to be replaced at facility or by EMS. In the emergency department he is afebrile with acceptable vital signs. Not hypoxic. branch logistics supervisor, house carpenter, and 2 RTs worked together to identify patient's trach size. RT replaced trach with a Shiley [id number] (6.5mm ID, 9.4mm OD, 20.6mm), easily. Patient resting comfortably at the time of my assessment. His oxygen saturation remains appropriate. Patient had been pain 2 nights with similar although at that time had increased secretions. There had been consideration of atelectasis versus pneumonia based on chest x-ray at that time and patient had been prescribed and given 1st dose of antibiotics. It appears this is improving. Patient has no complaints related to respiratory concerns. Patient stable for discharge back to facility. Requires EMS transportation back.. Vital Signs Vital Signs: Vital Signs Temperature 97.8 F 08/22/24 01:00 Pulse Rate 67 08/22/24 01:00 Respiratory Rate 13 08/22/24 01:00 Blood Pressure 143/82 H 08/22/24 01:00 Pulse Oximetry 95 08/22/24 01:00 Oxygen Delivery Room Air 08/22/24 01:00 Temperature 97.8 F 08/22/24 01:00 Pulse Rate 68 08/22/24 02:50 Respiratory Rate 18 08/22/24 02:50 Blood Pressure 136/71 08/22/24 02:50 Pulse Oximetry 96 08/22/24 03:00 Oxygen Delivery High Flow Therapy with Trach Collar 08/22/24 03:00 Oxygen Flow Rate 30 08/22/24 03:00 Fraction of Inspired Oxygen 21 08/22/24 03:00 Imaging Data Attestation: I personally reviewed and interpreted this imaging study as follows: My impression: Tracheostomy in good position. Otherwise no acute process; cardiomegaly on my independent interpretation. Discharge Plan Discharge Clinical Impression: Encounter for tracheostomy tube change Patient Disposition: NH Senior Care/Asst Living Condition: Stable Instructions: Antibiotic Form, Tracheostomy Care (ED) Additional Instructions: Tracheostomy was replaced. Follow-up with primary care physician/facility medical officer/medical specialists. Return to the emergency department with any new or worsening symptoms. Patient Language: Greek Prescriptions: No Action bisacodyl 10 mg Suppository 10 mg RECTAL DAILY PRN (Reason: Constipation) Rx Instructions: if no results for MOM sennosides [senna] 8.6 mg Tablet 8.6 mg feeding tube BID guaifenesin 100 mg/5 mL liquid 300 mg feeding tube BID PRN (Reason: Cough) magnesium hydroxide [Milk of Magnesia] 400 mg/5 mL Suspension 30 ml PO HS PRN (Reason: Constipation) Rx Instructions: If no BM in 3 days azithromycin 250 mg tablet 250 mg PO DAILY 4 Days Qty: 4 0RF Rx Instructions: start on day 2 of therapy (08/21/24); already received first dose 08/20/24 polyethylene glycol 3350 17 gram/dose powder 17 g feeding tube DAILY PRN (Reason: Constipation) metoprolol tartrate 25 mg tablet 25 mg feeding tube BID atorvastatin 40 mg tablet 40 mg PO HS ipratropium-albuterol 0.5 mg-3 mg(2.5 mg base)/3 mL solution for nebulization 3 ml INHALATION Q6H PRN (Reason: Shortness Of Breath) artificial tears solution Drops 1 drp OPHTHALMIC (EYE) PRN PRN (Reason: Dry Eye(S)) Rx Instructions: instill 1 drop per eye as needed for dry eye thiamine HCl (vitamin B1) 100 mg Tablet 100 mg feeding tube DAILY famotidine 20 mg tablet 20 mg feeding tube BID valproic acid (as sodium salt) 250 mg/5 mL solution 1,250 mg feeding tube QID magnesium citrate [Citroma] Solution 296 ml PO DAILY PRN (Reason: Constipation) Rx Instructions: if no results from enema folic acid 1 mg tablet 1 mg feeding tube DAILY levetiracetam 100 mg/mL solution 1,500 mg feeding tube BID calcium carbonate 500 mg/5 mL (1,250 mg/5 mL) Suspension 1,250 mg PO Q6H PRN (Reason: Heartburn) lacosamide 10 mg/mL solution 200 mg feeding tube BID clobazam 10 mg tablet 10 mg feeding tube DAILY Eliquis 5 mg Tablet 5 mg feeding tube BID aspirin 81 mg Tablet,Chewable 81 mg feeding tube DAILY acetaminophen 650 mg/20.3 mL Suspension 650 mg feeding tube Q4H PRN (Reason: Pain (Scale Score 1-3)) meropenem 1 gram Recon Soln 1 g IV Q8H Qty: 8 0RF Follow-up/Referrals: Lauro,MD Burke [Primary Care Provider] - Stand Alone Forms: Halfway Discharge Time of Disposition: 03:06
[2024-08-22 02:50] VITALS: BP 136/71; PULSE 68; RESP 18; O2SAT 95
[2024-08-22 03:00] VITALS: O2SAT 96
== END 2024-08-22 04:20 ==
PROVIDERS: Emergency Provider Student in an Organized Health Care Education/Training Program; PCP Internal Medicine
DX: Z43.0 Encounter for attention to tracheostomy (principal); I69.920 Aphasia following unspecified cerebrovascular disease; I69.991 Dysphagia following unspecified cerebrovascular disease; I69.954 Hemiplegia and hemiparesis following unspecified cerebrovascular disease affecting left non-dominant side; F01.52 Vascular dementia, unspecified severity, with psychotic disturbance; G40.909 Epilepsy, unspecified, not intractable, without status epilepticus; J44.9 Chronic obstructive pulmonary disease, unspecified; K31.84 Gastroparesis; N40.0 Benign prostatic hyperplasia without lower urinary tract symptoms; D50.9 Iron deficiency anemia, unspecified; Z99.81 Dependence on supplemental oxygen; Z93.1 Gastrostomy status; Z74.01 Bed confinement status; Z86.718 Personal history of other venous thrombosis and embolism; Z89.612 Acquired absence of left leg above knee; Z87.891 Personal history of nicotine dependence; Z79.01 Long term (current) use of anticoagulants; Z79.82 Long term (current) use of aspirin; Z79.899 Other long term (current) drug therapy
CPT/HCPCS: 71045; 99283

== ENCOUNTER 2024-09-16 05:24 | Emergency (ER) | payer OTHER, SELFPAY ==
[2024-09-16] VITALS (8 sets, daily range): BP systolic 133–152; BP diastolic 82–110; PULSE 80–100; RESP 18–28; TEMP 36.7; O2SAT 97–100
--- NOTE | ~2024-09-16 | XR_ITS ---
XR chest 1V portable 09/16/2024 07:36 Indication: Dyspnea Procedure: AP portable chest Comparison: Comparison to multiple prior studies sequentially, with oldest reviewed study dated 11/2024. Findings: Cardiomegaly. Right perihilar and bibasilar infiltrates are present which may represent mil d edema or pneumonia. Tracheostomy tube present. No significant effusion or pneumothorax. Impression: 1: Mild bilateral interstitial infiltrates which may represent pneumonia or edema. Reviewed, dictated and finalized at location A. Impression: 1: Mild bilateral interstitial infiltrates which may represent pneumonia or yasmin maCarter
[2024-09-16 06:01] LABS: Basophils Percent Auto 0.3 % (0.2-1.2); Eosinophils Absolute Auto 0.5 K/mm3 (0-0.3); Eosinophils Percent Auto 7.4 % (0-4.4); Hematocrit 42.5 % (42.0-52.0); Hemoglobin 13.7 g/dL (14.0-18.0); Immature Granulocyte Absolute 0.02 K/mm3 (0.00-0.031); Immature Granulocyte Percent A 0.3 % (0-0.5); Immature Platelet Fraction Pct 12.9 % (0.9-11.2); Lymphocytes Absolute Auto 1.91 K/mm3 (0.9-3.2); Lymphocytes Percent Auto 28.9 % (18.3-44.2); Mean Corpuscular HGB Conc 32.2 g/dl (32-36); Mean Corpuscular Hemoglobin 32.5 pg (26-34); Mean Platelet Volume 12.8 fl (7.4-10.4); Monocytes Absolute Auto 0.6 K/mm3 (0.1-0.6); Monocytes Percent Auto 8.9 % (2.6-8.5); Neutrophils Absolute Auto 3.6 K/mm3 (1.3-6.7); Neutrophils Percent Auto 54.2 % (45.5-73.1); Platelet Count Result 129 k/mm3 (150-375); Red Blood Count 4.21 M/mm3 (4.6-6.20); Red Cell Distribution Width 13.2 % (11.5-14.5); White Blood Count 6.6 K/mm3 (4.5-10.0)
[2024-09-16 06:12] LABS: Alanine Aminotransferase 21 U/L (6-50); Albumin Level 4.1 g/dL (3.5-5.1); Alkaline Phosphatase 103 U/L (38-126); Anion Gap 8 mmol/L (4-12); Aspartate Amino Transferase 25 U/L (17-59); Bilirubin,Total 0.5 mg/dL (0.2-1.3); Blood Urea Nitrogen 15 mg/dL (9-20); Calcium 9.4 mg/dL (8.4-10.2); Carbon Dioxide 29 mmol/L (22-30); Chloride 104 mmol/L (98-107); Estimated CRCL calculation 96 ml/min; Estimated Glomerular Filt Rate > 60; Glucose 95 mg/dL (65-110); Lipase 90 U/L (23-300); Magnesium 2.1 mg/dL (1.6-2.3); Potassium 4.3 mmol/L (3.4-5.0); Sodium 141 mmol/L (137-145)
[2024-09-16] MEDS: SODIUM CHLORIDE 0.9% IV 1,000 ML 999 ML IV CONT (06:15)
[2024-09-16] MEDS: ONDANSETRON INJ 4 MG/2 ML VIAL IV PUSH (07:11)
--- OUTSIDE RECORDS SUMMARY | 2024-09-16 07:17 | XMS_ITS | Data Portability ---
Demographics Address [address] [place] [address] Home Phone Mobile Phone Email Address Preferred Language en Marital Status Never Quaker Affiliation Unknown Race Black or Irma rican Ethnic Group Not or Lati no Author Organization [facility] Address [address] [place] [address] Assessment No assessment recorded. Plan of Treatment Reminders Order Date Submit Date Provider Last Modified By Organization Details Last Modified Time Details Appointments None recorded. Lab None recorded. Referral None recorded. Procedures None recorded. Surgeries None recorded. Imaging None recorded. Medication Orders ibuprofen 800 mg tablet 2015 016 [facility], [address] [place] [address], [id number], 6 18:35:08 Prozac 20 mg capsule 2014 015 [facility], [address] [place] [address], [id number], 5 16:10:15 tramadol 50 mg tablet 2014 015 [facility], [address] [place] [address], [id number], 5 12:13:56 Flomax 0.4 mg capsule 2014 015 [facility], [address] [place] [address], [id number], 5 16:10:16 Ambien 10 mg tablet 2014 015 [facility] 2 [employer], [facility], [address] [place] [address], [id number], 5 10:37:28 Patient TargetsNo targets recorded. Patient Instructions Encounter Date Encounter Id Patient Instructions Last Modified By Organization Details Last Modified Time 06/10/2014 [id number] stroke: care instructions Not available 06/21/2014 17:33:19 insomnia: care instructions Not available 06/21/2014 17:33:19 epilepsy: care instructions Not available 06/21/2014 17:33:19 09/18/2014 [id number] epilepsy: care instructions dsalmond Not available 09/18/2014 17:05:10 back care and preventing injuries: care instructions dsalmond Not available 09/18/2014 17:05:10 04/16/2015 [id number] epilepsy: care instructions campadu Not available 04/16/2015 16:05:30 06/12/2015 [id number] stroke: care instructions dsalmond Not available 06/13/2015 12:21:31 epilepsy: care instructions dsalmond Not available 06/13/2015 12:21:31 learning about high blood pressure dsalmond Not available 06/13/2015 12:21:31 Reason for Referral None Reported. Results Created Date Observation Date Name Description Value Unit Range Abnormal Flag Note LastModifiedBy Organization Detail LastModifiedTime 06/12/19 16 06/12/2015 CBC w/ auto diff WBC 5.9 K/uL 3.4-10 .8 Not Available [facility] (Lab) [address] [place], [address], 06/12/2015 19:52:35 06/12/19 16 06/12/2015 CBC w/ auto diff red blood count 4.6 M/uL 4.5-6. 3 Not Available [facility] (Lab) [address], [place], [address], 06/12/2015 19:52:35 06/12/19 16 06/12/2015 CBC w/ auto diff hemoglobin 14.7 g/dL 13.5-1 7.5 Not Available [facility] (Lab) [address] [place], [address], 06/12/2015 19:52:35 06/12/19 16 06/12/2015 CBC w/ auto diff hematocrit 44.5 % 40.0-5 2.0 Not Available [facility] (Lab) [address] [place], [address], 06/12/2015 19:52:35 06/12/19 16 06/12/2015 CBC w/ auto diff MCV 97 fL 80-95 high Not Available [facility] (Lab) [address] [place], [address], 06/12/2015 19:52:35 06/12/19 16 06/12/2015 CBC w/ auto diff MCH 32 pg 27-32 Not Available [facility] (Lab) [address] [place], [address], 06/12/2015 19:52:35 06/12/19 16 06/12/2015 CBC w/ auto diff MCHC 33 g/dL 32-36 Not Available [facility] (Lab) [address] [place], [address], 06/12/2015 19:52:35 06/12/19 16 06/12/2015 CBC w/ auto diff platelets 219 K/uL 155-37 9 Not Available [facility] (Lab) [address] [place], [address], 06/12/2015 19:52:35 06/12/19 16 06/12/2015 CBC w/ auto diff RDW 11.6 % 11.5-1 4.5 Not Available [facility] (Lab) [address] [place], [address], 06/12/2015 19:52:35 06/12/19 16 06/12/2015 CBC w/ auto diff MPV 11.1 fL 8.9-12 .7 Not Available [facility] (Lab) [address] [place], [address], 06/12/2015 19:52:35 06/12/19 16 06/12/2015 CBC w/ auto diff neutrophils absolute 2.5 K/uL 1.4-7. 0 Not Available [facility] (Lab) [address] [facility], [place], [address], 06/12/2015 19:52:35 06/12/19 16 06/12/2015 CBC w/ auto diff lymphs (absolute) 2.6 K/uL 0.7-3. 1 Not Available [facility] (Lab) [address] [facility], [place], [address], 06/12/2015 19:52:35 06/12/19 16 06/12/2015 CBC w/ auto diff monocytes (absolute) 0.5 K/uL 0.1-0. 9 Not Available [facility] (Lab) [address] [place], [address], 06/12/2015 19:52:35 06/12/19 16 06/12/2015 CBC w/ auto diff eos (absolute) 0.2 K/uL 0.0-0. 4 Not Available [facility] (Lab) [address] [place], [address], 06/12/2015 19:52:35 06/12/19 16 06/12/2015 CBC w/ auto diff baso (absolute) 0.0 K/uL 0.1-0. 3 low Not Available [facility] (Lab) [address] [facility], [place], [address], 06/12/2015 19:52:35 06/12/19 16 06/12/2015 CBC w/ auto diff neut % 43.1 % 40.0-7 4.0 Not Available [facility] (Lab) [address] [place], [address], 06/12/2015 19:52:35 06/12/19 16 06/12/2015 CBC w/ auto diff lymphs % 44.6 % 14.0-4 6.0 Not Available [facility] (Lab) [address] [place], [address], 06/12/2015 19:52:35 06/12/19 16 06/12/2015 CBC w/ auto diff mono % 8.7 % 4.0-12 .0 Not Available [facility] (Lab) [address], [place], [address], 06/12/2015 19:52:35 06/12/19 16 06/12/2015 CBC w/ auto diff eos % 3 % <=5 Not Available [facility] (Lab) [address], [place], [address], 06/12/2015 19:52:35 06/12/19 16 06/12/2015 CBC w/ auto diff baso % 0.2 % 0.1-1. 1 Not Available [facility] (Lab) [address] [facility], [place], [address], 06/12/2015 19:52:35 06/12/19 16 06/13/2015 HbA1c (hemo globi n A1c), blood hemoglobin A1C 5.4 % 4.8-5. 6 . Pre-d iabet es: 5.7 - 6.4 Diabe ivet: >6.4 Glyce [place] contr ol for adult s with diabe ivet: <7.0 Not Available [facility] (Lab) [address], [place], [address], 06/13/2015 04:12:44 06/12/19 16 06/13/2015 T4, total , serum thyroxine T4 4.7 ug/dL 4.5-12 .0 Not Available [facility] (Lab) [address] [place], [address], 06/13/2015 05:19:09 06/12/19 16 06/13/2015 CMP, serum or plasm a glucose, serum 98 mg/dL 65-99 Not Available [facility] [address], [place], [address], 06/13/2015 05:19:11 06/12/19 16 06/13/2015 CMP, serum or plasm a BUN 7 mg/dL 6-24 Not Available [facility] (Lab) [address], [place], [address], 06/13/2015 05:19:11 06/12/19 16 06/13/2015 CMP, serum or plasm a creatinine, serum 0.78 mg/dL 0.76-1 .27 Not Available [facility] (Lab) [address], [place], [address], 06/13/2015 05:19:11 06/12/19 16 06/13/2015 CMP, serum or plasm a eGFR if nonafricn AM 102 mL/mi n/1.7 3 >59 Not Available [facility] (Lab) [address], [place], [address], 06/13/2015 05:19:11 06/12/19 16 06/13/2015 CMP, serum or plasm a eGFR if 118 mL/mi n/1.7 3 >59 Not Available [facility] (Lab) [address], [place], [address], 06/13/2015 05:19:11 06/12/19 16 06/13/2015 CMP, serum or plasm a BUN/creatini ne ratio 9 9-20 Not Available [facility] (Lab) [address], [place], [address], 06/13/2015 05:19:11 06/12/19 16 06/13/2015 CMP, serum or plasm a sodium, serum 141 mmol/ L 134-14 4 Not Available [facility] (Lab) [address] [place], [address], 06/13/2015 05:19:11 06/12/19 16 06/13/2015 CMP, serum or plasm a potassium, serum 4.5 mmol/ L 3.5-5. 2 Not Available [facility] (Lab) [address], [place], [address], 06/13/2015 05:19:11 06/12/19 16 06/13/2015 CMP, serum or plasm a chloride, serum 101 mmol/ L 97-108 Not Available [facility] (Lab) [address] [place], [address], 06/13/2015 05:19:11 06/12/19 16 06/13/2015 CMP, serum or plasm a carbon dioxide, total 23 mmol/ L 18-29 Not Available [facility] (Lab) [address], [place], [address], 06/13/2015 05:19:11 06/12/19 16 06/13/2015 CMP, serum or plasm a calcium, serum 9.5 mg/dL 8.7-10 .2 Not Available [facility] (Lab) [address], [place], [address], 06/13/2015 05:19:11 06/12/1906/13/2015 CMP, serum or plasm a protein total serum 7.2 g/dL 6.0-8. 5 Not Available [facility] (Lab) [address], [place], [address], 06/13/2015 05:19:11 06/12/1906/13/2015 CMP, serum or plasm a albumin, serum 4.5 g/dL 3.5-5. 5 Not Available [facility] (Lab) [address], [place], [address], 06/13/2015 05:19:11 06/12/19 16 06/13/2015 CMP, serum or plasm a globulin total 2.7 g/dL 1.5-4. 5 Not Available [facility] (Lab) [address], [place], [address], 06/13/2015 05:19:11 06/12/1906/13/2015 CMP, serum or plasm a A/G ratio 1.7 1.1-2. 5 Not Available [facility] (Lab) [address], [place], [address], 06/13/2015 05:19:11 06/12/1906/13/2015 CMP, serum or plasm a bilirubin total <0.2 mg/dL 0.0-1. 2 Not Available [facility] (Lab) [address] [place], [address], 06/13/2015 05:19:11 06/12/19 16 06/13/2015 CMP, serum or plasm a alkaline phosphatase ser 105 IU/L 39-117 Not Available [facility] (Lab) [address], [place], [address], 06/13/2015 05:19:11 06/12/19 16 06/13/2015 CMP, serum or plasm a AST (SGOT) 20 IU/L 0-40 Not Available [facility] ([facility]) [address] [place], [address], 06/13/2015 05:19:11 06/12/19 16 06/13/2015 CMP, serum or plasm a ALT (SGPT) 18 IU/L 0-44 Not Available [facility] ([facility]) [address] [place], [address], 06/13/2015 05:19:11 06/12/19 16 06/13/2015 TSH, serum or plasm a TSH 2.010 uIU/m L 0.450- 4.500 Not Available [facility] (Lab) [address] [place], [address], 06/13/2015 05:19:12 06/12/19 16 06/13/2015 PSA, serum [...] t be inter prete d as absol [place] evide nce of the prese nce or absen ce of truong mena . Not Available [facility] (Lab) [address] [place], [address], 06/13/2015 05:19:13 06/12/19 16 06/13/2015 lipid panel w/ direc t LDL, serum cholesterol, total 215 mg/dL 100-19 9 high Not Available [facility] (Lab) [address] [place], [address], 06/13/2015 05:19:14 06/12/19 16 06/13/2015 lipid panel w/ direc t LDL, serum triglyceride s 73 mg/dL 0-149 Not Available [facility] (Lab) [address] [place], [address], 06/13/2015 05:19:14 06/12/19 16 06/13/2015 lipid panel w/ direc t LDL, serum HDL cholesterol 85 mg/dL >39 Accor ding to ATP-I II Guide lines , HDL-C >59 mg/dL is consi dered a negat phan risk facto r for CHD. Not Available [facility] (Lab) [address] [place], [address], 06/13/2015 05:19:14 06/12/19 16 06/13/2015 lipid panel w/ direc t LDL, serum VLDL cholesterol margarita 15 mg/dL 5-40 Not Available [facility] (Lab) [address] [place], [address], 06/13/2015 05:19:14 06/12/19 16 06/13/2015 lipid panel w/ direc t LDL, serum LDL cholesterol calc 115 mg/dL 0-99 high Not Available [facility] (Lab) [address] [place], [address], 06/13/2015 05:19:14 06/12/19 16 06/13/2015 lipid panel w/ direc t LDL, serum lipid calculation Not Available [facility] [address] [place], [address], 06/13/2015 05:19:14 09/22/19 15 09/21/2014 imagi ng/di agnos tic resul t No observ ation record ed. [address] , [place], [address], 09/30/2014 11:19:53 09/26/19 15 imagi ng/di agnos tic resul t No observ ation record ed. [email or web address] Not Available 2014 11:08:28 10/01/19 15 09/27/2014 imagi ng/di agnos tic resul t No observ ation record ed. [address] [place], [address], 10/03/2014 11:08:29 11/09/19 15 11/08/2014 imagi ng/di agnos tic resul t No observ ation record ed. [email or web address] Not Available 2014 15:10:11 12/02/19 15 12/01/2014 imagi ng/di agnos tic resul t No observ ation record ed. [email or web address] Not Available 2014 10:38:41 01/03/20 15 12/31/2014 imagi ng/di agnos tic resul t No observ ation record ed. [facility] (Rad) [address] [place], [address], 01/02/2015 09:50:17 01/07/20 15 01/05/2015 imagi ng/di agnos tic resul t No observ ation record ed. [email or web address] [facility], [place], [address], 01/06/2015 09:32:38 03/10/20 15 03/10/2015 imagi ng/di agnos tic resul t No observ ation record ed. [email or web address] [facility] (Rad) [address] [place], [address], 03/10/2015 12:50:58 03/11/20 15 03/11/2015 CV EKG 12 lead MOJGAN TABOR MD: KIRILL ANN MD 6905 ACCT: [id number] ADMIT/ SERVIC E DATE: DISCHA RGE DATE: : 1959 PT TYPE: ADM IN SEX: M ORD SITE: [address] TEST DATE: 2014-05 PAT NAME: MOJGAN TABOR DEPART MENT: CARD 40 PATIEN T ID: [id number] ROOM: [facility] GENDER : MALE TECHNI MARIA ISABEL: CDN : 01-[address] BY: CADE ANN ORDER NUMBER : [id number] [id number] CJ Lu MD: FELIPE SELF MEASUR EMENTS INTERV ALS AXIS RATE: 145 P: 81 NJ: 118 QRS: 19 QRSD: 82 T: 70 QT: 282 QTC: 438 INTERP RETIVE STATEM ENTS SINUS TACHYC ARDIA WITH SHORT NJ INTERV AL WITH OCCASI ONAL VENTRI CULAR PREMAT URE COMPLE XES WITH OCCASI ONAL SUPRAV ENTRIC ULAR AMBER SEPTAL MYOCAR DIAL INFARC TION, PROBAB LY OLD NONSPE CIFIC ST SEGMEN T ABNORM ALITIE S, CANNOT RULE OUT ISCHEM IA ELECTR ONICAL LY SIGNED BY FELIPE SELF AT 17:03: 07 CDT [facility], [place], [address], 05/07/2015 04:08:47 03/11/20 15 03/11/2015 xr chest 1 view alejandraMOJGAN Hester 6905 ADMIT/ SERVIC E DATE: ACCT: [id number] DISCHA RGE DATE: : 1959 SEX: M ORD SITE: [facility] PT TYPE: ADM IN JING MUHAMMAD MD: KIRILL ANN MD STUDY DATE REPORT # ORDER # EXT ORDER ID [id number] 1.002 PROC CODE: [id number] ORT PROCED URE DESCRI PTION: XR CHEST 1 VIEW PORTAB LE I MPRESS ION: NO ACUTE INFILT RATE. EXAMIN ATION: PORTAB LE CHEST X-RAY 1 VIEW ACCESS ION: [id number] EXAM DATE/T TRAVON: 2014 8:36 PM CLINIC [...] SIGNED BY: MARYBEL CROUCH ER10/07/2014 8:54 PM [facility], [place], [address], 05/07/2015 04:08:47 03/12/20 15 03/12/2015 MRI brain wo MOJGAN TABOR 6905 ADMIT/ SERVIC E DATE: ACCT: [id number] DISCHA RGE DATE: : 1959 SEX: M ORD SITE: [facility] PT TYPE: ADM IN BRANDONI SABINA MD: KIRILL ANN MD STUDY DATE REPORT # ORDER # EXT ORDER ID [id number] 1.001 PROC CODE: BRNWOC PROCED URE DESCRI [...] BRAIN WITHOU T CONTRA ST. ACCESS ION: [id number] EXAM DATE/T TRAVON: 2014 11:23 AM CLINIC [...] SIGNED BY: CADE GRAY 11:51 AM build [facility], [place], [address], 05/07/2015 04:08:47 06/19/19 16 06/19/2015 imagi ng/di agnos tic resul t No observ ation record ed. [facility] Not Available 2015 09:33:44 06/19/19 16 06/19/2015 imagi ng/di agnos tic resul t No observ ation record ed. [facility] (Lab) [address] [place] [address] , [place], [address], 06/19/2015 09:33:44 06/19/19 16 06/19/2015 imagi ng/di agnos tic resul t No observ ation record ed. [facility] (Lab) [address] [place] [address] [place], [address], 06/20/2015 09:57:26 06/20/19 16 06/19/2015 imagi ng/di agnos tic resul t No observ ation record ed. [address] [place], [address], 06/20/2015 10:01:56 05/09/20 19 05/09/2019 , les aldana id arter y No observ ation record ed. [address] [place], [address], 05/09/2019 17:59:20 Result Notes None recorded. Problems Name Problem SNOMED Code Status Onset Date Resolution Date Notes Provider Name and Address Organization Details Recorded Time Low back pain 247221238 Active Burke Ann MD Attn: Zulemalivia lu,[address] [facility], [place], [address], [place] [facility] 5 16:09:38 Essential hypertension 97714742 Active Burke Ann MD Attn: Austin tabitha,[address] [facility], [place], [address], [place] [facility] 6 18:34:53 Anxiety 95403081 Active Burke Ann MD Attn: Austin lu,[address] [facility], [place], [address], [place] [facility] 5 15:03:30 Laceration - injury 513631806 Active Burke Ann MD Attn: Zulemalivia lu,[address] [facility], [place], [address], [place] [facility] 5 15:31:20 Seizure disorder 647194899 Active Burke Ann MD Attn: Austin tabitha,[address] [facility], [place], [address], [place] [facility] 6 18:34:53 Cerebrovascula r accident 277317692 Active Burke Ann MD Attn: [place] tabitha,[address] [facility], [place], [address], [place] [facility] 6 18:34:53 Insomnia 158610925 Active Burke Ann MD Attn: Austin lu,[address] [facility], [place], [address], [place] [facility] 5 15:31:20 Problem Notes None recorded. Procedures Surgical History None recorded. Imaging Results Imaging Date Name Status LastModified by Organiz ation Details LastModified Time 09/21/2014 imaging/diagn ostic result completed [address] [place], [address], 09/30/2014 11:19:53 09/25/2014 imaging/diagn ostic result completed Information not available 10/03/2014 11:08:28 09/27/2014 imaging/diagn ostic result completed [address] [place], [address], 10/03/2014 11:08:29 11/08/2014 imaging/diagn ostic result completed Information not available 11/11/2014 15:10:11 12/01/2014 imaging/diagn ostic result completed [email or web address] Information not available 12/02/2014 10:38:41 12/31/2014 imaging/diagn ostic result completed [email or web address] [facility] ([facility]) [address] [place], [address], 01/02/2015 09:50:17 01/05/2015 imaging/diagn ostic result [place] [email or web address] [place], [address], 01/06/2015 09:32:38 03/10/2015 imaging/diagn ostic result completed [email or web address] [facility] ([facility]) [address] [place], [address], 03/10/2015 12:50:58 03/11/2015 CV EKG 12 [place], [address], 05/07/2015 04:08:47 03/11/2015 xr chest 1 [place], [address], 05/07/2015 04:08:47 03/12/2015 [place], [address], 05/07/2015 04:08:47 06/19/2015 imaging/diagn ostic result completed [facility] Information not available 06/19/2015 09:33:44 06/19/2015 imaging/diagn ostic result completed [facility] (Lab) [address] [place] [address] [place], [address], 06/19/2015 09:33:44 06/19/2015 imaging/diagn ostic result completed [facility] (Lab) [address] [place] [address] [place], [address], 06/20/2015 09:57:26 06/19/2015 imaging/diagn ostic result completed [address] [place], [address], 06/20/2015 10:01:56 05/09/2019 US, duplex, carotid artery completed [address] [place], [address], 05/09/2019 17:59:20 Procedure Notes None recorded. Medical [...] Details Last Updated DateTime 5 22 /min 00991.9 95465 g 98.7 [degF] 170.18 cm 21.4 kg/m2 80 /min 148 mm[Hg] 94 mm[Hg] Leonor Arauz MA [facility] 5 15:57:48 Date Recorded Body height Body mass index (BMI) Body weight Heart rate Respiratory rate Body temperature Systolic blood pressure Diastolic blood pressure Provider Name and Address Organization Details Last Updated DateTime 5 170.18 cm 21.5 kg/m2 39327.1 5469 g 88 /min 20 /min 98.2 [degF] 132 mm[Hg] 80 mm[Hg] Fior Pereyra MA [facility] 5 12:08:47 Date Recorded Body temperature Body height Body mass index (BMI) Heart rate Respiratory rate Body weight Systolic blood pressure Diastolic blood pressure Provider Name and Address Organization Details Last Updated DateTime 5 97.9 [degF] 175.26 cm 20.2 kg/m2 78 /min 18 /min 77064.1 5469 g 142 mm[Hg] 90 mm[Hg] Jeannasunitha Luan [facility] 5 13:46:55 Date Recorded Heart rate Body height Respiratory rate Body mass index (BMI) Body weight Body temperature Systolic blood pressure Diastolic blood pressure Provider Name and Address Organization Details Last Updated DateTime 6 92 /min 170.18 cm 20 /min 21.5 kg/m2 97706.1 5469 g 98 [degF] 102 mm[Hg] 78 mm[Hg] Leonor Arauz MA [facility] 6 16:31:07 Social History None recorded. Functional [...] Skin Problems N Anemia N Heart Attack ([place]) N Diabetes N Seizures/Epilepsy Y Asthma N Allergies N Hepatitis N Osteoporosis N Heart Failure N Past Encounters Encounter ID Performer Location Encounter Start Date Encounter Closed Date Diagnosis/Indication Diagnosis SNOMED-CT Code Diagnosis ICD10 Code Diagnosis Note [id number] Jaennie Sherman RN [facility] (Adult/Fa m Med) [address] [place] [phone] 06/10/2014 13:26:21 06/10/2014 18:13:06 Laceration - injury 710250966 Seizure disorder 881244809 Cerebrovas cular accident 112490857 Insomnia 738418761 [id number] Nata Albert LPN [facility] (Adult/Fa m Med) [address] [place] [address] 09/18/2014 14:45:50 09/18/2014 18:01:22 Seizure disorder 818312622 Anxiety 53451816 Low back pain 129687354 [id number] Crysatl Toy [facility] (Adult/Fa m Med) [address] [place] [phone] 04/16/2015 11:24:38 04/16/2015 17:33:17 Essential hypertension 15081543 I10 Anxiety 39496142 F41.9 Seizure disorder 3452244 02 G40.909 [id number] Dotty Peace [facility] (Adult/Fa m Med) [address] [place] [address] 06/12/2015 15:25:04 06/27/2015 12:04:51 Essential hypertension 31993073 I10 Seizure disorder 2590591 02 G40.909 Cerebrovas cular accident 086846210 I63.9 Health Concerns Section Related Observation LastModified by Organization Detai ls LastModified Time None Recorded Concern Status LastModified by Organization Details LastModified Time None Recorded Advance Directives Directive None Recorded Payers Encounter Date Sequence Insurance Name Policy Number Policy Gilbert Covered Member ID Gilbert Member ID Guarantor Name 06/10/2014 1 [facility] PRIOR TO 11/27/2020 (MEDICAID REPLACEMENT - HMO) Mojgan Tabor [id number] Mojgan Tabor 09/18/2014 1 [facility] PRIOR TO 11/27/2020 (MEDICAID REPLACEMENT - HMO) Mojgan Tabor [id number] Mojgan Tabor 04/16/2015 1 [facility] PRIOR TO 11/27/2020 (MEDICAID REPLACEMENT - HMO) Mojgan Tabor [id number] Mogjan Tabor 06/12/2015 1 [facility] PRIOR TO 11/27/2020 (MEDICAID REPLACEMENT - HMO) Mojgan Tabor [id number] Mojgan Tabor Notes Date Note Type Note Provider Name and Address Organization Details Recorded Time 04/16/2015 text/html FOLLOW up care since stroke Burke Ann MD Attn: Accounting,[address] [place], [address], [place] [facility] 04/16/2015 15:03:31
--- OUTSIDE RECORDS SUMMARY | 2024-09-16 07:17 | XMS_ITS | Clinical Summary ---
Author Organization [facility] Address [address] [address] Care Team Providers Care Cost Accountant Name Role Phone Elizabeth Sullivan RN Unavailable [phone] Dany Monsivais MD Primary Care Provider Source Comments [facility],non-owned Affiliates and Associated Physician Practices is amultiple site organization consisting of ambulatory clinics and hospital sitesin [place], [place], [place] and [place]. This disclosure is being madepursuant to the Care Everywhere program and may not contain all information available regarding this patient. Last updated 18.[facility] Allergies Active Allergy Reactions Criticality Noted Date Comments Clonazepam Psychiatric Medium 12/09/2021 hallucinations Medications * Be aware that medications may not be up to date on this document. Alwaysverify current medications with the patient. folic acid (Folvite) 1 MG tablet 1 [...] for 90 days 1050 mL 2 5 025 Active pantoprazole (Protonix) 40 MG packet Take 1 (one) packet by mouth 2 times daily for 60 days 5 Active valproic acid (Depakene) 250 MG/5ML solution 10 mL by Per G Tube route every 8 hours Active acetaminophen (Tylenol) 325 MG tablet 2 (two) tablets by Enteral Tube route 3 times daily Maximum allowable Acetaminophen amount = 4 Grams (4000 mg) / 24 hours. Pt takes 160 mg/5mL liquid which is the same as 325 mg tab 5 Active pantoprazole EC (Protonix) 40 MG tablet Take 1 (one) tablet by mouth 2 times daily 5 Active Active Problems Problem Noted Date Diagnosed [...] No evidence of infection Urine cultures from [facility] last month were negative growth as [...] Encounters Date Type Department Care Team Description 09/07/2024 Travel 08/02/2024 4:31 PM RUBY ENGINEER - 08/08/2024 8:48 PM CDT Hospital Encounter [facility] [address] [place] [address] Elmo Johnson MD Mayer, Joshua C, DO Arshad, Iqra, MD Archuleta, Lydia, MD Joag, Madhura, MD Internal Medicine Discharge Disposition: [facility] or Supportive Care 08/02/2024 1:23 AM RUBY ENGINEER - 08/02/2024 8:15 AM RUBY ENGINEER Emergency [facility] EMERGENCY DEPARTMENT [address] [place] [phone] Arthur Marinelli MD Other tracheostomy complication (Primary Dx); Abdominal pain, unspecified abdominal location Discharge Disposition: Nursing Home Facility 08/02/2024 Travel 07/27/2024 3:54 PM RUBY ENGINEER - 07/28/2024 6:53 AM RUBY ENGINEER Emergency [facility] EMERGENCY DEPARTMENT [address] [place] [phone] Serjio Vilchis MD Feeding intolerance (Primary Dx); Generalized abdominal pain; Chronic pulmonary aspiration, initial encounter Discharge Disposition: Nursing Home Facility 07/27/2024 Travel 07/18/2024 4:15 PM RUBY ENGINEER - 07/18/2024 4:45 PM RUBY ENGINEER Surgery [facility] ENDOSCOPY [address] [place] [phone] Clifton Trinh MD EGD(ISO) 07/18/2024 4:05 PM RUBY ENGINEER Anesthesia Event [facility] ENDOSCOPY [address] [place] [phone] Teri Trent MD Dobbs, Kristin L, FINISH FILER-FISHER REEF NET 07/16/2024 9:23 PM RUBY ENGINEER - 07/19/2024 5:51 PM RUBY ENGINEER Hospital Encounter [facility] [address] [place] [phone] Quan Gan MD Arshad, Iqra, MD Bastin, Taylor J, MD Morreale, Peter J III, MD Emergency Medicine Discharge Disposition: Nursing Home Facility 07/16/2024 Travel from Last 3 Months Immunizations Immunization Administration Dates Next Due Covid Reapplix primary monoval ent 12+ yr 0.3mL Purple [...] and heating? Not hard at all 08/06/2024 [facility] [place] of Occupat ional Health - Occupational Stress [...] money to buy more. Never true 08/07/19 Within the past 12 months, t he [...] any time in the past 12 m [facility], were you homeless or living in a senior living (including now)? No 08/06/2024 Sex and Gender Information Value Date Recorded Sex Assigned at Not on file Legal Sex Male 5:07 PM RUBY ENGINEER Gender Identity Not on file Sexual Orientation [...] 72.6 kg (160 lb) 08/04/2024 12:00 AM RUBY ENGINEER Height 175.3 cm (5' 9.02 ) 08/04/2024 12:[address] Body Mass Index 23.62 08/04/2024 12:00 AM RUBY ENGINEER Plan of Treatment Upcoming Encounters Date Type Department Care Team (Late st Contact Info) Description 10/03/2024 11:15 AM CDT Office Visit [facility] - Vascular Surgery [address] [place] [address], [place] [phone] Anna Membreno MD [facility] 2L [place] [address] 12/05/2024 1:00 PM CDT Office Visit [facility] - Neurology [address] [place] [address], [place] [address] Sean Raymundo DO [address] [place] [address] [address] [place] [address] Health Maintenance Due Date Last [...] ( - season) 2024 04/06/2021, 07/02/2020, 06/11/2020 DEPRESSION SCREENING 05/30/2024 INFLUENZA VACCINE (Season Ended) 2025 02/01/2022, 03/16/2021, 03/07/2020, Additional history exists DTAP/TDAP/TD VACCINES (3 - Td or Tdap) [...] POINT OF CARE Routine 08/05/2024 1:43 AM RUBY ENGINEER CBC W/O DIFFERENTIAL Routine 08/05/2024 1:02 AM RUBY ENGINEER Nausea without vomiting PT-INR [facility] Routine 08/05/2024 1:02 AM RUBY ENGINEER Nausea without vomiting MAGNESIUM BLOOD Routine 08/05/2024 1:02 AM RUBY ENGINEER Nausea without vomiting RENAL FUNCTION PANEL Routine 08/05/2024 1:02 AM RUBY ENGINEER Nausea without vomiting CBC W/O DIFFERENTIAL Routine 08/04/2024 12:12 PM RUBY ENGINEER Nausea without vomiting PSA FREE + TOTAL PANEL AM Draw 08/04/2024 12:12 PM RUBY ENGINEER Acute cystitis without hematuria PT-INR [facility] Routine 08/04/2024 12:12 PM RUBY ENGINEER Nausea without vomiting MAGNESIUM BLOOD Routine 08/04/2024 12:12 PM RUBY ENGINEER Nausea without vomiting RENAL FUNCTION PANEL Routine 08/04/2024 12:12 PM RUBY ENGINEER Nausea without vomiting CULTURE URINE STAT 08/03/2024 8:53 AM RUBY ENGINEER Acute cystitis without hematuria HEMOGLOBIN A1C RINKU 08/03/2024 5:18 AM RUBY ENGINEER Nausea without vomiting CBC W/O DIFFERENTIAL STAT 08/03/2024 5:18 AM RUBY ENGINEER Nausea without vomiting PT-INR [facility] STAT 08/03/2024 5:18 AM RUBY ENGINEER Nausea without vomiting MAGNESIUM BLOOD STAT 08/03/2024 5:18 AM RUBY ENGINEER Nausea without vomiting RENAL FUNCTION PANEL STAT 08/03/2024 5:18 AM RUBY ENGINEER Nausea without vomiting TYPE + SCREEN PANEL STAT 08/02/2024 9 :[address] CHEST ABDOMEN PELVIS W CONT STAT 08/02/2024 9:42 PM RUBY ENGINEER Nausea without vomiting XR CHEST 1VW PORTABLE STAT 08/02/2024 5:15 PM RUBY ENGINEER Nausea without vomiting URINALYSIS REFLEX TO MICROSCOPIC NO CULTURE STAT 08/02/2024 5:08 PM RUBY ENGINEER PT-INR [facility] STAT 08/02/2024 5:08 PM RUBY ENGINEER COMPREHENSIVE METABOLIC PANEL STAT 08/02/2024 5:08 PM RUBY ENGINEER LIPASE BLOOD STAT 08/02/2024 5:08 PM RUBY ENGINEER CBC W AUTO DIFFERENTIAL STAT 08/02/2024 5:08 PM RUBY ENGINEER XR CHEST 1VW PORTABLE STAT 08/02/2024 2:33 AM RUBY ENGINEER Abdominal pain, unspecified abdominal location LIPASE BLOOD STAT 08/02/2024 2:03 AM RUBY ENGINEER COMPREHENSIVE METABOLIC PANEL STAT 08/02/2024 2:03 AM RUBY ENGINEER CBC W AUTO DIFFERENTIAL STAT 08/02/2024 2:[address] CHEST ABDOMEN PELVIS W CONT STAT 07/28/2024 12:25 AM RUBY ENGINEER Generalized abdominal pain COMPREHENSIVE METABOLIC PANEL STAT 07/27/2024 6:26 PM RUBY ENGINEER CBC W AUTO DIFFERENTIAL STAT 07/27/2024 6:26 PM RUBY ENGINEER TROPONIN-I HIGH SENSITIVE BASELINE + 1HR STAT 07/27/2024 6:26 PM RUBY ENGINEER MAGNESIUM BLOOD STAT 07/27/2024 6:26 PM RUBY ENGINEER LIPASE BLOOD STAT 07/27/2024 6:26 PM RUBY ENGINEER EKG 12-LEAD Routine 07/27/2024 5:34 PM RUBY ENGINEER Generalized abdominal pain XR CHEST 1VW PORTABLE Routine 07/27/2024 12:39 PM RUBY ENGINEER Nausea and vomiting, unspecified vomiting type GLUCOSE - POINT OF CARE Routine 07/19/2024 5:00 PM RUBY ENGINEER GLUCOSE - POINT OF CARE Routine 07/19/2024 12:10 PM RUBY ENGINEER GLUCOSE - POINT OF CARE Routine 07/19/2024 8:10 AM RUBY ENGINEER CBC W AUTO DIFFERENTIAL Routine 07/19/2024 5:27 AM RUBY ENGINEER Coffee ground emesis GLUCOSE - POINT OF CARE Routine 07/19/2024 3:34 AM RUBY ENGINEER GLUCOSE - POINT OF CARE Routine 07/18/2024 11:33 PM RUBY ENGINEER GLUCOSE - POINT OF CARE Routine 07/18/2024 8:01 PM RUBY ENGINEER PATHOLOGY TISSUE Routine 07/18/2024 4:27 PM RUBY ENGINEER Coffee ground emesis DC ED EGD FLEX TRANSORAL DX 07/18/2024 4:00 PM RUBY ENGINEER Coffee ground emesis EGD Routine 07/18/2024 3:52 PM RUBY ENGINEER GLUCOSE - POINT OF CARE Routine 07/18/2024 12:11 PM RUBY ENGINEER GLUCOSE - POINT OF CARE Routine 07/18/2024 11:44 AM RUBY ENGINEER CBC W AUTO DIFFERENTIAL Routine 07/18/2024 8:07 AM RUBY ENGINEER Coffee ground emesis PT-INR [facility] Routine 07/18/2024 8:07 AM RUBY ENGINEER Nausea and vomiting, unspecified vomiting type VALPROIC ACID LEVEL Routine 07/18/2024 8 :07 AM RUBY ENGINEER Nausea and vomiting, unspecified vomiting type PHOSPHORUS BLOOD AM Draw 07/18/2024 8:07 AM RUBY ENGINEER Coffee ground emesis COMPREHENSIVE METABOLIC PANEL AM Draw 07/18/2024 8:07 AM RUBY ENGINEER Coffee ground emesis MAGNESIUM BLOOD AM Draw 07/18/2024 8:07 AM RUBY ENGINEER Coffee ground emesis GLUCOSE - POINT OF CARE Routine 07/18/2024 7:42 AM RUBY ENGINEER GLUCOSE - POINT OF CARE Routine 07/18/2024 3:31 AM RUBY ENGINEER GLUCOSE - POINT OF CARE Routine 07/17/2024 11:36 PM RUBY ENGINEER GLUCOSE - POINT OF CARE Routine 07/17/2024 8:42 PM RUBY ENGINEER CARDIAC EKG ORDER 07/17/2024 1:4 4 PM RUBY ENGINEER URINE MICROSCOPIC ONLY REFLEX TO CULTURE STAT 07/17/2024 9:58 AM RUBY ENGINEER URINALYSIS REFLEX MICROSCOPIC REFLEX CULTURE STAT 07/17/2024 9:58 AM RUBY ENGINEER CULTURE URINE STAT 07/17/2024 9:58 AM RUBY ENGINEER CBC W AUTO DIFFERENTIAL STAT 07/17/2024 8:31 AM RUBY ENGINEER Coffee ground emesis TROPONIN-I HIGH SENSITIVE REFLEX 1HOUR Timed 07/17/2024 12:03 AM RUBY ENGINEER CBC W AUTO DIFFERENTIAL STAT 07/17/2024 12:03 AM RUBY ENGINEER SARS-COV-2 (COVID-19) FLU A/B RSV PCR RAPID STAT 07/17/2024 12:[address] ABDOMEN PELVIS W CONTRAST STAT 07/16/2024 11:41 PM RUBY ENGINEER Nausea and vomiting, unspecified vomiting type Abdominal distention Other constipation CK BLOOD STAT 07/16/2024 10:44 PM RUBY ENGINEER TROPONIN-I HIGH SENSITIVE BASELINE + 1HR STAT 07/16/2024 10:44 PM RUBY ENGINEER LIPASE BLOOD STAT 07/16/2024 10:44 PM RUBY ENGINEER LACTIC ACID BLOOD REFLEX TO REPEAT STAT 07/16/2024 10:44 PM RUBY ENGINEER COMPREHENSIVE METABOLIC PANEL STAT 07/16/2024 10:44 PM RUBY ENGINEER XR CHEST 1VW PORTABLE STAT 07/16/2024 10:28 PM RUBY ENGINEER Nausea and vomiting, unspecified vomiting type HEPATITIS C AB SCREEN RFLX NAAT QUANT [...] Impression: Successful exchange of the existing 18 B[place]an gastrojejunostomy catheter for a new 18 [place]an gastrojejunostomy catheter under fluoroscopic guidance, as described [...] jelly Procedure: Exchange of the existing 18 [place]an gastrojejunostomy catheter for a new 18 [place]an gastrojejunostomy catheter under fluoroscopic guidance. Start time: 1435 End time: 1451 Fluoroscopic time: 4.0 minutes Contrast: 10 mL of Isovue-300 Procedure in detail: The procedure, risks, and possible complications were explained to the patient in detail, and informed consent was obtained. The patient was placed supine on the procedure table. A community health consultant film of abdomen was obtained, which [...] was removed over the wire. A 4 Botswanan Kumpe catheter was advanced over the wire and using this combination, was advanced into the jejunum. The Kumpe catheter was then removed over the wire. A new 18 [place]an gastrojejunostomy catheter was then advanced over the [...] jelly Procedure: Exchange of the existing 18 B[place]an gastrojejunostomy catheter for a new 18 [place]an gastrojejunostomy catheter under fluoroscopicguidance. Start time: 1435 End time: 1451 Fluoroscopic time: 4.0 minutes Contrast: 10 mL of Isovue-300 Procedure in detail: The procedure, risks, and possible complications were explained to the patient in detail, and informed consent was obtained. The patient was placed supine on the procedure table. A community health consultant film of abdomen wasobtained, which showed [...] was removed over the wire. A 4 Bots[place]an Kumpe catheter wasadvanced over the wire and using this combination, was advanced into the jejunum. The Kumpe catheter was then removed over the wire. A new 18 [place]an gastrojejunostomy catheter was then advanced over the [...] 18 Frenchgastrojejunostomy catheter for a new 18 [place]ots[place]an gastrojejunostomy catheter underfluoroscopic guidance, as described above. [...] Eron Payton on 08/06/2024 3:35 PM Gaurav Melany Leroy PA-C IR ORDERABLES Final Re sult * CT Abdomen Wo Contrast (08/06/2024 11:00 AM CDT) Anatomical Region Laterality Modality Abdomen Computed Tomogra phy 08/06/2024 11:3 9 AM CDT Impressions 08/06/2024 1:31 PM CDT Impression: 1.Appropriately positioned PEG tube with tip in the gastric body. 2.No acute process identified in the abdomen or pelvis. 3.A few small nonobstructing stones in both kidneys. > Dictated by Yessica Lovell MD, MD (logistics vice president). I, Bebo Kuo MD have personally reviewed and interpreted this examination/study. > Interpreting Provider: Bebo Kuo MD on 08/06/2024 1:31 PM Narrative 08/06/2024 1:31 PM CDT PROCEDURE: CT ABDOMEN WO CONTRAST, DATE/TIME OF EXAM: 08/06/2024 11:01 AM, LOCATION [facility] INDICATION: R11.0: Nausea without vomiting Z93.1: [...] CONTRAST, DATE/TIME OF EXAM: 08/06/2024 11:01AM, LOCATION [facility] INDICATION: R11.0: Nausea without vomiting Z93.1: [...] > Dictated by Yessica Lovell MD, MD (logistics vice president). Bebo Thomason MD have personally reviewed and interpreted this examination/study. > Interpreting Provider: Bebo Kuo MD on 51:31 PM us Yary James MD CT ORDERABLES Final Result * GLUCOSE - POINT OF CARE (08/06/2024 6:45 AM CDT) Only the most recent of14 resultswithin the time period is included. Glucose WB/POC 92 70 - 99 mg/dL 08/06/2024 6:46 AM CDT [facility] LABORATORY [facility] Specimen Type Cap Fingerstick 2024 6:46 AM CDT [facility] Blood BLOOD SPECIMEN / Unknown 08/06/2024 6:45 AM CDT 08/06/2024 6:46 AM CDT us Yary James MD LAB - POINT OF CARE ORDERABLE S Final Result [address] [address], [facility] [phone] * XR Abdomen Kub Portable (08/05/2024 6:14 AM CDT) Anatomical Region Laterality Modality Abdomen Digital Radiogra phy 08/05/2024 9:25 AM CDT Impressions 08/05/2024 5:10 PM CDT IMPRESSION: No radiographic evidence of acute intra-abdominal process. Report dictated by Sierra Lyman Dr, MD (logistics vice president). IRamon MD have personally reviewed and interpreted this examination/study. > Interpreting Provider: Ramon Ross MD on 08/05/2024 5:10 PM Narrative 08/05/2024 5:10 PM CDT PROCEDURE: XR ABDOMEN KUB PORTABLE, DATE/TIME OF EXAM: 08/05/2024 6:14 AM, LOCATION [facility] INDICATION: R11.2: Nausea and vomiting, unspecified [...] PORTABLE, DATE/TIME OF EXAM: 08/05/2024 6:14AM, LOCATION [facility] INDICATION: R11.2: Nausea and vomiting, unspecified [...] Report dictated by Sierra Lyman Dr, MD (logistics vice president). I, Ramon Ross MD have personally reviewed and interpreted this examination/study. > Interpreting Provider: Ramon Ross MD on 08/05/2024 5:10 PM Neha Palomino MD DIAGNOSTIC IMAGING ORDERABLE S Final Result * PT-INR [facility] (08/05/2024 1:02 AM RUBY ENGINEER) Only the most recent of5 resultswithin the time period is included. PT 13.8 12.1 - 14.8 Seconds 08/05/2024 3:57 AM [facility] INR 1.1 See Comment 08/05/2024 3:57 AM [facility] Comment:The suggested therap eutic range for standard coumadin (warfarin) therapy is an INR of 2.0-3.0. For high-risk patients (Mechanical Mitral Valve Prosthesis, etc.), the suggested prophylactic therapeutic range is an INR of 2.5-3.5. Blood BLOOD SPECIMEN / Unknown Lab Venipuncture / Unknown 08/05/2024 1:02 AM RUBY ENGINEER 08/05/2024 3:37 AM CDT us Lowell Cao DO LAB - COAGULATION ORDERABLES F inal Result [facility] [address] [place] [phone], [facility] [phone] * (ABNORMAL) CBC W/O DIFFERENTIAL (08/05/2024 1:02 AM RUBY ENGINEER) Only the most recent of3 resultswithin the time period is included. WBC 6.3 4.0 - 10.7 x10E9/L 08/05/2024 3:57 AM [facility] RBC Count 4.08(L) 4.30 - 5.80 x10E12/L 08/05/2024 3:57 AM [facility] Hemoglobin 12.8(L) 13.3 - 17.5 g/dL 08/05/2024 3:57 AM [facility] Hematocrit 38.5(L) 38.7 - 51.1 % 08/05/2024 3:57 AM [facility] MCV 94.4 80.0 - 98.0 fL 08/05/2024 3:57 AM [facility] MCH 31.4 26.7 - 33.6 pg 08/05/2024 3:57 AM [facility] MCHC 33.2 31.7 - 36.3 g/dL 08/05/2024 3:57 AM [facility] RDW-CV 13.2 11.3 - 14.8 % 08/05/2024 3:57 AM [facility] Platelet Count 187 150 - 420 x10E9/L 08/05/2024 3:57 AM [facility] MPV 13.2(H) 7.8 - 11.4 fL 08/05/2024 3:57 AM [facility] Blood BLOOD SPECIMEN / Unknown Lab Venipuncture / Unknown 08/05/2024 1:02 AM RUBY ENGINEER 08/05/2024 3:37 AM CDT us Marianne Daniels MD LAB - HEMATOLOGY ORDERABLES Lulu coley Result [facility] [address] [place] [address], [facility] [phone] * (ABNORMAL) RENAL FUNCTION PANEL (08/05/2024 1:02 AM RUBY ENGINEER) Only the most recent of3 resultswithin the time period is included. BUN 16 7 - 26 mg/dL 08/05/2024 4:02 AM [facility] Creatinine 0.63(L) 0.71 - 1.16 mg/dL 08/05/2024 4:02 AM [facility] Sodium 140 136 - 145 mmol/L 08/05/2024 4:02 AM [facility] Potassium 4.0 3.5 - 4.5 mmol/L 08/05/2024 4:02 AM [facility] Chloride 107 98 - 107 mmol/L 08/05/2024 4:02 AM [facility] CO2 24 22 - 29 mmol/L 08/05/2024 4:02 AM [facility] Glucose 79 70 - 99 mg/dL 08/05/2024 4:02 AM [facility] Albumin 3.3(L) 3.4 - 5.0 g/dL 08/05/2024 4:02 AM [facility] Calcium 8.9 8.4 - 10.2 mg/dL 08/05/2024 4:02 AM [facility] Phosphorus 3.6 2.8 - 5.1 mg/dL 08/05/2024 4:02 AM [facility] Anion Gap 9 6 - 16 08/05/2024 4:02 AM [facility] BUN/Creatinine Ratio 25(H) 7 - 23 08/05/2024 4:02 AM [facility] Osmolality Calculated 290 275 - 295 mOsm/kg 08/05/2024 4:02 AM [facility] eGFR by CKD-EPI >90 >=90 mL/min/1.7 3 m2 08/05/2024 4:02 AM [facility] Blood BLOOD SPECIMEN / Unknown Lab Venipuncture / Unknown 08/05/2024 1:02 AM RUBY ENGINEER 08/05/2024 3:37 AM CDT Lowell Cao DO LAB - CHEMISTRY ORDERABLES Fin al Result Performing Organization Address City/[facility]/ZIP Co de Phone Number [facility] [address] [place] [address], [place] [phone] * MAGNESIUM BLOOD (08/05/2024 1:02 AM RUBY ENGINEER) Only the most recent of5 resultswithin the time period is included. Magnesium 1.9 1.6 - 2.6 mg/dL 08/05/2024 4:02 AM CDT [facility] Blood BLOOD SPECIMEN / Unknown Lab Venipuncture / Unknown 08/05/2024 1:02 AM RUBY ENGINEER 08/05/2024 3:37 AM CDT Lowell Johnson Cao DO LAB - CHEMISTRY ORDERABLES Fin al Result Performing Organization Address City/[facility]/ZIP Co de Phone Number [address] [address], [place] [phone] * PSA FREE + TOTAL PANEL (08/04/2024 12:12 PM RUBY ENGINEER) PSA Total 1.7 0.0 - 4.0 ng/mL 08/04/2024 1:33 PM [facility] PSA Free 0.21 0.00 - 0.50 ng/mL 08/04/2024 1:33 PM [facility] PSA % Free 12 See Comment % 08/04/2024 1:33 PM [facility] Comment: [facility] Clinical Laboratory uses the Mancia Barrel Cutter method for Total and Free PSA measurements. [...] Free and/or Total PSA alone. Distribution of LOWERATOR OPERATOR % Free PSA Values for specimens with LOWERATOR OPERATOR Total PSA values between 4.0 and 10.0 ng/mL: % Free PSA Ranges <10.0 10.0-15.0 15.0-20.0 20.0-26.0 >26.0 Number of ----- --------- --------- --------- ----- Subjects Biopsy --------- ------ Negative 307 9.4 22.5 25.4 24.8 17.9 Positive 123 27.6 30.9 17.9 15.4 8.1 PSA % Free 08/04/2024 1:33 PM RUBY ENGINEER [facility] Blood BLOOD SPECIMEN / Unknown Lab Venipuncture / Unknown 08/04/2024 12:12 PM RUBY ENGINEER 08/04/2024 12:42 PM RUBY ENGINEER Marianne Daniels MD LAB - CHEMISTRY ORDERABLES Final Result [address] [address] [phone] * (ABNORMAL) CULTURE URINE (08/03/2024 8:53 AM RUBY ENGINEER) Only the most recent of2 resultswithin the time period is included. Culture Urine 50,000-100,000 CFU/mL Pseudomonas aeruginosa(A) JELLY 08/07/2024 6:04 AM [facility] MICROBIOLOGY Comment:This is an appended report. These results have been appended to a previously final verified report. Culture Urine 50,000-100,000 CFU/mL Corynebacterium striatum(A) JELLY 08/07/2024 6:04 AM [facility] [employer] MICROBIOLOGY Comment:This is an appended report. These results have been appended to a previously final verified report. Culture Urine 50,000-100,000 CFU/mL Providencia stuartii(A) JELLY 08/07/2024 6:04 AM [facility] [employer] MICROBIOLOGY Urine URINE SPECIMEN OBTAINED BY CLEAN CATCH PROCEDURE / Unknown Collection / Unknown 08/03/2024 8:53 AM RUBY ENGINEER 08/03/2024 8:56 AM RUBY ENGINEER Narrative Organism Antibiotic Method Susceptibility Pseudomonas aeruginosa [...] JELLY 4 ug/mL: Susceptible Providencia stuartii Cefepime EJLLY <=1 ug/mL: Susceptible Providencia stuartii Ceftriaxone JELLY <=1 ug/mL: Susceptible Providencia stuartii Ciprofloxacin JELLY <=0.25 ug/mL: Susceptible Providencia stuartii Meropenem JELLY <=0.25 ug/mL: Susceptible Providencia stuartii Piperacillin-tazobactam JELLY <=4 ug/mL: Susceptible Providencia stuartii Trimethoprim-sulfam ethoxazo le JELLY <=20 ug/mL: Susceptible Marianne Daniels MD LAB - MICROBIOLOGY ORDERABLES Ed ited Result - Final [facility] MICROBIOLOGY [address] [place] [address], [facility] [phone] * HEMOGLOBIN A1C (08/03/2024 5:18 AM [facility]) [facility] Hemoglobin A1c 5.3 <=5.6 % 08/03/2024 8:24 AM [facility] Estimated Average Glucose 105 mg/dL 08/03/2024 8:24 AM [facility] Comment: HbA1c Interpretation: Normal : < 5.7% Pre-diabetes: 5.7-6.4% Diabetes: Equal to or greater than 6.5% Test results diagnostic of diabetes should be repeated for confirmation. Treatment target values recommended by ADA and other clinical organizations should be used to evaluate metabolic control in patients. Reference: [place] [employer], Standards of Care in Diabetes -2020 In patients 70 years and older consider HbA1c target range of 7.0-7.5% (Reference: Lukas Matamoros et al. JAMDA. 2012) The Sebia assay for the measurement of HbA1c is a National Glycohemoglobin Standardization Program (NGSP) certified method. Blood BLOOD SPECIMEN / Unknown Venipuncture / Unknown 08/03/2024 5:18 AM RUBY ENGINEER 08/03/2024 5:24 AM RUBY ENGINEER Lowell Cao DO LAB - CHEMISTRY ORDERABLES Fin al Result [facility] [address] [place] [address], [place] [phone] * TYPE + SCREEN PANEL (08/02/2024 9:53 PM RUBY ENGINEER) Antibody Screen NEG 10:41 PM RUBY ENGINEER [facility] B[facility]OD [facility] LAB ABO Rh O POS 08/02/2024 10:41 PM RUBY ENGINEER [facility] Blood Bank BLOOD SPECIMEN / Unknown Venipuncture / Unknown 08/02/2024 9:53 PM RUBY ENGINEER 08/02/2024 10:05 PM RUBY ENGINEER us Elmo Johnson MD LAB - BLOOD BANK ORDERABLES F inal Result Performing Organization Address [facility]/ZIP Co de Phone Number [facility]OD [facility] LAB [address] [place] [address], [facility] [phone] * CT Chest Abdomen Pelvis W Cont (08/02/2024 9:42 PM RUBY ENGINEER) Only the most recent of2 resultswithin the time period is included. Anatomical Region Laterality Modality Chest, Abdomen, Pelvis Computed Tomography 08/02/2024 9:56 PM RUBY ENGINEER Impressions 08/02/2024 11:19 PM RUBY ENGINEER Impression: 1.Trace left-sided pleural effusion, bilateral dependent [...] cystitis. > Dictated by Justin Burrell MD (logistics vice president). I, Bebo Kuo MD have personally reviewed and interpreted this examination/study. > Interpreting Provider: Bebo Kuo MD on 08/02/2024 11:19 PM Narrative 08/02/2024 11:19 PM RUBY ENGINEER PROCEDURE: CT CHEST ABDOMEN PELVIS W CONT, DATE/TIME OF EXAM: 08/02/2024 9:43 PM, LOCATION [facility] INDICATION: R11.0: Nausea without vomiting ADDITIONAL [...] DATE/TIME OF EXAM: 08/02/2024 9:43 PM, LOCATION [facility] INDICATION: R11.0: Nausea without vomiting ADDITIONAL [...] cystitis. > Dictated by Justin Burrell MD (logistics vice president). Bebo Thomason MD have personally reviewed and interpreted this examination/study. > Interpreting Provider: Bebo Kuo MD on 511:19 PM us Elmo Johnson MD CT ORDERABLES Final Result * XR CHEST 1VW PORTABLE (08/02/2024 5:15 PM RUBY ENGINEER) Only the most recent of4 resultswithin the time period is included. Anatomical Region Laterality Modality Chest Digital Radiogra phy 08/02/2024 5:27 PM RUBY ENGINEER Narrative 08/03/2024 9:31 AM RUBY ENGINEER PROCEDURE: XR CHEST 1VW PORTABLE, DATE/TIME OF EXAM: 08/02/2024 5:15 PM, LOCATION [facility] INDICATION: R11.0: Nausea without vomiting ADDITIONAL [...] abnormality. > Dictated by Meeta Leblanc MD (logistics vice president) Ramon Thomason MD have personally reviewed and interpreted this examination/study. > Interpreting Provider: Ramon Ross MD on 08/03/2024 9:31 AM Procedure Note Ramon Ross MD - 08/03/2024 PROCEDURE: XR CHEST 1VW PORTABLE, DATE/TIME OF EXAM: 08/02/2024 5:15 PM, LOCATION [facility] INDICATION: R11.0: Nausea without vomiting ADDITIONAL [...] osseousabnormality. > Dictated by Meeta Leblanc MD (logistics vice president) I, Ramon Ross MD have personally reviewed and interpreted this examination/study. > Interpreting Provider: Ramon Ross MD on 08/03/2024 9:31 AM Elmo Johnson MD DIAGNOSTIC IMAGING ORDERABLES Final Result * (ABNORMAL) URINALYSIS REFLEX TO MICROSCOPIC NO CULTURE (08/02/2024 5:08 PM RUBY ENGINEER) Color UA Yellow Yellow, Straw 08/02/2024 5:46 PM [facility] Clarity UA Turbid(A) Clear 08/02/2024 5:46 PM [facility] Glucose UA Normal Normal 08/02/2024 5:46 PM [facility] Bilirubin UA Negative Negative 08/02/2024 5:46 PM [facility] Ketone UA Negative Negative 08/02/2024 5:46 PM [facility] Specific Whiting UA 1.015 1.005 - 1.030 08/02/2024 5:46 PM [facility] Blood UA Negative Negative 08/02/2024 5:46 PM [facility] pH UA 7.0 5.0 - 9.0 pH 08/02/2024 5:46 PM [facility] Protein UA Trace(A) Negative 08/02/2024 5:46 PM [facility] Urobilinogen UA 3.0(A) Normal mg/dL 08/02/2024 5:46 PM [facility] Nitrite UA Positive(A) Negative 08/02/2024 5:46 PM [facility] Leukocyte UA 500 NOEL/uL(A) Negative 08/02/2024 5:46 PM [facility] RBC UA 11-20(A) 0 - 5 # /hpf 08/02/2024 5:46 PM [facility] WBC UA >100(A) 0 - 5 # /hpf 08/02/2024 5:46 PM [facility] Bacteria UA 1+(A) None Seen 08/02/2024 5:46 PM [facility] Squamous Epithelial Cells None Seen 0 - 5 /hpf 08/02/2024 5:46 PM [facility] Urine URINE SPECIMEN OBTAINED BY SINGLE CATHETERIZATION OF URINARY BLADDER / Unknown Collection / Unknown 08/02/2024 5:08 PM RUBY ENGINEER 08/02/2024 5:11 PM RUBY ENGINEER us Elmo Johnson MD LAB - URINALYSIS ORDERABLES F inal Result [facility] [address] [place] [address], [facility] [phone] * (ABNORMAL) CBC W AUTO DIFFERENTIAL (08/02/2024 5:08 PM RUBY ENGINEER) Only the most recent of7 resultswithin the time period is included. WBC 8.4 4.0 - 10.7 x10E9/L 08/02/2024 5:22 PM [facility] RBC Count 4.27(L) 4.30 - 5.80 x10E12/L 08/02/2024 5:22 PM [facility] Hemoglobin 13.6 13.3 - 17.5 g/dL 08/02/2024 5:22 PM [facility] Hematocrit 41.1 38.7 - 51.1 % 08/02/2024 5:22 PM [facility] MCV 96.3 80.0 - 98.0 fL 08/02/2024 5:22 PM [facility] MCH 31.9 26.7 - 33.6 pg 08/02/2024 5:22 PM [facility] MCHC 33.1 31.7 - 36.3 g/dL 08/02/2024 5:22 PM [facility] RDW-CV 13.2 11.3 - 14.8 % 08/02/2024 5:22 PM [facility] Platelet Count 250 150 - 420 x10E9/L 08/02/2024 5:22 PM [facility] MPV 13.0(H) 7.8 - 11.4 fL 08/02/2024 5:22 PM [facility] Neutrophil % 68.1 41.0 - 74.0 % 08/02/2024 5:22 PM [facility] Lymphocyte % 22.2 17.0 - 47.0 % 08/02/2024 5:22 PM [facility] Monocyte % 6.8 3.0 - 11.0 % 08/02/2024 5:22 PM [facility] Eosinophil % 2.3 0.0 - 7.0 % 08/02/2024 5:22 PM [facility] Basophil % 0.4 0.0 - 1.6 % 08/02/2024 5:22 PM [facility] Immature Granulocytes % 0.2 0.0 - 1.0 % 08/02/2024 5:22 PM [facility] Neutrophil Absolute 5.70 1.60 - 7.50 x10E9/L 08/02/2024 5:22 PM [facility] Lymphocyte Absolute 1.86 1.00 - 4.40 x10E9/L 08/02/2024 5:22 PM [facility] Monocyte Absolute 0.57 0.15 - 1.00 x10E9/L 08/02/2024 5:22 PM [facility] Eosinophil Absolute 0.19 0.00 - 0.60 x10E9/L 08/02/2024 5:22 PM [facility] Basophil Absolute 0.03 0.00 - 0.13 x10E9/L 08/02/2024 5:22 PM [facility] Blood BLOOD SPECIMEN / Unknown Venipuncture / Unknown 08/02/2024 5:08 PM RUBY ENGINEER 08/02/2024 5:14 PM [facility] us Elmo Johnson MD LAB - HEMATOLOGY ORDERABLES F inal Result Performing Organization Address City/State/[facility] Co de Phone Number [facility] [address] [place] [phone], [facility] [phone] * (ABNORMAL) COMPREHENSIVE METABOLIC PANEL (08/02/2024 5:08 PM RUBY ENGINEER) Only the most recent of5 resultswithin the time period is included. BUN 14 7 - 26 mg/dL 08/02/2024 5:44 PM [facility] Creatinine 0.57(L) 0.71 - 1.16 mg/dL 08/02/2024 5:44 PM [facility] Sodium 140 136 - 145 mmol/L 08/02/2024 5:44 PM [facility] Potassium 4.5 3.5 - 4.5 mmol/L 08/02/2024 5:44 PM [facility] Chloride 105 98 - 107 mmol/L 08/02/2024 5:44 PM [facility] CO2 25 22 - 29 mmol/L 08/02/2024 5:44 PM [facility] Glucose 102(H) 70 - 99 mg/dL 08/02/2024 5:44 PM [facility] Calcium 9.6 8.4 - 10.2 mg/dL 08/02/2024 5:44 PM [facility] Protein Total 7.6 6.0 - 8.3 g/dL 08/02/2024 5:44 PM [facility] Albumin 3.8 3.4 - 5.0 g/dL 08/02/2024 5:44 PM [facility] Bilirubin Total 0.4 0.2 - 1.2 mg/dL 08/02/2024 5:44 PM [facility] Alkaline Phosphatase 94 40 - 150 U/L 08/02/2024 5:44 PM [facility] ALT 14 5 - 55 U/L 08/02/2024 5:44 PM [facility] AST 25 5 - 34 U/L 08/02/2024 5:44 PM [facility] Anion Gap 10 6 - 16 08/02/2024 5:44 PM [facility] BUN/Creatinine Ratio 25(H) 7 - 23 08/02/2024 5:44 PM [facility] Osmolality Calculated 291 275 - 295 mOsm/kg 08/02/2024 5:44 PM [facility] Albumin/Globulin Ratio 1.0(L) 1.1 - 2.3 08/02/2024 5:44 PM [facility] eGFR by CKD-EPI >90 >=90 mL/min/1.7 3 m2 08/02/2024 5:44 PM [facility] Blood BLOOD SPECIMEN / Unknown Venipuncture / Unknown 08/02/2024 5:08 PM RUBY ENGINEER 08/02/2024 5:14 PM [facility] us Elmo Johnson MD LAB - CHEMISTRY ORDERABLES Fi nal Result Performing Organization Address City/[facility]/ZIP Co de Phone Number [address] [address], [facility] [phone] * LIPASE BLOOD (08/02/2024 5:08 PM RUBY ENGINEER) Only the most recent of4 resultswithin the time period is included. [facility] Lipase 18 8 - 78 U/L 08/02/2024 5:44 PM RUBY ENGINEER [facility] Blood BLOOD SPECIMEN / Unknown Venipuncture / Unknown 08/02/2024 5:08 PM RUBY ENGINEER 08/02/2024 5:14 PM RUBY ENGINEER Narrative [facility] - 08/02/2024 5:44 PM RUBY ENGINEER Lipase results from the [employer] Alinity analyzer may not be comparable with other methodologies. Elmo Johnson MD LAB - CHEMISTRY ORDERABLES Fi nal Result Performing Organization Address [facility] Co de Phone Number [address] [address], [facility] [phone] * TROPONIN-I HIGH SENSITIVE BASELINE + 1HR (07/27/2024 6:26 PM RUBY ENGINEER) Only the most recent of2 resultswithin the time period is included. [facility] Troponin I High Sensitive 5 <=35 ng/L 07/27/2024 7:09 PM RUBY ENGINEER [facility] Blood BLOOD SPECIMEN / Unknown Venipuncture / Unknown 07/27/2024 6:26 PM RUBY ENGINEER 07/27/2024 6:37 PM RUBY ENGINEER Serjio Vilchis MD LAB - CHEMISTRY ORDERABLES Final Result Performing Organization Address [facility]/ZIP Co de Phone Number [address] [address], [facility] [phone] * EKG 12-LEAD (07/27/2024 5:34 PM RUBY ENGINEER) [facility] Ventricular Rate 84 BPM [facility] MUSE Atrial Rate 84 BPM [facility] MUSE P-R Interval 160 ms [facility] MUSE QRS Duration ms 76 ms [facility] Q-T Interval ms 364 ms [facility] QTC Calculation (Bezet) 430 ms [facility] Calculated P [place] 49 degrees [facility] Calculated R [place] -25 degrees [facility] Calculated T [place] 56 degrees [facility] Interpretation EKG NORMAL SINUS RHYTHM SEPTAL INFARCT , AGE UNDETERMINED INFERIOR INFARCT , AGE UNDETERMINED ABNORMAL ECG WHEN COMPARED WITH ECG OF 19-FEB-2024 17:27, SEPTAL INFARCT IS NOW PRESENT INFERIOR INFARCT IS NOW PRESENT Confirmed by MD ABENA, CLEMENTE ([id number]) on 07/30/2024 2:44:30 PM [facility] MUSE 07/27/2024 5:34 PM RUBY ENGINEER 07/30/2024 2:44 PM RUBY ENGINEER us Serjio Vilchis MD ECG ORDERABLES Edited Result - Final [facility] MUSE * PATHOLOGY TISSUE (07/18/2024 4:27 PM RUBY ENGINEER) Case Report Surgical Pathology Report Case: [id number] Authorizing Provider: Clifton Trinh, Collected: 07/18/2024 04:27 PM Ordering Location: [facility] ENDOSCOPY Received: 07/19/2024 10:00 AM Pathologist: aMra Pascual MD Specimen: Gastric, Gastric Antrum Biopsies [...] [facility] Pathologist Location at [facility] 07/20/2024 3:51 PM [facility] Disclaimer The performance characteristics of all immunohistochemical and indirect immunofluorescence stains (if any) cited in this report were determined by the Histopathology Laboratory of [facility]. Some of these tests were developed [...] CONTENTS SPECIMEN / Unknown 07/18/2024 4:27 PM RUBY ENGINEER 07/19/2024 10:00 AM RUBY ENGINEER Comment:Pre-op diagnosis: Coffee ground emesis [K92.0] Clifton Alejandra MD LAB - PATHOLOGY/CYTO LOGY ORDERABLES Final Result [facility] [address] [place] [address], [facility] [phone] * EGD (07/18/2024 3:52 PM RUBY ENGINEER) Report Endoscopy POC Endoscopy Department Report __ [...] entire procedure. Procedure Code(s): --- Professional --- 39880, Esophagogastroduode noscopy, flexible, transoral; with biopsy, single or multiple Diagnosis Code(s): --- Professional --- K31.89, Other diseases of stomach and duodenum K92.1, Melena (includes Hematochezia) CPT copyright 2021 [employer]. All rights reserved. The codes documented in this report are preliminary and upon solderer assembly repair review may be revised to meet current compliance requirements. Clifton Alejandra MD 07/18/2024 4:45:03 PM Note Initiated On: 07/18/2024 3:52 PM Number of Addenda: [phone] [place] [address] [facility] 07/18/2024 3:52 PM RUBY ENGINEER us Aaron Delgado III, MD GI PROCEDURE ORDERABLES Edited Result - Final Performing Organization Address City/[facility]/ZIP Co de Phone Number [facility] * PHOSPHORUS BLOOD (07/18/2024 8:07 AM RUBY ENGINEER) Phosphorus 4.2 2.8 - 5.1 mg/dL 07/18/2024 8:52 AM RUBY ENGINEER [facility] Blood BLOOD SPECIMEN / Unknown Lab Venipuncture / Unknown 07/18/2024 8:07 AM RUBY ENGINEER 07/18/2024 8:24 AM RUBY ENGINEER us Marianne Daniels MD LAB - CHEMISTRY ORDERABLES Final Result Performing Organization Address [facility]/ZIP Co de Phone Number [address] [address], [place] [phone] * VALPROIC ACID LEVEL (07/18/2024 8:07 AM RUBY ENGINEER) Valproic Acid Total 74 50 - 100 ug/mL 07/18/2024 8:41 AM RUBY ENGINEER [facility] Blood BLOOD SPECIMEN / Unknown Lab Venipuncture / Unknown 07/18/2024 8:07 AM RUBY ENGINEER 07/18/2024 8:19 AM RUBY ENGINEER us Marianne Daniels MD LAB - CHEMISTRY ORDERABLES Final Result Performing Organization Address City/[facility]/ZIP Co de Phone Number [address] [address], [place] [phone] * CARDIAC EKG ORDER (07/17/2024 1:44 PM RUBY ENGINEER) Narrative 07/17/2024 1:44 PM RUBY ENGINEER Ordered by an unspecified provider. us Scanned Document CARDIAC SERVICES ORDERABLES Fin al Result * (ABNORMAL) URINE MICROSCOPIC ONLY REFLEX TO CULTURE (07/17/2024 9:58 AM RUBY ENGINEER) Reflex Status Culture to follow 07/17/2024 10:42 AM [facility] WBC UA 21-50(A) None Seen, 0-5 /HPF 07/17/2024 10:42 AM [facility] Bacteria UA 1+(A) None /HPF 07/17/2024 10:42 AM [facility] Squamous Epithelial Cells UA None Seen None Seen, 0-2, 3-5 /HPF 07/17/2024 10:42 AM [facility] Urine URINE SPECIMEN OBTAINED BY CLEAN CATCH PROCEDURE / Unknown Collection / Unknown 07/17/2024 9:58 AM RUBY ENGINEER 07/17/2024 10:02 AM [facility] Narrative [facility] - 07/17/2024 10:42 AM RUBY ENGINEER Quan Gan MD LAB - URINALYSIS ORDERABLES Lulu coley Result Performing Organization Address [facility]/State/ZIP Co de Phone Number [facility] [address] [place] [phone], [facility] [phone] * (ABNORMAL) URINALYSIS REFLEX MICROSCOPIC REFLEX CULTURE (07/17/2024 9:58 AM RUBY ENGINEER) Color UA Yellow Straw, Yellow 07/17/2024 10:36 AM [facility] Clarity UA Slt Cloudy(A) Clear 07/17/2024 10:36 AM [facility] Specific Whiting UA 1.027 1.005 - 1.030 07/17/2024 10:36 AM [facility] pH UA 8.0 5.0 - 8.0 pH 07/17/2024 10:36 AM [facility] Protein UA 1+(A) Negative 07/17/2024 10:36 AM [facility] Glucose UA Negative Negative 07/17/2024 10:36 AM [facility] Ketone UA Negative Negative 07/17/2024 10:36 AM [facility] Bilirubin UA Negative Negative 07/17/2024 10:36 AM [facility] Blood UA Negative Negative 07/17/2024 10:36 AM [facility] Nitrite UA Positive(A) Negative 07/17/2024 10:36 AM [facility] Leukocyte Esterase 1+(A) Negative 07/17/2024 10:36 AM [facility] Urobilinogen UA 4.0(A) Negative mg/dL 07/17/2024 10:36 AM [facility] Urine URINE SPECIMEN OBTAINED BY CLEAN CATCH PROCEDURE / Unknown Collection / Unknown 07/17/2024 9:58 AM RUBY ENGINEER 07/17/2024 10:02 AM [facility] Narrative [facility] - 07/17/2024 10:36 AM RUBY ENGINEER Quan Gan MD LAB - URINALYSIS ORDERABLES Lulu l Result [address] [address], [place] [phone] * TROPONIN-I HIGH SENSITIVE REFLEX 1HOUR (07/17/2024 12:03 AM [facility]) Troponin I High Sensitive 7 <=35 ng/L 07/17/2024 12:48 AM [facility] Delta Troponin I HS 0 <6 ng/L 07/17/2024 12:48 AM [facility] Blood BLOOD SPECIMEN / Unknown Venipuncture / Unknown 07/17/2024 12:03 AM RUBY ENGINEER 07/17/2024 12:11 AM RUBY ENGINEER Quan Gan MD LAB - CHEMISTRY ORDERABLES Final Result [address] [address], [place] [phone] * SARS-COV-2 (COVID-19) FLU A/B RSV PCR RAPID (07/17/2024 12:03 AM RUBY ENGINEER) COVID-19 PCR Not detected Not detected 07/17/19 12:51 AM [facility] Influenza A PCR Not detected Not detected 07/17/2024 12:51 AM [facility] Influenza B PCR Not detected Not detected 07/17/2024 12:51 AM [facility] RSV PCR Not detected Not detected 07/17/2024 12:51 AM [facility] Microbiology SPECIMEN FROM NASOPHARYNGEAL STRUCTURE / Unknown Collection / Unknown 07/17/2024 12:03 AM RUBY ENGINEER 07/17/2024 12:11 AM RUBY ENGINEER Narrative [facility] - 07/17/2024 12:51 AM RUBY ENGINEER This nucleic acid amplification assay has been [...] request. Quan Gan MD LAB - MICROBIOLOGY ORDERABLES Fi nal Result [facility] [address] [place] [phone], [facility] [phone] * CT Abdomen Pelvis W Contrast (07/16/2024 11:41 PM RUBY ENGINEER) Anatomical Region Laterality Modality Abdomen, Pelvis Computed Tomogra phy 07/17/2024 12:0 2 AM RUBY ENGINEER Impressions 07/17/2024 8:29 AM RUBY ENGINEER Impression: 1.No acute process identified in the [...] obstruction. > Dictated by Ashu Welch MD (logistics vice president). I, Bebo Kuo MD have personally reviewed and interpreted this examination/study. > Interpreting Provider: Bebo Kuo MD on 07/17/2024 8:29 AM Narrative 07/17/2024 8:29 AM RUBY ENGINEER PROCEDURE: CT ABDOMEN PELVIS W CONTRAST, DATE/TIME OF EXAM: 07/16/2024 11:42 PM, LOCATION [facility] INDICATION: R11.2: Nausea and vomiting, unspecified [...] DATE/TIME OF EXAM: 07/16/2024 11:42 PM, LOCATION [facility] INDICATION: R11.2: Nausea and vomiting, unspecified [...] obstruction. > Dictated by Ashu Welch MD (logistics vice president). I, Bebo Kuo MD have personally reviewed and interpreted this examination/study. > Interpreting Provider: Bebo Kuo MD on 58:29 AM Quan Gan MD CT ORDERABLES Final Result * LACTIC ACID BLOOD REFLEX TO REPEAT (07/16/2024 10:44 PM RUBY ENGINEER) Lactic Acid-Stat 1.9 <=2.0 mmol/L 07/16/2024 11:19 PM RUBY ENGINEER [facility] Blood BLOOD SPECIMEN / Unknown Venipuncture / Unknown 07/16/2024 10:44 PM RUBY ENGINEER 07/16/2024 10:52 PM RUBY ENGINEER Result [facility] Quan Gan MD LAB - CHEMISTRY ORDERABLES Final Result [address] [address], [place] [phone] * CK BLOOD (07/16/2024 10:44 PM RUBY ENGINEER) [facility] CK Total 92 30 - 200 U/L 07/16/2024 11:23 PM RUBY ENGINEER [facility] Blood BLOOD SPECIMEN / Unknown Venipuncture / Unknown 07/16/2024 10:44 PM RUBY ENGINEER 07/16/2024 10:52 PM RUBY ENGINEER Result [facility] Quan Gan MD LAB - CHEMISTRY ORDERABLES Final Result Performing Organization Address [facility] Co de Phone Number [address] [address], [place] [phone] * HEPATITIS C AB SCREEN RFLX NAAT QUANT (09/01/2022 2:05 AM CDT) [facility] Hepatitis C Antibody Non-react phan Non-reac tive 09/01/2022 3:09 AM CDT [facility] Comment:Hepatitis C Antibody screen indicates [...] 2:05 AM CDT 09/01/2022 2:15 AM CDT Result [facility] Artemio Abarca MD LAB - CHEMISTRY ORDERABLES Fin al Result Performing Organization Address [facility]/ZIP Co de Phone Number [address] [address], [place] [phone] * HIV-1 HIV-2 ANTIBODY + HIV P24 AG PANEL (09/01/2022 2:05 AM CDT) HIV Antigen/Antibod y 1 & 2 Non-reacti ve Non-react phan 09/01/2022 3:09 AM CDT [facility] Comment:No Laboratory eviden ce of HIV infection. 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 Source: [facility]. 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
--- OUTSIDE RECORDS SUMMARY | 2024-09-16 07:17 | XMS_ITS | Clinical Summary ---
Author Organization [facility] Address [address] [place] [address] Care Team Providers Care Pick Up Name Role Phone Marielena Smallwood MD Primary [...] 06/28/2024 Assessment & Plan (06/28/2024 11:42 AM MUTUAL FUNDS AGENT): Now back on full TF's sugars running mildly high. Monitor with q4 accuchecks and SSI. Hypophosphatemia 06/27/2024 Assessment & Plan (06/28/2024 11:44 AM MUTUAL FUNDS AGENT): <0.7 ? 2/2 refeeding syndrome. Started on neutraphos 2pkg QID 06/26. Still Phos<0.7 06/27. Tx with IV NaPhos 30mmoles and cont per tube replacement and monitor closely. -06/28: Phos=3.3, reduce nuetraphos to 1 PKG BID and monitor History of DVT (deep vein thrombosis) 06/26/2024 Assessment & Plan (06/26/2024 1:32 PM MUTUAL FUNDS AGENT): -On anticoagulation with Eliquis 5 mg po BID for hx of DVT -per chart review hx of Left Subclavian vein DVT diagnosed 08/01/23 H/O: GI bleed 06/25/2024 Assessment & Plan (06/26/2024 1:32 PM MUTUAL FUNDS AGENT): - recent admission at [facility] ( 06-07-24 [...] 06/25/2024 Assessment & Plan (06/26/2024 1:36 PM MUTUAL FUNDS AGENT): Tracheostomy dependence, has a Shiley #4 cuffed. Pt followed at [facility], per notes trach in place for pulmonary toilet due to his copious secretions and ongoing aspiration of his secretions. -needing frequent suctioning -sats stable on 28% FIO2 by HHTC -Was getting VEST at [facility] Low grade fever 06/20/2024 Assessment & Plan (06/26/2024 1:34 PM MUTUAL FUNDS AGENT): Low-grade fever and tachycardia, softer BP after [...] 06/17/2024 Assessment & Plan (06/28/2024 11:43 AM MUTUAL FUNDS AGENT): -patient at admission with a G tube, was getting continous tube feedings at [facility] and not tolerating, -was changed to bolus [...] tube fell off and pt had 18 [place] G tube placed at [facility] ED on 04/21/24 (records on care everywhere)and after that he has not tolerated well tube feedings per discussion with his sister Ms Hilliard,Adriane [phone] POA - consulted IR 06-20-24 for conversion [...] goal 06/25, adjust FWF per hydration status, dumper operator to follow up -On full TF's-osmolite 1.5. Phos repleted. Copious oral secretions 06/13/2024 Assessment & Plan (06/26/2024 1:29 PM MUTUAL FUNDS AGENT): Patient on chronic glycopyrrolate due to secretions, held at admission 2/ to potential for constipation with plan to add back when he's had a bowel movements -resume on 06-19- hold on 06-20 due to somnolence. Suction PRN - restart glycopyrrolate 1mg BID 06/26 and monitor Abdominal pain 06/12/2024 Assessment & Plan (06/26/2024 1:23 PM MUTUAL FUNDS AGENT): -p/w abdominal distention from SNF to ED on 06-12 ,reported biliary emesis per senior living (approximately 300 cc) , not associated fevers or change in bowel habits. Feeding tube placed to gravity drainage in ED H&P notes regular bowel movements. CT scan on 06-12 in ED with stool in the rectum and sigmoid. [place] likely constipation contributing to the patient's abdominal [...] 06/12/2024 Assessment & Plan (06/26/2024 12:08 AM MUTUAL FUNDS AGENT): Complicated by left LE AKA. History of CVA (cerebrovascular accident) 2020 Assessment & Plan (06/26/2024 1:32 PM MUTUAL FUNDS AGENT): - hx of RT parietal CVA- hx of dementia Cont asa and statin Essential hypertension 12/11/2020 Assessment & Plan (06/26/2024 1:30 PM MUTUAL FUNDS AGENT): - on metoprolol and norvasc, held with soft BP 06-19 - resume metoprolol 06-21 -resume amlodipine 06-22 - Monitor Hyperlipidemia 12/11/2020 Assessment & Plan (06/12/2024 3:47 PM MUTUAL FUNDS AGENT): - Continue home statin Seizure 12/10/2020 Assessment & Plan (06/26/2024 1:36 PM MUTUAL FUNDS AGENT): History of seizure disorder secondary to traumatic brain injury. Currently on valproate, Vimpat, Keppra and Cobazam - Continue home medication, valproate level low at admit 48 on 06-12, 48 on 06-13, Valproic acid level 76 06-19 prior to dose, lacosamide level 1.4 on 06/12, 9.6 on 06-19 Followed by Neurology at [facility] Cognitive communication deficit 08/25/2020 Cerebrovascular accident [...] Department Care Team Description 07/09/2024 7:23 PM MUTUAL FUNDS AGENT - 07/09/2024 11:59 PM MUTUAL FUNDS AGENT Hospital Encounter [facility] [address] [place] [address] Discharge Disposition: Discharge to home or self care 07/08/2024 7:52 PM MUTUAL FUNDS AGENT - 07/09/2024 7:[address] [facility] Emergency [facility] Emergency Department [address] [place] [address] Tri Martinez MD Thomas, Jenna Marie, MD Tracheostomy complication, unspecified complication type (HCC) (Primary Dx); Balanitis Discharge Disposition: Discharge to home or self care 06/12/2024 10:26 AM MUTUAL FUNDS AGENT - 06/28/2024 5:25 PM MUTUAL FUNDS AGENT Hospital Encounter [facility] [address] [place] [address] Shakila Jung MD Choi, Cheuk Ho Jeffrey, [...] h recurrent seizures (HCC) Followed up at [facility] ([facility]) Degenerative cervical spinal stenosis Family History Medical History Relation Name Comments Coronary artery disease Father Stroke Father Hypertension Mother Relation Name Status Comments Father Mother Social History Tobacco Use Types Packs/Day Years Used Date Smoking Tobacco: Former Cigarettes Smokeless Tobacco: Current Tobacco Cessation:Counseling Given: Yes [facility] Utilities Answer Date Recorded In [...] often do you attend chur ch or protestant services? Never 06/18/2024 Do you belong to any clubs o r organizations such as mandaen groups, unions, fraternal or athletic groups, or [...] any time in the past 12 m [facility], were you homeless or living in a long-term (including now)? No 06/18/2024 Personal Safety Answer Date Recorded Have you ever been in or are you currently in a harmful physical or emotional relationship or is someone making you feel afraid or unsafe? Denies 07/08/2024 Sex and Gender Information Value Date Recorded Sex Assigned at Not on file Legal Sex Male 6:11 AM MUTUAL FUNDS AGENT Gender Identity Not on file Sexual Orientation Not on file Obstetrics History Last Filed Vital Signs Vital Sign Reading Time Taken Comments Blood Pressure 145/83 07/09/2024 6:00 AM MUTUAL FUNDS AGENT Pulse 91 07/09/2024 6:00 AM MUTUAL FUNDS AGENT Temperature 36.5 C (97.7 F) 07/09/2024 6:31 AM MUTUAL FUNDS AGENT Respiratory Rate 10 07/09/2024 6:00 AM MUTUAL FUNDS AGENT Oxygen Saturation 100% 07/09/2024 6:00 AM MUTUAL FUNDS AGENT Inhaled Oxygen Concentration - - Weight 79.8 kg (176 lb) 07/09/2024 2:16 AM MUTUAL FUNDS AGENT Height 182.9 cm (6') 07/09/2024 2:16 AM MUTUAL FUNDS AGENT Body Mass Index 23.87 07/09/2024 2:16 AM MUTUAL FUNDS AGENT Plan of Treatment Health Maintenance Due Date Last Done Comments Albumin Creatinine Ratio, Urine 1961 Colon Cancer Screening-Colonoscopy 1961 Prostate Cancer Screening-PSA 1961 Dilated Eye Exam 1961 Foot Exam 1961 Hepatitis B Screening 1979 Regular Well Visit/Exam 18-64 1979 Zoster Vaccine (1 of 2) 2011 Pneumococcal vaccine <65 (2 of 2 - PCV) 02/03/2017 02/04/2016, 08/13/2015, 02/07/2015 Covid-19 Vaccine ( - 2023-2 5 season) 2024 04/06/2021, 07/02/2020, 06/11/2020 Influenza Vaccine (Season Ended) 2025 02/01/2022, 03/16/2021, 03/07/2020, Additional history exists Hemoglobin A1C [...] COMMUNITY SCREENING-ISSA ELIGIBLE STAT 07/09/2024 5:32 AM MUTUAL FUNDS AGENT SEPSIS LACTATE WITH REFLEX Timed 07/09/2024 4:33 AM MUTUAL FUNDS AGENT ED PERIPHERAL LINE INSERTION Routine 07/09/2024 1:18 AM MUTUAL FUNDS AGENT SEPSIS LACTATE WITH REFLEX Timed 07/09/2024 1:15 AM MUTUAL FUNDS AGENT RPR STAT 07/09/2024 1:15 AM MUTUAL FUNDS AGENT N. GONORRHOEAE/C. TRACHOMATIS AMPLIFICATION STAT 07/09/2024 1:02 AM MUTUAL FUNDS AGENT URINALYSIS AND REFLEX TO MICROSCOPIC AND CULTURE STAT 07/09/2024 1:02 AM MUTUAL FUNDS AGENT ED PERIPHERAL LINE INSERTION Routine 07/08/2024 10:[address] CHEST ABDOMEN PELVIS W CONTRAST ED 07/08/2024 9:55 PM MUTUAL FUNDS AGENT EGFR STAT 07/08/2024 8:56 PM MUTUAL FUNDS AGENT DIFFERENTIAL AUTO STAT 07/08/2024 8:5 6 PM MUTUAL FUNDS AGENT SEPSIS LACTATE WITH REFLEX STAT 07/08/2024 8:56 PM MUTUAL FUNDS AGENT LIPASE STAT 07/08/2024 8:56 PM MUTUAL FUNDS AGENT COMPREHENSIVE METABOLIC PANEL STAT 07/08/2024 8:56 PM MUTUAL FUNDS AGENT CBC WITH AUTO DIFFERENTIAL STAT 07/08/2024 8:56 PM MUTUAL FUNDS AGENT RESPIRATORY PATHOGEN PANEL STAT 07/08/2024 8:56 PM MUTUAL FUNDS AGENT ECG 12-LEAD Routine 07/08/2024 8:28 PM MUTUAL FUNDS AGENT XR CHEST 1 VIEW ED 07/08/2024 8:18 PM MUTUAL FUNDS AGENT POCT GLUCOSE DEVICE Routine 06/28/2024 4 :24 PM MUTUAL FUNDS AGENT POCT GLUCOSE DEVICE Routine 06/28/2024 1 2:30 PM MUTUAL FUNDS AGENT POCT GLUCOSE DEVICE Routine 06/28/2024 7 :43 AM MUTUAL FUNDS AGENT POCT GLUCOSE DEVICE Routine 06/28/2024 4 :01 AM MUTUAL FUNDS AGENT POCT GLUCOSE DEVICE Routine 06/27/2024 1 1:28 PM MUTUAL FUNDS AGENT EGFR Routine 06/27/2024 9:30 PM MUTUAL FUNDS AGENT PHOSPHORUS Routine 06/27/2024 9:30 PM MUTUAL FUNDS AGENT MAGNESIUM Routine 06/27/2024 9:30 PM MUTUAL FUNDS AGENT BASIC METABOLIC PANEL Routine 06/27/2024 9:30 PM MUTUAL FUNDS AGENT POCT GLUCOSE DEVICE Routine 06/27/2024 8 :39 PM MUTUAL FUNDS AGENT POCT GLUCOSE DEVICE Routine 06/27/2024 5 :10 PM MUTUAL FUNDS AGENT POCT GLUCOSE DEVICE Routine 06/27/2024 4 :27 PM MUTUAL FUNDS AGENT POCT GLUCOSE DEVICE Routine 06/27/2024 1 :06 PM MUTUAL FUNDS AGENT POCT GLUCOSE DEVICE Routine 06/27/2024 9 :59 AM MUTUAL FUNDS AGENT EGFR Routine 06/26/2024 10:21 PM MUTUAL FUNDS AGENT DIFFERENTIAL AUTO Routine 06/26/2024 10: 21 PM MUTUAL FUNDS AGENT PHOSPHORUS Routine 06/26/2024 10:21 PM MUTUAL FUNDS AGENT MAGNESIUM Routine 06/26/2024 10:21 PM MUTUAL FUNDS AGENT CBC WITH AUTO DIFFERENTIAL Routine 06/26/2024 10:21 PM MUTUAL FUNDS AGENT BASIC METABOLIC PANEL Routine 06/26/2024 10:21 PM MUTUAL FUNDS AGENT HEPATITIS B SURFACE ANTIGEN Routine 06/26/2024 10:21 PM MUTUAL FUNDS AGENT PHOSPHORUS Routine 06/26/2024 3:21 PM MUTUAL FUNDS AGENT RPR Routine 06/26/2024 3:21 PM MUTUAL FUNDS AGENT HEPATITIS C ANTIBODY Routine 06/26/2024 3:21 PM MUTUAL FUNDS AGENT HIV 1/2 ANTIBODY PLUS P24 ANTIGEN Routine 06/26/2024 3:21 PM MUTUAL FUNDS AGENT EGFR Routine 06/26/2024 12:16 AM MUTUAL FUNDS AGENT PHOSPHORUS Routine 06/26/2024 12:16 AM MUTUAL FUNDS AGENT MAGNESIUM Routine 06/26/2024 12:16 AM MUTUAL FUNDS AGENT BASIC METABOLIC PANEL Routine 06/26/2024 12:16 AM MUTUAL FUNDS AGENT POCT GLUCOSE DEVICE Routine 06/23/2024 1 1:36 AM MUTUAL FUNDS AGENT CBC WITHOUT DIFFERENTIAL Timed 06/23/2024 9:07 AM MUTUAL FUNDS AGENT VANCOMYCIN LEVEL TROUGH Routine 06/23/2024 9:00 AM MUTUAL FUNDS AGENT EGFR Routine 06/23/2024 9:00 AM MUTUAL FUNDS AGENT MAGNESIUM Routine 06/23/2024 9:00 AM MUTUAL FUNDS AGENT PHOSPHORUS Routine 06/23/2024 9:00 AM MUTUAL FUNDS AGENT BASIC METABOLIC PANEL Routine 06/23/2024 9:00 AM MUTUAL FUNDS AGENT G TO GJ-TUBE REPLACEMENT IP Routine 06/22/2024 1:24 PM MUTUAL FUNDS AGENT C. DIFFICILE TESTING Routine 06/21/2024 11:11 AM MUTUAL FUNDS AGENT INFECTION PREVENTION VRE CULTURE Routine 06/21/2024 11:10 AM MUTUAL FUNDS AGENT VANCOMYCIN LEVEL TROUGH Timed 06/21/2024 7:16 AM MUTUAL FUNDS AGENT EGFR Routine 06/21/2024 5:03 AM MUTUAL FUNDS AGENT DIFFERENTIAL AUTO Routine 06/21/2024 5:0 3 AM MUTUAL FUNDS AGENT PHOSPHORUS Timed 06/21/2024 5:03 AM MUTUAL FUNDS AGENT MAGNESIUM Routine 06/21/2024 5:03 AM MUTUAL FUNDS AGENT COMPREHENSIVE METABOLIC PANEL Routine 06/21/2024 5:03 AM MUTUAL FUNDS AGENT CBC WITH AUTO DIFFERENTIAL Routine 06/21/2024 5:03 AM MUTUAL FUNDS AGENT MSSA/MRSA (STAPHYLOCOCCUS AUREUS) CULTURE Routine 06/20/2024 10:30 PM MUTUAL FUNDS AGENT XR ABDOMEN AP 1 VIEW IP Routine 06/20/2024 10:29 AM MUTUAL FUNDS AGENT URINALYSIS, MICROSCOPIC ONLY Routine 06/19/2024 9:34 PM MUTUAL FUNDS AGENT URINALYSIS AND REFLEX TO MICROSCOPIC AND CULTURE Routine 06/19/2024 9:34 PM MUTUAL FUNDS AGENT DIFFERENTIAL AUTO Routine 06/19/2024 9:2 8 PM MUTUAL FUNDS AGENT CBC WITH AUTO DIFFERENTIAL Routine 06/19/2024 9:28 PM MUTUAL FUNDS AGENT VALPROIC ACID LEVEL, TOTAL Timed 06/19/2024 9:28 PM MUTUAL FUNDS AGENT LACOSAMIDE Routine 06/19/2024 9:28 PM MUTUAL FUNDS AGENT RESPIRATORY PATHOGEN PANEL Routine 06/19/2024 9:10 PM MUTUAL FUNDS AGENT AEROBIC CULTURE AND GRAM STAIN Routine 06/19/2024 6:53 PM MUTUAL FUNDS AGENT XR CHEST 1 VIEW IP Routine 06/19/2024 6:47 PM MUTUAL FUNDS AGENT RESPIRATORY PATHOGEN PANEL Routine 06/19/2024 6:46 PM MUTUAL FUNDS AGENT XR ABDOMEN AP 1 VIEW IP Routine 06/19/2024 4:09 PM MUTUAL FUNDS AGENT XR CHEST 1 VIEW IP Routine 06/19/2024 4:08 PM MUTUAL FUNDS AGENT EGFR Timed 06/19/2024 2:47 PM MUTUAL FUNDS AGENT DIFFERENTIAL AUTO Timed 06/19/2024 2:4 7 PM MUTUAL FUNDS AGENT PHOSPHORUS Timed 06/19/2024 2:47 PM MUTUAL FUNDS AGENT MAGNESIUM Timed 06/19/2024 2:47 PM MUTUAL FUNDS AGENT COMPREHENSIVE METABOLIC PANEL Timed 06/19/2024 2:47 PM MUTUAL FUNDS AGENT CBC WITH AUTO DIFFERENTIAL Timed 06/19/2024 2:47 PM MUTUAL FUNDS AGENT POCT GLUCOSE DEVICE Routine 06/19/2024 2 :25 PM MUTUAL FUNDS AGENT HEMOGLOBIN A1C Routine 06/12/2024 3:30 PM MUTUAL FUNDS AGENT TNI WITH LIPID PANEL Routine 08/24/2017 4:57 PM CDT from Last 3 Months or Most Recently Relevant to Health Maintenance Results * POCT Rapid HIV Antibody Community Screening-Issa Eligible (07/09/2024 5:32 AM MUTUAL FUNDS AGENT) [facility] Rapid HIV, POC Negative Negative Lot Number [id number] QC Control Line Acceptable Blood 07/09/2024 5:32 AM MUTUAL FUNDS AGENT Naa Tam MD POINT OF CARE TEST ORDER NICHOLE Final Result * Sepsis Lactate w/ Reflex (07/09/2024 4:33 AM MUTUAL FUNDS AGENT) Sepsis Lactate 2.0 0.7 - 2.0 mmol/L Blood 07/09/2024 4:33 AM MUTUAL FUNDS AGENT 07/09/2024 4:42 AM MUTUAL FUNDS AGENT Naa Tam MD LAB BLOOD ORDERABLES Fin al Result [facility] Department [place] [address] * ED PERIPHERAL LINE INSERTION (07/09/2024 1:18 AM MUTUAL FUNDS AGENT) Narrative Cherie Damian MD - 07/09/2024 1:18 AM MUTUAL FUNDS AGENT Atul Barba MD 07/09/2024 1:18 AM Peripheral [...] procedure: Tolerated well, no immediate complications Result [facility] Cherie Damian MD IN CLINIC/BEDSIDE ORDERABL ES Final Result * (ABNORMAL) Sepsis Lactate w/ Reflex (07/09/2024 1:15 AM MUTUAL FUNDS AGENT) Sepsis Lactate 2.8(H) 0.7 - 2.0 mmol/L Blood 07/09/2024 1:15 AM MUTUAL FUNDS AGENT 07/09/2024 1:46 AM MUTUAL FUNDS AGENT Naa Tam MD LAB BLOOD ORDERABLES Fin al Result Performing Organization Address City/[facility] [address]/[facility] Co de Phone Number [facility] Department [place] [address] * RPR Blood (07/09/2024 1:15 AM MUTUAL FUNDS AGENT) RPR Nonreactive Nonreactive Blood 07/09/2024 1:15 AM MUTUAL FUNDS AGENT 07/09/2024 1:40 AM MUTUAL FUNDS AGENT Naa Tam MD LAB MICROBIOLOGY - GENER AL ORDERABLES Final Result Performing Organization Address [facility] Phone Number [facility] [place] [address] * N. gonorrhoeae/C. trachomatis Amplification Urine (07/09/2024 1:02 AM MUTUAL FUNDS AGENT) C. trachomatis Not Detected Not Detected [facility] N. gonorrhoeae Not Detected Not Detected [facility] Comment: Interpretive Data This assay detects Chlamydia trachomatis and Neisseria gonorrhoeae by nucleic acid amplification testing (NAAT). This assay has been cleared by the [place] Food and Drug administration. The performance characteristics of this test have been verified by the [facility] Molecular Infectious Disease laboratory. The performance characteristics of this test have not been evaluated in individuals less than 14 years of age. Current Interpretive Data last revised 2023. Urine (None) 07/09/2024 1:02 AM MUTUAL FUNDS AGENT 07/09/2024 1:35 AM MUTUAL FUNDS AGENT us Naa Tam MD LAB MICROBIOLOGY - GENER AL ORDERABLES Final Result Performing Organization Address [facility] [address]/[facility] Co de Phone Number [facility] [place] [address] [facility] * (ABNORMAL) Urinalysis reflex to microscopic and culture Urine, clean voided (07/09/2024 1:02 AM MUTUAL FUNDS AGENT) Color, ur Straw Yellow Clarity, ur Clear Clear [facility] Specific gravity, ur >1.042(H) 1.003 - 1.030 [facility] pH, urine 7.5 [facility] Comment: Interpretive Data U rine pH is affected by diet, medications, systemic acid-base disturbances, and renal tubular function. pH may affect urinary stone formation. For example, urine pH below 6.0 may help reduce the tendency for calcium phosphate stones and pH greater than 6.0 may reduce the tendency for uric acid stone formation. Source: [facility] [employer] Current Interpretive Data was last revised on 2017 Protein, ur ql Trace Negative [facility] Glucose, ur ql Negative Negative [facility] Ketones, ur Negative Negative [facility] Bilirubin, ur Negative Negative [facility] Blood, ur Negative Negative [facility] Urobilinogen, ur <2.0 <2.0 mg/dL [facility] Nitrite, ur Negative Negative [facility] Leukocyte esterase, ur Negative Negative [facility] UA reflex comment Reflex conditions for microscopic UA and culture not met. [facility] Urine, clean voided 07/09/2024 1:02 AM MUTUAL FUNDS AGENT 07/09/2024 1:15 AM MUTUAL FUNDS AGENT us Naa Tam MD LAB MICROBIOLOGY - [facility] AL ORDERABLES Final Result Performing Organization Address City/State/[facility] Co de Phone Number [facility] Department [place] [address] * ED PERIPHERAL LINE INSERTION (07/08/2024 10:11 PM MUTUAL FUNDS AGENT) Narrative Tri Martinez MD - 07/08/2024 10:11 PM MUTUAL FUNDS AGENT Atul Barba MD 07/08/2024 10:12 PM Peripheral [...] Abdomen Pelvis W Contrast (07/08/2024 9:55 PM MUTUAL FUNDS AGENT) Anatomical Region Laterality Modality Body N/A Computed Tomogra phy 07/08/2024 10:3 2 PM MUTUAL FUNDS AGENT Impressions 07/09/2024 7:23 AM MUTUAL FUNDS AGENT Liquid stool within the colon, indicative of diarrheal state. Otherwise, no acute abnormalities in the abdomen or pelvis. Dictated by: Delia Morton MD The radiology attending physician has personally reviewed this study, and had reviewed and/or edited this written report and agrees with it. Electronically signed by: Marlon Kohler M.D. Narrative 07/09/2024 7:23 AM MUTUAL FUNDS AGENT EXAMINATION: Computed tomography of the chest, abdomen [...] Sepsis Lactate w/ Reflex (07/08/2024 8:56 PM MUTUAL FUNDS AGENT) Sepsis Lactate 2.4(H) 0.7 - 2.0 mmol/L Blood 07/08/2024 8:56 PM MUTUAL FUNDS AGENT 07/08/2024 9:24 PM MUTUAL FUNDS AGENT us Naa Tam MD LAB BLOOD ORDERABLES Fin al Result [facility] Department [place] [address] * eGFR (07/08/2024 8:56 PM MUTUAL FUNDS AGENT) eGFR >90 >=60 mL/min/1. 73 m2 Comment: [...] last reviewed 2021. Blood 07/08/2024 8:56 PM MUTUAL FUNDS AGENT 07/08/2024 9:26 PM MUTUAL FUNDS AGENT us Naa Tam MD LAB BLOOD ORDERABLES Fin al Result [facility] Department [place] [address] * Differential, auto (07/08/2024 8:56 PM MUTUAL FUNDS AGENT) Neutrophil abs 4.4 1.5 - 6.5 K/cumm Imm gran abs 0.0 0.0 - 0.1 K/cumm [facility] Lymphocyte abs 2.6 0.8 - 3.3 K/cumm [facility] Monocyte abs 0.5 0.2 - 0.8 K/cumm [facility] Eosinophil abs 0.5 0.0 - 0.5 K/cumm [facility] Basophil abs 0.0 0.0 - 0.1 K/cumm [facility] Neutrophil pct 54.7 % [facility] Comment: Interpretive Data Percent cell count reference ranges are not reported, since discordance with absolute values may lead to misinterpretation of CBC data. Current Interpretive Data was last revised on 2017. Imm gran pct 0.2 % [facility] Comment: Interpretive Data Percent cell count reference ranges are not reported, since discordance with absolute values may lead to misinterpretation of CBC data. Current Interpretive Data was last revised on 2017. Lymphocyte pct 32.1 % [facility] Comment: Interpretive Data Percent cell count reference ranges are not reported, since discordance with absolute values may lead to misinterpretation of CBC data. Current Interpretive Data was last revised on 2017. Monocyte pct 6.6 % [facility] Comment: Interpretive Data Percent cell count reference ranges are not reported, since discordance with absolute values may lead to misinterpretation of CBC data. Current Interpretive Data was last revised on 2017. Eosinophil pct 6.0 % [facility] Comment: Interpretive Data Percent cell count reference ranges are not reported, since discordance with absolute values may lead to misinterpretation of CBC data. Current Interpretive Data was last revised on 2017. Basophil pct 0.4 % [facility] Comment: Interpretive Data Percent cell count reference ranges are not reported, since discordance with absolute values may lead to misinterpretation of CBC data. Current Interpretive Data was last revised on 2017. Blood 07/08/2024 8:56 PM MUTUAL FUNDS AGENT 07/08/2024 9:27 PM MUTUAL FUNDS AGENT us Naa Tam MD LAB BLOOD ORDERABLES Fin al Result [facility] Department [place] [address] * Respiratory pathogen panel Nasopharyngeal (07/08/2024 8:56 PM MUTUAL FUNDS AGENT) Pathologist [facility] Influenza A RNA Not Detected Not Detected Influenza B RNA Not Detected Not Detected [facility] RSV RNA Not Detected Not Detected [facility] COVID-19 RNA Not Detected Not Detected [facility] Coronavirus 229E RNA Not Detected Not Detected [facility] Coronavirus HKU1 RNA Not Detected Not Detected [facility] Coronavirus NL63 RNA Not Detected Not Detected [facility] Coronavirus OC43 RNA Not Detected Not Detected [facility] Adenovirus DNA Not Detected Not Detected [facility] Metapneumovirus RNA Not Detected Not Detected [facility] Rhinovirus/Enterov irus RNA Not Detected Not Detected [facility] Parainfluenza 1 RNA Not Detected Not Detected [facility] Parainfluenza 2 RNA Not Detected Not Detected [facility] Parainfluenza 3 RNA Not Detected Not Detected [facility] Parainfluenza 4 RNA Not Detected Not Detected [facility] B. pertussis DNA Not Detected Not Detected [facility] B. parapertussis DNA Not Detected Not Detected [facility] C. pneumoniae DNA Not Detected Not Detected [facility] M. pneumoniae DNA Not Detected Not Detected [facility] Nasopharyngeal 07/08/2024 8: 56 PM MUTUAL FUNDS AGENT 07/08/2024 9:25 PM MUTUAL FUNDS AGENT Narrative [facility] - 07/08/2024 10:16 PM MUTUAL FUNDS AGENT Is the Patient experiencing symptoms consistent with COVID?->Yes Surveillance testing for transplant patient?->No Interpretive Data [employer] FilmArray Respiratory Panel (RP2.1) assay is a [...] assay has FDA clearance for testing of [employer] swabs. The performance of additional specimen types has been assessed by the performing laboratory. The performance characteristics of this assay have been determined by [facility] Molecular Infectious Disease Laboratory. Current interpretive data was last revised on 22. us Naa Tam MD LAB MICROBIOLOGY - GENER AL ORDERABLES Final Result Performing Organization Address City/[facility] [address]/ZIP Co de Phone Number [facility] [place] [place] [address] * (ABNORMAL) CBC with auto differential (07/08/2024 8:56 PM MUTUAL FUNDS AGENT) [facility] WBC 8.0 3.8 - 9.9 K/cumm Hgb 14.4 13.0 - 17.5 g/dL [facility] Hct 43.3 38.9 - 50.3 % [facility] Plt 236 150 - 400 K/cumm [facility] MPV 12.4(H) 9.1 - 12.3 fL [facility] RBC 4.49 4.30 - 5.80 M/cumm [facility] MCV 96.4 81.3 - 96.4 fL [facility] MCH 32.1 27.1 - 33.3 pg [facility] MCHC 33.3 32.3 - 35.7 g/dL [facility] RDW CV 13.5 11.1 - 14.9 % [facility] RDW SD 47.9 35.7 - 48.1 fL [facility] NRBC abs 0.00 0.00 - 0.01 K/cumm [facility] Blood 07/08/2024 8:56 PM [employer]UAL [employer]ENT 07/08/2024 9:27 PM M[employer]UAL [employer] AGENT us Naa Tam MD LAB BLOOD ORDERABLES Fin al Result Performing Organization Address [facility] [address] [facility]/ZIP Co de Phone Number [facility] Department [place] [address] * Lipase (07/08/2024 8:56 PM M[employer]UAL FUNDS AGENT) Lipase 32 10 - 99 Units/L Blood 07/08/2024 8:56 PM M[employer]UAL [employer]DS AGENT 07/08/2024 9:26 PM M[employer]UAL FUNDS AGENT us Naa Tam MD LAB BLOOD ORDERABLES Fin al Result [facility] Department [place] [address] * (ABNORMAL) Comprehensive metabolic panel (07/08/2024 8:56 PM M[employer]UAL FUNDS AGENT) Sodium 141 135 - 145 mmol/L Potassium, pl 4.5 3.3 - 4.9 mmol/L [facility] Chloride 102 97 - 110 mmol/L [facility] CO2 28 22 - 32 mmol/L [facility] Anion gap 11 2 - 15 mmol/L [facility] BUN 15 6 - 25 mg/dL [facility] Creatinine 0.63(L) 0.80 - 1.30 mg/dL [facility] Glucose 110 70 - 199 mg/dL [facility] Comment: Interpretive Data Fasting glucose >/= [...] 2022. Calcium 10.1 8.5 - 10.3 mg/dL [facility] Bilirubin, total 0.2 0.1 - 1.2 mg/dL [facility] Protein, pl 8.0 6.5 - 8.5 g/dL [facility] Albumin 4.1 3.5 - 5.0 g/dL [facility] Alk phos 110 40 - 130 Units/L [facility] ALT 28 7 - 55 Units/L [facility] AST 26 10 - 50 Units/L [facility] Blood 07/08/2024 8:56 PM M[employer]UAL [employer]DS [employer]ENT 07/08/2024 9:26 PM M[employer]UAL FUNDS AGENT us Naa Tam MD LAB BLOOD ORDERABLES Fin al Result Performing Organization Address [facility] [address] [facility] Co de Phone Number [facility] Department [place] [address] * ECG 12-LEAD (07/08/2024 8:28 PM M[employer]UAL [employer]DS AGENT) Narrative [facility] - 07/08/2024 8:28 PM [employer] AGENT Naa Tam MD 07/08/2024 8:30 PM ECG [...] ORDERABLES Final Re sult Performing Organization Address [facility] [address]/[facility] Co de Phone Number [facility] * XR Chest 1 View (07/08/2024 8:18 PM M[employer] AGENT) Anatomical Region Laterality Modality Body, Chest N/A Computed Radiogr aphy 07/08/2024 8:28 PM M[employer]UAL [employer]DS AGENT Impressions 07/08/2024 9:56 PM M[employer]UAL [employer]DS AGENT Comparison is made to chest graft dated [...] Sekou Wolf M.D. Narrative 07/08/2024 9:56 PM M[employer]UAL [employer] AGENT EXAMINATION: 1 view chest radiograph Procedure Note [...] Result * POCT glucose (06/28/2024 4:24 PM M[employer]UAL [employer] AGENT) Glucose, POC 191 70 - 199 mg/dL Blood 06/28/2024 4:24 PM M[employer] AGENT 06/28/2024 4:24 PM M[employer] AGENT Kami Dupont MD LAB POCT ORDERABLES - DEV ICE Final Result [facility] Department [place] [address] * POCT glucose (06/28/2024 12:30 PM M[employer]UAL [employer]DS AGENT) Glucose, POC 197 70 - 199 mg/dL Blood 06/28/2024 12:3 0 PM [employer] AGENT 06/28/2024 12:30 PM M[employer]UAL FUNDS AGENT Kami Dupont MD LAB POCT ORDERABLES - DEV ICE Final Result Performing Organization Address City/[facility] [address]/[facility] Co de Phone Number [facility] [place] [address] * POCT glucose (06/28/2024 7:43 AM M[employer]UAL FUNDS AGENT) Glucose, POC 191 70 - 199 mg/dL Blood 06/28/2024 7:43 AM M[employer]UAL FUNDS AGENT 06/28/2024 7:43 AM M[employer]UAL FUNDS AGENT Kami Dupont MD LAB POCT ORDERABLES - DEV ICE Final Result Performing Organization Address [facility] [address]/[facility] Co de Phone Number [facility] [place] [address] * POCT glucose (06/28/2024 4:01 AM M[employer]UAL FUNDS AGENT) Glucose, POC 173 70 - 199 mg/dL Blood 06/28/2024 4:01 AM M[employer]UAL FUNDS AGENT 06/28/2024 4:01 AM M[employer]UAL FUNDS AGENT Kami Dupont MD LAB POCT ORDERABLES - DEV ICE Final Result Performing Organization Address [facility] [address]/[facility] Co de Phone Number [facility] [place] [address] * (ABNORMAL) POCT glucose (06/27/2024 11:28 PM M[employer]UAL [employer] AGENT) Glucose, POC 220(H) 70 - 199 mg/dL Comment:Use Protocol Glucose comment 1 Use Protocol [facility] Blood 06/27/2024 11:2 8 PM [employer]ENT 06/27/2024 11:28 PM M[employer] AGENT Kami Dupont MD LAB POCT ORDERABLES - DEV ICE Final Result Performing Organization Address City/[facility] [address]/[facility] Co de Phone Number [facility] [place] [address] * eGFR (06/27/2024 9:30 PM M[employer] AGENT) eGFR >90 >=60 mL/min/1. 73 m2 Comment: [...] last reviewed 2021. Blood 06/27/2024 9:30 PM M[employer]UAL [employer] AGENT 06/27/2024 9:45 PM M[employer]UAL FUN[employer] AGENT Kami Dupont MD LAB BLOOD ORDERABLES Lulu l Result [facility] [place] [address] * Phosphorus (06/27/2024 9:30 PM M[employer]UAL FUNDS AGENT) Pathologist [facility] Phosphorus, pl 3.3 2.3 - 4.5 mg/dL Comment:Repeated and Verifie d Blood 06/27/2024 9:30 PM M[employer] AGENT 06/27/2024 9:45 PM M[employer] AGENT Kami Dupont MD LAB BLOOD ORDERABLES Lulu l Result [facility] [place] [address] * Magnesium (06/27/2024 9:30 PM MUTUAL FUNDS AGENT) Pathologist [facility] Magnesium 1.9 1.4 - 2.5 mg/dL Blood 06/27/2024 9:30 PM M[employer]UAL [employer]DS AGENT 06/27/2024 9:45 PM M[employer]UAL FUNDS AGENT Kami Dupont MD LAB BLOOD ORDERABLES Lulu l Result [facility] Department [place] [address] * (ABNORMAL) Basic metabolic panel (06/27/2024 9:30 PM M[employer]UAL FUNDS AGENT) Pathologist [facility] Sodium 141 135 - 145 mmol/L Potassium, pl 4.4 3.3 - 4.9 mmol/L [facility] Chloride 105 97 - 110 mmol/L [facility] CO2 28 22 - 32 mmol/L [facility] Anion gap 8 2 - 15 mmol/L [facility] BUN 9 6 - 25 mg/dL [facility] Creatinine 0.47(L) 0.80 - 1.30 mg/dL [facility] Glucose 208(H) 70 - 199 mg/dL [facility] Comment: Interpretive Data Fasting glucose >/= [...] 2022. Calcium 8.9 8.5 - 10.3 mg/dL [facility] Blood 06/27/2024 9:30 PM M[employer] AGENT 06/27/2024 9:45 PM M[employer] AGENT Kami Dupont MD LAB BLOOD ORDERABLES Lulu l Result Performing Organization Address City/[facility] [address]/[facility] Co de Phone Number [facility] [place] [address] * POCT glucose (06/27/2024 8:39 PM M[employer]UAL FUNDS AGENT) Glucose, POC 195 70 - 199 mg/dL Blood 06/27/2024 8:39 PM M[employer]UAL [employer]DS AGENT 06/27/2024 8:39 PM M[employer] AGENT Kami Dupont MD LAB POCT ORDERABLES - DEV ICE Final Result Performing Organization Address [facility] [place] [address] * POCT glucose (06/27/2024 5:10 PM M[employer]UAL [employer] AGENT) Glucose, POC 194 70 - 199 mg/dL Blood 06/27/2024 5:10 PM M[employer]UAL [employer] AGENT 06/27/2024 5:10 PM M[employer]UAL FUNDS AGENT Kami Dupont MD LAB POCT ORDERABLES - DEV ICE Final Result Performing Organization Address [facility] de Phone Number [facility] [place] [address] * (ABNORMAL) POCT glucose (06/27/2024 4:27 PM M[employer]UAL [employer] AGENT) Glucose, POC 224(H) 70 - 199 mg/dL Blood 06/27/2024 4:27 PM M[employer]UAL [employer] AGENT 06/27/2024 4:27 PM M[employer]UAL FUNDS AGENT us Kami Dupont MD LAB POCT ORDERABLES - DEV ICE Final Result Performing Organization Address City/[facility] [address]/[facility] Co de Phone Number [facility] [place] [address] * POCT glucose (06/27/2024 1:06 PM M[employer]UAL FUNDS AGENT) Glucose, POC 173 70 - 199 mg/dL Blood 06/27/2024 1:06 PM M[employer]UAL FUNDS AGENT 06/27/2024 1:06 PM M[employer]UAL FUNDS AGENT Kami Dupont MD LAB POCT ORDERABLES - DEV ICE Final Result Performing Organization Address City/[facility] [address]/[facility] de Phone Number [facility] [place] [address] * POCT glucose (06/27/2024 9:59 AM M[employer]UAL FUNDS AGENT) Glucose, POC 158 70 - 199 mg/dL Blood 06/27/2024 9:59 AM M[employer]UAL FUNDS AGENT 06/27/2024 9:59 AM M[employer]UAL FUNDS AGENT Kami Dupont MD LAB POCT ORDERABLES - DEV ICE Final Result Performing Organization Address [facility] [address] [facility] de Phone Number [facility] [place] [address] * eGFR (06/26/2024 10:21 PM M[employer] AGENT) eGFR >90 >=60 mL/min/1. 73 m2 Comment: [...] reviewed 2021. Blood 06/26/2024 10:2 1 PM [employer] AGENT 06/26/2024 10:53 PM M[employer]UAL FUNDS AGENT us Kami Dupont MD LAB BLOOD ORDERABLES Lulu brijesh Result [facility] Department [place] [address] * Differential, auto (06/26/2024 10:21 PM M[employer]UAL [employer] AGENT) Neutrophil abs 5.0 1.5 - 6.5 K/cumm Imm gran abs 0.0 0.0 - 0.1 K/cumm [facility] Lymphocyte abs 2.4 0.8 - 3.3 K/cumm [facility] Monocyte abs 0.8 0.2 - 0.8 K/cumm [facility] Eosinophil abs 0.4 0.0 - 0.5 K/cumm [facility] Basophil abs 0.0 0.0 - 0.1 K/cumm [facility] Neutrophil pct 58.2 % [facility] Comment: Interpretive Data Percent cell count reference ranges are not reported, since discordance with absolute values may lead to misinterpretation of CBC data. Current Interpretive Data was last revised on 2017. Imm gran pct 0.3 % [facility] Comment: Interpretive Data Percent cell count reference ranges are not reported, since discordance with absolute values may lead to misinterpretation of CBC data. Current Interpretive Data was last revised on 2017. Lymphocyte pct 27.9 % [facility] Comment: Interpretive Data Percent cell count reference ranges are not reported, since discordance with absolute values may lead to misinterpretation of CBC data. Current Interpretive Data was last revised on 2017. Monocyte pct 9.2 % [facility] Comment: Interpretive Data Percent cell count reference ranges are not reported, since discordance with absolute values may lead to misinterpretation of CBC data. Current Interpretive Data was last revised on 2017. Eosinophil pct 4.1 % [facility] Comment: Interpretive Data Percent cell count reference ranges are not reported, since discordance with absolute values may lead to misinterpretation of CBC data. Current Interpretive Data was last revised on 2017. Basophil pct 0.3 % [facility] Comment: Interpretive Data Percent cell count reference ranges are not reported, since discordance with absolute values may lead to misinterpretation of CBC data. Current Interpretive Data was last revised on 2017. Blood 06/26/2024 10:2 1 PM M[employer] AGENT 06/26/2024 10:53 PM M[employer]UAL FUN[employer] AGENT Kami Dupont MD LAB BLOOD ORDERABLES Lulu coley Result [facility] Department [place] [address] * (ABNORMAL) CBC with auto differential (06/26/2024 10:21 PM M[employer]UAL [employer]DS AGENT) WBC 8.6 3.8 - 9.9 K/cumm Hgb 13.1 13.0 - 17.5 g/dL [facility] Hct 39.1 38.9 - 50.3 % [facility] Plt 173 150 - 400 K/cumm [facility] MPV 13.1(H) 9.1 - 12.3 fL [facility] RBC 4.07(L) 4.30 - 5.80 M/cumm [facility] MCV 96.1 81.3 - 96.4 fL [facility] MCH 32.2 27.1 - 33.3 pg [facility] MCHC 33.5 32.3 - 35.7 g/dL [facility] RDW CV 13.5 11.1 - 14.9 % [facility] RDW SD 47.8 35.7 - 48.1 fL [facility] NRBC abs 0.00 0.00 - 0.01 K/cumm [facility] Blood 06/26/2024 10:2 1 PM [employer]ENT 06/26/2024 10:53 PM M[employer] AGENT Kami Dupont MD LAB BLOOD ORDERABLES Lulu l Result [facility] [place] [address] * Hepatitis B Surface Antigen Blood (06/26/2024 10:21 PM M[employer]UAL [employer] AGENT) HepBsAg Nonreactive Nonreactive Blood 06/26/2024 10:2 1 PM M[employer] AGENT 06/26/2024 10:53 PM M[employer]UAL FUNDS AGENT Kami Dupont MD LAB MICROBIOLOGY - GENERA L ORDERABLES Final Result Performing Organization Address [facility] [address] [facility] Co de Phone Number [facility] [place] [address] * (ABNORMAL) Phosphorus (06/26/2024 10:21 PM MUTUAL FUNDS AGENT) Pathologist [facility] Phosphorus, pl <0.7(L) 2.3 - 4.5 mg/dL Comment:Repeated and Verifie d Blood 06/26/2024 10:2 1 PM M[employer]UAL [employer] AGENT 06/26/2024 10:53 PM M[employer]UAL FUNDS AGENT Kami Dupont MD LAB BLOOD ORDERABLES Lulu l Result Performing Organization Address City/[facility] [address]/ZIP Co de Phone Number [facility] [place] [address] * Magnesium (06/26/2024 10:21 PM MUTUAL FUNDS AGENT) Pathologist [facility] Magnesium 2.0 1.4 - 2.5 mg/dL Blood 06/26/2024 10:2 1 PM M[employer]UAL [employer] AGENT 06/26/2024 10:53 PM M[employer]UAL FUNDS AGENT Kami Dupont MD LAB BLOOD ORDERABLES Lulu l Result [facility] [place] [address] * (ABNORMAL) Basic metabolic panel (06/26/2024 10:21 PM MUTUAL FUNDS AGENT) Pathologist [facility] Sodium 141 135 - 145 mmol/L Potassium, pl 4.7 3.3 - 4.9 mmol/L [facility] Chloride 106 97 - 110 mmol/L [facility] CO2 28 22 - 32 mmol/L [facility] Anion gap 7 2 - 15 mmol/L [facility] BUN 11 6 - 25 mg/dL [facility] Creatinine 0.47(L) 0.80 - 1.30 mg/dL [facility] Glucose 213(H) 70 - 199 mg/dL [facility] Comment: Interpretive Data Fasting glucose >/= [...] 2022. Calcium 9.3 8.5 - 10.3 mg/dL [facility] Blood 06/26/2024 10:2 1 PM M[employer]UAL [employer] AGENT 06/26/2024 10:53 PM M[employer]UAL FUNDS AGENT us Kami Dupont MD LAB BLOOD ORDERABLES Lulu coley Result [facility] Department [place] [address] * HIV 1/2 Antibody plus p24 Antigen Blood (06/26/2024 3:21 PM MUTUAL FUNDS AGENT) Pathologist [facility] HIV 1/2 ab + p24 ag Nonreactive Nonreactive Comment:Nonreactive for HIV- 1 antigen and HIV-1/HIV-2 antibodies. No laboratory evidence of HIV infection. If acute HIV infection is suspected, consider testing for HIV-1 RNA. Current interpretive data was last revised on 22. Blood 06/26/2024 3:21 PM M[employer]UAL [employer] AGENT 06/26/2024 3:41 PM M[employer]UAL FUNDS AGENT Kami Dupont MD LAB MICROBIOLOGY - GENERA L ORDERABLES Final Result Performing Organization Address [facility] [address]/[facility] de Phone Number [facility] [place] [address] * Hepatitis C antibody Blood (06/26/2024 3:21 PM M[employer]UAL FUNDS AGENT) Hep C Ab Nonreactive Nonreactive Comment:Antibodies to HCV no t detected. Does NOT exclude the possibility of recent exposure to HCV. Current interpretive data was last revised on 22 Blood 06/26/2024 3:21 PM M[employer]UAL FUNDS AGENT 06/26/2024 3:41 PM M[employer]UAL FUNDS AGENT Kami Dupont MD LAB MICROBIOLOGY - GENERA L ORDERABLES Final Result Performing Organization Address [facility] de Phone Number [facility] [place] [address] * RPR Blood (06/26/2024 3:21 PM MUTUAL FUNDS AGENT) RPR Nonreactive Nonreactive Blood 06/26/2024 3:21 PM M[employer]UAL FUNDS AGENT 06/26/2024 3:41 PM M[employer]UAL FUNDS AGENT Kami Dupont MD LAB MICROBIOLOGY - GENERA L ORDERABLES Final Result Performing Organization Address [facility] [address] [facility] de Phone Number [facility] [place] [address] * (ABNORMAL) Phosphorus (06/26/2024 3:21 PM MUTUAL FUNDS AGENT) Phosphorus, pl 0.7(L) 2.3 - 4.5 mg/dL Comment:Repeated and Verifie d Blood 06/26/2024 3:21 PM M[employer]UAL [employer]DS AGENT 06/26/2024 3:41 PM M[employer]UAL FUNDS AGENT us Kami Dupont MD LAB BLOOD ORDERABLES Lulu l Result Performing Organization Address City/[facility] [address]/[facility] Co de Phone Number [facility] Department [place] [address] * eGFR (06/26/2024 12:16 AM M[employer]UAL FUNDS AGENT) eGFR >90 >=60 mL/min/1. 73 m2 Comment: [...] reviewed 2021. Blood 06/26/2024 12:1 6 AM M[employer]UAL FUNDS AGENT 06/26/2024 12:39 AM MUTUAL FUNDS AGENT us Patricia Bryant MD LAB BLOOD ORDERABLES Final Res ult Performing Organization Address [facility] [address]/ZIP Co de Phone Number [facility] Department [place] [address] * (ABNORMAL) Phosphorus (06/26/2024 12:16 AM MUTUAL FUNDS AGENT) Phosphorus, pl <0.7(L) 2.3 - 4.5 mg/dL Comment:Repeated and Verifie d Blood 06/26/2024 12:1 6 AM M[employer]UAL FUNDS AGENT 06/26/2024 12:39 AM M[employer]UAL FUNDS AGENT Patricia Bryant MD LAB BLOOD ORDERABLES Final Res ult Performing Organization Address City/[facility] [address]/[facility] Co de Phone Number [facility] [place] [address] * Magnesium (06/26/2024 12:16 AM MUTUAL FUNDS AGENT) [facility] Magnesium 1.9 1.4 - 2.5 mg/dL Blood 06/26/2024 12:1 6 AM M[employer]UAL FUN[employer] AGENT 06/26/2024 12:39 AM M[employer]UAL FUNDS AGENT Patricia Bryant MD LAB BLOOD ORDERABLES Final Res ult Performing Organization Address [facility] [address]/[facility] de Phone Number [facility] [place] [address] * (ABNORMAL) Basic metabolic panel (06/26/2024 12:16 AM MUTUAL FUNDS AGENT) [facility] Sodium 142 135 - 145 mmol/L Potassium, pl 4.4 3.3 - 4.9 mmol/L [facility] Comment:Hemolyzed; Potassium value may be falsely elevated by as much as 0.3-0.5 mmol/L. Suggest redraw and reanalysis. Chloride 109 97 - 110 mmol/L [facility] CO2 29 22 - 32 mmol/L [facility] Anion gap 4 2 - 15 mmol/L [facility] BUN 13 6 - 25 mg/dL [facility] Creatinine 0.53(L) 0.80 - 1.30 mg/dL [facility] Glucose 177 70 - 199 mg/dL [facility] Comment: Interpretive Data Fasting glucose >/= [...] 2022. Calcium 9.0 8.5 - 10.3 mg/dL [facility] Blood 06/26/2024 12:1 6 AM M[employer]UAL FUNDS AGENT 06/26/2024 12:39 AM M[employer]UAL FUNDS AGENT Patricia Bryant MD LAB BLOOD ORDERABLES Final Res ult Performing Organization Address City/[facility] [address]/ZIP Co de Phone Number [facility] Department [place] [address] * POCT glucose (06/23/2024 11:36 AM MUTUAL FUNDS AGENT) Pathologist [facility] Glucose, POC 95 70 - 199 mg/dL Blood 06/23/2024 11:3 6 AM M[employer]UAL [employer]DS AGENT 06/23/2024 11:36 AM MUTUAL FUNDS AGENT Result [facility] Patricia Bryant MD LAB POCT ORDERABLES - DEVICE F inal Result Performing Organization Address [facility] [address] [facility] de Phone Number [facility] Department [place] [address] * (ABNORMAL) CBC without differential (06/23/2024 9:07 AM MUTUAL FUNDS AGENT) [facility] WBC 4.7 3.8 - 9.9 K/cumm Hgb 12.5(L) 13.0 - 17.5 g/dL [facility] Hct 37.4(L) 38.9 - 50.3 % [facility] Plt 145(L) 150 - 400 K/cumm [facility] MPV 12.6(H) 9.1 - 12.3 fL [facility] RBC 3.94(L) 4.30 - 5.80 M/cumm [facility] MCV 94.9 81.3 - 96.4 fL [facility] MCH 31.7 27.1 - 33.3 pg [facility] MCHC 33.4 32.3 - 35.7 g/dL [facility] RDW CV 12.9 11.1 - 14.9 % [facility] RDW SD 45.1 35.7 - 48.1 fL [facility] NRBC abs 0.00 0.00 - 0.01 K/cumm [facility] Blood 06/23/2024 9:07 AM M[employer]UAL FUNDS AGENT 06/23/2024 9:28 AM M[employer]UAL FUNDS AGENT Patricia Bryant MD LAB BLOOD ORDERABLES Final Res ult [facility] [place] [address] * eGFR (06/23/2024 9:00 AM M[employer]UAL FUNDS AGENT) eGFR >90 >=60 mL/min/1. 73 m2 Comment: [...] last reviewed 2021. Blood 06/23/2024 9:00 AM M[employer]UAL FUNDS AGENT 06/23/2024 10:59 AM M[employer]UAL FUNDS AGENT Patricia Bryant MD LAB BLOOD ORDERABLES Final Res ult [facility] Department [place] [address] * Phosphorus (06/23/2024 9:00 AM MUTUAL FUNDS AGENT) Pathologist [facility] Phosphorus, pl 2.3 2.3 - 4.5 mg/dL Blood 06/23/2024 9:00 AM M[employer]UAL FUNDS AGENT 06/23/2024 10:59 AM M[employer]UAL FUNDS AGENT Patricia Bryant MD LAB BLOOD ORDERABLES Final Res ult Performing Organization Address City/[facility] [address]/[facility] Co de Phone Number [facility] Department [place] [address] * Magnesium (06/23/2024 9:00 AM MUTUAL FUNDS AGENT) [facility] Magnesium 1.7 1.4 - 2.5 mg/dL Blood 06/23/2024 9:00 AM M[employer]UAL FUNDS AGENT 06/23/2024 10:59 AM MUTUAL FUNDS AGENT Patricia Bryant MD LAB BLOOD ORDERABLES Final Res ult Performing Organization Address [facility] [address] [facility] Co de Phone Number [facility] [place] [address] * Vancomycin level trough (06/23/2024 9:00 AM MUTUAL FUNDS AGENT) [facility] Vancomycin trough 15.2 10.0 - 20.0 mcg/mL Blood 06/23/2024 9:00 AM M[employer]UAL FUNDS AGENT 06/23/2024 10:59 AM MUTUAL FUNDS AGENT Result [facility] Patricia Bryant MD LAB BLOOD ORDERABLES Final Res ult Performing Organization Address City/[facility] [address]/[facility] [place] [address] * (ABNORMAL) Basic metabolic panel (06/23/2024 9:00 AM MUTUAL FUNDS AGENT) Pathologist [facility] Sodium 143 135 - 145 mmol/L Potassium, pl 3.7 3.3 - 4.9 mmol/L [facility] Chloride 108 97 - 110 mmol/L [facility] CO2 28 22 - 32 mmol/L [facility] Anion gap 7 2 - 15 mmol/L [facility] BUN 3(L) 6 - 25 mg/dL [facility] Creatinine 0.50(L) 0.80 - 1.30 mg/dL [facility] Glucose 271(H) 70 - 199 mg/dL [facility] Comment: Interpretive Data Fasting glucose >/= [...] 2022. Calcium 9.0 8.5 - 10.3 mg/dL [facility] Blood 06/23/2024 9:00 AM M[employer]UAL FUNDS AGENT 06/23/2024 10:59 AM MUTUAL FUNDS AGENT us Patricia Bryant MD LAB BLOOD ORDERABLES Final Res ult [facility] [facility] Department [place] [address] * IR G To GJ-Tube Replacement (06/22/2024 1:24 PM MUTUAL FUNDS AGENT) Anatomical Region Laterality Modality Body N/A X-Ray Angiograph y 06/22/2024 1:47 PM MUTUAL FUNDS AGENT Impressions 06/22/2024 4:13 PM MUTUAL FUNDS AGENT Successful percutaneous 18 Fr 45 cm gastrojejunostomy [...] Sean Hillman M.D. Narrative 06/22/2024 4:13 PM MUTUAL FUNDS AGENT EXAMINATION: GASTROJEJUNOSTOMY TUBE EXCHANGE HISTORY/INDICATION: 64 yo [...] procedure. TECHNIQUE: Prior to beginning the procedure, Garnett Protocol was performed to confirm the patient's [...] placed in the proximal jejunum. A 18 Belarusian, 45 cm long JELLY single/double lumen gastrojejunostomy [...] procedure. TECHNIQUE: Prior to beginning the procedure, Garnett Protocol was performed to confirm the patient's [...] placed in the proximal jejunum. A 18 Belarusian, 45 cm long JELLY single/double lumen gastrojejunostomy [...] by: Sean Hillman M.D. Patricia Bryant MD [facility] IR PROCEDURES Final Result * C. difficile testing Stool (06/21/2024 11:11 AM MUTUAL FUNDS AGENT) [facility] Result Negative Negative Toxin Result Negative Negative [facility] C. diff result Negative, free toxin Negative, free toxin [facility] C. diff interp Negative for toxigenic Clostridioides (Clostridium) difficile. Analysis was performed using a glutamate dehydrogenase antigen detection assay combined with a C. difficile toxin detection assay. [facility] Stool 06/21/2024 11:1 1 AM MUTUAL FUNDS AGENT 06/21/2024 12:55 PM MUTUAL FUNDS AGENT Narrative [facility] - 06/21/2024 2:38 PM MUTUAL FUNDS AGENT Testing for C. difficile is not recommended within 4 days of a negative result, 10 days of a positive, or 24 hours after laxative administration. If this order is clinically indicated, contact the lab and enter the passcode to complete this order.->[id number] Patricia Bryant MD LAB MICROBIOLOGY - GENERAL ORD ERABLES Final Result Performing Organization Address [facility] Co de Phone Number [facility] [place] [address] * Infection Prevention VRE Culture Stool (06/21/2024 11:10 AM MUTUAL FUNDS AGENT) Report Final Report: Negative Stool 06/21/2024 11:1 0 AM MUTUAL FUNDS AGENT 06/21/2024 2:41 PM MUTUAL FUNDS AGENT Narrative [facility] 06/23/2024 11:15 PM MUTUAL FUNDS AGENT Surveillance culture for Infection Prevention purposes only; results indicate colonization, not infection requiring treatment. Testing performed by [facility] ([phone]). Patricia Bryant MD LAB MICROBIOLOGY - GENERAL ORD ERABLES Final Result Performing Organization Address [facility] [place] [address] * Vancomycin level trough Draw trough 30 minutes prior to 4th dose. (06/21/2024 7:16 AM MUTUAL FUNDS AGENT) Vancomycin trough 16.8 10.0 - 20.0 mcg/mL Blood 06/21/2024 7:16 AM MUTUAL FUNDS AGENT 06/21/2024 7:27 AM MUTUAL FUNDS AGENT Narrative [facility] 06/21/2024 8:10 AM MUTUAL FUNDS AGENT Draw trough 30 minutes prior to 4th dose. Patricia Bryant MD LAB BLOOD ORDERABLES Final Res ult Performing Organization Address [facility] [address]/[facility] Co de Phone Number [facility] [place] [address] * eGFR (06/21/2024 5:03 AM MUTUAL FUNDS AGENT) Pathologist [facility] eGFR >90 [...] last reviewed 2021. Blood 06/21/2024 5:03 AM MUTUAL FUNDS AGENT 06/21/2024 5:14 AM MUTUAL FUNDS AGENT us Patricia Bryant MD LAB BLOOD ORDERABLES Final Res ult [facility] Department [place] [address] * Differential, auto (06/21/2024 5:03 AM MUTUAL FUNDS AGENT) [facility] Neutrophil abs 1.7 1.5 - 6.5 K/cumm Imm gran abs 0.0 0.0 - 0.1 K/cumm [facility] Lymphocyte abs 1.7 0.8 - 3.3 K/cumm [facility] Monocyte abs 0.6 0.2 - 0.8 K/cumm [facility] Eosinophil abs 0.3 0.0 - 0.5 K/cumm [facility] Basophil abs 0.0 0.0 - 0.1 K/cumm [facility] Neutrophil pct 38.8 % [facility] Comment: Interpretive Data Percent cell count reference ranges are not reported, since discordance with absolute values may lead to misinterpretation of CBC data. Current Interpretive Data was last revised on 2017. Imm gran pct 0.2 % [facility] Comment: Interpretive Data Percent cell count reference ranges are not reported, since discordance with absolute values may lead to misinterpretation of CBC data. Current Interpretive Data was last revised on 2017. Lymphocyte pct 40.5 % [facility] Comment: Interpretive Data Percent cell count reference ranges are not reported, since discordance with absolute values may lead to misinterpretation of CBC data. Current Interpretive Data was last revised on 2017. Monocyte pct 13.4 % [facility] Comment: Interpretive Data Percent cell count reference ranges are not reported, since discordance with absolute values may lead to misinterpretation of CBC data. Current Interpretive Data was last revised on 2017. Eosinophil pct 6.6 % [facility] Comment: Interpretive Data Percent cell count reference ranges are not reported, since discordance with absolute values may lead to misinterpretation of CBC data. Current Interpretive Data was last revised on 2017. Basophil pct 0.5 % [facility] Comment: Interpretive Data Percent cell count reference ranges are not reported, since discordance with absolute values may lead to misinterpretation of CBC data. Current Interpretive Data was last revised on 2017. Blood 06/21/2024 5:03 AM MUTUAL FUNDS AGENT 06/21/2024 5:14 AM MUTUAL FUNDS AGENT us Patricia Bryant MD LAB BLOOD ORDERABLES Final Res ult [facility] Department of Laboratories [place], [place] [id number] * (ABNORMAL) CBC with auto differential (06/21/2024 5:03 AM MUTUAL FUNDS AGENT) WBC 4.3 3.8 - 9.9 K/cumm Hgb 11.6(L) 13.0 - 17.5 g/dL [facility] Hct 34.5(L) 38.9 - 50.3 % [facility] Plt 132(L) 150 - 400 K/cumm [facility] MPV 11.3 9.1 - 12.3 fL [facility] RBC 3.53(L) 4.30 - 5.80 M/cumm [facility] MCV 97.7(H) 81.3 - 96.4 fL [facility] MCH 32.9 27.1 - 33.3 pg [facility] MCHC 33.6 32.3 - 35.7 g/dL [facility] RDW CV 13.4 11.1 - 14.9 % [facility] RDW SD 48.0 35.7 - 48.1 fL [facility] NRBC abs 0.00 0.00 - 0.01 K/cumm [facility] Blood 06/21/2024 5:03 AM MUTUAL FUNDS AGENT 06/21/2024 5:14 AM MUTUAL FUNDS AGENT Patricia Bryant MD LAB BLOOD ORDERABLES Final Res ult Performing Organization Address City/[facility] [address]/ZIP Co de Phone Number [facility] Department [place] [address] * Phosphorus (06/21/2024 5:03 AM MUTUAL FUNDS AGENT) Phosphorus, pl 3.1 2.3 - 4.5 mg/dL Blood 06/21/2024 5:03 AM MUTUAL FUNDS AGENT 06/21/2024 5:14 AM MUTUAL FUNDS AGENT us Patricia Bryant MD LAB BLOOD ORDERABLES Final Res ult [facility] [place] [address] * Magnesium (06/21/2024 5:03 AM MUTUAL FUNDS AGENT) Pathologist [facility] Magnesium 1.9 1.4 - 2.5 mg/dL Blood 06/21/2024 5:03 AM MUTUAL FUNDS AGENT 06/21/2024 5:14 AM MUTUAL FUNDS AGENT us Patricia Bryant MD LAB BLOOD ORDERABLES Final Res ult [facility] Department [place] [address] * (ABNORMAL) Comprehensive metabolic panel (06/21/2024 5:03 AM MUTUAL FUNDS AGENT) Sodium 145 135 - 145 mmol/L Potassium, pl 3.4 3.3 - 4.9 mmol/L [facility] Chloride 112(H) 97 - 110 mmol/L [facility] CO2 27 22 - 32 mmol/L [facility] Anion gap 6 2 - 15 mmol/L [facility] BUN 9 6 - 25 mg/dL [facility] Creatinine 0.57(L) 0.80 - 1.30 mg/dL [facility] Glucose 106 70 - 199 mg/dL [facility] Comment: Interpretive Data Fasting glucose >/= [...] 2022. Calcium 8.6 8.5 - 10.3 mg/dL [facility] Bilirubin, total 0.2 0.1 - 1.2 mg/dL [facility] Protein, pl 5.6(L) 6.5 - 8.5 g/dL [facility] Albumin 2.7(L) 3.5 - 5.0 g/dL [facility] Alk phos 61 40 - 130 Units/L [facility] ALT 15 7 - 55 Units/L 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 Patricia Bryant MD LAB MICROBIOLOGY - GENERAL ORD ERABLES Final Result Performing Organization Address [facility] [address] [facility] Co de Phone Number [facility] Department [place] [address] * XR Abdomen Ap 1 Vw (06/20/2024 10:29 AM MUTUAL FUNDS AGENT) Anatomical Region Laterality Modality Body, Abdomen N/A Computed Radiogr aphy 06/20/2024 10:5 3 AM MUTUAL FUNDS AGENT Impressions 06/20/2024 11:51 AM MUTUAL FUNDS AGENT Gastrostomy tube. Colonic distention is improved. No radiographic evidence of obstruction. Dictated by: Hunter Hernandez M.D (Ramanan). The radiology attending physician has personally reviewed this study, and had reviewed and/or edited this written report and agrees with it. Electronically signed by: Byron Moya M.D. Narrative 06/20/2024 11:51 AM MUTUAL FUNDS AGENT EXAMINATION: Abdomen, one view. HISTORY: Abdominal distention. [...] and culture Urine, bladder (06/19/2024 9:34 PM MUTUAL FUNDS AGENT) Color, ur Straw Yellow Clarity, ur Clear Clear [facility] Specific gravity, ur 1.021 1.003 - 1.[address] [facility] pH, urine 7.0 [facility] Comment: Interpretive Data U rine pH is affected by diet, medications, systemic acid-base disturbances, and renal tubular function. pH may affect urinary stone formation. For example, urine pH below 6.0 may help reduce the tendency for calcium phosphate stones and pH greater than 6.0 may reduce the tendency for uric acid stone formation. Source: [place] [employer] Current Interpretive Data was last revised on 2017 Protein, ur ql 1+(A) Negative [facility] Glucose, ur ql Negative Negative [facility] Ketones, ur Negative Negative [facility] Bilirubin, ur Negative Negative [facility] Blood, ur Negative Negative [facility] Urobilinogen, ur <2.0 <2.0 mg/dL [facility] Nitrite, ur Negative Negative [facility] Leukocyte esterase, ur Negative Negative [facility] UA reflex comment Reflex to microscopic UA will be performed. [facility] Urine, bladder 06/19/2024 9: 34 PM MUTUAL FUNDS AGENT 06/19/2024 10:05 PM MUTUAL FUNDS AGENT Patricia Bryant MD LAB MICROBIOLOGY - GENERAL ORD ERABLES Final Result [facility] Department [place] [address] * Urinalysis, microscopic only (06/19/2024 9:34 PM MUTUAL FUNDS AGENT) WBC, ur 0-5 0 - 5 /HPF RBC, ur 0-2 0 - 2 /HPF [facility] Epithelial cells, squamous, ur 1-5 0 - 5 /HPF [facility] Culture Reflex Comment Reflex conditions for urine culture (WBC >10) not met. [facility] Urine, bladder 06/19/2024 9: 34 PM MUTUAL FUNDS AGENT 06/19/2024 10:05 PM MUTUAL FUNDS AGENT Patricia Bryant MD LAB URINE ORDERABLES Final Res ult Performing Organization Address [facility] [address]/[facility] de Phone Number [facility] Department [place] [address] * (ABNORMAL) Differential, auto (06/19/2024 9:28 PM MUTUAL FUNDS AGENT) Pathologist [facility] Neutrophil abs 6.0 1.5 - 6.5 K/cumm Imm gran abs 0.0 0.0 - 0.1 K/cumm [facility] Lymphocyte abs 0.7(L) 0.8 - 3.3 K/cumm [facility] Monocyte abs 0.2 0.2 - 0.8 K/cumm [facility] Eosinophil abs 0.2 0.0 - 0.5 K/cumm [facility] Basophil abs 0.0 0.0 - 0.1 K/cumm [facility] Neutrophil pct 84.1 % [facility] Comment: Interpretive Data Percent cell count reference ranges are not reported, since discordance with absolute values may lead to misinterpretation of CBC data. Current Interpretive Data was last revised on 2017. Imm gran pct 0.4 % [facility] Comment: Interpretive Data Percent cell count reference ranges are not reported, since discordance with absolute values may lead to misinterpretation of CBC data. Current Interpretive Data was last revised on 2017. Lymphocyte pct 10.1 % [facility] Comment: Interpretive Data Percent cell count reference ranges are not reported, since discordance with absolute values may lead to misinterpretation of CBC data. Current Interpretive Data was last revised on 2017. Monocyte pct 2.9 % [facility] Comment: Interpretive Data Percent cell count reference ranges are not reported, since discordance with absolute values may lead to misinterpretation of CBC data. Current Interpretive Data was last revised on 2017. Eosinophil pct 2.4 % [facility] Comment: Interpretive Data Percent cell count reference ranges are not reported, since discordance with absolute values may lead to misinterpretation of CBC data. Current Interpretive Data was last revised on 2017. Basophil pct 0.1 % [facility] Comment: Interpretive Data Percent cell count reference ranges are not reported, since discordance with absolute values may lead to misinterpretation of CBC data. Current Interpretive Data was last revised on 2017. Blood 06/19/2024 9:28 PM MUTUAL FUNDS AGENT 06/19/2024 10:38 PM MUTUAL FUNDS AGENT us Patricia Bryant MD LAB BLOOD ORDERABLES Final Res ult [facility] Department [place] [address] * Lacosamide level (06/19/2024 9:28 PM MUTUAL FUNDS AGENT) Lacosamide 9.6 1.0 - 10.0 mcg/mL [facility] Comment: ADDITIONAL INFORMATION This test was developed and its performance characteristics determined by [facility] in a manner consistent with CLIA requirements. This test has not been cleared or approved by the U.S. Food and Drug Administration. Test Performed by: [facility] - [address] [address] [employer] Washer: Marianela Odonnell Ph.D.; CLIA# [id number] Blood 06/19/2024 9:28 PM MUTUAL FUNDS AGENT 06/19/2024 11:01 PM MUTUAL FUNDS AGENT Narrative [facility] - 06/22/2024 10:25 AM MUTUAL FUNDS AGENT Please get level before lacosamide dose is given Patricia Bryant MD LAB BLOOD ORDERABLES Final Res ult Performing Organization Address City/[facility] [address]/[facility] Co de Phone Number [facility] Department [place] [address] [facility] * (ABNORMAL) CBC with auto differential (06/19/2024 9:28 PM MUTUAL FUNDS AGENT) [facility] WBC 7.1 3.8 - 9.9 K/cumm Hgb 12.5(L) 13.0 - 17.5 g/dL [facility] Hct 37.0(L) 38.9 - 50.3 % [facility] Plt 152 150 - 400 K/cumm [facility] MPV 12.6(H) 9.1 - 12.3 fL [facility] RBC 3.90(L) 4.30 - 5.80 M/cumm [facility] MCV 94.9 81.3 - 96.4 fL [facility] MCH 32.1 27.1 - 33.3 pg [facility] MCHC 33.8 32.3 - 35.7 g/dL [facility] RDW CV 13.4 11.1 - 14.9 % [facility] RDW SD 46.8 35.7 - 48.1 fL [facility] NRBC abs 0.00 0.00 - 0.01 K/cumm [facility] Blood 06/19/2024 9:28 PM MUTUAL FUNDS AGENT 06/19/2024 10:38 PM MUTUAL FUNDS AGENT Patricia Bryant MD LAB BLOOD ORDERABLES Final Res ult Performing Organization Address City/[facility] [address]/ZIP Co de Phone Number [facility] Department [place] [address] * Valproic acid level, total (06/19/2024 9:28 PM MUTUAL FUNDS AGENT) [facility] Valproic Acid 76.0 50.0 - 100.0 mcg/mL Comment: Interpretive Data Therapeutic or toxic effects of anticonvulsant drugs may occur at different concentrations in different patients and the correlation between dose and clinical effect must be evaluated individually. Current interpretative data was last revised on 13. Blood 06/19/2024 9:28 PM MUTUAL FUNDS AGENT 06/19/2024 10:39 PM MUTUAL FUNDS AGENT Narrative [facility] - 06/19/2024 11:40 PM MUTUAL FUNDS AGENT Please get level before dose is given us Patricia Bryant MD LAB BLOOD ORDERABLES Final Res ult [facility] Department [place] [address] * Respiratory pathogen panel Nasopharyngeal (06/19/2024 9:10 PM MUTUAL FUNDS AGENT) [facility] Influenza A RNA Not Detected Not Detected Influenza B RNA Not Detected Not Detected [facility] RSV RNA Not Detected Not Detected [facility] COVID-19 RNA Not Detected Not Detected [facility] Coronavirus 229E RNA Not Detected Not Detected [facility] Coronavirus HKU1 RNA Not Detected Not Detected [facility] Coronavirus NL63 RNA Not Detected Not Detected [facility] Coronavirus OC43 RNA Not Detected Not Detected [facility] Adenovirus DNA Not Detected Not Detected [facility] Metapneumovirus RNA Not Detected Not Detected [facility] Rhinovirus/Enterov irus RNA Not Detected Not Detected [facility] Parainfluenza 1 RNA Not Detected Not Detected [facility] Parainfluenza 2 RNA Not Detected Not Detected [facility] Parainfluenza 3 RNA Not Detected Not Detected [facility] Parainfluenza 4 RNA Not Detected Not Detected [facility] B. pertussis DNA Not Detected Not Detected [facility] B. parapertussis DNA Not Detected Not Detected [facility] C. pneumoniae DNA Not Detected Not Detected [facility] M. pneumoniae DNA Not Detected Not Detected [facility] Nasopharyngeal 06/19/2024 9: 10 PM MUTUAL FUNDS AGENT 06/19/2024 10:06 PM MUTUAL FUNDS AGENT Katey BARNES [facility] - 06/19/2024 11:35 PM MUTUAL FUNDS AGENT Is the Patient experiencing symptoms consistent with COVID?->Yes Surveillance testing for transplant patient?->No Interpretive Data [employer] FilmArray Respiratory Panel (RP2.1) assay is a [...] assay has FDA clearance for testing of BAND INSTRUMENT MAKER swabs. The performance of additional specimen types has been assessed by the performing laboratory. The performance characteristics of this assay have been determined by [facility] Molecular Infectious Disease Laboratory. Current interpretive data was last revised on 22. Patricia Bryant MD LAB MICROBIOLOGY - GENERAL ORD ERABLES Final Result Performing Organization Address City/[facility] [address]/ZIP Co de Phone Number [facility] Department [place] [address] * (ABNORMAL) Aerobic culture and gram stain Tracheal aspirate Tracheal (06/19/2024 6:53 PM MUTUAL FUNDS AGENT) Direct Specimen Exam Stain: Abundant polymorphonuclear leukocytes seen. Few squamous epithelial cells seen. Moderate mixed bacterial domenico seen on Gram stain. Report Final Report: Greater than or equal to 100,000 colonies/ml of Staphylococcus aureus Methicillin resistant (MRSA) by penicillin binding protein 2a (PBP2a) testing. Plus growth of clinically insignificant bacterial domenico. (.) [facility] Organism STAPHYLOCOCCUS AUREUS [facility] Organism PLUS GROWTH OF CLINICALLY INSIGNIFICANT DOMENICO. [facility] Tracheal aspirate (Tracheal) 06/19/2024 6:53 PM MUTUAL FUNDS AGENT 06/19/2024 8:18 PM MUTUAL FUNDS AGENT Narrative [facility] - 06/27/2024 2:52 PM MUTUAL FUNDS AGENT Testing performed by [facility] ([phone]) Specimens submitted from normally sterile body sites [...] ORD ERABLES Final Result Performing Organization Address City/[facility] [address]/ZIP Co de Phone Number [facility] Department [place] [address] * XR Chest 1 View (06/19/2024 6:47 PM MUTUAL FUNDS AGENT) Anatomical Region Laterality Modality Body, Chest N/A Digital Radiogra phy 06/20/2024 2:42 PM MUTUAL FUNDS AGENT Impressions 06/20/2024 3:15 PM MUTUAL FUNDS AGENT Comparison is made to 06/19/2024 at 3:32 [...] Herve Payne M.D. Narrative 06/20/2024 3:15 PM MUTUAL FUNDS AGENT EXAMINATION: 1 view chest radiograph Procedure Note [...] pathogen panel Tracheal aspirate (06/19/2024 6:46 PM MUTUAL FUNDS AGENT) Influenza A RNA Not Detected Not Detected Influenza B RNA Not Detected Not Detected [facility] RSV RNA Not Detected Not Detected [facility] COVID-19 RNA Not Detected Not Detected [facility] Coronavirus 229E RNA Not Detected Not Detected [facility] Coronavirus HKU1 RNA Not Detected Not Detected [facility] Coronavirus NL63 RNA Not Detected Not Detected [facility] Coronavirus OC43 RNA Not Detected Not Detected [facility] Adenovirus DNA Not Detected Not Detected [facility] Metapneumovirus RNA Not Detected Not Detected [facility] Rhinovirus/Enterov irus RNA Not Detected Not Detected [facility] Parainfluenza 1 RNA Not Detected Not Detected [facility] Parainfluenza 2 RNA Not Detected Not Detected [facility] Parainfluenza 3 RNA Not Detected Not Detected [facility] Parainfluenza 4 RNA Not Detected Not Detected [facility] B. pertussis DNA Not Detected Not Detected [facility] B. parapertussis DNA Not Detected Not Detected [facility] C. pneumoniae DNA Not Detected Not Detected [facility] M. pneumoniae DNA Not Detected Not Detected [facility] Tracheal aspirate 06/19/2024 6:46 PM MUTUAL FUNDS AGENT 06/20/2024 7:55 AM MUTUAL FUNDS AGENT Narrative [facility] - 06/20/2024 8:58 AM MUTUAL FUNDS AGENT Is the Patient experiencing symptoms consistent with COVID?->Yes Surveillance testing for transplant patient?->No Interpretive Data [employer] FilmArray Respiratory Panel (RP2.1) assay is a [...] assay has FDA clearance for testing of B[employer] INSTRUMENT [employer]KER swabs. The performance of additional specimen types has been assessed by the performing laboratory. The performance characteristics of this assay have been determined by [facility] Molecular Infectious Disease Laboratory. Current interpretive data was last revised on 22. Patricia Bryant MD LAB MICROBIOLOGY - GENERAL ORD ERABLES Final Result [facility] Department [place] [address] * XR Abdomen Ap 1 Vw (06/19/2024 4:09 PM [employer]) Anatomical Region Laterality Modality Body, Abdomen N/A Digital Radiogra phy 06/19/2024 4:35 PM [employer] Impressions 06/19/2024 5:03 PM [employer]ENT Diffuse mild gaseous bowel distention, similar to the prior exam and could represent ileus. Partially imaged gastrostomy tube. Dictated by: Hunter Hernandez M.D. (Ramanan) The radiology attending physician has personally reviewed this study, and had reviewed and/or edited this written report and agrees with it. Electronically signed by: Lupillo Lugo M.D. Narrative 06/19/2024 5:03 PM [employer]ENT EXAMINATION: Abdomen, one view. HISTORY: Abdominal pain [...] XR Chest 1 View (06/19/2024 4:08 PM [employer]ENT) Anatomical Region Laterality Modality Body, Chest N/A Digital Radiogra phy 06/19/2024 4:21 PM [employer] Impressions 06/19/2024 4:21 PM [employer]ENT The current study is compared with the [...] Elif Patel M.D. Narrative 06/19/2024 4:21 PM [employer] EXAMINATION: 1 view chest radiograph Procedure Note [...] Final Result * eGFR (06/19/2024 2:47 PM [employer] AGENT) Pathologist [facility] [place] eGFR >90 [...] last reviewed 2021. Blood 06/19/2024 2:47 PM [employer] 06/19/2024 3:03 PM [employer] Patricia Bryant MD LAB BLOOD ORDERABLES Final Res ult [facility] Department [place] [address] * Differential, auto (06/19/2024 2:47 PM M[employer] AGENT) Pathologist [facility] [place] Neutrophil abs 5.5 1.5 - 6.5 K/cumm Imm gran abs 0.0 0.0 - 0.1 K/cumm [facility] Lymphocyte abs 0.9 0.8 - 3.3 K/cumm [facility] Monocyte abs 0.2 0.2 - 0.8 K/cumm [facility] Eosinophil abs 0.3 0.0 - 0.5 K/cumm [facility] Basophil abs 0.0 0.0 - 0.1 K/cumm [facility] Neutrophil pct 79.8 % [facility] Comment: Interpretive Data Percent cell count reference ranges are not reported, since discordance with absolute values may lead to misinterpretation of CBC data. Current Interpretive Data was last revised on 2017. Imm gran pct 0.4 % [facility] Comment: Interpretive Data Percent cell count reference ranges are not reported, since discordance with absolute values may lead to misinterpretation of CBC data. Current Interpretive Data was last revised on 2017. Lymphocyte pct 13.4 % [facility] Comment: Interpretive Data Percent cell count reference ranges are not reported, since discordance with absolute values may lead to misinterpretation of CBC data. Current Interpretive Data was last revised on 2017. Monocyte pct 2.5 % [facility] Comment: Interpretive Data Percent cell count reference ranges are not reported, since discordance with absolute values may lead to misinterpretation of CBC data. Current Interpretive Data was last revised on 2017. Eosinophil pct 3.8 % [facility] Comment: Interpretive Data Percent cell count reference ranges are not reported, since discordance with absolute values may lead to misinterpretation of CBC data. Current Interpretive Data was last revised on 2017. Basophil pct 0.1 % [facility] Comment: Interpretive Data Percent cell count reference ranges are not reported, since discordance with absolute values may lead to misinterpretation of CBC data. Current Interpretive Data was last revised on 2017. Blood 06/19/2024 2:47 PM [employer] 06/19/2024 3:04 PM [employer]ENT us Patricia Bryant MD LAB BLOOD ORDERABLES Final Res ult [facility] Department of Laboratories [place], [place] [id number] * (ABNORMAL) CBC with auto differential (06/19/2024 2:47 PM [employer]ENT) WBC 6.9 3.8 - 9.9 K/cumm Hgb 14.2 13.0 - 17.5 g/dL [facility] Hct 42.4 38.9 - 50.3 % [facility] Plt 135(L) 150 - 400 K/cumm [facility] MPV 12.6(H) 9.1 - 12.3 fL [facility] RBC 4.47 4.30 - 5.80 M/cumm [facility] MCV 94.9 81.3 - 96.4 fL [facility] MCH 31.8 27.1 - 33.3 pg [facility] MCHC 33.5 32.3 - 35.7 g/dL [facility] RDW CV 13.2 11.1 - 14.9 % [facility] RDW SD 46.5 35.7 - 48.1 fL [facility] NRBC abs 0.00 0.00 - 0.01 K/cumm [facility] Blood 06/19/2024 2:47 PM [employer] 06/19/2024 3:04 PM [employer] Patricia Bryant MD LAB BLOOD ORDERABLES Final Res ult Performing Organization Address City/[facility] [address]/ZIP Co de Phone Number [facility] Department [place] [address] * (ABNORMAL) Phosphorus (06/19/2024 2:47 PM M[employer]ENT) Phosphorus, pl 2.2(L) 2.3 - 4.5 mg/dL Blood 06/19/2024 2:47 PM [employer] 06/19/2024 3:03 PM [employer] Patricia Bryant MD LAB BLOOD ORDERABLES Final Res ult [facility] Department [place] [address] * Magnesium (06/19/2024 2:47 PM M[employer] AGENT) Pathologist [facility] [place] Magnesium 2.0 1.4 - 2.5 mg/dL Blood 06/19/2024 2:47 PM [employer] 06/19/2024 3:03 PM [employer]ENT us Patricia Bryant MD LAB BLOOD ORDERABLES Final Res ult [facility] Department [place] [address] * (ABNORMAL) Comprehensive metabolic panel (06/19/2024 2:47 PM [employer]) Sodium 144 135 - 145 mmol/L Potassium, pl 3.9 3.3 - 4.9 mmol/L [facility] Comment:Hemolyzed; Potassium value may be falsely elevated by as much as 0.3-0.5 mmol/L. Suggest redraw and reanalysis. Chloride 105 97 - 110 mmol/L [facility] CO2 29 22 - 32 mmol/L [facility] Anion gap 10 2 - 15 mmol/L [facility] BUN 7 6 - 25 mg/dL [facility] Creatinine 0.62(L) 0.80 - 1.30 mg/dL [facility] Glucose 113 70 - 199 mg/dL [facility] Comment: Interpretive Data Fasting glucose >/= [...] 2022. Calcium 9.5 8.5 - 10.3 mg/dL [facility] Bilirubin, total 0.2 0.1 - 1.2 mg/dL [facility] Protein, pl 7.2 6.5 - 8.5 g/dL [facility] Albumin 3.7 3.5 - 5.0 g/dL [facility] Alk phos 91 40 - 130 Units/L [facility] ALT 13 7 - 55 Units/L [facility] AST 28 10 - 50 Units/L [facility] Comment:Hemolyzed; result ma y be falsely elevated Blood 06/19/2024 2:47 PM [employer] 06/19/2024 3:03 PM [employer]ENT Patricia Bryant MD LAB BLOOD ORDERABLES Final Res ult Performing Organization Address City/[facility] [address]/ZIP Co de Phone Number [facility] Department [place] [address] * POCT glucose (06/19/2024 2:25 PM [employer]ENT) Glucose, POC 125 70 - 199 mg/dL Blood 06/19/2024 2:25 PM [employer]ENT 06/19/2024 2:25 PM [employer] AGENT Result [facility] Patricia Bryant MD LAB POCT ORDERABLES - DEVICE F inal Result Performing Organization Address [facility] [address]/[facility] Co de Phone Number [facility] Department [place] [address] * TNI with LIPID PANEL (08/24/2017 4:57 PM CDT) Troponin I < 0.300 0.000 - 0.300 ng/mL Comment: Reference using JERRICA Chemiluminescence Negative: Repeat in 4-6 hours as indicated. Triglycerides 34 0 - 199 mg/dL Comment:12 hr pc highly avani mmended for Triglyceride Cholesterol 129 0 - 199 mg/dL Comment: Borderline: 200-239 High Risk: >239 HDL Cholesterol 71 mg/dL 8 5:30 PM [facility] HISTORICAL RESULTS Comment: Reference Ranges: Males: >=40 mg/dL Females: >=50 mg/dL LDL Cholesterol, Calc 51 0 - 130 mg/dL Comment:High Risk > 159 mg/d L Cholesterol/HDL Ratio 1.8 08/24/2017 5:30 PM CDT [facility] [employer] HISTORICAL RESULTS Comment: Cholesterol / HDL Ratio 3.5:1 or less is desirable. Cholesterol / HDL Ratio greater than 5:1 is considered higher risk for developing heart disease. 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 Source: [facility] [employer] 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 Source: [facility] [employer] 09/18/22 Acinetobacter os 09/18/[address] [facility] Advance Directives For more information, please contact: [phone] Documents on File Type Date Recorded Patient Ext Js Developer Expl anation ADVANCE DIRECTIVE 10/08/2012 12:00 AM [facility] OF MEDICAL IMAGING TECH FINANCIAL/MEDICAL * Full Code (Latest Code Status on File) Date Activated Date Inactivated Comments 06/12/2024 3:22 PM 06/28/2024 9:30 PM * Full Code Date Activated Date Inactivated Comments 12/10/2020 9:05 AM 12/13/2020 10:44 PM Care Teams Pick Up Relationship Specialty Start Date End Date Marielena Smallwood MD [address] [facility] [place] [address] PCP - General Family Practice 07/08/24
--- OUTSIDE RECORDS SUMMARY | 2024-09-16 07:18 | XMS_ITS | Referral Summary ---
Author Organization [facility] Address [address] [place] [address] Care Team Providers Care Plum Packer Name Role Phone Marielena Smallwood MD Primary Care Provider Encounters Date Type Department Care Team Description 07/09/2024 7:23 PM CUTTING MACHINE TENDER - 07/09/2024 11:59 PM CUTTING MACHINE TENDER Hospital Encounter AMBULANCE BILLING [address] [place] [address] Discharge Disposition: Discharge to home or self care 07/08/2024 7:52 PM CUTTING MACHINE TENDER - 07/09/2024 7:48 AM CUTTING MACHINE TENDER Emergency [facility] Emergency Department [address] [place] [id number] Tri Martinez MD Thomas, Cherie Edwards MD Tracheostomy complication, unspecified complication type (HCC) (Primary Dx); Balanitis Discharge Disposition: Discharge to home or self care 06/12/2024 10:26 AM CUTTING MACHINE TENDER - 06/28/2024 5:25 PM CUTTING MACHINE TENDER Hospital Encounter [address] [phone] Shakila Jung MD Choi, Cheuk Ho Jeffrey, [...] 06/28/19 Active cloBAZam (ONFI) 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 Monitor with q4 accuchecks and SSI. Hypophosphatemia 06/27/2024 Assessment & Plan (06/28/2024 11:44 AM CUTTING MACHINE TENDER): <0.7 ? 2/2 refeeding syndrome. Started on neutraphos 2pkg QID 06/26. Still Phos<0.7 06/27. Tx with IV NaPhos 30mmoles and cont per tube replacement and monitor closely. -06/28: Phos=3.3, reduce nuetraphos to 1 PKG BID and monitor History of DVT (deep vein thrombosis) 06/26/2024 Assessment & Plan (06/26/2024 1:32 PM CUTTING MACHINE TENDER): -On anticoagulation with Eliquis 5 mg po BID for hx of DVT -per chart review hx of Left Subclavian vein DVT diagnosed 08/01/23 H/O: GI bleed 06/25/2024 Assessment & Plan (06/26/2024 1:32 PM CUTTING MACHINE TENDER): - [facility] ( 06-07-24 [...] 06/25/2024 Assessment & Plan (06/26/2024 1:36 PM CUTTING MACHINE TENDER): Tracheostomy dependence, has a Shiley #4 cuffed. Pt followed at [facility], per notes trach in place for pulmonary toilet due to his copious secretions and ongoing aspiration of his secretions. -needing frequent suctioning -sats stable on 28% FIO2 by HHTC -Was getting VEST at [facility] Low grade fever 06/20/2024 Assessment & Plan (06/26/2024 1:34 PM CUTTING MACHINE TENDER): Low-grade fever and tachycardia, softer BP after [...] 06/17/2024 Assessment & Plan (06/28/2024 11:43 AM CUTTING MACHINE TENDER): -patient at admission with a G tube, [...] 12/14/22 (additional documented GJ tube procedures at [facility] most recent 09/09/23). 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 Phos repleted. Copious oral secretions 06/13/2024 Assessment & Plan (06/26/2024 1:29 PM CUTTING MACHINE TENDER): Patient on chronic glycopyrrolate due to secretions, held at admission 07/01 to potential for constipation with plan to add back when he's had a bowel movements -resume on 06-19- hold on 06-20 due to somnolence. Suction PRN - restart glycopyrrolate 1mg BID 06/26 and monitor Abdominal pain 06/12/2024 Assessment & Plan (06/26/2024 1:23 PM CUTTING MACHINE TENDER): -p/w abdominal distention from SNF to ED on 06-12 ,reported biliary emesis per detention (approximately 300 cc) , not associated fevers or change in bowel habits. Feeding tube placed to gravity drainage in ED H&P notes regular bowel movements. CT scan on 06-12 in ED with stool in the rectum and sigmoid. [facility] likely constipation contributing to the patient's abdominal [...] 06/12/2024 Assessment & Plan (06/26/2024 12:08 AM CUTTING MACHINE TENDER): Complicated by left LE AKA. History of CVA (cerebrovascular accident) 2020 Assessment & Plan (06/26/2024 1:32 PM CUTTING MACHINE TENDER): - hx of RT parietal CVA- hx of dementia Cont asa and statin Essential hypertension 12/11/2020 Assessment & Plan (06/26/2024 1:30 PM CUTTING MACHINE TENDER): - on metoprolol and norvasc, held with soft BP 06-19 - resume metoprolol 06-21 -resume amlodipine 06-22 - Monitor Hyperlipidemia 12/11/2020 Assessment & Plan (06/12/2024 3:47 PM CUTTING MACHINE TENDER): - Continue home statin Seizure 12/10/2020 Assessment & Plan (06/26/2024 1:36 PM CUTTING MACHINE TENDER): History of seizure disorder secondary to traumatic brain injury. Currently on valproate, Vimpat, Keppra and Cobazam - Continue home medication, valproate level low at admit 48 on 06-12, 48 on 06-13, Valproic acid level 76 06-19 prior to dose, lacosamide level 1.4 on 06/12, 9.6 on 06-19 Followed by Neurology at [facility] Cognitive communication deficit 08/25/2020 Cerebrovascular accident 06/13/2019 [...] Smokeless Tobacco: Current Tobacco Cessation:Counseling Given: Yes [facility] Utilities Answer Date Recorded In the past 12 months has [email or web address] electric, gas, oil, or water company threatened [...] any clubs o r organizations such as caodaism groups, unions, fraternal or athletic groups, or [...] any time in the past 12 m [facility], were you homeless or living in a custodial (including now)? No 06/18/2024 Personal Safety Answer Date Recorded Have you ever been in or are you currently in a harmful physical or emotional relationship or is someone making you feel afraid or unsafe? Denies 07/08/2024 Sex and Gender Information Value Date Recorded Sex Assigned at Not on file Legal Sex Male 6:11 AM CUTTING MACHINE TENDER Gender Identity Not on file Sexual Orientation Not on file Last Filed Vital Signs Vital Sign Reading Time Taken Comments Blood Pressure 145/83 07/09/2024 6:00 AM CUTTING MACHINE TENDER Pulse 91 07/09/2024 6:00 AM CUTTING MACHINE TENDER Temperature 36.5 C (97.7 F) 07/09/2024 6:31 AM CUTTING MACHINE TENDER Respiratory Rate 10 07/09/2024 6:00 AM CUTTING MACHINE TENDER Oxygen Saturation 100% 07/09/2024 6:00 AM CUTTING MACHINE TENDER Inhaled Oxygen Concentration - - Weight 79.8 kg (176 lb) 07/09/2024 2:16 AM CUTTING MACHINE TENDER Height 182.9 cm (6') 07/09/2024 2:16 AM CUTTING MACHINE TENDER Body Mass Index 23.87 07/09/2024 2:16 AM CUTTING MACHINE TENDER Plan of Treatment Not on file Procedures Procedure Name Priority Date/Time Associated Diagnosis Comments POCT RAPID HIV ANTIBODY COMMUNITY SCREENING-ISSA ELIGIBLE STAT 07/09/2024 5:32 AM CUTTING MACHINE TENDER SEPSIS LACTATE WITH REFLEX Timed 07/09/2024 4:33 AM CUTTING MACHINE TENDER ED PERIPHERAL LINE INSERTION Routine 07/09/2024 1:18 AM CUTTING MACHINE TENDER SEPSIS LACTATE WITH REFLEX Timed 07/09/2024 1:15 AM CUTTING MACHINE TENDER RPR STAT 07/09/2024 1:15 AM CUTTING MACHINE TENDER N. GONORRHOEAE/C. TRACHOMATIS AMPLIFICATION STAT 07/09/2024 1:02 AM CUTTING MACHINE TENDER URINALYSIS AND REFLEX TO MICROSCOPIC AND CULTURE STAT 07/09/2024 1:02 AM CUTTING MACHINE TENDER ED PERIPHERAL LINE INSERTION Routine 07/08/2024 10:11 [address] CHEST ABDOMEN PELVIS W CONTRAST ED 07/08/2024 9:55 PM CUTTING MACHINE TENDER EGFR STAT 07/08/2024 8:56 PM CUTTING MACHINE TENDER DIFFERENTIAL AUTO STAT 07/08/2024 8:5 6 PM CUTTING MACHINE TENDER SEPSIS LACTATE WITH REFLEX STAT 07/08/2024 8:56 PM CUTTING MACHINE TENDER LIPASE STAT 07/08/2024 8:56 PM CUTTING MACHINE TENDER COMPREHENSIVE METABOLIC PANEL STAT 07/08/2024 8:56 PM CUTTING MACHINE TENDER CBC WITH AUTO DIFFERENTIAL STAT 07/08/2024 8:56 PM CUTTING MACHINE TENDER RESPIRATORY PATHOGEN PANEL STAT 07/08/2024 8:56 PM CUTTING MACHINE TENDER ECG 12-LEAD Routine 07/08/2024 8:28 PM CUTTING MACHINE TENDER XR CHEST 1 VIEW ED 07/08/2024 8:18 PM CUTTING MACHINE TENDER POCT GLUCOSE DEVICE Routine 06/28/2024 4 :24 PM CUTTING MACHINE TENDER POCT GLUCOSE DEVICE Routine 06/28/2024 1 2:30 PM CUTTING MACHINE TENDER POCT GLUCOSE DEVICE Routine 06/28/2024 7 :43 AM CUTTING MACHINE TENDER POCT GLUCOSE DEVICE Routine 06/28/2024 4 :01 AM CUTTING MACHINE TENDER POCT GLUCOSE DEVICE Routine 06/27/2024 1 1:28 PM CUTTING MACHINE TENDER EGFR Routine 06/27/2024 9:30 PM CUTTING MACHINE TENDER PHOSPHORUS Routine 06/27/2024 9:30 PM CUTTING MACHINE TENDER MAGNESIUM Routine 06/27/2024 9:30 PM CUTTING MACHINE TENDER BASIC METABOLIC PANEL Routine 06/27/2024 9:30 PM CUTTING MACHINE TENDER POCT GLUCOSE DEVICE Routine 06/27/2024 8 :39 PM CUTTING MACHINE TENDER POCT GLUCOSE DEVICE Routine 06/27/2024 5 :10 PM CUTTING MACHINE TENDER POCT GLUCOSE DEVICE Routine 06/27/2024 4 :27 PM CUTTING MACHINE TENDER POCT GLUCOSE DEVICE Routine 06/27/2024 1 :06 PM CUTTING MACHINE TENDER POCT GLUCOSE DEVICE Routine 06/27/2024 9 :59 AM CUTTING MACHINE TENDER EGFR Routine 06/26/2024 10:21 PM CUTTING MACHINE TENDER DIFFERENTIAL AUTO Routine 06/26/2024 10: 21 PM CUTTING MACHINE TENDER PHOSPHORUS Routine 06/26/2024 10:21 PM CUTTING MACHINE TENDER MAGNESIUM Routine 06/26/2024 10:21 PM CUTTING MACHINE TENDER CBC WITH AUTO DIFFERENTIAL Routine 06/26/2024 10:21 PM CUTTING MACHINE TENDER BASIC METABOLIC PANEL Routine 06/26/2024 10:21 PM CUTTING MACHINE TENDER HEPATITIS B SURFACE ANTIGEN Routine 06/26/2024 10:21 PM CUTTING MACHINE TENDER PHOSPHORUS Routine 06/26/2024 3:21 PM CUTTING MACHINE TENDER RPR Routine 06/26/2024 3:21 PM CUTTING MACHINE TENDER HEPATITIS C ANTIBODY Routine 06/26/2024 3:21 PM CUTTING MACHINE TENDER HIV 1/2 ANTIBODY PLUS P24 ANTIGEN Routine 06/26/2024 3:21 PM CUTTING MACHINE TENDER EGFR Routine 06/26/2024 12:16 AM CUTTING MACHINE TENDER PHOSPHORUS Routine 06/26/2024 12:16 AM CUTTING MACHINE TENDER MAGNESIUM Routine 06/26/2024 12:16 AM CUTTING MACHINE TENDER BASIC METABOLIC PANEL Routine 06/26/2024 12:16 AM CUTTING MACHINE TENDER POCT GLUCOSE DEVICE Routine 06/23/2024 1 1:36 AM CUTTING MACHINE TENDER CBC WITHOUT DIFFERENTIAL Timed 06/23/2024 9:07 AM CUTTING MACHINE TENDER VANCOMYCIN LEVEL TROUGH Routine 06/23/2024 9:00 AM CUTTING MACHINE TENDER EGFR Routine 06/23/2024 9:00 AM CUTTING MACHINE TENDER MAGNESIUM Routine 06/23/2024 9:00 AM CUTTING MACHINE TENDER PHOSPHORUS Routine 06/23/2024 9:00 AM CUTTING MACHINE TENDER BASIC METABOLIC PANEL Routine 06/23/2024 9:00 AM CUTTING MACHINE TENDER G TO GJ-TUBE REPLACEMENT IP Routine 06/22/2024 1:24 PM CUTTING MACHINE TENDER C. DIFFICILE TESTING Routine 06/21/2024 11:11 AM CUTTING MACHINE TENDER INFECTION PREVENTION VRE CULTURE Routine 06/21/2024 11:10 AM CUTTING MACHINE TENDER VANCOMYCIN LEVEL TROUGH Timed 06/21/2024 7:16 AM CUTTING MACHINE TENDER EGFR Routine 06/21/2024 5:03 AM CUTTING MACHINE TENDER DIFFERENTIAL AUTO Routine 06/21/2024 5:0 3 AM CUTTING MACHINE TENDER PHOSPHORUS Timed 06/21/2024 5:03 AM CUTTING MACHINE TENDER MAGNESIUM Routine 06/21/2024 5:03 AM CUTTING MACHINE TENDER COMPREHENSIVE METABOLIC PANEL Routine 06/21/2024 5:03 AM CUTTING MACHINE TENDER CBC WITH AUTO DIFFERENTIAL Routine 06/21/2024 5:03 AM CUTTING MACHINE TENDER MSSA/MRSA (STAPHYLOCOCCUS AUREUS) CULTURE Routine 06/20/2024 10:30 PM CUTTING MACHINE TENDER XR ABDOMEN AP 1 VIEW IP Routine 06/20/2024 10:29 AM CUTTING MACHINE TENDER URINALYSIS, MICROSCOPIC ONLY Routine 06/19/2024 9:34 PM CUTTING MACHINE TENDER URINALYSIS AND REFLEX TO MICROSCOPIC AND CULTURE Routine 06/19/2024 9:34 PM CUTTING MACHINE TENDER DIFFERENTIAL AUTO Routine 06/19/2024 9:2 8 PM CUTTING MACHINE TENDER CBC WITH AUTO DIFFERENTIAL Routine 06/19/2024 9:28 PM CUTTING MACHINE TENDER VALPROIC ACID LEVEL, TOTAL Timed 06/19/2024 9:28 PM CUTTING MACHINE TENDER LACOSAMIDE Routine 06/19/2024 9:28 PM CUTTING MACHINE TENDER RESPIRATORY PATHOGEN PANEL Routine 06/19/2024 9:10 PM CUTTING MACHINE TENDER AEROBIC CULTURE AND GRAM STAIN Routine 06/19/2024 6:53 PM CUTTING MACHINE TENDER XR CHEST 1 VIEW IP Routine 06/19/2024 6:47 PM CUTTING MACHINE TENDER RESPIRATORY PATHOGEN PANEL Routine 06/19/2024 6:46 PM CUTTING MACHINE TENDER XR ABDOMEN AP 1 VIEW IP Routine 06/19/2024 4:09 PM CUTTING MACHINE TENDER XR CHEST 1 VIEW IP Routine 06/19/2024 4:08 PM CUTTING MACHINE TENDER EGFR Timed 06/19/2024 2:47 PM CUTTING MACHINE TENDER DIFFERENTIAL AUTO Timed 06/19/2024 2:4 7 PM CUTTING MACHINE TENDER PHOSPHORUS Timed 06/19/2024 2:47 PM CUTTING MACHINE TENDER MAGNESIUM Timed 06/19/2024 2:47 PM CUTTING MACHINE TENDER COMPREHENSIVE METABOLIC PANEL Timed 06/19/2024 2:47 PM CUTTING MACHINE TENDER CBC WITH AUTO DIFFERENTIAL Timed 06/19/2024 2:47 PM CUTTING MACHINE TENDER POCT GLUCOSE DEVICE Routine 06/19/2024 2 :25 PM CUTTING MACHINE TENDER HEMOGLOBIN A1C Routine 06/12/2024 3:30 PM CUTTING MACHINE TENDER TNI WITH LIPID PANEL Routine 08/24/2017 4:57 PM CDT from Last 3 Months or Most Recently Relevant to Health Maintenance Results * POCT Rapid HIV Antibody Community Screening-Issa Eligible (07/09/2024 5:32 AM CUTTING MACHINE TENDER) [facility] Rapid HIV, POC Negative Negative Lot Number [id number] QC Control Line Acceptable Blood 07/09/2024 5:32 AM CUTTING MACHINE TENDER Naa Tam MD POINT OF CARE TEST ORDER NICHOLE Final Result * Sepsis Lactate w/ Reflex (07/09/2024 4:33 AM CUTTING MACHINE TENDER) Sepsis Lactate 2.0 0.7 - 2.0 mmol/L Blood 07/09/2024 4:33 AM CUTTING MACHINE TENDER 07/09/2024 4:42 AM CUTTING MACHINE TENDER Naa Tam MD LAB BLOOD ORDERABLES Fin al Result [facility] Department [place] [address] * ED PERIPHERAL LINE INSERTION (07/09/2024 1:18 AM CUTTING MACHINE TENDER) Narrative Cherie Damian MD - 07/09/2024 1:18 AM CUTTING MACHINE TENDER Atul Barba MD 07/09/2024 1:18 AM Peripheral [...] Sepsis Lactate w/ Reflex (07/09/2024 1:15 AM CUTTING MACHINE TENDER) Sepsis Lactate 2.8(H) 0.7 - 2.0 mmol/L Blood 07/09/2024 1:15 AM CUTTING MACHINE TENDER 07/09/2024 1:46 AM CUTTING MACHINE TENDER Naa Tam MD LAB BLOOD ORDERABLES Fin al Result Performing Organization Address [facility] Co de Phone Number [facility] [place] [address] * RPR Blood (07/09/2024 1:15 AM CUTTING MACHINE TENDER) RPR Nonreactive Nonreactive Blood 07/09/2024 1:15 AM CUTTING MACHINE TENDER 07/09/2024 1:40 AM CUTTING MACHINE TENDER Naa Tam MD LAB MICROBIOLOGY - GENER AL ORDERABLES Final Result Performing Organization Address [facility] de Phone Number [facility] [place] [address] * N. gonorrhoeae/C. trachomatis Amplification Urine (07/09/2024 1:02 AM CUTTING MACHINE TENDER) C. trachomatis Not Detected Not Detected [facility] N. gonorrhoeae Not Detected Not Detected [facility] Comment: Interpretive Data This assay detects Chlamydia trachomatis and Neisseria gonorrhoeae by nucleic acid amplification testing (NAAT). This assay has been cleared by the [place] Food and Drug administration. The performance characteristics of this test have been verified by the [facility] Molecular Infectious Disease laboratory. The performance characteristics of this test have not been evaluated in individuals less than 14 years of age. Current Interpretive Data last revised 2023. Urine (None) 07/09/2024 1:02 AM CUTTING MACHINE TENDER 07/09/2024 1:35 AM CUTTING MACHINE TENDER us Naa Tam MD LAB MICROBIOLOGY - GENER AL ORDERABLES Final Result Performing Organization Address [facility] [place] [address] [facility] * (ABNORMAL) Urinalysis reflex to microscopic and culture Urine, clean voided (07/09/2024 1:02 AM CUTTING MACHINE TENDER) Color, ur Straw Yellow Clarity, ur Clear Clear [facility] Specific gravity, ur >1.042(H) 1.003 - 1.030 [facility] pH, urine 7.5 [facility] Comment: Interpretive Data U rine pH is affected by diet, medications, systemic acid-base disturbances, and renal tubular function. pH may affect urinary stone formation. For example, urine pH below 6.0 may help reduce the tendency for calcium phosphate stones and pH greater than 6.0 may reduce the tendency for uric acid stone formation. Source: [facility] Current Interpretive Data was last revised on 2017 Protein, ur ql Trace Negative [facility] Glucose, ur ql Negative Negative [facility] Ketones, ur Negative Negative [facility] Bilirubin, ur Negative Negative [facility] Blood, ur Negative Negative [facility] Urobilinogen, ur <2.0 <2.0 mg/dL [facility] Nitrite, ur Negative Negative [facility] Leukocyte esterase, ur Negative Negative [facility] UA reflex comment Reflex conditions for microscopic UA and culture not met. [facility] Urine, clean voided 07/09/2024 1:02 AM CUTTING MACHINE TENDER 07/09/2024 1:15 AM CUTTING MACHINE TENDER Naa Tam MD LAB MICROBIOLOGY - [facility] ORDERABLES Final Result [facility] Department [place] [address] * ED PERIPHERAL LINE INSERTION (07/08/2024 10:11 PM CUTTING MACHINE TENDER) Narrative Tri Martinez MD - 07/08/2024 10:11 PM CUTTING MACHINE TENDER Atul Barba MD 07/08/2024 10:12 PM Peripheral [...] Abdomen Pelvis W Contrast (07/08/2024 9:55 PM CUTTING MACHINE TENDER) Anatomical Region Laterality Modality Body N/A Computed Tomogra phy 07/08/2024 10:3 2 PM CUTTING MACHINE TENDER Impressions 07/09/2024 7:23 AM CUTTING MACHINE TENDER Liquid stool within the colon, indicative of diarrheal state. Otherwise, no acute abnormalities in the abdomen or pelvis. Dictated by: Delia Morton MD The radiology attending physician has personally reviewed this study, and had reviewed and/or edited this written report and agrees with it. Electronically signed by: Marlon Kohler M.D. Narrative 07/09/2024 7:23 AM CUTTING MACHINE TENDER EXAMINATION: Computed tomography of the chest, abdomen [...] Sepsis Lactate w/ Reflex (07/08/2024 8:56 PM CUTTING MACHINE TENDER) Sepsis Lactate 2.4(H) 0.7 - 2.0 mmol/L Blood 07/08/2024 8:56 PM CUTTING MACHINE TENDER 07/08/2024 9:24 PM CUTTING MACHINE TENDER us Naa Tam MD LAB BLOOD ORDERABLES Fin al Result [facility] Department [place] [address] * eGFR (07/08/2024 8:56 PM CUTTING MACHINE TENDER) eGFR >90 >=60 mL/min/1. 73 m2 Comment: [...] last reviewed 2021. Blood 07/08/2024 8:56 PM CUTTING MACHINE TENDER 07/08/2024 9:26 PM CUTTING MACHINE TENDER us Naa Tam MD LAB BLOOD ORDERABLES Fin al Result [facility] Department [place] [address] * Differential, auto (07/08/2024 8:56 PM CUTTING MACHINE TENDER) Neutrophil abs 4.4 1.5 - 6.5 K/cumm Imm gran abs 0.0 0.0 - 0.1 K/cumm [facility] Lymphocyte abs 2.6 0.8 - 3.3 K/cumm [facility] Monocyte abs 0.5 0.2 - 0.8 K/cumm [facility] Eosinophil abs 0.5 0.0 - 0.5 K/cumm [facility] Basophil abs 0.0 0.0 - 0.1 K/cumm [facility] Neutrophil pct 54.7 % [facility] Comment: Interpretive Data Percent cell count reference ranges are not reported, since discordance with absolute values may lead to misinterpretation of CBC data. Current Interpretive Data was last revised on 2017. Imm gran pct 0.2 % [facility] Comment: Interpretive Data Percent cell count reference ranges are not reported, since discordance with absolute values may lead to misinterpretation of CBC data. Current Interpretive Data was last revised on 2017. Lymphocyte pct 32.1 % [facility] Comment: Interpretive Data Percent cell count reference ranges are not reported, since discordance with absolute values may lead to misinterpretation of CBC data. Current Interpretive Data was last revised on 2017. Monocyte pct 6.6 % [facility] Comment: Interpretive Data Percent cell count reference ranges are not reported, since discordance with absolute values may lead to misinterpretation of CBC data. Current Interpretive Data was last revised on 2017. Eosinophil pct 6.0 % [facility] Comment: Interpretive Data Percent cell count reference ranges are not reported, since discordance with absolute values may lead to misinterpretation of CBC data. Current Interpretive Data was last revised on 2017. Basophil pct 0.4 % [facility] Comment: Interpretive Data Percent cell count reference ranges are not reported, since discordance with absolute values may lead to misinterpretation of CBC data. Current Interpretive Data was last revised on 2017. Blood 07/08/2024 8:56 PM CUTTING MACHINE TENDER 07/08/2024 9:27 PM CUTTING MACHINE TENDER us Naa Tam MD LAB BLOOD ORDERABLES Fin al Result [facility] Department [place] [address] * Respiratory pathogen panel Nasopharyngeal (07/08/2024 8:56 PM CUTTING MACHINE TENDER) Pathologist [facility] [place] Influenza A RNA Not Detected Not Detected Influenza B RNA Not Detected Not Detected [facility] RSV RNA Not Detected Not Detected [facility] COVID-19 RNA Not Detected Not Detected [facility] Coronavirus 229E RNA Not Detected Not Detected [facility] Coronavirus HKU1 RNA Not Detected Not Detected [facility] Coronavirus NL63 RNA Not Detected Not Detected [facility] Coronavirus OC43 RNA Not Detected Not Detected [facility] Adenovirus DNA Not Detected Not Detected [facility] Metapneumovirus RNA Not Detected Not Detected [facility] Rhinovirus/Enterov irus RNA Not Detected Not Detected [facility] Parainfluenza 1 RNA Not Detected Not Detected [facility] Parainfluenza 2 RNA Not Detected Not Detected [facility] Parainfluenza 3 RNA Not Detected Not Detected [facility] Parainfluenza 4 RNA Not Detected Not Detected [facility] B. pertussis DNA Not Detected Not Detected [facility] B. parapertussis DNA Not Detected Not Detected [facility] C. pneumoniae DNA Not Detected Not Detected [facility] M. pneumoniae DNA Not Detected Not Detected [facility] Nasopharyngeal 07/08/2024 8: 56 PM CUTTING MACHINE TENDER 07/08/2024 9:25 PM CUTTING MACHINE TENDER [facility] - 07/08/2024 10:16 PM CUTTING MACHINE TENDER Is the Patient experiencing symptoms consistent with COVID?->Yes Surveillance testing for transplant patient?->No Interpretive Data The [employer] Film[employer] Respiratory Panel (RP2.1) assay is a [...] assay has FDA clearance for testing of MARKETING STRATEGIST swabs. The performance of additional specimen types has been assessed by the performing laboratory. The performance characteristics of this assay have been determined by [facility] Molecular Infectious Disease Laboratory. Current interpretive data was last revised on 22. us Naa Tam MD LAB MICROBIOLOGY - GENER AL ORDERABLES Final Result Performing Organization Address City/[facility]/ZIP Co de Phone Number [facility] Mixed [employer] ([id number]) [place] [address] * (ABNORMAL) CBC with auto differential (07/08/2024 8:56 PM CUTTING MACHINE TENDER) WBC 8.0 3.8 - 9.9 K/cumm Hgb 14.4 13.0 - 17.5 g/dL [facility] Hct 43.3 38.9 - 50.3 % [facility] Plt 236 150 - 400 K/cumm [facility] MPV 12.4(H) 9.1 - 12.3 fL [facility] RBC 4.49 4.30 - 5.80 M/cumm [facility] MCV 96.4 81.3 - 96.4 fL [facility] MCH 32.1 27.1 - 33.3 pg [facility] MCHC 33.3 32.3 - 35.7 g/dL [facility] RDW CV 13.5 11.1 - 14.9 % [facility] RDW SD 47.9 35.7 - 48.1 fL [facility] NRBC abs 0.00 0.00 - 0.01 K/cumm [facility] Blood 07/08/2024 8:56 PM CUTTING MACHINE TENDER 07/08/2024 9:27 PM CUTTING MACHINE TENDER us Naa Tam MD LAB BLOOD ORDERABLES Fin al Result Performing Organization Address City/[facility]/ZIP Co de Phone Number [facility] Department [place] [address] * Lipase (07/08/2024 8:56 PM CUTTING MACHINE TENDER) Lipase 32 10 - 99 Units/L Blood 07/08/2024 8:56 PM CUTTING MACHINE TENDER 07/08/2024 9:26 PM CUTTING MACHINE TENDER us Naa Tam MD LAB BLOOD ORDERABLES Fin al Result [facility] One [facility] Department [place] [address] * (ABNORMAL) Comprehensive metabolic panel (07/08/2024 8:56 PM CUTTING MACHINE TENDER) Pathologist [facility] [place] Sodium 141 135 - 145 mmol/L Potassium, pl 4.5 3.3 - 4.9 mmol/L [facility] Chloride 102 97 - 110 mmol/L [facility] CO2 28 22 - 32 mmol/L [facility] Anion gap 11 2 - 15 mmol/L [facility] BUN 15 6 - 25 mg/dL [facility] Creatinine 0.63(L) 0.80 - 1.30 mg/dL [facility] Glucose 110 70 - 199 mg/dL [facility] Comment: Interpretive Data Fasting glucose >/= [...] Calcium 10.1 8.5 - 10.3 mg/dL [facility] Bilirubin, total 0.2 0.1 - 1.2 mg/dL [facility] Protein, pl 8.0 6.5 - 8.5 g/dL [facility] Albumin 4.1 3.5 - 5.0 g/dL [facility] Alk phos 110 40 - 130 Units/L [facility] ALT 28 7 - 55 Units/L [facility] AST 26 10 - 50 Units/L [facility] Blood 07/08/2024 8:56 PM CUTTING MACHINE TENDER 07/08/2024 9:26 PM CUTTING MACHINE TENDER us Naa Tam MD LAB BLOOD ORDERABLES Fin al Result Performing Organization Address City/[facility]/ZIP Co de Phone Number [facility] One [facility] Department [place] [address] * ECG 12-LEAD (07/08/2024 8:28 PM CUTTING MACHINE TENDER) Narrative [facility] - 07/08/2024 8:28 PM CUTTING MACHINE TENDER Naa Tam MD 07/08/2024 8:30 PM ECG [...] Tam MD ECG ORDERABLES Final Re sult [facility] * XR Chest 1 View (07/08/2024 8:18 PM CUTTING MACHINE TENDER) Anatomical Region Laterality Modality Body, Chest N/A Computed Radiogr aphy 07/08/2024 8:28 PM CUTTING MACHINE TENDER Impressions 07/08/2024 9:56 PM CUTTING MACHINE TENDER Comparison is made to chest graft dated [...] Sekou Wolf M.D. Narrative 07/08/2024 9:56 PM CUTTING MACHINE TENDER EXAMINATION: 1 view chest radiograph Procedure Note [...] agrees with it. Electronically signed by: Sekou Wlof M.D. us Naa Tam MD IMG XR PROCEDURES Final Result * POCT glucose (06/28/2024 4:24 PM CUTTING MACHINE TENDER) Glucose, POC 191 70 - 199 mg/dL Blood 06/28/2024 4:24 PM CUTTING MACHINE TENDER 06/28/2024 4:24 PM CUTTING MACHINE TENDER us Kami Dupont MD LAB POCT ORDERABLES - DEV ICE Final Result [facility] One [facility] Department [place] [address] * POCT glucose (06/28/2024 12:30 PM CUTTING MACHINE TENDER) Glucose, POC 197 70 - 199 mg/dL Blood 06/28/2024 12:3 0 PM CUTTING MACHINE TENDER 06/28/2024 12:30 PM CUTTING MACHINE TENDER us Kami Dupont MD LAB POCT ORDERABLES - DEV ICE Final Result Performing Organization Address [facility] [place] [address] * POCT glucose (06/28/2024 7:43 AM CUTTING MACHINE TENDER) Glucose, POC 191 70 - 199 mg/dL Blood 06/28/2024 7:43 AM CUTTING MACHINE TENDER 06/28/2024 7:43 AM CUTTING MACHINE TENDER Kami Dupont MD LAB POCT ORDERABLES - DEV ICE Final Result Performing Organization Address [facility] [place] [address] * POCT glucose (06/28/2024 4:01 AM CUTTING MACHINE TENDER) Glucose, POC 173 70 - 199 mg/dL Blood 06/28/2024 4:01 AM CUTTING MACHINE TENDER 06/28/2024 4:01 AM CUTTING MACHINE TENDER us Kami Dupont MD LAB POCT ORDERABLES - DEV ICE Final Result Performing Organization Address [facility] [place] [address] * (ABNORMAL) POCT glucose (06/27/2024 11:28 PM CUTTING MACHINE TENDER) Glucose, POC 220(H) 70 - 199 mg/dL Comment:Use Protocol Glucose comment 1 Use Protocol [facility] Blood 06/27/2024 11:2 8 PM CUTTING MACHINE TENDER 06/27/2024 11:28 PM CUTTING MACHINE TENDER us Kami Dupont MD LAB POCT ORDERABLES - DEV ICE Final Result Performing Organization Address [facility]/ZIP Co de Phone Number [facility] Department [place] [address] * eGFR (06/27/2024 9:30 PM CUTTING MACHINE TENDER) eGFR >90 >=60 mL/min/1. 73 m2 Comment: [...] last reviewed 2021. Blood 06/27/2024 9:30 PM CUTTING MACHINE TENDER 06/27/2024 9:45 PM CUTTING MACHINE TENDER us Kami Dupont MD LAB BLOOD ORDERABLES Lulu l Result Performing Organization Address [facility] de Phone Number [facility] Department [place] [address] * Phosphorus (06/27/2024 9:30 PM CUTTING MACHINE TENDER) Phosphorus, pl 3.3 2.3 - 4.5 mg/dL Comment:Repeated and Verifie d Blood 06/27/2024 9:30 PM CUTTING MACHINE TENDER 06/27/2024 9:45 PM CUTTING MACHINE TENDER Kami Dupont MD LAB BLOOD ORDERABLES Lulu l Result Performing Organization Address [facility]/State/ZIP Co de Phone Number [facility] Department [place] [address] * Magnesium (06/27/2024 9:30 PM CUTTING MACHINE TENDER) [facility] Magnesium 1.9 1.4 - 2.5 mg/dL Blood 06/27/2024 9:30 PM CUTTING MACHINE TENDER 06/27/2024 9:45 PM CUTTING MACHINE TENDER Kami Dupont MD LAB BLOOD ORDERABLES Lulu brijesh Result [facility] Department [place] [address] * (ABNORMAL) Basic metabolic panel (06/27/2024 9:30 PM CUTTING MACHINE TENDER) [facility] Sodium 141 135 - 145 mmol/L Potassium, pl 4.4 3.3 - 4.9 mmol/L [facility] Chloride 105 97 - 110 mmol/L [facility] CO2 28 22 - 32 mmol/L [facility] Anion gap 8 2 - 15 mmol/L [facility] BUN 9 6 - 25 mg/dL [facility] Creatinine 0.47(L) 0.80 - 1.30 mg/dL [facility] Glucose 208(H) 70 - 199 mg/dL [facility] Comment: Interpretive Data Fasting glucose >/= [...] Calcium 8.9 8.5 - 10.3 mg/dL [facility] Blood 06/27/2024 9:30 PM CUTTING MACHINE TENDER 06/27/2024 9:45 PM CUTTING MACHINE TENDER Kami Dupont MD LAB BLOOD ORDERABLES Lulu l Result Performing Organization Address [facility] Co de Phone Number [facility] [place] [address] * POCT glucose (06/27/2024 8:39 PM CUTTING MACHINE TENDER) Glucose, POC 195 70 - 199 mg/dL Blood 06/27/2024 8:39 PM CUTTING MACHINE TENDER 06/27/2024 8:39 PM CUTTING MACHINE TENDER Kami Dupont MD LAB POCT ORDERABLES - DEV ICE Final Result Performing Organization Address [facility] Phone Number [facility] [place] [address] * POCT glucose (06/27/2024 5:10 PM CUTTING MACHINE TENDER) Glucose, POC 194 70 - 199 mg/dL Blood 06/27/2024 5:10 PM CUTTING MACHINE TENDER 06/27/2024 5:10 PM CUTTING MACHINE TENDER Kami Dupont MD LAB POCT ORDERABLES - DEV ICE Final Result Performing Organization Address [facility] de Phone Number [facility] [place] [address] * (ABNORMAL) POCT glucose (06/27/2024 4:27 PM CUTTING MACHINE TENDER) Glucose, POC 224(H) 70 - 199 mg/dL Blood 06/27/2024 4:27 PM CUTTING MACHINE TENDER 06/27/2024 4:27 PM CUTTING MACHINE TENDER us Kami Dupont MD LAB POCT ORDERABLES - DEV ICE Final Result Performing Organization Address [facility] Co de Phone Number [facility] Department [place] [address] * POCT glucose (06/27/2024 1:06 PM CUTTING MACHINE TENDER) Glucose, POC 173 70 - 199 mg/dL Blood 06/27/2024 1:06 PM CUTTING MACHINE TENDER 06/27/2024 1:06 PM CUTTING MACHINE TENDER Kami Dupont MD LAB POCT ORDERABLES - DEV ICE Final Result [facility] [place] [address] * POCT glucose (06/27/2024 9:59 AM CUTTING MACHINE TENDER) Glucose, POC 158 70 - 199 mg/dL Blood 06/27/2024 9:59 AM CUTTING MACHINE TENDER 06/27/2024 9:59 AM CUTTING MACHINE TENDER Kami Dupont MD LAB POCT ORDERABLES - DEV ICE Final Result Performing Organization Address City/[facility] Co [place] [address] * eGFR (06/26/2024 10:21 PM CUTTING MACHINE TENDER) eGFR >90 >=60 mL/min/1. 73 m2 Comment: [...] reviewed 2021. Blood 06/26/2024 10:2 1 PM CUTTING MACHINE TENDER 06/26/2024 10:53 PM CUTTING MACHINE TENDER us Kami Dupont MD LAB BLOOD ORDERABLES Lulu coley Result [facility] One [facility] Department [place] [address] * Differential, auto (06/26/2024 10:21 PM CUTTING MACHINE TENDER) Neutrophil abs 5.0 1.5 - 6.5 K/cumm Imm gran abs 0.0 0.0 - 0.1 K/cumm [facility] Lymphocyte abs 2.4 0.8 - 3.3 K/cumm [facility] Monocyte abs 0.8 0.2 - 0.8 K/cumm [facility] Eosinophil abs 0.4 0.0 - 0.5 K/cumm [facility] Basophil abs 0.0 0.0 - 0.1 K/cumm [facility] Neutrophil pct 58.2 % [facility] Comment: Interpretive Data Percent cell count reference ranges are not reported, since discordance with absolute values may lead to misinterpretation of CBC data. Current Interpretive Data was last revised on 2017. Imm gran pct 0.3 % [facility] Comment: Interpretive Data Percent cell count reference ranges are not reported, since discordance with absolute values may lead to misinterpretation of CBC data. Current Interpretive Data was last revised on 2017. Lymphocyte pct 27.9 % [facility] Comment: Interpretive Data Percent cell count reference ranges are not reported, since discordance with absolute values may lead to misinterpretation of CBC data. Current Interpretive Data was last revised on 2017. Monocyte pct 9.2 % [facility] Comment: Interpretive Data Percent cell count reference ranges are not reported, since discordance with absolute values may lead to misinterpretation of CBC data. Current Interpretive Data was last revised on 2017. Eosinophil pct 4.1 % [facility] Comment: Interpretive Data Percent cell count reference ranges are not reported, since discordance with absolute values may lead to misinterpretation of CBC data. Current Interpretive Data was last revised on 2017. Basophil pct 0.3 % [facility] Comment: Interpretive Data Percent cell count reference ranges are not reported, since discordance with absolute values may lead to misinterpretation of CBC data. Current Interpretive Data was last revised on 2017. Blood 06/26/2024 10:2 1 PM CUTTING MACHINE TENDER 06/26/2024 10:53 PM CUTTING MACHINE TENDER us Kami Dupont MD LAB BLOOD ORDERABLES Lulu coley Result [facility] One [facility] Department [place] [address] * (ABNORMAL) CBC with auto differential (06/26/2024 10:21 PM CUTTING MACHINE TENDER) Pathologist [facility] [place] WBC 8.6 3.8 - 9.9 K/cumm Hgb 13.1 13.0 - 17.5 g/dL [facility] Hct 39.1 38.9 - 50.3 % [facility] Plt 173 150 - 400 K/cumm [facility] MPV 13.1(H) 9.1 - 12.3 fL [facility] RBC 4.07(L) 4.30 - 5.80 M/cumm [facility] MCV 96.1 81.3 - 96.4 fL [facility] MCH 32.2 27.1 - 33.3 pg [facility] MCHC 33.5 32.3 - 35.7 g/dL [facility] RDW CV 13.5 11.1 - 14.9 % [facility] RDW SD 47.8 35.7 - 48.1 fL [facility] NRBC abs 0.00 0.00 - 0.01 K/cumm [facility] Blood 06/26/2024 10:2 1 PM CUTTING MACHINE TENDER 06/26/2024 10:53 PM CUTTING MACHINE TENDER Kami Dupont MD LAB BLOOD ORDERABLES Lulu l Result Performing Organization Address [facility] de Phone Number [facility] Department [place] [address] * Hepatitis B Surface Antigen Blood (06/26/2024 10:21 PM CUTTING MACHINE TENDER) HepBsAg Nonreactive Nonreactive Blood 06/26/2024 10:2 1 PM CUTTING MACHINE TENDER 06/26/2024 10:53 PM CUTTING MACHINE TENDER Kami Dupont MD LAB MICROBIOLOGY - GENERA L ORDERABLES Final Result Performing Organization Address [facility] Phone Number [facility] Department [place] [address] * (ABNORMAL) Phosphorus (06/26/2024 10:21 PM CUTTING MACHINE TENDER) Phosphorus, pl <0.7(L) 2.3 - 4.5 mg/dL Comment:Repeated and Verifie d Blood 06/26/2024 10:2 1 PM CUTTING MACHINE TENDER 06/26/2024 10:53 PM CUTTING MACHINE TENDER Kami Dupont MD LAB BLOOD ORDERABLES Lulu l Result Performing Organization Address [facility] de Phone Number [facility] Department [place] [address] * Magnesium (06/26/2024 10:21 PM CUTTING MACHINE TENDER) Magnesium 2.0 1.4 - 2.5 mg/dL Blood 06/26/2024 10:2 1 PM CUTTING MACHINE TENDER 06/26/2024 10:53 PM CUTTING MACHINE TENDER Kami Dupont MD LAB BLOOD ORDERABLES Lulu l Result Performing Organization Address [facility]/ZIP Co de Phone Number [facility] Department [place] [address] * (ABNORMAL) Basic metabolic panel (06/26/2024 10:21 PM CUTTING MACHINE TENDER) Pathologist [facility] [place] Sodium 141 135 - 145 mmol/L Potassium, pl 4.7 3.3 - 4.9 mmol/L [facility] Chloride 106 97 - 110 mmol/L [facility] CO2 28 22 - 32 mmol/L [facility] Anion gap 7 2 - 15 mmol/L [facility] BUN 11 6 - 25 mg/dL [facility] Creatinine 0.47(L) 0.80 - 1.30 mg/dL [facility] Glucose 213(H) 70 - 199 mg/dL [facility] Comment: Interpretive Data Fasting glucose >/= [...] Calcium 9.3 8.5 - 10.3 mg/dL [facility] Blood 06/26/2024 10:2 1 PM CUTTING MACHINE TENDER 06/26/2024 10:53 PM CUTTING MACHINE TENDER us Kami Dupont MD LAB BLOOD ORDERABLES Lulu coley Result [facility] One [facility] Department [place] [address] * HIV 1/2 Antibody plus p24 Antigen Blood (06/26/2024 3:21 PM CUTTING MACHINE TENDER) Pathologist [facility] [place] HIV 1/2 ab + p24 ag Nonreactive Nonreactive Comment:Nonreactive for HIV- 1 antigen and HIV-1/HIV-2 antibodies. No laboratory evidence of HIV infection. If acute HIV infection is suspected, consider testing for HIV-1 RNA. Current interpretive data was last revised on 22. Blood 06/26/2024 3:21 PM CUTTING MACHINE TENDER 06/26/2024 3:41 PM CUTTING MACHINE TENDER Kami Dupont MD LAB MICROBIOLOGY - GENERA L ORDERABLES Final Result Performing Organization Address [facility] de Phone Number [facility] [place] [address] * Hepatitis C antibody Blood (06/26/2024 3:21 PM CUTTING MACHINE TENDER) Pathologist [facility] [place] Hep C Ab Nonreactive Nonreactive Comment:Antibodies to HCV no t detected. Does NOT exclude the possibility of recent exposure to HCV. Current interpretive data was last revised on 22 Blood 06/26/2024 3:21 PM CUTTING MACHINE TENDER 06/26/2024 3:41 PM CUTTING MACHINE TENDER Kami Dupont MD LAB MICROBIOLOGY - GENERA L ORDERABLES Final Result Performing Organization Address [facility] de Phone Number [facility] [place] [address] * RPR Blood (06/26/2024 3:21 PM CUTTING MACHINE TENDER) Pathologist [facility] [place] RPR Nonreactive Nonreactive Blood 06/26/2024 3:21 PM CUTTING MACHINE TENDER 06/26/2024 3:41 PM CUTTING MACHINE TENDER Kami Dupont MD LAB MICROBIOLOGY - GENERA L ORDERABLES Final Result Performing Organization Address [facility] de Phone Number [facility] [place] [address] * (ABNORMAL) Phosphorus (06/26/2024 3:21 PM CUTTING MACHINE TENDER) Pathologist [facility] [place] Phosphorus, pl 0.7(L) 2.3 - 4.5 mg/dL Comment:Repeated and Verifie d Blood 06/26/2024 3:21 PM CUTTING MACHINE TENDER 06/26/2024 3:41 PM CUTTING MACHINE TENDER us Kami Dupont MD LAB BLOOD ORDERABLES Lulu l Result Performing Organization Address [facility] Co de Phone Number [facility] [place] [address] * eGFR (06/26/2024 12:16 AM CUTTING MACHINE TENDER) eGFR >90 >=60 mL/min/1. 73 m2 Comment: [...] reviewed 2021. Blood 06/26/2024 12:1 6 AM CUTTING MACHINE TENDER 06/26/2024 12:39 AM CUTTING MACHINE TENDER us Patricia Bryant MD LAB BLOOD ORDERABLES Final Res ult Performing Organization Address [facility] Co de Phone Number [facility] Department [place] [address] * (ABNORMAL) Phosphorus (06/26/2024 12:16 AM CUTTING MACHINE TENDER) Phosphorus, pl <0.7(L) 2.3 - 4.5 mg/dL Comment:Repeated and Verifie d Blood 06/26/2024 12:1 6 AM CUTTING MACHINE TENDER 06/26/2024 12:39 AM CUTTING MACHINE TENDER Patricia Bryant MD LAB BLOOD ORDERABLES Final Res ult Performing Organization Address [facility] Co de Phone Number [facility] [place] [address] * Magnesium (06/26/2024 12:16 AM CUTTING MACHINE TENDER) Pathologist [facility] [place] Magnesium 1.9 1.4 - 2.5 mg/dL Blood 06/26/2024 12:1 6 AM CUTTING MACHINE TENDER 06/26/2024 12:39 AM CUTTING MACHINE TENDER Patricia Bryant MD LAB BLOOD ORDERABLES Final Res ult Performing Organization Address [facility] de Phone Number [facility] [place] [address] * (ABNORMAL) Basic metabolic panel (06/26/2024 12:16 AM CUTTING MACHINE TENDER) Pathologist [facility] [place] Sodium 142 135 - 145 mmol/L Potassium, pl 4.4 3.3 - 4.9 mmol/L [facility] Comment:Hemolyzed; Potassium value may be falsely elevated by as much as 0.3-0.5 mmol/L. Suggest redraw and reanalysis. Chloride 109 97 - 110 mmol/L [facility] CO2 29 22 - 32 mmol/L [facility] Anion gap 4 2 - 15 mmol/L [facility] BUN 13 6 - 25 mg/dL [facility] Creatinine 0.53(L) 0.80 - 1.30 mg/dL [facility] Glucose 177 70 - 199 mg/dL [facility] Comment: Interpretive Data Fasting glucose >/= [...] Calcium 9.0 8.5 - 10.3 mg/dL [facility] Blood 06/26/2024 12:1 6 AM CUTTING MACHINE TENDER 06/26/2024 12:39 AM CUTTING MACHINE TENDER Patricia Bryant MD LAB BLOOD ORDERABLES Final Res ult Performing Organization Address City/[facility]/ZIP Co de Phone Number [facility] Department [place] [address] * POCT glucose (06/23/2024 11:36 AM CUTTING MACHINE TENDER) Glucose, POC 95 70 - 199 mg/dL Blood 06/23/2024 11:3 6 AM CUTTING MACHINE TENDER 06/23/2024 11:36 AM CUTTING MACHINE TENDER Patricia Bryant MD LAB POCT ORDERABLES - DEVICE F inal Result Performing Organization Address [facility] Co de Phone Number [facility] Department [place] [address] * (ABNORMAL) CBC without differential (06/23/2024 9:07 AM CUTTING MACHINE TENDER) [facility] Signature WBC 4.7 3.8 - 9.9 K/cumm Hgb 12.5(L) 13.0 - 17.5 g/dL [facility] Hct 37.4(L) 38.9 - 50.3 % [facility] Plt 145(L) 150 - 400 K/cumm [facility] MPV 12.6(H) 9.1 - 12.3 fL [facility] RBC 3.94(L) 4.30 - 5.80 M/cumm [facility] MCV 94.9 81.3 - 96.4 fL [facility] MCH 31.7 27.1 - 33.3 pg [facility] MCHC 33.4 32.3 - 35.7 g/dL [facility] RDW CV 12.9 11.1 - 14.9 % [facility] RDW SD 45.1 35.7 - 48.1 fL [facility] NRBC abs 0.00 0.00 - 0.01 K/cumm [facility] Blood 06/23/2024 9:07 AM CUTTING MACHINE TENDER 06/23/2024 9:28 AM CUTTING MACHINE TENDER us Patricia Bryant MD LAB BLOOD ORDERABLES Final Res ult [facility] One [facility] Department [place] [address] * eGFR (06/23/2024 9:00 AM CUTTING MACHINE TENDER) eGFR >90 >=60 mL/min/1. 73 m2 Comment: [...] last reviewed 2021. Blood 06/23/2024 9:00 AM CUTTING MACHINE TENDER 06/23/2024 10:59 AM CUTTING MACHINE TENDER us Patricia Bryant MD LAB BLOOD ORDERABLES Final Res ult [facility] [place] [address] * Phosphorus (06/23/2024 9:00 AM CUTTING MACHINE TENDER) Pathologist [facility] [place] Phosphorus, pl 2.3 2.3 - 4.5 mg/dL Blood 06/23/2024 9:00 AM CUTTING MACHINE TENDER 06/23/2024 10:59 AM CUTTING MACHINE TENDER us Patricia Bryant MD LAB BLOOD ORDERABLES Final Res ult Performing Organization Address City/[facility] [place] [address] * Magnesium (06/23/2024 9:00 AM CUTTING MACHINE TENDER) [facility] Magnesium 1.7 1.4 - 2.5 mg/dL Blood 06/23/2024 9:00 AM CUTTING MACHINE TENDER 06/23/2024 10:59 AM CUTTING MACHINE TENDER us Patricia Bryant MD LAB BLOOD ORDERABLES Final Res ult Performing Organization Address City/[facility]/ZIP Co de Phone Number [facility] Department of Laboratories [place] [address] * Vancomycin level trough (06/23/2024 9:00 AM CUTTING MACHINE TENDER) [facility] Vancomycin trough 15.2 10.0 - 20.0 mcg/mL Blood 06/23/2024 9:00 AM CUTTING MACHINE TENDER 06/23/2024 10:59 AM CUTTING MACHINE TENDER us Patricia Bryant MD LAB BLOOD [place]AB[place] [address] * (ABNORMAL) Basic metabolic panel (06/23/2024 9:00 AM CUTTING MACHINE TENDER) Sodium 143 135 - 145 mmol/L Potassium, pl 3.7 3.3 - 4.9 mmol/L [facility] Chloride 108 97 - 110 mmol/L [facility] CO2 28 22 - 32 mmol/L [facility] Anion gap 7 2 - 15 mmol/L [facility] BUN 3(L) 6 - 25 mg/dL [facility] Creatinine 0.50(L) 0.80 - 1.30 mg/dL [facility] Glucose 271(H) 70 - 199 mg/dL [facility] Comment: Interpretive Data Fasting glucose >/= [...] Calcium 9.0 8.5 - 10.3 mg/dL [facility] Blood 06/23/2024 9:00 AM CUTTING MACHINE TENDER 06/23/2024 10:59 AM CUTTING MACHINE TENDER us Patricia Bryant MD LAB BLOOD ORDERABLES Final Res ult [facility] One [facility] Department [place] [address] * IR G To GJ-Tube Replacement (06/22/2024 1:24 PM CUTTING MACHINE TENDER) Anatomical Region Laterality Modality Body N/A X-Ray Angiograph y 06/22/2024 1:47 PM CUTTING MACHINE TENDER Impressions 06/22/2024 4:13 PM CUTTING MACHINE TENDER Successful percutaneous 18 Fr 45 cm gastrojejunostomy [...] Sean Hillman M.D. Narrative 06/22/2024 4:13 PM CUTTING MACHINE TENDER EXAMINATION: GASTROJEJUNOSTOMY TUBE EXCHANGE HISTORY/INDICATION: 64 yo [...] procedure. TECHNIQUE: Prior to beginning the procedure, [place] Protocol was performed to confirm the patient's [...] placed in the proximal jejunum. A 18 Tanzanian, 45 cm long JELLY single/double lumen gastrojejunostomy [...] No complications are seen. Procedure Note Sean Hillman, MD - 06/22/2024 EXAMINATION: GASTROJEJUNOSTOMY TUBE EXCHANGE [...] procedure. TECHNIQUE: Prior to beginning the procedure, [place] Protocol was performed to confirm the patient's [...] placed in the proximal jejunum. A 18 Tanzanian, 45 cm long JELLY single/double lumen gastrojejunostomy [...] by: Sean Hillman M.D. Patricia Bryant MD [facility] [place] IR PROCEDURES Final Result * C. difficile testing Stool (06/21/2024 11:11 AM CUTTING MACHINE TENDER) [facility] Result Negative Negative Toxin Result Negative Negative [facility] C. diff result Negative, free toxin Negative, free toxin [facility] C. diff interp Negative for toxigenic Clostridioides (Clostridium) difficile. Analysis was performed using a glutamate dehydrogenase antigen detection assay combined with a C. difficile toxin detection assay. [facility] Stool 06/21/2024 11:1 1 AM CUTTING MACHINE TENDER 06/21/2024 12:55 PM CUTTING MACHINE TENDER Narrative [facility] 06/21/2024 2:38 PM CUTTING MACHINE TENDER Testing for C. difficile is not recommended within 4 days of a negative result, 10 days of a positive, or 24 hours after laxative administration. If this order is clinically indicated, contact the lab and enter the passcode to complete this order.->[id number] us Patricia Bryant MD LAB MICROBIOLOGY - GENERAL ORD ERABLES Final Result Performing Organization Address [facility] de Phone Number [facility] [place] [address] * Infection Prevention VRE Culture Stool (06/21/2024 11:10 AM CUTTING MACHINE TENDER) Report Final Report: Negative Stool 06/21/2024 11:1 0 AM CUTTING MACHINE TENDER 06/21/2024 2:41 PM CUTTING MACHINE TENDER Narrative [facility] 06/23/2024 11:15 PM CUTTING MACHINE TENDER Surveillance culture for Infection Prevention purposes only; results indicate colonization, not infection requiring treatment. Testing performed by [facility] ([phone]). Result Rose Bryant MD LAB MICROBIOLOGY - GENERAL ORD ERABLES Final Result Performing Organization Address [facility] Phone Number [facility] [place] [address] * Vancomycin level trough Draw trough 30 minutes prior to 4th dose. (06/21/2024 7:16 AM CUTTING MACHINE TENDER) Vancomycin trough 16.8 10.0 - 20.0 mcg/mL Blood 06/21/2024 7:16 AM CUTTING MACHINE TENDER 06/21/2024 7:27 AM CUTTING MACHINE TENDER Narrative [facility] 06/21/2024 8:10 AM CUTTING MACHINE TENDER Draw trough 30 minutes prior to 4th dose. us Patricia Bryant MD LAB BLOOD ORDERABLES Final Res ult Performing Organization Address [facility]/ZIP Co de Phone Number [facility] Department [place] [address] * eGFR (06/21/2024 5:03 AM CUTTING MACHINE TENDER) eGFR >90 >=60 mL/min/1. 73 m2 Comment: [...] last reviewed 2021. Blood 06/21/2024 5:03 AM CUTTING MACHINE TENDER 06/21/2024 5:14 AM CUTTING MACHINE TENDER us Patricia Bryant MD LAB BLOOD ORDERABLES Final Res ult [facility] Department [place] [address] * Differential, auto (06/21/2024 5:03 AM CUTTING MACHINE TENDER) Neutrophil abs 1.7 1.5 - 6.5 K/cumm Imm gran abs 0.0 0.0 - 0.1 K/cumm [facility] Lymphocyte abs 1.7 0.8 - 3.3 K/cumm [facility] Monocyte abs 0.6 0.2 - 0.8 K/cumm [facility] Eosinophil abs 0.3 0.0 - 0.5 K/cumm [facility] Basophil abs 0.0 0.0 - 0.1 K/cumm [facility] Neutrophil pct 38.8 % [facility] Comment: Interpretive Data Percent cell count reference ranges are not reported, since discordance with absolute values may lead to misinterpretation of CBC data. Current Interpretive Data was last revised on 2017. Imm gran pct 0.2 % [facility] Comment: Interpretive Data Percent cell count reference ranges are not reported, since discordance with absolute values may lead to misinterpretation of CBC data. Current Interpretive Data was last revised on 2017. Lymphocyte pct 40.5 % [facility] Comment: Interpretive Data Percent cell count reference ranges are not reported, since discordance with absolute values may lead to misinterpretation of CBC data. Current Interpretive Data was last revised on 2017. Monocyte pct 13.4 % [facility] Comment: Interpretive Data Percent cell count reference ranges are not reported, since discordance with absolute values may lead to misinterpretation of CBC data. Current Interpretive Data was last revised on 2017. Eosinophil pct 6.6 % [facility] Comment: Interpretive Data Percent cell count reference ranges are not reported, since discordance with absolute values may lead to misinterpretation of CBC data. Current Interpretive Data was last revised on 2017. Basophil pct 0.5 % [facility] Comment: Interpretive Data Percent cell count reference ranges are not reported, since discordance with absolute values may lead to misinterpretation of CBC data. Current Interpretive Data was last revised on 2017. Blood 06/21/2024 5:03 AM CUTTING MACHINE TENDER 06/21/2024 5:14 AM CUTTING MACHINE TENDER us Patricia Bryant MD LAB BLOOD ORDERABLES Final Res ult [facility] One [facility] Department [place] [address] * (ABNORMAL) CBC with auto differential (06/21/2024 5:03 AM CUTTING MACHINE TENDER) WBC 4.3 3.8 - 9.9 K/cumm Hgb 11.6(L) 13.0 - 17.5 g/dL [facility] Hct 34.5(L) 38.9 - 50.3 % [facility] Plt 132(L) 150 - 400 K/cumm [facility] MPV 11.3 9.1 - 12.3 fL [facility] RBC 3.53(L) 4.30 - 5.80 M/cumm [facility] MCV 97.7(H) 81.3 - 96.4 fL [facility] MCH 32.9 27.1 - 33.3 pg [facility] MCHC 33.6 32.3 - 35.7 g/dL [facility] RDW CV 13.4 11.1 - 14.9 % [facility] RDW SD 48.0 35.7 - 48.1 fL [facility] NRBC abs 0.00 0.00 - 0.01 K/cumm [facility] Blood 06/21/2024 5:03 AM CUTTING MACHINE TENDER 06/21/2024 5:14 AM CUTTING MACHINE TENDER Patricia Bryant MD LAB BLOOD ORDERABLES Final Res ult [facility] Department [place] [address] * Phosphorus (06/21/2024 5:03 AM CUTTING MACHINE TENDER) Phosphorus, pl 3.1 2.3 - 4.5 mg/dL Blood 06/21/2024 5:03 AM CUTTING MACHINE TENDER 06/21/2024 5:14 AM CUTTING MACHINE TENDER Patricia Bryant MD LAB BLOOD ORDERABLES Final Res ult [facility] [place] [address] * Magnesium (06/21/2024 5:03 AM CUTTING MACHINE TENDER) Magnesium 1.9 1.4 - 2.5 mg/dL Blood 06/21/2024 5:03 AM CUTTING MACHINE TENDER 06/21/2024 5:14 AM CUTTING MACHINE TENDER us Patricia Bryant MD LAB BLOOD ORDERABLES Final Res ult [facility] One [facility] Department [place] [address] * (ABNORMAL) Comprehensive metabolic panel (06/21/2024 5:03 AM CUTTING MACHINE TENDER) Sodium 145 135 - 145 mmol/L Potassium, pl 3.4 3.3 - 4.9 mmol/L [facility] Chloride 112(H) 97 - 110 mmol/L [facility] CO2 27 22 - 32 mmol/L [facility] Anion gap 6 2 - 15 mmol/L [facility] BUN 9 6 - 25 mg/dL [facility] Creatinine 0.57(L) 0.80 - 1.30 mg/dL [facility] Glucose 106 70 - 199 mg/dL [facility] Comment: Interpretive Data Fasting glucose >/= [...] 2022. Calcium 8.6 8.5 - 10.3 mg/dL [facility] Bilirubin, total 0.2 0.1 - 1.2 mg/dL [facility] Protein, pl 5.6(L) 6.5 - 8.5 g/dL [facility] Albumin 2.7(L) 3.5 - 5.0 g/dL [facility] Alk phos 61 40 - 130 Units/L [facility] ALT 15 7 - 55 Units/L [facility] AST 25 10 - 50 Units/L [facility] Blood 06/21/2024 5:03 AM CUTTING MACHINE TENDER 06/21/2024 5:14 AM CUTTING MACHINE TENDER Patricia Bryant MD LAB BLOOD ORDERABLES Final Res ult Performing Organization Address City/[facility]/ZIP Co de Phone Number [facility] Department [place] [address] * (ABNORMAL) MSSA/MRSA (Staphylococcus aureus) Culture Nasal (06/20/2024 10:30 PM CUTTING MACHINE TENDER) Report Final Report: Methicillin-resist ant Staphylococcus aureus Methicillin-resist ant Staphylococcus aureus #2 (.) Organism METHICILLIN-RESIST ANT STAPHYLOCOCCUS AUREUS [facility] Organism METHICILLIN-RESIST ANT STAPHYLOCOCCUS AUREUS [facility] Nasal 06/20/2024 10:3 0 PM CUTTING MACHINE TENDER 06/20/2024 10:43 PM CUTTING MACHINE TENDER Narrative [facility] - 06/23/2024 10:45 AM CUTTING MACHINE TENDER Testing performed by [facility] ([phone]). Patricia Bryant MD LAB MICROBIOLOGY - GENERAL ORD ERABLES Final Result Performing Organization Address [facility] Co de Phone Number [facility] Department [place] [address] * XR Abdomen Ap 1 Vw (06/20/2024 10:29 AM CUTTING MACHINE TENDER) Anatomical Region Laterality Modality Body, Abdomen N/A Computed Radiogr aphy 06/20/2024 10:5 3 AM CUTTING MACHINE TENDER Impressions 06/20/2024 11:51 AM CUTTING MACHINE TENDER Gastrostomy tube. Colonic distention is improved. No radiographic evidence of obstruction. Dictated by: Hunter Hernandez M.D. ([place]) The radiology attending physician has personally reviewed this study, and had reviewed and/or edited this written report and agrees with it. Electronically signed by: Byron Moya M.D. Narrative 06/20/2024 11:51 AM CUTTING MACHINE TENDER EXAMINATION: Abdomen, one view. HISTORY: Abdominal distention. [...] and culture Urine, bladder (06/19/2024 9:34 PM CUTTING MACHINE TENDER) Color, ur Straw Yellow Clarity, ur Clear Clear [facility] Specific gravity, ur 1.021 1.003 - 1.030 [facility] pH, urine 7.0 [facility] Comment: Interpretive Data U rine pH is affected by diet, medications, systemic acid-base disturbances, and renal tubular function. pH may affect urinary stone formation. For example, urine pH below 6.0 may help reduce the tendency for calcium phosphate stones and pH greater than 6.0 may reduce the tendency for uric acid stone formation. Source: [facility] Current Interpretive Data was last revised on [...] to microscopic UA will be performed. [facility] Urine, bladder 06/19/2024 9: 34 PM CUTTING MACHINE TENDER 06/19/2024 10:05 PM CUTTING MACHINE TENDER Patricia Bryant MD LAB MICROBIOLOGY - GENERAL ORD ERABLES Final Result Performing Organization Address City/[facility]/ZIP Co de Phone Number [facility] [place] [address] * Urinalysis, microscopic only (06/19/2024 9:34 PM CUTTING MACHINE TENDER) WBC, ur 0-5 0 - 5 /HPF RBC, ur 0-2 0 - 2 /HPF [facility] Epithelial cells, squamous, ur 1-5 0 - 5 /HPF [facility] Culture Reflex Comment Reflex conditions for urine culture (WBC >10) not met. [facility] Urine, bladder 06/19/2024 9: 34 PM CUTTING MACHINE TENDER 06/19/2024 10:05 PM CUTTING MACHINE TENDER Patricia Bryant MD LAB URINE ORDERABLES Final Res ult Performing Organization Address [facility] Co de Phone Number [facility] Department [place] [address] * (ABNORMAL) Differential, auto (06/19/2024 9:28 PM CUTTING MACHINE TENDER) Pathologist [facility] Neutrophil abs 6.0 1.5 - 6.5 K/cumm Imm gran abs 0.0 0.0 - 0.1 K/cumm [facility] Lymphocyte abs 0.7(L) 0.8 - 3.3 K/cumm [facility] Monocyte abs 0.2 0.2 - 0.8 K/cumm [facility] Eosinophil abs 0.2 0.0 - 0.5 K/cumm [facility] Basophil abs 0.0 0.0 - 0.1 K/cumm [facility] Neutrophil pct 84.1 % [facility] Comment: Interpretive Data Percent cell count reference ranges are not reported, since discordance with absolute values may lead to misinterpretation of CBC data. Current Interpretive Data was last revised on 2017. Imm gran pct 0.4 % [facility] Comment: Interpretive Data Percent cell count reference ranges are not reported, since discordance with absolute values may lead to misinterpretation of CBC data. Current Interpretive Data was last revised on 2017. Lymphocyte pct 10.1 % [facility] Comment: Interpretive Data Percent cell count reference ranges are not reported, since discordance with absolute values may lead to misinterpretation of CBC data. Current Interpretive Data was last revised on 2017. Monocyte pct 2.9 % [facility] Comment: Interpretive Data Percent cell count reference ranges are not reported, since discordance with absolute values may lead to misinterpretation of CBC data. Current Interpretive Data was last revised on 2017. Eosinophil pct 2.4 % [facility] Comment: Interpretive Data Percent cell count reference ranges are not reported, since discordance with absolute values may lead to misinterpretation of CBC data. Current Interpretive Data was last revised on 2017. Basophil pct 0.1 % [facility] Comment: Interpretive Data Percent cell count reference ranges are not reported, since discordance with absolute values may lead to misinterpretation of CBC data. Current Interpretive Data was last revised on 2017. Blood 06/19/2024 9:2 8 PM CUTTING MACHINE TENDER 06/19/2024 10:38 PM CUTTING MACHINE TENDER us Patricia Bryant MD LAB BLOOD ORDERABLES Final Res ult [facility] Department [place] [address] * Lacosamide level (06/19/2024 9:28 PM CUTTING MACHINE TENDER) Lacosamide 9.6 1.0 - 10.0 mcg/mL [facility] Comment: ADDITIONAL INFORMATION This test was developed and its performance characteristics determined by [facility] in a manner consistent with CLIA requirements. This test has not been cleared or approved by the U.S. Food and Drug Administration. Test Performed by: [facility] [place] [id number] [place] [address] Party Planner: Marianela Odonnell Ph.D.; CLIA# [id number] Blood 06/19/2024 9:28 PM CUTTING MACHINE TENDER 06/19/2024 11:01 PM CUTTING MACHINE TENDER Narrative [facility] - 06/22/2024 10:25 AM CUTTING MACHINE TENDER Please get level before lacosamide dose is given Patricia Bryant MD LAB BLOOD ORDERABLES Final Res ult Performing Organization Address City/[facility]/ZIP Co de Phone Number [facility] Department [place] [address] [facility] * (ABNORMAL) CBC with auto differential (06/19/2024 9:28 PM CUTTING MACHINE TENDER) [facility] WBC 7.1 3.8 - 9.9 K/cumm Hgb 12.5(L) 13.0 - 17.5 g/dL [facility] Hct 37.0(L) 38.9 - 50.3 % [facility] Plt 152 150 - 400 K/cumm [facility] MPV 12.6(H) 9.1 - 12.3 fL [facility] RBC 3.90(L) 4.30 - 5.80 M/cumm [facility] MCV 94.9 81.3 - 96.4 fL [facility] MCH 32.1 27.1 - 33.3 pg [facility] MCHC 33.8 32.3 - 35.7 g/dL [facility] RDW CV 13.4 11.1 - 14.9 % [facility] RDW SD 46.8 35.7 - 48.1 fL [facility] NRBC abs 0.00 0.00 - 0.01 K/cumm [facility] Blood 06/19/2024 9:28 PM CUTTING MACHINE TENDER 06/19/2024 10:38 PM CUTTING MACHINE TENDER Patricia Bryant MD LAB BLOOD ORDERABLES Final Res ult [facility] Department [place] [address] * Valproic acid level, total (06/19/2024 9:28 PM CUTTING MACHINE TENDER) [facility] Valproic Acid 76.0 50.0 - 100.0 mcg/mL Comment: Interpretive Data Therapeutic or toxic effects of anticonvulsant drugs may occur at different concentrations in different patients and the correlation between dose and clinical effect must be evaluated individually. Current interpretative data was last revised on 13. Blood 06/19/2024 9:28 PM CUTTING MACHINE TENDER 06/19/2024 10:39 PM CUTTING MACHINE TENDER Narrative [facility] - 06/19/2024 11:40 PM CUTTING MACHINE TENDER Please get level before dose is given us Patricia Bryant MD LAB BLOOD ORDERABLES Final Res ult [facility] One [facility] Department [place] [address] * Respiratory pathogen panel Nasopharyngeal (06/19/2024 9:10 PM CUTTING MACHINE TENDER) [facility] Influenza A RNA Not Detected Not Detected Influenza B RNA Not Detected Not Detected [facility] RSV RNA Not Detected Not Detected [facility] COVID-19 RNA Not Detected Not Detected [facility] Coronavirus 229E RNA Not Detected Not Detected [facility] Coronavirus HKU1 RNA Not Detected Not Detected [facility] Coronavirus NL63 RNA Not Detected Not Detected [facility] Coronavirus OC43 RNA Not Detected Not Detected [facility] Adenovirus DNA Not Detected Not Detected [facility] Metapneumovirus RNA Not Detected Not Detected [facility] Rhinovirus/Enterov irus RNA Not Detected Not Detected [facility] Parainfluenza 1 RNA Not Detected Not Detected [facility] Parainfluenza 2 RNA Not Detected Not Detected [facility] Parainfluenza 3 RNA Not Detected Not Detected [facility] Parainfluenza 4 RNA Not Detected Not Detected [facility] B. pertussis DNA Not Detected Not Detected [facility] B. parapertussis DNA Not Detected Not Detected [facility] C. pneumoniae DNA Not Detected Not Detected [facility] M. pneumoniae DNA Not Detected Not Detected [facility] Nasopharyngeal 06/19/2024 9: 10 PM CUTTING MACHINE TENDER 06/19/2024 10:06 PM CUTTING MACHINE TENDER Katey BARNES [facility] - 06/19/2024 11:35 PM CUTTING MACHINE TENDER Is the Patient experiencing symptoms consistent with COVID?->Yes Surveillance testing for transplant patient?->No Interpretive Data The [employer] FilmArray Respiratory Panel (RP2.1) assay is a [...] assay has FDA clearance for testing of MARKETING STRATEGIST swabs. The performance of additional specimen types has been assessed by the performing laboratory. The performance characteristics of this assay have been determined by [facility] Molecular Infectious Disease Laboratory. Current interpretive data was last revised on 22. Patricia Bryant MD LAB MICROBIOLOGY - GENERAL ORD ERABLES Final Result Performing Organization Address [facility] Co de Phone Number [facility] One [facility] Department [place] [address] * (ABNORMAL) Aerobic culture and gram stain Tracheal aspirate Tracheal (06/19/2024 6:53 PM CUTTING MACHINE TENDER) Direct Specimen Exam Stain: Abundant polymorphonuclear leukocytes seen. Few squamous epithelial cells seen. Moderate mixed bacterial domenico seen on Gram stain. Report Final Report: Greater than or equal to 100,000 colonies/ml of Staphylococcus aureus Methicillin resistant (MRSA) by penicillin binding protein 2a (PBP2a) testing. Plus growth of clinically insignificant bacterial domenico. (.) [facility] Organism STAPHYLOCOCCUS AUREUS [facility] Organism PLUS GROWTH OF CLINICALLY INSIGNIFICANT DOMENICO. [facility] Tracheal aspirate (Tracheal) 06/19/2024 6:53 PM CUTTING MACHINE TENDER 06/19/2024 8:18 PM CUTTING MACHINE TENDER Narrative [facility] - 06/27/2024 2:52 PM CUTTING MACHINE TENDER Testing performed by [facility] ([phone]) Specimens submitted from normally sterile body sites [...] - GENERAL ORD ERABLES Final Result [facility] One [facility] Department [place] [address] * XR Chest 1 View (06/19/2024 6:47 PM CUTTING MACHINE TENDER) Anatomical Region Laterality Modality Body, Chest N/A Digital Radiogra phy 06/20/2024 2:42 PM CUTTING MACHINE TENDER Impressions 06/20/2024 3:15 PM CUTTING MACHINE TENDER Comparison is made to 06/19/2024 at 3:32 [...] Herve Payne M.D. Narrative 06/20/2024 3:15 PM CUTTING MACHINE TENDER EXAMINATION: 1 view chest radiograph Procedure Note [...] pathogen panel Tracheal aspirate (06/19/2024 6:46 PM CUTTING MACHINE TENDER) Influenza A RNA Not Detected Not Detected Influenza B RNA Not Detected Not Detected [facility] RSV RNA Not Detected Not Detected [facility] COVID-19 RNA Not Detected Not Detected [facility] Coronavirus 229E RNA Not Detected Not Detected [facility] Coronavirus HKU1 RNA Not Detected Not Detected [facility] Coronavirus NL63 RNA Not Detected Not Detected [facility] Coronavirus OC43 RNA Not Detected Not Detected [facility] Adenovirus DNA Not Detected Not Detected [facility] Metapneumovirus RNA Not Detected Not Detected [facility] Rhinovirus/Enterov irus RNA Not Detected Not Detected [facility] Parainfluenza 1 RNA Not Detected Not Detected [facility] Parainfluenza 2 RNA Not Detected Not Detected [facility] Parainfluenza 3 RNA Not Detected Not Detected [facility] Parainfluenza 4 RNA Not Detected Not Detected [facility] B. pertussis DNA Not Detected Not Detected [facility] B. parapertussis DNA Not Detected Not Detected [facility] C. pneumoniae DNA Not Detected Not Detected [facility] M. pneumoniae DNA Not Detected Not Detected [facility] Tracheal aspirate 06/19/2024 6:46 PM CUTTING MACHINE TENDER 06/20/2024 7:55 AM CUTTING MACHINE TENDER Narrative [facility] - 06/20/2024 8:58 AM CUTTING MACHINE TENDER Is the Patient experiencing symptoms consistent with COVID?->Yes Surveillance testing for transplant patient?->No Interpretive Data The Red Guru FilmArray Respiratory Panel (RP2.1) assay is a [...] assay has FDA clearance for testing of MARKETING STRATEGIST swabs. The performance of additional specimen types has been assessed by the performing laboratory. The performance characteristics of this assay have been determined by [facility] Molecular Infectious Disease Laboratory. Current interpretive data was last revised on 22. Patricia Bryant MD LAB MICROBIOLOGY - GENERAL ORD ERABLES Final Result [facility] Department [place] [address] * XR Abdomen Ap 1 Vw (06/19/2024 4:09 PM CUTTING MACHINE TENDER) Anatomical Region Laterality Modality Body, Abdomen N/A Digital Radiogra phy 06/19/2024 4:35 PM CUTTING MACHINE TENDER Impressions 06/19/2024 5:03 PM CUTTING MACHINE TENDER Diffuse mild gaseous bowel distention, similar to the prior exam and could represent ileus. Partially imaged gastrostomy tube. Dictated by: Hunter Hernandez M.D. ([place]) The radiology attending physician has personally reviewed this study, and had reviewed and/or edited this written report and agrees with it. Electronically signed by: Lupillo Lugo M.D. Narrative 06/19/2024 5:03 PM CUTTING MACHINE TENDER EXAMINATION: Abdomen, one view. HISTORY: Abdominal pain [...] XR Chest 1 View (06/19/2024 4:08 PM CUTTING MACHINE TENDER) Anatomical Region Laterality Modality Body, Chest N/A Digital Radiogra phy 06/19/2024 4:21 PM CUTTING MACHINE TENDER Impressions 06/19/2024 4:21 PM CUTTING MACHINE TENDER The current study is compared with the [...] Elif Patel M.D. Narrative 06/19/2024 4:21 PM CUTTING MACHINE TENDER EXAMINATION: 1 view chest radiograph Procedure Note [...] Final Result * eGFR (06/19/2024 2:47 PM CUTTING MACHINE TENDER) Pathologist [facility] [place] eGFR >90 >=60 mL/min/1. 73 m2 Comment: [...] last reviewed 2021. Blood 06/19/2024 2:47 PM CUTTING MACHINE TENDER 06/19/2024 3:03 PM CUTTING MACHINE TENDER Patricia Bryant MD LAB BLOOD ORDERABLES Final Res ult [facility] Department [place] [address] * Differential, auto (06/19/2024 2:47 PM CUTTING MACHINE TENDER) Neutrophil abs 5.5 1.5 - 6.5 K/cumm Imm gran abs 0.0 0.0 - 0.1 K/cumm [facility] Lymphocyte abs 0.9 0.8 - 3.3 K/cumm [facility] Monocyte abs 0.2 0.2 - 0.8 K/cumm [facility] Eosinophil abs 0.3 0.0 - 0.5 K/cumm [facility] Basophil abs 0.0 0.0 - 0.1 K/cumm [facility] Neutrophil pct 79.8 % [facility] Comment: Interpretive Data Percent cell count reference ranges are not reported, since discordance with absolute values may lead to misinterpretation of CBC data. Current Interpretive Data was last revised on 2017. Imm gran pct 0.4 % [facility] Comment: Interpretive Data Percent cell count reference ranges are not reported, since discordance with absolute values may lead to misinterpretation of CBC data. Current Interpretive Data was last revised on 2017. Lymphocyte pct 13.4 % [facility] Comment: Interpretive Data Percent cell count reference ranges are not reported, since discordance with absolute values may lead to misinterpretation of CBC data. Current Interpretive Data was last revised on 2017. Monocyte pct 2.5 % [facility] Comment: Interpretive Data Percent cell count reference ranges are not reported, since discordance with absolute values may lead to misinterpretation of CBC data. Current Interpretive Data was last revised on 2017. Eosinophil pct 3.8 % [facility] Comment: Interpretive Data Percent cell count reference ranges are not reported, since discordance with absolute values may lead to misinterpretation of CBC data. Current Interpretive Data was last revised on 2017. Basophil pct 0.1 % [facility] Comment: Interpretive Data Percent cell count reference ranges are not reported, since discordance with absolute values may lead to misinterpretation of CBC data. Current Interpretive Data was last revised on 2017. Blood 06/19/2024 2:47 PM CUTTING MACHINE TENDER 06/19/2024 3:04 PM CUTTING MACHINE TENDER us Patricia Bryant MD LAB BLOOD ORDERABLES Final Res ult [facility] Department [place] [address] * (ABNORMAL) CBC with auto differential (06/19/2024 2:47 PM CUTTING MACHINE TENDER) WBC 6.9 3.8 - 9.9 K/cumm Hgb 14.2 13.0 - 17.5 g/dL [facility] Hct 42.4 38.9 - 50.3 % [facility] Plt 135(L) 150 - 400 K/cumm [facility] MPV 12.6(H) 9.1 - 12.3 fL [facility] RBC 4.47 4.30 - 5.80 M/cumm [facility] MCV 94.9 81.3 - 96.4 fL [facility] MCH 31.8 27.1 - 33.3 pg [facility] MCHC 33.5 32.3 - 35.7 g/dL [facility] RDW CV 13.2 11.1 - 14.9 % [facility] RDW SD 46.5 35.7 - 48.1 fL [facility] NRBC abs 0.00 0.00 - 0.01 K/cumm [facility] Blood 06/19/2024 2:47 PM CUTTING MACHINE TENDER 06/19/2024 3:04 PM CUTTING MACHINE TENDER Patricia Bryant MD LAB BLOOD ORDERABLES Final Res ult [facility] Department of [employer] [place], [place] [id number] * (ABNORMAL) Phosphorus (06/19/2024 2:47 PM CUTTING MACHINE TENDER) Phosphorus, pl 2.2(L) 2.3 - 4.5 mg/dL Blood 06/19/2024 2:47 PM CUTTING MACHINE TENDER 06/19/2024 3:03 PM CUTTING MACHINE TENDER Patricia Bryant MD LAB BLOOD ORDERABLES Final Res ult [facility] [place] [address] * Magnesium (06/19/2024 2:47 PM CUTTING MACHINE TENDER) Magnesium 2.0 1.4 - 2.5 mg/dL Blood 06/19/2024 2:47 PM CUTTING MACHINE TENDER 06/19/2024 3:03 PM CUTTING MACHINE TENDER us Patricia Bryant MD LAB BLOOD ORDERABLES Final Res ult [facility] One [facility] Department [place] [address] * (ABNORMAL) Comprehensive metabolic panel (06/19/2024 2:47 PM CUTTING MACHINE TENDER) Pathologist [facility] [place] Sodium 144 135 - 145 mmol/L Potassium, pl 3.9 3.3 - 4.9 mmol/L [facility] Comment:Hemolyzed; Potassium value may be falsely elevated by as much as 0.3-0.5 mmol/L. Suggest redraw and reanalysis. Chloride 105 97 - 110 mmol/L [facility] CO2 29 22 - 32 mmol/L [facility] Anion gap 10 2 - 15 mmol/L [facility] BUN 7 6 - 25 mg/dL [facility] Creatinine 0.62(L) 0.80 - 1.30 mg/dL [facility] Glucose 113 70 - 199 mg/dL [facility] Comment: Interpretive Data Fasting glucose >/= [...] Calcium 9.5 8.5 - 10.3 mg/dL [facility] Bilirubin, total 0.2 0.1 - 1.2 mg/dL [facility] Protein, pl 7.2 6.5 - 8.5 g/dL [facility] Albumin 3.7 3.5 - 5.0 g/dL [facility] Alk phos 91 40 - 130 Units/L [facility] ALT 13 7 - 55 Units/L [facility] AST 28 10 - 50 Units/L [facility] Comment:Hemolyzed; result ma y be falsely elevated Blood 06/19/2024 2:47 PM CUTTING MACHINE TENDER 06/19/2024 3:03 PM CUTTING MACHINE TENDER Result [facility] Patricia Bryant MD LAB BLOOD ORDERABLES Final Res ult Performing Organization Address [facility]/ZIP Co de Phone Number [facility] Department [place] [address] * POCT glucose (06/19/2024 2:25 PM CUTTING MACHINE TENDER) Glucose, POC 125 70 - 199 mg/dL Blood 06/19/2024 2:25 PM CUTTING MACHINE TENDER 06/19/2024 2:25 PM CUTTING MACHINE TENDER Result [facility] Patricia Bryant MD LAB POCT ORDERABLES - DEVICE F inal Result Performing Organization Address [facility] de Phone Number [facility] Department [place] [address] * TNI with LIPID PANEL (08/24/2017 4:57 PM CDT) Pathologist [facility] [place] Troponin I < 0.300 0.000 - 0.300 ng/mL 08/24/2017 5:29 PM [facility] HISTORICAL RESULTS Comment: Reference using JERRICA Chemiluminescence Negative: Repeat in 4-6 hours as indicated. Triglycerides 34 0 - 199 mg/dL 08/24/2017 5:30 PM [facility] HISTORICAL RESULTS Comment:12 hr pc highly avani mmended for Triglyceride Cholesterol 129 0 - 199 mg/dL 08/24/2017 5:30 PM [facility] [employer] HISTORICAL RESULTS Comment: Borderline: 200-239 High Risk: >239 HDL Cholesterol 71 mg/dL 8 5:30 PM [facility] HISTORICAL RESULTS Comment: Reference Ranges: Males: >=40 mg/dL Females: >=50 mg/dL LDL Cholesterol, Calc 51 0 - 130 mg/dL 08/24/2017 5:30 PM CDT [facility] HISTORICAL RESULTS Comment:High Risk > 159 mg/d L Cholesterol/HDL Ratio 1.8 08/24/2017 5:30 PM CDT [facility] HISTORICAL RESULTS Comment: Cholesterol / HDL Ratio 3.5:1 or less is desirable. Cholesterol / HDL Ratio greater than 5:1 is considered higher risk for developing heart disease. 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 Source: [facility] [place] 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 Source: [facility] [place] 09/18/22 Acinetobacter os 09/18/[address] 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
--- NOTE | 2024-09-16 07:35 | ED_ITS ---
HPI - Nausea/Vomiting/Diarrhea General Chief complaint: Nausea/Vomiting/Diarrhea Stated complaint: back pain/vomiting x 1 Time Seen by Provider: 09/16/24 06:56 History of Present Illness HPI Narrative: Patient presenting here with back pain and nausea and trouble breathing, by the time he arrived here he was feeling better. To me he is denying any complaints; he has no nausea, abdominal pain, back or chest pain, or difficulty breathing. Related Data Home Medications ?Medication ?Instructions ?Recorded ?Confirmed ?Last Taken ?Type metoprolol tartrate 25 mg tablet 25 mg feeding tube BID 12/18/22 03/30/24 Unknown History polyethylene glycol 3350 17 17 g feeding tube DAILY PRN 12/18/22 03/30/24 Unknown History gram/dose oral powder Constipation bisacodyl 10 mg rectal suppository 10 mg RECTAL DAILY PRN Constipation 02/11/23 03/30/24 Unknown History sennosides 8.6 mg tablet (senna) 8.6 mg feeding tube BID 02/11/23 03/30/24 Unknown History guaifenesin 100 mg/5 mL oral liquid 300 mg feeding tube BID PRN Cough 07/08/23 03/30/24 Unknown History magnesium hydroxide 400 mg/5 mL 30 ml PO HS PRN Constipation 12/13/23 03/30/24 Unknown History oral suspension (Milk of Magnesia) artificial tears solution eye drops 1 drp ophthalmic (eye) PRN PRN Dry 02/10/24 03/30/24 Unknown History Eye(S) atorvastatin 40 mg tablet 40 mg PO HS 02/10/24 03/30/24 Unknown History calcium carbonate 500 mg/5 mL (as 1,250 mg PO Q6H PRN Heartburn 02/10/24 03/30/24 Unknown History calcium carb 1,250 mg/5 mL) oral suspension clobazam 10 mg tablet 10 mg feeding tube DAILY 02/10/24 03/30/24 Unknown History famotidine 20 mg tablet 20 mg feeding tube BID 02/10/24 03/30/24 Unknown History folic acid 1 mg tablet 1 mg feeding tube DAILY 02/10/24 03/30/24 Unknown History ipratropium 0.5 mg-albuterol 3 mg 3 ml inhalation Q6H PRN Shortness 02/10/24 03/30/24 Unknown History (2.5 mg base)/3 mL nebulization Of Breath soln lacosamide 10 mg/mL oral solution 200 mg feeding tube BID 02/10/24 03/30/24 Unknown History levetiracetam 100 mg/mL oral 1,500 mg feeding tube BID 02/10/24 03/30/24 Unknown History solution magnesium citrate (Citroma oral 296 ml PO DAILY PRN Constipation 02/10/24 03/30/24 Unknown History solution) thiamine HCl (vitamin B1) 100 mg 100 mg feeding tube DAILY 02/10/24 03/30/24 Unknown History tablet valproic acid (as sodium salt) 250 1,250 mg feeding tube QID 02/10/24 03/30/24 Unknown History mg/5 mL oral solution acetaminophen 650 mg/20.3 mL oral 650 mg feeding tube Q4H PRN Pain 03/30/24 03/30/24 Unknown History suspension (Scale Score 1-3) apixaban 5 mg tablet (Eliquis) 5 mg feeding tube BID 03/30/24 03/30/24 Unknown History aspirin 81 mg chewable tablet 81 mg feeding tube DAILY 03/30/24 03/30/24 Unknown History Allergies Allergy/AdvReac Type Severity Reaction Status Date / Time clonazepam Allergy Unknown Unknown Verified 08/20/24 06:49 Review of Systems 2 Review of Systems: All systems reviewed & are unremarkable except as noted in HPI and below PMFSH Past Medical History Medical History Deep venous thrombosis of upper extremity Benign prostatic hyperplasia Cerebrovascular accident Residual expressive aphasia, dysphagia, and left-sided weakness. Chronic obstructive pulmonary disease Esophageal diverticulum Gastroparesis Iron deficiency anemia Vascular dementia with psychotic disturbance Seizure disorder Surgical History Surgical History History of gastrostomy tube placement History of tracheostomy History of left above knee amputation Family History Family History Other Unknown family medical history Social History Social History Social History: Surrogate medical decision maker: [place] Babak, sibling. Code status: Full code. 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 EYES: EOMI, conjunctiva normal ENT: Hearing grossly intact LUNGS: Nonlabored breathing. Clear to auscultation bilaterally HEART: [Regular rate and rhythm] ABD: [Soft], [nontender to palpation] EXT: Normal range of motion SKIN: [No rashes or lesions.] NEURO: [Alert. No gross focal sensory or strength deficits.] PSYCH: Normal affect Course Vital Signs Vital signs: Vital Signs Temperature 98.1 F 09/16/24 05:27 Pulse Rate 99 09/16/24 05:27 Respiratory Rate 19 09/16/24 05:27 Blood Pressure 152/110 H 09/16/24 05:27 Pulse Oximetry 97 09/16/24 05:27 Oxygen Delivery Room Air 09/16/24 05:27 Temperature 98.1 F 09/16/24 05:27 Pulse Rate 80 09/16/24 08:21 Respiratory Rate 18 09/16/24 08:21 Blood Pressure 148/82 H 09/16/24 08:21 Pulse Oximetry 99 09/16/24 08:21 Oxygen Delivery High Flow Therapy with Trach Collar 09/16/24 07:35 Oxygen Flow Rate 20 09/16/24 07:35 Fraction of Inspired Oxygen 09/16/24 07:35 MDM - Nausea/Vomiting/Diarrhea MDM Narrative Medical decision making narrative: 1) Differential diagnosis: Pneumonia, gastroenteritis, etc 2) Comorbidities: Trach dependent, 3) External notes reviewed: Nursing notes, admission records 4) History sources independently obtained from: care home 5) Discussion of management with: 6) Independent interpretation of: CXR does not show any obvious PTX or consolidations 7) Diagnostic tests or therapies considered but not ordered: 8) Social determinants of health: nonverbal at baseline, from custodial 9) Shared decision makinM p/w some CLEOPATRA and nausea and back pain from custodial. Given IVF, zofran here. Labs obtained wnl. On re-eval he denies any complaints; able to communicate that he feels better. Stable for dc w/ return precautions. Lab Data 09/16/24 05:35 09/16/24 05:35 Labs: Lab Results 09/16/24 Range/Units 05:35 WBC 6.6 (4.5-10.0) K/mm3 RBC 4.21 L (4.6-6.20) M/mm3 Hgb 13.7 L (14.0-18.0) g/dL Hct 42.5 (42.0-52.0) % MCV 101.0 H (80-100) fl MCH 32.5 (26-34) pg MCHC 32.2 (32-36) g/dl RDW 13.2 (11.5-14.5) % Plt Count 129 L (150-375) k/mm3 MPV 12.8 H (7.4-10.4) fl Immature Gran % (Auto) 0.3 (0-0.5) % Neut % (Auto) 54.2 (45.5-73.1) % Lymph % (Auto) 28.9 (18.3-44.2) % [place] % (Auto) 8.9 H (2.6-8.5) % Eos % (Auto) 7.4 H (0-4.4) % Baso % (Auto) 0.3 (0.2-1.2) % Lymph # (Auto) 1.91 (0.9-3.2) K/mm3 [place] # (Auto) 0.6 (0.1-0.6) K/mm3 Eos # (Auto) 0.5 H (0-0.3) K/mm3 Baso # (Auto) 0.0 (0.0-0.1) K/mm3 Abs Immat Gran (auto) 0.02 (0.00-0.031) K/mm3 Absolute Neuts (auto) 3.6 (1.3-6.7) K/mm3 Absolute Nucleated RBC 0.000 (0.0-0.012) K/mm3 Nucleated RBC % 0.0 (0.0-0.2) % % Immature Plt Fraction 12.9 H (0.9-11.2) % Sodium 141 (137-145) mmol/L Potassium 4.3 (3.4-5.0) mmol/L Chloride 104 (98-107) mmol/L Carbon Dioxide 29 (22-30) mmol/L Anion Gap 8 (4-12) mmol/L BUN 15 (9-20) mg/dL Creatinine 0.60 L (0.7-1.3) mg/dL Estim Creat Clear Calc 96 ml/min Estimated GFR > 60 (59 - ) Glucose 95 (65-110) mg/dL Calcium 9.4 (8.4-10.2) mg/dL Magnesium 2.1 (1.6-2.3) mg/dL Total Bilirubin 0.5 (0.2-1.3) mg/dL AST 25 (17-59) U/L ALT 21 (6-50) U/L Alkaline Phosphatase 103 (38-126) U/L Total Protein 8.0 (6.3-8.2) g/dL Albumin 4.1 (3.5-5.1) g/dL Lipase 90 (23-300) U/L Discharge Plan Discharge Clinical Impression: Shortness of breath, Nausea Patient Disposition: NH Fpc/Asst Living Condition: Stable Instructions: Acute Nausea and Vomiting (ED), Shortness of Breath (ED) Patient Language: Yoruba Prescriptions: No Action bisacodyl 10 mg Suppository 10 mg RECTAL DAILY PRN (Reason: Constipation) Rx Instructions: if no results for MOM sennosides [senna] 8.6 mg Tablet 8.6 mg feeding tube BID guaifenesin 100 mg/5 mL liquid 300 mg feeding tube BID PRN (Reason: Cough) magnesium hydroxide [Milk of Magnesia] 400 mg/5 mL Suspension 30 ml PO HS PRN (Reason: Constipation) Rx Instructions: If no BM in 3 days azithromycin 250 mg tablet 250 mg PO DAILY 4 Days Qty: 4 0RF Rx Instructions: start on day 2 of therapy (08/21/24); already received first dose 08/20/24 polyethylene glycol 3350 17 gram/dose powder 17 g feeding tube DAILY PRN (Reason: Constipation) metoprolol tartrate 25 mg tablet 25 mg feeding tube BID atorvastatin 40 mg tablet 40 mg PO HS ipratropium-albuterol 0.5 mg-3 mg(2.5 mg base)/3 mL solution for nebulization 3 ml INHALATION Q6H PRN (Reason: Shortness Of Breath) artificial tears solution Drops 1 drp OPHTHALMIC (EYE) PRN PRN (Reason: Dry Eye(S)) Rx Instructions: instill 1 drop per eye as needed for dry eye thiamine HCl (vitamin B1) 100 mg Tablet 100 mg feeding tube DAILY famotidine 20 mg tablet 20 mg feeding tube BID valproic acid (as sodium salt) 250 mg/5 mL solution 1,250 mg feeding tube QID magnesium citrate [Citroma] Solution 296 ml PO DAILY PRN (Reason: Constipation) Rx Instructions: if no results from enema folic acid 1 mg tablet 1 mg feeding tube DAILY levetiracetam 100 mg/mL solution 1,500 mg feeding tube BID calcium carbonate 500 mg/5 mL (1,250 mg/5 mL) Suspension 1,250 mg PO Q6H PRN (Reason: Heartburn) lacosamide 10 mg/mL solution 200 mg feeding tube BID clobazam 10 mg tablet 10 mg feeding tube DAILY Eliquis 5 mg Tablet 5 mg feeding tube BID aspirin 81 mg Tablet,Chewable 81 mg feeding tube DAILY acetaminophen 650 mg/20.3 mL Suspension 650 mg feeding tube Q4H PRN (Reason: Pain (Scale Score 1-3)) meropenem 1 gram Recon Soln 1 g IV Q8H Qty: 8 0RF Follow-up/Referrals: Lauro,MD Burke [Primary Care Provider] - 2 Days
== END 2024-09-16 08:45 ==
PROVIDERS: Emergency Medicine; Emergency Provider Emergency Medicine; PCP Internal Medicine
DX: R11.0 Nausea (principal); R06.02 Shortness of breath; F01.52 Vascular dementia, unspecified severity, with psychotic disturbance; I69.920 Aphasia following unspecified cerebrovascular disease; I69.991 Dysphagia following unspecified cerebrovascular disease; R13.10 Dysphagia, unspecified; I69.954 Hemiplegia and hemiparesis following unspecified cerebrovascular disease affecting left non-dominant side; G40.909 Epilepsy, unspecified, not intractable, without status epilepticus; J44.9 Chronic obstructive pulmonary disease, unspecified; D50.9 Iron deficiency anemia, unspecified; K31.84 Gastroparesis; N40.0 Benign prostatic hyperplasia without lower urinary tract symptoms; Z93.0 Tracheostomy status; Z93.1 Gastrostomy status; Z86.718 Personal history of other venous thrombosis and embolism; Z87.891 Personal history of nicotine dependence; Z89.612 Acquired absence of left leg above knee; Z79.01 Long term (current) use of anticoagulants; Z79.899 Other long term (current) drug therapy; Z79.82 Long term (current) use of aspirin
CPT/HCPCS: 36415; 71045; 80053; 83690; 83735; 85025; 85055; 96361; 96374; 99284; J2405; J7030

== ENCOUNTER 2024-09-16 21:11 | Emergency (ER) | payer OTHER, SELFPAY ==
[2024-09-16 21:12] VITALS: BP 130/93; PULSE 96; RESP 26; TEMP 36.6; O2SAT 98
[2024-09-16 21:18] VITALS: PULSE 89; O2SAT 96
--- NOTE | 2024-09-16 21:19 | PC.NURSE ---
Upon arrival pt requests to be suctioned. RN at bedside to be suctioned. O2 wnl at this time.
--- NOTE | 2024-09-16 21:52 | ECG_ITS ---
Test Date: 2024-09-16 22:24:41 Measurements Intervals [place] Rate: 82 P: 60 ME: 165 QRS: -27 QRSD: 82 T: 64 QT: 348 QTc: 407 Interpretive Statements SINUS RHYTHM POSSIBLE RIGHT VENTRICULAR CONDUCTION DELAY CONSIDER ANTERIOR INFARCT, AGE INDETERMINATE INFERIOR INFARCT, AGE INDETERMINATE BORDERLINE T WAVE ABNORMALITY- ANTERIOR LEADS BASELINE ARTIFACT- I, II, AVR ABNORMAL ECG Compared to ECG 07/14/2024 01:55:45 HEART RATE HAS DECREASED Electronically Signed On 09-17-2024 06:27:00 CDT by Dave Hernandez D.O.
[2024-09-16 22:00] VITALS: BP 132/89; PULSE 94; RESP 22; O2SAT 95
--- OUTSIDE RECORDS SUMMARY | 2024-09-16 22:14 | XMS_ITS | Encounter Summary ---
Author Organization [facility] Address [address] [place] [address] Care Team Providers Care Conservation Or Heritage Architect Name Role Phone Frank Toure MD Unavailable Kayla Porras MASH TUB COOKER Primary Care Provider [phone] Misael Maradiaga DO Primary Care Provider [phone] Joyce Luevano MASH TUB COOKER Primary Care Provider Unavaila Marielena Adame MD Primary Care Provider [phone] Encounter Details Date Type Department Care Team (Latest Contact Info) Description 02/01/2018 Abstract [facility] , Jerica Cordon [...] on filedocumented in this encounter Care Teams Conservation [employer] Heritage Architect Relationship Specialty Start Date End Date Kayla Porras NP [address] [place] [address] PCP - General 06/25/16 09/27/18 Misael Maradiaga DO [address] [place] [address] PCP - General FAMILY PRACTICE 09/28/18 01/13/20 Joyce [place] [address] [place] [address] PCP - General NURSE PRACTITIONER 01/14/20 10/26/23 Marielena Smallwood MD [address] [place] [id number] PCP - General FAMILY PRACTICE 10/27/23 Frank Toure MD [facility] [place] [address] [employer] CARDIOVASCULAR DISEASE 05/30/16 documented as of this encounter
--- OUTSIDE RECORDS SUMMARY | 2024-09-16 22:14 | XMS_ITS | Clinical Summary ---
Author Organization [facility] Direct Access Software Address [address] [place] [address] Care Team Providers Care Homoeopath Name Role Phone Elizabeth Sullivan RN Unavailable [phone] Dany Monsivais MD Primary Care Provider [phone] Source Comments [facility] Direct Access Software,non-owned Affiliates and Associated Physician Practices is amultiple site organization consisting of ambulatory clinics and hospital sitesin [place], [place], [place] and [place]. This disclosure is being madepursuant to the Care Everywhere program and may not contain all information available regarding this patient. Last updated 18.[facility] Direct Access Software Allergies Active Allergy Reactions Criticality Noted [...] No evidence of infection Urine cultures from [facility] last month were negative growth as [...] Team Description 09/07/2024 Travel 08/02/2024 4:31 PM SHIPYARD PAINTING SUPERVISOR - 08/08/2024 8:48 PM CDT Hospital Encounter [facility] [address] [place] [address] Elmo Johnson MD Mayer, Joshua C, DO Arshad, Iqra, MD Archuleta, Lydia, MD Joag, Madhura, MD Internal Medicine Discharge Disposition: Group Home or Supportive Care 08/02/2024 1:23 AM SHIPYARD PAINTING SUPERVISOR - 08/02/2024 8:15 AM SHIPYARD PAINTING SUPERVISOR Emergency [facility] [address] [place] [phone] Arthur Marinelli MD Other tracheostomy complication (Primary Dx); Abdominal pain, unspecified abdominal location Discharge Disposition: [facility] 08/02/2024 Travel 07/27/2024 3:54 PM SHIPYARD PAINTING SUPERVISOR - 07/28/2024 6:53 AM SHIPYARD PAINTING SUPERVISOR Emergency [facility] [address] [place] [phone] Serjio Vilchis MD Feeding intolerance (Primary Dx); Generalized abdominal pain; Chronic pulmonary aspiration, initial encounter Discharge Disposition: [facility] 07/27/2024 Travel 07/18/2024 4:15 PM SHIPYARD PAINTING SUPERVISOR - 07/18/2024 4:45 PM SHIPYARD PAINTING SUPERVISOR Surgery [facility] [address] [place] [phone] Clifton Trinh MD EGD(ISO) 07/18/2024 4:05 PM SHIPYARD PAINTING SUPERVISOR Anesthesia Event [facility] [address] [place] [phone] Teri Trent MD Dobbs, Kristin L, KENNEL ATTENDANT-VETERINARY VIROLOGIST 07/16/2024 9:23 PM SHIPYARD PAINTING SUPERVISOR - 07/19/2024 5:51 PM SHIPYARD PAINTING SUPERVISOR Hospital Encounter [facility] [address] ACUTE [address] [place] [phone] Quan Gan MD Arshad, Iqra, MD Bastin, Taylor J, MD Morreale, Peter J III, MD Emergency Medicine Discharge Disposition: [facility] 07/16/2024 Travel from Last 3 Months Immunizations Immunization Administration Dates Next Due [employer] primary monoval ent 12+ yr 0.3mL Purple [...] all 08/06/2024 [facility] [place] [facility] Occupat ional Health - Occupational Stress [...] in a halfway (including now)? No 06/19/2023 Housing Stability Vital [...] time in the past 12 m [facility], were you homeless or living in a halfway (including now)? No 08/06/2024 Sex and Gender Information Value Date Recorded Sex Assigned at Not on file Legal Sex Male 5:07 PM SHIPYARD PAINTING SUPERVISOR Gender Identity Not on file Sexual Orientation [...] 72.6 kg (160 lb) 08/04/2024 12:00 AM SHIPYARD PAINTING SUPERVISOR Height 175.3 cm (5' 9.02 ) 08/04/2024 12:[address] Body Mass Index 23.62 08/04/2024 12:00 AM SHIPYARD PAINTING SUPERVISOR Plan of Treatment Upcoming Encounters Date Type Department Care Team (Late st Contact Info) Description 10/03/2024 11:15 AM CDT Office Visit [facility] - Vascular Surgery [address] [place] [address], [place] [phone] Anna Membreno MD [facility] S [facility] [address] [place] [address] 12/05/2024 1:00 PM CDT Office Visit [facility] - Neurology [address] [place] [address], [place] [address] Sean Raymundo DO [address] [place] [address] [address] [place] [address] Health Maintenance Due Date Last [...] POINT OF CARE Routine 08/05/2024 1:43 AM SHIPYARD PAINTING SUPERVISOR CBC W/O DIFFERENTIAL Routine 08/05/2024 1:02 AM SHIPYARD PAINTING SUPERVISOR Nausea without vomiting PT-INR [facility] Routine 08/05/2024 1:02 AM SHIPYARD PAINTING SUPERVISOR Nausea without vomiting MAGNESIUM BLOOD Routine 08/05/2024 1:02 AM SHIPYARD PAINTING SUPERVISOR Nausea without vomiting RENAL FUNCTION PANEL Routine 08/05/2024 1:02 AM SHIPYARD PAINTING SUPERVISOR Nausea without vomiting CBC W/O DIFFERENTIAL Routine 08/04/2024 12:12 PM SHIPYARD PAINTING SUPERVISOR Nausea without vomiting PSA FREE + TOTAL PANEL AM Draw 08/04/2024 12:12 PM SHIPYARD PAINTING SUPERVISOR Acute cystitis without hematuria PT-INR [facility] Routine 08/04/2024 12:12 PM SHIPYARD PAINTING SUPERVISOR Nausea without vomiting MAGNESIUM BLOOD Routine 08/04/2024 12:12 PM SHIPYARD PAINTING SUPERVISOR Nausea without vomiting RENAL FUNCTION PANEL Routine 08/04/2024 12:12 PM SHIPYARD PAINTING SUPERVISOR Nausea without vomiting CULTURE URINE STAT 08/03/2024 8:53 AM SHIPYARD PAINTING SUPERVISOR Acute cystitis without hematuria HEMOGLOBIN A1C RINKU 08/03/2024 5:18 AM SHIPYARD PAINTING SUPERVISOR Nausea without vomiting CBC W/O DIFFERENTIAL STAT 08/03/2024 5:18 AM SHIPYARD PAINTING SUPERVISOR Nausea without vomiting PT-INR [facility] STAT 08/03/2024 5:18 AM SHIPYARD PAINTING SUPERVISOR Nausea without vomiting MAGNESIUM BLOOD STAT 08/03/2024 5:18 AM SHIPYARD PAINTING SUPERVISOR Nausea without vomiting RENAL FUNCTION PANEL STAT 08/03/2024 5:18 AM SHIPYARD PAINTING SUPERVISOR Nausea without vomiting TYPE + SCREEN PANEL STAT 08/02/2024 9 :[address] [address] CHEST ABDOMEN PELVIS W CONT STAT 08/02/2024 9:42 PM SHIPYARD PAINTING SUPERVISOR Nausea without vomiting XR CHEST 1VW PORTABLE STAT 08/02/2024 5:15 PM SHIPYARD PAINTING SUPERVISOR Nausea without vomiting URINALYSIS REFLEX TO MICROSCOPIC NO CULTURE STAT 08/02/2024 5:08 PM SHIPYARD PAINTING SUPERVISOR PT-INR [facility] STAT 08/02/2024 5:08 PM SHIPYARD PAINTING SUPERVISOR COMPREHENSIVE METABOLIC PANEL STAT 08/02/2024 5:08 PM SHIPYARD PAINTING SUPERVISOR LIPASE BLOOD STAT 08/02/2024 5:08 PM SHIPYARD PAINTING SUPERVISOR CBC W AUTO DIFFERENTIAL STAT 08/02/2024 5:08 PM SHIPYARD PAINTING SUPERVISOR XR CHEST 1VW PORTABLE STAT 08/02/2024 2:33 AM SHIPYARD PAINTING SUPERVISOR Abdominal pain, unspecified abdominal location LIPASE BLOOD STAT 08/02/2024 2:03 AM SHIPYARD PAINTING SUPERVISOR COMPREHENSIVE METABOLIC PANEL STAT 08/02/2024 2:03 AM SHIPYARD PAINTING SUPERVISOR CBC W AUTO DIFFERENTIAL STAT 08/02/2024 2:03 AM SHIPYARD PAINT[employer] CT CHEST ABDOMEN PELVIS W CONT STAT 07/28/2024 12:25 AM SHIPYARD PAINTING SUPERVISOR Generalized abdominal pain COMPREHENSIVE METABOLIC PANEL STAT 07/27/2024 6:26 PM SHIPYARD PAINTING SUPERVISOR CBC W AUTO DIFFERENTIAL STAT 07/27/2024 6:26 PM SHIPYARD PAINTING SUPERVISOR TROPONIN-I HIGH SENSITIVE BASELINE + 1HR STAT 07/27/2024 6:26 PM SHIPYARD PAINTING SUPERVISOR MAGNESIUM BLOOD STAT 07/27/2024 6:26 PM SHIPYARD PAINTING SUPERVISOR LIPASE BLOOD STAT 07/27/2024 6:26 PM SHIPYARD PAINTING SUPERVISOR EKG 12-LEAD Routine 07/27/2024 5:34 PM SHIPYARD PAINTING SUPERVISOR Generalized abdominal pain XR CHEST 1VW PORTABLE Routine 07/27/2024 12:39 PM SHIPYARD PAINTING SUPERVISOR Nausea and vomiting, unspecified vomiting type GLUCOSE - POINT OF CARE Routine 07/19/2024 5:00 PM SHIPYARD PAINTING SUPERVISOR GLUCOSE - POINT OF CARE Routine 07/19/2024 12:10 PM SHIPYARD PAINTING SUPERVISOR GLUCOSE - POINT OF CARE Routine 07/19/2024 8:10 AM SHIPYARD PAINTING SUPERVISOR CBC W AUTO DIFFERENTIAL Routine 07/19/2024 5:27 AM SHIPYARD PAINTING SUPERVISOR Coffee ground emesis GLUCOSE - POINT OF CARE Routine 07/19/2024 3:34 AM SHIPYARD PAINTING SUPERVISOR GLUCOSE - POINT OF CARE Routine 07/18/2024 11:33 PM SHIPYARD PAINTING SUPERVISOR GLUCOSE - POINT OF CARE Routine 07/18/2024 8:01 PM SHIPYARD PAINTING SUPERVISOR PATHOLOGY TISSUE Routine 07/18/2024 4:27 PM SHIPYARD PAINTING SUPERVISOR Coffee ground emesis [place] ED EGD FLEX TRANSORAL DX 07/18/2024 4:00 PM SHIPYARD PAINTING SUPERVISOR Coffee ground emesis EGD Routine 07/18/2024 3:52 PM SHIPYARD PAINTING SUPERVISOR GLUCOSE - POINT OF CARE Routine 07/18/2024 12:11 PM SHIPYARD PAINTING SUPERVISOR GLUCOSE - POINT OF CARE Routine 07/18/2024 11:44 AM SHIPYARD PAINTING SUPERVISOR CBC W AUTO DIFFERENTIAL Routine 07/18/2024 8:07 AM SHIPYARD PAINTING SUPERVISOR Coffee ground emesis PT-INR [facility] Routine 07/18/2024 8:07 AM SHIPYARD PAINTING SUPERVISOR Nausea and vomiting, unspecified vomiting type VALPROIC ACID LEVEL Routine 07/18/2024 8 :07 AM SHIPYARD PAINTING SUPERVISOR Nausea and vomiting, unspecified vomiting type PHOSPHORUS BLOOD AM Draw 07/18/2024 8:07 AM SHIPYARD PAINTING SUPERVISOR Coffee ground emesis COMPREHENSIVE METABOLIC PANEL AM Draw 07/18/2024 8:07 AM SHIPYARD PAINTING SUPERVISOR Coffee ground emesis MAGNESIUM BLOOD AM Draw 07/18/2024 8:07 AM SHIPYARD PAINTING SUPERVISOR Coffee ground emesis GLUCOSE - POINT OF CARE Routine 07/18/2024 7:42 AM SHIPYARD PAINTING SUPERVISOR GLUCOSE - POINT OF CARE Routine 07/18/2024 3:31 AM SHIPYARD PAINTING SUPERVISOR GLUCOSE - POINT OF CARE Routine 07/17/2024 11:36 PM SHIPYARD PAINTING SUPERVISOR GLUCOSE - POINT OF CARE Routine 07/17/2024 8:42 PM SHIPYARD PAINTING SUPERVISOR CARDIAC EKG ORDER 07/17/2024 1:4 4 PM SHIPYARD PAINTING SUPERVISOR URINE MICROSCOPIC ONLY REFLEX TO CULTURE STAT 07/17/2024 9:58 AM SHIPYARD PAINTING SUPERVISOR URINALYSIS REFLEX MICROSCOPIC REFLEX CULTURE STAT 07/17/2024 9:58 AM SHIPYARD PAINTING SUPERVISOR CULTURE URINE STAT 07/17/2024 9:58 AM SHIPYARD PAINTING SUPERVISOR CBC W AUTO DIFFERENTIAL STAT 07/17/2024 8:31 AM SHIPYARD PAINTING SUPERVISOR Coffee ground emesis TROPONIN-I HIGH SENSITIVE REFLEX 1HOUR Timed 07/17/2024 12:03 AM SHIPYARD PAINTING SUPERVISOR CBC W AUTO DIFFERENTIAL STAT 07/17/2024 12:03 AM SHIPYARD PAINTING SUPERVISOR SARS-COV-2 (COVID-19) FLU A/B RSV PCR RAPID STAT 07/17/2024 12:[address]ARD PAINTING [employer] CT ABDOMEN PELVIS W CONTRAST STAT 07/16/2024 11:41 PM SHIPYARD PAINTING SUPERVISOR Nausea and vomiting, unspecified vomiting type Abdominal distention Other constipation CK BLOOD STAT 07/16/2024 10:44 PM SHIPYARD PAINTING SUPERVISOR TROPONIN-I HIGH SENSITIVE BASELINE + 1HR STAT 07/16/2024 10:44 PM SHIPYARD PAINTING SUPERVISOR LIPASE BLOOD STAT 07/16/2024 10:44 PM SHIPYARD PAINTING SUPERVISOR LACTIC ACID BLOOD REFLEX TO REPEAT STAT 07/16/2024 10:44 PM SHIPYARD PAINTING SUPERVISOR COMPREHENSIVE METABOLIC PANEL STAT 07/16/2024 10:44 PM SHIPYARD PAINTING SUPERVISOR XR CHEST 1VW PORTABLE STAT 07/16/2024 10:28 PM SHIPYARD PAINTING SUPERVISOR Nausea and vomiting, unspecified vomiting type HEPATITIS [...] Impression: Successful exchange of the existing 18 Nauruan gastrojejunostomy catheter for a new 18 Nauruan gastrojejunostomy catheter under fluoroscopic guidance, as described [...] jelly Procedure: Exchange of the existing 18 Nauruan gastrojejunostomy catheter for a new 18 Nauruan gastrojejunostomy catheter under fluoroscopic guidance. Start time: 1435 End time: 1451 Fluoroscopic time: 4.0 minutes Contrast: 10 mL of Isovue-300 Procedure in detail: The procedure, risks, and possible complications were explained to the patient in detail, and informed consent was obtained. The patient was placed supine on the procedure table. A cut out operator film of abdomen was obtained, which showed [...] was removed over the wire. A 4 Nauruan Kumpe catheter was advanced over the wire and using this combination, was advanced into the jejunum. The Kumpe catheter was then removed over the wire. A new 18 Nauruan gastrojejunostomy catheter was then advanced over the [...] jelly Procedure: Exchange of the existing 18 Nauruan gastrojejunostomy catheter for a new 18 Nauruan gastrojejunostomy catheter under fluoroscopicguidance. Start time: 1435 End time: 1451 Fluoroscopic time: 4.0 minutes Contrast: 10 mL of Isovue-300 Procedure in detail: The procedure, risks, and possible complications were explained to the patient in detail, and informed consent was obtained. The patient was placed supine on the procedure table. A cut out operator film of abdomen wasobtained, which showed the [...] was removed over the wire. A 4 Nauruan Kumpe catheter wasadvanced over the wire and using this combination, was advanced into the jejunum. The Kumpe catheter was then removed over the wire. A new 18 Nauruan gastrojejunostomy catheter was then advanced over the [...] 18 Frenchgastrojejunostomy catheter for a new 18 Nauruan gastrojejunostomy catheter underfluoroscopic guidance, as described above. [...] > Dictated by Yessica Lovell MD, MD (resident care spec). I, Bebo Kuo MD have personally reviewed and interpreted this examination/study. > Interpreting Provider: Bebo Kuo MD on 08/06/2024 1:31 PM Narrative 08/06/2024 1:31 PM CDT PROCEDURE: CT ABDOMEN WO CONTRAST, DATE/TIME OF EXAM: 08/06/2024 11:01 AM, LOCATION [facility] INDICATION: R11.0: Nausea without vomiting [...] OF EXAM: 08/06/2024 11:01AM, LOCATION [facility] INDICATION: R11.0: Nausea without vomiting [...] > Dictated by Yessica Lovell MD, MD (resident care spec). Bebo Thomason MD have personally reviewed and interpreted this examination/study. > Interpreting Provider: Bebo Kuo MD on 51:31 PM us Yary James MD CT ORDERABLES Final Result * GLUCOSE - POINT OF CARE (08/06/2024 6:45 AM CDT) Only the most recent of14 resultswithin the time period is included. Glucose WB/POC 92 70 - 99 mg/dL 08/06/2024 6:46 AM CDT [facility] Specimen Type Cap Fingerstick 2024 6:46 AM CDT [facility] Blood BLOOD SPECIMEN / Unknown 08/06/2024 6:45 AM CDT 08/06/2024 6:46 AM CDT us Yary James MD LAB - POINT OF CARE ORDERABLE S Final Result [address] [address], [facility] [phone] * XR Abdomen Kub Portable (08/05/2024 6:14 AM CDT) Anatomical Region Laterality Modality Abdomen Digital Radiogra phy 08/05/2024 9:25 AM CDT Impressions 08/05/2024 5:10 PM CDT IMPRESSION: No radiographic evidence of acute intra-abdominal process. Report dictated by Sierra Lyman Dr, MD (resident care spec). IRamon MD have personally reviewed and interpreted this examination/study. > Interpreting Provider: Ramon Ross MD on 08/05/2024 5:10 PM Narrative 08/05/2024 5:10 PM CDT PROCEDURE: XR ABDOMEN KUB PORTABLE, DATE/TIME OF EXAM: 08/05/2024 6:14 AM, LOCATION [facility] INDICATION: R11.2: Nausea and vomiting, [...] OF EXAM: 08/05/2024 6:14AM, LOCATION [facility] INDICATION: R11.2: Nausea and vomiting, [...] Report dictated by Sierra Lyman Dr, MD (resident care spec). I, Ramon Ross MD have personally reviewed and interpreted this examination/study. > Interpreting Provider: Ramon Ross MD on 08/05/2024 5:10 PM Neha Palomino MD DIAGNOSTIC IMAGING ORDERABLE S Final Result * PT-INR [facility] (08/05/2024 1:02 AM SHIPYARD PAINTING SUPERVISOR) Only the most recent of5 resultswithin the [...] Lab Venipuncture / Unknown 08/05/2024 1:02 AM SHIPYARD PAINTING SUPERVISOR 08/05/2024 3:37 AM CDT us Lowell Cao DO LAB - COAGULATION ORDERABLES F inal Result [facility] [address] [place] [address], [facility] [phone] * (ABNORMAL) CBC W/O DIFFERENTIAL (08/05/2024 1:02 AM SHIPYARD PAINTING SUPERVISOR) Only the most recent of3 resultswithin the [...] Lab Venipuncture / Unknown 08/05/2024 1:02 AM SHIPYARD PAINTING SUPERVISOR 08/05/2024 3:37 AM CDT us Marianne Daniels MD LAB - HEMATOLOGY ORDERABLES Lulu coley Result [facility] [address] [place] [address], [facility] [phone] * (ABNORMAL) RENAL FUNCTION PANEL (08/05/2024 1:02 AM SHIPYARD PAINTING SUPERVISOR) Only the most recent of3 resultswithin the [...] Lab Venipuncture / Unknown 08/05/2024 1:02 AM SHIPYARD PAINTING SUPERVISOR 08/05/2024 3:37 AM CDT Lowell Cao DO LAB - CHEMISTRY ORDERABLES Fin al Result Performing Organization Address City/[facility]/ZIP Co de Phone Number [facility] [address] [place] [address], [place] [phone] * MAGNESIUM BLOOD (08/05/2024 1:02 AM SHIPYARD PAINTING SUPERVISOR) Only the most recent of5 resultswithin the time period is included. Magnesium 1.9 1.6 - 2.6 mg/dL 08/05/2024 4:02 AM CDT [facility] Blood BLOOD SPECIMEN / Unknown Lab Venipuncture / Unknown 08/05/2024 1:02 AM SHIPYARD PAINTING SUPERVISOR 08/05/2024 3:37 AM CDT Lowell Johnson Cao DO LAB - CHEMISTRY ORDERABLES Fin al Result Performing Organization Address City/[facility]/ZIP Co de Phone Number [address] [address], [place] [phone] * PSA FREE + TOTAL PANEL (08/04/2024 12:12 PM SHIPYARD PAINTING SUPERVISOR) PSA Total 1.7 0.0 - 4.0 ng/mL 08/04/2024 1:33 PM [facility] PSA Free 0.21 0.00 - 0.50 ng/mL 08/04/2024 1:33 PM [facility] PSA % Free 12 See Comment % 08/04/2024 1:33 PM [facility] Comment: [facility] uses the Mancia Rat Trapper method for Total and Free PSA measurements. [...] Free and/or Total PSA alone. Distribution of MEDICAL ASSISTANT PER DIEM % Free PSA Values for specimens with MEDICAL ASSISTANT PER DIEM Total PSA values between 4.0 and 10.0 ng/mL: % Free PSA Ranges <10.0 10.0-15.0 15.0-20.0 20.0-26.0 >26.0 Number of ----- --------- --------- --------- ----- Subjects Biopsy --------- ------ Negative 307 9.4 22.5 25.4 24.8 17.9 Positive 123 27.6 30.9 17.9 15.4 8.1 PSA % Free 08/04/2024 1:33 PM SHIPYARD PAINTING SUPERVISOR [facility] Blood BLOOD SPECIMEN / Unknown Lab Venipuncture / Unknown 08/04/2024 12:12 PM SHIPYARD PAINTING SUPERVISOR 08/04/2024 12:42 PM SHIPYARD PAINTING SUPERVISOR Marianne Daniels MD LAB - CHEMISTRY ORDERABLES Final Result [address] [address] [phone] * (ABNORMAL) CULTURE URINE (08/03/2024 8:53 AM SHIPYARD PAINTING SUPERVISOR) Only the most recent of2 resultswithin the time period is included. Culture Urine 50,000-100,000 CFU/mL Pseudomonas aeruginosa(A) JELLY 08/07/2024 6:04 AM [facility] Comment:This is an appended report. These results have been appended to a previously final verified report. Culture Urine 50,000-100,000 CFU/mL Corynebacterium striatum(A) JELLY 08/07/2024 6:04 AM [facility] MICRO[facility] Comment:This is an appended report. These results have been appended to a previously final verified report. Culture Urine 50,000-100,000 CFU/mL Providencia stuartii(A) JELLY 08/07/2024 6:04 AM [facility] MICRO[facility] Urine URINE SPECIMEN OBTAINED BY CLEAN CATCH PROCEDURE / Unknown Collection / Unknown 08/03/2024 8:53 AM SHIPYARD PAINTING SUPERVISOR 08/03/2024 8:56 AM SHIPYARD PAINTING SUPERVISOR Narrative Organism Antibiotic Method Susceptibility Pseudomonas aeruginosa [...] MICROBIOLOGY ORDERABLES Ed ited Result - Final [facility] [address] [place] [address], [facility] [phone] * HEMOGLOBIN A1C (08/03/2024 5:18 AM [facility]) [facility] Hemoglobin A1c 5.3 <=5.6 % 08/03/2024 8:24 AM [facility] Estimated Average Glucose 105 mg/dL 08/03/2024 8:24 AM [facility] Comment: HbA1c Interpretation: Normal : < 5.7% Pre-diabetes: 5.7-6.4% Diabetes: Equal to or greater than 6.5% Test results diagnostic of diabetes should be repeated for confirmation. Treatment target values recommended by ADA and other clinical organizations should be used to evaluate metabolic control in patients. Reference: [place] Diabetes Association, Standards of Care in Diabetes -2020 In patients 70 years and older consider HbA1c target range of 7.0-7.5% (Reference: Lukas Matamoros et al. JAMDA. 2012) The Sebia assay for the measurement of HbA1c is a National Glycohemoglobin Standardization Program (NGSP) certified method. Blood BLOOD SPECIMEN / Unknown Venipuncture / Unknown 08/03/2024 5:18 AM SHIPYARD PAINTING SUPERVISOR 08/03/2024 5:24 AM SHIPYARD PAINTING SUPERVISOR Lowell Cao DO LAB - CHEMISTRY ORDERABLES Fin al Result [facility] [address] [place] [address], [place] [phone] * TYPE + SCREEN PANEL (08/02/2024 9:53 PM SHIPYARD PAINTING SUPERVISOR) Antibody Screen NEG 10:41 PM SHIPYARD PAINTING SUPERVISOR [facility] ABO Rh O POS 08/02/2024 10:41 PM SHIPYARD PAINTING SUPERVISOR [facility] Blood Bank BLOOD SPECIMEN / Unknown Venipuncture / Unknown 08/02/2024 9:53 PM SHIPYARD PAINTING SUPERVISOR 08/02/2024 10:05 PM SHIPYARD PAINTING SUPERVISOR us Elmo Johnson MD LAB - BLOOD BANK ORDERABLES F inal Result Performing Organization Address [facility]/ZIP Co de Phone Number [facility] [address] [place] [address], [facility] [phone] * CT Chest Abdomen Pelvis W Cont (08/02/2024 9:42 PM SHIPYARD PAINTING SUPERVISOR) Only the most recent of2 resultswithin the time period is included. Anatomical Region Laterality Modality Chest, Abdomen, Pelvis Computed Tomography 08/02/2024 9:56 PM SHIPYARD PAINTING SUPERVISOR Impressions 08/02/2024 11:19 PM SHIPYARD PAINTING SUPERVISOR Impression: 1.Trace left-sided pleural effusion, bilateral dependent [...] cystitis. > Dictated by Justin Burrell MD (resident care spec). I, Bebo Kuo MD have personally reviewed and interpreted this examination/study. > Interpreting Provider: Bebo Kuo MD on 08/02/2024 11:19 PM Narrative 08/02/2024 11:19 PM SHIPYARD PAINTING SUPERVISOR PROCEDURE: CT CHEST ABDOMEN PELVIS W CONT, DATE/TIME OF EXAM: 08/02/2024 9:43 PM, LOCATION [facility] INDICATION: R11.0: Nausea without vomiting [...] EXAM: 08/02/2024 9:43 PM, LOCATION [facility] INDICATION: R11.0: Nausea without vomiting [...] cystitis. > Dictated by Justin Burrell MD (resident care spec). Bebo Thomason MD have personally reviewed and interpreted this examination/study. > Interpreting Provider: Bebo Kuo MD on 511:19 PM us Elmo Johnson MD CT ORDERABLES Final Result * XR CHEST 1VW PORTABLE (08/02/2024 5:15 PM SHIPYARD PAINTING SUPERVISOR) Only the most recent of4 resultswithin the time period is included. Anatomical Region Laterality Modality Chest Digital Radiogra phy 08/02/2024 5:27 PM SHIPYARD PAINTING SUPERVISOR Narrative 08/03/2024 9:31 AM SHIPYARD PAINTING SUPERVISOR PROCEDURE: XR CHEST 1VW PORTABLE, DATE/TIME OF EXAM: 08/02/2024 5:15 PM, LOCATION [facility] INDICATION: R11.0: Nausea without vomiting [...] abnormality. > Dictated by Meeta Leblanc MD (resident care spec) Ramon Thomason MD have personally reviewed and interpreted this examination/study. > Interpreting Provider: Ramon Ross MD on 08/03/2024 9:31 AM Procedure Note Ramon Ross MD - 08/03/2024 PROCEDURE: XR CHEST 1VW PORTABLE, DATE/TIME OF EXAM: 08/02/2024 5:15 PM, LOCATION [facility] INDICATION: R11.0: Nausea without vomiting [...] osseousabnormality. > Dictated by Meeta Leblanc MD (resident care spec) I, Ramon Ross MD have personally reviewed and interpreted this examination/study. > Interpreting Provider: Ramon Ross MD on 08/03/2024 9:31 AM Elmo Johnson MD DIAGNOSTIC IMAGING ORDERABLES Final Result * (ABNORMAL) URINALYSIS REFLEX TO MICROSCOPIC NO CULTURE (08/02/2024 5:08 PM SHIPYARD PAINTING SUPERVISOR) Color UA Yellow Yellow, Straw 08/02/2024 5:46 PM [facility] Clarity UA Turbid(A) Clear 08/02/2024 5:46 PM [facility] Glucose UA Normal Normal 08/02/2024 5:46 PM [facility] Bilirubin UA Negative Negative 08/02/2024 5:46 PM [facility] Ketone UA Negative Negative 08/02/2024 5:46 PM [facility] Specific [place] UA 1.015 1.005 - 1.030 08/02/2024 5:46 [...] Unknown Collection / Unknown 08/02/2024 5:08 PM [employer]INT[employer] SUPERVISOR 08/02/2024 5:11 PM [employer]INT[employer] SUPERVISOR us Elmo Johnson MD LAB - URINALYSIS ORDERABLES F inal Result [facility] [address] [place] [address], [facility] [phone] * (ABNORMAL) CBC W AUTO DIFFERENTIAL (08/02/2024 5:08 PM SH[employer] PAINTING SUPERVISOR) Only the most recent of7 resultswithin the [...] Unknown Venipuncture / Unknown 08/02/2024 5:08 PM [employer] PAINTING SUPERVISOR 08/02/2024 5:14 PM [facility] us Elmo Johnson MD LAB - HEMATOLOGY ORDERABLES F inal Result Performing Organization Address City/State/[facility] Co de Phone Number [facility] [address] [place] [address], [facility] [phone] * (ABNORMAL) COMPREHENSIVE METABOLIC PANEL (08/02/2024 5:08 PM SHIPYARD PAINTING SUPERVISOR) Only the most recent of5 resultswithin the [...] Unknown Venipuncture / Unknown 08/02/2024 5:08 PM SH[employer] PAINTING SUPERVISOR 08/02/2024 5:14 PM [facility] us Elmo Johnson MD LAB - CHEMISTRY ORDERABLES Fi nal Result Performing Organization Address City/[facility]/ZIP Co de Phone Number [address] [address], [facility] [phone] * LIPASE BLOOD (08/02/2024 5:08 PM SH[employer] PAINTING SUPERVISOR) Only the most recent of4 resultswithin the time period is included. [facility] Lipase 18 8 - 78 U/L 08/02/2024 5:44 PM [employer] PAINTING SUPERVISOR [facility] Blood BLOOD SPECIMEN / Unknown Venipuncture / Unknown 08/02/2024 5:08 PM [employer] PAINTING SUPERVISOR 08/02/2024 5:14 PM SH[employer]YARD PAINTING SUPERVISOR Narrative [facility] - 08/02/2024 5:44 PM [employer]ING SUPERVISOR Lipase results from the [employer] Alinity analyzer may not be comparable with other methodologies. Elmo Johnson MD LAB - CHEMISTRY ORDERABLES Fi nal Result Performing Organization Address [facility] Co de Phone Number [address] [address], [facility] [phone] * TROPONIN-I HIGH SENSITIVE BASELINE + 1HR (07/27/2024 6:26 PM SHIPY[employer] PAINTING SUPERVISOR) Only the most recent of2 resultswithin the time period is included. [facility] Troponin I High Sensitive 5 <=35 ng/L 07/27/2024 7:09 PM [employer] PAINTING SUPERVISOR [facility] Blood BLOOD SPECIMEN / Unknown Venipuncture / Unknown 07/27/2024 6:26 PM [employer] PAINTING SUPERVISOR 07/27/2024 6:37 PM [employer] PA[employer] SUPERVISOR Serjio Vilchis MD LAB - CHEMISTRY ORDERABLES Final Result Performing Organization Address [facility]/ZIP Co de Phone Number [address] [address], [facility] [phone] * EKG 12-LEAD (07/27/2024 5:34 PM SH[employer] PAINTING SUPERVISOR) [facility] Ventricular Rate 84 BPM [facility] Atrial Rate 84 BPM [facility] P-R Interval 160 ms [facility] QRS Duration ms 76 ms [facility] Q-T Interval ms 364 ms [facility] QTC Calculation (Bezet) 430 ms [facility] Calculated P [place] 49 degrees [facility] Calculated R [place] -25 degrees [facility] Calculated T [place] 56 degrees [facility] Interpretation EKG NORMAL SINUS RHYTHM SEPTAL INFARCT , AGE UNDETERMINED INFERIOR INFARCT , AGE UNDETERMINED ABNORMAL ECG WHEN COMPARED WITH ECG OF 19-FEB-2024 17:27, SEPTAL INFARCT IS NOW PRESENT INFERIOR INFARCT IS NOW PRESENT Confirmed by MD ABENA, CLEMENTE ([id number]) on 07/30/2024 2:44:30 PM [facility] 07/27/2024 5:34 PM [employer] PAINT[employer] SUPERVISOR 07/30/2024 2:44 PM [employer]INTING SUPERVISOR us Serjio Vilchis MD ECG ORDERABLES Edited Result - Final [facility] * PATHOLOGY TISSUE (07/18/2024 4:27 PM SHIPYARD PAINTING SUPERVISOR) Case Report Surgical Pathology Report Case: [id number] Authorizing Provider: Clifton Trinh, Collected: 07/18/2024 04:27 PM Ordering Location: [facility] Received: 07/19/2024 10:00 AM Pathologist: Mara Pascual MD Specimen: Gastric, Gastric Antrum Biopsies 07/20/2024 3:51 PM [facility] Final Diagnosis Stomach, antrum, biopsy (A): - Superficial erosion in a background of reactive gastropathy, SEE COMMENT 07/20/2024 3:51 PM [facility] Microscopic Description and Comment The [...] true H. pylori infection. 07/20/2024 3:51 PM [facility] Clinical History The patient is a 64-year-old man with suspected upper gastrointestinal bleeding and melena. Operative procedure/findings: EGD - small esophageal diverticulum; benign-appearing intrinsic stenosis at the proximal and distal esophagus, dilated; broad irregular area of mucosa along the lesser curvature with superficial erosion, biopsied 07/20/2024 3:51 PM [facility] Gross Description The requisition and specimen(s) are identified with the patient's name, Bi Tabor. Received in formalin, specimen A , are four marie-pink tissue fragments, 0.1-0.3 cm, 0.4 x 0.3 x 0.1 cm in aggregate , submitted in toto in cassette A1. The two smallest fragments are friable and may not survive processing. IKD 07/20/2024 3:51 PM [facility] Pathologist Location at [facility] 07/20/2024 3:51 PM [facility] Disclaimer The performance characteristics of all immunohistochemical and indirect immunofluorescence stains (if any) cited in this report were determined by the Histopathology Laboratory of [facility]. Some of these tests were [...] the attending (teaching) pathologist. 07/20/2024 3:51 PM [facility] Embedded Images 07/20/2024 3:51 PM [facility] Biopsy, NOS GASTRIC CONTENTS SPECIMEN / Unknown 07/18/2024 4:27 PM [employer]INTING SUPERVISOR 07/19/2024 10:00 AM [employer] PAINTING SUPERVISOR Comment:Pre-op diagnosis: Coffee ground emesis [K92.0] Clifton Alejandra MD LAB - PATHOLOGY/CYTO LOGY ORDERABLES Final Result [facility] [address] [place] [address], [facility] [phone] * EGD (07/18/2024 3:52 PM SHIPYARD PAINTING SUPERVISOR) Report Endoscopy POC Endoscopy Department Report __ [...] entire procedure. Procedure Code(s): --- Professional --- 22209, Esophagogastroduode noscopy, flexible, transoral; with biopsy, single or multiple Diagnosis Code(s): --- Professional --- K31.89, Other diseases of stomach and duodenum K92.1, Melena (includes Hematochezia) CPT copyright 2021 [employer]. All rights reserved. The codes documented in this report are preliminary and upon synchro assembler review may be revised to meet current compliance requirements. Clifton Alejandra MD 07/18/2024 4:45:03 PM Note Initiated On: 07/18/2024 3:52 PM Number of Addenda: [id number] [place] [address] [facility] 07/18/2024 3:52 PM [employer] PAINTING SUPERVISOR us Aaron Delgado III, MD GI PROCEDURE ORDERABLES Edited Result - Final Performing Organization Address City/[facility]/ZIP Co de Phone Number [facility] * PHOSPHORUS BLOOD (07/18/2024 8:07 AM SHIPYARD PAINTING SUPERVISOR) Phosphorus 4.2 2.8 - 5.1 mg/dL 07/18/2024 8:52 AM SH[employer]YARD PAINTING SUPERVISOR [facility] Blood BLOOD SPECIMEN / Unknown Lab Venipuncture / Unknown 07/18/2024 8:07 AM SH[employer] PAINTING SUPERVISOR 07/18/2024 8:24 AM SH[employer] PAINTING SUPERVISOR us Marianne Daniels MD LAB - CHEMISTRY ORDERABLES Final Result Performing Organization Address [facility]/ZIP Co de Phone Number [address] [address], [place] [phone] * VALPROIC ACID LEVEL (07/18/2024 8:07 AM SHIPYARD PAINTING SUPERVISOR) Valproic Acid Total 74 50 - 100 ug/mL 07/18/2024 8:41 AM SH[employer]YARD PAINTING SUPERVISOR [facility] Blood BLOOD SPECIMEN / Unknown Lab Venipuncture / Unknown 07/18/2024 8:07 AM SH[employer]YARD PAINTING SUPERVISOR 07/18/2024 8:19 AM SH[employer]YARD PAINTING SUPERVISOR us Marianne Daniels MD LAB - CHEMISTRY ORDERABLES Final Result Performing Organization Address City/[facility]/ZIP Co de Phone Number [address] [address], [place] [phone] * CARDIAC EKG ORDER (07/17/2024 1:44 PM SHIPYARD PAINTING SUPERVISOR) Narrative 07/17/2024 1:44 PM SH[employer] PAINTING SUPERVISOR Ordered by an unspecified provider. us Scanned Document CARDIAC SERVICES ORDERABLES Fin al Result * (ABNORMAL) URINE MICROSCOPIC ONLY REFLEX TO CULTURE (07/17/2024 9:58 AM SHIPYARD PAINTING SUPERVISOR) Reflex Status Culture to follow 07/17/2024 10:42 AM [facility] WBC UA 21-50(A) None Seen, 0-5 /HPF 07/17/2024 10:42 AM [facility] Bacteria UA 1+(A) None /HPF 07/17/2024 10:42 AM [facility] Squamous Epithelial Cells UA None Seen None Seen, 0-2, 3-5 /HPF 07/17/2024 10:42 AM [facility] Urine URINE SPECIMEN OBTAINED BY CLEAN CATCH PROCEDURE / Unknown Collection / Unknown 07/17/2024 9:58 AM SH[employer] PAINTING SUPERVISOR 07/17/2024 10:02 AM [facility] Narrative [facility] - 07/17/2024 10:42 AM SHIPYARD PAINTING SUPERVISOR Quan Gan MD LAB - URINALYSIS ORDERABLES Lulu coley Result Performing Organization Address [facility]/State/ZIP Co de Phone Number [facility] [address] [place] [address], [facility] [phone] * (ABNORMAL) URINALYSIS REFLEX MICROSCOPIC REFLEX CULTURE (07/17/2024 9:58 AM SHIPYARD PAINTING SUPERVISOR) Color UA Yellow Straw, Yellow 07/17/2024 10:36 AM [facility] Clarity UA Slt Cloudy(A) Clear 07/17/2024 10:36 AM [facility] Specific [place] UA 1.027 1.005 - 1.030 07/17/2024 10:36 AM [facility] pH UA 8.0 5.0 - 8.0 pH 07/17/2024 10:36 AM [facility] Protein UA 1+(A) Negative 07/17/2024 10:36 AM [facility] Glucose UA Negative Negative 07/17/2024 10:36 AM [facility] Ketone UA Negative Negative 07/17/2024 10:36 AM [facility] Bilirubin UA Negative Negative 07/17/2024 10:36 AM [facility] Blood UA Negative Negative 07/17/2024 10:36 AM [facility] Nitrite UA Positive(A) Negative 07/17/2024 10:36 AM [facility] Leukocyte Esterase 1+(A) Negative 07/17/2024 10:36 AM [facility] Urobilinogen UA 4.0(A) Negative mg/dL 07/17/2024 10:36 AM [facility] Urine URINE SPECIMEN OBTAINED BY CLEAN CATCH PROCEDURE / Unknown Collection / Unknown 07/17/2024 9:58 AM SH[employer]YARD PAINTING SUPERVISOR 07/17/2024 10:02 AM [facility] Narrative [facility] - 07/17/2024 10:36 AM [employer] PAINTING SUPERVISOR Quan Gan MD LAB - URINALYSIS ORDERABLES Lulu l Result [address] [address], [place] [phone] * TROPONIN-I HIGH SENSITIVE REFLEX 1HOUR (07/17/2024 12:03 AM [facility]) Troponin I High Sensitive 7 <=35 ng/L 07/17/2024 12:48 AM [facility] Delta Troponin I HS 0 <6 ng/L 07/17/2024 12:48 AM [facility] Blood BLOOD SPECIMEN / Unknown Venipuncture / Unknown 07/17/2024 12:03 AM [employer] PAINTING SUPERVISOR 07/17/2024 12:11 AM [employer] PAINTING SUPERVISOR Quan Gan MD LAB - CHEMISTRY ORDERABLES Final Result [address] [address], [place] [phone] * SARS-COV-2 (COVID-19) FLU A/B RSV PCR RAPID (07/17/2024 12:03 AM SH[employer] PAINTING SUPERVISOR) COVID-19 PCR Not detected Not detected 07/17/19 12:51 AM [facility] Influenza A PCR Not detected Not detected 07/17/2024 12:51 AM [facility] Influenza B PCR Not detected Not detected 07/17/2024 12:51 AM [facility] RSV PCR Not detected Not detected 07/17/2024 12:51 AM [facility] Microbiology SPECIMEN FROM NASOPHARYNGEAL STRUCTURE / Unknown Collection / Unknown 07/17/2024 12:03 AM SH[employer] PAINTING SUPERVISOR 07/17/2024 12:11 AM SH[employer]YARD PAINTING SUPERVISOR Narrative [facility] - 07/17/2024 12:51 AM SH[employer]YARD PAINTING SUPERVISOR This nucleic acid amplification assay has been [...] LAB - MICROBIOLOGY ORDERABLES Fi nal Result [facility] [address] [place] [address], [facility] [phone] * CT Abdomen Pelvis W Contrast (07/16/2024 11:41 PM SHIPYARD PAINTING SUPERVISOR) Anatomical Region Laterality Modality Abdomen, Pelvis Computed Tomogra phy 07/17/2024 12:0 2 AM SH[employer]YARD PAINTING SUPERVISOR Impressions 07/17/2024 8:29 AM SH[employer]YARD PAINTING SUPERVISOR Impression: 1.No acute process identified in the [...] obstruction. > Dictated by Ashu Welch MD (resident care spec). I, Bebo Kuo MD have personally reviewed and interpreted this examination/study. > Interpreting Provider: Bebo Kuo MD on 07/17/2024 8:29 AM Narrative 07/17/2024 8:29 AM [employer] PAINTING SUPERVISOR PROCEDURE: CT ABDOMEN PELVIS W CONTRAST, DATE/TIME OF EXAM: 07/16/2024 11:42 PM, LOCATION [facility] INDICATION: R11.2: Nausea and vomiting, [...] EXAM: 07/16/2024 11:42 PM, LOCATION [facility] INDICATION: R11.2: Nausea and vomiting, [...] obstruction. > Dictated by Ashu Welch MD (resident care spec). I, Bebo Kuo MD have personally reviewed and interpreted this examination/study. > Interpreting Provider: Bebo Kuo MD on 58:29 AM Quan Gan MD [address] ORDERABLES Final Result * LACTIC ACID BLOOD REFLEX TO REPEAT (07/16/2024 10:44 PM SHIPYARD PAINTING SUPERVISOR) Lactic Acid-Stat 1.9 <=2.0 mmol/L 07/16/2024 11:19 PM SHIPYARD PAINTING SUPERVISOR [facility] Blood BLOOD SPECIMEN / Unknown Venipuncture / Unknown 07/16/2024 10:44 PM SH[employer]YARD PAINTING SUPERVISOR 07/16/2024 10:52 PM SHIPYARD PAINTING SUPERVISOR Result [facility] Quan Gan MD LAB - CHEMISTRY ORDERABLES Final Result [address] [address], [place] [phone] * CK BLOOD (07/16/2024 10:44 PM SHIPYARD PAINTING SUPERVISOR) [facility] CK Total 92 30 - 200 U/L 07/16/2024 11:23 PM SHIPYARD PAINTING SUPERVISOR [facility] Blood BLOOD SPECIMEN / Unknown Venipuncture / Unknown 07/16/2024 10:44 PM SHIPYARD PAINTING SUPERVISOR 07/16/2024 10:52 PM SHIPYARD PAINTING SUPERVISOR Result [facility] Quan Gan MD LAB - CHEMISTRY ORDERABLES Final Result Performing Organization Address [facility] Co de Phone Number [address] [address], [place] [phone] * HEPATITIS C AB SCREEN RFLX NAAT QUANT (09/01/2022 2:05 AM CDT) [facility] Hepatitis C Antibody Non-react phan Non-reac [...] AM CDT 09/01/2022 2:15 AM CDT Result [facility] Artemio Abarca MD LAB - CHEMISTRY ORDERABLES Fin al Result Performing Organization Address [facility]/ZIP Co de Phone Number [address] [address], [place] [phone] * HIV-1 HIV-2 ANTIBODY + HIV P24 AG PANEL (09/01/2022 2:05 AM CDT) HIV Antigen/Antibod y 1 & 2 Non-reacti ve Non-react phan 09/01/2022 3:09 AM CDT [facility] Comment:No Laboratory eviden ce of HIV infection. 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 Source: [facility]. 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
--- OUTSIDE RECORDS SUMMARY | 2024-09-16 22:14 | XMS_ITS | Clinical Summary ---
Author Organization [facility] Address [address] [place] [address] Care Team Providers Care Molder Bench Name Role Phone Marielena Smallwood MD Primary [...] 06/28/2024 Assessment & Plan (06/28/2024 11:42 AM SUPPLY CHAIN LOGISTICS MANAGER): Now back on full TF's sugars running mildly high. Monitor with q4 accuchecks and SSI. Hypophosphatemia 06/27/2024 Assessment & Plan (06/28/2024 11:44 AM SUPPLY CHAIN LOGISTICS MANAGER): <0.7 ? 2/2 refeeding syndrome. Started on neutraphos 2pkg QID 06/26. Still Phos<0.7 06/27. Tx with IV NaPhos 30mmoles and cont per tube replacement and monitor closely. -06/28: Phos=3.3, reduce nuetraphos to 1 PKG BID and monitor History of DVT (deep vein thrombosis) 06/26/2024 Assessment & Plan (06/26/2024 1:32 PM SUPPLY CHAIN LOGISTICS MANAGER): -On anticoagulation with Eliquis 5 mg po BID for hx of DVT -per chart review hx of Left Subclavian vein DVT diagnosed 08/01/23 H/O: GI bleed 06/25/2024 Assessment & Plan (06/26/2024 1:32 PM SUPPLY CHAIN LOGISTICS MANAGER): - recent admission at [facility] ( [...] 06/25/2024 Assessment & Plan (06/26/2024 1:36 PM SUPPLY CHAIN LOGISTICS MANAGER): Tracheostomy dependence, has a Shiley #4 cuffed. Pt followed at [facility], per notes trach in place for pulmonary toilet due to his copious secretions and ongoing aspiration of his secretions. -needing frequent suctioning -sats stable on 28% FIO2 by HHTC -Was getting VEST at [facility] Low grade fever 06/20/2024 Assessment & Plan (06/26/2024 1:34 PM SUPPLY CHAIN LOGISTICS MANAGER): Low-grade fever and tachycardia, softer BP [...] 06/17/2024 Assessment & Plan (06/28/2024 11:43 AM SUPPLY CHAIN LOGISTICS MANAGER): -patient at admission with a G tube, was getting continous tube feedings at [facility] and not tolerating, -was changed to bolus [...] tube fell off and pt had 18 [place]ian G tube placed at [facility] ED on 04/21/24 (records on care everywhere)and after that he has not tolerated well tube feedings per discussion with his sister Ms Hilliard,Adriane [phone] POA - consulted IR 06-20-24 for conversion [...] goal 06/25, adjust FWF per hydration status, mobile equipment mechanic to follow up -On full TF's-osmolite 1.5. Phos repleted. Copious oral secretions 06/13/2024 Assessment & Plan (06/26/2024 1:29 PM SUPPLY CHAIN LOGISTICS MANAGER): Patient on chronic glycopyrrolate due to secretions, held at admission 2/ to potential for constipation with plan to add back when he's had a bowel movements -resume on 06-19- hold on 06-20 due to somnolence. Suction PRN - restart glycopyrrolate 1mg BID 06/26 and monitor Abdominal pain 06/12/2024 Assessment & Plan (06/26/2024 1:23 PM SUPPLY CHAIN LOGISTICS MANAGER): -p/w abdominal distention from SNF to ED on 06-12 ,reported biliary emesis per group home (approximately 300 cc) , not associated fevers or change in bowel habits. Feeding tube placed to gravity drainage in ED H&P notes regular bowel movements. CT scan on 06-12 in ED with stool in the rectum and sigmoid. Wren likely constipation contributing to the patient's abdominal [...] 06/12/2024 Assessment & Plan (06/26/2024 12:08 AM SUPPLY CHAIN LOGISTICS MANAGER): Complicated by left LE AKA. History of CVA (cerebrovascular accident) 2020 Assessment & Plan (06/26/2024 1:32 PM SUPPLY CHAIN LOGISTICS MANAGER): - hx of RT parietal CVA- hx of dementia Cont asa and statin Essential hypertension 12/11/2020 Assessment & Plan (06/26/2024 1:30 PM SUPPLY CHAIN LOGISTICS MANAGER): - on metoprolol and norvasc, held with soft BP 06-19 - resume metoprolol 06-21 -resume amlodipine 06-22 - Monitor Hyperlipidemia 12/11/2020 Assessment & Plan (06/12/2024 3:47 PM SUPPLY CHAIN LOGISTICS MANAGER): - Continue home statin Seizure 12/10/2020 Assessment & Plan (06/26/2024 1:36 PM SUPPLY CHAIN LOGISTICS MANAGER): History of seizure disorder secondary to traumatic brain injury. Currently on valproate, Vimpat, Keppra and Cobazam - Continue home medication, valproate level low at admit 48 on 06-12, 48 on 06-13, Valproic acid level 76 06-19 prior to dose, lacosamide level 1.4 on 06/12, 9.6 on 06-19 Followed by Neurology at [facility] Cognitive communication deficit 08/25/2020 Cerebrovascular [...] Department Care Team Description 07/09/2024 7:23 PM SUPPLY CHAIN LOGISTICS MANAGER - 07/09/2024 11:59 PM SUPPLY CHAIN LOGISTICS MANAGER Hospital Encounter AMBULANCE BILLING [address] [place] [address] Discharge Disposition: Discharge to home or self care 07/08/2024 7:52 PM SUPPLY CHAIN LOGISTICS MANAGER - 07/09/2024 7:48 AM [facility] Emergency [facility] Emergency Department [address] [place] [address] Tri Martinez MD Thomas, Jenna Marie, MD Tracheostomy complication, unspecified complication type (HCC) (Primary Dx); Balanitis Discharge Disposition: Discharge to home or self care 06/12/2024 10:26 AM SUPPLY CHAIN LOGISTICS MANAGER - 06/28/2024 5:25 PM SUPPLY CHAIN LOGISTICS MANAGER Hospital Encounter [facility] [address] [place] [address] Shakila Jung MD Choi, Cheuk Ho Jeffrey, [...] h recurrent seizures (HCC) Followed up at [facility] ([facility]) Degenerative cervical spinal stenosis Family History Medical History Relation Name Comments Coronary artery disease Father Stroke Father Hypertension Mother Relation Name Status Comments Father Mother Social History Tobacco Use Types Packs/Day Years Used Date Smoking Tobacco: Former Cigarettes Smokeless Tobacco: Current Tobacco Cessation:Counseling Given: Yes [facility] Utilities Answer Date Recorded In the [...] often do you attend chur ch or mormonism services? Never 06/18/2024 Do you belong to any clubs o r organizations such as methodist groups, unions, fraternal or athletic groups, or [...] any time in the past 12 [facility], were you homeless or living in a skilled nursing (including now)? No 06/18/2024 Personal Safety Answer Date Recorded Have you ever been in or are you currently in a harmful physical or emotional relationship or is someone making you feel afraid or unsafe? Denies 07/08/2024 Sex and Gender Information Value Date Recorded Sex Assigned at Not on file Legal Sex Male 6:11 AM SUPPLY CHAIN LOGISTICS MANAGER Gender Identity Not on file Sexual Orientation Not on file Obstetrics History Last Filed Vital Signs Vital Sign Reading Time Taken Comments Blood Pressure 145/83 07/09/2024 6:00 AM SUPPLY CHAIN LOGISTICS MANAGER Pulse 91 07/09/2024 6:00 AM SUPPLY CHAIN LOGISTICS MANAGER Temperature 36.5 C (97.7 F) 07/09/2024 6:31 AM SUPPLY CHAIN LOGISTICS MANAGER Respiratory Rate 10 07/09/2024 6:00 AM SUPPLY CHAIN LOGISTICS MANAGER Oxygen Saturation 100% 07/09/2024 6:00 AM SUPPLY CHAIN LOGISTICS MANAGER Inhaled Oxygen Concentration - - Weight 79.8 kg (176 lb) 07/09/2024 2:16 AM SUPPLY CHAIN LOGISTICS MANAGER Height 182.9 cm (6') 07/09/2024 2:16 AM SUPPLY CHAIN LOGISTICS MANAGER Body Mass Index 23.87 07/09/2024 2:16 AM SUPPLY CHAIN LOGISTICS MANAGER Plan of Treatment Health Maintenance Due Date [...] COMMUNITY SCREENING-ISSA ELIGIBLE STAT 07/09/2024 5:32 AM SUPPLY CHAIN LOGISTICS MANAGER SEPSIS LACTATE WITH REFLEX Timed 07/09/2024 4:33 AM SUPPLY CHAIN LOGISTICS MANAGER ED PERIPHERAL LINE INSERTION Routine 07/09/2024 1:18 AM SUPPLY CHAIN LOGISTICS MANAGER SEPSIS LACTATE WITH REFLEX Timed 07/09/2024 1:15 AM SUPPLY CHAIN LOGISTICS MANAGER RPR STAT 07/09/2024 1:15 AM SUPPLY CHAIN LOGISTICS MANAGER N. GONORRHOEAE/C. TRACHOMATIS AMPLIFICATION STAT 07/09/2024 1:02 AM SUPPLY CHAIN LOGISTICS MANAGER URINALYSIS AND REFLEX TO MICROSCOPIC AND CULTURE STAT 07/09/2024 1:02 AM SUPPLY CHAIN LOGISTICS MANAGER ED PERIPHERAL LINE INSERTION Routine 07/08/2024 10:11 PM SUPPLY CHAIN LOGISTICS MANAGER CT CHEST ABDOMEN PELVIS W CONTRAST ED 07/08/2024 9:55 PM SUPPLY CHAIN LOGISTICS MANAGER EGFR STAT 07/08/2024 8:56 PM SUPPLY CHAIN LOGISTICS MANAGER DIFFERENTIAL AUTO STAT 07/08/2024 8:5 6 PM SUPPLY CHAIN LOGISTICS MANAGER SEPSIS LACTATE WITH REFLEX STAT 07/08/2024 8:56 PM SUPPLY CHAIN LOGISTICS MANAGER LIPASE STAT 07/08/2024 8:56 PM SUPPLY CHAIN LOGISTICS MANAGER COMPREHENSIVE METABOLIC PANEL STAT 07/08/2024 8:56 PM SUPPLY CHAIN LOGISTICS MANAGER CBC WITH AUTO DIFFERENTIAL STAT 07/08/2024 8:56 PM SUPPLY CHAIN LOGISTICS MANAGER RESPIRATORY PATHOGEN PANEL STAT 07/08/2024 8:56 PM SUPPLY CHAIN LOGISTICS MANAGER ECG 12-LEAD Routine 07/08/2024 8:28 PM SUPPLY CHAIN LOGISTICS MANAGER XR CHEST 1 VIEW ED 07/08/2024 8:18 PM SUPPLY CHAIN LOGISTICS MANAGER POCT GLUCOSE DEVICE Routine 06/28/2024 4 :24 PM SUPPLY CHAIN LOGISTICS MANAGER POCT GLUCOSE DEVICE Routine 06/28/2024 1 2:30 PM SUPPLY CHAIN LOGISTICS MANAGER POCT GLUCOSE DEVICE Routine 06/28/2024 7 :43 AM SUPPLY CHAIN LOGISTICS MANAGER POCT GLUCOSE DEVICE Routine 06/28/2024 4 :01 AM SUPPLY CHAIN LOGISTICS MANAGER POCT GLUCOSE DEVICE Routine 06/27/2024 1 1:28 PM SUPPLY CHAIN LOGISTICS MANAGER EGFR Routine 06/27/2024 9:30 PM SUPPLY CHAIN LOGISTICS MANAGER PHOSPHORUS Routine 06/27/2024 9:30 PM SUPPLY CHAIN LOGISTICS MANAGER MAGNESIUM Routine 06/27/2024 9:30 PM SUPPLY CHAIN LOGISTICS MANAGER BASIC METABOLIC PANEL Routine 06/27/2024 9:30 PM SUPPLY CHAIN LOGISTICS MANAGER POCT GLUCOSE DEVICE Routine 06/27/2024 8 :39 PM SUPPLY CHAIN LOGISTICS MANAGER POCT GLUCOSE DEVICE Routine 06/27/2024 5 :10 PM SUPPLY CHAIN LOGISTICS MANAGER POCT GLUCOSE DEVICE Routine 06/27/2024 4 :27 PM SUPPLY CHAIN LOGISTICS MANAGER POCT GLUCOSE DEVICE Routine 06/27/2024 1 :06 PM SUPPLY CHAIN LOGISTICS MANAGER POCT GLUCOSE DEVICE Routine 06/27/2024 9 :59 AM SUPPLY CHAIN LOGISTICS MANAGER EGFR Routine 06/26/2024 10:21 PM SUPPLY CHAIN LOGISTICS MANAGER DIFFERENTIAL AUTO Routine 06/26/2024 10: 21 PM SUPPLY CHAIN LOGISTICS MANAGER PHOSPHORUS Routine 06/26/2024 10:21 PM SUPPLY CHAIN LOGISTICS MANAGER MAGNESIUM Routine 06/26/2024 10:21 PM SUPPLY CHAIN LOGISTICS MANAGER CBC WITH AUTO DIFFERENTIAL Routine 06/26/2024 10:21 PM SUPPLY CHAIN LOGISTICS MANAGER BASIC METABOLIC PANEL Routine 06/26/2024 10:21 PM SUPPLY CHAIN LOGISTICS MANAGER HEPATITIS B SURFACE ANTIGEN Routine 06/26/2024 10:21 PM SUPPLY CHAIN LOGISTICS MANAGER PHOSPHORUS Routine 06/26/2024 3:21 PM SUPPLY CHAIN LOGISTICS MANAGER RPR Routine 06/26/2024 3:21 PM SUPPLY CHAIN LOGISTICS MANAGER HEPATITIS C ANTIBODY Routine 06/26/2024 3:21 PM SUPPLY CHAIN LOGISTICS MANAGER HIV 1/2 ANTIBODY PLUS P24 ANTIGEN Routine 06/26/2024 3:21 PM SUPPLY CHAIN LOGISTICS MANAGER EGFR Routine 06/26/2024 12:16 AM SUPPLY CHAIN LOGISTICS MANAGER PHOSPHORUS Routine 06/26/2024 12:16 AM SUPPLY CHAIN LOGISTICS MANAGER MAGNESIUM Routine 06/26/2024 12:16 AM SUPPLY CHAIN LOGISTICS MANAGER BASIC METABOLIC PANEL Routine 06/26/2024 12:16 AM SUPPLY CHAIN LOGISTICS MANAGER POCT GLUCOSE DEVICE Routine 06/23/2024 1 1:36 AM SUPPLY CHAIN LOGISTICS MANAGER CBC WITHOUT DIFFERENTIAL Timed 06/23/2024 9:07 AM SUPPLY CHAIN LOGISTICS MANAGER VANCOMYCIN LEVEL TROUGH Routine 06/23/2024 9:00 AM SUPPLY CHAIN LOGISTICS MANAGER EGFR Routine 06/23/2024 9:00 AM SUPPLY CHAIN LOGISTICS MANAGER MAGNESIUM Routine 06/23/2024 9:00 AM SUPPLY CHAIN LOGISTICS MANAGER PHOSPHORUS Routine 06/23/2024 9:00 AM SUPPLY CHAIN LOGISTICS MANAGER BASIC METABOLIC PANEL Routine 06/23/2024 9:00 AM SUPPLY CHAIN LOGISTICS MANAGER G TO GJ-TUBE REPLACEMENT IP Routine 06/22/2024 1:24 PM SUPPLY CHAIN LOGISTICS MANAGER C. DIFFICILE TESTING Routine 06/21/2024 11:11 AM SUPPLY CHAIN LOGISTICS MANAGER INFECTION PREVENTION VRE CULTURE Routine 06/21/2024 11:10 AM SUPPLY CHAIN LOGISTICS MANAGER VANCOMYCIN LEVEL TROUGH Timed 06/21/2024 7:16 AM SUPPLY CHAIN LOGISTICS MANAGER EGFR Routine 06/21/2024 5:03 AM SUPPLY CHAIN LOGISTICS MANAGER DIFFERENTIAL AUTO Routine 06/21/2024 5:0 3 AM SUPPLY CHAIN LOGISTICS MANAGER PHOSPHORUS Timed 06/21/2024 5:03 AM SUPPLY CHAIN LOGISTICS MANAGER MAGNESIUM Routine 06/21/2024 5:03 AM SUPPLY CHAIN LOGISTICS MANAGER COMPREHENSIVE METABOLIC PANEL Routine 06/21/2024 5:03 AM SUPPLY CHAIN LOGISTICS MANAGER CBC WITH AUTO DIFFERENTIAL Routine 06/21/2024 5:03 AM SUPPLY CHAIN LOGISTICS MANAGER MSSA/MRSA (STAPHYLOCOCCUS AUREUS) CULTURE Routine 06/20/2024 10:30 PM SUPPLY CHAIN LOGISTICS MANAGER XR ABDOMEN AP 1 VIEW IP Routine 06/20/2024 10:29 AM SUPPLY CHAIN LOGISTICS MANAGER URINALYSIS, MICROSCOPIC ONLY Routine 06/19/2024 9:34 PM SUPPLY CHAIN LOGISTICS MANAGER URINALYSIS AND REFLEX TO MICROSCOPIC AND CULTURE Routine 06/19/2024 9:34 PM SUPPLY CHAIN LOGISTICS MANAGER DIFFERENTIAL AUTO Routine 06/19/2024 9:2 8 PM SUPPLY CHAIN LOGISTICS MANAGER CBC WITH AUTO DIFFERENTIAL Routine 06/19/2024 9:28 PM SUPPLY CHAIN LOGISTICS MANAGER VALPROIC ACID LEVEL, TOTAL Timed 06/19/2024 9:28 PM SUPPLY CHAIN LOGISTICS MANAGER LACOSAMIDE Routine 06/19/2024 9:28 PM SUPPLY CHAIN LOGISTICS MANAGER RESPIRATORY PATHOGEN PANEL Routine 06/19/2024 9:10 PM SUPPLY CHAIN LOGISTICS MANAGER AEROBIC CULTURE AND GRAM STAIN Routine 06/19/2024 6:53 PM SUPPLY CHAIN LOGISTICS MANAGER XR CHEST 1 VIEW IP Routine 06/19/2024 6:47 PM SUPPLY CHAIN LOGISTICS MANAGER RESPIRATORY PATHOGEN PANEL Routine 06/19/2024 6:46 PM SUPPLY CHAIN LOGISTICS MANAGER XR ABDOMEN AP 1 VIEW IP Routine 06/19/2024 4:09 PM SUPPLY CHAIN LOGISTICS MANAGER XR CHEST 1 VIEW IP Routine 06/19/2024 4:08 PM SUPPLY CHAIN LOGISTICS MANAGER EGFR Timed 06/19/2024 2:47 PM SUPPLY CHAIN LOGISTICS MANAGER DIFFERENTIAL AUTO Timed 06/19/2024 2:4 7 PM SUPPLY CHAIN LOGISTICS MANAGER PHOSPHORUS Timed 06/19/2024 2:47 PM SUPPLY CHAIN LOGISTICS MANAGER MAGNESIUM Timed 06/19/2024 2:47 PM SUPPLY CHAIN LOGISTICS MANAGER COMPREHENSIVE METABOLIC PANEL Timed 06/19/2024 2:47 PM SUPPLY CHAIN LOGISTICS MANAGER CBC WITH AUTO DIFFERENTIAL Timed 06/19/2024 2:47 PM SUPPLY CHAIN LOGISTICS MANAGER POCT GLUCOSE DEVICE Routine 06/19/2024 2 :25 PM SUPPLY CHAIN LOGISTICS MANAGER HEMOGLOBIN A1C Routine 06/12/2024 3:30 PM SUPPLY CHAIN LOGISTICS MANAGER TNI WITH LIPID PANEL Routine 08/24/2017 4:57 PM CDT from Last 3 Months or Most Recently Relevant to Health Maintenance Results * POCT Rapid HIV Antibody Community Screening-Issa Eligible (07/09/2024 5:32 AM SUPPLY CHAIN LOGISTICS MANAGER) [facility] Rapid HIV, POC Negative Negative Lot Number [id number] QC Control Line Acceptable Blood 07/09/2024 5:32 AM SUPPLY CHAIN LOGISTICS MANAGER Naa Tam MD POINT OF CARE TEST ORDER NICHOLE Final Result * Sepsis Lactate w/ Reflex (07/09/2024 4:33 AM SUPPLY CHAIN LOGISTICS MANAGER) Sepsis Lactate 2.0 0.7 - 2.0 mmol/L Blood 07/09/2024 4:33 AM SUPPLY CHAIN LOGISTICS MANAGER 07/09/2024 4:42 AM SUPPLY CHAIN LOGISTICS MANAGER Naa Tam MD LAB BLOOD ORDERABLES Fin al Result [facility] Department [place] [address] * ED PERIPHERAL LINE INSERTION (07/09/2024 1:18 AM SUPPLY CHAIN LOGISTICS MANAGER) Narrative Cherie Damian MD - 07/09/2024 1:18 AM SUPPLY CHAIN LOGISTICS MANAGER Atul Barba MD 07/09/2024 1:18 AM [...] procedure: Tolerated well, no immediate complications Result [facility] Cherie Damian MD IN CLINIC/BEDSIDE ORDERABL ES Final Result * (ABNORMAL) Sepsis Lactate w/ Reflex (07/09/2024 1:15 AM SUPPLY CHAIN LOGISTICS MANAGER) Sepsis Lactate 2.8(H) 0.7 - 2.0 mmol/L Blood 07/09/2024 1:15 AM SUPPLY CHAIN LOGISTICS MANAGER 07/09/2024 1:46 AM SUPPLY CHAIN LOGISTICS MANAGER Naa Tam MD LAB BLOOD ORDERABLES Fin al Result Performing Organization Address City/[facility] Co de Phone Number [facility] [place] [address] * RPR Blood (07/09/2024 1:15 AM SUPPLY CHAIN LOGISTICS MANAGER) RPR Nonreactive Nonreactive Blood 07/09/2024 1:15 AM SUPPLY CHAIN LOGISTICS MANAGER 07/09/2024 1:40 AM SUPPLY CHAIN LOGISTICS MANAGER Naa Tam MD LAB MICROBIOLOGY - GENER AL ORDERABLES Final Result Performing Organization Address [facility] Phone Number [facility] [place] [address] * N. gonorrhoeae/C. trachomatis Amplification Urine (07/09/2024 1:02 AM SUPPLY CHAIN LOGISTICS MANAGER) C. trachomatis Not Detected Not Detected [facility] N. gonorrhoeae Not Detected Not Detected [facility] Comment: Interpretive Data This assay detects Chlamydia trachomatis and Neisseria gonorrhoeae by nucleic acid amplification testing (NAAT). This assay has been cleared by the [place] Food and Drug administration. The performance characteristics of this test have been verified by the [facility] Molecular Infectious Disease laboratory. The performance characteristics of this test have not been evaluated in individuals less than 14 years of age. Current Interpretive Data last revised 2023. Urine (None) 07/09/2024 1:02 AM SUPPLY CHAIN LOGISTICS MANAGER 07/09/2024 1:35 AM SUPPLY CHAIN LOGISTICS MANAGER us Naa Tam MD LAB MICROBIOLOGY - GENER AL ORDERABLES Final Result Performing Organization Address [facility] Co de Phone Number [facility] [place] [address] [facility] * (ABNORMAL) Urinalysis reflex to microscopic and culture Urine, clean voided (07/09/2024 1:02 AM SUPPLY CHAIN LOGISTICS MANAGER) Color, ur Straw Yellow Clarity, ur Clear Clear [facility] Specific gravity, ur >1.042(H) 1.003 - 1.030 [facility] pH, urine 7.5 [facility] Comment: Interpretive Data U rine pH is affected by diet, medications, systemic acid-base disturbances, and renal tubular function. pH may affect urinary stone formation. For example, urine pH below 6.0 may help reduce the tendency for calcium phosphate stones and pH greater than 6.0 may reduce the tendency for uric acid stone formation. Source: [facility] [employer] Current Interpretive Data was last revised on 2017 Protein, ur ql Trace Negative [facility] Glucose, ur ql Negative Negative [facility] Ketones, ur Negative Negative [facility] Bilirubin, ur Negative Negative [facility] Blood, ur Negative Negative [facility] Urobilinogen, ur <2.0 <2.0 mg/dL [facility] Nitrite, ur Negative Negative [facility] Leukocyte esterase, ur Negative Negative [facility] UA reflex comment Reflex conditions for microscopic UA and culture not met. [facility] Urine, clean voided 07/09/2024 1:02 AM SUPPLY CHAIN LOGISTICS MANAGER 07/09/2024 1:15 AM SUPPLY CHAIN LOGISTICS MANAGER us Naa Tam MD LAB MICROBIOLOGY - [facility] AL ORDERABLES Final Result Performing Organization Address City/State/[facility] Co de Phone Number [facility] One [facility] Department [place] [address] * ED PERIPHERAL LINE INSERTION (07/08/2024 10:11 PM SUPPLY CHAIN LOGISTICS MANAGER) Narrative Tri Martinez MD - 07/08/2024 10:11 PM SUPPLY CHAIN LOGISTICS MANAGER Atul Barba MD 07/08/2024 10:12 PM [...] Abdomen Pelvis W Contrast (07/08/2024 9:55 PM SUPPLY CHAIN LOGISTICS MANAGER) Anatomical Region Laterality Modality Body N/A Computed Tomogra phy 07/08/2024 10:3 2 PM SUPPLY CHAIN LOGISTICS MANAGER Impressions 07/09/2024 7:23 AM SUPPLY CHAIN LOGISTICS MANAGER Liquid stool within the colon, indicative of diarrheal state. Otherwise, no acute abnormalities in the abdomen or pelvis. Dictated by: Delia Morton MD The radiology attending physician has personally reviewed this study, and had reviewed and/or edited this written report and agrees with it. Electronically signed by: Marlon Kohler M.D. Narrative 07/09/2024 7:23 AM SUPPLY CHAIN LOGISTICS MANAGER EXAMINATION: Computed tomography of the chest, [...] Sepsis Lactate w/ Reflex (07/08/2024 8:56 PM SUPPLY CHAIN LOGISTICS MANAGER) Sepsis Lactate 2.4(H) 0.7 - 2.0 mmol/L Blood 07/08/2024 8:56 PM SUPPLY CHAIN LOGISTICS MANAGER 07/08/2024 9:24 PM SUPPLY CHAIN LOGISTICS MANAGER us Naa Tam MD LAB BLOOD ORDERABLES Fin al Result [facility] Department [place] [address] * eGFR (07/08/2024 8:56 PM SUPPLY CHAIN LOGISTICS MANAGER) eGFR >90 >=60 mL/min/1. 73 m2 [...] last reviewed 2021. Blood 07/08/2024 8:56 PM SUPPLY CHAIN LOGISTICS MANAGER 07/08/2024 9:26 PM SUPPLY CHAIN LOGISTICS MANAGER us Naa Tam MD LAB BLOOD ORDERABLES Fin al Result [facility] Department [place] [address] * Differential, auto (07/08/2024 8:56 PM SUPPLY CHAIN LOGISTICS MANAGER) Neutrophil abs 4.4 1.5 - 6.5 K/cumm Imm gran abs 0.0 0.0 - 0.1 K/cumm [facility] Lymphocyte abs 2.6 0.8 - 3.3 K/cumm [facility] Monocyte abs 0.5 0.2 - 0.8 K/cumm [facility] Eosinophil abs 0.5 0.0 - 0.5 K/cumm [facility] Basophil abs 0.0 0.0 - 0.1 K/cumm [facility] Neutrophil pct 54.7 % [facility] Comment: Interpretive Data Percent cell count reference ranges are not reported, since discordance with absolute values may lead to misinterpretation of CBC data. Current Interpretive Data was last revised on 2017. Imm gran pct 0.2 % [facility] Comment: Interpretive Data Percent cell count reference ranges are not reported, since discordance with absolute values may lead to misinterpretation of CBC data. Current Interpretive Data was last revised on 2017. Lymphocyte pct 32.1 % [facility] Comment: Interpretive Data Percent cell count reference ranges are not reported, since discordance with absolute values may lead to misinterpretation of CBC data. Current Interpretive Data was last revised on 2017. Monocyte pct 6.6 % [facility] Comment: Interpretive Data Percent cell count reference ranges are not reported, since discordance with absolute values may lead to misinterpretation of CBC data. Current Interpretive Data was last revised on 2017. Eosinophil pct 6.0 % [facility] Comment: Interpretive Data Percent cell count reference ranges are not reported, since discordance with absolute values may lead to misinterpretation of CBC data. Current Interpretive Data was last revised on 2017. Basophil pct 0.4 % [facility] Comment: Interpretive Data Percent cell count reference ranges are not reported, since discordance with absolute values may lead to misinterpretation of CBC data. Current Interpretive Data was last revised on 2017. Blood 07/08/2024 8:56 PM SUPPLY CHAIN LOGISTICS MANAGER 07/08/2024 9:27 PM SUPPLY CHAIN LOGISTICS MANAGER us Naa Tam MD LAB BLOOD ORDERABLES Fin al Result [facility] One [facility] Department [place] [address] * Respiratory pathogen panel Nasopharyngeal (07/08/2024 8:56 PM SUPPLY CHAIN LOGISTICS MANAGER) Pathologist [facility] Influenza A RNA Not Detected Not Detected Influenza B RNA Not Detected Not Detected [facility] RSV RNA Not Detected Not Detected [facility] COVID-19 RNA Not Detected Not Detected [facility] Coronavirus 229E RNA Not Detected Not Detected [facility] Coronavirus HKU1 RNA Not Detected Not Detected [facility] Coronavirus NL63 RNA Not Detected Not Detected [facility] Coronavirus OC43 RNA Not Detected Not Detected [facility] Adenovirus DNA Not Detected Not Detected [facility] Metapneumovirus RNA Not Detected Not Detected [facility] Rhinovirus/Enterov irus RNA Not Detected Not Detected [facility] Parainfluenza 1 RNA Not Detected Not Detected [facility] Parainfluenza 2 RNA Not Detected Not Detected [facility] Parainfluenza 3 RNA Not Detected Not Detected [facility] Parainfluenza 4 RNA Not Detected Not Detected [facility] B. pertussis DNA Not Detected Not Detected [facility] B. parapertussis DNA Not Detected Not Detected [facility] C. pneumoniae DNA Not Detected Not Detected [facility] M. pneumoniae DNA Not Detected Not Detected [facility] Nasopharyngeal 07/08/2024 8: 56 PM SUPPLY CHAIN LOGISTICS MANAGER 07/08/2024 9:25 PM SUPPLY CHAIN LOGISTICS MANAGER Narrative [facility] - 07/08/2024 10:16 PM SUPPLY CHAIN LOGISTICS MANAGER Is the Patient experiencing symptoms consistent with COVID?->Yes Surveillance testing for transplant patient?->No Interpretive Data The [employer] FilmArray Respiratory Panel (RP2.1) assay is a [...] assay has FDA clearance for testing of NASCAR RACER swabs. The performance of additional specimen types has been assessed by the performing laboratory. The performance characteristics of this assay have been determined by [facility] Molecular Infectious Disease Laboratory. Current interpretive data was last revised on 22. us Naa Tam MD LAB MICROBIOLOGY - GENER AL ORDERABLES Final Result Performing Organization Address City/[facility]/ZIP Co de Phone Number [facility] [place] [employer] [place] [address] * (ABNORMAL) CBC with auto differential (07/08/2024 8:56 PM SUPPLY CHAIN LOGISTICS MANAGER) [facility] WBC 8.0 3.8 - 9.9 K/cumm Hgb 14.4 13.0 - 17.5 g/dL [facility] Hct 43.3 38.9 - 50.3 % [facility] Plt 236 150 - 400 K/cumm [facility] MPV 12.4(H) 9.1 - 12.3 fL [facility] RBC 4.49 4.30 - 5.80 M/cumm [facility] MCV 96.4 81.3 - 96.4 fL [facility] MCH 32.1 27.1 - 33.3 pg [facility] MCHC 33.3 32.3 - 35.7 g/dL [facility] RDW CV 13.5 11.1 - 14.9 % [facility] RDW SD 47.9 35.7 - 48.1 fL [facility] NRBC abs 0.00 0.00 - 0.01 K/cumm [facility] Blood 07/08/2024 8:56 PM SUPPLY CHAIN LOGISTICS MANAGER 07/08/2024 9:27 PM SUPPLY CHAIN LOGISTICS MANAGER us Naa Tam MD LAB BLOOD ORDERABLES Fin al Result Performing Organization Address [facility]/ZIP Co de Phone Number [facility] [place] [address] * Lipase (07/08/2024 8:56 PM SUPPLY CHAIN LOGISTICS MANAGER) Lipase 32 10 - 99 Units/L Blood 07/08/2024 8:56 PM SUPPLY CHAIN LOGISTICS MANAGER 07/08/2024 9:26 PM SUPPLY CHAIN LOGISTICS MANAGER us Naa Tam MD LAB BLOOD ORDERABLES Fin al Result [facility] One [facility] [place] [address] * (ABNORMAL) Comprehensive metabolic panel (07/08/2024 8:56 PM SUPPLY CHAIN LOGISTICS MANAGER) Sodium 141 135 - 145 mmol/L Potassium, pl 4.5 3.3 - 4.9 mmol/L [facility] Chloride 102 97 - 110 mmol/L [facility] CO2 28 22 - 32 mmol/L [facility] Anion gap 11 2 - 15 mmol/L [facility] BUN 15 6 - 25 mg/dL [facility] Creatinine 0.63(L) 0.80 - 1.30 mg/dL [facility] Glucose 110 70 - 199 mg/dL [facility] Comment: Interpretive Data Fasting glucose [...] Calcium 10.1 8.5 - 10.3 mg/dL [facility] Bilirubin, total 0.2 0.1 - 1.2 mg/dL [facility] Protein, pl 8.0 6.5 - 8.5 g/dL [facility] Albumin 4.1 3.5 - 5.0 g/dL [facility] Alk phos 110 40 - 130 Units/L [facility] ALT 28 7 - 55 Units/L [facility] AST 26 10 - 50 Units/L [facility] Blood 07/08/2024 8:56 PM SUPPLY CHAIN LOGISTICS MANAGER 07/08/2024 9:26 PM SUPPLY CHAIN LOGISTICS MANAGER us Naa Tam MD LAB BLOOD ORDERABLES Fin al Result Performing Organization Address [facility] Co de Phone Number [facility] [place] [address] * ECG 12-LEAD (07/08/2024 8:28 PM SUPPLY CHAIN LOGISTICS MANAGER) Narrative [facility] - 07/08/2024 8:28 PM SUPPLY CHAIN LOGISTICS MANAGER Naa Tam MD 07/08/2024 8:30 PM [...] ORDERABLES Final Re sult Performing Organization Address [facility] Co de Phone Number [facility] * XR Chest 1 View (07/08/2024 8:18 PM SUPPLY CHAIN LOGISTICS MANAGER) Anatomical Region Laterality Modality Body, Chest N/A Computed Radiogr aphy 07/08/2024 8:28 PM SUPPLY CHAIN LOGISTICS MANAGER Impressions 07/08/2024 9:56 PM SUPPLY CHAIN LOGISTICS MANAGER Comparison is made to chest graft [...] Sekou Wolf M.D. Narrative 07/08/2024 9:56 PM SUPPLY CHAIN LOGISTICS MANAGER EXAMINATION: 1 view chest radiograph Procedure [...] Result * POCT glucose (06/28/2024 4:24 PM SUPPLY CHAIN LOGISTICS MANAGER) Glucose, POC 191 70 - 199 mg/dL Blood 06/28/2024 4:24 PM SUPPLY CHAIN LOGISTICS MANAGER 06/28/2024 4:24 PM SUPPLY CHAIN LOGISTICS MANAGER Kami Dupont MD LAB POCT ORDERABLES - DEV ICE Final Result [facility] One [facility] [place] [address] * POCT glucose (06/28/2024 12:30 PM SUPPLY CHAIN LOGISTICS MANAGER) Glucose, POC 197 70 - 199 mg/dL Blood 06/28/2024 12:3 0 PM SUPPLY CHAIN LOGISTICS MANAGER 06/28/2024 12:30 PM SUPPLY CHAIN LOGISTICS MANAGER Kami Dupont MD LAB POCT ORDERABLES - DEV ICE Final Result Performing Organization Address City/[facility] Co de Phone Number [facility] [place] [employer] [place] [address] * POCT glucose (06/28/2024 7:43 AM SUPPLY CHAIN LOGISTICS MANAGER) Glucose, POC 191 70 - 199 mg/dL Blood 06/28/2024 7:43 AM SUPPLY CHAIN LOGISTICS MANAGER 06/28/2024 7:43 AM SUPPLY CHAIN LOGISTICS MANAGER Kami Dupont MD LAB POCT ORDERABLES - DEV ICE Final Result Performing Organization Address [facility] Co de Phone Number [facility] [place] [employer] [place] [address] * POCT glucose (06/28/2024 4:01 AM SUPPLY CHAIN LOGISTICS MANAGER) Glucose, POC 173 70 - 199 mg/dL Blood 06/28/2024 4:01 AM SUPPLY CHAIN LOGISTICS MANAGER 06/28/2024 4:01 AM SUPPLY CHAIN LOGISTICS MANAGER Kami Dupont MD LAB POCT ORDERABLES - DEV ICE Final Result Performing Organization Address [facility] Co de Phone Number [facility] [place] [employer] [place] [address] * (ABNORMAL) POCT glucose (06/27/2024 11:28 PM SUPPLY CHAIN LOGISTICS MANAGER) Glucose, POC 220(H) 70 - 199 mg/dL Comment:Use Protocol Glucose comment 1 Use Protocol [facility] Blood 06/27/2024 11:2 8 PM SUPPLY CHAIN LOGISTICS MANAGER 06/27/2024 11:28 PM SUPPLY CHAIN LOGISTICS MANAGER Kami Dupont MD LAB POCT ORDERABLES - DEV ICE Final Result Performing Organization Address City/[facility] Co de Phone Number [facility] [place] [employer] [place] [address] * eGFR (06/27/2024 9:30 PM SUPPLY CHAIN LOGISTICS MANAGER) eGFR >90 >=60 mL/min/1. 73 m2 [...] last reviewed 2021. Blood 06/27/2024 9:30 PM SUPPLY CHAIN LOGISTICS MANAGER 06/27/2024 9:45 PM SUPPLY CHAIN LOGISTICS MANAGER Kami Dupont MD LAB BLOOD ORDERABLES Lulu l Result [facility] [place] [employer] [place] [address] * Phosphorus (06/27/2024 9:30 PM SUPPLY CHAIN LOGISTICS MANAGER) Pathologist [facility] Phosphorus, pl 3.3 2.3 - 4.5 mg/dL Comment:Repeated and Verifie d Blood 06/27/2024 9:30 PM SUPPLY CHAIN LOGISTICS MANAGER 06/27/2024 9:45 PM SUPPLY CHAIN LOGISTICS MANAGER Kami Dupont MD LAB BLOOD ORDERABLES Lulu l Result [facility] [place] [employer] [place] [address] * Magnesium (06/27/2024 9:30 PM SUPPLY CHAIN LOGISTICS MANAGER) Pathologist [facility] Magnesium 1.9 1.4 - 2.5 mg/dL Blood 06/27/2024 9:30 PM SUPPLY CHAIN LOGISTICS MANAGER 06/27/2024 9:45 PM SUPPLY CHAIN LOGISTICS MANAGER Kami Dupont MD LAB BLOOD ORDERABLES Lulu l Result [facility] [place] [address] * (ABNORMAL) Basic metabolic panel (06/27/2024 9:30 PM SUPPLY CHAIN LOGISTICS MANAGER) Pathologist [facility] Sodium 141 135 - 145 mmol/L Potassium, pl 4.4 3.3 - 4.9 mmol/L [facility] Chloride 105 97 - 110 mmol/L [facility] CO2 28 22 - 32 mmol/L [facility] Anion gap 8 2 - 15 mmol/L [facility] BUN 9 6 - 25 mg/dL [facility] Creatinine 0.47(L) 0.80 - 1.30 mg/dL [facility] Glucose 208(H) 70 - 199 mg/dL [facility] Comment: Interpretive Data Fasting glucose [...] 2022. Calcium 8.9 8.5 - 10.3 mg/dL [facility] Blood 06/27/2024 9:30 PM SUPPLY CHAIN LOGISTICS MANAGER 06/27/2024 9:45 PM SUPPLY CHAIN LOGISTICS MANAGER Kami Dupont MD LAB BLOOD ORDERABLES Lulu l Result Performing Organization Address City/[facility] Co de Phone Number [facility] [place] [employer] [place] [address] * POCT glucose (06/27/2024 8:39 PM SUPPLY CHAIN LOGISTICS MANAGER) Glucose, POC 195 70 - 199 mg/dL Blood 06/27/2024 8:39 PM SUPPLY CHAIN LOGISTICS MANAGER 06/27/2024 8:39 PM SUPPLY CHAIN LOGISTICS MANAGER Kami Dupont MD LAB POCT ORDERABLES - DEV ICE Final Result Performing Organization Address [facility] [place] [address] * POCT glucose (06/27/2024 5:10 PM SUPPLY CHAIN LOGISTICS MANAGER) Glucose, POC 194 70 - 199 mg/dL Blood 06/27/2024 5:10 PM SUPPLY CHAIN LOGISTICS MANAGER 06/27/2024 5:10 PM SUPPLY CHAIN LOGISTICS MANAGER Kami Dupont MD LAB POCT ORDERABLES - DEV ICE Final Result Performing Organization Address [facility] de Phone Number [facility] [place] [address] * (ABNORMAL) POCT glucose (06/27/2024 4:27 PM SUPPLY CHAIN LOGISTICS MANAGER) Glucose, POC 224(H) 70 - 199 mg/dL Blood 06/27/2024 4:27 PM SUPPLY CHAIN LOGISTICS MANAGER 06/27/2024 4:27 PM SUPPLY CHAIN LOGISTICS MANAGER us Kami Dupont MD LAB POCT ORDERABLES - DEV ICE Final Result Performing Organization Address City/[facility] Co de Phone Number [facility] [place] [address] * POCT glucose (06/27/2024 1:06 PM SUPPLY CHAIN LOGISTICS MANAGER) Glucose, POC 173 70 - 199 mg/dL Blood 06/27/2024 1:06 PM SUPPLY CHAIN LOGISTICS MANAGER 06/27/2024 1:06 PM SUPPLY CHAIN LOGISTICS MANAGER Kami Dupont MD LAB POCT ORDERABLES - DEV ICE Final Result Performing Organization Address City/[facility] de Phone Number [facility] [place] [place] [address] * POCT glucose (06/27/2024 9:59 AM SUPPLY CHAIN LOGISTICS MANAGER) Glucose, POC 158 70 - 199 mg/dL Blood 06/27/2024 9:59 AM SUPPLY CHAIN LOGISTICS MANAGER 06/27/2024 9:59 AM SUPPLY CHAIN LOGISTICS MANAGER Kami Dupont MD LAB POCT ORDERABLES - DEV ICE Final Result Performing Organization Address [facility] de Phone Number [facility] [address] * eGFR (06/26/2024 10:21 PM SUPPLY CHAIN LOGISTICS MANAGER) eGFR >90 >=60 mL/min/1. 73 m2 [...] reviewed 2021. Blood 06/26/2024 10:2 1 PM SUPPLY CHAIN LOGISTICS MANAGER 06/26/2024 10:53 PM SUPPLY CHAIN LOGISTICS MANAGER us Kami Dupont MD LAB BLOOD ORDERABLES Lulu brijesh Result [facility] One [facility] [place] [address] * Differential, auto (06/26/2024 10:21 PM SUPPLY CHAIN LOGISTICS MANAGER) Neutrophil abs 5.0 1.5 - 6.5 K/cumm Imm gran abs 0.0 0.0 - 0.1 K/cumm [facility] Lymphocyte abs 2.4 0.8 - 3.3 K/cumm [facility] Monocyte abs 0.8 0.2 - 0.8 K/cumm [facility] Eosinophil abs 0.4 0.0 - 0.5 K/cumm [facility] Basophil abs 0.0 0.0 - 0.1 K/cumm [facility] Neutrophil pct 58.2 % [facility] Comment: Interpretive Data Percent cell count reference ranges are not reported, since discordance with absolute values may lead to misinterpretation of CBC data. Current Interpretive Data was last revised on 2017. Imm gran pct 0.3 % [facility] Comment: Interpretive Data Percent cell count reference ranges are not reported, since discordance with absolute values may lead to misinterpretation of CBC data. Current Interpretive Data was last revised on 2017. Lymphocyte pct 27.9 % [facility] Comment: Interpretive Data Percent cell count reference ranges are not reported, since discordance with absolute values may lead to misinterpretation of CBC data. Current Interpretive Data was last revised on 2017. Monocyte pct 9.2 % [facility] Comment: Interpretive Data Percent cell count reference ranges are not reported, since discordance with absolute values may lead to misinterpretation of CBC data. Current Interpretive Data was last revised on 2017. Eosinophil pct 4.1 % [facility] Comment: Interpretive Data Percent cell count reference ranges are not reported, since discordance with absolute values may lead to misinterpretation of CBC data. Current Interpretive Data was last revised on 2017. Basophil pct 0.3 % [facility] Comment: Interpretive Data Percent cell count reference ranges are not reported, since discordance with absolute values may lead to misinterpretation of CBC data. Current Interpretive Data was last revised on 2017. Blood 06/26/2024 10:2 1 PM SUPPLY CHAIN LOGISTICS MANAGER 06/26/2024 10:53 PM SUPPLY CHAIN LOGISTICS MANAGER Kami Dupont MD LAB BLOOD ORDERABLES Lulu coley Result [facility] One [facility] [place] [address] * (ABNORMAL) CBC with auto differential (06/26/2024 10:21 PM SUPPLY CHAIN LOGISTICS MANAGER) WBC 8.6 3.8 - 9.9 K/cumm Hgb 13.1 13.0 - 17.5 g/dL [facility] Hct 39.1 38.9 - 50.3 % [facility] Plt 173 150 - 400 K/cumm [facility] MPV 13.1(H) 9.1 - 12.3 fL [facility] RBC 4.07(L) 4.30 - 5.80 M/cumm [facility] MCV 96.1 81.3 - 96.4 fL [facility] MCH 32.2 27.1 - 33.3 pg [facility] MCHC 33.5 32.3 - 35.7 g/dL [facility] RDW CV 13.5 11.1 - 14.9 % [facility] RDW SD 47.8 35.7 - 48.1 fL [facility] NRBC abs 0.00 0.00 - 0.01 K/cumm [facility] Blood 06/26/2024 10:2 1 PM SUPPLY CHAIN LOGISTICS MANAGER 06/26/2024 10:53 PM SUPPLY CHAIN LOGISTICS MANAGER Kami Dupont MD LAB BLOOD ORDERABLES Lulu l Result [facility] [address] * Hepatitis B Surface Antigen Blood (06/26/2024 10:21 PM SUPPLY CHAIN LOGISTICS MANAGER) HepBsAg Nonreactive Nonreactive Blood 06/26/2024 10:2 1 PM SUPPLY CHAIN LOGISTICS MANAGER 06/26/2024 10:53 PM SUPPLY CHAIN LOGISTICS MANAGER Kami Dupont MD LAB MICROBIOLOGY - GENERA L ORDERABLES Final Result Performing Organization Address [facility] Co de Phone Number [facility] [place] [employer] [place] [address] * (ABNORMAL) Phosphorus (06/26/2024 10:21 PM SUPPLY CHAIN LOGISTICS MANAGER) Pathologist [facility] Phosphorus, pl <0.7(L) 2.3 - 4.5 mg/dL Comment:Repeated and Verifie d Blood 06/26/2024 10:2 1 PM SUPPLY CHAIN LOGISTICS MANAGER 06/26/2024 10:53 PM SUPPLY CHAIN LOGISTICS MANAGER Kami Dupont MD LAB BLOOD ORDERABLES Lulu l Result Performing Organization Address City/[facility]/ZIP Co de Phone Number [facility] [place] [address] * Magnesium (06/26/2024 10:21 PM SUPPLY CHAIN LOGISTICS MANAGER) Pathologist [facility] Magnesium 2.0 1.4 - 2.5 mg/dL Blood 06/26/2024 10:2 1 PM SUPPLY CHAIN LOGISTICS MANAGER 06/26/2024 10:53 PM SUPPLY CHAIN LOGISTICS MANAGER Kami Dupont MD LAB BLOOD ORDERABLES Lulu l Result [facility] [place] [employer] [place] [address] * (ABNORMAL) Basic metabolic panel (06/26/2024 10:21 PM SUPPLY CHAIN LOGISTICS MANAGER) Pathologist [facility] Sodium 141 135 - 145 mmol/L Potassium, pl 4.7 3.3 - 4.9 mmol/L [facility] Chloride 106 97 - 110 mmol/L [facility] CO2 28 22 - 32 mmol/L [facility] Anion gap 7 2 - 15 mmol/L [facility] BUN 11 6 - 25 mg/dL [facility] Creatinine 0.47(L) 0.80 - 1.30 mg/dL [facility] Glucose 213(H) 70 - 199 mg/dL [facility] Comment: Interpretive Data Fasting glucose [...] 2022. Calcium 9.3 8.5 - 10.3 mg/dL [facility] Blood 06/26/2024 10:2 1 PM SUPPLY CHAIN LOGISTICS MANAGER 06/26/2024 10:53 PM SUPPLY CHAIN LOGISTICS MANAGER us Kami Dupont MD LAB BLOOD ORDERABLES Lulu coley Result [facility] One [facility] [place] [address] * HIV 1/2 Antibody plus p24 Antigen Blood (06/26/2024 3:21 PM SUPPLY CHAIN LOGISTICS MANAGER) Pathologist [facility] HIV 1/2 ab + p24 ag Nonreactive Nonreactive Comment:Nonreactive for HIV- 1 antigen and HIV-1/HIV-2 antibodies. No laboratory evidence of HIV infection. If acute HIV infection is suspected, consider testing for HIV-1 RNA. Current interpretive data was last revised on 22. Blood 06/26/2024 3:21 PM SUPPLY CHAIN LOGISTICS MANAGER 06/26/2024 3:41 PM SUPPLY CHAIN LOGISTICS MANAGER Kami Dupont MD LAB MICROBIOLOGY - GENERA L ORDERABLES Final Result Performing Organization Address [facility] de Phone Number [facility] [employer] [place] [address] * Hepatitis C antibody Blood (06/26/2024 3:21 PM SUPPLY CHAIN LOGISTICS MANAGER) Hep C Ab Nonreactive Nonreactive Comment:Antibodies to HCV no t detected. Does NOT exclude the possibility of recent exposure to HCV. Current interpretive data was last revised on 22 Blood 06/26/2024 3:21 PM SUPPLY CHAIN LOGISTICS MANAGER 06/26/2024 3:41 PM SUPPLY CHAIN LOGISTICS MANAGER Kami Dupont MD LAB MICROBIOLOGY - GENERA L ORDERABLES Final Result Performing Organization Address [facility] de Phone Number [facility] [place] [place] [address] * RPR Blood (06/26/2024 3:21 PM SUPPLY CHAIN LOGISTICS MANAGER) RPR Nonreactive Nonreactive Blood 06/26/2024 3:21 PM SUPPLY CHAIN LOGISTICS MANAGER 06/26/2024 3:41 PM SUPPLY CHAIN LOGISTICS MANAGER Kami Dupont MD LAB MICROBIOLOGY - GENERA L ORDERABLES Final Result Performing Organization Address [facility] de Phone Number [facility] [place] [employer] [place] [address] * (ABNORMAL) Phosphorus (06/26/2024 3:21 PM SUPPLY CHAIN LOGISTICS MANAGER) Phosphorus, pl 0.7(L) 2.3 - 4.5 mg/dL Comment:Repeated and Verifie d Blood 06/26/2024 3:21 PM SUPPLY CHAIN LOGISTICS MANAGER 06/26/2024 3:41 PM SUPPLY CHAIN LOGISTICS MANAGER us Kami Dupont MD LAB BLOOD ORDERABLES Lulu l Result Performing Organization Address City/[facility] Co de Phone Number [facility] [place] [address] * eGFR (06/26/2024 12:16 AM SUPPLY CHAIN LOGISTICS MANAGER) eGFR >90 >=60 mL/min/1. 73 m2 [...] reviewed 2021. Blood 06/26/2024 12:1 6 AM SUPPLY CHAIN LOGISTICS MANAGER 06/26/2024 12:39 AM SUPPLY CHAIN LOGISTICS MANAGER us Patricia Bryant MD LAB BLOOD ORDERABLES Final Res ult Performing Organization Address [facility]/ZIP Co de Phone Number [facility] [place] [address] * (ABNORMAL) Phosphorus (06/26/2024 12:16 AM SUPPLY CHAIN LOGISTICS MANAGER) Phosphorus, pl <0.7(L) 2.3 - 4.5 mg/dL Comment:Repeated and Verifie d Blood 06/26/2024 12:1 6 AM SUPPLY CHAIN LOGISTICS MANAGER 06/26/2024 12:39 AM SUPPLY CHAIN LOGISTICS MANAGER Patricia Bryant MD LAB BLOOD ORDERABLES Final Res ult Performing Organization Address City/[facility] Co de Phone Number [facility] [place] [address] * Magnesium (06/26/2024 12:16 AM SUPPLY CHAIN LOGISTICS MANAGER) [facility] Magnesium 1.9 1.4 - 2.5 mg/dL Blood 06/26/2024 12:1 6 AM SUPPLY CHAIN LOGISTICS MANAGER 06/26/2024 12:39 AM SUPPLY CHAIN LOGISTICS MANAGER Patricia Bryant MD LAB BLOOD ORDERABLES Final Res ult Performing Organization Address [facility] de Phone Number [facility] [place] [address] * (ABNORMAL) Basic metabolic panel (06/26/2024 12:16 AM SUPPLY CHAIN LOGISTICS MANAGER) [facility] Sodium 142 135 - 145 mmol/L Potassium, pl 4.4 3.3 - 4.9 mmol/L [facility] Comment:Hemolyzed; Potassium value may be falsely elevated by as much as 0.3-0.5 mmol/L. Suggest redraw and reanalysis. Chloride 109 97 - 110 mmol/L [facility] CO2 29 22 - 32 mmol/L [facility] Anion gap 4 2 - 15 mmol/L [facility] BUN 13 6 - 25 mg/dL [facility] Creatinine 0.53(L) 0.80 - 1.30 mg/dL [facility] Glucose 177 70 - 199 mg/dL [facility] Comment: Interpretive Data Fasting glucose [...] 2022. Calcium 9.0 8.5 - 10.3 mg/dL [facility] Blood 06/26/2024 12:1 6 AM SUPPLY CHAIN LOGISTICS MANAGER 06/26/2024 12:39 AM SUPPLY CHAIN LOGISTICS MANAGER Patricia Bryant MD LAB BLOOD ORDERABLES Final Res ult Performing Organization Address City/[facility]/ZIP Co de Phone Number [facility] [place] [address] * POCT glucose (06/23/2024 11:36 AM SUPPLY CHAIN LOGISTICS MANAGER) Pathologist [facility] Glucose, POC 95 70 - 199 mg/dL Blood 06/23/2024 11:3 6 AM SUPPLY CHAIN LOGISTICS MANAGER 06/23/2024 11:36 AM SUPPLY CHAIN LOGISTICS MANAGER Result [facility] Patricia Bryant MD LAB POCT ORDERABLES - DEVICE F inal Result Performing Organization Address [facility] de Phone Number [facility] [place] [employer] [place] [address] * (ABNORMAL) CBC without differential (06/23/2024 9:07 AM SUPPLY CHAIN LOGISTICS MANAGER) [facility] WBC 4.7 3.8 - 9.9 K/cumm Hgb 12.5(L) 13.0 - 17.5 g/dL [facility] Hct 37.4(L) 38.9 - 50.3 % [facility] Plt 145(L) 150 - 400 K/cumm [facility] MPV 12.6(H) 9.1 - 12.3 fL [facility] RBC 3.94(L) 4.30 - 5.80 M/cumm [facility] MCV 94.9 81.3 - 96.4 fL [facility] MCH 31.7 27.1 - 33.3 pg [facility] MCHC 33.4 32.3 - 35.7 g/dL [facility] RDW CV 12.9 11.1 - 14.9 % [facility] RDW SD 45.1 35.7 - 48.1 fL [facility] NRBC abs 0.00 0.00 - 0.01 K/cumm [facility] Blood 06/23/2024 9:07 AM SUPPLY CHAIN LOGISTICS MANAGER 06/23/2024 9:28 AM SUPPLY CHAIN LOGISTICS MANAGER Patricia Bryant MD LAB BLOOD ORDERABLES Final Res ult [facility] [place] [employer] [place] [address] * eGFR (06/23/2024 9:00 AM SUPPLY CHAIN LOGISTICS MANAGER) eGFR >90 >=60 mL/min/1. 73 m2 [...] last reviewed 2021. Blood 06/23/2024 9:00 AM SUPPLY CHAIN LOGISTICS MANAGER 06/23/2024 10:59 AM SUPPLY CHAIN LOGISTICS MANAGER Patricia Bryant MD LAB BLOOD ORDERABLES Final Res ult [facility] [place] [place] [address] * Phosphorus (06/23/2024 9:00 AM SUPPLY CHAIN LOGISTICS MANAGER) Pathologist [facility] Phosphorus, pl 2.3 2.3 - 4.5 mg/dL Blood 06/23/2024 9:00 AM SUPPLY CHAIN LOGISTICS MANAGER 06/23/2024 10:59 AM SUPPLY CHAIN LOGISTICS MANAGER Patricia Bryant MD LAB BLOOD ORDERABLES Final Res ult Performing Organization Address City/[facility] Co de Phone Number [facility] [place] [address] * Magnesium (06/23/2024 9:00 AM SUPPLY CHAIN LOGISTICS MANAGER) [facility] Magnesium 1.7 1.4 - 2.5 mg/dL Blood 06/23/2024 9:00 AM SUPPLY CHAIN LOGISTICS MANAGER 06/23/2024 10:59 AM SUPPLY CHAIN LOGISTICS MANAGER Patricia Bryant MD LAB BLOOD ORDERABLES Final Res ult Performing Organization Address [facility] Co de Phone Number [facility] [place] [employer] [place] [address] * Vancomycin level trough (06/23/2024 9:00 AM SUPPLY CHAIN LOGISTICS MANAGER) [facility] Vancomycin trough 15.2 10.0 - 20.0 mcg/mL Blood 06/23/2024 9:00 AM SUPPLY CHAIN LOGISTICS MANAGER 06/23/2024 10:59 AM SUPPLY CHAIN LOGISTICS MANAGER Result [facility] Patricia Bryant MD LAB BLOOD ORDERABLES Final Res ult Performing Organization Address City/[facility] [place] [address] * (ABNORMAL) Basic metabolic panel (06/23/2024 9:00 AM SUPPLY CHAIN LOGISTICS MANAGER) Pathologist [facility] Sodium 143 135 - 145 mmol/L Potassium, pl 3.7 3.3 - 4.9 mmol/L [facility] Chloride 108 97 - 110 mmol/L [facility] CO2 28 22 - 32 mmol/L [facility] Anion gap 7 2 - 15 mmol/L [facility] BUN 3(L) 6 - 25 mg/dL [facility] Creatinine 0.50(L) 0.80 - 1.30 mg/dL [facility] Glucose 271(H) 70 - 199 mg/dL [facility] Comment: Interpretive Data Fasting glucose [...] 2022. Calcium 9.0 8.5 - 10.3 mg/dL [facility] Blood 06/23/2024 9:00 AM SUPPLY CHAIN LOGISTICS MANAGER 06/23/2024 10:59 AM SUPPLY CHAIN LOGISTICS MANAGER us Patricia Bryant MD LAB BLOOD ORDERABLES Final Res ult [facility] One [facility] [place] [address] * IR G To GJ-Tube Replacement (06/22/2024 1:24 PM SUPPLY CHAIN LOGISTICS MANAGER) Anatomical Region Laterality Modality Body N/A X-Ray Angiograph y 06/22/2024 1:47 PM SUPPLY CHAIN LOGISTICS MANAGER Impressions 06/22/2024 4:13 PM SUPPLY CHAIN LOGISTICS MANAGER Successful percutaneous 18 Fr 45 cm [...] Sean Hillman M.D. Narrative 06/22/2024 4:13 PM SUPPLY CHAIN LOGISTICS MANAGER EXAMINATION: GASTROJEJUNOSTOMY TUBE EXCHANGE HISTORY/INDICATION: 64 [...] procedure. TECHNIQUE: Prior to beginning the procedure, [place] Protocol was performed to confirm the patient's [...] placed in the proximal jejunum. A 18 Ghanaian, 45 cm long JELLY single/double lumen gastrojejunostomy [...] procedure. TECHNIQUE: Prior to beginning the procedure, [place] Protocol was performed to confirm the patient's [...] placed in the proximal jejunum. A 18 Ghanaian, 45 cm long JELLY single/double lumen gastrojejunostomy [...] by: Sean Hillman M.D. Patricia Bryant MD [facility] IR PROCEDURES Final Result * C. difficile testing Stool (06/21/2024 11:11 AM SUPPLY CHAIN LOGISTICS MANAGER) [facility] Result Negative Negative Toxin Result Negative Negative [facility] C. diff result Negative, free toxin Negative, free toxin [facility] C. diff interp Negative for toxigenic Clostridioides (Clostridium) difficile. Analysis was performed using a glutamate dehydrogenase antigen detection assay combined with a C. difficile toxin detection assay. [facility] Stool 06/21/2024 11:1 1 AM SUPPLY CHAIN LOGISTICS MANAGER 06/21/2024 12:55 PM SUPPLY CHAIN LOGISTICS MANAGER Narrative [facility] - 06/21/2024 2:38 PM SUPPLY CHAIN LOGISTICS MANAGER Testing for C. difficile is not recommended within 4 days of a negative result, 10 days of a positive, or 24 hours after laxative administration. If this order is clinically indicated, contact the lab and enter the passcode to complete this order.->[id number] Patricia Bryant MD LAB MICROBIOLOGY - GENERAL ORD ERABLES Final Result Performing Organization Address [facility] Co de Phone Number [facility] [place] [employer] [place] [address] * Infection Prevention VRE Culture Stool (06/21/2024 11:10 AM SUPPLY CHAIN LOGISTICS MANAGER) Report Final Report: Negative Stool 06/21/2024 11:1 0 AM SUPPLY CHAIN LOGISTICS MANAGER 06/21/2024 2:41 PM SUPPLY CHAIN LOGISTICS MANAGER Narrative [facility] 06/23/2024 11:15 PM SUPPLY CHAIN LOGISTICS MANAGER Surveillance culture for Infection Prevention purposes only; results indicate colonization, not infection requiring treatment. Testing performed by [facility] ([phone]). Patricia Bryant MD LAB MICROBIOLOGY - GENERAL ORD ERABLES Final Result Performing Organization Address [facility] [place] [address] * Vancomycin level trough Draw trough 30 minutes prior to 4th dose. (06/21/2024 7:16 AM SUPPLY CHAIN LOGISTICS MANAGER) Vancomycin trough 16.8 10.0 - 20.0 mcg/mL Blood 06/21/2024 7:16 AM SUPPLY CHAIN LOGISTICS MANAGER 06/21/2024 7:27 AM SUPPLY CHAIN LOGISTICS MANAGER Narrative [facility] 06/21/2024 8:10 AM SUPPLY CHAIN LOGISTICS MANAGER Draw trough 30 minutes prior to 4th dose. Patricia Bryant MD LAB BLOOD ORDERABLES Final Res ult Performing Organization Address [facility] Co de Phone Number [facility] [place] [employer] [place] [address] * eGFR (06/21/2024 5:03 AM SUPPLY CHAIN LOGISTICS MANAGER) Pathologist [facility] eGFR >90 >=60 mL/min/1. 73 [...] last reviewed 2021. Blood 06/21/2024 5:03 AM SUPPLY CHAIN LOGISTICS MANAGER 06/21/2024 5:14 AM SUPPLY CHAIN LOGISTICS MANAGER us Patricia Bryant MD LAB BLOOD ORDERABLES Final Res ult [facility] One [facility] [place] [address] * Differential, auto (06/21/2024 5:03 AM SUPPLY CHAIN LOGISTICS MANAGER) [facility] Neutrophil abs 1.7 1.5 - 6.5 K/cumm Imm gran abs 0.0 0.0 - 0.1 K/cumm [facility] Lymphocyte abs 1.7 0.8 - 3.3 K/cumm [facility] Monocyte abs 0.6 0.2 - 0.8 K/cumm [facility] Eosinophil abs 0.3 0.0 - 0.5 K/cumm [facility] Basophil abs 0.0 0.0 - 0.1 K/cumm [facility] Neutrophil pct 38.8 % [facility] Comment: Interpretive Data Percent cell count reference ranges are not reported, since discordance with absolute values may lead to misinterpretation of CBC data. Current Interpretive Data was last revised on 2017. Imm gran pct 0.2 % [facility] Comment: Interpretive Data Percent cell count reference ranges are not reported, since discordance with absolute values may lead to misinterpretation of CBC data. Current Interpretive Data was last revised on 2017. Lymphocyte pct 40.5 % [facility] Comment: Interpretive Data Percent cell count reference ranges are not reported, since discordance with absolute values may lead to misinterpretation of CBC data. Current Interpretive Data was last revised on 2017. Monocyte pct 13.4 % [facility] Comment: Interpretive Data Percent cell count reference ranges are not reported, since discordance with absolute values may lead to misinterpretation of CBC data. Current Interpretive Data was last revised on 2017. Eosinophil pct 6.6 % [facility] Comment: Interpretive Data Percent cell count reference ranges are not reported, since discordance with absolute values may lead to misinterpretation of CBC data. Current Interpretive Data was last revised on 2017. Basophil pct 0.5 % [facility] Comment: Interpretive Data Percent cell count reference ranges are not reported, since discordance with absolute values may lead to misinterpretation of CBC data. Current Interpretive Data was last revised on 2017. Blood 06/21/2024 5:03 AM SUPPLY CHAIN LOGISTICS MANAGER 06/21/2024 5:14 AM SUPPLY CHAIN LOGISTICS MANAGER us Patricia Bryant MD LAB BLOOD ORDERABLES Final Res ult [facility] One [facility] Department of Laboratories [place], [place] [id number] * (ABNORMAL) CBC with auto differential (06/21/2024 5:03 AM SUPPLY CHAIN LOGISTICS MANAGER) WBC 4.3 3.8 - 9.9 K/cumm Hgb 11.6(L) 13.0 - 17.5 g/dL [facility] Hct 34.5(L) 38.9 - 50.3 % [facility] Plt 132(L) 150 - 400 K/cumm [facility] MPV 11.3 9.1 - 12.3 fL [facility] RBC 3.53(L) 4.30 - 5.80 M/cumm [facility] MCV 97.7(H) 81.3 - 96.4 fL [facility] MCH 32.9 27.1 - 33.3 pg [facility] MCHC 33.6 32.3 - 35.7 g/dL [facility] RDW CV 13.4 11.1 - 14.9 % [facility] RDW SD 48.0 35.7 - 48.1 fL [facility] NRBC abs 0.00 0.00 - 0.01 K/cumm [facility] Blood 06/21/2024 5:03 AM SUPPLY CHAIN LOGISTICS MANAGER 06/21/2024 5:14 AM SUPPLY CHAIN LOGISTICS MANAGER Patricia Bryant MD LAB BLOOD ORDERABLES Final Res ult Performing Organization Address City/[facility]/ZIP Co de Phone Number [facility] [place] [address] * Phosphorus (06/21/2024 5:03 AM SUPPLY CHAIN LOGISTICS MANAGER) Phosphorus, pl 3.1 2.3 - 4.5 mg/dL Blood 06/21/2024 5:03 AM SUPPLY CHAIN LOGISTICS MANAGER 06/21/2024 5:14 AM SUPPLY CHAIN LOGISTICS MANAGER us Patricia Bryant MD LAB BLOOD ORDERABLES Final Res ult [facility] [place] [address] * Magnesium (06/21/2024 5:03 AM SUPPLY CHAIN LOGISTICS MANAGER) Pathologist [facility] Magnesium 1.9 1.4 - 2.5 mg/dL Blood 06/21/2024 5:03 AM SUPPLY CHAIN LOGISTICS MANAGER 06/21/2024 5:14 AM SUPPLY CHAIN LOGISTICS MANAGER us Patricia Bryant MD LAB BLOOD ORDERABLES Final Res ult [facility] One [facility] [place] [address] * (ABNORMAL) Comprehensive metabolic panel (06/21/2024 5:03 AM SUPPLY CHAIN LOGISTICS MANAGER) Sodium 145 135 - 145 mmol/L Potassium, pl 3.4 3.3 - 4.9 mmol/L [facility] Chloride 112(H) 97 - 110 mmol/L [facility] CO2 27 22 - 32 mmol/L [facility] Anion gap 6 2 - 15 mmol/L [facility] BUN 9 6 - 25 mg/dL [facility] Creatinine 0.57(L) 0.80 - 1.30 mg/dL [facility] Glucose 106 70 - 199 mg/dL [facility] Comment: Interpretive Data Fasting glucose [...] 2022. Calcium 8.6 8.5 - 10.3 mg/dL [facility] Bilirubin, total 0.2 0.1 - 1.2 mg/dL [facility] Protein, pl 5.6(L) 6.5 - 8.5 g/dL [facility] Albumin 2.7(L) 3.5 - 5.0 g/dL [facility] Alk phos 61 40 - 130 Units/L [facility] ALT 15 7 - 55 Units/L [facility] AST 25 10 - 50 Units/L [facility] Blood 06/21/2024 5:03 AM SUPPLY CHAIN LOGISTICS MANAGER 06/21/2024 5:14 AM SUPPLY CHAIN LOGISTICS MANAGER Patricia Bryant MD LAB BLOOD ORDERABLES Final Res ult Performing Organization Address [facility] Co de Phone Number [facility] [place] [address] * (ABNORMAL) MSSA/MRSA (Staphylococcus aureus) Culture Nasal (06/20/2024 10:30 PM SUPPLY CHAIN LOGISTICS MANAGER) Report Final Report: Methicillin-resist ant Staphylococcus aureus Methicillin-resist ant Staphylococcus aureus #2 (.) Organism METHICILLIN-RESIST ANT STAPHYLOCOCCUS AUREUS [facility] Organism METHICILLIN-RESIST ANT STAPHYLOCOCCUS AUREUS [facility] Nasal 06/20/2024 10:3 0 PM SUPPLY CHAIN LOGISTICS MANAGER 06/20/2024 10:43 PM SUPPLY CHAIN LOGISTICS MANAGER Narrative [facility] - 06/23/2024 10:45 AM SUPPLY CHAIN LOGISTICS MANAGER Testing performed by [facility] ([phone]). Patricia Bryant MD LAB MICROBIOLOGY - GENERAL ORD ERABLES Final Result Performing Organization Address [facility] Co de Phone Number [facility] [place] [address] * XR Abdomen Ap 1 Vw (06/20/2024 10:29 AM SUPPLY CHAIN LOGISTICS MANAGER) Anatomical Region Laterality Modality Body, Abdomen N/A Computed Radiogr aphy 06/20/2024 10:5 3 AM SUPPLY CHAIN LOGISTICS MANAGER Impressions 06/20/2024 11:51 AM SUPPLY CHAIN LOGISTICS MANAGER Gastrostomy tube. Colonic distention is improved. No radiographic evidence of obstruction. Dictated by: Hunter Hernandez M.D (Ramanan). The radiology attending physician has personally reviewed this study, and had reviewed and/or edited this written report and agrees with it. Electronically signed by: Byron Moya M.D. Narrative 06/20/2024 11:51 AM SUPPLY CHAIN LOGISTICS MANAGER EXAMINATION: Abdomen, one view. HISTORY: Abdominal [...] and culture Urine, bladder (06/19/2024 9:34 PM SUPPLY CHAIN LOGISTICS MANAGER) Color, ur Straw Yellow Clarity, ur Clear Clear [facility] Specific gravity, ur 1.021 1.003 - 1.030 [facility] pH, urine 7.0 [facility] Comment: Interpretive Data U rine pH is affected by diet, medications, systemic acid-base disturbances, and renal tubular function. pH may affect urinary stone formation. For example, urine pH below 6.0 may help reduce the tendency for calcium phosphate stones and pH greater than 6.0 may reduce the tendency for uric acid stone formation. Source: Ord Furious Current Interpretive Data was last revised on 2017 Protein, ur ql 1+(A) Negative [facility] Glucose, ur ql Negative Negative [facility] Ketones, ur Negative Negative [facility] Bilirubin, ur Negative Negative [facility] Blood, ur Negative Negative [facility] Urobilinogen, ur <2.0 <2.0 mg/dL [facility] Nitrite, ur Negative Negative [facility] Leukocyte esterase, ur Negative Negative [facility] UA reflex comment Reflex to microscopic UA will be performed. [facility] Urine, bladder 06/19/2024 9: 34 PM SUPPLY CHAIN LOGISTICS MANAGER 06/19/2024 10:05 PM SUPPLY CHAIN LOGISTICS MANAGER Patricia Bryant MD LAB MICROBIOLOGY - GENERAL ORD ERABLES Final Result [facility] [place] [address] * Urinalysis, microscopic only (06/19/2024 9:34 PM SUPPLY CHAIN LOGISTICS MANAGER) WBC, ur 0-5 0 - 5 /HPF RBC, ur 0-2 0 - 2 /HPF [facility] Epithelial cells, squamous, ur 1-5 0 - 5 /HPF [facility] Culture Reflex Comment Reflex conditions for urine culture (WBC >10) not met. [facility] Urine, bladder 06/19/2024 9: 34 PM SUPPLY CHAIN LOGISTICS MANAGER 06/19/2024 10:05 PM SUPPLY CHAIN LOGISTICS MANAGER Patricia Bryant MD LAB URINE ORDERABLES Final Res ult Performing Organization Address [facility] de Phone Number [facility] Department [place] [address] * (ABNORMAL) Differential, auto (06/19/2024 9:28 PM SUPPLY CHAIN LOGISTICS MANAGER) Pathologist [facility] Neutrophil abs 6.0 1.5 - 6.5 K/cumm Imm gran abs 0.0 0.0 - 0.1 K/cumm [facility] Lymphocyte abs 0.7(L) 0.8 - 3.3 K/cumm [facility] Monocyte abs 0.2 0.2 - 0.8 K/cumm [facility] Eosinophil abs 0.2 0.0 - 0.5 K/cumm [facility] Basophil abs 0.0 0.0 - 0.1 K/cumm [facility] Neutrophil pct 84.1 % [facility] Comment: Interpretive Data Percent cell count reference ranges are not reported, since discordance with absolute values may lead to misinterpretation of CBC data. Current Interpretive Data was last revised on 2017. Imm gran pct 0.4 % [facility] Comment: Interpretive Data Percent cell count reference ranges are not reported, since discordance with absolute values may lead to misinterpretation of CBC data. Current Interpretive Data was last revised on 2017. Lymphocyte pct 10.1 % [facility] Comment: Interpretive Data Percent cell count reference ranges are not reported, since discordance with absolute values may lead to misinterpretation of CBC data. Current Interpretive Data was last revised on 2017. Monocyte pct 2.9 % [facility] Comment: Interpretive Data Percent cell count reference ranges are not reported, since discordance with absolute values may lead to misinterpretation of CBC data. Current Interpretive Data was last revised on 2017. Eosinophil pct 2.4 % [facility] Comment: Interpretive Data Percent cell count reference ranges are not reported, since discordance with absolute values may lead to misinterpretation of CBC data. Current Interpretive Data was last revised on 2017. Basophil pct 0.1 % [facility] Comment: Interpretive Data Percent cell count reference ranges are not reported, since discordance with absolute values may lead to misinterpretation of CBC data. Current Interpretive Data was last revised on 2017. Blood 06/19/2024 9:28 PM SUPPLY CHAIN LOGISTICS MANAGER 06/19/2024 10:38 PM SUPPLY CHAIN LOGISTICS MANAGER us Patricia Bryant MD LAB BLOOD ORDERABLES Final Res ult [facility] One [facility] [place] [address] * Lacosamide level (06/19/2024 9:28 PM SUPPLY CHAIN LOGISTICS MANAGER) Lacosamide 9.6 1.0 - 10.0 mcg/mL [facility] Comment: ADDITIONAL INFORMATION This test was developed and its performance characteristics determined by [facility] in a manner consistent with CLIA requirements. This test has not been cleared or approved by the U.S. Food and Drug Administration. Test Performed by: [facility] - [address] [address] [place] [place]: Marianela Odonnell Ph.D.; CLIA# [id number] Blood 06/19/2024 9:28 PM SUPPLY CHAIN LOGISTICS MANAGER 06/19/2024 11:01 PM SUPPLY CHAIN LOGISTICS MANAGER Narrative [facility] - 06/22/2024 10:25 AM SUPPLY CHAIN LOGISTICS MANAGER Please get level before lacosamide dose is given Patricia Bryant MD LAB BLOOD ORDERABLES Final Res ult Performing Organization Address City/[facility] Co de Phone Number [facility] [place] [address] [facility] * (ABNORMAL) CBC with auto differential (06/19/2024 9:28 PM SUPPLY CHAIN LOGISTICS MANAGER) [facility] WBC 7.1 3.8 - 9.9 K/cumm Hgb 12.5(L) 13.0 - 17.5 g/dL [facility] Hct 37.0(L) 38.9 - 50.3 % [facility] Plt 152 150 - 400 K/cumm [facility] MPV 12.6(H) 9.1 - 12.3 fL [facility] RBC 3.90(L) 4.30 - 5.80 M/cumm [facility] MCV 94.9 81.3 - 96.4 fL [facility] MCH 32.1 27.1 - 33.3 pg [facility] MCHC 33.8 32.3 - 35.7 g/dL [facility] RDW CV 13.4 11.1 - 14.9 % [facility] RDW SD 46.8 35.7 - 48.1 fL [facility] NRBC abs 0.00 0.00 - 0.01 K/cumm [facility] Blood 06/19/2024 9:28 PM SUPPLY CHAIN LOGISTICS MANAGER 06/19/2024 10:38 PM SUPPLY CHAIN LOGISTICS MANAGER Patricia Bryant MD LAB BLOOD ORDERABLES Final Res ult Performing Organization Address City/[facility]/ZIP Co de Phone Number [facility] [place] [address] * Valproic acid level, total (06/19/2024 9:28 PM SUPPLY CHAIN LOGISTICS MANAGER) [facility] Valproic Acid 76.0 50.0 - 100.0 mcg/mL Comment: Interpretive Data Therapeutic or toxic effects of anticonvulsant drugs may occur at different concentrations in different patients and the correlation between dose and clinical effect must be evaluated individually. Current interpretative data was last revised on 13. Blood 06/19/2024 9:28 PM SUPPLY CHAIN LOGISTICS MANAGER 06/19/2024 10:39 PM SUPPLY CHAIN LOGISTICS MANAGER Narrative [facility] - 06/19/2024 11:40 PM SUPPLY CHAIN LOGISTICS MANAGER Please get level before dose is given us Patricia Bryant MD LAB BLOOD ORDERABLES Final Res ult [facility] One [facility] [place] [address] * Respiratory pathogen panel Nasopharyngeal (06/19/2024 9:10 PM SUPPLY CHAIN LOGISTICS MANAGER) [facility] Influenza A RNA Not Detected Not Detected Influenza B RNA Not Detected Not Detected [facility] RSV RNA Not Detected Not Detected [facility] COVID-19 RNA Not Detected Not Detected [facility] Coronavirus 229E RNA Not Detected Not Detected [facility] Coronavirus HKU1 RNA Not Detected Not Detected [facility] Coronavirus NL63 RNA Not Detected Not Detected [facility] Coronavirus OC43 RNA Not Detected Not Detected [facility] Adenovirus DNA Not Detected Not Detected [facility] Metapneumovirus RNA Not Detected Not Detected [facility] Rhinovirus/Enterov irus RNA Not Detected Not Detected [facility] Parainfluenza 1 RNA Not Detected Not Detected [facility] Parainfluenza 2 RNA Not Detected Not Detected [facility] Parainfluenza 3 RNA Not Detected Not Detected [facility] Parainfluenza 4 RNA Not Detected Not Detected [facility] B. pertussis DNA Not Detected Not Detected [facility] B. parapertussis DNA Not Detected Not Detected [facility] C. pneumoniae DNA Not Detected Not Detected [facility] M. pneumoniae DNA Not Detected Not Detected [facility] Nasopharyngeal 06/19/2024 9: 10 PM SUPPLY CHAIN LOGISTICS MANAGER 06/19/2024 10:06 PM SUPPLY CHAIN LOGISTICS MANAGER Katey BARNES [facility] - 06/19/2024 11:35 PM SUPPLY CHAIN LOGISTICS MANAGER Is the Patient experiencing symptoms consistent with COVID?->Yes Surveillance testing for transplant patient?->No Interpretive Data The [employer] FilmArray Respiratory Panel (RP2.1) assay is a [...] assay has FDA clearance for testing of NASCAR RACER swabs. The performance of additional specimen types has been assessed by the performing laboratory. The performance characteristics of this assay have been determined by [facility] Molecular Infectious Disease Laboratory. Current interpretive data was last revised on 22. Patricia Bryant MD LAB MICROBIOLOGY - GENERAL ORD ERABLES Final Result Performing Organization Address City/[facility]/ZIP Co de Phone Number CAMERON HURTADO Calvin [facility] Department [place] [address] * (ABNORMAL) Aerobic culture and gram stain Tracheal aspirate Tracheal (06/19/2024 6:53 PM SUPPLY CHAIN LOGISTICS MANAGER) Direct Specimen Exam Stain: Abundant polymorphonuclear leukocytes seen. Few squamous epithelial cells seen. Moderate mixed bacterial domenico seen on Gram stain. Report Final Report: Greater than or equal to 100,000 colonies/ml of Staphylococcus aureus Methicillin resistant (MRSA) by penicillin binding protein 2a (PBP2a) testing. Plus growth of clinically insignificant bacterial domenico. (.) [facility] Organism STAPHYLOCOCCUS AUREUS [facility] Organism PLUS GROWTH OF CLINICALLY INSIGNIFICANT DOMENICO. [facility] Tracheal aspirate (Tracheal) 06/19/2024 6:53 PM SUPPLY CHAIN LOGISTICS MANAGER 06/19/2024 8:18 PM SUPPLY CHAIN LOGISTICS MANAGER Narrative [facility] - 06/27/2024 2:52 PM SUPPLY CHAIN LOGISTICS MANAGER Testing performed by [facility] Microbiology Laboratory ([phone]) Specimens submitted from normally sterile body sites [...] ORD ERABLES Final Result Performing Organization Address City/[facility]/ZIP Co de Phone Number CAMERON HURTADO [facility] Department [place] [address] * XR Chest 1 View (06/19/2024 6:47 PM SUPPLY CHAIN LOGISTICS MANAGER) Anatomical Region Laterality Modality Body, Chest N/A Digital Radiogra phy 06/20/2024 2:42 PM SUPPLY CHAIN LOGISTICS MANAGER Impressions 06/20/2024 3:15 PM SUPPLY CHAIN LOGISTICS MANAGER Comparison is made to 06/19/2024 at [...] Herve Payne M.D. Narrative 06/20/2024 3:15 PM SUPPLY CHAIN LOGISTICS MANAGER EXAMINATION: 1 view chest radiograph Procedure [...] pathogen panel Tracheal aspirate (06/19/2024 6:46 PM SUPPLY CHAIN LOGISTICS MANAGER) Influenza A RNA Not Detected Not Detected Influenza B RNA Not Detected Not Detected [facility] RSV RNA Not Detected Not Detected [facility] COVID-19 RNA Not Detected Not Detected [facility] Coronavirus 229E RNA Not Detected Not Detected [facility] Coronavirus HKU1 RNA Not Detected Not Detected [facility] Coronavirus NL63 RNA Not Detected Not Detected [facility] Coronavirus OC43 RNA Not Detected Not Detected [facility] Adenovirus DNA Not Detected Not Detected [facility] Metapneumovirus RNA Not Detected Not Detected [facility] Rhinovirus/Enterov irus RNA Not Detected Not Detected [facility] Parainfluenza 1 RNA Not Detected Not Detected [facility] Parainfluenza 2 RNA Not Detected Not Detected [facility] Parainfluenza 3 RNA Not Detected Not Detected [facility] Parainfluenza 4 RNA Not Detected Not Detected [facility] B. pertussis DNA Not Detected Not Detected [facility] B. parapertussis DNA Not Detected Not Detected [facility] C. pneumoniae DNA Not Detected Not Detected [facility] M. pneumoniae DNA Not Detected Not Detected [facility] Tracheal aspirate 06/19/2024 6:46 PM SUPPLY CHAIN LOGISTICS MANAGER 06/20/2024 7:55 AM SUPPLY CHAIN LOGISTICS MANAGER Narrative [facility] - 06/20/2024 8:58 AM SUPPLY CHAIN LOGISTICS MANAGER Is the Patient experiencing symptoms consistent with COVID?->Yes Surveillance testing for transplant patient?->No Interpretive Data The [employer] FilmArray Respiratory Panel (RP2.1) assay is a [...] assay has FDA clearance for testing of NASCAR RACER swabs. The performance of additional specimen types has been assessed by the performing laboratory. The performance characteristics of this assay have been determined by [facility] Molecular Infectious Disease Laboratory. Current interpretive data was last revised on 22. Patricia Bryant MD LAB MICROBIOLOGY - GENERAL ORD ERABLES Final Result [facility] One [facility] Department [place] [address] * XR Abdomen Ap 1 Vw (06/19/2024 4:09 PM SUPPLY CHAIN LOGISTICS MANAGER) Anatomical Region Laterality Modality Body, Abdomen N/A Digital Radiogra phy 06/19/2024 4:35 PM SUPPLY CHAIN LOGISTICS MANAGER Impressions 06/19/2024 5:03 PM SUPPLY CHAIN LOGISTICS MANAGER Diffuse mild gaseous bowel distention, similar to the prior exam and could represent ileus. Partially imaged gastrostomy tube. Dictated by: Hunter Hernandez M.D. ([place]an) The radiology attending physician has personally reviewed this study, and had reviewed and/or edited this written report and agrees with it. Electronically signed by: Lupillo Lugo M.D. Narrative 06/19/2024 5:03 PM SUPPLY CHAIN LOGISTICS MANAGER EXAMINATION: Abdomen, one view. HISTORY: Abdominal [...] XR Chest 1 View (06/19/2024 4:08 PM SUPPLY CHAIN LOGISTICS MANAGER) Anatomical Region Laterality Modality Body, Chest N/A Digital Radiogra phy 06/19/2024 4:21 PM SUPPLY CHAIN LOGISTICS MANAGER Impressions 06/19/2024 4:21 PM SUPPLY CHAIN LOGISTICS MANAGER The current study is compared with [...] Elif Patel M.D. Narrative 06/19/2024 4:21 PM SUPPLY CHAIN LOGISTICS MANAGER EXAMINATION: 1 view chest radiograph Procedure [...] Final Result * eGFR (06/19/2024 2:47 PM SUPPLY CHAIN LOGISTICS MANAGER) Pathologist [facility] eGFR >90 >=60 mL/min/1. 73 [...] last reviewed 2021. Blood 06/19/2024 2:47 PM SUPPLY CHAIN LOGISTICS MANAGER 06/19/2024 3:03 PM SUPPLY CHAIN LOGISTICS MANAGER Patricia Bryant MD LAB BLOOD ORDERABLES Final Res ult [facility] One [facility] Department [place] [address] * Differential, auto (06/19/2024 2:47 PM SUPPLY CHAIN LOGISTICS MANAGER) Pathologist [facility] Neutrophil abs 5.5 1.5 - 6.5 K/cumm Imm gran abs 0.0 0.0 - 0.1 K/cumm [facility] Lymphocyte abs 0.9 0.8 - 3.3 K/cumm [facility] Monocyte abs 0.2 0.2 - 0.8 K/cumm [facility] Eosinophil abs 0.3 0.0 - 0.5 K/cumm [facility] Basophil abs 0.0 0.0 - 0.1 K/cumm [facility] Neutrophil pct 79.8 % [facility] Comment: Interpretive Data Percent cell count reference ranges are not reported, since discordance with absolute values may lead to misinterpretation of CBC data. Current Interpretive Data was last revised on 2017. Imm gran pct 0.4 % [facility] Comment: Interpretive Data Percent cell count reference ranges are not reported, since discordance with absolute values may lead to misinterpretation of CBC data. Current Interpretive Data was last revised on 2017. Lymphocyte pct 13.4 % [facility] Comment: Interpretive Data Percent cell count reference ranges are not reported, since discordance with absolute values may lead to misinterpretation of CBC data. Current Interpretive Data was last revised on 2017. Monocyte pct 2.5 % [facility] Comment: Interpretive Data Percent cell count reference ranges are not reported, since discordance with absolute values may lead to misinterpretation of CBC data. Current Interpretive Data was last revised on 2017. Eosinophil pct 3.8 % [facility] Comment: Interpretive Data Percent cell count reference ranges are not reported, since discordance with absolute values may lead to misinterpretation of CBC data. Current Interpretive Data was last revised on 2017. Basophil pct 0.1 % [facility] Comment: Interpretive Data Percent cell count reference ranges are not reported, since discordance with absolute values may lead to misinterpretation of CBC data. Current Interpretive Data was last revised on 2017. Blood 06/19/2024 2:47 PM SUPPLY CHAIN LOGISTICS MANAGER 06/19/2024 3:04 PM SUPPLY CHAIN LOGISTICS MANAGER us Patricia Bryant MD LAB BLOOD ORDERABLES Final Res ult [facility] One [facility] Department of Laboratories [place], [place] [id number] * (ABNORMAL) CBC with auto differential (06/19/2024 2:47 PM SUPPLY CHAIN LOGISTICS MANAGER) WBC 6.9 3.8 - 9.9 K/cumm Hgb 14.2 13.0 - 17.5 g/dL [facility] Hct 42.4 38.9 - 50.3 % [facility] Plt 135(L) 150 - 400 K/cumm [facility] MPV 12.6(H) 9.1 - 12.3 fL [facility] RBC 4.47 4.30 - 5.80 M/cumm [facility] MCV 94.9 81.3 - 96.4 fL [facility] MCH 31.8 27.1 - 33.3 pg [facility] MCHC 33.5 32.3 - 35.7 g/dL [facility] RDW CV 13.2 11.1 - 14.9 % [facility] RDW SD 46.5 35.7 - 48.1 fL [facility] NRBC abs 0.00 0.00 - 0.01 K/cumm [facility] Blood 06/19/2024 2:47 PM SUPPLY CHAIN LOGISTICS MANAGER 06/19/2024 3:04 PM SUPPLY CHAIN LOGISTICS MANAGER Patricia Bryant MD LAB BLOOD ORDERABLES Final Res ult Performing Organization Address City/[facility]/ZIP Co de Phone Number [facility] Department [place] [address] * (ABNORMAL) Phosphorus (06/19/2024 2:47 PM SUPPLY CHAIN LOGISTICS MANAGER) Phosphorus, pl 2.2(L) 2.3 - 4.5 mg/dL Blood 06/19/2024 2:47 PM SUPPLY CHAIN LOGISTICS MANAGER 06/19/2024 3:03 PM SUPPLY CHAIN LOGISTICS MANAGER Patricia Bryant MD LAB BLOOD ORDERABLES Final Res ult [facility] Department [place] [address] * Magnesium (06/19/2024 2:47 PM SUPPLY CHAIN LOGISTICS MANAGER) Pathologist [facility] Magnesium 2.0 1.4 - 2.5 mg/dL Blood 06/19/2024 2:47 PM SUPPLY CHAIN LOGISTICS MANAGER 06/19/2024 3:03 PM SUPPLY CHAIN LOGISTICS MANAGER us Patricia Bryant MD LAB BLOOD ORDERABLES Final Res ult [facility] One [facility] [place] [address] * (ABNORMAL) Comprehensive metabolic panel (06/19/2024 2:47 PM SUPPLY CHAIN LOGISTICS MANAGER) Sodium 144 135 - 145 mmol/L Potassium, pl 3.9 3.3 - 4.9 mmol/L [facility] Comment:Hemolyzed; Potassium value may be falsely elevated by as much as 0.3-0.5 mmol/L. Suggest redraw and reanalysis. Chloride 105 97 - 110 mmol/L [facility] CO2 29 22 - 32 mmol/L [facility] Anion gap 10 2 - 15 mmol/L [facility] BUN 7 6 - 25 mg/dL [facility] Creatinine 0.62(L) 0.80 - 1.30 mg/dL [facility] Glucose 113 70 - 199 mg/dL [facility] Comment: Interpretive Data Fasting glucose [...] Calcium 9.5 8.5 - 10.3 mg/dL [facility] Bilirubin, total 0.2 0.1 - 1.2 mg/dL [facility] Protein, pl 7.2 6.5 - 8.5 g/dL [facility] Albumin 3.7 3.5 - 5.0 g/dL [facility] Alk phos 91 40 - 130 Units/L [facility] ALT 13 7 - 55 Units/L [facility] AST 28 10 - 50 Units/L [facility] Comment:Hemolyzed; result ma y be falsely elevated Blood 06/19/2024 2:47 PM SUPPLY CHAIN LOGISTICS MANAGER 06/19/2024 3:03 PM SUPPLY CHAIN LOGISTICS MANAGER Patricia Bryant MD LAB BLOOD ORDERABLES Final Res ult Performing Organization Address City/[facility]/ZIP Co de Phone Number [facility] [place] [address] * POCT glucose (06/19/2024 2:25 PM SUPPLY CHAIN LOGISTICS MANAGER) Glucose, POC 125 70 - 199 mg/dL Blood 06/19/2024 2:25 PM SUPPLY CHAIN LOGISTICS MANAGER 06/19/2024 2:25 PM SUPPLY CHAIN LOGISTICS MANAGER Result [facility] Patricia Bryant MD LAB POCT ORDERABLES - DEVICE F inal Result Performing Organization Address [facility] Co de Phone Number [facility] [place] [address] * TNI with LIPID PANEL (08/24/2017 4:57 [...] Cholesterol/HDL Ratio 1.8 08/24/2017 5:30 PM CDT [facility] [employer] HISTORICAL RESULTS Comment: Cholesterol / HDL Ratio 3.5:1 or less is desirable. Cholesterol / HDL Ratio greater than 5:1 is considered higher risk for developing heart disease. 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 Source: [facility] Banyan. 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 Source: [facility] Banyan. 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 [place] [address] PCP - General Family Practice 07/08/24
--- OUTSIDE RECORDS SUMMARY | 2024-09-16 22:14 | XMS_ITS | Encounter Summary ---
Author Organization [facility] Address [address] [place] [address] Care Team Providers Care Mailroom Supervisor Name Role Phone Frank Toure MD Unavailable Misael Maradiaga DO Primary Care Provider [phone] Joyce Luevano NP Primary Care Provider Unavaila Marielena Adame MD Primary Care Provider [phone] Encounter Details Date Type Department Care Team (Late st Contact Info) Description 12/14/2018 Hospital Follow-up Call [facility] [place] [address] Cony Adan RN Social History Tobacco Use [...] on filedocumented in this encounter Care Teams Mailroom Supervisor Relationship Specialty Start Date End Date Misael Maradiaga DO [address] [place] [address] PCP - General FAMILY PRACTICE 09/28/18 01/13/20 Joyce Luevano NP [address] [place] [address] PCP - General NURSE PRACTITIONER 01/14/20 10/26/23 Marielena Smallwood MD [address] [place] [id number] PCP - General FAMILY PRACTICE 10/27/23 Frank Toure MD [address] [place] [address] [employer] Director CARDIOVASCULAR DISEASE 05/30/16 documented as of this encounter
--- OUTSIDE RECORDS SUMMARY | 2024-09-16 22:14 | XMS_ITS | Referral Summary ---
Author Organization [facility] Address [address] [place] [address] Care Team Providers Care Milk Collector Name Role Phone Marielena Smallwood MD Primary Care Provider Encounters Date Type Department Care Team Description 07/09/2024 7:23 PM LARYNGOLOGIST - 07/09/2024 11:59 PM LARYNGOLOGIST Hospital Encounter AMBULANCE BILLING [address] [place] [address] Discharge Disposition: Discharge to home or self care 07/08/2024 7:52 PM LARYNGOLOGIST - 07/09/2024 7:48 AM LARYNGOLOGIST Emergency [facility] Emergency Department [address] [place] [phone] Tri Martinez MD Thomas, Cherie Edwards MD Tracheostomy complication, unspecified complication type (HCC) (Primary Dx); Balanitis Discharge Disposition: Discharge to home or self care 06/12/2024 10:26 AM LARYNGOLOGIST - 06/28/2024 5:25 PM LARYNGOLOGIST Hospital Encounter [address] [phone] Shakila Jung MD Choi, Cheuk Ho Jeffrey, [...] 06/28/19 Active cloBAZam (ONFI) 2.5 mg/mL suspensionIndicati ons:[place]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 Monitor with q4 accuchecks and SSI. Hypophosphatemia 06/27/2024 Assessment & Plan (06/28/2024 11:44 AM LARYNGOLOGIST): <0.7 ? 2/2 refeeding syndrome. Started on neutraphos 2pkg QID 06/26. Still Phos<0.7 06/27. Tx with IV NaPhos 30mmoles and cont per tube replacement and monitor closely. -06/28: Phos=3.3, reduce nuetraphos to 1 PKG BID and monitor History of DVT (deep vein thrombosis) 06/26/2024 Assessment & Plan (06/26/2024 1:32 PM LARYNGOLOGIST): -On anticoagulation with Eliquis 5 mg po BID for hx of DVT -per chart review hx of Left Subclavian vein DVT diagnosed 08/01/23 H/O: GI bleed 06/25/2024 Assessment & Plan (06/26/2024 1:32 PM LARYNGOLOGIST): - [facility] ( [facility]-07-24 [...] 06/25/2024 Assessment & Plan (06/26/2024 1:36 PM LARYNGOLOGIST): Tracheostomy dependence, has a Shiley #4 cuffed. Pt followed at [facility], per notes trach in place for pulmonary toilet due to his copious secretions and ongoing aspiration of his secretions. -needing frequent suctioning -sats stable on 28% FIO2 by HHTC -Was getting VEST at [facility] Low grade fever 06/20/2024 Assessment & Plan (06/26/2024 1:34 PM LARYNGOLOGIST): Low-grade fever and tachycardia, softer BP after [...] 06/17/2024 Assessment & Plan (06/28/2024 11:43 AM LARYNGOLOGIST): -patient at admission with a G tube, was getting continous tube feedings at [facility] and not tolerating, -was changed [...] (additional documented GJ tube procedures at [facility] most recent 09/09/23). Pt ' feeding tube fell off and pt had 18 Serbian G tube placed at [facility] ED on 04/21/24 (records on care everywhere)and after that he has not tolerated well tube feedings per discussion with his sister Ms Hilliard,Adriane [phone] POA - consulted IR 06-20-24 for conversion [...] goal 06/25, adjust FWF per hydration status, professional fee coder to follow up -On full TF's-osmolite 1.5. Phos repleted. Copious oral secretions 06/13/2024 Assessment & Plan (06/26/2024 1:29 PM LARYNGOLOGIST): Patient on chronic glycopyrrolate due to secretions, held at admission 07/01 to potential for constipation with plan to add back when he's had a bowel movements -resume on 06-19- hold on 06-20 due to somnolence. Suction PRN - restart glycopyrrolate 1mg BID 06/26 and monitor Abdominal pain 06/12/2024 Assessment & Plan (06/26/2024 1:23 PM LARYNGOLOGIST): -p/w abdominal distention from SNF to ED on 06-12 ,reported biliary emesis per fpc (approximately 300 cc) , not associated fevers or change in bowel habits. Feeding tube placed to gravity drainage in ED H&P notes regular bowel movements. CT scan on 06-12 in ED with stool in the rectum and sigmoid. [place] likely constipation contributing to the patient's abdominal [...] 06/12/2024 Assessment & Plan (06/26/2024 12:08 AM LARYNGOLOGIST): Complicated by left LE AKA. History of CVA (cerebrovascular accident) 2020 Assessment & Plan (06/26/2024 1:32 PM LARYNGOLOGIST): - hx of RT parietal CVA- hx of dementia Cont asa and statin Essential hypertension 12/11/2020 Assessment & Plan (06/26/2024 1:30 PM LARYNGOLOGIST): - on metoprolol and norvasc, held with soft BP 06-19 - resume metoprolol 06-21 -resume amlodipine 06-22 - Monitor Hyperlipidemia 12/11/2020 Assessment & Plan (06/12/2024 3:47 PM LARYNGOLOGIST): - Continue home statin Seizure 12/10/2020 Assessment & Plan (06/26/2024 1:36 PM LARYNGOLOGIST): History of seizure disorder secondary to traumatic brain injury. Currently on valproate, Vimpat, Keppra and Cobazam - Continue home medication, valproate level low at admit 48 on 06-12, 48 on 06-13, Valproic acid level 76 06-19 prior to dose, lacosamide level 1.4 on 06/12, 9.6 on 06-19 Followed by Neurology at [facility] Cognitive communication deficit 08/25/2020 Cerebrovascular [...] Smokeless Tobacco: Current Tobacco Cessation:Counseling Given: Yes [facility] Utilities Answer Date Recorded In the past 12 months has [employer] electric, gas, oil, or water company threatened [...] often do you attend chur ch or judaism services? Never 06/18/2024 Do you belong to any clubs o r organizations such as sabianist groups, unions, fraternal or athletic groups, or [...] any time in the past 12 [facility], were you homeless or living in a nursing home (including now)? No 06/18/2024 Personal Safety Answer Date Recorded Have you ever been in or are you currently in a harmful physical or emotional relationship or is someone making you feel afraid or unsafe? Denies 07/08/2024 Sex and Gender Information Value Date Recorded Sex Assigned at Not on file Legal Sex Male 6:11 AM LARYNGOLOGIST Gender Identity Not on file Sexual Orientation Not on file Last Filed Vital Signs Vital Sign Reading Time Taken Comments Blood Pressure 145/83 07/09/2024 6:00 AM LARYNGOLOGIST Pulse 91 07/09/2024 6:00 AM LARYNGOLOGIST Temperature 36.5 C (97.7 F) 07/09/2024 6:31 AM LARYNGOLOGIST Respiratory Rate 10 07/09/2024 6:00 AM LARYNGOLOGIST Oxygen Saturation 100% 07/09/2024 6:00 AM LARYNGOLOGIST Inhaled Oxygen Concentration - - Weight 79.8 kg (176 lb) 07/09/2024 2:16 AM LARYNGOLOGIST Height 182.9 cm (6') 07/09/2024 2:16 AM LARYNGOLOGIST Body Mass Index 23.87 07/09/2024 2:16 AM LARYNGOLOGIST Plan of Treatment Not on file Procedures Procedure Name Priority Date/Time Associated Diagnosis Comments POCT RAPID HIV ANTIBODY COMMUNITY SCREENING-ISSA ELIGIBLE STAT 07/09/2024 5:32 AM LARYNGOLOGIST SEPSIS LACTATE WITH REFLEX Timed 07/09/2024 4:33 AM LARYNGOLOGIST ED PERIPHERAL LINE INSERTION Routine 07/09/2024 1:18 AM LARYNGOLOGIST SEPSIS LACTATE WITH REFLEX Timed 07/09/2024 1:15 AM LARYNGOLOGIST RPR STAT 07/09/2024 1:15 AM LARYNGOLOGIST N. GONORRHOEAE/C. TRACHOMATIS AMPLIFICATION STAT 07/09/2024 1:02 AM LARYNGOLOGIST URINALYSIS AND REFLEX TO MICROSCOPIC AND CULTURE STAT 07/09/2024 1:02 AM LARYNGOLOGIST ED PERIPHERAL LINE INSERTION Routine 07/08/2024 10:[address] CHEST ABDOMEN PELVIS W CONTRAST ED 07/08/2024 9:55 PM LARYNGOLOGIST EGFR STAT 07/08/2024 8:56 PM LARYNGOLOGIST DIFFERENTIAL AUTO STAT 07/08/2024 8:5 6 PM LARYNGOLOGIST SEPSIS LACTATE WITH REFLEX STAT 07/08/2024 8:56 PM LARYNGOLOGIST LIPASE STAT 07/08/2024 8:56 PM LARYNGOLOGIST COMPREHENSIVE METABOLIC PANEL STAT 07/08/2024 8:56 PM LARYNGOLOGIST CBC WITH AUTO DIFFERENTIAL STAT 07/08/2024 8:56 PM LARYNGOLOGIST RESPIRATORY PATHOGEN PANEL STAT 07/08/2024 8:56 PM LARYNGOLOGIST ECG 12-LEAD Routine 07/08/2024 8:28 PM LARYNGOLOGIST XR CHEST 1 VIEW ED 07/08/2024 8:18 PM LARYNGOLOGIST POCT GLUCOSE DEVICE Routine 06/28/2024 4 :24 PM LARYNGOLOGIST POCT GLUCOSE DEVICE Routine 06/28/2024 1 2:30 PM LARYNGOLOGIST POCT GLUCOSE DEVICE Routine 06/28/2024 7 :43 AM LARYNGOLOGIST POCT GLUCOSE DEVICE Routine 06/28/2024 4 :01 AM LARYNGOLOGIST POCT GLUCOSE DEVICE Routine 06/27/2024 1 1:28 PM LARYNGOLOGIST EGFR Routine 06/27/2024 9:30 PM LARYNGOLOGIST PHOSPHORUS Routine 06/27/2024 9:30 PM LARYNGOLOGIST MAGNESIUM Routine 06/27/2024 9:30 PM LARYNGOLOGIST BASIC METABOLIC PANEL Routine 06/27/2024 9:30 PM LARYNGOLOGIST POCT GLUCOSE DEVICE Routine 06/27/2024 8 :39 PM LARYNGOLOGIST POCT GLUCOSE DEVICE Routine 06/27/2024 5 :10 PM LARYNGOLOGIST POCT GLUCOSE DEVICE Routine 06/27/2024 4 :27 PM LARYNGOLOGIST POCT GLUCOSE DEVICE Routine 06/27/2024 1 :06 PM LARYNGOLOGIST POCT GLUCOSE DEVICE Routine 06/27/2024 9 :59 AM LARYNGOLOGIST EGFR Routine 06/26/2024 10:21 PM LARYNGOLOGIST DIFFERENTIAL AUTO Routine 06/26/2024 10: 21 PM LARYNGOLOGIST PHOSPHORUS Routine 06/26/2024 10:21 PM LARYNGOLOGIST MAGNESIUM Routine 06/26/2024 10:21 PM LARYNGOLOGIST CBC WITH AUTO DIFFERENTIAL Routine 06/26/2024 10:21 PM LARYNGOLOGIST BASIC METABOLIC PANEL Routine 06/26/2024 10:21 PM LARYNGOLOGIST HEPATITIS B SURFACE ANTIGEN Routine 06/26/2024 10:21 PM LARYNGOLOGIST PHOSPHORUS Routine 06/26/2024 3:21 PM LARYNGOLOGIST RPR Routine 06/26/2024 3:21 PM LARYNGOLOGIST HEPATITIS C ANTIBODY Routine 06/26/2024 3:21 PM LARYNGOLOGIST HIV 1/2 ANTIBODY PLUS P24 ANTIGEN Routine 06/26/2024 3:21 PM LARYNGOLOGIST EGFR Routine 06/26/2024 12:16 AM LARYNGOLOGIST PHOSPHORUS Routine 06/26/2024 12:16 AM LARYNGOLOGIST MAGNESIUM Routine 06/26/2024 12:16 AM LARYNGOLOGIST BASIC METABOLIC PANEL Routine 06/26/2024 12:16 AM LARYNGOLOGIST POCT GLUCOSE DEVICE Routine 06/23/2024 1 1:36 AM LARYNGOLOGIST CBC WITHOUT DIFFERENTIAL Timed 06/23/2024 9:07 AM LARYNGOLOGIST VANCOMYCIN LEVEL TROUGH Routine 06/23/2024 9:00 AM LARYNGOLOGIST EGFR Routine 06/23/2024 9:00 AM LARYNGOLOGIST MAGNESIUM Routine 06/23/2024 9:00 AM LARYNGOLOGIST PHOSPHORUS Routine 06/23/2024 9:00 AM LARYNGOLOGIST BASIC METABOLIC PANEL Routine 06/23/2024 9:00 AM LARYNGOLOGIST G TO GJ-TUBE REPLACEMENT IP Routine 06/22/2024 1:24 PM LARYNGOLOGIST C. DIFFICILE TESTING Routine 06/21/2024 11:11 AM LARYNGOLOGIST INFECTION PREVENTION VRE CULTURE Routine 06/21/2024 11:10 AM LARYNGOLOGIST VANCOMYCIN LEVEL TROUGH Timed 06/21/2024 7:16 AM LARYNGOLOGIST EGFR Routine 06/21/2024 5:03 AM LARYNGOLOGIST DIFFERENTIAL AUTO Routine 06/21/2024 5:0 3 AM LARYNGOLOGIST PHOSPHORUS Timed 06/21/2024 5:03 AM LARYNGOLOGIST MAGNESIUM Routine 06/21/2024 5:03 AM LARYNGOLOGIST COMPREHENSIVE METABOLIC PANEL Routine 06/21/2024 5:03 AM LARYNGOLOGIST CBC WITH AUTO DIFFERENTIAL Routine 06/21/2024 5:03 AM LARYNGOLOGIST MSSA/MRSA (STAPHYLOCOCCUS AUREUS) CULTURE Routine 06/20/2024 10:30 PM LARYNGOLOGIST XR ABDOMEN AP 1 VIEW IP Routine 06/20/2024 10:29 AM LARYNGOLOGIST URINALYSIS, MICROSCOPIC ONLY Routine 06/19/2024 9:34 PM LARYNGOLOGIST URINALYSIS AND REFLEX TO MICROSCOPIC AND CULTURE Routine 06/19/2024 9:34 PM LARYNGOLOGIST DIFFERENTIAL AUTO Routine 06/19/2024 9:2 8 PM LARYNGOLOGIST CBC WITH AUTO DIFFERENTIAL Routine 06/19/2024 9:28 PM LARYNGOLOGIST VALPROIC ACID LEVEL, TOTAL Timed 06/19/2024 9:28 PM LARYNGOLOGIST LACOSAMIDE Routine 06/19/2024 9:28 PM LARYNGOLOGIST RESPIRATORY PATHOGEN PANEL Routine 06/19/2024 9:10 PM LARYNGOLOGIST AEROBIC CULTURE AND GRAM STAIN Routine 06/19/2024 6:53 PM LARYNGOLOGIST XR CHEST 1 VIEW IP Routine 06/19/2024 6:47 PM LARYNGOLOGIST RESPIRATORY PATHOGEN PANEL Routine 06/19/2024 6:46 PM LARYNGOLOGIST XR ABDOMEN AP 1 VIEW IP Routine 06/19/2024 4:09 PM LARYNGOLOGIST XR CHEST 1 VIEW IP Routine 06/19/2024 4:08 PM LARYNGOLOGIST EGFR Timed 06/19/2024 2:47 PM LARYNGOLOGIST DIFFERENTIAL AUTO Timed 06/19/2024 2:4 7 PM LARYNGOLOGIST PHOSPHORUS Timed 06/19/2024 2:47 PM LARYNGOLOGIST MAGNESIUM Timed 06/19/2024 2:47 PM LARYNGOLOGIST COMPREHENSIVE METABOLIC PANEL Timed 06/19/2024 2:47 PM LARYNGOLOGIST CBC WITH AUTO DIFFERENTIAL Timed 06/19/2024 2:47 PM LARYNGOLOGIST POCT GLUCOSE DEVICE Routine 06/19/2024 2 :25 PM LARYNGOLOGIST HEMOGLOBIN A1C Routine 06/12/2024 3:30 PM LARYNGOLOGIST TNI WITH LIPID PANEL Routine 08/24/2017 4:57 PM CDT from Last 3 Months or Most Recently Relevant to Health Maintenance Results * POCT Rapid HIV Antibody Community Screening-Issa Eligible (07/09/2024 5:32 AM LARYNGOLOGIST) [facility] Rapid HIV, POC Negative Negative Lot Number [id number] QC Control Line Acceptable Blood 07/09/2024 5:32 AM LARYNGOLOGIST Naa Tam MD POINT OF CARE TEST ORDER NICHOLE Final Result * Sepsis Lactate w/ Reflex (07/09/2024 4:33 AM LARYNGOLOGIST) Sepsis Lactate 2.0 0.7 - 2.0 mmol/L Blood 07/09/2024 4:33 AM LARYNGOLOGIST 07/09/2024 4:42 AM LARYNGOLOGIST Naa Tam MD LAB BLOOD ORDERABLES Fin al Result [facility] Department [place] [address] * ED PERIPHERAL LINE INSERTION (07/09/2024 1:18 AM LARYNGOLOGIST) Narrative Cherie Damian MD - 07/09/2024 1:18 AM LARYNGOLOGIST Atul Barba MD 07/09/2024 1:18 AM Peripheral [...] Sepsis Lactate w/ Reflex (07/09/2024 1:15 AM LARYNGOLOGIST) Sepsis Lactate 2.8(H) 0.7 - 2.0 mmol/L Blood 07/09/2024 1:15 AM LARYNGOLOGIST 07/09/2024 1:46 AM LARYNGOLOGIST Naa Tam MD LAB BLOOD ORDERABLES Fin al Result Performing Organization Address [facility] Co de Phone Number [facility] [place] [address] * RPR Blood (07/09/2024 1:15 AM LARYNGOLOGIST) RPR Nonreactive Nonreactive Blood 07/09/2024 1:15 AM LARYNGOLOGIST 07/09/2024 1:40 AM LARYNGOLOGIST Naa Tam MD LAB MICROBIOLOGY - GENER AL ORDERABLES Final Result Performing Organization Address [facility] de Phone Number [facility] [place] [address] * N. gonorrhoeae/C. trachomatis Amplification Urine (07/09/2024 1:02 AM LARYNGOLOGIST) C. trachomatis Not Detected Not Detected [facility] N. gonorrhoeae Not Detected Not Detected [facility] Comment: Interpretive Data This assay detects Chlamydia trachomatis and Neisseria gonorrhoeae by nucleic acid amplification testing (NAAT). This assay has been cleared by the [place] Food and Drug administration. The performance characteristics of this test have been verified by the [facility] Molecular Infectious Disease laboratory. The performance characteristics of this test have not been evaluated in individuals less than 14 years of age. Current Interpretive Data last revised 2023. Urine (None) 07/09/2024 1:02 AM LARYNGOLOGIST 07/09/2024 1:35 AM LARYNGOLOGIST us Naa Tam MD LAB MICROBIOLOGY - GENER AL ORDERABLES Final Result Performing Organization Address [facility] [place] [address] [facility] * (ABNORMAL) Urinalysis reflex to microscopic and culture Urine, clean voided (07/09/2024 1:02 AM LARYNGOLOGIST) Color, ur Straw Yellow Clarity, ur Clear Clear [facility] Specific gravity, ur >1.042(H) 1.003 - 1.030 [facility] pH, urine 7.5 [facility] Comment: Interpretive Data U rine pH is affected by diet, medications, systemic acid-base disturbances, and renal tubular function. pH may affect urinary stone formation. For example, urine pH below 6.0 may help reduce the tendency for calcium phosphate stones and pH greater than 6.0 may reduce the tendency for uric acid stone formation. Source: [facility] Current Interpretive Data was last revised on 2017 Protein, ur ql Trace Negative [facility] Glucose, ur ql Negative Negative [facility] Ketones, ur Negative Negative [facility] Bilirubin, ur Negative Negative [facility] Blood, ur Negative Negative [facility] Urobilinogen, ur <2.0 <2.0 mg/dL [facility] Nitrite, ur Negative Negative [facility] Leukocyte esterase, ur Negative Negative [facility] UA reflex comment Reflex conditions for microscopic UA and culture not met. [facility] Urine, clean voided 07/09/2024 1:02 AM LARYNGOLOGIST 07/09/2024 1:15 AM LARYNGOLOGIST Naa Tam MD LAB MICROBIOLOGY - [facility] ORDERABLES Final Result [facility] Department [place] [address] * ED PERIPHERAL LINE INSERTION (07/08/2024 10:11 PM LARYNGOLOGIST) Narrative Tri Martinez MD - 07/08/2024 10:11 PM LARYNGOLOGIST Atul Barba MD 07/08/2024 10:12 PM Peripheral [...] Abdomen Pelvis W Contrast (07/08/2024 9:55 PM LARYNGOLOGIST) Anatomical Region Laterality Modality Body N/A Computed Tomogra phy 07/08/2024 10:3 2 PM LARYNGOLOGIST Impressions 07/09/2024 7:23 AM LARYNGOLOGIST Liquid stool within the colon, indicative of diarrheal state. Otherwise, no acute abnormalities in the abdomen or pelvis. Dictated by: Delia Morton MD The radiology attending physician has personally reviewed this study, and had reviewed and/or edited this written report and agrees with it. Electronically signed by: Marlon Kohler M.D. Narrative 07/09/2024 7:23 AM LARYNGOLOGIST EXAMINATION: Computed tomography of the chest, abdomen [...] Sepsis Lactate w/ Reflex (07/08/2024 8:56 PM LARYNGOLOGIST) Sepsis Lactate 2.4(H) 0.7 - 2.0 mmol/L Blood 07/08/2024 8:56 PM LARYNGOLOGIST 07/08/2024 9:24 PM LARYNGOLOGIST us Naa Tam MD LAB BLOOD ORDERABLES Fin al Result [facility] Department [place] [address] * eGFR (07/08/2024 8:56 PM LARYNGOLOGIST) eGFR >90 >=60 mL/min/1. 73 m2 Comment: [...] last reviewed 2021. Blood 07/08/2024 8:56 PM LARYNGOLOGIST 07/08/2024 9:26 PM LARYNGOLOGIST us Naa Tam MD LAB BLOOD ORDERABLES Fin al Result [facility] Department [place] [address] * Differential, auto (07/08/2024 8:56 PM LARYNGOLOGIST) Neutrophil abs 4.4 1.5 - 6.5 K/cumm Imm gran abs 0.0 0.0 - 0.1 K/cumm [facility] Lymphocyte abs 2.6 0.8 - 3.3 K/cumm [facility] Monocyte abs 0.5 0.2 - 0.8 K/cumm [facility] Eosinophil abs 0.5 0.0 - 0.5 K/cumm [facility] Basophil abs 0.0 0.0 - 0.1 K/cumm [facility] Neutrophil pct 54.7 % [facility] Comment: Interpretive Data Percent cell count reference ranges are not reported, since discordance with absolute values may lead to misinterpretation of CBC data. Current Interpretive Data was last revised on 2017. Imm gran pct 0.2 % [facility] Comment: Interpretive Data Percent cell count reference ranges are not reported, since discordance with absolute values may lead to misinterpretation of CBC data. Current Interpretive Data was last revised on 2017. Lymphocyte pct 32.1 % [facility] Comment: Interpretive Data Percent cell count reference ranges are not reported, since discordance with absolute values may lead to misinterpretation of CBC data. Current Interpretive Data was last revised on 2017. Monocyte pct 6.6 % [facility] Comment: Interpretive Data Percent cell count reference ranges are not reported, since discordance with absolute values may lead to misinterpretation of CBC data. Current Interpretive Data was last revised on 2017. Eosinophil pct 6.0 % [facility] Comment: Interpretive Data Percent cell count reference ranges are not reported, since discordance with absolute values may lead to misinterpretation of CBC data. Current Interpretive Data was last revised on 2017. Basophil pct 0.4 % [facility] Comment: Interpretive Data Percent cell count reference ranges are not reported, since discordance with absolute values may lead to misinterpretation of CBC data. Current Interpretive Data was last revised on 2017. Blood 07/08/2024 8:56 PM LARYNGOLOGIST 07/08/2024 9:27 PM LARYNGOLOGIST us Naa Tam MD LAB BLOOD ORDERABLES Fin al Result [facility] Department [place] [address] * Respiratory pathogen panel Nasopharyngeal (07/08/2024 8:56 PM LARYNGOLOGIST) Pathologist [facility] Influenza A RNA Not Detected Not Detected Influenza B RNA Not Detected Not Detected [facility] RSV RNA Not Detected Not Detected [facility] COVID-19 RNA Not Detected Not Detected [facility] Coronavirus 229E RNA Not Detected Not Detected [facility] Coronavirus HKU1 RNA Not Detected Not Detected [facility] Coronavirus NL63 RNA Not Detected Not Detected [facility] Coronavirus OC43 RNA Not Detected Not Detected [facility] Adenovirus DNA Not Detected Not Detected [facility] Metapneumovirus RNA Not Detected Not Detected [facility] Rhinovirus/Enterov irus RNA Not Detected Not Detected [facility] Parainfluenza 1 RNA Not Detected Not Detected [facility] Parainfluenza 2 RNA Not Detected Not Detected [facility] Parainfluenza 3 RNA Not Detected Not Detected [facility] Parainfluenza 4 RNA Not Detected Not Detected [facility] B. pertussis DNA Not Detected Not Detected [facility] B. parapertussis DNA Not Detected Not Detected [facility] C. pneumoniae DNA Not Detected Not Detected [facility] M. pneumoniae DNA Not Detected Not Detected [facility] Nasopharyngeal 07/08/2024 8: 56 PM LARYNGOLOGIST 07/08/2024 9:25 PM LARYNGOLOGIST Narrative [facility] - 07/08/2024 10:16 PM LARYNGOLOGIST Is the Patient experiencing symptoms consistent with COVID?->Yes Surveillance testing for transplant patient?->No Interpretive Data The [employer] FilmArray Respiratory Panel (RP2.1) assay is a [...] assay has FDA clearance for testing of PHYSICAL TESTING SUPERVISOR swabs. The performance of additional specimen types has been assessed by the performing laboratory. The performance characteristics of this assay have been determined by [facility] Molecular Infectious Disease Laboratory. Current interpretive data was last revised on 22. us Naa Tam MD LAB MICROBIOLOGY - GENER AL ORDERABLES Final Result Performing Organization Address City/[facility]/ZIP Co de Phone Number [facility] [place] [address] * (ABNORMAL) CBC with auto differential (07/08/2024 8:56 PM LARYNGOLOGIST) WBC 8.0 3.8 - 9.9 K/cumm Hgb 14.4 13.0 - 17.5 g/dL [facility] Hct 43.3 38.9 - 50.3 % [facility] Plt 236 150 - 400 K/cumm [facility] MPV 12.4(H) 9.1 - 12.3 fL [facility] RBC 4.49 4.30 - 5.80 M/cumm [facility] MCV 96.4 81.3 - 96.4 fL [facility] MCH 32.1 27.1 - 33.3 pg [facility] MCHC 33.3 32.3 - 35.7 g/dL [facility] RDW CV 13.5 11.1 - 14.9 % [facility] RDW SD 47.9 35.7 - 48.1 fL [facility] NRBC abs 0.00 0.00 - 0.01 K/cumm [facility] Blood 07/08/2024 8:56 PM LARYNGOLOGIST 07/08/2024 9:27 PM LARYNGOLOGIST us Naa Tam MD LAB BLOOD ORDERABLES Fin al Result Performing Organization Address City/[facility]/ZIP Co de Phone Number [facility] [place] [address] * Lipase (07/08/2024 8:56 PM LARYNGOLOGIST) Lipase 32 10 - 99 Units/L Blood 07/08/2024 8:56 PM LARYNGOLOGIST 07/08/2024 9:26 PM LARYNGOLOGIST us Naa Tam MD LAB BLOOD ORDERABLES Fin al Result [facility] Department [place] [address] * (ABNORMAL) Comprehensive metabolic panel (07/08/2024 8:56 PM LARYNGOLOGIST) Pathologist [facility] Sodium 141 135 - 145 mmol/L Potassium, pl 4.5 3.3 - 4.9 mmol/L [facility] Chloride 102 97 - 110 mmol/L [facility] CO2 28 22 - 32 mmol/L [facility] Anion gap 11 2 - 15 mmol/L [facility] BUN 15 6 - 25 mg/dL [facility] Creatinine 0.63(L) 0.80 - 1.30 mg/dL [facility] Glucose 110 70 - 199 mg/dL [facility] Comment: Interpretive Data Fasting glucose >/= 126 [...] 2022. Calcium 10.1 8.5 - 10.3 mg/dL [facility] Bilirubin, total 0.2 0.1 - 1.2 mg/dL [facility] Protein, pl 8.0 6.5 - 8.5 g/dL [facility] Albumin 4.1 3.5 - 5.0 g/dL [facility] Alk phos 110 40 - 130 Units/L [facility] ALT 28 7 - 55 Units/L [facility] AST 26 10 - 50 Units/L [facility] Blood 07/08/2024 8:56 PM LARYNGOLOGIST 07/08/2024 9:26 PM LARYNGOLOGIST us Naa Tam MD LAB BLOOD ORDERABLES Fin al Result Performing Organization Address City/[facility]/ZIP Co de Phone Number [facility] Department [place] [address] * ECG 12-LEAD (07/08/2024 8:28 PM LARYNGOLOGIST) Narrative [facility] - 07/08/2024 8:28 PM LARYNGOLOGIST Naa Tam MD 07/08/2024 8:30 PM ECG [...] Tam MD ECG ORDERABLES Final Re sult [facility] * XR Chest 1 View (07/08/2024 8:18 PM LARYNGOLOGIST) Anatomical Region Laterality Modality Body, Chest N/A Computed Radiogr aphy 07/08/2024 8:28 PM LARYNGOLOGIST Impressions 07/08/2024 9:56 PM LARYNGOLOGIST Comparison is made to chest graft dated [...] Sekou Wolf M.D. Narrative 07/08/2024 9:56 PM LARYNGOLOGIST EXAMINATION: 1 view chest radiograph Procedure Note [...] Result * POCT glucose (06/28/2024 4:24 PM LARYNGOLOGIST) Glucose, POC 191 70 - 199 mg/dL Blood 06/28/2024 4:24 PM LARYNGOLOGIST 06/28/2024 4:24 PM LARYNGOLOGIST us Kami Dupont MD LAB POCT ORDERABLES - DEV ICE Final Result [facility] Department [place] [address] * POCT glucose (06/28/2024 12:30 PM LARYNGOLOGIST) Glucose, POC 197 70 - 199 mg/dL Blood 06/28/2024 12:3 0 PM LARYNGOLOGIST 06/28/2024 12:30 PM LARYNGOLOGIST us Kami Dupont MD LAB POCT ORDERABLES - DEV ICE Final Result Performing Organization Address [facility] [place] [address] * POCT glucose (06/28/2024 7:43 AM LARYNGOLOGIST) Glucose, POC 191 70 - 199 mg/dL Blood 06/28/2024 7:43 AM LARYNGOLOGIST 06/28/2024 7:43 AM LARYNGOLOGIST Kami Dupont MD LAB POCT ORDERABLES - DEV ICE Final Result Performing Organization Address [facility] [place] [address] * POCT glucose (06/28/2024 4:01 AM LARYNGOLOGIST) Glucose, POC 173 70 - 199 mg/dL Blood 06/28/2024 4:01 AM LARYNGOLOGIST 06/28/2024 4:01 AM LARYNGOLOGIST us Kami Dupont MD LAB POCT ORDERABLES - DEV ICE Final Result Performing Organization Address [facility] [place] [address] * (ABNORMAL) POCT glucose (06/27/2024 11:28 PM LARYNGOLOGIST) Glucose, POC 220(H) 70 - 199 mg/dL Comment:Use Protocol Glucose comment 1 Use Protocol [facility] Blood 06/27/2024 11:2 8 PM LARYNGOLOGIST 06/27/2024 11:28 PM LARYNGOLOGIST us Kami Dupont MD LAB POCT ORDERABLES - DEV ICE Final Result Performing Organization Address [facility]/ZIP Co de Phone Number [facility] Department [place] [address] * eGFR (06/27/2024 9:30 PM LARYNGOLOGIST) eGFR >90 >=60 mL/min/1. 73 m2 Comment: [...] last reviewed 2021. Blood 06/27/2024 9:30 PM LARYNGOLOGIST 06/27/2024 9:45 PM LARYNGOLOGIST us Kami Dupont MD LAB BLOOD ORDERABLES Lulu l Result Performing Organization Address [facility] de Phone Number [facility] Department [place] [address] * Phosphorus (06/27/2024 9:30 PM LARYNGOLOGIST) Phosphorus, pl 3.3 2.3 - 4.5 mg/dL Comment:Repeated and Verifie d Blood 06/27/2024 9:30 PM LARYNGOLOGIST 06/27/2024 9:45 PM LARYNGOLOGIST Kami Dupont MD LAB BLOOD ORDERABLES Lulu l Result Performing Organization Address [facility]/State/ZIP Co de Phone Number [facility] Department [place] [address] * Magnesium (06/27/2024 9:30 PM LARYNGOLOGIST) [facility] Magnesium 1.9 1.4 - 2.5 mg/dL Blood 06/27/2024 9:30 PM LARYNGOLOGIST 06/27/2024 9:45 PM LARYNGOLOGIST Kami Dupont MD LAB BLOOD ORDERABLES Lulu brijesh Result [facility] Department [place] [address] * (ABNORMAL) Basic metabolic panel (06/27/2024 9:30 PM LARYNGOLOGIST) [facility] Sodium 141 135 - 145 mmol/L Potassium, pl 4.4 3.3 - 4.9 mmol/L [facility] Chloride 105 97 - 110 mmol/L [facility] CO2 28 22 - 32 mmol/L [facility] Anion gap 8 2 - 15 mmol/L [facility] BUN 9 6 - 25 mg/dL [facility] Creatinine 0.47(L) 0.80 - 1.30 mg/dL [facility] Glucose 208(H) 70 - 199 mg/dL [facility] Comment: Interpretive Data Fasting glucose >/= 126 [...] 2022. Calcium 8.9 8.5 - 10.3 mg/dL [facility] Blood 06/27/2024 9:30 PM LARYNGOLOGIST 06/27/2024 9:45 PM LARYNGOLOGIST Kami Dupont MD LAB BLOOD ORDERABLES Lulu l Result Performing Organization Address [facility] Co de Phone Number [facility] [place] [address] * POCT glucose (06/27/2024 8:39 PM LARYNGOLOGIST) Glucose, POC 195 70 - 199 mg/dL Blood 06/27/2024 8:39 PM LARYNGOLOGIST 06/27/2024 8:39 PM LARYNGOLOGIST Kami Dupont MD LAB POCT ORDERABLES - DEV ICE Final Result Performing Organization Address [facility] Phone Number [facility] [place] [address] * POCT glucose (06/27/2024 5:10 PM LARYNGOLOGIST) Glucose, POC 194 70 - 199 mg/dL Blood 06/27/2024 5:10 PM LARYNGOLOGIST 06/27/2024 5:10 PM LARYNGOLOGIST Kami Dupont MD LAB POCT ORDERABLES - DEV ICE Final Result Performing Organization Address [facility] de Phone Number [facility] [place] [address] * (ABNORMAL) POCT glucose (06/27/2024 4:27 PM LARYNGOLOGIST) Glucose, POC 224(H) 70 - 199 mg/dL Blood 06/27/2024 4:27 PM LARYNGOLOGIST 06/27/2024 4:27 PM LARYNGOLOGIST us Kami Dupont MD LAB POCT ORDERABLES - DEV ICE Final Result Performing Organization Address [facility] Co de Phone Number [facility] Department [place] [address] * POCT glucose (06/27/2024 1:06 PM LARYNGOLOGIST) Glucose, POC 173 70 - 199 mg/dL Blood 06/27/2024 1:06 PM LARYNGOLOGIST 06/27/2024 1:06 PM LARYNGOLOGIST Kami Dupont MD LAB POCT ORDERABLES - DEV ICE Final Result [facility] [place] [address] * POCT glucose (06/27/2024 9:59 AM LARYNGOLOGIST) Glucose, POC 158 70 - 199 mg/dL Blood 06/27/2024 9:59 AM LARYNGOLOGIST 06/27/2024 9:59 AM LARYNGOLOGIST Kami Dupont MD LAB POCT ORDERABLES - DEV ICE Final Result Performing Organization Address City/[facility] [place] [address] * eGFR (06/26/2024 10:21 PM LARYNGOLOGIST) eGFR >90 >=60 mL/min/1. 73 m2 Comment: [...] reviewed 2021. Blood 06/26/2024 10:2 1 PM LARYNGOLOGIST 06/26/2024 10:53 PM LARYNGOLOGIST us Kami Dupont MD LAB BLOOD ORDERABLES Lulu coley Result [facility] Department [place] [address] * Differential, auto (06/26/2024 10:21 PM LARYNGOLOGIST) Neutrophil abs 5.0 1.5 - 6.5 K/cumm Imm gran abs 0.0 0.0 - 0.1 K/cumm [facility] Lymphocyte abs 2.4 0.8 - 3.3 K/cumm [facility] Monocyte abs 0.8 0.2 - 0.8 K/cumm [facility] Eosinophil abs 0.4 0.0 - 0.5 K/cumm [facility] Basophil abs 0.0 0.0 - 0.1 K/cumm [facility] Neutrophil pct 58.2 % [facility] Comment: Interpretive Data Percent cell count reference ranges are not reported, since discordance with absolute values may lead to misinterpretation of CBC data. Current Interpretive Data was last revised on 2017. Imm gran pct 0.3 % [facility] Comment: Interpretive Data Percent cell count reference ranges are not reported, since discordance with absolute values may lead to misinterpretation of CBC data. Current Interpretive Data was last revised on 2017. Lymphocyte pct 27.9 % [facility] Comment: Interpretive Data Percent cell count reference ranges are not reported, since discordance with absolute values may lead to misinterpretation of CBC data. Current Interpretive Data was last revised on 2017. Monocyte pct 9.2 % [facility] Comment: Interpretive Data Percent cell count reference ranges are not reported, since discordance with absolute values may lead to misinterpretation of CBC data. Current Interpretive Data was last revised on 2017. Eosinophil pct 4.1 % [facility] Comment: Interpretive Data Percent cell count reference ranges are not reported, since discordance with absolute values may lead to misinterpretation of CBC data. Current Interpretive Data was last revised on 2017. Basophil pct 0.3 % [facility] Comment: Interpretive Data Percent cell count reference ranges are not reported, since discordance with absolute values may lead to misinterpretation of CBC data. Current Interpretive Data was last revised on 2017. Blood 06/26/2024 10:2 1 PM LARYNGOLOGIST 06/26/2024 10:53 PM LARYNGOLOGIST us Kami Dupont MD LAB BLOOD ORDERABLES Lulu coley Result [facility] Department [place] [address] * (ABNORMAL) CBC with auto differential (06/26/2024 10:21 PM LARYNGOLOGIST) Pathologist [facility] WBC 8.6 3.8 - 9.9 K/cumm Hgb 13.1 13.0 - 17.5 g/dL [facility] Hct 39.1 38.9 - 50.3 % [facility] Plt 173 150 - 400 K/cumm [facility] MPV 13.1(H) 9.1 - 12.3 fL [facility] RBC 4.07(L) 4.30 - 5.80 M/cumm [facility] MCV 96.1 81.3 - 96.4 fL [facility] MCH 32.2 27.1 - 33.3 pg [facility] MCHC 33.5 32.3 - 35.7 g/dL [facility] RDW CV 13.5 11.1 - 14.9 % [facility] RDW SD 47.8 35.7 - 48.1 fL [facility] NRBC abs 0.00 0.00 - 0.01 K/cumm [facility] Blood 06/26/2024 10:2 1 PM LARYNGOLOGIST 06/26/2024 10:53 PM LARYNGOLOGIST Kami Dupont MD LAB BLOOD ORDERABLES Lulu l Result Performing Organization Address [facility] de Phone Number [facility] Department [place] [address] * Hepatitis B Surface Antigen Blood (06/26/2024 10:21 PM LARYNGOLOGIST) HepBsAg Nonreactive Nonreactive Blood 06/26/2024 10:2 1 PM LARYNGOLOGIST 06/26/2024 10:53 PM LARYNGOLOGIST Kami Dupont MD LAB MICROBIOLOGY - GENERA L ORDERABLES Final Result Performing Organization Address [facility] Phone Number [facility] Department [place] [address] * (ABNORMAL) Phosphorus (06/26/2024 10:21 PM LARYNGOLOGIST) Phosphorus, pl <0.7(L) 2.3 - 4.5 mg/dL Comment:Repeated and Verifie d Blood 06/26/2024 10:2 1 PM LARYNGOLOGIST 06/26/2024 10:53 PM LARYNGOLOGIST Kami Dupont MD LAB BLOOD ORDERABLES Lulu l Result Performing Organization Address [facility] de Phone Number [facility] Department [place] [address] * Magnesium (06/26/2024 10:21 PM LARYNGOLOGIST) Magnesium 2.0 1.4 - 2.5 mg/dL Blood 06/26/2024 10:2 1 PM LARYNGOLOGIST 06/26/2024 10:53 PM LARYNGOLOGIST Kami Dupont MD LAB BLOOD ORDERABLES Lulu l Result Performing Organization Address [facility]/ZIP Co de Phone Number [facility] Department [place] [address] * (ABNORMAL) Basic metabolic panel (06/26/2024 10:21 PM LARYNGOLOGIST) Pathologist [facility] Sodium 141 135 - 145 mmol/L Potassium, pl 4.7 3.3 - 4.9 mmol/L [facility] Chloride 106 97 - 110 mmol/L [facility] CO2 28 22 - 32 mmol/L [facility] Anion gap 7 2 - 15 mmol/L [facility] BUN 11 6 - 25 mg/dL [facility] Creatinine 0.47(L) 0.80 - 1.30 mg/dL [facility] Glucose 213(H) 70 - 199 mg/dL [facility] Comment: Interpretive Data Fasting glucose >/= 126 [...] 2022. Calcium 9.3 8.5 - 10.3 mg/dL [facility] Blood 06/26/2024 10:2 1 PM LARYNGOLOGIST 06/26/2024 10:53 PM LARYNGOLOGIST us Kami Dupont MD LAB BLOOD ORDERABLES Lulu coley Result [facility] Department [place] [address] * HIV 1/2 Antibody plus p24 Antigen Blood (06/26/2024 3:21 PM LARYNGOLOGIST) Pathologist [facility] HIV 1/2 ab + p24 ag Nonreactive Nonreactive Comment:Nonreactive for HIV- 1 antigen and HIV-1/HIV-2 antibodies. No laboratory evidence of HIV infection. If acute HIV infection is suspected, consider testing for HIV-1 RNA. Current interpretive data was last revised on 22. Blood 06/26/2024 3:21 PM LARYNGOLOGIST 06/26/2024 3:41 PM LARYNGOLOGIST Kami Dupont MD LAB MICROBIOLOGY - GENERA L ORDERABLES Final Result Performing Organization Address [facility] de Phone Number [facility] [place] [address] * Hepatitis C antibody Blood (06/26/2024 3:21 PM LARYNGOLOGIST) Pathologist [facility] Hep C Ab Nonreactive Nonreactive Comment:Antibodies to HCV no t detected. Does NOT exclude the possibility of recent exposure to HCV. Current interpretive data was last revised on 22 Blood 06/26/2024 3:21 PM LARYNGOLOGIST 06/26/2024 3:41 PM LARYNGOLOGIST Kami Dupont MD LAB MICROBIOLOGY - GENERA L ORDERABLES Final Result Performing Organization Address [facility] de Phone Number [facility] [place] [address] * RPR Blood (06/26/2024 3:21 PM LARYNGOLOGIST) Pathologist [facility] RPR Nonreactive Nonreactive Blood 06/26/2024 3:21 PM LARYNGOLOGIST 06/26/2024 3:41 PM LARYNGOLOGIST Kami Dupont MD LAB MICROBIOLOGY - GENERA L ORDERABLES Final Result Performing Organization Address [facility] de Phone Number [facility] [place] [address] * (ABNORMAL) Phosphorus (06/26/2024 3:21 PM LARYNGOLOGIST) Pathologist [facility] Phosphorus, pl 0.7(L) 2.3 - 4.5 mg/dL Comment:Repeated and Verifie d Blood 06/26/2024 3:21 PM LARYNGOLOGIST 06/26/2024 3:41 PM LARYNGOLOGIST us Kami Dupont MD LAB BLOOD ORDERABLES Lulu l Result Performing Organization Address [facility] Co de Phone Number [facility] [place] [address] * eGFR (06/26/2024 12:16 AM LARYNGOLOGIST) eGFR >90 >=60 mL/min/1. 73 m2 Comment: [...] reviewed 2021. Blood 06/26/2024 12:1 6 AM LARYNGOLOGIST 06/26/2024 12:39 AM LARYNGOLOGIST us Patricia Bryant MD LAB BLOOD ORDERABLES Final Res ult Performing Organization Address [facility] Co de Phone Number [facility] Department [place] [address] * (ABNORMAL) Phosphorus (06/26/2024 12:16 AM LARYNGOLOGIST) Phosphorus, pl <0.7(L) 2.3 - 4.5 mg/dL Comment:Repeated and Verifie d Blood 06/26/2024 12:1 6 AM LARYNGOLOGIST 06/26/2024 12:39 AM LARYNGOLOGIST Patricia Bryant MD LAB BLOOD ORDERABLES Final Res ult Performing Organization Address [facility] Co de Phone Number [facility] [place] [address] * Magnesium (06/26/2024 12:16 AM LARYNGOLOGIST) Pathologist [facility] Magnesium 1.9 1.4 - 2.5 mg/dL Blood 06/26/2024 12:1 6 AM LARYNGOLOGIST 06/26/2024 12:39 AM LARYNGOLOGIST Patricia Bryant MD LAB BLOOD ORDERABLES Final Res ult Performing Organization Address [facility] de Phone Number [facility] [place] [address] * (ABNORMAL) Basic metabolic panel (06/26/2024 12:16 AM LARYNGOLOGIST) Pathologist [facility] Sodium 142 135 - 145 mmol/L Potassium, pl 4.4 3.3 - 4.9 mmol/L [facility] Comment:Hemolyzed; Potassium value may be falsely elevated by as much as 0.3-0.5 mmol/L. Suggest redraw and reanalysis. Chloride 109 97 - 110 mmol/L [facility] CO2 29 22 - 32 mmol/L [facility] Anion gap 4 2 - 15 mmol/L [facility] BUN 13 6 - 25 mg/dL [facility] Creatinine 0.53(L) 0.80 - 1.30 mg/dL [facility] Glucose 177 70 - 199 mg/dL [facility] Comment: Interpretive Data Fasting glucose >/= 126 [...] 2022. Calcium 9.0 8.5 - 10.3 mg/dL [facility] Blood 06/26/2024 12:1 6 AM LARYNGOLOGIST 06/26/2024 12:39 AM LARYNGOLOGIST Patricia Bryant MD LAB BLOOD ORDERABLES Final Res ult Performing Organization Address City/[facility]/ZIP Co de Phone Number [facility] Department [place] [address] * POCT glucose (06/23/2024 11:36 AM LARYNGOLOGIST) Glucose, POC 95 70 - 199 mg/dL Blood 06/23/2024 11:3 6 AM LARYNGOLOGIST 06/23/2024 11:36 AM LARYNGOLOGIST Patricia Bryant MD LAB POCT ORDERABLES - DEVICE F inal Result Performing Organization Address [facility] Co de Phone Number [facility] Department [place] [address] * (ABNORMAL) CBC without differential (06/23/2024 9:07 AM LARYNGOLOGIST) [facility] Signature WBC 4.7 3.8 - 9.9 K/cumm Hgb 12.5(L) 13.0 - 17.5 g/dL [facility] Hct 37.4(L) 38.9 - 50.3 % [facility] Plt 145(L) 150 - 400 K/cumm [facility] MPV 12.6(H) 9.1 - 12.3 fL [facility] RBC 3.94(L) 4.30 - 5.80 M/cumm [facility] MCV 94.9 81.3 - 96.4 fL [facility] MCH 31.7 27.1 - 33.3 pg [facility] MCHC 33.4 32.3 - 35.7 g/dL [facility] RDW CV 12.9 11.1 - 14.9 % [facility] RDW SD 45.1 35.7 - 48.1 fL [facility] NRBC abs 0.00 0.00 - 0.01 K/cumm [facility] Blood 06/23/2024 9:07 AM LARYNGOLOGIST 06/23/2024 9:28 AM LARYNGOLOGIST us Patricia Bryant MD LAB BLOOD ORDERABLES Final Res ult [facility] Department [place] [address] * eGFR (06/23/2024 9:00 AM LARYNGOLOGIST) eGFR >90 >=60 mL/min/1. 73 m2 Comment: [...] last reviewed 2021. Blood 06/23/2024 9:00 AM LARYNGOLOGIST 06/23/2024 10:59 AM LARYNGOLOGIST us Patricia Bryant MD LAB BLOOD ORDERABLES Final Res ult [facility] [place] [address] * Phosphorus (06/23/2024 9:00 AM LARYNGOLOGIST) Pathologist [facility] Phosphorus, pl 2.3 2.3 - 4.5 mg/dL Blood 06/23/2024 9:00 AM LARYNGOLOGIST 06/23/2024 10:59 AM LARYNGOLOGIST us Patricia Bryant MD LAB BLOOD ORDERABLES Final Res ult Performing Organization Address City/[facility] [place] [address] * Magnesium (06/23/2024 9:00 AM LARYNGOLOGIST) [facility] Magnesium 1.7 1.4 - 2.5 mg/dL Blood 06/23/2024 9:00 AM LARYNGOLOGIST 06/23/2024 10:59 AM LARYNGOLOGIST us Patricia Bryant MD LAB BLOOD ORDERABLES Final Res ult Performing Organization Address City/[facility]/ZIP Co de Phone Number [facility] Department [place] [address] * Vancomycin level trough (06/23/2024 9:00 AM LARYNGOLOGIST) [facility] Vancomycin trough 15.2 10.0 - 20.0 mcg/mL Blood 06/23/2024 9:00 AM LARYNGOLOGIST 06/23/2024 10:59 AM LARYNGOLOGIST us Patricia Bryant MD LAB BLOOD ORDERABLES [place] [address] * (ABNORMAL) Basic metabolic panel (06/23/2024 9:00 AM LARYNGOLOGIST) Sodium 143 135 - 145 mmol/L Potassium, pl 3.7 3.3 - 4.9 mmol/L [facility] Chloride 108 97 - 110 mmol/L [facility] CO2 28 22 - 32 mmol/L [facility] Anion gap 7 2 - 15 mmol/L [facility] BUN 3(L) 6 - 25 mg/dL [facility] Creatinine 0.50(L) 0.80 - 1.30 mg/dL [facility] Glucose 271(H) 70 - 199 mg/dL [facility] Comment: Interpretive Data Fasting glucose >/= 126 [...] 2022. Calcium 9.0 8.5 - 10.3 mg/dL [facility] Blood 06/23/2024 9:00 AM LARYNGOLOGIST 06/23/2024 10:59 AM LARYNGOLOGIST us Patricia Bryant MD LAB BLOOD ORDERABLES Final Res ult [facility] [facility] [place] [address] * IR G To GJ-Tube Replacement (06/22/2024 1:24 PM LARYNGOLOGIST) Anatomical Region Laterality Modality Body N/A X-Ray Angiograph y 06/22/2024 1:47 PM LARYNGOLOGIST Impressions 06/22/2024 4:13 PM LARYNGOLOGIST Successful percutaneous 18 Fr 45 cm gastrojejunostomy [...] Sean Hillman M.D. Narrative 06/22/2024 4:13 PM LARYNGOLOGIST EXAMINATION: GASTROJEJUNOSTOMY TUBE EXCHANGE HISTORY/INDICATION: 64 yo [...] procedure. TECHNIQUE: Prior to beginning the procedure, [place] Protocol was performed to confirm the patient's [...] placed in the proximal jejunum. A 18 Serbian, 45 cm long JELLY single/double lumen gastrojejunostomy [...] procedure. TECHNIQUE: Prior to beginning the procedure, [place] Protocol was performed to confirm the patient's [...] placed in the proximal jejunum. A 18 Serbian, 45 cm long JELLY single/double lumen gastrojejunostomy [...] by: Sean Hillman M.D. Patricia Bryant MD [facility] IR PROCEDURES Final Result * C. difficile testing Stool (06/21/2024 11:11 AM LARYNGOLOGIST) [facility] Result Negative Negative Toxin Result Negative Negative [facility] C. diff result Negative, free toxin Negative, free toxin [facility] C. diff interp Negative for toxigenic Clostridioides (Clostridium) difficile. Analysis was performed using a glutamate dehydrogenase antigen detection assay combined with a C. difficile toxin detection assay. [facility] Stool 06/21/2024 11:1 1 AM LARYNGOLOGIST 06/21/2024 12:[address] [facility] 06/21/2024 2:38 PM LARYNGOLOGIST Testing for C. difficile is not recommended within 4 days of a negative result, 10 days of a positive, or 24 hours after laxative administration. If this order is clinically indicated, contact the lab and enter the passcode to complete this order.->[id number] us Patricia Bryant MD LAB MICROBIOLOGY - GENERAL ORD ERABLES Final Result Performing Organization Address [facility] de Phone Number [facility] [place] [address] * Infection Prevention VRE Culture Stool (06/21/2024 11:10 AM LARYNGOLOGIST) Report Final Report: Negative Stool 06/21/2024 11:1 0 AM LARYNGOLOGIST 06/21/2024 2:[address] [facility] 06/23/2024 11:15 PM LARYNGOLOGIST Surveillance culture for Infection Prevention purposes only; results indicate colonization, not infection requiring treatment. Testing performed by [facility] Microbiology Laboratory ([phone]). Result Rose Bryant MD LAB MICROBIOLOGY - GENERAL ORD ERABLES Final Result Performing Organization Address [facility] Phone Number [facility] [place] [address] * Vancomycin level trough Draw trough 30 minutes prior to 4th dose. (06/21/2024 7:16 AM LARYNGOLOGIST) Vancomycin trough 16.8 10.0 - 20.0 mcg/mL Blood 06/21/2024 7:16 AM LARYNGOLOGIST 06/21/2024 7:[address] [facility] 06/21/2024 8:10 AM LARYNGOLOGIST Draw trough 30 minutes prior to 4th dose. us Patricia Bryant MD LAB BLOOD ORDERABLES Final Res ult Performing Organization Address [facility]/ZIP Co de Phone Number [facility] Department [place] [address] * eGFR (06/21/2024 5:03 AM LARYNGOLOGIST) eGFR >90 >=60 mL/min/1. 73 m2 Comment: [...] last reviewed 2021. Blood 06/21/2024 5:03 AM LARYNGOLOGIST 06/21/2024 5:14 AM LARYNGOLOGIST us Patricia Bryant MD LAB BLOOD ORDERABLES Final Res ult [facility] Department [place] [address] * Differential, auto (06/21/2024 5:03 AM LARYNGOLOGIST) Neutrophil abs 1.7 1.5 - 6.5 K/cumm Imm gran abs 0.0 0.0 - 0.1 K/cumm [facility] Lymphocyte abs 1.7 0.8 - 3.3 K/cumm [facility] Monocyte abs 0.6 0.2 - 0.8 K/cumm [facility] Eosinophil abs 0.3 0.0 - 0.5 K/cumm [facility] Basophil abs 0.0 0.0 - 0.1 K/cumm [facility] Neutrophil pct 38.8 % [facility] Comment: Interpretive Data Percent cell count reference [...] revised on 2017. Basophil pct 0.5 % [facility] Comment: Interpretive Data Percent cell count reference ranges are not reported, since discordance with absolute values may lead to misinterpretation of CBC data. Current Interpretive Data was last revised on 2017. Blood 06/21/2024 5:03 AM LARYNGOLOGIST 06/21/2024 5:14 AM LARYNGOLOGIST us Patricia Bryant MD LAB BLOOD ORDERABLES Final Res ult [facility] Department [place] [address] * (ABNORMAL) CBC with auto differential (06/21/2024 5:03 AM LARYNGOLOGIST) WBC 4.3 3.8 - 9.9 K/cumm Hgb 11.6(L) 13.0 - 17.5 g/dL [facility] Hct 34.5(L) 38.9 - 50.3 % [facility] Plt 132(L) 150 - 400 K/cumm [facility] MPV 11.3 9.1 - 12.3 fL [facility] RBC 3.53(L) 4.30 - 5.80 M/cumm [facility] MCV 97.7(H) 81.3 - 96.4 fL [facility] MCH 32.9 27.1 - 33.3 pg [facility] MCHC 33.6 32.3 - 35.7 g/dL [facility] RDW CV 13.4 11.1 - 14.9 % [facility] RDW SD 48.0 35.7 - 48.1 fL [facility] NRBC abs 0.00 0.00 - 0.01 K/cumm [facility] Blood 06/21/2024 5:03 AM LARYNGOLOGIST 06/21/2024 5:14 AM LARYNGOLOGIST Patricia Bryant MD LAB BLOOD ORDERABLES Final Res ult [facility] [place] [address] * Phosphorus (06/21/2024 5:03 AM LARYNGOLOGIST) Phosphorus, pl 3.1 2.3 - 4.5 mg/dL Blood 06/21/2024 5:03 AM LARYNGOLOGIST 06/21/2024 5:14 AM LARYNGOLOGIST Patricia Bryant MD LAB BLOOD ORDERABLES Final Res ult [facility] [place] [address] * Magnesium (06/21/2024 5:03 AM LARYNGOLOGIST) Magnesium 1.9 1.4 - 2.5 mg/dL Blood 06/21/2024 5:03 AM LARYNGOLOGIST 06/21/2024 5:14 AM LARYNGOLOGIST us Patricia Bryant MD LAB BLOOD ORDERABLES Final Res ult [facility] Department [place] [address] * (ABNORMAL) Comprehensive metabolic panel (06/21/2024 5:03 AM LARYNGOLOGIST) Sodium 145 135 - 145 mmol/L Potassium, pl 3.4 3.3 - 4.9 mmol/L [facility] Chloride 112(H) 97 - 110 mmol/L [facility] CO2 27 22 - 32 mmol/L [facility] Anion gap 6 2 - 15 mmol/L [facility] BUN 9 6 - 25 mg/dL [facility] Creatinine 0.57(L) 0.80 - 1.30 mg/dL [facility] Glucose 106 70 - 199 mg/dL [facility] Comment: Interpretive Data Fasting glucose >/= 126 [...] Calcium 8.6 8.5 - 10.3 mg/dL [facility] Bilirubin, total 0.2 0.1 - 1.2 mg/dL [facility] Protein, pl 5.6(L) 6.5 - 8.5 g/dL [facility] Albumin 2.7(L) 3.5 - 5.0 g/dL [facility] Alk phos 61 40 - 130 Units/L [facility] ALT 15 7 - 55 Units/L [facility] AST 25 10 - 50 Units/L [facility] Blood 06/21/2024 5:03 AM LARYNGOLOGIST 06/21/2024 5:14 AM LARYNGOLOGIST Patricia Bryant MD LAB BLOOD ORDERABLES Final Res ult Performing Organization Address City/[facility]/ZIP Co de Phone Number [facility] Department [place] [address] * (ABNORMAL) MSSA/MRSA (Staphylococcus aureus) Culture Nasal (06/20/2024 10:30 PM LARYNGOLOGIST) Report Final Report: Methicillin-resist ant Staphylococcus aureus Methicillin-resist ant Staphylococcus aureus #2 (.) Organism METHICILLIN-RESIST ANT STAPHYLOCOCCUS AUREUS [facility] Organism METHICILLIN-RESIST ANT STAPHYLOCOCCUS AUREUS [facility] Nasal 06/20/2024 10:3 0 PM LARYNGOLOGIST 06/20/2024 10:43 PM LARYNGOLOGIST Narrative [facility] - 06/23/2024 10:45 AM LARYNGOLOGIST Testing performed by [facility] Microbiology Laboratory ([phone]). Patricia Bryant MD LAB MICROBIOLOGY - GENERAL ORD ERABLES Final Result Performing Organization Address [facility] Co de Phone Number [facility] Department [place] [address] * XR Abdomen Ap 1 Vw (06/20/2024 10:29 AM LARYNGOLOGIST) Anatomical Region Laterality Modality Body, Abdomen N/A Computed Radiogr aphy 06/20/2024 10:5 3 AM LARYNGOLOGIST Impressions 06/20/2024 11:51 AM LARYNGOLOGIST Gastrostomy tube. Colonic distention is improved. No radiographic evidence of obstruction. Dictated by: Hunter Hernandez M.D. ([place]) The radiology attending physician has personally reviewed this study, and had reviewed and/or edited this written report and agrees with it. Electronically signed by: Byron Moya M.D. Narrative 06/20/2024 11:51 AM LARYNGOLOGIST EXAMINATION: Abdomen, one view. HISTORY: Abdominal distention. [...] and culture Urine, bladder (06/19/2024 9:34 PM LARYNGOLOGIST) Color, ur Straw Yellow Clarity, ur Clear Clear [facility] Specific gravity, ur 1.021 1.003 - 1.030 [facility] pH, urine 7.0 [facility] Comment: Interpretive Data U rine pH is affected by diet, medications, systemic acid-base disturbances, and renal tubular function. pH may affect urinary stone formation. For example, urine pH below 6.0 may help reduce the tendency for calcium phosphate stones and pH greater than 6.0 may reduce the tendency for uric acid stone formation. Source: [employer] Current Interpretive Data was last revised on [...] Reflex to microscopic UA will be performed. [facility] Urine, bladder 06/19/2024 9: 34 PM LARYNGOLOGIST 06/19/2024 10:05 PM LARYNGOLOGIST Patricia Bryant MD LAB MICROBIOLOGY - GENERAL ORD ERABLES Final Result Performing Organization Address City/[facility]/ZIP Co de Phone Number [facility] [place] [address] * Urinalysis, microscopic only (06/19/2024 9:34 PM LARYNGOLOGIST) WBC, ur 0-5 0 - 5 /HPF RBC, ur 0-2 0 - 2 /HPF [facility] Epithelial cells, squamous, ur 1-5 0 - 5 /HPF [facility] Culture Reflex Comment Reflex conditions for urine culture (WBC >10) not met. [facility] Urine, bladder 06/19/2024 9: 34 PM LARYNGOLOGIST 06/19/2024 10:05 PM LARYNGOLOGIST Patricia Bryant MD LAB URINE ORDERABLES Final Res ult Performing Organization Address [facility] Co de Phone Number [facility] Department [place] [address] * (ABNORMAL) Differential, auto (06/19/2024 9:28 PM LARYNGOLOGIST) Pathologist [facility] Neutrophil abs 6.0 1.5 - 6.5 K/cumm Imm gran abs 0.0 0.0 - 0.1 K/cumm [facility] Lymphocyte abs 0.7(L) 0.8 - 3.3 K/cumm [facility] Monocyte abs 0.2 0.2 - 0.8 K/cumm [facility] Eosinophil abs 0.2 0.0 - 0.5 K/cumm [facility] Basophil abs 0.0 0.0 - 0.1 K/cumm [facility] Neutrophil pct 84.1 % [facility] Comment: Interpretive Data Percent cell count reference ranges are not reported, since discordance with absolute values may lead to misinterpretation of CBC data. Current Interpretive Data was last revised on 2017. Imm gran pct 0.4 % [facility] Comment: Interpretive Data Percent cell count reference ranges are not reported, since discordance with absolute values may lead to misinterpretation of CBC data. Current Interpretive Data was last revised on 2017. Lymphocyte pct 10.1 % [facility] Comment: Interpretive Data Percent cell count reference ranges are not reported, since discordance with absolute values may lead to misinterpretation of CBC data. Current Interpretive Data was last revised on 2017. Monocyte pct 2.9 % [facility] Comment: Interpretive Data Percent cell count reference ranges are not reported, since discordance with absolute values may lead to misinterpretation of CBC data. Current Interpretive Data was last revised on 2017. Eosinophil pct 2.4 % [facility] Comment: Interpretive Data Percent cell count reference ranges are not reported, since discordance with absolute values may lead to misinterpretation of CBC data. Current Interpretive Data was last revised on 2017. Basophil pct 0.1 % [facility] Comment: Interpretive Data Percent cell count reference ranges are not reported, since discordance with absolute values may lead to misinterpretation of CBC data. Current Interpretive Data was last revised on 2017. Blood 06/19/2024 9:2 8 PM LARYNGOLOGIST 06/19/2024 10:38 PM LARYNGOLOGIST us Patricia Bryant MD LAB BLOOD ORDERABLES Final Res ult [facility] Department [place] [address] * Lacosamide level (06/19/2024 9:28 PM LARYNGOLOGIST) Lacosamide 9.6 1.0 - 10.0 mcg/mL [facility] Comment: ADDITIONAL INFORMATION This test was developed and its performance characteristics determined by [facility] in a manner consistent with CLIA requirements. This test has not been cleared or approved by the U.S. Food and Drug Administration. Test Performed by: [facility] [place] [id number] [place] [address] Supervisor Plastering: Marianela Odonnell Ph.D.; CLIA# [id number] Blood 06/19/2024 9:28 PM LARYNGOLOGIST 06/19/2024 11:01 PM LARYNGOLOGIST Narrative [facility] - 06/22/2024 10:25 AM LARYNGOLOGIST Please get level before lacosamide dose is given Patricia Bryant MD LAB BLOOD ORDERABLES Final Res ult Performing Organization Address City/[facility]/ZIP Co de Phone Number [facility] [place] [address] [facility] * (ABNORMAL) CBC with auto differential (06/19/2024 9:28 PM LARYNGOLOGIST) [facility] WBC 7.1 3.8 - 9.9 K/cumm Hgb 12.5(L) 13.0 - 17.5 g/dL [facility] Hct 37.0(L) 38.9 - 50.3 % [facility] Plt 152 150 - 400 K/cumm [facility] MPV 12.6(H) 9.1 - 12.3 fL [facility] RBC 3.90(L) 4.30 - 5.80 M/cumm [facility] MCV 94.9 81.3 - 96.4 fL [facility] MCH 32.1 27.1 - 33.3 pg [facility] MCHC 33.8 32.3 - 35.7 g/dL [facility] RDW CV 13.4 11.1 - 14.9 % [facility] RDW SD 46.8 35.7 - 48.1 fL [facility] NRBC abs 0.00 0.00 - 0.01 K/cumm [facility] Blood 06/19/2024 9:28 PM LARYNGOLOGIST 06/19/2024 10:38 PM LARYNGOLOGIST Patricia Bryant MD LAB BLOOD ORDERABLES Final Res ult [facility] Department [place] [address] * Valproic acid level, total (06/19/2024 9:28 PM LARYNGOLOGIST) [facility] Valproic Acid 76.0 50.0 - 100.0 mcg/mL Comment: Interpretive Data Therapeutic or toxic effects of anticonvulsant drugs may occur at different concentrations in different patients and the correlation between dose and clinical effect must be evaluated individually. Current interpretative data was last revised on 13. Blood 06/19/2024 9:28 PM LARYNGOLOGIST 06/19/2024 10:39 PM LARYNGOLOGIST Narrative [facility] - 06/19/2024 11:40 PM LARYNGOLOGIST Please get level before dose is given us Patricia Bryant MD LAB BLOOD ORDERABLES Final Res ult [facility] Department [place] [address] * Respiratory pathogen panel Nasopharyngeal (06/19/2024 9:10 PM LARYNGOLOGIST) [facility] Influenza A RNA Not Detected Not Detected Influenza B RNA Not Detected Not Detected [facility] RSV RNA Not Detected Not Detected [facility] COVID-19 RNA Not Detected Not Detected [facility] Coronavirus 229E RNA Not Detected Not Detected [facility] Coronavirus HKU1 RNA Not Detected Not Detected [facility] Coronavirus NL63 RNA Not Detected Not Detected [facility] Coronavirus OC43 RNA Not Detected Not Detected [facility] Adenovirus DNA Not Detected Not Detected [facility] Metapneumovirus RNA Not Detected Not Detected [facility] Rhinovirus/Enterov irus RNA Not Detected Not Detected [facility] Parainfluenza 1 RNA Not Detected Not Detected [facility] Parainfluenza 2 RNA Not Detected Not Detected [facility] Parainfluenza 3 RNA Not Detected Not Detected [facility] Parainfluenza 4 RNA Not Detected Not Detected [facility] B. pertussis DNA Not Detected Not Detected [facility] B. parapertussis DNA Not Detected Not Detected [facility] C. pneumoniae DNA Not Detected Not Detected [facility] M. pneumoniae DNA Not Detected Not Detected [facility] Nasopharyngeal 06/19/2024 9: 10 PM LARYNGOLOGIST 06/19/2024 10:06 PM LARYNGOLOGIST Katey [facility] - 06/19/2024 11:35 PM LARYNGOLOGIST Is the Patient experiencing symptoms consistent with COVID?->Yes Surveillance testing for transplant patient?->No Interpretive Data The MeeDoc FilmArray Respiratory Panel (RP2.1) assay is a [...] assay has FDA clearance for testing of PHYSICAL TESTING SUPERVISOR swabs. The performance of additional specimen types has been assessed by the performing laboratory. The performance characteristics of this assay have been determined by [facility] Molecular Infectious Disease Laboratory. Current interpretive data was last revised on 22. Patricia Bryant MD LAB MICROBIOLOGY - GENERAL ORD ERABLES Final Result Performing Organization Address [facility] Co de Phone Number [facility] Department [place] [address] * (ABNORMAL) Aerobic culture and gram stain Tracheal aspirate Tracheal (06/19/2024 6:53 PM LARYNGOLOGIST) Direct Specimen Exam Stain: Abundant polymorphonuclear leukocytes seen. Few squamous epithelial cells seen. Moderate mixed bacterial domenico seen on Gram stain. Report Final Report: Greater than or equal to 100,000 colonies/ml of Staphylococcus aureus Methicillin resistant (MRSA) by penicillin binding protein 2a (PBP2a) testing. Plus growth of clinically insignificant bacterial domenico. (.) [facility] Organism STAPHYLOCOCCUS AUREUS [facility] Organism PLUS GROWTH OF CLINICALLY INSIGNIFICANT DOMENICO. [facility] Tracheal aspirate (Tracheal) 06/19/2024 6:53 PM LARYNGOLOGIST 06/19/2024 8:18 PM LARYNGOLOGIST Narrative [facility] - 06/27/2024 2:52 PM LARYNGOLOGIST Testing performed by [facility] Microbiology Laboratory ([phone]) Specimens submitted from normally sterile body sites [...] - GENERAL ORD ERABLES Final Result [facility] Department [place] [address] * XR Chest 1 View (06/19/2024 6:47 PM LARYNGOLOGIST) Anatomical Region Laterality Modality Body, Chest N/A Digital Radiogra phy 06/20/2024 2:42 PM LARYNGOLOGIST Impressions 06/20/2024 3:15 PM LARYNGOLOGIST Comparison is made to 06/19/2024 at 3:32 [...] Herve Payne M.D. Narrative 06/20/2024 3:15 PM LARYNGOLOGIST EXAMINATION: 1 view chest radiograph Procedure Note [...] pathogen panel Tracheal aspirate (06/19/2024 6:46 PM LARYNGOLOGIST) Influenza A RNA Not Detected Not Detected Influenza B RNA Not Detected Not Detected [facility] RSV RNA Not Detected Not Detected [facility] COVID-19 RNA Not Detected Not Detected [facility] Coronavirus 229E RNA Not Detected Not Detected [facility] Coronavirus HKU1 RNA Not Detected Not Detected [facility] Coronavirus NL63 RNA Not Detected Not Detected [facility] Coronavirus OC43 RNA Not Detected Not Detected [facility] Adenovirus DNA Not Detected Not Detected [facility] Metapneumovirus RNA Not Detected Not Detected [facility] Rhinovirus/Enterov irus RNA Not Detected Not Detected [facility] Parainfluenza 1 RNA Not Detected Not Detected [facility] Parainfluenza 2 RNA Not Detected Not Detected [facility] Parainfluenza 3 RNA Not Detected Not Detected [facility] Parainfluenza 4 RNA Not Detected Not Detected [facility] B. pertussis DNA Not Detected Not Detected [facility] B. parapertussis DNA Not Detected Not Detected [facility] C. pneumoniae DNA Not Detected Not Detected [facility] M. pneumoniae DNA Not Detected Not Detected [facility] Tracheal aspirate 06/19/2024 6:46 PM LARYNGOLOGIST 06/20/2024 7:55 AM LARYNGOLOGIST Narrative [facility] - 06/20/2024 8:58 AM LARYNGOLOGIST Is the Patient experiencing symptoms consistent with COVID?->Yes Surveillance testing for transplant patient?->No Interpretive Data The MeeDoc FilmArray Respiratory Panel (RP2.1) assay is a [...] assay has FDA clearance for testing of PHYSICAL TESTING SUPERVISOR swabs. The performance of additional specimen types has been assessed by the performing laboratory. The performance characteristics of this assay have been determined by [facility] Molecular Infectious Disease Laboratory. Current interpretive data was last revised on 22. Patricia Bryant MD LAB MICROBIOLOGY - GENERAL ORD ERABLES Final Result [facility] [facility] Department [place] [address] * XR Abdomen Ap 1 Vw (06/19/2024 4:09 PM LARYNGOLOGIST) Anatomical Region Laterality Modality Body, Abdomen N/A Digital Radiogra phy 06/19/2024 4:35 PM LARYNGOLOGIST Impressions 06/19/2024 5:03 PM LARYNGOLOGIST Diffuse mild gaseous bowel distention, similar to the prior exam and could represent ileus. Partially imaged gastrostomy tube. Dictated by: Hunter Hernandez M.D. ([place]an) The radiology attending physician has personally reviewed this study, and had reviewed and/or edited this written report and agrees with it. Electronically signed by: Lupillo Lugo M.D. Narrative 06/19/2024 5:03 PM LARYNGOLOGIST EXAMINATION: Abdomen, one view. HISTORY: Abdominal pain [...] XR Chest 1 View (06/19/2024 4:08 PM LARYNGOLOGIST) Anatomical Region Laterality Modality Body, Chest N/A Digital Radiogra phy 06/19/2024 4:21 PM LARYNGOLOGIST Impressions 06/19/2024 4:21 PM LARYNGOLOGIST The current study is compared with the [...] Elif Patel M.D. Narrative 06/19/2024 4:21 PM LARYNGOLOGIST EXAMINATION: 1 view chest radiograph Procedure Note [...] atelectasis. Electronically signed by: Elif Patel M.D. Patricai Bryant MD IMG XR PROCEDURES Final Result * eGFR (06/19/2024 2:47 PM LARYNGOLOGIST) Pathologist [facility] eGFR >90 >=60 [...] last reviewed 2021. Blood 06/19/2024 2:47 PM LARYNGOLOGIST 06/19/2024 3:03 PM LARYNGOLOGIST Patricia Bryant MD LAB BLOOD ORDERABLES Final Res ult [facility] Department [place] [address] * Differential, auto (06/19/2024 2:47 PM LARYNGOLOGIST) Neutrophil abs 5.5 1.5 - 6.5 K/cumm Imm gran abs 0.0 0.0 - 0.1 K/cumm [facility] Lymphocyte abs 0.9 0.8 - 3.3 K/cumm [facility] Monocyte abs 0.2 0.2 - 0.8 K/cumm [facility] Eosinophil abs 0.3 0.0 - 0.5 K/cumm [facility] Basophil abs 0.0 0.0 - 0.1 K/cumm [facility] Neutrophil pct 79.8 % [facility] Comment: Interpretive Data Percent cell count reference ranges are not reported, since discordance with absolute values may lead to misinterpretation of CBC data. Current Interpretive Data was last revised on 2017. Imm gran pct 0.4 % [facility] Comment: Interpretive Data Percent cell count reference ranges are not reported, since discordance with absolute values may lead to misinterpretation of CBC data. Current Interpretive Data was last revised on 2017. Lymphocyte pct 13.4 % [facility] Comment: Interpretive Data Percent cell count reference ranges are not reported, since discordance with absolute values may lead to misinterpretation of CBC data. Current Interpretive Data was last revised on 2017. Monocyte pct 2.5 % [facility] Comment: Interpretive Data Percent cell count reference ranges are not reported, since discordance with absolute values may lead to misinterpretation of CBC data. Current Interpretive Data was last revised on 2017. Eosinophil pct 3.8 % [facility] Comment: Interpretive Data Percent cell count reference ranges are not reported, since discordance with absolute values may lead to misinterpretation of CBC data. Current Interpretive Data was last revised on 2017. Basophil pct 0.1 % [facility] Comment: Interpretive Data Percent cell count reference ranges are not reported, since discordance with absolute values may lead to misinterpretation of CBC data. Current Interpretive Data was last revised on 2017. Blood 06/19/2024 2:47 PM LARYNGOLOGIST 06/19/2024 3:04 PM LARYNGOLOGIST us Patricia Bryant MD LAB BLOOD ORDERABLES Final Res ult [facility] Department [place] [address] * (ABNORMAL) CBC with auto differential (06/19/2024 2:47 PM LARYNGOLOGIST) WBC 6.9 3.8 - 9.9 K/cumm Hgb 14.2 13.0 - 17.5 g/dL [facility] Hct 42.4 38.9 - 50.3 % [facility] Plt 135(L) 150 - 400 K/cumm [facility] MPV 12.6(H) 9.1 - 12.3 fL [facility] RBC 4.47 4.30 - 5.80 M/cumm [facility] MCV 94.9 81.3 - 96.4 fL [facility] MCH 31.8 27.1 - 33.3 pg [facility] MCHC 33.5 32.3 - 35.7 g/dL [facility] RDW CV 13.2 11.1 - 14.9 % [facility] RDW SD 46.5 35.7 - 48.1 fL [facility] NRBC abs 0.00 0.00 - 0.01 K/cumm [facility] Blood 06/19/2024 2:47 PM LARYNGOLOGIST 06/19/2024 3:04 PM LARYNGOLOGIST Patricia Bryant MD LAB BLOOD ORDERABLES Final Res ult [facility] Department of [place], [place] [id number] * (ABNORMAL) Phosphorus (06/19/2024 2:47 PM LARYNGOLOGIST) Phosphorus, pl 2.2(L) 2.3 - 4.5 mg/dL Blood 06/19/2024 2:47 PM LARYNGOLOGIST 06/19/2024 3:03 PM LARYNGOLOGIST Patricia Bryant MD LAB BLOOD ORDERABLES Final Res ult [facility] [place] [address] * Magnesium (06/19/2024 2:47 PM LARYNGOLOGIST) Magnesium 2.0 1.4 - 2.5 mg/dL Blood 06/19/2024 2:47 PM LARYNGOLOGIST 06/19/2024 3:03 PM LARYNGOLOGIST us Patricia Bryant MD LAB BLOOD ORDERABLES Final Res ult [facility] Department [place] [address] * (ABNORMAL) Comprehensive metabolic panel (06/19/2024 2:47 PM LARYNGOLOGIST) Pathologist [facility] Sodium 144 135 - 145 mmol/L Potassium, pl 3.9 3.3 - 4.9 mmol/L [facility] Comment:Hemolyzed; Potassium value may be falsely elevated by as much as 0.3-0.5 mmol/L. Suggest redraw and reanalysis. Chloride 105 97 - 110 mmol/L [facility] CO2 29 22 - 32 mmol/L [facility] Anion gap 10 2 - 15 mmol/L [facility] BUN 7 6 - 25 mg/dL [facility] Creatinine 0.62(L) 0.80 - 1.30 mg/dL [facility] Glucose 113 70 - 199 mg/dL [facility] Comment: Interpretive Data Fasting glucose >/= 126 [...] 2022. Calcium 9.5 8.5 - 10.3 mg/dL [facility] Bilirubin, total 0.2 0.1 - 1.2 mg/dL [facility] Protein, pl 7.2 6.5 - 8.5 g/dL [facility] Albumin 3.7 3.5 - 5.0 g/dL [facility] Alk phos 91 40 - 130 Units/L [facility] ALT 13 7 - 55 Units/L [facility] AST 28 10 - 50 Units/L [facility] Comment:Hemolyzed; result ma y be falsely elevated Blood 06/19/2024 2:47 PM LARYNGOLOGIST 06/19/2024 3:03 PM LARYNGOLOGIST Result [facility] Patricia Bryant MD LAB BLOOD ORDERABLES Final Res ult Performing Organization Address [facility]/ZIP Co de Phone Number [facility] Department [place] [address] * POCT glucose (06/19/2024 2:25 PM LARYNGOLOGIST) Glucose, POC 125 70 - 199 mg/dL Blood 06/19/2024 2:25 PM LARYNGOLOGIST 06/19/2024 2:25 PM LARYNGOLOGIST Result [facility] Patricia Bryant MD LAB POCT ORDERABLES - DEVICE F inal Result Performing Organization Address [facility] de Phone Number [facility] Department [place] [address] * TNI with LIPID PANEL (08/24/2017 4:57 PM CDT) Pathologist [facility] Troponin I < 0.300 0.000 - 0.300 ng/mL 08/24/2017 5:29 PM [facility] Comment: Reference using JERRICA Chemiluminescence Negative: Repeat in 4-6 hours as indicated. Triglycerides 34 0 - 199 mg/dL 08/24/2017 5:30 PM [facility] Comment:12 hr pc highly avani mmended for Triglyceride Cholesterol 129 0 - 199 mg/dL 08/24/2017 5:30 PM [facility] HISTORICAL RESULTS Comment: Borderline: 200-239 High Risk: >239 HDL Cholesterol 71 mg/dL 8 5:30 PM [facility] RES[facility] Comment: Reference Ranges: Males: >=40 mg/dL Females: >=50 mg/dL LDL Cholesterol, Calc 51 0 - 130 mg/dL 08/24/2017 5:30 PM CDT [facility] HISTORICAL RESULTS Comment:High Risk > 159 mg/d L Cholesterol/HDL Ratio 1.8 08/24/2017 5:30 PM CDT [facility] HISTORICAL RESULTS Comment: Cholesterol / HDL Ratio 3.5:1 or less is desirable. Cholesterol / HDL Ratio greater than 5:1 is considered higher risk for developing heart disease. 08/24/2017 4:57 PM CDT 08/24/2017 4:59 PM CDT Narrative [facility] HISTORICAL RESULTS - 08/24/2017 5:30 PM CDT Comment Glucose, blood, POC Everett Manningconor Rizoangelique LAB BLOOD ORDERABLES Lulu coley Result 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 Source: [facility] [employer]. 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 Source: [facility] [employer]. 09/18/22 Acinetobacter os 09/18/[address] [facility] Advance Directives For more information, please contact: [phone] Documents on File Type Date Recorded Patient Seat Joiner Chainstitch Expl anation ADVANCE DIRECTIVE 10/08/2012 12:00 AM SANDRA R OF [employer] PREPARER FINANCIAL/MEDICAL * Full Code (Latest Code Status on File) Date Activated Date Inactivated Comments 06/12/2024 3:22 PM 06/28/2024 9:30 PM * Full Code Date Activated Date Inactivated Comments 12/10/2020 9:05 AM 12/13/2020 10:44 PM Care Teams Milk Collector Relationship Specialty Start Date End Date Marielena Smallwood MD [address] [place] [address] PCP - General Family Practice 07/08/24
--- OUTSIDE RECORDS SUMMARY | 2024-09-16 22:15 | XMS_ITS | Clinical Summary ---
Author Organization [facility] Address [address] [place] [address] Care Team Providers Care Sludge Control Operator Name Role Phone Frank Toure MD Unavailable Marielena Smallwood MD Primary Care Provider [phone] Allergies Active Allergy Reactions Criticality Noted Date Comments Clonazepam Hallucinations Medium 12/09/2021 hallucinations Medications vitamin B-1 100 MG TabIndications:Seiz ure ([facility]) Take 1 tablet (100 mg total) by [...] x 7.5 MG/0.1ML Liquid Therapy PackIndications:Tara llanes ([facility]) 2 sprays by Nasal route as needed. [...] No evidence of infection Urine cultures from [facility] last month were negative growth as [...] infection. Antibiotics not indicated Osteoporosis 11/22/2018 Seizure ([facility]) 08/25/2017 Cerebrovascular accident (CV A) due to thrombosis of right posterior cerebral artery ([facility]) 02/20/2016 Assessment & Plan (11/29/2018 9:36 PM CDT): Patient has residual cognitive difficulties I think beyond with patient and her family have recognized in the past however as noted in adequate medication intake her side effects may be causing deterioration. Hypertension 07/24/2015 Hyperlipidemia 04/14/2015 Assessment & Plan (11/29/2018 9:36 PM CDT): Continue home meds and monitor Seizure ([facility]) 04/11/2015 Assessment & Plan (11/29/2018 9:39 PM CDT): History of generalized seizure disorder and being managed by a neurologist in [facility] however there is confusion from family about dosages of his medications because he is got multiple pill bottles at home. Verification of levetiracetam dose per neurologist noted Encounters Date Type Department Care Team Description 08/14/2024 MyChart Message Enc [facility] Family Medicine [address] [address] Marielena Smallwood MD Use of Jardiance 07/08/2024 Scan HEALTH INFO SRVCS Scanned, Doc Med Group 06/28/2024 Scan HEALTH INFO SRVCS Scanned, Doc Med Group from Last 3 Months Immunizations Immunization Administration Dates Next Due Influenza (Generic) 03/16/2021,03/07/2020,2018,04/23/2015 [...] Comments Blood Pressure 128/72 06/17/2022 10:46 AM PRECISION LATHE OPERATOR Pulse 95 06/17/2022 10:46 AM PRECISION LATHE OPERATOR Temperature 36.4 C (97.6 F) 06/07/2022 12:31 PM PRECISION LATHE OPERATOR Respiratory Rate 18 06/17/2022 10:4 6 AM PRECISION LATHE OPERATOR Oxygen Saturation 98% 06/17/2022 10: 46 AM PRECISION LATHE OPERATOR Inhaled Oxygen Concentration - - Weight 59 kg (130 lb) 06/17/2022 10:46 AM PRECISION LATHE OPERATOR stated - unable to weigh Height 180.3 cm (5' 11 ) 06/17/2022 10: 46 AM PRECISION LATHE OPERATOR Body Mass Index 18.13 06/17/2022 10:46 AM PRECISION LATHE OPERATOR Plan of Treatment Health Maintenance Due Date Last Done Comments Annual Physical 01/27/1963 Zoster Vaccines (1 of 2) 2011 Pneumococcal Vaccine: 50+ Years (2 of 2 - PCV) 02/03/2017 02/04/2016, 08/13/2015, 02/07/2015 RSV Immunization or 60+ Years (1 - Risk 60-74 years 1-dose series) 2021 COVID-19 Vaccine (4 - 2023-2 5 season) 2024 04/06/2021, 07/02/2020, 06/11/2020 PHQ-2 (Physician [place]) 05/30/2024 Colorectal Cancer Screening Colonoscopy (10 Years) 11/22/2026 11/22/2016 DTaP, Tdap and Td Vaccines ( 3 - Td or Tdap) 06/06/2027 06/06/2017, 03/23/2017 Hepatitis C Completed 06/26/2024, 06/23/2016, 06/23/2016 Meningococcal B Vaccine Aged Out No l onger eligible based on patient's age to complete this topic Meningococcal Vaccine Aged Out No eleonora luc eligible based on patient's age to complete this topic RSV Immunizations Under 20 Months Aged Out No longer eligible b ased on patient's age to complete this topic Procedures Procedure Name Priority Date/Time Associated Diagnosis Comments COLONOSCOPY Routine 11/22/2016 12:00 AM CDT HEPATITIS C ANTIBODY Routine 06/23/2016 11:13 AM PRECISION LATHE OPERATOR from Last 3 Months or Most Recently Relevant to Health Maintenance Results * Colonoscopy (11/22/2016 12:00 AM CDT) 11/22/2016 11/22/2016 Narrative [facility] TO EPIC CONVERSION - 11/22/2016 12:00 AM CDT Documented hx of procedure Procedure Note Jerica Tsai MD - 04/02/2018 Documented hx of procedure us Generic Neris Tsai MD GI PROCEDURE ORDERABLES Final Result Performing Organization Address City/[facility] Co de Phone Number [facility] TO EPIC CONVERSION * HEPATITIS C ANTIBODY (06/23/2016 11:13 AM PRECISION LATHE OPERATOR) HEPATITIS C AB NON-REACTIVE [place] [address] NR [facility] TO EPIC CONVERSION 06/23/2016 11:1 3 AM PRECISION LATHE OPERATOR 06/23/2016 11:13 AM PRECISION LATHE OPERATOR Narrative [facility] TO EPIC CONVERSION - 06/24/2016 6:41 PM PRECISION LATHE OPERATOR Result Communication: No patient communication needed at this time Misael Maradiaga DO LABORATORY Final Result [facility] TO EPIC CONVERSION from Last 3 Months or Most Recently Relevant to Health Maintenance Insurance PICHARDO Advance Directives Documents on File Type Date Recorded Patient Restaurant Crew Expl 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
--- OUTSIDE RECORDS SUMMARY | 2024-09-16 22:15 | XMS_ITS | Encounter Summary ---
Author Organization [facility] - [facility] Address [address] [place] [address] Care Team Providers Care Classification Analyst Name Role Phone Frank Toure MD Unavailable Joyce Luevano NP Primary Care Provider Unavaila Marielena Adame MD Primary Care Provider [phone] Encounter Details Date Type Department Care Team (Late st Contact Info) Description 05/11/2022 Smartzert Message Enc [facility] Medical Group Family Medicine - [address] [address] Joyce Luevano, BOUCHRA Pat appointment [...] on filedocumented in this encounter Care Teams Classification Analyst Relationship Specialty Start Date End Date Joyce Luevano NP [address] [place] [address] PCP - General NURSE PRACTITIONER 01/14/20 10/26/23 Marielena Smallwood MD [address] [place] [id number] PCP - General FAMILY PRACTICE 10/27/23 Frank Toure MD [address] [place] [address] [place] Sandblaster Paint Sprayer CARDIOVASCULAR DISEASE 05/30/16 documented as of this encounter
--- OUTSIDE RECORDS SUMMARY | 2024-09-16 22:15 | XMS_ITS | Encounter Summary ---
Author Organization [facility] - [facility] Address [address] [place] [address] Care Team Providers Care Plaster Whittler Name Role Phone Frank Toure MD Unavailable Joyce Luevano NP Primary Care Provider Unavaila Marielena Adame MD Primary Care Provider [phone] Encounter Details Date Type Department Care Team (Late st Contact Info) Description 03/13/2022 Advanced Patient Caret Message Enc [facility] Family Medicine - [address] [address] Joyce Luevano, PSYCHOLOGICAL STRESS EVALUATOR Bi Tabor Update Social History Tobacco Use [...] on filedocumented in this encounter Care Teams Plaster Whittler Relationship Specialty Start Date End Date Joyce Luevano NP [address] [place] [address] PCP - General NURSE PRACTITIONER 01/14/20 10/26/23 Marielena Smallwood MD [address] [place] [id number] PCP - General FAMILY PRACTICE 10/27/23 Frank Toure MD [address] [place] [address] [place] Social Work Associate CARDIOVASCULAR DISEASE 05/30/16 documented as of this encounter
--- OUTSIDE RECORDS SUMMARY | 2024-09-16 22:15 | XMS_ITS | Encounter Summary ---
Author Organization [facility] - [facility] Address [address] [place] [address] Care Team Providers Care Laborer Vineyard Name Role Phone Frank Toure MD Unavailable Joyce Luevano NP Primary Care Provider Unavaila Marielena Adame MD Primary Care Provider Encounter Details Date Type Department Care Team (Late st Contact Info) Description 02/23/2022 EVERYWAREt Message Enc [facility] Family Medicine - [address] [address] Joyce Luevano, PAD MACHINE OFFBEARER Bi Tabor Social History Tobacco Use Types [...] 11:25 AM CDT Message sent through [employer] chart message * Yonatan Rodriguez RN - 02/23/2022 10:24 AM CDT Please see note. Thanks documented in this encounter Plan of Treatment Not on file documented as of this encounter Visit Diagnoses Not on filedocumented in this encounter Care Teams Laborer Vineyard Relationship Specialty Start Date End Date Joyce Luevano NP [address] [place] [address] PCP - General NURSE PRACTITIONER 01/14/20 10/26/23 Marielena Smallwood MD [address] [place] [id number] PCP - General FAMILY PRACTICE 10/27/23 Frank Toure MD [address] [place] [address] [place] Supervisor Meter Shop CARDIOVASCULAR DISEASE 05/30/16 documented as of this encounter
--- OUTSIDE RECORDS SUMMARY | 2024-09-16 22:15 | XMS_ITS | Encounter Summary ---
Author Organization [facility] Address [address] [place] [address] Care Team Providers Care Software Engineering Supervisor Name Role Phone Frank Toure MD Unavailable Joyce Luevano NP Primary Care Provider Unavaila Marielena Adame MD Primary Care Provider [phone] Encounter Details Date Type Department Care Team (Late st Contact Info) Description 07/06/[address] [facility] Family Medicine - [address] [address] Joyce Luevano, MANAGER FIELD SERVICES Bi Tabor Social History Tobacco Use Types [...] Coronavirus/COVID-19? No / Unsure 06/17/2022 10:38 AM RUG CUTTER documented as of this encounter Functional Status [...] 1:34 PM CST Please see note. Thanks CUTTER * Yonatan Rodriguez RN - 07/07/2022 8:09 AM CST Please see note. Thanks CUTTER documented in this encounter Plan of Treatment Not on file documented as of this encounter Visit Diagnoses Not on filedocumented in this encounter Care Teams Software Engineering Supervisor Relationship Specialty Start Date End Date Joyce Luevano NP [address] [place] [address] PCP - General NURSE PRACTITIONER 01/14/20 10/26/23 Marielena Smallwood MD [address] [place] [address] PCP - General FAMILY PRACTICE 10/27/23 [place] [address] [place] [address] [place] Plumber Helper CARDIOVASCULAR DISEASE 05/30/16 documented as of this encounter
--- OUTSIDE RECORDS SUMMARY | 2024-09-16 22:15 | XMS_ITS | Encounter Summary ---
Author Organization [facility] - [facility] Address [address] [place] [address] Care Team Providers Care Payroll Analyst Name Role Phone Frank Toure MD Unavailable Joyce Luevano NP Primary Care Provider Unavaila Marielena Adame MD Primary Care Provider [phone] Encounter Details Date Type Department Care Team (Late st Contact Info) Description 02/23/2022 MyChart Message Enc [facility] Family Medicine - [address] [address] Joyce Luevano, BOUCHRA Bi updated [...] 10:33 AM CDT These updated through the [employer] system. documented in this encounter Plan of Treatment Not on file documented as of this encounter Visit Diagnoses Not on filedocumented in this encounter Care Teams Payroll Analyst Relationship Specialty Start Date End Date Joyce Luevano NP [address] [place] [address] PCP - General NURSE PRACTITIONER 01/14/20 10/26/23 Marielena Smallwood MD [address] [place] [id number] PCP - General FAMILY PRACTICE 10/27/23 Frank Toure MD [address] [place] [address] [employer] Documentation Consultant CARDIOVASCULAR DISEASE 05/30/16 documented as of this encounter
--- OUTSIDE RECORDS SUMMARY | 2024-09-16 22:15 | XMS_ITS | Encounter Summary ---
Author Organization [facility] - [facility] Address [address] [place] [address] Care Team Providers Care Process Equipment Operator Name Role Phone Frank Toure MD Unavailable Joyce Luevano NP Primary Care Provider Unavaila Marielena Adame MD Primary Care Provider [phone] Encounter Details Date Type Department Care Team (Late st Contact Info) Description 03/08/2022 Box Jumpt Message Enc [facility] Medical [facility] Family Medicine - [address] [address] Joyce Luevano, BOUCHRA Vascular doctor [...] filedocumented in this encounter Care Teams Process Equipment Operator Relationship Specialty Start Date End Date Joyce Luevano NP [address] [place] [address] PCP - General NURSE PRACTITIONER 01/14/20 10/26/23 Marielena Smallwood MD [address] [place] [id number] PCP - General FAMILY PRACTICE 10/27/23 Frank Toure MD [address] [place] [address] [facility] Associate CARDIOVASCULAR DISEASE 05/30/16 documented as of this encounter
--- OUTSIDE RECORDS SUMMARY | 2024-09-16 22:15 | XMS_ITS | Encounter Summary ---
Author Organization [facility] - [facility] Address [address] [place] [address] Care Team Providers Care District Court Bailiff Name Role Phone Frank Toure MD Unavailable Joyce Luevano NP Primary Care Provider Unavaila Marielena Adame MD Primary Care Provider [phone] Encounter Details Date Type Department Care Team (Late st Contact Info) Description 03/09/2022 Navajo Systemst Message Enc [facility] Medical Group Family Medicine - [address] [address] Joyce Luevano, STUDY LEAD Update on [employer] [place] Social History Tobacco [...] on filedocumented in this encounter Care Teams District Court Bailiff Relationship Specialty Start Date End Date Joyce Luevano NP [address] [place] [address] PCP - General NURSE PRACTITIONER 01/14/20 10/26/23 Marielena Smallwood MD [address] [place] [id number] PCP - General FAMILY PRACTICE 10/27/23 Frank Toure MD [address] [place] [address] [facility] [employer] Cheese Maker CARDIOVASCULAR DISEASE 05/30/16 documented as of this encounter
--- OUTSIDE RECORDS SUMMARY | 2024-09-16 22:15 | XMS_ITS | Encounter Summary ---
Author Organization [facility] - [facility] Address [address] [place] [address] Care Team Providers Care Commonwealth Attorney Name Role Phone Frank Toure MD Unavailable Joyce Luevano NP Primary Care Provider Unavaila Marielena Adame MD Primary Care Provider [phone] Encounter Details Date Type Department Care Team (Late st Contact Info) Description 03/15/2022 Lingdong.comt Message Enc [facility] Medical Group Family Medicine - [address] [address] Joyce Luevano, COMMUNICATIONS PROFESSOR [place] Social History Tobacco Use Types [...] on filedocumented in this encounter Care Teams Commonwealth Attorney Relationship Specialty Start Date End Date Joyce Luevano NP [address] [place] [address] PCP - General NURSE PRACTITIONER 01/14/20 10/26/23 Marielena Smallwood MD [address] [place] [id number] PCP - General FAMILY PRACTICE 10/27/23 Frank Toure MD [address] [place] [address] [facility] [employer] Officer CARDIOVASCULAR DISEASE 05/30/16 documented as of this encounter
--- OUTSIDE RECORDS SUMMARY | 2024-09-16 22:15 | XMS_ITS | Encounter Summary ---
Author Organization [facility] - [facility] Address [address] [place] [address] Care Team Providers Care Offal Worker Name Role Phone Frank Toure MD Unavailable Joyce Luevano NP Primary Care Provider Unavaila Marielena Adame MD Primary Care Provider [phone] Encounter Details Date Type Department Care Team (Late st Contact Info) Description 06/16/2022 MyCVanquish Oncologyt Message Enc [facility] Medical Group Family Medicine - [address] [address] Joyce Luevano, [employer] [place] Social History Tobacco Use Types [...] Coronavirus/COVID-19? No / Unsure 06/17/2022 10:38 AM MISDRAW HAND documented as of this encounter Functional Status [...] in writing. She states to fax to [phone]. Will send letter to them. RAW HAND * Yonatan Rodriguez RN - 06/16/2022 12:50 PM CST Please see note. Thanks RAW HAND documented in this encounter Plan of Treatment Not on file documented as of this encounter Visit Diagnoses Not on filedocumented in this encounter Care Teams Offal Worker Relationship Specialty Start Date End Date Joyce Luevano NP [address] [place] [address] PCP - General NURSE PRACTITIONER 01/14/20 10/26/23 Marielena Smallwood MD [address] [place] [address] PCP - General FAMILY PRACTICE 10/27/23 Frank Toure MD [address] [place] [address] [facility] Architectural Modeler CARDIOVASCULAR DISEASE 05/30/16 documented as of this encounter
--- OUTSIDE RECORDS SUMMARY | 2024-09-16 22:15 | XMS_ITS | Encounter Summary ---
Author Organization [facility] - [facility] Address [address] [place] [address] Care Team Providers Care Supervisor Wrapping Room Name Role Phone Frank Toure MD Unavailable Joyce Luevano NP Primary Care Provider Unavaila Marielena Adame MD Primary Care Provider [phone] Encounter Details Date Type Department Care Team (Late st Contact Info) Description 02/23/2022 MyCCCP Gamest Message Enc [facility] Medical Group Family Medicine - [address] [address] Joyce Luevano, CARE COMPANION [place] toenail Social History Tobacco Use [...] in this encounter Progress Notes * Yonatan oRdriguez RN - 03/03/2022 10:42 AM CDT Please see note. Thanks * Bautista Whitman MA - 03/03/2022 7:31 AM CDT See below. * Yonatan Rodriguez RN - 02/23/2022 10:25 AM CDT Please see attachment. documented in this encounter Plan of Treatment Not on file documented as of this encounter Visit Diagnoses Not on filedocumented in this encounter Care Teams Supervisor Wrapping Room Relationship Specialty Start Date End Date Joyce Luevano NP [address] [place] [address] PCP - General NURSE PRACTITIONER 01/14/20 10/26/23 Marielena Smallwood MD [facility] [place] [address] PCP - General FAMILY PRACTICE 10/27/23 Frank Toure MD [address] [place] [address] [facility] Paleologist CARDIOVASCULAR DISEASE 05/30/16 documented as of this encounter
--- NOTE | 2024-09-16 22:31 | PC.NURSE ---
x2 RN attempted blood orders/ IV access unsucessful.
--- NOTE | 2024-09-16 22:38 | PC.NURSE ---
phlebotomy at bedside to draw blood.
[2024-09-16 23:00] VITALS: BP 125/77; PULSE 85; RESP 18; O2SAT 98
[2024-09-16 23:09] LABS: Alanine Aminotransferase 18 U/L (6-50); Albumin Level 3.9 g/dL (3.5-5.1); Alkaline Phosphatase 91 U/L (38-126); Anion Gap 12 mmol/L (4-12); Aspartate Amino Transferase 24 U/L (17-59); Bilirubin,Total 0.6 mg/dL (0.2-1.3); Blood Urea Nitrogen 15 mg/dL (9-20); Calcium 9.5 mg/dL (8.4-10.2); Carbon Dioxide 19 mmol/L (22-30); Chloride 109 mmol/L (98-107); Estimated CRCL calculation 113 ml/min; Estimated Glomerular Filt Rate > 60; Glucose 92 mg/dL (65-110); Potassium 4.3 mmol/L (3.4-5.0); Sodium 140 mmol/L (137-145)
--- NOTE | 2024-09-16 23:13 | ED_ITS ---
HPI - General Adult General Chief complaint: Seizure Stated complaint: POSSIBLE SEIZURE PER FAMILY Time Seen by Provider: 09/16/24 21:52 History of Present Illness HPI narrative: Patient is a 64-year-old male who presents the emergency department this evening due to concern for breakthrough seizure. Per EMS report, patient was sent here because his family states that his forehead looked puffy and this usually means that he is going to have a seizure. Patient did not actually have any seizures. Patient states that he has not had his seizure medication the lacosamide for the last 5 days. He is currently denying any symptoms including any chest pain, shortness of breath, abdominal pain, nausea or vomiting. He is answering all questions appropriately. Patient is a trach dependent patient in has a G-tube in place. Otherwise no acute process. Related Data Home Medications ?Medication ?Instructions ?Recorded ?Confirmed ?Last Taken ?Type metoprolol tartrate 25 mg tablet 25 mg feeding tube BID 12/18/22 03/30/24 Unknown History polyethylene glycol 3350 17 17 g feeding tube DAILY PRN 12/18/22 03/30/24 Unknown History gram/dose oral powder Constipation bisacodyl 10 mg rectal suppository 10 mg RECTAL DAILY PRN Constipation 02/11/23 03/30/24 Unknown History sennosides 8.6 mg tablet (senna) 8.6 mg feeding tube BID 02/11/23 03/30/24 Unknown History guaifenesin 100 mg/5 mL oral liquid 300 mg feeding tube BID PRN Cough 07/08/23 03/30/24 Unknown History magnesium hydroxide 400 mg/5 mL 30 ml PO HS PRN Constipation 12/13/23 03/30/24 Unknown History oral suspension (Milk of Magnesia) artificial tears solution eye drops 1 drp ophthalmic (eye) PRN PRN Dry 02/10/24 03/30/24 Unknown History Eye(S) atorvastatin 40 mg tablet 40 mg PO HS 02/10/24 03/30/24 Unknown History calcium carbonate 500 mg/5 mL (as 1,250 mg PO Q6H PRN Heartburn 02/10/24 03/30/24 Unknown History calcium carb 1,250 mg/5 mL) oral suspension clobazam 10 mg tablet 10 mg feeding tube DAILY 02/10/24 03/30/24 Unknown History famotidine 20 mg tablet 20 mg feeding tube BID 02/10/24 03/30/24 Unknown History folic acid 1 mg tablet 1 mg feeding tube DAILY 02/10/24 03/30/24 Unknown History ipratropium 0.5 mg-albuterol 3 mg 3 ml inhalation Q6H PRN Shortness 02/10/24 03/30/24 Unknown History (2.5 mg base)/3 mL nebulization Of Breath soln lacosamide 10 mg/mL oral solution 200 mg feeding tube BID 02/10/24 03/30/24 Unknown History levetiracetam 100 mg/mL oral 1,500 mg feeding tube BID 02/10/24 03/30/24 Unknown History solution magnesium citrate (Citroma oral 296 ml PO DAILY PRN Constipation 02/10/24 03/30/24 Unknown History solution) thiamine HCl (vitamin B1) 100 mg 100 mg feeding tube DAILY 02/10/24 03/30/24 Unknown History tablet valproic acid (as sodium salt) 250 1,250 mg feeding tube QID 02/10/24 03/30/24 Unknown History mg/5 mL oral solution acetaminophen 650 mg/20.3 mL oral 650 mg feeding tube Q4H PRN Pain 03/30/24 03/30/24 Unknown History suspension (Scale Score 1-3) apixaban 5 mg tablet (Eliquis) 5 mg feeding tube BID 03/30/24 03/30/24 Unknown History aspirin 81 mg chewable tablet 81 mg feeding tube DAILY 03/30/24 03/30/24 Unknown History Allergies Allergy/AdvReac Type Severity Reaction Status Date / Time clonazepam Allergy Unknown Unknown Verified 08/20/24 06:49 Review of Systems 2 Review of Systems: All systems are reviewed and are negative unless stated otherwise in the HPI. [facility] Past Medical History Medical History Deep venous thrombosis of upper extremity Benign prostatic hyperplasia Cerebrovascular accident Residual expressive aphasia, dysphagia, and left-sided weakness. Chronic obstructive pulmonary disease Esophageal diverticulum Gastroparesis Iron deficiency anemia Vascular dementia with psychotic disturbance Seizure disorder Surgical History Surgical History History of gastrostomy tube placement History of tracheostomy History of left above knee amputation Family History Family History Other Unknown family medical history Social History Social History Social History: Surrogate medical decision maker: Adriane Hilliard, sibling. Code status: Full code. 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 HEENT: PERRL, no rhinorrhea, no post nasal drip, oropharynx clear. Neck: Trach collar in place, no JVD, no lymphadenopathy. Cardiovascular: Regular rate and rhythm, no murmurs, rubs or gallops, no peripheral edema. Respiratory: Clear to auscultation bilaterally, no tachypnea, no wheezing, no rhonchi, no rubs, no respiratory distress. Abdomen: Soft, nontender, nondistended, no rebound, no guarding, no peritoneal signs, G-tube in place. Musculoskeletal: No joint swelling or deformity, normal muscle tone. Skin: No rashes or petechia, no signs of infection. Psychiatric: Alert and oriented, normal behavior and judgment for situation. Neurological: Alert and oriented to person, place, and time. Follows all commands. No focal deficits, speech is clear and fluent. Course Vital Signs Vital signs: Vital Signs Temperature 97.8 F 09/16/24 21:12 Pulse Rate 96 09/16/24 21:12 Respiratory Rate 26 H 09/16/24 21:12 Blood Pressure 130/93 H 09/16/24 21:12 Pulse Oximetry 98 09/16/24 21:12 Oxygen Delivery Room Air 09/16/24 21:12 Temperature 97.8 F 09/16/24 21:12 Pulse Rate 85 09/16/24 23:00 Respiratory Rate 18 09/16/24 23:00 Blood Pressure 125/77 09/16/24 23:00 Pulse Oximetry 96 09/16/24 23:37 Oxygen Delivery Trach Collar 09/16/24 23:37 Fraction of Inspired Oxygen 21 09/16/24 23:37 Medical Decision Making MDM Narrative Medical decision making narrative: The patient was evaluated by myself in the emergency department. History is obtained from patient who is an independent historian and physical exam was performed. External medical records were reviewed at this time. IV was established and pertinent tests were ordered. EKG was obtained which revealed sinus rhythm rate of 82 beats per minute, no evidence of acute ischemia. EKG was independently interpreted by me and is currently pending official cardiology read. Patient had blood work obtained this morning and his blood work was reviewed. CMP was repeated revealing no electrolyte abnormalities, normal CPK, normal magnesium. Patient also had a chest x-ray performed this morning revealing no acute process. Differential diagnosis considerations include breakthrough seizures, dehydration, electrolyte derangements. Comorbidities impacting this visit include history of seizure disorder. Patient's history home was contacted at this time to confirm the patient does have his seizure medications at the facility. Patient's lacosamide was refilled on 09/13, however, script has not been picked up from the pharmacy. They did admit the patient had his morning dose of the Keppra but not the evening dose. Patient was administered 1500 mg of Keppra and 200 mg of lacosamide at this time through his G-tube. I have evaluated and discussed social determinants of health with the patient that could potentially impact subsequent diagnosis and treatment plans. On repeat assessment of the patient, reevaluation revealed that the patient is doing well and is in no acute distress. Patient symptoms have improved since he arrived to our emergency department. Repeat vital signs were all reviewed and noted to be stable. Differential diagnosis and treatment plan were discussed with the patient at bedside. Patient agrees with discussion and after shared medical decision making agrees with discharge. All questions were answered to the patient's satisfaction. Patient will follow up with his Neurologist in 3-5 days. Patient was provided with strict return precautions and instructed to return to the emergency department if any new or worsening symptoms develop. The patient was discharged in stable condition. Vital Signs Vital Signs: Vital Signs Temperature 97.8 F 09/16/24 21:12 Pulse Rate 96 09/16/24 21:12 Respiratory Rate 26 H 09/16/24 21:12 Blood Pressure 130/93 H 09/16/24 21:12 Pulse Oximetry 98 09/16/24 21:12 Oxygen Delivery Room Air 09/16/24 21:12 Temperature 97.8 F 09/16/24 21:12 Pulse Rate 85 09/16/24 23:00 Respiratory Rate 18 09/16/24 23:00 Blood Pressure 125/77 09/16/24 23:00 Pulse Oximetry 96 09/16/24 23:37 Oxygen Delivery Trach Collar 09/16/24 23:37 Fraction of Inspired Oxygen 21 09/16/24 23:37 Lab Data 09/16/24 22:51 09/16/24 22:51 Labs: Lab Results 09/16/24 Range/Units 22:51 WBC Pending RBC Pending Hgb Pending Hct Pending MCV Pending MCH Pending MCHC Pending RDW Pending Plt Count Pending MPV Pending Immature Gran % (Auto) Pending Neut % (Auto) Pending Lymph % (Auto) Pending [place] % (Auto) Pending Eos % (Auto) Pending Baso % (Auto) Pending Lymph # (Auto) Pending [place] # (Auto) Pending Eos # (Auto) Pending Baso # (Auto) Pending Abs Immat Gran (auto) Pending Absolute Neuts (auto) Pending Absolute Nucleated RBC Pending Nucleated RBC % Pending Sodium 140 (137-145) mmol/L Potassium 4.3 (3.4-5.0) mmol/L Chloride 109 H (98-107) mmol/L Carbon Dioxide 19 L (22-30) mmol/L Anion Gap 12 (4-12) mmol/L BUN 15 (9-20) mg/dL Creatinine 0.50 L (0.7-1.3) mg/dL Estim Creat Clear Calc 113 ml/min Estimated GFR > 60 (59 - ) Glucose 92 (65-110) mg/dL Calcium 9.5 (8.4-10.2) mg/dL Magnesium 2.0 (1.6-2.3) mg/dL Total Bilirubin 0.6 (0.2-1.3) mg/dL AST 24 (17-59) U/L ALT 18 (6-50) U/L Alkaline Phosphatase 91 (38-126) U/L Total Creatine Kinase 116 (55-170) U/L Total Protein 7.0 (6.3-8.2) g/dL Albumin 3.9 (3.5-5.1) g/dL Discharge Plan Discharge Clinical Impression: Seizure disorder Patient Disposition: SNF Condition: Improved Instructions: Epilepsy (ED) Additional Instructions: Please follow-up with your neurologist within the next 3-5 days. Return to emergency department if any new or worsening symptoms develop. Make sure you are taking your seizure medications as prescribed. Your lacosamide was refilled on 09/13/24 any need to make sure that this medication gets picked up from your pharmacy. Pump Patient Language: South African Prescriptions: No Action bisacodyl 10 mg Suppository 10 mg RECTAL DAILY PRN (Reason: Constipation) Rx Instructions: if no results for MOM sennosides [senna] 8.6 mg Tablet 8.6 mg feeding tube BID guaifenesin 100 mg/5 mL liquid 300 mg feeding tube BID PRN (Reason: Cough) magnesium hydroxide [Milk of Magnesia] 400 mg/5 mL Suspension 30 ml PO HS PRN (Reason: Constipation) Rx Instructions: If no BM in 3 days azithromycin 250 mg tablet 250 mg PO DAILY 4 Days Qty: 4 0RF Rx Instructions: start on day 2 of therapy (08/21/24); already received first dose 08/20/24 polyethylene glycol 3350 17 gram/dose powder 17 g feeding tube DAILY PRN (Reason: Constipation) metoprolol tartrate 25 mg tablet 25 mg feeding tube BID atorvastatin 40 mg tablet 40 mg PO HS ipratropium-albuterol 0.5 mg-3 mg(2.5 mg base)/3 mL solution for nebulization 3 ml INHALATION Q6H PRN (Reason: Shortness Of Breath) artificial tears solution Drops 1 drp OPHTHALMIC (EYE) PRN PRN (Reason: Dry Eye(S)) Rx Instructions: instill 1 drop per eye as needed for dry eye thiamine HCl (vitamin B1) 100 mg Tablet 100 mg feeding tube DAILY famotidine 20 mg tablet 20 mg feeding tube BID valproic acid (as sodium salt) 250 mg/5 mL solution 1,250 mg feeding tube QID magnesium citrate [Citroma] Solution 296 ml PO DAILY PRN (Reason: Constipation) Rx Instructions: if no results from enema folic acid 1 mg tablet 1 mg feeding tube DAILY levetiracetam 100 mg/mL solution 1,500 mg feeding tube BID calcium carbonate 500 mg/5 mL (1,250 mg/5 mL) Suspension 1,250 mg PO Q6H PRN (Reason: Heartburn) lacosamide 10 mg/mL solution 200 mg feeding tube BID clobazam 10 mg tablet 10 mg feeding tube DAILY Eliquis 5 mg Tablet 5 mg feeding tube BID aspirin 81 mg Tablet,Chewable 81 mg feeding tube DAILY acetaminophen 650 mg/20.3 mL Suspension 650 mg feeding tube Q4H PRN (Reason: Pain (Scale Score 1-3)) meropenem 1 gram Recon Soln 1 g IV Q8H Qty: 8 0RF Follow-up/Referrals: Ampadu,MD Burke [Primary Care Provider] - Cam Ramos MD [Physician] - 1 Week Time of Disposition: 23:34
[2024-09-16 23:26] LABS: Creatine Kinase 116 U/L (55-170)
[2024-09-16 23:30] VITALS: BP 128/82; PULSE 86; RESP 18; O2SAT 94
--- NOTE | 2024-09-16 23:33 | PC.NURSE ---
this rn spoke with michelle from [facility] to get update on patient medication of lacosimide. Michelle could not provide an exact date of when the medication was going to arrive to give but last dose was on 09/13/24.
[2024-09-16 23:37] VITALS: O2SAT 96
[2024-09-16] MEDS: LACOSAMIDE (*CRX) 200 MG TABLET FEED TUBE (23:49)
[2024-09-16] MEDS: levETIRAcetam ORAL SOL 500 MG/5 ML UDC 1500 MG PO (23:49)
[2024-09-16] MEDS: WATER FOR IRRIGATION, STERILE 500 ML BOTTLE (23:49)
[2024-09-17 00:30] VITALS: BP 135/77; PULSE 76; RESP 15; O2SAT 94
--- NOTE | 2024-09-17 00:37 | PC.NURSE ---
this rn contacted melany Forrest to give update and reason for patient being at the hospital and discharge plan/ instructions at [phone]. this rn also called and gave report to SANDY Graf at [phone] to give discharge instructions.
[2024-09-17 01:00] VITALS: BP 117/83; PULSE 82; RESP 18; O2SAT 94
[2024-09-17 01:30] VITALS: BP 123/82; PULSE 86; RESP 17; O2SAT 93
[2024-09-17] MEDS: ONDANSETRON HCL ODT 4 MG TABLET PO (01:45)
[2024-09-17 02:30] VITALS: BP 122/80; PULSE 78; RESP 16; O2SAT 100
== END 2024-09-17 03:39 ==
PROVIDERS: Emergency Provider Emergency Medicine; PCP Internal Medicine
DX: G40.909 Epilepsy, unspecified, not intractable, without status epilepticus (principal); F01.52 Vascular dementia, unspecified severity, with psychotic disturbance; I69.920 Aphasia following unspecified cerebrovascular disease; I69.991 Dysphagia following unspecified cerebrovascular disease; R13.10 Dysphagia, unspecified; I69.954 Hemiplegia and hemiparesis following unspecified cerebrovascular disease affecting left non-dominant side; J44.9 Chronic obstructive pulmonary disease, unspecified; D50.9 Iron deficiency anemia, unspecified; K31.84 Gastroparesis; N40.0 Benign prostatic hyperplasia without lower urinary tract symptoms; Z93.0 Tracheostomy status; Z93.1 Gastrostomy status; Z86.718 Personal history of other venous thrombosis and embolism; Z87.891 Personal history of nicotine dependence; Z89.612 Acquired absence of left leg above knee; Z79.01 Long term (current) use of anticoagulants; Z79.899 Other long term (current) drug therapy; Z79.82 Long term (current) use of aspirin; R94.31 Abnormal electrocardiogram [ECG] [EKG]
CPT/HCPCS: 36415; 80053; 82550; 83735; 93005; 99284; A9270

== ENCOUNTER 2024-09-17 09:46 | Emergency (ER) | payer OTHER, SELFPAY ==
--- NOTE | ~2024-09-17 | XR_ITS ---
Exam: Abdomen 1V HISTORY: g tube changed, check position 50 ML GASTRO COMPARISON: None. TECHNIQUE: Supine images of the lower chest and upper abdomen FINDINGS: Gastrostomy tube extends into the left upper quadrant. Oral contrast opacifies the stomach and proximal small bowel IMPRESSION: Gastrostomy tube in good position and ready for immediate use. Reviewed, dictated and finalized at location A.
[2024-09-17 09:46] VITALS: BP 143/82; PULSE 64; RESP 18; O2SAT 100
[2024-09-17 09:52] VITALS: RESP 18
[2024-09-17 10:05] VITALS: PULSE 732; RESP 24; O2SAT 99
--- OUTSIDE RECORDS SUMMARY | 2024-09-17 11:18 | XMS_ITS | Clinical Summary ---
Author Organization [facility] Address [address] [place] [address] Care Team Providers Care Public Health Professor Name Role Phone Marielena Smallwood MD Primary [...] 06/28/2024 Assessment & Plan (06/28/2024 11:42 AM LYE BATH OPERATOR): Now back on full TF's sugars running mildly high. Monitor with q4 accuchecks and SSI. Hypophosphatemia 06/27/2024 Assessment & Plan (06/28/2024 11:44 AM LYE BATH OPERATOR): <0.7 ? 2/2 refeeding syndrome. Started on neutraphos 2pkg QID 06/26. Still Phos<0.7 06/27. Tx with IV NaPhos 30mmoles and cont per tube replacement and monitor closely. -06/28: Phos=3.3, reduce nuetraphos to 1 PKG BID and monitor History of DVT (deep vein thrombosis) 06/26/2024 Assessment & Plan (06/26/2024 1:32 PM LYE BATH OPERATOR): -On anticoagulation with Eliquis 5 mg po BID for hx of DVT -per chart review hx of Left Subclavian vein DVT diagnosed 08/01/23 H/O: GI bleed 06/25/2024 Assessment & Plan (06/26/2024 1:32 PM LYE BATH OPERATOR): - recent [facility] ( 06-07-24 [...] 06/25/2024 Assessment & Plan (06/26/2024 1:36 PM LYE BATH OPERATOR): Tracheostomy dependence, has a Shiley #4 cuffed. Pt followed at [facility], per notes trach in place for pulmonary toilet due to his copious secretions and ongoing aspiration of his secretions. -needing frequent suctioning -sats stable on 28% FIO2 by HHTC -Was getting VEST at [facility] Low grade fever 06/20/2024 Assessment & Plan (06/26/2024 1:34 PM LYE BATH OPERATOR): Low-grade fever and tachycardia, softer BP after [...] 06/17/2024 Assessment & Plan (06/28/2024 11:43 AM LYE BATH OPERATOR): -patient at admission with a G tube, [...] tube fell off and pt had 18 Tong[place] G tube placed at [facility] ED on 04/21/24 (records on care everywhere)and after that he has not tolerated well tube feedings per discussion with his sister Ms Hilliard,Adriane [phone] POA - consulted IR 06-20-24 for conversion [...] goal 06/25, adjust FWF per hydration status, melt house centrifugal operator to follow up -On full TF's-osmolite 1.5. Phos repleted. Copious oral secretions 06/13/2024 Assessment & Plan (06/26/2024 1:29 PM LYE BATH OPERATOR): Patient on chronic glycopyrrolate due to secretions, held at admission 2/ to potential for constipation with plan to add back when he's had a bowel movements -resume on 06-19- hold on 06-20 due to somnolence. Suction PRN - restart glycopyrrolate 1mg BID 06/26 and monitor Abdominal pain 06/12/2024 Assessment & Plan (06/26/2024 1:23 PM LYE BATH OPERATOR): -p/w abdominal distention from SNF to ED on 06-12 ,reported biliary emesis per custodial (approximately 300 cc) , not associated fevers or change in bowel habits. Feeding tube placed to gravity drainage in ED H&P notes regular bowel movements. CT scan on 06-12 in ED with stool in the rectum and sigmoid. [place] likely constipation contributing to the patient's abdominal [...] 06/12/2024 Assessment & Plan (06/26/2024 12:08 AM LYE BATH OPERATOR): Complicated by left LE AKA. History of CVA (cerebrovascular accident) 2020 Assessment & Plan (06/26/2024 1:32 PM LYE BATH OPERATOR): - hx of RT parietal CVA- hx of dementia Cont asa and statin Essential hypertension 12/11/2020 Assessment & Plan (06/26/2024 1:30 PM LYE BATH OPERATOR): - on metoprolol and norvasc, held with soft BP 06-19 - resume metoprolol 06-21 -resume amlodipine 06-22 - Monitor Hyperlipidemia 12/11/2020 Assessment & Plan (06/12/2024 3:47 PM LYE BATH OPERATOR): - Continue home statin Seizure 12/10/2020 Assessment & Plan (06/26/2024 1:36 PM LYE BATH OPERATOR): History of seizure disorder secondary to traumatic brain injury. Currently on valproate, Vimpat, Keppra and Cobazam - Continue home medication, valproate level low at admit 48 on 06-12, 48 on 06-13, Valproic acid level 76 06-19 prior to dose, lacosamide level 1.4 on 06/12, 9.6 on 06-19 Followed by Neurology at [facility] Cognitive communication deficit 08/25/2020 Cerebrovascular accident [...] Department Care Team Description 07/09/2024 7:23 PM LYE BATH OPERATOR - 07/09/2024 11:59 PM LYE BATH OPERATOR Hospital Encounter [facility]BULANCE [place]ILL[facility] [address] [place] [address] Discharge Disposition: Discharge to home or self care 07/08/2024 7:52 PM LYE BATH OPERATOR - 07/09/2024 7:48 AM [facility] Emergency [facility] Emergency Department [address] [place] [address] Tri Martinez MD Thomas, Jenna Marie, MD Tracheostomy complication, unspecified complication type (HCC) (Primary Dx); Balanitis Discharge Disposition: Discharge to home or self care 06/12/2024 10:26 AM LYE BATH OPERATOR - 06/28/2024 5:25 PM LYE BATH OPERATOR Hospital Encounter [facility] [address] [place] [address] Shakila Jung MD Choi, Cheuk Ho Jeffrey, MD Nelson, MD Juliane Osullivan, Hermes Ansari Jr., MD Felix, MD Jfef De León, MD Annette Moraes Maria, MD [...] h recurrent seizures (HCC) Followed up at [facility] ([facility]) Degenerative cervical spinal stenosis Family History Medical History Relation Name Comments Coronary artery disease Father Stroke Father Hypertension Mother Relation Name Status Comments Father Mother Social History Tobacco Use Types Packs/Day Years Used Date Smoking Tobacco: Former Cigarettes Smokeless Tobacco: Current Tobacco Cessation:Counseling Given: Yes [facility] Utilities Answer Date Recorded In the [...] often do you attend chur ch or yarsanism services? Never 06/18/2024 Do you belong to any clubs o r organizations such as roman catholic groups, unions, fraternal or athletic groups, or [...] any time in the past [address] [facility], were you homeless or living in a alf (including now)? No 06/18/2024 Personal Safety Answer Date Recorded Have you ever been in or are you currently in a harmful physical or emotional relationship or is someone making you feel afraid or unsafe? Denies 07/08/2024 Sex and Gender Information Value Date Recorded Sex Assigned at Not on file Legal Sex Male 6:11 AM LYE BATH OPERATOR Gender Identity Not on file Sexual Orientation Not on file Obstetrics History Last Filed Vital Signs Vital Sign Reading Time Taken Comments Blood Pressure 145/83 07/09/2024 6:00 AM LYE BATH OPERATOR Pulse 91 07/09/2024 6:00 AM LYE BATH OPERATOR Temperature 36.5 C (97.7 F) 07/09/2024 6:31 AM LYE BATH OPERATOR Respiratory Rate 10 07/09/2024 6:00 AM LYE BATH OPERATOR Oxygen Saturation 100% 07/09/2024 6:00 AM LYE BATH OPERATOR Inhaled Oxygen Concentration - - Weight 79.8 kg (176 lb) 07/09/2024 2:16 AM LYE BATH OPERATOR Height 182.9 cm (6') 07/09/2024 2:16 AM LYE BATH OPERATOR Body Mass Index 23.87 07/09/2024 2:16 AM LYE BATH OPERATOR Plan of Treatment Health Maintenance Due [...] COMMUNITY SCREENING-ISSA ELIGIBLE STAT 07/09/2024 5:32 AM LYE BATH OPERATOR SEPSIS LACTATE WITH REFLEX Timed 07/09/2024 4:33 AM LYE BATH OPERATOR ED PERIPHERAL LINE INSERTION Routine 07/09/2024 1:18 AM LYE BATH OPERATOR SEPSIS LACTATE WITH REFLEX Timed 07/09/2024 1:15 AM LYE BATH OPERATOR RPR STAT 07/09/2024 1:15 AM LYE BATH OPERATOR N. GONORRHOEAE/C. TRACHOMATIS AMPLIFICATION STAT 07/09/2024 1:02 AM LYE BATH OPERATOR URINALYSIS AND REFLEX TO MICROSCOPIC AND CULTURE STAT 07/09/2024 1:02 AM LYE BATH OPERATOR ED PERIPHERAL LINE INSERTION Routine 07/08/2024 10:[address] CHEST ABDOMEN PELVIS W CONTRAST ED 07/08/2024 9:55 PM LYE BATH OPERATOR EGFR STAT 07/08/2024 8:56 PM LYE BATH OPERATOR DIFFERENTIAL AUTO STAT 07/08/2024 8:5 6 PM LYE BATH OPERATOR SEPSIS LACTATE WITH REFLEX STAT 07/08/2024 8:56 PM LYE BATH OPERATOR LIPASE STAT 07/08/2024 8:56 PM LYE BATH OPERATOR COMPREHENSIVE METABOLIC PANEL STAT 07/08/2024 8:56 PM LYE BATH OPERATOR CBC WITH AUTO DIFFERENTIAL STAT 07/08/2024 8:56 PM LYE BATH OPERATOR RESPIRATORY PATHOGEN PANEL STAT 07/08/2024 8:56 PM LYE BATH OPERATOR ECG 12-LEAD Routine 07/08/2024 8:28 PM LYE BATH OPERATOR XR CHEST 1 VIEW ED 07/08/2024 8:18 PM LYE BATH OPERATOR POCT GLUCOSE DEVICE Routine 06/28/2024 4 :24 PM LYE BATH OPERATOR POCT GLUCOSE DEVICE Routine 06/28/2024 1 2:30 PM LYE BATH OPERATOR POCT GLUCOSE DEVICE Routine 06/28/2024 7 :43 AM LYE BATH OPERATOR POCT GLUCOSE DEVICE Routine 06/28/2024 4 :01 AM LYE BATH OPERATOR POCT GLUCOSE DEVICE Routine 06/27/2024 1 1:28 PM LYE BATH OPERATOR EGFR Routine 06/27/2024 9:30 PM LYE BATH OPERATOR PHOSPHORUS Routine 06/27/2024 9:30 PM LYE BATH OPERATOR MAGNESIUM Routine 06/27/2024 9:30 PM LYE BATH OPERATOR BASIC METABOLIC PANEL Routine 06/27/2024 9:30 PM LYE BATH OPERATOR POCT GLUCOSE DEVICE Routine 06/27/2024 8 :39 PM LYE BATH OPERATOR POCT GLUCOSE DEVICE Routine 06/27/2024 5 :10 PM LYE BATH OPERATOR POCT GLUCOSE DEVICE Routine 06/27/2024 4 :27 PM LYE BATH OPERATOR POCT GLUCOSE DEVICE Routine 06/27/2024 1 :06 PM LYE BATH OPERATOR POCT GLUCOSE DEVICE Routine 06/27/2024 9 :59 AM LYE BATH OPERATOR EGFR Routine 06/26/2024 10:21 PM LYE BATH OPERATOR DIFFERENTIAL AUTO Routine 06/26/2024 10: 21 PM LYE BATH OPERATOR PHOSPHORUS Routine 06/26/2024 10:21 PM LYE BATH OPERATOR MAGNESIUM Routine 06/26/2024 10:21 PM LYE BATH OPERATOR CBC WITH AUTO DIFFERENTIAL Routine 06/26/2024 10:21 PM LYE BATH OPERATOR BASIC METABOLIC PANEL Routine 06/26/2024 10:21 PM LYE BATH OPERATOR HEPATITIS B SURFACE ANTIGEN Routine 06/26/2024 10:21 PM LYE BATH OPERATOR PHOSPHORUS Routine 06/26/2024 3:21 PM LYE BATH OPERATOR RPR Routine 06/26/2024 3:21 PM LYE BATH OPERATOR HEPATITIS C ANTIBODY Routine 06/26/2024 3:21 PM LYE BATH OPERATOR HIV 1/2 ANTIBODY PLUS P24 ANTIGEN Routine 06/26/2024 3:21 PM LYE BATH OPERATOR EGFR Routine 06/26/2024 12:16 AM LYE BATH OPERATOR PHOSPHORUS Routine 06/26/2024 12:16 AM LYE BATH OPERATOR MAGNESIUM Routine 06/26/2024 12:16 AM LYE BATH OPERATOR BASIC METABOLIC PANEL Routine 06/26/2024 12:16 AM LYE BATH OPERATOR POCT GLUCOSE DEVICE Routine 06/23/2024 1 1:36 AM LYE BATH OPERATOR CBC WITHOUT DIFFERENTIAL Timed 06/23/2024 9:07 AM LYE BATH OPERATOR VANCOMYCIN LEVEL TROUGH Routine 06/23/2024 9:00 AM LYE BATH OPERATOR EGFR Routine 06/23/2024 9:00 AM LYE BATH OPERATOR MAGNESIUM Routine 06/23/2024 9:00 AM LYE BATH OPERATOR PHOSPHORUS Routine 06/23/2024 9:00 AM LYE BATH OPERATOR BASIC METABOLIC PANEL Routine 06/23/2024 9:00 AM LYE BATH OPERATOR G TO GJ-TUBE REPLACEMENT IP Routine 06/22/2024 1:24 PM LYE BATH OPERATOR C. DIFFICILE TESTING Routine 06/21/2024 11:11 AM LYE BATH OPERATOR INFECTION PREVENTION VRE CULTURE Routine 06/21/2024 11:10 AM LYE BATH OPERATOR VANCOMYCIN LEVEL TROUGH Timed 06/21/2024 7:16 AM LYE BATH OPERATOR EGFR Routine 06/21/2024 5:03 AM LYE BATH OPERATOR DIFFERENTIAL AUTO Routine 06/21/2024 5:0 3 AM LYE BATH OPERATOR PHOSPHORUS Timed 06/21/2024 5:03 AM LYE BATH OPERATOR MAGNESIUM Routine 06/21/2024 5:03 AM LYE BATH OPERATOR COMPREHENSIVE METABOLIC PANEL Routine 06/21/2024 5:03 AM LYE BATH OPERATOR CBC WITH AUTO DIFFERENTIAL Routine 06/21/2024 5:03 AM LYE BATH OPERATOR MSSA/MRSA (STAPHYLOCOCCUS AUREUS) CULTURE Routine 06/20/2024 10:30 PM LYE BATH OPERATOR XR ABDOMEN AP 1 VIEW IP Routine 06/20/2024 10:29 AM LYE BATH OPERATOR URINALYSIS, MICROSCOPIC ONLY Routine 06/19/2024 9:34 PM LYE BATH OPERATOR URINALYSIS AND REFLEX TO MICROSCOPIC AND CULTURE Routine 06/19/2024 9:34 PM LYE BATH OPERATOR DIFFERENTIAL AUTO Routine 06/19/2024 9:2 8 PM LYE BATH OPERATOR CBC WITH AUTO DIFFERENTIAL Routine 06/19/2024 9:28 PM LYE BATH OPERATOR VALPROIC ACID LEVEL, TOTAL Timed 06/19/2024 9:28 PM LYE BATH OPERATOR LACOSAMIDE Routine 06/19/2024 9:28 PM LYE BATH OPERATOR RESPIRATORY PATHOGEN PANEL Routine 06/19/2024 9:10 PM LYE BATH OPERATOR AEROBIC CULTURE AND GRAM STAIN Routine 06/19/2024 6:53 PM LYE BATH OPERATOR XR CHEST 1 VIEW IP Routine 06/19/2024 6:47 PM LYE BATH OPERATOR RESPIRATORY PATHOGEN PANEL Routine 06/19/2024 6:46 PM LYE BATH OPERATOR XR ABDOMEN AP 1 VIEW IP Routine 06/19/2024 4:09 PM LYE BATH OPERATOR XR CHEST 1 VIEW IP Routine 06/19/2024 4:08 PM LYE BATH OPERATOR EGFR Timed 06/19/2024 2:47 PM LYE BATH OPERATOR DIFFERENTIAL AUTO Timed 06/19/2024 2:4 7 PM LYE BATH OPERATOR PHOSPHORUS Timed 06/19/2024 2:47 PM LYE BATH OPERATOR MAGNESIUM Timed 06/19/2024 2:47 PM LYE BATH OPERATOR COMPREHENSIVE METABOLIC PANEL Timed 06/19/2024 2:47 PM LYE BATH OPERATOR CBC WITH AUTO DIFFERENTIAL Timed 06/19/2024 2:47 PM LYE BATH OPERATOR POCT GLUCOSE DEVICE Routine 06/19/2024 2 :25 PM LYE BATH OPERATOR HEMOGLOBIN A1C Routine 06/12/2024 3:30 PM LYE BATH OPERATOR TNI WITH LIPID PANEL Routine 08/24/2017 4:57 PM CDT from Last 3 Months or Most Recently Relevant to Health Maintenance Results * POCT Rapid HIV Antibody Community Screening-Issa Eligible (07/09/2024 5:32 AM LYE BATH OPERATOR) [facility] Rapid HIV, POC Negative Negative Lot Number [id number] QC Control Line Acceptable Blood 07/09/2024 5:32 AM LYE BATH OPERATOR Naa Tam MD POINT OF CARE TEST ORDER NICHOLE Final Result * Sepsis Lactate w/ Reflex (07/09/2024 4:33 AM LYE BATH OPERATOR) Sepsis Lactate 2.0 0.7 - 2.0 mmol/L Blood 07/09/2024 4:33 AM LYE BATH OPERATOR 07/09/2024 4:42 AM LYE BATH OPERATOR Naa Tam MD LAB BLOOD ORDERABLES Fin al Result [facility] Department [place] [address] * ED PERIPHERAL LINE INSERTION (07/09/2024 1:18 AM LYE BATH OPERATOR) Narrative Cherie Damian MD - 07/09/2024 1:18 AM LYE BATH OPERATOR Atul Barba MD 07/09/2024 1:18 AM Peripheral [...] procedure: Tolerated well, no immediate complications Result [facility] Cherie Damian MD IN CLINIC/BEDSIDE ORDERABL ES Final Result * (ABNORMAL) Sepsis Lactate w/ Reflex (07/09/2024 1:15 AM LYE BATH OPERATOR) Sepsis Lactate 2.8(H) 0.7 - 2.0 mmol/L Blood 07/09/2024 1:15 AM LYE BATH OPERATOR 07/09/2024 1:46 AM LYE BATH OPERATOR Naa Tam MD LAB BLOOD ORDERABLES Fin al Result Performing Organization Address City/[facility] Co de Phone Number [facility] Department [place] [address] * RPR Blood (07/09/2024 1:15 AM LYE BATH OPERATOR) RPR Nonreactive Nonreactive Blood 07/09/2024 1:15 AM LYE BATH OPERATOR 07/09/2024 1:40 AM LYE BATH OPERATOR Naa Tam MD LAB MICROBIOLOGY - GENER AL ORDERABLES Final Result Performing Organization Address [facility] Phone Number [facility] [place] [address] * N. gonorrhoeae/C. trachomatis Amplification Urine (07/09/2024 1:02 AM LYE BATH OPERATOR) C. trachomatis Not Detected Not Detected [facility] N. gonorrhoeae Not Detected Not Detected [facility] Comment: Interpretive Data This assay detects Chlamydia trachomatis and Neisseria gonorrhoeae by nucleic acid amplification testing (NAAT). This assay has been cleared by the [place] Food and Drug administration. The performance characteristics of this test have been verified by the [facility] Molecular Infectious Disease laboratory. The performance characteristics of this test have not been evaluated in individuals less than 14 years of age. Current Interpretive Data last revised 2023. Urine (None) 07/09/2024 1:02 AM LYE BATH OPERATOR 07/09/2024 1:35 AM LYE BATH OPERATOR us Naa Tam MD LAB MICROBIOLOGY - GENER AL ORDERABLES Final Result Performing Organization Address [facility] Co de Phone Number [facility] [place] [address] [facility] * (ABNORMAL) Urinalysis reflex to microscopic and culture Urine, clean voided (07/09/2024 1:02 AM LYE BATH OPERATOR) Color, ur Straw Yellow Clarity, ur Clear Clear [facility] Specific gravity, ur >1.042(H) 1.003 - 1.030 [facility] pH, urine 7.5 [facility] Comment: Interpretive Data U rine pH is affected by diet, medications, systemic acid-base disturbances, and renal tubular function. pH may affect urinary stone formation. For example, urine pH below 6.0 may help reduce the tendency for calcium phosphate stones and pH greater than 6.0 may reduce the tendency for uric acid stone formation. Source: [facility] [employer] Current Interpretive Data was last revised on 2017 Protein, ur ql Trace Negative [facility] Glucose, ur ql Negative Negative [facility] Ketones, ur Negative Negative [facility] Bilirubin, ur Negative Negative [facility] Blood, ur Negative Negative [facility] Urobilinogen, ur <2.0 <2.0 mg/dL [facility] Nitrite, ur Negative Negative [facility] Leukocyte esterase, ur Negative Negative [facility] UA reflex comment Reflex conditions for microscopic UA and culture not met. [facility] Urine, clean voided 07/09/2024 1:02 AM LYE BATH OPERATOR 07/09/2024 1:15 AM LYE BATH OPERATOR us Naa Tam MD LAB MICROBIOLOGY - [facility] AL ORDERABLES Final Result Performing Organization Address City/State/[facility] Co de Phone Number [facility] Department [place] [address] * ED PERIPHERAL LINE INSERTION (07/08/2024 10:11 PM LYE BATH OPERATOR) Narrative Tri Martinez MD - 07/08/2024 10:11 PM LYE BATH OPERATOR Atul Barba MD 07/08/2024 10:12 PM Peripheral [...] Abdomen Pelvis W Contrast (07/08/2024 9:55 PM LYE BATH OPERATOR) Anatomical Region Laterality Modality Body N/A Computed Tomogra phy 07/08/2024 10:3 2 PM LYE BATH OPERATOR Impressions 07/09/2024 7:23 AM LYE BATH OPERATOR Liquid stool within the colon, indicative of diarrheal state. Otherwise, no acute abnormalities in the abdomen or pelvis. Dictated by: Delia Morton MD The radiology attending physician has personally reviewed this study, and had reviewed and/or edited this written report and agrees with it. Electronically signed by: Marlon Kohler M.D. Narrative 07/09/2024 7:23 AM LYE BATH OPERATOR EXAMINATION: Computed tomography of the chest, abdomen [...] Sepsis Lactate w/ Reflex (07/08/2024 8:56 PM LYE BATH OPERATOR) Sepsis Lactate 2.4(H) 0.7 - 2.0 mmol/L Blood 07/08/2024 8:56 PM LYE BATH OPERATOR 07/08/2024 9:24 PM LYE BATH OPERATOR us Naa Tam MD LAB BLOOD ORDERABLES Fin al Result [facility] Department [place] [address] * eGFR (07/08/2024 8:56 PM LYE BATH OPERATOR) eGFR >90 >=60 mL/min/1. 73 m2 Comment: [...] last reviewed 2021. Blood 07/08/2024 8:56 PM LYE BATH OPERATOR 07/08/2024 9:26 PM LYE BATH OPERATOR us Naa Tam MD LAB BLOOD ORDERABLES Fin al Result [facility] Department [place] [address] * Differential, auto (07/08/2024 8:56 PM LYE BATH OPERATOR) Neutrophil abs 4.4 1.5 - 6.5 K/cumm Imm gran abs 0.0 0.0 - 0.1 K/cumm [facility] Lymphocyte abs 2.6 0.8 - 3.3 K/cumm [facility] Monocyte abs 0.5 0.2 - 0.8 K/cumm [facility] Eosinophil abs 0.5 0.0 - 0.5 K/cumm [facility] Basophil abs 0.0 0.0 - 0.1 K/cumm [facility] Neutrophil pct 54.7 % [facility] Comment: Interpretive Data Percent cell count reference ranges are not reported, since discordance with absolute values may lead to misinterpretation of CBC data. Current Interpretive Data was last revised on 2017. Imm gran pct 0.2 % [facility] Comment: Interpretive Data Percent cell count reference ranges are not reported, since discordance with absolute values may lead to misinterpretation of CBC data. Current Interpretive Data was last revised on 2017. Lymphocyte pct 32.1 % [facility] Comment: Interpretive Data Percent cell count reference ranges are not reported, since discordance with absolute values may lead to misinterpretation of CBC data. Current Interpretive Data was last revised on 2017. Monocyte pct 6.6 % [facility] Comment: Interpretive Data Percent cell count reference ranges are not reported, since discordance with absolute values may lead to misinterpretation of CBC data. Current Interpretive Data was last revised on 2017. Eosinophil pct 6.0 % [facility] Comment: Interpretive Data Percent cell count reference ranges are not reported, since discordance with absolute values may lead to misinterpretation of CBC data. Current Interpretive Data was last revised on 2017. Basophil pct 0.4 % [facility] Comment: Interpretive Data Percent cell count reference ranges are not reported, since discordance with absolute values may lead to misinterpretation of CBC data. Current Interpretive Data was last revised on 2017. Blood 07/08/2024 8:56 PM LYE BATH OPERATOR 07/08/2024 9:27 PM LYE BATH OPERATOR us Naa Tam MD LAB BLOOD ORDERABLES Fin al Result [facility] Department [place] [address] * Respiratory pathogen panel Nasopharyngeal (07/08/2024 8:56 PM LYE BATH OPERATOR) Pathologist [facility] Influenza A RNA Not Detected Not Detected Influenza B RNA Not Detected Not Detected [facility] RSV RNA Not Detected Not Detected [facility] COVID-19 RNA Not Detected Not Detected [facility] Coronavirus 229E RNA Not Detected Not Detected [facility] Coronavirus HKU1 RNA Not Detected Not Detected [facility] Coronavirus NL63 RNA Not Detected Not Detected [facility] Coronavirus OC43 RNA Not Detected Not Detected [facility] Adenovirus DNA Not Detected Not Detected [facility] Metapneumovirus RNA Not Detected Not Detected [facility] Rhinovirus/Enterov irus RNA Not Detected Not Detected [facility] Parainfluenza 1 RNA Not Detected Not Detected [facility] Parainfluenza 2 RNA Not Detected Not Detected [facility] Parainfluenza 3 RNA Not Detected Not Detected [facility] Parainfluenza 4 RNA Not Detected Not Detected [facility] B. pertussis DNA Not Detected Not Detected [facility] B. parapertussis DNA Not Detected Not Detected [facility] C. pneumoniae DNA Not Detected Not Detected [facility] M. pneumoniae DNA Not Detected Not Detected [facility] Nasopharyngeal 07/08/2024 8: 56 PM LYE BATH OPERATOR 07/08/2024 9:25 PM LYE BATH OPERATOR Narrative [facility] - 07/08/2024 10:16 PM LYE BATH OPERATOR Is the Patient experiencing symptoms consistent with COVID?->Yes Surveillance testing for transplant patient?->No Interpretive Data [employer] Respiratory Panel (RP2.1) assay is a [...] assay has FDA clearance for testing of BOAT CLEANER swabs. The performance of additional specimen types has been assessed by the performing laboratory. The performance characteristics of this assay have been determined by [facility] Infectious Disease Laboratory. Current interpretive data was last revised on 22. us Naa Tam MD LAB MICROBIOLOGY - GENER AL ORDERABLES Final Result Performing Organization Address City/[facility]/ZIP Co de Phone Number [facility] [place] [address] * (ABNORMAL) CBC with auto differential (07/08/2024 8:56 PM LYE BATH OPERATOR) [facility] WBC 8.0 3.8 - 9.9 K/cumm Hgb 14.4 13.0 - 17.5 g/dL [facility] Hct 43.3 38.9 - 50.3 % [facility] Plt 236 150 - 400 K/cumm [facility] MPV 12.4(H) 9.1 - 12.3 fL [facility] RBC 4.49 4.30 - 5.80 M/cumm [facility] MCV 96.4 81.3 - 96.4 fL [facility] MCH 32.1 27.1 - 33.3 pg [facility] MCHC 33.3 32.3 - 35.7 g/dL [facility] RDW CV 13.5 11.1 - 14.9 % [facility] RDW SD 47.9 35.7 - 48.1 fL [facility] NRBC abs 0.00 0.00 - 0.01 K/cumm [facility] Blood 07/08/2024 8:56 PM LYE BATH OPERATOR 07/08/2024 9:27 PM LYE BATH OPERATOR us Naa Tam MD LAB BLOOD ORDERABLES Fin al Result Performing Organization Address [facility]/ZIP Co de Phone Number [facility] Department [place] [address] * Lipase (07/08/2024 8:56 PM LYE BATH OPERATOR) Lipase 32 10 - 99 Units/L Blood 07/08/2024 8:56 PM LYE BATH OPERATOR 07/08/2024 9:26 PM LYE BATH OPERATOR us Naa Tam MD LAB BLOOD ORDERABLES Fin al Result [facility] One [facility] Department [place] [address] * (ABNORMAL) Comprehensive metabolic panel (07/08/2024 8:56 PM LYE BATH OPERATOR) Sodium 141 135 - 145 mmol/L Potassium, pl 4.5 3.3 - 4.9 mmol/L [facility] Chloride 102 97 - 110 mmol/L [facility] CO2 28 22 - 32 mmol/L [facility] Anion gap 11 2 - 15 mmol/L [facility] BUN 15 6 - 25 mg/dL [facility] Creatinine 0.63(L) 0.80 - 1.30 mg/dL [facility] Glucose 110 70 - 199 mg/dL [facility] Comment: Interpretive Data Fasting glucose >/= [...] Calcium 10.1 8.5 - 10.3 mg/dL [facility] Bilirubin, total 0.2 0.1 - 1.2 mg/dL [facility] Protein, pl 8.0 6.5 - 8.5 g/dL [facility] Albumin 4.1 3.5 - 5.0 g/dL [facility] Alk phos 110 40 - 130 Units/L [facility] ALT 28 7 - 55 Units/L [facility] AST 26 10 - 50 Units/L [facility] Blood 07/08/2024 8:56 PM LYE BATH OPERATOR 07/08/2024 9:26 PM LYE BATH OPERATOR us Naa Tam MD LAB BLOOD ORDERABLES Fin al Result Performing Organization Address [facility] Co de Phone Number [facility] One [facility] Department [place] [address] * ECG 12-LEAD (07/08/2024 8:28 PM LYE BATH OPERATOR) Narrative [facility] - 07/08/2024 8:28 PM LYE BATH OPERATOR Naa Tam MD 07/08/2024 8:30 PM ECG [...] ORDERABLES Final Re sult Performing Organization Address [facility] Co de Phone Number [facility] * XR Chest 1 View (07/08/2024 8:18 PM LYE BATH OPERATOR) Anatomical Region Laterality Modality Body, Chest N/A Computed Radiogr aphy 07/08/2024 8:28 PM LYE BATH OPERATOR Impressions 07/08/2024 9:56 PM LYE BATH OPERATOR Comparison is made to chest graft dated [...] Sekou Wolf M.D. Narrative 07/08/2024 9:56 PM LYE BATH OPERATOR EXAMINATION: 1 view chest radiograph Procedure Note [...] Result * POCT glucose (06/28/2024 4:24 PM LYE BATH OPERATOR) Glucose, POC 191 70 - 199 mg/dL Blood 06/28/2024 4:24 PM LYE BATH OPERATOR 06/28/2024 4:24 PM LYE BATH OPERATOR Kami Dupont MD LAB POCT ORDERABLES - DEV ICE Final Result [facility] One [facility] [place] [address] * POCT glucose (06/28/2024 12:30 PM LYE BATH OPERATOR) Glucose, POC 197 70 - 199 mg/dL Blood 06/28/2024 12:3 0 PM LYE BATH OPERATOR 06/28/2024 12:30 PM LYE BATH OPERATOR Kami Dupont MD LAB POCT ORDERABLES - DEV ICE Final Result Performing Organization Address City/[facility] Co de Phone Number [facility] [place] [address] * POCT glucose (06/28/2024 7:43 AM LYE BATH OPERATOR) Glucose, POC 191 70 - 199 mg/dL Blood 06/28/2024 7:43 AM LYE BATH OPERATOR 06/28/2024 7:43 AM LYE BATH OPERATOR Kami Dupont MD LAB POCT ORDERABLES - DEV ICE Final Result Performing Organization Address [facility] Co de Phone Number [facility] [place] [address] * POCT glucose (06/28/2024 4:01 AM LYE BATH OPERATOR) Glucose, POC 173 70 - 199 mg/dL Blood 06/28/2024 4:01 AM LYE BATH OPERATOR 06/28/2024 4:01 AM LYE BATH OPERATOR Kami Dupont MD LAB POCT ORDERABLES - DEV ICE Final Result Performing Organization Address [facility] Co de Phone Number [facility] [place] [address] * (ABNORMAL) POCT glucose (06/27/2024 11:28 PM LYE BATH OPERATOR) Glucose, POC 220(H) 70 - 199 mg/dL Comment:Use Protocol Glucose comment 1 Use Protocol [facility] Blood 06/27/2024 11:2 8 PM LYE BATH OPERATOR 06/27/2024 11:28 PM LYE BATH OPERATOR Kami Dupont MD LAB POCT ORDERABLES - DEV ICE Final Result Performing Organization Address City/[facility] Co de Phone Number [facility] [place] [address] * eGFR (06/27/2024 9:30 PM LYE BATH OPERATOR) eGFR >90 >=60 mL/min/1. 73 m2 Comment: [...] last reviewed 2021. Blood 06/27/2024 9:30 PM LYE BATH OPERATOR 06/27/2024 9:45 PM LYE BATH OPERATOR Kami Dupont MD LAB BLOOD ORDERABLES Lulu l Result [facility] [place] [address] * Phosphorus (06/27/2024 9:30 PM LYE BATH OPERATOR) Pathologist [facility] Phosphorus, pl 3.3 2.3 - 4.5 mg/dL Comment:Repeated and Verifie d Blood 06/27/2024 9:30 PM LYE BATH OPERATOR 06/27/2024 9:45 PM LYE BATH OPERATOR Kami Dupont MD LAB BLOOD ORDERABLES Lulu l Result [facility] [place] [address] * Magnesium (06/27/2024 9:30 PM LYE BATH OPERATOR) Pathologist [facility] Magnesium 1.9 1.4 - 2.5 mg/dL Blood 06/27/2024 9:30 PM LYE BATH OPERATOR 06/27/2024 9:45 PM LYE BATH OPERATOR Kami Dupont MD LAB BLOOD ORDERABLES Lulu l Result [facility] One [facility] Department [place] [address] * (ABNORMAL) Basic metabolic panel (06/27/2024 9:30 PM LYE BATH OPERATOR) Pathologist [facility] Sodium 141 135 - 145 mmol/L Potassium, pl 4.4 3.3 - 4.9 mmol/L [facility] Chloride 105 97 - 110 mmol/L [facility] CO2 28 22 - 32 mmol/L [facility] Anion gap 8 2 - 15 mmol/L [facility] BUN 9 6 - 25 mg/dL [facility] Creatinine 0.47(L) 0.80 - 1.30 mg/dL [facility] Glucose 208(H) 70 - 199 mg/dL [facility] Comment: Interpretive Data Fasting glucose >/= [...] 2022. Calcium 8.9 8.5 - 10.3 mg/dL [facility] Blood 06/27/2024 9:30 PM LYE BATH OPERATOR 06/27/2024 9:45 PM LYE BATH OPERATOR Kami Dupont MD LAB BLOOD ORDERABLES Lulu l Result Performing Organization Address City/[facility] Co de Phone Number [facility] [place] [address] * POCT glucose (06/27/2024 8:39 PM LYE BATH OPERATOR) Glucose, POC 195 70 - 199 mg/dL Blood 06/27/2024 8:39 PM LYE BATH OPERATOR 06/27/2024 8:39 PM LYE BATH OPERATOR Kami Dupont MD LAB POCT ORDERABLES - DEV ICE Final Result Performing Organization Address [facility] [place] [address] * POCT glucose (06/27/2024 5:10 PM LYE BATH OPERATOR) Glucose, POC 194 70 - 199 mg/dL Blood 06/27/2024 5:10 PM LYE BATH OPERATOR 06/27/2024 5:10 PM LYE BATH OPERATOR Kami Dupont MD LAB POCT ORDERABLES - DEV ICE Final Result Performing Organization Address [facility] de Phone Number [facility] [place] [address] * (ABNORMAL) POCT glucose (06/27/2024 4:27 PM LYE BATH OPERATOR) Glucose, POC 224(H) 70 - 199 mg/dL Blood 06/27/2024 4:27 PM LYE BATH OPERATOR 06/27/2024 4:27 PM LYE BATH OPERATOR us Kami Dupont MD LAB POCT ORDERABLES - DEV ICE Final Result Performing Organization Address City/[facility] Co de Phone Number [facility] [place] [address] * POCT glucose (06/27/2024 1:06 PM LYE BATH OPERATOR) Glucose, POC 173 70 - 199 mg/dL Blood 06/27/2024 1:06 PM LYE BATH OPERATOR 06/27/2024 1:06 PM LYE BATH OPERATOR Kami Dupont MD LAB POCT ORDERABLES - DEV ICE Final Result Performing Organization Address City/[facility] de Phone Number [facility] [place] [address] * POCT glucose (06/27/2024 9:59 AM LYE BATH OPERATOR) Glucose, POC 158 70 - 199 mg/dL Blood 06/27/2024 9:59 AM LYE BATH OPERATOR 06/27/2024 9:59 AM LYE BATH OPERATOR Kami Dupont MD LAB POCT ORDERABLES - DEV ICE Final Result Performing Organization Address [facility] de Phone Number [facility] [place] [address] * eGFR (06/26/2024 10:21 PM LYE BATH OPERATOR) eGFR >90 >=60 mL/min/1. 73 m2 Comment: [...] reviewed 2021. Blood 06/26/2024 10:2 1 PM LYE BATH OPERATOR 06/26/2024 10:53 PM LYE BATH OPERATOR us Kami Dupont MD LAB BLOOD ORDERABLES Lulu brijesh Result [facility] One [facility] Department [place] [address] * Differential, auto (06/26/2024 10:21 PM LYE BATH OPERATOR) Neutrophil abs 5.0 1.5 - 6.5 K/cumm Imm gran abs 0.0 0.0 - 0.1 K/cumm [facility] Lymphocyte abs 2.4 0.8 - 3.3 K/cumm [facility] Monocyte abs 0.8 0.2 - 0.8 K/cumm [facility] Eosinophil abs 0.4 0.0 - 0.5 K/cumm [facility] Basophil abs 0.0 0.0 - 0.1 K/cumm [facility] Neutrophil pct 58.2 % [facility] Comment: Interpretive Data Percent cell count reference ranges are not reported, since discordance with absolute values may lead to misinterpretation of CBC data. Current Interpretive Data was last revised on 2017. Imm gran pct 0.3 % [facility] Comment: Interpretive Data Percent cell count reference ranges are not reported, since discordance with absolute values may lead to misinterpretation of CBC data. Current Interpretive Data was last revised on 2017. Lymphocyte pct 27.9 % [facility] Comment: Interpretive Data Percent cell count reference ranges are not reported, since discordance with absolute values may lead to misinterpretation of CBC data. Current Interpretive Data was last revised on 2017. Monocyte pct 9.2 % [facility] Comment: Interpretive Data Percent cell count reference ranges are not reported, since discordance with absolute values may lead to misinterpretation of CBC data. Current Interpretive Data was last revised on 2017. Eosinophil pct 4.1 % [facility] Comment: Interpretive Data Percent cell count reference ranges are not reported, since discordance with absolute values may lead to misinterpretation of CBC data. Current Interpretive Data was last revised on 2017. Basophil pct 0.3 % [facility] Comment: Interpretive Data Percent cell count reference ranges are not reported, since discordance with absolute values may lead to misinterpretation of CBC data. Current Interpretive Data was last revised on 2017. Blood 06/26/2024 10:2 1 PM LYE BATH OPERATOR 06/26/2024 10:53 PM LYE BATH OPERATOR Kami Dupont MD LAB BLOOD ORDERABLES Lulu coley Result [facility] Department [place] [address] * (ABNORMAL) CBC with auto differential (06/26/2024 10:21 PM LYE BATH OPERATOR) WBC 8.6 3.8 - 9.9 K/cumm Hgb 13.1 13.0 - 17.5 g/dL [facility] Hct 39.1 38.9 - 50.3 % [facility] Plt 173 150 - 400 K/cumm [facility] MPV 13.1(H) 9.1 - 12.3 fL [facility] RBC 4.07(L) 4.30 - 5.80 M/cumm [facility] MCV 96.1 81.3 - 96.4 fL [facility] MCH 32.2 27.1 - 33.3 pg [facility] MCHC 33.5 32.3 - 35.7 g/dL [facility] RDW CV 13.5 11.1 - 14.9 % [facility] RDW SD 47.8 35.7 - 48.1 fL [facility] NRBC abs 0.00 0.00 - 0.01 K/cumm [facility] Blood 06/26/2024 10:2 1 PM LYE BATH OPERATOR 06/26/2024 10:53 PM LYE BATH OPERATOR Kami Dupont MD LAB BLOOD ORDERABLES Lulu l Result [facility] [place] [address] * Hepatitis B Surface Antigen Blood (06/26/2024 10:21 PM LYE BATH OPERATOR) HepBsAg Nonreactive Nonreactive Blood 06/26/2024 10:2 1 PM LYE BATH OPERATOR 06/26/2024 10:53 PM LYE BATH OPERATOR Kami Dupont MD LAB MICROBIOLOGY - GENERA L ORDERABLES Final Result Performing Organization Address [facility] Co de Phone Number [facility] [place] [address] * (ABNORMAL) Phosphorus (06/26/2024 10:21 PM LYE BATH OPERATOR) Pathologist [facility] Phosphorus, pl <0.7(L) 2.3 - 4.5 mg/dL Comment:Repeated and Verifie d Blood 06/26/2024 10:2 1 PM LYE BATH OPERATOR 06/26/2024 10:53 PM LYE BATH OPERATOR Kami Dupont MD LAB BLOOD ORDERABLES Lulu l Result Performing Organization Address City/[facility]/ZIP Co de Phone Number [facility] [place] [address] * Magnesium (06/26/2024 10:21 PM LYE BATH OPERATOR) Pathologist [facility] Magnesium 2.0 1.4 - 2.5 mg/dL Blood 06/26/2024 10:2 1 PM LYE BATH OPERATOR 06/26/2024 10:53 PM LYE BATH OPERATOR Kami Dupont MD LAB BLOOD ORDERABLES Lulu l Result [facility] [place] [address] * (ABNORMAL) Basic metabolic panel (06/26/2024 10:21 PM LYE BATH OPERATOR) Pathologist [facility] Sodium 141 135 - 145 mmol/L Potassium, pl 4.7 3.3 - 4.9 mmol/L [facility] Chloride 106 97 - 110 mmol/L [facility] CO2 28 22 - 32 mmol/L [facility] Anion gap 7 2 - 15 mmol/L [facility] BUN 11 6 - 25 mg/dL [facility] Creatinine 0.47(L) 0.80 - 1.30 mg/dL [facility] Glucose 213(H) 70 - 199 mg/dL [facility] Comment: Interpretive Data Fasting glucose >/= [...] 2022. Calcium 9.3 8.5 - 10.3 mg/dL [facility] Blood 06/26/2024 10:2 1 PM LYE BATH OPERATOR 06/26/2024 10:53 PM LYE BATH OPERATOR us Kami Dupont MD LAB BLOOD ORDERABLES Lulu coley Result [facility] One [facility] [place] [address] * HIV 1/2 Antibody plus p24 Antigen Blood (06/26/2024 3:21 PM LYE BATH OPERATOR) Pathologist [facility] HIV 1/2 ab + p24 ag Nonreactive Nonreactive Comment:Nonreactive for HIV- 1 antigen and HIV-1/HIV-2 antibodies. No laboratory evidence of HIV infection. If acute HIV infection is suspected, consider testing for HIV-1 RNA. Current interpretive data was last revised on 22. Blood 06/26/2024 3:21 PM LYE BATH OPERATOR 06/26/2024 3:41 PM LYE BATH OPERATOR Kami Dupont MD LAB MICROBIOLOGY - GENERA L ORDERABLES Final Result Performing Organization Address [facility] de Phone Number [facility] [place] [address] * Hepatitis C antibody Blood (06/26/2024 3:21 PM LYE BATH OPERATOR) Hep C Ab Nonreactive Nonreactive Comment:Antibodies to HCV no t detected. Does NOT exclude the possibility of recent exposure to HCV. Current interpretive data was last revised on 22 Blood 06/26/2024 3:21 PM LYE BATH OPERATOR 06/26/2024 3:41 PM LYE BATH OPERATOR Kami Dupont MD LAB MICROBIOLOGY - GENERA L ORDERABLES Final Result Performing Organization Address [facility] de Phone Number [facility] [place] [address] * RPR Blood (06/26/2024 3:21 PM LYE BATH OPERATOR) RPR Nonreactive Nonreactive Blood 06/26/2024 3:21 PM LYE BATH OPERATOR 06/26/2024 3:41 PM LYE BATH OPERATOR Kami Dupont MD LAB MICROBIOLOGY - GENERA L ORDERABLES Final Result Performing Organization Address [facility] de Phone Number [facility] [place] [address] * (ABNORMAL) Phosphorus (06/26/2024 3:21 PM LYE BATH OPERATOR) Phosphorus, pl 0.7(L) 2.3 - 4.5 mg/dL Comment:Repeated and Verifie d Blood 06/26/2024 3:21 PM LYE BATH OPERATOR 06/26/2024 3:41 PM LYE BATH OPERATOR us Kami Dupont MD LAB BLOOD ORDERABLES Lulu l Result Performing Organization Address City/[facility] Co de Phone Number [facility] Department [place] [address] * eGFR (06/26/2024 12:16 AM LYE BATH OPERATOR) eGFR >90 >=60 mL/min/1. 73 m2 Comment: [...] reviewed 2021. Blood 06/26/2024 12:1 6 AM LYE BATH OPERATOR 06/26/2024 12:39 AM LYE BATH OPERATOR us Patricia Bryant MD LAB BLOOD ORDERABLES Final Res ult Performing Organization Address [facility]/ZIP Co de Phone Number [facility] Department [place] [address] * (ABNORMAL) Phosphorus (06/26/2024 12:16 AM LYE BATH OPERATOR) Phosphorus, pl <0.7(L) 2.3 - 4.5 mg/dL Comment:Repeated and Verifie d Blood 06/26/2024 12:1 6 AM LYE BATH OPERATOR 06/26/2024 12:39 AM LYE BATH OPERATOR Patricia Bryant MD LAB BLOOD ORDERABLES Final Res ult Performing Organization Address City/[facility] Co de Phone Number [facility] [place] [address] * Magnesium (06/26/2024 12:16 AM LYE BATH OPERATOR) [facility] Magnesium 1.9 1.4 - 2.5 mg/dL Blood 06/26/2024 12:1 6 AM LYE BATH OPERATOR 06/26/2024 12:39 AM LYE BATH OPERATOR Patricia Bryant MD LAB BLOOD ORDERABLES Final Res ult Performing Organization Address [facility] de Phone Number [facility] [place] [address] * (ABNORMAL) Basic metabolic panel (06/26/2024 12:16 AM LYE BATH OPERATOR) [facility] Sodium 142 135 - 145 mmol/L Potassium, pl 4.4 3.3 - 4.9 mmol/L [facility] Comment:Hemolyzed; Potassium value may be falsely elevated by as much as 0.3-0.5 mmol/L. Suggest redraw and reanalysis. Chloride 109 97 - 110 mmol/L [facility] CO2 29 22 - 32 mmol/L [facility] Anion gap 4 2 - 15 mmol/L [facility] BUN 13 6 - 25 mg/dL [facility] Creatinine 0.53(L) 0.80 - 1.30 mg/dL [facility] Glucose 177 70 - 199 mg/dL [facility] Comment: Interpretive Data Fasting glucose >/= [...] 2022. Calcium 9.0 8.5 - 10.3 mg/dL [facility] Blood 06/26/2024 12:1 6 AM LYE BATH OPERATOR 06/26/2024 12:39 AM LYE BATH OPERATOR Patricia Bryant MD LAB BLOOD ORDERABLES Final Res ult Performing Organization Address City/[facility]/ZIP Co de Phone Number [facility] [place] [address] * POCT glucose (06/23/2024 11:36 AM LYE BATH OPERATOR) Pathologist [facility] Glucose, POC 95 70 - 199 mg/dL Blood 06/23/2024 11:3 6 AM LYE BATH OPERATOR 06/23/2024 11:36 AM LYE BATH OPERATOR Result [facility] Patricia Bryant MD LAB POCT ORDERABLES - DEVICE F inal Result Performing Organization Address [facility] de Phone Number [facility] [place] [address] * (ABNORMAL) CBC without differential (06/23/2024 9:07 AM LYE BATH OPERATOR) [facility] WBC 4.7 3.8 - 9.9 K/cumm Hgb 12.5(L) 13.0 - 17.5 g/dL [facility] Hct 37.4(L) 38.9 - 50.3 % [facility] Plt 145(L) 150 - 400 K/cumm [facility] MPV 12.6(H) 9.1 - 12.3 fL [facility] RBC 3.94(L) 4.30 - 5.80 M/cumm [facility] MCV 94.9 81.3 - 96.4 fL [facility] MCH 31.7 27.1 - 33.3 pg [facility] MCHC 33.4 32.3 - 35.7 g/dL [facility] RDW CV 12.9 11.1 - 14.9 % [facility] RDW SD 45.1 35.7 - 48.1 fL [facility] NRBC abs 0.00 0.00 - 0.01 K/cumm [facility] Blood 06/23/2024 9:07 AM LYE BATH OPERATOR 06/23/2024 9:28 AM LYE BATH OPERATOR Patricia Bryant MD LAB BLOOD ORDERABLES Final Res ult [facility] [place] [address] * eGFR (06/23/2024 9:00 AM LYE BATH OPERATOR) eGFR >90 >=60 mL/min/1. 73 m2 Comment: [...] last reviewed 2021. Blood 06/23/2024 9:00 AM LYE BATH OPERATOR 06/23/2024 10:59 AM LYE BATH OPERATOR Patricia Bryant MD LAB BLOOD ORDERABLES Final Res ult [facility] [place] [address] * Phosphorus (06/23/2024 9:00 AM LYE BATH OPERATOR) Pathologist [facility] Phosphorus, pl 2.3 2.3 - 4.5 mg/dL Blood 06/23/2024 9:00 AM LYE BATH OPERATOR 06/23/2024 10:59 AM LYE BATH OPERATOR Patricia Bryant MD LAB BLOOD ORDERABLES Final Res ult Performing Organization Address City/[facility] Co de Phone Number [facility] Department [place] [address] * Magnesium (06/23/2024 9:00 AM LYE BATH OPERATOR) [facility] Magnesium 1.7 1.4 - 2.5 mg/dL Blood 06/23/2024 9:00 AM LYE BATH OPERATOR 06/23/2024 10:59 AM LYE BATH OPERATOR Patricia Bryant MD LAB BLOOD ORDERABLES Final Res ult Performing Organization Address [facility] Co de Phone Number [facility] [place] [address] * Vancomycin level trough (06/23/2024 9:00 AM LYE BATH OPERATOR) [facility] Vancomycin trough 15.2 10.0 - 20.0 mcg/mL Blood 06/23/2024 9:00 AM LYE BATH OPERATOR 06/23/2024 10:59 AM LYE BATH OPERATOR Result [facility] Patricia Bryant MD LAB BLOOD ORDERABLES Final Res ult Performing Organization Address City/[facility] [place] [address] * (ABNORMAL) Basic metabolic panel (06/23/2024 9:00 AM LYE BATH OPERATOR) Pathologist [facility] Sodium 143 135 - 145 mmol/L Potassium, pl 3.7 3.3 - 4.9 mmol/L [facility] Chloride 108 97 - 110 mmol/L [facility] CO2 28 22 - 32 mmol/L [facility] Anion gap 7 2 - 15 mmol/L [facility] BUN 3(L) 6 - 25 mg/dL [facility] Creatinine 0.50(L) 0.80 - 1.30 mg/dL [facility] Glucose 271(H) 70 - 199 mg/dL [facility] Comment: Interpretive Data Fasting glucose >/= [...] 2022. Calcium 9.0 8.5 - 10.3 mg/dL [facility] Blood 06/23/2024 9:00 AM LYE BATH OPERATOR 06/23/2024 10:59 AM LYE BATH OPERATOR us Patricia Bryant MD LAB BLOOD ORDERABLES Final Res ult [facility] One [facility] Department [place] [address] * IR G To GJ-Tube Replacement (06/22/2024 1:24 PM LYE BATH OPERATOR) Anatomical Region Laterality Modality Body N/A X-Ray Angiograph y 06/22/2024 1:47 PM LYE BATH OPERATOR Impressions 06/22/2024 4:13 PM LYE BATH OPERATOR Successful percutaneous 18 Fr 45 cm gastrojejunostomy [...] Sean Hillman M.D. Narrative 06/22/2024 4:13 PM LYE BATH OPERATOR EXAMINATION: GASTROJEJUNOSTOMY TUBE EXCHANGE HISTORY/INDICATION: 64 yo [...] procedure. TECHNIQUE: Prior to beginning the procedure, [place] Protocol was performed to confirm the patient's [...] placed in the proximal jejunum. A 18 Tongan, 45 cm long JELLY single/double lumen gastrojejunostomy [...] procedure. TECHNIQUE: Prior to beginning the procedure, [place] Protocol was performed to confirm the patient's [...] placed in the proximal jejunum. A 18 Tongan, 45 cm long JELLY single/double lumen gastrojejunostomy [...] by: Sean Hillman M.D. Patricia Bryant MD [facility] IR PROCEDURES Final Result * C. difficile testing Stool (06/21/2024 11:11 AM LYE BATH OPERATOR) [facility] Result Negative Negative Toxin Result Negative Negative [facility] C. diff result Negative, free toxin Negative, free toxin [facility] C. diff interp Negative for toxigenic Clostridioides (Clostridium) difficile. Analysis was performed using a glutamate dehydrogenase antigen detection assay combined with a C. difficile toxin detection assay. [facility] Stool 06/21/2024 11:1 1 AM LYE BATH OPERATOR 06/21/2024 12:55 PM LYE BATH OPERATOR Narrative [facility] - 06/21/2024 2:38 PM LYE BATH OPERATOR Testing for C. difficile is not recommended within 4 days of a negative result, 10 days of a positive, or 24 hours after laxative administration. If this order is clinically indicated, contact the lab and enter the passcode to complete this order.->[id number] Patricia Bryant MD LAB MICROBIOLOGY - GENERAL ORD ERABLES Final Result Performing Organization Address [facility] Co de Phone Number [facility] [place] [address] * Infection Prevention VRE Culture Stool (06/21/2024 11:10 AM LYE BATH OPERATOR) Report Final Report: Negative Stool 06/21/2024 11:1 0 AM LYE BATH OPERATOR 06/21/2024 2:41 PM LYE BATH OPERATOR Narrative [facility] 06/23/2024 11:15 PM LYE BATH OPERATOR Surveillance culture for Infection Prevention purposes only; results indicate colonization, not infection requiring treatment. Testing performed by [facility] ([phone]). Patricia Bryant MD LAB MICROBIOLOGY - GENERAL ORD ERABLES Final Result Performing Organization Address [facility] [place] [address] * Vancomycin level trough Draw trough 30 minutes prior to 4th dose. (06/21/2024 7:16 AM LYE BATH OPERATOR) Vancomycin trough 16.8 10.0 - 20.0 mcg/mL Blood 06/21/2024 7:16 AM LYE BATH OPERATOR 06/21/2024 7:27 AM LYE BATH OPERATOR Narrative [facility] 06/21/2024 8:10 AM LYE BATH OPERATOR Draw trough 30 minutes prior to 4th dose. Patricia Bryant MD LAB BLOOD ORDERABLES Final Res ult Performing Organization Address [facility] Co de Phone Number [facility] [place] [address] * eGFR (06/21/2024 5:03 AM LYE BATH OPERATOR) Pathologist [facility] eGFR >90 >=60 mL/min/1. 73 m2 [...] last reviewed 2021. Blood 06/21/2024 5:03 AM LYE BATH OPERATOR 06/21/2024 5:14 AM LYE BATH OPERATOR us Patricia Bryant MD LAB BLOOD ORDERABLES Final Res ult [facility] One [facility] Department [place] [address] * Differential, auto (06/21/2024 5:03 AM LYE BATH OPERATOR) [facility] Neutrophil abs 1.7 1.5 - 6.5 K/cumm Imm gran abs 0.0 0.0 - 0.1 K/cumm [facility] Lymphocyte abs 1.7 0.8 - 3.3 K/cumm [facility] Monocyte abs 0.6 0.2 - 0.8 K/cumm [facility] Eosinophil abs 0.3 0.0 - 0.5 K/cumm [facility] Basophil abs 0.0 0.0 - 0.1 K/cumm [facility] Neutrophil pct 38.8 % [facility] Comment: Interpretive Data Percent cell count reference ranges are not reported, since discordance with absolute values may lead to misinterpretation of CBC data. Current Interpretive Data was last revised on 2017. Imm gran pct 0.2 % [facility] Comment: Interpretive Data Percent cell count reference ranges are not reported, since discordance with absolute values may lead to misinterpretation of CBC data. Current Interpretive Data was last revised on 2017. Lymphocyte pct 40.5 % [facility] Comment: Interpretive Data Percent cell count reference ranges are not reported, since discordance with absolute values may lead to misinterpretation of CBC data. Current Interpretive Data was last revised on 2017. Monocyte pct 13.4 % [facility] Comment: Interpretive Data Percent cell count reference ranges are not reported, since discordance with absolute values may lead to misinterpretation of CBC data. Current Interpretive Data was last revised on 2017. Eosinophil pct 6.6 % [facility] Comment: Interpretive Data Percent cell count reference ranges are not reported, since discordance with absolute values may lead to misinterpretation of CBC data. Current Interpretive Data was last revised on 2017. Basophil pct 0.5 % [facility] Comment: Interpretive Data Percent cell count reference ranges are not reported, since discordance with absolute values may lead to misinterpretation of CBC data. Current Interpretive Data was last revised on 2017. Blood 06/21/2024 5:03 AM LYE BATH OPERATOR 06/21/2024 5:14 AM LYE BATH OPERATOR us Patricia Bryant MD LAB BLOOD ORDERABLES Final Res ult [facility] One [facility] Department of Laboratories [place], [place] [id number] * (ABNORMAL) CBC with auto differential (06/21/2024 5:03 AM LYE BATH OPERATOR) WBC 4.3 3.8 - 9.9 K/cumm Hgb 11.6(L) 13.0 - 17.5 g/dL [facility] Hct 34.5(L) 38.9 - 50.3 % [facility] Plt 132(L) 150 - 400 K/cumm [facility] MPV 11.3 9.1 - 12.3 fL [facility] RBC 3.53(L) 4.30 - 5.80 M/cumm [facility] MCV 97.7(H) 81.3 - 96.4 fL [facility] MCH 32.9 27.1 - 33.3 pg [facility] MCHC 33.6 32.3 - 35.7 g/dL [facility] RDW CV 13.4 11.1 - 14.9 % [facility] RDW SD 48.0 35.7 - 48.1 fL [facility] NRBC abs 0.00 0.00 - 0.01 K/cumm [facility] Blood 06/21/2024 5:03 AM LYE BATH OPERATOR 06/21/2024 5:14 AM LYE BATH OPERATOR Patricia Bryant MD LAB BLOOD ORDERABLES Final Res ult Performing Organization Address City/[facility]/ZIP Co de Phone Number [facility] Department [place] [address] * Phosphorus (06/21/2024 5:03 AM LYE BATH OPERATOR) Phosphorus, pl 3.1 2.3 - 4.5 mg/dL Blood 06/21/2024 5:03 AM LYE BATH OPERATOR 06/21/2024 5:14 AM LYE BATH OPERATOR us Patricia Bryant MD LAB BLOOD ORDERABLES Final Res ult [facility] [place] [address] * Magnesium (06/21/2024 5:03 AM LYE BATH OPERATOR) Pathologist [facility] Magnesium 1.9 1.4 - 2.5 mg/dL Blood 06/21/2024 5:03 AM LYE BATH OPERATOR 06/21/2024 5:14 AM LYE BATH OPERATOR us Patricia Bryant MD LAB BLOOD ORDERABLES Final Res ult [facility] One [facility] Department [place] [address] * (ABNORMAL) Comprehensive metabolic panel (06/21/2024 5:03 AM LYE BATH OPERATOR) Sodium 145 135 - 145 mmol/L Potassium, pl 3.4 3.3 - 4.9 mmol/L [facility] Chloride 112(H) 97 - 110 mmol/L [facility] CO2 27 22 - 32 mmol/L [facility] Anion gap 6 2 - 15 mmol/L [facility] BUN 9 6 - 25 mg/dL [facility] Creatinine 0.57(L) 0.80 - 1.30 mg/dL [facility] Glucose 106 70 - 199 mg/dL [facility] Comment: Interpretive Data Fasting glucose >/= [...] 2022. Calcium 8.6 8.5 - 10.3 mg/dL [facility] Bilirubin, total 0.2 0.1 - 1.2 mg/dL [facility] Protein, pl 5.6(L) 6.5 - 8.5 g/dL [facility] Albumin 2.7(L) 3.5 - 5.0 g/dL [facility] Alk phos 61 40 - 130 Units/L [facility] ALT 15 7 - 55 Units/L [facility] AST 25 10 - 50 Units/L [facility] Blood 06/21/2024 5:03 AM LYE BATH OPERATOR 06/21/2024 5:14 AM LYE BATH OPERATOR Patricia Bryant MD LAB BLOOD ORDERABLES Final Res ult Performing Organization Address [facility] Co de Phone Number [facility] Department [place] [address] * (ABNORMAL) MSSA/MRSA (Staphylococcus aureus) Culture Nasal (06/20/2024 10:30 PM LYE BATH OPERATOR) Report Final Report: 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 Patricia Bryant MD LAB MICROBIOLOGY - GENERAL ORD ERABLES Final Result Performing Organization Address [facility] Co de Phone Number [facility] Department [place] [address] * XR Abdomen Ap 1 Vw (06/20/2024 10:29 AM LYE BATH OPERATOR) Anatomical Region Laterality Modality Body, Abdomen N/A Computed Radiogr aphy 06/20/2024 10:5 3 AM LYE BATH OPERATOR Impressions 06/20/2024 11:51 AM LYE BATH OPERATOR Gastrostomy tube. Colonic distention is improved. No radiographic evidence of obstruction. Dictated by: Hunter Hernandez M.D (Ramanan). The radiology attending physician has personally reviewed this study, and had reviewed and/or edited this written report and agrees with it. Electronically signed by: Byron Moya M.D. Narrative 06/20/2024 11:51 AM LYE BATH OPERATOR EXAMINATION: Abdomen, one view. HISTORY: Abdominal distention. [...] and culture Urine, bladder (06/19/2024 9:34 PM LYE BATH OPERATOR) Color, ur Straw Yellow Clarity, ur Clear Clear [facility] Specific gravity, ur 1.021 1.003 - 1.030 [facility] pH, urine 7.0 [facility] Comment: Interpretive Data U rine pH is affected by diet, medications, systemic acid-base disturbances, and renal tubular function. pH may affect urinary stone formation. For example, urine pH below 6.0 may help reduce the tendency for calcium phosphate stones and pH greater than 6.0 may reduce the tendency for uric acid stone formation. Source: [place] [employer] Current Interpretive Data was last revised on 2017 Protein, ur ql 1+(A) Negative [facility] Glucose, ur ql Negative Negative [facility] Ketones, ur Negative Negative [facility] Bilirubin, ur Negative Negative [facility] Blood, ur Negative Negative [facility] Urobilinogen, ur <2.0 <2.0 mg/dL [facility] Nitrite, ur Negative Negative [facility] Leukocyte esterase, ur Negative Negative [facility] UA reflex comment Reflex to microscopic UA will be performed. [facility] Urine, bladder 06/19/2024 9: 34 PM LYE BATH OPERATOR 06/19/2024 10:05 PM LYE BATH OPERATOR Patricia Bryant MD LAB MICROBIOLOGY - GENERAL ORD ERABLES Final Result [facility] Department [place] [address] * Urinalysis, microscopic only (06/19/2024 9:34 PM LYE BATH OPERATOR) WBC, ur 0-5 0 - 5 /HPF RBC, ur 0-2 0 - 2 /HPF [facility] Epithelial cells, squamous, ur 1-5 0 - 5 /HPF [facility] Culture Reflex Comment Reflex conditions for urine culture (WBC >10) not met. [facility] Urine, bladder 06/19/2024 9: 34 PM LYE BATH OPERATOR 06/19/2024 10:05 PM LYE BATH OPERATOR Patricia Bryant MD LAB URINE ORDERABLES Final Res ult Performing Organization Address [facility] de Phone Number [facility] Department [place] [address] * (ABNORMAL) Differential, auto (06/19/2024 9:28 PM LYE BATH OPERATOR) Pathologist [facility] Neutrophil abs 6.0 1.5 - 6.5 K/cumm Imm gran abs 0.0 0.0 - 0.1 K/cumm [facility] Lymphocyte abs 0.7(L) 0.8 - 3.3 K/cumm [facility] Monocyte abs 0.2 0.2 - 0.8 K/cumm [facility] Eosinophil abs 0.2 0.0 - 0.5 K/cumm [facility] Basophil abs 0.0 0.0 - 0.1 K/cumm [facility] Neutrophil pct 84.1 % [facility] Comment: Interpretive Data Percent cell count reference ranges are not reported, since discordance with absolute values may lead to misinterpretation of CBC data. Current Interpretive Data was last revised on 2017. Imm gran pct 0.4 % [facility] Comment: Interpretive Data Percent cell count reference ranges are not reported, since discordance with absolute values may lead to misinterpretation of CBC data. Current Interpretive Data was last revised on 2017. Lymphocyte pct 10.1 % [facility] Comment: Interpretive Data Percent cell count reference ranges are not reported, since discordance with absolute values may lead to misinterpretation of CBC data. Current Interpretive Data was last revised on 2017. Monocyte pct 2.9 % [facility] Comment: Interpretive Data Percent cell count reference ranges are not reported, since discordance with absolute values may lead to misinterpretation of CBC data. Current Interpretive Data was last revised on 2017. Eosinophil pct 2.4 % [facility] Comment: Interpretive Data Percent cell count reference ranges are not reported, since discordance with absolute values may lead to misinterpretation of CBC data. Current Interpretive Data was last revised on 2017. Basophil pct 0.1 % [facility] Comment: Interpretive Data Percent cell count reference ranges are not reported, since discordance with absolute values may lead to misinterpretation of CBC data. Current Interpretive Data was last revised on 2017. Blood 06/19/2024 9:28 PM LYE BATH OPERATOR 06/19/2024 10:38 PM LYE BATH OPERATOR us Patricia Bryant MD LAB BLOOD ORDERABLES Final Res ult [facility] One [facility] [place] [address] * Lacosamide level (06/19/2024 9:28 PM LYE BATH OPERATOR) Lacosamide 9.6 1.0 - 10.0 mcg/mL [facility] Comment: ADDITIONAL INFORMATION This test was developed and its performance characteristics determined by [facility] in a manner consistent with CLIA requirements. This test has not been cleared or approved by the U.S. Food and Drug Administration. Test Performed by: [facility] - [address] [address] [employer] Assistant: Marianela Odonnell Ph.D.; CLIA# [id number] Blood 06/19/2024 9:28 PM LYE BATH OPERATOR 06/19/2024 11:01 PM LYE BATH OPERATOR Narrative [facility] - 06/22/2024 10:25 AM LYE BATH OPERATOR Please get level before lacosamide dose is given Patricia Bryant MD LAB BLOOD ORDERABLES Final Res ult Performing Organization Address City/[facility] Co de Phone Number [facility] Department [place] [address] [facility] * (ABNORMAL) CBC with auto differential (06/19/2024 9:28 PM LYE BATH OPERATOR) [facility] WBC 7.1 3.8 - 9.9 K/cumm Hgb 12.5(L) 13.0 - 17.5 g/dL [facility] Hct 37.0(L) 38.9 - 50.3 % [facility] Plt 152 150 - 400 K/cumm [facility] MPV 12.6(H) 9.1 - 12.3 fL [facility] RBC 3.90(L) 4.30 - 5.80 M/cumm [facility] MCV 94.9 81.3 - 96.4 fL [facility] MCH 32.1 27.1 - 33.3 pg [facility] MCHC 33.8 32.3 - 35.7 g/dL [facility] RDW CV 13.4 11.1 - 14.9 % [facility] RDW SD 46.8 35.7 - 48.1 fL [facility] NRBC abs 0.00 0.00 - 0.01 K/cumm [facility] Blood 06/19/2024 9:28 PM LYE BATH OPERATOR 06/19/2024 10:38 PM LYE BATH OPERATOR Patricia Bryant MD LAB BLOOD ORDERABLES Final Res ult Performing Organization Address City/[facility]/ZIP Co de Phone Number [facility] Department [place] [address] * Valproic acid level, total (06/19/2024 9:28 PM LYE BATH OPERATOR) [facility] Valproic Acid 76.0 50.0 - 100.0 mcg/mL Comment: Interpretive Data Therapeutic or toxic effects of anticonvulsant drugs may occur at different concentrations in different patients and the correlation between dose and clinical effect must be evaluated individually. Current interpretative data was last revised on 13. Blood 06/19/2024 9:28 PM LYE BATH OPERATOR 06/19/2024 10:39 PM LYE BATH OPERATOR Narrative [facility] - 06/19/2024 11:40 PM LYE BATH OPERATOR Please get level before dose is given us Patricia Bryant MD LAB BLOOD ORDERABLES Final Res ult [facility] One [facility] Department [place] [address] * Respiratory pathogen panel Nasopharyngeal (06/19/2024 9:10 PM LYE BATH OPERATOR) [facility] Influenza A RNA Not Detected Not Detected Influenza B RNA Not Detected Not Detected [facility] RSV RNA Not Detected Not Detected [facility] COVID-19 RNA Not Detected Not Detected [facility] Coronavirus 229E RNA Not Detected Not Detected [facility] Coronavirus HKU1 RNA Not Detected Not Detected [facility] Coronavirus NL63 RNA Not Detected Not Detected [facility] Coronavirus OC43 RNA Not Detected Not Detected [facility] Adenovirus DNA Not Detected Not Detected [facility] Metapneumovirus RNA Not Detected Not Detected [facility] Rhinovirus/Enterov irus RNA Not Detected Not Detected [facility] Parainfluenza 1 RNA Not Detected Not Detected [facility] Parainfluenza 2 RNA Not Detected Not Detected [facility] Parainfluenza 3 RNA Not Detected Not Detected [facility] Parainfluenza 4 RNA Not Detected Not Detected [facility] B. pertussis DNA Not Detected Not Detected [facility] B. parapertussis DNA Not Detected Not Detected [facility] C. pneumoniae DNA Not Detected Not Detected [facility] M. pneumoniae DNA Not Detected Not Detected [facility] Nasopharyngeal 06/19/2024 9: 10 PM LYE BATH OPERATOR 06/19/2024 10:06 PM LYE BATH OPERATOR Katey BARNES [facility] - 06/19/2024 11:35 PM LYE BATH OPERATOR Is the Patient experiencing symptoms consistent with COVID?->Yes Surveillance testing for transplant patient?->No Interpretive Data [employer] Respiratory Panel (RP2.1) assay is a [...] assay has FDA clearance for testing of [employer]AT [employer]ER swabs. The performance of additional specimen types has been assessed by the performing laboratory. The performance characteristics of this assay have been determined by [facility]. Current interpretive data was last revised on 22. Patricia Bryant MD LAB MICROBIOLOGY - GENERAL ORD ERABLES Final Result Performing Organization Address City/[facility]/ZIP Co de Phone Number [facility] Department [place] [address] * (ABNORMAL) Aerobic culture and gram stain Tracheal aspirate Tracheal (06/19/2024 6:53 PM LYE BATH OPERATOR) Direct Specimen Exam Stain: Abundant polymorphonuclear leukocytes seen. Few squamous epithelial cells seen. Moderate mixed bacterial domenico seen on Gram stain. Report Final Report: Greater than or equal to 100,000 colonies/ml of Staphylococcus aureus Methicillin resistant (MRSA) by penicillin binding protein 2a (PBP2a) testing. Plus growth of clinically insignificant bacterial domenico. (.) [facility] Organism STAPHYLOCOCCUS AUREUS [facility] Organism PLUS GROWTH OF CLINICALLY INSIGNIFICANT DOMENICO. [facility] Tracheal aspirate (Tracheal) 06/19/2024 6:53 PM LYE BATH OPERATOR 06/19/2024 8:18 PM LYE BATH OPERATOR Narrative [facility] - 06/27/2024 2:52 PM LYE BATH OPERATOR Testing performed by [facility] ([phone]) Specimens submitted from normally sterile body sites [...] ORD ERABLES Final Result Performing Organization Address City/[facility] [facility]/ZIP Co de Phone Number CAMERON HURTADO [facility] Department [place] [address] * XR Chest 1 View (06/19/2024 6:47 PM LYE BATH OPERATOR) Anatomical Region Laterality Modality Body, Chest N/A Digital Radiogra phy 06/20/2024 2:42 PM LYE BATH OPERATOR Impressions 06/20/2024 3:15 PM LYE BATH OPERATOR Comparison is made to 06/19/2024 at 3:32 [...] Herve Payne M.D. Narrative 06/20/2024 3:15 PM LYE BATH OPERATOR EXAMINATION: 1 view chest radiograph Procedure Note [...] pathogen panel Tracheal aspirate (06/19/2024 6:46 PM LYE BATH OPERATOR) Influenza A RNA Not Detected Not Detected Influenza B RNA Not Detected Not Detected [facility] RSV RNA Not Detected Not Detected [facility] COVID-19 RNA Not Detected Not Detected [facility] Coronavirus 229E RNA Not Detected Not Detected [facility] Coronavirus HKU1 RNA Not Detected Not Detected [facility] Coronavirus NL63 RNA Not Detected Not Detected [facility] Coronavirus OC43 RNA Not Detected Not Detected [facility] Adenovirus DNA Not Detected Not Detected [facility] Metapneumovirus RNA Not Detected Not Detected [facility] Rhinovirus/Enterov irus RNA Not Detected Not Detected [facility] Parainfluenza 1 RNA Not Detected Not Detected [facility] Parainfluenza 2 RNA Not Detected Not Detected [facility] Parainfluenza 3 RNA Not Detected Not Detected [facility] Parainfluenza 4 RNA Not Detected Not Detected [facility] B. pertussis DNA Not Detected Not Detected [facility] B. parapertussis DNA Not Detected Not Detected [facility] C. pneumoniae DNA Not Detected Not Detected [facility] M. pneumoniae DNA Not Detected Not Detected [facility] Tracheal aspirate 06/19/2024 6:46 PM LYE BATH OPERATOR 06/20/2024 7:55 AM LYE BATH OPERATOR Narrative [facility] - 06/20/2024 8:58 AM LYE BATH OPERATOR Is the Patient experiencing symptoms consistent with COVID?->Yes Surveillance testing for transplant patient?->No Interpretive Data [employer] Film[employer] Respiratory Panel (RP2.1) assay is a [...] assay has FDA clearance for testing of BOAT CLEANER swabs. The performance of additional specimen types has been assessed by the performing laboratory. The performance characteristics of this assay have been determined by [facility]. Current interpretive data was last revised on 22. Patricia Bryant MD LAB MICROBIOLOGY - GENERAL ORD ERABLES Final Result [facility] Department [place] [address] * XR Abdomen Ap 1 Vw (06/19/2024 4:09 PM LYE BATH OPERATOR) Anatomical Region Laterality Modality Body, Abdomen N/A Digital Radiogra phy 06/19/2024 4:35 PM LYE BATH OPERATOR Impressions 06/19/2024 5:03 PM LYE BATH OPERATOR Diffuse mild gaseous bowel distention, similar to the prior exam and could represent ileus. Partially imaged gastrostomy tube. Dictated by: Hunter Hernandez M.D. (Ramanan) The radiology attending physician has personally reviewed this study, and had reviewed and/or edited this written report and agrees with it. Electronically signed by: Lupillo Lugo M.D. Narrative 06/19/2024 5:03 PM LYE BATH OPERATOR EXAMINATION: Abdomen, one view. HISTORY: Abdominal pain [...] XR Chest 1 View (06/19/2024 4:08 PM LYE BATH OPERATOR) Anatomical Region Laterality Modality Body, Chest N/A Digital Radiogra phy 06/19/2024 4:21 PM LYE BATH OPERATOR Impressions 06/19/2024 4:21 PM LYE BATH OPERATOR The current study is compared with the [...] Elif Patel M.D. Narrative 06/19/2024 4:21 PM LYE BATH OPERATOR EXAMINATION: 1 view chest radiograph Procedure Note [...] Final Result * eGFR (06/19/2024 2:47 PM LYE BATH OPERATOR) Pathologist [facility] eGFR >90 >=60 mL/min/1. 73 m2 [...] last reviewed 2021. Blood 06/19/2024 2:47 PM LYE BATH OPERATOR 06/19/2024 3:03 PM LYE BATH OPERATOR Patricia Bryant MD LAB BLOOD ORDERABLES Final Res ult [facility] Department [place] [address] * Differential, auto (06/19/2024 2:47 PM LYE BATH OPERATOR) Pathologist [facility] Neutrophil abs 5.5 1.5 - 6.5 K/cumm Imm gran abs 0.0 0.0 - 0.1 K/cumm [facility] Lymphocyte abs 0.9 0.8 - 3.3 K/cumm [facility] Monocyte abs 0.2 0.2 - 0.8 K/cumm [facility] Eosinophil abs 0.3 0.0 - 0.5 K/cumm [facility] Basophil abs 0.0 0.0 - 0.1 K/cumm [facility] Neutrophil pct 79.8 % [facility] Comment: Interpretive Data Percent cell count reference ranges are not reported, since discordance with absolute values may lead to misinterpretation of CBC data. Current Interpretive Data was last revised on 2017. Imm gran pct 0.4 % [facility] Comment: Interpretive Data Percent cell count reference ranges are not reported, since discordance with absolute values may lead to misinterpretation of CBC data. Current Interpretive Data was last revised on 2017. Lymphocyte pct 13.4 % [facility] Comment: Interpretive Data Percent cell count reference ranges are not reported, since discordance with absolute values may lead to misinterpretation of CBC data. Current Interpretive Data was last revised on 2017. Monocyte pct 2.5 % [facility] Comment: Interpretive Data Percent cell count reference ranges are not reported, since discordance with absolute values may lead to misinterpretation of CBC data. Current Interpretive Data was last revised on 2017. Eosinophil pct 3.8 % [facility] Comment: Interpretive Data Percent cell count reference ranges are not reported, since discordance with absolute values may lead to misinterpretation of CBC data. Current Interpretive Data was last revised on 2017. Basophil pct 0.1 % [facility] Comment: Interpretive Data Percent cell count reference ranges are not reported, since discordance with absolute values may lead to misinterpretation of CBC data. Current Interpretive Data was last revised on 2017. Blood 06/19/2024 2:47 PM LYE BATH OPERATOR 06/19/2024 3:04 PM LYE BATH OPERATOR us Patricia Bryant MD LAB BLOOD ORDERABLES Final Res ult [facility] Department of Laboratories [place], [place] [id number] * (ABNORMAL) CBC with auto differential (06/19/2024 2:47 PM LYE BATH OPERATOR) WBC 6.9 3.8 - 9.9 K/cumm Hgb 14.2 13.0 - 17.5 g/dL [facility] Hct 42.4 38.9 - 50.3 % [facility] Plt 135(L) 150 - 400 K/cumm [facility] MPV 12.6(H) 9.1 - 12.3 fL [facility] RBC 4.47 4.30 - 5.80 M/cumm [facility] MCV 94.9 81.3 - 96.4 fL [facility] MCH 31.8 27.1 - 33.3 pg [facility] MCHC 33.5 32.3 - 35.7 g/dL [facility] RDW CV 13.2 11.1 - 14.9 % [facility] RDW SD 46.5 35.7 - 48.1 fL [facility] NRBC abs 0.00 0.00 - 0.01 K/cumm [facility] Blood 06/19/2024 2:47 PM LYE BATH OPERATOR 06/19/2024 3:04 PM LYE BATH OPERATOR Patricia Bryant MD LAB BLOOD ORDERABLES Final Res ult Performing Organization Address City/[facility]/ZIP Co de Phone Number [facility] Department [place] [address] * (ABNORMAL) Phosphorus (06/19/2024 2:47 PM LYE BATH OPERATOR) Phosphorus, pl 2.2(L) 2.3 - 4.5 mg/dL Blood 06/19/2024 2:47 PM LYE BATH OPERATOR 06/19/2024 3:03 PM LYE BATH OPERATOR Patricia Bryant MD LAB BLOOD ORDERABLES Final Res ult [facility] Department [place] [address] * Magnesium (06/19/2024 2:47 PM LYE BATH OPERATOR) Pathologist [facility] Magnesium 2.0 1.4 - 2.5 mg/dL Blood 06/19/2024 2:47 PM LYE BATH OPERATOR 06/19/2024 3:03 PM LYE BATH OPERATOR us Patricia Bryant MD LAB BLOOD ORDERABLES Final Res ult [facility] Department [place] [address] * (ABNORMAL) Comprehensive metabolic panel (06/19/2024 2:47 PM LYE BATH OPERATOR) Sodium 144 135 - 145 mmol/L Potassium, pl 3.9 3.3 - 4.9 mmol/L [facility] Comment:Hemolyzed; Potassium value may be falsely elevated by as much as 0.3-0.5 mmol/L. Suggest redraw and reanalysis. Chloride 105 97 - 110 mmol/L [facility] CO2 29 22 - 32 mmol/L [facility] Anion gap 10 2 - 15 mmol/L [facility] BUN 7 6 - 25 mg/dL [facility] Creatinine 0.62(L) 0.80 - 1.30 mg/dL [facility] Glucose 113 70 - 199 mg/dL [facility] Comment: Interpretive Data Fasting glucose >/= [...] 2022. Calcium 9.5 8.5 - 10.3 mg/dL [facility] Bilirubin, total 0.2 0.1 - 1.2 mg/dL [facility] Protein, pl 7.2 6.5 - 8.5 g/dL [facility] Albumin 3.7 3.5 - 5.0 g/dL [facility] Alk phos 91 40 - 130 Units/L [facility] ALT 13 7 - 55 Units/L [facility] AST 28 10 - 50 Units/L [facility] Comment:Hemolyzed; result ma y be falsely elevated Blood 06/19/2024 2:47 PM LYE BATH OPERATOR 06/19/2024 3:03 PM LYE BATH OPERATOR Patricia Bryant MD LAB BLOOD ORDERABLES Final Res ult Performing Organization Address City/[facility]/ZIP Co de Phone Number [facility] Department [place] [address] * POCT glucose (06/19/2024 2:25 PM LYE BATH OPERATOR) Glucose, POC 125 70 - 199 mg/dL Blood 06/19/2024 2:25 PM LYE BATH OPERATOR 06/19/2024 2:25 PM LYE BATH OPERATOR Result [facility] Patricia Bryant MD LAB POCT ORDERABLES - DEVICE F inal Result Performing Organization Address [facility] Co de Phone Number [facility] Department [place] [address] * TNI with LIPID PANEL (08/24/2017 4:57 PM CDT) Troponin I < 0.300 0.000 - 0.300 ng/mL Comment: Reference using JERRICA Chemiluminescence Negative: Repeat in 4-6 hours as indicated. Triglycerides 34 0 - 199 mg/dL Comment:12 hr pc highly avani mmended for Triglyceride Cholesterol 129 0 - 199 mg/dL Comment: Borderline: 200-239 High Risk: >239 HDL Cholesterol 71 mg/dL 8 5:30 PM [facility] HISTORICAL RESULTS Comment: Reference Ranges: Males: >=40 mg/dL Females: >=50 mg/dL LDL Cholesterol, Calc 51 0 - 130 mg/dL Comment:High Risk > 159 mg/d L Cholesterol/HDL Ratio 1.8 08/24/2017 5:30 PM CDT [facility] [employer] HISTORICAL RESULTS Comment: Cholesterol / HDL Ratio 3.5:1 or less is desirable. Cholesterol / HDL Ratio greater than 5:1 is considered higher risk for developing heart disease. 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 Source: [facility] [employer] 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 Source: [facility] [employer] 09/18/22 Acinetobacter os 09/18/[address] [facility] Advance Directives For more information, please contact: [phone] Documents on File Type Date Recorded Patient Naval Architect Expl anation ADVANCE DIRECTIVE 10/08/2012 12:00 AM [facility] [employer] * Full Code (Latest Code Status on File) Date Activated Date Inactivated Comments 06/12/2024 3:22 PM 06/28/2024 9:30 PM * Full Code Date Activated Date Inactivated Comments 12/10/2020 9:05 AM 12/13/2020 10:44 PM Care Teams Public Health Professor Relationship Specialty Start Date End Date Marielena Smallwood MD [address] [facility] [place] [address] PCP - General Family Practice 07/08/24
--- OUTSIDE RECORDS SUMMARY | 2024-09-17 11:18 | XMS_ITS | Encounter Summary ---
Author Organization [facility] Address [address] [place] [address] Care Team Providers Care Adjunct Art History Instructor Name Role Phone Frank Toure MD Unavailable Kayla Porras REGULATORY SERVICES CONSULTANT Primary Care Provider [phone] Misael Maradiaga DO Primary Care Provider [phone] Joyce Luevano REGULATORY SERVICES CONSULTANT Primary Care Provider Unavaila Marielena Adame MD Primary Care Provider [phone] Encounter Details Date Type Department Care Team (Latest Contact Info) Description 02/01/2018 Abstract [facility] Jerica Cordon [...] on filedocumented in this encounter Care Teams Adjunct Art History Instructor Relationship Specialty Start Date End Date Kayla Porras NP [address] [place] [address] PCP - General 06/25/16 09/27/18 Misael Maradiaga DO [address] [place] [address] PCP - General FAMILY PRACTICE 09/28/18 01/13/20 Joyce L[place] [address] PCP - General NURSE PRACTITIONER 01/14/20 10/26/23 Marielena Smallwood MD [address] [place] [address] PCP - General FAMILY PRACTICE 10/27/[address] [facility] [place] [address] Chivo Burn Nurse CARDIOVASCULAR DISEASE 05/30/16 documented as of this encounter
--- OUTSIDE RECORDS SUMMARY | 2024-09-17 11:18 | XMS_ITS | Data Portability ---
Demographics Address [address] [place] [address] Home Phone Mobile Phone Email Address Preferred Language en Marital Status Never Anabaptism Affiliation Unknown Race Black or Irma rican Ethnic Group Not or Lati no Author Organization [facility] Address [address] [place] [address] Assessment No assessment recorded. Plan of Treatment Reminders Order Date Submit Date Provider Last Modified By Organization Details Last Modified Time Details Appointments None recorded. Lab None recorded. Referral None recorded. Procedures None recorded. Surgeries None recorded. Imaging None recorded. Medication Orders ibuprofen 800 mg tablet 2015 016 [facility] [employer], [address] [place] [address], [id number], 6 18:35:08 Prozac 20 mg capsule 2014 015 [facility] [employer], [address] [place] [address], [id number], 5 16:10:15 tramadol 50 mg tablet 2014 015 [facility] [employer], [address] [place] [address], [id number], 5 12:13:56 Flomax 0.4 mg capsule 2014 015 [employer], [address] [place] [address], [id number], 5 16:10:16 Ambien 10 mg tablet 2014 015 [facility] 2 [employer], [facility], [address] [place] [address], [id number], 5 10:37:28 Patient TargetsNo targets recorded. Patient Instructions Encounter Date Encounter Id Patient Instructions Last Modified By Organization Details Last Modified Time 06/10/2014 [id number] stroke: care instructions Not available 06/21/2014 17:33:19 insomnia: care instructions Not available 06/21/2014 17:33:19 epilepsy: care instructions Not available 06/21/2014 17:33:19 09/18/2014 [id number] epilepsy: care instructions dsalmond Not available 09/18/2014 17:05:10 back care and preventing injuries: care instructions dsalmond Not available 09/18/2014 17:05:10 04/16/2015 [id number] epilepsy: care instructions campadu Not available 04/16/2015 16:05:30 06/12/2015 [id number] stroke: care instructions dsalmond Not available 06/13/2015 12:21:31 epilepsy: care instructions dsalmond Not available 06/13/2015 12:21:31 learning about high blood pressure dsalmond Not available 06/13/2015 12:21:31 Reason for Referral None Reported. Results Created Date Observation Date Name Description Value Unit Range Abnormal Flag Note LastModifiedBy Organization Detail LastModifiedTime 06/12/19 16 06/12/2015 CBC w/ auto diff WBC 5.9 K/uL 3.4-10 .8 Not Available [facility] (Lab) [address] [place], [address], 06/12/2015 19:52:35 06/12/19 16 06/12/2015 CBC w/ auto diff red blood count 4.6 M/uL 4.5-6. 3 Not Available [facility] (Lab) [address], [place], [address], 06/12/2015 19:52:35 06/12/19 16 06/12/2015 CBC w/ auto diff hemoglobin 14.7 g/dL 13.5-1 7.5 Not Available [facility] (Lab) [address] [place], [address], 06/12/2015 19:52:35 06/12/19 16 06/12/2015 CBC w/ auto diff hematocrit 44.5 % 40.0-5 2.0 Not Available [facility] (Lab) [address] [place], [address], 06/12/2015 19:52:35 06/12/19 16 06/12/2015 CBC w/ auto diff MCV 97 fL 80-95 high Not Available [facility] (Lab) [address] [place], [address], 06/12/2015 19:52:35 06/12/19 16 06/12/2015 CBC w/ auto diff MCH 32 pg 27-32 Not Available [facility] (Lab) [address] [place], [address], 06/12/2015 19:52:35 06/12/19 16 06/12/2015 CBC w/ auto diff MCHC 33 g/dL 32-36 Not Available [facility] (Lab) [address] [place], [address], 06/12/2015 19:52:35 06/12/19 16 06/12/2015 CBC w/ auto diff platelets 219 K/uL 155-37 9 Not Available [facility] (Lab) [address] [place], [address], 06/12/2015 19:52:35 06/12/19 16 06/12/2015 CBC w/ auto diff RDW 11.6 % 11.5-1 4.5 Not Available [facility] (Lab) [address] [place], [address], 06/12/2015 19:52:35 06/12/19 16 06/12/2015 CBC w/ auto diff MPV 11.1 fL 8.9-12 .7 Not Available [facility] (Lab) [address] [place], [address], 06/12/2015 19:52:35 06/12/19 16 06/12/2015 CBC w/ auto diff neutrophils absolute 2.5 K/uL 1.4-7. 0 Not Available [facility] (Lab) [address] [facility], [place], [address], 06/12/2015 19:52:35 06/12/19 16 06/12/2015 CBC w/ auto diff lymphs (absolute) 2.6 K/uL 0.7-3. 1 Not Available [facility] (Lab) [address] [facility], [place], [address], 06/12/2015 19:52:35 06/12/19 16 06/12/2015 CBC w/ auto diff monocytes (absolute) 0.5 K/uL 0.1-0. 9 Not Available [facility] (Lab) [address] [place], [address], 06/12/2015 19:52:35 06/12/19 16 06/12/2015 CBC w/ auto diff eos (absolute) 0.2 K/uL 0.0-0. 4 Not Available [facility] (Lab) [address] [place], [address], 06/12/2015 19:52:35 06/12/19 16 06/12/2015 CBC w/ auto diff baso (absolute) 0.0 K/uL 0.1-0. 3 low Not Available [facility] (Lab) [address] [facility], [place], [address], 06/12/2015 19:52:35 06/12/19 16 06/12/2015 CBC w/ auto diff neut % 43.1 % 40.0-7 4.0 Not Available [facility] (Lab) [address] [place], [address], 06/12/2015 19:52:35 06/12/19 16 06/12/2015 CBC w/ auto diff lymphs % 44.6 % 14.0-4 6.0 Not Available [facility] (Lab) [address] [place], [address], 06/12/2015 19:52:35 06/12/19 16 06/12/2015 CBC w/ auto diff mono % 8.7 % 4.0-12 .0 Not Available [facility] (Lab) [address], [place], [address], 06/12/2015 19:52:35 06/12/19 16 06/12/2015 CBC w/ auto diff eos % 3 % <=5 Not Available [facility] (Lab) [address], [place], [address], 06/12/2015 19:52:35 06/12/19 16 06/12/2015 CBC w/ auto diff baso % 0.2 % 0.1-1. 1 Not Available [facility] (Lab) [address] [facility], [place], [address], 06/12/2015 19:52:35 06/12/19 16 06/13/2015 HbA1c (hemo globi n A1c), blood hemoglobin A1C 5.4 % 4.8-5. 6 . Pre-d iabet es: 5.7 - 6.4 Diabe ivet: >6.4 Glyce [place] contr ol for adult s with diabe ivet: <7.0 Not Available [facility] (Lab) [address], [place], [address], 06/13/2015 04:12:44 06/12/19 16 06/13/2015 T4, total , serum thyroxine T4 4.7 ug/dL 4.5-12 .0 Not Available [facility] (Lab) [address] [place], [address], 06/13/2015 05:19:09 06/12/19 16 06/13/2015 CMP, serum or plasm a glucose, serum 98 mg/dL 65-99 Not Available [facility] [address], [place], [address], 06/13/2015 05:19:11 06/12/19 16 06/13/2015 CMP, serum or plasm a BUN 7 mg/dL 6-24 Not Available [facility] (Lab) [address], [place], [address], 06/13/2015 05:19:11 06/12/19 16 06/13/2015 CMP, serum or plasm a creatinine, serum 0.78 mg/dL 0.76-1 .27 Not Available [facility] (Lab) [address], [place], [address], 06/13/2015 05:19:11 06/12/19 16 06/13/2015 CMP, serum or plasm a eGFR if nonafricn AM 102 mL/mi n/1.7 3 >59 Not Available [facility] (Lab) [address], [place], [address], 06/13/2015 05:19:11 06/12/19 16 06/13/2015 CMP, serum or plasm a eGFR if 118 mL/mi n/1.7 3 >59 Not Available [facility] (Lab) [address], [place], [address], 06/13/2015 05:19:11 06/12/19 16 06/13/2015 CMP, serum or plasm a BUN/creatini ne ratio 9 9-[address] [facility] (Lab) [address], [place], [address], 06/13/2015 05:19:11 06/12/19 16 06/13/2015 CMP, serum or plasm a sodium, serum 141 mmol/ L 134-14 4 Not Available [facility] (Lab) [address] [place], [address], 06/13/2015 05:19:11 06/12/19 16 06/13/2015 CMP, serum or plasm a potassium, serum 4.5 mmol/ L 3.5-5. 2 Not Available [facility] (Lab) [address], [place], [address], 06/13/2015 05:19:11 06/12/19 16 06/13/2015 CMP, serum or plasm a chloride, serum 101 mmol/ L 97-108 Not Available [facility] (Lab) [address] [place], [address], 06/13/2015 05:19:11 06/12/19 16 06/13/2015 CMP, serum or plasm a carbon dioxide, total 23 mmol/ L 18-29 Not Available [facility] (Lab) [address], [place], [address], 06/13/2015 05:19:11 06/12/19 16 06/13/2015 CMP, serum or plasm a calcium, serum 9.5 mg/dL 8.7-10 .2 Not Available [facility] (Lab) [address], [place], [address], 06/13/2015 05:19:11 06/12/1906/13/2015 CMP, serum or plasm a protein total serum 7.2 g/dL 6.0-8. 5 Not Available [facility] (Lab) [address], [place], [address], 06/13/2015 05:19:11 06/12/1906/13/2015 CMP, serum or plasm a albumin, serum 4.5 g/dL 3.5-5. 5 Not Available [facility] (Lab) [address], [place], [address], 06/13/2015 05:19:11 06/12/19 16 06/13/2015 CMP, serum or plasm a globulin total 2.7 g/dL 1.5-4. 5 Not Available [facility] (Lab) [address], [place], [address], 06/13/2015 05:19:11 06/12/1906/13/2015 CMP, serum or plasm a A/G ratio 1.7 1.1-2. 5 Not Available [facility] (Lab) [address], [place], [address], 06/13/2015 05:19:11 06/12/1906/13/2015 CMP, serum or plasm a bilirubin total <0.2 mg/dL 0.0-1. 2 Not Available [facility] (Lab) [address] [place], [address], 06/13/2015 05:19:11 06/12/19 16 06/13/2015 CMP, serum or plasm a alkaline phosphatase ser 105 IU/L 39-117 Not Available [facility] (Lab) [address], [place], [address], 06/13/2015 05:19:11 06/12/19 16 06/13/2015 CMP, serum or plasm a AST (SGOT) 20 IU/L 0-40 Not Available [facility] ([facility]) [address] [place], [address], 06/13/2015 05:19:11 06/12/19 16 06/13/2015 CMP, serum or plasm a ALT (SGPT) 18 IU/L 0-44 Not Available [facility] ([facility]) [address] [place], [address], 06/13/2015 05:19:11 06/12/19 16 06/13/2015 TSH, serum or plasm a TSH 2.010 uIU/m L 0.450- 4.500 Not Available [facility] (Lab) [address] [place], [address], 06/13/2015 05:19:12 06/12/19 16 06/13/2015 PSA, serum [...] t be inter prete d as absol [place] evide nce of the prese nce or absen ce of truong mena . Not Available [facility] (Lab) [address] [place], [address], 06/13/2015 05:19:13 06/12/19 16 06/13/2015 lipid panel w/ direc t LDL, serum cholesterol, total 215 mg/dL 100-19 9 high Not Available [facility] (Lab) [address] [place], [address], 06/13/2015 05:19:14 06/12/19 16 06/13/2015 lipid panel w/ direc t LDL, serum triglyceride s 73 mg/dL 0-149 Not Available [facility] (Lab) [address] [place], [address], 06/13/2015 05:19:14 06/12/19 16 06/13/2015 lipid panel w/ direc t LDL, serum HDL cholesterol 85 mg/dL >39 Accor ding to ATP-I II Guide lines , HDL-C >59 mg/dL is consi dered a negat phan risk facto r for CHD. Not Available [facility] (Lab) [address] [place], [address], 06/13/2015 05:19:14 06/12/19 16 06/13/2015 lipid panel w/ direc t LDL, serum VLDL cholesterol margarita 15 mg/dL 5-40 Not Available [facility] (Lab) [address] [place], [address], 06/13/2015 05:19:14 06/12/19 16 06/13/2015 lipid panel w/ direc t LDL, serum LDL cholesterol calc 115 mg/dL 0-99 high Not Available [facility] (Lab) [address] [place], [address], 06/13/2015 05:19:14 06/12/19 16 06/13/2015 lipid panel w/ direc t LDL, serum lipid calculation Not Available [facility] ([facility]) [address] [place], [address], 06/13/2015 05:19:14 09/22/19 15 09/21/2014 imagi ng/di agnos tic resul t No observ ation record ed. [address] , [place], [address], 09/30/2014 11:19:53 09/26/19 15 imagi ng/di agnos tic resul t No observ ation record ed. [email or web address] Not Available 2014 11:08:28 10/01/19 15 09/27/2014 imagi ng/di agnos tic resul t No observ ation record ed. [address] [place], [address], 10/03/2014 11:08:29 11/09/19 15 11/08/2014 imagi ng/di agnos tic resul t No observ ation record ed. [email or web address] Not Available 2014 15:10:11 12/02/19 15 12/01/2014 imagi ng/di agnos tic resul t No observ ation record ed. [email or web address] Not Available 2014 10:38:41 01/03/20 15 12/31/2014 imagi ng/di agnos tic resul t No observ ation record ed. [facility]) [address] [place], [address], 01/02/2015 09:50:17 01/07/20 15 01/05/2015 imagi ng/di agnos tic resul t No observ ation record ed. [email or web address] [facility], [place], [address], 01/06/2015 09:32:38 03/10/20 15 03/10/2015 imagi ng/di agnos tic resul t No observ ation record ed. [email or web address] [facility] (Rad) [address] [place], [address], 03/10/2015 12:50:58 03/11/20 15 03/11/2015 CV EKG 12 lead MOJGAN TABOR MD: KIRILL ANN MD 6905 ACCT: [id number] ADMIT/ SERVIC E DATE: DISCHA RGE DATE: : 1959 PT TYPE: ADM IN SEX: M ORD SITE: [address] TEST DATE: 2014-05 PAT NAME: MOJGAN TABOR DEPART MENT: CARD 40 PATIEN T ID: [id number] ROOM: [facility] GENDER : MALE TECHNI MARIA ISABEL: CDN : 01-[address] BY: CADE ANN ORDER NUMBER : [id number] 01SEB CJ Lu MD: FELIPE SELF MEASUR EMENTS INTERV ALS AXIS RATE: 145 P: 81 ND: 118 QRS: 19 QRSD: 82 T: 70 QT: 282 QTC: 438 INTERP RETIVE STATEM ENTS SINUS TACHYC ARDIA WITH SHORT ND INTERV AL WITH OCCASI ONAL VENTRI CULAR PREMAT URE COMPLE XES WITH OCCASI ONAL SUPRAV ENTRIC ULAR AMBER SEPTAL MYOCAR DIAL INFARC TION, PROBAB LY OLD NONSPE CIFIC ST SEGMEN T ABNORM ALITIE S, CANNOT RULE OUT ISCHEM IA ELECTR ONICAL LY SIGNED BY FELIPE SELF AT 17:03: 07 CDT [facility], [place], [address], 05/07/2015 04:08:47 03/11/20 15 03/11/2015 xr chest 1 view alejandraMOJGAN Hester 6905 ADMIT/ SERVIC E DATE: ACCT: [id number] DISCHA RGE DATE: : 1959 SEX: M ORD SITE: [facility] PT TYPE: ADM IN JING MUHAMMAD MD: KIRILL ANN MD STUDY DATE REPORT # ORDER # EXT ORDER ID [id number] 1.002 PROC CODE: [id number] ORT PROCED URE DESCRI PTION: XR CHEST 1 VIEW PORTAB LE I MPRESS ION: NO ACUTE INFILT RATE. EXAMIN ATION: PORTAB LE CHEST X-RAY 1 VIEW ACCESS ION: [id number] EXAM DATE/T TRAVON: 2014 8:36 PM CLINIC [...] SIGNED BY: MARYBEL CROUCH ER10/07/2014 8:54 PM [facility], [place], [address], 05/07/2015 04:08:47 03/12/20 15 03/12/2015 MRI brain wo MOJGAN TABOR 6905 ADMIT/ SERVIC E DATE: ACCT: [id number] DISCHA RGE DATE: : 1959 SEX: M ORD SITE: [facility] PT TYPE: ADM IN BRANDONI SABINA MD: KIRILL ANN MD STUDY DATE REPORT # ORDER # EXT ORDER ID [id number] 1.001 PROC CODE: BRNWOC PROCED URE DESCRI [...] BRAIN WITHOU T CONTRA ST. ACCESS ION: [id number] EXAM DATE/T TRAVON: 2014 11:23 AM CLINIC [...] SIGNED BY: CADE GRAY 11:51 AM build [facility], [place], [address], 05/07/2015 04:08:47 06/19/19 16 06/19/2015 imagi ng/di agnos tic resul t No observ ation record ed. [facility] Not Available 2015 09:33:44 06/19/19 16 06/19/2015 imagi ng/di agnos tic resul t No observ ation record ed. [facility] (Lab) [address] [place] [address] , [place], [address], 06/19/2015 09:33:44 06/19/19 16 06/19/2015 imagi ng/di agnos tic resul t No observ ation record ed. [facility] (Lab) [address] [place] [address] [place], [address], 06/20/2015 09:57:26 06/20/19 16 06/19/2015 imagi ng/di agnos tic resul t No observ ation record ed. [address] [place], [address], 06/20/2015 10:01:56 05/09/20 19 05/09/2019 , les aldana id arter y No observ ation record ed. [address] [place], [address], 05/09/2019 17:59:20 Result Notes None recorded. Problems Name Problem SNOMED Code Status Onset Date Resolution Date Notes Provider Name and Address Organization Details Recorded Time Low back pain 326287673 Active Burke Ann MD Attn: Zulemalivia lu,[address] [facility], [place], [address], [place] [facility] 5 16:09:38 Essential hypertension 82773876 Active Burke Ann MD Attn: Austin tabitha,[address] [facility], [place], [address], [place] [facility] 6 18:34:53 Anxiety 03123885 Active Burke Ann MD Attn: Austin lu,[address] [facility], [place], [address], [place] [facility] 5 15:03:30 Laceration - injury 524741518 Active Burke Ann MD Attn: Zulemalivia lu,[address] [facility], [place], [address], [place] [facility] 5 15:31:20 Seizure disorder 949618317 Active Burke Ann MD Attn: [place] tabitha,[address] [facility], [place], [address], [place] [facility] 6 18:34:53 Cerebrovascula r accident 623496150 Active Burke Ann MD Attn: [place] tabitha,[address] [facility], [place], [address], [place] [facility] 6 18:34:53 Insomnia 705111533 Active Burke Ann MD Attn: Austin lu,[address] [facility], [place], [address], [place] [facility] 5 15:31:20 Problem Notes None recorded. Procedures Surgical History None recorded. Imaging Results Imaging Date Name Status LastModified by Organiz ation Details LastModified Time 09/21/2014 imaging/diagn ostic result completed [address] [place], [address], 09/30/2014 11:19:53 09/25/2014 imaging/diagn ostic result completed Information not available 10/03/2014 11:08:28 09/27/2014 imaging/diagn ostic result completed [address] [place], [address], 10/03/2014 11:08:29 11/08/2014 imaging/diagn ostic result completed Information not available 11/11/2014 15:10:11 12/01/2014 imaging/diagn ostic result completed [email or web address] Information not available 12/02/2014 10:38:41 12/31/2014 imaging/diagn ostic result completed [email or web address] [facility] ([facility]) [address] [place], [address], 01/02/2015 09:50:17 01/05/2015 imaging/diagn ostic result completed [email or web address] [place], [address], 01/06/2015 09:32:38 03/10/2015 imaging/diagn ostic result completed [email or web address] [facility] ([facility]) [address] [place], [address], 03/10/2015 12:50:58 03/11/2015 CV EKG 12 [place], [address], 05/07/2015 04:08:47 03/11/2015 xr chest 1 [place], [address], 05/07/2015 04:08:47 03/12/2015 [place], [address], 05/07/2015 04:08:47 06/19/2015 imaging/diagn ostic result completed [facility] Information not available 06/19/2015 09:33:44 06/19/2015 imaging/diagn ostic result completed [facility] (Lab) [address] [place] [address] [place], [address], 06/19/2015 09:33:44 06/19/2015 imaging/diagn ostic result completed [facility] (Lab) [address] [place] [address] [place], [address], 06/20/2015 09:57:26 06/19/2015 imaging/diagn ostic result completed [address] [place], [address], 06/20/2015 10:01:56 05/09/2019 US, duplex, carotid artery completed [address] [place], [address], 05/09/2019 17:59:20 Procedure Notes None recorded. Medical [...] Details Last Updated DateTime 5 22 /min 74534.9 67564 g 98.7 [degF] 170.18 cm 21.4 kg/m2 80 /min 148 mm[Hg] 94 mm[Hg] Leonor Arauz MA [facility] 5 15:57:48 Date Recorded Body height Body mass index (BMI) Body weight Heart rate Respiratory rate Body temperature Systolic blood pressure Diastolic blood pressure Provider Name and Address Organization Details Last Updated DateTime 5 170.18 cm 21.5 kg/m2 86451.1 5469 g 88 /min 20 /min 98.2 [degF] 132 mm[Hg] 80 mm[Hg] Fior Pereyra MA [facility] 5 12:08:47 Date Recorded Body temperature Body height Body mass index (BMI) Heart rate Respiratory rate Body weight Systolic blood pressure Diastolic blood pressure Provider Name and Address Organization Details Last Updated DateTime 5 97.9 [degF] 175.26 cm 20.2 kg/m2 78 /min 18 /min 56059.1 5469 g 142 mm[Hg] 90 mm[Hg] Jeannasunitha Luan [facility] 5 13:46:55 Date Recorded Heart rate Body height Respiratory rate Body mass index (BMI) Body weight Body temperature Systolic blood pressure Diastolic blood pressure Provider Name and Address Organization Details Last Updated DateTime 6 92 /min 170.18 cm 20 /min 21.5 kg/m2 55607.1 5469 g 98 [degF] 102 mm[Hg] 78 mm[Hg] Leonor Arauz MA [facility] 6 16:31:07 Social History None [...] Skin Problems N Anemia N Heart Attack (OR) N Anxiety Disorder Y Diabetes N Muscle, Joint, or Bone Problems N Seizures/Epilepsy Y Acid Reflux (GERD) N Cancer N Stroke Y Asthma N Allergies N High Cholesterol N Hepatitis N Liver Disease N Headaches Y Heart Failure N Osteoporosis N Past Encounters Encounter ID Performer Location Encounter Start Date Encounter Closed Date Diagnosis/Indication Diagnosis SNOMED-CT Code Diagnosis ICD10 Code Diagnosis Note [id number] Jeannie Sherman RN [facility] (Adult/Fa m Med) [address] [place] [phone] 06/10/2014 13:26:21 06/10/2014 18:13:06 Laceration - injury 977479810 Seizure disorder 925507166 Cerebrovas cular accident 378041162 Insomnia 866512843 [id number] Nata Albert LPN [facility] (Adult/Fa m Med) [address] [place] [phone] 09/18/2014 14:45:50 09/18/2014 18:01:22 Seizure disorder 066388905 Anxiety 12620312 Low back pain 344431138 [id number] Crystal Toy [facility] (Adult/Fa m Med) [address] [place] [phone] 04/16/2015 11:24:38 04/16/2015 17:33:17 Essential hypertension 50912569 I10 Anxiety 62535285 F41.9 Seizure disorder 9656964 02 G40.909 [id number] Dotty Peace [facility] (Adult/Fa m Med) [address] [place] [phone] 06/12/2015 15:25:04 06/27/2015 12:04:51 Essential hypertension 67546442 I10 Seizure disorder 4952168 02 G40.909 Cerebrovas cular accident 947541387 I63.9 Health Concerns Section Related Observation LastModified by Organization Detai ls LastModified Time None Recorded Concern Status LastModified by Organization Details LastModified Time None Recorded Advance Directives Directive None Recorded Payers Encounter Date Sequence Insurance Name Policy Number Policy Gilbert Covered Member ID Gilbert Member ID Guarantor Name 06/10/2014 1 [facility] PRIOR TO 11/27/2020 (MEDICAID REPLACEMENT - HMO) Mojgan Tabor [id number] Mojgan Tabor 09/18/2014 1 [facility] PRIOR TO 11/27/2020 (MEDICAID REPLACEMENT - HMO) Mojgan Tabor [id number] Mojgan Tabor 04/16/2015 1 [facility] PRIOR TO 11/27/2020 (MEDICAID REPLACEMENT - HMO) Mojgan Tabor [id number] Mojgan Tabor 06/12/2015 1 [facility] PRIOR TO 11/27/2020 (MEDICAID REPLACEMENT - HMO) Mojgan Tabor [id number] Mojgan Tabor Notes Date Note Type Note Provider Name and Address Organization Details Recorded Time 04/16/2015 text/html FOLLOW up care since stroke Burke Ann MD Attn: Accounting,[address] [place], [address], [place] [facility] 04/16/2015 15:03:31
--- OUTSIDE RECORDS SUMMARY | 2024-09-17 11:18 | XMS_ITS | Encounter Summary ---
Author Organization [facility] Address [address] [place] [address] Care Team Providers Care Journeyman Pressman Name Role Phone Frank Toure MD Unavailable Misael Maradiaga DO Primary Care Provider [phone] Joyce Luevano NP Primary Care Provider Unavaila Marielena Adame MD Primary Care Provider [phone] Encounter Details Date Type Department Care Team (Late st Contact Info) Description 12/14/2018 Hospital Follow-up Call [facility] [place] [address] Cony Adan RN Social History Tobacco Use [...] on filedocumented in this encounter Care Teams Journeyman Pressman Relationship Specialty Start Date End Date Misael Maradiaga DO [address] [place] [address] PCP - General FAMILY PRACTICE 09/28/18 01/13/20 Joyce Luevano NP [address] [place] [address] PCP - General NURSE PRACTITIONER 01/14/20 10/26/23 Marielena Smallwood MD [address] [place] [address] PCP - General FAMILY PRACTICE 10/27/23 Frank Toure MD [address] [place] [address] 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
--- OUTSIDE RECORDS SUMMARY | 2024-09-17 11:19 | XMS_ITS | Encounter Summary ---
Author Organization [facility] - [facility] Address [address] [place] [address] Care Team Providers Care Ranch Hand Livestock Name Role Phone Frank Toure MD Unavailable Joyce Luevano NP Primary Care Provider Unavaila Marielena Adame MD Primary Care Provider [phone] Encounter Details Date Type Department Care Team (Late st Contact Info) Description 03/09/2022 Cadentt Message Enc [facility] Medical Group Family Medicine - [address] [address] Joyce Luevano, FIRER BOILER Update on Bi Tabor Social History Tobacco [...] on filedocumented in this encounter Care Teams Ranch Hand Livestock Relationship Specialty Start Date End Date Jyoce Luevano NP [address] [place] [address] PCP - General NURSE PRACTITIONER 01/14/20 10/26/23 Marielena Smallwood MD [address] [place] [address] PCP - General FAMILY PRACTICE 10/27/23 Frank Toure MD [address] [place] [address] 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
--- OUTSIDE RECORDS SUMMARY | 2024-09-17 11:19 | XMS_ITS | Encounter Summary ---
Author Organization [facility] - [facility] Address [address] [place] [address] Care Team Providers Care Inspector Assembly Name Role Phone Frank Toure MD Unavailable Joyce Luevano NP Primary Care Provider Unavaila Marielena Adame MD Primary Care Provider [phone] Encounter Details Date Type Department Care Team (Late st Contact Info) Description 06/16/2022 MyCNanoogot Message Enc [facility] Medical Group Family Medicine - [address] [address] Joyce Luevano, FIBRE TECHNOLOGIST Bi Tabor Social History Tobacco Use Types [...] Coronavirus/COVID-19? No / Unsure 06/17/2022 10:38 AM FOOD AND BEVERAGE CASHIER documented as of this encounter Functional Status [...] in writing. She states to fax to [phone]. Will send letter to them. AND BEVERAGE CASHIER * Yonatan Rodriguez RN - 06/16/2022 12:50 PM CST Please see note. Thanks AND BEVERAGE CASHIER documented in this encounter Plan of Treatment Not on file documented as of this encounter Visit Diagnoses Not on filedocumented in this encounter Care Teams Inspector Assembly Relationship Specialty Start Date End Date Joyce Luevano NP [address] [place] [address] PCP - General NURSE PRACTITIONER 01/14/20 10/26/23 Marielena Smallwood MD [address] [place] [address] PCP - General FAMILY PRACTICE 10/27/23 Frank Toure MD [address] [place] [address] Chivo Merchant Banker CARDIOVASCULAR DISEASE 05/30/16 documented as of this encounter
--- OUTSIDE RECORDS SUMMARY | 2024-09-17 11:19 | XMS_ITS | Encounter Summary ---
Author Organization [facility] - [facility] Address [address] [place] [address] Care Team Providers Care Motorcycle Service Technician Name Role Phone Frank Toure MD Unavailable Joyce Luevano NP Primary Care Provider Unavaila Marielena Adame MD Primary Care Provider [phone] Encounter Details Date Type Department Care Team (Late st Contact Info) Description 02/23/2022 [employer]t Message Enc [facility] Medical Group Family Medicine - [address] [address] Joyce Luevano, RESIDENTIAL PROGRAM WORKER Bi Tabor toenail Social History Tobacco Use [...] on filedocumented in this encounter Care Teams Motorcycle Service Technician Relationship Specialty Start Date End Date Joyce Luevano NP [address] [place] [address] PCP - General NURSE PRACTITIONER 01/14/20 10/26/23 Marielena Smallwood MD [facility] [place] [address] PCP - General FAMILY PRACTICE 10/27/23 Frank Toure MD [address] [place] [address] Chivo Stock Unloader CARDIOVASCULAR DISEASE 05/30/16 documented as of this encounter
--- OUTSIDE RECORDS SUMMARY | 2024-09-17 11:19 | XMS_ITS | Encounter Summary ---
Author Organization [facility] - [facility] Address [address] [place] [address] Care Team Providers Care Welder Gas Tungsten Arc Name Role Phone Frank Toure MD Unavailable Joyce Luevano NP Primary Care Provider Unavaila Marielena Adame MD Primary Care Provider [phone] Encounter Details Date Type Department Care Team (Late st Contact Info) Description 03/08/2022 Vyome Bioscien[employer]est Message Enc [facility] Medical Group Family Medicine - [address] [address] Joyce Luevano, BOUCHRA Vascular doctor [...] Author Status No 12/04/2018 2:03 PM CDT Anhai Jernigan RN Active documented in this encounter [...] on filedocumented in this encounter Care Teams Welder Gas Tungsten Arc Relationship Specialty Start Date End Date Joyce Luevano NP [address] [place] [address] PCP - General NURSE PRACTITIONER 01/14/20 10/26/23 Marielena Smallwood MD [address] [place] [address] PCP - General FAMILY PRACTICE 10/27/23 Frank Toure MD [address] [place] [address] Chivo Pipe Or Steam Fitter Furnace Installer CARDIOVASCULAR DISEASE 05/30/16 documented as of this encounter
--- OUTSIDE RECORDS SUMMARY | 2024-09-17 11:19 | XMS_ITS | Encounter Summary ---
Author Organization [facility] - [facility] Address [address] [place] [address] Care Team Providers Care Photograph Tinter Name Role Phone Frank Toure MD Unavailable Joyce Luevano NP Primary Care Provider Unavaila Marielena Adame MD Primary Care Provider [phone] Encounter Details Date Type Department Care Team (Late st Contact Info) Description 02/23/2022 MyChart Message Enc [facility] Medical Group Family Medicine - [address] [address] Joyce Luevano, BOUCHRA Bi updated [...] 10:33 AM CDT These updated through the [employer] system. documented in this encounter Plan of Treatment Not on file documented as of this encounter Visit Diagnoses Not on filedocumented in this encounter Care Teams Photograph Tinter Relationship Specialty Start Date End Date Joyce Luevano NP [address] [place] [address] PCP - General NURSE PRACTITIONER 01/14/20 10/26/23 Marielena Smallwood MD [address] [place] [address] PCP - General FAMILY PRACTICE 10/27/23 Frank Toure MD [address] [place] [address] Chivo Medical Care Manager CARDIOVASCULAR DISEASE 05/30/16 documented as of this encounter
--- OUTSIDE RECORDS SUMMARY | 2024-09-17 11:19 | XMS_ITS | Encounter Summary ---
Author Organization [facility] - [facility] Address [address] [place] [address] Care Team Providers Care Tap Grinder Name Role Phone Frank Toure MD Unavailable Joyce Luevano NP Primary Care Provider Unavaila Marielena Adame MD Primary Care Provider [phone] Encounter Details Date Type Department Care Team (Late st Contact Info) Description 03/13/2022 Envoimoinschert Message Enc [facility] Medical Group Family Medicine - [address] [address] Joyce Luevano, BAGGAGE SCREENER Bi Tabor Update Social History Tobacco Use [...] on filedocumented in this encounter Care Teams Tap Grinder Relationship Specialty Start Date End Date Joyce Luevano NP [address] [place] [address] PCP - General NURSE PRACTITIONER 01/14/20 10/26/23 Marielena Smallwood MD [address] [place] [address] PCP - General FAMILY PRACTICE 10/27/23 Frank Toure MD [address] [place] [address] Chivo Wildlife Veterinarian CARDIOVASCULAR DISEASE 05/30/16 documented as of this encounter
--- OUTSIDE RECORDS SUMMARY | 2024-09-17 11:19 | XMS_ITS | Encounter Summary ---
Author Organization [facility] - [facility] Address [address] [place] [address] Care Team Providers Care Veterinary Pharmacologist Name Role Phone Frank Toure MD Unavailable Joyce Luevano NP Primary Care Provider Unavaila Marielena Adame MD Primary Care Provider [phone] Encounter Details Date Type Department Care Team (Late st Contact Info) Description 02/23/2022 XYZEt Message Enc [facility] Medical Group Family Medicine - [address] [address] Joyce Luevano, CASE FINISHING MACHINE ADJUSTER Bi Tabor Social History Tobacco Use [...] 11:25 AM CDT Message sent through other [employer] chart message * Yonatan Rodriguez RN - 02/23/2022 10:24 AM CDT Please see note. Thanks documented in this encounter Plan of Treatment Not on file documented as of this encounter Visit Diagnoses Not on filedocumented in this encounter Care Teams Veterinary Pharmacologist Relationship Specialty Start Date End Date Joyce Luevano NP [address] [place] [address] PCP - General NURSE PRACTITIONER 01/14/20 10/26/23 Marielena Smallwood MD [address] [place] [address] PCP - General FAMILY PRACTICE 10/27/23 Frank Toure MD [address] [place] [address] Benson Faculty I On Call Medical Assistant CARDIOVASCULAR DISEASE 05/30/16 documented as of this encounter
--- OUTSIDE RECORDS SUMMARY | 2024-09-17 11:19 | XMS_ITS | Clinical Summary ---
Author Organization [facility] Address [address] [place] [address] Care Team Providers Care Edge Trimmer Mechanic Name Role Phone Frank Toure MD Unavailable Marielena Smallwood MD Primary Care Provider [phone] Allergies Active Allergy Reactions Criticality Noted Date Comments Clonazepam Hallucinations Medium 12/09/2021 hallucinations Medications vitamin B-1 100 MG TabIndications:Seiz ure ([facility]) Take 1 tablet (100 mg [...] x 7.5 MG/0.1ML Liquid Therapy PackIndications:Tara llanes ([facility]) 2 sprays by Nasal route [...] No evidence of infection Urine cultures from [facility] last month were negative growth [...] infection. Antibiotics not indicated Osteoporosis 11/22/2018 Seizure ([facility]) 08/25/2017 Cerebrovascular accident (CV A) due to thrombosis of right posterior cerebral artery ([facility]) 02/20/2016 Assessment & Plan (11/29/2018 9:36 PM CDT): Patient has residual cognitive difficulties I think beyond with patient and her family have recognized in the past however as noted in adequate medication intake her side effects may be causing deterioration. Hypertension 07/24/2015 Hyperlipidemia 04/14/2015 Assessment & Plan (11/29/2018 9:36 PM CDT): Continue home meds and monitor Seizure ([facility]) 04/11/2015 Assessment & Plan (11/29/2018 9:39 PM CDT): History of generalized seizure disorder and being managed by a neurologist in [facility] however there is confusion from family about dosages of his medications because he is got multiple pill bottles at home. Verification of levetiracetam dose per neurologist noted Encounters Date Type Department Care Team Description 08/14/2024 MyChart Message Enc [facility] Medical Group Family Medicine [address] [address] Marielena Smallwood MD Use of [...] Comments Blood Pressure 128/72 06/17/2022 10:46 AM CAPONIZER Pulse 95 06/17/2022 10:46 AM CAPONIZER Temperature 36.4 C (97.6 F) 06/07/2022 12:31 PM CAPONIZER Respiratory Rate 18 06/17/2022 10:4 6 AM CAPONIZER Oxygen Saturation 98% 06/17/2022 10: 46 AM CAPONIZER Inhaled Oxygen Concentration - - Weight 59 kg (130 lb) 06/17/2022 10:46 AM CAPONIZER stated - unable to weigh Height 180.3 cm (5' 11 ) 06/17/2022 10: 46 AM CAPONIZER Body Mass Index 18.13 06/17/2022 10:46 AM CAPONIZER Plan of Treatment Health Maintenance Due Date Last Done Comments Annual Physical 01[birth year]27/1963 Zoster Vaccines (1 of 2) 2011 Pneumococcal Vaccine: 50+ Years (2 of 2 - PCV) 02/03/2017 02/04/2016, 08/13/2015, 02/07/2015 RSV Immunization or 60+ Years (1 - Risk 60-74 years 1-dose series) 2021 COVID-19 Vaccine (4 - 2023-2 5 season) 2024 04/06/2021, 07/02/2020, 06/11/2020 PHQ-2 (Physician [place]) 05/30/2024 Colorectal Cancer Screening Colonoscopy (10 Years) [...] HEPATITIS C ANTIBODY Routine 06/23/2016 11:13 AM CAPONIZER from Last 3 Months or Most Recently Relevant to Health Maintenance Results * Colonoscopy (11/22/2016 12:00 AM CDT) 11/22/2016 11/22/2016 Narrative [facility] TO EPIC CONVERSION - 11/22/2016 12:00 AM CDT Documented hx of procedure Procedure Note Jerica Tsai MD - 04/02/2018 Documented hx of procedure us Generic Neris Tsai MD GI PROCEDURE ORDERABLES Final Result Performing Organization Address City/[facility] Co de Phone Number [facility] TO EPIC CONVERSION * HEPATITIS C ANTIBODY (06/23/2016 11:13 AM CAPONIZER) HEPATITIS C AB NON-REACTIVE TESTING [place] [address] NR [facility] TO EPIC CONVERSION 06/23/2016 11:1 3 AM CAPONIZER 06/23/2016 11:13 AM CAPONIZER Narrative [facility] TO EPIC CONVERSION - 06/24/2016 6:41 PM CAPONIZER Result Communication: No patient communication needed at this time Misael Maradiaga DO LABORATORY Final Result [facility] TO EPIC CONVERSION from Last 3 Months or Most Recently Relevant to Health Maintenance Insurance PICHARDO Advance Directives Documents on File Type Date Recorded Patient Control System Computer Scientist Expl anation Advance Directives and Living Will 10/17/2017 SADVANCE DIRECTIVES * Full Code (Latest Code Status on File) Date Activated Date Inactivated Comments 12/04/2018 1:44 PM 12/12/2018 3:19 PM * Full Code Date Activated Date Inactivated Comments 11/29/2018 6:21 PM 12/04/2018 1:38 PM Care Teams Edge Trimmer Mechanic Relationship Specialty Start Date End Date Marielena Smallwood MD [address] [place] [address] PCP - General FAMILY PRACTICE 10/27/23 Frank Toure MD [address] [place] [address] [place] Manager Books CARDIOVASCULAR DISEASE 05/30/16
--- OUTSIDE RECORDS SUMMARY | 2024-09-17 11:19 | XMS_ITS | Encounter Summary ---
Author Organization [facility] - [facility] Address [address] [place] [address] Care Team Providers Care Pin Machine Tender Name Role Phone Frank Toure MD Unavailable Joyce Luevano NP Primary Care Provider Unavaila Marielena Adame MD Primary Care Provider [phone] Encounter Details Date Type Department Care Team (Late st Contact Info) Description 05/11/2022 [place] Stem Cellt Message Enc [facility] Medical Group Family Medicine - [address] [address] Joyce Luevano, BOUCHRA Pat appointment [...] on filedocumented in this encounter Care Teams Pin Machine Tender Relationship Specialty Start Date End Date Joyce Luevano NP [address] [place] [address] PCP - General NURSE PRACTITIONER 01/14/20 10/26/23 Marielena Smallwood MD [address] [place] [address] PCP - General FAMILY PRACTICE 10/27/23 Frank Toure MD [address] [place] [address] Hawley Human Resource Consultant CARDIOVASCULAR DISEASE 05/30/16 documented as of this encounter
--- OUTSIDE RECORDS SUMMARY | 2024-09-17 11:19 | XMS_ITS | Encounter Summary ---
Author Organization [facility] - [facility] Address [address] [place] [address] Care Team Providers Care Tennis Centre Manager Name Role Phone Frank Toure MD Unavailable Joyce Luevano NP Primary Care Provider Unavaila Marielena Adame MD Primary Care Provider Encounter Details Date Type Department Care Team (Late st Contact Info) Description 03/15/2022 Fyreballt Message Enc [facility] Medical Group Family Medicine - [address] [address] Joyce Luevano, APPLICATIONS SUPPORT ENGINEER Bi Tabor Social History Tobacco Use [...] on filedocumented in this encounter Care Teams Tennis Centre Manager Relationship Specialty Start Date End Date Joyce Luevano NP [address] [place] [address] PCP - General NURSE PRACTITIONER 01/14/20 10/26/23 Marielena Smallwood MD [address] [place] [address] PCP - General FAMILY PRACTICE 10/27/23 Frank Toure MD [address] [place] [address] Chivo Pumping Supervisor CARDIOVASCULAR DISEASE 05/30/16 documented as of this encounter
--- OUTSIDE RECORDS SUMMARY | 2024-09-17 11:19 | XMS_ITS | Encounter Summary ---
Author Organization [facility] - [facility] Address [address] [place] [address] Care Team Providers Care Derrick Builder Name Role Phone Frank Toure MD Unavailable Joyce Luevano NP Primary Care Provider Unavaila Marielena Adame MD Primary Care Provider [phone] Encounter Details Date Type Department Care Team (Late st Contact Info) Description 07/06/2022 MyCSwitchflyt Message Enc [facility] Medical Group Family Medicine - [address] [address] Joyce Luevano, EDUCATIONAL PSYCHOLOGY PROFESSOR Bi Tabor Social History Tobacco Use [...] Coronavirus/COVID-19? No / Unsure 06/17/2022 10:38 AM MATERIAL DISTRIBUTOR documented as of this encounter Functional Status [...] 1:34 PM CST Please see note. Thanks RIAL DISTRIBUTOR * Yonatan Rodriguez RN - 07/07/2022 8:09 AM CST Please see note. Thanks RIAL DISTRIBUTOR documented in this encounter Plan of Treatment Not on file documented as of this encounter Visit Diagnoses Not on filedocumented in this encounter Care Teams Derrick Builder Relationship Specialty Start Date End Date Joyce Luevano NP [address] [place] [address] PCP - General NURSE PRACTITIONER 01/14/20 10/26/23 Marielena Smallwood MD [address] [place] [address] PCP - General FAMILY PRACTICE 10/27/23 [place] [address] [place] [address] Chivo Hand Frame Surgical Elastic Knitter CARDIOVASCULAR DISEASE 05/30/16 documented as of this encounter
--- OUTSIDE RECORDS SUMMARY | 2024-09-17 11:19 | XMS_ITS | Referral Summary ---
Author Organization [facility] Address [address] [place] [address] Care Team Providers Care Laundry Assistant Name Role Phone Marielena Smallwood MD Primary Care Provider Encounters Date Type Department Care Team Description 07/09/2024 7:23 PM CREW LEADER - 07/09/2024 11:59 PM CREW LEADER Hospital Encounter AMBULANCE BILLING [address] [place] [address] Discharge Disposition: Discharge to home or self care 07/08/2024 7:52 PM CREW LEADER - 07/09/2024 7:48 AM CREW LEADER Emergency [facility] Emergency Department [address] [place] [phone] Tri Martinez MD Thomas, Cherie Edwards MD Tracheostomy complication, unspecified complication type (HCC) (Primary Dx); Balanitis Discharge Disposition: Discharge to home or self care 06/12/2024 10:26 AM CREW LEADER - 06/28/2024 5:25 PM CREW LEADER Hospital Encounter [address] [phone] Shakila Jung MD Choi, Cheuk Ho Jeffrey, [...] 06/28/19 Active cloBAZam (ONFI) 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 Monitor with q4 accuchecks and SSI. Hypophosphatemia 06/27/2024 Assessment & Plan (06/28/2024 11:44 AM CREW LEADER): <0.7 ? 2/2 refeeding syndrome. Started on neutraphos 2pkg QID 06/26. Still Phos<0.7 06/27. Tx with IV NaPhos 30mmoles and cont per tube replacement and monitor closely. -06/28: Phos=3.3, reduce nuetraphos to 1 PKG BID and monitor History of DVT (deep vein thrombosis) 06/26/2024 Assessment & Plan (06/26/2024 1:32 PM CREW LEADER): -On anticoagulation with Eliquis 5 mg po BID for hx of DVT -per chart review hx of Left Subclavian vein DVT diagnosed 08/01/23 H/O: GI bleed 06/25/2024 Assessment & Plan (06/26/2024 1:32 PM CREW LEADER): - [facility] ( 06-07-24 [...] 06/25/2024 Assessment & Plan (06/26/2024 1:36 PM CREW LEADER): Tracheostomy dependence, has a Shiley #4 cuffed. Pt followed at [facility], per notes trach in place for pulmonary toilet due to his copious secretions and ongoing aspiration of his secretions. -needing frequent suctioning -sats stable on 28% FIO2 by HHTC -Was getting VEST at [facility] Low grade fever 06/20/2024 Assessment & Plan (06/26/2024 1:34 PM CREW LEADER): Low-grade fever and tachycardia, softer BP after [...] 06/17/2024 Assessment & Plan (06/28/2024 11:43 AM CREW LEADER): -patient at admission with a G tube, was getting continous tube feedings at [facility] and not tolerating, -was changed to [...] 12/14/22 (additional documented GJ tube procedures at [facility] most recent 09/09/23). Pt ' feeding tube fell off and pt had 18 [place] G tube placed at [facility] ED on 04/21/24 (records on care everywhere)and after that he has not tolerated well tube feedings per discussion with his sister Ms Hilliard,Adriane [phone] POA - consulted IR 06-20-24 for conversion [...] goal 06/25, adjust FWF per hydration status, shop and alteration tailor to follow up -On full TF's-osmolite 1.5. Phos repleted. Copious oral secretions 06/13/2024 Assessment & Plan (06/26/2024 1:29 PM CREW LEADER): Patient on chronic glycopyrrolate due to secretions, held at admission 07/01 to potential for constipation with plan to add back when he's had a bowel movements -resume on 06-19- hold on 06-20 due to somnolence. Suction PRN - restart glycopyrrolate 1mg BID 06/26 and monitor Abdominal pain 06/12/2024 Assessment & Plan (06/26/2024 1:23 PM CREW LEADER): -p/w abdominal distention from SNF to ED on 06-12 ,reported biliary emesis per fdc (approximately 300 cc) , not associated fevers or change in bowel habits. Feeding tube placed to gravity drainage in ED H&P notes regular bowel movements. CT scan on 06-12 in ED with stool in the rectum and sigmoid. [place] likely constipation contributing to the patient's abdominal [...] 06/12/2024 Assessment & Plan (06/26/2024 12:08 AM CREW LEADER): Complicated by left LE AKA. History of CVA (cerebrovascular accident) 2020 Assessment & Plan (06/26/2024 1:32 PM CREW LEADER): - hx of RT parietal CVA- hx of dementia Cont asa and statin Essential hypertension 12/11/2020 Assessment & Plan (06/26/2024 1:30 PM CREW LEADER): - on metoprolol and norvasc, held with soft BP 06-19 - resume metoprolol 06-21 -resume amlodipine 06-22 - Monitor Hyperlipidemia 12/11/2020 Assessment & Plan (06/12/2024 3:47 PM CREW LEADER): - Continue home statin Seizure 12/10/2020 Assessment & Plan (06/26/2024 1:36 PM CREW LEADER): History of seizure disorder secondary to traumatic brain injury. Currently on valproate, Vimpat, Keppra and Cobazam - Continue home medication, valproate level low at admit 48 on 06-12, 48 on 06-13, Valproic acid level 76 06-19 prior to dose, lacosamide level 1.4 on 06/12, 9.6 on 06-19 Followed by Neurology at [facility] Cognitive communication deficit 08/25/2020 Cerebrovascular accident [...] Smokeless Tobacco: Current Tobacco Cessation:Counseling Given: Yes [facility] Utilities Answer Date Recorded In the past 12 months has [employer] electric, gas, oil, or water company threatened [...] often do you attend chur ch or christian services? Never 06/18/2024 Do you belong to any clubs o r organizations such as moravian groups, unions, fraternal or athletic groups, or [...] any time in the past 12 m [facility], were you homeless or living in a custodial (including now)? No 06/18/2024 Personal Safety Answer Date Recorded Have you ever been in or are you currently in a harmful physical or emotional relationship or is someone making you feel afraid or unsafe? Denies 07/08/2024 Sex and Gender Information Value Date Recorded Sex Assigned at Not on file Legal Sex Male 6:11 AM CREW LEADER Gender Identity Not on file Sexual Orientation Not on file Last Filed Vital Signs Vital Sign Reading Time Taken Comments Blood Pressure 145/83 07/09/2024 6:00 AM CREW LEADER Pulse 91 07/09/2024 6:00 AM CREW LEADER Temperature 36.5 C (97.7 F) 07/09/2024 6:31 AM CREW LEADER Respiratory Rate 10 07/09/2024 6:00 AM CREW LEADER Oxygen Saturation 100% 07/09/2024 6:00 AM CREW LEADER Inhaled Oxygen Concentration - - Weight 79.8 kg (176 lb) 07/09/2024 2:16 AM CREW LEADER Height 182.9 cm (6') 07/09/2024 2:16 AM CREW LEADER Body Mass Index 23.87 07/09/2024 2:16 AM CREW LEADER Plan of Treatment Not on file Procedures Procedure Name Priority Date/Time Associated Diagnosis Comments POCT RAPID HIV ANTIBODY COMMUNITY SCREENING-ISSA ELIGIBLE STAT 07/09/2024 5:32 AM CREW LEADER SEPSIS LACTATE WITH REFLEX Timed 07/09/2024 4:33 AM CREW LEADER ED PERIPHERAL LINE INSERTION Routine 07/09/2024 1:18 AM CREW LEADER SEPSIS LACTATE WITH REFLEX Timed 07/09/2024 1:15 AM CREW LEADER RPR STAT 07/09/2024 1:15 AM CREW LEADER N. GONORRHOEAE/C. TRACHOMATIS AMPLIFICATION STAT 07/09/2024 1:02 AM CREW LEADER URINALYSIS AND REFLEX TO MICROSCOPIC AND CULTURE STAT 07/09/2024 1:02 AM CREW LEADER ED PERIPHERAL LINE INSERTION Routine 07/08/2024 10:[address] CHEST ABDOMEN PELVIS W CONTRAST ED 07/08/2024 9:55 PM CREW LEADER EGFR STAT 07/08/2024 8:56 PM CREW LEADER DIFFERENTIAL AUTO STAT 07/08/2024 8:5 6 PM CREW LEADER SEPSIS LACTATE WITH REFLEX STAT 07/08/2024 8:56 PM CREW LEADER LIPASE STAT 07/08/2024 8:56 PM CREW LEADER COMPREHENSIVE METABOLIC PANEL STAT 07/08/2024 8:56 PM CREW LEADER CBC WITH AUTO DIFFERENTIAL STAT 07/08/2024 8:56 PM CREW LEADER RESPIRATORY PATHOGEN PANEL STAT 07/08/2024 8:56 PM CREW LEADER ECG 12-LEAD Routine 07/08/2024 8:28 PM CREW LEADER XR CHEST 1 VIEW ED 07/08/2024 8:18 PM CREW LEADER POCT GLUCOSE DEVICE Routine 06/28/2024 4 :24 PM CREW LEADER POCT GLUCOSE DEVICE Routine 06/28/2024 1 2:30 PM CREW LEADER POCT GLUCOSE DEVICE Routine 06/28/2024 7 :43 AM CREW LEADER POCT GLUCOSE DEVICE Routine 06/28/2024 4 :01 AM CREW LEADER POCT GLUCOSE DEVICE Routine 06/27/2024 1 1:28 PM CREW LEADER EGFR Routine 06/27/2024 9:30 PM CREW LEADER PHOSPHORUS Routine 06/27/2024 9:30 PM CREW LEADER MAGNESIUM Routine 06/27/2024 9:30 PM CREW LEADER BASIC METABOLIC PANEL Routine 06/27/2024 9:30 PM CREW LEADER POCT GLUCOSE DEVICE Routine 06/27/2024 8 :39 PM CREW LEADER POCT GLUCOSE DEVICE Routine 06/27/2024 5 :10 PM CREW LEADER POCT GLUCOSE DEVICE Routine 06/27/2024 4 :27 PM CREW LEADER POCT GLUCOSE DEVICE Routine 06/27/2024 1 :06 PM CREW LEADER POCT GLUCOSE DEVICE Routine 06/27/2024 9 :59 AM CREW LEADER EGFR Routine 06/26/2024 10:21 PM CREW LEADER DIFFERENTIAL AUTO Routine 06/26/2024 10: 21 PM CREW LEADER PHOSPHORUS Routine 06/26/2024 10:21 PM CREW LEADER MAGNESIUM Routine 06/26/2024 10:21 PM CREW LEADER CBC WITH AUTO DIFFERENTIAL Routine 06/26/2024 10:21 PM CREW LEADER BASIC METABOLIC PANEL Routine 06/26/2024 10:21 PM CREW LEADER HEPATITIS B SURFACE ANTIGEN Routine 06/26/2024 10:21 PM CREW LEADER PHOSPHORUS Routine 06/26/2024 3:21 PM CREW LEADER RPR Routine 06/26/2024 3:21 PM CREW LEADER HEPATITIS C ANTIBODY Routine 06/26/2024 3:21 PM CREW LEADER HIV 1/2 ANTIBODY PLUS P24 ANTIGEN Routine 06/26/2024 3:21 PM CREW LEADER EGFR Routine 06/26/2024 12:16 AM CREW LEADER PHOSPHORUS Routine 06/26/2024 12:16 AM CREW LEADER MAGNESIUM Routine 06/26/2024 12:16 AM CREW LEADER BASIC METABOLIC PANEL Routine 06/26/2024 12:16 AM CREW LEADER POCT GLUCOSE DEVICE Routine 06/23/2024 1 1:36 AM CREW LEADER CBC WITHOUT DIFFERENTIAL Timed 06/23/2024 9:07 AM CREW LEADER VANCOMYCIN LEVEL TROUGH Routine 06/23/2024 9:00 AM CREW LEADER EGFR Routine 06/23/2024 9:00 AM CREW LEADER MAGNESIUM Routine 06/23/2024 9:00 AM CREW LEADER PHOSPHORUS Routine 06/23/2024 9:00 AM CREW LEADER BASIC METABOLIC PANEL Routine 06/23/2024 9:00 AM CREW LEADER G TO GJ-TUBE REPLACEMENT IP Routine 06/22/2024 1:24 PM CREW LEADER C. DIFFICILE TESTING Routine 06/21/2024 11:11 AM CREW LEADER INFECTION PREVENTION VRE CULTURE Routine 06/21/2024 11:10 AM CREW LEADER VANCOMYCIN LEVEL TROUGH Timed 06/21/2024 7:16 AM CREW LEADER EGFR Routine 06/21/2024 5:03 AM CREW LEADER DIFFERENTIAL AUTO Routine 06/21/2024 5:0 3 AM CREW LEADER PHOSPHORUS Timed 06/21/2024 5:03 AM CREW LEADER MAGNESIUM Routine 06/21/2024 5:03 AM CREW LEADER COMPREHENSIVE METABOLIC PANEL Routine 06/21/2024 5:03 AM CREW LEADER CBC WITH AUTO DIFFERENTIAL Routine 06/21/2024 5:03 AM CREW LEADER MSSA/MRSA (STAPHYLOCOCCUS AUREUS) CULTURE Routine 06/20/2024 10:30 PM CREW LEADER XR ABDOMEN AP 1 VIEW IP Routine 06/20/2024 10:29 AM CREW LEADER URINALYSIS, MICROSCOPIC ONLY Routine 06/19/2024 9:34 PM CREW LEADER URINALYSIS AND REFLEX TO MICROSCOPIC AND CULTURE Routine 06/19/2024 9:34 PM CREW LEADER DIFFERENTIAL AUTO Routine 06/19/2024 9:2 8 PM CREW LEADER CBC WITH AUTO DIFFERENTIAL Routine 06/19/2024 9:28 PM CREW LEADER VALPROIC ACID LEVEL, TOTAL Timed 06/19/2024 9:28 PM CREW LEADER LACOSAMIDE Routine 06/19/2024 9:28 PM CREW LEADER RESPIRATORY PATHOGEN PANEL Routine 06/19/2024 9:10 PM CREW LEADER AEROBIC CULTURE AND GRAM STAIN Routine 06/19/2024 6:53 PM CREW LEADER XR CHEST 1 VIEW IP Routine 06/19/2024 6:47 PM CREW LEADER RESPIRATORY PATHOGEN PANEL Routine 06/19/2024 6:46 PM CREW LEADER XR ABDOMEN AP 1 VIEW IP Routine 06/19/2024 4:09 PM CREW LEADER XR CHEST 1 VIEW IP Routine 06/19/2024 4:08 PM CREW LEADER EGFR Timed 06/19/2024 2:47 PM CREW LEADER DIFFERENTIAL AUTO Timed 06/19/2024 2:4 7 PM CREW LEADER PHOSPHORUS Timed 06/19/2024 2:47 PM CREW LEADER MAGNESIUM Timed 06/19/2024 2:47 PM CREW LEADER COMPREHENSIVE METABOLIC PANEL Timed 06/19/2024 2:47 PM CREW LEADER CBC WITH AUTO DIFFERENTIAL Timed 06/19/2024 2:47 PM CREW LEADER POCT GLUCOSE DEVICE Routine 06/19/2024 2 :25 PM CREW LEADER HEMOGLOBIN A1C Routine 06/12/2024 3:30 PM CREW LEADER TNI WITH LIPID PANEL Routine 08/24/2017 4:57 PM CDT from Last 3 Months or Most Recently Relevant to Health Maintenance Results * POCT Rapid HIV Antibody Community Screening-Issa Eligible (07/09/2024 5:32 AM CREW LEADER) [facility] Rapid HIV, POC Negative Negative Lot Number [id number] QC Control Line Acceptable Blood 07/09/2024 5:32 AM CREW LEADER Naa Tam MD POINT OF CARE TEST ORDER NICHOLE Final Result * Sepsis Lactate w/ Reflex (07/09/2024 4:33 AM CREW LEADER) Sepsis Lactate 2.0 0.7 - 2.0 mmol/L Blood 07/09/2024 4:33 AM CREW LEADER 07/09/2024 4:42 AM CREW LEADER Naa Tam MD LAB BLOOD ORDERABLES Fin al Result [facility] [place] [address] * ED PERIPHERAL LINE INSERTION (07/09/2024 1:18 AM CREW LEADER) Narrative Cherie Damian MD - 07/09/2024 1:18 AM CREW LEADER Atul Barba MD 07/09/2024 1:18 AM Peripheral [...] Sepsis Lactate w/ Reflex (07/09/2024 1:15 AM CREW LEADER) Sepsis Lactate 2.8(H) 0.7 - 2.0 mmol/L Blood 07/09/2024 1:15 AM CREW LEADER 07/09/2024 1:46 AM CREW LEADER Naa Tam MD LAB BLOOD ORDERABLES Fin al Result Performing Organization Address [facility] Co de Phone Number [facility] [place] [address] * RPR Blood (07/09/2024 1:15 AM CREW LEADER) RPR Nonreactive Nonreactive Blood 07/09/2024 1:15 AM CREW LEADER 07/09/2024 1:40 AM CREW LEADER Naa Tam MD LAB MICROBIOLOGY - GENER AL ORDERABLES Final Result Performing Organization Address [facility] de Phone Number [facility] [place] [address] * N. gonorrhoeae/C. trachomatis Amplification Urine (07/09/2024 1:02 AM CREW LEADER) C. trachomatis Not Detected Not Detected [facility] N. gonorrhoeae Not Detected Not Detected [facility] Comment: Interpretive Data This assay detects Chlamydia trachomatis and Neisseria gonorrhoeae by nucleic acid amplification testing (NAAT). This assay has been cleared by the [place] Food and Drug administration. The performance characteristics of this test have been verified by the [facility] Molecular Infectious Disease laboratory. The performance characteristics of this test have not been evaluated in individuals less than 14 years of age. Current Interpretive Data last revised 2023. Urine (None) 07/09/2024 1:02 AM CREW LEADER 07/09/2024 1:35 AM CREW LEADER us Naa Tam MD LAB MICROBIOLOGY - GENER AL ORDERABLES Final Result Performing Organization Address [facility] [place] [place] [address] [facility] * (ABNORMAL) Urinalysis reflex to microscopic and culture Urine, clean voided (07/09/2024 1:02 AM CREW LEADER) Color, ur Straw Yellow Clarity, ur Clear Clear [facility] Specific gravity, ur >1.042(H) 1.003 - 1.030 [facility] pH, urine 7.5 [facility] Comment: Interpretive Data U rine pH is affected by diet, medications, systemic acid-base disturbances, and renal tubular function. pH may affect urinary stone formation. For example, urine pH below 6.0 may help reduce the tendency for calcium phosphate stones and pH greater than 6.0 may reduce the tendency for uric acid stone formation. Source: [facility] Current Interpretive Data was last revised on 2017 Protein, ur ql Trace Negative [facility] Glucose, ur ql Negative Negative [facility] Ketones, ur Negative Negative [facility] Bilirubin, ur Negative Negative [facility] Blood, ur Negative Negative [facility] Urobilinogen, ur <2.0 <2.0 mg/dL [facility] Nitrite, ur Negative Negative [facility] Leukocyte esterase, ur Negative Negative [facility] UA reflex comment Reflex conditions for microscopic UA and culture not met. [facility] Urine, clean voided 07/09/2024 1:02 AM CREW LEADER 07/09/2024 1:15 AM CREW LEADER Naa Tam MD LAB MICROBIOLOGY - [facility] ORDERABLES Final Result [facility] Department [place] [address] * ED PERIPHERAL LINE INSERTION (07/08/2024 10:11 PM CREW LEADER) Narrative Tri Martinez MD - 07/08/2024 10:11 PM CREW LEADER Atul Barba MD 07/08/2024 10:12 PM Peripheral [...] Abdomen Pelvis W Contrast (07/08/2024 9:55 PM CREW LEADER) Anatomical Region Laterality Modality Body N/A Computed Tomogra phy 07/08/2024 10:3 2 PM CREW LEADER Impressions 07/09/2024 7:23 AM CREW LEADER Liquid stool within the colon, indicative of diarrheal state. Otherwise, no acute abnormalities in the abdomen or pelvis. Dictated by: Delia Morton MD The radiology attending physician has personally reviewed this study, and had reviewed and/or edited this written report and agrees with it. Electronically signed by: Marlon Kohler M.D. Narrative 07/09/2024 7:23 AM CREW LEADER EXAMINATION: Computed tomography of the chest, abdomen [...] Sepsis Lactate w/ Reflex (07/08/2024 8:56 PM CREW LEADER) Sepsis Lactate 2.4(H) 0.7 - 2.0 mmol/L Blood 07/08/2024 8:56 PM CREW LEADER 07/08/2024 9:24 PM CREW LEADER us Naa Tam MD LAB BLOOD ORDERABLES Fin al Result [facility] Department [place] [address] * eGFR (07/08/2024 8:56 PM CREW LEADER) eGFR >90 >=60 mL/min/1. 73 m2 Comment: [...] last reviewed 2021. Blood 07/08/2024 8:56 PM CREW LEADER 07/08/2024 9:26 PM CREW LEADER us Naa Tam MD LAB BLOOD ORDERABLES Fin al Result [facility] Department [place] [address] * Differential, auto (07/08/2024 8:56 PM CREW LEADER) Neutrophil abs 4.4 1.5 - 6.5 K/cumm Imm gran abs 0.0 0.0 - 0.1 K/cumm [facility] Lymphocyte abs 2.6 0.8 - 3.3 K/cumm [facility] Monocyte abs 0.5 0.2 - 0.8 K/cumm [facility] Eosinophil abs 0.5 0.0 - 0.5 K/cumm [facility] Basophil abs 0.0 0.0 - 0.1 K/cumm [facility] Neutrophil pct 54.7 % [facility] Comment: Interpretive Data Percent cell count reference ranges are not reported, since discordance with absolute values may lead to misinterpretation of CBC data. Current Interpretive Data was last revised on 2017. Imm gran pct 0.2 % [facility] Comment: Interpretive Data Percent cell count reference ranges are not reported, since discordance with absolute values may lead to misinterpretation of CBC data. Current Interpretive Data was last revised on 2017. Lymphocyte pct 32.1 % [facility] Comment: Interpretive Data Percent cell count reference ranges are not reported, since discordance with absolute values may lead to misinterpretation of CBC data. Current Interpretive Data was last revised on 2017. Monocyte pct 6.6 % [facility] Comment: Interpretive Data Percent cell count reference ranges are not reported, since discordance with absolute values may lead to misinterpretation of CBC data. Current Interpretive Data was last revised on 2017. Eosinophil pct 6.0 % [facility] Comment: Interpretive Data Percent cell count reference ranges are not reported, since discordance with absolute values may lead to misinterpretation of CBC data. Current Interpretive Data was last revised on 2017. Basophil pct 0.4 % [facility] Comment: Interpretive Data Percent cell count reference ranges are not reported, since discordance with absolute values may lead to misinterpretation of CBC data. Current Interpretive Data was last revised on 2017. Blood 07/08/2024 8:56 PM CREW LEADER 07/08/2024 9:27 PM CREW LEADER us Naa Tam MD LAB BLOOD ORDERABLES Fin al Result [facility] Department [place] [address] * Respiratory pathogen panel Nasopharyngeal (07/08/2024 8:56 PM CREW LEADER) Pathologist [facility] Influenza A RNA Not Detected Not Detected Influenza B RNA Not Detected Not Detected [facility] RSV RNA Not Detected Not Detected [facility] COVID-19 RNA Not Detected Not Detected [facility] Coronavirus 229E RNA Not Detected Not Detected [facility] Coronavirus HKU1 RNA Not Detected Not Detected [facility] Coronavirus NL63 RNA Not Detected Not Detected [facility] Coronavirus OC43 RNA Not Detected Not Detected [facility] Adenovirus DNA Not Detected Not Detected [facility] Metapneumovirus RNA Not Detected Not Detected [facility] Rhinovirus/Enterov irus RNA Not Detected Not Detected [facility] Parainfluenza 1 RNA Not Detected Not Detected [facility] Parainfluenza 2 RNA Not Detected Not Detected [facility] Parainfluenza 3 RNA Not Detected Not Detected [facility] Parainfluenza 4 RNA Not Detected Not Detected [facility] B. pertussis DNA Not Detected Not Detected [facility] B. parapertussis DNA Not Detected Not Detected [facility] C. pneumoniae DNA Not Detected Not Detected [facility] M. pneumoniae DNA Not Detected Not Detected [facility] Nasopharyngeal 07/08/2024 8: 56 PM CREW LEADER 07/08/2024 9:25 PM CREW LEADER N[facility]ative [facility] - 07/08/2024 10:16 PM CREW LEADER Is the Patient experiencing symptoms consistent with COVID?->Yes Surveillance testing for transplant patient?->No Interpretive Data The [employer] FilmArray Respiratory Panel (RP2.1) assay is a [...] assay has FDA clearance for testing of PIG FARMER swabs. The performance of additional specimen types has been assessed by the performing laboratory. The performance characteristics of this assay have been determined by [facility] Molecular Infectious Disease Laboratory. Current interpretive data was last revised on 22. us Naa Tam MD LAB MICROBIOLOGY - GENER AL ORDERABLES Final Result Performing Organization Address City/[facility]/ZIP Co de Phone Number [facility] [place] [address] * (ABNORMAL) CBC with auto differential (07/08/2024 8:56 PM CREW LEADER) WBC 8.0 3.8 - 9.9 K/cumm Hgb 14.4 13.0 - 17.5 g/dL [facility] Hct 43.3 38.9 - 50.3 % [facility] Plt 236 150 - 400 K/cumm [facility] MPV 12.4(H) 9.1 - 12.3 fL [facility] RBC 4.49 4.30 - 5.80 M/cumm [facility] MCV 96.4 81.3 - 96.4 fL [facility] MCH 32.1 27.1 - 33.3 pg [facility] MCHC 33.3 32.3 - 35.7 g/dL [facility] RDW CV 13.5 11.1 - 14.9 % [facility] RDW SD 47.9 35.7 - 48.1 fL [facility] NRBC abs 0.00 0.00 - 0.01 K/cumm [facility] Blood 07/08/2024 8:56 PM CREW LEADER 07/08/2024 9:27 PM CREW LEADER us Naa Tam MD LAB BLOOD ORDERABLES Fin al Result Performing Organization Address City/[facility]/ZIP Co de Phone Number [facility] [place] [address] * Lipase (07/08/2024 8:56 PM CREW LEADER) Lipase 32 10 - 99 Units/L Blood 07/08/2024 8:56 PM CREW LEADER 07/08/2024 9:26 PM CREW LEADER us Naa Tam MD LAB BLOOD ORDERABLES Fin al Result [facility] Department [place] [address] * (ABNORMAL) Comprehensive metabolic panel (07/08/2024 8:56 PM CREW LEADER) Pathologist [facility] Sodium 141 135 - 145 mmol/L Potassium, pl 4.5 3.3 - 4.9 mmol/L [facility] Chloride 102 97 - 110 mmol/L [facility] CO2 28 22 - 32 mmol/L [facility] Anion gap 11 2 - 15 mmol/L [facility] BUN 15 6 - 25 mg/dL [facility] Creatinine 0.63(L) 0.80 - 1.30 mg/dL [facility] Glucose 110 70 - 199 mg/dL [facility] Comment: Interpretive Data Fasting [...] 2022. Calcium 10.1 8.5 - 10.3 mg/dL [facility] Bilirubin, total 0.2 0.1 - 1.2 mg/dL [facility] Protein, pl 8.0 6.5 - 8.5 g/dL [facility] Albumin 4.1 3.5 - 5.0 g/dL [facility] Alk phos 110 40 - 130 Units/L [facility] ALT 28 7 - 55 Units/L [facility] AST 26 10 - 50 Units/L [facility] Blood 07/08/2024 8:56 PM CREW LEADER 07/08/2024 9:26 PM CREW LEADER us Naa Tam MD LAB BLOOD ORDERABLES Fin al Result Performing Organization Address City/[facility]/ZIP Co de Phone Number [facility] Department [place] [address] * ECG 12-LEAD (07/08/2024 8:28 PM CREW LEADER) Narrative [facility] - 07/08/2024 8:28 PM CREW LEADER Naa Tam MD 07/08/2024 8:30 PM ECG [...] Tam MD ECG ORDERABLES Final Re sult [facility] * XR Chest 1 View (07/08/2024 8:18 PM CREW LEADER) Anatomical Region Laterality Modality Body, Chest N/A Computed Radiogr aphy 07/08/2024 8:28 PM CREW LEADER Impressions 07/08/2024 9:56 PM CREW LEADER Comparison is made to chest graft dated [...] Sekou Wolf M.D. Narrative 07/08/2024 9:56 PM CREW LEADER EXAMINATION: 1 view chest radiograph Procedure Note [...] signed by: Sekou Wolf M.D. us Naa Tma MD IMG XR PROCEDURES Final Result * POCT glucose (06/28/2024 4:24 PM CREW LEADER) Glucose, POC 191 70 - 199 mg/dL Blood 06/28/2024 4:24 PM CREW LEADER 06/28/2024 4:24 PM CREW LEADER us Kami Dupont MD LAB POCT ORDERABLES - DEV ICE Final Result [facility] [place] [address] * POCT glucose (06/28/2024 12:30 PM CREW LEADER) Glucose, POC 197 70 - 199 mg/dL Blood 06/28/2024 12:3 0 PM CREW LEADER 06/28/2024 12:30 PM CREW LEADER us Kami Dupont MD LAB POCT ORDERABLES - DEV ICE Final Result Performing Organization Address [facility] [place] [address] * POCT glucose (06/28/2024 7:43 AM CREW LEADER) Glucose, POC 191 70 - 199 mg/dL Blood 06/28/2024 7:43 AM CREW LEADER 06/28/2024 7:43 AM CREW LEADER Kami Dupont MD LAB POCT ORDERABLES - DEV ICE Final Result Performing Organization Address [facility] [place] [address] * POCT glucose (06/28/2024 4:01 AM CREW LEADER) Glucose, POC 173 70 - 199 mg/dL Blood 06/28/2024 4:01 AM CREW LEADER 06/28/2024 4:01 AM CREW LEADER us Kami Dupont MD LAB POCT ORDERABLES - DEV ICE Final Result Performing Organization Address [facility] [place] [address] * (ABNORMAL) POCT glucose (06/27/2024 11:28 PM CREW LEADER) Glucose, POC 220(H) 70 - 199 mg/dL Comment:Use Protocol Glucose comment 1 Use Protocol [facility] Blood 06/27/2024 11:2 8 PM CREW LEADER 06/27/2024 11:28 PM CREW LEADER us Kami Dupont MD LAB POCT ORDERABLES - DEV ICE Final Result Performing Organization Address [facility]/ZIP Co de Phone Number [facility] Department [place] [address] * eGFR (06/27/2024 9:30 PM CREW LEADER) eGFR >90 >=60 mL/min/1. 73 m2 Comment: [...] last reviewed 2021. Blood 06/27/2024 9:30 PM CREW LEADER 06/27/2024 9:45 PM CREW LEADER us Kami Dupont MD LAB BLOOD ORDERABLES Lulu l Result Performing Organization Address [facility] de Phone Number [facility] Department [place] [address] * Phosphorus (06/27/2024 9:30 PM CREW LEADER) Phosphorus, pl 3.3 2.3 - 4.5 mg/dL Comment:Repeated and Verifie d Blood 06/27/2024 9:30 PM CREW LEADER 06/27/2024 9:45 PM CREW LEADER Kami Dupont MD LAB BLOOD ORDERABLES Lulu l Result Performing Organization Address [facility]/State/ZIP Co de Phone Number [facility] Department [place] [address] * Magnesium (06/27/2024 9:30 PM CREW LEADER) [facility] Magnesium 1.9 1.4 - 2.5 mg/dL Blood 06/27/2024 9:30 PM CREW LEADER 06/27/2024 9:45 PM CREW LEADER Kami Dupont MD LAB BLOOD ORDERABLES Lulu brijesh Result [facility] Department [place] [address] * (ABNORMAL) Basic metabolic panel (06/27/2024 9:30 PM CREW LEADER) [facility] Sodium 141 135 - 145 mmol/L Potassium, pl 4.4 3.3 - 4.9 mmol/L [facility] Chloride 105 97 - 110 mmol/L [facility] CO2 28 22 - 32 mmol/L [facility] Anion gap 8 2 - 15 mmol/L [facility] BUN 9 6 - 25 mg/dL [facility] Creatinine 0.47(L) 0.80 - 1.30 mg/dL [facility] Glucose 208(H) 70 - 199 mg/dL [facility] Comment: Interpretive Data Fasting [...] 2022. Calcium 8.9 8.5 - 10.3 mg/dL [facility] Blood 06/27/2024 9:30 PM CREW LEADER 06/27/2024 9:45 PM CREW LEADER Kami Dupont MD LAB BLOOD ORDERABLES Lulu l Result Performing Organization Address [facility] Co de Phone Number [facility] [place] [address] * POCT glucose (06/27/2024 8:39 PM CREW LEADER) Glucose, POC 195 70 - 199 mg/dL Blood 06/27/2024 8:39 PM CREW LEADER 06/27/2024 8:39 PM CREW LEADER Kami Dupont MD LAB POCT ORDERABLES - DEV ICE Final Result Performing Organization Address [facility] Phone Number [facility] [place] [address] * POCT glucose (06/27/2024 5:10 PM CREW LEADER) Glucose, POC 194 70 - 199 mg/dL Blood 06/27/2024 5:10 PM CREW LEADER 06/27/2024 5:10 PM CREW LEADER Kami Dupont MD LAB POCT ORDERABLES - DEV ICE Final Result Performing Organization Address [facility] de Phone Number [facility] [place] [address] * (ABNORMAL) POCT glucose (06/27/2024 4:27 PM CREW LEADER) Glucose, POC 224(H) 70 - 199 mg/dL Blood 06/27/2024 4:27 PM CREW LEADER 06/27/2024 4:27 PM CREW LEADER us Kami Dupont MD LAB POCT ORDERABLES - DEV ICE Final Result Performing Organization Address [facility] Co de Phone Number [facility] Department [place] [address] * POCT glucose (06/27/2024 1:06 PM CREW LEADER) Glucose, POC 173 70 - 199 mg/dL Blood 06/27/2024 1:06 PM CREW LEADER 06/27/2024 1:06 PM CREW LEADER Kami Dupont MD LAB POCT ORDERABLES - DEV ICE Final Result [facility] [place] [address] * POCT glucose (06/27/2024 9:59 AM CREW LEADER) Glucose, POC 158 70 - 199 mg/dL Blood 06/27/2024 9:59 AM CREW LEADER 06/27/2024 9:59 AM CREW LEADER Kami Dupont MD LAB POCT ORDERABLES - DEV ICE Final Result Performing Organization Address City/[facility] [place] [address] * eGFR (06/26/2024 10:21 PM CREW LEADER) eGFR >90 >=60 mL/min/1. 73 m2 Comment: [...] reviewed 2021. Blood 06/26/2024 10:2 1 PM CREW LEADER 06/26/2024 10:53 PM CREW LEADER us Kami Dupont MD LAB BLOOD ORDERABLES Lulu coley Result [facility] Department [place] [address] * Differential, auto (06/26/2024 10:21 PM CREW LEADER) Neutrophil abs 5.0 1.5 - 6.5 K/cumm Imm gran abs 0.0 0.0 - 0.1 K/cumm [facility] Lymphocyte abs 2.4 0.8 - 3.3 K/cumm [facility] Monocyte abs 0.8 0.2 - 0.8 K/cumm [facility] Eosinophil abs 0.4 0.0 - 0.5 K/cumm [facility] Basophil abs 0.0 0.0 - 0.1 K/cumm [facility] Neutrophil pct 58.2 % [facility] Comment: Interpretive Data Percent cell count reference ranges are not reported, since discordance with absolute values may lead to misinterpretation of CBC data. Current Interpretive Data was last revised on 2017. Imm gran pct 0.3 % [facility] Comment: Interpretive Data Percent cell count reference ranges are not reported, since discordance with absolute values may lead to misinterpretation of CBC data. Current Interpretive Data was last revised on 2017. Lymphocyte pct 27.9 % [facility] Comment: Interpretive Data Percent cell count reference ranges are not reported, since discordance with absolute values may lead to misinterpretation of CBC data. Current Interpretive Data was last revised on 2017. Monocyte pct 9.2 % [facility] Comment: Interpretive Data Percent cell count reference ranges are not reported, since discordance with absolute values may lead to misinterpretation of CBC data. Current Interpretive Data was last revised on 2017. Eosinophil pct 4.1 % [facility] Comment: Interpretive Data Percent cell count reference ranges are not reported, since discordance with absolute values may lead to misinterpretation of CBC data. Current Interpretive Data was last revised on 2017. Basophil pct 0.3 % [facility] Comment: Interpretive Data Percent cell count reference ranges are not reported, since discordance with absolute values may lead to misinterpretation of CBC data. Current Interpretive Data was last revised on 2017. Blood 06/26/2024 10:2 1 PM CREW LEADER 06/26/2024 10:53 PM CREW LEADER us Kami Dupont MD LAB BLOOD ORDERABLES Lulu coley Result [facility] Department [place] [address] * (ABNORMAL) CBC with auto differential (06/26/2024 10:21 PM CREW LEADER) Pathologist [facility] WBC 8.6 3.8 - 9.9 K/cumm Hgb 13.1 13.0 - 17.5 g/dL [facility] Hct 39.1 38.9 - 50.3 % [facility] Plt 173 150 - 400 K/cumm [facility] MPV 13.1(H) 9.1 - 12.3 fL [facility] RBC 4.07(L) 4.30 - 5.80 M/cumm [facility] MCV 96.1 81.3 - 96.4 fL [facility] MCH 32.2 27.1 - 33.3 pg [facility] MCHC 33.5 32.3 - 35.7 g/dL [facility] RDW CV 13.5 11.1 - 14.9 % [facility] RDW SD 47.8 35.7 - 48.1 fL [facility] NRBC abs 0.00 0.00 - 0.01 K/cumm [facility] Blood 06/26/2024 10:2 1 PM CREW LEADER 06/26/2024 10:53 PM CREW LEADER Kami Dupont MD LAB BLOOD ORDERABLES Lulu l Result Performing Organization Address [facility] de Phone Number [facility] Department [place] [address] * Hepatitis B Surface Antigen Blood (06/26/2024 10:21 PM CREW LEADER) HepBsAg Nonreactive Nonreactive Blood 06/26/2024 10:2 1 PM CREW LEADER 06/26/2024 10:53 PM CREW LEADER Kami Dupont MD LAB MICROBIOLOGY - GENERA L ORDERABLES Final Result Performing Organization Address [facility] Phone Number [facility] Department [place] [address] * (ABNORMAL) Phosphorus (06/26/2024 10:21 PM CREW LEADER) Phosphorus, pl <0.7(L) 2.3 - 4.5 mg/dL Comment:Repeated and Verifie d Blood 06/26/2024 10:2 1 PM CREW LEADER 06/26/2024 10:53 PM CREW LEADER Kami Dupont MD LAB BLOOD ORDERABLES Lulu l Result Performing Organization Address [facility] de Phone Number [facility] Department [place] [address] * Magnesium (06/26/2024 10:21 PM CREW LEADER) Magnesium 2.0 1.4 - 2.5 mg/dL Blood 06/26/2024 10:2 1 PM CREW LEADER 06/26/2024 10:53 PM CREW LEADER Kami Dupont MD LAB BLOOD ORDERABLES Lulu l Result Performing Organization Address [facility]/ZIP Co de Phone Number [facility] Department [place] [address] * (ABNORMAL) Basic metabolic panel (06/26/2024 10:21 PM CREW LEADER) Pathologist [facility] Sodium 141 135 - 145 mmol/L Potassium, pl 4.7 3.3 - 4.9 mmol/L [facility] Chloride 106 97 - 110 mmol/L [facility] CO2 28 22 - 32 mmol/L [facility] Anion gap 7 2 - 15 mmol/L [facility] BUN 11 6 - 25 mg/dL [facility] Creatinine 0.47(L) 0.80 - 1.30 mg/dL [facility] Glucose 213(H) 70 - 199 mg/dL [facility] Comment: Interpretive Data Fasting [...] 2022. Calcium 9.3 8.5 - 10.3 mg/dL [facility] Blood 06/26/2024 10:2 1 PM CREW LEADER 06/26/2024 10:53 PM CREW LEADER us Kami Dupont MD LAB BLOOD ORDERABLES Lulu coley Result [facility] Department [place] [address] * HIV 1/2 Antibody plus p24 Antigen Blood (06/26/2024 3:21 PM CREW LEADER) Pathologist [facility] HIV 1/2 ab + p24 ag Nonreactive Nonreactive Comment:Nonreactive for HIV- 1 antigen and HIV-1/HIV-2 antibodies. No laboratory evidence of HIV infection. If acute HIV infection is suspected, consider testing for HIV-1 RNA. Current interpretive data was last revised on 22. Blood 06/26/2024 3:21 PM CREW LEADER 06/26/2024 3:41 PM CREW LEADER Kami Dupont MD LAB MICROBIOLOGY - GENERA L ORDERABLES Final Result Performing Organization Address [facility] de Phone Number [facility] [place] [address] * Hepatitis C antibody Blood (06/26/2024 3:21 PM CREW LEADER) Pathologist [facility] Hep C Ab Nonreactive Nonreactive Comment:Antibodies to HCV no t detected. Does NOT exclude the possibility of recent exposure to HCV. Current interpretive data was last revised on 22 Blood 06/26/2024 3:21 PM CREW LEADER 06/26/2024 3:41 PM CREW LEADER Kami Dupont MD LAB MICROBIOLOGY - GENERA L ORDERABLES Final Result Performing Organization Address [facility] de Phone Number [facility] [place] [address] * RPR Blood (06/26/2024 3:21 PM CREW LEADER) Pathologist [facility] RPR Nonreactive Nonreactive Blood 06/26/2024 3:21 PM CREW LEADER 06/26/2024 3:41 PM CREW LEADER Kami Dupont MD LAB MICROBIOLOGY - GENERA L ORDERABLES Final Result Performing Organization Address [facility] de Phone Number [facility] [place] [address] * (ABNORMAL) Phosphorus (06/26/2024 3:21 PM CREW LEADER) Pathologist [facility] Phosphorus, pl 0.7(L) 2.3 - 4.5 mg/dL Comment:Repeated and Verifie d Blood 06/26/2024 3:21 PM CREW LEADER 06/26/2024 3:41 PM CREW LEADER us Kami Dupont MD LAB BLOOD ORDERABLES Lulu l Result Performing Organization Address [facility] Co de Phone Number [facility] [place] [address] * eGFR (06/26/2024 12:16 AM CREW LEADER) eGFR >90 >=60 mL/min/1. 73 m2 Comment: [...] reviewed 2021. Blood 06/26/2024 12:1 6 AM CREW LEADER 06/26/2024 12:39 AM CREW LEADER us Patricia Bryatn MD LAB BLOOD ORDERABLES Final Res ult Performing Organization Address [facility] Co de Phone Number [facility] [place] [address] * (ABNORMAL) Phosphorus (06/26/2024 12:16 AM CREW LEADER) Phosphorus, pl <0.7(L) 2.3 - 4.5 mg/dL Comment:Repeated and Verifie d Blood 06/26/2024 12:1 6 AM CREW LEADER 06/26/2024 12:39 AM CREW LEADER Patricia Bryant MD LAB BLOOD ORDERABLES Final Res ult Performing Organization Address [facility] Co de Phone Number [facility] [place] [address] * Magnesium (06/26/2024 12:16 AM CREW LEADER) Pathologist [facility] Magnesium 1.9 1.4 - 2.5 mg/dL Blood 06/26/2024 12:1 6 AM CREW LEADER 06/26/2024 12:39 AM CREW LEADER Patricia Bryant MD LAB BLOOD ORDERABLES Final Res ult Performing Organization Address [facility] de Phone Number [facility] [place] [address] * (ABNORMAL) Basic metabolic panel (06/26/2024 12:16 AM CREW LEADER) Pathologist [facility] Sodium 142 135 - 145 mmol/L Potassium, pl 4.4 3.3 - 4.9 mmol/L [facility] Comment:Hemolyzed; Potassium value may be falsely elevated by as much as 0.3-0.5 mmol/L. Suggest redraw and reanalysis. Chloride 109 97 - 110 mmol/L [facility] CO2 29 22 - 32 mmol/L [facility] Anion gap 4 2 - 15 mmol/L [facility] BUN 13 6 - 25 mg/dL [facility] Creatinine 0.53(L) 0.80 - 1.30 mg/dL [facility] Glucose 177 70 - 199 mg/dL [facility] Comment: Interpretive Data Fasting [...] 2022. Calcium 9.0 8.5 - 10.3 mg/dL [facility] Blood 06/26/2024 12:1 6 AM CREW LEADER 06/26/2024 12:39 AM CREW LEADER Patricia Bryant MD LAB BLOOD ORDERABLES Final Res ult Performing Organization Address City/[facility]/ZIP Co de Phone Number [facility] [place] [address] * POCT glucose (06/23/2024 11:36 AM CREW LEADER) Glucose, POC 95 70 - 199 mg/dL Blood 06/23/2024 11:3 6 AM CREW LEADER 06/23/2024 11:36 AM CREW LEADER Patricia Bryant MD LAB POCT ORDERABLES - DEVICE F inal Result Performing Organization Address [facility] Co de Phone Number [facility] [place] [address] * (ABNORMAL) CBC without differential (06/23/2024 9:07 AM CREW LEADER) [facility] Signature WBC 4.7 3.8 - 9.9 K/cumm Hgb 12.5(L) 13.0 - 17.5 g/dL [facility] Hct 37.4(L) 38.9 - 50.3 % [facility] Plt 145(L) 150 - 400 K/cumm [facility] MPV 12.6(H) 9.1 - 12.3 fL [facility] RBC 3.94(L) 4.30 - 5.80 M/cumm [facility] MCV 94.9 81.3 - 96.4 fL [facility] MCH 31.7 27.1 - 33.3 pg [facility] MCHC 33.4 32.3 - 35.7 g/dL [facility] RDW CV 12.9 11.1 - 14.9 % [facility] RDW SD 45.1 35.7 - 48.1 fL [facility] NRBC abs 0.00 0.00 - 0.01 K/cumm [facility] Blood 06/23/2024 9:07 AM CREW LEADER 06/23/2024 9:28 AM CREW LEADER us Patricia Bryant MD LAB BLOOD ORDERABLES Final Res ult [facility] Department [place] [address] * eGFR (06/23/2024 9:00 AM CREW LEADER) eGFR >90 >=60 mL/min/1. 73 m2 Comment: [...] last reviewed 2021. Blood 06/23/2024 9:00 AM CREW LEADER 06/23/2024 10:59 AM CREW LEADER us Patricia Bryant MD LAB BLOOD ORDERABLES Final Res ult [facility] [place] [address] * Phosphorus (06/23/2024 9:00 AM CREW LEADER) Pathologist [facility] Phosphorus, pl 2.3 2.3 - 4.5 mg/dL Blood 06/23/2024 9:00 AM CREW LEADER 06/23/2024 10:59 AM CREW LEADER us Patricia Bryant MD LAB BLOOD ORDERABLES Final Res ult Performing Organization Address City/[facility] [place] [address] * Magnesium (06/23/2024 9:00 AM CREW LEADER) [facility] Magnesium 1.7 1.4 - 2.5 mg/dL Blood 06/23/2024 9:00 AM CREW LEADER 06/23/2024 10:59 AM CREW LEADER us Patricia Bryant MD LAB BLOOD ORDERABLES Final Res ult Performing Organization Address City/[facility]/ZIP Co de Phone Number [facility] [place] [address] * Vancomycin level trough (06/23/2024 9:00 AM CREW LEADER) [facility] Vancomycin trough 15.2 10.0 - 20.0 mcg/mL Blood 06/23/2024 9:00 AM CREW LEADER 06/23/2024 10:59 AM CREW LEADER us Patricia Bryant MD LAB BLOOD ORDERAB[place] [address] * (ABNORMAL) Basic metabolic panel (06/23/2024 9:00 AM CREW LEADER) Sodium 143 135 - 145 mmol/L Potassium, pl 3.7 3.3 - 4.9 mmol/L [facility] Chloride 108 97 - 110 mmol/L [facility] CO2 28 22 - 32 mmol/L [facility] Anion gap 7 2 - 15 mmol/L [facility] BUN 3(L) 6 - 25 mg/dL [facility] Creatinine 0.50(L) 0.80 - 1.30 mg/dL [facility] Glucose 271(H) 70 - 199 mg/dL [facility] Comment: Interpretive Data Fasting [...] 2022. Calcium 9.0 8.5 - 10.3 mg/dL [facility] Blood 06/23/2024 9:00 AM CREW LEADER 06/23/2024 10:59 AM CREW LEADER us Patricia Bryant MD LAB BLOOD ORDERABLES Final Res ult [facility] [place] [address] * IR G To GJ-Tube Replacement (06/22/2024 1:24 PM CREW LEADER) Anatomical Region Laterality Modality Body N/A X-Ray Angiograph y 06/22/2024 1:47 PM CREW LEADER Impressions 06/22/2024 4:13 PM CREW LEADER Successful percutaneous 18 Fr 45 cm gastrojejunostomy [...] Sean Hillman M.D. Narrative 06/22/2024 4:13 PM CREW LEADER EXAMINATION: GASTROJEJUNOSTOMY TUBE EXCHANGE HISTORY/INDICATION: 64 yo [...] procedure. TECHNIQUE: Prior to beginning the procedure, [place] Protocol was performed to confirm the patient's [...] placed in the proximal jejunum. A 18 Panamanian, 45 cm long JELLY single/double lumen gastrojejunostomy [...] procedure. TECHNIQUE: Prior to beginning the procedure, [place] Protocol was performed to confirm the patient's [...] placed in the proximal jejunum. A 18 Panamanian, 45 cm long JELLY single/double lumen gastrojejunostomy [...] by: Sean Hillman M.D. Patricia Bryant MD [facility] IR PROCEDURES Final Result * C. difficile testing Stool (06/21/2024 11:11 AM CREW LEADER) [facility] Result Negative Negative Toxin Result Negative Negative [facility] C. diff result Negative, free toxin Negative, free toxin [facility] C. diff interp Negative for toxigenic Clostridioides (Clostridium) difficile. Analysis was performed using a glutamate dehydrogenase antigen detection assay combined with a C. difficile toxin detection assay. [facility] Stool 06/21/2024 11:1 1 AM CREW LEADER 06/21/2024 12:55 PM CREW LEADER Narrative [facility] 06/21/2024 2:38 PM CREW LEADER Testing for C. difficile is not recommended within 4 days of a negative result, 10 days of a positive, or 24 hours after laxative administration. If this order is clinically indicated, contact the lab and enter the passcode to complete this order.->[id number] us Patricia Bryant MD LAB MICROBIOLOGY - GENERAL ORD ERABLES Final Result Performing Organization Address [facility] de Phone Number [facility] [place] [address] * Infection Prevention VRE Culture Stool (06/21/2024 11:10 AM CREW LEADER) Report Final Report: Negative Stool 06/21/2024 11:1 0 AM CREW LEADER 06/21/2024 2:41 PM CREW LEADER Narrative [facility] 06/23/2024 11:15 PM CREW LEADER Surveillance culture for Infection Prevention purposes only; results indicate colonization, not infection requiring treatment. Testing performed by [facility]biology Laboratory ([phone]). Result Rose Bryant MD LAB MICROBIOLOGY - GENERAL ORD ERABLES Final Result Performing Organization Address [facility] Phone Number [facility] [place] [address] * Vancomycin level trough Draw trough 30 minutes prior to 4th dose. (06/21/2024 7:16 AM CREW LEADER) Vancomycin trough 16.8 10.0 - 20.0 mcg/mL Blood 06/21/2024 7:16 AM CREW LEADER 06/21/2024 7:27 AM CREW LEADER Narrative [facility] 06/21/2024 8:10 AM CREW LEADER Draw trough 30 minutes prior to 4th dose. us Patricia Bryant MD LAB BLOOD ORDERABLES Final Res ult Performing Organization Address [facility]/ZIP Co de Phone Number [facility] Department [place] [address] * eGFR (06/21/2024 5:03 AM CREW LEADER) eGFR >90 >=60 mL/min/1. 73 m2 Comment: [...] last reviewed 2021. Blood 06/21/2024 5:03 AM CREW LEADER 06/21/2024 5:14 AM CREW LEADER us Patricia Bryant MD LAB BLOOD ORDERABLES Final Res ult [facility] Department [place] [address] * Differential, auto (06/21/2024 5:03 AM CREW LEADER) Neutrophil abs 1.7 1.5 - 6.5 K/cumm Imm gran abs 0.0 0.0 - 0.1 K/cumm [facility] Lymphocyte abs 1.7 0.8 - 3.3 K/cumm [facility] Monocyte abs 0.6 0.2 - 0.8 K/cumm [facility] Eosinophil abs 0.3 0.0 - 0.5 K/cumm [facility] Basophil abs 0.0 0.0 - 0.1 K/cumm [facility] Neutrophil pct 38.8 % [facility] Comment: Interpretive Data Percent cell count reference ranges are not reported, since discordance with absolute values may lead to misinterpretation of CBC data. Current Interpretive Data was last revised on 2017. Imm gran pct 0.2 % [facility] Comment: Interpretive Data Percent cell count reference ranges are not reported, since discordance with absolute values may lead to misinterpretation of CBC data. Current Interpretive Data was last revised on 2017. Lymphocyte pct 40.5 % [facility] Comment: Interpretive Data Percent cell count reference ranges are not reported, since discordance with absolute values may lead to misinterpretation of CBC data. Current Interpretive Data was last revised on 2017. Monocyte pct 13.4 % [facility] Comment: Interpretive Data Percent cell count reference ranges are not reported, since discordance with absolute values may lead to misinterpretation of CBC data. Current Interpretive Data was last revised on 2017. Eosinophil pct 6.6 % [facility] Comment: Interpretive Data Percent cell count reference ranges are not reported, since discordance with absolute values may lead to misinterpretation of CBC data. Current Interpretive Data was last revised on 2017. Basophil pct 0.5 % [facility] Comment: Interpretive Data Percent cell count reference ranges are not reported, since discordance with absolute values may lead to misinterpretation of CBC data. Current Interpretive Data was last revised on 2017. Blood 06/21/2024 5:03 AM CREW LEADER 06/21/2024 5:14 AM CREW LEADER us Patricia Bryant MD LAB BLOOD ORDERABLES Final Res ult [facility] [place] [address] * (ABNORMAL) CBC with auto differential (06/21/2024 5:03 AM CREW LEADER) WBC 4.3 3.8 - 9.9 K/cumm Hgb 11.6(L) 13.0 - 17.5 g/dL [facility] Hct 34.5(L) 38.9 - 50.3 % [facility] Plt 132(L) 150 - 400 K/cumm [facility] MPV 11.3 9.1 - 12.3 fL [facility] RBC 3.53(L) 4.30 - 5.80 M/cumm [facility] MCV 97.7(H) 81.3 - 96.4 fL [facility] MCH 32.9 27.1 - 33.3 pg [facility] MCHC 33.6 32.3 - 35.7 g/dL [facility] RDW CV 13.4 11.1 - 14.9 % [facility] RDW SD 48.0 35.7 - 48.1 fL [facility] NRBC abs 0.00 0.00 - 0.01 K/cumm [facility] Blood 06/21/2024 5:03 AM CREW LEADER 06/21/2024 5:14 AM CREW LEADER Patricia Bryant MD LAB BLOOD ORDERABLES Final Res ult [facility] [place] [address] * Phosphorus (06/21/2024 5:03 AM CREW LEADER) Phosphorus, pl 3.1 2.3 - 4.5 mg/dL Blood 06/21/2024 5:03 AM CREW LEADER 06/21/2024 5:14 AM CREW LEADER Patricia Bryant MD LAB BLOOD ORDERABLES Final Res ult [facility] [place] [address] * Magnesium (06/21/2024 5:03 AM CREW LEADER) Magnesium 1.9 1.4 - 2.5 mg/dL Blood 06/21/2024 5:03 AM CREW LEADER 06/21/2024 5:14 AM CREW LEADER us Patricia Bryant MD LAB BLOOD ORDERABLES Final Res ult [facility] Department [place] [address] * (ABNORMAL) Comprehensive metabolic panel (06/21/2024 5:03 AM CREW LEADER) Sodium 145 135 - 145 mmol/L Potassium, pl 3.4 3.3 - 4.9 mmol/L [facility] Chloride 112(H) 97 - 110 mmol/L [facility] CO2 27 22 - 32 mmol/L [facility] Anion gap 6 2 - 15 mmol/L [facility] BUN 9 6 - 25 mg/dL [facility] Creatinine 0.57(L) 0.80 - 1.30 mg/dL [facility] Glucose 106 70 - 199 mg/dL [facility] Comment: Interpretive Data Fasting [...] Calcium 8.6 8.5 - 10.3 mg/dL [facility] Bilirubin, total 0.2 0.1 - 1.2 mg/dL [facility] Protein, pl 5.6(L) 6.5 - 8.5 g/dL [facility] Albumin 2.7(L) 3.5 - 5.0 g/dL [facility] Alk phos 61 40 - 130 Units/L [facility] ALT 15 7 - 55 Units/L [facility] AST 25 10 - 50 Units/L [facility] Blood 06/21/2024 5:03 AM CREW LEADER 06/21/2024 5:14 AM CREW LEADER Patricia Bryant MD LAB BLOOD ORDERABLES Final Res ult Performing Organization Address City/[facility]/ZIP Co de Phone Number [facility] [place] [address] * (ABNORMAL) MSSA/MRSA (Staphylococcus aureus) Culture Nasal (06/20/2024 10:30 PM CREW LEADER) Report Final Report: 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 Patricia Bryant MD LAB MICROBIOLOGY - GENERAL ORD ERABLES Final Result Performing Organization Address [facility] Co de Phone Number [facility] [place] [address] * XR Abdomen Ap 1 Vw (06/20/2024 10:29 AM CREW LEADER) Anatomical Region Laterality Modality Body, Abdomen N/A Computed Radiogr aphy 06/20/2024 10:5 3 AM CREW LEADER Impressions 06/20/2024 11:51 AM CREW LEADER Gastrostomy tube. Colonic distention is improved. No radiographic evidence of obstruction. Dictated by: Hunter Hernandez M.D. (Ramanan) The radiology attending physician has personally reviewed this study, and had reviewed and/or edited this written report and agrees with it. Electronically signed by: Byron Moya M.D. Narrative 06/20/2024 11:51 AM CREW LEADER EXAMINATION: Abdomen, one view. HISTORY: Abdominal distention. [...] and culture Urine, bladder (06/19/2024 9:34 PM CREW LEADER) Color, ur Straw Yellow Clarity, ur Clear Clear [facility] Specific gravity, ur 1.021 1.003 - 1.030 [facility] pH, urine 7.0 [facility] Comment: Interpretive Data U rine pH is affected by diet, medications, systemic acid-base disturbances, and renal tubular function. pH may affect urinary stone formation. For example, urine pH below 6.0 may help reduce the tendency for calcium phosphate stones and pH greater than 6.0 may reduce the tendency for uric acid stone formation. Source: [place] [employer] Current Interpretive Data was last revised on [...] Reflex to microscopic UA will be performed. [facility] Urine, bladder 06/19/2024 9: 34 PM CREW LEADER 06/19/2024 10:05 PM CREW LEADER Patricia Bryant MD LAB MICROBIOLOGY - GENERAL ORD ERABLES Final Result Performing Organization Address City/[facility]/ZIP Co de Phone Number [facility] [place] [address] * Urinalysis, microscopic only (06/19/2024 9:34 PM CREW LEADER) WBC, ur 0-5 0 - 5 /HPF RBC, ur 0-2 0 - 2 /HPF [facility] Epithelial cells, squamous, ur 1-5 0 - 5 /HPF [facility] Culture Reflex Comment Reflex conditions for urine culture (WBC >10) not met. [facility] Urine, bladder 06/19/2024 9: 34 PM CREW LEADER 06/19/2024 10:05 PM CREW LEADER Patricia Bryant MD LAB URINE ORDERABLES Final Res ult Performing Organization Address [facility] Co de Phone Number [facility] [place] [address] * (ABNORMAL) Differential, auto (06/19/2024 9:28 PM CREW LEADER) Pathologist [facility] Neutrophil abs 6.0 1.5 - 6.5 K/cumm Imm gran abs 0.0 0.0 - 0.1 K/cumm [facility] Lymphocyte abs 0.7(L) 0.8 - 3.3 K/cumm [facility] Monocyte abs 0.2 0.2 - 0.8 K/cumm [facility] Eosinophil abs 0.2 0.0 - 0.5 K/cumm [facility] Basophil abs 0.0 0.0 - 0.1 K/cumm [facility] Neutrophil pct 84.1 % [facility] Comment: Interpretive Data Percent cell count reference ranges are not reported, since discordance with absolute values may lead to misinterpretation of CBC data. Current Interpretive Data was last revised on 2017. Imm gran pct 0.4 % [facility] Comment: Interpretive Data Percent cell count reference ranges are not reported, since discordance with absolute values may lead to misinterpretation of CBC data. Current Interpretive Data was last revised on 2017. Lymphocyte pct 10.1 % [facility] Comment: Interpretive Data Percent cell count reference ranges are not reported, since discordance with absolute values may lead to misinterpretation of CBC data. Current Interpretive Data was last revised on 2017. Monocyte pct 2.9 % [facility] Comment: Interpretive Data Percent cell count reference ranges are not reported, since discordance with absolute values may lead to misinterpretation of CBC data. Current Interpretive Data was last revised on 2017. Eosinophil pct 2.4 % [facility] Comment: Interpretive Data Percent cell count reference ranges are not reported, since discordance with absolute values may lead to misinterpretation of CBC data. Current Interpretive Data was last revised on 2017. Basophil pct 0.1 % [facility] Comment: Interpretive Data Percent cell count reference ranges are not reported, since discordance with absolute values may lead to misinterpretation of CBC data. Current Interpretive Data was last revised on 2017. Blood 06/19/2024 9:2 8 PM CREW LEADER 06/19/2024 10:38 PM CREW LEADER us Patricia Bryant MD LAB BLOOD ORDERABLES Final Res ult [facility] [place] [address] * Lacosamide level (06/19/2024 9:28 PM CREW LEADER) Lacosamide 9.6 1.0 - 10.0 mcg/mL [facility] Comment: ADDITIONAL INFORMATION This test was developed and its performance characteristics determined by [facility] in a manner consistent with CLIA requirements. This test has not been cleared or approved by the U.S. Food and Drug Administration. Test Performed by: [facility] [place] [id number] [place] [address] [place] Man: Marianela Odonnell Ph.D.; CLIA# [id number] Blood 06/19/2024 9:28 PM CREW LEADER 06/19/2024 11:01 PM CREW LEADER Narrative [facility] - 06/22/2024 10:25 AM CREW LEADER Please get level before lacosamide dose is given Patricia Bryant MD LAB BLOOD ORDERABLES Final Res ult Performing Organization Address City/[facility]/ZIP Co de Phone Number [facility] [place] [address] [facility] * (ABNORMAL) CBC with auto differential (06/19/2024 9:28 PM CREW LEADER) [facility] WBC 7.1 3.8 - 9.9 K/cumm Hgb 12.5(L) 13.0 - 17.5 g/dL [facility] Hct 37.0(L) 38.9 - 50.3 % [facility] Plt 152 150 - 400 K/cumm [facility] MPV 12.6(H) 9.1 - 12.3 fL [facility] RBC 3.90(L) 4.30 - 5.80 M/cumm [facility] MCV 94.9 81.3 - 96.4 fL [facility] MCH 32.1 27.1 - 33.3 pg [facility] MCHC 33.8 32.3 - 35.7 g/dL [facility] RDW CV 13.4 11.1 - 14.9 % [facility] RDW SD 46.8 35.7 - 48.1 fL [facility] NRBC abs 0.00 0.00 - 0.01 K/cumm [facility] Blood 06/19/2024 9:28 PM CREW LEADER 06/19/2024 10:38 PM CREW LEADER Patricia Bryant MD LAB BLOOD ORDERABLES Final Res ult [facility] [place] [address] * Valproic acid level, total (06/19/2024 9:28 PM CREW LEADER) [facility] Valproic Acid 76.0 50.0 - 100.0 mcg/mL Comment: Interpretive Data Therapeutic or toxic effects of anticonvulsant drugs may occur at different concentrations in different patients and the correlation between dose and clinical effect must be evaluated individually. Current interpretative data was last revised on 13. Blood 06/19/2024 9:28 PM CREW LEADER 06/19/2024 10:39 PM CREW LEADER Narrative [facility] - 06/19/2024 11:40 PM CREW LEADER Please get level before dose is given us Patricia Bryant MD LAB BLOOD ORDERABLES Final Res ult [facility] [place] [address] * Respiratory pathogen panel Nasopharyngeal (06/19/2024 9:10 PM CREW LEADER) [facility] Influenza A RNA Not Detected Not Detected Influenza B RNA Not Detected Not Detected [facility] RSV RNA Not Detected Not Detected [facility] COVID-19 RNA Not Detected Not Detected [facility] Coronavirus 229E RNA Not Detected Not Detected [facility] Coronavirus HKU1 RNA Not Detected Not Detected [facility] Coronavirus NL63 RNA Not Detected Not Detected [facility] Coronavirus OC43 RNA Not Detected Not Detected [facility] Adenovirus DNA Not Detected Not Detected [facility] Metapneumovirus RNA Not Detected Not Detected [facility] Rhinovirus/Enterov irus RNA Not Detected Not Detected [facility] Parainfluenza 1 RNA Not Detected Not Detected [facility] Parainfluenza 2 RNA Not Detected Not Detected [facility] Parainfluenza 3 RNA Not Detected Not Detected [facility] Parainfluenza 4 RNA Not Detected Not Detected [facility] B. pertussis DNA Not Detected Not Detected [facility] B. parapertussis DNA Not Detected Not Detected [facility] C. pneumoniae DNA Not Detected Not Detected [facility] M. pneumoniae DNA Not Detected Not Detected [facility] Nasopharyngeal 06/19/2024 9: 10 PM CREW LEADER 06/19/2024 10:06 PM CREW LEADER Katey [facility] - 06/19/2024 11:35 PM CREW LEADER Is the Patient experiencing symptoms consistent with COVID?->Yes Surveillance testing for transplant patient?->No Interpretive Data The [employer]ur[employer] FilmArray Respiratory Panel (RP2.1) assay is a [...] assay has FDA clearance for testing of PIG FARMER swabs. The performance of additional specimen types has been assessed by the performing laboratory. The performance characteristics of this assay have been determined by [facility] Molecular Infectious Disease Laboratory. Current interpretive data was last revised on 22. Patricia Bryant MD LAB MICROBIOLOGY - GENERAL ORD ERABLES Final Result Performing Organization Address [facility] Co de Phone Number [facility] [place] [address] * (ABNORMAL) Aerobic culture and gram stain Tracheal aspirate Tracheal (06/19/2024 6:53 PM CREW LEADER) Direct Specimen Exam Stain: Abundant polymorphonuclear leukocytes seen. Few squamous epithelial cells seen. Moderate mixed bacterial domenico seen on Gram stain. Report Final Report: Greater than or equal to 100,000 colonies/ml of Staphylococcus aureus Methicillin resistant (MRSA) by penicillin binding protein 2a (PBP2a) testing. Plus growth of clinically insignificant bacterial domenico. (.) [facility] Organism STAPHYLOCOCCUS AUREUS [facility] Organism PLUS GROWTH OF CLINICALLY INSIGNIFICANT DOMENICO. [facility] Tracheal aspirate (Tracheal) 06/19/2024 6:53 PM CREW LEADER 06/19/2024 8:18 PM CREW LEADER Narrative [facility] - 06/27/2024 2:52 PM CREW LEADER Testing performed by [facility] ([phone]) Specimens submitted from normally sterile body sites [...] - GENERAL ORD ERABLES Final Result [facility] [place] [address] * XR Chest 1 View (06/19/2024 6:47 PM CREW LEADER) Anatomical Region Laterality Modality Body, Chest N/A Digital Radiogra phy 06/20/2024 2:42 PM CREW LEADER Impressions 06/20/2024 3:15 PM CREW LEADER Comparison is made to 06/19/2024 at 3:32 [...] Herve Payne M.D. Narrative 06/20/2024 3:15 PM CREW LEADER EXAMINATION: 1 view chest radiograph Procedure Note [...] pathogen panel Tracheal aspirate (06/19/2024 6:46 PM CREW LEADER) Influenza A RNA Not Detected Not Detected Influenza B RNA Not Detected Not Detected [facility] RSV RNA Not Detected Not Detected [facility] COVID-19 RNA Not Detected Not Detected [facility] Coronavirus 229E RNA Not Detected Not Detected [facility] Coronavirus HKU1 RNA Not Detected Not Detected [facility] Coronavirus NL63 RNA Not Detected Not Detected [facility] Coronavirus OC43 RNA Not Detected Not Detected [facility] Adenovirus DNA Not Detected Not Detected [facility] Metapneumovirus RNA Not Detected Not Detected [facility] Rhinovirus/Enterov irus RNA Not Detected Not Detected [facility] Parainfluenza 1 RNA Not Detected Not Detected [facility] Parainfluenza 2 RNA Not Detected Not Detected [facility] Parainfluenza 3 RNA Not Detected Not Detected [facility] Parainfluenza 4 RNA Not Detected Not Detected [facility] B. pertussis DNA Not Detected Not Detected [facility] B. parapertussis DNA Not Detected Not Detected [facility] C. pneumoniae DNA Not Detected Not Detected [facility] M. pneumoniae DNA Not Detected Not Detected [facility] Tracheal aspirate 06/19/2024 6:46 PM CREW LEADER 06/20/2024 7:55 AM CREW LEADER Narrative [facility] - 06/20/2024 8:58 AM CREW LEADER Is the Patient experiencing symptoms consistent with COVID?->Yes Surveillance testing for transplant patient?->No Interpretive Data The Blurtt FilmArray Respiratory Panel (RP2.1) assay is a [...] assay has FDA clearance for testing of PIG FARMER swabs. The performance of additional specimen types has been assessed by the performing laboratory. The performance characteristics of this assay have been determined by [facility]. Current interpretive data was last revised on 22. Patricia Bryant MD LAB MICROBIOLOGY - GENERAL ORD ERABLES Final Result [facility] Department [place] [address] * XR Abdomen Ap 1 Vw (06/19/2024 4:09 PM CREW LEADER) Anatomical Region Laterality Modality Body, Abdomen N/A Digital Radiogra phy 06/19/2024 4:35 PM CREW LEADER Impressions 06/19/2024 5:03 PM CREW LEADER Diffuse mild gaseous bowel distention, similar to the prior exam and could represent ileus. Partially imaged gastrostomy tube. Dictated by: Hunter Hernandez M.D. (Ramanan) The radiology attending physician has personally reviewed this study, and had reviewed and/or edited this written report and agrees with it. Electronically signed by: Lupillo Lugo M.D. Narrative 06/19/2024 5:03 PM CREW LEADER EXAMINATION: Abdomen, one view. HISTORY: Abdominal pain [...] XR Chest 1 View (06/19/2024 4:08 PM CREW LEADER) Anatomical Region Laterality Modality Body, Chest N/A Digital Radiogra phy 06/19/2024 4:21 PM CREW LEADER Impressions 06/19/2024 4:21 PM CREW LEADER The current study is compared with the [...] Elif Patel M.D. Narrative 06/19/2024 4:21 PM CREW LEADER EXAMINATION: 1 view chest radiograph Procedure Note [...] Final Result * eGFR (06/19/2024 2:47 PM CREW LEADER) Pathologist [facility] eGFR >90 >=60 mL/min/1. 73 m2 Comment: [...] last reviewed 2021. Blood 06/19/2024 2:47 PM CREW LEADER 06/19/2024 3:03 PM CREW LEADER Patricia Bryant MD LAB BLOOD ORDERABLES Final Res ult [facility] Department [place] [address] * Differential, auto (06/19/2024 2:47 PM CREW LEADER) Neutrophil abs 5.5 1.5 - 6.5 K/cumm Imm gran abs 0.0 0.0 - 0.1 K/cumm [facility] Lymphocyte abs 0.9 0.8 - 3.3 K/cumm [facility] Monocyte abs 0.2 0.2 - 0.8 K/cumm [facility] Eosinophil abs 0.3 0.0 - 0.5 K/cumm [facility] Basophil abs 0.0 0.0 - 0.1 K/cumm [facility] Neutrophil pct 79.8 % [facility] Comment: Interpretive Data Percent cell count reference ranges are not reported, since discordance with absolute values may lead to misinterpretation of CBC data. Current Interpretive Data was last revised on 2017. Imm gran pct 0.4 % [facility] Comment: Interpretive Data Percent cell count reference ranges are not reported, since discordance with absolute values may lead to misinterpretation of CBC data. Current Interpretive Data was last revised on 2017. Lymphocyte pct 13.4 % [facility] Comment: Interpretive Data Percent cell count reference ranges are not reported, since discordance with absolute values may lead to misinterpretation of CBC data. Current Interpretive Data was last revised on 2017. Monocyte pct 2.5 % [facility] Comment: Interpretive Data Percent cell count reference ranges are not reported, since discordance with absolute values may lead to misinterpretation of CBC data. Current Interpretive Data was last revised on 2017. Eosinophil pct 3.8 % [facility] Comment: Interpretive Data Percent cell count reference ranges are not reported, since discordance with absolute values may lead to misinterpretation of CBC data. Current Interpretive Data was last revised on 2017. Basophil pct 0.1 % [facility] Comment: Interpretive Data Percent cell count reference ranges are not reported, since discordance with absolute values may lead to misinterpretation of CBC data. Current Interpretive Data was last revised on 2017. Blood 06/19/2024 2:47 PM CREW LEADER 06/19/2024 3:04 PM CREW LEADER us Patricia Bryant MD LAB BLOOD ORDERABLES Final Res ult [facility] Department [place] [address] * (ABNORMAL) CBC with auto differential (06/19/2024 2:47 PM CREW LEADER) WBC 6.9 3.8 - 9.9 K/cumm Hgb 14.2 13.0 - 17.5 g/dL [facility] Hct 42.4 38.9 - 50.3 % [facility] Plt 135(L) 150 - 400 K/cumm [facility] MPV 12.6(H) 9.1 - 12.3 fL [facility] RBC 4.47 4.30 - 5.80 M/cumm [facility] MCV 94.9 81.3 - 96.4 fL [facility] MCH 31.8 27.1 - 33.3 pg [facility] MCHC 33.5 32.3 - 35.7 g/dL [facility] RDW CV 13.2 11.1 - 14.9 % [facility] RDW SD 46.5 35.7 - 48.1 fL [facility] NRBC abs 0.00 0.00 - 0.01 K/cumm [facility] Blood 06/19/2024 2:47 PM CREW LEADER 06/19/2024 3:04 PM CREW LEADER Patricia Bryant MD LAB BLOOD ORDERABLES Final Res ult [facility] Department of Responsys [place], [place] [id number] * (ABNORMAL) Phosphorus (06/19/2024 2:47 PM CREW LEADER) Phosphorus, pl 2.2(L) 2.3 - 4.5 mg/dL Blood 06/19/2024 2:47 PM CREW LEADER 06/19/2024 3:03 PM CREW LEADER Patricia Bryant MD LAB BLOOD ORDERABLES Final Res ult [facility] [place] [address] * Magnesium (06/19/2024 2:47 PM CREW LEADER) Magnesium 2.0 1.4 - 2.5 mg/dL Blood 06/19/2024 2:47 PM CREW LEADER 06/19/2024 3:03 PM CREW LEADER us Patricia Bryant MD LAB BLOOD ORDERABLES Final Res ult [facility] Department [place] [address] * (ABNORMAL) Comprehensive metabolic panel (06/19/2024 2:47 PM CREW LEADER) Pathologist [facility] Sodium 144 135 - 145 mmol/L Potassium, pl 3.9 3.3 - 4.9 mmol/L [facility] Comment:Hemolyzed; Potassium value may be falsely elevated by as much as 0.3-0.5 mmol/L. Suggest redraw and reanalysis. Chloride 105 97 - 110 mmol/L [facility] CO2 29 22 - 32 mmol/L [facility] Anion gap 10 2 - 15 mmol/L [facility] BUN 7 6 - 25 mg/dL [facility] Creatinine 0.62(L) 0.80 - 1.30 mg/dL [facility] Glucose 113 70 - 199 mg/dL [facility] Comment: Interpretive Data Fasting [...] 2022. Calcium 9.5 8.5 - 10.3 mg/dL [facility] Bilirubin, total 0.2 0.1 - 1.2 mg/dL [facility] Protein, pl 7.2 6.5 - 8.5 g/dL [facility] Albumin 3.7 3.5 - 5.0 g/dL [facility] Alk phos 91 40 - 130 Units/L [facility] ALT 13 7 - 55 Units/L [facility] AST 28 10 - 50 Units/L [facility] Comment:Hemolyzed; result ma y be falsely elevated Blood 06/19/2024 2:47 PM CREW LEADER 06/19/2024 3:03 PM CREW LEADER Result [facility] Patricia Bryant MD LAB BLOOD ORDERABLES Final Res ult Performing Organization Address [facility]/ZIP Co de Phone Number [facility] Department [place] [address] * POCT glucose (06/19/2024 2:25 PM CREW LEADER) Glucose, POC 125 70 - 199 mg/dL Blood 06/19/2024 2:25 PM CREW LEADER 06/19/2024 2:25 PM CREW LEADER Result [facility] Patricia Bryant MD LAB POCT ORDERABLES - DEVICE F inal Result Performing Organization Address [facility] de Phone Number [facility] Department [place] [address] * TNI with LIPID PANEL (08/24/2017 4:57 PM CDT) Pathologist [facility] Troponin I < 0.300 0.000 - 0.300 ng/mL 08/24/2017 5:29 PM [facility] [employer] HISTORICAL RESULTS Comment: Reference using JERRICA Chemiluminescence Negative: Repeat in 4-6 hours as indicated. Triglycerides 34 0 - 199 mg/dL 08/24/2017 5:30 PM [facility] [employer] HISTORICAL RESULTS Comment:12 hr pc highly avani mmended for Triglyceride Cholesterol 129 0 - 199 mg/dL 08/24/2017 5:30 PM [facility] [employer] HISTORICAL RESULTS Comment: Borderline: 200-239 High Risk: >239 HDL Cholesterol 71 mg/dL 8 5:30 PM [facility] [employer] HISTORICAL RESULTS Comment: Reference Ranges: Males: >=40 mg/dL Females: >=50 mg/dL LDL Cholesterol, Calc 51 0 - 130 mg/dL 08/24/2017 5:30 PM CDT [facility] HISTORICAL RESULTS Comment:High Risk > 159 mg/d L Cholesterol/HDL Ratio 1.8 08/24/2017 5:30 PM CDT [facility] HISTORICAL RESULTS Comment: Cholesterol / HDL Ratio 3.5:1 or less is desirable. Cholesterol / HDL Ratio greater than 5:1 is considered higher risk for developing heart disease. 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 Source: [facility] [employer]. 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 Source: [facility] [employer]. 09/18/22 Acinetobacter os 09/18/[address] [facility] Advance Directives For more information, please contact: [phone] Documents on File Type Date Recorded Patient [employer] Department Chair Expl anation ADVANCE DIRECTIVE 10/08/2012 12:00 AM SANDRA R OF [employer]ICAL * Full Code (Latest Code Status on File) Date Activated Date Inactivated Comments 06/12/2024 3:22 PM 06/28/2024 9:30 PM * Full Code Date Activated Date Inactivated Comments 12/10/2020 9:05 AM 12/13/2020 10:44 PM Care Teams Laundry Assistant Relationship Specialty Start Date End Date Marielena Smallwood MD [address] [place] [address] PCP - General Family Practice 07/08/24
--- OUTSIDE RECORDS SUMMARY | 2024-09-17 11:19 | XMS_ITS | Clinical Summary ---
Author Organization [facility] Address [address] [facility] [place] [address] Care Team Providers Care Director Of Curriculum And Instruction Name Role Phone Elizabeth Sullivan RN Unavailable [phone] Dany Monsivais MD Primary Care Provider [phone] Source Comments [facility],non-owned Affiliates and Associated Physician Practices is amultiple site organization consisting of ambulatory clinics and hospital sitesin [place], [place], [place] and [place]. This disclosure is being madepursuant to the Care Everywhere program and may not contain all information available regarding this patient. Last updated 18.[facility] Allergies Active Allergy Reactions Criticality Noted Date [...] No evidence of infection Urine cultures from [facility] last month were negative growth as [...] Team Description 09/07/2024 Travel 08/02/2024 4:31 PM COFFEE SAMPLER - 08/08/2024 8:48 PM CDT Hospital Encounter [facility] [address] [place] [address] Elmo Johnson MD Mayer, Joshua C, DO Arshad, Iqra, MD Archuleta, Lydia, MD Joag, Madhura, MD Internal Medicine Discharge Disposition: Mcfp or Supportive Care 08/02/2024 1:23 AM COFFEE SAMPLER - 08/02/2024 8:15 AM COFFEE SAMPLER Emergency [facility] [address] [place] [phone] Arthur Marinelli MD Other tracheostomy complication (Primary Dx); Abdominal pain, unspecified abdominal location Discharge Disposition: Care Home Facility 08/02/2024 Travel 07/27/2024 3:54 PM COFFEE SAMPLER - 07/28/2024 6:53 AM COFFEE SAMPLER Emergency [facility] [address] [place] [phone] Serjio Vilchis MD Feeding intolerance (Primary Dx); Generalized abdominal pain; Chronic pulmonary aspiration, initial encounter Discharge Disposition: Care Home Facility 07/27/2024 Travel 07/18/2024 4:15 PM COFFEE SAMPLER - 07/18/2024 4:45 PM COFFEE SAMPLER Surgery [facility] ENDOS[facility] [address] [place] [phone] Clifton Trinh MD EGD(ISO) 07/18/2024 4:05 PM COFFEE SAMPLER Anesthesia Event [facility] [address] [place] [phone] Teri Trent MD Dobbs, Kristin L, HOME AID-WINDOWS ARCHITECT 07/16/2024 9:23 PM COFFEE SAMPLER - 07/19/2024 5:51 PM COFFEE SAMPLER Hospital Encounter [facility] [address] ACUTE [address] [place] [phone] Quan Gan MD Arshad, Iqra, MD Bastin, Taylor J, MD Morreale, Peter J III, MD Emergency Medicine Discharge Disposition: Care Home Facility 07/16/2024 Travel from Last 3 Months Immunizations Immunization Administration Dates Next Due Covid [employer] primary monoval ent 12+ yr 0.3mL Purple [...] and heating? Not hard at all 08/06/2024 [facility] [place] [facility] - Occupational Stress [...] place to sleep or slept in a correction (including now)? No 06/19/2023 Housing Stability Vital Sign Answer Vinay e Recorded In the last 12 months, was t here a time when you were not able to pay the mortgage or rent on time? No 08/06/2024 In the past 12 months, how m any times have you moved where you were living? 1 08/06/2024 At any time in the past 12 m [facility], were you homeless or living in a correction (including now)? No 08/06/2024 Sex and Gender Information Value Date Recorded Sex Assigned at Not on file Legal Sex Male 5:07 PM COFFEE SAMPLER Gender Identity Not on file Sexual Orientation [...] 72.6 kg (160 lb) 08/04/2024 12:00 AM COFFEE SAMPLER Height 175.3 cm (5' 9.02 ) 08/04/2024 12:[address] Body Mass Index 23.62 08/04/2024 12:00 AM COFFEE SAMPLER Plan of Treatment Upcoming Encounters Date Type Department Care Team (Late st Contact Info) Description 10/03/2024 11:15 AM CDT Office Visit [facility] - Vascular Surgery [address] [place] [address], [place] [phone] Anna Membreno MD [facility] 2L [place] [address] 12/05/2024 1:00 PM CDT Office Visit [facility] - Neurology [address] [place] [address], [place] [address] Sean Raymundo DO [address] [place] [address] [address]L [place] [address] Health Maintenance Due Date Last [...] POINT OF CARE Routine 08/05/2024 1:43 AM COFFEE SAMPLER CBC W/O DIFFERENTIAL Routine 08/05/2024 1:02 AM COFFEE SAMPLER Nausea without vomiting PT-INR [facility] Routine 08/05/2024 1:02 AM COFFEE SAMPLER Nausea without vomiting MAGNESIUM BLOOD Routine 08/05/2024 1:02 AM COFFEE SAMPLER Nausea without vomiting RENAL FUNCTION PANEL Routine 08/05/2024 1:02 AM COFFEE SAMPLER Nausea without vomiting CBC W/O DIFFERENTIAL Routine 08/04/2024 12:12 PM COFFEE SAMPLER Nausea without vomiting PSA FREE + TOTAL PANEL AM Draw 08/04/2024 12:12 PM COFFEE SAMPLER Acute cystitis without hematuria PT-INR [facility] Routine 08/04/2024 12:12 PM COFFEE SAMPLER Nausea without vomiting MAGNESIUM BLOOD Routine 08/04/2024 12:12 PM COFFEE SAMPLER Nausea without vomiting RENAL FUNCTION PANEL Routine 08/04/2024 12:12 PM COFFEE SAMPLER Nausea without vomiting CULTURE URINE STAT 08/03/2024 8:53 AM COFFEE SAMPLER Acute cystitis without hematuria HEMOGLOBIN A1C RINKU 08/03/2024 5:18 AM COFFEE SAMPLER Nausea without vomiting CBC W/O DIFFERENTIAL STAT 08/03/2024 5:18 AM COFFEE SAMPLER Nausea without vomiting PT-INR [facility] STAT 08/03/2024 5:18 AM COFFEE SAMPLER Nausea without vomiting MAGNESIUM BLOOD STAT 08/03/2024 5:18 AM COFFEE SAMPLER Nausea without vomiting RENAL FUNCTION PANEL STAT 08/03/2024 5:18 AM COFFEE SAMPLER Nausea without vomiting TYPE + SCREEN PANEL STAT 08/02/2024 9 :[address] CHEST ABDOMEN PELVIS W CONT STAT 08/02/2024 9:42 PM COFFEE SAMPLER Nausea without vomiting XR CHEST 1VW PORTABLE STAT 08/02/2024 5:15 PM COFFEE SAMPLER Nausea without vomiting URINALYSIS REFLEX TO MICROSCOPIC NO CULTURE STAT 08/02/2024 5:08 PM COFFEE SAMPLER PT-INR [facility] STAT 08/02/2024 5:08 PM COFFEE SAMPLER COMPREHENSIVE METABOLIC PANEL STAT 08/02/2024 5:08 PM COFFEE SAMPLER LIPASE BLOOD STAT 08/02/2024 5:08 PM COFFEE SAMPLER CBC W AUTO DIFFERENTIAL STAT 08/02/2024 5:08 PM COFFEE SAMPLER XR CHEST 1VW PORTABLE STAT 08/02/2024 2:33 AM COFFEE SAMPLER Abdominal pain, unspecified abdominal location LIPASE BLOOD STAT 08/02/2024 2:03 AM COFFEE SAMPLER COMPREHENSIVE METABOLIC PANEL STAT 08/02/2024 2:03 AM COFFEE SAMPLER CBC W AUTO DIFFERENTIAL STAT 08/02/2024 2:[address] CHEST ABDOMEN PELVIS W CONT STAT 07/28/2024 12:25 AM COFFEE SAMPLER Generalized abdominal pain COMPREHENSIVE METABOLIC PANEL STAT 07/27/2024 6:26 PM COFFEE SAMPLER CBC W AUTO DIFFERENTIAL STAT 07/27/2024 6:26 PM COFFEE SAMPLER TROPONIN-I HIGH SENSITIVE BASELINE + 1HR STAT 07/27/2024 6:26 PM COFFEE SAMPLER MAGNESIUM BLOOD STAT 07/27/2024 6:26 PM COFFEE SAMPLER LIPASE BLOOD STAT 07/27/2024 6:26 PM COFFEE SAMPLER EKG 12-LEAD Routine 07/27/2024 5:34 PM COFFEE SAMPLER Generalized abdominal pain XR CHEST 1VW PORTABLE Routine 07/27/2024 12:39 PM COFFEE SAMPLER Nausea and vomiting, unspecified vomiting type GLUCOSE - POINT OF CARE Routine 07/19/2024 5:00 PM COFFEE SAMPLER GLUCOSE - POINT OF CARE Routine 07/19/2024 12:10 PM COFFEE SAMPLER GLUCOSE - POINT OF CARE Routine 07/19/2024 8:10 AM COFFEE SAMPLER CBC W AUTO DIFFERENTIAL Routine 07/19/2024 5:27 AM COFFEE SAMPLER Coffee ground emesis GLUCOSE - POINT OF CARE Routine 07/19/2024 3:34 AM COFFEE SAMPLER GLUCOSE - POINT OF CARE Routine 07/18/2024 11:33 PM COFFEE SAMPLER GLUCOSE - POINT OF CARE Routine 07/18/2024 8:01 PM COFFEE SAMPLER PATHOLOGY TISSUE Routine 07/18/2024 4:27 PM COFFEE SAMPLER Coffee ground emesis ID ED EGD FLEX TRANSORAL DX 07/18/2024 4:00 PM COFFEE SAMPLER Coffee ground emesis EGD Routine 07/18/2024 3:52 PM COFFEE SAMPLER GLUCOSE - POINT OF CARE Routine 07/18/2024 12:11 PM COFFEE SAMPLER GLUCOSE - POINT OF CARE Routine 07/18/2024 11:44 AM COFFEE SAMPLER CBC W AUTO DIFFERENTIAL Routine 07/18/2024 8:07 AM COFFEE SAMPLER Coffee ground emesis PT-INR [facility] Routine 07/18/2024 8:07 AM COFFEE SAMPLER Nausea and vomiting, unspecified vomiting type VALPROIC ACID LEVEL Routine 07/18/2024 8 :07 AM COFFEE SAMPLER Nausea and vomiting, unspecified vomiting type PHOSPHORUS BLOOD AM Draw 07/18/2024 8:07 AM COFFEE SAMPLER Coffee ground emesis COMPREHENSIVE METABOLIC PANEL AM Draw 07/18/2024 8:07 AM COFFEE SAMPLER Coffee ground emesis MAGNESIUM BLOOD AM Draw 07/18/2024 8:07 AM COFFEE SAMPLER Coffee ground emesis GLUCOSE - POINT OF CARE Routine 07/18/2024 7:42 AM COFFEE SAMPLER GLUCOSE - POINT OF CARE Routine 07/18/2024 3:31 AM COFFEE SAMPLER GLUCOSE - POINT OF CARE Routine 07/17/2024 11:36 PM COFFEE SAMPLER GLUCOSE - POINT OF CARE Routine 07/17/2024 8:42 PM COFFEE SAMPLER CARDIAC EKG ORDER 07/17/2024 1:4 4 PM COFFEE SAMPLER URINE MICROSCOPIC ONLY REFLEX TO CULTURE STAT 07/17/2024 9:58 AM COFFEE SAMPLER URINALYSIS REFLEX MICROSCOPIC REFLEX CULTURE STAT 07/17/2024 9:58 AM COFFEE SAMPLER CULTURE URINE STAT 07/17/2024 9:58 AM COFFEE SAMPLER CBC W AUTO DIFFERENTIAL STAT 07/17/2024 8:31 AM COFFEE SAMPLER Coffee ground emesis TROPONIN-I HIGH SENSITIVE REFLEX 1HOUR Timed 07/17/2024 12:03 AM COFFEE SAMPLER CBC W AUTO DIFFERENTIAL STAT 07/17/2024 12:03 AM COFFEE SAMPLER SARS-COV-2 (COVID-19) FLU A/B RSV PCR RAPID STAT 07/17/2024 12:[address] ABDOMEN PELVIS W CONTRAST STAT 07/16/2024 11:41 PM COFFEE SAMPLER Nausea and vomiting, unspecified vomiting type Abdominal distention Other constipation CK BLOOD STAT 07/16/2024 10:44 PM COFFEE SAMPLER TROPONIN-I HIGH SENSITIVE BASELINE + 1HR STAT 07/16/2024 10:44 PM COFFEE SAMPLER LIPASE BLOOD STAT 07/16/2024 10:44 PM COFFEE SAMPLER LACTIC ACID BLOOD REFLEX TO REPEAT STAT 07/16/2024 10:44 PM COFFEE SAMPLER COMPREHENSIVE METABOLIC PANEL STAT 07/16/2024 10:44 PM COFFEE SAMPLER XR CHEST 1VW PORTABLE STAT 07/16/2024 10:28 PM COFFEE SAMPLER Nausea and vomiting, unspecified vomiting type HEPATITIS [...] Impression: Successful exchange of the 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 Start time: 1435 End time: 1451 Fluoroscopic time: 4.0 minutes Contrast: 10 mL of Isovue-300 Procedure in detail: The procedure, risks, and possible complications were explained to the patient in detail, and informed consent was obtained. The patient was placed supine on the procedure table. A school manager film of abdomen was obtained, which showed [...] was removed over the wire. A 4 Colombian Kumpe catheter was advanced over the wire and using this combination, was advanced into the jejunum. The Kumpe catheter was then removed over the wire. A new 18 Colombian gastrojejunostomy catheter was then advanced over the [...] jelly Procedure: Exchange of the existing 18 Colombian gastrojejunostomy catheter for a new 18 Colombian gastrojejunostomy catheter under fluoroscopicguidance. Start time: 1435 End time: 1451 Fluoroscopic time: 4.0 minutes Contrast: 10 mL of Isovue-300 Procedure in detail: The procedure, risks, and possible complications were explained to the patient in detail, and informed consent was obtained. The patient was placed supine on the procedure table. A school manager film of abdomen wasobtained, which showed the [...] was removed over the wire. A 4 Colombian Kumpe catheter wasadvanced over the wire and using this combination, was advanced into the jejunum. The Kumpe catheter was then removed over the wire. A new 18 Colombian gastrojejunostomy catheter was then advanced over the [...] 18 Frenchgastrojejunostomy catheter for a new 18 Colombian gastrojejunostomy catheter underfluoroscopic guidance, as described above. [...] Dictated by Yessica Lovell MD, MD (resident hall director). I, Bebo Kuo MD have personally reviewed and interpreted this examination/study. > Interpreting Provider: Bebo Kuo MD on 08/06/2024 1:31 PM Narrative 08/06/2024 1:31 PM CDT PROCEDURE: CT ABDOMEN WO CONTRAST, DATE/TIME OF EXAM: 08/06/2024 11:01 AM, LOCATION [facility] INDICATION: R11.0: Nausea without vomiting Z93.1: [...] CONTRAST, DATE/TIME OF EXAM: 08/06/2024 11:01AM, LOCATION [facility] INDICATION: R11.0: Nausea without vomiting Z93.1: [...] Dictated by Yessica Lovell MD, MD (resident hall director). Bebo Thomason MD have personally reviewed and interpreted this examination/study. > Interpreting Provider: Bebo Kuo MD on 51:31 PM us Yary James MD CT ORDERABLES Final Result * GLUCOSE - POINT OF CARE (08/06/2024 6:45 AM CDT) Only the most recent of14 resultswithin the time period is included. Glucose WB/POC 92 70 - 99 mg/dL 08/06/2024 6:46 AM CDT [facility] Specimen Type Cap Fingerstick 2024 6:46 AM CDT [facility] Blood BLOOD SPECIMEN / Unknown 08/06/2024 6:45 AM CDT 08/06/2024 6:46 AM CDT us Yary James MD LAB - POINT OF CARE ORDERABLE S Final Result [address] [address], [facility] [phone] * XR Abdomen Kub Portable (08/05/2024 6:14 AM CDT) Anatomical Region Laterality Modality Abdomen Digital Radiogra phy 08/05/2024 9:25 AM CDT Impressions 08/05/2024 5:10 PM CDT IMPRESSION: No radiographic evidence of acute intra-abdominal process. Report dictated by Sierra Lyman Dr, MD (resident hall director). IRamon MD have personally reviewed and interpreted this examination/study. > Interpreting Provider: Ramon Ross MD on 08/05/2024 5:10 PM Narrative 08/05/2024 5:10 PM CDT PROCEDURE: XR ABDOMEN KUB PORTABLE, DATE/TIME OF EXAM: 08/05/2024 6:14 AM, LOCATION [facility] INDICATION: R11.2: Nausea and vomiting, unspecified [...] PORTABLE, DATE/TIME OF EXAM: 08/05/2024 6:14AM, LOCATION [facility] INDICATION: R11.2: Nausea and vomiting, unspecified [...] dictated by Sierra Lyman Dr, MD (resident hall director). I, Ramon Ross MD have personally reviewed and interpreted this examination/study. > Interpreting Provider: Ramon Ross MD on 08/05/2024 5:10 PM Neha Palomino MD DIAGNOSTIC IMAGING ORDERABLE S Final Result * PT-INR [facility] (08/05/2024 1:02 AM COFFEE SAMPLER) Only the most recent of5 resultswithin the time period is included. PT 13.8 12.1 - 14.8 Seconds 08/05/2024 3:57 AM [facility] INR 1.1 See Comment 08/05/2024 3:57 AM [facility] Comment:The suggested therap eutic range for standard coumadin (warfarin) therapy is an INR of 2.0-3.0. For high-risk patients (Mechanical Mitral Valve Prosthesis, etc.), the suggested prophylactic therapeutic range is an INR of 2.5-3.5. Blood BLOOD SPECIMEN / Unknown Lab Venipuncture / Unknown 08/05/2024 1:02 AM COFFEE SAMPLER 08/05/2024 3:37 AM CDT us Lowell Cao DO LAB - COAGULATION ORDERABLES F inal Result [facility] [address] [place] [phone], [facility] [phone] * (ABNORMAL) CBC W/O DIFFERENTIAL (08/05/2024 1:02 AM COFFEE SAMPLER) Only the most recent of3 resultswithin the time period is included. WBC 6.3 4.0 - 10.7 x10E9/L 08/05/2024 3:57 AM [facility] RBC Count 4.08(L) 4.30 - 5.80 x10E12/L 08/05/2024 3:57 AM [facility] Hemoglobin 12.8(L) 13.3 - 17.5 g/dL 08/05/2024 3:57 AM [facility] Hematocrit 38.5(L) 38.7 - 51.1 % 08/05/2024 3:57 AM [facility] MCV 94.4 80.0 - 98.0 fL 08/05/2024 3:57 AM [facility] MCH 31.4 26.7 - 33.6 pg 08/05/2024 3:57 AM [facility] MCHC 33.2 31.7 - 36.3 g/dL 08/05/2024 3:57 AM [facility] RDW-CV 13.2 11.3 - 14.8 % 08/05/2024 3:57 AM [facility] Platelet Count 187 150 - 420 x10E9/L 08/05/2024 3:57 AM [facility] MPV 13.2(H) 7.8 - 11.4 fL 08/05/2024 3:57 AM [facility] Blood BLOOD SPECIMEN / Unknown Lab Venipuncture / Unknown 08/05/2024 1:02 AM COFFEE SAMPLER 08/05/2024 3:37 AM CDT us Marianne Daniels MD LAB - HEMATOLOGY ORDERABLES Lulu coley Result [facility] [address] [place] [address], [facility] [phone] * (ABNORMAL) RENAL FUNCTION PANEL (08/05/2024 1:02 AM COFFEE SAMPLER) Only the most recent of3 resultswithin the time period is included. BUN 16 7 - 26 mg/dL 08/05/2024 4:02 AM [facility] Creatinine 0.63(L) 0.71 - 1.16 mg/dL 08/05/2024 4:02 AM [facility] Sodium 140 136 - 145 mmol/L 08/05/2024 4:02 AM [facility] Potassium 4.0 3.5 - 4.5 mmol/L 08/05/2024 4:02 AM [facility] Chloride 107 98 - 107 mmol/L 08/05/2024 4:02 AM [facility] CO2 24 22 - 29 mmol/L 08/05/2024 4:02 AM [facility] Glucose 79 70 - 99 mg/dL 08/05/2024 4:02 AM [facility] Albumin 3.3(L) 3.4 - 5.0 g/dL 08/05/2024 4:02 AM [facility] Calcium 8.9 8.4 - 10.2 mg/dL 08/05/2024 4:02 AM [facility] Phosphorus 3.6 2.8 - 5.1 mg/dL 08/05/2024 4:02 AM [facility] Anion Gap 9 6 - 16 08/05/2024 4:02 AM [facility] BUN/Creatinine Ratio 25(H) 7 - 23 08/05/2024 4:02 AM [facility] Osmolality Calculated 290 275 - 295 mOsm/kg 08/05/2024 4:02 AM [facility] eGFR by CKD-EPI >90 >=90 mL/min/1.7 3 m2 08/05/2024 4:02 AM [facility] Blood BLOOD SPECIMEN / Unknown Lab Venipuncture / Unknown 08/05/2024 1:02 AM COFFEE SAMPLER 08/05/2024 3:37 AM CDT Lowell Cao DO LAB - CHEMISTRY ORDERABLES Fin al Result Performing Organization Address City/[facility]/ZIP Co de Phone Number [facility] [address] [place] [phone], [place] [phone] * MAGNESIUM BLOOD (08/05/2024 1:02 AM COFFEE SAMPLER) Only the most recent of5 resultswithin the time period is included. Magnesium 1.9 1.6 - 2.6 mg/dL 08/05/2024 4:02 AM CDT [facility] Blood BLOOD SPECIMEN / Unknown Lab Venipuncture / Unknown 08/05/2024 1:02 AM COFFEE SAMPLER 08/05/2024 3:37 AM CDT Lowell Johnson Cao DO LAB - CHEMISTRY ORDERABLES Fin al Result Performing Organization Address City/[facility]/ZIP Co de Phone Number [address] [address], [place] [phone] * PSA FREE + TOTAL PANEL (08/04/2024 12:12 PM COFFEE SAMPLER) PSA Total 1.7 0.0 - 4.0 ng/mL 08/04/2024 1:33 PM [facility] PSA Free 0.21 0.00 - 0.50 ng/mL 08/04/2024 1:33 PM [facility] PSA % Free 12 See Comment % 08/04/2024 1:33 PM [facility] Comment: [facility] uses the [place]ancia Drug Room Operator method for Total and Free PSA [...] Free and/or Total PSA alone. Distribution of LEAD INSTRUCTOR/FLIGHT ATTENDANT % Free PSA Values for specimens with LEAD INSTRUCTOR/FLIGHT ATTENDANT Total PSA values between 4.0 and 10.0 ng/mL: % Free PSA Ranges <10.0 10.0-15.0 15.0-20.0 20.0-26.0 >26.0 Number of ----- --------- --------- --------- ----- Subjects Biopsy --------- ------ Negative 307 9.4 22.5 25.4 24.8 17.9 Positive 123 27.6 30.9 17.9 15.4 8.1 PSA % Free 08/04/2024 1:33 PM COFFEE SAMPLER [facility] Blood BLOOD SPECIMEN / Unknown Lab Venipuncture / Unknown 08/04/2024 12:12 PM COFFEE SAMPLER 08/04/2024 12:42 PM COFFEE SAMPLER Marianne Daniels MD LAB - CHEMISTRY ORDERABLES Final Result [address] [phone] [phone] * (ABNORMAL) CULTURE URINE (08/03/2024 8:53 AM COFFEE SAMPLER) Only the most recent of2 resultswithin the time period is included. Culture Urine 50,000-100,000 CFU/mL Pseudomonas aeruginosa(A) JELLY 08/07/2024 6:04 AM [facility] Comment:This is an appended report. These results have been appended to a previously final verified report. Culture Urine 50,000-100,000 CFU/mL Corynebacterium striatum(A) JELLY 08/07/2024 6:04 AM [facility] MICROBIOLOGY Comment:This is an appended report. These results have been appended to a previously final verified report. Culture Urine 50,000-100,000 CFU/mL Providencia stuartii(A) JELLY 08/07/2024 6:04 AM [facility] MICROBIOLOGY Urine URINE SPECIMEN OBTAINED BY CLEAN CATCH PROCEDURE / Unknown Collection / Unknown 08/03/2024 8:53 AM COFFEE SAMPLER 08/03/2024 8:56 AM COFFEE SAMPLER Narrative Organism Antibiotic Method Susceptibility Pseudomonas aeruginosa [...] MICROBIOLOGY ORDERABLES Ed ited Result - Final [facility] [address] [place] [address], [facility] [phone] * HEMOGLOBIN A1C (08/03/2024 5:18 AM [facility]) [facility] Hemoglobin A1c 5.3 <=5.6 [...] to evaluate metabolic control in patients. Reference: [employer], Standards of Care in Diabetes -2020 In patients 70 years and older consider HbA1c target range of 7.0-7.5% (Reference: Lukas Matamoros et al. JAMDA. 2012) The Sebia assay for the measurement of HbA1c is a National Glycohemoglobin Standardization Program (NGSP) certified method. Blood BLOOD SPECIMEN / Unknown Venipuncture / Unknown 08/03/2024 5:18 AM COFFEE SAMPLER 08/03/2024 5:24 AM COFFEE SAMPLER Lowell Cao DO LAB - CHEMISTRY ORDERABLES Fin al Result [facility] [address] [place] [address], [place] [phone] * TYPE + SCREEN PANEL (08/02/2024 9:53 PM COFFEE SAMPLER) Antibody Screen NEG 10:41 PM COFFEE SAMPLER [facility] ABO Rh O POS 08/02/2024 10:41 PM COFFEE SAMPLER [facility] Blood Bank BLOOD SPECIMEN / Unknown Venipuncture / Unknown 08/02/2024 9:53 PM COFFEE SAMPLER 08/02/2024 10:05 PM COFFEE SAMPLER us Elmo Johnson MD LAB - BLOOD BANK ORDERABLES F inal Result Performing Organization Address [facility]/ZIP Co de Phone Number [facility] [address] [place] [address], [facility] [phone] * CT Chest Abdomen Pelvis W Cont (08/02/2024 9:42 PM COFFEE SAMPLER) Only the most recent of2 resultswithin the time period is included. Anatomical Region Laterality Modality Chest, Abdomen, Pelvis Computed Tomography 08/02/2024 9:56 PM COFFEE SAMPLER Impressions 08/02/2024 11:19 PM COFFEE SAMPLER Impression: 1.Trace left-sided pleural effusion, bilateral dependent [...] > Dictated by Justin Burrell MD (resident hall director). I, Bebo Kuo MD have personally reviewed and interpreted this examination/study. > Interpreting Provider: Bebo Kuo MD on 08/02/2024 11:19 PM Narrative 08/02/2024 11:19 PM COFFEE SAMPLER PROCEDURE: CT CHEST ABDOMEN PELVIS W CONT, DATE/TIME OF EXAM: 08/02/2024 9:43 PM, LOCATION [facility] INDICATION: R11.0: Nausea without vomiting ADDITIONAL [...] DATE/TIME OF EXAM: 08/02/2024 9:43 PM, LOCATION [facility] INDICATION: R11.0: Nausea without vomiting ADDITIONAL [...] > Dictated by Justin Burrell MD (resident hall director). Bebo Thomason MD have personally reviewed and interpreted this examination/study. > Interpreting Provider: Bebo Kuo MD on 511:19 PM us Elmo Johnson MD CT ORDERABLES Final Result * XR CHEST 1VW PORTABLE (08/02/2024 5:15 PM COFFEE SAMPLER) Only the most recent of4 resultswithin the time period is included. Anatomical Region Laterality Modality Chest Digital Radiogra phy 08/02/2024 5:27 PM COFFEE SAMPLER Narrative 08/03/2024 9:31 AM COFFEE SAMPLER PROCEDURE: XR CHEST 1VW PORTABLE, DATE/TIME OF EXAM: 08/02/2024 5:15 PM, LOCATION [facility] INDICATION: R11.0: Nausea without vomiting ADDITIONAL [...] > Dictated by Meeta Leblanc MD (resident hall director) Ramon Thomason MD have personally reviewed and interpreted this examination/study. > Interpreting Provider: Ramon Ross MD on 08/03/2024 9:31 AM Procedure Note Ramon Ross MD - 08/03/2024 PROCEDURE: XR CHEST 1VW PORTABLE, DATE/TIME OF EXAM: 08/02/2024 5:15 PM, LOCATION [facility] INDICATION: R11.0: Nausea without vomiting ADDITIONAL [...] > Dictated by Meeta Leblanc MD (resident hall director) I, Ramon Ross MD have personally reviewed and interpreted this examination/study. > Interpreting Provider: Ramon Ross MD on 08/03/2024 9:31 AM Elmo Johnson MD DIAGNOSTIC IMAGING ORDERABLES Final Result * (ABNORMAL) URINALYSIS REFLEX TO MICROSCOPIC NO CULTURE (08/02/2024 5:08 PM COFFEE SAMPLER) Color UA Yellow Yellow, Straw 08/02/2024 5:46 PM [facility] Clarity UA Turbid(A) Clear 08/02/2024 5:46 PM [facility] Glucose UA Normal Normal 08/02/2024 5:46 PM [facility] Bilirubin UA Negative Negative 08/02/2024 5:46 PM [facility] Ketone UA Negative Negative 08/02/2024 5:46 PM [facility] Specific [place] UA 1.015 1.005 - 1.030 08/02/2024 5:46 [...] Unknown Collection / Unknown 08/02/2024 5:08 PM COFFEE SAMPLER 08/02/2024 5:11 PM COFFEE SAMPLER us Elmo Johnson MD LAB - URINALYSIS ORDERABLES F inal Result [facility] [address] [place] [address], [facility] [phone] * (ABNORMAL) CBC W AUTO DIFFERENTIAL (08/02/2024 5:08 PM COFFEE SAMPLER) Only the most recent of7 resultswithin the [...] Unknown Venipuncture / Unknown 08/02/2024 5:08 PM COFFEE SAMPLER 08/02/2024 5:14 PM [facility] us Elmo Johnson MD LAB - HEMATOLOGY ORDERABLES F inal Result Performing Organization Address City/State/[facility] Co de Phone Number [facility] [address] [place] [address], [facility] [phone] * (ABNORMAL) COMPREHENSIVE METABOLIC PANEL (08/02/2024 5:08 PM COFFEE SAMPLER) Only the most recent of5 resultswithin the [...] Unknown Venipuncture / Unknown 08/02/2024 5:08 PM COFFEE SAMPLER 08/02/2024 5:14 PM [facility] us Elmo Johnson MD LAB - CHEMISTRY ORDERABLES Fi nal Result Performing Organization Address City/[facility]/ZIP Co de Phone Number [address] [address], [facility] [phone] * LIPASE BLOOD (08/02/2024 5:08 PM COFFEE SAMPLER) Only the most recent of4 resultswithin the time period is included. [facility] Lipase 18 8 - 78 U/L 08/02/2024 5:44 PM COFFEE SAMPLER [facility] Blood BLOOD SPECIMEN / Unknown Venipuncture / Unknown 08/02/2024 5:08 PM COFFEE SAMPLER 08/02/2024 5:14 PM COFFEE SAMPLER Narrative [facility] - 08/02/2024 5:44 PM COFFEE SAMPLER Lipase results from the [employer] Alinity analyzer may not be comparable with other methodologies. Elmo Johnson MD LAB - CHEMISTRY ORDERABLES Fi nal Result Performing Organization Address [facility] Co de Phone Number [address] [address], [facility] [phone] * TROPONIN-I HIGH SENSITIVE BASELINE + 1HR (07/27/2024 6:26 PM COFFEE SAMPLER) Only the most recent of2 resultswithin the time period is included. [facility] Troponin I High Sensitive 5 <=35 ng/L 07/27/2024 7:09 PM COFFEE SAMPLER [facility] Blood BLOOD SPECIMEN / Unknown Venipuncture / Unknown 07/27/2024 6:26 PM COFFEE SAMPLER 07/27/2024 6:37 PM COFFEE SAMPLER Serjio Vilchis MD LAB - CHEMISTRY ORDERABLES Final Result Performing Organization Address [facility]/ZIP Co de Phone Number [address] [address], [facility] [phone] * EKG 12-LEAD (07/27/2024 5:34 PM COFFEE SAMPLER) [facility] Ventricular Rate 84 BPM [facility] Atrial Rate 84 BPM [facility] P-R Interval 160 ms [facility] QRS Duration ms 76 ms [facility] Q-T Interval ms 364 ms [facility] QTC Calculation (Bezet) 430 ms [facility] Calculated P [place] 49 degrees [facility] Calculated R [place] -25 degrees [facility] Calculated T [place] 56 degrees [facility] Interpretation EKG NORMAL SINUS RHYTHM SEPTAL INFARCT , AGE UNDETERMINED INFERIOR INFARCT , AGE UNDETERMINED ABNORMAL ECG WHEN COMPARED WITH ECG OF 19-FEB-2024 17:27, SEPTAL INFARCT IS NOW PRESENT INFERIOR INFARCT IS NOW PRESENT Confirmed by MD ABENA, CLEMENTE ([id number]) on 07/30/2024 2:44:30 PM [facility] 07/27/2024 5:34 PM COFFEE SAMPLER 07/30/2024 2:44 PM COFFEE SAMPLER us Serjio Vilchis MD ECG ORDERABLES Edited Result - Final [facility] * PATHOLOGY TISSUE (07/18/2024 4:27 PM COFFEE SAMPLER) Case Report Surgical Pathology Report Case: [id number] Authorizing Provider: Clifton Trinh, Collected: 07/18/2024 04:27 PM Ordering Location: [facility] Received: 07/19/2024 10:00 AM Pathologist: Mara Pascual MD Specimen: Gastric, Gastric Antrum Biopsies 07/20/2024 3:51 PM [facility] Final Diagnosis Stomach, antrum, biopsy (A): - Superficial erosion in a background of reactive gastropathy, SEE COMMENT 07/20/2024 3:51 PM [facility] Microscopic Description and Comment The [...] true H. pylori infection. 07/20/2024 3:51 PM [facility] Clinical History The patient is a 64-year-old man with suspected upper gastrointestinal bleeding and melena. Operative procedure/findings: EGD - small esophageal diverticulum; benign-appearing intrinsic stenosis at the proximal and distal esophagus, dilated; broad irregular area of mucosa along the lesser curvature with superficial erosion, biopsied 07/20/2024 3:51 PM [facility] Gross Description The requisition and specimen(s) are identified with the patient's name, Bi Tabor. Received in formalin, specimen A , are four marie-pink tissue fragments, 0.1-0.3 cm, 0.4 x 0.3 x 0.1 cm in aggregate , submitted in toto in cassette A1. The two smallest fragments are friable and may not survive processing. IKD 07/20/2024 3:51 PM [facility] PATH[facility] Pathologist Location at [facility] 07/20/2024 3:51 PM [facility] Disclaimer The performance characteristics of all immunohistochemical and indirect immunofluorescence stains (if any) cited in this report were determined by the Histopathology Laboratory of [facility]. Some of these tests were [...] the attending (teaching) pathologist. 07/20/2024 3:51 PM [facility] Embedded Images 07/20/2024 3:51 PM [facility] Biopsy, NOS GASTRIC CONTENTS SPECIMEN / Unknown 07/18/2024 4:27 PM COFFEE SAMPLER 07/19/2024 10:00 AM COFFEE SAMPLER Comment:Pre-op diagnosis: Coffee ground emesis [K92.0] Clifton Alejandra MD LAB - PATHOLOGY/CYTO LOGY ORDERABLES Final Result [facility] [address] [place] [address], [facility] [phone] * EGD (07/18/2024 3:52 PM COFFEE SAMPLER) Report Endoscopy POC Endoscopy Department Report __ [...] entire procedure. Procedure Code(s): --- Professional --- 41189, Esophagogastroduode noscopy, flexible, transoral; with biopsy, single or multiple Diagnosis Code(s): --- Professional --- K31.89, Other diseases of stomach and duodenum K92.1, Melena (includes Hematochezia) CPT copyright 2021 [employer]. All rights reserved. The codes documented in this report are preliminary and upon inserting operator review may be revised to meet current compliance requirements. Clifton Alejandra MD 07/18/2024 4:45:03 PM Note Initiated On: 07/18/2024 3:52 PM Number of Addenda: [id number] [place] [address] [facility] 07/18/2024 3:52 PM COFFEE SAMPLER us Aaron Delgado III, MD GI PROCEDURE ORDERABLES Edited Result - Final Performing Organization Address City/[facility]/ZIP Co de Phone Number [facility] * PHOSPHORUS BLOOD (07/18/2024 8:07 AM COFFEE SAMPLER) Phosphorus 4.2 2.8 - 5.1 mg/dL 07/18/2024 8:52 AM COFFEE SAMPLER [facility] Blood BLOOD SPECIMEN / Unknown Lab Venipuncture / Unknown 07/18/2024 8:07 AM COFFEE SAMPLER 07/18/2024 8:24 AM COFFEE SAMPLER us Marianne Daniels MD LAB - CHEMISTRY ORDERABLES Final Result Performing Organization Address [facility]/ZIP Co de Phone Number [address] [address], [place] [phone] * VALPROIC ACID LEVEL (07/18/2024 8:07 AM COFFEE SAMPLER) Valproic Acid Total 74 50 - 100 ug/mL 07/18/2024 8:41 AM COFFEE SAMPLER [facility] Blood BLOOD SPECIMEN / Unknown Lab Venipuncture / Unknown 07/18/2024 8:07 AM COFFEE SAMPLER 07/18/2024 8:19 AM COFFEE SAMPLER us Marianne Daniels MD LAB - CHEMISTRY ORDERABLES Final Result Performing Organization Address City/[facility]/ZIP Co de Phone Number [address] [address], [place] [phone] * CARDIAC EKG ORDER (07/17/2024 1:44 PM COFFEE SAMPLER) Narrative 07/17/2024 1:44 PM COFFEE SAMPLER Ordered by an unspecified provider. us Scanned Document CARD[facility] SERVICES ORDERABLES Fin al Result * (ABNORMAL) URINE MICROSCOPIC ONLY REFLEX TO CULTURE (07/17/2024 9:58 AM COFFEE SAMPLER) Reflex Status Culture to follow 07/17/2024 10:42 [...] Unknown Collection / Unknown 07/17/2024 9:58 AM COFFEE SAMPLER 07/17/2024 10:02 AM [facility] Narrative [facility] - 07/17/2024 10:42 AM COFFEE SAMPLER Quan Gan MD LAB - URINALYSIS ORDERABLES Lulu coley Result Performing Organization Address [facility]/State/ZIP Co de Phone Number [facility] [address] [place] [phone], [facility] [phone] * (ABNORMAL) URINALYSIS REFLEX MICROSCOPIC REFLEX CULTURE (07/17/2024 9:58 AM COFFEE SAMPLER) Color UA Yellow Straw, Yellow 07/17/2024 10:36 AM [facility] Clarity UA Slt Cloudy(A) Clear 07/17/2024 10:36 AM [facility] Specific [place] UA 1.027 1.005 - 1.030 07/17/2024 10:36 [...] Unknown Collection / Unknown 07/17/2024 9:58 AM COFFEE SAMPLER 07/17/2024 10:02 AM [facility] Narrative [facility] - 07/17/2024 10:36 AM COFFEE SAMPLER Quan Gan MD LAB - URINALYSIS ORDERABLES Lulu l Result [address] [address], [place] [phone] * TROPONIN-I HIGH SENSITIVE REFLEX 1HOUR (07/17/2024 12:03 AM [facility]) Troponin I High Sensitive 7 <=35 ng/L 07/17/2024 12:48 AM [facility] Delta Troponin I HS 0 <6 ng/L 07/17/2024 12:48 AM [facility] Blood BLOOD SPECIMEN / Unknown Venipuncture / Unknown 07/17/2024 12:03 AM COFFEE SAMPLER 07/17/2024 12:11 AM COFFEE SAMPLER Quan Gan MD LAB - CHEMISTRY ORDERABLES Final Result [address] [address], [place] [phone] * SARS-COV-2 (COVID-19) FLU A/B RSV PCR RAPID (07/17/2024 12:03 AM COFFEE SAMPLER) COVID-19 PCR Not detected Not detected 07/17/19 12:51 AM [facility] Influenza A PCR Not detected Not detected 07/17/2024 12:51 AM [facility] Influenza B PCR Not detected Not detected 07/17/2024 12:51 AM [facility] RSV PCR Not detected Not detected 07/17/2024 12:51 AM [facility] Microbiology SPECIMEN FROM NASOPHARYNGEAL STRUCTURE / Unknown Collection / Unknown 07/17/2024 12:03 AM COFFEE SAMPLER 07/17/2024 12:11 AM COFFEE SAMPLER Narrative [facility] - 07/17/2024 12:51 AM COFFEE SAMPLER This nucleic acid amplification assay has been [...] LAB - MICROBIOLOGY ORDERABLES Fi nal Result [facility] [address] [place] [phone], [facility] [phone] * CT Abdomen Pelvis W Contrast (07/16/2024 11:41 PM COFFEE SAMPLER) Anatomical Region Laterality Modality Abdomen, Pelvis Computed Tomogra phy 07/17/2024 12:0 2 AM COFFEE SAMPLER Impressions 07/17/2024 8:29 AM COFFEE SAMPLER Impression: 1.No acute process identified in the [...] > Dictated by Ashu Welch MD (resident hall director). I, Bebo Kuo MD have personally reviewed and interpreted this examination/study. > Interpreting Provider: Bebo Kuo MD on 07/17/2024 8:29 AM Narrative 07/17/2024 8:29 AM COFFEE SAMPLER PROCEDURE: CT ABDOMEN PELVIS W CONTRAST, DATE/TIME OF EXAM: 07/16/2024 11:42 PM, LOCATION [facility] INDICATION: R11.2: Nausea and vomiting, unspecified [...] DATE/TIME OF EXAM: 07/16/2024 11:42 PM, LOCATION [facility] INDICATION: R11.2: Nausea and vomiting, unspecified [...] > Dictated by Ashu Welch MD (resident hall director). I, Bebo Kuo MD have personally reviewed and interpreted this examination/study. > Interpreting Provider: Bebo Kuo MD on 58:29 AM Quan Gan MD CT ORDERABLES Final Result * LACTIC ACID BLOOD REFLEX TO REPEAT (07/16/2024 10:44 PM COFFEE SAMPLER) Lactic Acid-Stat 1.9 <=2.0 mmol/L 07/16/2024 11:19 PM COFFEE SAMPLER [facility] Blood BLOOD SPECIMEN / Unknown Venipuncture / Unknown 07/16/2024 10:44 PM COFFEE SAMPLER 07/16/2024 10:52 PM COFFEE SAMPLER Result [facility] Quan Gan MD LAB - CHEMISTRY ORDERABLES Final Result [address] [address], [place] [phone] * CK BLOOD (07/16/2024 10:44 PM COFFEE SAMPLER) [facility] CK Total 92 30 - 200 U/L 07/16/2024 11:23 PM COFFEE SAMPLER [facility] Blood BLOOD SPECIMEN / Unknown Venipuncture / Unknown 07/16/2024 10:44 PM COFFEE SAMPLER 07/16/2024 10:52 PM COFFEE SAMPLER Result [facility] Quan Gan MD LAB - CHEMISTRY ORDERABLES Final Result Performing Organization Address [facility] Co de Phone Number [address] [address], [place] [phone] * HEPATITIS C AB SCREEN RFLX NAAT QUANT (09/01/2022 2:05 AM CDT) [facility] Hepatitis C Antibody Non-react phan Non-reac tive 09/01/2022 3:09 AM CDT [facility] Comment:Hepatitis C Antibody screen indicates no [...] AM CDT 09/01/2022 2:15 AM CDT Result [facility] Artemio Abarca MD LAB - CHEMISTRY ORDERABLES Fin al Result Performing Organization Address [facility]/ZIP Co de Phone Number [address] [address], [place] [phone] * HIV-1 HIV-2 ANTIBODY + HIV P24 AG PANEL (09/01/2022 2:05 AM CDT) HIV Antigen/Antibod y 1 & 2 Non-reacti ve Non-react phan 09/01/2022 3:09 AM CDT [facility] Comment:No Laboratory eviden ce of HIV infection. 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 Source: [facility]. 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
[2024-09-17 11:43] VITALS: BP 132/77; PULSE 67; RESP 19; O2SAT 98
--- NOTE | 2024-09-17 11:43 | PC.NURSE ---
New G-tube placed by EDP.
--- NOTE | 2024-09-17 12:16 | ED_ITS ---
HPI - Recheck/Abnormal Lab/Rx General Chief Complaint: Recheck/Abnormal Lab/Rx Stated Complaint: G TUBE REPLACED? Time Seen by Provider: 09/17/24 10:00 Source: patient, EMS, RN notes reviewed and old records reviewed Mode of arrival: EMS Limitations: other (tracheostomy in place) History of Present Illness HPI narrative: This is a 64 year old male with history of tracheostomy in place, g tube who presents from a nursing facility for g tube replacement . Luis Fernando nurse reports facility reports they are unable to flush g tube and there is leakage around tube. PAtient states tube was placed at [facility] 5-6 months ago. HE denies pain surroundin his tube. He is complaining of his chronic back pain. Nursing agrees this is chronic pain. Related Data Home Medications ?Medication ?Instructions ?Recorded ?Confirmed ?Last Taken ?Type metoprolol tartrate 25 mg tablet 25 mg feeding tube BID 12/18/22 03/30/24 Unknown History polyethylene glycol 3350 17 17 g feeding tube DAILY PRN 12/18/22 03/30/24 Unknown History gram/dose oral powder Constipation bisacodyl 10 mg rectal suppository 10 mg RECTAL DAILY PRN Constipation 02/11/23 03/30/24 Unknown History sennosides 8.6 mg tablet (senna) 8.6 mg feeding tube BID 02/11/23 03/30/24 Unknown History guaifenesin 100 mg/5 mL oral liquid 300 mg feeding tube BID PRN Cough 07/08/23 03/30/24 Unknown History magnesium hydroxide 400 mg/5 mL 30 ml PO HS PRN Constipation 12/13/23 03/30/24 Unknown History oral suspension (Milk of Magnesia) artificial tears solution eye drops 1 drp ophthalmic (eye) PRN PRN Dry 02/10/24 03/30/24 Unknown History Eye(S) atorvastatin 40 mg tablet 40 mg PO HS 02/10/24 03/30/24 Unknown History calcium carbonate 500 mg/5 mL (as 1,250 mg PO Q6H PRN Heartburn 02/10/24 03/30/24 Unknown History calcium carb 1,250 mg/5 mL) oral suspension clobazam 10 mg tablet 10 mg feeding tube DAILY 02/10/24 03/30/24 Unknown History famotidine 20 mg tablet 20 mg feeding tube BID 02/10/24 03/30/24 Unknown History folic acid 1 mg tablet 1 mg feeding tube DAILY 02/10/24 03/30/24 Unknown History ipratropium 0.5 mg-albuterol 3 mg 3 ml inhalation Q6H PRN Shortness 02/10/24 03/30/24 Unknown History (2.5 mg base)/3 mL nebulization Of Breath soln lacosamide 10 mg/mL oral solution 200 mg feeding tube BID 02/10/24 03/30/24 Unknown History levetiracetam 100 mg/mL oral 1,500 mg feeding tube BID 02/10/24 03/30/24 Unknown History solution magnesium citrate (Citroma oral 296 ml PO DAILY PRN Constipation 02/10/24 03/30/24 Unknown History solution) thiamine HCl (vitamin B1) 100 mg 100 mg feeding tube DAILY 02/10/24 03/30/24 Unknown History tablet valproic acid (as sodium salt) 250 1,250 mg feeding tube QID 02/10/24 03/30/24 Unknown History mg/5 mL oral solution acetaminophen 650 mg/20.3 mL oral 650 mg feeding tube Q4H PRN Pain 03/30/24 03/30/24 Unknown History suspension (Scale Score 1-3) apixaban 5 mg tablet (Eliquis) 5 mg feeding tube BID 03/30/24 03/30/24 Unknown History aspirin 81 mg chewable tablet 81 mg feeding tube DAILY 03/30/24 03/30/24 Unknown History Allergies Allergy/AdvReac Type Severity Reaction Status Date / Time clonazepam Allergy Unknown Unknown Verified 08/20/24 06:49 [facility] Past Medical History Medical History Deep venous thrombosis of upper extremity Benign prostatic hyperplasia Cerebrovascular accident Residual expressive aphasia, dysphagia, and left-sided weakness. Chronic obstructive pulmonary disease Esophageal diverticulum Gastroparesis Iron deficiency anemia Vascular dementia with psychotic disturbance Seizure disorder Surgical History Surgical History History of gastrostomy tube placement History of tracheostomy History of left above knee amputation Family History Family History Other Unknown family medical history Social History Social History Social History: Surrogate medical decision maker: Adriane Hilliard, sibling. Code status: Full code. 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 Additional gender identity comments: Never Spiritual care concerns: No Exam Const: General: no acute distress and alert Nutritional Appearance: well nourished Eyes: EOM: EOMs intact bilaterally Neck: Other: tracheostomy in place, no surrounding swelling, no bleeding, no drainage, no erythema Resp: Effort & Inspection: normal respiratory effort Auscultation: clear to auscultation bilaterally Cardio: Rate: regular rate Rhythm: regular rhythm Heart sounds: no mu rmurs GI: GI Palp: Yes Soft to palpation, No Tenderness to palpation present (GI), No Guarding due to palpation present (GI) and No Rigid due to palpation Auscultation: normal bowel sounds Other: mid abdomen g tube in place Skin: General skin exam: normal color Psych: Mental Status: mental status grossly normal Course Reevaluation(s) Reevaluation #1: Patient had 18 FR g tube in place that nursing reports they were unable to flush. I replaced with 20 F g tube. Xray checked tube for placement and it appears to be in proper position. PAtient to be discharged back to facility. Date: 09/17/24 Time: 12:22 Vital Signs Vital signs: Vital Signs Pulse Rate 64 09/17/24 09:46 Respiratory Rate 18 09/17/24 09:46 Blood Pressure 143/82 H 09/17/24 09:46 Pulse Oximetry 100 09/17/24 09:46 Pulse Rate 67 09/17/24 11:43 Respiratory Rate 19 09/17/24 11:43 Blood Pressure 132/77 09/17/24 11:43 Pulse Oximetry 98 09/17/24 11:43 Oxygen Delivery Room Air 09/17/24 10:05 Fraction of Inspired Oxygen 09/17/24 10:05 Procedures Feeding Tube Replacement Feeding Tube #1: Feeding Tube Placement Date: 09/17/24 Feeding Tube Placement Time: 11:30 Type of Tube: gastrostomy Insertion Site Prior to Procedure: clean Syriac Tube Size (F): 20 Balloon size (mL): 20 Verification of Placement: gastrografin injection Tube Secured by: tape/dressing Patient Tolerated Procedure: well MDM - Recheck/Abnormal Lab/Rx Medical Records Attestation: I reviewed the patient's medical records. Imaging Data Radiologist's impression: ITS Impressions Abdomen X-Ray 09/17/24 11:56 IMPRESSION: Gastrostomy tube in good position and ready for immediate use. Discharge Plan Discharge Clinical Impression: Encounter for feeding tube placement Patient Disposition: NH Nursing Home/Asst Living Condition: Stable Instructions: Antibiotic Form, How to Use and Care for Your PEG Tube (DC) Patient Language: Faroese Prescriptions: No Action bisacodyl 10 mg Suppository 10 mg RECTAL DAILY PRN (Reason: Constipation) Rx Instructions: if no results for MOM sennosides [senna] 8.6 mg Tablet 8.6 mg feeding tube BID guaifenesin 100 mg/5 mL liquid 300 mg feeding tube BID PRN (Reason: Cough) magnesium hydroxide [Milk of Magnesia] 400 mg/5 mL Suspension 30 ml PO HS PRN (Reason: Constipation) Rx Instructions: If no BM in 3 days azithromycin 250 mg tablet 250 mg PO DAILY 4 Days Qty: 4 0RF Rx Instructions: start on day 2 of therapy (08/21/24); already received first dose 08/20/24 polyethylene glycol 3350 17 gram/dose powder 17 g feeding tube DAILY PRN (Reason: Constipation) metoprolol tartrate 25 mg tablet 25 mg feeding tube BID atorvastatin 40 mg tablet 40 mg PO HS ipratropium-albuterol 0.5 mg-3 mg(2.5 mg base)/3 mL solution for nebulization 3 ml INHALATION Q6H PRN (Reason: Shortness Of Breath) artificial tears solution Drops 1 drp OPHTHALMIC (EYE) PRN PRN (Reason: Dry Eye(S)) Rx Instructions: instill 1 drop per eye as needed for dry eye thiamine HCl (vitamin B1) 100 mg Tablet 100 mg feeding tube DAILY famotidine 20 mg tablet 20 mg feeding tube BID valproic acid (as sodium salt) 250 mg/5 mL solution 1,250 mg feeding tube QID magnesium citrate [Citroma] Solution 296 ml PO DAILY PRN (Reason: Constipation) Rx Instructions: if no results from enema folic acid 1 mg tablet 1 mg feeding tube DAILY levetiracetam 100 mg/mL solution 1,500 mg feeding tube BID calcium carbonate 500 mg/5 mL (1,250 mg/5 mL) Suspension 1,250 mg PO Q6H PRN (Reason: Heartburn) lacosamide 10 mg/mL solution 200 mg feeding tube BID clobazam 10 mg tablet 10 mg feeding tube DAILY Eliquis 5 mg Tablet 5 mg feeding tube BID aspirin 81 mg Tablet,Chewable 81 mg feeding tube DAILY acetaminophen 650 mg/20.3 mL Suspension 650 mg feeding tube Q4H PRN (Reason: Pain (Scale Score 1-3)) meropenem 1 gram Recon Soln 1 g IV Q8H Qty: 8 0RF Follow-up/Referrals: Lauro,MD Burke [Primary Care Provider] -
[2024-09-17 13:16] VITALS: BP 119/79; PULSE 74; RESP 18; O2SAT 100
== END 2024-09-17 13:20 ==
PROVIDERS: Emergency Provider General Practice; PCP Internal Medicine
DX: K94.23 Gastrostomy malfunction (principal); Z79.01 Long term (current) use of anticoagulants; Z79.82 Long term (current) use of aspirin; Z86.718 Personal history of other venous thrombosis and embolism; G40.909 Epilepsy, unspecified, not intractable, without status epilepticus; Z89.612 Acquired absence of left leg above knee; Z87.891 Personal history of nicotine dependence
CPT/HCPCS: 43762; 99283

== ENCOUNTER 2024-09-19 06:53 | Emergency (ER) | payer OTHER, SELFPAY ==
[2024-09-19 06:51] VITALS: BP 158/91; PULSE 68; RESP 14; TEMP 37.1; O2SAT 98
--- NOTE | 2024-09-19 07:25 | ED.GENADULT ---
HPI - General Adult General Chief complaint: Unspecified Stated complaint: Displaced feeding tube Time Seen by Provider: 09/19/24 07:20 Source: EMS Mode of arrival: EMS Limitations: clinical condition History of Present Illness HPI narrative: Patient woke up this morning with feeding tube was dislodged.. Patient came from intermediate by ambulance. Related Data Home Medications ?Medication ?Instructions ?Recorded ?Confirmed ?Last Taken ?Type metoprolol tartrate 25 mg tablet 25 mg feeding tube BID 12/18/22 03/30/24 Unknown History polyethylene glycol 3350 17 17 g feeding tube DAILY PRN 12/18/22 03/30/24 Unknown History gram/dose oral powder Constipation bisacodyl 10 mg rectal suppository 10 mg RECTAL DAILY PRN Constipation 02/11/23 03/30/24 Unknown History sennosides 8.6 mg tablet (senna) 8.6 mg feeding tube BID 02/11/23 03/30/24 Unknown History guaifenesin 100 mg/5 mL oral liquid 300 mg feeding tube BID PRN Cough 07/08/23 03/30/24 Unknown History magnesium hydroxide 400 mg/5 mL 30 ml PO HS PRN Constipation 12/13/23 03/30/24 Unknown History oral suspension (Milk of Magnesia) artificial tears solution eye drops 1 drp ophthalmic (eye) PRN PRN Dry 02/10/24 03/30/24 Unknown History Eye(S) atorvastatin 40 mg tablet 40 mg PO HS 02/10/24 03/30/24 Unknown History calcium carbonate 500 mg/5 mL (as 1,250 mg PO Q6H PRN Heartburn 02/10/24 03/30/24 Unknown History calcium carb 1,250 mg/5 mL) oral suspension clobazam 10 mg tablet 10 mg feeding tube DAILY 02/10/24 03/30/24 Unknown History famotidine 20 mg tablet 20 mg feeding tube BID 02/10/24 03/30/24 Unknown History folic acid 1 mg tablet 1 mg feeding tube DAILY 02/10/24 03/30/24 Unknown History ipratropium 0.5 mg-albuterol 3 mg 3 ml inhalation Q6H PRN Shortness 02/10/24 03/30/24 Unknown History (2.5 mg base)/3 mL nebulization Of Breath soln lacosamide 10 mg/mL oral solution 200 mg feeding tube BID 02/10/24 03/30/24 Unknown History levetiracetam 100 mg/mL oral 1,500 mg feeding tube BID 02/10/24 03/30/24 Unknown History solution magnesium citrate (Citroma oral 296 ml PO DAILY PRN Constipation 02/10/24 03/30/24 Unknown History solution) thiamine HCl (vitamin B1) 100 mg 100 mg feeding tube DAILY 02/10/24 03/30/24 Unknown History tablet valproic acid (as sodium salt) 250 1,250 mg feeding tube QID 02/10/24 03/30/24 Unknown History mg/5 mL oral solution acetaminophen 650 mg/20.3 mL oral 650 mg feeding tube Q4H PRN Pain 03/30/24 03/30/24 Unknown History suspension (Scale Score 1-3) apixaban 5 mg tablet (Eliquis) 5 mg feeding tube BID 03/30/24 03/30/24 Unknown History aspirin 81 mg chewable tablet 81 mg feeding tube DAILY 03/30/24 03/30/24 Unknown History Allergies Allergy/AdvReac Type Severity Reaction Status Date / Time clonazepam Allergy Unknown Unknown Verified 08/20/24 06:49 Review of Systems Review of Systems: ROS unobtainable: Yes unobtainable due to medical condition PMFSH Past Medical History Medical History Deep venous thrombosis of upper extremity Benign prostatic hyperplasia Cerebrovascular accident Residual expressive aphasia, dysphagia, and left-sided weakness. Chronic obstructive pulmonary disease Esophageal diverticulum Gastroparesis Iron deficiency anemia Vascular dementia with psychotic disturbance Seizure disorder Surgical History Surgical History History of gastrostomy tube placement History of tracheostomy History of left above knee amputation Family History Family History Other Unknown family medical history Social History Social History Social History: Surrogate medical decision maker: Adriane Babak, sibling. Code status: Full code. 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 Additional gender identity comments: Never Spiritual care concerns: No Exam Narrative: General appearance: Well-developed, well-nourished Skin: Normal color ENT: Tracheostomy in place Neck: Supple, nontender Chest and respiratory: Airway patent, no respiratory distress, no accessory muscle use Heart: Regular rate/rhythm Abdomen: Feeding tube stoma, no discharge, no erythema, no signs of infection Course Vital Signs Vital signs: Vital Signs Temperature 37.1 C 09/19/24 06:51 Pulse Rate 68 09/19/24 06:51 Respiratory Rate 14 09/19/24 06:51 Blood Pressure 158/91 H 09/19/24 06:51 Pulse Oximetry 98 09/19/24 06:51 Oxygen Delivery Room Air 09/19/24 06:51 Temperature 37.1 C 09/19/24 06:51 Pulse Rate 67 09/19/24 07:51 Respiratory Rate 14 09/19/24 06:51 Blood Pressure 161/92 H 09/19/24 07:51 Pulse Oximetry 99 09/19/24 07:51 Oxygen Delivery Room Air 09/19/24 06:51 Procedures Feeding Tube Replacement Feeding Tube #1: Feeding Tube Placement Date: 09/19/24 Feeding Tube Placement Time: 07:55 Type of Tube: G-J Tube Insertion Site Prior to Procedure: clean Tube Used for Reinsertion: other Verification of Placement: auscultation Tube Secured by: tape/dressing Patient Tolerated Procedure: well Medical Decision Making MDM Narrative Medical decision making narrative: Feeding tube replacement. Vital Signs Vital Signs: Vital Signs Temperature 37.1 C 09/19/24 06:51 Pulse Rate 68 09/19/24 06:51 Respiratory Rate 14 09/19/24 06:51 Blood Pressure 158/91 H 09/19/24 06:51 Pulse Oximetry 98 09/19/24 06:51 Oxygen Delivery Room Air 09/19/24 06:51 Temperature 37.1 C 09/19/24 06:51 Pulse Rate 67 09/19/24 07:51 Respiratory Rate 14 09/19/24 06:51 Blood Pressure 161/92 H 09/19/24 07:51 Pulse Oximetry 99 09/19/24 07:51 Oxygen Delivery Room Air 09/19/24 06:51 Critical Care Time Critical Care Time Critical Care Time: No Discharge Plan Discharge Clinical Impression: Visit for feeding tube placement Patient Disposition: NH Nursing Home/Asst Living Condition: Stable Instructions: How to Use and Care for Your PEG Tube (DC), Tube Feeding (DC) Patient Language: Kiswahili Prescriptions: No Action bisacodyl 10 mg Suppository 10 mg RECTAL DAILY PRN (Reason: Constipation) Rx Instructions: if no results for MOM sennosides [senna] 8.6 mg Tablet 8.6 mg feeding tube BID guaifenesin 100 mg/5 mL liquid 300 mg feeding tube BID PRN (Reason: Cough) magnesium hydroxide [Milk of Magnesia] 400 mg/5 mL Suspension 30 ml PO HS PRN (Reason: Constipation) Rx Instructions: If no BM in 3 days azithromycin 250 mg tablet 250 mg PO DAILY 4 Days Qty: 4 0RF Rx Instructions: start on day 2 of therapy (08/21/24); already received first dose 08/20/24 polyethylene glycol 3350 17 gram/dose powder 17 g feeding tube DAILY PRN (Reason: Constipation) metoprolol tartrate 25 mg tablet 25 mg feeding tube BID atorvastatin 40 mg tablet 40 mg PO HS ipratropium-albuterol 0.5 mg-3 mg(2.5 mg base)/3 mL solution for nebulization 3 ml INHALATION Q6H PRN (Reason: Shortness Of Breath) artificial tears solution Drops 1 drp OPHTHALMIC (EYE) PRN PRN (Reason: Dry Eye(S)) Rx Instructions: instill 1 drop per eye as needed for dry eye thiamine HCl (vitamin B1) 100 mg Tablet 100 mg feeding tube DAILY famotidine 20 mg tablet 20 mg feeding tube BID valproic acid (as sodium salt) 250 mg/5 mL solution 1,250 mg feeding tube QID magnesium citrate [Citroma] Solution 296 ml PO DAILY PRN (Reason: Constipation) Rx Instructions: if no results from enema folic acid 1 mg tablet 1 mg feeding tube DAILY levetiracetam 100 mg/mL solution 1,500 mg feeding tube BID calcium carbonate 500 mg/5 mL (1,250 mg/5 mL) Suspension 1,250 mg PO Q6H PRN (Reason: Heartburn) lacosamide 10 mg/mL solution 200 mg feeding tube BID clobazam 10 mg tablet 10 mg feeding tube DAILY Eliquis 5 mg Tablet 5 mg feeding tube BID aspirin 81 mg Tablet,Chewable 81 mg feeding tube DAILY acetaminophen 650 mg/20.3 mL Suspension 650 mg feeding tube Q4H PRN (Reason: Pain (Scale Score 1-3)) meropenem 1 gram Recon Soln 1 g IV Q8H Qty: 8 0RF Follow-up/Referrals: Lauro,MD Burke [Primary Care Provider] -
--- NOTE | 2024-09-19 07:50 | PC.NURSE ---
New G tube placed at [facility] by EDP, Dr. Martínez.
[2024-09-19 07:51] VITALS: BP 161/92; PULSE 67; O2SAT 99
--- OUTSIDE RECORDS SUMMARY | 2024-09-19 08:09 | XMS_ITS | Encounter Summary ---
Author Organization [facility] - [facility] Address [address] [place] [address] Care Team Providers Care Fire Alarm Operator Name Role Phone Frank Toure MD Unavailable Joyce Luevano NP Primary Care Provider Unavaila Marielena Adame MD Primary Care Provider [phone] Encounter Details Date Type Department Care Team (Late st Contact Info) Description 03/13/2022 [employer] Message Enc [facility] Family Medicine - [address] [address] Joyce Luevano, LO[employer]ER [employer] Update Social History Tobacco Use [...] on filedocumented in this encounter Care Teams Fire Alarm Operator Relationship Specialty Start Date End Date Joyce Luevano NP [address] [place] [address] PCP - General NURSE PRACTITIONER 01/14/20 10/26/23 Marielena Smallwood MD [address] [place] [id number] PCP - General FAMILY PRACTICE 10/27/23 Frank Toure MD [address] [place] [address] [employer] Network Engineer CARDIOVASCULAR DISEASE 05/30/16 documented as of this encounter
--- OUTSIDE RECORDS SUMMARY | 2024-09-19 08:09 | XMS_ITS | Encounter Summary ---
Author Organization [facility] - [facility] Address [address] [place] [address] Care Team Providers Care Material Stress Tester Name Role Phone Frank Toure MD Unavailable Joyce Luevano NP Primary Care Provider Unavaila Marielena Adame MD Primary Care Provider [phone] Encounter Details Date Type Department Care Team (Late st Contact Info) Description 02/23/2022 [employer] Message Enc [facility] Family Medicine - [address] [address] Joyce Luevano, DIRECTOR OF MARKET ANALYSIS [employer] toenail Social History Tobacco Use [...] filedocumented in this encounter Care Teams Material Stress Tester Relationship Specialty Start Date End Date Joyce Luevano NP [address] [place] [address] PCP - General NURSE PRACTITIONER 01/14/20 10/26/23 Marielena Smallwood MD [facility] [place] [address] PCP - General FAMILY PRACTICE 10/27/23 Frank Toure MD [address] [place] [address] [employer] Supervisor CARDIOVASCULAR DISEASE 05/30/16 documented as of this encounter
--- OUTSIDE RECORDS SUMMARY | 2024-09-19 08:09 | XMS_ITS | Data Portability ---
Demographics Address [address] [place] [address] Home Phone Mobile Phone Email Address Preferred Language en Marital Status Never Episcopal Affiliation Unknown Race Black or Irma rican Ethnic Group Not or Lati no Author Organization [facility] Address [address] [place] [address] Assessment No assessment recorded. Plan of Treatment Reminders Order Date Submit Date Provider Last Modified By Organization Details Last Modified Time Details Appointments None recorded. Lab None recorded. Referral None recorded. Procedures None recorded. Surgeries None recorded. Imaging None recorded. Medication Orders ibuprofen 800 mg tablet 2015 016 [facility] [employer], [address] [place] [address], [id number], 6 18:35:08 Prozac 20 mg capsule 2014 015 [facility] [employer], [address] [place] [address], [id number], 5 16:10:15 tramadol 50 mg tablet 2014 015 [facility] [employer], [address] [place] [address], [id number], 5 12:13:56 Flomax 0.4 mg capsule 2014 015 [employer], [address] [place] [address], [id number], 5 16:10:16 Ambien 10 mg tablet 2014 015 [facility] 2 Compliance 11, [facility], [address] [place] [address], [id number], 5 10:37:28 Patient TargetsNo targets recorded. Patient Instructions Encounter Date Encounter Id Patient Instructions Last Modified By Organization Details Last Modified Time 06/10/2014 [id number] stroke: care instructions Not available 06/21/2014 17:33:19 insomnia: care instructions Not available 06/21/2014 17:33:19 epilepsy: care instructions Not available 06/21/2014 17:33:19 09/18/2014 [id number] epilepsy: care instructions dsalmond Not available 09/18/2014 17:05:10 back care and preventing injuries: care instructions dsalmond Not available 09/18/2014 17:05:10 04/16/2015 [id number] epilepsy: care instructions campadu Not available 04/16/2015 16:05:30 06/12/2015 [id number] stroke: care instructions dsalmond Not available 06/13/2015 12:21:31 epilepsy: care instructions dsalmond Not available 06/13/2015 12:21:31 learning about high blood pressure dsalmond Not available 06/13/2015 12:21:31 Reason for Referral None Reported. Results Created Date Observation Date Name Description Value Unit Range Abnormal Flag Note LastModifiedBy Organization Detail LastModifiedTime 06/12/19 16 06/12/2015 CBC w/ auto diff WBC 5.9 K/uL 3.4-10 .8 Not Available [facility] (Lab) [address] [place], [address], 06/12/2015 19:52:35 06/12/19 16 06/12/2015 CBC w/ auto diff red blood count 4.6 M/uL 4.5-6. 3 Not Available [facility] (Lab) [address], [place], [address], 06/12/2015 19:52:35 06/12/19 16 06/12/2015 CBC w/ auto diff hemoglobin 14.7 g/dL 13.5-1 7.5 Not Available [facility] (Lab) [address] [place], [address], 06/12/2015 19:52:35 06/12/19 16 06/12/2015 CBC w/ auto diff hematocrit 44.5 % 40.0-5 2.0 Not Available [facility] (Lab) [address] [place], [address], 06/12/2015 19:52:35 06/12/19 16 06/12/2015 CBC w/ auto diff MCV 97 fL 80-95 high Not Available [facility] (Lab) [address] [place], [address], 06/12/2015 19:52:35 06/12/19 16 06/12/2015 CBC w/ auto diff MCH 32 pg 27-32 Not Available [facility] (Lab) [address] [place], [address], 06/12/2015 19:52:35 06/12/19 16 06/12/2015 CBC w/ auto diff MCHC 33 g/dL 32-36 Not Available [facility] (Lab) [address] [place], [address], 06/12/2015 19:52:35 06/12/19 16 06/12/2015 CBC w/ auto diff platelets 219 K/uL 155-37 9 Not Available [facility] (Lab) [address] [place], [address], 06/12/2015 19:52:35 06/12/19 16 06/12/2015 CBC w/ auto diff RDW 11.6 % 11.5-1 4.5 Not Available [facility] (Lab) [address] [place], [address], 06/12/2015 19:52:35 06/12/19 16 06/12/2015 CBC w/ auto diff MPV 11.1 fL 8.9-12 .7 Not Available [facility] (Lab) [address] [place], [address], 06/12/2015 19:52:35 06/12/19 16 06/12/2015 CBC w/ auto diff neutrophils absolute 2.5 K/uL 1.4-7. 0 Not Available [facility] ([facility]) [address] [facility], [place], [address], 06/12/2015 19:52:35 06/12/19 16 06/12/2015 CBC w/ auto diff lymphs (absolute) 2.6 K/uL 0.7-3. 1 Not Available [facility] ([facility]) [address] [facility], [place], [address], 06/12/2015 19:52:35 06/12/19 16 06/12/2015 CBC w/ auto diff monocytes (absolute) 0.5 K/uL 0.1-0. 9 Not Available [facility] (Lab) [address] [place], [address], 06/12/2015 19:52:35 06/12/19 16 06/12/2015 CBC w/ auto diff eos (absolute) 0.2 K/uL 0.0-0. 4 Not Available [facility] (Lab) [address] [place], [address], 06/12/2015 19:52:35 06/12/19 16 06/12/2015 CBC w/ auto diff baso (absolute) 0.0 K/uL 0.1-0. 3 low Not Available [facility] (Lab) [address] [facility], [place], [address], 06/12/2015 19:52:35 06/12/19 16 06/12/2015 CBC w/ auto diff neut % 43.1 % 40.0-7 4.0 Not Available [facility] (Lab) [address] [place], [address], 06/12/2015 19:52:35 06/12/19 16 06/12/2015 CBC w/ auto diff lymphs % 44.6 % 14.0-4 6.0 Not Available [facility] (Lab) [address] [place], [address], 06/12/2015 19:52:35 06/12/19 16 06/12/2015 CBC w/ auto diff mono % 8.7 % 4.0-12 .0 Not Available [facility] (Lab) [address], [place], [address], 06/12/2015 19:52:35 06/12/19 16 06/12/2015 CBC w/ auto diff eos % 3 % <=5 Not Available [facility] (Lab) [address], [place], [address], 06/12/2015 19:52:35 06/12/19 16 06/12/2015 CBC w/ auto diff baso % 0.2 % 0.1-1. 1 Not Available [facility] ([facility]) [address] [facility], [place], [address], 06/12/2015 19:52:35 06/12/19 16 06/13/2015 HbA1c (hemo globi n A1c), blood hemoglobin A1C 5.4 % 4.8-5. 6 . Pre-d iabet es: 5.7 - 6.4 Diabe ievt: >6.4 Glyce [place] contr ol for adult s with diabe ivet: <7.0 Not Available [facility] (Lab) [address], [place], [address], 06/13/2015 04:12:44 06/12/19 16 06/13/2015 T4, total , serum thyroxine T4 4.7 ug/dL 4.5-12 .0 Not Available [facility] (Lab) [address] [place], [address], 06/13/2015 05:19:09 06/12/19 16 06/13/2015 CMP, serum or plasm a glucose, serum 98 mg/dL 65-99 Not Available [facility] [address], [place], [address], 06/13/2015 05:19:11 06/12/19 16 06/13/2015 CMP, serum or plasm a BUN 7 mg/dL 6-24 Not Available [facility] (Lab) [address], [place], [address], 06/13/2015 05:19:11 06/12/19 16 06/13/2015 CMP, serum or plasm a creatinine, serum 0.78 mg/dL 0.76-1 .27 Not Available [facility] (Lab) [address], [place], [address], 06/13/2015 05:19:11 06/12/19 16 06/13/2015 CMP, serum or plasm a eGFR if nonafricn AM 102 mL/mi n/1.7 3 >59 Not Available [facility] (Lab) [address], [place], [address], 06/13/2015 05:19:11 06/12/19 16 06/13/2015 CMP, serum or plasm a eGFR if 118 mL/mi n/1.7 3 >59 Not Available [facility] (Lab) [address], [place], [address], 06/13/2015 05:19:11 06/12/19 16 06/13/2015 CMP, serum or plasm a BUN/creatini ne ratio 9 9-20 Not Available [facility] (Lab) [address], [place], [address], 06/13/2015 05:19:11 06/12/19 16 06/13/2015 CMP, serum or plasm a sodium, serum 141 mmol/ L 134-14 4 Not Available [facility] (Lab) [address] [place], [address], 06/13/2015 05:19:11 06/12/19 16 06/13/2015 CMP, serum or plasm a potassium, serum 4.5 mmol/ L 3.5-5. 2 Not Available [facility] (Lab) [address], [place], [address], 06/13/2015 05:19:11 06/12/19 16 06/13/2015 CMP, serum or plasm a chloride, serum 101 mmol/ L 97-108 Not Available [facility] (Lab) [address] [place], [address], 06/13/2015 05:19:11 06/12/19 16 06/13/2015 CMP, serum or plasm a carbon dioxide, total 23 mmol/ L 18-29 Not Available [facility] (Lab) [address], [place], [address], 06/13/2015 05:19:11 06/12/19 16 06/13/2015 CMP, serum or plasm a calcium, serum 9.5 mg/dL 8.7-10 .2 Not Available [facility] (Lab) [address], [place], [address], 06/13/2015 05:19:11 06/12/1906/13/2015 CMP, serum or plasm a protein total serum 7.2 g/dL 6.0-8. 5 Not Available [facility] (Lab) [address], [place], [address], 06/13/2015 05:19:11 06/12/1906/13/2015 CMP, serum or plasm a albumin, serum 4.5 g/dL 3.5-5. 5 Not Available [facility] (Lab) [address], [place], [address], 06/13/2015 05:19:11 06/12/19 16 06/13/2015 CMP, serum or plasm a globulin total 2.7 g/dL 1.5-4. 5 Not Available [facility] (Lab) [address], [place], [address], 06/13/2015 05:19:11 06/12/1906/13/2015 CMP, serum or plasm a A/G ratio 1.7 1.1-2. 5 Not Available [facility] (Lab) [address], [place], [address], 06/13/2015 05:19:11 06/12/1906/13/2015 CMP, serum or plasm a bilirubin total <0.2 mg/dL 0.0-1. 2 Not Available [facility] (Lab) [address] [place], [address], 06/13/2015 05:19:11 06/12/19 16 06/13/2015 CMP, serum or plasm a alkaline phosphatase ser 105 IU/L 39-117 Not Available [facility] ([facility]) [address], [place], [address], 06/13/2015 05:19:11 06/12/19 16 06/13/2015 CMP, serum or plasm a AST (SGOT) 20 IU/L 0-40 Not Available [facility] ([facility]) [address] [place], [address], 06/13/2015 05:19:11 06/12/19 16 06/13/2015 CMP, serum or plasm a ALT (SGPT) 18 IU/L 0-44 Not Available [facility] (Lab) [address] [place], [address], 06/13/2015 05:19:11 06/12/19 16 06/13/2015 TSH, serum or plasm a TSH 2.010 uIU/m L 0.450- 4.500 Not Available [facility] (Lab) [address] [place], [address], 06/13/2015 05:19:12 06/12/19 16 06/13/2015 PSA, serum [...] t be inter prete d as absol seneca evide nce of the prese nce or absen ce of truong mena . Not Available [facility] (Lab) [address] [place], [address], 06/13/2015 05:19:13 06/12/19 16 06/13/2015 lipid panel w/ direc t LDL, serum cholesterol, total 215 mg/dL 100-19 9 high Not Available [facility] ([facility]) [address] [place], [address], 06/13/2015 05:19:14 06/12/19 16 06/13/2015 lipid panel w/ direc t LDL, serum triglyceride s 73 mg/dL 0-149 Not Available [facility] ([facility]) [address] [place], [address], 06/13/2015 05:19:14 06/12/19 16 06/13/2015 lipid panel w/ direc t LDL, serum HDL cholesterol 85 mg/dL >39 Accor ding to ATP-I II Guide lines , HDL-C >59 mg/dL is consi dered a negat phan risk facto r for CHD. Not Available [facility] (Lab) [address] [place], [address], 06/13/2015 05:19:14 06/12/19 16 06/13/2015 lipid panel w/ direc t LDL, serum VLDL cholesterol margarita 15 mg/dL 5-40 Not Available [facility] ([facility]) [address] [place], [address], 06/13/2015 05:19:14 06/12/19 16 06/13/2015 lipid panel w/ direc t LDL, serum LDL cholesterol calc 115 mg/dL 0-99 high Not Available [facility] ([facility]) [address] [place], [address], 06/13/2015 05:19:14 06/12/19 16 06/13/2015 lipid panel w/ direc t LDL, serum lipid calculation Not Available [facility]) [address] [place], [address], 06/13/2015 05:19:14 09/22/19 15 09/21/2014 imagi ng/di agnos tic resul t No observ ation record ed. [address] , [place], [address], 09/30/2014 11:19:53 09/26/19 15 imagi ng/di agnos tic resul t No observ ation record ed. [email or web address] Not Available 2014 11:08:28 10/01/19 15 09/27/2014 imagi ng/di agnos tic resul t No observ ation record ed. [address] [place], [address], 10/03/2014 11:08:29 11/09/19 15 11/08/2014 imagi ng/di agnos tic resul t No observ ation record ed. [email or web address] Not Available 2014 15:10:11 12/02/19 15 12/01/2014 imagi ng/di agnos tic resul t No observ ation record ed. [email or web address] Not Available 2014 10:38:41 01/03/20 15 12/31/2014 imagi ng/di agnos tic resul t No observ ation record ed. [facility] ([facility]) [address] [place], [address], 01/02/2015 09:50:17 01/07/20 15 01/05/2015 imagi ng/di agnos tic resul t No observ ation record ed. [email or web address] [facility], [place], [address], 01/06/2015 09:32:38 03/10/20 15 03/10/2015 imagi ng/di agnos tic resul t No observ ation record ed. [email or web address] [facility] (Rad) [address] [place], [address], 03/10/2015 12:50:58 03/11/20 15 03/11/2015 CV EKG 12 lead MOJGAN TABOR MD: KIRILL ANN MD 6905 ACCT: [id number] ADMIT/ SERVIC E DATE: DISCHA RGE DATE: : 1959 PT TYPE: ADM IN SEX: M ORD SITE: [address] TEST DATE: 2014-05 PAT NAME: MOJGAN TABOR DEPART MENT: CARD 40 PATIEN T ID: [id number] ROOM: [facility] GENDER : MALE TECHNI MARIA ISABEL: CDN : 01-[address] BY: CADE ANN ORDER NUMBER : [id number] 01SEB CJ Lu MD: FELIPE SELF MEASUR EMENTS INTERV ALS AXIS RATE: 145 P: 81 [place]: 118 QRS: 19 QRSD: 82 T: 70 QT: 282 QTC: 438 INTERP RETIVE STATEM ENTS SINUS TACHYC ARDIA WITH SHORT [place] INTERV AL WITH OCCASI ONAL VENTRI CULAR PREMAT URE COMPLE XES WITH OCCASI ONAL SUPRAV ENTRIC ULAR AMBER SEPTAL MYOCAR DIAL INFARC TION, PROBAB LY OLD NONSPE CIFIC ST SEGMEN T ABNORM ALITIE S, CANNOT RULE OUT ISCHEM IA ELECTR ONICAL LY SIGNED BY FELIPE SELF AT 17:03: [address] [facility], [place], [address], 05/07/2015 04:08:47 03/11/20 15 03/11/2015 xr chest 1 view alejandraMOJGAN Hester 6905 ADMIT/ SERVIC E DATE: ACCT: [id number] DISCHA RGE DATE: : 1959 SEX: M ORD SITE: [facility] PT TYPE: ADM IN JING MUHAMMAD MD: KIRILL ANN MD STUDY DATE REPORT # ORDER # EXT ORDER ID [id number] 1.002 PROC CODE: [id number] ORT PROCED URE DESCRI PTION: XR CHEST 1 VIEW PORTAB LE I MPRESS ION: NO ACUTE INFILT RATE. EXAMIN ATION: PORTAB LE CHEST X-RAY 1 VIEW ACCESS ION: [id number] EXAM DATE/T TRAVON: 2014 8:36 PM CLINIC [...] SIGNED BY: MARYBEL CROUCH ER10/07/2014 8:[address] [facility], [place], [address], 05/07/2015 04:08:47 03/12/20 15 03/12/2015 MRI brain wo MOJGAN TABOR 6905 ADMIT/ SERVIC E DATE: ACCT: [id number] DISCHA RGE DATE: : 1959 SEX: M ORD SITE: [facility] PT TYPE: ADM IN BRANDONI SABINA MD: KIRILL ANN MD STUDY DATE REPORT # ORDER # EXT ORDER ID [id number] 1.001 PROC CODE: BRNWOC PROCED URE DESCRI [...] BRAIN WITHOU T CONTRA ST. ACCESS ION: [id number] EXAM DATE/T TRAVON: 2014 11:23 AM CLINIC [...] SIGNED BY: CADE GRAY 11:51 AM build [facility], [place], [address], 05/07/2015 04:08:47 06/19/19 16 06/19/2015 imagi ng/di agnos tic resul t No observ ation record ed. [facility] Not Available 2015 09:33:44 06/19/19 16 06/19/2015 imagi ng/di agnos tic resul t No observ ation record ed. [facility] (Lab) [address] [place] [address] , [place], [address], 06/19/2015 09:33:44 06/19/19 16 06/19/2015 imagi ng/di agnos tic resul t No observ ation record ed. [facility] (Lab) [address] [place] [address] [place], [address], 06/20/2015 09:57:26 06/20/19 16 06/19/2015 imagi ng/di agnos tic resul t No observ ation record ed. [address] [place], [address], 06/20/2015 10:01:56 05/09/20 19 05/09/2019 , les aldana id arter y No observ ation record ed. [address] [place], [address], 05/09/2019 17:59:20 Result Notes None recorded. Problems Name Problem SNOMED Code Status Onset Date Resolution Date Notes Provider Name and Address Organization Details Recorded Time Low back pain 899434859 Active Burke Ann MD Attn: Zulemalivia lu,[address] [facility], [place], [address], [place] [facility] 5 16:09:38 Essential hypertension 59180233 Active Burke Ann MD Attn: Austin tabitha,[address] [facility], [place], [address], [place] [facility] 6 18:34:53 Anxiety 10695715 Active Burke Ann MD Attn: Austin lu,[address] [facility], [place], [address], [place] [facility] 5 15:03:30 Laceration - injury 481793665 Active Burke Ann MD Attn: Zulemalivia lu,[address] [facility], [place], [address], [place] [facility] 5 15:31:20 Seizure disorder 386359887 Active Burke Ann MD Attn: Austin tabitha,[address] [facility], [place], [address], [place] [facility] 6 18:34:53 Cerebrovascula r accident 902223937 Active Burke Ann MD Attn: [place] tabitha,[address] [facility], [place], [address], [place] [facility] 6 18:34:53 Insomnia 673782139 Active Burke Ann MD Attn: Austin lu,[address] [facility], [place], [address], [place] [facility] 5 15:31:20 Problem Notes None recorded. Procedures Surgical History None recorded. Imaging Results Imaging Date Name Status LastModified by Organiz ation Details LastModified Time 09/21/2014 imaging/diagn ostic result completed [address] [place], [address], 09/30/2014 11:19:53 09/25/2014 imaging/diagn ostic result completed Information not available 10/03/2014 11:08:28 09/27/2014 imaging/diagn ostic result completed [address] [place], [address], 10/03/2014 11:08:29 11/08/2014 imaging/diagn ostic result completed Information not available 11/11/2014 15:10:11 12/01/2014 imaging/diagn ostic result completed [email or web address] Information not available 12/02/2014 10:38:41 12/31/2014 imaging/diagn ostic result completed [email or web address] [facility] ([facility]) [address] [place], [address], 01/02/2015 09:50:17 01/05/2015 imaging/diagn ostic result [place] [email or web address] [place], [address], 01/06/2015 09:32:38 03/10/2015 imaging/diagn ostic result completed [email or web address] [facility] ([facility]) [address] [place], [address], 03/10/2015 12:50:58 03/11/2015 CV EKG 12 [place], [address], 05/07/2015 04:08:47 03/11/2015 xr chest 1 [place], [address], 05/07/2015 04:08:47 03/12/2015 [place], [address], 05/07/2015 04:08:47 06/19/2015 imaging/diagn ostic result completed [facility] Information not available 06/19/2015 09:33:44 06/19/2015 imaging/diagn ostic result completed [facility] (Lab) [address] [place] [address] [place], [address], 06/19/2015 09:33:44 06/19/2015 imaging/diagn ostic result completed [facility] (Lab) [address] [place] [address] [place], [address], 06/20/2015 09:57:26 06/19/2015 imaging/diagn ostic result completed [address] [place], [address], 06/20/2015 10:01:56 05/09/2019 US, duplex, carotid artery completed [address] [place], [address], 05/09/2019 17:59:20 Procedure Notes None recorded. Medical [...] Details Last Updated DateTime 5 22 /min 70706.9 66139 g 98.7 [degF] 170.18 cm 21.4 kg/m2 80 /min 148 mm[Hg] 94 mm[Hg] Leonor Arauz MA [facility] 5 15:57:48 Date Recorded Body height Body mass index (BMI) Body weight Heart rate Respiratory rate Body temperature Systolic blood pressure Diastolic blood pressure Provider Name and Address Organization Details Last Updated DateTime 5 170.18 cm 21.5 kg/m2 26754.1 5469 g 88 /min 20 /min 98.2 [degF] 132 mm[Hg] 80 mm[Hg] Fior Pereyra MA [facility] 5 12:08:47 Date Recorded Body temperature Body height Body mass index (BMI) Heart rate Respiratory rate Body weight Systolic blood pressure Diastolic blood pressure Provider Name and Address Organization Details Last Updated DateTime 5 97.9 [degF] 175.26 cm 20.2 kg/m2 78 /min 18 /min 31935.1 5469 g 142 mm[Hg] 90 mm[Hg] Jeannasunitha Luan [facility] 5 13:46:55 Date Recorded Heart rate Body height Respiratory rate Body mass index (BMI) Body weight Body temperature Systolic blood pressure Diastolic blood pressure Provider Name and Address Organization Details Last Updated DateTime 6 92 /min 170.18 cm 20 /min 21.5 kg/m2 30397.1 5469 g 98 [degF] 102 mm[Hg] 78 mm[Hg] Leonor Arauz MA [facility] 6 16:31:07 Social History None recorded. Functional [...] Skin Problems N Anemia N Heart Attack (AR) N Anxiety Disorder Y Diabetes N Muscle, Joint, or Bone Problems N Seizures/Epilepsy Y Acid Reflux (GERD) N Cancer N Stroke Y Asthma N Allergies N High Cholesterol N Hepatitis N Liver Disease N Headaches Y Heart Failure N Osteoporosis N Past Encounters Encounter ID Performer Location Encounter Start Date Encounter Closed Date Diagnosis/Indication Diagnosis SNOMED-CT Code Diagnosis ICD10 Code Diagnosis Note [id number] Jeannie Sherman RN [facility] (Adult[facility] Med) [address] [place] [phone] 06/10/2014 13:26:21 06/10/2014 18:13:06 Laceration - injury 377408905 Seizure disorder 945582962 Cerebrovas cular accident 343765647 Insomnia 440515541 [id number] Nata Albert LPN [facility] (Adult/Fa m Med) [address] [place] [phone] 09/18/2014 14:45:50 09/18/2014 18:01:22 Seizure disorder 176235369 Anxiety 59634742 Low back pain 211370834 [id number] Crystal Toy [facility] (Adult/Fa m Med) [address] [place] [phone] 04/16/2015 11:24:38 04/16/2015 17:33:17 Essential hypertension 66939743 I10 Anxiety 48667589 F41.9 Seizure disorder 7011030 02 G40.909 [id number] Dotty Peace [facility] (Adult/Fa m Med) [address] [place] [phone] 06/12/2015 15:25:04 06/27/2015 12:04:51 Essential hypertension 74985856 I10 Seizure disorder 5925586 02 G40.909 Cerebrovas cular accident 647681492 I63.9 Health Concerns Section Related Observation LastModified by Organization Detai ls LastModified Time None Recorded Concern Status LastModified by Organization Details LastModified Time None Recorded Advance Directives Directive None Recorded Payers Encounter Date Sequence Insurance Name Policy Number Policy Gilbert Covered Member ID Gilbert Member ID Guarantor Name 06/10/2014 1 [facility] PRIOR TO 11/27/2020 (MEDICAID REPLACEMENT - HMO) Mojgan Tabor [id number] Mojgan Tabor 09/18/2014 1 [facility] PRIOR TO 11/27/2020 (MEDICAID REPLACEMENT - HMO) Mojgan Tabor [id number] Mojgan Tabor 04/16/2015 1 [facility] PRIOR TO 11/27/2020 (MEDICAID REPLACEMENT - HMO) Mojgan Tabor [id number] Mojgan Tabor 06/12/2015 1 [facility] PRIOR TO 11/27/2020 (MEDICAID REPLACEMENT - HMO) Mojgan Tabor [id number] Mojgan Tabor Notes Date Note Type Note Provider Name and Address Organization Details Recorded Time 04/16/2015 text/html FOLLOW up care since stroke Burke Ann MD Attn: [employer],[address] [place], [address], [place] [facility] 04/16/2015 15:03:31
--- OUTSIDE RECORDS SUMMARY | 2024-09-19 08:09 | XMS_ITS | Clinical Summary ---
Author Organization [facility] [employer] Address [address] [place] [address] Care Team Providers Care Athletic Monitor Name Role Phone Elizabeth Sullivan RN Unavailable [phone] Dany Monsivais MD Primary Care Provider Source Comments [facility] [employer],non-owned Affiliates and Associated Physician Practices is amultiple site organization consisting of ambulatory clinics and hospital sitesin [place], [place], [place] and [place]. This disclosure is being madepursuant to the Care Everywhere program and may not contain all information available regarding this patient. Last updated 18.[facility] [employer] Allergies Active Allergy Reactions Criticality Noted Date [...] No evidence of infection Urine cultures from [facility] last month were negative growth as [...] Team Description 09/07/2024 Travel 08/02/2024 4:31 PM SONOGRAM TECHNICIAN - 08/08/2024 8:48 PM CDT Hospital Encounter [facility] [address] [place] [address] Elmo Johnson MD Mayer, Joshua C, DO Arshad, Iqra, MD Archuleta, Lydia, MD Joag, Madhura, MD Internal Medicine Discharge Disposition: Fpc or Supportive Care 08/02/2024 1:23 AM SONOGRAM TECHNICIAN - 08/02/2024 8:15 AM SONOGRAM TECHNICIAN Emergency [facility] EMERGENCY DEPARTMENT [address] [place] [phone] Arthur Marinelli MD Other tracheostomy complication (Primary Dx); Abdominal pain, unspecified abdominal location Discharge Disposition: [facility] Facility 08/02/2024 Travel 07/27/2024 3:54 PM SONOGRAM TECHNICIAN - 07/28/2024 6:53 AM SONOGRAM TECHNICIAN Emergency [facility] EMERGENCY DEPARTMENT [address] [place] [phone] Serjio Vilchis MD Feeding intolerance (Primary Dx); Generalized abdominal pain; Chronic pulmonary aspiration, initial encounter Discharge Disposition: [facility] Facility 07/27/2024 Travel 07/18/2024 4:15 PM SONOGRAM TECHNICIAN - 07/18/2024 4:45 PM SONOGRAM TECHNICIAN Surgery [facility] ENDOSCOPY [address] [place] [phone] Clifton Trinh MD EGD(ISO) 07/18/2024 4:05 PM SONOGRAM TECHNICIAN Anesthesia Event [facility]OS[facility] [address] [place] [phone] Teri Trent MD Dobbs, Kristin L, COMPOUND WORKER-LAV CREWMAN 07/16/2024 9:23 PM SONOGRAM TECHNICIAN - 07/19/2024 5:51 PM SONOGRAM TECHNICIAN Hospital Encounter [facility] [address] ACUTE [address] [place] [phone] Quan Gan MD Arshad, Iqra, MD Bastin, Taylor J, MD Morreale, Peter J III, MD Emergency Medicine Discharge Disposition: [facility] Facility 07/16/2024 Travel from Last 3 Months Immunizations Immunization Administration Dates Next Due Covid Percello primary monoval ent 12+ yr 0.3mL Purple [...] and heating? Not hard at all 08/06/2024 [facility] [place] of Occupat ional Health - Occupational Stress [...] any time in the past 12 m [facility], were you homeless or living in a senior living (including now)? No 08/06/2024 Sex and Gender Information Value Date Recorded Sex Assigned at Not on file Legal Sex Male 5:07 PM SONOGRAM TECHNICIAN Gender Identity Not on file Sexual [...] 72.6 kg (160 lb) 08/04/2024 12:00 AM SONOGRAM TECHNICIAN Height 175.3 cm (5' 9.02 ) 08/04/2024 12:[address] Body Mass Index 23.62 08/04/2024 12:00 AM SONOGRAM TECHNICIAN Plan of Treatment Upcoming Encounters Date Type Department Care Team (Late st Contact Info) Description 10/03/2024 11:15 AM CDT Office Visit [facility] - Vascular Surgery [address] [place] [address], [place] [phone] Anna Membreno MD [facility] [address] [place] [address] 12/05/2024 1:00 PM CDT Office Visit [facility] - Neurology [address] [place] [address], [place] [address] Sean Raymundo DO [address] [place] [address] [address] [place] [address] Health Maintenance Due Date Last [...] POINT OF CARE Routine 08/05/2024 1:43 AM SONOGRAM TECHNICIAN CBC W/O DIFFERENTIAL Routine 08/05/2024 1:02 AM SONOGRAM TECHNICIAN Nausea without vomiting PT-INR [facility] Routine 08/05/2024 1:02 AM SONOGRAM TECHNICIAN Nausea without vomiting MAGNESIUM BLOOD Routine 08/05/2024 1:02 AM SONOGRAM TECHNICIAN Nausea without vomiting RENAL FUNCTION PANEL Routine 08/05/2024 1:02 AM SONOGRAM TECHNICIAN Nausea without vomiting CBC W/O DIFFERENTIAL Routine 08/04/2024 12:12 PM SONOGRAM TECHNICIAN Nausea without vomiting PSA FREE + TOTAL PANEL AM Draw 08/04/2024 12:12 PM SONOGRAM TECHNICIAN Acute cystitis without hematuria PT-INR [facility] Routine 08/04/2024 12:12 PM SONOGRAM TECHNICIAN Nausea without vomiting MAGNESIUM BLOOD Routine 08/04/2024 12:12 PM SONOGRAM TECHNICIAN Nausea without vomiting RENAL FUNCTION PANEL Routine 08/04/2024 12:12 PM SONOGRAM TECHNICIAN Nausea without vomiting CULTURE URINE STAT 08/03/2024 8:53 AM SONOGRAM TECHNICIAN Acute cystitis without hematuria HEMOGLOBIN A1C RINKU 08/03/2024 5:18 AM SONOGRAM TECHNICIAN Nausea without vomiting CBC W/O DIFFERENTIAL STAT 08/03/2024 5:18 AM SONOGRAM TECHNICIAN Nausea without vomiting PT-INR [facility] STAT 08/03/2024 5:18 AM SONOGRAM TECHNICIAN Nausea without vomiting MAGNESIUM BLOOD STAT 08/03/2024 5:18 AM SONOGRAM TECHNICIAN Nausea without vomiting RENAL FUNCTION PANEL STAT 08/03/2024 5:18 AM SONOGRAM TECHNICIAN Nausea without vomiting TYPE + SCREEN PANEL STAT 08/02/2024 9 :[address] CHEST ABDOMEN PELVIS W CONT STAT 08/02/2024 9:42 PM SONOGRAM TECHNICIAN Nausea without vomiting XR CHEST 1VW PORTABLE STAT 08/02/2024 5:15 PM SONOGRAM TECHNICIAN Nausea without vomiting URINALYSIS REFLEX TO MICROSCOPIC NO CULTURE STAT 08/02/2024 5:08 PM SONOGRAM TECHNICIAN PT-INR [facility] STAT 08/02/2024 5:08 PM SONOGRAM TECHNICIAN COMPREHENSIVE METABOLIC PANEL STAT 08/02/2024 5:08 PM SONOGRAM TECHNICIAN LIPASE BLOOD STAT 08/02/2024 5:08 PM SONOGRAM TECHNICIAN CBC W AUTO DIFFERENTIAL STAT 08/02/2024 5:08 PM SONOGRAM TECHNICIAN XR CHEST 1VW PORTABLE STAT 08/02/2024 2:33 AM SONOGRAM TECHNICIAN Abdominal pain, unspecified abdominal location LIPASE BLOOD STAT 08/02/2024 2:03 AM SONOGRAM TECHNICIAN COMPREHENSIVE METABOLIC PANEL STAT 08/02/2024 2:03 AM SONOGRAM TECHNICIAN CBC W AUTO DIFFERENTIAL STAT 08/02/2024 2:[address] CHEST ABDOMEN PELVIS W CONT STAT 07/28/2024 12:25 AM SONOGRAM TECHNICIAN Generalized abdominal pain COMPREHENSIVE METABOLIC PANEL STAT 07/27/2024 6:26 PM SONOGRAM TECHNICIAN CBC W AUTO DIFFERENTIAL STAT 07/27/2024 6:26 PM SONOGRAM TECHNICIAN TROPONIN-I HIGH SENSITIVE BASELINE + 1HR STAT 07/27/2024 6:26 PM SONOGRAM TECHNICIAN MAGNESIUM BLOOD STAT 07/27/2024 6:26 PM SONOGRAM TECHNICIAN LIPASE BLOOD STAT 07/27/2024 6:26 PM SONOGRAM TECHNICIAN EKG 12-LEAD Routine 07/27/2024 5:34 PM SONOGRAM TECHNICIAN Generalized abdominal pain XR CHEST 1VW PORTABLE Routine 07/27/2024 12:39 PM SONOGRAM TECHNICIAN Nausea and vomiting, unspecified vomiting type GLUCOSE - POINT OF CARE Routine 07/19/2024 5:00 PM SONOGRAM TECHNICIAN GLUCOSE - POINT OF CARE Routine 07/19/2024 12:10 PM SONOGRAM TECHNICIAN GLUCOSE - POINT OF CARE Routine 07/19/2024 8:10 AM SONOGRAM TECHNICIAN CBC W AUTO DIFFERENTIAL Routine 07/19/2024 5:27 AM SONOGRAM TECHNICIAN Coffee ground emesis GLUCOSE - POINT OF CARE Routine 07/19/2024 3:34 AM SONOGRAM TECHNICIAN GLUCOSE - POINT OF CARE Routine 07/18/2024 11:33 PM SONOGRAM TECHNICIAN GLUCOSE - POINT OF CARE Routine 07/18/2024 8:01 PM SONOGRAM TECHNICIAN PATHOLOGY TISSUE Routine 07/18/2024 4:27 PM SONOGRAM TECHNICIAN Coffee ground emesis [place] EGD FLEX TRANSORAL DX 07/18/2024 4:00 PM SONOGRAM TECHNICIAN Coffee ground emesis EGD Routine 07/18/2024 3:52 PM SONOGRAM TECHNICIAN GLUCOSE - POINT OF CARE Routine 07/18/2024 12:11 PM SONOGRAM TECHNICIAN GLUCOSE - POINT OF CARE Routine 07/18/2024 11:44 AM SONOGRAM TECHNICIAN CBC W AUTO DIFFERENTIAL Routine 07/18/2024 8:07 AM SONOGRAM TECHNICIAN Coffee ground emesis PT-INR [facility] Routine 07/18/2024 8:07 AM SONOGRAM TECHNICIAN Nausea and vomiting, unspecified vomiting type VALPROIC ACID LEVEL Routine 07/18/2024 8 :07 AM SONOGRAM TECHNICIAN Nausea and vomiting, unspecified vomiting type PHOSPHORUS BLOOD AM Draw 07/18/2024 8:07 AM SONOGRAM TECHNICIAN Coffee ground emesis COMPREHENSIVE METABOLIC PANEL AM Draw 07/18/2024 8:07 AM SONOGRAM TECHNICIAN Coffee ground emesis MAGNESIUM BLOOD AM Draw 07/18/2024 8:07 AM SONOGRAM TECHNICIAN Coffee ground emesis GLUCOSE - POINT OF CARE Routine 07/18/2024 7:42 AM SONOGRAM TECHNICIAN GLUCOSE - POINT OF CARE Routine 07/18/2024 3:31 AM SONOGRAM TECHNICIAN GLUCOSE - POINT OF CARE Routine 07/17/2024 11:36 PM SONOGRAM TECHNICIAN GLUCOSE - POINT OF CARE Routine 07/17/2024 8:42 PM SONOGRAM TECHNICIAN CARDIAC EKG ORDER 07/17/2024 1:4 4 PM SONOGRAM TECHNICIAN URINE MICROSCOPIC ONLY REFLEX TO CULTURE STAT 07/17/2024 9:58 AM SONOGRAM TECHNICIAN URINALYSIS REFLEX MICROSCOPIC REFLEX CULTURE STAT 07/17/2024 9:58 AM SONOGRAM TECHNICIAN CULTURE URINE STAT 07/17/2024 9:58 AM SONOGRAM TECHNICIAN CBC W AUTO DIFFERENTIAL STAT 07/17/2024 8:31 AM SONOGRAM TECHNICIAN Coffee ground emesis TROPONIN-I HIGH SENSITIVE REFLEX 1HOUR Timed 07/17/2024 12:03 AM SONOGRAM TECHNICIAN CBC W AUTO DIFFERENTIAL STAT 07/17/2024 12:03 AM SONOGRAM TECHNICIAN SARS-COV-2 (COVID-19) FLU A/B RSV PCR RAPID STAT 07/17/2024 12:[address] ABDOMEN PELVIS W CONTRAST STAT 07/16/2024 11:41 PM SONOGRAM TECHNICIAN Nausea and vomiting, unspecified vomiting type Abdominal distention Other constipation CK BLOOD STAT 07/16/2024 10:44 PM SONOGRAM TECHNICIAN TROPONIN-I HIGH SENSITIVE BASELINE + 1HR STAT 07/16/2024 10:44 PM SONOGRAM TECHNICIAN LIPASE BLOOD STAT 07/16/2024 10:44 PM SONOGRAM TECHNICIAN LACTIC ACID BLOOD REFLEX TO REPEAT STAT 07/16/2024 10:44 PM SONOGRAM TECHNICIAN COMPREHENSIVE METABOLIC PANEL STAT 07/16/2024 10:44 PM SONOGRAM TECHNICIAN XR CHEST 1VW PORTABLE STAT 07/16/2024 10:28 PM SONOGRAM TECHNICIAN Nausea and vomiting, unspecified vomiting type HEPATITIS [...] Impression: Successful exchange of the existing 18 [place] gastrojejunostomy catheter for a new 18 [place] gastrojejunostomy catheter under fluoroscopic guidance, as [...] jelly Procedure: Exchange of the existing 18 [place] gastrojejunostomy catheter for a new 18 [place] gastrojejunostomy catheter under fluoroscopic guidance. Start time: 1435 End time: 1451 Fluoroscopic time: 4.0 minutes Contrast: 10 mL of Isovue-300 Procedure in detail: The procedure, risks, and possible complications were explained to the patient in detail, and informed consent was obtained. The patient was placed supine on the procedure table. A mds coordinator film of abdomen was obtained, which showed [...] was removed over the wire. A 4 [place] Kumpe catheter was advanced over the wire and using this combination, was advanced into the jejunum. The Kumpe catheter was then removed over the wire. A new 18 [place] gastrojejunostomy catheter was then advanced over [...] jelly Procedure: Exchange of the existing 18 [place] gastrojejunostomy catheter for a new 18 [place] gastrojejunostomy catheter under fluoroscopicguidance. Start time: 1435 End time: 1451 Fluoroscopic time: 4.0 minutes Contrast: 10 mL of Isovue-300 Procedure in detail: The procedure, risks, and possible complications were explained to the patient in detail, and informed consent was obtained. The patient was placed supine on the procedure table. A mds coordinator film of abdomen wasobtained, which showed the [...] was removed over the wire. A 4 [place] Kumpe catheter wasadvanced over the wire and using this combination, was advanced into the jejunum. The Kumpe catheter was then removed over the wire. A new 18 [place] gastrojejunostomy catheter was then advanced over [...] 18 Frenchgastrojejunostomy catheter for a new 18 [place] gastrojejunostomy catheter underfluoroscopic guidance, as described [...] > Dictated by Yessica Lovell MD, MD (executive assistant to president). I, Bebo Kuo MD have personally reviewed and interpreted this examination/study. > Interpreting Provider: Bebo Kuo MD on 08/06/2024 1:31 PM Narrative 08/06/2024 1:31 PM CDT PROCEDURE: CT ABDOMEN WO CONTRAST, DATE/TIME OF EXAM: 08/06/2024 11:01 AM, LOCATION [facility] INDICATION: R11.0: Nausea without vomiting Z93.1: [...] CONTRAST, DATE/TIME OF EXAM: 08/06/2024 11:01AM, LOCATION [facility] INDICATION: R11.0: Nausea without vomiting Z93.1: [...] > Dictated by Yessica Lovell MD, MD (executive assistant to president). Bebo Thomason MD have personally reviewed and interpreted this examination/study. > Interpreting Provider: Bebo Kuo MD on 51:31 PM us Yary James MD CT ORDERABLES Final Result * GLUCOSE - POINT OF CARE (08/06/2024 6:45 AM CDT) Only the most recent of14 resultswithin the time period is included. Glucose WB/POC 92 70 - 99 mg/dL 08/06/2024 6:46 AM CDT [facility] Specimen Type Cap Fingerstick 2024 6:46 AM CDT [facility] Blood BLOOD SPECIMEN / Unknown 08/06/2024 6:45 AM CDT 08/06/2024 6:46 AM CDT us Yary James MD LAB - POINT OF CARE ORDERABLE S Final Result [address] [address], [facility] [phone] * XR Abdomen Kub Portable (08/05/2024 6:14 AM CDT) Anatomical Region Laterality Modality Abdomen Digital Radiogra phy 08/05/2024 9:25 AM CDT Impressions 08/05/2024 5:10 PM CDT IMPRESSION: No radiographic evidence of acute intra-abdominal process. Report dictated by Sierra Lyman Dr, MD (executive assistant to president). IRamon MD have personally reviewed and interpreted this examination/study. > Interpreting Provider: Ramon Ross MD on 08/05/2024 5:10 PM Narrative 08/05/2024 5:10 PM CDT PROCEDURE: XR ABDOMEN KUB PORTABLE, DATE/TIME OF EXAM: 08/05/2024 6:14 AM, LOCATION [facility] INDICATION: R11.2: Nausea and vomiting, unspecified [...] PORTABLE, DATE/TIME OF EXAM: 08/05/2024 6:14AM, LOCATION [facility] INDICATION: R11.2: Nausea and vomiting, unspecified [...] Report dictated by Sierra Lyman Dr, MD (executive assistant to president). I, Ramon Ross MD have personally reviewed and interpreted this examination/study. > Interpreting Provider: Ramon Ross MD on 08/05/2024 5:10 PM Neha Palomino MD DIAGNOSTIC IMAGING ORDERABLE S Final Result * PT-INR [facility] (08/05/2024 1:02 AM SONOGRAM TECHNICIAN) Only the most recent of5 resultswithin the [...] Lab Venipuncture / Unknown 08/05/2024 1:02 AM SONOGRAM TECHNICIAN 08/05/2024 3:37 AM CDT us Lowell Cao DO LAB - COAGULATION ORDERABLES F inal Result [facility] [address] [place] [phone], [facility] [phone] * (ABNORMAL) CBC W/O DIFFERENTIAL (08/05/2024 1:02 AM SONOGRAM TECHNICIAN) Only the most recent of3 resultswithin the [...] Lab Venipuncture / Unknown 08/05/2024 1:02 AM SONOGRAM TECHNICIAN 08/05/2024 3:37 AM CDT us Marianne Daniels MD LAB - HEMATOLOGY ORDERABLES Lulu coley Result [facility] [address] [place] [address], [facility] [phone] * (ABNORMAL) RENAL FUNCTION PANEL (08/05/2024 1:02 AM SONOGRAM TECHNICIAN) Only the most recent of3 resultswithin the [...] Lab Venipuncture / Unknown 08/05/2024 1:02 AM SONOGRAM TECHNICIAN 08/05/2024 3:37 AM CDT Lowell Cao DO LAB - CHEMISTRY ORDERABLES Fin al Result Performing Organization Address City/[facility]/ZIP Co de Phone Number [facility] [address] [place] [address], [place] [phone] * MAGNESIUM BLOOD (08/05/2024 1:02 AM SONOGRAM TECHNICIAN) Only the most recent of5 resultswithin the time period is included. Magnesium 1.9 1.6 - 2.6 mg/dL 08/05/2024 4:02 AM CDT [facility] Blood BLOOD SPECIMEN / Unknown Lab Venipuncture / Unknown 08/05/2024 1:02 AM SONOGRAM TECHNICIAN 08/05/2024 3:37 AM CDT Lowell Johnson Cao DO LAB - CHEMISTRY ORDERABLES Fin al Result Performing Organization Address City/[facility]/ZIP Co de Phone Number [address] [address], [place] [phone] * PSA FREE + TOTAL PANEL (08/04/2024 12:12 PM SONOGRAM TECHNICIAN) PSA Total 1.7 0.0 - 4.0 ng/mL 08/04/2024 1:33 PM [facility] PSA Free 0.21 0.00 - 0.50 ng/mL 08/04/2024 1:33 PM [facility] PSA % Free 12 See Comment % 08/04/2024 1:33 PM [facility] Comment: Clinical Laboratory uses the [employer] Wall Mirror Department Supervisor method for Total and Free PSA measurements. [...] Free and/or Total PSA alone. Distribution of BILLIARD TABLE ASSEMBLER % Free PSA Values for specimens with BILLIARD TABLE ASSEMBLER Total PSA values between 4.0 and 10.0 ng/mL: % Free PSA Ranges <10.0 10.0-15.0 15.0-20.0 20.0-26.0 >26.0 Number of ----- --------- --------- --------- ----- Subjects Biopsy --------- ------ Negative 307 9.4 22.5 25.4 24.8 17.9 Positive 123 27.6 30.9 17.9 15.4 8.1 PSA % Free 08/04/2024 1:33 PM SONOGRAM TECHNICIAN [facility] Blood BLOOD SPECIMEN / Unknown Lab Venipuncture / Unknown 08/04/2024 12:12 PM SONOGRAM TECHNICIAN 08/04/2024 12:42 PM SONOGRAM TECHNICIAN Marianne Daniels MD LAB - CHEMISTRY ORDERABLES Final Result [address] [phone] [phone] * (ABNORMAL) CULTURE URINE (08/03/2024 8:53 AM SONOGRAM TECHNICIAN) Only the most recent of2 resultswithin the time period is included. Culture Urine 50,000-100,000 CFU/mL Pseudomonas aeruginosa(A) JELLY 08/07/2024 6:04 AM [facility] Comment:This is an appended report. These results have been appended to a previously final verified report. Culture Urine 50,000-100,000 CFU/mL Corynebacterium striatum(A) JELLY 08/07/2024 6:04 AM [facility] Comment:This is an appended report. These results have been appended to a previously final verified report. Culture Urine 50,000-100,000 CFU/mL Providencia stuartii(A) JELLY 08/07/2024 6:04 AM [facility] Urine URINE SPECIMEN OBTAINED BY CLEAN CATCH PROCEDURE / Unknown Collection / Unknown 08/03/2024 8:53 AM SONOGRAM TECHNICIAN 08/03/2024 8:56 AM SONOGRAM TECHNICIAN Narrative Organism Antibiotic Method Susceptibility Pseudomonas aeruginosa [...] MICROBIOLOGY ORDERABLES Ed ited Result - Final [facility] [address] [place] [address], [facility] [phone] * HEMOGLOBIN A1C (08/03/2024 5:18 AM [facility]) [facility] Hemoglobin A1c 5.3 <=5.6 % 08/03/2024 8:24 AM [facility] Estimated Average Glucose 105 mg/dL 08/03/2024 8:24 AM [facility] Comment: HbA1c Interpretation: Normal : < 5.7% Pre-diabetes: 5.7-6.4% Diabetes: Equal to or greater than 6.5% Test results diagnostic of diabetes should be repeated for confirmation. Treatment target values recommended by ADA and other clinical organizations should be used to evaluate metabolic control in patients. Reference: [place] Diabetes Association, Standards of Care in Diabetes -2020 In patients 70 years and older consider HbA1c target range of 7.0-7.5% (Reference: Lukas Matamoros et al. JAMDA. 2012) The [place] assay for the measurement of HbA1c is a National Glycohemoglobin Standardization Program (NGSP) certified method. Blood BLOOD SPECIMEN / Unknown Venipuncture / Unknown 08/03/2024 5:18 AM SONOGRAM TECHNICIAN 08/03/2024 5:24 AM SONOGRAM TECHNICIAN Lowell Cao DO LAB - CHEMISTRY ORDERABLES Fin al Result [facility] [address] [place] [address], [place] [phone] * TYPE + SCREEN PANEL (08/02/2024 9:53 PM SONOGRAM TECHNICIAN) Antibody Screen NEG 10:41 PM SONOGRAM TECHNICIAN [facility] BLOOD BANK LAB ABO Rh O POS 08/02/2024 10:41 PM SONOGRAM TECHNICIAN [facility] BLOOD BANK LAB Blood Bank BLOOD SPECIMEN / Unknown Venipuncture / Unknown 08/02/2024 9:53 PM SONOGRAM TECHNICIAN 08/02/2024 10:05 PM SONOGRAM TECHNICIAN us Elmo Johnson MD LAB - BLOOD BANK ORDERABLES F inal Result Performing Organization Address [facility]/ZIP Co de Phone Number [facility] BLOOD BANK LAB [address] [place] [address], [facility] [phone] * CT Chest Abdomen Pelvis W Cont (08/02/2024 9:42 PM SONOGRAM TECHNICIAN) Only the most recent of2 resultswithin the time period is included. Anatomical Region Laterality Modality Chest, Abdomen, Pelvis Computed Tomography 08/02/2024 9:56 PM SONOGRAM TECHNICIAN Impressions 08/02/2024 11:19 PM SONOGRAM TECHNICIAN Impression: 1.Trace left-sided pleural effusion, bilateral dependent [...] cystitis. > Dictated by Justin Burrell MD (executive assistant to president). I, Bebo Kuo MD have personally reviewed and interpreted this examination/study. > Interpreting Provider: Bebo Kuo MD on 08/02/2024 11:19 PM Narrative 08/02/2024 11:19 PM SONOGRAM TECHNICIAN PROCEDURE: CT CHEST ABDOMEN PELVIS W CONT, DATE/TIME OF EXAM: 08/02/2024 9:43 PM, LOCATION [facility] INDICATION: R11.0: Nausea without vomiting ADDITIONAL [...] DATE/TIME OF EXAM: 08/02/2024 9:43 PM, LOCATION [facility] INDICATION: R11.0: Nausea without vomiting ADDITIONAL [...] cystitis. > Dictated by Justin Burrell MD (executive assistant to president). Bebo Thomason MD have personally reviewed and interpreted this examination/study. > Interpreting Provider: Bebo Kuo MD on 511:19 PM us Elmo Johnson MD CT ORDERABLES Final Result * XR CHEST 1VW PORTABLE (08/02/2024 5:15 PM SONOGRAM TECHNICIAN) Only the most recent of4 resultswithin the time period is included. Anatomical Region Laterality Modality Chest Digital Radiogra phy 08/02/2024 5:27 PM SONOGRAM TECHNICIAN Narrative 08/03/2024 9:31 AM SONOGRAM TECHNICIAN PROCEDURE: XR CHEST 1VW PORTABLE, DATE/TIME OF EXAM: 08/02/2024 5:15 PM, LOCATION [facility] INDICATION: R11.0: Nausea without vomiting ADDITIONAL [...] abnormality. > Dictated by Meeta Leblanc MD (executive assistant to president) Ramon Thomason MD have personally reviewed and interpreted this examination/study. > Interpreting Provider: Ramon Ross MD on 08/03/2024 9:31 AM Procedure Note Ramon Ross MD - 08/03/2024 PROCEDURE: XR CHEST 1VW PORTABLE, DATE/TIME OF EXAM: 08/02/2024 5:15 PM, LOCATION [facility] INDICATION: R11.0: Nausea without vomiting ADDITIONAL [...] osseousabnormality. > Dictated by Meeta Leblanc MD (executive assistant to president) I, Ramon Ross MD have personally reviewed and interpreted this examination/study. > Interpreting Provider: Ramon Ross MD on 08/03/2024 9:31 AM Elmo Johnson MD DIAGNOSTIC IMAGING ORDERABLES Final Result * (ABNORMAL) URINALYSIS REFLEX TO MICROSCOPIC NO CULTURE (08/02/2024 5:08 PM SONOGRAM TECHNICIAN) Color UA Yellow Yellow, Straw 08/02/2024 5:46 PM [facility] Clarity UA Turbid(A) Clear 08/02/2024 5:46 PM [facility] Glucose UA Normal Normal 08/02/2024 5:46 PM [facility] Bilirubin UA Negative Negative 08/02/2024 5:46 PM [facility] Ketone UA Negative Negative 08/02/2024 5:46 PM [facility] Specific [place] UA 1.015 1.005 - 1.030 08/02/2024 5:46 PM [facility] Blood UA Negative Negative 08/02/2024 5:46 PM [facility] pH UA 7.0 5.0 - 9.0 pH 08/02/2024 5:46 PM [facility] Protein UA Trace(A) Negative 08/02/2024 5:46 PM [facility] Urobilinogen UA 3.0(A) Normal mg/dL 08/02/2024 5:46 PM [facility] Nitrite UA Positive(A) Negative 08/02/2024 5:46 PM [facility] Leukocyte UA 500 NOEL/uL(A) Negative 08/02/2024 5:46 PM [facility] RBC UA 11-20(A) 0 - 5 # /hpf 08/02/2024 5:46 PM [facility] WBC UA >100(A) 0 - 5 # /hpf 08/02/2024 5:46 PM [facility] Bacteria UA 1+(A) None Seen 08/02/2024 5:46 PM [facility] Squamous Epithelial Cells None Seen 0 - 5 /hpf 08/02/2024 5:46 PM [facility] Urine URINE SPECIMEN OBTAINED BY SINGLE CATHETERIZATION OF URINARY BLADDER / Unknown Collection / Unknown 08/02/2024 5:08 PM SONOGRAM TECHNICIAN 08/02/2024 5:11 PM SONOGRAM TECHNICIAN us Elmo Johnson MD LAB - URINALYSIS ORDERABLES F inal Result [facility] [address] [place] [address], [facility] [phone] * (ABNORMAL) CBC W AUTO DIFFERENTIAL (08/02/2024 5:08 PM SONOGRAM TECHNICIAN) Only the most recent of7 resultswithin the time period is included. WBC 8.4 4.0 - 10.7 x10E9/L 08/02/2024 5:22 PM [facility] RBC Count 4.27(L) 4.30 - 5.80 x10E12/L 08/02/2024 5:22 PM [facility] Hemoglobin 13.6 13.3 - 17.5 g/dL 08/02/2024 5:22 PM [facility] Hematocrit 41.1 38.7 - 51.1 % 08/02/2024 5:22 PM [facility] MCV 96.3 80.0 - 98.0 fL 08/02/2024 5:22 PM [facility] MCH 31.9 26.7 - 33.6 pg 08/02/2024 5:22 PM [facility] MCHC 33.1 31.7 - 36.3 g/dL 08/02/2024 5:22 PM [facility] RDW-CV 13.2 11.3 - 14.8 % 08/02/2024 5:22 PM [facility] Platelet Count 250 150 - 420 x10E9/L 08/02/2024 5:22 PM [facility] MPV 13.0(H) 7.8 - 11.4 fL 08/02/2024 5:22 PM [facility] Neutrophil % 68.1 41.0 - 74.0 % 08/02/2024 5:22 PM [facility] Lymphocyte % 22.2 17.0 - 47.0 % 08/02/2024 5:22 PM [facility] Monocyte % 6.8 3.0 - 11.0 % 08/02/2024 5:22 PM [facility] Eosinophil % 2.3 0.0 - 7.0 % 08/02/2024 5:22 PM [facility] Basophil % 0.4 0.0 - 1.6 % 08/02/2024 5:22 PM [facility] Immature Granulocytes % 0.2 0.0 - 1.0 % 08/02/2024 5:22 PM [facility] Neutrophil Absolute 5.70 1.60 - 7.50 x10E9/L 08/02/2024 5:22 PM [facility] Lymphocyte Absolute 1.86 1.00 - 4.40 x10E9/L 08/02/2024 5:22 PM [facility] Monocyte Absolute 0.57 0.15 - 1.00 x10E9/L 08/02/2024 5:22 PM [facility] Eosinophil Absolute 0.19 0.00 - 0.60 x10E9/L 08/02/2024 5:22 PM [facility] Basophil Absolute 0.03 0.00 - 0.13 x10E9/L 08/02/2024 5:22 PM [facility] Blood BLOOD SPECIMEN / Unknown Venipuncture / Unknown 08/02/2024 5:08 PM SONOGRAM TECHNICIAN 08/02/2024 5:14 PM [facility] us Elmo Johnson MD LAB - HEMATOLOGY ORDERABLES F inal Result Performing Organization Address City/State/[facility] Co de Phone Number [facility] [address] [place] [address], [facility] [phone] * (ABNORMAL) COMPREHENSIVE METABOLIC PANEL (08/02/2024 5:08 PM SONOGRAM TECHNICIAN) Only the most recent of5 resultswithin the time period is included. BUN 14 7 - 26 mg/dL 08/02/2024 5:44 PM [facility] Creatinine 0.57(L) 0.71 - 1.16 mg/dL 08/02/2024 5:44 PM [facility] Sodium 140 136 - 145 mmol/L 08/02/2024 5:44 PM [facility] Potassium 4.5 3.5 - 4.5 mmol/L 08/02/2024 5:44 PM [facility] Chloride 105 98 - 107 mmol/L 08/02/2024 5:44 PM [facility] CO2 25 22 - 29 mmol/L 08/02/2024 5:44 PM [facility] Glucose 102(H) 70 - 99 mg/dL 08/02/2024 5:44 PM [facility] Calcium 9.6 8.4 - 10.2 mg/dL 08/02/2024 5:44 PM [facility] Protein Total 7.6 6.0 - 8.3 g/dL 08/02/2024 5:44 PM [facility] Albumin 3.8 3.4 - 5.0 g/dL 08/02/2024 5:44 PM [facility] Bilirubin Total 0.4 0.2 - 1.2 mg/dL 08/02/2024 5:44 PM [facility] Alkaline Phosphatase 94 40 - 150 U/L 08/02/2024 5:44 PM [facility] ALT 14 5 - 55 U/L 08/02/2024 5:44 PM [facility] AST 25 5 - 34 U/L 08/02/2024 5:44 PM [facility] Anion Gap 10 6 - 16 08/02/2024 5:44 PM [facility] BUN/Creatinine Ratio 25(H) 7 - 23 08/02/2024 5:44 PM [facility] Osmolality Calculated 291 275 - 295 mOsm/kg 08/02/2024 5:44 PM [facility] Albumin/Globulin Ratio 1.0(L) 1.1 - 2.3 08/02/2024 5:44 PM [facility] eGFR by CKD-EPI >90 >=90 mL/min/1.7 3 m2 08/02/2024 5:44 PM [facility] Blood BLOOD SPECIMEN / Unknown Venipuncture / Unknown 08/02/2024 5:08 PM SONOGRAM TECHNICIAN 08/02/2024 5:14 PM [facility] us Elmo Johnson MD LAB - CHEMISTRY ORDERABLES Fi nal Result Performing Organization Address City/[facility]/ZIP Co de Phone Number [address] [address], [facility] [phone] * LIPASE BLOOD (08/02/2024 5:08 PM SONOGRAM TECHNICIAN) Only the most recent of4 resultswithin the time period is included. [facility] Lipase 18 8 - 78 U/L 08/02/2024 5:44 PM SONOGRAM TECHNICIAN [facility] Blood BLOOD SPECIMEN / Unknown Venipuncture / Unknown 08/02/2024 5:08 PM SONOGRAM TECHNICIAN 08/02/2024 5:14 PM SONOGRAM TECHNICIAN Narrative [facility] - 08/02/2024 5:44 PM SONOGRAM TECHNICIAN Lipase results from the [employer] Alinity analyzer may not be comparable with other methodologies. Elmo Johnson MD LAB - CHEMISTRY ORDERABLES Fi nal Result Performing Organization Address [facility] Co de Phone Number [address] [address], [facility] [phone] * TROPONIN-I HIGH SENSITIVE BASELINE + 1HR (07/27/2024 6:26 PM SONOGRAM TECHNICIAN) Only the most recent of2 resultswithin the time period is included. [facility] Troponin I High Sensitive 5 <=35 ng/L 07/27/2024 7:09 PM SONOGRAM TECHNICIAN [facility] Blood BLOOD SPECIMEN / Unknown Venipuncture / Unknown 07/27/2024 6:26 PM SONOGRAM TECHNICIAN 07/27/2024 6:37 PM SONOGRAM TECHNICIAN Serjio Vilchis MD LAB - CHEMISTRY ORDERABLES Final Result Performing Organization Address [facility]/ZIP Co de Phone Number [address] [address], [facility] [phone] * EKG 12-LEAD (07/27/2024 5:34 PM SONOGRAM TECHNICIAN) [facility] Ventricular Rate 84 BPM [facility] MUSE Atrial Rate 84 BPM [facility] MUSE P-R Interval 160 ms [facility] MUSE QRS Duration ms 76 ms [facility] Q-T Interval ms 364 ms [facility] QTC Calculation (Bezet) 430 ms [facility] Calculated P Halliday 49 degrees [facility] Calculated R Halliday -25 degrees [facility] Calculated T Halliday 56 degrees [facility] Interpretation EKG NORMAL SINUS RHYTHM SEPTAL INFARCT , AGE UNDETERMINED INFERIOR INFARCT , AGE UNDETERMINED ABNORMAL ECG WHEN COMPARED WITH ECG OF 19-FEB-2024 17:27, SEPTAL INFARCT IS NOW PRESENT INFERIOR INFARCT IS NOW PRESENT Confirmed by MD ABENA, CLEMENTE ([id number]) on 07/30/2024 2:44:30 PM [facility] MUSE 07/27/2024 5:34 PM SONOGRAM TECHNICIAN 07/30/2024 2:44 PM SONOGRAM TECHNICIAN us Serjio Vilchis MD ECG ORDERABLES Edited Result - Final [facility] * PATHOLOGY TISSUE (07/18/2024 4:27 PM SONOGRAM TECHNICIAN) Case Report Surgical Pathology Report Case: [id number] Authorizing Provider: Clifton Trinh, Collected: 07/18/2024 04:27 PM Ordering Location: [facility] ENDOSCOPY Received: 07/19/2024 10:00 AM Pathologist: Mara Pascual MD Specimen: Gastric, Gastric Antrum Biopsies 07/20/2024 3:51 PM [facility] Final Diagnosis Stomach, antrum, biopsy (A): - Superficial erosion in a background of reactive gastropathy, SEE COMMENT 07/20/2024 3:51 PM [facility] Microscopic Description and Comment The [...] true H. pylori infection. 07/20/2024 3:51 PM [facility] Clinical History The patient is a 64-year-old man with suspected upper gastrointestinal bleeding and melena. Operative procedure/findings: EGD - small esophageal diverticulum; benign-appearing intrinsic stenosis at the proximal and distal esophagus, dilated; broad irregular area of mucosa along the lesser curvature with superficial erosion, biopsied 07/20/2024 3:51 PM [facility] Gross Description The requisition and specimen(s) are identified with the patient's name, Bi Tabor. Received in formalin, specimen A , are four marie-pink tissue fragments, 0.1-0.3 cm, 0.4 x 0.3 x 0.1 cm in aggregate , submitted in toto in cassette A1. The two smallest fragments are friable and may not survive processing. IKD 07/20/2024 3:51 PM [facility] Pathologist Location at [facility] 07/20/2024 3:51 PM [facility] Disclaimer The performance characteristics of all immunohistochemical and indirect immunofluorescence stains (if any) cited in this report were determined by the Histopathology Laboratory of [facility]. Some of these tests were developed [...] the attending (teaching) pathologist. 07/20/2024 3:51 PM [facility] Embedded Images 07/20/2024 3:51 PM [facility] Biopsy, NOS GASTRIC CONTENTS SPECIMEN / Unknown 07/18/2024 4:27 PM SONOGRAM TECHNICIAN 07/19/2024 10:00 AM SONOGRAM TECHNICIAN Comment:Pre-op diagnosis: Coffee ground emesis [K92.0] Clifton Alejandra MD LAB - PATHOLOGY/CYTO LOGY ORDERABLES Final Result [facility] [address] [place] [address], [facility] [phone] * EGD (07/18/2024 3:52 PM SONOGRAM TECHNICIAN) Report Endoscopy POC Endoscopy Department Report __ [...] entire procedure. Procedure Code(s): --- Professional --- 96179, Esophagogastroduode noscopy, flexible, transoral; with biopsy, single or multiple Diagnosis Code(s): --- Professional --- K31.89, Other diseases of stomach and duodenum K92.1, Melena (includes Hematochezia) CPT copyright 2021 [employer]. All rights reserved. The codes documented in this report are preliminary and upon pre fabricator review may be revised to meet current compliance requirements. Clifotn Alejandra MD 07/18/2024 4:45:03 PM Note Initiated On: 07/18/2024 3:52 PM Number of Addenda: [id number] [place] [address] [facility] 07/18/2024 3:52 PM SONOGRAM TECHNICIAN us Aaron Delgado III, MD GI PROCEDURE ORDERABLES Edited Result - Final Performing Organization Address City/[facility]/ZIP Co de Phone Number [facility] * PHOSPHORUS BLOOD (07/18/2024 8:07 AM SONOGRAM TECHNICIAN) Phosphorus 4.2 2.8 - 5.1 mg/dL 07/18/2024 8:52 AM SONOGRAM TECHNICIAN [facility] Blood BLOOD SPECIMEN / Unknown Lab Venipuncture / Unknown 07/18/2024 8:07 AM SONOGRAM TECHNICIAN 07/18/2024 8:24 AM SONOGRAM TECHNICIAN us Marianne Daniels MD LAB - CHEMISTRY ORDERABLES Final Result Performing Organization Address [facility]/ZIP Co de Phone Number [address] [address], [place] [phone] * VALPROIC ACID LEVEL (07/18/2024 8:07 AM SONOGRAM TECHNICIAN) Valproic Acid Total 74 50 - 100 ug/mL 07/18/2024 8:41 AM SONOGRAM TECHNICIAN [facility] Blood BLOOD SPECIMEN / Unknown Lab Venipuncture / Unknown 07/18/2024 8:07 AM SONOGRAM TECHNICIAN 07/18/2024 8:19 AM SONOGRAM TECHNICIAN us Marianne Daniels MD LAB - CHEMISTRY ORDERABLES Final Result Performing Organization Address City/[facility]/ZIP Co de Phone Number [address] [address], [place] [phone] * CARDIAC EKG ORDER (07/17/2024 1:44 PM SONOGRAM TECHNICIAN) Narrative 07/17/2024 1:44 PM SONOGRAM TECHNICIAN Ordered by an unspecified provider. us Scanned Document CARDIAC SERVICES ORDERABLES Fin al Result * (ABNORMAL) URINE MICROSCOPIC ONLY REFLEX TO CULTURE (07/17/2024 9:58 AM SONOGRAM TECHNICIAN) Reflex Status Culture to follow 07/17/2024 10:42 AM [facility] WBC UA 21-50(A) None Seen, 0-5 /HPF 07/17/2024 10:42 AM [facility] Bacteria UA 1+(A) None /HPF 07/17/2024 10:42 AM [facility] Squamous Epithelial Cells UA None Seen None Seen, 0-2, 3-5 /HPF 07/17/2024 10:42 AM [facility] Urine URINE SPECIMEN OBTAINED BY CLEAN CATCH PROCEDURE / Unknown Collection / Unknown 07/17/2024 9:58 AM SONOGRAM TECHNICIAN 07/17/2024 10:02 AM [facility] Narrative [facility] - 07/17/2024 10:42 AM SONOGRAM TECHNICIAN Quan Gan MD LAB - URINALYSIS ORDERABLES Lulu coley Result Performing Organization Address [facility]/State/ZIP Co de Phone Number [facility] [address] [place] [phone], [facility] [phone] * (ABNORMAL) URINALYSIS REFLEX MICROSCOPIC REFLEX CULTURE (07/17/2024 9:58 AM SONOGRAM TECHNICIAN) Color UA Yellow Straw, Yellow 07/17/2024 10:36 AM [facility] Clarity UA Slt Cloudy(A) Clear 07/17/2024 10:36 AM [facility] Specific [place] UA 1.027 1.005 - 1.030 07/17/2024 10:36 AM [facility] pH UA 8.0 5.0 - 8.0 pH 07/17/2024 10:36 AM [facility] Protein UA 1+(A) Negative 07/17/2024 10:36 AM [facility] Glucose UA Negative Negative 07/17/2024 10:36 AM [facility] Ketone UA Negative Negative 07/17/2024 10:36 AM [facility] Bilirubin UA Negative Negative 07/17/2024 10:36 AM [facility] Blood UA Negative Negative 07/17/2024 10:36 AM [facility] Nitrite UA Positive(A) Negative 07/17/2024 10:36 AM [facility] Leukocyte Esterase 1+(A) Negative 07/17/2024 10:36 AM [facility] Urobilinogen UA 4.0(A) Negative mg/dL 07/17/2024 10:36 AM [facility] Urine URINE SPECIMEN OBTAINED BY CLEAN CATCH PROCEDURE / Unknown Collection / Unknown 07/17/2024 9:58 AM SONOGRAM TECHNICIAN 07/17/2024 10:02 AM [facility] Narrative [facility] - 07/17/2024 10:36 AM SONOGRAM TECHNICIAN Quan Gan MD LAB - URINALYSIS ORDERABLES Lulu l Result [address] [address], [place] [phone] * TROPONIN-I HIGH SENSITIVE REFLEX 1HOUR (07/17/2024 12:03 AM [facility]) Troponin I High Sensitive 7 <=35 ng/L 07/17/2024 12:48 AM [facility] Delta Troponin I HS 0 <6 ng/L 07/17/2024 12:48 AM [facility] Blood BLOOD SPECIMEN / Unknown Venipuncture / Unknown 07/17/2024 12:03 AM SONOGRAM TECHNICIAN 07/17/2024 12:11 AM SONOGRAM TECHNICIAN Quan Gan MD LAB - CHEMISTRY ORDERABLES Final Result [address] [address], [place] [phone] * SARS-COV-2 (COVID-19) FLU A/B RSV PCR RAPID (07/17/2024 12:03 AM SONOGRAM TECHNICIAN) COVID-19 PCR Not detected Not detected 07/17/19 12:51 AM [facility] Influenza A PCR Not detected Not detected 07/17/2024 12:51 AM [facility] Influenza B PCR Not detected Not detected 07/17/2024 12:51 AM [facility] RSV PCR Not detected Not detected 07/17/2024 12:51 AM [facility] Microbiology SPECIMEN FROM NASOPHARYNGEAL STRUCTURE / Unknown Collection / Unknown 07/17/2024 12:03 AM SONOGRAM TECHNICIAN 07/17/2024 12:11 AM SONOGRAM TECHNICIAN Narrative [facility] - 07/17/2024 12:51 AM SONOGRAM TECHNICIAN This nucleic acid amplification assay has [...] LAB - MICROBIOLOGY ORDERABLES Fi nal Result [facility] [address] [place] [address], [facility] [phone] * CT Abdomen Pelvis W Contrast (07/16/2024 11:41 PM SONOGRAM TECHNICIAN) Anatomical Region Laterality Modality Abdomen, Pelvis Computed Tomogra phy 07/17/2024 12:0 2 AM SONOGRAM TECHNICIAN Impressions 07/17/2024 8:29 AM SONOGRAM TECHNICIAN Impression: 1.No acute process identified in the [...] obstruction. > Dictated by Ashu Welch MD (executive assistant to president). I, Bebo Kuo MD have personally reviewed and interpreted this examination/study. > Interpreting Provider: Bebo Kuo MD on 07/17/2024 8:29 AM Narrative 07/17/2024 8:29 AM SONOGRAM TECHNICIAN PROCEDURE: CT ABDOMEN PELVIS W CONTRAST, DATE/TIME OF EXAM: 07/16/2024 11:42 PM, LOCATION [facility] INDICATION: R11.2: Nausea and vomiting, unspecified [...] DATE/TIME OF EXAM: 07/16/2024 11:42 PM, LOCATION [facility] INDICATION: R11.2: Nausea and vomiting, unspecified [...] obstruction. > Dictated by Ashu Welch MD (executive assistant to president). I, Bebo Kuo MD have personally reviewed and interpreted this examination/study. > Interpreting Provider: Bebo Kuo MD on 58:29 AM [address] ORDERABLES Final Result * LACTIC ACID BLOOD REFLEX TO REPEAT (07/16/2024 10:44 PM SONOGRAM TECHNICIAN) Lactic Acid-Stat 1.9 <=2.0 mmol/L 07/16/2024 11:19 PM SONOGRAM TECHNICIAN [facility] Blood BLOOD SPECIMEN / Unknown Venipuncture / Unknown 07/16/2024 10:44 PM SONOGRAM TECHNICIAN 07/16/2024 10:52 PM SONOGRAM TECHNICIAN Result [facility] Quan Gan MD LAB - CHEMISTRY ORDERABLES Final Result [address] [address], [place] [phone] * CK BLOOD (07/16/2024 10:44 PM SONOGRAM TECHNICIAN) [facility] CK Total 92 30 - 200 U/L 07/16/2024 11:23 PM SONOGRAM TECHNICIAN [facility] Blood BLOOD SPECIMEN / Unknown Venipuncture / Unknown 07/16/2024 10:44 PM SONOGRAM TECHNICIAN 07/16/2024 10:52 PM SONOGRAM TECHNICIAN Result [facility] Quan Gan MD LAB - CHEMISTRY ORDERABLES Final Result Performing Organization Address [facility] Co de Phone Number [address] [address], [place] [phone] * HEPATITIS C AB SCREEN RFLX NAAT QUANT (09/01/2022 2:05 AM CDT) [facility] Hepatitis C Antibody Non-react phan Non-reac tive 09/01/2022 3:09 AM CDT [facility] Comment:Hepatitis C Antibody screen indicates no serologic [...] AM CDT 09/01/2022 2:15 AM CDT Result [facility] Artemio Abarca MD LAB - CHEMISTRY ORDERABLES Fin al Result Performing Organization Address [facility]/ZIP Co de Phone Number [address] [address], [place] [phone] * HIV-1 HIV-2 ANTIBODY + HIV P24 AG PANEL (09/01/2022 2:05 AM CDT) HIV Antigen/Antibod y 1 & 2 Non-reacti ve Non-react phan 09/01/2022 3:09 AM CDT [facility] Comment:No Laboratory eviden ce of HIV infection. 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 Source: [facility]. 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 John Seipel Infection Prevention 09/18/2022 MRSA 06/11/2023 06/11/2023 Insurance [facility] [address] Advance Directives Documents on File Type Date Recorded Patient Travel Counselor Expl anation Adv Directive/Living Will/POA 07/19/2019 4:10 [...] 10:09 PM 09/09/2023 7:47 PM Care Teams Athletic Monitor Relationship Specialty Start Date End Date Dany Monsivais MD [address] [address] PCP - General Family Medicine 11/18/23 Elizabeth Sullivan, RN Wire Spring Relay Adjuster 10/14/17
--- OUTSIDE RECORDS SUMMARY | 2024-09-19 08:09 | XMS_ITS | Encounter Summary ---
Author Organization [facility] Address [address] [place] [address] Care Team Providers Care Tool And Die Repair Name Role Phone Frank Toure MD Unavailable Joyce Luevano NP Primary Care Provider Unavaila Marielena Adame MD Primary Care Provider [phone] Encounter Details Date Type Department Care Team (Late st Contact Info) Description 02/23/2022 MyChart Message Enc [facility] Family Medicine - [address] [address] Joyce Luevano, BOUCHRA Bi updated [...] 10:33 AM CDT These updated through the [employer] system. documented in this encounter Plan of Treatment Not on file documented as of this encounter Visit Diagnoses Not on filedocumented in this encounter Care Teams Tool And Die Repair Relationship Specialty Start Date End Date Joyce Luevano NP [address] [place] [address] PCP - General NURSE PRACTITIONER 01/14/20 10/26/23 Marielena Smallwood MD [address] [place] [address] PCP - General FAMILY PRACTICE 10/27/23 Frank Toure MD [address] [place] [address] [employer] Director Zone CARDIOVASCULAR DISEASE 05/30/16 documented as of this encounter
--- OUTSIDE RECORDS SUMMARY | 2024-09-19 08:09 | XMS_ITS | Encounter Summary ---
Author Organization [facility] Address [address] [place] [address] Care Team Providers Care Carbon Paste Mixer Operator Name Role Phone Frank Toure MD Unavailable Misael Maradiaga DO Primary Care Provider [phone] Joyce Luevano NP Primary Care Provider Unavaila Marielena Adame MD Primary Care Provider [phone] Encounter Details Date Type Department Care Team (Late st Contact Info) Description 12/14/2018 Hospital Follow-up Call [facility] [place] [address] Cony Adan RN Social History Tobacco Use [...] filedocumented in this encounter Care Teams Carbon Paste Mixer Operator Relationship Specialty Start Date End Date Misael Maradiaga DO [address] [place] [address] PCP - General FAMILY PRACTICE 09/28/18 01/13/20 Joyce Luevano NP [address] [place] [address] PCP - General NURSE PRACTITIONER 01/14/20 10/26/23 Marielena Smallwood MD [address] [place] [address] PCP - General FAMILY PRACTICE 10/27/23 Frank Toure MD [address] [place] [address] [employer] Grocery Clerk Stocking CARDIOVASCULAR DISEASE 05/30/16 documented as of this encounter
--- OUTSIDE RECORDS SUMMARY | 2024-09-19 08:09 | XMS_ITS | Encounter Summary ---
Author Organization [facility] Address [address] [place] [address] Care Team Providers Care Telephone Operator Chief Name Role Phone Frnak Toure MD Unavailable Joyce Luevano NP Primary Care Provider Unavaila Marielena Adame MD Primary Care Provider [phone] Encounter Details Date Type Department Care Team (Late st Contact Info) Description 07/06/2022 [employer]amt Message Enc [facility] Family Medicine - [address] [address] Joyce Lueavno, STEM LEAD FORMER Bi [place] Social History Tobacco Use Types [...] Coronavirus/COVID-19? No / Unsure 06/17/2022 10:38 AM TONGUE AND GROOVE MACHINE FEEDER documented as of this encounter Functional Status [...] 1:34 PM CST Please see note. Thanks UE AND GROOVE MACHINE FEEDER * Yonatan Rodriguez RN - 07/07/2022 8:09 AM CST Please see note. Thanks UE AND GROOVE MACHINE FEEDER documented in this encounter Plan of Treatment Not on file documented as of this encounter Visit Diagnoses Not on filedocumented in this encounter Care Teams Telephone Operator Chief Relationship Specialty Start Date End Date Joyce Luevano NP [address] [place] [address] PCP - General NURSE PRACTITIONER 01/14/20 10/26/23 Marielena Smallwood MD [address] [place] [address] PCP - General FAMILY PRACTICE 10/27/23 [place] [address] [place] [address] [employer] Electric Blanket Packer CARDIOVASCULAR DISEASE 05/30/16 documented as of this encounter
--- OUTSIDE RECORDS SUMMARY | 2024-09-19 08:09 | XMS_ITS | Clinical Summary ---
Author Organization [facility] Address [address] [place] [address] Care Team Providers Care Carton Forming Machine Operator Name Role Phone Frank Toure MD Unavailable Marielena Smallwood MD Primary Care Provider [phone] Allergies Active Allergy Reactions Criticality Noted Date Comments Clonazepam Hallucinations Medium 12/09/2021 hallucinations Medications vitamin B-1 100 MG TabIndications:Seiz ure ([facility]) Take 1 tablet (100 mg total) [...] x 7.5 MG/0.1ML Liquid Therapy PackIndications:Tara llanes ([facility]) 2 sprays by Nasal route as [...] infection. Antibiotics not indicated Osteoporosis 11/22/2018 Seizure ([facility]) 08/25/2017 Cerebrovascular accident (CV A) due to thrombosis of right posterior cerebral artery ([facility]) 02/20/2016 Assessment & Plan (11/29/2018 9:36 PM CDT): Patient has residual cognitive difficulties I think beyond with patient and her family have recognized in the past however as noted in adequate medication intake her side effects may be causing deterioration. Hypertension 07/24/2015 Hyperlipidemia 04/14/2015 Assessment & Plan (11/29/2018 9:36 PM CDT): Continue home meds and monitor Seizure ([facility]) 04/11/2015 Assessment & Plan (11/29/2018 9:39 PM CDT): History of generalized seizure disorder and being managed by a neurologist in [facility] however there is confusion from family about dosages of his medications because he is got multiple pill bottles at home. Verification of levetiracetam dose per neurologist noted Encounters Date Type Department Care Team Description 08/14/2024 MyChart Message Enc [facility] Family Medicine [address] [address] Marielena Smallwood MD Use of [...] Comments Blood Pressure 128/72 06/17/2022 10:46 AM ARCHITECTURE MANAGER Pulse 95 06/17/2022 10:46 AM ARCHITECTURE MANAGER Temperature 36.4 C (97.6 F) 06/07/2022 12:31 PM ARCHITECTURE MANAGER Respiratory Rate 18 06/17/2022 10:4 6 AM ARCHITECTURE MANAGER Oxygen Saturation 98% 06/17/2022 10: 46 AM ARCHITECTURE MANAGER Inhaled Oxygen Concentration - - Weight 59 kg (130 lb) 06/17/2022 10:46 AM ARCHITECTURE MANAGER stated - unable to weigh Height 180.3 cm (5' 11 ) 06/17/2022 10: 46 AM ARCHITECTURE MANAGER Body Mass Index 18.13 06/17/2022 10:46 AM ARCHITECTURE MANAGER Plan of Treatment Health Maintenance Due Date Last Done Comments Annual Physical 01[birth year]27/1963 Zoster Vaccines (1 of 2) 2011 Pneumococcal Vaccine: 50+ Years (2 of 2 - PCV) 02/03/2017 02/04/2016, 08/13/2015, 02/07/2015 RSV Immunization or 60+ Years (1 - Risk 60-74 years 1-dose series) 2021 COVID-19 Vaccine (4 - 2023-2 5 season) 2024 04/06/2021, 07/02/2020, 06/11/2020 PHQ-2 (Physician [place]) 05/30/2024 Colorectal Cancer Screening Colonoscopy (10 Years) [...] HEPATITIS C ANTIBODY Routine 06/23/2016 11:13 AM ARCHITECTURE MANAGER from Last 3 Months or Most Recently Relevant to Health Maintenance Results * Colonoscopy (11/22/2016 12:00 AM CDT) 11/22/2016 11/22/2016 Narrative [facility] TO EPIC CONVERSION - 11/22/2016 12:00 AM CDT Documented hx of procedure Procedure Note Jerica Tsai MD - 04/02/2018 Documented hx of procedure us Generic Neris Tsai MD GI PROCEDURE ORDERABLES Final Result Performing Organization Address City/[facility] Co de Phone Number [facility] TO EPIC CONVERSION * HEPATITIS C ANTIBODY (06/23/2016 11:13 AM ARCHITECTURE MANAGER) HEPATITIS C AB NON-REACTIVE TEST[place] [address] NR [facility] TO EPIC CONVERSION 06/23/2016 11:1 3 AM ARCHITECTURE MANAGER 06/23/2016 11:13 AM ARCHITECTURE MANAGER Narrative [facility] TO EPIC CONVERSION - 06/24/2016 6:41 PM ARCHITECTURE MANAGER Result Communication: No patient communication needed at this time Misael Maradiaga DO LABORATORY Final Result [facility] TO EPIC CONVERSION from Last 3 Months or Most Recently Relevant to Health Maintenance Insurance [employer] Advance Directives Documents on File Type Date Recorded Patient Lifeguard Expl anation Advance Directives and Living Will 10/17/2017 SADVANCE DIRECTIVES * Full Code (Latest Code Status on File) Date Activated Date Inactivated Comments 12/04/2018 1:44 PM 12/12/2018 3:19 PM * Full Code Date Activated Date Inactivated Comments 11/29/2018 6:21 PM 12/04/2018 1:38 PM Care Teams Carton Forming Machine Operator Relationship Specialty Start Date End Date Marielena Smallwood MD [address] [place] [id number] PCP - General FAMILY PRACTICE 10/27/23 Frank Toure MD [address] [place] [id number] [facility] Coordinator CARDIOVASCULAR DISEASE 05/30/16
--- OUTSIDE RECORDS SUMMARY | 2024-09-19 08:09 | XMS_ITS | Encounter Summary ---
Author Organization [facility] Address [address] [place] [address] Care Team Providers Care Black Studies Professor Name Role Phone Frank Toure MD Unavailable Joyce Luevano NP Primary Care Provider Unavaila Marielena Adame MD Primary Care Provider [phone] Encounter Details Date Type Department Care Team (Late st Contact Info) Description 02/23/2022 Adilityt Message Enc [facility] Family Medicine - [address] [address] Joyce Luevano, FLOOR COVERER APPRENTICE [employer] Social History Tobacco Use Types [...] 11:25 AM CDT Message sent through other [employer] chart message * Yonatan Rodriguez RN - 02/23/2022 10:24 AM CDT Please see note. Thanks documented in this encounter Plan of Treatment Not on file documented as of this encounter Visit Diagnoses Not on filedocumented in this encounter Care Teams Black Studies Professor Relationship Specialty Start Date End Date Joyce Luevano NP [address] [place] [address] PCP - General NURSE PRACTITIONER 01/14/20 10/26/23 Marielena Smallwood MD [address] [place] [address] PCP - General FAMILY PRACTICE 10/27/23 Frank Toure MD [address] [place] [address] Valentines Cat Wagon Operator CARDIOVASCULAR DISEASE 05/30/16 documented as of this encounter
--- OUTSIDE RECORDS SUMMARY | 2024-09-19 08:09 | XMS_ITS | Encounter Summary ---
Author Organization [facility] Address [address] [place] [address] Care Team Providers Care Denier Control Operator Name Role Phone Frank Toure MD Unavailable Kayla Porras SUPPLY TECHNICIAN Primary Care Provider [phone] Misael Maradaiga DO Primary Care Provider [phone] Joyce Luevano SUPPLY TECHNICIAN Primary Care Provider Unavaila Marielena Adame MD Primary Care Provider [phone] Encounter Details Date Type Department Care Team (Latest Contact Info) Description 02/01/2018 Abstract [facility] , Jerica Cordon [...] on filedocumented in this encounter Care Teams Denier Control Operator Relationship Specialty Start Date End Date Kayla Porras NP [address] [place] [address] PCP - General 06/25/16 09/27/18 Misael Maradiaga DO [address] [place] [address] PCP - General FAMILY PRACTICE 09/28/18 01/13/20 Joyce L[place] [address] [address] PCP - General NURSE PRACTITIONER 01/14/20 10/26/23 Marielena Smallwood MD [address] [place] [address] PCP - General FAMILY PRACTICE 10/27/23 Frank Toure MD [facility] [place] [address] [employer] Photovoltaic Electrician CARDIOVASCULAR DISEASE 05/30/16 documented as of this encounter
--- OUTSIDE RECORDS SUMMARY | 2024-09-19 08:09 | XMS_ITS | Clinical Summary ---
Author Organization [facility] Address [address] [place] [address] Care Team Providers [facility] Name Role Phone Marielena Smallwood MD Primary [...] 06/28/2024 Assessment & Plan (06/28/2024 11:42 AM INTERNATIONAL REPRESENTATIVE): Now back on full TF's sugars running mildly high. Monitor with q4 accuchecks and SSI. Hypophosphatemia 06/27/2024 Assessment & Plan (06/28/2024 11:44 AM INTERNATIONAL REPRESENTATIVE): <0.7 ? 2/2 refeeding syndrome. Started on neutraphos 2pkg QID 06/26. Still Phos<0.7 06/27. Tx with IV NaPhos 30mmoles and cont per tube replacement and monitor closely. -06/28: Phos=3.3, reduce nuetraphos to 1 PKG BID and monitor History of DVT (deep vein thrombosis) 06/26/2024 Assessment & Plan (06/26/2024 1:32 PM INTERNATIONAL REPRESENTATIVE): -On anticoagulation with Eliquis 5 mg po BID for hx of DVT -per chart review hx of Left Subclavian vein DVT diagnosed 08/01/23 H/O: GI bleed 06/25/2024 Assessment & Plan (06/26/2024 1:32 PM INTERNATIONAL REPRESENTATIVE): - recent admission at [facility] ( [...] 06/25/2024 Assessment & Plan (06/26/2024 1:36 PM INTERNATIONAL REPRESENTATIVE): Tracheostomy dependence, has a Shiley #4 cuffed. Pt followed at [facility], per notes trach in place for pulmonary toilet due to his copious secretions and ongoing aspiration of his secretions. -needing frequent suctioning -sats stable on 28% FIO2 by [facility]C -Was getting VEST at [facility] Low grade fever 06/20/2024 Assessment & Plan (06/26/2024 1:34 PM INTERNATIONAL REPRESENTATIVE): Low-grade fever and tachycardia, softer BP [...] 06/17/2024 Assessment & Plan (06/28/2024 11:43 AM INTERNATIONAL REPRESENTATIVE): -patient at admission with a G [...] tube fell off and pt had 18 Indonesian G tube placed at [facility] ED on 04/21/24 (records on care everywhere)and after that he has not tolerated well tube feedings per discussion with his sister Ms Hilliard,Adriane [phone] POA - consulted IR 06-20-24 for conversion [...] goal 06/25, adjust FWF per hydration status, housing management officer to follow up -On full TF's-osmolite 1.5. Phos repleted. Copious oral secretions 06/13/2024 Assessment & Plan (06/26/2024 1:29 PM INTERNATIONAL REPRESENTATIVE): Patient on chronic glycopyrrolate due to secretions, held at admission 2/ to potential for constipation with plan to add back when he's had a bowel movements -resume on 06-19- hold on 06-20 due to somnolence. Suction PRN - restart glycopyrrolate 1mg BID 06/26 and monitor Abdominal pain 06/12/2024 Assessment & Plan (06/26/2024 1:23 PM INTERNATIONAL REPRESENTATIVE): -p/w abdominal distention from SNF to ED on 06-12 ,reported biliary emesis per detention (approximately 300 cc) , not associated fevers or change in bowel habits. Feeding tube placed to gravity drainage in ED H&P notes regular bowel movements. CT scan on 06-12 in ED with stool in the rectum and sigmoid. Desha likely constipation contributing to the patient's abdominal [...] 06/12/2024 Assessment & Plan (06/26/2024 12:08 AM INTERNATIONAL REPRESENTATIVE): Complicated by left LE AKA. History of CVA (cerebrovascular accident) 2020 Assessment & Plan (06/26/2024 1:32 PM INTERNATIONAL REPRESENTATIVE): - hx of RT parietal CVA- hx of dementia Cont asa and statin Essential hypertension 12/11/2020 Assessment & Plan (06/26/2024 1:30 PM INTERNATIONAL REPRESENTATIVE): - on metoprolol and norvasc, held with soft BP 06-19 - resume metoprolol 06-21 -resume amlodipine 06-22 - Monitor Hyperlipidemia 12/11/2020 Assessment & Plan (06/12/2024 3:47 PM INTERNATIONAL REPRESENTATIVE): - Continue home statin Seizure 12/10/2020 Assessment & Plan (06/26/2024 1:36 PM INTERNATIONAL REPRESENTATIVE): History of seizure disorder secondary to traumatic brain injury. Currently on valproate, Vimpat, Keppra and Cobazam - Continue home medication, valproate level low at admit 48 on 06-12, 48 on 06-13, Valproic acid level 76 06-19 prior to dose, lacosamide level 1.4 on 06/12, 9.6 on 06-19 Followed by Neurology at [facility] Cognitive communication deficit 08/25/2020 Cerebrovascular accident 06/13/2019 [...] Department Care Team Description 07/09/2024 7:23 PM INTERNATIONAL REPRESENTATIVE - 07/09/2024 11:59 PM INTERNATIONAL REPRESENTATIVE Hospital Encounter AMBULANCE BILLING [address] [place] [address] Discharge Disposition: Discharge to home or self care 07/08/2024 7:52 PM INTERNATIONAL REPRESENTATIVE - 07/09/2024 7:48 AM [facility] Emergency [facility] Emergency Department [address] [place] [address] Tri Martinez MD Thomas, Jenna Marie, MD Tracheostomy complication, unspecified complication type (HCC) (Primary Dx); Balanitis Discharge Disposition: Discharge to home or self care 06/12/2024 10:26 AM INTERNATIONAL REPRESENTATIVE - 06/28/2024 5:25 PM INTERNATIONAL REPRESENTATIVE Hospital Encounter [facility] [address] [place] [address] Shakila Jung MD Choi, Cheuk Ho Jeffrey, [...] h recurrent seizures (HCC) Followed up at [facility] ([facility]) Degenerative cervical spinal stenosis Family History Medical History Relation Name Comments Coronary artery disease Father Stroke Father Hypertension Mother Relation Name Status Comments Father Mother Social History Tobacco Use Types Packs/Day Years Used Date Smoking Tobacco: Former Cigarettes Smokeless Tobacco: Current Tobacco Cessation:Counseling Given: Yes [facility] Utilities Answer Date Recorded In the [...] often do you attend chur ch or evangelical services? Never 06/18/2024 Do you belong to any clubs o r organizations such as tenriism groups, unions, fraternal or athletic groups, or [...] time in the past 12 m [facility], were you homeless or living in a prison (including now)? No 06/18/2024 Personal Safety Answer Date Recorded Have you ever been in or are you currently in a harmful physical or emotional relationship or is someone making you feel afraid or unsafe? Denies 07/08/2024 Sex and Gender Information Value Date Recorded Sex Assigned at Not on file Legal Sex Male 6:11 AM INTERNATIONAL REPRESENTATIVE Gender Identity Not on file Sexual Orientation Not on file Obstetrics History Last Filed Vital Signs Vital Sign Reading Time Taken Comments Blood Pressure 145/83 07/09/2024 6:00 AM INTERNATIONAL REPRESENTATIVE Pulse 91 07/09/2024 6:00 AM INTERNATIONAL REPRESENTATIVE Temperature 36.5 C (97.7 F) 07/09/2024 6:31 AM INTERNATIONAL REPRESENTATIVE Respiratory Rate 10 07/09/2024 6:00 AM INTERNATIONAL REPRESENTATIVE Oxygen Saturation 100% 07/09/2024 6:00 AM INTERNATIONAL REPRESENTATIVE Inhaled Oxygen Concentration - - Weight 79.8 kg (176 lb) 07/09/2024 2:16 AM INTERNATIONAL REPRESENTATIVE Height 182.9 cm (6') 07/09/2024 2:16 AM INTERNATIONAL REPRESENTATIVE Body Mass Index 23.87 07/09/2024 2:16 AM INTERNATIONAL REPRESENTATIVE Plan of Treatment Health Maintenance Due Date [...] COMMUNITY SCREENING-ISSA ELIGIBLE STAT 07/09/2024 5:32 AM INTERNATIONAL REPRESENTATIVE SEPSIS LACTATE WITH REFLEX Timed 07/09/2024 4:33 AM INTERNATIONAL REPRESENTATIVE ED PERIPHERAL LINE INSERTION Routine 07/09/2024 1:18 AM INTERNATIONAL REPRESENTATIVE SEPSIS LACTATE WITH REFLEX Timed 07/09/2024 1:15 AM INTERNATIONAL REPRESENTATIVE RPR STAT 07/09/2024 1:15 AM INTERNATIONAL REPRESENTATIVE N. GONORRHOEAE/C. TRACHOMATIS AMPLIFICATION STAT 07/09/2024 1:02 AM INTERNATIONAL REPRESENTATIVE URINALYSIS AND REFLEX TO MICROSCOPIC AND CULTURE STAT 07/09/2024 1:02 AM INTERNATIONAL REPRESENTATIVE ED PERIPHERAL LINE INSERTION Routine 07/08/2024 10:[address] CHEST ABDOMEN PELVIS W CONTRAST ED 07/08/2024 9:55 PM INTERNATIONAL REPRESENTATIVE EGFR STAT 07/08/2024 8:56 PM INTERNATIONAL REPRESENTATIVE DIFFERENTIAL AUTO STAT 07/08/2024 8:5 6 PM INTERNATIONAL REPRESENTATIVE SEPSIS LACTATE WITH REFLEX STAT 07/08/2024 8:56 PM INTERNATIONAL REPRESENTATIVE LIPASE STAT 07/08/2024 8:56 PM INTERNATIONAL REPRESENTATIVE COMPREHENSIVE METABOLIC PANEL STAT 07/08/2024 8:56 PM INTERNATIONAL REPRESENTATIVE CBC WITH AUTO DIFFERENTIAL STAT 07/08/2024 8:56 PM INTERNATIONAL REPRESENTATIVE RESPIRATORY PATHOGEN PANEL STAT 07/08/2024 8:56 PM INTERNATIONAL REPRESENTATIVE ECG 12-LEAD Routine 07/08/2024 8:28 PM INTERNATIONAL REPRESENTATIVE XR CHEST 1 VIEW ED 07/08/2024 8:18 PM INTERNATIONAL REPRESENTATIVE POCT GLUCOSE DEVICE Routine 06/28/2024 4 :24 PM INTERNATIONAL REPRESENTATIVE POCT GLUCOSE DEVICE Routine 06/28/2024 1 2:30 PM INTERNATIONAL REPRESENTATIVE POCT GLUCOSE DEVICE Routine 06/28/2024 7 :43 AM INTERNATIONAL REPRESENTATIVE POCT GLUCOSE DEVICE Routine 06/28/2024 4 :01 AM INTERNATIONAL REPRESENTATIVE POCT GLUCOSE DEVICE Routine 06/27/2024 1 1:28 PM INTERNATIONAL REPRESENTATIVE EGFR Routine 06/27/2024 9:30 PM INTERNATIONAL REPRESENTATIVE PHOSPHORUS Routine 06/27/2024 9:30 PM INTERNATIONAL REPRESENTATIVE MAGNESIUM Routine 06/27/2024 9:30 PM INTERNATIONAL REPRESENTATIVE BASIC METABOLIC PANEL Routine 06/27/2024 9:30 PM INTERNATIONAL REPRESENTATIVE POCT GLUCOSE DEVICE Routine 06/27/2024 8 :39 PM INTERNATIONAL REPRESENTATIVE POCT GLUCOSE DEVICE Routine 06/27/2024 5 :10 PM INTERNATIONAL REPRESENTATIVE POCT GLUCOSE DEVICE Routine 06/27/2024 4 :27 PM INTERNATIONAL REPRESENTATIVE POCT GLUCOSE DEVICE Routine 06/27/2024 1 :06 PM INTERNATIONAL REPRESENTATIVE POCT GLUCOSE DEVICE Routine 06/27/2024 9 :59 AM INTERNATIONAL REPRESENTATIVE EGFR Routine 06/26/2024 10:21 PM INTERNATIONAL REPRESENTATIVE DIFFERENTIAL AUTO Routine 06/26/2024 10: 21 PM INTERNATIONAL REPRESENTATIVE PHOSPHORUS Routine 06/26/2024 10:21 PM INTERNATIONAL REPRESENTATIVE MAGNESIUM Routine 06/26/2024 10:21 PM INTERNATIONAL REPRESENTATIVE CBC WITH AUTO DIFFERENTIAL Routine 06/26/2024 10:21 PM INTERNATIONAL REPRESENTATIVE BASIC METABOLIC PANEL Routine 06/26/2024 10:21 PM INTERNATIONAL REPRESENTATIVE HEPATITIS B SURFACE ANTIGEN Routine 06/26/2024 10:21 PM INTERNATIONAL REPRESENTATIVE PHOSPHORUS Routine 06/26/2024 3:21 PM INTERNATIONAL REPRESENTATIVE RPR Routine 06/26/2024 3:21 PM INTERNATIONAL REPRESENTATIVE HEPATITIS C ANTIBODY Routine 06/26/2024 3:21 PM INTERNATIONAL REPRESENTATIVE HIV 1/2 ANTIBODY PLUS P24 ANTIGEN Routine 06/26/2024 3:21 PM INTERNATIONAL REPRESENTATIVE EGFR Routine 06/26/2024 12:16 AM INTERNATIONAL REPRESENTATIVE PHOSPHORUS Routine 06/26/2024 12:16 AM INTERNATIONAL REPRESENTATIVE MAGNESIUM Routine 06/26/2024 12:16 AM INTERNATIONAL REPRESENTATIVE BASIC METABOLIC PANEL Routine 06/26/2024 12:16 AM INTERNATIONAL REPRESENTATIVE POCT GLUCOSE DEVICE Routine 06/23/2024 1 1:36 AM INTERNATIONAL REPRESENTATIVE CBC WITHOUT DIFFERENTIAL Timed 06/23/2024 9:07 AM INTERNATIONAL REPRESENTATIVE VANCOMYCIN LEVEL TROUGH Routine 06/23/2024 9:00 AM INTERNATIONAL REPRESENTATIVE EGFR Routine 06/23/2024 9:00 AM INTERNATIONAL REPRESENTATIVE MAGNESIUM Routine 06/23/2024 9:00 AM INTERNATIONAL REPRESENTATIVE PHOSPHORUS Routine 06/23/2024 9:00 AM INTERNATIONAL REPRESENTATIVE BASIC METABOLIC PANEL Routine 06/23/2024 9:00 AM INTERNATIONAL REPRESENTATIVE G TO GJ-TUBE REPLACEMENT IP Routine 06/22/2024 1:24 PM INTERNATIONAL REPRESENTATIVE C. DIFFICILE TESTING Routine 06/21/2024 11:11 AM INTERNATIONAL REPRESENTATIVE INFECTION PREVENTION VRE CULTURE Routine 06/21/2024 11:10 AM INTERNATIONAL REPRESENTATIVE VANCOMYCIN LEVEL TROUGH Timed 06/21/2024 7:16 AM INTERNATIONAL REPRESENTATIVE EGFR Routine 06/21/2024 5:03 AM INTERNATIONAL REPRESENTATIVE DIFFERENTIAL AUTO Routine 06/21/2024 5:0 3 AM INTERNATIONAL REPRESENTATIVE PHOSPHORUS Timed 06/21/2024 5:03 AM INTERNATIONAL REPRESENTATIVE MAGNESIUM Routine 06/21/2024 5:03 AM INTERNATIONAL REPRESENTATIVE COMPREHENSIVE METABOLIC PANEL Routine 06/21/2024 5:03 AM INTERNATIONAL REPRESENTATIVE CBC WITH AUTO DIFFERENTIAL Routine 06/21/2024 5:03 AM INTERNATIONAL REPRESENTATIVE HEMOGLOBIN A1C Routine 06/12/2024 3:30 PM INTERNATIONAL REPRESENTATIVE TNI WITH LIPID PANEL Routine 08/24/2017 4:57 PM CDT from Last 3 Months or Most Recently Relevant to Health Maintenance Results * POCT Rapid HIV Antibody Community Screening-Issa Eligible (07/09/2024 5:32 AM INTERNATIONAL REPRESENTATIVE) Pathologist [facility] Rapid HIV, POC Negative Negative Lot Number [id number] QC Control Line Acceptable Blood 07/09/2024 5:32 AM INTERNATIONAL REPRESENTATIVE Naa Tam MD POINT OF CARE TEST ORDER NICHOLE Final Result * Sepsis Lactate w/ Reflex (07/09/2024 4:33 AM INTERNATIONAL REPRESENTATIVE) Pathologist [facility] Sepsis Lactate 2.0 0.7 - 2.0 mmol/L Blood 07/09/2024 4:33 AM INTERNATIONAL REPRESENTATIVE 07/09/2024 4:42 AM INTERNATIONAL REPRESENTATIVE us Naa Tam MD LAB BLOOD ORDERABLES Fin al Result Performing Organization Address [facility] Co de Phone Number [facility] Department [place] [address] * ED PERIPHERAL LINE INSERTION (07/09/2024 1:18 AM INTERNATIONAL REPRESENTATIVE) Narrative Cherie Damian MD - 07/09/2024 1:18 AM INTERNATIONAL REPRESENTATIVE Atul Barba MD 07/09/2024 1:18 AM [...] Sepsis Lactate w/ Reflex (07/09/2024 1:15 AM INTERNATIONAL REPRESENTATIVE) Sepsis Lactate 2.8(H) 0.7 - 2.0 mmol/L Blood 07/09/2024 1:15 AM INTERNATIONAL REPRESENTATIVE 07/09/2024 1:46 AM INTERNATIONAL REPRESENTATIVE us Naa Tam MD LAB BLOOD ORDERABLES Fin al Result Performing Organization Address [facility] Co de Phone Number [facility] Department [place] [address] * RPR Blood (07/09/2024 1:15 AM INTERNATIONAL REPRESENTATIVE) Pathologist [facility] RPR Nonreactive Nonreactive Blood 07/09/2024 1:15 AM INTERNATIONAL REPRESENTATIVE 07/09/2024 1:40 AM INTERNATIONAL REPRESENTATIVE Naa Tam MD LAB MICROBIOLOGY - GENER AL ORDERABLES Final Result Performing Organization Address [facility] Phone Number [facility] [place] [address] * N. gonorrhoeae/C. trachomatis Amplification Urine (07/09/2024 1:02 AM INTERNATIONAL REPRESENTATIVE) [facility] C. trachomatis Not Detected Not Detected [facility] N. gonorrhoeae Not Detected Not Detected [facility] Comment: Interpretive Data This assay detects Chlamydia trachomatis and Neisseria gonorrhoeae by nucleic acid amplification testing (NAAT). This assay has been cleared by the [place] Food and Drug administration. The performance characteristics of this test have been verified by the [facility] Molecular Infectious Disease laboratory. The performance characteristics of this test have not been evaluated in individuals less than 14 years of age. Current Interpretive Data last revised 2023. Urine (None) 07/09/2024 1:02 AM INTERNATIONAL REPRESENTATIVE 07/09/2024 1:35 AM INTERNATIONAL REPRESENTATIVE Naa Tam MD LAB MICROBIOLOGY - GENER AL ORDERABLES Final Result Performing Organization Address [facility] de Phone Number [facility] [place] [address] [facility] * (ABNORMAL) Urinalysis reflex to microscopic and culture Urine, clean voided (07/09/2024 1:02 AM INTERNATIONAL REPRESENTATIVE) [facility] Color, ur Straw Yellow Clarity, ur Clear Clear [facility] Specific gravity, ur >1.042(H) 1.003 - 1.030 [facility] pH, urine 7.5 [facility] Comment: Interpretive Data U rine pH is affected by diet, medications, systemic acid-base disturbances, and renal tubular function. pH may affect urinary stone formation. For example, urine pH below 6.0 may help reduce the tendency for calcium phosphate stones and pH greater than 6.0 may reduce the tendency for uric acid stone formation. Source: [facility] Current Interpretive Data was last revised on 2017 Protein, ur ql Trace Negative [facility] Glucose, ur ql Negative Negative [facility] Ketones, ur Negative Negative [facility] Bilirubin, ur Negative Negative [facility] Blood, ur Negative Negative [facility] Urobilinogen, ur <2.0 <2.0 mg/dL [facility] Nitrite, ur Negative Negative [facility] Leukocyte esterase, ur Negative Negative [facility] UA reflex comment Reflex conditions for microscopic UA and culture not met. [facility] Urine, clean voided 07/09/2024 1:02 AM INTERNATIONAL REPRESENTATIVE 07/09/2024 1:15 AM INTERNATIONAL REPRESENTATIVE Naa Tam MD LAB MICROBIOLOGY - [facility] AL ORDERABLES Final Result [facility] Department [place] [address] * ED PERIPHERAL LINE INSERTION (07/08/2024 10:11 PM INTERNATIONAL REPRESENTATIVE) Narrative Tri Martinez MD - 07/08/2024 10:11 PM INTERNATIONAL REPRESENTATIVE Atul Barba MD 07/08/2024 10:12 PM [...] Abdomen Pelvis W Contrast (07/08/2024 9:55 PM INTERNATIONAL REPRESENTATIVE) Anatomical Region Laterality Modality Body N/A Computed Tomogra phy 07/08/2024 10:3 2 PM INTERNATIONAL REPRESENTATIVE Impressions 07/09/2024 7:23 AM INTERNATIONAL REPRESENTATIVE Liquid stool within the colon, indicative of diarrheal state. Otherwise, no acute abnormalities in the abdomen or pelvis. Dictated by: Delia Morton MD The radiology attending physician has personally reviewed this study, and had reviewed and/or edited this written report and agrees with it. Electronically signed by: Marlon Kohler M.D. Narrative 07/09/2024 7:23 AM INTERNATIONAL REPRESENTATIVE EXAMINATION: Computed tomography of the chest, [...] Sepsis Lactate w/ Reflex (07/08/2024 8:56 PM INTERNATIONAL REPRESENTATIVE) Sepsis Lactate 2.4(H) 0.7 - 2.0 mmol/L Blood 07/08/2024 8:56 PM INTERNATIONAL REPRESENTATIVE 07/08/2024 9:24 PM INTERNATIONAL REPRESENTATIVE us Naa Tam MD LAB BLOOD ORDERABLES Fin al Result [facility] Department [place] [address] * eGFR (07/08/2024 8:56 PM INTERNATIONAL REPRESENTATIVE) eGFR >90 >=60 mL/min/1. 73 m2 [...] last reviewed 2021. Blood 07/08/2024 8:56 PM INTERNATIONAL REPRESENTATIVE 07/08/2024 9:26 PM INTERNATIONAL REPRESENTATIVE us Naa Tam MD LAB BLOOD ORDERABLES Fin al Result [facility] [place] [address] * Differential, auto (07/08/2024 8:56 PM INTERNATIONAL REPRESENTATIVE) Neutrophil abs 4.4 1.5 - 6.5 K/cumm Imm gran abs 0.0 0.0 - 0.1 K/cumm [facility] Lymphocyte abs 2.6 0.8 - 3.3 K/cumm [facility] Monocyte abs 0.5 0.2 - 0.8 K/cumm [facility] Eosinophil abs 0.5 0.0 - 0.5 K/cumm [facility] Basophil abs 0.0 0.0 - 0.1 K/cumm [facility] Neutrophil pct 54.7 % [facility] Comment: Interpretive Data Percent cell count reference ranges are not reported, since discordance with absolute values may lead to misinterpretation of CBC data. Current Interpretive Data was last revised on 2017. Imm gran pct 0.2 % [facility] Comment: Interpretive Data Percent cell count reference ranges are not reported, since discordance with absolute values may lead to misinterpretation of CBC data. Current Interpretive Data was last revised on 2017. Lymphocyte pct 32.1 % [facility] Comment: Interpretive Data Percent cell count reference ranges are not reported, since discordance with absolute values may lead to misinterpretation of CBC data. Current Interpretive Data was last revised on 2017. Monocyte pct 6.6 % [facility] Comment: Interpretive Data Percent cell count reference ranges are not reported, since discordance with absolute values may lead to misinterpretation of CBC data. Current Interpretive Data was last revised on 2017. Eosinophil pct 6.0 % [facility] Comment: Interpretive Data Percent cell count reference ranges are not reported, since discordance with absolute values may lead to misinterpretation of CBC data. Current Interpretive Data was last revised on 2017. Basophil pct 0.4 % [facility] Comment: Interpretive Data Percent cell count reference ranges are not reported, since discordance with absolute values may lead to misinterpretation of CBC data. Current Interpretive Data was last revised on 2017. Blood 07/08/2024 8:56 PM INTERNATIONAL REPRESENTATIVE 07/08/2024 9:27 PM INTERNATIONAL REPRESENTATIVE Naa Tam MD LAB BLOOD ORDERABLES Fin al Result [facility] Department [place] [address] * Respiratory pathogen panel Nasopharyngeal (07/08/2024 8:56 PM INTERNATIONAL REPRESENTATIVE) Pathologist [facility] Influenza A RNA Not Detected Not Detected Influenza B RNA Not Detected Not Detected [facility] RSV RNA Not Detected Not Detected [facility] COVID-19 RNA Not Detected Not Detected [facility] Coronavirus 229E RNA Not Detected Not Detected [facility] Coronavirus HKU1 RNA Not Detected Not Detected [facility] Coronavirus NL63 RNA Not Detected Not Detected [facility] Coronavirus OC43 RNA Not Detected Not Detected [facility] Adenovirus DNA Not Detected Not Detected [facility] Metapneumovirus RNA Not Detected Not Detected [facility] Rhinovirus/Enterov irus RNA Not Detected Not Detected [facility] Parainfluenza 1 RNA Not Detected Not Detected [facility] Parainfluenza 2 RNA Not Detected Not Detected [facility] Parainfluenza 3 RNA Not Detected Not Detected [facility] Parainfluenza 4 RNA Not Detected Not Detected [facility] B. pertussis DNA Not Detected Not Detected [facility] B. parapertussis DNA Not Detected Not Detected [facility] C. pneumoniae DNA Not Detected Not Detected [facility] M. pneumoniae DNA Not Detected Not Detected [facility] Nasopharyngeal 07/08/2024 8: 56 PM INTERNATIONAL REPRESENTATIVE 07/08/2024 9:25 PM INTERNATIONAL REPRESENTATIVE Narrative [facility] - 07/08/2024 10:16 PM INTERNATIONAL REPRESENTATIVE Is the Patient experiencing symptoms consistent with COVID?->Yes Surveillance testing for transplant patient?->No Interpretive Data The AlgEvolve FilmArray Respiratory Panel (RP2.1) assay is a [...] assay has FDA clearance for testing of CRAFT DEMONSTRATOR swabs. The performance of additional specimen types has been assessed by the performing laboratory. The performance characteristics of this assay have been determined by [facility] Molecular Infectious Disease Laboratory. Current interpretive data was last revised on 22. Naa Tam MD LAB MICROBIOLOGY - [facility] ORDERABLES Final Result [facility] Department [place] [address] * (ABNORMAL) CBC with auto differential (07/08/2024 8:56 PM INTERNATIONAL REPRESENTATIVE) [facility] WBC 8.0 3.8 - 9.9 K/cumm Hgb 14.4 13.0 - 17.5 g/dL [facility] Hct 43.3 38.9 - 50.3 % [facility] Plt 236 150 - 400 K/cumm [facility] MPV 12.4(H) 9.1 - 12.3 fL [facility] [facility]ENTER RBC 4.49 4.30 - 5.80 M/cumm [facility] MCV 96.4 81.3 - 96.4 fL [facility] MCH 32.1 27.1 - 33.3 pg [facility] MCHC 33.3 32.3 - 35.7 g/dL [facility] RDW CV 13.5 11.1 - 14.9 % [facility] RDW SD 47.9 35.7 - 48.1 fL [facility] NRBC abs 0.00 0.00 - 0.01 K/cumm [facility] Blood 07/08/2024 8:56 PM INTERNATIONAL REPRESENTATIVE 07/08/2024 9:27 PM INTERNATIONAL REPRESENTATIVE us Naa Tam MD LAB BLOOD ORDERABLES Fin al Result Performing Organization Address City/[facility] Co de Phone Number [facility] Department [place] [address] * Lipase (07/08/2024 8:56 PM INTERNATIONAL REPRESENTATIVE) [facility] Lipase 32 10 - 99 Units/L Blood 07/08/2024 8:56 PM INTERNATIONAL REPRESENTATIVE 07/08/2024 9:26 PM INTERNATIONAL REPRESENTATIVE us Naa Tam MD LAB BLOOD ORDERABLES Fin al Result [facility] Department [place] [address] * (ABNORMAL) Comprehensive metabolic panel (07/08/2024 8:56 PM INTERNATIONAL REPRESENTATIVE) Sodium 141 135 - 145 mmol/L Potassium, pl 4.5 3.3 - 4.9 mmol/L [facility] Chloride 102 97 - 110 mmol/L [facility] CO2 28 22 - 32 mmol/L [facility] Anion gap 11 2 - 15 mmol/L [facility] BUN 15 6 - 25 mg/dL [facility] Creatinine 0.63(L) 0.80 - 1.30 mg/dL [facility] Glucose 110 70 - 199 mg/dL [facility] Comment: Interpretive Data Fasting glucose [...] 10.1 8.5 - 10.3 mg/dL [facility] Bilirubin, total 0.2 0.1 - 1.2 mg/dL [facility] Protein, pl 8.0 6.5 - 8.5 g/dL [facility] Albumin 4.1 3.5 - 5.0 g/dL [facility] Alk phos 110 40 - 130 Units/L [facility] ALT 28 7 - 55 Units/L [facility] AST 26 10 - 50 Units/L [facility] Blood 07/08/2024 8:56 PM INTERNATIONAL REPRESENTATIVE 07/08/2024 9:26 PM INTERNATIONAL REPRESENTATIVE us Naa Tam MD LAB BLOOD ORDERABLES Fin al Result [facility] [place] [address] * ECG 12-LEAD (07/08/2024 8:28 PM INTERNATIONAL REPRESENTATIVE) Narrative [facility] - 07/08/2024 8:28 PM INTERNATIONAL REPRESENTATIVE Naa Tam MD 07/08/2024 8:30 PM [...] Tam MD ECG ORDERABLES Final Re sult [facility] * XR Chest 1 View (07/08/2024 8:18 PM INTERNATIONAL REPRESENTATIVE) Anatomical Region Laterality Modality Body, Chest N/A Computed Radiogr aphy 07/08/2024 8:28 PM INTERNATIONAL REPRESENTATIVE Impressions 07/08/2024 9:56 PM INTERNATIONAL REPRESENTATIVE Comparison is made to chest graft [...] Sekou Wolf M.D. Narrative 07/08/2024 9:56 PM INTERNATIONAL REPRESENTATIVE EXAMINATION: 1 view chest radiograph Procedure [...] Result * POCT glucose (06/28/2024 4:24 PM INTERNATIONAL REPRESENTATIVE) Glucose, POC 191 70 - 199 mg/dL Blood 06/28/2024 4:24 PM INTERNATIONAL REPRESENTATIVE 06/28/2024 4:24 PM INTERNATIONAL REPRESENTATIVE us Kami Dupont MD LAB POCT ORDERABLES - DEV ICE Final Result Performing Organization Address [facility]/ZIP Co de Phone Number [facility] [place] [address] * POCT glucose (06/28/2024 12:30 PM INTERNATIONAL REPRESENTATIVE) Glucose, POC 197 70 - 199 mg/dL Blood 06/28/2024 12:3 0 PM INTERNATIONAL REPRESENTATIVE 06/28/2024 12:30 PM INTERNATIONAL REPRESENTATIVE us Kami Dupont MD LAB POCT ORDERABLES - DEV ICE Final Result [facility] [place] [address] * POCT glucose (06/28/2024 7:43 AM INTERNATIONAL REPRESENTATIVE) Glucose, POC 191 70 - 199 mg/dL Blood 06/28/2024 7:43 AM INTERNATIONAL REPRESENTATIVE 06/28/2024 7:43 AM INTERNATIONAL REPRESENTATIVE Kami Dupont MD LAB POCT ORDERABLES - DEV ICE Final Result Performing Organization Address [facility] de Phone Number [facility] [place] [address] * POCT glucose (06/28/2024 4:01 AM INTERNATIONAL REPRESENTATIVE) Glucose, POC 173 70 - 199 mg/dL Blood 06/28/2024 4:01 AM INTERNATIONAL REPRESENTATIVE 06/28/2024 4:01 AM INTERNATIONAL REPRESENTATIVE Kami Dupont MD LAB POCT ORDERABLES - DEV ICE Final Result Performing Organization Address [facility] de Phone Number [facility] [place] [address] * (ABNORMAL) POCT glucose (06/27/2024 11:28 PM INTERNATIONAL REPRESENTATIVE) Glucose, POC 220(H) 70 - 199 mg/dL Comment:Use Protocol Glucose comment 1 Use Protocol [facility] Blood 06/27/2024 11:2 8 PM INTERNATIONAL REPRESENTATIVE 06/27/2024 11:28 PM INTERNATIONAL REPRESENTATIVE Kami Dupont MD LAB POCT ORDERABLES - DEV ICE Final Result Performing Organization Address [facility] de Phone Number [facility] [place] [address] * eGFR (06/27/2024 9:30 PM INTERNATIONAL REPRESENTATIVE) eGFR >90 >=60 mL/min/1. 73 m2 [...] last reviewed 2021. Blood 06/27/2024 9:30 PM INTERNATIONAL REPRESENTATIVE 06/27/2024 9:45 PM INTERNATIONAL REPRESENTATIVE Kami Dupont MD LAB BLOOD ORDERABLES Lulu l Result Performing Organization Address City/[facility] Co de Phone Number [facility] Department [place] [address] * Phosphorus (06/27/2024 9:30 PM INTERNATIONAL REPRESENTATIVE) Phosphorus, pl 3.3 2.3 - 4.5 mg/dL Comment:Repeated and Verifie d Blood 06/27/2024 9:30 PM INTERNATIONAL REPRESENTATIVE 06/27/2024 9:45 PM INTERNATIONAL REPRESENTATIVE Kami Dupont MD LAB BLOOD ORDERABLES Lulu l Result [facility] [place] [address] * Magnesium (06/27/2024 9:30 PM INTERNATIONAL REPRESENTATIVE) Magnesium 1.9 1.4 - 2.5 mg/dL Blood 06/27/2024 9:30 PM INTERNATIONAL REPRESENTATIVE 06/27/2024 9:45 PM INTERNATIONAL REPRESENTATIVE Kami Dupont MD LAB BLOOD ORDERABLES Lulu l Result [facility] [place] [address] * (ABNORMAL) Basic metabolic panel (06/27/2024 9:30 PM INTERNATIONAL REPRESENTATIVE) Sodium 141 135 - 145 mmol/L Potassium, pl 4.4 3.3 - 4.9 mmol/L [facility] Chloride 105 97 - 110 mmol/L [facility] CO2 28 22 - 32 mmol/L [facility] Anion gap 8 2 - 15 mmol/L [facility] BUN 9 6 - 25 mg/dL [facility] Creatinine 0.47(L) 0.80 - 1.30 mg/dL [facility] Glucose 208(H) 70 - 199 mg/dL [facility] Comment: Interpretive Data Fasting glucose [...] 8.9 8.5 - 10.3 mg/dL [facility] Blood 06/27/2024 9:30 PM INTERNATIONAL REPRESENTATIVE 06/27/2024 9:45 PM INTERNATIONAL REPRESENTATIVE Kami Dupnot MD LAB BLOOD ORDERABLES Lulu l Result Performing Organization Address City/[facility]/ZIP Co de Phone Number [facility] Department [place] [address] * POCT glucose (06/27/2024 8:39 PM INTERNATIONAL REPRESENTATIVE) Glucose, POC 195 70 - 199 mg/dL Blood 06/27/2024 8:39 PM INTERNATIONAL REPRESENTATIVE 06/27/2024 8:39 PM INTERNATIONAL REPRESENTATIVE us Kami Dupont MD LAB POCT ORDERABLES - DEV ICE Final Result Performing Organization Address [facility] de Phone Number [facility] [place] [address] * POCT glucose (06/27/2024 5:10 PM INTERNATIONAL REPRESENTATIVE) Glucose, POC 194 70 - 199 mg/dL Blood 06/27/2024 5:10 PM INTERNATIONAL REPRESENTATIVE 06/27/2024 5:10 PM INTERNATIONAL REPRESENTATIVE Kami Dupont MD LAB POCT ORDERABLES - DEV ICE Final Result Performing Organization Address [facility] de Phone Number [facility] [place] [address] * (ABNORMAL) POCT glucose (06/27/2024 4:27 PM INTERNATIONAL REPRESENTATIVE) Glucose, POC 224(H) 70 - 199 mg/dL Blood 06/27/2024 4:27 PM INTERNATIONAL REPRESENTATIVE 06/27/2024 4:27 PM INTERNATIONAL REPRESENTATIVE Kmai Dupont MD LAB POCT ORDERABLES - DEV ICE Final Result Performing Organization Address [facility] de Phone Number [facility] [place] [address] * POCT glucose (06/27/2024 1:06 PM INTERNATIONAL REPRESENTATIVE) Glucose, POC 173 70 - 199 mg/dL Blood 06/27/2024 1:06 PM INTERNATIONAL REPRESENTATIVE 06/27/2024 1:06 PM INTERNATIONAL REPRESENTATIVE us Kami Dupont MD LAB POCT ORDERABLES - DEV ICE Final Result Performing Organization Address [facility] Co de Phone Number [facility] Department [place] [address] * POCT glucose (06/27/2024 9:59 AM INTERNATIONAL REPRESENTATIVE) Glucose, POC 158 70 - 199 mg/dL Blood 06/27/2024 9:59 AM INTERNATIONAL REPRESENTATIVE 06/27/2024 9:59 AM INTERNATIONAL REPRESENTATIVE us Kami Dupont MD LAB POCT ORDERABLES - DEV ICE Final Result Performing Organization Address [facility] de Phone Number [facility] [place] [address] * eGFR (06/26/2024 10:21 PM INTERNATIONAL REPRESENTATIVE) eGFR >90 >=60 mL/min/1. 73 m2 [...] reviewed 2021. Blood 06/26/2024 10:2 1 PM INTERNATIONAL REPRESENTATIVE 06/26/2024 10:53 PM INTERNATIONAL REPRESENTATIVE us Kami Dupont MD LAB BLOOD ORDERABLES Lulu l Result Performing Organization Address [facility]/State/ZIP Co de Phone Number [facility] Department [place] [address] * Differential, auto (06/26/2024 10:21 PM INTERNATIONAL REPRESENTATIVE) Neutrophil abs 5.0 1.5 - 6.5 K/cumm Imm gran abs 0.0 0.0 - 0.1 K/cumm [facility] Lymphocyte abs 2.4 0.8 - 3.3 K/cumm [facility] Monocyte abs 0.8 0.2 - 0.8 K/cumm [facility] Eosinophil abs 0.4 0.0 - 0.5 K/cumm [facility] Basophil abs 0.0 0.0 - 0.1 K/cumm [facility] Neutrophil pct 58.2 % [facility] Comment: Interpretive Data Percent cell count reference ranges are not reported, since discordance with absolute values may lead to misinterpretation of CBC data. Current Interpretive Data was last revised on 2017. Imm gran pct 0.3 % [facility] Comment: Interpretive Data Percent cell count reference ranges are not reported, since discordance with absolute values may lead to misinterpretation of CBC data. Current Interpretive Data was last revised on 2017. Lymphocyte pct 27.9 % [facility] Comment: Interpretive Data Percent cell count reference ranges are not reported, since discordance with absolute values may lead to misinterpretation of CBC data. Current Interpretive Data was last revised on 2017. Monocyte pct 9.2 % [facility] Comment: Interpretive Data Percent cell count reference ranges are not reported, since discordance with absolute values may lead to misinterpretation of CBC data. Current Interpretive Data was last revised on 2017. Eosinophil pct 4.1 % [facility] Comment: Interpretive Data Percent cell count reference ranges are not reported, since discordance with absolute values may lead to misinterpretation of CBC data. Current Interpretive Data was last revised on 2017. Basophil pct 0.3 % [facility] Comment: Interpretive Data Percent cell count reference ranges are not reported, since discordance with absolute values may lead to misinterpretation of CBC data. Current Interpretive Data was last revised on 2017. Blood 06/26/2024 10:2 1 PM INTERNATIONAL REPRESENTATIVE 06/26/2024 10:53 PM INTERNATIONAL REPRESENTATIVE Kami Dupotn MD LAB BLOOD ORDERABLES Lulu brijesh Result Performing Organization Address [facility]/ZIP Co de Phone Number [facility] Department [place] [address] * (ABNORMAL) CBC with auto differential (06/26/2024 10:21 PM INTERNATIONAL REPRESENTATIVE) [facility] WBC 8.6 3.8 - 9.9 K/cumm Hgb 13.1 13.0 - 17.5 g/dL [facility] Hct 39.1 38.9 - 50.3 % [facility] Plt 173 150 - 400 K/cumm [facility] MPV 13.1(H) 9.1 - 12.3 fL [facility] RBC 4.07(L) 4.30 - 5.80 M/cumm [facility] MCV 96.1 81.3 - 96.4 fL [facility] MCH 32.2 27.1 - 33.3 pg [facility] MCHC 33.5 32.3 - 35.7 g/dL [facility] RDW CV 13.5 11.1 - 14.9 % [facility] RDW SD 47.8 35.7 - 48.1 fL [facility] NRBC abs 0.00 0.00 - 0.01 K/cumm [facility] Blood 06/26/2024 10:2 1 PM INTERNATIONAL REPRESENTATIVE 06/26/2024 10:53 PM INTERNATIONAL REPRESENTATIVE Kami Dupont MD LAB BLOOD ORDERABLES Lulu coley Result Performing Organization Address City/[facility]/ZIP Co de Phone Number [facility] Department [place] [address] * Hepatitis B Surface Antigen Blood (06/26/2024 10:21 PM INTERNATIONAL REPRESENTATIVE) Pathologist [facility] HepBsAg Nonreactive Nonreactive Blood 06/26/2024 10:2 1 PM INTERNATIONAL REPRESENTATIVE 06/26/2024 10:53 PM INTERNATIONAL REPRESENTATIVE Kami Dupont MD LAB MICROBIOLOGY - GENERA L ORDERABLES Final Result Performing Organization Address [facility] Co de Phone Number [facility] [place] [address] * (ABNORMAL) Phosphorus (06/26/2024 10:21 PM INTERNATIONAL REPRESENTATIVE) [facility] Phosphorus, pl <0.7(L) 2.3 - 4.5 mg/dL Comment:Repeated and Verifie d Blood 06/26/2024 10:2 1 PM INTERNATIONAL REPRESENTATIVE 06/26/2024 10:53 PM INTERNATIONAL REPRESENTATIVE Kami Dupont MD LAB BLOOD ORDERABLES Lulu l Result Performing Organization Address [facility] Co de Phone Number [facility] Department [place] [address] * Magnesium (06/26/2024 10:21 PM INTERNATIONAL REPRESENTATIVE) [facility] Magnesium 2.0 1.4 - 2.5 mg/dL Blood 06/26/2024 10:2 1 PM INTERNATIONAL REPRESENTATIVE 06/26/2024 10:53 PM INTERNATIONAL REPRESENTATIVE Kami Dupont MD LAB BLOOD ORDERABLES Lulu l Result Performing Organization Address [facility] Co de Phone Number [facility] [place] [address] * (ABNORMAL) Basic metabolic panel (06/26/2024 10:21 PM INTERNATIONAL REPRESENTATIVE) [facility] Sodium 141 135 - 145 mmol/L Potassium, pl 4.7 3.3 - 4.9 mmol/L [facility] Chloride 106 97 - 110 mmol/L [facility] CO2 28 22 - 32 mmol/L [facility] Anion gap 7 2 - 15 mmol/L [facility] BUN 11 6 - 25 mg/dL [facility] Creatinine 0.47(L) 0.80 - 1.30 mg/dL [facility] Glucose 213(H) 70 - 199 mg/dL [facility] Comment: Interpretive Data Fasting glucose [...] 9.3 8.5 - 10.3 mg/dL [facility] Blood 06/26/2024 10:2 1 PM INTERNATIONAL REPRESENTATIVE 06/26/2024 10:53 PM INTERNATIONAL REPRESENTATIVE Kami Dupont MD LAB BLOOD ORDERABLES Lulu l Result [facility] Department [place] [address] * HIV 1/2 Antibody plus p24 Antigen Blood (06/26/2024 3:21 PM INTERNATIONAL REPRESENTATIVE) HIV 1/2 ab + p24 ag Nonreactive Nonreactive Comment:Nonreactive for HIV- 1 antigen and HIV-1/HIV-2 antibodies. No laboratory evidence of HIV infection. If acute HIV infection is suspected, consider testing for HIV-1 RNA. Current interpretive data was last revised on 22. Blood 06/26/2024 3:21 PM INTERNATIONAL REPRESENTATIVE 06/26/2024 3:41 PM INTERNATIONAL REPRESENTATIVE Kami Dupont MD LAB MICROBIOLOGY - GENERA L ORDERABLES Final Result [facility] [place] [address] * Hepatitis C antibody Blood (06/26/2024 3:21 PM INTERNATIONAL REPRESENTATIVE) Pathologist [facility] Hep C Ab Nonreactive Nonreactive Comment:Antibodies to HCV no t detected. Does NOT exclude the possibility of recent exposure to HCV. Current interpretive data was last revised on 22 Blood 06/26/2024 3:21 PM INTERNATIONAL REPRESENTATIVE 06/26/2024 3:41 PM INTERNATIONAL REPRESENTATIVE Kami Dupont MD LAB MICROBIOLOGY - GENERA L ORDERABLES Final Result Performing Organization Address City/[facility]/[place] [address] * RPR Blood (06/26/2024 3:21 PM INTERNATIONAL REPRESENTATIVE) Pathologist [facility] RPR Nonreactive Nonreactive Blood 06/26/2024 3:21 PM INTERNATIONAL REPRESENTATIVE 06/26/2024 3:41 PM INTERNATIONAL REPRESENTATIVE Kami Dupont MD LAB MICROBIOLOGY - GENERA L ORDERABLES Final Result Performing Organization Address [facility] [place] [address] * (ABNORMAL) Phosphorus (06/26/2024 3:21 PM INTERNATIONAL REPRESENTATIVE) Pathologist [facility] Phosphorus, pl 0.7(L) 2.3 - 4.5 mg/dL Comment:Repeated and Verifie d Blood 06/26/2024 3:21 PM INTERNATIONAL REPRESENTATIVE 06/26/2024 3:41 PM INTERNATIONAL REPRESENTATIVE Kami Dupont MD LAB BLOOD ORDERABLES Lulu l Result Performing Organization Address City/[facility] Co de Phone Number [facility] [place] [address] * eGFR (06/26/2024 12:16 AM INTERNATIONAL REPRESENTATIVE) eGFR >90 >=60 mL/min/1. 73 m2 [...] reviewed 2021. Blood 06/26/2024 12:1 6 AM INTERNATIONAL REPRESENTATIVE 06/26/2024 12:39 AM INTERNATIONAL REPRESENTATIVE Patricia Bryant MD LAB BLOOD ORDERABLES Final Res ult Performing Organization Address City/[facility]/ZIP Co de Phone Number [facility] [place] [address] * (ABNORMAL) Phosphorus (06/26/2024 12:16 AM INTERNATIONAL REPRESENTATIVE) Phosphorus, pl <0.7(L) 2.3 - 4.5 mg/dL Comment:Repeated and Verifie d Blood 06/26/2024 12:1 6 AM INTERNATIONAL REPRESENTATIVE 06/26/2024 12:39 AM INTERNATIONAL REPRESENTATIVE Patricia Bryant MD LAB BLOOD ORDERABLES Final Res ult [facility] Department [place] [address] * Magnesium (06/26/2024 12:16 AM INTERNATIONAL REPRESENTATIVE) Magnesium 1.9 1.4 - 2.5 mg/dL Blood 06/26/2024 12:1 6 AM INTERNATIONAL REPRESENTATIVE 06/26/2024 12:39 AM INTERNATIONAL REPRESENTATIVE Patricia Bryant MD LAB BLOOD ORDERABLES Final Res ult [facility] [place] [address] * (ABNORMAL) Basic metabolic panel (06/26/2024 12:16 AM INTERNATIONAL REPRESENTATIVE) Pathologist [facility] Sodium 142 135 - 145 mmol/L Potassium, pl 4.4 3.3 - 4.9 mmol/L [facility] Comment:Hemolyzed; Potassium value may be falsely elevated by as much as 0.3-0.5 mmol/L. Suggest redraw and reanalysis. Chloride 109 97 - 110 mmol/L [facility] CO2 29 22 - 32 mmol/L [facility] Anion gap 4 2 - 15 mmol/L [facility] BUN 13 6 - 25 mg/dL [facility] Creatinine 0.53(L) 0.80 - 1.30 mg/dL [facility] Glucose 177 70 - 199 mg/dL [facility] Comment: Interpretive Data Fasting glucose [...] 9.0 8.5 - 10.3 mg/dL [facility] Blood 06/26/2024 12:1 6 AM INTERNATIONAL REPRESENTATIVE 06/26/2024 12:39 AM INTERNATIONAL REPRESENTATIVE Patricia Bryant MD LAB BLOOD ORDERABLES Final Res ult [facility] Department [place] [address] * POCT glucose (06/23/2024 11:36 AM INTERNATIONAL REPRESENTATIVE) [facility] Glucose, POC 95 70 - 199 mg/dL Blood 06/23/2024 11:3 6 AM INTERNATIONAL REPRESENTATIVE 06/23/2024 11:36 AM INTERNATIONAL REPRESENTATIVE Patricia Bryant MD LAB POCT ORDERABLES - DEVICE F inal Result Performing Organization Address [facility] de Phone Number [facility] Department [place] [address] * (ABNORMAL) CBC without differential (06/23/2024 9:07 AM INTERNATIONAL REPRESENTATIVE) [facility] WBC 4.7 3.8 - 9.9 K/cumm Hgb 12.5(L) 13.0 - 17.5 g/dL [facility] Hct 37.4(L) 38.9 - 50.3 % [facility] Plt 145(L) 150 - 400 K/cumm [facility] MPV 12.6(H) 9.1 - 12.3 fL [facility] RBC 3.94(L) 4.30 - 5.80 M/cumm [facility] MCV 94.9 81.3 - 96.4 fL [facility] MCH 31.7 27.1 - 33.3 pg [facility] MCHC 33.4 32.3 - 35.7 g/dL [facility] RDW CV 12.9 11.1 - 14.9 % [facility] RDW SD 45.1 35.7 - 48.1 fL [facility] NRBC abs 0.00 0.00 - 0.01 K/cumm [facility] Blood 06/23/2024 9:07 AM INTERNATIONAL REPRESENTATIVE 06/23/2024 9:28 AM INTERNATIONAL REPRESENTATIVE Result [facility] Patricia Bryant MD LAB BLOOD ORDERABLES Final Res ult Performing Organization Address [facility] Co de Phone Number [facility] Department [place] [address] * eGFR (06/23/2024 9:00 AM INTERNATIONAL REPRESENTATIVE) eGFR >90 >=60 mL/min/1. 73 m2 [...] last reviewed 2021. Blood 06/23/2024 9:00 AM INTERNATIONAL REPRESENTATIVE 06/23/2024 10:59 AM INTERNATIONAL REPRESENTATIVE Patricia Bryant MD LAB BLOOD ORDERABLES Final Res ult Performing Organization Address City/[facility] Co de Phone Number [facility] [place] [address] * Phosphorus (06/23/2024 9:00 AM INTERNATIONAL REPRESENTATIVE) Phosphorus, pl 2.3 2.3 - 4.5 mg/dL Blood 06/23/2024 9:00 AM INTERNATIONAL REPRESENTATIVE 06/23/2024 10:59 AM INTERNATIONAL REPRESENTATIVE Result [facility] Patricia Bryant MD LAB BLOOD ORDERABLES Final Res ult Performing Organization Address [facility] [place] [address] * Magnesium (06/23/2024 9:00 AM INTERNATIONAL REPRESENTATIVE) [facility] Magnesium 1.7 1.4 - 2.5 mg/dL Blood 06/23/2024 9:00 AM INTERNATIONAL REPRESENTATIVE 06/23/2024 10:59 AM INTERNATIONAL REPRESENTATIVE Patricia Bryant MD LAB BLOOD ORDERABLES Final Res ult Performing Organization Address [facility] de Phone Number [facility] [place] [address] * Vancomycin level trough (06/23/2024 9:00 AM INTERNATIONAL REPRESENTATIVE) [facility] Vancomycin trough 15.2 10.0 - 20.0 mcg/mL Blood 06/23/2024 9:00 AM INTERNATIONAL REPRESENTATIVE 06/23/2024 10:59 AM INTERNATIONAL REPRESENTATIVE Result [facility] Patricia Bryant MD LAB BLOOD ORDERABLES Final Res ult Performing Organization Address [facility] de Phone Number [facility] [place] [address] * (ABNORMAL) Basic metabolic panel (06/23/2024 9:00 AM INTERNATIONAL REPRESENTATIVE) [facility] Sodium 143 135 - 145 mmol/L Potassium, pl 3.7 3.3 - 4.9 mmol/L [facility] Chloride 108 97 - 110 mmol/L [facility] CO2 28 22 - 32 mmol/L [facility] Anion gap 7 2 - 15 mmol/L [facility] BUN 3(L) 6 - 25 mg/dL [facility] Creatinine 0.50(L) 0.80 - 1.30 mg/dL [facility] Glucose 271(H) 70 - 199 mg/dL [facility] Comment: Interpretive Data Fasting glucose [...] 2022. Calcium 9.0 8.5 - 10.3 mg/dL [facility] Blood 06/23/2024 9:00 AM INTERNATIONAL REPRESENTATIVE 06/23/2024 10:59 AM INTERNATIONAL REPRESENTATIVE us Patricia Bryant MD LAB BLOOD ORDERABLES Final Res ult [facility] [place] [address] * IR G To GJ-Tube Replacement (06/22/2024 1:24 PM INTERNATIONAL REPRESENTATIVE) Anatomical Region Laterality Modality Body N/A X-Ray Angiograph y 06/22/2024 1:47 PM INTERNATIONAL REPRESENTATIVE Impressions 06/22/2024 4:13 PM INTERNATIONAL REPRESENTATIVE Successful percutaneous 18 Fr 45 cm [...] Sean Hillman M.D. Narrative 06/22/2024 4:13 PM INTERNATIONAL REPRESENTATIVE EXAMINATION: GASTROJEJUNOSTOMY TUBE EXCHANGE HISTORY/INDICATION: 64 [...] procedure. TECHNIQUE: Prior to beginning the procedure, [place] Protocol was performed to confirm the patient's [...] placed in the proximal jejunum. A 18 Indonesian, 45 cm long JELLY single/double lumen gastrojejunostomy [...] procedure. TECHNIQUE: Prior to beginning the procedure, [place] Protocol was performed to confirm the patient's [...] placed in the proximal jejunum. A 18 Indonesian, 45 cm long JELLY single/double lumen gastrojejunostomy [...] by: Sean Hillman M.D. Patricia Bryant MD IMG IR PROCEDURES Final Result * C. difficile testing Stool (06/21/2024 11:11 AM INTERNATIONAL REPRESENTATIVE) [facility] Result Negative Negative Toxin Result Negative Negative [facility] C. diff result Negative, free toxin Negative, free toxin [facility] C. diff interp Negative for toxigenic Clostridioides (Clostridium) difficile. Analysis was performed using a glutamate dehydrogenase antigen detection assay combined with a C. difficile toxin detection assay. [facility] Stool 06/21/2024 11:1 1 AM INTERNATIONAL REPRESENTATIVE 06/21/2024 12:55 PM INTERNATIONAL REPRESENTATIVE Narrative [facility] - 06/21/2024 2:38 PM INTERNATIONAL REPRESENTATIVE Testing for C. difficile is not recommended within 4 days of a negative result, 10 days of a positive, or 24 hours after laxative administration. If this order is clinically indicated, contact the lab and enter the passcode to complete this order.->[id number] Patricia Bryant MD LAB MICROBIOLOGY - GENERAL ORD ERABLES Final Result [facility] Department [place] [address] * Infection Prevention VRE Culture Stool (06/21/2024 11:10 AM INTERNATIONAL REPRESENTATIVE) Pathologist [facility] Report Final Report: Negative Stool 06/21/2024 11:1 0 AM INTERNATIONAL REPRESENTATIVE 06/21/2024 2:41 PM INTERNATIONAL REPRESENTATIVE Narrative [facility] - 06/23/2024 11:15 PM INTERNATIONAL REPRESENTATIVE Surveillance culture for Infection Prevention purposes only; results indicate colonization, not infection requiring treatment. Testing performed by [facility] ([phone]). Patricia Bryant MD LAB MICROBIOLOGY - GENERAL ORD ERABLES Final Result Performing Organization Address [facility] [place] [address] * Vancomycin level trough Draw trough 30 minutes prior to 4th dose. (06/21/2024 7:16 AM INTERNATIONAL REPRESENTATIVE) [facility] Vancomycin trough 16.8 10.0 - 20.0 mcg/mL Blood 06/21/2024 7:16 AM INTERNATIONAL REPRESENTATIVE 06/21/2024 7:27 AM INTERNATIONAL REPRESENTATIVE Narrative [facility] - 06/21/2024 8:10 AM INTERNATIONAL REPRESENTATIVE Draw trough 30 minutes prior to 4th dose. Patricia Bryant MD LAB BLOOD ORDERABLES Final Res ult Performing Organization Address City/[facility]/ZIP Co de Phone Number [facility] Department [place] [address] * eGFR (06/21/2024 5:03 AM INTERNATIONAL REPRESENTATIVE) Pathologist [facility] eGFR >90 >=60 mL/min/1. [...] last reviewed 2021. Blood 06/21/2024 5:03 AM INTERNATIONAL REPRESENTATIVE 06/21/2024 5:14 AM INTERNATIONAL REPRESENTATIVE us Patricia Bryant MD LAB BLOOD ORDERABLES Final Res ult [facility] [place] [address] * Differential, auto (06/21/2024 5:03 AM INTERNATIONAL REPRESENTATIVE) Neutrophil abs 1.7 1.5 - 6.5 K/cumm Imm gran abs 0.0 0.0 - 0.1 K/cumm [facility] Lymphocyte abs 1.7 0.8 - 3.3 K/cumm [facility] Monocyte abs 0.6 0.2 - 0.8 K/cumm [facility] Eosinophil abs 0.3 0.0 - 0.5 K/cumm [facility] Basophil abs 0.0 0.0 - 0.1 K/cumm [facility] Neutrophil pct 38.8 % [facility] Comment: Interpretive Data Percent cell count reference ranges are not reported, since discordance with absolute values may lead to misinterpretation of CBC data. Current Interpretive Data was last revised on 2017. Imm gran pct 0.2 % [facility] Comment: Interpretive Data Percent cell count reference ranges are not reported, since discordance with absolute values may lead to misinterpretation of CBC data. Current Interpretive Data was last revised on 2017. Lymphocyte pct 40.5 % [facility] Comment: Interpretive Data Percent cell count reference ranges are not reported, since discordance with absolute values may lead to misinterpretation of CBC data. Current Interpretive Data was last revised on 2017. Monocyte pct 13.4 % [facility] Comment: Interpretive Data Percent cell count reference ranges are not reported, since discordance with absolute values may lead to misinterpretation of CBC data. Current Interpretive Data was last revised on 2017. Eosinophil pct 6.6 % [facility] Comment: Interpretive Data Percent cell count reference ranges are not reported, since discordance with absolute values may lead to misinterpretation of CBC data. Current Interpretive Data was last revised on 2017. Basophil pct 0.5 % [facility] Comment: Interpretive Data Percent cell count reference ranges are not reported, since discordance with absolute values may lead to misinterpretation of CBC data. Current Interpretive Data was last revised on 2017. Blood 06/21/2024 5:03 AM INTERNATIONAL REPRESENTATIVE 06/21/2024 5:14 AM INTERNATIONAL REPRESENTATIVE us Patricia Bryant MD LAB BLOOD ORDERABLES Final Res ult [facility] [address] [facility] [place] [address] * (ABNORMAL) CBC with auto differential (06/21/2024 5:03 AM INTERNATIONAL REPRESENTATIVE) WBC 4.3 3.8 - 9.9 K/cumm Hgb 11.6(L) 13.0 - 17.5 g/dL [facility] Hct 34.5(L) 38.9 - 50.3 % [facility] Plt 132(L) 150 - 400 K/cumm [facility] MPV 11.3 9.1 - 12.3 fL [facility] RBC 3.53(L) 4.30 - 5.80 M/cumm [facility] MCV 97.7(H) 81.3 - 96.4 fL [facility] MCH 32.9 27.1 - 33.3 pg [facility] MCHC 33.6 32.3 - 35.7 g/dL [facility] RDW CV 13.4 11.1 - 14.9 % [facility] RDW SD 48.0 35.7 - 48.1 fL [facility] NRBC abs 0.00 0.00 - 0.01 K/cumm [facility] Blood 06/21/2024 5:03 AM INTERNATIONAL REPRESENTATIVE 06/21/2024 5:14 AM INTERNATIONAL REPRESENTATIVE Patricia Bryant MD LAB BLOOD ORDERABLES Final Res ult [facility] [place] [address] * Phosphorus (06/21/2024 5:03 AM INTERNATIONAL REPRESENTATIVE) Phosphorus, pl 3.1 2.3 - 4.5 mg/dL Blood 06/21/2024 5:03 AM INTERNATIONAL REPRESENTATIVE 06/21/2024 5:14 AM INTERNATIONAL REPRESENTATIVE Patricia Bryant MD LAB BLOOD ORDERABLES Final Res ult Performing Organization Address City/[facility] Co de Phone Number [facility] [place] [address] * Magnesium (06/21/2024 5:03 AM INTERNATIONAL REPRESENTATIVE) Magnesium 1.9 1.4 - 2.5 mg/dL Blood 06/21/2024 5:03 AM INTERNATIONAL REPRESENTATIVE 06/21/2024 5:14 AM INTERNATIONAL REPRESENTATIVE Patricia Bryant MD LAB BLOOD ORDERABLES Final Res ult Performing Organization Address City/[facility] Co de Phone Number [facility] [place] [address] * (ABNORMAL) Comprehensive metabolic panel (06/21/2024 5:03 AM INTERNATIONAL REPRESENTATIVE) Sodium 145 135 - 145 mmol/L Potassium, pl 3.4 3.3 - 4.9 mmol/L [facility] Chloride 112(H) 97 - 110 mmol/L [facility] CO2 27 22 - 32 mmol/L [facility] Anion gap 6 2 - 15 mmol/L [facility] BUN 9 6 - 25 mg/dL [facility] Creatinine 0.57(L) 0.80 - 1.30 mg/dL [facility] Glucose 106 70 - 199 mg/dL [facility] Comment: Interpretive Data Fasting glucose [...] 2022. Calcium 8.6 8.5 - 10.3 mg/dL [facility] Bilirubin, total 0.2 0.1 - 1.2 mg/dL [facility] Protein, pl 5.6(L) 6.5 - 8.5 g/dL [facility] Albumin 2.7(L) 3.5 - 5.0 g/dL [facility] Alk phos 61 40 - 130 Units/L [facility] ALT 15 7 - 55 Units/L [facility] AST 25 10 - 50 Units/L [facility] Blood 06/21/2024 5:03 AM INTERNATIONAL REPRESENTATIVE 06/21/2024 5:14 AM INTERNATIONAL REPRESENTATIVE us Patricia Bryant MD LAB BLOOD ORDERABLES Final Res ult [facility] [address] [facility] [place] [address] * TNI with LIPID PANEL (08/24/2017 4:57 PM CDT) Troponin I < 0.300 0.000 - 0.300 ng/mL Comment: Reference using JERRICA Chemiluminescence Negative: Repeat in 4-6 hours as indicated. Triglycerides 34 0 - 199 mg/dL Comment:12 hr pc highly avani mmended for Triglyceride Cholesterol 129 0 - 199 mg/dL Comment: Borderline: 200-239 High Risk: >239 HDL Cholesterol 71 mg/dL 8 5:30 PM T [facility] HISTORICAL RESULTS Comment: Reference Ranges: Males: >=40 mg/dL Females: >=50 mg/dL LDL Cholesterol, Calc 51 0 - 130 mg/dL Comment:High Risk > 159 mg/d L Cholesterol/HDL Ratio 1.8 Comment: Cholesterol / HDL Ratio 3.5:1 or less is desirable. Cholesterol / HDL Ratio greater than 5:1 is considered higher risk for developing heart disease. 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 Source: [facility] [employer] 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 Source: [facility] [employer] 09/18/22 Acinetobacter os 09/18/2022 [place] [address] [facility] Advance Directives For more information, please contact: [phone] Documents on File Type Date Recorded Patient Network Architect Expl anation ADVANCE DIRECTIVE 10/08/2012 12:00 AM SANDRA R OF [employer]ICAL * Full Code (Latest Code Status on File) Date Activated Date Inactivated Comments 06/12/2024 3:22 PM 06/28/2024 9:30 PM * Full Code Date Activated Date Inactivated Comments 12/10/2020 9:05 AM 12/13/2020 10:44 PM Care Teams [facility] Assisted Living Relationship Specialty Start Date End Date Marielena Smallwood MD [address] [facility] [place] [address] PCP - General Family Practice 07/08/24
--- OUTSIDE RECORDS SUMMARY | 2024-09-19 08:09 | XMS_ITS | Referral Summary ---
Author [place] [facility] [place] [facility] Address [address] [place] [address] Care Team Providers Care Stripper Color Name Role Phone Marielena Smallwood MD Primary Care Provider Encounters Date Type Department Care Team Description 07/09/2024 7:23 PM RESIDENCY DIRECTOR - 07/09/2024 11:59 PM RESIDENCY DIRECTOR Hospital Encounter AMBULANCE BILLING [address] [place] [address] Discharge Disposition: Discharge to home or self care 07/08/2024 7:52 PM RESIDENCY DIRECTOR - 07/09/2024 7:48 AM RESIDENCY DIRECTOR Emergency [facility] Emergency Department [address] [place] [phone] Tri Martinez MD Thomas, Cherie Edwards MD Tracheostomy complication, unspecified complication type (HCC) (Primary Dx); Balanitis Discharge Disposition: Discharge to home or self care 06/12/2024 10:26 AM RESIDENCY DIRECTOR - 06/28/2024 5:25 PM RESIDENCY DIRECTOR Hospital Encounter [address] [phone] Shakila Jung MD Choi, Cheuk Ho Jeffrey, [...] 06/28/19 Active cloBAZam (ONFI) 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 Monitor with q4 accuchecks and SSI. Hypophosphatemia 06/27/2024 Assessment & Plan (06/28/2024 11:44 AM RESIDENCY DIRECTOR): <0.7 ? 2/2 refeeding syndrome. Started on neutraphos 2pkg QID 06/26. Still Phos<0.7 06/27. Tx with IV NaPhos 30mmoles and cont per tube replacement and monitor closely. -06/28: Phos=3.3, reduce nuetraphos to 1 PKG BID and monitor History of DVT (deep vein thrombosis) 06/26/2024 Assessment & Plan (06/26/2024 1:32 PM RESIDENCY DIRECTOR): -On anticoagulation with Eliquis 5 mg po BID for hx of DVT -per chart review hx of Left Subclavian vein DVT diagnosed 08/01/23 H/O: GI bleed 06/25/2024 Assessment & Plan (06/26/2024 1:32 PM RESIDENCY DIRECTOR): - [facility] ( 06-07-24 [...] 06/25/2024 Assessment & Plan (06/26/2024 1:36 PM RESIDENCY DIRECTOR): Tracheostomy dependence, has a Shiley #4 cuffed. Pt followed at [facility], per notes trach in place for pulmonary toilet due to his copious secretions and ongoing aspiration of his secretions. -needing frequent suctioning -sats stable on 28% FIO2 by HHTC -Was getting VEST at [facility] Low grade fever 06/20/2024 Assessment & Plan (06/26/2024 1:34 PM RESIDENCY DIRECTOR): Low-grade fever and tachycardia, softer BP after [...] 06/17/2024 Assessment & Plan (06/28/2024 11:43 AM RESIDENCY DIRECTOR): -patient at admission with a G tube, was getting continous tube feedings at [facility] and not tolerating, -was changed to [...] (additional documented GJ tube procedures at [facility] most recent 09/09/23). Pt ' feeding tube fell off and pt had 18 Indonesian G tube placed at [facility] ED on 04/21/24 (records on care everywhere)and after that he has not tolerated well tube feedings per discussion with his sister Ms Hilliard,Adriane [phone] POA - consulted IR 06-20-24 for conversion [...] goal 06/25, adjust FWF per hydration status, hand method lasting machine operator to follow up -On full TF's-osmolite 1.5. Phos repleted. Copious oral secretions 06/13/2024 Assessment & Plan (06/26/2024 1:29 PM RESIDENCY DIRECTOR): Patient on chronic glycopyrrolate due to secretions, held at admission 07/01 to potential for constipation with plan to add back when he's had a bowel movements -resume on 06-19- hold on 06-20 due to somnolence. Suction PRN - restart glycopyrrolate 1mg BID 06/26 and monitor Abdominal pain 06/12/2024 Assessment & Plan (06/26/2024 1:23 PM RESIDENCY DIRECTOR): -p/w abdominal distention from SNF to ED on 06-12 ,reported biliary emesis per residential (approximately 300 cc) , not associated fevers or change in bowel habits. Feeding tube placed to gravity drainage in ED H&P notes regular bowel movements. CT scan on 06-12 in ED with stool in the rectum and sigmoid. [place] likely constipation contributing to the patient's abdominal [...] 06/12/2024 Assessment & Plan (06/26/2024 12:08 AM RESIDENCY DIRECTOR): Complicated by left LE AKA. History of CVA (cerebrovascular accident) 2020 Assessment & Plan (06/26/2024 1:32 PM RESIDENCY DIRECTOR): - hx of RT parietal CVA- hx of dementia Cont asa and statin Essential hypertension 12/11/2020 Assessment & Plan (06/26/2024 1:30 PM RESIDENCY DIRECTOR): - on metoprolol and norvasc, held with soft BP 06-19 - resume metoprolol 06-21 -resume amlodipine 06-22 - Monitor Hyperlipidemia 12/11/2020 Assessment & Plan (06/12/2024 3:47 PM RESIDENCY DIRECTOR): - Continue home statin Seizure 12/10/2020 Assessment & Plan (06/26/2024 1:36 PM RESIDENCY DIRECTOR): History of seizure disorder secondary to traumatic brain injury. Currently on valproate, Vimpat, Keppra and Cobazam - Continue home medication, valproate level low at admit 48 on 06-12, 48 on 06-13, Valproic acid level 76 06-19 prior to dose, lacosamide level 1.4 on 06/12, 9.6 on 06-19 Followed by Neurology at [facility] Cognitive communication deficit 08/25/2020 Cerebrovascular accident 06/13/2019 [...] Smokeless Tobacco: Current Tobacco Cessation:Counseling Given: Yes [facility] Utilities Answer Date Recorded In the past 12 months has [employer] electric, gas, oil, or water company threatened [...] often do you attend chur ch or jew services? Never 06/18/2024 Do you belong to any clubs o r organizations such as buddhism groups, unions, fraternal or athletic groups, or [...] any time in the past 12 m [facility], were you homeless or living in a correction (including now)? No 06/18/2024 Personal Safety Answer Date Recorded Have you ever been in or are you currently in a harmful physical or emotional relationship or is someone making you feel afraid or unsafe? Denies 07/08/2024 Sex and Gender Information Value Date Recorded Sex Assigned at Not on file Legal Sex Male 6:11 AM RESIDENCY DIRECTOR Gender Identity Not on file Sexual Orientation Not on file Last Filed Vital Signs Vital Sign Reading Time Taken Comments Blood Pressure 145/83 07/09/2024 6:00 AM RESIDENCY DIRECTOR Pulse 91 07/09/2024 6:00 AM RESIDENCY DIRECTOR Temperature 36.5 C (97.7 F) 07/09/2024 6:31 AM RESIDENCY DIRECTOR Respiratory Rate 10 07/09/2024 6:00 AM RESIDENCY DIRECTOR Oxygen Saturation 100% 07/09/2024 6:00 AM RESIDENCY DIRECTOR Inhaled Oxygen Concentration - - Weight 79.8 kg (176 lb) 07/09/2024 2:16 AM RESIDENCY DIRECTOR Height 182.9 cm (6') 07/09/2024 2:16 AM RESIDENCY DIRECTOR Body Mass Index 23.87 07/09/2024 2:16 AM RESIDENCY DIRECTOR Plan of Treatment Not on file Procedures Procedure Name Priority Date/Time Associated Diagnosis Comments POCT RAPID HIV ANTIBODY COMMUNITY SCREENING-ISSA ELIGIBLE STAT 07/09/2024 5:32 AM RESIDENCY DIRECTOR SEPSIS LACTATE WITH REFLEX Timed 07/09/2024 4:33 AM RESIDENCY DIRECTOR ED PERIPHERAL LINE INSERTION Routine 07/09/2024 1:18 AM RESIDENCY DIRECTOR SEPSIS LACTATE WITH REFLEX Timed 07/09/2024 1:15 AM RESIDENCY DIRECTOR RPR STAT 07/09/2024 1:15 AM RESIDENCY DIRECTOR N. GONORRHOEAE/C. TRACHOMATIS AMPLIFICATION STAT 07/09/2024 1:02 AM RESIDENCY DIRECTOR URINALYSIS AND REFLEX TO MICROSCOPIC AND CULTURE STAT 07/09/2024 1:02 AM RESIDENCY DIRECTOR ED PERIPHERAL LINE INSERTION Routine 07/08/2024 10:[address] CHEST ABDOMEN PELVIS W CONTRAST ED 07/08/2024 9:55 PM RESIDENCY DIRECTOR EGFR STAT 07/08/2024 8:56 PM RESIDENCY DIRECTOR DIFFERENTIAL AUTO STAT 07/08/2024 8:5 6 PM RESIDENCY DIRECTOR SEPSIS LACTATE WITH REFLEX STAT 07/08/2024 8:56 PM RESIDENCY DIRECTOR LIPASE STAT 07/08/2024 8:56 PM RESIDENCY DIRECTOR COMPREHENSIVE METABOLIC PANEL STAT 07/08/2024 8:56 PM RESIDENCY DIRECTOR CBC WITH AUTO DIFFERENTIAL STAT 07/08/2024 8:56 PM RESIDENCY DIRECTOR RESPIRATORY PATHOGEN PANEL STAT 07/08/2024 8:56 PM RESIDENCY DIRECTOR ECG 12-LEAD Routine 07/08/2024 8:28 PM RESIDENCY DIRECTOR XR CHEST 1 VIEW ED 07/08/2024 8:18 PM RESIDENCY DIRECTOR POCT GLUCOSE DEVICE Routine 06/28/2024 4 :24 PM RESIDENCY DIRECTOR POCT GLUCOSE DEVICE Routine 06/28/2024 1 2:30 PM RESIDENCY DIRECTOR POCT GLUCOSE DEVICE Routine 06/28/2024 7 :43 AM RESIDENCY DIRECTOR POCT GLUCOSE DEVICE Routine 06/28/2024 4 :01 AM RESIDENCY DIRECTOR POCT GLUCOSE DEVICE Routine 06/27/2024 1 1:28 PM RESIDENCY DIRECTOR EGFR Routine 06/27/2024 9:30 PM RESIDENCY DIRECTOR PHOSPHORUS Routine 06/27/2024 9:30 PM RESIDENCY DIRECTOR MAGNESIUM Routine 06/27/2024 9:30 PM RESIDENCY DIRECTOR BASIC METABOLIC PANEL Routine 06/27/2024 9:30 PM RESIDENCY DIRECTOR POCT GLUCOSE DEVICE Routine 06/27/2024 8 :39 PM RESIDENCY DIRECTOR POCT GLUCOSE DEVICE Routine 06/27/2024 5 :10 PM RESIDENCY DIRECTOR POCT GLUCOSE DEVICE Routine 06/27/2024 4 :27 PM RESIDENCY DIRECTOR POCT GLUCOSE DEVICE Routine 06/27/2024 1 :06 PM RESIDENCY DIRECTOR POCT GLUCOSE DEVICE Routine 06/27/2024 9 :59 AM RESIDENCY DIRECTOR EGFR Routine 06/26/2024 10:21 PM RESIDENCY DIRECTOR DIFFERENTIAL AUTO Routine 06/26/2024 10: 21 PM RESIDENCY DIRECTOR PHOSPHORUS Routine 06/26/2024 10:21 PM RESIDENCY DIRECTOR MAGNESIUM Routine 06/26/2024 10:21 PM RESIDENCY DIRECTOR CBC WITH AUTO DIFFERENTIAL Routine 06/26/2024 10:21 PM RESIDENCY DIRECTOR BASIC METABOLIC PANEL Routine 06/26/2024 10:21 PM RESIDENCY DIRECTOR HEPATITIS B SURFACE ANTIGEN Routine 06/26/2024 10:21 PM RESIDENCY DIRECTOR PHOSPHORUS Routine 06/26/2024 3:21 PM RESIDENCY DIRECTOR RPR Routine 06/26/2024 3:21 PM RESIDENCY DIRECTOR HEPATITIS C ANTIBODY Routine 06/26/2024 3:21 PM RESIDENCY DIRECTOR HIV 1/2 ANTIBODY PLUS P24 ANTIGEN Routine 06/26/2024 3:21 PM RESIDENCY DIRECTOR EGFR Routine 06/26/2024 12:16 AM RESIDENCY DIRECTOR PHOSPHORUS Routine 06/26/2024 12:16 AM RESIDENCY DIRECTOR MAGNESIUM Routine 06/26/2024 12:16 AM RESIDENCY DIRECTOR BASIC METABOLIC PANEL Routine 06/26/2024 12:16 AM RESIDENCY DIRECTOR POCT GLUCOSE DEVICE Routine 06/23/2024 1 1:36 AM RESIDENCY DIRECTOR CBC WITHOUT DIFFERENTIAL Timed 06/23/2024 9:07 AM RESIDENCY DIRECTOR VANCOMYCIN LEVEL TROUGH Routine 06/23/2024 9:00 AM RESIDENCY DIRECTOR EGFR Routine 06/23/2024 9:00 AM RESIDENCY DIRECTOR MAGNESIUM Routine 06/23/2024 9:00 AM RESIDENCY DIRECTOR PHOSPHORUS Routine 06/23/2024 9:00 AM RESIDENCY DIRECTOR BASIC METABOLIC PANEL Routine 06/23/2024 9:00 AM RESIDENCY DIRECTOR G TO GJ-TUBE REPLACEMENT IP Routine 06/22/2024 1:24 PM RESIDENCY DIRECTOR C. DIFFICILE TESTING Routine 06/21/2024 11:11 AM RESIDENCY DIRECTOR INFECTION PREVENTION VRE CULTURE Routine 06/21/2024 11:10 AM RESIDENCY DIRECTOR VANCOMYCIN LEVEL TROUGH Timed 06/21/2024 7:16 AM RESIDENCY DIRECTOR EGFR Routine 06/21/2024 5:03 AM RESIDENCY DIRECTOR DIFFERENTIAL AUTO Routine 06/21/2024 5:0 3 AM RESIDENCY DIRECTOR PHOSPHORUS Timed 06/21/2024 5:03 AM RESIDENCY DIRECTOR MAGNESIUM Routine 06/21/2024 5:03 AM RESIDENCY DIRECTOR COMPREHENSIVE METABOLIC PANEL Routine 06/21/2024 5:03 AM RESIDENCY DIRECTOR CBC WITH AUTO DIFFERENTIAL Routine 06/21/2024 5:03 AM RESIDENCY DIRECTOR HEMOGLOBIN A1C Routine 06/12/2024 3:30 PM RESIDENCY DIRECTOR TNI WITH LIPID PANEL Routine 08/24/2017 4:57 PM CDT from Last 3 Months or Most Recently Relevant to Health Maintenance Results * POCT Rapid HIV Antibody Community Screening-Issa Eligible (07/09/2024 5:32 AM RESIDENCY DIRECTOR) [facility] Rapid HIV, POC Negative Negative Lot Number [id number] QC Control Line Acceptable Blood 07/09/2024 5:32 AM RESIDENCY DIRECTOR Naa Tam MD POINT OF CARE TEST ORDER NICHOLE Final Result * Sepsis Lactate w/ Reflex (07/09/2024 4:33 AM RESIDENCY DIRECTOR) [facility] Sepsis Lactate 2.0 0.7 - 2.0 mmol/L Blood 07/09/2024 4:33 AM RESIDENCY DIRECTOR 07/09/2024 4:42 AM RESIDENCY DIRECTOR us Naa Tam MD LAB BLOOD ORDERABLES Fin al Result Performing Organization Address [facility] Co de Phone Number [facility] Department [place] [address] * ED PERIPHERAL LINE INSERTION (07/09/2024 1:18 AM RESIDENCY DIRECTOR) Narrative Cherie Damian MD - 07/09/2024 1:18 AM RESIDENCY DIRECTOR Atul Barba MD 07/09/2024 1:18 AM Peripheral line insertion Date/Time: 07/09/2024 1:18 AM Performed by: Atul Barab MD Authorized by: Cherie Damian MD Indications: [...] Sepsis Lactate w/ Reflex (07/09/2024 1:15 AM RESIDENCY DIRECTOR) Sepsis Lactate 2.8(H) 0.7 - 2.0 mmol/L Blood 07/09/2024 1:15 AM RESIDENCY DIRECTOR 07/09/2024 1:46 AM RESIDENCY DIRECTOR us Naa Tam MD LAB BLOOD ORDERABLES Fin al Result Performing Organization Address [facility] de Phone Number [facility] [place] [address] * RPR Blood (07/09/2024 1:15 AM RESIDENCY DIRECTOR) [facility] RPR Nonreactive Nonreactive Blood 07/09/2024 1:15 AM RESIDENCY DIRECTOR 07/09/2024 1:40 AM RESIDENCY DIRECTOR Naa Tam MD LAB MICROBIOLOGY - GENER AL ORDERABLES Final Result Performing Organization Address [facility] de Phone Number [facility] [place] [address] * N. gonorrhoeae/C. trachomatis Amplification Urine (07/09/2024 1:02 AM RESIDENCY DIRECTOR) [facility] C. trachomatis Not Detected Not Detected [facility] N. gonorrhoeae Not Detected Not Detected [facility] Comment: Interpretive Data This assay detects Chlamydia trachomatis and Neisseria gonorrhoeae by nucleic acid amplification testing (NAAT). This assay has been cleared by the [place] Food and Drug administration. The performance characteristics of this test have been verified by the [facility] Molecular Infectious Disease laboratory. The performance characteristics of this test have not been evaluated in individuals less than 14 years of age. Current Interpretive Data last revised 2023. Urine (None) 07/09/2024 1:02 AM RESIDENCY DIRECTOR 07/09/2024 1:35 AM RESIDENCY DIRECTOR Naa Tam MD LAB MICROBIOLOGY - GENER AL ORDERABLES Final Result Performing Organization Address [facility] de Phone Number [facility] [place] [address] [facility] * (ABNORMAL) Urinalysis reflex to microscopic and culture Urine, clean voided (07/09/2024 1:02 AM RESIDENCY DIRECTOR) [facility] Color, ur Straw Yellow Clarity, ur Clear Clear [facility] Specific gravity, ur >1.042(H) 1.003 - 1.030 [facility] pH, urine 7.5 [facility] Comment: Interpretive Data U rine pH is affected by diet, medications, systemic acid-base disturbances, and renal tubular function. pH may affect urinary stone formation. For example, urine pH below 6.0 may help reduce the tendency for calcium phosphate stones and pH greater than 6.0 may reduce the tendency for uric acid stone formation. Source: [facility] Current Interpretive Data was last revised on 2017 Protein, ur ql Trace Negative [facility] Glucose, ur ql Negative Negative [facility] Ketones, ur Negative Negative [facility] Bilirubin, ur Negative Negative [facility] Blood, ur Negative Negative [facility] Urobilinogen, ur <2.0 <2.0 mg/dL [facility] Nitrite, ur Negative Negative [facility] Leukocyte esterase, ur Negative Negative [facility] UA reflex comment Reflex conditions for microscopic UA and culture not met. [facility] Urine, clean voided 07/09/2024 1:02 AM RESIDENCY DIRECTOR 07/09/2024 1:15 AM RESIDENCY DIRECTOR us Naa Tam MD LAB MICROBIOLOGY - GENER AL ORDERABLES Final Result [facility] Department [place] [address] * ED PERIPHERAL LINE INSERTION (07/08/2024 10:11 PM RESIDENCY DIRECTOR) Narrative Tri Martinez MD - 07/08/2024 10:11 PM RESIDENCY DIRECTOR Atul Barba MD 07/08/2024 10:12 PM Peripheral [...] Abdomen Pelvis W Contrast (07/08/2024 9:55 PM RESIDENCY DIRECTOR) Anatomical Region Laterality Modality Body N/A Computed Tomogra phy 07/08/2024 10:3 2 PM RESIDENCY DIRECTOR Impressions 07/09/2024 7:23 AM RESIDENCY DIRECTOR Liquid stool within the colon, indicative of diarrheal state. Otherwise, no acute abnormalities in the abdomen or pelvis. Dictated by: Delia Morton MD The radiology attending physician has personally reviewed this study, and had reviewed and/or edited this written report and agrees with it. Electronically signed by: Marlon Kohler M.D. Narrative 07/09/2024 7:23 AM RESIDENCY DIRECTOR EXAMINATION: Computed tomography of the chest, abdomen [...] Sepsis Lactate w/ Reflex (07/08/2024 8:56 PM RESIDENCY DIRECTOR) Sepsis Lactate 2.4(H) 0.7 - 2.0 mmol/L Blood 07/08/2024 8:56 PM RESIDENCY DIRECTOR 07/08/2024 9:24 PM RESIDENCY DIRECTOR us Naa Tam MD LAB BLOOD ORDERABLES Fin al Result [facility] Department [place] [address] * eGFR (07/08/2024 8:56 PM RESIDENCY DIRECTOR) eGFR >90 >=60 mL/min/1. 73 m2 Comment: [...] last reviewed 2021. Blood 07/08/2024 8:56 PM RESIDENCY DIRECTOR 07/08/2024 9:26 PM RESIDENCY DIRECTOR us Naa Tam MD LAB BLOOD ORDERABLES Fin al Result [facility] Department [place] [address] * Differential, auto (07/08/2024 8:56 PM RESIDENCY DIRECTOR) Pathologist [facility] [place] Neutrophil abs 4.4 1.5 - 6.5 K/cumm Imm gran abs 0.0 0.0 - 0.1 K/cumm [facility] Lymphocyte abs 2.6 0.8 - 3.3 K/cumm [facility] Monocyte abs 0.5 0.2 - 0.8 K/cumm [facility] Eosinophil abs 0.5 0.0 - 0.5 K/cumm [facility] Basophil abs 0.0 0.0 - 0.1 K/cumm [facility] Neutrophil pct 54.7 % [facility] Comment: Interpretive Data Percent cell count reference ranges are not reported, since discordance with absolute values may lead to misinterpretation of CBC data. Current Interpretive Data was last revised on 2017. Imm gran pct 0.2 % [facility] Comment: Interpretive Data Percent cell count reference ranges are not reported, since discordance with absolute values may lead to misinterpretation of CBC data. Current Interpretive Data was last revised on 2017. Lymphocyte pct 32.1 % [facility] Comment: Interpretive Data Percent cell count reference ranges are not reported, since discordance with absolute values may lead to misinterpretation of CBC data. Current Interpretive Data was last revised on 2017. Monocyte pct 6.6 % [facility] Comment: Interpretive Data Percent cell count reference ranges are not reported, since discordance with absolute values may lead to misinterpretation of CBC data. Current Interpretive Data was last revised on 2017. Eosinophil pct 6.0 % [facility] Comment: Interpretive Data Percent cell count reference ranges are not reported, since discordance with absolute values may lead to misinterpretation of CBC data. Current Interpretive Data was last revised on 2017. Basophil pct 0.4 % [facility] Comment: Interpretive Data Percent cell count reference ranges are not reported, since discordance with absolute values may lead to misinterpretation of CBC data. Current Interpretive Data was last revised on 2017. Blood 07/08/2024 8:56 PM RESIDENCY DIRECTOR 07/08/2024 9:27 PM RESIDENCY DIRECTOR Naa Tam MD LAB BLOOD ORDERABLES Fin al Result [facility] Department [place] [address] * Respiratory pathogen panel Nasopharyngeal (07/08/2024 8:56 PM RESIDENCY DIRECTOR) Pathologist [facility] [place] Influenza A RNA Not Detected Not Detected Influenza B RNA Not Detected Not Detected [facility] RSV RNA Not Detected Not Detected [facility] COVID-19 RNA Not Detected Not Detected [facility] Coronavirus 229E RNA Not Detected Not Detected [facility] Coronavirus HKU1 RNA Not Detected Not Detected [facility] Coronavirus NL63 RNA Not Detected Not Detected [facility] Coronavirus OC43 RNA Not Detected Not Detected [facility] Adenovirus DNA Not Detected Not Detected [facility] Metapneumovirus RNA Not Detected Not Detected [facility] Rhinovirus/Enterov irus RNA Not Detected Not Detected [facility] Parainfluenza 1 RNA Not Detected Not Detected [facility] Parainfluenza 2 RNA Not Detected Not Detected [facility] Parainfluenza 3 RNA Not Detected Not Detected [facility] Parainfluenza 4 RNA Not Detected Not Detected [facility] B. pertussis DNA Not Detected Not Detected [facility] B. parapertussis DNA Not Detected Not Detected [facility] C. pneumoniae DNA Not Detected Not Detected [facility] M. pneumoniae DNA Not Detected Not Detected [facility] Nasopharyngeal 07/08/2024 8: 56 PM RESIDENCY DIRECTOR 07/08/2024 9:25 PM RESIDENCY DIRECTOR Narrative [facility] - 07/08/2024 10:16 PM RESIDENCY DIRECTOR Is the Patient experiencing symptoms consistent with COVID?->Yes Surveillance testing for transplant patient?->No Interpretive Data The PWRF FilmArray Respiratory Panel (RP2.1) assay is a [...] assay has FDA clearance for testing of FIRE [employer] REFINERY swabs. The performance of additional specimen types has been assessed by the performing laboratory. The performance characteristics of this assay have been determined by [facility] Molecular Infectious Disease Laboratory. Current interpretive data was last revised on 22. us Naa Tam MD LAB MICROBIOLOGY - GENER AL ORDERABLES Final Result Performing Organization Address [facility] de Phone Number [facility] [place] [address] * (ABNORMAL) CBC with auto differential (07/08/2024 8:56 PM RESIDENCY DIRECTOR) [facility] WBC 8.0 3.8 - 9.9 K/cumm Hgb 14.4 13.0 - 17.5 g/dL [facility] Hct 43.3 38.9 - 50.3 % [facility] Plt 236 150 - 400 K/cumm [facility] MPV 12.4(H) 9.1 - 12.3 fL [facility] RBC 4.49 4.30 - 5.80 M/cumm [facility] MCV 96.4 81.3 - 96.4 fL [facility] MCH 32.1 27.1 - 33.3 pg [facility] MCHC 33.3 32.3 - 35.7 g/dL [facility] RDW CV 13.5 11.1 - 14.9 % [facility] RDW SD 47.9 35.7 - 48.1 fL [facility] NRBC abs 0.00 0.00 - 0.01 K/cumm [facility] Blood 07/08/2024 8:56 PM RESIDENCY DIRECTOR 07/08/2024 9:27 PM RESIDENCY DIRECTOR us Naa Tam MD LAB BLOOD ORDERABLES Fin al Result Performing Organization Address [facility] Co de Phone Number [facility] Department [place] [address] * Lipase (07/08/2024 8:56 PM RESIDENCY DIRECTOR) [facility] Lipase 32 10 - 99 Units/L Blood 07/08/2024 8:56 PM RESIDENCY DIRECTOR 07/08/2024 9:26 PM RESIDENCY DIRECTOR us Naa Tam MD LAB BLOOD ORDERABLES Fin al Result Performing Organization Address [facility]/ZIP Co de Phone Number [facility] [facility] Department [place] [address] * (ABNORMAL) Comprehensive metabolic panel (07/08/2024 8:56 PM RESIDENCY DIRECTOR) Sodium 141 135 - 145 mmol/L Potassium, pl 4.5 3.3 - 4.9 mmol/L [facility] Chloride 102 97 - 110 mmol/L [facility] CO2 28 22 - 32 mmol/L [facility] Anion gap 11 2 - 15 mmol/[facility] B[facility] 15 6 - 25 mg/dL [facility] Creatinine 0.63(L) 0.80 - 1.30 mg/dL [facility] Glucose 110 70 - 199 mg/dL [facility] Comment: Interpretive Data Fasting glucose >/= [...] Calcium 10.1 8.5 - 10.3 mg/dL [facility] Bilirubin, total 0.2 0.1 - 1.2 mg/dL [facility] Protein, pl 8.0 6.5 - 8.5 g/dL [facility] Albumin 4.1 3.5 - 5.0 g/dL [facility] Alk phos 110 40 - 130 Units/L [facility] ALT 28 7 - 55 Units/L [facility] AST 26 10 - 50 Units/L [facility] Blood 07/08/2024 8:56 PM RESIDENCY DIRECTOR 07/08/2024 9:26 PM RESIDENCY DIRECTOR us Naa Tam MD LAB BLOOD ORDERABLES Fin al Result [facility] Department [place] [address] * ECG 12-LEAD (07/08/2024 8:28 PM RESIDENCY DIRECTOR) Narrative [facility] - 07/08/2024 8:28 PM RESIDENCY DIRECTOR Naa Tam MD 07/08/2024 8:30 PM ECG [...] ORDERABLES Final Re sult Performing Organization Address [facility]/State/ZIP Co de Phone Number [facility] * XR Chest 1 View (07/08/2024 8:18 PM RESIDENCY DIRECTOR) Anatomical Region Laterality Modality Body, Chest N/A Computed Radiogr aphy 07/08/2024 8:28 PM RESIDENCY DIRECTOR Impressions 07/08/2024 9:56 PM RESIDENCY DIRECTOR Comparison is made to chest graft dated [...] Sekou Wolf M.D. Narrative 07/08/2024 9:56 PM RESIDENCY DIRECTOR EXAMINATION: 1 view chest radiograph Procedure Note [...] Result * POCT glucose (06/28/2024 4:24 PM RESIDENCY DIRECTOR) Glucose, POC 191 70 - 199 mg/dL Blood 06/28/2024 4:24 PM RESIDENCY DIRECTOR 06/28/2024 4:24 PM RESIDENCY DIRECTOR us Kami Dupont MD LAB POCT ORDERABLES - DEV ICE Final Result Performing Organization Address [facility] Co de Phone Number [facility] Department [place] [employer] [place] [address] * POCT glucose (06/28/2024 12:30 PM RESIDENCY DIRECTOR) Glucose, POC 197 70 - 199 mg/dL Blood 06/28/2024 12:3 0 PM RESIDENCY DIRECTOR 06/28/2024 12:30 PM RESIDENCY DIRECTOR us Kami Dupont MD LAB POCT ORDERABLES - DEV ICE Final Result Performing Organization Address [facility] Co de Phone Number [facility] Department [place] [address] * POCT glucose (06/28/2024 7:43 AM RESIDENCY DIRECTOR) Glucose, POC 191 70 - 199 mg/dL Blood 06/28/2024 7:43 AM RESIDENCY DIRECTOR 06/28/2024 7:43 AM RESIDENCY DIRECTOR Kami Dupont MD LAB POCT ORDERABLES - DEV ICE Final Result Performing Organization Address [facility] de Phone Number [facility] [place] [employer] [place] [address] * POCT glucose (06/28/2024 4:01 AM RESIDENCY DIRECTOR) Glucose, POC 173 70 - 199 mg/dL Blood 06/28/2024 4:01 AM RESIDENCY DIRECTOR 06/28/2024 4:01 AM RESIDENCY DIRECTOR Kami Dupont MD LAB POCT ORDERABLES - DEV ICE Final Result Performing Organization Address [facility] de Phone Number [facility] [place] [address] * (ABNORMAL) POCT glucose (06/27/2024 11:28 PM RESIDENCY DIRECTOR) [facility] Glucose, POC 220(H) 70 - 199 mg/dL Comment:Use Protocol Glucose comment 1 Use Protocol [facility] Blood 06/27/2024 11:2 8 PM RESIDENCY DIRECTOR 06/27/2024 11:28 PM RESIDENCY DIRECTOR Kami Dupont MD LAB POCT ORDERABLES - DEV ICE Final Result Performing Organization Address [facility] de Phone Number [facility] [place] [address] * eGFR (06/27/2024 9:30 PM RESIDENCY DIRECTOR) [facility] eGFR >90 >=60 mL/min/1. 73 m2 Comment: [...] last reviewed 2021. Blood 06/27/2024 9:30 PM RESIDENCY DIRECTOR 06/27/2024 9:45 PM RESIDENCY DIRECTOR Kami Dupont MD LAB BLOOD ORDERABLES Lulu l Result [facility] Department [place] [employer] [place] [address] * Phosphorus (06/27/2024 9:30 PM RESIDENCY DIRECTOR) Phosphorus, pl 3.3 2.3 - 4.5 mg/dL Comment:Repeated and Verifie d Blood 06/27/2024 9:30 PM RESIDENCY DIRECTOR 06/27/2024 9:45 PM RESIDENCY DIRECTOR Kami Dupont MD LAB BLOOD ORDERABLES Lulu l Result [facility] [place] [address] * Magnesium (06/27/2024 9:30 PM RESIDENCY DIRECTOR) Magnesium 1.9 1.4 - 2.5 mg/dL Blood 06/27/2024 9:30 PM RESIDENCY DIRECTOR 06/27/2024 9:45 PM RESIDENCY DIRECTOR Kami Dupont MD LAB BLOOD ORDERABLES Lulu coley Result Performing Organization Address City/[facility]/ZIP Co de Phone Number [facility] Department [place] [address] * (ABNORMAL) Basic metabolic panel (06/27/2024 9:30 PM RESIDENCY DIRECTOR) Pathologist [facility] [place] Sodium 141 135 - 145 mmol/L Potassium, pl 4.4 3.3 - 4.9 mmol/L [facility] Chloride 105 97 - 110 mmol/L [facility] CO2 28 22 - 32 mmol/L [facility] Anion gap 8 2 - 15 mmol/L [facility] BUN 9 6 - 25 mg/dL [facility] Creatinine 0.47(L) 0.80 - 1.30 mg/dL [facility] Glucose 208(H) 70 - 199 mg/dL [facility] Comment: Interpretive Data Fasting glucose >/= [...] Calcium 8.9 8.5 - 10.3 mg/dL [facility] Blood 06/27/2024 9:30 PM RESIDENCY DIRECTOR 06/27/2024 9:45 PM RESIDENCY DIRECTOR Kami Dupont MD LAB BLOOD ORDERABLES Lulu l Result Performing Organization Address [facility] Co de Phone Number [facility] Department [place] [address] * POCT glucose (06/27/2024 8:39 PM RESIDENCY DIRECTOR) Glucose, POC 195 70 - 199 mg/dL Blood 06/27/2024 8:39 PM RESIDENCY DIRECTOR 06/27/2024 8:39 PM RESIDENCY DIRECTOR Kami Dupont MD LAB POCT ORDERABLES - DEV ICE Final Result Performing Organization Address [facility] de Phone Number [facility] [place] [address] * POCT glucose (06/27/2024 5:10 PM RESIDENCY DIRECTOR) Glucose, POC 194 70 - 199 mg/dL Blood 06/27/2024 5:10 PM RESIDENCY DIRECTOR 06/27/2024 5:10 PM RESIDENCY DIRECTOR Kami Dupont MD LAB POCT ORDERABLES - DEV ICE Final Result Performing Organization Address [facility] de Phone Number [facility] [place] [address] * (ABNORMAL) POCT glucose (06/27/2024 4:27 PM RESIDENCY DIRECTOR) Glucose, POC 224(H) 70 - 199 mg/dL Blood 06/27/2024 4:27 PM RESIDENCY DIRECTOR 06/27/2024 4:27 PM RESIDENCY DIRECTOR Kami Dupont MD LAB POCT ORDERABLES - DEV ICE Final Result Performing Organization Address [facility] de Phone Number [facility] [place] [address] * POCT glucose (06/27/2024 1:06 PM RESIDENCY DIRECTOR) Glucose, POC 173 70 - 199 mg/dL Blood 06/27/2024 1:06 PM RESIDENCY DIRECTOR 06/27/2024 1:06 PM RESIDENCY DIRECTOR Kami Dupont MD LAB POCT ORDERABLES - DEV ICE Final Result [facility] [place] [address] * POCT glucose (06/27/2024 9:59 AM RESIDENCY DIRECTOR) Glucose, POC 158 70 - 199 mg/dL Blood 06/27/2024 9:59 AM RESIDENCY DIRECTOR 06/27/2024 9:59 AM RESIDENCY DIRECTOR Kami Dupont MD LAB POCT ORDERABLES - DEV ICE Final Result Performing Organization Address [facility] de Phone Number [facility] [place] [address] * eGFR (06/26/2024 10:21 PM RESIDENCY DIRECTOR) eGFR >90 >=60 mL/min/1. 73 m2 Comment: [...] reviewed 2021. Blood 06/26/2024 10:2 1 PM RESIDENCY DIRECTOR 06/26/2024 10:53 PM RESIDENCY DIRECTOR us Kami Dupont MD LAB BLOOD ORDERABLES Lulu coley Result [facility] Department [place] [address] * Differential, auto (06/26/2024 10:21 PM RESIDENCY DIRECTOR) Neutrophil abs 5.0 1.5 - 6.5 K/cumm Imm gran abs 0.0 0.0 - 0.1 K/cumm [facility] Lymphocyte abs 2.4 0.8 - 3.3 K/cumm [facility] Monocyte abs 0.8 0.2 - 0.8 K/cumm [facility] Eosinophil abs 0.4 0.0 - 0.5 K/cumm [facility] Basophil abs 0.0 0.0 - 0.1 K/cumm [facility] Neutrophil pct 58.2 % [facility] Comment: Interpretive Data Percent cell count reference ranges are not reported, since discordance with absolute values may lead to misinterpretation of CBC data. Current Interpretive Data was last revised on 2017. Imm gran pct 0.3 % [facility] Comment: Interpretive Data Percent cell count reference ranges are not reported, since discordance with absolute values may lead to misinterpretation of CBC data. Current Interpretive Data was last revised on 2017. Lymphocyte pct 27.9 % [facility] Comment: Interpretive Data Percent cell count reference ranges are not reported, since discordance with absolute values may lead to misinterpretation of CBC data. Current Interpretive Data was last revised on 2017. Monocyte pct 9.2 % [facility] Comment: Interpretive Data Percent cell count reference ranges are not reported, since discordance with absolute values may lead to misinterpretation of CBC data. Current Interpretive Data was last revised on 2017. Eosinophil pct 4.1 % [facility] Comment: Interpretive Data Percent cell count reference ranges are not reported, since discordance with absolute values may lead to misinterpretation of CBC data. Current Interpretive Data was last revised on 2017. Basophil pct 0.3 % [facility] Comment: Interpretive Data Percent cell count reference ranges are not reported, since discordance with absolute values may lead to misinterpretation of CBC data. Current Interpretive Data was last revised on 2017. Blood 06/26/2024 10:2 1 PM RESIDENCY DIRECTOR 06/26/2024 10:53 PM RESIDENCY DIRECTOR Kami Dupont MD LAB BLOOD ORDERABLES Lulu l Result Performing Organization Address City/[facility]/ZIP Co de Phone Number [facility] Department [place] [address] * (ABNORMAL) CBC with auto differential (06/26/2024 10:21 PM RESIDENCY DIRECTOR) WBC 8.6 3.8 - 9.9 K/cumm Hgb 13.1 13.0 - 17.5 g/dL [facility] Hct 39.1 38.9 - 50.3 % [facility] Plt 173 150 - 400 K/cumm [facility] MPV 13.1(H) 9.1 - 12.3 fL [facility] RBC 4.07(L) 4.30 - 5.80 M/cumm [facility] MCV 96.1 81.3 - 96.4 fL [facility] MCH 32.2 27.1 - 33.3 pg [facility] MCHC 33.5 32.3 - 35.7 g/dL [facility] RDW CV 13.5 11.1 - 14.9 % [facility] RDW SD 47.8 35.7 - 48.1 fL [facility] NRBC abs 0.00 0.00 - 0.01 K/cumm [facility] Blood 06/26/2024 10:2 1 PM RESIDENCY DIRECTOR 06/26/2024 10:53 PM RESIDENCY DIRECTOR Kami Dupont MD LAB BLOOD ORDERABLES Lulu l Result Performing Organization Address City/[facility]/ZIP Co de Phone Number [facility] Department [place] [address] * Hepatitis B Surface Antigen Blood (06/26/2024 10:21 PM RESIDENCY DIRECTOR) [facility] HepBsAg Nonreactive Nonreactive Blood 06/26/2024 10:2 1 PM RESIDENCY DIRECTOR 06/26/2024 10:53 PM RESIDENCY DIRECTOR Kami Dupont MD LAB MICROBIOLOGY - GENERA L ORDERABLES Final Result Performing Organization Address City/[facility]/ZIP Co de Phone Number [facility] [place] [address] * (ABNORMAL) Phosphorus (06/26/2024 10:21 PM RESIDENCY DIRECTOR) [facility] Phosphorus, pl <0.7(L) 2.3 - 4.5 mg/dL Comment:Repeated and Verifie d Blood 06/26/2024 10:2 1 PM RESIDENCY DIRECTOR 06/26/2024 10:53 PM RESIDENCY DIRECTOR Result [facility] Kami Dupont MD LAB BLOOD ORDERABLES Lulu l Result Performing Organization Address [facility] Co de Phone Number [facility] [place] [address] * Magnesium (06/26/2024 10:21 PM RESIDENCY DIRECTOR) [facility] Magnesium 2.0 1.4 - 2.5 mg/dL Blood 06/26/2024 10:2 1 PM RESIDENCY DIRECTOR 06/26/2024 10:53 PM RESIDENCY DIRECTOR Result [facility] Kami Dupont MD LAB BLOOD ORDERABLES Lulu l Result Performing Organization Address City/[facility] Co de Phone Number [facility] [place] [address] * (ABNORMAL) Basic metabolic panel (06/26/2024 10:21 PM RESIDENCY DIRECTOR) [facility] Sodium 141 135 - 145 mmol/L Potassium, pl 4.7 3.3 - 4.9 mmol/L [facility] Chloride 106 97 - 110 mmol/L [facility] CO2 28 22 - 32 mmol/L [facility] Anion gap 7 2 - 15 mmol/L [facility] BUN 11 6 - 25 mg/dL [facility] Creatinine 0.47(L) 0.80 - 1.30 mg/dL [facility] Glucose 213(H) 70 - 199 mg/dL [facility] Comment: Interpretive Data Fasting glucose >/= [...] Calcium 9.3 8.5 - 10.3 mg/dL [facility] Blood 06/26/2024 10:2 1 PM RESIDENCY DIRECTOR 06/26/2024 10:53 PM RESIDENCY DIRECTOR Kami Dupont MD LAB BLOOD ORDERABLES Lulu l Result [facility] Department [place] [address] * HIV 1/2 Antibody plus p24 Antigen Blood (06/26/2024 3:21 PM RESIDENCY DIRECTOR) HIV 1/2 ab + p24 ag Nonreactive Nonreactive Comment:Nonreactive for HIV- 1 antigen and HIV-1/HIV-2 antibodies. No laboratory evidence of HIV infection. If acute HIV infection is suspected, consider testing for HIV-1 RNA. Current interpretive data was last revised on 22. Blood 06/26/2024 3:21 PM RESIDENCY DIRECTOR 06/26/2024 3:41 PM RESIDENCY DIRECTOR Kami Dupont MD LAB MICROBIOLOGY - GENERA L ORDERABLES Final Result [facility] [place] [address] * Hepatitis C antibody Blood (06/26/2024 3:21 PM RESIDENCY DIRECTOR) Pathologist [facility] [place] Hep C Ab Nonreactive Nonreactive Comment:Antibodies to HCV no t detected. Does NOT exclude the possibility of recent exposure to HCV. Current interpretive data was last revised on 22 Blood 06/26/2024 3:21 PM RESIDENCY DIRECTOR 06/26/2024 3:41 PM RESIDENCY DIRECTOR Kami Dupont MD LAB MICROBIOLOGY - GENERA L ORDERABLES Final Result Performing Organization Address [facility] [place] [address] * RPR Blood (06/26/2024 3:21 PM RESIDENCY DIRECTOR) [facility] RPR Nonreactive Nonreactive Blood 06/26/2024 3:21 PM RESIDENCY DIRECTOR 06/26/2024 3:41 PM RESIDENCY DIRECTOR Kami Dupont MD LAB MICROBIOLOGY - GENERA L ORDERABLES Final Result Performing Organization Address [facility] Phone Number [facility] Department [place] [address] * (ABNORMAL) Phosphorus (06/26/2024 3:21 PM RESIDENCY DIRECTOR) [facility] Phosphorus, pl 0.7(L) 2.3 - 4.5 mg/dL Comment:Repeated and Verifie d Blood 06/26/2024 3:21 PM RESIDENCY DIRECTOR 06/26/2024 3:41 PM RESIDENCY DIRECTOR us Kami Dupont MD LAB BLOOD ORDERABLES Lulu l Result Performing Organization Address [facility] de Phone Number [facility] Department [place] [address] * eGFR (06/26/2024 12:16 AM RESIDENCY DIRECTOR) eGFR >90 >=60 mL/min/1. 73 m2 Comment: [...] reviewed 2021. Blood 06/26/2024 12:1 6 AM RESIDENCY DIRECTOR 06/26/2024 12:39 AM RESIDENCY DIRECTOR us Patricia Bryant MD LAB BLOOD ORDERABLES Final Res ult Performing Organization Address City/[facility] Co de Phone Number [facility] Department [place] [address] * (ABNORMAL) Phosphorus (06/26/2024 12:16 AM RESIDENCY DIRECTOR) Phosphorus, pl <0.7(L) 2.3 - 4.5 mg/dL Comment:Repeated and Verifie d Blood 06/26/2024 12:1 6 AM RESIDENCY DIRECTOR 06/26/2024 12:39 AM RESIDENCY DIRECTOR Patricia Bryant MD LAB BLOOD ORDERABLES Final Res ult [facility] Department [place] [address] * Magnesium (06/26/2024 12:16 AM RESIDENCY DIRECTOR) Pathologist [facility] [place] Magnesium 1.9 1.4 - 2.5 mg/dL Blood 06/26/2024 12:1 6 AM RESIDENCY DIRECTOR 06/26/2024 12:39 AM RESIDENCY DIRECTOR us Patricia Bryant MD LAB BLOOD ORDERABLES Final Res ult [facility] Department [place] [address] * (ABNORMAL) Basic metabolic panel (06/26/2024 12:16 AM RESIDENCY DIRECTOR) Pathologist [facility] [place] Sodium 142 135 - 145 mmol/L Potassium, pl 4.4 3.3 - 4.9 mmol/L [facility] Comment:Hemolyzed; Potassium value may be falsely elevated by as much as 0.3-0.5 mmol/L. Suggest redraw and reanalysis. Chloride 109 97 - 110 mmol/L [facility] CO2 29 22 - 32 mmol/L [facility] Anion gap 4 2 - 15 mmol/L [facility] BUN 13 6 - 25 mg/dL [facility] Creatinine 0.53(L) 0.80 - 1.30 mg/dL [facility] Glucose 177 70 - 199 mg/dL [facility] Comment: Interpretive Data Fasting glucose >/= [...] Calcium 9.0 8.5 - 10.3 mg/dL [facility] Blood 06/26/2024 12:1 6 AM RESIDENCY DIRECTOR 06/26/2024 12:39 AM RESIDENCY DIRECTOR us Patricia Bryant MD LAB BLOOD ORDERABLES Final Res ult Performing Organization Address City/[facility]/ZIP Co de Phone Number [facility] [place] [address] * POCT glucose (06/23/2024 11:36 AM RESIDENCY DIRECTOR) [facility] Glucose, POC 95 70 - 199 mg/dL Blood 06/23/2024 11:3 6 AM RESIDENCY DIRECTOR 06/23/2024 11:36 AM RESIDENCY DIRECTOR us Patricia Bryant MD LAB POCT ORDERABLES - DEVICE F inal Result Performing Organization Address [facility] de Phone Number [facility] [place] [address] * (ABNORMAL) CBC without differential (06/23/2024 9:07 AM RESIDENCY DIRECTOR) [facility] WBC 4.7 3.8 - 9.9 K/cumm Hgb 12.5(L) 13.0 - 17.5 g/dL [facility] Hct 37.4(L) 38.9 - 50.3 % [facility] Plt 145(L) 150 - 400 K/cumm [facility] MPV 12.6(H) 9.1 - 12.3 fL [facility] RBC 3.94(L) 4.30 - 5.80 M/cumm [facility] MCV 94.9 81.3 - 96.4 fL [facility] MCH 31.7 27.1 - 33.3 pg [facility] MCHC 33.4 32.3 - 35.7 g/dL [facility] RDW CV 12.9 11.1 - 14.9 % [facility] RDW SD 45.1 35.7 - 48.1 fL [facility] NRBC abs 0.00 0.00 - 0.01 K/cumm [facility] Blood 06/23/2024 9:07 AM RESIDENCY DIRECTOR 06/23/2024 9:28 AM RESIDENCY DIRECTOR Patricia Bryant MD LAB BLOOD ORDERABLES Final Res ult Performing Organization Address [facility] Co de Phone Number [facility] [place] [address] * eGFR (06/23/2024 9:00 AM RESIDENCY DIRECTOR) eGFR >90 >=60 mL/min/1. 73 m2 Comment: [...] last reviewed 2021. Blood 06/23/2024 9:00 AM RESIDENCY DIRECTOR 06/23/2024 10:59 AM RESIDENCY DIRECTOR Patricia Bryant MD LAB BLOOD ORDERABLES Final Res ult [facility] [place] [employer] [address] * Phosphorus (06/23/2024 9:00 AM RESIDENCY DIRECTOR) Phosphorus, pl 2.3 2.3 - 4.5 mg/dL Blood 06/23/2024 9:00 AM RESIDENCY DIRECTOR 06/23/2024 10:59 AM RESIDENCY DIRECTOR us Patricia Bryant MD LAB BLOOD ORDERABLES Final Res ult Performing Organization Address [facility] Co de Phone Number [facility] [place] [address] * Magnesium (06/23/2024 9:00 AM RESIDENCY DIRECTOR) Pathologist [facility] [place] Magnesium 1.7 1.4 - 2.5 mg/dL Blood 06/23/2024 9:00 AM RESIDENCY DIRECTOR 06/23/2024 10:59 AM RESIDENCY DIRECTOR us Patricia Bryant MD LAB BLOOD ORDERABLES Final Res ult Performing Organization Address [facility] [place] [address] * Vancomycin level trough (06/23/2024 9:00 AM RESIDENCY DIRECTOR) Pathologist [facility] [place] Vancomycin trough 15.2 10.0 - 20.0 mcg/mL Blood 06/23/2024 9:00 AM RESIDENCY DIRECTOR 06/23/2024 10:59 AM RESIDENCY DIRECTOR Patricia Bryant MD LAB BLOOD ORDERABLES Final Res ult Performing Organization Address [facility] [place] [address] * (ABNORMAL) Basic metabolic panel (06/23/2024 9:00 AM RESIDENCY DIRECTOR) Pathologist [facility] [place] Sodium 143 135 - 145 mmol/L Potassium, pl 3.7 3.3 - 4.9 mmol/L [facility] Chloride 108 97 - 110 mmol/L [facility] CO2 28 22 - 32 mmol/L [facility] Anion gap 7 2 - 15 mmol/L [facility] BUN 3(L) 6 - 25 mg/dL [facility] Creatinine 0.50(L) 0.80 - 1.30 mg/dL [facility] Glucose 271(H) 70 - 199 mg/dL [facility] Comment: Interpretive Data Fasting glucose >/= [...] Calcium 9.0 8.5 - 10.3 mg/dL [facility] Blood 06/23/2024 9:00 AM RESIDENCY DIRECTOR 06/23/2024 10:59 AM RESIDENCY DIRECTOR us Patricia Bryant MD LAB BLOOD ORDERABLES Final Res ult [facility] Department [place] [address] * IR G To GJ-Tube Replacement (06/22/2024 1:24 PM RESIDENCY DIRECTOR) Anatomical Region Laterality Modality Body N/A X-Ray Angiograph y 06/22/2024 1:47 PM RESIDENCY DIRECTOR Impressions 06/22/2024 4:13 PM RESIDENCY DIRECTOR Successful percutaneous 18 Fr 45 cm gastrojejunostomy [...] Sean Hillman M.D. Narrative 06/22/2024 4:13 PM RESIDENCY DIRECTOR EXAMINATION: GASTROJEJUNOSTOMY TUBE EXCHANGE HISTORY/INDICATION: 64 yo [...] procedure. TECHNIQUE: Prior to beginning the procedure, Maurice Protocol was performed to confirm the patient's [...] procedure. TECHNIQUE: Prior to beginning the procedure, Maurice Protocol was performed to confirm the patient's [...] C. difficile testing Stool (06/21/2024 11:11 AM RESIDENCY DIRECTOR) [facility] Result Negative Negative Toxin Result Negative Negative [facility] C. diff result Negative, free toxin Negative, free toxin [facility] C. diff interp Negative for toxigenic Clostridioides (Clostridium) difficile. Analysis was performed using a glutamate dehydrogenase antigen detection assay combined with a C. difficile toxin detection assay. [facility] Stool 06/21/2024 11:1 1 AM RESIDENCY DIRECTOR 06/21/2024 12:55 PM RESIDENCY DIRECTOR Narrative [facility] - 06/21/2024 2:38 PM RESIDENCY DIRECTOR Testing for C. difficile is not recommended within 4 days of a negative result, 10 days of a positive, or 24 hours after laxative administration. If this order is clinically indicated, contact the lab and enter the passcode to complete this order.->[id number] Patricia Bryant MD LAB MICROBIOLOGY - GENERAL ORD ERABLES Final Result Performing Organization Address [facility] [place] [address] * Infection Prevention VRE Culture Stool (06/21/2024 11:10 AM RESIDENCY DIRECTOR) Report Final Report: Negative Stool 06/21/2024 11:1 0 AM RESIDENCY DIRECTOR 06/21/2024 2:41 PM RESIDENCY DIRECTOR Narrative [facility] - 06/23/2024 11:15 PM RESIDENCY DIRECTOR Surveillance culture for Infection Prevention purposes only; results indicate colonization, not infection requiring treatment. Testing performed by [facility] ([phone]). Patricia Bryant MD LAB MICROBIOLOGY - GENERAL ORD ERABLES Final Result Performing Organization Address [facility] Co de Phone Number [facility] Department [place] [employer] [place] [address] * Vancomycin level trough Draw trough 30 minutes prior to 4th dose. (06/21/2024 7:16 AM RESIDENCY DIRECTOR) [facility] Vancomycin trough 16.8 10.0 - 20.0 mcg/mL Blood 06/21/2024 7:1 6 AM RESIDENCY DIRECTOR 06/21/2024 7:27 AM RESIDENCY DIRECTOR Narrative [facility] - 06/21/2024 8:10 AM RESIDENCY DIRECTOR Draw trough 30 minutes prior to 4th dose. Patricia Bryant MD LAB BLOOD ORDERABLES Final Res ult Performing Organization Address [facility] Co de Phone Number [facility] [place] [address] * eGFR (06/21/2024 5:03 AM RESIDENCY DIRECTOR) Pathologist [facility] [place] eGFR >90 [...] last reviewed 2021. Blood 06/21/2024 5:03 AM RESIDENCY DIRECTOR 06/21/2024 5:14 AM RESIDENCY DIRECTOR us Patricia Bryant MD LAB BLOOD ORDERABLES Final Res ult [facility] Department [place] [address] * Differential, auto (06/21/2024 5:03 AM RESIDENCY DIRECTOR) Neutrophil abs 1.7 1.5 - 6.5 K/cumm Imm gran abs 0.0 0.0 - 0.1 K/cumm [facility] Lymphocyte abs 1.7 0.8 - 3.3 K/cumm [facility] Monocyte abs 0.6 0.2 - 0.8 K/cumm [facility] Eosinophil abs 0.3 0.0 - 0.5 K/cumm [facility] Basophil abs 0.0 0.0 - 0.1 K/cumm [facility] Neutrophil pct 38.8 % [facility] Comment: Interpretive Data Percent cell count reference ranges are not reported, since discordance with absolute values may lead to misinterpretation of CBC data. Current Interpretive Data was last revised on 2017. Imm gran pct 0.2 % [facility] Comment: Interpretive Data Percent cell count reference ranges are not reported, since discordance with absolute values may lead to misinterpretation of CBC data. Current Interpretive Data was last revised on 2017. Lymphocyte pct 40.5 % [facility] Comment: Interpretive Data Percent cell count reference ranges are not reported, since discordance with absolute values may lead to misinterpretation of CBC data. Current Interpretive Data was last revised on 2017. Monocyte pct 13.4 % [facility] Comment: Interpretive Data Percent cell count reference ranges are not reported, since discordance with absolute values may lead to misinterpretation of CBC data. Current Interpretive Data was last revised on 2017. Eosinophil pct 6.6 % [facility] Comment: Interpretive Data Percent cell count reference ranges are not reported, since discordance with absolute values may lead to misinterpretation of CBC data. Current Interpretive Data was last revised on 2017. Basophil pct 0.5 % [facility] Comment: Interpretive Data Percent cell count reference ranges are not reported, since discordance with absolute values may lead to misinterpretation of CBC data. Current Interpretive Data was last revised on 2017. Blood 06/21/2024 5:03 AM RESIDENCY DIRECTOR 06/21/2024 5:14 AM RESIDENCY DIRECTOR us Patricia Bryant MD LAB BLOOD ORDERABLES Final Res ult [facility] Department [place] [address] * (ABNORMAL) CBC with auto differential (06/21/2024 5:03 AM RESIDENCY DIRECTOR) WBC 4.3 3.8 - 9.9 K/cumm Hgb 11.6(L) 13.0 - 17.5 g/dL [facility] Hct 34.5(L) 38.9 - 50.3 % [facility] Plt 132(L) 150 - 400 K/cumm [facility] MPV 11.3 9.1 - 12.3 fL [facility] RBC 3.53(L) 4.30 - 5.80 M/cumm [facility] MCV 97.7(H) 81.3 - 96.4 fL [facility] MCH 32.9 27.1 - 33.3 pg [facility] MCHC 33.6 32.3 - 35.7 g/dL [facility] RDW CV 13.4 11.1 - 14.9 % [facility] RDW SD 48.0 35.7 - 48.1 fL [facility] NRBC abs 0.00 0.00 - 0.01 K/cumm [facility] Blood 06/21/2024 5:03 AM RESIDENCY DIRECTOR 06/21/2024 5:14 AM RESIDENCY DIRECTOR us Patricia Bryant MD LAB BLOOD ORDERABLES Final Res ult Performing Organization Address City/[facility]/ZIP Co de Phone Number [facility] Department [place] [address] * Phosphorus (06/21/2024 5:03 AM RESIDENCY DIRECTOR) Phosphorus, pl 3.1 2.3 - 4.5 mg/dL Blood 06/21/2024 5:03 AM RESIDENCY DIRECTOR 06/21/2024 5:14 AM RESIDENCY DIRECTOR us Patricia Bryant MD LAB BLOOD ORDERABLES Final Res ult Performing Organization Address [facility] Co de Phone Number [facility] Department [place] [address] * Magnesium (06/21/2024 5:03 AM RESIDENCY DIRECTOR) Magnesium 1.9 1.4 - 2.5 mg/dL Blood 06/21/2024 5:03 AM RESIDENCY DIRECTOR 06/21/2024 5:14 AM RESIDENCY DIRECTOR us Patricia Bryant MD LAB BLOOD ORDERABLES Final Res ult Performing Organization Address City/[facility]/ZIP Co de Phone Number [facility] [place] [address] * (ABNORMAL) Comprehensive metabolic panel (06/21/2024 5:03 AM RESIDENCY DIRECTOR) Sodium 145 135 - 145 mmol/L Potassium, pl 3.4 3.3 - 4.9 mmol/L [facility] Chloride 112(H) 97 - 110 mmol/L [facility] CO2 27 22 - 32 mmol/L [facility] Anion gap 6 2 - 15 mmol/L [facility] BUN 9 6 - 25 mg/dL [facility] Creatinine 0.57(L) 0.80 - 1.30 mg/dL [facility] Glucose 106 70 - 199 mg/dL [facility] Comment: Interpretive Data Fasting glucose >/= [...] 2022. Calcium 8.6 8.5 - 10.3 mg/dL [facility] Bilirubin, total 0.2 0.1 - 1.2 mg/dL [facility] Protein, pl 5.6(L) 6.5 - 8.5 g/dL [facility] Albumin 2.7(L) 3.5 - 5.0 g/dL [facility] Alk phos 61 40 - 130 Units/L [facility] ALT 15 7 - 55 Units/L [facility] AST 25 10 - 50 Units/L [facility] Blood 06/21/2024 5:03 AM RESIDENCY DIRECTOR 06/21/2024 5:14 AM RESIDENCY DIRECTOR us Patricia Bryant MD LAB BLOOD ORDERABLES Final Res ult [facility] [place] [address] * TNI with LIPID PANEL (08/24/2017 4:57 PM CDT) Troponin I < 0.300 0.000 - 0.300 ng/mL Comment: Reference using JERRICA Chemiluminescence Negative: Repeat in 4-6 hours as indicated. Triglycerides 34 0 - 199 mg/dL Comment:12 hr pc highly avani mmended for Triglyceride Cholesterol 129 0 - 199 mg/dL Comment: Borderline: 200-239 High Risk: >239 HDL Cholesterol 71 mg/dL 8 5:30 PM T [facility] HISTORICAL RESULTS Comment: Reference Ranges: Males: >=40 [...] 4:59 PM CDT Narrative [facility] HISTORICAL RESULTS - 08/24/2017 5:30 PM CDT Comment Glucose, blood, POC Everett Mejias LAB BLOOD ORDERABLES Lulu coley Result [facility] HISTORICAL RESULTS from Last 3 Months or Most Recently Relevant to Health Maintenance Additional Health Concerns Infection Onset Date Last Indicated 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 Source: [facility] [employer]. 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 Source: [facility] [employer]. 09/18/22 Acinetobacter osh 09/18/[address] [facility] Advance Directives For more information, please contact: [phone] Documents on File Type Date Recorded Patient Regulatory Auditor Expl anation ADVANCE DIRECTIVE 10/08/2012 12:00 AM [facility] [employer] [employer] * Full Code (Latest Code Status on File) Date Activated Date Inactivated Comments 06/12/2024 3:22 PM 06/28/2024 9:30 PM * Full Code Date Activated Date Inactivated Comments 12/10/2020 9:05 AM 12/13/2020 10:44 PM Care Teams Stripper Color Relationship Specialty Start Date End Date Marielena Smallwood MD [address] [place] [place] [address] PCP - General Family Practice 07/08/24
--- OUTSIDE RECORDS SUMMARY | 2024-09-19 08:09 | XMS_ITS | Encounter Summary ---
Author Organization [facility] - [facility] Address [address] [place] [address] Care Team Providers Care Small Piece Cutter Name Role Phone Frank Toure MD Unavailable Joyce Luevano NP Primary Care Provider Unavaila Marielena Adame MD Primary Care Provider [phone] Encounter Details Date Type Department Care Team (Late st Contact Info) Description 06/16/2022 MyCRelayFoodst Message Enc [facility] Medical Group Family Medicine - [address] [address] Joyce Luevano, DISTRICT ASSOCIATE JUDGE [employer] Social History Tobacco Use Types [...] Coronavirus/COVID-19? No / Unsure 06/17/2022 10:38 AM MID LEVEL GAME DESIGNER documented as of this encounter Functional Status [...] in writing. She states to fax to [phone]. Will send letter to them. LEVEL GAME DESIGNER * Yonatan Rodriguez RN - 06/16/2022 12:50 PM CST Please see note. Thanks LEVEL GAME DESIGNER documented in this encounter Plan of Treatment Not on file documented as of this encounter Visit Diagnoses Not on filedocumented in this encounter Care Teams Small Piece Cutter Relationship Specialty Start Date End Date Joyce Luevano NP [address] [place] [address] PCP - General NURSE PRACTITIONER 01/14/20 10/26/23 Marielena Smallwood MD [address] [place] [address] PCP - General FAMILY PRACTICE 10/27/23 Frank Toure MD [address] [place] [address] [employer]ivo Valve Steamer CARDIOVASCULAR DISEASE 05/30/16 documented as of this encounter
--- OUTSIDE RECORDS SUMMARY | 2024-09-19 08:09 | XMS_ITS | Encounter Summary ---
Author Organization [facility] - [facility] Address [address] [place] [address] Care Team Providers Care Movie Machine Operator Name Role Phone Frank Toure MD Unavailable Joyce Luevano NP Primary Care Provider Unavaila Marielena Adame MD Primary Care Provider [phone] Encounter Details Date Type Department Care Team (Late st Contact Info) Description 03/09/2022 OneTagt Message Enc [facility] Medical Group Family Medicine - [address] [address] Joyce Luevano, ELECTRODE CLEANING MACHINE OPERATOR Update on Bi Tabor Social History Tobacco [...] in this encounter Progress Notes * Yonatan Rodirguez RN - 03/09/2022 10:09 AM CDT FYI * Yonatan Rodriguez RN - 03/09/2022 8:55 AM CDT See note. Thanks documented in this encounter Plan of Treatment Not on file documented as of this encounter Visit Diagnoses Not on filedocumented in this encounter Care Teams Movie Machine Operator Relationship Specialty Start Date End Date Joyce Luevano NP [address] [place] [address] PCP - General NURSE PRACTITIONER 01/14/20 10/26/23 Marielena Smallwood MD [address] [place] [address] PCP - General FAMILY PRACTICE 10/27/23 Frank Toure MD [address] [place] [address] [employer] Project Financial Analyst CARDIOVASCULAR DISEASE 05/30/16 documented as of this encounter
--- OUTSIDE RECORDS SUMMARY | 2024-09-19 08:09 | XMS_ITS | Encounter Summary ---
Author Organization [facility] - [facility] Address [address] [place] [address] Care Team Providers Care Repairer Evaporator Name Role Phone Frank oTure MD Unavailable Joyce Luevano NP Primary Care Provider Unavaila Marielena Adame MD Primary Care Provider [phone] Encounter Details Date Type Department Care Team (Late st Contact Info) Description 03/08/2022 Whirlpoolt Message Enc [facility] Medical Group Family Medicine - [address] [address] Joyce Luevano, BOUCHRA Vascular doctor [...] filedocumented in this encounter Care Teams Repairer Evaporator Relationship Specialty Start Date End Date Joyce Luevano NP [address] [place] [address] PCP - General NURSE PRACTITIONER 01/14/20 10/26/23 Marielena Smallwood MD [address] [place] [address] PCP - General FAMILY PRACTICE 10/27/23 Frank Toure MD [address] [place] [address] [employer]ivo Forging Roll Operator CARDIOVASCULAR DISEASE 05/30/16 documented as of this encounter
--- OUTSIDE RECORDS SUMMARY | 2024-09-19 08:09 | XMS_ITS | Encounter Summary ---
Author Organization [facility] - [facility] Address [address] [place] [address] Care Team Providers Care Glass Cutting Machine Operator Name Role Phone Frank Toure MD Unavailable Joyce Luevano NP Primary Care Provider Unavaila Marielena Adame MD Primary Care Provider [phone] Encounter Details Date Type Department Care Team (Late st Contact Info) Description 03/15/2022 [email or web address] Message Enc [facility] Medical Group Family Medicine - [address] [address] Joyce Luevano, INFANTRY ASSAULTMAN Bi Tabor Social History Tobacco Use Types [...] on filedocumented in this encounter Care Teams Glass Cutting Machine Operator Relationship Specialty Start Date End Date Joyce Luevano NP [address] [place] [address] PCP - General NURSE PRACTITIONER 01/14/20 10/26/23 Marielena Smallwood MD [address] [place] [address] PCP - General FAMILY PRACTICE 10/27/23 Frank Toure MD [address] [place] [address] Chivo Archival Studies Professor CARDIOVASCULAR DISEASE 05/30/16 documented as of this encounter
--- OUTSIDE RECORDS SUMMARY | 2024-09-19 08:09 | XMS_ITS | Encounter Summary ---
Author Organization [facility] - [facility] Address [address] [place] [address] Care Team Providers Care Doorshaker Name Role Phone Frank Toure MD Unavailable oJyce Luevano NP Primary Care Provider Unavaila Marielena Adame MD Primary Care Provider [phone] Encounter Details Date Type Department Care Team (Late st Contact Info) Description 05/11/2022 LiveQoSt Message Enc [facility] Medical [facility] Family Medicine - [address] [address] Joyce Luevano, BOUCHRA Pat appointment [...] on filedocumented in this encounter Care Teams Doorshaker Relationship Specialty Start Date End Date Joyce Luevano NP [address] [place] [address] PCP - General NURSE PRACTITIONER 01/14/20 10/26/23 Marielena Smallwood MD [address] [place] [address] PCP - General FAMILY PRACTICE 10/27/23 Frank Tuore MD [address] [place] [address] [place] Manager Of Finance CARDIOVASCULAR DISEASE 05/30/16 documented as of this encounter
[2024-09-19 08:47] VITALS: BP 151/90; PULSE 69; RESP 18; O2SAT 100
== END 2024-09-19 09:14 ==
LOC: ANHED 08:00
PROVIDERS: Emergency Provider Emergency Medicine; PCP Internal Medicine
DX: T85.528A Displacement of other gastrointestinal prosthetic devices, implants and grafts, initial encounter (principal); J44.9 Chronic obstructive pulmonary disease, unspecified; F03.90 Unspecified dementia, unspecified severity, without behavioral disturbance, psychotic disturbance, mood disturbance, and anxiety; G40.909 Epilepsy, unspecified, not intractable, without status epilepticus; Z86.718 Personal history of other venous thrombosis and embolism; I69.991 Dysphagia following unspecified cerebrovascular disease; I69.954 Hemiplegia and hemiparesis following unspecified cerebrovascular disease affecting left non-dominant side; I69.920 Aphasia following unspecified cerebrovascular disease; R13.10 Dysphagia, unspecified
CPT/HCPCS: 43762; 99282

== ENCOUNTER 2024-10-18 14:16 | Inpatient (IN) | payer OTHER, SELFPAY ==
[2024-10-18] VITALS (9 sets, daily range): BP systolic 165–208; BP diastolic 92–111; PULSE 94–112; RESP 16–22; TEMP 36.8–37; O2SAT 96–100; BMI 22.9
--- NOTE | ~2024-10-18 | CT_ITS ---
CLINICAL INDICATION: Pancreatitis COMPARISON: 10/18/2024 and dating back to 06/07/2024. TECHNIQUE: Multiple contiguous axial images of the abdomen and pelvis were performed without the admi nistration of intravenous contrast The dose-length product (DLP) was 940.62 mGy-cm. Automated exposure control and iterative reconstruction technique were employed. FINDINGS/OBSERVATIONS: Visualized lower thorax: Interval development of a left-sided pleural effusion with adjacent consolidation, not present on the 10/18/2024 examination. Redemonstration of a small right-sided pleural effusion with adjacent compressive atelectasis. Within the inferior most segment of the left upper lobe is a irregular focus of soft tissue attenuati on, new from the 06/07/2024 examination for which attention on follow-up is needed. Remainder of the visualized bilateral lung bases are clear. The heart is borderline enlarged, without pericardial effusion. Liver: The liver demonstrates homogeneous attenuation and is not enlarged. Gallbladder and biliary system: The gallbladder is only minimally distended, with surrounding inflammatory change, likely reactive fr om adjacent pancreatic inflammation, and recent distention from percutaneous gastrostomy balloon obst ruction. Pancreas: Limited evaluation of the pancreas secondary to the lack of intravenous contrast. Peripancreatic infl ammation is noted, increased from previous examination on 10/18/2024 consistent with patient's history . Spleen: The spleen demonstrates homogeneous attenuation and is not enlarged. Kidneys: Bilateral nonobstructing renal calculi, the largest on the right measuring 4.4 mm in the low er pole, and measuring 5.9 mm in the upper pole on the left. The remainder of the bilateral kidneys are otherwise unremarkable, and without hydronephrosis. Adrenal glands: Unremarkable. Gastrointestinal tract: Unremarkable, without dilatation, mural thickening or diverticulosis. Retained oral contrast (possibly from confirmation of gastric tube reinsertion on 09/17/2024) is prese nt within the colon and rectum. Percutaneous gastrostomy balloon is now in the appropriate position, distended along the undersurface of the anterior abdominal wall, an interval change from prior examinations. Appendix: The contrast and fluid-filled appendix is of normal caliber (axial series, images 152 through 161). Vasculature: Trace calcified atherosclerotic disease. Lymph nodes: No pathologically enlarged or morphologically suspicious lymph nodes within the retroperitoneum or at the root of the mesentery. Pelvic structures: The bladder is decompressed with a Jensen catheter, limiting its evaluation. The prostate gland is not enlarged. Body wall and musculoskeletal: Age appropriate degenerative disease within the lower thoracic and lumbosacral spines. IMPRESSION: Findings consistent with patient's known history of acute pancreatitis. The gallbladder is now decompressed. Rather than percutaneous cholecystostomy with cholangiography, would recommend MRCP (in this patient with normal renal function) for further evaluation of the biliary tree. Reviewed, dictated and finalized at location A.
--- NOTE | ~2024-10-18 | CT_ITS ---
CLINICAL INDICATION: Nausea vomiting and abdominal distention COMPARISON: 06/07/2024. TECHNIQUE: Multiple contiguous axial images of the abdomen and pelvis were performed following the ad ministration of with 100 mL Omnipaque-350 intravenous contrast The dose-length product (DLP) was 873.03 mGy-cm. Automated exposure control and iterative reconstruction technique were employed. FINDINGS/OBSERVATIONS: Visualized lower thorax: Bibasilar atelectasis, unchanged from prior. The heart is enlarged without pericardial effusion. Small hiatal hernia is present. Liver: The liver demonstrates homogeneous enhancement and is not enlarged. Gallbladder and biliary system: The gallbladder is markedly distended with surrounding free fluid and layering stones. Pancreas: The pancreas enhances homogeneously without ductal dilatation. Spleen: The spleen enhances homogeneously and is not enlarged. Kidneys: The bilateral kidneys enhance symmetrically without hydronephrosis or renal calculi. Adrenal glands: Unremarkable. Gastrointestinal tract: The retention balloon of the percutaneous gastrostomy has migrated to the distal stomach (rather than along the undersurface of the anterior abdominal wall). Appendix: The air-filled appendix is of normal caliber (axial series, images 138 through 145). Vasculature: Unremarkable. Lymph nodes: No pathologically enlarged or morphologically suspicious lymph nodes within the retroperitoneum or at the root of the mesentery. Pelvic structures: The bladder is distended, and otherwise unremarkable. The prostate gland is not enlarged. Body wall and musculoskeletal: Small fat-containing umbilical hernia. Anterior wedge compression of the vertebral body of L3, unchanged from prior. Remaining vertebral bodies are unremarkable. IMPRESSION: Findings consistent consistent with acute cholecystitis, as detailed above. Malpositioning of the balloon for the percutaneous gastrostomy, as detailed above. Reviewed, dictated and finalized at location A. IMPRESSION: Findings consistent consistent with acute cholecystitis, as detailed above. Malpositioning of the balloon for the percutaneous gastrostomy, as detailed abo ve.
--- NOTE | ~2024-10-18 | MR_ITS ---
EXAMINATION: MR MRCP wo/w con/w 3D wo ind DATE: 10/27/2024 14:07 INDICATION: Choledocholithiasis. TECHNIQUE: Magnetic resonance imaging (MRI) of the abdomen was performed without and with 15 mL Multi fiona intravenous contrast. Sequences included coronal T2-weighted SS-FSE, coronal T2-weighted FS SS- FSE, coronal T2-weighted FS FIESTA, axial T2-weighted FS FIESTA, axial T2-weighted FIESTA, sagittal T 2-weighted SS-FSE, axial T1-weighted dual-echo FSPGR, axial T2-weighted SS-FSE, axial T1-weighted LAV A, axial T2-weighted STIR FSE. Thick-slab T2-weighted FRFSE-XL images were obtained for magnetic reso nance cholangiopancreatography (MRCP). Rotating maximum intensity projection 3-D reconstructions of t he volumetric data were created by the technologist. Postcontrast sequences included a time course of axial T1-weighted LAVA. COMPARISON: CT abdomen and pelvis dated 10/23/2024 FINDINGS: Percutaneous gastrostomy tube bulb within the body the stomach. Heart size is normal. No pericardial effusion. Small bilateral pleural effusions with consolidation in the dependent lower lobes. 4 mm T2 hyperintense nonenhancing cyst in the medial segment of the left hepatic lobe. Gallbladder, spleen, b ilateral adrenal glands and kidneys are normal. Normal caliber common bile duct measuring 3-4 mm in m aximal diameter with no choledocholithiasis, strictures or impinging masses. No intrahepatic biliary ductal dilation. Mild retroperitoneal edema centered about the head and uncinate process of the pancreas suggestive of acute interstitial pancreatitis. There is mild dilation the main pancreatic duct which measures up t o 4 mm in diameter at the neck of the pancreas. There are few tiny dilated sidebranches at the tail t he pancreas suggesting sequela of chronic pancreatitis. There is pancreas divisum with the main pancr eatic duct draining through a large accessory pancreatic ducts entering into the minor papilla. No di screte abscess, pseudocyst or related acute peripancreatic fluid collections. Spleen, bilateral adrenal glands and kidneys are normal. Visualized portions of bowels are unremarkab le. No pathologically enlarged abdominal or upper pelvic lymphadenopathy. Mild lumbar dextrocurvature with moderate lower lumbar spondylosis. IMPRESSION: 1. Acute interstitial pancreatitis. The pancreas which may be related to normal anatomic variant panc reas divisum. 2. Normal gallbladder and intra and extrahepatic bile ducts with no cholelithiasis/choledocholithiasi s or biliary ductal dilation. 3. Small bilateral pleural effusions with dependent consolidation the bilateral lower lobes which cou ld represent atelectasis or pneumonia. 4. Percutaneous gastrostomy tube bulb in the distal body the stomach. Reviewed, dictated and finalized at location A. IMPRESSION: 1. Acute interstitial pancreatitis. The pancreas which may be related to normal anatomic variant pancreas divisum. 2. Normal gallbladder and intra and extrahepatic bile ducts with no cholelithia sis/choledocholithiasis or biliary ductal dilation. 3. Small bilateral pleural effusions with dependent consolidation the bilateral lower lobes which could represent atelectasis or pneumonia. 4. Percutaneous gastrostomy tube bulb in the distal body the stomach.
--- NOTE | ~2024-10-18 | XR_ITS ---
Exam: Abdomen 1V HISTORY: decreased bowel motility COMPARISON: 10/21/2024 TECHNIQUE: Supine images of the abdomen FINDINGS: Decreased air opacification of the colon, when compared with previous days radiograph. No air is identified within the rectum. There is no free air or deep sulci. No pathologic calcifications are seen. Lung bases are not included. IMPRESSION: Decreased air opacification of the colon, when compared with previous days examination. No air is frances ntified within the rectum. Reviewed, dictated and finalized at location A. IMPRESSION: Decreased air opacification of the colon, when compared with previous days exam ination. No air is identified within the rectum.
--- NOTE | ~2024-10-18 | XR_ITS ---
Exam: Abdomen 1V HISTORY: distended abdomen COMPARISON: None. TECHNIQUE: Supine images of the abdomen FINDINGS: Prominent air opacified loops of colon are identified. No air is identified within the rectum. Calcified arterial vasculature is noted. Lung bases are not included. Bones and soft tissues are unremarkable. IMPRESSION: Distended air opacified colon without air in the rectum suggesting fecal impaction for which cross-se ctional imaging versus clinical correlation is suggested. Reviewed, dictated and finalized at location A. IMPRESSION: Distended air opacified colon without air in the rectum suggesting fecal impact ion for which cross-sectional imaging versus clinical correlation is suggested.
--- NOTE | ~2024-10-18 | US_ITS ---
Limited Abdominal Sonogram: Real-time sonographic imaging of the right upper quadrant was performed. Clinical History: Cholecystitis Findings: The visualized liver appears normal with no evidence of mass lesion or bile duct dilatatio n. Main portal vein demonstrates normal direction of flow. The gallbladder is well distended, and grace ears normal with no evidence of gallstone or wall thickening. The common bile duct measures 6 mm. Th e pancreas, aorta, IVC are largely obscured by bowel gas shadowing/body habitus. Impression: Limited exam due to bowel gas shadowing and body habitus. No definite evidence for cholecystitis. No significant abnormality identified. Reviewed, dictated and finalized at location . Impression: Limited exam due to bowel gas shadowing and body habitus. No definite evidence for cholecystitis. No significant abnormality identified.
--- NOTE | ~2024-10-18 | CT_ITS ---
CLINICAL INDICATION: Adjustment of percutaneous gastrostomy balloon. COMPARISON: Contrast-enhanced CT examination of the abdomen and pelvis performed approximately 6 hour s earlier. TECHNIQUE: Computed tomography (CT) of the abdomen was performed without intravenous contrast. The do se-length product was 759.92 mGy-cm. FINDINGS/OBSERVATIONS: Redemonstration of a percutaneous gastrostomy with its balloon extending to the level of the pylorus, rather than immediately beneath the undersurface of the anterior abdominal wall for which withdrawal of 4.9 cm (with the balloon continuously inflated) is recommended for optimal radiographic placement . Interval development of significant inflammatory change within the lesser sac Global enlargement of t he pancreas, when compared with previous study, likely secondary to hypovolemia on prior examination, now with improved volume status. Redemonstration of gallbladder distention and surrounding free fluid, unchanged from prior. IMPRESSION: Findings consistent with (likely) gallstone pancreatitis, as detailed above. Imaging findings are now much clearer after fluid resuscitation. Redemonstration of a percutaneous gastrostomy with its balloon extending to the level of the pylorus, rather than immediately beneath the undersurface of the anterior abdominal wall for which withdrawal of 4.9 cm (with the balloon continuously inflated) is recommended for optimal radiographic placement . Reviewed, dictated and finalized at location A. IMPRESSION: Findings consistent with (likely) gallstone pancreatitis, as detailed above. Im aging findings are now much clearer after fluid resuscitation. Redemonstration of a percutaneous gastrostomy with its balloon extending to the level of the pylorus, rather than immediately beneath the undersurface of the anterior abdominal wall for which withdrawal of 4.9 cm (with the balloon contin uously inflated) is recommended for optimal radiographic placement.
--- OUTSIDE RECORDS SUMMARY | 2024-10-18 15:24 | XMS_ITS | Referral Summary ---
Author Organization [facility] Address [address] [place] [address] Care Team Providers Care National Expansion Recruiter Name Role Phone Marielena Smallwood MD Primary [...] 25 Active cloBAZam (ONFI) 2.5 mg/mL suspensionIndicati ons:[place] Syndrome Treatment Adjunct Administer 4 mL (10 [...] 06/28/2024 Assessment & Plan (06/28/2024 11:42 AM CAKE ICER): Now back on full TF's sugars running mildly high. Monitor with q4 accuchecks and SSI. Hypophosphatemia 06/27/2024 Assessment & Plan (06/28/2024 11:44 AM CAKE ICER): <0.7 ? 2/2 refeeding syndrome. Started on neutraphos 2pkg QID 06/26. Still Phos<0.7 06/27. Tx with IV NaPhos 30mmoles and cont per tube replacement and monitor closely. -06/28: Phos=3.3, reduce nuetraphos to 1 PKG BID and monitor History of DVT (deep vein thrombosis) 06/26/2024 Assessment & Plan (06/26/2024 1:32 PM CAKE ICER): -On anticoagulation with Eliquis 5 mg po BID for hx of DVT -per chart review hx of Left Subclavian vein DVT diagnosed 08/01/23 H/O: GI bleed 06/25/2024 Assessment & Plan (06/26/2024 1:32 PM CAKE ICER): - recent admission at [facility] ( 06-07-24 [...] 06/25/2024 Assessment & Plan (06/26/2024 1:36 PM CAKE ICER): Tracheostomy dependence, has a Shiley #4 cuffed. Pt followed at [facility], per notes trach in place for pulmonary toilet due to his copious secretions and ongoing aspiration of his secretions. -needing frequent suctioning -sats stable on 28% FIO2 by HHTC -Was getting VEST at [facility] Low grade fever 06/20/2024 Assessment & Plan (06/26/2024 1:34 PM CAKE ICER): Low-grade fever and tachycardia, softer BP after [...] 06/17/2024 Assessment & Plan (06/28/2024 11:43 AM CAKE ICER): -patient at admission with a G tube, was getting continous tube feedings at [facility] and not tolerating, -was changed [...] tube fell off and pt had 18 [place] G tube placed at [facility] ED on 04/21/24 (records on care everywhere)and after that he has not tolerated well tube feedings per discussion with his sister Ms Hilliard,Adriane [phone] POA - consulted IR 06-20-24 for conversion [...] goal 06/25, adjust FWF per hydration status, cerner analyst to follow up -On full TF's-osmolite 1.5. Phos repleted. Copious oral secretions 06/13/2024 Assessment & Plan (06/26/2024 1:29 PM CAKE ICER): Patient on chronic glycopyrrolate due to secretions, held at admission 2/ to potential for constipation with plan to add back when he's had a bowel movements -resume on 06-19- hold on 06-20 due to somnolence. Suction PRN - restart glycopyrrolate 1mg BID 06/26 and monitor Abdominal pain 06/12/2024 Assessment & Plan (06/26/2024 1:23 PM CAKE ICER): -p/w abdominal distention from [facility] to ED on 06-12 ,reported biliary emesis per intermediate (approximately 300 cc) , not associated fevers or change in bowel habits. Feeding tube placed to gravity drainage in ED H&P notes regular bowel movements. CT scan on 06-12 in ED with stool in the rectum and sigmoid. [place] likely constipation contributing to the patient's abdominal [...] 06/12/2024 Assessment & Plan (06/26/2024 12:08 AM CAKE ICER): Complicated by left LE AKA. History of CVA (cerebrovascular accident) 2020 Assessment & Plan (06/26/2024 1:32 PM CAKE ICER): - hx of RT parietal CVA- hx of dementia Cont asa and statin Essential hypertension 12/11/2020 Assessment & Plan (06/26/2024 1:30 PM CAKE ICER): - on metoprolol and norvasc, held with soft BP 06-19 - resume metoprolol 06-21 -resume amlodipine 06-22 - Monitor Hyperlipidemia 12/11/2020 Assessment & Plan (06/12/2024 3:47 PM CAKE ICER): - Continue home statin Seizure 12/10/2020 Assessment & Plan (06/26/2024 1:36 PM CAKE ICER): History of seizure disorder secondary to traumatic brain injury. Currently on valproate, Vimpat, Keppra and Cobazam - Continue home medication, valproate level low at admit 48 on 06-12, 48 on 06-13, Valproic acid level 76 06-19 prior to dose, lacosamide level 1.4 on 06/12, 9.6 on 06-19 Followed by Neurology at [facility] Cognitive communication deficit 08/25/2020 Cerebrovascular accident [...] Smokeless Tobacco: Current Tobacco Cessation:Counseling Given: Yes [employer] Utilities Answer Date Recorded In the past 12 months has [employer], oil, or water [employer] threatened to shut off services in your [...] week 06/18/2024 How often do you attend [facility] or mormon services? Never 06/18/2024 Do you belong to any clubs o r organizations such as holiness groups, unions, fraternal or athletic groups, or [...] time in the past 12 m [facility], were you homeless or living in a [facility] (including now)? No 06/18/2024 Personal Safety Answer Date Recorded Have you ever been in or are you currently in a harmful physical or emotional relationship or is someone making you feel afraid or unsafe? Denies 07/08/2024 Sex and Gender Information Value Date Recorded Sex Assigned at Not on file Legal Sex Male 6:11 AM CAKE ICER Gender Identity Not on file Sexual Orientation Not on file Last Filed Vital Signs Vital Sign Reading Time Taken Comments Blood Pressure 145/83 07/09/2024 6:00 AM CAKE ICER Pulse 91 07/09/2024 6:00 AM CAKE ICER Temperature 36.5 C (97.7 F) 07/09/2024 6:31 AM CAKE ICER Respiratory Rate 10 07/09/2024 6:00 AM CAKE ICER Oxygen Saturation 100% 07/09/2024 6:00 AM CAKE ICER Inhaled Oxygen Concentration - - Weight 79.8 kg (176 lb) 07/09/2024 2:16 AM CAKE ICER Height 182.9 cm (6') 07/09/2024 2:16 AM CAKE ICER Body Mass Index 23.87 07/09/2024 2:16 AM CAKE ICER Plan of Treatment Not on file Procedures Procedure Name Priority Date/Time Associated Diagnosis Comments EGFR STAT 07/08/2024 8:56 PM CAKE ICER HEPATITIS C ANTIBODY Routine 06/26/2024 3:21 PM CAKE ICER HEMOGLOBIN A1C Routine 06/12/2024 3:30 PM CAKE ICER TNI WITH LIPID PANEL Routine 08/24/2017 4:57 PM CDT from Last 3 Months or Most Recently Relevant to Health Maintenance Results * eGFR (07/08/2024 8:56 PM CAKE ICER) eGFR >90 >=60 mL/min/1. 73 m2 Comment: [...] last reviewed 2021. Blood 07/08/2024 8:56 PM CAKE ICER 07/08/2024 9:26 PM CAKE ICER us Naa Tam MD LAB BLOOD ORDERABLES Fin al Result Performing Organization Address [facility] Co de Phone Number [facility] [employer] [place] [address] * Hepatitis C antibody Blood (06/26/2024 3:21 PM CAKE ICER) Pathologist [facility] [place] Hep C Ab Nonreactive Nonreactive Comment:Antibodies to HCV no t detected. Does NOT exclude the possibility of recent exposure to HCV. Current interpretive data was last revised on 22 Blood 06/26/2024 3:21 PM CAKE ICER 06/26/2024 3:41 PM CAKE ICER us Kami Dupont MD LAB MICROBIOLOGY - GENERA L ORDERABLES Final Result Performing Organization Address [facility] Co de Phone Number [facility] [employer] [place] [address] * TNI with LIPID PANEL (08/24/2017 4:57 PM CDT) Pathologist [facility] [place] Troponin I < 0.300 0.000 - 0.300 ng/mL 08/24/2017 5:29 PM CDT [facility] HISTORICAL RESULTS Comment: Reference using JERRICA Chemiluminescence Negative: Repeat in 4-6 hours as indicated. Triglycerides 34 0 - 199 mg/dL 08/24/2017 5:30 PM CDT [facility] HISTORICAL RESULTS Comment:12 hr pc highly avani mmended for Triglyceride Cholesterol 129 0 - 199 mg/dL Comment: Borderline: 200-239 High Risk: >239 HDL Cholesterol 71 mg/dL 8 5:30 PM CDT [facility] HISTORICAL RESULTS Comment: Reference Ranges: Males: >=40 mg/dL Females: >=50 mg/dL LDL Cholesterol, Calc 51 0 - 130 mg/dL Comment:High Risk > 159 mg/d L Cholesterol/HDL Ratio 1.8 Comment: Cholesterol / HDL Ratio 3.5:1 or less is desirable. Cholesterol / HDL Ratio greater than 5:1 is considered higher risk for developing heart disease. 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 Source: [facility] [employer]. 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 Source: [facility] [employer]. 09/18/22 Acinetobacter osh 09/18/[address] [facility] Advance Directives For more information, please contact: [phone] Documents on File Type Date Recorded Patient Amortization Schedule Clerk Expl anation ADVANCE DIRECTIVE 10/08/2012 12:00 AM SANDRA R OF [facility] ATTENDANT FINANCIAL/MEDICAL * Full Code (Latest Code Status on File) Date Activated Date Inactivated Comments 06/12/2024 3:22 PM 06/28/2024 9:30 PM * Full Code Date Activated Date Inactivated Comments 12/10/2020 9:05 AM 12/13/2020 10:44 PM Care Teams National Expansion Recruiter Relationship Specialty Start Date End Date Marielena Smallwood MD [address] [facility] [place] [address] PCP - General Family Practice 07/08/24
--- OUTSIDE RECORDS SUMMARY | 2024-10-18 15:24 | XMS_ITS | Clinical Summary ---
Author Organization [facility] [employer] Address [address] [place] [address] Care Team Providers Care Sexual Assault Response Coordinator Name Role Phone Elizabeth Sullivan RN Unavailable [phone] Jack Arroyo MD Primary Care Provider Rosie marsh Source Comments [facility] [employer],non-owned Affiliates and Associated Physician Practices is amultiple site organization consisting of ambulatory clinics and hospital sitesin [place], [place], [place] and [place]. This disclosure is being madepursuant to the Care Everywhere program and may not contain all information available regarding this patient. Last updated 18.[facility] [employer] Allergies Active Allergy Reactions Criticality Noted Date [...] for 90 days 1050 mL 2 5 Active pantoprazole (Protonix) 40 MG packet Take [...] is the same as 325 mg tab Active pantoprazole EC (Protonix) 40 MG tablet Take 1 (one) tablet by mouth 2 times daily Active Active Problems Problem Noted Date Diagnosed [...] Encounters Date Type Department Care Team Description 10/17/2024 2:47 PM CDT - 10/18/2024 10:58 AM CDT Emergency [facility] EMERGENCY DEPARTMENT [address] [place] [phone] Caio Elder MD Lorber, Steven A, MD Abdominal pain, unspecified abdominal location (Primary Dx); Lung nodule Discharge Disposition: Home or Self Care 10/17/2024 Travel 09/07/2024 Travel 08/02/2024 4:31 PM [employer] PLUMBING INSPECTOR - 08/08/2024 8:48 PM CDT Hospital Encounter [facility] [address] [place] [address] Elmo Johnson MD Mayer, Joshua C, Marianne Persaud MD Archuleta, Lydia, MD Joag, Madhura, MD Internal Medicine Discharge Disposition: Longterm or Supportive Care 08/02/2024 1:23 AM GAS PLUMBING INSPECTOR - 08/02/2024 8:15 AM [facility] Emergency [facility] EMERGENCY DEPARTMENT [address] [place] [phone] Arthur Marinelli MD Other tracheostomy complication (Primary Dx); Abdominal pain, unspecified abdominal location Discharge Disposition: [facility] Facility 08/02/2024 Travel 07/27/2024 3:54 PM GAS PLUMBING INSPECTOR - 07/28/2024 6:53 AM [facility] Emergency [facility] EMERGENCY DEPARTMENT [address] [place] [phone] Serjio Vilchis MD Feeding intolerance (Primary Dx); Generalized abdominal pain; Chronic pulmonary aspiration, initial encounter Discharge Disposition: [facility] Facility 07/27/2024 Travel from Last 3 Months Immunizations Immunization Administration Dates Next Due [employer] primary monoval ent 12+ yr 0.3mL [...] and heating? Not hard at all 08/06/2024 [facility] [place] [facility] Occupat ional [facility] - Occupational Stress [...] in a prison (including now)? No 06/19/2023 Housing Stability Vital Sign Answer Vinay e Recorded In the last 12 months, was t here a time when you were not able to pay the mortgage or rent on time? No 08/06/2024 In the past 12 months, how m any times have you moved where you were living? 1 08/06/2024 At any time in the past 12 m [facility], were you homeless or living in a prison (including now)? No 08/06/2024 Sex and Gender Information Value Date Recorded Sex Assigned at Not on file Legal Sex Male 5:07 PM G[employer] PLUMBING INSPECTOR Gender Identity Not on file Sexual Orientation Not on file Last Filed Vital Signs Vital Sign Reading Time Taken Comments Blood Pressure 169/115 10/18/2024 8:21 AM CDT Pulse 80 10/18/2024 8:21 AM CDT Temperature 36.7 C (98 F) 10/17/2024 2:50 PM CDT Respiratory Rate 20 10/18/2024 6:00 AM CDT Oxygen Saturation 100% 10/18/2024 6:00 AM CDT Inhaled Oxygen Concentration 28% 10/18/2024 3 :00 AM CDT Weight 72.6 kg (160 lb) 08/04/2024 12:00 AM G[employer] PLUMBING INSPECTOR Height 175.3 cm (5' 9.02) 08/04/2024 12:00 AM [facility] Body Mass Index 23.62 08/04/2024 12:00 AM GAS PLUMBING INSPECTOR Plan of Treatment Upcoming Encounters Date Type Department Care Team (Late st Contact Info) Description 10/24/2024 11:30 AM CDT Office Visit [facility] - Vascular Surgery [address] [place] [address], [place] [phone] Anna Membreno MD [address] [place] [address] [place] [phone] 12/05/2024 1:00 PM CDT Office Visit [facility] - Neurology [address], [place] [address] Sean Raymundo, DO [address] [place] [phone] Health Maintenance Due Date Last Done Comments [...] VACCINE ( season) 2024 04/06/2021, 07/02/2020, 06/11/2020 DEPRESSION SCREENING 05/30/2024 INFLUENZA VACCINE (Season Ended) 2025 02/01/2022, 03/16/2021, 03/07/2020, Additional history exists DTAP/TDAP/TD VACCINES (3 - Td or Tdap) 06/06/2027 06/06/2017, 03/23/2017 SCREENING FOR DIABETES 10/18/2027 5, 08/06/2024, 08/05/2024, Additional history exists HIV SCREENING Completed 09/01/2022, 01/2019, 01/30/2018, Additional history exists HEPATITIS C [...] Date/Time Associated Diagnosis Comments CARDIAC EKG ORDER 10/18/2024 11: 02 AM CDT URINALYSIS REFLEX MICROSCOPIC REFLEX CULTURE STAT 10/18/2024 6:28 AM CDT TROPONIN-I HIGH SENSITIVE STAT 10/18/2024 4:[address] ABDOMEN PELVIS W CONTRAST STAT 10/17/2024 6:42 PM CDT Abdominal pain, unspecified abdominal location XR CHEST 1VW STAT 10/17/2024 4:36 PM CDT Abdominal pain, unspecified abdominal location LACTIC ACID BLOOD STAT 10/17/2024 4:0 8 PM CDT TROPONIN-I HIGH SENSITIVE BASELINE + 1HR STAT 10/17/2024 4:08 PM CDT LIPASE BLOOD STAT 10/17/2024 4:08 PM CDT COMPREHENSIVE METABOLIC PANEL STAT 10/17/2024 4:08 PM CDT CBC W AUTO DIFFERENTIAL STAT 10/17/2024 4:08 PM CDT IR PERC GJ TUBE REPLACEMENT Routine 08/06/2024 3:07 PM CDT PEG (percutaneous endoscopic gastrostomy) status CT ABDOMEN WO CONTRAST Routine 11:00 AM CDT Nausea without vomiting PEG (percutaneous endoscopic gastrostomy) status GLUCOSE - POINT OF CARE Routine 08/06/2024 6:45 AM CDT XR ABDOMEN KUB PORTABLE STAT 08/05/2024 6:14 AM CDT Nausea and vomiting, unspecified vomiting type GLUCOSE - POINT OF CARE Routine 08/05/2024 1:43 AM GAS PLUMBING INSPECTOR CBC W/O DIFFERENTIAL Routine 08/05/2024 1:02 AM G[employer]UMBING INSPECTOR Nausea without vomiting PT-INR SLH Routine 08/05/2024 1:02 AM GAS PLUMBING INSPECTOR Nausea without vomiting MAGNESIUM BLOOD Routine 08/05/2024 1:02 AM G[employer] PLUMBING INSPECTOR Nausea without vomiting RENAL FUNCTION PANEL Routine 08/05/2024 1:02 AM G[employer] PLUMBING INSPECTOR Nausea without vomiting CBC W/O DIFFERENTIAL Routine 08/04/2024 12:12 PM G[employer]UMBING INSPECTOR Nausea without vomiting PSA FREE + TOTAL PANEL AM Draw 12:12 PM G[employer] PLUMBING INSPECTOR Acute cystitis without hematuria PT-INR SLH Routine 08/04/2024 12:12 PM G[employer] PLUMBING INSPECTOR Nausea without vomiting MAGNESIUM BLOOD Routine 08/04/2024 12:12 PM G[employer] PLUMBING INSPECTOR Nausea without vomiting RENAL FUNCTION PANEL Routine 08/04/2024 12:12 PM G[employer] PLUMBING INSPECTOR Nausea without vomiting CULTURE URINE STAT 08/03/2024 8:53 AM GAS PLUMBING INSPECTOR Acute cystitis without hematuria HEMOGLOBIN A1C RINKU 08/03/2024 5:18 AM G[employer]UMBING INSPECTOR Nausea without vomiting CBC W/O DIFFERENTIAL STAT 08/03/2024 5:18 AM G[employer] PLUMBING INSPECTOR Nausea without vomiting PT-INR SLH STAT 08/03/2024 5:18 AM G[employer] PLUMBING INSPECTOR Nausea without vomiting MAGNESIUM BLOOD STAT 08/03/2024 5:18 AM GAS PLUMBING INSPECTOR Nausea without vomiting RENAL FUNCTION PANEL STAT 08/03/2024 5:18 AM GAS PLUMBING INSPECTOR Nausea without vomiting TYPE + SCREEN PANEL STAT 08/02/2024 9 :53 PM G[employer]UMBING [employer] CT CHEST ABDOMEN PELVIS W CONT STAT 08/02/2024 9:42 PM GAS PLUMBING INSPECTOR Nausea without vomiting XR CHEST 1VW PORTABLE STAT 08/02/2024 5:15 PM GAS PLUMBING INSPECTOR Nausea without vomiting URINALYSIS REFLEX TO MICROSCOPIC NO CULTURE STAT 08/02/2024 5:08 PM GAS PLUMBING INSPECTOR PT-INR SLH STAT 08/02/2024 5:08 PM GAS PLUMBING INSPECTOR COMPREHENSIVE METABOLIC PANEL STAT 08/02/2024 5:08 PM GAS PLUMBING INSPECTOR LIPASE BLOOD STAT 08/02/2024 5:08 PM GAS PLUMBING INSPECTOR CBC W AUTO DIFFERENTIAL STAT 08/02/2024 5:08 PM GAS PLUMBING INSPECTOR XR CHEST 1VW PORTABLE STAT 08/02/2024 2:33 AM GAS PLUMBING INSPECTOR Abdominal pain, unspecified abdominal location LIPASE BLOOD STAT 08/02/2024 2:03 AM GAS PLUMBING INSPECTOR COMPREHENSIVE METABOLIC PANEL STAT 08/02/2024 2:03 AM GAS PLUMBING INSPECTOR CBC W AUTO DIFFERENTIAL STAT 08/02/2024 2:03 AM GAS PLUMBING INS[employer]OR CT CHEST ABDOMEN PELVIS W CONT STAT 07/28/2024 12:25 AM GAS PLUMBING INSPECTOR Generalized abdominal pain COMPREHENSIVE METABOLIC PANEL STAT 07/27/2024 6:26 PM GAS PLUMBING INSPECTOR CBC W AUTO DIFFERENTIAL STAT 07/27/2024 6:26 PM GAS PLUMBING INSPECTOR TROPONIN-I HIGH SENSITIVE BASELINE + 1HR STAT 07/27/2024 6:26 PM GAS PLUMBING INSPECTOR MAGNESIUM BLOOD STAT 07/27/2024 6:26 PM GAS PLUMBING INSPECTOR LIPASE BLOOD STAT 07/27/2024 6:26 PM GAS PLUMBING INSPECTOR EKG 12-LEAD Routine 07/27/2024 5:34 PM GAS PLUMBING INSPECTOR Generalized abdominal pain XR CHEST 1VW PORTABLE Routine 07/27/2024 12:39 PM G[employer] PLUMBING INSPECTOR Nausea and vomiting, unspecified vomiting type HEPATITIS C AB SCREEN RFLX NAAT QUANT Routine 09/01/2022 2:05 AM CDT HIV-1 HIV-2 ANTIBODY + HIV P24 AG PANEL Routine 09/01/2022 2:05 AM CDT from Last 3 Months or Most Recently Relevant to Health Maintenance Results * CARDIAC EKG ORDER (10/18/2024 11:02 AM CDT) Narrative 10/18/2024 11:02 AM CDT Ordered by an unspecified provider. us Scanned Document CARDIAC SERVICES ORDERABLES Fin al Result * URINALYSIS REFLEX MICROSCOPIC REFLEX CULTURE (10/18/2024 6:28 AM CDT) Color UA Yellow Yellow, Straw 10/18/2024 6:49 AM CDT [facility] Clarity UA Clear Clear 10/18/2024 6:49 AM T [facility] Glucose UA Normal Normal 10/18/2024 6:49 AM T [facility] Bilirubin UA Negative Negative 10/18/2024 6:49 AM T [facility] Ketone UA Negative Negative 10/18/2024 6:49 AM T [facility] Specific [place] UA 1.022 1.005 - 1.030 10/18/2024 6:49 AM [facility] Blood UA Negative Negative 10/18/2024 6:49 AM [facility] pH UA 8.0 5.0 - 8.0 pH 10/18/2024 6:49 AM [facility] Protein UA Negative Negative 10/18/2024 6:49 AM CDT [facility] Urobilinogen UA Normal Normal mg/dL 10/18/2024 6:49 AM CDT [facility] Nitrite UA Negative Negative 10/18/2024 6:49 AM CDT [facility] Leukocyte UA Negative Negative 10/18/2024 6:49 AM CDT [facility] Reflex Status Culture not indicated 10/18/2024 6:49 AM CDT [facility] Urine URINE SPECIMEN OBTAINED BY CLEAN CATCH PROCEDURE / Unknown Collection / Unknown 10/18/2024 6:28 AM CDT 10/18/2024 6:32 AM CDT us Caio Elder MD LAB - URINALYSIS ORDERABLES Fi nal Result [address] [address], [place] [phone] * TROPONIN-I HIGH SENSITIVE (10/18/2024 4:10 AM CDT) Troponin I High Sensitive 5 <=35 ng/L 10/18/2024 5:15 AM CDT [facility] Blood BLOOD SPECIMEN / Unknown Venipuncture / Unknown 10/18/2024 4:10 AM CDT 10/18/2024 4:39 AM CDT us Leonardo Hanson MD LAB - CHEMISTRY ORDERABLES Fi nal Result [address] [address], [place] [phone] * CT Abdomen Pelvis W Contrast (10/17/2024 6:42 PM CDT) Anatomical Region Laterality Modality Abdomen, Pelvis Computed Tomogra phy 10/17/2024 7:06 PM CDT Impressions 10/18/2024 1:49 AM CDT Impression: 1.Nodular opacity in the inferior left upper lobe, new since prior study dated 08/06/2024, favors to may represent small area of consolidation and pneumonia, given the short interval. 2.A gastrostomy tube is in place. 3.Otherwise no acute findings in abdomen or pelvis. Report drafted by Guilherme Foy (resident) I, John Graham MD have personally reviewed and interpreted this examination/study. > Interpreting Provider: John Graham MD on 10/18/2024 1:49 AM Narrative 10/18/2024 1:49 AM CDT Procedure Information DATE: 10/17/2024 6:43 PM EXAMINATION: Computed tomography (CT) of the abdomen and pelvis with contrast TECHNIQUE: CT of the abdomen and pelvis was performed following the uneventful administration of 100 mL of Isovue 370 intravenous contrast according to standard protocol. Clinical Information HISTORY: R10.9: Abdominal pain, unspecified abdominal location COMPARISON: CT abdomen pelvis dated 08/06/2024 Findings Lower Chest: Mild bilateral dependent portion subsegmental atelectasis. There is a left inferior upper lobe nodular opacity measuring 1.6 x 0.9 cm, new since prior study dated 08/06/2024, raises question of infectious process such as pneumonia. Hepatobiliary: The liver enhances homogenously. No intrahepatic or extrahepatic biliary dilatation. The gallbladder is normal. Pancreas: Normal. Spleen: Normal. Kidneys: Normal. Adrenals: Normal. Retroperitoneum: No retroperitoneal lymphadenopathy or hematoma. Gastrointestinal: A gastrostomy tube is in place. No dilated bowel loops. Appendix: Normal. Mesentery: Normal. Pelvic Structures: Normal. Vasculature: Scattered atherosclerotic vasculature changes. Bones: The visible osseous structures are intact. Mild degenerative changes are seen in the spine. Soft tissues: Normal. Procedure Note John Graham MD - 10/18/2024 Procedure Information DATE: 10/17/2024 6:43 PM EXAMINATION: Computed tomography (CT) of the abdomen and pelvis with contrast TECHNIQUE: CT of the abdomen and pelvis was performed following the uneventful administration of 100 mL of Isovue 370 intravenous contrast according to standard protocol. Clinical Information HISTORY: R10.9: Abdominal pain, unspecified abdominal location COMPARISON: CT abdomen pelvis dated 08/06/2024 Findings Lower Chest: Mild bilateral dependent portion subsegmental atelectasis. There is a left inferior upper lobe nodular opacity measuring 1.6 x 0.9cm, new since prior study dated 08/06/2024, raises question of infectious process such as pneumonia. Hepatobiliary: The liver enhances homogenously. No intrahepatic or extrahepatic biliary dilatation. The gallbladder is normal. Pancreas: Normal. Spleen: Normal. Kidneys: Normal. Adrenals: Normal. Retroperitoneum: No retroperitoneal lymphadenopathy or hematoma. Gastrointestinal: A gastrostomy tube is in place. No dilated bowel loops. Appendix: Normal. Mesentery: Normal. Pelvic Structures: Normal. Vasculature: Scattered atherosclerotic vasculature changes. Bones: The visible osseous structures are intact. Mild degenerative changes are seen in the spine. Soft tissues: Normal. Impression: 1.Nodular opacity in the inferior left upper lobe, new since prior study dated 08/06/2024, favors to may represent small area of consolidation and pneumonia, given the short interval. 2.A gastrostomy tube is in place. 3.Otherwise no acute findings in abdomen or pelvis. Report drafted by Guilherme Foy (resident) John Thomason MD have personally reviewed and interpreted this examination/study. > Interpreting Provider: John Graham MD on 10/18/2024 1:49 AM Caio Elder MD CT ORDERABLES Final Result * XR Chest 1Vw (10/17/2024 4:36 PM CDT) Anatomical Region Laterality Modality Chest Digital Radiogra phy 10/17/2024 5:39 PM CDT Narrative 10/18/2024 11:44 AM CDT PROCEDURE: XR CHEST 1VW DATE/TIME OF EXAM: 10/17/2024 4:36 PM CLINICAL INFORMATION: None relevant/not provided if blank. Indication: R10.9: Abdominal pain, unspecified abdominal location Additional History: COMPARISON: Chest radiograph dated 08/08/2024 FINDINGS/IMPRESSION: Tracheostomy terminates in the midthoracic trachea. Mild bibasilar atelectasis. Unchanged appearance of retrocardiac and bibasilar opacities, left greater than right, which could represent atelectasis versus airspace disease. No pleural effusion or pneumothorax. Cardiac mediastinal silhouette is within normal limits. No displaced bony abnormality. No evidence of free air beneath the diaphragm. Report dictated by Meeta Leblanc MD (vice president payer). Nj Thomason MD have personally reviewed and interpreted this examination/study. > Interpreting Provider: Nj Escobar MD on 10/18/2024 11:44 AM Procedure Note Nj Escobar MD - 10/18/2024 PROCEDURE: XR CHEST 1VW DATE/TIME OF EXAM: 10/17/2024 4:36 PM CLINICAL INFORMATION: None relevant/not provided if blank. Indication: R10.9: Abdominal pain, unspecified abdominal location Additional History: COMPARISON: Chest radiograph dated 08/08/2024 FINDINGS/IMPRESSION: Tracheostomy terminates in the midthoracic trachea. Mild bibasilar atelectasis. Unchanged appearance of retrocardiac and bibasilar opacities, leftgreater than right, which could represent atelectasis versus airspace disease. No pleural effusion or pneumothorax. Cardiac mediastinal silhouette is within normal limits. No displacedbony abnormality. No evidence of free air beneath the diaphragm. Report dictated by Meeta Leblanc MD (vice president payer). I, Nj Escobar MD have personally reviewed and interpreted this examination/study. > Interpreting Provider: Nj Escobar MD on 10/18/2024 11:44 AM us Caio Elder MD DIAGNOSTIC IMAGING ORDERABLES Final Result * TROPONIN-I HIGH SENSITIVE BASELINE + 1HR (10/17/2024 4:08 PM CDT) Only the most recent of2 resultswithin the time period is included. Troponin I High Sensitive 4 <=35 ng/L 10/17/2024 5:01 PM CDT [facility] Blood BLOOD SPECIMEN / Unknown Venipuncture / Unknown 10/17/2024 4:08 PM CDT 10/17/2024 4:17 PM CDT us Caio Elder MD LAB - CHEMISTRY ORDERABLES Fin al Result [address] [address], [facility] [phone] * (ABNORMAL) CBC W AUTO DIFFERENTIAL (10/17/2024 4:08 PM CDT) Only the most recent of4 resultswithin the time period is included. WBC 7.2 4.0 - 10.7 x10E9/L 10/17/2024 4:32 PM [facility] RBC Count 4.15(L) 4.30 - 5.80 x10E12/L 10/17/2024 4:32 PM [facility] Hemoglobin 13.4 13.3 - 17.5 g/dL 10/17/2024 4:32 PM [facility] Hematocrit 39.5 38.7 - 51.1 % 10/17/2024 4:32 PM [facility] MCV 95.2 80.0 - 98.0 fL 10/17/2024 4:32 PM [facility] MCH 32.3 26.7 - 33.6 pg 10/17/2024 4:32 PM [facility] MCHC 33.9 31.7 - 36.3 g/dL 10/17/2024 4:32 PM [facility] RDW-CV 13.2 11.3 - 14.8 % 10/17/2024 4:32 PM [facility] Platelet Count 129(L) 150 - 420 x10E9/L 10/17/2024 4:32 PM [facility] MPV 10/17/2024 4:32 PM [facility] Comment:Unable to report Neutrophil % 54.0 41.0 - 74.0 % 10/17/2024 4:32 PM [facility] Lymphocyte % 30.4 17.0 - 47.0 % 10/17/2024 4:32 PM [facility] Monocyte % 10.3 3.0 - 11.0 % 10/17/2024 4:32 PM [facility] Eosinophil % 4.6 0.0 - 7.0 % 10/17/2024 4:32 PM [facility] Basophil % 0.4 0.0 - 1.6 % 10/17/2024 4:32 PM [facility] Immature Granulocytes % 0.3 0.0 - 1.0 % 10/17/2024 4:32 PM [facility] Neutrophil Absolute 3.89 1.60 - 7.50 x10E9/L 10/17/2024 4:32 PM [facility] Lymphocyte Absolute 2.19 1.00 - 4.40 x10E9/L 10/17/2024 4:32 PM [facility] Monocyte Absolute 0.74 0.15 - 1.00 x10E9/L 10/17/2024 4:32 PM [facility] Eosinophil Absolute 0.33 0.00 - 0.60 x10E9/L 10/17/2024 4:32 PM [facility] Basophil Absolute 0.03 0.00 - 0.13 x10E9/L 10/17/2024 4:32 PM [facility] Blood BLOOD SPECIMEN / Unknown Venipuncture / Unknown 10/17/2024 4:08 PM CDT 10/17/2024 4:17 PM CDT us Caio Elder MD LAB - HEMATOLOGY ORDERABLES Fi nal Result [facility] [address] [place] [address], [facility] [phone] * (ABNORMAL) COMPREHENSIVE METABOLIC PANEL (10/17/2024 4:08 PM T) Only the most recent of4 resultswithin the time period is included. BUN 13 7 - 26 mg/dL 10/17/2024 5:01 PM [facility] Creatinine 0.45(L) 0.71 - 1.16 mg/dL 10/17/2024 5:01 PM [facility] Sodium 137 136 - 145 mmol/L 10/17/2024 5:01 PM [facility] Potassium 5.0(H) 3.5 - 4.5 mmol/L 10/17/2024 5:01 PM [facility] Comment:Hemolysis detected i n this specimen. Hemolysis may cause false elevations in potassium leading to pseudohyperkalemia or masked hypokalemia. Recommend repeat testing if clinically indicated. Chloride 107 98 - 107 mmol/L 10/17/2024 5:01 PM [facility] CO2 26 22 - 29 mmol/L 10/17/2024 5:01 PM [facility] Glucose 93 70 - 99 mg/dL 10/17/2024 5:01 PM [facility] Calcium 9.4 8.4 - 10.2 mg/dL 10/17/2024 5:01 PM [facility] Protein Total 7.7 6.0 - 8.3 g/dL 10/17/2024 5:01 PM [facility] Comment:Hemolysis detected i n this specimen. Hemolysis is known to cause elevations in this analyte. Caution should be exercised in the interpretation of this result. Recommend repeat testing if clinically indicated. Albumin 3.7 3.4 - 5.0 g/dL 10/17/2024 5:01 PM [facility] Bilirubin Total 0.3 0.2 - 1.2 mg/dL 10/17/2024 5:01 PM [facility] Alkaline Phosphatase 101 40 - 150 U/L 10/17/2024 5:01 PM [facility] ALT 32 5 - 55 U/L 10/17/2024 5:01 PM [facility] AST 32 5 - 34 U/L 10/17/2024 5:01 PM [facility] Comment:Hemolysis detected i n this specimen. Hemolysis is known to cause elevations in this analyte. Caution should be exercised in the interpretation of this result. Recommend repeat testing if clinically indicated. Anion Gap 4(L) 6 - 16 10/17/2024 5:01 PM [facility] BUN/Creatinine Ratio 29(H) 7 - 23 09/28 5:01 PM [facility] Osmolality Calculated 284 275 - 295 mOsm/kg 10/17/2024 5:01 PM [facility] Albumin/Globulin Ratio 0.9(L) 1.1 - 2.3 10/17/2024 5:01 [facility] eGFR by CKD-EPI >90 >=90 mL/min/1 .73 m2 10/17/2024 5:01 PM [facility] Blood BLOOD SPECIMEN / Unknown Venipuncture / Unknown 10/17/2024 4:08 PM CDT 10/17/2024 4:17 PM CDT us Caio Elder MD LAB - CHEMISTRY ORDERABLES Fin al Result Performing Organization Address City/[facility]/ZIP Co de Phone Number [address] [address], [place] [phone] * LIPASE BLOOD (10/17/2024 4:08 PM CDT) Only the most recent of4 resultswithin the time period is included. Lipase 23 8 - 78 U/L 10/17/2024 5:14 PM CDT [facility] Blood BLOOD SPECIMEN / Unknown Venipuncture / Unknown 10/17/2024 4:08 PM CDT 10/17/2024 4:17 PM CDT Narrative [facility] - 10/17/2024 5:14 PM CDT Lipase results from the [employer] Alinity analyzer may not be comparable with other methodologies. us Caio Elder MD LAB - CHEMISTRY ORDERABLES Fin al Result Performing Organization Address City/[facility]/ZIP Co de Phone Number [address] [address], [place] [phone] * LACTIC ACID BLOOD (10/17/2024 4:08 PM CDT) Lactic Acid-Stat 1.8 <=2.0 mmol/L 10/17/2024 4:47 PM CDT [facility] Blood BLOOD SPECIMEN / Unknown Venipuncture / Unknown 10/17/2024 4:08 PM CDT 10/17/2024 4:17 PM CDT us Caio Elder MD LAB - CHEMISTRY ORDERABLES Fin al Result Performing Organization Address [facility]/ZIP Co de Phone Number [address] [address], [place] [phone] * IR Perc GJ Tube Replacement (08/06/2024 3:07 PM CDT) Anatomical Region Laterality Modality Abdomen X-Ray Angiograph y 08/06/2024 3:22 PM CDT Impressions 08/06/2024 3:35 PM CDT Impression: Successful exchange of the existing 18 Niuean gastrojejunostomy catheter for a new 18 Niuean gastrojejunostomy catheter under fluoroscopic guidance, as described [...] jelly Procedure: Exchange of the existing 18 Niuean gastrojejunostomy catheter for a new 18 Niuean gastrojejunostomy catheter under fluoroscopic guidance. Start time: 1435 End time: 1451 Fluoroscopic time: 4.0 minutes Contrast: 10 mL of Isovue-300 Procedure in detail: The procedure, risks, and possible complications were explained to the patient in detail, and informed consent was obtained. The patient was placed supine on the procedure table. A equipment monitor phototypesetting film of abdomen was obtained, which showed [...] was removed over the wire. A 4 Niuean Kumpe catheter was advanced over the wire and using this combination, was advanced into the jejunum. The Kumpe catheter was then removed over the wire. A new 18 Niuean gastrojejunostomy catheter was then advanced over the [...] jelly Procedure: Exchange of the existing 18 Niuean gastrojejunostomy catheter for a new 18 Niuean gastrojejunostomy catheter under fluoroscopicguidance. Start time: 1435 End time: 1451 Fluoroscopic time: 4.0 minutes Contrast: 10 mL of Isovue-300 Procedure in detail: The procedure, risks, and possible complications were explained to the patient in detail, and informed consent was obtained. The patient was placed supine on the procedure table. A equipment monitor phototypesetting film of abdomen wasobtained, which showed the [...] was removed over the wire. A 4 Niuean Kumpe catheter wasadvanced over the wire and using this combination, was advanced into the jejunum. The Kumpe catheter was then removed over the wire. A new 18 Niuean gastrojejunostomy catheter was then advanced over the guidewire under fluoroscopic guidance. The catheter was secured by balloon insufflation. Hand injection of contrast through the gastric port confirmedintraluminal position within the stomach. Hand injection of contrast through thejejunal port confirmed intraluminal position within the jejunum. Steriledressing was applied. The patient tolerated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
--- OUTSIDE RECORDS SUMMARY | 2024-10-18 15:24 | XMS_ITS | Clinical Summary ---
Author Organization [facility] Address [address] [place] [address] Care Team Providers Care Turn Operator Name Role Phone Marielena Smallwood MD [...] 25 Active cloBAZam (ONFI) 2.5 mg/mL suspensionIndicati ons:[place] Syndrome Treatment Adjunct Administer 4 mL (10 [...] 06/28/2024 Assessment & Plan (06/28/2024 11:42 AM HAND TRUCKER): Now back on full TF's sugars running mildly high. Monitor with q4 accuchecks and SSI. Hypophosphatemia 06/27/2024 Assessment & Plan (06/28/2024 11:44 AM HAND TRUCKER): <0.7 ? 2/2 refeeding syndrome. Started on neutraphos 2pkg QID 06/26. Still Phos<0.7 06/27. Tx with IV NaPhos 30mmoles and cont per tube replacement and monitor closely. -06/28: Phos=3.3, reduce nuetraphos to 1 PKG BID and monitor History of DVT (deep vein thrombosis) 06/26/2024 Assessment & Plan (06/26/2024 1:32 PM HAND TRUCKER): -On anticoagulation with Eliquis 5 mg po BID for hx of DVT -per chart review hx of Left Subclavian vein DVT diagnosed 08/01/23 H/O: GI bleed 06/25/2024 Assessment & Plan (06/26/2024 1:32 PM HAND TRUCKER): - recent admission at [facility] ( 06-07-24 [...] 06/25/2024 Assessment & Plan (06/26/2024 1:36 PM HAND TRUCKER): Tracheostomy dependence, has a Shiley #4 cuffed. Pt followed at [facility], per notes trach in place for pulmonary toilet due to his copious secretions and ongoing aspiration of his secretions. -needing frequent suctioning -sats stable on 28% FIO2 by HHTC -Was getting VEST at [facility] Low grade fever 06/20/2024 Assessment & Plan (06/26/2024 1:34 PM HAND TRUCKER): Low-grade fever and tachycardia, softer BP after [...] 06/17/2024 Assessment & Plan (06/28/2024 11:43 AM HAND TRUCKER): -patient at admission with a G tube, [...] tube fell off and pt had 18 Bah[place] G tube placed at [facility] ED on 04/21/24 (records on care everywhere)and after that he has not tolerated well tube feedings per discussion with his sister Ms Hilliard,Adriane [phone] POA - consulted IR 06-20-24 for conversion [...] goal 06/25, adjust FWF per hydration status, gravity prospecting observer to follow up -On full TF's-osmolite 1.5. Phos repleted. Copious oral secretions 06/13/2024 Assessment & Plan (06/26/2024 1:29 PM HAND TRUCKER): Patient on chronic glycopyrrolate due to secretions, held at admission 2/ to potential for constipation with plan to add back when he's had a bowel movements -resume on 06-19- hold on 06-20 due to somnolence. Suction PRN - restart glycopyrrolate 1mg BID 06/26 and monitor Abdominal pain 06/12/2024 Assessment & Plan (06/26/2024 1:23 PM HAND TRUCKER): -p/w abdominal distention from [facility] to ED on 06-12 ,reported biliary emesis per jail (approximately 300 cc) , not associated fevers or change in bowel habits. Feeding tube placed to gravity drainage in ED H&P notes regular bowel movements. CT scan on 06-12 in ED with stool in the rectum and sigmoid. [place] likely constipation contributing to the patient's abdominal [...] 06/12/2024 Assessment & Plan (06/26/2024 12:08 AM HAND TRUCKER): Complicated by left LE AKA. History of CVA (cerebrovascular accident) 2020 Assessment & Plan (06/26/2024 1:32 PM HAND TRUCKER): - hx of RT parietal CVA- hx of dementia Cont asa and statin Essential hypertension 12/11/2020 Assessment & Plan (06/26/2024 1:30 PM HAND TRUCKER): - on metoprolol and norvasc, held with soft BP 06-19 - resume metoprolol 06-21 -resume amlodipine 06-22 - Monitor Hyperlipidemia 12/11/2020 Assessment & Plan (06/12/2024 3:47 PM HAND TRUCKER): - Continue home statin Seizure 12/10/2020 Assessment & Plan (06/26/2024 1:36 PM HAND TRUCKER): History of seizure disorder secondary to traumatic brain injury. Currently on valproate, Vimpat, Keppra and Cobazam - Continue home medication, valproate level low at admit 48 on 06-12, 48 on 06-13, Valproic acid level 76 06-19 prior to dose, lacosamide level 1.4 on 06/12, 9.6 on 06-19 Followed by Neurology at [facility] Cognitive communication deficit 08/25/2020 [...] specified rheumatoid arthritis, unspecifie d site 06/26/2015 Surgical History Surgery Date Site/Laterality Comments GJ-TUBE EXCHANGE 09/09/2023 N/A GJ-TUBE EXCHANGE 02/25/2023 N/A GJ-TUBE EXCHANGE 12/14/2022 N/A G TO GJ-TUBE REPLACEMENT 06/22/2024 N/A Medical History Medical History Date Comments Arthritis Stroke (HCC) Hypertension Wheelchair bound 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) Followed up at [facility] ([facility]) Degenerative cervical spinal stenosis Family History Medical History Relation Name Comments Coronary artery disease Father Stroke Father Hypertension Mother Relation Name Status Comments Father Mother Social History Tobacco Use Types Packs/Day Years Used Date Smoking Tobacco: Former Cigarettes Smokeless Tobacco: Current Tobacco Cessation:Counseling Given: Yes [facility] Utilities Answer Date Recorded In the past 12 months has th e electric, gas, oil, or water company [...] often do you attend chur ch or islam services? Never 06/18/2024 Do you belong to any clubs o r organizations such as yazidism groups, unions, fraternal or athletic groups, or [...] [facility] time in the [facility], were you homeless or living in a detention (including now)? No 06/18/2024 Personal Safety Answer Date Recorded Have you ever been in or are you currently in a harmful physical or emotional relationship or is someone making you feel afraid or unsafe? Denies 07/08/2024 Sex and Gender Information Value Date Recorded Sex Assigned at Not on file Legal Sex Male 6:11 AM HAND TRUCKER Gender Identity Not on file Sexual Orientation Not on file Obstetrics History Last Filed Vital Signs Vital Sign Reading Time Taken Comments Blood Pressure 145/83 07/09/2024 6:00 AM HAND TRUCKER Pulse 91 07/09/2024 6:00 AM HAND TRUCKER Temperature 36.5 C (97.7 F) 07/09/2024 6:31 AM HAND TRUCKER Respiratory Rate 10 07/09/2024 6:00 AM HAND TRUCKER Oxygen Saturation 100% 07/09/2024 6:00 AM HAND TRUCKER Inhaled Oxygen Concentration - - Weight 79.8 kg (176 lb) 07/09/2024 2:16 AM HAND TRUCKER Height 182.9 cm (6') 07/09/2024 2:16 AM HAND TRUCKER Body Mass Index 23.87 07/09/2024 2:16 AM HAND TRUCKER Plan of Treatment Health Maintenance Due Date [...] Diagnosis Comments EGFR STAT 07/08/2024 8:56 PM HAND TRUCKER HEPATITIS C ANTIBODY Routine 06/26/2024 3:21 PM HAND TRUCKER HEMOGLOBIN A1C Routine 06/12/2024 3:30 PM HAND TRUCKER TNI WITH LIPID PANEL Routine 08/24/2017 4:57 PM CDT from Last 3 Months or Most Recently Relevant to Health Maintenance Results * eGFR (07/08/2024 8:56 PM HAND TRUCKER) eGFR >90 >=60 mL/min/1. 73 m2 Comment: [...] last reviewed 2021. Blood 07/08/2024 8:56 PM HAND TRUCKER 07/08/2024 9:26 PM HAND TRUCKER us Naa Tam MD LAB BLOOD ORDERABLES Fin al Result Performing Organization Address [facility] Co de Phone Number [facility] Department [place] [address] * Hepatitis C antibody Blood (06/26/2024 3:21 PM HAND TRUCKER) [facility] Hep C Ab Nonreactive Nonreactive Comment:Antibodies to HCV no t detected. Does NOT exclude the possibility of recent exposure to HCV. Current interpretive data was last revised on 22 Blood 06/26/2024 3:21 PM HAND TRUCKER 06/26/2024 3:41 PM HAND TRUCKER us Kami Dupont MD LAB MICROBIOLOGY - GENERA L ORDERABLES Final Result Performing Organization Address [facility] de Phone Number [facility] Department [place] [address] * TNI with LIPID PANEL (08/24/2017 4:57 PM CDT) [facility] Troponin I < 0.300 0.000 - 0.300 ng/mL 08/24/2017 5:29 PM CDT [facility] HISTORICAL RESULTS Comment: Reference using JERRICA Chemiluminescence Negative: Repeat in 4-6 hours as indicated. Triglycerides 34 0 - 199 mg/dL 08/24/2017 5:30 PM CDT [facility] HISTORICAL RESULTS Comment:12 hr pc highly avani mmended for Triglyceride Cholesterol 129 0 - 199 mg/dL 08/24/2017 5:30 PM CDT [facility] HISTORICAL RESULTS Comment: Borderline: 200-239 High Risk: >239 HDL Cholesterol 71 mg/dL 8 5:30 PM CDT [facility] HISTORICAL RESULTS Comment: Reference Ranges: Males: >=40 mg/dL Females: >=50 mg/dL LDL Cholesterol, Calc 51 0 - 130 mg/dL 08/24/2017 5:30 PM CDT [facility] HISTORICAL RESULTS Comment:High Risk > 159 mg/d L Cholesterol/HDL Ratio 1.8 08/24/2017 5:30 PM CDT [facility] HISTORICAL RESULTS Comment: Cholesterol / HDL Ratio 3.5:1 or less is desirable. Cholesterol / HDL Ratio greater than 5:1 is considered higher risk for developing heart disease. 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 Source: [facility] Earlier Media. 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 Source: [facility] Earlier Media. 09/18/22 Acinetobacter os 09/18/[address] [facility] Advance Directives For more information, please contact: [phone] Documents on File Type Date Recorded Patient Rehabilitation Coordinator Expl anation ADVANCE DIRECTIVE 10/08/2012 12:00 AM SANDRA Gonzalez OF [employer] * Full Code (Latest Code Status on File) Date Activated Date Inactivated Comments 06/12/2024 3:22 PM 06/28/2024 9:30 PM * Full Code Date Activated Date Inactivated Comments 12/10/2020 9:05 AM 12/13/2020 10:44 PM Care Teams Turn Operator Relationship Specialty Start Date End Date Marielena Smallwood MD [address] [facility] [place] [address] PCP - General Family Practice 07/08/24
--- OUTSIDE RECORDS SUMMARY | 2024-10-18 15:24 | XMS_ITS | Data Portability ---
Demographics Address [address] [place] [address] Home Phone Mobile Phone Email Address Preferred Language en Marital Status Never Buddhist Affiliation Unknown Race Black or Irma rican Ethnic Group Not or Lati no Author Organization [facility] Address [address] [place] [address] Assessment No assessment recorded. Plan of Treatment Reminders Order Date Submit Date Provider Last Modified By Organization Details Last Modified Time Details Appointments None recorded. Lab None recorded. Referral None recorded. Procedures None recorded. Surgeries None recorded. Imaging None recorded. Medication Orders ibuprofen 800 mg tablet 2015 016 [facility] [employer], [address] [place] [address], [id number], 6 18:35:08 Prozac 20 mg capsule 2014 015 [facility] [employer], [address] [place] [address], [id number], 5 16:10:15 tramadol 50 mg tablet 2014 015 [facility] [employer], [address] [place] [address], [id number], 5 12:13:56 Flomax 0.4 mg capsule 2014 015 [employer], [address] [place] [address], [id number], 5 16:10:16 Ambien 10 mg tablet 2014 015 [facility] [employer], [facility], [address] [place] [address], [id number], 5 10:37:28 Patient TargetsNo targets recorded. Patient Instructions Encounter Date Encounter Id Patient Instructions Last Modified By Organization Details Last Modified Time 06/10/2014 [id number] stroke: care instructions Not available 06/21/2014 17:33:19 insomnia: care instructions Not available 06/21/2014 17:33:19 epilepsy: care instructions Not available 06/21/2014 17:33:19 09/18/2014 [id number] epilepsy: care instructions [email or web address] Not available 09/18/2014 17:05:10 back care and preventing injuries: care instructions [email or web address] Not available 09/18/2014 17:05:10 04/16/2015 [id number] epilepsy: care instructions campadu Not available 04/16/2015 16:05:30 06/12/2015 [id number] stroke: care instructions [email or web address] Not available 06/13/2015 12:21:31 epilepsy: care instructions dsalmond Not available 06/13/2015 12:21:31 learning about high blood pressure dsalmond Not available 06/13/2015 12:21:31 Reason for Referral None Reported. Results Created Date Observation Date Name Description Value Unit Range Abnormal Flag Note LastModifiedBy Organization Detail LastModifiedTime 06/12/19 16 06/12/2015 CBC w/ auto diff WBC 5.9 K/uL 3.4-10 .8 Not Available [facility] (Lab) [address] [place], [address], 06/12/2015 19:52:35 06/12/19 16 06/12/2015 CBC w/ auto diff red blood count 4.6 M/uL 4.5-6. 3 Not Available [facility] (Lab) [address], [place], [address], 06/12/2015 19:52:35 06/12/19 16 06/12/2015 CBC w/ auto diff hemoglobin 14.7 g/dL 13.5-1 7.5 Not Available [facility] (Lab) [address] [place], [address], 06/12/2015 19:52:35 06/12/19 16 06/12/2015 CBC w/ auto diff hematocrit 44.5 % 40.0-5 2.0 Not Available [facility] (Lab) [address] [place], [address], 06/12/2015 19:52:35 06/12/19 16 06/12/2015 CBC w/ auto diff MCV 97 fL 80-95 high Not Available [facility] (Lab) [address] [place], [address], 06/12/2015 19:52:35 06/12/19 16 06/12/2015 CBC w/ auto diff MCH 32 pg 27-32 Not Available [facility] (Lab) [address] [place], [address], 06/12/2015 19:52:35 06/12/19 16 06/12/2015 CBC w/ auto diff MCHC 33 g/dL 32-36 Not Available [facility] (Lab) [address] [place], [address], 06/12/2015 19:52:35 06/12/19 16 06/12/2015 CBC w/ auto diff platelets 219 K/uL 155-37 9 Not Available [facility] (Lab) [address] [place], [address], 06/12/2015 19:52:35 06/12/19 16 06/12/2015 CBC w/ auto diff RDW 11.6 % 11.5-1 4.5 Not Available [facility] (Lab) [address] [place], [address], 06/12/2015 19:52:35 06/12/19 16 06/12/2015 CBC w/ auto diff MPV 11.1 fL 8.9-12 .7 Not Available [facility] (Lab) [address] [place], [address], 06/12/2015 19:52:35 06/12/19 16 06/12/2015 CBC w/ auto diff neutrophils absolute 2.5 K/uL 1.4-7. 0 Not Available [facility] (Lab) [address] [facility], [place], [address], 06/12/2015 19:52:35 06/12/19 16 06/12/2015 CBC w/ auto diff lymphs (absolute) 2.6 K/uL 0.7-3. 1 Not Available [facility] (Lab) [address] [facility], [place], [address], 06/12/2015 19:52:35 06/12/19 16 06/12/2015 CBC w/ auto diff monocytes (absolute) 0.5 K/uL 0.1-0. 9 Not Available [facility] (Lab) [address] [place], [address], 06/12/2015 19:52:35 06/12/19 16 06/12/2015 CBC w/ auto diff eos (absolute) 0.2 K/uL 0.0-0. 4 Not Available [facility] (Lab) [address] [place], [address], 06/12/2015 19:52:35 06/12/19 16 06/12/2015 CBC w/ auto diff baso (absolute) 0.0 K/uL 0.1-0. 3 low Not Available [facility] (Lab) [address] [facility], [place], [address], 06/12/2015 19:52:35 06/12/19 16 06/12/2015 CBC w/ auto diff neut % 43.1 % 40.0-7 4.0 Not Available [facility] (Lab) [address] [place], [address], 06/12/2015 19:52:35 06/12/19 16 06/12/2015 CBC w/ auto diff lymphs % 44.6 % 14.0-4 6.0 Not Available [facility] (Lab) [address] [place], [address], 06/12/2015 19:52:35 06/12/19 16 06/12/2015 CBC w/ auto diff mono % 8.7 % 4.0-12 .0 Not Available [facility] (Lab) [address], [place], [address], 06/12/2015 19:52:35 06/12/19 16 06/12/2015 CBC w/ auto diff eos % 3 % <=5 Not Available [facility] (Lab) [address], [place], [address], 06/12/2015 19:52:35 06/12/19 16 06/12/2015 CBC w/ auto diff baso % 0.2 % 0.1-1. 1 Not Available [facility] (Lab) [address] [facility], [place], [address], 06/12/2015 19:52:35 06/12/19 16 06/13/2015 HbA1c (hemo globi n A1c), blood hemoglobin A1C 5.4 % 4.8-5. 6 . Pre-d iabet es: 5.7 - 6.4 Diabe ivet: >6.4 Glyce [place] contr ol for adult s with diabe ivet: <7.0 Not Available [facility] (Lab) [address], [place], [address], 06/13/2015 04:12:44 06/12/19 16 06/13/2015 T4, total , serum thyroxine T4 4.7 ug/dL 4.5-12 .0 Not Available [facility] (Lab) [address] [place], [address], 06/13/2015 05:19:09 06/12/19 16 06/13/2015 CMP, serum or plasm a glucose, serum 98 mg/dL 65-99 Not Available [facility] [address], [place], [address], 06/13/2015 05:19:11 06/12/19 16 06/13/2015 CMP, serum or plasm a BUN 7 mg/dL 6-24 Not Available [facility] (Lab) [address], [place], [address], 06/13/2015 05:19:11 06/12/19 16 06/13/2015 CMP, serum or plasm a creatinine, serum 0.78 mg/dL 0.76-1 .27 Not Available [facility] (Lab) [address], [place], [address], 06/13/2015 05:19:11 06/12/19 16 06/13/2015 CMP, serum or plasm a eGFR if nonafricn AM 102 mL/mi n/1.7 3 >59 Not Available [facility] (Lab) [address], [place], [address], 06/13/2015 05:19:11 06/12/19 16 06/13/2015 CMP, serum or plasm a eGFR if 118 mL/mi n/1.7 3 >59 Not Available [facility] (Lab) [address], [place], [address], 06/13/2015 05:19:11 06/12/19 16 06/13/2015 CMP, serum or plasm a BUN/creatini ne ratio 9 9-20 Not Available [facility] (Lab) [address], [place], [address], 06/13/2015 05:19:11 06/12/19 16 06/13/2015 CMP, serum or plasm a sodium, serum 141 mmol/ L 134-14 4 Not Available [facility] (Lab) [address] [place], [address], 06/13/2015 05:19:11 06/12/19 16 06/13/2015 CMP, serum or plasm a potassium, serum 4.5 mmol/ L 3.5-5. 2 Not Available [facility] (Lab) [address], [place], [address], 06/13/2015 05:19:11 06/12/19 16 06/13/2015 CMP, serum or plasm a chloride, serum 101 mmol/ L 97-108 Not Available [facility] (Lab) [address] [place], [address], 06/13/2015 05:19:11 06/12/19 16 06/13/2015 CMP, serum or plasm a carbon dioxide, total 23 mmol/ L 18-29 Not Available [facility] (Lab) [address], [place], [address], 06/13/2015 05:19:11 06/12/19 16 06/13/2015 CMP, serum or plasm a calcium, serum 9.5 mg/dL 8.7-10 .2 Not Available [facility] (Lab) [address], [place], [address], 06/13/2015 05:19:11 06/12/1906/13/2015 CMP, serum or plasm a protein total serum 7.2 g/dL 6.0-8. 5 Not Available [facility] (Lab) [address], [place], [address], 06/13/2015 05:19:11 06/12/1906/13/2015 CMP, serum or plasm a albumin, serum 4.5 g/dL 3.5-5. 5 Not Available [facility] (Lab) [address], [place], [address], 06/13/2015 05:19:11 06/12/19 16 06/13/2015 CMP, serum or plasm a globulin total 2.7 g/dL 1.5-4. 5 Not Available [facility] (Lab) [address], [place], [address], 06/13/2015 05:19:11 06/12/1906/13/2015 CMP, serum or plasm a A/G ratio 1.7 1.1-2. 5 Not Available [facility] (Lab) [address], [place], [address], 06/13/2015 05:19:11 06/12/1906/13/2015 CMP, serum or plasm a bilirubin total <0.2 mg/dL 0.0-1. 2 Not Available [facility] (Lab) [address] [place], [address], 06/13/2015 05:19:11 06/12/19 16 06/13/2015 CMP, serum or plasm a alkaline phosphatase ser 105 IU/L 39-117 Not Available [facility] (Lab) [address], [place], [address], 06/13/2015 05:19:11 06/12/19 16 06/13/2015 CMP, serum or plasm a AST (SGOT) 20 IU/L 0-40 Not Available [facility] ([facility]) [address] [place], [address], 06/13/2015 05:19:11 06/12/19 16 06/13/2015 CMP, serum or plasm a ALT (SGPT) 18 IU/L 0-44 Not Available [facility] (Lab) [address] [place], [address], 06/13/2015 05:19:11 06/12/19 16 06/13/2015 TSH, serum or plasm a TSH 2.010 uIU/m L 0.450- 4.500 Not Available [facility] (Lab) [address] [place], [address], 06/13/2015 05:19:12 06/12/19 16 06/13/2015 PSA, serum [...] t be inter prete d as absol telida evide nce of the prese nce or absen ce of truong mena . Not Available [facility] (Lab) [address] [place], [address], 06/13/2015 05:19:13 06/12/19 16 06/13/2015 lipid panel w/ direc t LDL, serum cholesterol, total 215 mg/dL 100-19 9 high Not Available [facility] (Lab) [address] [place], [address], 06/13/2015 05:19:14 06/12/19 16 06/13/2015 lipid panel w/ direc t LDL, serum triglyceride s 73 mg/dL 0-149 Not Available [facility] (Lab) [address] [place], [address], 06/13/2015 05:19:14 06/12/19 16 06/13/2015 lipid panel w/ direc t LDL, serum HDL cholesterol 85 mg/dL >39 Accor ding to ATP-I II Guide lines , HDL-C >59 mg/dL is consi dered a negat phan risk facto r for CHD. Not Available [facility] (Lab) [address] [place], [address], 06/13/2015 05:19:14 06/12/19 16 06/13/2015 lipid panel w/ direc t LDL, serum VLDL cholesterol margarita 15 mg/dL 5-40 Not Available [facility] (Lab) [address] [place], [address], 06/13/2015 05:19:14 06/12/19 16 06/13/2015 lipid panel w/ direc t LDL, serum LDL cholesterol calc 115 mg/dL 0-99 high Not Available [facility] (Lab) [address] [place], [address], 06/13/2015 05:19:14 06/12/19 16 06/13/2015 lipid panel w/ direc t LDL, serum lipid calculation Not Available [facility] ([facility]) [address] [place], [address], 06/13/2015 05:19:14 09/22/19 15 09/21/2014 imagi ng/di agnos tic resul t No observ ation record ed. [address] , [place], [address], 09/30/2014 11:19:53 09/26/19 15 imagi ng/di agnos tic resul t No observ ation record ed. [email or web address] Not Available 2014 11:08:28 10/01/19 15 09/27/2014 imagi ng/di agnos tic resul t No observ ation record ed. [address] [place], [address], 10/03/2014 11:08:29 11/09/19 15 11/08/2014 imagi ng/di agnos tic resul t No observ ation record ed. [email or web address] Not Available 2014 15:10:11 12/02/19 15 12/01/2014 imagi ng/di agnos tic resul t No observ ation record ed. [email or web address] Not Available 2014 10:38:41 01/03/20 15 12/31/2014 imagi ng/di agnos tic resul t No observ ation record ed. [facility] (Rad) [address] [place], [address], 01/02/2015 09:50:17 01/07/20 15 01/05/2015 imagi ng/di agnos tic resul t No observ ation record ed. [email or web address] [facility], [place], [address], 01/06/2015 09:32:38 03/10/20 15 03/10/2015 imagi ng/di agnos tic resul t No observ ation record ed. [email or web address] [facility] (Rad) [address] [place], [address], 03/10/2015 12:50:58 03/11/20 15 03/11/2015 CV EKG 12 lead MOJGAN TABOR MD: KIRILL ANN MD 6905 ACCT: [id number] ADMIT/ SERVIC E DATE: DISCHA RGE DATE: : 1959 PT TYPE: ADM IN SEX: M ORD SITE: [address] TEST DATE: 2014-05 PAT NAME: MOJGAN TABOR DEPART MENT: CARD 40 PATIEN T ID: [id number] ROOM: [facility] GENDER : MALE TECHNI MARIA ISABEL: CDN : 01-[address] BY: CADE ANN ORDER NUMBER : [id number] [id number] CJ Lu MD: FELIEP SELF MEASUR EMENTS INTERV ALS AXIS RATE: 145 P: 81 RI: 118 QRS: 19 QRSD: 82 T: 70 QT: 282 QTC: 438 INTERP RETIVE STATEM ENTS SINUS TACHYC ARDIA WITH SHORT RI INTERV AL WITH OCCASI ONAL VENTRI CULAR PREMAT URE COMPLE XES WITH OCCASI ONAL SUPRAV ENTRIC ULAR AMBER SEPTAL MYOCAR DIAL INFARC TION, PROBAB LY OLD NONSPE CIFIC ST SEGMEN T ABNORM ALITIE S, CANNOT RULE OUT ISCHEM IA ELECTR ONICAL LY SIGNED BY FELIPE SELF AT 17:03: 07 CDT [facility], [place], [address], 05/07/2015 04:08:47 03/11/20 15 03/11/2015 xr chest 1 view alejandraMOJGAN Hester 6905 ADMIT/ SERVIC E DATE: ACCT: [id number] DISCHA RGE DATE: : 1959 SEX: M ORD SITE: [facility] PT TYPE: ADM IN JING MUHAMMAD MD: KIRILL ANN MD STUDY DATE REPORT # ORDER # EXT ORDER ID [id number] 1.002 PROC CODE: [id number] ORT PROCED URE DESCRI PTION: XR CHEST 1 VIEW PORTAB LE I MPRESS ION: NO ACUTE INFILT RATE. EXAMIN ATION: PORTAB LE CHEST X-RAY 1 VIEW ACCESS ION: [id number] EXAM DATE/T TRAVON: 2014 8:36 PM CLINIC [...] SIGNED BY: MARYBEL CROUCH ER10/07/2014 8:54 PM [facility], [place], [address], 05/07/2015 04:08:47 03/12/20 15 03/12/2015 MRI brain wo MOJGAN TABOR 6905 ADMIT/ SERVIC E DATE: ACCT: [id number] DISCHA RGE DATE: : 1959 SEX: M ORD SITE: [facility] PT TYPE: ADM IN BRANDONI SABINA MD: KIRILL ANN MD STUDY DATE REPORT # ORDER # EXT ORDER ID [id number] 1.001 PROC CODE: BRNWOC PROCED URE DESCRI [...] BRAIN WITHOU T CONTRA ST. ACCESS ION: [id number] EXAM DATE/T TRAVON: 2014 11:23 AM CLINIC [...] SIGNED BY: CADE GRAY 11:51 AM build [facility], [place], [address], 05/07/2015 04:08:47 06/19/19 16 06/19/2015 imagi ng/di agnos tic resul t No observ ation record ed. [email or web address] Not Available 2015 09:33:44 06/19/19 16 06/19/2015 imagi ng/di agnos tic resul t No observ ation record ed. [facility] (Lab) [address] [place] [address] , [place], [address], 06/19/2015 09:33:44 06/19/19 16 06/19/2015 imagi ng/di agnos tic resul t No observ ation record ed. [facility] (Lab) [address] [place] [address] [place], [address], 06/20/2015 09:57:26 06/20/19 16 06/19/2015 imagi ng/di agnos tic resul t No observ ation record ed. [address] [place], [address], 06/20/2015 10:01:56 05/09/20 19 05/09/2019 , les aldana id arter y No observ ation record ed. [address] [place], [address], 05/09/2019 17:59:20 Result Notes None recorded. Problems Name Problem SNOMED Code Status Onset Date Resolution Date Notes Provider Name and Address Organization Details Recorded Time Low back pain 459066295 Active Burke Ann MD Attn: Zulemalivia lu,[address] [facility], [place], [address], [place] [facility] 5 16:09:38 Essential hypertension 85434936 Active Burke Ann MD Attn: Austin tabitha,[address] [facility], [place], [address], [place] [facility] 6 18:34:53 Anxiety 89311282 Active Burke Ann MD Attn: [place] lu,[address] [facility], [place], [address], [place] [facility] 5 15:03:30 Laceration - injury 281635550 Active Burke Ann MD Attn: Zulemalivia lu,[address] [facility], [place], [address], [place] [facility] 5 15:31:20 Seizure disorder 299868966 Active Burke Ann MD Attn: [place] tabitha,[address] [facility], [place], [address], [place] [facility] 6 18:34:53 Cerebrovascula r accident 223862440 Active Burke Ann MD Attn: [place] tabitha,[address] [facility], [place], [address], [place] [facility] 6 18:34:53 Insomnia 573235814 Active Burke Ann MD Attn: Austin lu,[address] [facility], [place], [address], [place] [facility] 5 15:31:20 Problem Notes None recorded. Procedures Surgical History None recorded. Imaging Results Imaging Date Name Status LastModified by Organiz ation Details LastModified Time 09/21/2014 imaging/diagn ostic result completed [address] [place], [address], 09/30/2014 11:19:53 09/25/2014 imaging/diagn ostic result completed Information not available 10/03/2014 11:08:28 09/27/2014 imaging/diagn ostic result completed [address] [place], [address], 10/03/2014 11:08:29 11/08/2014 imaging/diagn ostic result completed Information not available 11/11/2014 15:10:11 12/01/2014 imaging/diagn ostic result completed [email or web address] Information not available 12/02/2014 10:38:41 12/31/2014 imaging/diagn ostic result completed [email or web address] [facility] ([facility]) [address] [place], [address], 01/02/2015 09:50:17 01/05/2015 imaging/diagn ostic result completed [email or web address] [place], [address], 01/06/2015 09:32:38 03/10/2015 imaging/diagn ostic result completed [email or web address] [facility] ([facility]) [address] [place], [address], 03/10/2015 12:50:58 03/11/2015 CV EKG 12 [place], [address], 05/07/2015 04:08:47 03/11/2015 xr chest 1 [place], [address], 05/07/2015 04:08:47 03/12/2015 [place], [address], 05/07/2015 04:08:47 06/19/2015 imaging/diagn ostic result completed [email or web address] Information not available 06/19/2015 09:33:44 06/19/2015 imaging/diagn ostic result completed [facility] (Lab) [address] [place] [address] [place], [address], 06/19/2015 09:33:44 06/19/2015 imaging/diagn ostic result completed [facility] (Lab) [address] [place] [address] [place], [address], 06/20/2015 09:57:26 06/19/2015 imaging/diagn ostic result completed [address] [place], [address], 06/20/2015 10:01:56 05/09/2019 US, duplex, carotid artery completed [address] [place], [address], 05/09/2019 17:59:20 Procedure Notes None recorded. Medical [...] Details Last Updated DateTime 5 22 /min 02171.9 08090 g 98.7 [degF] 170.18 cm 21.4 kg/m2 80 /min 148 mm[Hg] 94 mm[Hg] Leonor Arauz MA [facility] 5 15:57:48 Date Recorded Body height Body mass index (BMI) Body weight Heart rate Respiratory rate Body temperature Systolic blood pressure Diastolic blood pressure Provider Name and Address Organization Details Last Updated DateTime 5 170.18 cm 21.5 kg/m2 97823.1 5469 g 88 /min 20 /min 98.2 [degF] 132 mm[Hg] 80 mm[Hg] Fior Pereyra MA [facility] 5 12:08:47 Date Recorded Body temperature Body height Body mass index (BMI) Heart rate Respiratory rate Body weight Systolic blood pressure Diastolic blood pressure Provider Name and Address Organization Details Last Updated DateTime 5 97.9 [degF] 175.26 cm 20.2 kg/m2 78 /min 18 /min 30961.1 5469 g 142 mm[Hg] 90 mm[Hg] Jeannasunitha Luan [facility] 5 13:46:55 Date Recorded Heart rate Body height Respiratory rate Body mass index (BMI) Body weight Body temperature Systolic blood pressure Diastolic blood pressure Provider Name and Address Organization Details Last Updated DateTime 6 92 /min 170.18 cm 20 /min 21.5 kg/m2 20027.1 5469 g 98 [degF] 102 mm[Hg] 78 mm[Hg] Leonor Arauz MA [facility] 6 16:31:07 Social History None recorded. [...] Skin Problems N Anemia N Heart Attack (NH) N Diabetes N Anxiety Disorder Y Muscle, Joint, or Bone Problems N Seizures/Epilepsy Y Acid Reflux (GERD) N Cancer N Stroke Y Allergies N Asthma N High Cholesterol N Hepatitis N Liver Disease N Headaches Y Osteoporosis N Heart Failure N Past Encounters Encounter ID Performer Location Encounter Start Date Encounter Closed Date Diagnosis/Indication Diagnosis SNOMED-CT Code Diagnosis ICD10 Code Diagnosis Note [id number] Burke Ann MD [facility] (Adult/Fa m Med) [address] [place] [phone] 06/10/2014 13:26:21 06/10/2014 18:13:06 Laceration - injury 743372727 Seizure disorder 625393052 Cerebrovas cular accident 078827880 Insomnia 919459729 [id number] Burke Ann MD [facility] (Adult/Fa m Med) [address] [place] [address] 09/18/2014 14:45:50 09/18/2014 18:01:22 Seizure disorder 730546481 Anxiety 10642427 Low back pain 376048617 [id number] Burke Ann MD [facility] (Adult/Fa m Med) [address] [place] [phone] 04/16/2015 11:24:38 04/16/2015 17:33:17 Essential hypertension 88184035 I10 Anxiety 13786667 F41.9 Seizure disorder 8930132 02 G40.909 [id number] Burke Ann MD [facility] (Adult/Fa m Med) [address] [place] [address] 06/12/2015 15:25:04 06/27/2015 12:04:51 Essential hypertension 91542684 I10 Seizure disorder 1212031 02 G40.909 Cerebrovas cular accident 914645890 I63.9 Health Concerns Section Related Observation LastModified by Organization Detai ls LastModified Time None Recorded Concern Status LastModified by Organization Details LastModified Time None Recorded Advance Directives Directive None Recorded Payers Encounter Date Sequence Insurance Name Policy Number Policy Gilbert Covered Member ID Gilbert Member ID Guarantor Name 06/10/2014 1 [place] PRIOR TO 11/27/2020 (MEDICAID REPLACEMENT - HMO) Mojgan Tabor [id number] Mojgan Tabor 09/18/2014 1 [place] PRIOR [place] 11/27/2020 (MEDICAID REPLACEMENT - HMO) Mojgan Tabor [id number] Mojgan Tabor 04/16/2015 1 [place] PRIOR TO 11/27/2020 (MEDICAID REPLACEMENT - HMO) Mojgan Tabor [id number] Mojgan Tabor 06/12/2015 1 [place] PRIOR TO 11/27/2020 (MEDICAID REPLACEMENT - HMO) Mojgan Tabor [id number] Mojgan Tabor Notes Date Note Type Note Provider Name and Address Organization Details Recorded Time 04/16/2015 text/html FOLLOW up care since stroke Burke Ann MD Attn: [employer]ing,[address] [place], [address], [place] [facility] 04/16/2015 15:03:31
--- OUTSIDE RECORDS SUMMARY | 2024-10-18 15:24 | XMS_ITS | Encounter Summary ---
Author Organization [facility] Health Address [address] [place] [address] Care Team Providers Care Graphic Arts Instructor Name Role Phone Elizabeth Sullivan RN Unavailable [phone] Jack Arroyo MD Primary Care Provider Rosie marsh Encounter Details Date Type Department Care Team (Latest Contact Info) Description 10/17/2024 Travel Social History Tobacco Use Types Packs/Day [...] and heating? Not hard at all 08/06/2024 [facility] - Occupational Stress [...] in a jail (including now)? No 06/19/2023 Housing Stability Vital Sign Answer Vinay e Recorded In the last 12 months, was t here a time when you were not able to pay the mortgage or rent on time? No 08/06/2024 In the past 12 months, how m any times have you moved where you were living? 1 08/06/2024 At any time in the past 12 m [facility], were you homeless or living in a jail (including now)? 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 Answer Date of Assessment Author No 07/17/2024 2:53 PM Mahogany Watson, RN * Is person blind or have serious difficulty seeing? Answer Date of Assessment Author No 07/17/2024 2:53 PM Mahogany Watson, RN * Does person have serious difficulty walking/climbing stairs? Answer Date of Assessment Author Yes 07/17/2024 2:53 PM Mahogany Watson, RN * Does person have difficulty dressing/bathing? Answer Date of Assessment Author Yes 07/17/2024 2:53 PM Mahogany Watson, RN * Does person have difficulty doing errands alone? Answer Date of Assessment Author Yes 07/17/2024 2:53 PM Mahogany Watson, RN documented as of this encounter Mental Status * Does person have difficulty concentrating/remembering/making decisions? Answer Entry Date Author Yes 07/17/2024 2:53 PM Mahogany Watson RN documented in this encounter Plan of Treatment Upcoming Encounters Date Type Department Care Team (Late st Contact Info) Description 10/24/2024 11:30 AM CDT Office Visit [facility] - Vascular Surgery [address] [place] [address], [place] [id number] [place] [address] [place] [address] [address] [place] [phone] 12/05/2024 1:00 PM CDT [facility] - [facility]rology [address] [place] [address], [place] [id number] Sean Raymundo DO [address] [facility] [address] [place] [phone] documented as of this encounter Visit Diagnoses Not on filedocumented in this encounter Additional Health Concerns Infection Onset Date Last Indicated Resolved Time 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 Source: [facility]. 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
--- OUTSIDE RECORDS SUMMARY | 2024-10-18 15:24 | XMS_ITS | Encounter Summary ---
Author Organization [facility] Address [address] [place] [address] Care Team Providers Care Chief Procurement Officer Name Role Phone Elizabeth Sullivan RN Unavailable [phone] Jack Arroyo MD Primary Care Provider Rosie marsh Reason for Visit * Reason Comments Pain Abdominal Pt bibems complains of abdominal pain and distention, nausea, and vomiting that started today. Denies chest pain, fevers, and chills. Encounter Details Date Type Department Care Team (Late st Contact Info) Description 10/17/2024 2:47 PM CDT - 10/18/2024 10:58 AM T Emergency [facility] EMERGENCY DEPARTMENT [address] [place] [phone] Caio Elder MD [address] [place] [address] OF [place] [phone] Leonardo Hanson MD [address] [place] [address] Abdominal pain, unspecified abdominal location (Primary Dx); Lung nodule Discharge Disposition: Home or Self Care Social [...] and heating? Not hard at all 08/06/2024 [facility] - Occupational Stress [...] place to sleep or slept in a usp (including now)? No 06/19/2023 Housing Stability Vital Sign Answer Vinay e Recorded In the last 12 months, was t here a time when you were not able to pay the mortgage or rent on time? No 08/06/2024 In the past 12 months, how m any times have you moved where you were living? 1 08/06/2024 At any time in the past 12 m [facility], were you homeless or living in a usp (including now)? 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 Answer Date of Assessment Author No 07/17/2024 2:53 PM Mahogany Watson RN * Is person blind or have serious difficulty seeing? Answer Date of Assessment Author No 07/17/2024 2:53 PM Mahogany Watson RN * Does person have serious difficulty walking/climbing stairs? Answer Date of Assessment Author Yes 07/17/2024 2:53 PM Mahogany Watson RN * Does person have difficulty dressing/bathing? Answer Date of Assessment Author Yes 07/17/2024 2:53 PM Mahogany Watson, RN * Does person have difficulty doing errands alone? Answer Date of Assessment Author Yes 07/17/2024 2:53 PM Mahogany Watson RN documented as of this encounter Mental Status * Does person have difficulty concentrating/remembering/making decisions? Answer Entry Date Author Yes 07/17/2024 2:53 PM Mahogany Watson RN documented in this encounter Discharge Instructions * Discharge Instructions* Xavier Bruce MD - 10/18/2024 6:57 AM CDT Please follow up with your primary care doctor as discussed, your CT scan here was negative for anyacute findings. Please return to the ER for worsening abdominal pain, nausea/vomiting more than 5 episodes. documented in this encounter Medications at Time of Discharge acetaminophen (Tylenol) 325 MG tablet 2 (two) tablets by Enteral Tube route 3 times daily Maximum allowable Acetaminophen amount = 4 Grams (4000 mg) / 24 hours. Pt takes 160 mg/5mL liquid which is the same as 325 mg tab 08/08/2024 albuterol-ipratr opium (Duo-Neb) 0.5-2.5 (3) MG/3ML nebulizer [...] Hours (03,09,15,21) 200 mL 02/28/2023 lacosamide (Vimpat) 10 MG/ML oral solution 20 mL by Per G Tube route 2 times daily levETIRAcetam (Keppra) 100 MG/ML oral solution 17.5 mL by Enteral Tube route 2 times daily for 90 days 1050 mL 2 07/18/2024 magnesium hydroxide (Milk of Magnesia) 400 MG/5ML [...] 2 times daily for 60 days 07/18/2024 pantoprazole EC (Protonix) 40 MG tablet Take [...] hours 07/18/2024 documented as of this encounter ED Notes * Yadira Mosley Graduate Nurse - 10/18/2024 10:57 AM CDT Pt is awake and alert GCS 15. Breathing is regular and nonlabored. Skin is warm and dry. Gait is steady with no assistance. Proper discharge clothing. Discharge teaching successful as evidence by no further questions/concerns/needs. Pt ready for discharge. Patient left with medical nesessity for non-emergent ambulance transportation. * Yadira Mosley Graduate Nurse - 10/18/2024 8:49 AM CDT CALLED GAVE REPORT TO LINK FOR TRANSPORTATION ETA 11AM * Laurita Miller RN - 10/18/2024 4:42 AM CDT @ ~0350 entered pt room, pt with saliva in mouth, suctioned out saliva, pt with trach with o2, tropdrawn, pt found to have on saturated depends and bed saturated, pt initially not wanting me to remove depends but able to convince pt, repeat trop drawn and sent, pt rolled and seen that pt had a small bm, pericare and clean linens provided, skin intact, pt repositioned for comfort, weight shifted off buttocks, pt currently resting on stretcher with hob up, pt denying sob, vs as charted, bp high,will recheck and notify dr if bp remains elevated, side rails up x 2, call light within reach * Alin Brownlee RN - 10/17/2024 5:09 PM CDT Pt bibems complains of abdominal pain and distention, nausea, and vomiting that started today. Denies chest pain, fevers, and chills. * Caio Elder MD - 10/17/2024 4:02 PM CDT Resident Attestation I have performed an independent history and physical examination and discussed the patient's management with the resident. I confirm the residents findings, assessment and plan of care except where revised on this note. Interval History: Bi Tabor 64 year old male with a past medical history that includes cerebrovascular disease, HTN, status post G-tube and trach, and seizures, is presenting to the ED c/o abd pain. Pt is PEG tube dependent and wears a diaper regularly. Pt also states that his back is sore from laying but attributes that to being mostly bed bound. Patient denies any chest pain or SOB. Patient history is limited due to speech difficulty with trach. History is obtained from patient and is located in my HPI section. I also externally reviewed previous records that I had access to within [facility] and noted relevant statements in my HPI. ROS: Pertinent ROS as per HPI Past Medical History[1] Past Surgical History[2] Social History[3] Allergies[4] Medications[5] Exam: Vitals: 10/17/24 1450 BP: 147/92 Pulse: 84 Resp: 16 Temp: 98 ??F (36.7 ??C) SpO2: 100% Gen- no acute distress, no diaphoresis, not clammy , afebrile, vital signs stable Eyes- normal conjunctiva Ent- tracheostomy in place without drainage, dry oral mucus, poor dentition Cv- heart without murmur, normal pulses bilateral radial. Chest wall tenderness. Resp- lung clear to auscultation, difficulty speaking due to being trach dependent. Abd- distended abd (bit patient states this is his baseline). PEG tube is in place without infection. Generalized abdominal tenderness. Ms- no ext swelling Neuro- normal motor all 4 MDM: DDx: PEG tube complication vs infection vs ileus vs UTI vs pancreatitis vs other Plan: Pending Urinalysis Labs Reviewed CBC W AUTO DIFFERENTIAL - Abnormal; Notable for the following components: Result Value RBC Count 4.15 (*) Platelet Count 129 (*) All other components within normal limits COMPREHENSIVE METABOLIC PANEL - Abnormal; Notable for the following components: Creatinine 0.45 (*) Potassium 5.0 (*) Anion Gap 4 (*) BUN/Creatinine Ratio 29 (*) Albumin/Globulin Ratio 0.9 (*) All other components within normal limits LIPASE BLOOD - Normal Narrative: Lipase results from the [employer] Alinity analyzer may not be comparable with other methodologies. TROPONIN-I HIGH SENSITIVE BASELINE + 1HR - Normal LACTIC ACID BLOOD - Normal URINALYSIS REFLEX MICROSCOPIC REFLEX CULTURE Lab interpret: Benign by my review CT Abdomen Pelvis W Contrast (Results Pending) XR Chest 1Vw (Results Pending) Rad interpret: CT per Radiology benign EKG- Interpreted by me: Date: 10/17/2024 Time: 4:18 PM R&R: NSR at a rate of 87 BPM Additional findings: slight left axis deviation. T wave elevations in V1 through V3 that are similar to EKG from 07/27/2024 ED COURSE: ED Course as of 10/17/242352October 17, 20241916 CT chest abd/pelvis prelim: 10/17/2024 7:11 PMDanii Kenan: Nodular opacity in the inferior left upper lobe, new since prior study dated 08/06/2024, favors to may represent small area of consolidation and pneumonia, given the short interval. A gastrostomy tube is in place. Otherwise no acute findings in abdomen or pelvis. [RN] [address] Hanson at this time [RK] 2333 At sign out pt pending urinalysis then likely d/c back to facility [SM] ED Course User Index [RK] Jaylyn Martinez [RN] Ankur Coombs, [] Rachel Christie MD Clinical Impressions as of 10/17/24 2353 Abdominal pain, unspecified abdominal location Lung nodule - Nodular opacity in the inferior left upper lobe, new since prior study dated 08/06/2024 Patient with abdominal pain. Workup benign. 11:00 p.m.-care to Dr. Hanson pending urinalysis and final disposition pt counseled on findings and plan Clinical Impression: 1. Abdominal pain, unspecified abdominal location 2. Lung nodule Conclusion and Disposition: Acute problems: Refer to HPI Exacerbations of chronic problems: Refer to HPI Systemic issues: Refer to HPI Consultations in the ED: Refer to ED course Medication changes: Refer to ED course and disposition tab Follow up: Refer to ED course and disposition tab Disposition: WILSON to Dr. Hanson @ 11 PM Please see resident note for further details By signing my name below, Jaylyn Thomason, attakua that this documentation has been prepared under the direction and in the presence of Dr. Elder. Signed: Laisha Morgan. By signing my name below, Akbar Thomason attakua that this documentation has been prepared under the direction and in the presence of Dr. Elder. Signed: Laisha Arora. Dr. Jerrod Thomason, personally performed the services described in this documentation. All medical record entries made by the gurjitibzion were at my direction and in my presence. I have reviewed the chart andagree that the record reflects my personal performance and is accurate and complete. Electronically signed: Dr. 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; LEFT BKA POSS AKA SINUS SURGERY N/A 11/26/2022 N/A; Bilateral Nasal Endoscopy, Right polypectomy, Right Maxillary Antrostomy, Rihjy Anterior Ethmoidectomy [3] Social History Tobacco Use Smoking status: Former Current packs/day: 1.00 Average packs/day: 1 pack/day for 15.0 years (15.0 ttl pk-yrs) Types: Cigarettes Smokeless tobacco: Never Vaping Use Vaping status: Never Used Substance Use Topics Alcohol use: No Comment: last drink 2015 Drug use: No Comment: occasional [4] Allergies Allergen Reactions Clonazepam Psychiatric hallucinations [5] Current Facility-Administered Medications Medication iopamidol (Isovue 370) 76 % contrast Current Outpatient Medications Medication Sig acetaminophen (Tylenol) 325 MG tablet 2 (two) tablets by Enteral Tube route 3 times daily Maximum allowable Acetaminophen amount = 4 Grams (4000 mg) / 24 hours. Pt takes 160 mg/5mL liquid which is the same as 325 mg tab albuterol-ipratropium (Duo-Neb) 0.5-2.5 (3) MG/3ML nebulizer solution [...] (one) tablet by mouth 2 times daily finasteride (Proscar) 5 MG tablet 1 (one) tablet by Per G Tube route once daily folic acid (Folvite) 1 MG tablet 1 (one) tablet by Enteral Tube route once daily glycopyrrolate (Robinul) 1 MG tablet 1 (one) tablet by Per G Tube route 2 times daily guaiFENesin (Robitussin) 100 MG/5ML solution 15 mL by Enteral Tube route Every 6 Hours (03,09,15,21) lacosamide (Vimpat) 10 MG/ML oral solution 20 mL by Per G Tube route 2 times daily levETIRAcetam (Keppra) 100 MG/ML oral solution 17.5 mL by Enteral Tube route 2 times daily for 90 days magnesium hydroxide (Milk of Magnesia) 400 MG/5ML [...] mouth 2 times daily for 60 days pantoprazole EC (Protonix) 40 MG tablet Take 1 (one) tablet by mouth 2 times daily polyethylene glycol 3350 (Miralax) 17 g packet 17 (seventeen) g by Enteral Tube route 2 times daily senna (Senokot) 8.6 MG tablet 1 (one) tablet by Enteral Tube route once daily Sodium Phosphates (FLEET ENEMA RE) thiamine (Vitamin B-1) 100 MG tablet 1 (one) tablet by Enteral Tube route once daily valproic acid (Depakene) 250 MG/5ML solution 10 mL by Per G Tube route every 8 hours * Jake Esparza RN - 10/17/2024 2:48 PM CDT Bed: [facility] Expected date: Expected time: Means of arrival: Comments: 1341 documented in this encounter Miscellaneous Notes * Clinical References AVS - Xavier Bruce MD - 10/18/2024 6:57 AM CDT Images from the original note were not included. [id number] Abdominal Pain Abdominal pain means pain in the stomach or belly area. Everyone has this kind of pain from time totime. In many cases, it goes away on its own. Some types of abdominal pain can be from a serious problem. One example is appendicitis. So it?s important to know when to get help. Causes of abdominal pain There are many causes of abdominal pain. Common causes in adults include: ?? Constipation, diarrhea, or gas ?? Stomach and intestine inflammation from a virus or bacteria (gastroenteritis) ?? Stomach acid flowing back up into the esophagus (acid reflux) ?? Severe acid reflux, called gastroesophageal reflux disease (GERD) ?? A sore in the lining of the stomach or small intestine (peptic ulcer) ?? Inflammation of the gallbladder, liver, or pancreas ?? Gallstones or kidney stones ?? Appendicitis ?? Intestinal blockage ?? An internal organ pushing through a muscle or other tissue (hernia) ?? Urinary tract infections ?? Menstrual cramps ?? Fibroids in the uterus ?? Ovarian cysts ?? Pelvic inflammatory disease in women ?? Endometriosis ?? Crohn's disease ?? Ulcerative colitis ?? Irritable bowel syndrome Diagnosing the cause of abdominal pain Your healthcare provider will give you a physical exam. This is to help find the cause of your pain. If needed, you'll have tests. Belly pain has many possible causes. So it may take a little time tofind the reason for your pain. Give details about the type of pain you feel. Tell your healthcare provider if it's sharp or dull. Tell them where and when you feel the pain. Tell them what makes it better or worse. And tell them if you have other symptoms such as: ?? Fever ?? Tiredness ?? Upset stomach (nausea) ?? Vomiting ?? Changes in bathroom habits ?? Blood in the stool or black, tarry stool ?? Unexpected weight loss Tell your healthcare provider: ?? If you have a family history of stomach or intestinal problems or cancer ?? About your alcohol use and any illegal drug use ?? All medicines you take, both prescription and regp-npc-xwjfune ?? What vitamins, herbs, and other supplements you take Treating abdominal pain Some causes of pain need emergency medical care right away. These include appendicitis or a bowel blockage. Other problems can be treated with rest, fluids, or medicines. Your healthcare provider cangive you instructions. You may need treatment or self-care based on what's causing your pain. If you have vomiting or diarrhea, sip water or other clear fluids. When you're ready to eat solid foods again, start lightly. Eat small amounts of vkas-ny-fgacnq, low-fat foods. These include applesauce, toast, or crackers. Call 911 Call 911 right away if you: ?? Can?t pass stool and are vomiting ?? Are vomiting blood ?? Have bloody diarrhea or black, tarry diarrhea ?? Have chest, neck, or shoulder pain ?? Feel like you might pass out (faint) ?? Have pain in your shoulder blades and nausea ?? Have sudden, severe belly pain ?? Have new, severe pain unlike any you've felt before ?? Have a belly that is rigid, hard, and hurts to touch When to call the healthcare provider Call your healthcare provider or seek medical care right away if you have any of these: ?? Pain that's worse or not getting better ?? Bloating that's worse or not getting better ?? Diarrhea that's worse or not getting better ?? Fever of 100.4??F (38??C) or higher, or as advised ?? Weight loss for no reason ?? Continued lack of appetite ?? Blood in your stool How to prevent abdominal pain Here are some tips to help prevent abdominal pain: ?? Eat smaller amounts of food at each meal. >Don't eat greasy, fried, or other high-fat foods. ?? Don't eat foods that give you gas. ?? Exercise regularly. ?? Drink plenty of fluids. To help prevent GERD symptoms: ?? Quit smoking. ?? Reduce alcohol and foods that increase stomach acid. ?? Don't use aspirin or nonsteroidal anti-inflammatory drugs (NSAIDs). ?? Lose excess weight. ?? Finish eating at least 2 hours before you go to bed or lie down. ?? Raise the head of your bed. Last Reviewed Date: 2023 00:00:00 ?? 9672-1903 [employer]. All rights reserved. This information is not intended as a substitute for professional medical care. Always follow your healthcare professional's instructions. documented in this encounter Plan of Treatment Upcoming Encounters Date Type Department Care Team (Late st Contact Info) Description 10/24/2024 11:30 AM CDT Office Visit [facility] - Vascular Surgery [address] [place] [address], [place] [phone] Anna Membreno MD [address] [place] [address] [address] [place] [phone] 12/05/2024 1:00 PM CDT Office Visit [facility] - Neurology [address] [place] [address], [place] [phone] Sean Raymundo DO [address] [place] [address] [address] [place] [address] Scheduled Orders Name Type Priority Associated Diagnoses Orde r Schedule EKG 12-Lead ECG Routine Abdominal pain, unspecified abdominal location ONCE for 1 Occurrences starting 10/17/2024 until 10/17/2024 documented as of this encounter Procedures Procedure [...] PM CDT Abdominal pain, unspecified abdominal location TROPONIN-I HIGH SENSITIVE BASELINE + 1HR STAT 10/17/2024 4:08 PM CDT CBC W AUTO DIFFERENTIAL STAT 10/17/2024 4:08 PM CDT COMPREHENSIVE METABOLIC PANEL STAT 10/17/2024 4:08 PM CDT LIPASE BLOOD STAT 10/17/2024 4:08 PM CDT LACTIC ACID BLOOD STAT 10/17/2024 4:0 8 PM CDT documented in this encounter Results * CARDIAC EKG ORDER (10/18/2024 11:02 AM CDT) Narrative 10/18/2024 11:02 AM CDT Ordered by an unspecified provider. us Scanned Document CARDIAC SERVICES ORDERABLES Fin al Result * URINALYSIS REFLEX MICROSCOPIC REFLEX CULTURE (10/18/2024 6:28 AM CDT) Color UA Yellow Yellow, Straw 10/18/2024 6:49 AM CDT [facility] Clarity UA Clear Clear 10/18/2024 6:49 AM [facility] Glucose UA Normal Normal 10/18/2024 6:49 AM [facility] Bilirubin UA Negative Negative 10/18/2024 6:49 AM [facility] Ketone UA Negative Negative 10/18/2024 6:49 AM [facility] Specific [place] UA 1.022 1.005 - 1.030 10/18/2024 6:49 AM [facility] Blood UA Negative Negative 10/18/2024 6:49 AM [facility] pH UA 8.0 5.0 - 8.0 pH 10/18/2024 6:49 AM [facility] Protein UA Negative Negative 10/18/2024 6:49 AM [facility] Urobilinogen UA Normal Normal mg/dL 10/18/2024 6:49 AM [facility] Nitrite UA Negative Negative 10/18/2024 6:49 AM [facility] Leukocyte UA Negative Negative 10/18/2024 6:49 AM [facility] Reflex Status Culture not indicated 10/18/2024 6:49 AM CDT [facility] Urine URINE SPECIMEN OBTAINED BY CLEAN CATCH PROCEDURE / Unknown Collection / Unknown 10/18/2024 6:28 AM CDT 10/18/2024 6:32 AM CDT us Caio Elder MD LAB - URINALYSIS ORDERABLES Fi nal Result Performing Organization Address City/[facility]/ZIP Co de Phone Number [address] [address], [facility] [phone] * TROPONIN-I HIGH SENSITIVE (10/18/2024 4:10 AM CDT) Troponin I High Sensitive 5 <=35 ng/L 10/18/2024 5:15 AM CDT [facility] Blood BLOOD SPECIMEN / Unknown Venipuncture / Unknown 10/18/2024 4:10 AM CDT 10/18/2024 4:39 AM CDT us Leonardo Hanson MD LAB - CHEMISTRY ORDERABLES Fi nal Result Performing Organization Address [facility] Co de Phone Number [address] [address], [facility] [phone] * CT Abdomen Pelvis W Contrast (10/17/2024 [...] John Graham MD on 10/18/2024 1:49 AM us Caio Elder MD CT ORDERABLES Final Result [...] diaphragm. Report dictated by Meeta Leblanc MD (assistant to the president). Nj Thomason MD have personally reviewed and [...] diaphragm. Report dictated by Meeta Leblanc MD (assistant to the president). I, Nj Escobar MD have personally reviewed and interpreted this examination/study. > Interpreting Provider: Nj Escobar MD on 10/18/2024 11:44 AM us Caio Elder MD DIAGNOSTIC IMAGING ORDERABLES Final Result * LACTIC ACID BLOOD (10/17/2024 4:08 PM CDT) [facility] Lactic Acid-Stat 1.8 <=2.0 mmol/L 10/17/2024 4:47 PM CDT [facility] Blood BLOOD SPECIMEN / Unknown Venipuncture / Unknown 10/17/2024 4:08 PM CDT 10/17/2024 4:17 PM CDT us Caio Elder MD LAB - CHEMISTRY ORDERABLES Fin al Result [address] [address], [facility] [phone] * TROPONIN-I HIGH SENSITIVE BASELINE + 1HR (10/17/2024 4:08 PM CDT) [facility] Troponin I High Sensitive 4 <=35 ng/L 10/17/2024 5:01 PM CDT [facility] Blood BLOOD SPECIMEN / Unknown Venipuncture / Unknown 10/17/2024 4:08 PM CDT 10/17/2024 4:17 PM CDT us Caio Elder MD LAB - CHEMISTRY ORDERABLES Fin al Result Performing Organization Address [facility]/ZIP Co de Phone Number [address] [address], [place] [phone] * LIPASE BLOOD (10/17/2024 4:08 PM CDT) Pathologist [facility] Lipase 23 8 - 78 U/L 10/17/2024 5:14 PM T [facility] Blood BLOOD SPECIMEN / Unknown Venipuncture / Unknown 10/17/2024 4:08 PM CDT 10/17/2024 4:17 PM CDT Narrative [facility] - 10/17/2024 5:14 PM CDT Lipase results from the [employer] Alinity analyzer may not be comparable with other methodologies. Caio Elder MD LAB - CHEMISTRY ORDERABLES Fin al Result Performing Organization Address [facility] de Phone Number [address] [address], [place] [phone] * (ABNORMAL) COMPREHENSIVE METABOLIC PANEL (10/17/2024 4:08 PM CDT) [facility] BUN 13 7 - 26 mg/dL 10/17/2024 5:01 PM [facility] Creatinine 0.45(L) 0.71 - 1.16 mg/dL 10/17/2024 5:01 PM [facility] Sodium 137 136 - 145 mmol/L 10/17/2024 5:01 PM [facility] Potassium 5.0(H) 3.5 - 4.5 mmol/L 10/17/2024 5:01 PM [facility] Comment:Hemolysis detected i n this specimen. Hemolysis may cause false elevations in potassium leading to pseudohyperkalemia or masked hypokalemia. Recommend repeat testing if clinically indicated. Chloride 107 98 - 107 mmol/L 10/17/2024 5:01 PM [facility] CO2 26 22 - 29 mmol/L 10/17/2024 5:01 PM [facility] Glucose 93 70 - 99 mg/dL 10/17/2024 5:01 PM [facility] Calcium 9.4 8.4 - 10.2 mg/dL 10/17/2024 5:01 PM [facility] Protein Total 7.7 6.0 - 8.3 g/dL 10/17/2024 5:01 PM [facility] Comment:Hemolysis detected i n this specimen. Hemolysis is known to cause elevations in this analyte. Caution should be exercised in the interpretation of this result. Recommend repeat testing if clinically indicated. Albumin 3.7 3.4 - 5.0 g/dL 10/17/2024 5:01 PM [facility] Bilirubin Total 0.3 0.2 - 1.2 mg/dL 10/17/2024 5:01 PM [facility] Alkaline Phosphatase 101 40 - 150 U/L 10/17/2024 5:01 PM [facility] ALT 32 5 - 55 U/L 10/17/2024 5:01 PM [facility] [facility] AST 32 5 - 34 U/L 10/17/2024 5:01 PM [facility] Comment:Hemolysis detected i n this specimen. Hemolysis is known to cause elevations in this analyte. Caution should be exercised in the interpretation of this result. Recommend repeat testing if clinically indicated. Anion Gap 4(L) 6 - 16 10/17/2024 5:01 PM [facility] BUN/Creatinine Ratio 29(H) 7 - 23 09/28 5:01 PM [facility] Osmolality Calculated 284 275 - 295 mOsm/kg 10/17/2024 5:01 PM [facility] Albumin/Globulin Ratio 0.9(L) 1.1 - 2.3 10/17/2024 5:01 PM [facility] eGFR by CKD-EPI >90 >=90 mL/min/1 .73 m2 10/17/2024 5:01 PM [facility] Blood BLOOD SPECIMEN / Unknown Venipuncture / Unknown 10/17/2024 4:08 PM CDT 10/17/2024 4:17 PM T us Caio Elder MD LAB - CHEMISTRY ORDERABLES Fin al Result [facility] [address] [place] [address], [facility] [phone] * (ABNORMAL) CBC W AUTO DIFFERENTIAL (10/17/2024 4:08 PM CDT) WBC 7.2 4.0 - 10.7 x10E9/L 10/17/2024 4:32 PM [facility] RBC Count 4.15(L) 4.30 - 5.80 x10E12/L 10/17/2024 4:32 PM [facility] Hemoglobin 13.4 13.3 - 17.5 g/dL 10/17/2024 4:32 PM [facility] Hematocrit 39.5 38.7 - 51.1 % 10/17/2024 4:32 PM [facility] MCV 95.2 80.0 - 98.0 fL 10/17/2024 4:32 PM [facility] MCH 32.3 26.7 - 33.6 pg 10/17/2024 4:32 PM [facility] MCHC 33.9 31.7 - 36.3 g/dL 10/17/2024 4:32 PM [facility] RDW-CV 13.2 11.3 - 14.8 % 10/17/2024 4:32 PM [facility] Platelet Count 129(L) 150 - 420 x10E9/L 10/17/2024 4:32 PM [facility] MPV 10/17/2024 4:32 PM [facility] Comment:Unable to report Neutrophil % 54.0 41.0 - 74.0 % 10/17/2024 4:32 PM [facility] Lymphocyte % 30.4 17.0 - 47.0 % 10/17/2024 4:32 PM [facility] Monocyte % 10.3 3.0 - 11.0 % 10/17/2024 4:32 PM [facility] Eosinophil % 4.6 0.0 - 7.0 % 10/17/2024 4:32 PM [facility] Basophil % 0.4 0.0 - 1.6 % 10/17/2024 4:32 PM CDT [facility] Immature Granulocytes % 0.3 0.0 - 1.0 % 10/17/2024 4:32 PM CDT [facility] Neutrophil Absolute 3.89 1.60 - 7.50 x10E9/L 10/17/2024 4:32 PM CDT [facility] Lymphocyte Absolute 2.19 1.00 - 4.40 x10E9/L 10/17/2024 4:32 PM CDT [facility] Monocyte Absolute 0.74 0.15 - 1.00 x10E9/L 10/17/2024 4:32 PM T [facility] Eosinophil Absolute 0.33 0.00 - 0.60 x10E9/L 10/17/2024 4:32 PM T [facility] Basophil Absolute 0.03 0.00 - 0.13 x10E9/L 10/17/2024 4:32 PM T [facility] Blood BLOOD SPECIMEN / Unknown Venipuncture / Unknown 10/17/2024 4:08 PM CDT 10/17/2024 4:17 PM CDT us Caio Elder MD LAB - HEMATOLOGY ORDERABLES nal Result Performing Organization Address City/State/[facility] Co de Phone Number [facility] [address] [place] [phone], [facility] [phone] documented in this encounter Visit Diagnoses Diagnosis Abdominal pain, unspecified abdominal location- Primary Lung nodule Solitary pulmonary nodule documented in this encounter Administered Medications Inactive Administered Medications - up to 3 most recent administrations Medication Order MAR Action Action Date Dose Rate Site 0.9% NaCl IV BOLUS 1,000 mL 1,000 mL, at 1,935.48 mL/hr, Administer over 31 Minutes, ONCE, 1 dose, On Tue10/17/24 at 1600 $ New Bag/Syringe 10/17/2024 4:48 PM CDT 1,000 mL 1935.48 mL/hr acetaminophen (Tylenol) tablet 650 mg 650 mg, Enteral Tube, NOW, 1 dose, On Marian 10/18/24 at 0815, Patient preference for lesser PRN pain meds [...] patient cannot tolerate oral intake $ Given 10/18/2024 8:18 AM CDT 650 mg G Tube docusate sodium (Colace) capsule 100 mg 100 mg, Oral, NOW, 1 dose, On Tue10/17/24 at 1930 $ Given 10/17/2024 8:44 PM CDT 100 mg HYDROmorphone (Dilaudid) injection 0.4 mg 0.4 mg, Intravenous, NOW, 1 dose, On Tue10/17/24 at 1600, Patient preference for lesser PRN pain meds [...] patient cannot tolerate oral intake $ Given 10/17/2024 4:48 PM CDT 0.4 mg iopamidol (Isovue 370) 76 % contrast Intravenous, CONTRAST ONCE, Starting on Tue10/17/24 at 1726, Until Tue10/18/24 at 1158 $ Given - Contrast 10/17/2024 6:27 PM CDT 100 mL lactated ringers IV bolus 1,000 mL, at 1,935.48 mL/hr, Administer over 31 Minutes, NOW, 1 dose, On Tue10/17/24 at 2100 $ New Bag/Syringe 10/17/2024 8:54 PM CDT 1,000 mL 1935.48 mL/hr lactated ringers IV bolus 1,000 mL, at 1,935.48 mL/hr, Administer over 31 Minutes, NOW, 1 dose, On Tue10/18/24 at 0515 $ New Bag/Syringe 10/18/2024 5:30 AM CDT 1,000 mL 1935.48 mL/hr metoprolol tartrate IR (Lopressor) tablet 25 mg 25 mg, Enteral Tube, NOW, 1 dose, On Tue10/18/24 at 0815 $ Given 10/18/2024 8:21 AM CDT 25 mg G Tube ondansetron (Zofran) injection ADS Med 1 dose, Starting on Tue10/17/24 at 1619, Until Tue10/17/24 at 1647, Created by cabinet ros $ Given 10/17/2024 4:47 PM CDT 4 mg senna (Senokot) tablet 17.2 mg 17.2 mg, Oral, ONCE, 1 dose, On Tue10/17/24 at 1945 $ Given 10/17/2024 8:44 PM CDT 17.2 mg documented in this encounter Active and Recently Administered Medications Times are shown in CDT. Scheduled Medication Order 10/16/2024 10/17/2024 10/18/2024 0.9% NaCl IV BOLUS 1,000 mL (COMPLETED) 1,000 mL, at 1,935.48 mL/hr, Administer over 31 Minutes, ONCE, 1 dose, On Tue10/17/24 at 1600 1648 ($ New Bag/Syringe - Provider: Alin Brownlee RN)1844 (Stopped - Provider: Alin Brownlee RN) acetaminophen (Tylenol) tablet 650 mg (COMPLETED) 650 mg, Enteral Tube, NOW, 1 dose, On Marian 10/18/24 at 0815, Patient preference for lesser PRN pain meds [...] first unless patient cannot tolerate oral intake 0818 ($ Given - Provider: Yadira Mosley, Graduate Nurse) docusate sodium (Colace) capsule 100 mg (COMPLETED) 100 mg, Oral, NOW, 1 dose, On Tue10/17/24 at 1930 2044 ($ Given - Provider: Charity Clifton RN) HYDROmorphone (Dilaudid) injection 0.4 mg (COMPLETED) 0.4 mg, Intravenous, NOW, 1 dose, On Tue10/17/24 at 1600, Patient preference for lesser PRN pain meds [...] first unless patient cannot tolerate oral intake 1648 ($ Given - Provider: Alin Brownlee RN) iopamidol (Isovue 370) 76 % contrast Intravenous, CONTRAST ONCE, Starting on Tue10/17/24 at 1726, Until Marian 10/18/24 at 1158 1827 ($ Given - Contrast - Provider: Sylvia Hogue, RT(R)CT) lactated ringers IV bolus (COMPLETED) 1,000 mL, at 1,935.48 mL/hr, Administer over 31 Minutes, NOW, 1 dose, On Tue10/17/24 at 2100 2054 ($ New Bag/Syringe - Provider: Charity Clifton, ALFRED)2354 (Stopped - Provider: Charity Clifton, ALFRED) lactated ringers IV bolus (COMPLETED) 1,000 mL, at 1,935.48 mL/hr, Administer over 31 Minutes, NOW, 1 dose, On Marian 10/18/24 at 0515 0530 ($ New Bag/Syri nge - Provider: Laurita Miller, ALFRED)0634 (Stopped - Provider: Laurita Miller, ALFRED) metoprolol tartrate IR (Lopressor) tablet 25 mg (COMPLETED) 25 mg, Enteral Tube, NOW, 1 dose, On Marian 10/18/24 at 0815 0821 ($ Given - Provider: Yadira Mosley, Graduate Nurse) senna (Senokot) tablet 17.2 mg (COMPLETED) 17.2 mg, Oral, ONCE, 1 dose, On Tue10/17/24 at 1945 2044 ($ Given - Provider: Charity Clifton, ALFRED) No Frequency Medication Order 10/16/2024 10/17/2024 10/18/2024 ondansetron (Zofran) injection ADS Med (COMPLETED) 1 dose, Starting on Tue10/17/24 at 1619, Until Tue10/17/24 at 1647, Created by cabinet override 1647 ($ Given - Provider: Carson Brownlee RN) documented in this encounter Additional Health Concerns Infection Onset Date Last Indicated Resolved Time RESIST ACB Comment:3/11/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 Source: [facility]. 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
--- NOTE | 2024-10-18 15:34 | ED.GENADULT ---
HPI - General Adult General Chief complaint: Nausea/Vomiting/Diarrhea Stated complaint: N/V Time Seen by Provider: 10/18/24 15:05 History of Present Illness HPI narrative: Patient is a 63-year-old male with history of tracheostomy, peg tube, and left AKA who presents ER after vomiting. Patient recently discharged today from [facility]. That he return to the half-way and vomited so family want him to come back here for further evaluation. Patient resting in bed. Communicates or hand gestures that he needs some oral suctioning. Related Data Home Medications ?Medication ?Instructions ?Recorded ?Confirmed ?Last Taken ?Type metoprolol tartrate 25 mg tablet 25 mg feeding tube BID 12/18/22 03/30/24 Unknown History polyethylene glycol 3350 17 17 g feeding tube DAILY PRN 12/18/22 03/30/24 Unknown History gram/dose oral powder Constipation bisacodyl 10 mg rectal suppository 10 mg RECTAL DAILY PRN Constipation 02/11/23 03/30/24 Unknown History sennosides 8.6 mg tablet (senna) 8.6 mg feeding tube BID 02/11/23 03/30/24 Unknown History guaifenesin 100 mg/5 mL oral liquid 300 mg feeding tube BID PRN Cough 07/08/23 03/30/24 Unknown History magnesium hydroxide 400 mg/5 mL 30 ml PO HS PRN Constipation 12/13/23 03/30/24 Unknown History oral suspension (Milk of Magnesia) artificial tears solution eye drops 1 drp ophthalmic (eye) PRN PRN Dry 02/10/24 03/30/24 Unknown History Eye(S) atorvastatin 40 mg tablet 40 mg PO HS 02/10/24 03/30/24 Unknown History calcium carbonate 500 mg/5 mL (as 1,250 mg PO Q6H PRN Heartburn 02/10/24 03/30/24 Unknown History calcium carb 1,250 mg/5 mL) oral suspension clobazam 10 mg tablet 10 mg feeding tube DAILY 02/10/24 03/30/24 Unknown History famotidine 20 mg tablet 20 mg feeding tube BID 02/10/24 03/30/24 Unknown History folic acid 1 mg tablet 1 mg feeding tube DAILY 02/10/24 03/30/24 Unknown History ipratropium 0.5 mg-albuterol 3 mg 3 ml inhalation Q6H PRN Shortness 02/10/24 03/30/24 Unknown History (2.5 mg base)/3 mL nebulization Of Breath soln lacosamide 10 mg/mL oral solution 200 mg feeding tube BID 02/10/24 03/30/24 Unknown History levetiracetam 100 mg/mL oral 1,500 mg feeding tube BID 02/10/24 03/30/24 Unknown History solution magnesium citrate (Citroma oral 296 ml PO DAILY PRN Constipation 02/10/24 03/30/24 Unknown History solution) thiamine HCl (vitamin B1) 100 mg 100 mg feeding tube DAILY 02/10/24 03/30/24 Unknown History tablet valproic acid (as sodium salt) 250 1,250 mg feeding tube QID 02/10/24 03/30/24 Unknown History mg/5 mL oral solution acetaminophen 650 mg/20.3 mL oral 650 mg feeding tube Q4H PRN Pain 03/30/24 03/30/24 Unknown History suspension (Scale Score 1-3) apixaban 5 mg tablet (Eliquis) 5 mg feeding tube BID 03/30/24 03/30/24 Unknown History aspirin 81 mg chewable tablet 81 mg feeding tube DAILY 03/30/24 03/30/24 Unknown History Allergies Allergy/AdvReac Type Severity Reaction Status Date / Time clonazepam Allergy Unknown Unknown Verified 08/20/24 06:49 Review of Systems Review of Systems: All systems reviewed & are unremarkable except as noted in HPI and below Constitutional: Constitutional: Reports no additional constitutional complaints ENT: Reports system reviewed and no additional complaints, except as documented Cardiovascular: Cardiovascular: Reports no additional cardiovascular complaints Respiratory: Respiratory: Reports no additional respiratory complaints Genitourinary: Genitourinary: Reports no additional male genitourinary complaints [facility] Past Medical History Medical History Deep venous thrombosis of upper extremity Benign prostatic hyperplasia Cerebrovascular accident Residual expressive aphasia, dysphagia, and left-sided weakness. Chronic obstructive pulmonary disease Esophageal diverticulum Gastroparesis Iron deficiency anemia Vascular dementia with psychotic disturbance Seizure disorder Surgical History Surgical History History of gastrostomy tube placement History of tracheostomy History of left above knee amputation Family History Family History Other Unknown family medical history Social History Social History Social History: Surrogate medical decision maker: Adriane Hilliard, sibling. Code status: Full code. 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 HEAD: Normocephalic, atraumatic. EYES: PERRL and EOMI. ENT: Mucous membranes moist. NECK: Supple. Tracheostomy with no significant plugging of the tube. CHEST: Clear to auscultation. No respiratory distress. HEART: Regular rate and rhythm. Normal peripheral pulses. ABDOMEN: Mildly distended abdomen without significant tenderness. Peg site appears normal. Normal bowel sounds.. EXTREMITIES: Right lower extremity and cushion boot. Left AKA. NEURO: Awake, alert, and at neurologic baseline. PSYCH: Normal mood and affect. Course Course Emergency Course: GI consulted. Requested MRCP as well as the LR bolus and a rate of 125 mL/hr. He would also like q.6 hours CBCs. General surgery consulted as well. Patient started on Zosyn. Will plan admission hospitalist service. Lactate came back elevated. 3 milliliter/kilogram bolus ordered. Already on antibiotics. Upgrade IMU. Vital Signs Vital signs: Vital Signs Temperature 98.6 F 10/18/24 14:17 Pulse Rate 100 10/18/24 14:17 Respiratory Rate 20 10/18/24 14:17 Blood Pressure 182/96 H 10/18/24 14:17 Pulse Oximetry 96 10/18/24 14:17 Oxygen Delivery Nasal Cannula 10/18/24 14:17 Oxygen Flow Rate 2 10/18/24 14:17 Temperature 98.6 F 10/18/24 14:17 Pulse Rate 109 H 10/18/24 18:48 Respiratory Rate 22 H 10/18/24 18:48 Blood Pressure 183/100 H 10/18/24 18:48 Pulse Oximetry 96 10/18/24 18:48 Oxygen Delivery Nasal Cannula 10/18/24 14:17 Oxygen Flow Rate 2 10/18/24 14:17 Medical Decision Making Vital Signs Vital Signs: Vital Signs Temperature 98.6 F 10/18/24 14:17 Pulse Rate 100 10/18/24 14:17 Respiratory Rate 20 10/18/24 14:17 Blood Pressure 182/96 H 10/18/24 14:17 Pulse Oximetry 96 10/18/24 14:17 Oxygen Delivery Nasal Cannula 10/18/24 14:17 Oxygen Flow Rate 2 10/18/24 14:17 Temperature 98.6 F 10/18/24 14:17 Pulse Rate 109 H 10/18/24 18:48 Respiratory Rate 22 H 10/18/24 18:48 Blood Pressure 183/100 H 10/18/24 18:48 Pulse Oximetry 96 10/18/24 18:48 Oxygen Delivery Nasal Cannula 10/18/24 14:17 Oxygen Flow Rate 2 10/18/24 14:17 Lab Data 10/18/24 15:47 10/18/24 15:47 Labs: Lab Results 10/18/24 10/18/24 Range/Units 15:47 19:10 WBC 11.1 H (4.5-10.0) K/mm3 RBC 4.66 (4.6-6.20) M/mm3 Hgb 14.9 (14.0-18.0) g/dL Hct 45.8 (42.0-52.0) % MCV 98.3 (80-100) fl MCH 32.0 (26-34) pg MCHC 32.5 (32-36) g/dl RDW 13.2 (11.5-14.5) % Plt Count 172 (150-375) k/mm3 MPV 12.9 H (7.4-10.4) fl Immature Gran % (Auto) 0.3 (0-0.5) % Neut % (Auto) 75.6 H (45.5-73.1) % Lymph % (Auto) 15.8 L (18.3-44.2) % [place] % (Auto) 5.3 (2.6-8.5) % Eos % (Auto) 2.8 (0-4.4) % Baso % (Auto) 0.2 (0.2-1.2) % Lymph # (Auto) 1.76 (0.9-3.2) K/mm3 [place] # (Auto) 0.6 (0.1-0.6) K/mm3 Eos # (Auto) 0.3 (0-0.3) K/mm3 Baso # (Auto) 0.0 (0.0-0.1) K/mm3 Abs Immat Gran (auto) 0.03 (0.00-0.031) K/mm3 Absolute Neuts (auto) 8.4 H (1.3-6.7) K/mm3 Absolute Nucleated RBC 0.000 (0.0-0.012) K/mm3 Nucleated RBC % 0.0 (0.0-0.2) % Sodium 140 (137-145) mmol/L Potassium 4.3 (3.4-5.0) mmol/L Chloride 103 (98-107) mmol/L Carbon Dioxide 30 (22-30) mmol/L Anion Gap 7 (4-12) mmol/L BUN 11 (9-20) mg/dL Creatinine 0.60 L (0.7-1.3) mg/dL Estim Creat Clear Calc Not Reportable Estimated GFR > 60 (59 - ) Glucose 110 (65-110) mg/dL Lactic Acid 7.8 H* (0.7-2.0) mmol/L Calcium 9.9 (8.4-10.2) mg/dL Total Bilirubin 0.7 (0.2-1.3) mg/dL AST 37 (17-59) U/L ALT 35 (6-50) U/L Alkaline Phosphatase 116 (38-126) U/L Total Protein 8.0 (6.3-8.2) g/dL Albumin 4.2 (3.5-5.1) g/dL Lipase 03060 H (23-300) U/L Imaging Data Radiologist's impression: ITS Impressions Abdomen/Pelvis CT 10/18/24 16:48 IMPRESSION: Findings consistent consistent with acute cholecystitis, as detailed above. Malpositioning of the balloon for the percutaneous gastrostomy, as detailed above. Discharge Plan Discharge Clinical Impression: Pancreatitis, Cholecystitis Patient Disposition: Still a Patient Condition: Stable Patient Language: Turkish Prescriptions: No Action bisacodyl 10 mg Suppository 10 mg RECTAL DAILY PRN (Reason: Constipation) Rx Instructions: if no results for MOM sennosides [senna] 8.6 mg Tablet 8.6 mg feeding tube BID guaifenesin 100 mg/5 mL liquid 300 mg feeding tube BID PRN (Reason: Cough) magnesium hydroxide [Milk of Magnesia] 400 mg/5 mL Suspension 30 ml PO HS PRN (Reason: Constipation) Rx Instructions: If no BM in 3 days azithromycin 250 mg tablet 250 mg PO DAILY 4 Days Qty: 4 0RF Rx Instructions: start on day 2 of therapy (08/21/24); already received first dose 08/20/24 polyethylene glycol 3350 17 gram/dose powder 17 g feeding tube DAILY PRN (Reason: Constipation) metoprolol tartrate 25 mg tablet 25 mg feeding tube BID atorvastatin 40 mg tablet 40 mg PO HS ipratropium-albuterol 0.5 mg-3 mg(2.5 mg base)/3 mL solution for nebulization 3 ml INHALATION Q6H PRN (Reason: Shortness Of Breath) artificial tears solution Drops 1 drp OPHTHALMIC (EYE) PRN PRN (Reason: Dry Eye(S)) Rx Instructions: instill 1 drop per eye as needed for dry eye thiamine HCl (vitamin B1) 100 mg Tablet 100 mg feeding tube DAILY famotidine 20 mg tablet 20 mg feeding tube BID valproic acid (as sodium salt) 250 mg/5 mL solution 1,250 mg feeding tube QID magnesium citrate [Citroma] Solution 296 ml PO DAILY PRN (Reason: Constipation) Rx Instructions: if no results from enema folic acid 1 mg tablet 1 mg feeding tube DAILY levetiracetam 100 mg/mL solution 1,500 mg feeding tube BID calcium carbonate 500 mg/5 mL (1,250 mg/5 mL) Suspension 1,250 mg PO Q6H PRN (Reason: Heartburn) lacosamide 10 mg/mL solution 200 mg feeding tube BID clobazam 10 mg tablet 10 mg feeding tube DAILY Eliquis 5 mg Tablet 5 mg feeding tube BID aspirin 81 mg Tablet,Chewable 81 mg feeding tube DAILY acetaminophen 650 mg/20.3 mL Suspension 650 mg feeding tube Q4H PRN (Reason: Pain (Scale Score 1-3)) meropenem 1 gram Recon Soln 1 g IV Q8H Qty: 8 0RF Follow-up/Referrals: Lauro,MD Burke [Primary Care Provider] -
[2024-10-18 16:01] LABS: Basophils Percent Auto 0.2 % (0.2-1.2); Eosinophils Absolute Auto 0.3 K/mm3 (0-0.3); Eosinophils Percent Auto 2.8 % (0-4.4); Hematocrit 45.8 % (42.0-52.0); Hemoglobin 14.9 g/dL (14.0-18.0); Immature Granulocyte Absolute 0.03 K/mm3 (0.00-0.031); Immature Granulocyte Percent A 0.3 % (0-0.5); Lymphocytes Absolute Auto 1.76 K/mm3 (0.9-3.2); Lymphocytes Percent Auto 15.8 % (18.3-44.2); Mean Corpuscular HGB Conc 32.5 g/dl (32-36); Mean Corpuscular Volume 98.3 fl (80-100); Mean Platelet Volume 12.9 fl (7.4-10.4); Monocytes Absolute Auto 0.6 K/mm3 (0.1-0.6); Monocytes Percent Auto 5.3 % (2.6-8.5); Neutrophils Absolute Auto 8.4 K/mm3 (1.3-6.7); Neutrophils Percent Auto 75.6 % (45.5-73.1); Platelet Count Result 172 k/mm3 (150-375); Red Blood Count 4.66 M/mm3 (4.6-6.20); Red Cell Distribution Width 13.2 % (11.5-14.5); White Blood Count 11.1 K/mm3 (4.5-10.0)
[2024-10-18 16:24] LABS: Alanine Aminotransferase 35 U/L (6-50); Albumin Level 4.2 g/dL (3.5-5.1); Alkaline Phosphatase 116 U/L (38-126); Anion Gap 7 mmol/L (4-12); Aspartate Amino Transferase 37 U/L (17-59); Bilirubin,Total 0.7 mg/dL (0.2-1.3); Blood Urea Nitrogen 11 mg/dL (9-20); Calcium 9.9 mg/dL (8.4-10.2); Carbon Dioxide 30 mmol/L (22-30); Chloride 103 mmol/L (98-107); Estimated Glomerular Filt Rate > 60; Glucose 110 mg/dL (65-110); Potassium 4.3 mmol/L (3.4-5.0); Sodium 140 mmol/L (137-145)
[2024-10-18] MEDS: ONDANSETRON INJ 4 MG/2 ML VIAL IV PUSH (16:24)
[2024-10-18 17:04] LABS: Lipase 16047 U/L (23-300)
[2024-10-18] MEDS: LACTATED RINGERS 1,000 ML 125 ML IV CONT (17:41)
[2024-10-18] MEDS: LACTATED RINGERS 500 ML 999 ML IV CONT (17:42)
--- NOTE | 2024-10-18 17:45 | PC.NURSE ---
PHLEBOTOMY CALLED FOR BLOOD DRAW FOR CULTURES X2 AND LACTIC SINCE PT DIFFICULT STICK THAT REQUIRED ULTRASOUND IV PLACEMENT THIS VISIT.
--- NOTE | 2024-10-18 18:51 | PC.NURSE ---
2ND CALL TO PHLEBOTOMY WHO STATES THEY WILL BE HERE [facility]
--- NOTE | 2024-10-18 19:30 | PC.NURSE ---
LR was transfusing prior to this RN arrival.
--- NOTE | 2024-10-18 19:31 | PM.IMHP ---
H&P: HPI History of Present Illness Date/Time: 10/18/24 21:00 Chief Complaint: Acute cholecystitis/Pancreatitis, Seizure, Dehydration Narrative: This is a 64 year old male patient who is [facility] admitted to the hospital for findings of acute cholecystitis with concern for choledocholithiasis given concurrent finding of highly elevated lipase. Patient found to be tachycardic and tachypneic with elevated WBC and severely elevated lactic acid qualifying for severe sepsis. IV Zosyn initiated in ER. GI and General Surgery consulted with MRCP and NPO status ordered. Patient will be managed with IV antibiotics, pain and nausea medications as well as IV conversion of anti-epileptic medications. Additionally G-tube was found to be malpositioned via CT scan and ER provider repositioned this after imaging findings. Patient has a history of prior CVAs leaving him with profound deficits including trach and G-tube dependency. He has also undergone left above the knee amputation. He has history of atrial fibrillation and is usually on Eliquis which will be held. Patient was seen yesterday at [facility] ER with similar symptoms and reportedly had normal appearing CT scan and was returned to [facility]. Today patient had continued vomiting so he was transported to this ER for reevaluation. Patient is full code status per existing paperwork. Labs relatively reassuring except for elevated lactic acid. 10/19/24 @ 0100: Patient had a 2 minute generalized seizure with rightward deviation of eyes in addition to tonic/clonic movements of body and irregular respiratory pattern. IV Ativan 2 mg given. IV Valproic acid started as well as IV Keppra. Medication reconciliation was complicated by dose changes over time indicating same medications as previously on file but several dosing regimens were different, especially for seizure medications. Additionally, tramadol is a home medication which has contraindications in patients with seizures. This medication will not be restarted on this med reconciliation. Valproic acid level is low so we will tweak dosing and get a trough level before 5th dose. Review of Systems Review of Systems: ROS unobtainable: Yes unobtainable due to mental status PMFSH Past Medical History Medical History Deep venous thrombosis of upper extremity Benign prostatic hyperplasia Cerebrovascular accident Residual expressive aphasia, dysphagia, and left-sided weakness. Chronic obstructive pulmonary disease Esophageal diverticulum Gastroparesis Iron deficiency anemia Vascular dementia with psychotic disturbance Seizure disorder Surgical History Surgical History History of gastrostomy tube placement History of tracheostomy History of left above knee amputation Family History Family History Other Unknown family medical history Social History Social History Social History: Surrogate medical decision maker: Adriane Hilliard, sibling. Code status: Full code. 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 Additional gender identity comments: Never Spiritual care concerns: No Meds Home Medications and Allergies Home Medications ?Medication ?Instructions ?Recorded ?Confirmed ?Type metoprolol tartrate 25 mg tablet 25 mg feeding tube BID 12/18/22 10/18/24 History polyethylene glycol 3350 17 17 g feeding tube DAILY PRN 12/18/22 10/18/24 History gram/dose oral powder Constipation bisacodyl 10 mg rectal suppository 10 mg RECTAL DAILY PRN Constipation 02/11/23 10/18/24 History sennosides 8.6 mg tablet (senna) 8.6 mg feeding tube BID 02/11/23 10/18/24 History guaifenesin 100 mg/5 mL oral liquid 300 mg feeding tube BID PRN Cough 07/08/23 10/18/24 History magnesium hydroxide 400 mg/5 mL 30 ml PO HS PRN Constipation 12/13/23 10/18/24 History oral suspension (Milk of Magnesia) atorvastatin 40 mg tablet 40 mg PO HS 02/10/24 10/18/24 History calcium carbonate 500 mg/5 mL (as 1,250 mg PO Q6H PRN Heartburn 02/10/24 10/18/24 History calcium carb 1,250 mg/5 mL) oral suspension clobazam 10 mg tablet 10 mg feeding tube DAILY 02/10/24 10/18/24 History folic acid 1 mg tablet 1 mg feeding tube DAILY 02/10/24 10/18/24 History ipratropium 0.5 mg-albuterol 3 mg 3 ml inhalation Q6H PRN Shortness 02/10/24 10/18/24 History (2.5 mg base)/3 mL nebulization Of Breath soln lacosamide 10 mg/mL oral solution 200 mg feeding tube BID 02/10/24 10/18/24 History levetiracetam 100 mg/mL oral 1,750 mg feeding tube BID 02/10/24 10/19/24 History solution magnesium citrate (Citroma oral 296 ml PO DAILY PRN Constipation 02/10/24 10/18/24 History solution) thiamine HCl (vitamin B1) 100 mg 100 mg feeding tube DAILY 02/10/24 10/18/24 History tablet valproic acid (as sodium salt) 250 500 mg feeding tube Q8H 02/10/24 10/19/24 History mg/5 mL oral solution acetaminophen 650 mg/20.3 mL oral 650 mg feeding tube Q4H PRN Pain 03/30/24 10/18/24 History suspension (Scale Score 1-3) aspirin 81 mg chewable tablet 81 mg feeding tube DAILY 03/30/24 10/18/24 History finasteride 5 mg tablet 5 mg feeding tube DAILY 10/18/24 10/18/24 History glycopyrrolate 2 mg tablet 2 mg feeding tube Q8H 10/18/24 10/18/24 History metoclopramide HCl 10 mg tablet 10 mg feeding tube TID 10/18/24 10/18/24 History ondansetron HCl 4 mg tablet 4 mg feeding tube Q6H PRN nausea 10/18/24 10/18/24 History and vomiting pantoprazole 40 mg tablet,delayed 40 mg PO Q12H 10/18/24 10/18/24 History release tramadol 50 mg tablet 25 mg feeding tube Q6H PRN pain 10/18/24 10/18/24 History Allergies Allergy/AdvReac Type Severity Reaction Status Date / Time clonazepam Allergy Unknown Unknown Verified 08/20/24 06:49 Vital Signs Vital Signs - 24 hr 10/18/24 14:17 10/18/24 15:30 10/18/24 16:30 Temperature 37.0 C Pulse Rate 100 103 H 112 H Respiratory Rate 20 20 22 H Blood Pressure 182/96 H 208/111 H 165/104 H Pulse Oximetry 96 97 96 Oxygen Delivery Nasal Cannula Oxygen Flow Rate 2 10/18/24 17:30 10/18/24 18:48 Temperature Pulse Rate 110 H 109 H Respiratory Rate 22 H 22 H Blood Pressure 180/111 H 183/100 H Pulse Oximetry 97 96 Oxygen Delivery Oxygen Flow Rate Exam Narrative: GENERAL: Chronically ill-appearing, well-nourished, and in no acute distress. HEAD: Normocephalic, atraumatic. EYES: PERRL and EOMI. NECK: Supple. Tracheostomy with no significant plugging of the tube. CHEST: Clear to auscultation. No respiratory distress. HEART: Regular rate and rhythm. Normal peripheral pulses. ABDOMEN: Mildly distended abdomen without significant tenderness. Peg site appears normal. Normal bowel sounds. EXTREMITIES: Right lower extremity in cushion boot. Left AKA. NEURO: Awake, alert, and at neurologic baseline. H&P: Results Labs Labs: Short CBC 10/18/24 Range/Units 15:47 WBC 11.1 H (4.5-10.0) K/mm3 Hgb 14.9 (14.0-18.0) g/dL Hct 45.8 (42.0-52.0) % Plt Count 172 (150-375) k/mm3 BMP 10/18/24 15:47 Sodium 140 Potassium 4.3 Chloride 103 Carbon Dioxide 30 BUN 11 Creatinine 0.60 L Glucose 110 Calcium 9.9 Liver Function 10/18/24 Range/Units 15:47 Total Bilirubin 0.7 (0.2-1.3) mg/dL AST 37 (17-59) U/L ALT 35 (6-50) U/L Alkaline Phosphatase 116 (38-126) U/L Albumin 4.2 (3.5-5.1) g/dL Pulse Oximetry SpO2 results: 96-97% on trach collar Attestation: I personally reviewed and interpreted this pulse oximetry as follows: Interpretation: Patient continues to require trach collar oxygenation with humidity (chronic) Imaging CT scan - abdomen: Radiologist's impression: CLINICAL INDICATION: Nausea vomiting and abdominal distention COMPARISON: 06/07/2024. TECHNIQUE: Multiple contiguous axial images of the abdomen and pelvis were performed following the administration of with 100 mL Omnipaque-350 intravenous contrast The dose-length product (DLP) was 873.03 mGy-cm. Automated exposure control and iterative reconstruction technique were employed. FINDINGS/OBSERVATIONS: Visualized lower thorax: Bibasilar atelectasis, unchanged from prior. The heart is enlarged without pericardial effusion. Small hiatal hernia is present. Liver: The liver demonstrates homogeneous enhancement and is not enlarged. Gallbladder and biliary system: The gallbladder is markedly distended with surrounding free fluid and layering stones. Pancreas: The pancreas enhances homogeneously without ductal dilatation. Spleen: The spleen enhances homogeneously and is not enlarged. Kidneys: The bilateral kidneys enhance symmetrically without hydronephrosis or renal calculi. Adrenal glands: Unremarkable. Gastrointestinal tract: The retention balloon of the percutaneous gastrostomy has migrated to the distal stomach (rather than along the undersurface of the anterior abdominal wall). Appendix: The air-filled appendix is of normal caliber (axial series, images 138 through 145). Vasculature: Unremarkable. Lymph nodes: No pathologically enlarged or morphologically suspicious lymph nodes within the retroperitoneum or at the root of the mesentery. Pelvic structures: The bladder is distended, and otherwise unremarkable. The prostate gland is not enlarged. Body wall and musculoskeletal: Small fat-containing umbilical hernia. Anterior wedge compression of the vertebral body of L3, unchanged from prior. Remaining vertebral bodies are unremarkable. IMPRESSION: Findings consistent consistent with acute cholecystitis, as detailed above. Malpositioning of the balloon for the percutaneous gastrostomy, as detailed above. Reviewed, dictated and finalized at location A. Assessment and Plan Assessment and plan (1) Cholecystitis: Code(s): K81.9 - Cholecystitis, unspecified Status: Acute Assessment and Plan: -Nausea, vomiting, abdominal distension -CT findings of markedly distended gallbladder with layering stones and surrounding free fluid -Lipase highly elevated raising concern for choledocholithiasis with acute pancreatitis -IV Zosyn started in ER -NPO status (except vital medications) -PRN pain and nausea medication -GI and General Surgery consulted by ER provider -MRCP ordered for tomorrow -Hold Eliqusalas SCDs for VTE prophylaxis -Morning labs ordered -IV fluids given for elevated lipase and highly elevated lactic acid -Ordered STAT procalcitonin, ESR, CRP with daily recheck x3 (2) Severe sepsis: Code(s): A41.9 - Sepsis, unspecified organism; R65.20 - Severe sepsis without septic shock Status: Acute Assessment and Plan: Due to cholecystitis, see above (3) Pancreatitis: Code(s): K85.90 - Acute pancreatitis without necrosis or infection, unspecified Status: Acute Assessment and Plan: See above, concern for choledocholithiasis (4) Malfunction of gastrostomy tube: Code(s): K94.23 - Gastrostomy malfunction Status: Acute Assessment and Plan: -CT abdomen pelvis showed G-tube malpositioned too deep within the stomach -This was pulled back by ER provider -Current NPO status (except vital medications) due to acute cholecystitis and pancreatitis (5) History of multiple strokes: Code(s): Z86.73 - Personal history of transient ischemic attack (TIA), and cerebral infarction without residual deficits Status: Chronic Assessment and Plan: -Non-verbal with trach and G-tube chronically due to prior CVAs with significant residual deficits (6) Epilepsy: Code(s): G40.909 - Epilepsy, unspecified, not intractable, without status epilepticus Status: Acute Assessment and Plan: -History of epilepsy, on multiple medications which will be continued -Likely convert valproic acid and Keppra to IV formulations due to NPO status -Obtain valproic acid level now -Seizure precautions ordered -Valproic acid level is low -halfway paperwork with last medication dosing documented at 0150 on 10/17/24 (7) Acute lactic acidosis: Code(s): E87.21 - Acute metabolic acidosis Status: Acute Assessment and Plan: -Likely due to severe sepsis related to acute cholecystitis -Improvement on recheck after additional IV fluids -May rise again by morning after seizure -Patient profoundly dehydrated upon arrival to ER. Quality VTE Prophylaxis VTE prophylaxis: mechanical ordered If No VTE Prophylaxis Answer both mechanical and pharmacologic: Reason no pharmacologic proph: medical contraindication (Bleeding risk if patient undergoes ERCP or cholecystectomy) active bleeding/bleeding risk Total time spent on this patient 120 minutes, inclusive of below listed critical care time Due to a high probability of clinically significant, life threatening deterioration, the patient required my highest level of preparedness to intervene emergently and I personally spent this critical care time directly and personally managing the patient. This critical care time included obtaining a history; examining the patient; pulse oximetry; ordering and review of studies; arranging urgent treatment with development of a management plan; evaluation of patient's response to treatment; frequent reassessment; and discussions with other providers. It was exclusive of separately billable procedures and treating other patients and teaching time. Please see Assessment and Plan section and the rest of the note for further information on patient assessment and treatment. Critical Care time: 45 minutes Hospitalist MIPS Advance Care Plan I have confirmed that the patient's Advanced Care Plan is present, code status is documented, or surrogate decision maker is listed in patient medical record.: Yes Medication Reconciliation I have utilized all available resources to obtain, update and review the patients current medications (includes all prescriptions, OTC, herbals, cannabis, and nutritional supplements).: Yes
[2024-10-18] MEDS: PIPERACILLN/TAZ 3.375GM/NS50ML 3.375 GM/50 ML BAG IVPB (19:36)
[2024-10-18 19:48] LABS: Lactic Acid Reflex 7.8 mmol/L (0.7-2.0)
[2024-10-18] MEDS: LACTATED RINGERS 300 ML 999 ML IV CONT (20:50)
[2024-10-18 21:23] LABS: Reflex Lactic Acid Yes or No Add Lactic
[2024-10-18] MEDS: LACTATED RINGERS 1,000 ML 999 ML IV CONT ×2 (21:25→21:27)
[2024-10-18] MEDS: STAT BOLUS COMMUNICATION ORDER 2241 ML IV CONT (21:28)
[2024-10-18] MEDS: [UNRECOGNIZED DRUG - OTHER] 1 EACH XX (21:30)
--- NOTE | 2024-10-18 21:30 | PC.NURSE ---
ED respiratory at bedside suctioning trach.
[2024-10-18 21:31] LABS: Fractional Inspired Oxygen 28 %; HCO3 VBG 27.6 mEq/l (24.0-30.0); PCO2 VBG 53.5 mmHg (42.0-48.0); PO2 VBG 34.9 mmHg (35.0-45.0); pH VBG 7.331 (7.300-7.400)
[2024-10-18 21:33] LABS: Device OTHER DEVICE
[2024-10-18 21:46] LABS: CRP 1.8 mg/dL (<1.0)
--- NOTE | 2024-10-18 21:48 | PC.NURSE ---
Report called to ALFRED Ospina @ 2146. Pt to be taken to floor after receiving ct scan.
[2024-10-18 21:52] LABS: Erythrocyte Sedimentation Rate 17 mm/hr (0-20)
[2024-10-18 22:01] LABS: Valproic Acid 22.9 ug/mL (50-120)
[2024-10-18 22:28] LABS: Procalcitonin 0.1 ng/mL
[2024-10-19] VITALS (25 sets, daily range): BP systolic 151–181; BP diastolic 79–107; PULSE 81–104; RESP 18–22; TEMP 36.5–37.2; O2SAT 93–99; BMI 22.9
[2024-10-19] MEDS: PIPERACILLN/TAZ 3.375GM/NS50ML 3.375 GM/50 ML BAG IVPB ×4 (00:06→17:27)
[2024-10-19 00:10] LABS: Lactic Acid 3.2 mmol/L (0.7-2.0)
[2024-10-19] MEDS: LACTATED RINGERS 1,000 ML 125 ML IV CONT ×3 (00:21→18:27)
[2024-10-19] MEDS: LORazepam INJ (*CRX) 2 MG/ML VIAL IV PUSH (01:02)
[2024-10-19] MEDS: levETIRAcetam 1500MG/NACL100ML 1,500 MG/100 ML BAG 400 MG IVPB (01:05)
[2024-10-19] MEDS: METOPROLOL TARTRATE 25 MG TABLET FEED TUBE ×3 (01:10→20:57)
[2024-10-19] MEDS: GLYCOPYRROLATE 1 MG TABLET 2 MG FEED TUBE ×4 (01:10→20:56)
[2024-10-19] MEDS: LACOSAMIDE (*CRX) 200 MG TABLET FEED TUBE ×3 (01:19→20:57)
[2024-10-19] MEDS: VALPROATE SODIUM INJ 500 MG in DEXTROSE 5% IN WATER 50 ML 55 MG IVPB ×4 (01:23→17:28)
[2024-10-19 02:56] LABS: Glucose Point of Care 115 mg/dl (65-105)
[2024-10-19 05:29] LABS: Basophils Percent Auto 0.1 % (0.2-1.2); Eosinophils Absolute Auto 0.1 K/mm3 (0-0.3); Eosinophils Percent Auto 1.1 % (0-4.4); Hemoglobin 14.6 g/dL (14.0-18.0); Immature Granulocyte Absolute 0.02 K/mm3 (0.00-0.031); Immature Granulocyte Percent A 0.2 % (0-0.5); Lymphocytes Absolute Auto 2.07 K/mm3 (0.9-3.2); Lymphocytes Percent Auto 22.7 % (18.3-44.2); Mean Corpuscular HGB Conc 33.2 g/dl (32-36); Mean Corpuscular Hemoglobin 32.4 pg (26-34); Mean Corpuscular Volume 97.6 fl (80-100); Mean Platelet Volume 12.8 fl (7.4-10.4); Monocytes Absolute Auto 0.7 K/mm3 (0.1-0.6); Monocytes Percent Auto 7.1 % (2.6-8.5); Neutrophils Absolute Auto 6.3 K/mm3 (1.3-6.7); Neutrophils Percent Auto 68.8 % (45.5-73.1); Platelet Count Result 172 k/mm3 (150-375); Red Blood Count 4.51 M/mm3 (4.6-6.20); Red Cell Distribution Width 13.1 % (11.5-14.5); White Blood Count 9.1 K/mm3 (4.5-10.0)
[2024-10-19 05:45] LABS: Alanine Aminotransferase 32 U/L (6-50); Albumin Level 4.1 g/dL (3.5-5.1); Alkaline Phosphatase 103 U/L (38-126); Anion Gap 9 mmol/L (4-12); Aspartate Amino Transferase 34 U/L (17-59); Bilirubin,Total 0.7 mg/dL (0.2-1.3); Blood Urea Nitrogen 7 mg/dL (9-20); CRP 3.1 mg/dL (<1.0); Calcium 9.6 mg/dL (8.4-10.2); Carbon Dioxide 29 mmol/L (22-30); Chloride 102 mmol/L (98-107); Estimated CRCL calculation 122 ml/min; Estimated Glomerular Filt Rate > 60; Glucose 104 mg/dL (65-110); Lactic Acid Reflex 2.2 mmol/L (0.7-2.0); Magnesium 1.6 mg/dL (1.6-2.3); Potassium 3.9 mmol/L (3.4-5.0); Sodium 140 mmol/L (137-145)
[2024-10-19 05:48] LABS: Lipase 3475 U/L (23-300)
[2024-10-19 05:58] LABS: Procalcitonin 0.1 ng/mL
[2024-10-19 06:44] LABS: Erythrocyte Sedimentation Rate 31 mm/hr (0-20)
--- NOTE | 2024-10-19 07:20 | P.CONGI_ITS ---
Assessment and Plan Assessment and plan (1) Cholecystitis: Code(s): K81.9 - Cholecystitis, unspecified Status: Acute (2) Acute pancreatitis: Code(s): K85.90 - Acute pancreatitis without necrosis or infection, unspecified Status: Acute Assessment and Plan: The patient has acute biliary pancreatitis based on the markedly elevated lipase and abdominal pain. However, it is not necrotizing and fluid replacement has been initiated along with antibiotics to address acute cholecystitis. we will continue to monitor his hematocrit as an indicator of adequate volume resuscitation which is the main measure in acute pancreatitis. GI Consult Note Consult date/time: 10/19/24 07:20 Reason for consult: acute pancreatitis HPI: Bi Tabor is a 64-year-old nonverbal male, a senior living resident with a history of CVA and COPD, and has a tracheostomy and a PEG tube. He presented to the [place] ER with persistent nausea and vomiting, symptoms he had upon discharge from [facility] the day prior. A CT scan of the abdomen revealed a mild increase in pancreatic size with adequate perfusion, along with gallbladder overdistention and pericholecystic fluid, findings suggestive of acute cholecystitis. Following discussion with the emergency room physician, he was started on intravenous Lactated Ringer's at a rate of 125 mL/hour (1.5 cc/kg/hr) and Zosyn was initiated given the evidence of acute cholecystitis. His hematocrit was 45.8% yesterday and 44% this morning. Other laboratory data from this morning showed a sodium of 140, potassium 3.6, creatinine 0.55, BUN 7, AST 34, ALT 32, bilirubin 0.7, all within normal limits. However, his lipase was significantly elevated at 3475, while his procalcitonin was 0.1. Review of Systems 2 Review of Systems: All systems reviewed & are unremarkable except as noted in HPI and below PMFSH Past Medical History Medical History Deep venous thrombosis of upper extremity Benign prostatic hyperplasia Cerebrovascular accident Residual expressive aphasia, dysphagia, and left-sided weakness. Chronic obstructive pulmonary disease Esophageal diverticulum Gastroparesis Iron deficiency anemia Vascular dementia with psychotic disturbance Seizure disorder Surgical History Surgical History History of gastrostomy tube placement History of tracheostomy History of left above knee amputation Family History Family History Other Unknown family medical history Social History Social History Social History: Surrogate medical decision maker: Adriane Hilliard, sibling. Code status: Full code. 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 Additional gender identity comments: Never Spiritual care concerns: No Meds Home Medications and Allergies Home Medications ?Medication ?Instructions ?Recorded ?Confirmed ?Type metoprolol tartrate 25 mg tablet 25 mg feeding tube BID 12/18/22 10/18/24 History polyethylene glycol 3350 17 17 g feeding tube DAILY PRN 12/18/22 10/18/24 History gram/dose oral powder Constipation bisacodyl 10 mg rectal suppository 10 mg RECTAL DAILY PRN Constipation 02/11/23 10/18/24 History sennosides 8.6 mg tablet (senna) 8.6 mg feeding tube BID 02/11/23 10/18/24 History guaifenesin 100 mg/5 mL oral liquid 300 mg feeding tube BID PRN Cough 07/08/23 10/18/24 History magnesium hydroxide 400 mg/5 mL 30 ml PO HS PRN Constipation 12/13/23 10/18/24 History oral suspension (Milk of Magnesia) atorvastatin 40 mg tablet 40 mg PO HS 02/10/24 10/18/24 History calcium carbonate 500 mg/5 mL (as 1,250 mg PO Q6H PRN Heartburn 02/10/24 10/18/24 History calcium carb 1,250 mg/5 mL) oral suspension clobazam 10 mg tablet 10 mg feeding tube DAILY 02/10/24 10/18/24 History folic acid 1 mg tablet 1 mg feeding tube DAILY 02/10/24 10/18/24 History ipratropium 0.5 mg-albuterol 3 mg 3 ml inhalation Q6H PRN Shortness 02/10/24 10/18/24 History (2.5 mg base)/3 mL nebulization Of Breath soln lacosamide 10 mg/mL oral solution 200 mg feeding tube BID 02/10/24 10/18/24 History levetiracetam 100 mg/mL oral 1,750 mg feeding tube BID 02/10/24 10/19/24 History solution magnesium citrate (Citroma oral 296 ml PO DAILY PRN Constipation 02/10/24 10/18/24 History solution) thiamine HCl (vitamin B1) 100 mg 100 mg feeding tube DAILY 02/10/24 10/18/24 History tablet valproic acid (as sodium salt) 250 500 mg feeding tube Q8H 02/10/24 10/19/24 History mg/5 mL oral solution acetaminophen 650 mg/20.3 mL oral 650 mg feeding tube Q4H PRN Pain 03/30/24 10/18/24 History suspension (Scale Score 1-3) aspirin 81 mg chewable tablet 81 mg feeding tube DAILY 03/30/24 10/18/24 History finasteride 5 mg tablet 5 mg feeding tube DAILY 10/18/24 10/18/24 History glycopyrrolate 2 mg tablet 2 mg feeding tube Q8H 10/18/24 10/18/24 History metoclopramide HCl 10 mg tablet 10 mg feeding tube TID 10/18/24 10/18/24 History ondansetron HCl 4 mg tablet 4 mg feeding tube Q6H PRN nausea 10/18/24 10/18/24 History and vomiting pantoprazole 40 mg tablet,delayed 40 mg PO Q12H 10/18/24 10/18/24 History release tramadol 50 mg tablet 25 mg feeding tube Q6H PRN pain 10/18/24 10/18/24 History Allergies Allergy/AdvReac Type Severity Reaction Status Date / Time clonazepam Allergy Unknown Unknown Verified 08/20/24 06:49 Vital Signs Vital Signs - 24 hr 10/18/24 14:17 10/18/24 15:30 10/18/24 16:30 Temperature 98.6 F Pulse Rate 100 103 H 112 H Respiratory Rate 20 20 22 H Blood Pressure 182/96 H 208/111 H 165/104 H Pulse Oximetry 96 97 96 Oxygen Delivery Nasal Cannula Oxygen Flow Rate 2 Fraction of Inspired Oxygen 10/18/24 17:30 10/18/24 18:48 10/18/24 21:44 Temperature Pulse Rate 110 H 109 H 97 Respiratory Rate 22 H 22 H 20 Blood Pressure 180/111 H 183/100 H 198/104 H Pulse Oximetry 97 96 100 Oxygen Delivery Oxygen Flow Rate Fraction of Inspired Oxygen 10/18/24 22:14 10/18/24 23:07 10/18/24 23:30 Temperature 98.3 F Pulse Rate 94 104 H Respiratory Rate 16 18 Blood Pressure 184/92 H Pulse Oximetry 100 98 96 Oxygen Delivery Trach Collar High Flow Therapy with Tr Oxygen Flow Rate 1 35 Fraction of Inspired Oxygen 30 10/19/24 00:00 10/19/24 00:30 10/19/24 01:10 Temperature Pulse Rate 86 104 H Respiratory Rate Blood Pressure Pulse Oximetry 97 Oxygen Delivery High Flow Therapy with Tr Oxygen Flow Rate 35 Fraction of Inspired Oxygen 30 10/19/24 02:00 10/19/24 02:40 10/19/24 03:40 Temperature 97.7 F Pulse Rate 84 88 Respiratory Rate 20 Blood Pressure 160/88 H Pulse Oximetry 96 96 Oxygen Delivery High Flow Therapy with Tr Oxygen Flow Rate 25 Fraction of Inspired Oxygen 28 10/19/24 04:00 10/19/24 06:00 Temperature Pulse Rate 90 86 Respiratory Rate Blood Pressure Pulse Oximetry Oxygen Delivery Oxygen Flow Rate Fraction of Inspired Oxygen Exam 2 Narrative: GENERAL: Chronically ill-appearing, well-nourished, and in no acute distress. HEAD: Normocephalic, atraumatic. EYES: PERRL and EOMI. NECK: Supple. Tracheostomy with no significant plugging of the tube. CHEST: Clear to auscultation. No respiratory distress. HEART: Regular rate and rhythm. Normal peripheral pulses. ABDOMEN: Mildly distended abdomen without significant tenderness. Peg site appears normal. Normal bowel sounds. EXTREMITIES: Right lower extremity in cushion boot. Left AKA. NEURO: Awake, alert, and at neurologic baseline. Results Labs 10/19/24 05:22 10/19/24 05:22 Labs: Short CBC 10/18/24 10/19/24 Range/Units 15:47 05: WBC 11.1 H 9.1 (4.5-10.0) K/mm3 Hgb 14.9 14.6 (14.0-18.0) g/dL Hct 45.8 44.0 (42.0-52.0) % Plt Count 172 172 (150-375) k/mm3 BMP 10/18/24 10/19/24 15:47 05:22 Sodium 140 140 Potassium 4.3 3.9 Chloride 103 102 Carbon Dioxide 30 29 BUN 11 7 L Creatinine 0.60 L 0.55 L Glucose 110 104 Calcium 9.9 9.6 Liver Function 10/18/24 10/19/24 Range/Units 15:47 05:22 Total Bilirubin 0.7 0.7 (0.2-1.3) mg/dL AST 37 34 (17-59) U/L ALT 35 32 (6-50) U/L Alkaline Phosphatase 116 103 (38-126) U/L Albumin 4.2 4.1 (3.5-5.1) g/dL
[2024-10-19] MEDS: MAGNESIUM SULF 2 GM/WATER 50ML 2 GM/50 ML BAG IVPB (09:47)
--- NOTE | 2024-10-19 09:49 | PM.IMPN ---
Progress Note: A&P Assessment and Plan (1) Cholecystitis: Code(s): K81.9 - Cholecystitis, unspecified Status: Acute Assessment and Plan: -Nausea, vomiting, abdominal distension -CT findings of markedly distended gallbladder with layering stones and surrounding free fluid -Lipase highly elevated raising concern for choledocholithiasis with acute pancreatitis -IV Zosyn started in ER -NPO status (except vital medications) -PRN pain and nausea medication -GI and General Surgery consulted by ER provider -MRCP ordered for tomorrow -Hold Eliquis, SCDs for VTE prophylaxis -Morning labs ordered -IV fluids given for elevated lipase and highly elevated lactic acid -Ordered STAT procalcitonin, ESR, CRP with daily recheck x3 (2) Severe sepsis: Code(s): A41.9 - Sepsis, unspecified organism; R65.20 - Severe sepsis without septic shock Status: Acute Assessment and Plan: Due to cholecystitis, see above (3) Pancreatitis: Code(s): K85.90 - Acute pancreatitis without necrosis or infection, unspecified Status: Acute Assessment and Plan: See above, concern for choledocholithiasis (4) Malfunction of gastrostomy tube: Code(s): K94.23 - Gastrostomy malfunction Status: Acute Assessment and Plan: -CT abdomen pelvis showed G-tube malpositioned too deep within the stomach -This was pulled back by ER provider -Current NPO status (except vital medications) due to acute cholecystitis and pancreatitis (5) History of multiple strokes: Code(s): Z86.73 - Personal history of transient ischemic attack (TIA), and cerebral infarction without residual deficits Status: Chronic Assessment and Plan: -Non-verbal with trach and G-tube chronically due to prior CVAs with significant residual deficits (6) Epilepsy: Code(s): G40.909 - Epilepsy, unspecified, not intractable, without status epilepticus Status: Acute Assessment and Plan: -History of epilepsy, on multiple medications which will be continued -Likely convert valproic acid and Keppra to IV formulations due to NPO status -Obtain valproic acid level now -Seizure precautions ordered -Valproic acid level is low -snf paperwork with last medication dosing documented at 0150 on 10/17/24 (7) Acute lactic acidosis: Code(s): E87.21 - Acute metabolic acidosis Status: Acute Assessment and Plan: -Likely due to severe sepsis related to acute cholecystitis -Improvement on recheck after additional IV fluids -May rise again by morning after seizure -Patient profoundly dehydrated upon arrival to ER. Subjective Date/time seen: 10/19/24 09:49 Interval history: Patient is admitted in the setting of cholecystitis and pancreatitis. Patient is a high risk candidate for surgery. Surgery is following. No episodes of seizure during the daytime Review of Systems Review of Systems: ROS unobtainable: Yes unobtainable due to mental status Exam Narrative: GENERAL: Chronically ill-appearing, well-nourished, and in no acute distress. HEAD: Normocephalic, atraumatic. EYES: PERRL and EOMI. NECK: Supple. Tracheostomy with no significant plugging of the tube. CHEST: Clear to auscultation. No respiratory distress. HEART: Regular rate and rhythm. Normal peripheral pulses. ABDOMEN: Mildly distended abdomen without significant tenderness. Peg site appears normal. Normal bowel sounds. EXTREMITIES: Right lower extremity in cushion boot. Left AKA. NEURO: Awake, alert, and at neurologic baseline. Objective Data Vital Signs Vital Signs: Vital Signs - 24 hr 10/18/24 14:17 10/18/24 15:30 10/18/24 16:30 Temperature 98.6 F Pulse Rate 100 103 H 112 H Respiratory Rate 20 20 22 H Blood Pressure 182/96 H 208/111 H 165/104 H Pulse Oximetry 96 97 96 Oxygen Delivery Nasal Cannula Oxygen Flow Rate 2 Fraction of Inspired Oxygen 10/18/24 17:30 10/18/24 18:48 10/18/24 21:44 Temperature Pulse Rate 110 H 109 H 97 Respiratory Rate 22 H 22 H 20 Blood Pressure 180/111 H 183/100 H 198/104 H Pulse Oximetry 97 96 100 Oxygen Delivery Oxygen Flow Rate Fraction of Inspired Oxygen 10/18/24 22:14 10/18/24 23:07 10/18/24 23:30 Temperature 98.3 F Pulse Rate 94 104 H Respiratory Rate 16 18 Blood Pressure 184/92 H Pulse Oximetry 100 98 96 Oxygen Delivery Trach Collar High Flow Therapy with Tr Oxygen Flow Rate 1 35 Fraction of Inspired Oxygen 30 10/19/24 00:00 10/19/24 00:30 10/19/24 01:10 Temperature Pulse Rate 86 104 H Respiratory Rate Blood Pressure Pulse Oximetry 97 Oxygen Delivery High Flow Therapy with Tr Oxygen Flow Rate 35 Fraction of Inspired Oxygen 30 10/19/24 02:00 10/19/24 02:40 10/19/24 03:40 Temperature 97.7 F Pulse Rate 84 88 Respiratory Rate 20 Blood Pressure 160/88 H Pulse Oximetry 96 96 Oxygen Delivery High Flow Therapy with Tr Oxygen Flow Rate 25 Fraction of Inspired Oxygen 28 10/19/24 04:00 10/19/24 06:00 10/19/24 07:33 Temperature 98.9 F Pulse Rate 90 86 81 Respiratory Rate 22 H Blood Pressure 181/85 H Pulse Oximetry 96 Oxygen Delivery Oxygen Flow Rate Fraction of Inspired Oxygen 10/19/24 09:23 Temperature Pulse Rate Respiratory Rate Blood Pressure Pulse Oximetry 95 Oxygen Delivery High Flow Therapy with Tr Oxygen Flow Rate 25 Fraction of Inspired Oxygen 28 Intake/Output Intake/Output: Intake & Output 10/16/24 10/17/24 10/18/24 10/19/24 23:59 23:59 23:59 23:59 Intake Total 1850 200 Output Total 1700 1700 Balance 150 -1500 Meds/Results Medications: Active Medications Generic Name Dose Route Start Last Admin Trade Name Freq PRN Reason Stop Dose Admin Albuterol/Ipratropium 3 ml 10/19/24 00:22 Ipratropium 0.5 Mg/Albuterol Sulfate 2.5 Mg Ampul.Neb 3 Ml INHALATION Q6HRT PRN Shortness Of Breath Bisacodyl 10 mg 10/19/24 00:22 Bisacodyl 10 Mg Suppository RECTAL DAILY PRN Constipation Clobazam 10 mg 10/19/24 09:00 Clobazam (*Crx) 10 Mg Tablet FEED TUBE DAILY [facility] Folic Acid 1 mg 10/19/24 09:00 Folic Acid 1 Mg Tablet FEED TUBE DAILY TERRELL Glycopyrrolate 2 mg 10/19/24 00:50 10/19/24 06:09 Glycopyrrolate 1 Mg Tablet FEED TUBE 2 mg Q8HR TERRELL Administration Hydromorphone HCl 0.5 mg 10/18/24 19:08 Hydromorphone Hcl Inj (*Crx) 2 Mg/Ml Vial IV PUSH Q4H PRN Pain Rated 7-10 Piperacillin/Tazobactam/Dextrose 3.375 gm in 50 mls @ 100 mls/hr 10/19/24 01:00 10/19/24 06:14 Zosyn 3.375 Gm/Ns 50 Ml IVPB Infused Q6HR TERRELL Infusion Lactated Ringer's 1,000 mls @ 125 mls/hr 10/19/24 00:05 10/19/24 00:21 Lr - Lactated Ringers Iv IV CONT 125 mls/hr .Q8H TERRELL Administration Valproate Sodium 500 mg/ 55 mls @ 55 mls/hr 10/19/24 06:00 10/19/24 06:08 Dextrose IVPB 10/20/24 00:01 55 mls/hr Q6HR TERRELL Administration Valproate Sodium 500 mg/ 55 mls @ 55 mls/hr 10/20/24 06:00 Dextrose IVPB 06,, TERRELL Lacosamide 200 mg 10/19/24 01:10 10/19/24 01:19 Lacosamide (*Crx) 200 Mg Tablet FEED TUBE 200 mg Q12HR TERRELL Administration Levetiracetam 1,750 mg 10/19/24 09:00 Levetiracetam Oral Amparo 500 Mg/5 Ml Udc FEED TUBE Q12HR TERRE[facility] Magnesium Hydroxide 30 ml 10/19/24 00:22 Magnesium Hydroxide Susp 30 Ml Udc PO HS PRN Constipation Metoclopramide HCl 10 mg 10/19/24 09:00 Metoclopramide Hcl 10 Mg Tablet FEED TUBE TID TERRELL Metoprolol Tartrate 25 mg 10/19/24 00:25 10/19/24 01:10 Metoprolol Tartrate 25 Mg Tablet FEED TUBE 25 mg Q12HR TERRELL Administration Ondansetron HCl 4 mg 10/18/24 19:08 Ondansetron Inj 4 Mg/2 Ml Vial IV PUSH Q4H PRN Nausea Senna 8.6 mg 10/19/24 09:00 Sennosides 8.6 Mg Tablet FEED TUBE BID TERRELL Thiamine HCl 100 mg 10/19/24 09:00 Thiamine Hcl 100 Mg Tablet FEED TUBE DAILY [facility] Radiology Results: ITS Impressions Abdomen/Pelvis CT 10/18/24 16:48 IMPRESSION: Findings consistent consistent with acute cholecystitis, as detailed above. Malpositioning of the balloon for the percutaneous gastrostomy, as detailed above. Abdomen CT 10/18/24 22:58 IMPRESSION: Findings consistent with (likely) gallstone pancreatitis, as detailed above. Imaging findings are now much clearer after fluid resuscitation. Redemonstration of a percutaneous gastrostomy with its balloon extending to the level of the pylorus, rather than immediately beneath the undersurface of the anterior abdominal wall for which withdrawal of 4.9 cm (with the balloon continuously inflated) is recommended for optimal radiographic placement. Labs Labs: Laboratory Results - last 24 hr 10/18/24 10/18/24 10/18/24 15:47 19:10 21:12 WBC 11.1 H RBC 4.66 Hgb 14.9 Hct 45.8 MCV 98.3 MCH 32.0 MCHC 32.5 RDW 13.2 Plt Count 172 MPV 12.9 H Immature Gran % (Auto) 0.3 Neut % (Auto) 75.6 H Lymph % (Auto) 15.8 L Nolan % (Auto) 5.3 Eos % (Auto) 2.8 Baso % (Auto) 0.2 Lymph # (Auto) 1.76 Nolan # (Auto) 0.6 Eos # (Auto) 0.3 Baso # (Auto) 0.0 Abs Immat Gran (auto) 0.03 Absolute Neuts (auto) 8.4 H Absolute Nucleated RBC 0.000 Nucleated RBC % 0.0 ESR 17 VBG pH 7.331 VBG pCO2 53.5 H VBG pO2 34.9 L VBG HCO3 27.6 O2 Delivery Device Other device O2 Liters/Min 2.0 FiO2 28 Sodium 140 Potassium 4.3 Chloride 103 Carbon Dioxide 30 Anion Gap 7 BUN 11 Creatinine 0.60 L Estim Creat Clear Calc Not Reportable Estimated GFR > 60 Glucose 110 POC Capillary Glucose Lactic Acid 7.8 H* Calcium 9.9 Magnesium Total Bilirubin 0.7 AST 37 ALT 35 Alkaline Phosphatase 116 C-Reactive Protein 1.8 H Total Protein 8.0 Albumin 4.2 Lipase 60178 H Procalcitonin 0.1 Valproic Acid 22.9 L 10/18/24 10/19/24 10/19/24 23:54 02:53 05:22 WBC 9.1 RBC 4.51 L Hgb 14.6 Hct 44.0 MCV 97.6 MCH 32.4 MCHC 33.2 RDW 13.1 Plt Count 172 MPV 12.8 H Immature Gran % (Auto) 0.2 Neut % (Auto) 68.8 Lymph % (Auto) 22.7 Nolan % (Auto) 7.1 Eos % (Auto) 1.1 Baso % (Auto) 0.1 L Lymph # (Auto) 2.07 Nolan # (Auto) 0.7 H Eos # (Auto) 0.1 Baso # (Auto) 0.0 Abs Immat Gran (auto) 0.02 Absolute Neuts (auto) 6.3 Absolute Nucleated RBC 0.000 Nucleated RBC % 0.0 ESR 31 H VBG pH VBG pCO2 VBG pO2 VBG HCO3 O2 Delivery Device O2 Liters/Min FiO2 Sodium 140 Potassium 3.9 Chloride 102 Carbon Dioxide 29 Anion Gap 9 BUN 7 L Creatinine 0.55 L Estim Creat Clear Calc 122 Estimated GFR > 60 Glucose 104 POC Capillary Glucose 115 H Lactic Acid 3.2 H 2.2 H Calcium 9.6 Magnesium 1.6 Total Bilirubin 0.7 AST 34 ALT 32 Alkaline Phosphatase 103 C-Reactive Protein 3.1 H Total Protein 8.0 Albumin 4.1 Lipase 3475 H Procalcitonin 0.1 Valproic Acid Quality VTE Prophylaxis VTE prophylaxis: mechanical ordered Hospitalist MIPS Advance Care Plan I have confirmed that the patient's Advanced Care Plan is present, code status is documented, or surrogate decision maker is listed in patient medical record.: Yes Medication Reconciliation I have utilized all available resources to obtain, update and review the patients current medications (includes all prescriptions, OTC, herbals, cannabis, and nutritional supplements).: Yes
[2024-10-19] MEDS: cloBAZam (*CRX) 10 MG TABLET FEED TUBE (09:54)
[2024-10-19] MEDS: FOLIC ACID 1 MG TABLET FEED TUBE (09:55)
[2024-10-19] MEDS: SENNOSIDES 8.6 MG TABLET FEED TUBE ×2 (09:55→17:27)
[2024-10-19] MEDS: THIAMINE HCL 100 MG TABLET FEED TUBE (09:55)
[2024-10-19 10:08] LABS: Glucose Point of Care 115 mg/dl (65-105)
--- NOTE | 2024-10-19 10:36 | PC.NURSE ---
MRI safety sheet filled out with Anupama (patients sister) via telephone call, and all information verified.
[2024-10-19] MEDS: levETIRAcetam ORAL SOL 500 MG/5 ML UDC 1750 MG FEED TUBE ×2 (12:12→20:57)
[2024-10-19 13:04] LABS: Glucose Point of Care 117 mg/dl (65-105)
--- NOTE | 2024-10-19 13:11 | PM.CNGS ---
Assessment and Plan Assessment and plan (1) Gastrojejunal tube present: Code(s): Z93.1 - Gastrostomy status Status: Acute (2) Malfunction of gastrostomy tube: Code(s): K94.23 - Gastrostomy malfunction Status: Acute (3) Acute pancreatitis: Code(s): K85.90 - Acute pancreatitis without necrosis or infection, unspecified Status: Acute (4) Cholecystitis: Code(s): K81.9 - Cholecystitis, unspecified Status: Acute Assessment and Plan: CT findings consistent with acute cholecystitis and possible gallstone pancreatitis. Patient is not a good surgical candidate given comorbidities and current sepsis qualifiers. Continue to manage medically with antibiotics. Consider percutaneous cholecystostomy tube placement for worsening symptoms. History of Present Illness Consult details Consult date: 10/19/24 Narrative: This is a 64-year-old male patient with g tube and treacheostomy in place and extensive medical history including seizures who presented to the ED on 10/18 with vomiting and admitted to the hospital for findings of acute cholecystitis with concern for choledocholithiasis given concurrent finding highly elevated lipase. He was seen a day prior to admission at [facility] ER with similar symptoms and reportedly had normal appearing CT scan and was sent back to nursing facility. He qualified for severe sepsis with findings of tachycardia, tachypnea, and an elevated white blood cell count as well as a severely elevated lactic acid. General surgery consulted. Patient currently being managed with IV antibiotics pain and nausea medications. Additionally, patient had a 2 minute generalized seizure around 1:00 a.m. for which he was given IV Ativan 2 mg, IV valproic acid, as well as IV Keppra. Patient is nonverbal, but able to communicate with hand gestures. FOR[facility]LY [facility] Past Medical History Medical History Deep venous thrombosis of upper extremity Benign prostatic hyperplasia Cerebrovascular accident Residual expressive aphasia, dysphagia, and left-sided weakness. Chronic obstructive pulmonary disease Esophageal diverticulum Gastroparesis Iron deficiency anemia Vascular dementia with psychotic disturbance Seizure disorder Surgical History Surgical History History of gastrostomy tube placement History of tracheostomy History of left above knee amputation Family History Family History Other Unknown family medical history Social History Social History Social History: Surrogate medical decision maker: Adriane Hilliard, sibling. Code status: Full code. 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 Additional gender identity comments: Never Spiritual care concerns: No Meds Home Medications and Allergies Home Medications ?Medication ?Instructions ?Recorded ?Confirmed ?Type metoprolol tartrate 25 mg tablet 25 mg feeding tube BID 12/18/22 10/18/24 History polyethylene glycol 3350 17 17 g feeding tube DAILY PRN 12/18/22 10/18/24 History gram/dose oral powder Constipation bisacodyl 10 mg rectal suppository 10 mg RECTAL DAILY PRN Constipation 02/11/23 10/18/24 History sennosides 8.6 mg tablet (senna) 8.6 mg feeding tube BID 02/11/23 10/18/24 History guaifenesin 100 mg/5 mL oral liquid 300 mg feeding tube BID PRN Cough 07/08/23 10/18/24 History magnesium hydroxide 400 mg/5 mL 30 ml PO HS PRN Constipation 12/13/23 10/18/24 History oral suspension (Milk of Magnesia) atorvastatin 40 mg tablet 40 mg PO HS 02/10/24 10/18/24 History calcium carbonate 500 mg/5 mL (as 1,250 mg PO Q6H PRN Heartburn 02/10/24 10/18/24 History calcium carb 1,250 mg/5 mL) oral suspension clobazam 10 mg tablet 10 mg feeding tube DAILY 02/10/24 10/18/24 History folic acid 1 mg tablet 1 mg feeding tube DAILY 02/10/24 10/18/24 History ipratropium 0.5 mg-albuterol 3 mg 3 ml inhalation Q6H PRN Shortness 02/10/24 10/18/24 History (2.5 mg base)/3 mL nebulization Of Breath soln lacosamide 10 mg/mL oral solution 200 mg feeding tube BID 02/10/24 10/18/24 History levetiracetam 100 mg/mL oral 1,750 mg feeding tube BID 02/10/24 10/19/24 History solution magnesium citrate (Citroma oral 296 ml PO DAILY PRN Constipation 02/10/24 10/18/24 History solution) thiamine HCl (vitamin B1) 100 mg 100 mg feeding tube DAILY 02/10/24 10/18/24 History tablet valproic acid (as sodium salt) 250 500 mg feeding tube Q8H 02/10/24 10/19/24 History mg/5 mL oral solution acetaminophen 650 mg/20.3 mL oral 650 mg feeding tube Q4H PRN Pain 03/30/24 10/18/24 History suspension (Scale Score 1-3) aspirin 81 mg chewable tablet 81 mg feeding tube DAILY 03/30/24 10/18/24 History finasteride 5 mg tablet 5 mg feeding tube DAILY 10/18/24 10/18/24 History glycopyrrolate 2 mg tablet 2 mg feeding tube Q8H 10/18/24 10/18/24 History metoclopramide HCl 10 mg tablet 10 mg feeding tube TID 10/18/24 10/18/24 History ondansetron HCl 4 mg tablet 4 mg feeding tube Q6H PRN nausea 10/18/24 10/18/24 History and vomiting pantoprazole 40 mg tablet,delayed 40 mg PO Q12H 10/18/24 10/18/24 History release tramadol 50 mg tablet 25 mg feeding tube Q6H PRN pain 10/18/24 10/18/24 History Allergies Allergy/AdvReac Type Severity Reaction Status Date / Time clonazepam AdvReac Unknown drowsiness Verified 10/19/24 10:36 Vital Signs Vital Signs - 24 hr 10/18/24 14:17 10/18/24 15:30 10/18/24 16:30 Temperature 98.6 F Pulse Rate 100 103 H 112 H Respiratory Rate 20 20 22 H Blood Pressure 182/96 H 208/111 H 165/104 H Pulse Oximetry 96 97 96 Oxygen Delivery Nasal Cannula Oxygen Flow Rate 2 Fraction of Inspired Oxygen 10/18/24 17:30 10/18/24 18:48 10/18/24 21:44 Temperature Pulse Rate 110 H 109 H 97 Respiratory Rate 22 H 22 H 20 Blood Pressure 180/111 H 183/100 H 198/104 H Pulse Oximetry 97 96 100 Oxygen Delivery Oxygen Flow Rate Fraction of Inspired Oxygen 10/18/24 22:14 10/18/24 23:07 10/18/24 23:30 Temperature 98.3 F Pulse Rate 94 104 H Respiratory Rate 16 18 Blood Pressure 184/92 H Pulse Oximetry 100 98 96 Oxygen Delivery Trach Collar High Flow Therapy with Tr Oxygen Flow Rate 1 35 Fraction of Inspired Oxygen 30 10/19/24 00:00 10/19/24 00:30 10/19/24 01:10 Temperature Pulse Rate 86 104 H Respiratory Rate Blood Pressure Pulse Oximetry 97 Oxygen Delivery High Flow Therapy with Tr Oxygen Flow Rate 35 Fraction of Inspired Oxygen 30 10/19/24 02:00 10/19/24 02:40 10/19/24 03:40 Temperature 97.7 F Pulse Rate 84 88 Respiratory Rate 20 Blood Pressure 160/88 H Pulse Oximetry 96 96 Oxygen Delivery High Flow Therapy with Tr Oxygen Flow Rate 25 Fraction of Inspired Oxygen 28 10/19/24 04:00 10/19/24 06:00 10/19/24 07:33 Temperature 98.9 F Pulse Rate 90 86 81 Respiratory Rate 22 H Blood Pressure 181/85 H Pulse Oximetry 96 Oxygen Delivery Oxygen Flow Rate Fraction of Inspired Oxygen 10/19/24 08:00 10/19/24 08:00 10/19/24 09:23 Temperature Pulse Rate 91 Respiratory Rate Blood Pressure Pulse Oximetry 96 95 Oxygen Delivery High Flow Therapy with Tr High Flow Therapy with Tr Oxygen Flow Rate 25 25 Fraction of Inspired Oxygen 28 10/19/24 09:55 10/19/24 10:00 10/19/24 10:28 Temperature Pulse Rate 104 H 82 93 Respiratory Rate 18 Blood Pressure 174/91 H Pulse Oximetry 96 Oxygen Delivery Oxygen Flow Rate Fraction of Inspired Oxygen 10/19/24 12:00 Temperature Pulse Rate 92 Respiratory Rate 18 Blood Pressure 159/107 H Pulse Oximetry 93 Oxygen Delivery Oxygen Flow Rate Fraction of Inspired Oxygen Exam Narrative: Exam limited due to patient's current physical state. Nonverbal. Const: General: comfortable and no acute distress GI: GI Palp: Yes Firmness to palpation present (GI), No Tenderness to palpation present (GI) and No Guarding due to palpation present (GI) Other: G-tube in place. Somewhat rigid abdomen. Results Labs 10/19/24 05:22 10/19/24 05:22 Labs: Abnormal lab results 10/18/24 10/18/24 10/18/24 Range/Units 15:47 19:10 21:12 WBC 11.1 H (4.5-10.0) K/mm3 RBC (4.6-6.20) M/mm3 MPV 12.9 H (7.4-10.4) fl Neut % (Auto) 75.6 H (45.5-73.1) % Lymph % (Auto) 15.8 L (18.3-44.2) % Baso % (Auto) (0.2-1.2) % [place] # (Auto) (0.1-0.6) K/mm3 Absolute Neuts (auto) 8.4 H (1.3-6.7) K/mm3 ESR (0-20) mm/hr VBG pCO2 53.5 H (42.0-48.0) mmHg VBG pO2 34.9 L (35.0-45.0) mmHg BUN (9-20) mg/dL Creatinine 0.60 L (0.7-1.3) mg/dL POC Capillary Glucose (65-105) mg/dl Lactic Acid 7.8 H* (0.7-2.0) mmol/L C-Reactive Protein 1.8 H (<1.0) mg/dL Lipase 04730 H (23-300) U/L Valproic Acid 22.9 L (50-120) ug/mL 10/18/24 10/19/24 10/19/24 Range/Units 23:54 02:53 05:22 WBC (4.5-10.0) K/mm3 RBC 4.51 L (4.6-6.20) M/mm3 MPV 12.8 H (7.4-10.4) fl Neut % (Auto) (45.5-73.1) % Lymph % (Auto) (18.3-44.2) % Baso % (Auto) 0.1 L (0.2-1.2) % [place] # (Auto) 0.7 H (0.1-0.6) K/mm3 Absolute Neuts (auto) (1.3-6.7) K/mm3 ESR 31 H (0-20) mm/hr VBG pCO2 (42.0-48.0) mmHg VBG pO2 (35.0-45.0) mmHg BUN 7 L (9-20) mg/dL Creatinine 0.55 L (0.7-1.3) mg/dL POC Capillary Glucose 115 H (65-105) mg/dl Lactic Acid 3.2 H 2.2 H (0.7-2.0) mmol/L C-Reactive Protein 3.1 H (<1.0) mg/dL Lipase 3475 H (23-300) U/L Valproic Acid (50-120) ug/mL 10/19/24 10/19/24 Range/Units 09:57 13:00 WBC (4.5-10.0) K/mm3 RBC (4.6-6.20) M/mm3 MPV (7.4-10.4) fl Neut % (Auto) (45.5-73.1) % Lymph % (Auto) (18.3-44.2) % Baso % (Auto) (0.2-1.2) % [place] # (Auto) (0.1-0.6) K/mm3 Absolute Neuts (auto) (1.3-6.7) K/mm3 ESR (0-20) mm/hr VBG pCO2 (42.0-48.0) mmHg VBG pO2 (35.0-45.0) mmHg BUN (9-20) mg/dL Creatinine (0.7-1.3) mg/dL POC Capillary Glucose 115 H 117 H (65-105) mg/dl Lactic Acid (0.7-2.0) mmol/L C-Reactive Protein (<1.0) mg/dL Lipase (23-300) U/L Valproic Acid (50-120) ug/mL Diabetes panel 10/18/24 10/19/24 Range/Units 15:47 05:22 Sodium 140 140 (137-145) mmol/L Potassium 4.3 3.9 (3.4-5.0) mmol/L Chloride 103 102 (98-107) mmol/L Carbon Dioxide 30 29 (22-30) mmol/L BUN 11 7 L (9-20) mg/dL Creatinine 0.60 L 0.55 L (0.7-1.3) mg/dL Glucose 110 104 (65-110) mg/dL Calcium 9.9 9.6 (8.4-10.2) mg/dL AST 37 34 (17-59) U/L ALT 35 32 (6-50) U/L Alkaline Phosphatase 116 103 (38-126) U/L Total Protein 8.0 8.0 (6.3-8.2) g/dL Albumin 4.2 4.1 (3.5-5.1) g/dL Calcium panel 10/18/24 10/19/24 Range/Units 15:47 05:22 Calcium 9.9 9.6 (8.4-10.2) mg/dL Albumin 4.2 4.1 (3.5-5.1) g/dL Pituitary panel 10/18/24 10/19/24 Range/Units 15:47 05:22 Sodium 140 140 (137-145) mmol/L Potassium 4.3 3.9 (3.4-5.0) mmol/L Chloride 103 102 (98-107) mmol/L Carbon Dioxide 30 29 (22-30) mmol/L BUN 11 7 L (9-20) mg/dL Creatinine 0.60 L 0.55 L (0.7-1.3) mg/dL Glucose 110 104 (65-110) mg/dL Calcium 9.9 9.6 (8.4-10.2) mg/dL Adrenal panel 10/18/24 10/19/24 Range/Units 15:47 05:22 Sodium 140 140 (137-145) mmol/L Potassium 4.3 3.9 (3.4-5.0) mmol/L Chloride 103 102 (98-107) mmol/L Carbon Dioxide 30 29 (22-30) mmol/L BUN 11 7 L (9-20) mg/dL Creatinine 0.60 L 0.55 L (0.7-1.3) mg/dL Glucose 110 104 (65-110) mg/dL Calcium 9.9 9.6 (8.4-10.2) mg/dL Total Bilirubin 0.7 0.7 (0.2-1.3) mg/dL AST 37 34 (17-59) U/L ALT 35 32 (6-50) U/L Alkaline Phosphatase 116 103 (38-126) U/L Total Protein 8.0 8.0 (6.3-8.2) g/dL Albumin 4.2 4.1 (3.5-5.1) g/dL All other labs normal.
[2024-10-19 20:39] LABS: Hematocrit 43.1 % (42.0-52.0); Hemoglobin 14.1 g/dL (14.0-18.0); Mean Corpuscular HGB Conc 32.7 g/dl (32-36); Mean Corpuscular Hemoglobin 32.3 pg (26-34); Mean Corpuscular Volume 98.9 fl (80-100); Mean Platelet Volume 12.3 fl (7.4-10.4); Platelet Count Result 161 k/mm3 (150-375); Red Blood Count 4.36 M/mm3 (4.6-6.20); Red Cell Distribution Width 13.2 % (11.5-14.5); White Blood Count 10.8 K/mm3 (4.5-10.0)
[2024-10-20] VITALS (17 sets, daily range): BP systolic 126–194; BP diastolic 81–97; PULSE 82–113; RESP 16–24; TEMP 36.4–37.2; O2SAT 95–100
[2024-10-20 00:06] LABS: Glucose Point of Care 84 mg/dl (65-105)
[2024-10-20] MEDS: PIPERACILLN/TAZ 3.375GM/NS50ML 3.375 GM/50 ML BAG IVPB ×4 (00:20→17:27)
[2024-10-20] MEDS: VALPROATE SODIUM INJ 500 MG in DEXTROSE 5% IN WATER 50 ML 55 MG IVPB ×4 (00:51→21:10)
[2024-10-20] MEDS: LACTATED RINGERS 1,000 ML 125 ML IV CONT ×3 (04:00→21:25)
[2024-10-20 04:47] LABS: Basophils Percent Auto 0.3 % (0.2-1.2); Eosinophils Absolute Auto 0.2 K/mm3 (0-0.3); Eosinophils Percent Auto 1.7 % (0-4.4); Hematocrit 37.1 % (42.0-52.0); Hemoglobin 12.5 g/dL (14.0-18.0); Immature Granulocyte Absolute 0.02 K/mm3 (0.00-0.031); Immature Granulocyte Percent A 0.2 % (0-0.5); Lymphocytes Absolute Auto 2.33 K/mm3 (0.9-3.2); Lymphocytes Percent Auto 20.3 % (18.3-44.2); Mean Corpuscular HGB Conc 33.7 g/dl (32-36); Mean Corpuscular Hemoglobin 32.2 pg (26-34); Mean Corpuscular Volume 95.6 fl (80-100); Mean Platelet Volume 12.2 fl (7.4-10.4); Monocytes Absolute Auto 1.2 K/mm3 (0.1-0.6); Monocytes Percent Auto 10.7 % (2.6-8.5); Neutrophils Absolute Auto 7.7 K/mm3 (1.3-6.7); Neutrophils Percent Auto 66.8 % (45.5-73.1); Platelet Count Result 146 k/mm3 (150-375); Red Blood Count 3.88 M/mm3 (4.6-6.20); Red Cell Distribution Width 13.3 % (11.5-14.5); White Blood Count 11.5 K/mm3 (4.5-10.0)
[2024-10-20 04:58] LABS: Lactic Acid Reflex 0.7 mmol/L (0.7-2.0)
[2024-10-20 04:59] LABS: Alanine Aminotransferase 23 U/L (6-50); Albumin Level 3.4 g/dL (3.5-5.1); Alkaline Phosphatase 84 U/L (38-126); Anion Gap 7 mmol/L (4-12); Aspartate Amino Transferase 28 U/L (17-59); Bilirubin,Total 0.8 mg/dL (0.2-1.3); Blood Urea Nitrogen 6 mg/dL (9-20); Carbon Dioxide 26 mmol/L (22-30); Chloride 104 mmol/L (98-107); Estimated CRCL calculation 138 ml/min; Estimated Glomerular Filt Rate > 60; Glucose 91 mg/dL (65-110); Magnesium 1.7 mg/dL (1.6-2.3); Potassium 3.5 mmol/L (3.4-5.0); Sodium 137 mmol/L (137-145)
[2024-10-20 05:03] LABS: Valproic Acid 69.1 ug/mL (50-120)
[2024-10-20 05:12] LABS: Erythrocyte Sedimentation Rate 78 mm/hr (0-20)
[2024-10-20 05:15] LABS: Procalcitonin 0.1 ng/mL
[2024-10-20] MEDS: GLYCOPYRROLATE 1 MG TABLET 2 MG FEED TUBE ×3 (05:32→21:10)
[2024-10-20] MEDS: FOLIC ACID 1 MG TABLET FEED TUBE (09:33)
[2024-10-20] MEDS: SENNOSIDES 8.6 MG TABLET FEED TUBE ×2 (09:33→17:26)
[2024-10-20] MEDS: METOPROLOL TARTRATE 25 MG TABLET FEED TUBE ×2 (09:33→21:10)
[2024-10-20] MEDS: LACOSAMIDE (*CRX) 200 MG TABLET FEED TUBE ×2 (09:33→21:11)
[2024-10-20] MEDS: THIAMINE HCL 100 MG TABLET FEED TUBE (09:33)
[2024-10-20] MEDS: cloBAZam (*CRX) 10 MG TABLET FEED TUBE (09:34)
[2024-10-20] MEDS: levETIRAcetam ORAL SOL 500 MG/5 ML UDC 1750 MG FEED TUBE (09:43)
--- NOTE | 2024-10-20 11:21 | PM.PNGS ---
Progress Note: A&P Assessment and Plan (1) Cholecystitis: Code(s): K81.9 - Cholecystitis, unspecified Status: Acute Assessment and Plan: Continue broad spectrum antibiotics. Overall not a good surgical candidate. Would consider cholecystostomy tube if persistent severe cholecystitis found. Await MRCP results. (2) Acute pancreatitis: Code(s): K85.90 - Acute pancreatitis without necrosis or infection, unspecified Status: Acute (3) Severe sepsis: Code(s): A41.9 - Sepsis, unspecified organism; R65.20 - Severe sepsis without septic shock Status: Acute (4) Chronic hypoxemic respiratory failure: Code(s): J96.11 - Chronic respiratory failure with hypoxia Status: Chronic (5) Epilepsy: Code(s): G40.909 - Epilepsy, unspecified, not intractable, without status epilepticus Status: Acute (6) Cerebrovascular accident: Code(s): I63.9 - Cerebral infarction, unspecified Status: Chronic Subjective Subjective Date/Time Seen: 10/20/24 11:21 Interval history: No significant changes. Pain seems to be improving. No fevers. Exam GI: Inspection: non-distended GI Palp: Yes Soft to palpation, Yes Tenderness to palpation present (GI) (mild upper), No Guarding due to palpation present (GI) and No Rebound tenderness present Percussion: Yes normal to percussion Objective Data Vital Signs Vital Signs: Vital Signs - 24 hr 10/19/24 12:00 10/19/24 12:00 10/19/24 12:00 Temperature Pulse Rate 92 94 Respiratory Rate 18 Blood Pressure 159/107 H Pulse Oximetry 93 93 Oxygen Delivery High Flow Therapy with Tr Oxygen Flow Rate 25 Fraction of Inspired Oxygen 10/19/24 14:00 10/19/24 14:11 10/19/24 15:52 Temperature 98.8 F Pulse Rate 85 96 Respiratory Rate 18 Blood Pressure 164/87 H Pulse Oximetry 95 99 Oxygen Delivery High Flow Therapy with Tr Oxygen Flow Rate 25 Fraction of Inspired Oxygen 28 10/19/24 16:00 10/19/24 16:00 10/19/24 18:00 Temperature Pulse Rate 86 87 Respiratory Rate Blood Pressure Pulse Oximetry 99 Oxygen Delivery High Flow Therapy with Tr Oxygen Flow Rate 25 Fraction of Inspired Oxygen 10/19/24 19:43 10/19/24 20:00 10/19/24 20:00 Temperature 97.9 F Pulse Rate 84 89 87 Respiratory Rate 18 Blood Pressure 151/79 H Pulse Oximetry 96 95 Oxygen Delivery High Flow Therapy with Tr Oxygen Flow Rate 25 Fraction of Inspired Oxygen 10/19/24 20:15 10/19/24 20:57 10/19/24 22:00 Temperature Pulse Rate 91 90 82 Respiratory Rate Blood Pressure Pulse Oximetry 95 Oxygen Delivery High Flow Therapy with Tr Oxygen Flow Rate 25 Fraction of Inspired Oxygen 10/20/24 00:00 10/20/24 00:00 10/20/24 00:00 Temperature 98 F Pulse Rate 93 91 82 Respiratory Rate 20 18 Blood Pressure 142/81 H Pulse Oximetry 96 96 Oxygen Delivery High Flow Therapy with Tr Oxygen Flow Rate 25 Fraction of Inspired Oxygen 10/20/24 02:00 10/20/24 04:00 10/20/24 04:00 Temperature Pulse Rate 102 H 97 88 Respiratory Rate 18 Blood Pressure Pulse Oximetry 98 Oxygen Delivery High Flow Therapy with Tr Oxygen Flow Rate 25 Fraction of Inspired Oxygen 10/20/24 04:00 10/20/24 06:00 10/20/24 08:00 Temperature 98.5 F 97.6 F Pulse Rate 113 H 98 98 Respiratory Rate 18 20 Blood Pressure 126/97 H 157/83 H Pulse Oximetry 96 95 Oxygen Delivery Oxygen Flow Rate Fraction of Inspired Oxygen 10/20/24 08:00 10/20/24 08:22 10/20/24 09:33 Temperature Pulse Rate 94 106 H Respiratory Rate Blood Pressure Pulse Oximetry 98 Oxygen Delivery High Flow Therapy with Tr Oxygen Flow Rate 25 Fraction of Inspired Oxygen 27 Intake/Output Intake/Output: Intake & Output 10/17/24 10/18/24 10/19/24 10/20/24 23:59 23:59 23:59 23:59 Intake Total 1850 2645 1250 Output Total 1700 3600 650 Balance 150 -955 600 Meds/Results Medications: Active Medications Generic Name Dose Route Start Last Admin Trade Name Freq PRN Reason Stop Dose Admin Albuterol/Ipratropium 3 ml 10/19/24 00:22 Ipratropium 0.5 Mg/Albuterol Sulfate 2.5 Mg Ampul.Neb 3 Ml INHALATION Q6HRT PRN Shortness Of Breath Bisacodyl 10 mg 10/19/24 00:22 Bisacodyl 10 Mg Suppository RECTAL DAILY PRN Constipation Clobazam 10 mg 10/19/24 09:00 10/20/24 09:34 Clobazam (*Crx) 10 Mg Tablet FEED TUBE 10 mg DAILY TERRELL Administration Folic Acid 1 mg 10/19/24 09:00 10/20/24 09:33 Folic Acid 1 Mg Tablet FEED TUBE 1 mg DAILY TERRELL Administration Glycopyrrolate 2 mg 10/19/24 00:50 10/20/24 05:32 Glycopyrrolate 1 Mg Tablet FEED TUBE 2 mg Q8HR TERRELL Administration Hydromorphone HCl 0.5 mg 10/18/24 19:08 Hydromorphone Hcl Inj (*Crx) 2 Mg/Ml Vial IV PUSH Q4H PRN Pain Rated 7-10 Piperacillin/Tazobactam/Dextrose 3.375 gm in 50 mls @ 100 mls/hr 10/19/24 01:00 10/20/24 05:32 Zosyn 3.375 Gm/Ns 50 Ml IVPB 100 mls/hr Q6HR TERRELL Administration Lactated Ringer's 1,000 mls @ 125 mls/hr 10/19/24 00:05 10/20/24 04:00 Lr - Lactated Ringers Iv IV CONT 125 mls/hr .Q8H TERRELL Administration Valproate Sodium 500 mg/ 55 mls @ 55 mls/hr 10/20/24 06:00 10/20/24 06:40 Dextrose IVPB 55 mls/hr 06,14,22 TERRELL Administration Lacosamide 200 mg 10/19/24 01:10 10/20/24 09:33 Lacosamide (*Crx) 200 Mg Tablet FEED TUBE 200 mg Q12HR TERRELL Administration Levetiracetam 1,750 mg 10/19/24 09:00 10/20/24 09:43 Levetiracetam Oral Amparo 500 Mg/5 Ml Udc FEED TUBE 1,750 mg Q12HR TERRELL Administration Lorazepam 2 mg 10/19/24 10:34 Lorazepam Inj (*Crx) 2 Mg/Ml Vial IV PUSH Q4HR PRN Seizure Activity Magnesium Hydroxide 30 ml 10/19/24 00:22 Magnesium Hydroxide Susp 30 Ml Udc PO HS PRN Constipation Metoclopramide HCl 10 mg 10/19/24 09:00 Metoclopramide Hcl 10 Mg Tablet FEED TUBE TID TERRELL Metoprolol Tartrate 25 mg 10/19/24 00:25 10/20/24 09:33 Metoprolol Tartrate 25 Mg Tablet FEED TUBE 25 mg Q12HR TERRELL Administration Ondansetron HCl 4 mg 10/18/24 19:08 Ondansetron Inj 4 Mg/2 Ml Vial IV PUSH Q4H PRN Nausea Senna 8.6 mg 10/19/24 09:00 10/20/24 09:33 Sennosides 8.6 Mg Tablet FEED TUBE 8.6 mg BID TERRELL Administration Thiamine HCl 100 mg 10/19/24 09:00 10/20/24 09:33 Thiamine Hcl 100 Mg Tablet FEED TUBE 100 mg DAILY TERRELL Administration Radiology Results: ITS Impressions Abdomen/Pelvis CT 10/18/24 16:48 IMPRESSION: Findings consistent consistent with acute cholecystitis, as detailed above. Malpositioning of the balloon for the percutaneous gastrostomy, as detailed above. Abdomen CT 10/18/24 22:58 IMPRESSION: Findings consistent with (likely) gallstone pancreatitis, as detailed above. Imaging findings are now much clearer after fluid resuscitation. Redemonstration of a percutaneous gastrostomy with its balloon extending to the level of the pylorus, rather than immediately beneath the undersurface of the anterior abdominal wall for which withdrawal of 4.9 cm (with the balloon continuously inflated) is recommended for optimal radiographic placement. Labs Labs: Laboratory Results - last 24 hr 10/19/24 10/19/24 10/19/24 13:00 20:34 23:59 WBC 10.8 H RBC 4.36 L Hgb 14.1 Hct 43.1 MCV 98.9 MCH 32.3 MCHC 32.7 RDW 13.2 Plt Count 161 MPV 12.3 H Immature Gran % (Auto) Neut % (Auto) Lymph % (Auto) [place] % (Auto) Eos % (Auto) Baso % (Auto) Lymph # (Auto) [place] # (Auto) Eos # (Auto) Baso # (Auto) Abs Immat Gran (auto) Absolute Neuts (auto) Absolute Nucleated RBC Nucleated RBC % ESR Sodium Potassium Chloride Carbon Dioxide Anion Gap BUN Creatinine Estim Creat Clear Calc Estimated GFR Glucose POC Capillary Glucose 117 H 84 Lactic Acid Calcium Magnesium Total Bilirubin AST ALT Alkaline Phosphatase Total Protein Albumin Procalcitonin Valproic Acid 10/20/24 04:40 WBC 11.5 H RBC 3.88 L Hgb 12.5 L Hct 37.1 L MCV 95.6 MCH 32.2 MCHC 33.7 RDW 13.3 Plt Count 146 L MPV 12.2 H Immature Gran % (Auto) 0.2 Neut % (Auto) 66.8 Lymph % (Auto) 20.3 [place] % (Auto) 10.7 H Eos % (Auto) 1.7 Baso % (Auto) 0.3 Lymph # (Auto) 2.33 [place] # (Auto) 1.2 H Eos # (Auto) 0.2 Baso # (Auto) 0.0 Abs Immat Gran (auto) 0.02 Absolute Neuts (auto) 7.7 H Absolute Nucleated RBC 0.000 Nucleated RBC % 0.0 ESR 78 H Sodium 137 Potassium 3.5 Chloride 104 Carbon Dioxide 26 Anion Gap 7 BUN 6 L Creatinine 0.48 L Estim Creat Clear Calc 138 Estimated GFR > 60 Glucose 91 POC Capillary Glucose Lactic Acid 0.7 Calcium 9.0 Magnesium 1.7 Total Bilirubin 0.8 AST 28 ALT 23 Alkaline Phosphatase 84 Total Protein 7.0 Albumin 3.4 L Procalcitonin 0.1 Valproic Acid 69.1
--- NOTE | 2024-10-20 14:03 | PCDIET ---
Tube feeding note: MD fink for tube feeding to restart. Jevity 1.5 @ goal rate 50 ml/h with 250 ml flushes q 4 h. Start at 30 ml, advance 10 ml q 4 h as tolerated. 50 ml/h goal rate provides 1750 kcal, 60 g protein, 1840 ml free water with flushes included.
--- NOTE | 2024-10-20 14:33 | WPDGIPROGNO ---
Progress Note: A&P Assessment and Plan (1) Acute pancreatitis: Code(s): K85.90 - Acute pancreatitis without necrosis or infection, unspecified Status: Acute Assessment and Plan: patient was discussed with the surgical team, and he is not deemed a candidate for laparoscopic cholecystectomy therefore, arrangement will be made to place a cholecystostomy tube early next week.? If the MRCP is not performed, once the? cholecystostomy tube is place, a cholangiogram can be obtained through that route to determine the presence of? ?Common bile duct gallstones.? Fluids will be decreased to minimal and nutrition will be started via PEG tube until the cholecystostomy tube placement is coordinated. Subjective Date/time seen: 10/20/24 14:33 Interval history: The patient denies abdominal pain and feels better than at admission. His hematocrit now is 37, much lower than at admission ( 45%) which indicates an adequate hemodilution with lactated Ringer's. Exam GI: Inspection: non-distended GI Palp: Yes Soft to palpation, Yes Tenderness to palpation present (GI) (mild upper), No Guarding due to palpation present (GI) and No Rebound tenderness present Percussion: Yes normal to percussion Objective Data Vital Signs Vital Signs: Vital Signs - 24 hr 10/19/24 15:52 10/19/24 16:00 10/19/24 16:00 Temperature 98.8 F Pulse Rate 96 86 Respiratory Rate 18 Blood Pressure 164/87 H Pulse Oximetry 99 99 Oxygen Delivery High Flow Therapy with Tr Oxygen Flow Rate 25 Fraction of Inspired Oxygen 27 10/19/24 18:00 10/19/24 19:43 10/19/24 20:00 Temperature 97.9 F Pulse Rate 87 84 89 Respiratory Rate 18 Blood Pressure 151/79 H Pulse Oximetry 96 95 Oxygen Delivery High Flow Therapy with Tr Oxygen Flow Rate 25 Fraction of Inspired Oxygen 28 10/19/24 20:00 10/19/24 20:15 10/19/24 20:57 Temperature Pulse Rate 87 91 90 Respiratory Rate Blood Pressure Pulse Oximetry 95 Oxygen Delivery High Flow Therapy with Tr Oxygen Flow Rate 25 Fraction of Inspired Oxygen 28 10/19/24 22:00 10/20/24 00:00 10/20/24 00:00 Temperature 98 F Pulse Rate 82 93 91 Respiratory Rate 20 18 Blood Pressure 142/81 H Pulse Oximetry 96 96 Oxygen Delivery High Flow Therapy with Tr Oxygen Flow Rate 25 Fraction of Inspired Oxygen 28 10/20/24 00:00 10/20/24 02:00 10/20/24 04:00 Temperature Pulse Rate 82 102 H 97 Respiratory Rate 18 Blood Pressure Pulse Oximetry 98 Oxygen Delivery High Flow Therapy with Tr Oxygen Flow Rate 25 Fraction of Inspired Oxygen 28 10/20/24 04:00 10/20/24 04:00 10/20/24 06:00 Temperature 98.5 F Pulse Rate 88 113 H 98 Respiratory Rate 18 Blood Pressure 126/97 H Pulse Oximetry 96 Oxygen Delivery Oxygen Flow Rate Fraction of Inspired Oxygen 10/20/24 08:00 10/20/24 08:00 10/20/24 08:22 Temperature 97.6 F Pulse Rate 98 94 Respiratory Rate 20 Blood Pressure 157/83 H Pulse Oximetry 95 98 Oxygen Delivery High Flow Therapy with Tr Oxygen Flow Rate 25 Fraction of Inspired Oxygen 27 10/20/24 09:33 10/20/24 10:00 10/20/24 12:00 Temperature 99.0 F Pulse Rate 106 H 108 H 94 Respiratory Rate 24 H Blood Pressure 194/84 H Pulse Oximetry 97 Oxygen Delivery Oxygen Flow Rate Fraction of Inspired Oxygen 10/20/24 12:00 10/20/24 12:00 10/20/24 14:00 Temperature Pulse Rate 94 96 Respiratory Rate Blood Pressure Pulse Oximetry 98 Oxygen Delivery High Flow Therapy with Tr Oxygen Flow Rate 25 Fraction of Inspired Oxygen 28 Intake/Output Intake/Output: Intake & Output 10/17/24 10/18/24 10/19/24 10/20/24 23:59 23:59 23:59 23:59 Intake Total 1850 2645 1300 Output Total 1700 3600 650 Balance 150 -955 650 Meds/Results Medications: Active Medications Generic Name Dose Route Start Last Admin Trade Name Freq PRN Reason Stop Dose Admin Albuterol/Ipratropium 3 ml 10/19/24 00:22 Ipratropium 0.5 Mg/Albuterol Sulfate 2.5 Mg Ampul.Neb 3 Ml INHALATION Q6HRT PRN Shortness Of Breath Bisacodyl 10 mg 10/19/24 00:22 Bisacodyl 10 Mg Suppository RECTAL DAILY PRN Constipation Clobazam 10 mg 10/19/24 09:00 10/20/24 09:34 Clobazam (*Crx) 10 Mg Tablet FEED TUBE 10 mg DAILY TERRELL Administration Folic Acid 1 mg 10/19/24 09:00 10/20/24 09:33 Folic Acid 1 Mg Tablet FEED TUBE 1 mg DAILY TERRELL Administration Glycopyrrolate 2 mg 10/19/24 00:50 10/20/24 05:32 Glycopyrrolate 1 Mg Tablet FEED TUBE 2 mg Q8HR TERRELL Administration Hydromorphone HCl 0.5 mg 10/18/24 19:08 Hydromorphone Hcl Inj (*Crx) 2 Mg/Ml Vial IV PUSH Q4H PRN Pain Rated 7-10 Piperacillin/Tazobactam/Dextrose 3.375 gm in 50 mls @ 100 mls/hr 10/19/24 01:00 10/20/24 12:30 Zosyn 3.375 Gm/Ns 50 Ml IVPB 100 mls/hr Q6HR TERRELL Administration Lactated Ringer's 1,000 mls @ 125 mls/hr 10/19/24 00:05 10/20/24 04:00 Lr - Lactated Ringers Iv IV CONT 125 mls/hr .Q8H TERRELL Administration Valproate Sodium 500 mg/ 55 mls @ 55 mls/hr 10/20/24 06:00 10/20/24 06:40 Dextrose IVPB 55 mls/hr 06,14,22 TERRELL Administration Lacosamide 200 mg 10/19/24 01:10 10/20/24 09:33 Lacosamide (*Crx) 200 Mg Tablet FEED TUBE 200 mg Q12HR TERRELL Administration Levetiracetam 1,750 mg 10/19/24 09:00 10/20/24 09:43 Levetiracetam Oral Amparo 500 Mg/5 Ml Udc FEED TUBE 1,750 mg Q12HR TERRELL Administration Lorazepam 2 mg 10/19/24 10:34 Lorazepam Inj (*Crx) 2 Mg/Ml Vial IV PUSH Q4HR PRN Seizure Activity Magnesium Hydroxide 30 ml 10/19/24 00:22 Magnesium Hydroxide Susp 30 Ml Udc PO HS PRN Constipation Metoclopramide HCl 10 mg 10/19/24 09:00 Metoclopramide Hcl 10 Mg Tablet FEED TUBE TID TERRELL Metoprolol Tartrate 25 mg 10/19/24 00:25 10/20/24 09:33 Metoprolol Tartrate 25 Mg Tablet FEED TUBE 25 mg Q12HR TERRELL Administration Ondansetron HCl 4 mg 10/18/24 19:08 Ondansetron Inj 4 Mg/2 Ml Vial IV PUSH Q4H PRN Nausea Senna 8.6 mg 10/19/24 09:00 10/20/24 09:33 Sennosides 8.6 Mg Tablet FEED TUBE 8.6 mg BID TERRELL Administration Thiamine HCl 100 mg 10/19/24 09:00 10/20/24 09:33 Thiamine Hcl 100 Mg Tablet FEED TUBE 100 mg DAILY TERRELL Administration Radiology Results: ITS Impressions Abdomen/Pelvis CT 10/18/24 16:48 IMPRESSION: Findings consistent consistent with acute cholecystitis, as detailed above. Malpositioning of the balloon for the percutaneous gastrostomy, as detailed above. Abdomen CT 10/18/24 22:58 IMPRESSION: Findings consistent with (likely) gallstone pancreatitis, as detailed above. Imaging findings are now much clearer after fluid resuscitation. Redemonstration of a percutaneous gastrostomy with its balloon extending to the level of the pylorus, rather than immediately beneath the undersurface of the anterior abdominal wall for which withdrawal of 4.9 cm (with the balloon continuously inflated) is recommended for optimal radiographic placement. Labs Labs: Laboratory Results - last 24 hr 10/19/24 10/19/24 10/20/24 20:34 23:59 04:40 WBC 10.8 H 11.5 H RBC 4.36 L 3.88 L Hgb 14.1 12.5 L Hct 43.1 37.1 L MCV 98.9 95.6 MCH 32.3 32.2 MCHC 32.7 33.7 RDW 13.2 13.3 Plt Count 161 146 L MPV 12.3 H 12.2 H Immature Gran % (Auto) 0.2 Neut % (Auto) 66.8 Lymph % (Auto) 20.3 [place] % (Auto) 10.7 H Eos % (Auto) 1.7 Baso % (Auto) 0.3 Lymph # (Auto) 2.33 [place] # (Auto) 1.2 H Eos # (Auto) 0.2 Baso # (Auto) 0.0 Abs Immat Gran (auto) 0.02 Absolute Neuts (auto) 7.7 H Absolute Nucleated RBC 0.000 Nucleated RBC % 0.0 ESR 78 H Sodium 137 Potassium 3.5 Chloride 104 Carbon Dioxide 26 Anion Gap 7 BUN 6 L Creatinine 0.48 L Estim Creat Clear Calc 138 Estimated GFR > 60 Glucose 91 POC Capillary Glucose 84 Lactic Acid 0.7 Calcium 9.0 Magnesium 1.7 Total Bilirubin 0.8 AST 28 ALT 23 Alkaline Phosphatase 84 Total Protein 7.0 Albumin 3.4 L Procalcitonin 0.1 Valproic Acid 69.1
--- NOTE | 2024-10-20 15:33 | P.CONNEU_ITS ---
Assessment and Plan Assessment and plan (1) Intractable seizure disorder: Code(s): G40.919 - Epilepsy, unspecified, intractable, without status epilepticus Status: Acute (2) History of multiple strokes: Code(s): Z86.73 - Personal history of transient ischemic attack (TIA), and cerebral infarction without residual deficits Status: Chronic Assessment and Plan: Patient has residual left homonymous hemianopsia and left Facial weakness and left arm weakness greater than right arm. His CT scan of brain performed on 03/29/2024 shows right occipital infarct significant atrophy prominent ventricles. (3) Atrial fibrillation with rapid ventricular response: Code(s): I48.91 - Unspecified atrial fibrillation Status: Acute (4) Tracheostomy in place: Code(s): Z93.0 - Tracheostomy status Status: Acute (5) 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 (6) Acute pancreatitis: Code(s): K85.90 - Acute pancreatitis without necrosis or infection, unspecified Status: Acute (7) Cholecystitis: Code(s): K81.9 - Cholecystitis, unspecified Status: Acute Plan It appears that he has gallstones and that could lead to pancreatitis. It should be noted however that day Depakote can also cause pancreatitis sometimes even after being on this for long time. I spoke to the hospitalist team about this and suggest to gradually taper of Depakote and increase the dose of the Keppra to 2000 mg twice a day and also lacosamide 250 mg twice a day the maximum dose for lacosamide will be 600 mg a day. We can continue the clobazam is a damn as before at 10 mg a day. Despite the maximum doses of Keppra lacosamide the patient continues to have seizures when he comes of Depakote I would suggest Dilantin since it can be given intravenously as well as to the G-tube since we have limited option given his condition of intractability of the seizures that could be reasonable option I explained this to the patient's sister and she voices understanding of these. Consult date: 10/20/24 HPI: Bi Tabor is a 64 year old male with history of seizure disorder and multiple strokes and tracheostomy [facility]. He was found to have evidence for cholecystitis and acute pancreatitis which is being managed by hospitalist and new dental surgery. 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 On 10/19/2024 he had 2 seizures. His sister was present the time of the evaluation she has a power of account manager employee benefits and has a lot to say about the whole history. She feels that sometimes the [facility] staff at the [facility] do not give her the medication which is why he can have seizures. Apparently started having seizures long time ago approximately 34 years or so following head trauma. He has required multiple medications to control his seizures including Keppra and lacosamide and Depakote and clobazam. Higher dose of cope was exam lead to respiratory secretions long ago he was on Dilantin. It used to work but she had noted that he has several effect from medication over the years. Later on he was changed over to current medications. He has been followed up at to [facility]. Most of the history obtained from his sister. Review of Systems 2 Review of Systems: Difficult to understand the patient however patient's sister give a fair account of his history. [facility] Past Medical History Medical History Deep venous thrombosis of upper extremity Benign prostatic hyperplasia Cerebrovascular accident Residual expressive aphasia, dysphagia, and left-sided weakness. Chronic obstructive pulmonary disease Esophageal diverticulum Gastroparesis Iron deficiency anemia Vascular dementia with psychotic disturbance Seizure disorder Surgical History Surgical History History of gastrostomy tube placement History of tracheostomy History of left above knee amputation Family History Family History Other Unknown family medical history Social History Social History Social History: Surrogate medical decision maker: Adriane Hilliard, sibling. Code status: Full code. 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 Additional gender identity comments: Never Spiritual care concerns: No Meds Home Medications and Allergies Home Medications ?Medication ?Instructions ?Recorded ?Confirmed ?Type metoprolol tartrate 25 mg tablet 25 mg feeding tube BID 12/18/22 10/18/24 History polyethylene glycol 3350 17 17 g feeding tube DAILY PRN 12/18/22 10/18/24 History gram/dose oral powder Constipation bisacodyl 10 mg rectal suppository 10 mg RECTAL DAILY PRN Constipation 02/11/23 10/18/24 History sennosides 8.6 mg tablet (senna) 8.6 mg feeding tube BID 02/11/23 10/18/24 History guaifenesin 100 mg/5 mL oral liquid 300 mg feeding tube BID PRN Cough 07/08/23 10/18/24 History magnesium hydroxide 400 mg/5 mL 30 ml PO HS PRN Constipation 12/13/23 10/18/24 History oral suspension (Milk of Magnesia) atorvastatin 40 mg tablet 40 mg PO HS 02/10/24 10/18/24 History calcium carbonate 500 mg/5 mL (as 1,250 mg PO Q6H PRN Heartburn 02/10/24 10/18/24 History calcium carb 1,250 mg/5 mL) oral suspension clobazam 10 mg tablet 10 mg feeding tube DAILY 02/10/24 10/18/24 History folic acid 1 mg tablet 1 mg feeding tube DAILY 02/10/24 10/18/24 History ipratropium 0.5 mg-albuterol 3 mg 3 ml inhalation Q6H PRN Shortness 02/10/24 10/18/24 History (2.5 mg base)/3 mL nebulization Of Breath soln lacosamide 10 mg/mL oral solution 200 mg feeding tube BID 02/10/24 10/18/24 History levetiracetam 100 mg/mL oral 1,750 mg feeding tube BID 02/10/24 10/19/24 History solution magnesium citrate (Citroma oral 296 ml PO DAILY PRN Constipation 02/10/24 10/18/24 History solution) thiamine HCl (vitamin B1) 100 mg 100 mg feeding tube DAILY 02/10/24 10/18/24 History tablet valproic acid (as sodium salt) 250 500 mg feeding tube Q8H 02/10/24 10/19/24 History mg/5 mL oral solution acetaminophen 650 mg/20.3 mL oral 650 mg feeding tube Q4H PRN Pain 03/30/24 10/18/24 History suspension (Scale Score 1-3) aspirin 81 mg chewable tablet 81 mg feeding tube DAILY 03/30/24 10/18/24 History finasteride 5 mg tablet 5 mg feeding tube DAILY 10/18/24 10/18/24 History glycopyrrolate 2 mg tablet 2 mg feeding tube Q8H 10/18/24 10/18/24 History metoclopramide HCl 10 mg tablet 10 mg feeding tube TID 10/18/24 10/18/24 History ondansetron HCl 4 mg tablet 4 mg feeding tube Q6H PRN nausea 10/18/24 10/18/24 History and vomiting pantoprazole 40 mg tablet,delayed 40 mg PO Q12H 10/18/24 10/18/24 History release tramadol 50 mg tablet 25 mg feeding tube Q6H PRN pain 10/18/24 10/18/24 History Allergies Allergy/AdvReac Type Severity Reaction Status Date / Time clonazepam AdvReac Unknown drowsiness Verified 10/19/24 10:36 Vital Signs Vital Signs - 24 hr 10/19/24 15:52 10/19/24 16:00 10/19/24 16:00 Temperature 98.8 F Pulse Rate 96 86 Respiratory Rate 18 Blood Pressure 164/87 H Pulse Oximetry 99 99 Oxygen Delivery High Flow Therapy with Tr Oxygen Flow Rate 25 Fraction of Inspired Oxygen 27 10/19/24 18:00 10/19/24 19:43 10/19/24 20:00 Temperature 97.9 F Pulse Rate 87 84 89 Respiratory Rate 18 Blood Pressure 151/79 H Pulse Oximetry 96 95 Oxygen Delivery High Flow Therapy with Tr Oxygen Flow Rate 25 Fraction of Inspired Oxygen 28 10/19/24 20:00 10/19/24 20:15 10/19/24 20:57 Temperature Pulse Rate 87 91 90 Respiratory Rate Blood Pressure Pulse Oximetry 95 Oxygen Delivery High Flow Therapy with Tr Oxygen Flow Rate 25 Fraction of Inspired Oxygen 28 10/19/24 22:00 10/20/24 00:00 10/20/24 00:00 Temperature 98 F Pulse Rate 82 93 91 Respiratory Rate 20 18 Blood Pressure 142/81 H Pulse Oximetry 96 96 Oxygen Delivery High Flow Therapy with Tr Oxygen Flow Rate 25 Fraction of Inspired Oxygen 28 10/20/24 00:00 10/20/24 02:00 10/20/24 04:00 Temperature Pulse Rate 82 102 H 97 Respiratory Rate 18 Blood Pressure Pulse Oximetry 98 Oxygen Delivery High Flow Therapy with Tr Oxygen Flow Rate 25 Fraction of Inspired Oxygen 28 10/20/24 04:00 10/20/24 04:00 10/20/24 06:00 Temperature 98.5 F Pulse Rate 88 113 H 98 Respiratory Rate 18 Blood Pressure 126/97 H Pulse Oximetry 96 Oxygen Delivery Oxygen Flow Rate Fraction of Inspired Oxygen 10/20/24 08:00 10/20/24 08:00 10/20/24 08:22 Temperature 97.6 F Pulse Rate 98 94 Respiratory Rate 20 Blood Pressure 157/83 H Pulse Oximetry 95 98 Oxygen Delivery High Flow Therapy with Tr Oxygen Flow Rate 25 Fraction of Inspired Oxygen 27 10/20/24 09:33 10/20/24 10:00 10/20/24 12:00 Temperature 99.0 F Pulse Rate 106 H 108 H 94 Respiratory Rate 24 H Blood Pressure 194/84 H Pulse Oximetry 97 Oxygen Delivery Oxygen Flow Rate Fraction of Inspired Oxygen 10/20/24 12:00 10/20/24 12:00 10/20/24 14:00 Temperature Pulse Rate 94 96 Respiratory Rate Blood Pressure Pulse Oximetry 98 Oxygen Delivery High Flow Therapy with Tr Oxygen Flow Rate 25 Fraction of Inspired Oxygen 28 Exam 2 Narrative: Patient is awake however speech is difficult to understand because of tracheostomy in place. He appears sweaty. However on several occasions while I was conversing with his sister he tried to say something which was once again difficult to understand. Examination head and neck shows no evidence of recent injury. Cranial nerves appears to have left homonymous hemianopsia and flattening of the left nasal labial fold. he appears to have weakness of the left upper and lower limb more than the right side. Above-knee amputation of the left lower limb was noted. Results Labs 10/20/24 04:40 10/20/24 04:40 Labs: Short CBC 10/19/24 10/20/24 Range/Units 20:34 04:40 WBC 10.8 H 11.5 H (4.5-10.0) K/mm3 Hgb 14.1 12.5 L (14.0-18.0) g/dL Hct 43.1 37.1 L (42.0-52.0) % Plt Count 161 146 L (150-375) k/mm3 BMP 10/20/24 04:40 Sodium 137 Potassium 3.5 Chloride 104 Carbon Dioxide 26 BUN 6 L Creatinine 0.48 L Glucose 91 Calcium 9.0 Liver Function 10/20/24 Range/Units 04:40 Total Bilirubin 0.8 (0.2-1.3) mg/dL AST 28 (17-59) U/L ALT 23 (6-50) U/L Alkaline Phosphatase 84 (38-126) U/L Albumin 3.4 L (3.5-5.1) g/dL
--- NOTE | 2024-10-20 16:22 | P.PNIM_ITS ---
Progress Note: A&P Assessment and Plan (1) Cholecystitis: Code(s): K81.9 - Cholecystitis, unspecified Status: Acute Assessment and Plan: -Nausea, vomiting, abdominal distension -CT findings of markedly distended gallbladder with layering stones and surrounding free fluid -Lipase highly elevated raising concern for choledocholithiasis with acute pancreatitis -IV Zosyn started in ER -NPO status (except vital medications) -PRN pain and nausea medication -GI and General Surgery consulted by ER provider -MRCP ordered for tomorrow -Hold Eliquis SCDs for VTE prophylaxis -Morning labs ordered -IV fluids given for elevated lipase and highly elevated lactic acid -Ordered STAT procalcitonin, ESR, CRP with daily recheck x3 (2) Severe sepsis: Code(s): A41.9 - Sepsis, unspecified organism; R65.20 - Severe sepsis without septic shock Status: Acute Assessment and Plan: Due to cholecystitis, see above (3) Pancreatitis: Code(s): K85.90 - Acute pancreatitis without necrosis or infection, unspecified Status: Acute Assessment and Plan: See above, concern for choledocholithiasis (4) Malfunction of gastrostomy tube: Code(s): K94.23 - Gastrostomy malfunction Status: Acute Assessment and Plan: -CT abdomen pelvis showed G-tube malpositioned too deep within the stomach -This was pulled back by ER provider -Current NPO status (except vital medications) due to acute cholecystitis and pancreatitis (5) History of multiple strokes: Code(s): Z86.73 - Personal history of transient ischemic attack (TIA), and cerebral infarction without residual deficits Status: Chronic Assessment and Plan: -Non-verbal with trach and G-tube chronically due to prior CVAs with significant residual deficits (6) Epilepsy: Code(s): G40.909 - Epilepsy, unspecified, not intractable, without status epilepticus Status: Acute Assessment and Plan: -History of epilepsy, on multiple medications which will be continued Dose adjustment will be done as per neurologist request. Will taper Depakote from t.i.d. to b.i.d. to once a day and will be totally discontinued from Tuesday. Vimpat will be increased from 200 mg p.o. b.i.d. to 250 mg p.o. b.i.d.. And Keppra will be increased from 17 50 mg p.o. b.i.d. to 2 g p.o. b.i.d. (7) Acute lactic acidosis: Code(s): E87.21 - Acute metabolic acidosis Status: Acute Assessment and Plan: -Likely due to severe sepsis related to acute cholecystitis -Improvement on recheck after additional IV fluids -May rise again by morning after seizure -Patient profoundly dehydrated upon arrival to ER. Subjective Date/time seen: 10/20/24 16:22 Interval history: Possible place of cholecystomy tube early next week. MRCP pending. Discussed with the GI and Will start the tube feeding. Discussed with Neurology who report Depakote can cause pancreatitis even the patient is taking for long period of time. Dose adjustment will be done as per neurologist request. Will taper Depakote from t.i.d. to b.i.d. to once a day and will be totally discontinued from Tuesday. Vimpat will be increased from 200 mg p.o. b.i.d. to 250 mg p.o. b.i.d.. And Keppra will be increased from 17 50 mg p.o. b.i.d. to 2 g p.o. b.i.d. Review of Systems Review of Systems: ROS unobtainable: Yes unobtainable due to mental status Exam Narrative: GENERAL: Chronically ill-appearing, well-nourished, and in no acute distress. HEAD: Normocephalic, atraumatic. EYES: PERRL and EOMI. NECK: Supple. Tracheostomy with no significant plugging of the tube. CHEST: Clear to auscultation. No respiratory distress. HEART: Regular rate and rhythm. Normal peripheral pulses. ABDOMEN: Mildly distended abdomen without significant tenderness. Peg site appears normal. Normal bowel sounds. EXTREMITIES: Right lower extremity in cushion boot. Left AKA. NEURO: Awake, alert, and at neurologic baseline. Objective Data Vital Signs Vital Signs: Vital Signs - 24 hr 10/19/24 18:00 10/19/24 19:43 10/19/24 20:00 Temperature 97.9 F Pulse Rate 87 84 89 Respiratory Rate 18 Blood Pressure 151/79 H Pulse Oximetry 96 95 Oxygen Delivery High Flow Therapy with Tr Oxygen Flow Rate 25 Fraction of Inspired Oxygen 28 10/19/24 20:00 10/19/24 20:15 10/19/24 20:57 Temperature Pulse Rate 87 91 90 Respiratory Rate Blood Pressure Pulse Oximetry 95 Oxygen Delivery High Flow Therapy with Tr Oxygen Flow Rate 25 Fraction of Inspired Oxygen 28 10/19/24 22:00 10/20/24 00:00 10/20/24 00:00 Temperature 98 F Pulse Rate 82 93 91 Respiratory Rate 20 18 Blood Pressure 142/81 H Pulse Oximetry 96 96 Oxygen Delivery High Flow Therapy with Tr Oxygen Flow Rate 25 Fraction of Inspired Oxygen 28 10/20/24 00:00 10/20/24 02:00 10/20/24 04:00 Temperature Pulse Rate 82 102 H 97 Respiratory Rate 18 Blood Pressure Pulse Oximetry 98 Oxygen Delivery High Flow Therapy with Tr Oxygen Flow Rate 25 Fraction of Inspired Oxygen 28 10/20/24 04:00 10/20/24 04:00 10/20/24 06:00 Temperature 98.5 F Pulse Rate 88 113 H 98 Respiratory Rate 18 Blood Pressure 126/97 H Pulse Oximetry 96 Oxygen Delivery Oxygen Flow Rate Fraction of Inspired Oxygen 10/20/24 08:00 10/20/24 08:00 10/20/24 08:22 Temperature 97.6 F Pulse Rate 98 94 Respiratory Rate 20 Blood Pressure 157/83 H Pulse Oximetry 95 98 Oxygen Delivery High Flow Therapy with Tr Oxygen Flow Rate 25 Fraction of Inspired Oxygen 27 10/20/24 09:33 10/20/24 10:00 10/20/24 12:00 Temperature 99.0 F Pulse Rate 106 H 108 H 94 Respiratory Rate 24 H Blood Pressure 194/84 H Pulse Oximetry 97 Oxygen Delivery Oxygen Flow Rate Fraction of Inspired Oxygen 10/20/24 12:00 10/20/24 12:00 10/20/24 14:00 Temperature Pulse Rate 94 96 Respiratory Rate Blood Pressure Pulse Oximetry 98 Oxygen Delivery High Flow Therapy with Tr Oxygen Flow Rate 25 Fraction of Inspired Oxygen 28 10/20/24 16:00 Temperature Pulse Rate Respiratory Rate Blood Pressure Pulse Oximetry 98 Oxygen Delivery High Flow Therapy with Tr Oxygen Flow Rate 25 Fraction of Inspired Oxygen 28 Intake/Output Intake/Output: Intake & Output 10/17/24 10/18/24 10/19/24 10/20/24 23:59 23:59 23:59 23:59 Intake Total 1850 2645 2405 Output Total 1700 3600 650 Balance 150 -955 1755 Meds/Results Medications: Active Medications Generic Name Dose Route Start Last Admin Trade Name Freq PRN Reason Stop Dose Admin Albuterol/Ipratropium 3 ml 10/19/24 00:22 Ipratropium 0.5 Mg/Albuterol Sulfate 2.5 Mg Ampul.Neb 3 Ml INHALATION Q6HRT PRN Shortness Of Breath Bisacodyl 10 mg 10/19/24 00:22 Bisacodyl 10 Mg Suppository RECTAL DAILY PRN Constipation Clobazam 10 mg 10/19/24 09:00 10/20/24 09:34 Clobazam (*Crx) 10 Mg Tablet FEED TUBE 10 mg DAILY TERRELL Administration Folic Acid 1 mg 10/19/24 09:00 10/20/24 09:33 Folic Acid 1 Mg Tablet FEED TUBE 1 mg DAILY TERRELL Administration Glycopyrrolate 2 mg 10/19/24 00:50 10/20/24 14:52 Glycopyrrolate 1 Mg Tablet FEED TUBE 2 mg Q8HR TERRELL Administration Hydromorphone HCl 0.5 mg 10/18/24 19:08 Hydromorphone Hcl Inj (*Crx) 2 Mg/Ml Vial IV PUSH Q4H PRN Pain Rated 7-10 Piperacillin/Tazobactam/Dextrose 3.375 gm in 50 mls @ 100 mls/hr 10/19/24 01:00 10/20/24 13:00 Zosyn 3.375 Gm/Ns 50 Ml IVPB Infused Q6HR TERRELL Infusion Lactated Ringer's 1,000 mls @ 125 mls/hr 10/19/24 00:05 10/20/24 14:53 Lr - Lactated Ringers Iv IV CONT 125 mls/hr .Q8H TERRELL Administration Valproate Sodium 500 mg/ 55 mls @ 55 mls/hr 10/20/24 06:00 10/20/24 14:52 Dextrose IVPB 55 mls/hr 06,22 TERRELL Administration Lacosamide 200 mg 10/19/24 01:10 10/20/24 09:33 Lacosamide (*Crx) 200 Mg Tablet FEED TUBE 200 mg Q12HR TERRELL Administration Levetiracetam 1,750 mg 10/19/24 09:00 10/20/24 09:43 Levetiracetam Oral Amparo 500 Mg/5 Ml Udc FEED TUBE 1,750 mg Q12HR TERRELL Administration Lorazepam 2 mg 10/19/24 10:34 Lorazepam Inj (*Crx) 2 Mg/Ml Vial IV PUSH Q4HR PRN Seizure Activity Magnesium Hydroxide 30 ml 10/19/24 00:22 Magnesium Hydroxide Susp 30 Ml Udc PO HS PRN Constipation Metoclopramide HCl 10 mg 10/19/24 09:00 Metoclopramide Hcl 10 Mg Tablet FEED TUBE TID TERRELL Metoprolol Tartrate 25 mg 10/19/24 00:25 10/20/24 09:33 Metoprolol Tartrate 25 Mg Tablet FEED TUBE 25 mg Q12HR TERRELL Administration Ondansetron HCl 4 mg 10/18/24 19:08 Ondansetron Inj 4 Mg/2 Ml Vial IV PUSH Q4H PRN Nausea Senna 8.6 mg 10/19/24 09:00 10/20/24 09:33 Sennosides 8.6 Mg Tablet FEED TUBE 8.6 mg BID TERRELL Administration Thiamine HCl 100 mg 10/19/24 09:00 10/20/24 09:33 Thiamine Hcl 100 Mg Tablet FEED TUBE 100 mg DAILY TERRELL Administration Radiology Results: ITS Impressions Abdomen/Pelvis CT 10/18/24 16:48 IMPRESSION: Findings consistent consistent with acute cholecystitis, as detailed above. Malpositioning of the balloon for the percutaneous gastrostomy, as detailed above. Abdomen CT 10/18/24 22:58 IMPRESSION: Findings consistent with (likely) gallstone pancreatitis, as detailed above. Imaging findings are now much clearer after fluid resuscitation. Redemonstration of a percutaneous gastrostomy with its balloon extending to the level of the pylorus, rather than immediately beneath the undersurface of the anterior abdominal wall for which withdrawal of 4.9 cm (with the balloon continuously inflated) is recommended for optimal radiographic placement. Labs Labs: Laboratory Results - last 24 hr 10/19/24 10/19/24 10/20/24 20:34 23:59 04:40 WBC 10.8 H 11.5 H RBC 4.36 L 3.88 L Hgb 14.1 12.5 L Hct 43.1 37.1 L MCV 98.9 95.6 MCH 32.3 32.2 MCHC 32.7 33.7 RDW 13.2 13.3 Plt Count 161 146 L MPV 12.3 H 12.2 H Immature Gran % (Auto) 0.2 Neut % (Auto) 66.8 Lymph % (Auto) 20.3 [place] % (Auto) 10.7 H Eos % (Auto) 1.7 Baso % (Auto) 0.3 Lymph # (Auto) 2.33 [place] # (Auto) 1.2 H Eos # (Auto) 0.2 Baso # (Auto) 0.0 Abs Immat Gran (auto) 0.02 Absolute Neuts (auto) 7.7 H Absolute Nucleated RBC 0.000 Nucleated RBC % 0.0 ESR 78 H Sodium 137 Potassium 3.5 Chloride 104 Carbon Dioxide 26 Anion Gap 7 BUN 6 L Creatinine 0.48 L Estim Creat Clear Calc 138 Estimated GFR > 60 Glucose 91 POC Capillary Glucose 84 Lactic Acid 0.7 Calcium 9.0 Magnesium 1.7 Total Bilirubin 0.8 AST 28 ALT 23 Alkaline Phosphatase 84 Total Protein 7.0 Albumin 3.4 L Procalcitonin 0.1 Valproic Acid 69.1 Quality VTE Prophylaxis VTE prophylaxis: mechanical ordered Hospitalist MIPS Advance Care Plan I have confirmed that the patient's Advanced Care Plan is present, code status is documented, or surrogate decision maker is listed in patient medical record.: Yes Medication Reconciliation I have utilized all available resources to obtain, update and review the patients current medications (includes all prescriptions, OTC, herbals, cannabis, and nutritional supplements).: Yes
[2024-10-20 17:18] LABS: Hematocrit 36.6 % (42.0-52.0); Hemoglobin 12.2 g/dL (14.0-18.0); Mean Corpuscular HGB Conc 33.3 g/dl (32-36); Mean Corpuscular Hemoglobin 32.1 pg (26-34); Mean Corpuscular Volume 96.3 fl (80-100); Mean Platelet Volume 12.4 fl (7.4-10.4); Platelet Count Result 139 k/mm3 (150-375); Red Cell Distribution Width 13.1 % (11.5-14.5); White Blood Count 11.6 K/mm3 (4.5-10.0)
[2024-10-20] MEDS: levETIRAcetam ORAL SOL 500 MG/5 ML UDC 2000 MG FEED TUBE (21:10)
[2024-10-20] MEDS: LACOSAMIDE (*CRX) 50 MG TABLET PO (21:11)
[2024-10-20] MEDS: WATER FOR IRRIGATION, STERILE 1,000 ML BOTTLE 1000 ML (21:11)
[2024-10-21] VITALS (21 sets, daily range): BP systolic 159–193; BP diastolic 80–97; PULSE 91–125; RESP 14–26; TEMP 36.6–37.6; O2SAT 94–98
[2024-10-21] MEDS: PIPERACILLN/TAZ 3.375GM/NS50ML 3.375 GM/50 ML BAG IVPB ×4 (00:14→18:47)
[2024-10-21 01:03] LABS: Glucose Point of Care 113 mg/dl (65-105)
[2024-10-21 04:49] LABS: Basophils Percent Auto 0.2 % (0.2-1.2); Eosinophils Absolute Auto 0.2 K/mm3 (0-0.3); Eosinophils Percent Auto 1.9 % (0-4.4); Hematocrit 35.7 % (42.0-52.0); Hemoglobin 11.8 g/dL (14.0-18.0); Immature Granulocyte Absolute 0.03 K/mm3 (0.00-0.031); Immature Granulocyte Percent A 0.3 % (0-0.5); Lymphocytes Absolute Auto 2.05 K/mm3 (0.9-3.2); Lymphocytes Percent Auto 19.5 % (18.3-44.2); Mean Corpuscular HGB Conc 33.1 g/dl (32-36); Mean Corpuscular Hemoglobin 32.1 pg (26-34); Mean Platelet Volume 12.4 fl (7.4-10.4); Monocytes Absolute Auto 1.2 K/mm3 (0.1-0.6); Monocytes Percent Auto 11.3 % (2.6-8.5); Neutrophils Percent Auto 66.8 % (45.5-73.1); Platelet Count Result 139 k/mm3 (150-375); Red Blood Count 3.68 M/mm3 (4.6-6.20); Red Cell Distribution Width 13.2 % (11.5-14.5); White Blood Count 10.5 K/mm3 (4.5-10.0)
[2024-10-21 05:12] LABS: Erythrocyte Sedimentation Rate 115 mm/hr (0-20)
[2024-10-21 05:37] LABS: Lactic Acid Reflex 1.3 mmol/L (0.7-2.0)
[2024-10-21 05:39] LABS: Alanine Aminotransferase 27 U/L (6-50); Albumin Level 3.3 g/dL (3.5-5.1); Alkaline Phosphatase 85 U/L (38-126); Anion Gap 6 mmol/L (4-12); Aspartate Amino Transferase 34 U/L (17-59); Bilirubin,Total 0.5 mg/dL (0.2-1.3); Blood Urea Nitrogen 6 mg/dL (9-20); Calcium 8.9 mg/dL (8.4-10.2); Carbon Dioxide 27 mmol/L (22-30); Chloride 103 mmol/L (98-107); Estimated CRCL calculation 128 ml/min; Estimated Glomerular Filt Rate > 60; Glucose 132 mg/dL (65-110); Magnesium 1.8 mg/dL (1.6-2.3); Potassium 3.1 mmol/L (3.4-5.0); Sodium 136 mmol/L (137-145)
[2024-10-21 05:58] LABS: Procalcitonin 0.1 ng/mL
[2024-10-21] MEDS: GLYCOPYRROLATE 1 MG TABLET 2 MG FEED TUBE (06:07)
[2024-10-21] MEDS: LACTATED RINGERS 1,000 ML 125 ML IV CONT (06:07)
[2024-10-21] MEDS: VALPROATE SODIUM INJ 500 MG in DEXTROSE 5% IN WATER 50 ML 55 MG IVPB ×2 (10:08→22:43)
[2024-10-21 11:50] LABS: Glucose Point of Care 113 mg/dl (65-105)
[2024-10-21] MEDS: hydrALAZINE HCL 20 MG/ML VIAL 10 MG IV PUSH (12:44)
--- NOTE | 2024-10-21 13:21 | WPDGIPROGNO ---
Progress Note: A&P Assessment and Plan (1) Acute pancreatitis: Code(s): K85.90 - Acute pancreatitis without necrosis or infection, unspecified Status: Acute Assessment and Plan: The patient has recovering acute pancreatitis of biliary origin. Due to multiple medical problems and overall condition, he is not considered a good candidate for cholecystectomy; however, a cholecystostomy tube placement is likely planned for early next week. He reached his nutritional goal yesterday, but this morning presented with abdominal distension despite no evidence of residual gastric content. After discussion with the nursing staff, nasogastric suction will be initiated in addition to the existing gastrostomy suction to alleviate the distension, and nutrition will be paused. He has been receiving Lactated Ringer's solution for several days; the rate was decreased from 125 to 60 mL/hour to prevent volume overload, given that the initial rate was maintained to prevent necrosis. The possibility of fecal impaction is unlikely due to an empty rectal vault, therefore a CT scan is not indicated at this time. Subjective Date/time seen: 10/21/24 13:21 Interval history: The patient had marked abdominal distension this morning, and clear gastric contents leaking around the gastrostomy site. The PEG tube was put to intermnittent suction, and at noon the distension was somewhat improved. Scant amout of clear gastric contents in suction canister. Exam Narrative: Moderate abdominal distention, tympanitic. The gastrostomy tube is lose and the bumper is slipping constantly, not being fixed, allowing leakage around the site, Rectal : Empty rectal vault, very small amounts of clear brown content in glove's finger Objective Data Vital Signs Vital Signs: Vital Signs - 24 hr 10/20/24 14:00 10/20/24 16:00 10/20/24 16:00 Temperature Pulse Rate 96 85 Respiratory Rate Blood Pressure Pulse Oximetry 98 Oxygen Delivery High Flow Therapy with Tr Oxygen Flow Rate 25 Fraction of Inspired Oxygen 28 10/20/24 16:00 10/20/24 18:00 10/20/24 19:23 Temperature 98.6 F 98.6 F Pulse Rate 92 102 H 95 Respiratory Rate 24 H 16 Blood Pressure 184/84 H 150/82 H Pulse Oximetry 100 99 Oxygen Delivery Oxygen Flow Rate Fraction of Inspired Oxygen 10/20/24 20:00 10/20/24 20:00 10/20/24 21:00 Temperature Pulse Rate 93 94 Respiratory Rate 20 Blood Pressure Pulse Oximetry 97 96 Oxygen Delivery High Flow Therapy with Tr High Flow Therapy with Tr Oxygen Flow Rate 25 25 Fraction of Inspired Oxygen 28 10/20/24 21:10 10/20/24 22:00 10/21/24 00:00 Temperature Pulse Rate 97 87 93 Respiratory Rate 18 Blood Pressure 159/80 H Pulse Oximetry 97 Oxygen Delivery Oxygen Flow Rate Fraction of Inspired Oxygen 10/21/24 00:00 10/21/24 00:00 10/21/24 02:00 Temperature Pulse Rate 105 H 96 Respiratory Rate Blood Pressure Pulse Oximetry 97 Oxygen Delivery High Flow Therapy with Tr Oxygen Flow Rate 25 Fraction of Inspired Oxygen 28 10/21/24 02:55 10/21/24 04:00 10/21/24 04:00 Temperature Pulse Rate 99 101 H Respiratory Rate 18 Blood Pressure Pulse Oximetry 95 98 Oxygen Delivery High Flow Therapy with Tr High Flow Therapy with Tr Oxygen Flow Rate 25 25 Fraction of Inspired Oxygen 27 28 10/21/24 04:00 10/21/24 06:00 10/21/24 07:48 Temperature 98.4 F 99.2 F Pulse Rate 95 98 97 Respiratory Rate 26 H 20 Blood Pressure 167/87 H 169/86 H Pulse Oximetry 98 96 Oxygen Delivery Oxygen Flow Rate Fraction of Inspired Oxygen 10/21/24 08:00 10/21/24 10:00 10/21/24 10:03 Temperature Pulse Rate 99 105 H Respiratory Rate Blood Pressure Pulse Oximetry 95 Oxygen Delivery High Flow Therapy with Tr Oxygen Flow Rate 25 Fraction of Inspired Oxygen 28 10/21/24 11:50 Temperature 99.4 F Pulse Rate 104 H Respiratory Rate 18 Blood Pressure 193/97 H Pulse Oximetry 94 Oxygen Delivery Oxygen Flow Rate Fraction of Inspired Oxygen Intake/Output Intake/Output: Intake & Output 10/18/24 10/19/24 10/20/24 10/21/24 23:59 23:59 23:59 23:59 Intake Total 1850 2645 3326.7 2173 Output Total 1700 3600 1850 950 Balance 150 -955 1476.7 1223 Meds/Results Medications: Active Medications Generic Name Dose Route Start Last Admin Trade Name Freq PRN Reason Stop Dose Admin Acetaminophen 325 mg 10/21/24 12:12 Acetaminophen 325 Mg Suppository RECTAL Q4H PRN Mild Pain (1-3) or Fever Albuterol/Ipratropium 3 ml 10/19/24 00:22 Ipratropium 0.5 Mg/Albuterol Sulfate 2.5 Mg Ampul.Neb 3 Ml INHALATION Q6HRT PRN Shortness Of Breath Bisacodyl 10 mg 10/19/24 00:22 Bisacodyl 10 Mg Suppository RECTAL DAILY PRN Constipation Clobazam 10 mg 10/19/24 09:00 10/21/24 10:07 Clobazam (*Crx) 10 Mg Tablet FEED TUBE Not Given DAILY TERRELL Dextrose 12.5 gm 10/20/24 20:45 Dextrose 50% 25 Gm/50 Ml Syringe IV PUSH PRN PRN Hypoglycemia Protocol Folic Acid 1 mg 10/19/24 09:00 10/21/24 10:07 Folic Acid 1 Mg Tablet FEED TUBE Not Given DAILY TERRELL Glucose 15 gm 10/20/24 20:45 Glucose Oral Gel 15 Gm Of Glucse In 37.5 Gm Tube PO PRN PRN Hypoglycemia Protocol Glycopyrrolate 2 mg 10/19/24 00:50 10/21/24 12:14 Glycopyrrolate 1 Mg Tablet FEED TUBE Not Given Q8HR TERRELL Hydromorphone HCl 0.5 mg 10/18/24 19:08 Hydromorphone Hcl Inj (*Crx) 2 Mg/Ml Vial IV PUSH Q4H PRN Pain Rated 7-10 Piperacillin/Tazobactam/Dextrose 3.375 gm in 50 mls @ 100 mls/hr 10/19/24 01:00 10/21/24 06:06 Zosyn 3.375 Gm/Ns 50 Ml IVPB 100 mls/hr Q6HR TERRELL Administration Lactated Ringer's 1,000 mls @ 125 mls/hr 10/19/24 00:05 10/21/24 10:07 Lr - Lactated Ringers Iv IV CONT Not Given .Q8H TERRELL Valproate Sodium 500 mg/ 55 mls @ 55 mls/hr 10/20/24 22:00 10/21/24 10:08 Dextrose IVPB 10/21/24 21:59 55 mls/hr Q12HR TERRELL Administration Valproate Sodium 500 mg/ 55 mls @ 55 mls/hr 10/22/24 21:00 Dextrose IVPB 10/22/24 21:59 Q24H TERRELL Dextrose 1,000 mls @ 100 mls/hr 10/20/24 20:45 Dextrose 5% 1,000 Ml IVPB PRN PRN Hypoglycemia Protocol Potassium Chloride 40 meq/ 520 mls @ 130 mls/hr 10/21/24 12:31 Sodium Chloride IVPB 10/21/24 16:30 ONCE ONE Levetiracetam 1,000 mg in 100 mls @ 400 mls/hr 10/21/24 12:46 Keppra Iv IVPB Q12HR [facility] Levetiracetam 1,000 mg in 100 mls @ 400 mls/hr 10/21/24 12:45 Keppra Iv IVPB Q12HR [facility] Lacosamide 200 mg 10/19/24 01:10 10/21/24 12:14 Lacosamide (*Crx) 200 Mg Tablet FEED TUBE Not Given Q12HR [facility] Lacosamide 50 mg 10/20/24 21:00 10/21/24 12:14 Lacosamide (*Crx) 50 Mg Tablet PO Not Given Q12HR [facility] Lorazepam 2 mg 10/19/24 10:34 Lorazepam Inj (*Crx) 2 Mg/Ml Vial IV PUSH Q4HR PRN Seizure Activity Magnesium Hydroxide 30 ml 10/19/24 00:22 Magnesium Hydroxide Susp 30 Ml Udc PO HS PRN Constipation Metoclopramide HCl 10 mg 10/19/24 09:00 Metoclopramide Hcl 10 Mg Tablet FEED TUBE TID [facility] Metoprolol Tartrate 25 mg 10/19/24 00:25 10/21/24 10:08 Metoprolol Tartrate 25 Mg Tablet FEED TUBE Not Given Q12HR [facility] Metoprolol Tartrate 5 mg 10/21/24 12:55 Metoprolol Tartrate Inj 5 Mg/5 Ml Vial IV PUSH Q12HR [facility] Ondansetron HCl 4 mg 10/18/24 19:08 Ondansetron Inj 4 Mg/2 Ml Vial IV PUSH Q4H PRN Nausea Senna 8.6 mg 10/19/24 09:00 10/21/24 12:14 Sennosides 8.6 Mg Tablet FEED TUBE Not Given BID [facility] Thiamine HCl 100 mg 10/19/24 09:00 10/21/24 10:08 Thiamine Hcl 100 Mg Tablet FEED TUBE Not Given DAILY [facility] Radiology Results: ITS Impressions Abdomen/Pelvis CT 10/18/24 16:48 IMPRESSION: Findings consistent consistent with acute cholecystitis, as detailed above. Malpositioning of the balloon for the percutaneous gastrostomy, as detailed above. Abdomen CT 10/18/24 22:58 IMPRESSION: Findings consistent with (likely) gallstone pancreatitis, as detailed above. Imaging findings are now much clearer after fluid resuscitation. Redemonstration of a percutaneous gastrostomy with its balloon extending to the level of the pylorus, rather than immediately beneath the undersurface of the anterior abdominal wall for which withdrawal of 4.9 cm (with the balloon continuously inflated) is recommended for optimal radiographic placement. Abdomen X-Ray 10/21/24 09:22 IMPRESSION: Distended air opacified colon without air in the rectum suggesting fecal impaction for which cross-sectional imaging versus clinical correlation is suggested. Labs Labs: Laboratory Results - last 24 hr 10/20/24 10/21/24 10/21/24 17:14 00:11 04:43 WBC 11.6 H 10.5 H RBC 3.80 L 3.68 L Hgb 12.2 L 11.8 L Hct 36.6 L 35.7 L MCV 96.3 97.0 MCH 32.1 32.1 MCHC 33.3 33.1 RDW 13.1 13.2 Plt Count 139 L 139 L MPV 12.4 H 12.4 H Immature Gran % (Auto) 0.3 Neut % (Auto) 66.8 Lymph % (Auto) 19.5 [place] % (Auto) 11.3 H Eos % (Auto) 1.9 Baso % (Auto) 0.2 Lymph # (Auto) 2.05 [place] # (Auto) 1.2 H Eos # (Auto) 0.2 Baso # (Auto) 0.0 Abs Immat Gran (auto) 0.03 Absolute Neuts (auto) 7.0 H Absolute Nucleated RBC 0.000 Nucleated RBC % 0.0 ESR Sodium Potassium Chloride Carbon Dioxide Anion Gap BUN Creatinine Estim Creat Clear Calc Estimated GFR Glucose POC Capillary Glucose 113 H Lactic Acid Calcium Magnesium Total Bilirubin AST ALT Alkaline Phosphatase Total Protein Albumin Procalcitonin 10/21/24 10/21/24 04:44 11:34 WBC RBC Hgb Hct MCV MCH MCHC RDW Plt Count MPV Immature Gran % (Auto) Neut % (Auto) Lymph % (Auto) [place] % (Auto) Eos % (Auto) Baso % (Auto) Lymph # (Auto) [place] # (Auto) Eos # (Auto) Baso # (Auto) Abs Immat Gran (auto) Absolute Neuts (auto) Absolute Nucleated RBC Nucleated RBC % ESR 115 H Sodium 136 L Potassium 3.1 L Chloride 103 Carbon Dioxide 27 Anion Gap 6 BUN 6 L Creatinine 0.52 L Estim Creat Clear Calc 128 Estimated GFR > 60 Glucose 132 H POC Capillary Glucose 113 H Lactic Acid 1.3 Calcium 8.9 Magnesium 1.8 Total Bilirubin 0.5 AST 34 ALT 27 Alkaline Phosphatase 85 Total Protein 7.0 Albumin 3.3 L Procalcitonin 0.1
[2024-10-21] MEDS: POTASSIUM CHLORIDE INJ 40 MEQ in SODIUM CHLORIDE 0.9% IV 500 ML 130 MEQ IVPB (13:49)
[2024-10-21] MEDS: levETIRAcetam 1000MG/NACL100ML 1,000 MG/100 ML BAG 400 MG IVPB ×4 (13:49→22:42)
[2024-10-21] MEDS: ACETAMINOPHEN 325 MG SUPPOSITORY RECTAL (13:50)
--- NOTE | 2024-10-21 15:46 | P.PNGS_ITS ---
Progress Note: A&P Assessment and Plan (1) Cholecystitis: Code(s): K81.9 - Cholecystitis, unspecified Status: Acute Assessment and Plan: * Continue broad spectrum antibiotics. Overall not a good surgical candidate. Possible cholecystostomy tube placement on Tuesday depending on interventional radiology schedule. (2) Acute pancreatitis: Code(s): K85.90 - Acute pancreatitis without necrosis or infection, unspecified Status: Acute (3) Severe sepsis: Code(s): A41.9 - Sepsis, unspecified organism; R65.20 - Severe sepsis without septic shock Status: Acute (4) Chronic hypoxemic respiratory failure: Code(s): J96.11 - Chronic respiratory failure with hypoxia Status: Chronic (5) Epilepsy: Code(s): G40.909 - Epilepsy, unspecified, not intractable, without status epilepticus Status: Acute (6) Cerebrovascular accident: Code(s): I63.9 - Cerebral infarction, unspecified Status: Chronic Subjective Subjective Date/Time Seen: 10/21/24 15:46 Interval history: Patient is not tolerating tube feedings. He has vomited multiple times. Still having some abdominal pain. Exam GI: Inspection: non-distended GI Palp: Yes Soft to palpation, Yes Tenderness to palpation present (GI) (Right upper quadrant), No Guarding due to palpation present (GI) and No Rebound tenderness present Auscultation: normal bowel sounds Objective Data Vital Signs Vital Signs: Vital Signs - 24 hr 10/20/24 16:00 10/20/24 16:00 10/20/24 16:00 Temperature 98.6 F Pulse Rate 85 92 Respiratory Rate 24 H Blood Pressure 184/84 H Pulse Oximetry 98 100 Oxygen Delivery High Flow Therapy with Tr Oxygen Flow Rate 25 Fraction of Inspired Oxygen 10/20/24 18:00 10/20/24 19:23 10/20/24 20:00 Temperature 98.6 F Pulse Rate 102 H 95 Respiratory Rate 16 Blood Pressure 150/82 H Pulse Oximetry 99 97 Oxygen Delivery High Flow Therapy with Tr Oxygen Flow Rate 25 Fraction of Inspired Oxygen 10/20/24 20:00 10/20/24 21:00 10/20/24 21:10 Temperature Pulse Rate 93 94 97 Respiratory Rate 20 Blood Pressure Pulse Oximetry 96 Oxygen Delivery High Flow Therapy with Tr Oxygen Flow Rate 25 Fraction of Inspired Oxygen 10/20/24 22:00 10/21/24 00:00 10/21/24 00:00 Temperature Pulse Rate 87 93 Respiratory Rate 18 Blood Pressure 159/80 H Pulse Oximetry 97 97 Oxygen Delivery High Flow Therapy with Tr Oxygen Flow Rate 25 Fraction of Inspired Oxygen 28 10/21/24 00:00 10/21/24 02:00 10/21/24 02:55 Temperature Pulse Rate 105 H 96 99 Respiratory Rate 18 Blood Pressure Pulse Oximetry 95 Oxygen Delivery High Flow Therapy with Tr Oxygen Flow Rate 25 Fraction of Inspired Oxygen 27 10/21/24 04:00 10/21/24 04:00 10/21/24 04:00 Temperature 98.4 F Pulse Rate 101 H 95 Respiratory Rate 26 H Blood Pressure 167/87 H Pulse Oximetry 98 98 Oxygen Delivery High Flow Therapy with Tr Oxygen Flow Rate 25 Fraction of Inspired Oxygen 28 10/21/24 06:00 10/21/24 07:48 10/21/24 08:00 Temperature 99.2 F Pulse Rate 98 97 99 Respiratory Rate 20 Blood Pressure 169/86 H Pulse Oximetry 96 Oxygen Delivery Oxygen Flow Rate Fraction of Inspired Oxygen 10/21/24 10:00 10/21/24 10:03 10/21/24 11:50 Temperature 99.4 F Pulse Rate 105 H 104 H Respiratory Rate 18 Blood Pressure 193/97 H Pulse Oximetry 95 94 Oxygen Delivery High Flow Therapy with Tr Oxygen Flow Rate 25 Fraction of Inspired Oxygen 28 10/21/24 14:46 Temperature Pulse Rate Respiratory Rate Blood Pressure Pulse Oximetry 96 Oxygen Delivery High Flow Therapy with Tr Oxygen Flow Rate 25 Fraction of Inspired Oxygen 28 Intake/Output Intake/Output: Intake & Output 10/18/24 10/19/24 10/20/24 10/21/24 23:59 23:59 23:59 23:59 Intake Total 1850 2645 3326.7 2223 Output Total 1700 3600 1850 950 Balance 150 -955 1476.7 1273 Meds/Results Medications: Active Medications Generic Name Dose Route Start Last Admin Trade Name Freq PRN Reason Stop Dose Admin Acetaminophen 325 mg 10/21/24 12:12 10/21/24 13:50 Acetaminophen 325 Mg Suppository RECTAL 325 mg Q4H PRN Administration Mild Pain (1-3) or Fever Albuterol/Ipratropium 3 ml 10/19/24 00:22 Ipratropium 0.5 Mg/Albuterol Sulfate 2.5 Mg Ampul.Neb 3 Ml INHALATION Q6HRT PRN Shortness Of Breath Bisacodyl 10 mg 10/19/24 00:22 Bisacodyl 10 Mg Suppository RECTAL DAILY PRN Constipation Clobazam 10 mg 10/19/24 09:00 10/21/24 10:07 Clobazam (*Crx) 10 Mg Tablet FEED TUBE Not Given DAILY TERRELL Dextrose 12.5 gm 10/20/24 20:45 Dextrose 50% 25 Gm/50 Ml Syringe IV PUSH PRN PRN Hypoglycemia Protocol Folic Acid 1 mg 10/19/24 09:00 10/21/24 10:07 Folic Acid 1 Mg Tablet FEED TUBE Not Given DAILY TERRELL Glucose 15 gm 10/20/24 20:45 Glucose Oral Gel 15 Gm Of Glucse In 37.5 Gm Tube PO PRN PRN Hypoglycemia Protocol Glycopyrrolate 2 mg 10/19/24 00:50 10/21/24 12:14 Glycopyrrolate 1 Mg Tablet FEED TUBE Not Given Q8HR TER[facility] Hydromorphone HCl 0.5 mg 10/18/24 19:08 Hydromorphone Hcl Inj (*Crx) 2 Mg/Ml Vial IV PUSH Q4H PRN Pain Rated 7-10 Piperacillin/Tazobactam/Dextrose 3.375 gm in 50 mls @ 100 mls/hr 10/19/24 01:00 10/21/24 13:48 Zosyn 3.375 Gm/Ns 50 Ml IVPB 100 mls/hr Q6HR TERRE[facility] Administration Lactated Ringer's 1,000 mls @ 60 mls/hr 10/19/24 00:05 10/21/24 10:07 Lr - Lactated Ringers Iv IV CONT Not Given .[id number] TERRELL Valproate Sodium 500 mg/ 55 mls @ 55 mls/hr 10/20/24 22:00 10/21/24 10:08 Dextrose IVPB 10/21/24 21:59 55 mls/hr Q12HR TERRELL Administration Valproate Sodium 500 mg/ 55 mls @ 55 mls/hr 10/22/24 21:00 Dextrose IVPB 10/22/24 21:59 Q24H TERRELL Dextrose 1,000 mls @ 100 mls/hr 10/20/24 20:45 Dextrose 5% 1,000 Ml IVPB PRN PRN Hypoglycemia Protocol Potassium Chloride 40 meq/ 520 mls @ 130 mls/hr 10/21/24 12:31 10/21/24 13:49 Sodium Chloride IVPB 10/21/24 16:30 130 mls/hr ONCE ONE Administration Levetiracetam 1,000 mg in 100 mls @ 400 mls/hr 10/21/24 12:46 10/21/24 13:49 Keppra Iv IVPB 400 mls/hr Q12HR TERRELL Administration Levetiracetam 1,000 mg in 100 mls @ 400 mls/hr 10/21/24 12:45 10/21/24 13:52 Keppra Iv IVPB 400 mls/hr Q12HR TER[facility] Administration Lacosamide 200 mg 10/19/24 01:10 10/21/24 12:14 Lacosamide (*Crx) 200 Mg Tablet FEED TUBE Not Given Q12HR [facility] Lacosamide 50 mg 10/20/24 21:00 10/21/24 12:14 Lacosamide (*Crx) 50 Mg Tablet PO Not Given Q12HR [facility] Lorazepam 2 mg 10/19/24 10:34 Lorazepam Inj (*Crx) 2 Mg/Ml Vial IV PUSH Q4HR PRN Seizure Activity Magnesium Hydroxide 30 ml 10/19/24 00:22 Magnesium Hydroxide Susp 30 Ml Udc PO HS PRN Constipation Metoclopramide HCl 10 mg 10/19/24 09:00 Metoclopramide Hcl 10 Mg Tablet FEED TUBE TID [facility] Metoprolol Tartrate 25 mg 10/19/24 00:25 10/21/24 10:08 Metoprolol Tartrate 25 Mg Tablet FEED TUBE Not Given Q12HR [facility] Metoprolol Tartrate 5 mg 10/21/24 12:55 Metoprolol Tartrate Inj 5 Mg/5 Ml Vial IV PUSH Q12HR [facility] Ondansetron HCl 4 mg 10/18/24 19:08 Ondansetron Inj 4 Mg/2 Ml Vial IV PUSH Q4H PRN Nausea Senna 8.6 mg 10/19/24 09:00 10/21/24 12:14 Sennosides 8.6 Mg Tablet FEED TUBE Not Given BID [facility] Thiamine HCl 100 mg 10/19/24 09:00 10/21/24 10:08 Thiamine Hcl 100 Mg Tablet FEED TUBE Not Given DAILY TERRE[facility] Radiology Results: ITS Impressions Abdomen/Pelvis CT 10/18/24 16:48 IMPRESSION: Findings consistent consistent with acute cholecystitis, as detailed above. Malpositioning of the balloon for the percutaneous gastrostomy, as detailed above. Abdomen CT 10/18/24 22:58 IMPRESSION: Findings consistent with (likely) gallstone pancreatitis, as detailed above. Imaging findings are now much clearer after fluid resuscitation. Redemonstration of a percutaneous gastrostomy with its balloon extending to the level of the pylorus, rather than immediately beneath the undersurface of the anterior abdominal wall for which withdrawal of 4.9 cm (with the balloon continuously inflated) is recommended for optimal radiographic placement. Abdomen X-Ray 10/21/24 09:22 IMPRESSION: Distended air opacified colon without air in the rectum suggesting fecal impaction for which cross-sectional imaging versus clinical correlation is suggested. Labs Labs: Laboratory Results - last 24 hr 10/20/24 10/21/24 10/21/24 17:14 00:11 04:43 WBC 11.6 H 10.5 H RBC 3.80 L 3.68 L Hgb 12.2 L 11.8 L Hct 36.6 L 35.7 L MCV 96.3 97.0 MCH 32.1 32.1 MCHC 33.3 33.1 RDW 13.1 13.2 Plt Count 139 L 139 L MPV 12.4 H 12.4 H Immature Gran % (Auto) 0.3 Neut % (Auto) 66.8 Lymph % (Auto) 19.5 [place] % (Auto) 11.3 H Eos % (Auto) 1.9 Baso % (Auto) 0.2 Lymph # (Auto) 2.05 [place] # (Auto) 1.2 H Eos # (Auto) 0.2 Baso # (Auto) 0.0 Abs Immat Gran (auto) 0.03 Absolute Neuts (auto) 7.0 H Absolute Nucleated RBC 0.000 Nucleated RBC % 0.0 ESR Sodium Potassium Chloride Carbon Dioxide Anion Gap BUN Creatinine Estim Creat Clear Calc Estimated GFR Glucose POC Capillary Glucose 113 H Lactic Acid Calcium Magnesium Total Bilirubin AST ALT Alkaline Phosphatase Total Protein Albumin Procalcitonin 10/21/24 10/21/24 04:44 11:34 WBC RBC Hgb Hct MCV MCH MCHC RDW Plt Count MPV Immature Gran % (Auto) Neut % (Auto) Lymph % (Auto) [place] % (Auto) Eos % (Auto) Baso % (Auto) Lymph # (Auto) [place] # (Auto) Eos # (Auto) Baso # (Auto) Abs Immat Gran (auto) Absolute Neuts (auto) Absolute Nucleated RBC Nucleated RBC % ESR 115 H Sodium 136 L Potassium 3.1 L Chloride 103 Carbon Dioxide 27 Anion Gap 6 BUN 6 L Creatinine 0.52 L Estim Creat Clear Calc 128 Estimated GFR > 60 Glucose 132 H POC Capillary Glucose 113 H Lactic Acid 1.3 Calcium 8.9 Magnesium 1.8 Total Bilirubin 0.5 AST 34 ALT 27 Alkaline Phosphatase 85 Total Protein 7.0 Albumin 3.3 L Procalcitonin 0.1
[2024-10-21] MEDS: METOPROLOL TARTRATE INJ 5 MG/5 ML VIAL IV PUSH ×2 (16:04→22:42)
--- NOTE | 2024-10-21 16:30 | PM.IMPN ---
Progress Note: A&P Assessment and Plan (1) Cholecystitis: Code(s): K81.9 - Cholecystitis, unspecified Status: Acute Assessment and Plan: -Nausea, vomiting, abdominal distension -CT findings of markedly distended gallbladder with layering stones and surrounding free fluid -Lipase highly elevated raising concern for choledocholithiasis with acute pancreatitis -IV Zosyn started in ER -NPO status (except vital medications) -PRN pain and nausea medication -GI and General Surgery consulted by ER provider -MRCP ordered for tomorrow -Hold Eliquis SCDs for VTE prophylaxis -Morning labs ordered -IV fluids given for elevated lipase and highly elevated lactic acid -Ordered STAT procalcitonin, ESR, CRP with daily recheck x3 -Possible cholecystostomy tube placement on Tuesday depending on interventional radiology schedule (2) Severe sepsis: Code(s): A41.9 - Sepsis, unspecified organism; R65.20 - Severe sepsis without septic shock Status: Acute Assessment and Plan: Due to cholecystitis, see above (3) Pancreatitis: Code(s): K85.90 - Acute pancreatitis without necrosis or infection, unspecified Status: Acute Assessment and Plan: See above, concern for choledocholithiasis (4) Malfunction of gastrostomy tube: Code(s): K94.23 - Gastrostomy malfunction Status: Acute Assessment and Plan: -CT abdomen pelvis showed G-tube malpositioned too deep within the stomach -This was pulled back by ER provider -Current NPO status (except vital medications) due to acute cholecystitis and pancreatitis (5) History of multiple strokes: Code(s): Z86.73 - Personal history of transient ischemic attack (TIA), and cerebral infarction without residual deficits Status: Chronic Assessment and Plan: -Non-verbal with trach and G-tube chronically due to prior CVAs with significant residual deficits (6) Epilepsy: Code(s): G40.909 - Epilepsy, unspecified, not intractable, without status epilepticus Status: Acute Assessment and Plan: -History of epilepsy, on multiple medications which will be continued Dose adjustment will be done as per neurologist request. Will taper Depakote from t.i.d. to b.i.d. to once a day and will be totally discontinued from Tuesday. Vimpat will be increased from 200 mg p.o. b.i.d. to 250 mg p.o. b.i.d.. And Keppra will be increased from 17 50 mg p.o. b.i.d. to 2 g p.o. b.i.d. (7) Acute lactic acidosis: Code(s): E87.21 - Acute metabolic acidosis Status: Acute Assessment and Plan: -Likely due to severe sepsis related to acute cholecystitis -Improvement on recheck after additional IV fluids -May rise again by morning after seizure -Patient profoundly dehydrated upon arrival to ER. Subjective Date/time seen: 10/21/24 16:30 Interval history: Patient recently in [facility] ED and returned to [place] and returned back to [place] ED same day. He was diagnosed with Pancreatitis and Cholecystitis. Yesterday tube feed started but patient is unable to tolerate and today stopped the feeding. Had a very long discussion with SHARI. She is a poor historian . She wants patient to be full code and wants everything to be done. Patient has very poor candidate for surgical intervention. I explained the seizure medication adjustments and she agrees to it. Review of Systems Review of Systems: ROS unobtainable: Yes unobtainable due to mental status Exam Narrative: GENERAL: Chronically ill-appearing, well-nourished, and in no acute distress. HEAD: Normocephalic, atraumatic. EYES: PERRL and EOMI. NECK: Supple. Tracheostomy with no significant plugging of the tube. CHEST: Clear to auscultation. No respiratory distress. HEART: Regular rate and rhythm. Normal peripheral pulses. ABDOMEN: Mildly distended abdomen without significant tenderness. Peg site appears normal. Normal bowel sounds. EXTREMITIES: Right lower extremity in cushion boot. Left AKA. NEURO: Awake, alert, and at neurologic baseline. Objective Data Vital Signs Vital Signs: Vital Signs - 24 hr 10/20/24 18:00 10/20/24 19:23 10/20/24 20:00 Temperature 98.6 F Pulse Rate 102 H 95 Respiratory Rate 16 Blood Pressure 150/82 H Pulse Oximetry 99 97 Oxygen Delivery High Flow Therapy with Tr Oxygen Flow Rate 25 Fraction of Inspired Oxygen 28 10/20/24 20:00 10/20/24 21:00 10/20/24 21:10 Temperature Pulse Rate 93 94 97 Respiratory Rate 20 Blood Pressure Pulse Oximetry 96 Oxygen Delivery High Flow Therapy with Tr Oxygen Flow Rate 25 Fraction of Inspired Oxygen 27 10/20/24 22:00 10/21/24 00:00 10/21/24 00:00 Temperature Pulse Rate 87 93 Respiratory Rate 18 Blood Pressure 159/80 H Pulse Oximetry 97 97 Oxygen Delivery High Flow Therapy with Tr Oxygen Flow Rate 25 Fraction of Inspired Oxygen 28 10/21/24 00:00 10/21/24 02:00 10/21/24 02:55 Temperature Pulse Rate 105 H 96 99 Respiratory Rate 18 Blood Pressure Pulse Oximetry 95 Oxygen Delivery High Flow Therapy with Tr Oxygen Flow Rate 25 Fraction of Inspired Oxygen 27 10/21/24 04:00 10/21/24 04:00 10/21/24 04:00 Temperature 98.4 F Pulse Rate 101 H 95 Respiratory Rate 26 H Blood Pressure 167/87 H Pulse Oximetry 98 98 Oxygen Delivery High Flow Therapy with Tr Oxygen Flow Rate 25 Fraction of Inspired Oxygen 28 10/21/24 06:00 10/21/24 07:48 10/21/24 08:00 Temperature 99.2 F Pulse Rate 98 97 99 Respiratory Rate 20 Blood Pressure 169/86 H Pulse Oximetry 96 Oxygen Delivery Oxygen Flow Rate Fraction of Inspired Oxygen 10/21/24 10:00 10/21/24 10:03 10/21/24 11:50 Temperature 99.4 F Pulse Rate 105 H 104 H Respiratory Rate 18 Blood Pressure 193/97 H Pulse Oximetry 95 94 Oxygen Delivery High Flow Therapy with Tr Oxygen Flow Rate 25 Fraction of Inspired Oxygen 28 10/21/24 14:46 10/21/24 16:00 10/21/24 16:04 Temperature 99.6 F Pulse Rate 121 H 123 H Respiratory Rate 14 Blood Pressure 162/87 H Pulse Oximetry 96 97 Oxygen Delivery High Flow Therapy with Tr Oxygen Flow Rate 25 Fraction of Inspired Oxygen 28 Intake/Output Intake/Output: Intake & Output 10/18/24 10/19/24 10/20/24 10/21/24 23:59 23:59 23:59 23:59 Intake Total 1850 2645 3326.7 2223 Output Total 1700 3600 1850 950 Balance 150 -955 1476.7 1273 Meds/Results Medications: Active Medications Generic Name Dose Route Start Last Admin Trade Name Freq PRN Reason Stop Dose Admin Acetaminophen 325 mg 10/21/24 12:12 10/21/24 13:50 Acetaminophen 325 Mg Suppository RECTAL 325 mg Q4H PRN Administration Mild Pain (1-3) or Fever Albuterol/Ipratropium 3 ml 10/19/24 00:22 Ipratropium 0.5 Mg/Albuterol Sulfate 2.5 Mg Ampul.Neb 3 Ml INHALATION Q6HRT PRN Shortness Of Breath Bisacodyl 10 mg 10/19/24 00:22 Bisacodyl 10 Mg Suppository RECTAL DAILY PRN Constipation Clobazam 10 mg 10/19/24 09:00 10/21/24 10:07 Clobazam (*Crx) 10 Mg Tablet FEED TUBE Not Given DAILY TERRELL Dextrose 12.5 gm 10/20/24 20:45 Dextrose 50% 25 Gm/50 Ml Syringe IV PUSH PRN PRN Hypoglycemia Protocol Folic Acid 1 mg 10/19/24 09:00 10/21/24 10:07 Folic Acid 1 Mg Tablet FEED TUBE Not Given DAILY TERRELL Glucose 15 gm 10/20/24 20:45 Glucose Oral Gel 15 Gm Of Glucse In 37.5 Gm Tube PO PRN PRN Hypoglycemia Protocol Glycopyrrolate 2 mg 10/19/24 00:50 10/21/24 12:14 Glycopyrrolate 1 Mg Tablet FEED TUBE Not Given Q8HR TERRELL Hydromorphone HCl 0.5 mg 10/18/24 19:08 Hydromorphone Hcl Inj (*Crx) 2 Mg/Ml Vial IV PUSH Q4H PRN Pain Rated 7-10 Piperacillin/Tazobactam/Dextrose 3.375 gm in 50 mls @ 100 mls/hr 10/19/24 01:00 10/21/24 13:48 Zosyn 3.375 Gm/Ns 50 Ml IVPB 100 mls/hr Q6HR TERRELL Administration Lactated Ringer's 1,000 mls @ 60 mls/hr 10/19/24 00:05 10/21/24 10:07 Lr - Lactated Ringers Iv IV CONT Not Given .[id number] TERRELL Valproate Sodium 500 mg/ 55 mls @ 55 mls/hr 10/20/24 22:00 10/21/24 10:08 Dextrose IVPB 10/21/24 21:59 55 mls/hr Q12HR TERRELL Administration Valproate Sodium 500 mg/ 55 mls @ 55 mls/hr 10/22/24 21:00 Dextrose IVPB 10/22/24 21:59 Q24H TERRELL Dextrose 1,000 mls @ 100 mls/hr 10/20/24 20:45 Dextrose 5% 1,000 Ml IVPB PRN PRN Hypoglycemia Protocol Levetiracetam 1,000 mg in 100 mls @ 400 mls/hr 10/21/24 12:46 10/21/24 13:49 Keppra Iv IVPB 400 mls/hr Q12HR TERRELL Administration Levetiracetam 1,000 mg in 100 mls @ 400 mls/hr 10/21/24 12:45 10/21/24 13:52 Keppra Iv IVPB 400 mls/hr Q12HR TERRELL Administration Lacosamide 200 mg 10/19/24 01:10 10/21/24 12:14 Lacosamide (*Crx) 200 Mg Tablet FEED TUBE Not Given Q12HR [facility] Lacosamide 50 mg 10/20/24 21:00 10/21/24 12:14 Lacosamide (*Crx) 50 Mg Tablet PO Not Given Q12HR [facility] Lorazepam 2 mg 10/19/24 10:34 Lorazepam Inj (*Crx) 2 Mg/Ml Vial IV PUSH Q4HR PRN Seizure Activity Magnesium Hydroxide 30 ml 10/19/24 00:22 Magnesium Hydroxide Susp 30 Ml Udc PO HS PRN Constipation Metoclopramide HCl 10 mg 10/19/24 09:00 Metoclopramide Hcl 10 Mg Tablet FEED TUBE TID [facility] Metoprolol Tartrate 25 mg 10/19/24 00:25 10/21/24 10:08 Metoprolol Tartrate 25 Mg Tablet FEED TUBE Not Given Q12HR [facility] Metoprolol Tartrate 5 mg 10/21/24 12:55 10/21/24 16:04 Metoprolol Tartrate Inj 5 Mg/5 Ml Vial IV PUSH 5 mg Q12HR TERRELL Administration Ondansetron HCl 4 mg 10/18/24 19:08 Ondansetron Inj 4 Mg/2 Ml Vial IV PUSH Q4H PRN Nausea Senna 8.6 mg 10/19/24 09:00 10/21/24 12:14 Sennosides 8.6 Mg Tablet FEED TUBE Not Given BID TERRELL Thiamine HCl 100 mg 10/19/24 09:00 10/21/24 10:08 Thiamine Hcl 100 Mg Tablet FEED TUBE Not Given DAILY TERRELL Radiology Results: ITS Impressions Abdomen/Pelvis CT 10/18/24 16:48 IMPRESSION: Findings consistent consistent with acute cholecystitis, as detailed above. Malpositioning of the balloon for the percutaneous gastrostomy, as detailed above. Abdomen CT 10/18/24 22:58 IMPRESSION: Findings consistent with (likely) gallstone pancreatitis, as detailed above. Imaging findings are now much clearer after fluid resuscitation. Redemonstration of a percutaneous gastrostomy with its balloon extending to the level of the pylorus, rather than immediately beneath the undersurface of the anterior abdominal wall for which withdrawal of 4.9 cm (with the balloon continuously inflated) is recommended for optimal radiographic placement. Abdomen X-Ray 10/21/24 09:22 IMPRESSION: Distended air opacified colon without air in the rectum suggesting fecal impaction for which cross-sectional imaging versus clinical correlation is suggested. Labs Labs: Laboratory Results - last 24 hr 10/20/24 10/21/24 10/21/24 17:14 00:11 04:43 WBC 11.6 H 10.5 H RBC 3.80 L 3.68 L Hgb 12.2 L 11.8 L Hct 36.6 L 35.7 L MCV 96.3 97.0 MCH 32.1 32.1 MCHC 33.3 33.1 RDW 13.1 13.2 Plt Count 139 L 139 L MPV 12.4 H 12.4 H Immature Gran % (Auto) 0.3 Neut % (Auto) 66.8 Lymph % (Auto) 19.5 [place] % (Auto) 11.3 H Eos % (Auto) 1.9 Baso % (Auto) 0.2 Lymph # (Auto) 2.05 [place] # (Auto) 1.2 H Eos # (Auto) 0.2 Baso # (Auto) 0.0 Abs Immat Gran (auto) 0.03 Absolute Neuts (auto) 7.0 H Absolute Nucleated RBC 0.000 Nucleated RBC % 0.0 ESR Sodium Potassium Chloride Carbon Dioxide Anion Gap BUN Creatinine Estim Creat Clear Calc Estimated GFR Glucose POC Capillary Glucose 113 H Lactic Acid Calcium Magnesium Total Bilirubin AST ALT Alkaline Phosphatase Total Protein Albumin Procalcitonin 10/21/24 10/21/24 04:44 11:34 WBC RBC Hgb Hct MCV MCH MCHC RDW Plt Count MPV Immature Gran % (Auto) Neut % (Auto) Lymph % (Auto) [place] % (Auto) Eos % (Auto) Baso % (Auto) Lymph # (Auto) [place] # (Auto) Eos # (Auto) Baso # (Auto) Abs Immat Gran (auto) Absolute Neuts (auto) Absolute Nucleated RBC Nucleated RBC % ESR 115 H Sodium 136 L Potassium 3.1 L Chloride 103 Carbon Dioxide 27 Anion Gap 6 BUN 6 L Creatinine 0.52 L Estim Creat Clear Calc 128 Estimated GFR > 60 Glucose 132 H POC Capillary Glucose 113 H Lactic Acid 1.3 Calcium 8.9 Magnesium 1.8 Total Bilirubin 0.5 AST 34 ALT 27 Alkaline Phosphatase 85 Total Protein 7.0 Albumin 3.3 L Procalcitonin 0.1 Quality VTE Prophylaxis VTE prophylaxis: mechanical ordered Hospitalist [facility] Advance Care Plan I have confirmed that the patient's Advanced Care Plan is present, code status is documented, or surrogate decision maker is listed in patient medical record.: Yes Medication Reconciliation I have utilized all available resources to obtain, update and review the patients current medications (includes all prescriptions, OTC, herbals, cannabis, and nutritional supplements).: Yes
[2024-10-21 18:16] LABS: Glucose Point of Care 102 mg/dl (65-105)
[2024-10-22] VITALS (18 sets, daily range): BP systolic 134–196; BP diastolic 73–99; PULSE 89–120; RESP 17–26; TEMP 36.9–37.3; O2SAT 95–100
[2024-10-22] MEDS: PIPERACILLN/TAZ 3.375GM/NS50ML 3.375 GM/50 ML BAG IVPB ×4 (00:13→18:01)
[2024-10-22 04:52] LABS: Alanine Aminotransferase 25 U/L (6-50); Albumin Level 3.5 g/dL (3.5-5.1); Alkaline Phosphatase 84 U/L (38-126); Anion Gap 9 mmol/L (4-12); Aspartate Amino Transferase 33 U/L (17-59); Bilirubin,Total 0.9 mg/dL (0.2-1.3); Blood Urea Nitrogen 4 mg/dL (9-20); Calcium 9.2 mg/dL (8.4-10.2); Carbon Dioxide 21 mmol/L (22-30); Chloride 107 mmol/L (98-107); Estimated CRCL calculation 163 ml/min; Estimated Glomerular Filt Rate > 60; Glucose 92 mg/dL (65-110); Magnesium 2.1 mg/dL (1.6-2.3); Potassium 3.5 mmol/L (3.4-5.0); Sodium 137 mmol/L (137-145)
[2024-10-22] MEDS: LACTATED RINGERS 1,000 ML 60 ML IV CONT (05:47)
[2024-10-22 06:10] LABS: Basophils Percent Auto 0.3 % (0.2-1.2); Eosinophils Absolute Auto 0.3 K/mm3 (0-0.3); Eosinophils Percent Auto 2.4 % (0-4.4); Hematocrit 38.4 % (42.0-52.0); Hemoglobin 12.4 g/dL (14.0-18.0); Immature Granulocyte Absolute 0.03 K/mm3 (0.00-0.031); Immature Granulocyte Percent A 0.3 % (0-0.5); Lymphocytes Absolute Auto 1.76 K/mm3 (0.9-3.2); Lymphocytes Percent Auto 15.4 % (18.3-44.2); Mean Corpuscular HGB Conc 32.3 g/dl (32-36); Mean Corpuscular Volume 99.2 fl (80-100); Mean Platelet Volume 12.4 fl (7.4-10.4); Monocytes Absolute Auto 1.2 K/mm3 (0.1-0.6); Monocytes Percent Auto 10.3 % (2.6-8.5); Neutrophils Absolute Auto 8.2 K/mm3 (1.3-6.7); Neutrophils Percent Auto 71.3 % (45.5-73.1); Platelet Count Result 141 k/mm3 (150-375); Red Blood Count 3.87 M/mm3 (4.6-6.20); Red Cell Distribution Width 13.4 % (11.5-14.5); White Blood Count 11.5 K/mm3 (4.5-10.0)
[2024-10-22] MEDS: HYDROmorphone HCL INJ (*CRX) 2 MG/ML VIAL 0.5 MG IV PUSH ×2 (08:51→21:59)
[2024-10-22] MEDS: METOPROLOL TARTRATE INJ 5 MG/5 ML VIAL IV PUSH ×2 (08:52→21:55)
[2024-10-22] MEDS: levETIRAcetam 1000MG/NACL100ML 1,000 MG/100 ML BAG 400 MG IVPB ×4 (08:52→21:45)
--- NOTE | 2024-10-22 09:46 | P.PNIM_ITS ---
Progress Note: A&P Assessment and Plan (1) Cholecystitis: Code(s): K81.9 - Cholecystitis, unspecified Status: Acute Assessment and Plan: -Nausea, vomiting, abdominal distension -CT findings of markedly distended gallbladder with layering stones and surrounding free fluid -Lipase highly elevated raising concern for choledocholithiasis with acute pancreatitis -IV Zosyn started in ER -NPO status (except vital medications) -PRN pain and nausea medication -GI and General Surgery consulted by ER provider -MRCP ordered for tomorrow -Hold Eliquis SCDs for VTE prophylaxis -Morning labs ordered -IV fluids given for elevated lipase and highly elevated lactic acid -Ordered STAT procalcitonin, ESR, CRP with daily recheck x3 -Possible cholecystostomy tube placement on Tuesday depending on interventional radiology schedule (2) Severe sepsis: Code(s): A41.9 - Sepsis, unspecified organism; R65.20 - Severe sepsis without septic shock Status: Acute Assessment and Plan: Due to cholecystitis, see above (3) Pancreatitis: Code(s): K85.90 - Acute pancreatitis without necrosis or infection, unspecified Status: Acute Assessment and Plan: See above, concern for choledocholithiasis (4) Malfunction of gastrostomy tube: Code(s): K94.23 - Gastrostomy malfunction Status: Acute Assessment and Plan: -CT abdomen pelvis showed G-tube malpositioned too deep within the stomach -This was pulled back by ER provider -Current NPO status (except vital medications) due to acute cholecystitis and pancreatitis (5) History of multiple strokes: Code(s): Z86.73 - Personal history of transient ischemic attack (TIA), and cerebral infarction without residual deficits Status: Chronic Assessment and Plan: -Non-verbal with trach and G-tube chronically due to prior CVAs with significant residual deficits (6) Epilepsy: Code(s): G40.909 - Epilepsy, unspecified, not intractable, without status epilepticus Status: Acute Assessment and Plan: -History of epilepsy, on multiple medications which will be continued Dose adjustment will be done as per neurologist request. Will taper Depakote from t.i.d. to b.i.d. to once a day and will be totally discontinued from Tuesday. Vimpat will be increased from 200 mg p.o. b.i.d. to 250 mg p.o. b.i.d.. And Keppra will be increased from 17 50 mg p.o. b.i.d. to 2 g p.o. b.i.d. (7) Acute lactic acidosis: Code(s): E87.21 - Acute metabolic acidosis Status: Acute Assessment and Plan: -Likely due to severe sepsis related to acute cholecystitis -Improvement on recheck after additional IV fluids -May rise again by morning after seizure -Patient profoundly dehydrated upon arrival to ER. Subjective Date/time seen: 10/22/24 09:46 Interval history: Had a long conversation with [facility] hospitalist. As per the hospitalist the patient had G-J tube placement August 06, 2024.Recommend repeat the CT scan of abdominal pelvis. If nausea and vomiting persist after getting cholecystostomy to call back again to initiate transfer. According to the hospitalist at [facility] patient his CT scan at [facility] on 10/17 did not show cholecystitis and lipase was normal. Unable to verify how patient currently has G-tube. As mentioned previously his sister not a great historian. Patient will undergo cholecystostomy tube placement tomorrow. Review of Systems Review of Systems: ROS unobtainable: Yes unobtainable due to mental status Exam Narrative: GENERAL: Chronically ill-appearing, well-nourished, and in no acute distress. HEAD: Normocephalic, atraumatic. EYES: PERRL and EOMI. NECK: Supple. Tracheostomy with no significant plugging of the tube. CHEST: Clear to auscultation. No respiratory distress. HEART: Regular rate and rhythm. Normal peripheral pulses. ABDOMEN: Mildly distended abdomen without significant tenderness. Peg site appears normal. Normal bowel sounds. EXTREMITIES: Right lower extremity in cushion boot. Left AKA. NEURO: Awake, alert, and at neurologic baseline. Objective Data Vital Signs Vital Signs: Vital Signs - 24 hr 10/21/24 10:00 10/21/24 10:03 10/21/24 11:50 Temperature 99.4 F Pulse Rate 105 H 104 H Respiratory Rate 18 Blood Pressure 193/97 H Pulse Oximetry 95 94 Oxygen Delivery High Flow Therapy with Tr Oxygen Flow Rate 25 Fraction of Inspired Oxygen 28 10/21/24 12:00 10/21/24 14:00 10/21/24 14:46 Temperature Pulse Rate 104 H 125 H Respiratory Rate Blood Pressure Pulse Oximetry 96 Oxygen Delivery High Flow Therapy with Tr Oxygen Flow Rate 25 Fraction of Inspired Oxygen 28 10/21/24 16:00 10/21/24 16:00 10/21/24 16:04 Temperature 99.6 F Pulse Rate 121 H 122 H 123 H Respiratory Rate 14 Blood Pressure 162/87 H Pulse Oximetry 97 Oxygen Delivery Oxygen Flow Rate Fraction of Inspired Oxygen 10/21/24 18:00 10/21/24 20:00 10/21/24 20:19 Temperature 97.8 F Pulse Rate 114 H 98 95 Respiratory Rate 20 Blood Pressure 165/85 H Pulse Oximetry 97 Oxygen Delivery Oxygen Flow Rate Fraction of Inspired Oxygen 10/21/24 22:00 10/21/24 22:34 10/21/24 22:42 Temperature Pulse Rate 92 91 Respiratory Rate Blood Pressure Pulse Oximetry 97 Oxygen Delivery High Flow Therapy with Tr Oxygen Flow Rate 25 Fraction of Inspired Oxygen 28 10/22/24 00:00 10/22/24 00:00 10/22/24 02:00 Temperature 99.0 F Pulse Rate 91 92 93 Respiratory Rate 17 Blood Pressure 176/92 H Pulse Oximetry 97 Oxygen Delivery Oxygen Flow Rate Fraction of Inspired Oxygen 10/22/24 04:00 10/22/24 04:00 10/22/24 06:00 Temperature 98.5 F Pulse Rate 89 102 H 109 H Respiratory Rate 18 Blood Pressure 169/80 H Pulse Oximetry 98 Oxygen Delivery Oxygen Flow Rate Fraction of Inspired Oxygen 10/22/24 08:00 10/22/24 08:36 10/22/24 08:52 Temperature 98.7 F Pulse Rate 111 H 109 H Respiratory Rate 24 H Blood Pressure 196/99 H Pulse Oximetry 98 97 Oxygen Delivery High Flow Therapy with Tr Oxygen Flow Rate 25 Fraction of Inspired Oxygen 28 Intake/Output Intake/Output: Intake & Output 10/19/24 10/20/24 10/21/24 10/22/24 23:59 23:59 23:59 23:59 Intake Total 2645 3326.7 2858 896 Output Total 3600 1850 1550 1200 Balance -955 1476.7 1308 -304 Meds/Results Medications: Active Medications Generic Name Dose Route Start Last Admin Trade Name Freq PRN Reason Stop Dose Admin Acetaminophen 325 mg 10/21/24 12:12 10/21/24 13:50 Acetaminophen 325 Mg Suppository RECTAL 325 mg Q4H PRN Administration Mild Pain (1-3) or Fever Albuterol/Ipratropium 3 ml 10/19/24 00:22 Ipratropium 0.5 Mg/Albuterol Sulfate 2.5 Mg Ampul.Neb 3 Ml INHALATION Q6HRT PRN Shortness Of Breath Bisacodyl 10 mg 10/19/24 00:22 Bisacodyl 10 Mg Suppository RECTAL DAILY PRN Constipation Clobazam 10 mg 10/19/24 09:00 10/21/24 10:07 Clobazam (*Crx) 10 Mg Tablet FEED TUBE Not Given DAILY [facility] Dextrose 12.5 gm 10/20/24 20:45 Dextrose 50% 25 Gm/50 Ml Syringe IV PUSH PRN PRN Hypoglycemia Protocol Folic Acid 1 mg 10/19/24 09:00 10/21/24 10:07 Folic Acid 1 Mg Tablet FEED TUBE Not Given DAILY [facility] Glucose 15 gm 10/20/24 20:45 Glucose Oral Gel 15 Gm Of Glucse In 37.5 Gm Tube PO PRN PRN Hypoglycemia Protocol Glycopyrrolate 2 mg 10/19/24 00:50 10/21/24 12:14 Glycopyrrolate 1 Mg Tablet FEED TUBE Not Given Q8HR [facility] Hydromorphone HCl 0.5 mg 10/18/24 19:08 10/22/24 08:51 Hydromorphone Hcl Inj (*Crx) 2 Mg/Ml Vial IV PUSH 0.5 mg Q4H PRN Administration Pain Rated 7-10 Piperacillin/Tazobactam/Dextrose 3.375 gm in 50 mls @ 100 mls/hr 10/19/24 01:00 10/22/24 05:48 Zosyn 3.375 Gm/Ns 50 Ml IVPB 100 mls/hr Q6HR [facility] Administration Lactated Ringer's 1,000 mls @ 60 mls/hr 10/19/24 00:05 10/22/24 05:47 Lr - Lactated Ringers Iv IV CONT 60 mls/hr .[id number] [facility] Administration Valproate Sodium 500 mg/ 55 mls @ 55 mls/hr 10/22/24 21:00 Dextrose IVPB 10/22/24 21:59 Q24H [facility] Dextrose 1,000 mls @ 100 mls/hr 10/20/24 20:45 Dextrose 5% 1,000 Ml IVPB PRN PRN Hypoglycemia Protocol Levetiracetam 1,000 mg in 100 mls @ 400 mls/hr 10/21/24 12:46 10/22/24 08:52 Keppra Iv IVPB 400 mls/hr Q12HR [facility] Administration Levetiracetam 1,000 mg in 100 mls @ 400 mls/hr 10/21/24 12:45 10/22/24 08:53 Keppra Iv IVPB 400 mls/hr Q12HR [facility] Administration Lacosamide 200 mg 10/19/24 01:10 10/21/24 12:14 Lacosamide (*Crx) 200 Mg Tablet FEED TUBE Not Given Q12HR [facility] Lacosamide 50 mg 10/20/24 21:00 10/21/24 12:14 Lacosamide (*Crx) 50 Mg Tablet PO Not Given Q12HR [facility] Lorazepam 2 mg 10/19/24 10:34 Lorazepam Inj (*Crx) 2 Mg/Ml Vial IV PUSH Q4HR PRN Seizure Activity Magnesium Hydroxide 30 ml 10/19/24 00:22 Magnesium Hydroxide Susp 30 Ml Udc PO HS PRN Constipation Metoclopramide HCl 10 mg 10/19/24 09:00 Metoclopramide Hcl 10 Mg Tablet FEED TUBE TID [facility] Metoprolol Tartrate 25 mg 10/19/24 00:25 10/21/24 10:08 Metoprolol Tartrate 25 Mg Tablet FEED TUBE Not Given Q12HR [facility] Metoprolol Tartrate 5 mg 10/21/24 12:55 10/22/24 08:52 Metoprolol Tartrate Inj 5 Mg/5 Ml Vial IV PUSH 5 mg Q12HR [facility] Administration Ondansetron HCl 4 mg 10/18/24 19:08 Ondansetron Inj 4 Mg/2 Ml Vial IV PUSH Q4H PRN Nausea Senna 8.6 mg 10/19/24 09:00 10/21/24 12:14 Sennosides 8.6 Mg Tablet FEED TUBE Not Given BID [facility] Thiamine HCl 100 mg 10/19/24 09:00 10/21/24 10:08 Thiamine Hcl 100 Mg Tablet FEED TUBE Not Given DAILY [facility] Radiology Results: ITS Impressions Abdomen/Pelvis CT 10/18/24 16:48 IMPRESSION: Findings consistent consistent with acute cholecystitis, as detailed above. Malpositioning of the balloon for the percutaneous gastrostomy, as detailed above. Abdomen CT 10/18/24 22:58 IMPRESSION: Findings consistent with (likely) gallstone pancreatitis, as detailed above. Imaging findings are now much clearer after fluid resuscitation. Redemonstration of a percutaneous gastrostomy with its balloon extending to the level of the pylorus, rather than immediately beneath the undersurface of the anterior abdominal wall for which withdrawal of 4.9 cm (with the balloon continuously inflated) is recommended for optimal radiographic placement. Abdomen X-Ray 10/21/24 09:22 IMPRESSION: Distended air opacified colon without air in the rectum suggesting fecal impaction for which cross-sectional imaging versus clinical correlation is suggested. Labs Labs: Laboratory Results - last 24 hr 10/21/24 10/21/24 10/22/24 11:34 17:40 04:13 WBC RBC Hgb Hct MCV MCH MCHC RDW Plt Count MPV Immature Gran % (Auto) Neut % (Auto) Lymph % (Auto) [place] % (Auto) Eos % (Auto) Baso % (Auto) Lymph # (Auto) [place] # (Auto) Eos # (Auto) Baso # (Auto) Abs Immat Gran (auto) Absolute Neuts (auto) Absolute Nucleated RBC Nucleated RBC % Sodium 137 Potassium 3.5 Chloride 107 Carbon Dioxide 21 L Anion Gap 9 BUN 4 L Creatinine 0.40 L Estim Creat Clear Calc 163 Estimated GFR > 60 Glucose 92 POC Capillary Glucose 113 H 102 Calcium 9.2 Magnesium 2.1 Total Bilirubin 0.9 AST 33 ALT 25 Alkaline Phosphatase 84 Total Protein 7.0 Albumin 3.5 10/22/24 06:05 WBC 11.5 H RBC 3.87 L Hgb 12.4 L Hct 38.4 L MCV 99.2 MCH 32.0 MCHC 32.3 RDW 13.4 Plt Count 141 L MPV 12.4 H Immature Gran % (Auto) 0.3 Neut % (Auto) 71.3 Lymph % (Auto) 15.4 L [place] % (Auto) 10.3 H Eos % (Auto) 2.4 Baso % (Auto) 0.3 Lymph # (Auto) 1.76 [place] # (Auto) 1.2 H Eos # (Auto) 0.3 Baso # (Auto) 0.0 Abs Immat Gran (auto) 0.03 Absolute Neuts (auto) 8.2 H Absolute Nucleated RBC 0.000 Nucleated RBC % 0.0 Sodium Potassium Chloride Carbon Dioxide Anion Gap BUN Creatinine Estim Creat Clear Calc Estimated GFR Glucose POC Capillary Glucose Calcium Magnesium Total Bilirubin AST ALT Alkaline Phosphatase Total Protein Albumin Quality VTE Prophylaxis VTE prophylaxis: mechanical ordered Hospitalist MIPS Advance Care Plan I have confirmed that the patient's Advanced Care Plan is present, code status is documented, or surrogate decision maker is listed in patient medical record.: Yes Medication Reconciliation I have utilized all available resources to obtain, update and review the patients current medications (includes all prescriptions, OTC, herbals, cannabis, and nutritional supplements).: Yes
--- NOTE | 2024-10-22 10:32 | PM.PNGS ---
Progress Note: A&P Assessment and Plan (1) Cholecystitis: Code(s): K81.9 - Cholecystitis, unspecified Status: Acute Assessment and Plan: Continue broad spectrum IV antibiotics. Overall not a good surgical candidate. Will proceed with ultrasound-guided percutaneous cholecystostomy tube placement hopefully in the next 1-2 days depending on IR schedule. (2) Acute pancreatitis: Code(s): K85.90 - Acute pancreatitis without necrosis or infection, unspecified Status: Acute (3) Severe sepsis: Code(s): A41.9 - Sepsis, unspecified organism; R65.20 - Severe sepsis without septic shock Status: Acute (4) Chronic hypoxemic respiratory failure: Code(s): J96.11 - Chronic respiratory failure with hypoxia Status: Chronic (5) Epilepsy: Code(s): G40.909 - Epilepsy, unspecified, not intractable, without status epilepticus Status: Acute (6) Cerebrovascular accident: Code(s): I63.9 - Cerebral infarction, unspecified Status: Chronic Subjective Subjective Date/Time Seen: 10/22/24 10:32 Interval history: Patient seen in the IMU and is nonverbal. Patient was vomiting and not tolerating tube feedings, which are now on hold. Ultrasound-guided percutaneous cholecystostomy tube placement ordered. Exam Const: General: comfortable and no acute distress GI: Inspection: non-distended GI Palp: Yes Soft to palpation, Yes Tenderness to palpation present (GI) (Right upper quadrant), No Guarding due to palpation present (GI) and No Rebound tenderness present Auscultation: normal bowel sounds Objective Data Vital Signs Vital Signs: Vital Signs - 24 hr 10/21/24 11:50 10/21/24 12:00 10/21/24 14:00 Temperature 99.4 F Pulse Rate 104 H 104 H 125 H Respiratory Rate 18 Blood Pressure 193/97 H Pulse Oximetry 94 Oxygen Delivery Oxygen Flow Rate Fraction of Inspired Oxygen 10/21/24 14:46 10/21/24 16:00 10/21/24 16:00 Temperature 99.6 F Pulse Rate 121 H 122 H Respiratory Rate 14 Blood Pressure 162/87 H Pulse Oximetry 96 97 Oxygen Delivery High Flow Therapy with Tr Oxygen Flow Rate 25 Fraction of Inspired Oxygen 28 10/21/24 16:04 10/21/24 18:00 10/21/24 20:00 Temperature Pulse Rate 123 H 114 H 98 Respiratory Rate Blood Pressure Pulse Oximetry Oxygen Delivery Oxygen Flow Rate Fraction of Inspired Oxygen 10/21/24 20:19 10/21/24 22:00 10/21/24 22:34 Temperature 97.8 F Pulse Rate 95 92 Respiratory Rate 20 Blood Pressure 165/85 H Pulse Oximetry 97 97 Oxygen Delivery High Flow Therapy with Tr Oxygen Flow Rate 25 Fraction of Inspired Oxygen 10/21/24 22:42 10/22/24 00:00 10/22/24 00:00 Temperature 99.0 F Pulse Rate 91 91 92 Respiratory Rate 17 Blood Pressure 176/92 H Pulse Oximetry 97 Oxygen Delivery Oxygen Flow Rate Fraction of Inspired Oxygen 10/22/24 02:00 10/22/24 04:00 10/22/24 04:00 Temperature 98.5 F Pulse Rate 93 89 102 H Respiratory Rate 18 Blood Pressure 169/80 H Pulse Oximetry 98 Oxygen Delivery Oxygen Flow Rate Fraction of Inspired Oxygen 10/22/24 06:00 10/22/24 08:00 10/22/24 08:36 Temperature 98.7 F Pulse Rate 109 H 111 H Respiratory Rate 24 H Blood Pressure 196/99 H Pulse Oximetry 98 97 Oxygen Delivery High Flow Therapy with Tr Oxygen Flow Rate 25 Fraction of Inspired Oxygen 10/22/24 08:52 Temperature Pulse Rate 109 H Respiratory Rate Blood Pressure Pulse Oximetry Oxygen Delivery Oxygen Flow Rate Fraction of Inspired Oxygen Intake/Output Intake/Output: Intake & Output 10/19/24 10/20/24 10/21/24 10/22/24 23:59 23:59 23:59 23:59 Intake Total 2645 3326.7 2858 896 Output Total 3600 1850 1550 1200 Balance -955 1476.7 1308 -304 Meds/Results Medications: Active Medications Generic Name Dose Route Start Last Admin Trade Name Freq PRN Reason Stop Dose Admin Acetaminophen 325 mg 10/21/24 12:12 10/21/24 13:50 Acetaminophen 325 Mg Suppository RECTAL 325 mg Q4H PRN Administration Mild Pain (1-3) or Fever Albuterol/Ipratropium 3 ml 10/19/24 00:22 Ipratropium 0.5 Mg/Albuterol Sulfate 2.5 Mg Ampul.Neb 3 Ml INHALATION Q6HRT PRN Shortness Of Breath Bisacodyl 10 mg 10/19/24 00:22 Bisacodyl 10 Mg Suppository RECTAL DAILY PRN Constipation Clobazam 10 mg 10/19/24 09:00 10/21/24 10:07 Clobazam (*Crx) 10 Mg Tablet FEED TUBE Not Given DAILY [facility] Dextrose 12.5 gm 10/20/24 20:45 Dextrose 50% 25 Gm/50 Ml Syringe IV PUSH PRN PRN Hypoglycemia Protocol Folic Acid 1 mg 10/19/24 09:00 10/21/24 10:07 Folic Acid 1 Mg Tablet FEED TUBE Not Given DAILY [facility] Glucose 15 gm 10/20/24 20:45 Glucose Oral Gel 15 Gm Of Glucse In 37.5 Gm Tube PO PRN PRN Hypoglycemia Protocol Glycopyrrolate 2 mg 10/19/24 00:50 10/21/24 12:14 Glycopyrrolate 1 Mg Tablet FEED TUBE Not Given Q8HR [facility] Hydromorphone HCl 0.5 mg 10/18/24 19:08 10/22/24 08:51 Hydromorphone Hcl Inj (*Crx) 2 Mg/Ml Vial IV PUSH 0.5 mg Q4H PRN Administration Pain Rated 7-10 Piperacillin/Tazobactam/Dextrose 3.375 gm in 50 mls @ 100 mls/hr 10/19/24 01:00 10/22/24 05:48 Zosyn 3.375 Gm/Ns 50 Ml IVPB 100 mls/hr Q6HR [facility] Administration Lactated Ringer's 1,000 mls @ 60 mls/hr 10/19/24 00:05 10/22/24 05:47 Lr - Lactated Ringers Iv IV CONT 60 mls/hr .[id number] [facility] Administration Valproate Sodium 500 mg/ 55 mls @ 55 mls/hr 10/22/24 21:00 Dextrose IVPB 10/22/24 21:59 Q24H [facility] Dextrose 1,000 mls @ 100 mls/hr 10/20/24 20:45 Dextrose 5% 1,000 Ml IVPB PRN PRN Hypoglycemia Protocol Levetiracetam 1,000 mg in 100 mls @ 400 mls/hr 10/21/24 12:46 10/22/24 08:52 Keppra Iv IVPB 400 mls/hr Q12HR [facility] Administration Levetiracetam 1,000 mg in 100 mls @ 400 mls/hr 10/21/24 12:45 10/22/24 08:53 Keppra Iv IVPB 400 mls/hr Q12HR [facility] Administration Lacosamide 250 mg/ Sodium 100 mls @ 200 mls/hr 10/22/24 11:00 Chloride IVPB Q12HR [facility] Lacosamide 200 mg 10/19/24 01:10 10/21/24 12:14 Lacosamide (*Crx) 200 Mg Tablet FEED TUBE Not Given Q12HR [facility] Lacosamide 50 mg 10/20/24 21:00 10/21/24 12:14 Lacosamide (*Crx) 50 Mg Tablet PO Not Given Q12HR [facility] Lorazepam 2 mg 10/19/24 10:34 Lorazepam Inj (*Crx) 2 Mg/Ml Vial IV PUSH Q4HR PRN Seizure Activity Magnesium Hydroxide 30 ml 10/19/24 00:22 Magnesium Hydroxide Susp 30 Ml Udc PO HS PRN Constipation Metoclopramide HCl 10 mg 10/19/24 09:00 Metoclopramide Hcl 10 Mg Tablet FEED TUBE TID [facility] Metoprolol Tartrate 25 mg 10/19/24 00:25 10/21/24 10:08 Metoprolol Tartrate 25 Mg Tablet FEED TUBE Not Given Q12HR [facility] Metoprolol Tartrate 5 mg 10/21/24 12:55 10/22/24 08:52 Metoprolol Tartrate Inj 5 Mg/5 Ml Vial IV PUSH 5 mg Q12HR [facility] Administration Nitroglycerin 1 patch 10/22/24 09:55 Nitroglycerin 0.1 Mg/Hr Patch TRANSDERM QAM [facility] Ondansetron HCl 4 mg 10/18/24 19:08 Ondansetron Inj 4 Mg/2 Ml Vial IV PUSH Q4H PRN Nausea Senna 8.6 mg 10/19/24 09:00 10/21/24 12:14 Sennosides 8.6 Mg Tablet FEED TUBE Not Given BID [facility] Thiamine HCl 100 mg 10/19/24 09:00 10/21/24 10:08 Thiamine Hcl 100 Mg Tablet FEED TUBE Not Given DAILY [facility] Radiology Results: ITS Impressions Abdomen/Pelvis CT 10/18/24 16:48 IMPRESSION: Findings consistent consistent with acute cholecystitis, as detailed above. Malpositioning of the balloon for the percutaneous gastrostomy, as detailed above. Abdomen CT 10/18/24 22:58 IMPRESSION: Findings consistent with (likely) gallstone pancreatitis, as detailed above. Imaging findings are now much clearer after fluid resuscitation. Redemonstration of a percutaneous gastrostomy with its balloon extending to the level of the pylorus, rather than immediately beneath the undersurface of the anterior abdominal wall for which withdrawal of 4.9 cm (with the balloon continuously inflated) is recommended for optimal radiographic placement. Abdomen X-Ray 10/21/24 09:22 IMPRESSION: Distended air opacified colon without air in the rectum suggesting fecal impaction for which cross-sectional imaging versus clinical correlation is suggested. Labs Labs: Laboratory Results - last 24 hr 10/21/24 10/21/24 10/22/24 11:34 17:40 04:13 WBC RBC Hgb Hct MCV MCH MCHC RDW Plt Count MPV Immature Gran % (Auto) Neut % (Auto) Lymph % (Auto) [place] % (Auto) Eos % (Auto) Baso % (Auto) Lymph # (Auto) [place] # (Auto) Eos # (Auto) Baso # (Auto) Abs Immat Gran (auto) Absolute Neuts (auto) Absolute Nucleated RBC Nucleated RBC % Sodium 137 Potassium 3.5 Chloride 107 Carbon Dioxide 21 L Anion Gap 9 BUN 4 L Creatinine 0.40 L Estim Creat Clear Calc 163 Estimated GFR > 60 Glucose 92 POC Capillary Glucose 113 H 102 Calcium 9.2 Magnesium 2.1 Total Bilirubin 0.9 AST 33 ALT 25 Alkaline Phosphatase 84 Total Protein 7.0 Albumin 3.5 10/22/24 06:05 WBC 11.5 H RBC 3.87 L Hgb 12.4 L Hct 38.4 L MCV 99.2 MCH 32.0 MCHC 32.3 RDW 13.4 Plt Count 141 L MPV 12.4 H Immature Gran % (Auto) 0.3 Neut % (Auto) 71.3 Lymph % (Auto) 15.4 L [place] % (Auto) 10.3 H Eos % (Auto) 2.4 Baso % (Auto) 0.3 Lymph # (Auto) 1.76 [place] # (Auto) 1.2 H Eos # (Auto) 0.3 Baso # (Auto) 0.0 Abs Immat Gran (auto) 0.03 Absolute Neuts (auto) 8.2 H Absolute Nucleated RBC 0.000 Nucleated RBC % 0.0 Sodium Potassium Chloride Carbon Dioxide Anion Gap BUN Creatinine Estim Creat Clear Calc Estimated GFR Glucose POC Capillary Glucose Calcium Magnesium Total Bilirubin AST ALT Alkaline Phosphatase Total Protein Albumin
--- NOTE | 2024-10-22 12:38 | P.PNGI_ITS ---
Progress Note: A&P Assessment and Plan (1) Acute pancreatitis: Code(s): K85.90 - Acute pancreatitis without necrosis or infection, unspecified Status: Acute Assessment and Plan: This patient, who appears to have resolved acute pancreatitis, is now experiencing marked abdominal distension. This occurred after initiating tube feedings 48 hours ago, which is highly concerning given their known history of dysmotility. The family notes a previous PEG-PEJ tube placed at [facility], which is no longer in situ. Therefore, this episode of post-feeding distension is not unexpected. We are working to transfer the patient to [facility], where his medical records are available and the previous feeding tube was managed. In terms of his cholelithiasis, the patient is not a surgical candidate. A cholecystostomy is anticipated for tomorrow. During this procedure, we will request a cholangiogram to document the presence or absence of common bile duct stones, which could be the etiology of his pancreatitis. Subjective Date/time seen: 10/22/24 12:38 Interval history: The patient continued with significant Abdominal distension, and PEG tube drained only 250 cc of dark green, bile looking fluid during 24 hours. Exam Narrative: abdomen: Distended, tympanitic, scant bowel sounds, nontender. Peg tube with no leakage around stoma. Objective Data Vital Signs Vital Signs: Vital Signs - 24 hr 10/21/24 14:00 10/21/24 14:46 10/21/24 16:00 Temperature 99.6 F Pulse Rate 125 H 121 H Respiratory Rate 14 Blood Pressure 162/87 H Pulse Oximetry 96 97 Oxygen Delivery High Flow Therapy with Tr Oxygen Flow Rate 25 Fraction of Inspired Oxygen 28 10/21/24 16:00 10/21/24 16:04 10/21/24 18:00 Temperature Pulse Rate 122 H 123 H 114 H Respiratory Rate Blood Pressure Pulse Oximetry Oxygen Delivery Oxygen Flow Rate Fraction of Inspired Oxygen 10/21/24 20:00 10/21/24 20:19 10/21/24 22:00 Temperature 97.8 F Pulse Rate 98 95 92 Respiratory Rate 20 Blood Pressure 165/85 H Pulse Oximetry 97 Oxygen Delivery Oxygen Flow Rate Fraction of Inspired Oxygen 10/21/24 22:34 10/21/24 22:42 10/22/24 00:00 Temperature Pulse Rate 91 91 Respiratory Rate Blood Pressure Pulse Oximetry 97 Oxygen Delivery High Flow Therapy with Tr Oxygen Flow Rate 25 Fraction of Inspired Oxygen 28 10/22/24 00:00 10/22/24 02:00 10/22/24 04:00 Temperature 99.0 F 98.5 F Pulse Rate 92 93 89 Respiratory Rate 17 18 Blood Pressure 176/92 H 169/80 H Pulse Oximetry 97 98 Oxygen Delivery Oxygen Flow Rate Fraction of Inspired Oxygen 10/22/24 04:00 10/22/24 06:00 10/22/24 08:00 Temperature 98.7 F Pulse Rate 102 H 109 H 111 H Respiratory Rate 24 H Blood Pressure 196/99 H Pulse Oximetry 98 Oxygen Delivery Oxygen Flow Rate Fraction of Inspired Oxygen 10/22/24 08:36 10/22/24 08:52 Temperature Pulse Rate 109 H Respiratory Rate Blood Pressure Pulse Oximetry 97 Oxygen Delivery High Flow Therapy with Tr Oxygen Flow Rate 25 Fraction of Inspired Oxygen 28 Intake/Output Intake/Output: Intake & Output 10/19/24 10/20/24 10/21/24 10/22/24 23:59 23:59 23:59 23:59 Intake Total 2645 3326.7 2858 896 Output Total 3600 1850 1550 1200 Balance -955 1476.7 1308 -304 Meds/Results Medications: Active Medications Generic Name Dose Route Start Last Admin Trade Name Freq PRN Reason Stop Dose Admin Acetaminophen 325 mg 10/21/24 12:12 10/21/24 13:50 Acetaminophen 325 Mg Suppository RECTAL 325 mg Q4H PRN Administration Mild Pain (1-3) or Fever Albuterol/Ipratropium 3 ml 10/19/24 00:22 Ipratropium 0.5 Mg/Albuterol Sulfate 2.5 Mg Ampul.Neb 3 Ml INHALATION Q6HRT PRN Shortness Of Breath Bisacodyl 10 mg 10/19/24 00:22 Bisacodyl 10 Mg Suppository RECTAL DAILY PRN Constipation Clobazam 10 mg 10/19/24 09:00 10/21/24 10:07 Clobazam (*Crx) 10 Mg Tablet FEED TUBE Not Given DAILY [facility] Dextrose 12.5 gm 10/20/24 20:45 Dextrose 50% 25 Gm/50 Ml Syringe IV PUSH PRN PRN Hypoglycemia Protocol Folic Acid 1 mg 10/19/24 09:00 10/21/24 10:07 Folic Acid 1 Mg Tablet FEED TUBE Not Given DAILY TER[facility] Glucose 15 gm 10/20/24 20:45 Glucose Oral Gel 15 Gm Of Glucse In 37.5 Gm Tube PO PRN PRN Hypoglycemia Protocol Glycopyrrolate 2 mg 10/19/24 00:50 10/21/24 12:14 Glycopyrrolate 1 Mg Tablet FEED TUBE Not Given Q8HR [facility] Hydralazine HCl 10 mg 10/22/24 11:45 Hydralazine Hcl 20 Mg/Ml Vial IV PUSH Q6H PRN Blood Pressure - High Hydromorphone HCl 0.5 mg 10/18/24 19:08 10/22/24 08:51 Hydromorphone Hcl Inj (*Crx) 2 Mg/Ml Vial IV PUSH 0.5 mg Q4H PRN Administration Pain Rated 7-10 Piperacillin/Tazobactam/Dextrose 3.375 gm in 50 mls @ 100 mls/hr 10/19/24 01:00 10/22/24 05:48 Zosyn 3.375 Gm/Ns 50 Ml IVPB 100 mls/hr Q6HR [facility] Administration Lactated Ringer's 1,000 mls @ 60 mls/hr 10/19/24 00:05 10/22/24 05:47 Lr - Lactated Ringers Iv IV CONT 60 mls/hr .[id number] TERRLEL Administration Valproate Sodium 500 mg/ 55 mls @ 55 mls/hr 10/22/24 21:00 Dextrose IVPB 10/22/24 21:59 Q24H [facility] Dextrose 1,000 mls @ 100 mls/hr 10/20/24 20:45 Dextrose 5% 1,000 Ml IVPB PRN PRN Hypoglycemia Protocol Levetiracetam 1,000 mg in 100 mls @ 400 mls/hr 10/21/24 12:46 10/22/24 08:52 Keppra Iv IVPB 400 mls/hr Q12HR [facility] Administration Levetiracetam 1,000 mg in 100 mls @ 400 mls/hr 10/21/24 12:45 10/22/24 08:53 Keppra Iv IVPB 400 mls/hr Q12HR [facility] Administration Lacosamide 250 mg/ Sodium 100 mls @ 200 mls/hr 10/22/24 11:00 Chloride IVPB Q12HR [facility] Lacosamide 200 mg 10/19/24 01:10 10/21/24 12:14 Lacosamide (*Crx) 200 Mg Tablet FEED TUBE Not Given Q12HR [facility] Lacosamide 50 mg 10/20/24 21:00 10/21/24 12:14 Lacosamide (*Crx) 50 Mg Tablet PO Not Given Q12HR [facility] Lorazepam 2 mg 10/19/24 10:34 Lorazepam Inj (*Crx) 2 Mg/Ml Vial IV PUSH Q4HR PRN Seizure Activity Magnesium Hydroxide 30 ml 10/19/24 00:22 Magnesium Hydroxide Susp 30 Ml Udc PO HS PRN Constipation Metoclopramide HCl 10 mg 10/19/24 09:00 Metoclopramide Hcl 10 Mg Tablet FEED TUBE TID [facility] Metoprolol Tartrate 25 mg 10/19/24 00:25 10/21/24 10:08 Metoprolol Tartrate 25 Mg Tablet FEED TUBE Not Given Q12HR [facility] Metoprolol Tartrate 5 mg 10/21/24 12:55 10/22/24 08:52 Metoprolol Tartrate Inj 5 Mg/5 Ml Vial IV PUSH 5 mg Q12HR [facility] Administration Miscellaneous Information 1 each 10/22/24 00:01 Hydralazine Prn Blood Pressure-High. Please Give More Specific Parameters For When To Ad XX 11/21/24 00:00 CLARIFY [facility] Nitroglycerin 1 patch 10/22/24 09:55 Nitroglycerin 0.1 Mg/Hr Patch TRANSDERM QAM [facility] Ondansetron HCl 4 mg 10/18/24 19:08 Ondansetron Inj 4 Mg/2 Ml Vial IV PUSH Q4H PRN Nausea Scopolamine 1 patch 10/22/24 09:00 Scopolamine 1 Mg Patch TRANSDERM Q72HR [facility] Senna 8.6 mg 10/19/24 09:00 10/21/24 12:14 Sennosides 8.6 Mg Tablet FEED TUBE Not Given BID [facility] Thiamine HCl 100 mg 10/19/24 09:00 10/21/24 10:08 Thiamine Hcl 100 Mg Tablet FEED TUBE Not Given DAILY [facility] Radiology Results: ITS Impressions Abdomen/Pelvis CT 10/18/24 16:48 IMPRESSION: Findings consistent consistent with acute cholecystitis, as detailed above. Malpositioning of the balloon for the percutaneous gastrostomy, as detailed above. Abdomen CT 10/18/24 22:58 IMPRESSION: Findings consistent with (likely) gallstone pancreatitis, as detailed above. Imaging findings are now much clearer after fluid resuscitation. Redemonstration of a percutaneous gastrostomy with its balloon extending to the level of the pylorus, rather than immediately beneath the undersurface of the anterior abdominal wall for which withdrawal of 4.9 cm (with the balloon continuously inflated) is recommended for optimal radiographic placement. Abdomen X-Ray 10/22/24 12:31 IMPRESSION: Decreased air opacification of the colon, when compared with previous days examination. No air is identified within the rectum. Labs Labs: Laboratory Results - last 24 hr 10/21/24 10/22/24 10/22/24 17:40 04:13 06:05 WBC 11.5 H RBC 3.87 L Hgb 12.4 L Hct 38.4 L MCV 99.2 MCH 32.0 MCHC 32.3 RDW 13.4 Plt Count 141 L MPV 12.4 H Immature Gran % (Auto) 0.3 Neut % (Auto) 71.3 Lymph % (Auto) 15.4 L [place] % (Auto) 10.3 H Eos % (Auto) 2.4 Baso % (Auto) 0.3 Lymph # (Auto) 1.76 [place] # (Auto) 1.2 H Eos # (Auto) 0.3 Baso # (Auto) 0.0 Abs Immat Gran (auto) 0.03 Absolute Neuts (auto) 8.2 H Absolute Nucleated RBC 0.000 Nucleated RBC % 0.0 Sodium 137 Potassium 3.5 Chloride 107 Carbon Dioxide 21 L Anion Gap 9 BUN 4 L Creatinine 0.40 L Estim Creat Clear Calc 163 Estimated GFR > 60 Glucose 92 POC Capillary Glucose 102 Calcium 9.2 Magnesium 2.1 Total Bilirubin 0.9 AST 33 ALT 25 Alkaline Phosphatase 84 Total Protein 7.0 Albumin 3.5
[2024-10-22] MEDS: NITROGLYCERIN 0.1 MG/HR PATCH 1 PATCH TRANSDERM (13:15)
[2024-10-22] MEDS: SCOPOLAMINE 1 MG PATCH 1 PATCH TRANSDERM (13:17)
[2024-10-22] MEDS: SODIUM CHLORIDE 0.9% IVPB ×2 (13:22→23:52)
[2024-10-22] MEDS: LACOSAMIDE IVPB ×2 (13:22→23:52)
[2024-10-22] MEDS: VALPROATE SODIUM INJ 500 MG in DEXTROSE 5% IN WATER 50 ML 55 MG IVPB (22:34)
[2024-10-23] VITALS (21 sets, daily range): BP systolic 127–162; BP diastolic 67–81; PULSE 84–103; RESP 18–20; TEMP 36.7–38.1; O2SAT 93–98
[2024-10-23] MEDS: LACTATED RINGERS 1,000 ML 60 ML IV CONT ×2 (05:27→18:12)
[2024-10-23] MEDS: PIPERACILLN/TAZ 3.375GM/NS50ML 3.375 GM/50 ML BAG IVPB ×4 (05:29→18:08)
[2024-10-23] MEDS: HYDROmorphone HCL INJ (*CRX) 2 MG/ML VIAL 0.5 MG IV PUSH (05:30)
[2024-10-23 08:07] LABS: Basophils Percent Auto 0.2 % (0.2-1.2); Eosinophils Absolute Auto 0.4 K/mm3 (0-0.3); Eosinophils Percent Auto 5.1 % (0-4.4); Hematocrit 32.2 % (42.0-52.0); Hemoglobin 10.5 g/dL (14.0-18.0); Immature Granulocyte Absolute 0.02 K/mm3 (0.00-0.031); Immature Granulocyte Percent A 0.2 % (0-0.5); Mean Corpuscular HGB Conc 32.6 g/dl (32-36); Mean Corpuscular Hemoglobin 32.2 pg (26-34); Mean Corpuscular Volume 98.8 fl (80-100); Mean Platelet Volume 12.9 fl (7.4-10.4); Monocytes Absolute Auto 0.9 K/mm3 (0.1-0.6); Neutrophils Percent Auto 61.5 % (45.5-73.1); Platelet Count Result 138 k/mm3 (150-375); Red Blood Count 3.26 M/mm3 (4.6-6.20); Red Cell Distribution Width 13.2 % (11.5-14.5); White Blood Count 8.2 K/mm3 (4.5-10.0)
[2024-10-23 08:14] LABS: Alanine Aminotransferase 21 U/L (6-50); Albumin Level 3.2 g/dL (3.5-5.1); Alkaline Phosphatase 74 U/L (38-126); Anion Gap 7 mmol/L (4-12); Aspartate Amino Transferase 26 U/L (17-59); Bilirubin,Total 0.9 mg/dL (0.2-1.3); Blood Urea Nitrogen 9 mg/dL (9-20); Calcium 8.9 mg/dL (8.4-10.2); Carbon Dioxide 27 mmol/L (22-30); Chloride 107 mmol/L (98-107); Estimated CRCL calculation 119 ml/min; Estimated Glomerular Filt Rate > 60; Glucose 80 mg/dL (65-110); Magnesium 1.8 mg/dL (1.6-2.3); Potassium 3.4 mmol/L (3.4-5.0); Sodium 141 mmol/L (137-145)
[2024-10-23] MEDS: LACOSAMIDE IVPB ×2 (09:20→21:06)
[2024-10-23] MEDS: SODIUM CHLORIDE 0.9% IVPB ×2 (09:20→21:06)
[2024-10-23] MEDS: levETIRAcetam 1000MG/NACL100ML 1,000 MG/100 ML BAG 400 MG IVPB ×4 (09:22→20:41)
[2024-10-23] MEDS: NITROGLYCERIN 0.1 MG/HR PATCH 1 PATCH TRANSDERM (09:23)
[2024-10-23] MEDS: METOPROLOL TARTRATE INJ 5 MG/5 ML VIAL IV PUSH ×2 (09:23→20:41)
--- NOTE | 2024-10-23 09:31 | P.PNGI_ITS ---
Progress Note: A&P Assessment and Plan (1) Acute pancreatitis: Code(s): K85.90 - Acute pancreatitis without necrosis or infection, unspecified Status: Acute Assessment and Plan: The patient is resolving acute pancreatitis, likely secondary to gallstones. However, he is not a suitable candidate for definitive cholecystectomy. Therefore, he is scheduled for a percutaneous cholecystostomy this morning. We've communicated with the on-call hospitalist, requesting Radiology perform a cholangiogram during the procedure to delineate the biliary tree and rule out choledocholithiasis, as an MRCP is technically difficult do to his specific conditions. His pancreatitis is stable. The primary challenge to his nutrition is a pre- existing severe motility disorder, for which he has a history of PEG-PEJ placement. We plan to discuss transferring him to [facility] for specialized, continuous nutritional support. Subjective Date/time seen: 10/23/24 09:31 Interval history: Patient less distended than yesterday. Gastrostomy tube drained 275 cc of dark green contents. KUB showed nonspecific bowel gas pattern, with air in the colon. No evidence of ileus. Electrolyte a liver biochemistry within normal limits. Exam Narrative: Abdomen: Still tympanitic, bowel sounds present, nontender, somewhat distended. Rest of the exam unchange Objective Data Vital Signs Vital Signs: Vital Signs - 24 hr 10/22/24 10:00 10/22/24 12:00 10/22/24 12:00 Temperature 98.9 F Pulse Rate 106 H 110 H 90 Respiratory Rate 26 H Blood Pressure 169/91 H Pulse Oximetry 97 Oxygen Delivery Oxygen Flow Rate Fraction of Inspired Oxygen 10/22/24 14:00 10/22/24 16:00 10/22/24 16:00 Temperature 98.7 F Pulse Rate 103 H 102 H 105 H Respiratory Rate 20 Blood Pressure 134/73 Pulse Oximetry 100 Oxygen Delivery Oxygen Flow Rate Fraction of Inspired Oxygen 10/22/24 18:00 10/22/24 19:21 10/22/24 20:00 Temperature 99.2 F Pulse Rate 110 H 112 H 120 H Respiratory Rate 20 Blood Pressure 138/76 Pulse Oximetry 100 Oxygen Delivery Oxygen Flow Rate Fraction of Inspired Oxygen 10/22/24 20:27 10/22/24 21:48 10/22/24 21:55 Temperature 98.4 F Pulse Rate 111 H 108 H 103 H Respiratory Rate 20 Blood Pressure 146/80 H Pulse Oximetry 95 95 Oxygen Delivery High Flow Therapy with Tr Oxygen Flow Rate 25 Fraction of Inspired Oxygen 10/22/24 22:00 10/23/24 00:00 10/23/24 00:00 Temperature 98.2 F Pulse Rate 104 H 96 97 Respiratory Rate 20 Blood Pressure 127/67 Pulse Oximetry 96 Oxygen Delivery Oxygen Flow Rate Fraction of Inspired Oxygen 10/23/24 02:00 10/23/24 04:00 10/23/24 04:00 Temperature 98.1 F Pulse Rate 93 97 92 Respiratory Rate 20 Blood Pressure 162/75 H Pulse Oximetry 94 Oxygen Delivery Oxygen Flow Rate Fraction of Inspired Oxygen 10/23/24 06:00 10/23/24 08:00 10/23/24 08:12 Temperature 99.2 F Pulse Rate 91 89 Respiratory Rate 20 Blood Pressure 158/81 H Pulse Oximetry 94 95 Oxygen Delivery High Flow Therapy with Tr Oxygen Flow Rate 25 Fraction of Inspired Oxygen 28 10/23/24 09:23 Temperature Pulse Rate 97 Respiratory Rate Blood Pressure Pulse Oximetry Oxygen Delivery Oxygen Flow Rate Fraction of Inspired Oxygen Intake/Output Intake/Output: Intake & Output 10/20/24 10/21/24 10/22/24 10/23/24 23:59 23:59 23:59 23:59 Intake Total 3326.7 2858 1546 1202 Output Total 1850 1550 1400 525 Balance 1476.7 1308 146 677 Meds/Results Medications: Active Medications Generic Name Dose Route Start Last Admin Trade Name Freq PRN Reason Stop Dose Admin Acetaminophen 325 mg 10/21/24 12:12 10/21/24 13:50 Acetaminophen 325 Mg Suppository RECTAL 325 mg Q4H PRN Administration Mild Pain (1-3) or Fever Albuterol/Ipratropium 3 ml 10/19/24 00:22 Ipratropium 0.5 Mg/Albuterol Sulfate 2.5 Mg Ampul.Neb 3 Ml INHALATION Q6HRT PRN Shortness Of Breath Bisacodyl 10 mg 10/19/24 00:22 Bisacodyl 10 Mg Suppository RECTAL DAILY PRN Constipation Clobazam 10 mg 10/19/24 09:00 10/21/24 10:07 Clobazam (*Crx) 10 Mg Tablet FEED TUBE Not Given DAILY [facility] Dextrose 12.5 gm 10/20/24 20:45 Dextrose 50% 25 Gm/50 Ml Syringe IV PUSH PRN PRN Hypoglycemia Protocol Folic Acid 1 mg 10/19/24 09:00 10/21/24 10:07 Folic Acid 1 Mg Tablet FEED TUBE Not Given DAILY [facility] Glucose 15 gm 10/20/24 20:45 Glucose Oral Gel 15 Gm Of Glucse In 37.5 Gm Tube PO PRN PRN Hypoglycemia Protocol Glycopyrrolate 2 mg 10/19/24 00:50 10/21/24 12:14 Glycopyrrolate 1 Mg Tablet FEED TUBE Not Given Q8HR [facility] Hydralazine HCl 10 mg 10/22/24 11:45 Hydralazine Hcl 20 Mg/Ml Vial IV PUSH Q6H PRN Blood Pressure -systolic>160 Hydromorphone HCl 0.5 mg 10/18/24 19:08 10/23/24 05:30 Hydromorphone Hcl Inj (*Crx) 2 Mg/Ml Vial IV PUSH 0.5 mg Q4H PRN Administration Pain Rated 7-10 Piperacillin/Tazobactam/Dextrose 3.375 gm in 50 mls @ 100 mls/hr 10/19/24 01:00 10/23/24 05:59 Zosyn 3.375 Gm/Ns 50 Ml IVPB Infused Q6HR [facility] Infusion Lactated Ringer's 1,000 mls @ 60 mls/hr 10/19/24 00:05 10/23/24 06:45 Lr - Lactated Ringers Iv IV CONT 60 mls/hr .[id number] [facility] Infusion Dextrose 1,000 mls @ 100 mls/hr 10/20/24 20:45 Dextrose 5% 1,000 Ml IVPB PRN PRN Hypoglycemia Protocol Levetiracetam 1,000 mg in 100 mls @ 400 mls/hr 10/21/24 12:46 10/23/24 09:22 Keppra Iv IVPB 400 mls/hr Q12HR [facility] Administration Levetiracetam 1,000 mg in 100 mls @ 400 mls/hr 10/21/24 12:45 10/23/24 09:22 Keppra Iv IVPB 400 mls/hr Q12HR [facility] Administration Lacosamide 250 mg/ Sodium 100 mls @ 200 mls/hr 10/22/24 11:00 10/23/24 09:20 Chloride IVPB 200 mls/hr Q12HR [facility] Administration Lacosamide 200 mg 10/19/24 01:10 10/21/24 12:14 Lacosamide (*Crx) 200 Mg Tablet FEED TUBE Not Given Q12HR [facility] Lacosamide 50 mg 10/20/24 21:00 10/21/24 12:14 Lacosamide (*Crx) 50 Mg Tablet PO Not Given Q12HR [facility] Lorazepam 2 mg 10/19/24 10:34 Lorazepam Inj (*Crx) 2 Mg/Ml Vial IV PUSH Q4HR PRN Seizure Activity Magnesium Hydroxide 30 ml 10/19/24 00:22 Magnesium Hydroxide Susp 30 Ml Udc PO HS PRN Constipation Metoclopramide HCl 10 mg 10/19/24 09:00 Metoclopramide Hcl 10 Mg Tablet FEED TUBE TID [facility] Metoclopramide HCl 5 mg 10/22/24 14:19 Metoclopramide Hcl Inj 10 Mg/2 Ml Vial IV PUSH Q6HR PRN Vomiting Metoprolol Tartrate 25 mg 10/19/24 00:25 10/21/24 10:08 Metoprolol Tartrate 25 Mg Tablet FEED TUBE Not Given Q12HR [facility] Metoprolol Tartrate 5 mg 10/21/24 12:55 10/23/24 09:23 Metoprolol Tartrate Inj 5 Mg/5 Ml Vial IV PUSH 5 mg Q12HR [facility] Administration Nitroglycerin 1 patch 10/22/24 09:55 10/23/24 09:23 Nitroglycerin 0.1 Mg/Hr Patch TRANSDERM 1 patch QAM [facility] Administration Ondansetron HCl 4 mg 10/18/24 19:08 Ondansetron Inj 4 Mg/2 Ml Vial IV PUSH Q4H PRN Nausea Scopolamine 1 patch 10/22/24 09:00 10/22/24 13:17 Scopolamine 1 Mg Patch TRANSDERM 1 patch Q72HR [facility] Administration Senna 8.6 mg 10/19/24 09:00 10/21/24 12:14 Sennosides 8.6 Mg Tablet FEED TUBE Not Given BID [facility] Thiamine HCl 100 mg 10/19/24 09:00 10/21/24 10:08 Thiamine Hcl 100 Mg Tablet FEED TUBE Not Given DAILY [facility] Radiology Results: ITS Impressions Abdomen/Pelvis CT 10/18/24 16:48 IMPRESSION: Findings consistent consistent with acute cholecystitis, as detailed above. Malpositioning of the balloon for the percutaneous gastrostomy, as detailed above. Abdomen CT 10/18/24 22:58 IMPRESSION: Findings consistent with (likely) gallstone pancreatitis, as detailed above. Imaging findings are now much clearer after fluid resuscitation. Redemonstration of a percutaneous gastrostomy with its balloon extending to the level of the pylorus, rather than immediately beneath the undersurface of the anterior abdominal wall for which withdrawal of 4.9 cm (with the balloon continuously inflated) is recommended for optimal radiographic placement. Abdomen X-Ray 10/22/24 12:31 IMPRESSION: Decreased air opacification of the colon, when compared with previous days examination. No air is identified within the rectum. Labs Labs: Laboratory Results - last 24 hr 10/23/24 07:51 WBC 8.2 RBC 3.26 L Hgb 10.5 L Hct 32.2 L MCV 98.8 MCH 32.2 MCHC 32.6 RDW 13.2 Plt Count 138 L MPV 12.9 H Immature Gran % (Auto) 0.2 Neut % (Auto) 61.5 Lymph % (Auto) 22.0 [place] % (Auto) 11.0 H Eos % (Auto) 5.1 H Baso % (Auto) 0.2 Lymph # (Auto) 1.80 [place] # (Auto) 0.9 H Eos # (Auto) 0.4 H Baso # (Auto) 0.0 Abs Immat Gran (auto) 0.02 Absolute Neuts (auto) 5.0 Absolute Nucleated RBC 0.000 Nucleated RBC % 0.0 Sodium 141 Potassium 3.4 Chloride 107 Carbon Dioxide 27 Anion Gap 7 BUN 9 D Creatinine 0.57 L Estim Creat Clear Calc 119 Estimated GFR > 60 Glucose 80 Calcium 8.9 Magnesium 1.8 Total Bilirubin 0.9 AST 26 ALT 21 Alkaline Phosphatase 74 Total Protein 7.0 Albumin 3.2 L
--- NOTE | 2024-10-23 09:53 | P.PNGI_ITS ---
Progress Note: A&P Assessment and Plan (1) Acute pancreatitis: Code(s): K85.90 - Acute pancreatitis without necrosis or infection, unspecified Status: Acute Assessment and Plan: An ultrasound-guided pigtail cholecystostomy tube will be placed today. Although contrast injection through such catheters is generally safe per literature, a cholangiogram will not be performed at this time. This is because the [id number] tract requires maturation, a process that typically spans 2 to 3 weeks, to ensure stability before injection. Subjective Date/time seen: 10/23/24 09:53 Objective Data Vital Signs Vital Signs: Vital Signs - 24 hr 10/22/24 10:00 10/22/24 12:00 10/22/24 12:00 Temperature 98.9 F Pulse Rate 106 H 110 H 90 Respiratory Rate 26 H Blood Pressure 169/91 H Pulse Oximetry 97 Oxygen Delivery Oxygen Flow Rate Fraction of Inspired Oxygen 10/22/24 14:00 10/22/24 16:00 10/22/24 16:00 Temperature 98.7 F Pulse Rate 103 H 102 H 105 H Respiratory Rate 20 Blood Pressure 134/73 Pulse Oximetry 100 Oxygen Delivery Oxygen Flow Rate Fraction of Inspired Oxygen 10/22/24 18:00 10/22/24 19:21 10/22/24 20:00 Temperature 99.2 F Pulse Rate 110 H 112 H 120 H Respiratory Rate 20 Blood Pressure 138/76 Pulse Oximetry 100 Oxygen Delivery Oxygen Flow Rate Fraction of Inspired Oxygen 10/22/24 20:27 10/22/24 21:48 10/22/24 21:55 Temperature 98.4 F Pulse Rate 111 H 108 H 103 H Respiratory Rate 20 Blood Pressure 146/80 H Pulse Oximetry 95 95 Oxygen Delivery High Flow Therapy with Tr Oxygen Flow Rate 25 Fraction of Inspired Oxygen 28 10/22/24 22:00 10/23/24 00:00 10/23/24 00:00 Temperature 98.2 F Pulse Rate 104 H 96 97 Respiratory Rate 20 Blood Pressure 127/67 Pulse Oximetry 96 Oxygen Delivery Oxygen Flow Rate Fraction of Inspired Oxygen 10/23/24 02:00 10/23/24 04:00 10/23/24 04:00 Temperature 98.1 F Pulse Rate 93 97 92 Respiratory Rate 20 Blood Pressure 162/75 H Pulse Oximetry 94 Oxygen Delivery Oxygen Flow Rate Fraction of Inspired Oxygen 10/23/24 06:00 10/23/24 08:00 10/23/24 08:12 Temperature 99.2 F Pulse Rate 91 89 Respiratory Rate 20 Blood Pressure 158/81 H Pulse Oximetry 94 95 Oxygen Delivery High Flow Therapy with Tr Oxygen Flow Rate 25 Fraction of Inspired Oxygen 10/23/24 09:23 Temperature Pulse Rate 97 Respiratory Rate Blood Pressure Pulse Oximetry Oxygen Delivery Oxygen Flow Rate Fraction of Inspired Oxygen Intake/Output Intake/Output: Intake & Output 10/20/24 10/21/24 10/22/24 10/23/24 23:59 23:59 23:59 23:59 Intake Total 3326.7 2858 1546 1202 Output Total 1850 1550 1400 525 Balance 1476.7 1308 146 677 Meds/Results Medications: Active Medications Generic Name Dose Route Start Last Admin Trade Name Freq PRN Reason Stop Dose Admin Acetaminophen 325 mg 10/21/24 12:12 10/21/24 13:50 Acetaminophen 325 Mg Suppository RECTAL 325 mg Q4H PRN Administration Mild Pain (1-3) or Fever Albuterol/Ipratropium 3 ml 10/19/24 00:22 Ipratropium 0.5 Mg/Albuterol Sulfate 2.5 Mg Ampul.Neb 3 Ml INHALATION Q6HRT PRN Shortness Of Breath Bisacodyl 10 mg 10/19/24 00:22 Bisacodyl 10 Mg Suppository RECTAL DAILY PRN Constipation Clobazam 10 mg 10/19/24 09:00 10/21/24 10:07 Clobazam (*Crx) 10 Mg Tablet FEED TUBE Not Given DAILY TERRELL Dextrose 12.5 gm 10/20/24 20:45 Dextrose 50% 25 Gm/50 Ml Syringe IV PUSH PRN PRN Hypoglycemia Protocol Folic Acid 1 mg 10/19/24 09:00 10/21/24 10:07 Folic Acid 1 Mg Tablet FEED TUBE Not Given DAILY TERRELL Glucose 15 gm 10/20/24 20:45 Glucose Oral Gel 15 Gm Of Glucse In 37.5 Gm Tube PO PRN PRN Hypoglycemia Protocol Glycopyrrolate 2 mg 10/19/24 00:50 10/21/24 12:14 Glycopyrrolate 1 Mg Tablet FEED TUBE Not Given Q8HR TERRELL Hydralazine HCl 10 mg 10/22/24 11:45 Hydralazine Hcl 20 Mg/Ml Vial IV PUSH Q6H PRN Blood Pressure -systolic>160 Hydromorphone HCl 0.5 mg 10/18/24 19:08 10/23/24 05:30 Hydromorphone Hcl Inj (*Crx) 2 Mg/Ml Vial IV PUSH 0.5 mg Q4H PRN Administration Pain Rated 7-10 Piperacillin/Tazobactam/Dextrose 3.375 gm in 50 mls @ 100 mls/hr 10/19/24 01:00 10/23/24 05:59 Zosyn 3.375 Gm/Ns 50 Ml IVPB Infused Q6HR TERRELL Infusion Lactated Ringer's 1,000 mls @ 60 mls/hr 10/19/24 00:05 10/23/24 06:45 Lr - Lactated Ringers Iv IV CONT 60 mls/hr .[id number] TERRELL Infusion Dextrose 1,000 mls @ 100 mls/hr 10/20/24 20:45 Dextrose 5% 1,000 Ml IVPB PRN PRN Hypoglycemia Protocol Levetiracetam 1,000 mg in 100 mls @ 400 mls/hr 10/21/24 12:46 10/23/24 09:22 Keppra Iv IVPB 400 mls/hr Q12HR TERRELL Administration Levetiracetam 1,000 mg in 100 mls @ 400 mls/hr 10/21/24 12:45 10/23/24 09:22 Keppra Iv IVPB 400 mls/hr Q12HR TERRELL Administration Lacosamide 250 mg/ Sodium 100 mls @ 200 mls/hr 10/22/24 11:00 10/23/24 09:20 Chloride IVPB 200 mls/hr Q12HR TERRELL Administration Lacosamide 200 mg 10/19/24 01:10 10/21/24 12:14 Lacosamide (*Crx) 200 Mg Tablet FEED TUBE Not Given Q12HR TERRELL Lacosamide 50 mg 10/20/24 21:00 10/21/24 12:14 Lacosamide (*Crx) 50 Mg Tablet PO Not Given Q12HR TERRELL Lorazepam 2 mg 10/19/24 10:34 Lorazepam Inj (*Crx) 2 Mg/Ml Vial IV PUSH Q4HR PRN Seizure Activity Magnesium Hydroxide 30 ml 10/19/24 00:22 Magnesium Hydroxide Susp 30 Ml Udc PO HS PRN Constipation Metoclopramide HCl 10 mg 10/19/24 09:00 Metoclopramide Hcl 10 Mg Tablet FEED TUBE TID TERRELL Metoclopramide HCl 5 mg 10/22/24 14:19 Metoclopramide Hcl Inj 10 Mg/2 Ml Vial IV PUSH Q6HR PRN Vomiting Metoprolol Tartrate 25 mg 10/19/24 00:25 10/21/24 10:08 Metoprolol Tartrate 25 Mg Tablet FEED TUBE Not Given Q12HR TERRELL Metoprolol Tartrate 5 mg 10/21/24 12:55 10/23/24 09:23 Metoprolol Tartrate Inj 5 Mg/5 Ml Vial IV PUSH 5 mg Q12HR TERRELL Administration Nitroglycerin 1 patch 10/22/24 09:55 10/23/24 09:23 Nitroglycerin 0.1 Mg/Hr Patch TRANSDERM 1 patch QAM TERRELL Administration Ondansetron HCl 4 mg 10/18/24 19:08 Ondansetron Inj 4 Mg/2 Ml Vial IV PUSH Q4H PRN Nausea Scopolamine 1 patch 10/22/24 09:00 10/22/24 13:17 Scopolamine 1 Mg Patch TRANSDERM 1 patch Q72HR TERRELL Administration Senna 8.6 mg 10/19/24 09:00 10/21/24 12:14 Sennosides 8.6 Mg Tablet FEED TUBE Not Given BID TERRELL Thiamine HCl 100 mg 10/19/24 09:00 10/21/24 10:08 Thiamine Hcl 100 Mg Tablet FEED TUBE Not Given DAILY TERRELL Radiology Results: ITS Impressions Abdomen/Pelvis CT 10/18/24 16:48 IMPRESSION: Findings consistent consistent with acute cholecystitis, as detailed above. Malpositioning of the balloon for the percutaneous gastrostomy, as detailed above. Abdomen CT 10/18/24 22:58 IMPRESSION: Findings consistent with (likely) gallstone pancreatitis, as detailed above. Imaging findings are now much clearer after fluid resuscitation. Redemonstration of a percutaneous gastrostomy with its balloon extending to the level of the pylorus, rather than immediately beneath the undersurface of the anterior abdominal wall for which withdrawal of 4.9 cm (with the balloon continuously inflated) is recommended for optimal radiographic placement. Abdomen X-Ray 10/22/24 12:31 IMPRESSION: Decreased air opacification of the colon, when compared with previous days examination. No air is identified within the rectum. Labs Labs: Laboratory Results - last 24 hr 10/23/24 07:51 WBC 8.2 RBC 3.26 L Hgb 10.5 L Hct 32.2 L MCV 98.8 MCH 32.2 MCHC 32.6 RDW 13.2 Plt Count 138 L MPV 12.9 H Immature Gran % (Auto) 0.2 Neut % (Auto) 61.5 Lymph % (Auto) 22.0 [place] % (Auto) 11.0 H Eos % (Auto) 5.1 H Baso % (Auto) 0.2 Lymph # (Auto) 1.80 [place] # (Auto) 0.9 H Eos # (Auto) 0.4 H Baso # (Auto) 0.0 Abs Immat Gran (auto) 0.02 Absolute Neuts (auto) 5.0 Absolute Nucleated RBC 0.000 Nucleated RBC % 0.0 Sodium 141 Potassium 3.4 Chloride 107 Carbon Dioxide 27 Anion Gap 7 BUN 9 D Creatinine 0.57 L Estim Creat Clear Calc 119 Estimated GFR > 60 Glucose 80 Calcium 8.9 Magnesium 1.8 Total Bilirubin 0.9 AST 26 ALT 21 Alkaline Phosphatase 74 Total Protein 7.0 Albumin 3.2 L
[2024-10-23 10:10] LABS: INR 1.2; Prothrombin Time 15.3 Seconds (11.1-14.7)
[2024-10-23 10:11] LABS: Partial Thromboplastin Time 38.5 Seconds (22.3-36.8)
--- NOTE | 2024-10-23 11:51 | P.PNGS_ITS ---
Progress Note: A&P Assessment and Plan (1) Cholecystitis: Code(s): K81.9 - Cholecystitis, unspecified Status: Acute Assessment and Plan: * Continue broad spectrum IV antibiotics. Overall not a good surgical can didate. * Will proceed with ultrasound-guided percutaneous cholecystostomy tube placement hopefully today or tomorrow depending on IR schedule. (2) Acute pancreatitis: Code(s): K85.90 - Acute pancreatitis without necrosis or infection, unspecified Status: Acute (3) Severe sepsis: Code(s): A41.9 - Sepsis, unspecified organism; R65.20 - Severe sepsis without septic shock Status: Acute (4) Chronic hypoxemic respiratory failure: Code(s): J96.11 - Chronic respiratory failure with hypoxia Status: Chronic (5) Epilepsy: Code(s): G40.909 - Epilepsy, unspecified, not intractable, without status epilepticus Status: Acute (6) Cerebrovascular accident: Code(s): I63.9 - Cerebral infarction, unspecified Status: Chronic Subjective Subjective Date/Time Seen: 10/23/24 11:51 Interval history: No abdominal pain today. Not hungry. Exam GI: Inspection: non-distended GI Palp: Yes Soft to palpation, No Tenderness to palpation present (GI), No Guarding due to palpation present (GI) and No Rebound tenderness present Objective Data Vital Signs Vital Signs: Vital Signs - 24 hr 10/22/24 12:00 10/22/24 12:00 10/22/24 14:00 Temperature 98.9 F Pulse Rate 110 H 90 103 H Respiratory Rate 26 H Blood Pressure 169/91 H Pulse Oximetry 97 Oxygen Delivery Oxygen Flow Rate Fraction of Inspired Oxygen 10/22/24 16:00 10/22/24 16:00 10/22/24 18:00 Temperature 98.7 F Pulse Rate 102 H 105 H 110 H Respiratory Rate 20 Blood Pressure 134/73 Pulse Oximetry 100 Oxygen Delivery Oxygen Flow Rate Fraction of Inspired Oxygen 10/22/24 19:21 10/22/24 20:00 10/22/24 20:27 Temperature 99.2 F Pulse Rate 112 H 120 H 111 H Respiratory Rate 20 Blood Pressure 138/76 Pulse Oximetry 100 95 Oxygen Delivery High Flow Therapy with Tr Oxygen Flow Rate 25 Fraction of Inspired Oxygen 28 10/22/24 21:48 10/22/24 21:55 10/22/24 22:00 Temperature 98.4 F Pulse Rate 108 H 103 H 104 H Respiratory Rate 20 Blood Pressure 146/80 H Pulse Oximetry 95 Oxygen Delivery Oxygen Flow Rate Fraction of Inspired Oxygen 10/23/24 00:00 10/23/24 00:00 10/23/24 02:00 Temperature 98.2 F Pulse Rate 96 97 93 Respiratory Rate 20 Blood Pressure 127/67 Pulse Oximetry 96 Oxygen Delivery Oxygen Flow Rate Fraction of Inspired Oxygen 10/23/24 04:00 10/23/24 04:00 10/23/24 06:00 Temperature 98.1 F Pulse Rate 97 92 91 Respiratory Rate 20 Blood Pressure 162/75 H Pulse Oximetry 94 Oxygen Delivery Oxygen Flow Rate Fraction of Inspired Oxygen 10/23/24 08:00 10/23/24 08:12 10/23/24 09:23 Temperature 99.2 F Pulse Rate 89 97 Respiratory Rate 20 Blood Pressure 158/81 H Pulse Oximetry 94 95 Oxygen Delivery High Flow Therapy with Tr Oxygen Flow Rate 25 Fraction of Inspired Oxygen 28 10/23/24 11:28 Temperature 99.7 F H Pulse Rate 87 Respiratory Rate 18 Blood Pressure 156/77 H Pulse Oximetry 93 Oxygen Delivery Oxygen Flow Rate Fraction of Inspired Oxygen Intake/Output Intake/Output: Intake & Output 10/20/24 10/21/24 10/22/24 10/23/24 23:59 23:59 23:59 23:59 Intake Total 3326.7 2858 1546 1502 Output Total 1850 1550 1400 525 Balance 1476.7 1308 146 977 Meds/Results Medications: Active Medications Generic Name Dose Route Start Last Admin Trade Name Freq PRN Reason Stop Dose Admin Acetaminophen 325 mg 10/21/24 12:12 10/21/24 13:50 Acetaminophen 325 Mg Suppository RECTAL 325 mg Q4H PRN Administration Mild Pain (1-3) or Fever Albuterol/Ipratropium 3 ml 10/19/24 00:22 Ipratropium 0.5 Mg/Albuterol Sulfate 2.5 Mg Ampul.Neb 3 Ml INHALATION Q6HRT PRN Shortness Of Breath Bisacodyl 10 mg 10/19/24 00:22 Bisacodyl 10 Mg Suppository RECTAL DAILY PRN Constipation Clobazam 10 mg 10/19/24 09:00 10/21/24 10:07 Clobazam (*Crx) 10 Mg Tablet FEED TUBE Not Given DAILY TERRELL Dextrose 12.5 gm 10/20/24 20:45 Dextrose 50% 25 Gm/50 Ml Syringe IV PUSH PRN PRN Hypoglycemia Protocol Folic Acid 1 mg 10/19/24 09:00 10/21/24 10:07 Folic Acid 1 Mg Tablet FEED TUBE Not Given DAILY TERRELL Glucose 15 gm 10/20/24 20:45 Glucose Oral Gel 15 Gm Of Glucse In 37.5 Gm Tube PO PRN PRN Hypoglycemia Protocol Glycopyrrolate 2 mg 10/19/24 00:50 10/21/24 12:14 Glycopyrrolate 1 Mg Tablet FEED TUBE Not Given Q8HR TERRELL Hydralazine HCl 10 mg 10/22/24 11:45 Hydralazine Hcl 20 Mg/Ml Vial IV PUSH Q6H PRN Blood Pressure -systolic>160 Hydromorphone HCl 0.5 mg 10/18/24 19:08 10/23/24 05:30 Hydromorphone Hcl Inj (*Crx) 2 Mg/Ml Vial IV PUSH 0.5 mg Q4H PRN Administration Pain Rated 7-10 Piperacillin/Tazobactam/Dextrose 3.375 gm in 50 mls @ 100 mls/hr 10/19/24 01:00 10/23/24 05:59 Zosyn 3.375 Gm/Ns 50 Ml IVPB Infused Q6HR TERRELL Infusion Lactated Ringer's 1,000 mls @ 60 mls/hr 10/19/24 00:05 10/23/24 06:45 Lr - Lactated Ringers Iv IV CONT 60 mls/hr .[id number] TERRELL Infusion Dextrose 1,000 mls @ 100 mls/hr 10/20/24 20:45 Dextrose 5% 1,000 Ml IVPB PRN PRN Hypoglycemia Protocol Levetiracetam 1,000 mg in 100 mls @ 400 mls/hr 10/21/24 12:46 10/23/24 09:40 Keppra Iv IVPB Infused Q12HR TERRELL Infusion Levetiracetam 1,000 mg in 100 mls @ 400 mls/hr 10/21/24 12:45 10/23/24 10:30 Keppra Iv IVPB Infused Q12HR TERRELL Infusion Lacosamide 250 mg/ Sodium 100 mls @ 200 mls/hr 10/22/24 11:00 10/23/24 10:26 Chloride IVPB Infused Q12HR [facility] Infusion Lacosamide 200 mg 10/19/24 01:10 10/21/24 12:14 Lacosamide (*Crx) 200 Mg Tablet FEED TUBE Not Given Q12HR [facility] Lacosamide 50 mg 10/20/24 21:00 10/21/24 12:14 Lacosamide (*Crx) 50 Mg Tablet PO Not Given Q12HR [facility] Lorazepam 2 mg 10/19/24 10:34 Lorazepam Inj (*Crx) 2 Mg/Ml Vial IV PUSH Q4HR PRN Seizure Activity Magnesium Hydroxide 30 ml 10/19/24 00:22 Magnesium Hydroxide Susp 30 Ml Udc PO HS PRN Constipation Metoclopramide HCl 10 mg 10/19/24 09:00 Metoclopramide Hcl 10 Mg Tablet FEED TUBE TID [facility] Metoclopramide HCl 5 mg 10/22/24 14:19 Metoclopramide Hcl Inj 10 Mg/2 Ml Vial IV PUSH Q6HR PRN Vomiting Metoprolol Tartrate 25 mg 10/19/24 00:25 10/21/24 10:08 Metoprolol Tartrate 25 Mg Tablet FEED TUBE Not Given Q12HR [facility] Metoprolol Tartrate 5 mg 10/21/24 12:55 10/23/24 09:23 Metoprolol Tartrate Inj 5 Mg/5 Ml Vial IV PUSH 5 mg Q12HR [facility] Administration Nitroglycerin 1 patch 10/22/24 09:55 10/23/24 09:23 Nitroglycerin 0.1 Mg/Hr Patch TRANSDERM 1 patch QAM [facility] Administration Ondansetron HCl 4 mg 10/18/24 19:08 Ondansetron Inj 4 Mg/2 Ml Vial IV PUSH Q4H PRN Nausea Scopolamine 1 patch 10/22/24 09:00 10/22/24 13:17 Scopolamine 1 Mg Patch TRANSDERM 1 patch Q72HR [facility] Administration Senna 8.6 mg 10/19/24 09:00 10/21/24 12:14 Sennosides 8.6 Mg Tablet FEED TUBE Not Given BID [facility] Thiamine HCl 100 mg 10/19/24 09:00 10/21/24 10:08 Thiamine Hcl 100 Mg Tablet FEED TUBE Not Given DAILY [facility] Radiology Results: ITS Impressions Abdomen CT 10/18/24 22:58 IMPRESSION: Findings consistent with (likely) gallstone pancreatitis, as detailed above. Imaging findings are now much clearer after fluid resuscitation. Redemonstration of a percutaneous gastrostomy with its balloon extending to the level of the pylorus, rather than immediately beneath the undersurface of the anterior abdominal wall for which withdrawal of 4.9 cm (with the balloon continuously inflated) is recommended for optimal radiographic placement. Abdomen X-Ray 10/22/24 12:31 IMPRESSION: Decreased air opacification of the colon, when compared with previous days examination. No air is identified within the rectum. Labs Labs: Laboratory Results - last 24 hr 10/23/24 10/23/24 07:51 09:45 WBC 8.2 RBC 3.26 L Hgb 10.5 L Hct 32.2 L MCV 98.8 MCH 32.2 MCHC 32.6 RDW 13.2 Plt Count 138 L MPV 12.9 H Immature Gran % (Auto) 0.2 Neut % (Auto) 61.5 Lymph % (Auto) 22.0 [place] % (Auto) 11.0 H Eos % (Auto) 5.1 H Baso % (Auto) 0.2 Lymph # (Auto) 1.80 [place] # (Auto) 0.9 H Eos # (Auto) 0.4 H Baso # (Auto) 0.0 Abs Immat Gran (auto) 0.02 Absolute Neuts (auto) 5.0 Absolute Nucleated RBC 0.000 Nucleated RBC % 0.0 PT 15.3 H INR 1.2 APTT 38.5 H Sodium 141 Potassium 3.4 Chloride 107 Carbon Dioxide 27 Anion Gap 7 BUN 9 D Creatinine 0.57 L Estim Creat Clear Calc 119 Estimated GFR > 60 Glucose 80 Calcium 8.9 Magnesium 1.8 Total Bilirubin 0.9 AST 26 ALT 21 Alkaline Phosphatase 74 Total Protein 7.0 Albumin 3.2 L
--- NOTE | 2024-10-23 12:02 | PCNFU ---
Nutrition Follow-Up Complete: Inadequate enteral nutrition intake related to cholecystitis, pancreatitis as evidenced by NPO status/tube feeds on hold Goal:Meet estimated nutritional needs when medically able Pt current nutrition is NPO, tube feeds on hold. Nutrition recommendation: resume tube feeds when appropriate Last recorded weight is 75.5 kg. Bowel Motility: +BM 10/21 Labs Reviewed: Hgb:10.5, HCT:32.2, Alb:3.2, Cr:0.57 Meds Noted: lactated ringers, folic acid, reglan Skin: WNL Additional Notes: Pt with a tube feed, on hold at this time due to nausea and vomiting. SC tube feed orders for Jevity 1.5 @ 50ml/hr (over 22hrs) with 250ml flushes q 6 hrs. This totals 1650kcals, 70g protein, 1836ml free water over 24hrs. Recommend to resume tube feeding when appropriate Monitoring weights, labs, output, orders Follow up Tuesday/Tuesday
--- NOTE | 2024-10-23 17:55 | P.PNIM_ITS ---
Progress Note: A&P Assessment and Plan (1) Cholecystitis: Code(s): K81.9 - Cholecystitis, unspecified Status: Acute Assessment and Plan: -Nausea, vomiting, abdominal distension -CT findings of markedly distended gallbladder with layering stones and surrounding free fluid -Lipase highly elevated raising concern for choledocholithiasis with acute pancreatitis -IV Zosyn started in ER -NPO status (except vital medications) -PRN pain and nausea medication -GI and General Surgery consulted by ER provider -MRCP ordered for tomorrow -Hold Eliqusalas SCDs for VTE prophylaxis -Morning labs ordered -IV fluids given for elevated lipase and highly elevated lactic acid -Ordered STAT procalcitonin, ESR, CRP with daily recheck x3 -Awaiting cholecystostomy tube placement per Gen surgery (2) Severe sepsis: Code(s): A41.9 - Sepsis, unspecified organism; R65.20 - Severe sepsis without septic shock Status: Acute Assessment and Plan: Due to cholecystitis, see above (3) Pancreatitis: Code(s): K85.90 - Acute pancreatitis without necrosis or infection, unspecified Status: Acute Assessment and Plan: See above, concern for choledocholithiasis (4) Malfunction of gastrostomy tube: Code(s): K94.23 - Gastrostomy malfunction Status: Acute Assessment and Plan: -CT abdomen pelvis showed G-tube malpositioned too deep within the stomach -This was pulled back by ER provider -Current NPO status (except vital medications) due to acute cholecystitis and pancreatitis (5) History of multiple strokes: Code(s): Z86.73 - Personal history of transient ischemic attack (TIA), and cerebral infarction without residual deficits Status: Chronic Assessment and Plan: -Non-verbal with trach and G-tube chronically due to prior CVAs with significant residual deficits (6) Epilepsy: Code(s): G40.909 - Epilepsy, unspecified, not intractable, without status epilepticus Status: Acute Assessment and Plan: -History of epilepsy, on multiple medications which will be continued Dose adjustment will be done as per neurologist request. Will taper Depakote from t.i.d. to b.i.d. to once a day and will be totally discontinued from Tuesday. Vimpat will be increased from 200 mg p.o. b.i.d. to 250 mg p.o. b.i.d.. And Keppra will be increased from 17 50 mg p.o. b.i.d. to 2 g p.o. b.i .d. (7) Acute lactic acidosis: Code(s): E87.21 - Acute metabolic acidosis Status: Acute Assessment and Plan: -Likely due to severe sepsis related to acute cholecystitis -Improvement on recheck after additional IV fluids -May rise again by morning after seizure -Patient profoundly dehydrated upon arrival to ER. Subjective Date/time seen: 10/23/24 17:55 Interval history: Comfortable at bedside Review of Systems Review of Systems: ROS unobtainable: Yes unobtainable due to mental status Exam Narrative: GENERAL: Chronically ill-appearing, well-nourished, and in no acute distress. HEAD: Normocephalic, atraumatic. EYES: PERRL and EOMI. NECK: Supple. Tracheostomy with no significant plugging of the tube. CHEST: Clear to auscultation. No respiratory distress. HEART: Regular rate and rhythm. Normal peripheral pulses. ABDOMEN: Mildly distended abdomen without significant tenderness. Peg site appears normal. Normal bowel sounds. EXTREMITIES: Right lower extremity in cushion boot. Left AKA. NEURO: Awake, alert, and at neurologic baseline. Objective Data Vital Signs Vital Signs: Vital Signs - 24 hr 10/22/24 18:00 10/22/24 19:21 10/22/24 20:00 Temperature 99.2 F Pulse Rate 110 H 112 H 120 H Respiratory Rate 20 Blood Pressure 138/76 Pulse Oximetry 100 Oxygen Delivery Oxygen Flow Rate Fraction of Inspired Oxygen 10/22/24 20:27 10/22/24 21:48 10/22/24 21:55 Temperature 98.4 F Pulse Rate 111 H 108 H 103 H Respiratory Rate 20 Blood Pressure 146/80 H Pulse Oximetry 95 95 Oxygen Delivery High Flow Therapy with Tr Oxygen Flow Rate 25 Fraction of Inspired Oxygen 10/22/24 22:00 10/23/24 00:00 10/23/24 00:00 Temperature 98.2 F Pulse Rate 104 H 96 97 Respiratory Rate 20 Blood Pressure 127/67 Pulse Oximetry 96 Oxygen Delivery Oxygen Flow Rate Fraction of Inspired Oxygen 10/23/24 02:00 10/23/24 04:00 10/23/24 04:00 Temperature 98.1 F Pulse Rate 93 97 92 Respiratory Rate 20 Blood Pressure 162/75 H Pulse Oximetry 94 Oxygen Delivery Oxygen Flow Rate Fraction of Inspired Oxygen 10/23/24 06:00 10/23/24 08:00 10/23/24 08:00 Temperature 99.2 F Pulse Rate 91 89 89 Respiratory Rate 20 Blood Pressure 158/81 H Pulse Oximetry 94 Oxygen Delivery Oxygen Flow Rate Fraction of Inspired Oxygen 10/23/24 08:00 10/23/24 08:12 10/23/24 09:23 Temperature Pulse Rate 97 Respiratory Rate Blood Pressure Pulse Oximetry 96 95 Oxygen Delivery High Flow Therapy with Tr High Flow Therapy with Tr Oxygen Flow Rate 25 25 Fraction of Inspired Oxygen 29 10/23/24 10:00 10/23/24 11:28 10/23/24 12:00 Temperature 99.7 F H Pulse Rate 84 87 88 Respiratory Rate 18 Blood Pressure 156/77 H Pulse Oximetry 93 Oxygen Delivery Oxygen Flow Rate Fraction of Inspired Oxygen 10/23/24 12:00 10/23/24 14:00 10/23/24 14:58 Temperature Pulse Rate 94 Respiratory Rate Blood Pressure Pulse Oximetry 96 95 Oxygen Delivery High Flow Therapy with Tr High Flow Therapy with Tr Oxygen Flow Rate 25 25 Fraction of Inspired Oxygen 29 10/23/24 16:00 Temperature 99.7 F H Pulse Rate 91 Respiratory Rate 18 Blood Pressure 141/76 H Pulse Oximetry 96 Oxygen Delivery Oxygen Flow Rate Fraction of Inspired Oxygen Intake/Output Intake/Output: Intake & Output 10/20/24 10/21/24 10/22/24 10/23/24 23:59 23:59 23:59 23:59 Intake Total 3326.7 2858 1546 1502 Output Total 1850 1550 1400 975 Balance 1476.7 1308 146 527 Meds/Results Medications: Active Medications Generic Name Dose Route Start Last Admin Trade Name Freq PRN Reason Stop Dose Admin Acetaminophen 325 mg 10/21/24 12:12 10/21/24 13:50 Acetaminophen 325 Mg Suppository RECTAL 325 mg Q4H PRN Administration Mild Pain (1-3) or Fever Albuterol/Ipratropium 3 ml 10/19/24 00:22 Ipratropium 0.5 Mg/Albuterol Sulfate 2.5 Mg Ampul.Neb 3 Ml INHALATION Q6HRT PRN Shortness Of Breath Bisacodyl 10 mg 10/19/24 00:22 Bisacodyl 10 Mg Suppository RECTAL DAILY PRN Constipation Clobazam 10 mg 10/19/24 09:00 10/21/24 10:07 Clobazam (*Crx) 10 Mg Tablet FEED TUBE Not Given DAILY [facility] Dextrose 12.5 gm 10/20/24 20:45 Dextrose 50% 25 Gm/50 Ml Syringe IV PUSH PRN PRN Hypoglycemia Protocol Folic Acid 1 mg 10/19/24 09:00 10/21/24 10:07 Folic Acid 1 Mg Tablet FEED TUBE Not Given DAILY [facility] Glucose 15 gm 10/20/24 20:45 Glucose Oral Gel 15 Gm Of Glucse In 37.5 Gm Tube PO PRN PRN Hypoglycemia Protocol Glycopyrrolate 2 mg 10/19/24 00:50 10/21/24 12:14 Glycopyrrolate 1 Mg Tablet FEED TUBE Not Given Q8HR [facility] Hydralazine HCl 10 mg 10/22/24 11:45 Hydralazine Hcl 20 Mg/Ml Vial IV PUSH Q6H PRN Blood Pressure -systolic>160 Hydromorphone HCl 0.5 mg 10/18/24 19:08 10/23/24 05:30 Hydromorphone Hcl Inj (*Crx) 2 Mg/Ml Vial IV PUSH 0.5 mg Q4H PRN Administration Pain Rated 7-10 Piperacillin/Tazobactam/Dextrose 3.375 gm in 50 mls @ 100 mls/hr 10/19/24 01:00 10/23/24 12:41 Zosyn 3.375 Gm/Ns 50 Ml IVPB 100 mls/hr Q6HR [facility] Administration Lactated Ringer's 1,000 mls @ 60 mls/hr 10/19/24 00:05 10/23/24 06:45 Lr - Lactated Ringers Iv IV CONT 60 mls/hr .[id number] [facility] Infusion Dextrose 1,000 mls @ 100 mls/hr 10/20/24 20:45 Dextrose 5% 1,000 Ml IVPB PRN PRN Hypoglycemia Protocol Levetiracetam 1,000 mg in 100 mls @ 400 mls/hr 10/21/24 12:46 10/23/24 09:40 Keppra Iv IVPB Infused Q12HR [facility] Infusion Levetiracetam 1,000 mg in 100 mls @ 400 mls/hr 10/21/24 12:45 10/23/24 10:30 Keppra Iv IVPB Infused Q12HR [facility] Infusion Lacosamide 250 mg/ Sodium 100 mls @ 200 mls/hr 10/22/24 11:00 10/23/24 10:26 Chloride IVPB Infused Q12HR [facility] Infusion Lacosamide 200 mg 10/19/24 01:10 10/21/24 12:14 Lacosamide (*Crx) 200 Mg Tablet FEED TUBE Not Given Q12HR [facility] Lacosamide 50 mg 10/20/24 21:00 10/21/24 12:14 Lacosamide (*Crx) 50 Mg Tablet PO Not Given Q12HR [facility] Lorazepam 2 mg 10/19/24 10:34 Lorazepam Inj (*Crx) 2 Mg/Ml Vial IV PUSH Q4HR PRN Seizure Activity Magnesium Hydroxide 30 ml 10/19/24 00:22 Magnesium Hydroxide Susp 30 Ml Udc PO HS PRN Constipation Metoclopramide HCl 10 mg 10/19/24 09:00 Metoclopramide Hcl 10 Mg Tablet FEED TUBE TID [facility] Metoclopramide HCl 5 mg 10/22/24 14:19 Metoclopramide Hcl Inj 10 Mg/2 Ml Vial IV PUSH Q6HR PRN Vomiting Metoprolol Tartrate 25 mg 10/19/24 00:25 10/21/24 10:08 Metoprolol Tartrate 25 Mg Tablet FEED TUBE Not Given Q12HR [facility] Metoprolol Tartrate 5 mg 10/21/24 12:55 10/23/24 09:23 Metoprolol Tartrate Inj 5 Mg/5 Ml Vial IV PUSH 5 mg Q12HR [facility] Administration Nitroglycerin 1 patch 10/22/24 09:55 10/23/24 09:23 Nitroglycerin 0.1 Mg/Hr Patch TRANSDERM 1 patch QAM [facility] Administration Ondansetron HCl 4 mg 10/18/24 19:08 Ondansetron Inj 4 Mg/2 Ml Vial IV PUSH Q4H PRN Nausea Scopolamine 1 patch 10/22/24 09:00 10/22/24 13:17 Scopolamine 1 Mg Patch TRANSDERM 1 patch Q72HR [facility] Administration Senna 8.6 mg 10/19/24 09:00 10/21/24 12:14 Sennosides 8.6 Mg Tablet FEED TUBE Not Given BID [facility] Thiamine HCl 100 mg 10/19/24 09:00 10/21/24 10:08 Thiamine Hcl 100 Mg Tablet FEED TUBE Not Given DAILY [facility] Radiology Results: ITS Impressions Abdomen CT 10/18/24 22:58 IMPRESSION: Findings consistent with (likely) gallstone pancreatitis, as detailed above. Imaging findings are now much clearer after fluid resuscitation. Redemonstration of a percutaneous gastrostomy with its balloon extending to the level of the pylorus, rather than immediately beneath the undersurface of the anterior abdominal wall for which withdrawal of 4.9 cm (with the balloon continuously inflated) is recommended for optimal radiographic placement. Abdomen X-Ray 10/22/24 12:31 IMPRESSION: Decreased air opacification of the colon, when compared with previous days examination. No air is identified within the rectum. Abdomen/Pelvis CT 10/23/24 11:47 IMPRESSION: Findings consistent with patient's known history of acute pancreatitis. The gallbladder is now decompressed. Rather than percutaneous cholecystostomy with cholangiography, would recommend MRCP (in this patient with normal renal function) for further evaluation of the biliary tree. Labs Labs: Laboratory Results - last 24 hr 10/23/24 10/23/24 07:51 09:45 WBC 8.2 RBC 3.26 L Hgb 10.5 L Hct 32.2 L MCV 98.8 MCH 32.2 MCHC 32.6 RDW 13.2 Plt Count 138 L MPV 12.9 H Immature Gran % (Auto) 0.2 Neut % (Auto) 61.5 Lymph % (Auto) 22.0 [place] % (Auto) 11.0 H Eos % (Auto) 5.1 H Baso % (Auto) 0.2 Lymph # (Auto) 1.80 [place] # (Auto) 0.9 H Eos # (Auto) 0.4 H Baso # (Auto) 0.0 Abs Immat Gran (auto) 0.02 Absolute Neuts (auto) 5.0 Absolute Nucleated RBC 0.000 Nucleated RBC % 0.0 PT 15.3 H INR 1.2 APTT 38.5 H Sodium 141 Potassium 3.4 Chloride 107 Carbon Dioxide 27 Anion Gap 7 BUN 9 D Creatinine 0.57 L Estim Creat Clear Calc 119 Estimated GFR > 60 Glucose 80 Calcium 8.9 Magnesium 1.8 Total Bilirubin 0.9 AST 26 ALT 21 Alkaline Phosphatase 74 Total Protein 7.0 Albumin 3.2 L Quality VTE Prophylaxis VTE prophylaxis: mechanical ordered
[2024-10-23] MEDS: ACETAMINOPHEN 325 MG SUPPOSITORY RECTAL (20:56)
[2024-10-24] VITALS (24 sets, daily range): BP systolic 152–191; BP diastolic 72–83; PULSE 81–107; RESP 18–20; TEMP 36.9–37.7; O2SAT 90–100
[2024-10-24] MEDS: PIPERACILLN/TAZ 3.375GM/NS50ML 3.375 GM/50 ML BAG IVPB ×2 (00:35→05:23)
[2024-10-24 05:58] LABS: Alanine Aminotransferase 21 U/L (6-50); Albumin Level 3.5 g/dL (3.5-5.1); Alkaline Phosphatase 85 U/L (38-126); Anion Gap 12 mmol/L (4-12); Aspartate Amino Transferase 36 U/L (17-59); Bilirubin,Total 0.8 mg/dL (0.2-1.3); Blood Urea Nitrogen 8 mg/dL (9-20); Calcium 9.3 mg/dL (8.4-10.2); Carbon Dioxide 21 mmol/L (22-30); Chloride 106 mmol/L (98-107); Estimated CRCL calculation 142 ml/min; Estimated Glomerular Filt Rate > 60; Glucose 68 mg/dL (65-110); Magnesium 1.9 mg/dL (1.6-2.3); Potassium 4.6 mmol/L (3.4-5.0); Sodium 139 mmol/L (137-145)
[2024-10-24] MEDS: DEXTROSE 50% 25 GM/50 ML SYRINGE IV PUSH (06:05)
[2024-10-24] MEDS: hydrALAZINE HCL 20 MG/ML VIAL 10 MG IV PUSH (06:09)
[2024-10-24 06:52] LABS: Glucose Point of Care 152 mg/dl (65-105)
--- NOTE | 2024-10-24 07:22 | WPDGIPROGNO ---
Progress Note: A&P Assessment and Plan (1) Acute pancreatitis: Code(s): K85.90 - Acute pancreatitis without necrosis or infection, unspecified Status: Acute Assessment and Plan: This patient's acute pancreatitis has resolved, and we presume it was biliary in origin. A cholecystostomy tube wasn't placed yesterday because the gallbladder was contracted, suggesting adequate drainage. However, the status of the common bile duct remains unknown, as we couldn't obtain a cholangiogram via MRCP or direct cholangiography to assess for gallstones. Regarding nutrition, we'll start slow tube feedings at 10 mL/hour and monitor tolerance. The immediate goal isn't to meet full nutritional needs, but rather to maintain intestinal integrity and prevent atrophy and bacterial translocation. Subjective Date/time seen: 10/24/24 07:22 Interval history: The patient is clinically stable. There was no further drainage through the gastrostomy tube in 24 hours. Exam Narrative: Abdomen: Softer than yesterday, bowel sounds present, nontender. Rest of the exam unchange Objective Data Vital Signs Vital Signs: Vital Signs - 24 hr 10/23/24 08:00 10/23/24 08:00 10/23/24 08:00 Temperature 99.2 F Pulse Rate 89 89 Respiratory Rate 20 Blood Pressure 158/81 H Pulse Oximetry 94 96 Oxygen Delivery High Flow Therapy with Tr Oxygen Flow Rate 25 Fraction of Inspired Oxygen 10/23/24 08:12 10/23/24 09:23 10/23/24 10:00 Temperature Pulse Rate 97 84 Respiratory Rate Blood Pressure Pulse Oximetry 95 Oxygen Delivery High Flow Therapy with Tr Oxygen Flow Rate 25 Fraction of Inspired Oxygen 10/23/24 11:28 10/23/24 12:00 10/23/24 12:00 Temperature 99.7 F H Pulse Rate 87 88 Respiratory Rate 18 Blood Pressure 156/77 H Pulse Oximetry 93 96 Oxygen Delivery High Flow Therapy with Tr Oxygen Flow Rate 25 Fraction of Inspired Oxygen 10/23/24 14:00 10/23/24 14:58 10/23/24 16:00 Temperature 99.7 F H Pulse Rate 94 91 Respiratory Rate 18 Blood Pressure 141/76 H Pulse Oximetry 95 96 Oxygen Delivery High Flow Therapy with Tr Oxygen Flow Rate 25 Fraction of Inspired Oxygen 10/23/24 16:00 10/23/24 16:00 10/23/24 18:00 Temperature Pulse Rate 91 99 Respiratory Rate Blood Pressure Pulse Oximetry 96 Oxygen Delivery High Flow Therapy with Tr Oxygen Flow Rate 25 Fraction of Inspired Oxygen 10/23/24 19:44 10/23/24 20:00 10/23/24 20:00 Temperature Pulse Rate 103 H 101 H Respiratory Rate Blood Pressure Pulse Oximetry 95 98 Oxygen Delivery High Flow Therapy with Tr High Flow Therapy with Tr Oxygen Flow Rate 25 25 Fraction of Inspired Oxygen 10/23/24 20:01 10/23/24 20:41 10/23/24 20:56 Temperature 100.6 F H 100.6 F H Pulse Rate 99 99 Respiratory Rate 18 Blood Pressure 139/77 Pulse Oximetry 95 Oxygen Delivery Oxygen Flow Rate Fraction of Inspired Oxygen 10/23/24 21:56 10/23/24 22:00 10/24/24 00:00 Temperature 98.5 F Pulse Rate 84 Respiratory Rate Blood Pressure Pulse Oximetry 96 Oxygen Delivery High Flow Therapy with Tr Oxygen Flow Rate 25 Fraction of Inspired Oxygen 10/24/24 00:00 10/24/24 00:43 10/24/24 02:00 Temperature 100 F H Pulse Rate 83 99 85 Respiratory Rate 20 Blood Pressure 179/79 H Pulse Oximetry 100 Oxygen Delivery Oxygen Flow Rate Fraction of Inspired Oxygen 10/24/24 03:47 10/24/24 04:00 10/24/24 04:00 Temperature Pulse Rate 81 82 Respiratory Rate Blood Pressure Pulse Oximetry 97 94 Oxygen Delivery High Flow Therapy with Tr High Flow Therapy with Tr Oxygen Flow Rate 25 25 Fraction of Inspired Oxygen 10/24/24 04:08 10/24/24 06:00 10/24/24 06:09 Temperature 98.4 F Pulse Rate 89 94 Respiratory Rate 20 Blood Pressure 191/79 H 173/82 H Pulse Oximetry 93 Oxygen Delivery Oxygen Flow Rate Fraction of Inspired Oxygen 10/24/24 06:52 Temperature Pulse Rate Respiratory Rate Blood Pressure 157/72 H Pulse Oximetry Oxygen Delivery Oxygen Flow Rate Fraction of Inspired Oxygen Intake/Output Intake/Output: Intake & Output 10/21/24 10/22/24 10/23/24 10/24/24 23:59 23:59 23:59 23:59 Intake Total 5947 0856 8909 50 Output Total 1550 1400 1025 1600 Balance 7098 985 7884 -1550 Meds/Results Medications: Active Medications Generic Name Dose Route Start Last Admin Trade Name Wesley PRN Reason Stop Dose Admin Acetaminophen 325 mg 10/21/24 12:12 10/23/24 20:56 Acetaminophen 325 Mg Suppository RECTAL 325 mg Q4H PRN Administration Mild Pain (1-3) or Fever Albuterol/Ipratropium 3 ml 10/19/24 00:22 Ipratropium 0.5 Mg/Albuterol Sulfate 2.5 Mg Ampul.Neb 3 Ml INHALATION Q6HRT PRN Shortness Of Breath Bisacodyl 10 mg 10/19/24 00:22 Bisacodyl 10 Mg Suppository RECTAL DAILY PRN Constipation Clobazam 10 mg 10/19/24 09:00 10/21/24 10:07 Clobazam (*Crx) 10 Mg Tablet FEED TUBE Not Given DAILY [facility] Dextrose 12.5 gm 10/20/24 20:45 10/24/24 06:05 Dextrose 50% 25 Gm/50 Ml Syringe IV PUSH 12.5 gm PRN PRN Administration Hypoglycemia Protocol Folic Acid 1 mg 10/19/24 09:00 10/21/24 10:07 Folic Acid 1 Mg Tablet FEED TUBE Not Given DAILY [facility] Glucose 15 gm 10/20/24 20:45 Glucose Oral Gel 15 Gm Of Glucse In 37.5 Gm Tube PO PRN PRN Hypoglycemia Protocol Glycopyrrolate 2 mg 10/19/24 00:50 10/21/24 12:14 Glycopyrrolate 1 Mg Tablet FEED TUBE Not Given Q8HR [facility] Hydralazine HCl 10 mg 10/22/24 11:45 10/24/24 06:09 Hydralazine Hcl 20 Mg/Ml Vial IV PUSH 10 mg Q6H PRN Administration Blood Pressure -systolic>160 Hydromorphone HCl 0.5 mg 10/18/24 19:08 10/23/24 05:30 Hydromorphone Hcl Inj (*Crx) 2 Mg/Ml Vial IV PUSH 0.5 mg Q4H PRN Administration Pain Rated 7-10 Piperacillin/Tazobactam/Dextrose 3.375 gm in 50 mls @ 100 mls/hr 10/19/24 01:00 10/24/24 05:23 Zosyn 3.375 Gm/Ns 50 Ml IVPB 100 mls/hr Q6HR [facility] Administration Lactated Ringer's 1,000 mls @ 60 mls/hr 10/19/24 00:05 10/23/24 18:12 Lr - Lactated Ringers Iv IV CONT 60 mls/hr .[id number] [facility] Administration Dextrose 1,000 mls @ 100 mls/hr 10/20/24 20:45 Dextrose 5% 1,000 Ml IVPB PRN PRN Hypoglycemia Protocol Levetiracetam 1,000 mg in 100 mls @ 400 mls/hr 10/21/24 12:46 10/23/24 20:55 Keppra Iv IVPB Infused Q12HR [facility] Infusion Levetiracetam 1,000 mg in 100 mls @ 400 mls/hr 10/21/24 12:45 10/23/24 20:56 Keppra Iv IVPB Infused Q12HR [facility] Infusion Lacosamide 250 mg/ Sodium 100 mls @ 200 mls/hr 10/22/24 11:00 10/23/24 21:36 Chloride IVPB Infused Q12HR [facility] Infusion Lacosamide 200 mg 10/19/24 01:10 10/21/24 12:14 Lacosamide (*Crx) 200 Mg Tablet FEED TUBE Not Given Q12HR [facility] Lacosamide 50 mg 10/20/24 21:00 10/21/24 12:14 Lacosamide (*Crx) 50 Mg Tablet PO Not Given Q12HR [facility] Lorazepam 2 mg 10/19/24 10:34 Lorazepam Inj (*Crx) 2 Mg/Ml Vial IV PUSH Q4HR PRN Seizure Activity Magnesium Hydroxide 30 ml 10/19/24 00:22 Magnesium Hydroxide Susp 30 Ml Udc PO HS PRN Constipation Metoclopramide HCl 10 mg 10/19/24 09:00 Metoclopramide Hcl 10 Mg Tablet FEED TUBE TID [facility] Metoclopramide HCl 5 mg 10/22/24 14:19 Metoclopramide Hcl Inj 10 Mg/2 Ml Vial IV PUSH Q6HR PRN Vomiting Metoprolol Tartrate 25 mg 10/19/24 00:25 10/21/24 10:08 Metoprolol Tartrate 25 Mg Tablet FEED TUBE Not Given Q12HR [facility] Metoprolol Tartrate 5 mg 10/21/24 12:55 10/23/24 20:41 Metoprolol Tartrate Inj 5 Mg/5 Ml Vial IV PUSH 5 mg Q12HR [facility] Administration Nitroglycerin 1 patch 10/22/24 09:55 10/23/24 09:23 Nitroglycerin 0.1 Mg/Hr Patch TRANSDERM 1 patch QAM [facility] Administration Ondansetron HCl 4 mg 10/18/24 19:08 Ondansetron Inj 4 Mg/2 Ml Vial IV PUSH Q4H PRN Nausea Scopolamine 1 patch 10/22/24 09:00 10/22/24 13:17 Scopolamine 1 Mg Patch TRANSDERM 1 patch Q72HR [facility] Administration Senna 8.6 mg 10/19/24 09:00 10/21/24 12:14 Sennosides 8.6 Mg Tablet FEED TUBE Not Given BID [facility] Thiamine HCl 100 mg 10/19/24 09:00 10/21/24 10:08 Thiamine Hcl 100 Mg Tablet FEED TUBE Not Given DAILY [facility] Radiology Results: ITS Impressions Abdomen CT 10/18/24 22:58 IMPRESSION: Findings consistent with (likely) gallstone pancreatitis, as detailed above. Imaging findings are now much clearer after fluid resuscitation. Redemonstration of a percutaneous gastrostomy with its balloon extending to the level of the pylorus, rather than immediately beneath the undersurface of the anterior abdominal wall for which withdrawal of 4.9 cm (with the balloon continuously inflated) is recommended for optimal radiographic placement. Abdomen X-Ray 10/22/24 12:31 IMPRESSION: Decreased air opacification of the colon, when compared with previous days examination. No air is identified within the rectum. Abdomen/Pelvis CT 10/23/24 11:47 IMPRESSION: Findings consistent with patient's known history of acute pancreatitis. The gallbladder is now decompressed. Rather than percutaneous cholecystostomy with cholangiography, would recommend MRCP (in this patient with normal renal function) for further evaluation of the biliary tree. Abdomen Ultrasound 10/24/24 05:44 Impression: Limited exam due to bowel gas shadowing and body habitus. No definite evidence for cholecystitis. No significant abnormality identified. Labs Labs: Laboratory Results - last 24 hr 10/23/24 10/23/24 10/24/24 07:51 09:45 04:45 WBC 8.2 RBC 3.26 L Hgb 10.5 L Hct 32.2 L MCV 98.8 MCH 32.2 MCHC 32.6 RDW 13.2 Plt Count 138 L MPV 12.9 H Immature Gran % (Auto) 0.2 Neut % (Auto) 61.5 Lymph % (Auto) 22.0 [place] % (Auto) 11.0 H Eos % (Auto) 5.1 H Baso % (Auto) 0.2 Lymph # (Auto) 1.80 [place] # (Auto) 0.9 H Eos # (Auto) 0.4 H Baso # (Auto) 0.0 Abs Immat Gran (auto) 0.02 Absolute Neuts (auto) 5.0 Absolute Nucleated RBC 0.000 Nucleated RBC % 0.0 PT 15.3 H INR 1.2 APTT 38.5 H Sodium 141 139 Potassium 3.4 4.6 Chloride 107 106 Carbon Dioxide 27 21 L Anion Gap 7 12 BUN 9 D 8 L Creatinine 0.57 L 0.47 L Estim Creat Clear Calc 119 142 Estimated GFR > 60 > 60 Glucose 80 68 POC Capillary Glucose Calcium 8.9 9.3 Magnesium 1.8 1.9 Total Bilirubin 0.9 0.8 AST 26 36 ALT 21 21 Alkaline Phosphatase 74 85 Total Protein 7.0 7.0 Albumin 3.2 L 3.5 10/24/24 06:50 WBC RBC Hgb Hct MCV MCH MCHC RDW Plt Count MPV Immature Gran % (Auto) Neut % (Auto) Lymph % (Auto) [place] % (Auto) Eos % (Auto) Baso % (Auto) Lymph # (Auto) [place] # (Auto) Eos # (Auto) Baso # (Auto) Abs Immat Gran (auto) Absolute Neuts (auto) Absolute Nucleated RBC Nucleated RBC % PT INR APTT Sodium Potassium Chloride Carbon Dioxide Anion Gap BUN Creatinine Estim Creat Clear Calc Estimated GFR Glucose POC Capillary Glucose 152 H Calcium Magnesium Total Bilirubin AST ALT Alkaline Phosphatase Total Protein Albumin
[2024-10-24 08:19] LABS: Basophils Percent Auto 0.4 % (0.2-1.2); Eosinophils Absolute Auto 0.4 K/mm3 (0-0.3); Hematocrit 34.5 % (42.0-52.0); Hemoglobin 11.3 g/dL (14.0-18.0); Immature Granulocyte Absolute 0.08 K/mm3 (0.00-0.031); Immature Granulocyte Percent A 1.1 % (0-0.5); Lymphocytes Percent Auto 21.4 % (18.3-44.2); Mean Corpuscular HGB Conc 32.8 g/dl (32-36); Mean Corpuscular Hemoglobin 32.4 pg (26-34); Mean Corpuscular Volume 98.9 fl (80-100); Mean Platelet Volume 12.2 fl (7.4-10.4); Monocytes Absolute Auto 0.9 K/mm3 (0.1-0.6); Monocytes Percent Auto 11.4 % (2.6-8.5); Neutrophils Absolute Auto 4.5 K/mm3 (1.3-6.7); Neutrophils Percent Auto 60.7 % (45.5-73.1); Platelet Count Result 167 k/mm3 (150-375); Red Blood Count 3.49 M/mm3 (4.6-6.20); White Blood Count 7.5 K/mm3 (4.5-10.0)
[2024-10-24] MEDS: LACOSAMIDE IVPB ×2 (08:45→21:44)
[2024-10-24] MEDS: SODIUM CHLORIDE 0.9% IVPB ×2 (08:45→21:44)
[2024-10-24] MEDS: METOPROLOL TARTRATE INJ 5 MG/5 ML VIAL IV PUSH ×2 (08:46→20:36)
[2024-10-24] MEDS: HYDROmorphone HCL INJ (*CRX) 2 MG/ML VIAL 0.5 MG IV PUSH ×2 (08:47→18:00)
[2024-10-24] MEDS: levETIRAcetam 1000MG/NACL100ML 1,000 MG/100 ML BAG 400 MG IVPB ×4 (08:51→20:23)
[2024-10-24] MEDS: NITROGLYCERIN 0.1 MG/HR PATCH 1 PATCH TRANSDERM (08:51)
--- NOTE | 2024-10-24 11:20 | P.PNGS_ITS ---
Progress Note: A&P Assessment and Plan (1) Cholecystitis: Code(s): K81.9 - Cholecystitis, unspecified Status: Acute Assessment and Plan: * Continue broad spectrum IV antibiotics. Overall not a good surgical can didate. * Gallbladder ultrasound this morning demonstrated no evidence of bile duct dilation, gallstone, or wall thickening. Cholecystitis unlikely. Patient does not need percutaneous cholecystostomy tube at this time. Will continue to monitor with serial abdominal exams. (2) Acute pancreatitis: Code(s): K85.90 - Acute pancreatitis without necrosis or infection, unspecified Status: Acute Assessment and Plan: Continue medical management. (3) Severe sepsis: Code(s): A41.9 - Sepsis, unspecified organism; R65.20 - Severe sepsis without septic shock Status: Acute (4) Chronic hypoxemic respiratory failure: Code(s): J96.11 - Chronic respiratory failure with hypoxia Status: Chronic (5) Epilepsy: Code(s): G40.909 - Epilepsy, unspecified, not intractable, without status epilepticus Status: Acute (6) Cerebrovascular accident: Code(s): I63.9 - Cerebral infarction, unspecified Status: Chronic Subjective Subjective Date/Time Seen: 10/24/24 11:20 Interval history: No abdominal pain or other complaints. Nurse is going to attempt tube feedings today. Exam Narrative: Exam limited due to patient's current physical state. Nonverbal. Const: General: comfortable and no acute distress GI: Inspection: distended GI Palp: Yes Soft to palpation, No Tenderness to palpation present (GI) and No Guarding due to palpation present (GI) Auscultation: abnormal bowel sounds (hypoactive bowel sounds) Other: G-tube in place. Mildly distended abdomen. Objective Data Vital Signs Vital Signs: Vital Signs - 24 hr 10/23/24 11:28 10/23/24 12:00 10/23/24 12:00 Temperature 99.7 F H Pulse Rate 87 88 Respiratory Rate 18 Blood Pressure 156/77 H Pulse Oximetry 93 96 Oxygen Delivery High Flow Therapy with Tr Oxygen Flow Rate 25 Fraction of Inspired Oxygen 29 10/23/24 14:00 10/23/24 14:58 10/23/24 16:00 Temperature 99.7 F H Pulse Rate 94 91 Respiratory Rate 18 Blood Pressure 141/76 H Pulse Oximetry 95 96 Oxygen Delivery High Flow Therapy with Tr Oxygen Flow Rate 25 Fraction of Inspired Oxygen 10/23/24 16:00 10/23/24 16:00 10/23/24 18:00 Temperature Pulse Rate 91 99 Respiratory Rate Blood Pressure Pulse Oximetry 96 Oxygen Delivery High Flow Therapy with Tr Oxygen Flow Rate 25 Fraction of Inspired Oxygen 10/23/24 19:44 10/23/24 20:00 10/23/24 20:00 Temperature Pulse Rate 103 H 101 H Respiratory Rate Blood Pressure Pulse Oximetry 95 98 Oxygen Delivery High Flow Therapy with Tr High Flow Therapy with Tr Oxygen Flow Rate 25 25 Fraction of Inspired Oxygen 10/23/24 20:01 10/23/24 20:41 10/23/24 20:56 Temperature 100.6 F H 100.6 F H Pulse Rate 99 99 Respiratory Rate 18 Blood Pressure 139/77 Pulse Oximetry 95 Oxygen Delivery Oxygen Flow Rate Fraction of Inspired Oxygen 10/23/24 21:56 10/23/24 22:00 10/24/24 00:00 Temperature 98.5 F Pulse Rate 84 Respiratory Rate Blood Pressure Pulse Oximetry 96 Oxygen Delivery High Flow Therapy with Tr Oxygen Flow Rate 25 Fraction of Inspired Oxygen 10/24/24 00:00 10/24/24 00:43 10/24/24 02:00 Temperature 100 F H Pulse Rate 83 99 85 Respiratory Rate 20 Blood Pressure 179/79 H Pulse Oximetry 100 Oxygen Delivery Oxygen Flow Rate Fraction of Inspired Oxygen 10/24/24 03:47 10/24/24 04:00 10/24/24 04:00 Temperature Pulse Rate 81 82 Respiratory Rate Blood Pressure Pulse Oximetry 97 94 Oxygen Delivery High Flow Therapy with Tr High Flow Therapy with Tr Oxygen Flow Rate 25 25 Fraction of Inspired Oxygen 10/24/24 04:08 10/24/24 06:00 10/24/24 06:09 Temperature 98.4 F Pulse Rate 89 94 Respiratory Rate 20 Blood Pressure 191/79 H 173/82 H Pulse Oximetry 93 Oxygen Delivery Oxygen Flow Rate Fraction of Inspired Oxygen 10/24/24 06:52 10/24/24 07:51 10/24/24 08:46 Temperature 99.2 F Pulse Rate 104 H 107 H Respiratory Rate 20 Blood Pressure 157/72 H 153/77 H Pulse Oximetry 95 Oxygen Delivery Oxygen Flow Rate Fraction of Inspired Oxygen 10/24/24 09:18 Temperature Pulse Rate Respiratory Rate Blood Pressure Pulse Oximetry 94 Oxygen Delivery High Flow Therapy with Tr Oxygen Flow Rate 25 Fraction of Inspired Oxygen 28 Intake/Output Intake/Output: Intake & Output 10/21/24 10/22/24 10/23/24 10/24/24 23:59 23:59 23:59 23:59 Intake Total 2858 1546 2589 50 Output Total 1550 1400 1025 1600 Balance 6503 516 4464 -1550 Meds/Results Medications: Active Medications Generic Name Dose Route Start Last Admin Trade Name Freq PRN Reason Stop Dose Admin Acetaminophen 325 mg 10/21/24 12:12 10/23/24 20:56 Acetaminophen 325 Mg Suppository RECTAL 325 mg Q4H PRN Administration Mild Pain (1-3) or Fever Albuterol/Ipratropium 3 ml 10/19/24 00:22 Ipratropium 0.5 Mg/Albuterol Sulfate 2.5 Mg Ampul.Neb 3 Ml INHALATION Q6HRT PRN Shortness Of Breath Bisacodyl 10 mg 10/19/24 00:22 Bisacodyl 10 Mg Suppository RECTAL DAILY PRN Constipation Clobazam 10 mg 10/19/24 09:00 10/21/24 10:07 Clobazam (*Crx) 10 Mg Tablet FEED TUBE Not Given DAILY TER[facility] Dextrose 12.5 gm 10/20/24 20:45 10/24/24 06:05 Dextrose 50% 25 Gm/50 Ml Syringe IV PUSH 12.5 gm PRN PRN Administration Hypoglycemia Protocol Folic Acid 1 mg 10/19/24 09:00 10/21/24 10:07 Folic Acid 1 Mg Tablet FEED TUBE Not Given DAILY TERRE[facility] Glucose 15 gm 10/20/24 20:45 Glucose Oral Gel 15 Gm Of Glucse In 37.5 Gm Tube PO PRN PRN Hypoglycemia Protocol Glycopyrrolate 2 mg 10/19/24 00:50 10/21/24 12:14 Glycopyrrolate 1 Mg Tablet FEED TUBE Not Given Q8HR [facility] Hydralazine HCl 10 mg 10/22/24 11:45 10/24/24 06:09 Hydralazine Hcl 20 Mg/Ml Vial IV PUSH 10 mg Q6H PRN Administration Blood Pressure -systolic>160 Hydromorphone HCl 0.5 mg 10/18/24 19:08 10/24/24 08:47 Hydromorphone Hcl Inj (*Crx) 2 Mg/Ml Vial IV PUSH 0.5 mg Q4H PRN Administration Pain Rated 7-10 Lactated Ringer's 1,000 mls @ 60 mls/hr 10/19/24 00:05 10/23/24 18:12 Lr - Lactated Ringers Iv IV CONT 60 mls/hr .[id number] [facility] Administration Dextrose 1,000 mls @ 100 mls/hr 10/20/24 20:45 Dextrose 5% 1,000 Ml IVPB PRN PRN Hypoglycemia Protocol Levetiracetam 1,000 mg in 100 mls @ 400 mls/hr 10/21/24 12:46 10/24/24 08:51 Keppra Iv IVPB 400 mls/hr Q12HR TER[facility] Administration Levetiracetam 1,000 mg in 100 mls @ 400 mls/hr 10/21/24 12:45 10/24/24 08:54 Keppra Iv IVPB 400 mls/hr Q12HR [facility] Administration Lacosamide 250 mg/ Sodium 100 mls @ 200 mls/hr 10/22/24 11:00 10/24/24 08:45 Chloride IVPB 200 mls/hr Q12HR [facility] Administration Levofloxacin/Dextrose 750 mg in 150 mls @ 100 mls/hr 10/24/24 12:00 Levaquin 750 Mg/D5w 150 Ml IVPB Q24H [facility] Metronidazole 500 mg in 100 mls @ 100 mls/hr 10/24/24 14:00 Flagyl 500 Mg/Iso Soln 100 Ml IVPB Q8HR [facility] Lacosamide 200 mg 10/19/24 01:10 10/21/24 12:14 Lacosamide (*Crx) 200 Mg Tablet FEED TUBE Not Given Q12HR [facility] Lacosamide 50 mg 10/20/24 21:00 10/21/24 12:14 Lacosamide (*Crx) 50 Mg Tablet PO Not Given Q12HR [facility] Lorazepam 2 mg 10/19/24 10:34 Lorazepam Inj (*Crx) 2 Mg/Ml Vial IV PUSH Q4HR PRN Seizure Activity Magnesium Hydroxide 30 ml 10/19/24 00:22 Magnesium Hydroxide Susp 30 Ml Udc PO HS PRN Constipation Metoclopramide HCl 10 mg 10/19/24 09:00 Metoclopramide Hcl 10 Mg Tablet FEED TUBE TID TER[facility] Metoclopramide HCl 5 mg 10/22/24 14:19 Metoclopramide Hcl Inj 10 Mg/2 Ml Vial IV PUSH Q6HR PRN Vomiting Metoprolol Tartrate 25 mg 10/19/24 00:25 10/21/24 10:08 Metoprolol Tartrate 25 Mg Tablet FEED TUBE Not Given Q12HR [facility] Metoprolol Tartrate 5 mg 10/21/24 12:55 10/24/24 08:46 Metoprolol Tartrate Inj 5 Mg/5 Ml Vial IV PUSH 5 mg Q12HR [facility] Administration Nitroglycerin 1 patch 10/22/24 09:55 10/24/24 08:51 Nitroglycerin 0.1 Mg/Hr Patch TRANSDERM 1 patch QAM TER[facility] Administration Ondansetron HCl 4 mg 10/18/24 19:08 Ondansetron Inj 4 Mg/2 Ml Vial IV PUSH Q4H PRN Nausea Scopolamine 1 patch 10/22/24 09:00 10/22/24 13:17 Scopolamine 1 Mg Patch TRANSDERM 1 patch Q72HR [facility] Administration Senna 8.6 mg 10/19/24 09:00 10/21/24 12:14 Sennosides 8.6 Mg Tablet FEED TUBE Not Given BID TERRE[facility] Thiamine HCl 100 mg 10/19/24 09:00 10/21/24 10:08 Thiamine Hcl 100 Mg Tablet FEED TUBE Not Given DAILY [facility] Radiology Results: ITS Impressions Abdomen CT 10/18/24 22:58 IMPRESSION: Findings consistent with (likely) gallstone pancreatitis, as detailed above. Imaging findings are now much clearer after fluid resuscitation. Redemonstration of a percutaneous gastrostomy with its balloon extending to the level of the pylorus, rather than immediately beneath the undersurface of the anterior abdominal wall for which withdrawal of 4.9 cm (with the balloon continuously inflated) is recommended for optimal radiographic placement. Abdomen X-Ray 10/22/24 12:31 IMPRESSION: Decreased air opacification of the colon, when compared with previous days examination. No air is identified within the rectum. Abdomen/Pelvis CT 10/23/24 11:47 IMPRESSION: Findings consistent with patient's known history of acute pancreatitis. The gallbladder is now decompressed. Rather than percutaneous cholecystostomy with cholangiography, would recommend MRCP (in this patient with normal renal function) for further evaluation of the biliary tree. Abdomen Ultrasound 10/24/24 05:44 Impression: Limited exam due to bowel gas shadowing and body habitus. No definite evidence for cholecystitis. No significant abnormality identified. Labs Labs: Laboratory Results - last 24 hr 10/24/24 10/24/24 10/24/24 04:45 06:50 08:09 WBC 7.5 RBC 3.49 L Hgb 11.3 L Hct 34.5 L MCV 98.9 MCH 32.4 MCHC 32.8 RDW 13.0 Plt Count 167 MPV 12.2 H Immature Gran % (Auto) 1.1 H Neut % (Auto) 60.7 Lymph % (Auto) 21.4 [place] % (Auto) 11.4 H Eos % (Auto) 5.0 H Baso % (Auto) 0.4 Lymph # (Auto) 1.60 [place] # (Auto) 0.9 H Eos # (Auto) 0.4 H Baso # (Auto) 0.0 Abs Immat Gran (auto) 0.08 H Absolute Neuts (auto) 4.5 Absolute Nucleated RBC 0.000 Nucleated RBC % 0.0 Sodium 139 Potassium 4.6 Chloride 106 Carbon Dioxide 21 L Anion Gap 12 BUN 8 L Creatinine 0.47 L Estim Creat Clear Calc 142 Estimated GFR > 60 Glucose 68 POC Capillary Glucose 152 H Calcium 9.3 Magnesium 1.9 Total Bilirubin 0.8 AST 36 ALT 21 Alkaline Phosphatase 85 Total Protein 7.0 Albumin 3.5
[2024-10-24] MEDS: levoFLOXacin 750 MG/D5W 150 ML 750 MG/150 ML BAG 100 MG IVPB (11:48)
[2024-10-24 12:32] LABS: Glucose Point of Care 97 mg/dl (65-105)
[2024-10-24] MEDS: metroNIDAZOLE 500 MG/ISO 100ML 500 MG/100 ML BAG 100 MG IVPB ×2 (14:00→22:55)
--- NOTE | 2024-10-24 14:35 | PM.IMPN ---
Progress Note: A&P Assessment and Plan (1) Cholecystitis: Code(s): K81.9 - Cholecystitis, unspecified Status: Acute Assessment and Plan: -Nausea, vomiting, abdominal distension -CT findings of markedly distended gallbladder with layering stones and surrounding free fluid -Lipase highly elevated raising concern for choledocholithiasis with acute pancreatitis -IV Zosyn started in ER -NPO status (except vital medications) -PRN pain and nausea medication -GI and General Surgery consulted by ER provider -MRCP ordered for tomorrow -Hold Eliquis SCDs for VTE prophylaxis -Morning labs ordered -IV fluids given for elevated lipase and highly elevated lactic acid -Ordered STAT procalcitonin, ESR, CRP with daily recheck x3 Surgery noted no intervention needed at this time and monitor on medical management (2) Severe sepsis: Code(s): A41.9 - Sepsis, unspecified organism; R65.20 - Severe sepsis without septic shock Status: Acute Assessment and Plan: Due to cholecystitis, see above (3) Pancreatitis: Code(s): K85.90 - Acute pancreatitis without necrosis or infection, unspecified Status: Acute Assessment and Plan: See above, concern for choledocholithiasis started on tueb feeding 10ml/hr, monitor (4) Malfunction of gastrostomy tube: Code(s): K94.23 - Gastrostomy malfunction Status: Acute Assessment and Plan: -CT abdomen pelvis showed G-tube malpositioned too deep within the stomach -This was pulled back by ER provider -Current NPO status (except vital medications) due to acute cholecystitis and pancreatitis (5) History of multiple strokes: Code(s): Z86.73 - Personal history of transient ischemic attack (TIA), and cerebral infarction without residual deficits Status: Chronic Assessment and Plan: -Non-verbal with trach and G-tube chronically due to prior CVAs with significant residual deficits (6) Epilepsy: Code(s): G40.909 - Epilepsy, unspecified, not intractable, without status epilepticus Status: Acute Assessment and Plan: -History of epilepsy, on multiple medications which will be continued Dose adjustment will be done as per neurologist request. Will taper Depakote from t.i.d. to b.i.d. to once a day and will be totally discontinued from Tuesday. Vimpat will be increased from 200 mg p.o. b.i.d. to 250 mg p.o. b.i.d.. And Keppra will be increased from 17 50 mg p.o. b.i.d. to 2 g p.o. b.i.d. (7) Acute lactic acidosis: Code(s): E87.21 - Acute metabolic acidosis Status: Acute Assessment and Plan: -Likely due to severe sepsis related to acute cholecystitis -Improvement on recheck after additional IV fluids -May rise again by morning after seizure -Patient profoundly dehydrated upon arrival to ER. Plan DVT prophylaxis on Sq lovenox Subjective Date/time seen: 10/24/24 14:35 Interval history: Comfortable at bedside Review of Systems Review of Systems: ROS unobtainable: Yes unobtainable due to mental status Exam Narrative: GENERAL: Chronically ill-appearing, well-nourished, and in no acute distress. HEAD: Normocephalic, atraumatic. EYES: PERRL and EOMI. NECK: Supple. Tracheostomy with no significant plugging of the tube. CHEST: Clear to auscultation. No respiratory distress. HEART: Regular rate and rhythm. Normal peripheral pulses. ABDOMEN: Mildly distended abdomen without significant tenderness. Peg site appears normal. Normal bowel sounds. EXTREMITIES: Right lower extremity in cushion boot. Left AKA. NEURO: Awake, alert, and at neurologic baseline. Objective Data Vital Signs Vital Signs: Vital Signs - 24 hr 10/23/24 14:58 10/23/24 16:00 10/23/24 16:00 Temperature 99.7 F H Pulse Rate 91 Respiratory Rate 18 Blood Pressure 141/76 H Pulse Oximetry 95 96 96 Oxygen Delivery High Flow Therapy with Tr High Flow Therapy with Tr Oxygen Flow Rate 25 25 Fraction of Inspired Oxygen 10/23/24 16:00 10/23/24 18:00 10/23/24 19:44 Temperature Pulse Rate 91 99 103 H Respiratory Rate Blood Pressure Pulse Oximetry 95 Oxygen Delivery High Flow Therapy with Tr Oxygen Flow Rate 25 Fraction of Inspired Oxygen 10/23/24 20:00 10/23/24 20:00 10/23/24 20:01 Temperature 100.6 F H Pulse Rate 101 H 99 Respiratory Rate 18 Blood Pressure 139/77 Pulse Oximetry 98 95 Oxygen Delivery High Flow Therapy with Tr Oxygen Flow Rate 25 Fraction of Inspired Oxygen 10/23/24 20:41 10/23/24 20:56 10/23/24 21:56 Temperature 100.6 F H 98.5 F Pulse Rate 99 Respiratory Rate Blood Pressure Pulse Oximetry Oxygen Delivery Oxygen Flow Rate Fraction of Inspired Oxygen 10/23/24 22:00 10/24/24 00:00 10/24/24 00:00 Temperature Pulse Rate 84 83 Respiratory Rate Blood Pressure Pulse Oximetry 96 Oxygen Delivery High Flow Therapy with Tr Oxygen Flow Rate 25 Fraction of Inspired Oxygen 10/24/24 00:43 10/24/24 02:00 10/24/24 03:47 Temperature 100 F H Pulse Rate 99 85 81 Respiratory Rate 20 Blood Pressure 179/79 H Pulse Oximetry 100 97 Oxygen Delivery High Flow Therapy with Tr Oxygen Flow Rate 25 Fraction of Inspired Oxygen 10/24/24 04:00 10/24/24 04:00 10/24/24 04:08 Temperature 98.4 F Pulse Rate 82 89 Respiratory Rate 20 Blood Pressure 191/79 H Pulse Oximetry 94 93 Oxygen Delivery High Flow Therapy with Tr Oxygen Flow Rate 25 Fraction of Inspired Oxygen 10/24/24 06:00 10/24/24 06:09 10/24/24 06:52 Temperature Pulse Rate 94 Respiratory Rate Blood Pressure 173/82 H 157/72 H Pulse Oximetry Oxygen Delivery Oxygen Flow Rate Fraction of Inspired Oxygen 10/24/24 07:51 10/24/24 08:00 10/24/24 08:46 Temperature 99.2 F Pulse Rate 104 H 107 H 107 H Respiratory Rate 20 Blood Pressure 153/77 H Pulse Oximetry 95 Oxygen Delivery Oxygen Flow Rate Fraction of Inspired Oxygen 10/24/24 09:18 10/24/24 10:00 10/24/24 11:22 Temperature 99.3 F Pulse Rate 87 91 Respiratory Rate 18 Blood Pressure 152/82 H Pulse Oximetry 94 90 Oxygen Delivery High Flow Therapy with Tr Oxygen Flow Rate 25 Fraction of Inspired Oxygen 10/24/24 12:00 10/24/24 14:00 Temperature Pulse Rate 91 93 Respiratory Rate Blood Pressure Pulse Oximetry Oxygen Delivery Oxygen Flow Rate Fraction of Inspired Oxygen Intake/Output Intake/Output: Intake & Output 10/21/24 10/22/24 10/23/24 10/24/24 23:59 23:59 23:59 23:59 Intake Total 2858 1546 2589 50 Output Total 1550 1400 1025 1600 Balance 6041 742 7710 -1550 Meds/Results Medications: Active Medications Generic Name Dose Route Start Last Admin Trade Name Freq PRN Reason Stop Dose Admin Acetaminophen 325 mg 10/21/24 12:12 10/23/24 20:56 Acetaminophen 325 Mg Suppository RECTAL 325 mg Q4H PRN Administration Mild Pain (1-3) or Fever Albuterol/Ipratropium 3 ml 10/19/24 00:22 Ipratropium 0.5 Mg/Albuterol Sulfate 2.5 Mg Ampul.Neb 3 Ml INHALATION Q6HRT PRN Shortness Of Breath Bisacodyl 10 mg 10/19/24 00:22 Bisacodyl 10 Mg Suppository RECTAL DAILY PRN Constipation Clobazam 10 mg 10/19/24 09:00 10/21/24 10:07 Clobazam (*Crx) 10 Mg Tablet FEED TUBE Not Given DAILY TERRE[facility] Dextrose 12.5 gm 10/20/24 20:45 10/24/24 06:05 Dextrose 50% 25 Gm/50 Ml Syringe IV PUSH 12.5 gm PRN PRN Administration Hypoglycemia Protocol Folic Acid 1 mg 10/19/24 09:00 10/21/24 10:07 Folic Acid 1 Mg Tablet FEED TUBE Not Given DAILY TERRE[facility] Glucose 15 gm 10/20/24 20:45 Glucose Oral Gel 15 Gm Of Glucse In 37.5 Gm Tube PO PRN PRN Hypoglycemia Protocol Glycopyrrolate 2 mg 10/19/24 00:50 10/21/24 12:14 Glycopyrrolate 1 Mg Tablet FEED TUBE Not Given Q8HR [facility] Hydralazine HCl 10 mg 10/22/24 11:45 10/24/24 06:09 Hydralazine Hcl 20 Mg/Ml Vial IV PUSH 10 mg Q6H PRN Administration Blood Pressure -systolic>160 Hydromorphone HCl 0.5 mg 10/18/24 19:08 10/24/24 08:47 Hydromorphone Hcl Inj (*Crx) 2 Mg/Ml Vial IV PUSH 0.5 mg Q4H PRN Administration Pain Rated 7-10 Lactated Ringer's 1,000 mls @ 60 mls/hr 10/19/24 00:05 10/23/24 18:12 Lr - Lactated Ringers Iv IV CONT 60 mls/hr .[id number] TERRELL Administration Dextrose 1,000 mls @ 100 mls/hr 10/20/24 20:45 Dextrose 5% 1,000 Ml IVPB PRN PRN Hypoglycemia Protocol Levetiracetam 1,000 mg in 100 mls @ 400 mls/hr 10/21/24 12:46 10/24/24 08:51 Keppra Iv IVPB 400 mls/hr Q12HR TERRELL Administration Levetiracetam 1,000 mg in 100 mls @ 400 mls/hr 10/21/24 12:45 10/24/24 08:54 Keppra Iv IVPB 400 mls/hr Q12HR TERRELL Administration Lacosamide 250 mg/ Sodium 100 mls @ 200 mls/hr 10/22/24 11:00 10/24/24 08:45 Chloride IVPB 200 mls/hr Q12HR TERRELL Administration Levofloxacin/Dextrose 750 mg in 150 mls @ 100 mls/hr 10/24/24 12:00 10/24/24 11:48 Levaquin 750 Mg/D5w 150 Ml IVPB 100 mls/hr Q24H TERRE[facility] Administration Metronidazole 500 mg in 100 mls @ 100 mls/hr 10/24/24 14:00 Flagyl 500 Mg/Iso Soln 100 Ml IVPB Q8HR TERRELL Lacosamide 200 mg 10/19/24 01:10 10/21/24 12:14 Lacosamide (*Crx) 200 Mg Tablet FEED TUBE Not Given Q12HR [facility] Lacosamide 50 mg 10/20/24 21:00 10/21/24 12:14 Lacosamide (*Crx) 50 Mg Tablet PO Not Given Q12HR [facility] Lorazepam 2 mg 10/19/24 10:34 Lorazepam Inj (*Crx) 2 Mg/Ml Vial IV PUSH Q4HR PRN Seizure Activity Magnesium Hydroxide 30 ml 10/19/24 00:22 Magnesium Hydroxide Susp 30 Ml Udc PO HS PRN Constipation Metoclopramide HCl 10 mg 10/19/24 09:00 Metoclopramide Hcl 10 Mg Tablet FEED TUBE TID TERRELL Metoclopramide HCl 5 mg 10/22/24 14:19 Metoclopramide Hcl Inj 10 Mg/2 Ml Vial IV PUSH Q6HR PRN Vomiting Metoprolol Tartrate 25 mg 10/19/24 00:25 10/21/24 10:08 Metoprolol Tartrate 25 Mg Tablet FEED TUBE Not Given Q12HR TERRE[facility] Metoprolol Tartrate 5 mg 10/21/24 12:55 10/24/24 08:46 Metoprolol Tartrate Inj 5 Mg/5 Ml Vial IV PUSH 5 mg Q12HR TERRELL Administration Nitroglycerin 1 patch 10/22/24 09:55 10/24/24 08:51 Nitroglycerin 0.1 Mg/Hr Patch TRANSDERM 1 patch QAM TERRELL Administration Ondansetron HCl 4 mg 10/18/24 19:08 Ondansetron Inj 4 Mg/2 Ml Vial IV PUSH Q4H PRN Nausea Scopolamine 1 patch 10/22/24 09:00 10/22/24 13:17 Scopolamine 1 Mg Patch TRANSDERM 1 patch Q72HR TERRE[facility] Administration Senna 8.6 mg 10/19/24 09:00 10/21/24 12:14 Sennosides 8.6 Mg Tablet FEED TUBE Not Given BID TERRELL Thiamine HCl 100 mg 10/19/24 09:00 10/21/24 10:08 Thiamine Hcl 100 Mg Tablet FEED TUBE Not Given DAILY [facility] Radiology Results: ITS Impressions Abdomen CT 10/18/24 22:58 IMPRESSION: Findings consistent with (likely) gallstone pancreatitis, as detailed above. Imaging findings are now much clearer after fluid resuscitation. Redemonstration of a percutaneous gastrostomy with its balloon extending to the level of the pylorus, rather than immediately beneath the undersurface of the anterior abdominal wall for which withdrawal of 4.9 cm (with the balloon continuously inflated) is recommended for optimal radiographic placement. Abdomen X-Ray 10/22/24 12:31 IMPRESSION: Decreased air opacification of the colon, when compared with previous days examination. No air is identified within the rectum. Abdomen/Pelvis CT 10/23/24 11:47 IMPRESSION: Findings consistent with patient's known history of acute pancreatitis. The gallbladder is now decompressed. Rather than percutaneous cholecystostomy with cholangiography, would recommend MRCP (in this patient with normal renal function) for further evaluation of the biliary tree. Abdomen Ultrasound 10/24/24 05:44 Impression: Limited exam due to bowel gas shadowing and body habitus. No definite evidence for cholecystitis. No significant abnormality identified. Labs Labs: Laboratory Results - last 24 hr 10/24/24 10/24/2425 04:45 06:50 08:09 WBC 7.5 RBC 3.49 L Hgb 11.3 L Hct 34.5 L MCV 98.9 MCH 32.4 MCHC 32.8 RDW 13.0 Plt Count 167 MPV 12.2 H Immature Gran % (Auto) 1.1 H Neut % (Auto) 60.7 Lymph % (Auto) 21.4 [place] % (Auto) 11.4 H Eos % (Auto) 5.0 H Baso % (Auto) 0.4 Lymph # (Auto) 1.60 [place] # (Auto) 0.9 H Eos # (Auto) 0.4 H Baso # (Auto) 0.0 Abs Immat Gran (auto) 0.08 H Absolute Neuts (auto) 4.5 Absolute Nucleated RBC 0.000 Nucleated RBC % 0.0 Sodium 139 Potassium 4.6 Chloride 106 Carbon Dioxide 21 L Anion Gap 12 BUN 8 L Creatinine 0.47 L Estim Creat Clear Calc 142 Estimated GFR > 60 Glucose 68 POC Capillary Glucose 152 H Calcium 9.3 Magnesium 1.9 Total Bilirubin 0.8 AST 36 ALT 21 Alkaline Phosphatase 85 Total Protein 7.0 Albumin 3.5 10/24/24 12:27 WBC RBC Hgb Hct MCV MCH MCHC RDW Plt Count MPV Immature Gran % (Auto) Neut % (Auto) Lymph % (Auto) [place] % (Auto) Eos % (Auto) Baso % (Auto) Lymph # (Auto) [place] # (Auto) Eos # (Auto) Baso # (Auto) Abs Immat Gran (auto) Absolute Neuts (auto) Absolute Nucleated RBC Nucleated RBC % Sodium Potassium Chloride Carbon Dioxide Anion Gap BUN Creatinine Estim Creat Clear Calc Estimated GFR Glucose POC Capillary Glucose 97 Calcium Magnesium Total Bilirubin AST ALT Alkaline Phosphatase Total Protein Albumin Quality VTE Prophylaxis VTE prophylaxis: mechanical ordered
[2024-10-24] MEDS: LACTATED RINGERS 1,000 ML 60 ML IV CONT (16:18)
[2024-10-24 19:48] LABS: Glucose Point of Care 88 mg/dl (65-105)
[2024-10-25] VITALS (18 sets, daily range): BP systolic 143–191; BP diastolic 71–94; PULSE 86–127; RESP 16–20; TEMP 36.4–37.9; O2SAT 90–98
[2024-10-25 00:18] LABS: Glucose Point of Care 107 mg/dl (65-105)
[2024-10-25] MEDS: metroNIDAZOLE 500 MG/ISO 100ML 500 MG/100 ML BAG 100 MG IVPB ×3 (05:31→22:06)
[2024-10-25] MEDS: LACTATED RINGERS 1,000 ML 60 ML IV CONT (05:31)
[2024-10-25 05:33] LABS: Basophils Percent Auto 0.2 % (0.2-1.2); Eosinophils Absolute Auto 0.3 K/mm3 (0-0.3); Eosinophils Percent Auto 5.9 % (0-4.4); Hematocrit 34.8 % (42.0-52.0); Hemoglobin 11.2 g/dL (14.0-18.0); Immature Granulocyte Absolute 0.01 K/mm3 (0.00-0.031); Immature Granulocyte Percent A 0.2 % (0-0.5); Lymphocytes Absolute Auto 1.29 K/mm3 (0.9-3.2); Mean Corpuscular HGB Conc 32.2 g/dl (32-36); Mean Corpuscular Hemoglobin 31.8 pg (26-34); Mean Corpuscular Volume 98.9 fl (80-100); Mean Platelet Volume 12.1 fl (7.4-10.4); Monocytes Absolute Auto 0.8 K/mm3 (0.1-0.6); Monocytes Percent Auto 14.6 % (2.6-8.5); Neutrophils Absolute Auto 3.2 K/mm3 (1.3-6.7); Neutrophils Percent Auto 56.1 % (45.5-73.1); Platelet Count Result 185 k/mm3 (150-375); Red Blood Count 3.52 M/mm3 (4.6-6.20); Red Cell Distribution Width 13.1 % (11.5-14.5); White Blood Count 5.6 K/mm3 (4.5-10.0)
[2024-10-25 05:42] LABS: Alanine Aminotransferase 24 U/L (6-50); Albumin Level 3.6 g/dL (3.5-5.1); Alkaline Phosphatase 81 U/L (38-126); Anion Gap 10 mmol/L (4-12); Aspartate Amino Transferase 33 U/L (17-59); Bilirubin,Total 0.5 mg/dL (0.2-1.3); Blood Urea Nitrogen 3 mg/dL (9-20); Calcium 9.5 mg/dL (8.4-10.2); Carbon Dioxide 26 mmol/L (22-30); Chloride 102 mmol/L (98-107); Estimated CRCL calculation 137 ml/min; Estimated Glomerular Filt Rate > 60; Glucose 94 mg/dL (65-110); Magnesium 1.7 mg/dL (1.6-2.3); Potassium 3.3 mmol/L (3.4-5.0); Sodium 138 mmol/L (137-145)
[2024-10-25] MEDS: hydrALAZINE HCL 20 MG/ML VIAL 10 MG IV PUSH (06:52)
--- NOTE | 2024-10-25 07:50 | PC.NURSE ---
Spoke with Dr. Lester regarding clarification of tube feeding orders and MRCP. New order to make pt NPO until after MRCP. Once MRCP is completed then may increase tube feeding rate to 20ml/hr
[2024-10-25] MEDS: METOPROLOL TARTRATE INJ 5 MG/5 ML VIAL IV PUSH ×2 (07:59→20:47)
[2024-10-25] MEDS: NITROGLYCERIN 0.1 MG/HR PATCH 1 PATCH TRANSDERM (07:59)
[2024-10-25] MEDS: ENOXAPARIN 40 MG/0.4 ML SYRINGE SUB-Q (08:05)
[2024-10-25] MEDS: SODIUM CHLORIDE 0.9% IVPB ×2 (09:33→22:06)
[2024-10-25] MEDS: LACOSAMIDE IVPB ×2 (09:33→22:06)
[2024-10-25] MEDS: levETIRAcetam 1000MG/NACL100ML 1,000 MG/100 ML BAG 400 MG IVPB ×4 (09:36→20:51)
[2024-10-25] MEDS: SCOPOLAMINE 1 MG PATCH 1 PATCH TRANSDERM (09:40)
--- NOTE | 2024-10-25 09:56 | P.PNGI_ITS ---
Progress Note: A&P Assessment and Plan (1) Acute pancreatitis: Code(s): K85.90 - Acute pancreatitis without necrosis or infection, unspecified Status: Acute Assessment and Plan: With the acute pancreatitis now resolved, the patient is tolerating the re- initiation of tube feeds at a minimal rate of 10 cc/hour since yesterday. Today, the rate will be increased to 20 cc/hour. As the gallbladder was found to be collapsed, a cholecystostomy was not feasible. Therefore, obtaining an MRCP is imperative to visualize the common bile duct and exclude choledocholithiasis. We anticipate that the patient's inability to cooperate with breath-holding will significantly limit the quality of this examination. Despite this, the patient's overall progress suggests that discharge may be anticipated. Subjective Date/time seen: 10/25/24 09:56 Interval history: The patient tolerated the initial dose of tube feedings at 10 cc/hour, no further distension, minimal residuals. Exam Narrative: Abdomen: Unchanged fr Objective Data Vital Signs Vital Signs: Vital Signs - 24 hr 10/24/24 10:00 10/24/24 11:22 10/24/24 12:00 Temperature 99.3 F Pulse Rate 87 91 91 Respiratory Rate 18 Blood Pressure 152/82 H Pulse Oximetry 90 Oxygen Delivery Oxygen Flow Rate Fraction of Inspired Oxygen 10/24/24 14:00 10/24/24 15:20 10/24/24 16:00 Temperature 99.2 F Pulse Rate 93 96 Respiratory Rate 20 Blood Pressure 155/83 H Pulse Oximetry 96 98 Oxygen Delivery High Flow Therapy with Tr Oxygen Flow Rate 25 Fraction of Inspired Oxygen 10/24/24 16:00 10/24/24 18:00 10/24/24 20:00 Temperature Pulse Rate 94 95 89 Respiratory Rate Blood Pressure Pulse Oximetry Oxygen Delivery Oxygen Flow Rate Fraction of Inspired Oxygen 10/24/24 20:27 10/24/24 20:36 10/24/24 22:00 Temperature 98.7 F Pulse Rate 99 93 90 Respiratory Rate 18 Blood Pressure 167/78 H Pulse Oximetry 95 Oxygen Delivery Oxygen Flow Rate Fraction of Inspired Oxygen 10/25/24 00:00 10/25/24 00:07 10/25/24 02:00 Temperature 98.9 F Pulse Rate 96 95 91 Respiratory Rate 20 Blood Pressure 152/75 H Pulse Oximetry 90 Oxygen Delivery Oxygen Flow Rate Fraction of Inspired Oxygen 10/25/24 04:00 10/25/24 04:34 10/25/24 06:00 Temperature 98.8 F Pulse Rate 101 H 86 94 Respiratory Rate 20 Blood Pressure 177/85 H Pulse Oximetry 95 Oxygen Delivery Oxygen Flow Rate Fraction of Inspired Oxygen 10/25/24 06:40 10/25/24 07:26 10/25/24 07:52 Temperature 98.4 F Pulse Rate 127 H Respiratory Rate 18 Blood Pressure 191/83 H 150/71 H Pulse Oximetry 96 96 Oxygen Delivery High Flow Therapy with Tr Oxygen Flow Rate 25 Fraction of Inspired Oxygen 10/25/24 07:59 Temperature Pulse Rate 121 H Respiratory Rate Blood Pressure Pulse Oximetry Oxygen Delivery Oxygen Flow Rate Fraction of Inspired Oxygen Intake/Output Intake/Output: Intake & Output 10/22/24 10/23/24 10/24/24 10/25/24 23:59 23:59 23:59 23:59 Intake Total 1546 2589 1750 1186 Output Total 1400 1025 3100 1150 Balance 146 1564 -1350 36 Meds/Results Medications: Active Medications Generic Name Dose Route Start Last Admin Trade Name Freq PRN Reason Stop Dose Admin Acetaminophen 325 mg 10/21/24 12:12 10/23/24 20:56 Acetaminophen 325 Mg Suppository RECTAL 325 mg Q4H PRN Administration Mild Pain (1-3) or Fever Albuterol/Ipratropium 3 ml 10/19/24 00:22 Ipratropium 0.5 Mg/Albuterol Sulfate 2.5 Mg Ampul.Neb 3 Ml INHALATION Q6HRT PRN Shortness Of Breath Bisacodyl 10 mg 10/19/24 00:22 Bisacodyl 10 Mg Suppository RECTAL DAILY PRN Constipation Clobazam 10 mg 10/19/24 09:00 10/21/24 10:07 Clobazam (*Crx) 10 Mg Tablet FEED TUBE Not Given DAILY [facility] Dextrose 12.5 gm 10/20/24 20:45 10/24/24 06:05 Dextrose 50% 25 Gm/50 Ml Syringe IV PUSH 12.5 gm PRN PRN Administration Hypoglycemia Protocol Enoxaparin Sodium 40 mg 10/25/24 09:00 10/25/24 08:05 Enoxaparin 40 Mg/0.4 Ml Syringe SUB-Q 40 mg DAILY [facility] Administration Folic Acid 1 mg 10/19/24 09:00 10/21/24 10:07 Folic Acid 1 Mg Tablet FEED TUBE Not Given DAILY [facility] Glucose 15 gm 10/20/24 20:45 Glucose Oral Gel 15 Gm Of Glucse In 37.5 Gm Tube PO PRN PRN Hypoglycemia Protocol Glycopyrrolate 2 mg 10/19/24 00:50 10/21/24 12:14 Glycopyrrolate 1 Mg Tablet FEED TUBE Not Given Q8HR [facility] Hydralazine HCl 10 mg 10/22/24 11:45 10/25/24 06:52 Hydralazine Hcl 20 Mg/Ml Vial IV PUSH 10 mg Q6H PRN Administration Blood Pressure -systolic>160 Hydromorphone HCl 0.5 mg 10/18/24 19:08 10/24/24 18:00 Hydromorphone Hcl Inj (*Crx) 2 Mg/Ml Vial IV PUSH 0.5 mg Q4H PRN Administration Pain Rated 7-10 Lactated Ringer's 1,000 mls @ 60 mls/hr 10/19/24 00:05 10/25/24 05:31 Lr - Lactated Ringers Iv IV CONT 60 mls/hr .[id number] [facility] Administration Dextrose 1,000 mls @ 100 mls/hr 10/20/24 20:45 Dextrose 5% 1,000 Ml IVPB PRN PRN Hypoglycemia Protocol Levetiracetam 1,000 mg in 100 mls @ 400 mls/hr 10/21/24 12:46 10/25/24 09:36 Keppra Iv IVPB 400 mls/hr Q12HR [facility] Administration Levetiracetam 1,000 mg in 100 mls @ 400 mls/hr 10/21/24 12:45 10/25/24 09:36 Keppra Iv IVPB 400 mls/hr Q12HR [facility] Administration Lacosamide 250 mg/ Sodium 100 mls @ 200 mls/hr 10/22/24 11:00 10/25/24 09:33 Chloride IVPB 200 mls/hr Q12HR [facility] Administration Levofloxacin/Dextrose 750 mg in 150 mls @ 100 mls/hr 10/24/24 12:00 10/24/24 11:48 Levaquin 750 Mg/D5w 150 Ml IVPB 100 mls/hr Q24H [facility] Administration Metronidazole 500 mg in 100 mls @ 100 mls/hr 10/24/24 14:00 10/25/24 06:35 Flagyl 500 Mg/Iso Soln 100 Ml IVPB Infused Q8HR [facility] Infusion Lacosamide 200 mg 10/19/24 01:10 10/21/24 12:14 Lacosamide (*Crx) 200 Mg Tablet FEED TUBE Not Given Q12HR [facility] Lacosamide 50 mg 10/20/24 21:00 10/21/24 12:14 Lacosamide (*Crx) 50 Mg Tablet PO Not Given Q12HR [facility] Lorazepam 2 mg 10/19/24 10:34 Lorazepam Inj (*Crx) 2 Mg/Ml Vial IV PUSH Q4HR PRN Seizure Activity Magnesium Hydroxide 30 ml 10/19/24 00:22 Magnesium Hydroxide Susp 30 Ml Udc PO HS PRN Constipation Metoclopramide HCl 10 mg 10/19/24 09:00 Metoclopramide Hcl 10 Mg Tablet FEED TUBE TID [facility] Metoclopramide HCl 5 mg 10/22/24 14:19 Metoclopramide Hcl Inj 10 Mg/2 Ml Vial IV PUSH Q6HR PRN Vomiting Metoprolol Tartrate 25 mg 10/19/24 00:25 10/21/24 10:08 Metoprolol Tartrate 25 Mg Tablet FEED TUBE Not Given Q12HR [facility] Metoprolol Tartrate 5 mg 10/21/24 12:55 10/25/24 07:59 Metoprolol Tartrate Inj 5 Mg/5 Ml Vial IV PUSH 5 mg Q12HR [facility] Administration Nitroglycerin 1 patch 10/22/24 09:55 10/25/24 07:59 Nitroglycerin 0.1 Mg/Hr Patch TRANSDERM 1 patch QAM [facility] Administration Ondansetron HCl 4 mg 10/18/24 19:08 Ondansetron Inj 4 Mg/2 Ml Vial IV PUSH Q4H PRN Nausea Scopolamine 1 patch 10/22/24 09:00 10/25/24 09:40 Scopolamine 1 Mg Patch TRANSDERM 1 patch Q72HR [facility] Administration Senna 8.6 mg 10/19/24 09:00 10/21/24 12:14 Sennosides 8.6 Mg Tablet FEED TUBE Not Given BID [facility] Thiamine HCl 100 mg 10/19/24 09:00 10/21/24 10:08 Thiamine Hcl 100 Mg Tablet FEED TUBE Not Given DAILY [facility] Radiology Results: ITS Impressions Abdomen CT 10/18/24 22:58 IMPRESSION: Findings consistent with (likely) gallstone pancreatitis, as detailed above. Imaging findings are now much clearer after fluid resuscitation. Redemonstration of a percutaneous gastrostomy with its balloon extending to the level of the pylorus, rather than immediately beneath the undersurface of the anterior abdominal wall for which withdrawal of 4.9 cm (with the balloon continuously inflated) is recommended for optimal radiographic placement. Abdomen X-Ray 10/22/24 12:31 IMPRESSION: Decreased air opacification of the colon, when compared with previous days examination. No air is identified within the rectum. Abdomen/Pelvis CT 10/23/24 11:47 IMPRESSION: Findings consistent with patient's known history of acute pancreatitis. The gallbladder is now decompressed. Rather than percutaneous cholecystostomy with cholangiography, would recommend MRCP (in this patient with normal renal function) for further evaluation of the biliary tree. Abdomen Ultrasound 10/24/24 05:44 Impression: Limited exam due to bowel gas shadowing and body habitus. No definite evidence for cholecystitis. No significant abnormality identified. Labs Labs: Laboratory Results - last 24 hr 10/24/24 10/24/24 10/25/24 12:27 19:45 00:13 WBC RBC Hgb Hct MCV MCH MCHC RDW Plt Count MPV Immature Gran % (Auto) Neut % (Auto) Lymph % (Auto) [place] % (Auto) Eos % (Auto) Baso % (Auto) Lymph # (Auto) [place] # (Auto) Eos # (Auto) Baso # (Auto) Abs Immat Gran (auto) Absolute Neuts (auto) Absolute Nucleated RBC Nucleated RBC % Sodium Potassium Chloride Carbon Dioxide Anion Gap BUN Creatinine Estim Creat Clear Calc Estimated GFR Glucose POC Capillary Glucose 97 88 107 H Calcium Magnesium Total Bilirubin AST ALT Alkaline Phosphatase Total Protein Albumin 10/25/24 04:48 WBC 5.6 RBC 3.52 L Hgb 11.2 L Hct 34.8 L MCV 98.9 MCH 31.8 MCHC 32.2 RDW 13.1 Plt Count 185 MPV 12.1 H Immature Gran % (Auto) 0.2 Neut % (Auto) 56.1 Lymph % (Auto) 23.0 [place] % (Auto) 14.6 H Eos % (Auto) 5.9 H Baso % (Auto) 0.2 Lymph # (Auto) 1.29 [place] # (Auto) 0.8 H Eos # (Auto) 0.3 Baso # (Auto) 0.0 Abs Immat Gran (auto) 0.01 Absolute Neuts (auto) 3.2 Absolute Nucleated RBC 0.000 Nucleated RBC % 0.0 Sodium 138 Potassium 3.3 L Chloride 102 Carbon Dioxide 26 Anion Gap 10 BUN 3 L D Creatinine 0.49 L Estim Creat Clear Calc 137 Estimated GFR > 60 Glucose 94 POC Capillary Glucose Calcium 9.5 Magnesium 1.7 Total Bilirubin 0.5 AST 33 ALT 24 Alkaline Phosphatase 81 Total Protein 7.0 Albumin 3.6
[2024-10-25 11:15] LABS: Glucose Point of Care 85 mg/dl (65-105)
[2024-10-25] MEDS: levoFLOXacin 750 MG/D5W 150 ML 750 MG/150 ML BAG 100 MG IVPB (12:00)
[2024-10-25] MEDS: ACETAMINOPHEN 325 MG SUPPOSITORY RECTAL (12:03)
--- NOTE | 2024-10-25 12:15 | PM.PNGS ---
Progress Note: A&P Assessment and Plan (1) Cholecystitis: Code(s): K81.9 - Cholecystitis, unspecified Status: Acute Assessment and Plan: Continue broad spectrum IV antibiotics. Overall not a good surgical candidate. No evidence to suggest acute cholecystitis. No need for cholecystostomy tube or any other surgical intervention at this time. We will sign off at this time. Call with any surgical question or concerns. (2) Acute pancreatitis: Code(s): K85.90 - Acute pancreatitis without necrosis or infection, unspecified Status: Acute Assessment and Plan: Continue medical management. (3) Severe sepsis: Code(s): A41.9 - Sepsis, unspecified organism; R65.20 - Severe sepsis without septic shock Status: Acute (4) Chronic hypoxemic respiratory failure: Code(s): J96.11 - Chronic respiratory failure with hypoxia Status: Chronic (5) Epilepsy: Code(s): G40.909 - Epilepsy, unspecified, not intractable, without status epilepticus Status: Acute (6) Cerebrovascular accident: Code(s): I63.9 - Cerebral infarction, unspecified Status: Chronic Subjective Subjective Date/Time Seen: 10/25/24 12:15 Interval history: Patient denies having any RUQ pain today, but now notes having LUQ and epigastric pain that extends towards g-tube. Patient endorses vomiting last night, but this is uncertain as patient is not the best historian. Patient reports having regular bowel movements. Per GI, tube feeding rate will be advanced from 10 cc/hr to 20 cc/hr today. Exam GI: Inspection: distended Auscultation: normal bowel sounds and abnormal bowel sounds (hypoactive bowel sounds) Other: G-tube in place. Mildly distended abdomen. Tenderness to palpation of left side abdomen. Objective Data Vital Signs Vital Signs: Vital Signs - 24 hr 10/24/24 14:00 10/24/24 15:20 10/24/24 16:00 Temperature 99.2 F Pulse Rate 93 96 Respiratory Rate 20 Blood Pressure 155/83 H Pulse Oximetry 96 98 Oxygen Delivery High Flow Therapy with Tr Oxygen Flow Rate 25 Fraction of Inspired Oxygen 10/24/24 16:00 10/24/24 18:00 10/24/24 20:00 Temperature Pulse Rate 94 95 89 Respiratory Rate Blood Pressure Pulse Oximetry Oxygen Delivery Oxygen Flow Rate Fraction of Inspired Oxygen 10/24/24 20:27 10/24/24 20:36 10/24/24 22:00 Temperature 98.7 F Pulse Rate 99 93 90 Respiratory Rate 18 Blood Pressure 167/78 H Pulse Oximetry 95 Oxygen Delivery Oxygen Flow Rate Fraction of Inspired Oxygen 10/25/24 00:00 10/25/24 00:07 10/25/24 02:00 Temperature 98.9 F Pulse Rate 96 95 91 Respiratory Rate 20 Blood Pressure 152/75 H Pulse Oximetry 90 Oxygen Delivery Oxygen Flow Rate Fraction of Inspired Oxygen 10/25/24 04:00 10/25/24 04:34 10/25/24 06:00 Temperature 98.8 F Pulse Rate 101 H 86 94 Respiratory Rate 20 Blood Pressure 177/85 H Pulse Oximetry 95 Oxygen Delivery Oxygen Flow Rate Fraction of Inspired Oxygen 10/25/24 06:40 10/25/24 07:26 10/25/24 07:52 Temperature 98.4 F Pulse Rate 127 H Respiratory Rate 18 Blood Pressure 191/83 H 150/71 H Pulse Oximetry 96 96 Oxygen Delivery High Flow Therapy with Tr Oxygen Flow Rate 25 Fraction of Inspired Oxygen 10/25/24 07:59 10/25/24 08:00 10/25/24 10:00 Temperature Pulse Rate 121 H 118 H 105 H Respiratory Rate Blood Pressure Pulse Oximetry Oxygen Delivery Oxygen Flow Rate Fraction of Inspired Oxygen Intake/Output Intake/Output: Intake & Output 10/22/24 10/23/24 10/24/24 10/25/24 23:59 23:59 23:59 23:59 Intake Total 1546 2589 1900 1486 Output Total 1400 1025 3100 1150 Balance 146 1564 -1200 336 Meds/Results Medications: Active Medications Generic Name Dose Route Start Last Admin Trade Name Freq PRN Reason Stop Dose Admin Acetaminophen 325 mg 10/21/24 12:12 10/25/24 12:03 Acetaminophen 325 Mg Suppository RECTAL 325 mg Q4H PRN Administration Mild Pain (1-3) or Fever Albuterol/Ipratropium 3 ml 10/19/24 00:22 Ipratropium 0.5 Mg/Albuterol Sulfate 2.5 Mg Ampul.Neb 3 Ml INHALATION Q6HRT PRN Shortness Of Breath Bisacodyl 10 mg 10/19/24 00:22 Bisacodyl 10 Mg Suppository RECTAL DAILY PRN Constipation Clobazam 10 mg 05/23/25 09:00 10/21/24 10:07 Clobazam (*Crx) 10 Mg Tablet FEED TUBE Not Given DAILY [facility] Dextrose 12.5 gm 10/20/24 20:45 10/24/24 06:05 Dextrose 50% 25 Gm/50 Ml Syringe IV PUSH 12.5 gm PRN PRN Administration Hypoglycemia Protocol Enoxaparin Sodium 40 mg 10/25/24 09:00 10/25/24 08:05 Enoxaparin 40 Mg/0.4 Ml Syringe SUB-Q 40 mg DAILY [facility] Administration Folic Acid 1 mg 10/19/24 09:00 10/21/24 10:07 Folic Acid 1 Mg Tablet FEED TUBE Not Given DAILY [facility] Glucose 15 gm 10/20/24 20:45 Glucose Oral Gel 15 Gm Of Glucse In 37.5 Gm Tube PO PRN PRN Hypoglycemia Protocol Glycopyrrolate 2 mg 10/19/24 00:50 10/21/24 12:14 Glycopyrrolate 1 Mg Tablet FEED TUBE Not Given Q8HR [facility] Hydralazine HCl 10 mg 10/22/24 11:45 10/25/24 06:52 Hydralazine Hcl 20 Mg/Ml Vial IV PUSH 10 mg Q6H PRN Administration Blood Pressure -systolic>160 Hydromorphone HCl 0.5 mg 10/18/24 19:08 10/24/24 18:00 Hydromorphone Hcl Inj (*Crx) 2 Mg/Ml Vial IV PUSH 0.5 mg Q4H PRN Administration Pain Rated 7-10 Lactated Ringer's 1,000 mls @ 60 mls/hr 10/19/24 00:05 10/25/24 05:31 Lr - Lactated Ringers Iv IV CONT 60 mls/hr .[id number] [facility] Administration Dextrose 1,000 mls @ 100 mls/hr 10/20/24 20:45 Dextrose 5% 1,000 Ml IVPB PRN PRN Hypoglycemia Protocol Levetiracetam 1,000 mg in 100 mls @ 400 mls/hr 10/21/24 12:46 10/25/24 11:22 Keppra Iv IVPB Infused Q12HR [facility] Infusion Levetiracetam 1,000 mg in 100 mls @ 400 mls/hr 10/21/24 12:45 10/25/24 11:22 Keppra Iv IVPB Infused Q12HR [facility] Infusion Lacosamide 250 mg/ Sodium 100 mls @ 200 mls/hr 10/22/24 11:00 10/25/24 11:22 Chloride IVPB Infused Q12HR [facility] Infusion Levofloxacin/Dextrose 750 mg in 150 mls @ 100 mls/hr 10/24/24 12:00 10/25/24 12:00 Levaquin 750 Mg/D5w 150 Ml IVPB 100 mls/hr Q24H [facility] Administration Metronidazole 500 mg in 100 mls @ 100 mls/hr 10/24/24 14:00 10/25/24 06:35 Flagyl 500 Mg/Iso Soln 100 Ml IVPB Infused Q8HR [facility] Infusion Lacosamide 200 mg 10/19/24 01:10 10/21/24 12:14 Lacosamide (*Crx) 200 Mg Tablet FEED TUBE Not Given Q12HR [facility] Lacosamide 50 mg 10/20/24 21:00 10/21/24 12:14 Lacosamide (*Crx) 50 Mg Tablet PO Not Given Q12HR [facility] Lorazepam 2 mg 10/19/24 10:34 Lorazepam Inj (*Crx) 2 Mg/Ml Vial IV PUSH Q4HR PRN Seizure Activity Magnesium Hydroxide 30 ml 10/19/24 00:22 Magnesium Hydroxide Susp 30 Ml Udc PO HS PRN Constipation Metoclopramide HCl 10 mg 10/19/24 09:00 Metoclopramide Hcl 10 Mg Tablet FEED TUBE TID [facility] Metoclopramide HCl 5 mg 10/22/24 14:19 Metoclopramide Hcl Inj 10 Mg/2 Ml Vial IV PUSH Q6HR PRN Vomiting Metoprolol Tartrate 25 mg 10/19/24 00:25 10/21/24 10:08 Metoprolol Tartrate 25 Mg Tablet FEED TUBE Not Given Q12HR [facility] Metoprolol Tartrate 5 mg 10/21/24 12:55 10/25/24 07:59 Metoprolol Tartrate Inj 5 Mg/5 Ml Vial IV PUSH 5 mg Q12HR [facility] Administration Nitroglycerin 1 patch 10/22/24 09:55 10/25/24 07:59 Nitroglycerin 0.1 Mg/Hr Patch TRANSDERM 1 patch QAM [facility] Administration Ondansetron HCl 4 mg 10/18/24 19:08 Ondansetron Inj 4 Mg/2 Ml Vial IV PUSH Q4H PRN Nausea Scopolamine 1 patch 10/22/24 09:00 10/25/24 09:40 Scopolamine 1 Mg Patch TRANSDERM 1 patch Q72HR [facility] Administration Senna 8.6 mg 10/19/24 09:00 10/21/24 12:14 Sennosides 8.6 Mg Tablet FEED TUBE Not Given BID [facility] Thiamine HCl 100 mg 10/19/24 09:00 10/21/24 10:08 Thiamine Hcl 100 Mg Tablet FEED TUBE Not Given DAILY [facility] Radiology Results: ITS Impressions Abdomen CT 10/18/24 22:58 IMPRESSION: Findings consistent with (likely) gallstone pancreatitis, as detailed above. Imaging findings are now much clearer after fluid resuscitation. Redemonstration of a percutaneous gastrostomy with its balloon extending to the level of the pylorus, rather than immediately beneath the undersurface of the anterior abdominal wall for which withdrawal of 4.9 cm (with the balloon continuously inflated) is recommended for optimal radiographic placement. Abdomen X-Ray 10/22/24 12:31 IMPRESSION: Decreased air opacification of the colon, when compared with previous days examination. No air is identified within the rectum. Abdomen/Pelvis CT 10/23/24 11:47 IMPRESSION: Findings consistent with patient's known history of acute pancreatitis. The gallbladder is now decompressed. Rather than percutaneous cholecystostomy with cholangiography, would recommend MRCP (in this patient with normal renal function) for further evaluation of the biliary tree. Abdomen Ultrasound 10/24/24 05:44 Impression: Limited exam due to bowel gas shadowing and body habitus. No definite evidence for cholecystitis. No significant abnormality identified. Labs Labs: Laboratory Results - last 24 hr 10/24/24 10/24/24 10/25/24 12:27 19:45 00:13 WBC RBC Hgb Hct MCV MCH MCHC RDW Plt Count MPV Immature Gran % (Auto) Neut % (Auto) Lymph % (Auto) [place] % (Auto) Eos % (Auto) Baso % (Auto) Lymph # (Auto) [place] # (Auto) Eos # (Auto) Baso # (Auto) Abs Immat Gran (auto) Absolute Neuts (auto) Absolute Nucleated RBC Nucleated RBC % Sodium Potassium Chloride Carbon Dioxide Anion Gap BUN Creatinine Estim Creat Clear Calc Estimated GFR Glucose POC Capillary Glucose 97 88 107 H Calcium Magnesium Total Bilirubin AST ALT Alkaline Phosphatase Total Protein Albumin 10/25/24 10/25/24 04:48 11:13 WBC 5.6 RBC 3.52 L Hgb 11.2 L Hct 34.8 L MCV 98.9 MCH 31.8 MCHC 32.2 RDW 13.1 Plt Count 185 MPV 12.1 H Immature Gran % (Auto) 0.2 Neut % (Auto) 56.1 Lymph % (Auto) 23.0 [place] % (Auto) 14.6 H Eos % (Auto) 5.9 H Baso % (Auto) 0.2 Lymph # (Auto) 1.29 [place] # (Auto) 0.8 H Eos # (Auto) 0.3 Baso # (Auto) 0.0 Abs Immat Gran (auto) 0.01 Absolute Neuts (auto) 3.2 Absolute Nucleated RBC 0.000 Nucleated RBC % 0.0 Sodium 138 Potassium 3.3 L Chloride 102 Carbon Dioxide 26 Anion Gap 10 BUN 3 L D Creatinine 0.49 L Estim Creat Clear Calc 137 Estimated GFR > 60 Glucose 94 POC Capillary Glucose 85 Calcium 9.5 Magnesium 1.7 Total Bilirubin 0.5 AST 33 ALT 24 Alkaline Phosphatase 81 Total Protein 7.0 Albumin 3.6
--- NOTE | 2024-10-25 16:43 | P.PNIM_ITS ---
Progress Note: A&P Assessment and Plan (1) Cholecystitis: Code(s): K81.9 - Cholecystitis, unspecified Status: Acute Assessment and Plan: -Nausea, vomiting, abdominal distension -CT findings of markedly distended gallbladder with layering stones and surrounding free fluid -Lipase highly elevated raising concern for choledocholithiasis with acute pancreatitis -IV Zosyn started in ER -NPO status (except vital medications) -PRN pain and nausea medication -GI and General Surgery consulted by ER provider -MRCP ordered for tomorrow -Hold Eliquis, SCDs for VTE prophylaxis -Morning labs ordered -IV fluids given for elevated lipase and highly elevated lactic acid -Ordered STAT procalcitonin, ESR, CRP with daily recheck x3 Surgery noted no intervention needed at this time and monitor on medical management -GI tending towards no MRCP, if that is the case we will start discharge planning on PO antibiotics (2) Severe sepsis: Code(s): A41.9 - Sepsis, unspecified organism; R65.20 - Severe sepsis without septic shock Status: Acute Assessment and Plan: Due to cholecystitis, see above (3) Pancreatitis: Code(s): K85.90 - Acute pancreatitis without necrosis or infection, unspecified Status: Acute Assessment and Plan: See above, concern for choledocholithiasis started on tueb feeding 20ml/hr, monitor (4) Malfunction of gastrostomy tube: Code(s): K94.23 - Gastrostomy malfunction Status: Acute Assessment and Plan: -CT abdomen pelvis showed G-tube malpositioned too deep within the stomach -This was pulled back by ER provider continue tube feeding (5) History of multiple strokes: Code(s): Z86.73 - Personal history of transient ischemic attack (TIA), and cerebral infarction without residual deficits Status: Chronic Assessment and Plan: -Non-verbal with trach and G-tube chronically due to prior CVAs with significant residual deficits (6) Epilepsy: Code(s): G40.909 - Epilepsy, unspecified, not intractable, without status epilepticus Status: Acute Assessment and Plan: -History of epilepsy, on multiple medications which will be continued Dose adjustment will be done as per neurologist request. Will taper Depakote from t.i.d. to b.i.d. to once a day and will be totally discontinued from Tuesday. Vimpat will be increased from 200 mg p.o. b.i.d. to 250 mg p.o. b.i.d.. And Keppra will be increased from 17 50 mg p.o. b.i.d. to 2 g p.o. b.i.d. (7) Acute lactic acidosis: Code(s): E87.21 - Acute metabolic acidosis Status: Acute Assessment and Plan: -Likely due to severe sepsis related to acute cholecystitis -Improvement on recheck after additional IV fluids patient noted to be lethargic adn nonverbal at baseline Plan DVT prophylaxis on Sq lovenox Subjective Date/time seen: 10/25/24 16:43 Interval history: COmfortable at bedside, increased tube feeding to 20cc/hr per GI Review of Systems Review of Systems: ROS unobtainable: Yes unobtainable due to mental status Exam Narrative: GENERAL: Chronically ill-appearing, well-nourished, and in no acute distress. HEAD: Normocephalic, atraumatic. EYES: PERRL and EOMI. NECK: Supple. Tracheostomy with no significant plugging of the tube. CHEST: Clear to auscultation. No respiratory distress. HEART: Regular rate and rhythm. Normal peripheral pulses. ABDOMEN: Mildly distended abdomen without significant tenderness. Peg site appears normal. Normal bowel sounds. EXTREMITIES: Right lower extremity in cushion boot. Left AKA. NEURO: Awake, alert, and at neurologic baseline. Objective Data Vital Signs Vital Signs: Vital Signs - 24 hr 10/24/24 18:00 10/24/24 20:00 10/24/24 20:27 Temperature 98.7 F Pulse Rate 95 89 99 Respiratory Rate 18 Blood Pressure 167/78 H Pulse Oximetry 95 Oxygen Delivery Oxygen Flow Rate Fraction of Inspired Oxygen 10/24/24 20:36 10/24/24 22:00 10/25/24 00:00 Temperature Pulse Rate 93 90 96 Respiratory Rate Blood Pressure Pulse Oximetry Oxygen Delivery Oxygen Flow Rate Fraction of Inspired Oxygen 10/25/24 00:07 10/25/24 02:00 10/25/24 04:00 Temperature 98.9 F Pulse Rate 95 91 101 H Respiratory Rate 20 Blood Pressure 152/75 H Pulse Oximetry 90 Oxygen Delivery Oxygen Flow Rate Fraction of Inspired Oxygen 10/25/24 04:34 10/25/24 06:00 10/25/24 06:40 Temperature 98.8 F Pulse Rate 86 94 Respiratory Rate 20 Blood Pressure 177/85 H 191/83 H Pulse Oximetry 95 Oxygen Delivery Oxygen Flow Rate Fraction of Inspired Oxygen 10/25/24 07:26 10/25/24 07:52 10/25/24 07:59 Temperature 98.4 F Pulse Rate 127 H 121 H Respiratory Rate 18 Blood Pressure 150/71 H Pulse Oximetry 96 96 Oxygen Delivery High Flow Therapy with Tr Oxygen Flow Rate 25 Fraction of Inspired Oxygen 10/25/24 08:00 10/25/24 08:00 10/25/24 10:00 Temperature Pulse Rate 118 H 127 H 105 H Respiratory Rate 18 Blood Pressure Pulse Oximetry 96 Oxygen Delivery High Flow Therapy with Tr Oxygen Flow Rate 25 Fraction of Inspired Oxygen 10/25/24 15:39 10/25/24 15:57 Temperature 100.3 F H Pulse Rate 112 H Respiratory Rate 18 Blood Pressure 180/94 H Pulse Oximetry 96 95 Oxygen Delivery High Flow Therapy with Tr Oxygen Flow Rate 25 Fraction of Inspired Oxygen 28 Intake/Output Intake/Output: Intake & Output 10/22/24 10/23/24 10/24/24 10/25/24 23:59 23:59 23:59 23:59 Intake Total 1546 2589 1900 1636 Output Total 1400 1025 3100 2950 Balance 146 7141 -8507 -9566 Meds/Results Medications: Active Medications Generic Name Dose Route Start Last Admin Trade Name Freq PRN Reason Stop Dose Admin Acetaminophen 325 mg 10/21/24 12:12 10/25/24 12:03 Acetaminophen 325 Mg Suppository RECTAL 325 mg Q4H PRN Administration Mild Pain (1-3) or Fever Albuterol/Ipratropium 3 ml 10/19/24 00:22 Ipratropium 0.5 Mg/Albuterol Sulfate 2.5 Mg Ampul.Neb 3 Ml INHALATION Q6HRT PRN Shortness Of Breath Amlodipine Besylate 5 mg 10/25/24 16:45 Amlodipine Besylate 5 Mg Tablet PO DAILY [facility] Atorvastatin Calcium 40 mg 10/25/24 21:00 Atorvastatin 40 Mg Tablet PO HS [facility] Bisacodyl 10 mg 10/19/24 00:22 Bisacodyl 10 Mg Suppository RECTAL DAILY PRN Constipation Clobazam 10 mg 10/19/24 09:00 10/21/24 10:07 Clobazam (*Crx) 10 Mg Tablet FEED TUBE Not Given DAILY [facility] Dextrose 12.5 gm 10/20/24 20:45 10/24/24 06:05 Dextrose 50% 25 Gm/50 Ml Syringe IV PUSH 12.5 gm PRN PRN Administration Hypoglycemia Protocol Enoxaparin Sodium 40 mg 10/25/24 09:00 10/25/24 08:05 Enoxaparin 40 Mg/0.4 Ml Syringe SUB-Q 40 mg DAILY [facility] Administration Finasteride 5 mg 10/26/24 09:00 Finasteride 5 Mg Tablet FEED TUBE DAILY [facility] Folic Acid 1 mg 10/19/24 09:00 10/21/24 10:07 Folic Acid 1 Mg Tablet FEED TUBE Not Given DAILY [facility] Glucose 15 gm 10/20/24 20:45 Glucose Oral Gel 15 Gm Of Glucse In 37.5 Gm Tube PO PRN PRN Hypoglycemia Protocol Glycopyrrolate 2 mg 10/19/24 00:50 10/21/24 12:14 Glycopyrrolate 1 Mg Tablet FEED TUBE Not Given Q8HR [facility] Hydralazine HCl 10 mg 10/22/24 11:45 10/25/24 06:52 Hydralazine Hcl 20 Mg/Ml Vial IV PUSH 10 mg Q6H PRN Administration Blood Pressure -systolic>160 Hydromorphone HCl 0.5 mg 10/18/24 19:08 10/24/24 18:00 Hydromorphone Hcl Inj (*Crx) 2 Mg/Ml Vial IV PUSH 0.5 mg Q4H PRN Administration Pain Rated 7-10 Lactated Ringer's 1,000 mls @ 60 mls/hr 10/19/24 00:05 10/25/24 05:31 Lr - Lactated Ringers Iv IV CONT 60 mls/hr .[id number] [facility] Administration Dextrose 1,000 mls @ 100 mls/hr 10/20/24 20:45 Dextrose 5% 1,000 Ml IVPB PRN PRN Hypoglycemia Protocol Levetiracetam 1,000 mg in 100 mls @ 400 mls/hr 10/21/24 12:46 10/25/24 11:22 Keppra Iv IVPB Infused Q12HR [facility] Infusion Levetiracetam 1,000 mg in 100 mls @ 400 mls/hr 10/21/24 12:45 10/25/24 11:22 Keppra Iv IVPB Infused Q12HR [facility] Infusion Lacosamide 250 mg/ Sodium 100 mls @ 200 mls/hr 10/22/24 11:00 10/25/24 11:22 Chloride IVPB Infused Q12HR [facility] Infusion Levofloxacin/Dextrose 750 mg in 150 mls @ 100 mls/hr 10/24/24 12:00 10/25/24 14:58 Levaquin 750 Mg/D5w 150 Ml IVPB Infused Q24H [facility] Infusion Metronidazole 500 mg in 100 mls @ 100 mls/hr 10/24/24 14:00 10/25/24 14:59 Flagyl 500 Mg/Iso Soln 100 Ml IVPB 100 mls/hr Q8HR [facility] Administration Isosorbide Mononitrate 15 mg 10/26/24 09:00 Isosorbide Mononitrate 15 Mg Tab.Er.24h PO QAM [facility] Lacosamide 200 mg 10/19/24 01:10 10/21/24 12:14 Lacosamide (*Crx) 200 Mg Tablet FEED TUBE Not Given Q12HR [facility] Lacosamide 50 mg 10/20/24 21:00 10/21/24 12:14 Lacosamide (*Crx) 50 Mg Tablet PO Not Given Q12HR [facility] Lorazepam 2 mg 10/19/24 10:34 Lorazepam Inj (*Crx) 2 Mg/Ml Vial IV PUSH Q4HR PRN Seizure Activity Magnesium Hydroxide 30 ml 10/19/24 00:22 Magnesium Hydroxide Susp 30 Ml Udc PO HS PRN Constipation Metoclopramide HCl 10 mg 10/19/24 09:00 Metoclopramide Hcl 10 Mg Tablet FEED TUBE TID [facility] Metoclopramide HCl 5 mg 10/22/24 14:19 Metoclopramide Hcl Inj 10 Mg/2 Ml Vial IV PUSH Q6HR PRN Vomiting Metoprolol Tartrate 25 mg 10/19/24 00:25 10/21/24 10:08 Metoprolol Tartrate 25 Mg Tablet FEED TUBE Not Given Q12HR [facility] Metoprolol Tartrate 5 mg 10/21/24 12:55 10/25/24 07:59 Metoprolol Tartrate Inj 5 Mg/5 Ml Vial IV PUSH 5 mg Q12HR [facility] Administration Nitroglycerin 1 patch 10/22/24 09:55 10/25/24 07:59 Nitroglycerin 0.1 Mg/Hr Patch TRANSDERM 1 patch QAM [facility] Administration Ondansetron HCl 4 mg 10/18/24 19:08 Ondansetron Inj 4 Mg/2 Ml Vial IV PUSH Q4H PRN Nausea Pantoprazole Sodium 40 mg 10/25/24 16:40 Pantoprazole 40 Mg Tablet PO Q12H [facility] Scopolamine 1 patch 10/22/24 09:00 10/25/24 09:40 Scopolamine 1 Mg Patch TRANSDERM 1 patch Q72HR [facility] Administration Senna 8.6 mg 10/19/24 09:00 10/21/24 12:14 Sennosides 8.6 Mg Tablet FEED TUBE Not Given BID [facility] Thiamine HCl 100 mg 10/19/24 09:00 10/21/24 10:08 Thiamine Hcl 100 Mg Tablet FEED TUBE Not Given DAILY [facility] Radiology Results: ITS Impressions Abdomen CT 10/18/24 22:58 IMPRESSION: Findings consistent with (likely) gallstone pancreatitis, as detailed above. Imaging findings are now much clearer after fluid resuscitation. Redemonstration of a percutaneous gastrostomy with its balloon extending to the level of the pylorus, rather than immediately beneath the undersurface of the anterior abdominal wall for which withdrawal of 4.9 cm (with the balloon continuously inflated) is recommended for optimal radiographic placement. Abdomen X-Ray 10/22/24 12:31 IMPRESSION: Decreased air opacification of the colon, when compared with previous days examination. No air is identified within the rectum. Abdomen/Pelvis CT 10/23/24 11:47 IMPRESSION: Findings consistent with patient's known history of acute pancreatitis. The gallbladder is now decompressed. Rather than percutaneous cholecystostomy with cholangiography, would recommend MRCP (in this patient with normal renal function) for further evaluation of the biliary tree. Abdomen Ultrasound 10/24/24 05:44 Impression: Limited exam due to bowel gas shadowing and body habitus. No definite evidence for cholecystitis. No significant abnormality identified. Labs Labs: Laboratory Results - last 24 hr 10/24/24 10/25/24 10/25/24 19:45 00:13 04:48 WBC 5.6 RBC 3.52 L Hgb 11.2 L Hct 34.8 L MCV 98.9 MCH 31.8 MCHC 32.2 RDW 13.1 Plt Count 185 MPV 12.1 H Immature Gran % (Auto) 0.2 Neut % (Auto) 56.1 Lymph % (Auto) 23.0 [place] % (Auto) 14.6 H Eos % (Auto) 5.9 H Baso % (Auto) 0.2 Lymph # (Auto) 1.29 [place] # (Auto) 0.8 H Eos # (Auto) 0.3 Baso # (Auto) 0.0 Abs Immat Gran (auto) 0.01 Absolute Neuts (auto) 3.2 Absolute Nucleated RBC 0.000 Nucleated RBC % 0.0 Sodium 138 Potassium 3.3 L Chloride 102 Carbon Dioxide 26 Anion Gap 10 BUN 3 L D Creatinine 0.49 L Estim Creat Clear Calc 137 Estimated GFR > 60 Glucose 94 POC Capillary Glucose 88 107 H Calcium 9.5 Magnesium 1.7 Total Bilirubin 0.5 AST 33 ALT 24 Alkaline Phosphatase 81 Total Protein 7.0 Albumin 3.6 10/25/24 11:13 WBC RBC Hgb Hct MCV MCH MCHC RDW Plt Count MPV Immature Gran % (Auto) Neut % (Auto) Lymph % (Auto) [place] % (Auto) Eos % (Auto) Baso % (Auto) Lymph # (Auto) [place] # (Auto) Eos # (Auto) Baso # (Auto) Abs Immat Gran (auto) Absolute Neuts (auto) Absolute Nucleated RBC Nucleated RBC % Sodium Potassium Chloride Carbon Dioxide Anion Gap BUN Creatinine Estim Creat Clear Calc Estimated GFR Glucose POC Capillary Glucose 85 Calcium Magnesium Total Bilirubin AST ALT Alkaline Phosphatase Total Protein Albumin Quality VTE Prophylaxis VTE prophylaxis: mechanical ordered
--- NOTE | 2024-10-25 16:59 | PC.NURSE ---
Addendum entered by Bina Godoy RN 10/25/24 17:00: SHARI Forrest notified of transfer Original Note: This patient, Bi Tabor, was transferred to [ [id number]] on 10/25/24 at 1659. Personal belongings sent with patient. Report given to [ALFRED Escalera @ [id number] ]. Appropriate documentation sent with patient.
[2024-10-25] MEDS: ISOSORBIDE DINITRATE 5 MG TABLET FEED TUBE (17:49)
[2024-10-25] MEDS: amLODIPine BESYLATE 5 MG TABLET FEED TUBE (17:49)
[2024-10-25 18:35] LABS: Glucose Point of Care 110 mg/dl (65-105)
[2024-10-25] MEDS: LANSOPRAZOLE ODT 30 MG TAB.RAP.DR FEED TUBE (20:47)
[2024-10-25] MEDS: ATORVASTATIN 40 MG TABLET FEED TUBE (20:47)
[2024-10-25 23:28] LABS: Glucose Point of Care 104 mg/dl (65-105)
[2024-10-26] VITALS (8 sets, daily range): BP systolic 132–177; BP diastolic 83–86; PULSE 82–90; RESP 16–20; TEMP 36–36.3; O2SAT 95–99
[2024-10-26] MEDS: LACTATED RINGERS 1,000 ML 60 ML IV CONT (02:23)
[2024-10-26] MEDS: ONDANSETRON INJ 4 MG/2 ML VIAL IV PUSH (04:42)
[2024-10-26] MEDS: HYDROmorphone HCL INJ (*CRX) 2 MG/ML VIAL 0.5 MG IV PUSH (04:51)
[2024-10-26 05:55] LABS: Glucose Point of Care 119 mg/dl (65-105)
[2024-10-26] MEDS: metroNIDAZOLE 500 MG/ISO 100ML 500 MG/100 ML BAG 100 MG IVPB ×3 (06:05→22:46)
[2024-10-26 06:08] LABS: Basophils Percent Auto 0.4 % (0.2-1.2); Eosinophils Absolute Auto 0.4 K/mm3 (0-0.3); Eosinophils Percent Auto 8.3 % (0-4.4); Hematocrit 33.5 % (42.0-52.0); Immature Granulocyte Absolute 0.01 K/mm3 (0.00-0.031); Immature Granulocyte Percent A 0.2 % (0-0.5); Lymphocytes Absolute Auto 1.43 K/mm3 (0.9-3.2); Lymphocytes Percent Auto 26.8 % (18.3-44.2); Mean Corpuscular HGB Conc 32.8 g/dl (32-36); Mean Corpuscular Hemoglobin 32.4 pg (26-34); Mean Corpuscular Volume 98.5 fl (80-100); Mean Platelet Volume 11.5 fl (7.4-10.4); Monocytes Absolute Auto 0.8 K/mm3 (0.1-0.6); Monocytes Percent Auto 15.6 % (2.6-8.5); Neutrophils Absolute Auto 2.6 K/mm3 (1.3-6.7); Neutrophils Percent Auto 48.7 % (45.5-73.1); Platelet Count Result 195 k/mm3 (150-375); Red Cell Distribution Width 13.2 % (11.5-14.5); White Blood Count 5.3 K/mm3 (4.5-10.0)
[2024-10-26 06:21] LABS: Alanine Aminotransferase 23 U/L (6-50); Albumin Level 3.3 g/dL (3.5-5.1); Alkaline Phosphatase 80 U/L (38-126); Anion Gap 6 mmol/L (4-12); Aspartate Amino Transferase 28 U/L (17-59); Bilirubin,Total 0.3 mg/dL (0.2-1.3); Blood Urea Nitrogen 3 mg/dL (9-20); Calcium 9.4 mg/dL (8.4-10.2); Carbon Dioxide 25 mmol/L (22-30); Chloride 107 mmol/L (98-107); Estimated CRCL calculation 152 ml/min; Estimated Glomerular Filt Rate > 60; Glucose 125 mg/dL (65-110); Magnesium 1.7 mg/dL (1.6-2.3); Potassium 3.3 mmol/L (3.4-5.0); Sodium 138 mmol/L (137-145)
--- NOTE | 2024-10-26 07:05 | P.PNGI_ITS ---
Progress Note: A&P Assessment and Plan (1) Acute pancreatitis: Code(s): K85.90 - Acute pancreatitis without necrosis or infection, unspecified Status: Acute Assessment and Plan: The patient's acute pancreatitis has resolved. Its etiology is presumably biliary, given the documented cholelithiasis. Attempts to perform a cholangiogram of the biliary tree could not be performed due to by a contracted gallbladder, observed during the planned cholecystostomy. For that purpose, an MRCP is scheduled for today. We anticipate potential limitations with this imaging due to the patient's existing conditions and the possibility of motion artifact. If the MRCP reveals no choledocholithiasis, discharge can be considered. Regarding nutritional support, the patient has a history of gastroparesis, which led to intolerance when we attempted to reach a feeding goal of 50 mL/hour last week. We have since initiated feeds at a slower rate and are currently at 20 mL/hour, with plans to increase to 30 mL/hour. Given he had a PEG/PEJ tube in the past,it would be an ideal solution for improved long-term nutrition. 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 Exam Narrative: Abdomen: Soft, nontender, nondistended. Rest of the exam Unchanged from his baseline. Objective Data Vital Signs Vital Signs: Vital Signs - 24 hr 10/25/24 07:26 10/25/24 07:52 10/25/24 07:59 Temperature 98.4 F Pulse Rate 127 H 121 H Respiratory Rate 18 Blood Pressure 150/71 H Pulse Oximetry 96 96 Oxygen Delivery High Flow Therapy with Tr Oxygen Flow Rate 25 Fraction of Inspired Oxygen 10/25/24 08:00 10/25/24 08:00 10/25/24 10:00 Temperature Pulse Rate 118 H 127 H 105 H Respiratory Rate 18 Blood Pressure Pulse Oximetry 96 Oxygen Delivery High Flow Therapy with Tr Oxygen Flow Rate 25 Fraction of Inspired Oxygen 10/25/24 15:39 10/25/24 15:57 10/25/24 17:25 Temperature 100.3 F H 97.8 F Pulse Rate 112 H 103 H Respiratory Rate 18 Blood Pressure 180/94 H 159/83 H Pulse Oximetry 96 95 96 Oxygen Delivery High Flow Therapy with Tr Oxygen Flow Rate 25 Fraction of Inspired Oxygen 10/25/24 20:00 10/25/24 20:00 10/25/24 20:41 Temperature 97.6 F Pulse Rate 105 H Respiratory Rate 16 Blood Pressure 143/85 H Pulse Oximetry 95 98 98 Oxygen Delivery High Flow Therapy with Tr High Flow Therapy with Tr Oxygen Flow Rate 25 25 Fraction of Inspired Oxygen 10/25/24 20:47 10/26/24 05:29 Temperature 97.4 F L Pulse Rate 105 H 83 Respiratory Rate 16 Blood Pressure 132/84 Pulse Oximetry 97 Oxygen Delivery Oxygen Flow Rate Fraction of Inspired Oxygen Intake/Output Intake/Output: Intake & Output 10/23/24 10/24/24 10/25/24 10/26/24 23:59 23:59 23:59 23:59 Intake Total 2589 1900 2196 1330 Output Total 1025 3100 2950 2450 Balance 1564 -1200 -754 -1120 Meds/Results Medications: Active Medications Generic Name Dose Route Start Last Admin Trade Name Freq PRN Reason Stop Dose Admin Acetaminophen 325 mg 10/21/24 12:12 10/25/24 12:03 Acetaminophen 325 Mg Suppository RECTAL 325 mg Q4H PRN Administration Mild Pain (1-3) or Fever Albuterol/Ipratropium 3 ml 10/19/24 00:22 Ipratropium 0.5 Mg/Albuterol Sulfate 2.5 Mg Ampul.Neb 3 Ml INHALATION Q6HRT PRN Shortness Of Breath Amlodipine Besylate 5 mg 10/25/24 17:00 10/25/24 17:49 Amlodipine Besylate 5 Mg Tablet FEED TUBE 5 mg DAILY [facility] Administration Atorvastatin Calcium 40 mg 10/25/24 21:00 10/25/24 20:47 Atorvastatin 40 Mg Tablet FEED TUBE 40 mg HS [facility] Administration Bisacodyl 10 mg 10/19/24 00:22 Bisacodyl 10 Mg Suppository RECTAL DAILY PRN Constipation Clobazam 10 mg 10/19/24 09:00 10/21/24 10:07 Clobazam (*Crx) 10 Mg Tablet FEED TUBE Not Given DAILY TER[facility] Dextrose 12.5 gm 10/20/24 20:45 10/24/24 06:05 Dextrose 50% 25 Gm/50 Ml Syringe IV PUSH 12.5 gm PRN PRN Administration Hypoglycemia Protocol Enoxaparin Sodium 40 mg 10/25/24 09:00 10/25/24 08:05 Enoxaparin 40 Mg/0.4 Ml Syringe SUB-Q 40 mg DAILY [facility] Administration Finasteride 5 mg 10/26/24 09:00 Finasteride 5 Mg Tablet FEED TUBE DAILY [facility] Folic Acid 1 mg 10/19/24 09:00 10/21/24 10:07 Folic Acid 1 Mg Tablet FEED TUBE Not Given DAILY TER[facility] Glucose 15 gm 10/20/24 20:45 Glucose Oral Gel 15 Gm Of Glucse In 37.5 Gm Tube PO PRN PRN Hypoglycemia Protocol Glycopyrrolate 2 mg 10/19/24 00:50 10/21/24 12:14 Glycopyrrolate 1 Mg Tablet FEED TUBE Not Given Q8HR [facility] Hydralazine HCl 10 mg 10/22/24 11:45 10/25/24 06:52 Hydralazine Hcl 20 Mg/Ml Vial IV PUSH 10 mg Q6H PRN Administration Blood Pressure -systolic>160 Hydromorphone HCl 0.5 mg 10/18/24 19:08 10/26/24 04:51 Hydromorphone Hcl Inj (*Crx) 2 Mg/Ml Vial IV PUSH 0.5 mg Q4H PRN Administration Pain Rated 7-10 Lactated Ringer's 1,000 mls @ 60 mls/hr 10/19/24 00:05 10/26/24 02:23 Lr - Lactated Ringers Iv IV CONT 60 mls/hr .[id number] [facility] Administration Dextrose 1,000 mls @ 100 mls/hr 10/20/24 20:45 Dextrose 5% 1,000 Ml IVPB PRN PRN Hypoglycemia Protocol Levetiracetam 1,000 mg in 100 mls @ 400 mls/hr 10/21/24 12:46 10/25/24 21:04 Keppra Iv IVPB Infused Q12HR [facility] Infusion Levetiracetam 1,000 mg in 100 mls @ 400 mls/hr 10/21/24 12:45 10/25/24 21:06 Keppra Iv IVPB Infused Q12HR [facility] Infusion Lacosamide 250 mg/ Sodium 100 mls @ 200 mls/hr 10/22/24 11:00 10/25/24 22:36 Chloride IVPB Infused Q12HR [facility] Infusion Levofloxacin/Dextrose 750 mg in 150 mls @ 100 mls/hr 10/24/24 12:00 10/25/24 14:58 Levaquin 750 Mg/D5w 150 Ml IVPB Infused Q24H [facility] Infusion Metronidazole 500 mg in 100 mls @ 100 mls/hr 10/24/24 14:00 10/26/24 06:05 Flagyl 500 Mg/Iso Soln 100 Ml IVPB 100 mls/hr Q8HR [facility] Administration Isosorbide Dinitrate 5 mg 10/25/24 17:00 10/25/24 17:49 Isosorbide Dinitrate 5 Mg Tablet FEED TUBE 5 mg TID [facility] Administration Lacosamide 200 mg 10/19/24 01:10 10/21/24 12:14 Lacosamide (*Crx) 200 Mg Tablet FEED TUBE Not Given Q12HR [facility] Lacosamide 50 mg 10/20/24 21:00 10/21/24 12:14 Lacosamide (*Crx) 50 Mg Tablet PO Not Given Q12HR [facility] Lansoprazole 30 mg 10/25/24 21:00 10/25/24 20:47 Lansoprazole Odt 30 Mg Tab.Rap.Dr FEED TUBE 30 mg Q12H [facility] Administration Lorazepam 2 mg 10/19/24 10:34 Lorazepam Inj (*Crx) 2 Mg/Ml Vial IV PUSH Q4HR PRN Seizure Activity Magnesium Hydroxide 30 ml 10/19/24 00:22 Magnesium Hydroxide Susp 30 Ml Udc PO HS PRN Constipation Metoclopramide HCl 10 mg 10/19/24 09:00 Metoclopramide Hcl 10 Mg Tablet FEED TUBE TID [facility] Metoclopramide HCl 5 mg 10/22/24 14:19 Metoclopramide Hcl Inj 10 Mg/2 Ml Vial IV PUSH Q6HR PRN Vomiting Metoprolol Tartrate 25 mg 10/19/24 00:25 10/21/24 10:08 Metoprolol Tartrate 25 Mg Tablet FEED TUBE Not Given Q12HR [facility] Metoprolol Tartrate 5 mg 10/21/24 12:55 10/25/24 20:47 Metoprolol Tartrate Inj 5 Mg/5 Ml Vial IV PUSH 5 mg Q12HR [facility] Administration Ondansetron HCl 4 mg 10/18/24 19:08 10/26/24 04:42 Ondansetron Inj 4 Mg/2 Ml Vial IV PUSH 4 mg Q4H PRN Administration Nausea Scopolamine 1 patch 10/22/24 09:00 10/25/24 09:40 Scopolamine 1 Mg Patch TRANSDERM 1 patch Q72HR [facility] Administration Senna 8.6 mg 10/19/24 09:00 10/21/24 12:14 Sennosides 8.6 Mg Tablet FEED TUBE Not Given BID [facility] Thiamine HCl 100 mg 10/19/24 09:00 10/21/24 10:08 Thiamine Hcl 100 Mg Tablet FEED TUBE Not Given DAILY [facility] Radiology Results: ITS Impressions Abdomen CT 10/18/24 22:58 IMPRESSION: Findings consistent with (likely) gallstone pancreatitis, as detailed above. Imaging findings are now much clearer after fluid resuscitation. Redemonstration of a percutaneous gastrostomy with its balloon extending to the level of the pylorus, rather than immediately beneath the undersurface of the anterior abdominal wall for which withdrawal of 4.9 cm (with the balloon continuously inflated) is recommended for optimal radiographic placement. Abdomen X-Ray 10/22/24 12:31 IMPRESSION: Decreased air opacification of the colon, when compared with previous days examination. No air is identified within the rectum. Abdomen/Pelvis CT 10/23/24 11:47 IMPRESSION: Findings consistent with patient's known history of acute pancreatitis. The gallbladder is now decompressed. Rather than percutaneous cholecystostomy with cholangiography, would recommend MRCP (in this patient with normal renal function) for further evaluation of the biliary tree. Abdomen Ultrasound 10/24/24 05:44 Impression: Limited exam due to bowel gas shadowing and body habitus. No definite evidence for cholecystitis. No significant abnormality identified. Labs Labs: Laboratory Results - last 24 hr 10/25/24 10/25/24 10/25/24 11:13 18:32 23:26 WBC RBC Hgb Hct MCV MCH MCHC RDW Plt Count MPV Immature Gran % (Auto) Neut % (Auto) Lymph % (Auto) [place] % (Auto) Eos % (Auto) Baso % (Auto) Lymph # (Auto) [place] # (Auto) Eos # (Auto) Baso # (Auto) Abs Immat Gran (auto) Absolute Neuts (auto) Absolute Nucleated RBC Nucleated RBC % Sodium Potassium Chloride Carbon Dioxide Anion Gap BUN Creatinine Estim Creat Clear Calc Estimated GFR Glucose POC Capillary Glucose 85 110 H 104 Calcium Magnesium Total Bilirubin AST ALT Alkaline Phosphatase Total Protein Albumin 10/26/24 10/26/24 05:32 05:59 WBC 5.3 RBC 3.40 L Hgb 11.0 L Hct 33.5 L MCV 98.5 MCH 32.4 MCHC 32.8 RDW 13.2 Plt Count 195 MPV 11.5 H Immature Gran % (Auto) 0.2 Neut % (Auto) 48.7 Lymph % (Auto) 26.8 [place] % (Auto) 15.6 H Eos % (Auto) 8.3 H Baso % (Auto) 0.4 Lymph # (Auto) 1.43 [place] # (Auto) 0.8 H Eos # (Auto) 0.4 H Baso # (Auto) 0.0 Abs Immat Gran (auto) 0.01 Absolute Neuts (auto) 2.6 Absolute Nucleated RBC 0.000 Nucleated RBC % 0.0 Sodium 138 Potassium 3.3 L Chloride 107 Carbon Dioxide 25 Anion Gap 6 BUN 3 L Creatinine 0.43 L Estim Creat Clear Calc 152 Estimated GFR > 60 Glucose 125 H POC Capillary Glucose 119 H Calcium 9.4 Magnesium 1.7 Total Bilirubin 0.3 AST 28 ALT 23 Alkaline Phosphatase 80 Total Protein 7.0 Albumin 3.3 L
[2024-10-26] MEDS: LANSOPRAZOLE ODT 30 MG TAB.RAP.DR FEED TUBE ×2 (08:51→22:39)
[2024-10-26] MEDS: ISOSORBIDE DINITRATE 5 MG TABLET FEED TUBE ×3 (08:51→17:42)
[2024-10-26] MEDS: ENOXAPARIN 40 MG/0.4 ML SYRINGE SUB-Q (08:51)
[2024-10-26] MEDS: amLODIPine BESYLATE 5 MG TABLET FEED TUBE (08:51)
[2024-10-26] MEDS: SODIUM CHLORIDE 0.9% IVPB ×2 (08:52→21:08)
[2024-10-26] MEDS: LACOSAMIDE IVPB ×2 (08:52→21:08)
[2024-10-26] MEDS: levETIRAcetam 1000MG/NACL100ML 1,000 MG/100 ML BAG 400 MG IVPB ×4 (08:54→20:21)
[2024-10-26] MEDS: METOPROLOL TARTRATE INJ 5 MG/5 ML VIAL IV PUSH ×2 (08:56→22:08)
--- NOTE | 2024-10-26 11:19 | P.PNIM_ITS ---
Progress Note: A&P Assessment and Plan (1) Cholecystitis: Code(s): K81.9 - Cholecystitis, unspecified Status: Acute Assessment and Plan: -Nausea, vomiting, abdominal distension -CT findings of markedly distended gallbladder with layering stones and surrounding free fluid -Lipase highly elevated raising concern for choledocholithiasis with acute pancreatitis -IV Zosyn started in ER -NPO status (except vital medications) -PRN pain and nausea medication -GI and General Surgery consulted by ER provider -MRCP ordered for tomorrow -Hold Eliquis, SCDs for VTE prophylaxis -Morning labs ordered -IV fluids given for elevated lipase and highly elevated lactic acid -Ordered STAT procalcitonin, ESR, CRP with daily recheck x3 Surgery noted no intervention needed at this time and monitor on medical management -GFor MRCP tomorrow (2) Severe sepsis: Code(s): A41.9 - Sepsis, unspecified organism; R65.20 - Severe sepsis without septic shock Status: Acute Assessment and Plan: Due to cholecystitis, see above (3) Pancreatitis: Code(s): K85.90 - Acute pancreatitis without necrosis or infection, unspecified Status: Acute Assessment and Plan: See above, concern for choledocholithiasis started on tueb feeding 20ml/hr, monitor (4) Malfunction of gastrostomy tube: Code(s): K94.23 - Gastrostomy malfunction Status: Acute Assessment and Plan: -CT abdomen pelvis showed G-tube malpositioned too deep within the stomach -This was pulled back by ER provider continue tube feeding (5) History of multiple strokes: Code(s): Z86.73 - Personal history of transient ischemic attack (TIA), and cerebral infarction without residual deficits Status: Chronic Assessment and Plan: -Non-verbal with trach and G-tube chronically due to prior CVAs with significant residual deficits (6) Epilepsy: Code(s): G40.909 - Epilepsy, unspecified, not intractable, without status epilepticus Status: Acute Assessment and Plan: -History of epilepsy, on multiple medications which will be continued Dose adjustment will be done as per neurologist request. Will taper Depakote from t.i.d. to b.i.d. to once a day and will be totally discontinued from Tuesday. Vimpat will be increased from 200 mg p.o. b.i.d. to 250 mg p.o. b.i.d.. And Keppra will be increased from 17 50 mg p.o. b.i.d. to 2 g p.o. b.i.d. (7) Acute lactic acidosis: Code(s): E87.21 - Acute metabolic acidosis Status: Acute Assessment and Plan: -Likely due to severe sepsis related to acute cholecystitis -Improvement on recheck after additional IV fluids patient noted to be lethargic adn nonverbal at baseline Plan DVT prophylaxis on Sq lovenox Subjective Date/time seen: 10/26/24 11:19 Interval history: The patient tolerated enteral feedings at a rate of 20 mL/hour, with no vomiting and no gastric residuals. Review of Systems Review of Systems: ROS unobtainable: Yes unobtainable due to mental status Exam Narrative: GENERAL: Chronically ill-appearing, well-nourished, and in no acute distress. HEAD: Normocephalic, atraumatic. EYES: PERRL and EOMI. NECK: Supple. Tracheostomy with no significant plugging of the tube. CHEST: Clear to auscultation. No respiratory distress. HEART: Regular rate and rhythm. Normal peripheral pulses. ABDOMEN: Mildly distended abdomen without significant tenderness. Peg site appears normal. Normal bowel sounds. EXTREMITIES: Right lower extremity in cushion boot. Left AKA. NEURO: Awake, alert, and at neurologic baseline. Objective Data Vital Signs Vital Signs: Vital Signs - 24 hr 10/25/24 15:39 10/25/24 15:57 10/25/24 17:25 Temperature 100.3 F H 97.8 F Pulse Rate 112 H 103 H Respiratory Rate 18 Blood Pressure 180/94 H 159/83 H Pulse Oximetry 96 95 96 Oxygen Delivery High Flow Therapy with Tr Oxygen Flow Rate 25 Fraction of Inspired Oxygen 10/25/24 20:00 10/25/24 20:00 10/25/24 20:41 Temperature 97.6 F Pulse Rate 105 H Respiratory Rate 16 Blood Pressure 143/85 H Pulse Oximetry 95 98 98 Oxygen Delivery High Flow Therapy with Tr High Flow Therapy with Tr Oxygen Flow Rate 25 25 Fraction of Inspired Oxygen 28 10/25/24 20:47 10/26/24 05:29 10/26/24 08:00 Temperature 97.4 F L Pulse Rate 105 H 83 Respiratory Rate 16 Blood Pressure 132/84 Pulse Oximetry 97 96 Oxygen Delivery High Flow Therapy with Tr Oxygen Flow Rate 10 Fraction of Inspired Oxygen 27 10/26/24 08:21 Temperature Pulse Rate Respiratory Rate Blood Pressure Pulse Oximetry 96 Oxygen Delivery High Flow Therapy with Tr Oxygen Flow Rate 25 Fraction of Inspired Oxygen 27 Intake/Output Intake/Output: Intake & Output 10/23/24 10/24/24 10/25/24 10/26/24 23:59 23:59 23:59 23:59 Intake Total 2589 1900 2196 1330 Output Total 1025 3100 2950 2450 Balance 1564 -1200 -754 -1120 Meds/Results Medications: Active Medications Generic Name Dose Route Start Last Admin Trade Name Freq PRN Reason Stop Dose Admin Acetaminophen 325 mg 10/21/24 12:12 10/25/24 12:03 Acetaminophen 325 Mg Suppository RECTAL 325 mg Q4H PRN Administration Mild Pain (1-3) or Fever Albuterol/Ipratropium 3 ml 10/19/24 00:22 Ipratropium 0.5 Mg/Albuterol Sulfate 2.5 Mg Ampul.Neb 3 Ml INHALATION Q6HRT PRN Shortness Of Breath Amlodipine Besylate 5 mg 10/25/24 17:00 10/26/24 08:51 Amlodipine Besylate 5 Mg Tablet FEED TUBE 5 mg DAILY TERRELL Administration Atorvastatin Calcium 40 mg 10/25/24 21:00 10/25/24 20:47 Atorvastatin 40 Mg Tablet FEED TUBE 40 mg HS TERRELL Administration Bisacodyl 10 mg 10/19/24 00:22 Bisacodyl 10 Mg Suppository RECTAL DAILY PRN Constipation Clobazam 10 mg 10/19/24 09:00 10/21/24 10:07 Clobazam (*Crx) 10 Mg Tablet FEED TUBE Not Given DAILY TERRE[facility] Dextrose 12.5 gm 10/20/24 20:45 10/24/24 06:05 Dextrose 50% 25 Gm/50 Ml Syringe IV PUSH 12.5 gm PRN PRN Administration Hypoglycemia Protocol Enoxaparin Sodium 40 mg 10/25/24 09:00 10/26/24 08:51 Enoxaparin 40 Mg/0.4 Ml Syringe SUB-Q 40 mg DAILY TERRELL Administration Finasteride 5 mg 10/26/24 09:00 Finasteride 5 Mg Tablet FEED TUBE DAILY TERRE[facility] Folic Acid 1 mg 10/19/24 09:00 10/21/24 10:07 Folic Acid 1 Mg Tablet FEED TUBE Not Given DAILY TERRE[facility] Glucose 15 gm 10/20/24 20:45 Glucose Oral Gel 15 Gm Of Glucse In 37.5 Gm Tube PO PRN PRN Hypoglycemia Protocol Glycopyrrolate 2 mg 10/19/24 00:50 10/21/24 12:14 Glycopyrrolate 1 Mg Tablet FEED TUBE Not Given Q8HR TER[facility] Hydralazine HCl 10 mg 10/22/24 11:45 10/25/24 06:52 Hydralazine Hcl 20 Mg/Ml Vial IV PUSH 10 mg Q6H PRN Administration Blood Pressure -systolic>160 Hydromorphone HCl 0.5 mg 10/18/24 19:08 10/26/24 04:51 Hydromorphone Hcl Inj (*Crx) 2 Mg/Ml Vial IV PUSH 0.5 mg Q4H PRN Administration Pain Rated 7-10 Lactated Ringer's 1,000 mls @ 60 mls/hr 10/19/24 00:05 10/26/24 02:23 Lr - Lactated Ringers Iv IV CONT 60 mls/hr .[id number] TERRE[facility] Administration Dextrose 1,000 mls @ 100 mls/hr 10/20/24 20:45 Dextrose 5% 1,000 Ml IVPB PRN PRN Hypoglycemia Protocol Levetiracetam 1,000 mg in 100 mls @ 400 mls/hr 10/21/24 12:46 10/26/24 08:54 Keppra Iv IVPB 400 mls/hr Q12HR TERRE[facility] Administration Levetiracetam 1,000 mg in 100 mls @ 400 mls/hr 10/21/24 12:45 10/26/24 08:56 Keppra Iv IVPB 400 mls/hr Q12HR [facility] Administration Lacosamide 250 mg/ Sodium 100 mls @ 200 mls/hr 10/22/24 11:00 10/26/24 08:52 Chloride IVPB 200 mls/hr Q12HR [facility] Administration Levofloxacin/Dextrose 750 mg in 150 mls @ 100 mls/hr 10/24/24 12:00 10/25/24 14:58 Levaquin 750 Mg/D5w 150 Ml IVPB Infused Q24H TERRE[facility] Infusion Metronidazole 500 mg in 100 mls @ 100 mls/hr 10/24/24 14:00 10/26/24 06:05 Flagyl 500 Mg/Iso Soln 100 Ml IVPB 100 mls/hr Q8HR TERRE[facility] Administration Isosorbide Dinitrate 5 mg 10/25/24 17:00 10/26/24 08:51 Isosorbide Dinitrate 5 Mg Tablet FEED TUBE 5 mg TID TERRELL Administration Lacosamide 200 mg 10/19/24 01:10 10/21/24 12:14 Lacosamide (*Crx) 200 Mg Tablet FEED TUBE Not Given Q12HR TERRE[facility] Lacosamide 50 mg 10/20/24 21:00 10/21/24 12:14 Lacosamide (*Crx) 50 Mg Tablet PO Not Given Q12HR [facility] Lansoprazole 30 mg 10/25/24 21:00 10/26/24 08:51 Lansoprazole Odt 30 Mg Tab.Rap.Dr FEED TUBE 30 mg Q12H [facility] Administration Lorazepam 2 mg 10/19/24 10:34 Lorazepam Inj (*Crx) 2 Mg/Ml Vial IV PUSH Q4HR PRN Seizure Activity Magnesium Hydroxide 30 ml 10/19/24 00:22 Magnesium Hydroxide Susp 30 Ml Udc PO HS PRN Constipation Metoclopramide HCl 10 mg 10/19/24 09:00 Metoclopramide Hcl 10 Mg Tablet FEED TUBE TID [facility] Metoclopramide HCl 5 mg 10/22/24 14:19 Metoclopramide Hcl Inj 10 Mg/2 Ml Vial IV PUSH Q6HR PRN Vomiting Metoprolol Tartrate 25 mg 10/19/24 00:25 10/21/24 10:08 Metoprolol Tartrate 25 Mg Tablet FEED TUBE Not Given Q12HR [facility] Metoprolol Tartrate 5 mg 10/21/24 12:55 10/26/24 08:56 Metoprolol Tartrate Inj 5 Mg/5 Ml Vial IV PUSH 5 mg Q12HR [facility] Administration Ondansetron HCl 4 mg 10/18/24 19:08 10/26/24 04:42 Ondansetron Inj 4 Mg/2 Ml Vial IV PUSH 4 mg Q4H PRN Administration Nausea Scopolamine 1 patch 10/22/24 09:00 10/25/24 09:40 Scopolamine 1 Mg Patch TRANSDERM 1 patch Q72HR [facility] Administration Senna 8.6 mg 10/19/24 09:00 10/21/24 12:14 Sennosides 8.6 Mg Tablet FEED TUBE Not Given BID TERRE[facility] Thiamine HCl 100 mg 10/19/24 09:00 10/21/24 10:08 Thiamine Hcl 100 Mg Tablet FEED TUBE Not Given DAILY TERRE[facility] Radiology Results: ITS Impressions Abdomen CT 10/18/24 22:58 IMPRESSION: Findings consistent with (likely) gallstone pancreatitis, as detailed above. Imaging findings are now much clearer after fluid resuscitation. Redemonstration of a percutaneous gastrostomy with its balloon extending to the level of the pylorus, rather than immediately beneath the undersurface of the anterior abdominal wall for which withdrawal of 4.9 cm (with the balloon continuously inflated) is recommended for optimal radiographic placement. Abdomen X-Ray 10/22/24 12:31 IMPRESSION: Decreased air opacification of the colon, when compared with previous days examination. No air is identified within the rectum. Abdomen/Pelvis CT 10/23/24 11:47 IMPRESSION: Findings consistent with patient's known history of acute pancreatitis. The gallbladder is now decompressed. Rather than percutaneous cholecystostomy with cholangiography, would recommend MRCP (in this patient with normal renal function) for further evaluation of the biliary tree. Abdomen Ultrasound 10/24/24 05:44 Impression: Limited exam due to bowel gas shadowing and body habitus. No definite evidence for cholecystitis. No significant abnormality identified. Labs Labs: Laboratory Results - last 24 hr 10/25/24 10/25/24 10/26/24 18:32 23:26 05:32 WBC RBC Hgb Hct MCV MCH MCHC RDW Plt Count MPV Immature Gran % (Auto) Neut % (Auto) Lymph % (Auto) [place] % (Auto) Eos % (Auto) Baso % (Auto) Lymph # (Auto) [place] # (Auto) Eos # (Auto) Baso # (Auto) Abs Immat Gran (auto) Absolute Neuts (auto) Absolute Nucleated RBC Nucleated RBC % Sodium Potassium Chloride Carbon Dioxide Anion Gap BUN Creatinine Estim Creat Clear Calc Estimated GFR Glucose POC Capillary Glucose 110 H 104 119 H Calcium Magnesium Total Bilirubin AST ALT Alkaline Phosphatase Total Protein Albumin 10/26/24 05:59 WBC 5.3 RBC 3.40 L Hgb 11.0 L Hct 33.5 L MCV 98.5 MCH 32.4 MCHC 32.8 RDW 13.2 Plt Count 195 MPV 11.5 H Immature Gran % (Auto) 0.2 Neut % (Auto) 48.7 Lymph % (Auto) 26.8 [place] % (Auto) 15.6 H Eos % (Auto) 8.3 H Baso % (Auto) 0.4 Lymph # (Auto) 1.43 [place] # (Auto) 0.8 H Eos # (Auto) 0.4 H Baso # (Auto) 0.0 Abs Immat Gran (auto) 0.01 Absolute Neuts (auto) 2.6 Absolute Nucleated RBC 0.000 Nucleated RBC % 0.0 Sodium 138 Potassium 3.3 L Chloride 107 Carbon Dioxide 25 Anion Gap 6 BUN 3 L Creatinine 0.43 L Estim Creat Clear Calc 152 Estimated GFR > 60 Glucose 125 H POC Capillary Glucose Calcium 9.4 Magnesium 1.7 Total Bilirubin 0.3 AST 28 ALT 23 Alkaline Phosphatase 80 Total Protein 7.0 Albumin 3.3 L Quality VTE Prophylaxis VTE prophylaxis: mechanical ordered
[2024-10-26 11:48] LABS: Glucose Point of Care 114 mg/dl (65-105)
--- NOTE | 2024-10-26 12:01 | PCNFU ---
Nutrition Follow-Up Complete: Inadequate enteral nutrition intake related to cholecystitis, pancreatitis as evidenced by NPO status/tube feeds on hold Goal:Meet estimated nutritional needs when medically able Pt slowly progressing towards goal Pt current nutrition is Jevity 1.5 @ 30ml/hr. Nutrition recommendation: Advance to goal rate of 50ml/hr Last recorded weight is 74.4 kg. Bowel Motility: +BM 10/25 Labs Reviewed: Hgb:11, HCT:33.5, Alb:3.3, BUN:3, Cr:0.43, Glu:125 Meds Noted: folic acid, reglan Skin: WNL Additional Notes: Pt tube feedings restarted, up to 30ml/hr at this time and pt is tolerating. Recommend to continue to advance to goal rate of 50ml/hr. Monitoring weights, labs, output, orders Follow up Tuesday/Tuesday
--- NOTE | 2024-10-26 12:04 | P.PNGS_ITS ---
Progress Note: A&P Assessment and Plan (1) Cholecystitis: Code(s): K81.9 - Cholecystitis, unspecified Status: Acute Assessment and Plan: * Improved on follow up imaging. No need for percutaneous cholecystostomy tube or surgery given these findings. Awaiting MRCP to be done at some point. * Surgically stable for discharge. Will see PRN. (2) Acute pancreatitis: Code(s): K85.90 - Acute pancreatitis without necrosis or infection, unspecified Status: Acute Assessment and Plan: Continue medical management. (3) Severe sepsis: Code(s): A41.9 - Sepsis, unspecified organism; R65.20 - Severe sepsis without septic shock Status: Acute (4) Chronic hypoxemic respiratory failure: Code(s): J96.11 - Chronic respiratory failure with hypoxia Status: Chronic (5) Epilepsy: Code(s): G40.909 - Epilepsy, unspecified, not intractable, without status epilepticus Status: Acute (6) Cerebrovascular accident: Code(s): I63.9 - Cerebral infarction, unspecified Status: Chronic Subjective Subjective Date/Time Seen: 10/26/24 12:04 Interval history: No abdominal pain. Tolerating slow rate tube feedings. Exam GI: Inspection: non-distended GI Palp: Yes Soft to palpation, No Tenderness to palpation present (GI), No Guarding due to palpation present (GI) and No Rebound tenderness present Auscultation: normal bowel sounds Objective Data Vital Signs Vital Signs: Vital Signs - 24 hr 10/25/24 15:39 10/25/24 15:57 10/25/24 17:25 Temperature 100.3 F H 97.8 F Pulse Rate 112 H 103 H Respiratory Rate 18 Blood Pressure 180/94 H 159/83 H Pulse Oximetry 96 95 96 Oxygen Delivery High Flow Therapy with Tr Oxygen Flow Rate 25 Fraction of Inspired Oxygen 10/25/24 20:00 10/25/24 20:00 10/25/24 20:41 Temperature 97.6 F Pulse Rate 105 H Respiratory Rate 16 Blood Pressure 143/85 H Pulse Oximetry 95 98 98 Oxygen Delivery High Flow Therapy with Tr High Flow Therapy with Tr Oxygen Flow Rate 25 25 Fraction of Inspired Oxygen 28 10/25/24 20:47 10/26/24 05:29 10/26/24 08:00 Temperature 97.4 F L Pulse Rate 105 H 83 Respiratory Rate 16 Blood Pressure 132/84 Pulse Oximetry 97 96 Oxygen Delivery High Flow Therapy with Tr Oxygen Flow Rate 10 Fraction of Inspired Oxygen 27 10/26/24 08:21 Temperature Pulse Rate Respiratory Rate Blood Pressure Pulse Oximetry 96 Oxygen Delivery High Flow Therapy with Tr Oxygen Flow Rate 25 Fraction of Inspired Oxygen 27 Intake/Output Intake/Output: Intake & Output 10/23/24 10/24/24 10/25/24 10/26/24 23:59 23:59 23:59 23:59 Intake Total 2589 1900 2196 1330 Output Total 1025 3100 2950 2450 Balance 1564 -1200 -754 -1120 Meds/Results Medications: Active Medications Generic Name Dose Route Start Last Admin Trade Name Freq PRN Reason Stop Dose Admin Acetaminophen 325 mg 10/21/24 12:12 10/25/24 12:03 Acetaminophen 325 Mg Suppository RECTAL 325 mg Q4H PRN Administration Mild Pain (1-3) or Fever Albuterol/Ipratropium 3 ml 10/19/24 00:22 Ipratropium 0.5 Mg/Albuterol Sulfate 2.5 Mg Ampul.Neb 3 Ml INHALATION Q6HRT PRN Shortness Of Breath Amlodipine Besylate 5 mg 10/25/24 17:00 10/26/24 08:51 Amlodipine Besylate 5 Mg Tablet FEED TUBE 5 mg DAILY TERRELL Administration Atorvastatin Calcium 40 mg 10/25/24 21:00 10/25/24 20:47 Atorvastatin 40 Mg Tablet FEED TUBE 40 mg HS TERRELL Administration Bisacodyl 10 mg 10/19/24 00:22 Bisacodyl 10 Mg Suppository RECTAL DAILY PRN Constipation Clobazam 10 mg 10/19/24 09:00 10/21/24 10:07 Clobazam (*Crx) 10 Mg Tablet FEED TUBE Not Given DAILY TERRELL Dextrose 12.5 gm 10/20/24 20:45 10/24/24 06:05 Dextrose 50% 25 Gm/50 Ml Syringe IV PUSH 12.5 gm PRN PRN Administration Hypoglycemia Protocol Enoxaparin Sodium 40 mg 10/25/24 09:00 10/26/24 08:51 Enoxaparin 40 Mg/0.4 Ml Syringe SUB-Q 40 mg DAILY TERRELL Administration Finasteride 5 mg 10/26/24 09:00 Finasteride 5 Mg Tablet FEED TUBE DAILY TERRE[facility] Folic Acid 1 mg 10/19/24 09:00 10/21/24 10:07 Folic Acid 1 Mg Tablet FEED TUBE Not Given DAILY TERRELL Glucose 15 gm 10/20/24 20:45 Glucose Oral Gel 15 Gm Of Glucse In 37.5 Gm Tube PO PRN PRN Hypoglycemia Protocol Glycopyrrolate 2 mg 10/19/24 00:50 10/21/24 12:14 Glycopyrrolate 1 Mg Tablet FEED TUBE Not Given Q8HR [facility] Hydralazine HCl 10 mg 10/22/24 11:45 10/25/24 06:52 Hydralazine Hcl 20 Mg/Ml Vial IV PUSH 10 mg Q6H PRN Administration Blood Pressure -systolic>160 Hydromorphone HCl 0.5 mg 10/18/24 19:08 10/26/24 04:51 Hydromorphone Hcl Inj (*Crx) 2 Mg/Ml Vial IV PUSH 0.5 mg Q4H PRN Administration Pain Rated 7-10 Lactated Ringer's 1,000 mls @ 60 mls/hr 10/19/24 00:05 10/26/24 02:23 Lr - Lactated Ringers Iv IV CONT 60 mls/hr .[id number] [facility] Administration Dextrose 1,000 mls @ 100 mls/hr 10/20/24 20:45 Dextrose 5% 1,000 Ml IVPB PRN PRN Hypoglycemia Protocol Levetiracetam 1,000 mg in 100 mls @ 400 mls/hr 10/21/24 12:46 10/26/24 08:54 Keppra Iv IVPB 400 mls/hr Q12HR [facility] Administration Levetiracetam 1,000 mg in 100 mls @ 400 mls/hr 10/21/24 12:45 10/26/24 08:56 Keppra Iv IVPB 400 mls/hr Q12HR [facility] Administration Lacosamide 250 mg/ Sodium 100 mls @ 200 mls/hr 10/22/24 11:00 10/26/24 08:52 Chloride IVPB 200 mls/hr Q12HR [facility] Administration Levofloxacin/Dextrose 750 mg in 150 mls @ 100 mls/hr 10/24/24 12:00 10/25/24 14:58 Levaquin 750 Mg/D5w 150 Ml IVPB Infused Q24H [facility] Infusion Metronidazole 500 mg in 100 mls @ 100 mls/hr 10/24/24 14:00 10/26/24 06:05 Flagyl 500 Mg/Iso Soln 100 Ml IVPB 100 mls/hr Q8HR [facility] Administration Isosorbide Dinitrate 5 mg 10/25/24 17:00 10/26/24 08:51 Isosorbide Dinitrate 5 Mg Tablet FEED TUBE 5 mg TID TERRELL Administration Lacosamide 200 mg 10/19/24 01:10 10/21/24 12:14 Lacosamide (*Crx) 200 Mg Tablet FEED TUBE Not Given Q12HR [facility] Lacosamide 50 mg 10/20/24 21:00 10/21/24 12:14 Lacosamide (*Crx) 50 Mg Tablet PO Not Given Q12HR [facility] Lansoprazole 30 mg 10/25/24 21:00 10/26/24 08:51 Lansoprazole Odt 30 Mg Tab.Rap.Dr FEED TUBE 30 mg Q12H [facility] Administration Lorazepam 2 mg 10/19/24 10:34 Lorazepam Inj (*Crx) 2 Mg/Ml Vial IV PUSH Q4HR PRN Seizure Activity Magnesium Hydroxide 30 ml 10/19/24 00:22 Magnesium Hydroxide Susp 30 Ml Udc PO HS PRN Constipation Metoclopramide HCl 10 mg 10/19/24 09:00 Metoclopramide Hcl 10 Mg Tablet FEED TUBE TID [facility] Metoclopramide HCl 5 mg 10/22/24 14:19 Metoclopramide Hcl Inj 10 Mg/2 Ml Vial IV PUSH Q6HR PRN Vomiting Metoprolol Tartrate 25 mg 10/19/24 00:25 10/21/24 10:08 Metoprolol Tartrate 25 Mg Tablet FEED TUBE Not Given Q12HR [facility] Metoprolol Tartrate 5 mg 10/21/24 12:55 10/26/24 08:56 Metoprolol Tartrate Inj 5 Mg/5 Ml Vial IV PUSH 5 mg Q12HR [facility] Administration Ondansetron HCl 4 mg 10/18/24 19:08 10/26/24 04:42 Ondansetron Inj 4 Mg/2 Ml Vial IV PUSH 4 mg Q4H PRN Administration Nausea Scopolamine 1 patch 10/22/24 09:00 10/25/24 09:40 Scopolamine 1 Mg Patch TRANSDERM 1 patch Q72HR [facility] Administration Senna 8.6 mg 10/19/24 09:00 10/21/24 12:14 Sennosides 8.6 Mg Tablet FEED TUBE Not Given BID TERRE[facility] Thiamine HCl 100 mg 10/19/24 09:00 10/21/24 10:08 Thiamine Hcl 100 Mg Tablet FEED TUBE Not Given DAILY TERRE[facility] Radiology Results: ITS Impressions Abdomen CT 10/18/24 22:58 IMPRESSION: Findings consistent with (likely) gallstone pancreatitis, as detailed above. Imaging findings are now much clearer after fluid resuscitation. Redemonstration of a percutaneous gastrostomy with its balloon extending to the level of the pylorus, rather than immediately beneath the undersurface of the anterior abdominal wall for which withdrawal of 4.9 cm (with the balloon continuously inflated) is recommended for optimal radiographic placement. Abdomen X-Ray 10/22/24 12:31 IMPRESSION: Decreased air opacification of the colon, when compared with previous days examination. No air is identified within the rectum. Abdomen/Pelvis CT 10/23/24 11:47 IMPRESSION: Findings consistent with patient's known history of acute pancreatitis. The gallbladder is now decompressed. Rather than percutaneous cholecystostomy with cholangiography, would recommend MRCP (in this patient with normal renal function) for further evaluation of the biliary tree. Abdomen Ultrasound 10/24/24 05:44 Impression: Limited exam due to bowel gas shadowing and body habitus. No definite evidence for cholecystitis. No significant abnormality identified. Labs Labs: Laboratory Results - last 24 hr 10/25/24 10/25/24 10/26/24 18:32 23:26 05:32 WBC RBC Hgb Hct MCV MCH MCHC RDW Plt Count MPV Immature Gran % (Auto) Neut % (Auto) Lymph % (Auto) [place] % (Auto) Eos % (Auto) Baso % (Auto) Lymph # (Auto) [place] # (Auto) Eos # (Auto) Baso # (Auto) Abs Immat Gran (auto) Absolute Neuts (auto) Absolute Nucleated RBC Nucleated RBC % Sodium Potassium Chloride Carbon Dioxide Anion Gap BUN Creatinine Estim Creat Clear Calc Estimated GFR Glucose POC Capillary Glucose 110 H 104 119 H Calcium Magnesium Total Bilirubin AST ALT Alkaline Phosphatase Total Protein Albumin 10/26/24 10/26/24 05:59 11:44 WBC 5.3 RBC 3.40 L Hgb 11.0 L Hct 33.5 L MCV 98.5 MCH 32.4 MCHC 32.8 RDW 13.2 Plt Count 195 MPV 11.5 H Immature Gran % (Auto) 0.2 Neut % (Auto) 48.7 Lymph % (Auto) 26.8 [place] % (Auto) 15.6 H Eos % (Auto) 8.3 H Baso % (Auto) 0.4 Lymph # (Auto) 1.43 [place] # (Auto) 0.8 H Eos # (Auto) 0.4 H Baso # (Auto) 0.0 Abs Immat Gran (auto) 0.01 Absolute Neuts (auto) 2.6 Absolute Nucleated RBC 0.000 Nucleated RBC % 0.0 Sodium 138 Potassium 3.3 L Chloride 107 Carbon Dioxide 25 Anion Gap 6 BUN 3 L Creatinine 0.43 L Estim Creat Clear Calc 152 Estimated GFR > 60 Glucose 125 H POC Capillary Glucose 114 H Calcium 9.4 Magnesium 1.7 Total Bilirubin 0.3 AST 28 ALT 23 Alkaline Phosphatase 80 Total Protein 7.0 Albumin 3.3 L
[2024-10-26] MEDS: levoFLOXacin 750 MG/D5W 150 ML 750 MG/150 ML BAG 100 MG IVPB (13:07)
[2024-10-26] MEDS: ATORVASTATIN 40 MG TABLET FEED TUBE (22:14)
[2024-10-27] VITALS (7 sets, daily range): BP systolic 135–168; BP diastolic 58–93; PULSE 76–82; RESP 14–16; TEMP 36–36.4; O2SAT 94–98
[2024-10-27 00:10] LABS: Glucose Point of Care 112 mg/dl (65-105)
--- NOTE | 2024-10-27 05:28 | PC.NURSE ---
Pt's tube feeding was paused at 0000 10/27 for MRCP today.
[2024-10-27] MEDS: metroNIDAZOLE 500 MG/ISO 100ML 500 MG/100 ML BAG 100 MG IVPB ×2 (05:30→21:49)
[2024-10-27 05:40] LABS: Glucose Point of Care 102 mg/dl (65-105)
[2024-10-27] MEDS: hydrALAZINE HCL 20 MG/ML VIAL 10 MG IV PUSH (05:44)
[2024-10-27 06:50] LABS: Basophils Percent Auto 0.5 % (0.2-1.2); Eosinophils Absolute Auto 0.5 K/mm3 (0-0.3); Eosinophils Percent Auto 8.2 % (0-4.4); Hematocrit 37.4 % (42.0-52.0); Immature Granulocyte Absolute 0.01 K/mm3 (0.00-0.031); Immature Granulocyte Percent A 0.2 % (0-0.5); Lymphocytes Absolute Auto 2.03 K/mm3 (0.9-3.2); Lymphocytes Percent Auto 35.3 % (18.3-44.2); Mean Corpuscular HGB Conc 32.1 g/dl (32-36); Mean Corpuscular Hemoglobin 31.9 pg (26-34); Mean Corpuscular Volume 99.5 fl (80-100); Mean Platelet Volume 12.3 fl (7.4-10.4); Monocytes Absolute Auto 0.7 K/mm3 (0.1-0.6); Monocytes Percent Auto 11.5 % (2.6-8.5); Neutrophils Absolute Auto 2.6 K/mm3 (1.3-6.7); Neutrophils Percent Auto 44.3 % (45.5-73.1); Platelet Count Result 235 k/mm3 (150-375); Red Blood Count 3.76 M/mm3 (4.6-6.20); Red Cell Distribution Width 13.3 % (11.5-14.5); White Blood Count 5.8 K/mm3 (4.5-10.0)
[2024-10-27] MEDS: HYDROmorphone HCL INJ (*CRX) 2 MG/ML VIAL 0.5 MG IV PUSH ×2 (10:05→16:34)
[2024-10-27] MEDS: METOPROLOL TARTRATE INJ 5 MG/5 ML VIAL IV PUSH ×2 (10:06→21:52)
[2024-10-27] MEDS: levETIRAcetam 1000MG/NACL100ML 1,000 MG/100 ML BAG 400 MG IVPB ×4 (10:12→21:46)
[2024-10-27] MEDS: SODIUM CHLORIDE 0.9% IVPB ×2 (10:59→21:44)
[2024-10-27] MEDS: LACOSAMIDE IVPB ×2 (10:59→21:44)
[2024-10-27 11:33] LABS: Glucose Point of Care 95 mg/dl (65-105)
--- NOTE | 2024-10-27 12:40 | WPDGIPROGNO ---
Progress Note: A&P Assessment and Plan (1) Pancreatitis: Code(s): K85.90 - Acute pancreatitis without necrosis or infection, unspecified Status: Acute Assessment and Plan: resolved mrcp today liver enzymes normal he is not surgical candidate and has been tolerating tube feeding by g-tube now he uses to have g-j tube because gastroparesis (if family would like to replace then will need follow-up at [facility]- we do not exchange g-j tube here) but thus far it seems that he has been tolerating feeding if mrcp no major findings then no objections to discharge (2) Cholecystitis: Code(s): K81.9 - Cholecystitis, unspecified Status: Acute Assessment and Plan: treated medically IR was unable to place cholecystostomy tube (collapsed GB) pending mrcp (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 (4) Gastroparesis: Code(s): K31.84 - Gastroparesis Status: Acute (5) Aphasia: Code(s): R47.01 - Aphasia Status: Chronic (6) Cerebrovascular accident: Code(s): I63.9 - Cerebral infarction, unspecified Status: Chronic Subjective Date/time seen: 10/27/24 12:40 Interval history: no changes he has been tolerating tube feeding Review of Systems Review of Systems: All systems reviewed & are unremarkable except as noted in HPI and below Exam Const: General: comfortable and no acute distress Other: unable to get history HENMT: Face/Nose/Sinus: Normal nares present Eyes: Sclera: sclerae normal Neck: Neck: supple Resp: Effort & Inspection: normal respiratory effort Auscultation: clear to auscultation bilaterally Cardio: Rate: regular rate Rhythm: regular rhythm GI: GI Palp: Yes Soft to palpation and No Tenderness to palpation present (GI) Auscultation: normal bowel sounds Other: G-tube in position Skin: General skin exam: normal color Neuro: Other: aphasia Extrem: General: no edema Other: Left AKA Psych: Other: unable to assess Objective Data Vital Signs Vital Signs: Vital Signs - 24 hr 10/26/24 14:00 10/26/24 14:34 10/26/24 20:42 Temperature 96.8 F L 97.2 F L Pulse Rate 90 85 Respiratory Rate 18 20 Blood Pressure 137/83 177/86 H Pulse Oximetry 96 95 99 Oxygen Delivery High Flow Therapy with Tr Oxygen Flow Rate 25 Fraction of Inspired Oxygen 10/26/24 21:00 10/26/24 22:08 10/27/24 05:24 Temperature 97.6 F Pulse Rate 82 77 Respiratory Rate 16 Blood Pressure 168/82 H Pulse Oximetry 95 97 Oxygen Delivery High Flow Therapy with Tr Oxygen Flow Rate 25 Fraction of Inspired Oxygen 10/27/24 06:16 Temperature Pulse Rate Respiratory Rate Blood Pressure 135/58 L Pulse Oximetry Oxygen Delivery Oxygen Flow Rate Fraction of Inspired Oxygen Intake/Output Intake/Output: Intake & Output 10/24/24 10/25/24 10/26/24 10/27/24 23:59 23:59 23:59 23:59 Intake Total 1900 2196 2130 550 Output Total 3100 2950 2450 1500 [facility] -1200 -754 -320 -950 Meds/Results Medications: Active Medications Generic Name Dose Route Start Last Admin Trade Name Freq PRN Reason Stop Dose Admin Acetaminophen 325 mg 10/21/24 12:12 10/25/24 12:03 Acetaminophen 325 Mg Suppository RECTAL 325 mg Q4H PRN Administration Mild Pain (1-3) or Fever Albuterol/Ipratropium 3 ml 10/19/24 00:22 Ipratropium 0.5 Mg/Albuterol Sulfate 2.5 Mg Ampul.Neb 3 Ml INHALATION Q6HRT PRN Shortness Of Breath Amlodipine Besylate 5 mg 10/25/24 17:00 10/27/24 10:01 Amlodipine Besylate 5 Mg Tablet FEED TUBE Not Given DAILY TERRELL Atorvastatin Calcium 40 mg 10/25/24 21:00 10/26/24 22:14 Atorvastatin 40 Mg Tablet FEED TUBE 40 mg HS TERRELL Administration Bisacodyl 10 mg 10/19/24 00:22 Bisacodyl 10 Mg Suppository RECTAL DAILY PRN Constipation Clobazam 10 mg 10/19/24 09:00 10/21/24 10:07 Clobazam (*Crx) 10 Mg Tablet FEED TUBE Not Given DAILY TERRE[facility] Dextrose 12.5 gm 10/20/24 20:45 10/24/24 06:05 Dextrose 50% 25 Gm/50 Ml Syringe IV PUSH 12.5 gm PRN PRN Administration Hypoglycemia Protocol Enoxaparin Sodium 40 mg 10/25/24 09:00 10/27/24 10:01 Enoxaparin 40 Mg/0.4 Ml Syringe SUB-Q Not Given DAILY [facility] Finasteride 5 mg 10/26/24 09:00 Finasteride 5 Mg Tablet FEED TUBE DAILY TERRE[facility] Folic Acid 1 mg 10/19/24 09:00 10/21/24 10:07 Folic Acid 1 Mg Tablet FEED TUBE Not Given DAILY TERRE[facility] Glucose 15 gm 10/20/24 20:45 Glucose Oral Gel 15 Gm Of Glucse In 37.5 Gm Tube PO PRN PRN Hypoglycemia Protocol Glycopyrrolate 2 mg 10/19/24 00:50 10/21/24 12:14 Glycopyrrolate 1 Mg Tablet FEED TUBE Not Given Q8HR TERRE[facility] Hydralazine HCl 10 mg 10/22/24 11:45 10/27/24 05:44 Hydralazine Hcl 20 Mg/Ml Vial IV PUSH 10 mg Q6H PRN Administration Blood Pressure -systolic>160 Hydromorphone HCl 0.5 mg 10/18/24 19:08 10/27/24 10:05 Hydromorphone Hcl Inj (*Crx) 2 Mg/Ml Vial IV PUSH 0.5 mg Q4H PRN Administration Pain Rated 7-10 Lactated Ringer's 1,000 mls @ 60 mls/hr 10/19/24 00:05 10/26/24 02:23 Lr - Lactated Ringers Iv IV CONT 60 mls/hr .[id number] TERRELL Administration Dextrose 1,000 mls @ 100 mls/hr 10/20/24 20:45 Dextrose 5% 1,000 Ml IVPB PRN PRN Hypoglycemia Protocol Levetiracetam 1,000 mg in 100 mls @ 400 mls/hr 10/21/24 12:46 10/27/24 10:12 Keppra Iv IVPB 400 mls/hr Q12HR TERRELL Administration Levetiracetam 1,000 mg in 100 mls @ 400 mls/hr 10/21/24 12:45 10/27/24 10:13 Keppra Iv IVPB 400 mls/hr Q12HR TERRELL Administration Lacosamide 250 mg/ Sodium 100 mls @ 200 mls/hr 10/22/24 11:00 10/27/24 10:59 Chloride IVPB 200 mls/hr Q12HR TERRELL Administration Levofloxacin/Dextrose 750 mg in 150 mls @ 100 mls/hr 10/24/24 12:00 10/26/24 13:07 Levaquin 750 Mg/D5w 150 Ml IVPB 100 mls/hr Q24H TERRELL Administration Metronidazole 500 mg in 100 mls @ 100 mls/hr 10/24/24 14:00 10/27/24 05:30 Flagyl 500 Mg/Iso Soln 100 Ml IVPB 100 mls/hr Q8HR [facility] Administration Isosorbide Dinitrate 5 mg 10/25/24 17:00 10/27/24 10:04 Isosorbide Dinitrate 5 Mg Tablet FEED TUBE Not Given TID [facility] Lacosamide 200 mg 10/19/24 01:10 10/21/24 12:14 Lacosamide (*Crx) 200 Mg Tablet FEED TUBE Not Given Q12HR [facility] Lacosamide 50 mg 10/20/24 21:00 10/21/24 12:14 Lacosamide (*Crx) 50 Mg Tablet PO Not Given Q12HR [facility] Lansoprazole 30 mg 10/25/24 21:00 10/27/24 11:16 Lansoprazole Odt 30 Mg Tab.Rap.Dr FEED TUBE Not Given Q12H [facility] Lorazepam 2 mg 10/19/24 10:34 Lorazepam Inj (*Crx) 2 Mg/Ml Vial IV PUSH Q4HR PRN Seizure Activity Magnesium Hydroxide 30 ml 10/19/24 00:22 Magnesium Hydroxide Susp 30 Ml Udc PO HS PRN Constipation Metoclopramide HCl 10 mg 10/19/24 09:00 Metoclopramide Hcl 10 Mg Tablet FEED TUBE TID [facility] Metoclopramide HCl 5 mg 10/22/24 14:19 Metoclopramide Hcl Inj 10 Mg/2 Ml Vial IV PUSH Q6HR PRN Vomiting Metoprolol Tartrate 25 mg 10/19/24 00:25 10/21/24 10:08 Metoprolol Tartrate 25 Mg Tablet FEED TUBE Not Given Q12HR [facility] Metoprolol Tartrate 5 mg 10/21/24 12:55 10/27/24 10:06 Metoprolol Tartrate Inj 5 Mg/5 Ml Vial IV PUSH 5 mg Q12HR [facility] Administration Ondansetron HCl 4 mg 10/18/24 19:08 10/26/24 04:42 Ondansetron Inj 4 Mg/2 Ml Vial IV PUSH 4 mg Q4H PRN Administration Nausea Scopolamine 1 patch 10/22/24 09:00 10/25/24 09:40 Scopolamine 1 Mg Patch TRANSDERM 1 patch Q72HR TER[facility] Administration Senna 8.6 mg 10/19/24 09:00 10/21/24 12:14 Sennosides 8.6 Mg Tablet FEED TUBE Not Given BID [facility] Thiamine HCl 100 mg 10/19/24 09:00 10/21/24 10:08 Thiamine Hcl 100 Mg Tablet FEED TUBE Not Given DAILY TER[facility] Radiology Results: ITS Impressions Abdomen CT 10/18/24 22:58 IMPRESSION: Findings consistent with (likely) gallstone pancreatitis, as detailed above. Imaging findings are now much clearer after fluid resuscitation. Redemonstration of a percutaneous gastrostomy with its balloon extending to the level of the pylorus, rather than immediately beneath the undersurface of the anterior abdominal wall for which withdrawal of 4.9 cm (with the balloon continuously inflated) is recommended for optimal radiographic placement. Abdomen X-Ray 10/22/24 12:31 IMPRESSION: Decreased air opacification of the colon, when compared with previous days examination. No air is identified within the rectum. Abdomen/Pelvis CT 10/23/24 11:47 IMPRESSION: Findings consistent with patient's known history of acute pancreatitis. The gallbladder is now decompressed. Rather than percutaneous cholecystostomy with cholangiography, would recommend MRCP (in this patient with normal renal function) for further evaluation of the biliary tree. Abdomen Ultrasound 10/24/24 05:44 Impression: Limited exam due to bowel gas shadowing and body habitus. No definite evidence for cholecystitis. No significant abnormality identified. Labs Labs: Laboratory Results - last 24 hr 10/27/24 10/27/24 10/27/24 00:08 05:27 05:58 WBC 5.8 RBC 3.76 L Hgb 12.0 L Hct 37.4 L MCV 99.5 MCH 31.9 MCHC 32.1 RDW 13.3 Plt Count 235 MPV 12.3 H Immature Gran % (Auto) 0.2 Neut % (Auto) 44.3 L Lymph % (Auto) 35.3 [place] % (Auto) 11.5 H Eos % (Auto) 8.2 H Baso % (Auto) 0.5 Lymph # (Auto) 2.03 [place] # (Auto) 0.7 H Eos # (Auto) 0.5 H Baso # (Auto) 0.0 Abs Immat Gran (auto) 0.01 Absolute Neuts (auto) 2.6 Absolute Nucleated RBC 0.000 Nucleated RBC % 0.0 POC Capillary Glucose 112 H 102 10/27/24 11:31 WBC RBC Hgb Hct MCV MCH MCHC RDW Plt Count MPV Immature Gran % (Auto) Neut % (Auto) Lymph % (Auto) [place] % (Auto) Eos % (Auto) Baso % (Auto) Lymph # (Auto) [place] # (Auto) Eos # (Auto) Baso # (Auto) Abs Immat Gran (auto) Absolute Neuts (auto) Absolute Nucleated RBC Nucleated RBC % POC Capillary Glucose 95
--- NOTE | 2024-10-27 14:23 | PM.IMPN ---
Progress Note: A&P Assessment and Plan (1) Cholecystitis: Code(s): K81.9 - Cholecystitis, unspecified Status: Acute Assessment and Plan: -Nausea, vomiting, abdominal distension -CT findings of markedly distended gallbladder with layering stones and surrounding free fluid -Lipase highly elevated raising concern for choledocholithiasis with acute pancreatitis -IV Zosyn started in ER -NPO status (except vital medications) -PRN pain and nausea medication -GI and General Surgery consulted by ER provider -MRCP ordered for tomorrow -Hold Eliquis SCDs for VTE prophylaxis -Morning labs ordered -IV fluids given for elevated lipase and highly elevated lactic acid -Ordered STAT procalcitonin, ESR, CRP with daily recheck x3 Surgery noted no intervention needed at this time and monitor on medical management -Awaiting MRCP per GI, will be done on Tuesday (2) Severe sepsis: Code(s): A41.9 - Sepsis, unspecified organism; R65.20 - Severe sepsis without septic shock Status: Acute Assessment and Plan: Due to cholecystitis, see above (3) Pancreatitis: Code(s): K85.90 - Acute pancreatitis without necrosis or infection, unspecified Status: Acute Assessment and Plan: See above, concern for choledocholithiasis started on tueb feeding 20ml/hr, monitor (4) Malfunction of gastrostomy tube: Code(s): K94.23 - Gastrostomy malfunction Status: Acute Assessment and Plan: -CT abdomen pelvis showed G-tube malpositioned too deep within the stomach -This was pulled back by ER provider continue tube feeding (5) History of multiple strokes: Code(s): Z86.73 - Personal history of transient ischemic attack (TIA), and cerebral infarction without residual deficits Status: Chronic Assessment and Plan: -Non-verbal with trach and G-tube chronically due to prior CVAs with significant residual deficits (6) Epilepsy: Code(s): G40.909 - Epilepsy, unspecified, not intractable, without status epilepticus Status: Acute Assessment and Plan: -History of epilepsy, on multiple medications which will be continued Dose adjustment will be done as per neurologist request. Will taper Depakote from t.i.d. to b.i.d. to once a day and will be totally discontinued from Tuesday. Vimpat will be increased from 200 mg p.o. b.i.d. to 250 mg p.o. b.i.d.. And Keppra will be increased from 17 50 mg p.o. b.i.d. to 2 g p.o. b.i.d. (7) Acute lactic acidosis: Code(s): E87.21 - Acute metabolic acidosis Status: Acute Assessment and Plan: -Likely due to severe sepsis related to acute cholecystitis -Improvement on recheck after additional IV fluids patient noted to be lethargic adn nonverbal at baseline Plan DVT prophylaxis on Sq lovenox Subjective Date/time seen: 10/27/24 14:23 Interval history: no changes he has been tolerating [facility] Review of Systems Review of Systems: ROS unobtainable: Yes unobtainable due to mental status Exam Narrative: GENERAL: Chronically ill-appearing, well-nourished, and in no acute distress. HEAD: Normocephalic, atraumatic. EYES: PERRL and EOMI. NECK: Supple. Tracheostomy with no significant plugging of the tube. CHEST: Clear to auscultation. No respiratory distress. HEART: Regular rate and rhythm. Normal peripheral pulses. ABDOMEN: Mildly distended abdomen without significant tenderness. Peg site appears normal. Normal bowel sounds. EXTREMITIES: Right lower extremity in cushion boot. Left AKA. NEURO: Awake, alert, and at neurologic baseline. Objective Data Vital Signs Vital Signs: Vital Signs - 24 hr 10/26/24 14:34 10/26/24 20:42 10/26/24 21:00 Temperature 97.2 F L Pulse Rate 85 Respiratory Rate 20 Blood Pressure 177/86 H Pulse Oximetry 95 99 95 Oxygen Delivery High Flow Therapy with Tr High Flow Therapy with Tr Oxygen Flow Rate 25 25 Fraction of Inspired Oxygen 27 27 10/26/24 22:08 10/27/24 05:24 10/27/24 06:16 Temperature 97.6 F Pulse Rate 82 77 Respiratory Rate 16 Blood Pressure 168/82 H 135/58 L Pulse Oximetry 97 Oxygen Delivery Oxygen Flow Rate Fraction of Inspired Oxygen Intake/Output Intake/Output: Intake & Output 10/24/24 10/25/24 10/26/24 10/27/24 23:59 23:59 23:59 23:59 Intake Total 1900 2196 2130 550 Output Total 3100 2950 2450 1500 [employer] [employer] [facility] -754 -320 -950 Meds/Results Medications: Active Medications Generic Name Dose Route Start Last Admin Trade Name Freq PRN Reason Stop Dose Admin Acetaminophen 325 mg 10/21/24 12:12 10/25/24 12:03 Acetaminophen 325 Mg Suppository RECTAL 325 mg Q4H PRN Administration Mild Pain (1-3) or Fever Albuterol/Ipratropium 3 ml 10/19/24 00:22 Ipratropium 0.5 Mg/Albuterol Sulfate 2.5 Mg Ampul.Neb 3 Ml INHALATION Q6HRT PRN Shortness Of Breath Amlodipine Besylate 5 mg 10/25/24 17:00 10/27/24 10:01 Amlodipine Besylate 5 Mg Tablet FEED TUBE Not Given DAILY [facility] Atorvastatin Calcium 40 mg 10/25/24 21:00 10/26/24 22:14 Atorvastatin 40 Mg Tablet FEED TUBE 40 mg HS TERRELL Administration Bisacodyl 10 mg 10/19/24 00:22 Bisacodyl 10 Mg Suppository RECTAL DAILY PRN Constipation Clobazam 10 mg 10/19/24 09:00 10/21/24 10:07 Clobazam (*Crx) 10 Mg Tablet FEED TUBE Not Given DAILY [facility] Dextrose 12.5 gm 10/20/24 20:45 10/24/24 06:05 Dextrose 50% 25 Gm/50 Ml Syringe IV PUSH 12.5 gm PRN PRN Administration Hypoglycemia Protocol Enoxaparin Sodium 40 mg 10/25/24 09:00 10/27/24 10:01 Enoxaparin 40 Mg/0.4 Ml Syringe SUB-Q Not Given DAILY [facility] Finasteride 5 mg 10/26/24 09:00 Finasteride 5 Mg Tablet FEED TUBE DAILY [facility] Folic Acid 1 mg 10/19/24 09:00 10/21/24 10:07 Folic Acid 1 Mg Tablet FEED TUBE Not Given DAILY [facility] Glucose 15 gm 10/20/24 20:45 Glucose Oral Gel 15 Gm Of Glucse In 37.5 Gm Tube PO PRN PRN Hypoglycemia Protocol Glycopyrrolate 2 mg 10/19/24 00:50 10/21/24 12:14 Glycopyrrolate 1 Mg Tablet FEED TUBE Not Given Q8HR [facility] Hydralazine HCl 10 mg 10/22/24 11:45 10/27/24 05:44 Hydralazine Hcl 20 Mg/Ml Vial IV PUSH 10 mg Q6H PRN Administration Blood Pressure -systolic>160 Hydromorphone HCl 0.5 mg 10/18/24 19:08 10/27/24 10:05 Hydromorphone Hcl Inj (*Crx) 2 Mg/Ml Vial IV PUSH 0.5 mg Q4H PRN Administration Pain Rated 7-10 Lactated Ringer's 1,000 mls @ 60 mls/hr 10/19/24 00:05 10/26/24 02:23 Lr - Lactated Ringers Iv IV CONT 60 mls/hr .[id number] TERRELL Administration Dextrose 1,000 mls @ 100 mls/hr 10/20/24 20:45 Dextrose 5% 1,000 Ml IVPB PRN PRN Hypoglycemia Protocol Levetiracetam 1,000 mg in 100 mls @ 400 mls/hr 10/21/24 12:46 10/27/24 10:12 Keppra Iv IVPB 400 mls/hr Q12HR TERRE[facility] Administration Levetiracetam 1,000 mg in 100 mls @ 400 mls/hr 10/21/24 12:45 10/27/24 10:13 Keppra Iv IVPB 400 mls/hr Q12HR TERRE[facility] Administration Lacosamide 250 mg/ Sodium 100 mls @ 200 mls/hr 10/22/24 11:00 10/27/24 10:59 Chloride IVPB 200 mls/hr Q12HR TERRE[facility] Administration Levofloxacin/Dextrose 750 mg in 150 mls @ 100 mls/hr 10/24/24 12:00 10/26/24 13:07 Levaquin 750 Mg/D5w 150 Ml IVPB 100 mls/hr Q24H TER[facility] Administration Metronidazole 500 mg in 100 mls @ 100 mls/hr 10/24/24 14:00 10/27/24 05:30 Flagyl 500 Mg/Iso Soln 100 Ml IVPB 100 mls/hr Q8HR [facility] Administration Isosorbide Dinitrate 5 mg 10/25/24 17:00 10/27/24 10:04 Isosorbide Dinitrate 5 Mg Tablet FEED TUBE Not Given TID [facility] Lacosamide 200 mg 10/19/24 01:10 10/21/24 12:14 Lacosamide (*Crx) 200 Mg Tablet FEED TUBE Not Given Q12HR [facility] Lacosamide 50 mg 10/20/24 21:00 10/21/24 12:14 Lacosamide (*Crx) 50 Mg Tablet PO Not Given Q12HR [facility] Lansoprazole 30 mg 10/25/24 21:00 10/27/24 11:16 Lansoprazole Odt 30 Mg Tab.Rap.Dr FEED TUBE Not Given Q12H [facility] Lorazepam 2 mg 10/19/24 10:34 Lorazepam Inj (*Crx) 2 Mg/Ml Vial IV PUSH Q4HR PRN Seizure Activity Magnesium Hydroxide 30 ml 10/19/24 00:22 Magnesium Hydroxide Susp 30 Ml Udc PO HS PRN Constipation Metoclopramide HCl 10 mg 10/19/24 09:00 Metoclopramide Hcl 10 Mg Tablet FEED TUBE TID [facility] Metoclopramide HCl 5 mg 10/22/24 14:19 Metoclopramide Hcl Inj 10 Mg/2 Ml Vial IV PUSH Q6HR PRN Vomiting Metoprolol Tartrate 25 mg 10/19/24 00:25 10/21/24 10:08 Metoprolol Tartrate 25 Mg Tablet FEED TUBE Not Given Q12HR [facility] Metoprolol Tartrate 5 mg 10/21/24 12:55 10/27/24 10:06 Metoprolol Tartrate Inj 5 Mg/5 Ml Vial IV PUSH 5 mg Q12HR TERRE[facility] Administration Ondansetron HCl 4 mg 10/18/24 19:08 10/26/24 04:42 Ondansetron Inj 4 Mg/2 Ml Vial IV PUSH 4 mg Q4H PRN Administration Nausea Scopolamine 1 patch 10/22/24 09:00 10/25/24 09:40 Scopolamine 1 Mg Patch TRANSDERM 1 patch Q72HR [facility] Administration Senna 8.6 mg 10/19/24 09:00 10/21/24 12:14 Sennosides 8.6 Mg Tablet FEED TUBE Not Given BID [facility] Thiamine HCl 100 mg 10/19/24 09:00 10/21/24 10:08 Thiamine Hcl 100 Mg Tablet FEED TUBE Not Given DAILY [facility] Radiology Results: ITS Impressions Abdomen CT 10/18/24 22:58 IMPRESSION: Findings consistent with (likely) gallstone pancreatitis, as detailed above. Imaging findings are now much clearer after fluid resuscitation. Redemonstration of a percutaneous gastrostomy with its balloon extending to the level of the pylorus, rather than immediately beneath the undersurface of the anterior abdominal wall for which withdrawal of 4.9 cm (with the balloon continuously inflated) is recommended for optimal radiographic placement. Abdomen X-Ray 10/22/24 12:31 IMPRESSION: Decreased air opacification of the colon, when compared with previous days examination. No air is identified within the rectum. Abdomen/Pelvis CT 10/23/24 11:47 IMPRESSION: Findings consistent with patient's known history of acute pancreatitis. The gallbladder is now decompressed. Rather than percutaneous cholecystostomy with cholangiography, would recommend MRCP (in this patient with normal renal function) for further evaluation of the biliary tree. Abdomen Ultrasound 10/24/24 05:44 Impression: Limited exam due to bowel gas shadowing and body habitus. No definite evidence for cholecystitis. No significant abnormality identified. Labs Labs: Laboratory Results - last 24 hr 10/27/24 10/27/24 10/27/24 00:08 05:27 05:58 WBC 5.8 RBC 3.76 L Hgb 12.0 L Hct 37.4 L MCV 99.5 MCH 31.9 MCHC 32.1 RDW 13.3 Plt Count 235 MPV 12.3 H Immature Gran % (Auto) 0.2 Neut % (Auto) 44.3 L Lymph % (Auto) 35.3 [place] % (Auto) 11.5 H Eos % (Auto) 8.2 H Baso % (Auto) 0.5 Lymph # (Auto) 2.03 [place] # (Auto) 0.7 H Eos # (Auto) 0.5 H Baso # (Auto) 0.0 Abs Immat Gran (auto) 0.01 Absolute Neuts (auto) 2.6 Absolute Nucleated RBC 0.000 Nucleated RBC % 0.0 POC Capillary Glucose 112 H 102 10/27/24 11:31 WBC RBC Hgb Hct MCV MCH MCHC RDW Plt Count MPV Immature Gran % (Auto) Neut % (Auto) Lymph % (Auto) [place] % (Auto) Eos % (Auto) Baso % (Auto) Lymph # (Auto) [place] # (Auto) Eos # (Auto) Baso # (Auto) Abs Immat Gran (auto) Absolute Neuts (auto) Absolute Nucleated RBC Nucleated RBC % POC Capillary Glucose 95 Quality VTE Prophylaxis VTE prophylaxis: mechanical ordered
[2024-10-27] MEDS: levoFLOXacin 750 MG/D5W 150 ML 750 MG/150 ML BAG 100 MG IVPB (16:21)
[2024-10-27] MEDS: ISOSORBIDE DINITRATE 5 MG TABLET FEED TUBE (16:37)
[2024-10-27 18:06] LABS: Glucose Point of Care 111 mg/dl (65-105)
[2024-10-27] MEDS: ACETAMINOPHEN 325 MG SUPPOSITORY RECTAL (21:32)
[2024-10-27] MEDS: LANSOPRAZOLE ODT 30 MG TAB.RAP.DR FEED TUBE (21:50)
[2024-10-27] MEDS: ATORVASTATIN 40 MG TABLET FEED TUBE (21:52)
[2024-10-28] MEDS: HYDROmorphone HCL INJ (*CRX) 2 MG/ML VIAL 0.5 MG IV PUSH (02:45)
[2024-10-28] MEDS: LACTATED RINGERS 1,000 ML 60 ML IV CONT ×2 (04:42→21:56)
[2024-10-28] MEDS: hydrALAZINE HCL 20 MG/ML VIAL 10 MG IV PUSH (05:12)
[2024-10-28] MEDS: metroNIDAZOLE 500 MG/ISO 100ML 500 MG/100 ML BAG 100 MG IVPB ×3 (05:13→21:54)
[2024-10-28 05:54] VITALS: BP 166/105; PULSE 81; RESP 16; TEMP 36.2; O2SAT 97
[2024-10-28 08:03] VITALS: O2SAT 94
--- NOTE | 2024-10-28 09:27 | P.PNIM_ITS ---
Progress Note: A&P Assessment and Plan (1) Cholecystitis: Code(s): K81.9 - Cholecystitis, unspecified Status: Acute Assessment and Plan: -Nausea, vomiting, abdominal distension -CT findings of markedly distended gallbladder with layering stones and surrounding free fluid -Lipase highly elevated raising concern for choledocholithiasis with acute pancreatitis -IV Zosyn started in ER -NPO status (except vital medications) -PRN pain and nausea medication -GI and General Surgery consulted by ER provider -MRCP ordered for tomorrow -Hold Eliqusalas SCDs for VTE prophylaxis -Morning labs ordered -IV fluids given for elevated lipase and highly elevated lactic acid -Ordered STAT procalcitonin, ESR, CRP with daily recheck x3 Surgery noted no intervention needed at this time and monitor on medical management -Awaiting MRCP report GI on board (2) Severe sepsis: Code(s): A41.9 - Sepsis, unspecified organism; R65.20 - Severe sepsis without septic shock Status: Acute Assessment and Plan: Due to cholecystitis, see above (3) Pancreatitis: Code(s): K85.90 - Acute pancreatitis without necrosis or infection, unspecified Status: Acute Assessment and Plan: See above, concern for choledocholithiasis started on tueb feeding 20ml/hr, monitor (4) Malfunction of gastrostomy tube: Code(s): K94.23 - Gastrostomy malfunction Status: Acute Assessment and Plan: -CT abdomen pelvis showed G-tube malpositioned too deep within the stomach -This was pulled back by ER provider continue tube feeding (5) History of multiple strokes: Code(s): Z86.73 - Personal history of transient ischemic attack (TIA), and cerebral infarction without residual deficits Status: Chronic Assessment and Plan: -Non-verbal with trach and G-tube chronically due to prior CVAs with significant residual deficits (6) Epilepsy: Code(s): G40.909 - Epilepsy, unspecified, not intractable, without status epilepticus Status: Acute Assessment and Plan: -History of epilepsy, on multiple medications which will be continued Dose adjustment will be done as per neurologist request. Will taper Depakote from t.i.d. to b.i.d. to once a day and will be totally discontinued from Tuesday. Vimpat will be increased from 200 mg p.o. b.i.d. to 250 mg p.o. b.i.d.. And Keppra will be increased from 17 50 mg p.o. b.i.d. to 2 g p.o. b.i.d. (7) Acute lactic acidosis: Code(s): E87.21 - Acute metabolic acidosis Status: Acute Assessment and Plan: -Likely due to severe sepsis related to acute cholecystitis -Improvement on recheck after additional IV fluids patient noted to be lethargic adn nonverbal at baseline Plan DVT prophylaxis on Sq lovenox Subjective Date/time seen: 10/28/24 09:27 Interval history: comfortable at bedside he has been tolerating tube feeding awaiting MRCP report Review of Systems Review of Systems: ROS unobtainable: Yes unobtainable due to mental status Exam Narrative: GENERAL: Chronically ill-appearing, well-nourished, and in no acute distress. HEAD: Normocephalic, atraumatic. EYES: PERRL and EOMI. NECK: Supple. Tracheostomy with no significant plugging of the tube. CHEST: Clear to auscultation. No respiratory distress. HEART: Regular rate and rhythm. Normal peripheral pulses. ABDOMEN: Mildly distended abdomen without significant tenderness. Peg site appears normal. Normal bowel sounds. EXTREMITIES: Right lower extremity in cushion boot. Left AKA. NEURO: Awake, alert, and at neurologic baseline. Objective Data Vital Signs Vital Signs: Vital Signs - 24 hr 10/27/24 14:00 10/27/24 16:48 10/27/24 20:00 Temperature 97.6 F Pulse Rate 76 Respiratory Rate 14 Blood Pressure 159/93 H Pulse Oximetry 98 97 Oxygen Delivery High Flow Therapy with Tr Trach Collar Oxygen Flow Rate 25 Fraction of Inspired Oxygen 10/27/24 20:29 10/27/24 21:52 10/27/24 22:15 Temperature 96.8 F L Pulse Rate 82 78 Respiratory Rate 16 Blood Pressure 155/58 H Pulse Oximetry 96 94 Oxygen Delivery High Flow Therapy with Tr Oxygen Flow Rate 25 Fraction of Inspired Oxygen 21 10/28/24 05:54 10/28/24 08:03 Temperature 97.1 F L Pulse Rate 81 Respiratory Rate 16 Blood Pressure 166/105 H Pulse Oximetry 97 94 Oxygen Delivery High Flow Therapy with Tr Oxygen Flow Rate 25 Fraction of Inspired Oxygen 21 Intake/Output Intake/Output: Intake & Output 10/25/24 10/26/24 10/27/24 10/28/24 23:59 23:59 23:59 23:59 Intake Total 2196 3280 1250 100 Output Total 2950 2450 1850 625 Balance -754 830 -600 -980 Meds/Results Medications: Active Medications Generic Name Dose Route Start Last Admin Trade Name Freq PRN Reason Stop Dose Admin Acetaminophen 325 mg 10/21/24 12:12 10/27/24 21:32 Acetaminophen 325 Mg Suppository RECTAL 325 mg Q4H PRN Administration Mild Pain (1-3) or Fever Albuterol/Ipratropium 3 ml 10/19/24 00:22 Ipratropium 0.5 Mg/Albuterol Sulfate 2.5 Mg Ampul.Neb 3 Ml INHALATION Q6HRT PRN Shortness Of Breath Amlodipine Besylate 5 mg 10/25/24 17:00 10/27/24 10:01 Amlodipine Besylate 5 Mg Tablet FEED TUBE Not Given DAILY [facility] Atorvastatin Calcium 40 mg 10/25/24 21:00 10/27/24 21:52 Atorvastatin 40 Mg Tablet FEED TUBE 40 mg HS [facility] Administration Bisacodyl 10 mg 10/19/24 00:22 Bisacodyl 10 Mg Suppository RECTAL DAILY PRN Constipation Clobazam 10 mg 10/19/24 09:00 10/21/24 10:07 Clobazam (*Crx) 10 Mg Tablet FEED TUBE Not Given DAILY [facility] Dextrose 12.5 gm 10/20/24 20:45 10/24/24 06:05 Dextrose 50% 25 Gm/50 Ml Syringe IV PUSH 12.5 gm PRN PRN Administration Hypoglycemia Protocol Enoxaparin Sodium 40 mg 10/25/24 09:00 10/27/24 10:01 Enoxaparin 40 Mg/0.4 Ml Syringe SUB-Q Not Given DAILY [facility] Finasteride 5 mg 10/26/24 09:00 Finasteride 5 Mg Tablet FEED TUBE DAILY [facility] Folic Acid 1 mg 10/19/24 09:00 10/21/24 10:07 Folic Acid 1 Mg Tablet FEED TUBE Not Given DAILY [facility] Glucose 15 gm 10/20/24 20:45 Glucose Oral Gel 15 Gm Of Glucse In 37.5 Gm Tube PO PRN PRN Hypoglycemia Protocol Glycopyrrolate 2 mg 10/19/24 00:50 10/21/24 12:14 Glycopyrrolate 1 Mg Tablet FEED TUBE Not Given Q8HR [facility] Hydralazine HCl 10 mg 10/22/24 11:45 10/28/24 05:12 Hydralazine Hcl 20 Mg/Ml Vial IV PUSH 10 mg Q6H PRN Administration Blood Pressure -systolic>160 Hydromorphone HCl 0.5 mg 10/18/24 19:08 10/28/24 02:45 Hydromorphone Hcl Inj (*Crx) 2 Mg/Ml Vial IV PUSH 0.5 mg Q4H PRN Administration Pain Rated 7-10 Lactated Ringer's 1,000 mls @ 60 mls/hr 10/19/24 00:05 10/28/24 04:42 Lr - Lactated Ringers Iv IV CONT 60 mls/hr .[id number] [facility] Administration Dextrose 1,000 mls @ 100 mls/hr 10/20/24 20:45 Dextrose 5% 1,000 Ml IVPB PRN PRN Hypoglycemia Protocol Levetiracetam 1,000 mg in 100 mls @ 400 mls/hr 10/21/24 12:46 10/27/24 22:00 Keppra Iv IVPB Infused Q12HR [facility] Infusion Levetiracetam 1,000 mg in 100 mls @ 400 mls/hr 10/21/24 12:45 10/27/24 22:01 Keppra Iv IVPB Infused Q12HR [facility] Infusion Lacosamide 250 mg/ Sodium 100 mls @ 200 mls/hr 10/22/24 11:00 10/27/24 22:14 Chloride IVPB Infused Q12HR [facility] Infusion Levofloxacin/Dextrose 750 mg in 150 mls @ 100 mls/hr 10/24/24 12:00 10/27/24 16:21 Levaquin 750 Mg/D5w 150 Ml IVPB 100 mls/hr Q24H [facility] Administration Metronidazole 500 mg in 100 mls @ 100 mls/hr 10/24/24 14:00 10/28/24 06:13 Flagyl 500 Mg/Iso Soln 100 Ml IVPB Infused Q8HR [facility] Infusion Isosorbide Dinitrate 5 mg 10/25/24 17:00 10/27/24 16:37 Isosorbide Dinitrate 5 Mg Tablet FEED TUBE 5 mg TID [facility] Administration Lacosamide 200 mg 10/19/24 01:10 10/21/24 12:14 Lacosamide (*Crx) 200 Mg Tablet FEED TUBE Not Given Q12HR [facility] Lacosamide 50 mg 10/20/24 21:00 10/21/24 12:14 Lacosamide (*Crx) 50 Mg Tablet PO Not Given Q12HR [facility] Lansoprazole 30 mg 10/25/24 21:00 10/27/24 21:50 Lansoprazole Odt 30 Mg Tab.Rap.Dr FEED TUBE 30 mg Q12H [facility] Administration Lorazepam 2 mg 10/19/24 10:34 Lorazepam Inj (*Crx) 2 Mg/Ml Vial IV PUSH Q4HR PRN Seizure Activity Magnesium Hydroxide 30 ml 10/19/24 00:22 Magnesium Hydroxide Susp 30 Ml Udc PO HS PRN Constipation Metoclopramide HCl 10 mg 10/19/24 09:00 Metoclopramide Hcl 10 Mg Tablet FEED TUBE TID [facility] Metoclopramide HCl 5 mg 10/22/24 14:19 Metoclopramide Hcl Inj 10 Mg/2 Ml Vial IV PUSH Q6HR PRN Vomiting Metoprolol Tartrate 25 mg 10/19/24 00:25 10/21/24 10:08 Metoprolol Tartrate 25 Mg Tablet FEED TUBE Not Given Q12HR [facility] Metoprolol Tartrate 5 mg 10/21/24 12:55 10/27/24 21:52 Metoprolol Tartrate Inj 5 Mg/5 Ml Vial IV PUSH 5 mg Q12HR [facility] Administration Miscellaneous Information 0 each 10/27/24 00:01 Dilaudid Renew If Still Needs Or Will Auto D/C XX 11/26/24 00:00 CLARIFY [facility] Ondansetron HCl 4 mg 10/18/24 19:08 10/26/24 04:42 Ondansetron Inj 4 Mg/2 Ml Vial IV PUSH 4 mg Q4H PRN Administration Nausea Scopolamine 1 patch 10/22/24 09:00 10/25/24 09:40 Scopolamine 1 Mg Patch TRANSDERM 1 patch Q72HR [facility] Administration Senna 8.6 mg 10/19/24 09:00 10/21/24 12:14 Sennosides 8.6 Mg Tablet FEED TUBE Not Given BID [facility] Thiamine HCl 100 mg 10/19/24 09:00 10/21/24 10:08 Thiamine Hcl 100 Mg Tablet FEED TUBE Not Given DAILY [facility] Radiology Results: ITS Impressions Abdomen CT 10/18/24 22:58 IMPRESSION: Findings consistent with (likely) gallstone pancreatitis, as detailed above. Imaging findings are now much clearer after fluid resuscitation. Redemonstration of a percutaneous gastrostomy with its balloon extending to the level of the pylorus, rather than immediately beneath the undersurface of the anterior abdominal wall for which withdrawal of 4.9 cm (with the balloon continuously inflated) is recommended for optimal radiographic placement. Abdomen X-Ray 10/22/24 12:31 IMPRESSION: Decreased air opacification of the colon, when compared with previous days examination. No air is identified within the rectum. Abdomen/Pelvis CT 10/23/24 11:47 IMPRESSION: Findings consistent with patient's known history of acute pancreatitis. The gallbladder is now decompressed. Rather than percutaneous cholecystostomy with cholangiography, would recommend MRCP (in this patient with normal renal function) for further evaluation of the biliary tree. Abdomen Ultrasound 10/24/24 05:44 Impression: Limited exam due to bowel gas shadowing and body habitus. No definite evidence for cholecystitis. No significant abnormality identified. Labs Labs: Laboratory Results - last 24 hr 10/27/24 10/27/24 11:31 18:03 POC Capillary Glucose 95 111 H Quality VTE Prophylaxis VTE prophylaxis: mechanical ordered
[2024-10-28] MEDS: LANSOPRAZOLE ODT 30 MG TAB.RAP.DR FEED TUBE ×2 (09:28→21:54)
[2024-10-28] MEDS: SCOPOLAMINE 1 MG PATCH 1 PATCH TRANSDERM (09:28)
[2024-10-28] MEDS: levETIRAcetam 1000MG/NACL100ML 1,000 MG/100 ML BAG 400 MG IVPB ×4 (09:28→21:56)
[2024-10-28] MEDS: ISOSORBIDE DINITRATE 5 MG TABLET FEED TUBE ×3 (09:28→17:30)
[2024-10-28] MEDS: amLODIPine BESYLATE 5 MG TABLET FEED TUBE (09:29)
[2024-10-28] MEDS: METOPROLOL TARTRATE INJ 5 MG/5 ML VIAL IV PUSH ×2 (09:29→21:59)
[2024-10-28] MEDS: ENOXAPARIN 40 MG/0.4 ML SYRINGE SUB-Q (09:29)
[2024-10-28] MEDS: SODIUM CHLORIDE 0.9% IVPB ×2 (10:32→21:47)
[2024-10-28] MEDS: LACOSAMIDE IVPB ×2 (10:32→21:47)
[2024-10-28 12:08] LABS: Glucose Point of Care 112 mg/dl (65-105)
[2024-10-28] MEDS: levoFLOXacin 750 MG/D5W 150 ML 750 MG/150 ML BAG 100 MG IVPB (12:52)
[2024-10-28 13:31] VITALS: BP 155/76; PULSE 100; RESP 16; TEMP 36.7; O2SAT 100
--- NOTE | 2024-10-28 14:58 | WPDGIPROGNO ---
Progress Note: A&P Assessment and Plan (1) Pancreatitis: Code(s): K85.90 - Acute pancreatitis without necrosis or infection, unspecified Status: Acute Assessment and Plan: resolved mrcp c/w pancreatitis, showed pancreas divisum, no stone in bile duct- no need of ercp liver enzymes normal he is not surgical candidate and has been tolerating tube feeding by g-tube now he used to have g-j tube because gastroparesis (if family would like to replace then will need follow-up at [facility]- we do not exchange g-j tube here) but thus far it seems that he has been tolerating feeding will follow as needed, no objections to discharge by gi standpoint (2) Cholecystitis: Code(s): K81.9 - Cholecystitis, unspecified Status: Acute Assessment and Plan: treated medically IR was unable to place cholecystostomy tube (collapsed GB) (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 (4) Gastroparesis: Code(s): K31.84 - Gastroparesis Status: Acute (5) Aphasia: Code(s): R47.01 - Aphasia Status: Chronic (6) Cerebrovascular accident: Code(s): I63.9 - Cerebral infarction, unspecified Status: Chronic Subjective Date/time seen: 10/28/24 14:58 Interval history: no changes, tolerating tube feeding at 40 ml/h Review of Systems Review of Systems: All systems reviewed & are unremarkable except as noted in HPI and below Exam Const: General: comfortable and no acute distress Other: unable to get history HENMT: Face/Nose/Sinus: Normal nares present Eyes: Sclera: sclerae normal Neck: Other: trach in place Resp: Effort & Inspection: normal respiratory effort Auscultation: clear to auscultation bilaterally Cardio: Rate: regular rate Rhythm: regular rhythm GI: GI Palp: Yes Soft to palpation and No Tenderness to palpation present (GI) Auscultation: normal bowel sounds Other: G-tube in position Skin: General skin exam: normal color Neuro: Other: aphasia Extrem: General: no edema Other: Left AKA Psych: Other: unable to assess Objective Data Vital Signs Vital Signs: Vital Signs - 24 hr 10/27/24 16:48 10/27/24 20:00 10/27/24 20:29 Temperature 96.8 F L Pulse Rate 82 Respiratory Rate 16 Blood Pressure 155/58 H Pulse Oximetry 97 96 Oxygen Delivery High Flow Therapy with Tr Trach Collar Oxygen Flow Rate 25 Fraction of Inspired Oxygen 10/27/24 21:52 10/27/24 22:15 10/28/24 05:54 Temperature 97.1 F L Pulse Rate 78 81 Respiratory Rate 16 Blood Pressure 166/105 H Pulse Oximetry 94 97 Oxygen Delivery High Flow Therapy with Tr Oxygen Flow Rate 25 Fraction of Inspired Oxygen 21 10/28/24 08:03 10/28/24 13:31 Temperature 98.0 F Pulse Rate 100 Respiratory Rate 16 Blood Pressure 155/76 H Pulse Oximetry 94 100 Oxygen Delivery High Flow Therapy with Tr Oxygen Flow Rate 25 Fraction of Inspired Oxygen 21 Intake/Output Intake/Output: Intake & Output 10/25/24 10/26/24 10/27/24 10/28/24 23:59 23:59 23:59 23:59 Intake Total 2196 3280 1400 100 Output Total 2950 2450 1850 1450 Balance -754 830 -450 -1350 Meds/Results Medications: Active Medications Generic Name Dose Route Start Last Admin Trade Name Freq PRN Reason Stop Dose Admin Acetaminophen 325 mg 10/21/24 12:12 10/27/24 21:32 Acetaminophen 325 Mg Suppository RECTAL 325 mg Q4H PRN Administration Mild Pain (1-3) or Fever Albuterol/Ipratropium 3 ml 10/19/24 00:22 Ipratropium 0.5 Mg/Albuterol Sulfate 2.5 Mg Ampul.Neb 3 Ml INHALATION Q6HRT PRN Shortness Of Breath Amlodipine Besylate 5 mg 10/25/24 17:00 10/28/24 09:29 Amlodipine Besylate 5 Mg Tablet FEED TUBE 5 mg DAILY [facility] Administration Atorvastatin Calcium 40 mg 10/25/24 21:00 10/27/24 21:52 Atorvastatin 40 Mg Tablet FEED TUBE 40 mg HS [facility] Administration Bisacodyl 10 mg 10/19/24 00:22 Bisacodyl 10 Mg Suppository RECTAL DAILY PRN Constipation Clobazam 10 mg 10/19/24 09:00 10/21/24 10:07 Clobazam (*Crx) 10 Mg Tablet FEED TUBE Not Given DAILY [facility] Dextrose 12.5 gm 10/20/24 20:45 10/24/24 06:05 Dextrose 50% 25 Gm/50 Ml Syringe IV PUSH 12.5 gm PRN PRN Administration Hypoglycemia Protocol Enoxaparin Sodium 40 mg 10/25/24 09:00 10/28/24 09:29 Enoxaparin 40 Mg/0.4 Ml Syringe SUB-Q 40 mg DAILY [facility] Administration Finasteride 5 mg 10/26/24 09:00 Finasteride 5 Mg Tablet FEED TUBE DAILY [facility] Folic Acid 1 mg 10/19/24 09:00 10/21/24 10:07 Folic Acid 1 Mg Tablet FEED TUBE Not Given DAILY [facility] Glucose 15 gm 10/20/24 20:45 Glucose Oral Gel 15 Gm Of Glucse In 37.5 Gm Tube PO PRN PRN Hypoglycemia Protocol Glycopyrrolate 2 mg 10/19/24 00:50 10/21/24 12:14 Glycopyrrolate 1 Mg Tablet FEED TUBE Not Given Q8HR [facility] Hydralazine HCl 10 mg 10/22/24 11:45 10/28/24 05:12 Hydralazine Hcl 20 Mg/Ml Vial IV PUSH 10 mg Q6H PRN Administration Blood Pressure -systolic>160 Hydromorphone HCl 0.5 mg 10/18/24 19:08 10/28/24 02:45 Hydromorphone Hcl Inj (*Crx) 2 Mg/Ml Vial IV PUSH 0.5 mg Q4H PRN Administration Pain Rated 7-10 Lactated Ringer's 1,000 mls @ 60 mls/hr 10/19/24 00:05 10/28/24 04:42 Lr - Lactated Ringers Iv IV CONT 60 mls/hr .[id number] [facility] Administration Dextrose 1,000 mls @ 100 mls/hr 10/20/24 20:45 Dextrose 5% 1,000 Ml IVPB PRN PRN Hypoglycemia Protocol Levetiracetam 1,000 mg in 100 mls @ 400 mls/hr 10/21/24 12:46 10/28/24 09:28 Keppra Iv IVPB 400 mls/hr Q12HR [facility] Administration Levetiracetam 1,000 mg in 100 mls @ 400 mls/hr 10/21/24 12:45 10/28/24 10:04 Keppra Iv IVPB 400 mls/hr Q12HR [facility] Administration Lacosamide 250 mg/ Sodium 100 mls @ 200 mls/hr 10/22/24 11:00 10/28/24 10:32 Chloride IVPB 200 mls/hr Q12HR [facility] Administration Levofloxacin/Dextrose 750 mg in 150 mls @ 100 mls/hr 10/24/24 12:00 10/28/24 12:52 Levaquin 750 Mg/D5w 150 Ml IVPB 100 mls/hr Q24H [facility] Administration Metronidazole 500 mg in 100 mls @ 100 mls/hr 10/24/24 14:00 10/28/24 14:30 Flagyl 500 Mg/Iso Soln 100 Ml IVPB 100 mls/hr Q8HR [facility] Administration Isosorbide Dinitrate 5 mg 10/25/24 17:00 10/28/24 12:52 Isosorbide Dinitrate 5 Mg Tablet FEED TUBE 5 mg TID [facility] Administration Lacosamide 200 mg 10/19/24 01:10 10/21/24 12:14 Lacosamide (*Crx) 200 Mg Tablet FEED TUBE Not Given Q12HR [facility] Lacosamide 50 mg 10/20/24 21:00 10/21/24 12:14 Lacosamide (*Crx) 50 Mg Tablet PO Not Given Q12HR [facility] Lansoprazole 30 mg 10/25/24 21:00 10/28/24 09:28 Lansoprazole Odt 30 Mg Tab.Rap.Dr FEED TUBE 30 mg Q12H [facility] Administration Lorazepam 2 mg 10/19/24 10:34 Lorazepam Inj (*Crx) 2 Mg/Ml Vial IV PUSH Q4HR PRN Seizure Activity Magnesium Hydroxide 30 ml 10/19/24 00:22 Magnesium Hydroxide Susp 30 Ml Udc PO HS PRN Constipation Metoclopramide HCl 10 mg 10/19/24 09:00 Metoclopramide Hcl 10 Mg Tablet FEED TUBE TID [facility] Metoclopramide HCl 5 mg 10/22/24 14:19 Metoclopramide Hcl Inj 10 Mg/2 Ml Vial IV PUSH Q6HR PRN Vomiting Metoprolol Tartrate 25 mg 10/19/24 00:25 10/21/24 10:08 Metoprolol Tartrate 25 Mg Tablet FEED TUBE Not Given Q12HR [facility] Metoprolol Tartrate 5 mg 10/21/24 12:55 10/28/24 09:29 Metoprolol Tartrate Inj 5 Mg/5 Ml Vial IV PUSH 5 mg Q12HR [facility] Administration Miscellaneous Information 0 each 10/27/24 00:01 Dilaudid Renew If Still Needs Or Will Auto D/C XX 11/26/24 00:00 CLARIFY [facility] Miscellaneous Information 1 each 10/28/24 00:01 Lorazepam Needs To Be Renewed Or It Will Automatically Discontinue. XX 11/27/24 00:00 CLARIFY [facility] Ondansetron HCl 4 mg 10/18/24 19:08 10/26/24 04:42 Ondansetron Inj 4 Mg/2 Ml Vial IV PUSH 4 mg Q4H PRN Administration Nausea Scopolamine 1 patch 10/22/24 09:00 10/28/24 09:28 Scopolamine 1 Mg Patch TRANSDERM 1 patch Q72HR [facility] Administration Senna 8.6 mg 10/19/24 09:00 10/21/24 12:14 Sennosides 8.6 Mg Tablet FEED TUBE Not Given BID [facility] Thiamine HCl 100 mg 10/19/24 09:00 10/21/24 10:08 Thiamine Hcl 100 Mg Tablet FEED TUBE Not Given DAILY [facility] Radiology Results: ITS Impressions Abdomen CT 10/18/24 22:58 IMPRESSION: Findings consistent with (likely) gallstone pancreatitis, as detailed above. Imaging findings are now much clearer after fluid resuscitation. Redemonstration of a percutaneous gastrostomy with its balloon extending to the level of the pylorus, rather than immediately beneath the undersurface of the anterior abdominal wall for which withdrawal of 4.9 cm (with the balloon continuously inflated) is recommended for optimal radiographic placement. Abdomen X-Ray 10/22/24 12:31 IMPRESSION: Decreased air opacification of the colon, when compared with previous days examination. No air is identified within the rectum. Abdomen/Pelvis CT 10/23/24 11:47 IMPRESSION: Findings consistent with patient's known history of acute pancreatitis. The gallbladder is now decompressed. Rather than percutaneous cholecystostomy with cholangiography, would recommend MRCP (in this patient with normal renal function) for further evaluation of the biliary tree. Abdomen Ultrasound 10/24/24 05:44 Impression: Limited exam due to bowel gas shadowing and body habitus. No definite evidence for cholecystitis. No significant abnormality identified. MRCP 10/28/24 13:36 IMPRESSION: 1. Acute interstitial pancreatitis. The pancreas which may be related to normal anatomic variant pancreas divisum. 2. Normal gallbladder and intra and extrahepatic bile ducts with no cholelithiasis/choledocholithiasis or biliary ductal dilation. 3. Small bilateral pleural effusions with dependent consolidation the bilateral lower lobes which could represent atelectasis or pneumonia. 4. Percutaneous gastrostomy tube bulb in the distal body the stomach. Labs Labs: Laboratory Results - last 24 hr 10/27/24 10/28/24 18:03 12:02 POC Capillary Glucose 111 H 112 H
[2024-10-28 18:46] LABS: Glucose Point of Care 111 mg/dl (65-105)
[2024-10-28 19:30] VITALS: PULSE 101; RESP 20; O2SAT 94
[2024-10-28 21:41] VITALS: BP 133/85; PULSE 98; RESP 20; TEMP 36.2; O2SAT 100
[2024-10-28] MEDS: ATORVASTATIN 40 MG TABLET FEED TUBE (21:54)
[2024-10-29 01:06] VITALS: PULSE 97; RESP 20; O2SAT 97
[2024-10-29 04:16] VITALS: PULSE 100; RESP 20; O2SAT 97
[2024-10-29 06:00] VITALS: BP 138/77; PULSE 89; RESP 24; TEMP 36.3; O2SAT 94
[2024-10-29 06:31] LABS: Basophils Percent Auto 0.6 % (0.2-1.2); Eosinophils Absolute Auto 0.3 K/mm3 (0-0.3); Eosinophils Percent Auto 6.1 % (0-4.4); Hematocrit 35.3 % (42.0-52.0); Hemoglobin 11.3 g/dL (14.0-18.0); Immature Granulocyte Absolute 0.02 K/mm3 (0.00-0.031); Immature Granulocyte Percent A 0.4 % (0-0.5); Lymphocytes Absolute Auto 2.27 K/mm3 (0.9-3.2); Mean Platelet Volume 11.4 fl (7.4-10.4); Monocytes Absolute Auto 0.7 K/mm3 (0.1-0.6); Monocytes Percent Auto 13.4 % (2.6-8.5); Neutrophils Absolute Auto 1.9 K/mm3 (1.3-6.7); Neutrophils Percent Auto 36.5 % (45.5-73.1); Platelet Count Result 228 k/mm3 (150-375); Red Blood Count 3.53 M/mm3 (4.6-6.20); Red Cell Distribution Width 13.6 % (11.5-14.5); White Blood Count 5.3 K/mm3 (4.5-10.0)
[2024-10-29 06:46] LABS: Alanine Aminotransferase 23 U/L (6-50); Albumin Level 3.3 g/dL (3.5-5.1); Alkaline Phosphatase 79 U/L (38-126); Anion Gap 9 mmol/L (4-12); Aspartate Amino Transferase 28 U/L (17-59); Bilirubin,Total 0.2 mg/dL (0.2-1.3); Blood Urea Nitrogen 8 mg/dL (9-20); Calcium 9.2 mg/dL (8.4-10.2); Carbon Dioxide 23 mmol/L (22-30); Chloride 109 mmol/L (98-107); Estimated CRCL calculation 121 ml/min; Estimated Glomerular Filt Rate > 60; Glucose 127 mg/dL (65-110); Magnesium 1.8 mg/dL (1.6-2.3); Potassium 3.5 mmol/L (3.4-5.0); Sodium 141 mmol/L (137-145)
[2024-10-29] MEDS: metroNIDAZOLE 500 MG/ISO 100ML 500 MG/100 ML BAG 100 MG IVPB (06:47)
[2024-10-29] MEDS: METOPROLOL TARTRATE INJ 5 MG/5 ML VIAL IV PUSH (10:07)
[2024-10-29] MEDS: ISOSORBIDE DINITRATE 5 MG TABLET FEED TUBE ×2 (10:08→12:52)
[2024-10-29] MEDS: ENOXAPARIN 40 MG/0.4 ML SYRINGE SUB-Q (10:08)
[2024-10-29] MEDS: LANSOPRAZOLE ODT 30 MG TAB.RAP.DR FEED TUBE (10:08)
[2024-10-29] MEDS: amLODIPine BESYLATE 5 MG TABLET FEED TUBE (10:08)
[2024-10-29] MEDS: levETIRAcetam 1000MG/NACL100ML 1,000 MG/100 ML BAG 400 MG IVPB ×2 (10:09→10:38)
[2024-10-29 11:29] VITALS: PULSE 75; RESP 20; O2SAT 94
[2024-10-29] MEDS: SODIUM CHLORIDE 0.9% IVPB (11:51)
[2024-10-29] MEDS: LACOSAMIDE IVPB (11:51)
[2024-10-29 12:08] LABS: Glucose Point of Care 107 mg/dl (65-105)
[2024-10-29] MEDS: levoFLOXacin 750 MG TABLET PO (12:51)
[2024-10-29] MEDS: metroNIDAZOLE 500 MG TABLET PO (13:37)
--- NOTE | 2024-10-29 13:39 | P.DS_ITS ---
DS: Admitting Diagnosis Discharge Date 10/29/24 Admitting Diagnosis Acute cholecystitis/Pancreatitis, Seizure, Dehydration DS: Discharge Diagnosis Discharge Diagnosis (1) Cholecystitis: Code(s): K81.9 - Cholecystitis, unspecified Status: Acute (2) Seizures: Code(s): R56.9 - Unspecified convulsions Status: Acute DS: Summary Hospital Course Hospital Course: 64 year old male patient who is resident of local skilled nursing admitted to the hospital for findings of acute cholecystitis with concern for choledocholithiasis given concurrent finding of highly elevated lipase. Patient found to be tachycardic and tachypneic with elevated WBC and severely elevated lactic acid qualifying for severe sepsis. IV Zosyn initiated in ER. GI and General Surgery consulted with MRCP and NPO status ordered. Patient will be managed with IV antibiotics, pain and nausea medications as well as IV conversion of anti-epileptic medications. Additionally G-tube was found to be malpositioned via CT scan and ER provider repositioned this after imaging findings. Patient has a history of prior CVAs leaving him with profound deficits including trach and G-tube dependency. He has also undergone left above the knee amputation. He has history of atrial fibrillation and is usually on Eliquis which will be held. Patient was seen yesterday at [facility] ER with similar symptoms and reportedly had normal appearing CT scan and was returned to skilled nursing. Today patient had continued vomiting so he was transported to this ER for reevaluation. Patient is full code status per existing paperwork. Labs relatively reassuring except for elevated lactic acid. 10/19/24 @ 0100: Patient had a 2 minute generalized seizure with rightward deviation of eyes in addition to tonic/clonic movements of body and irregular respiratory pattern. IV Ativan 2 mg given. IV Valproic acid started as well as IV Keppra. Medication reconciliation was complicated by dose changes over time indicating same medications as previously on file but several dosing regimens were different, especially for seizure medications. Additionally, tramadol is a home medication which has contraindications in patients with seizures. This medication will not be restarted on this med reconciliation. Valproic acid level is low so we will tweak dosing and get a trough level before 5th dose. Patient was managed for Acute cholecystitis, Gen surgery anf GI were involved and after evaluations decided to go with medical management. MRCP did not showed any biliary tree dilation. Patient discharge on Levaquin and Flagyl to complete a total of 14 days abx therapy. Neurology was consulted for seizures, he recommended adjusting Keppra to 2000mg bid, Locasamide 250mg bid; and Valproic acid was discontinued due to recurrent acute pancreatitis. I discussed with neurologist Dr Ramos and he stated that patient can continue with Keppra and Locasamide as above and follow up outpati ent. Also managed for hypertension and started on discharged on Amlodipine and Isosorbide dinitrate, blood pressure adequately controlled . Patient also managed for pancreatitis, and Valproic acid was suspected culprit and was discontinued after discussing with neurology. Patient now tolerating tube feeding. Continue other home meds and f/u iwht PCP in 3-5 days, f/u with GI, GEn surgery and Neurology as instructed. Time Spent with Patient Time attestation: Total time spent providing and/or coordinating discharge services: DS: Data Data Completed and Pending Labs on day of discharge: Labs from last 24 hours 10/29/24 10/29/24 10/28/24 12:04 06:07 18:41 WBC 5.3 RBC 3.53 L Hgb 11.3 L Hct 35.3 L MCV 100.0 MCH 32.0 MCHC 32.0 RDW 13.6 Plt Count 228 MPV 11.4 H Immature Gran % (Auto) 0.4 Neut % (Auto) 36.5 L Lymph % (Auto) 43.0 [place] % (Auto) 13.4 H Eos % (Auto) 6.1 H Baso % (Auto) 0.6 Lymph # (Auto) 2.27 [place] # (Auto) 0.7 H Eos # (Auto) 0.3 Baso # (Auto) 0.0 Abs Immat Gran (auto) 0.02 Absolute Neuts (auto) 1.9 Absolute Nucleated RBC 0.000 Nucleated RBC % 0.0 Sodium 141 Potassium 3.5 Chloride 109 H Carbon Dioxide 23 Anion Gap 9 BUN 8 L D Creatinine 0.52 L Estim Creat Clear Calc 121 Estimated GFR > 60 Glucose 127 H POC Capillary Glucose 107 H 111 H Calcium 9.2 Magnesium 1.8 Total Bilirubin 0.2 AST 28 ALT 23 Alkaline Phosphatase 79 Total Protein 7.0 Albumin 3.3 L Discharge Plan Discharge Attending physician on discharge: Gloria Serrato Consulting providers: Jesús Lester; Ankur Patel; Cam Ramos Discharging Clinician: Gloria Serrato Anticipated Discharge Date/Time: 10/29/24 13:23 Patient Disposition: NH Detention/Asst Living Activity: as tolerated Diet: as tolerated and tube feeding Patient Instructions: Antibiotic Form, Cholecystitis (GEN), Pancreatitis (GEN) Patient Language: Persian Stand Alone Forms: General Discharge Information Follow-up/Referrals: Lauro,MD Burke [Primary Care Provider] - (F/u with PCP in 3-5 days ) Cam Ramos MD [Physician] - (F/u with PCP in 3-5 days ) Jesús Lester MD [Physician] - (F/u with GI as instructed ) Ankur Patel DO [Physician] - (F/u with Gen surgery as instructe d) Discharge Medications: New isosorbide dinitrate 5 mg Tablet 5 mg feeding tube TID 30 Days Qty: 90 1RF levofloxacin 750 mg tablet 750 mg PO DAILY 2 Days Qty: 2 0RF amlodipine [Norvasc] 5 mg Tablet 5 mg feeding tube DAILY 30 Days Qty: 30 1RF metronidazole 500 mg Tablet 500 mg PO Q8HR 2 Days Qty: 6 0RF Continued bisacodyl 10 mg Suppository 10 mg RECTAL DAILY PRN (Reason: Constipation) Rx Instructions: if no results for MOM sennosides [senna] 8.6 mg Tablet 8.6 mg feeding tube BID guaifenesin 100 mg/5 mL liquid 300 mg feeding tube BID PRN (Reason: Cough) magnesium hydroxide [Milk of Magnesia] 400 mg/5 mL Suspension 30 ml PO HS PRN (Reason: Constipation) Rx Instructions: If no BM in 3 days polyethylene glycol 3350 17 gram/dose powder 17 g feeding tube DAILY PRN (Reason: Constipation) metoprolol tartrate 25 mg tablet 25 mg feeding tube BID atorvastatin 40 mg tablet 40 mg PO HS ipratropium-albuterol 0.5 mg-3 mg(2.5 mg base)/3 mL solution for nebulization 3 ml INHALATION Q6H PRN (Reason: Shortness Of Breath) thiamine HCl (vitamin B1) 100 mg Tablet 100 mg feeding tube DAILY magnesium citrate [Citroma] Solution 296 ml PO DAILY PRN (Reason: Constipation) Rx Instructions: if no results from enema folic acid 1 mg tablet 1 mg feeding tube DAILY calcium carbonate 500 mg/5 mL (1,250 mg/5 mL) Suspension 1,250 mg PO Q6H PRN (Reason: Heartburn) clobazam 10 mg tablet 10 mg feeding tube DAILY aspirin 81 mg Tablet,Chewable 81 mg feeding tube DAILY acetaminophen 650 mg/20.3 mL Suspension 650 mg feeding tube Q4H PRN (Reason: Pain (Scale Score 1-3)) finasteride 5 mg tablet 5 mg feeding tube DAILY glycopyrrolate 2 mg tablet 2 mg feeding tube Q8H metoclopramide HCl 10 mg tablet 10 mg feeding tube TID ondansetron HCl 4 mg tablet 4 mg feeding tube Q6H PRN (Reason: nausea and vomiting) tramadol 50 mg tablet 25 mg feeding tube Q6H PRN (Reason: pain) pantoprazole 40 mg tablet,delayed release (DR/EC) 40 mg PO Q12H Changed levetiracetam 100 mg/mL solution 2,000 mg feeding tube BID 30 Days Qty: 0 1RF lacosamide 10 mg/mL solution 250 mg feeding tube BID 30 Days Qty: 200 2RF Discontinued valproic acid (as sodium salt) 250 mg/5 mL solution 500 mg feeding tube Q8H Date of admission: 10/19/24 08:33 Primary Care Provider: JagjitBurke Admitting Provider: Nj Nowak Attending physician on admission: Gloria Serrato Condition: Stable
[2024-10-29 13:57] VITALS: BP 142/81; PULSE 86; RESP 20; TEMP 36.2; O2SAT 96
[2024-10-29 15:20] VITALS: PULSE 89; RESP 18; O2SAT 96
== END 2024-10-29 18:20 | DRG 720 ==
LOC: ANHED 18:50 → ANHIMU 21:33 → ANH3MEDSUR 10-25 17:13
PROVIDERS: Internal Medicine Gastroenterology; Nurse Practitioner; Radiology Diagnostic Radiology; Admitting Provider Family Medicine; Emergency Provider Emergency Medicine; PCP Internal Medicine; Visit Provider Internal Medicine
DX: A41.9 Sepsis, unspecified organism (principal); K85.90 Acute pancreatitis without necrosis or infection, unspecified; R65.20 Severe sepsis without septic shock; K81.0 Acute cholecystitis; K31.84 Gastroparesis; G40.919 Epilepsy, unspecified, intractable, without status epilepticus; I69.320 Aphasia following cerebral infarction; I69.391 Dysphagia following cerebral infarction; I69.354 Hemiplegia and hemiparesis following cerebral infarction affecting left non-dominant side; J96.11 Chronic respiratory failure with hypoxia; K94.23 Gastrostomy malfunction; E87.21 Acute metabolic acidosis; H53.462 Homonymous bilateral field defects, left side; J44.9 Chronic obstructive pulmonary disease, unspecified; N40.0 Benign prostatic hyperplasia without lower urinary tract symptoms; I48.91 Unspecified atrial fibrillation; E86.0 Dehydration; F01.50 Vascular dementia, unspecified severity, without behavioral disturbance, psychotic disturbance, mood disturbance, and anxiety; Z86.718 Personal history of other venous thrombosis and embolism; Z79.01 Long term (current) use of anticoagulants; Z87.891 Personal history of nicotine dependence; Z93.0 Tracheostomy status; Z89.612 Acquired absence of left leg above knee
CPT/HCPCS: 36415; 74018; 74150; 74176; 74177; 74183; 76376; 76705; 80053; 80164; 82803; 82948; 83605; 83690; 83735; 84145; 85025; 85027; 85610; 85652; 85730; 86140; 87040; 96365; 96375; 96376; 99285; A4629; A9270; A9577; C9254; G0378; G0379; J0360; J1171; J1650; J1836; J1953; J1956; J2060; J2405; J2543; J3475; J3480; J7040; J7120; Q9967

== ENCOUNTER 2024-11-19 11:12 | Inpatient (IN) | payer OTHER, SELFPAY ==
[2024-11-19] VITALS (17 sets, daily range): BP systolic 113–143; BP diastolic 66–100; PULSE 89–130; RESP 16–30; TEMP 36.2–36.6; O2SAT 91–100
--- NOTE | ~2024-11-19 | XR_ITS ---
EXAM/PROCEDURE: XR chest 2V - 11/19/2024 12:35 CDT HISTORY: 64 years old Male with aspiration TECHNIQUE: Two view(s) of the chest. COMPARISON: None available. FINDINGS: LUNGS/ PLEURA: Focal basilar opacity along the right heart border. No appreciable pneumothorax or lar ge pleural effusion. HEART/ MEDIASTINUM: Heart appears normal in size. BONES: No acute osseous abnormality. OTHER: Visualized upper abdomen is unremarkable. Tracheostomy seen. IMPRESSION: Focal basilar opacity along the right heart border (likely right middle lobe), nonspecific finding an d can be seen in atelectasis, scarring versus pneumonia in appropriate clinical settings. Clinical co rrelation is recommended. Short interval follow-up chest radiograph is recommended after appropriate clinical therapy. Reviewed, dictated and finalized at location [facility]. IMPRESSION: Focal basilar opacity along the right heart border (likely right middle lobe), nonspecific finding and can be seen in atelectasis, scarring versus pneumonia i n appropriate clinical settings. Clinical correlation is recommended. Short int erval follow-up chest radiograph is recommended after appropriate clinical ther apy.
--- NOTE | ~2024-11-19 | CT_ITS ---
Clinical Indication: Abdominal pain, vomiting, aspiration CT Scan of the Chest, Abdomen, and Pelvis with Contrast: Technique: Contiguous sections were acquired throughout the chest, abdomen, and pelvis after intraven ous administration of 100 cc of Omnipaque 350. Dose reduction technique was used on this scan by uti lizing automated exposure control and iterative reconstruction technique. The dose-length product (DL P) was 966.31 mGy-cm. Comparison: 03/29/2024, 10/23/2024 Findings: Single mildly prominent lymph node along the right side of the upper mediastinum (axial image 55) is stable from prior exam. No other mediastinal or hilar lymphadenopathy. Tracheostomy cannula in place. No pulmonary embolus. No aortic aneurysm or dissection. There is no evidence of pleural or pericardial effusion. There is opacification of the right lower lobe bronchus, presumably with aspirated material or fluid. There is bibasilar consolidation, right worse than left which could reflect atelectasis and/or pneum onia. Mild emphysema. The liver, spleen, pancreas, gallbladder, adrenals and kidneys are within normal limits. No evidence of aortic aneurysm. No lymphadenopathy. No bowel obstruction or bowel wall thickening. There is no evidence to suggest acute appendicitis. Urinary bladder is unremarkable. No pelvic mass seen. No ascites. Impression: Aspirated material or fluid/debris within the right lower lobe bronchus with bibasilar consolidation, right worse than left. This could reflect atelectasis and/or pneumonia. Mild emphysema. Reviewed, dictated and finalized at [facility]. Impression: Aspirated material or fluid/debris within the right lower lobe bronchus with bi basilar consolidation, right worse than left. This could reflect atelectasis an d/or pneumonia. Mild emphysema.
--- NOTE | 2024-11-19 11:23 | ECG_ITS ---
Test Date: 2024-11-19 11:46:48 Measurements Intervals [place] Rate: 113 P: 68 AK: 155 QRS: -35 QRSD: 83 T: 86 QT: 322 QTc: 442 Interpretive Statements SINUS TACHYCARDIA INFERIOR INFARCT, AGE INDETERMINATE ANTEROSEPTAL INFARCT, AGE INDETERMINATE BORDERLINE ST-T WAVE ABNORMALITY- HIGH LATERAL LEADS ABNORMAL ECG Compared to ECG 09/16/2024 22:24:41 HEART RATE HAS INCREASED Electronically Signed On 11-19-2024 11:52:09 CDT by Dave Hernandez D.O.
[2024-11-19 11:56] LABS: Basophils Percent Auto 0.2 % (0.2-1.2); Eosinophils Absolute Auto 0.4 K/mm3 (0-0.3); Eosinophils Percent Auto 4.3 % (0-4.4); Hematocrit 46.4 % (42.0-52.0); Hemoglobin 15.2 g/dL (14.0-18.0); Immature Granulocyte Absolute 0.03 K/mm3 (0.00-0.031); Immature Granulocyte Percent A 0.4 % (0-0.5); Immature Platelet Fraction Pct 8.5 % (0.9-11.2); Lymphocytes Absolute Auto 1.53 K/mm3 (0.9-3.2); Lymphocytes Percent Auto 18.2 % (18.3-44.2); Mean Corpuscular HGB Conc 32.8 g/dl (32-36); Mean Corpuscular Hemoglobin 31.8 pg (26-34); Mean Corpuscular Volume 97.1 fl (80-100); Mean Platelet Volume 12.1 fl (7.4-10.4); Monocytes Percent Auto 11.9 % (2.6-8.5); Neutrophils Absolute Auto 5.5 K/mm3 (1.3-6.7); Platelet Count Result 147 k/mm3 (150-375); Red Blood Count 4.78 M/mm3 (4.6-6.20); Red Cell Distribution Width 13.2 % (11.5-14.5); White Blood Count 8.4 K/mm3 (4.5-10.0)
[2024-11-19 12:11] LABS: Alanine Aminotransferase 128 U/L (6-50); Albumin Level 4.5 g/dL (3.5-5.1); Alkaline Phosphatase 126 U/L (38-126); Anion Gap 12 mmol/L (4-12); Aspartate Amino Transferase 73 U/L (17-59); Bilirubin,Total 0.5 mg/dL (0.2-1.3); Blood Urea Nitrogen 16 mg/dL (9-20); Calcium 10.2 mg/dL (8.4-10.2); Carbon Dioxide 24 mmol/L (22-30); Chloride 102 mmol/L (98-107); Estimated Glomerular Filt Rate > 60; Glucose 117 mg/dL (65-110); Lipase 99 U/L (23-300); Potassium 4.9 mmol/L (3.4-5.0); Sodium 138 mmol/L (137-145); Total Protein 8.2 g/dL (6.3-8.2)
[2024-11-19 12:13] LABS: Add Urine Microscopic? YES; Appearance Urine Cloudy (Clear); Bacteria Urine None Seen /hpf; Bilirubin Urine Negative (Negative); Blood Urine Negative (Negative); Color Urine Yellow (Yellow); Glucose Urine UA Negative (Negative); Ketones Urine Negative (Negative); Leukocyte Esterase Ur Trace LEU/UL (Negative); Need Manual Microscopic Reviewed; Nitrate Urine Negative (Negative); Non Pathogenic Casts 0-2; Protein Urine Negative (Negative); RBC Urine 0-2 /hpf (0-2); Specific Grav Ur 1.016 (1.001-1.035); Squamous Epithelial Cell Urine None Seen /hpf (Few); WBC Urine 0-5 /hpf (0-3); pH Urine 7.5 (5.0-9.0)
[2024-11-19 12:18] LABS: Atypical Lymphocytes Present; Platelet Estimate Adequate (Adequate); Schistocytes None Seen
[2024-11-19 12:36] LABS: Lactic Acid Reflex 1.8 mmol/L (0.7-2.0)
[2024-11-19 12:59] LABS: Partial Thromboplastin Time 26.2 Seconds (22.3-36.8)
--- NOTE | 2024-11-19 13:51 | ED.NAVMDI ---
HPI - Nausea/Vomiting/Diarrhea General Chief complaint: Nausea/Vomiting/Diarrhea Stated complaint: vomiting from trach Time Seen by Provider: 11/19/24 12:59 History of Present Illness HPI Narrative: Pt vomited and then became hypoxic with sats in the 80's now in 90's on 3 L. concern for aspiration. Pt has frequent visits to ER and frequent hospitalizations here and at [facility]. Related Data Home Medications ?Medication ?Instructions ?Recorded ?Confirmed ?Last Taken ?Type metoprolol tartrate 25 mg tablet 25 mg feeding tube BID 12/18/22 11/19/24 10/16/24 20:55 History 25 mg polyethylene glycol 3350 17 17 g feeding tube DAILY PRN 12/18/22 11/19/24 10/16/24 17:10 History gram/dose oral powder Constipation 17 grams bisacodyl 10 mg rectal suppository 10 mg RECTAL DAILY PRN Constipation 02/11/23 11/19/24 10/17/24 01:50 History 10 mg sennosides 8.6 mg tablet (senna) 8.6 mg feeding tube BID 02/11/23 11/19/24 10/16/24 10:00 History 8.6 mg guaifenesin 100 mg/5 mL oral liquid 300 mg feeding tube BID PRN Cough 07/08/23 11/19/24 10/17/24 05:50 History 300 mg magnesium hydroxide 400 mg/5 mL 30 ml feeding tube HS PRN 12/13/23 11/19/24 09/11/24 12:10 History oral suspension (Milk of Magnesia) Constipation 30 mL atorvastatin 40 mg tablet 40 mg feeding tube HS 02/10/24 11/19/24 10/16/24 21:00 History 40 mg calcium carbonate 500 mg/5 mL (as 1,250 mg feeding tube Q6H PRN 02/10/24 11/19/24 Unknown History calcium carb 1,250 mg/5 mL) oral Heartburn suspension clobazam 10 mg tablet 10 mg feeding tube DAILY 02/10/24 11/19/24 10/16/24 17:10 History 10 mg folic acid 1 mg tablet 1 mg feeding tube DAILY 02/10/24 11/19/24 10/16/24 10:00 History 1 mg ipratropium 0.5 mg-albuterol 3 mg 3 ml inhalation Q6H PRN Shortness 02/10/24 11/19/24 Unknown History (2.5 mg base)/3 mL nebulization Of Breath soln magnesium citrate (Citroma oral 296 ml feeding tube DAILY PRN 02/10/24 11/19/24 Unknown History solution) Constipation thiamine HCl (vitamin B1) 100 mg 100 mg feeding tube DAILY 02/10/24 11/19/24 10/16/24 10:00 History tablet 100 mg acetaminophen 650 mg/20.3 mL oral 650 mg feeding tube Q4H PRN Pain 03/30/24 11/19/24 10/16/24 17:10 History suspension (Scale Score 1-3) 650 mg aspirin 81 mg chewable tablet 81 mg feeding tube DAILY 03/30/24 11/19/24 10/16/24 10:00 History 81 mg finasteride 5 mg tablet 5 mg feeding tube DAILY 10/18/24 11/19/24 10/16/24 10:00 History 5 mg glycopyrrolate 2 mg tablet 2 mg feeding tube Q8H 10/18/24 11/19/24 10/17/24 01:50 History 2 mg metoclopramide HCl 10 mg tablet 10 mg feeding tube TID 10/18/24 11/19/24 10/16/24 19:15 History 10 mg ondansetron HCl 4 mg tablet 4 mg feeding tube Q6H PRN nausea 10/18/24 11/19/24 10/15/24 00:50 History and vomiting 4 mg pantoprazole 40 mg tablet,delayed 40 mg PO Q12H 10/18/24 11/19/24 10/16/24 17:10 History release 40 mg tramadol 50 mg tablet 25 mg feeding tube Q6H PRN pain 10/18/24 11/19/24 10/15/24 05:45 History 25 mg Allergies Allergy/AdvReac Type Severity Reaction Status Date / Time clonazepam AdvReac Unknown drowsiness Verified 10/19/24 10:36 Review of Systems Review of Systems: All systems reviewed & are unremarkable except as noted in HPI and below PMFSH Past Medical History Medical History (Updated 11/19/24 @ 15:10 by Kirit Waldrop III, DO) Deep venous thrombosis of upper extremity Benign prostatic hyperplasia Cerebrovascular accident Residual expressive aphasia, dysphagia, and left-sided weakness. Chronic obstructive pulmonary disease Esophageal diverticulum Gastroparesis Iron deficiency anemia Vascular dementia with psychotic disturbance Seizure disorder Surgical History Surgical History History of gastrostomy tube placement History of tracheostomy History of left above knee amputation Family History Family History Other Unknown family medical history Social History Social History Social History: Surrogate medical decision maker: Adriane Hilliard, sibling. Code status: Full code. 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 Additional gender identity comments: Never Spiritual care concerns: No Exam Const: General: no acute distress Nutritional Appearance: well nourished Orientation/consciousness: patient oriented x3 Limitations: physical limitations (trach) Neck: Other: trach in place Chest: Chest palpation & inspection: normal inspection of the chest Resp: Effort & Inspection: normal respiratory effort Auscultation: clear to auscultation bilaterally Cardio: Rate: regular rate Rhythm: regular rhythm GI: GI Palp: Yes Soft to palpation and No Tenderness to palpation present (GI) Auscultation: normal bowel sounds Skin: General skin exam: normal color Rashes: no rashes Neuro: General: no meningeal signs Extrem: General: no clubbing, cyanosis or edema Psych: Mental Status: mental status grossly normal Attitude: cooperative Course Vital Signs Vital signs: Vital Signs Pulse Rate 114 H 11/19/24 11:16 Respiratory Rate 27 H 11/19/24 11:16 Blood Pressure 134/95 H 11/19/24 11:16 Pulse Oximetry 100 11/19/24 11:16 Oxygen Delivery Non-Rebreather Mask 11/19/24 11:16 Oxygen Flow Rate 10 11/19/24 11:16 Temperature 98 F 11/19/24 14:09 Pulse Rate 119 H 11/19/24 15:03 Respiratory Rate 25 H 11/19/24 15:03 Blood Pressure 137/87 11/19/24 15:03 Pulse Oximetry 100 11/19/24 14:09 Oxygen Delivery Non-Rebreather Mask 11/19/24 11:16 Oxygen Flow Rate 10 11/19/24 11:16 MDM - Nausea/Vomiting/Diarrhea MDM Narrative Medical decision making narrative: Pt vomited and had emesis in trach and dropped satsw. concern for aspiration. Pt has atelectisis vs rml infiltrate and which is more likely aspiration. pt has infiltrate in rml likely aspiration. discussed with Svetlana Matthews and agrees to admit. cefipime and flagyl for antibiotics Lab Data 11/19/24 11:39 11/19/24 11:39 Labs: Lab Results 11/19/24 11/19/24 11/19/24 Range/Units 11:38 11:39 11:52 WBC 8.4 (4.5-10.0) K/mm3 RBC 4.78 (4.6-6.20) M/mm3 Hgb 15.2 D (14.0-18.0) g/dL Hct 46.4 (42.0-52.0) % MCV 97.1 (80-100) fl MCH 31.8 (26-34) pg MCHC 32.8 (32-36) g/dl RDW 13.2 (11.5-14.5) % Plt Count 147 L (150-375) k/mm3 MPV 12.1 H (7.4-10.4) fl Immature Gran % (Auto) 0.4 (0-0.5) % Neut % (Auto) 65.0 (45.5-73.1) % Lymph % (Auto) 18.2 L (18.3-44.2) % [place] % (Auto) 11.9 H (2.6-8.5) % Eos % (Auto) 4.3 (0-4.4) % Baso % (Auto) 0.2 (0.2-1.2) % Lymph # (Auto) 1.53 (0.9-3.2) K/mm3 [place] # (Auto) 1.0 H (0.1-0.6) K/mm3 Eos # (Auto) 0.4 H (0-0.3) K/mm3 Baso # (Auto) 0.0 (0.0-0.1) K/mm3 Abs Immat Gran (auto) 0.03 (0.00-0.031) K/mm3 Absolute Neuts (auto) 5.5 (1.3-6.7) K/mm3 Absolute Nucleated RBC 0.000 (0.0-0.012) K/mm3 Band Neutrophils % Not Reportable Nucleated RBC % 0.0 (0.0-0.2) % Atypical Lymphocytes Present Platelet Estimate Adequate (Adequate) % Immature Plt Fraction 8.5 (0.9-11.2) % Schistocytes None seen APTT 26.2 (22.3-36.8) Seconds Sodium 138 (137-145) mmol/L Potassium 4.9 (3.4-5.0) mmol/L Chloride 102 (98-107) mmol/L Carbon Dioxide 24 (22-30) mmol/L Anion Gap 12 (4-12) mmol/L BUN 16 (9-20) mg/dL Creatinine 0.51 L (0.7-1.3) mg/dL Estim Creat Clear Calc Not Reportable Estimated GFR > 60 (59 - ) Glucose 117 H (65-110) mg/dL Lactic Acid (0.7-2.0) mmol/L Calcium 10.2 (8.4-10.2) mg/dL Total Bilirubin 0.5 (0.2-1.3) mg/dL AST 73 H (17-59) U/L ALT 128 H (6-50) U/L Alkaline Phosphatase 126 (38-126) U/L Total Protein 8.2 (6.3-8.2) g/dL Albumin 4.5 (3.5-5.1) g/dL Lipase 99 (23-300) U/L Urine Color Yellow (Yellow) Urine Appearance Cloudy H (Clear) Urine pH 7.5 (5.0-9.0) Ur Specific [place] 1.016 (1.001-1.035) Urine Protein Negative (Negative) mg/dL Urine Glucose (UA) Negative (Negative) mg/dL Urine Ketones Negative (Negative) mg/dL Ur Blood (Man) Negative (Negative) Urine Nitrate Negative (Negative) Urine Bilirubin Negative (Negative) Urine Urobilinogen 1.0 (<2.0) mg/dL Add Ur Microanalysis Reviewed Leukocyte Esterase Rfl Trace H (Negative) NOEL/UL Urine RBC 0-2 (0-2) /hpf Urine WBC 0-5 (0-3) /hpf Ur Squamous Epith Cells None seen (Few) /hpf Urine Bacteria None seen /hpf Urine Casts 0-2 06/23/25 Range/Units 12:20 WBC (4.5-10.0) K/mm3 RBC (4.6-6.20) M/mm3 Hgb (14.0-18.0) g/dL Hct (42.0-52.0) % MCV (80-100) fl MCH (26-34) pg MCHC (32-36) g/dl RDW (11.5-14.5) % Plt Count (150-375) k/mm3 MPV (7.4-10.4) fl Immature Gran % (Auto) (0-0.5) % Neut % (Auto) (45.5-73.1) % Lymph % (Auto) (18.3-44.2) % [place] % (Auto) (2.6-8.5) % Eos % (Auto) (0-4.4) % Baso % (Auto) (0.2-1.2) % Lymph # (Auto) (0.9-3.2) K/mm3 [place] # (Auto) (0.1-0.6) K/mm3 Eos # (Auto) (0-0.3) K/mm3 Baso # (Auto) (0.0-0.1) K/mm3 Abs Immat Gran (auto) (0.00-0.031) K/mm3 Absolute Neuts (auto) (1.3-6.7) K/mm3 Absolute Nucleated RBC (0.0-0.012) K/mm3 Band Neutrophils % Nucleated RBC % (0.0-0.2) % Atypical Lymphocytes Platelet Estimate (Adequate) % Immature Plt Fraction (0.9-11.2) % Schistocytes APTT (22.3-36.8) Seconds Sodium (137-145) mmol/L Potassium (3.4-5.0) mmol/L Chloride (98-107) mmol/L Carbon Dioxide (22-30) mmol/L Anion Gap (4-12) mmol/L BUN (9-20) mg/dL Creatinine (0.7-1.3) mg/dL Estim Creat Clear Calc Estimated GFR (59 - ) Glucose (65-110) mg/dL Lactic Acid 1.8 (0.7-2.0) mmol/L Calcium (8.4-10.2) mg/dL Total Bilirubin (0.2-1.3) mg/dL AST (17-59) U/L ALT (6-50) U/L Alkaline Phosphatase (38-126) U/L Total Protein (6.3-8.2) g/dL Albumin (3.5-5.1) g/dL Lipase (23-300) U/L Urine Color (Yellow) Urine Appearance (Clear) Urine pH (5.0-9.0) Ur Specific [place] (1.001-1.035) Urine Protein (Negative) mg/dL Urine Glucose (UA) (Negative) mg/dL Urine Ketones (Negative) mg/dL Ur Blood (Man) (Negative) Urine Nitrate (Negative) Urine Bilirubin (Negative) Urine Urobilinogen (<2.0) mg/dL Add Ur Microanalysis Leukocyte Esterase Rfl (Negative) NOEL/UL Urine RBC (0-2) /hpf Urine WBC (0-3) /hpf Ur Squamous Epith Cells (Few) /hpf Urine Bacteria /hpf Urine Casts Discharge Plan Discharge Clinical Impression: Aspiration pneumonia Patient Disposition: Still a Patient Condition: Stable
[2024-11-19] MEDS: ACETAMINOPHEN 325 MG TABLET 650 MG PO (14:23)
[2024-11-19] MEDS: CEFEPIME 2 GM/NS 50 ML 2 GM/50 ML BAG IVPB (15:06)
[2024-11-19] MEDS: metroNIDAZOLE 500 MG/ISO 100ML 500 MG/100 ML BAG 100 MG IVPB ×2 (15:10→22:42)
--- NOTE | 2024-11-19 16:18 | ADMGEN ---
This patient, Bi Tabor, was admitted to Medical Room 342-01. Patient/family oriented to hospital policies and general routines including ID bracelet, bed and alarms, visiting hours, pain management, procedures, bathroom and other care routines, personal items, smoking policy, room service/diet, and visiting hours. Information on how to activate the Rapid Response Team has been discussed. Patient/Family are encouraged to report perceived risks to care and to ask questions if they do not understand what they are told or what they should do.
[2024-11-19 18:03] LABS: Glucose Point of Care 111 mg/dl (65-105)
--- NOTE | 2024-11-19 19:49 | PC.NURSE ---
Lluvia TAMEZ at [facility] aware of admission to hospital.
--- NOTE | 2024-11-19 21:28 | P.HP_ITS ---
H&P: HPI History of Present Illness Date/Time: 11/19/24 21:28 Chief Complaint: Vomiting out of tracheostomy tube Narrative: Unfortunate 64-year-old male with a past medical history of CVA, chronic respiratory failure status post tracheostomy and PEG tube, gastroparesis, seizure disorder, psychosis, dementia with psychosis, peripheral vascular disease with left [id number] amputation who presented to the ER via EMS from [facility] due to vomiting. The patient receives G-tube feeds and detention staff reported the patient vomited with some of his emesis coming out of his mouth and some of it coming out of his tracheostomy. EMS had to suction the patient multiple times with large amounts of material obtained. Patient was satting 89% on room air. In the ER the patient had tachypnea and somewhat labored respirations. He was placed on 100% high-flow O2 through tracheostomy collar. He has had multiple episodes of suctioning with at least 300 mL of material suctioned from his tracheostomy since he has arrived to the medical floor. Material is cloudy clear to whitish in appearance. There is some material consistent with G-tube feed within the canister. Patient has been afebrile. He does have some sinus tachycardia. His white count is normal. Initial chest x-ray demonstrated focal basilar opacity along the right heart border likely right middle lobe which could be atelectasis scarring versus pneumonia. The patient can produce a few words through his tracheostomy and will answer questions yes and no by nodding. He denies having any chest pain or feeling short of breath. He does report of abdominal pain and distension. He reports the pain is worse with palpation. He states he has not had a bowel movement in at least several days. He complains that he is wet. He has a pure wick catheter on and has not yet produced any urine. In the past the patient has had a indwelling Jensen catheter but did not have 1 on presentation to the ER. The patient reports that his low back hurts but this is chronic. Review of Systems 2 Review of Systems: Review of systems was limited due to combination of the patient's history of dementia and, is CVA further complicated by tracheostomy. [facility] Past Medical History Medical History History of multiple strokes Pancreatitis 09/2024 Deep venous thrombosis of upper extremity Benign prostatic hyperplasia Cerebrovascular accident Residual expressive aphasia, dysphagia, and left-sided weakness. Chronic obstructive pulmonary disease Esophageal diverticulum Gastroparesis Iron deficiency anemia Vascular dementia with psychotic disturbance Seizure disorder Surgical History Surgical History History of gastrostomy tube placement (07/09/23) History of tracheostomy History of left above knee amputation Family History Family History Other Unknown family medical history Social History Social History Social History: Surrogate medical decision maker: Adriane Babak, sibling. Code status: Full code. 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 Additional gender identity comments: Never Spiritual care concerns: No Meds Home Medications and Allergies Home Medications ?Medication ?Instructions ?Recorded ?Confirmed ?Type metoprolol tartrate 25 mg tablet 25 mg feeding tube BID 12/18/22 11/19/24 History polyethylene glycol 3350 17 17 g feeding tube DAILY PRN 12/18/22 11/19/24 History gram/dose oral powder Constipation bisacodyl 10 mg rectal suppository 10 mg RECTAL DAILY PRN Constipation 02/11/23 11/19/24 History sennosides 8.6 mg tablet (senna) 8.6 mg feeding tube BID 02/11/23 11/19/24 History guaifenesin 100 mg/5 mL oral liquid 300 mg feeding tube BID PRN Cough 07/08/23 11/19/24 History magnesium hydroxide 400 mg/5 mL 30 ml feeding tube HS PRN 12/13/23 11/19/24 History oral suspension (Milk of Magnesia) Constipation atorvastatin 40 mg tablet 40 mg feeding tube HS 02/10/24 11/19/24 History calcium carbonate 500 mg/5 mL (as 1,250 mg feeding tube Q6H PRN 02/10/24 11/19/24 History calcium carb 1,250 mg/5 mL) oral Heartburn suspension clobazam 10 mg tablet 10 mg feeding tube DAILY 02/10/24 11/19/24 History folic acid 1 mg tablet 1 mg feeding tube DAILY 02/10/24 11/19/24 History ipratropium 0.5 mg-albuterol 3 mg 3 ml inhalation Q6H PRN Shortness 02/10/24 11/19/24 History (2.5 mg base)/3 mL nebulization Of Breath soln magnesium citrate (Citroma oral 296 ml feeding tube DAILY PRN 02/10/24 11/19/24 History solution) Constipation thiamine HCl (vitamin B1) 100 mg 100 mg feeding tube DAILY 02/10/24 11/19/24 History tablet acetaminophen 650 mg/20.3 mL oral 650 mg feeding tube Q4H PRN Pain 03/30/24 11/19/24 History suspension (Scale Score 1-3) aspirin 81 mg chewable tablet 81 mg feeding tube DAILY 03/30/24 11/19/24 History finasteride 5 mg tablet 5 mg feeding tube DAILY 10/18/24 11/19/24 History glycopyrrolate 2 mg tablet 2 mg feeding tube Q8H 10/18/24 11/19/24 History metoclopramide HCl 10 mg tablet 10 mg feeding tube TID 10/18/24 11/19/24 History ondansetron HCl 4 mg tablet 4 mg feeding tube Q6H PRN nausea 10/18/24 11/19/24 History and vomiting pantoprazole 40 mg tablet,delayed 40 mg PO Q12H 10/18/24 11/19/24 History release tramadol 50 mg tablet 25 mg feeding tube Q6H PRN pain 10/18/24 11/19/24 History amlodipine 5 mg tablet (Norvasc) 5 mg feeding tube DAILY 30 days 10/29/24 11/19/24 Rx #30 tabs isosorbide dinitrate 5 mg tablet 5 mg feeding tube TID 30 days #90 10/29/24 11/19/24 Rx tabs lacosamide 10 mg/mL oral solution 250 mg (25 mL) feeding tube BID 30 10/29/24 11/19/24 Rx days #200 mL levetiracetam 100 mg/mL oral 2,000 mg (20 mL) feeding tube BID 10/29/24 11/19/24 Rx solution 30 days #0 mL Allergies Allergy/AdvReac Type Severity Reaction Status Date / Time clonazepam AdvReac Unknown drowsiness Verified 10/19/24 10:36 Vital Signs Vital Signs - 24 hr 11/19/24 11:16 11/19/24 11:22 11/19/24 11:30 Temperature Pulse Rate 114 H 117 H Respiratory Rate 27 H 30 H 27 H Blood Pressure 134/95 H Pulse Oximetry 100 99 100 Oxygen Delivery Non-Rebreather Mask Oxygen Flow Rate 10 Fraction of Inspired Oxygen 11/19/24 11:45 11/19/24 11:51 11/19/24 12:00 Temperature Pulse Rate 130 H 115 H 113 H Respiratory Rate 26 H 26 H 24 H Blood Pressure 137/100 H 143/90 H Pulse Oximetry 100 100 98 Oxygen Delivery Oxygen Flow Rate Fraction of Inspired Oxygen 11/19/24 12:01 11/19/24 12:54 11/19/24 13:01 Temperature Pulse Rate 119 H 123 H Respiratory Rate 27 H 30 H 26 H Blood Pressure 134/92 H Pulse Oximetry 99 100 100 Oxygen Delivery Oxygen Flow Rate Fraction of Inspired Oxygen 11/19/24 13:46 11/19/24 13:47 11/19/24 14:09 Temperature 98 F 98 F Pulse Rate 119 H 121 H 118 H Respiratory Rate 27 H 27 H 28 H Blood Pressure 138/93 H 138/93 H 133/99 H Pulse Oximetry 100 99 100 Oxygen Delivery Oxygen Flow Rate Fraction of Inspired Oxygen 11/19/24 15:03 11/19/24 17:00 11/19/24 20:00 Temperature Pulse Rate 119 H 89 Respiratory Rate 25 H 20 Blood Pressure 137/87 Pulse Oximetry 94 91 Oxygen Delivery High Flow Therapy with Tr High Flow Therapy with Tr Oxygen Flow Rate 40 10 Fraction of Inspired Oxygen 40 40 11/19/24 20:36 Temperature Pulse Rate 89 Respiratory Rate 20 Blood Pressure Pulse Oximetry 91 Oxygen Delivery High Flow Therapy with Tr Oxygen Flow Rate 40 Fraction of Inspired Oxygen 40 Exam 2 Narrative: Weight 71.1 kg Const: Other: Chronically ill-appearing, well-nourished, no acute distress, sitting in bed with head of bed at 35? HENMT: Other: Mucous membranes are moist, several missing teeth, oral exam limited as patient has difficulty opening his mouth very far, head is normocephalic atraumatic Eyes: Other: No scleral icterus, pupils are equal and reactive Neck: Other: Tracheostomy in place with tracheostomy connected to CPAP Resp: Other: Coarse breath sounds, no tachypnea, no increased work of breathing Cardio: Other: Sinus tachycardia, 2+ bilateral radial pedal pulses, no JVD GI: Other: Tense, distended, generalized tenderness palpation, G-tube in left upper quadrant, hypoactive bowel sounds, dull to percussion : Other: Pure wick catheter in place with suction canister empty Skin: Other: No jaundice, no pallor, normal temperature to touch Neuro: Other: Patient is alert, difficult to assess for orientation due to communication barriers, patient has contractures of the left arm at the shoulder elbow elbow and wrist, with increased tone, tongue deviates slightly to the right, chronic facial asymmetry Extrem: Other: Left above the knee amputation with no wounds to stump site, left foot is in a pressure relieving boots, no open wounds or sores, no clubbing, cyanosis or edema, 4/5 drop board worker 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 upper extremity, 2/5 drop board worker strength of the left with difficulty opening the hand due to chronic neurologic deficits Psych: Other: Cooperative, calm H&P: Results Labs Labs: Laboratory Tests 11/19/24 11:39 11/19/24 11:39 11/19/24 11/19/24 11/19/24 11:38 11:39 11:52 WBC 8.4 RBC 4.78 Hgb 15.2 D Hct 46.4 MCV 97.1 MCH 31.8 MCHC 32.8 RDW 13.2 Plt Count 147 L MPV 12.1 H Immature Gran % (Auto) 0.4 Neut % (Auto) 65.0 Lymph % (Auto) 18.2 L [place] % (Auto) 11.9 H Eos % (Auto) 4.3 Baso % (Auto) 0.2 Lymph # (Auto) 1.53 [place] # (Auto) 1.0 H Eos # (Auto) 0.4 H Baso # (Auto) 0.0 Abs Immat Gran (auto) 0.03 Absolute Neuts (auto) 5.5 Absolute Nucleated RBC 0.000 Band Neutrophils % Not Reportable Nucleated RBC % 0.0 Atypical Lymphocytes Present Platelet Estimate Adequate % Immature Plt Fraction 8.5 Schistocytes None seen APTT 26.2 Sodium 138 Potassium 4.9 Chloride 102 Carbon Dioxide 24 Anion Gap 12 BUN 16 Creatinine 0.51 L Estim Creat Clear Calc Not Reportable Estimated GFR > 60 Glucose 117 H POC Capillary Glucose Lactic Acid Calcium 10.2 Total Bilirubin 0.5 AST 73 H ALT 128 H Alkaline Phosphatase 126 Total Protein 8.2 Albumin 4.5 Lipase 99 Urine Color Yellow Urine Appearance Cloudy H Urine pH 7.5 Ur Specific Denio 1.016 Urine Protein Negative Urine Glucose (UA) Negative Urine Ketones Negative Ur Blood (Man) Negative Urine Nitrate Negative Urine Bilirubin Negative Urine Urobilinogen 1.0 Add Ur Microanalysis Reviewed Leukocyte Esterase Rfl Trace H Urine RBC 0-2 Urine WBC 0-5 Ur Squamous Epith Cells None seen Urine Bacteria None seen Urine Casts 0-2 11/19/24 11/19/24 12:20 17:58 WBC RBC Hgb Hct MCV MCH MCHC RDW Plt Count MPV Immature Gran % (Auto) Neut % (Auto) Lymph % (Auto) [place] % (Auto) Eos % (Auto) Baso % (Auto) Lymph # (Auto) [place] # (Auto) Eos # (Auto) Baso # (Auto) Abs Immat Gran (auto) Absolute Neuts (auto) Absolute Nucleated RBC Band Neutrophils % Nucleated RBC % Atypical Lymphocytes Platelet Estimate % Immature Plt Fraction Schistocytes APTT Sodium Potassium Chloride Carbon Dioxide Anion Gap BUN Creatinine Estim Creat Clear Calc Estimated GFR Glucose POC Capillary Glucose 111 H Lactic Acid 1.8 Calcium Total Bilirubin AST ALT Alkaline Phosphatase Total Protein Albumin Lipase Urine Color Urine Appearance Urine pH Ur Specific [place] Urine Protein Urine Glucose (UA) Urine Ketones Ur Blood (Man) Urine Nitrate Urine Bilirubin Urine Urobilinogen Add Ur Microanalysis Leukocyte Esterase Rfl Urine RBC Urine WBC Ur Squamous Epith Cells Urine Bacteria Urine Casts Laboratory Tests 11/19/24 11/19/24 11/19/24 11:38 11:39 11:52 WBC 8.4 RBC 4.78 Hgb 15.2 D Hct 46.4 MCV 97.1 MCH 31.8 MCHC 32.8 RDW 13.2 Plt Count 147 L MPV 12.1 H Immature Gran % (Auto) 0.4 Neut % (Auto) 65.0 Lymph % (Auto) 18.2 L [place] % (Auto) 11.9 H Eos % (Auto) 4.3 Baso % (Auto) 0.2 Lymph # (Auto) 1.53 [place] # (Auto) 1.0 H Eos # (Auto) 0.4 H Baso # (Auto) 0.0 Abs Immat Gran (auto) 0.03 Absolute Neuts (auto) 5.5 Absolute Nucleated RBC 0.000 Band Neutrophils % Not Reportable Nucleated RBC % 0.0 Atypical Lymphocytes Present Platelet Estimate Adequate % Immature Plt Fraction 8.5 Schistocytes None seen APTT 26.2 Sodium 138 Potassium 4.9 Chloride 102 Carbon Dioxide 24 Anion Gap 12 BUN 16 Creatinine 0.51 L Estim Creat Clear Calc Not Reportable Estimated GFR > 60 Glucose 117 H POC Capillary Glucose Lactic Acid Calcium 10.2 Total Bilirubin 0.5 AST 73 H ALT 128 H Alkaline Phosphatase 126 Total Protein 8.2 Albumin 4.5 Lipase 99 Urine Color Yellow Urine Appearance Cloudy H Urine pH 7.5 Ur Specific [place] 1.016 Urine Protein Negative Urine Glucose (UA) Negative Urine Ketones Negative Ur Blood (Man) Negative Urine Nitrate Negative Urine Bilirubin Negative Urine Urobilinogen 1.0 Add Ur Microanalysis Reviewed Leukocyte Esterase Rfl Trace H Urine RBC 0-2 Urine WBC 0-5 Ur Squamous Epith Cells None seen Urine Bacteria None seen Urine Casts 0-2 11/19/24 11/19/24 12:20 17:58 WBC RBC Hgb Hct MCV MCH MCHC RDW Plt Count MPV Immature Gran % (Auto) Neut % (Auto) Lymph % (Auto) [place] % (Auto) Eos % (Auto) Baso % (Auto) Lymph # (Auto) [place] # (Auto) Eos # (Auto) Baso # (Auto) Abs Immat Gran (auto) Absolute Neuts (auto) Absolute Nucleated RBC Band Neutrophils % Nucleated RBC % Atypical Lymphocytes Platelet Estimate % Immature Plt Fraction Schistocytes APTT Sodium Potassium Chloride Carbon Dioxide Anion Gap BUN Creatinine Estim Creat Clear Calc Estimated GFR Glucose POC Capillary Glucose 111 H Lactic Acid 1.8 Calcium Total Bilirubin AST ALT Alkaline Phosphatase Total Protein Albumin Lipase Urine Color Urine Appearance Urine pH Ur Specific [place] Urine Protein Urine Glucose (UA) Urine Ketones Ur Blood (Man) Urine Nitrate Urine Bilirubin Urine Urobilinogen Add Ur Microanalysis Leukocyte Esterase Rfl Urine RBC Urine WBC Ur Squamous Epith Cells Urine Bacteria Urine Casts Impressions Chest X-Ray 11/19/24 12:45 IMPRESSION: Focal basilar opacity along the right heart border (likely right middle lobe), nonspecific finding and can be seen in atelectasis, scarring versus pneumonia in appropriate clinical settings. Clinical correlation is recommended. Short interval follow-up chest radiograph is recommended after appropriate clinical therapy. EKG: Test Date: 2024-11-19 11:46:48 Measurements Intervals [place] Rate: 113 P: 68 CT: 155 QRS: -35 QRSD: 83 T: 86 QT: 322 QTc: 442 Interpretive Statements SINUS TACHYCARDIA INFERIOR INFARCT, AGE INDETERMINATE ANTEROSEPTAL INFARCT, AGE INDETERMINATE BORDERLINE ST-T WAVE ABNORMALITY- HIGH LATERAL LEADS ABNORMAL ECG Compared to ECG 09/16/2024 22:24:41 HEART RATE HAS INCREASED All imaging and EKGs personally reviewed and interpreted. And unless stated otherwise agree with radiologic and cardiology interpretation. Assessment and Plan Assessment and plan (1) Aspiration pneumonia: Qualifiers: Aspiration pneumonia type: due to vomit Laterality: bilateral Lung location: unspecified part of lung Qualified Code(s): J69.0 - Pneumonitis due to inhalation of food and vomit Code(s): J69.0 - Pneumonitis due to inhalation of food and vomit Status: Acute (2) Gastroparesis: Code(s): K31.84 - Gastroparesis Status: Acute (3) Transaminitis: Code(s): R74.01 - Elevation of levels of liver transaminase levels Status: Acute (4) Epilepsy: Qualifiers: Epilepsy type: unspecified Intractability: not intractable Status epilepticus: without status epilepticus Qualified Code(s): G40.909 - Epilepsy, unspecified, not intractable, without status epilepticus Code(s): G40.909 - Epilepsy, unspecified, not intractable, without status epilepticus Status: Acute (5) Gastrojejunal tube present: Code(s): Z93.1 - Gastrostomy status Status: Acute (6) Tracheostomy in place: Code(s): Z93.0 - Tracheostomy status Status: Acute (7) Chronic respiratory failure with hypoxia: Code(s): J96.11 - Chronic respiratory failure with hypoxia Status: Acute (8) Benign prostatic hyperplasia: Qualifiers: Lower urinary tract symptom presence: symptoms present Lower urinary tract symptom detail: unspecified Qualified Code(s): N40.1 - Benign prostatic hyperplasia with lower urinary tract symptoms Code(s): N40.0 - Benign prostatic hyperplasia without lower urinary tract symptoms Status: Acute (9) Seizure disorder: Code(s): G40.909 - Epilepsy, unspecified, not intractable, without status epilepticus Status: Chronic Plan Patient presented with witnessed aspiration. Aspiration S complicated by patient's history of G-tube and tracheostomy. Patient has been started on empiric antibiotic therapy with cefepime, Flagyl and vancomycin. Will send sputum specimen for culture. Blood cultures have been obtained and are pending. Inpatient abdomen is distended intent he is complaining of abdominal pain and states he has not had a bowel movement. Will obtain CT of the chest abdomen pelvis to further evaluate intra-abdominal process. Patient does have hypoactive bowel sounds there may be a bowel obstruction versus distension due to the patient's pre-existing gastroparesis and/or constipation. Will place bowel regimen. Patient will be nothing by mouth due to history of dysphagia. However will also hold G-tube feeds for the short term until CT results are known. Patient is tachycardic and only as 250 mL in his bladder. Will place patient on maintenance IV fluids for the short term. Will continue respiratory support with oxygen supplementation through the tracheostomy but patient is currently on CPAP due to symptoms. Will continue home nebulizer treatments but will make them scheduled instead of p.r.n.. Will resume the patient's home seizure medications and medications for hypertension and BPH. Also continue home Reglan. Repeat CBC and CMP in a.m.. Patient does have transaminitis underlying source uncertain. MEDICAL DECISION MAKING NARRATIVE -Spoke with the ED provider in detail regarding patient's evaluation, workup and management -Patient seen and examined at bedside -Collaborated with patient's nurse at the bedside in detail and addressed all concerns -Labs, electrolytes, radiology, investigations and test results reviewed -ED/Consult/Nursing/Ancilliary notes on the chart reviewed and appreciated -Spoke with patient at bedside and addressed his concerns as best as I could giving communication barriers. Quality VTE Prophylaxis VTE prophylaxis: pharmacologic ordered (Lovenox 40 mg subQ daily.) Hospitalist [facility] Advance Care Plan I have confirmed that the patient's Advanced Care Plan is present, code status is documented, or surrogate decision maker is listed in patient medical record.: Yes Medication Reconciliation I have utilized all available resources to obtain, update and review the patients current medications (includes all prescriptions, OTC, herbals, cannabis, and nutritional supplements).: Yes
[2024-11-19] MEDS: cefTAZidime 2 GM/NS 50 ML 2 GM/50 ML BAG IVPB (22:41)
[2024-11-20] VITALS (20 sets, daily range): BP systolic 104–131; BP diastolic 63–75; PULSE 70–129; RESP 16–20; TEMP 36.1–36.9; O2SAT 92–100; BMI 23.1
[2024-11-20] MEDS: IPRATROPIUM 0.5 MG/ALBUTEROL SULFATE 2.5 MG AMPUL.NEB 3 ML INHALATION ×4 (01:55→19:35)
[2024-11-20] MEDS: ATORVASTATIN 40 MG TABLET FEED TUBE ×2 (02:25→21:18)
[2024-11-20] MEDS: PANTOPRAZOLE 40 MG TABLET PO ×3 (02:25→21:18)
[2024-11-20] MEDS: LACOSAMIDE (*CRX) 50 MG TABLET FEED TUBE ×3 (02:26→21:18)
[2024-11-20] MEDS: METOPROLOL TARTRATE 25 MG TABLET FEED TUBE ×3 (02:26→21:18)
[2024-11-20] MEDS: GLYCOPYRROLATE 1 MG TABLET 2 MG FEED TUBE ×4 (02:26→21:18)
[2024-11-20] MEDS: levETIRAcetam ORAL SOL 500 MG/5 ML UDC 2000 MG FEED TUBE ×3 (02:27→21:17)
[2024-11-20] MEDS: LACOSAMIDE (*CRX) 200 MG TABLET FEED TUBE ×3 (02:31→21:18)
[2024-11-20] MEDS: SODIUM CHLORIDE 0.9% IV 1,000 ML 100 ML IV CONT ×2 (02:33→14:16)
[2024-11-20] MEDS: cefTAZidime 2 GM/NS 50 ML 2 GM/50 ML BAG IVPB ×3 (05:20→21:18)
[2024-11-20] MEDS: metroNIDAZOLE 500 MG/ISO 100ML 500 MG/100 ML BAG 100 MG IVPB ×3 (05:21→21:19)
[2024-11-20] MEDS: DOCUSATE SODIUM 400 MG/400 ML ENEMA RECTAL (05:21)
[2024-11-20 05:55] LABS: Basophils Percent Auto 0.3 % (0.2-1.2); Eosinophils Absolute Auto 0.2 K/mm3 (0-0.3); Eosinophils Percent Auto 2.8 % (0-4.4); Hemoglobin 13.4 g/dL (14.0-18.0); Immature Granulocyte Absolute 0.01 K/mm3 (0.00-0.031); Immature Granulocyte Percent A 0.1 % (0-0.5); Lymphocytes Absolute Auto 2.74 K/mm3 (0.9-3.2); Lymphocytes Percent Auto 35.4 % (18.3-44.2); Mean Corpuscular HGB Conc 32.7 g/dl (32-36); Mean Corpuscular Hemoglobin 32.1 pg (26-34); Mean Corpuscular Volume 98.3 fl (80-100); Mean Platelet Volume 11.4 fl (7.4-10.4); Monocytes Absolute Auto 0.8 K/mm3 (0.1-0.6); Monocytes Percent Auto 10.2 % (2.6-8.5); Neutrophils Percent Auto 51.2 % (45.5-73.1); Platelet Count Result 155 k/mm3 (150-375); Red Blood Count 4.17 M/mm3 (4.6-6.20); Red Cell Distribution Width 13.3 % (11.5-14.5); White Blood Count 7.7 K/mm3 (4.5-10.0)
[2024-11-20 06:25] LABS: Alanine Aminotransferase 98 U/L (6-50); Albumin Level 3.9 g/dL (3.5-5.1); Alkaline Phosphatase 100 U/L (38-126); Anion Gap 8 mmol/L (4-12); Aspartate Amino Transferase 52 U/L (17-59); Bilirubin,Total 0.9 mg/dL (0.2-1.3); Blood Urea Nitrogen 18 mg/dL (9-20); Calcium 9.3 mg/dL (8.4-10.2); Carbon Dioxide 25 mmol/L (22-30); Chloride 104 mmol/L (98-107); Estimated CRCL calculation 109 ml/min; Estimated Glomerular Filt Rate > 60; Glucose 103 mg/dL (65-110); Potassium 4.2 mmol/L (3.4-5.0); Sodium 137 mmol/L (137-145); Total Protein 7.7 g/dL (6.3-8.2)
[2024-11-20] MEDS: ENOXAPARIN 40 MG/0.4 ML SYRINGE SUB-Q (09:19)
[2024-11-20] MEDS: FINASTERIDE 5 MG TABLET FEED TUBE (09:20)
[2024-11-20] MEDS: METOCLOPRAMIDE HCL 10 MG TABLET FEED TUBE ×3 (09:20→18:02)
[2024-11-20] MEDS: ISOSORBIDE DINITRATE 5 MG TABLET FEED TUBE ×3 (09:20→18:02)
[2024-11-20] MEDS: CALCIUM CARBONATE (TUMS) 500 MG (200 MG ELEMENTAL) 400 MG FEED TUBE (09:20)
[2024-11-20] MEDS: ASPIRIN 81 MG CHEWABLE TABLET FEED TUBE (09:21)
[2024-11-20] MEDS: THIAMINE HCL 100 MG TABLET FEED TUBE (09:21)
[2024-11-20] MEDS: amLODIPine BESYLATE 5 MG TABLET FEED TUBE (09:21)
[2024-11-20] MEDS: FOLIC ACID 1 MG TABLET FEED TUBE (09:21)
[2024-11-20] MEDS: ACETAMINOPHEN ELIXIR 325 MG/10.15 ML UDC 650 MG FEED TUBE ×2 (09:22→21:18)
--- NOTE | 2024-11-20 13:36 | P.PNIM_ITS ---
Progress Note: A&P Assessment and Plan (1) Aspiration pneumonia: Qualifiers: Aspiration pneumonia type: due to vomit Laterality: bilateral Lung location: unspecified part of lung Qualified Code(s): J69.0 - Pneumonitis due to inhalation of food and vomit Code(s): J69.0 - Pneumonitis due to inhalation of food and vomit Status: Acute (2) Gastroparesis: Code(s): K31.84 - Gastroparesis Status: Acute (3) Transaminitis: Code(s): R74.01 - Elevation of levels of liver transaminase levels Status: Acute (4) Epilepsy: Qualifiers: Epilepsy type: unspecified Intractability: not intractable Status epilepticus: without status epilepticus Qualified Code(s): G40.909 - Epilepsy, unspecified, not intractable, without status epilepticus Code(s): G40.909 - Epilepsy, unspecified, not intractable, without status epilepticus Status: Acute (5) Gastrojejunal tube present: Code(s): Z93.1 - Gastrostomy status Status: Acute (6) Tracheostomy in place: Code(s): Z93.0 - Tracheostomy status Status: Acute (7) Chronic respiratory failure with hypoxia: Code(s): J96.11 - Chronic respiratory failure with hypoxia Status: Acute (8) Benign prostatic hyperplasia: Qualifiers: Lower urinary tract symptom presence: symptoms present Lower urinary tract symptom detail: unspecified Qualified Code(s): N40.1 - Benign prostatic hyperplasia with lower urinary tract symptoms Code(s): N40.0 - Benign prostatic hyperplasia without lower urinary tract symptoms Status: Acute (9) Seizure disorder: Code(s): G40.909 - Epilepsy, unspecified, not intractable, without status epilepticus Status: Chronic Plan Acute hypoxic respiratory failure Aspiration/pneumonia Continue with Fortaz and flagyl We will get the sputum culture Continue to monitor HLD STatin COPD [employer]IAN meds Seizure disorder Keppra/vimpat HTN Metoprol constipation Bowel regimen Tube feeding consulted dietitian Subjective Date/time seen: 11/20/24 13:36 Interval history: per HPI: Unfortunate 64-year-old male with a past medical history of CVA, chronic respiratory failure status post tracheostomy and PEG tube, gastroparesis, seizure disorder, psychosis, dementia with psychosis, peripheral vascular disease with left [id number] amputation who presented to the ER via EMS from [facility] due to vomiting. The patient receives G-tube feeds and shelter staff reported the patient vomited with some of his emesis coming out of his mouth and some of it coming out of his tracheostomy. EMS had to suction the patient multiple times with large amounts of material obtained. Patient was satting 89% on room air. In the ER the patient had tachypnea and somewhat labored respirations. He was placed on 100% high-flow O2 through tracheostomy collar. He has had multiple episodes of suctioning with at least 300 mL of material suctioned from his tracheostomy since he has arrived to the medical floor. Material is cloudy clear to whitish in appearance. There is some material consistent with G-tube feed within the canister. Patient has been afebrile. He does have some sinus tachycardia. His white count is normal. Initial chest x-ray demonstrated focal basilar opacity along the right heart bor mai likely right middle lobe which could be atelectasis scarring versus pneumonia. The patient can produce a few words through his tracheostomy and will answer questions yes and no by nodding. He denies having any chest pain or feeling short of breath. He does report of abdominal pain and distension. He reports the pain is worse with palpation. He states he has not had a bowel movement in at least several days. He complains that he is wet. He has a pure wick catheter on and has not yet produced any urine. In the past the patient has had a indwelling Jensne catheter but did not have 1 on presentation to the ER. 11/20/24 Patient was seen examined at bedside. He is feeling fine. Breathing is getting better. Denies any chest pain. Has chronic abdominal pain. Denies nausea or vomiting. Patient has been admitted for aspiration/pneumonia. WBC WNL, creatinine 0.50. CT:Aspirated material or fluid/debris within the right lower lobe bronchus with bibasilar consolidation, right worse than left. This could reflect atelectasis and/or pneumonia. Blood culture pending Continue with Noemi and Cedric Review of Systems Review of Systems: Review of systems was limited due to combination of the patient's history of dementia and, is CVA further complicated by tracheostomy. Exam Narrative: Weight 71.1 kg Const: Other: Chronically ill-appearing, well-nourished, no acute distress, sitting in bed with head of bed at 35? HENMT: Other: Mucous membranes are moist, several missing teeth, oral exam limited as patient has difficulty opening his mouth very far, head is normocephalic atraumatic Eyes: Other: No scleral icterus, pupils are equal and reactive Neck: Other: Tracheostomy in place with tracheostomy connected to CPAP Resp: Other: Coarse breath sounds, no tachypnea, no increased work of breathing Cardio: Other: Sinus tachycardia, 2+ bilateral radial pedal pulses, no JVD GI: Other: Tense, distended, generalized tenderness palpation, G-tube in left upper quadrant, hypoactive bowel sounds, dull to percussion : Other: Pure wick catheter in place with suction canister empty Skin: Other: No jaundice, no pallor, normal temperature to touch Neuro: Other: Patient is alert, difficult to assess for orientation due to communication barriers, patient has contractures of the left arm at the shoulder elbow elbow and wrist, with increased tone, tongue deviates slightly to the right, chronic facial asymmetry Extrem: Other: Left above the knee amputation with no wounds to stump site, left foot is in a pressure relieving boots, no open wounds or sores, no clubbing, cyanosis or edema, 4/5 director medical 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 upper extremity, 2/5 director medical strength of the left with difficulty opening the hand due to chronic neurologic deficits Psych: Other: Cooperative, calm Objective Data Vital Signs Vital Signs: Vital Signs - 24 hr 11/19/24 13:46 11/19/24 13:47 11/19/24 14:09 Temperature 98 F 98 F Pulse Rate 119 H 121 H 118 H Respiratory Rate 27 H 27 H 28 H Blood Pressure 138/93 H 138/93 H 133/99 H Pulse Oximetry 100 99 100 Oxygen Delivery Oxygen Flow Rate Fraction of Inspired Oxygen 11/19/24 15:03 11/19/24 17:00 11/19/24 20:00 Temperature Pulse Rate 119 H 89 Respiratory Rate 25 H 20 Blood Pressure 137/87 Pulse Oximetry 94 91 Oxygen Delivery High Flow Therapy with Tr High Flow Therapy with Tr Oxygen Flow Rate 40 10 Fraction of Inspired Oxygen 40 40 11/19/24 20:00 11/19/24 20:36 11/19/24 21:45 Temperature 97.1 F L Pulse Rate 117 H 89 115 H Respiratory Rate 20 16 Blood Pressure 113/66 Pulse Oximetry 91 100 Oxygen Delivery High Flow Therapy with Tr Oxygen Flow Rate 40 Fraction of Inspired Oxygen 40 11/20/24 00:00 11/20/24 01:57 11/20/24 02:02 Temperature Pulse Rate 121 H 112 H 112 H Respiratory Rate 20 20 Blood Pressure Pulse Oximetry 95 Oxygen Delivery High Flow Therapy with Tr Oxygen Flow Rate 40 Fraction of Inspired Oxygen 40 11/20/24 04:00 11/20/24 05:08 11/20/24 06:00 Temperature 97.0 F L Pulse Rate 91 70 108 H Respiratory Rate 20 18 Blood Pressure 111/69 Pulse Oximetry 98 96 Oxygen Delivery High Flow Therapy with Tr Oxygen Flow Rate 40 Fraction of Inspired Oxygen 40 11/20/24 07:43 11/20/24 07:43 11/20/24 07:58 Temperature Pulse Rate 115 H 115 H 122 H Respiratory Rate 20 20 20 Blood Pressure Pulse Oximetry 95 Oxygen Delivery Oxygen Flow Rate 40 Fraction of Inspired Oxygen 40 11/20/24 09:19 Temperature Pulse Rate 122 H Respiratory Rate Blood Pressure Pulse Oximetry Oxygen Delivery Oxygen Flow Rate Fraction of Inspired Oxygen Intake/Output Intake/Output: Intake & Output 11/17/24 11/18/24 11/19/24 11/20/24 23:59 23:59 23:59 23:59 Intake Total 200 150 Output Total 300 Balance 200 -150 Meds/Results Medications: Active Medications Generic Name Dose Route Start Last Admin Trade Name Freq PRN Reason Stop Dose Admin Acetaminophen 650 mg 11/19/24 22:36 11/20/24 09:22 Acetaminophen Elixir 325 Mg/10.15 Ml Udc FEED TUBE 650 mg Q4H PRN Administration Pain 1-3 or fever Albuterol/Ipratropium 3 ml 11/20/24 02:00 11/20/24 07:43 Ipratropium 0.5 Mg/Albuterol Sulfate 2.5 Mg Ampul.Neb 3 Ml INHALATION 3 ml Q6HRT TERRELL Administration Amlodipine Besylate 5 mg 11/20/24 09:00 11/20/24 09:21 Amlodipine Besylate 5 Mg Tablet FEED TUBE 5 mg DAILY TERRELL Administration Aspirin 81 mg 11/20/24 09:00 11/20/24 09:21 Aspirin 81 Mg Chewable Tablet FEED TUBE 81 mg DAILY TERRELL Administration Atorvastatin Calcium 40 mg 11/19/24 22:55 11/20/24 02:25 Atorvastatin 40 Mg Tablet FEED TUBE 40 mg HS TERRELL Administration Bisacodyl 10 mg 11/19/24 22:36 Bisacodyl 10 Mg Suppository RECTAL DAILY PRN Constipation Calcium Carbonate 400 mg 11/19/24 23:17 11/20/24 09:20 Calcium Carbonate (Tums) 500 Mg (200 Mg Elemental) FEED TUBE 400 mg Q6H PRN Administration Heartburn Enoxaparin Sodium 40 mg 11/20/24 09:00 11/20/24 09:19 Enoxaparin 40 Mg/0.4 Ml Syringe SUB-Q 40 mg DAILY TERRELL Administration Finasteride 5 mg 11/20/24 09:00 11/20/24 09:20 Finasteride 5 Mg Tablet FEED TUBE 5 mg DAILY TERRELL Administration Folic Acid 1 mg 11/20/24 09:00 11/20/24 09:21 Folic Acid 1 Mg Tablet FEED TUBE 1 mg DAILY TERRELL Administration Glycopyrrolate 2 mg 11/19/24 23:05 11/20/24 13:28 Glycopyrrolate 1 Mg Tablet FEED TUBE 2 mg Q8HR TERRELL Administration Guaifenesin 300 mg 11/19/24 22:36 Guaifenesin 200 Mg/10 Ml Udc FEED TUBE BID PRN Cough Ceftazidime 2 gm in 50 mls @ 100 mls/hr 11/19/24 22:00 11/20/24 13:28 Fortaz 2 Gm/Ns 50 Ml IVPB 100 mls/hr Q8H TERRELL Administration Metronidazole 500 mg in 100 mls @ 100 mls/hr 11/19/24 22:00 11/20/24 13:34 Flagyl 500 Mg/Iso Soln 100 Ml IVPB 100 mls/hr Q8HR TERRELL Administration Sodium Chloride 1,000 mls @ 100 mls/hr 11/19/24 22:45 11/20/24 02:33 Normal Saline Iv IV CONT 100 mls/hr .Q10H TERRELL Administration Isosorbide Dinitrate 5 mg 11/20/24 09:00 11/20/24 13:27 Isosorbide Dinitrate 5 Mg Tablet FEED TUBE 5 mg TID TERRELL Administration Lacosamide 50 mg 11/19/24 23:00 11/20/24 09:20 Lacosamide (*Crx) 50 Mg Tablet FEED TUBE 50 mg Q12HR TERRELL Administration Lacosamide 200 mg 11/19/24 23:05 11/20/24 09:21 Lacosamide (*Crx) 200 Mg Tablet FEED TUBE 200 mg Q12HR TERRELL Administration Levetiracetam 2,000 mg 11/19/24 23:00 11/20/24 09:21 Levetiracetam Oral Amparo 500 Mg/5 Ml Udc FEED TUBE 2,000 mg Q12HR TERRELL Administration Metoclopramide HCl 10 mg 11/20/24 09:00 11/20/24 13:27 Metoclopramide Hcl 10 Mg Tablet FEED TUBE 10 mg TID TERRELL Administration Metoprolol Tartrate 25 mg 11/19/24 23:00 11/20/24 09:19 Metoprolol Tartrate 25 Mg Tablet FEED TUBE 25 mg Q12HR TERRELL Administration Pantoprazole Sodium 40 mg 11/19/24 22:45 11/20/24 09:19 Pantoprazole 40 Mg Tablet PO 40 mg Q12HR TERRELL Administration Polyethylene Glycol 17 gm 11/20/24 09:00 11/20/24 09:23 Polyethylene Glycol 3350 17 Gm Powd.Pack FEED TUBE Not Given DAILY TERRELL Senna 8.6 mg 11/20/24 09:00 11/20/24 09:23 Sennosides 8.6 Mg Tablet FEED TUBE Not Given BID TERRELL Thiamine HCl 100 mg 11/20/24 09:00 11/20/24 09:21 Thiamine Hcl 100 Mg Tablet FEED TUBE 100 mg DAILY TERRELL Administration Radiology Results: ITS Impressions Chest X-Ray 11/19/24 12:45 IMPRESSION: Focal basilar opacity along the right heart border (likely right middle lobe), nonspecific finding and can be seen in atelectasis, scarring versus pneumonia in appropriate clinical settings. Clinical correlation is recommended. Short interval follow-up chest radiograph is recommended after appropriate clinical therapy. Chest/Abdomen/Pelvis CT 11/20/24 05:14 Impression: Aspirated material or fluid/debris within the right lower lobe bronchus with bibasilar consolidation, right worse than left. This could reflect atelectasis and/or pneumonia. Mild emphysema. Labs Labs: Laboratory Results - last 24 hr 11/19/24 11/20/24 17:58 05:41 WBC 7.7 RBC 4.17 L Hgb 13.4 L Hct 41.0 L MCV 98.3 MCH 32.1 MCHC 32.7 RDW 13.3 Plt Count 155 MPV 11.4 H Immature Gran % (Auto) 0.1 Neut % (Auto) 51.2 Lymph % (Auto) 35.4 Rawlins % (Auto) 10.2 H Eos % (Auto) 2.8 Baso % (Auto) 0.3 Lymph # (Auto) 2.74 [place]lins # (Auto) 0.8 H Eos # (Auto) 0.2 Baso # (Auto) 0.0 Abs Immat Gran (auto) 0.01 Absolute Neuts (auto) 4.0 Absolute Nucleated RBC 0.000 Nucleated RBC % 0.0 Sodium 137 Potassium 4.2 Chloride 104 Carbon Dioxide 25 Anion Gap 8 BUN 18 Creatinine 0.59 L Estim Creat Clear Calc 109 Estimated GFR > 60 Glucose 103 POC Capillary Glucose 111 H Calcium 9.3 Total Bilirubin 0.9 AST 52 ALT 98 H Alkaline Phosphatase 100 Total Protein 7.7 Albumin 3.9 Quality VTE Prophylaxis VTE prophylaxis: pharmacologic ordered (Lovenox 40 mg subQ daily.)
[2024-11-20] MEDS: SENNOSIDES 8.6 MG TABLET FEED TUBE (18:02)
[2024-11-21] VITALS (18 sets, daily range): BP systolic 131–154; BP diastolic 69–80; PULSE 77–100; RESP 14–18; TEMP 36.4–36.8; O2SAT 98–100
[2024-11-21] MEDS: IPRATROPIUM 0.5 MG/ALBUTEROL SULFATE 2.5 MG AMPUL.NEB 3 ML INHALATION ×4 (02:42→21:25)
[2024-11-21] MEDS: SODIUM CHLORIDE 0.9% IV 1,000 ML 100 ML IV CONT (03:35)
[2024-11-21] MEDS: GLYCOPYRROLATE 1 MG TABLET 2 MG FEED TUBE ×3 (05:35→21:21)
[2024-11-21] MEDS: cefTAZidime 2 GM/NS 50 ML 2 GM/50 ML BAG IVPB ×3 (05:35→21:29)
[2024-11-21] MEDS: metroNIDAZOLE 500 MG/ISO 100ML 500 MG/100 ML BAG 100 MG IVPB ×3 (06:22→21:29)
[2024-11-21 06:56] LABS: Hematocrit 35.5 % (42.0-52.0); Hemoglobin 11.3 g/dL (14.0-18.0); Immature Platelet Fraction Pct 5.6 % (0.9-11.2); Mean Corpuscular HGB Conc 31.8 g/dl (32-36); Mean Corpuscular Volume 100.6 fl (80-100); Platelet Count Result 133 k/mm3 (150-375); Red Blood Count 3.53 M/mm3 (4.6-6.20); Red Cell Distribution Width 13.2 % (11.5-14.5); White Blood Count 6.5 K/mm3 (4.5-10.0)
[2024-11-21 07:15] LABS: Anion Gap 7 mmol/L (4-12); Blood Urea Nitrogen 17 mg/dL (9-20); Carbon Dioxide 24 mmol/L (22-30); Chloride 108 mmol/L (98-107); Estimated CRCL calculation 118 ml/min; Estimated Glomerular Filt Rate > 60; Glucose 101 mg/dL (65-110); Potassium 3.9 mmol/L (3.4-5.0); Sodium 139 mmol/L (137-145)
[2024-11-21] MEDS: levETIRAcetam ORAL SOL 500 MG/5 ML UDC 2000 MG FEED TUBE ×2 (09:08→21:22)
[2024-11-21] MEDS: LACOSAMIDE (*CRX) 200 MG TABLET FEED TUBE ×2 (09:08→21:21)
[2024-11-21] MEDS: FOLIC ACID 1 MG TABLET FEED TUBE (09:08)
[2024-11-21] MEDS: METOPROLOL TARTRATE 25 MG TABLET FEED TUBE ×2 (09:08→21:21)
[2024-11-21] MEDS: ISOSORBIDE DINITRATE 5 MG TABLET FEED TUBE ×3 (09:08→18:00)
[2024-11-21] MEDS: THIAMINE HCL 100 MG TABLET FEED TUBE (09:08)
[2024-11-21] MEDS: LACOSAMIDE (*CRX) 50 MG TABLET FEED TUBE ×2 (09:08→21:21)
[2024-11-21] MEDS: FINASTERIDE 5 MG TABLET FEED TUBE (09:09)
[2024-11-21] MEDS: ASPIRIN 81 MG CHEWABLE TABLET FEED TUBE (09:09)
[2024-11-21] MEDS: polyethylene glycoL 3350 17 GM POWD.PACK FEED TUBE (09:09)
[2024-11-21] MEDS: SENNOSIDES 8.6 MG TABLET FEED TUBE ×2 (09:09→17:59)
[2024-11-21] MEDS: METOCLOPRAMIDE HCL 10 MG TABLET FEED TUBE ×3 (09:09→17:59)
[2024-11-21] MEDS: amLODIPine BESYLATE 5 MG TABLET FEED TUBE (09:09)
[2024-11-21] MEDS: ENOXAPARIN 40 MG/0.4 ML SYRINGE SUB-Q (09:09)
--- NOTE | 2024-11-21 10:58 | PM.IMPN ---
Progress Note: A&P Assessment and Plan (1) Aspiration pneumonia: Qualifiers: Aspiration pneumonia type: due to vomit Laterality: bilateral Lung location: unspecified part of lung Qualified Code(s): J69.0 - Pneumonitis due to inhalation of food and vomit Code(s): J69.0 - Pneumonitis due to inhalation of food and vomit Status: Acute (2) Gastroparesis: Code(s): K31.84 - Gastroparesis Status: Acute (3) Transaminitis: Code(s): R74.01 - Elevation of levels of liver transaminase levels Status: Acute (4) Epilepsy: Qualifiers: Epilepsy type: unspecified Intractability: not intractable Status epilepticus: without status epilepticus Qualified Code(s): G40.909 - Epilepsy, unspecified, not intractable, without status epilepticus Code(s): G40.909 - Epilepsy, unspecified, not intractable, without status epilepticus Status: Acute (5) Gastrojejunal tube present: Code(s): Z93.1 - Gastrostomy status Status: Acute (6) Tracheostomy in place: Code(s): Z93.0 - Tracheostomy status Status: Acute (7) Chronic respiratory failure with hypoxia: Code(s): J96.11 - Chronic respiratory failure with hypoxia Status: Acute (8) Benign prostatic hyperplasia: Qualifiers: Lower urinary tract symptom presence: symptoms present Lower urinary tract symptom detail: unspecified Qualified Code(s): N40.1 - Benign prostatic hyperplasia with lower urinary tract symptoms Code(s): N40.0 - Benign prostatic hyperplasia without lower urinary tract symptoms Status: Acute (9) Seizure disorder: Code(s): G40.909 - Epilepsy, unspecified, not intractable, without status epilepticus Status: Chronic Plan Acute hypoxic respiratory failure Aspiration/pneumonia Continue with Fortaz and flagyl sputum culture pending Continue to monitor HLD STatin COPD [employer]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 The patient receives G-tube feeds and detention staff reported the patient vomited with some of his emesis coming out of his mouth and some of it coming out of his tracheostomy. EMS had to suction the patient multiple times with large amounts of material obtained. Patient was satting 89% on room air. In the ER the patient had tachypnea and somewhat labored respirations. He was placed on 100% high-flow O2 through tracheostomy collar. He has had multiple episodes of suctioning with at least 300 mL of material suctioned from his tracheostomy since he has arrived to the medical floor. Material is cloudy clear to whitish in appearance. There is some material consistent with G-tube feed within the canister. Patient has been afebrile. He does have some sinus tachycardia. His white count is normal. Initial chest x-ray demonstrated focal basilar opacity along the right heart border likely right middle lobe which could be atelectasis scarring versus pneumonia. The patient can produce a few words through his tracheostomy and will answer questions yes and no by nodding. He denies having any chest pain or feeling short of breath. He does report of abdominal pain and distension. He reports the pain is worse with palpation. He states he has not had a bowel movement in at least several days. He complains that he is wet. He has a pure wick catheter on and has not yet produced any urine. In the past the patient has had a indwelling Jensen catheter but did not have 1 on presentation to the ER. 11/20/24 Patient was seen examined at bedside. He is feeling fine. Breathing is getting better. Denies any chest pain. Has chronic abdominal pain. Denies nausea or vomiting. Patient has been admitted for aspiration/pneumonia. WBC WNL, creatinine 0.50. CT:Aspirated material or fluid/debris within the right lower lobe bronchus with bibasilar consolidation, right worse than left. This could reflect atelectasis and/or pneumonia. Blood culture pending Continue with Noemi and Cedric 11/21/24 Patient was seen and examined at bedside. he is feeling better. his breathing is better. his abd pain is better. continue Iv Abx. follow culture results Review of Systems Review of Systems: Review of systems was limited due to combination of the patient's history of dementia and, is CVA further complicated by tracheostomy. Exam Narrative: Weight 71.1 kg Const: Other: Chronically ill-appearing, well-nourished, no acute distress, sitting in bed with head of bed at 35? HENMT: Other: Mucous membranes are moist, several missing teeth, oral exam limited as patient has difficulty opening his mouth very far, head is normocephalic atraumatic Eyes: Other: No scleral icterus, pupils are equal and reactive Neck: Other: Tracheostomy in place with tracheostomy connected to CPAP Resp: Other: Coarse breath sounds, no tachypnea, no increased work of breathing Cardio: Other: Sinus tachycardia, 2+ bilateral radial pedal pulses, no JVD GI: Other: Tense, distended, generalized tenderness palpation, G-tube in left upper quadrant, hypoactive bowel sounds, dull to percussion : Other: Pure wick catheter in place with suction canister empty Skin: Other: No jaundice, no pallor, normal temperature to touch Neuro: Other: Patient is alert, difficult to assess for orientation due to communication barriers, patient has contractures of the left arm at the shoulder elbow elbow and wrist, with increased tone, tongue deviates slightly to the right, chronic facial asymmetry Extrem: Other: Left above the knee amputation with no wounds to stump site, left foot is in a pressure relieving boots, no open wounds or sores, no clubbing, cyanosis or edema, 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 upper extremity, 2/5 import/export clerk strength of the left with difficulty opening the hand due to chronic neurologic deficits Psych: Other: Cooperative, calm Objective Data Vital Signs Vital Signs: Vital Signs - 24 hr 11/20/24 12:00 11/20/24 14:00 11/20/24 14:09 Temperature 97.6 F Pulse Rate 129 H 98 118 H Respiratory Rate 18 20 Blood Pressure 104/63 Pulse Oximetry 100 98 Oxygen Delivery High Flow Therapy with Tr Oxygen Flow Rate 40 Fraction of Inspired Oxygen 40 11/20/24 14:09 11/20/24 14:23 11/20/24 16:00 Temperature Pulse Rate 118 H 102 H 100 Respiratory Rate 20 20 Blood Pressure Pulse Oximetry Oxygen Delivery Oxygen Flow Rate Fraction of Inspired Oxygen 11/20/24 19:35 11/20/24 19:35 11/20/24 19:42 Temperature Pulse Rate 95 94 Respiratory Rate 16 16 Blood Pressure Pulse Oximetry 97 Oxygen Delivery High Flow Therapy with Tr Oxygen Flow Rate 40 Fraction of Inspired Oxygen 40 11/20/24 19:53 11/20/24 20:00 11/20/24 20:00 Temperature 98.4 F Pulse Rate 99 102 H Respiratory Rate 18 Blood Pressure 131/75 Pulse Oximetry 100 100 Oxygen Delivery High Flow Therapy with Tr Oxygen Flow Rate 40 Fraction of Inspired Oxygen 40 11/20/24 21:30 11/21/24 00:00 11/21/24 02:42 Temperature Pulse Rate 79 79 Respiratory Rate 20 16 Blood Pressure Pulse Oximetry 100 Oxygen Delivery Oxygen Flow Rate Fraction of Inspired Oxygen 11/21/24 02:50 11/21/24 04:00 11/21/24 04:00 Temperature Pulse Rate 98 79 Respiratory Rate 16 16 Blood Pressure Pulse Oximetry 100 Oxygen Delivery Oxygen Flow Rate Fraction of Inspired Oxygen 11/21/24 04:03 11/21/24 07:50 11/21/24 07:50 Temperature 97.5 F L Pulse Rate 82 86 Respiratory Rate 18 16 Blood Pressure 137/75 Pulse Oximetry 100 99 Oxygen Delivery High Flow Therapy with Tr Oxygen Flow Rate 40 Fraction of Inspired Oxygen 42 11/21/24 08:07 11/21/24 09:08 Temperature Pulse Rate 86 94 Respiratory Rate 16 Blood Pressure Pulse Oximetry Oxygen Delivery Oxygen Flow Rate Fraction of Inspired Oxygen Intake/Output Intake/Output: Intake & Output 11/18/24 11/19/24 11/20/24 11/21/24 23:59 23:59 23:59 23:59 Intake Total 200 1450 1050 Output Total 750 250 Balance 200 700 800 Meds/Results Medications: Active Medications Generic Name Dose Route Start Last Admin Trade Name Freq PRN Reason Stop Dose Admin Acetaminophen 650 mg 11/19/24 22:36 11/20/24 21:18 Acetaminophen Elixir 325 Mg/10.15 Ml Udc FEED TUBE 650 mg Q4H PRN Administration Pain 1-3 or fever Albuterol/Ipratropium 3 ml 11/20/24 02:00 11/21/24 07:50 Ipratropium 0.5 Mg/Albuterol Sulfate 2.5 Mg Ampul.Neb 3 Ml INHALATION 3 ml Q6HRT TERRELL Administration Amlodipine Besylate 5 mg 11/20/24 09:00 11/21/24 09:09 Amlodipine Besylate 5 Mg Tablet FEED TUBE 5 mg DAILY TERRELL Administration Aspirin 81 mg 11/20/24 09:00 11/21/24 09:09 Aspirin 81 Mg Chewable Tablet FEED TUBE 81 mg DAILY TERRELL Administration Atorvastatin Calcium 40 mg 11/19/24 22:55 11/20/24 21:18 Atorvastatin 40 Mg Tablet FEED TUBE 40 mg HS TERRELL Administration Bisacodyl 10 mg 11/19/24 22:36 Bisacodyl 10 Mg Suppository RECTAL DAILY PRN Constipation Calcium Carbonate 400 mg 11/19/24 23:17 11/20/24 09:20 Calcium Carbonate (Tums) 500 Mg (200 Mg Elemental) FEED TUBE 400 mg Q6H PRN Administration Heartburn Enoxaparin Sodium 40 mg 11/20/24 09:00 11/21/24 09:09 Enoxaparin 40 Mg/0.4 Ml Syringe SUB-Q 40 mg DAILY TERRELL Administration Finasteride 5 mg 11/20/24 09:00 11/21/24 09:09 Finasteride 5 Mg Tablet FEED TUBE 5 mg DAILY TERRELL Administration Folic Acid 1 mg 11/20/24 09:00 11/21/24 09:08 Folic Acid 1 Mg Tablet FEED TUBE 1 mg DAILY TERRELL Administration Glycopyrrolate 2 mg 11/19/24 23:05 11/21/24 05:35 Glycopyrrolate 1 Mg Tablet FEED TUBE 2 mg Q8HR TERRELL Administration Guaifenesin 300 mg 11/19/24 22:36 Guaifenesin 200 Mg/10 Ml Udc FEED TUBE BID PRN Cough Ceftazidime 2 gm in 50 mls @ 100 mls/hr 11/19/24 22:00 11/21/24 06:05 Fortaz 2 Gm/Ns 50 Ml IVPB Infused Q8H TERRELL Infusion Metronidazole 500 mg in 100 mls @ 100 mls/hr 11/19/24 22:00 11/21/24 06:22 Flagyl 500 Mg/Iso Soln 100 Ml IVPB 100 mls/hr Q8HR TERRELL Administration Sodium Chloride 1,000 mls @ 100 mls/hr 11/19/24 22:45 11/21/24 03:35 Normal Saline Iv IV CONT 100 mls/hr .Q10H TERRELL Administration Isosorbide Dinitrate 5 mg 11/20/24 09:00 11/21/24 09:08 Isosorbide Dinitrate 5 Mg Tablet FEED TUBE 5 mg TID TERRELL Administration Lacosamide 50 mg 11/19/24 23:00 11/21/24 09:08 Lacosamide (*Crx) 50 Mg Tablet FEED TUBE 50 mg Q12HR TERRELL Administration Lacosamide 200 mg 11/19/24 23:05 11/21/24 09:08 Lacosamide (*Crx) 200 Mg Tablet FEED TUBE 200 mg Q12HR TERRELL Administration Levetiracetam 2,000 mg 11/19/24 23:00 11/21/24 09:08 Levetiracetam Oral Amparo 500 Mg/5 Ml Udc FEED TUBE 2,000 mg Q12HR TERRELL Administration Metoclopramide HCl 10 mg 11/20/24 09:00 11/21/24 09:09 Metoclopramide Hcl 10 Mg Tablet FEED TUBE 10 mg TID TERRELL Administration Metoprolol Tartrate 25 mg 11/19/24 23:00 11/21/24 09:08 Metoprolol Tartrate 25 Mg Tablet FEED TUBE 25 mg Q12HR TERRELL Administration Pantoprazole Sodium 40 mg 11/19/24 22:45 11/21/24 09:09 Pantoprazole 40 Mg Tablet PO Not Given Q12HR TERRELL Polyethylene Glycol 17 gm 11/20/24 09:00 11/21/24 09:09 Polyethylene Glycol 3350 17 Gm Powd.Pack FEED TUBE 17 gm DAILY TERRELL Administration Senna 8.6 mg 11/20/24 09:00 11/21/24 09:09 Sennosides 8.6 Mg Tablet FEED TUBE 8.6 mg BID TERRELL Administration Thiamine HCl 100 mg 11/20/24 09:00 11/21/24 09:08 Thiamine Hcl 100 Mg Tablet FEED TUBE 100 mg DAILY TERRELL Administration Radiology Results: ITS Impressions Chest X-Ray 11/19/24 12:45 IMPRESSION: Focal basilar opacity along the right heart border (likely right middle lobe), nonspecific finding and can be seen in atelectasis, scarring versus pneumonia in appropriate clinical settings. Clinical correlation is recommended. Short interval follow-up chest radiograph is recommended after appropriate clinical therapy. Chest/Abdomen/Pelvis CT 11/20/24 05:14 Impression: Aspirated material or fluid/debris within the right lower lobe bronchus with bibasilar consolidation, right worse than left. This could reflect atelectasis and/or pneumonia. Mild emphysema. Labs Labs: Laboratory Results - last 24 hr 11/21/24 06:36 WBC 6.5 RBC 3.53 L Hgb 11.3 L Hct 35.5 L MCV 100.6 H MCH 32.0 MCHC 31.8 L RDW 13.2 Plt Count 133 L MPV 11.0 H % Immature Plt Fraction 5.6 Sodium 139 Potassium 3.9 Chloride 108 H Carbon Dioxide 24 Anion Gap 7 BUN 17 Creatinine 0.54 L Estim Creat Clear Calc 118 Estimated GFR > 60 Glucose 101 Calcium 9.0 Quality VTE Prophylaxis VTE prophylaxis: pharmacologic ordered (Lovenox 40 mg subQ daily.)
--- NOTE | 2024-11-21 11:54 | PCDIET ---
TUBE FEEDING NOTE: Tube feeding recommendations Jevity 1.5 @ goal rate 55 ml/h. Flush 100 ml q 4 hours. Start at 30 ml/h and advance 10 ml q 4 hours as tolerated until goal rate is reached.
[2024-11-21] MEDS: FAMOTIDINE 20 MG TABLET FEED TUBE (21:21)
[2024-11-21] MEDS: ATORVASTATIN 40 MG TABLET FEED TUBE (21:21)
[2024-11-21] MEDS: ACETAMINOPHEN ELIXIR 325 MG/10.15 ML UDC 650 MG FEED TUBE (21:22)
[2024-11-22] VITALS (18 sets, daily range): BP systolic 137–158; BP diastolic 84–85; PULSE 78–119; RESP 16–18; TEMP 31.9–36.4; O2SAT 97–100
[2024-11-22] MEDS: IPRATROPIUM 0.5 MG/ALBUTEROL SULFATE 2.5 MG AMPUL.NEB 3 ML INHALATION ×3 (02:51→14:46)
[2024-11-22] MEDS: cefTAZidime 2 GM/NS 50 ML 2 GM/50 ML BAG IVPB (05:48)
[2024-11-22] MEDS: GLYCOPYRROLATE 1 MG TABLET 2 MG FEED TUBE ×2 (05:49→13:41)
[2024-11-22] MEDS: metroNIDAZOLE 500 MG/ISO 100ML 500 MG/100 ML BAG 100 MG IVPB (05:54)
[2024-11-22 06:20] LABS: Hemoglobin 11.3 g/dL (14.0-18.0); Mean Corpuscular HGB Conc 32.3 g/dl (32-36); Mean Corpuscular Hemoglobin 31.9 pg (26-34); Mean Corpuscular Volume 98.9 fl (80-100); Mean Platelet Volume 11.4 fl (7.4-10.4); Platelet Count Result 147 k/mm3 (150-375); Red Blood Count 3.54 M/mm3 (4.6-6.20); White Blood Count 5.7 K/mm3 (4.5-10.0)
[2024-11-22 06:39] LABS: Anion Gap 11 mmol/L (4-12); Blood Urea Nitrogen 9 mg/dL (9-20); Calcium 9.1 mg/dL (8.4-10.2); Carbon Dioxide 23 mmol/L (22-30); Chloride 107 mmol/L (98-107); Estimated CRCL calculation 136 ml/min; Estimated Glomerular Filt Rate > 60; Glucose 124 mg/dL (65-110); Potassium 3.4 mmol/L (3.4-5.0); Sodium 141 mmol/L (137-145)
[2024-11-22] MEDS: levETIRAcetam ORAL SOL 500 MG/5 ML UDC 2000 MG FEED TUBE (09:09)
[2024-11-22] MEDS: polyethylene glycoL 3350 17 GM POWD.PACK FEED TUBE (09:09)
[2024-11-22] MEDS: METOPROLOL TARTRATE 25 MG TABLET FEED TUBE (09:09)
[2024-11-22] MEDS: ENOXAPARIN 40 MG/0.4 ML SYRINGE SUB-Q (09:09)
[2024-11-22] MEDS: ISOSORBIDE DINITRATE 5 MG TABLET FEED TUBE ×2 (09:10→13:42)
[2024-11-22] MEDS: FAMOTIDINE 20 MG TABLET FEED TUBE (09:10)
[2024-11-22] MEDS: ASPIRIN 81 MG CHEWABLE TABLET FEED TUBE (09:10)
[2024-11-22] MEDS: LACOSAMIDE (*CRX) 50 MG TABLET FEED TUBE (09:10)
[2024-11-22] MEDS: LACOSAMIDE (*CRX) 200 MG TABLET FEED TUBE (09:10)
[2024-11-22] MEDS: FINASTERIDE 5 MG TABLET FEED TUBE (09:10)
[2024-11-22] MEDS: amLODIPine BESYLATE 5 MG TABLET FEED TUBE (09:10)
[2024-11-22] MEDS: FOLIC ACID 1 MG TABLET FEED TUBE (09:10)
[2024-11-22] MEDS: THIAMINE HCL 100 MG TABLET FEED TUBE (09:10)
[2024-11-22] MEDS: SENNOSIDES 8.6 MG TABLET FEED TUBE (09:11)
[2024-11-22] MEDS: METOCLOPRAMIDE HCL 10 MG TABLET FEED TUBE ×2 (09:11→13:41)
[2024-11-22] MEDS: ONDANSETRON INJ 4 MG/2 ML VIAL IV PUSH (09:47)
--- NOTE | 2024-11-22 12:30 | PM.DS ---
DS: Admitting Diagnosis Discharge Date 11/22/24 Admitting Diagnosis Aspiration DS: Discharge Diagnosis Discharge Diagnosis (1) Aspiration pneumonia: Qualifiers: Aspiration pneumonia type: due to vomit Laterality: bilateral Lung location: unspecified part of lung Qualified Code(s): J69.0 - Pneumonitis due to inhalation of food and vomit Code(s): J69.0 - Pneumonitis due to inhalation of food and vomit Status: Acute (2) Gastroparesis: Code(s): K31.84 - Gastroparesis Status: Acute (3) Transaminitis: Code(s): R74.01 - Elevation of levels of liver transaminase levels Status: Acute (4) Epilepsy: Qualifiers: Epilepsy type: unspecified Intractability: not intractable Status epilepticus: without status epilepticus Qualified Code(s): G40.909 - Epilepsy, unspecified, not intractable, without status epilepticus Code(s): G40.909 - Epilepsy, unspecified, not intractable, without status epilepticus Status: Acute (5) Gastrojejunal tube present: Code(s): Z93.1 - Gastrostomy status Status: Acute (6) Tracheostomy in place: Code(s): Z93.0 - Tracheostomy status Status: Acute (7) Chronic respiratory failure with hypoxia: Code(s): J96.11 - Chronic respiratory failure with hypoxia Status: Acute (8) Benign prostatic hyperplasia: Qualifiers: Lower urinary tract symptom presence: symptoms present Lower urinary tract symptom detail: unspecified Qualified Code(s): N40.1 - Benign prostatic hyperplasia with lower urinary tract symptoms Code(s): N40.0 - Benign prostatic hyperplasia without lower urinary tract symptoms Status: Acute (9) Seizure disorder: Code(s): G40.909 - Epilepsy, unspecified, not intractable, without status epilepticus Status: Chronic Plan Acute hypoxic respiratory failure Aspiration/pneumonia received Fortaz and flagyl. 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 The patient receives G-tube feeds and [facility] staff reported the patient vomited with some of his emesis coming out of his mouth and some of it coming out of his tracheostomy. EMS had to suction the patient multiple times with large amounts of material obtained. Patient was satting 89% on room air. In the ER the patient had tachypnea and somewhat labored respirations. He was placed on 100% high-flow O2 through tracheostomy collar. He has had multiple episodes of suctioning with at least 300 mL of material suctioned from his tracheostomy since he has arrived to the medical floor. Material is cloudy clear to whitish in appearance. There is some material consistent with G-tube feed within the canister. Patient has been afebrile. He does have some sinus tachycardia. His white count is normal. Initial chest x-ray demonstrated focal basilar opacity along the right heart border likely right middle lobe which could be atelectasis scarring versus pneumonia. The patient can produce a few words through his tracheostomy and will answer questions yes and no by nodding. He denies having any chest pain or feeling short of breath. He does report of abdominal pain and distension. He reports the pain is worse with palpation. He states he has not had a bowel movement in at least several days. He complains that he is wet. He has a pure wick catheter on and has not yet produced any urine. In the past the patient has had a indwelling Jensen catheter but did not have 1 on presentation to the ER. 11/20/24 Patient was seen examined at bedside. He is feeling fine. Breathing is getting better. Denies any chest pain. Has chronic abdominal pain. Denies nausea or vomiting. Patient has been admitted for aspiration/pneumonia. WBC WNL, creatinine 0.50. CT:Aspirated material or fluid/debris within the right lower lobe bronchus with bibasilar consolidation, right worse than left. This could reflect atelectasis and/or pneumonia. Blood culture pending Continue with Fortaz and Flagyl 11/21/24 Patient was seen and examined at bedside. he is feeling better. his breathing is better. his abd pain is better. continue Iv Abx. 11/22/24 Patient was seen and examined at bedside. he is feeling fine,denies any chets pain, SOB,Abd pain,n/V Sputum culture was contaminated. discussed with pharmacy team will discharge on Augmentin to cover aspiration pneumonia. Status at Discharge Overall status at discharge: patient is back to baseline Time Spent with Patient Time attestation: Total time spent providing and/or coordinating discharge services: Time spent: Greater than 30 minutes Exam Narrative: Weight 71.1 kg Const: Other: Chronically ill-appearing, well-nourished, no acute distress, sitting in bed with head of bed at 35? HENMT: Other: Mucous membranes are moist, several missing teeth, oral exam limited as patient has difficulty opening his mouth very far, head is normocephalic atraumatic Eyes: Other: No scleral icterus, pupils are equal and reactive Neck: Other: Tracheostomy in place with tracheostomy connected to CPAP Resp: Other: Coarse breath sounds, no tachypnea, no increased work of breathing Cardio: Other: Sinus tachycardia, 2+ bilateral radial pedal pulses, no JVD GI: Other: Tense, distended, generalized tenderness palpation, G-tube in left upper quadrant, hypoactive bowel sounds, dull to percussion : Other: Pure wick catheter in place with suction canister empty Skin: Other: No jaundice, no pallor, normal temperature to touch Neuro: Other: Patient is alert, difficult to assess for orientation due to communication barriers, patient has contractures of the left arm at the shoulder elbow elbow and wrist, with increased tone, tongue deviates slightly to the right, chronic facial asymmetry Extrem: Other: Left above the knee amputation with no wounds to stump site, left foot is in a pressure relieving boots, no open wounds or sores, no clubbing, cyanosis or edema, 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1 Preliminary micro results at discharge 11/19/24 12:20 Blood Culture - Preliminary Blood 11/19/24 12:23 Blood Culture - Preliminary Blood Discharge Plan Discharge Attending physician on discharge: Shira Crow Discharging Clinician: Shira Crow Anticipated Discharge Date/Time: 11/22/24 12:36 Patient Disposition: SNF Activity: as tolerated Diet: tube feeding Discharge Instructions: follow with PCP in one week. Continue Augmentin for 18 more doses Patient Language: Bangladeshi Stand Alone Forms: General Discharge Information Follow-up/Referrals: Dina,Jack OLSEN [Other] - 1 Week Discharge Medications: New amoxicillin-pot clavulanate 400-57 mg/5 mL Suspension For Reconstitution 5 ml feeding tube Q8HR Qty: 90 0RF Continued bisacodyl 10 mg Suppository 10 mg RECTAL DAILY PRN (Reason: Constipation) Rx Instructions: if no results for MOM sennosides [senna] 8.6 mg Tablet 8.6 mg feeding tube BID guaifenesin 100 mg/5 mL liquid 300 mg feeding tube BID PRN (Reason: Cough) magnesium hydroxide [Milk of Magnesia] 400 mg/5 mL Suspension 30 ml feeding tube HS PRN (Reason: Constipation) Rx Instructions: If no BM in 3 days polyethylene glycol 3350 17 gram/dose powder 17 g feeding tube DAILY PRN (Reason: Constipation) metoprolol tartrate 25 mg tablet 25 mg feeding tube BID atorvastatin 40 mg tablet 40 mg feeding tube HS ipratropium-albuterol 0.5 mg-3 mg(2.5 mg base)/3 mL solution for nebulization 3 ml INHALATION Q6H PRN (Reason: Shortness Of Breath) thiamine HCl (vitamin B1) 100 mg Tablet 100 mg feeding tube DAILY magnesium citrate [Citroma] Solution 296 ml feeding tube DAILY PRN (Reason: Constipation) Rx Instructions: if no results from enema folic acid 1 mg tablet 1 mg feeding tube DAILY calcium carbonate 500 mg/5 mL (1,250 mg/5 mL) Suspension 1,250 mg feeding tube Q6H PRN (Reason: Heartburn) aspirin 81 mg Tablet,Chewable 81 mg feeding tube DAILY acetaminophen 650 mg/20.3 mL Suspension 650 mg feeding tube Q4H PRN (Reason: Pain (Scale Score 1-3)) finasteride 5 mg tablet 5 mg feeding tube DAILY glycopyrrolate 2 mg tablet 2 mg feeding tube Q8H metoclopramide HCl 10 mg tablet 10 mg feeding tube TID ondansetron HCl 4 mg tablet 4 mg feeding tube Q6H PRN (Reason: nausea and vomiting) pantoprazole 40 mg tablet,delayed release (DR/EC) 40 mg PO Q12H amlodipine [Norvasc] 5 mg Tablet 5 mg feeding tube DAILY 30 Days Qty: 30 1RF isosorbide dinitrate 5 mg Tablet 5 mg feeding tube TID 30 Days Qty: 90 1RF levetiracetam 100 mg/mL solution 2,000 mg feeding tube BID 30 Days Qty: 0 1RF lacosamide 10 mg/mL solution 250 mg feeding tube BID 30 Days Qty: 200 2RF Date of admission: 11/19/24 15:10 Primary Care Provider: Dina,Jack OLSEN Admitting Provider: Shira Crow Attending physician on admission: Shira Crow Condition: Stable Quality VTE Prophylaxis VTE prophylaxis: pharmacologic ordered (Lovenox 40 mg subQ daily.)
[2024-11-22] MEDS: AMOXICILLIN/CLAVULANATE K SUSP 500 MG/6.25 ML UD FEED TUBE (13:42)
== END 2024-11-22 16:00 | DRG 137 ==
LOC: ANHED 15:10 → ANH3MED 16:14
PROVIDERS: Internal Medicine; Student in an Organized Health Care Education/Training Program; Admitting Provider Internal Medicine; Emergency Provider Emergency Medicine; Visit Provider Internal Medicine
DX: J69.0 Pneumonitis due to inhalation of food and vomit (principal); G40.909 Epilepsy, unspecified, not intractable, without status epilepticus; F01.52 Vascular dementia, unspecified severity, with psychotic disturbance; J96.11 Chronic respiratory failure with hypoxia; D50.9 Iron deficiency anemia, unspecified; J44.9 Chronic obstructive pulmonary disease, unspecified; I73.9 Peripheral vascular disease, unspecified; K59.00 Constipation, unspecified; R00.0 Tachycardia, unspecified; N40.0 Benign prostatic hyperplasia without lower urinary tract symptoms; K31.84 Gastroparesis; Z93.0 Tracheostomy status; I69.354 Hemiplegia and hemiparesis following cerebral infarction affecting left non-dominant side; I69.320 Aphasia following cerebral infarction; I69.391 Dysphagia following cerebral infarction; Z86.718 Personal history of other venous thrombosis and embolism; Z89.612 Acquired absence of left leg above knee; Z93.1 Gastrostomy status; Z87.891 Personal history of nicotine dependence
CPT/HCPCS: 36415; 71046; 71260; 74177; 80048; 80053; 81001; 82948; 83605; 83690; 85025; 85027; 85055; 85730; 87040; 87070; 87205; 93005; 94640; 99285; A4629; A9270; J0692; J0713; J1650; J1836; J2405; J7030; Q9967

== ENCOUNTER 2024-11-23 08:06 | Emergency (ER) | payer OTHER, SELFPAY ==
--- NOTE | ~2024-11-23 | CT_ITS ---
EXAM: CT chest abdomen pelvis w con - 11/23/2024 9:10 CDT HISTORY: 64 years old Male with Vomiting, non-verb, hx of gastroparesis/aspiration TECHNIQUE: Multidetector CT of the chest, abdomen and pelvis was performed with intravenous contrast Coronal and sagittal reformats were also provided for review. Automatic exposure control was used for this study. CONTRAST: 100 cc of Optiray 350 was used for this study COMPARISON: 11/20/2024 FINDINGS: CHEST: VISUALIZED LOWER NECK: Thyroid gland appears normal. No supraclavicular lymphadenopathy. AIRWAYS: Patent centrally. Tracheostomy seen. LUNGS and PLEURA: Bibasilar atelectasis and/or scarring. MEDIASTINUM and ERI: No evidence of mediastinal hematoma. No lymphadenopathy. HEART AND PERICARDIUM: Heart is normal in size. No pericardial effusion. CHEST WALL: No axillary lymphadenopathy. Chest wall appears normal. VASCULATURE: Thoracic aorta and pulmonary arteries are normal in caliber. ABDOMEN and PELVIS: LIVER: Within normal limits. GALLBLADDER: No calcified gallstones. BILE DUCTS: Normal caliber. SPLEEN: Within normal limits. PANCREAS: Within normal limits. ADRENAL GLANDS: Within normal limits. KIDNEYS and URETERS: No hydronephrosis or hydroureter. No evidence for nephroureterolithiasis. URINARY BLADDER: Within normal limits. STOMACH and BOWEL: Limited evaluation without adequate distention due to lack of oral contrast. Withi n the limits there appears to be no abnormal bowel wall thickening. No bowel obstruction. Appendix is within normal limits. Gastrostomy tube is seen in the stomach. The balloon appears to be inflated in the mid to distal stomach. REPRODUCTIVE ORGANS: Within normal limits. MESENTERY/PERITONEAL CAVITY: No free fluid or pneumoperitoneum. LYMPH NODES: No abdominal or pelvic lymphadenopathy. ABDOMINAL WALL: Small fat-containing umbilical hernia. VASCULATURE: Within normal limits. MUSCULOSKELETAL, THORACIC AND LUMBAR SPINE: Multilevel degenerative changes of the spine. IMPRESSION: Gastrostomy tube with its balloon inflated in the mid to distal stomach. The balloon appears to be ca using distal gastric obstruction. Consider pulling the balloon back into the stomach wall so that its no longer causing distal gastric obstruction. Reviewed, dictated and finalized at location A. IMPRESSION: Gastrostomy tube with its balloon inflated in the mid to distal stomach. The ba lloon appears to be causing distal gastric obstruction. Consider pulling the ba lloon back into the stomach wall so that its no longer causing distal gastric o bstruction.
--- NOTE | ~2024-11-23 | XR_ITS ---
EXAM/PROCEDURE: XR chest 1V - 11/23/2024 9:25 CDT HISTORY: 64 years old Male with Vomiting, Possible aspiration TECHNIQUE: AP view(s) of the chest. COMPARISON: None available. FINDINGS: LUNGS/ PLEURA: Airspace opacities in bilateral lung bases, right greater than left. No pneumothorax o r pleural effusion. HEART/ MEDIASTINUM: Heart appears normal in size. BONES: Degenerative changes. OTHER: Visualized upper abdomen is unremarkable. Tracheostomy seen. IMPRESSION: Airspace opacities in bilateral lung bases, right greater than left. Findings can represent pneumonia in appropriate clinical settings. Short-term follow-up chest radiograph is recommended after appropr iate clinical therapy. Reviewed, dictated and finalized at location A. IMPRESSION: Airspace opacities in bilateral lung bases, right greater than left. Findings c an represent pneumonia in appropriate clinical settings. Short-term follow-up c hest radiograph is recommended after appropriate clinical therapy.
[2024-11-23 08:00] VITALS: BP 162/104; PULSE 101; RESP 18; TEMP 36.6; O2SAT 95
--- NOTE | 2024-11-23 08:26 | ECG_ITS ---
Test Date: 2024-11-23 08:33:59 Measurements Intervals Reading Rate: 103 P: 59 NJ: 156 QRS: -25 QRSD: 85 T: 65 QT: 331 QTc: 434 Interpretive Statements SINUS TACHYCARDIA POSSIBLE LEFT ATRIAL ENLARGEMENT ANTEROSEPTAL INFARCT, AGE INDETERMINATE INFERIOR INFARCT, AGE INDETERMINATE BASELINE ARTIFACT- I, II, III, AVR, AVL, AVF, V1-V2 ABNORMAL ECG Compared to ECG 11/19/2024 11:46:48 No significant changes Electronically Signed On 11-23-2024 08:54:39 CDT by Dvae Hernandez D.O.
--- NOTE | 2024-11-23 08:58 | ED_ITS ---
HPI - General Adult General Chief complaint: Abdominal Pain Stated complaint: pna problems Time Seen by Provider: 11/23/24 08:11 History of Present Illness HPI narrative: This patient is well-known to our hospital. Patient is nonverbal but can shake his head yes or no to questions. 64-year-old male with a past medical history of CVA, chronic respiratory failure status post tracheostomy and PEG tube, gastroparesis, seizure disorder, psychosis, dementia with psychosis, peripheral vascular disease with left [id number] amputation who presented to the ER via EMS from [facility] due to vomiting. Patient was discharged yesterday after admission for aspiration pneumonia/pneumonitis. Today at the half-way he had an episode vomiting amount of his mouth and out his trach. shelter then sent him hospital for evaluation. Patient states that he is nauseous. He has some ab upper abdominal pain and vomiting. Related Data Home Medications ?Medication ?Instructions ?Recorded ?Confirmed ?Last Taken ?Type metoprolol tartrate 25 mg tablet 25 mg feeding tube BID 12/18/22 11/19/24 10/16/24 20:55 History 25 mg polyethylene glycol 3350 17 17 g feeding tube DAILY PRN 12/18/22 11/19/24 10/16/24 17:10 History gram/dose oral powder Constipation 17 grams bisacodyl 10 mg rectal suppository 10 mg RECTAL DAILY PRN Constipation 02/11/23 11/19/24 10/17/24 01:50 History 10 mg sennosides 8.6 mg tablet (senna) 8.6 mg feeding tube BID 02/11/23 11/19/24 10/16/24 10:00 History 8.6 mg guaifenesin 100 mg/5 mL oral liquid 300 mg feeding tube BID PRN Cough 07/08/23 11/19/24 10/17/24 05:50 History 300 mg magnesium hydroxide 400 mg/5 mL 30 ml feeding tube HS PRN 12/13/23 11/19/24 09/11/24 12:10 History oral suspension (Milk of Magnesia) Constipation 30 mL atorvastatin 40 mg tablet 40 mg feeding tube HS 02/10/24 11/19/24 10/16/24 21:00 History 40 mg calcium carbonate 500 mg/5 mL (as 1,250 mg feeding tube Q6H PRN 02/10/24 11/19/24 Unknown History calcium carb 1,250 mg/5 mL) oral Heartburn suspension folic acid 1 mg tablet 1 mg feeding tube DAILY 02/10/24 11/19/24 10/16/24 10:00 History 1 mg ipratropium 0.5 mg-albuterol 3 mg 3 ml inhalation Q6H PRN Shortness 02/10/24 11/19/24 Unknown History (2.5 mg base)/3 mL nebulization Of Breath soln magnesium citrate (Citroma oral 296 ml feeding tube DAILY PRN 02/10/24 11/19/24 Unknown History solution) Constipation thiamine HCl (vitamin B1) 100 mg 100 mg feeding tube DAILY 02/10/24 11/19/24 10/16/24 10:00 History tablet 100 mg acetaminophen 650 mg/20.3 mL oral 650 mg feeding tube Q4H PRN Pain 03/30/24 11/19/24 10/16/24 17:10 History suspension (Scale Score 1-3) 650 mg aspirin 81 mg chewable tablet 81 mg feeding tube DAILY 03/30/24 11/19/24 10/16/24 10:00 History 81 mg finasteride 5 mg tablet 5 mg feeding tube DAILY 10/18/24 11/19/24 10/16/24 10:00 History 5 mg glycopyrrolate 2 mg tablet 2 mg feeding tube Q8H 10/18/24 11/19/24 10/17/24 01:50 History 2 mg metoclopramide HCl 10 mg tablet 10 mg feeding tube TID 10/18/24 11/19/24 10/16/24 19:15 History 10 mg ondansetron HCl 4 mg tablet 4 mg feeding tube Q6H PRN nausea 10/18/24 11/19/24 10/15/24 00:50 History and vomiting 4 mg pantoprazole 40 mg tablet,delayed 40 mg PO Q12H 10/18/24 11/19/24 10/16/24 17:10 History release 40 mg Allergies Allergy/AdvReac Type Severity Reaction Status Date / Time clonazepam AdvReac Unknown drowsiness Verified 11/23/24 08:12 [facility] Past Medical History Medical History History of multiple strokes Pancreatitis 09/2024 Deep venous thrombosis of upper extremity Benign prostatic hyperplasia Cerebrovascular accident Residual expressive aphasia, dysphagia, and left-sided weakness. Chronic obstructive pulmonary disease Esophageal diverticulum Gastroparesis Iron deficiency anemia Vascular dementia with psychotic disturbance Seizure disorder Surgical History Surgical History History of gastrostomy tube placement (07/09/23) History of tracheostomy History of left above knee amputation Family History Family History Other Unknown family medical history Social History Social History Social History: Surrogate medical decision maker: Adriane Hilliard, sibling. Code status: Full code. 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 Nonverbal, alert shaking his head yes or no to questions Head: atraumatic. EYES: EOMI, NOSE: Atraumatic NECK: Trachea midline RESPIRATORY: Scattered rhonchi, no increased work of breathing, 95% on room air CARDIOVASCULAR: RRR, no peripheral edema ABDOMINAL: G-tube in place, abdomen is distended, mildly tender in the epigastric region MUSCULOSKELETAl: Left AKA NEURO: Alert. SKIN:: Warm, dry. Normal color PSYCHIATRIC: Normal affect Course Vital Signs Vital signs: Vital Signs Temperature 98 F 11/23/24 08:00 Pulse Rate 101 H 11/23/24 08:00 Respiratory Rate 18 11/23/24 08:00 Blood Pressure 162/104 H 11/23/24 08:00 Pulse Oximetry 95 11/23/24 08:00 Oxygen Delivery Room Air 11/23/24 08:00 Temperature 98 F 11/23/24 08:00 Pulse Rate 94 11/23/24 12:00 Respiratory Rate 18 11/23/24 12:00 Blood Pressure 164/100 H 11/23/24 12:00 Pulse Oximetry 97 11/23/24 12:00 Oxygen Delivery Room Air 11/23/24 08:00 Medical Decision Making [facility] Narrative Medical decision making narrative: -Course: 64-year-old male presenting for an episode nausea and vomiting. There are significant communication barriers so a of broader workup was ordered including a CT chest abdomen pelvis. CT chest abdomen pelvis showed that his G- tube balloon was causing a gastric outlet obstruction likely resulting in his vomiting. We were able to withdraw the G tube and secured it to the abdominal wall. It was then flushed and he was monitored without any further episodes of vomiting. I spoke with his sister who is his primary law office manager and she is working on getting him follow up with at [facility] who placed his G-tube They are considering switching to G-J-tube given his slow gastric emptying. This time the patient's vital signs are stable as laboratory studies are within normal limits. He has no respiratory complaints. Patient be discharged back to the half-way with instructions to follow-up with GI as yoselin for further management. He can return any time if he develops any new or worsening symptoms. -DDX includes but is not limited to: Aspiration pneumonia dehydration sepsis UTI gastroenteritis G-tube malpositioning Vital Signs Vital Signs: Vital Signs Temperature 98 F 11/23/24 08:00 Pulse Rate 101 H 11/23/24 08:00 Respiratory Rate 18 11/23/24 08:00 Blood Pressure 162/104 H 11/23/24 08:00 Pulse Oximetry 95 11/23/24 08:00 Oxygen Delivery Room Air 11/23/24 08:00 Temperature 98 F 11/23/24 08:00 Pulse Rate 94 11/23/24 12:00 Respiratory Rate 18 11/23/24 12:00 Blood Pressure 164/100 H 11/23/24 12:00 Pulse Oximetry 97 11/23/24 12:00 Oxygen Delivery Room Air 11/23/24 08:00 Lab Data 11/23/24 09:05 11/23/24 09:18 Labs: Lab Results 11/23/24 11/23/24 11/23/24 Range/Units 09:05 09:18 09:52 WBC 7.0 (4.5-10.0) K/mm3 RBC 4.00 L (4.6-6.20) M/mm3 Hgb 12.7 L (14.0-18.0) g/dL Hct 39.0 L (42.0-52.0) % MCV 97.5 (80-100) fl MCH 31.8 (26-34) pg MCHC 32.6 (32-36) g/dl RDW 13.2 (11.5-14.5) % Plt Count 177 (150-375) k/mm3 MPV 11.2 H (7.4-10.4) fl Immature Gran % (Auto) 0.3 (0-0.5) % Neut % (Auto) 56.8 (45.5-73.1) % Lymph % (Auto) 31.1 (18.3-44.2) % [place] % (Auto) 8.4 (2.6-8.5) % Eos % (Auto) 3.1 (0-4.4) % Baso % (Auto) 0.3 (0.2-1.2) % Lymph # (Auto) 2.19 (0.9-3.2) K/mm3 [place] # (Auto) 0.6 (0.1-0.6) K/mm3 Eos # (Auto) 0.2 (0-0.3) K/mm3 Baso # (Auto) 0.0 (0.0-0.1) K/mm3 Abs Immat Gran (auto) 0.02 (0.00-0.031) K/mm3 Absolute Neuts (auto) 4.0 (1.3-6.7) K/mm3 Absolute Nucleated RBC 0.000 (0.0-0.012) K/mm3 Nucleated RBC % 0.0 (0.0-0.2) % Sodium 140 (137-145) mmol/L Potassium 3.7 (3.4-5.0) mmol/L Chloride 105 (98-107) mmol/L Carbon Dioxide 25 (22-30) mmol/L Anion Gap 10 (4-12) mmol/L BUN 7 L (9-20) mg/dL Creatinine 0.44 L 0.40 L (0.7-1.3) mg/dL Estim Creat Clear Calc 146 158 ml/min Estimated GFR > 60 > 60 (59 - ) Glucose 111 H (65-110) mg/dL Lactic Acid 1.5 (0.7-2.0) mmol/L Calcium 9.8 (8.4-10.2) mg/dL Total Bilirubin 0.4 (0.2-1.3) mg/dL AST 40 (17-59) U/L ALT 54 H (6-50) U/L Alkaline Phosphatase 111 (38-126) U/L Total Protein 8.2 (6.3-8.2) g/dL Albumin 4.1 (3.5-5.1) g/dL Lipase 115 (23-300) U/L Urine Color Yellow (Yellow) Urine Appearance Clear (Clear) Urine pH 8.0 (5.0-9.0) Ur Specific [place] 1.042 H (1.001-1.035) Urine Protein Trace (Negative) mg/dL Urine Glucose (UA) Negative (Negative) mg/dL Urine Ketones Negative (Negative) mg/dL Ur Blood (Man) Negative (Negative) Urine Nitrate Negative (Negative) Urine Bilirubin Negative (Negative) Urine Urobilinogen 1.0 (<2.0) mg/dL Leukocyte Esterase Rfl Negative (Negative) NOEL/UL Urine RBC 0-2 (0-2) /hpf Urine WBC 0-5 (0-3) /hpf Ur Squamous Epith Cells None seen (Few) /hpf Urine Bacteria None seen /hpf Urine Casts 0-2 Discharge Plan Discharge Clinical Impression: Vomiting Patient Disposition: Home Condition: Stable Instructions: Antibiotic Form, Acute Nausea and Vomiting (DC) Additional Instructions: Mr Pat was seen for vomiting. On his CT scan his G-tube balloon had obstructed his gastric outlet. This was tightened and secured to the abdominal wall. We were able to flush his G-tube without any further vomiting. He can use Zofran for vomiting. He needs to follow up closely with his GI physician at [facility] for further management. If he develops any new or worsening symptoms he can return to the ED re-evaluation. Patient's care is specialized and if possible he should go to [facility]. Patient Language: Macanese Prescriptions: New metoclopramide HCl [Reglan] 10 mg tablet 10 mg feeding tube Q6H PRN (Reason: nausea and vomiting) Qty: 30 0RF No Action bisacodyl 10 mg Suppository 10 mg RECTAL DAILY PRN (Reason: Constipation) Rx Instructions: if no results for MOM sennosides [senna] 8.6 mg Tablet 8.6 mg feeding tube BID guaifenesin 100 mg/5 mL liquid 300 mg feeding tube BID PRN (Reason: Cough) magnesium hydroxide [Milk of Magnesia] 400 mg/5 mL Suspension 30 ml feeding tube HS PRN (Reason: Constipation) Rx Instructions: If no BM in 3 days amoxicillin-pot clavulanate 400-57 mg/5 mL Suspension For Reconstitution 5 ml feeding tube Q8HR Qty: 90 0RF polyethylene glycol 3350 17 gram/dose powder 17 g feeding tube DAILY PRN (Reason: Constipation) metoprolol tartrate 25 mg tablet 25 mg feeding tube BID atorvastatin 40 mg tablet 40 mg feeding tube HS ipratropium-albuterol 0.5 mg-3 mg(2.5 mg base)/3 mL solution for nebulization 3 ml INHALATION Q6H PRN (Reason: Shortness Of Breath) thiamine HCl (vitamin B1) 100 mg Tablet 100 mg feeding tube DAILY magnesium citrate [Citroma] Solution 296 ml feeding tube DAILY PRN (Reason: Constipation) Rx Instructions: if no results from enema folic acid 1 mg tablet 1 mg feeding tube DAILY calcium carbonate 500 mg/5 mL (1,250 mg/5 mL) Suspension 1,250 mg feeding tube Q6H PRN (Reason: Heartburn) aspirin 81 mg Tablet,Chewable 81 mg feeding tube DAILY acetaminophen 650 mg/20.3 mL Suspension 650 mg feeding tube Q4H PRN (Reason: Pain (Scale Score 1-3)) finasteride 5 mg tablet 5 mg feeding tube DAILY glycopyrrolate 2 mg tablet 2 mg feeding tube Q8H metoclopramide HCl 10 mg tablet 10 mg feeding tube TID ondansetron HCl 4 mg tablet 4 mg feeding tube Q6H PRN (Reason: nausea and vomiting) pantoprazole 40 mg tablet,delayed release (DR/EC) 40 mg PO Q12H amlodipine [Norvasc] 5 mg Tablet 5 mg feeding tube DAILY 30 Days Qty: 30 1RF isosorbide dinitrate 5 mg Tablet 5 mg feeding tube TID 30 Days Qty: 90 1RF levetiracetam 100 mg/mL solution 2,000 mg feeding tube BID 30 Days Qty: 0 1RF lacosamide 10 mg/mL solution 250 mg feeding tube BID 30 Days Qty: 200 2RF Follow-up/Referrals: Dina,Jack OLSEN [Other]
[2024-11-23] MEDS: METOCLOPRAMIDE HCL INJ 10 MG/2 ML VIAL IV PUSH (09:09)
[2024-11-23] MEDS: SODIUM CHLORIDE 0.9% IV 1,000 ML 999 ML IV CONT (09:13)
[2024-11-23 09:14] LABS: Basophils Percent Auto 0.3 % (0.2-1.2); Eosinophils Absolute Auto 0.2 K/mm3 (0-0.3); Eosinophils Percent Auto 3.1 % (0-4.4); Hemoglobin 12.7 g/dL (14.0-18.0); Immature Granulocyte Absolute 0.02 K/mm3 (0.00-0.031); Immature Granulocyte Percent A 0.3 % (0-0.5); Lymphocytes Absolute Auto 2.19 K/mm3 (0.9-3.2); Lymphocytes Percent Auto 31.1 % (18.3-44.2); Mean Corpuscular HGB Conc 32.6 g/dl (32-36); Mean Corpuscular Hemoglobin 31.8 pg (26-34); Mean Corpuscular Volume 97.5 fl (80-100); Mean Platelet Volume 11.2 fl (7.4-10.4); Monocytes Absolute Auto 0.6 K/mm3 (0.1-0.6); Monocytes Percent Auto 8.4 % (2.6-8.5); Neutrophils Percent Auto 56.8 % (45.5-73.1); Platelet Count Result 177 k/mm3 (150-375); Red Cell Distribution Width 13.2 % (11.5-14.5)
[2024-11-23 09:21] LABS: Estimated CRCL calculation 158 ml/min; Estimated Glomerular Filt Rate > 60
[2024-11-23 09:31] LABS: Lactic Acid Reflex 1.5 mmol/L (0.7-2.0)
[2024-11-23 09:33] LABS: Alanine Aminotransferase 54 U/L (6-50); Albumin Level 4.1 g/dL (3.5-5.1); Alkaline Phosphatase 111 U/L (38-126); Anion Gap 10 mmol/L (4-12); Aspartate Amino Transferase 40 U/L (17-59); Bilirubin,Total 0.4 mg/dL (0.2-1.3); Blood Urea Nitrogen 7 mg/dL (9-20); Calcium 9.8 mg/dL (8.4-10.2); Carbon Dioxide 25 mmol/L (22-30); Chloride 105 mmol/L (98-107); Estimated CRCL calculation 146 ml/min; Estimated Glomerular Filt Rate > 60; Glucose 111 mg/dL (65-110); Lipase 115 U/L (23-300); Potassium 3.7 mmol/L (3.4-5.0); Sodium 140 mmol/L (137-145); Total Protein 8.2 g/dL (6.3-8.2)
[2024-11-23 09:44] VITALS: BP 174/101; PULSE 98; RESP 18; O2SAT 97
[2024-11-23 10:10] LABS: Add Urine Microscopic? YES; Appearance Urine Clear (Clear); Bacteria Urine None Seen /hpf; Bilirubin Urine Negative (Negative); Blood Urine Negative (Negative); Color Urine Yellow (Yellow); Glucose Urine UA Negative (Negative); Ketones Urine Negative (Negative); Leukocyte Esterase Ur Negative LEU/UL (Negative); Nitrate Urine Negative (Negative); Non Pathogenic Casts 0-2; Protein Urine Trace mg/dL (Negative); RBC Urine 0-2 /hpf (0-2); Specific Grav Ur 1.042 (1.001-1.035); Squamous Epithelial Cell Urine None Seen /hpf (Few); WBC Urine 0-5 /hpf (0-3)
--- NOTE | 2024-11-23 10:39 | PC.NURSE ---
This RN spoke with Summer SIMON at [facility] and gave her update on pt status including that all test results are back and waiting EDP's review of them
[2024-11-23 11:00] VITALS: BP 179/105; PULSE 94; RESP 18; O2SAT 99
[2024-11-23 11:30] VITALS: BP 195/105; PULSE 104; RESP 19; O2SAT 100
--- NOTE | 2024-11-23 11:50 | PC.NURSE ---
GT flushed with 100ml water as verbally ordered by Dr Hobbs. Patient tolerated well, Trach suctioning done, new dressing placed under trach and at GT tube insertion site. Rolled wash cloths placed in bilat hands after patient complained of pain-sister stated that patient is supposed to have braces on both his hands for contractures. Sister asking to speak with Dr Hobbs --will notify him.
[2024-11-23 12:00] VITALS: BP 164/100; PULSE 94; RESP 18; O2SAT 97
[2024-11-23] MEDS: BISACODYL 10 MG SUPPOSITORY RECTAL (12:40)
[2024-11-23 13:00] VITALS: BP 160/99; PULSE 87; RESP 18; TEMP 36.4; O2SAT 98
== END 2024-11-23 13:46 | disposition home or self-care (01) ==
PROVIDERS: Emergency Provider Emergency Medicine
DX: R11.10 Vomiting, unspecified (principal); I69.320 Aphasia following cerebral infarction; I69.391 Dysphagia following cerebral infarction; I69.354 Hemiplegia and hemiparesis following cerebral infarction affecting left non-dominant side; R13.10 Dysphagia, unspecified; Z93.0 Tracheostomy status; G40.909 Epilepsy, unspecified, not intractable, without status epilepticus; F03.90 Unspecified dementia, unspecified severity, without behavioral disturbance, psychotic disturbance, mood disturbance, and anxiety; Z86.718 Personal history of other venous thrombosis and embolism; J44.9 Chronic obstructive pulmonary disease, unspecified; Z89.612 Acquired absence of left leg above knee; Z87.891 Personal history of nicotine dependence
CPT/HCPCS: 36415; 71045; 71260; 74177; 80053; 81001; 83605; 83690; 85025; 93005; 96361; 96374; 99284; A9270; J2765; J7030; Q9967

== ENCOUNTER 2024-11-24 12:51 | Inpatient (IN) | payer OTHER, SELFPAY ==
[2024-11-24] VITALS (12 sets, daily range): BP systolic 130–160; BP diastolic 82–95; PULSE 92–124; RESP 22–30; TEMP 36.7; O2SAT 97–100
--- NOTE | ~2024-11-24 | XR_ITS ---
EXAMINATION: XR chest 1V Exam Date/Time: 11/24/2024 15:00 CDT HISTORY: seizures Comparison: 11/23/2024. RESULT: Lines, tubes, and devices: Tracheostomy tube, in good position. Lungs and pleura: Subsegmental streaky bibasilar opacities. Cardiomediastinal silhouette: Stable. Other: No acute osseous or upper abdominal finding. IMPRESSION: Subsegmental bibasilar atelectasis/consolidation. Reviewed, dictated and finalized at location K.
--- NOTE | ~2024-11-24 | CT_ITS ---
EXAMINATION: CT brain wo con DATE: 11/24/2024 15:05 INDICATION: multiple seizures . TECHNIQUE: Computed tomography (CT) of the head was performed without intravenous contrast. The mA wa s adjusted according to patient size. Iterative reconstruction technique was employed. The dose-lengt h product was 681.00 mGy-cm. COMPARISON: 03/29/2024, 02/10/2024. FINDINGS: No acute intracranial hemorrhage or extra-axial fluid collection. No hydrocephalus, mass, or herniation. No acute ischemic infarct. Unremarkable dural venous sinus attenuation. No acute osseous abnormality. Aerated secretions in the right sphenoid sinus, near complete opacification of the right maxillary si nus with surrounding sclerosis, polypoid density in the right nasal cavity, trace right mastoid fluid aerated spaces are clear. Moderate atrophy and chronic white matter change. Atherosclerotic intracranial calcification. 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 Right occipital encephalomalacia. Left occipital subcutaneous scalp cysts. IMPRESSION: No acute intracranial process. Possible acute right sphenoid sinusitis. Chronic right maxillary sinus itis. Reviewed, dictated and finalized at location K. IMPRESSION: No acute intracranial process. Possible acute right sphenoid sinusitis. Chronic right maxillary sinusitis.
--- NOTE | 2024-11-24 14:01 | ECG_ITS ---
Test Date: 2024-11-24 16:19:15 Measurements Intervals Phillips Rate: 107 P: 72 AK: 174 QRS: -25 QRSD: 90 T: 59 QT: 342 QTc: 457 Interpretive Statements SINUS TACHYCARDIA POSSIBLE LEFT ATRIAL ENLARGEMENT ANTEROSEPTAL INFARCT, AGE INDETERMINATE INFERIOR INFARCT, AGE INDETERMINATE BASELINE WANDER- I, II, III, AVR, AVL, AVF, V1-V6 ABNORMAL ECG Compared to ECG 11/23/2024 08:33:59 No significant changes Electronically Signed On 11-24-2024 20:08:48 CDT by Dave Hernandez D.O.
[2024-11-24] MEDS: LORazepam INJ (*CRX) 2 MG/ML VIAL IV PUSH (15:14)
[2024-11-24] MEDS: SODIUM CHLORIDE 0.9% IV 1,000 ML 999 ML IV CONT ×2 (15:15→16:53)
[2024-11-24 15:32] LABS: Basophils Percent Auto 0.2 % (0.2-1.2); Eosinophils Absolute Auto 0.1 K/mm3 (0-0.3); Eosinophils Percent Auto 0.9 % (0-4.4); Hematocrit 39.5 % (42.0-52.0); Hemoglobin 12.8 g/dL (14.0-18.0); Immature Granulocyte Absolute 0.05 K/mm3 (0.00-0.031); Immature Granulocyte Percent A 0.5 % (0-0.5); Lymphocytes Absolute Auto 1.54 K/mm3 (0.9-3.2); Lymphocytes Percent Auto 15.1 % (18.3-44.2); Mean Corpuscular HGB Conc 32.4 g/dl (32-36); Mean Corpuscular Hemoglobin 31.4 pg (26-34); Mean Corpuscular Volume 96.8 fl (80-100); Mean Platelet Volume 11.6 fl (7.4-10.4); Monocytes Absolute Auto 0.7 K/mm3 (0.1-0.6); Monocytes Percent Auto 6.4 % (2.6-8.5); Neutrophils Absolute Auto 7.8 K/mm3 (1.3-6.7); Neutrophils Percent Auto 76.9 % (45.5-73.1); Platelet Count Result 232 k/mm3 (150-375); Red Blood Count 4.08 M/mm3 (4.6-6.20); Red Cell Distribution Width 13.1 % (11.5-14.5); White Blood Count 10.2 K/mm3 (4.5-10.0)
[2024-11-24 15:34] LABS: Alanine Aminotransferase 61 U/L (6-50); Alkaline Phosphatase 103 U/L (38-126); Anion Gap 11 mmol/L (4-12); Aspartate Amino Transferase 53 U/L (17-59); Bilirubin,Total 0.4 mg/dL (0.2-1.3); Blood Urea Nitrogen 10 mg/dL (9-20); Calcium 9.7 mg/dL (8.4-10.2); Carbon Dioxide 25 mmol/L (22-30); Chloride 102 mmol/L (98-107); Estimated CRCL calculation 122 ml/min; Estimated Glomerular Filt Rate > 60; Glucose 122 mg/dL (65-110); Magnesium 1.9 mg/dL (1.6-2.3); Potassium 3.4 mmol/L (3.4-5.0); Sodium 138 mmol/L (137-145)
[2024-11-24 15:35] LABS: Lactic Acid Reflex 2.5 mmol/L (0.7-2.0)
[2024-11-24] MEDS: LACOSAMIDE (*CRX) 50 MG TABLET 250 MG FEED TUBE (15:37)
[2024-11-24 15:38] LABS: INR 1.1; Partial Thromboplastin Time 32.7 Seconds (22.3-36.8); Prothrombin Time 13.8 Seconds (11.1-14.7)
--- NOTE | 2024-11-24 15:54 | ED_ITS ---
HPI - Seizure General Chief Complaint: Seizure <AUGUSTO Kulkarni Filed: 11/25/24 02:06> Stated Complaint: seizure <AUGUSTO Kulkarni Last Filed: 11/25/24 02:06> Time Seen by Provider: 11/24/24 14:01 <AUGUSTO Kulkarni Last Filed: 11/25/24 02:06> Source: patient, family and old records reviewed <AUGUSTO Kulkarni Filed: 11/25/24 02:06> Mode of arrival: EMS <AUGUSTO Kulkarni Filed: 11/25/24 02:06> Limitations: clinical condition <AUGUSTO Kulkarni Filed: 11/25/24 02:06> History of Present Illness HPI Narrative: Patient is a 64-year-old male, with PMH of tracheostomy, PEG tube, left AKA, CVA, TBI, vascular dementia, seizure disorder, who presents to the ED via EMS with report of multiple seizures. Patient is a resident of [facility]. senior care reported that patient had multiple seizures today, lasting approximately 2 minutes at a time. Patient is on Keppra and lacosamide for his seizures. Per skilled nursing records, he did receive Keppra 2000 mg this morning. It does not appear he received his lacosamide. Patient unable to provide any information. <AUGUSTO Kulkarni Last Filed: 11/25/24 02:06> Seizure History: Yes <AUGUSTO Kulkarni Last Filed: 11/25/24 02:06> Related Data Home Medications: Home Medications ?Medication ?Instructions ?Recorded ?Confirmed ?Last Taken ?Type metoprolol tartrate 25 mg tablet 25 mg feeding tube BID 12/18/22 11/25/24 10/16/24 20:55 History 25 mg polyethylene glycol 3350 17 17 g feeding tube DAILY PRN 12/18/22 11/25/24 10/16/24 17:10 History gram/dose oral powder Constipation 17 grams bisacodyl 10 mg rectal suppository 10 mg RECTAL DAILY PRN Constipation 02/11/23 11/25/24 10/17/24 01:50 History 10 mg sennosides 8.6 mg tablet (senna) 8.6 mg feeding tube BID 02/11/23 11/25/24 10/16/24 10:00 History 8.6 mg guaifenesin 100 mg/5 mL oral liquid 300 mg feeding tube Q12H PRN Cough 07/08/23 11/25/24 10/17/24 05:50 History 300 mg magnesium hydroxide 400 mg/5 mL 30 ml feeding tube HS PRN 12/13/23 11/25/24 09/11/24 12:10 History oral suspension (Milk of Magnesia) Constipation 30 mL atorvastatin 40 mg tablet 40 mg feeding tube HS 02/10/24 11/25/24 10/16/24 21:00 History 40 mg calcium carbonate 500 mg/5 mL (as 1,250 mg feeding tube Q6H PRN 02/10/24 11/25/24 Unknown History calcium carb 1,250 mg/5 mL) oral Heartburn suspension folic acid 1 mg tablet 1 mg feeding tube DAILY 02/10/24 11/25/24 10/16/24 10:00 History 1 mg ipratropium 0.5 mg-albuterol 3 mg 3 ml inhalation Q6H PRN Shortness 02/10/24 11/25/24 Unknown History (2.5 mg base)/3 mL nebulization Of Breath soln magnesium citrate (Citroma oral 296 ml feeding tube DAILY PRN 02/10/24 11/25/24 Unknown History solution) Constipation thiamine HCl (vitamin B1) 100 mg 100 mg feeding tube DAILY 02/10/24 11/19/24 10/16/24 10:00 History tablet 100 mg acetaminophen 650 mg/20.3 mL oral 650 mg feeding tube Q4H PRN Pain 03/30/24 11/25/24 10/16/24 17:10 History suspension (Scale Score 1-3) 650 mg aspirin 81 mg chewable tablet 81 mg feeding tube DAILY 03/30/24 11/25/24 10/16/24 10:00 History 81 mg finasteride 5 mg tablet 5 mg feeding tube DAILY 10/18/24 11/25/24 10/16/24 10:00 History 5 mg glycopyrrolate 2 mg tablet 2 mg feeding tube Q8H 10/18/24 11/25/24 10/17/24 01:50 History 2 mg metoclopramide HCl 10 mg tablet 10 mg feeding tube Q6H PRN nausea 10/18/24 11/25/24 10/16/24 19:15 History and vomiting 10 mg ondansetron HCl 4 mg tablet 4 mg feeding tube Q6H PRN nausea 10/18/24 11/25/24 10/15/24 00:50 History and vomiting 4 mg pantoprazole 40 mg tablet,delayed 40 mg PO Q12H 10/18/24 11/25/24 10/16/24 17:10 History release 40 mg <Shakila Hernandez PA-C - Last Filed: 11/25/24 02:06> Allergies/Adverse Reactions: Allergies Allergy/AdvReac Type Severity Reaction Status Date / Time clonazepam AdvReac Unknown drowsiness Verified 11/25/24 16:21 <Shakila Hernandez PA-C - Last Filed: 11/25/24 02:06> Review of Systems 2 Review of Systems: ROS unobtainable: Yes unobtainable due to medical condition and unobtainable due to mental status <AUGUSTO Kulkarni Last Filed: 11/25/24 02:06> [facility] Past Medical History Medical History: Medical History Acute lactic acidosis History of multiple strokes Residual expressive aphasia, dysphagia, and left-sided weakness. Esophagitis Anemia Aspiration pneumonia Elevated LFTs Atrial fibrillation with rapid ventricular response Thrombocytopenia Rash of face Lung collapse Right Mucus plugging of bronchi Increased tracheal secretions Epilepsy Intractable seizure disorder Status epilepticus Severe sepsis Tracheitis Sepsis with acute hypoxic respiratory failure Acute kidney injury UTI (urinary tract infection) Acute pancreatitis Diarrhea Cholecystitis Pancreatitis 09/2024 Deep venous thrombosis of upper extremity Benign prostatic hyperplasia Esophageal diverticulum Gastroparesis Iron deficiency anemia Vascular dementia with psychotic disturbance <AUGUSTO Kulkarni Last Filed: 11/25/24 02:06> Surgical History Surgical History: Surgical History History of gastrostomy tube placement (07/09/23) History of tracheostomy History of left above knee amputation <AUGUSTO Kulkarni Last Filed: 11/25/24 02:06> Family History Family History: Family History Other Unknown family medical history <AUGUSTO Kulkarni Last Filed: 11/25/24 02:06> Social History Social History: Social History Social History: Surrogate medical decision maker: Adriane Hilliard, sibling. Code status: Full code. 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 HEAD: Normocephalic, atraumatic. RESPIRATORY: Airway patent, respirations nonlabored. Clear to auscultation bilaterally, no rales, rhonchi, wheezing. Tracheostomy present w/o obvious secretions or inflammation surrounding stoma CARDIOVASCULAR: Tachycardic with regular rhythm without murmurs, rubs, or gallops. ABD: G tube in abdomen. No appreciable tenderness. MUSCULOSKELETAL: No gross deformities. L hemiparesis. L AKA. R leg in cushioned boot. SKIN: Warm, dry, normal color. Diffuse dry skin. NEURO: Occasionally alert, nonverbal, occasionally able to shake head yes/no. L hemiparesis r/t previous CVA. Able to follow some simple commands and squeeze hand with R hand. No ataxic movements. PSYCHIATRIC: unable to assess <AUGUSTO Kulkarni Last Filed: 11/25/24 02:06> Course Course Emergency Course: Patient signed out to mn 02:30 on 11/25/24; pending transfer to [facility] for neuro and GI. His scheduled seizure medications have been ordered. No acute events overnight. <Anna Enriquez MD - Last Filed: 11/25/24 18:14> Patient signed out to [facility] 02:30 on 11/25/24; pending [facility]. His scheduled seizure medications have been ordered. No acute events overnight. JOHNNIE [id number] 11/25/24: Patient is still awaiting transfer to [facility]. He has been in the ED for 24 hours. He will be admitted to a transfer. <Misael Hobbs MD - Last Filed: 11/25/24 13:36> Vital Signs Vital signs: Vital Signs Temperature 98.1 F 11/24/24 13:15 Pulse Rate 124 H 11/24/24 13:15 Respiratory Rate 30 H 11/24/24 13:15 Blood Pressure 149/95 H 11/24/24 13:15 Pulse Oximetry 97 11/24/24 13:15 Temperature 97.8 F 11/25/24 12:36 Pulse Rate 88 11/25/24 13:31 Respiratory Rate 23 H 11/25/24 13:31 Blood Pressure 149/92 H 11/25/24 13:30 Pulse Oximetry 94 11/25/24 16:00 Oxygen Delivery High Flow Therapy with Trach Collar 11/25/24 16:00 Oxygen Flow Rate 30 11/25/24 16:00 Fraction of Inspired Oxygen 21 11/25/24 16:00 <Shakila Hernandez PA-C - Last Filed: 11/25/24 02:06> Vital Signs Temperature 98.1 F 11/24/24 13:15 Pulse Rate 124 H 11/24/24 13:15 Respiratory Rate 30 H 11/24/24 13:15 Blood Pressure 149/95 H 11/24/24 13:15 Pulse Oximetry 97 11/24/24 13:15 Temperature 97.8 F 11/25/24 12:36 Pulse Rate 88 11/25/24 13:31 Respiratory Rate 23 H 11/25/24 13:31 Blood Pressure 149/92 H 11/25/24 13:30 Pulse Oximetry 94 11/25/24 16:00 Oxygen Delivery High Flow Therapy with Trach Collar 11/25/24 16:00 Oxygen Flow Rate 30 11/25/24 16:00 Fraction of Inspired Oxygen 21 11/25/24 16:00 <Anna Enriquez MD - Last Filed: 11/25/24 18:14> Vital Signs Temperature 98.1 F 11/24/24 13:15 Pulse Rate 124 H 11/24/24 13:15 Respiratory Rate 30 H 11/24/24 13:15 Blood Pressure 149/95 H 11/24/24 13:15 Pulse Oximetry 97 11/24/24 13:15 Temperature 97.8 F 11/25/24 12:36 Pulse Rate 88 11/25/24 13:31 Respiratory Rate 23 H 11/25/24 13:31 Blood Pressure 149/92 H 11/25/24 13:30 Pulse Oximetry 94 11/25/24 16:00 Oxygen Delivery High Flow Therapy with Trach Collar 11/25/24 16:00 Oxygen Flow Rate 30 11/25/24 16:00 Fraction of Inspired Oxygen 21 11/25/24 16:00 <Misael Hobbs MD - Last Filed: 11/25/24 13:36> MDM - Seizure MDM Narrative Medical decision making narrative: Patient presented to ED from local skilled nursing facility with report of multiple seizures today. Complex past medical history. Does have history of seizures disorder. Patient tachycardic and tachypneic upon arrival. Oxygen stable on high-flow over his tracheostomy. Afebrile. Blood BP is stable. I was called to bedside due to patient having active seizure-like activity. He was having clonic spastic movements of his chest, upper arms, head/neck with gaze deviation to the right. Sister at bedside does report patient seem to be at his baseline and was able to answer some yes/no questions for her just prior to when the seizure began. She states he has had full tonic clonic and seizures like this before. The spastic chest/arm movements lasted less than 1 minute, but patient continued to have right-sided gaze deviation and some spastic movements of his mouth. Did not immediately return to baseline. Ativan 2 mg, Keppra 60 milligrams/kg, lacosamide, fluids ordered. Prior to medications being given, patient did have another brief episode of seizure-like activity. CT brain without acute findings. Chest x-ray with subsegmental consolidations versus atelectasis. Patient does have long history of aspiration and vomiting. There is concern over delayed gastric emptying and need for patient's G-tube to be switched to a GJ tube. Patient does follow with [facility] GI for this. With recent vomiting, there has been thought that patient is not receiving his full seizure medications. Additionally, it is unclear if [place] has been giving patient the lacosamide recently. Basic laboratory studies are otherwise fairly unremarkable. Mild leukocytosis of 10.2. Anemia consistent with previous records. Stable electrolytes. Stable kidney function. Glucose 122. Lactic acid 2.5. Magnesium within normal range. CK within normal range. EKG with sinus tachycardia, no significant ST changes. Baseline wander present. Initial troponin did result slightly elevated at 0.038. Will continue to trend. Patient mostly somnolent/sleeping after Ativan administration. I have not appreciate any further seizure-like activity throughout ED stay. Feel patient requires admission at this time for continued seizure monitoring, continuous EEG, medication management. Feel he would be best served at [facility] where he follows with neurology as well as GI. Discussed case with Dr. Lawrence, neurology @ [facility], accepted patient for transfer under his service. Awaiting bed placement. RG [id number]- Patient has been resting comfortably. No further seizure activity. Home seizure meds were ordered. Patient still awaiting bed at [facility]. Care signed out to Dr. Enriquez at shift change pending bed placement. <Shakila Hernandez PA-C - Last Filed: 11/25/24 02:06> Medical Records Attestation: I reviewed the patient's medical records. <Shakila Hernandez PA-C - Last Filed: 11/25/24 02:06> Lab Data Attestation: I reviewed the patient's lab results. <Shakila Hernandez PA-C - Last Filed: 11/25/24 02:06> Result diagrams: 11/25/24 12:50 11/25/24 13:06 <Shakila Hernandez PA-C - Last Filed: 11/25/24 02:06> Labs: Lab Results 11/24/24 11/24/24 11/24/24 Range/Units 15:12 15:12 15:12 WBC 10.2 H (4.5-10.0) K/mm3 RBC 4.08 L (4.6-6.20) M/mm3 Hgb 12.8 L (14.0-18.0) g/dL Hct 39.5 L (42.0-52.0) % MCV 96.8 (80-100) fl MCH 31.4 (26-34) pg MCHC 32.4 (32-36) g/dl RDW 13.1 (11.5-14.5) % Plt Count 232 (150-375) k/mm3 MPV 11.6 H (7.4-10.4) fl Immature Gran % (Auto) 0.5 (0-0.5) % Neut % (Auto) 76.9 H (45.5-73.1) % Lymph % (Auto) 15.1 L (18.3-44.2) % Collin % (Auto) 6.4 (2.6-8.5) % Eos % (Auto) 0.9 (0-4.4) % Baso % (Auto) 0.2 (0.2-1.2) % Lymph # (Auto) 1.54 (0.9-3.2) K/mm3 Collin # (Auto) 0.7 H (0.1-0.6) K/mm3 Eos # (Auto) 0.1 (0-0.3) K/mm3 Baso # (Auto) 0.0 (0.0-0.1) K/mm3 Abs Immat Gran (auto) 0.05 H (0.00-0.031) K/mm3 Absolute Neuts (auto) 7.8 H (1.3-6.7) K/mm3 Absolute Nucleated RBC 0.000 (0.0-0.012) K/mm3 Nucleated RBC % 0.0 (0.0-0.2) % PT 13.8 (11.1-14.7) Seconds INR 1.1 APTT 32.7 (22.3-36.8) Seconds Sodium 138 (137-145) mmol/L Potassium 3.4 (3.4-5.0) mmol/L Chloride 102 (98-107) mmol/L Carbon Dioxide 25 (22-30) mmol/L Anion Gap 11 (4-12) mmol/L BUN 10 (9-20) mg/dL Creatinine 0.48 L (0.7-1.3) mg/dL Estim Creat Clear Calc 122 ml/min Estimated GFR > 60 (59 - ) Glucose 122 H (65-110) mg/dL Lactic Acid 2.5 H (0.7-2.0) mmol/L Calcium 9.7 (8.4-10.2) mg/dL Magnesium 1.9 (1.6-2.3) mg/dL Total Bilirubin 0.4 (0.2-1.3) mg/dL AST 53 (17-59) U/L ALT 61 H (6-50) U/L Alkaline Phosphatase 103 (38-126) U/L Total Creatine Kinase 132 Cancelled (55-170) U/L Troponin I 0.038 H* Cancelled (0.000-0.034) ng/mL Total Protein 8.0 (6.3-8.2) g/dL Albumin 4.0 (3.5-5.1) g/dL Urine Color (Yellow) Urine Appearance (Clear) Urine pH (5.0-9.0) Ur Specific [place] (1.001-1.035) Urine Protein (Negative) mg/dL Urine Glucose (UA) (Negative) mg/dL Urine Ketones (Negative) mg/dL Ur Blood (Man) (Negative) Urine Nitrate (Negative) Urine Bilirubin (Negative) Urine Urobilinogen (<2.0) mg/dL Add Ur Microanalysis Leukocyte Esterase Rfl (Negative) NOEL/UL Urine RBC (0-2) /hpf Urine WBC (0-3) /hpf Ur Squamous Epith Cells (Few) /hpf Urine Bacteria /hpf Urine Casts Urine Mucus /lpf 11/24/24 11/25/24 11/25/24 Range/Units 22:08 06:44 12:49 WBC (4.5-10.0) K/mm3 RBC (4.6-6.20) M/mm3 Hgb (14.0-18.0) g/dL Hct (42.0-52.0) % MCV (80-100) fl MCH (26-34) pg MCHC (32-36) g/dl RDW (11.5-14.5) % Plt Count (150-375) k/mm3 MPV (7.4-10.4) fl Immature Gran % (Auto) (0-0.5) % Neut % (Auto) (45.5-73.1) % Lymph % (Auto) (18.3-44.2) % Collin % (Auto) (2.6-8.5) % Eos % (Auto) (0-4.4) % Baso % (Auto) (0.2-1.2) % Lymph # (Auto) (0.9-3.2) K/mm3 [place]lin # (Auto) (0.1-0.6) K/mm3 Eos # (Auto) (0-0.3) K/mm3 Baso # (Auto) (0.0-0.1) K/mm3 Abs Immat Gran (auto) (0.00-0.031) K/mm3 Absolute Neuts (auto) (1.3-6.7) K/mm3 Absolute Nucleated RBC (0.0-0.012) K/mm3 Nucleated RBC % (0.0-0.2) % PT (11.1-14.7) Seconds INR APTT (22.3-36.8) Seconds Sodium (137-145) mmol/L Potassium (3.4-5.0) mmol/L Chloride (98-107) mmol/L Carbon Dioxide (22-30) mmol/L Anion Gap (4-12) mmol/L BUN (9-20) mg/dL Creatinine (0.7-1.3) mg/dL Estim Creat Clear Calc ml/min Estimated GFR (59 - ) Glucose (65-110) mg/dL Lactic Acid 1.2 (0.7-2.0) mmol/L Calcium (8.4-10.2) mg/dL Magnesium (1.6-2.3) mg/dL Total Bilirubin (0.2-1.3) mg/dL AST (17-59) U/L ALT (6-50) U/L Alkaline Phosphatase (38-126) U/L Total Creatine Kinase (55-170) U/L Troponin I 0.044 H* < 0.012 (0.000-0.034) ng/mL Total Protein (6.3-8.2) g/dL Albumin (3.5-5.1) g/dL Urine Color Yellow (Yellow) Urine Appearance Cloudy H (Clear) Urine pH 7.0 (5.0-9.0) Ur Specific [place] 1.020 (1.001-1.035) Urine Protein 1+ H (Negative) mg/dL Urine Glucose (UA) Negative (Negative) mg/dL Urine Ketones Negative (Negative) mg/dL Ur Blood (Man) Negative (Negative) Urine Nitrate Negative (Negative) Urine Bilirubin Negative (Negative) Urine Urobilinogen 1.0 (<2.0) mg/dL Add Ur Microanalysis Reviewed Leukocyte Esterase Rfl Trace H (Negative) NOEL/UL Urine RBC 0-2 (0-2) /hpf Urine WBC 0-5 (0-3) /hpf Ur Squamous Epith Cells None seen (Few) /hpf Urine Bacteria None seen /hpf Urine Casts 0-2 Urine Mucus Present /lpf 11/25/24 11/25/24 Range/Units 12:50 13:06 WBC 7.2 (4.5-10.0) K/mm3 RBC 3.50 L (4.6-6.20) M/mm3 Hgb 11.5 L (14.0-18.0) g/dL Hct 33.7 L (42.0-52.0) % MCV 96.3 (80-100) fl MCH 32.9 (26-34) pg MCHC 34.1 (32-36) g/dl RDW 13.2 (11.5-14.5) % Plt Count 252 (150-375) k/mm3 MPV 11.6 H (7.4-10.4) fl Immature Gran % (Auto) 0.3 (0-0.5) % Neut % (Auto) 51.0 (45.5-73.1) % Lymph % (Auto) 37.6 (18.3-44.2) % [place]lin % (Auto) 8.0 (2.6-8.5) % Eos % (Auto) 2.8 (0-4.4) % Baso % (Auto) 0.3 (0.2-1.2) % Lymph # (Auto) 2.71 (0.9-3.2) K/mm3 [place] # (Auto) 0.6 (0.1-0.6) K/mm3 Eos # (Auto) 0.2 (0-0.3) K/mm3 Baso # (Auto) 0.0 (0.0-0.1) K/mm3 Abs Immat Gran (auto) 0.02 (0.00-0.031) K/mm3 Absolute Neuts (auto) 3.7 (1.3-6.7) K/mm3 Absolute Nucleated RBC 0.000 (0.0-0.012) K/mm3 Nucleated RBC % 0.0 (0.0-0.2) % PT (11.1-14.7) Seconds INR APTT (22.3-36.8) Seconds Sodium 139 (137-145) mmol/L Potassium 3.7 (3.4-5.0) mmol/L Chloride 108 H (98-107) mmol/L Carbon Dioxide 24 (22-30) mmol/L Anion Gap 7 (4-12) mmol/L BUN 9 (9-20) mg/dL Creatinine 0.50 L (0.7-1.3) mg/dL Estim Creat Clear Calc 118 ml/min Estimated GFR > 60 (59 - ) Glucose 100 (65-110) mg/dL Lactic Acid (0.7-2.0) mmol/L Calcium 9.5 (8.4-10.2) mg/dL Magnesium 1.8 (1.6-2.3) mg/dL Total Bilirubin 0.6 (0.2-1.3) mg/dL AST 45 (17-59) U/L ALT 49 (6-50) U/L Alkaline Phosphatase 83 (38-126) U/L Total Creatine Kinase (55-170) U/L Troponin I (0.000-0.034) ng/mL Total Protein 7.0 (6.3-8.2) g/dL Albumin 3.5 (3.5-5.1) g/dL Urine Color (Yellow) Urine Appearance (Clear) Urine pH (5.0-9.0) Ur Specific [place] (1.001-1.035) Urine Protein (Negative) mg/dL Urine Glucose (UA) (Negative) mg/dL Urine Ketones (Negative) mg/dL Ur Blood (Man) (Negative) Urine Nitrate (Negative) Urine Bilirubin (Negative) Urine Urobilinogen (<2.0) mg/dL Add Ur Microanalysis Leukocyte Esterase Rfl (Negative) NOEL/UL Urine RBC (0-2) /hpf Urine WBC (0-3) /hpf Ur Squamous Epith Cells (Few) /hpf Urine Bacteria /hpf Urine Casts Urine Mucus /lpf <Shakila Hernandez PA-C - Last Filed: 11/25/24 02:06> Lab Results 11/24/24 11/24/24 11/24/24 Range/Units 15:12 15:12 15:12 WBC 10.2 H (4.5-10.0) K/mm3 RBC 4.08 L (4.6-6.20) M/mm3 Hgb 12.8 L (14.0-18.0) g/dL Hct 39.5 L (42.0-52.0) % MCV 96.8 (80-100) fl MCH 31.4 (26-34) pg MCHC 32.4 (32-36) g/dl RDW 13.1 (11.5-14.5) % Plt Count 232 (150-375) k/mm3 MPV 11.6 H (7.4-10.4) fl Immature Gran % (Auto) 0.5 (0-0.5) % Neut % (Auto) 76.9 H (45.5-73.1) % Lymph % (Auto) 15.1 L (18.3-44.2) % [place] % (Auto) 6.4 (2.6-8.5) % Eos % (Auto) 0.9 (0-4.4) % Baso % (Auto) 0.2 (0.2-1.2) % Lymph # (Auto) 1.54 (0.9-3.2) K/mm3 [place] # (Auto) 0.7 H (0.1-0.6) K/mm3 Eos # (Auto) 0.1 (0-0.3) K/mm3 Baso # (Auto) 0.0 (0.0-0.1) K/mm3 Abs Immat Gran (auto) 0.05 H (0.00-0.031) K/mm3 Absolute Neuts (auto) 7.8 H (1.3-6.7) K/mm3 Absolute Nucleated RBC 0.000 (0.0-0.012) K/mm3 Nucleated RBC % 0.0 (0.0-0.2) % PT 13.8 (11.1-14.7) Seconds INR 1.1 APTT 32.7 (22.3-36.8) Seconds Sodium 138 (137-145) mmol/L Potassium 3.4 (3.4-5.0) mmol/L Chloride 102 (98-107) mmol/L Carbon Dioxide 25 (22-30) mmol/L Anion Gap 11 (4-12) mmol/L BUN 10 (9-20) mg/dL Creatinine 0.48 L (0.7-1.3) mg/dL Estim Creat Clear Calc 122 ml/min Estimated GFR > 60 (59 - ) Glucose 122 H (65-110) mg/dL Lactic Acid 2.5 H (0.7-2.0) mmol/L Calcium 9.7 (8.4-10.2) mg/dL Magnesium 1.9 (1.6-2.3) mg/dL Total Bilirubin 0.4 (0.2-1.3) mg/dL AST 53 (17-59) U/L ALT 61 H (6-50) U/L Alkaline Phosphatase 103 (38-126) U/L Total Creatine Kinase 132 Cancelled (55-170) U/L Troponin I 0.038 H* Cancelled (0.000-0.034) ng/mL Total Protein 8.0 (6.3-8.2) g/dL Albumin 4.0 (3.5-5.1) g/dL Urine Color (Yellow) Urine Appearance (Clear) Urine pH (5.0-9.0) Ur Specific [place] (1.001-1.035) Urine Protein (Negative) mg/dL Urine Glucose (UA) (Negative) mg/dL Urine Ketones (Negative) mg/dL Ur Blood (Man) (Negative) Urine Nitrate (Negative) Urine Bilirubin (Negative) Urine Urobilinogen (<2.0) mg/dL Add Ur Microanalysis Leukocyte Esterase Rfl (Negative) NOEL/UL Urine RBC (0-2) /hpf Urine WBC (0-3) /hpf Ur Squamous Epith Cells (Few) /hpf Urine Bacteria /hpf Urine Casts Urine Mucus /lpf 11/24/24 11/25/24 11/25/24 Range/Units 22:08 06:44 12:49 WBC (4.5-10.0) K/mm3 RBC (4.6-6.20) M/mm3 Hgb (14.0-18.0) g/dL Hct (42.0-52.0) % MCV (80-100) fl MCH (26-34) pg MCHC (32-36) g/dl RDW (11.5-14.5) % Plt Count (150-375) k/mm3 MPV (7.4-10.4) fl Immature Gran % (Auto) (0-0.5) % Neut % (Auto) (45.5-73.1) % Lymph % (Auto) (18.3-44.2) % [place] % (Auto) (2.6-8.5) % Eos % (Auto) (0-4.4) % Baso % (Auto) (0.2-1.2) % Lymph # (Auto) (0.9-3.2) K/mm3 [place] # (Auto) (0.1-0.6) K/mm3 Eos # (Auto) (0-0.3) K/mm3 Baso # (Auto) (0.0-0.1) K/mm3 Abs Immat Gran (auto) (0.00-0.031) K/mm3 Absolute Neuts (auto) (1.3-6.7) K/mm3 Absolute Nucleated RBC (0.0-0.012) K/mm3 Nucleated RBC % (0.0-0.2) % PT (11.1-14.7) Seconds INR APTT (22.3-36.8) Seconds Sodium (137-145) mmol/L Potassium (3.4-5.0) mmol/L Chloride (98-107) mmol/L Carbon Dioxide (22-30) mmol/L Anion Gap (4-12) mmol/L BUN (9-20) mg/dL Creatinine (0.7-1.3) mg/dL Estim Creat Clear Calc ml/min Estimated GFR (59 - ) Glucose (65-110) mg/dL Lactic Acid 1.2 (0.7-2.0) mmol/L Calcium (8.4-10.2) mg/dL Magnesium (1.6-2.3) mg/dL Total Bilirubin (0.2-1.3) mg/dL AST (17-59) U/L ALT (6-50) U/L Alkaline Phosphatase (38-126) U/L Total Creatine Kinase (55-170) U/L Troponin I 0.044 H* < 0.012 (0.000-0.034) ng/mL Total Protein (6.3-8.2) g/dL Albumin (3.5-5.1) g/dL Urine Color Yellow (Yellow) Urine Appearance Cloudy H (Clear) Urine pH 7.0 (5.0-9.0) Ur Specific [place] 1.020 (1.001-1.035) Urine Protein 1+ H (Negative) mg/dL Urine Glucose (UA) Negative (Negative) mg/dL Urine Ketones Negative (Negative) mg/dL Ur Blood (Man) Negative (Negative) Urine Nitrate Negative (Negative) Urine Bilirubin Negative (Negative) Urine Urobilinogen 1.0 (<2.0) mg/dL Add Ur Microanalysis Reviewed Leukocyte Esterase Rfl Trace H (Negative) NOEL/UL Urine RBC 0-2 (0-2) /hpf Urine WBC 0-5 (0-3) /hpf Ur Squamous Epith Cells None seen (Few) /hpf Urine Bacteria None seen /hpf Urine Casts 0-2 Urine Mucus Present /lpf 11/25/24 11/25/24 Range/Units 12:50 13:06 WBC 7.2 (4.5-10.0) K/mm3 RBC 3.50 L (4.6-6.20) M/mm3 Hgb 11.5 L (14.0-18.0) g/dL Hct 33.7 L (42.0-52.0) % MCV 96.3 (80-100) fl MCH 32.9 (26-34) pg MCHC 34.1 (32-36) g/dl RDW 13.2 (11.5-14.5) % Plt Count 252 (150-375) k/mm3 MPV 11.6 H (7.4-10.4) fl Immature Gran % (Auto) 0.3 (0-0.5) % Neut % (Auto) 51.0 (45.5-73.1) % Lymph % (Auto) 37.6 (18.3-44.2) % [place] % (Auto) 8.0 (2.6-8.5) % Eos % (Auto) 2.8 (0-4.4) % Baso % (Auto) 0.3 (0.2-1.2) % Lymph # (Auto) 2.71 (0.9-3.2) K/mm3 [place] # (Auto) 0.6 (0.1-0.6) K/mm3 Eos # (Auto) 0.2 (0-0.3) K/mm3 Baso # (Auto) 0.0 (0.0-0.1) K/mm3 Abs Immat Gran (auto) 0.02 (0.00-0.031) K/mm3 Absolute Neuts (auto) 3.7 (1.3-6.7) K/mm3 Absolute Nucleated RBC 0.000 (0.0-0.012) K/mm3 Nucleated RBC % 0.0 (0.0-0.2) % PT (11.1-14.7) Seconds INR APTT (22.3-36.8) Seconds Sodium 139 (137-145) mmol/L Potassium 3.7 (3.4-5.0) mmol/L Chloride 108 H (98-107) mmol/L Carbon Dioxide 24 (22-30) mmol/L Anion Gap 7 (4-12) mmol/L BUN 9 (9-20) mg/dL Creatinine 0.50 L (0.7-1.3) mg/dL Estim Creat Clear Calc 118 ml/min Estimated GFR > 60 (59 - ) Glucose 100 (65-110) mg/dL Lactic Acid (0.7-2.0) mmol/L Calcium 9.5 (8.4-10.2) mg/dL Magnesium 1.8 (1.6-2.3) mg/dL Total Bilirubin 0.6 (0.2-1.3) mg/dL AST 45 (17-59) U/L ALT 49 (6-50) U/L Alkaline Phosphatase 83 (38-126) U/L Total Creatine Kinase (55-170) U/L Troponin I (0.000-0.034) ng/mL Total Protein 7.0 (6.3-8.2) g/dL Albumin 3.5 (3.5-5.1) g/dL Urine Color (Yellow) Urine Appearance (Clear) Urine pH (5.0-9.0) Ur Specific [place] (1.001-1.035) Urine Protein (Negative) mg/dL Urine Glucose (UA) (Negative) mg/dL Urine Ketones (Negative) mg/dL Ur Blood (Man) (Negative) Urine Nitrate (Negative) Urine Bilirubin (Negative) Urine Urobilinogen (<2.0) mg/dL Add Ur Microanalysis Leukocyte Esterase Rfl (Negative) NOEL/UL Urine RBC (0-2) /hpf Urine WBC (0-3) /hpf Ur Squamous Epith Cells (Few) /hpf Urine Bacteria /hpf Urine Casts Urine Mucus /lpf <Anna Enriquez MD - Last Filed: 11/25/24 18:14> Lab Results 11/24/24 11/24/24 11/24/24 Range/Units 15:12 15:12 15:12 WBC 10.2 H (4.5-10.0) K/mm3 RBC 4.08 L (4.6-6.20) M/mm3 Hgb 12.8 L (14.0-18.0) g/dL Hct 39.5 L (42.0-52.0) % MCV 96.8 (80-100) fl MCH 31.4 (26-34) pg MCHC 32.4 (32-36) g/dl RDW 13.1 (11.5-14.5) % Plt Count 232 (150-375) k/mm3 MPV 11.6 H (7.4-10.4) fl Immature Gran % (Auto) 0.5 (0-0.5) % Neut % (Auto) 76.9 H (45.5-73.1) % Lymph % (Auto) 15.1 L (18.3-44.2) % [place]lin % (Auto) 6.4 (2.6-8.5) % Eos % (Auto) 0.9 (0-4.4) % Baso % (Auto) 0.2 (0.2-1.2) % Lymph # (Auto) 1.54 (0.9-3.2) K/mm3 [place]lin # (Auto) 0.7 H (0.1-0.6) K/mm3 Eos # (Auto) 0.1 (0-0.3) K/mm3 Baso # (Auto) 0.0 (0.0-0.1) K/mm3 Abs Immat Gran (auto) 0.05 H (0.00-0.031) K/mm3 Absolute Neuts (auto) 7.8 H (1.3-6.7) K/mm3 Absolute Nucleated RBC 0.000 (0.0-0.012) K/mm3 Nucleated RBC % 0.0 (0.0-0.2) % PT 13.8 (11.1-14.7) Seconds INR 1.1 APTT 32.7 (22.3-36.8) Seconds Sodium 138 (137-145) mmol/L Potassium 3.4 (3.4-5.0) mmol/L Chloride 102 (98-107) mmol/L Carbon Dioxide 25 (22-30) mmol/L Anion Gap 11 (4-12) mmol/L BUN 10 (9-20) mg/dL Creatinine 0.48 L (0.7-1.3) mg/dL Estim Creat Clear Calc 122 ml/min Estimated GFR > 60 (59 - ) Glucose 122 H (65-110) mg/dL Lactic Acid 2.5 H (0.7-2.0) mmol/L Calcium 9.7 (8.4-10.2) mg/dL Magnesium 1.9 (1.6-2.3) mg/dL Total Bilirubin 0.4 (0.2-1.3) mg/dL AST 53 (17-59) U/L ALT 61 H (6-50) U/L Alkaline Phosphatase 103 (38-126) U/L Total Creatine Kinase 132 Cancelled (55-170) U/L Troponin I 0.038 H* Cancelled (0.000-0.034) ng/mL Total Protein 8.0 (6.3-8.2) g/dL Albumin 4.0 (3.5-5.1) g/dL Urine Color (Yellow) Urine Appearance (Clear) Urine pH (5.0-9.0) Ur Specific [place] (1.001-1.035) Urine Protein (Negative) mg/dL Urine Glucose (UA) (Negative) mg/dL Urine Ketones (Negative) mg/dL Ur Blood (Man) (Negative) Urine Nitrate (Negative) Urine Bilirubin (Negative) Urine Urobilinogen (<2.0) mg/dL Add Ur Microanalysis Leukocyte Esterase Rfl (Negative) NOEL/UL Urine RBC (0-2) /hpf Urine WBC (0-3) /hpf Ur Squamous Epith Cells (Few) /hpf Urine Bacteria /hpf Urine Casts Urine Mucus /lpf 11/24/24 11/25/24 11/25/24 Range/Units 22:08 06:44 12:49 WBC (4.5-10.0) K/mm3 RBC (4.6-6.20) M/mm3 Hgb (14.0-18.0) g/dL Hct (42.0-52.0) % MCV (80-100) fl MCH (26-34) pg MCHC (32-36) g/dl RDW (11.5-14.5) % Plt Count (150-375) k/mm3 MPV (7.4-10.4) fl Immature Gran % (Auto) (0-0.5) % Neut % (Auto) (45.5-73.1) % Lymph % (Auto) (18.3-44.2) % [place]lin % (Auto) (2.6-8.5) % Eos % (Auto) (0-4.4) % Baso % (Auto) (0.2-1.2) % Lymph # (Auto) (0.9-3.2) K/mm3 [place] # (Auto) (0.1-0.6) K/mm3 Eos # (Auto) (0-0.3) K/mm3 Baso # (Auto) (0.0-0.1) K/mm3 Abs Immat Gran (auto) (0.00-0.031) K/mm3 Absolute Neuts (auto) (1.3-6.7) K/mm3 Absolute Nucleated RBC (0.0-0.012) K/mm3 Nucleated RBC % (0.0-0.2) % PT (11.1-14.7) Seconds INR APTT (22.3-36.8) Seconds Sodium (137-145) mmol/L Potassium (3.4-5.0) mmol/L Chloride (98-107) mmol/L Carbon Dioxide (22-30) mmol/L Anion Gap (4-12) mmol/L BUN (9-20) mg/dL Creatinine (0.7-1.3) mg/dL Estim Creat Clear Calc ml/min Estimated GFR (59 - ) Glucose (65-110) mg/dL Lactic Acid 1.2 (0.7-2.0) mmol/L Calcium (8.4-10.2) mg/dL Magnesium (1.6-2.3) mg/dL Total Bilirubin (0.2-1.3) mg/dL AST (17-59) U/L ALT (6-50) U/L Alkaline Phosphatase (38-126) U/L Total Creatine Kinase (55-170) U/L Troponin I 0.044 H* < 0.012 (0.000-0.034) ng/mL Total Protein (6.3-8.2) g/dL Albumin (3.5-5.1) g/dL Urine Color Yellow (Yellow) Urine Appearance Cloudy H (Clear) Urine pH 7.0 (5.0-9.0) Ur Specific [place] 1.020 (1.001-1.035) Urine Protein 1+ H (Negative) mg/dL Urine Glucose (UA) Negative (Negative) mg/dL Urine Ketones Negative (Negative) mg/dL Ur Blood (Man) Negative (Negative) Urine Nitrate Negative (Negative) Urine Bilirubin Negative (Negative) Urine Urobilinogen 1.0 (<2.0) mg/dL Add Ur Microanalysis Reviewed Leukocyte Esterase Rfl Trace H (Negative) NOEL/UL Urine RBC 0-2 (0-2) /hpf Urine WBC 0-5 (0-3) /hpf Ur Squamous Epith Cells None seen (Few) /hpf Urine Bacteria None seen /hpf Urine Casts 0-2 Urine Mucus Present /lpf 11/25/24 11/25/24 Range/Units 12:50 13:06 WBC 7.2 (4.5-10.0) K/mm3 RBC 3.50 L (4.6-6.20) M/mm3 Hgb 11.5 L (14.0-18.0) g/dL Hct 33.7 L (42.0-52.0) % MCV 96.3 (80-100) fl MCH 32.9 (26-34) pg MCHC 34.1 (32-36) g/dl RDW 13.2 (11.5-14.5) % Plt Count 252 (150-375) k/mm3 MPV 11.6 H (7.4-10.4) fl Immature Gran % (Auto) 0.3 (0-0.5) % Neut % (Auto) 51.0 (45.5-73.1) % Lymph % (Auto) 37.6 (18.3-44.2) % [place] % (Auto) 8.0 (2.6-8.5) % Eos % (Auto) 2.8 (0-4.4) % Baso % (Auto) 0.3 (0.2-1.2) % Lymph # (Auto) 2.71 (0.9-3.2) K/mm3 [place] # (Auto) 0.6 (0.1-0.6) K/mm3 Eos # (Auto) 0.2 (0-0.3) K/mm3 Baso # (Auto) 0.0 (0.0-0.1) K/mm3 Abs Immat Gran (auto) 0.02 (0.00-0.031) K/mm3 Absolute Neuts (auto) 3.7 (1.3-6.7) K/mm3 Absolute Nucleated RBC 0.000 (0.0-0.012) K/mm3 Nucleated RBC % 0.0 (0.0-0.2) % PT (11.1-14.7) Seconds INR APTT (22.3-36.8) Seconds Sodium 139 (137-145) mmol/L Potassium 3.7 (3.4-5.0) mmol/L Chloride 108 H (98-107) mmol/L Carbon Dioxide 24 (22-30) mmol/L Anion Gap 7 (4-12) mmol/L BUN 9 (9-20) mg/dL Creatinine 0.50 L (0.7-1.3) mg/dL Estim Creat Clear Calc 118 ml/min Estimated GFR > 60 (59 - ) Glucose 100 (65-110) mg/dL Lactic Acid (0.7-2.0) mmol/L Calcium 9.5 (8.4-10.2) mg/dL Magnesium 1.8 (1.6-2.3) mg/dL Total Bilirubin 0.6 (0.2-1.3) mg/dL AST 45 (17-59) U/L ALT 49 (6-50) U/L Alkaline Phosphatase 83 (38-126) U/L Total Creatine Kinase (55-170) U/L Troponin I (0.000-0.034) ng/mL Total Protein 7.0 (6.3-8.2) g/dL Albumin 3.5 (3.5-5.1) g/dL Urine Color (Yellow) Urine Appearance (Clear) Urine pH (5.0-9.0) Ur Specific [place] (1.001-1.035) Urine Protein (Negative) mg/dL Urine Glucose (UA) (Negative) mg/dL Urine Ketones (Negative) mg/dL Ur Blood (Man) (Negative) Urine Nitrate (Negative) Urine Bilirubin (Negative) Urine Urobilinogen (<2.0) mg/dL Add Ur Microanalysis Leukocyte Esterase Rfl (Negative) NOEL/UL Urine RBC (0-2) /hpf Urine WBC (0-3) /hpf Ur Squamous Epith Cells (Few) /hpf Urine Bacteria /hpf Urine Casts Urine Mucus /lpf <Misael Hobbs MD - Last Filed: 11/25/24 13:36> Imaging Data Attestation: I personally reviewed and interpreted this imaging study as follows: < Shakila Hernandez PA-C - Last Filed: 11/25/24 02:06> Radiologist's impression: ITS Impressions Head CT 11/24/24 15:09 IMPRESSION: No acute intracranial process. Possible acute right sphenoid sinusitis. Chronic right maxillary sinusitis. Chest X-Ray 11/24/24 15:52 IMPRESSION: Subsegmental bibasilar atelectasis/consolidation. <Shakila Hernandez PA-C - Last Filed: 11/25/24 02:06> ECG Data EKG #1: Attestation: I personally reviewed and interpreted this ECG as follows: <AUGUSTO Kulkarni Last Filed: 11/25/24 02:06> ECG completion date: 11/24/24 <Shakila Hernandez PA-C - Last Filed: 11/25/24 02:06> Discharge Plan Discharge Clinical Impression: Recurrent seizures, Gastrostomy tube dependent, Tracheostomy dependence, Elevated troponin <AUGUSTO Kulkarni Last Filed: 11/25/24 02:06> Patient Disposition: Acute Care Hospital <Shakila Hernandez PA-C - Last Filed: 11/25/24 02:06> Condition: Stable <Shakila Hernandez PA-C - Last Filed: 11/25/24 02:06>
[2024-11-24 16:08] LABS: Creatine Kinase 132 U/L (55-170)
[2024-11-24 16:24] LABS: Troponin I 0.038 ng/mL (0.000-0.034)
[2024-11-24 17:21] LABS: Reflex Lactic Acid Yes or No Add Lactic
--- NOTE | 2024-11-24 21:00 | PC.NURSE ---
This RN, KEILY Fischer, and Phlebotomy have all tried multiple times to obtain blood samples. EDP made aware.
[2024-11-24 22:24] LABS: Lactic Acid 1.2 mmol/L (0.7-2.0)
[2024-11-24 22:40] LABS: Troponin I 0.044 ng/mL (0.000-0.034)
[2024-11-25] VITALS (36 sets, daily range): BP systolic 100–155; BP diastolic 55–98; PULSE 80–110; RESP 16–26; TEMP 36.6–36.8; O2SAT 94–100; BMI 26.6
[2024-11-25] MEDS: levETIRAcetam ORAL SOL 500 MG/5 ML UDC 2000 MG FEED TUBE ×2 (01:37→17:40)
[2024-11-25] MEDS: LACOSAMIDE (*CRX) 50 MG TABLET 250 MG FEED TUBE ×2 (01:41→17:40)
[2024-11-25 07:26] LABS: Add Urine Microscopic? YES; Appearance Urine Cloudy (Clear); Bacteria Urine None Seen /hpf; Bilirubin Urine Negative (Negative); Blood Urine Negative (Negative); Color Urine Yellow (Yellow); Glucose Urine UA Negative (Negative); Ketones Urine Negative (Negative); Leukocyte Esterase Ur Trace LEU/UL (Negative); Mucus Urine Present /lpf; Need Manual Microscopic Reviewed; Nitrate Urine Negative (Negative); Non Pathogenic Casts 0-2; Protein Urine 1+ mg/dL (Negative); RBC Urine 0-2 /hpf (0-2); Squamous Epithelial Cell Urine None Seen /hpf (Few); WBC Urine 0-5 /hpf (0-3)
[2024-11-25 12:57] LABS: Basophils Percent Auto 0.3 % (0.2-1.2); Eosinophils Absolute Auto 0.2 K/mm3 (0-0.3); Eosinophils Percent Auto 2.8 % (0-4.4); Hematocrit 33.7 % (42.0-52.0); Hemoglobin 11.5 g/dL (14.0-18.0); Immature Granulocyte Absolute 0.02 K/mm3 (0.00-0.031); Immature Granulocyte Percent A 0.3 % (0-0.5); Lymphocytes Absolute Auto 2.71 K/mm3 (0.9-3.2); Lymphocytes Percent Auto 37.6 % (18.3-44.2); Mean Corpuscular HGB Conc 34.1 g/dl (32-36); Mean Corpuscular Hemoglobin 32.9 pg (26-34); Mean Corpuscular Volume 96.3 fl (80-100); Mean Platelet Volume 11.6 fl (7.4-10.4); Monocytes Absolute Auto 0.6 K/mm3 (0.1-0.6); Neutrophils Absolute Auto 3.7 K/mm3 (1.3-6.7); Platelet Count Result 252 k/mm3 (150-375); Red Cell Distribution Width 13.2 % (11.5-14.5); White Blood Count 7.2 K/mm3 (4.5-10.0)
[2024-11-25 13:23] LABS: Alanine Aminotransferase 49 U/L (6-50); Albumin Level 3.5 g/dL (3.5-5.1); Alkaline Phosphatase 83 U/L (38-126); Anion Gap 7 mmol/L (4-12); Aspartate Amino Transferase 45 U/L (17-59); Bilirubin,Total 0.6 mg/dL (0.2-1.3); Blood Urea Nitrogen 9 mg/dL (9-20); Calcium 9.5 mg/dL (8.4-10.2); Carbon Dioxide 24 mmol/L (22-30); Chloride 108 mmol/L (98-107); Estimated CRCL calculation 118 ml/min; Estimated Glomerular Filt Rate > 60; Glucose 100 mg/dL (65-110); Magnesium 1.8 mg/dL (1.6-2.3); Potassium 3.7 mmol/L (3.4-5.0); Sodium 139 mmol/L (137-145)
[2024-11-25 13:25] LABS: Troponin I < 0.012 ng/mL (0.000-0.034)
--- NOTE | 2024-11-25 13:31 | P.HP_ITS ---
H&P: HPI History of Present Illness Date/Time: 11/25/24 13:31 Chief Complaint: Seizures Narrative: This is a 64-year-old male patient with a past medical history of CVA and seizures is admitted to hospital due to recurrent seizures as well as recurrent G-tube dysfunction. Patient was seen in the emergency department on 11/23 due to vomiting and retention of high residual from G-tube. G-tube was noted to be in properly position and was repositioned ER staff and patient was transported back to nursing facility. However, he missed his anti epileptic medications in this process and yesterday on 11/24 he had recurrent seizures so he was sent back to the emergency department. Patient's condition is quite challenging since he has tracheostomy G-tube is generally non communicative and remains a full code. He was treated with IV Keppra and IV fluids, later adding per tube Keppra and lacosamide. Transfer was pursued to [facility] for complex seizures and to have evaluation for G-J tube placement due to recurrent problems with high residuals, vomiting and missing doses of anti- epileptic medications. Patient was accepted in transfer and is awaiting a bed assignment. He has been in the ER for over 24 hours so we are being asked to admit patient to Med/Surg pending transfer bed availability. Patient is awake and appears at his baseline mental status. Labs were stable except mildly elevated troponin on 11/24. This was rechecked today and is back to baseline < 0.012. Tube feeding currently on hold. Will consult burial needs salesperson. Review of Systems Review of Systems: ROS unobtainable: Yes unobtainable due to endotracheal tube (tracheostomy and baseline non-verbal due to prior stroke) and unobtainable due to medical condition [facility] Past Medical History Medical History Acute lactic acidosis History of multiple strokes Residual expressive aphasia, dysphagia, and left-sided weakness. Esophagitis Anemia Aspiration pneumonia Elevated LFTs Atrial fibrillation with rapid ventricular response Thrombocytopenia Rash of face Lung collapse Right Mucus plugging of bronchi Increased tracheal secretions Epilepsy Intractable seizure disorder Status epilepticus Severe sepsis Tracheitis Sepsis with acute hypoxic respiratory failure Acute kidney injury UTI (urinary tract infection) Acute pancreatitis Diarrhea Cholecystitis Pancreatitis 09/2024 Deep venous thrombosis of upper extremity Benign prostatic hyperplasia Esophageal diverticulum Gastroparesis Iron deficiency anemia Vascular dementia with psychotic disturbance Surgical History Surgical History History of gastrostomy tube placement (07/09/23) History of tracheostomy History of left above knee amputation Family History Family History Other Unknown family medical history Social History Social History Social History: Surrogate medical decision maker: Adriane Hilliard, sibling. Code status: Full code. 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 Additional gender identity comments: Never Spiritual care concerns: No Meds Home Medications and Allergies Home Medications ?Medication ?Instructions ?Recorded ?Confirmed ?Type metoprolol tartrate 25 mg tablet 25 mg feeding tube BID 12/18/22 11/25/24 Histor y polyethylene glycol 3350 17 17 g feeding tube DAILY PRN 12/18/22 11/25/24 History gram/dose oral powder Constipation bisacodyl 10 mg rectal suppository 10 mg RECTAL DAILY PRN Constipation 02/11/23 11/25/24 History sennosides 8.6 mg tablet (senna) 8.6 mg feeding tube BID 02/11/23 11/25/24 History guaifenesin 100 mg/5 mL oral liquid 300 mg feeding tube Q12H PRN Cough 07/08/23 11/25/24 History magnesium hydroxide 400 mg/5 mL 30 ml feeding tube HS PRN 12/13/23 11/25/24 History oral suspension (Milk of Magnesia) Constipation atorvastatin 40 mg tablet 40 mg feeding tube HS 02/10/24 11/25/24 History calcium carbonate 500 mg/5 mL (as 1,250 mg feeding tube Q6H PRN 02/10/24 11/25/24 History calcium carb 1,250 mg/5 mL) oral Heartburn suspension folic acid 1 mg tablet 1 mg feeding tube DAILY 02/10/24 11/25/24 History ipratropium 0.5 mg-albuterol 3 mg 3 ml inhalation Q6H PRN Shortness 02/10/24 11/25/24 History (2.5 mg base)/3 mL nebulization Of Breath soln magnesium citrate (Citroma oral 296 ml feeding tube DAILY PRN 02/10/24 11/25/24 History solution) Constipation thiamine HCl (vitamin B1) 100 mg 100 mg feeding tube DAILY 02/10/24 11/25/24 History tablet acetaminophen 650 mg/20.3 mL oral 650 mg feeding tube Q4H PRN Pain 03/30/24 11/25/24 History suspension (Scale Score 1-3) aspirin 81 mg chewable tablet 81 mg feeding tube DAILY 03/30/24 11/25/24 History finasteride 5 mg tablet 5 mg feeding tube DAILY 10/18/24 11/25/24 History glycopyrrolate 2 mg tablet 2 mg feeding tube Q8H 10/18/24 11/25/24 History metoclopramide HCl 10 mg tablet 10 mg feeding tube Q6H PRN nausea 10/18/24 11/25/24 History and vomiting ondansetron HCl 4 mg tablet 4 mg feeding tube Q6H PRN nausea 10/18/24 11/25/24 History and vomiting pantoprazole 40 mg tablet,delayed 40 mg PO Q12H 10/18/24 11/25/24 History release amlodipine 5 mg tablet (Norvasc) 5 mg feeding tube DAILY 30 days 10/29/24 11/25/24 Rx #30 tabs isosorbide dinitrate 5 mg tablet 5 mg feeding tube TID 30 days #90 10/29/24 11/25/24 Rx tabs lacosamide 10 mg/mL oral solution 250 mg (25 mL) feeding tube BID 30 10/29/24 11/25/24 Rx days #200 mL levetiracetam 100 mg/mL oral 2,000 mg (20 mL) feeding tube BID 10/29/24 11/25/24 Rx solution 30 days #0 mL amoxicillin 400 mg-potassium 5 ml feeding tube Q8HR #90 mL 11/22/24 11/25/24 Rx clavulanate 57 mg/5 mL oral suspension metoclopramide HCl 10 mg tablet 10 mg feeding tube Q6H PRN nausea 11/23/24 11/25/24 Rx (Reglan) and vomiting #30 tabs Allergies Allergy/AdvReac Type Severity Reaction Status Date / Time clonazepam AdvReac Unknown drowsiness Verified 11/25/24 16:21 Vital Signs Vital Signs - 24 hr 11/24/24 14:00 11/24/24 14:01 11/24/24 14:54 Temperature Pulse Rate 116 H Respiratory Rate 24 H Blood Pressure 138/91 H Pulse Oximetry 98 98 98 Oxygen Delivery High Flow Therapy with Fa Oxygen Flow Rate 8 11/24/24 17:19 11/24/24 17:34 11/24/24 19:30 Temperature Pulse Rate 105 H 101 H 92 Respiratory Rate 24 H 22 H 22 H Blood Pressure 160/88 H Pulse Oximetry 98 100 Oxygen Delivery Oxygen Flow Rate 11/24/24 20:01 11/24/24 20:30 11/25/24 00:15 Temperature Pulse Rate 98 96 86 Respiratory Rate 24 H 22 H 20 Blood Pressure 143/84 H 144/82 H 155/79 H Pulse Oximetry 100 96 Oxygen Delivery Oxygen Flow Rate 11/25/24 04:32 11/25/24 05:01 11/25/24 05:15 Temperature Pulse Rate 89 96 90 Respiratory Rate 23 H 19 21 H Blood Pressure 139/85 139/85 Pulse Oximetry 100 Oxygen Delivery Oxygen Flow Rate 11/25/24 05:30 11/25/24 05:31 11/25/24 05:46 Temperature Pulse Rate 89 91 82 Respiratory Rate 21 H 20 22 H Blood Pressure 124/81 Pulse Oximetry Oxygen Delivery Oxygen Flow Rate 11/25/24 06:00 11/25/24 06:01 11/25/24 07:31 Temperature Pulse Rate 85 86 90 Respiratory Rate 16 17 19 Blood Pressure 140/98 H 100/55 L Pulse Oximetry 97 Oxygen Delivery Oxygen Flow Rate 11/25/24 07:42 11/25/24 07:45 11/25/24 08:34 Temperature Pulse Rate 89 90 94 Respiratory Rate 24 H 26 H 22 H Blood Pressure Pulse Oximetry 98 99 100 Oxygen Delivery Oxygen Flow Rate 11/25/24 08:45 11/25/24 09:00 11/25/24 09:15 Temperature Pulse Rate 94 96 92 Respiratory Rate 23 H 18 24 H Blood Pressure Pulse Oximetry 100 100 99 Oxygen Delivery Oxygen Flow Rate 11/25/24 09:30 11/25/24 09:45 11/25/24 10:00 Temperature Pulse Rate 91 95 87 Respiratory Rate 23 H 23 H 22 H Blood Pressure Pulse Oximetry 100 99 Oxygen Delivery Oxygen Flow Rate 11/25/24 10:16 11/25/24 10:34 11/25/24 10:47 Temperature Pulse Rate 80 91 95 Respiratory Rate 24 H 23 H 21 H Blood Pressure Pulse Oximetry Oxygen Delivery Oxygen Flow Rate 11/25/24 11:00 11/25/24 11:30 11/25/24 11:46 Temperature Pulse Rate 105 H 84 84 Respiratory Rate 25 H 20 20 Blood Pressure Pulse Oximetry Oxygen Delivery Oxygen Flow Rate 11/25/24 12:02 11/25/24 12:26 11/25/24 12:36 Temperature 36.6 C Pulse Rate 89 89 96 Respiratory Rate 21 H 22 H 18 Blood Pressure 140/95 H Pulse Oximetry 97 Oxygen Delivery Oxygen Flow Rate Exam Narrative: GENERAL: chronically ill appearing, in no acute distress, more awake than usual RESPIRATORY: Airway patent, respirations nonlabored. Clear to auscultation bilaterally, no rales, rhonchi, wheezing. Tracheostomy present w/o obvious secretions or inflammation surrounding stoma CARDIOVASCULAR: Normal rate with regular rhythm without murmurs, rubs, or gallops. ABDOMINAL: G-tube in abdomen. No appreciable tenderness. MUSCULOSKELETAL: No gross deformities. L hemiparesis. L AKA. R leg in cushioned boot. SKIN: Warm, dry, normal color. Diffuse dry skin. NEURO: Occasionally alert, nonverbal, occasionally able to shake head yes/no. L hemiparesis r/t previous CVA. Able to follow some simple commands and squeeze his R hand. H&P: Results Labs Labs: Short CBC 11/24/24 11/25/24 Range/Units 15:12 12:50 WBC 10.2 H 7.2 (4.5-10.0) K/mm3 Hgb 12.8 L 11.5 L (14.0-18.0) g/dL Hct 39.5 L 33.7 L (42.0-52.0) % Plt Count 232 252 (150-375) k/mm3 [facility] 11/24/24 11/25/24 15:12 13:06 Sodium 138 139 Potassium 3.4 3.7 Chloride 102 108 H Carbon Dioxide 25 24 BUN 10 9 Creatinine 0.48 L 0.50 L Glucose 122 H 100 Calcium 9.7 9.5 Cardiac Enzymes 11/24/24 11/24/24 11/24/24 Range/Units 15:12 15:12 15:12 Total Creatine Kinase 132 Cancelled (55-170) U/L Troponin I 0.038 H* Cancelled (0.000-0.034) ng/mL 11/24/24 11/25/24 Range/Units 22:08 12:49 Total Creatine Kinase (55-170) U/L Troponin I 0.044 H* < 0.012 (0.000-0.034) ng/mL Liver Function 11/24/24 11/25/24 Range/Units 15:12 13:06 Total Bilirubin 0.4 0.6 (0.2-1.3) mg/dL AST 53 45 (17-59) U/L ALT 61 H 49 (6-50) U/L Alkaline Phosphatase 103 83 (38-126) U/L Albumin 4.0 3.5 (3.5-5.1) g/dL Urine 11/25/24 Range/Units 06:44 Urine Color Yellow (Yellow) Urine Appearance Cloudy H (Clear) Urine pH 7.0 (5.0-9.0) Ur Specific [place] 1.020 (1.001-1.035) Urine Protein 1+ H (Negative) mg/dL Urine Glucose (UA) Negative (Negative) mg/dL Pulse Oximetry SpO2 results: 94-97% on trach collar Attestation: I personally reviewed and interpreted this pulse oximetry as follows: Interpretation: Trach collar with humidity, oxygen if needed, otherwise compressed air is ok ECG Attestation: I personally reviewed and interpreted this ECG as follows: ECG completion date: 11/24/24 ECG completion time: 16:19 Prior ECG tracings: available for review Interpretation: Sinus tachycardia rate 107 AK interval 174 QRS duration 90 QTC 457 QRS axis -25 left axis deviation no acute STEMI, comparable to prior EKGs Imaging CT scan - head: Radiologist's impression: EXAMINATION: CT brain wo con DATE: 11/24/2024 15:05 INDICATION: multiple seizures . TECHNIQUE: Computed tomography (CT) of the head was performed without intravenous contrast. The mA was adjusted according to patient size. Iterative reconstruction technique was employed. The dose-length product was 681.00 mGy- cm. COMPARISON: 03/29/2024, 02/10/2024. FINDINGS: No acute intracranial hemorrhage or extra-axial fluid collection. No hydrocephalus, mass, or herniation. No acute ischemic infarct. Unremarkable dural venous sinus attenuation. No acute osseous abnormality. Aerated secretions in the right sphenoid sinus, near complete opacification of the right maxillary sinus with surrounding sclerosis, polypoid density in the right nasal cavity, trace right mastoid fluid aerated spaces are clear. Moderate atrophy and chronic white matter change. Atherosclerotic intracranial calcification. Old bilateral thalamic and bilateral basal ganglia lacunar infarcts. Right occipital encephalomalacia. Left occipital subcutaneous scalp cysts. IMPRESSION: No acute intracranial process. Possible acute right sphenoid sinusitis. Chronic right maxillary sinusitis. Reviewed, dictated and finalized at location K. Chest x-ray: Radiologist's impression: EXAMINATION: XR chest 1V Exam Date/Time: 11/24/2024 15:00 CDT HISTORY: seizures Comparison: 11/23/2024. RESULT: Lines, tubes, and devices: Tracheostomy tube, in good position. Lungs and pleura: Subsegmental streaky bibasilar opacities. Cardiomediastinal silhouette: Stable. Other: No acute osseous or upper abdominal finding. IMPRESSION: Subsegmental bibasilar atelectasis/consolidation. Reviewed, dictated and finalized at location K. CXR 11/23: Radiologist's impression: EXAM/PROCEDURE: XR chest 1V - 11/23/2024 9:25 CDT HISTORY: 64 years old Male with Vomiting, Possible aspiration TECHNIQUE: AP view(s) of the chest. COMPARISON: None available. FINDINGS: LUNGS/ PLEURA: Airspace opacities in bilateral lung bases, right greater than left. No pneumothorax or pleural effusion. HEART/ MEDIASTINUM: Heart appears normal in size. BONES: Degenerative changes. OTHER: Visualized upper abdomen is unremarkable. Tracheostomy seen. IMPRESSION: Airspace opacities in bilateral lung bases, right greater than left. Findings can represent pneumonia in appropriate clinical settings. Short-term follow-up chest radiograph is recommended after appropriate clinical therapy. Reviewed, dictated and finalized at location A. CT scan - abdomen: Radiologist's impression: EXAM: CT chest abdomen pelvis w con - 11/23/2024 9:10 CDT HISTORY: 64 years old Male with Vomiting, non-verb, hx of gastroparesis/aspiration TECHNIQUE: Multidetector CT of the chest, abdomen and pelvis was performed with intravenous contrast Coronal and sagittal reformats were also provided for review. Automatic exposure control was used for this study. CONTRAST: 100 cc of Optiray 350 was used for this study COMPARISON: 11/20/2024 FINDINGS: CHEST: VISUALIZED LOWER NECK: Thyroid gland appears normal. No supraclavicular lymphadenopathy. AIRWAYS: Patent centrally. Tracheostomy seen. LUNGS and PLEURA: Bibasilar atelectasis and/or scarring. MEDIASTINUM and ERI: No evidence of mediastinal hematoma. No lymphadenopathy. HEART AND PERICARDIUM: Heart is normal in size. No pericardial effusion. CHEST WALL: No axillary lymphadenopathy. Chest wall appears normal. VASCULATURE: Thoracic aorta and pulmonary arteries are normal in caliber. ABDOMEN and PELVIS: LIVER: Within normal limits. GALLBLADDER: No calcified gallstones. BILE DUCTS: Normal caliber. SPLEEN: Within normal limits. PANCREAS: Within normal limits. ADRENAL GLANDS: Within normal limits. KIDNEYS and URETERS: No hydronephrosis or hydroureter. No evidence for nephroureterolithiasis. URINARY BLADDER: Within normal limits. STOMACH and BOWEL: Limited evaluation without adequate distention due to lack of oral contrast. Within the limits there appears to be no abnormal bowel wall thickening. No bowel obstruction. Appendix is within normal limits. Gastrostomy tube is seen in the stomach. The balloon appears to be inflated in the mid to distal stomach. REPRODUCTIVE ORGANS: Within normal limits. MESENTERY/PERITONEAL CAVITY: No free fluid or pneumoperitoneum. LYMPH NODES: No abdominal or pelvic lymphadenopathy. ABDOMINAL WALL: Small fat-containing umbilical hernia. VASCULATURE: Within normal limits. MUSCULOSKELETAL, THORACIC AND LUMBAR SPINE: Multilevel degenerative changes of the spine. IMPRESSION: Gastrostomy tube with its balloon inflated in the mid to distal stomach. The balloon appears to be causing distal gastric obstruction. Consider pulling the balloon back into the stomach wall so that its no longer causing distal gastric obstruction. Reviewed, dictated and finalized at location A. Assessment and Plan Assessment and plan (1) Recurrent seizures: Code(s): G40.909 - Epilepsy, unspecified, not intractable, without status epilepticus Status: Acute Assessment and Plan: -Patient's malfunctioned G-tube led to vomiting of antiepileptic medications and missed doses which led to recurrent seizures. -This happens quite often. -Transfer to [facility] has been accepted but no bed available yet. -Transfer is for Neurology and possible G-J placement. (2) Malfunction of gastrostomy tube: Code(s): K94.23 - Gastrostomy malfunction Status: Acute Assessment and Plan: -Recurrent problem, balloon sinks down and blocks gastric outlet -Gastroparesis and vomiting frequent -Leads to aspiration pneumonia and missed doses of antiepileptic medications leading to recurrent seizures -Transfer to [facility] to work up for G-J tube placement to prevent this from recurring all the time (3) Gastroparesis: Code(s): K31.84 - Gastroparesis Status: Chronic Assessment and Plan: -Slowed gastric emptying anyway, often made worse by balloon from G-tube blocking outlet -Check residuals often and ensure tube does not get pushed in too far when flushing/giving meds -Computer Aided Design Drafter consult, possible tube feed adjustments?? (4) Elevated troponin: Code(s): R79.89 - Other specified abnormal findings of blood chemistry Status: Acute Assessment and Plan: -Barely elevated troponin in setting of seizure activity, back to normal by t genna -EKG unchanged from prior -Continue home medications including aspirin, no need for Cardiology at this time (5) Tracheostomy in place: Code(s): Z93.0 - Tracheostomy status Status: Chronic Assessment and Plan: -Chronic placement, trach collar with compressed air and humidity or oxygen if needed to maintain saturations -Currently functioning properly (6) Atelectasis of right lung: Code(s): J98.11 - Atelectasis Status: Chronic Assessment and Plan: -Chronic problem, prior right lung collapse -Mucomyst nebs and Vest therapy -Defer abx at this time, 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 (7) History of multiple strokes: Code(s): Z86.73 - Personal history of transient ischemic attack (TIA), and cerebral infarction without residual deficits Status: Chronic Assessment and Plan: -Patient has left sided flacidity, aphasia, dysphagia and seizures from prior strokes -Remains Full Code Status per family -Continue home medications for secondary prevention Plan Admit to Med/Surg pending Transfer to [facility] bed availability Quality VTE Prophylaxis VTE prophylaxis: pharmacologic ordered Hospitalist MIPS Advance Care Plan I have confirmed that the patient's Advanced Care Plan is present, code status is documented, or surrogate decision maker is listed in patient medical record.: Yes Medication Reconciliation I have utilized all available resources to obtain, update and review the patients current medications (includes all prescriptions, OTC, herbals, cannabis, and nutritional supplements).: Yes
--- NOTE | 2024-11-25 15:57 | ADMGEN ---
This patient, Bi Tabor, was admitted to Medical Room 254-01. Patient/family oriented to hospital policies and general routines including ID bracelet, bed and alarms, visiting hours, pain management, procedures, bathroom and other care routines, personal items, smoking policy, room service/diet, and visiting hours. Information on how to activate the Rapid Response Team has been discussed. Patient/Family are encouraged to report perceived risks to care and to ask questions if they do not understand what they are told or what they should do.
--- NOTE | 2024-11-25 16:46 | PC.NURSE ---
Admission done with help of pt's medical records due to recent admission and pt being unable to help with admission.
[2024-11-25] MEDS: ISOSORBIDE DINITRATE 5 MG TABLET FEED TUBE (17:40)
[2024-11-25] MEDS: METOPROLOL TARTRATE 25 MG TABLET FEED TUBE (21:26)
[2024-11-25] MEDS: ATORVASTATIN 40 MG TABLET FEED TUBE (21:26)
[2024-11-25] MEDS: SENNOSIDES 8.8 MG/5 ML SYRUP FEED TUBE (21:27)
[2024-11-25] MEDS: GLYCOPYRROLATE 1 MG TABLET 2 MG FEED TUBE (21:27)
[2024-11-25] MEDS: AMOXICILLIN/CLAVULANATE K SUSP 400-57 MG/5 ML 5 ML UD 400 MG FEED TUBE (21:28)
[2024-11-25] MEDS: PANTOPRAZOLE SODIUM IV 40 MG VIAL IV PUSH (21:29)
[2024-11-25] MEDS: SCOPOLAMINE 1 MG PATCH 1 PATCH TRANSDERM (22:59)
[2024-11-26] VITALS (9 sets, daily range): BP systolic 131–142; BP diastolic 73–78; PULSE 78–102; RESP 17–18; TEMP 36.6; O2SAT 92–94; BMI 26.6
[2024-11-26] MEDS: AMOXICILLIN/CLAVULANATE K SUSP 400-57 MG/5 ML 5 ML UD 400 MG FEED TUBE ×2 (06:16→13:50)
[2024-11-26] MEDS: GLYCOPYRROLATE 1 MG TABLET 2 MG FEED TUBE ×2 (06:16→13:50)
[2024-11-26] MEDS: LACOSAMIDE (*CRX) 50 MG TABLET 250 MG FEED TUBE (09:14)
[2024-11-26] MEDS: amLODIPine BESYLATE 5 MG TABLET FEED TUBE (09:14)
[2024-11-26] MEDS: ASPIRIN 81 MG CHEWABLE TABLET FEED TUBE (09:14)
[2024-11-26] MEDS: SENNOSIDES 8.8 MG/5 ML SYRUP FEED TUBE (09:15)
[2024-11-26] MEDS: FINASTERIDE 5 MG TABLET FEED TUBE (09:15)
[2024-11-26] MEDS: levETIRAcetam ORAL SOL 500 MG/5 ML UDC 2000 MG FEED TUBE (09:15)
[2024-11-26] MEDS: METOPROLOL TARTRATE 25 MG TABLET FEED TUBE (09:15)
[2024-11-26] MEDS: PANTOPRAZOLE SODIUM IV 40 MG VIAL IV PUSH (09:15)
[2024-11-26] MEDS: ENOXAPARIN 40 MG/0.4 ML SYRINGE SUB-Q (09:15)
[2024-11-26] MEDS: ISOSORBIDE DINITRATE 5 MG TABLET FEED TUBE ×2 (09:15→13:50)
[2024-11-26] MEDS: FOLIC ACID 1 MG TABLET FEED TUBE (09:15)
[2024-11-26] MEDS: THIAMINE HCL 100 MG TABLET FEED TUBE (09:20)
[2024-11-26 09:56] LABS: Hemoglobin 11.1 g/dL (14.0-18.0); Mean Corpuscular HGB Conc 32.6 g/dl (32-36); Mean Corpuscular Hemoglobin 31.8 pg (26-34); Mean Corpuscular Volume 97.4 fl (80-100); Mean Platelet Volume 10.5 fl (7.4-10.4); Platelet Count Result 247 k/mm3 (150-375); Red Blood Count 3.49 M/mm3 (4.6-6.20); Red Cell Distribution Width 13.2 % (11.5-14.5)
[2024-11-26 10:13] LABS: Anion Gap 9 mmol/L (4-12); Blood Urea Nitrogen 10 mg/dL (9-20); Calcium 9.3 mg/dL (8.4-10.2); Carbon Dioxide 22 mmol/L (22-30); Chloride 106 mmol/L (98-107); Estimated CRCL calculation 114 ml/min; Estimated Glomerular Filt Rate > 60; Glucose 103 mg/dL (65-110); Magnesium 1.8 mg/dL (1.6-2.3); Potassium 3.2 mmol/L (3.4-5.0); Sodium 137 mmol/L (137-145)
--- NOTE | 2024-11-26 14:14 | PM.TDS ---
Transfer Discharge Sum: Prov Provider Date of admission: 11/25/24 13:33 Primary care physician: PHYSICIAN NOT ON STAFF Admitting clinician: Zeferino Morfin MD Consults: 11/25/24 Consult to Dietitian Routine Reason for Consult:: recurrent emesis from high G tube residuals 11/26/24 09:13 Consult to Physician Routine Comment: Spoke to 11/26 0918 ([facility]) Consulting Provider: Rehan Palmer yardage caller/MD group to consult: neurologist Reason for consultation: recurrent seizures Has provider been notified: Yes DS: Admitting Diagnosis Discharge Date 11/26 Admitting Diagnosis Seizures DS: Discharge Diagnosis Discharge Diagnosis (1) Recurrent seizures: Code(s): G40.909 - Epilepsy, unspecified, not intractable, without status epilepticus Status: Acute Assessment and Plan: -Patient's malfunctioned G-tube led to vomiting of antiepileptic medications and missed doses which led to recurrent seizures. -This happens quite often. -Transfer to [facility] has been accepted but no bed available yet. -Transfer is for Neurology and possible G-J placement. (2) Malfunction of gastrostomy tube: Code(s): K94.23 - Gastrostomy malfunction Status: Acute Assessment and Plan: -Recurrent problem, balloon sinks down and blocks gastric outlet -Gastroparesis and vomiting frequent -Leads to aspiration pneumonia and missed doses of antiepileptic medications leading to recurrent seizures -Transfer to [facility] to work up for G-J tube placement to prevent this from recurring all the time (3) Gastroparesis: Code(s): K31.84 - Gastroparesis Status: Chronic Assessment and Plan: -Slowed gastric emptying anyway, often made worse by balloon from G-tube blocking outlet -Check residuals often and ensure tube does not get pushed in too far when flushing/giving meds -Ferris Wheel Operator consult, possible tube feed adjustments?? (4) Elevated troponin: Code(s): R79.89 - Other specified abnormal findings of blood chemistry Status: Acute Assessment and Plan: -Barely elevated troponin in setting of seizure activity, back to normal by today -EKG unchanged from prior -Continue home medications including aspirin, no need for Cardiology at this time (5) Tracheostomy in place: Code(s): Z93.0 - Tracheostomy status Status: Chronic Assessment and Plan: -Chronic placement, trach collar with compressed air and humidity or oxygen if needed to maintain saturations -Currently functioning properly (6) Atelectasis of right lung: Code(s): J98.11 - Atelectasis Status: Chronic Assessment and Plan: -Chronic problem, prior right lung collapse -Mucomyst nebs and Vest therapy -Defer abx at this time, 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 (7) History of multiple strokes: Code(s): Z86.73 - Personal history of transient ischemic attack (TIA), and cerebral infarction without residual deficits Status: Chronic Assessment and Plan: -Patient has left sided flacidity, aphasia, dysphagia and seizures from prior strokes -Remains Full Code Status per family -Continue home medications for secondary prevention Plan Admit to Med/Surg pending Transfer to [facility] bed availability Transfer Discharge Sum: Med Medications Active and Home Medications: Home Medications metoprolol tartrate 25 mg tablet 25 mg feeding tube BID 12/18/22 [History Confirmed 11/25/24] polyethylene glycol 3350 17 gram/dose oral powder 17 g feeding tube DAILY PRN Constipation 12/18/22 [History Confirmed 11/25/24] bisacodyl 10 mg rectal suppository 10 mg RECTAL DAILY PRN Constipation 02/11/23 [History Confirmed 11/25/24] sennosides 8.6 mg tablet (senna) 8.6 mg feeding tube BID 02/11/23 [History Confirmed 11/25/24] guaifenesin 100 mg/5 mL oral liquid 300 mg feeding tube Q12H PRN Cough 07/08/23 [History Confirmed 11/25/24] magnesium hydroxide 400 mg/5 mL oral suspension (Milk of Magnesia) 30 ml feeding tube HS PRN Constipation 12/13/23 [History Confirmed 11/25/24] atorvastatin 40 mg tablet 40 mg feeding tube HS 02/10/24 [History Confirmed 11/25/24] calcium carbonate 500 mg/5 mL (as calcium carb 1,250 mg/5 mL) oral suspension 1,250 mg feeding tube Q6H PRN Heartburn 02/10/24 [History Confirmed 11/25/24] folic acid 1 mg tablet 1 mg feeding tube DAILY 02/10/24 [History Confirmed 11/25/24] ipratropium 0.5 mg-albuterol 3 mg (2.5 mg base)/3 mL nebulization soln 3 ml inhalation Q6H PRN Shortness Of Breath 02/10/24 [History Confirmed 11/25/24] magnesium citrate (Citroma oral solution) 296 ml feeding tube DAILY PRN Constipation 02/10/24 [History Confirmed 11/25/24] thiamine HCl (vitamin B1) 100 mg tablet 100 mg feeding tube DAILY 02/10/24 [History Confirmed 11/25/24] acetaminophen 650 mg/20.3 mL oral suspension 650 mg feeding tube Q4H PRN Pain (Scale Score 1-3) 03/30/24 [History Confirmed 11/25/24] aspirin 81 mg chewable tablet 81 mg feeding tube DAILY 03/30/24 [History Confirmed 11/25/24] finasteride 5 mg tablet 5 mg feeding tube DAILY 10/18/24 [History Confirmed 11/25/24] glycopyrrolate 2 mg tablet 2 mg feeding tube Q8H 10/18/24 [History Confirmed 11/25/24] metoclopramide HCl 10 mg tablet 10 mg feeding tube Q6H PRN nausea and vomiting 10/18/24 [History Confirmed 11/25/24] ondansetron HCl 4 mg tablet 4 mg feeding tube Q6H PRN nausea and vomiting 10/18/24 [History Confirmed 11/25/24] pantoprazole 40 mg tablet,delayed release 40 mg PO Q12H 10/18/24 [History Confirmed 11/25/24] amlodipine 5 mg tablet (Norvasc) 5 mg feeding tube DAILY 30 days #30 tabs 10/29/24 [Rx Confirmed 11/25/24] isosorbide dinitrate 5 mg tablet 5 mg feeding tube TID 30 days #90 tabs 10/29/24 [Rx Confirmed 11/25/24] lacosamide 10 mg/mL oral solution 250 mg (25 mL) feeding tube BID 30 days #200 mL 10/29/24 [Rx Confirmed 11/25/24] levetiracetam 100 mg/mL oral solution 2,000 mg (20 mL) feeding tube BID 30 days #0 mL 10/29/24 [Rx Confirmed 11/25/24] amoxicillin 400 mg-potassium clavulanate 57 mg/5 mL oral suspension 5 ml feeding tube Q8HR #90 mL 11/22/24 [Rx Confirmed 11/25/24] metoclopramide HCl 10 mg tablet (Reglan) 10 mg feeding tube Q6H PRN nausea and vomiting #30 tabs 11/23/24 [Rx Confirmed 11/25/24] Active Medications Acetaminophen (Acetaminophen Elixir 325 Mg/10.15 Ml Udc) 650 mg FEED TUBE Q4H PRN PRN Reason: Pain Rated 5 or Less or Fever Albuterol/Ipratropium (Ipratropium 0.5 Mg/Albuterol Sulfate 2.5 Mg Ampul.Neb 3 Ml) 3 ml INHALATION Q6H PRN PRN Reason: Shortness Of Breath Or Wheezing Amlodipine Besylate (Amlodipine Besylate 5 Mg Tablet) 5 mg FEED TUBE DAILY [facility] Last Admin: 11/26/24 09:14 Dose: 5 mg Amoxicillin/Clavulanate Potassium (Amoxicillin/Clavulanate K Susp 400-57 Mg/5 Ml 5 Ml Ud) 400 mg FEED TUBE Q8HR [facility] Last Admin: 11/26/24 13:50 Dose: 400 mg Aspirin (Aspirin 81 Mg Chewable Tablet) 81 mg FEED TUBE DAILY [facility] Last Admin: 11/26/24 09:14 Dose: 81 mg Atorvastatin Calcium (Atorvastatin 40 Mg Tablet) 40 mg FEED TUBE HS [facility] Last Admin: 11/25/24 21:26 Dose: 40 mg Bisacodyl (Bisacodyl 10 Mg Suppository) 10 mg RECTAL DAILY PRN PRN Reason: Constipation Calcium Carbonate (Calcium Carbonate (Tums) 500 Mg (200 Mg Elemental)) 200 mg FEED TUBE Q6H PRN PRN Reason: Heartburn Enoxaparin Sodium (Enoxaparin 40 Mg/0.4 Ml Syringe) 40 mg SUB-Q DAILY [facility] Last Admin: 11/26/24 09:15 Dose: 40 mg Finasteride (Finasteride 5 Mg Tablet) 5 mg FEED TUBE DAILY [facility] Last Admin: 11/26/24 09:15 Dose: 5 mg Folic Acid (Folic Acid 1 Mg Tablet) 1 mg FEED TUBE DAILY [facility] Last Admin: 11/26/24 09:15 Dose: 1 mg Glycopyrrolate (Glycopyrrolate 1 Mg Tablet) 2 mg FEED TUBE Q8HR [facility] Last Admin: 11/26/24 13:50 Dose: 2 mg Guaifenesin (Guaifenesin 200 Mg/10 Ml Udc) 300 mg FEED TUBE Q12H PRN PRN Reason: Cough Isosorbide Dinitrate (Isosorbide Dinitrate 5 Mg Tablet) 5 mg FEED TUBE TID [facility] Last Admin: 11/26/24 13:50 Dose: 5 mg Lacosamide (Lacosamide (*Crx) 50 Mg Tablet) 250 mg FEED TUBE Q12HR [facility] Last Admin: 11/26/24 09:14 Dose: 250 mg Levetiracetam (Levetiracetam Oral Amparo 500 Mg/5 Ml Udc) 2,000 mg FEED TUBE Q12HR [facility] Last Admin: 11/26/24 09:15 Dose: 2,000 mg Magnesium Hydroxide (Magnesium Hydroxide Susp 30 Ml Udc) 30 ml FEED TUBE HS PRN PRN Reason: Constipation Metoclopramide HCl (Metoclopramide Hcl Inj 10 Mg/2 Ml Vial) 10 mg IV PUSH Q6HR PRN PRN Reason: nausea/vomiting Metoclopramide HCl (Metoclopramide Hcl 10 Mg Tablet) 10 mg FEED TUBE Q6H PRN PRN Reason: nausea and vomiting Metoprolol Tartrate (Metoprolol Tartrate 25 Mg Tablet) 25 mg FEED TUBE Q12HR [facility] Last Admin: 11/26/24 09:15 Dose: 25 mg Ondansetron HCl (Ondansetron Inj 4 Mg/2 Ml Vial) 4 mg IV PUSH Q6H PRN PRN Reason: Nausea And Vomiting Ondansetron HCl (Ondansetron Hcl Odt 4 Mg Tablet) 4 mg BY MOUTH Q6H PRN PRN Reason: nausea and vomiting Pantoprazole Sodium (Pantoprazole Sodium Iv 40 Mg Vial) 40 mg IV PUSH Q12HR [facility] Last Admin: 11/26/24 09:15 Dose: 40 mg Polyethylene Glycol (Polyethylene Glycol 3350 17 Gm Powd.Pack) 17 gm FEED TUBE DAILY PRN PRN Reason: Constipation Senna (Sennosides 8.8 Mg/5 Ml Syrup) 8.8 mg FEED TUBE Q12HR [facility] Last Admin: 11/26/24 09:15 Dose: 8.8 mg Thiamine HCl (Thiamine Hcl 100 Mg Tablet) 100 mg FEED TUBE DAILY [facility] Last Admin: 11/26/24 09:20 Dose: 100 mg Transfer Discharge Sum: Hosp Hospital Course Hospital course: Bi Tabor is a 64 year old male Patient Condition: Stable Time Spent with Patient Time attestation: Total time spent providing and/or coordinating transfer services: patient with malfunctioning G tube and unable to receive his seizures medications resulting recurrent patient, patient needs further evaluation by GI service at [facility], for revision of his G tube and insertions of J tube to help take his medications and food. patient has a bed avaiable will discharge today. Exam Narrative: patient is clinically stable at the time of transfer Patient is comfortable, NAD HEENT: eyes are clear and none icteric LUNGS:CTA HEART: RR S1S2 ABD: BS+, Soft and nontender Lower extremities: no edema SKIN: nonjaundiced Neuro: grossly intact. DS: Data Data Completed and Pending Labs on day of discharge: Labs from last 24 hours 11/26/24 09:45 WBC 7.0 RBC 3.49 L Hgb 11.1 L Hct 34.0 L MCV 97.4 MCH 31.8 MCHC 32.6 RDW 13.2 Plt Count 247 MPV 10.5 H Sodium 137 Potassium 3.2 L Chloride 106 Carbon Dioxide 22 Anion Gap 9 BUN 10 Creatinine 0.52 L Estim Creat Clear Calc 114 Estimated GFR > 60 Glucose 103 Calcium 9.3 Magnesium 1.8
== END 2024-11-26 15:45 | disposition short-term general hospital (02) | DRG 53 ==
LOC: ANHED 19:49 → ANH2MED 11-25 15:22
PROVIDERS: Emergency Medicine; Nurse Practitioner; Admitting Provider Internal Medicine; Emergency Provider Physician Assistant; Visit Provider Family Medicine
DX: G40.509 Epileptic seizures related to external causes, not intractable, without status epilepticus (principal); I69.398 Other sequelae of cerebral infarction; G40.802 Other epilepsy, not intractable, without status epilepticus; K94.23 Gastrostomy malfunction; K31.84 Gastroparesis; R79.89 Other specified abnormal findings of blood chemistry; J98.11 Atelectasis; F01.50 Vascular dementia, unspecified severity, without behavioral disturbance, psychotic disturbance, mood disturbance, and anxiety; I48.91 Unspecified atrial fibrillation; N40.0 Benign prostatic hyperplasia without lower urinary tract symptoms; D50.9 Iron deficiency anemia, unspecified; Z93.0 Tracheostomy status; I69.320 Aphasia following cerebral infarction; I69.391 Dysphagia following cerebral infarction; Z89.612 Acquired absence of left leg above knee; Z87.820 Personal history of traumatic brain injury; Z86.718 Personal history of other venous thrombosis and embolism
CPT/HCPCS: 36415; 70450; 71045; 80048; 80053; 81001; 82550; 83605; 83735; 84484; 85025; 85027; 85610; 85730; 93005; 99285; A4629; A9270; J1650; J1953; J2060; J2470; J7030; J7050

== ENCOUNTER 2024-12-13 07:23 | Emergency (ER) | payer OTHER, SELFPAY ==
[2024-12-13] VITALS (12 sets, daily range): BP systolic 140–156; BP diastolic 97–109; PULSE 103–115; RESP 15–24; TEMP 36.3–36.7; O2SAT 97–100
--- NOTE | ~2024-12-13 | XR_ITS ---
XR chest 1V portable Ordering provider: Kendell Encarnacion MD History: 64 years Male with . sob . Comparison: November 24, 2024 FINDINGS: MEDIASTINUM: The cardiac silhouette is slightly enlarged. Tracheostomy tube is seen unchanged. LUNGS: No infiltrates, effusions or pneumothorax. OTHER: No free air under the diaphragm. Sclerotic changes versus an artifact seen in the right should er area. IMPRESSION: No acute cardiopulmonary pathology. Reviewed, dictated and finalized at location A.
--- OUTSIDE RECORDS SUMMARY | 2024-12-13 07:37 | XMS_ITS | Encounter Summary ---
Author Organization [facility] Address [address] [place] [address] Care Team Providers Care Sample Mounter Name Role Phone Frank Toure MD Unavailable Kayla Porras COMMANDER INTERNAL AFFAIRS Primary Care Provider [phone] Misael Maradiaga DO Primary Care Provider [phone] Joyce Luevano COMMANDER INTERNAL AFFAIRS Primary Care Provider Unavaila Marielena Adame MD Primary Care Provider [phone] Encounter Details Date Type Department Care Team (Latest Contact Info) Description 02/01/2018 Abstract [facility] , Jerica Cordon [...] on filedocumented in this encounter Care Teams Sample Mounter Relationship Specialty Start Date End Date Kayla Porras NP [address] [place] [address] PCP - General 06/25/16 09/27/18 Misael Maradiaga DO [address] [place] [address] PCP - General FAMILY PRACTICE 09/28/18 01/13/20 Joyce L[place] [address] PCP - General NURSE PRACTITIONER 01/14/20 10/26/23 Marielena Smallwood MD [address] [place] [id number] PCP - General FAMILY PRACTICE 10/27/23 Frank Toure MD [facility] [place] [address] [employer] Electrical Equipment Technician CARDIOVASCULAR DISEASE 05/30/16 documented as of this encounter
--- OUTSIDE RECORDS SUMMARY | 2024-12-13 07:37 | XMS_ITS | Encounter Summary ---
Author Organization [facility] - [facility] Address [address] [place] [address] Care Team Providers Care Tomb Maker Helper Name Role Phone Frank Toure MD Unavailable Joyce Luevano NP Primary Care Provider Unavaila Marielena Adame MD Primary Care Provider [phone] Encounter Details Date Type Department Care Team (Late st Contact Info) Description 03/15/2022 mEgot Message Enc [facility] Medical Group Family Medicine - [address] [address] Joyce Luevano, RELATIONS COORDINATOR Bi Tabor Social History Tobacco Use Types [...] Progress Notes * Yonatan oRdriguez RN - 03/15/2022 1:13 PM CDT Please see note. Thanks documented in this encounter Plan of Treatment Not on file documented as of this encounter Visit Diagnoses Not on filedocumented in this encounter Care Teams Tomb Maker Helper Relationship Specialty Start Date End Date Joyce Luevano NP [address] [place] [address] PCP - General NURSE PRACTITIONER 01/14/20 10/26/23 Marielena Smallwood MD [address] [place] [address] PCP - General FAMILY PRACTICE 10/27/23 Frank Toure MD [address] [place] [address] [employer] Wrapper Sizer CARDIOVASCULAR DISEASE 05/30/16 documented as of this encounter
--- OUTSIDE RECORDS SUMMARY | 2024-12-13 07:37 | XMS_ITS | Encounter Summary ---
Author Organization [facility] - [facility] Address [address] [place] [address] Care Team Providers Care Pipe Bender Name Role Phone Frank Toure MD Unavailable Joyce Luevano NP Primary Care Provider Unavaila Marielena Adame MD Primary Care Provider [phone] Encounter Details Date Type Department Care Team (Late st Contact Info) Description 02/23/2022 MyChart Message Enc [facility] Medical Group Family Medicine - [address] [address] Joyce Luevano, BOUCHRA Bi updated [...] 10:33 AM CDT These updated through the [employer] system. documented in this encounter Plan of Treatment Not on file documented as of this encounter Visit Diagnoses Not on filedocumented in this encounter Care Teams Pipe Bender Relationship Specialty Start Date End Date Joyce Luevano NP [address] [place] [address] PCP - General NURSE PRACTITIONER 01/14/20 10/26/23 Marielena Smallwood MD [address] [place] [id number] PCP - General FAMILY PRACTICE 10/27/23 Frank Toure MD [address] [place] [address] [employer] Department Of Mathematics Chair CARDIOVASCULAR DISEASE 05/30/16 documented as of this encounter
--- OUTSIDE RECORDS SUMMARY | 2024-12-13 07:37 | XMS_ITS | Encounter Summary ---
Author Organization [facility] - [facility] Address [address] [place] [address] Care Team Providers Care Chlorobutadiene Scrubber Operator Name Role Phone Frank Toure MD Unavailable Joyce Luevano NP Primary Care Provider Unavaila Marielena Adame MD Primary Care Provider [phone] Encounter Details Date Type Department Care Team (Late st Contact Info) Description 07/06/2022 MyCaCommercet Message Enc [facility] Medical Group Family Medicine - [address] [address] Joyce Luevano, SOLDERING MACHINE TENDER Bi Tabor Social History Tobacco Use Types [...] Coronavirus/COVID-19? No / Unsure 06/17/2022 10:38 AM COLLISION TECHNICIAN documented as of this encounter Functional [...] 1:34 PM CST Please see note. Thanks ISION TECHNICIAN * Yonatan Rodriguez RN - 07/07/2022 8:09 AM CST Please see note. Thanks ISION TECHNICIAN documented in this encounter Plan of Treatment Not on file documented as of this encounter Visit Diagnoses Not on filedocumented in this encounter Care Teams Chlorobutadiene Scrubber Operator Relationship Specialty Start Date End Date Joyce Luevano NP [address] [place] [address] PCP - General NURSE PRACTITIONER 01/14/20 10/26/23 Marielena Smallwood MD [address] [place] [id number] PCP - General FAMILY PRACTICE 10/27/23 [place] [address] [place] [id number] [employer] Front Desk Receptionist CARDIOVASCULAR DISEASE 05/30/16 documented as of this encounter
--- OUTSIDE RECORDS SUMMARY | 2024-12-13 07:37 | XMS_ITS | Data Portability ---
Demographics Address [address] [place] [address] Home Phone Mobile Phone Email Address Preferred Language en Marital Status Never Caodaism Affiliation Unknown Race Black or Irma rican Ethnic Group Not or Lati no Author Organization [facility] Address [address] [place] [address] Assessment No assessment recorded. Plan of Treatment Reminders Order Date Submit Date Provider Last Modified By Organization Details Last Modified Time Details Appointments None recorded. Lab None recorded. Referral None recorded. Procedures None recorded. Surgeries None recorded. Imaging None recorded. Medication Orders ibuprofen 800 mg tablet 2015 016 [facility] [employer], [address] [place] [address], [id number], 6 18:35:08 Prozac 20 mg capsule 2014 015 [facility] [employer], [address] [place] [address], [id number], 5 16:10:15 tramadol 50 mg tablet 2014 015 [facility] [employer], [address] [place] [address], [id number], 5 12:13:56 Flomax 0.4 mg capsule 2014 015 [employer], [address] [place] [address], [id number], 5 16:10:16 Ambien 10 mg tablet 2014 015 [place] [facility], [facility], [address] [place] [address], [id number], 5 10:37:28 Patient TargetsNo targets recorded. Patient Instructions Encounter Date Encounter Id Patient Instructions Last Modified By Organization Details Last Modified Time 06/10/2014 [id number] stroke: care instructions Not available 06/21/2014 17:33:19 insomnia: care instructions Not available 06/21/2014 17:33:19 epilepsy: care instructions Not available 06/21/2014 17:33:19 09/18/2014 [id number] epilepsy: care instructions [email or web address] Not available 09/18/2014 17:05:10 back care and preventing injuries: care instructions [email or web address] Not available 09/18/2014 17:05:10 04/16/2015 [id number] epilepsy: care instructions campadu Not available 04/16/2015 16:05:30 06/12/2015 [id number] stroke: care instructions [email or web address] Not available 06/13/2015 12:21:31 epilepsy: care instructions dsalmond Not available 06/13/2015 12:21:31 learning about high blood pressure dsalmond Not available 06/13/2015 12:21:31 Reason for Referral None Reported. Results Created Date Observation Date Name Description Value Unit Range Abnormal Flag Note LastModifiedBy Organization Detail LastModifiedTime 06/12/19 16 06/12/2015 CBC w/ auto diff WBC 5.9 K/uL 3.4-10 .8 Not Available [facility] (Lab) [address] [place], [address], 06/12/2015 19:52:35 06/12/19 16 06/12/2015 CBC w/ auto diff red blood count 4.6 M/uL 4.5-6. 3 Not Available [facility] (Lab) [address], [place], [address], 06/12/2015 19:52:35 06/12/19 16 06/12/2015 CBC w/ auto diff hemoglobin 14.7 g/dL 13.5-1 7.5 Not Available [facility] (Lab) [address] [place], [address], 06/12/2015 19:52:35 06/12/19 16 06/12/2015 CBC w/ auto diff hematocrit 44.5 % 40.0-5 2.0 Not Available [facility] (Lab) [address] [place], [address], 06/12/2015 19:52:35 06/12/19 16 06/12/2015 CBC w/ auto diff MCV 97 fL 80-95 high Not Available [facility] (Lab) [address] [place], [address], 06/12/2015 19:52:35 06/12/19 16 06/12/2015 CBC w/ auto diff MCH 32 pg 27-32 Not Available [facility] (Lab) [address] [place], [address], 06/12/2015 19:52:35 06/12/19 16 06/12/2015 CBC w/ auto diff MCHC 33 g/dL 32-36 Not Available [facility] (Lab) [address] [place], [address], 06/12/2015 19:52:35 06/12/19 16 06/12/2015 CBC w/ auto diff platelets 219 K/uL 155-37 9 Not Available [facility] (Lab) [address] [place], [address], 06/12/2015 19:52:35 06/12/19 16 06/12/2015 CBC w/ auto diff RDW 11.6 % 11.5-1 4.5 Not Available [facility] (Lab) [address] [place], [address], 06/12/2015 19:52:35 06/12/19 16 06/12/2015 CBC w/ auto diff MPV 11.1 fL 8.9-12 .7 Not Available [facility] (Lab) [address] [place], [address], 06/12/2015 19:52:35 06/12/19 16 06/12/2015 CBC w/ auto diff neutrophils absolute 2.5 K/uL 1.4-7. 0 Not Available [facility] (Lab) [address] [facility], [place], [address], 06/12/2015 19:52:35 06/12/19 16 06/12/2015 CBC w/ auto diff lymphs (absolute) 2.6 K/uL 0.7-3. 1 Not Available [facility] (Lab) [address] [facility], [place], [address], 06/12/2015 19:52:35 06/12/19 16 06/12/2015 CBC w/ auto diff monocytes (absolute) 0.5 K/uL 0.1-0. 9 Not Available [facility] (Lab) [address] [facility], [place], [address], 06/12/2015 19:52:35 06/12/19 16 06/12/2015 CBC w/ auto diff eos (absolute) 0.2 K/uL 0.0-0. 4 Not Available [facility] (Lab) [address] [place], [address], 06/12/2015 19:52:35 06/12/19 16 06/12/2015 CBC w/ auto diff baso (absolute) 0.0 K/uL 0.1-0. 3 low Not Available [facility] (Lab) [address] [facility], [place], [address], 06/12/2015 19:52:35 06/12/19 16 06/12/2015 CBC w/ auto diff neut % 43.1 % 40.0-7 4.0 Not Available [facility] (Lab) [address] [place], [address], 06/12/2015 19:52:35 06/12/19 16 06/12/2015 CBC w/ auto diff lymphs % 44.6 % 14.0-4 6.0 Not Available [facility] (Lab) [address] [place], [address], 06/12/2015 19:52:35 06/12/19 16 06/12/2015 CBC w/ auto diff mono % 8.7 % 4.0-12 .0 Not Available [facility]) [address], [place], [address], 06/12/2015 19:52:35 06/12/19 16 06/12/2015 CBC w/ auto diff eos % 3 % <=5 Not Available [facility]) [address] [facility], [place], [address], 06/12/2015 19:52:35 06/12/19 16 06/12/2015 CBC w/ auto diff baso % 0.2 % 0.1-1. 1 Not Available [facility] (Lab) [address] [facility], [place], [address], 06/12/2015 19:52:35 06/12/19 16 06/13/2015 HbA1c (hemo globi n A1c), blood hemoglobin A1C 5.4 % 4.8-5. 6 . Pre-d iabet es: 5.7 - 6.4 Diabe ivet: >6.4 Glyce [place] contr ol for adult s with diabe ivet: <7.0 Not Available [facility] (Lab) [address] [facility], [place], [address], 06/13/2015 04:12:44 06/12/19 16 06/13/2015 T4, total , serum thyroxine T4 4.7 ug/dL 4.5-12 .0 Not Available [facility] (Lab) [address] [facility], [place], [address], 06/13/2015 05:19:09 06/12/1906/13/2015 CMP, serum or plasm a glucose, serum 98 mg/dL 65-99 Not Available [facility] ([facility]) [address] [facility], [place], [address], 06/13/2015 05:19:11 06/12/19 16 06/13/2015 CMP, serum or plasm a BUN 7 mg/dL 6-24 Not Available [facility]) [address] [facility], [place], [address], 06/13/2015 05:19:11 06/12/19 16 06/13/2015 CMP, serum or plasm a creatinine, serum 0.78 mg/dL 0.76-1 .27 Not Available [facility] (Lab) [address], [place], [address], 06/13/2015 05:19:11 06/12/19 16 06/13/2015 CMP, serum or plasm a eGFR if nonafricn AM 102 mL/mi n/1.7 3 >59 Not Available [facility] (Lab) [address], [place], [address], 06/13/2015 05:19:11 06/12/19 16 06/13/2015 CMP, serum or plasm a eGFR if 118 mL/mi n/1.7 3 >59 Not Available [facility] (Lab) [address], [place], [address], 06/13/2015 05:19:11 06/12/19 16 06/13/2015 CMP, serum or plasm a BUN/creatini ne ratio 9 9-20 Not Available [facility] (Lab) [address], [place], [address], 06/13/2015 05:19:11 06/12/19 16 06/13/2015 CMP, serum or plasm a sodium, serum 141 mmol/ L 134-14 4 Not Available [facility] (Lab) [address], [place], [address], 06/13/2015 05:19:11 06/12/1906/13/2015 CMP, serum or plasm a potassium, serum 4.5 mmol/ L 3.5-5. 2 Not Available [facility] (Lab) [address], [place], [address], 06/13/2015 05:19:11 06/12/1906/13/2015 CMP, serum or plasm a chloride, serum 101 mmol/ L 97-108 Not Available [facility] (Lab) [address] [place], [address], 06/13/2015 05:19:11 06/12/19 16 06/13/2015 CMP, serum or plasm a carbon dioxide, total 23 mmol/ L 18-29 Not Available [facility] (Lab) [address], [place], [address], 06/13/2015 05:19:11 06/12/19 16 06/13/2015 CMP, serum or plasm a calcium, serum 9.5 mg/dL 8.7-10 .2 Not Available [facility] (Lab) [address], [place], [address], 06/13/2015 05:19:11 06/12/1906/13/2015 CMP, serum or plasm a protein total serum 7.2 g/dL 6.0-8. 5 Not Available [facility] (Lab) [address], [place], [address], 06/13/2015 05:19:11 06/12/19 16 06/13/2015 CMP, serum or plasm a albumin, serum 4.5 g/dL 3.5-5. 5 Not Available [facility] (Lab) [address], [place], [address], 06/13/2015 05:19:11 06/12/19 16 06/13/2015 CMP, serum or plasm a globulin total 2.7 g/dL 1.5-4. 5 Not Available [facility] (Lab) [address] [place], [address], 06/13/2015 05:19:11 06/12/1906/13/2015 CMP, serum or plasm a A/G ratio 1.7 1.1-2. 5 Not Available [facility] (Lab) [address] [place], [address], 06/13/2015 05:19:11 06/12/19 16 06/13/2015 CMP, serum or plasm a bilirubin total <0.2 mg/dL 0.0-1. 2 Not Available [facility] (Lab) [address] [place], [address], 06/13/2015 05:19:11 06/12/19 16 06/13/2015 CMP, serum or plasm a alkaline phosphatase ser 105 IU/L 39-117 Not Available [facility] (Lab) [address] [place], [address], 06/13/2015 05:19:11 06/12/19 16 06/13/2015 CMP, serum or plasm a AST (SGOT) 20 IU/L 0-40 Not Available [facility] ([facility]) [address] [place], [address], 06/13/2015 05:19:11 06/12/19 16 06/13/2015 CMP, serum or plasm a ALT (SGPT) 18 IU/L 0-44 Not Available [facility] (Lab) [address] [place], [address], 06/13/2015 05:19:11 06/12/19 16 06/13/2015 TSH, serum or plasm a TSH 2.010 uIU/m L 0.450- 4.500 Not Available [facility] [address] [place], [address], 06/13/2015 05:19:12 06/12/1906/13/2015 PSA, serum or plasm a prostate specific [...] t be inter prete d as absol edagr evide nce of the prese nce or absen ce of truong mena se. Not Available [facility] (Lab) [address] [place], [address], 06/13/2015 05:19:13 06/12/19 16 06/13/2015 lipid panel w/ direc t LDL, serum cholesterol, total 215 mg/dL 100-19 9 high Not Available [facility] (Lab) [address] [place], [address], 06/13/2015 05:19:14 06/12/19 16 06/13/2015 lipid panel w/ direc t LDL, serum triglyceride s 73 mg/dL 0-149 Not Available [facility] (Lab) [address] [place], [address], 06/13/2015 05:19:14 06/12/19 16 06/13/2015 lipid panel w/ direc t LDL, serum HDL cholesterol 85 mg/dL >39 Accor ding to ATP-I II Guide lines , HDL-C >59 mg/dL is consi dered a negat phan risk facto r for CHD. Not Available [facility] (Lab) [address] [place], [address], 06/13/2015 05:19:14 06/12/19 16 06/13/2015 lipid panel w/ direc t LDL, serum VLDL cholesterol margarita 15 mg/dL 5-40 Not Available [facility] (Lab) [address] [place], [address], 06/13/2015 05:19:14 06/12/19 16 06/13/2015 lipid panel w/ direc t LDL, serum LDL cholesterol calc 115 mg/dL 0-99 high Not Available [facility] (Lab) [address] [place], [address], 06/13/2015 05:19:14 06/12/19 16 06/13/2015 lipid panel w/ direc t LDL, serum lipid calculation Not Available [facility] [address] [place], [address], 06/13/2015 05:19:14 09/22/19 15 09/21/2014 imagi ng/di agnos tic resul t No observ ation record ed. [address] , [place], [address], 09/30/2014 11:19:53 09/26/19 15 imagi ng/di agnos tic resul t No observ ation record ed. [email or web address] Not Available 2014 11:08:28 10/01/19 15 09/27/2014 imagi ng/di agnos tic resul t No observ ation record ed. [address] [place], [address], 10/03/2014 11:08:29 11/09/19 15 11/08/2014 imagi ng/di agnos tic resul t No observ ation record ed. [email or web address] Not Available 2014 15:10:11 12/02/19 15 12/01/2014 imagi ng/di agnos tic resul t No observ ation record ed. [email or web address] Not Available 2014 10:38:41 01/03/20 15 12/31/2014 imagi ng/di agnos tic resul t No observ ation record ed. [facility] (Rad) [address] [place], [address], 01/02/2015 09:50:17 01/07/20 15 01/05/2015 imagi ng/di agnos tic resul t No observ ation record ed. [email or web address] [facility], [place], [address], 01/06/2015 09:32:38 03/10/20 15 03/10/2015 imagi ng/di agnos tic resul t No observ ation record ed. [email or web address] [facility] (Rad) [address] [place], [address], 03/10/2015 12:50:58 03/11/20 15 03/11/2015 CV EKG 12 lead JORGE ALBERTOMOJGAN MD: KIRILL ANN MD 6905 ACCT: [id number] ADMIT/ SERVIC E DATE: DISCHA RGE DATE: : 1959 PT TYPE: ADM IN SEX: M ORD SITE: [address] TEST DATE: 2014-05 PAT NAME: MOJGAN ADAME MENT: CARD 40 PATIEN T ID: [id number] ROOM: [facility] GENDER : MALE TECHNI MARIA ISABEL: CDN : 01-[address] BY: CADE MOHAMUD S SETH ORDER NUMBER : [id number] 01SEB CJ Lu MD: FELIPE SELF MEASUR EMENTS INTERV ALS AXIS RATE: 145 P: 81 SD: 118 QRS: 19 QRSD: 82 T: 70 QT: 282 QTC: 438 INTERP RETIVE STATEM ENTS SINUS TACHYC ARDIA WITH SHORT SD INTERV AL WITH OCCASI ONAL VENTRI CULAR PREMAT URE COMPLE XES WITH OCCASI ONAL SUPRAV ENTRIC ULAR AMBER SEPTAL MYOCAR DIAL INFARC TION, PROBAB LY OLD NONSPE CIFIC ST SEGMEN T ABNORM ALITIE S, CANNOT RULE OUT ISCHEM IA ELECTR ONICAL LY SIGNED BY FELIPE SELF AT 17:03: 07 CDT [facility] [address] [facility] [address], [place], [address], 05/07/2015 04:08:47 03/11/20 15 03/11/2015 xr chest 1 view [email or web address] KELLYLINDSEY MOJGAN SELF 6905 ADMIT/ SERVIC E DATE: ACCT: [id number] DISCHA RGE DATE: : 1959 SEX: M ORD SITE: [facility] PT TYPE: ADM IN JING MUHAMMAD MD: KIRILL ANN MD STUDY DATE REPORT # ORDER # EXT ORDER ID [id number] 1.002 PROC CODE: [id number] ORT PROCED URE DESCRI PTION: XR CHEST 1 VIEW PORTAB LE I MPRESS ION: NO ACUTE INFILT RATE. EXAMIN ATION: PORTAB LE CHEST X-RAY 1 VIEW ACCESS ION: [id number] EXAM DATE/T TRAVON: 2014 8:36 PM CLINIC [...] SIGNED BY: MARYBEL CROUCH ER10/07/2014 8:54 PM [facility] One [facility], [place], [address], 05/07/2015 04:08:47 03/12/20 15 03/12/2015 MRI brain wo MOJGAN TABOR 6905 ADMIT/ SERVIC E DATE: ACCT: [id number] DISCHA RGE DATE: : 1959 SEX: M ORD SITE: [facility] PT TYPE: ADM IN ORDERI NG MD: KIRILL ANN MD STUDY DATE REPORT # ORDER # EXT ORDER ID [id number] 1.001 PROC CODE: BRNWOC PROCED URE DESCRI [...] BRAIN WITHOU T CONTRA ST. ACCESS ION: [id number] EXAM DATE/T TRAVON: 2014 11:23 AM CLINIC [...] SIGNED BY: CADE GRAY 11:51 AM build [facility] One [facility], [place], [address], 05/07/2015 04:08:47 06/19/19 16 06/19/2015 imagi ng/di agnos tic resul t No observ ation record ed. [facility] Not Available 2015 09:33:44 06/19/19 16 06/19/2015 imagi ng/di agnos tic resul t No observ ation record ed. [facility] (Lab) [address] [place] [address] [place], [address], 06/19/2015 09:33:44 06/19/19 16 06/19/2015 imagi ng/di agnos tic resul t No observ ation record ed. [facility] (Lab) [address] [place] [address] [place], [address], 06/20/2015 09:57:26 06/20/19 16 06/19/2015 imagi ng/di agnos tic resul t No observ ation record ed. [address] [place], [address], 06/20/2015 10:01:56 05/09/20 19 05/09/2019 US, les aldana id arter y No observ ation record ed. [facility] [address], [place], [address], 05/09/2019 17:59:20 Result Notes None recorded. Problems Name Problem SNOMED Code Status Onset Date Resolution Date Notes Provider Name and Address Organization Details Recorded Time Low back pain 510475126 Active Burke Ann MD Attn: Zulemalivia lu,[address] [facility], [place], [address], [place] [facility] 5 16:09:38 Essential hypertension 47441597 Active Burke Ann MD Attn: Austin tabitha,[address] [facility], [place], [address], [facility] 6 18:34:53 Anxiety 61604178 Active Burke Ann MD Attn: Austin tabitha,[address] [facility], [place], [address], [facility] 5 15:03:30 Laceration - injury 650890703 Active Burke Ann MD Attn: Austin tabitha,[address] [facility], [place], [address], [place] [facility] 5 15:31:20 Seizure disorder 101423933 Active Burke Ann MD Attn: Austin tabitha,[address] [facility], [place], [address], [facility] 6 18:34:53 Cerebrovascula r accident 033806035 Active Burke Ann MD Attn: Austin lu,[address] [facility], [place], [address], [place] [facility] 6 18:34:53 Insomnia 943601063 Active Burke Ann MD Attn: Austin lu,[address] [facility], [place], [address], [facility] 5 15:31:20 Problem Notes Documentation Provider Name and Address Organization Details Recorded Time Consult Note : MOJGAN TABOR MD: ACCT: [id number] ADMIT/SERVICE DATE: 06/25/16 DISCHARGE DATE: 06/25/16 : 1960 PT TYPE: DIS IN SEX: M ORD SITE: [facility] CHART DOCUMENT DATE OF CONSULTATION: 06/25/2016 HISTORY OF PRESENT ILLNESS: MOJGAN TABOR IS A 56-YEAR-OLD GENTLEMAN WITH A 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 HE HAD A SEIZURE STARTING 2015 AND REPLACEMENT ON KEPPRA. THERE IS SOME QUESTIONABLE COMPLIANCE. HE HAD 2 SEIZURES YESTERDAY, ONE AT HOME AND ONE IN THE ER AND SO ADMITTED. IN THE ER THEY GAVE HIM 1 G OF IV KEPPRA. HE HAD NO MORE SEIZURE. HE IS ALERT, AWAKE. HE STATES HE TAKES HIS MEDICATIONS REGULARLY. NEUROLOGIC EXAMINATION: DID REVEAL SOME MILD LEFT FIELD CUT. HE HAS SUBTLE WEAKNESS IN THE LEFT ARM BUT I DO NOT SEE ANY WEAKNESS IN THE LOWER LIMBS. GAIT EXAM DEFERRED. EXAM OF THE HEAD, NECK, AND SPINE UNREMARKABLE. IMPRESSION: SEIZURE DISORDER DUE TO OLD CEREBROVASCULAR ACCIDENT. I ASKED HIM TO INCREASE THE DOSE OF KEPPRA TO 1 G B.I.D. AND IF HE HAS MORE SEIZURES, TO INCREASE IT TO 1.5 G T.I.D. AFTER A WEEK. HE TOLD ME THAT HE HAS STOPPED ABUSING ALCOHOL. THANK YOU FOR THE CONSULT. ELECTRONICALLY SIGNED BY: JOAO CRAWFORD M.D. 06/26/2016 12:55 P JOAO CRAWFORD M.D. P #[id number] P/MA CC: DEBRA MUÑOZ M.D. KRISTEN REINEKE-PIPER, MD [facility] 06/29/2016 10:56:44 Medical Equipment None Reported. Allergies No known [...] Not Available Not Available Vitals Date Recorded Body temperature Body height Body mass index (BMI) Heart rate Respiratory rate Body weight Systolic And Diastolic Provider Name and Address Organization Details Last Updated DateTime 5 97.9 [degF] 175.26 cm 20.2 kg/m2 78 /min 18 /min 12513.1 5469 g 142/90 mm[Hg] Darlene Luan [facility] 5 13:46:55 Date Recorded Heart rate Body height Respiratory rate Body mass index (BMI) Body weight Body temperature Systolic And Diastolic Provider Name and Address Organization Details Last Updated DateTime 6 92 /min 170.18 cm 20 /min 21.5 kg/m2 40020.1 5469 g 98 [degF] 102/78 mm[Hg] Leonor Arauz MA [facility] 6 16:31:07 Date Recorded Respiratory rate Body weight Body temperature Body height Body mass index (BMI) Heart rate Systolic And Diastolic Provider Name and Address Organization Details Last Updated DateTime 5 22 /min 48400.9 29546 g 98.7 [degF] 170.18 cm 21.4 kg/m2 80 /min 148/94 mm[Hg] Leonor Arauz MA [facility] 5 15:57:48 Date Recorded Body height Body mass index (BMI) Body weight Heart rate Respiratory rate Body temperature Systolic And Diastolic Provider Name and Address Organization Details Last Updated DateTime 5 170.18 cm 21.5 kg/m2 51499.1 5469 g 88 /min 20 /min 98.2 [degF] 132/80 mm[Hg] Fior Pereyra MA [place] - [facility] 5 12:08:47 Social History None recorded. Functional Status None [...] Skin Problems N Anemia N Heart Attack ([place]) N Anxiety Disorder Y Diabetes N Muscle, Joint, or Bone Problems N Seizures/Epilepsy Y Acid Reflux (GERD) N Cancer N Stroke Y Asthma N Allergies N High Cholesterol N Hepatitis N Liver Disease N Headaches Y Heart Failure N Osteoporosis N Past Encounters Encounter ID Performer Location Encounter Start Date Encounter Closed Date Diagnosis/Indication Diagnosis SNOMED-CT Code Diagnosis ICD10 Code Diagnosis Note [id number] Burke Ann MD [facility] (Adult/Fa m Med) [address] [place] [address] 06/10/2014 13:26:21 06/10/2014 18:13:06 Laceration - injury 034593841 Seizure disorder 900091657 Cerebrovas cular accident 421955863 Insomnia 217487863 [id number] Burke Ann MD [facility] (Adult/Fa m Med) [address] [place] [address] 09/18/2014 14:45:50 09/18/2014 18:01:22 Seizure disorder 314599894 Anxiety 89073429 Low back pain 302522724 [id number] Burke Ann MD [facility] (Adult/Fa m Med) [address] [place] [address] 04/16/2015 11:24:38 04/16/2015 17:33:17 Essential hypertension 68046952 I10 Anxiety 73731892 F41.9 Seizure disorder 9407662 02 G40.909 [id number] Burke Ann MD [facility] (Adult/Fa m Med) [address] [place] [address] 06/12/2015 15:25:04 06/27/2015 12:04:51 Essential hypertension 73454637 I10 Seizure disorder 2650136 02 G40.909 Cerebrovas cular accident 927568060 I63.9 Health Concerns Section Related Observation LastModified by Organization Detai ls LastModified Time None Recorded Concern Status LastModified by Organization Details LastModified Time None Recorded Advance Directives Directive None Recorded Payers Insurance Date Sequence Insurance Name Policy Number Policy Gilbert Covered Member ID Gilbert Member ID Guarantor Name 07/02/2016 1 [facility] PRIOR TO 11/27/2020 (MEDICAID REPLACEMENT - HMO) Mojgan Tabor [id number] Mojgan Tabor Notes Date Note Type Note Provider Name and Address Organization Details Recorded Time 04/16/2015 text/html FOLLOW up care since stroke Burke Ann MD Attn: Accounting,[address] [place], [address], [facility] 04/16/2015 15:03:31
--- OUTSIDE RECORDS SUMMARY | 2024-12-13 07:37 | XMS_ITS | Encounter Summary ---
Author Organization [facility] Address [address] [place] [address] Care Team Providers Care [employer] Name Role Phone Frank Toure MD Unavailable Joyce Luevano NP Primary Care Provider Unavaila Marielena Adame MD Primary Care Provider [phone] Encounter Details Date Type Department Care Team (Late st Contact Info) Description 03/08/2022 Reva System[employer] Message Enc [facility] Medical Group Family Medicine - [address] [address] Joyce Luevano, BOUCHRA Vascular doctor [...] on filedocumented in this encounter Care Teams [employer] Relationship Specialty Start Date End Date Joyce Luevano NP [address] [place] [address] PCP - General NURSE PRACTITIONER 01/14/20 10/26/23 Marielena Smallwood MD [address] [place] [address] PCP - General FAMILY PRACTICE 10/27/23 Frank Toure MD [address] [place] [address] [employer] Spec CARDIOVASCULAR DISEASE 05/30/16 documented as of this encounter
--- OUTSIDE RECORDS SUMMARY | 2024-12-13 07:37 | XMS_ITS | Clinical Summary ---
Author Organization [facility] Address [address] [place] [address] Care Team Providers Care High Climber Name Role Phone Elizabeth Sullivan RN Unavailable [phone] Jack Arroyo MD Primary Care Provider Rosie marsh Source Comments [facility],non-owned Affiliates and Associated Physician Practices is amultiple site organization consisting of ambulatory clinics and hospital sitesin [place], [place], [place] and [place]. This disclosure is being madepursuant to the Care Everywhere program and may not contain all information available regarding this patient. Last updated 18.[facility] Allergies Active Allergy Reactions Criticality Noted Date Comments Clonazepam Psychiatric Medium 12/09/2021 hallucinations Medications * Be aware that medications may not be up to date on this document. Alwaysverify current medications with the patient. folic acid (Folvite) 1 MG tablet 1 (one) tablet by Enteral Tube route once daily 022 Active thiamine (Vitamin B-1) 100 MG tablet 1 (one) tablet by Enteral Tube route once daily 022 Active aspirin (Aspirin) 81 MG chew tablet 1 (one) tablet by Enteral Tube route once daily Active Calcium Carbonate Antacid (calcium carbonate, 500 mg elemental Ca/5 mL,) 1250 MG/5ML suspension 5 mL by Enteral Tube route every 6 hours as needed 023 Active Additional Information Patient taking differently:500 mg Enteral Tube EVERY 6 HOURS PRN,indigestion, Reason: Other, Reported on 11/29/2024 polyethylene glycol 3350 (Miralax) 17 g packet 17 (seventeen) g by Enteral Tube route 2 times daily 15 packet 023 Active bisacodyl (Dulcolax) 10 MG suppository Insert 1 (one) suppository into the rectum once daily as needed for Constipation (if no results from MOM) Active albuterol-ipra tropium (Duo-Neb) 0.5-2.5 (3) MG/3ML nebulizer solution Inhale 3 mL by mouth every 6 hours as needed for Shortness of Breath or Wheezing Active finasteride (Proscar) 5 MG tablet 1 (one) tablet by Per G Tube route once daily 024 Active Sodium Phosphates (FLEET ENEMA RE) Insert 1 Application into the rectum every 24 hours as needed (constipation if no results 1 day after suppository) Active magnesium hydroxide (Milk of Magnesia) 400 MG/5ML suspension Take 30 mL by mouth as needed for Constipation (at bedtime if no BM in 3 days) Active ondansetron (Zofran) 4 MG tablet 1 (one) tablet by Enteral Tube route every 6 hours as needed for Nausea/Vomiting Active levETIRAcetam (Keppra) 100 MG/ML oral solution 17.5 mL by Enteral Tube route 2 times daily for 90 days 1050 mL 2 025 Active acetaminophen (Tylenol) 325 MG tablet 2 (two) tablets by Enteral Tube route 3 times daily Maximum allowable Acetaminophen amount = 4 Grams (4000 mg) / 24 hours. Pt takes 160 mg/5mL liquid which is the same as 325 mg tab 025 Active Additional Information Patient taking differently:650 mg Enteral Tube 3 TIMES DAILY, Maximum allowable Acetaminophen amount = 4 Grams (4000 mg) / 24 hours.Per facility med list, pt takes the 650 mg tablets and takes 2 tablets via G-tube TID but the 650 mg tablet is CR (can't be crushed) so unsure if its 650 mg tablet or 650 mg total. Left as 650 mg total dose., Reason: Other, Reported on 11/29/2024 magnesium citrate (Citroma) 1.745 GM/30ML Take 296 mL by mouth once daily as needed (constipation (in the morning) if no results after enema) Active glycopyrrolate (Robinul) 2 MG tablet 1 (one) tablet by Per G Tube route every 8 hours Active guaiFENesin-de xtromethorphan (Robitussin DM) 100-10 MG/5ML syrupIndicatio ns:Cough 15 mL by Per G Tube route every 6 hours Reasons: Cough Active metoclopramide (Reglan) 10 MG tabletIndicati ons:Gastropare sis 1 (one) tablet by Per G Tube route 3 times daily Reasons: Delayed or Stopped Emptying of Stomach Active senna-docusate (Senokot-S) 8.6-50 MG tablet Take 1 (one) tablet by mouth once daily Active traMADol (Ultram) 25 MG tablet 1 (one) tablet by Per G Tube route every 6 hours as needed for Pain (moderate to severe pain) Active lacosamide (Vimpat) 10 MG/ML oral solution 15 mL by Per G Tube route 2 times daily 025 Active atorvastatin (Lipitor) 80 MG tablet 1 (one) tablet by Enteral Tube route at bedtime 025 Active amLODIPine (Norvasc) 10 MG tabletIndicati ons:Hypertensi on 1 (one) tablet by Enteral Tube route once daily Reasons: High Blood Pressure 025 Active metoprolol tartrate IR (Lopressor) 25 MG tablet 0.5 (one-half) tablet by Enteral Tube route 2 times daily 025 Active pantoprazole (Protonix) 40 MG packet 1 (one) packet by Enteral Tube route 2 times daily for 60 days 025 2024 Active artificial tears ophthalmic ointment Instill into both eyes every 8 hours 023 2024 Discontinued(L ist Clean-Up) metoprolol tartrate IR (Lopressor) 25 MG tablet 1 (one) tablet by Enteral Tube route 2 times daily 023 2024 Discontinued atorvastatin (Lipitor) 40 MG tablet 1 (one) tablet by Enteral Tube route at bedtime 30 tablet 023 2024 Discontinued guaiFENesin (Robitussin) 100 MG/5ML solution 15 mL by Enteral Tube route Every 6 Hours (03,09,15,21) 200 mL 023 2024 Discontinued(L ist Clean-Up) senna (Senokot) 8.6 MG tablet 1 (one) tablet by Enteral Tube route once daily 30 tablet 023 2024 Discontinued(L ist Clean-Up) cloBAZam (Onfi) 10 MG tablet Take 1 (one) tablet by mouth 2 times daily 60 tablet 5 024 2024 Discontinued(L ist Clean-Up) glycopyrrolate (Robinul) 1 MG tablet 1 (one) tablet by Per G Tube route 2 times daily 024 2024 Discontinued(L ist Clean-Up) lacosamide (Vimpat) 10 MG/ML oral solution 20 mL by Per G Tube route 2 times daily 2024 Discontinued pantoprazole (Protonix) 40 MG packet Take 1 (one) packet by mouth 2 times daily for 60 days 025 2024 Discontinued valproic acid (Depakene) 250 MG/5ML solution 10 mL by Per G Tube route every 8 hours 025 2024 Discontinued(L ist Clean-Up) pantoprazole EC (Protonix) 40 MG tablet Take 1 (one) tablet by mouth 2 times daily 025 2024 Discontinued(L ist Clean-Up) lacosamide (Vimpat) 10 MG/ML oral solution 15 mL by Per G Tube route 2 times daily 025 2024 Discontinued(D ose Adjustment) bisacodyl (Dulcolax) 10 MG suppository Insert 1 (one) suppository into the rectum once daily 2024 Discontinued(L ist Clean-Up) metoprolol tartrate IR (Lopressor) 25 MG tablet 0.5 (one-half) tablet by Enteral Tube route 2 times daily 025 2024 Discontinued(D ose Adjustment) metoprolol succinate XL 24hr (Toprol XL) 25 MG tablet Take 1 (one) tablet by mouth once daily 025 2024 Discontinued(D ose Adjustment) Active Problems Problem Noted Date Diagnosed Date Hypophosphatemia 12/09/2024 Assessment & Plan (12/10/2024 8:50 AM CDT): Moderate Protein Calorie malnutrition in context of chronic disease was present on admission. Diagnosis is made in consultation with clinical nutrition who have implemented a care plan. -s/p GJ placement on 710 -Monitor for refeeding Assessment & Plan (12/09/2024 8:52 AM CDT): Moderate Protein Calorie malnutrition in context of chronic disease was present on admission. Diagnosis is made in consultation with clinical nutrition who have implemented a care plan. -s/p GJ placement on 710 -Monitor for refeeding Hypokalemia 12/07/2024 Assessment & Plan (12/10/2024 8:50 AM CDT): Moderate Protein Calorie malnutrition in context of chronic disease was present on admission. Diagnosis is made in consultation with clinical nutrition who have implemented a care plan. -s/p GJ placement on 710 -Monitor for refeeding Assessment & Plan (12/09/2024 8:52 AM CDT): Moderate Protein Calorie malnutrition in context of chronic disease was present on admission. Diagnosis is made in consultation with clinical nutrition who have implemented a care plan. -s/p GJ placement on 710 -Monitor for refeeding Assessment & Plan (12/08/2024 9:16 AM CDT): Moderate Protein Calorie malnutrition in context of chronic disease was present on admission. Diagnosis is made in consultation with clinical nutrition who have implemented a care plan. -s/p GJ placement on 710 -Monitor for refeeding Assessment & Plan (12/07/2024 11:26 AM CDT): Moderate Protein Calorie malnutrition in context of chronic disease was present on admission. Diagnosis is made in consultation with clinical nutrition who have implemented a care plan. -s/p GJ placement on 710 -Monitor for refeeding Atypical chest pain 12/04/2024 Assessment & Plan (12/10/2024 8:50 AM CDT): -Had reproduce able chest pain -EKG w/o acute ischemia, trops neg x2 -TTE w/ EF 50-55% -Cardiology consulted -Increase statin 80mg qday -Tele Assessment & Plan (12/09/2024 8:52 AM CDT): -Had reproduce able chest pain -EKG w/o acute ischemia, trops neg x2 -TTE w/ EF 50-55% -Cardiology consulted -Increase statin 80mg qday -Tele Assessment & Plan (12/08/2024 9:16 AM CDT): -Had reproduce able chest pain -EKG w/o acute ischemia, trops neg x2 -TTE w/ EF 50-55% -Cardiology consulted -Increase statin 80mg qday -Tele Assessment & Plan (12/07/2024 11:26 AM CDT): -Had reproduce able chest pain -EKG w/o acute ischemia, trops neg x2 -TTE w/ EF 50-55% -Cardiology consulted -Increase statin 80mg qday -Tele Assessment & Plan (12/06/2024 11:47 AM CDT): -Had reproduce able chest pain -EKG w/o acute ischemia, trops neg x2 -TTE w/ EF 50-55% -Cardiology consulted -Increase statin 80mg qday -Tele Assessment & Plan (12/05/2024 9:35 AM CDT): -Had reproduce able chest pain -EKG w/o acute ischemia, trops neg x2 -TTE w/ EF 50-55% -Cardiology consulted -Increase statin 80mg qday -Tele Assessment & Plan (12/04/2024 1:02 PM CDT): -Had reproduce able chest pain -EKG w/o acute ischemia, trops neg x2 -TTE w/ EF 50-55% -Cardiology consulted -Increase statin 80mg qday -Tele Seizure 11/24/2024 Assessment & Plan (12/10/2024 8:50 AM CDT): -s/p cEEG, initially admitted to neuro service -Vimpat reduced due to elevated levels PLAN -Cont keppra 1750mg BID and vimpat 150mg BID -Seizure precautions Assessment & Plan (12/09/2024 8:52 AM CDT): -s/p cEEG, initially admitted to neuro service -Vimpat reduced due to elevated levels PLAN -Cont keppra 1750mg BID and vimpat 150mg BID -Seizure precautions Assessment & Plan (12/08/2024 9:16 AM CDT): -s/p cEEG, initially admitted to neuro service -Vimpat reduced due to elevated levels PLAN -Cont keppra 1750mg BID and vimpat 150mg BID -Seizure precautions Assessment & Plan (12/07/2024 11:26 AM CDT): -s/p cEEG, initially admitted to neuro service -Vimpat reduced due to elevated levels PLAN -Cont keppra 1750mg BID and vimpat 150mg BID -Seizure precautions Assessment & Plan (12/06/2024 11:47 AM CDT): -s/p cEEG, initially admitted to neuro service -Vimpat reduced due to elevated levels PLAN -Cont keppra 1750mg BID and vimpat 150mg BID -Seizure precautions Assessment & Plan (12/05/2024 9:35 AM CDT): -s/p cEEG, initially admitted to neuro service -Vimpat reduced due to elevated levels PLAN -Cont keppra 1750mg BID and vimpat 150mg BID -Seizure precautions Assessment & Plan (12/04/2024 1:02 PM CDT): -s/p cEEG, initially admitted to neuro service -Vimpat reduced due to elevated levels PLAN -Cont keppra 1750mg BID and vimpat 150mg BID -Seizure precautions Assessment & Plan (12/02/2024 11:59 AM CDT): #epilepsy #breakthrough seizure - continue keppra 1750mg BID and vimpat 150 mg BID (vimpat reduced due to elevated levels) - q4h neuro checks and seizure precautions #Atypical, reproducible chest-wall pain >reproducible likely costochondritis >Cardiology consulted >Trop 6, pending repeat >EKG: Q waves present but no acute signs of ischemia >Continue telemetry -TTE -Lidocaine patch prn #PEG dependence >Sister states there is concern that it is actually G tube instead of GJ tube. Imaging confirms this. -Consult IR on Tuesday morning for G tube conversion to GJ tube due to patient not tolerating feeds and aspiration risk. - nutrition on board for TF recs #Labile Hypertension -Amlodipine 10mg -Atorvastatin 40mg, aspirin 81mg - if further BP control needed for SBP>160, Add coreg 3.125 mg BID per cardio recs -Follow up lipid panel, hgba1c, tsh #Concern for aspiration PNA >sister was concerned that he had aspiration pneumonia prior to arrival here. Does not presently have signs of infection -CXR unremarkable Dispo: Pending IR eval for GJ tube replacement Diet: NPO, holding g tube feeds at this time but medications per G tube okay. DVT ppx: heparin q8h GI ppx: lansoprazole Code status: Full code [facility] Transfer Checklist: Reasons for Transfer to [facility]: Delay in Discharge/Difficult Discharge due to GJ tube exchange: Anticipating D/C on Tuesday. Brief Hospital Course: Bi Tabor is a 64 year old male with history of intractable epilepsy (L temporo-occipital lobes) CHRF s/p trach and PEG, HTN, HLD, PAD s/p L AKA, multiple strokes and vascular dementia who presented as a direct admit for increased seizure frequency. According to his sister, who is POA, they have been trying to get him in to see Dr. Raymundo but they have been having difficulty getting an appt. A month ago he went to [facility] where his abdomen was distended and he was nauseas and vomiting frequently. Initially discharged but then went to OSH the next day where they found that he had gallstones and pancreatitis thought to be secondary to valproic acid. During that admission he was also evaluated and found that his feeding tube was set up as a G-tube though it was reportedly supposed to be a GJ tube. Furthermore, according to his sister, he aspirated and got pneumonia during that stay. He was discharged November 22 with close follow up and antibacterials planned but the next day, November 23, he was nauseas and vomiting again. It was at that time that he reportedly had a breakthrough seizure with generalized shaking and right eye tonic deviation. They had initially planned to follow up with neurology outpatient after that but were told to go to the hospital and so he presented as a direct admit to neurology. Patient's home Keppra and vimpat were continued and cEEG conducted. cEEG was abnormal due to right hemispheric slowing and generalized slowing. Vimpat level was checked and found to be elevated, due to this and patient endorsing nausea the dose was decreased to 150mg BID. GJ tube was evaluated by imaging and was found to be functioning as a G tube. Patient not tolerating feeds with G tube. Consulting IR for conversion to GJ tube due to the ongoing nausea and aspiration risk. Wound care instructions (if applicable) Per wound jail Meds Being Held/Why (if any): Depakote held due to complication of pancreatitis. Follow-up Tasks (to be completed prior to/for discharge, e.g. labs, imaging, follow-ups): IR G to GJ tube conversion Your team's Preferred Contact Information for any potential follow up questions: Yue Rojas, resident [phone] [facility] Consultants that need to be Informed Prior to Discharge (especially for follow up appointment scheduling, please include any contact info): N/a Checklist Items: [x] Patient and/or family notified of potential transfer to [facility] [x] Patient added to [facility] Transfer List [x] Routine labs updated to 0 [x] Any specialty specific discharge instructions (wound care, weight bearing status, follow up, etc...) have been typed into the After Visit Summary (AVS) Section of the discharge tab Assessment & Plan (12/01/2024 1:13 PM CDT): #epilepsy #breakthrough seizure - continue keppra 1750mg BID and vimpat 150 mg BID (vimpat reduced due to elevated levels) - q4h neuro checks and seizure precautions #PEG dependence >Sister states there is concern that it is actually G tube instead of GJ tube. Imaging confirms this. -Consulting IR for G tube conversion to GJ tube due to patient not tolerating feeds and aspiration risk. - nutrition on board for TF recs #Hypertension -Started on amlodipine 5mg #Concern for aspiration PNA >sister was concerned that he had aspiration pneumonia prior to arrival here. Does not presently have signs of infection -CXR unremarkable Dispo: Pending IR eval for GJ tube replacement Diet: NPO, holding g tube feeds at this time DVT ppx: heparin q8h GI ppx: lansoprazole Code status: Full code [facility] Transfer Checklist: Reasons for Transfer to [facility]: Delay in Discharge/Difficult Discharge due to GJ tube exchange: Anticipating D/C on Tuesday. Brief Hospital Course: Bi Tabor is a 64 year old male with history of intractable epilepsy (L temporo-occipital lobes) CHRF s/p trach and PEG, HTN, HLD, PAD s/p L AKA, multiple strokes and vascular dementia who presented as a direct admit for increased seizure frequency. According to his sister, who is POA, they have been trying to get him in to see Dr. Raymundo but they have been having difficulty getting an appt. A month ago he went to [facility] where his abdomen was distended and he was nauseas and vomiting frequently. Initially discharged but then went to OSH the next day where they found that he had gallstones and pancreatitis thought to be secondary to valproic acid. During that admission he was also evaluated and found that his feeding tube was set up as a G-tube though it was reportedly supposed to be a GJ tube. Furthermore, according to his sister, he aspirated and got pneumonia during that stay. He was discharged November 22 with close follow up and antibacterials planned but the next day, November 23, he was nauseas and vomiting again. It was at that time that he reportedly had a breakthrough seizure with generalized shaking and right eye tonic deviation. They had initially planned to follow up with neurology outpatient after that but were told to go to the hospital and so he presented as a direct admit to neurology. Patient's home Keppra and vimpat were continued and cEEG conducted. cEEG was abnormal due to right hemispheric slowing and generalized slowing. Vimpat level was checked and found to be elevated, due to this and patient endorsing nausea the dose was decreased to 150mg BID. GJ tube was evaluated by imaging and was found to be functioning as a G tube. Patient not tolerating feeds with G tube. Consulting IR for conversion to GJ tube due to the ongoing nausea and aspiration risk. Wound care instructions (if applicable) Per wound jail Meds Being Held/Why (if any): Depakote held due to complication of pancreatitis. Follow-up Tasks (to be completed prior to/for discharge, e.g. labs, imaging, follow-ups): IR G to GJ tube conversion Your team's Preferred Contact Information for any potential follow up questions: Yue Rojas, resident [phone] Consultants that need to be Informed Prior to Discharge (especially for follow up appointment scheduling, please include any contact info): N/a Checklist Items: [x] Patient and/or family notified of potential transfer to [facility] [x] Patient added to [facility] Transfer List [x] Routine labs updated to 2200 [x] Any specialty specific discharge instructions (wound care, weight bearing status, follow up, etc...) have been typed into the After Visit Summary (AVS) Section of the discharge tab Assessment & Plan (11/30/2024 7:08 PM CDT): #epilepsy #breakthrough seizure - continue keppra 1750mg BID and vimpat 150 mg BID (vimpat reduced due to elevated levels) - q4h neuro checks and seizure precautions #PEG dependence >Sister states there is concern that it is actually G tube instead of GJ tube. Imaging confirms this. -Consulting IR for G tube conversion to GJ tube due to patient not tolerating feeds and aspiration risk. - nutrition on board for TF recs #Concern for aspiration PNA >sister was concerned that he had aspiration pneumonia prior to arrival here. Does not presently have signs of infection -CXR unremarkable Dispo: Pending IR eval for GJ tube replacement Diet: NPO, holding g tube feeds at this time DVT ppx: heparin q8h GI ppx: lansoprazole Code status: Full code Assessment & Plan (11/27/2024 1:46 PM CDT): Acute metabolic encephalopathy 08/06/2024 Moderate protein-calorie malnutrition [...] 10/17/2022 Chronic respiratory failure with hypoxia 023 Assessment & Plan (12/10/2024 8:50 AM CDT): -Trach/PEG dependent -Cont trach collar Assessment & Plan (12/09/2024 8:52 AM CDT): -Trach/PEG dependent -Cont trach collar Assessment & Plan (12/08/2024 9:16 AM CDT): -Trach/PEG dependent -Cont trach collar Assessment & Plan (12/07/2024 11:26 AM CDT): -Trach/PEG dependent -Cont trach collar Assessment & Plan (12/06/2024 11:47 AM CDT): -Trach/PEG dependent -Cont trach collar Assessment & Plan (12/05/2024 9:35 AM CDT): -Trach/PEG dependent -Cont trach collar Assessment & Plan (12/04/2024 1:02 PM CDT): -Trach/PEG dependent -Cont trach collar Atelectasis, right 07/05/2022 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 GI Concerns: None Nutrition Focused Physical Assessment: Loss of Subcutaneous Fat Orbital: Moderate Buccal: Moderate Muscle Loss Temples (Temporalis Muscle): Mild Clavicles (Pectoralis & Deltoids): Mild Shoulders (Deltoids): Moderate Interosseous Muscle: (Unable to assess per pt request) Scapula (Latissimus dorsi, Trapezius, Deltoids): (Pt unable to participate) Thigh (Quadriceps): Moderate Knee: Moderate (Unable to assess bilaterally d/t L AKA) Calf (Gastrocnemius): Mild (Unable to assess bilaterally d/t L AKA) Assessment & Plan (12/10/2024 8:50 AM CDT): Moderate Protein Calorie malnutrition in context of chronic disease was present on admission. Diagnosis is made in consultation with clinical nutrition who have implemented a care plan. -s/p GJ placement on 12/06 -Monitor for refeeding Assessment & Plan (12/09/2024 8:52 AM CDT): Moderate Protein Calorie malnutrition in context of chronic disease was present on admission. Diagnosis is made in consultation with clinical nutrition who have implemented a care plan. -s/p GJ placement on 12/06 -Monitor for refeeding Assessment & Plan (12/08/2024 9:16 AM CDT): Moderate Protein Calorie malnutrition in context of chronic disease was present on admission. Diagnosis is made in consultation with clinical nutrition who have implemented a care plan. -s/p GJ placement on 12/06 -Monitor for refeeding Assessment & Plan (12/07/2024 11:26 AM CDT): Moderate Protein Calorie malnutrition in context of chronic disease was present on admission. Diagnosis is made in consultation with clinical nutrition who have implemented a care plan. -s/p GJ placement on 12/06 -Monitor for refeeding Assessment & Plan (12/06/2024 11:47 AM CDT): Moderate Protein Calorie malnutrition in context of chronic disease was present on admission. Diagnosis is made in consultation with clinical nutrition who have implemented a care plan. -TO have GJ placed today, will resume TF -Monitor for refeeding w/ labs tonight Assessment & Plan (12/05/2024 9:35 AM CDT): Moderate Protein Calorie malnutrition in context of chronic disease was present on admission. Diagnosis is made in consultation with clinical nutrition who have implemented a care plan. Assessment & Plan (12/04/2024 1:02 PM CDT): Moderate Protein Calorie malnutrition in context of chronic disease was present on admission. Diagnosis is made in consultation with clinical nutrition who have implemented a care plan. Abdominal pain, generalized 05/30/2022 Lethargy 05/30/2022 History of stroke 05/30/2022 Bacteremia 03/11/2022 Sepsis due to pneumonia 03/11/2022 Ulcer of left foot 03/11/2022 PAD (peripheral artery disease) 03/11/2022 Severe protein-calorie malnutrition 03/11/2022 Seizure disorder 12/30/2021 COVID-19 04/14/2021 History of CVA (cerebrovascular accident) 2020 Assessment & Plan (12/10/2024 8:50 AM CDT): -Cont ASA, amlodipine 10mg qday, metop tart 12.5mg BID and lipitor 80mg qday -Cannot switch metop to succinate as cannot be crushed to go in tube Assessment & Plan (12/09/2024 8:52 AM CDT): -Cont ASA, amlodipine 10mg qday, metop tart 12.5mg BID and lipitor 80mg qday -Cannot switch metop to succinate as cannot be crushed to go in tube Assessment & Plan (12/08/2024 9:16 AM CDT): -Cont ASA, amlodipine 10mg qday, metop tart 12.5mg BID and lipitor 80mg qday -Cannot switch metop to succinate as cannot be crushed to go in tube Assessment & Plan (12/07/2024 11:26 AM CDT): -Cont ASA, amlodipine 10mg qday, metop tart 12.5mg BID and lipitor 80mg qday -Cannot switch metop to succinate as cannot be crushed to go in tube Assessment & Plan (12/06/2024 11:47 AM CDT): -Cont ASA, amlodipine 10mg qday, metop tart 12.5mg BID and lipitor 80mg qday -Cannot switch metop to succinate as cannot be crushed to go in tube Assessment & Plan (12/05/2024 9:35 AM CDT): -Cont ASA, amlodipine 10mg qday, metop tart 12.5mg BID and lipitor 80mg qday -Cannot switch metop to succinate as cannot be crushed to go in tube Assessment & Plan (12/04/2024 1:02 PM CDT): -Cont ASA, amlodipine 10mg qday, metop tart 12.5mg BID and lipitor 80mg qday -Cannot switch metop to succinate as cannot be crushed to go in tube Cognitive communication deficit 08/25/2020 Dysphagia, oropharyngeal phase 08/25/2020 Seizures 08/13/2020 Cerebrovascular accident 06/13/2019 Insomnia 06/13/2019 Low back pain 06/13/2019 Epilepsy, unspecified, not i ntractable, without status epilepticus 05/25/2019 Assessment & Plan (12/10/2024 8:50 AM CDT): -s/p cEEG, initially admitted to neuro service -Vimpat reduced due to elevated levels PLAN -Cont keppra 1750mg BID and vimpat 150mg BID -Seizure precautions Assessment & Plan (12/09/2024 8:52 AM CDT): -s/p cEEG, initially admitted to neuro service -Vimpat reduced due to elevated levels PLAN -Cont keppra 1750mg BID and vimpat 150mg BID -Seizure precautions Assessment & Plan (12/08/2024 9:16 AM CDT): -s/p cEEG, initially admitted to neuro service -Vimpat reduced due to elevated levels PLAN -Cont keppra 1750mg BID and vimpat 150mg BID -Seizure precautions Assessment & Plan (12/07/2024 11:26 AM CDT): -s/p cEEG, initially admitted to neuro service -Vimpat reduced due to elevated levels PLAN -Cont keppra 1750mg BID and vimpat 150mg BID -Seizure precautions Assessment & Plan (12/06/2024 11:47 AM CDT): -s/p cEEG, initially admitted to neuro service -Vimpat reduced due to elevated levels PLAN -Cont keppra 1750mg BID and vimpat 150mg BID -Seizure precautions Assessment & Plan (12/05/2024 9:35 AM CDT): -s/p cEEG, initially admitted to neuro service -Vimpat reduced due to elevated levels PLAN -Cont keppra 1750mg BID and vimpat 150mg BID -Seizure precautions Assessment & Plan (12/04/2024 1:02 PM CDT): -s/p cEEG, initially admitted to neuro service -Vimpat reduced due to elevated levels PLAN -Cont keppra 1750mg BID and vimpat 150mg BID -Seizure precautions Hemiplegia and hemiparesis f ollowing cerebral infarction affecting right non-dominant side 05/25/2019 Alzheimer's disease with early onset 05/17/2019 Paroxysmal tachycardia, unspecified 05/16/2019 Osteoporosis 11/22/2018 Alcohol abuse, uncomplicated 08/13/2015 Essential (primary) hypertension 07/24/2015 Assessment & Plan (12/10/2024 8:50 AM CDT): -Cont ASA, amlodipine 10mg qday, metop tart 12.5mg BID and lipitor 80mg qday -Cannot switch metop to succinate as cannot be crushed to go in tube Assessment & Plan (12/09/2024 8:52 AM CDT): -Cont ASA, amlodipine 10mg qday, metop tart 12.5mg BID and lipitor 80mg qday -Cannot switch metop to succinate as cannot be crushed to go in tube Assessment & Plan (12/08/2024 9:16 AM CDT): -Cont ASA, amlodipine 10mg qday, metop tart 12.5mg BID and lipitor 80mg qday -Cannot switch metop to succinate as cannot be crushed to go in tube Assessment & Plan (12/07/2024 11:26 AM CDT): -Cont ASA, amlodipine 10mg qday, metop tart 12.5mg BID and lipitor 80mg qday -Cannot switch metop to succinate as cannot be crushed to go in tube Assessment & Plan (12/06/2024 11:47 AM CDT): -Cont ASA, amlodipine 10mg qday, metop tart 12.5mg BID and lipitor 80mg qday -Cannot switch metop to succinate as cannot be crushed to go in tube Assessment & Plan (12/05/2024 9:35 AM CDT): -Cont ASA, amlodipine 10mg qday, metop tart 12.5mg BID and lipitor 80mg qday -Cannot switch metop to succinate as cannot be crushed to go in tube Assessment & Plan (12/04/2024 1:02 PM CDT): -Cont ASA, amlodipine 10mg qday, metop tart 12.5mg BID and lipitor 80mg qday -Cannot switch metop to succinate as cannot be crushed to go in tube Benign neoplasm of prostate 06/26/2015 Other specified rheumatoid arthritis, unspecifie d site 06/26/2015 Hyperlipidemia 04/14/2015 Overview (06/13/2019): Last Assessment & Plan: Continue home meds and monitor Assessment & Plan (12/10/2024 8:50 AM CDT): -Cont ASA, amlodipine 10mg qday, metop tart 12.5mg BID and lipitor 80mg qday -Cannot switch metop to succinate as cannot be crushed to go in tube Assessment & Plan (12/09/2024 8:52 AM CDT): -Cont ASA, amlodipine 10mg qday, metop tart 12.5mg BID and lipitor 80mg qday -Cannot switch metop to succinate as cannot be crushed to go in tube Assessment & Plan (12/08/2024 9:16 AM CDT): -Cont ASA, amlodipine 10mg qday, metop tart 12.5mg BID and lipitor 80mg qday -Cannot switch metop to succinate as cannot be crushed to go in tube Assessment & Plan (12/07/2024 11:26 AM CDT): -Cont ASA, amlodipine 10mg qday, metop tart 12.5mg BID and lipitor 80mg qday -Cannot switch metop to succinate as cannot be crushed to go in tube Assessment & Plan (12/06/2024 11:47 AM CDT): -Cont ASA, amlodipine 10mg qday, metop tart 12.5mg BID and lipitor 80mg qday -Cannot switch metop to succinate as cannot be crushed to go in tube Assessment & Plan (12/05/2024 9:35 AM CDT): -Cont ASA, amlodipine 10mg qday, metop tart 12.5mg BID and lipitor 80mg qday -Cannot switch metop to succinate as cannot be crushed to go in tube Assessment & Plan (12/04/2024 1:02 PM CDT): -Cont ASA, amlodipine 10mg qday, metop tart 12.5mg BID and lipitor 80mg qday -Cannot switch metop to succinate as cannot be crushed to go in tube 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 Therapeutic procedure Resolved Problems [...] organ dysfunction 03/08/2022 11/09/2022 Status epilepticus 12/30/2021 5 Weakness 08/22/2020 12/30/2021 Urinary tract infection 08/20/2020 [...] Encounters Date Type Department Care Team Description 12/12/2024 Telephone Transitional Care at [address] [phone] Tiffani Moreno, barber apprentice 11/26/2024 4:27 PM CDT - 12/11/2024 5:48 PM CDT Hospital Encounter [facility] [address] [place] [phone] Brian Lawrence MD Atilgan, Deniz, MD Hazam, Randa, MD Jain, Aman, DO Arshad, Iqra, MD Neurology Discharge Disposition: Nursing Facility:Medicaid 11/14/2024 10:45 AM CDT Office Visit [facility] - Vascular Surgery [address] [place] [address], [place] [address] Anna Membreno MD Pain in extremity, unspecified extremity (Primary Dx) 11/14/2024 Travel 11/05/2024 Telephone [facility] - Centralized Scheduling [address] [place] [address] Alden Hurtado MD Appointment 10/30/2024 Telephone [facility] - Centralized Scheduling [facility] [place] [phone] Sean Raymundo DO Appointment 10/22/2024 Telephone [facility] [address] [place] [phone] Cade Guthrie MD General (OSH Transfer) 10/17/2024 2:47 PM CDT - 10/18/2024 10:58 AM CDT Emergency [facility] [address] [place] [phone] Caio Elder MD Lorber, Steven A, MD Abdominal pain, unspecified abdominal location (Primary Dx); Lung nodule Discharge Disposition: Home or Self Care 10/17/2024 Travel from Last 3 Months Immunizations Immunization Administration Dates Next Due [employer] primary monoval ent 12+ yr 0.3mL Purple [...] Not hard at all 08/06/2024 [facility] - Occupational Stress [...] in a mcfp (including now)? No 06/19/2023 Housing Stability Vital Sign Answer Vinay e Recorded In the last 12 months, was t here a time when you were not able to pay the mortgage or rent on time? No 08/06/2024 In the past 12 months, how m any times have you moved where you were living? 1 08/06/2024 At any time in the past 12 m [facility], were you homeless or living in a mcfp (including now)? No 08/06/2024 Sex and Gender Information Value Date Recorded Sex Assigned at Not on file Legal Sex Male 5:07 PM [employer] Gender Identity Not on file Sexual Orientation Not on file Last Filed Vital Signs Vital Sign Reading Time Taken Comments Blood Pressure 140/91 12/11/2024 4:04 PM CDT Pulse 98 12/11/2024 4:04 PM CDT Temperature 37 C (98.6 F) 12/11/2024 4:04 PM CDT Respiratory Rate 16 12/11/2024 4:00 PM CDT Oxygen Saturation 97% 12/11/2024 4:04 PM CDT Inhaled Oxygen Concentration 28% 12/11/2024 4 :00 PM CDT Weight 72.6 kg (160 lb 0.9 oz) 11/27/2024 9:00 A M CDT Height 175.3 cm (5' 9.02) 11/27/2024 9:00 AM CD T Body Mass Index 23.62 11/27/2024 9:00 AM CDT Plan of Treatment Upcoming Encounters Date Type Department Care Team (Late st Contact Info) Description 01/14/2025 2:00 PM CDT Office Visit [facility] - GI [address] [place] [phone] 03/06/2025 10:00 AM CDT Office Visit [facility] - Neurology [address] [place] [phone] Saloni King, LATHE PULLER-ORDER PULLER [facility] [place] [address] Health Maintenance Due Date Last Done Comments [...] 07/02/2020, 06/11/2020 DEPRESSION SCREENING 05/30/2024 INFLUENZA VACCINE (#1) 2025 , 03/16/2021, 03/07/2020, Additional history exists DTAP/TDAP/TD VACCINES (3 - Td or Tdap) 06/06/2027 06/06/2017, 03/23/2017 HIV SCREENING Completed 09/01/2022, 04/0 01/2019, 01/30/2018, [...] Comments GLUCOSE - POINT OF CARE Routine 12/11/2024 4:58 PM CDT GLUCOSE - POINT OF CARE Routine 12/11/2024 12:15 PM CDT GLUCOSE - POINT OF CARE Routine 12/11/2024 6:41 AM CDT MAGNESIUM BLOOD Routine 12/11/2024 12:28 AM CDT RENAL FUNCTION PANEL Routine 12/11/2024 12:28 AM CDT GLUCOSE - POINT OF CARE Routine 12/10/2024 11:52 PM CDT GLUCOSE - POINT OF CARE Routine 12/10/2024 4:43 PM CDT GLUCOSE - POINT OF CARE Routine 12/10/2024 11:47 AM CDT GLUCOSE - POINT OF CARE Routine 12/10/2024 7:58 AM CDT GLUCOSE - POINT OF CARE Routine 12/10/2024 1:33 AM CDT MAGNESIUM BLOOD Routine 12/09/2024 11:51 PM CDT RENAL FUNCTION PANEL Routine 12/09/2024 11:51 PM CDT GLUCOSE - POINT OF CARE Routine 12/09/2024 4:22 PM CDT GLUCOSE - POINT OF CARE Routine 12/09/2024 11:29 AM CDT GLUCOSE - POINT OF CARE Routine 12/09/2024 6:14 AM CDT MAGNESIUM BLOOD Routine 12/08/2024 11:36 PM CDT RENAL FUNCTION PANEL Routine 12/08/2024 11:36 PM CDT GLUCOSE - POINT OF CARE Routine 12/08/2024 11:28 PM CDT GLUCOSE - POINT OF CARE Routine 12/08/2024 6:02 PM CDT GLUCOSE - POINT OF CARE Routine 12/08/2024 11:57 AM CDT MAGNESIUM BLOOD Routine 12/08/2024 6:29 AM CDT RENAL FUNCTION PANEL Routine 12/08/2024 6:29 AM CDT GLUCOSE - POINT OF CARE Routine 12/08/2024 6:11 AM CDT GLUCOSE - POINT OF CARE Routine 12/08/2024 12:07 AM CDT GLUCOSE - POINT OF CARE Routine 12/07/2024 4:10 PM CDT GLUCOSE - POINT OF CARE Routine 12/07/2024 11:11 AM CDT EKG 12-LEAD Routine 12/07/2024 8:47 AM CDT Atypical chest pain GLUCOSE - POINT OF CARE Routine 12/07/2024 6:10 AM CDT PHOSPHORUS BLOOD Timed 12/07/2024 12:2 9 AM CDT MAGNESIUM BLOOD Timed 12/07/2024 12:29 AM CDT BASIC METABOLIC PANEL (CALCIUM TOTAL) Timed 12/07/2024 12:29 AM CDT PT-INR [facility] Routine 12/07/2024 12:29 AM CDT PEG tube malfunction (HCC) IR PERC G TO GJ TUBE EXCHANGE Routine 12/06/2024 11:22 AM CDT Aspiration into airway, subsequent encounter G tube feedings (HCC) HEMOGLOBIN A1C Routine 12/03/2024 11:31 AM CDT POTASSIUM BLOOD Routine 12/03/2024 8:37 AM CDT TROPONIN-I HIGH SENSITIVE STAT 12/03/2024 8:37 AM CDT TYPE + SCREEN PANEL Routine 12/03/2024 5 :20 AM CDT COMPREHENSIVE METABOLIC PANEL AM Draw 12/03/2024 5:20 AM CDT PTT [facility] AM Draw 12/03/2024 5:20 AM CDT CBC W AUTO DIFFERENTIAL AM Draw 12/03/2024 5:20 AM CDT TSH AM Draw 12/03/2024 5:20 AM CDT TROPONIN-I HIGH SENSITIVE STAT 12/03/2024 5:20 AM CDT ECHO COMPLETE W CONTRAST STAT 12/02/2024 1:09 PM CDT Chest pain, unspecified type COMPREHENSIVE METABOLIC PANEL STAT 12/02/2024 2:45 AM CDT GLUCOSE - POINT OF CARE Routine 12/02/2024 12:38 AM CDT B-TYPE NATRIURETIC PEPTIDE STAT 12/01/2024 10:40 PM CDT CBC W AUTO DIFFERENTIAL STAT 12/01/2024 10:40 PM CDT XR CHEST 1VW PORTABLE STAT 12/01/2024 10:35 PM CDT Chest pain, unspecified type TROPONIN-I HIGH SENSITIVE STAT 12/01/2024 10:28 PM CDT EKG 12-LEAD STAT 12/01/2024 10:00 PM CDT Chest pain, unspecified type XR CHEST 1VW PORTABLE STAT 11/29/2024 11:06 PM CDT Seizure (HCC) XR ABDOMEN KUB PORTABLE STAT 11/29/2024 11:06 PM CDT Seizure (HCC) CBC W AUTO DIFFERENTIAL STAT 11/29/2024 9:50 PM CDT GLUCOSE - POINT OF CARE Routine 11/28/2024 5:16 AM CDT XR ABDOMEN KUB PORTABLE STAT 11/27/2024 12:26 PM CDT G tube feedings (HCC) PHOSPHORUS BLOOD Timed 11/27/2024 2:47 AM CDT BASIC METABOLIC PANEL (CALCIUM TOTAL) Timed 11/27/2024 2:47 AM CDT MAGNESIUM BLOOD Timed 11/27/2024 2:47 AM CDT VALPROIC ACID LEVEL STAT 11/27/2024 2 :46 AM CDT LACOSAMIDE STAT 11/27/2024 2:46 AM CDT LEVETIRACETAM LEVEL STAT 11/27/2024 2 :46 AM CDT CBC W/O DIFFERENTIAL Timed 11/26/2024 10:59 PM CDT XR CHEST 1VW PORTABLE Routine 11/26/2024 8:43 PM CDT Aspiration into airway, subsequent encounter CARDIAC EKG ORDER 10/18/2024 11: 02 AM [...] AUTO DIFFERENTIAL STAT 10/17/2024 4:08 PM CDT HEPATITIS C AB SCREEN RFLX NAAT QUANT Routine 09/01/2022 2:05 AM CDT HIV-1 HIV-2 ANTIBODY + HIV P24 AG PANEL Routine 09/01/2022 2:05 AM CDT from Last 3 Months or Most Recently Relevant to Health Maintenance Results * GLUCOSE - POINT OF CARE (12/11/2024 4:58 PM CDT) Only the most recent of21 resultswithin the time period is included. [facility] Glucose WB/POC 95 70 - 99 mg/dL 12/11/2024 5:01 PM CDT [facility] Specimen Type Arterial/C apillary 12/11/2024 5:01 PM CDT [facility] Blood BLOOD SPECIMEN / Unknown 12/11/2024 4:58 PM CDT 12/11/2024 5:01 PM CDT Marianne Daniels MD LAB - POINT OF CARE ORDERABLES F inal Result [facility] [address] [place] [address], [facility] [phone] * (ABNORMAL) RENAL FUNCTION PANEL (12/11/2024 12:28 AM CDT) Only the most recent of4 resultswithin the time period is included. [facility] BUN 10 7 - 26 mg/dL 12/11/2024 1:14 AM CDT [facility] Creatinine 0.49(L) 0.71 - 1.16 mg/dL 12/11/2024 1:14 AM CDT [facility] Sodium 140 136 - 145 mmol/L 12/11/2024 1:14 AM [facility] Potassium 4.1 3.5 - 4.5 mmol/L 12/11/2024 1:14 AM [facility] Chloride 110(H) 98 - 107 mmol/L 12/11/2024 1:14 AM [facility] CO2 29 22 - 29 mmol/L 12/11/2024 1:14 AM [facility] Glucose 121(H) 70 - 99 mg/dL 12/11/2024 1:14 AM [facility] Albumin 3.0(L) 3.4 - 5.0 g/dL 12/11/2024 1:14 AM [facility] Calcium 8.6 8.4 - 10.2 mg/dL 12/11/2024 1:14 AM [facility] Phosphorus 3.0 2.8 - 5.1 mg/dL 12/11/2024 1:14 AM [facility] Anion Gap 1(L) 6 - 16 12/11/2024 1:14 AM [facility] BUN/Creatinine Ratio 20 7 - 23 12/11/2024 1:14 AM [facility] Osmolality Calculated 290 275 - 295 mOsm/kg 12/11/2024 1:14 AM [facility] eGFR by CKD-EPI >90 >=90 mL/min/1.7 3 m2 12/11/2024 1:14 AM [facility] Comment:Estimated Glomerular Filtration Rate (eGFR) calculated using the CKD-EPI Creatinine Equation (2020), per the National Kidney Foundation and [place] [employer] recommendations. Blood BLOOD SPECIMEN / Unknown Venipuncture / Unknown 12/11/2024 12:28 AM CDT 12/11/2024 12:48 AM CDT us Herminio oMrrison DO LAB - CHEMISTRY ORDERABLES Final Result [facility] [address] [place] [address], [facility] [phone] * MAGNESIUM BLOOD (12/11/2024 12:28 AM CDT) Only the most recent of6 resultswithin the time period is included. [facility] Magnesium 1.8 1.6 - 2.6 mg/dL 12/11/2024 1:14 AM CDT [facility] Blood BLOOD SPECIMEN / Unknown Venipuncture / Unknown 12/11/2024 12:28 AM CDT 12/11/2024 12:48 AM CDT Herminio Morrison DO LAB - CHEMISTRY ORDERABLES Final Result [facility] [address] [place] [address], [facility] [phone] * EKG 12-Lead (12/07/2024 8:47 AM CDT) Only the most recent of2 resultswithin the time period is included. [facility] Ventricular Rate 106 BPM [facility] Atrial Rate 106 BPM [facility] P-R Interval 156 ms [facility] QRS Duration ms 82 ms [facility] Q-T Interval ms 362 ms [facility] QTC Calculation (Bezet) 480 ms [facility] Calculated P [place] 56 degrees [facility] Calculated R [place] -22 degrees [facility] Calculated T [place] 86 degrees [facility] Interpretation EKG SINUS TACHYCARDIA SEPTAL INFARCT (CITED ON OR BEFORE 09-OCT-2022) INFERIOR INFARCT (CITED ON OR BEFORE 27-JUL-2024) ABNORMAL ECG WHEN COMPARED WITH ECG OF 01-DEC-2024 22:00, PREMATURE VENTRICULAR COMPLEXES ARE NO LONGER PRESENT QUESTIONABLE CHANGE IN INITIAL FORCES OF ANTEROSEPTAL LEADS ST NO LONGER ELEVATED IN ANTERIOR LEADS Confirmed by ALISON OLSEN, ASHLYN GONZALES ([id number]) on 12/08/2024 3:56:27 PM [facility] 12/07/2024 8:47 AM CDT 12/08/2024 3:56 PM CDT Herminio Morrison DO ECG ORDERABLES Edited Result - Final Performing Organization Address City/[facility]/ZIP Co de Phone Number [facility] * PT-INR [facility] (12/07/2024 12:29 AM CDT) [facility] PT 14.1 12.1 - 14.8 Seconds 12/07/2024 1:13 AM [facility] INR 1.1 See Comment 12/07/2024 1:13 AM [facility] Comment:The suggested therap eutic range for standard coumadin (warfarin) therapy is an INR of 2.0-3.0. For high-risk patients (Mechanical Mitral Valve Prosthesis, etc.), the suggested prophylactic therapeutic range is an INR of 2.5-3.5. Blood BLOOD SPECIMEN / Unknown Venipuncture / Unknown 12/07/2024 12:29 AM CDT 12/07/2024 12:52 AM CDT Gaurav Leroy PA-C LAB - COAGULATION ORDERA BLES Final Result [facility] [address] [place] [address], [facility] [phone] * (ABNORMAL) BASIC METABOLIC PANEL (CALCIUM TOTAL) (12/07/2024 12:29 AM CDT) Only the most recent of2 resultswithin the time period is included. [facility] BUN <5(L) 7 - 26 mg/dL 12/07/2024 1:17 AM [facility] Creatinine 0.51(L) 0.71 - 1.16 mg/dL 12/07/2024 1:17 AM [facility] Sodium 141 136 - 145 mmol/L 12/07/2024 1:17 AM [facility] Potassium 2.7(L) 3.5 - 4.5 mmol/L 12/07/2024 1:17 AM [facility] Chloride 111(H) 98 - 107 mmol/L 12/07/2024 1:17 AM [facility] CO2 25 22 - 29 mmol/L 12/07/2024 1:17 AM [facility] Glucose 83 70 - 99 mg/dL 12/07/2024 1:17 AM [facility] Calcium 8.7 8.4 - 10.2 mg/dL 12/07/2024 1:17 AM [facility] Anion Gap 5(L) 6 - 16 12/07/2024 1:17 AM [facility] BUN/Creatinine Ratio <10 7 - 23 12/07/2024 1:17 AM T [facility] Osmolality Calculated <288 275 - 295 mOsm/kg 12/07/2024 1:17 AM [facility] eGFR by CKD-EPI >90 >=90 mL/min/1.7 3 m2 12/07/2024 1:17 AM [facility] Comment:Estimated Glomerular Filtration Rate (eGFR) calculated using the CKD-EPI Creatinine Equation (2020), per the National Kidney Foundation and [place] [employer]ph[employer] recommendations. Blood BLOOD SPECIMEN / Unknown Venipuncture / Unknown 12/07/2024 12:29 AM CDT 12/07/2024 12:51 AM CDT Herminiochrystal Morrison DO LAB - CHEMISTRY ORDERABLES Final Result Performing Organization Address City/[facility]/ZIP Co de Phone Number [address] [address], [place] [phone] * (ABNORMAL) PHOSPHORUS BLOOD (12/07/2024 12:29 AM CDT) Only the most recent of2 resultswithin the time period is included. Phosphorus 2.7(L) 2.8 - 5.1 mg/dL 12/07/2024 1:17 AM CDT [facility] Blood BLOOD SPECIMEN / Unknown Venipuncture / Unknown 12/07/2024 12:29 AM CDT 12/07/2024 12:51 AM CDT us Herminio Morrison DO LAB - CHEMISTRY ORDERABLES Final Result [address] [address], [place] [phone] * IR Perc G To GJ Tube Exchange (12/06/2024 11:22 AM CDT) Anatomical Region Laterality Modality Abdomen X-Ray Angiograph y 12/06/2024 4:35 PM CDT Impressions 12/09/2024 9:09 PM CDT Impression: Successful conversion of the existing gastrostomy catheter for a new 18-Czech balloon-retention gastrojejunostomy catheter under fluoroscopic guidance, as [...] and call the IR service. I, Dr. Arvizu, was present and performed/supervised the entire procedure. I, David Arvizu MD have personally reviewed and interpreted this examination/study. > Interpreting Provider: David Arvizu MD on 12/09/2024 9:09 PM Narrative 12/09/2024 9:09 PM CDT History: 64-year-old male with existing gastrostomy tube for moderate protein - calorie malnutrition Operators: 1.Dr. Arvizu, Attending Physician 2.Dr. Michael Griffin, Resident Physician Anesthesia: None Procedure: Existing gastrostomy tube exchange for 18 Czech gastrojejunostomy tube Start time: 1107 End time: 1120 Sedation initiated time: N/A Fluoroscopic time: 0.8 minutes Contrast: 30 mL of Isovue-300 Procedure in detail: The procedure, risks, and possible complications were explained to the patient in detail, and informed consent was obtained. The patient was placed supine on the procedure table. A horticultural manager film of abdomen was obtained, which showed an existing properly placed gastrostomy tube. Contrast was hand injected through the existing gastrostomy catheter and showed opacification of the gastric lumen. A 0.035 inch Glidewire was advanced into the stomach through the existing catheter which was subsequently removed over the wire. Glidewire was advanced into the jejunum under fluoroscopic guidance. A new 18-Czech gastrojejunostomy catheter was then advanced over the [...] complications associated with the procedure. Procedure Note David Arvizu MD - 12/09/2024 History: 64-year-old male with existing gastrostomy tube for moderate protein - calorie malnutrition Operators: 1.Dr. Arvizu, Attending Physician 2.Dr. Michael Griffin, Resident Physician Anesthesia: None Procedure: Existing gastrostomy tube exchange for 18 Czech gastrojejunostomy tube Start time: 1107 End time: 1120 Sedation initiated time: N/A Fluoroscopic time: 0.8 minutes Contrast: 30 mL of Isovue-300 Procedure in detail: The procedure, risks, and possible complications were explained to the patient in detail, and informed consent was obtained. The patient was placed supine on the procedure table. A horticultural manager film of abdomen wasobtained, which showed an existing properly placed gastrostomy tube. Contrast was hand injected through the existing gastrostomy catheter and showed opacification of the gastric lumen. A 0.035 inch Glidewire was advanced into the stomach through the existing catheter which was subsequently removed over the wire. Glidewire was advanced into thejejunum under fluoroscopic guidance. A new 18-Czech gastrojejunostomy catheterwas then advanced over the wire under fluoroscopic guidance. The catheterwas secured by balloon insufflation. Hand injection of contrast through the gastric port confirmedintraluminal position within the stomach. Hand injection of contrast through thejejunal port confirmed intraluminal position within the jejunum. Steriledressing was applied. The patient tolerated the procedure well and was transferred to theholding area in stable condition. There were no immediate complicationsassociated with the procedure. Impression: Successful conversion of the existing gastrostomy catheterfor a new 18-Czech balloon-retention gastrojejunostomy catheter under fluoroscopic guidance, as [...] feedingand call the IR service. I, Dr. Arvizu, was present and performed/supervised the entire procedure. I, David Arvizu MD have personally reviewed andinterpreted this examination/study. > Interpreting Provider: David Arvizu MD on 12/09/2024 9:09PM us Lula FERNANDEZ IR ORDERABLES Final Result * HEMOGLOBIN A1C (12/03/2024 11:31 AM CDT) Hemoglobin A1c 4.9 <=5.6 % 12/03/2024 3:17 PM CDT [facility] Estimated Average Glucose 94 mg/dL 12/03/2024 3:17 PM CDT [facility] Comment: HbA1c Interpretation: Normal : < 5.7% Pre-diabetes: 5.7-6.4% Diabetes: Equal to or greater than 6.5% Test results diagnostic of diabetes should be repeated for confirmation. Treatment target values recommended by ADA and other clinical organizations should be used to evaluate metabolic control in patients. Reference: [place] [employer] Association, Standards of Care in Diabetes -2020 In patients 70 years and older consider HbA1c target range of 7.0-7.5% (Reference: Lukas Matamoros et al. JAMDA. 2012) The Sebia assay for the measurement of HbA1c is a National Glycohemoglobin Standardization Program (NGSP) certified method. Blood BLOOD SPECIMEN / Unknown 12/03/2024 11:31 AM CDT 12/03/2024 11:31 AM CDT us Ulises Galindo MD LAB - CHEMISTRY ORDERABLES Lulu l Result [facility] [address] [place] [address], [facility] [phone] * TROPONIN-I HIGH SENSITIVE (12/03/2024 8:37 AM CDT) Only the most recent of4 resultswithin the time period is included. Troponin I High Sensitive 7 <=35 ng/L 12/03/2024 9:41 AM CDT [facility] Blood BLOOD SPECIMEN / Unknown Lab Venipuncture / Unknown 12/03/2024 8:37 AM CDT 12/03/2024 9:07 AM CDT us Neha Palomino MD LAB - CHEMISTRY ORDERABLES F inal Result Performing Organization Address [facility] Co de Phone Number [address] [address], [place] [phone] * POTASSIUM BLOOD (12/03/2024 8:37 AM CDT) [facility] Potassium 3.8 3.5 - 4.5 mmol/L 12/03/2024 9:31 AM CDT [facility] Blood BLOOD SPECIMEN / Unknown Lab Venipuncture / Unknown 12/03/2024 8:37 AM CDT 12/03/2024 9:07 AM CDT us Paige Brewster MD LAB - CHEMISTRY ORDERABLES Final Result Performing Organization Address [facility] de Phone Number [address] [address], [place] [phone] * (ABNORMAL) PTT [facility] (12/03/2024 5:20 AM CDT) [facility] APTT 42.5(H) 23.0 - 38.4 Seconds 12/03/2024 11:06 AM CDT [facility] Comment:Suggested therapeuti c range for full dose I.V. unfractionated heparin therapy for venous thromboembolism is 71 to 109 seconds. Blood BLOOD SPECIMEN / Unknown Venipuncture / Unknown 12/03/2024 5:20 AM CDT 12/03/2024 10:22 AM CDT us Ulises Galindo MD LAB - COAGULATION ORDERABLES Fi nal Result Performing Organization Address [facility] Co de Phone Number [address] [address], [place] [phone] * TYPE + SCREEN PANEL (12/03/2024 5:20 AM CDT) [facility] Antibody Screen NEG 11:26 AM CDT [facility] ABO Rh O POS 12/03/2024 11:26 AM T [facility] Blood Bank BLOOD SPECIMEN / Unknown Venipuncture / Unknown 12/03/2024 5:20 AM CDT 12/03/2024 10:22 AM CDT us Ulises Galindo MD LAB - BLOOD BANK ORDERABLES Fin al Result [facility] [address] [place] [address], [facility] [phone] * (ABNORMAL) CBC W AUTO DIFFERENTIAL (12/03/2024 5:20 AM CDT) Only the most recent of4 resultswithin the time period is included. WBC 5.7 4.0 - 10.7 x10E9/L 12/03/2024 10:47 AM [facility] RBC Count 4.17(L) 4.30 - 5.80 x10E12/L 12/03/2024 10:47 AM [facility] Hemoglobin 13.4 13.3 - 17.5 g/dL 12/03/2024 10:47 AM [facility] Hematocrit 39.4 38.7 - 51.1 % 12/03/2024 10:47 AM [facility] MCV 94.5 80.0 - 98.0 fL 12/03/2024 10:47 AM [facility] MCH 32.1 26.7 - 33.6 pg 12/03/2024 10:47 AM [facility] MCHC 34.0 31.7 - 36.3 g/dL 12/03/2024 10:47 AM [facility] RDW-CV 13.2 11.3 - 14.8 % 12/03/2024 10:47 AM [facility] Platelet Count 303 150 - 420 x10E9/L 12/03/2024 10:47 AM [facility] MPV 12.2(H) 7.8 - 11.4 fL 12/03/2024 10:47 AM [facility] Neutrophil % 45.9 41.0 - 74.0 % 12/03/2024 10:47 AM [facility] Lymphocyte % 40.4 17.0 - 47.0 % 12/03/2024 10:47 AM [facility] Monocyte % 8.2 3.0 - 11.0 % 12/03/2024 10:47 AM [facility] Eosinophil % 4.7 0.0 - 7.0 % 12/03/2024 10:47 AM [facility] Basophil % 0.4 0.0 - 1.6 % 12/03/2024 10:47 AM [facility] Immature Granulocytes % 0.4 0.0 - 1.0 % 12/03/2024 10:47 AM [facility] Neutrophil Absolute 2.62 1.60 - 7.50 x10E9/L 12/03/2024 10:47 AM [facility] Lymphocyte Absolute 2.30 1.00 - 4.40 x10E9/L 12/03/2024 10:47 AM [facility] Monocyte Absolute 0.47 0.15 - 1.00 x10E9/L 12/03/2024 10:47 AM [facility] Eosinophil Absolute 0.27 0.00 - 0.60 x10E9/L 12/03/2024 10:47 AM [facility] Basophil Absolute 0.02 0.00 - 0.13 x10E9/L 12/03/2024 10:47 AM [facility] Blood BLOOD SPECIMEN / Unknown Venipuncture / Unknown 12/03/2024 5:20 AM CDT 12/03/2024 10:22 AM CDT us Ulises Galindo MD LAB - HEMATOLOGY ORDERABLES Fin al Result [facility] [address] [place] [address], [facility] [phone] * (ABNORMAL) COMPREHENSIVE METABOLIC PANEL (12/03/2024 5:20 AM CDT) Only the most recent of3 resultswithin the time period is included. BUN <5(L) 7 - 26 mg/dL 12/03/2024 11:07 AM [facility] Creatinine 0.48(L) 0.71 - 1.16 mg/dL 12/03/2024 11:07 AM [facility] Sodium 141 136 - 145 mmol/L 12/03/2024 11:07 AM [facility] Potassium 3.2(L) 3.5 - 4.5 mmol/L 12/03/2024 11:07 AM [facility] Chloride 110(H) 98 - 107 mmol/L 12/03/2024 11:07 AM [facility] CO2 26 22 - 29 mmol/L 12/03/2024 11:07 AM [facility] Glucose 83 70 - 99 mg/dL 12/03/2024 11:07 AM [facility] Calcium 9.2 8.4 - 10.2 mg/dL 12/03/2024 11:07 AM [facility] Protein Total 7.1 6.0 - 8.3 g/dL 12/03/2024 11:07 AM [facility] Albumin 3.4 3.4 - 5.0 g/dL 12/03/2024 11:07 AM [facility] Bilirubin Total 0.4 0.2 - 1.2 mg/dL 12/03/2024 11:07 AM [facility] Alkaline Phosphatase 116 40 - 150 U/L 12/03/2024 11:07 AM [facility] ALT 23 5 - 55 U/L 12/03/2024 11:07 AM [facility] AST 21 5 - 34 U/L 12/03/2024 11:07 AM [facility] Anion Gap 5(L) 6 - 16 12/03/2024 11:07 AM [facility] BUN/Creatinine Ratio <10 7 - 23 12/03/2024 11:07 AM [facility] Osmolality Calculated <288 275 - 295 mOsm/kg 12/03/2024 11:07 AM [facility] Albumin/Globulin Ratio 0.9(L) 1.1 - 2.3 12/03/2024 11:07 AM [facility] eGFR by CKD-EPI >90 >=90 mL/min/1.7 3 m2 12/03/2024 11:07 AM CDT [facility] Comment:Estimated Glomerular Filtration Rate (eGFR) calculated using the CKD-EPI Creatinine Equation (2020), per the National Kidney Foundation and [place] [employer] Nephrology recommendations. Blood BLOOD SPECIMEN / Unknown Venipuncture / Unknown 12/03/2024 5:20 AM CDT 12/03/2024 10:22 AM CDT us Ulises Galindo MD LAB - CHEMISTRY ORDERABLES Lulu l Result [address] [address], [facility] [phone] * TSH (12/03/2024 5:20 AM CDT) TSH 1.497 0.350 - 4.940 uIU/mL 12/03/2024 11:22 AM CDT [facility] Blood BLOOD SPECIMEN / Unknown Venipuncture / Unknown 12/03/2024 5:20 AM CDT 12/03/2024 10:22 AM CDT us Ulises Galindo MD LAB - CHEMISTRY ORDERABLES Lulu l Result Performing Organization Address City/[facility]/ZIP Co de Phone Number [address] [address], [place] [phone] * ECHO COMPLETE W CONTRAST (12/02/2024 1:09 PM CDT) IVSd 2D 0.877 cm SSM CV FUJ I PACS LVIDd 3.655 cm SSM CV FUJ I PACS LVIDs 2.653 cm SSM CV FUJ I PACS LVOT diam 1.994 cm SSM CV FUJ I PACS LVPWd 1.178 cm SSM CV FUJ I PACS LV biplane EF 58.485 % SSM CV FUJI PACS LV A2C EF 55.116 % SSM CV FUJ I PACS LV A4C EF 62.245 % SSM CV FUJ I PACS LV EDV A2C 77.083 ml SSM CV FU JI PACS LV EDV A4C 87.607 ml SSM CV FU JI PACS LV ESV A2C 34.598 ml SSM CV FU JI PACS LV ESV A4C 33.076 ml SSM CV FU JI PACS LVOT pk grad 2.528 mmHg [facility] pk igyg 79.495 cm/s SSM CV F U PACS LVOT VTI 13.89 cm SSM CV [facility] I PACS RV-rodriguez basal diam 2.681 cm SSM CV [facility] PACS RVIDd 2.653 cm SSM CV [facility] I PACS RVOT diam Doppler 2.3 cm SS M CV [facility] PACS RVOT pk iggy 64.734 cm/s SSM CV F U PACS RVOT VTI 11.567 cm SSM CV [facility] I PACS LA size 3.834 cm SSM CV [facility] I PACS LA vol BP 34.054 ml SSM CV [facility] I PACS RA area 12.635 cm SSM CV [facility] PACS AV area pk iggy 2.087 cm SSM CV [facility] PACS AV area cont VTI 2.007 cm SSM CV [facility] PACS AV pk grad 5.661 mmHg SSM CV FU PACS AV mn grad 2.828 mmHg SSM CV FU JI PACS AV pk iggy 118.965 cm/s SSM CV [facility] I PACS AV VTI 21.609 cm SSM CV [facility] I PACS MV A pk iggy 74.128 cm/s SSM CV F U PACS MV E pk iggy 47.388 cm/s SSM CV F U PACS MV E' lateral iggy 6.233 cm/s SS M CV [facility] PACS MV mn grad 1.201 mmHg SSM CV FU PACS MV VTI 20.977 cm SSM CV [facility] I PACS PV pk iggy 99.619 cm/s SSM CV [facility] I PACS PV VTI 16.226 cm SSM CV [facility] I PACS TAPSE 1.903 cm SSM CV [facility] I PACS TR pk iggy 259.7 cm/s SSM CV [facility] I PACS Ascending aorta 3.088 cm [facility] AV area index 1.065 cm /m SSM CV FUJI PACS LA vol index 0.018 l/m SSM CV FUJI PACS Dimensionless Index 0.643 unitless SSM CV FUJI PACS Myocardial strain charge 2 unitless SSM CV FUJI PACS Anatomical Region Laterality Modality Ultrasound 12/02/2024 12:3 5 PM CDT Narrative 12/02/2024 3:19 PM CDT Summary * The pulmonary artery systolic pressure is normal, 35 mmHg. * The left ventricular mass is normal with concentric remodeling. * The left ventricle is normal in size with normal systolic function and an estimated ejection fraction of 50-55% by visual estimate. Left ventricular wall motion is normal. * The left ventricular diastolic function is normal. * Right ventricle is normal in size with normal systolic function. * No significant valvular abnormalities. Patient Info Name: Bi Tabor Age: 64 years : 1960 Gender: Male Ht: 69 in Wt: 160 lb BSA: 1.88 m2 HR: 69 bpm BP: 162 / 83 mmHg Heart Rhythm: Sinus Arrhythmia Exam Date: 12/02/2024 12:35 PM Patient Status: I/P Study Site: [facility] Primary Location: [facility] Info Technical Quality: Adequate Exam Type: ECHO COMPLETE W CONTRAST Indications R07.9 - Chest pain, unspecified type Procedure(s) * A complete 2D, color Doppler, spectral Doppler, and M-Mode transthoracic echocardiogram was performed. Contrast/Agitated Saline Contrast / Saline: Definity Amount: 1.00 ml Administered By: Saeed Nesbitt Reaction to Contrast: no Staff Referring Physician: Ulises Galindo Ordering Provider: Ulises Galindo Attending Physician: Ulises Galindo Convertible Sofa Bedspring Tester: Saeed Nesbitt Left Ventricle The left ventricular mass is normal with concentric remodeling. The left ventricle is normal in size. Left ventricular segmental wall motion is normal. Left ventricular systolic function is normal with an estimated ejection fraction of 50-55% by visual estimate. The left ventricular diastolic function is normal. Right Ventricle The right ventricle is normal in size. Right ventricular systolic function is normal. Left Atrium The left atrium is normal in size with a left atrial volume index of 18 ml/m2 by BP MOD. Right Atrium The right atrium is normal in size. Atrial Septum Intact interatrial septum visualized by 2D and color Doppler imaging. Aortic Valve The aortic valve is trileaflet. There is no aortic valve stenosis. There is no aortic valve regurgitation. Pulmonic Valve The pulmonic valve is normal. There is no pulmonic valve stenosis. There is mild pulmonic regurgitation. Mitral Valve The mitral valve is normal. There is no mitral valve stenosis. There is mild mitral valve regurgitation. Tricuspid Valve The tricuspid valve is normal. There is mild tricuspid valve regurgitation. The pulmonary artery systolic pressure is normal, 35 mmHg. Inferior Vena Cava The inferior vena cava is not well visualized and therefore the right atrial pressure is assumed to be 8 mmHg. There is < 50% collapse of the IVC upon inspiration with an estimated right atrial pressure of 8 mmHg. Pericardium/Pleural There is no pericardial effusion. Aorta The aortic root at the sinus of Valsalva is normal in size. The ascending aorta is normal in size. Measurements Left Ventricular Outflow Tract Name Value Normal LVOT 2D LVOT Diameter 2.0 cm LVOT Area 3.1 cm2 LVOT Doppler LVOT Peak Velocity 0.8 m/s LVOT Peak Gradient 3 mmHg LVOT Mean Velocity 51.77 cm/s LVOT Mean Gradient 1 mmHg LVOT VTI 13.9 cm LVOT VTI/AV VTI Ratio 0.6 LVOT Stroke Volume 43 ml LVOT Stroke Volume Index 23 ml/m2 35-58 LVOT CO 3.0 l/min LVOT CI 1.6 l/min/m2 Pulmonic Valve Name Value Normal PV 2D RVOT Diameter (2D) 2.3 cm 1.7-2.7 RVOT Doppler RVOT Peak Velocity 0.6 m/s RVOT Peak Gradient 2 mmHg RVOT Mean Gradient 1 mmHg PV Doppler PV Peak Velocity 1.0 m/s PV Peak Gradient 4 mmHg PV Mean Gradient 2 mmHg PV Area (Cont Eq VTI) 2.96 cm2 PV Area Index (Cont Eq VTI) 1.57 cm2/m2 PV Area (Cont Eq Iggy) 2.7 cm2 PV Area Index (Cont Eq Iggy) 1.43 cm2/m2 Mitral Valve Name Value Normal MV Doppler MV Peak Gradient 4 mmHg MV Mean Gradient 1 mmHg MV DI (VTI) 1.51 MV Area (Cont Eq VTI) 2.07 cm2 MV Diastolic Function MV E Peak Velocity 0.5 m/sec MV A Peak Velocity 0.7 m/sec MV E/A 0.6 MV Decel Time (PW) 217 ms MV A Wave Duration 97 ms MV Annular TDI MV Septal e' Velocity 4 cm/s >=8 MV E/e' (Septal) 12 <=8 MV Lateral e' Velocity 6 cm/s >=10 MV E/e' (Lateral) 8 <=8 MV e' Average 5 cm/s MV E/e' (Average) 10 Tricuspid Valve Name Value Normal TV Regurgitation Doppler TR Peak Velocity 2.6 m/s TR Peak Gradient 27 mmHg Estimated PAP/RSVP RA Pressure 8 mmHg <=5 PA Systolic Pressure 35 mmHg <35 RV Systolic Pressure 35 mmHg <36 TV Annular TDI TV Lateral Leonora s' Velocity 10 cm/s 10-19 Aorta Name Value Normal Ascending Aorta Asc Ao Diameter 3.1 cm 2.2-3.8 Asc Ao Diameter Index 1.6 cm/m2 1.1-1.9 Septae/Shunt/Generic Name Value Normal Qp/Qs Qp/Qs 1.1 Aortic Valve Name Value Normal AV Doppler AV Peak Velocity 1.19 m/s AV Peak Gradient 6 mmHg AV Mean Gradient 3 mmHg AV VTI 22 cm AV Area (Cont Eq VTI) 2.01 cm2 >=2.00 AV Area (Cont Eq Iggy) 2.09 cm2 AV DI (VTI) 0.64 AV DI (Iggy) 0.67 AV Regurgitation 2D LVOT Area 3.12 cm2 Ventricles Name Value Normal LV Dimensions 2D/MM IVS Diastolic Thickness (2D) 0.9 cm 0.6-1.0 LVID Diastole (2D) 3.7 cm 4.2-5.8 LVPW Diastolic Thickness (2D) 1.2 cm 0.6-1.0 IVS Systolic Thickness (2D) 1.0 cm LVID Systole (2D) 2.7 cm 2.5-4.0 LVPW Systolic Thickness (2D) 1.3 cm LV Mass (2D Cubed) 108 g 88-224 LV Mass Index (2D Cubed) 58 g/m2 49-115 Relative Wall Thickness (2D) 0.64 <=0.42 LV Fractional Shortening/Ejection Fraction 2D/MM LV Fractional Shortening (2D) 25 % 25-43 LV EF (2D Teichmargotz) 54 % 52-72 LV Diastolic Volume (4C MOD) 88 ml LV EF (4C MOD) 62 % LV Diastolic Volume (2C MOD) 77 ml LV EF (2C MOD) 55 % LV Diastolic Volume (BP MOD) 85 ml 62-150 LV Diastolic Volume Index (BP MOD) 45 ml/m2 34-74 LV Systolic Volume (BP MOD) 35 ml 21-61 LV Systolic Volume Index (BP MOD) 19 ml/m2 11-31 LV EF (BP MOD) 58 % 52-72 LV Diastolic Length (4C) 7.5 cm LV Systolic Length (4C) 6.2 cm LV Stroke Volume (4C MOD) 55 ml RV Dimensions 2D/MM RVID Diastole (2D) 2.7 cm 2.5-3.5 RVID Systole (2D) 2.4 cm RV Basal Diastolic Dimension 2.7 cm 2.5-4.1 RV Diastolic Length (4C) 5.5 cm 5.9-8.3 TAPSE 1.9 cm >=1.7 Atria Name Value Normal LA Dimensions LA Dimension (2D) 3.8 cm 3.0-4.1 LA Dimen Index (2D) 2.0 cm/m2 LA Volume (BP MOD) 34 ml LA Volume Index (BP MOD) 18 ml/m2 16-34 RA Dimensions RA Area (4C) 13 cm2 <=18 RA Area (4C) Index 7 cm2/m2 Report Signatures Finalized by Abimbola Flores MD on 12/02/2024 03:18 PM Procedure Note [place], Abimbola J, MD - 12/02/2024 Summary * The pulmonary artery systolic pressure is normal, 35 mmHg. * The left ventricular mass is normal with concentric remodeling. * The left ventricle is normal in size with normal systolic function andan estimated ejection fraction of 50-55% by visual estimate. Leftventricular wall motion is normal. * The left ventricular diastolic function is normal. * Right ventricle is normal in size with normal systolic function. * No significant valvular abnormalities. Patient Info Name: Bi Tabor Age: 64 years : 1960 Gender: Male Ht: 69 in Wt: 160 lb BSA: 1.88 m2 HR: 69 bpm BP: 162 / 83 mmHg Heart Rhythm: Sinus Arrhythmia Exam Date: 12/02/2024 12:35 PM Patient Status: I/P Study Site: [facility] Primary Location: [facility] EStud Info Technical Quality: Adequate Exam Type: ECHO COMPLETE W CONTRAST Indications R07.9 - Chest pain, unspecified type Procedure(s) * A complete 2D, color Doppler, spectral Doppler, and M-Modetransthoracic echocardiogram was performed. Contrast/Agitated Saline Contrast / Saline: Definity Amount: 1.00 ml Administered By: Saeed Nesbitt Reaction to Contrast: no Staff Referring Physician: Ulises Galindo Ordering Provider: Ulises Galindo Attending Physician: Ulises Galindo Convertible Sofa Bedspring Tester: Saeed Nesbitt Left Ventricle The left ventricular mass is normal with concentric remodeling. Theleft ventricle is normal in size. Left ventricular segmental wall motion isnormal. Left ventricular systolic function is normal with an estimated ejection fraction of 50-55% by visual estimate. The left ventricular diastolicfunction is normal. Right Ventricle The right ventricle is normal in size. Right ventricular systolicfunction is normal. Left Atrium The left atrium is normal in size with a left atrial volume index of18 ml/m2 by BP MOD. Right Atrium The right atrium is normal in size. Atrial Septum Intact interatrial septum visualized by 2D and color Doppler imaging. Aortic Valve The aortic valve is trileaflet. There is no aortic valve stenosis. Thereis no aortic valve regurgitation. Pulmonic Valve The pulmonic valve is normal. There is no pulmonic valve stenosis. Thereis mild pulmonic regurgitation. Mitral Valve The mitral valve is normal. There is no mitral valve stenosis. There ismild mitral valve regurgitation. Tricuspid Valve The tricuspid valve is normal. There is mild tricuspid valveregurgitation. The pulmonary artery systolic pressure is normal, 35 mmHg. Inferior Vena Cava The inferior vena cava is not well visualized and therefore the rightatrial pressure is assumed to be 8 mmHg. There is < 50% collapse of the IVCupon inspiration with an estimated right atrial pressure of 8 mmHg. Pericardium/Pleural There is no pericardial effusion. Aorta The aortic root at the sinus of Valsalva is normal in size. Theascending aorta is normal in size. Measurements Left Ventricular Outflow Tract Name Value Normal LVOT 2D LVOT Diameter 2.0 cm LVOT Area 3.1 cm2 LVOT Doppler LVOT Peak Velocity 0.8 m/s LVOT Peak Gradient 3 mmHg LVOT Mean Velocity 51.77 cm/s LVOT Mean Gradient 1 mmHg LVOT VTI 13.9 cm LVOT VTI/AV VTI Ratio 0.6 LVOT Stroke Volume 43 ml LVOT Stroke Volume Index 23 ml/m2 35-58 LVOT CO 3.0 l/min LVOT CI 1.6 l/min/m2 Pulmonic Valve Name Value Normal PV 2D RVOT Diameter (2D) 2.3 cm 1.7-2.7 RVOT Doppler RVOT Peak Velocity 0.6 m/s RVOT Peak Gradient 2 mmHg RVOT Mean Gradient 1 mmHg PV Doppler PV Peak Velocity 1.0 m/s PV Peak Gradient 4 mmHg PV Mean Gradient 2 mmHg PV Area (Cont Eq VTI) 2.96 cm2 PV Area Index (Cont Eq VTI) 1.57 cm2/m2 PV Area (Cont Eq Iggy) 2.7 cm2 PV Area Index (Cont Eq Iggy) 1.43 cm2/m2 Mitral Valve Name Value Normal MV Doppler MV Peak Gradient 4 mmHg MV Mean Gradient 1 mmHg MV DI (VTI) 1.51 MV Area (Cont Eq VTI) 2.07 cm2 MV Diastolic Function MV E Peak Velocity 0.5 m/sec MV A Peak Velocity 0.7 m/sec MV E/A 0.6 MV Decel Time (PW) 217 ms MV A Wave Duration 97 ms MV Annular TDI MV Septal e' Velocity 4 cm/s >=8 MV E/e' (Septal) 12 <=8 MV Lateral e' Velocity 6 cm/s >=10 MV E/e' (Lateral) 8 <=8 MV e' Average 5 cm/s MV E/e' (Average) 10 Tricuspid Valve Name Value Normal TV Regurgitation Doppler TR Peak Velocity 2.6 m/s TR Peak Gradient 27 mmHg Estimated PAP/RSVP RA Pressure 8 mmHg <=5 PA Systolic Pressure 35 mmHg <35 RV Systolic Pressure 35 mmHg <36 TV Annular TDI TV Lateral Leonora s' Velocity 10 cm/s 10-19 Aorta Name Value Normal Ascending Aorta Asc Ao Diameter 3.1 cm 2.2-3.8 Asc Ao Diameter Index 1.6 cm/m2 1.1-1.9 Septae/Shunt/Generic Name Value Normal Qp/Qs Qp/Qs 1.1 Aortic Valve Name Value Normal AV Doppler AV Peak Velocity 1.19 m/s AV Peak Gradient 6 mmHg AV Mean Gradient 3 mmHg AV VTI 22 cm AV Area (Cont Eq VTI) 2.01 cm2 >=2.00 AV Area (Cont Eq Iggy) 2.09 cm2 AV DI (VTI) 0.64 AV DI (Iggy) 0.67 AV Regurgitation 2D LVOT Area 3.12 cm2 Ventricles Name Value Normal LV Dimensions 2D/MM IVS Diastolic Thickness (2D) 0.9 cm 0.6-1.0 LVID Diastole (2D) 3.7 cm 4.2-5.8 LVPW Diastolic Thickness (2D) 1.2 cm 0.6-1.0 IVS Systolic Thickness (2D) 1.0 cm LVID Systole (2D) 2.7 cm 2.5-4.0 LVPW Systolic Thickness (2D) 1.3 cm LV Mass (2D Cubed) 108 g 88-224 LV Mass Index (2D Cubed) 58 g/m2 49-115 Relative Wall Thickness (2D) 0.64 <=0.42 LV Fractional Shortening/Ejection Fraction 2D/MM LV Fractional Shortening (2D) 25 % 25-43 LV EF (2D Teicholz) 54 % 52-72 LV Diastolic Volume (4C MOD) 88 ml LV EF (4C MOD) 62 % LV Diastolic Volume (2C MOD) 77 ml LV EF (2C MOD) 55 % LV Diastolic Volume (BP MOD) 85 ml 62-150 LV Diastolic Volume Index (BP MOD) 45 ml/m2 34-74 LV Systolic Volume (BP MOD) 35 ml 21-61 LV Systolic Volume Index (BP MOD) 19 ml/m2 11-31 LV EF (BP MOD) 58 % 52-72 LV Diastolic Length (4C) 7.5 cm LV Systolic Length (4C) 6.2 cm LV Stroke Volume (4C MOD) 55 ml RV Dimensions 2D/MM RVID Diastole (2D) 2.7 cm 2.5-3.5 RVID Systole (2D) 2.4 cm RV Basal Diastolic Dimension 2.7 cm 2.5-4.1 RV Diastolic Length (4C) 5.5 cm 5.9-8.3 TAPSE 1.9 cm >=1.7 Atria Name Value Normal LA Dimensions LA Dimension (2D) 3.8 cm 3.0-4.1 LA Dimen Index (2D) 2.0 cm/m2 LA Volume (BP MOD) 34 ml LA Volume Index (BP MOD) 18 ml/m2 16-34 RA Dimensions RA Area (4C) 13 cm2 <=18 RA Area (4C) Index 7 cm2/m2 Report Signatures Finalized by Abimbola Flores MD on 12/02/2024 03:18 PM us Ulises Galindo MD ECHO CUPID Final Result * B-TYPE NATRIURETIC PEPTIDE (12/01/2024 10:40 PM CDT) BNP 18 <100 pg/mL 12/01/2024 11:20 PM CDT [facility] Comment: A decision threshold of 100 pg/mL has been demonstrated to provide the maximal combination of sensitivity, specificity and predictive value for the diagnosis of congestive heart failure (CHF). Virtually all patients with no evidence of CHF have BNP values less than 100 pg/mL. A BNP value greater than 100 pg/mL is consistent with the diagnosis of CHF in the appropriate clinical setting. In a study of 693 patients (male and female) with diagnosed CHF, the following values were determined based on the NYHA functional classification system: NYHA Functional Class Mean Valule (pg/mL) % >100 pg/mL I 320 58.1 II 432 73.0 III 656 79.0 IV 1635 98.3 Blood BLOOD SPECIMEN / Unknown Venipuncture / Unknown 12/01/2024 10:40 PM CDT 12/01/2024 10:45 PM CDT us Ulises Galindo MD LAB - CHEMISTRY ORDERABLES [facility] Result Performing Organization Address City/State/[facility] Co de Phone Number [facility] [address] [place] [phone], [facility] [phone] * XR Chest 1Vw Portable (12/01/2024 10:35 PM CDT) Only the most recent of3 resultswithin the time period is included. Anatomical Region Laterality Modality Chest Digital Radiogra phy 12/01/2024 11:0 8 PM CDT Narrative 12/01/2024 11:08 PM CDT PROCEDURE: XR CHEST 1VW PORTABLE DATE/TIME OF EXAM: 12/01/2024 10:35 PM CLINICAL INFORMATION: None relevant/not provided if blank. Indication: R07.9: Chest pain, unspecified type Additional History: COMPARISON: 11/29/2024. FINDINGS: Tubes and lines: Tracheostomy is reidentified. Lungs are moderately expanded. Mild interval improvement of left lower lobe atelectasis, otherwise no significant change. No new pulmonary opacities. No pleural effusion or pneumothorax seen. No other newly developed findings in the chest. > Interpreting Provider: Bebo Kuo MD on 12/01/2024 11:08 PM Procedure Note Bebo Kuo MD - 12/01/2024 PROCEDURE: XR CHEST 1VW PORTABLE DATE/TIME OF EXAM: 12/01/2024 10:35 PM CLINICAL INFORMATION: None relevant/not provided if blank. Indication: R07.9: Chest pain, unspecified type Additional History: COMPARISON: 11/29/2024. FINDINGS: Tubes and lines: Tracheostomy is reidentified. Lungs are moderately expanded. Mild interval improvement of left lower lobe atelectasis, otherwise no significant change. No new pulmonary opacities. No pleural effusion or pneumothorax seen. No other newly developed findings in the chest. > Interpreting Provider: Bebo Kuo MD on 1:08 PM us Ulises Galindo MD DIAGNOSTIC IMAGING ORDERABLES F inal Result * XR Abdomen Kub Portable (11/29/2024 11:06 PM CDT) Only the most recent of2 resultswithin the time period is included. Anatomical Region Laterality Modality Abdomen Digital Radiogra phy 11/29/2024 11:1 7 PM CDT Narrative 11/29/2024 11:17 PM CDT PROCEDURE: XR ABDOMEN KUB PORTABLE DATE/TIME OF EXAM: 11/29/2024 11:06 PM CLINICAL INFORMATION: None relevant/not provided if blank. Indication: R56.9: Seizure (HCC) Additional History: COMPARISON: None. FINDINGS: Gastrostomy tube is noted in the distal stomach body. Partially distended stomach and a duodenum with contrast medium. > Interpreting Provider: Bebo Kuo MD on 11/29/2024 11:17 PM Procedure Note Bebo Kuo MD - 11/29/2024 PROCEDURE: XR ABDOMEN KUB PORTABLE DATE/TIME OF EXAM: 11/29/2024 11:06 PM CLINICAL INFORMATION: None relevant/not provided if blank. Indication: R56.9: Seizure (HCC) Additional History: COMPARISON: None. FINDINGS: Gastrostomy tube is noted in the distal stomach body. Partiallydistended stomach and a duodenum with contrast medium. > Interpreting Provider: Bebo Kuo MD on 511:17 PM us Ulises Galindo MD DIAGNOSTIC IMAGING ORDERABLES F inal Result * (ABNORMAL) LACOSAMIDE (11/27/2024 2:46 AM CDT) Lacosamide 17.6(H) 1.0 - 10.0 ug/mL 11/29/2024 1:20 AM CDT [facility] ([facility]) Comment: INTERPRETIVE INFORMATION: Lacosamide, Serum Therapeutic Range: 1.0 - 10.0 ug/mL Toxic: >=20.0 ug/mL Lacosamide is an anticonvulsant drug indicated for adjunctive therapy for partial-onset seizures. The therapeutic range is based on serum, predose (trough) draw collection at steady-state concentration. Adverse effects may include dizziness, fatigue, nausea, vomiting, blurred vision, and tremor. Performed By: [facility] [address] [place] [address] Student Outreach Coordinator: Power Milian MD, PhD CLIA Number: [id number] Blood BLOOD SPECIMEN / Unknown Lab Venipuncture / Unknown 11/27/2024 2:46 AM CDT 11/27/2024 2:56 AM CDT us Ulises Galindo MD LAB - CHEMISTRY ORDERABLES Lulu l Result [facility]) [address] [place] [address] * (ABNORMAL) LEVETIRACETAM LEVEL (11/27/2024 2:46 AM CDT) Levetiracetam 72(H) 10 - 40 ug/mL 11/28/2024 7:28 PM CDT [employer] ([facility]) Comment: INTERPRETIVE INFORMATION: Keppra (Levetiracetam) Therapeutic Range: 10-40 ug/mL Toxic: Not well Established Pharmacokinetics of levetiracetam are affected by renal function. Adverse effects may include somnolence, weakness, headache and vomiting. This levetiracetam (Keppra) immunoassay uses the [employer] reagents, which has known cross-reactivity with the drug brivaracetam (Briviact) and may report inaccurate results. Patients transitioning from levetiracetam to brivaracetam or those who are using both medications should not monitor drug concentrations with the [employer] assay. These patients should be monitored using a validated chromatographic methodology that distinguishes between drugs to determine drug concentrations. Performed By: [facility] [address] [place] [address] Student Outreach Coordinator: Power Milian MD, PhD CLIA Number: [id number] Blood BLOOD SPECIMEN / Unknown Lab Venipuncture / Unknown 11/27/2024 2:46 AM CDT 11/27/2024 2:56 AM CDT Ulises Galindo MD LAB - THERAPEUTIC DRUG MONITORI NG ORDERABLES Final Result Performing Organization Address [facility]/ZIP Co de Phone Number [facility] ([facility]) [address] [place] [address] * (ABNORMAL) VALPROIC ACID LEVEL (11/27/2024 2:46 AM CDT) [facility] Valproic Acid Total <13(L) 50 - 100 ug/mL 11/27/2024 3:22 AM CDT [facility] Blood BLOOD SPECIMEN / Unknown Lab Venipuncture / Unknown 11/27/2024 2:46 AM CDT 11/27/2024 2:56 AM CDT Ulises Galindo MD LAB - CHEMISTRY ORDERABLES Lulu l Result [address] [address], [place] [phone] * (ABNORMAL) CBC W/O DIFFERENTIAL (11/26/2024 10:59 PM CDT) [facility] WBC 6.9 4.0 - 10.7 x10E9/L 11/26/2024 11:01 PM [facility] RBC Count 3.56(L) 4.30 - 5.80 x10E12/L 11/26/2024 11:01 PM [facility] Hemoglobin 11.5(L) 13.3 - 17.5 g/dL 11/26/2024 11:01 PM [facility] Hematocrit 33.1(L) 38.7 - 51.1 % 11/26/2024 11:01 PM [facility] MCV 93.0 80.0 - 98.0 fL 11/26/2024 11:01 PM [facility] MCH 32.3 26.7 - 33.6 pg 11/26/2024 11:01 PM [facility] MCHC 34.7 31.7 - 36.3 g/dL 11/26/2024 11:01 PM [facility] RDW-CV 13.1 11.3 - 14.8 % 11/26/2024 11:01 PM [facility] Platelet Count 251 150 - 420 x10E9/L 11/26/2024 11:01 PM [facility] MPV 11.8(H) 7.8 - 11.4 fL 11/26/2024 11:01 PM [facility] Blood BLOOD SPECIMEN / Unknown Venipuncture / Unknown 11/26/2024 10:59 PM CDT 11/26/2024 10:59 PM CDT us Ulises Galindo MD LAB - HEMATOLOGY ORDERABLES Fin al Result Performing Organization Address City/State/[facility] Co de Phone Number [facility] [address] [place] [address], [facility] [phone] * CARDIAC EKG ORDER (10/18/2024 11:02 AM CDT) Narrative 10/18/2024 11:02 AM CDT Ordered by an unspecified provider. us Scanned Document CARDIAC SERVICES ORDERABLES Fin al Result * URINALYSIS REFLEX MICROSCOPIC REFLEX CULTURE (10/18/2024 6:28 AM CDT) Color UA Yellow Yellow, Straw 10/18/2024 6:49 AM CDT [facility] Clarity UA Clear Clear 10/18/2024 6:49 AM CDT [facility] Glucose UA Normal Normal 10/18/2024 6:49 AM CDT [facility] Bilirubin UA Negative Negative 10/18/2024 6:49 AM CDT [facility] Ketone UA Negative Negative 10/18/2024 6:49 AM CDT [facility] Specific [place] UA 1.022 1.005 - 1.030 10/18/2024 6:49 AM CDT [facility] Blood UA Negative Negative 10/18/2024 6:49 AM CDT [facility] pH UA 8.0 5.0 - 8.0 pH 10/18/2024 6:49 AM T [facility] Protein UA Negative Negative 10/18/2024 6:49 AM CDT [facility] Urobilinogen UA Normal Normal mg/dL 10/18/2024 6:49 AM CDT [facility] Nitrite UA Negative Negative 10/18/2024 6:49 AM T [facility] Leukocyte Esterase UA Negative Negative 10/18/2024 6:49 AM T [facility] Reflex Status Culture not indicated 10/18/2024 6:49 AM [facility] Urine URINE SPECIMEN OBTAINED BY CLEAN CATCH PROCEDURE / Unknown Collection / Unknown 10/18/2024 6:28 AM CDT 10/18/2024 6:32 AM CDT us Caio Elder MD LAB - URINALYSIS ORDERABLES nal Result Performing Organization Address [facility] Co de Phone Number [facility] [address] [place] [phone], [facility] [phone] * CT Abdomen Pelvis W Contrast (10/17/2024 [...] diaphragm. Report dictated by Meeta Leblanc MD (residential sales executive). Nj Thomason MD have personally reviewed and [...] diaphragm. Report dictated by Meeta Leblanc MD (residential sales executive). Nj Thomason MD have personally reviewed and interpreted this examination/study. > Interpreting Provider: Nj Escobar MD on 10/18/2024 11:44 AM Caio Elder MD DIAGNOSTIC IMAGING ORDERABLES Final Result * TROPONIN-I HIGH SENSITIVE BASELINE + 1HR (10/17/2024 4:08 PM CDT) Troponin I High Sensitive 4 <=35 ng/L 10/17/2024 5:01 PM CDT [facility] Blood BLOOD SPECIMEN / Unknown Venipuncture / Unknown 10/17/2024 4:08 PM CDT 10/17/2024 4:17 PM CDT Caio Elder MD LAB - CHEMISTRY ORDERABLES Fin al Result [address] [address], [facility] [phone] * LIPASE BLOOD (10/17/2024 4:08 PM CDT) Pathologist [facility] Lipase 23 8 - 78 U/L 10/17/2024 5:14 PM CDT [facility] Blood BLOOD SPECIMEN / Unknown Venipuncture / Unknown 10/17/2024 4:08 PM CDT 10/17/2024 4:17 PM CDT Narrative [facility] - 10/17/2024 5:14 PM CDT Lipase results from the [employer] Al[employer] analyzer may not be comparable with other methodologies. us Caio Elder MD LAB - CHEMISTRY ORDERABLES Fin al Result [address] [address], [place] [phone] * LACTIC ACID BLOOD (10/17/2024 4:08 PM CDT) [facility] Lactic Acid-Stat 1.8 <=2.0 mmol/L 10/17/2024 4:47 PM CDT [facility] Blood BLOOD SPECIMEN / Unknown Venipuncture / Unknown 10/17/2024 4:08 PM CDT 10/17/2024 4:17 PM CDT us Caio Elder MD LAB - CHEMISTRY ORDERABLES Fin al Result Performing Organization Address City/[facility]/ZIP Co de Phone Number [address] [address], [place] [phone] * HEPATITIS C AB SCREEN RFLX NAAT QUANT (09/01/2022 2:05 AM CDT) [facility] Hepatitis C Antibody Non-react phan Non-reac tive [...] Result Performing Organization Address [facility]/ZIP Co de Phone Number [facility] [address] [place] [address], [place] [phone] * HIV-1 HIV-2 ANTIBODY + HIV P24 AG PANEL (09/01/2022 2:05 AM CDT) HIV Antigen/Antibod y 1 & 2 Non-reacti ve Non-react phan 09/01/2022 3:09 AM CDT [facility] Comment:No Laboratory eviden ce of HIV infection. 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 Source: [facility]. 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 John Seipel Infection Prevention 09/18/2022 MDRO Hx 09/18/2022 11/27/2024 MRSA Hx 06/11/2023 11/27/[address] [facility] [place] [place] [address] Advance Directives Documents on File Type Date Recorded Patient Wildfire Prevention Specialist Expl anation Adv Directive/Living Will/POA 07/19/2019 4:10 PM * Full Code (Latest Code Status on File) Date Activated Date Inactivated Comments 11/26/2024 7:45 PM 12/11/2024 6:58 PM * Full Code Date Activated Date Inactivated Comments 11/26/2024 5:31 PM 11/26/2024 7:45 PM * Full Code Date Activated Date Inactivated Comments 08/03/2024 3:18 AM 08/08/2024 9:58 PM * Full Code Date Activated Date Inactivated Comments 07/17/2024 3:34 AM 07/19/2024 6:56 PM * Full Code Date Activated Date Inactivated Comments 06/08/2024 12:11 AM 06/10/2024 2:02 AM Care Teams High Climber Relationship Specialty Start Date End Date Jack Arroyo MD [address] [place] [address] PCP - General 10/17/24 Elizabeth Sullivan, RN Retail Greeting Card Merchandiser 10/14/17
--- OUTSIDE RECORDS SUMMARY | 2024-12-13 07:37 | XMS_ITS | Encounter Summary ---
Author Organization [facility] Address [address] [place] [address] Care Team Providers Care Craps Manager Name Role Phone Frank Toure MD Unavailable Joyce Luevano NP Primary Care Provider Unavaila Marielena Adame MD Primary Care Provider [phone] Encounter Details Date Type Department Care Team (Late st Contact Info) Description 03/09/2022 [employer] Message Enc [facility] Family Medicine - [address] [address] Joyce Luevano, SERVICE CENTER ASSISTANT Update on Bi Tabor Social History Tobacco [...] on filedocumented in this encounter Care Teams Craps Manager Relationship Specialty Start Date End Date oJyce Luevano NP [address] [place] [address] PCP - General NURSE PRACTITIONER 01/14/20 10/26/23 Marielena Smallwood MD [address] [place] [address] PCP - General FAMILY PRACTICE 10/27/23 Frank Toure MD [address] [place] [address] [employer] Information Security Architect CARDIOVASCULAR DISEASE 05/30/16 documented as of this encounter
--- OUTSIDE RECORDS SUMMARY | 2024-12-13 07:37 | XMS_ITS | Encounter Summary ---
Author Organization [facility] Address [address] [place] [address] Care Team Providers Care Drying Room Attendant Name Role Phone Frank Toure MD Unavailable Joyce Luevano NP Primary Care Provider Unavaila Marielena Adame MD Primary Care Provider [phone] Encounter Details Date Type Department Care Team (Late st Contact Info) Description 03/13/2022 Standout Jobst Message Enc [facility] Family Medicine - [address] [address] Joyce Luevano, EMBOSSING CALENDER OPERATOR Bi Tabor Update Social History Tobacco [...] on filedocumented in this encounter Care Teams Drying Room Attendant Relationship Specialty Start Date End Date Joyce Luevano NP [address] [place] [address] PCP - General NURSE PRACTITIONER 01/14/20 10/26/23 Marielena Smallwood MD [address] [place] [address] PCP - General FAMILY PRACTICE 10/27/23 Frank Toure MD [address] [place] [address] [employer]ivo Lecturer Of Portuguese CARDIOVASCULAR DISEASE 05/30/16 documented as of this encounter
--- OUTSIDE RECORDS SUMMARY | 2024-12-13 07:37 | XMS_ITS | Clinical Summary ---
Author Organization [facility] Address [address] [place] [address] Care Team Providers Care Revenue Settlements Administrator Name Role Phone Frank Toure MD Unavailable Marielena Smallwood MD Primary Care Provider [phone] Allergies Active Allergy Reactions Criticality Noted Date Comments Clonazepam Hallucinations Medium 12/09/2021 hallucinations Medications vitamin B-1 100 MG TabIndications:Seiz ure ([facility]) Take 1 tablet (100 mg total) by [...] x 7.5 MG/0.1ML Liquid Therapy PackIndications:Tara llanes ([facility]) 2 sprays by Nasal route as needed. [...] No evidence of infection Urine cultures [facility] month were negative growth as well [...] infection. Antibiotics not indicated Osteoporosis 11/22/2018 Seizure ([facility]) 08/25/2017 Cerebrovascular accident (CV A) due to thrombosis of right posterior cerebral artery ([facility]) 02/20/2016 Assessment & Plan (11/29/2018 9:36 PM CDT): Patient has residual cognitive difficulties I think beyond with patient and her family have recognized in the past however as noted in adequate medication intake her side effects may be causing deterioration. Hypertension 07/24/2015 Hyperlipidemia 04/14/2015 Assessment & Plan (11/29/2018 9:36 PM CDT): Continue home meds and monitor Seizure ([facility]) 04/11/2015 Assessment & Plan (11/29/2018 9:39 PM CDT): History of generalized seizure disorder and being managed by a neurologist in [facility] however there is confusion from family about dosages of his medications because he is got multiple pill bottles at home. Verification of levetiracetam dose per neurologist noted Immunizations Immunization Administration Dates Next Due Influenza [...] Comments Blood Pressure 128/72 06/17/2022 10:46 AM GIS GEOGRAPHER Pulse 95 06/17/2022 10:46 AM GIS GEOGRAPHER Temperature 36.4 C (97.6 F) 06/07/2022 12:31 PM GIS GEOGRAPHER Respiratory Rate 18 06/17/2022 10:4 6 AM GIS GEOGRAPHER Oxygen Saturation 98% 06/17/2022 10: 46 AM GIS GEOGRAPHER Inhaled Oxygen Concentration - - Weight 59 kg (130 lb) 06/17/2022 10:46 AM GIS GEOGRAPHER stated - unable to weigh Height 180.3 cm (5' 11) 06/17/2022 10: 46 AM GIS GEOGRAPHER Body Mass Index 18.13 06/17/2022 10:46 AM GIS GEOGRAPHER Plan of Treatment Health Maintenance Due Date Last Done Comments Annual Physical 01/27/1963 Zoster Vaccines (1 of 2) 2011 Pneumococcal Vaccine: 50+ Years (2 of 2 - PCV) 02/03/2017 02/04/2016, 08/13/2015, 02/07/2015 RSV Immunization or 60+ Years (1 - Risk 60-74 years 1-dose series) 2021 COVID-19 Vaccine (4 - 2023-2 5 season) 2024 04/06/2021, 07/02/2020, 06/11/2020 PHQ-2 (Physician [place]) 05/30/2024 Colorectal Cancer Screening Colonoscopy (10 Years) [...] HEPATITIS C ANTIBODY Routine 06/23/2016 11:13 AM GIS GEOGRAPHER from Last 3 Months or Most Recently [...] * HEPATITIS C ANTIBODY (06/23/2016 11:13 AM GIS GEOGRAPHER) Pathologist [facility] HEPATITIS C AB NON-REACTIVE [place] [address] NR [facility] TO EPIC CONVERSION 06/23/2016 11:1 3 AM GIS GEOGRAPHER 06/23/2016 11:13 AM GIS GEOGRAPHER Narrative [facility] TO EPIC CONVERSION - 06/24/2016 6:41 PM GIS GEOGRAPHER Result Communication: No patient communication needed at this time us Misael Maradiaga DO LABORATORY Final Result [facility] TO EPIC CONVERSION from Last 3 Months or Most Recently Relevant to Health Maintenance Insurance Advance Directives Documents on File Type Date Recorded Patient Quality Control Director Expl anation Advance Directives and Living Will 10/17/2017 SADVANCE DIRECTIVES * Full Code (Latest Code Status on File) Date Activated Date Inactivated Comments 12/04/2018 1:44 PM 12/12/2018 3:19 PM * Full Code Date Activated Date Inactivated Comments 11/29/2018 6:21 PM 12/04/2018 1:38 PM Care Teams Revenue Settlements Administrator Relationship Specialty Start Date End Date Marielena Smallwood MD [address] [place] [address] PCP - General FAMILY PRACTICE 10/27/23 Frank Toure MD [address] [place] [address] Barry Sterilisation Technician CARDIOVASCULAR DISEASE 05/30/16
--- OUTSIDE RECORDS SUMMARY | 2024-12-13 07:37 | XMS_ITS | Encounter Summary ---
Author Organization [facility] Address [address] [place] [address] Care Team Providers Care Windows Server Engineer Name Role Phone Frank Toure MD Unavailable Joyce Luevano NP Primary Care Provider Unavaila Marielena Adame MD Primary Care Provider [phone] Encounter Details Date Type Department Care Team (Late st Contact Info) Description 02/23/2022 HESIODOt Message Enc [facility] Family Medicine - [address] [address] Joyce Luevano, SPLUNK DASHBOARD DEVELOPER Bi Tabor Social History Tobacco Use [...] 11:25 AM CDT Message sent through other [employer] chart message * Yonatan Rodriguez RN - 02/23/2022 10:24 AM CDT Please see note. Thanks documented in this encounter Plan of Treatment Not on file documented as of this encounter Visit Diagnoses Not on filedocumented in this encounter Care Teams Windows Server Engineer Relationship Specialty Start Date End Date Joyce Luevano NP [address] [place] [address] PCP - General NURSE PRACTITIONER 01/14/20 10/26/23 Marielena Smallwood MD [address] [place] [address] PCP - General FAMILY PRACTICE 10/27/23 Frank Toure MD [address] [place] [address] [place] Strip Machine Tender CARDIOVASCULAR DISEASE 05/30/16 documented as of this encounter
--- OUTSIDE RECORDS SUMMARY | 2024-12-13 07:37 | XMS_ITS | Encounter Summary ---
Author Organization [facility] - [facility] Address [address] [place] [address] Care Team Providers Care Human Resource Analyst Name Role Phone Frank Toure MD Unavailable Joyce Luevano NP Primary Care Provider Unavaila Marielena Adame MD Primary Care Provider [phone] Encounter Details Date Type Department Care Team (Late st Contact Info) Description 06/16/2022 MyCbasnot Message Enc [facility] Family Medicine - [address] [address] Joyce Luevano, PEER FINANCIAL COUNSELOR Bi Tabor Social History Tobacco Use Types [...] Coronavirus/COVID-19? No / Unsure 06/17/2022 10:38 AM AGRICULTURE PROFESSOR documented as of this encounter Functional Status [...] in writing. She states to fax to [phone]. Will send letter to them. CULTURE PROFESSOR * Yonatna Rodriguez RN - 06/16/2022 12:50 PM CST Please see note. Thanks CULTURE PROFESSOR documented in this encounter Plan of Treatment Not on file documented as of this encounter Visit Diagnoses Not on filedocumented in this encounter Care Teams Human Resource Analyst Relationship Specialty Start Date End Date Joyce Luevano NP [address] [place] [address] PCP - General NURSE PRACTITIONER 01/14/20 10/26/23 Marielena Smallwood MD [address] [place] [address] PCP - General FAMILY PRACTICE 10/27/23 Frank Toure MD [address] [place] [address] Chivo Four Slide Machine Setter CARDIOVASCULAR DISEASE 05/30/16 documented as of this encounter
--- OUTSIDE RECORDS SUMMARY | 2024-12-13 07:37 | XMS_ITS | Encounter Summary ---
Author Organization [facility] - [facility] Address [address] [place] [address] Care Team Providers Care Pest Control Applicator Name Role Phone Frank Toure MD Unavailable Joyce Luevano NP Primary Care Provider Unavaila Marielena Adame MD Primary Care Provider [phone] Encounter Details Date Type Department Care Team (Late st Contact Info) Description 02/23/2022 [employer] TVt Message Enc [facility] Medical Group Family Medicine - [address] [address] Joyce Luevano, ORTHOPEDIC SHOES SALESPERSON Bi Tabor toenail Social History Tobacco Use [...] Author Status Yes 12/04/2018 2:03 PM CDT Anaih Jernigan RN Active * Do you have [...] on filedocumented in this encounter Care Teams Pest Control Applicator Relationship Specialty Start Date End Date Joyce Luevano NP [address] [place] [address] PCP - General NURSE PRACTITIONER 01/14/20 10/26/23 Marielena Smallwood MD [facility] [place] [address] PCP - General FAMILY PRACTICE 10/27/23 Frank Toure MD [address] [place] [address] Chivo Manager Scheduling CARDIOVASCULAR DISEASE 05/30/16 documented as of this encounter
--- OUTSIDE RECORDS SUMMARY | 2024-12-13 07:37 | XMS_ITS | Encounter Summary ---
Author Organization [facility] Address [address] [place] [address] Care Team Providers Care Director Council On Aging Name Role Phone Frank Toure MD Unavailable Misael Maradiaga DO Primary Care Provider [phone] Joyce Luevano NP Primary Care Provider Unavaila Marielena Adame MD Primary Care Provider [phone] Encounter Details Date Type Department Care Team (Late st Contact Info) Description 12/14/2018 Hospital Follow-up Call [facility] [place] [address] Cony Adan RN Social History Tobacco Use [...] filedocumented in this encounter Care Teams Director Council On Aging Relationship Specialty Start Date End Date Misael Maradiaga DO [address] [place] [address] PCP - General FAMILY PRACTICE 09/28/18 01/13/20 Joyce Luevano NP [address] [place] [address] PCP - General NURSE PRACTITIONER 01/14/20 10/26/23 Marielena Smallwood MD [address] [place] [address] PCP - General FAMILY PRACTICE 10/27/23 Frank Toure MD [address] [place] [address] Chivo Sheet Heater CARDIOVASCULAR DISEASE 05/30/16 documented as of this encounter
--- OUTSIDE RECORDS SUMMARY | 2024-12-13 07:37 | XMS_ITS | Encounter Summary ---
Author Organization [facility] Health Address [address] [place] [address] Care Team Providers Care Medical Office Clerk Name Role Phone Elizabeth Sullivan RN Unavailable [phone] Jack Arroyo MD Primary Care Provider Rosie marsh Reason for Visit * Reason Onset Date Comments Appointment 11/05/2024 Encounter Details Date Type Department Care Team (Late st Contact Info) Description 11/05/2024 Telephone [facility] - Centralized Scheduling [address] [place] [address] Alden Hurtado MD [address] [place] [address] Appointment Social History Tobacco Use Types Packs/Day Years [...] and heating? Not hard at all 08/06/2024 [facility] [place] of Occupat ional Health - Occupational Stress [...] on file Legal Sex Male 5:07 PM FOOD AND BEVERAGE CASHIER Gender Identity Not on file Sexual Orientation Not on file documented as of this encounter Functional Status * Is person deaf or have serious hearing difficulty? Answer Date of Assessment Author No 07/17/2024 2:53 PM Mahognay Watson RN * Is person blind or [...] Watson RN * Does person have difficulty doing errands alone? Answer Date of Assessment Author Yes 07/17/2024 2:53 PM Mahogany Watson RN documented as of this encounter Mental Status * Does person have difficulty concentrating/remembering/making decisions? Answer Entry Date Author Yes 07/17/2024 2:53 PM Mahogany Watson RN documented in this encounter Miscellaneous Notes * Telephone Encounter - Olimpia Tuttle - 11/05/2024 2:37 PM CDT Appointment Request From: Bi Tabor With Provider: Alden Hurtado MD [[facility] - ENT] Preferred Date Range: 11/20/2024 - 11/26/2024 Preferred Times: Tuesday Morning, Tuesday Afternoon, Tuesday Morning, Tuesday Afternoon, Morning, Afternoon Reason for visit: evaluate trachea; swallow test Health Maintenance Topic: Comments: perform. swallow test documented in this encounter Plan of Treatment Upcoming Encounters Date Type Department Care Team (Late st Contact Info) Description 01/14/2025 2:00 PM CDT Office Visit [facility] - GI [address] [place] [phone] 03/06/2025 10:00 AM CDT Office Visit [facility] - Neurology [address] [place] [phone] Saloni King, APPELLATE LAW CLERK-BRANCH CREDIT COUNSELOR [address] [place] [address] documented as of this encounter Visit Diagnoses Not on filedocumented in this encounter Additional Health Concerns Infection Onset Date Last Indicated Resolved Time 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 Source: [facility]. 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 John Seipel Infection Prevention 09/18/2022 MDRO Hx 09/18/2022 11/27/2024 MRSA 06/11/2023 06/11/2023 11/27/2024 7:23 AM CDT MRSA Hx 06/11/2023 11/27/2024 documented as of this encounter Care Teams Medical Office Clerk Relationship Specialty Start Date End Date Jack Arroyo MD [address] [place] [address] PCP - General 10/17/24 Elizabeth Sullivan, RN Line Ordering Clinician 10/14/17 documented as of this encounter
--- OUTSIDE RECORDS SUMMARY | 2024-12-13 07:37 | XMS_ITS | Encounter Summary ---
Author Organization [facility] Address [address] [place] [address] Care Team Providers Care Underwriting Technician Name Role Phone Elizabeth Sullivan RN Unavailable [phone] Jack Arroyo MD Primary Care Provider Rosie marsh Reason for Visit * Reason Onset Date Comments Transitional Care 12/12/2024 Encounter Details Date Type Department Care Team (Late st Contact Info) Description 12/12/2024 Telephone Transitional Care at [address] [address] Tiffani Moreno, director of managed services Social History Tobacco Use Types Packs/Day Years [...] and heating? Not hard at all 08/06/2024 [facility] Occupat ional Health - Occupational Stress [...] in a penitentiary (including now)? No 06/19/2023 Housing Stability Vital Sign Answer Vinay e Recorded In the last 12 months, was t here a time when you were not able to pay the mortgage or rent on time? No 08/06/2024 In the past 12 months, how m any times have you moved where you were living? 1 08/06/2024 At any time in the past 12 m onths, were you homeless or living in a penitentiary (including now)? 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 Answer Date of Assessment Author No 11/29/2024 2:19 PM KASIT Georgie Melara RN * Is person blind or have serious difficulty seeing? Answer Date of Assessment Author No 11/29/2024 2:19 PM CDT Georgie Melara RN * Does person have serious difficulty walking/climbing stairs? Answer Date of Assessment Author Yes 11/29/2024 2:19 PM CDT Georgie Melara RN * Does person have difficulty dressing/bathing? Answer Date of Assessment Author Yes 11/29/2024 2:19 PM CDT Georgie Melara RN * Does person have difficulty doing errands alone? Answer Date of Assessment Author Yes 11/29/2024 2:19 PM CDT Georgie Melara RN documented as of this encounter Mental Status * Does person have difficulty concentrating/remembering/making decisions? Answer Entry Date Author Yes 11/29/2024 2:19 PM CDT Georgie Melara RN documented in this encounter Miscellaneous Notes * Telephone Encounter - Tiffani Moreno RN - 12/12/2024 11:27 AM CDT Chart reviewed. Patient discharged 12/11/24 and returned to [facility]. Called Facility ([phone]) was told patient is followed by Dr Arroyo. documented in this encounter Plan of Treatment Upcoming Encounters Date Type Department Care Team (Late st Contact Info) Description 01/14/2025 2:00 PM CDT Office Visit [facility] - GI [address] [place] [phone] 03/06/2025 10:00 AM CDT Office Visit [facility] - Neurology [address] [place] [phone] Saloni King APRN-MUSICAL THERAPIST [address] [place] [phone] documented as of this encounter Visit Diagnoses Not on filedocumented in this encounter Additional Health Concerns Infection Onset Date Last Indicated Resolved Time 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 Source: [facility]. 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 John ipel Infection Prevention 09/18/2022 MDRO Hx 09/18/2022 11/27/2024 MRSA Hx 06/11/2023 11/27/2024 documented as of this encounter Care Teams Underwriting Technician Relationship Specialty Start Date End Date Jack Arroyo MD [address] [place] [address] PCP - General 10/17/24 Elizabeth Sullivan, RN Accuracy Expert 10/14/17 documented as of this encounter
--- OUTSIDE RECORDS SUMMARY | 2024-12-13 07:37 | XMS_ITS | Encounter Summary ---
Author Organization [facility] - [facility] Address [address] [place] [address] Care Team Providers Care Pmo Analyst Name Role Phone Frank Toure MD Unavailable Joyce Luevano NP Primary Care Provider Unavaila Marielena Adame MD Primary Care Provider [phone] Encounter Details Date Type Department Care Team (Late st Contact Info) Description 05/11/2022 [employer] Researcht Message Enc [facility] Medical Group Family Medicine - [address] [address] Joyce Luevano, BOUCHRA Pat appointment [...] on filedocumented in this encounter Care Teams Pmo Analyst Relationship Specialty Start Date End Date Joyce Luevano NP [address] [place] [address] PCP - General NURSE PRACTITIONER 01/14/20 10/26/23 Marielena Smallwood MD [address] [place] [address] PCP - General FAMILY PRACTICE 10/27/23 Frank Toure MD [address] [place] [address] [place] Leather Roller CARDIOVASCULAR DISEASE 05/30/16 documented as of this encounter
--- OUTSIDE RECORDS SUMMARY | 2024-12-13 07:37 | XMS_ITS | Clinical Summary ---
Author Organization [facility] Address [address] [place] [address] Care Team Providers Care Power Lineman Technician Name Role Phone Marielena Smallwood MD [...] Assessment & Plan (06/28/2024 11:42 AM INSURANCE RISK SURVEYOR): Now back on full TF's sugars running mildly high. Monitor with q4 accuchecks and SSI. Hypophosphatemia 06/27/2024 Assessment & Plan (06/28/2024 11:44 AM INSURANCE RISK SURVEYOR): <0.7 ? 2/2 refeeding syndrome. Started on neutraphos 2pkg QID 06/26. Still Phos<0.7 06/27. Tx with IV NaPhos 30mmoles and cont per tube replacement and monitor closely. -06/28: Phos=3.3, reduce nuetraphos to 1 PKG BID and monitor History of DVT (deep vein thrombosis) 06/26/2024 Assessment & Plan (06/26/2024 1:32 PM INSURANCE RISK SURVEYOR): -On anticoagulation with Eliquis 5 mg po BID for hx of DVT -per chart review hx of Left Subclavian vein DVT diagnosed 08/01/23 H/O: GI bleed 06/25/2024 Assessment & Plan (06/26/2024 1:32 PM INSURANCE RISK SURVEYOR): - recent admission at [facility] ( 06-07-24 [...] Assessment & Plan (06/26/2024 1:36 PM INSURANCE RISK SURVEYOR): Tracheostomy dependence, has a Shiley #4 cuffed. Pt followed at [facility], per notes trach in place for pulmonary toilet due to his copious secretions and ongoing aspiration of his secretions. -needing frequent suctioning -sats stable on 28% FIO2 by [facility] -Was getting VEST at [facility] Low grade fever 06/20/2024 Assessment & Plan (06/26/2024 1:34 PM INSURANCE RISK SURVEYOR): Low-grade fever and tachycardia, softer BP after [...] Assessment & Plan (06/28/2024 11:43 AM INSURANCE RISK SURVEYOR): -patient at admission with a G tube, was getting continous tube feedings at [facility] and not tolerating, -was changed to [...] had 18 Serbian G tube placed at [facility] ED on 04/21/24 (records on care everywhere)and after that he has not tolerated well tube feedings per discussion with his sister Ms Hilliard,Adriane [phone] POA - consulted IR 06-20-24 for conversion [...] goal 06/25, adjust FWF per hydration status, commutator repairer to follow up -On full TF's-osmolite 1.5. Phos repleted. Copious oral secretions 06/13/2024 Assessment & Plan (06/26/2024 1:29 PM INSURANCE RISK SURVEYOR): Patient on chronic glycopyrrolate due to secretions, held at admission 2/ to potential for constipation with plan to add back when he's had a bowel movements -resume on 06-19- hold on 06-20 due to somnolence. Suction PRN - restart glycopyrrolate 1mg BID 06/26 and monitor Abdominal pain 06/12/2024 Assessment & Plan (06/26/2024 1:23 PM INSURANCE RISK SURVEYOR): -p/w abdominal distention from SNF to ED on 06-12 ,reported biliary emesis per [facility] (approximately 300 cc) , not associated fevers or change in bowel habits. Feeding tube placed to gravity drainage in ED H&P notes regular bowel movements. CT scan on 06-12 in ED with stool in the rectum and sigmoid. [place] likely constipation contributing to the patient's abdominal [...] Assessment & Plan (06/26/2024 12:08 AM INSURANCE RISK SURVEYOR): Complicated by left LE AKA. History of CVA (cerebrovascular accident) 2020 Assessment & Plan (06/26/2024 1:32 PM INSURANCE RISK SURVEYOR): - hx of RT parietal CVA- hx of dementia Cont asa and statin Essential hypertension 12/11/2020 Assessment & Plan (06/26/2024 1:30 PM INSURANCE RISK SURVEYOR): - on metoprolol and norvasc, held with soft BP 06-19 - resume metoprolol 06-21 -resume amlodipine 06-22 - Monitor Hyperlipidemia 12/11/2020 Assessment & Plan (06/12/2024 3:47 PM INSURANCE RISK SURVEYOR): - Continue home statin Seizure 12/10/2020 Assessment & Plan (06/26/2024 1:36 PM INSURANCE RISK SURVEYOR): History of seizure disorder secondary to traumatic brain injury. Currently on valproate, Vimpat, Keppra and Cobazam - Continue home medication, valproate level low at admit 48 on 06-12, 48 on 06-13, Valproic acid level 76 06-19 prior to dose, lacosamide level 1.4 on 06/12, 9.6 on 06-19 Followed by Neurology at [facility] Cognitive communication deficit 08/25/2020 Cerebrovascular [...] h recurrent seizures (HCC) Followed up at [facility] ([facility]) Degenerative cervical spinal stenosis Family History Medical History Relation Name Comments Coronary artery disease Father Stroke Father Hypertension Mother Relation Name Status Comments Father Mother Social History Tobacco Use Types Packs/Day Years Used Date Smoking Tobacco: Former Cigarettes Smokeless Tobacco: Current Tobacco Cessation:Counseling Given: Yes [facility] Utilities Answer Date Recorded In [...] often do you attend chur ch or scientology services? Never 06/18/2024 Do you belong to any clubs o r organizations such as baptism groups, unions, fraternal or athletic groups, or [...] file Legal Sex Male 6:11 AM INSURANCE RISK SURVEYOR Gender Identity Not on file Sexual Orientation Not on file Obstetrics History Last Filed Vital Signs Vital Sign Reading Time Taken Comments Blood Pressure 145/83 07/09/2024 6:00 AM INSURANCE RISK SURVEYOR Pulse 91 07/09/2024 6:00 AM INSURANCE RISK SURVEYOR Temperature 36.5 C (97.7 F) 07/09/2024 6:31 AM INSURANCE RISK SURVEYOR Respiratory Rate 10 07/09/2024 6:00 AM INSURANCE RISK SURVEYOR Oxygen Saturation 100% 07/09/2024 6:00 AM INSURANCE RISK SURVEYOR Inhaled Oxygen Concentration - - Weight 79.8 kg (176 lb) 07/09/2024 2:16 AM INSURANCE RISK SURVEYOR Height 182.9 cm (6') 07/09/2024 2:16 AM INSURANCE RISK SURVEYOR Body Mass Index 23.87 07/09/2024 2:16 AM INSURANCE RISK SURVEYOR Plan of Treatment Health Maintenance Due Date [...] 2024 04/06/2021, 07/02/2020, 06/11/2020 Influenza Vaccine (#1) 2025 2, 03/16/2021, 03/07/2020, Additional history exists Hemoglobin A1C 02/03/2025 08/03/2024, 05/30, 08/29/2022, Additional history exists Lipid Panel 06/08/2025 06/08/2024, 07/29, 02/02/2016, Additional history exists Depression Screening 06/12/2025 06/12/2024 eGFR 07/08/2025 07/08/2024, 05/31, 06/26/2024, Additional history exists DTaP/Tdap/Td Vaccine (3 - Td or Tdap) 06/06/2027 06/06/2017, 03/23/2017 Hepatitis C Screening Completed 06/26/2024 Procedures Procedure Name Priority Date/Time Associated Diagnosis Comments EGFR STAT 07/08/2024 8:56 PM INSURANCE RISK SURVEYOR HEPATITIS C ANTIBODY Routine 06/26/2024 3:21 PM INSURANCE RISK SURVEYOR HEMOGLOBIN A1C Routine 06/12/2024 3:30 PM INSURANCE RISK SURVEYOR TNI WITH LIPID PANEL Routine 08/24/2017 4:57 PM CDT from Last 3 Months or Most Recently Relevant to Health Maintenance Results * eGFR (07/08/2024 8:56 PM INSURANCE RISK SURVEYOR) eGFR >90 >=60 mL/min/1. 73 m2 Comment: [...] reviewed 2021. Blood 07/08/2024 8:56 PM INSURANCE RISK SURVEYOR 07/08/2024 9:26 PM INSURANCE RISK SURVEYOR Naa Tam MD LAB BLOOD ORDERABLES Fin al Result Performing Organization Address [facility] de Phone Number [facility] Department [place] [address] * Hepatitis C antibody Blood (06/26/2024 3:21 PM INSURANCE RISK SURVEYOR) [facility] Hep C Ab Nonreactive Nonreactive Comment:Antibodies to HCV no t detected. Does NOT exclude the possibility of recent exposure to HCV. Current interpretive data was last revised on 22 Blood 06/26/2024 3:21 PM INSURANCE RISK SURVEYOR 06/26/2024 3:41 PM INSURANCE RISK SURVEYOR Result [facility] Kami Dupont MD LAB MICROBIOLOGY - GENERA L ORDERABLES Final Result Performing Organization Address [facility] de Phone Number [facility] Department [place] [address] * Hemoglobin A1c (06/12/2024 3:30 PM INSURANCE RISK SURVEYOR) Pathologist [facility] Hgb A1C 4.9 4.0 - 5.6 % Estimated Average Glucose 94 mg/dL [facility] Comment: The ADA recommends reporting an estimated Average Glucose (eAG) with all Hemoglobin A1c results using the equation derived from a study of 507 normal and diabetic adults. Minority populations were underrepresented and children were not included. (Diabetes Care 2020; 43(S1): S66-S76). The eAG is not equivalent to a fasting glucose. Blood 06/12/2024 3:30 PM INSURANCE RISK SURVEYOR 06/12/2024 5:10 PM INSURANCE RISK SURVEYOR Ryan Jauregui MD LAB BLOOD ORDERABLES Final Resul t [facility] Department [place] [address] * TNI with LIPID PANEL (08/24/2017 4:57 PM CDT) Troponin I < 0.300 0.000 - 0.300 ng/mL 08/24/2017 5:29 PM CDT [facility] HISTORICAL RESULTS Comment: Reference using JERRICA Chemiluminescence Negative: Repeat in 4-6 hours as indicated. Triglycerides 34 0 - 199 mg/dL 08/24/2017 5:30 PM T [facility] HISTORICAL RESULTS Comment:12 hr pc highly avani mmended for Triglyceride Cholesterol 129 0 - 199 mg/dL 08/24/2017 5:30 PM T [facility] HISTORICAL RESULTS Comment: Borderline: 200-239 High Risk: >239 HDL Cholesterol 71 mg/dL 8 5:30 PM T [facility] [employer] HISTORICAL RESULTS Comment: Reference Ranges: Males: >=40 mg/dL Females: >=50 mg/dL LDL Cholesterol, Calc 51 0 - 130 mg/dL 08/24/2017 5:30 PM T [facility] HISTORICAL RESULTS Comment:High Risk > 159 mg/d L Cholesterol/HDL Ratio 1.8 08/24/2017 5:30 PM T [facility] HISTORICAL RESULTS Comment: Cholesterol / HDL Ratio 3.5:1 or less is desirable. Cholesterol / HDL Ratio greater than 5:1 is considered higher risk for developing heart disease. 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 Source: [facility]. 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 Source: [facility]. 09/18/22 Acinetobacter os 09/18/2022 Insurance [facility] [place] [address] [place] [facility] [place] Advance Directives For more information, please contact: [phone] Documents on File Type Date Recorded Patient Rubber Goods Finisher Expl anation ADVANCE DIRECTIVE 10/08/2012 12:00 AM SANDRA R OF RETURNED TELEPHONE EQUIPMENT [employer] FINANCIAL/MEDICAL * Full Code (Latest Code Status on File) Date Activated Date Inactivated Comments 06/12/2024 3:22 PM 06/28/2024 9:30 PM * Full Code Date Activated Date Inactivated Comments 12/10/2020 9:05 AM 12/13/2020 10:44 PM Care Teams Power Lineman Technician Relationship Specialty Start Date End Date Marielena Smallwood MD [facility] [place] [address] PCP - General Family Practice 07/08/24
--- OUTSIDE RECORDS SUMMARY | 2024-12-13 07:37 | XMS_ITS | Referral Summary ---
Author Organization [facility] Address [address] [place] [address] Care Team Providers Care Juke Box Mechanic Name Role Phone Marielena Smallwood MD Primary [...] 06/28/2024 Assessment & Plan (06/28/2024 11:42 AM GRAPHITE PAN DRIER TENDER): Now back on full TF's sugars running mildly high. Monitor with q4 accuchecks and SSI. Hypophosphatemia 06/27/2024 Assessment & Plan (06/28/2024 11:44 AM GRAPHITE PAN DRIER TENDER): <0.7 ? 2/2 refeeding syndrome. Started on neutraphos 2pkg QID 06/26. Still Phos<0.7 06/27. Tx with IV NaPhos 30mmoles and cont per tube replacement and monitor closely. -06/28: Phos=3.3, reduce nuetraphos to 1 PKG BID and monitor History of DVT (deep vein thrombosis) 06/26/2024 Assessment & Plan (06/26/2024 1:32 PM GRAPHITE PAN DRIER TENDER): -On anticoagulation with Eliquis 5 mg po BID for hx of DVT -per chart review hx of Left Subclavian vein DVT diagnosed 08/01/23 H/O: GI bleed 06/25/2024 Assessment & Plan (06/26/2024 1:32 PM GRAPHITE PAN DRIER TENDER): - recent admission at [facility] ( [...] 06/25/2024 Assessment & Plan (06/26/2024 1:36 PM GRAPHITE PAN DRIER TENDER): Tracheostomy dependence, has a Shiley #4 cuffed. Pt followed at [facility], per notes trach in place for pulmonary toilet due to his copious secretions and ongoing aspiration of his secretions. -needing frequent suctioning -sats stable on 28% FIO2 by HHTC -Was getting VEST at [facility] Low grade fever 06/20/2024 Assessment & Plan (06/26/2024 1:34 PM GRAPHITE PAN DRIER TENDER): Low-grade fever and tachycardia, softer BP [...] 06/17/2024 Assessment & Plan (06/28/2024 11:43 AM GRAPHITE PAN DRIER TENDER): -patient at admission with a G tube, was getting continous tube feedings at [facility] and not tolerating, -was changed to bolus [...] tube fell off and pt had 18 Chinese G tube placed at [facility] ED on 04/21/24 (records on care everywhere)and after that he has not tolerated well tube feedings per discussion with his sister Ms Hilliard,Adriane [phone] POA - consulted IR 06-20-24 for conversion [...] goal 06/25, adjust FWF per hydration status, secondary school registrar to follow up -On full TF's-osmolite 1.5. Phos repleted. Copious oral secretions 06/13/2024 Assessment & Plan (06/26/2024 1:29 PM GRAPHITE PAN DRIER TENDER): Patient on chronic glycopyrrolate due to secretions, held at admission 2/ to potential for constipation with plan to add back when he's had a bowel movements -resume on 06-19- hold on 06-20 due to somnolence. Suction PRN - restart glycopyrrolate 1mg BID 06/26 and monitor Abdominal pain 06/12/2024 Assessment & Plan (06/26/2024 1:23 PM GRAPHITE PAN DRIER TENDER): -p/w abdominal distention from SNF to ED on 06-12 ,reported biliary emesis per alf (approximately 300 cc) , not associated fevers or change in bowel habits. Feeding tube placed to gravity drainage in ED H&P notes regular bowel movements. CT scan on 06-12 in ED with stool in the rectum and sigmoid. [place] likely constipation contributing to the patient's abdominal [...] 06/12/2024 Assessment & Plan (06/26/2024 12:08 AM GRAPHITE PAN DRIER TENDER): Complicated by left LE AKA. History of CVA (cerebrovascular accident) 2020 Assessment & Plan (06/26/2024 1:32 PM GRAPHITE PAN DRIER TENDER): - hx of RT parietal CVA- hx of dementia Cont asa and statin Essential hypertension 12/11/2020 Assessment & Plan (06/26/2024 1:30 PM GRAPHITE PAN DRIER TENDER): - on metoprolol and norvasc, held with soft BP 06-19 - resume metoprolol 06-21 -resume amlodipine 06-22 - Monitor Hyperlipidemia 12/11/2020 Assessment & Plan (06/12/2024 3:47 PM GRAPHITE PAN DRIER TENDER): - Continue home statin Seizure 12/10/2020 Assessment & Plan (06/26/2024 1:36 PM GRAPHITE PAN DRIER TENDER): History of seizure disorder secondary to traumatic brain injury. Currently on valproate, Vimpat, Keppra and Cobazam - Continue home medication, valproate level low at admit 48 on 06-12, 48 on 06-13, Valproic acid level 76 06-19 prior to dose, lacosamide level 1.4 on 06/12, 9.6 on 06-19 Followed by Neurology at [facility] Cognitive communication deficit 08/25/2020 [...] Smokeless Tobacco: Current Tobacco Cessation:Counseling Given: Yes [employer] Util[employer] Answer Date Recorded In the past 12 months has [employer], oil, or water [employer] threatened to shut off services in your [...] week 06/18/2024 How often do you attend [facility] or adventism services? Never 06/18/2024 Do you [...] time in the past 12 m [facility], were you homeless or living in a group home (including now)? No 06/18/2024 Personal Safety Answer Date Recorded Have you ever been in or are you currently in a harmful physical or emotional relationship or is someone making you feel afraid or unsafe? Denies 07/08/2024 Sex and Gender Information Value Date Recorded Sex Assigned at Not on file Legal Sex Male 6:11 AM GRAPHITE PAN DRIER TENDER Gender Identity Not on file Sexual Orientation Not on file Last Filed Vital Signs Vital Sign Reading Time Taken Comments Blood Pressure 145/83 07/09/2024 6:00 AM GRAPHITE PAN DRIER TENDER Pulse 91 07/09/2024 6:00 AM GRAPHITE PAN DRIER TENDER Temperature 36.5 C (97.7 F) 07/09/2024 6:31 AM GRAPHITE PAN DRIER TENDER Respiratory Rate 10 07/09/2024 6:00 AM GRAPHITE PAN DRIER TENDER Oxygen Saturation 100% 07/09/2024 6:00 AM GRAPHITE PAN DRIER TENDER Inhaled Oxygen Concentration - - Weight 79.8 kg (176 lb) 07/09/2024 2:16 AM GRAPHITE PAN DRIER TENDER Height 182.9 cm (6') 07/09/2024 2:16 AM GRAPHITE PAN DRIER TENDER Body Mass Index 23.87 07/09/2024 2:16 AM GRAPHITE PAN DRIER TENDER Plan of Treatment Not on file Procedures Procedure Name Priority Date/Time Associated Diagnosis Comments EGFR STAT 07/08/2024 8:56 PM GRAPHITE PAN DRIER TENDER HEPATITIS C ANTIBODY Routine 06/26/2024 3:21 PM GRAPHITE PAN DRIER TENDER HEMOGLOBIN A1C Routine 06/12/2024 3:30 PM GRAPHITE PAN DRIER TENDER TNI WITH LIPID PANEL Routine 08/24/2017 4:57 PM CDT from Last 3 Months or Most Recently Relevant to Health Maintenance Results * eGFR (07/08/2024 8:56 PM GRAPHITE PAN DRIER TENDER) eGFR >90 >=60 mL/min/1. 73 m2 [...] last reviewed 2021. Blood 07/08/2024 8:56 PM GRAPHITE PAN DRIER TENDER 07/08/2024 9:26 PM GRAPHITE PAN DRIER TENDER us Naa Tam MD LAB BLOOD ORDERABLES Fin al Result Performing Organization Address [facility] Co de Phone Number [facility] [place] [address] * Hepatitis C antibody Blood (06/26/2024 3:21 PM GRAPHITE PAN DRIER TENDER) Hep C Ab Nonreactive Nonreactive Comment:Antibodies to HCV no t detected. Does NOT exclude the possibility of recent exposure to HCV. Current interpretive data was last revised on 22 Blood 06/26/2024 3:21 PM GRAPHITE PAN DRIER TENDER 06/26/2024 3:41 PM GRAPHITE PAN DRIER TENDER us Kami Dupont MD LAB MICROBIOLOGY - GENERA L ORDERABLES Final Result Performing Organization Address [facility] Co de Phone Number [facility] Department [place] [address] * Hemoglobin A1c (06/12/2024 3:30 PM GRAPHITE PAN DRIER TENDER) Hgb A1C 4.9 4.0 - 5.6 % Estimated Average Glucose 94 mg/dL [facility] Comment: The ADA recommends reporting an estimated Average Glucose (eAG) with all Hemoglobin A1c results using the equation derived from a study of 507 normal and diabetic adults. Minority populations were underrepresented and children were not included. (Diabetes Care 2020; 43(S1): S66-S76). The eAG is not equivalent to a fasting glucose. Blood 06/12/2024 3:30 PM GRAPHITE PAN DRIER TENDER 06/12/2024 5:10 PM GRAPHITE PAN DRIER TENDER us Ryan Jauregui MD LAB BLOOD ORDERABLES Final Resul t [facility] Department [place] [address] * TNI with LIPID PANEL (08/24/2017 4:57 PM CDT) Troponin I < 0.300 0.000 - 0.300 ng/mL Comment: Reference using JERRICA Chemiluminescence Negative: Repeat in 4-6 hours as indicated. Triglycerides 34 0 - 199 mg/dL 08/24/2017 5:30 PM T [facility] Comment:12 hr pc highly avani mmended for Triglyceride Cholesterol 129 0 - 199 mg/dL 08/24/2017 5:30 PM T [facility] Comment: Borderline: 200-239 High Risk: >239 HDL Cholesterol 71 mg/dL 8 5:30 PM T [facility] HISTORICAL RESULTS Comment: Reference Ranges: Males: >=40 mg/dL Females: >=50 mg/dL LDL Cholesterol, Calc 51 0 - 130 mg/dL Comment:High Risk > 159 mg/d L Cholesterol/HDL Ratio 1.8 Comment: Cholesterol / HDL Ratio 3.5:1 or less is desirable. Cholesterol / HDL Ratio greater than 5:1 is considered higher risk for developing heart disease. 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 Source: [facility] Health. 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 Source: [facility] Health. 09/18/22 Acinetobacter os 09/18/2022 Insurance [facility] [place] [address] [address] [facility] [place] Advance Directives For more information, please contact: [phone] Documents on File Type Date Recorded Patient Nail Expert Expl anation ADVANCE DIRECTIVE 10/08/2012 12:00 AM SANDRA R OF [employer] DAT[employer]ASE DEVELOPER FINANCIAL/MEDICAL * Full Code (Latest Code Status on File) Date Activated Date Inactivated Comments 06/12/2024 3:22 PM 06/28/2024 9:30 PM * Full Code Date Activated Date Inactivated Comments 12/10/2020 9:05 AM 12/13/2020 10:44 PM Care Teams Juke Box Mechanic Relationship Specialty Start Date End Date Marielena Smallwood MD [address] [facility] [place] [address] PCP - General Family Practice 07/08/24
--- NOTE | 2024-12-13 09:24 | ED.GENADULT ---
HPI - General Adult General Chief complaint: Unspecified Stated complaint: pulled out trach x 2 Source: patient and EMS Mode of arrival: EMS Limitations: clinical condition History of Present Illness HPI narrative: 64-year-old with a history of CVA status post trach was brought in by EMS from the half-way with the complaints of dislodged tracheostomy cannula twice since this morning. As per the EMS he was suctioned couple times at the half-way and on his way to the ER. He was brought in for evaluation. Patient presently has no chest pain or cough or fever or chills. Related Data Home Medications ?Medication ?Instructions ?Recorded ?Confirmed ?Last Taken ?Type metoprolol tartrate 25 mg tablet 25 mg feeding tube BID 12/18/22 11/25/24 10/16/24 20:55 History 25 mg polyethylene glycol 3350 17 17 g feeding tube DAILY PRN 12/18/22 11/25/24 10/16/24 17:10 History gram/dose oral powder Constipation 17 grams bisacodyl 10 mg rectal suppository 10 mg RECTAL DAILY PRN Constipation 02/11/23 11/25/24 10/17/24 01:50 History 10 mg sennosides 8.6 mg tablet (senna) 8.6 mg feeding tube BID 02/11/23 11/25/24 10/16/24 10:00 History 8.6 mg guaifenesin 100 mg/5 mL oral liquid 300 mg feeding tube Q12H PRN Cough 07/08/23 11/25/24 10/17/24 05:50 History 300 mg magnesium hydroxide 400 mg/5 mL 30 ml feeding tube HS PRN 12/13/23 11/25/24 09/11/24 12:10 History oral suspension (Milk of Magnesia) Constipation 30 mL atorvastatin 40 mg tablet 40 mg feeding tube HS 02/10/24 11/25/24 10/16/24 21:00 History 40 mg calcium carbonate 500 mg/5 mL (as 1,250 mg feeding tube Q6H PRN 02/10/24 11/25/24 Unknown History calcium carb 1,250 mg/5 mL) oral Heartburn suspension folic acid 1 mg tablet 1 mg feeding tube DAILY 02/10/24 11/25/24 10/16/24 10:00 History 1 mg ipratropium 0.5 mg-albuterol 3 mg 3 ml inhalation Q6H PRN Shortness 02/10/24 11/25/24 Unknown History (2.5 mg base)/3 mL nebulization Of Breath soln magnesium citrate (Citroma oral 296 ml feeding tube DAILY PRN 02/10/24 11/25/24 Unknown History solution) Constipation thiamine HCl (vitamin B1) 100 mg 100 mg feeding tube DAILY 02/10/24 11/25/24 10/16/24 10:00 History tablet 100 mg acetaminophen 650 mg/20.3 mL oral 650 mg feeding tube Q4H PRN Pain 03/30/24 11/25/24 10/16/24 17:10 History suspension (Scale Score 1-3) 650 mg aspirin 81 mg chewable tablet 81 mg feeding tube DAILY 03/30/24 11/25/24 10/16/24 10:00 History 81 mg finasteride 5 mg tablet 5 mg feeding tube DAILY 10/18/24 11/25/24 10/16/24 10:00 History 5 mg glycopyrrolate 2 mg tablet 2 mg feeding tube Q8H 10/18/24 11/25/24 10/17/24 01:50 History 2 mg metoclopramide HCl 10 mg tablet 10 mg feeding tube Q6H PRN nausea 10/18/24 11/25/24 10/16/24 19:15 History and vomiting 10 mg ondansetron HCl 4 mg tablet 4 mg feeding tube Q6H PRN nausea 10/18/24 11/25/24 10/15/24 00:50 History and vomiting 4 mg pantoprazole 40 mg tablet,delayed 40 mg PO Q12H 10/18/24 11/25/24 10/16/24 17:10 History release 40 mg Allergies Allergy/AdvReac Type Severity Reaction Status Date / Time clonazepam AdvReac Unknown drowsiness Verified 12/13/24 07:33 Review of Systems Review of Systems: All systems reviewed & are unremarkable except as noted in HPI and below Constitutional: Constitutional: Reports no additional constitutional complaints Eyes: Eyes: Reports no additional eye complaints ENT: Reports system reviewed and no additional complaints, except as documented Cardiovascular: Cardiovascular: Reports no additional cardiovascular complaints Respiratory: Respiratory: Reports as per HPI Gastrointestinal: Gastrointestinal: Reports no additional gastrointestinal complaints Musculoskeletal: Musculoskeletal: Reports no additional musculoskeletal complaints PMFSH Past Medical History Medical History Acute lactic acidosis History of multiple strokes Residual expressive aphasia, dysphagia, and left-sided weakness. Esophagitis Anemia Aspiration pneumonia Elevated LFTs Atrial fibrillation with rapid ventricular response Thrombocytopenia Rash of face Lung collapse Right Mucus plugging of bronchi Increased tracheal secretions Epilepsy Intractable seizure disorder Status epilepticus Severe sepsis Tracheitis Sepsis with acute hypoxic respiratory failure Acute kidney injury UTI (urinary tract infection) Acute pancreatitis Diarrhea Cholecystitis Pancreatitis 09/2024 Deep venous thrombosis of upper extremity Benign prostatic hyperplasia Esophageal diverticulum Gastroparesis Iron deficiency anemia Vascular dementia with psychotic disturbance Surgical History Surgical History History of gastrostomy tube placement (07/09/23) History of tracheostomy History of left above knee amputation Family History Family History Other Unknown family medical history Social History Social History Social History: Surrogate medical decision maker: Adriane Hilliard, sibling. Code status: Full code. 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 HEAD: Normocephalic, atraumatic. EYES: PERRLA and EOMI. ENT: Nares clear, no rhinorrhea or epistaxis. Mucous membranes moist. NECK: Supple. Trach collar in place CHEST: Clear to auscultation. No respiratory distress. HEART: Regular rate and rhythm. No murmur heard. Normal peripheral pulses. EXTREMITIES: Normal range of motion. No edema. SKIN: Warm, dry, no rash. NEURO: At Baseline PSYCH: Normal mood and affect. Course Course Emergency Course: Respiratory was here to evaluate the trach collar everything seems to be in place . Vital Signs Vital signs: Vital Signs Pulse Rate 106 H 12/13/24 07:30 Respiratory Rate 20 12/13/24 07:30 Blood Pressure 146/97 H 12/13/24 07:30 Pulse Oximetry 98 12/13/24 07:30 Temperature 36.7 C 12/13/24 07:33 Pulse Rate 107 H 12/13/24 08:45 Respiratory Rate 15 12/13/24 08:45 Blood Pressure 145/103 H 12/13/24 08:41 Pulse Oximetry 100 12/13/24 08:45 Oxygen Delivery Room Air 12/13/24 07:33 Medical Decision Making Medical Records Medical records reviewed: Yes I reviewed the external patient's medical records. Vital Signs Vital Signs: Vital Signs Pulse Rate 106 H 12/13/24 07:30 Respiratory Rate 20 12/13/24 07:30 Blood Pressure 146/97 H 12/13/24 07:30 Pulse Oximetry 98 12/13/24 07:30 Temperature 36.7 C 12/13/24 07:33 Pulse Rate 107 H 12/13/24 08:45 Respiratory Rate 15 12/13/24 08:45 Blood Pressure 145/103 H 12/13/24 08:41 Pulse Oximetry 100 12/13/24 08:45 Oxygen Delivery Room Air 12/13/24 07:33 Imaging Data Radiologist's impression: ITS Impressions Chest X-Ray 12/13/24 09:10 IMPRESSION: No acute cardiopulmonary pathology. Discharge Plan Discharge Clinical Impression: Tracheostomy care Patient Disposition: NH Snf/Asst Living Condition: Stable Instructions: Antibiotic Form, Tracheostomy Care (ED) Patient Language: Nepali Prescriptions: No Action bisacodyl 10 mg Suppository 10 mg RECTAL DAILY PRN (Reason: Constipation) Rx Instructions: if no results for MOM sennosides [senna] 8.6 mg Tablet 8.6 mg feeding tube BID guaifenesin 100 mg/5 mL liquid 300 mg feeding tube Q12H PRN (Reason: Cough) magnesium hydroxide [Milk of Magnesia] 400 mg/5 mL Suspension 30 ml feeding tube HS PRN (Reason: Constipation) Rx Instructions: If no BM in 3 days amoxicillin-pot clavulanate 400-57 mg/5 mL Suspension For Reconstitution 5 ml feeding tube Q8HR Qty: 90 0RF metoclopramide HCl [Reglan] 10 mg tablet 10 mg feeding tube Q6H PRN (Reason: nausea and vomiting) Qty: 30 0RF polyethylene glycol 3350 17 gram/dose powder 17 g feeding tube DAILY PRN (Reason: Constipation) metoprolol tartrate 25 mg tablet 25 mg feeding tube BID atorvastatin 40 mg tablet 40 mg feeding tube HS ipratropium-albuterol 0.5 mg-3 mg(2.5 mg base)/3 mL solution for nebulization 3 ml INHALATION Q6H PRN (Reason: Shortness Of Breath) thiamine HCl (vitamin B1) 100 mg Tablet 100 mg feeding tube DAILY magnesium citrate [Citroma] Solution 296 ml feeding tube DAILY PRN (Reason: Constipation) Rx Instructions: if no results from enema folic acid 1 mg tablet 1 mg feeding tube DAILY calcium carbonate 500 mg/5 mL (1,250 mg/5 mL) Suspension 1,250 mg feeding tube Q6H PRN (Reason: Heartburn) aspirin 81 mg Tablet,Chewable 81 mg feeding tube DAILY acetaminophen 650 mg/20.3 mL Suspension 650 mg feeding tube Q4H PRN (Reason: Pain (Scale Score 1-3)) finasteride 5 mg tablet 5 mg feeding tube DAILY glycopyrrolate 2 mg tablet 2 mg feeding tube Q8H metoclopramide HCl 10 mg tablet 10 mg feeding tube Q6H PRN (Reason: nausea and vomiting) ondansetron HCl 4 mg tablet 4 mg feeding tube Q6H PRN (Reason: nausea and vomiting) pantoprazole 40 mg tablet,delayed release (DR/EC) 40 mg PO Q12H amlodipine [Norvasc] 5 mg Tablet 5 mg feeding tube DAILY 30 Days Qty: 30 1RF isosorbide dinitrate 5 mg Tablet 5 mg feeding tube TID 30 Days Qty: 90 1RF levetiracetam 100 mg/mL solution 2,000 mg feeding tube BID 30 Days Qty: 0 1RF lacosamide 10 mg/mL solution 250 mg feeding tube BID 30 Days Qty: 200 2RF Follow-up/Referrals: Dany Monsivais MD [Physician] - PHYSICIAN NOT ON STAFF,NONSTAFF [Primary Care Provider] - Time of Disposition: 09:25
== END 2024-12-13 13:26 ==
PROVIDERS: Emergency Provider Family Medicine
DX: Z43.0 Encounter for attention to tracheostomy (principal); F01.52 Vascular dementia, unspecified severity, with psychotic disturbance; I69.920 Aphasia following unspecified cerebrovascular disease; I69.991 Dysphagia following unspecified cerebrovascular disease; R13.10 Dysphagia, unspecified; I69.954 Hemiplegia and hemiparesis following unspecified cerebrovascular disease affecting left non-dominant side; I48.91 Unspecified atrial fibrillation; G40.909 Epilepsy, unspecified, not intractable, without status epilepticus; J44.9 Chronic obstructive pulmonary disease, unspecified; D50.9 Iron deficiency anemia, unspecified; K31.84 Gastroparesis; N40.0 Benign prostatic hyperplasia without lower urinary tract symptoms; Z86.718 Personal history of other venous thrombosis and embolism; Z87.891 Personal history of nicotine dependence; Z87.440 Personal history of urinary (tract) infections; Z89.612 Acquired absence of left leg above knee; Z79.01 Long term (current) use of anticoagulants; Z79.899 Other long term (current) drug therapy
CPT/HCPCS: 71045; 99284

== ENCOUNTER 2024-12-15 01:29 | Emergency (ER) | payer OTHER, SELFPAY ==
--- NOTE | ~2024-12-15 | XR_ITS ---
XR chest 1V portable 12/15/2024 02:00 Indication: Chest pain Procedure: AP portable chest Comparison: Comparison to multiple prior studies sequentially, with oldest reviewed study dated 11/19. Findings: Tracheostomy tube present. Borderline heart size. Right lung clear. Retrocardiac opacificat ion may represent atelectasis or pneumonia. No significant effusion or pneumothorax. Impression: 1: Retrocardiac opacification may represent atelectasis or pneumonia. Reviewed, dictated and finalized at location [facility]. Impression: 1: Retrocardiac opacification may represent atelectasis or pneumonia.
--- NOTE | ~2024-12-15 | CT_ITS ---
Clinical Indication: Chest pain, tachycardia CT Scan of the Chest with Contrast: Technique: Contiguous sections were acquired throughout the chest after intravenous administration of 100 cc of Omnipaque 350. Dose reduction technique was used on this scan by utilizing automated expos ure control and iterative reconstruction technique. The dose-length product (DLP) was 456.83 mGy-cm. COMPARISON: 11/23/2024 Findings: There is no evidence of any significant mediastinal, hilar or axillary lymphadenopathy. There is no f illing defect in the pulmonary arterial tree to suggest pulmonary embolus. There is no evidence of ao rtic dissection or aneurysm. There is no evidence of pleural or pericardial effusion. The lungs are clear, aside from mild atelectatic change. Probable mild emphysema. Images through the upper abdomen reveal no abnormalities. Impression: No evidence of pulmonary embolus, aortic dissection, or aortic aneurysm. Probable mild emphysema. Reviewed, dictated and finalized at [facility]. Impression: No evidence of pulmonary embolus, aortic dissection, or aortic aneurysm. Probable mild emphysema.
--- NOTE | 2024-12-15 01:35 | ECG_ITS ---
Test Date: 2024-12-15 01:38:25 Measurements Intervals [place]st Rate: 124 P: 79 VA: 166 QRS: -37 QRSD: 81 T: 93 QT: 318 QTc: 457 Interpretive Statements SINUS TACHYCARDIA SEPTAL MYOCARDIAL INFARCTION , OF INDETERMINATE AGE [40+ ms Q WAVE IN V1/V2] INFERIOR MYOCARDIAL INFARCTION , OF INDETERMINATE AGE [40+ ms Q WAVE AND/OR ST/T ABNORMALITY IN II/aVF] ABNORMAL ECG Compared to ECG 11/24/2024 16:19:15 No significant changes Electronically Signed On 12-15-2024 08:53:12 CDT by Chai Lentz M.D.
[2024-12-15 01:40] VITALS: BP 162/99; PULSE 127; RESP 20; TEMP 37; O2SAT 97
[2024-12-15 02:06] LABS: Hematocrit 41.0 % (42.0-52.0); Hemoglobin 13.5 g/dL (14.0-18.0); Immature Granulocyte Percent A 0.1 % (0-0.5); Lymphocytes Absolute Auto 2.25 K/mm3 (0.9-3.2); Mean Corpuscular HGB Conc 32.9 g/dl (32-36); Mean Corpuscular Hemoglobin 31.6 pg (26-34); Mean Corpuscular Volume 96.0 fl (80-100); Nucleated Red Blood Cells Absolute Auto 0.000 K/mm3 (0.0-0.012); Nucleated Red Blood Cells Perc 0.0 % (0.0-0.2); Platelet Count Result 197 k/mm3 (150-375); Red Blood Count 4.27 M/mm3 (4.6-6.20); White Blood Count 7.6 K/mm3 (4.5-10.0)
[2024-12-15 02:18] LABS: INR 1.0; Partial Thromboplastin Time 32.1 Seconds (22.3-36.8); Prothrombin Time 13.2 Seconds (11.1-14.7)
[2024-12-15 02:56] LABS: Alanine Aminotransferase 76 U/L (6-50); Albumin Level 4.6 g/dL (3.5-5.1); Alkaline Phosphatase 97 U/L (38-126); Aspartate Amino Transferase 65 U/L (17-59); Bilirubin,Total 0.6 mg/dL (0.2-1.3); Blood Urea Nitrogen 15 mg/dL (9-20); Calcium 9.6 mg/dL (8.4-10.2); Carbon Dioxide 26 mmol/L (22-30); Estimated Glomerular Filt Rate > 60; Glucose 115 mg/dL (65-110); Lipase 97 U/L (23-300); Total Protein 8.9 g/dL (6.3-8.2)
--- OUTSIDE RECORDS SUMMARY | 2024-12-15 03:09 | XMS_ITS | Encounter Summary ---
Author Organization [facility] Health Address [address] [place] [address] Care Team Providers Care Supervisor Production Managing Name Role Phone Elizabeth Sullivan RN Unavailable [phone] Jack Arroyo MD Primary Care Provider Rosie marsh Reason for Visit * Reason Onset Date Comments Appointment 11/05/2024 Encounter Details Date Type Department Care Team (Late st Contact Info) Description 11/05/2024 Telephone [facility] - Centralized Scheduling [address] [place] [address] Alden Hurtado MD [address] [place] [address] Appointment Social History Tobacco Use Types Packs/Day [...] heating? Not hard at all 08/06/2024 [facility] - Occupational [...] any time in the past 12 m [facility], were you homeless or living in a prison (including now)? No 08/06/2024 Sex and Gender Information Value Date Recorded Sex Assigned at Not on file Legal Sex Male 5:07 PM MEMBER SERVICE SPECIALIST Gender Identity Not on file Sexual [...] Office Visit [facility] - GI [address] [place] [phone] 03/06/2025 10:00 AM CDT Office Visit [facility] - Neurology [address] [place] [phone] Saloni King, TRUCK DISPATCHER-HOME COORDINATOR [address] [place] [phone] documented as of this encounter Visit Diagnoses Not on filedocumented in this encounter Additional Health Concerns Infection Onset Date Last Indicated Resolved Time 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 Source: [facility]. 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 John Seipel Infection Prevention 09/18/2022 MDRO Hx 09/18/2022 11/27/2024 MRSA 06/11/2023 06/11/2023 11/27/2024 7:23 AM CDT MRSA Hx 06/11/2023 11/27/2024 documented as of this encounter Care Teams Supervisor Production Managing Relationship Specialty Start Date End Date Jack Arroyo MD [address] [place] [address] PCP - General 10/17/24 Elizabeth Sullivan, RN Seed Corn Production Manager 10/14/17 documented as of this encounter
--- OUTSIDE RECORDS SUMMARY | 2024-12-15 03:09 | XMS_ITS | Encounter Summary ---
Author Organization [facility] Address [address] [place] [address] Care Team Providers Care Waiter/Waitress Cafeteria Name Role Phone Frank Toure MD Unavailable Misael Maradiaga DO Primary Care Provider [phone] Joyce Luevano NP Primary Care Provider Unavaila Marielena Adame MD Primary Care Provider [phone] Encounter Details Date Type Department Care Team (Late st Contact Info) Description 12/14/2018 Hospital Follow-up Call [facility] [place] [address] Cony Adan RN Social History Tobacco Use [...] on filedocumented in this encounter Care Teams Waiter/Waitress Cafeteria Relationship Specialty Start Date End Date Misael Maradiaga DO [address] [place] [address] PCP - General FAMILY PRACTICE 09/28/18 01/13/20 Joyce Luevano NP [address] [place] [address] PCP - General NURSE PRACTITIONER 01/14/20 10/26/23 Marielena Smallwood MD [address] [place] [address] PCP - General FAMILY PRACTICE 10/27/23 Frank Toure MD [address] [place] [address] [employer] Precipitation Equipment Tender CARDIOVASCULAR DISEASE 05/30/16 documented as of this encounter
--- OUTSIDE RECORDS SUMMARY | 2024-12-15 03:09 | XMS_ITS | Clinical Summary ---
Author Organization [facility] Address [address] [place] [address] Care Team Providers Care Launch Engineer Name Role Phone Marielena Smallwood MD Primary [...] 06/28/2024 Assessment & Plan (06/28/2024 11:42 AM CONDUCTOR SLEEPING CAR): Now back on full TF's sugars running mildly high. Monitor with q4 accuchecks and SSI. Hypophosphatemia 06/27/2024 Assessment & Plan (06/28/2024 11:44 AM CONDUCTOR SLEEPING CAR): <0.7 ? 2/2 refeeding syndrome. Started on neutraphos 2pkg QID 06/26. Still Phos<0.7 06/27. Tx with IV NaPhos 30mmoles and cont per tube replacement and monitor closely. -06/28: Phos=3.3, reduce nuetraphos to 1 PKG BID and monitor History of DVT (deep vein thrombosis) 06/26/2024 Assessment & Plan (06/26/2024 1:32 PM CONDUCTOR SLEEPING CAR): -On anticoagulation with Eliquis 5 mg po BID for hx of DVT -per chart review hx of Left Subclavian vein DVT diagnosed 08/01/23 H/O: GI bleed 06/25/2024 Assessment & Plan (06/26/2024 1:32 PM CONDUCTOR SLEEPING CAR): - [facility] ( [facility] [...] 06/25/2024 Assessment & Plan (06/26/2024 1:36 PM CONDUCTOR SLEEPING CAR): Tracheostomy dependence, has a Shiley #4 cuffed. Pt followed at [facility], per notes trach in place for pulmonary toilet due to his copious secretions and ongoing aspiration of his secretions. -needing frequent suctioning -sats stable on 28% FIO2 by HHTC -Was getting VEST at [facility] Low grade fever 06/20/2024 Assessment & Plan (06/26/2024 1:34 PM CONDUCTOR SLEEPING CAR): Low-grade fever and tachycardia, softer BP after [...] 06/17/2024 Assessment & Plan (06/28/2024 11:43 AM CONDUCTOR SLEEPING CAR): -patient at admission with a G tube, was getting continous tube feedings at [facility] and not tolerating, -was changed [...] tube fell off and pt had 18 Eritrean G tube placed at [facility] ED on 04/21/24 (records on care everywhere)and after that he has not tolerated well tube feedings per discussion with his sister Ms Hilliard,Adriane [phone] POA - consulted IR 06-20-24 for conversion [...] goal 06/25, adjust FWF per hydration status, public works manager to follow up -On full TF's-osmolite 1.5. Phos repleted. Copious oral secretions 06/13/2024 Assessment & Plan (06/26/2024 1:29 PM CONDUCTOR SLEEPING CAR): Patient on chronic glycopyrrolate due to secretions, held at admission 2/ to potential for constipation with plan to add back when he's had a bowel movements -resume on 06-19- hold on 06-20 due to somnolence. Suction PRN - restart glycopyrrolate 1mg BID 06/26 and monitor Abdominal pain 06/12/2024 Assessment & Plan (06/26/2024 1:23 PM CONDUCTOR SLEEPING CAR): -p/w abdominal distention from SNF to ED on 06-12 ,reported biliary emesis per longterm (approximately 300 cc) , not associated fevers or change in bowel habits. Feeding tube placed to gravity drainage in ED H&P notes regular bowel movements. CT scan on 06-12 in ED with stool in the rectum and sigmoid. [place] likely constipation contributing to the patient's abdominal [...] 06/12/2024 Assessment & Plan (06/26/2024 12:08 AM CONDUCTOR SLEEPING CAR): Complicated by left LE AKA. History of CVA (cerebrovascular accident) 2020 Assessment & Plan (06/26/2024 1:32 PM CONDUCTOR SLEEPING CAR): - hx of RT parietal CVA- hx of dementia Cont asa and statin Essential hypertension 12/11/2020 Assessment & Plan (06/26/2024 1:30 PM CONDUCTOR SLEEPING CAR): - on metoprolol and norvasc, held with soft BP 06-19 - resume metoprolol 06-21 -resume amlodipine 06-22 - Monitor Hyperlipidemia 12/11/2020 Assessment & Plan (06/12/2024 3:47 PM CONDUCTOR SLEEPING CAR): - Continue home statin Seizure 12/10/2020 Assessment & Plan (06/26/2024 1:36 PM CONDUCTOR SLEEPING CAR): History of seizure disorder secondary to traumatic brain injury. Currently on valproate, Vimpat, Keppra and Cobazam - Continue home medication, valproate level low at admit 48 on 06-12, 48 on 06-13, Valproic acid level 76 06-19 prior to dose, lacosamide level 1.4 on 06/12, 9.6 on 06-19 Followed by Neurology at [facility] Cognitive communication deficit 08/25/2020 Cerebrovascular accident [...] h recurrent seizures (HCC) Followed up at [facility] ([facility]) Degenerative cervical spinal stenosis Family History Medical History Relation Name Comments Coronary artery disease Father Stroke Father Hypertension Mother Relation Name Status Comments Father Mother Social History Tobacco Use Types Packs/Day Years Used Date Smoking Tobacco: Former Cigarettes Smokeless Tobacco: Current Tobacco Cessation:Counseling Given: Yes [facility] Utilities Answer Date Recorded In [...] often do you attend chur ch or jewish services? Never 06/18/2024 Do you belong to any clubs o r organizations such as buddhist groups, unions, fraternal or athletic groups, or [...] any time in the past 12 m [facility], were you homeless or living in a care home (including now)? No 06/18/2024 Personal Safety Answer Date Recorded Have you ever been in or are you currently in a harmful physical or emotional relationship or is someone making you feel afraid or unsafe? Denies 07/08/2024 Sex and Gender Information Value Date Recorded Sex Assigned at Not on file Legal Sex Male 6:11 AM CONDUCTOR SLEEPING CAR Gender Identity Not on file Sexual Orientation Not on file Obstetrics History Last Filed Vital Signs Vital Sign Reading Time Taken Comments Blood Pressure 145/83 07/09/2024 6:00 AM CONDUCTOR SLEEPING CAR Pulse 91 07/09/2024 6:00 AM CONDUCTOR SLEEPING CAR Temperature 36.5 C (97.7 F) 07/09/2024 6:31 AM CONDUCTOR SLEEPING CAR Respiratory Rate 10 07/09/2024 6:00 AM CONDUCTOR SLEEPING CAR Oxygen Saturation 100% 07/09/2024 6:00 AM CONDUCTOR SLEEPING CAR Inhaled Oxygen Concentration - - Weight 79.8 kg (176 lb) 07/09/2024 2:16 AM CONDUCTOR SLEEPING CAR Height 182.9 cm (6') 07/09/2024 2:16 AM CONDUCTOR SLEEPING CAR Body Mass Index 23.87 07/09/2024 2:16 AM CONDUCTOR SLEEPING CAR Plan of Treatment Health Maintenance Due Date [...] Diagnosis Comments EGFR STAT 07/08/2024 8:56 PM CONDUCTOR SLEEPING CAR HEPATITIS C ANTIBODY Routine 06/26/2024 3:21 PM CONDUCTOR SLEEPING CAR HEMOGLOBIN A1C Routine 06/12/2024 3:30 PM CONDUCTOR SLEEPING CAR TNI WITH LIPID PANEL Routine 08/24/2017 4:57 PM CDT from Last 3 Months or Most Recently Relevant to Health Maintenance Results * eGFR (07/08/2024 8:56 PM CONDUCTOR SLEEPING CAR) eGFR >90 >=60 mL/min/1. 73 m2 Comment: [...] last reviewed 2021. Blood 07/08/2024 8:56 PM CONDUCTOR SLEEPING CAR 07/08/2024 9:26 PM CONDUCTOR SLEEPING CAR Naa Tam MD LAB BLOOD ORDERABLES Fin al Result Performing Organization Address [facility] de Phone Number [facility] Department [place] [address] * Hepatitis C antibody Blood (06/26/2024 3:21 PM CONDUCTOR SLEEPING CAR) [facility] Hep C Ab Nonreactive Nonreactive Comment:Antibodies to HCV no t detected. Does NOT exclude the possibility of recent exposure to HCV. Current interpretive data was last revised on 22 Blood 06/26/2024 3:21 PM CONDUCTOR SLEEPING CAR 06/26/2024 3:41 PM CONDUCTOR SLEEPING CAR Result [facility] Kami Dupont MD LAB MICROBIOLOGY - GENERA L ORDERABLES Final Result Performing Organization Address [facility] de Phone Number [facility] Department [place] [address] * Hemoglobin A1c (06/12/2024 3:30 PM CONDUCTOR SLEEPING CAR) Pathologist [facility] Hgb A1C 4.9 4.0 - 5.6 % Estimated Average Glucose 94 mg/dL [facility] Comment: The ADA recommends reporting an estimated Average Glucose (eAG) with all Hemoglobin A1c results using the equation derived from a study of 507 normal and diabetic adults. Minority populations were underrepresented and children were not included. (Diabetes Care 2020; 43(S1): S66-S76). The eAG is not equivalent to a fasting glucose. Blood 06/12/2024 3:30 PM CONDUCTOR SLEEPING CAR 06/12/2024 5:10 PM CONDUCTOR SLEEPING CAR Ryan Jauregui MD LAB BLOOD ORDERABLES Final Resul t CAMERON Simpson [facility] Department [place] [address] * TNI with LIPID PANEL (08/24/2017 4:57 PM CDT) Troponin I < 0.300 0.000 - 0.300 ng/mL 08/24/2017 5:29 PM CDT [facility] [employer] HISTORICAL RESULTS Comment: Reference using JERRICA Chemiluminescence Negative: Repeat in 4-6 hours as indicated. Triglycerides 34 0 - 199 mg/dL 08/24/2017 5:30 PM T [facility] [employer] HISTORICAL RESULTS Comment:12 hr pc highly avani mmended for Triglyceride Cholesterol 129 0 - 199 mg/dL 08/24/2017 5:30 PM T [facility] [employer] HISTORICAL RESULTS Comment: Borderline: 200-239 High Risk: >239 HDL Cholesterol 71 mg/dL 8 5:30 PM T [facility] [employer] HISTORICAL RESULTS Comment: Reference Ranges: Males: >=40 mg/dL Females: >=50 mg/dL LDL Cholesterol, Calc 51 0 - 130 mg/dL 08/24/2017 5:30 PM T [facility] [employer] HISTORICAL RESULTS Comment:High Risk > 159 mg/d L Cholesterol/HDL Ratio 1.8 08/24/2017 5:30 PM T [facility] [employer] HISTORICAL RESULTS Comment: Cholesterol / HDL Ratio 3.5:1 or less is desirable. Cholesterol / HDL Ratio greater than 5:1 is considered higher risk for developing heart disease. 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 Source: [facility]. 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 Source: [facility]. 09/18/22 Acinetobacter os 09/18/2022 Insurance [facility] [place] [address] [place] [facility] D[place] Advance Directives For more information, please contact: [phone] Documents on File Type Date Recorded Patient Packaging Manager Expl anation ADVANCE DIRECTIVE 10/08/2012 12:00 AM SANDRA R OF CASINO BEVERAGE SERVER FINANCIAL/MEDICAL * Full Code (Latest Code Status on File) Date Activated Date Inactivated Comments 06/12/2024 3:22 PM 06/28/2024 9:30 PM * Full Code Date Activated Date Inactivated Comments 12/10/2020 9:05 AM 12/13/2020 10:44 PM Care Teams Launch Engineer Relationship Specialty Start Date End Date Marielena Smallwood MD [facility] [place] [address] PCP - General Family Practice 07/08/24
--- OUTSIDE RECORDS SUMMARY | 2024-12-15 03:09 | XMS_ITS | Referral Summary ---
Author Organization [facility] Address [address] [place] [address] Care Team Providers Care Right Of Way Supervisor Name Role Phone Marielena Smallwood MD Primary [...] 06/28/2024 Assessment & Plan (06/28/2024 11:42 AM MORTAR CARRIER): Now back on full TF's sugars running mildly high. Monitor with q4 accuchecks and SSI. Hypophosphatemia 06/27/2024 Assessment & Plan (06/28/2024 11:44 AM MORTAR CARRIER): <0.7 ? 2/2 refeeding syndrome. Started on neutraphos 2pkg QID 06/26. Still Phos<0.7 06/27. Tx with IV NaPhos 30mmoles and cont per tube replacement and monitor closely. -06/28: Phos=3.3, reduce nuetraphos to 1 PKG BID and monitor History of DVT (deep vein thrombosis) 06/26/2024 Assessment & Plan (06/26/2024 1:32 PM MORTAR CARRIER): -On anticoagulation with Eliquis 5 mg po BID for hx of DVT -per chart review hx of Left Subclavian vein DVT diagnosed 08/01/23 H/O: GI bleed 06/25/2024 Assessment & Plan (06/26/2024 1:32 PM MORTAR CARRIER): - [facility] ( [facility] [...] 06/25/2024 Assessment & Plan (06/26/2024 1:36 PM MORTAR CARRIER): Tracheostomy dependence, has a Shiley #4 cuffed. Pt followed at [facility], per notes trach in place for pulmonary toilet due to his copious secretions and ongoing aspiration of his secretions. -needing frequent suctioning -sats stable on 28% FIO2 by HHTC -Was getting VEST at [facility] Low grade fever 06/20/2024 Assessment & Plan (06/26/2024 1:34 PM MORTAR CARRIER): Low-grade fever and tachycardia, softer BP after [...] 06/17/2024 Assessment & Plan (06/28/2024 11:43 AM MORTAR CARRIER): -patient at admission with a G tube, was getting continous tube feedings at [facility] and not tolerating, -was changed [...] tube fell off and pt had 18 Kyrgyz G tube placed at [facility] ED on 04/21/24 (records on care everywhere)and after that he has not tolerated well tube feedings per discussion with his sister Ms Hilliard,Adriane [phone] POA - consulted IR 06-20-24 for conversion [...] goal 06/25, adjust FWF per hydration status, advertising strategist to follow up -On full TF's-osmolite 1.5. Phos repleted. Copious oral secretions 06/13/2024 Assessment & Plan (06/26/2024 1:29 PM MORTAR CARRIER): Patient on chronic glycopyrrolate due to secretions, held at admission 2/ to potential for constipation with plan to add back when he's had a bowel movements -resume on 06-19- hold on 06-20 due to somnolence. Suction PRN - restart glycopyrrolate 1mg BID 06/26 and monitor Abdominal pain 06/12/2024 Assessment & Plan (06/26/2024 1:23 PM MORTAR CARRIER): -p/w abdominal distention from SNF to ED on 06-12 ,reported biliary emesis per snf (approximately 300 cc) , not associated fevers or change in bowel habits. Feeding tube placed to gravity drainage in ED H&P notes regular bowel movements. CT scan on 06-12 in ED with stool in the rectum and sigmoid. [place] likely constipation contributing to the patient's abdominal [...] 06/12/2024 Assessment & Plan (06/26/2024 12:08 AM MORTAR CARRIER): Complicated by left LE AKA. History of CVA (cerebrovascular accident) 2020 Assessment & Plan (06/26/2024 1:32 PM MORTAR CARRIER): - hx of RT parietal CVA- hx of dementia Cont asa and statin Essential hypertension 12/11/2020 Assessment & Plan (06/26/2024 1:30 PM MORTAR CARRIER): - on metoprolol and norvasc, held with soft BP 06-19 - resume metoprolol 06-21 -resume amlodipine 06-22 - Monitor Hyperlipidemia 12/11/2020 Assessment & Plan (06/12/2024 3:47 PM MORTAR CARRIER): - Continue home statin Seizure 12/10/2020 Assessment & Plan (06/26/2024 1:36 PM MORTAR CARRIER): History of seizure disorder secondary to traumatic brain injury. Currently on valproate, Vimpat, Keppra and Cobazam - Continue home medication, valproate level low at admit 48 on 06-12, 48 on 06-13, Valproic acid level 76 06-19 prior to dose, lacosamide level 1.4 on 06/12, 9.6 on 06-19 Followed by Neurology at [facility] Cognitive communication deficit 08/25/2020 Cerebrovascular accident [...] Smokeless Tobacco: Current Tobacco Cessation:Counseling Given: Yes [employer] Utilities Answer Date Recorded In the past 12 months has [employer], oil, or water [employer] threatened to shut off services in your [...] week 06/18/2024 How often do you attend [facility] or religion services? Never 06/18/2024 Do you belong to any clubs o r organizations such as christianity groups, unions, fraternal or athletic groups, or [...] any time in the past 12 m [facility], were you homeless or living in a nursing home (including now)? No 06/18/2024 Personal Safety Answer Date Recorded Have you ever been in or are you currently in a harmful physical or emotional relationship or is someone making you feel afraid or unsafe? Denies 07/08/2024 Sex and Gender Information Value Date Recorded Sex Assigned at Not on file Legal Sex Male 6:11 AM MORTAR CARRIER Gender Identity Not on file Sexual Orientation Not on file Last Filed Vital Signs Vital Sign Reading Time Taken Comments Blood Pressure 145/83 07/09/2024 6:00 AM MORTAR CARRIER Pulse 91 07/09/2024 6:00 AM MORTAR CARRIER Temperature 36.5 C (97.7 F) 07/09/2024 6:31 AM MORTAR CARRIER Respiratory Rate 10 07/09/2024 6:00 AM MORTAR CARRIER Oxygen Saturation 100% 07/09/2024 6:00 AM MORTAR CARRIER Inhaled Oxygen Concentration - - Weight 79.8 kg (176 lb) 07/09/2024 2:16 AM MORTAR CARRIER Height 182.9 cm (6') 07/09/2024 2:16 AM MORTAR CARRIER Body Mass Index 23.87 07/09/2024 2:16 AM MORTAR CARRIER Plan of Treatment Not on file Procedures Procedure Name Priority Date/Time Associated Diagnosis Comments EGFR STAT 07/08/2024 8:56 PM MORTAR CARRIER HEPATITIS C ANTIBODY Routine 06/26/2024 3:21 PM MORTAR CARRIER HEMOGLOBIN A1C Routine 06/12/2024 3:30 PM MORTAR CARRIER TNI WITH LIPID PANEL Routine 08/24/2017 4:57 PM CDT from Last 3 Months or Most Recently Relevant to Health Maintenance Results * eGFR (07/08/2024 8:56 PM MORTAR CARRIER) eGFR >90 >=60 mL/min/1. 73 m2 Comment: [...] last reviewed 2021. Blood 07/08/2024 8:56 PM MORTAR CARRIER 07/08/2024 9:26 PM MORTAR CARRIER us Naa Tam MD LAB BLOOD ORDERABLES Fin al Result Performing Organization Address [facility] [[email or web address]] Co de Phone Number [facility] [place] [address] * Hepatitis C antibody Blood (06/26/2024 3:21 PM MORTAR CARRIER) Hep C Ab Nonreactive Nonreactive Comment:Antibodies to HCV no t detected. Does NOT exclude the possibility of recent exposure to HCV. Current interpretive data was last revised on 22 Blood 06/26/2024 3:21 PM MORTAR CARRIER 06/26/2024 3:41 PM MORTAR CARRIER us Kami Dupont MD LAB MICROBIOLOGY - GENERA L ORDERABLES Final Result Performing Organization Address [facility] [[email or web address]] Co de Phone Number [facility] Department [place] [address] * Hemoglobin A1c (06/12/2024 3:30 PM MORTAR CARRIER) Hgb A1C 4.9 4.0 - 5.6 % Estimated Average Glucose 94 mg/dL [facility] Comment: The ADA recommends reporting an estimated Average Glucose (eAG) with all Hemoglobin A1c results using the equation derived from a study of 507 normal and diabetic adults. Minority populations were underrepresented and children were not included. (Diabetes Care 2020; 43(S1): S66-S76). The eAG is not equivalent to a fasting glucose. Blood 06/12/2024 3:30 PM MORTAR CARRIER 06/12/2024 5:10 PM MORTAR CARRIER us Ryan Jauregui MD LAB BLOOD ORDERABLES Final Resul t CAMERON Simpson [facility] Department [place] [address] * TNI with LIPID PANEL (08/24/2017 4:57 PM CDT) Troponin I < 0.300 0.000 - 0.300 ng/mL Comment: Reference using JERRICA Chemiluminescence Negative: Repeat in 4-6 hours as indicated. Triglycerides 34 0 - 199 mg/dL 08/24/2017 5:30 PM T [facility] HISTORICAL RESULTS Comment:12 hr pc highly avani mmended for Triglyceride Cholesterol 129 0 - 199 mg/dL 08/24/2017 5:30 PM T [facility] HISTORICAL RESULTS Comment: Borderline: 200-239 High Risk: >239 HDL Cholesterol 71 mg/dL 8 5:30 PM T [facility] HISTORICAL RESULTS Comment: Reference Ranges: [...] PM CDT 08/24/2017 4:59 PM CDT Narrative 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 Source: [facility] Health. 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 Source: [facility] Health. 09/18/22 Acinetobacter os 09/18/2022 Insurance [facility] [place] [address] [place] [address] [facility] [place] Advance Directives For more information, please contact: [phone] Documents on File Type Date Recorded Patient Speech Communication Professor Expl anation ADVANCE DIRECTIVE 10/08/2012 12:00 AM SANDRA R OF LOCOMOTIVE ENGINEER FINANCIAL/MEDICAL * Full Code (Latest Code Status on File) Date Activated Date Inactivated Comments 06/12/2024 3:22 PM 06/28/2024 9:30 PM * Full Code Date Activated Date Inactivated Comments 12/10/2020 9:05 AM 12/13/2020 10:44 PM Care Teams Right Of Way Supervisor Relationship Specialty Start Date End Date Marielena Smallwood MD [address] [facility] [place] [address] PCP - General Family Practice 07/08/24
--- OUTSIDE RECORDS SUMMARY | 2024-12-15 03:09 | XMS_ITS | Encounter Summary ---
Author Organization [facility] Address [address] [place] [address] Care Team Providers Care Channeler Runner Name Role Phone Frank Toure MD Unavailable Kayla Porras PRODUCTION SCHEDULER Primary Care Provider [phone] Misael Maradiaga DO Primary Care Provider + [phone] Joyce Luevano PRODUCTION SCHEDULER Primary Care Provider Unavaila Marielena Adame MD Primary Care Provider [phone] Encounter Details Date Type Department Care Team (Latest Contact Info) Description 02/01/2018 Abstract [facility] , Jerica Cordon [...] filedocumented in this encounter Care Teams Channeler Runner Relationship Specialty Start Date End Date Kayla Porras NP [address] [place] [address] PCP - General 06/25/16 09/27/18 Misael Maradiaga DO [address] [place] [address] PCP - General FAMILY PRACTICE 09/28/18 01/13/20 Joyce Luev[place] [address] PCP - General NURSE PRACTITIONER 01/14/20 10/26/23 Marielena Smallwood MD [address] [place] [address] PCP - General FAMILY PRACTICE 10/27/23 Frank Toure MD [facility] [place][note 2][address] [place] [address] Cihvo Belt Picker CARDIOVASCULAR DISEASE 05/30/16 documented as of this encounter
--- OUTSIDE RECORDS SUMMARY | 2024-12-15 03:09 | XMS_ITS | Data Portability ---
Demographics Address [address] [place] [address] Home Phone Mobile Phone Email Address Preferred Language en Marital Status Never Yazdanism Affiliation Unknown Race Black or Irma rican Ethnic Group Not or Lati no Author Organization [facility] Address [address] [place] [address] Assessment No assessment recorded. Plan of Treatment Reminders Order Date Submit Date Provider Last Modified By Organization Details Last Modified Time Details Appointments None recorded. Lab None recorded. Referral None recorded. Procedures None recorded. Surgeries None recorded. Imaging None recorded. Medication Orders ibuprofen 800 mg tablet 2015 016 [facility] [employer], [address] [place] [address], [id number], 6 18:35:08 Prozac 20 mg capsule 2014 015 [facility] [employer], [address] [place] [address], [id number], 5 16:10:15 tramadol 50 mg tablet 2014 015 [facility] [employer] [facility], [address] [place] [address], [id number], 5 12:13:56 Flomax 0.4 mg capsule 2014 015 [employer], [address] [place] [address], [id number], 5 16:10:16 Ambien 10 mg tablet 2014 015 [place] [facility] [employer], [facility], [address] [place] [address], [id number], 5 10:37:28 Patient TargetsNo targets recorded. Patient Instructions Encounter Date Encounter Id Patient Instructions Last Modified By Organization Details Last Modified Time 06/10/2014 [id number] stroke: care instructions Not available 06/21/2014 17:33:19 insomnia: care instructions Not available 06/21/2014 17:33:19 epilepsy: care instructions Not available 06/21/2014 17:33:19 09/18/2014 [id number] epilepsy: care instructions dsalmond Not available 09/18/2014 17:05:10 back care and preventing injuries: care instructions dsalmond Not available 09/18/2014 17:05:10 04/16/2015 [id number] epilepsy: care instructions campadu Not available 04/16/2015 16:05:30 06/12/2015 [id number] stroke: care instructions dsalmond Not available 06/13/2015 12:21:31 epilepsy: care instructions dsalmond Not available 06/13/2015 12:21:31 learning about high blood pressure dsalmond Not available 06/13/2015 12:21:31 Reason for Referral None Reported. Results Created Date Observation Date Name Description Value Unit Range Abnormal Flag Note LastModifiedBy Organization Detail LastModifiedTime 06/12/19 16 06/12/2015 CBC w/ auto diff WBC 5.9 K/uL 3.4-10 .8 Not Available [facility] (Lab) [address] [place], [address], 06/12/2015 19:52:35 06/12/19 16 06/12/2015 CBC w/ auto diff red blood count 4.6 M/uL 4.5-6. 3 Not Available [facility] (Lab) [address], [place], [address], 06/12/2015 19:52:35 06/12/19 16 06/12/2015 CBC w/ auto diff hemoglobin 14.7 g/dL 13.5-1 7.5 Not Available [facility] (Lab) [address] [place], [address], 06/12/2015 19:52:35 06/12/19 16 06/12/2015 CBC w/ auto diff hematocrit 44.5 % 40.0-5 2.0 Not Available [facility] (Lab) [address] [place], [address], 06/12/2015 19:52:35 06/12/19 16 06/12/2015 CBC w/ auto diff MCV 97 fL 80-95 high Not Available [facility] (Lab) [address] [place], [address], 06/12/2015 19:52:35 06/12/19 16 06/12/2015 CBC w/ auto diff MCH 32 pg 27-32 Not Available [facility] (Lab) [address] [place], [address], 06/12/2015 19:52:35 06/12/19 16 06/12/2015 CBC w/ auto diff MCHC 33 g/dL 32-36 Not Available [facility] (Lab) [address] [place], [address], 06/12/2015 19:52:35 06/12/19 16 06/12/2015 CBC w/ auto diff platelets 219 K/uL 155-37 9 Not Available [facility] (Lab) [address] [place], [address], 06/12/2015 19:52:35 06/12/19 16 06/12/2015 CBC w/ auto diff RDW 11.6 % 11.5-1 4.5 Not Available [facility] (Lab) [address] [place], [address], 06/12/2015 19:52:35 06/12/19 16 06/12/2015 CBC w/ auto diff MPV 11.1 fL 8.9-12 .7 Not Available [facility] (Lab) [address] [place], [address], 06/12/2015 19:52:35 06/12/19 16 06/12/2015 CBC w/ auto diff neutrophils absolute 2.5 K/uL 1.4-7. 0 Not Available [facility] (Lab) [address] [facility], [place], [address], 06/12/2015 19:52:35 06/12/19 16 06/12/2015 CBC w/ auto diff lymphs (absolute) 2.6 K/uL 0.7-3. 1 Not Available [facility] (Lab) [address] [facility], [place], [address], 06/12/2015 19:52:35 06/12/19 16 06/12/2015 CBC w/ auto diff monocytes (absolute) 0.5 K/uL 0.1-0. 9 Not Available [facility] ([facility]) [address] [facility], [place], [address], 06/12/2015 19:52:35 06/12/19 16 06/12/2015 CBC w/ auto diff eos (absolute) 0.2 K/uL 0.0-0. 4 Not Available [facility] (Lab) [address] [place], [address], 06/12/2015 19:52:35 06/12/19 16 06/12/2015 CBC w/ auto diff baso (absolute) 0.0 K/uL 0.1-0. 3 low Not Available [facility] (Lab) [address] [facility], [place], [address], 06/12/2015 19:52:35 06/12/19 16 06/12/2015 CBC w/ auto diff neut % 43.1 % 40.0-7 4.0 Not Available [facility] (Lab) [address] [place], [address], 06/12/2015 19:52:35 06/12/19 16 06/12/2015 CBC w/ auto diff lymphs % 44.6 % 14.0-4 6.0 Not Available [facility] (Lab) [address] [place], [address], 06/12/2015 19:52:35 06/12/19 16 06/12/2015 CBC w/ auto diff mono % 8.7 % 4.0-12 .0 Not Available [facility]) [address], [place], [address], 06/12/2015 19:52:35 06/12/19 16 06/12/2015 CBC w/ auto diff eos % 3 % <=5 Not Available [facility] ([facility]) [address] [facility], [place], [address], 06/12/2015 19:52:35 06/12/19 16 06/12/2015 CBC w/ auto diff baso % 0.2 % 0.1-1. 1 Not Available [facility] ([facility]) [address] [facility], [place], [address], 06/12/2015 19:52:35 06/12/19 16 06/13/2015 HbA1c (hemo globi n A1c), blood hemoglobin A1C 5.4 % 4.8-5. 6 . Pre-d iabet es: 5.7 - 6.4 Diabe ivet: >6.4 Glyce [place] contr ol for adult s with diabe ivet: <7.0 Not Available [facility] (Lab) [address] [facility], [place], [address], 06/13/2015 04:12:44 06/12/19 16 06/13/2015 T4, total , serum thyroxine T4 4.7 ug/dL 4.5-12 .0 Not Available [facility] (Lab) [address] [facility], [place], [address], 06/13/2015 05:19:09 06/12/1906/13/2015 CMP, serum or plasm a glucose, serum 98 mg/dL 65-99 Not Available [facility] (Lab) [address] [facility], [place], [address], 06/13/2015 05:19:11 06/12/19 16 06/13/2015 CMP, serum or plasm a BUN 7 mg/dL 6-24 Not Available [facility] ([facility]) [address] [facility], [place], [address], 06/13/2015 05:19:11 06/12/19 16 06/13/2015 CMP, serum or plasm a creatinine, serum 0.78 mg/dL 0.76-1 .27 Not Available [facility] (Lab) [address], [place], [address], 06/13/2015 05:19:11 06/12/19 16 06/13/2015 CMP, serum or plasm a eGFR if nonafricn AM 102 mL/mi n/1.7 3 >59 Not Available [facility] (Lab) [address], [place], [address], 06/13/2015 05:19:11 06/12/19 16 06/13/2015 CMP, serum or plasm a eGFR if 118 mL/mi n/1.7 3 >59 Not Available [facility] (Lab) [address], [place], [address], 06/13/2015 05:19:11 06/12/19 16 06/13/2015 CMP, serum or plasm a BUN/creatini ne ratio 9 9-20 Not Available [facility] (Lab) [address], [place], [address], 06/13/2015 05:19:11 06/12/19 16 06/13/2015 CMP, serum or plasm a sodium, serum 141 mmol/ L 134-14 4 Not Available [facility] (Lab) [address], [place], [address], 06/13/2015 05:19:11 06/12/1906/13/2015 CMP, serum or plasm a potassium, serum 4.5 mmol/ L 3.5-5. 2 Not Available [facility] (Lab) [address], [place], [address], 06/13/2015 05:19:11 06/12/1906/13/2015 CMP, serum or plasm a chloride, serum 101 mmol/ L 97-108 Not Available [facility] (Lab) [address] [place], [address], 06/13/2015 05:19:11 06/12/19 16 06/13/2015 CMP, serum or plasm a carbon dioxide, total 23 mmol/ L 18-29 Not Available [facility] (Lab) [address], [place], [address], 06/13/2015 05:19:11 06/12/19 16 06/13/2015 CMP, serum or plasm a calcium, serum 9.5 mg/dL 8.7-10 .2 Not Available [facility] (Lab) [address], [place], [address], 06/13/2015 05:19:11 06/12/1906/13/2015 CMP, serum or plasm a protein total serum 7.2 g/dL 6.0-8. 5 Not Available [facility] (Lab) [address], [place], [address], 06/13/2015 05:19:11 06/12/19 16 06/13/2015 CMP, serum or plasm a albumin, serum 4.5 g/dL 3.5-5. 5 Not Available [facility] (Lab) [address], [place], [address], 06/13/2015 05:19:11 06/12/19 16 06/13/2015 CMP, serum or plasm a globulin total 2.7 g/dL 1.5-4. 5 Not Available [facility] (Lab) [address] [place], [address], 06/13/2015 05:19:11 06/12/1906/13/2015 CMP, serum or plasm a A/G ratio 1.7 1.1-2. 5 Not Available [facility] (Lab) [address] [place], [address], 06/13/2015 05:19:11 06/12/19 16 06/13/2015 CMP, serum or plasm a bilirubin total <0.2 mg/dL 0.0-1. 2 Not Available [facility] (Lab) [address] [place], [address], 06/13/2015 05:19:11 06/12/19 16 06/13/2015 CMP, serum or plasm a alkaline phosphatase ser 105 IU/L 39-117 Not Available [facility] ([facility]) [address] [place], [address], 06/13/2015 05:19:11 06/12/19 16 06/13/2015 CMP, serum or plasm a AST (SGOT) 20 IU/L 0-40 Not Available [facility] ([facility]) [address] [place], [address], 06/13/2015 05:19:11 06/12/19 16 06/13/2015 CMP, serum or plasm a ALT (SGPT) 18 IU/L 0-44 Not Available [facility] ([facility]) [address] [place], [address], 06/13/2015 05:19:11 06/12/19 16 06/13/2015 TSH, serum or plasm a TSH 2.010 uIU/m L 0.450- 4.500 Not Available [facility] ([facility]) [address] [place], [address], 06/13/2015 05:19:12 06/12/1906/13/2015 PSA, serum or plasm [...] ce of truong mena se. Not Available [facility] (Lab) [address] [place], [address], 06/13/2015 05:19:13 06/12/19 16 06/13/2015 lipid panel w/ direc t LDL, serum cholesterol, total 215 mg/dL 100-19 9 high Not Available [facility] (Lab) [address] [place], [address], 06/13/2015 05:19:14 06/12/19 16 06/13/2015 lipid panel w/ direc t LDL, serum triglyceride s 73 mg/dL 0-149 Not Available [facility] (Lab) [address] [place], [address], 06/13/2015 05:19:14 06/12/19 16 06/13/2015 lipid panel w/ direc t LDL, serum HDL cholesterol 85 mg/dL >39 Accor ding to ATP-I II Guide lines , HDL-C >59 mg/dL is consi dered a negat phan risk facto r for CHD. Not Available [facility] (Lab) [address] [place], [address], 06/13/2015 05:19:14 06/12/19 16 06/13/2015 lipid panel w/ direc t LDL, serum VLDL cholesterol margarita 15 mg/dL 5-40 Not Available [facility] (Lab) [address] [place], [address], 06/13/2015 05:19:14 06/12/19 16 06/13/2015 lipid panel w/ direc t LDL, serum LDL cholesterol calc 115 mg/dL 0-99 high Not Available [facility] (Lab) [address] [place], [address], 06/13/2015 05:19:14 06/12/19 16 06/13/2015 lipid panel w/ direc t LDL, serum lipid calculation Not Available [facility] [address] [place], [address], 06/13/2015 05:19:14 09/22/19 15 09/21/2014 imagi ng/di agnos tic resul t No observ ation record ed. [address] , [place], [address], 09/30/2014 11:19:53 09/26/19 15 imagi ng/di agnos tic resul t No observ ation record ed. [email or web address] Not Available 2014 11:08:28 10/01/19 15 09/27/2014 imagi ng/di agnos tic resul t No observ ation record ed. [address] [place], [address], 10/03/2014 11:08:29 11/09/19 15 11/08/2014 imagi ng/di agnos tic resul t No observ ation record ed. [email or web address] Not Available 2014 15:10:11 12/02/19 15 12/01/2014 imagi ng/di agnos tic resul t No observ ation record ed. [email or web address] Not Available 2014 10:38:41 01/03/20 15 12/31/2014 imagi ng/di agnos tic resul t No observ ation record ed. [facility] (Rad) [address] [place], [address], 01/02/2015 09:50:17 01/07/20 15 01/05/2015 imagi ng/di agnos tic resul t No observ ation record ed. [email or web address] [facility], [place], [address], 01/06/2015 09:32:38 03/10/20 15 03/10/2015 imagi ng/di agnos tic resul t No observ ation record ed. [email or web address] [facility] (Rad) [address] [place], [address], 03/10/2015 12:50:58 03/11/20 15 03/11/2015 CV EKG 12 lead JORGE ALBERTOMOJGAN MD: KIRILL ANN MD 6905 ACCT: [id number] ADMIT/ SERVIC E DATE: DISCHA RGE DATE: : 1959 PT TYPE: ADM IN SEX: M ORD SITE: [address] TEST DATE: 2014-05 PAT NAME: MOJGAN ADAME MENT: CARD 40 PATIEN T ID: [id number] ROOM: [facility] GENDER : MALE TECHNI MARIA ISABEL: CDN : 01-[address] BY: CADE MOHAMUD S SETH ORDER NUMBER : [id number] 01SEB CJ Lu MD: FELIPE SELF MEASUR EMENTS INTERV ALS AXIS RATE: 145 P: 81 AZ: 118 QRS: 19 QRSD: 82 T: 70 QT: 282 QTC: 438 INTERP RETIVE STATEM ENTS SINUS TACHYC ARDIA WITH SHORT [place] INTERV AL WITH OCCASI ONAL VENTRI CULAR PREMAT URE COMPLE XES WITH OCCASI ONAL SUPRAV ENTRIC ULAR AMBER SEPTAL MYOCAR DIAL INFARC TION, PROBAB LY OLD NONSPE CIFIC ST SEGMEN T ABNORM ALITIE S, CANNOT RULE OUT ISCHEM IA ELECTR ONICAL LY SIGNED BY FELIPE SELF AT 17:03: 07 CDT [facility] [address], [place], [address], 05/07/2015 04:08:47 03/11/20 15 03/11/2015 xr chest 1 view alejandradwight KELLYLINDSEY MOJGAN SELF 6905 ADMIT/ SERVIC E DATE: ACCT: [id number] DISCHA RGE DATE: : 1959 SEX: M [facility] PT TYPE: ADM IN JING MUHAMMAD MD: KIRILL ANN MD STUDY DATE REPORT # ORDER # EXT ORDER ID [id number] 1.002 PROC CODE: [id number] ORT PROCED URE DESCRI PTION: XR CHEST 1 VIEW PORTAB LE I MPRESS ION: NO ACUTE INFILT RATE. EXAMIN ATION: PORTAB LE CHEST X-RAY 1 VIEW ACCESS ION: [id number] EXAM DATE/T TRAVON: 2014 8:36 PM CLINIC [...] SIGNED BY: MARYBEL CROUCH ER10/07/2014 8:54 PM [facility] [address] [facility], [place], [address], 05/07/2015 04:08:47 03/12/20 15 03/12/2015 MRI brain wo MOJGAN TABOR 6905 ADMIT/ SERVIC E DATE: ACCT: [id number] DISCHA RGE DATE: : 1959 SEX: M [facility] PT TYPE: ADM IN ORDERI NG MD: KIRILL ANN MD STUDY DATE REPORT # ORDER # EXT ORDER ID [id number] 1.001 PROC CODE: BRNWOC PROCED URE DESCRI [...] BRAIN WITHOU T CONTRA ST. ACCESS ION: [id number] EXAM DATE/T TRAVON: 2014 11:23 AM CLINIC [...] [facility] [address] [facility], [place], [address], 05/07/2015 04:08:47 06/19/19 16 06/19/2015 imagi ng/di agnos tic resul t No observ ation record ed. [facility] Not Available 2015 09:33:44 06/19/19 16 06/19/2015 imagi ng/di agnos tic resul t No observ ation record ed. [facility] (Lab) [address] [place] [address] [place], [address], 06/19/2015 09:33:44 06/19/19 16 06/19/2015 imagi ng/di agnos tic resul t No observ ation record ed. [facility] (Lab) [address] [place] [address] [place], [address], 06/20/2015 09:57:26 06/20/19 16 06/19/2015 imagi ng/di agnos tic resul t No observ ation record ed. [address] [place], [address], 06/20/2015 10:01:56 05/09/20 19 05/09/2019 US, les aldana id arter y No observ ation record ed. [facility] [address], [place], [address], 05/09/2019 17:59:20 Result Notes None recorded. Problems Name Problem SNOMED Code Status Onset Date Resolution Date Notes Provider Name and Address Organization Details Recorded Time Low back pain 206346233 Active Burke Ann MD Attn: Zulemalivia lu,[address] [facility], [place], [address], [place] [facility] 5 16:09:38 Essential hypertension 92320392 Active Burke Ann MD Attn: Austin tabitha,[address] [facility], [place], [address], [facility] 6 18:34:53 Anxiety 10278224 Active Burke Ann MD Attn: Austin tabitha,[address] [facility], [place], [address], [facility] 5 15:03:30 Laceration - injury 119488539 Active Burke Ann MD Attn: Austin tabitha,[address] [facility], [place], [address], [place] [facility] 5 15:31:20 Seizure disorder 553491516 Active Burke Ann MD Attn: Austin tabitha,[address] [facility], [place], [address], [facility] 6 18:34:53 Cerebrovascula r accident 253329914 Active Burke Ann MD Attn: Austin lu,[address] [facility], [place], [address], [place] [facility] 6 18:34:53 Insomnia 270791690 Active Burke Ann MD Attn: Austin lu,[address] [facility], [place], [address], [facility] 5 15:31:20 Problem Notes Documentation Provider Name and Address Organization Details Recorded Time Consult Note : MOJGAN TABOR MD: ACCT: [id number] ADMIT/SERVICE DATE: 06/25/16 DISCHARGE DATE: 06/25/16 : 1960 PT TYPE: DIS IN SEX: M ORD SITE: [facility] CHART DOCUMENT DATE OF CONSULTATION: 06/25/2016 HISTORY [...] 06/26/2016 12:55 P JOAO CRAWFORD M.D. P #[id number] P/MA CC: DEBRA MUÑOZ M.D. KRISTEN REINEKE-PIPER, MD [facility] 06/29/2016 10:56:44 Medical Equipment None Reported. Allergies [...] cm 20.2 kg/m2 78 /min 18 /min 96385.1 5469 g 142/90 mm[Hg] Darlene Luan [facility] 5 13:46:55 Date Recorded Heart rate Body height Respiratory rate Body mass index (BMI) Body weight Body temperature Systolic And Diastolic Provider Name and Address Organization Details Last Updated DateTime 6 92 /min 170.18 cm 20 /min 21.5 kg/m2 60454.1 5469 g 98 [degF] 102/78 mm[Hg] Leonor Arauz MA [facility] 6 16:31:07 Date Recorded Respiratory rate Body weight Body temperature Body height Body mass index (BMI) Heart rate Systolic And Diastolic Provider Name and Address Organization Details Last Updated DateTime 5 22 /min 94783.9 94932 g 98.7 [degF] 170.18 cm 21.4 kg/m2 80 /min 148/94 mm[Hg] Leonor Arauz MA [facility] 5 15:57:48 Date Recorded Body height Body mass index (BMI) Body weight Heart rate Respiratory rate Body temperature Systolic And Diastolic Provider Name and Address Organization Details Last Updated DateTime 5 170.18 cm 21.5 kg/m2 30341.1 5469 g 88 /min 20 /min 98.2 [degF] 132/80 mm[Hg] Fior Pereyra MA [place] [facility] 5 12:08:47 Social History None [...] Skin Problems N Anemia N Heart Attack ([place]) N Diabetes N Seizures/Epilepsy Y Asthma N Allergies N Hepatitis N Osteoporosis N Heart Failure N Past Encounters Encounter ID Performer Location Encounter Start Date Encounter Closed Date Diagnosis/Indication Diagnosis SNOMED-CT Code Diagnosis ICD10 Code Diagnosis Note [id number] Burke Ann MD [facility] (Adult/Fa m Med) [address] [place] [address] 06/10/2014 13:26:21 06/10/2014 18:13:06 Laceration - injury 952047896 Seizure disorder 031062172 Cerebrovas cular accident 649063285 Insomnia 700408220 [id number] Burke Ann MD [facility] (Adult/Fa m Med) [address] [place] [address] 09/18/2014 14:45:50 09/18/2014 18:01:22 Seizure disorder 287182190 Anxiety 26790226 Low back pain 500642939 [id number] Burke Ann MD [facility] (Adult/Fa m Med) [address] [place] [address] 04/16/2015 11:24:38 04/16/2015 17:33:17 Essential hypertension 51985976 I10 Anxiety 68772352 F41.9 Seizure disorder 5782982 02 G40.909 [id number] Burke Ann MD [facility] (Adult/Fa m Med) [address] [place] [address] 06/12/2015 15:25:04 06/27/2015 12:04:51 Essential hypertension 11634535 I10 Seizure disorder 8393191 02 G40.909 Cerebrovas cular accident 632962897 I63.9 Health Concerns Section Related Observation LastModified by Organization Detai ls LastModified Time None Recorded Concern Status LastModified by Organization Details LastModified Time None Recorded Advance Directives Directive None Recorded Payers Insurance Date Sequence Insurance Name Policy Number Policy Gilbert Covered Member ID Gilbert Member ID Guarantor Name 07/02/2016 1 [facility] PRIOR TO 11/27/2020 (MEDICAID REPLACEMENT - HMO) Mojgan Tabor [id number] Mojgan Tabor Notes Date Note Type Note Provider Name and Address Organization Details Recorded Time 04/16/2015 text/html FOLLOW up care since stroke Burke Ann MD Attn: Accounting,[address] [place], [address], [facility] 04/16/2015 15:03:31
--- OUTSIDE RECORDS SUMMARY | 2024-12-15 03:10 | XMS_ITS | Encounter Summary ---
Author Organization [facility] Address [address] [place] [address] Care Team Providers Care Traffic Control Flagger Name Role Phone Frank Toure MD Unavailable Joyce Luevano NP Primary Care Provider Unavaila Marielena Adame MD Primary Care Provider [phone] Encounter Details Date Type Department Care Team (Late st Contact Info) Description 06/16/2022 MyCCrystalsolt Message Enc [facility] Medical [facility] Family Medicine - [address] [address] Joyce Luevano, PROCESS CONTROL SUPERVISOR Bi Tabor Social History Tobacco Use Types [...] Coronavirus/COVID-19? No / Unsure 06/17/2022 10:38 AM DAMAGE CUTTER documented as of this encounter Functional [...] in writing. She states to fax to [phone]. Will send letter to them. GE CUTTER * Yonatan Rodriguez RN - 06/16/2022 12:50 PM CST Please see note. Thanks GE CUTTER documented in this encounter Plan of Treatment Not on file documented as of this encounter Visit Diagnoses Not on filedocumented in this encounter Care Teams Traffic Control Flagger Relationship Specialty Start Date End Date Joyce Luevano NP [address] [place] [address] PCP - General NURSE PRACTITIONER 01/14/20 10/26/23 Marielena Smallwood MD [address] [place] [address] PCP - General FAMILY PRACTICE 10/27/23 Frank Toure MD [address] [place] [address] [employer] Fire Lieutenant Marine CARDIOVASCULAR DISEASE 05/30/16 documented as of this encounter
--- OUTSIDE RECORDS SUMMARY | 2024-12-15 03:10 | XMS_ITS | Encounter Summary ---
Author Organization [facility] Address [address] [place] [address] Care Team Providers Care Filters Assembler Name Role Phone Frank Toure MD Unavailable Joyce Luevano NP Primary Care Provider Unavaila Marielena Adame MD Primary Care Provider [phone] Encounter Details Date Type Department Care Team (Late st Contact Info) Description 02/23/2022 The Run[employer]rought Message Enc [facility] Family Medicine - [address] [address] Joyce Luevano, KEYING MACHINE OPERATOR Bi Tabor Social History Tobacco [...] 11:25 AM CDT Message sent through other [employer] chart message * Yonatan Rodriguez RN - 02/23/2022 10:24 AM CDT Please see note. Thanks documented in this encounter Plan of Treatment Not on file documented as of this encounter Visit Diagnoses Not on filedocumented in this encounter Care Teams Filters Assembler Relationship Specialty Start Date End Date Joyce Luevano NP [address] [place] [address] PCP - General NURSE PRACTITIONER 01/14/20 10/26/23 Marielena [place] MD [address] [place] [address] PCP - General FAMILY PRACTICE 10/27/23 Frank Toure MD [address] [place] [address] [place] [employer] CARDIOVASCULAR DISEASE 05/30/16 documented as of this encounter
--- OUTSIDE RECORDS SUMMARY | 2024-12-15 03:10 | XMS_ITS | Clinical Summary ---
Author Organization [facility] Address [address] [place] [address] Care Team Providers Care Organic Chemistry Teacher Name Role Phone Elizabeth Sullivan RN Unavailable Jack Arroyo MD Primary Care Provider Rosie marsh Source Comments [facility],non-owned Affiliates and Associated Physician Practices is amultiple site organization consisting of ambulatory clinics and hospital sitesin [place], [place], [place] and [place]. This disclosure is being madepursuant to the Care Everywhere program and may not contain all information available regarding this patient. Last updated 18.[facility] Allergies Active Allergy Reactions Criticality Noted Date [...] GI ppx: [email or web address] Code status: Full code [facility] Transfer Checklist: Reasons for Transfer to [facility]: Delay in Discharge/Difficult Discharge due to [...] Wound care instructions (if applicable) Per wound [facility] Meds Being Held/Why (if any): Depakote held due to complication of pancreatitis. Follow-up Tasks (to be completed prior to/for discharge, e.g. labs, imaging, follow-ups): IR G to GJ tube conversion Your team's Preferred Contact Information for any potential follow up questions: Yue Rojas, resident [address] [facility] Consultants that need to be Informed Prior to Discharge (especially for follow up appointment scheduling, please include any contact info): N/a Checklist Items: [x] Patient and/or family notified of potential transfer to [facility] [x] Patient added to [facility] Transfer List [x] Routine labs updated [...] GI ppx: [email or web address] Code status: Full code [facility] Transfer Checklist: Reasons for Transfer to [facility]: Delay in Discharge/Difficult Discharge due to [...] Wound care instructions (if applicable) Per wound [facility] Meds Being Held/Why (if any): Depakote held [...] and/or family notified of potential transfer to [facility] [x] Patient added to [facility] Transfer List [x] Routine labs updated [...] No evidence of infection Urine cultures from [facility] last month were negative growth as [...] Team Description 12/12/2024 Telephone Transitional Care at [address] [phone] Tiffani Moreno, manager branch 11/26/2024 4:27 PM CDT - 12/11/2024 5:48 PM CDT Hospital Encounter [facility] [address] [place] [phone] Brian Lawrence MD Atilgan, Deniz, MD Hazam, Randa, MD Jain, Aman, DO Arshad, Iqra, MD Neurology Discharge Disposition: Nursing Facility:Medicaid 11/14/2024 10:45 AM CDT Office Visit [facility] - Vascular Surgery [address] [place] [address], [place] [address] Anna Membreno MD Pain in extremity, unspecified extremity (Primary Dx) 11/14/2024 Travel 11/05/2024 Telephone [facility] - Centralized Scheduling [address] [place] [address] Alden Hurtado MD Appointment 10/30/2024 Telephone [facility] - Centralized Scheduling [facility] [place] [phone] Sean Raymundo DO Appointment 10/22/2024 Telephone [facility] INTERNAL MED [address] [place] [phone] Cade Guthrie MD General (OSH Transfer) 10/17/2024 2:47 PM CDT - 10/18/2024 10:58 AM CDT Emergency [facility] EMERGENCY DEPARTMENT [address] [place] [phone] Caio Elder MD Lorber, Steven A, MD Abdominal pain, unspecified abdominal location (Primary Dx); Lung nodule Discharge Disposition: Home or Self Care 10/17/2024 Travel from Last 3 Months Immunizations Immunization Administration Dates Next Due MD Revolution primary monoval ent 12+ yr 0.3mL Purple [...] and heating? Not hard at all 08/06/2024 [facility] [place] [facility] - Occupational Stress [...] any time in the past 12 m [facility], were you homeless or living in a chcf (including now)? 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 [facility] Glucose WB/POC 95 70 - 99 mg/dL 12/11/2024 5:01 PM CDT [facility] Specimen Type Arterial/C apillary 12/11/2024 5:01 PM CDT [facility] Blood BLOOD SPECIMEN / Unknown 12/11/2024 4:58 PM CDT 12/11/2024 5:01 PM CDT Marianne Daniels MD LAB - POINT OF CARE ORDERABLES F inal Result [facility] [address] [place] [address], [facility] [phone] * (ABNORMAL) RENAL FUNCTION PANEL (12/11/2024 12:28 AM CDT) Only the most recent of4 resultswithin the time period is included. [facility] BUN 10 7 - 26 mg/dL 12/11/2024 1:14 AM CDT [facility] Creatinine 0.49(L) 0.71 - 1.16 mg/dL 12/11/2024 1:14 AM CDT [facility] Sodium 140 136 - 145 mmol/L 12/11/2024 1:14 AM [facility] Potassium 4.1 3.5 - 4.5 mmol/L 12/11/2024 1:14 AM [facility] Chloride 110(H) 98 - 107 mmol/L 12/11/2024 1:14 AM [facility] CO2 29 22 - 29 mmol/L 12/11/2024 1:14 AM [facility] Glucose 121(H) 70 - 99 mg/dL 12/11/2024 1:14 AM [facility] Albumin 3.0(L) 3.4 - 5.0 g/dL 12/11/2024 1:14 AM [facility] Calcium 8.6 8.4 - 10.2 mg/dL 12/11/2024 1:14 AM [facility] Phosphorus 3.0 2.8 - 5.1 mg/dL 12/11/2024 1:14 AM [facility] Anion Gap 1(L) 6 - 16 12/11/2024 1:14 AM [facility] BUN/Creatinine Ratio 20 7 - 23 12/11/2024 1:14 AM [facility] Osmolality Calculated 290 275 - 295 mOsm/kg 12/11/2024 1:14 AM [facility] eGFR by CKD-EPI >90 >=90 mL/min/1.7 3 m2 12/11/2024 1:14 AM [facility] Comment:Estimated Glomerular Filtration Rate (eGFR) calculated using the CKD-EPI Creatinine Equation (2020), per the National Kidney Foundation and [place] Society of Nephrology recommendations. Blood BLOOD SPECIMEN / Unknown Venipuncture / Unknown 12/11/2024 12:28 AM CDT 12/11/2024 12:48 AM CDT us Herminio Morrison DO LAB - CHEMISTRY ORDERABLES Final Result [facility] [address] [place] [address], [facility] [phone] * MAGNESIUM BLOOD (12/11/2024 12:28 AM CDT) Only the most recent of6 resultswithin the time period is included. [facility] Magnesium 1.8 1.6 - 2.6 mg/dL 12/11/2024 1:14 AM CDT [facility] Blood BLOOD SPECIMEN / Unknown Venipuncture / Unknown 12/11/2024 12:28 AM CDT 12/11/2024 12:48 AM CDT Herminio Morrison DO LAB - CHEMISTRY ORDERABLES Final Result [facility] [address] [place] [address], [facility] [phone] * EKG 12-Lead (12/07/2024 8:47 AM CDT) Only the most recent of2 resultswithin the time period is included. [facility] Ventricular Rate 106 BPM [facility] MUSE Atrial Rate 106 BPM [facility] MUSE P-R Interval 156 ms [facility] M[facility] QRS Duration ms 82 ms [facility] MUSE Q-T Interval ms 362 ms [facility] MUSE QTC Calculation (Bezet) 480 ms [facility] MUSE Calculated P [place] 56 degrees [facility] MUSE Calculated R [place] -22 degrees [facility] MUSE Calculated T [place] 86 degrees [facility] MUSE Interpretation EKG SINUS TACHYCARDIA SEPTAL INFARCT (CITED ON OR BEFORE 09-OCT-2022) INFERIOR INFARCT (CITED ON OR BEFORE 27-JUL-2024) ABNORMAL ECG WHEN COMPARED WITH ECG OF 01-DEC-2024 22:00, PREMATURE VENTRICULAR COMPLEXES ARE NO LONGER PRESENT QUESTIONABLE CHANGE IN INITIAL FORCES OF ANTEROSEPTAL LEADS ST NO LONGER ELEVATED IN ANTERIOR LEADS Confirmed by ALISON OLSEN, ASHLYN GONZALES ([id number]) on 12/08/2024 3:56:27 PM [facility] MUSE 12/07/2024 8:47 AM CDT 12/08/2024 3:56 PM CDT Herminio Morrison DO ECG ORDERABLES Edited Result - Final Performing Organization Address City/[facility]/ZIP Co de Phone Number [facility] MUSE * PT-INR [facility] (12/07/2024 12:29 AM CDT) [facility] PT 14.1 12.1 - 14.8 Seconds 12/07/2024 1:13 AM [facility] INR 1.1 See Comment 12/07/2024 1:13 AM [facility] Comment:The suggested therap eutic range for standard coumadin (warfarin) therapy is an INR of 2.0-3.0. For high-risk patients (Mechanical Mitral Valve Prosthesis, etc.), the suggested prophylactic therapeutic range is an INR of 2.5-3.5. Blood BLOOD SPECIMEN / Unknown Venipuncture / Unknown 12/07/2024 12:29 AM CDT 12/07/2024 12:52 AM CDT Gaurav Leroy PA-C LAB - COAGULATION ORDERA BLES Final Result [facility] [address] [place] [address], [facility] [phone] * (ABNORMAL) BASIC METABOLIC PANEL (CALCIUM TOTAL) (12/07/2024 12:29 AM CDT) Only the most recent of2 resultswithin the time period is included. [facility] BUN <5(L) 7 - 26 mg/dL 12/07/2024 1:17 AM [facility] Creatinine 0.51(L) 0.71 - 1.16 mg/dL 12/07/2024 1:17 AM [facility] Sodium 141 136 - 145 mmol/L 12/07/2024 1:17 AM [facility] Potassium 2.7(L) 3.5 - 4.5 mmol/L 12/07/2024 1:17 AM [facility] Chloride 111(H) 98 - 107 mmol/L 12/07/2024 1:17 AM [facility] CO2 25 22 - 29 mmol/L 12/07/2024 1:17 AM [facility] Glucose 83 70 - 99 mg/dL 12/07/2024 1:17 AM [facility] Calcium 8.7 8.4 - 10.2 mg/dL 12/07/2024 1:17 AM [facility] Anion Gap 5(L) 6 - 16 12/07/2024 1:17 AM [facility] BUN/Creatinine Ratio <10 7 - 23 12/07/2024 1:17 AM T [facility] Osmolality Calculated <288 275 - 295 mOsm/kg 12/07/2024 1:17 AM [facility] eGFR by CKD-EPI >90 >=90 mL/min/1.7 3 m2 12/07/2024 1:17 AM [facility] Comment:Estimated Glomerular Filtration Rate (eGFR) calculated using the CKD-EPI Creatinine Equation (2020), per the National Kidney Foundation and [place] Society of Nephrology recommendations. Blood BLOOD SPECIMEN / Unknown Venipuncture / Unknown 12/07/2024 12:29 AM CDT 12/07/2024 12:51 AM CDT Herminiochrystal Morrison DO LAB - CHEMISTRY ORDERABLES Final Result Performing Organization Address City/[facility]/ZIP Co de Phone Number [address] [address], [place] [phone] * (ABNORMAL) PHOSPHORUS BLOOD (12/07/2024 12:29 AM CDT) Only the most recent of2 resultswithin the time period is included. Phosphorus 2.7(L) 2.8 - 5.1 mg/dL 12/07/2024 1:17 AM CDT [facility] Blood BLOOD SPECIMEN / Unknown Venipuncture / Unknown 12/07/2024 12:29 AM CDT 12/07/2024 12:51 AM CDT us Herminio Morrison DO LAB - CHEMISTRY ORDERABLES Final Result [address] [address], [place] [phone] * IR Perc G To GJ Tube Exchange (12/06/2024 11:22 AM CDT) Anatomical Region Laterality Modality Abdomen X-Ray Angiograph y 12/06/2024 4:35 PM CDT Impressions 12/09/2024 9:09 PM CDT Impression: Successful conversion of the existing gastrostomy catheter for a new 18-Japanese balloon-retention gastrojejunostomy catheter under fluoroscopic guidance, as [...] Procedure: Existing gastrostomy tube exchange for 18 Japanese gastrojejunostomy tube Start time: 1107 End time: 1120 Sedation initiated time: N/A Fluoroscopic time: 0.8 minutes Contrast: 30 mL of Isovue-300 Procedure in detail: The procedure, risks, and possible complications were explained to the patient in detail, and informed consent was obtained. The patient was placed supine on the procedure table. A hot metal mixer operator film of abdomen was obtained, which showed an existing properly placed gastrostomy tube. Contrast was hand injected through the existing gastrostomy catheter and showed opacification of the gastric lumen. A 0.035 inch Glidewire was advanced into the stomach through the existing catheter which was subsequently removed over the wire. Glidewire was advanced into the jejunum under fluoroscopic guidance. A new 18-Japanese gastrojejunostomy catheter was then advanced over the [...] Procedure: Existing gastrostomy tube exchange for 18 Japanese gastrojejunostomy tube Start time: 1107 End time: 1120 Sedation initiated time: N/A Fluoroscopic time: 0.8 minutes Contrast: 30 mL of Isovue-300 Procedure in detail: The procedure, risks, and possible complications were explained to the patient in detail, and informed consent was obtained. The patient was placed supine on the procedure table. A hot metal mixer operator film of abdomen wasobtained, which showed an existing properly placed gastrostomy tube. Contrast was hand injected through the existing gastrostomy catheter and showed opacification of the gastric lumen. A 0.035 inch Glidewire was advanced into the stomach through the existing catheter which was subsequently removed over the wire. Glidewire was advanced into thejejunum under fluoroscopic guidance. A new 18-Japanese gastrojejunostomy catheterwas then advanced over the wire [...] of the existing gastrostomy catheterfor a new 18-Japanese balloon-retention gastrojejunostomy catheter under fluoroscopic guidance, as [...] andinterpreted this examination/study. > Interpreting Provider: David Arviuz MD on 12/09/2024 9:09PM us Lula FERNANDEZ IR ORDERABLES Final Result * HEMOGLOBIN A1C (12/03/2024 11:31 AM CDT) Hemoglobin A1c 4.9 <=5.6 % 12/03/2024 3:17 PM CDT [facility] Estimated Average Glucose 94 mg/dL 12/03/2024 3:17 PM CDT [facility] Comment: HbA1c Interpretation: Normal : < 5.7% Pre-diabetes: 5.7-6.4% Diabetes: Equal to or greater than 6.5% Test results diagnostic of diabetes should be repeated for confirmation. Treatment target values recommended by ADA and other clinical organizations should be used to evaluate metabolic control in patients. Reference: [place] Diabetes Association, Standards of Care in Diabetes [...] LAB - CHEMISTRY ORDERABLES Lulu l Result [facility] [address] [place] [address], [facility] [phone] * TROPONIN-I HIGH SENSITIVE (12/03/2024 8:37 AM CDT) Only the most recent of4 resultswithin the time period is included. Troponin I High Sensitive 7 <=35 ng/L 12/03/2024 9:41 AM CDT [facility] Blood BLOOD SPECIMEN / Unknown Lab Venipuncture / Unknown 12/03/2024 8:37 AM CDT 12/03/2024 9:07 AM CDT us Neha Palomino MD LAB - CHEMISTRY ORDERABLES F inal Result Performing Organization Address [facility] Co de Phone Number [address] [address], [place] [phone] * POTASSIUM BLOOD (12/03/2024 8:37 AM CDT) [facility] Potassium 3.8 3.5 - 4.5 mmol/L 12/03/2024 9:31 AM CDT [facility] Blood BLOOD SPECIMEN / Unknown Lab Venipuncture / Unknown 12/03/2024 8:37 AM CDT 12/03/2024 9:07 AM CDT us Paige Brewster MD LAB - CHEMISTRY ORDERABLES Final Result Performing Organization Address [facility] de Phone Number [address] [address], [place] [phone] * (ABNORMAL) PTT [facility] (12/03/2024 5:20 AM CDT) [facility] APTT 42.5(H) 23.0 - 38.4 Seconds 12/03/2024 11:06 AM CDT [facility] Comment:Suggested therapeuti c range for full dose I.V. unfractionated heparin therapy for venous thromboembolism is 71 to 109 seconds. Blood BLOOD SPECIMEN / Unknown Venipuncture / Unknown 12/03/2024 5:20 AM CDT 12/03/2024 10:22 AM CDT us Ulises Galindo MD LAB - COAGULATION ORDERABLES Fi nal Result Performing Organization Address [facility] Co de Phone Number [address] [address], [place] [phone] * TYPE + SCREEN PANEL (12/03/2024 5:20 AM CDT) [facility] Antibody Screen NEG 11:26 AM CDT [facility] BLOOD BANK LAB ABO Rh O POS 12/03/2024 11:26 AM T [facility] BLOOD BANK LAB Blood Bank BLOOD SPECIMEN / Unknown Venipuncture / Unknown 12/03/2024 5:20 AM CDT 12/03/2024 10:22 AM CDT us Ulises Galindo MD LAB - BLOOD BANK ORDERABLES Fin al Result [facility] B[facility]OD [facility]ANK LAB [address] [place] [address], [facility] [phone] * (ABNORMAL) CBC W AUTO DIFFERENTIAL (12/03/2024 5:20 AM CDT) Only the most recent of4 resultswithin the time period is included. WBC 5.7 4.0 - 10.7 x10E9/L 12/03/2024 10:47 AM [facility] RBC Count 4.17(L) 4.30 - 5.80 x10E12/L 12/03/2024 10:47 AM [facility] Hemoglobin 13.4 13.3 - 17.5 g/dL 12/03/2024 10:47 AM [facility] Hematocrit 39.4 38.7 - 51.1 % 12/03/2024 10:47 AM [facility] MCV 94.5 80.0 - 98.0 fL 12/03/2024 10:47 AM [facility] MCH 32.1 26.7 - 33.6 pg 12/03/2024 10:47 AM [facility] MCHC 34.0 31.7 - 36.3 g/dL 12/03/2024 10:47 AM [facility] RDW-CV 13.2 11.3 - 14.8 % 12/03/2024 10:47 AM [facility] Platelet Count 303 150 - 420 x10E9/L 12/03/2024 10:47 AM [facility] MPV 12.2(H) 7.8 - 11.4 fL 12/03/2024 10:47 AM [facility] Neutrophil % 45.9 41.0 - 74.0 % 12/03/2024 10:47 AM [facility] Lymphocyte % 40.4 17.0 - 47.0 % 12/03/2024 10:47 AM [facility] Monocyte % 8.2 3.0 - 11.0 % 12/03/2024 10:47 AM [facility] Eosinophil % 4.7 0.0 - 7.0 % 12/03/2024 10:47 AM [facility] Basophil % 0.4 0.0 - 1.6 % 12/03/2024 10:47 AM [facility] Immature Granulocytes % 0.4 0.0 - 1.0 % 12/03/2024 10:47 AM [facility] Neutrophil Absolute 2.62 1.60 - 7.50 x10E9/L 12/03/2024 10:47 AM [facility] Lymphocyte Absolute 2.30 1.00 - 4.40 x10E9/L 12/03/2024 10:47 AM [facility] Monocyte Absolute 0.47 0.15 - 1.00 x10E9/L 12/03/2024 10:47 AM [facility] Eosinophil Absolute 0.27 0.00 - 0.60 x10E9/L 12/03/2024 10:47 AM [facility] Basophil Absolute 0.02 0.00 - 0.13 x10E9/L 12/03/2024 10:47 AM [facility] Blood BLOOD SPECIMEN / Unknown Venipuncture / Unknown 12/03/2024 5:20 AM CDT 12/03/2024 10:22 AM CDT us Ulises Galindo MD LAB - HEMATOLOGY ORDERABLES Fin al Result [facility] [address] [place] [address], [facility] [phone] * (ABNORMAL) COMPREHENSIVE METABOLIC PANEL (12/03/2024 5:20 AM CDT) Only the most recent of3 resultswithin the time period is included. BUN <5(L) 7 - 26 mg/dL 12/03/2024 11:07 AM [facility] Creatinine 0.48(L) 0.71 - 1.16 mg/dL 12/03/2024 11:07 AM [facility] Sodium 141 136 - 145 mmol/L 12/03/2024 11:07 AM [facility] Potassium 3.2(L) 3.5 - 4.5 mmol/L 12/03/2024 11:07 AM [facility] Chloride 110(H) 98 - 107 mmol/L 12/03/2024 11:07 AM [facility] CO2 26 22 - 29 mmol/L 12/03/2024 11:07 AM [facility] Glucose 83 70 - 99 mg/dL 12/03/2024 11:07 AM [facility] Calcium 9.2 8.4 - 10.2 mg/dL 12/03/2024 11:07 AM [facility] Protein Total 7.1 6.0 - 8.3 g/dL 12/03/2024 11:07 AM [facility] Albumin 3.4 3.4 - 5.0 g/dL 12/03/2024 11:07 AM [facility] Bilirubin Total 0.4 0.2 - 1.2 mg/dL 12/03/2024 11:07 AM [facility] Alkaline Phosphatase 116 40 - 150 U/L 12/03/2024 11:07 AM [facility] ALT 23 5 - 55 U/L 12/03/2024 11:07 AM [facility] AST 21 5 - 34 U/L 12/03/2024 11:07 AM [facility] Anion Gap 5(L) 6 - 16 12/03/2024 11:07 AM [facility] BUN/Creatinine Ratio <10 7 - 23 12/03/2024 11:07 AM [facility] Osmolality Calculated <288 275 - 295 mOsm/kg 12/03/2024 11:07 AM [facility] Albumin/Globulin Ratio 0.9(L) 1.1 - 2.3 12/03/2024 11:07 AM [facility] eGFR by CKD-EPI >90 >=90 mL/min/1.7 3 m2 12/03/2024 11:07 AM CDT [facility] Comment:Estimated Glomerular Filtration Rate (eGFR) calculated using the CKD-EPI Creatinine Equation (2020), per the National Kidney Foundation and [place] Society of Nephrology recommendations. Blood BLOOD SPECIMEN / Unknown Venipuncture / Unknown 12/03/2024 5:20 AM CDT 12/03/2024 10:22 AM CDT us Ulises Galindo MD LAB - CHEMISTRY ORDERABLES Lulu l Result [address] [address], [facility] [phone] * TSH (12/03/2024 5:20 AM CDT) TSH 1.497 0.350 - 4.940 uIU/mL 12/03/2024 11:22 AM CDT [facility] Blood BLOOD SPECIMEN / Unknown Venipuncture / Unknown 12/03/2024 5:20 AM CDT 12/03/2024 10:22 AM CDT us Ulises Galindo MD LAB - CHEMISTRY ORDERABLES Lulu l Result Performing Organization Address City/[facility]/ZIP Co de Phone Number [address] [address], [place] [phone] * ECHO COMPLETE W CONTRAST (12/02/2024 1:09 [...] LVOT pk grad 2.528 [facility] pk iggy 79.495 cm/s [facility] CV F U PACS LVOT VTI 13.89 cm [facility] CV [facility] I PACS RV-rodriguez basal diam 2.681 cm [facility] CV [facility] PACS RVIDd 2.653 cm [facility] CV [facility] I PACS RVOT diam Doppler 2.3 cm SS M CV [facility] PACS RVOT pk iggy 64.734 cm/s [facility] CV F U PACS RVOT VTI 11.567 cm [facility] CV [facility] I PACS LA size 3.834 cm [facility] CV [facility] I PACS LA vol BP 34.054 ml [facility] CV [facility] I PACS RA area 12.635 cm [facility] CV [facility] PACS AV area pk iggy 2.087 cm [facility] PACS AV area cont VTI 2.007 cm [facility] CV [facility] PACS AV pk grad 5.661 mmHg SSM CV FU PACS AV mn grad 2.828 mmHg [facility] CV FU JI PACS AV pk iggy 118.965 cm/s [facility] CV [facility] I PACS AV VTI 21.609 cm [facility] CV [facility] I PACS MV A pk iggy 74.128 cm/s [facility] CV F U PACS MV E pk iggy 47.388 cm/s S[facility] CV F U PACS MV E' lateral iggy 6.233 cm/s SS M CV [facility] PACS MV mn grad 1.201 mmHg SSM CV FU PACS MV VTI 20.977 cm [facility] CV [facility] I PACS PV pk iggy 99.619 cm/s [facility] CV [facility] I PACS PV VTI 16.226 cm [facility] CV [facility] I PACS TAPSE 1.903 cm [facility] CV [facility] I PACS TR pk iggy 259.7 cm/s [facility] CV [facility] I PACS Ascending aorta 3.088 cm [facility] AV area index 1.065 cm /m [...] 12:35 PM Patient Status: I/P Study Site: [facility] Primary Location: [facility] Info Technical Quality: Adequate Exam Type: ECHO COMPLETE W CONTRAST Indications R07.9 - Chest pain, unspecified type Procedure(s) * A complete 2D, color Doppler, spectral Doppler, and M-Mode transthoracic echocardiogram was performed. Contrast/Agitated Saline Contrast / Saline: Definity Amount: 1.00 ml Administered By: Saeed Nesbitt Reaction to Contrast: no Staff Referring Physician: Ulises Galindo Ordering Provider: Ulises Galindo Attending Physician: Ulises Galindo Tie Loader: Saeed Nesbitt Left Ventricle The left ventricular [...] MD on 12/02/2024 03:18 PM Procedure Note [place], Abimbola J, MD - 12/02/2024 Summary * [...] 12:35 PM Patient Status: I/P Study Site: [facility] Primary Location: [facility] EStud Info Technical Quality: Adequate Exam Type: ECHO COMPLETE W CONTRAST Indications R07.9 - Chest pain, unspecified type Procedure(s) * A complete 2D, color Doppler, spectral Doppler, and M-Modetransthoracic echocardiogram was performed. Contrast/Agitated Saline Contrast / Saline: Definity Amount: 1.00 ml Administered By: Saeed Nesbitt Reaction to Contrast: no Staff Referring Physician: Ulises Galindo Ordering Provider: Ulises Galindo Attending Physician: Ulises Galindo Tie Loader: Saeed Nesbitt Left Ventricle The left ventricular [...] Ulises Galindo MD LAB - CHEMISTRY ORDERABLES [facility] Result Performing Organization Address City/State/[facility] Co de Phone Number [facility] [address] [place] [phone], [facility] [phone] * XR Chest 1Vw Portable (12/01/2024 10:35 [...] - 10.0 ug/mL 11/29/2024 1:20 AM CDT [facility] ([facility]) Comment: INTERPRETIVE INFORMATION: Lacosamide, Serum Therapeutic Range: 1.0 - 10.0 ug/mL Toxic: >=20.0 ug/mL Lacosamide is an anticonvulsant drug indicated for adjunctive therapy for partial-onset seizures. The therapeutic range is based on serum, predose (trough) draw collection at steady-state concentration. Adverse effects may include dizziness, fatigue, nausea, vomiting, blurred vision, and tremor. Performed By: [facility] [address] [place] [address] Plant Breeder Scientist: Power Mliian MD, PhD CLIA Number: [id number] Blood BLOOD SPECIMEN / Unknown Lab Venipuncture / Unknown 11/27/2024 2:46 AM CDT 11/27/2024 2:56 AM CDT us Ulises Galindo MD LAB - CHEMISTRY ORDERABLES Lulu l Result [facility]) [address] [place] [address] * (ABNORMAL) LEVETIRACETAM LEVEL (11/27/2024 2:46 AM CDT) Levetiracetam 72(H) 10 - 40 ug/mL 11/28/2024 7:28 PM CDT [facility] ([facility]) Comment: INTERPRETIVE INFORMATION: Keppra (Levetiracetam) Therapeutic Range: 10-40 ug/mL Toxic: Not well Established Pharmacokinetics of levetiracetam are affected by renal function. Adverse effects may include somnolence, weakness, headache and vomiting. This levetiracetam (Keppra) immunoassay uses the [employer] reagents, which has known cross-reactivity with the drug brivaracetam (Briviact) and may report inaccurate results. Patients transitioning from levetiracetam to brivaracetam or those who are using both medications should not monitor drug concentrations with the [employer] assay. These patients should be monitored using a validated chromatographic methodology that distinguishes between drugs to determine drug concentrations. Performed By: [facility] [address] [place] [address] Plant Breeder Scientist: Power Milian MD, PhD CLIA Number: [id number] Blood BLOOD SPECIMEN / Unknown Lab Venipuncture / Unknown 11/27/2024 2:46 AM CDT 11/27/2024 2:56 AM CDT Ulises Galindo MD LAB - THERAPEUTIC DRUG MONITORI NG ORDERABLES Final Result Performing Organization Address [facility]/ZIP Co de Phone Number [facility] ([facility]) [address] [place] [address] * (ABNORMAL) VALPROIC ACID LEVEL (11/27/2024 2:46 AM CDT) [facility] Valproic Acid Total <13(L) 50 - 100 ug/mL 11/27/2024 3:22 AM CDT [facility] Blood BLOOD SPECIMEN / Unknown Lab Venipuncture / Unknown 11/27/2024 2:46 AM CDT 11/27/2024 2:56 AM CDT Ulises Galindo MD LAB - CHEMISTRY ORDERABLES Lulu l Result [address] [address], [place] [phone] * (ABNORMAL) CBC W/O DIFFERENTIAL (11/26/2024 10:59 PM CDT) [facility] WBC 6.9 4.0 - 10.7 x10E9/L 11/26/2024 11:01 PM [facility] RBC Count 3.56(L) 4.30 - 5.80 x10E12/L 11/26/2024 11:01 PM [facility] Hemoglobin 11.5(L) 13.3 - 17.5 g/dL 11/26/2024 11:01 PM [facility] Hematocrit 33.1(L) 38.7 - 51.1 % 11/26/2024 11:01 PM [facility] MCV 93.0 80.0 - 98.0 fL 11/26/2024 11:01 PM [facility] MCH 32.3 26.7 - 33.6 pg 11/26/2024 11:01 PM [facility] MCHC 34.7 31.7 - 36.3 g/dL 11/26/2024 11:01 PM [facility] RDW-CV 13.1 11.3 - 14.8 % 11/26/2024 11:01 PM [facility] Platelet Count 251 150 - 420 x10E9/L 11/26/2024 11:01 PM [facility] MPV 11.8(H) 7.8 - 11.4 fL 11/26/2024 11:01 PM [facility] Blood BLOOD SPECIMEN / Unknown Venipuncture / Unknown 11/26/2024 10:59 PM CDT 11/26/2024 10:59 PM CDT us Ulises Galindo MD LAB - HEMATOLOGY ORDERABLES Fin al Result Performing Organization Address City/State/[facility] Co de Phone Number [facility] [address] [place] [address], [facility] [phone] * CARDIAC EKG ORDER (10/18/2024 11:02 AM CDT) Narrative 10/18/2024 11:02 AM CDT Ordered by an unspecified provider. us Scanned Document CARDIAC SERVICES ORDERABLES Fin al Result * URINALYSIS REFLEX MICROSCOPIC REFLEX CULTURE (10/18/2024 6:28 AM CDT) Color UA Yellow Yellow, Straw 10/18/2024 6:49 AM CDT [facility] Clarity UA Clear Clear 10/18/2024 6:49 AM CDT [facility] Glucose UA Normal Normal 10/18/2024 6:49 AM CDT [facility] Bilirubin UA Negative Negative 10/18/2024 6:49 AM CDT [facility] Ketone UA Negative Negative 10/18/2024 6:49 AM CDT [facility] Specific [place] UA 1.022 1.005 - 1.030 10/18/2024 6:49 AM CDT [facility] Blood UA Negative Negative 10/18/2024 6:49 AM CDT [facility] pH UA 8.0 5.0 - 8.0 pH 10/18/2024 6:49 AM T [facility] Protein UA Negative Negative 10/18/2024 6:49 AM CDT [facility] Urobilinogen UA Normal Normal mg/dL 10/18/2024 6:49 AM CDT [facility] Nitrite UA Negative Negative 10/18/2024 6:49 AM T [facility] Leukocyte Esterase UA Negative Negative 10/18/2024 6:49 AM T [facility] Reflex Status Culture not indicated 10/18/2024 6:49 AM [facility] Urine URINE SPECIMEN OBTAINED BY CLEAN CATCH PROCEDURE / Unknown Collection / Unknown 10/18/2024 6:28 AM CDT 10/18/2024 6:32 AM CDT us Caio Elder MD LAB - URINALYSIS ORDERABLES nal Result Performing Organization Address [facility] Co de Phone Number [facility] [address] [place] [phone], [facility] [phone] * CT Abdomen Pelvis W Contrast (10/17/2024 [...] dictated by Meeta Leblanc MD (vice president marketing & development). Nj Thomason MD have personally reviewed and [...] dictated by Meeta Leblanc MD (vice president marketing & development). Nj Thomason MD have personally reviewed and interpreted this examination/study. > Interpreting Provider: Nj Escobar MD on 10/18/2024 11:44 AM Caio Elder MD DIAGNOSTIC IMAGING ORDERABLES Final Result * TROPONIN-I HIGH SENSITIVE BASELINE + 1HR (10/17/2024 4:08 PM CDT) Troponin I High Sensitive 4 <=35 ng/L 10/17/2024 5:01 PM CDT [facility] Blood BLOOD SPECIMEN / Unknown Venipuncture / Unknown 10/17/2024 4:08 PM CDT 10/17/2024 4:17 PM CDT Caio Elder MD LAB - CHEMISTRY ORDERABLES Fin al Result [address] [address], [facility] [phone] * LIPASE BLOOD (10/17/2024 4:08 PM CDT) Pathologist [facility] Lipase 23 8 - 78 U/L 10/17/2024 5:14 PM CDT [facility] Blood BLOOD SPECIMEN / Unknown Venipuncture / Unknown 10/17/2024 4:08 PM CDT 10/17/2024 4:17 PM CDT Narrative [facility] - 10/17/2024 5:14 PM CDT Lipase results from the [employer] Alinity analyzer may not be comparable with other methodologies. us Caio Elder MD LAB - CHEMISTRY ORDERABLES Fin al Result [address] [address], [place] [phone] * LACTIC ACID BLOOD (10/17/2024 4:08 PM CDT) [facility] Lactic Acid-Stat 1.8 <=2.0 mmol/L 10/17/2024 4:47 PM CDT [facility] Blood BLOOD SPECIMEN / Unknown Venipuncture / Unknown 10/17/2024 4:08 PM CDT 10/17/2024 4:17 PM CDT us Caio Elder MD LAB - CHEMISTRY ORDERABLES Fin al Result Performing Organization Address City/[facility]/ZIP Co de Phone Number [address] [address], [place] [phone] * HEPATITIS C AB SCREEN RFLX NAAT QUANT (09/01/2022 2:05 AM CDT) [facility] Hepatitis C Antibody Non-react phan [...] ORDERABLES Fin al Result Performing Organization Address [facility]/ZIP Co de Phone Number [facility] [address] [place] [address], [place] [phone] * HIV-1 HIV-2 ANTIBODY + HIV P24 AG PANEL (09/01/2022 2:05 AM CDT) HIV Antigen/Antibod y 1 & 2 Non-reacti ve Non-react phan 09/01/2022 3:09 AM CDT [facility] Comment:No Laboratory eviden ce of HIV infection. 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 Source: [facility]. 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 John Seipel Infection Prevention 09/18/2022 MDRO Hx 09/18/2022 11/27/2024 MRSA Hx 06/11/2023 11/27/2024 Insurance [facility] [place] [address] Advance Directives Documents on File Type Date Recorded Patient Reinsurance Clerk Expl anation Adv Directive/Living Will/POA 07/19/2019 4:10 [...] 12:11 AM 06/10/2024 2:02 AM Care Teams Organic Chemistry Teacher Relationship Specialty Start Date End Date Jack Arroyo MD [address] [place] [address] PCP - General 10/17/24 Elizabeth Sullivan, RN Church Musician 10/14/17
--- OUTSIDE RECORDS SUMMARY | 2024-12-15 03:10 | XMS_ITS | Encounter Summary ---
Author Organization [facility] - [facility] Address [address] [place] [address] Care Team Providers Care Seat Pack Inspector Name Role Phone Frank Toure MD Unavailable Joyce Luevano NP Primary Care Provider Unavaila Marielena Adame MD Primary Care Provider [phone] Encounter Details Date Type Department Care Team (Late st Contact Info) Description 03/08/2022 Baobab Planett Message Enc [facility] Medical Group Family Medicine - [address] [address] Joyce Luevano, BOUCHRA Vascular doctor [...] on filedocumented in this encounter Care Teams Seat Pack Inspector Relationship Specialty Start Date End Date Joyce Luevano NP [address] [place] [address] PCP - General NURSE PRACTITIONER 01/14/20 10/26/23 Marielena Smallwood MD [address] [place] [address] PCP - General FAMILY PRACTICE 10/27/23 Frank Toure MD [address] [place] [address] [employer] Remote Sensing Specialist CARDIOVASCULAR DISEASE 05/30/16 documented as of this encounter
--- OUTSIDE RECORDS SUMMARY | 2024-12-15 03:10 | XMS_ITS | Encounter Summary ---
Author Organization [facility] - [facility] Address [address] [place] [address] Care Team Providers Care Filter Operator Name Role Phone Frank Toure MD Unavailable Joyce Luevano NP Primary Care Provider Unavaila Marielena Adame MD Primary Care Provider [phone] Encounter Details Date Type Department Care Team (Late st Contact Info) Description 07/06/2022 [employer]t Message Enc [facility] Medical Group Family Medicine - [address] [address] Joyce Luevano, INSURANCE PROCESSOR Bi Tabor Social History Tobacco Use Types [...] No / Unsure 06/17/2022 10:38 AM FOOD PORTER documented as of this encounter Functional Status [...] 1:34 PM CST Please see note. Thanks PORTER * Yonatan Rodriguez RN - 07/07/2022 8:09 AM CST Please see note. Thanks PORTER documented in this encounter Plan of Treatment Not on file documented as of this encounter Visit Diagnoses Not on filedocumented in this encounter Care Teams Filter Operator Relationship Specialty Start Date End Date Joyce Luevano NP [address] [place] [address] PCP - General NURSE PRACTITIONER 01/14/20 10/26/23 Marielena Smallwood MD [address] [place] [address] PCP - General FAMILY PRACTICE 10/27/23 [place] [address] [place] [address] [employer] Ios Developer CARDIOVASCULAR DISEASE 05/30/16 documented as of this encounter
--- OUTSIDE RECORDS SUMMARY | 2024-12-15 03:10 | XMS_ITS | Encounter Summary ---
Author Organization [facility] - [facility] Address [address] [place] [address] Care Team Providers Care Director Peoplesoft Name Role Phone Frank Toure MD Unavailable Joyce Luevano NP Primary Care Provider Unavaila Marielena Adame MD Primary Care Provider Encounter Details Date Type Department Care Team (Late st Contact Info) Description 02/23/2022 MyCGoodThreadst Message Enc [facility] Medical Group Family Medicine - [address] [address] Joyce Luevano, GAME ATTENDANT Bi Tabor toenail Social History Tobacco Use [...] filedocumented in this encounter Care Teams Director Peoplesoft Relationship Specialty Start Date End Date Joyce Luevano NP [address] [place] [address] PCP - General NURSE PRACTITIONER 01/14/20 10/26/23 Marielena Smallwood MD [facility] [place] [address] PCP - General FAMILY PRACTICE 10/27/23 Frank Toure MD [address] [place] [address] [employer]ivo Bin Piler CARDIOVASCULAR DISEASE 05/30/16 documented as of this encounter
--- OUTSIDE RECORDS SUMMARY | 2024-12-15 03:10 | XMS_ITS | Encounter Summary ---
Author Organization [facility] - [facility] Address [address] [place] [address] Care Team Providers Care Wink Cutter Operator Name Role Phone Frank Toure MD Unavailable Joyce Luevano NP Primary Care Provider Unavaila Marielena Adame MD Primary Care Provider [phone] Encounter Details Date Type Department Care Team (Late st Contact Info) Description 03/13/2022 Bangeet Message Enc [facility] Medical Group Family Medicine - [address] [address] Joyce Luevano, LEGAL OFFICER Bi Tabor Update Social History Tobacco Use [...] on filedocumented in this encounter Care Teams Wink Cutter Operator Relationship Specialty Start Date End Date Joyce Luevano NP [address] [place] [address] PCP - General NURSE PRACTITIONER 01/14/20 10/26/23 Marielena Smallwood MD [address] [place] [address] PCP - General FAMILY PRACTICE 10/27/23 Frank Toure MD [address] [place] [address] [employer] Mannequin Sander And Finisher CARDIOVASCULAR DISEASE 05/30/16 documented as of this encounter
--- OUTSIDE RECORDS SUMMARY | 2024-12-15 03:10 | XMS_ITS | Clinical Summary ---
Author Organization [facility] Address [address] [place] [address] Care Team Providers Care Admissions Coordinator Name Role Phone Frank Toure MD Unavailable Marielena Smallwood MD Primary Care Provider [phone] Allergies Active Allergy Reactions Criticality Noted Date Comments Clonazepam Hallucinations Medium 12/09/2021 hallucinations Medications vitamin B-1 100 MG TabIndications:Seiz ure ([facility]) Take 1 tablet (100 mg total) by [...] 7.5 MG/0.1ML Liquid Therapy PackIndications:Tara llanes ([facility]) 2 sprays by Nasal route as needed. [...] No evidence of infection Urine cultures from [facility] last month were negative growth as [...] Antibiotics not indicated Osteoporosis 11/22/2018 Seizure ([facility]) 08/25/2017 Cerebrovascular accident (CV A) due to thrombosis of right posterior cerebral artery ([facility]) 02/20/2016 Assessment & Plan (11/29/2018 9:36 PM CDT): Patient has residual cognitive difficulties I think beyond with patient and her family have recognized in the past however as noted in adequate medication intake her side effects may be causing deterioration. Hypertension 07/24/2015 Hyperlipidemia 04/14/2015 Assessment & Plan (11/29/2018 9:36 PM CDT): Continue home meds and monitor Seizure ([facility]) 04/11/2015 Assessment & Plan (11/29/2018 9:39 PM CDT): History of generalized seizure disorder and being managed by a neurologist in [facility] however there is confusion from family about [...] Comments Blood Pressure 128/72 06/17/2022 10:46 AM WILDLIFE ECOLOGY PROFESSOR Pulse 95 06/17/2022 10:46 AM WILDLIFE ECOLOGY PROFESSOR Temperature 36.4 C (97.6 F) 06/07/2022 12:31 PM WILDLIFE ECOLOGY PROFESSOR Respiratory Rate 18 06/17/2022 10:4 6 AM WILDLIFE ECOLOGY PROFESSOR Oxygen Saturation 98% 06/17/2022 10: 46 AM WILDLIFE ECOLOGY PROFESSOR Inhaled Oxygen Concentration - - Weight 59 kg (130 lb) 06/17/2022 10:46 AM WILDLIFE ECOLOGY PROFESSOR stated - unable to weigh Height 180.3 cm (5' 11) 06/17/2022 10: 46 AM WILDLIFE ECOLOGY PROFESSOR Body Mass Index 18.13 06/17/2022 10:46 AM WILDLIFE ECOLOGY PROFESSOR Plan of Treatment Health Maintenance Due Date Last Done Comments Annual Physical 01/27/1963 Zoster Vaccines (1 of 2) 2011 Pneumococcal Vaccine: 50+ Years (2 of 2 - PCV) 02/03/2017 02/04/2016, 08/13/2015, 02/07/2015 RSV Immunization or 60+ Years (1 - Risk 60-74 years 1-dose series) 2021 COVID-19 Vaccine (4 - 2023-2 5 season) 2024 04/06/2021, 07/02/2020, 06/11/2020 PHQ-2 (Physician [place]) 05/30/2024 Colorectal Cancer Screening Colonoscopy (10 Years) [...] HEPATITIS C ANTIBODY Routine 06/23/2016 11:13 AM WILDLIFE ECOLOGY PROFESSOR from Last 3 Months or Most Recently [...] * HEPATITIS C ANTIBODY (06/23/2016 11:13 AM WILDLIFE ECOLOGY PROFESSOR) Pathologist [facility] HEPATITIS C AB NON-REACTIVE [place] [address] NR [facility] TO EPIC CONVERSION 06/23/2016 11:1 3 AM WILDLIFE ECOLOGY PROFESSOR 06/23/2016 11:13 AM WILDLIFE ECOLOGY PROFESSOR Narrative [facility] TO EPIC CONVERSION - 06/24/2016 6:41 PM WILDLIFE ECOLOGY PROFESSOR Result Communication: No patient communication needed at this time us Misael Maradiaga DO LABORATORY Final Result [facility] TO EPIC CONVERSION from Last 3 Months or Most Recently Relevant to Health Maintenance Insurance Advance Directives Documents on File Type Date Recorded Patient Conservation Engineer Expl anation Advance Directives and Living Will 10/17/2017 SADVANCE DIRECTIVES * Full Code (Latest Code Status on File) Date Activated Date Inactivated Comments 12/04/2018 1:44 PM 12/12/2018 3:19 PM * Full Code Date Activated Date Inactivated Comments 11/29/2018 6:21 PM 12/04/2018 1:38 PM Care Teams Admissions Coordinator Relationship Specialty Start Date End Date Marielena Smallwood MD [address] [place] [address] PCP - General FAMILY PRACTICE 10/27/23 Frank Toure MD [address] [place] [address] [place] Bullet Slug Casting Machine Operator CARDIOVASCULAR DISEASE 05/30/16
--- OUTSIDE RECORDS SUMMARY | 2024-12-15 03:10 | XMS_ITS | Encounter Summary ---
Author Organization [facility] - [facility] Address [address] [place] [address] Care Team Providers Care Insurance Producer Name Role Phone Frank Toure MD Unavailable Joyce Luevano NP Primary Care Provider Unavaila Marielena Adame MD Primary Care Provider [phone] Encounter Details Date Type Department Care Team (Late st Contact Info) Description 02/23/2022 MyChart Message Enc [facility] Medical Group Family Medicine - [address] [address] Joyce Luevano, BOUCHRA Bi updated [...] 10:33 AM CDT These updated through the [employer] system. documented in this encounter Plan of Treatment Not on file documented as of this encounter Visit Diagnoses Not on filedocumented in this encounter Care Teams Insurance Producer Relationship Specialty Start Date End Date Joyce Luevano NP [address] [place] [address] PCP - General NURSE PRACTITIONER 01/14/20 10/26/23 Marielena Smallwood MD [address] [place] [address] PCP - General FAMILY PRACTICE 10/27/23 Frank Toure MD [address] [place] [address] [employer] Library Customer Service Clerk CARDIOVASCULAR DISEASE 05/30/16 documented as of this encounter
--- OUTSIDE RECORDS SUMMARY | 2024-12-15 03:10 | XMS_ITS | Encounter Summary ---
Author Organization [facility] - [facility] Address [address] [place] [address] Care Team Providers Care Mold Release Worker Name Role Phone Frank Toure MD Unavailable Joyce Luevano NP Primary Care Provider Unavaila Marielena Adame MD Primary Care Provider [phone] Encounter Details Date Type Department Care Team (Late st Contact Info) Description 03/15/2022 LoudClickt Message Enc [facility] Medical Group Family Medicine - [address] [address] Joyce Luevano, CASING TRIMMER Bi Tabor Social History Tobacco Use Types [...] on filedocumented in this encounter Care Teams Mold Release Worker Relationship Specialty Start Date End Date Joyce Luevano NP [address] [place] [address] PCP - General NURSE PRACTITIONER 01/14/20 10/26/23 Marielena Smallwood MD [address] [place] [address] PCP - General FAMILY PRACTICE 10/27/23 Frank Toure MD [address] [place] [address] [employer] Fire Protection Specialist CARDIOVASCULAR DISEASE 05/30/16 documented as of this encounter
--- OUTSIDE RECORDS SUMMARY | 2024-12-15 03:10 | XMS_ITS | Encounter Summary ---
Author Organization [facility] - [facility] Address [address] [place] [address] Care Team Providers Care Surg Rn Name Role Phone Frank Toure MD Unavailable Joyce Luevano NP Primary Care Provider Unavaila Marielena Adame MD Primary Care Provider Encounter Details Date Type Department Care Team (Late st Contact Info) Description 05/11/2022 13th Labt Message Enc [facility] Medical Group Family Medicine - [address] [address] Joyce Luevano, BOUCHRA Pat appointment [...] on filedocumented in this encounter Care Teams Surg Rn Relationship Specialty Start Date End Date Joyce Luevano NP [address] [place] [address] PCP - General NURSE PRACTITIONER 01/14/20 10/26/23 Marielena Smallwood MD [address] [place] [address] PCP - General FAMILY PRACTICE 10/27/23 Frank Toure MD [address] [place] [address] [place] Rabbet Operator CARDIOVASCULAR DISEASE 05/30/16 documented as of this encounter
--- OUTSIDE RECORDS SUMMARY | 2024-12-15 03:10 | XMS_ITS | Encounter Summary ---
Author Organization [facility] Address [address] [place] [address] Care Team Providers Care Online Advertising Director Name Role Phone Frank Toure MD Unavailable Joyce Luevano NP Primary Care Provider Unavaila Marielena Adame MD Primary Care Provider [phone] Encounter Details Date Type Department Care Team (Late st Contact Info) Description 03/09/2022 [employer] Message Enc [facility] Family Medicine - [address] [address] Joyce Luevano, [employer]OL OPERATOR Update on [facility] Social History [...] 03/09/2022 10:09 AM CDT FYI * Yonatan Rodrigeuz RN - 03/09/2022 8:55 AM CDT See note. Thanks documented in this encounter Plan of Treatment Not on file documented as of this encounter Visit Diagnoses Not on filedocumented in this encounter Care Teams Online Advertising Director Relationship Specialty Start Date End Date Joyce Luevano NP [address] [place] [address] PCP - General NURSE PRACTITIONER 01/14/20 10/26/23 Marielena Smallwood MD [address] [place] [id number] PCP - General FAMILY PRACTICE 10/27/23 Frank Toure MD [address] [place] [address] [employer] CARDIOVASCULAR DISEASE 05/30/16 documented as of this encounter
[2024-12-15 03:18] LABS: Anion Gap 10 mmol/L (4-12); Chloride 101 mmol/L (98-107); Sodium 137 mmol/L (137-145); Troponin I < 0.012 ng/mL (0.000-0.034)
[2024-12-15] MEDS: LACTATED RINGERS 1,000 ML 999 ML IV CONT (03:20)
[2024-12-15] MEDS: MORPHINE SULFATE (*CRX) 4 MG/ML INJ IV PUSH (03:20)
[2024-12-15 03:47] LABS: Potassium 5.1 mmol/L (3.4-5.0)
--- NOTE | 2024-12-15 04:07 | ED_ITS ---
HPI - Chest Pain General Chief Complaint: Chest Pain Stated Complaint: chest pain Time Seen by Provider: 12/15/24 02:49 History of Present Illness HPI narrative: 64-year-old male with a past medical history including CVA, seizures, recurrent aspiration now with a JG tube. He also has a trach collar with humidified oxygen. Patient presents to the emergency department today with complaints of chest pain. Patient is from our local facility and well-known to this emergency department. He presents today after he called EMS for concerns of chest pain and they applied nitro paste to his chest that any relief. Patient did have a vomiting episode in route to the hospital and states that he vomits frequently even with the JG tube and has a history of gastroparesis. Patient denies any trauma or injury. On review of the EMR he was recently transferred to [facility] for JG tube placement in November and prior to this has been hospitalized multiple times for various reasons including aspiration and aspiration pneumonia. Related Data Home Medications ?Medication ?Instructions ?Recorded ?Confirmed ?Last Taken ?Type metoprolol tartrate 25 mg tablet 25 mg feeding tube BID 12/18/22 11/25/24 10/16/24 20:55 History 25 mg polyethylene glycol 3350 17 17 g feeding tube DAILY PRN 12/18/22 11/25/24 10/16/24 17:10 History gram/dose oral powder Constipation 17 grams bisacodyl 10 mg rectal suppository 10 mg RECTAL DAILY PRN Constipation 02/11/23 11/25/24 10/17/24 01:50 History 10 mg sennosides 8.6 mg tablet (senna) 8.6 mg feeding tube BID 02/11/23 11/25/24 10/16/24 10:00 History 8.6 mg guaifenesin 100 mg/5 mL oral liquid 300 mg feeding tube Q12H PRN Cough 07/08/23 11/25/24 10/17/24 05:50 History 300 mg magnesium hydroxide 400 mg/5 mL 30 ml feeding tube HS PRN 12/13/23 11/25/24 09/11/24 12:10 History oral suspension (Milk of Magnesia) Constipation 30 mL atorvastatin 40 mg tablet 40 mg feeding tube HS 02/10/24 11/25/24 10/16/24 21:00 History 40 mg calcium carbonate 500 mg/5 mL (as 1,250 mg feeding tube Q6H PRN 02/10/24 11/25/24 Unknown History calcium carb 1,250 mg/5 mL) oral Heartburn suspension folic acid 1 mg tablet 1 mg feeding tube DAILY 02/10/24 11/25/24 10/16/24 10:00 History 1 mg ipratropium 0.5 mg-albuterol 3 mg 3 ml inhalation Q6H PRN Shortness 02/10/24 11/25/24 Unknown History (2.5 mg base)/3 mL nebulization Of Breath soln magnesium citrate (Citroma oral 296 ml feeding tube DAILY PRN 02/10/24 11/25/24 Unknown History solution) Constipation thiamine HCl (vitamin B1) 100 mg 100 mg feeding tube DAILY 02/10/24 11/25/24 10/16/24 10:00 History tablet 100 mg acetaminophen 650 mg/20.3 mL oral 650 mg feeding tube Q4H PRN Pain 03/30/24 11/25/24 10/16/24 17:10 History suspension (Scale Score 1-3) 650 mg aspirin 81 mg chewable tablet 81 mg feeding tube DAILY 03/30/24 11/25/24 10/16/24 10:00 History 81 mg finasteride 5 mg tablet 5 mg feeding tube DAILY 10/18/24 11/25/24 10/16/24 10:00 History 5 mg glycopyrrolate 2 mg tablet 2 mg feeding tube Q8H 10/18/24 11/25/24 10/17/24 01:50 History 2 mg metoclopramide HCl 10 mg tablet 10 mg feeding tube Q6H PRN nausea 10/18/24 11/25/24 10/16/24 19:15 History and vomiting 10 mg ondansetron HCl 4 mg tablet 4 mg feeding tube Q6H PRN nausea 10/18/24 11/25/24 10/15/24 00:50 History and vomiting 4 mg pantoprazole 40 mg tablet,delayed 40 mg PO Q12H 10/18/24 11/25/24 10/16/24 17:10 History release 40 mg Allergies Allergy/AdvReac Type Severity Reaction Status Date / Time clonazepam AdvReac Unknown drowsiness Verified 12/13/24 07:33 Review of Systems 2 Review of Systems: As reviewed above in [facility] Past Medical History Medical History Acute lactic acidosis History of multiple strokes Residual expressive aphasia, dysphagia, and left-sided weakness. Esophagitis Anemia Aspiration pneumonia Elevated LFTs Atrial fibrillation with rapid ventricular response Thrombocytopenia Rash of face Lung collapse Right Mucus plugging of bronchi Increased tracheal secretions Epilepsy Intractable seizure disorder Status epilepticus Severe sepsis Tracheitis Sepsis with acute hypoxic respiratory failure Acute kidney injury UTI (urinary tract infection) Acute pancreatitis Diarrhea Cholecystitis Pancreatitis 09/2024 Deep venous thrombosis of upper extremity Benign prostatic hyperplasia Esophageal diverticulum Gastroparesis Iron deficiency anemia Vascular dementia with psychotic disturbance Surgical History Surgical History History of gastrostomy tube placement (07/09/23) History of tracheostomy History of left above knee amputation Family History Family History Other Unknown family medical history Social History Social History Social History: Surrogate medical decision maker: Adriane Hilliard, sibling. Code status: Full code. 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 HEAD: Normocephalic, atraumatic EYES: Pupils equal and reactive ENT: Nares clear, no rhinorrhea or epistaxis. Mucous membranes moist. Trach collar with no significant secretions or in-line suction output. Poor oral dentition. NECK: Supple. CHEST: Coarse bilateral breath sounds, coughing occasionally. Reproducible tenderness with palpation. HEART: Tachycardic rate, regular rhythm. No murmur heard. Normal pulses ABDOMEN: Soft and nondistended, nontender, no rigidity or guarding. G-tube in place without any overlying erythema or cellulitis EXTREMITIES: Normal range of motion. No edema, contractures of left upper extremity and bilateral lower extremities SKIN: Warm, dry, no rash. NEURO: Mentation at baseline, chronic left hemiplegia, alert at baseline. PSYCH: Appropriate Course Vital Signs Vital signs: Vital Signs Temperature 37.0 C 12/15/24 01:40 Pulse Rate 127 H 12/15/24 01:40 Respiratory Rate 20 12/15/24 01:40 Blood Pressure 162/99 H 12/15/24 01:40 Pulse Oximetry 97 12/15/24 01:40 Temperature 36.6 C 12/15/24 06:48 Pulse Rate 121 H 12/15/24 06:48 Respiratory Rate 18 12/15/24 06:48 Blood Pressure 155/91 H 12/15/24 06:48 Pulse Oximetry 95 12/15/24 06:48 Oxygen Delivery Trach Collar 12/15/24 02:19 Procedures EJ/Peripheral Line Arm L: EJ/Peripheral Line Date: 12/15/24 EJ/Peripheral Line Time: 06:16 Time Out Performed: Yes Skin Cleansed in Sterile Fashion: Yes Ultrasound Guided: Yes Size (gauge): 20 IV Secured and Dressing Applied: Yes Patient Tolerated Procedure: well and no complications Additional Comments: Multiple failed previous attempts x4 prior to successful left 20 gauge MDM - Chest Pain MDM Narrative Medical decision making narrative: 64-year-old male with a past medical history including CVA, seizures, recurrent aspiration now with a JG tube. He also has a trach collar with humidified oxygen. Patient presents to the emergency department today with complaints of chest pain. Patient is from our local facility and well-known to this emergency department. He presents today after he called EMS for concerns of chest pain and they applied nitro paste to his chest without any relief. Patient did have a vomiting episode in route to the hospital and states that he vomits frequently even with the JG tube and has a history of gastroparesis. Patient denies any trauma or injury. On review of the EMR he was recently transferred to [facility] for JG tube placement in November and prior to this has been hospitalized multiple times for various reasons including aspiration and aspiration pneumonia. Patient is slightly tachycardic, normal oxygen level on trach mask, no fever or tachypnea. Blood pressure mildly elevated. Patient does have very coarse bilateral breath sounds and frequently vomits which raises suspicion for an aspiration event leading toward symptoms today. His bed-bound nature and chcf status also raise risk for thromboembolic disease especially with his tachycardia accompanying chest pain. Patient is a difficult vascular access and multiple IVs were attempted and ultrasound guidance used to obtain access for CT scan. CT angiography PE protocol was ordered, CBC, CMP, troponin, EKG and chest x-ray obtained. He was given a fluid bolus and re-evaluated. Patient also provided a nighttime dose of his Keppra medications through IV which patient was very appreciative of. CT angiography shows no evidence of pulmonary embolism, no pneumonia or acute cardiopulmonary pathology. No evidence of aspiration. Laboratory studies showed no leukocytosis or anemia. Normal platelet count. Coagulation panel is normal. Electrolytes are unremarkable. Normal creatinine, normal glucose, LFTs around baseline. Negative troponin. 3 hour troponin is also negative. EKG shows no ectopy and just sinus tachycardia. Patient's heart rate did come down with fluids and fluctuates which is chronic for him based on review of the EMR with multiple recurrent heart rate elevations in this region without acute concern based on current workup and imaging. Patient re-evaluated and doing well, cheerful and interactive this morning, joking with staff. Has not had any vomiting or aspiration events here. Given Pepcid and Zofran. No seizure activity seen. Chest pain improved with medications. Safe for discharge back to nursing facility. Medical Records Data Attestation: I reviewed the patient's medical records. Lab Data Attestation: I reviewed the patient's lab results. 12/15/24 02:02 12/15/24 02:02 Labs: Lab Results 12/15/24 12/15/24 Range/Units 02:02 05:13 WBC 7.6 (4.5-10.0) K/mm3 RBC 4.27 L (4.6-6.20) M/mm3 Hgb 13.5 L (14.0-18.0) g/dL Hct 41.0 L (42.0-52.0) % MCV 96.0 (80-100) fl MCH 31.6 (26-34) pg MCHC 32.9 (32-36) g/dl RDW 13.2 (11.5-14.5) % Plt Count 197 (150-375) k/mm3 MPV 11.8 H (7.4-10.4) fl Immature Gran % (Auto) 0.1 (0-0.5) % Neut % (Auto) 54.0 (45.5-73.1) % Lymph % (Auto) 29.5 (18.3-44.2) % [place] % (Auto) 9.8 H (2.6-8.5) % Eos % (Auto) 6.2 H (0-4.4) % Baso % (Auto) 0.4 (0.2-1.2) % Lymph # (Auto) 2.25 (0.9-3.2) K/mm3 [place] # (Auto) 0.8 H (0.1-0.6) K/mm3 Eos # (Auto) 0.5 H (0-0.3) K/mm3 Baso # (Auto) 0.0 (0.0-0.1) K/mm3 Abs Immat Gran (auto) 0.01 (0.00-0.031) K/mm3 Absolute Neuts (auto) 4.1 (1.3-6.7) K/mm3 Absolute Nucleated RBC 0.000 (0.0-0.012) K/mm3 Nucleated RBC % 0.0 (0.0-0.2) % PT 13.2 (11.1-14.7) Seconds INR 1.0 APTT 32.1 (22.3-36.8) Seconds Sodium 137 (137-145) mmol/L Potassium 5.1 H (3.4-5.0) mmol/L Chloride 101 (98-107) mmol/L Carbon Dioxide 26 (22-30) mmol/L Anion Gap 10 (4-12) mmol/L BUN 15 D (9-20) mg/dL Creatinine 0.52 L (0.7-1.3) mg/dL Estim Creat Clear Calc Not Reportable Estimated GFR > 60 (59 - ) Glucose 115 H (65-110) mg/dL Calcium 9.6 (8.4-10.2) mg/dL Total Bilirubin 0.6 (0.2-1.3) mg/dL AST 65 H (17-59) U/L ALT 76 H (6-50) U/L Alkaline Phosphatase 97 (38-126) U/L Troponin I < 0.012 < 0.012 (0.000-0.034) ng/mL Total Protein 8.9 H (6.3-8.2) g/dL Albumin 4.6 (3.5-5.1) g/dL Lipase 97 (23-300) U/L Imaging Data Attestation: I personally reviewed and interpreted this imaging study as follows: My impression: No CT angiography evidence of pulmonary embolism, no aspiration, no pneumonia. Discharge Plan Discharge Clinical Impression: Chest pain Patient Disposition: NH Fpc/Asst Living Condition: Stable Instructions: Antibiotic Form, Chest Pain (ED) Additional Instructions: Your cardiac enzymes are undetectable. CT scan shows no blood clots or pneumonia. No signs of aspiration pneumonia or pneumonitis. Laboratory studies are reassuring. We provided you seizure medications here as well as some fluids and pain control medications. Follow-up with your doctors on outpatient basis. Return with any emergent concerns. Patient Language: Tunisian Prescriptions: No Action bisacodyl 10 mg Suppository 10 mg RECTAL DAILY PRN (Reason: Constipation) Rx Instructions: if no results for MOM sennosides [senna] 8.6 mg Tablet 8.6 mg feeding tube BID guaifenesin 100 mg/5 mL liquid 300 mg feeding tube Q12H PRN (Reason: Cough) magnesium hydroxide [Milk of Magnesia] 400 mg/5 mL Suspension 30 ml feeding tube HS PRN (Reason: Constipation) Rx Instructions: If no BM in 3 days amoxicillin-pot clavulanate 400-57 mg/5 mL Suspension For Reconstitution 5 ml feeding tube Q8HR Qty: 90 0RF metoclopramide HCl [Reglan] 10 mg tablet 10 mg feeding tube Q6H PRN (Reason: nausea and vomiting) Qty: 30 0RF polyethylene glycol 3350 17 gram/dose powder 17 g feeding tube DAILY PRN (Reason: Constipation) metoprolol tartrate 25 mg tablet 25 mg feeding tube BID atorvastatin 40 mg tablet 40 mg feeding tube HS ipratropium-albuterol 0.5 mg-3 mg(2.5 mg base)/3 mL solution for nebulization 3 ml INHALATION Q6H PRN (Reason: Shortness Of Breath) thiamine HCl (vitamin B1) 100 mg Tablet 100 mg feeding tube DAILY magnesium citrate [Citroma] Solution 296 ml feeding tube DAILY PRN (Reason: Constipation) Rx Instructions: if no results from enema folic acid 1 mg tablet 1 mg feeding tube DAILY calcium carbonate 500 mg/5 mL (1,250 mg/5 mL) Suspension 1,250 mg feeding tube Q6H PRN (Reason: Heartburn) aspirin 81 mg Tablet,Chewable 81 mg feeding tube DAILY acetaminophen 650 mg/20.3 mL Suspension 650 mg feeding tube Q4H PRN (Reason: Pain (Scale Score 1-3)) finasteride 5 mg tablet 5 mg feeding tube DAILY glycopyrrolate 2 mg tablet 2 mg feeding tube Q8H metoclopramide HCl 10 mg tablet 10 mg feeding tube Q6H PRN (Reason: nausea and vomiting) ondansetron HCl 4 mg tablet 4 mg feeding tube Q6H PRN (Reason: nausea and vomiting) pantoprazole 40 mg tablet,delayed release (DR/EC) 40 mg PO Q12H amlodipine [Norvasc] 5 mg Tablet 5 mg feeding tube DAILY 30 Days Qty: 30 1RF isosorbide dinitrate 5 mg Tablet 5 mg feeding tube TID 30 Days Qty: 90 1RF levetiracetam 100 mg/mL solution 2,000 mg feeding tube BID 30 Days Qty: 0 1RF lacosamide 10 mg/mL solution 250 mg feeding tube BID 30 Days Qty: 200 2RF Follow-up/Referrals: PHYSICIAN NOT ON STAFF,NONSTAFF [Primary Care Provider] - Stand Alone Forms: Skilled Nursing Discharge Time of Disposition: 06:21
[2024-12-15 04:08] VITALS: BP 159/87; PULSE 130; RESP 18; TEMP 36.4; O2SAT 95
[2024-12-15 04:56] VITALS: BP 147/86; PULSE 124; RESP 18; TEMP 36.6; O2SAT 100
[2024-12-15] MEDS: levETIRAcetam 1500MG/NACL100ML 1,500 MG/100 ML BAG 400 MG IVPB (05:07)
--- NOTE | 2024-12-15 05:15 | ECG_ITS ---
Test Date: 2024-12-15 05:19:23 Measurements Intervals [place] Rate: 120 P: 107 GA: 183 QRS: 218 QRSD: 84 T: 100 QT: 314 QTc: 444 Interpretive Statements SINUS TACHYCARDIA SUSPECTED PREVIOUS INFERIOR AND SEPTAL INFARCTION ARM LEADS REVERSED [INVERTED P AND QRS IN I] ABNORMAL RHYTHM ECG Compared to ECG 12/15/2024 01:38:25 ARM LEAD REVERSAL IS NOTED Electronically Signed On 12-15-2024 08:55:11 CDT by Chai Lentz M.D.
[2024-12-15 06:12] LABS: Troponin I < 0.012 ng/mL (0.000-0.034)
[2024-12-15] MEDS: ONDANSETRON INJ 4 MG/2 ML VIAL IV PUSH (06:27)
[2024-12-15] MEDS: FAMOTIDINE 20 MG/2 ML VIAL IV PUSH (06:27)
[2024-12-15 06:48] VITALS: BP 155/91; PULSE 121; RESP 18; TEMP 36.6; O2SAT 95
== END 2024-12-15 06:51 ==
PROVIDERS: Emergency Provider Student in an Organized Health Care Education/Training Program
DX: R07.9 Chest pain, unspecified (principal); F01.52 Vascular dementia, unspecified severity, with psychotic disturbance; I69.920 Aphasia following unspecified cerebrovascular disease; I69.991 Dysphagia following unspecified cerebrovascular disease; R13.10 Dysphagia, unspecified; I69.954 Hemiplegia and hemiparesis following unspecified cerebrovascular disease affecting left non-dominant side; I48.91 Unspecified atrial fibrillation; G40.909 Epilepsy, unspecified, not intractable, without status epilepticus; J44.9 Chronic obstructive pulmonary disease, unspecified; D50.9 Iron deficiency anemia, unspecified; K31.84 Gastroparesis; N40.0 Benign prostatic hyperplasia without lower urinary tract symptoms; Z93.4 Other artificial openings of gastrointestinal tract status; Z93.0 Tracheostomy status; Z86.718 Personal history of other venous thrombosis and embolism; Z87.891 Personal history of nicotine dependence; Z87.440 Personal history of urinary (tract) infections; Z89.612 Acquired absence of left leg above knee; Z79.01 Long term (current) use of anticoagulants; Z79.899 Other long term (current) drug therapy; R00.0 Tachycardia, unspecified; R94.31 Abnormal electrocardiogram [ECG] [EKG]
CPT/HCPCS: 36415; 71045; 71275; 80053; 83690; 84484; 85025; 85610; 85730; 93005; 96361; 96365; 96375; 99284; J1953; J2270; J2405; J7120; Q9967

== ENCOUNTER 2024-12-22 21:13 | Emergency (ER) | payer OTHER, SELFPAY ==
--- NOTE | ~2024-12-22 | XR_ITS ---
CHEST RADIOGRAPH CLINICAL HISTORY: poss asp . COMPARISON: 12/15/2024 TECHNIQUE: Single portable view of the chest. FINDINGS Tracheostomy tube is present. The remainder of the cardiomediastinal silhouette is otherwise unremarkable. Left basilar atelectasis is identified. The remainder of the lungs are clear. IMPRESSION: Left basilar atelectasis, without focal infiltrate or effusion. Reviewed, dictated and finalized at location A.
--- NOTE | ~2024-12-22 | CT_ITS ---
CLINICAL INDICATION: Abdominal pain COMPARISON: 11/23/2024, which demonstrated the percutaneous gastrostomy tube with balloon to be inflat ed within the distal stomach, and causing gastric out let obstruction.. TECHNIQUE: Multiple contiguous axial images of the abdomen and pelvis were performed without the admi nistration of intravenous contrast The dose-length product (DLP) was 860.08 mGy-cm. Automated exposure control and iterative reconstruction technique were employed. FINDINGS/OBSERVATIONS: Visualized lower thorax: Bibasilar atelectasis is redemonstrated. The heart is of normal size, without pericardial effusion. Small hiatal hernia is present. Liver: Punctate calcifications identified within the hepatic parenchyma, suggesting prior granulomatous dise ase. The remainder of the liver demonstrates otherwise homogeneous attenuation and is not enlarged. Gallbladder and biliary system: The gallbladder is only minimally distended, and otherwise unremarkable. Pancreas: Limited evaluation of the pancreas secondary to the lack of intravenous contrast. Spleen: The spleen demonstrates homogeneous attenuation and is not enlarged. Kidneys: Innumerable nonobstructing 2 and 3 mm stones within the bilateral kidneys. The remainder of the bilateral kidneys are otherwise unremarkable, without hydronephrosis or addition al renal calculi. Adrenal glands: Unremarkable. Gastrointestinal tract: Percutaneous gastrojejunostomy identified with its balloon along the undersur face of the anterior abdominal wall (in good position). Contrast opacified feces within the rectosigmoid colon with mild distention. Appendix: The air-filled appendix is of normal caliber (axial series, images 132 through 147). Vasculature: Unremarkable. Lymph nodes: No pathologically enlarged or morphologically suspicious lymph nodes within the retroperitoneum or at the root of the mesentery. Pelvic structures: The bladder is distended, and otherwise unremarkable. The prostate gland is not enlarged. Body wall and musculoskeletal: Age-appropriate degenerative disease within the lower thoracic and lumbosacral spine. IMPRESSION: Percutaneous gastrojejunostomy in good position. Bilateral nonobstructing renal calculi. Bibasilar atelectasis. Reviewed, dictated and finalized at location A.
[2024-12-22 21:13] VITALS: BP 144/84; PULSE 104; RESP 20; TEMP 36.8; O2SAT 97
--- OUTSIDE RECORDS SUMMARY | 2024-12-22 21:36 | XMS_ITS | Clinical Summary ---
Author Organization [facility] Address [address] [place] [address] Care Team Providers Care Mixer Operator Vacuum Pan Salt Name Role Phone Elizabeth Sullivan RN Unavailable [phone] Jack Arroyo MD Primary Care Provider Rosie marsh Source Comments [facility],non-owned Affiliates and Associated Physician Practices is amultiple site organization consisting of ambulatory clinics and hospital sitesin [place], [place], [place] and [place]. This disclosure is being madepursuant to the Care Everywhere program and may not contain all information available regarding this patient. Last updated 18.[facility] Allergies Active Allergy Reactions Criticality Noted Date [...] Wound care instructions (if applicable) Per wound FDC Meds Being Held/Why (if any): Depakote held due to complication of pancreatitis. Follow-up Tasks (to be completed prior to/for discharge, e.g. labs, imaging, follow-ups): IR G to GJ tube conversion Your team's Preferred Contact Information for any potential follow up questions: Yue Rojas, resident [address] Consultants that need to be Informed Prior [...] Wound care instructions (if applicable) Per wound FDC Meds Being Held/Why (if any): Depakote held [...] Team Description 12/12/2024 Telephone Transitional Care at [address] [phone] Tiffani Moreno, paper bag inspector 11/26/2024 4:27 PM CDT - 12/11/2024 5:48 PM CDT Hospital Encounter [facility] [address] [place] [phone] Brian Lawrence MD Atilgan, Deniz, MD Hazam, Randa, MD Jain, Aman, DO Arshad, Iqra, MD Neurology Discharge Disposition: Nursing Facility:Medicaid 11/14/2024 10:45 AM CDT Office Visit [facility] - Vascular Surgery [address] [place] [address], [place] [address] Anna Membreno MD Pain in extremity, unspecified extremity (Primary Dx) 11/14/2024 Travel 11/05/2024 Telephone [facility] - Centralized Scheduling [address] [place] [address] Alden Hurtado MD Appointment 10/30/2024 Telephone [facility] - Centralized Scheduling [facility] [place] [phone] Sean Raymundo DO Appointment 10/22/2024 Telephone [facility] [address] [place] [phone] Cade Guthrie MD General (OSH Transfer) 10/17/2024 2:47 PM CDT - 10/18/2024 10:58 AM CDT Emergency [facility] EMERGENCY DEPARTMENT [address] [place] [phone] Caio Elder MD Lorber, Steven A, MD Abdominal pain, unspecified abdominal location (Primary Dx); Lung nodule Discharge Disposition: Home or Self Care 10/17/2024 Travel from Last 3 Months Immunizations Immunization Administration Dates Next Due [employer] primary monoval ent 12+ yr 0.3mL Purple [...] and heating? Not hard at all 08/06/2024 [facility] Occupat ional Health - Occupational Stress [...] in a longterm (including now)? No 06/19/2023 Housing Stability Vital [...] in the past [address] [facility], were you homeless or living in a longterm (including now)? No 08/06/2024 Sex and Gender Information Value Date Recorded Sex Assigned at Not on file Legal Sex Male 5:07 PM [employer] GUID[employer] COUNSELOR Gender Identity Not on file Sexual Orientation [...] Office Visit [facility] - GI [address] [place] [phone] 03/06/2025 10:00 AM CDT Office Visit [facility] - Neurology [address] [place] [phone] Saloni King, SUPPLIER QUALITY ENGINEERING MANAGER-ASSISTANT SURVEYOR [facility] [place] [address] Health Maintenance Due Date Last Done Comments [...] of21 resultswithin the time period is included. [facility] Glucose WB/POC 95 70 - 99 mg/dL 12/11/2024 5:01 PM CDT [facility] Specimen Type Arterial/C apillary 12/11/2024 5:01 PM CDT [facility] Blood BLOOD SPECIMEN / Unknown 12/11/2024 4:58 PM CDT 12/11/2024 5:01 PM CDT Marianne Daniels MD LAB - POINT OF CARE ORDERABLES F inal Result [facility] [address] [place] [address], [facility] [phone] * (ABNORMAL) RENAL FUNCTION PANEL (12/11/2024 12:28 AM CDT) Only the most recent of4 resultswithin the time period is included. [facility] BUN 10 7 - 26 mg/dL 12/11/2024 1:14 AM CDT [facility] Creatinine 0.49(L) 0.71 - 1.16 mg/dL 12/11/2024 1:14 AM CDT [facility] Sodium 140 136 - 145 mmol/L 12/11/2024 1:14 AM [facility] Potassium 4.1 3.5 - 4.5 mmol/L 12/11/2024 1:14 AM [facility] Chloride 110(H) 98 - 107 mmol/L 12/11/2024 1:14 AM [facility] CO2 29 22 - 29 mmol/L 12/11/2024 1:14 AM [facility] Glucose 121(H) 70 - 99 mg/dL 12/11/2024 1:14 AM [facility] Albumin 3.0(L) 3.4 - 5.0 g/dL 12/11/2024 1:14 AM [facility] Calcium 8.6 8.4 - 10.2 mg/dL 12/11/2024 1:14 AM [facility] Phosphorus 3.0 2.8 - 5.1 mg/dL 12/11/2024 1:14 AM [facility] Anion Gap 1(L) 6 - 16 12/11/2024 1:14 AM [facility] BUN/Creatinine Ratio 20 7 - 23 12/11/2024 1:14 AM [facility] Osmolality Calculated 290 275 - 295 mOsm/kg 12/11/2024 1:14 AM [facility] eGFR by CKD-EPI >90 >=90 mL/min/1.7 3 m2 12/11/2024 1:14 AM [facility] Comment:Estimated Glomerular Filtration Rate (eGFR) calculated using the CKD-EPI Creatinine Equation (2020), per the National Kidney Foundation and [place] Society of Nephrology recommendations. Blood BLOOD SPECIMEN / Unknown Venipuncture / Unknown 12/11/2024 12:28 AM CDT 12/11/2024 12:48 AM CDT us Herminio Morrison DO LAB - CHEMISTRY ORDERABLES Final Result [facility] [address] [place] [address], [facility] [phone] * MAGNESIUM BLOOD (12/11/2024 12:28 AM CDT) Only the most recent of6 resultswithin the time period is included. [facility] Magnesium 1.8 1.6 - 2.6 mg/dL 12/11/2024 1:14 AM CDT [facility] Blood BLOOD SPECIMEN / Unknown Venipuncture / Unknown 12/11/2024 12:28 AM CDT 12/11/2024 12:48 AM CDT Herminio Morrison DO LAB - CHEMISTRY ORDERABLES Final Result [facility] [address] [place] [address], [facility] [phone] * EKG 12-Lead (12/07/2024 8:47 AM CDT) Only the most recent of2 resultswithin the time period is included. [facility] Ventricular Rate 106 BPM [facility] Atrial Rate 106 BPM [facility] P-R Interval 156 ms [facility] QRS Duration ms 82 ms [facility] Q-T Interval ms 362 ms [facility] QTC Calculation (Bezet) 480 ms [facility] Calculated P [place] 56 degrees [facility] Calculated R [place] -22 degrees [facility] Calculated T [place] 86 degrees [facility] Interpretation EKG SINUS TACHYCARDIA SEPTAL INFARCT (CITED ON OR BEFORE 09-OCT-2022) INFERIOR INFARCT (CITED ON OR BEFORE 27-JUL-2024) ABNORMAL ECG WHEN COMPARED WITH ECG OF 01-DEC-2024 22:00, PREMATURE VENTRICULAR COMPLEXES ARE NO LONGER PRESENT QUESTIONABLE CHANGE IN INITIAL FORCES OF ANTEROSEPTAL LEADS ST NO LONGER ELEVATED IN ANTERIOR LEADS Confirmed by ALISON OLSEN, ASHLYN GONZALES ([id number]) on 12/08/2024 3:56:27 PM [facility] 12/07/2024 8:47 AM CDT 12/08/2024 3:56 PM CDT Herminio Morrison DO ECG ORDERABLES Edited Result - Final Performing Organization Address City/[facility]/ZIP Co de Phone Number [facility] * PT-INR [facility] (12/07/2024 12:29 AM CDT) [facility] PT 14.1 12.1 - 14.8 Seconds 12/07/2024 1:13 AM [facility] INR 1.1 See Comment 12/07/2024 1:13 AM [facility] Comment:The suggested therap eutic range for standard coumadin (warfarin) therapy is an INR of 2.0-3.0. For high-risk patients (Mechanical Mitral Valve Prosthesis, etc.), the suggested prophylactic therapeutic range is an INR of 2.5-3.5. Blood BLOOD SPECIMEN / Unknown Venipuncture / Unknown 12/07/2024 12:29 AM CDT 12/07/2024 12:52 AM CDT Gaurav Leroy PA-C LAB - COAGULATION ORDERA BLES Final Result [facility] [address] [place] [address], [facility] [phone] * (ABNORMAL) BASIC METABOLIC PANEL (CALCIUM TOTAL) (12/07/2024 12:29 AM CDT) Only the most recent of2 resultswithin the time period is included. [facility] BUN <5(L) 7 - 26 mg/dL 12/07/2024 1:17 AM [facility] Creatinine 0.51(L) 0.71 - 1.16 mg/dL 12/07/2024 1:17 AM [facility] Sodium 141 136 - 145 mmol/L 12/07/2024 1:17 AM [facility] Potassium 2.7(L) 3.5 - 4.5 mmol/L 12/07/2024 1:17 AM [facility] Chloride 111(H) 98 - 107 mmol/L 12/07/2024 1:17 AM [facility] CO2 25 22 - 29 mmol/L 12/07/2024 1:17 AM [facility] Glucose 83 70 - 99 mg/dL 12/07/2024 1:17 AM [facility] Calcium 8.7 8.4 - 10.2 mg/dL 12/07/2024 1:17 AM [facility] Anion Gap 5(L) 6 - 16 12/07/2024 1:17 AM [facility] BUN/Creatinine Ratio <10 7 - 23 12/07/2024 1:17 AM T [facility] Osmolality Calculated <288 275 - 295 mOsm/kg 12/07/2024 1:17 AM [facility] eGFR by CKD-EPI >90 >=90 mL/min/1.7 3 m2 12/07/2024 1:17 AM [facility] Comment:Estimated Glomerular Filtration Rate (eGFR) calculated using the CKD-EPI Creatinine Equation (2020), per the National Kidney Foundation and [place] Society of Nephrology recommendations. Blood BLOOD SPECIMEN / Unknown Venipuncture / Unknown 12/07/2024 12:29 AM CDT 12/07/2024 12:51 AM CDT Herminiochrystal Morrison DO LAB - CHEMISTRY ORDERABLES Final Result Performing Organization Address City/[facility]/ZIP Co de Phone Number [address] [address], [place] [phone] * (ABNORMAL) PHOSPHORUS BLOOD (12/07/2024 12:29 AM CDT) Only the most recent of2 resultswithin the time period is included. Phosphorus 2.7(L) 2.8 - 5.1 mg/dL 12/07/2024 1:17 AM CDT [facility] Blood BLOOD SPECIMEN / Unknown Venipuncture / Unknown 12/07/2024 12:29 AM CDT 12/07/2024 12:51 AM CDT us Herminio Morrison DO LAB - CHEMISTRY ORDERABLES Final Result [address] [address], [place] [phone] * IR Perc G To GJ Tube Exchange (12/06/2024 11:22 AM CDT) Anatomical Region Laterality Modality Abdomen X-Ray Angiograph y 12/06/2024 4:35 PM CDT Impressions 12/09/2024 9:09 PM CDT Impression: Successful conversion of the existing gastrostomy catheter for a new 18-Algerian balloon-retention gastrojejunostomy catheter under fluoroscopic guidance, as [...] Procedure: Existing gastrostomy tube exchange for 18 Algerian gastrojejunostomy tube Start time: 1107 End time: 1120 Sedation initiated time: N/A Fluoroscopic time: 0.8 minutes Contrast: 30 mL of Isovue-300 Procedure in detail: The procedure, risks, and possible complications were explained to the patient in detail, and informed consent was obtained. The patient was placed supine on the procedure table. A 4 h youth development specialist film of abdomen was obtained, which showed an existing properly placed gastrostomy tube. Contrast was hand injected through the existing gastrostomy catheter and showed opacification of the gastric lumen. A 0.035 inch Glidewire was advanced into the stomach through the existing catheter which was subsequently removed over the wire. Glidewire was advanced into the jejunum under fluoroscopic guidance. A new 18-Algerian gastrojejunostomy catheter was then advanced over the [...] Procedure: Existing gastrostomy tube exchange for 18 Algerian gastrojejunostomy tube Start time: 1107 End time: 1120 Sedation initiated time: N/A Fluoroscopic time: 0.8 minutes Contrast: 30 mL of Isovue-300 Procedure in detail: The procedure, risks, and possible complications were explained to the patient in detail, and informed consent was obtained. The patient was placed supine on the procedure table. A 4 h youth development specialist film of abdomen wasobtained, which showed an existing properly placed gastrostomy tube. Contrast was hand injected through the existing gastrostomy catheter and showed opacification of the gastric lumen. A 0.035 inch Glidewire was advanced into the stomach through the existing catheter which was subsequently removed over the wire. Glidewire was advanced into thejejunum under fluoroscopic guidance. A new 18-Algerian gastrojejunostomy catheterwas then advanced over the wire [...] of the existing gastrostomy catheterfor a new 18-Algerian balloon-retention gastrojejunostomy catheter under fluoroscopic guidance, as [...] 4.9 <=5.6 % 12/03/2024 3:17 PM CDT [facility] Estimated Average Glucose 94 mg/dL 12/03/2024 3:17 PM CDT [facility] Comment: HbA1c Interpretation: Normal : < 5.7% Pre-diabetes: 5.7-6.4% Diabetes: Equal to or greater than 6.5% Test results diagnostic of diabetes should be repeated for confirmation. Treatment target values recommended by ADA and other clinical organizations should be used to evaluate metabolic control in patients. Reference: [place] Diabetes Association, Standards of Care in Diabetes [...] LAB - CHEMISTRY ORDERABLES Lulu l Result [facility] [address] [place] [address], [facility] [phone] * TROPONIN-I HIGH SENSITIVE (12/03/2024 8:37 AM CDT) Only the most recent of4 resultswithin the time period is included. Troponin I High Sensitive 7 <=35 ng/L 12/03/2024 9:41 AM CDT [facility] Blood BLOOD SPECIMEN / Unknown Lab Venipuncture / Unknown 12/03/2024 8:37 AM CDT 12/03/2024 9:07 AM CDT us Neha Palomino MD LAB - CHEMISTRY ORDERABLES F inal Result Performing Organization Address [facility] Co de Phone Number [address] [address], [place] [phone] * POTASSIUM BLOOD (12/03/2024 8:37 AM CDT) [facility] Potassium 3.8 3.5 - 4.5 mmol/L 12/03/2024 9:31 AM CDT [facility] Blood BLOOD SPECIMEN / Unknown Lab Venipuncture / Unknown 12/03/2024 8:37 AM CDT 12/03/2024 9:07 AM CDT us Paige Brewster MD LAB - CHEMISTRY ORDERABLES Final Result Performing Organization Address [facility] de Phone Number [address] [address], [place] [phone] * (ABNORMAL) PTT [facility] (12/03/2024 5:20 AM CDT) [facility] APTT 42.5(H) 23.0 - 38.4 Seconds 12/03/2024 11:06 AM CDT [facility] Comment:Suggested therapeuti c range for full dose I.V. unfractionated heparin therapy for venous thromboembolism is 71 to 109 seconds. Blood BLOOD SPECIMEN / Unknown Venipuncture / Unknown 12/03/2024 5:20 AM CDT 12/03/2024 10:22 AM CDT us Ulises Galindo MD LAB - COAGULATION ORDERABLES Fi nal Result Performing Organization Address [facility] Co de Phone Number [address] [address], [place] [phone] * TYPE + SCREEN PANEL (12/03/2024 5:20 AM CDT) [facility] Antibody Screen NEG 11:26 AM CDT [facility] ABO Rh O POS 12/03/2024 11:26 AM T [facility] Blood Bank BLOOD SPECIMEN / Unknown Venipuncture / Unknown 12/03/2024 5:20 AM CDT 12/03/2024 10:22 AM CDT us Ulises Galindo MD LAB - BLOOD BANK ORDERABLES Fin al Result [facility] [address] [place] [address], [facility] [phone] * (ABNORMAL) CBC W AUTO DIFFERENTIAL (12/03/2024 5:20 AM CDT) Only the most recent of4 resultswithin the time period is included. WBC 5.7 4.0 - 10.7 x10E9/L 12/03/2024 10:47 AM [facility] RBC Count 4.17(L) 4.30 - 5.80 x10E12/L 12/03/2024 10:47 AM [facility] Hemoglobin 13.4 13.3 - 17.5 g/dL 12/03/2024 10:47 AM [facility] Hematocrit 39.4 38.7 - 51.1 % 12/03/2024 10:47 AM [facility] MCV 94.5 80.0 - 98.0 fL 12/03/2024 10:47 AM [facility] MCH 32.1 26.7 - 33.6 pg 12/03/2024 10:47 AM [facility] MCHC 34.0 31.7 - 36.3 g/dL 12/03/2024 10:47 AM [facility] RDW-CV 13.2 11.3 - 14.8 % 12/03/2024 10:47 AM [facility] Platelet Count 303 150 - 420 x10E9/L 12/03/2024 10:47 AM [facility] MPV 12.2(H) 7.8 - 11.4 fL 12/03/2024 10:47 AM [facility] Neutrophil % 45.9 41.0 - 74.0 % 12/03/2024 10:47 AM [facility] Lymphocyte % 40.4 17.0 - 47.0 % 12/03/2024 10:47 AM [facility] Monocyte % 8.2 3.0 - 11.0 % 12/03/2024 10:47 AM [facility] Eosinophil % 4.7 0.0 - 7.0 % 12/03/2024 10:47 AM [facility] Basophil % 0.4 0.0 - 1.6 % 12/03/2024 10:47 AM [facility] Immature Granulocytes % 0.4 0.0 - 1.0 % 12/03/2024 10:47 AM [facility] Neutrophil Absolute 2.62 1.60 - 7.50 x10E9/L 12/03/2024 10:47 AM [facility] Lymphocyte Absolute 2.30 1.00 - 4.40 x10E9/L 12/03/2024 10:47 AM [facility] Monocyte Absolute 0.47 0.15 - 1.00 x10E9/L 12/03/2024 10:47 AM [facility] Eosinophil Absolute 0.27 0.00 - 0.60 x10E9/L 12/03/2024 10:47 AM [facility] Basophil Absolute 0.02 0.00 - 0.13 x10E9/L 12/03/2024 10:47 AM [facility] Blood BLOOD SPECIMEN / Unknown Venipuncture / Unknown 12/03/2024 5:20 AM CDT 12/03/2024 10:22 AM CDT us Ulises Galindo MD LAB - HEMATOLOGY ORDERABLES Fin al Result [facility] [address] [place] [address], [facility] [phone] * (ABNORMAL) COMPREHENSIVE METABOLIC PANEL (12/03/2024 5:20 AM CDT) Only the most recent of3 resultswithin the time period is included. BUN <5(L) 7 - 26 mg/dL 12/03/2024 11:07 AM [facility] Creatinine 0.48(L) 0.71 - 1.16 mg/dL 12/03/2024 11:07 AM [facility] Sodium 141 136 - 145 mmol/L 12/03/2024 11:07 AM [facility] Potassium 3.2(L) 3.5 - 4.5 mmol/L 12/03/2024 11:07 AM [facility] Chloride 110(H) 98 - 107 mmol/L 12/03/2024 11:07 AM [facility] CO2 26 22 - 29 mmol/L 12/03/2024 11:07 AM [facility] Glucose 83 70 - 99 mg/dL 12/03/2024 11:07 AM [facility] Calcium 9.2 8.4 - 10.2 mg/dL 12/03/2024 11:07 AM [facility] Protein Total 7.1 6.0 - 8.3 g/dL 12/03/2024 11:07 AM [facility] Albumin 3.4 3.4 - 5.0 g/dL 12/03/2024 11:07 AM [facility] Bilirubin Total 0.4 0.2 - 1.2 mg/dL 12/03/2024 11:07 AM [facility] Alkaline Phosphatase 116 40 - 150 U/L 12/03/2024 11:07 AM [facility] ALT 23 5 - 55 U/L 12/03/2024 11:07 AM [facility] AST 21 5 - 34 U/L 12/03/2024 11:07 AM [facility] Anion Gap 5(L) 6 - 16 12/03/2024 11:07 AM [facility] BUN/Creatinine Ratio <10 7 - 23 12/03/2024 11:07 AM [facility] Osmolality Calculated <288 275 - 295 mOsm/kg 12/03/2024 11:07 AM [facility] Albumin/Globulin Ratio 0.9(L) 1.1 - 2.3 12/03/2024 11:07 AM [facility] eGFR by CKD-EPI >90 >=90 mL/min/1.7 3 m2 12/03/2024 11:07 AM CDT [facility] Comment:Estimated Glomerular Filtration Rate (eGFR) calculated using the CKD-EPI Creatinine Equation (2020), per the National Kidney Foundation and [place] Society of Nephrology recommendations. Blood BLOOD SPECIMEN / Unknown Venipuncture / Unknown 12/03/2024 5:20 AM CDT 12/03/2024 10:22 AM CDT us Ulises Galindo MD LAB - CHEMISTRY ORDERABLES Lulu l Result [address] [address], [facility] [phone] * TSH (12/03/2024 5:20 AM CDT) TSH 1.497 0.350 - 4.940 uIU/mL 12/03/2024 11:22 AM CDT [facility] Blood BLOOD SPECIMEN / Unknown Venipuncture / Unknown 12/03/2024 5:20 AM CDT 12/03/2024 10:22 AM CDT us Ulises Galindo MD LAB - CHEMISTRY ORDERABLES Lulu l Result Performing Organization Address City/[facility]/ZIP Co de Phone Number [address] [address], [place] [phone] * ECHO COMPLETE W CONTRAST (12/02/2024 1:09 [...] LVOT pk grad 2.528 [facility] pk iggy 79.495 cm/s [facility] CV F U PACS LVOT VTI 13.89 cm [facility] CV [facility] I PACS RV-rodriguez basal diam 2.681 cm [facility] CV [facility] PACS RVIDd 2.653 cm [facility] CV [facility] I PACS RVOT diam Doppler 2.3 cm SS M CV [facility] PACS RVOT pk iggy 64.734 cm/s [facility] CV F U PACS RVOT VTI 11.567 cm [facility] CV [facility] I PACS LA size 3.834 cm [facility] CV [facility] I PACS LA vol BP 34.054 ml [facility] I PACS RA area 12.635 cm [facility] CV [facility] PACS AV area pk iggy 2.087 cm [facility] CV [facility] PACS AV area cont VTI 2.007 cm [facility] CV [facility] PACS AV pk grad 5.661 mmHg [facility] CV FU PACS AV mn grad 2.828 mmHg [facility] CV FU JI PACS AV pk iggy 118.965 cm/s [facility] CV [facility] I PACS AV VTI 21.609 cm [facility] CV [facility] I PACS MV A pk iggy 74.128 cm/s [facility] CV F U PACS MV E pk iggy 47.388 cm/s [facility] CV F U PACS MV E' lateral iggy 6.233 cm/s SS M CV [facility] PACS MV mn grad 1.201 mmHg SSM CV FU PACS MV VTI 20.977 cm [facility] CV [facility] I PACS PV pk iggy 99.619 cm/s [facility] CV [facility] I PACS PV VTI 16.226 cm [facility] CV [facility] I PACS TAPSE 1.903 cm [facility] CV [facility] I PACS TR pk iggy 259.7 cm/s [facility] CV [facility] I PACS Ascending aorta 3.088 cm [facility] AV area index 1.065 [...] 12:35 PM Patient Status: I/P Study Site: [facility] Primary Location: [facility] Info Technical Quality: Adequate Exam Type: ECHO COMPLETE W CONTRAST Indications R07.9 - Chest pain, unspecified type Procedure(s) * A complete 2D, color Doppler, spectral Doppler, and M-Mode transthoracic echocardiogram was performed. Contrast/Agitated Saline Contrast / Saline: Definity Amount: 1.00 ml Administered By: Saeed Nesbitt Reaction to Contrast: no Staff Referring Physician: Ulises Galindo Ordering Provider: Ulises Galindo Attending Physician: Ulises Galindo Automatic Embroidery Machine Tender: Saeed Nesbitt Left Ventricle The left ventricular [...] MD on 12/02/2024 03:18 PM Procedure Note Huntington, Abimbloa J, MD - 12/02/2024 Summary * The [...] 12:35 PM Patient Status: I/P Study Site: [facility] Primary Location: [facility] EStud Info Technical Quality: Adequate Exam Type: ECHO COMPLETE W CONTRAST Indications R07.9 - Chest pain, unspecified type Procedure(s) * A complete 2D, color Doppler, spectral Doppler, and M-Modetransthoracic echocardiogram was performed. Contrast/Agitated Saline Contrast / Saline: Definity Amount: 1.00 ml Administered By: Saeed Nesbitt Reaction to Contrast: no Staff Referring Physician: Ulises Galindo Ordering Provider: Ulises Galindo Attending Physician: Ulises Galindo Automatic Embroidery Machine Tender: Saeed Nesbitt Left Ventricle The left ventricular [...] Ulises Galindo MD LAB - CHEMISTRY ORDERABLES [facility] Result Performing Organization Address City/State/[facility] Co de Phone Number [facility] [address] [place] [address], [facility] [phone] * XR Chest 1Vw Portable (12/01/2024 10:35 [...] - 10.0 ug/mL 11/29/2024 1:20 AM CDT [facility] ([facility]) Comment: INTERPRETIVE INFORMATION: Lacosamide, Serum Therapeutic Range: 1.0 - 10.0 ug/mL Toxic: >=20.0 ug/mL Lacosamide is an anticonvulsant drug indicated for adjunctive therapy for partial-onset seizures. The therapeutic range is based on serum, predose (trough) draw collection at steady-state concentration. Adverse effects may include dizziness, fatigue, nausea, vomiting, blurred vision, and tremor. Performed By: [email or web address] [address] [place] [address] Patient Service Representative: Power Milian MD, PhD CLIA Number: [id number] Blood BLOOD SPECIMEN / Unknown Lab Venipuncture / Unknown 11/27/2024 2:46 AM CDT 11/27/2024 2:56 AM CDT us Ulises Galindo MD LAB - CHEMISTRY ORDERABLES Lulu l Result [facility]) [address] [place] [address] * (ABNORMAL) LEVETIRACETAM LEVEL (11/27/2024 2:46 AM CDT) Levetiracetam 72(H) 10 - 40 ug/mL 11/28/2024 7:28 PM CDT varinode ([facility]) Comment: INTERPRETIVE INFORMATION: Keppra (Levetiracetam) Therapeutic Range: 10-40 ug/mL Toxic: Not well Established Pharmacokinetics of levetiracetam are affected by renal function. Adverse effects may include somnolence, weakness, headache and vomiting. This levetiracetam (Keppra) immunoassay uses the [employer] reagents, which has known cross-reactivity with the drug brivaracetam (Briviact) and may report inaccurate results. Patients transitioning from levetiracetam to brivaracetam or those who are using both medications should not monitor drug concentrations with the [employer] assay. These patients should be monitored using a validated chromatographic methodology that distinguishes between drugs to determine drug concentrations. Performed By: [facility] [address] [place] [address] Patient Service Representative: Power Milian MD, PhD CLIA Number: [id number] Blood BLOOD SPECIMEN / Unknown Lab Venipuncture / Unknown 11/27/2024 2:46 AM CDT 11/27/2024 2:56 AM CDT Ulises Galindo MD LAB - THERAPEUTIC DRUG MONITORI NG ORDERABLES Final Result Performing Organization Address [facility]/ZIP Co de Phone Number [facility] ([facility]) [address] [place] [address] * (ABNORMAL) VALPROIC ACID LEVEL (11/27/2024 2:46 AM CDT) [facility] Valproic Acid Total <13(L) 50 - 100 ug/mL 11/27/2024 3:22 AM CDT [facility] Blood BLOOD SPECIMEN / Unknown Lab Venipuncture / Unknown 11/27/2024 2:46 AM CDT 11/27/2024 2:56 AM CDT Ulises Galindo MD LAB - CHEMISTRY ORDERABLES Lulu l Result [address] [address], [place] [phone] * (ABNORMAL) CBC W/O DIFFERENTIAL (11/26/2024 10:59 PM CDT) [facility] WBC 6.9 4.0 - 10.7 x10E9/L 11/26/2024 11:01 PM [facility] RBC Count 3.56(L) 4.30 - 5.80 x10E12/L 11/26/2024 11:01 PM [facility] Hemoglobin 11.5(L) 13.3 - 17.5 g/dL 11/26/2024 11:01 PM [facility] Hematocrit 33.1(L) 38.7 - 51.1 % 11/26/2024 11:01 PM [facility] MCV 93.0 80.0 - 98.0 fL 11/26/2024 11:01 PM [facility] MCH 32.3 26.7 - 33.6 pg 11/26/2024 11:01 PM [facility] MCHC 34.7 31.7 - 36.3 g/dL 11/26/2024 11:01 PM [facility] RDW-CV 13.1 11.3 - 14.8 % 11/26/2024 11:01 PM [facility] Platelet Count 251 150 - 420 x10E9/L 11/26/2024 11:01 PM [facility] MPV 11.8(H) 7.8 - 11.4 fL 11/26/2024 11:01 PM [facility] Blood BLOOD SPECIMEN / Unknown Venipuncture / Unknown 11/26/2024 10:59 PM CDT 11/26/2024 10:59 PM CDT us Ulises Galindo MD LAB - HEMATOLOGY ORDERABLES Fin al Result Performing Organization Address City/State/[facility] Co de Phone Number [facility] [address] [place] [address], [facility] [phone] * CARDIAC EKG ORDER (10/18/2024 11:02 AM CDT) Narrative 10/18/2024 11:02 AM CDT Ordered by an unspecified provider. us Scanned Document CARDIAC SERVICES ORDERABLES Fin al Result * URINALYSIS REFLEX MICROSCOPIC REFLEX CULTURE (10/18/2024 6:28 AM CDT) Color UA Yellow Yellow, Straw 10/18/2024 6:49 AM CDT [facility] Clarity UA Clear Clear 10/18/2024 6:49 AM CDT [facility] Glucose UA Normal Normal 10/18/2024 6:49 AM CDT [facility] Bilirubin UA Negative Negative 10/18/2024 6:49 AM CDT [facility] Ketone UA Negative Negative 10/18/2024 6:49 AM CDT [facility] Specific [place] UA 1.022 1.005 - 1.030 10/18/2024 6:49 AM CDT [facility] Blood UA Negative Negative 10/18/2024 6:49 AM CDT [facility] pH UA 8.0 5.0 - 8.0 pH 10/18/2024 6:49 AM T [facility] Protein UA Negative Negative 10/18/2024 6:49 AM CDT [facility] Urobilinogen UA Normal Normal mg/dL 10/18/2024 6:49 AM CDT [facility] Nitrite UA Negative Negative 10/18/2024 6:49 AM T [facility] Leukocyte Esterase UA Negative Negative 10/18/2024 6:49 AM T [facility] Reflex Status Culture not indicated 10/18/2024 6:49 AM [facility] Urine URINE SPECIMEN OBTAINED BY CLEAN CATCH PROCEDURE / Unknown Collection / Unknown 10/18/2024 6:28 AM CDT 10/18/2024 6:32 AM CDT us Caio Elder MD LAB - URINALYSIS ORDERABLES nal Result Performing Organization Address [facility] Co de Phone Number [facility] [address] [place] [phone], [facility] [phone] * CT Abdomen Pelvis W Contrast (10/17/2024 [...] diaphragm. Report dictated by Meeta Leblanc MD (associate vice president). Nj Thomason MD have personally reviewed [...] diaphragm. Report dictated by Meeta Leblanc MD (associate vice president). Nj Thomason MD have personally reviewed and interpreted this examination/study. > Interpreting Provider: Nj Escobar MD on 10/18/2024 11:44 AM Caio Elder MD DIAGNOSTIC IMAGING ORDERABLES Final Result * TROPONIN-I HIGH SENSITIVE BASELINE + 1HR (10/17/2024 4:08 PM CDT) Troponin I High Sensitive 4 <=35 ng/L 10/17/2024 5:01 PM CDT [facility] Blood BLOOD SPECIMEN / Unknown Venipuncture / Unknown 10/17/2024 4:08 PM CDT 10/17/2024 4:17 PM CDT Caio Elder MD LAB - CHEMISTRY ORDERABLES Fin al Result [address] [address], [facility] [phone] * LIPASE BLOOD (10/17/2024 4:08 PM CDT) Pathologist [facility] Lipase 23 8 - 78 U/L 10/17/2024 5:14 PM CDT [facility] Blood BLOOD SPECIMEN / Unknown Venipuncture / Unknown 10/17/2024 4:08 PM CDT 10/17/2024 4:17 PM CDT Narrative [facility] - 10/17/2024 5:14 PM CDT Lipase results from the [employer] Al[employer] analyzer may not be comparable with other methodologies. us Caio Elder MD LAB - CHEMISTRY ORDERABLES Fin al Result [address] [address], [place] [phone] * LACTIC ACID BLOOD (10/17/2024 4:08 PM CDT) [facility] Lactic Acid-Stat 1.8 <=2.0 mmol/L 10/17/2024 4:47 PM CDT [facility] Blood BLOOD SPECIMEN / Unknown Venipuncture / Unknown 10/17/2024 4:08 PM CDT 10/17/2024 4:17 PM CDT us Caio Elder MD LAB - CHEMISTRY ORDERABLES Fin al Result Performing Organization Address City/[facility]/ZIP Co de Phone Number [address] [address], [place] [phone] * HEPATITIS C AB SCREEN RFLX NAAT QUANT (09/01/2022 2:05 AM CDT) [facility] Hepatitis C Antibody Non-react phan Non-reac tive 09/01/2022 3:09 AM CDT [facility] Comment:Hepatitis C Antibody screen indicates no [...] ORDERABLES Fin al Result Performing Organization Address [facility]/ZIP Co de Phone Number [facility] [address] [place] [address], [place] [phone] * HIV-1 HIV-2 ANTIBODY + HIV P24 AG PANEL (09/01/2022 2:05 AM CDT) HIV Antigen/Antibod y 1 & 2 Non-reacti ve Non-react phan 09/01/2022 3:09 AM CDT [facility] Comment:No Laboratory eviden ce of HIV infection. 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 Source: [facility]. 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 John Seipel Infection Prevention 09/18/2022 MDRO Hx 09/18/2022 11/27/2024 MRSA Hx 06/11/2023 11/27/2024 Insurance [facility] [address] Advance Directives Documents on File Type Date Recorded Patient Bacon De Rinder Expl anation Adv Directive/Living Will/POA 07/19/2019 4:10 [...] 12:11 AM 06/10/2024 2:02 AM Care Teams Mixer Operator Vacuum Pan Salt Relationship Specialty Start Date End Date Jack Arroyo MD [address] [place] [address] PCP - General 10/17/24 Elizabeth Sullivan, RN Culturist 10/14/17
--- OUTSIDE RECORDS SUMMARY | 2024-12-22 21:36 | XMS_ITS | Referral Summary ---
Author Organization [facility] Address [address] [place] [address] Care Team Providers Care Assembler Convertible Top Name Role Phone Marielena Smallwood MD Primary [...] 06/28/2024 Assessment & Plan (06/28/2024 11:42 AM MECHANIC GENERAL OPERATIONAL TEST): Now back on full TF's sugars running mildly high. Monitor with q4 accuchecks and SSI. Hypophosphatemia 06/27/2024 Assessment & Plan (06/28/2024 11:44 AM MECHANIC GENERAL OPERATIONAL TEST): <0.7 ? 2/2 refeeding syndrome. Started on neutraphos 2pkg QID 06/26. Still Phos<0.7 06/27. Tx with IV NaPhos 30mmoles and cont per tube replacement and monitor closely. -06/28: Phos=3.3, reduce nuetraphos to 1 PKG BID and monitor History of DVT (deep vein thrombosis) 06/26/2024 Assessment & Plan (06/26/2024 1:32 PM MECHANIC GENERAL OPERATIONAL TEST): -On anticoagulation with Eliquis 5 mg po BID for hx of DVT -per chart review hx of Left Subclavian vein DVT diagnosed 08/01/23 H/O: GI bleed 06/25/2024 Assessment & Plan (06/26/2024 1:32 PM MECHANIC GENERAL OPERATIONAL TEST): - recent admission at [facility] ( 06-07-24 [...] 06/25/2024 Assessment & Plan (06/26/2024 1:36 PM MECHANIC GENERAL OPERATIONAL TEST): Tracheostomy dependence, has a Shiley #4 cuffed. Pt followed at [facility], per notes trach in place for pulmonary toilet due to his copious secretions and ongoing aspiration of his secretions. -needing frequent suctioning -sats stable on 28% FIO2 by HHTC -Was getting VEST at [facility] Low grade fever 06/20/2024 Assessment & Plan (06/26/2024 1:34 PM MECHANIC GENERAL OPERATIONAL TEST): Low-grade fever and tachycardia, softer BP after [...] 06/17/2024 Assessment & Plan (06/28/2024 11:43 AM MECHANIC GENERAL OPERATIONAL TEST): -patient at admission with a G tube, was getting continous tube feedings at [facility] and not tolerating, -was changed [...] tube fell off and pt had 18 Macedonian G tube placed at [facility] on 04/21/24 (records on care everywhere)and after that he has not tolerated well tube feedings per discussion with his sister Ms Hilliard,Adriane [phone] POA - consulted IR 06-20-24 for conversion [...] goal 06/25, adjust FWF per hydration status, steam locomotive firer/fireman to follow up -On full TF's-osmolite 1.5. Phos repleted. Copious oral secretions 06/13/2024 Assessment & Plan (06/26/2024 1:29 PM MECHANIC GENERAL OPERATIONAL TEST): Patient on chronic glycopyrrolate due to secretions, held at admission 2/ to potential for constipation with plan to add back when he's had a bowel movements -resume on 06-19- hold on 06-20 due to somnolence. Suction PRN - restart glycopyrrolate 1mg BID 06/26 and monitor Abdominal pain 06/12/2024 Assessment & Plan (06/26/2024 1:23 PM MECHANIC GENERAL OPERATIONAL TEST): -p/w abdominal distention from SNF to ED on 06-12 ,reported biliary emesis per custodial (approximately 300 cc) , not associated fevers or change in bowel habits. Feeding tube placed to gravity drainage in ED H&P notes regular bowel movements. CT scan on 06-12 in ED with stool in the rectum and sigmoid. Mullan likely constipation contributing to the patient's abdominal [...] 06/12/2024 Assessment & Plan (06/26/2024 12:08 AM MECHANIC GENERAL OPERATIONAL TEST): Complicated by left LE AKA. History of CVA (cerebrovascular accident) 2020 Assessment & Plan (06/26/2024 1:32 PM MECHANIC GENERAL OPERATIONAL TEST): - hx of RT parietal CVA- hx of dementia Cont asa and statin Essential hypertension 12/11/2020 Assessment & Plan (06/26/2024 1:30 PM MECHANIC GENERAL OPERATIONAL TEST): - on metoprolol and norvasc, held with soft BP 06-19 - resume metoprolol 06-21 -resume amlodipine 06-22 - Monitor Hyperlipidemia 12/11/2020 Assessment & Plan (06/12/2024 3:47 PM MECHANIC GENERAL OPERATIONAL TEST): - Continue home statin Seizure 12/10/2020 Assessment & Plan (06/26/2024 1:36 PM MECHANIC GENERAL OPERATIONAL TEST): History of seizure disorder secondary to traumatic brain injury. Currently on valproate, Vimpat, Keppra and Cobazam - Continue home medication, valproate level low at admit 48 on 06-12, 48 on 06-13, Valproic acid level 76 06-19 prior to dose, lacosamide level 1.4 on 06/12, 9.6 on 06-19 [address] Neurology at [facility] Cognitive communication deficit 08/25/2020 Cerebrovascular accident [...] Smokeless Tobacco: Current Tobacco Cessation:Counseling Given: Yes [employer] Utilities Answer Date Recorded In the past 12 months has [employer], oil, or water [employer] threatened to shut off services in your [...] week 06/18/2024 How often do you attend [facility] or anabaptism services? Never 06/18/2024 Do you belong to [...] any time in the past 12 m [facility], were you homeless or living in a fdc (including now)? No 06/18/2024 Personal Safety Answer Date Recorded Have you ever been in or are you currently in a harmful physical or emotional relationship or is someone making you feel afraid or unsafe? Denies 07/08/2024 Sex and Gender Information Value Date Recorded Sex Assigned at Not on file Legal Sex Male 6:11 AM MECHANIC GENERAL OPERATIONAL TEST Gender Identity Not on file Sexual Orientation Not on file Last Filed Vital Signs Vital Sign Reading Time Taken Comments Blood Pressure 145/83 07/09/2024 6:00 AM [employer]CH[employer]IC GENERAL OPERATIONAL TEST Pulse 91 07/09/2024 6:00 AM MECH[employer]IC GENERAL OPERATIONAL TEST Temperature 36.5 C (97.7 F) 07/09/2024 6:31 AM [employer]CH[employer]IC GENERAL OPERATIONAL TEST Respiratory Rate 10 07/09/2024 6:00 AM MECHANIC GENERAL OPERATIONAL TEST Oxygen Saturation 100% 07/09/2024 6:00 AM MECHANIC GENERAL OPERATIONAL TEST Inhaled Oxygen Concentration - - Weight 79.8 kg (176 lb) 07/09/2024 2:16 AM MECH[employer]IC GENERAL OPERATIONAL TEST Height 182.9 cm (6') 07/09/2024 2:16 AM MECHANIC GENERAL OPERATIONAL TEST Body Mass Index 23.87 07/09/2024 2:16 AM MECHANIC GENERAL OPERATIONAL TEST Plan of Treatment Not on file Procedures Procedure Name Priority Date/Time Associated Diagnosis Comments EGFR STAT 07/08/2024 8:56 PM [employer]CH[employer]IC GENERAL OPERATIONAL TEST HEPATITIS C ANTIBODY Routine 06/26/2024 3:21 PM [employer] GENERAL OPERATIONAL TEST HEMOGLOBIN A1C Routine 06/12/2024 3:30 PM [employer]CH[employer]IC GENERAL OPERATIONAL TEST TNI WITH LIPID PANEL Routine 08/24/2017 4:57 PM CDT from Last 3 Months or Most Recently Relevant to Health Maintenance Results * eGFR (07/08/2024 8:56 PM MECHANIC GENERAL OPERATIONAL TEST) eGFR >90 >=60 mL/min/1. 73 m2 Comment: [...] last reviewed 2021. Blood 07/08/2024 8:56 PM MECHANIC GENERAL OPERATIONAL TEST 07/08/2024 9:26 PM MECH[employer]IC GENERAL OPERATIONAL TEST us Naa Tam MD LAB BLOOD ORDERABLES Fin al Result Performing Organization Address [facility] Co de Phone Number [facility] [place] [address] * Hepatitis C antibody Blood (06/26/2024 3:21 PM MECHANIC GENERAL OPERATIONAL TEST) Hep C Ab Nonreactive Nonreactive Comment:Antibodies to HCV no t detected. Does NOT exclude the possibility of recent exposure to HCV. Current interpretive data was last revised on 22 Blood 06/26/2024 3:21 PM MECHANIC GENERAL OPERATIONAL TEST 06/26/2024 3:41 PM MECHANIC GENERAL OPERATIONAL TEST us Kami Dupont MD LAB MICROBIOLOGY - GENERA L ORDERABLES Final Result Performing Organization Address [facility] Co de Phone Number [facility] [place] [address] * Hemoglobin A1c (06/12/2024 3:30 PM MECHANIC GENERAL OPERATIONAL TEST) Hgb A1C 4.9 4.0 - 5.6 % Estimated Average Glucose 94 mg/dL [facility] Comment: The ADA recommends reporting an estimated Average Glucose (eAG) with all Hemoglobin A1c results using the equation derived from a study of 507 normal and diabetic adults. Minority populations were underrepresented and children were not included. (Diabetes Care 2020; 43(S1): S66-S76). The eAG is not equivalent to a fasting glucose. Blood 06/12/2024 3:30 PM MECHANIC GENERAL OPERATIONAL TEST 06/12/2024 5:10 PM MECHANIC GENERAL OPERATIONAL TEST us Ryan Jauregui MD LAB BLOOD ORDERABLES Final Resul t [facility]ER[facility] [place] [address] * TNI with LIPID PANEL (08/24/2017 4:57 PM CDT) Troponin I < 0.300 0.000 - 0.300 ng/mL 08/24/2017 5:29 PM CDT [facility][NOTE 3] HISTORICAL RESULTS Comment: Reference using JERRICA Chemiluminescence Negative: Repeat in 4-6 hours as indicated. Triglycerides 34 0 - 199 mg/dL 08/24/2017 5:30 PM T [facility] HISTORICAL RESULTS Comment:12 hr pc highly avani mmended for Triglyceride Cholesterol 129 0 - 199 mg/dL 08/24/2017 5:30 PM T [facility] HISTORICAL RESULTS Comment: Borderline: 200-239 High Risk: >239 HDL Cholesterol 71 mg/dL 8 5:30 PM T [facility][NOTE 3] HISTORICAL RESULTS Comment: Reference Ranges: Males: >=40 mg/dL Females: >=50 mg/dL LDL Cholesterol, Calc 51 0 - 130 mg/dL 08/24/2017 5:30 PM T [facility][NOTE 3] HISTORICAL RESULTS Comment:High Risk > 159 mg/d L Cholesterol/HDL Ratio 1.8 08/24/2017 5:30 PM T [facility][NOTE 3] HISTORICAL RESULTS Comment: Cholesterol / HDL Ratio 3.5:1 or less is desirable. Cholesterol / HDL Ratio greater than 5:1 is considered higher risk for developing heart disease. 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 Source: [facility]. 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 Source: [facility]. 09/18/22 Acinetobacter os 09/18/2022 Insurance [facility] [place] [address] [place] [address] [address] [facility] [place] Advance Directives For more information, please contact: [phone] Documents on File Type Date Recorded Patient Client Technologies Analyst Expl anation ADVANCE DIRECTIVE 10/08/2012 12:00 AM SANDRA R OF GARMENT INSPECTOR FINANCIAL/MEDICAL * Full Code (Latest Code Status on File) Date Activated Date Inactivated Comments 06/12/2024 3:22 PM 06/28/2024 9:30 PM * Full Code Date Activated Date Inactivated Comments 12/10/2020 9:05 AM 12/13/2020 10:44 PM Care Teams Assembler Convertible Top Relationship Specialty Start Date End Date Marielena Smallwood MD [address] [facility] [place] [address] PCP - General Family Practice 07/08/24
--- OUTSIDE RECORDS SUMMARY | 2024-12-22 21:36 | XMS_ITS | Clinical Summary ---
Author Organization [facility] Address [address] [place] [address] Care Team Providers Care Sport Shoe Spike Assembler Name Role Phone Marielena Smallwood MD Primary [...] 06/28/2024 Assessment & Plan (06/28/2024 11:42 AM VISUAL COMMUNICATIONS INSTRUCTOR): Now back on full TF's sugars running mildly high. Monitor with q4 accuchecks and SSI. Hypophosphatemia 06/27/2024 Assessment & Plan (06/28/2024 11:44 AM VISUAL COMMUNICATIONS INSTRUCTOR): <0.7 ? 2/2 refeeding syndrome. Started on neutraphos 2pkg QID 06/26. Still Phos<0.7 06/27. Tx with IV NaPhos 30mmoles and cont per tube replacement and monitor closely. -06/28: Phos=3.3, reduce nuetraphos to 1 PKG BID and monitor History of DVT (deep vein thrombosis) 06/26/2024 Assessment & Plan (06/26/2024 1:32 PM VISUAL COMMUNICATIONS INSTRUCTOR): -On anticoagulation with Eliquis 5 mg po BID for hx of DVT -per chart review hx of Left Subclavian vein DVT diagnosed 08/01/23 H/O: GI bleed 06/25/2024 Assessment & Plan (06/26/2024 1:32 PM VISUAL COMMUNICATIONS INSTRUCTOR): - recent admission at [facility] ( 06-07-24 [...] 06/25/2024 Assessment & Plan (06/26/2024 1:36 PM VISUAL COMMUNICATIONS INSTRUCTOR): Tracheostomy dependence, has a Shiley #4 cuffed. Pt followed at [facility], per notes trach in place for pulmonary toilet due to his copious secretions and ongoing aspiration of his secretions. -needing frequent suctioning -sats stable on 28% FIO2 by HHTC -Was getting VEST at [facility] Low grade fever 06/20/2024 Assessment & Plan (06/26/2024 1:34 PM VISUAL COMMUNICATIONS INSTRUCTOR): Low-grade fever and tachycardia, softer BP after [...] 06/17/2024 Assessment & Plan (06/28/2024 11:43 AM VISUAL COMMUNICATIONS INSTRUCTOR): -patient at admission with a G tube, was getting continous tube feedings at [facility] and not tolerating, -was changed [...] tube fell off and pt had 18 [place] G tube placed at [facility] ED on 04/21/24 (records on care everywhere)and after that he has not tolerated well tube feedings per discussion with his sister Ms Hilliard,Adriane [phone] POA - consulted IR 06-20-24 for conversion [...] goal 06/25, adjust FWF per hydration status, driver messenger to follow up -On full TF's-osmolite 1.5. Phos repleted. Copious oral secretions 06/13/2024 Assessment & Plan (06/26/2024 1:29 PM VISUAL COMMUNICATIONS INSTRUCTOR): Patient on chronic glycopyrrolate due to secretions, held at admission 2/ to potential for constipation with plan to add back when he's had a bowel movements -resume on 06-19- hold on 06-20 due to somnolence. Suction PRN - restart glycopyrrolate 1mg BID 06/26 and monitor Abdominal pain 06/12/2024 Assessment & Plan (06/26/2024 1:23 PM VISUAL COMMUNICATIONS INSTRUCTOR): -p/w abdominal distention from SNF to ED on 06-12 ,reported biliary emesis per snf (approximately 300 cc) , not associated fevers or change in bowel habits. Feeding tube placed to gravity drainage in ED H&P notes regular bowel movements. CT scan on 06-12 in ED with stool in the rectum and sigmoid. [place] likely constipation contributing to the patient's abdominal [...] 06/12/2024 Assessment & Plan (06/26/2024 12:08 AM VISUAL COMMUNICATIONS INSTRUCTOR): Complicated by left LE AKA. History of CVA (cerebrovascular accident) 2020 Assessment & Plan (06/26/2024 1:32 PM VISUAL COMMUNICATIONS INSTRUCTOR): - hx of RT parietal CVA- hx of dementia Cont asa and statin Essential hypertension 12/11/2020 Assessment & Plan (06/26/2024 1:30 PM VISUAL COMMUNICATIONS INSTRUCTOR): - on metoprolol and norvasc, held with soft BP 06-19 - resume metoprolol 06-21 -resume amlodipine 06-22 - Monitor Hyperlipidemia 12/11/2020 Assessment & Plan (06/12/2024 3:47 PM VISUAL COMMUNICATIONS INSTRUCTOR): - Continue home statin Seizure 12/10/2020 Assessment & Plan (06/26/2024 1:36 PM VISUAL COMMUNICATIONS INSTRUCTOR): History of seizure disorder secondary to traumatic brain injury. Currently on valproate, Vimpat, Keppra and Cobazam - Continue home medication, valproate level low at admit 48 on 06-12, 48 on 06-13, Valproic acid level 76 06-19 prior to dose, lacosamide level 1.4 on 06/12, 9.6 on 06-19 Followed by Neurology at [facility] Cognitive communication deficit 08/25/2020 Cerebrovascular accident 06/13/2019 [...] h recurrent seizures (HCC) Followed up at [facility] ([facility]) Degenerative cervical spinal stenosis Family History Medical History Relation Name Comments Coronary artery disease Father Stroke Father Hypertension Mother Relation Name Status Comments Father Mother Social History Tobacco Use Types Packs/Day Years Used Date Smoking Tobacco: Former Cigarettes Smokeless Tobacco: Current Tobacco Cessation:Counseling Given: Yes [facility] Utilities Answer Date Recorded In [...] often do you attend chur ch or sabianism services? Never 06/18/2024 Do you belong to any clubs o r organizations such as mormon groups, unions, fraternal or athletic groups, or [...] any time in the past [address] [facility], were you homeless or living in a half-way (including now)? No 06/18/2024 Personal Safety Answer Date Recorded Have you ever been in or are you currently in a harmful physical or emotional relationship or is someone making you feel afraid or unsafe? Denies 07/08/2024 Sex and Gender Information Value Date Recorded Sex Assigned at Not on file Legal Sex Male 6:11 AM VISUAL COMMUNICATIONS INSTRUCTOR Gender Identity Not on file Sexual Orientation Not on file Obstetrics History Last Filed Vital Signs Vital Sign Reading Time Taken Comments Blood Pressure 145/83 07/09/2024 6:00 AM VISUAL COMMUNICATIONS INSTRUCTOR Pulse 91 07/09/2024 6:00 AM VISUAL COMMUNICATIONS INSTRUCTOR Temperature 36.5 C (97.7 F) 07/09/2024 6:31 AM VISUAL COMMUNICATIONS INSTRUCTOR Respiratory Rate 10 07/09/2024 6:00 AM VISUAL COMMUNICATIONS INSTRUCTOR Oxygen Saturation 100% 07/09/2024 6:00 AM VISUAL COMMUNICATIONS INSTRUCTOR Inhaled Oxygen Concentration - - Weight 79.8 kg (176 lb) 07/09/2024 2:16 AM VISUAL COMMUNICATIONS INSTRUCTOR Height 182.9 cm (6') 07/09/2024 2:16 AM VISUAL COMMUNICATIONS INSTRUCTOR Body Mass Index 23.87 07/09/2024 2:16 AM VISUAL COMMUNICATIONS INSTRUCTOR Plan of Treatment Health Maintenance Due Date [...] Diagnosis Comments EGFR STAT 07/08/2024 8:56 PM VISUAL COMMUNICATIONS INSTRUCTOR HEPATITIS C ANTIBODY Routine 06/26/2024 3:21 PM VISUAL COMMUNICATIONS INSTRUCTOR HEMOGLOBIN A1C Routine 06/12/2024 3:30 PM VISUAL COMMUNICATIONS INSTRUCTOR TNI WITH LIPID PANEL Routine 08/24/2017 4:57 PM CDT from Last 3 Months or Most Recently Relevant to Health Maintenance Results * eGFR (07/08/2024 8:56 PM VISUAL COMMUNICATIONS INSTRUCTOR) eGFR >90 >=60 mL/min/1. 73 m2 Comment: [...] last reviewed 2021. Blood 07/08/2024 8:56 PM VISUAL COMMUNICATIONS INSTRUCTOR 07/08/2024 9:26 PM VISUAL COMMUNICATIONS INSTRUCTOR Naa Tam MD LAB BLOOD ORDERABLES Fin al Result Performing Organization Address [facility] de Phone Number [facility] Department [place] [address] * Hepatitis C antibody Blood (06/26/2024 3:21 PM VISUAL COMMUNICATIONS INSTRUCTOR) [facility] Hep C Ab Nonreactive Nonreactive Comment:Antibodies to HCV no t detected. Does NOT exclude the possibility of recent exposure to HCV. Current interpretive data was last revised on 22 Blood 06/26/2024 3:21 PM VISUAL COMMUNICATIONS INSTRUCTOR 06/26/2024 3:41 PM VISUAL COMMUNICATIONS INSTRUCTOR Result [facility] Kami Dupont MD LAB MICROBIOLOGY - GENERA L ORDERABLES Final Result Performing Organization Address [facility] de Phone Number [facility] Department [place] [address] * Hemoglobin A1c (06/12/2024 3:30 PM VISUAL COMMUNICATIONS INSTRUCTOR) Pathologist [facility] Hgb A1C 4.9 4.0 - 5.6 % Estimated Average Glucose 94 mg/dL [facility] Comment: The ADA recommends reporting an estimated Average Glucose (eAG) with all Hemoglobin A1c results using the equation derived from a study of 507 normal and diabetic adults. Minority populations were underrepresented and children were not included. (Diabetes Care 2020; 43(S1): S66-S76). The eAG is not equivalent to a fasting glucose. Blood 06/12/2024 3:30 PM VISUAL COMMUNICATIONS INSTRUCTOR 06/12/2024 5:10 PM VISUAL COMMUNICATIONS INSTRUCTOR Ryan Jauregui MD LAB BLOOD ORDERABLES Final Resul t CAMERON Simpson [facility] Department [place] [address] * TNI with LIPID PANEL (08/24/2017 4:57 PM CDT) Troponin I < 0.300 0.000 - 0.300 ng/mL 08/24/2017 5:29 PM CDT [facility] [employer] HISTORICAL RESULTS Comment: Reference using JERRICA Chemiluminescence Negative: Repeat in 4-6 hours as indicated. Triglycerides 34 0 - 199 mg/dL 08/24/2017 5:30 PM T [facility] [employer] HISTORICAL RESULTS Comment:12 hr pc highly avani mmended for Triglyceride Cholesterol 129 0 - 199 mg/dL 08/24/2017 5:30 PM T [facility] [employer] HISTORICAL RESULTS Comment: Borderline: 200-239 High Risk: >239 HDL Cholesterol 71 mg/dL 8 5:[address] [facility] [employer] HISTORICAL RESULTS Comment: Reference Ranges: Males: >=40 mg/dL Females: >=50 mg/dL LDL Cholesterol, Calc 51 0 - 130 mg/dL 08/24/2017 5:30 PM T [facility] [employer] HISTORICAL RESULTS Comment:High Risk > 159 mg/d L Cholesterol/HDL Ratio 1.8 08/24/2017 5:30 PM T [facility] [employer] HISTORICAL RESULTS Comment: Cholesterol / HDL Ratio 3.5:1 or less is desirable. Cholesterol / HDL Ratio greater than 5:1 is considered higher risk for developing heart disease. 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 Source: [facility]. 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 Source: [facility]. 09/18/22 Acinetobacter os 09/18/2022 Insurance [facility] [place] [address] [place] [facility] [place] Advance Directives For more information, please contact: [phone] Documents on File Type Date Recorded Patient Software Deployment Engineer Expl anation ADVANCE DIRECTIVE 10/08/2012 12:00 AM SANDRA R OF [employer] * Full Code (Latest Code Status on File) Date Activated Date Inactivated Comments 06/12/2024 3:22 PM 06/28/2024 9:30 PM * Full Code Date Activated Date Inactivated Comments 12/10/2020 9:05 AM 12/13/2020 10:44 PM Care Teams Sport Shoe Spike Assembler Relationship Specialty Start Date End Date Marielena Smallwood MD [facility] [place] [address] PCP - General Family Practice 07/08/24
--- OUTSIDE RECORDS SUMMARY | 2024-12-22 21:36 | XMS_ITS | Encounter Summary ---
Author Organization [facility] Address [address] [place] [address] Care Team Providers Care Rn Family Name Role Phone Elizabeth Sullivan RN Unavailable [phone] Jack Arroyo MD Primary Care Provider Rosie marsh Reason for Visit * Reason Onset Date Comments Appointment 11/05/2024 Encounter Details Date Type Department Care Team (Late st Contact Info) Description 11/05/2024 Telephone [facility] - Centralized Scheduling [address] [place] [address] Alden Hurtado MD [address] [place] [address] Appointment Social History Tobacco Use Types Packs/Day [...] and heating? Not hard at all 08/06/2024 [facility] [place] [facility] [...] time in the past 12 m [facility], were you homeless or living in a prison (including now)? No 08/06/2024 Sex and Gender Information Value Date Recorded Sex Assigned at Not on file Legal Sex Male 5:07 PM MANNEQUIN MOUNTER Gender Identity Not on file Sexual Orientation [...] Office Visit [facility] - GI [address] [place] [phone] 03/06/2025 10:00 AM CDT Office Visit [facility] - Neurology [address] [place] [phone] Saloni King, RHYTHMIC GYMNASTICS COACH-CLIENT SERVICES ASSISTANT [address] [place] [id number] documented as of this encounter Visit Diagnoses [...] within [facility]. 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 John Seipel Infection Prevention 09/18/2022 MDRO Hx 09/18/2022 11/27/2024 MRSA 06/11/2023 06/11/2023 11/27/2024 7:23 AM CDT MRSA Hx 06/11/2023 11/27/2024 documented as of this encounter Care Teams Rn Family Relationship Specialty Start Date End Date Jack Arroyo MD [address] [place] [address] PCP - General 10/17/24 Elizabeth Sullivan, RN General Internal Medicine Physician 10/14/17 documented as of this encounter
--- OUTSIDE RECORDS SUMMARY | 2024-12-22 21:36 | XMS_ITS | Data Portability ---
Demographics Address [address] [place] [address] Home Phone Mobile Phone Email Address Preferred Language en Marital Status Never Bahai Affiliation Unknown Race Black or Irma rican Ethnic Group Not or Lati no Author Organization [facility] Address [address] [place] [address] Assessment No assessment recorded. Plan of Treatment Reminders Order Date Submit Date Provider Last Modified By Organization Details Last Modified Time Details Appointments None recorded. Lab None recorded. Referral None recorded. Procedures None recorded. Surgeries None recorded. Imaging None recorded. Medication Orders ibuprofen 800 mg tablet 2015 016 [facility], [address] [place] [address], [id number], 6 18:35:08 Prozac 20 mg capsule 2014 015 [facility], [address] [place] [address], [id number], 5 16:10:15 tramadol 50 mg tablet 2014 015 [facility] [facility], [address] [place] [address], [id number], 5 12:13:56 Flomax 0.4 mg capsule 2014 015 [employer] [address] [place] [address], [id number], 5 16:10:16 Ambien 10 mg tablet 2014 015 [place] [employer], [facility], [address] [place] [address], [id number], 5 10:37:28 Patient TargetsNo targets recorded. Patient Instructions Encounter Date Encounter Id Patient Instructions Last Modified By Organization Details Last Modified Time 06/10/2014 [id number] stroke: care instructions Not available 06/21/2014 17:33:19 insomnia: care instructions Not available 06/21/2014 17:33:19 epilepsy: care instructions Not available 06/21/2014 17:33:19 09/18/2014 [id number] epilepsy: care instructions dsalmond Not available 09/18/2014 17:05:10 back care and preventing injuries: care instructions dsalmond Not available 09/18/2014 17:05:10 04/16/2015 [id number] epilepsy: care instructions campadu Not available 04/16/2015 16:05:30 06/12/2015 [id number] stroke: care instructions dsalmond Not available 06/13/2015 12:21:31 epilepsy: care instructions dsalmond Not available 06/13/2015 12:21:31 learning about high blood pressure dsalmond Not available 06/13/2015 12:21:31 Reason for Referral None Reported. Results Created Date Observation Date Name Description Value Unit Range Abnormal Flag Note LastModifiedBy Organization Detail LastModifiedTime 06/12/19 16 06/12/2015 CBC w/ auto diff WBC 5.9 K/uL 3.4-10 .8 Not Available [facility] (Lab) [address] [place], [address], 06/12/2015 19:52:35 06/12/19 16 06/12/2015 CBC w/ auto diff red blood count 4.6 M/uL 4.5-6. 3 Not Available [facility] ([facility]) [address], [place], [address], 06/12/2015 19:52:35 06/12/19 16 06/12/2015 CBC w/ auto diff hemoglobin 14.7 g/dL 13.5-1 7.5 Not Available [facility] (Lab) [address] [place], [address], 06/12/2015 19:52:35 06/12/19 16 06/12/2015 CBC w/ auto diff hematocrit 44.5 % 40.0-5 2.0 Not Available [facility] (Lab) [address] [place], [address], 06/12/2015 19:52:35 06/12/19 16 06/12/2015 CBC w/ auto diff MCV 97 fL 80-95 high Not Available [facility] (Lab) [address] [place], [address], 06/12/2015 19:52:35 06/12/19 16 06/12/2015 CBC w/ auto diff MCH 32 pg 27-32 Not Available [facility] (Lab) [address] [place], [address], 06/12/2015 19:52:35 06/12/19 16 06/12/2015 CBC w/ auto diff MCHC 33 g/dL 32-36 Not Available [facility] (Lab) [address] [place], [address], 06/12/2015 19:52:35 06/12/19 16 06/12/2015 CBC w/ auto diff platelets 219 K/uL 155-37 9 Not Available [facility] (Lab) [address] [place], [address], 06/12/2015 19:52:35 06/12/19 16 06/12/2015 CBC w/ auto diff RDW 11.6 % 11.5-1 4.5 Not Available [facility] (Lab) [address] [place], [address], 06/12/2015 19:52:35 06/12/19 16 06/12/2015 CBC w/ auto diff MPV 11.1 fL 8.9-12 .7 Not Available [facility] ([facility]) [address] [place], [address], 06/12/2015 19:52:35 06/12/19 16 06/12/2015 CBC w/ auto diff neutrophils absolute 2.5 K/uL 1.4-7. 0 Not Available [facility] ([facility]) [address] [facility], [place], [address], 06/12/2015 19:52:35 06/12/19 16 06/12/2015 CBC w/ auto diff lymphs (absolute) 2.6 K/uL 0.7-3. 1 Not Available [facility] ([facility]) [address] [facility], [place], [address], 06/12/2015 19:52:35 06/12/19 16 06/12/2015 CBC w/ auto diff monocytes (absolute) 0.5 K/uL 0.1-0. 9 Not Available [facility] ([facility]) [address] [facility], [place], [address], 06/12/2015 19:52:35 06/12/19 16 06/12/2015 CBC w/ auto diff eos (absolute) 0.2 K/uL 0.0-0. 4 Not Available [facility] ([facility]) [address] [place], [address], 06/12/2015 19:52:35 06/12/19 16 06/12/2015 CBC w/ auto diff baso (absolute) 0.0 K/uL 0.1-0. 3 low Not Available [facility] ([facility]) [address] [facility], [place], [address], 06/12/2015 19:52:35 06/12/19 16 06/12/2015 CBC w/ auto diff neut % 43.1 % 40.0-7 4.0 Not Available [facility] (Lab) [address] [place], [address], 06/12/2015 19:52:35 06/12/19 16 06/12/2015 CBC w/ auto diff lymphs % 44.6 % 14.0-4 6.0 Not Available [facility] (Lab) [address] [place], [address], 06/12/2015 19:52:35 06/12/19 16 06/12/2015 CBC w/ auto diff mono % 8.7 % 4.0-12 .0 Not Available [facility]) [address], [place], [address], 06/12/2015 19:52:35 06/12/19 16 06/12/2015 CBC w/ auto diff eos % 3 % <=5 Not Available [facility] ([facility]) [address] [facility], [place], [address], 06/12/2015 19:52:35 06/12/19 16 06/12/2015 CBC w/ auto diff baso % 0.2 % 0.1-1. 1 Not Available [facility] (Lab) [address] [facility], [place], [address], 06/12/2015 19:52:35 06/12/19 16 06/13/2015 HbA1c (hemo globi n A1c), blood hemoglobin A1C 5.4 % 4.8-5. 6 . Pre-d iabet es: 5.7 - 6.4 Diabe ivet: >6.4 Glyce [place] contr ol for adult s with diabe ivet: <7.0 Not Available [facility] (Lab) [address] [facility], [place], [address], 06/13/2015 04:12:44 06/12/19 16 06/13/2015 T4, total , serum thyroxine T4 4.7 ug/dL 4.5-12 .0 Not Available [facility] (Lab) [address] [facility], [place], [address], 06/13/2015 05:19:09 06/12/1906/13/2015 CMP, serum or plasm a glucose, serum 98 mg/dL 65-99 Not Available [facility]) [address] [facility], [place], [address], 06/13/2015 05:19:11 06/12/19 16 06/13/2015 CMP, serum or plasm a BUN 7 mg/dL 6-24 Not Available [facility] (Lab) [address] [facility], [place], [address], 06/13/2015 05:19:11 06/12/19 16 06/13/2015 CMP, serum or plasm a creatinine, serum 0.78 mg/dL 0.76-1 .27 Not Available [facility] (Lab) [address], [place], [address], 06/13/2015 05:19:11 06/12/19 16 06/13/2015 CMP, serum or plasm a eGFR if nonafricn AM 102 mL/mi n/1.7 3 >59 Not Available [facility] (Lab) [address], [place], [address], 06/13/2015 05:19:11 06/12/19 16 06/13/2015 CMP, serum or plasm a eGFR if 118 mL/mi n/1.7 3 >59 Not Available [facility] (Lab) [address], [place], [address], 06/13/2015 05:19:11 06/12/19 16 06/13/2015 CMP, serum or plasm a BUN/creatini ne ratio 9 9-20 Not Available [facility] (Lab) [address], [place], [address], 06/13/2015 05:19:11 06/12/19 16 06/13/2015 CMP, serum or plasm a sodium, serum 141 mmol/ L 134-14 4 Not Available [facility] (Lab) [address], [place], [address], 06/13/2015 05:19:11 06/12/1906/13/2015 CMP, serum or plasm a potassium, serum 4.5 mmol/ L 3.5-5. 2 Not Available [facility] (Lab) [address], [place], [address], 06/13/2015 05:19:11 06/12/1906/13/2015 CMP, serum or plasm a chloride, serum 101 mmol/ L 97-108 Not Available [facility] (Lab) [address] [place], [address], 06/13/2015 05:19:11 06/12/19 16 06/13/2015 CMP, serum or plasm a carbon dioxide, total 23 mmol/ L 18-29 Not Available [facility] (Lab) [address], [place], [address], 06/13/2015 05:19:11 06/12/19 16 06/13/2015 CMP, serum or plasm a calcium, serum 9.5 mg/dL 8.7-10 .2 Not Available [facility] (Lab) [address], [place], [address], 06/13/2015 05:19:11 06/12/1906/13/2015 CMP, serum or plasm a protein total serum 7.2 g/dL 6.0-8. 5 Not Available [facility] (Lab) [address], [place], [address], 06/13/2015 05:19:11 06/12/19 16 06/13/2015 CMP, serum or plasm a albumin, serum 4.5 g/dL 3.5-5. 5 Not Available [facility] (Lab) [address], [place], [address], 06/13/2015 05:19:11 06/12/19 16 06/13/2015 CMP, serum or plasm a globulin total 2.7 g/dL 1.5-4. 5 Not Available [facility] (Lab) [address] [place], [address], 06/13/2015 05:19:11 06/12/1906/13/2015 CMP, serum or plasm a A/G ratio 1.7 1.1-2. 5 Not Available [facility] (Lab) [address] [place], [address], 06/13/2015 05:19:11 06/12/19 16 06/13/2015 CMP, serum or plasm a bilirubin total <0.2 mg/dL 0.0-1. 2 Not Available [facility] (Lab) [address] [place], [address], 06/13/2015 05:19:11 06/12/19 16 06/13/2015 CMP, serum or plasm a alkaline phosphatase ser 105 IU/L 39-117 Not Available [facility] (Lab) [address] [place], [address], 06/13/2015 05:19:11 06/12/19 16 06/13/2015 CMP, serum or plasm a AST (SGOT) 20 IU/L 0-40 Not Available [facility] ([facility]) [address] [place], [address], 06/13/2015 05:19:11 06/12/19 16 06/13/2015 CMP, serum or plasm a ALT (SGPT) 18 IU/L 0-44 Not Available [facility] ([facility]) [address] [place], [address], 06/13/2015 05:19:11 06/12/19 16 06/13/2015 TSH, serum or plasm a TSH 2.010 uIU/m L 0.450- 4.500 Not Available [facility] ([facility]) [address] [place], [address], 06/13/2015 05:19:12 06/12/1906/13/2015 PSA, serum or plasm [...] ce of truong mena se. Not Available [facility] (Lab) [address] [place], [address], 06/13/2015 05:19:13 06/12/19 16 06/13/2015 lipid panel w/ direc t LDL, serum cholesterol, total 215 mg/dL 100-19 9 high Not Available [facility] (Lab) [address] [place], [address], 06/13/2015 05:19:14 06/12/19 16 06/13/2015 lipid panel w/ direc t LDL, serum triglyceride s 73 mg/dL 0-149 Not Available [facility] ([facility]) [address] [place], [address], 06/13/2015 05:19:14 06/12/19 16 06/13/2015 lipid panel w/ direc t LDL, serum HDL cholesterol 85 mg/dL >39 Accor ding to ATP-I II Guide lines , HDL-C >59 mg/dL is consi dered a negat phan risk facto r for CHD. Not Available [facility] (Lab) [address] [place], [address], 06/13/2015 05:19:14 06/12/19 16 06/13/2015 lipid panel w/ direc t LDL, serum VLDL cholesterol margarita 15 mg/dL 5-40 Not Available [facility] (Lab) [address] [place], [address], 06/13/2015 05:19:14 06/12/19 16 06/13/2015 lipid panel w/ direc t LDL, serum LDL cholesterol calc 115 mg/dL 0-99 high Not Available [facility] (Lab) [address] [place], [address], 06/13/2015 05:19:14 06/12/19 16 06/13/2015 lipid panel w/ direc t LDL, serum lipid calculation Not Available [facility] [address] [place], [address], 06/13/2015 05:19:14 09/22/19 15 09/21/2014 imagi ng/di agnos tic resul t No observ ation record ed. [address] , [place], [address], 09/30/2014 11:19:53 09/26/19 15 imagi ng/di agnos tic resul t No observ ation record ed. [email or web address] Not Available 2014 11:08:28 10/01/19 15 09/27/2014 imagi ng/di agnos tic resul t No observ ation record ed. [address] [place], [address], 10/03/2014 11:08:29 11/09/19 15 11/08/2014 imagi ng/di agnos tic resul t No observ ation record ed. [email or web address] Not Available 2014 15:10:11 12/02/19 15 12/01/2014 imagi ng/di agnos tic resul t No observ ation record ed. [email or web address] Not Available 2014 10:38:41 01/03/20 15 12/31/2014 imagi ng/di agnos tic resul t No observ ation record ed. [facility] (Rad) [address] [place], [address], 01/02/2015 09:50:17 01/07/20 15 01/05/2015 imagi ng/di agnos tic resul t No observ ation record ed. [email or web address] [facility], [place], [address], 01/06/2015 09:32:38 03/10/20 15 03/10/2015 imagi ng/di agnos tic resul t No observ ation record ed. [email or web address] [facility] (Rad) [address] [place], [address], 03/10/2015 12:50:58 03/11/20 15 03/11/2015 CV EKG 12 lead JORGE ALBERTOMOJGAN MD: KIRILL ANN MD 6905 ACCT: [id number] ADMIT/ SERVIC E DATE: DISCHA RGE DATE: : 1959 PT TYPE: ADM IN SEX: M ORD SITE: [address] TEST DATE: 2014-05 PAT NAME: MOJGAN ADAME MENT: CARD 40 PATIEN T ID: [id number] ROOM: [facility] GENDER : MALE TECHNI MARIA ISABEL: CDN : 01-[address] BY: CADE MOHAMUD S SETH ORDER NUMBER : [id number] [id number] uL MD: FELIPE SELF MEASUR EMENTS INTERV ALS AXIS RATE: 145 P: 81 NV: 118 QRS: 19 QRSD: 82 T: 70 QT: 282 QTC: 438 INTERP RETIVE STATEM ENTS SINUS TACHYC ARDIA WITH SHORT NV INTERV AL WITH OCCASI ONAL VENTRI CULAR PREMAT URE COMPLE XES WITH OCCASI ONAL SUPRAV ENTRIC ULAR AMBER SEPTAL MYOCAR DIAL INFARC TION, PROBAB LY OLD NONSPE CIFIC ST SEGMEN T ABNORM ALITIE S, CANNOT RULE OUT ISCHEM IA ELECTR ONICAL LY SIGNED BY FELIPE SELF AT 17:03: 07 CDT [facility] [address], [place], [address], 05/07/2015 04:08:47 03/11/20 15 03/11/2015 xr chest 1 view alejandradwight KELLYLINDSEY MOJGAN SELF 6905 ADMIT/ SERVIC E DATE: ACCT: [id number] DISCHA RGE DATE: : 1959 SEX: M ORD SITE: [facility] PT TYPE: ADM IN JING MUHAMMAD MD: KIRILL ANN MD STUDY DATE REPORT # ORDER # EXT ORDER ID [id number] 1.002 PROC CODE: [id number] ORT PROCED URE DESCRI PTION: XR CHEST 1 VIEW PORTAB LE I MPRESS ION: NO ACUTE INFILT RATE. EXAMIN ATION: PORTAB LE CHEST X-RAY 1 VIEW ACCESS ION: [id number] EXAM DATE/T TRAVON: 2014 8:36 PM CLINIC [...] SIGNED BY: MARYBEL CROUCH ER10/07/2014 8:54 PM [facility] [address], [place], [address], 05/07/2015 04:08:47 03/12/20 15 03/12/2015 MRI brain wo MOJGAN TABOR 6905 ADMIT/ SERVIC E DATE: ACCT: [id number] DISCHA RGE DATE: : 1959 SEX: M ORD SITE: [facility] PT TYPE: ADM IN ORDERI NG MD: KIRILL ANN MD STUDY DATE REPORT # ORDER # EXT ORDER ID [id number] 1.001 PROC CODE: BRNWOC PROCED URE DESCRI [...] BRAIN WITHOU T CONTRA ST. ACCESS ION: [id number] EXAM DATE/T TRAVON: 2014 11:23 AM CLINIC [...] SIGNED BY: CADE GRAY 11:51 AM build [facility] [address], [place], [address], 05/07/2015 04:08:47 06/19/19 16 06/19/2015 imagi ng/di agnos tic resul t No observ ation record ed. [facility] Not Available 2015 09:33:44 06/19/19 16 06/19/2015 imagi ng/di agnos tic resul t No observ ation record ed. [facility] (Lab) [address] [place] [address] [place], [address], 06/19/2015 09:33:44 06/19/19 16 06/19/2015 imagi ng/di agnos tic resul t No observ ation record ed. [facility] (Lab) [address] [place] [address] [place], [address], 06/20/2015 09:57:26 06/20/19 16 06/19/2015 imagi ng/di agnos tic resul t No observ ation record ed. [address] [place], [address], 06/20/2015 10:01:56 05/09/20 19 05/09/2019 US, les aldana id arter y No observ ation record ed. [facility] [address], [place], [address], 05/09/2019 17:59:20 Result Notes None recorded. Problems Name Problem SNOMED Code Status Onset Date Resolution Date Notes Provider Name and Address Organization Details Recorded Time Low back pain 420927725 Active Burke Ann MD Attn: Zulemalivia lu,[address] [facility], [place], [address], [place] [facility] 5 16:09:38 Essential hypertension 12701001 Active Burke Ann MD Attn: Austin tabitha,[address] [facility], [place], [address], [facility] 6 18:34:53 Anxiety 68218601 Active Burke Ann MD Attn: Austin tabitha,[address] [facility], [place], [address], [facility] 5 15:03:30 Laceration - injury 095637441 Active Burke Ann MD Attn: Austin tabitha,[address] [facility], [place], [address], [place] [facility] 5 15:31:20 Seizure disorder 569091031 Active Burke Ann MD Attn: Austin tabitha,[address] [facility], [place], [address], [facility] 6 18:34:53 Cerebrovascula r accident 931893431 Active Burke Ann MD Attn: Austin lu,[address] [facility], [place], [address], [place] [facility] 6 18:34:53 Insomnia 597819362 Active Burke Ann MD Attn: Austin lu,[address] [facility], [place], [address], [facility] 5 15:31:20 Problem Notes Documentation Provider Name and Address Organization Details Recorded Time Consult Note : MOJGAN TABOR MD: ACCT: [id number] ADMIT/SERVICE DATE: 06/25/16 DISCHARGE DATE: 06/25/16 : 1960 PT TYPE: DIS IN SEX: M ORD SITE: [facility] CHART DOCUMENT DATE OF CONSULTATION: 06/25/2016 [...] 06/26/2016 12:55 P JOAO CRAWFORD M.D. P #[id number] P/MA CC: DEBRA MUÑOZ M.D. KRISTEN REINEKE-PIPER, MD [facility] 06/29/2016 10:56:44 Medical Equipment None [...] cm 20.2 kg/m2 78 /min 18 /min 02330.1 5469 g 142/90 mm[Hg] Darlene Luan [facility] 5 13:46:55 Date Recorded Heart rate Body height Respiratory rate Body mass index (BMI) Body weight Body temperature Systolic And Diastolic Provider Name and Address Organization Details Last Updated DateTime 6 92 /min 170.18 cm 20 /min 21.5 kg/m2 09928.1 5469 g 98 [degF] 102/78 mm[Hg] Leonor Arauz MA [facility] 6 16:31:07 Date Recorded Respiratory rate Body weight Body temperature Body height Body mass index (BMI) Heart rate Systolic And Diastolic Provider Name and Address Organization Details Last Updated DateTime 5 22 /min 73378.9 00850 g 98.7 [degF] 170.18 cm 21.4 kg/m2 80 /min 148/94 mm[Hg] Leonor Arauz MA [facility] 5 15:57:48 Date Recorded Body height Body mass index (BMI) Body weight Heart rate Respiratory rate Body temperature Systolic And Diastolic Provider Name and Address Organization Details Last Updated DateTime 5 170.18 cm 21.5 kg/m2 87285.1 5469 g 88 /min 20 /min 98.2 [degF] 132/80 mm[Hg] Fior Pereyra MA [place] [facility] 5 12:08:47 Social History None [...] Skin Problems N Anemia N Heart Attack (VT) N Diabetes N Seizures/Epilepsy Y Asthma N Allergies N Hepatitis N Heart Failure N Osteoporosis N Past Encounters Encounter ID Performer Location Encounter Start Date Encounter Closed Date Diagnosis/Indication Diagnosis SNOMED-CT Code Diagnosis ICD10 Code Diagnosis Note [id number] Burke Ann MD [facility] (Adult/Fa m Med) [address] [place] [address] 06/10/2014 13:26:21 06/10/2014 18:13:06 Laceration - injury 699091360 Seizure disorder 723172556 Cerebrovas cular accident 636766732 Insomnia 039449992 [id number] Burke Ann MD [facility] (Adult/Fa m Med) [address] [place] [address] 09/18/2014 14:45:50 09/18/2014 18:01:22 Seizure disorder 271116658 Anxiety 14566885 Low back pain 078872142 [id number] Burke Ann MD [facility] (Adult/Fa m Med) [address] [place] [address] 04/16/2015 11:24:38 04/16/2015 17:33:17 Essential hypertension 57748386 I10 Anxiety 00018639 F41.9 Seizure disorder 7254479 02 G40.909 [id number] Burke Ann MD [facility] (Adult/Fa m Med) [address] [place] [address] 06/12/2015 15:25:04 06/27/2015 12:04:51 Essential hypertension 12794919 I10 Seizure disorder 7548447 02 G40.909 Cerebrovas cular accident 895907459 I63.9 Health Concerns Section Related Observation LastModified by Organization Detai ls LastModified Time None Recorded Concern Status LastModified by Organization Details LastModified Time None Recorded Advance Directives Directive None Recorded Payers Insurance Date Sequence Insurance Name Policy Number Policy Gilbert Covered Member ID Gilbert Member ID Guarantor Name 07/02/2016 1 [facility] PRIOR TO 11/27/2020 (MEDICAID REPLACEMENT - HMO) Mojgan Tabor [id number] Mojgan Tabor Notes Date Note Type Note Provider Name and Address Organization Details Recorded Time 09/18/2014 text/html Musculoskeletal PainReported by PatientHPIFor location, patient reportspain is not radiating. For severity, patient reportsimproving. For associated symptoms, patient reportsno fever,no weak limbs,no tingling,no numbness of the legs/feet, andno incontinence. For adl (activities of daily living), patient reportsimprove with medication. Burke Ann MD Attn: [employer]ing,[address] [place], [address], [facility] 09/18/2014 16:09:59 04/16/2015 text/html COPDReported by PatientHPI:For severity, patient reportsnot limiting. For associated symptoms, patient reportsno snoring,no excessive daytime sleepiness,no arousals from sleep,no dyspnea,no decrease in exercise capacity,no fatigue,not coughing up sputum,no cough,no fever,no wheezing,no weight loss, andno depression. FOLLOW up care since stroke Burke Ann MD Attn: Accounting[address] [place], [address], [facility] 04/16/2015 15:03:31
[2024-12-22 21:40] VITALS: PULSE 106; RESP 18; O2SAT 95
[2024-12-22 22:00] VITALS: PULSE 109; RESP 22; O2SAT 98
[2024-12-22 22:02] VITALS: BP 134/86; PULSE 109; RESP 23; O2SAT 96
[2024-12-22 22:03] VITALS: PULSE 108; RESP 23; O2SAT 97
--- NOTE | 2024-12-22 22:12 | ED_ITS ---
HPI - Nausea/Vomiting/Diarrhea General Chief complaint: Nausea/Vomiting/Diarrhea Stated complaint: vomiting Source: EMS and RN notes reviewed Mode of arrival: EMS Limitations: other (Pt trached, unable to speak, can nod yes or no) History of Present Illness HPI Narrative: 64 y/o AAM in the ED from [place] for one bout of N/V approximately 1-2 hrs ago, dislodging his trach. Trach replaced immediately by [place] staff. Pt has had a total of 2 doses of Zofran. Pt endorses abd pain. Pt denies CP, SOB, nausea currently, V/D. Related Data Home Medications ?Medication ?Instructions ?Recorded ?Confirmed ?Last Taken ?Type metoprolol tartrate 25 mg tablet 25 mg feeding tube BID 12/18/22 11/25/24 10/16/24 20:55 History 25 mg polyethylene glycol 3350 17 17 g feeding tube DAILY PRN 12/18/22 11/25/24 10/16/24 17:10 History gram/dose oral powder Constipation 17 grams bisacodyl 10 mg rectal suppository 10 mg RECTAL DAILY PRN Constipation 02/11/23 11/25/24 10/17/24 01:50 History 10 mg sennosides 8.6 mg tablet (senna) 8.6 mg feeding tube BID 02/11/23 11/25/24 10/16/24 10:00 History 8.6 mg guaifenesin 100 mg/5 mL oral liquid 300 mg feeding tube Q12H PRN Cough 07/08/23 11/25/24 10/17/24 05:50 History 300 mg magnesium hydroxide 400 mg/5 mL 30 ml feeding tube HS PRN 12/13/23 11/25/24 09/11/24 12:10 History oral suspension (Milk of Magnesia) Constipation 30 mL atorvastatin 40 mg tablet 40 mg feeding tube HS 02/10/24 11/25/24 10/16/24 21:00 History 40 mg calcium carbonate 500 mg/5 mL (as 1,250 mg feeding tube Q6H PRN 02/10/24 11/25/24 Unknown History calcium carb 1,250 mg/5 mL) oral Heartburn suspension folic acid 1 mg tablet 1 mg feeding tube DAILY 02/10/24 11/25/24 10/16/24 10:00 History 1 mg ipratropium 0.5 mg-albuterol 3 mg 3 ml inhalation Q6H PRN Shortness 02/10/24 11/25/24 Unknown History (2.5 mg base)/3 mL nebulization Of Breath soln magnesium citrate (Citroma oral 296 ml feeding tube DAILY PRN 02/10/24 11/25/24 Unknown History solution) Constipation thiamine HCl (vitamin B1) 100 mg 100 mg feeding tube DAILY 02/10/24 11/25/24 10/16/24 10:00 History tablet 100 mg acetaminophen 650 mg/20.3 mL oral 650 mg feeding tube Q4H PRN Pain 03/30/24 11/25/24 10/16/24 17:10 History suspension (Scale Score 1-3) 650 mg aspirin 81 mg chewable tablet 81 mg feeding tube DAILY 03/30/24 11/25/24 10/16/24 10:00 History 81 mg finasteride 5 mg tablet 5 mg feeding tube DAILY 10/18/24 11/25/24 10/16/24 10:00 History 5 mg glycopyrrolate 2 mg tablet 2 mg feeding tube Q8H 10/18/24 11/25/24 10/17/24 01:50 History 2 mg metoclopramide HCl 10 mg tablet 10 mg feeding tube Q6H PRN nausea 10/18/24 11/25/24 10/16/24 19:15 History and vomiting 10 mg ondansetron HCl 4 mg tablet 4 mg feeding tube Q6H PRN nausea 10/18/24 11/25/24 10/15/24 00:50 History and vomiting 4 mg pantoprazole 40 mg tablet,delayed 40 mg PO Q12H 10/18/24 11/25/24 10/16/24 17:10 History release 40 mg Allergies Allergy/AdvReac Type Severity Reaction Status Date / Time clonazepam AdvReac Unknown drowsiness Verified 12/13/24 07:33 Review of Systems 2 Review of Systems: CONSTITUTIONAL: Denies fever, chills, or sweats. EYES: Denies visual changes, redness, or discharge. ENT: Denies rhinorrhea, congestion, sore throat, or otalgia. CARDIOVASCULAR: Denies chest pain, palpitations, or edema. RESPIRATORY: Denies cough or dyspnea. GASTROINTESTINAL: Endorses abdominal pain. Denies nausea, vomiting, or diarrhea. GENITOURINARY: Denies dysuria or hematuria. SKIN: Denies rash or itching. MUSCULOSKELETAL: Denies back pain, joint pain, or myalgia. NEUROLOGIC: Denies headache, numbness, or weakness. PSYCHIATRIC: Denies anxiety or depression. [facility] Past Medical History Medical History Acute lactic acidosis History of multiple strokes Residual expressive aphasia, dysphagia, and left-sided weakness. Esophagitis Anemia Aspiration pneumonia Elevated LFTs Atrial fibrillation with rapid ventricular response Thrombocytopenia Rash of face Lung collapse Right Mucus plugging of bronchi Increased tracheal secretions Epilepsy Intractable seizure disorder Status epilepticus Severe sepsis Tracheitis Sepsis with acute hypoxic respiratory failure Acute kidney injury UTI (urinary tract infection) Acute pancreatitis Diarrhea Cholecystitis Pancreatitis 09/2024 Deep venous thrombosis of upper extremity Benign prostatic hyperplasia Esophageal diverticulum Gastroparesis Iron deficiency anemia Vascular dementia with psychotic disturbance Surgical History Surgical History History of gastrostomy tube placement (07/09/23) History of tracheostomy History of left above knee amputation Family History Family History Other Unknown family medical history Social History Social History Social History: Surrogate medical decision maker: Adriane Hilliard, sibling. Code status: Full code. 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 HEAD: Normocephalic, atraumatic. EYES: PERRLA and EOMI. ENT: Nares clear, no rhinorrhea or epistaxis. Mucous membranes moist. NECK: Supple. Trach in place CHEST: Clear to auscultation. No respiratory distress. HEART: Regular rate and rhythm. No murmur heard. Normal peripheral pulses. ABDOMEN: Soft, nontender, distended, normal active bowel sounds. EXTREMITIES: Normal range of motion. No edema. SKIN: Warm, dry, no rash. NEURO: No focal deficits. Alert and oriented. PSYCH: Normal mood and affect. Course Vital Signs Vital signs: Vital Signs Temperature 36.8 C 12/22/24 21:13 Pulse Rate 104 H 12/22/24 21:13 Respiratory Rate 20 12/22/24 21:13 Blood Pressure 144/84 H 12/22/24 21:13 Pulse Oximetry 97 12/22/24 21:13 Oxygen Delivery Room Air 12/22/24 21:13 Temperature 36.8 C 12/22/24 21:13 Pulse Rate 110 H 12/23/24 01:24 Respiratory Rate 17 12/23/24 01:24 Blood Pressure 137/85 12/23/24 01:24 Pulse Oximetry 97 12/23/24 01:24 Oxygen Delivery Room Air 12/22/24 21:13 MDM - Nausea/Vomiting/Diarrhea MDM Narrative Medical decision making narrative: HPI: 64 y/o AAM in the ED from [place] for one bout of N/V approximately 1-2 hrs ago, dislodging his trach. Trach replaced immediately by [place] staff. Pt has had a total of 2 doses of Zofran. Pt endorses abd pain. Pt denies CP, SOB, nausea currently, V/D. My Plan Labs Ordered: CBC and CMP Imaging Ordered: CXR, CT abd pelvis Medications Ordered: None Results: CBC and CMP unremarkable and similar to previous results Diagnosis: Nausea and vomiting Risks: HEART score, PECARN score, CURB-65 score Consults: No signs and symptoms of infection. White count within normal limits. Chest x- ray not show signs of aspiration pneumonia. CT abdomen shows no acute findings. Differential Diagnosis Differential diagnosis: Likely other (abd pain, nausea and vomiting, aspiration pneumonia) Medical Records Attestation: I reviewed the patient's medical records. Lab Data Attestation: I reviewed the patient's lab results. 12/22/24 23:13 12/22/24 23:13 Labs: Lab Results 12/22/24 Range/Units 23:13 WBC 9.5 (4.5-10.0) K/mm3 RBC 4.08 L (4.6-6.20) M/mm3 Hgb 13.0 L (14.0-18.0) g/dL Hct 39.7 L (42.0-52.0) % MCV 97.3 (80-100) fl MCH 31.9 (26-34) pg MCHC 32.7 (32-36) g/dl RDW 13.2 (11.5-14.5) % Plt Count 268 (150-375) k/mm3 MPV 10.5 H (7.4-10.4) fl Immature Gran % (Auto) 0.3 (0-0.5) % Neut % (Auto) 61.0 (45.5-73.1) % Lymph % (Auto) 26.3 (18.3-44.2) % Sunflower % (Auto) 7.4 (2.6-8.5) % Eos % (Auto) 4.7 H (0-4.4) % Baso % (Auto) 0.3 (0.2-1.2) % Lymph # (Auto) 2.49 (0.9-3.2) K/mm3 Sunflower # (Auto) 0.7 H (0.1-0.6) K/mm3 Eos # (Auto) 0.4 H (0-0.3) K/mm3 Baso # (Auto) 0.0 (0.0-0.1) K/mm3 Abs Immat Gran (auto) 0.03 (0.00-0.031) K/mm3 Absolute Neuts (auto) 5.8 (1.3-6.7) K/mm3 Absolute Nucleated RBC 0.000 (0.0-0.012) K/mm3 Nucleated RBC % 0.0 (0.0-0.2) % Sodium 135 L (137-145) mmol/L Potassium 4.1 (3.4-5.0) mmol/L Chloride 102 (98-107) mmol/L Carbon Dioxide 25 (22-30) mmol/L Anion Gap 8 (4-12) mmol/L BUN 14 (9-20) mg/dL Creatinine 0.57 L (0.7-1.3) mg/dL Estim Creat Clear Calc 111 ml/min Estimated GFR > 60 (59 - ) Glucose 103 (65-110) mg/dL Calcium 9.6 (8.4-10.2) mg/dL Total Bilirubin 0.5 (0.2-1.3) mg/dL AST 45 (17-59) U/L ALT 58 H (6-50) U/L Alkaline Phosphatase 120 (38-126) U/L Total Protein 8.2 (6.3-8.2) g/dL Albumin 4.3 (3.5-5.1) g/dL Imaging Data My impression: Chest x-ray shows no signs of aspiration pneumonia Radiologist's impression: CT and abdomen pelvis without contrast Atelectasis at the lung bases Diverticulosis, without acute diverticulitis. No small bowel obstruction. No free air. Arthrosclerotic changes of the aorta. Degenerative changes of the spine. No nephrolithiasis, hydronephrosis, or obstructive uropathy. Impression: No acute findings. Discharge Plan Discharge Clinical Impression: Nausea & vomiting Qualifiers: Vomiting type: unspecified Qualified Code(s): R11.2 - Nausea with vomiting, unspecified Patient Disposition: SNF Condition: Stable Instructions: Acute Nausea and Vomiting (ED) Patient Language: Upper Sorbian Prescriptions: No Action bisacodyl 10 mg Suppository 10 mg RECTAL DAILY PRN (Reason: Constipation) Rx Instructions: if no results for MOM sennosides [senna] 8.6 mg Tablet 8.6 mg feeding tube BID guaifenesin 100 mg/5 mL liquid 300 mg feeding tube Q12H PRN (Reason: Cough) magnesium hydroxide [Milk of Magnesia] 400 mg/5 mL Suspension 30 ml feeding tube HS PRN (Reason: Constipation) Rx Instructions: If no BM in 3 days amoxicillin-pot clavulanate 400-57 mg/5 mL Suspension For Reconstitution 5 ml feeding tube Q8HR Qty: 90 0RF metoclopramide HCl [Reglan] 10 mg tablet 10 mg feeding tube Q6H PRN (Reason: nausea and vomiting) Qty: 30 0RF polyethylene glycol 3350 17 gram/dose powder 17 g feeding tube DAILY PRN (Reason: Constipation) metoprolol tartrate 25 mg tablet 25 mg feeding tube BID atorvastatin 40 mg tablet 40 mg feeding tube HS ipratropium-albuterol 0.5 mg-3 mg(2.5 mg base)/3 mL solution for nebulization 3 ml INHALATION Q6H PRN (Reason: Shortness Of Breath) thiamine HCl (vitamin B1) 100 mg Tablet 100 mg feeding tube DAILY magnesium citrate [Citroma] Solution 296 ml feeding tube DAILY PRN (Reason: Constipation) Rx Instructions: if no results from enema folic acid 1 mg tablet 1 mg feeding tube DAILY calcium carbonate 500 mg/5 mL (1,250 mg/5 mL) Suspension 1,250 mg feeding tube Q6H PRN (Reason: Heartburn) aspirin 81 mg Tablet,Chewable 81 mg feeding tube DAILY acetaminophen 650 mg/20.3 mL Suspension 650 mg feeding tube Q4H PRN (Reason: Pain (Scale Score 1-3)) finasteride 5 mg tablet 5 mg feeding tube DAILY glycopyrrolate 2 mg tablet 2 mg feeding tube Q8H metoclopramide HCl 10 mg tablet 10 mg feeding tube Q6H PRN (Reason: nausea and vomiting) ondansetron HCl 4 mg tablet 4 mg feeding tube Q6H PRN (Reason: nausea and vomiting) pantoprazole 40 mg tablet,delayed release (DR/EC) 40 mg PO Q12H amlodipine [Norvasc] 5 mg Tablet 5 mg feeding tube DAILY 30 Days Qty: 30 1RF isosorbide dinitrate 5 mg Tablet 5 mg feeding tube TID 30 Days Qty: 90 1RF levetiracetam 100 mg/mL solution 2,000 mg feeding tube BID 30 Days Qty: 0 1RF lacosamide 10 mg/mL solution 250 mg feeding tube BID 30 Days Qty: 200 2RF Follow-up/Referrals: PHYSICIAN NOT ON STAFF,NONSTAFF [Primary Care Provider] - Stand Alone Forms: Long Term Discharge Time of Disposition: 00:47
--- NOTE | 2024-12-22 23:17 | PC.NURSE ---
Patient suctioned. Tolerated well.
[2024-12-22 23:20] LABS: Hematocrit 39.7 % (42.0-52.0); Hemoglobin 13.0 g/dL (14.0-18.0); Immature Granulocyte Percent A 0.3 % (0-0.5); Lymphocytes Absolute Auto 2.49 K/mm3 (0.9-3.2); Mean Corpuscular HGB Conc 32.7 g/dl (32-36); Mean Corpuscular Hemoglobin 31.9 pg (26-34); Mean Corpuscular Volume 97.3 fl (80-100); Nucleated Red Blood Cells Absolute Auto 0.000 K/mm3 (0.0-0.012); Nucleated Red Blood Cells Perc 0.0 % (0.0-0.2); Platelet Count Result 268 k/mm3 (150-375); Red Blood Count 4.08 M/mm3 (4.6-6.20); White Blood Count 9.5 K/mm3 (4.5-10.0)
[2024-12-22 23:44] LABS: Alanine Aminotransferase 58 U/L (6-50); Albumin Level 4.3 g/dL (3.5-5.1); Alkaline Phosphatase 120 U/L (38-126); Anion Gap 8 mmol/L (4-12); Aspartate Amino Transferase 45 U/L (17-59); Bilirubin,Total 0.5 mg/dL (0.2-1.3); Blood Urea Nitrogen 14 mg/dL (9-20); Calcium 9.6 mg/dL (8.4-10.2); Carbon Dioxide 25 mmol/L (22-30); Chloride 102 mmol/L (98-107); Estimated CRCL calculation 111 ml/min; Estimated Glomerular Filt Rate > 60; Glucose 103 mg/dL (65-110); Potassium 4.1 mmol/L (3.4-5.0); Sodium 135 mmol/L (137-145); Total Protein 8.2 g/dL (6.3-8.2)
[2024-12-22 23:50] VITALS: PULSE 106; RESP 19; O2SAT 99
[2024-12-23] VITALS (14 sets, daily range): BP systolic 137–144; BP diastolic 84–85; PULSE 102–128; RESP 12–24; O2SAT 96–97
[2024-12-23] MEDS: ACETAMINOPHEN ELIXIR 325 MG/10.15 ML UDC 650 MG PO (02:12)
== END 2024-12-23 04:40 | disposition home or self-care (01) ==
PROVIDERS: Emergency Provider Registered Nurse Emergency
DX: R11.2 Nausea with vomiting, unspecified (principal); I48.91 Unspecified atrial fibrillation; Z79.82 Long term (current) use of aspirin; G40.919 Epilepsy, unspecified, intractable, without status epilepticus; Z86.718 Personal history of other venous thrombosis and embolism; I69.320 Aphasia following cerebral infarction; I69.391 Dysphagia following cerebral infarction; I69.354 Hemiplegia and hemiparesis following cerebral infarction affecting left non-dominant side; R13.10 Dysphagia, unspecified; Z93.1 Gastrostomy status
CPT/HCPCS: 36415; 71045; 74176; 80053; 85025; 99284; A9270

== ENCOUNTER 2025-01-01 21:51 | Inpatient (IN) | payer OTHER, SELFPAY ==
--- NOTE | ~2025-01-01 | XR_ITS ---
CHEST RADIOGRAPH CLINICAL HISTORY: cp . COMPARISON: 12/22/2024 TECHNIQUE: Single portable view of the chest. FINDINGS Tracheostomy tube identified with its tip projecting over the thoracic inlet. The remainder of the cardiomediastinal silhouette is otherwise unremarkable. The lungs are clear. IMPRESSION: No focal infiltrate or effusion. Reviewed, dictated and finalized at location A.
--- NOTE | ~2025-01-01 | CT_ITS ---
EXAMINATION: CTA chest PE protocol DATE: 01/02/2025 11:14 CDT INDICATION: Chest pain TECHNIQUE: Computed tomographic angiography (CTA) of the chest was performed with 100 mL Omnipaque-35 0 intravenous contrast. The dose-length product was 435.59 mGy-cm. Maximum intensity projection 3D-re constructions of the aorta and other arteries were constructed by the technologist on a separate work station. COMPARISON: CT dated 12/15/2024. FINDINGS: Heart size normal. Mediastinal lipomatosis. Study is technically adequate without evidence for pulmonary embolism. No evidence for aortic aneurysm or dissection. There is atherosclerosis of th e aorta and coronary arteries. No significant pleural or pericardial effusion. There is developing bi lateral lower lobe airspace consolidation, consistent with pneumonia. Consider aspiration. No endobro nchial lesions. There is soft tissue in the trachea, likely mucus. Tracheostomy tube present. Small h iatal hernia. There is a catheter in the duodenum uncertain origin. IMPRESSION: 1. Developing bilateral lower lobe airspace disease, consistent with pneumonia. No evidence for pulmo nary embolism. Reviewed, dictated and finalized at location A. IMPRESSION: 1. Developing bilateral lower lobe airspace disease, consistent with pneumonia. No evidence for pulmonary embolism.
[2025-01-01 21:56] VITALS: BP 128/72; PULSE 102; RESP 18; TEMP 36.6; O2SAT 100
--- NOTE | 2025-01-01 22:14 | PC.NURSE ---
This RN spoke with pt. sister Adriane and [facility]. Adriane updated on pt. condition upon arrival to [facility] and all questions answered. She would like a chest pain workup done on pt. She can be reached on her cell at anytime breanna [phone].
--- NOTE | 2025-01-01 22:15 | ECG_ITS ---
Test Date: 2025-01-01 22:26:48 Measurements Intervals [place] Rate: 96 P: 71 KS: 171 QRS: -41 QRSD: 96 T: 78 QT: 338 QTc: 429 Interpretive Statements SINUS RHYTHM INFERIOR INFARCT, AGE INDETERMINATE ANTEROSEPTAL ST ELEVATION- CONSIDER ACUTE INFARCT OR OLD INFARCT WITH MURAL ANEURYSM BASELINE ARTIFACT- I, II, AVR, AVL, V1 ABNORMAL ECG Compared to ECG 12/15/2024 05:19:23 HEART RATE HAS DECRE[address] ELEVATION NO PRESENT Electronically Signed On 01-02-2025 06:18:49 CDT by Dave Hernandez D.O.
[2025-01-01 23:17] LABS: Hematocrit 38.4 % (42.0-52.0); Hemoglobin 12.7 g/dL (14.0-18.0); Immature Granulocyte Percent A 0.3 % (0-0.5); Lymphocytes Absolute Auto 2.41 K/mm3 (0.9-3.2); Mean Corpuscular HGB Conc 33.1 g/dl (32-36); Mean Corpuscular Hemoglobin 32.2 pg (26-34); Mean Corpuscular Volume 97.2 fl (80-100); Nucleated Red Blood Cells Absolute Auto 0.000 K/mm3 (0.0-0.012); Nucleated Red Blood Cells Perc 0.0 % (0.0-0.2); Platelet Count Result 263 k/mm3 (150-375); Red Blood Count 3.95 M/mm3 (4.6-6.20); White Blood Count 8.0 K/mm3 (4.5-10.0)
--- NOTE | 2025-01-01 23:26 | ED_ITS ---
HPI - Chest Pain General Chief Complaint: Chest Pain Stated Complaint: CP, trach Time Seen by Provider: 01/01/25 22:04 Source: patient and RN notes reviewed Mode of arrival: EMS Limitations: clinical condition History of Present Illness HPI narrative: Patient presents with report left-sided chest pain and shortness of breath. He is chronically bed-bound with a trach. EMS had noted that it seemed like he had not been suctioned in a bit and they provided suction. After this patient had indicated that his shortness of breath was improved. Upon arrival, patient is able to nod or shake had no in response to questions and indicates that his shortness of breath is better but still with some left-sided chest pain, improving. Patient does not know if he is on any anticoagulation. Patient is able to indicate that he had never had a heart attack until 1 of his more recent visits. Reportedly daughter had noted that he had received tramadol today which has been known to increase his anxiety. Cardiac risk factors HTN: No HLD: Yes DM: Patient states no, listed on [facility] documentation but not on any medications Obese: No Smoker: No Personal history FL/TIA/CVA: Yes Fam Hx FL in first degree relative <65yo: Yes Related Data Home Medications ?Medication ?Instructions ?Recorded ?Confirmed ?Last Taken ?Type metoprolol tartrate 25 mg tablet 25 mg feeding tube BID 12/18/22 01/02/25 01/01/25 20:40 History 25 mg polyethylene glycol 3350 17 17 g feeding tube DAILY PRN 12/18/22 01/02/25 01/01/25 17:10 History gram/dose oral powder Constipation 17 grams bisacodyl 10 mg rectal suppository 10 mg RECTAL DAILY PRN Constipation 02/11/23 01/02/25 10/17/24 01:50 History 10 mg sennosides 8.6 mg tablet (senna) 8.6 mg feeding tube BID 02/11/23 01/02/25 01/01/25 08:05 History 8.6 mg guaifenesin 100 mg/5 mL oral liquid 300 mg feeding tube Q12H PRN Cough 07/08/23 01/02/25 10/17/24 05:50 History 300 mg magnesium hydroxide 400 mg/5 mL 30 ml feeding tube HS PRN 12/13/23 01/02/25 09/11/24 12:10 History oral suspension (Milk of Magnesia) Constipation 30 mL atorvastatin 40 mg tablet 40 mg feeding tube HS 02/10/24 01/02/25 01/01/25 20:45 History 40 mg calcium carbonate 500 mg/5 mL (as 1,250 mg feeding tube Q6H PRN 02/10/24 01/02/25 Unknown History calcium carb 1,250 mg/5 mL) oral Heartburn suspension folic acid 1 mg tablet 1 mg feeding tube DAILY 02/10/24 01/02/25 01/01/25 07:05 History 1 mg ipratropium 0.5 mg-albuterol 3 mg 3 ml inhalation Q6H PRN Shortness 02/10/24 01/02/25 Unknown History (2.5 mg base)/3 mL nebulization Of Breath soln magnesium citrate (Citroma oral 296 ml feeding tube DAILY PRN 02/10/24 01/02/25 Unknown History solution) Constipation thiamine HCl (vitamin B1) 100 mg 100 mg feeding tube DAILY 02/10/24 01/02/25 01/01/25 08:10 History tablet 100 mg acetaminophen 650 mg/20.3 mL oral 650 mg feeding tube Q4H PRN Pain 03/30/24 01/02/25 12/24/24 00:10 History suspension (Scale Score 1-3) 650 mg aspirin 81 mg chewable tablet 81 mg feeding tube DAILY 03/30/24 01/02/25 01/01/25 08:05 History 81 mg finasteride 5 mg tablet 5 mg feeding tube DAILY 10/18/24 01/02/25 01/01/25 08:10 History 5 mg glycopyrrolate 2 mg tablet 2 mg feeding tube Q8H 10/18/24 01/02/25 01/01/25 17:00 History 2 mg metoclopramide HCl 10 mg tablet 10 mg feeding tube Q6H PRN nausea 10/18/24 01/02/25 01/01/25 17:00 History and vomiting 10 mg ondansetron HCl 4 mg tablet 4 mg feeding tube Q6H PRN nausea 10/18/24 01/02/25 10/15/24 00:50 History and vomiting 4 mg pantoprazole 40 mg tablet,delayed 40 mg PO Q12H 10/18/24 01/02/25 01/01/25 17:00 History release 40 mg Allergies Allergy/AdvReac Type Severity Reaction Status Date / Time tramadol AdvReac Intermediate Anxiety Verified 01/01/25 22:14 clonazepam AdvReac Unknown drowsiness Verified 01/01/25 22:14 [facility] Past Medical History Medical History Acute lactic acidosis History of multiple strokes Residual expressive aphasia, dysphagia, and left-sided weakness. Esophagitis Anemia Aspiration pneumonia Elevated LFTs Atrial fibrillation with rapid ventricular response Thrombocytopenia Rash of face Lung collapse Right Mucus plugging of bronchi Increased tracheal secretions Epilepsy Intractable seizure disorder Status epilepticus Severe sepsis Tracheitis Sepsis with acute hypoxic respiratory failure Acute kidney injury UTI (urinary tract infection) Acute pancreatitis Diarrhea Cholecystitis Pancreatitis 09/2024 Deep venous thrombosis of upper extremity Benign prostatic hyperplasia Esophageal diverticulum Gastroparesis Iron deficiency anemia Vascular dementia with psychotic disturbance Surgical History Surgical History History of gastrostomy tube placement (07/09/23) History of tracheostomy History of left above knee amputation Family History Family History Other Unknown family medical history Social History Social History Social History: Surrogate medical decision maker: Adriane Hilliard, sibling. Code status: Full code. 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 HEAD: Normocephalic, atraumatic. EYES: Non injected, non icteric ENT: Nares clear, no rhinorrhea or epistaxis. Gross auditory acuity intact. NECK: Supple. No meningismus. Trach in place with Venturi/humidified air, 8 liters/minute. CHEST: No respiratory distress. HEART: Regular rate and rhythm. . ABDOMEN: Soft, nondistended. Feeding tube in place EXTREMITIES: Left AKA SKIN: Warm, dry, no rash. NEURO: Alert and oriented. Answering questions. Baseline mentation PSYCH: Congruent mood and affect. Course Vital Signs Vital signs: Vital Signs Temperature 98 F 01/01/25 21:56 Pulse Rate 102 H 01/01/25 21:56 Respiratory Rate 18 01/01/25 21:56 Blood Pressure 128/72 01/01/25 21:56 Pulse Oximetry 100 01/01/25 21:56 Oxygen Delivery Venturi Mask 01/01/25 21:56 Oxygen Flow Rate 6 01/01/25 21:56 Fraction of Inspired Oxygen 30 01/01/25 21:56 Temperature 97.9 F 01/02/25 16:32 Pulse Rate 91 01/02/25 17:45 Respiratory Rate 18 01/02/25 16:32 Blood Pressure 105/67 01/02/25 16:32 Pulse Oximetry 96 01/02/25 16:32 Oxygen Delivery High Flow Therapy with Trach Collar 01/02/25 16:00 Oxygen Flow Rate 30 01/02/25 16:00 Fraction of Inspired Oxygen 40 01/02/25 12:00 MDM - Chest Pain MDM Narrative Medical decision making narrative: Patient presents with report of left-sided chest pain and shortness of breath. Chronically bed-bound/debilitated with trach in place. This required suctioning for EMS after which shortness of breath had improved. Upon my initial assessment patient noted that his shortness of breath had improved and his chest pain was improving although still somewhat present. In the emergency department he is afebrile with vital signs notable for tachycardia. HEART SCORE History 2 highly suspicious 1 moderately suspicious 0 slightly suspicious History score [address] depression/elevation not due to LBBB, LVH, or digoxin [address] depression but LBBB, LVH, nonspecific repolarization changes 0 normal ECG score [ ] Age 2 >/= 65 1 45-64 0 <45 Age score 1 Risk factors (HTN, hypercholesterolemia, DM, obesity with BMI >30, current smoker or cessation </=3mo), positive fam hx with parent or sibling with CVD before age 65, atherosclerotic disease (prior FL, PCI/CABG, CVA/TIA, or peripheral arterial disease) 2 >/= 3 risk factors or history of atherosclerotic dz 1 - 1-2 risk factors 0 no known risk factors Risk factor score 2 Initial Troponin 2 >3 times normal limit 1 1-3 times normal limit 0 less than or equal to normal limit Troponin score 1 Total HEART Score = at least 4 Patient typically has a normal troponin. He did have a troponin of 0.044 during one of his more recent visits. Normocytic anemia, stable from previous. On repeat assessment his chest pain has resolved. Repeat troponin remains elevated, though essentially flat. Given the elevated troponins, patient to be admitted for NSTEMI to the IMU. Discussed with on-call hospitalist Dr. Roach. Patient had indicated to the nurse that he was ready to go back home/to the facility. I did update him on the elevated troponins and the need for admission. Differential Diagnosis Differential diagnosis: Likely pneumothorax, stable angina, unstable angina pectoris, atypical chest pain, st elevation myocardial infarction, chest pain, biliary colic and other (Respiratory distress/hypoxia, suspect due to transiently clogged/plugged trach; possible medication side effect) Medical Records Data Attestation: I reviewed the patient's medical records. Medical records narrative: No previous echo in EMR per review Lab Data Attestation: I reviewed the patient's lab results. 01/01/25 23:10 01/01/25 23:10 Labs: Lab Results 01/01/25 01/02/25 Range/Units 23:10 03:03 WBC 8.0 (4.5-10.0) K/mm3 RBC 3.95 L (4.6-6.20) M/mm3 Hgb 12.7 L (14.0-18.0) g/dL Hct 38.4 L (42.0-52.0) % MCV 97.2 (80-100) fl MCH 32.2 (26-34) pg MCHC 33.1 (32-36) g/dl RDW 13.0 (11.5-14.5) % Plt Count 263 (150-375) k/mm3 MPV 11.3 H (7.4-10.4) fl Immature Gran % (Auto) 0.3 (0-0.5) % Neut % (Auto) 53.3 (45.5-73.1) % Lymph % (Auto) 30.2 (18.3-44.2) % Dale % (Auto) 11.2 H (2.6-8.5) % Eos % (Auto) 4.6 H (0-4.4) % Baso % (Auto) 0.4 (0.2-1.2) % Lymph # (Auto) 2.41 (0.9-3.2) K/mm3 Dale # (Auto) 0.9 H (0.1-0.6) K/mm3 Eos # (Auto) 0.4 H (0-0.3) K/mm3 Baso # (Auto) 0.0 (0.0-0.1) K/mm3 Abs Immat Gran (auto) 0.02 (0.00-0.031) K/mm3 Absolute Neuts (auto) 4.3 (1.3-6.7) K/mm3 Absolute Nucleated RBC 0.000 (0.0-0.012) K/mm3 Nucleated RBC % 0.0 (0.0-0.2) % PT 13.4 (11.1-14.7) Seconds INR 1.0 APTT 31.5 (22.3-36.8) Seconds Sodium 133 L (137-145) mmol/L Potassium 3.9 (3.4-5.0) mmol/L Chloride 100 (98-107) mmol/L Carbon Dioxide 27 (22-30) mmol/L Anion Gap 6 (4-12) mmol/L BUN 16 (9-20) mg/dL Creatinine 0.52 L (0.7-1.3) mg/dL Estim Creat Clear Calc Not Reportable Estimated GFR > 60 (59 - ) Glucose 104 (65-110) mg/dL Calcium 9.2 (8.4-10.2) mg/dL Total Bilirubin 0.5 (0.2-1.3) mg/dL AST 32 (17-59) U/L ALT 29 (6-50) U/L Alkaline Phosphatase 106 (38-126) U/L Troponin I 0.053 H* 0.054 H* (0.000-0.034) ng/mL Total Protein 7.4 (6.3-8.2) g/dL Albumin 4.0 (3.5-5.1) g/dL Lipase 78 (23-300) U/L Procalcitonin 0.0 ng/mL Imaging Data Radiologist's impression: Impressions Chest X-Ray 01/01/25 22:51 IMPRESSION: No focal infiltrate or effusion. ECG Data EKG #1: Attestation: I personally reviewed and interpreted this ECG as follows: ECG completion date: 01/01/25 ECG completion time: 22:26 Prior ECG tracings: available for review Interpretation: Normal sinus rhythm at a rate of 96 beats per minute. NV interval 171. QRS 96. QT/QTC 338/392. No T-wave inversions. There is initial concern based on the pre populated algorithm for an acute FL based on elevation seen in V2 however this appears to be a 1 mm elevation seen in perhaps 2 complexes but not in contiguous lead complexes and otherwise not seen throughout the entirety of other V2 complexes. In addition there are no reciprocal changes. EKG #2: Attestation: I personally reviewed and interpreted this ECG as follows: ECG completion date: 01/02/25 ECG completion time: 02:10 Interpretation: Normal sinus rhythm at a rate of 87 beats per minute. NV interval 170. QRS 88. QT/QTC 348/419. Good R-wave progression across the precordial leads. No T- wave inversions. Discharge Plan Discharge Clinical Impression: Non-ST elevation FL (NSTEMI), Chest pain, Shortness of breath, Normocytic anemia Patient Disposition: Still a Patient Condition: Stable
[2025-01-01 23:31] LABS: INR 1.0; Prothrombin Time 13.4 Seconds (11.1-14.7)
[2025-01-01 23:32] LABS: Partial Thromboplastin Time 31.5 Seconds (22.3-36.8)
[2025-01-01 23:34] LABS: Alanine Aminotransferase 29 U/L (6-50); Albumin Level 4.0 g/dL (3.5-5.1); Alkaline Phosphatase 106 U/L (38-126); Anion Gap 6 mmol/L (4-12); Aspartate Amino Transferase 32 U/L (17-59); Bilirubin,Total 0.5 mg/dL (0.2-1.3); Blood Urea Nitrogen 16 mg/dL (9-20); Calcium 9.2 mg/dL (8.4-10.2); Carbon Dioxide 27 mmol/L (22-30); Chloride 100 mmol/L (98-107); Estimated Glomerular Filt Rate > 60; Glucose 104 mg/dL (65-110); Lipase 78 U/L (23-300); Potassium 3.9 mmol/L (3.4-5.0); Sodium 133 mmol/L (137-145); Total Protein 7.4 g/dL (6.3-8.2)
[2025-01-01 23:46] LABS: Troponin I 0.053 ng/mL (0.000-0.034)
[2025-01-02] VITALS (27 sets, daily range): BP systolic 105–154; BP diastolic 67–86; PULSE 84–101; RESP 14–20; TEMP 36.6–36.8; O2SAT 30–100; BMI 21.7
[2025-01-02] MEDS: ASPIRIN 81 MG CHEWABLE TABLET 324 MG PO (00:44)
--- NOTE | 2025-01-02 00:54 | PC.NURSE ---
care home eupdated on plan of care.
--- NOTE | 2025-01-02 02:01 | ECG_ITS ---
Test Date: 2025-01-02 02:10:15 Measurements Intervals [place] Rate: 87 P: 66 VA: 170 QRS: -37 QRSD: 88 T: 69 QT: 348 QTc: 419 Interpretive Statements SINUS RHYTHM WITH OCCASIONAL VENTRICULAR PREMATURE COMPLEXES ANTEROSEPTAL ST ELEVATION- CONSIDER ACUTE INFARCT OR OLD INFARCT WITH MURAL ANEURYSM INFERIOR INFARCT, AGE INDETERMINATE BASELINE ARTIFACT- I, II, AVR, V1 ABNORMAL ECG Compared to ECG 01/01/2025 22:26:48 ST ELEVATION HAS DECREASED Electronically Signed On 01-02-2025 06:20:25 CDT by Dave Hernandez D.O.
--- NOTE | 2025-01-02 02:54 | PC.NURSE ---
clean sheets applied, and pt repositioned in bed x2 assist
[2025-01-02 03:42] LABS: Troponin I 0.054 ng/mL (0.000-0.034)
[2025-01-02] MEDS: IPRATROPIUM 0.5 MG/ALBUTEROL SULFATE 2.5 MG AMPUL.NEB 3 ML INHALATION ×5 (04:29→20:42)
[2025-01-02 07:58] LABS: Troponin I 0.051 ng/mL (0.000-0.034)
--- NOTE | 2025-01-02 08:12 | PM.IMHP ---
H&P: HPI History of Present Illness Date/Time: 01/02/25 08:12 Chief Complaint: Chest pain Narrative: This is a 64-year-old male who is a intermediate resident presents to the ER with complaint of chest pain that was reported by the patient. He has does not verbalize months so most of the history is taken from medical records. In ED evaluation knee was not in acute distress. He was on a Venturi mask. Laboratory evaluation showed WBC of 8.0 hemoglobin of 12.7 platelet of 263. Chem panel showed sodium of 133 potassium 3.9 chloride 100 bicarbonate 27 BUN 16 creatinine 0.5 blood glucose of 104 initial troponin was mildly elevated at 0.053 followed by 0.054 and 0.051 lipase was normal. EKG showed sinus rhythm with occasional PVCs. Anteroseptal ST-elevation was noted which looks similar to previous EKGs. He was admitted for further evaluation and management. No further history could be obtained from the patient Review of Systems Review of Systems: - CONSTITUTIONAL: Denies weight loss, fever and chills. - HEENT: Denies changes in vision and hearing - RESPIRATORY: Denies SOB and cough. - CV: Denies palpitations and CP. - GI: Denies abdominal pain, nausea, vomiting and diarrhea. - : Denies dysuria and urinary frequency. - MSK: Denies myalgia and joint pain. - SKIN: Denies rash and pruritus. - NEUROLOGICAL: Denies headache and syncope. - PSYCHIATRIC: Denies recent changes in mood. Denies anxiety and depression. FOR[facility]LY [facility], [facility]ER [facility] Past Medical History Medical History Acute lactic acidosis History of multiple strokes Residual expressive aphasia, dysphagia, and left-sided weakness. Esophagitis Anemia Aspiration pneumonia Elevated LFTs Atrial fibrillation with rapid ventricular response Thrombocytopenia Rash of face Lung collapse Right Mucus plugging of bronchi Increased tracheal secretions Epilepsy Intractable seizure disorder Status epilepticus Severe sepsis Tracheitis Sepsis with acute hypoxic respiratory failure Acute kidney injury UTI (urinary tract infection) Acute pancreatitis Diarrhea Cholecystitis Pancreatitis 09/2024 Deep venous thrombosis of upper extremity Benign prostatic hyperplasia Esophageal diverticulum Gastroparesis Iron deficiency anemia Vascular dementia with psychotic disturbance Surgical History Surgical History History of gastrostomy tube placement (07/09/23) History of tracheostomy History of left above knee amputation Family History Family History Other Unknown family medical history Social History Social History Social History: Surrogate medical decision maker: Adriane Hilliard, sibling. Code status: Full code. 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 Additional gender identity comments: Never Spiritual care concerns: No Meds Home Medications and Allergies Home Medications ?Medication ?Instructions ?Recorded ?Confirmed ?Type metoprolol tartrate 25 mg tablet 25 mg feeding tube BID 12/18/22 01/02/25 History polyethylene glycol 3350 17 17 g feeding tube DAILY PRN 12/18/22 01/02/25 History gram/dose oral powder Constipation bisacodyl 10 mg rectal suppository 10 mg RECTAL DAILY PRN Constipation 02/11/23 01/02/25 History sennosides 8.6 mg tablet (senna) 8.6 mg feeding tube BID 02/11/23 01/02/25 History guaifenesin 100 mg/5 mL oral liquid 300 mg feeding tube Q12H PRN Cough 07/08/23 01/02/25 History magnesium hydroxide 400 mg/5 mL 30 ml feeding tube HS PRN 12/13/23 01/02/25 History oral suspension (Milk of Magnesia) Constipation atorvastatin 40 mg tablet 40 mg feeding tube HS 02/10/24 01/02/25 History calcium carbonate 500 mg/5 mL (as 1,250 mg feeding tube Q6H PRN 02/10/24 01/02/25 History calcium carb 1,250 mg/5 mL) oral Heartburn suspension folic acid 1 mg tablet 1 mg feeding tube DAILY 02/10/24 01/02/25 History ipratropium 0.5 mg-albuterol 3 mg 3 ml inhalation Q6H PRN Shortness 02/10/24 01/02/25 History (2.5 mg base)/3 mL nebulization Of Breath soln magnesium citrate (Citroma oral 296 ml feeding tube DAILY PRN 02/10/24 01/02/25 History solution) Constipation thiamine HCl (vitamin B1) 100 mg 100 mg feeding tube DAILY 02/10/24 01/02/25 History tablet acetaminophen 650 mg/20.3 mL oral 650 mg feeding tube Q4H PRN Pain 03/30/24 01/02/25 History suspension (Scale Score 1-3) aspirin 81 mg chewable tablet 81 mg feeding tube DAILY 03/30/24 01/02/25 History finasteride 5 mg tablet 5 mg feeding tube DAILY 10/18/24 01/02/25 History glycopyrrolate 2 mg tablet 2 mg feeding tube Q8H 10/18/24 01/02/25 History metoclopramide HCl 10 mg tablet 10 mg feeding tube Q6H PRN nausea 10/18/24 01/02/25 History and vomiting ondansetron HCl 4 mg tablet 4 mg feeding tube Q6H PRN nausea 10/18/24 01/02/25 History and vomiting pantoprazole 40 mg tablet,delayed 40 mg PO Q12H 10/18/24 01/02/25 History release amlodipine 5 mg tablet (Norvasc) 5 mg feeding tube DAILY 30 days 10/29/24 01/02/25 Rx #30 tabs isosorbide dinitrate 5 mg tablet 5 mg feeding tube TID 30 days #90 10/29/24 01/02/25 Rx tabs lacosamide 10 mg/mL oral solution 250 mg (25 mL) feeding tube BID 30 10/29/24 01/02/25 Rx days #200 mL levetiracetam 100 mg/mL oral 2,000 mg (20 mL) feeding tube BID 10/29/24 01/02/25 Rx solution 30 days #0 mL metoclopramide HCl 10 mg tablet 10 mg feeding tube Q6H PRN nausea 11/23/24 01/02/25 Rx (Reglan) and vomiting #30 tabs Allergies Allergy/AdvReac Type Severity Reaction Status Date / Time tramadol AdvReac Intermediate Anxiety Verified 01/01/25 22:14 clonazepam AdvReac Unknown drowsiness Verified 01/01/25 22:14 Vital Signs Vital Signs - 24 hr 01/01/25 21:56 01/02/25 04:20 01/02/25 04:41 Temperature 98 F Pulse Rate 102 H 91 97 Respiratory Rate 18 18 18 Blood Pressure 128/72 Pulse Oximetry 100 Oxygen Delivery Venturi Mask Oxygen Flow Rate 6 Fraction of Inspired Oxygen 30 01/02/25 04:57 01/02/25 05:48 01/02/25 05:50 Temperature 98.1 F 98.3 F Pulse Rate 95 84 91 Respiratory Rate 14 20 15 Blood Pressure 135/86 154/86 H Pulse Oximetry 100 97 100 Oxygen Delivery High Flow Therapy with Tr Oxygen Flow Rate 30 Fraction of Inspired Oxygen 40 01/02/25 06:00 01/02/25 06:12 01/02/25 07:53 Temperature 97.9 F Pulse Rate 95 95 101 H Respiratory Rate 20 20 Blood Pressure 148/83 H Pulse Oximetry 97 99 Oxygen Delivery High Flow Therapy with Tr Oxygen Flow Rate 30 Fraction of Inspired Oxygen 40 01/02/25 08:03 01/02/25 08:04 01/02/25 08:11 Temperature Pulse Rate 97 89 93 Respiratory Rate 19 19 Blood Pressure Pulse Oximetry 97 Oxygen Delivery High Flow Therapy with Tr Oxygen Flow Rate 30 Fraction of Inspired Oxygen 40 Exam Narrative: GENERAL: Well-appearing, well-nourished, and in no acute distress. HEAD: Normocephalic, atraumatic. EYES: Non injected, non icteric ENT: Nares clear, no rhinorrhea or epistaxis. NECK: Supple. No meningismus. CHEST: Speaking in full sentences. No respiratory distress. HEART: Regular rate and rhythm. . ABDOMEN: Soft, nondistended. No rigidity or guarding. Not peritoneal EXTREMITIES: Normal range of motion. No lower extremity edema. SKIN: Warm, dry, no rash. NEURO: No focal deficits. Alert. Answering questions. Following commands. Normal speech without aphasia or dysarthria. PSYCH: Normal mood and affect. H&P: Results Labs Labs: Short CBC 01/01/25 Range/Units 23:10 WBC 8.0 (4.5-10.0) K/mm3 Hgb 12.7 L (14.0-18.0) g/dL Hct 38.4 L (42.0-52.0) % Plt Count 263 (150-375) k/mm3 BMP 01/01/25 23:10 Sodium 133 L Potassium 3.9 Chloride 100 Carbon Dioxide 27 BUN 16 Creatinine 0.52 L Glucose 104 Calcium 9.2 Cardiac Enzymes 01/01/25 01/02/25 01/02/25 Range/Units 23:10 03:03 07:04 Troponin I 0.053 H* 0.054 H* 0.051 H* (0.000-0.034) ng/mL Liver Function 01/01/25 Range/Units 23:10 Total Bilirubin 0.5 (0.2-1.3) mg/dL AST 32 (17-59) U/L ALT 29 (6-50) U/L Alkaline Phosphatase 106 (38-126) U/L Albumin 4.0 (3.5-5.1) g/dL Assessment and Plan Assessment and plan (1) Elevated troponin: Code(s): R79.89 - Other specified abnormal findings of blood chemistry Status: Acute (2) Chest pain: Code(s): R07.9 - Chest pain, unspecified Status: Acute (3) Tracheostomy in place: Code(s): Z93.0 - Tracheostomy status Status: Chronic (4) Gastroparesis: Code(s): K31.84 - Gastroparesis Status: Chronic (5) 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 (6) Benign prostatic hyperplasia: Qualifiers: Lower urinary tract symptom presence: symptoms present Lower urinary tract symptom detail: unspecified Qualified Code(s): N40.1 - Benign prostatic hyperplasia with lower urinary tract symptoms Code(s): N40.0 - Benign prostatic hyperplasia without lower urinary tract symptoms Status: Chronic (7) History of multiple strokes: Code(s): Z86.73 - Personal history of transient ischemic attack (TIA), and cerebral infarction without residual deficits Status: Chronic (8) Recurrent seizures: Code(s): G40.909 - Epilepsy, unspecified, not intractable, without status epilepticus Status: Acute (9) Aphasia: Code(s): R47.01 - Aphasia Status: Chronic (10) Chronic respiratory failure with hypoxia: Code(s): J96.11 - Chronic respiratory failure with hypoxia Status: Acute Plan This is a 64-year-old male who is a intermediate resident presents to the ER with complaint of chest pain that was reported by the patient. He has does not verbalize months so most of the history is taken from medical records. In ED evaluation knee was not in acute distress. He was on a Venturi mask. Laboratory evaluation showed WBC of 8.0 hemoglobin of 12.7 platelet of 263. Chem panel showed sodium of 133 potassium 3.9 chloride 100 bicarbonate 27 BUN 16 creatinine 0.5 blood glucose of 104 initial troponin was mildly elevated at 0.053 followed by 0.054 and 0.051 lipase was normal. EKG showed sinus rhythm with occasional PVCs. Anteroseptal ST-elevation was noted which looks similar to previous EKGs. Chest x-ray was negative. He was admitted for further evaluation and management Atypical chest pain EKG with subtle changes however the changes were present in previous EKGs as well. Troponin is mildly elevated at 0.053-0.05 4-0.051 with flat trajectory. No echo in the past. Will consult Cardiology. Will get echocardiogram. Get CTA to rule out PE. History not able to be obtained/unreliable. Will continue on aspirin Elevated troponin with flat trajectory. Cardiology consult some abnormal EKG noted. History of recurrent seizures Status post G-tube placement Gastroparesis Status post tracheostomy with trach collar in place History of multiple strokes with left-sided flaccidity aphasia dysphagia and seizures Code status full code Hospitalist [facility] Advance Care Plan I have confirmed that the patient's Advanced Care Plan is present, code status is documented, or surrogate decision maker is listed in patient medical record.: Yes Medication Reconciliation I have utilized all available resources to obtain, update and review the patients current medications (includes all prescriptions, OTC, herbals, cannabis, and nutritional supplements).: Yes
[2025-01-02] MEDS: levETIRAcetam ORAL SOL 500 MG/5 ML UDC 2000 MG FEED TUBE ×2 (10:40→15:58)
[2025-01-02] MEDS: SENNOSIDES 8.6 MG TABLET FEED TUBE ×2 (10:41→15:59)
[2025-01-02] MEDS: THIAMINE HCL 100 MG TABLET FEED TUBE (10:41)
[2025-01-02] MEDS: GLYCOPYRROLATE 1 MG TABLET 2 MG FEED TUBE ×2 (10:41→21:16)
[2025-01-02] MEDS: METOPROLOL TARTRATE 25 MG TABLET FEED TUBE ×2 (10:42→15:58)
[2025-01-02] MEDS: FOLIC ACID 1 MG TABLET FEED TUBE (10:42)
[2025-01-02] MEDS: ASPIRIN 81 MG CHEWABLE TABLET FEED TUBE (10:42)
[2025-01-02] MEDS: FINASTERIDE 5 MG TABLET FEED TUBE (10:42)
[2025-01-02] MEDS: ISOSORBIDE DINITRATE 5 MG TABLET FEED TUBE ×3 (10:43→17:31)
[2025-01-02] MEDS: PANTOPRAZOLE SODIUM IV 40 MG VIAL IV PUSH ×2 (10:43→21:28)
[2025-01-02] MEDS: SODIUM CHLORIDE 0.9% IVPB ×2 (11:10→21:21)
[2025-01-02] MEDS: LACOSAMIDE IVPB ×2 (11:10→21:21)
[2025-01-02] MEDS: PIPERACILLIN/TAZOBACTAM SOD 3.375 GM in SODIUM CHLORIDE 0.9% IV 50 ML 100 ML IVPB ×2 (13:30→17:30)
[2025-01-02 13:34] LABS: Procalcitonin 0.0 ng/mL
--- NOTE | 2025-01-02 13:40 | PM.CNCAR ---
Assessment and Plan Assessment and plan (1) Elevated troponin: Code(s): R79.89 - Other specified abnormal findings of blood chemistry Status: Acute Plan 64-year-old man who is in very poor condition apparently because of stroke he is bed ridden and has a left lower extremity amputation and requires a chronic G-tube for medication and nutrition. He is referred here because of symptoms of chest pain. It is very difficult for me to imagine how he was able to report symptoms like this because he can not say much of anything at all in the hospital to myself or to any of the providers. His troponin level is slightly out of normal range but is flat. I would agree with getting an echocardiogram to see if there is evidence of previous anterior infarction which is suggested by the appearance of his electrocardiogram. He is on appropriate medical therapy for coronary disease. If his ejection fraction is significantly reduced we might consider shifting him to an ARB from amlodipine. Otherwise I would simply treat this gentleman with simple medical therapy. He is not a candidate for invasive evaluation in my opinion Chai Lentz MD [facility] History of Present Illness History of Present Illness Consult date/time: 01/02/25 13:40 Reason For Visit: chest pain, NSTEMI Narrative: This is a 64-year-old man I am seeing today at the request of the hospitalist because of elevation of troponin at 0.05 and flat. The patient is unknown to me prior to this encounter. He is not able to provide any history presumably because of previous strokes and dementia. He is not completely nonverbal but is not capable of providing any history. He apparently is a detention resident because of previous CVA he has a feeding tube he is bed ridden and was sent to this [facility] emergency room according to the chart because he was complaining of chest pain. The patient's electrocardiograms in the chart shows sinus rhythm with evidence suspicious for previous anterior infarction. These are not new changes on the patient's ECG. His troponin levels were sampled mentioned above and they are out of normal range slightly but are flat. The patient according to the record has a history of previous CVA, previous infarction he has a feeding tube as mentioned above he also has a left [id number] amputation because of prior peripheral vascular disease and gangrene. He is not in any distress I covered up with a blanket when I came into see him he is responsive but is nearly nonverbal. The only intelligible think he I heard him say was that I do not smoke. His medical regimen is all administered per his J-tube and includes aspirin, atorvastatin, amlodipine, metoprolol and isosorbide. An echocardiogram has been ordered by the hospitalist to scan has not yet been performed. Review of Systems Review of Systems: ROS unobtainable: Yes unobtainable due to medical condition and unobtainable due to mental status FOR[facility]LY [facility] Past Medical History Medical History Acute lactic acidosis History of multiple strokes Residual expressive aphasia, dysphagia, and left-sided weakness. Esophagitis Anemia Aspiration pneumonia Elevated LFTs Atrial fibrillation with rapid ventricular response Thrombocytopenia Rash of face Lung collapse Right Mucus plugging of bronchi Increased tracheal secretions Epilepsy Intractable seizure disorder Status epilepticus Severe sepsis Tracheitis Sepsis with acute hypoxic respiratory failure Acute kidney injury UTI (urinary tract infection) Acute pancreatitis Diarrhea Cholecystitis Pancreatitis 09/2024 Deep venous thrombosis of upper extremity Benign prostatic hyperplasia Esophageal diverticulum Gastroparesis Iron deficiency anemia Vascular dementia with psychotic disturbance Surgical History Surgical History History of gastrostomy tube placement (07/09/23) History of tracheostomy History of left above knee amputation Family History Family History Other Unknown family medical history Social History Social History Social History: Surrogate medical decision maker: Adriane Rodriguezlin, sibling. Code status: Full code. 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 Additional gender identity comments: Never Spiritual care concerns: No Meds Home Medications and Allergies Home Medications ?Medication ?Instructions ?Recorded ?Confirmed ?Type metoprolol tartrate 25 mg tablet 25 mg feeding tube BID 12/18/22 01/02/25 History polyethylene glycol 3350 17 17 g feeding tube DAILY PRN 12/18/22 01/02/25 History gram/dose oral powder Constipation bisacodyl 10 mg rectal suppository 10 mg RECTAL DAILY PRN Constipation 02/11/23 01/02/25 History sennosides 8.6 mg tablet (senna) 8.6 mg feeding tube BID 02/11/23 01/02/25 History guaifenesin 100 mg/5 mL oral liquid 300 mg feeding tube Q12H PRN Cough 07/08/23 01/02/25 History magnesium hydroxide 400 mg/5 mL 30 ml feeding tube HS PRN 12/13/23 01/02/25 History oral suspension (Milk of Magnesia) Constipation atorvastatin 40 mg tablet 40 mg feeding tube HS 02/10/24 01/02/25 History calcium carbonate 500 mg/5 mL (as 1,250 mg feeding tube Q6H PRN 02/10/24 01/02/25 History calcium carb 1,250 mg/5 mL) oral Heartburn suspension folic acid 1 mg tablet 1 mg feeding tube DAILY 02/10/24 01/02/25 History ipratropium 0.5 mg-albuterol 3 mg 3 ml inhalation Q6H PRN Shortness 02/10/24 01/02/25 History (2.5 mg base)/3 mL nebulization Of Breath soln magnesium citrate (Citroma oral 296 ml feeding tube DAILY PRN 02/10/24 01/02/25 History solution) Constipation thiamine HCl (vitamin B1) 100 mg 100 mg feeding tube DAILY 02/10/24 01/02/25 History tablet acetaminophen 650 mg/20.3 mL oral 650 mg feeding tube Q4H PRN Pain 03/30/24 01/02/25 History suspension (Scale Score 1-3) aspirin 81 mg chewable tablet 81 mg feeding tube DAILY 03/30/24 01/02/25 History finasteride 5 mg tablet 5 mg feeding tube DAILY 10/18/24 01/02/25 History glycopyrrolate 2 mg tablet 2 mg feeding tube Q8H 10/18/24 01/02/25 History metoclopramide HCl 10 mg tablet 10 mg feeding tube Q6H PRN nausea 10/18/24 01/02/25 History and vomiting ondansetron HCl 4 mg tablet 4 mg feeding tube Q6H PRN nausea 10/18/24 01/02/25 History and vomiting pantoprazole 40 mg tablet,delayed 40 mg PO Q12H 10/18/24 01/02/25 History release amlodipine 5 mg tablet (Norvasc) 5 mg feeding tube DAILY 30 days 10/29/24 01/02/25 Rx #30 tabs isosorbide dinitrate 5 mg tablet 5 mg feeding tube TID 30 days #90 10/29/24 01/02/25 Rx tabs lacosamide 10 mg/mL oral solution 250 mg (25 mL) feeding tube BID 30 10/29/24 01/02/25 Rx days #200 mL levetiracetam 100 mg/mL oral 2,000 mg (20 mL) feeding tube BID 10/29/24 01/02/25 Rx solution 30 days #0 mL metoclopramide HCl 10 mg tablet 10 mg feeding tube Q6H PRN nausea 11/23/24 01/02/25 Rx (Reglan) and vomiting #30 tabs Allergies Allergy/AdvReac Type Severity Reaction Status Date / Time tramadol AdvReac Intermediate Anxiety Verified 01/01/25 22:14 clonazepam AdvReac Unknown drowsiness Verified 01/01/25 22:14 Vital Signs Vital Signs - 24 hr 01/01/25 21:56 01/02/25 04:20 01/02/25 04:41 Temperature 36.6 C Pulse Rate 102 H 91 97 Respiratory Rate 18 18 18 Blood Pressure 128/72 Pulse Oximetry 100 Oxygen Delivery Venturi Mask Oxygen Flow Rate 6 Fraction of Inspired Oxygen 30 01/02/25 04:57 01/02/25 05:48 01/02/25 05:50 Temperature 36.7 C 36.8 C Pulse Rate 95 84 91 Respiratory Rate 14 20 15 Blood Pressure 135/86 154/86 H Pulse Oximetry 100 97 100 Oxygen Delivery High Flow Therapy with Tr Oxygen Flow Rate 30 Fraction of Inspired Oxygen 40 01/02/25 06:00 01/02/25 06:12 01/02/25 07:53 Temperature 36.6 C Pulse Rate 95 95 101 H Respiratory Rate 20 20 Blood Pressure 148/83 H Pulse Oximetry 97 99 Oxygen Delivery High Flow Therapy with Tr Oxygen Flow Rate 30 Fraction of Inspired Oxygen 40 01/02/25 08:00 01/02/25 08:03 01/02/25 08:04 Temperature Pulse Rate 84 97 89 Respiratory Rate 19 Blood Pressure Pulse Oximetry 97 Oxygen Delivery High Flow Therapy with Tr Oxygen Flow Rate 30 Fraction of Inspired Oxygen 40 01/02/25 08:11 01/02/25 10:00 01/02/25 11:39 Temperature 36.7 C Pulse Rate 93 85 84 Respiratory Rate 19 20 Blood Pressure 120/78 Pulse Oximetry 92 Oxygen Delivery Oxygen Flow Rate Fraction of Inspired Oxygen Exam Const: General: comfortable Other: Very debilitated elderly black male appears considerably older than his stated age not in any distress lots of oral secretions that are being suctioned by the nurse HENMT: Mouth: Yes moist mucous membranes Eyes: Sclera: sclerae normal Neck: Neck: supple Resp: Other: Coarse rhonchi are noted centrally Cardio: Rate: regular rate Rhythm: regular rhythm Other: No audible murmur or gallop, difficult exam because of rhonchorous breath sounds GI: GI Palp: Yes Soft to palpation Auscultation: normal bowel sounds Skin: General skin exam: normal color Neuro: Other: Alert and responsive essentially nonverbal Extrem: Other: Status post left lower extremity amputation Results Labs and Meds 01/01/25 23:10 01/01/25 23:10 Lab results: Cardiac Enzymes 01/01/25 01/02/25 01/02/25 Range/Units 23:10 03:03 07:04 AST 32 (17-59) U/L Troponin I 0.053 H* 0.054 H* 0.051 H* (0.000-0.034) ng/mL Coagulation 01/01/25 Range/Units 23:10 PT 13.4 (11.1-14.7) Seconds APTT 31.5 (22.3-36.8) Seconds CBC 01/01/25 Range/Units 23:10 WBC 8.0 (4.5-10.0) K/mm3 RBC 3.95 L (4.6-6.20) M/mm3 Hgb 12.7 L (14.0-18.0) g/dL Hct 38.4 L (42.0-52.0) % Plt Count 263 (150-375) k/mm3 Lymph # (Auto) 2.41 (0.9-3.2) K/mm3 [place] # (Auto) 0.9 H (0.1-0.6) K/mm3 Eos # (Auto) 0.4 H (0-0.3) K/mm3 Baso # (Auto) 0.0 (0.0-0.1) K/mm3 Comprehensive Metabolic Panel 01/01/25 Range/Units 23:10 Sodium 133 L (137-145) mmol/L Potassium 3.9 (3.4-5.0) mmol/L Chloride 100 (98-107) mmol/L Carbon Dioxide 27 (22-30) mmol/L BUN 16 (9-20) mg/dL Creatinine 0.52 L (0.7-1.3) mg/dL Glucose 104 (65-110) mg/dL Calcium 9.2 (8.4-10.2) mg/dL AST 32 (17-59) U/L ALT 29 (6-50) U/L Alkaline Phosphatase 106 (38-126) U/L Total Protein 7.4 (6.3-8.2) g/dL Albumin 4.0 (3.5-5.1) g/dL Patient Weight 01/02/25 23:59 Weight 70.5 kg
[2025-01-02] MEDS: DOXYCYCLINE IV 100 MG in SODIUM CHLORIDE 0.9% IV 100 ML IVPB (14:07)
[2025-01-02 16:37] LABS: MRSA (PCR) DETECTED (NOT DETECTE)
[2025-01-02] MEDS: ATORVASTATIN 40 MG TABLET FEED TUBE (21:16)
[2025-01-03] VITALS (24 sets, daily range): BP systolic 115–127; BP diastolic 73–80; PULSE 83–106; RESP 16–20; TEMP 36–36.9; O2SAT 92–100
[2025-01-03] MEDS: PIPERACILLIN/TAZOBACTAM SOD 3.375 GM in SODIUM CHLORIDE 0.9% IV 50 ML 100 ML IVPB ×5 (01:07→23:40)
[2025-01-03] MEDS: DOXYCYCLINE IV 100 MG in SODIUM CHLORIDE 0.9% IV 100 ML IVPB (01:18)
[2025-01-03] MEDS: IPRATROPIUM 0.5 MG/ALBUTEROL SULFATE 2.5 MG AMPUL.NEB 3 ML INHALATION ×4 (01:32→21:06)
[2025-01-03] MEDS: GLYCOPYRROLATE 1 MG TABLET 2 MG FEED TUBE ×3 (05:53→21:24)
[2025-01-03] MEDS: levETIRAcetam ORAL SOL 500 MG/5 ML UDC 2000 MG FEED TUBE ×2 (08:33→16:40)
[2025-01-03] MEDS: ASPIRIN 81 MG CHEWABLE TABLET FEED TUBE (08:33)
[2025-01-03] MEDS: SENNOSIDES 8.6 MG TABLET FEED TUBE ×2 (08:34→16:40)
[2025-01-03] MEDS: ISOSORBIDE DINITRATE 5 MG TABLET FEED TUBE ×3 (08:34→16:40)
[2025-01-03] MEDS: THIAMINE HCL 100 MG TABLET FEED TUBE (08:34)
[2025-01-03] MEDS: FINASTERIDE 5 MG TABLET FEED TUBE (08:34)
[2025-01-03] MEDS: FOLIC ACID 1 MG TABLET FEED TUBE (08:34)
[2025-01-03] MEDS: METOPROLOL TARTRATE 25 MG TABLET FEED TUBE ×2 (08:34→16:40)
[2025-01-03] MEDS: PANTOPRAZOLE SODIUM IV 40 MG VIAL IV PUSH ×2 (08:34→21:24)
[2025-01-03] MEDS: SODIUM CHLORIDE 0.9% IVPB ×2 (08:36→21:24)
[2025-01-03] MEDS: LACOSAMIDE IVPB ×2 (08:36→21:24)
--- NOTE | 2025-01-03 09:21 | P.PNIM_ITS ---
Progress Note: A&P Assessment and Plan (1) Elevated troponin: Code(s): R79.89 - Other specified abnormal findings of blood chemistry Status: Acute (2) Chest pain: Code(s): R07.9 - Chest pain, unspecified Status: Acute (3) Tracheostomy in place: Code(s): Z93.0 - Tracheostomy status Status: Chronic (4) Gastroparesis: Code(s): K31.84 - Gastroparesis Status: Chronic (5) 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 (6) Benign prostatic hyperplasia: Qualifiers: Lower urinary tract symptom detail: unspecified Lower urinary tract symptom presence: symptoms present Qualified Code(s): N40.1 - Benign prostatic hyperplasia with lower urinary tract symptoms Code(s): N40.0 - Benign prostatic hyperplasia without lower urinary tract symptoms Status: Chronic (7) History of multiple strokes: Code(s): Z86.73 - Personal history of transient ischemic attack (TIA), and cerebral infarction without residual deficits Status: Chronic (8) Recurrent seizures: Code(s): G40.909 - Epilepsy, unspecified, not intractable, without status epilepticus Status: Acute (9) Aphasia: Code(s): R47.01 - Aphasia Status: Chronic (10) Chronic respiratory failure with hypoxia: Code(s): J96.11 - Chronic respiratory failure with hypoxia Status: Acute Plan Pneumonia, Status post tracheostomy with trach collar in place Hospital associated Possible gram negative, gram positive. Less likely viral or atypical Chest x-ray negative. CTA showed developing pneumonia. Has thick yellow secretions --Vanc/Zosyn --Follow WBC --Trach care Chest pain Elevated troponin Troponin may be elevated 2/2 demand. Initial troponin was mildly elevated at 0.053 followed by 0.054 and 0.051 lipase was normal EKG anteroseptal ST elevation, sinus rhythm with occasional PVCs. Cardiology consulted and no indication for acute intervention. --Continue aspirin History of recurrent seizures--Continue AED's. Lacosamide, Levetiracetam BID Status post G-tube placement--Continue Tube feeds Gastroparesis History of multiple strokes with left-sided flaccidity aphasia dysphagia and seizures. Continue ASA Code status: full code Time Spent With Patient Time: 56 minutes Subjective Date/time seen: 01/03/25 09:21 Interval history: Denies chest pain this morning CTA showing developing pneumonia. Yellow secretions on exam. Coarse lower lobes Cardiology evaluated and no recommendation for ischemic eval, signed off Review of Systems Review of Systems: Exam Narrative: GENERAL: Well-appearing, well-nourished, and in no acute distress. HEAD: Normocephalic, atraumatic. EYES: Non injected, non icteric ENT: Nares clear, no rhinorrhea or epistaxis. Trach with yellow secretions NECK: Supple. No meningismus. CHEST: Speaking in full sentences. No respiratory distress. HEART: Regular rate and rhythm. . ABDOMEN: Soft, nondistended. No rigidity or guarding. Not peritoneal EXTREMITIES: Normal range of motion. No lower extremity edema. SKIN: Warm, dry, no rash. NEURO: No focal deficits. Alert. Answering questions. Following commands. Normal speech without aphasia or dysarthria. PSYCH: Normal mood and affect Objective Data Vital Signs Vital Signs: Vital Signs - 24 hr 01/02/25 10:00 01/02/25 11:39 01/02/25 12:00 Temperature 98.0 F Pulse Rate 85 84 Respiratory Rate 20 Blood Pressure 120/78 Pulse Oximetry 92 96 Oxygen Delivery High Flow Therapy with Tr Oxygen Flow Rate 30 Fraction of Inspired Oxygen 40 01/02/25 12:00 01/02/25 14:00 01/02/25 14:16 Temperature Pulse Rate 87 91 93 Respiratory Rate 19 Blood Pressure Pulse Oximetry Oxygen Delivery Oxygen Flow Rate Fraction of Inspired Oxygen 01/02/25 14:23 01/02/25 15:58 01/02/25 16:00 Temperature Pulse Rate 96 88 Respiratory Rate 18 Blood Pressure Pulse Oximetry 98 Oxygen Delivery High Flow Therapy with Tr Oxygen Flow Rate 30 Fraction of Inspired Oxygen 01/02/25 16:00 01/02/25 16:32 01/02/25 17:45 Temperature 97.9 F Pulse Rate 93 98 91 Respiratory Rate 18 Blood Pressure 105/67 Pulse Oximetry 96 Oxygen Delivery Oxygen Flow Rate Fraction of Inspired Oxygen 01/02/25 20:00 01/02/25 20:00 01/02/25 20:00 Temperature 97.8 F Pulse Rate 90 89 Respiratory Rate 18 Blood Pressure 123/68 Pulse Oximetry 98 95 Oxygen Delivery High Flow Therapy with Tr Oxygen Flow Rate 30 Fraction of Inspired Oxygen 01/02/25 20:42 08/06/25 20:42 01/02/25 20:47 Temperature Pulse Rate 96 101 H Respiratory Rate 19 19 Blood Pressure Pulse Oximetry 96 Oxygen Delivery High Flow Therapy with Tr Oxygen Flow Rate 30 Fraction of Inspired Oxygen 21 01/02/25 22:00 01/02/25 23:55 01/03/25 00:00 Temperature 97.8 F Pulse Rate 91 98 Respiratory Rate 18 Blood Pressure 128/71 Pulse Oximetry 96 98 Oxygen Delivery High Flow Therapy with Tr Oxygen Flow Rate 30 Fraction of Inspired Oxygen 01/03/25 00:00 01/03/25 01:32 01/03/25 01:39 Temperature Pulse Rate 99 104 H 103 H Respiratory Rate 16 16 Blood Pressure Pulse Oximetry Oxygen Delivery Oxygen Flow Rate Fraction of Inspired Oxygen 01/03/25 02:00 01/03/25 04:00 01/03/25 04:00 Temperature 98.4 F Pulse Rate 92 103 H Respiratory Rate 18 Blood Pressure 127/73 Pulse Oximetry 97 100 Oxygen Delivery High Flow Therapy with Tr Oxygen Flow Rate 30 Fraction of Inspired Oxygen 01/03/25 04:00 01/03/25 06:43 01/03/25 08:01 Temperature 98.2 F Pulse Rate 105 H 99 100 Respiratory Rate 20 Blood Pressure 127/80 Pulse Oximetry 95 Oxygen Delivery Oxygen Flow Rate Fraction of Inspired Oxygen 01/03/25 08:34 01/03/25 08:57 01/03/25 08:57 Temperature Pulse Rate 99 102 H 102 H Respiratory Rate 20 20 Blood Pressure Pulse Oximetry 92 Oxygen Delivery High Flow Therapy with Tr Oxygen Flow Rate 30 Fraction of Inspired Oxygen 21 01/03/25 09:13 Temperature Pulse Rate 96 Respiratory Rate 20 Blood Pressure Pulse Oximetry Oxygen Delivery Oxygen Flow Rate Fraction of Inspired Oxygen Intake/Output Intake/Output: Intake & Output 12/31/24 01/01/25 01/02/25 01/03/25 23:59 23:59 23:59 23:59 Intake Total 305 936 Output Total 800 350 Balance -495 586 Meds/Results Medications: Active Medications Generic Name Dose Route Start Last Admin Trade Name Freq PRN Reason Stop Dose Admin Acetaminophen 650 mg 01/02/25 04:03 Acetaminophen 650 Mg Suppository RECTAL Q6H PRN Mild Pain (1-3) or Fever Acetaminophen 650 mg 01/02/25 08:21 Acetaminophen Elixir 325 Mg/10.15 Ml Udc FEED TUBE Q4H PRN Pain (Scale Score 1-3) Albuterol/Ipratropium 3 ml 01/02/25 08:00 01/03/25 08:51 Ipratropium 0.5 Mg/Albuterol Sulfate 2.5 Mg Ampul.Neb 3 Ml INHALATION 3 ml Q6HRT TERRELL Administration Albuterol/Ipratropium 3 ml 01/03/25 02:00 01/03/25 08:50 Ipratropium 0.5 Mg/Albuterol Sulfate 2.5 Mg Ampul.Neb 3 Ml INHALATION Not Given Q6HRT TERRELL Amlodipine Besylate 5 mg 01/02/25 09:00 01/03/25 08:34 Amlodipine Besylate 5 Mg Tablet FEED TUBE 5 mg DAILY TERRELL Administration Aspirin 81 mg 01/02/25 09:00 01/03/25 08:33 Aspirin 81 Mg Chewable Tablet FEED TUBE 81 mg DAILY TERRELL Administration Atorvastatin Calcium 40 mg 01/02/25 21:00 01/02/25 21:16 Atorvastatin 40 Mg Tablet FEED TUBE 40 mg HS TERRELL Administration Bisacodyl 10 mg 01/02/25 08:21 Bisacodyl 10 Mg Suppository RECTAL DAILY PRN Constipation Calcium Carbonate 1,000 mg 01/02/25 08:30 Calcium Carbonate (Tums) 500 Mg (200 Mg Elemental) FEED TUBE Q6H PRN Heartburn Finasteride 5 mg 01/02/25 09:00 01/03/25 08:34 Finasteride 5 Mg Tablet FEED TUBE 5 mg DAILY TERRELL Administration Folic Acid 1 mg 01/02/25 09:00 01/03/25 08:34 Folic Acid 1 Mg Tablet FEED TUBE 1 mg DAILY TERRELL Administration Glycopyrrolate 2 mg 01/02/25 20:00 01/03/25 05:53 Glycopyrrolate 1 Mg Tablet FEED TUBE 2 mg Q8HR TERRELL Administration Guaifenesin 300 mg 01/02/25 08:21 Guaifenesin 200 Mg/10 Ml Udc FEED TUBE Q12H PRN Cough Piperacillin Sod/Tazobactam 50 mls @ 100 mls/hr 01/02/25 12:20 01/03/25 05:54 Sod 3.375 gm/ Sodium Chloride IVPB 100 mls/hr Q6HR TERRELL Administration Doxycycline Hyclate 100 mg/ 100 mls @ 100 mls/hr 08/06/25 13:00 01/03/25 01:18 Sodium Chloride IVPB 100 mls/hr Q12H TERRELL Administration Lacosamide 250 mg/ Sodium 100 mls @ 200 mls/hr 01/03/25 09:00 01/03/25 08:36 Chloride IVPB 200 mls/hr Q12HR TERRELL Administration Isosorbide Dinitrate 5 mg 01/02/25 15:00 01/03/25 08:34 Isosorbide Dinitrate 5 Mg Tablet FEED TUBE 5 mg TID TERRELL Administration Levetiracetam 2,000 mg 01/02/25 09:00 01/03/25 08:33 Levetiracetam Oral Amparo 500 Mg/5 Ml Udc FEED TUBE 2,000 mg BID TERRELL Administration Magnesium Citrate 300 ml 01/02/25 08:21 Magnesium Citrate 300 Ml Btl FEED TUBE DAILY PRN Constipation Magnesium Hydroxide 30 ml 01/02/25 08:21 Magnesium Hydroxide Susp 30 Ml Udc FEED TUBE HS PRN Constipation Metoclopramide HCl 10 mg 01/02/25 08:33 Metoclopramide Hcl 10 Mg/10 Ml Soln Udc FEED TUBE Q6H PRN nausea and vomiting Metoprolol Tartrate 25 mg 01/02/25 09:00 01/03/25 08:34 Metoprolol Tartrate 25 Mg Tablet FEED TUBE 25 mg BID TERRELL Administration Ondansetron HCl 4 mg 01/02/25 04:03 Ondansetron Inj 4 Mg/2 Ml Vial IV PUSH Q4H PRN Nausea Pantoprazole Sodium 40 mg 01/02/25 09:00 01/03/25 08:34 Pantoprazole Sodium Iv 40 Mg Vial IV PUSH 40 mg Q12HR TERRELL Administration Perflutren Lipid Microsphere 0 ml 01/02/25 08:22 Perflutren Lipid Microspheres 1.5 Ml Vial Diluted To 10 Ml Total Volume IV PUSH 01/05/25 08:23 ONCE PRN adequate visualization Protocol Polyethylene Glycol 17 gm 01/02/25 08:21 Polyethylene Glycol 3350 17 Gm Powd.Pack FEED TUBE DAILY PRN Constipation Senna 8.6 mg 01/02/25 09:00 01/03/25 08:34 Sennosides 8.6 Mg Tablet FEED TUBE 8.6 mg BID TERRELL Administration Thiamine HCl 100 mg 01/02/25 09:00 01/03/25 08:34 Thiamine Hcl 100 Mg Tablet FEED TUBE 100 mg DAILY TERRELL Administration Radiology Results: ITS Impressions Chest X-Ray 01/01/25 22:51 IMPRESSION: No focal infiltrate or effusion. Chest CTA 01/02/25 11:14 IMPRESSION: 1. Developing bilateral lower lobe airspace disease, consistent with pneumonia. No evidence for pulmonary embolism. Labs Labs: Laboratory Results - last 24 hr 01/02/25 01/02/25 01/02/25 03:03 11:05 15:27 POC Capillary Glucose 104 Procalcitonin 0.0 Nasal MRSA (PCR) Detected A* 01/02/25 01/02/25 17:47 23:46 POC Capillary Glucose 133 H 132 H Procalcitonin Nasal MRSA (PCR) Quality VTE Prophylaxis VTE prophylaxis: pharmacologic ordered Hospitalist [facility] Advance Care Plan I have confirmed that the patient's Advanced Care Plan is present, code status is documented, or surrogate decision maker is listed in patient medical record.: Yes Medication Reconciliation I have utilized all available resources to obtain, update and review the patients current medications (includes all prescriptions, OTC, herbals, cannabis, and nutritional supplements).: Yes
--- NOTE | 2025-01-03 10:04 | P.PNCA_ITS ---
Progress Note: A&P Assessment and Plan (1) Elevated troponin: Code(s): R79.89 - Other specified abnormal findings of blood chemistry Status: Acute Assessment and Plan: He does endorse chest pain but I am unable to elicit any characteristics of his pain because he is essentially nonverbal. * Continue ASA, statin * Echocardiogram is pending. If he has wall motion abnormalities or reduced LV function, plan would be to treat medically * No recommendation for any ischemic evaluation at this time * If echocardiogram is unremarkable cardiology will sign off Subjective Date/time seen: 01/03/25 10:04 Interval history: Cardiology follow up visit Sleeping when I entered the room but awakens to stimulation. When asked if he has chest pain he nodded yes then fell back asleep. Review of Systems Review of Systems: ROS unobtainable: Yes unobtainable due to medical condition and unobtainable due to mental status Exam Const: General: comfortable Other: Very debilitated elderly black male appears considerably older than his stated age not in any distress HENMT: Mouth: Yes moist mucous membranes Eyes: Sclera: sclerae normal Neck: Neck: supple Other: tracheostomy Resp: Other: Coarse rhonchi are noted centrally Cardio: Rate: regular rate Rhythm: regular rhythm Other: No audible murmur or gallop, difficult exam because of rhonchorous breath sounds GI: Auscultation: normal bowel sounds Skin: General skin exam: normal color Neuro: Other: Alert and responsive essentially nonverbal Extrem: Other: Status post left lower extremity amputation Objective Data Vital Signs Vital Signs: Vital Signs - 24 hr 01/02/25 11:39 01/02/25 12:00 01/02/25 12:00 Temperature 36.7 C Pulse Rate 84 87 Respiratory Rate 20 Blood Pressure 120/78 Pulse Oximetry 92 96 Oxygen Delivery High Flow Therapy with Tr Oxygen Flow Rate 30 Fraction of Inspired Oxygen 40 01/02/25 14:00 01/02/25 14:16 01/02/25 14:23 Temperature Pulse Rate 91 93 96 Respiratory Rate 19 18 Blood Pressure Pulse Oximetry Oxygen Delivery Oxygen Flow Rate Fraction of Inspired Oxygen 01/02/25 15:58 01/02/25 16:00 01/02/25 16:00 Temperature Pulse Rate 88 93 Respiratory Rate Blood Pressure Pulse Oximetry 98 Oxygen Delivery High Flow Therapy with Tr Oxygen Flow Rate 30 Fraction of Inspired Oxygen 01/02/25 16:32 01/02/25 17:45 01/02/25 20:00 Temperature 36.6 C Pulse Rate 98 91 Respiratory Rate 18 Blood Pressure 105/67 Pulse Oximetry 96 98 Oxygen Delivery High Flow Therapy with Tr Oxygen Flow Rate 30 Fraction of Inspired Oxygen 01/02/25 20:00 01/02/25 20:00 01/02/25 20:42 Temperature 36.6 C Pulse Rate 90 89 Respiratory Rate 18 Blood Pressure 123/68 Pulse Oximetry 95 96 Oxygen Delivery High Flow Therapy with Tr Oxygen Flow Rate 30 Fraction of Inspired Oxygen 21 01/02/25 20:42 01/02/25 20:47 01/02/25 22:00 Temperature Pulse Rate 96 101 H 91 Respiratory Rate 19 19 Blood Pressure Pulse Oximetry Oxygen Delivery Oxygen Flow Rate Fraction of Inspired Oxygen 01/02/25 23:55 01/03/25 00:00 01/03/25 00:00 Temperature 36.6 C Pulse Rate 98 99 Respiratory Rate 18 Blood Pressure 128/71 Pulse Oximetry 96 98 Oxygen Delivery High Flow Therapy with Tr Oxygen Flow Rate 30 Fraction of Inspired Oxygen 01/03/25 01:32 01/03/25 01:39 01/03/25 02:00 Temperature Pulse Rate 104 H 103 H 92 Respiratory Rate 16 16 Blood Pressure Pulse Oximetry Oxygen Delivery Oxygen Flow Rate Fraction of Inspired Oxygen 01/03/25 04:00 01/03/25 04:00 01/03/25 04:00 Temperature 36.9 C Pulse Rate 103 H 105 H Respiratory Rate 18 Blood Pressure 127/73 Pulse Oximetry 97 100 Oxygen Delivery High Flow Therapy with Tr Oxygen Flow Rate 30 Fraction of Inspired Oxygen 01/03/25 06:43 01/03/25 08:01 01/03/25 08:34 Temperature 36.8 C Pulse Rate 99 100 99 Respiratory Rate 20 Blood Pressure 127/80 Pulse Oximetry 95 Oxygen Delivery Oxygen Flow Rate Fraction of Inspired Oxygen 01/03/25 08:57 01/03/25 08:57 01/03/25 09:13 Temperature Pulse Rate 102 H 102 H 96 Respiratory Rate 20 20 20 Blood Pressure Pulse Oximetry 92 Oxygen Delivery High Flow Therapy with Tr Oxygen Flow Rate 30 Fraction of Inspired Oxygen 21 Intake/Output Intake/Output: Intake & Output 12/31/24 01/01/25 01/02/25 01/03/25 23:59 23:59 23:59 23:59 Intake Total 305 936 Output Total 800 350 Balance -495 586 Meds/Results Medications: Active Medications Generic Name Dose Route Start Last Admin Trade Name Freq PRN Reason Stop Dose Admin Acetaminophen 650 mg 01/02/25 04:03 Acetaminophen 650 Mg Suppository RECTAL Q6H PRN Mild Pain (1-3) or Fever Acetaminophen 650 mg 01/02/25 08:21 Acetaminophen Elixir 325 Mg/10.15 Ml Udc FEED TUBE Q4H PRN Pain (Scale Score 1-3) Albuterol/Ipratropium 3 ml 01/02/25 08:00 01/03/25 08:51 Ipratropium 0.5 Mg/Albuterol Sulfate 2.5 Mg Ampul.Neb 3 Ml INHALATION 3 ml Q6HRT TERRELL Administration Albuterol/Ipratropium 3 ml 01/03/25 02:00 01/03/25 08:50 Ipratropium 0.5 Mg/Albuterol Sulfate 2.5 Mg Ampul.Neb 3 Ml INHALATION Not Given Q6HRT TERRELL Amlodipine Besylate 5 mg 01/02/25 09:00 01/03/25 08:34 Amlodipine Besylate 5 Mg Tablet FEED TUBE 5 mg DAILY TERRELL Administration Aspirin 81 mg 01/02/25 09:00 01/03/25 08:33 Aspirin 81 Mg Chewable Tablet FEED TUBE 81 mg DAILY TERRELL Administration Atorvastatin Calcium 40 mg 01/02/25 21:00 01/02/25 21:16 Atorvastatin 40 Mg Tablet FEED TUBE 40 mg HS TERRELL Administration Bisacodyl 10 mg 01/02/25 08:21 Bisacodyl 10 Mg Suppository RECTAL DAILY PRN Constipation Calcium Carbonate 1,000 mg 01/02/25 08:30 Calcium Carbonate (Tums) 500 Mg (200 Mg Elemental) FEED TUBE Q6H PRN Heartburn Doxycycline Hyclate 100 mg 01/03/25 11:00 Doxycycline Hyclate 100 Mg Tablet FEED TUBE Q12HR TERRELL Finasteride 5 mg 01/02/25 09:00 01/03/25 08:34 Finasteride 5 Mg Tablet FEED TUBE 5 mg DAILY TERRELL Administration Folic Acid 1 mg 01/02/25 09:00 01/03/25 08:34 Folic Acid 1 Mg Tablet FEED TUBE 1 mg DAILY TERRELL Administration Glycopyrrolate 2 mg 01/02/25 20:00 01/03/25 05:53 Glycopyrrolate 1 Mg Tablet FEED TUBE 2 mg Q8HR TERRELL Administration Guaifenesin 300 mg 01/02/25 08:21 Guaifenesin 200 Mg/10 Ml Udc FEED TUBE Q12H PRN Cough Piperacillin Sod/Tazobactam 50 mls @ 100 mls/hr 01/02/25 12:20 01/03/25 05:54 Sod 3.375 gm/ Sodium Chloride IVPB 100 mls/hr Q6HR TERRELL Administration Lacosamide 250 mg/ Sodium 100 mls @ 200 mls/hr 01/03/25 09:00 01/03/25 08:36 Chloride IVPB 200 mls/hr Q12HR TERRELL Administration Isosorbide Dinitrate 5 mg 01/02/25 15:00 01/03/25 08:34 Isosorbide Dinitrate 5 Mg Tablet FEED TUBE 5 mg TID TERRELL Administration Levetiracetam 2,000 mg 01/02/25 09:00 01/03/25 08:33 Levetiracetam Oral Amparo 500 Mg/5 Ml Udc FEED TUBE 2,000 mg BID TERRELL Administration Magnesium Citrate 300 ml 01/02/25 08:21 Magnesium Citrate 300 Ml Btl FEED TUBE DAILY PRN Constipation Magnesium Hydroxide 30 ml 01/02/25 08:21 Magnesium Hydroxide Susp 30 Ml Udc FEED TUBE HS PRN Constipation Metoclopramide HCl 10 mg 01/02/25 08:33 Metoclopramide Hcl 10 Mg/10 Ml Soln Udc FEED TUBE Q6H PRN nausea and vomiting Metoprolol Tartrate 25 mg 01/02/25 09:00 01/03/25 08:34 Metoprolol Tartrate 25 Mg Tablet FEED TUBE 25 mg BID TERRELL Administration Ondansetron HCl 4 mg 01/02/25 04:03 Ondansetron Inj 4 Mg/2 Ml Vial IV PUSH Q4H PRN Nausea Pantoprazole Sodium 40 mg 01/02/25 09:00 01/03/25 08:34 Pantoprazole Sodium Iv 40 Mg Vial IV PUSH 40 mg Q12HR TERRELL Administration Perflutren Lipid Microsphere 0 ml 01/02/25 08:22 Perflutren Lipid Microspheres 1.5 Ml Vial Diluted To 10 Ml Total Volume IV PUSH 01/05/25 08:23 ONCE PRN adequate visualization Protocol Polyethylene Glycol 17 gm 01/02/25 08:21 Polyethylene Glycol 3350 17 Gm Powd.Pack FEED TUBE DAILY PRN Constipation Senna 8.6 mg 01/02/25 09:00 01/03/25 08:34 Sennosides 8.6 Mg Tablet FEED TUBE 8.6 mg BID TERRELL Administration Thiamine HCl 100 mg 01/02/25 09:00 01/03/25 08:34 Thiamine Hcl 100 Mg Tablet FEED TUBE 100 mg DAILY TERRELL Administration Radiology Results: ITS Impressions Chest X-Ray 01/01/25 22:51 IMPRESSION: No focal infiltrate or effusion. Chest CTA 01/02/25 11:14 IMPRESSION: 1. Developing bilateral lower lobe airspace disease, consistent with pneumonia. No evidence for pulmonary embolism. Labs Labs: Laboratory Results - last 24 hr 01/02/25 01/02/25 01/02/25 03:03 11:05 15:27 POC Capillary Glucose 104 Procalcitonin 0.0 Nasal MRSA (PCR) Detected A* 01/02/25 01/02/25 17:47 23:46 POC Capillary Glucose 133 H 132 H Procalcitonin Nasal MRSA (PCR)
[2025-01-03] MEDS: DOXYCYCLINE HYCLATE 100 MG TABLET FEED TUBE ×2 (11:19→21:24)
--- NOTE | 2025-01-03 14:38 | PC.NURSE ---
This patient, Bi Tabor, was transferred to [[facility] ] on 01/03/25. Personal belongings sent with patient. Report given to [ CHRISTI]. Appropriate documentation sent with patient.
--- NOTE | 2025-01-03 15:00 | PC.NURSE ---
Received from [facility] 210/ via bed.
[2025-01-03] MEDS: ATORVASTATIN 40 MG TABLET FEED TUBE (21:24)
[2025-01-04] VITALS (21 sets, daily range): BP systolic 123–150; BP diastolic 74–85; PULSE 92–118; RESP 18–20; TEMP 36.4–36.5; O2SAT 96–100
--- NOTE | 2025-01-04 | ECHO_ITS ---
Patient Info Name: Bi Tabor Age: 64 years : 1960 Gender: Male Ht: 71 in Wt: 162 lbs BSA: 1.92 m2 HR: 108 bpm BP: 150 / 85 mmHg Heart Rhythm: Tachycardia Technical Quality: Fair Exam Date: 01/04/2025 12:59 PM Patient Status: I Admit Date: 01/03/2025 Exam Type: CA echo dop color flow w con Complete two-dimensional, color flow and Doppler transthoracic echocardiogram is performed with contrast to opacify the left ventricle and to improve the deliniation of the left ventricle endocardial borders. Staff Referring Physician: Zeferino Morfin Employment Appeals Examiner: Sarah Zapata Attending Provider: Rachel Roach DO Summary 1. Definity contrast injected to improve visualization. 2. Normal left ventricular size and overall good systolic function. 3. Akinesis of the apex and hypokinesis of the anteroseptal segment. 4. Trivial tricuspid valve regurgitation. Left Ventricle Left ventricular chamber dimension is normal. Left ventricular systolic function is normal, estimated at 60-65. The left ventricular diastolic function is grade I diastolic dysfunction. Right Ventricle Right ventricular chamber dimension is normal. Left Atria Left atrial chamber dimension is normal. Right Atria Right atrial chamber dimension is normal. Aortic Valve The aortic valve is trileaflet. There is mild aortic valve sclerosis. Pulmonic Valve The pulmonic valve is not well visualized. Mitral Valve The mitral valve has normal leaflets. Tricuspid Valve The tricuspid valve leaflets are normal. Pericardium/Pleural The pericardium appears normal. Aorta The aortic root size at the sinus of Valsalva is normal. Left Ventricular Outflow Tract Name Value Normal LVOT 2D LVOT Diameter 2.0 cm LVOT Doppler LVOT Peak Velocity 94 cm/s LVOT Peak Gradient 4 mmHg LVOT Mean Gradient 1 mmHg LVOT VTI 14 cm LVOT VTI/AV VTI Ratio 1.0 LVOT Stroke Volume 43 ml LVOT CO 4.3 l/min LVOT CI 2.2 l/min/m2 Pulmonic Valve Name Value Normal RVOT Doppler RVOT Peak Velocity 64 cm/s RVOT Peak Gradient 2 mmHg PV Doppler PV Peak Velocity 113 cm/s PV Peak Gradient 5 mmHg Mitral Valve Name Value Normal MV Diastolic Function MV E Peak Velocity 78 cm/s MV A Peak Velocity 1 cm/s MV E/A 54.1 MV Decel Time (PW) 155 ms MV Annular TDI MV E/e' (Septal) 10.9 MV E/e' (Lateral) 13.0 MV E/e' (Average) 11.9 Tricuspid Valve Name Value Normal TV Annular TDI TV Lateral Leonora s' Velocity 9.5 cm/s >=9.5 Aortic Valve Name Value Normal AV Doppler AV Peak Velocity 112 cm/s AV Peak Gradient 5 mmHg AV Mean Gradient 2 mmHg AV VTI 15 cm AV Area (Cont Eq VTI) 3.0 cm2 >=3.0 AV Area (Cont Eq Iggy) 2.6 cm2 AV DI (Iggy) 0.84 AV Regurgitation 2D LVOT Area 3.1 cm2 Ventricles Name Value Normal LV Dimensions 2D/MM IVS Diastolic Thickness (2D) 1.2 cm 0.6-1.0 LVID Diastole (2D) 3.3 cm 4.2-5.8 LVIW Diastolic Thickness (2D) 1.2 cm 0.6-1.0 LVID Systole (2D) 2.1 cm 2.5-4.0 LVOT Diameter 2.0 cm LV Mass (2D Cubed) 119.46 g 88.00-224.00 LV Mass Index (2D Cubed) 62 g/m2 49-115 Relative Wall Thickness (2D) 0.72 <=0.42 LV Fractional Shortening/Ejection Fraction 2D/MM LV Fractional Shortening (2D) 36 % 25-43 LV EF (2D Teichjoesz) 66 % LV Diastolic Volume (4C MOD) 62 ml LV EF (4C MOD) 74 % LV Diastolic Volume (2C MOD) 47 ml LV EF (2C MOD) 67 % LV Diastolic Volume (BP MOD) 56 ml 62-150 LV Diastolic Volume Index (BP MOD) 29 ml/m2 34-74 LV Systolic Volume (BP MOD) 17 ml 21-61 LV Systolic Volume Index (BP MOD) 9 ml/m2 11-31 LV EF (BP MOD) 70 % 52-72 LV Diastolic Length (4C) 8.2 cm LV Systolic Length (4C) 7.3 cm LV Stroke Volume (4C MOD) 45 ml Atria Name Value Normal LA Dimensions LA Volume (4C A-L) 41 ml LA Volume (BP A-L) 38 ml RA Dimensions RA Area (4C) 13.6 cm2 <=18.0 Report Signatures
[2025-01-04] MEDS: IPRATROPIUM 0.5 MG/ALBUTEROL SULFATE 2.5 MG AMPUL.NEB 3 ML INHALATION ×4 (03:11→20:34)
[2025-01-04] MEDS: GLYCOPYRROLATE 1 MG TABLET 2 MG FEED TUBE ×3 (05:43→21:49)
[2025-01-04] MEDS: PIPERACILLIN/TAZOBACTAM SOD 3.375 GM in SODIUM CHLORIDE 0.9% IV 50 ML 100 ML IVPB ×2 (05:43→12:54)
[2025-01-04] MEDS: levETIRAcetam ORAL SOL 500 MG/5 ML UDC 2000 MG FEED TUBE ×2 (09:24→17:54)
[2025-01-04] MEDS: PANTOPRAZOLE SODIUM IV 40 MG VIAL IV PUSH ×2 (09:24→21:49)
[2025-01-04] MEDS: SENNOSIDES 8.6 MG TABLET FEED TUBE ×2 (09:24→17:54)
[2025-01-04] MEDS: METOPROLOL TARTRATE 25 MG TABLET FEED TUBE ×2 (09:24→17:54)
[2025-01-04] MEDS: ISOSORBIDE DINITRATE 5 MG TABLET FEED TUBE ×3 (09:25→17:54)
[2025-01-04] MEDS: FOLIC ACID 1 MG TABLET FEED TUBE (09:25)
[2025-01-04] MEDS: FINASTERIDE 5 MG TABLET FEED TUBE (09:25)
[2025-01-04] MEDS: DOXYCYCLINE HYCLATE 100 MG TABLET FEED TUBE (09:25)
[2025-01-04] MEDS: ASPIRIN 81 MG CHEWABLE TABLET FEED TUBE (09:26)
[2025-01-04] MEDS: SODIUM CHLORIDE 0.9% IVPB ×2 (09:27→21:48)
[2025-01-04] MEDS: LACOSAMIDE IVPB ×2 (09:27→21:48)
[2025-01-04] MEDS: THIAMINE HCL 100 MG TABLET FEED TUBE (09:27)
--- NOTE | 2025-01-04 10:42 | PCNFU ---
Nutrition Follow-Up Complete: Inadequate energy intake related to NPO as evidenced by need for full tube feeding Goal:Meet estimated nutrition needs Pt meeting goal via tube feeding Pt current nutrition is Tube feeding: Jevity 1.5 @ 55ml/hr providing 1815kcals, 77g protein, 920ml free water. Nutrition recommendation: continue with current plan of care Last recorded weight is 73.6 kg. Bowel Motility: +BM 01/03 Labs Reviewed: Glu:132 Meds Noted: protonix Skin: WNL Additional Notes: Pt continues on same tube feeding, tolerating well. Continue with current plan of care. Monitoring weights, labs, tube feeding tolerance, output, plan of care Follow up Tuesday/Tuesday per policy
[2025-01-04] MEDS: PERFLUTREN LIPID MICROSPHERES 1.5 ML VIAL DILUTED TO 10 ML TOTAL VOLUME IV PUSH (13:20)
--- NOTE | 2025-01-04 13:47 | IVDEFINITY ---
Prior to administration of IV Definity the patient was educated on the risks and benefits of the imaging enhancing agent including potential adverse side effects. The patient verbalized understanding. Allergies were verified. No exclusion criteria were identified and at least one of the following inclusion criteria were met: 1) physician request, 2) patient technically difficult to image (per the [place] [employer] guidelines of two or more segments not discernable within the apical view), or 3) questionable left ventricular function. ?
--- NOTE | 2025-01-04 14:32 | P.PNCA_ITS ---
Progress Note: A&P Assessment and Plan (1) Chest pain: Code(s): R07.9 - Chest pain, unspecified Status: Acute Plan 64-year-old man with: Symptoms of chest pain very difficult history to obtain. No clear evidence of ACS. As mentioned in my initial consultation note he is not a candidate for catheterization. His echocardiogram does confirm the electrocardiographic diagnosis of previous infarction. He has hypokinesis of the anteroseptal segment and akinesis of the apex but overall normal left ventricular systolic function. He therefore is on appropriate medication there are no needs to adjust his medications in my opinion. We will sign off at this time. Do not plan additional cardiac investigation Chai Lentz MD [facility] Subjective Date/time seen: Date of service: 01/04/25 14:32 Interval history: Cardiology follow up visit 64-year-old man with suspected evidence of coronary disease with previous infarction. Once again patient is sleeping upon entering the room upon awakening he does not voice any cardiovascular concerns. Echocardiogram completed and reported as detailed in the chart. Exam Const: General: comfortable Other: Very debilitated elderly black male appears considerably older than his stated age not in any distress HENMT: Mouth: Yes moist mucous membranes Eyes: Sclera: sclerae normal Neck: Neck: supple Other: tracheostomy Resp: Other: Coarse rhonchi are noted centrally Cardio: Rate: regular rate Rhythm: regular rhythm Other: No audible murmur or gallop, difficult exam because of rhonchorous breath sounds GI: Auscultation: normal bowel sounds Skin: General skin exam: normal color Neuro: Other: Alert and responsive essentially nonverbal Extrem: Other: Status post left lower extremity amputation Objective Data Vital Signs Vital Signs: Vital Signs - 24 hr 01/03/25 15:07 01/03/25 15:07 01/03/25 15:15 Temperature Pulse Rate 97 97 Respiratory Rate 20 20 16 Blood Pressure Pulse Oximetry 93 96 Oxygen Delivery High Flow Therapy with Tr High Flow Therapy with Tr Oxygen Flow Rate 30 30 Fraction of Inspired Oxygen 21 21 01/03/25 15:16 01/03/25 15:23 01/03/25 16:02 Temperature 36.2 C L Pulse Rate 85 103 H 106 H Respiratory Rate 20 16 Blood Pressure 126/77 Pulse Oximetry 96 Oxygen Delivery Oxygen Flow Rate Fraction of Inspired Oxygen 01/03/25 16:40 01/03/25 20:00 01/03/25 20:00 Temperature 36.0 C L Pulse Rate 104 H 98 96 Respiratory Rate 18 Blood Pressure 115/73 Pulse Oximetry 97 Oxygen Delivery Oxygen Flow Rate Fraction of Inspired Oxygen 01/03/25 21:00 01/03/25 21:06 01/03/25 21:12 Temperature Pulse Rate 100 83 100 Respiratory Rate 16 16 16 Blood Pressure Pulse Oximetry 92 Oxygen Delivery High Flow Therapy with Tr Oxygen Flow Rate 31 Fraction of Inspired Oxygen 21 01/03/25 21:13 01/04/25 00:00 01/04/25 03:11 Temperature Pulse Rate 118 H 102 H Respiratory Rate 20 Blood Pressure Pulse Oximetry 92 Oxygen Delivery High Flow Therapy with Tr Oxygen Flow Rate 30 Fraction of Inspired Oxygen 21 01/04/25 03:19 01/04/25 04:00 01/04/25 04:31 Temperature 36.4 C Pulse Rate 100 102 H 104 H Respiratory Rate 20 18 Blood Pressure 150/85 H Pulse Oximetry 97 Oxygen Delivery Oxygen Flow Rate Fraction of Inspired Oxygen 01/04/25 08:00 01/04/25 08:00 01/04/25 08:41 Temperature Pulse Rate 100 108 H 92 Respiratory Rate 18 Blood Pressure Pulse Oximetry 97 Oxygen Delivery High Flow Therapy with Tr Oxygen Flow Rate 30 Fraction of Inspired Oxygen 21 01/04/25 08:55 01/04/25 09:24 01/04/25 12:00 Temperature Pulse Rate 105 H 100 100 Respiratory Rate Blood Pressure Pulse Oximetry Oxygen Delivery Oxygen Flow Rate Fraction of Inspired Oxygen 01/04/25 13:30 01/04/25 13:37 01/04/25 13:58 Temperature 36.5 C Pulse Rate 105 H 108 H 111 H Respiratory Rate 18 18 18 Blood Pressure 123/74 Pulse Oximetry 96 Oxygen Delivery Oxygen Flow Rate Fraction of Inspired Oxygen Intake/Output Intake/Output: Intake & Output 01/01/25 01/02/25 01/03/25 01/04/25 23:59 23:59 23:59 23:59 Intake Total 305 2150 250 Output Total 800 650 400 Balance -495 1500 -150 Meds/Results Medications: Active Medications Generic Name Dose Route Start Last Admin Trade Name Freq PRN Reason Stop Dose Admin Acetaminophen 650 mg 01/02/25 04:03 Acetaminophen 650 Mg Suppository RECTAL Q6H PRN Mild Pain (1-3) or Fever Acetaminophen 650 mg 01/02/25 08:21 Acetaminophen Elixir 325 Mg/10.15 Ml Udc FEED TUBE Q4H PRN Pain (Scale Score 1-3) Albuterol/Ipratropium 3 ml 01/02/25 08:00 01/04/25 13:34 Ipratropium 0.5 Mg/Albuterol Sulfate 2.5 Mg Ampul.Neb 3 Ml INHALATION 3 ml Q6HRT TERRELL Administration Amlodipine Besylate 5 mg 01/02/25 09:00 01/04/25 09:25 Amlodipine Besylate 5 Mg Tablet FEED TUBE 5 mg DAILY TERRELL Administration Aspirin 81 mg 01/02/25 09:00 01/04/25 09:26 Aspirin 81 Mg Chewable Tablet FEED TUBE 81 mg DAILY TERRELL Administration Atorvastatin Calcium 40 mg 01/02/25 21:00 01/03/25 21:24 Atorvastatin 40 Mg Tablet FEED TUBE 40 mg HS TERRELL Administration Bisacodyl 10 mg 01/02/25 08:21 Bisacodyl 10 Mg Suppository RECTAL DAILY PRN Constipation Calcium Carbonate 1,000 mg 01/02/25 08:30 Calcium Carbonate (Tums) 500 Mg (200 Mg Elemental) FEED TUBE Q6H PRN Heartburn Doxycycline Hyclate 100 mg 01/03/25 11:00 01/04/25 09:25 Doxycycline Hyclate 100 Mg Tablet FEED TUBE 100 mg Q12HR TERRELL Administration Finasteride 5 mg 01/02/25 09:00 01/04/25 09:25 Finasteride 5 Mg Tablet FEED TUBE 5 mg DAILY TERRELL Administration Folic Acid 1 mg 01/02/25 09:00 01/04/25 09:25 Folic Acid 1 Mg Tablet FEED TUBE 1 mg DAILY TERRELL Administration Glycopyrrolate 2 mg 01/02/25 20:00 01/04/25 13:31 Glycopyrrolate 1 Mg Tablet FEED TUBE 2 mg Q8HR TERRELL Administration Guaifenesin 300 mg 01/02/25 08:21 Guaifenesin 200 Mg/10 Ml Udc FEED TUBE Q12H PRN Cough Piperacillin Sod/Tazobactam 50 mls @ 100 mls/hr 01/02/25 12:20 01/04/25 13:24 Sod 3.375 gm/ Sodium Chloride IVPB Infused Q6HR TERRELL Infusion Lacosamide 250 mg/ Sodium 100 mls @ 200 mls/hr 01/03/25 09:00 01/04/25 09:57 Chloride IVPB Infused Q12HR TER[facility] Infusion Isosorbide Dinitrate 5 mg 01/02/25 15:00 01/04/25 13:31 Isosorbide Dinitrate 5 Mg Tablet FEED TUBE 5 mg TID TERRELL Administration Levetiracetam 2,000 mg 01/02/25 09:00 01/04/25 09:24 Levetiracetam Oral Amparo 500 Mg/5 Ml Udc FEED TUBE 2,000 mg BID TERRELL Administration Magnesium Citrate 300 ml 01/02/25 08:21 Magnesium Citrate 300 Ml Btl FEED TUBE DAILY PRN Constipation Magnesium Hydroxide 30 ml 01/02/25 08:21 Magnesium Hydroxide Susp 30 Ml Udc FEED TUBE HS PRN Constipation Metoclopramide HCl 10 mg 01/02/25 08:33 Metoclopramide Hcl 10 Mg/10 Ml Soln Udc FEED TUBE Q6H PRN nausea and vomiting Metoprolol Tartrate 25 mg 01/02/25 09:00 01/04/25 09:24 Metoprolol Tartrate 25 Mg Tablet FEED TUBE 25 mg BID TERRELL Administration Ondansetron HCl 4 mg 01/02/25 04:03 Ondansetron Inj 4 Mg/2 Ml Vial IV PUSH Q4H PRN Nausea Pantoprazole Sodium 40 mg 01/02/25 09:00 01/04/25 09:24 Pantoprazole Sodium Iv 40 Mg Vial IV PUSH 40 mg Q12HR TERRE[facility] Administration Polyethylene Glycol 17 gm 01/02/25 08:21 Polyethylene Glycol 3350 17 Gm Powd.Pack FEED TUBE DAILY PRN Constipation Senna 8.6 mg 01/02/25 09:00 01/04/25 09:24 Sennosides 8.6 Mg Tablet FEED TUBE 8.6 mg BID TERRELL Administration Thiamine HCl 100 mg 01/02/25 09:00 01/04/25 09:27 Thiamine Hcl 100 Mg Tablet FEED TUBE 100 mg DAILY TERRELL Administration Radiology Results: ITS Impressions Chest X-Ray 01/01/25 22:51 IMPRESSION: No focal infiltrate or effusion. Chest CTA 01/02/25 11:14 IMPRESSION: 1. Developing bilateral lower lobe airspace disease, consistent with pneumonia. No evidence for pulmonary embolism. Labs Labs: Laboratory Results - last 24 hr 01/03/25 01/03/25 01/04/25 17:07 23:59 04:38 POC Capillary Glucose 154 H 120 H 118 H 01/04/25 11:45 POC Capillary Glucose 129 H
--- NOTE | 2025-01-04 16:09 | PM.IMPN ---
Progress Note: A&P Assessment and Plan (1) Elevated troponin: Code(s): R79.89 - Other specified abnormal findings of blood chemistry Status: Acute (2) Chest pain: Code(s): R07.9 - Chest pain, unspecified Status: Acute (3) Tracheostomy in place: Code(s): Z93.0 - Tracheostomy status Status: Chronic (4) Gastroparesis: Code(s): K31.84 - Gastroparesis Status: Chronic (5) 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 (6) Benign prostatic hyperplasia: Qualifiers: Lower urinary tract symptom presence: symptoms present Lower urinary tract symptom detail: unspecified Qualified Code(s): N40.1 - Benign prostatic hyperplasia with lower urinary tract symptoms Code(s): N40.0 - Benign prostatic hyperplasia without lower urinary tract symptoms Status: Chronic (7) History of multiple strokes: Code(s): Z86.73 - Personal history of transient ischemic attack (TIA), and cerebral infarction without residual deficits Status: Chronic (8) Recurrent seizures: Code(s): G40.909 - Epilepsy, unspecified, not intractable, without status epilepticus Status: Acute (9) Aphasia: Code(s): R47.01 - Aphasia Status: Chronic (10) Chronic respiratory failure with hypoxia: Code(s): J96.11 - Chronic respiratory failure with hypoxia Status: Acute Plan Pneumonia, Status post tracheostomy with trach collar in place Hospital associated Possible gram negative, gram positive. Less likely viral or atypical Chest x-ray negative. CTA showed developing pneumonia. Has thick yellow secretions --Changed Vanc/Zosyn to Zosyn/Doxy, change to Unasyn/Doxy & monitor --Follow WBC --Trach care Chest pain Elevated troponin Troponin may be elevated 2/2 demand. Initial troponin was mildly elevated at 0.053 followed by 0.054 and 0.051 lipase was normal EKG anteroseptal ST elevation, sinus rhythm with occasional PVCs. Cardiology consulted and no indication for acute intervention. --Continue aspirin --Cardiology signed off, appreciate recommendations History of recurrent seizures--Continue AED's. Lacosamide, Levetiracetam BID Status post G-tube placement--Continue Tube feeds Gastroparesis History of multiple strokes with left-sided flaccidity aphasia dysphagia and seizures. Continue ASA Code status: full code Time Spent With Patient Time: 56 minutes Subjective Date/time seen: 01/04/25 16:09 Interval history: Afebrile, normotensive. HR elevated, 100-108 Cardiology signed off Reporting mouth pain, mild redness and irritation Review of Systems Review of Systems: Exam Narrative: GENERAL: Well-appearing, well-nourished, and in no acute distress. HEAD: Normocephalic, atraumatic. EYES: Non injected, non icteric ENT: Nares clear, no rhinorrhea or epistaxis. Trach with yellow secretions NECK: Supple. No meningismus. CHEST: Speaking in short sentences. No respiratory distress. HEART: Regular rate and rhythm. . ABDOMEN: Soft, nondistended. No rigidity or guarding. Not peritoneal EXTREMITIES: Normal range of motion. No lower extremity edema. SKIN: Warm, dry, no rash. NEURO: No focal deficits. Alert. Answering questions. Following commands. Normal speech without aphasia or dysarthria. PSYCH: Normal mood and affect Objective Data Vital Signs Vital Signs: Vital Signs - 24 hr 01/03/25 16:40 01/03/25 20:00 01/03/25 20:00 Temperature 96.8 F L Pulse Rate 104 H 98 96 Respiratory Rate 18 Blood Pressure 115/73 Pulse Oximetry 97 Oxygen Delivery Oxygen Flow Rate Fraction of Inspired Oxygen 01/03/25 21:00 01/03/25 21:06 01/03/25 21:12 Temperature Pulse Rate 100 83 100 Respiratory Rate 16 16 16 Blood Pressure Pulse Oximetry 92 Oxygen Delivery High Flow Therapy with Tr Oxygen Flow Rate 31 Fraction of Inspired Oxygen 21 01/03/25 21:13 01/04/25 00:00 01/04/25 03:11 Temperature Pulse Rate 118 H 102 H Respiratory Rate 20 Blood Pressure Pulse Oximetry 92 Oxygen Delivery High Flow Therapy with Tr Oxygen Flow Rate 30 Fraction of Inspired Oxygen 21 01/04/25 03:19 01/04/25 04:00 01/04/25 04:31 Temperature 97.6 F Pulse Rate 100 102 H 104 H Respiratory Rate 20 18 Blood Pressure 150/85 H Pulse Oximetry 97 Oxygen Delivery Oxygen Flow Rate Fraction of Inspired Oxygen 01/04/25 08:00 01/04/25 08:00 01/04/25 08:41 Temperature Pulse Rate 100 108 H 92 Respiratory Rate 18 Blood Pressure Pulse Oximetry 97 Oxygen Delivery High Flow Therapy with Tr Oxygen Flow Rate 30 Fraction of Inspired Oxygen 21 01/04/25 08:55 01/04/25 09:24 01/04/25 12:00 Temperature Pulse Rate 105 H 100 100 Respiratory Rate Blood Pressure Pulse Oximetry Oxygen Delivery Oxygen Flow Rate Fraction of Inspired Oxygen 01/04/25 13:30 01/04/25 13:37 01/04/25 13:58 Temperature 97.7 F Pulse Rate 105 H 108 H 111 H Respiratory Rate 18 18 18 Blood Pressure 123/74 Pulse Oximetry 96 Oxygen Delivery Oxygen Flow Rate Fraction of Inspired Oxygen 01/04/25 16:00 Temperature Pulse Rate 107 H Respiratory Rate Blood Pressure Pulse Oximetry Oxygen Delivery Oxygen Flow Rate Fraction of Inspired Oxygen Intake/Output Intake/Output: Intake & Output 01/01/25 01/02/25 01/03/25 01/04/25 23:59 23:59 23:59 23:59 Intake Total 305 2150 250 Output Total 111 969 4951 Balance -495 1500 -800 Meds/Results Medications: Active Medications Generic Name Dose Route Start Last Admin Trade Name Freq PRN Reason Stop Dose Admin Acetaminophen 650 mg 01/02/25 04:03 Acetaminophen 650 Mg Suppository RECTAL Q6H PRN Mild Pain (1-3) or Fever Acetaminophen 650 mg 01/02/25 08:21 Acetaminophen Elixir 325 Mg/10.15 Ml Udc FEED TUBE Q4H PRN Pain (Scale Score 1-3) Albuterol/Ipratropium 3 ml 01/02/25 08:00 01/04/25 13:34 Ipratropium 0.5 Mg/Albuterol Sulfate 2.5 Mg Ampul.Neb 3 Ml INHALATION 3 ml Q6HRT TERRELL Administration Amlodipine Besylate 5 mg 01/02/25 09:00 01/04/25 09:25 Amlodipine Besylate 5 Mg Tablet FEED TUBE 5 mg DAILY TERRELL Administration Aspirin 81 mg 01/02/25 09:00 01/04/25 09:26 Aspirin 81 Mg Chewable Tablet FEED TUBE 81 mg DAILY TERRELL Administration Atorvastatin Calcium 40 mg 01/02/25 21:00 01/03/25 21:24 Atorvastatin 40 Mg Tablet FEED TUBE 40 mg HS TERRELL Administration Bisacodyl 10 mg 01/02/25 08:21 Bisacodyl 10 Mg Suppository RECTAL DAILY PRN Constipation Calcium Carbonate 1,000 mg 01/02/25 08:30 Calcium Carbonate (Tums) 500 Mg (200 Mg Elemental) FEED TUBE Q6H PRN Heartburn Doxycycline Hyclate 100 mg 01/03/25 11:00 01/04/25 09:25 Doxycycline Hyclate 100 Mg Tablet FEED TUBE 100 mg Q12HR TERRELL Administration Finasteride 5 mg 01/02/25 09:00 01/04/25 09:25 Finasteride 5 Mg Tablet FEED TUBE 5 mg DAILY TERRELL Administration Folic Acid 1 mg 01/02/25 09:00 01/04/25 09:25 Folic Acid 1 Mg Tablet FEED TUBE 1 mg DAILY TERRELL Administration Glycopyrrolate 2 mg 01/02/25 20:00 01/04/25 13:31 Glycopyrrolate 1 Mg Tablet FEED TUBE 2 mg Q8HR [facility] Administration Guaifenesin 300 mg 01/02/25 08:21 Guaifenesin 200 Mg/10 Ml Udc FEED TUBE Q12H PRN Cough Piperacillin Sod/Tazobactam 50 mls @ 100 mls/hr 01/02/25 12:20 01/04/25 13:24 Sod 3.375 gm/ Sodium Chloride IVPB Infused Q6HR [facility] Infusion Lacosamide 250 mg/ Sodium 100 mls @ 200 mls/hr 01/03/25 09:00 01/04/25 09:57 Chloride IVPB Infused Q12HR [facility] Infusion Isosorbide Dinitrate 5 mg 01/02/25 15:00 01/04/25 13:31 Isosorbide Dinitrate 5 Mg Tablet FEED TUBE 5 mg TID TERRELL Administration Levetiracetam 2,000 mg 01/02/25 09:00 01/04/25 09:24 Levetiracetam Oral Amparo 500 Mg/5 Ml Udc FEED TUBE 2,000 mg BID TERRELL Administration Magnesium Citrate 300 ml 01/02/25 08:21 Magnesium Citrate 300 Ml Btl FEED TUBE DAILY PRN Constipation Magnesium Hydroxide 30 ml 01/02/25 08:21 Magnesium Hydroxide Susp 30 Ml Udc FEED TUBE HS PRN Constipation Metoclopramide HCl 10 mg 01/02/25 08:33 Metoclopramide Hcl 10 Mg/10 Ml Soln Udc FEED TUBE Q6H PRN nausea and vomiting Metoprolol Tartrate 25 mg 01/02/25 09:00 01/04/25 09:24 Metoprolol Tartrate 25 Mg Tablet FEED TUBE 25 mg BID TERRELL Administration Ondansetron HCl 4 mg 01/02/25 04:03 Ondansetron Inj 4 Mg/2 Ml Vial IV PUSH Q4H PRN Nausea Pantoprazole Sodium 40 mg 01/02/25 09:00 01/04/25 09:24 Pantoprazole Sodium Iv 40 Mg Vial IV PUSH 40 mg Q12HR TERRELL Administration Polyethylene Glycol 17 gm 01/02/25 08:21 Polyethylene Glycol 3350 17 Gm Powd.Pack FEED TUBE DAILY PRN Constipation Senna 8.6 mg 01/02/25 09:00 01/04/25 09:24 Sennosides 8.6 Mg Tablet FEED TUBE 8.6 mg BID TERRELL Administration Thiamine HCl 100 mg 01/02/25 09:00 01/04/25 09:27 Thiamine Hcl 100 Mg Tablet FEED TUBE 100 mg DAILY TERRELL Administration Radiology Results: ITS Impressions Chest X-Ray 01/01/25 22:51 IMPRESSION: No focal infiltrate or effusion. Chest CTA 01/02/25 11:14 IMPRESSION: 1. Developing bilateral lower lobe airspace disease, consistent with pneumonia. No evidence for pulmonary embolism. Labs Labs: Laboratory Results - last 24 hr 01/03/25 01/03/25 01/04/25 17:07 23:59 04:38 POC Capillary Glucose 154 H 120 H 118 H 01/04/25 11:45 POC Capillary Glucose 129 H Quality VTE Prophylaxis VTE prophylaxis: pharmacologic ordered Hospitalist [facility] Advance Care Plan I have confirmed that the patient's Advanced Care Plan is present, code status is documented, or surrogate decision maker is listed in patient medical record.: Yes Medication Reconciliation I have utilized all available resources to obtain, update and review the patients current medications (includes all prescriptions, OTC, herbals, cannabis, and nutritional supplements).: Yes
[2025-01-04] MEDS: LIDOCAINE 2% VISC SOLN 30 ML, ALUMINUM/MAGNESIUM/SIMETH SUSP 30 ML, diphenhydrAMINE HCl... PO ×2 (17:54→21:49)
[2025-01-04] MEDS: AMPICILLIN SODIUM/SULBACTAM 3 GM in SODIUM CHLORIDE 0.9% IV 100 ML 200 ML IVPB (18:04)
[2025-01-04 18:20] LABS: Anion Gap 10 mmol/L (4-12); Blood Urea Nitrogen 11 mg/dL (9-20); Calcium 8.9 mg/dL (8.4-10.2); Carbon Dioxide 24 mmol/L (22-30); Chloride 104 mmol/L (98-107); Estimated CRCL calculation 129 ml/min; Estimated Glomerular Filt Rate > 60; Glucose 117 mg/dL (65-110); Potassium 3.5 mmol/L (3.4-5.0); Sodium 138 mmol/L (137-145)
[2025-01-04 18:24] LABS: Hematocrit 33.8 % (42.0-52.0); Hemoglobin 11.1 g/dL (14.0-18.0); Immature Granulocyte Percent A 0.3 % (0-0.5); Lymphocytes Absolute Auto 1.52 K/mm3 (0.9-3.2); Mean Corpuscular HGB Conc 32.8 g/dl (32-36); Mean Corpuscular Hemoglobin 32.5 pg (26-34); Mean Corpuscular Volume 98.8 fl (80-100); Nucleated Red Blood Cells Absolute Auto 0.000 K/mm3 (0.0-0.012); Nucleated Red Blood Cells Perc 0.0 % (0.0-0.2); Platelet Count Result 216 k/mm3 (150-375); Red Blood Count 3.42 M/mm3 (4.6-6.20); White Blood Count 6.2 K/mm3 (4.5-10.0)
[2025-01-04] MEDS: VANCOMYCIN 1,750 MG/NS 500 ML 1,750 MG/500 ML BAG 250 MG IVPB (19:25)
[2025-01-04] MEDS: ATORVASTATIN 40 MG TABLET FEED TUBE (21:48)
[2025-01-05] VITALS (21 sets, daily range): BP systolic 143–152; BP diastolic 80–89; PULSE 90–107; RESP 16–20; TEMP 36.4–37.1; O2SAT 94–100
[2025-01-05] MEDS: AMPICILLIN SODIUM/SULBACTAM 3 GM in SODIUM CHLORIDE 0.9% IV 100 ML 200 ML IVPB ×5 (00:35→23:45)
[2025-01-05] MEDS: IPRATROPIUM 0.5 MG/ALBUTEROL SULFATE 2.5 MG AMPUL.NEB 3 ML INHALATION ×4 (02:17→21:12)
[2025-01-05 05:31] LABS: Estimated CRCL calculation 148 ml/min; Estimated Glomerular Filt Rate > 60
[2025-01-05] MEDS: ONDANSETRON INJ 4 MG/2 ML VIAL IV PUSH (06:17)
[2025-01-05] MEDS: GLYCOPYRROLATE 1 MG TABLET 2 MG FEED TUBE ×3 (06:17→20:43)
[2025-01-05] MEDS: LIDOCAINE 2% VISC SOLN 30 ML, ALUMINUM/MAGNESIUM/SIMETH SUSP 30 ML, diphenhydrAMINE HCl... PO ×5 (06:17→20:47)
[2025-01-05] MEDS: ACETAMINOPHEN ELIXIR 325 MG/10.15 ML UDC 650 MG FEED TUBE (06:18)
--- NOTE | 2025-01-05 07:02 | P.PNIM_ITS ---
Progress Note: A&P Assessment and Plan (1) Elevated troponin: Code(s): R79.89 - Other specified abnormal findings of blood chemistry Status: Acute (2) Chest pain: Code(s): R07.9 - Chest pain, unspecified Status: Acute (3) Tracheostomy in place: Code(s): Z93.0 - Tracheostomy status Status: Chronic (4) Gastroparesis: Code(s): K31.84 - Gastroparesis Status: Chronic (5) 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 (6) Benign prostatic hyperplasia: Qualifiers: Lower urinary tract symptom detail: unspecified Lower urinary tract symptom presence: symptoms present Qualified Code(s): N40.1 - Benign prostatic hyperplasia with lower urinary tract symptoms Code(s): N40.0 - Benign prostatic hyperplasia without lower urinary tract symptoms Status: Chronic (7) History of multiple strokes: Code(s): Z86.73 - Personal history of transient ischemic attack (TIA), and cerebral infarction without residual deficits Status: Chronic (8) Recurrent seizures: Code(s): G40.909 - Epilepsy, unspecified, not intractable, without status epilepticus Status: Acute (9) Aphasia: Code(s): R47.01 - Aphasia Status: Chronic (10) Chronic respiratory failure with hypoxia: Code(s): J96.11 - Chronic respiratory failure with hypoxia Status: Acute Plan Pneumonia Status post tracheostomy with trach collar in place Hospital associated Possible gram negative, gram positive. Less likely viral or atypical Chest x-ray negative. CTA showed developing pneumonia. Has thick yellow secretions --Changed Vanc/Zosyn to Zosyn/Doxy, change to Unasyn/Doxy & monitor --Follow WBC --Trach care Acute Chest pain Elevated troponin Chart hx afib Troponin may be elevated 2/2 demand. Initial troponin was mildly elevated at 0.053 followed by 0.054 and 0.051 lipase was normal EKG anteroseptal ST elevation, sinus rhythm with occasional PVCs. Echo showed evidence of old infarct/WMA's Cardiology consulted and no indication for acute intervention. Reporting chest pain & nausea --Continue aspirin --Cardiology signed off, appreciate recommendations, not a candidate for in tervention --Tylenol prn, lidocaine for pain. Morphine prn for breakthrough pain --Increase metoprolol from 25 bid to 37.5mg BID & titrate --Repeating EKG, troponin, nt-probnp today report of chest pain, nausea, and tachycardia --Nitro prn. Consider adding isosorbide if pain not resolving with rate control & topical lidocaine 01/04 TTE 1. Definity contrast injected to improve visualization. 2. Normal left ventricular size and overall good systolic function. 3. Akinesis of the apex and hypokinesis of the anteroseptal segment. 4. Trivial tricuspid valve regurgitation. Nausea Zofran prn Positive Blood cultures 01/02 blood cultures 1/2 Growing GPC. Blood cultures repeated prior to vancomycin dose --Has a history of MRSA --Continue IV Vancomycin pending cultures History of recurrent seizures--Continue AED's. Lacosamide, Levetiracetam BID Status post G-tube placement--Continue Tube feeds Gastroparesis History of multiple strokes with left-sided flaccidity aphasia dysphagia and s eizures. Continue ASA Code status: full code Time Spent With Patient Time: 59 minutes Subjective Date/time seen: 01/05/25 07:02 Interval history: Nausea, chest pain this morning. Tachycardic. Rechecking EKG, troponin, BNP Blood cultures growing GPC 1/2, repeat cultures pending Review of Systems Review of Systems: Exam Narrative: GENERAL: Well-appearing, well-nourished, and in no acute distress. HEAD: Normocephalic, atraumatic. EYES: Non injected, non icteric ENT: Nares clear, no rhinorrhea or epistaxis. Trach with yellow secretions NECK: Supple. No meningismus. CHEST: Speaking in short sentences. No respiratory distress. HEART: Regular rate and rhythm. . ABDOMEN: Soft, mildly distended. No rigidity or guarding. G-tube EXTREMITIES: Moves both extremities. Right leg amputation AKA. Left leg Prevalon boot, no wounds, dry skin SKIN: Warm, dry, no rash. NEURO: No focal deficits. Alert. Answering questions. Following commands. Oriented x2. Difficult to understand speech at times PSYCH: Normal mood and affect Objective Data Vital Signs Vital Signs: Vital Signs - 24 hr 01/04/25 08:00 01/04/25 08:00 01/04/25 08:41 Temperature Pulse Rate 100 108 H 92 Respiratory Rate 18 Blood Pressure Pulse Oximetry 97 Oxygen Delivery High Flow Therapy with Tr Oxygen Flow Rate 30 Fraction of Inspired Oxygen 21 01/04/25 08:55 01/04/25 09:24 01/04/25 12:00 Temperature Pulse Rate 105 H 100 100 Respiratory Rate Blood Pressure Pulse Oximetry Oxygen Delivery Oxygen Flow Rate Fraction of Inspired Oxygen 01/04/25 13:30 01/04/25 13:37 01/04/25 13:58 Temperature 97.7 F Pulse Rate 105 H 108 H 111 H Respiratory Rate 18 18 18 Blood Pressure 123/74 Pulse Oximetry 96 Oxygen Delivery Oxygen Flow Rate Fraction of Inspired Oxygen 01/04/25 16:00 01/04/25 17:54 01/04/25 19:43 Temperature 97.6 F Pulse Rate 107 H 107 H 98 Respiratory Rate 18 Blood Pressure 149/77 H Pulse Oximetry 99 Oxygen Delivery Oxygen Flow Rate Fraction of Inspired Oxygen 01/04/25 20:00 01/04/25 20:35 01/04/25 20:44 Temperature Pulse Rate 102 H 101 H 101 H Respiratory Rate 18 18 Blood Pressure Pulse Oximetry Oxygen Delivery Oxygen Flow Rate Fraction of Inspired Oxygen 01/04/25 20:55 01/04/25 21:50 01/05/25 00:00 Temperature Pulse Rate 107 H Respiratory Rate Blood Pressure Pulse Oximetry 100 100 Oxygen Delivery High Flow Therapy with Tr High Flow Therapy with Tr Oxygen Flow Rate 30 31 Fraction of Inspired Oxygen 21 21 01/05/25 02:19 01/05/25 02:28 01/05/25 03:18 Temperature 97.6 F Pulse Rate 102 H 104 H 101 H Respiratory Rate 18 Blood Pressure 152/89 H Pulse Oximetry 98 Oxygen Delivery Oxygen Flow Rate Fraction of Inspired Oxygen 01/05/25 04:00 Temperature Pulse Rate 98 Respiratory Rate Blood Pressure Pulse Oximetry Oxygen Delivery Oxygen Flow Rate Fraction of Inspired Oxygen Intake/Output Intake/Output: Intake & Output 01/02/25 01/03/25 01/04/25 01/05/25 23:59 23:59 23:59 23:59 Intake Total 305 2150 350 100 Output Total 848 208 1475 900 Balance -495 1500 -700 -800 Meds/Results Medications: Active Medications Generic Name Dose Route Start Last Admin Trade Name Freq PRN Reason Stop Dose Admin Acetaminophen 650 mg 01/02/25 04:03 Acetaminophen 650 Mg Suppository RECTAL Q6H PRN Mild Pain (1-3) or Fever Acetaminophen 650 mg 01/02/25 08:21 01/05/25 06:18 Acetaminophen Elixir 325 Mg/10.15 Ml Udc FEED TUBE 650 mg Q4H PRN Administration Pain (Scale Score 1-3) Albuterol/Ipratropium 3 ml 01/02/25 08:00 01/05/25 02:17 Ipratropium 0.5 Mg/Albuterol Sulfate 2.5 Mg Ampul.Neb 3 Ml INHALATION 3 ml Q6HRT TERRELL Administration Amlodipine Besylate 5 mg 01/02/25 09:00 01/04/25 09:25 Amlodipine Besylate 5 Mg Tablet FEED TUBE 5 mg DAILY TERRELL Administration Aspirin 81 mg 01/02/25 09:00 01/04/25 09:26 Aspirin 81 Mg Chewable Tablet FEED TUBE 81 mg DAILY TERRELL Administration Atorvastatin Calcium 40 mg 01/02/25 21:00 01/04/25 21:48 Atorvastatin 40 Mg Tablet FEED TUBE 40 mg HS TERRELL Administration Bisacodyl 10 mg 01/02/25 08:21 Bisacodyl 10 Mg Suppository RECTAL DAILY PRN Constipation Calcium Carbonate 1,000 mg 01/02/25 08:30 Calcium Carbonate (Tums) 500 Mg (200 Mg Elemental) FEED TUBE Q6H PRN Heartburn Lidocaine HCl 30 ml/ Al Hydrox 0 ml 01/04/25 17:00 01/05/25 06:17 /Mg Hydrox/Simethicone 30 ml/ PO 5 ml Diphenhydramine HCl 75 mg Q4HWA TERRELL Administration Finasteride 5 mg 01/02/25 09:00 01/04/25 09:25 Finasteride 5 Mg Tablet FEED TUBE 5 mg DAILY TERRELL Administration Folic Acid 1 mg 01/02/25 09:00 01/04/25 09:25 Folic Acid 1 Mg Tablet FEED TUBE 1 mg DAILY TERRELL Administration Glycopyrrolate 2 mg 01/02/25 20:00 01/05/25 06:17 Glycopyrrolate 1 Mg Tablet FEED TUBE 2 mg Q8HR TERRELL Administration Guaifenesin 300 mg 01/02/25 08:21 Guaifenesin 200 Mg/10 Ml Udc FEED TUBE Q12H PRN Cough Lacosamide 250 mg/ Sodium 100 mls @ 200 mls/hr 01/03/25 09:00 01/04/25 21:48 Chloride IVPB 200 mls/hr Q12HR TERRELL Administration Ampicillin Sodium/Sulbactam 100 mls @ 200 mls/hr 01/04/25 18:00 01/05/25 06:17 Sodium 3 gm/ Sodium Chloride IVPB 200 mls/hr Q6HR TERRELL Administration Vancomycin HCl 1,500 mg in 500 mls @ 250 mls/hr 01/05/25 07:00 Vancomycin 1,500 Mg/Ns 500 Ml IVPB Q12H TERRELL Isosorbide Dinitrate 5 mg 01/02/25 15:00 01/04/25 17:54 Isosorbide Dinitrate 5 Mg Tablet FEED TUBE 5 mg TID TERRELL Administration Levetiracetam 2,000 mg 01/02/25 09:00 01/04/25 17:54 Levetiracetam Oral Amparo 500 Mg/5 Ml Udc FEED TUBE 2,000 mg BID TERRELL Administration Magnesium Citrate 300 ml 01/02/25 08:21 Magnesium Citrate 300 Ml Btl FEED TUBE DAILY PRN Constipation Magnesium Hydroxide 30 ml 01/02/25 08:21 Magnesium Hydroxide Susp 30 Ml Udc FEED TUBE HS PRN Constipation Metoclopramide HCl 10 mg 01/02/25 08:33 Metoclopramide Hcl 10 Mg/10 Ml Soln Udc FEED TUBE Q6H PRN nausea and vomiting Metoprolol Tartrate 25 mg 01/02/25 09:00 01/04/25 17:54 Metoprolol Tartrate 25 Mg Tablet FEED TUBE 25 mg BID TERRELL Administration Ondansetron HCl 4 mg 01/02/25 04:03 01/05/25 06:17 Ondansetron Inj 4 Mg/2 Ml Vial IV PUSH 4 mg Q4H PRN Administration Nausea Pantoprazole Sodium 40 mg 01/02/25 09:00 01/04/25 21:49 Pantoprazole Sodium Iv 40 Mg Vial IV PUSH 40 mg Q12HR TERRELL Administration Polyethylene Glycol 17 gm 01/02/25 08:21 Polyethylene Glycol 3350 17 Gm Powd.Pack FEED TUBE DAILY PRN Constipation Senna 8.6 mg 01/02/25 09:00 01/04/25 17:54 Sennosides 8.6 Mg Tablet FEED TUBE 8.6 mg BID TERRELL Administration Thiamine HCl 100 mg 01/02/25 09:00 01/04/25 09:27 Thiamine Hcl 100 Mg Tablet FEED TUBE 100 mg DAILY TERRELL Administration Radiology Results: ITS Impressions Chest X-Ray 01/01/25 22:51 IMPRESSION: No focal infiltrate or effusion. Chest CTA 01/02/25 11:14 IMPRESSION: 1. Developing bilateral lower lobe airspace disease, consistent with pneumonia. No evidence for pulmonary embolism. Labs Labs: Laboratory Results - last 24 hr 01/04/25 01/04/25 01/04/25 11:45 17:10 17:19 WBC 6.2 RBC 3.42 L Hgb 11.1 L Hct 33.8 L MCV 98.8 MCH 32.5 MCHC 32.8 RDW 13.0 Plt Count 216 MPV 11.5 H Immature Gran % (Auto) 0.3 Neut % (Auto) 62.7 Lymph % (Auto) 24.6 Barnes % (Auto) 8.9 H Eos % (Auto) 3.2 Baso % (Auto) 0.3 Lymph # (Auto) 1.52 Barnes # (Auto) 0.6 Eos # (Auto) 0.2 Baso # (Auto) 0.0 Abs Immat Gran (auto) 0.02 Absolute Neuts (auto) 3.9 Absolute Nucleated RBC 0.000 Nucleated RBC % 0.0 Sodium 138 Potassium 3.5 Chloride 104 Carbon Dioxide 24 Anion Gap 10 BUN 11 D Creatinine 0.51 L Estim Creat Clear Calc 129 Estimated GFR > 60 Glucose 117 H POC Capillary Glucose 129 H 126 H Calcium 8.9 01/04/25 01/05/25 01/05/25 23:54 03:26 04:22 WBC RBC Hgb Hct MCV MCH MCHC RDW Plt Count MPV Immature Gran % (Auto) Neut % (Auto) Lymph % (Auto) Barnes % (Auto) Eos % (Auto) Baso % (Auto) Lymph # (Auto) Barnes # (Auto) Eos # (Auto) Baso # (Auto) Abs Immat Gran (auto) Absolute Neuts (auto) Absolute Nucleated RBC Nucleated RBC % Sodium Potassium Chloride Carbon Dioxide Anion Gap BUN Creatinine 0.44 L Estim Creat Clear Calc 148 Estimated GFR > 60 Glucose POC Capillary Glucose 109 H 123 H Calcium Quality VTE Prophylaxis VTE prophylaxis: pharmacologic ordered Hospitalist MIPS Advance Care Plan I have confirmed that the patient's Advanced Care Plan is present, code status is documented, or surrogate decision maker is listed in patient medical record.: Yes Medication Reconciliation The patient is not eligible for med reconciliation; the patient is in a emergent medical situation where delaying treatment would jeopardize the patients health.: Yes
[2025-01-05] MEDS: VANCOMYCIN 1,500 MG/NS 500 ML 1,500 MG/500 ML BAG 250 MG IVPB ×2 (08:19→17:59)
[2025-01-05] MEDS: METOPROLOL TARTRATE 25 MG TABLET FEED TUBE (08:33)
[2025-01-05] MEDS: ASPIRIN 81 MG CHEWABLE TABLET FEED TUBE (08:33)
[2025-01-05] MEDS: FINASTERIDE 5 MG TABLET FEED TUBE (08:33)
[2025-01-05] MEDS: SENNOSIDES 8.6 MG TABLET FEED TUBE ×2 (08:33→16:53)
[2025-01-05] MEDS: ISOSORBIDE DINITRATE 5 MG TABLET FEED TUBE ×3 (08:33→17:11)
[2025-01-05] MEDS: THIAMINE HCL 100 MG TABLET FEED TUBE (08:34)
[2025-01-05] MEDS: FOLIC ACID 1 MG TABLET FEED TUBE (08:34)
[2025-01-05] MEDS: levETIRAcetam ORAL SOL 500 MG/5 ML UDC 2000 MG FEED TUBE ×2 (08:38→16:52)
[2025-01-05] MEDS: PANTOPRAZOLE SODIUM IV 40 MG VIAL IV PUSH ×2 (08:38→20:47)
--- NOTE | 2025-01-05 09:06 | ECG_ITS ---
Test Date: 2025-01-05 09:42:54 Measurements Intervals [place] Rate: 99 P: 52 NE: 186 QRS: -31 QRSD: 94 T: 46 QT: 334 QTc: 430 Interpretive Statements SINUS RHYTHM WITH OCCASIONAL ECTOPIC PREMATURE COMPLEXES INFERIOR INFARCT, AGE INDETERMINATE ANTEROSEPTAL ST ELEVATION- CONSIDER OLD INFARCT WITH MURAL ANEURYSM ABNORMAL ECG Compared to ECG 01/02/2025 02:10:15 NO SIGNIFICANT CHANGE Electronically Signed On 01-05-2025 10:57:01 CDT by Dave Hernandez D.O.
[2025-01-05 09:58] LABS: Troponin I 0.017 ng/mL (0.000-0.034)
[2025-01-05 10:00] LABS: CRP 0.8 mg/dL (<1.0)
[2025-01-05 10:05] LABS: NT Pro B Type Natriuretic Pept 176 pg/mL (19.9-100)
[2025-01-05] MEDS: LIDOCAINE 5% PATCH 1 PATCH TRANSDERM (10:54)
[2025-01-05] MEDS: METOPROLOL TARTRATE 12.5 MG TABLET FEED TUBE (10:54)
[2025-01-05] MEDS: SODIUM CHLORIDE 0.9% IVPB ×2 (10:55→20:51)
[2025-01-05] MEDS: LACOSAMIDE IVPB ×2 (10:55→20:51)
[2025-01-05 13:07] LABS: Troponin I 0.016 ng/mL (0.000-0.034)
[2025-01-05] MEDS: METOPROLOL TARTRATE 12.5 MG TABLET 37.5 MG FEED TUBE (16:52)
[2025-01-05 17:25] LABS: Troponin I 0.013 ng/mL (0.000-0.034)
[2025-01-05] MEDS: ATORVASTATIN 40 MG TABLET FEED TUBE (20:43)
[2025-01-06] VITALS (19 sets, daily range): BP systolic 115–141; BP diastolic 63–75; PULSE 70–103; RESP 18–20; TEMP 36.4–36.5; O2SAT 95–100
[2025-01-06] MEDS: IPRATROPIUM 0.5 MG/ALBUTEROL SULFATE 2.5 MG AMPUL.NEB 3 ML INHALATION ×4 (01:53→19:50)
[2025-01-06] MEDS: AMPICILLIN SODIUM/SULBACTAM 3 GM in SODIUM CHLORIDE 0.9% IV 100 ML 200 ML IVPB ×2 (05:08→13:05)
[2025-01-06] MEDS: LIDOCAINE 2% VISC SOLN 30 ML, ALUMINUM/MAGNESIUM/SIMETH SUSP 30 ML, diphenhydrAMINE HCl... PO ×4 (05:08→21:18)
[2025-01-06] MEDS: GLYCOPYRROLATE 1 MG TABLET 2 MG FEED TUBE ×3 (05:08→21:16)
[2025-01-06 06:38] LABS: Hematocrit 33.8 % (42.0-52.0); Hemoglobin 10.7 g/dL (14.0-18.0); Immature Granulocyte Percent A 0.2 % (0-0.5); Lymphocytes Absolute Auto 1.91 K/mm3 (0.9-3.2); Mean Corpuscular HGB Conc 31.7 g/dl (32-36); Mean Corpuscular Hemoglobin 31.8 pg (26-34); Mean Corpuscular Volume 100.3 fl (80-100); Nucleated Red Blood Cells Absolute Auto 0.000 K/mm3 (0.0-0.012); Nucleated Red Blood Cells Perc 0.0 % (0.0-0.2); Platelet Count Result 187 k/mm3 (150-375); Red Blood Count 3.37 M/mm3 (4.6-6.20); White Blood Count 5.8 K/mm3 (4.5-10.0)
[2025-01-06 06:52] LABS: Anion Gap 5 mmol/L (4-12); Blood Urea Nitrogen 8 mg/dL (9-20); Calcium 8.9 mg/dL (8.4-10.2); Carbon Dioxide 25 mmol/L (22-30); Chloride 109 mmol/L (98-107); Estimated CRCL calculation 134 ml/min; Estimated Glomerular Filt Rate > 60; Glucose 109 mg/dL (65-110); Potassium 4.2 mmol/L (3.4-5.0); Sodium 139 mmol/L (137-145)
--- NOTE | 2025-01-06 07:23 | PM.IMPN ---
Progress Note: A&P Assessment and Plan (1) Elevated troponin: Code(s): R79.89 - Other specified abnormal findings of blood chemistry Status: Acute (2) Chest pain: Code(s): R07.9 - Chest pain, unspecified Status: Acute (3) Tracheostomy in place: Code(s): Z93.0 - Tracheostomy status Status: Chronic (4) Gastroparesis: Code(s): K31.84 - Gastroparesis Status: Chronic (5) 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 (6) Benign prostatic hyperplasia: Qualifiers: Lower urinary tract symptom detail: unspecified Lower urinary tract symptom presence: symptoms present Qualified Code(s): N40.1 - Benign prostatic hyperplasia with lower urinary tract symptoms Code(s): N40.0 - Benign prostatic hyperplasia without lower urinary tract symptoms Status: Chronic (7) History of multiple strokes: Code(s): Z86.73 - Personal history of transient ischemic attack (TIA), and cerebral infarction without residual deficits Status: Chronic (8) Recurrent seizures: Code(s): G40.909 - Epilepsy, unspecified, not intractable, without status epilepticus Status: Acute (9) Aphasia: Code(s): R47.01 - Aphasia Status: Chronic (10) Chronic respiratory failure with hypoxia: Code(s): J96.11 - Chronic respiratory failure with hypoxia Status: Acute Plan Pneumonia Status post tracheostomy with trach collar in place Hospital associated Possible gram negative, gram positive. Less likely viral or atypical Chest x-ray negative. CTA showed developing pneumonia. Has thick yellow secretions --Changed Vanc/Zosyn to Zosyn/Doxy, change to Unasyn/Doxy & monitor --Follow WBC --Trach care Acute Chest pain Elevated troponin Chart hx afib Troponin may be elevated 2/2 demand. Initial troponin was mildly elevated at 0.053 followed by 0.054 and 0.051 lipase was normal EKG anteroseptal ST elevation, sinus rhythm with occasional PVCs. Echo showed evidence of old infarct/WMA's Cardiology consulted and no indication for acute intervention. Reporting chest pain & nausea --Continue aspirin --Cardiology signed off, appreciate recommendations, not a candidate for intervention --Tylenol prn, lidocaine for pain. Morphine prn for breakthrough pain --Increase metoprolol from 25 bid to 37.5mg BID & titrate --Repeating EKG, troponin, nt-probnp today report of chest pain, nausea, and tachycardia --Nitro prn. Consider adding isosorbide if pain not resolving with rate control & topical lidocaine 01/04 TTE 1. Definity contrast injected to improve visualization. 2. Normal left ventricular size and overall good systolic function. 3. Akinesis of the apex and hypokinesis of the anteroseptal segment. 4. Trivial tricuspid valve regurgitation. Nausea Zofran prn Positive Blood cultures 01/02 blood cultures 1/2 Growing GPC. Blood cultures repeated prior to vancomycin dose --Has a history of MRSA --Continue IV Vancomycin pending cultures History of recurrent seizures--Continue AED's. Lacosamide, Levetiracetam BID Status post G-tube placement--Continue Tube feeds Gastroparesis History of multiple strokes with left-sided flaccidity aphasia dysphagia and seizures. Continue ASA Code status: full code Subjective Date/time seen: 01/06/25 07:23 Interval history: Nausea, chest pain this morning. Tachycardic. Rechecking EKG, troponin, BNP Blood cultures growing GPC 1/2, repeat cultures pending Review of Systems Review of Systems: Exam Narrative: GENERAL: Well-appearing, well-nourished, and in no acute distress. HEAD: Normocephalic, atraumatic. EYES: Non injected, non icteric ENT: Nares clear, no rhinorrhea or epistaxis. Trach with yellow secretions NECK: Supple. No meningismus. CHEST: Speaking in short sentences. No respiratory distress. HEART: Regular rate and rhythm. . ABDOMEN: Soft, mildly distended. No rigidity or guarding. G-tube EXTREMITIES: Moves both extremities. Right leg amputation AKA. Left leg Prevalon boot, no wounds, dry skin SKIN: Warm, dry, no rash. NEURO: No focal deficits. Alert. Answering questions. Following commands. Oriented x2. Difficult to understand speech at times PSYCH: Normal mood and affect Objective Data Vital Signs Vital Signs: Vital Signs - 24 hr 01/05/25 07:44 01/05/25 07:46 01/05/25 07:59 Temperature Pulse Rate 103 H 100 Respiratory Rate 16 16 Blood Pressure Pulse Oximetry 98 Oxygen Delivery High Flow Therapy with Tr Oxygen Flow Rate 30 Fraction of Inspired Oxygen 21 01/05/25 08:00 01/05/25 08:00 01/05/25 08:33 Temperature Pulse Rate 107 H 107 H 100 Respiratory Rate 16 Blood Pressure Pulse Oximetry 98 Oxygen Delivery High Flow Therapy with Tr Oxygen Flow Rate 31 Fraction of Inspired Oxygen 01/05/25 10:54 01/05/25 14:00 01/05/25 14:17 Temperature Pulse Rate 100 107 H 98 Respiratory Rate 16 Blood Pressure Pulse Oximetry Oxygen Delivery Oxygen Flow Rate Fraction of Inspired Oxygen 01/05/25 14:40 01/05/25 15:03 01/05/25 16:00 Temperature 98.8 F Pulse Rate 103 H 107 H 107 H Respiratory Rate 20 18 Blood Pressure 143/80 H Pulse Oximetry 94 Oxygen Delivery Oxygen Flow Rate Fraction of Inspired Oxygen 01/05/25 16:52 01/05/25 20:00 01/05/25 20:00 Temperature Pulse Rate 107 H 90 Respiratory Rate Blood Pressure Pulse Oximetry 100 Oxygen Delivery High Flow Therapy with Tr Oxygen Flow Rate 31 Fraction of Inspired Oxygen 21 01/05/25 21:12 01/05/25 21:26 01/05/25 21:31 Temperature Pulse Rate 103 H 103 H Respiratory Rate 20 20 Blood Pressure Pulse Oximetry 100 Oxygen Delivery High Flow Therapy with Tr Oxygen Flow Rate 30 Fraction of Inspired Oxygen 21 01/06/25 00:00 01/06/25 00:00 01/06/25 01:56 Temperature 97.7 F Pulse Rate 101 H 92 103 H Respiratory Rate 18 20 Blood Pressure 125/67 Pulse Oximetry 95 Oxygen Delivery Oxygen Flow Rate Fraction of Inspired Oxygen 01/06/25 02:01 01/06/25 04:00 01/06/25 06:13 Temperature 97.5 F L Pulse Rate 103 H 102 H 99 Respiratory Rate 20 18 Blood Pressure 141/75 H Pulse Oximetry 95 Oxygen Delivery Oxygen Flow Rate Fraction of Inspired Oxygen Intake/Output Intake/Output: Intake & Output 01/03/25 01/04/25 01/05/25 01/06/25 23:59 23:59 23:59 23:59 Intake Total 2150 350 1100 840 Output Total 650 1050 1700 900 Balance 1500 -700 -600 -60 Meds/Results Medications: Active Medications Generic Name Dose Route Start Last Admin Trade Name Freq PRN Reason Stop Dose Admin Acetaminophen 650 mg 01/02/25 04:03 Acetaminophen 650 Mg Suppository RECTAL Q6H PRN Mild Pain (1-3) or Fever Acetaminophen 650 mg 01/02/25 08:21 01/05/25 06:18 Acetaminophen Elixir 325 Mg/10.15 Ml Udc FEED TUBE 650 mg Q4H PRN Administration Pain (Scale Score 1-3) Albuterol/Ipratropium 3 ml 01/02/25 08:00 01/06/25 01:53 Ipratropium 0.5 Mg/Albuterol Sulfate 2.5 Mg Ampul.Neb 3 Ml INHALATION 3 ml Q6HRT TERRELL Administration Amlodipine Besylate 5 mg 01/02/25 09:00 01/05/25 08:34 Amlodipine Besylate 5 Mg Tablet FEED TUBE 5 mg DAILY TERRELL Administration Aspirin 81 mg 01/02/25 09:00 01/05/25 08:33 Aspirin 81 Mg Chewable Tablet FEED TUBE 81 mg DAILY TERRELL Administration Atorvastatin Calcium 40 mg 01/02/25 21:00 01/05/25 20:43 Atorvastatin 40 Mg Tablet FEED TUBE 40 mg HS TERRELL Administration Bisacodyl 10 mg 01/02/25 08:21 Bisacodyl 10 Mg Suppository RECTAL DAILY PRN Constipation Calcium Carbonate 1,000 mg 01/02/25 08:30 Calcium Carbonate (Tums) 500 Mg (200 Mg Elemental) FEED TUBE Q6H PRN Heartburn Lidocaine HCl 30 ml/ Al Hydrox 0 ml 01/04/25 17:00 01/06/25 05:08 /Mg Hydrox/Simethicone 30 ml/ PO 30 ml Diphenhydramine HCl 75 mg Q4HWA TERRELL Administration Finasteride 5 mg 01/02/25 09:00 01/05/25 08:33 Finasteride 5 Mg Tablet FEED TUBE 5 mg DAILY TERRELL Administration Folic Acid 1 mg 01/02/25 09:00 01/05/25 08:34 Folic Acid 1 Mg Tablet FEED TUBE 1 mg DAILY TERRELL Administration Glycopyrrolate 2 mg 01/02/25 20:00 01/06/25 05:08 Glycopyrrolate 1 Mg Tablet FEED TUBE 2 mg Q8HR TERRELL Administration Guaifenesin 300 mg 01/02/25 08:21 Guaifenesin 200 Mg/10 Ml Udc FEED TUBE Q12H PRN Cough Lacosamide 250 mg/ Sodium 100 mls @ 200 mls/hr 01/03/25 09:00 01/05/25 20:51 Chloride IVPB 200 mls/hr Q12HR TERRELL Administration Ampicillin Sodium/Sulbactam 100 mls @ 200 mls/hr 01/04/25 18:00 01/06/25 05:08 Sodium 3 gm/ Sodium Chloride IVPB 200 mls/hr Q6HR TERRELL Administration Vancomycin HCl 1,500 mg in 500 mls @ 250 mls/hr 01/05/25 07:00 01/05/25 17:59 Vancomycin 1,500 Mg/Ns 500 Ml IVPB 250 mls/hr Q12H TERRELL Administration Isosorbide Dinitrate 5 mg 01/02/25 15:00 01/05/25 17:11 Isosorbide Dinitrate 5 Mg Tablet FEED TUBE 5 mg TID TERRELL Administration Levetiracetam 2,000 mg 01/02/25 09:00 01/05/25 16:52 Levetiracetam Oral Amparo 500 Mg/5 Ml Udc FEED TUBE 2,000 mg BID TERRELL Administration Lidocaine 1 patch 01/05/25 09:00 01/05/25 10:54 Lidocaine 5% Patch TRANSDERM 01/13/25 08:59 1 patch DAILY TERRELL Administration Magnesium Citrate 300 ml 01/02/25 08:21 Magnesium Citrate 300 Ml Btl FEED TUBE DAILY PRN Constipation Magnesium Hydroxide 30 ml 01/02/25 08:21 Magnesium Hydroxide Susp 30 Ml Udc FEED TUBE HS PRN Constipation Metoclopramide HCl 10 mg 01/02/25 08:33 Metoclopramide Hcl 10 Mg/10 Ml Soln Udc FEED TUBE Q6H PRN nausea and vomiting Metoprolol Tartrate 37.5 mg 01/05/25 17:00 01/05/25 16:52 Metoprolol Tartrate 12.5 Mg Tablet FEED TUBE 37.5 mg BID TERRELL Administration Morphine Sulfate 2 mg 01/05/25 09:07 Morphine Sulfate (*Crx) 2 Mg/Ml Inj IV PUSH Q4H PRN Pain Rated 7-10 Nitroglycerin 0.4 mg 01/05/25 09:39 Nitroglycerin Sl 0.4 Mg Tablet SUBLINGUAL Q5MIN PRN Angina Ondansetron HCl 4 mg 01/02/25 04:03 01/05/25 06:17 Ondansetron Inj 4 Mg/2 Ml Vial IV PUSH 4 mg Q4H PRN Administration Nausea Pantoprazole Sodium 40 mg 01/02/25 09:00 01/05/25 20:47 Pantoprazole Sodium Iv 40 Mg Vial IV PUSH 40 mg Q12HR TERRELL Administration Polyethylene Glycol 17 gm 01/02/25 08:21 Polyethylene Glycol 3350 17 Gm Powd.Pack FEED TUBE DAILY PRN Constipation Senna 8.6 mg 01/02/25 09:00 01/05/25 16:53 Sennosides 8.6 Mg Tablet FEED TUBE 8.6 mg BID TERRELL Administration Thiamine HCl 100 mg 01/02/25 09:00 01/05/25 08:34 Thiamine Hcl 100 Mg Tablet FEED TUBE 100 mg DAILY TERRELL Administration Radiology Results: ITS Impressions Chest X-Ray 01/01/25 22:51 IMPRESSION: No focal infiltrate or effusion. Chest CTA 01/02/25 11:14 IMPRESSION: 1. Developing bilateral lower lobe airspace disease, consistent with pneumonia. No evidence for pulmonary embolism. Labs Labs: Laboratory Results - last 24 hr 01/05/25 01/05/25 01/05/25 09:29 11:48 12:21 WBC RBC Hgb Hct MCV MCH MCHC RDW Plt Count MPV Immature Gran % (Auto) Neut % (Auto) Lymph % (Auto) [place] % (Auto) Eos % (Auto) Baso % (Auto) Lymph # (Auto) [place] # (Auto) Eos # (Auto) Baso # (Auto) Abs Immat Gran (auto) Absolute Neuts (auto) Absolute Nucleated RBC Nucleated RBC % ESR 79 H Sodium Potassium Chloride Carbon Dioxide Anion Gap BUN Creatinine Estim Creat Clear Calc Estimated GFR Glucose POC Capillary Glucose 129 H Lactic Acid 2.3 H 1.2 Calcium Troponin I 0.017 0.016 C-Reactive Protein 0.8 NT-Pro-B Natriuret Pep 176 H 01/05/25 01/05/25 01/05/25 16:51 18:09 23:47 WBC RBC Hgb Hct MCV MCH MCHC RDW Plt Count MPV Immature Gran % (Auto) Neut % (Auto) Lymph % (Auto) [place] % (Auto) Eos % (Auto) Baso % (Auto) Lymph # (Auto) [place] # (Auto) Eos # (Auto) Baso # (Auto) Abs Immat Gran (auto) Absolute Neuts (auto) Absolute Nucleated RBC Nucleated RBC % ESR Sodium Potassium Chloride Carbon Dioxide Anion Gap BUN Creatinine Estim Creat Clear Calc Estimated GFR Glucose POC Capillary Glucose 127 H 118 H Lactic Acid Calcium Troponin I 0.013 C-Reactive Protein NT-Pro-B Natriuret Pep 01/06/25 01/06/25 05:53 06:30 WBC 5.8 RBC 3.37 L Hgb 10.7 L Hct 33.8 L MCV 100.3 H MCH 31.8 MCHC 31.7 L RDW 12.9 Plt Count 187 MPV 11.4 H Immature Gran % (Auto) 0.2 Neut % (Auto) 54.7 Lymph % (Auto) 32.8 [place] % (Auto) 8.6 H Eos % (Auto) 3.4 Baso % (Auto) 0.3 Lymph # (Auto) 1.91 [place] # (Auto) 0.5 Eos # (Auto) 0.2 Baso # (Auto) 0.0 Abs Immat Gran (auto) 0.01 Absolute Neuts (auto) 3.2 Absolute Nucleated RBC 0.000 Nucleated RBC % 0.0 ESR Sodium 139 Potassium 4.2 Chloride 109 H Carbon Dioxide 25 Anion Gap 5 BUN 8 L Creatinine 0.50 L Estim Creat Clear Calc 134 Estimated GFR > 60 Glucose 109 POC Capillary Glucose 111 H Lactic Acid Calcium 8.9 Troponin I C-Reactive Protein NT-Pro-B Natriuret Pep Quality VTE Prophylaxis VTE prophylaxis: pharmacologic ordered
[2025-01-06] MEDS: SODIUM CHLORIDE 0.9% IVPB (08:34)
[2025-01-06] MEDS: LACOSAMIDE IVPB (08:34)
[2025-01-06] MEDS: ACETAMINOPHEN ELIXIR 325 MG/10.15 ML UDC 650 MG FEED TUBE (08:35)
[2025-01-06] MEDS: METOPROLOL TARTRATE 12.5 MG TABLET 37.5 MG FEED TUBE ×2 (08:36→17:47)
[2025-01-06] MEDS: levETIRAcetam ORAL SOL 500 MG/5 ML UDC 2000 MG FEED TUBE ×2 (08:36→17:48)
[2025-01-06] MEDS: ASPIRIN 81 MG CHEWABLE TABLET FEED TUBE (08:37)
[2025-01-06] MEDS: PANTOPRAZOLE SODIUM IV 40 MG VIAL IV PUSH (08:37)
[2025-01-06] MEDS: FOLIC ACID 1 MG TABLET FEED TUBE (08:37)
[2025-01-06] MEDS: ISOSORBIDE DINITRATE 5 MG TABLET FEED TUBE ×3 (08:37→17:47)
[2025-01-06] MEDS: THIAMINE HCL 100 MG TABLET FEED TUBE (08:37)
[2025-01-06] MEDS: FINASTERIDE 5 MG TABLET FEED TUBE (08:37)
[2025-01-06] MEDS: SENNOSIDES 8.6 MG TABLET FEED TUBE ×2 (08:37→17:47)
[2025-01-06] MEDS: LIDOCAINE 5% PATCH 1 PATCH TRANSDERM (08:37)
[2025-01-06] MEDS: VANCOMYCIN 2,000 MG/NS 500 ML 2,000 MG/500 ML BAG 250 MG IVPB (09:56)
--- NOTE | 2025-01-06 16:42 | P.DS_ITS ---
DS: Admitting Diagnosis Discharge Date 01/06/2025 Admitting Diagnosis Acute chest pain Elevated troponin DS: Discharge Diagnosis Discharge Diagnosis (1) Non-ST elevation SC (NSTEMI): Code(s): I21.4 - Non-ST elevation (NSTEMI) myocardial infarction Status: Acute (2) Pneumonia: Code(s): J18.9 - Pneumonia, unspecified organism Status: Acute (3) Elevated troponin: Code(s): R79.89 - Other specified abnormal findings of blood chemistry Status: Acute (4) Non-cardiac chest pain: Code(s): R07.89 - Other chest pain Status: Acute DS: Summary Hospital Course Reason for hospitalization: Copied from [facility] 01/02: This is a 64-year-old male who is a senior care resident presents to the ER with complaint of chest pain that was reported by the patient. He has does not verbalize months so most of the history is taken from medical records. In ED evaluation knee was not in acute distress. He was on a Venturi mask. Laboratory evaluation showed WBC of 8.0 hemoglobin of 12.7 platelet of 263. Chem panel showed sodium of 133 potassium 3.9 chloride 100 bicarbonate 27 BUN 16 creatinine 0.5 blood glucose of 104 initial troponin was mildly elevated at 0.053 followed by 0.054 and 0.051 lipase was normal. EKG showed sinus rhythm with occasional PVCs. Anteroseptal ST-elevation was noted which looks similar to previous EKGs. He was admitted for further evaluation and management. No further history could be obtained from the patient Hospital Course: Pneumonia Hospital associated Status post tracheostomy with trach collar in place Possible gram negative, gram positive. Less likely viral or atypical Chest x-ray negative. 01/02 CTA showed developing pneumonia. Secretions improving during admission Started Zosyn/Vanc to Zosyn/Doxy, changed to Unasyn/Doxy and continued to improve. Switched doxy back to Vancomycin since blood culture growing GPC but resume doxy for discharge since blood culture a contaminant WBC upt to 10.2 11/24, 5.8 at discharge. Lungs clear, improving secretions --Continue A[place]in/Doxy per feeding tube x3 more days --continue trach/oral care q4 hours Acute Chest pain Elevated troponin Chart hx afib. Troponin may be elevated 2/2 demand. Initial troponin was mildly elevated at 0.053 followed by 0.054 and 0.051 lipase was normal EKG anteroseptal ST elevation, sinus rhythm with occasional PVCs. Echo showed evidence of old infarct/WMA's Cardiology consulted and not a candidate for intervention. Patient again reported chest pain & nausea 01/04 but troponin negative x3 and noncardiac. Nt-proBNP improved Continued aspirin. --Continue aspirin --Tylenol prn, lidocaine for pain. Morphine prn for breakthrough pain --Increase metoprolol from 25 bid to 37.5mg BID, titrate outpatient if needed --Can consider increasing isosorbide if pain not resolved with rate control & topical lidocaine 01/04 TTE 1. Definity contrast injected to improve visualization. 2. Normal left ventricular size and overall good systolic function. 3. Akinesis of the apex and hypokinesis of the anteroseptal segment. 4. Trivial tricuspid valve regurgitation. Nausea Zofran prn Positive Blood cultures 01/02 blood cultures 1/2 Growing GPC,finalized staph epi. Blood cultures repeated prior to vancomycin dose and no growth at discharge. Has a history of MRSA. Continued IV Vancomycin pending cultures. Stopped Vancomycin since blood cultures consistent with contamination. Final blood cultures 01/04 pending--no growth reported at 48 hours History of recurrent seizures--Continue AED's. Lacosamide, Levetiracetam BID Status post G-tube placement--Continued Tube feeds & flushes Gastroparesis History of multiple strokes with left-sided weakness, aphasia dysphagia and seizures. Continue ASA Status at Discharge Cognitive/behavioral status at discharge: A&Ox1, intermittently verbalizes Time Spent with Patient Time attestation: Total time spent providing and/or coordinating discharge services: 57 minutes DS: Data Data Completed and Pending Labs on day of discharge: Labs from last 24 hours 01/06/25 01/06/25 01/06/25 11:48 06:30 05:53 WBC 5.8 RBC 3.37 L Hgb 10.7 L Hct 33.8 L MCV 100.3 H MCH 31.8 MCHC 31.7 L RDW 12.9 Plt Count 187 MPV 11.4 H Immature Gran % (Auto) 0.2 Neut % (Auto) 54.7 Lymph % (Auto) 32.8 [place] % (Auto) 8.6 H Eos % (Auto) 3.4 Baso % (Auto) 0.3 Lymph # (Auto) 1.91 [place] # (Auto) 0.5 Eos # (Auto) 0.2 Baso # (Auto) 0.0 Abs Immat Gran (auto) 0.01 Absolute Neuts (auto) 3.2 Absolute Nucleated RBC 0.000 Nucleated RBC % 0.0 Sodium 139 Potassium 4.2 Chloride 109 H Carbon Dioxide 25 Anion Gap 5 BUN 8 L Creatinine 0.50 L Estim Creat Clear Calc 134 Estimated GFR > 60 Glucose 109 POC Capillary Glucose 87 111 H Calcium 8.9 Troponin I Vancomycin Trough 11.0 01/05/25 01/05/25 01/05/25 23:47 18:09 16:51 WBC RBC Hgb Hct MCV MCH MCHC RDW Plt Count MPV Immature Gran % (Auto) Neut % (Auto) Lymph % (Auto) [place] % (Auto) Eos % (Auto) Baso % (Auto) Lymph # (Auto) [place] # (Auto) Eos # (Auto) Baso # (Auto) Abs Immat Gran (auto) Absolute Neuts (auto) Absolute Nucleated RBC Nucleated RBC % Sodium Potassium Chloride Carbon Dioxide Anion Gap BUN Creatinine Estim Creat Clear Calc Estimated GFR Glucose POC Capillary Glucose 118 H 127 H Calcium Troponin I 0.013 Vancomycin Trough Preliminary micro results at discharge 01/02/25 16:35 Blood Culture - Preliminary Blood Discharge Plan Discharge Attending physician on discharge: Yudith Damian Consulting providers: Yudith Damian; Chai Lentz Discharging Clinician: Yudith Damian Anticipated Discharge Date/Time: 01/06/25 16:32 Patient Disposition: NH Retirement/Asst Living Activity: september shower Diet: NPO Discharge Instructions: Resume tube feedings and flushes 3 more days of Augmentin/Doxycycline for pneumonia Continue trach care, humidified oxygen per trach Turn q2, cushioned boot for foot drop Patient Instructions: Antibiotic Form, Chest Pain (DC), Community Acquired Pneumonia (DC) Patient Language: Ukrainian Stand Alone Forms: General Discharge Information Follow-up/Referrals: Tay Arroyo [Other] - 2 Weeks Discharge Medications: New doxycycline hyclate 100 mg capsule 100 mg feeding tube BID 3 Days Qty: 6 0RF lidocaine [Lidoderm] 5 % Adhesive Patch,Medicated 1 patch transdermal DAILY Qty: 30 0RF omeprazole 40 mg capsule,delayed release(DR/EC) 40 mg feeding tube DAILY Qty: 30 0RF amoxicillin-pot clavulanate 250-62.5 mg/5 mL suspension for reconstitution 10 ml feeding tube Q8H 3 Days Qty: 90 0RF Continued bisacodyl 10 mg Suppository 10 mg RECTAL DAILY PRN (Reason: Constipation) Rx Instructions: if no results for MOM sennosides [senna] 8.6 mg Tablet 8.6 mg feeding tube BID guaifenesin 100 mg/5 mL liquid 300 mg feeding tube Q12H PRN (Reason: Cough) magnesium hydroxide [Milk of Magnesia] 400 mg/5 mL Suspension 30 ml feeding tube HS PRN (Reason: Constipation) Rx Instructions: If no BM in 3 days metoclopramide HCl [Reglan] 10 mg tablet 10 mg feeding tube Q6H PRN (Reason: nausea and vomiting) Qty: 30 0RF polyethylene glycol 3350 17 gram/dose powder 17 g feeding tube DAILY PRN (Reason: Constipation) atorvastatin 40 mg tablet 40 mg feeding tube HS ipratropium-albuterol 0.5 mg-3 mg(2.5 mg base)/3 mL solution for nebulization 3 ml INHALATION Q6H PRN (Reason: Shortness Of Breath) thiamine HCl (vitamin B1) 100 mg Tablet 100 mg feeding tube DAILY magnesium citrate [Citroma] Solution 296 ml feeding tube DAILY PRN (Reason: Constipation) Rx Instructions: if no results from enema folic acid 1 mg tablet 1 mg feeding tube DAILY calcium carbonate 500 mg/5 mL (1,250 mg/5 mL) Suspension 1,250 mg feeding tube Q6H PRN (Reason: Heartburn) aspirin 81 mg Tablet,Chewable 81 mg feeding tube DAILY acetaminophen 650 mg/20.3 mL Suspension 650 mg feeding tube Q4H PRN (Reason: Pain (Scale Score 1-3)) finasteride 5 mg tablet 5 mg feeding tube DAILY glycopyrrolate 2 mg tablet 2 mg feeding tube Q8H ondansetron HCl 4 mg tablet 4 mg feeding tube Q6H PRN (Reason: nausea and vomiting) amlodipine [Norvasc] 5 mg Tablet 5 mg feeding tube DAILY 30 Days Qty: 30 1RF isosorbide dinitrate 5 mg Tablet 5 mg feeding tube TID 30 Days Qty: 90 1RF levetiracetam 100 mg/mL solution 2,000 mg feeding tube BID 30 Days Qty: 0 1RF lacosamide 10 mg/mL solution 250 mg feeding tube BID 30 Days Qty: 200 2RF Changed metoprolol tartrate 25 mg tablet 37.5 mg feeding tube BID Qty: 60 0RF Discontinued metoclopramide HCl 10 mg tablet 10 mg feeding tube Q6H PRN (Reason: nausea and vomiting) pantoprazole 40 mg tablet,delayed release (DR/EC) 40 mg PO Q12H Date of admission: 01/03/25 10:30 Primary Care Provider: Tay Arroyo Admitting Provider: Rachel Roach Attending physician on admission: Rachel Roach Condition: Stable Hospitalist MIPS Heart Failure (Exclusion) Patient has history of Heart Transplant or Left Ventricular Assistive Device?: No IF YES, STOP HERE Heart Failure (Qualifier) Patient has current or prior documentation of LVEF less than or equal to 40%, or mod/servere depressed LVSF?: No IF NO, STOP HERE
--- NOTE | 2025-01-06 18:56 | PC.NURSE ---
Gave report to Olivia SIMON at [facility]
[2025-01-06] MEDS: ATORVASTATIN 40 MG TABLET FEED TUBE (21:16)
[2025-01-07 01:30] VITALS: PULSE 91; RESP 20
[2025-01-07] MEDS: IPRATROPIUM 0.5 MG/ALBUTEROL SULFATE 2.5 MG AMPUL.NEB 3 ML INHALATION (01:30)
[2025-01-07 01:34] VITALS: PULSE 91; RESP 20; O2SAT 99
[2025-01-07 05:10] VITALS: BP 142/79; PULSE 101; RESP 18; TEMP 36.2; O2SAT 95
[2025-01-07 05:47] LABS: Anion Gap 6 mmol/L (4-12); Blood Urea Nitrogen 9 mg/dL (9-20); Calcium 9.0 mg/dL (8.4-10.2); Carbon Dioxide 23 mmol/L (22-30); Chloride 107 mmol/L (98-107); Estimated CRCL calculation 147 ml/min; Estimated Glomerular Filt Rate > 60; Glucose 106 mg/dL (65-110); Potassium 4.0 mmol/L (3.4-5.0); Sodium 136 mmol/L (137-145)
[2025-01-07] MEDS: GLYCOPYRROLATE 1 MG TABLET 2 MG FEED TUBE (06:20)
[2025-01-07 06:28] LABS: Hematocrit 37.7 % (42.0-52.0); Hemoglobin 11.8 g/dL (14.0-18.0); Immature Granulocyte Percent A 0.1 % (0-0.5); Lymphocytes Absolute Auto 2.02 K/mm3 (0.9-3.2); Mean Corpuscular HGB Conc 31.3 g/dl (32-36); Mean Corpuscular Hemoglobin 31.6 pg (26-34); Mean Corpuscular Volume 101.1 fl (80-100); Nucleated Red Blood Cells Absolute Auto 0.000 K/mm3 (0.0-0.012); Nucleated Red Blood Cells Perc 0.0 % (0.0-0.2); Platelet Count Result 212 k/mm3 (150-375); Red Blood Count 3.73 M/mm3 (4.6-6.20); White Blood Count 8.0 K/mm3 (4.5-10.0)
[2025-01-07] MEDS: LIDOCAINE 2% VISC SOLN 30 ML, ALUMINUM/MAGNESIUM/SIMETH SUSP 30 ML, diphenhydrAMINE HCl... PO ×2 (06:43→07:53)
[2025-01-07 07:48] VITALS: PULSE 88
[2025-01-07] MEDS: SENNOSIDES 8.6 MG TABLET FEED TUBE (07:48)
[2025-01-07] MEDS: ASPIRIN 81 MG CHEWABLE TABLET FEED TUBE (07:48)
[2025-01-07] MEDS: METOPROLOL TARTRATE 12.5 MG TABLET 37.5 MG FEED TUBE (07:48)
[2025-01-07] MEDS: levETIRAcetam ORAL SOL 500 MG/5 ML UDC 2000 MG FEED TUBE (07:48)
[2025-01-07] MEDS: FOLIC ACID 1 MG TABLET FEED TUBE (07:49)
[2025-01-07] MEDS: ISOSORBIDE DINITRATE 5 MG TABLET FEED TUBE (07:49)
[2025-01-07] MEDS: FINASTERIDE 5 MG TABLET FEED TUBE (07:49)
[2025-01-07] MEDS: THIAMINE HCL 100 MG TABLET FEED TUBE (07:49)
[2025-01-07 08:00] VITALS: O2SAT 96
[2025-01-07] MEDS: LACOSAMIDE IVPB (09:10)
[2025-01-07] MEDS: SODIUM CHLORIDE 0.9% IVPB (09:10)
== END 2025-01-07 11:18 | DRG 190 ==
LOC: ANHED 01-02 04:51 → ANHIMU 01-02 05:10 → ANH2MED 01-04 11:33 → ANHIMU 01-08 14:45
PROVIDERS: Internal Medicine; Admitting Provider Internal Medicine; Emergency Provider Student in an Organized Health Care Education/Training Program; Visit Provider Nurse Practitioner Acute Care
DX: I21.4 Non-ST elevation (NSTEMI) myocardial infarction (principal); J18.9 Pneumonia, unspecified organism; R07.9 Chest pain, unspecified; I24.89 Other forms of acute ischemic heart disease; J96.11 Chronic respiratory failure with hypoxia; I48.20 Chronic atrial fibrillation, unspecified; K31.84 Gastroparesis; N40.0 Benign prostatic hyperplasia without lower urinary tract symptoms; G40.909 Epilepsy, unspecified, not intractable, without status epilepticus; Y95 Nosocomial condition; I69.320 Aphasia following cerebral infarction; I69.391 Dysphagia following cerebral infarction; I69.354 Hemiplegia and hemiparesis following cerebral infarction affecting left non-dominant side; Z93.0 Tracheostomy status; Z93.1 Gastrostomy status; Z89.612 Acquired absence of left leg above knee; Z86.718 Personal history of other venous thrombosis and embolism; Z79.82 Long term (current) use of aspirin; Z74.01 Bed confinement status
CPT/HCPCS: 36415; 71045; 71275; 80048; 80053; 80202; 82565; 82948; 83605; 83690; 83880; 84145; 84484; 85025; 85610; 85652; 85730; 86140; 87040; 87641; 93005; 94640; 96361; 96365; 96374; 96375; 99285; A9270; C8929; C9254; G0378; G0379; J0295; J2405; J2470; J2543; J3373; Q9957; Q9967

== ENCOUNTER 2025-01-11 13:29 | Emergency (ER) | payer OTHER, SELFPAY ==
[2025-01-11 13:31] VITALS: BP 124/78; PULSE 92; RESP 16; TEMP 36.6; O2SAT 98
[2025-01-11 13:36] VITALS: O2SAT 98
--- NOTE | 2025-01-11 14:06 | PC.NURSE ---
Went to get pt labs and pt denies. states no poke when asking. CLarified with patient that he did not want blood work and he shook head yes.
--- OUTSIDE RECORDS SUMMARY | 2025-01-11 14:12 | XMS_ITS | Encounter Summary ---
Author Organization [facility] Health Address [address] [place] [address] Care Team Providers Care Photocomposing Machine Operator Name Role Phone Elizabeth Sullivan RN Unavailable [phone] Jack Arroyo MD Primary Care Provider Rosie marsh Reason for Visit * Reason Onset Date Comments Appointment 11/05/2024 Encounter Details Date Type Department Care Team (Late st Contact Info) Description 11/05/2024 Telephone [facility] - Centralized Scheduling [address] [place] [address] Alden Hurtado MD [address] [place] [address] Appointment Social History Tobacco Use Types Packs/Day [...] and heating? Not hard at all 08/06/2024 [facility] [place] [facility] Occupat ional Health - Occupational Stress [...] slept in a alf (including now)? No 06/19/2023 Housing Stability Vital [...] living in a alf (including now)? No 08/06/2024 Sex and Gender Information Value Date Recorded Sex Assigned at Not on file Legal Sex Male 5:07 PM EDUCATION OFFICER Gender Identity Not on file Sexual Orientation [...] Bi Tabor With Provider: Alden Hurtado MD [[facility] - ENT] Preferred Date Range: 11/20/2024 - 11/26/2024 Preferred Times: Tuesday Morning, Tuesday Afternoon, Tuesday Morning, Tuesday Afternoon, Morning, Afternoon Reason for visit: evaluate trachea; swallow test Health Maintenance Topic: Comments: perform. swallow test documented in this encounter Plan of Treatment Upcoming Encounters Date Type Department Care Team (Late st Contact Info) Description 01/14/2025 2:00 PM CDT Office Visit [facility] - GI [address] [place] [address] 01/18/2025 1:00 PM CDT Appointment [facility] DIAGNOSTIC RAD [address] [place] [address] Alden Hurtado MD [address] [place] [address] 01/18/2025 1:00 PM CDT Office Visit [facility] - ENT [address] [facility], [place] [phone] Marcella Green, DIGITAL MARKETING PROGRAM MANAGER [address] [place] [address] 03/06/2025 10:00 AM CDT Office Visit [facility] - Neurology [address] [facility], [place] [phone] Saloni King, DIRECTOR OF RETAIL MERCHANDISING-CORE FEEDER [address] [place] [address] documented as of this encounter Visit Diagnoses Not on filedocumented in this encounter Additional Health Concerns Infection Onset Date Last Indicated Resolved Time 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 Source: [facility]. 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 John Seipel Infection Prevention 09/18/2022 MDRO Hx 09/18/2022 11/27/2024 MRSA 06/11/2023 06/11/2023 11/27/2024 7:23 AM CDT MRSA Hx 06/11/2023 11/27/2024 documented as of this encounter Care Teams Photocomposing Machine Operator Relationship Specialty Start Date End Date Jack Arroyo MD [address] [place] [address] PCP - General 10/17/24 Elizabeth Sullivan, ALFRED Securities Compliance Examiner 10/14/17 documented as of this encounter
--- OUTSIDE RECORDS SUMMARY | 2025-01-11 14:12 | XMS_ITS | Encounter Summary ---
Author Organization [facility] Healthcare Address [address] [place] [address] Care Team Providers Care Investment Banking Manager Name Role Phone Marielena Smallwood MD Primary Care Provider Encounter Details Date Type Department Care Team (Late st Contact Info) Description 01/08/[address] [facility] Medical Group Cardiology [address] [facility] [address] [place] [address] Chai Lentz MD [address] [place] [address] Social History Tobacco Use Types Packs/Day Years Used Date Smoking Tobacco: Former Cigarettes Smokeless Tobacco: Current [facility] Utilities Answer Date Recorded In the past 12 months has [employer] electric, gas, oil, or water company threatened to shut off services in your home? No 06/18/2024 Social Connection and Isolation Panel Answer Date Recorded In a typical week, how many times do you talk on the phone with family, friends, or neighbors? More than three times a week 06/18/2024 How often do you get togethe r with friends or relatives? More than three times a week 06/18/2024 How often do you attend chur ch or buddhist services? Never 06/18/2024 Do you belong to any clubs o r organizations such as adventism groups, unions, fraternal or athletic groups, or [...] any time in the past 12 m [facility], were you homeless or living in a retirement (including now)? No 06/18/2024 Personal Safety Answer Date Recorded Have you ever been in or are you currently in a harmful physical or emotional relationship or is someone making you feel afraid or unsafe? Denies 07/08/2024 Sex and Gender Information Value Date Recorded Sex Assigned at Not on file Legal Sex Male 6:11 AM GARLAND MACHINE OPERATOR Gender Identity Not on file Sexual Orientation Not on file documented as of this encounter Plan of Treatment Not on file documented as of this encounter Procedures Procedure Name Priority Date/Time Associated Diagnosis Comments CARDIOLOGY DOCUMENT SCAN Routine 01/04/2025 9:44 AM CDT CARDIOLOGY DOCUMENT SCAN Routine 01/04/2025 8:50 AM CDT documented in this encounter Results * Cardiology Document Scan (01/04/2025 9:44 AM CDT) Anatomical Region Laterality Modality Other Chai Lentz MD CV CARDIAC SERVICES PROC EDURES Final Result * Cardiology Document Scan (01/04/2025 8:50 AM CDT) Anatomical Region Laterality Modality Other Chai Lentz MD CV CARDIAC SERVICES PROC EDURES Final Result documented in this encounter Visit Diagnoses Not on filedocumented in this encounter Additional Health Concerns Infection Onset Date Last Indicated Resolved Time 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 Source: [facility] [employer]. 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 Source: [facility] [employer]. 09/18/22 Acinetobacter osh 09/18/2022 documented as of this encounter Care Teams Investment Banking Manager Relationship Specialty Start Date End Date Marielena Smallwood MD [facility] [place] [address] PCP - General Family Practice 07/08/24 documented as of this encounter
--- OUTSIDE RECORDS SUMMARY | 2025-01-11 14:12 | XMS_ITS | Encounter Summary ---
Author Organization [facility] Address [address] [place] [address] Care Team Providers Care Life Insurance Salesperson Name Role Phone Frank Toure MD Unavailable Misael Maradiaga DO Primary Care Provider [phone] Joyce Luevano NP Primary Care Provider Unavaila Marielena Adame MD Primary Care Provider [phone] Encounter Details Date Type Department Care Team (Late st Contact Info) Description 12/14/2018 Hospital Follow-up Call [facility] [place] [address] Cony Adan RN Social History Tobacco Use [...] on filedocumented in this encounter Care Teams Life Insurance Salesperson Relationship Specialty Start Date End Date Misael Maradiaga DO [address] [place] [address] PCP - General FAMILY PRACTICE 09/28/18 01/13/20 Joyce Luevano NP [address] [place] [address] PCP - General NURSE PRACTITIONER 01/14/20 10/26/23 Marielena Smallwood MD [address] [place] [address] PCP - General FAMILY PRACTICE 10/27/23 Frank Toure MD [address] [place] [address] [employer] Campaign Marketing Manager CARDIOVASCULAR DISEASE 05/30/16 documented as of this encounter
--- OUTSIDE RECORDS SUMMARY | 2025-01-11 14:12 | XMS_ITS | Encounter Summary ---
Author Organization [facility] Address [address] [place] [address] Care Team Providers Care Pharmaceutical Operator Name Role Phone Frank Toure MD Unavailable Kayla Porras HOSPITAL SUPERINTENDENT Primary Care Provider [phone] Misael Maradiaga DO Primary Care Provider [phone] Joyce Luevano HOSPITAL SUPERINTENDENT Primary Care Provider Unavaila Marielena Adame MD Primary Care Provider [phone] Encounter Details Date Type Department Care Team (Latest Contact Info) Description 02/01/2018 Abstract [facility] , Jerica Cordon MD Social [...] on filedocumented in this encounter Care Teams Pharmaceutical Operator Relationship Specialty Start Date End Date Kayla Porras NP [address] [place] [address] PCP - General 06/25/16 09/27/18 Misael Maradiaga DO [address] [place] [address] PCP - General FAMILY PRACTICE 09/28/18 01/13/20 Joyce [place] [address] PCP - General NURSE PRACTITIONER 01/14/20 10/26/23 Marielena Smallwood MD [address] [place] [address] PCP - General FAMILY PRACTICE 10/27/23 Frank Toure MD [facility] [place] [address] Chivo Dress Finisher CARDIOVASCULAR DISEASE 05/30/16 documented as of this encounter
--- OUTSIDE RECORDS SUMMARY | 2025-01-11 14:12 | XMS_ITS | Clinical Summary ---
Author Organization [facility] [place] [facility] Address [address] [place] [address] Care Team Providers Care Health Physicist Name Role Phone Marielena Smallwood MD Primary [...] 25 Active cloBAZam (ONFI) 2.5 mg/mL suspensionIndicati ons:Pound-Gastaut Syndrome Treatment Adjunct Administer 4 mL (10 [...] 06/28/2024 Assessment & Plan (06/28/2024 11:42 AM ENGINE INSTALLER): Now back on full TF's sugars running mildly high. Monitor with q4 accuchecks and SSI. Hypophosphatemia 06/27/2024 Assessment & Plan (06/28/2024 11:44 AM ENGINE INSTALLER): <0.7 ? 2/2 refeeding syndrome. Started on neutraphos 2pkg QID 06/26. Still Phos<0.7 06/27. Tx with IV NaPhos 30mmoles and cont per tube replacement and monitor closely. -06/28: Phos=3.3, reduce nuetraphos to 1 PKG BID and monitor History of DVT (deep vein thrombosis) 06/26/2024 Assessment & Plan (06/26/2024 1:32 PM ENGINE INSTALLER): -On anticoagulation with Eliquis 5 mg po BID for hx of DVT -per chart review hx of Left Subclavian vein DVT diagnosed 08/01/23 H/O: GI bleed 06/25/2024 Assessment & Plan (06/26/2024 1:32 PM ENGINE INSTALLER): - recent admission at [facility] ( 06-07-24 to 06-09-24) with coffee-ground emesis noted at SNF - was seen by GI consult: no evidence of active GIB found on bedside Gtube aspiration, BUN 14, BUN/Cr < 30 Hgb 13.4, Plt 166. Previous EGD in 2021 showed erosive gastropathy and duodenopathy. Large diverticulum found in oropharynx. Given no evidence of gi bleed, pt was scheduled for outpatient endoscopy at [facility] in June 2024 with recs for PPI b.i.d. for 8 weeks, pantoprazole pack 40 mg BID and continued on home anticoagulation with eliquis It appears he was not started on PPI at SNF where still getting pepcid per SNF order report summary -cont PPI BID and will prescribe at discharge. Patient to f/up with GI at [facility] as peviously arranged Tracheostomy in place 06/25/2024 Assessment & Plan (06/26/2024 1:36 PM ENGINE INSTALLER): Tracheostomy dependence, has a Shiley #4 cuffed. Pt followed at [facility], per notes trach in place for pulmonary toilet due to his copious secretions and ongoing aspiration of his secretions. -needing frequent suctioning -sats stable on 28% FIO2 by HHTC -Was getting VEST at SNF Low grade fever 06/20/2024 Assessment & Plan (06/26/2024 1:34 PM ENGINE INSTALLER): Low-grade fever and tachycardia, softer BP after [...] 06/17/2024 Assessment & Plan (06/28/2024 11:43 AM ENGINE INSTALLER): -patient at admission with a G tube, was getting continous tube feedings at [facility] and not tolerating, -was changed to [...] underwent G tube conversion to GJ at [facility] 12/14/22 (additional documented GJ tube procedures at [facility] most recent 09/09/23). Pt ' feeding tube fell off and pt had 18 Spanish G tube placed at [facility] ED on 04/21/24 (records on care everywhere)and after that he has not tolerated well tube feedings per discussion with his sister Ms Hilliard,Adriane [phone] POA - consulted IR 06-20-24 for conversion [...] goal 06/25, adjust FWF per hydration status, machine shop instructor to follow up -On full TF's-osmolite 1.5. Phos repleted. Copious oral secretions 06/13/2024 Assessment & Plan (06/26/2024 1:29 PM ENGINE INSTALLER): Patient on chronic glycopyrrolate due to secretions, held at admission 07/01 to potential for constipation with plan to add back when he's had a bowel movements -resume on 06-19- hold on 06-20 due to somnolence. Suction PRN - restart glycopyrrolate 1mg BID 06/26 and monitor Abdominal pain 06/12/2024 Assessment & Plan (06/26/2024 1:23 PM ENGINE INSTALLER): -p/w abdominal distention from SNF to ED on 06-12 ,reported biliary emesis per halfway (approximately 300 cc) , not associated fevers or change in bowel habits. Feeding tube placed to gravity drainage in ED H&P notes regular bowel movements. CT scan on 06-12 in ED with stool in the rectum and sigmoid. [place] likely constipation contributing to the patient's abdominal [...] 06/12/2024 Assessment & Plan (06/26/2024 12:08 AM ENGINE INSTALLER): Complicated by left LE AKA. History of CVA (cerebrovascular accident) 2020 Assessment & Plan (06/26/2024 1:32 PM ENGINE INSTALLER): - hx of RT parietal CVA- hx of dementia Cont asa and statin Essential hypertension 12/11/2020 Assessment & Plan (06/26/2024 1:30 PM ENGINE INSTALLER): - on metoprolol and norvasc, held with soft BP 06-19 - resume metoprolol 06-21 -resume amlodipine 06-22 - Monitor Hyperlipidemia 12/11/2020 Assessment & Plan (06/12/2024 3:47 PM ENGINE INSTALLER): - Continue home statin Seizure 12/10/2020 Assessment & Plan (06/26/2024 1:36 PM ENGINE INSTALLER): History of seizure disorder secondary to traumatic brain injury. Currently on valproate, Vimpat, Keppra and Cobazam - Continue home medication, valproate level low at admit 48 on 06-12, 48 on 06-13, Valproic acid level 76 06-19 prior to dose, lacosamide level 1.4 on 06/12, 9.6 on 06-19 Followed by Neurology at [facility] Cognitive communication deficit 08/25/2020 Cerebrovascular [...] Encounters Date Type Department Care Team Description 01/08/2025 Orders Only [facility] Cardiology [address] [place] [address] Chai Lentz MD 01/03/2025 Orders Only [facility] Cardiology [address] [place] [address] Chai Lentz MD from Last 3 Months Surgical History Surgery Date Site/Laterality Comments GJ-TUBE EXCHANGE 09/09/2023 N/A GJ-TUBE EXCHANGE 02/25/2023 N/A GJ-TUBE EXCHANGE 12/14/2022 N/A G TO GJ-TUBE REPLACEMENT 06/22/2024 N/A Medical History Medical History Date Comments Arthritis Stroke (HCC) Hypertension Wheelchair bound 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 Never 06/18/2024 Do you belong to any clubs o r organizations such as catholic groups, unions, fraternal or athletic groups, [...] any time in the past 12 m [facility], were you homeless or living in [...] on file Legal Sex Male 6:11 AM ENGINE INSTALLER Gender Identity Not on file Sexual Orientation Not on file Obstetrics History Last Filed Vital Signs Vital Sign Reading Time Taken Comments Blood Pressure 145/83 07/09/2024 6:00 AM ENGINE INSTALLER Pulse 91 07/09/2024 6:00 AM ENGINE INSTALLER Temperature 36.5 C (97.7 F) 07/09/2024 6:31 AM ENGINE INSTALLER Respiratory Rate 10 07/09/2024 6:00 AM ENGINE INSTALLER Oxygen Saturation 100% 07/09/2024 6:00 AM ENGINE INSTALLER Inhaled Oxygen Concentration - - Weight 79.8 kg (176 lb) 07/09/2024 2:16 AM ENGINE INSTALLER Height 182.9 cm (6') 07/09/2024 2:16 AM ENGINE INSTALLER Body Mass Index 23.87 07/09/2024 2:16 AM ENGINE INSTALLER Plan of Treatment Health Maintenance Due Date [...] 04/06/2021, 07/02/2020, 06/11/2020 Influenza Vaccine (#1) 2025 , 03/16/2021, 03/07/2020, Additional history exists Hemoglobin [...] DOCUMENT SCAN Routine 01/04/2025 8:50 AM CDT CARDIOLOGY DOCUMENT SCAN Routine 01/02/2025 10:01 AM CDT CARDIOLOGY DOCUMENT SCAN Routine 01/02/2025 8:49 AM CDT EGFR STAT 07/08/2024 8:56 PM ENGINE INSTALLER HEPATITIS C ANTIBODY Routine 06/26/2024 3:21 PM ENGINE INSTALLER HEMOGLOBIN A1C Routine 06/12/2024 3:30 PM ENGINE INSTALLER TNI WITH LIPID PANEL Routine 08/24/2017 4:57 PM CDT from Last 3 Months or Most Recently Relevant to Health Maintenance Results * Cardiology Document Scan (01/04/2025 9:44 AM CDT) Anatomical Region Laterality Modality Other us Chai Lentz MD CV CARDIAC SERVICES PROC EDURES Final Result * Cardiology Document Scan (01/04/2025 8:50 AM CDT) Anatomical Region Laterality Modality Other Chai Lentz MD CV CARDIAC SERVICES PROC EDURES Final Result * Cardiology Document Scan (01/02/2025 10:01 AM CDT) Anatomical Region Laterality Modality Other Chai Lentz MD CV CARDIAC SERVICES PROC EDURES Final Result * Cardiology Document Scan (01/02/2025 8:49 AM CDT) Anatomical Region Laterality Modality Other Chai Lentz MD CV CARDIAC SERVICES PROC EDURES Final Result * eGFR (07/08/2024 8:56 PM ENGINE INSTALLER) eGFR >90 >=60 mL/min/1. 73 m2 Comment: [...] last reviewed 2021. Blood 07/08/2024 8:56 PM ENGINE INSTALLER 07/08/2024 9:26 PM ENGINE INSTALLER Naa Tam MD LAB BLOOD ORDERABLES Fin al Result [facility] Department [place] [address] * Hepatitis C antibody Blood (06/26/2024 3:21 PM ENGINE INSTALLER) [facility] Hep C Ab Nonreactive Nonreactive Comment:Antibodies to HCV no t detected. Does NOT exclude the possibility of recent exposure to HCV. Current interpretive data was last revised on 22 Blood 06/26/2024 3:21 PM ENGINE INSTALLER 06/26/2024 3:41 PM ENGINE INSTALLER Kami Dupotn MD LAB MICROBIOLOGY - GENERA L ORDERABLES Final Result Performing Organization Address [facility] de Phone Number [facility] [place] [place] [address] * Hemoglobin A1c (06/12/2024 3:30 PM ENGINE INSTALLER) [facility] Hgb A1C 4.9 4.0 - 5.6 % Estimated Average Glucose 94 mg/dL [facility] Comment: The ADA recommends reporting an estimated Average Glucose (eAG) with all Hemoglobin A1c results using the equation derived from a study of 507 normal and diabetic adults. Minority populations were underrepresented and children were not included. (Diabetes Care 2020; 43(S1): S66-S76). The eAG is not equivalent to a fasting glucose. Blood 06/12/2024 3:30 PM ENGINE INSTALLER 06/12/2024 5:10 PM ENGINE INSTALLER Ryan Jauregui MD LAB BLOOD ORDERABLES Final Resul t Performing Organization Address [facility] de Phone Number [facility] [place] [place] [address] * TNI with LIPID PANEL (08/24/2017 4:57 PM CDT) [facility] Troponin I < 0.300 0.000 - 0.300 ng/mL 08/24/2017 5:29 PM CDT [facility] HISTORICAL RESULTS Comment: Reference using JERRICA Chemiluminescence Negative: Repeat in 4-6 hours as indicated. Triglycerides 34 0 - 199 mg/dL 08/24/2017 5:30 PM T [facility] HISTORICAL RESULTS Comment:12 hr pc highly avani mmended for Triglyceride Cholesterol 129 0 - 199 mg/dL 08/24/2017 5:30 PM T [facility] HISTORICAL RESULTS Comment: Borderline: 200-239 High Risk: >239 HDL Cholesterol 71 mg/dL 8 5:30 PM T [facility] HISTORICAL RESULTS Comment: Reference Ranges: Males: >=40 mg/dL Females: >=50 mg/dL LDL Cholesterol, Calc 51 0 - 130 mg/dL 08/24/2017 5:30 PM CDT [facility] HISTORICAL RESULTS Comment:High Risk > 159 mg/d L Cholesterol/HDL Ratio 1.8 08/24/2017 5:30 PM T [facility] HISTORICAL RESULTS Comment: Cholesterol / HDL Ratio 3.5:1 or less is desirable. Cholesterol / HDL Ratio greater than 5:1 is considered higher risk for developing heart disease. 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 Source: [facility] [place]. 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 Source: [facility] [place]. 09/18/22 Acinetobacter os 09/18/2022 Insurance [facility] Advance Directives For more information, please contact: [phone] Documents on File Type Date Recorded Patient Inspector Timers Expl anation ADVANCE DIRECTIVE 10/08/2012 12:00 AM SANDRA R OF MAINTENANCE TRAINER FINANCIAL/MEDICAL * Full Code (Latest Code Status on File) Date Activated Date Inactivated Comments 06/12/2024 3:22 PM 06/28/2024 9:30 PM * Full Code Date Activated Date Inactivated Comments 12/10/2020 9:05 AM 12/13/2020 10:44 PM Care Teams Health Physicist Relationship Specialty Start Date End Date Marielena Smallwood MD [address] [facility] [place] [address] PCP - General Family Practice 07/08/24
--- OUTSIDE RECORDS SUMMARY | 2025-01-11 14:13 | XMS_ITS | Encounter Summary ---
Author Organization [facility] Address [address] [place] [address] Care Team Providers Care Elevator Troubleshooter Name Role Phone Frank Toure MD Unavailable Joyce Luevano NP Primary Care Provider Unavaila Marielena Adame MD Primary Care Provider [phone] Encounter Details Date Type Department Care Team (Late st Contact Info) Description 03/13/2022 AccuDraftt Message Enc [facility] Medical Group Family Medicine - [address] [address] Joyce Luevano, WILDFIRE PREVENTION SPECIALIST Bi Tabor Update Social History Tobacco Use [...] on filedocumented in this encounter Care Teams Elevator Troubleshooter Relationship Specialty Start Date End Date Joyce Luevano NP [address] [place] [address] PCP - General NURSE PRACTITIONER 01/14/20 10/26/23 Marielena Smallwood MD [address] [place] [address] PCP - General FAMILY PRACTICE 10/27/23 Frank Toure MD [address] [place] [address] [employer] Diesel Tractor Engine Mechanic CARDIOVASCULAR DISEASE 05/30/16 documented as of this encounter
--- OUTSIDE RECORDS SUMMARY | 2025-01-11 14:13 | XMS_ITS | Encounter Summary ---
Author Organization [facility] - [facility] Address [address] [place] [address] Care Team Providers Care Diamond Finishing Supervisor Name Role Phone Frank Toure MD Unavailable Joyce Luevano NP Primary Care Provider Unavaila Marielena Adame MD Primary Care Provider [phone] Encounter Details Date Type Department Care Team (Late st Contact Info) Description 02/23/2022 Geeks[employer]et Message Enc [facility] Medical Group Family Medicine - [address] [address] Joyce Luevano, APPRENTICESHIP TRAINING REPRESENTATIVE Bi Tabor Social History Tobacco Use [...] 11:25 AM CDT Message sent through other [employer] chart message * Yonatan Rodriguez RN - 02/23/2022 10:24 AM CDT Please see note. Thanks documented in this encounter Plan of Treatment Not on file documented as of this encounter Visit Diagnoses Not on filedocumented in this encounter Care Teams Diamond Finishing Supervisor Relationship Specialty Start Date End Date Joyce Luevano NP [address] [place] [address] PCP - General NURSE PRACTITIONER 01/14/20 10/26/23 Marielena Smallwood MD [address] [place] [address] PCP - General FAMILY PRACTICE 10/27/23 Frank Toure MD [address] [place] [address] [place] Dial Equipment Engineer CARDIOVASCULAR DISEASE 05/30/16 documented as of this encounter
--- OUTSIDE RECORDS SUMMARY | 2025-01-11 14:13 | XMS_ITS | Encounter Summary ---
Author Organization [facility] - [facility] Address [address] [place] [address] Care Team Providers Care Physics Technical Officer Name Role Phone Frank Toure MD Unavailable Joyce Luevano NP Primary Care Provider Unavaila Marielena Adame MD Primary Care Provider [phone] Encounter Details Date Type Department Care Team (Late st Contact Info) Description 05/11/2022 AquaMostt Message Enc [facility] Medical Group Family Medicine - [address] [address] Joyce Luevano, BOUCHRA Pat appointment [...] on filedocumented in this encounter Care Teams Physics Technical Officer Relationship Specialty Start Date End Date Joyce Luevano NP [address] [place] [address] PCP - General NURSE PRACTITIONER 01/14/20 10/26/23 Marielena Smallwood MD [address] [place] [address] PCP - General FAMILY PRACTICE 10/27/23 Frank Toure MD [address] [place] [address] [place] Him Analyst CARDIOVASCULAR DISEASE 05/30/16 documented as of this encounter
--- OUTSIDE RECORDS SUMMARY | 2025-01-11 14:13 | XMS_ITS | Clinical Summary ---
Author Organization [facility] Address [address] [place] [address] Care Team Providers Care Lining Mechanic Name Role Phone Frank Toure MD Unavailable Marielena Smallwood MD Primary Care Provider [phone] Allergies Active Allergy Reactions Criticality Noted Date Comments Clonazepam Hallucinations Medium 12/09/2021 hallucinations Medications vitamin B-1 100 MG TabIndications:Seiz ure ([facility]) Take 1 tablet (100 mg total) [...] x 7.5 MG/0.1ML Liquid Therapy PackIndications:Tara llanes ([facility]) 2 sprays by Nasal route as [...] No evidence of infection Urine cultures from [facility] last month were negative growth as [...] infection. Antibiotics not indicated Osteoporosis 11/22/2018 Seizure ([facility]) 08/25/2017 Cerebrovascular accident (CV A) due to thrombosis of right posterior cerebral artery ([facility]) 02/20/2016 Assessment & Plan (11/29/2018 9:36 PM CDT): Patient has residual cognitive difficulties I think beyond with patient and her family have recognized in the past however as noted in adequate medication intake her side effects may be causing deterioration. Hypertension 07/24/2015 Hyperlipidemia 04/14/2015 Assessment & Plan (11/29/2018 9:36 PM CDT): Continue home meds and monitor Seizure ([facility]) 04/11/2015 Assessment & Plan (11/29/2018 9:39 PM CDT): History of generalized seizure disorder and being managed by a neurologist in [facility] however there is confusion from family [...] Comments Blood Pressure 128/72 06/17/2022 10:46 AM MORTGAGE LOAN CLOSER Pulse 95 06/17/2022 10:46 AM MORTGAGE LOAN CLOSER Temperature 36.4 C (97.6 F) 06/07/2022 12:31 PM MORTGAGE LOAN CLOSER Respiratory Rate 18 06/17/2022 10:4 6 AM MORTGAGE LOAN CLOSER Oxygen Saturation 98% 06/17/2022 10: 46 AM MORTGAGE LOAN CLOSER Inhaled Oxygen Concentration - - Weight 59 kg (130 lb) 06/17/2022 10:46 AM MORTGAGE LOAN CLOSER stated - unable to weigh Height 180.3 cm (5' 11) 06/17/2022 10: 46 AM MORTGAGE LOAN CLOSER Body Mass Index 18.13 06/17/2022 10:46 AM MORTGAGE LOAN CLOSER Plan of Treatment Health Maintenance Due Date Last Done Comments Annual Physical 01/27/1963 Zoster Vaccines (1 of 2) 2011 Pneumococcal Vaccine: 50+ Years (2 of 2 - PCV) 02/03/2017 02/04/2016, 08/13/2015, 02/07/2015 RSV Immunization or 60+ Years (1 - Risk 60-74 years 1-dose series) 2021 COVID-19 Vaccine (4 - 2023-2 5 season) 2024 04/06/2021, 07/02/2020, 06/11/2020 PHQ-2 (Physician [place]) 05/30/2024 Colorectal Cancer Screening Colonoscopy (10 Years) [...] HEPATITIS C ANTIBODY Routine 06/23/2016 11:13 AM MORTGAGE LOAN CLOSER from Last 3 Months or Most Recently [...] * HEPATITIS C ANTIBODY (06/23/2016 11:13 AM MORTGAGE LOAN CLOSER) Pathologist [facility] HEPATITIS C AB NON-REACTIVE [place] [address] NR [employer] TO EPIC CONVERSION 06/23/2016 11:1 3 AM MORTGAGE LOAN CLOSER 06/23/2016 11:13 AM MORTGAGE LOAN CLOSER Narrative [employer] TO EPIC CONVERSION - 06/24/2016 6:41 PM MORTGAGE LOAN CLOSER Result Communication: No patient communication needed at this time us Misael Maradiaga DO LABORATORY Final Result [facility] TO EPIC CONVERSION from Last 3 Months or Most Recently Relevant to Health Maintenance Insurance Advance Directives Documents on File Type Date Recorded Patient Check Embosser Expl anation Advance Directives and Living Will 10/17/2017 SADVANCE DIRECTIVES * Full Code (Latest Code Status on File) Date Activated Date Inactivated Comments 12/04/2018 1:44 PM 12/12/2018 3:19 PM * Full Code Date Activated Date Inactivated Comments 11/29/2018 6:21 PM 12/04/2018 1:38 PM Care Teams Lining Mechanic Relationship Specialty Start Date End Date Marielena Smallwood MD [address] [place] [address] PCP - General FAMILY PRACTICE 10/27/23 Frank Toure MD [address] [place] [address] [place] Part Maker CARDIOVASCULAR DISEASE 05/30/16
--- OUTSIDE RECORDS SUMMARY | 2025-01-11 14:13 | XMS_ITS | Encounter Summary ---
Author Organization [facility] - [facility] Address [address] [place] [address] Care Team Providers Care Delivery Mgr Name Role Phone Frank Toure MD Unavailable Joyce Luevano NP Primary Care Provider Unavaila Marielena Adame MD Primary Care Provider [phone] Encounter Details Date Type Department Care Team (Late st Contact Info) Description 03/08/2022 [employer] Message Enc [facility] Medical Group Family Medicine - [address] [address] Joyce Luevano, BOUCHRA Vascular doctor [...] on filedocumented in this encounter Care Teams Delivery Mgr Relationship Specialty Start Date End Date Joyce Luevano NP [address] [place] [address] PCP - General NURSE PRACTITIONER 01/14/20 10/26/23 Marielena Smallwood MD [address] [place] [address] PCP - General FAMILY PRACTICE 10/27/23 Frank Toure MD [address] [place] [address] [employer] Bookkeeping Teacher CARDIOVASCULAR DISEASE 05/30/16 documented as of this encounter
--- OUTSIDE RECORDS SUMMARY | 2025-01-11 14:13 | XMS_ITS | Encounter Summary ---
Author Organization [facility] - [facility] Address [address] [place] [address] Care Team Providers Care Design Specialist Name Role Phone Frank Toure MD Unavailable Joyce Luevano NP Primary Care Provider Unavaila Marielena Adame MD Primary Care Provider [phone] Encounter Details Date Type Department Care Team (Late st Contact Info) Description 03/09/2022 Acc[employer]alt Message Enc [facility] Medical Group Family Medicine - [address] [address] Joyce Luevano, ISOTOPE TECHNOLOGIST Update on Bi Tabor Social History Tobacco [...] on filedocumented in this encounter Care Teams Design Specialist Relationship Specialty Start Date End Date Joyce Luevano NP [address] [place] [address] PCP - General NURSE PRACTITIONER 01/14/20 10/26/23 Marielena Smallwood MD [address] [place] [address] PCP - General FAMILY PRACTICE 10/27/23 Frank Toure MD [address] [place] [address] [employer] Medical Manager CARDIOVASCULAR DISEASE 05/30/16 documented as of this encounter
--- OUTSIDE RECORDS SUMMARY | 2025-01-11 14:13 | XMS_ITS | Encounter Summary ---
Author Organization [facility] - [facility] Address [address] [place] [address] Care Team Providers Care Quarry Plug And Feather Driller Name Role Phone Frank Toure MD Unavailable Joyce Luevano NP Primary Care Provider Unavaila Marielena Adame MD Primary Care Provider [phone] Encounter Details Date Type Department Care Team (Late st Contact Info) Description 06/16/2022 MyCStrohot Message Enc [facility] Medical Group Family Medicine - [address] [address] Joyce Luevano, LACE STRIPPER Bi [employer]abor Social History Tobacco Use Types [...] Coronavirus/COVID-19? No / Unsure 06/17/2022 10:38 AM LETTERER documented as of this encounter Functional Status [...] in writing. She states to fax to [phone]. Will send letter to them. ERER * Yonatan Rodriguez RN - 06/16/2022 12:50 PM CST Please see note. Thanks ERER documented in this encounter Plan of Treatment Not on file documented as of this encounter Visit Diagnoses Not on filedocumented in this encounter Care Teams Quarry Plug And Feather Driller Relationship Specialty Start Date End Date Joyce Luevano NP [address] [place] [address] PCP - General NURSE PRACTITIONER 01/14/20 10/26/23 Marielena Smallwood MD [address] [place] [address] PCP - General FAMILY PRACTICE 10/27/23 Frank Toure MD [address] [place] [address] [employer] Associate Dentist CARDIOVASCULAR DISEASE 05/30/16 documented as of this encounter
--- OUTSIDE RECORDS SUMMARY | 2025-01-11 14:13 | XMS_ITS | Encounter Summary ---
Author Organization [facility] - [facility] Address [address] [place] [address] Care Team Providers Care Delivery Engineer Name Role Phone Frank Toure MD Unavailable Joyce Luevano NP Primary Care Provider Unavaila Marielena Adame MD Primary Care Provider [phone] Encounter Details Date Type Department Care Team (Late st Contact Info) Description 02/23/2022 MyChart Message Enc [facility] Medical Group Family Medicine - [address] [address] Joyce Luevano, BOUCHRA Bi updated [...] 10:33 AM CDT These updated through the [employer] system. documented in this encounter Plan of Treatment Not on file documented as of this encounter Visit Diagnoses Not on filedocumented in this encounter Care Teams Delivery Engineer Relationship Specialty Start Date End Date Joyce Luevano NP [address] [place] [address] PCP - General NURSE PRACTITIONER 01/14/20 10/26/23 Marielena Smallwood MD [address] [place] [address] PCP - General FAMILY PRACTICE 10/27/23 Frank Toure MD [address] [place] [address] [employer] Medical Affairs Leader CARDIOVASCULAR DISEASE 05/30/16 documented as of this encounter
--- OUTSIDE RECORDS SUMMARY | 2025-01-11 14:13 | XMS_ITS | Clinical Summary ---
Author Organization [facility] Address [address] [facility] [place] [address] Care Team Providers Care Documentation Specialist Name Role Phone Elizabeth Sullivan RN Unavailable [phone] Jack Arroyo MD Primary Care Provider Rosie marsh Source Comments [facility],non-owned Affiliates and Associated Physician Practices is amultiple site organization consisting of ambulatory clinics and hospital sitesin [place], [place], [place] and [place]. This disclosure is being madepursuant to the Care Everywhere program and may not contain all information available regarding this patient. Last updated 18.[facility] Allergies Active Allergy Reactions Criticality Noted Date [...] every 6 hours as needed 3 Active Additional Information Patient taking differently:500 mg Enteral Tube EVERY 6 HOURS PRN,indigestion, Reason: Other, Reported on 11/29/2024 polyethylene glycol 3350 (Miralax) 17 g packet 17 (seventeen) g by Enteral Tube route 2 times daily 15 packet 3 Active bisacodyl (Dulcolax) 10 MG suppository Insert 1 (one) suppository into the rectum once daily as needed for Constipation (if no results from MOM) Active albuterol-iprat ropium (Duo-Neb) 0.5-2.5 (3) MG/3ML nebulizer solution Inhale 3 mL by mouth every 6 hours as needed for Shortness of Breath or Wheezing Active finasteride (Proscar) 5 MG tablet 1 (one) tablet by Per G Tube route once daily 4 Active Sodium Phosphates (FLEET ENEMA RE) Insert [...] 90 days 1050 mL 2 5 Active acetaminophen (Tylenol) 325 MG tablet 2 (two) tablets by Enteral Tube route 3 times daily Maximum allowable Acetaminophen amount = 4 Grams (4000 mg) / 24 hours. Pt takes 160 mg/5mL liquid which is the same as 325 mg tab 5 Active Additional Information Patient taking differently:650 mg [...] G Tube route every 8 hours Active guaiFENesin-dex tromethorphan (Robitussin DM) 100-10 MG/5ML syrupIndication s:Cough 15 mL by Per G Tube route every 6 hours Reasons: Cough Active metoclopramide (Reglan) 10 MG tabletIndicatio ns:Gastroparesi s 1 (one) tablet by Per G Tube [...] Per G Tube route 2 times daily 5 Active atorvastatin (Lipitor) 80 MG tablet 1 (one) tablet by Enteral Tube route at bedtime 5 Active amLODIPine (Norvasc) 10 MG tabletIndicatio ns:Hypertension 1 (one) tablet by Enteral Tube route once daily Reasons: High Blood Pressure 5 Active metoprolol tartrate IR (Lopressor) 25 MG tablet 0.5 (one-half) tablet by Enteral Tube route 2 times daily 5 Active pantoprazole (Protonix) 40 MG packet 1 (one) packet by Enteral Tube route 2 times daily for 60 days 5 025 Active Active Problems Problem Noted Date Diagnosed [...] GI ppx: lansoprazole Code status: Full code [facility] Transfer Checklist: Reasons for Transfer to [facility]: Delay in Discharge/Difficult Discharge due to [...] Wound care instructions (if applicable) Per wound shelter Meds Being Held/Why (if any): Depakote held due to complication of pancreatitis. Follow-up Tasks (to be completed prior to/for discharge, e.g. labs, imaging, follow-ups): IR G to GJ tube conversion Your team's Preferred Contact Information for any potential follow up questions: Yue Rojas, resident [address] [facility] Consultants that need to be Informed Prior to Discharge (especially for follow up appointment scheduling, please include any contact info): N/a Checklist Items: [x] Patient and/or family notified of potential transfer to [facility] [x] Patient added to [facility] Transfer List [x] Routine labs updated [...] GI ppx: lansoprazole Code status: Full code [facility] Transfer Checklist: Reasons for Transfer to [facility]: Delay in Discharge/Difficult Discharge due to [...] Wound care instructions (if applicable) Per wound shelter Meds Being Held/Why (if any): Depakote held due to complication of pancreatitis. Follow-up Tasks (to be completed prior to/for discharge, e.g. labs, imaging, follow-ups): IR G to GJ tube conversion Your team's Preferred Contact Information for any potential follow up questions: Yue Rojas, resident [address] [facility] Consultants that need to be Informed Prior to Discharge (especially for follow up appointment scheduling, please include any contact info): N/a Checklist Items: [x] Patient and/or family notified of potential transfer to [facility] [x] Patient added to [facility] Transfer List [x] Routine labs updated [...] a care plan. -s/p GJ placement on 10 -Monitor for refeeding Assessment & Plan (12/08/2024 [...] a care plan. -s/p GJ placement on 7/10 -Monitor for refeeding Assessment & Plan (12/06/2024 [...] No evidence of infection Urine cultures from [facility] last month were negative growth as [...] Encounters Date Type Department Care Team Description 01/09/2025 9:45 AM CDT Office Visit [facility] - ENT [address] [place] [phone] Alden Hurtado MD Oropharyngeal dysphagia (Primary Dx); Tracheostomy dependence (HCC); Problems with swallowing and mastication 12/12/2024 Telephone Transitional Care at [facility] [address] [place] [address] Tiffani Moreno, cable splicer assistant 11/26/2024 4:27 PM CDT - 12/11/2024 5:48 PM CDT Hospital Encounter [facility] [address] [place] [address] Brian Lawrence MD Atilgan, Deniz, MD Hazam, Randa, MD Jain, Aman, DO Arshad, Iqra, MD Neurology Discharge Disposition: Nursing Facility:Medicaid 11/14/2024 10:45 AM CDT Office Visit [facility] - Vascular Surgery [address] [place] [phone] Anna Membreno MD Pain in extremity, unspecified extremity (Primary Dx) 11/14/2024 Travel 11/05/2024 Telephone [facility] - Centralized Scheduling [facility] [place] [phone] Alden Hurtado MD Appointment 10/30/2024 Telephone [facility] - Centralized Scheduling [address] [place] [address] Sean Raymundo DO Appointment 10/22/2024 Telephone [facility] [address] [place] [address] Cade Guthrie MD General (OSH Transfer) 10/17/2024 2:47 PM CDT - 10/18/2024 10:58 AM CDT Emergency [facility] [address] [place] [phone] Caio Elder MD Lorber, Steven A, MD Abdominal pain, unspecified abdominal location (Primary Dx); Lung nodule Discharge Disposition: Home or Self Care 10/17/2024 Travel from Last 3 Months Immunizations Immunization Administration Dates Next Due BCG HALF-WAY, HISTORIC VACCINE 03/18/2021 COVID MODERNA 6M-11Y 25MCG/0.25ML 07/02/2020, Covid Pfizer primary monoval ent 12+ yr 0.3mL Purple cap 04/06/2021,07/02/2020,06/11/2020 INFLUENZA [id number], HISTORIC VACCINE 02/27,03/07/2020,03/14/2019,2014 INFLUENZA VACCINE 02/01/2022,,03/07/2020,2018,03/24/2018,06/15/2017,06/23/2016,1 06/23/2014,03/19/2015 INFLUENZA VACCINE, QUADR. [...] and heating? Not hard at all 08/06/2024 [facility] Occupat ional Health - Occupational Stress [...] on file Legal Sex Male 5:07 PM MATE RELIEF Gender Identity Not on file Sexual Orientation Not on file Last Filed Vital Signs Vital Sign Reading Time Taken Comments Blood Pressure 111/80 01/09/2025 12:10 PM CDT Pulse 92 01/09/2025 12:10 PM CDT Temperature 37 C (98.6 F) 12/11/2024 4:04 PM CDT Respiratory Rate 18 01/09/2025 12:10 PM CDT Oxygen Saturation 94% 01/09/2025 12:10 PM CDT Inhaled Oxygen Concentration 28% 12/11/2024 4 :00 PM CDT Weight 72.6 kg (160 lb 0.9 oz) 11/27/2024 9:00 A M CDT Height 175.3 cm (5' 9.02) 11/27/2024 9:00 AM CD T Body Mass Index 23.62 11/27/2024 9:00 AM CDT Plan of Treatment Upcoming Encounters Date Type Department Care Team (Late st Contact Info) Description 01/14/2025 2:00 PM CDT Office Visit [facility] - GI [address] [place] [phone] 01/18/2025 1:00 PM CDT Appointment [facility] [address] [place] [phone] Alden Hurtado MD [address] [place] [address] 01/18/2025 1:00 PM CDT [facility] [address] [place] [phone] Marcella Green, PROJECT MANAGER/DESIGN MANAGER [address] [place] [address] OF AUDIOLOGY [place] [phone] 03/06/2025 10:00 AM CDT Office Visit [facility] - Neurology [address] [facility] [place] [phone] Saloni King, PITCH WORKER-HISTOLOGIC TECHNICIAN [address] [place] [address] Health Maintenance Due Date Last Done Comments [...] 60-74 years 1-dose series) 2021 COVID-19 VACCINE (2 - season) 2024 04/06/2021, 07/02/2020, 07/02/2020, Additional history exists DEPRESSION SCREENING 05/30/2024 INFLUENZA VACCINE (#1) 2025 , 03/16/2021, 03/16/2021, Additional history exists DTAP/TDAP/TD VACCINES (3 - Td or Tdap) 06/06/2027 06/06/2017, 03/23/2017 HIV SCREENING Completed 09/01/2022, 0401/2019, 01/30/2018, Additional history exists HEPATITIS C SCREENING [...] of21 resultswithin the time period is included. Glucose WB/POC 95 70 - 99 mg/dL 12/11/2024 5:01 PM CDT [facility] Specimen Type Arterial/C apillary 12/11/2024 5:01 PM CDT [facility] Blood BLOOD SPECIMEN / Unknown 12/11/2024 4:58 PM CDT 12/11/2024 5:01 PM CDT us Marianne Daniels MD LAB - POINT OF CARE ORDERABLES F inal Result [facility] [address] [place] [address], [facility] [phone] * (ABNORMAL) RENAL FUNCTION PANEL (12/11/2024 12:28 AM CDT) Only the most recent of4 resultswithin the time period is included. BUN 10 7 - 26 mg/dL 12/11/2024 1:14 AM [facility] Creatinine 0.49(L) 0.71 - 1.16 mg/dL 12/11/2024 1:14 AM [facility] Sodium 140 136 - 145 mmol/L 12/11/2024 1:14 AM [facility] Potassium 4.1 3.5 - 4.5 mmol/L 12/11/2024 1:14 AM [facility] Chloride 110(H) 98 - 107 mmol/L 12/11/2024 1:14 AM [facility] CO2 29 22 - 29 mmol/L 12/11/2024 1:14 AM [facility] Glucose 121(H) 70 - 99 mg/dL 12/11/2024 1:14 AM [facility] Albumin 3.0(L) 3.4 - 5.0 g/dL 12/11/2024 1:14 AM [facility] Calcium 8.6 8.4 - 10.2 mg/dL 12/11/2024 1:14 AM [facility] Phosphorus 3.0 2.8 - 5.1 mg/dL 12/11/2024 1:14 AM [facility] Anion Gap 1(L) 6 - 16 12/11/2024 1:14 AM [facility] BUN/Creatinine Ratio 20 7 - 23 12/11/2024 1:14 AM [facility] Osmolality Calculated 290 275 - 295 mOsm/kg 12/11/2024 1:14 AM [facility] eGFR by CKD-EPI >90 >=90 mL/min/1.7 3 m2 12/11/2024 1:14 AM CDT [facility] Comment:Estimated Glomerular Filtration Rate (eGFR) calculated using the CKD-EPI Creatinine Equation (2020), per the National Kidney Foundation and [place] [employer] Neph[employer] recommendations. Blood BLOOD SPECIMEN / Unknown Venipuncture / Unknown 12/11/2024 12:28 AM CDT 12/11/2024 12:48 AM CDT [facility] LAB - CHEMISTRY ORDERABLES Final Result Performing Organization Address City/[facility] Co de Phone Number [address] [address], [facility] [phone] * MAGNESIUM BLOOD (12/11/2024 12:28 AM CDT) Only the most recent of6 resultswithin the time period is included. Magnesium 1.8 1.6 - 2.6 mg/dL 12/11/2024 1:14 AM CDT [facility] Blood BLOOD SPECIMEN / Unknown Venipuncture / Unknown 12/11/2024 12:28 AM CDT 12/11/2024 12:48 AM CDT [facility] - CHEMISTRY ORDERABLES Final Result Performing Organization Address [facility] de Phone Number [address] [address], [place] [phone] * EKG 12-Lead (12/07/2024 8:47 AM CDT) Only the most recent of2 resultswithin the time period is included. Ventricular Rate 106 BPM [facility] Atrial Rate 106 BPM [facility] M[facility] P-R Interval 156 ms [facility] M[facility] QRS Duration ms 82 ms [facility] MUSE Q-T Interval ms 362 ms [facility] M[facility] QTC Calculation (Bezet) 480 ms [facility] Calculated P Combs 56 degrees [facility] Calculated R Combs -22 degrees [facility] Calculated T Combs 86 degrees [facility] Interpretation EKG SINUS TACHYCARDIA SEPTAL INFARCT (CITED ON OR BEFORE 09-OCT-2022) INFERIOR INFARCT (CITED ON OR BEFORE 27-JUL-2024) ABNORMAL ECG WHEN COMPARED WITH ECG OF 01-DEC-2024 22:00, PREMATURE VENTRICULAR COMPLEXES ARE NO LONGER PRESENT QUESTIONABLE CHANGE IN INITIAL FORCES OF ANTEROSEPTAL LEADS ST NO LONGER ELEVATED IN ANTERIOR LEADS Confirmed by ASHLYN ROSAS MD ([id number]) on 12/08/2024 3:56:27 PM [facility] M[facility] 12/07/2024 8:47 AM CDT 12/08/2024 3:56 PM CDT Herminio Morrison DO ECG ORDERABLES Edited Result - Final Performing Organization Address City/[facility]/ZIP Co de Phone Number [facility] * PT-INR [facility] (12/07/2024 12:29 AM CDT) Pathologist [facility] PT 14.1 12.1 - 14.8 Seconds 12/07/2024 1:13 AM CDT [facility] INR 1.1 See Comment 12/07/2024 1:13 AM CDT [facility] Comment:The suggested therap eutic range for standard coumadin (warfarin) therapy is an INR of 2.0-3.0. For high-risk patients (Mechanical Mitral Valve Prosthesis, etc.), the suggested prophylactic therapeutic range is an INR of 2.5-3.5. Blood BLOOD SPECIMEN / Unknown Venipuncture / Unknown 12/07/2024 12:29 AM CDT 12/07/2024 12:52 AM CDT Gaurav Leroy PA-C LAB - COAGULATION ORDERA BLES Final Result [facility] [address] [place] [address], [place] [phone] * (ABNORMAL) BASIC METABOLIC PANEL (CALCIUM TOTAL) (12/07/2024 12:29 AM CDT) Only the most recent of2 resultswithin the time period is included. BUN <5(L) 7 - 26 mg/dL 12/07/2024 1:17 AM [facility] Creatinine 0.51(L) 0.71 - 1.16 mg/dL 12/07/2024 1:17 AM [facility] Sodium 141 136 - 145 mmol/L 12/07/2024 1:17 AM [facility] Potassium 2.7(L) 3.5 - 4.5 mmol/L 12/07/2024 1:17 AM [facility] Chloride 111(H) 98 - 107 mmol/L 12/07/2024 1:17 AM [facility] CO2 25 22 - 29 mmol/L 12/07/2024 1:17 AM [facility] Glucose 83 70 - 99 mg/dL 12/07/2024 1:17 AM [facility] Calcium 8.7 8.4 - 10.2 mg/dL 12/07/2024 1:17 AM [facility] Anion Gap 5(L) 6 - 16 12/07/2024 1:17 AM [facility] BUN/Creatinine Ratio <10 7 - 23 12/07/2024 1:17 AM [facility] Osmolality Calculated <288 275 - 295 mOsm/kg 12/07/2024 1:17 AM [facility] eGFR by CKD-EPI >90 >=90 mL/min/1.7 3 m2 12/07/2024 1:17 AM [facility] Comment:Estimated Glomerular Filtration Rate (eGFR) calculated using the CKD-EPI Creatinine Equation (2020), per the National Kidney Foundation and [place] [employer] Nephrology recommendations. Blood BLOOD SPECIMEN / Unknown Venipuncture / Unknown 12/07/2024 12:29 AM CDT 12/07/2024 12:51 AM CDT us Herminio Morrison DO LAB - CHEMISTRY ORDERABLES Final Result [facility] [address] [place] [address], [facility] [phone] * (ABNORMAL) PHOSPHORUS BLOOD (12/07/2024 12:29 AM CDT) Only the most recent of2 resultswithin the time period is included. Phosphorus 2.7(L) 2.8 - 5.1 mg/dL 12/07/2024 1:17 AM CDT [facility] Blood BLOOD SPECIMEN / Unknown Venipuncture / Unknown 12/07/2024 12:29 AM CDT 12/07/2024 12:51 AM CDT us Herminio Morrison DO LAB - CHEMISTRY ORDERABLES Final Result [facility] [address] [place] [address], [facility] [phone] * IR Perc G To GJ Tube Exchange (12/06/2024 11:22 AM CDT) Anatomical Region Laterality Modality Abdomen X-Ray Angiograph y 12/06/2024 4:35 PM CDT Impressions 12/09/2024 9:09 PM CDT Impression: Successful conversion of the existing gastrostomy catheter for a new 18-Gambian balloon-retention gastrojejunostomy catheter under fluoroscopic guidance, as [...] Procedure: Existing gastrostomy tube exchange for 18 Gambian gastrojejunostomy tube Start time: 1107 End time: 1120 Sedation initiated time: N/A Fluoroscopic time: 0.8 minutes Contrast: 30 mL of Isovue-300 Procedure in detail: The procedure, risks, and possible complications were explained to the patient in detail, and informed consent was obtained. The patient was placed supine on the procedure table. A office technology instructor film of abdomen was obtained, which showed an existing properly placed gastrostomy tube. Contrast was hand injected through the existing gastrostomy catheter and showed opacification of the gastric lumen. A 0.035 inch Glidewire was advanced into the stomach through the existing catheter which was subsequently removed over the wire. Glidewire was advanced into the jejunum under fluoroscopic guidance. A new 18-Gambian gastrojejunostomy catheter was then advanced over the [...] Procedure: Existing gastrostomy tube exchange for 18 Gambian gastrojejunostomy tube Start time: 1107 End time: 1120 Sedation initiated time: N/A Fluoroscopic time: 0.8 minutes Contrast: 30 mL of Isovue-300 Procedure in detail: The procedure, risks, and possible complications were explained to the patient in detail, and informed consent was obtained. The patient was placed supine on the procedure table. A office technology instructor film of abdomen wasobtained, which showed an existing properly placed gastrostomy tube. Contrast was hand injected through the existing gastrostomy catheter and showed opacification of the gastric lumen. A 0.035 inch Glidewire was advanced into the stomach through the existing catheter which was subsequently removed over the wire. Glidewire was advanced into thejejunum under fluoroscopic guidance. A new 18-Gambian gastrojejunostomy catheterwas then advanced over the wire under fluoroscopic guidance. The catheterwas secured by balloon insufflation. Hand injection of contrast through the gastric port confirmedintraluminal position within the stomach. Hand injection of contrast through thejejunal port confirmed intraluminal position within the jejunum. Steriledressing was applied. The patient tolerated the procedure well [facility]. There were no immediate complicationsassociated with the procedure. Impression: Successful conversion of the existing gastrostomy catheterfor a new 18-Gambian balloon-retention gastrojejunostomy catheter under fluoroscopic guidance, as [...] A1c 4.9 <=5.6 % 12/03/2024 3:17 PM T [facility] Estimated Average Glucose 94 mg/dL 12/03/2024 3:17 PM [facility] Comment: HbA1c Interpretation: Normal : < 5.7% Pre-diabetes: 5.7-6.4% Diabetes: Equal to or greater than 6.5% Test results diagnostic of diabetes should be repeated for confirmation. Treatment target values recommended by ADA and other clinical organizations should be used to evaluate metabolic control in patients. Reference: [place] Diabetes Association, Standards of Care in Diabetes [...] LAB - CHEMISTRY ORDERABLES Lulu l Result [address] [address], [facility] [phone] * TROPONIN-I HIGH SENSITIVE (12/03/2024 8:37 AM CDT) Only the most recent of4 resultswithin the time period is included. Troponin I High Sensitive 7 <=35 ng/L 12/03/2024 9:41 AM CDT [facility] Blood BLOOD SPECIMEN / Unknown Lab Venipuncture / Unknown 12/03/2024 8:37 AM CDT 12/03/2024 9:07 AM CDT us Neha Palomino MD LAB - CHEMISTRY ORDERABLES F inal Result Performing Organization Address [facility]/ZIP Co de Phone Number [address] [address], [facility] [phone] * POTASSIUM BLOOD (12/03/2024 8:37 AM CDT) Pathologist [facility] Potassium 3.8 3.5 - 4.5 mmol/L 12/03/2024 9:31 AM CDT [facility] Blood BLOOD SPECIMEN / Unknown Lab Venipuncture / Unknown 12/03/2024 8:37 AM CDT 12/03/2024 9:07 AM CDT us Paige Brewster MD LAB - CHEMISTRY ORDERABLES Final Result Performing Organization Address [facility]/ZIP Co de Phone Number [address] [address], [facility] [phone] * (ABNORMAL) PTT [facility] (12/03/2024 5:20 AM CDT) APTT 42.5(H) 23.0 - 38.4 Seconds 12/03/2024 11:06 AM CDT [facility] Comment:Suggested therapeuti c range for full dose I.V. unfractionated heparin therapy for venous thromboembolism is 71 to 109 seconds. Blood BLOOD SPECIMEN / Unknown Venipuncture / Unknown 12/03/2024 5:20 AM CDT 12/03/2024 10:22 AM CDT Ulises Galindo MD LAB - COAGULATION ORDERABLES Fi nal Result [facility] [address] [place] [address], [facility] [phone] * TYPE + SCREEN PANEL (12/03/2024 5:20 AM CDT) Pathologist [facility] Antibody Screen NEG 11:26 AM CDT [facility] ABO Rh O POS 12/03/2024 11:26 AM CDT [facility] Blood Bank BLOOD SPECIMEN / Unknown Venipuncture / Unknown 12/03/2024 5:20 AM CDT 12/03/2024 10:22 AM CDT Ulises Galindo MD LAB - BLOOD BANK ORDERABLES Fin al Result Performing Organization Address City/[facility]/ZIP Co de Phone Number [facility] [address] [place] [address], [facility] [phone] * (ABNORMAL) CBC W AUTO DIFFERENTIAL (12/03/2024 5:20 AM CDT) Only the most recent of4 resultswithin the time period is included. WBC 5.7 4.0 - 10.7 x10E9/L 12/03/2024 10:47 AM CDT [facility] RBC Count 4.17(L) 4.30 - 5.80 x10E12/L 12/03/2024 10:47 AM CDT [facility] Hemoglobin 13.4 13.3 - 17.5 g/dL 12/03/2024 10:47 AM CDT [facility] Hematocrit 39.4 38.7 - 51.1 % 12/03/2024 10:47 AM [facility] MCV 94.5 80.0 - 98.0 fL 12/03/2024 10:47 AM [facility] MCH 32.1 26.7 - 33.6 pg 12/03/2024 10:47 AM [facility] MCHC 34.0 31.7 - 36.3 g/dL 12/03/2024 10:47 AM [facility] RDW-CV 13.2 11.3 - 14.8 % 12/03/2024 10:47 AM [facility] Platelet Count 303 150 - 420 x10E9/L 12/03/2024 10:47 AM [facility] MPV 12.2(H) 7.8 - 11.4 fL 12/03/2024 10:47 AM [facility] Neutrophil % 45.9 41.0 - 74.0 % 12/03/2024 10:47 AM [facility] Lymphocyte % 40.4 17.0 - 47.0 % 12/03/2024 10:47 AM [facility] Monocyte % 8.2 3.0 - 11.0 % 12/03/2024 10:47 AM [facility] Eosinophil % 4.7 0.0 - 7.0 % 12/03/2024 10:47 AM [facility] Basophil % 0.4 0.0 - 1.6 % 12/03/2024 10:47 AM [facility] Immature Granulocytes % 0.4 0.0 - 1.0 % 12/03/2024 10:47 AM [facility] Neutrophil Absolute 2.62 1.60 - 7.50 x10E9/L 12/03/2024 10:47 AM [facility] Lymphocyte Absolute 2.30 1.00 - 4.40 x10E9/L 12/03/2024 10:47 AM [facility] Monocyte Absolute 0.47 0.15 - 1.00 x10E9/L 12/03/2024 10:47 AM [facility] Eosinophil Absolute 0.27 0.00 - 0.60 x10E9/L 12/03/2024 10:47 AM [facility] Basophil Absolute 0.02 0.00 - 0.13 x10E9/L 12/03/2024 10:47 AM [facility] Blood BLOOD SPECIMEN / Unknown Venipuncture / Unknown 12/03/2024 5:20 AM CDT 12/03/2024 10:22 AM CDT us Ulises Galindo MD LAB - HEMATOLOGY ORDERABLES Fin al Result [facility] [address] [place] [address], [facility] [phone] * (ABNORMAL) COMPREHENSIVE METABOLIC PANEL (12/03/2024 5:20 AM CDT) Only the most recent of3 resultswithin the time period is included. BUN <5(L) 7 - 26 mg/dL 12/03/2024 11:07 AM [facility] Creatinine 0.48(L) 0.71 - 1.16 mg/dL 12/03/2024 11:07 AM [facility] Sodium 141 136 - 145 mmol/L 12/03/2024 11:07 AM [facility] Potassium 3.2(L) 3.5 - 4.5 mmol/L 12/03/2024 11:07 AM [facility] Chloride 110(H) 98 - 107 mmol/L 12/03/2024 11:07 AM [facility] CO2 26 22 - 29 mmol/L 12/03/2024 11:07 AM [facility] Glucose 83 70 - 99 mg/dL 12/03/2024 11:07 AM [facility] Calcium 9.2 8.4 - 10.2 mg/dL 12/03/2024 11:07 AM [facility] Protein Total 7.1 6.0 - 8.3 g/dL 12/03/2024 11:07 AM [facility] Albumin 3.4 3.4 - 5.0 g/dL 12/03/2024 11:07 AM [facility] Bilirubin Total 0.4 0.2 - 1.2 mg/dL 12/03/2024 11:07 AM [facility] Alkaline Phosphatase 116 40 - 150 U/L 12/03/2024 11:07 AM [facility] ALT 23 5 - 55 U/L 12/03/2024 11:07 AM [facility] AST 21 5 - 34 U/L 12/03/2024 11:07 AM [facility] Anion Gap 5(L) 6 - 16 12/03/2024 11:07 AM [facility] BUN/Creatinine Ratio <10 7 - 23 12/03/2024 11:07 AM [facility] Osmolality Calculated <288 275 - 295 mOsm/kg 12/03/2024 11:07 AM [facility] Albumin/Globulin Ratio 0.9(L) 1.1 - 2.3 12/03/2024 11:07 AM [facility] eGFR by CKD-EPI >90 >=90 mL/min/1.7 3 m2 12/03/2024 11:07 AM [facility] Comment:Estimated Glomerular Filtration Rate (eGFR) calculated using the CKD-EPI Creatinine Equation (2020), per the National Kidney Foundation and [place] [employer]ph[employer] recommendations. Blood BLOOD SPECIMEN / Unknown Venipuncture / Unknown 12/03/2024 5:20 AM CDT 12/03/2024 10:22 AM CDT us Ulises Galindo MD LAB - CHEMISTRY ORDERABLES Lulu l Result [facility] [address] [place] [address], [facility] [phone] * TSH (12/03/2024 5:20 AM CDT) TSH 1.497 0.350 - 4.940 uIU/mL 12/03/2024 11:22 AM [facility] Blood BLOOD SPECIMEN / Unknown Venipuncture / Unknown 12/03/2024 5:20 AM CDT 12/03/2024 10:22 AM CDT us Ulises Galindo MD LAB - CHEMISTRY ORDERABLES Lulu coley Result [facility] [address] [place] [address], [facility] [phone] * ECHO COMPLETE W CONTRAST (12/02/2024 1:09 [...] LVOT pk grad 2.528 mmHg SSM CV FUJI PACS LVOT pk iggy 79.495 cm/s SSM CV F UJI PACS LVOT VTI 13.89 cm SSM CV FUJ I PACS RV-rodriguez basal diam 2.681 cm SSM CV FUJI PACS RVIDd 2.653 cm SSM CV FUJ I PACS RVOT diam Doppler 2.3 cm SS M CV FUJI PACS RVOT pk iggy 64.734 cm/s SSM CV F UJI PACS RVOT VTI 11.567 cm SSM CV FUJ I PACS LA size 3.834 cm SSM CV FUJ I PACS LA vol BP 34.054 ml SSM CV FUJ I PACS RA area 12.635 cm SSM CV FUJI PACS AV area pk iggy 2.087 cm SSM CV FUJI PACS AV area cont VTI 2.007 cm SSM CV FUJI PACS AV pk grad 5.661 mmHg SSM CV FU JI PACS AV mn grad 2.828 mmHg SSM CV FU JI PACS AV pk iggy 118.965 cm/s SSM CV FUJ I PACS AV VTI 21.609 cm SSM CV FUJ I PACS MV A pk iggy 74.128 cm/s SSM CV F UJI PACS MV E pk iggy 47.388 cm/s SSM CV F UJI PACS MV E' lateral iggy 6.233 cm/s SS M CV FUJI PACS MV mn grad 1.201 mmHg SSM CV FU JI PACS MV VTI 20.977 cm SSM CV FUJ I PACS PV pk iggy 99.619 cm/s SSM CV FUJ I PACS PV VTI 16.226 cm SSM CV FUJ I PACS TAPSE 1.903 cm SSM CV FUJ I PACS TR pk iggy 259.7 cm/s SSM CV FUJ I PACS Ascending aorta 3.088 cm SSM CV FUJI PACS AV area index 1.065 cm /m [...] 12:35 PM Patient Status: I/P Study Site: [facility] Primary Location: [facility] EStudy Info Technical Quality: Adequate Exam Type: ECHO COMPLETE W CONTRAST Indications R07.9 - Chest pain, unspecified type Procedure(s) * A complete 2D, color Doppler, spectral Doppler, and M-Mode transthoracic echocardiogram was performed. Contrast/Agitated Saline Contrast / Saline: Definity Amount: 1.00 ml Administered By: Saeed Nesbitt Reaction to Contrast: no Staff Referring Physician: Ulises Galindo Ordering Provider: Ulises Galindo Attending Physician: Ulises Galindo Cashier Credit: Saeed Nesbitt Left Ventricle The left ventricular [...] MD on 12/02/2024 03:18 PM Procedure Note Abimbola Flores MD - 12/02/2024 Summary * The pulmonary [...] 12:35 PM Patient Status: I/P Study Site: [facility] Primary Location: [facility] EStud Info Technical Quality: Adequate Exam Type: ECHO COMPLETE W CONTRAST Indications R07.9 - Chest pain, unspecified type Procedure(s) * A complete 2D, color Doppler, spectral Doppler, and M-Modetransthoracic echocardiogram was performed. Contrast/Agitated Saline Contrast / Saline: Definity Amount: 1.00 ml Administered By: Saeed Nesbitt Reaction to Contrast: no Staff Referring Physician: Ulises Galindo Ordering Provider: Ulises Galindo Attending Physician: Ulises Galindo Cashier Credit: Saeed Nesbitt Left Ventricle The left ventricular [...] 18 <100 pg/mL 12/01/2024 11:20 PM CDT [facility] Comment: A decision threshold of 100 [...] LAB - CHEMISTRY ORDERABLES Lulu l Result [facility] [address] [place] [address], [facility] [phone] * XR Chest 1Vw Portable (12/01/2024 10:35 [...] > Interpreting Provider: Bebo Kuo MD on 511:08 PM us Ulises Galindo MD DIAGNOSTIC IMAGING [...] > Interpreting Provider: Bebo Kuo MD on 1:17 PM Ulises Galindo MD DIAGNOSTIC IMAGING ORDERABLES F inal Result * (ABNORMAL) LACOSAMIDE (11/27/2024 2:46 AM CDT) Lacosamide 17.6(H) 1.0 - 10.0 ug/mL 11/29/2024 1:20 AM CDT [facility] ([facility]) Comment: INTERPRETIVE INFORMATION: Lacosamide, Serum Therapeutic Range: 1.0 - 10.0 ug/mL Toxic: >=20.0 ug/mL Lacosamide is an anticonvulsant drug indicated for adjunctive therapy for partial-onset seizures. The therapeutic range is based on serum, predose (trough) draw collection at steady-state concentration. Adverse effects may include dizziness, fatigue, nausea, vomiting, blurred vision, and tremor. Performed By: [facility] [address] [place] [id number] Aviation Engineer: Power Milian MD, PhD CLIA Number: [id number] Blood BLOOD SPECIMEN / Unknown Lab Venipuncture / Unknown 11/27/2024 2:46 AM CDT 11/27/2024 2:56 AM CDT us Ulises Galindo MD LAB - CHEMISTRY ORDERABLES Lulu l Result [facility] ([facility]) [address] * (ABNORMAL) LEVETIRACETAM LEVEL (11/27/2024 2:46 AM CDT) Levetiracetam 72(H) 10 - 40 ug/mL 11/28/2024 7:[address] [facility] ([facility]) Comment: INTERPRETIVE INFORMATION: Keppra (Levetiracetam) Therapeutic Range: 10-40 ug/mL Toxic: Not well Established Pharmacokinetics of levetiracetam are affected by renal function. Adverse effects may include somnolence, weakness, headache and vomiting. This levetiracetam (Keppra) immunoassay uses the [employer] reagents, which has known cross-reactivity with the drug brivaracetam (Briviact) and may report inaccurate results. Patients transitioning from levetiracetam to brivaracetam or those who are using both medications should not monitor drug concentrations with the [employer] assay. These patients should be monitored using a validated chromatographic methodology that distinguishes between drugs to determine drug concentrations. Performed By: [facility] [address] [place] [address] Aviation Engineer: Power Milian MD, PhD CLIA Number: [id number] Blood BLOOD SPECIMEN / Unknown Lab Venipuncture / Unknown 11/27/2024 2:46 AM CDT 11/27/2024 2:56 AM CDT us Ulises Galindo MD LAB - THERAPEUTIC DRUG MONITORI NG ORDERABLES Final Result [facility]) [address] * (ABNORMAL) VALPROIC ACID LEVEL (11/27/2024 2:46 AM CDT) Valproic Acid Total <13(L) 50 - 100 ug/mL 11/27/2024 3:22 AM [facility] Blood BLOOD SPECIMEN / Unknown Lab Venipuncture / Unknown 11/27/2024 2:46 AM CDT 11/27/2024 2:56 AM CDT Ulises Galindo MD LAB - CHEMISTRY ORDERABLES Lulu l Result [facility] [address] [place] [address] [phone] * (ABNORMAL) CBC W/O DIFFERENTIAL (11/26/2024 10:59 PM CDT) WBC 6.9 4.0 - 10.7 x10E9/L 11/26/2024 11:01 PM [facility] RBC Count 3.56(L) 4.30 - 5.80 x10E12/L 11/26/2024 11:01 PM [facility] Hemoglobin 11.5(L) 13.3 - 17.5 g/dL 11/26/2024 11:01 PM [facility] Hematocrit 33.1(L) 38.7 - 51.1 % 11/26/2024 11:01 PM [facility] MCV 93.0 80.0 - 98.0 fL 11/26/2024 11:01 PM [facility] MCH 32.3 26.7 - 33.6 pg 11/26/2024 11:01 PM [facility] MCHC 34.7 31.7 - 36.3 g/dL 11/26/2024 11:01 PM [facility] RDW-CV 13.1 11.3 - 14.8 % 11/26/2024 11:01 PM [facility] Platelet Count 251 150 - 420 x10E9/L 11/26/2024 11:01 PM [facility] MPV 11.8(H) 7.8 - 11.4 fL 11/26/2024 11:01 PM [facility] Blood BLOOD SPECIMEN / Unknown Venipuncture / Unknown 11/26/2024 10:59 PM CDT 11/26/2024 10:59 PM CDT us Ulises Galindo MD LAB - HEMATOLOGY ORDERABLES Fin al Result [facility] [address] [place] [address], [facility] [phone] * CARDIAC EKG ORDER (10/18/2024 11:02 AM CDT) Narrative 10/18/2024 11:02 AM CDT Ordered by an unspecified provider. us Scanned Document CARDIAC SERVICES ORDERABLES Fin al Result * URINALYSIS REFLEX MICROSCOPIC REFLEX CULTURE (10/18/2024 6:28 AM CDT) Color UA Yellow Yellow, Straw 10/18/2024 6:49 AM [facility] Clarity UA Clear Clear 10/18/2024 6:49 AM [facility] Glucose UA Normal Normal 10/18/2024 6:49 AM [facility] Bilirubin UA Negative Negative 10/18/2024 6:49 AM [facility] Ketone UA Negative Negative 10/18/2024 6:49 AM [facility] Specific [place] UA 1.022 1.005 - 1.030 10/18/2024 6:49 AM [facility] Blood UA Negative Negative 10/18/2024 6:49 AM [facility] pH UA 8.0 5.0 - 8.0 pH 10/18/2024 6:49 AM [facility] Protein UA Negative Negative 10/18/2024 6:49 AM [facility] Urobilinogen UA Normal Normal mg/dL 10/18/2024 6:49 AM [facility] Nitrite UA Negative Negative 10/18/2024 6:49 AM [facility] Leukocyte Esterase UA Negative Negative 10/18/2024 6:49 AM [facility] Reflex Status Culture not indicated 10/18/2024 6:49 AM [facility] Urine URINE SPECIMEN OBTAINED BY CLEAN CATCH PROCEDURE / Unknown Collection / Unknown 10/18/2024 6:28 AM CDT 10/18/2024 6:32 AM CDT us Caio Elder MD LAB - URINALYSIS ORDERABLES Fi nal Result [facility] [address] [place] [address], [facility] [phone] * CT Abdomen Pelvis W Contrast (10/17/2024 [...] diaphragm. Report dictated by Meeta Leblanc MD (sr vice president). Nj Thomason MD have personally [...] diaphragm. Report dictated by Meeta Leblanc MD (sr vice president). Nj Thomason MD have personally reviewed and interpreted this examination/study. > Interpreting Provider: Nj Escobar MD on 10/18/2024 11:44 AM Caio Elder MD DIAGNOSTIC IMAGING ORDERABLES Final Result * TROPONIN-I HIGH SENSITIVE BASELINE + 1HR (10/17/2024 4:08 PM CDT) Pathologist [facility] Troponin I High Sensitive 4 <=35 ng/L 10/17/2024 5:01 PM CDT [facility] Blood BLOOD SPECIMEN / Unknown Venipuncture / Unknown 10/17/2024 4:08 PM CDT 10/17/2024 4:17 PM CDT Caio Elder MD LAB - CHEMISTRY ORDERABLES Fin al Result [address] [address], [facility] [phone] * LIPASE BLOOD (10/17/2024 4:08 PM CDT) Pathologist [facility] Lipase 23 8 - 78 U/L 10/17/2024 5:14 PM CDT [facility] Blood BLOOD SPECIMEN / Unknown Venipuncture / Unknown 10/17/2024 4:08 PM CDT 10/17/2024 4:17 PM CDT Narrative [facility] - 10/17/2024 5:14 PM CDT Lipase results from the [employer] Al[employer] analyzer may not be comparable with other methodologies. Caio Elder MD LAB - CHEMISTRY ORDERABLES Fin al Result [address] [address], [place] [phone] * LACTIC ACID BLOOD (10/17/2024 4:08 PM CDT) Pathologist [facility] Lactic Acid-Stat 1.8 <=2.0 mmol/L 10/17/2024 4:47 PM CDT [facility] Blood BLOOD SPECIMEN / Unknown Venipuncture / Unknown 10/17/2024 4:08 PM CDT 10/17/2024 4:17 PM CDT us Caio Elder MD LAB - CHEMISTRY ORDERABLES Fin al Result Performing Organization Address City/[facility]/ZIP Co de Phone Number [address] [address], [place] [phone] * HEPATITIS C AB SCREEN RFLX NAAT QUANT (09/01/2022 2:05 AM CDT) Hepatitis C Antibody Non-react phan Non-reac tive 09/01/2022 3:09 AM CDT [facility] Comment:Hepatitis C Antibody screen indicates no [...] ORDERABLES Fin al Result Performing Organization Address [facility]/ZIP Co de Phone Number [address] [address], [place] [phone] * HIV-1 HIV-2 ANTIBODY + HIV P24 AG PANEL (09/01/2022 2:05 AM CDT) HIV Antigen/Antibod y 1 & 2 Non-reacti ve Non-react phan 09/01/2022 3:09 AM CDT [facility] Comment:No Laboratory eviden ce of HIV infection. 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 Source: [facility]. 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 John Seipel Infection Prevention 09/18/2022 MDRO Hx 09/18/2022 11/27/2024 MRSA Hx 06/11/2023 11/27/[address] [place] [address] [place] [address] Advance Directives Documents on File Type Date Recorded Patient Manager Case Management Expl anation Adv Directive/Living Will/POA 07/19/2019 4:10 [...] 12:11 AM 06/10/2024 2:02 AM Care Teams Documentation Specialist Relationship Specialty Start Date End Date Jack Arroyo MD [address] [place] [address] PCP - General 10/17/24 Elizabeth Sullivan, ALFRED Assembly Line Leader 10/14/17
--- OUTSIDE RECORDS SUMMARY | 2025-01-11 14:13 | XMS_ITS | Encounter Summary ---
Author Organization [facility] - [facility] Address [address] [place] [address] Care Team Providers Care Managing Partner Name Role Phone Frank Toure MD Unavailable Joyce Luevano NP Primary Care Provider Unavaila Marielena Adame MD Primary Care Provider [phone] Encounter Details Date Type Department Care Team (Late st Contact Info) Description 07/06/2022 [employer] Message Enc [facility] Medical [facility] Family Medicine - [address] [address] Joyce Luevano, SOFTWARE PERFORMANCE ENGINEER [employer] Social History Tobacco Use [...] Coronavirus/COVID-19? No / Unsure 06/17/2022 10:38 AM COMBINE MECHANIC documented as of this encounter Functional Status [...] 1:34 PM CST Please see note. Thanks INE MECHANIC * Yonatan Rodriguez RN - 07/07/2022 8:09 AM CST Please see note. Thanks INE MECHANIC documented in this encounter Plan of Treatment Not on file documented as of this encounter Visit Diagnoses Not on filedocumented in this encounter Care Teams Managing Partner Relationship Specialty Start Date End Date Joyce Luevano NP [address] [place] [address] PCP - General NURSE PRACTITIONER 01/14/20 10/26/23 Marielena Smallwood MD [address] [place] [address] PCP - General FAMILY PRACTICE 10/27/23 [place] [address] [place] [phone] [employer] Header Dock CARDIOVASCULAR DISEASE 05/30/16 documented as of this encounter
--- OUTSIDE RECORDS SUMMARY | 2025-01-11 14:13 | XMS_ITS | Encounter Summary ---
Author Organization [facility] - [facility] Address [address] [place] [address] Care Team Providers Care Regulatory Scientist Name Role Phone Frank Toure MD Unavailable Joyce Luevano NP Primary Care Provider Unavaila Marielena Adame MD Primary Care Provider [phone] Encounter Details Date Type Department Care Team (Late st Contact Info) Description 02/23/2022 [employer] Message Enc [facility] Medical [facility] Family Medicine - [address] [address] Joyce Luevaon, CLINICAL CASE MANAGER [employer] toenail Social History Tobacco [...] on filedocumented in this encounter Care Teams Regulatory Scientist Relationship Specialty Start Date End Date Joyce Luevano NP [address] [place] [address] PCP - General NURSE PRACTITIONER 01/14/20 10/26/23 Marielena Smallwood MD [facility] [place] [address] PCP - General FAMILY PRACTICE 10/27/23 Frank Toure MD [address] [place] [address] [employer] Shoe Polisher CARDIOVASCULAR DISEASE 05/30/16 documented as of this encounter
--- OUTSIDE RECORDS SUMMARY | 2025-01-11 14:13 | XMS_ITS | Encounter Summary ---
Author Organization [facility] - [facility] Address [address] [place] [address] Care Team Providers Care Ironer Name Role Phone Frank Toure MD Unavailable Joyce Luevano NP Primary Care Provider Unavaila Marielena Adame MD Primary Care Provider [phone] Encounter Details Date Type Department Care Team (Late st Contact Info) Description 03/15/2022 [employer] Message Enc [facility] Medical Group Family Medicine - [address] [address] Joyce Luevano, MANAGER ENTERPRISE [employer] Social History Tobacco Use Types [...] on filedocumented in this encounter Care Teams Ironer Relationship Specialty Start Date End Date Joyce Luevano NP [address] [place] [address] PCP - General NURSE PRACTITIONER 01/14/20 10/26/23 Marielena Smallwood MD [address] [place] [address] PCP - General FAMILY PRACTICE 10/27/23 Frank Toure MD [address] [place] [address] [employer] Senior Net Developer CARDIOVASCULAR DISEASE 05/30/16 documented as of this encounter
--- NOTE | 2025-01-11 14:20 | PC.NURSE ---
EDP Dr. Colvin notified of patient refusing bloodwork. No new orders at this time.
--- NOTE | 2025-01-11 14:33 | ED_ITS ---
HPI - Seizure General Chief Complaint: Seizure Stated Complaint: seizure? Time Seen by Provider: 01/11/25 13:54 History of Present Illness HPI Narrative: This is a 64 yo male with history of seizure disorder, trach dependency, G tube dependency, indwelling paredes who presents to the ED from intermediate for possible seizure. Patient states that he has a seizure and he remembered it. He states that he was shaking all over. He said he had another 1 last night too. Denies headache, chest pain, shortness of breath, abdominal pain. Seizure History: Yes Related Data Home Medications ?Medication ?Instructions ?Recorded ?Confirmed ?Last Taken ?Type polyethylene glycol 3350 17 17 g feeding tube DAILY PRN 12/18/22 01/02/25 01/01/25 17:10 History gram/dose oral powder Constipation 17 grams bisacodyl 10 mg rectal suppository 10 mg RECTAL DAILY PRN Constipation 02/11/23 01/02/25 10/17/24 01:50 History 10 mg sennosides 8.6 mg tablet (senna) 8.6 mg feeding tube BID 02/11/23 01/02/25 01/01/25 08:05 History 8.6 mg guaifenesin 100 mg/5 mL oral liquid 300 mg feeding tube Q12H PRN Cough 07/08/23 01/02/25 10/17/24 05:50 History 300 mg magnesium hydroxide 400 mg/5 mL 30 ml feeding tube HS PRN 12/13/23 01/02/25 09/11/24 12:10 History oral suspension (Milk of Magnesia) Constipation 30 mL atorvastatin 40 mg tablet 40 mg feeding tube HS 02/10/24 01/02/25 01/01/25 20:45 History 40 mg calcium carbonate 500 mg/5 mL (as 1,250 mg feeding tube Q6H PRN 02/10/24 01/02/25 Unknown History calcium carb 1,250 mg/5 mL) oral Heartburn suspension folic acid 1 mg tablet 1 mg feeding tube DAILY 02/10/24 01/02/25 01/01/25 07:05 History 1 mg ipratropium 0.5 mg-albuterol 3 mg 3 ml inhalation Q6H PRN Shortness 02/10/24 01/02/25 Unknown History (2.5 mg base)/3 mL nebulization Of Breath soln magnesium citrate (Citroma oral 296 ml feeding tube DAILY PRN 02/10/24 01/02/25 Unknown History solution) Constipation thiamine HCl (vitamin B1) 100 mg 100 mg feeding tube DAILY 02/10/24 01/02/25 01/01/25 08:10 History tablet 100 mg acetaminophen 650 mg/20.3 mL oral 650 mg feeding tube Q4H PRN Pain 03/30/24 01/02/25 12/24/24 00:10 History suspension (Scale Score 1-3) 650 mg aspirin 81 mg chewable tablet 81 mg feeding tube DAILY 03/30/24 01/02/25 01/01/25 08:05 History 81 mg finasteride 5 mg tablet 5 mg feeding tube DAILY 10/18/24 01/02/25 01/01/25 08:10 History 5 mg glycopyrrolate 2 mg tablet 2 mg feeding tube Q8H 10/18/24 01/02/25 01/01/25 17:00 History 2 mg ondansetron HCl 4 mg tablet 4 mg feeding tube Q6H PRN nausea 10/18/24 01/02/25 10/15/24 00:50 History and vomiting 4 mg Allergies Allergy/AdvReac Type Severity Reaction Status Date / Time tramadol AdvReac Intermediate Anxiety Verified 01/01/25 22:14 clonazepam AdvReac Unknown drowsiness Verified 01/01/25 22:14 Review of Systems Review of Systems: Gen.: Denies fevers or chills Eyes: Denies eye pain or visual change ENT: Denies congestion Respiratory: Denies shortness of breath or cough CV: Denies chest pain or palpitations GI: Denies abdominal pain nausea, emesis or diarrhea denies burning, urgency, frequency or hematuria Musculoskeletal: Denies back pain or muscle pain Neuro: Denies numbness, tingling, weakness or focal weakness Skin: Denies rash Except as documented, all other systems reviewed and negative [facility] Past Medical History Medical History Pneumonia Acute lactic acidosis History of multiple strokes Residual expressive aphasia, dysphagia, and left-sided weakness. Esophagitis Anemia Aspiration pneumonia Elevated LFTs Atrial fibrillation with rapid ventricular response Thrombocytopenia Rash of face Lung collapse Right Mucus plugging of bronchi Increased tracheal secretions Epilepsy Intractable seizure disorder Status epilepticus Severe sepsis Tracheitis Sepsis with acute hypoxic respiratory failure Acute kidney injury UTI (urinary tract infection) Acute pancreatitis Diarrhea Cholecystitis Pancreatitis 09/2024 Deep venous thrombosis of upper extremity Benign prostatic hyperplasia Esophageal diverticulum Gastroparesis Iron deficiency anemia Vascular dementia with psychotic disturbance Surgical History Surgical History History of gastrostomy tube placement (07/09/23) History of tracheostomy History of left above knee amputation Family History Family History Other Unknown family medical history Social History Social History Social History: Surrogate medical decision maker: Adriane Hilliard, sibling. Code status: Full code. 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 Lungs clear to auscultation breathing. CARDIOVASCULAR: Regular rate and rhythm without murmurs rubs or gallops. ABDOMINAL: Soft, nontender, nondistended, no rebound or guarding MUSCULOSKELETAl: Status post bilateral BKA. NEURO: Awake and alert. Following commands, speech normal, no focal deficits SKIN:: Warm, dry. No rashes lesions or abrasions PSYCHIATRIC: Normal affect/mood, Course Vital Signs Vital signs: Vital Signs Temperature 97.8 F 01/11/25 13:31 Pulse Rate 92 01/11/25 13:31 Respiratory Rate 16 01/11/25 13:31 Blood Pressure 124/78 01/11/25 13:31 Pulse Oximetry 98 01/11/25 13:31 Oxygen Delivery Room Air 01/11/25 13:31 Temperature 97.8 F 01/11/25 13:31 Pulse Rate 92 01/11/25 13:31 Respiratory Rate 16 01/11/25 13:31 Blood Pressure 124/78 01/11/25 13:31 Pulse Oximetry 98 01/11/25 13:36 Oxygen Delivery Room Air 01/11/25 13:36 MDM - Seizure MDM Narrative Medical decision making narrative: 64-year-old male with history of seizures presenting to the ED for questionable seizure. Patient recalls everything that happened during the seizure activity. He has been getting his Keppra as prescribed. He is refusing any workup at this time. The patient is AAO x4 and had his baseline. He was deemed appropriate for discharge back to intermediate. Differential Diagnosis Differential diagnosis: Likely focal seizure, generalized seizure and epileptic seizure Discharge Plan Discharge Clinical Impression: Seizure disorder Patient Disposition: Home Condition: Stable Instructions: Antibiotic Form, Epilepsy (ED) Patient Language: Lebanese Prescriptions: No Action bisacodyl 10 mg Suppository 10 mg RECTAL DAILY PRN (Reason: Constipation) Rx Instructions: if no results for MOM sennosides [senna] 8.6 mg Tablet 8.6 mg feeding tube BID guaifenesin 100 mg/5 mL liquid 300 mg feeding tube Q12H PRN (Reason: Cough) magnesium hydroxide [Milk of Magnesia] 400 mg/5 mL Suspension 30 ml feeding tube HS PRN (Reason: Constipation) Rx Instructions: If no BM in 3 days metoclopramide HCl [Reglan] 10 mg tablet 10 mg feeding tube Q6H PRN (Reason: nausea and vomiting) Qty: 30 0RF lidocaine [Lidoderm] 5 % Adhesive Patch,Medicated 1 patch transdermal DAILY Qty: 30 0RF omeprazole 40 mg capsule,delayed release(DR/EC) 40 mg feeding tube DAILY Qty: 30 0RF metoprolol tartrate 25 mg tablet 37.5 mg feeding tube BID Qty: 60 0RF amoxicillin-pot clavulanate 250-62.5 mg/5 mL suspension for reconstitution 10 ml feeding tube Q8H 3 Days Qty: 90 0RF doxycycline hyclate 100 mg capsule 100 mg feeding tube BID 3 Days Qty: 6 0RF polyethylene glycol 3350 17 gram/dose powder 17 g feeding tube DAILY PRN (Reason: Constipation) atorvastatin 40 mg tablet 40 mg feeding tube HS ipratropium-albuterol 0.5 mg-3 mg(2.5 mg base)/3 mL solution for nebulization 3 ml INHALATION Q6H PRN (Reason: Shortness Of Breath) thiamine HCl (vitamin B1) 100 mg Tablet 100 mg feeding tube DAILY magnesium citrate [Citroma] Solution 296 ml feeding tube DAILY PRN (Reason: Constipation) Rx Instructions: if no results from enema folic acid 1 mg tablet 1 mg feeding tube DAILY calcium carbonate 500 mg/5 mL (1,250 mg/5 mL) Suspension 1,250 mg feeding tube Q6H PRN (Reason: Heartburn) aspirin 81 mg Tablet,Chewable 81 mg feeding tube DAILY acetaminophen 650 mg/20.3 mL Suspension 650 mg feeding tube Q4H PRN (Reason: Pain (Scale Score 1-3)) finasteride 5 mg tablet 5 mg feeding tube DAILY glycopyrrolate 2 mg tablet 2 mg feeding tube Q8H ondansetron HCl 4 mg tablet 4 mg feeding tube Q6H PRN (Reason: nausea and vomiting) amlodipine [Norvasc] 5 mg Tablet 5 mg feeding tube DAILY 30 Days Qty: 30 1RF isosorbide dinitrate 5 mg Tablet 5 mg feeding tube TID 30 Days Qty: 90 1RF levetiracetam 100 mg/mL solution 2,000 mg feeding tube BID 30 Days Qty: 0 1RF lacosamide 10 mg/mL solution 250 mg feeding tube BID 30 Days Qty: 200 2RF Follow-up/Referrals: Tay Arroyo [Other] Stand Alone Forms: Longterm Discharge
[2025-01-11 15:10] VITALS: BP 124/78; PULSE 95; RESP 18; O2SAT 98
== END 2025-01-11 15:11 ==
PROVIDERS: Emergency Provider Student in an Organized Health Care Education/Training Program
DX: G40.909 Epilepsy, unspecified, not intractable, without status epilepticus (principal); I69.320 Aphasia following cerebral infarction; I69.391 Dysphagia following cerebral infarction; I69.354 Hemiplegia and hemiparesis following cerebral infarction affecting left non-dominant side; R13.10 Dysphagia, unspecified; F01.52 Vascular dementia, unspecified severity, with psychotic disturbance; I48.91 Unspecified atrial fibrillation; N40.0 Benign prostatic hyperplasia without lower urinary tract symptoms; K31.84 Gastroparesis; D50.9 Iron deficiency anemia, unspecified; Z93.1 Gastrostomy status; Z93.0 Tracheostomy status; Z96.0 Presence of urogenital implants; Z87.01 Personal history of pneumonia (recurrent); Z86.718 Personal history of other venous thrombosis and embolism; Z87.440 Personal history of urinary (tract) infections; Z89.612 Acquired absence of left leg above knee; Z79.899 Other long term (current) drug therapy; Z79.82 Long term (current) use of aspirin
CPT/HCPCS: 99283

== ENCOUNTER 2025-01-28 03:03 | Emergency (ER) | payer OTHER, SELFPAY ==
--- NOTE | ~2025-01-28 | XR_ITS ---
EXAMINATION: XR abdomen gastric tube insert DATE: 01/28/2025 03:59 INDICATION: G-tube replacement TECHNIQUE: Supine AP view of the abdomen and pelvis was obtained following injection of 50 mL [id number] intravenous patient's markings gastrostomy tube. COMPARISON: 09/17/2024 FINDINGS: Percutaneous gastrostomy tube tip and bulb projects over the body the stomach. Injected contrast fills the lumen of the stomach with no evident extra luminal contrast extravasation. Moderate amount of gas scattered throughout nondilated large and small bowel. IMPRESSION: 1. Percutaneous gastrostomy tube and injected contrast in the stomach. Reviewed, dictated and finalized at location A.
[2025-01-28 03:05] VITALS: BP 170/91; PULSE 74; RESP 22; TEMP 36.6; O2SAT 100
--- NOTE | 2025-01-28 03:33 | ED.GENADULT ---
HPI - General Adult General Chief complaint: Unspecified Stated complaint: dislodged g tube Time Seen by Provider: 01/28/25 03:26 History of Present Illness HPI narrative: Patient is a 65-year-old gentleman presents emergency department with chief complaint pulled G-tube out. Patient was sent from a local custodial after his G-tube was dislodged patient has no other complaints at this time Related Data Home Medications ?Medication ?Instructions ?Recorded ?Confirmed ?Last Taken ?Type polyethylene glycol 3350 17 17 g feeding tube DAILY PRN 12/18/22 01/02/25 01/01/25 17:10 History gram/dose oral powder Constipation 17 grams bisacodyl 10 mg rectal suppository 10 mg RECTAL DAILY PRN Constipation 02/11/23 01/02/25 10/17/24 01:50 History 10 mg sennosides 8.6 mg tablet (senna) 8.6 mg feeding tube BID 02/11/23 01/02/25 01/01/25 08:05 History 8.6 mg guaifenesin 100 mg/5 mL oral liquid 300 mg feeding tube Q12H PRN Cough 07/08/23 01/02/25 10/17/24 05:50 History 300 mg magnesium hydroxide 400 mg/5 mL 30 ml feeding tube HS PRN 12/13/23 01/02/25 09/11/24 12:10 History oral suspension (Milk of Magnesia) Constipation 30 mL atorvastatin 40 mg tablet 40 mg feeding tube HS 02/10/24 01/02/25 01/01/25 20:45 History 40 mg calcium carbonate 500 mg/5 mL (as 1,250 mg feeding tube Q6H PRN 02/10/24 01/02/25 Unknown History calcium carb 1,250 mg/5 mL) oral Heartburn suspension folic acid 1 mg tablet 1 mg feeding tube DAILY 02/10/24 01/02/25 01/01/25 07:05 History 1 mg ipratropium 0.5 mg-albuterol 3 mg 3 ml inhalation Q6H PRN Shortness 02/10/24 01/02/25 Unknown History (2.5 mg base)/3 mL nebulization Of Breath soln magnesium citrate (Citroma oral 296 ml feeding tube DAILY PRN 02/10/24 01/02/25 Unknown History solution) Constipation thiamine HCl (vitamin B1) 100 mg 100 mg feeding tube DAILY 02/10/24 01/02/25 01/01/25 08:10 History tablet 100 mg acetaminophen 650 mg/20.3 mL oral 650 mg feeding tube Q4H PRN Pain 03/30/24 01/02/25 12/24/24 00:10 History suspension (Scale Score 1-3) 650 mg aspirin 81 mg chewable tablet 81 mg feeding tube DAILY 03/30/24 01/02/25 01/01/25 08:05 History 81 mg finasteride 5 mg tablet 5 mg feeding tube DAILY 10/18/24 01/02/25 01/01/25 08:10 History 5 mg glycopyrrolate 2 mg tablet 2 mg feeding tube Q8H 10/18/24 01/02/25 01/01/25 17:00 History 2 mg ondansetron HCl 4 mg tablet 4 mg feeding tube Q6H PRN nausea 10/18/24 01/02/25 10/15/24 00:50 History and vomiting 4 mg Allergies Allergy/AdvReac Type Severity Reaction Status Date / Time tramadol AdvReac Intermediate Anxiety Verified 01/01/25 22:14 clonazepam AdvReac Unknown drowsiness Verified 01/01/25 22:14 Review of Systems Review of Systems: A 10 system review of systems was completed on the patient and is negative except for what is stated in the HPI. Nursing and ancillary documentation was reviewed. [facility] Past Medical History Medical History Pneumonia Acute lactic acidosis History of multiple strokes Residual expressive aphasia, dysphagia, and left-sided weakness. Esophagitis Anemia Aspiration pneumonia Elevated LFTs Atrial fibrillation with rapid ventricular response Thrombocytopenia Rash of face Lung collapse Right Mucus plugging of bronchi Increased tracheal secretions Epilepsy Intractable seizure disorder Status epilepticus Severe sepsis Tracheitis Sepsis with acute hypoxic respiratory failure Acute kidney injury UTI (urinary tract infection) Acute pancreatitis Diarrhea Cholecystitis Pancreatitis 09/2024 Deep venous thrombosis of upper extremity Benign prostatic hyperplasia Esophageal diverticulum Gastroparesis Iron deficiency anemia Vascular dementia with psychotic disturbance Surgical History Surgical History History of gastrostomy tube placement (07/09/23) History of tracheostomy History of left above knee amputation Family History Family History Other Unknown family medical history Social History Social History Social History: Surrogate medical decision maker: Adriane Hilliard, sibling. Code status: Full code. 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 HEAD: Normocephalic, atraumatic. EYES: PERRLA and EOMI. ENT: Nares clear, no rhinorrhea or epistaxis. Mucous membranes moist. NECK: Supple. Tracheostomy in place CHEST: Clear to auscultation. No respiratory distress. HEART: Regular rate and rhythm. No murmur heard. Normal peripheral pulses. ABDOMEN: Soft, nontender, nondistended, normal active bowel sounds. EXTREMITIES: Normal range of motion. No edema. SKIN: Warm, dry, no rash. NEURO: No new focal deficits. Alert and oriented x3. PSYCH: Normal mood and affect. Course Vital Signs Vital signs: Vital Signs Temperature 36.6 C 01/28/25 03:05 Pulse Rate 74 01/28/25 03:05 Respiratory Rate 22 H 01/28/25 03:05 Blood Pressure 170/91 H 01/28/25 03:05 Pulse Oximetry 100 01/28/25 03:05 Oxygen Delivery Venturi Mask 01/28/25 03:05 Oxygen Flow Rate 4 01/28/25 03:05 Temperature 36.6 C 01/28/25 03:05 Pulse Rate 74 01/28/25 03:05 Respiratory Rate 22 H 01/28/25 03:05 Blood Pressure 170/91 H 01/28/25 03:05 Pulse Oximetry 100 01/28/25 03:05 Oxygen Delivery Venturi Mask 01/28/25 03:05 Oxygen Flow Rate 4 01/28/25 03:05 Procedures Feeding Tube Replacement Feeding Tube #1: Feeding Tube Placement Date: 01/28/25 Feeding Tube Placement Time: 03:34 Type of Tube: gastrostomy Insertion Site Prior to Procedure: clean Tube Used for Reinsertion: Bard [place] Tube Size (F): 20 Balloon size (mL): 10 Verification of Placement: auscultation, KUB and gastrografin injection Tube Secured by: tape/dressing Patient Tolerated Procedure: well Medical Decision Making Vital Signs Vital Signs: Vital Signs Temperature 36.6 C 01/28/25 03:05 Pulse Rate 74 01/28/25 03:05 Respiratory Rate 22 H 01/28/25 03:05 Blood Pressure 170/91 H 01/28/25 03:05 Pulse Oximetry 100 01/28/25 03:05 Oxygen Delivery Venturi Mask 01/28/25 03:05 Oxygen Flow Rate 4 01/28/25 03:05 Temperature 36.6 C 01/28/25 03:05 Pulse Rate 74 01/28/25 03:05 Respiratory Rate 22 H 01/28/25 03:05 Blood Pressure 170/91 H 01/28/25 03:05 Pulse Oximetry 100 01/28/25 03:05 Oxygen Delivery Venturi Mask 01/28/25 03:05 Oxygen Flow Rate 4 01/28/25 03:05 Discharge Plan Discharge Clinical Impression: Gastrostomy tube dysfunction Patient Disposition: Acute Care Hospital Condition: Stable Patient Language: Fijian Prescriptions: No Action bisacodyl 10 mg Suppository 10 mg RECTAL DAILY PRN (Reason: Constipation) Rx Instructions: if no results for MOM sennosides [senna] 8.6 mg Tablet 8.6 mg feeding tube BID guaifenesin 100 mg/5 mL liquid 300 mg feeding tube Q12H PRN (Reason: Cough) magnesium hydroxide [Milk of Magnesia] 400 mg/5 mL Suspension 30 ml feeding tube HS PRN (Reason: Constipation) Rx Instructions: If no BM in 3 days metoclopramide HCl [Reglan] 10 mg tablet 10 mg feeding tube Q6H PRN (Reason: nausea and vomiting) Qty: 30 0RF lidocaine [Lidoderm] 5 % Adhesive Patch,Medicated 1 patch transdermal DAILY Qty: 30 0RF omeprazole 40 mg capsule,delayed release(DR/EC) 40 mg feeding tube DAILY Qty: 30 0RF metoprolol tartrate 25 mg tablet 37.5 mg feeding tube BID Qty: 60 0RF amoxicillin-pot clavulanate 250-62.5 mg/5 mL suspension for reconstitution 10 ml feeding tube Q8H 3 Days Qty: 90 0RF doxycycline hyclate 100 mg capsule 100 mg feeding tube BID 3 Days Qty: 6 0RF polyethylene glycol 3350 17 gram/dose powder 17 g feeding tube DAILY PRN (Reason: Constipation) atorvastatin 40 mg tablet 40 mg feeding tube HS ipratropium-albuterol 0.5 mg-3 mg(2.5 mg base)/3 mL solution for nebulization 3 ml INHALATION Q6H PRN (Reason: Shortness Of Breath) thiamine HCl (vitamin B1) 100 mg Tablet 100 mg feeding tube DAILY magnesium citrate [Citroma] Solution 296 ml feeding tube DAILY PRN (Reason: Constipation) Rx Instructions: if no results from enema folic acid 1 mg tablet 1 mg feeding tube DAILY calcium carbonate 500 mg/5 mL (1,250 mg/5 mL) Suspension 1,250 mg feeding tube Q6H PRN (Reason: Heartburn) aspirin 81 mg Tablet,Chewable 81 mg feeding tube DAILY acetaminophen 650 mg/20.3 mL Suspension 650 mg feeding tube Q4H PRN (Reason: Pain (Scale Score 1-3)) finasteride 5 mg tablet 5 mg feeding tube DAILY glycopyrrolate 2 mg tablet 2 mg feeding tube Q8H ondansetron HCl 4 mg tablet 4 mg feeding tube Q6H PRN (Reason: nausea and vomiting) amlodipine [Norvasc] 5 mg Tablet 5 mg feeding tube DAILY 30 Days Qty: 30 1RF isosorbide dinitrate 5 mg Tablet 5 mg feeding tube TID 30 Days Qty: 90 1RF levetiracetam 100 mg/mL solution 2,000 mg feeding tube BID 30 Days Qty: 0 1RF lacosamide 10 mg/mL solution 250 mg feeding tube BID 30 Days Qty: 200 2RF Follow-up/Referrals: Tay Arroyo [Other]
[2025-01-28 03:45] VITALS: RESP 16; O2SAT 99
--- NOTE | 2025-01-28 04:04 | PC.NURSE ---
EDP replaced G tube. xray confirmed placement
--- NOTE | 2025-01-28 04:05 | PC.NURSE ---
This RN called pt facility to update about pt POC and arrival back to the facility
[2025-01-28 04:08] VITALS: BP 159/81; PULSE 69; RESP 21; O2SAT 100
[2025-01-28 04:09] VITALS: BP 159/81; PULSE 69; RESP 21; O2SAT 100
== END 2025-01-28 04:12 ==
PROVIDERS: Emergency Provider Emergency Medicine
DX: T85.528A Displacement of other gastrointestinal prosthetic devices, implants and grafts, initial encounter (principal); I69.920 Aphasia following unspecified cerebrovascular disease; I69.921 Dysphasia following unspecified cerebrovascular disease; I69.954 Hemiplegia and hemiparesis following unspecified cerebrovascular disease affecting left non-dominant side; D64.9 Anemia, unspecified; I48.91 Unspecified atrial fibrillation; G40.909 Epilepsy, unspecified, not intractable, without status epilepticus; Z87.440 Personal history of urinary (tract) infections; F01.50 Vascular dementia, unspecified severity, without behavioral disturbance, psychotic disturbance, mood disturbance, and anxiety; Y83.3 Surgical operation with formation of external stoma as the cause of abnormal reaction of the patient, or of later complication, without mention of misadventure at the time of the procedure; Y73.1 Therapeutic (nonsurgical) and rehabilitative gastroenterology and urology devices associated with adverse incidents
CPT/HCPCS: 43762; 99283

== ENCOUNTER 2025-04-07 03:34 | Emergency (ER) | payer OTHER, SELFPAY ==
[2025-04-07 03:36] VITALS: BP 157/89; PULSE 99; RESP 18; TEMP 36.6; O2SAT 100
--- NOTE | 2025-04-07 03:40 | ED.GENADULT ---
HPI - General Adult General Chief complaint: Unspecified Stated complaint: Puhi tinge from trach Time Seen by Provider: 04/07/25 03:39 Source: patient and EMS Mode of arrival: EMS Limitations: no limitations History of Present Illness HPI narrative: This is a 65-year-old male with history of CAD, chronic respiratory failure status post tracheostomy placement, G-tube dependency, epilepsy who presents the ED for trach problem. Per EMS, patient apparently had dislodged his trach earlier today and longterm staff had tried to replace it but then began to have some pink tinged sputum. Per EMS, he has been in no distress and they have section a very small amount of pink sputum. Patient has no complaints at this time. Denies shortness of breath, chest pain, cough. Related Data Home Medications ?Medication ?Instructions ?Recorded ?Confirmed ?Last Taken ?Type polyethylene glycol 3350 17 17 g feeding tube DAILY PRN 12/18/22 01/02/25 01/01/25 17:10 History gram/dose oral powder Constipation 17 grams bisacodyl 10 mg rectal suppository 10 mg RECTAL DAILY PRN Constipation 02/11/23 01/02/25 10/17/24 01:50 History 10 mg sennosides 8.6 mg tablet (senna) 8.6 mg feeding tube BID 02/11/23 01/02/25 01/01/25 08:05 History 8.6 mg guaifenesin 100 mg/5 mL oral liquid 300 mg feeding tube Q12H PRN Cough 07/08/23 01/02/25 10/17/24 05:50 History 300 mg magnesium hydroxide 400 mg/5 mL 30 ml feeding tube HS PRN 12/13/23 01/02/25 09/11/24 12:10 History oral suspension (Milk of Magnesia) Constipation 30 mL atorvastatin 40 mg tablet 40 mg feeding tube HS 02/10/24 01/02/25 01/01/25 20:45 History 40 mg calcium carbonate 500 mg/5 mL (as 1,250 mg feeding tube Q6H PRN 02/10/24 01/02/25 Unknown History calcium carb 1,250 mg/5 mL) oral Heartburn suspension folic acid 1 mg tablet 1 mg feeding tube DAILY 02/10/24 01/02/25 01/01/25 07:05 History 1 mg ipratropium 0.5 mg-albuterol 3 mg 3 ml inhalation Q6H PRN Shortness 02/10/24 01/02/25 Unknown History (2.5 mg base)/3 mL nebulization Of Breath soln magnesium citrate (Citroma oral 296 ml feeding tube DAILY PRN 02/10/24 01/02/25 Unknown History solution) Constipation thiamine HCl (vitamin B1) 100 mg 100 mg feeding tube DAILY 02/10/24 01/02/25 01/01/25 08:10 History tablet 100 mg acetaminophen 650 mg/20.3 mL oral 650 mg feeding tube Q4H PRN Pain 03/30/24 01/02/25 12/24/24 00:10 History suspension (Scale Score 1-3) 650 mg aspirin 81 mg chewable tablet 81 mg feeding tube DAILY 03/30/24 01/02/25 01/01/25 08:05 History 81 mg finasteride 5 mg tablet 5 mg feeding tube DAILY 10/18/24 01/02/25 01/01/25 08:10 History 5 mg glycopyrrolate 2 mg tablet 2 mg feeding tube Q8H 10/18/24 01/02/25 01/01/25 17:00 History 2 mg ondansetron HCl 4 mg tablet 4 mg feeding tube Q6H PRN nausea 10/18/24 01/02/25 10/15/24 00:50 History and vomiting 4 mg Allergies Allergy/AdvReac Type Severity Reaction Status Date / Time tramadol AdvReac Intermediate Anxiety Verified 01/01/25 22:14 clonazepam AdvReac Unknown drowsiness Verified 01/01/25 22:14 Review of Systems Review of Systems: Gen.: Denies fevers or chills Eyes: Denies eye pain or visual change ENT: Denies congestion Respiratory: Denies shortness of breath or cough CV: Denies chest pain or palpitations GI: Denies abdominal pain nausea, emesis or diarrhea denies burning, urgency, frequency or hematuria Musculoskeletal: Denies back pain or muscle pain Neuro: Denies numbness, tingling, weakness or focal weakness Skin: Denies rash Except as documented, all other systems reviewed and negative [facility] Past Medical History Medical History Pneumonia Acute lactic acidosis History of multiple strokes Residual expressive aphasia, dysphagia, and left-sided weakness. Esophagitis Anemia Aspiration pneumonia Elevated LFTs Atrial fibrillation with rapid ventricular response Thrombocytopenia Rash of face Lung collapse Right Mucus plugging of bronchi Increased tracheal secretions Epilepsy Intractable seizure disorder Status epilepticus Severe sepsis Tracheitis Sepsis with acute hypoxic respiratory failure Acute kidney injury UTI (urinary tract infection) Acute pancreatitis Diarrhea Cholecystitis Pancreatitis 09/2024 Deep venous thrombosis of upper extremity Benign prostatic hyperplasia Esophageal diverticulum Gastroparesis Iron deficiency anemia Vascular dementia with psychotic disturbance Surgical History Surgical History History of gastrostomy tube placement (07/09/23) History of tracheostomy History of left above knee amputation Family History Family History Other Unknown family medical history Social History Social History Social History: Surrogate medical decision maker: Adriane Hilliard, sibling. Code status: Full code. 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 No surrounding bleeding. Very small amount of pink tinged sputum. No respiratory distress. Clear to auscultation bilaterally with no rhonchi wheezing or rales. CARDIOVASCULAR: Regular rate and rhythm without murmurs rubs or gallops. ABDOMINAL: Soft, nontender, nondistended, no rebound or guarding MUSCULOSKELETAl: Moves all extremities. No clubbing, cyanosis or edema. NEURO: Awake and alert. Following commands, speech normal, no focal deficits SKIN:: Warm, dry. No rashes lesions or abrasions PSYCHIATRIC: Normal affect/mood, Course Vital Signs Vital signs: Vital Signs Temperature 97.8 F 04/07/25 03:36 Pulse Rate 99 04/07/25 03:36 Respiratory Rate 18 04/07/25 03:36 Blood Pressure 157/89 H 04/07/25 03:36 Pulse Oximetry 100 04/07/25 03:36 Oxygen Delivery Room Air 04/07/25 03:36 Temperature 97.8 F 04/07/25 03:36 Pulse Rate 99 04/07/25 03:36 Respiratory Rate 18 04/07/25 03:36 Blood Pressure 157/89 H 04/07/25 03:36 Pulse Oximetry 100 04/07/25 03:36 Oxygen Delivery Room Air 04/07/25 03:36 Medical Decision Making MDM Narrative Medical decision making narrative: 65-year-old male Presenting for trach problems. On initial evaluation patient was in no acute distress afebrile, hemodynamic stable. Differentials include but are not limited to: Dislodged trach, tracheostomy bleeding, innominate artery bleeding Notable exam findings: Trach in place with no surrounding bleeding or drainage. Lungs clear to auscultation breathing. Patient is in no distress at this time. He has no complaints at this time. Heart and lungs are clear. Suspect that he had some mild tracheal irritation from the dislodged trach with manipulation of the tracheostomy. There is no appreciable bleeding at this time. Additional workup is not indicated. Patient was deemed appropriate for discharge back to longterm. Vital Signs Vital Signs: Vital Signs Temperature 97.8 F 04/07/25 03:36 Pulse Rate 99 04/07/25 03:36 Respiratory Rate 18 04/07/25 03:36 Blood Pressure 157/89 H 04/07/25 03:36 Pulse Oximetry 100 04/07/25 03:36 Oxygen Delivery Room Air 04/07/25 03:36 Temperature 97.8 F 04/07/25 03:36 Pulse Rate 99 04/07/25 03:36 Respiratory Rate 18 04/07/25 03:36 Blood Pressure 157/89 H 04/07/25 03:36 Pulse Oximetry 100 04/07/25 03:36 Oxygen Delivery Room Air 04/07/25 03:36 Discharge Plan Discharge Clinical Impression: Tracheostomy care Patient Disposition: Home Condition: Stable Instructions: Antibiotic Form, Tracheostomy Care (ED) Additional Instructions: A small amount of pink mucous is expected after trach dislodgement and replacement. Monitor for bright red blood or more intense bleeding. Return to the ED for new or worsening symptoms. Patient Language: [place] Citizen Prescriptions: No Action bisacodyl 10 mg Suppository 10 mg RECTAL DAILY PRN (Reason: Constipation) Rx Instructions: if no results for MOM sennosides [senna] 8.6 mg Tablet 8.6 mg feeding tube BID guaifenesin 100 mg/5 mL liquid 300 mg feeding tube Q12H PRN (Reason: Cough) magnesium hydroxide [Milk of Magnesia] 400 mg/5 mL Suspension 30 ml feeding tube HS PRN (Reason: Constipation) Rx Instructions: If no BM in 3 days metoclopramide HCl [Reglan] 10 mg tablet 10 mg feeding tube Q6H PRN (Reason: nausea and vomiting) Qty: 30 0RF lidocaine [Lidoderm] 5 % Adhesive Patch,Medicated 1 patch transdermal DAILY Qty: 30 0RF omeprazole 40 mg capsule,delayed release(DR/EC) 40 mg feeding tube DAILY Qty: 30 0RF metoprolol tartrate 25 mg tablet 37.5 mg feeding tube BID Qty: 60 0RF amoxicillin-pot clavulanate 250-62.5 mg/5 mL suspension for reconstitution 10 ml feeding tube Q8H 3 Days Qty: 90 0RF doxycycline hyclate 100 mg capsule 100 mg feeding tube BID 3 Days Qty: 6 0RF polyethylene glycol 3350 17 gram/dose powder 17 g feeding tube DAILY PRN (Reason: Constipation) atorvastatin 40 mg tablet 40 mg feeding tube HS ipratropium-albuterol 0.5 mg-3 mg(2.5 mg base)/3 mL solution for nebulization 3 ml INHALATION Q6H PRN (Reason: Shortness Of Breath) thiamine HCl (vitamin B1) 100 mg Tablet 100 mg feeding tube DAILY magnesium citrate [Citroma] Solution 296 ml feeding tube DAILY PRN (Reason: Constipation) Rx Instructions: if no results from enema folic acid 1 mg tablet 1 mg feeding tube DAILY calcium carbonate 500 mg/5 mL (1,250 mg/5 mL) Suspension 1,250 mg feeding tube Q6H PRN (Reason: Heartburn) aspirin 81 mg Tablet,Chewable 81 mg feeding tube DAILY acetaminophen 650 mg/20.3 mL Suspension 650 mg feeding tube Q4H PRN (Reason: Pain (Scale Score 1-3)) finasteride 5 mg tablet 5 mg feeding tube DAILY glycopyrrolate 2 mg tablet 2 mg feeding tube Q8H ondansetron HCl 4 mg tablet 4 mg feeding tube Q6H PRN (Reason: nausea and vomiting) amlodipine [Norvasc] 5 mg Tablet 5 mg feeding tube DAILY 30 Days Qty: 30 1RF isosorbide dinitrate 5 mg Tablet 5 mg feeding tube TID 30 Days Qty: 90 1RF levetiracetam 100 mg/mL solution 2,000 mg feeding tube BID 30 Days Qty: 0 1RF lacosamide 10 mg/mL solution 250 mg feeding tube BID 30 Days Qty: 200 2RF Follow-up/Referrals: Tay Arroyo [Other]
--- OUTSIDE RECORDS SUMMARY | 2025-04-07 03:47 | XMS_ITS | Clinical Summary ---
Author Organization [facility] [place] [facility] Address [address] [place] [address] Care Team Providers Care Vibrating Screed Operator Name Role Phone Marielena Smallwood MD [...] 06/28/2024 Assessment & Plan (06/28/2024 11:42 AM COMMUNITY RELATIONS COORDINATOR): Now back on full TF's sugars running mildly high. Monitor with q4 accuchecks and SSI. Hypophosphatemia 06/27/2024 Assessment & Plan (06/28/2024 11:44 AM COMMUNITY RELATIONS COORDINATOR): <0.7 ? 2/2 refeeding syndrome. Started on neutraphos 2pkg QID 06/26. Still Phos<0.7 06/27. Tx with IV NaPhos 30mmoles and cont per tube replacement and monitor closely. -06/28: Phos=3.3, reduce nuetraphos to 1 PKG BID and monitor History of DVT (deep vein thrombosis) 06/26/2024 Assessment & Plan (06/26/2024 1:32 PM COMMUNITY RELATIONS COORDINATOR): -On anticoagulation with Eliquis 5 mg po BID for hx of DVT -per chart review hx of Left Subclavian vein DVT diagnosed 08/01/23 H/O: GI bleed 06/25/2024 Assessment & Plan (06/26/2024 1:32 PM COMMUNITY RELATIONS COORDINATOR): - recent admission at [facility] ( 06-07-24 [...] pt was scheduled for outpatient endoscopy at [facility] in June 2024 with recs for PPI b.i.d. for 8 weeks, pantoprazole pack 40 mg BID and continued on home anticoagulation with eliquis It appears he was not started on PPI at SNF where still getting pepcid per SNF order report summary -cont PPI BID and will prescribe at discharge. Patient to f/up with GI at [facility] as peviously arranged Tracheostomy in place 06/25/2024 Assessment & Plan (06/26/2024 1:36 PM COMMUNITY RELATIONS COORDINATOR): Tracheostomy dependence, has a Shiley #4 cuffed. Pt followed at [facility], per notes trach in place for pulmonary toilet due to his copious secretions and ongoing aspiration of his secretions. -needing frequent suctioning -sats stable on 28% FIO2 by HHTC -Was getting VEST at SNF Low grade fever 06/20/2024 Assessment & Plan (06/26/2024 1:34 PM COMMUNITY RELATIONS COORDINATOR): Low-grade fever and tachycardia, softer BP after [...] 06/17/2024 Assessment & Plan (06/28/2024 11:43 AM COMMUNITY RELATIONS COORDINATOR): -patient at admission with a G tube, was getting continous tube feedings at [facility] and not tolerating, -was changed to bolus [...] underwent G tube conversion to GJ at [facility] 12/14/22 (additional documented GJ tube procedures [facility] most recent 09/09/23). Pt ' feeding tube fell off and pt had 18 [place] G tube placed at [facility] ED on 04/21/24 (records on care everywhere)and after that he has not tolerated well tube feedings per discussion with his sister Ms Hilliard,Adriane [phone] POA - consulted IR 06-20-24 for conversion [...] goal 06/25, adjust FWF per hydration status, rn women services to follow up -On full TF's-osmolite 1.5. Phos repleted. Copious oral secretions 06/13/2024 Assessment & Plan (06/26/2024 1:29 PM COMMUNITY RELATIONS COORDINATOR): Patient on chronic glycopyrrolate due to secretions, held at admission 07/01 to potential for constipation with plan to add back when he's had a bowel movements -resume on 06-19- hold on 06-20 due to somnolence. Suction PRN - restart glycopyrrolate 1mg BID 06/26 and monitor Abdominal pain 06/12/2024 Assessment & Plan (06/26/2024 1:23 PM COMMUNITY RELATIONS COORDINATOR): -p/w abdominal distention from SNF to ED on 06-12 ,reported biliary emesis per [facility] (approximately 300 cc) , not associated fevers or change in bowel habits. Feeding tube placed to gravity drainage in ED H&P notes regular bowel movements. CT scan on 06-12 in ED with stool in the rectum and sigmoid. [place] likely constipation contributing to the patient's abdominal [...] 06/12/2024 Assessment & Plan (06/26/2024 12:08 AM COMMUNITY RELATIONS COORDINATOR): Complicated by left LE AKA. History of CVA (cerebrovascular accident) 2020 Assessment & Plan (06/26/2024 1:32 PM COMMUNITY RELATIONS COORDINATOR): - hx of RT parietal CVA- hx of dementia Cont asa and statin Essential hypertension 12/11/2020 Assessment & Plan (06/26/2024 1:30 PM COMMUNITY RELATIONS COORDINATOR): - on metoprolol and norvasc, held with soft BP 06-19 - resume metoprolol 06-21 -resume amlodipine 06-22 - Monitor Hyperlipidemia 12/11/2020 Assessment & Plan (06/12/2024 3:47 PM COMMUNITY RELATIONS COORDINATOR): - Continue home statin Seizure 12/10/2020 Assessment & Plan (06/26/2024 1:36 PM COMMUNITY RELATIONS COORDINATOR): History of seizure disorder secondary to traumatic brain injury. Currently on valproate, Vimpat, Keppra and Cobazam - Continue home medication, valproate level low at admit 48 on 06-12, 48 on 06-13, Valproic acid level 76 06-19 prior to dose, lacosamide level 1.4 on 06/12, 9.6 on 06-19 Followed by Neurology at [facility] Cognitive communication deficit 08/25/2020 Cerebrovascular [...] Encounters Date Type Department Care Team Description 01/30/2025 Orders Only [facility] Cardiology [address] [place] [address] Mariah Carcamo NP 01/08/2025 Orders Only [facility] Cardiology [address] [place] [address] Chai Lentz MD from Last 3 Months Surgical History Surgery Date Site/Laterality Comments GJ-TUBE EXCHANGE 09/09/2023 N/A GJ-TUBE EXCHANGE 02/25/2023 N/A GJ-TUBE EXCHANGE 12/14/2022 N/A G TO GJ-TUBE REPLACEMENT 06/22/2024 N/A Medical History Medical History Date Comments Arthritis Stroke (HCC) Hypertension Wheelchair bound 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) Followed up at [facility] ([facility]) Degenerative cervical spinal stenosis Family History Medical History Relation Name Comments Coronary artery disease Father Stroke Father Hypertension Mother Relation Name Status Comments Father Mother Social History Tobacco Use Types Packs/Day Years Used Date Smoking Tobacco: Former Cigarettes Smokeless Tobacco: Current Tobacco Cessation:Counseling Given: Yes [facility] Utilities Answer Date Recorded In [...] any clubs o r organizations such as yarsanism groups, unions, fraternal or athletic groups, or [...] on file Legal Sex Male 6:11 AM COMMUNITY RELATIONS COORDINATOR Gender Identity Not on file Sexual Orientation Not on file Last Filed Vital Signs Vital Sign Reading Time Taken Comments Blood Pressure 145/83 07/09/2024 6:00 AM COMMUNITY RELATIONS COORDINATOR Pulse 91 07/09/2024 6:00 AM COMMUNITY RELATIONS COORDINATOR Temperature 36.5 C (97.7 F) 07/09/2024 6:31 AM COMMUNITY RELATIONS COORDINATOR Respiratory Rate 10 07/09/2024 6:00 AM COMMUNITY RELATIONS COORDINATOR Oxygen Saturation 100% 07/09/2024 6:00 AM COMMUNITY RELATIONS COORDINATOR Inhaled Oxygen Concentration - - Weight 79.8 kg (176 lb) 07/09/2024 2:16 AM COMMUNITY RELATIONS COORDINATOR Height 182.9 cm (6') 07/09/2024 2:16 AM COMMUNITY RELATIONS COORDINATOR Body Mass Index 23.87 07/09/2024 2:16 AM COMMUNITY RELATIONS COORDINATOR Plan of Treatment Health Maintenance Due Date Last Done Comments Albumin Creatinine Ratio, Urine 1961 Colon Cancer Screening-Colonoscopy 1961 Prostate Cancer Screening-PSA 1961 Dilated Eye Exam 1961 Foot Exam 1961 Hepatitis B Screening 1979 Regular Well Visit/Exam 18-64 1979 Zoster Vaccine (1 of 2) 2011 Pneumococcal vaccine <65 (2 of 2 - PCV) 02/03/2017 02/04/2016, 08/13/2015, 02/07/2015 Covid-19 Vaccine (4 - 2024-2 6 season) 2025 04/06/2021, 07/02/2020, 06/11/2020 Influenza Vaccine (#1) 2025 [...] Diagnosis Comments EGFR STAT 07/08/2024 8:56 PM COMMUNITY RELATIONS COORDINATOR HEPATITIS C ANTIBODY Routine 06/26/2024 3:21 PM COMMUNITY RELATIONS COORDINATOR HEMOGLOBIN A1C Routine 06/12/2024 3:30 PM COMMUNITY RELATIONS COORDINATOR TNI WITH LIPID PANEL Routine 08/24/2017 4:57 PM CDT from Last 3 Months or Most Recently Relevant to Health Maintenance Results * eGFR (07/08/2024 8:56 PM COMMUNITY RELATIONS COORDINATOR) eGFR >90 >=60 mL/min/1. 73 m2 Comment: [...] last reviewed 2021. Blood 07/08/2024 8:56 PM COMMUNITY RELATIONS COORDINATOR 07/08/2024 9:26 PM COMMUNITY RELATIONS COORDINATOR us Naa Tam MD LAB BLOOD ORDERABLES Fin al Result Performing Organization Address [facility] Co de Phone Number [facility] Department [email or web address] [place] [address] * Hepatitis C antibody Blood (06/26/2024 3:21 PM COMMUNITY RELATIONS COORDINATOR) Pathologist [facility] Hep C Ab Nonreactive Nonreactive Comment:Antibodies to HCV no t detected. Does NOT exclude the possibility of recent exposure to HCV. Current interpretive data was last revised on 22 Blood 06/26/2024 3:21 PM COMMUNITY RELATIONS COORDINATOR 06/26/2024 3:41 PM COMMUNITY RELATIONS COORDINATOR us Kami Dupont MD LAB MICROBIOLOGY - GENERA L ORDERABLES Final Result Performing Organization Address [facility] de Phone Number [facility] [email or web address] [place] [address] * Hemoglobin A1c (06/12/2024 3:30 PM COMMUNITY RELATIONS COORDINATOR) Hgb A1C 4.9 4.0 - 5.6 % [...] equivalent to a fasting glucose. Blood 06/12/2024 3:3 0 PM COMMUNITY RELATIONS COORDINATOR 06/12/2024 5:10 PM COMMUNITY RELATIONS COORDINATOR Ryan Jauregui MD LAB BLOOD ORDERABLES Final Resul t [facility] Department [place] [address] * TNI with LIPID PANEL (08/24/2017 4:57 PM CDT) Troponin I < 0.300 0.000 - 0.300 ng/mL 08/24/2017 5:29 PM CDT [facility] HISTORICAL RESULTS Comment: Reference using JERRICA Chemiluminescence Negative: Repeat in 4-6 hours as indicated. Triglycerides 34 0 - 199 mg/dL 08/24/2017 5:30 PM T [facility] HISTORICAL RESULTS Comment:12 hr pc highly avani mmended for Triglyceride Cholesterol 129 0 - 199 mg/dL 08/24/2017 5:30 PM T [facility] HISTORICAL RESULTS Comment: Borderline: 200-239 High Risk: >239 HDL Cholesterol 71 mg/dL 8 5:30 PM T [facility] HISTORICAL RESULTS Comment: Reference Ranges: Males: >=40 mg/dL Females: >=50 mg/dL LDL Cholesterol, Calc 51 0 - 130 mg/dL 08/24/2017 5:30 PM T [facility] HISTORICAL RESULTS Comment:High Risk > 159 mg/d L Cholesterol/HDL Ratio 1.8 08/24/2017 5:30 PM T [facility] HISTORICAL RESULTS Comment: Cholesterol / HDL Ratio 3.5:1 or less is desirable. Cholesterol / HDL Ratio greater than 5:1 is considered higher risk for developing heart disease. 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 Source: [facility]. 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 Source: [facility]. 09/18/22 Acinetobacter os 09/18/2022 Insurance [facility] Advance Directives For more information, please contact: [phone] Documents on File Type Date Recorded Patient Glove Machine Operator Expl anation ADVANCE DIRECTIVE 10/08/2012 12:00 AM SANDRA R OF [employer] PHYSICIAN FINANCIAL/MEDICAL * Full Code (Latest Code Status on File) Date Activated Date Inactivated Comments 06/12/2024 3:22 PM 06/28/2024 9:30 PM * Full Code Date Activated Date Inactivated Comments 12/10/2020 9:05 AM 12/13/2020 10:44 PM Care Teams Vibrating Screed Operator Relationship Specialty Start Date End Date Marielena Smallwood MD [facility] DEPT [place] [address] PCP - General Family Practice 07/08/24
--- OUTSIDE RECORDS SUMMARY | 2025-04-07 03:48 | XMS_ITS | Encounter Summary ---
Author Organization [facility] Health Address [address] [place] [address] Care Team Providers Care Cyber Legal Advisor Name Role Phone Elizabeth Sullivan RN Unavailable Jack Arroyo MD Primary Care Provider Rosie marsh Reason for Visit * Reason Onset Date Comments Appointment 11/05/2024 Encounter Details Date Type Department Care Team (Late st Contact Info) Description 11/05/2024 Telephone [facility] - Centralized Scheduling [facility] [place] [address] Alden Hurtado MD [address] [facility] [address] [place] [address] Appointment Social History Tobacco Use Types Packs/Day [...] and heating? Not hard at all 08/06/2024 [facility] [place] [facility] - Occupational Stress [...] in a residential (including now)? No 06/19/2023 Housing Stability Vital [...] living in a residential (including now)? No 08/06/2024 Sex and Gender Information Value Date Recorded Sex Assigned at Not on file Legal Sex Male 5:07 PM CATTLE DRIVER Gender Identity Not on file Sexual Orientation Not on file documented as of this encounter Functional Status * Is person deaf or have serious hearing difficulty? Answer Date of Assessment Author No 07/17/2024 2:53 PM CATTLE DRIVER Mahogany Jay RN * Is person blind or have serious difficulty seeing? Answer Date of Assessment Author No 07/17/2024 2:53 PM CATTLE DRIVER Mahogany Jay RN * Does person have serious difficulty walking/climbing stairs? Answer Date of Assessment Author Yes 07/17/2024 2:53 PM CATTLE DRIVER Mahogany Jay RN * Does person have difficulty dressing/bathing? Answer Date of Assessment Author Yes 07/17/2024 2:53 PM CATTLE DRIVER Mahogany Jay RN * Does person have difficulty doing errands alone? Answer Date of Assessment Author Yes 07/17/2024 2:53 PM CATTLE DRIVER Mahogany Jay RN documented as of this encounter Mental Status * Does person have difficulty concentrating/remembering/making decisions? Answer Entry Date Author Yes 07/17/2024 2:53 PM CATTLE DRIVER Mahogany Jay RN documented in this encounter Miscellaneous Notes [...] Care Team (Late st Contact Info) Description 05/15/2025 11:00 AM CATTLE DRIVER Office Visit [facility] - Neurology [address] [place] [address] Yana Rm APRN-LICENSED OCCUPATIONAL THERAPY ASSISTANT [address] [place] [address] documented as of this encounter Visit Diagnoses [...] within [facility]. 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 John Seipel Infection Prevention 09/18/2022 MDRO Hx 09/18/2022 11/27/2024 MRSA 06/11/2023 06/11/2023 11/27/2024 7:23 AM CDT MRSA Hx 06/11/2023 11/27/2024 documented as of this encounter Care Teams Cyber Legal Advisor Relationship Specialty Start Date End Date Jack Arroyo MD [address] [place] [address] PCP - General 10/17/24 Elizabeth Sullivan, RN Chief Mate 10/14/17 documented as of this encounter
--- OUTSIDE RECORDS SUMMARY | 2025-04-07 03:48 | XMS_ITS | Data Portability ---
Demographics Address [address] [place] [address] Home Phone Mobile Phone Email Address Preferred Language en Marital Status Never Jewish Affiliation Unknown Race Black or Irma rican Ethnic Group Not or Lati no [facility] Address [address] [place] [address] Assessment No assessment recorded. Plan of Treatment Reminders Order Date Submit Date Provider Last Modified By Organization Details Last Modified Time Details Appointments None recorded. Lab None recorded. Referral None recorded. Procedures None recorded. Surgeries None recorded. Imaging None recorded. Medication Orders ibuprofen 800 mg tablet 2015 016 [facility] [employer], [address] [place] [address], [id number], 6 18:35:08 Prozac 20 mg capsule 2014 015 [facility] [employer], [address] [place] [address], [id number], 5 16:10:15 tramadol 50 mg tablet 2014 015 [facility] [employer] [facility], [address] [place] [address], [id number], 5 12:13:56 Flomax 0.4 mg capsule 2014 015 [employer] [address] [place] [address], [id number], 5 16:10:16 Ambien 10 mg tablet 2014 015 [place] [employer] [facility], [address] [place] [address], [id number], 5 10:37:28 Patient TargetsNo targets recorded. Patient Instructions Encounter Date Encounter Id Patient Instructions Last Modified By Organization Details Last Modified Time 06/10/2014 [id number] stroke: care instructions Not available 06/21/2014 17:33:19 insomnia: care instructions Not available 06/21/2014 17:33:19 epilepsy: care instructions Not available 06/21/2014 17:33:19 09/18/2014 [id number] epilepsy: care instructions dsalmond Not available 09/18/2014 17:05:10 back care and preventing injuries: care instructions dsalmond Not available 09/18/2014 17:05:10 04/16/2015 [id number] epilepsy: care instructions campadu Not available 04/16/2015 16:05:30 06/12/2015 [id number] stroke: care instructions dsalmond Not available 06/13/2015 12:21:31 epilepsy: care instructions dsalmond Not available 06/13/2015 12:21:31 learning about high blood pressure dsalmond Not available 06/13/2015 12:21:31 Reason for Referral None Reported. Results Created Date Observation Date Name Description Value Unit Range Abnormal Flag Note LastModifiedBy Organization Detail LastModifiedTime 06/12/19 16 06/12/2015 CBC w/ auto diff WBC 5.9 K/uL 3.4-10 .8 Not Available [facility] (Lab) [address] [place], [address], 06/12/2015 19:52:35 06/12/19 16 06/12/2015 CBC w/ auto diff red blood count 4.6 M/uL 4.5-6. 3 Not Available [facility] (Lab) [address], [place], [address], 06/12/2015 19:52:35 06/12/19 16 06/12/2015 CBC w/ auto diff hemoglobin 14.7 g/dL 13.5-1 7.5 Not Available [facility] (Lab) [address] [place], [address], 06/12/2015 19:52:35 06/12/19 16 06/12/2015 CBC w/ auto diff hematocrit 44.5 % 40.0-5 2.0 Not Available [facility] (Lab) [address] [place], [address], 06/12/2015 19:52:35 06/12/19 16 06/12/2015 CBC w/ auto diff MCV 97 fL 80-95 high Not Available [facility] (Lab) [address] [place], [address], 06/12/2015 19:52:35 06/12/19 16 06/12/2015 CBC w/ auto diff MCH 32 pg 27-32 Not Available [facility] (Lab) [address] [place], [address], 06/12/2015 19:52:35 06/12/19 16 06/12/2015 CBC w/ auto diff MCHC 33 g/dL 32-36 Not Available [facility] (Lab) [address] [place], [address], 06/12/2015 19:52:35 06/12/19 16 06/12/2015 CBC w/ auto diff platelets 219 K/uL 155-37 9 Not Available [facility] (Lab) [address] [place], [address], 06/12/2015 19:52:35 06/12/19 16 06/12/2015 CBC w/ auto diff RDW 11.6 % 11.5-1 4.5 Not Available [facility] (Lab) [address] [place], [address], 06/12/2015 19:52:35 06/12/19 16 06/12/2015 CBC w/ auto diff MPV 11.1 fL 8.9-12 .7 Not Available [facility] (Lab) [address] [place], [address], 06/12/2015 19:52:35 06/12/19 16 06/12/2015 CBC w/ auto diff neutrophils absolute 2.5 K/uL 1.4-7. 0 Not Available [facility] (Lab) [address] [facility], [place], [address], 06/12/2015 19:52:35 06/12/19 16 06/12/2015 CBC w/ auto diff lymphs (absolute) 2.6 K/uL 0.7-3. 1 Not Available [facility] (Lab) [address] [facility], [place], [address], 06/12/2015 19:52:35 06/12/19 16 06/12/2015 CBC w/ auto diff monocytes (absolute) 0.5 K/uL 0.1-0. 9 Not Available [facility] (Lab) [address] [facility], [place], [address], 06/12/2015 19:52:35 06/12/19 16 06/12/2015 CBC w/ auto diff eos (absolute) 0.2 K/uL 0.0-0. 4 Not Available [facility] (Lab) [address] [place], [address], 06/12/2015 19:52:35 06/12/19 16 06/12/2015 CBC w/ auto diff baso (absolute) 0.0 K/uL 0.1-0. 3 low Not Available [facility] (Lab) [address] [facility], [place], [address], 06/12/2015 19:52:35 06/12/19 16 06/12/2015 CBC w/ auto diff neut % 43.1 % 40.0-7 4.0 Not Available [facility] (Lab) [address] [place], [address], 06/12/2015 19:52:35 06/12/19 16 06/12/2015 CBC w/ auto diff lymphs % 44.6 % 14.0-4 6.0 Not Available [facility] (Lab) [address] [place], [address], 06/12/2015 19:52:35 06/12/19 16 06/12/2015 CBC w/ auto diff mono % 8.7 % 4.0-12 .0 Not Available [facility] (Lab) [address], [place], [address], 06/12/2015 19:52:35 06/12/19 16 06/12/2015 CBC w/ auto diff eos % 3 % <=5 Not Available [facility] (Lab) [address] [facility], [place], [address], 06/12/2015 19:52:35 06/12/19 16 06/12/2015 CBC w/ auto diff baso % 0.2 % 0.1-1. 1 Not Available [facility] (Lab) [address] [facility], [place], [address], 06/12/2015 19:52:35 06/12/19 16 06/13/2015 HbA1c (hemo globi n A1c), blood hemoglobin A1C 5.4 % 4.8-5. 6 . Pre-d iabet es: 5.7 - 6.4 Diabe ivet: >6.4 Glyce [place] contr ol for adult s with diabe ivet: <7.0 Not Available [facility] (Lab) [address] [facility], [place], [address], 06/13/2015 04:12:44 06/12/19 16 06/13/2015 T4, total , serum thyroxine T4 4.7 ug/dL 4.5-12 .0 Not Available [facility] (Lab) [address] [facility], [place], [address], 06/13/2015 05:19:09 06/12/1906/13/2015 CMP, serum or plasm a glucose, serum 98 mg/dL 65-99 Not Available [facility] ([facility]) [address] [facility], [place], [address], 06/13/2015 05:19:11 06/12/19 16 06/13/2015 CMP, serum or plasm a BUN 7 mg/dL 6-24 Not Available [facility] (Lab) [address] [facility], [place], [address], 06/13/2015 05:19:11 06/12/19 16 06/13/2015 CMP, serum or plasm a creatinine, serum 0.78 mg/dL 0.76-1 .27 Not Available [facility] (Lab) [address], [place], [address], 06/13/2015 05:19:11 06/12/19 16 06/13/2015 CMP, serum or plasm a eGFR if nonafricn AM 102 mL/mi n/1.7 3 >59 Not Available [facility] (Lab) [address], [place], [address], 06/13/2015 05:19:11 06/12/19 16 06/13/2015 CMP, serum or plasm a eGFR if 118 mL/mi n/1.7 3 >59 Not Available [facility] (Lab) [address], [place], [address], 06/13/2015 05:19:11 06/12/19 16 06/13/2015 CMP, serum or plasm a BUN/creatini ne ratio 9 9-20 Not Available [facility] (Lab) [address], [place], [address], 06/13/2015 05:19:11 06/12/19 16 06/13/2015 CMP, serum or plasm a sodium, serum 141 mmol/ L 134-14 4 Not Available [facility] (Lab) [address], [place], [address], 06/13/2015 05:19:11 06/12/1906/13/2015 CMP, serum or plasm a potassium, serum 4.5 mmol/ L 3.5-5. 2 Not Available [facility] (Lab) [address], [place], [address], 06/13/2015 05:19:11 06/12/1906/13/2015 CMP, serum or plasm a chloride, serum 101 mmol/ L 97-108 Not Available [facility] (Lab) [address] [place], [address], 06/13/2015 05:19:11 06/12/19 16 06/13/2015 CMP, serum or plasm a carbon dioxide, total 23 mmol/ L 18-29 Not Available [facility] (Lab) [address], [place], [address], 06/13/2015 05:19:11 06/12/19 16 06/13/2015 CMP, serum or plasm a calcium, serum 9.5 mg/dL 8.7-10 .2 Not Available [facility] (Lab) [address], [place], [address], 06/13/2015 05:19:11 06/12/1906/13/2015 CMP, serum or plasm a protein total serum 7.2 g/dL 6.0-8. 5 Not Available [facility] (Lab) [address], [place], [address], 06/13/2015 05:19:11 06/12/19 16 06/13/2015 CMP, serum or plasm a albumin, serum 4.5 g/dL 3.5-5. 5 Not Available [facility] (Lab) [address], [place], [address], 06/13/2015 05:19:11 06/12/19 16 06/13/2015 CMP, serum or plasm a globulin total 2.7 g/dL 1.5-4. 5 Not Available [facility] (Lab) [address] [place], [address], 06/13/2015 05:19:11 06/12/1906/13/2015 CMP, serum or plasm a A/G ratio 1.7 1.1-2. 5 Not Available [facility] (Lab) [address] [place], [address], 06/13/2015 05:19:11 06/12/19 16 06/13/2015 CMP, serum or plasm a bilirubin total <0.2 mg/dL 0.0-1. 2 Not Available [facility] (Lab) [address] [place], [address], 06/13/2015 05:19:11 06/12/19 16 06/13/2015 CMP, serum or plasm a alkaline phosphatase ser 105 IU/L 39-117 Not Available [facility] (Lab) [address] [place], [address], 06/13/2015 05:19:11 06/12/19 16 06/13/2015 CMP, serum or plasm a AST (SGOT) 20 IU/L 0-40 Not Available [facility] ([facility]) [address] [place], [address], 06/13/2015 05:19:11 06/12/19 16 06/13/2015 CMP, serum or plasm a ALT (SGPT) 18 IU/L 0-44 Not Available [facility] (Lab) [address] [place], [address], 06/13/2015 05:19:11 06/12/19 16 06/13/2015 TSH, serum or plasm a TSH 2.010 uIU/m L 0.450- 4.500 Not Available [facility] (Lab) [address] [place], [address], 06/13/2015 05:19:12 06/12/1906/13/2015 PSA, serum or plasm [...] t be inter prete d as absol [place] evide nce of the prese nce or absen ce of truong mena se. Not Available [facility] (Lab) [address] [place], [address], 06/13/2015 05:19:13 06/12/19 16 06/13/2015 lipid panel w/ direc t LDL, serum cholesterol, total 215 mg/dL 100-19 9 high Not Available [facility] (Lab) [address] [place], [address], 06/13/2015 05:19:14 06/12/19 16 06/13/2015 lipid panel w/ direc t LDL, serum triglyceride s 73 mg/dL 0-149 Not Available [facility] (Lab) [address] [place], [address], 06/13/2015 05:19:14 06/12/19 16 06/13/2015 lipid panel w/ direc t LDL, serum HDL cholesterol 85 mg/dL >39 Accor ding to ATP-I II Guide lines , HDL-C >59 mg/dL is consi dered a negat phan risk facto r for CHD. Not Available [facility] (Lab) [address] [place], [address], 06/13/2015 05:19:14 06/12/19 16 06/13/2015 lipid panel w/ direc t LDL, serum VLDL cholesterol margarita 15 mg/dL 5-40 Not Available [facility] (Lab) [address] [place], [address], 06/13/2015 05:19:14 06/12/19 16 06/13/2015 lipid panel w/ direc t LDL, serum LDL cholesterol calc 115 mg/dL 0-99 high Not Available [facility] (Lab) [address] [place], [address], 06/13/2015 05:19:14 06/12/19 16 06/13/2015 lipid panel w/ direc t LDL, serum lipid calculation Not Available [facility] [address] [place], [address], 06/13/2015 05:19:14 09/22/19 15 09/21/2014 imagi ng/di agnos tic resul t No observ ation record ed. [address] , [place], [address], 09/30/2014 11:19:53 09/26/19 15 imagi ng/di agnos tic resul t No observ ation record ed. [email or web address] Not Available 2014 11:08:28 10/01/19 15 09/27/2014 imagi ng/di agnos tic resul t No observ ation record ed. [address] [place], [address], 10/03/2014 11:08:29 11/09/19 15 11/08/2014 imagi ng/di agnos tic resul t No observ ation record ed. [email or web address] Not Available 2014 15:10:11 12/02/19 15 12/01/2014 imagi ng/di agnos tic resul t No observ ation record ed. [email or web address] Not Available 2014 10:38:41 01/03/20 15 12/31/2014 imagi ng/di agnos tic resul t No observ ation record ed. [facility] (Rad) [address] [place], [address], 01/02/2015 09:50:17 01/07/20 15 01/05/2015 imagi ng/di agnos tic resul t No observ ation record ed. [email or web address] [facility], [place], [address], 01/06/2015 09:32:38 03/10/20 15 03/10/2015 imagi ng/di agnos tic resul t No observ ation record ed. [email or web address] [facility] (Rad) [address] [place], [address], 03/10/2015 12:50:58 03/11/20 15 03/11/2015 CV EKG 12 lead SHARONAMOJGAN MD: KIRILL ANN MD 6905 ACCT: [id number] ADMIT/ SERVIC E DATE: DISCHA RGE DATE: : 1959 PT TYPE: ADM IN SEX: M ORD SITE: [address] TEST DATE: 2014-05 PAT NAME: MOJGAN ADAME MENT: CARD 40 PATIEN T ID: [id number] ROOM: [facility] GENDER : MALE TECHNI MARIA ISABEL: CDN : 01-[address] BY: CADE MOHAMUD S SETH ORDER NUMBER : [id number] CJ Lu MD: FELIPE SELF MEASUR EMENTS INTERV ALS AXIS RATE: 145 P: 81 LA: 118 QRS: 19 QRSD: 82 T: 70 QT: 282 QTC: 438 INTERP RETIVE STATEM ENTS SINUS TACHYC ARDIA WITH SHORT LA INTERV AL WITH OCCASI ONAL VENTRI CULAR PREMAT URE COMPLE XES WITH OCCASI ONAL SUPRAV ENTRIC ULAR AMBER SEPTAL MYOCAR DIAL INFARC TION, PROBAB LY OLD NONSPE CIFIC ST SEGMEN T ABNORM ALITIE S, CANNOT RULE OUT ISCHEM IA ELECTR ONICAL LY SIGNED BY FELIPE SELF AT 17:03: 07 CDT [facility] [address], [place], [address], 05/07/2015 04:08:47 03/11/20 15 03/11/2015 xr chest 1 view [email or web address] MERCEDESLINDSEY MOJGAN SELF 6905 ADMIT/ SERVIC E DATE: ACCT: [id number] DISCHA RGE DATE: : 1959 SEX: M ORD SITE: [facility] PT TYPE: ADM IN JING MUHAMMAD MD: KIRILL ANN MD STUDY DATE REPORT # ORDER # EXT ORDER ID [id number] 1.002 PROC CODE: [id number] ORT PROCED URE DESCRI PTION: XR CHEST 1 VIEW PORTAB LE I MPRESS ION: NO ACUTE INFILT RATE. EXAMIN ATION: PORTAB LE CHEST X-RAY 1 VIEW ACCESS ION: [id number] EXAM DATE/T TRAVON: 2014 8:36 PM CLINIC [...] SIGNED BY: MARYBEL CROUCH ER10/07/2014 8:54 PM [facility] One [facility], [place], [address], 05/07/2015 04:08:47 03/12/20 15 03/12/2015 MRI brain wo MOJGAN TABOR 6905 ADMIT/ SERVIC E DATE: ACCT: [id number] DISCHA RGE DATE: : 1959 SEX: M ORD SITE: [facility] PT TYPE: ADM IN ORDERI NG MD: KIRILL ANN MD STUDY DATE REPORT # ORDER # EXT ORDER ID [id number] 1.001 PROC CODE: BRNWOC PROCED URE DESCRI [...] BRAIN WITHOU T CONTRA ST. ACCESS ION: [id number] EXAM DATE/T TRAVON: 2014 11:23 AM CLINIC [...] CADE GRAY 11:51 AM build [facility] One [facility], [place], [address], 05/07/2015 04:08:47 06/19/19 16 06/19/2015 imagi ng/di agnos tic resul t No observ ation record ed. [facility] Not Available 2015 09:33:44 06/19/19 16 06/19/2015 imagi ng/di agnos tic resul t No observ ation record ed. [facility] (Lab) [address] [place] [address] [place], [address], 06/19/2015 09:33:44 06/19/19 16 06/19/2015 imagi ng/di agnos tic resul t No observ ation record ed. [facility] (Lab) [address] [place] [address] [place], [address], 06/20/2015 09:57:26 06/20/19 16 06/19/2015 imagi ng/di agnos tic resul t No observ ation record ed. [address] [place], [address], 06/20/2015 10:01:56 05/09/20 19 05/09/2019 US, les aldana id arter y No observ ation record ed. [facility] [address], [place], [address], 05/09/2019 17:59:20 Result Notes None recorded. Problems Name Problem SNOMED Code Status Onset Date Resolution Date Notes Provider Name and Address Organization Details Recorded Time Low back pain 784684794 Active Burke Ann MD Attn: Zulemalivia lu,[address] [facility], [place], [address], [place] [facility] 5 16:09:38 Essential hypertension 14861834 Active Burke Ann MD Attn: Austin tabitha,[address] [facility], [place], [address], [facility] 6 18:34:53 Anxiety 28367405 Active Burke Ann MD Attn: [place] tabitha,[address] [facility], [place], [address], [facility] 5 15:03:30 Laceration - injury 251469625 Active Burke Ann MD Attn: [place] tabitha,[address] [facility], [place], [address], [place] [facility] 5 15:31:20 Seizure disorder 844259872 Active Burke Ann MD Attn: [place] tabitha,[address] [facility], [place], [address], [facility] 6 18:34:53 Cerebrovascula r accident 266044527 Active Burke Ann MD Attn: [place] lu,[address] [facility], [place], [address], [place] [facility] 6 18:34:53 Insomnia 792440278 Active Burke Ann MD Attn: [place] lu,[address] [facility], [place], [address], [facility] 5 15:31:20 Problem Notes Documentation Provider Name and Address Organization Details Recorded Time Consult Note : MOJGAN TABOR MD: ACCT: [id number] ADMIT/SERVICE DATE: 06/25/16 DISCHARGE DATE: 06/25/16 : 1960 PT TYPE: DIS IN SEX: M ORD SITE: [facility] CHART DOCUMENT DATE OF CONSULTATION: 06/25/2016 HISTORY [...] 06/26/2016 12:55 P JOAO CRAWFORD M.D. P #[id number] P/MA CC: DEBRA MUÑOZ M.D. KRISTEN REINEKE-PIPER, MD [facility] 06/29/2016 10:56:44 Medical Equipment None Reported. [...] cm 20.2 kg/m2 78 /min 18 /min 58189.1 5469 g 142/90 mm[Hg] Darlene Luan [facility] 5 13:46:55 Date Recorded Heart rate Body height Respiratory rate Body mass index (BMI) Body weight Body temperature Systolic And Diastolic Provider Name and Address Organization Details Last Updated DateTime 6 92 /min 170.18 cm 20 /min 21.5 kg/m2 42756.1 5469 g 98 [degF] 102/78 mm[Hg] Leonor Arauz MA [facility] 6 16:31:07 Date Recorded Respiratory rate Body weight Body temperature Body height Body mass index (BMI) Heart rate Systolic And Diastolic Provider Name and Address Organization Details Last Updated DateTime 5 22 /min 82453.9 67553 g 98.7 [degF] 170.18 cm 21.4 kg/m2 80 /min 148/94 mm[Hg] Leonor Arauz MA [facility] 5 15:57:48 Date Recorded Body height Body mass index (BMI) Body weight Heart rate Respiratory rate Body temperature Systolic And Diastolic Provider Name and Address Organization Details Last Updated DateTime 5 170.18 cm 21.5 kg/m2 39679.1 5469 g 88 /min 20 /min 98.2 [...] Skin Problems N Anemia N Heart Attack ([place]) N Diabetes N Seizures/Epilepsy Y Asthma N Allergies N Hepatitis N Osteoporosis N Heart Failure N Past Encounters Encounter ID Performer Location Encounter Start Date Encounter Closed Date Diagnosis/Indication Diagnosis SNOMED-CT Code Diagnosis ICD10 Code Diagnosis IMO Codes Diagnosis Note [id number] Burke Ann MD [facility] (Adult/Fa m Med) [address] [place] [address] 06/10/2014 13:26:21 06/10/2014 18:13:06 Laceration - injury 586335052 Seizure disorder 055640297 Cerebrovas cular accident 194320681 Insomnia 305859977 [id number] Burke Ann MD [facility] (Adult/Fa m Med) [address] [place] [address] 09/18/2014 14:45:50 09/18/2014 18:01:22 Seizure disorder 985269602 Anxiety 66864248 Low back pain 614013073 [id number] Burke Ann MD [facility] (Adult/Fa m Med) [address] [place] [address] 04/16/2015 11:24:38 04/16/2015 17:33:17 Essential hypertension 44586277 I10 Anxiety 90812577 F41.9 Seizure disorder 8442391 02 G40.909 [id number] Burke Ann MD [facility] (Adult/Fa m Med) [address] [place] [address] 06/12/2015 15:25:04 06/27/2015 12:04:51 Essential hypertension 38733453 I10 Seizure disorder 7176323 02 G40.909 Cerebrovas cular accident 387663681 I63.9 Health Concerns Section Related Observation LastModified by Organization Detai ls LastModified Time None Recorded Concern Status LastModified by Organization Details LastModified Time None Recorded Advance Directives Directive None Recorded Payers Insurance Date Sequence Insurance Name Policy Number Policy Gilbert Covered Member ID Gilbert Member ID Guarantor Name 07/02/2016 1 [facility] PRIOR TO 11/27/2020 (MEDICAID REPLACEMENT - HMO) Mojgan Tabor [id number] Mojgan Mercedeslly Notes Date Note Type Note Provider Name and Address Organization Details Recorded Time 09/18/2014 text/html Musculoskeletal PainReported by PatientHPIFor location, patient reportspain is not radiating. For severity, patient reportsimproving. For associated symptoms, patient reportsno fever,no weak limbs,no tingling,no numbness of the legs/feet, andno incontinence. For adl (activities of daily living), patient reportsimprove with medication. Burke Ann MD Attn: Accounting,[address] [place], [address], [facility] 09/18/2014 16:09:59 04/16/2015 text/html COPDReported by PatientHPI:For severity, patient reportsnot limiting. For associated symptoms, patient reportsno snoring,no excessive daytime sleepiness,no arousals from sleep,no dyspnea,no decrease in exercise capacity,no fatigue,not coughing up sputum,no cough,no fever,no wheezing,no weight loss, andno depression. FOLLOW up care since stroke Burke Ann MD Attn: Accounting[address] [place], [address], [facility] 04/16/2015 15:03:31
[2025-04-07 04:40] VITALS: BP 165/88; PULSE 98; RESP 22; O2SAT 100
[2025-04-07 05:12] VITALS: O2SAT 100
== END 2025-04-07 05:49 ==
PROVIDERS: Emergency Provider Student in an Organized Health Care Education/Training Program
DX: Z43.0 Encounter for attention to tracheostomy (principal); G40.909 Epilepsy, unspecified, not intractable, without status epilepticus; I69.320 Aphasia following cerebral infarction; I69.391 Dysphagia following cerebral infarction; I69.354 Hemiplegia and hemiparesis following cerebral infarction affecting left non-dominant side; R13.10 Dysphagia, unspecified; F01.52 Vascular dementia, unspecified severity, with psychotic disturbance; I48.91 Unspecified atrial fibrillation; N40.0 Benign prostatic hyperplasia without lower urinary tract symptoms; K31.84 Gastroparesis; D50.9 Iron deficiency anemia, unspecified; Z93.1 Gastrostomy status; Z87.01 Personal history of pneumonia (recurrent); Z86.718 Personal history of other venous thrombosis and embolism; Z87.440 Personal history of urinary (tract) infections; Z89.612 Acquired absence of left leg above knee; Z79.899 Other long term (current) drug therapy; Z79.82 Long term (current) use of aspirin
CPT/HCPCS: 99281

== ENCOUNTER 2025-04-11 07:29 | Emergency (ER) | payer OTHER, SELFPAY ==
[2025-04-11] VITALS (16 sets, daily range): BP systolic 103–146; BP diastolic 81–96; PULSE 110–152; RESP 18–37; TEMP 36.4; O2SAT 96–100
--- NOTE | ~2025-04-11 | XR_ITS ---
EXAMINATION: XR chest 1V portable COMPARISON: No comparisons available. HISTORY: seizure FINDINGS: The lungs are clear, no effusion. No pneumothorax. Heart is normal size. Mediastinal and hilar contours are within normal limits. Bony thorax no acute abnormality. Miscellaneous: Tracheostomy in appropriate location. Impression: No acute cardiopulmonary abnormality. Reviewed, dictated and finalized at location P. S AND MERCHANDISING REPRESENTATIVE Impression: No acute cardiopulmonary abnormality.
--- NOTE | ~2025-04-11 | CT_ITS ---
CT HEAD NON-CONTRAST Clinical History: seizure Comparison: 11/24/2024 Technique: Unenhanced axial images skull base to vertex Coronal, sagittal reformats CT images acquired with automatic exposure control for dose reduction DLP: 605 mGy-cm Findings: Severe global atrophy. Right occipital encephalomalacia Diffuse white matter changes, typically chronic microvascular ischemic disease. Bilateral thalamic and basal ganglia lacunae Sulci, ventricles: Unremarkable. No intracerebral hemorrhage. No evidence acute territorial infarct. No mass effect, midline shift. Bony calvarium intact. Visualized paranasal sinuses: Right maxillary unopacified. Possible antrectomy. Mastoid air cells: Clear. IMPRESSION: 1. No acute intracranial findings. Reviewed, dictated and finalized at location R. R PAINT
--- NOTE | 2025-04-11 07:38 | ECG_ITS ---
Test Date: 2025-04-11 07:34:54 Measurements Intervals [place] Rate: 152 P: -15 CO: 136 QRS: -31 QRSD: 80 T: 91 QT: 312 QTc: 497 Interpretive Statements SINUS TACHYCARDIA WITH OCCASIONAL VENTRICULAR PREMATURE COMPLEXES INFERIOR MYOCARDIAL INFARCTION , OF INDETERMINATE AGE [40+ ms Q WAVE AND/OR ST/T ABNORMALITY IN II/aVF] ANTEROSEPTAL MYOCARDIAL INFARCTION , OF INDETERMINATE AGE [40+ ms Q WAVE IN V1-V4] Compared to ECG 01/05/2025 09:42:54 Myocardial infarct finding still present Electronically Signed On 04-11-2025 12:29:03 MATH AND SCIENCES DEPARTMENT CHAIR by Kota Mari M.D.
[2025-04-11 07:56] LABS: Hematocrit 43.9 % (42.0-52.0); Hemoglobin 14.4 g/dL (14.0-18.0); Immature Granulocyte Percent A 0.2 % (0-0.5); Lymphocytes Absolute Auto 1.80 K/mm3 (0.9-3.2); Mean Corpuscular HGB Conc 32.8 g/dl (32-36); Mean Corpuscular Hemoglobin 31.5 pg (26-34); Mean Corpuscular Volume 96.1 fl (80-100); Nucleated Red Blood Cells Absolute Auto 0.000 K/mm3 (0.0-0.012); Nucleated Red Blood Cells Perc 0.0 % (0.0-0.2); Platelet Count Result 209 k/mm3 (150-375); Red Blood Count 4.57 M/mm3 (4.6-6.20); White Blood Count 8.5 K/mm3 (4.5-10.0)
--- OUTSIDE RECORDS SUMMARY | 2025-04-11 08:00 | XMS_ITS | Encounter Summary ---
Author Organization [facility] Address [address] [place] [address] Care Team Providers Care Fresh Food Manager Name Role Phone Frank Toure MD Unavailable Misael Maradiaga DO Primary Care Provider [phone] Joyce Luevano NP Primary Care Provider Unavaila Marielena Adame MD Primary Care Provider [phone] Encounter Details Date Type Department Care Team (Late st Contact Info) Description 12/14/2018 Hospital Follow-up Call [facility] [place] [address] Cony Adan RN Social History Tobacco Use [...] on filedocumented in this encounter Care Teams Fresh Food Manager Relationship Specialty Start Date End Date Misael Maradiaga DO [address] [place] [address] PCP - General FAMILY PRACTICE 09/28/18 01/13/20 Joyce Luevano NP [address] [place] [address] PCP - General NURSE PRACTITIONER 01/14/20 10/26/23 Marielena Smallwood MD [address] [place] [address] PCP - General FAMILY PRACTICE 10/27/23 Frank Toure MD [address] [place] [address] Chivo Guardian Ad Litem CARDIOVASCULAR DISEASE 05/30/16 documented as of this encounter
--- OUTSIDE RECORDS SUMMARY | 2025-04-11 08:00 | XMS_ITS | Encounter Summary ---
Author Organization [facility] Health Address [address] [place] [address] Care Team Providers Care Road Machine Operator Name Role Phone Elizabeth Sullivan RN Unavailable [phone] Jack Arroyo MD Primary Care Provider Rosie marsh Reason for Visit * Reason Onset Date Comments Appointment 11/05/2024 Encounter Details Date Type Department Care Team (Late st Contact Info) Description 11/05/2024 Telephone [facility] - Centralized Scheduling [facility] [place] [address] Alden Hurtado MD [address] [facility] [address] [place] [address] Appointment Social History Tobacco Use Types Packs/Day [...] and heating? Not hard at all 08/06/2024 [facility] [place] [facility] - Occupational [...] in a assisted (including now)? No 06/19/2023 Housing Stability Vital Sign Answer Vinay e Recorded In the last 12 months, was t here a time when you were not able to pay the mortgage or rent on time? No 08/06/2024 In the past 12 months, how m any times have you moved where you were living? 1 08/06/2024 At any time in the past 12 m [facility], were you homeless or living in a assisted (including now)? No 08/06/2024 Sex and Gender Information Value Date Recorded Sex Assigned at Not on file Legal Sex Male 5:07 PM CYCLE SPECIALIST Gender Identity Not on file Sexual Orientation Not on file documented as of this encounter Functional Status * Is person deaf or have serious hearing difficulty? Answer Date of Assessment Author No 07/17/2024 2:53 PM CYCLE SPECIALIST Mahogany Jay RN * Is person blind or have serious difficulty seeing? Answer Date of Assessment Author No 07/17/2024 2:53 PM CYCLE SPECIALIST Mahogany Jay RN * Does person have serious difficulty walking/climbing stairs? Answer Date of Assessment Author Yes 07/17/2024 2:53 PM CYCLE SPECIALIST Mahogany Jay RN * Does person have difficulty dressing/bathing? Answer Date of Assessment Author Yes 07/17/2024 2:53 PM CYCLE SPECIALIST Mahogany Jay RN * Does person have difficulty doing errands alone? Answer Date of Assessment Author Yes 07/17/2024 2:53 PM CYCLE SPECIALIST Mahogany Jay RN documented as of this encounter Mental Status * Does person have difficulty concentrating/remembering/making decisions? 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 Source: [facility] 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 John Seipel Infection Prevention 09/18/2022 MDRO Hx 09/18/2022 11/27/2024 MRSA 06/11/2023 06/11/2023 11/27/2024 7:23 AM CDT MRSA Hx 06/11/2023 11/27/2024 documented as of this encounter Care Teams Road Machine Operator Relationship Specialty Start Date End Date Jack Arroyo MD [address] [place] [address] PCP - General 10/17/24 Elizabeth Sullivan, RN Road Test Examiner 10/14/17 documented as of this encounter
--- OUTSIDE RECORDS SUMMARY | 2025-04-11 08:00 | XMS_ITS | Encounter Summary ---
Author Organization [facility] Address [address] [place] [address] Care Team Providers Care Exhibition Carver Name Role Phone Frank Toure MD Unavailable Kayla Porras MANAGER GAS Primary Care Provider [phone] Misael Maradiaga DO Primary Care Provider [phone] Joyce Luevano MANAGER GAS Primary Care Provider Unavaila Marielena Adame MD Primary Care Provider [phone] Encounter Details Date Type Department Care Team (Latest Contact Info) Description 02/01/2018 Abstract [facility] , Jerica Cordon [...] on filedocumented in this encounter Care Teams Exhibition Carver Relationship Specialty Start Date End Date Kayla Porras NP [address] [place] [address] PCP - General 06/25/16 09/27/18 Misael Maradiaga DO [address] [place] [address] PCP - General FAMILY PRACTICE 09/28/18 01/13/20 Joyce [place] [address] PCP - General NURSE PRACTITIONER 01/14/20 10/26/23 Marielena Smallwood MD [address] [place] [address] PCP - General FAMILY PRACTICE 10/27/23 Frank Toure MD [facility] [place] [address] Chivo Lead Assistant Manager CARDIOVASCULAR DISEASE 05/30/16 documented as of this encounter
--- OUTSIDE RECORDS SUMMARY | 2025-04-11 08:00 | XMS_ITS | Clinical Summary ---
Author Organization [facility] Address [address] [place] [address] Care Team Providers Care Concrete Pile Driver Operator Name Role Phone Marielena Smallwood MD [...] 06/28/2024 Assessment & Plan (06/28/2024 11:42 AM DIRECTOR OF PSYCHOLOGY): Now back on full TF's sugars running mildly high. Monitor with q4 accuchecks and SSI. Hypophosphatemia 06/27/2024 Assessment & Plan (06/28/2024 11:44 AM DIRECTOR OF PSYCHOLOGY): <0.7 ? 2/2 refeeding syndrome. Started on neutraphos 2pkg QID 06/26. Still Phos<0.7 06/27. Tx with IV NaPhos 30mmoles and cont per tube replacement and monitor closely. -06/28: Phos=3.3, reduce nuetraphos to 1 PKG BID and monitor History of DVT (deep vein thrombosis) 06/26/2024 Assessment & Plan (06/26/2024 1:32 PM DIRECTOR OF PSYCHOLOGY): -On anticoagulation with Eliquis 5 mg po BID for hx of DVT -per chart review hx of Left Subclavian vein DVT diagnosed 08/01/23 H/O: GI bleed 06/25/2024 Assessment & Plan (06/26/2024 1:32 PM DIRECTOR OF PSYCHOLOGY): - recent admission at [facility] ( 06-07-24 [...] pt was scheduled for outpatient endoscopy at [facility] in June 2024 with recs for PPI b.i.d. for 8 weeks, pantoprazole pack 40 mg BID and continued on home anticoagulation with eliquis It appears he was not started on PPI at SNF where still getting pepcid per SNF order report summary -cont PPI BID and will prescribe at discharge. Patient to f/up with GI at [facility] as peviously arranged Tracheostomy in place 06/25/2024 Assessment & Plan (06/26/2024 1:36 PM DIRECTOR OF PSYCHOLOGY): Tracheostomy dependence, has a Shiley #4 cuffed. Pt followed at [facility], per notes trach in place for pulmonary toilet due to his copious secretions and ongoing aspiration of his secretions. -needing frequent suctioning -sats stable on 28% FIO2 by HHTC -Was getting VEST at SNF Low grade fever 06/20/2024 Assessment & Plan (06/26/2024 1:34 PM DIRECTOR OF PSYCHOLOGY): Low-grade fever and tachycardia, softer BP after [...] 06/17/2024 Assessment & Plan (06/28/2024 11:43 AM DIRECTOR OF PSYCHOLOGY): -patient at admission with a G tube, [...] underwent G tube conversion to GJ at [facility] 12/14/22 (additional documented GJ tube procedures at [facility] most recent 09/09/23). Pt ' feeding tube fell off and pt had 18 German G tube placed at [facility] ED on 04/21/24 (records on care everywhere)and after that he has not tolerated well tube feedings per discussion with his sister Ms Hilliard,Adriane [phone] POA - consulted IR 06-20-24 for conversion [...] goal 06/25, adjust FWF per hydration status, insurance loss adjuster to follow up -On full TF's-osmolite 1.5. Phos repleted. Copious oral secretions 06/13/2024 Assessment & Plan (06/26/2024 1:29 PM DIRECTOR OF PSYCHOLOGY): Patient on chronic glycopyrrolate due to secretions, held at admission 07/01 to potential for constipation with plan to add back when he's had a bowel movements -resume on 06-19- hold on 06-20 due to somnolence. Suction PRN - restart glycopyrrolate 1mg BID 06/26 and monitor Abdominal pain 06/12/2024 Assessment & Plan (06/26/2024 1:23 PM DIRECTOR OF PSYCHOLOGY): -p/w abdominal distention from SNF to ED on 06-12 ,reported biliary emesis per alf (approximately 300 cc) , not associated fevers or change in bowel habits. Feeding tube placed to gravity drainage in ED H&P notes regular bowel movements. CT scan on 06-12 in ED with stool in the rectum and sigmoid. [place] likely constipation contributing to the patient's abdominal [...] 06/12/2024 Assessment & Plan (06/26/2024 12:08 AM DIRECTOR OF PSYCHOLOGY): Complicated by left LE AKA. History of CVA (cerebrovascular accident) 2020 Assessment & Plan (06/26/2024 1:32 PM DIRECTOR OF PSYCHOLOGY): - hx of RT parietal CVA- hx of dementia Cont asa and statin Essential hypertension 12/11/2020 Assessment & Plan (06/26/2024 1:30 PM DIRECTOR OF PSYCHOLOGY): - on metoprolol and norvasc, held with soft BP 06-19 - resume metoprolol 06-21 -resume amlodipine 06-22 - Monitor Hyperlipidemia 12/11/2020 Assessment & Plan (06/12/2024 3:47 PM DIRECTOR OF PSYCHOLOGY): - Continue home statin Seizure 12/10/2020 Assessment & Plan (06/26/2024 1:36 PM DIRECTOR OF PSYCHOLOGY): History of seizure disorder secondary to traumatic brain injury. Currently on valproate, Vimpat, Keppra and Cobazam - Continue home medication, valproate level low at admit 48 on 06-12, 48 on 06-13, Valproic acid level 76 06-19 prior to dose, lacosamide level 1.4 on 06/12, 9.6 on 06-19 Followed by Neurology at [facility] Cognitive communication deficit 08/25/2020 Cerebrovascular accident 06/13/2019 [...] Department Care Team Description 01/30/2025 Orders Only [facility] Cardiology [address] [place] [address] Mariah Carcamo NP from Last 3 Months Surgical History Surgery Date Site/Laterality Comments GJ-TUBE EXCHANGE 09/09/2023 N/A GJ-TUBE EXCHANGE 02/25/2023 N/A GJ-TUBE EXCHANGE 12/14/2022 N/A G TO GJ-TUBE REPLACEMENT 06/22/2024 N/A Medical History Medical History Date Comments Arthritis Stroke (HCC) Hypertension Wheelchair bound 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) Followed up at [facility] ([facility]) Degenerative cervical spinal stenosis Family History Medical History Relation Name Comments Coronary artery disease Father Stroke Father Hypertension Mother Relation Name Status Comments Father Mother Social History Tobacco Use Types Packs/Day Years Used Date Smoking Tobacco: Former Cigarettes Smokeless Tobacco: Current Tobacco Cessation:Counseling Given: Yes [facility] Utilities Answer Date Recorded In the [...] any clubs o r organizations such as nondenominational groups, unions, fraternal or athletic groups, or [...] time in the past 12 m [facility], were you homeless or living in a fci (including now)? No 06/18/2024 Personal Safety Answer Date Recorded Have you ever been in or are you currently in a harmful physical or emotional relationship or is someone making you feel afraid or unsafe? Denies 07/08/2024 Sex and Gender Information Value Date Recorded Sex Assigned at Not on file Legal Sex Male 6:11 AM DIRECTOR OF PSYCHOLOGY Gender Identity Not on file Sexual Orientation Not on file Last Filed Vital Signs Vital Sign Reading Time Taken Comments Blood Pressure 145/83 07/09/2024 6:00 AM DIRECTOR OF PSYCHOLOGY Pulse 91 07/09/2024 6:00 AM DIRECTOR OF PSYCHOLOGY Temperature 36.5 C (97.7 F) 07/09/2024 6:31 AM DIRECTOR OF PSYCHOLOGY Respiratory Rate 10 07/09/2024 6:00 AM DIRECTOR OF PSYCHOLOGY Oxygen Saturation 100% 07/09/2024 6:00 AM DIRECTOR OF PSYCHOLOGY Inhaled Oxygen Concentration - - Weight 79.8 kg (176 lb) 07/09/2024 2:16 AM DIRECTOR OF PSYCHOLOGY Height 182.9 cm (6') 07/09/2024 2:16 AM DIRECTOR OF PSYCHOLOGY Body Mass Index 23.87 07/09/2024 2:16 AM DIRECTOR OF PSYCHOLOGY Plan of Treatment Health Maintenance Due Date Last Done Comments Albumin Creatinine Ratio, Urine 1961 Colon Cancer Screening-Colonoscopy 1961 Prostate Cancer Screening-PSA 1961 Dilated Eye Exam 1961 Foot Exam 1961 Hepatitis B Screening 1979 Regular Well Visit/Exam 18-64 1979 Zoster Vaccine (1 of 2) 2011 Pneumococcal vaccine <65 (2 of 2 - PCV) 02/03/2017 02/04/2016, 08/13/2015, 02/07/2015 Covid-19 Vaccine (2024-2 6 season) 2025 04/06/2021, 07/02/2020, 06/11/2020 Influenza [...] Diagnosis Comments EGFR STAT 07/08/2024 8:56 PM DIRECTOR OF PSYCHOLOGY HEPATITIS C ANTIBODY Routine 06/26/2024 3:21 PM DIRECTOR OF PSYCHOLOGY HEMOGLOBIN A1C Routine 06/12/2024 3:30 PM DIRECTOR OF PSYCHOLOGY TNI WITH LIPID PANEL Routine 08/24/2017 4:57 PM CDT from Last 3 Months or Most Recently Relevant to Health Maintenance Results * eGFR (07/08/2024 8:56 PM DIRECTOR OF PSYCHOLOGY) eGFR >90 >=60 mL/min/1. 73 m2 Comment: [...] last reviewed 2021. Blood 07/08/2024 8:56 PM DIRECTOR OF PSYCHOLOGY 07/08/2024 9:26 PM DIRECTOR OF PSYCHOLOGY us Naa Tam MD LAB BLOOD ORDERABLES Fin al Result Performing Organization Address [facility] Co de Phone Number [facility] [place] [address] * Hepatitis C antibody Blood (06/26/2024 3:21 PM DIRECTOR OF PSYCHOLOGY) Hep C Ab Nonreactive Nonreactive Comment:Antibodies to HCV no t detected. Does NOT exclude the possibility of recent exposure to HCV. Current interpretive data was last revised on 22 Blood 06/26/2024 3:21 PM DIRECTOR OF PSYCHOLOGY 06/26/2024 3:41 PM DIRECTOR OF PSYCHOLOGY Kami Dupont MD LAB MICROBIOLOGY - GENERA L ORDERABLES Final Result Performing Organization Address [facility] Co de Phone Number [facility] [place] [address] * Hemoglobin A1c (06/12/2024 3:30 PM DIRECTOR OF PSYCHOLOGY) Hgb A1C 4.9 4.0 - 5.6 % Estimated Average Glucose 94 mg/dL [facility] Comment: The ADA recommends reporting an estimated Average Glucose (eAG) with all Hemoglobin A1c results using the equation derived from a study of 507 normal and diabetic adults. Minority populations were underrepresented and children were not included. (Diabetes Care 2020; 43(S1): S66-S76). The eAG is not equivalent to a fasting glucose. Blood 06/12/2024 3:30 PM DIRECTOR OF PSYCHOLOGY 06/12/2024 5:10 PM DIRECTOR OF PSYCHOLOGY us Ryan Jauregui MD LAB BLOOD ORDERABLES Final Resul t [facility] Department [place] [address] * TNI with LIPID PANEL (08/24/2017 4:57 PM CDT) Troponin I < 0.300 0.000 - 0.300 ng/mL 08/24/2017 5:29 PM CDT [facility] HISTORICAL RESULTS Comment: Reference using JERRICA Chemiluminescence Negative: Repeat in 4-6 hours as indicated. Triglycerides 34 0 - 199 mg/dL 08/24/2017 5:30 PM T [facility] HISTORICAL RESULTS Comment:12 hr pc highly avani mmended for Triglyceride Cholesterol 129 0 - 199 mg/dL 08/24/2017 5:30 PM T [facility] HISTORICAL RESULTS Comment: Borderline: 200-239 High Risk: >239 HDL Cholesterol 71 mg/dL 8 5:30 PM T [facility] HISTORICAL RESULTS Comment: Reference Ranges: Males: >=40 mg/dL Females: >=50 mg/dL LDL Cholesterol, Calc 51 0 - 130 mg/dL 08/24/2017 5:30 PM T [facility] HISTORICAL RESULTS Comment:High Risk > 159 mg/d L Cholesterol/HDL Ratio 1.8 08/24/2017 5:30 PM T [facility] HISTORICAL RESULTS [...] Mejias LAB BLOOD ORDERABLES Lulu l Result [facility] HISTORICAL RESULTS from Last 3 Months or Most Recently Relevant to Health Maintenance Additional Health Concerns Infection Onset Date Last Indicated 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 Source: [facility]. 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 Source: [facility]. 09/18/22 Acinetobacter os 09/18/2022 Insurance Member Subscriber Plan / Payer (Ef fective 2018-Present) Name:Bi Tabor Relation to Subscriber:Self Name:Bi Tabor Payer ID:[id number] (NAIC) Group ID:Not on file Type:MEDICAID RISK OTHER Address: [address] [place], [place] [id number] [place] [address] [facility] Advance Directives For more information, please contact: [phone] Documents on File Type Date Recorded Patient Mounter [employer] Expl anation ADVANCE DIRECTIVE 10/08/2012 12:00 AM SANDRA R OF CARDIOVASCULAR OPERATING ROOM NURSE FINANCIAL/MEDICAL * Full Code (Latest Code Status on File) Date Activated Date Inactivated Comments 06/12/2024 3:22 PM 06/28/2024 9:30 PM * Full Code Date Activated Date Inactivated Comments 12/10/2020 9:05 AM 12/13/2020 10:44 PM Care Teams Concrete Pile Driver Operator Relationship Specialty Start Date End Date Marielena Smallwood MD [address] [facility] [place] [address] PCP - General Family Practice 07/08/24
--- OUTSIDE RECORDS SUMMARY | 2025-04-11 08:01 | XMS_ITS | Encounter Summary ---
Author Organization [facility] Address [address] [place] [address] Care Team Providers Care Meal Miller Name Role Phone Frank Toure MD Unavailable Joyce Luevano NP Primary Care Provider Unavaila Marielena Adame MD Primary Care Provider [phone] Encounter Details Date Type Department Care Team (Late st Contact Info) Description 02/23/2022 [employer]elli[employer] Message Enc [facility] Family Medicine - [address] [address] Joyce Luevano, HOOKER OFF Bi Tabor toenail Social History Tobacco Use [...] on filedocumented in this encounter Care Teams Meal Miller Relationship Specialty Start Date End Date Joyce Luevano NP [address] [place] [address] PCP - General NURSE PRACTITIONER 01/14/20 10/26/23 Marielena Smallwood MD [facility] [place] [address] PCP - General FAMILY PRACTICE 10/27/23 Frank Toure MD [address] [place] [address] Chivo Program Planner CARDIOVASCULAR DISEASE 05/30/16 documented as of this encounter
--- OUTSIDE RECORDS SUMMARY | 2025-04-11 08:01 | XMS_ITS | Clinical Summary ---
Author Organization [facility] Address [address] [place] [address] Care Team Providers Care Home Health Care Social Worker Name Role Phone Elizabeth Sullivan RN Unavailable [phone] Jack Arroyo MD Primary Care Provider Rosie marsh Source Comments [facility],non-owned Affiliates and Associated Physician Practices is amultiple site organization consisting of ambulatory clinics and hospital sitesin [place], [place], [place] and [place]. This disclosure is being madepursuant to the Care Everywhere program and may not contain all information available regarding this patient. Last updated 18.[facility] Allergies Active Allergy Reactions Criticality Noted Date [...] every 6 hours as needed 3 Active polyethylene glycol 3350 (Miralax) 17 [...] 90 days 1050 mL 2 5 Active Additional Information Patient taking differently: 1,500 mgEnteral Tube 2 TIMES DAILY, Reported on 01/14/2025 acetaminophen (Tylenol) 325 MG tablet 2 (two) tablets by Enteral Tube route 3 times daily Maximum allowable Acetaminophen amount = 4 Grams (4000 mg) / 24 hours. Pt takes 160 mg/5mL liquid which is the same as 325 mg tab 5 Active magnesium citrate (Citroma) 1.745 GM/30ML Take 296 mL by mouth once daily as needed (constipation (in the morning) if no results after enema) Active glycopyrrolate (Robinul) 2 MG tablet 1 (one) tablet by Per G Tube route every 8 hours Active senna-docusate (Senokot-S) 8.6-50 MG tablet Take 1 (one) tablet by mouth once daily Active traMADol (Ultram) 25 MG tablet 1 (one) tablet by Per G Tube route every 6 hours as needed for Pain (moderate to severe pain) Active isosorbide dinitrate (Isordil) 5 MG tablet 1 (one) tablet by Per G Tube route 3 times daily Active amLODIPine (Norvasc) 10 MG tabletIndicatio ns:Hypertension 0.5 (one-half) tablet by Enteral Tube route once daily Reasons: High Blood Pressure 5 Active metoprolol tartrate IR (Lopressor) 25 MG tablet 1 (one) tablet by Enteral Tube route 2 times daily 5 Active pantoprazole (Protonix) 40 MG packet 1 (one) packet by Enteral Tube route once daily for 60 days 5 Active guaiFENesin-dex tromethorphan (Robitussin DM) 100-10 MG/5ML syrupIndication s:Cough 10 mL by Per G Tube route 2 times daily as needed for Cough Reasons: Cough 5 Active metoclopramide (Reglan) 10 MG tabletIndicatio ns:Gastroparesi s 1 (one) tablet by Per G Tube route every 6 hours as needed for Nausea/Vomiting Reasons: Delayed or Stopped Emptying of Stomach 5 Active atorvastatin (Lipitor) 80 MG tablet 0.5 (one-half) tablet by Enteral Tube route at bedtime 5 Active lacosamide (Vimpat) 10 MG/ML oral solution 20 mL by Per G Tube route 2 times daily 5 Active Active Problems Problem Noted Date Diagnosed Date Asymptomatic bacteriuria 01/18/2025 Assessment & Plan (01/19/2025 1:33 PM CDT): UA 01/17 turbid, 2+ blood, 21-50 WBC, >100 RBC Urine cx 01/17 no growth. PLAN -was started on IV Cefe -> Cipro 01/18, d/c'd 01/18 after pt's sister confirmed patient has not had any hematuria or c/o dysuria, no UTI sxs. Pt w/ recurrent UTI hx, high suspicion for colonization. Pt afebrile & no leukocytosis on admit. Assessment & Plan (01/18/2025 6:22 PM CDT): UA 01/17 turbid, 2+ blood, 21-50 WBC, >100 RBC PLAN -was started on IV Cefe -> Cipro 01/18, d/c'd 01/18 after pt's sister confirmed patient has not had any hematuria or c/o dysuria, no UTI sxs. Pt w/ recurrent UTI hx, high suspicion for colonization. Pt afebrile & no leukocytosis on admit. Gastrostomy tube dysfunction 01/17/2025 Assessment & Plan (01/19/2025 1:33 PM CDT): S/p G/J reinsertion by IR 01/18/2025. PLAN -restarted home meds via G/J tube 01/18 after reinsertion -d/c'd mIVF w/ TF initiation 01/18 -no repeat AM labs ordered, initial labs stable Assessment & Plan (01/18/2025 6:22 PM CDT): S/p G/J reinsertion by IR 01/18/2025. PLAN -restart home meds via G/J tube 01/18 after reinsertion -d/c mIVF w/ TF initiation per client development director recs 01/18 -no repeat AM labs ordered, initial labs stable Assessment & Plan (01/17/2025 1:15 PM CDT): -IR following, plan for possible GJ-tube reinsertion tomorrow 01/18 (hold dvt ppx @ mdnt prior) -home meds held while awaiting GJ reinsertion, IV available meds ordered as appropriate (anti-seizure, PPI, PRNs) -mIVF started (LR @ 75mLs/hr) -no repeat AM labs ordered, initial labs stable Hypophosphatemia 12/09/2024 Assessment & Plan (12/10/2024 8:50 [...] GJ placement on 7/10 -Monitor for refeeding Hypokalemia 12/07/2024 Assessment & Plan (12/10/2024 8:50 AM CDT): Moderate Protein Calorie malnutrition in context of chronic disease was present on admission. Diagnosis is made in consultation with clinical nutrition who have implemented a care plan. -s/p GJ placement on 7/10 -Monitor for refeeding Assessment & Plan (12/09/2024 8:52 AM CDT): Moderate Protein Calorie malnutrition in context of chronic disease was present on admission. Diagnosis is made in consultation with clinical nutrition who have implemented a care plan. -s/p GJ placement on 7/10 -Monitor for refeeding Assessment & Plan (12/08/2024 [...] GJ placement on 7/10 -Monitor for refeeding Atypical chest pain 12/04/2024 [...] GI ppx: lansoprazole Code status: Full code [facility] Transfer Checklist: Reasons for Transfer to [facility]: Delay in Discharge/Difficult Discharge due to [...] Wound care instructions (if applicable) Per wound long term Meds Being Held/Why (if any): Depakote held due to complication of pancreatitis. Follow-up Tasks (to be completed prior to/for discharge, e.g. labs, imaging, follow-ups): IR G to GJ tube conversion Your team's Preferred Contact Information for any potential follow up questions: Yue Rojas, resident [phone] [facility] Consultants that need to be Informed Prior to Discharge (especially for follow up appointment scheduling, please include any contact info): N/a Checklist Items: [x] Patient and/or family notified of potential transfer to [facility] [x] Patient added to [facility] Transfer List [x] Routine labs updated [...] GI ppx: lansoprazole Code status: Full code [facility] Transfer Checklist: Reasons for Transfer to [facility]: Delay in Discharge/Difficult Discharge due to [...] Wound care instructions (if applicable) Per wound long term Meds Being Held/Why (if any): Depakote held due to complication of pancreatitis. Follow-up Tasks (to be completed prior to/for discharge, e.g. 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 Assessment & Plan (01/19/2025 1:33 PM CDT): -follows w/ ENT outpatient -s/p repeat MBS 01/18 while inpatient w/ recs to start pureed textures & thin liquids for practice/pleasure with DIABETES PHYSICIAN -respiratory therapy, titrate supplemental O2 to maintain O2 sat 90-98% via trach collar -trach care BID & PRN (facility to cont/resume baseline care after discharge) Assessment & Plan (01/18/2025 6:22 PM CDT): -follows w/ ENT outpatient -s/p repeat MBS 01/18 while inpatient w/ recs to start pureed textures & thin liquids for practice/pleasure with DIABETES PHYSICIAN (plan to d/w DIABETES PHYSICIAN bedside attempt 01/19) -respiratory therapy, titrate supplemental O2 to maintain O2 sat 90-98% via trach collar -trach care BID & PRN Assessment & Plan (01/17/2025 1:12 PM CDT): -follows w/ ENT outpatient -ENT DIABETES PHYSICIAN to complete previously scheduled OP MBS tomorrow 01/18 while inpatient (confirmed via phone 01/17 w/ Marcella Esteban) -respiratory therapy, titrate supplemental O2 to maintain O2 sat 90-98% via trach collar -trach care BID & PRN nursing order placed Dysphagia due to old cerebrovascular accident Generalized [...] heel, stage 3 10/17/2022 Dementia, vascular 10/17/2022 Assessment & Plan (01/19/2025 1:33 PM CDT): -home ASA -low stimulation bundle, reorient as needed Assessment & Plan (01/18/2025 6:22 PM CDT): -restart home ASA -low stimulation bundle, reorient as needed Assessment & Plan (01/17/2025 12:08 PM CDT): Chronic respiratory failure with hypoxia 09/24/ 023 Assessment & Plan (01/19/2025 1:33 PM CDT): -follows w/ ENT outpatient -s/p repeat MBS 01/18 while inpatient w/ recs to start pureed textures & thin liquids for practice/pleasure with DIABETES PHYSICIAN -respiratory therapy, titrate supplemental O2 to maintain O2 sat 90-98% via trach collar -trach care BID & PRN (facility to cont/resume baseline care after discharge) Assessment & Plan (01/18/2025 6:22 PM CDT): -follows w/ ENT outpatient -s/p repeat MBS 01/18 while inpatient w/ recs to start pureed textures & thin liquids for practice/pleasure with DIABETES PHYSICIAN (plan to d/w DIABETES PHYSICIAN bedside attempt 01/19) -respiratory therapy, titrate supplemental O2 to maintain O2 sat 90-98% via trach collar -trach care BID & PRN Assessment & Plan (01/17/2025 1:12 PM CDT): -follows w/ ENT outpatient -ENT DIABETES PHYSICIAN to complete previously scheduled OP MBS tomorrow 01/18 while inpatient (confirmed via phone 01/17 w/ Marcella Esteban) -respiratory therapy, titrate supplemental O2 to maintain O2 sat 90-98% via trach collar -trach care BID & PRN nursing order placed Assessment & Plan (12/10/2024 8:50 AM CDT): [...] in the context of: chronic disease (11/27/24 0900) Malnutrition Severity: Moderate Protein Calorie (11/27/24 09) [...] bilaterally d/t L AKA) Assessment & Plan (01/19/2025 1:33 PM CDT): -client development director following, confirmed MPCM dx criteria met -restarted TF per client development director recs 01/18 as above Assessment & Plan (01/18/2025 6:22 PM CDT): -client development director following, confirmed [facility] dx criteria met -restart TF per client development director recs 01/18 as above Assessment & Plan (12/10/2024 8:50 AM CDT): Moderate Protein Calorie malnutrition in context of chronic disease was present on admission. Diagnosis is made in consultation with clinical nutrition who have implemented a care plan. -s/p GJ placement on 10 -Monitor for refeeding Assessment & Plan (12/09/2024 [...] 10 -Monitor for refeeding Assessment & Plan (12/06/2024 [...] Severe protein-calorie malnutrition 03/11/2022 Seizure disorder 12/30/2021 Assessment & Plan (01/19/2025 12:47 PM CDT): -seizure precautions -cont home Keppra & Vimpat via G/J tube Assessment & Plan (01/18/2025 6:22 PM CDT): -seizure precautions -cont home Keppra & Vimpat via G/J tube Assessment & Plan (01/17/2025 12:08 PM CDT): -seizure precautions -cont home Keppra & Vimpat as IV while NPO (1:1 between PO & IV) COVID-19 04/14/2021 History of CVA (cerebrovascular accident) 2020 Assessment & Plan (01/19/2025 1:33 PM CDT): -home ASA -low stimulation bundle, reorient as needed Assessment & Plan (01/18/2025 6:22 PM CDT): -restart home ASA -low stimulation bundle, reorient as needed Assessment & Plan (01/17/2025 12:08 PM CDT): -holding home ASA while NPO Assessment & Plan (12/10/2024 8:50 AM CDT): [...] Essential (primary) hypertension 07/24/2015 Assessment & Plan (01/19/2025 1:33 PM CDT): -restarted home amlodipine, cont holding home Isordil (facility can restart as BP allows after discharge) Assessment & Plan (01/18/2025 6:22 PM CDT): -restart home amlodipine, cont holding home Isordil (restart as BP allows) -hydralazine 5mg q6h IV PRN while NPO for SBP > 170 Assessment & Plan (01/17/2025 12:08 PM CDT): -holding home amlodipine & Isordil while NPO > hydralazine 5mg q6h IV PRN while NPO for SBP > 170 Assessment & Plan (12/10/2024 8:50 AM CDT): [...] No evidence of infection Urine cultures from [facility] last month were negative growth as [...] Encounters Date Type Department Care Team Description 02/17/2025 8:29 AM CDT - 02/17/2025 1:42 PM CDT Emergency [facility] EMERGENCY DEPARTMENT [address] [place] [address] Artemio Soliman DO Complication of tracheostomy tube (HCC) (Primary Dx); Encounter for tracheostomy tube change (HCC) Discharge Disposition: Half-Way Facility 02/17/2025 Travel 01/18/2025 1:00 PM CDT - 01/18/2025 11:59 PM CDT Hospital Encounter [facility] DIAGNOSTIC RAD [address] [place] [address] Alden Hurtado MD Discharge Disposition: Home or Self Care 01/17/2025 8:31 AM CDT - 01/19/2025 3:22 PM CDT Hospital Encounter [facility] 6N ACUTE [facility] [place] [address] Shane Fajardo MD Wheeler, Joseph R, MD Nguyen, Christopher, DO Joag, Madhura, MD Internal Medicine Discharge Disposition: Half-Way Facility 01/17/2025 Travel 01/14/2025 2:00 PM CDT Office Visit [facility] - GI [address] [place] [phone] Jagdish Belcher MD Status post insertion of percutaneous endoscopic gastrostomy (PEG) tube (HCC) (Primary Dx) 01/14/2025 Travel 01/09/2025 9:45 AM CDT Office Visit [facility] - ENT [address] [place] [phone] Alden Hurtado MD Oropharyngeal dysphagia (Primary Dx); Tracheostomy dependence (HCC); Problems with swallowing and mastication from Last 3 Months Immunizations Immunization Administration Dates Next Due [facility], HISTORIC VACCINE 03/18/2021 COVID MODERNA 6M-11Y 25MCG/0.25ML 07/02/2020, Covid Pfizer primary monoval ent 12+ yr 0.3mL Purple cap 04/06/2021,07/02/2020,06/11/2020 INFLUENZA [id number], HISTORIC VACCINE 02/27,03/07/2020,03/14/2019,2014 INFLUENZA VACCINE 02/01/2022,,03/07/2020,2018,03/24/2018,06/15/2017,06/23/2016,1 06/23/2014,03/19/2015 [...] you have a drink containing alcohol? Never 01/17/2025 Q2: How many drinks containi ng alcohol do you have on a typical day when you are drinking? Patient does not drink Q3: How often do you have si x or more drinks on one occasion? Never 01/17/2025 Overall Financial Resource Strain (CARDIA) Answe r Date Recorded How hard is it for you to pa y for the very basics like food, housing, medical care, and heating? Not hard at all 01/17/2025 [facility] [place] [facility] - Occupational Stress Questionnaire Answer Date Recorded Do you feel stress - tense, restless, nervous, or anxious, or unable to sleep at night because your mind is troubled all the time - these days? Not at all 01/17/2025 Hunger Vital Sign Answer Date Recorded Within the past 12 months, y ou worried that your food would run out before you got the money to buy more. Never true 01/18/20 25 Within the past 12 months, t he food you bought just didn't last and you didn't have money to get more. Never true 01/17/2025 PRAPARE - Transportation Answer Date Re corded In the past 12 months, has l ack of transportation kept you from medical appointments or from getting medications? No 12/29 In the past 12 months, has l ack of transportation kept you from meetings, work, or from getting things needed for daily living? No 01/17/2025 Housing Stability Vital Sign Answer Vinay e [...] the mortgage or rent on time? No 01/17/2025 In the past 12 months, how m any times have you moved where you were living? 0 01/17/2025 At any time in the past 12 m [facility], were you homeless or living in a penitentiary (including now)? No 01/17/2025 Sex and Gender Information Value Date Recorded Sex Assigned at Not on file Legal Sex Male 5:07 PM [employer] Gender Identity Not on file Sexual Orientation Not on file Last Filed Vital Signs Vital Sign Reading Time Taken Comments Blood Pressure 153/97 02/17/2025 12:37 PM CDT Pulse 90 02/17/2025 12:53 PM CDT Temperature 36.7 C (98.1 F) 02/17/2025 12:37 PM CDT Respiratory Rate 14 02/17/2025 12:37 PM CDT Oxygen Saturation 94% 02/17/2025 12:53 PM CDT Inhaled Oxygen Concentration 21% 02/17/2025 9 :00 AM CDT Weight 72.6 kg (160 lb) 02/17/2025 8:34 AM CDT Height 180.3 cm (5' 11) 02/17/2025 8:34 AM CDT Body Mass Index 22.32 02/17/2025 8:34 AM CDT Plan of Treatment Upcoming Encounters Date Type Department Care Team (Late st Contact Info) Description 05/15/2025 11:00 AM [employer] Office Visit [facility] - Neurology [address] [facility] [address] [facility] [place] [phone] Yana Rm, 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 [address] [place] [phone] Health Maintenance Due Date Last Done Comments [...] - Risk 60-74 years 1-dose series) 2021 DEPRESSION SCREENING 05/30/2024 COVID-19 VACCINE (2024- season) 2025 04/06/2021, 07/02/2020, 07/02/2020, Additional history exists INFLUENZA VACCINE (#1) 2025 , 03/16/2021, 03/16/2021, Additional history exists DTAP/TDAP/TD VACCINES (3 - Td or Tdap) 06/06/2027 06/06/2017, 03/23/2017 HEPATITIS C SCREENING Completed 09/01/2022 , 01/30/2018, 10/13/2017 HIV SCREENING Completed 09/01/2022, 01/2019, 01/30/2018, Additional history exists HEPATITIS B [...] on patient's age to complete this topic Goals Goal Patient Goal Type Associated Problems Recent Progress Patient-Stated? Author Safety General On track( 3:01 PM CDT) Angelina Arrington, RN Note: Expected end date: ongoing Interventions: Your nurse will assess your risk for falls/injury each visit Use appropriate and safe transfer methods Make sure appropriate safety devices are available and within reach Review the fall prevention instruction sheet given to you during your visit Be aware of medications that could predispose you to falling Wear non-skid/rubber sole footwear Wear glasses/hearing aid Keep personal items within easy reach Use some light at night in your room Keep walking paths clutter free and clear Maintain an unobstructed path to the bathroom Medication Management General On track( 3:01 PM CDT) Angelina Arrington, RN Note: Expected end date: ongoing Interventions: Take all medications as prescribed Let your doctor know right away about any changes in your medications Make sure to request a refill of your medication at least one week prior to your last dose Procedures Procedure Name Priority Date/Time Associated Diagnosis Comments FL SWALLOWING FUNCTION STUDY Routine 01/18/2025 2:23 PM CDT Oropharyngeal dysphagia Tracheostomy dependence (HCC) Problems with swallowing and mastication IR PERC GJ TUBE REPLACEMENT STAT 01/18/2025 12:41 PM CDT Gastrostomy tube dysfunction (HCC) URINALYSIS REFLEX MICROSCOPIC REFLEX CULTURE STAT 01/17/2025 12:48 PM CDT CULTURE URINE STAT 01/17/2025 12:48 PM CDT PT-INR STAT 01/17/2025 12:29 PM CDT Gastrostomy tube dysfunction (HCC) TROPONIN-I HIGH SENSITIVE REFLEX 1HOUR Timed 01/17/2025 12:29 PM CDT CBC W AUTO DIFFERENTIAL STAT 01/17/2025 12:29 PM CDT COMPREHENSIVE METABOLIC PANEL STAT 01/17/2025 10:31 AM CDT TROPONIN-I HIGH SENSITIVE BASELINE + 1HR STAT 01/17/2025 10:31 AM CDT EKG 12-LEAD Routine 01/17/2025 10:23 AM CDT Gastrostomy tube dysfunction (HCC) XR CHEST 1VW PORTABLE STAT 01/17/2025 9:20 AM CDT Gastrostomy tube dysfunction (HCC) HEPATITIS C AB SCREEN RFLX NAAT QUANT Routine 09/01/2022 2:05 AM CDT HIV-1 HIV-2 ANTIBODY + HIV P24 AG PANEL Routine 09/01/2022 2:05 AM CDT from Last 3 Months or Most Recently Relevant to Health Maintenance Results * FL Swallowing Function Study (01/18/2025 2:23 PM CDT) Anatomical Region Laterality Modality Chest Digital Radiogra phy 01/18/2025 3:11 PM CDT Impressions 01/18/2025 3:14 PM CDT IMPRESSION: Fluoroscopic assistance was provided for a modified barium swallow test performed by Speech Therapy. Please see the Speech Therapy report for details. Report dictated by Mandi Lorenzo MD (radiology administrator) > Dictated by Abrasive Mixer Helper I, Daniel Taylor MD have personally reviewed and interpreted this examination/study. > Interpreting Provider: Daniel Taylor MD on 01/18/2025 3:14 PM Narrative 01/18/2025 3:14 PM CDT PROCEDURE: FL SWALLOWING FUNCTION STUDY DATE/TIME OF EXAM: 01/18/2025 2:25 PM CLINICAL INFORMATION: None relevant/not provided if blank. Indication: R13.12: Oropharyngeal dysphagia Z93.0: Tracheostomy dependence (HCC) R13.10: Problems with swallowing and mastication Additional History: COMPARISON: None. TECHNIQUE: Modified barium swallow fluoroscopy performed in conjunction with speech pathology staff. The speech pathologist administered varying thickness barium liquids and solids under direct cine fluoroscopy. FLUOROSCOPY DOSE: 8.82 mGy Reference air kerma (ka,r). Procedure Note Daniel Taylor MD - 01/18/2025 PROCEDURE: FL SWALLOWING FUNCTION STUDY DATE/TIME OF EXAM: 01/18/2025 2:25 PM CLINICAL INFORMATION: None relevant/not provided if blank. Indication: R13.12: Oropharyngeal dysphagia Z93.0: Tracheostomy dependence (HCC) R13.10: Problems with swallowing and mastication Additional History: COMPARISON: None. TECHNIQUE: Modified barium swallow fluoroscopy performed in conjunction with speech pathology staff. The speech pathologist administered varying thickness barium liquids and solids under direct cine fluoroscopy. FLUOROSCOPY DOSE: 8.82 mGy Reference air kerma (ka,r). IMPRESSION: Fluoroscopic assistance was provided for a modified barium swallow test performed by Speech Therapy. Please see the Speech Therapy report for details. Report dictated by Mandi Lorenzo MD (radiology administrator) > Dictated by Abrasive Mixer Helper Daniel Thomason MD have personally reviewed and interpreted this examination/study. > Interpreting Provider: Daniel Taylor MD on 01/18/2025 3:14 PM us Alden Hurtado MD FLUOROSCOPY ORDERABLES Final Res ult * IR Perc GJ Tube Replacement (01/18/2025 12:41 PM CDT) Anatomical Region Laterality Modality Abdomen X-Ray Angiograph y 01/29/2025 1:22 PM CDT Impressions 01/29/2025 1:25 PM CDT Impression: Successful gastrojejunostomy catheter replacement, as detailed above. Note: The catheter can be used [...] and call the IR service. I, Dr. Gonzalez, was present and performed/supervised the entire procedure. > Interpreting Provider: Basilio Gonzalez MD on 01/29/2025 1:25 PM Narrative 01/29/2025 1:25 PM CDT PROCEDURE: IR PERC GJ TUBE REPLACEMENT DATE/TIME OF EXAM: 01/18/2025 12:52 PM CLINICAL INFORMATION: None relevant/not provided if blank. Indication: K94.23: Gastrostomy tube dysfunction (HCC) History: GJ fell out. Here for replacement Operators: 1.Dr. Basilio Gonzalez, Attending Physician Anesthesia: 1.Local anesthesia - 10 mL of 1% lidocaine 2.Intravenous Fentanyl 25 mcg Procedure: Placement of a new 16-Dutch balloon-retention gastrojejunostomy catheter through the existing gastrocutaneous tract under fluoroscopic guidance. Contrast: 20 mL of Isovue-300 Fluoroscopy time: 2.4 min Procedure in detail: The procedure, risks, and possible complications were explained to the patient in detail, and informed consent was obtained. The patient was placed supine on the procedure table. The patient was prepped and draped in sterile fashion. A quill buncher and sorter radiograph of the abdomen was obtained, which was unremarkable. The existing gastrocutaneous tract was recannulated with a 0.035 inch Glidewire and 4 Dutch Kumpe catheter under fluoroscopic guidance. Hand injection of contrast through the Kumpe catheter showed opacification of gastric rugae. An 0.035 inch glidewire was advanced into the jejunum through the existing catheter which was subsequently removed over the wire. A new 16F gastrojejunostomy catheter was then advanced over the guidewire under fluoroscopic guidance. Hand injection of contrast through the new catheter confirmed the position of catheter tip in the proximal jejunum. Sterile dressing was applied. The patient tolerated the procedure well and was transferred to the holding area in stable condition. There were no immediate complications associated with the procedure. Procedure Note Basilio Gonzalez MD - 01/29/2025 PROCEDURE: IR PERC GJ TUBE REPLACEMENT DATE/TIME OF EXAM: 01/18/2025 12:52 PM CLINICAL INFORMATION: None relevant/not provided if blank. Indication: K94.23: Gastrostomy tube dysfunction (HCC) History: GJ fell out. Here for replacement Operators: 1.Dr. Basliio Gonzalez, Attending Physician Anesthesia: 1.Local anesthesia - 10 mL of 1% lidocaine 2.Intravenous Fentanyl 25 mcg Procedure: Placement of a new 16-Dutch balloon-retentiongastrojejunostomy catheter through the existing gastrocutaneous tract under fluoroscopic guidance. Contrast: 20 mL of Isovue-300 Fluoroscopy time: 2.4 min Procedure in detail: The procedure, risks, and possible complications were explained to the patient in detail, and informed consent was obtained. The patient was placed supine on the procedure table. The patient was prepped and drapedin sterile fashion. A quill buncher and sorter radiograph of the abdomen was obtained, whichwas unremarkable. The existing gastrocutaneous tract was recannulated with a 0.035 inch Glidewire and 4 Dutch Kumpe catheter under fluoroscopic guidance. Hand injection of contrast through the Kumpe catheter showed opacification of gastric rugae. An 0.035 inch glidewire was advanced into the jejunum through the existing catheter which was subsequently removed over thewire. A new 16F gastrojejunostomy catheter was then advanced over theguidewire under fluoroscopic guidance. Hand injection of contrast through the new catheter confirmed the position of catheter tip in the proximal jejunum. Sterile dressing was applied. The patient tolerated the procedure well and [facility]. There were no immediate complicationsassociated with the procedure. Impression: Successful gastrojejunostomy catheter replacement, asdetailed above. Note: The catheter can be used now. Flush the catheter with 30 mL ofwater before and after each use. Recommend liquid formulation of medications. Avoid crushed pills to maintain patency. Please contact the pharmacy for better formulation if any pills need to be administered through the catheter. In case of abdominal distension or discomfort, stop feedingand call the IR service. I, Dr. Gonzalez, was present and performed/supervised the entire procedure. > Interpreting Provider: Basilio Gonzalez MD on 01/29/2025 1:25 PM Gaurav Leroy PA-C IR ORDERABLES Final Re sult * (ABNORMAL) URINALYSIS REFLEX MICROSCOPIC REFLEX CULTURE (01/17/2025 12:48 PM CDT) Color UA Yellow Yellow, Straw 01/17/2025 1:25 PM CDT [facility] Clarity UA Turbid(A) Clear 01/17/2025 1:25 PM CDT [facility] Glucose UA Normal Normal 01/17/2025 1:25 PM [facility] Bilirubin UA Negative Negative 01/17/2025 1:25 PM [facility] Ketone UA Negative Negative 01/17/2025 1:25 PM [facility] Specific [place] UA 1.028 1.005 - 1.030 01/17/2025 1:25 PM [facility] Blood UA 2+(A) Negative 01/17/2025 1:25 PM [facility] pH UA 7.0 5.0 - 8.0 01/17/2025 1:25 PM [facility] Protein UA 1+(A) Negative 01/17/2025 1:25 PM [facility] Urobilinogen UA 3.0(A) Normal mg/dL 01/17/2025 1:25 PM [facility] Nitrite UA Negative Negative 01/17/2025 1:25 PM [facility] Leukocyte Esterase UA 250 NOEL/uL(A) Negative 01/17/2025 1:25 PM [facility] RBC UA >100(A) 0 - 5 # /hpf 01/17/2025 1:25 PM [facility] WBC UA 21-50(A) 0 - 5 # /hpf 01/17/2025 1:25 PM [facility] Bacteria UA None Seen None Seen 01/17/2025 1:25 PM [facility] Squamous Epithelial Cells None Seen 0 - 5 /hpf 01/17/2025 1:25 PM [facility] Mucus UA 4+ /LPF 01/17/2025 1:25 PM [facility] Calcium Oxalate Crystals Occasional( A) None seen /HPF 01/17/2025 1:25 PM [facility] Reflex Status Culture to follow 01/17/2025 1:25 PM [facility] Urine URINE SPECIMEN OBTAINED VIA [facility] URINARY CATHETER / Unknown 01/17/2025 12:48 PM CDT 01/17/2025 12:48 PM [facility] [place] 2[place] us Shane Fajardo MD LAB - URINALYSIS ORDERABLE S Final Result [facility] [address] [place] [address], [facility] [phone] * CULTURE URINE (01/17/2025 12:48 PM CDT) Pathologist [facility] Culture Urine No growth (<100 CFU/mL) JELLY 01/19/2025 12:16 AM CDT [facility] Urine URINE SPECIMEN OBTAINED VIA [facility] URINARY CATHETER / Unknown 01/17/2025 12:48 PM CDT 01/17/2025 12:48 PM CDT Shane Fajardo MD LAB - MICROBIOLOGY ORDERAB LES Final Result [facility] [address] [place] [address], [facility] [phone] * TROPONIN-I HIGH SENSITIVE REFLEX 1HOUR (01/17/2025 12:29 PM CDT) [facility] Troponin I High Sensitive 7 <=35 ng/L 01/17/2025 1:18 PM CDT [facility] Delta Troponin I HS 01/17/2025 1:18 PM CDT [facility] Comment:Delta value intentio maria del rosario not calculated. Baseline to 1 hour specimen collection interval exceeded. Blood BLOOD SPECIMEN / Unknown Venipuncture / Unknown 01/17/2025 12:29 PM CDT 01/17/2025 12:38 PM CDT Shane Fajardo MD LAB - CHEMISTRY ORDERABLES Final Result [facility] [address] [place] [address], [facility] [phone] * PT-INR (01/17/2025 12:29 PM CDT) Pathologist [facility] PT 12.6 12.1 - 14.8 Seconds 01/17/2025 1:03 PM CDT [facility] INR 1.0 See Comment 01/17/2025 1:03 PM CDT [facility] Comment:The suggested therap eutic range for standard coumadin (warfarin) therapy is an INR of 2.0-3.0. For high-risk patients (Mechanical Mitral Valve Prosthesis, etc.), the suggested prophylactic therapeutic range is an INR of 2.5-3.5. Blood BLOOD SPECIMEN / Unknown Venipuncture / Unknown 01/17/2025 12:29 PM CDT 01/17/2025 12:30 PM CDT Gaurav Leroy PA-C LAB - COAGULATION ORDERA BLES Final Result [facility] [address] [place] [address], [facility] [phone] * (ABNORMAL) CBC W AUTO DIFFERENTIAL (01/17/2025 12:29 PM CDT) WBC 10.1 4.0 - 10.7 x10E9/L 01/17/2025 12:44 PM [facility] RBC Count 3.95(L) 4.30 - 5.80 x10E12/L 01/17/2025 12:44 PM [facility] Hemoglobin 12.5(L) 13.3 - 17.5 g/dL 01/17/2025 12:44 PM [facility] Hematocrit 37.5(L) 38.7 - 51.1 % 01/17/2025 12:44 PM [facility] MCV 94.9 80.0 - 98.0 fL 01/17/2025 12:44 PM [facility] MCH 31.6 26.7 - 33.6 pg 01/17/2025 12:44 PM [facility] MCHC 33.3 31.7 - 36.3 g/dL 01/17/2025 12:44 PM [facility] RDW-CV 12.8 11.3 - 14.8 % 01/17/2025 12:44 PM [facility] Platelet Count 285 150 - 420 x10E9/L 01/17/2025 12:44 PM [facility] MPV 11.5(H) 7.8 - 11.4 fL 01/17/2025 12:44 PM [facility] Neutrophil % 62.7 41.0 - 74.0 % 01/17/2025 12:44 PM CDT [facility] Lymphocyte % 23.7 17.0 - 47.0 % 01/17/2025 12:44 PM T [facility] Monocyte % 7.2 3.0 - 11.0 % 01/17/2025 12:44 PM T [facility] Eosinophil % 5.8 0.0 - 7.0 % 01/17/2025 12:44 PM T [facility] Basophil % 0.3 0.0 - 1.6 % 01/17/2025 12:44 PM T [facility] Immature Granulocytes % 0.3 0.0 - 1.0 % 01/17/2025 12:44 PM T [facility] Neutrophil Absolute 6.36 1.60 - 7.50 x10E9/L 01/17/2025 12:44 PM T [facility] Lymphocyte Absolute 2.40 1.00 - 4.40 x10E9/L 01/17/2025 12:44 PM T [facility] Monocyte Absolute 0.73 0.15 - 1.00 x10E9/L 01/17/2025 12:44 PM T [facility] Eosinophil Absolute 0.59 0.00 - 0.60 x10E9/L 01/17/2025 12:44 PM T [facility] Basophil Absolute 0.03 0.00 - 0.13 x10E9/L 01/17/2025 12:44 PM [facility] Blood BLOOD SPECIMEN / Unknown Venipuncture / Unknown 01/17/2025 12:29 PM CDT 01/17/2025 12:38 PM CDT us Shane Fajardo MD LAB - HEMATOLOGY ORDERABLE S Final Result [facility] [address] [place] [address], [facility] [phone] * TROPONIN-I HIGH SENSITIVE BASELINE + 1HR (01/17/2025 10:31 AM CDT) Pathologist [facility] Troponin I High Sensitive 7 <=35 ng/L 01/17/2025 11:18 AM [facility] Blood BLOOD SPECIMEN / Unknown Venipuncture / Unknown 01/17/2025 10:31 AM CDT 01/17/2025 10:31 AM T us Shane Fajardo MD LAB - CHEMISTRY ORDERABLES Final Result [facility] [address] [place] [address], [facility] [phone] * (ABNORMAL) COMPREHENSIVE METABOLIC PANEL (01/17/2025 10:31 AM CDT) BUN 14 7 - 26 mg/dL 01/17/2025 11:18 AM [facility] Creatinine 0.67(L) 0.71 - 1.16 mg/dL 01/17/2025 11:18 AM [facility] Sodium 137 136 - 145 mmol/L 01/17/2025 11:18 AM [facility] Potassium 4.1 3.5 - 4.5 mmol/L 01/17/2025 11:18 AM [facility] Chloride 106 98 - 107 mmol/L 01/17/2025 11:18 AM [facility] CO2 26 22 - 29 mmol/L 01/17/2025 11:18 AM [facility] Glucose 108(H) 70 - 99 mg/dL 01/17/2025 11:18 AM [facility] Calcium 9.6 8.4 - 10.2 mg/dL 01/17/2025 11:18 AM [facility] Protein Total 7.9 6.0 - 8.3 g/dL 01/17/2025 11:18 AM [facility] Albumin 4.2 3.4 - 5.0 g/dL 01/17/2025 11:18 AM [facility] Bilirubin Total 0.3 0.2 - 1.2 mg/dL 01/17/2025 11:18 AM [facility] Alkaline Phosphatase 120 40 - 150 U/L 01/17/2025 11:18 AM [facility] ALT 20 5 - 55 U/L 01/17/2025 11:18 AM [facility] AST 25 5 - 34 U/L 01/17/2025 11:18 AM [facility] Anion Gap 5(L) 6 - 16 01/17/2025 11:18 AM [facility] BUN/Creatinine Ratio 21 7 - 23 01/17/2025 11:18 AM [facility] Osmolality Calculated 285 275 - 295 mOsm/kg 01/17/2025 11:18 AM [facility] Albumin/Globulin Ratio 1.1 1.1 - 2.3 01/17/2025 11:18 AM [facility] eGFR by CKD-EPI >90 >=90 mL/min/1.7 3 m2 01/17/2025 11:18 AM [facility] Comment:Estimated Glomerular Filtration Rate (eGFR) calculated using the CKD-EPI Creatinine Equation (2020), per the National Kidney Foundation and [place] [employer]ph[employer] recommendations. Blood BLOOD SPECIMEN / Unknown Venipuncture / Unknown 01/17/2025 10:31 AM CDT 01/17/2025 10:31 AM CDT us Shane Fajardo MD LAB - CHEMISTRY ORDERABLES Final Result [facility] [address] [place] [address], [facility] [phone] * EKG 12-Lead (01/17/2025 10:23 AM CDT) Ventricular Rate 94 BPM [facility] Atrial Rate 94 BPM [facility] P-R Interval 164 ms [facility] QRS Duration ms 76 ms [facility] Q-T Interval ms 350 ms [facility] QTC Calculation (Bezet) 437 ms [facility] Calculated P David 54 degrees [facility] Calculated R David -11 degrees [facility] Calculated T David 86 degrees [facility] Interpretation EKG NORMAL SINUS RHYTHM NONSPECIFIC T WAVE ABNORMALITY ABNORMAL ECG WHEN COMPARED WITH ECG OF 07-DEC-2024 08:47, CRITERIA FOR INFERIOR INFARCT ARE NO LONGER PRESENT Confirmed by MD ABENA, CLEMENTE ([id number]) on 01/17/2025 11:02:35 AM [facility] 01/17/2025 10:2 3 AM CDT 01/17/2025 11:02 AM CDT us Shane Fajadro MD ECG ORDERABLES Edited Res ult - Final [facility] * XR Chest 1Vw Portable (01/17/2025 9:20 AM CDT) Anatomical Region Laterality Modality Chest Digital Radiogra phy 01/17/2025 9:57 AM CDT Impressions 01/17/2025 10:44 AM CDT IMPRESSION: No acute cardiopulmonary abnormality. Report dictated by Celina Bell M.D., [radiology administrator'. > Dictated by Abrasive Mixer Helper I, Ernie Tapia have personally reviewed and interpreted this examination/study. > Interpreting Provider: Ernie Tapia on 01/17/2025 10:44 AM Narrative 01/17/2025 10:44 AM CDT PROCEDURE: XR CHEST 1VW PORTABLE, DATE/TIME OF EXAM: 01/17/2025 9:50 AM, LOCATION [facility] INDICATION: K94.23: Gastrostomy tube dysfunction (HCC) ADDITIONAL CLINICAL INFORMATION: Ordering Provider Reason For Exam: any pneumonia COMPARISON: Chest radiograph 12/01/2024. TECHNIQUE: AP view, semierect FINDINGS: Tracheostomy tube in appropriate position. Mild bibasilar atelectatic changes, unchanged. There is no focal consolidation, pleural effusion, or pneumothorax. The cardiomediastinal silhouette is normal. Procedure Note Ernie Diaz MD - 01/17/2025 PROCEDURE: XR CHEST 1VW PORTABLE, DATE/TIME OF EXAM: 01/17/2025 9:50AM, LOCATION [facility] INDICATION: K94.23: Gastrostomy tube dysfunction (HCC) ADDITIONAL CLINICAL INFORMATION: Ordering Provider Reason For Exam: any pneumonia COMPARISON: Chest radiograph 12/01/2024. TECHNIQUE: AP view, semierect FINDINGS: Tracheostomy tube in appropriate position. Mild bibasilar atelectatic changes, unchanged. There is no focal consolidation, pleural effusion, or pneumothorax. The cardiomediastinal silhouette is normal. IMPRESSION: No acute cardiopulmonary abnormality. Report dictated by Celina Bell M.D., [radiology administrator'. > Dictated by Abrasive Mixer Helper I, Ernie Tapia have personally reviewed and interpreted this examination/study. > Interpreting Provider: Ernie Tapia on 01/17/2025 10:44 AM Shane Fajardo MD DIAGNOSTIC IMAGING ORDERAB LES Final Result * HEPATITIS C AB SCREEN RFLX NAAT [...] LAB - CHEMISTRY ORDERABLES Fin al Result [facility] [address] [place] [address], [facility] [phone] * HIV-1 HIV-2 ANTIBODY + HIV P24 AG PANEL (09/01/2022 2:05 AM CDT) HIV Antigen/Antibod y 1 & 2 Non-reacti ve Non-react phan 09/01/2022 3:09 AM CDT [facility] Comment:No Laboratory eviden ce of HIV infection. 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 Source: [facility]. 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 John Seipel Infection Prevention 09/18/2022 MDRO Hx 09/18/2022 11/27/2024 MRSA Hx 06/11/2023 11/27/2024 Insurance [facility] [place] [address] Advance Directives Documents on File Type Date Recorded Patient Groover Runner Expl anation Adv Directive/Living Will/POA 01/28/2025 8:27 AM Adv Directive/Living Will/POA 07/19/2019 4:10 PM * Full Code (Latest Code Status on File) Date Activated Date Inactivated Comments 01/17/2025 1:14 PM 01/19/2025 4:22 PM * Full Code Date Activated Date Inactivated Comments 11/26/2024 7:45 PM 12/11/2024 6:58 PM * Full Code Date Activated Date Inactivated Comments 11/26/2024 5:31 PM 11/26/2024 7:45 PM * Full Code Date Activated Date Inactivated Comments 08/03/2024 3:18 AM 08/08/2024 9:58 PM * Full Code Date Activated Date Inactivated Comments 07/17/2024 3:34 AM 07/19/2024 6:56 PM Care Teams Home Health Care Social Worker Relationship Specialty Start Date End Date Jack Arroyo MD [address] [place] [address] PCP - General 10/17/24 Elizabeth Sullivan, RN Quality Control Representative 10/14/17
--- OUTSIDE RECORDS SUMMARY | 2025-04-11 08:01 | XMS_ITS | Encounter Summary ---
Author Organization [facility] Address [address] [place] [address] Care Team Providers Care Supervisor Intermediates Name Role Phone Frank Toure MD Unavailable Joyce Luevano NP Primary Care Provider Unavaila Marielena Adame MD Primary Care Provider Encounter Details Date Type Department Care Team (Late st Contact Info) Description 03/13/2022 Applitoolst Message Enc [facility] Medical Group Family Medicine - [address] [address] Joyce Luevano, PSYCHOMETRIST Bi Tabor Update Social History Tobacco Use [...] filedocumented in this encounter Care Teams Supervisor Intermediates Relationship Specialty Start Date End Date Joyce Luevano NP [address] [place] [address] PCP - General NURSE PRACTITIONER 01/14/20 10/26/23 Marielena Smallwood MD [address] [place] [address] PCP - General FAMILY PRACTICE 10/27/23 Frank Toure MD [address] [place] [address] [facility] CARDIOVASCULAR DISEASE 05/30/16 documented as of this encounter
--- OUTSIDE RECORDS SUMMARY | 2025-04-11 08:01 | XMS_ITS | Encounter Summary ---
Author Organization [facility] - [facility] Address [address] [place] [address] Care Team Providers Care Teradata Solution Architect Name Role Phone Frank Toure MD Unavailable Joyce Luevano NP Primary Care Provider Unavaila Marielena Adame MD Primary Care Provider [phone] Encounter Details Date Type Department Care Team (Late st Contact Info) Description 02/23/2022 MyChart Message Enc [facility] Family Medicine - [address] [address] Joyce Luevano, BOUCHRA Bi updated [...] 10:33 AM CDT These updated through the [employer] system. documented in this encounter Plan of Treatment Not on file documented as of this encounter Visit Diagnoses Not on filedocumented in this encounter Care Teams Teradata Solution Architect Relationship Specialty Start Date End Date Joyce Luevano NP [address] [place] [address] PCP - General NURSE PRACTITIONER 01/14/20 10/26/23 Marielena Smallwood MD [address] [place] [id number] PCP - General FAMILY PRACTICE 10/27/23 Frank Toure MD [address] [place] [address] [facility] Barge Master CARDIOVASCULAR DISEASE 05/30/16 documented as of this encounter
--- OUTSIDE RECORDS SUMMARY | 2025-04-11 08:01 | XMS_ITS | Encounter Summary ---
Author Organization [facility] - [facility] Address [address] [place] [address] Care Team Providers Care Access Clerk Name Role Phone Frank Toure MD Unavailable Joyce Luevano NP Primary Care Provider Unavaila Marielena Adame MD Primary Care Provider [phone] Encounter Details Date Type Department Care Team (Late st Contact Info) Description 07/06/2022 MyCNegevtecht Message Enc [facility] Medical Group Family Medicine - [address] [address] Joyce Luevano, CRITICAL POWER TECHNICIAN Bi Tabor Social History Tobacco Use Types [...] Coronavirus/COVID-19? No / Unsure 06/17/2022 10:38 AM RECORD PRESS SUPERVISOR documented as of this encounter Functional Status [...] 1:34 PM CST Please see note. Thanks RD PRESS SUPERVISOR * Yonatan Rodriguez RN - 07/07/2022 8:09 AM CST Please see note. Thanks RD PRESS SUPERVISOR documented in this encounter Plan of Treatment Not on file documented as of this encounter Visit Diagnoses Not on filedocumented in this encounter Care Teams Access Clerk Relationship Specialty Start Date End Date Joyce Luevano NP [address] [place] [address] PCP - General NURSE PRACTITIONER 01/14/20 10/26/23 Marielena Smallwood MD [address] [place] [address] PCP - General FAMILY PRACTICE 10/27/23 [place] [address] [place] [address] [facility] We[employer] Management Consultant CARDIOVASCULAR DISEASE 05/30/16 documented as of this encounter
--- OUTSIDE RECORDS SUMMARY | 2025-04-11 08:01 | XMS_ITS | Encounter Summary ---
Author Organization [facility] - [facility] Address [address] [place] [address] Care Team Providers Care Distance Education Teacher Name Role Phone Frank Toure MD Unavailable Joyce Luevano NP Primary Care Provider Unavaila Marielena Adame MD Primary Care Provider [phone] Encounter Details Date Type Department Care Team (Late st Contact Info) Description 03/15/2022 HealthMediat Message Enc [facility] Medical Group Family Medicine - [address] [address] Joyce Luevano, MATERIAL ANALYST Bi Tabor Social History Tobacco Use Types [...] on filedocumented in this encounter Care Teams Distance Education Teacher Relationship Specialty Start Date End Date Joyce Luevano NP [address] [place] [address] PCP - General NURSE PRACTITIONER 01/14/20 10/26/23 Marielena Smallwood MD [address] [place] [address] PCP - General FAMILY PRACTICE 10/27/23 Frank Toure MD [address] [place] [address] [facility] Combine Driver CARDIOVASCULAR DISEASE 05/30/16 documented as of this encounter
--- OUTSIDE RECORDS SUMMARY | 2025-04-11 08:01 | XMS_ITS | Encounter Summary ---
Author Organization [facility] - [facility] Address [address] [place] [address] Care Team Providers Care Laser Cutter Name Role Phone Frank Toure MD Unavailable Joyce Luevano NP Primary Care Provider Unavaila Marielena Adame MD Primary Care Provider [phone] Encounter Details Date Type Department Care Team (Late st Contact Info) Description 03/08/2022 Bring Lightt Message Enc [facility] Medical [facility] Family Medicine - [address] [address] Joyce Luevano, BOUCHRA Vascular [...] on filedocumented in this encounter Care Teams Laser Cutter Relationship Specialty Start Date End Date Joyce Luevano NP [address] [place] [address] PCP - General NURSE PRACTITIONER 01/14/20 10/26/23 Marielena Smallwood MD [address] [place] [id number] PCP - General FAMILY PRACTICE 10/27/23 Frank Toure MD [address] [place] [address] [employer] Decision Support Analyst CARDIOVASCULAR DISEASE 05/30/16 documented as of this encounter
--- OUTSIDE RECORDS SUMMARY | 2025-04-11 08:01 | XMS_ITS | Encounter Summary ---
Author Organization [facility] - [facility] Address [address] [place] [address] Care Team Providers Care Feed Handler Name Role Phone Frank Toure MD Unavailable Joyce Luevano NP Primary Care Provider Unavaila Marielena Adame MD Primary Care Provider [phone] Encounter Details Date Type Department Care Team (Late st Contact Info) Description 05/11/2022 Computet Message Enc [facility] Family Medicine - [address] [address] Joyce Luevano, BOUCHRA Pat appointment [...] on filedocumented in this encounter Care Teams Feed Handler Relationship Specialty Start Date End Date Joyce Luevano NP [address] [place] [address] PCP - General NURSE PRACTITIONER 01/14/20 10/26/23 aMrielena Smallwood MD [address] [place] [address] PCP - General FAMILY PRACTICE 10/27/23 Frank Toure MD [address] [place] [address] [place] Skull Chopper CARDIOVASCULAR DISEASE 05/30/16 documented as of this encounter
--- OUTSIDE RECORDS SUMMARY | 2025-04-11 08:01 | XMS_ITS | Encounter Summary ---
Author Organization [facility] - [facility] Address [address] [place] [address] Care Team Providers Care Special Forces Medical Sergeant Name Role Phone Frank Toure MD Unavailable Joyce Luevano NP Primary Care Provider Unavaila Marielena Adame MD Primary Care Provider [phone] Encounter Details Date Type Department Care Team (Late st Contact Info) Description 03/09/2022 VOYAAt Message Enc [facility] Medical Group Family Medicine - [address] [address] Joyce Luevano, STONEWORKER Update on Bi Tabor Social History Tobacco [...] filedocumented in this encounter Care Teams Special Forces Medical Sergeant Relationship Specialty Start Date End Date Joyce Luevano NP [address] [place] [address] PCP - General NURSE PRACTITIONER 01/14/20 10/26/23 Marielena Smallwood MD [address] [place] [id number] PCP - General FAMILY PRACTICE 10/27/23 Frank Toure MD [address] [place] [address] [facility] Business Office Associate CARDIOVASCULAR DISEASE 05/30/16 documented as of this encounter
--- OUTSIDE RECORDS SUMMARY | 2025-04-11 08:01 | XMS_ITS | Encounter Summary ---
Author Organization [facility] Address [address] [place] [address] Care Team Providers Care Car Designer Name Role Phone Frank Toure MD Unavailable Joyce Luevano NP Primary Care Provider Unavaila Marielena Adame MD Primary Care Provider [phone] Encounter Details Date Type Department Care Team (Late st Contact Info) Description 06/16/2022 MyCF[employer]mot Message Enc [facility] Family Medicine - [address] [address] Joyce Luevano, AUTOMATIC VULCANIZING LEAD OPERATOR Bi [employer]abor Social History Tobacco Use [...] Coronavirus/COVID-19? No / Unsure 06/17/2022 10:38 AM LENS COATING TECHNICIAN documented as of this encounter Functional [...] in writing. She states to fax to [phone]. Will send letter to them. COATING TECHNICIAN * Yonatan Rodriguez RN - 06/16/2022 12:50 PM CST Please see note. Thanks COATING TECHNICIAN documented in this encounter Plan of Treatment Not on file documented as of this encounter Visit Diagnoses Not on filedocumented in this encounter Care Teams Car Designer Relationship Specialty Start Date End Date Joyce Luevano NP [address] [place] [id number] PCP - General NURSE PRACTITIONER 01/14/20 10/26/23 Marielena Smallwood MD [address] [place] [address] PCP - General FAMILY PRACTICE 10/27/23 Frank Toure MD [address] [place] [address] Chivo Art Model CARDIOVASCULAR DISEASE 05/30/16 documented as of this encounter
--- OUTSIDE RECORDS SUMMARY | 2025-04-11 08:01 | XMS_ITS | Clinical Summary ---
Author Organization [facility] Address [address] [place] [address] Care Team Providers Care Solar Sales Energy Advisor Name Role Phone Frank Toure MD Unavailable Marielena Smallwood MD Primary Care Provider [phone] Allergies Active Allergy Reactions Criticality Noted Date Comments Clonazepam Hallucinations Medium 12/09/2021 hallucinations Medications vitamin B-1 100 MG TabIndications:Seiz ure ([facility]) Take 1 tablet (100 mg total) [...] x 7.5 MG/0.1ML Liquid Therapy PackIndications:Tara llanes ([facility]) 2 sprays by Nasal route as [...] infection. Antibiotics not indicated Osteoporosis 11/22/2018 Seizure 08/25/2017 Cerebrovascular accident (CV A) due to thrombosis of right posterior cerebral artery 02/20/2016 Assessment & Plan (11/29/2018 9:36 PM CDT): Patient has residual cognitive difficulties I think beyond with patient and her family have recognized in the past however as noted in adequate medication intake her side effects may be causing deterioration. Hypertension 07/24/2015 Hyperlipidemia 04/14/2015 Assessment & Plan (11/29/2018 9:36 PM CDT): Continue home meds and monitor Seizure 04/11/2015 Assessment & Plan (11/29/2018 9:39 PM CDT): History of generalized seizure disorder and being managed by a neurologist in [facility] however there is confusion from family [...] Comments Blood Pressure 128/72 06/17/2022 10:46 AM ACCOUNTING LECTURER Pulse 95 06/17/2022 10:46 AM ACCOUNTING LECTURER Temperature 36.4 C (97.6 F) 06/07/2022 12:31 PM ACCOUNTING LECTURER Respiratory Rate 18 06/17/2022 10:4 6 AM ACCOUNTING LECTURER Oxygen Saturation 98% 06/17/2022 10: 46 AM ACCOUNTING LECTURER Inhaled Oxygen Concentration - - Weight 59 kg (130 lb) 06/17/2022 10:46 AM ACCOUNTING LECTURER stated - unable to weigh Height 180.3 cm (5' 11) 06/17/2022 10: 46 AM ACCOUNTING LECTURER Body Mass Index 18.13 06/17/2022 10:46 AM ACCOUNTING LECTURER Plan of Treatment Health Maintenance Due Date Last Done Comments Annual Physical 01/27/1963 Zoster Vaccines (1 of 2) 2011 Pneumococcal Vaccine: 50+ Years (2 of 2 - PCV) 02/03/2017 02/04/2016, 08/13/2015, 02/07/2015 PHQ-2 (Physician [place]) 05/30/2024 COVID-19 Vaccine ( - season) 2025 04/06/2021, 07/02/2020, 06/11/2020 Influenza Adult (#1) 2025 02/01/2022, 03/16/2021, 03/07/2020, Additional history exists Colorectal Cancer Screening Colonoscopy (10 Years) 11/22/2026 11/22/2016 DTaP, Tdap and Td Vaccines (3 - Td or Tdap) 06/06/2027 06/06/2017, 03/23/2017 RSV Immunization or 60+ Years (1 - 1-dose 75+ series) 01/27/2036 Hepatitis C Completed 06/23/2016, 06/23/2016 Hepatitis A Vaccines Aged Out No long er eligible based on patient's age to complete this topic Meningococcal B Vaccine Aged Out No l [...] HEPATITIS C ANTIBODY Routine 06/23/2016 11:13 AM ACCOUNTING LECTURER from Last 3 Months or Most Recently [...] * HEPATITIS C ANTIBODY (06/23/2016 11:13 AM ACCOUNTING LECTURER) Pathologist [facility] HEPATITIS C AB NON-REACTIVE TEST[place] [address] NR [facility] TO EPIC CONVERSION 06/23/2016 11:1 3 AM ACCOUNTING LECTURER 06/23/2016 11:13 AM ACCOUNTING LECTURER Narrative [facility] TO EPIC CONVERSION - 06/24/2016 6:41 PM ACCOUNTING LECTURER Result Communication: No patient communication needed at this time us Misael Maradiaga DO LABORATORY Final Result [facility] TO EPIC CONVERSION from Last 3 Months or Most Recently Relevant to Health Maintenance Insurance MEDICAID Advance Directives Documents on File Type Date Recorded Patient Transporter Driver Expl anation Advance Directives and Living Will 10/17/2017 SADVANCE DIRECTIVES * Full Code (Latest Code Status on File) Date Activated Date Inactivated Comments 12/04/2018 1:44 PM 12/12/2018 3:19 PM * Full Code Date Activated Date Inactivated Comments 11/29/2018 6:21 PM 12/04/2018 1:38 PM Care Teams Solar Sales Energy Advisor Relationship Specialty Start Date End Date Marielena Smallwood MD [address] [place] [id number] PCP - General FAMILY PRACTICE 10/27/23 Frank Toure MD [address] [place] [id number] Claridge Race Steward CARDIOVASCULAR DISEASE 05/30/16
--- OUTSIDE RECORDS SUMMARY | 2025-04-11 08:01 | XMS_ITS | Encounter Summary ---
Author Organization [facility] Address [address] [place] [address] Care Team Providers Care Broadcast Journalist Name Role Phone Frank Toure MD Unavailable Joyce Luevano NP Primary Care Provider Unavaila Marielena Adame MD Primary Care Provider [phone] Encounter Details Date Type Department Care Team (Late st Contact Info) Description 02/23/2022 [employer] Message Enc [facility] Family Medicine - [address] [address] Joyce Luevano, LACEMAKER Bi [employer] Social History Tobacco Use Types [...] 11:25 AM CDT Message sent through other [employer] chart message * Yonatan Rodriguez RN - 02/23/2022 10:24 AM CDT Please see note. Thanks documented in this encounter Plan of Treatment Not on file documented as of this encounter Visit Diagnoses Not on filedocumented in this encounter Care Teams Broadcast Journalist Relationship Specialty Start Date End Date Joyce Luevano NP [address] [place] [address] PCP - General NURSE PRACTITIONER 01/14/20 10/26/23 Marielena Smallwood MD [address] [place] [id number] PCP - General FAMILY PRACTICE 10/27/23 Frank Toure MD [address] [place] [address] Stedman Rails Developer CARDIOVASCULAR DISEASE 05/30/16 documented as of this encounter
[2025-04-11 08:11] LABS: INR 1.0; Prothrombin Time 13.6 Seconds (11.1-14.7)
[2025-04-11 08:12] LABS: Partial Thromboplastin Time 30.1 Seconds (22.3-36.8)
[2025-04-11 08:17] LABS: Alanine Aminotransferase 107 U/L (6-50); Albumin Level 4.2 g/dL (3.5-5.1); Alkaline Phosphatase 116 U/L (38-126); Anion Gap 9 mmol/L (4-12); Aspartate Amino Transferase 75 U/L (17-59); Bilirubin,Total 0.4 mg/dL (0.2-1.3); Blood Urea Nitrogen 18 mg/dL (9-20); Calcium 9.9 mg/dL (8.4-10.2); Carbon Dioxide 30 mmol/L (22-30); Chloride 102 mmol/L (98-107); Estimated CRCL calculation 105 ml/min; Estimated Glomerular Filt Rate > 60; Glucose 128 mg/dL (65-110); Potassium 4.1 mmol/L (3.4-5.0); Sodium 141 mmol/L (137-145); Total Protein 7.8 g/dL (6.3-8.2)
[2025-04-11] MEDS: SODIUM CHLORIDE 0.9% IV 1,000 ML 999 ML IV CONT ×2 (08:23→10:24)
--- NOTE | 2025-04-11 09:16 | ED.SEIZURE ---
HPI - Seizure General Chief Complaint: Seizure Stated Complaint: seizure Time Seen by Provider: 04/11/25 07:31 History of Present Illness HPI Narrative: patient is a 65-year-old male who presents ER after having a seizure. Patient has seizure at his assisted and received 8 mg of Ativan through his G-tube. He is now sleeping. He is tachycardic. He has a chronic trach patient. He did not receive his home Keppra or lacosamide this morning. Otherwise he has had normal therapy/Treatment up to now. Tramadol listed as a prescribed medication but after contacting assisted they report he has not received any. Seizure History: Yes Related Data Home Medications ?Medication ?Instructions ?Recorded ?Confirmed ?Last Taken ?Type polyethylene glycol 3350 17 17 g feeding tube DAILY PRN 12/18/22 01/02/25 01/01/25 17:10 History gram/dose oral powder Constipation 17 grams bisacodyl 10 mg rectal suppository 10 mg RECTAL DAILY PRN Constipation 02/11/23 01/02/25 10/17/24 01:50 History 10 mg sennosides 8.6 mg tablet (senna) 8.6 mg feeding tube BID 02/11/23 01/02/25 01/01/25 08:05 History 8.6 mg guaifenesin 100 mg/5 mL oral liquid 300 mg feeding tube Q12H PRN Cough 07/08/23 01/02/25 10/17/24 05:50 History 300 mg magnesium hydroxide 400 mg/5 mL 30 ml feeding tube HS PRN 12/13/23 01/02/25 09/11/24 12:10 History oral suspension (Milk of Magnesia) Constipation 30 mL atorvastatin 40 mg tablet 40 mg feeding tube HS 02/10/24 01/02/25 01/01/25 20:45 History 40 mg calcium carbonate 500 mg/5 mL (as 1,250 mg feeding tube Q6H PRN 02/10/24 01/02/25 Unknown History calcium carb 1,250 mg/5 mL) oral Heartburn suspension folic acid 1 mg tablet 1 mg feeding tube DAILY 02/10/24 01/02/25 01/01/25 07:05 History 1 mg ipratropium 0.5 mg-albuterol 3 mg 3 ml inhalation Q6H PRN Shortness 02/10/24 01/02/25 Unknown History (2.5 mg base)/3 mL nebulization Of Breath soln magnesium citrate (Citroma oral 296 ml feeding tube DAILY PRN 02/10/24 01/02/25 Unknown History solution) Constipation thiamine HCl (vitamin B1) 100 mg 100 mg feeding tube DAILY 02/10/24 01/02/25 01/01/25 08:10 History tablet 100 mg acetaminophen 650 mg/20.3 mL oral 650 mg feeding tube Q4H PRN Pain 03/30/24 01/02/25 12/24/24 00:10 History suspension (Scale Score 1-3) 650 mg aspirin 81 mg chewable tablet 81 mg feeding tube DAILY 03/30/24 01/02/25 01/01/25 08:05 History 81 mg finasteride 5 mg tablet 5 mg feeding tube DAILY 10/18/24 01/02/25 01/01/25 08:10 History 5 mg glycopyrrolate 2 mg tablet 2 mg feeding tube Q8H 10/18/24 01/02/25 01/01/25 17:00 History 2 mg ondansetron HCl 4 mg tablet 4 mg feeding tube Q6H PRN nausea 10/18/24 01/02/25 10/15/24 00:50 History and vomiting 4 mg Allergies Allergy/AdvReac Type Severity Reaction Status Date / Time tramadol AdvReac Intermediate Anxiety Verified 01/01/25 22:14 clonazepam AdvReac Unknown drowsiness Verified 01/01/25 22:14 Review of Systems Review of Systems: ROS unobtainable: Yes unobtainable due to mental status PMFSH Past Medical History Medical History Pneumonia Acute lactic acidosis History of multiple strokes Residual expressive aphasia, dysphagia, and left-sided weakness. Esophagitis Anemia Aspiration pneumonia Elevated LFTs Atrial fibrillation with rapid ventricular response Thrombocytopenia Rash of face Lung collapse Right Mucus plugging of bronchi Increased tracheal secretions Epilepsy Intractable seizure disorder Status epilepticus Severe sepsis Tracheitis Sepsis with acute hypoxic respiratory failure Acute kidney injury UTI (urinary tract infection) Acute pancreatitis Diarrhea Cholecystitis Pancreatitis 09/2024 Deep venous thrombosis of upper extremity Benign prostatic hyperplasia Esophageal diverticulum Gastroparesis Iron deficiency anemia Vascular dementia with psychotic disturbance Surgical History Surgical History History of gastrostomy tube placement (07/09/23) History of tracheostomy History of left above knee amputation Family History Family History Other Unknown family medical history Social History Social History Social History: Surrogate medical decision maker: Adriane Hilliard, sibling. Code status: Full code. 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 HEAD: Normocephalic, atraumatic. EYES: PERRL and EOMI. ENT: Mucous membranes moist. NECK: Supple. tracheostomy present without significant secretions or erythema/drainage. CHEST: Clear to auscultation. No respiratory distress. HEART: Tachycardic and regular. Normal peripheral pulses. ABDOMEN: Soft, nontender, nondistended. EXTREMITIES: Left AKA. RLE in padded bootie. Chronically weak from CVA SKIN: Warm, dry, no rash. NEURO: Sedated Course Course Emergency Course: Prolonged observation, the Ativan has metabolized patient is now waking up interacting. He has had no seizures here. He has been given his home seizure medications through his G-tube. He has received 2 L of IV fluid in his heart rate is improving. Vital Signs Vital signs: Vital Signs Temperature 97.6 F 04/11/25 07:29 Pulse Rate 152 H 04/11/25 07:29 Respiratory Rate 28 H 04/11/25 07:29 Blood Pressure 111/84 04/11/25 07:29 Pulse Oximetry 98 04/11/25 07:29 Oxygen Delivery Room Air 04/11/25 07:29 Temperature 97.6 F 04/11/25 07:29 Pulse Rate 112 H 04/11/25 17:56 Respiratory Rate 25 H 04/11/25 17:56 Blood Pressure 146/89 H 04/11/25 17:56 Pulse Oximetry 100 04/11/25 16:43 Oxygen Delivery Nasal Cannula 04/11/25 07:37 Oxygen Flow Rate 2 04/11/25 07:37 MDM - Seizure Differential Diagnosis Differential diagnosis: Likely intractable seizure disorder, generalized seizure and other ( Sepsis, tracheal occlusion, pneumonia, UTI) Medical Records Attestation: I reviewed the patient's medical records. Lab Data Attestation: I reviewed the patient's lab results. 04/11/25 07:51 04/11/25 07:51 Labs: Lab Results 04/11/25 04/11/25 04/11/25 Range/Units 07:51 10:03 16:45 WBC 8.5 (4.5-10.0) K/mm3 RBC 4.57 L (4.6-6.20) M/mm3 Hgb 14.4 (14.0-18.0) g/dL Hct 43.9 (42.0-52.0) % MCV 96.1 (80-100) fl MCH 31.5 (26-34) pg MCHC 32.8 (32-36) g/dl RDW 13.8 (11.5-14.5) % Plt Count 209 (150-375) k/mm3 MPV 11.5 H (7.4-10.4) fl Immature Gran % (Auto) 0.2 (0-0.5) % Neut % (Auto) 68.1 (45.5-73.1) % Lymph % (Auto) 21.1 (18.3-44.2) % [place] % (Auto) 9.0 H (2.6-8.5) % Eos % (Auto) 1.4 (0-4.4) % Baso % (Auto) 0.2 (0.2-1.2) % Lymph # (Auto) 1.80 (0.9-3.2) K/mm3 [place] # (Auto) 0.8 H (0.1-0.6) K/mm3 Eos # (Auto) 0.1 (0-0.3) K/mm3 Baso # (Auto) 0.0 (0.0-0.1) K/mm3 Abs Immat Gran (auto) 0.02 (0.00-0.031) K/mm3 Absolute Neuts (auto) 5.8 (1.3-6.7) K/mm3 Absolute Nucleated RBC 0.000 (0.0-0.012) K/mm3 Nucleated RBC % 0.0 (0.0-0.2) % PT 13.6 (11.1-14.7) Seconds INR 1.0 APTT 30.1 (22.3-36.8) Seconds Sodium 141 (137-145) mmol/L Potassium 4.1 (3.4-5.0) mmol/L Chloride 102 (98-107) mmol/L Carbon Dioxide 30 (22-30) mmol/L Anion Gap 9 (4-12) mmol/L BUN 18 (9-20) mg/dL Creatinine 0.57 L (0.7-1.3) mg/dL Estim Creat Clear Calc 105 ml/min Estimated GFR > 60 (59 - ) Glucose 128 H (65-110) mg/dL Lactic Acid 2.4 H 2.1 H (0.7-2.0) mmol/L Calcium 9.9 (8.4-10.2) mg/dL Total Bilirubin 0.4 (0.2-1.3) mg/dL AST 75 H (17-59) U/L ALT 107 H (6-50) U/L Alkaline Phosphatase 116 (38-126) U/L Total Protein 7.8 (6.3-8.2) g/dL Albumin 4.2 (3.5-5.1) g/dL Urine Color Yellow (Yellow) Urine Appearance Cloudy H (Clear) Urine pH 8.0 (5.0-9.0) Ur Specific [place] 1.016 (1.001-1.035) Urine Protein Trace (Negative) mg/dL Urine Glucose (UA) Negative (Negative) mg/dL Urine Ketones Negative (Negative) mg/dL Ur Blood (Man) Negative (Negative) Urine Nitrate Negative (Negative) Urine Bilirubin Negative (Negative) Urine Urobilinogen 1.0 (<2.0) mg/dL Leukocyte Esterase Rfl Trace H (Negative) NOEL/UL Urine RBC 0-2 (0-2) /hpf Urine WBC 0-5 (0-3) /hpf Ur Squamous Epith Cells None seen (Few) /hpf Urine Bacteria None seen /hpf Urine Casts 0-2 Imaging Data Radiologist's impression: ITS Impressions Chest X-Ray 04/11/25 08:16 Impression: No acute cardiopulmonary abnormality. Head CT 04/11/25 10:21 IMPRESSION: 1. No acute intracranial findings. ECG Data EKG #1: ECG completion date: 04/11/25 ECG completion time: 07:34 EKG Interpretation: tachycardia (152), sinus rhythm, PVCs, non-specific ST changes and normal QRS Discharge Plan Discharge Clinical Impression: Recurrent seizures Patient Disposition: Home Condition: Stable Instructions: Recurrent Seizures in Adults (ED) Additional Instructions: return the ER if you have recurrent seizures, you cannot breathe, or you have additional concerns. You received her morning medication but are still due for your evening medication. Patient Language: Portuguese Prescriptions: No Action bisacodyl 10 mg Suppository 10 mg RECTAL DAILY PRN (Reason: Constipation) Rx Instructions: if no results for MOM sennosides [senna] 8.6 mg Tablet 8.6 mg feeding tube BID guaifenesin 100 mg/5 mL liquid 300 mg feeding tube Q12H PRN (Reason: Cough) magnesium hydroxide [Milk of Magnesia] 400 mg/5 mL Suspension 30 ml feeding tube HS PRN (Reason: Constipation) Rx Instructions: If no BM in 3 days metoclopramide HCl [Reglan] 10 mg tablet 10 mg feeding tube Q6H PRN (Reason: nausea and vomiting) Qty: 30 0RF lidocaine [Lidoderm] 5 % Adhesive Patch,Medicated 1 patch transdermal DAILY Qty: 30 0RF omeprazole 40 mg capsule,delayed release(DR/EC) 40 mg feeding tube DAILY Qty: 30 0RF metoprolol tartrate 25 mg tablet 37.5 mg feeding tube BID Qty: 60 0RF amoxicillin-pot clavulanate 250-62.5 mg/5 mL suspension for reconstitution 10 ml feeding tube Q8H 3 Days Qty: 90 0RF doxycycline hyclate 100 mg capsule 100 mg feeding tube BID 3 Days Qty: 6 0RF polyethylene glycol 3350 17 gram/dose powder 17 g feeding tube DAILY PRN (Reason: Constipation) atorvastatin 40 mg tablet 40 mg feeding tube HS ipratropium-albuterol 0.5 mg-3 mg(2.5 mg base)/3 mL solution for nebulization 3 ml INHALATION Q6H PRN (Reason: Shortness Of Breath) thiamine HCl (vitamin B1) 100 mg Tablet 100 mg feeding tube DAILY magnesium citrate [Citroma] Solution 296 ml feeding tube DAILY PRN (Reason: Constipation) Rx Instructions: if no results from enema folic acid 1 mg tablet 1 mg feeding tube DAILY calcium carbonate 500 mg/5 mL (1,250 mg/5 mL) Suspension 1,250 mg feeding tube Q6H PRN (Reason: Heartburn) aspirin 81 mg Tablet,Chewable 81 mg feeding tube DAILY acetaminophen 650 mg/20.3 mL Suspension 650 mg feeding tube Q4H PRN (Reason: Pain (Scale Score 1-3)) finasteride 5 mg tablet 5 mg feeding tube DAILY glycopyrrolate 2 mg tablet 2 mg feeding tube Q8H ondansetron HCl 4 mg tablet 4 mg feeding tube Q6H PRN (Reason: nausea and vomiting) amlodipine [Norvasc] 5 mg Tablet 5 mg feeding tube DAILY 30 Days Qty: 30 1RF isosorbide dinitrate 5 mg Tablet 5 mg feeding tube TID 30 Days Qty: 90 1RF levetiracetam 100 mg/mL solution 2,000 mg feeding tube BID 30 Days Qty: 0 1RF lacosamide 10 mg/mL solution 250 mg feeding tube BID 30 Days Qty: 200 2RF Follow-up/Referrals: Tay Arroyo [Other] - 1 Week
[2025-04-11] MEDS: levETIRAcetam ORAL SOL 500 MG/5 ML UDC 750 MG FEED TUBE (10:45)
[2025-04-11] MEDS: LACOSAMIDE (*CRX) 200 MG TABLET FEED TUBE (10:45)
[2025-04-11] MEDS: WATER, STERILE FOR INJECTION 10 ML VIAL XX (10:54)
--- NOTE | 2025-04-11 13:19 | PC.NURSE ---
Spoke to Adriane, pt POA at this time regarding pt update and POC. All questions answered.
--- NOTE | 2025-04-11 13:43 | PC.NURSE ---
Davide from [facility] in [place] given update on pt status and current POC. All questions answered.
[2025-04-11 16:57] LABS: Add Urine Microscopic? YES; Appearance Urine Cloudy (Clear); Glucose Urine UA Negative (Negative); Leukocyte Esterase Ur Trace LEU/UL (Negative); Nitrate Urine Negative (Negative); Non Pathogenic Casts 0-2; Specific Grav Ur 1.016 (1.001-1.035)
--- NOTE | 2025-04-11 18:17 | PC.NURSE ---
Spoke to [place], pt sibling and POA regarding pt condition at this time. All questions answered.
== END 2025-04-11 19:11 ==
PROVIDERS: Emergency Provider Emergency Medicine
DX: G40.909 Epilepsy, unspecified, not intractable, without status epilepticus (principal); I69.320 Aphasia following cerebral infarction; I69.354 Hemiplegia and hemiparesis following cerebral infarction affecting left non-dominant side; R13.10 Dysphagia, unspecified; F01.52 Vascular dementia, unspecified severity, with psychotic disturbance; I48.91 Unspecified atrial fibrillation; N40.0 Benign prostatic hyperplasia without lower urinary tract symptoms; K31.84 Gastroparesis; D50.9 Iron deficiency anemia, unspecified; Z93.1 Gastrostomy status; Z93.0 Tracheostomy status; Z87.01 Personal history of pneumonia (recurrent); Z86.718 Personal history of other venous thrombosis and embolism; Z87.440 Personal history of urinary (tract) infections; Z89.612 Acquired absence of left leg above knee; Z79.899 Other long term (current) drug therapy; Z79.82 Long term (current) use of aspirin; R00.0 Tachycardia, unspecified; I49.3 Ventricular premature depolarization; R94.31 Abnormal electrocardiogram [ECG] [EKG]
CPT/HCPCS: 36415; 70450; 71045; 80053; 81001; 83605; 85025; 85610; 85730; 93005; 96360; 96361; 99284; A9270; J7030

== ENCOUNTER 2025-05-02 08:22 | Emergency (ER) | payer OTHER, SELFPAY ==
[2025-05-02 08:25] VITALS: BP 153/96; PULSE 100; RESP 16; TEMP 36.4; O2SAT 100
--- OUTSIDE RECORDS SUMMARY | 2025-05-02 08:59 | XMS_ITS | Clinical Summary ---
Author Organization [facility] Address [address] [place] [address] Care Team Providers Care Senior Devops Engineer Name Role Phone Marielena Smallwood MD [...] 06/28/2024 Assessment & Plan (06/28/2024 11:42 AM JOB COACH): Now back on full TF's sugars running mildly high. Monitor with q4 accuchecks and SSI. Hypophosphatemia 06/27/2024 Assessment & Plan (06/28/2024 11:44 AM JOB COACH): <0.7 ? 2/2 refeeding syndrome. Started on neutraphos 2pkg QID 06/26. Still Phos<0.7 06/27. Tx with IV NaPhos 30mmoles and cont per tube replacement and monitor closely. -06/28: Phos=3.3, reduce nuetraphos to 1 PKG BID and monitor History of DVT (deep vein thrombosis) 06/26/2024 Assessment & Plan (06/26/2024 1:32 PM JOB COACH): -On anticoagulation with Eliquis 5 mg po BID for hx of DVT -per chart review hx of Left Subclavian vein DVT diagnosed 08/01/23 H/O: GI bleed 06/25/2024 Assessment & Plan (06/26/2024 1:32 PM JOB COACH): - recent admission at [facility] ( 06-07-24 [...] pt was scheduled for outpatient endoscopy at [facility] in June 2024 with recs for PPI b.i.d. for 8 weeks, pantoprazole pack 40 mg BID and continued on home anticoagulation with eliquis It appears he was not started on PPI at SNF where still getting pepcid per SNF order report summary -cont PPI BID and will prescribe at discharge. Patient to f/up with GI at [facility] as peviously arranged Tracheostomy in place 06/25/2024 Assessment & Plan (06/26/2024 1:36 PM JOB COACH): Tracheostomy dependence, has a Shiley #4 cuffed. Pt followed at [facility], per notes trach in place for pulmonary toilet due to his copious secretions and ongoing aspiration of his secretions. -needing frequent suctioning -sats stable on 28% FIO2 by HHTC -Was getting VEST at SNF Low grade fever 06/20/2024 Assessment & Plan (06/26/2024 1:34 PM JOB COACH): Low-grade fever and tachycardia, softer BP after [...] 06/17/2024 Assessment & Plan (06/28/2024 11:43 AM JOB COACH): -patient at admission with a G tube, [...] underwent G tube conversion to GJ at [facility] 12/14/22 (additional [facility] most recent 09/09/[facility]). Pt ' feeding tube fell off and pt had 18 [place] G tube placed at [facility] ED on 04/21/24 (records on care everywhere)and after that he has not tolerated well tube feedings per discussion with his sister Ms Hilliard,Adriane [phone] POA - consulted IR 06-20-24 for conversion [...] goal 06/25, adjust FWF per hydration status, school coordinator to follow up -On full TF's-osmolite 1.5. Phos repleted. Copious oral secretions 06/13/2024 Assessment & Plan (06/26/2024 1:29 PM JOB COACH): Patient on chronic glycopyrrolate due to secretions, held at admission 07/01 to potential for constipation with plan to add back when he's had a bowel movements -resume on 06-19- hold on 06-20 due to somnolence. Suction PRN - restart glycopyrrolate 1mg BID 06/26 and monitor Abdominal pain 06/12/2024 Assessment & Plan (06/26/2024 1:23 PM JOB COACH): -p/w abdominal distention from SNF to ED on 06-12 ,reported biliary emesis per group home (approximately 300 cc) , not associated fevers or change in bowel habits. Feeding tube placed to gravity drainage in ED H&P notes regular bowel movements. CT scan on 06-12 in ED with stool in the rectum and sigmoid. [place] likely constipation contributing to the patient's abdominal [...] 06/12/2024 Assessment & Plan (06/26/2024 12:08 AM JOB COACH): Complicated by left LE AKA. History of CVA (cerebrovascular accident) 2020 Assessment & Plan (06/26/2024 1:32 PM JOB COACH): - hx of RT parietal CVA- hx of dementia Cont asa and statin Essential hypertension 12/11/2020 Assessment & Plan (06/26/2024 1:30 PM JOB COACH): - on metoprolol and norvasc, held with soft BP 06-19 - resume metoprolol 06-21 -resume amlodipine 06-22 - Monitor Hyperlipidemia 12/11/2020 Assessment & Plan (06/12/2024 3:47 PM JOB COACH): - Continue home statin Seizure 12/10/2020 Assessment & Plan (06/26/2024 1:36 PM JOB COACH): History of seizure disorder secondary to traumatic brain injury. Currently on valproate, Vimpat, Keppra and Cobazam - Continue home medication, valproate level low at admit 48 on 06-12, 48 on 06-13, Valproic acid level 76 06-19 prior to dose, lacosamide level 1.4 on 06/12, 9.6 on 06-19 Followed by Neurology at [facility] Cognitive communication deficit 08/25/2020 Cerebrovascular [...] h recurrent seizures (HCC) Followed up at [facility] ([facility]) Degenerative cervical spinal stenosis Family History Medical History Relation Name Comments Coronary artery disease Father Stroke Father Hypertension Mother Relation Name Status Comments Father Mother Social History Tobacco Use Types Packs/Day Years Used Date Smoking Tobacco: Former Cigarettes Smokeless Tobacco: Current Tobacco Cessation:Counseling Given: Yes [facility] Utilities Answer Date Recorded In the past 12 months has e [employer], gas, oil, or water company threatened to [...] any clubs o r organizations such as quaker groups, unions, fraternal or athletic groups, or [...] any time in the past 12 m [facility], were you homeless or living in a assisted (including now)? No 06/18/2024 Personal Safety Answer Date Recorded Have you ever been in or are you currently in a harmful physical or emotional relationship or is someone making you feel afraid or unsafe? Denies 07/08/2024 Sex and Gender Information Value Date Recorded Sex Assigned at Not on file Legal Sex Male 6:11 AM JOB COACH Gender Identity Not on file Sexual Orientation Not on file Last Filed Vital Signs Vital Sign Reading Time Taken Comments Blood Pressure 145/83 07/09/2024 6:00 AM JOB COACH Pulse 91 07/09/2024 6:00 AM JOB COACH Temperature 36.5 C (97.7 F) 07/09/2024 6:31 AM JOB COACH Respiratory Rate 10 07/09/2024 6:00 AM JOB COACH Oxygen Saturation 100% 07/09/2024 6:00 AM JOB COACH Inhaled Oxygen Concentration - - Weight 79.8 kg (176 lb) 07/09/2024 2:16 AM JOB COACH Height 182.9 cm (6') 07/09/2024 2:16 AM JOB COACH Body Mass Index 23.87 07/09/2024 2:16 AM JOB COACH Plan of Treatment Health Maintenance Due Date Last Done Comments Albumin Creatinine Ratio, Urine 1961 Colon Cancer Screening-Colonoscopy 1961 Prostate Cancer Screening-PSA 1961 Dilated Eye Exam 1961 Foot Exam 1961 Hepatitis B Screening 1979 Regular Well Visit/Exam 18-64 1979 Zoster Vaccine (1 of 2) 2011 Pneumococcal vaccine <65 (2 of 2 - PCV) 02/03/2017 02/04/2016, 08/13/2015, 02/07/2015 Covid-19 Vaccine ( - 2024-2 6 season) 2025 04/06/2021, 07/02/2020, [...] Diagnosis Comments EGFR STAT 07/08/2024 8:56 PM JOB COACH HEPATITIS C ANTIBODY Routine 06/26/2024 3:21 PM JOB COACH HEMOGLOBIN A1C Routine 06/12/2024 3:30 PM JOB COACH TNI WITH LIPID PANEL Routine 08/24/2017 4:57 PM CDT from Last 3 Months or Most Recently Relevant to Health Maintenance Results * eGFR (07/08/2024 8:56 PM JOB COACH) eGFR >90 >=60 mL/min/1. 73 m2 Comment: [...] last reviewed 2021. Blood 07/08/2024 8:56 PM JOB COACH 07/08/2024 9:26 PM JOB COACH Naa Tam MD LAB BLOOD ORDERABLES Fin al Result Performing Organization Address [facility] Co de Phone Number [facility] [place] [address] * Hepatitis C antibody Blood (06/26/2024 3:21 PM JOB COACH) Pathologist [facility] Hep C Ab Nonreactive Nonreactive Comment:Antibodies to HCV no t detected. Does NOT exclude the possibility of recent exposure to HCV. Current interpretive data was last revised on 22 Blood 06/26/2024 3:21 PM JOB COACH 06/26/2024 3:41 PM JOB COACH Result [facility] Kami Dupont MD LAB MICROBIOLOGY - GENERA L ORDERABLES Final Result Performing Organization Address [facility] de Phone Number [facility] [place] [address] * Hemoglobin A1c (06/12/2024 3:30 PM JOB COACH) [facility] Hgb A1C 4.9 4.0 - 5.6 % Estimated Average Glucose 94 mg/dL [facility] Comment: The ADA recommends reporting an estimated Average Glucose (eAG) with all Hemoglobin A1c results using the equation derived from a study of 507 normal and diabetic adults. Minority populations were underrepresented and children were not included. (Diabetes Care 2020; 43(S1): S66-S76). The eAG is not equivalent to a fasting glucose. Blood 06/12/2024 3:30 PM JOB COACH 06/12/2024 5:10 PM JOB COACH Result [facility] Ryan Jauregui MD LAB BLOOD ORDERABLES Final Resul t Performing Organization Address [facility] Co de Phone Number [facility] Department [place] [address] * TNI with LIPID PANEL (08/24/2017 4:57 PM CDT) Troponin I < 0.300 0.000 - 0.300 ng/mL 08/24/2017 5:29 PM CDT [facility] [employer] HISTORICAL RESULTS Comment: Reference using JERRICA Chemiluminescence Negative: Repeat in 4-6 hours as indicated. Triglycerides 34 0 - 199 mg/dL 08/24/2017 5:30 PM CDT [facility]IST[facility] RESULTS Comment:12 hr pc highly avani mmended for Triglyceride Cholesterol 129 0 - 199 mg/dL 08/24/2017 5:30 PM T [facility] HISTORICAL RESULTS Comment: Borderline: 200-239 High Risk: >239 HDL Cholesterol 71 mg/dL 8 5:30 PM CDT [facility] HISTORICAL RESULTS Comment: Reference Ranges: Males: >=40 mg/dL Females: >=50 mg/dL LDL Cholesterol, Calc 51 0 - 130 mg/dL 08/24/2017 5:30 PM CDT [facility] HISTORICAL RESULTS Comment:High Risk > 159 mg/d L Cholesterol/HDL Ratio 1.8 08/24/2017 5:30 PM T [facility] HISTORICAL RESULTS Comment: Cholesterol / HDL Ratio 3.5:1 or less is desirable. Cholesterol / HDL Ratio greater than 5:1 is considered higher risk for developing heart disease. 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 Source: [facility] CLO [employer] 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 Source: [facility] [employer] 4/22/23 Acinetobacter os 09/18/2022 Insurance Member Subscriber Plan / Payer (Ef fective 2018-Present) Name:Bi Tabor Relation to Subscriber:Self Name:Bi Tabor Payer ID:[id number] (NAIC) Group ID:Not on file Type:MEDICAID RISK OTHER Address: [address] [place], [place] [id number] [place] [address] [facility] [place] Advance Directives For more information, please contact: [phone] Documents on File Type Date Recorded Patient General Education Professor Expl anation ADVANCE DIRECTIVE 10/08/2012 12:00 AM SANDRA R OF STORE CLERK FINANCIAL/MEDICAL * Full Code (Latest Code Status on File) Date Activated Date Inactivated Comments 06/12/2024 3:22 PM 06/28/2024 9:30 PM * Full Code Date Activated Date Inactivated Comments 12/10/2020 9:05 AM 12/13/2020 10:44 PM Care Teams Senior Devops Engineer Relationship Specialty Start Date End Date Marielena Smallwood MD [address] [facility] [place] [address] PCP - General Family Practice 07/08/24
--- OUTSIDE RECORDS SUMMARY | 2025-05-02 08:59 | XMS_ITS | Encounter Summary ---
Author Organization [facility] Address [address] [place] [place] [address] Care Team Providers Care Security Clerk Name Role Phone Elizabeth Sullivan RN Unavailable [phone] Jack Arroyo MD Primary Care Provider Rosie marsh Reason for Visit * Reason Onset Date Comments Appointment 11/05/2024 Encounter Details Date Type Department Care Team (Late st Contact Info) Description 11/05/2024 Telephone [facility] - Centralized Scheduling [facility] [place] [address] Alden Hurtado MD [address] [facility] [address] [place] [address] Appointment Social History Tobacco Use Types Packs/Day [...] and heating? Not hard at all 08/06/2024 [facility] [place] of Occupat ional Health - Occupational Stress [...] any time in the past 12 m [facility], were you homeless or living in a fpc (including now)? No 08/06/2024 Sex and Gender Information Value Date Recorded Sex Assigned at Not on file Legal Sex Male 5:07 PM CARTON MAKING MACHINE OPERATOR Gender Identity Not on file Sexual Orientation Not on file documented as of this encounter Functional Status * Is person deaf or have serious hearing difficulty? Answer Date of Assessment Author No 07/17/2024 2:53 PM CARTON MAKING MACHINE OPERATOR Mahogany Jay RN * Is person blind or have serious difficulty seeing? Answer Date of Assessment Author No 07/17/2024 2:53 PM CARTON MAKING MACHINE OPERATOR Mahogany Jay RN * Does person have serious difficulty walking/climbing stairs? Answer Date of Assessment Author Yes 07/17/2024 2:53 PM CARTON MAKING MACHINE OPERATOR Mahogany Jay RN * Does person have difficulty dressing/bathing? Answer Date of Assessment Author Yes 07/17/2024 2:53 PM CARTON MAKING MACHINE OPERATOR Mahogany Jay RN * Does person have difficulty doing errands alone? Answer Date of Assessment Author Yes 07/17/2024 2:53 PM CARTON MAKING MACHINE OPERATOR Mahogany Jay RN documented as of this encounter Mental Status * Does person have difficulty concentrating/remembering/making decisions? 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 Source: [facility] 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 John Seipel Infection Prevention 09/18/2022 MDRO Hx 09/18/2022 11/27/2024 MRSA 06/11/2023 06/11/2023 11/27/2024 7:23 AM CDT MRSA Hx 06/11/2023 11/27/2024 documented as of this encounter Care Teams Security Clerk Relationship Specialty Start Date End Date Jack Arroyo MD [address] [place] [address] PCP - General 10/17/24 Elizabeth Sullivan, RN Dredge Worker 10/14/17 documented as of this encounter
--- OUTSIDE RECORDS SUMMARY | 2025-05-02 08:59 | XMS_ITS | Clinical Summary ---
Author Organization [facility] Address [address] [place] [address] Care Team Providers Care Coding Team Lead Name Role Phone Elizabeth Sullivan RN Unavailable [phone] Jack Arroyo MD Primary Care Provider Rosie marsh Source Comments [facility],non-owned Affiliates and Associated Physician Practices is amultiple site organization consisting of ambulatory clinics and hospital sitesin [place], [place] and [place]. This disclosure is being madepursuant to the Care Everywhere program and may not contain all information available regarding this patient. Last updated 18.[facility] Allergies Active Allergy Reactions Criticality Noted Date [...] reinsertion -d/c mIVF w/ TF initiation per pharmacy operations manager recs 01/18 -no repeat AM labs ordered, [...] Hospital Transfer Checklist: Reasons for Transfer to [facility]: Delay in Discharge/Difficult Discharge due to [...] follow up questions: Yue Rojas, resident [address] Consultants that need to be Informed Prior to Discharge (especially for follow up appointment scheduling, please include any contact info): N/a Checklist Items: [x] Patient and/or family notified of potential transfer to [facility] [x] Patient added to [facility] Transfer List [x] Routine labs updated [...] Hospital Transfer Checklist: Reasons for Transfer to [facility]: Delay in Discharge/Difficult Discharge due to [...] and/or family notified of potential transfer to [facility] [x] Patient added to [facility] Transfer List [x] Routine labs updated [...] textures & thin liquids for practice/pleasure with PIN TICKET MACHINE OPERATOR -respiratory therapy, titrate supplemental O2 to maintain O2 sat 90-98% via trach collar -trach care BID & PRN (facility to cont/resume baseline care after discharge) Assessment & Plan (01/18/2025 6:22 PM CDT): -follows w/ ENT outpatient -s/p repeat MBS 01/18 while inpatient w/ recs to start pureed textures & thin liquids for practice/pleasure with PIN TICKET MACHINE OPERATOR (plan to d/w PIN TICKET MACHINE OPERATOR bedside attempt 01/19) -respiratory therapy, titrate supplemental O2 to maintain O2 sat 90-98% via trach collar -trach care BID & PRN Assessment & Plan (01/17/2025 1:12 PM CDT): -follows w/ ENT outpatient -ENT PIN TICKET MACHINE OPERATOR to complete previously scheduled OP MBS tomorrow [...] textures & thin liquids for practice/pleasure with PIN TICKET MACHINE OPERATOR -respiratory therapy, titrate supplemental O2 to maintain O2 sat 90-98% via trach collar -trach care BID & PRN (facility to cont/resume baseline care after discharge) Assessment & Plan (01/18/2025 6:22 PM CDT): -follows w/ ENT outpatient -s/p repeat MBS 01/18 while inpatient w/ recs to start pureed textures & thin liquids for practice/pleasure with PIN TICKET MACHINE OPERATOR (plan to d/w PIN TICKET MACHINE OPERATOR bedside attempt 01/19) -respiratory therapy, titrate supplemental O2 to maintain O2 sat 90-98% via trach collar -trach care BID & PRN Assessment & Plan (01/17/2025 1:12 PM CDT): -follows w/ ENT outpatient -ENT PIN TICKET MACHINE OPERATOR to complete previously scheduled OP MBS tomorrow [...] Assessment & Plan (01/19/2025 1:33 PM CDT): -pharmacy operations manager following, confirmed MPCM dx criteria met -restarted TF per pharmacy operations manager recs 01/18 as above Assessment & Plan (01/18/2025 6:22 PM CDT): -pharmacy operations manager following, confirmed [facility] dx criteria met -restart TF per pharmacy operations manager recs 01/18 as above Assessment & Plan [...] No evidence of infection Urine cultures from [facility] last month were negative growth as [...] Encounters Date Type Department Care Team Description 04/30/2025 Telephone [facility] - ENT [address] [place] [address] Alden Hurtado MD Question 04/11/2025 [facility] - ENT [address] [place] [address] Alden Hurtado MD Question 02/17/2025 8:29 AM CDT - 02/17/2025 1:42 PM CDT Emergency [facility] [address] [place] [address] Artemio Soliman DO Complication of tracheostomy tube (HCC) (Primary Dx); Encounter for tracheostomy tube change (HCC) Discharge Disposition: Alf Facility 02/17/2025 Travel from Last 3 Months Immunizations Immunization Administration Dates Next Due BCG [facility], HISTORIC VACCINE 03/18/2021 COVID MODERNA 6M-11Y 25MCG/0.25ML 07/02/2020, Covid Pfizer primary monoval ent 12+ yr 0.3mL Purple cap 04/06/2021,07/02/2020,06/11/2020 INFLUENZA [id number], HISTORIC VACCINE 02/27,03/07/2020,03/14/2019,2014 INFLUENZA VACCINE 02/01/2022,,03/07/2020,2018,03/24/2018,06/15/2017,06/23/2016,1 06/23/2014,03/19/2015 [...] and heating? Not hard at all 01/17/2025 [facility] - [...] time in the past 12 m [facility], were you homeless or living in a mcfp (including now)? No 01/17/2025 Sex and Gender Information Value Date Recorded Sex Assigned at Not on file Legal Sex Male 5:07 PM DIGITAL FORENSICS INVESTIGATOR Gender Identity Not on file Sexual Orientation [...] st Contact Info) Description 05/15/2025 11:00 AM DIGITAL FORENSICS INVESTIGATOR Office Visit [facility] - Neurology [facility] [place] [address] Yana Rm APRN-NAPPER FIXER [address] [place] [id number] Health Maintenance Due Date Last Done Comments COLOGUARD (AGES 45-75) - COLON CA SCREENING 1961 COLON MONITORING 1961 COLONOSCOPY - COLON CA SCREENING 1961 CT COLONOGRAPHY - COLON CA SCREENING 1961 Colorectal Cancer Screening 1961 FIT - COLON CA SCREENING 1961 FLEX SIG - COLON CA SCREENING 1961 Respiratory Syncytial Virus (RSV) Vaccine Pt: or over 60 yrs (1 - Risk 50-74 years 1-dose series) 2011 ZOSTER VACCINE (1 of 2) 2011 PNEUMOCOCCAL VACCINE 50+ (2 of 2 - PCV) 02/03/2017 02/04/2016, 08/13/2015, 02/07/2015 DEPRESSION SCREENING 05/30/2024 COVID-19 VACCINE (4 - season) 2025 04/06/2021, 07/02/2020, 07/02/2020, Additional history exists INFLUENZA VACCINE (#1) 2025 2, 03/16/2021, 03/16/2021, Additional history exists DTAP/TDAP/TD VACCINES [...] Progress Patient-Stated? Author Safety General On track( 025 3:01 PM CDT) Angelina Arrington, RN Note: [...] the bathroom Medication Management General On track( 025 3:01 PM CDT) Angelina Arrington, RN Note: Expected end date: ongoing Interventions: Take all medications as prescribed Let your doctor know right away about any changes in your medications Make sure to request a refill of your medication at least one week prior to your last dose Procedures Procedure Name Priority Date/Time Associated Diagnosis Comments HEPATITIS C AB SCREEN RFLX NAAT QUANT Routine 09/01/2022 2:05 AM CDT HIV-1 HIV-2 ANTIBODY + HIV P24 AG PANEL Routine 09/01/2022 2:05 AM CDT from Last 3 Months or Most Recently Relevant to Health Maintenance Results * HEPATITIS C AB SCREEN RFLX NAAT QUANT (09/01/2022 2:05 AM CDT) Hepatitis C Antibody Non-react phan Non-reac tive 09/01/2022 3:09 AM CDT [facility] Comment:Hepatitis C Antibody screen indicates no serologic [...] LAB - CHEMISTRY ORDERABLES Fin al Result [facility] [address] [place] [id number], [facility] [phone] * HIV-1 HIV-2 ANTIBODY + HIV P24 AG PANEL (09/01/2022 2:05 AM CDT) Pathologist [facility] HIV Antigen/Antibod y 1 & 2 Non-reacti ve Non-react phan 09/01/2022 3:09 AM CDT [facility] Comment:No Laboratory eviden ce of HIV infection. 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 Source: [facility]. 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 [facility] Infection Prevention 09/18/2022 MDRO Hx 09/18/2022 11/27/2024 MRSA Hx 06/11/2023 11/27/2024 Insurance [facility] [place] [address] Advance Directives Documents on File Type Date Recorded Patient Operator Engineer Expl anation Adv Directive/Living Will/POA 01/28/2025 8:27 [...] 3:34 AM 07/19/2024 6:56 PM Care Teams Coding Team Lead Relationship Specialty Start Date End Date Jack Arroyo MD [address] [place] [address] PCP - General 10/17/24 Elizabeth Sullivan, ALFRED Marketing Instructor 10/14/17
[2025-05-02 09:11] LABS: Hematocrit 49.7 % (42.0-52.0); Hemoglobin 16.5 g/dL (14.0-18.0); Immature Granulocyte Percent A 0.2 % (0-0.5); Lymphocytes Absolute Auto 1.59 K/mm3 (0.9-3.2); Mean Corpuscular HGB Conc 33.2 g/dl (32-36); Mean Corpuscular Hemoglobin 32.0 pg (26-34); Mean Corpuscular Volume 96.5 fl (80-100); Nucleated Red Blood Cells Absolute Auto 0.000 K/mm3 (0.0-0.012); Nucleated Red Blood Cells Perc 0.0 % (0.0-0.2); Platelet Count Result 205 k/mm3 (150-375); Red Blood Count 5.15 M/mm3 (4.6-6.20); White Blood Count 8.8 K/mm3 (4.5-10.0)
[2025-05-02] MEDS: PANTOPRAZOLE SODIUM IV 40 MG VIAL IV PUSH (09:15)
[2025-05-02] MEDS: ONDANSETRON INJ 4 MG/2 ML VIAL IV PUSH (09:15)
[2025-05-02 09:29] LABS: Alanine Aminotransferase 60 U/L (6-50); Albumin Level 4.4 g/dL (3.5-5.1); Alkaline Phosphatase 138 U/L (38-126); Anion Gap 5 mmol/L (4-12); Aspartate Amino Transferase 45 U/L (17-59); Bilirubin,Total 0.4 mg/dL (0.2-1.3); Blood Urea Nitrogen 18 mg/dL (9-20); Calcium 9.9 mg/dL (8.4-10.2); Carbon Dioxide 31 mmol/L (22-30); Chloride 104 mmol/L (98-107); Estimated CRCL calculation 105 ml/min; Estimated Glomerular Filt Rate > 60; Glucose 109 mg/dL (65-110); Lipase 75 U/L (23-300); Magnesium 2.2 mg/dL (1.6-2.3); Potassium 4.0 mmol/L (3.4-5.0); Sodium 140 mmol/L (137-145); Total Protein 8.4 g/dL (6.3-8.2)
[2025-05-02 10:16] VITALS: BP 144/87; PULSE 95; RESP 17; O2SAT 100
[2025-05-02 10:21] VITALS: BP 144/86; PULSE 95; RESP 18; O2SAT 100
--- NOTE | 2025-05-02 10:41 | ED.GIBLEED ---
HPI - GI Bleed General Chief complaint: GI Bleed Stated complaint: coffee ground emesis Time Seen by Provider: 05/02/25 08:29 History of Present Illness HPI Narrative: [facility] presents here [facility] due to concern he had 1 episode of nausea, vomiting, with possible coffee-ground emesis Related Data Home Medications ?Medication ?Instructions ?Recorded ?Confirmed ?Last Taken ?Type polyethylene glycol 3350 17 17 g feeding tube DAILY PRN 12/18/22 01/02/25 01/01/25 17:10 History gram/dose oral powder Constipation 17 grams bisacodyl 10 mg rectal suppository 10 mg RECTAL DAILY PRN Constipation 02/11/23 01/02/25 10/17/24 01:50 History 10 mg sennosides 8.6 mg tablet (senna) 8.6 mg feeding tube BID 02/11/23 01/02/25 01/01/25 08:05 History 8.6 mg guaifenesin 100 mg/5 mL oral liquid 300 mg feeding tube Q12H PRN Cough 07/08/23 01/02/25 10/17/24 05:50 History 300 mg magnesium hydroxide 400 mg/5 mL 30 ml feeding tube HS PRN 12/13/23 01/02/25 09/11/24 12:10 History oral suspension (Milk of Magnesia) Constipation 30 mL atorvastatin 40 mg tablet 40 mg feeding tube HS 02/10/24 01/02/25 01/01/25 20:45 History 40 mg calcium carbonate 500 mg/5 mL (as 1,250 mg feeding tube Q6H PRN 02/10/24 01/02/25 Unknown History calcium carb 1,250 mg/5 mL) oral Heartburn suspension folic acid 1 mg tablet 1 mg feeding tube DAILY 02/10/24 01/02/25 01/01/25 07:05 History 1 mg ipratropium 0.5 mg-albuterol 3 mg 3 ml inhalation Q6H PRN Shortness 02/10/24 01/02/25 Unknown History (2.5 mg base)/3 mL nebulization Of Breath soln magnesium citrate (Citroma oral 296 ml feeding tube DAILY PRN 02/10/24 01/02/25 Unknown History solution) Constipation thiamine HCl (vitamin B1) 100 mg 100 mg feeding tube DAILY 02/10/24 01/02/25 01/01/25 08:10 History tablet 100 mg acetaminophen 650 mg/20.3 mL oral 650 mg feeding tube Q4H PRN Pain 03/30/24 01/02/25 12/24/24 00:10 History suspension (Scale Score 1-3) 650 mg aspirin 81 mg chewable tablet 81 mg feeding tube DAILY 03/30/24 01/02/25 01/01/25 08:05 History 81 mg finasteride 5 mg tablet 5 mg feeding tube DAILY 10/18/24 01/02/25 01/01/25 08:10 History 5 mg glycopyrrolate 2 mg tablet 2 mg feeding tube Q8H 10/18/24 01/02/25 01/01/25 17:00 History 2 mg ondansetron HCl 4 mg tablet 4 mg feeding tube Q6H PRN nausea 10/18/24 01/02/25 10/15/24 00:50 History and vomiting 4 mg Allergies Allergy/AdvReac Type Severity Reaction Status Date / Time tramadol AdvReac Intermediate Anxiety Verified 05/02/25 08:36 clonazepam AdvReac Unknown drowsiness Verified 05/02/25 08:36 Review of Systems Review of Systems: All systems reviewed & are unremarkable except as noted in HPI and below PMFSH Past Medical History Medical History Pneumonia Acute lactic acidosis History of multiple strokes Residual expressive aphasia, dysphagia, and left-sided weakness. Esophagitis Anemia Aspiration pneumonia Elevated LFTs Atrial fibrillation with rapid ventricular response Thrombocytopenia Rash of face Lung collapse Right Mucus plugging of bronchi Increased tracheal secretions Epilepsy Intractable seizure disorder Status epilepticus Severe sepsis Tracheitis Sepsis with acute hypoxic respiratory failure Acute kidney injury UTI (urinary tract infection) Acute pancreatitis Diarrhea Cholecystitis Pancreatitis 09/2024 Deep venous thrombosis of upper extremity Benign prostatic hyperplasia Esophageal diverticulum Gastroparesis Iron deficiency anemia Vascular dementia with psychotic disturbance Surgical History Surgical History History of gastrostomy tube placement (07/09/23) History of tracheostomy History of left above knee amputation Family History Family History Other Unknown family medical history Social History Social History Social History: Surrogate medical decision maker: Adriane Hilliard, sibling. Code status: Full code. 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 EYES: EOMI, conjunctiva normal ENT: Trach in place, normal appearing secretions LUNGS: Nonlabored breathing. HEART: [Regular rate and rhythm] ABD: [Soft], [nontender to palpation] EXT: No obvious deformity SKIN: [No rashes or lesions.] NEURO: [Alert.] PSYCH: Normal affect Course Vital Signs Vital signs: Vital Signs Temperature 97.6 F 05/02/25 08:25 Pulse Rate 100 05/02/25 08:25 Respiratory Rate 16 05/02/25 08:25 Blood Pressure 153/96 H 05/02/25 08:25 Pulse Oximetry 100 05/02/25 08:25 Oxygen Delivery Trach Collar 05/02/25 08:25 Oxygen Flow Rate 2 05/02/25 08:25 Temperature 97.6 F 05/02/25 08:25 Pulse Rate 95 05/02/25 10:21 Respiratory Rate 18 05/02/25 10:21 Blood Pressure 144/86 H 05/02/25 10:21 Pulse Oximetry 100 05/02/25 10:21 Oxygen Delivery Trach Collar 05/02/25 08:25 Oxygen Flow Rate 2 05/02/25 08:25 [facility] Narrative Medical decision making narrative: Patient presents here with reported coffee ground emesis, since arrival here he denies any complaints or symptoms. On my rectal exam stool was yellow, Hemoccult negative. Abdomen soft nontender. Given Zofran and Protonix here, labs obtained within baseline limits. He feels fine and has no complaints and no further emesis here. Stable for discharge I do feel with follow-up to PCP/GI with return precautions. Differential Diagnosis Differential Diagnosis: Upper GI bleed, SBO, gastritis, etc. Lab Data 05/02/25 08:59 05/02/25 08:59 Labs: Lab Results 05/02/25 Range/Units 08:59 WBC 8.8 (4.5-10.0) K/mm3 RBC 5.15 (4.6-6.20) M/mm3 Hgb 16.5 (14.0-18.0) g/dL Hct 49.7 (42.0-52.0) % MCV 96.5 (80-100) fl MCH 32.0 (26-34) pg MCHC 33.2 (32-36) g/dl RDW 13.5 (11.5-14.5) % Plt Count 205 (150-375) k/mm3 MPV 11.7 H (7.4-10.4) fl Immature Gran % (Auto) 0.2 (0-0.5) % Neut % (Auto) 71.7 (45.5-73.1) % Lymph % (Auto) 18.0 L (18.3-44.2) % [place] % (Auto) 6.6 (2.6-8.5) % Eos % (Auto) 3.2 (0-4.4) % Baso % (Auto) 0.3 (0.2-1.2) % Lymph # (Auto) 1.59 (0.9-3.2) K/mm3 [place] # (Auto) 0.6 (0.1-0.6) K/mm3 Eos # (Auto) 0.3 (0-0.3) K/mm3 Baso # (Auto) 0.0 (0.0-0.1) K/mm3 Abs Immat Gran (auto) 0.02 (0.00-0.031) K/mm3 Absolute Neuts (auto) 6.3 (1.3-6.7) K/mm3 Absolute Nucleated RBC 0.000 (0.0-0.012) K/mm3 Nucleated RBC % 0.0 (0.0-0.2) % Sodium 140 (137-145) mmol/L Potassium 4.0 (3.4-5.0) mmol/L Chloride 104 (98-107) mmol/L Carbon Dioxide 31 H (22-30) mmol/L Anion Gap 5 (4-12) mmol/L BUN 18 (9-20) mg/dL Creatinine 0.58 L (0.7-1.3) mg/dL Estim Creat Clear Calc 105 ml/min Estimated GFR > 60 (59 - ) Glucose 109 (65-110) mg/dL Lactic Acid 1.9 (0.7-2.0) mmol/L Calcium 9.9 (8.4-10.2) mg/dL Magnesium 2.2 (1.6-2.3) mg/dL Total Bilirubin 0.4 (0.2-1.3) mg/dL AST 45 (17-59) U/L ALT 60 H (6-50) U/L Alkaline Phosphatase 138 H (38-126) U/L Total Protein 8.4 H (6.3-8.2) g/dL Albumin 4.4 (3.5-5.1) g/dL Lipase 75 (23-300) U/L Blood Type O Positive Antibody Screen Negative Discharge Plan Discharge Clinical Impression: Nausea & vomiting Patient Disposition: [facility] Living Condition: Stable Instructions: Acute Nausea and Vomiting (ED) Additional Instructions: Continue taking your medications at home, and please follow-up with the GI specialist. If your symptoms return or worsen, please come back to the ER. Patient Language: Kazakh Prescriptions: New ondansetron 4 mg tablet,disintegrating 4 mg PO Q8H PRN (Reason: nausea and vomiting) Qty: 10 0RF No Action bisacodyl 10 mg Suppository 10 mg RECTAL DAILY PRN (Reason: Constipation) Rx Instructions: if no results for MOM sennosides [senna] 8.6 mg Tablet 8.6 mg feeding tube BID guaifenesin 100 mg/5 mL liquid 300 mg feeding tube Q12H PRN (Reason: Cough) magnesium hydroxide [Milk of Magnesia] 400 mg/5 mL Suspension 30 ml feeding tube HS PRN (Reason: Constipation) Rx Instructions: If no BM in 3 days metoclopramide HCl [Reglan] 10 mg tablet 10 mg feeding tube Q6H PRN (Reason: nausea and vomiting) Qty: 30 0RF lidocaine [Lidoderm] 5 % Adhesive Patch,Medicated 1 patch transdermal DAILY Qty: 30 0RF omeprazole 40 mg capsule,delayed release(DR/EC) 40 mg feeding tube DAILY Qty: 30 0RF metoprolol tartrate 25 mg tablet 37.5 mg feeding tube BID Qty: 60 0RF amoxicillin-pot clavulanate 250-62.5 mg/5 mL suspension for reconstitution 10 ml feeding tube Q8H 3 Days Qty: 90 0RF doxycycline hyclate 100 mg capsule 100 mg feeding tube BID 3 Days Qty: 6 0RF polyethylene glycol 3350 17 gram/dose powder 17 g feeding tube DAILY PRN (Reason: Constipation) atorvastatin 40 mg tablet 40 mg feeding tube HS ipratropium-albuterol 0.5 mg-3 mg(2.5 mg base)/3 mL solution for nebulization 3 ml INHALATION Q6H PRN (Reason: Shortness Of Breath) thiamine HCl (vitamin B1) 100 mg Tablet 100 mg feeding tube DAILY magnesium citrate [Citroma] Solution 296 ml feeding tube DAILY PRN (Reason: Constipation) Rx Instructions: if no results from enema folic acid 1 mg tablet 1 mg feeding tube DAILY calcium carbonate 500 mg/5 mL (1,250 mg/5 mL) Suspension 1,250 mg feeding tube Q6H PRN (Reason: Heartburn) aspirin 81 mg Tablet,Chewable 81 mg feeding tube DAILY acetaminophen 650 mg/20.3 mL Suspension 650 mg feeding tube Q4H PRN (Reason: Pain (Scale Score 1-3)) finasteride 5 mg tablet 5 mg feeding tube DAILY glycopyrrolate 2 mg tablet 2 mg feeding tube Q8H ondansetron HCl 4 mg tablet 4 mg feeding tube Q6H PRN (Reason: nausea and vomiting) amlodipine [Norvasc] 5 mg Tablet 5 mg feeding tube DAILY 30 Days Qty: 30 1RF isosorbide dinitrate 5 mg Tablet 5 mg feeding tube TID 30 Days Qty: 90 1RF levetiracetam 100 mg/mL solution 2,000 mg feeding tube BID 30 Days Qty: 0 1RF lacosamide 10 mg/mL solution 250 mg feeding tube BID 30 Days Qty: 200 2RF Follow-up/Referrals: Tay Arroyo [Other]
== END 2025-05-02 11:12 ==
PROVIDERS: Emergency Provider Emergency Medicine
DX: R11.2 Nausea with vomiting, unspecified (principal); F01.50 Vascular dementia, unspecified severity, without behavioral disturbance, psychotic disturbance, mood disturbance, and anxiety; I48.91 Unspecified atrial fibrillation; G40.909 Epilepsy, unspecified, not intractable, without status epilepticus; N40.0 Benign prostatic hyperplasia without lower urinary tract symptoms; D50.9 Iron deficiency anemia, unspecified; K31.84 Gastroparesis; Z87.440 Personal history of urinary (tract) infections; Z86.718 Personal history of other venous thrombosis and embolism; Z87.01 Personal history of pneumonia (recurrent); Z89.612 Acquired absence of left leg above knee; Z79.82 Long term (current) use of aspirin; Z79.899 Other long term (current) drug therapy
CPT/HCPCS: 36415; 80053; 83605; 83690; 83735; 85025; 86850; 86900; 86901; 96374; 96375; 99284; J2405; J2470